=== PATIENT | male | born 1990 | race Caucasian/White ===

== ENCOUNTER 2024-05-09 12:51 | Emergency (ER) | payer OTHER, SELFPAY ==
--- NOTE | ~2024-05-09 | XR_ITS ---
XR foot RT min 3V Ordering provider: Jeremy Bedolla APRN History: . Rt 3RD AND 4TH TOE INJURY/PAIN . Comparison: None. FINDINGS: BONES: No acute fracture or dislocation. JOINT SPACES: Normal. No tarsal coalition. SOFT TISSUES: Normal. IMPRESSION: No acute osseous abnormality of the right foot. If Patient continues to have symptoms a repeat exam in 10 days is advised. Reviewed, dictated and finalized at location A. DESIGN ENGINEER
--- NOTE | 2024-05-09 12:54 | ED_ITS ---
HPI - Extremity Injury (Lower) General Chief Complaint: Extremity Injury, Lower Stated Complaint: Injured Right Foot Time Seen by Provider: 05/09/24 12:53 Source: patient Mode of arrival: ambulatory Limitations: no limitations History of Present Illness HPI Narrative: Eriberto is a 33-year-old male patient presenting to the clinic today with complaints of a right foot injury/pain-3rd/4thtoe pain. He reports 2 nights ago he stubbed his toe on the corner of a couch injuring the 3rd and 4th toe. Has bruising and mild swelling noted to the 4th toe as well as to the distal metatarsal. Pain with flexion extension of the 3rd and 4th toe. Review of Systems Review of Systems: Pertinent positives per HPI. Patient denies any fever, chills, rash, headache, visual changes, dizziness, cough, runny nose, sore throat, shortness of breath, chest pain, palpitations, nausea, vomiting, diarrhea, constipation, abdominal pain, or any urinary issues. PMFSH Comments At the time of my signature, I reviewed and agree with the nursing past medical, surgical, social, and family history. There is no relevant family history pertinent to the patient complaint. Exam Narrative: General: Well-developed, well nourished, in no apparent distress Head: Normocephalic, atraumatic. Cardio: Regular rate and rhythm, s1 and s2 normal, no murmur appreciated. Resp: Clear to auscultation bilaterally, no rhonchi, rales, wheezing or rubs. Musculoskeletal: No deformity, bruising with mild swelling known to the distal 4th metatarsal and over the 3rd and 4th phalanges, tender to palpation over the 3rd and 4th phalanges, unable to flex or extend the right 4th, muscle strength strong and equal, peripheral pulse strong, no edema, no cyanosis, normal gait and station Course Course Emergency Course: Portions of this record may have been created with voice recognition software. Level of Care: Express Care Visit Vital Signs Vital signs: Vital Signs Oxygen Delivery Room Air 05/09/24 13:11 Temperature 36.4 C 05/09/24 13:12 Pulse Rate 73 05/09/24 13:12 Respiratory Rate 16 05/09/24 13:12 Blood Pressure 116/72 05/09/24 13:12 Pulse Oximetry 98 05/09/24 13:12 Oxygen Delivery Room Air 05/09/24 13:11 Vital signs reviewed MDM - Extremity Injury (Lower) MDM Narrative Medical decision making narrative: At the time of visit patient is resting comfortably on the exam table. Patient appears to be nontoxic. Diagnostics: Right foot x-ray was performed and is negative for any sign of fracture or malalignment of the 3rd or 4th toe Plan: I suspect patient has right 3rd and 4th toe sprains/contusion. Recommend remberto taping the toes together. Supportive measures were discussed with the patient and they voiced understanding discharge instructions and agrees to treatment plan. Return precautions reviewed Differential Diagnosis Differential diagnosis: Likely fracture of toe and other (Contusion, foot fract ure, soft tissue swelling) Discharge Plan Discharge Clinical Impression: Contusion of toe of right foot Qualifiers: Encounter type: initial encounter Toe: lesser toe Damage to nail status: without damage Qualified Code(s): S90.121A - Contusion of right lesser toe(s) without damage to nail, initial encounter Sprain of toe, fourth, right Qualifiers: Encounter type: initial encounter Qualified Code(s): S93.504A - Unspecified sprain of right lesser toe(s), initial encounter Sprain of toe, third, right Qualifiers: Encounter type: initial encounter Qualified Code(s): S93.504A - Unspecified sprain of right lesser toe(s), initial encounter Patient Disposition: Home, Self-Care Condition: Stable Instructions: Antibiotic Form, Sprain (ED), Contusion in Adults (ED) Additional Instructions: X-rays negative for any sign of fracture or malalignment of the right foot I suspect you have a 3rd and 4th toe sprain/contusion. Rest, ice, elevate May remberto tape right 3rd and 4th toes together Tylenol/motrin for pain as discussed. Follow up with your PCP if symptoms persist more than 1 week. Patient Language: Hungarian Follow-up/Referrals: UNKNOWN,DOCTOR [Non-Staff] - Stand Alone Forms: Work/School Release IP Time of Disposition: 13:46 Quality NIHSS Nursing Documentation ED NIHSS nursing documentation: reviewed/agree
[2024-05-09 13:12] VITALS: BP 116/72; PULSE 73; RESP 16; TEMP 36.4; O2SAT 98
--- NOTE | 2024-05-09 14:02 | PC.NURSE ---
+PMS POST JULI TAPE
== END 2024-05-09 13:50 | disposition home or self-care (01) ==
PROVIDERS: Emergency Provider Nurse Practitioner Family
DX: S90.121A Contusion of right lesser toe(s) without damage to nail, initial encounter (principal); S93.504A Unspecified sprain of right lesser toe(s), initial encounter; W22.03XA Walked into furniture, initial encounter; I10 Essential (primary) hypertension; E78.00 Pure hypercholesterolemia, unspecified
CPT/HCPCS: 73630; 99203; G0463

== ENCOUNTER 2024-05-23 11:08 | Emergency (ER) | payer OTHER, SELFPAY ==
[2024-05-23] VITALS (16 sets, daily range): BP systolic 96–177; BP diastolic 62–99; PULSE 70–95; RESP 10–24; TEMP 36.6–36.9; O2SAT 95–100
--- NOTE | ~2024-05-23 | CT_ITS ---
EXAMINATION: CTA chest abdomen pelvis DATE: 05/23/2024 12:46 ELECTRIC CONTAINER TESTER INDICATION: Nausea vomiting and diarrhea with abdominal and back pain TECHNIQUE: Computed tomographic angiography (CTA) of the chest was performed, along with multiple con tiguous axial images of the abdomen and pelvis with 100 mL Omnipaque-350 intravenous contrast. The do se-length product was 996.94 mGy-cm. Maximum intensity projection 3D-reconstructions of the aorta and other arteries were constructed by the technologist on a separate workstation. FINDINGS/OBSERVATIONS: PULMONARY ARTERIES: No filling defect is identified within the main or proximal pulmonary artery. The main pulmonary artery is not enlarged. THORACIC AORTA: The great vessels are intact. Stent graft within the thoracic and abdominal aorta ending approximately 3 cm above the bifurcation. Please see additional comments within the vascular section described below for further evaluation. LUNGS: The lungs are clear. MEDIASTINUM: No morphologically suspicious or pathologically enlarged lymph nodes are identified with in the mediastinum or bilateral axilla. BONES OF THE CHEST: No acute fracture. No significant degenerative disease. No lytic or blastic lesions. HEART: The heart is of normal size, without pericardial effusion. LIVER: A 2.5 cm focus of decreased attenuation is identified within segment 8 of the liver with centripetal filling, most consistent with a flash filling hemangioma. The remainder of the liver enhances homogeneously and is not enlarged measuring 17 cm in longitudinal dimension. GALLBLADDER AND BILIARY SYSTEM: The gallbladder is distended, and otherwise unremarkable (without surrounding inflammatory change or calcified stones). PANCREAS: The pancreas enhances homogeneously without ductal dilatation. SPLEEN: Punctate calcifications identified within the splenic parenchyma, suggesting prior granulomatous dise ase. The remainder of the spleen otherwise enhances homogeneously and is not enlarged measuring 9 cm in longitudinal dimension. KIDNEYS: Multiple 1 and 2 mm stones are identified within the bilateral kidneys. The remainder of the bilateral kidneys otherwise enhance symmetrically without hydronephrosis or obst ructing renal calculi. ADRENAL GLANDS: Unremarkable. GASTROINTESTINAL TRACT: No mural thickening or surrounding inflammatory change is identified within the colon or the visualiz ed small bowel. Residual oral contrast is identified within the cecum and transverse colon suggesting additional imaging performed at an outside institution. APPENDIX: The air-filled appendix is of normal caliber (axial series, images 197 through 207). VASCULATURE: The abdominal aorta measures 36 mm in anterior to posterior dimension at the level of the diaphragmat ic hiatus and collapses to 18 mm at the level of the superior endplate of T12. A large endoleak is suspected at this level, with the sac supplying flow to the celiac axis. The origin of the celiac axis is narrowed, as it originates to the left of midline, and then extends to the right of midline to supply the upper mesenteric structures. The origins of the superior mesenteric artery and bilateral renal arteries originate within the stent . Below the stent at the level of L3 is an additional dissection which resolves in the proximal left il iac artery. No aneurysmal dilatation or additional dissection is present. LYMPH NODES: No pathologically enlarged or morphologically suspicious lymph nodes within the retroperitoneum or at the root of the mesentery. PELVIC STRUCTURES: The bladder is distended, and otherwise unremarkable. The prostate gland is not enlarged. BODY WALL AND MUSCULOSKELETAL: No significant degenerative disease within the lower thoracic or lumbosacral spine. 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 No secondary sequelae to suggest mesenteric ischemia is detected on today's study. Query the presence of prior imaging, as this is not an acute finding. These findings were discussed with SANCHEZ Orona at 1:00 PM on 05/23/2024. Reviewed, dictated and finalized at location A. 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 No secondary sequelae to suggest mesenteric ischemia is detected on today's john dy. Query the presence of prior imaging, as this is not an acute finding. These findings were discussed with SANCHEZ Orona at 1:00 PM on 05/23/2024.
[2024-05-23 11:41] LABS: Basophils Percent Auto 0.4 % (0.2-1.2); Eosinophils Percent Auto 0.2 % (0-4.4); Hematocrit 37.5 % (42.0-52.0); Hemoglobin 13.1 g/dL (14.0-18.0); Immature Granulocyte Absolute 0.05 K/mm3 (0.00-0.031); Immature Granulocyte Percent A 0.5 % (0-0.5); Lymphocytes Absolute Auto 1.43 K/mm3 (0.9-3.2); Lymphocytes Percent Auto 15.3 % (18.3-44.2); Mean Corpuscular HGB Conc 34.9 g/dl (32-36); Mean Corpuscular Hemoglobin 30.8 pg (26-34); Mean Corpuscular Volume 88.2 fl (80-100); Monocytes Percent Auto 10.1 % (2.6-8.5); Neutrophils Absolute Auto 6.9 K/mm3 (1.3-6.7); Neutrophils Percent Auto 73.5 % (45.5-73.1); Platelet Count Result 256 k/mm3 (150-375); Red Blood Count 4.25 M/mm3 (4.6-6.20); Red Cell Distribution Width 12.7 % (11.5-14.5); White Blood Count 9.4 K/mm3 (4.5-10.0)
--- NOTE | 2024-05-23 11:44 | ED.ABDPAIN ---
HPI - Abdominal Pain General Chief Complaint: Abdominal Pain <Angelica Michael PA-C - Last Filed: 05/23/24 16:56> Stated Complaint: back, abd pain <Angelica Michael PA-C - Last Filed: 05/23/24 16:56> Time Seen by Provider: 05/23/24 11:13 <Angelica Michael PA-C - Last Filed: 05/23/24 16:56> Source: patient <Angelica Michael PA-C - Last Filed: 05/23/24 16:56> Mode of arrival: ambulatory <Angelica Michael PA-C - Last Filed: 05/23/24 16:56> Limitations: no limitations <Angelica Michael PA-C - Last Filed: 05/23/24 16:56> History of Present Illness HPI narrative: This is a 34 year review of the emergency department for abdominal pain and back pain. Ongoing over the last 4 days. Reports associated nausea and vomiting. He has been evaluated at multiple ERs for this complaint without a cause found. He does have history of aortic dissection and kidney stones. Denies dysuria or hematuria. <Angelica Michael PA-C - Last Filed: 05/23/24 16:56> Related Data Allergies/Adverse Reactions: Allergies Allergy/AdvReac Type Severity Reaction Status Date / Time amoxicillin AdvReac Rash Verified 05/23/24 11:59 escitalopram (From Lexapro) AdvReac Swelling Verified 05/23/24 11:59 of Lip/Tongue/Throat <Angelica Michael PA-C - Last Filed: 05/23/24 16:56> Review of Systems Review of Systems: CONSTITUTIONAL: Denies fever GASTROINTESTINAL: Reports abdominal pain, nausea, vomiting. Denies diarrhea. GENITOURINARY: Denies dysuria or hematuria. <Angelica Michael PA-C - Last Filed: 05/23/24 16:56> All systems reviewed & are unremarkable except as noted in HPI and below <Angelica Michael PA-C - Last Filed: 05/23/24 16:56> PMFSH Past Medical History Medical History: Medical History (Updated 05/23/24 @ 16:56 by Angelica Michael PA-C) History of kidney stones History of aortic dissection <Angelica Michael PA-C - Last Filed: 05/23/24 16:56> Social History Social History: Social History (Updated 05/23/24 @ 11:45 by Angelica Michael PA-C) Substance use: current Substance use type: marijuana <Angelica Michael PA-C - Last Filed: 05/23/24 16:56> Exam Narrative: GENERAL: Uncomfortable appearing, well-nourished, and in no acute distress. HEAD: Normocephalic, atraumatic. EYES: EOMI. CHEST: Clear to auscultation. No respiratory distress. No wheezes rales or rhonchi HEART: Regular rate and rhythm. No murmur heard. Normal peripheral pulses. ABDOMEN: Soft, nondistended, normal active bowel sounds. Tender to palpation throughout the abdomen, without guarding EXTREMITIES: Normal range of motion. No edema. SKIN: Warm, dry, no rash. NEURO: No focal deficits. Alert and oriented x3. PSYCH: Normal mood and affect <Angelica Michael PA-C - Last Filed: 05/23/24 16:56> Course Course Emergency Course: patient updated on his workup and recommendation for transfer <Angelica Michael PA-C - Last Filed: 05/23/24 16:56> PROFESSOR OF BUSINESS ADMINISTRATION/PA Physician Supervision For this patient encounter, I reviewed the PROFESSOR OF BUSINESS ADMINISTRATION or PA documentation, treatment plan, and medical decision making; and I had [id number] time with this patient. <Narciso rBewster MD - Last Filed: 05/23/24 17:25> Consultations Consultation #1: Spoke with vascular surgery, Dr. Lamar about patient and workup. Will transfer patient for further evaluation and management. ICU fellow accepts patient as transfer <Angelica Michael PA-C - Last Filed: 05/23/24 16:56> Date: 05/23/24 <Angelica Michael PA-C - Last Filed: 05/23/24 16:56> Vital Signs Vital signs: Vital Signs Temperature 97.9 F 05/23/24 11:13 Pulse Rate 95 05/23/24 11:13 Respiratory Rate 14 05/23/24 11:13 Blood Pressure 151/81 H 05/23/24 11:13 Pulse Oximetry 97 05/23/24 11:13 Oxygen Delivery Room Air 05/23/24 11:13 Temperature 98.3 F 05/23/24 17:11 Pulse Rate 70 05/23/24 17:11 Respiratory Rate 12 05/23/24 17:11 Blood Pressure 104/72 05/23/24 17:11 Pulse Oximetry 96 05/23/24 17:11 Oxygen Delivery Room Air 05/23/24 11:13 <Angelica Michael PA-C - Last Filed: 05/23/24 16:56> Vital Signs Temperature 97.9 F 05/23/24 11:13 Pulse Rate 95 05/23/24 11:13 Respiratory Rate 14 05/23/24 11:13 Blood Pressure 151/81 H 05/23/24 11:13 Pulse Oximetry 97 05/23/24 11:13 Oxygen Delivery Room Air 05/23/24 11:13 Temperature 98.3 F 05/23/24 17:11 Pulse Rate 70 05/23/24 17:11 Respiratory Rate 12 05/23/24 17:11 Blood Pressure 104/72 05/23/24 17:11 Pulse Oximetry 96 05/23/24 17:11 Oxygen Delivery Room Air 05/23/24 11:13 <Narciso Brewster MD - Last Filed: 05/23/24 17:25> MDM - Abdominal Pain MDM Narrative Medical decision making narrative: Patient presents the emergency department for abdominal pain, nausea and vomiting. Ongoing over the last couple of days. He is he is afebrile and nontoxic appearing. Vitals are stable. Cbc without leukocytosis. Metabolic panel with mild hypokalemia. Urine without evidence of infection. CTA chest abdomen pelvis shows a type 2 endoleak. Spoke with vascular surgery, Dr. Lamar about patient and workup. Will transfer patient for further evaluation and management. ICU fellow accepts patient as transfer <Angelica Michael PA-C - Last Filed: 05/23/24 16:56> Differential Diagnosis Differential diagnosis: Likely diverticulitis and other (aortic dissection, kidney stone) <Angelica Michael PA-C - Last Filed: 05/23/24 16:56> Lab Data Attestation: I reviewed the patient's lab results. <Angelica Michael PA-C - Last Filed: 05/23/24 16:56> Result diagrams: 05/23/24 11:34 05/23/24 11:34 <Angelica Michael PA-C - Last Filed: 05/23/24 16:56> Labs: Lab Results 05/23/24 05/23/24 Range/Units 11:34 14:26 WBC 9.4 (4.5-10.0) K/mm3 RBC 4.25 L (4.6-6.20) M/mm3 Hgb 13.1 L (14.0-18.0) g/dL Hct 37.5 L (42.0-52.0) % MCV 88.2 (80-100) fl MCH 30.8 (26-34) pg MCHC 34.9 (32-36) g/dl RDW 12.7 (11.5-14.5) % Plt Count 256 (150-375) k/mm3 MPV 9.0 (7.4-10.4) fl Immature Gran % (Auto) 0.5 (0-0.5) % Neut % (Auto) 73.5 H (45.5-73.1) % Lymph % (Auto) 15.3 L (18.3-44.2) % [place] % (Auto) 10.1 H (2.6-8.5) % Eos % (Auto) 0.2 (0-4.4) % Baso % (Auto) 0.4 (0.2-1.2) % Lymph # (Auto) 1.43 (0.9-3.2) K/mm3 [place] # (Auto) 1.0 H (0.1-0.6) K/mm3 Eos # (Auto) 0.0 (0-0.3) K/mm3 Baso # (Auto) 0.0 (0.0-0.1) K/mm3 Abs Immat Gran (auto) 0.05 H (0.00-0.031) K/mm3 Absolute Neuts (auto) 6.9 H (1.3-6.7) K/mm3 Absolute Nucleated RBC 0.000 (0.0-0.012) K/mm3 Nucleated RBC % 0.0 (0.0-0.2) % Sodium 135 L (137-145) mmol/L Potassium 3.1 L (3.4-5.0) mmol/L Chloride 106 (98-107) mmol/L Carbon Dioxide 21 L (22-30) mmol/L Anion Gap 8 (4-12) mmol/L BUN 15 (9-20) mg/dL Creatinine 1.00 (0.7-1.3) mg/dL Estim Creat Clear Calc 94 ml/min Estimated GFR > 60 (59 - ) Glucose 94 (65-110) mg/dL Lactic Acid 0.6 L (0.7-2.0) mmol/L Calcium 9.5 (8.4-10.2) mg/dL Magnesium 1.9 (1.6-2.3) mg/dL Total Bilirubin 1.7 H (0.2-1.3) mg/dL AST 21 (17-59) U/L ALT 20 (6-50) U/L Alkaline Phosphatase 94 (38-126) U/L Total Protein 8.0 (6.3-8.2) g/dL Albumin 4.7 (3.5-5.1) g/dL Lipase 45 (23-300) U/L Urine Color Dark yellow (Yellow) Urine Appearance Clear (Clear) Urine pH 6.0 (5.0-9.0) Ur Specific [place] 1.022 (1.001-1.035) Urine Protein 1+ H (Negative) mg/dL Urine Glucose (UA) Negative (Negative) mg/dL Urine Ketones 1+ H (Negative) mg/dL Ur Blood (Man) Negative (Negative) Urine Nitrate Negative (Negative) Urine Bilirubin Negative (Negative) Urine Urobilinogen 1.0 (<2.0) mg/dL Add Ur Microanalysis Reviewed Leukocyte Esterase Rfl Negative (Negative) SHARON/UL Urine RBC 0-2 (0-2) /hpf Urine WBC 0-5 (0-3) /hpf Ur Squamous Epith Cells Occasional (Few) /hpf Urine Bacteria None seen /hpf Urine Casts 0-2 Urine Mucus Present /lpf <Angelica Michael PA-C - Last Filed: 05/23/24 16:56> Lab Results 05/23/24 05/23/24 Range/Units 11:34 14:26 WBC 9.4 (4.5-10.0) K/mm3 RBC 4.25 L (4.6-6.20) M/mm3 Hgb 13.1 L (14.0-18.0) g/dL Hct 37.5 L (42.0-52.0) % MCV 88.2 (80-100) fl MCH 30.8 (26-34) pg MCHC 34.9 (32-36) g/dl RDW 12.7 (11.5-14.5) % Plt Count 256 (150-375) k/mm3 MPV 9.0 (7.4-10.4) fl Immature Gran % (Auto) 0.5 (0-0.5) % Neut % (Auto) 73.5 H (45.5-73.1) % Lymph % (Auto) 15.3 L (18.3-44.2) % [place] % (Auto) 10.1 H (2.6-8.5) % Eos % (Auto) 0.2 (0-4.4) % Baso % (Auto) 0.4 (0.2-1.2) % Lymph # (Auto) 1.43 (0.9-3.2) K/mm3 [place] # (Auto) 1.0 H (0.1-0.6) K/mm3 Eos # (Auto) 0.0 (0-0.3) K/mm3 Baso # (Auto) 0.0 (0.0-0.1) K/mm3 Abs Immat Gran (auto) 0.05 H (0.00-0.031) K/mm3 Absolute Neuts (auto) 6.9 H (1.3-6.7) K/mm3 Absolute Nucleated RBC 0.000 (0.0-0.012) K/mm3 Nucleated RBC % 0.0 (0.0-0.2) % Sodium 135 L (137-145) mmol/L Potassium 3.1 L (3.4-5.0) mmol/L Chloride 106 (98-107) mmol/L Carbon Dioxide 21 L (22-30) mmol/L Anion Gap 8 (4-12) mmol/L BUN 15 (9-20) mg/dL Creatinine 1.00 (0.7-1.3) mg/dL Estim Creat Clear Calc 94 ml/min Estimated GFR > 60 (59 - ) Glucose 94 (65-110) mg/dL Lactic Acid 0.6 L (0.7-2.0) mmol/L Calcium 9.5 (8.4-10.2) mg/dL Magnesium 1.9 (1.6-2.3) mg/dL Total Bilirubin 1.7 H (0.2-1.3) mg/dL AST 21 (17-59) U/L ALT 20 (6-50) U/L Alkaline Phosphatase 94 (38-126) U/L Total Protein 8.0 (6.3-8.2) g/dL Albumin 4.7 (3.5-5.1) g/dL Lipase 45 (23-300) U/L Urine Color Dark yellow (Yellow) Urine Appearance Clear (Clear) Urine pH 6.0 (5.0-9.0) Ur Specific [place] 1.022 (1.001-1.035) Urine Protein 1+ H (Negative) mg/dL Urine Glucose (UA) Negative (Negative) mg/dL Urine Ketones 1+ H (Negative) mg/dL Ur Blood (Man) Negative (Negative) Urine Nitrate Negative (Negative) Urine Bilirubin Negative (Negative) Urine Urobilinogen 1.0 (<2.0) mg/dL Add Ur Microanalysis Reviewed Leukocyte Esterase Rfl Negative (Negative) SHARON/UL Urine RBC 0-2 (0-2) /hpf Urine WBC 0-5 (0-3) /hpf Ur Squamous Epith Cells Occasional (Few) /hpf Urine Bacteria None seen /hpf Urine Casts 0-2 Urine Mucus Present /lpf <Narciso Brewster MD - Last Filed: 05/23/24 17:25> Imaging Data Radiologist's impression: ITS Impressions Chest/Abdomen/Pelvis CTA 05/23/24 12:46 IMPRESSION: 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 No secondary sequelae to suggest mesenteric ischemia is detected on today's study. Query the presence of prior imaging, as this is not an acute finding. These findings were discussed with SANCHEZ Orona at 1:00 PM on 05/23/2024. 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 No secondary sequelae to suggest mesenteric ischemia is detected on today's study. Query the presence of prior imaging, as this is not an acute finding. These findings were discussed with SANCHEZ Orona at 1:00 PM on 05/23/2024. <Narciso Brewster MD - Last Filed: 05/23/24 17:25> Critical Care Time Critical Care Time Critical Care Time: No <Angelica Michael PA-C - Last Filed: 05/23/24 16:56> Discharge Plan Discharge Clinical Impression: Endoleak <Angelica Michael PA-C - Last Filed: 05/23/24 16:56> Patient Disposition: Acute Care Hospital <Angelica Michael PA-C - Last Filed: 05/23/24 16:56> Condition: Stable <Angelica Michael PA-C - Last Filed: 05/23/24 16:56> Patient Language: Thai <Angelica Michael PA-C - Last Filed: 05/23/24 16:56> Follow-up/Referrals: PHYSICIAN,STRATEGIC COMMUNICATIONS SPECIALIST [Non-Staff] - <Angelica Michael PA-C - Last Filed: 05/23/24 16:56>
[2024-05-23] MEDS: MORPHINE SULFATE (*CRX) 4 MG/ML INJ IV PUSH (11:52)
[2024-05-23] MEDS: ONDANSETRON INJ 4 MG/2 ML VIAL IV PUSH (11:57)
[2024-05-23 11:58] LABS: Alanine Aminotransferase 20 U/L (6-50); Albumin Level 4.7 g/dL (3.5-5.1); Alkaline Phosphatase 94 U/L (38-126); Anion Gap 8 mmol/L (4-12); Aspartate Amino Transferase 21 U/L (17-59); Bilirubin,Total 1.7 mg/dL (0.2-1.3); Blood Urea Nitrogen 15 mg/dL (9-20); Calcium 9.5 mg/dL (8.4-10.2); Carbon Dioxide 21 mmol/L (22-30); Chloride 106 mmol/L (98-107); Estimated CRCL calculation 94 ml/min; Estimated Glomerular Filt Rate > 60; Glucose 94 mg/dL (65-110); Lipase 45 U/L (23-300); Potassium 3.1 mmol/L (3.4-5.0); Sodium 135 mmol/L (137-145)
[2024-05-23 12:02] LABS: Add Urine Microscopic? YES; Appearance Urine Clear (Clear); Bacteria Urine None Seen /hpf; Bilirubin Urine Negative (Negative); Blood Urine Negative (Negative); Color Urine Dark Yellow (Yellow); Glucose Urine UA Negative (Negative); Ketones Urine 1+ mg/dL (Negative); Leukocyte Esterase Ur Negative LEU/UL (Negative); Mucus Urine Present /lpf; Need Manual Microscopic Reviewed; Nitrate Urine Negative (Negative); Non Pathogenic Casts 0-2; Protein Urine 1+ mg/dL (Negative); RBC Urine 0-2 /hpf (0-2); Specific Grav Ur 1.022 (1.001-1.035); Squamous Epithelial Cell Urine Occasional /hpf (Few); WBC Urine 0-5 /hpf (0-3)
[2024-05-23] MEDS: Please add drug allergy info to patient profile. 1 EACH XX (12:02)
[2024-05-23] MEDS: SODIUM CHLORIDE 0.9% IV 1,000 ML 999 ML IV CONT (12:10)
[2024-05-23] MEDS: HYDROmorphone HCL INJ (*CRX) 1 MG/ML SYR 0.5 MG IV PUSH ×5 (12:27→18:56)
[2024-05-23 12:29] LABS: Magnesium 1.9 mg/dL (1.6-2.3)
[2024-05-23] MEDS: LABETALOL HCL INJ 100 MG/20 ML VIAL 20 MG IV PUSH (14:05)
[2024-05-23 14:44] LABS: Lactic Acid Reflex 0.6 mmol/L (0.7-2.0)
[2024-05-23] MEDS: POTASSIUM CHLORIDE 20 MEQ ER TABLET 40 MEQ PO (17:03)
--- OUTSIDE RECORDS SUMMARY | 2024-05-30 05:33 | XMS_ITS | Clinical Summary ---
Author Organization [facility] Address [address] [place] [address] Care Team Providers Care [employer] Name Role Phone Unavailable Primary Care Provider Unavailabl e Source Comments [facility],non-owned Affiliates and Associated Physician Practices is amultiple site organization consisting of ambulatory clinics and hospital sitesin [place], [place], [place] and [place]. This disclosure is being madepursuant to the Care Everywhere program and may not contain all information available regarding this patient. Last updated 18.[facility] Social History Tobacco Use Types Packs/Day Years Used Date Smoking Tobacco: Never Assessed Sex and Gender Information Value Date Recorded Sex Assigned at Not on file Gender Identity Not on file Sexual Orientation Not on file Plan of Treatment Health Maintenance Due Date Last Done Comments HIV SCREENING 2007 HEPATITIS C SCREENING 05/07/2010 DTAP/TDAP/TD VACCINES (1 - Tdap) 2011 HEPATITIS B VACCINE (1 of 3 - 19+ 3-dose series) 2011 DEPRESSION SCREENING 05/30/2023 COVID-19 VACCINE (1 - 2023-2 5 season) 2024 INFLUENZA VACCINE (#1) 2024 ZOSTER VACCINE (1 of 2) 2042 HIB VACCINE Aged Out No longer eligi ble based on patient's age to complete this topic HPV VACCINE Aged Out No longer eligi ble based on patient's age to complete this topic MENINGOCOCCAL VACCINE Aged Out No pat matty eligible based on patient's age to complete this topic PNEUMOCOCCAL VACCINE Aged Out No long er eligible based on patient's age to complete this topic
--- OUTSIDE RECORDS SUMMARY | 2024-05-30 05:33 | XMS_ITS | Referral Summary ---
Author Organization [facility] Address [address] [place] [address] Care Team Providers Care Scout Professional Sports Name Role Phone Unavailable Primary Care Provider Unavailabl e Source Comments [facility],non-owned Affiliates and Associated Physician Practices is amultiple site organization consisting of ambulatory clinics and hospital sitesin [place], [place], [place] and [place]. This disclosure is being madepursuant to the Care Everywhere program and may not contain all information available regarding this patient. Last updated 18.[facility] [employer] Social History Tobacco Use Types Packs/Day Years Used Date Smoking Tobacco: Never Assessed Sex and Gender Information Value Date Recorded Sex Assigned at Not on file Gender Identity Not on file Sexual Orientation Not on file Plan of Treatment Not on file
--- OUTSIDE RECORDS SUMMARY | 2024-05-30 05:33 | XMS_ITS | Patient Health Summary ---
Author Organization [facility] [place] Address [address] [place] [address] Care Team Providers Care Leak Inspector Name Role Phone Unavailable Primary Care Provider Unavailabl e Note from [facility],non-owned Affiliates and Associated Physician Practices is amultiple site organization consisting of ambulatory clinics and hospital sitesin [place], [place], [place] and [place]. This disclosure is being madepursuant to the Care Everywhere program and may not contain all information available regarding this patient. Last updated 18.[facility] [place] Social History Tobacco Use Types Packs/Day Years Used Date Smoking Tobacco: Never Assessed Sex and Gender Information Value Date Recorded Sex Assigned at Not on file Gender Identity Not on file Sexual Orientation Not on file
--- OUTSIDE RECORDS SUMMARY | 2024-05-30 05:33 | XMS_ITS | Encounter Summary ---
Author Organization [facility] Address [address] [place] [address] Care Team Providers Care Rod Tape Operator Name Role Phone Unavailable Primary Care Provider Unavailabl e Encounter Details Date Type Department Care Team (Latest Contact Info) Description 08/15/2023 Travel Social History Tobacco Use Types Packs/Day Years Used Date Smoking Tobacco: Never Assessed Sex and Gender Information Value Date Recorded Sex Assigned at Not on file Gender Identity Not on file Sexual Orientation Not on file documented as of this encounter Plan of Treatment Not on file documented as of this encounter Visit Diagnoses Not on filedocumented in this encounter
--- OUTSIDE RECORDS SUMMARY | 2024-05-30 05:34 | XMS_ITS | Continuity of Care Document ---
Author Organization [facility] () Address [address] [place] [address] Care Team Providers Care Director Organizational Name Role Phone [facility] Urologist WARNER MARTINEZ Acid Bath Mixer FAUSTINO HERRERA Vascular Surgeon Assessment Encounter Date Assessment Date Assessment LastModified by Organization Details LastModified Time 03/14/2024 03/14/2024 45yo M presents for FU. Last seen by 10-26-23. Hx of depression, BP, aggression/anger , mcc, [aortic dissection, GFR=33, CR 2.59 (09/28)]; one psych hospitalization. Symptom Hx of disturbed family relations, impulsive/trigge red anger escalating to verbally abuse and fighting. Drugs THC daily, 2 cokes/d; Hx of cocaine abuse. C/C this visit is to establish care. Top patient priority is to let things go [reduce impulsive anger]. IMPRESSION: Mood disorder, CPTSD, difficulty controlling anger, insomnia. On edge young adult having much difficulty understanding the world/people around him, jose in communication. Constantly frustrated and angry d/t disagreement with others' stated reality. States I have a lot of thoughts in my head. May benefit from therapy but declines at this time. PLAN: - Target: borderline psychosis (thoughts in his head that he thinks he communicates.... some disassociation.. ..distorted impression of reality); will stay with meds he is on for now. Wants diff PCP. Will notify Dr. Strickland about Pt's request for transfer. - Continue: amitriptyline 25mg PO HS, quetiapine 50mg PO HS - INCREASE: lamotrigine from 25mg to 50mg PO qdfor mood/anger stability/labili ty cont latuda for anger, non liner communication to others - Verbally supported his efforts to keep himself healthier. - Reminded about ADR and SE of lamictal, jose rash; and of NMS. - Referred to noone (Pt declined talking to someone) - Consider: [Note to provider: lamictal, abilify, trazodone okay c CKD...BUT CR 1.03, gfr 100]. Adding trazodone, tapering amitriptyline. Maintain seroquel if Pt desires (e.g. for sleep or mood). Assess for BPD. - Labs: CR 1.03, gfr 100 (was CR 2.59 09/28, GFR=33. Freedom on 11/08.) - FU: 05/03 per Pt request.How is anger still? Bad dreams? taking meds consistently? [email or web address] Not available 03/28/2024 02:00:16 Plan of Treatment Reminders Order Date Submit Date Provider Last Modified By Organization Details Last Modified Time Details Appointments ANY 30 2024 02:30P M MARCELA CLEVELAND PA-C Not available Not available Not available NEW PATIENT 60 2024 09:30A M Payal lopez NP Not available Not available Not available Lab None recorded. Referral None recorded. Procedures None recorded. Surgeries None recorded. Imaging None recorded. Medication Orders lurasidon e 20 mg tablet 2023 [facility]/Pharmacy #[id number], [address], [place], [address], 03/14/2024 11:13:05 lamotrigi ne 25 mg tablet 2023 024 [facility]/Pharmacy #[id number], [address], [place], [address], 03/14/2024 11:13:03 Patient Targets Encounter Date Encounter Id Patient Goals Patient Target Last Modified By Organization Details Last Modified Time to let things go. [email or web address] Not available 03/14/2024 01:21:11 Patient Instructions Encounter Date Encounter Id Patient Instructions Last Modified By Organization Details Last Modified Time 03/14/2024 [id number] Pt. advised to call 911 or go to a local Emergency Department with any SI or HI, thoughts of self harm or any psychiatric emergency. Pt. is deemed safe and appropriate for continued out patient treatment. Pt. advised of the risk benefit ratio of medication, possible side effects and interactions of the meditations. Pt. wishes to continue with the treatment plan. Pt. advised to call or come in sooner than the scheduled appt. if there are any worsening of symptoms or problems with the medication. [email or web address] Not available 03/14/2024 01:21:11 Reason for Referral None Reported. Results Created Date Observation Date Name Description Value Unit Range Abnormal Flag Note LastModifiedBy Organization Detail LastModifiedTime 05/19/20 24 05/19/2024 CT, abdom en + pelvi s, w/ contr ast No observ ation [facility] ed[email or web address] [address] [place], [address], 05/21/2024 07:12:39 05/19/20 24 05/19/2024 CT, angio gram, abdom en + pelvi s, w/ contr ast No observ ation record ed. [email or web address] [place], [address], 05/21/2024 10:58:36 Result Notes None recorded. Problems Name Problem SNOMED Code Status Onset Date Resolution Date Notes Provider Name and Address Organization Details Recorded Time Vitiligo 02506832 Active 2020 Carl Strickland MD Attn: Daryn medina,[address] [facility], [place], [address], [place] [facility] 4 20:08:14 Depressive disorder 95014720 Active 2016 Carl Strickland MD Attn: Daryn medina,[address] [facility], [place], [address], [place] [facility] 4 20:08:14 History of head injury 419633684 Active 2020 Carl Strickland MD Attn: Joseemmie medina,[address] [facility], [place], [address], [place] [facility] 4 20:08:13 Headache 20834877 Active 2020 Carl Strickland MD Attn: Joseemmie medina,[address] [facility], [place], [address], [place] [facility] 4 20:08:14 Increased blood pressure 50632593 Active 2020 Carl Strickland MD Attn: Daryn medina,[address] [facility], [place], [address], [place] [facility] 4 20:08:14 History of calculus of kidney 448844053 Active 2020 Carl Strickland MD Attn: Daryn medina,[address] [facility], [place], [address], [place] [facility] 4 20:08:14 Fracture of hand 24012141 Active 2020 Carl Strickland MD Attn: Daryn medina,[address] [facility], [place], [address], [place] [facility] 4 20:08:14 Influenza vaccination declined 667734329 Active 2023 Carl Strickland MD Attn: Joseemmie medina,[address] [facility], [place], [address], [place] [facility] 4 20:08:14 SARS-CoV-2 vaccination declined 0858687031 Active 2023 Carl Strickland MD Attn: Joseemmie medina,[address] [facility], [place], [address], [place] [facility] 4 20:08:13 Essential hypertensio n 00002441 Active 2023 Carl Strickland MD Attn: Joseemmie medina,[address] [facility], [place], [address], [place] [facility] 4 20:08:14 Dissection of aortic arch 7970164728595 8 Active Carl Strickland MD Attn: Joseemmie medina,[address] [facility], [place], [address], [place] [facility] 4 20:08:14 Chest pain 71699165 Active Carl Strickland MD Attn: Joseemmie medina,[address] [facility], [place], [address], [place] [facility] 4 20:08:14 Chronic pain syndrome 010063249 Active 2023 Carl Strickland MD Attn: Daryn adam,[address] [facility], [place], [address], [place] [facility] 4 20:46:46 Neuropathy 289416759 Active 2023 Carl Strickland MD Attn: Daryn adam,[address] [facility], [place], [address], [place] [facility] 4 20:46:48 Physical decondition ing 7209714432224 2 Active 2023 Carl Strickland MD Attn: Daryn adam,[address] [facility], [place], [address], [place] [facility] 4 20:46:53 Chronic back pain 222180874 Active 2023 Carl Striclkand MD Attn: Daryn medina,[address] [facility], [place], [address], [place] [facility] 4 20:46:54 Renal insufficien cy 290636952 Active 2023 Carl Strickland MD Attn: Daryn g,[address] [facility], [place], [address], [place] [facility] 4 20:51:24 Complex posttraumat ic stress disorder 650061248 Active 2023 SERINA MICHAEL Attn: Daryn medina,[address] [facility], [place], [address], [place] [facility] 4 19:57:21 Difficulty controlling anger 329534626 Active 2023 SERINA MICHAEL Attn: Daryn medina,[address] [facility], [place], [address], [facility] - [facility] 4 19:57:23 Mood disorder 16610986 Active 2023 SERINA MICHAEL Attn: Daryn medina,[address] [facility], [place], [address], [facility] - [facility] 4 19:57:25 Persistent insomnia 116585319 Active 2023 SERINA MICHAEL Attn: Daryn medina,[address] [facility], [place], [address], [facility] - SI 18:51:00 Problem Notes None recorded. Procedures Surgical History Date Name Laterality Status Provider Name and Address Organization Details Recorded Time 07/04/19 cystoscopic ureteric stent procedure completed Carl Strickland MD Attn: Accounting,[address] [place], [place], [address] [place] [address], [facility] 07/13/2023 20:39:29 lithotripsy completed Carl Strickland MD Attn: Accounting,[address] [place], [place], [address] [place] [address], [facility] 07/13/2023 11:13:47 transcatheter aortic valve implantation completed Carl Strickland MD Attn: Accounting,[address] [place], [place], [address] [place] [address], [facility] - [facility] 07/13/2023 11:31:14 Imaging Results None recorded. Procedure Notes None recorded. Medical Equipment None Reported. Allergies Allergen ID Allergen Name Allergen Category Reaction Reaction Severity Criticality Documentation Date Start Date Code Code System Note Provider Name and Address Organization Details Recorded Time 16590602 lisinopri l medicatio n facial swelling Not available Not available 07/13/2023 07882 RxNorm cough , lip swell ing Carl Strickland MD Attn: Daryn medina,[address], [place], [address], [facility] - [facility] 4 20:08:02 701509 amoxicill in medicatio n rash Not available Not available 07/13/2023 723 RxNorm Carl Strickland MD Attn: Daryn medina,[address], [place], [address], [facility] - [facility] 4 20:08:02 Medications Name Sig Start Date Stop Date Status Note LastModified by Organization Details LastModified Time quetiapine 25 mg tablet TAKE 1 TABLET BY MOUTH EVERYDAY AT BEDTIME 12/06 completed Not Available Not Available Not Available cyclobenzap rine 10 mg tablet 09/28 completed Not Available Not Available Not Available carvedilol 25 mg tablet TAKE 1 TABLET BY MOUTH TWICE A DAY WITH MEALS 09/28 completed Not Available Not Available Not Available gabapentin 600 mg tablet TAKE 1 TABLET BY MOUTH THREE TIMES A DAY 09/28 completed Not Available Not Available Not Available carvedilol 12.5 mg tablet TAKE 1 TABLET BY MOUTH TWICE A DAY DIRECTED FOR 90 DAYS 09/28 completed Not Available Not Available Not Available labetalol 200 mg tablet TAKE 2 TABLETS BY MOUTH 2 TIMES A DAY. active Not Available Not Available No t Available oxybutynin chloride ER 10 mg tablet,exte nded release 24 hr Take 1 tablet every day by oral route for 14 days. active Not Available Not Available No t Available hydrocodone 5 mg-acetamin ophen 325 mg tablet TAKE 1 TABLET BY MOUTH EVERY 6 HOURS NEEDED FOR PAIN 10/25 completed Not Available Not Available Not Available meloxicam 15 mg tablet TAKE 1 TABLET BY MOUTH DAILY FOR 14 DAYS. 09/28 completed Not Available Not Available Not Available lisinopril 20 mg tablet 07/13 completed Not Available Not Available Not Available ondansetron HCl 4 mg tablet active Not Available Not Available Not Available hydralazine 25 mg tablet 07/13 completed Not Available Not Available Not Available amlodipine 5 mg tablet 07/13 completed Not Available Not Available Not Available acetaminoph en 500 mg tablet TAKE 2 TABLETS BY MOUTH EVERY 6 HOURS 10/25 completed Not Available Not Available Not Available lamotrigine 25 mg tablet TAKE 2 TABLETS BY MOUTH EVERY DAY DIRECTED FOR 30 DAYS active Not Available Not Available No t Available meloxicam 7.5 mg tablet TAKE 1 TABLET BY MOUTH EVERY DAY active Not Available Not Available No t Available hydrocortis one 2.5 % topical cream with perineal applicator INSERT INTO THE RECTUM 2 TIMES A DAY NEEDED FOR HEMORRHOI DS 09/28 completed Not Available Not Available Not Available amitriptyli ne 25 mg tablet TAKE 1 TABLET BY MOUTH EVERYDAY AT BEDTIME active Not Available Not Available No t Available methocarbam ol 750 mg tablet Take 1 tablet 3 times a day by oral route as needed for 30 days. 09/28 completed Not Available Not Available Not Available pravastatin 10 mg tablet TAKE 1 TABLET BY MOUTH EVERY DAY DIRECTED active Not Available Not Available No t Available Lidoderm 5 % topical patch APPLY 1 PATCH BY TOPICAL ROUTE ONCE DAILY (MAY WEAR UP TO 12HOURS.) 09/28 completed Not Available Not Available Not Available tamsulosin 0.4 mg capsule TAKE 1 CAPSULE BY MOUTH DAILY *TAKE WHILE STENT IS IN PLACE AND FOR THREE DAYS AFTER STENT REMOVAL 01/11 completed Not Available Not Available Not Available dicyclomine 20 mg tablet TAKE 1 TABLET BY MOUTH EVERY 6 HOURS NEEDED FOR ABDOMINAL PAIN active Not Available Not Available No t Available phenazopyri dine 100 mg tablet Take 2 tablets 3 times a day by oral route for 5 days. 09/28 completed Not Available Not Available Not Available amlodipine 10 mg tablet TAKE 1 TABLET BY MOUTH EVERY DAY active Not Available Not Available No t Available benzonatate 100 mg capsule TAKE 1 CAPSULE BY MOUTH EVERY 8 HOURS NEEDED FOR COUGH AND CONGESTIO N 12/31 completed Not Available Not Available Not Available hyoscyamine 0.125 mg disintegrat ing tablet Place 1 tablet every 6 hours by sublingua l route. 09/28 completed Not Available Not Available Not Available hydrocodone 7.5 mg-acetamin ophen 325 mg tablet TAKE 1 TABLET BY MOUTH EVERY 6 HOURS NEEDED FOR PAIN 07/13 completed Not Available Not Available Not Available ferrous sulfate 325 mg (65 mg iron) tablet TAKE 1 TABLET BY MOUTH THREE TIMES A DAY DIRECTED 09/28 completed Not Available Not Available Not Available hyoscyamine 0.125 mg sublingual tablet 09/28 completed Not Available Not Available Not Available gabapentin 300 mg capsule Take 1 capsule 3 times a day by oral route for 30 days. 09/28 completed Not Available Not Available Not Available aspirin 81 mg chewable tablet Chew 1 tablet every day by oral route as directed for 30 days. 10/25 completed Not Available Not Available Not Available capsaicin 0.025 % topical cream APPLY TO AFFECTED AREA TWICE A DAY 10/25 completed Not Available Not Available Not Available hydralazine 50 mg tablet TAKE 1 TABLET BY MOUTH 3 TIMES A DAY active Not Available Not Available No t Available ergocalcife rol (vitamin D2) 1,250 mcg (50,000 unit) capsule TAKE 1 CAPSULE BY MOUTH ONE TIME PER WEEK DIRECTED FOR 90 DAYS active Not Available Not Available No t Available lisinopril 10 mg-hydrochl orothiazide 12.5 mg tablet TAKE 1 TABLET BY MOUTH EVERY DAY DIRECTED 07/13 completed Not Available Not Available Not Available ibuprofen 600 mg tablet TAKE 1 TABLET BY MOUTH EVERY 8 HOURS NEEDED FOR PAIN 09/28 completed Not Available Not Available Not Available albuterol sulfate HFA 90 mcg/actuati on aerosol inhaler 10/25 completed Not Available Not Available Not Available oxybutynin chloride 5 mg tablet active Not Available Not Available No t Available ondansetron 4 mg disintegrat ing tablet Place 1 tablet every 8 hours by oral route as needed for 7 days. 10/25 completed Not Available Not Available Not Available cefdinir 300 mg capsule TAKE 1 CAPSULE BY MOUTH 2 TIMES A DAY FOR 26 DOSES 10/25 completed Not Available Not Available Not Available doxycycline hyclate 100 mg tablet TAKE 1 TABLET BY MOUTH TWICE A DAY 01/11 completed Not Available Not Available Not Available metoclopram radha 10 mg tablet TAKE 1 TABLET BY MOUTH EVERY 6 HOURS. 09/28 completed Not Available Not Available Not Available oxycodone 5 mg tablet TAKE 1 TABLET (5 MG TOTAL) BY MOUTH EVERY 4 (FOUR) HOURS NEEDED FOR PAIN 10/25 completed Not Available Not Available Not Available pregabalin 75 mg capsule 10/25 completed Not Available Not Available Not Available pregabalin 100 mg capsule TAKE 1 CAPSULE BY MOUTH TWICE A DAY active Not Available Not Available No t Available quetiapine 50 mg tablet TAKE 1 TABLET BY MOUTH EVERY DAY AT NIGHT active Not Available Not Available No t Available oxycodone 10 mg tablet TAKE 1 TABLET (10 MG TOTAL) BY MOUTH EVERY 6 HOURS NEEDED FOR PAIN FOR UP TO 3 DAYS 09/28 completed Not Available Not Available Not Available lurasidone 20 mg tablet Take 1 tablet every day by oral route with meal(s). active Not Available Not Available No t Available Stimulant Laxative Plus 8.6 mg-50 mg tablet 10/25 completed Not Available Not Available Not Available Vitals Date Recorded Body height Body mass index (BMI) Body weight Oxygen saturation Oxygen saturation in Arterial blood by Pulse oximetry Heart rate Systolic blood pressure Diastolic blood pressure Provider Name and Address Organization Details Last Updated DateTime 175.26 cm 31.5 kg/m2 13632.1 7 g 99 % 99 % 70 /min 136 mm[Hg] 90 mm[Hg] Kelsey Bearden MA [facility] 10:37:21 Social History Question Answer Notes LastModified by Organizat ion Details LastModified Time Tobacco Smoking Status Never Smoker Mellisa Burns MA null, [place] - [facility] 07/02/2020 08:39:57 Do You Have An Advance Directive? No Information not available 02/23/2024 What Is Your Level Of Alcohol Consumption? None Information not available 07/02/2020 Are You Blind Or Do You Have Difficulty Seeing? Yes Wears Glasses Information not available 02/23/2024 What Is Your Level Of Caffeine Consumption? Moderate [email or web address] Information not available 07/13/2023 How Much Tobacco Do You Chew? None Information not available 07/02/2020 In The 14 Days Before Symptom Onset, Have You Had Close Contact With A Laboratory-confi rmed COVID-19 While That Case Was Ill? No Information not available 07/02/2020 In The 14 Days Before Symptom Onset, Have You Had Close Contact With A Person Who Is Under Investigation For COVID-19 While That Person Was Ill? No Information not available 07/02/2020 Have You Been To An Area Known To Be High Risk For COVID-19? No Information not available 07/02/2020 Are You Currently Employed? Yes Information not available 02/23/2024 Are You Deaf Or Do You Have Serious Difficulty Hearing? No Information not available 02/23/2024 What Type Of Diet Are You Following? REGULAR Information not available 07/02/2020 Do You Or Have You Ever Used E-cigarettes Or Vape? 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 No Information not available 02/23/2024 Hard Of Hearing Or Deaf In One Or Both Ears? No Information not available 07/02/2020 Legally Blind In One Or Both Eyes? No Information not available 07/02/2020 Do You Have A High School Diploma Or Higher Education? Yes Information not available 07/02/2020 Do You Feel Unfairly Treated Due To Things Such As Race, Age, Gender, Disability Or Some Other Reason? No Information not available 07/02/2020 Do You Feel Physically And Emotionally Safe While Living At Home? Yes Information not available 07/02/2020 Do You Feel Physically And Emotionally Safe In Your Neighborhood Or Other Public Places? Yes Information not available 07/02/2020 Marital Status Single Informatio n not available 07/02/2020 What Was The Date Of Your Most Recent Tobacco Screening? 03/30/2024 Information not available 03/30/2024 How Many Children Do You Have? 7 Information not available 02/23/2024 Performs Monthly Self-breast Exam? No Information not available 07/02/2020 Do You Use Protection During Sex? No Information not available 02/23/2024 What Is Your Relationship Status? Single Information not available 02/23/2024 Are You Sexually Active? Yes Information not available 02/23/2024 Do You Have Smoke And Carbon Monoxide Detectors In Your Home? Yes Information not available 02/23/2024 Are You Passively Exposed To Smoke? No Information not available 02/23/2024 Do You Or Have You Ever Used Smokeless Tobacco? Never Used Smokeless Tobacco Information not available 07/02/2020 How Much Tobacco Do You Smoke? No Information not available 07/02/2020 General Stress Level Medium Information not available 07/02/2020 Do You Feel Stressed (tense, Restless, Nervous, Or Anxious, Or Unable To Sleep At Night)? [id number] Information not available 02/23/2024 Do You Use Any Illicit Or Recreational Drugs? Yes Marijuana Information not available 07/13/2023 Do You Use Sunscreen Routinely? No Information not available 02/23/2024 Has Tobacco Cessation Counseling Been Provided? No Information not available 07/13/2023 On What Date Was Tobacco Cessation Counseling Provided? 03/30/2024 Information not available 03/30/2024 Do You Or Have You Ever Used Any Other Forms Of Tobacco Or Nicotine? No Information not available 07/13/2023 Sex: Male Functional Status Question Answer Note LastModified by Organization D etails LastModified Time Are you able to care for yourself? Yes Information not available 02/23/2024 What is your exercise level? Moderate Information not available 02/23/2024 Mental Status None recorded. Family History Relationship Description Onset Age of this Age Resolved Age Notes LastModified by Organization Details LastModified Time Father Diabetes mellitus [email or web address] Not available 2020 08:39:42 Paternal Grandmother Diabetes mellitus [email or web address] Not available 2020 08:39:42 Medical History Condition Response Coronary Artery Disease N Other N Atrial Fibrillation N High Blood Pressure Y Thyroid Problems N Kidney or Bladder Problems Y Depression N COPD N Blood Clots N GI Problems N Skin Problems Y Anemia N Heart Attack ([place]) N Diabetes N Anxiety Disorder Y Muscle, Joint, or Bone Problems N Seizures/Epilepsy N Acid Reflux (GERD) N Cancer N Stroke N Allergies N Asthma N High Cholesterol N Hepatitis N Liver Disease N Headaches Y Osteoporosis N Heart Failure N Immunizations Vaccine Type Date Status Note Provider Nam e and Address Organization Details Recorded Time MMR 10/21/1993 MANDEEP Antunez, [place] - [facility] 07/13/2023 10:49:06 OPV 1992 MANDEEP Antunez [place] - [facility] 07/13/2023 10:49:06 OPV 1992 completed MANDEEP [place] [facility] 07/13/2023 10:49:06 OPV 1992 completed Stalin Lee [place] [facility] 07/13/2023 10:49:06 OPV 02/23/1994 completed Stalin [place] [facility] 07/13/2023 10:49:07 DTP-Hib 1992 completed Stalin [place] [facility] 07/13/2023 10:49:07 DTP-Hib 1992 completed Stalin [place] [facility] 07/13/2023 10:49:07 DTP-Hib 1992 completed Stalin [place] [facility] 07/13/2023 10:49:07 DTP-Hib 02/23/1994 completed MANDEEP [place] [facility] 07/13/2023 10:49:07 Hep B, adolescent or pediatric 1992 completed Stalin [place] [facility] 07/13/2023 10:49:07 Hep B, adolescent or pediatric 03/11/1993 completed MANDEEP [place] [facility] 07/13/2023 10:49:07 Hep B, adolescent or pediatric 1992 completed MANDEEP [place] [facility] 07/13/2023 10:49:07 Past Encounters Encounter ID Performer Location Encounter Start Date Encounter Closed Date Diagnosis/Indication Diagnosis SNOMED-CT Code Diagnosis ICD10 Code [id number] MD Cindi Morin (Adult Med) [address] [place] [id number] 02/23/2024 10:24:15 03/28/2024 13:28:59 Mood disorder 32418190 F39 Difficulty controlling anger 313800002 R45.4 [address] po sttraumatic stress disorder 689116538 F43.10 Persistent insomnia 1919 89912 G47.09 Hypercholesterolemia 136 31630 E78.00 Laboratory test result abnormal 000134842 R89.9 History of calculus of kidney 960525767 Z87.442 Chronic low back pain 27 6717590 M54.50 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 0441748584 80346 Z98.890 Essential hypertension 15442909 I10 History of fracture 3910 90416 Z87.81 Prediabetes 375788538 R7 3.03 Diet education 68021539 Z71.3 Long-term current use of cannabis 9927190531 98538 F12.10 [id number] SERINA NOBLE () [address] [place] [id number] 03/14/2024 10:24:02 03/28/2024 09:26:54 Mood disorder 60522943 F39 Difficulty controlling anger 604931213 R45.4 Complex po sttraumatic stress disorder 509351247 F43.10 Persistent insomnia 1919 25649 G47.09 Long-term drug therapy 304532569 Z79.899 Health Concerns Section Related Observation LastModified by Organization Detai ls LastModified Time None Recorded Concern Status LastModified by Organization Details LastModified Time None Recorded Payers Encounter Date Sequence Insurance Name Policy Number Policy Mon Covered Member ID Mon Member ID Guarantor Name 03/14/2024 1 [employer] [facility] OF [facility] ON OR AFTER 04/29/2020 (MEDICAID REPLACEMENT - HMO) Eriberto Chau [id number] Eriberto Chau Notes Date Note Type Note Provider Name and Address Organization Details Recorded Time 03/14/2024 text/html 45yo M presents for FU. Last seen by 10-26-23. Hx of depression, BP, aggression/anger, mcc, [aortic dissection, GFR=33, CR 2.59 (09/28)]; one psych hospitalization. Symptom Hx of disturbed family relations, impulsive/triggered anger escalating to verbally abuse and fighting. Drugs THC daily, 2 cokes/d; Hx of cocaine abuse. C/C this visit is to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
--- OUTSIDE RECORDS SUMMARY | 2024-05-30 05:34 | XMS_ITS | Data Portability ---
Author Organization [facility] Address [address] [place] [address] Care Team Providers Care Nurses Director Name Role Phone [facility] Urologist [phone] WARNER MILLAN Insurance Legal Assistant FAUSTINO HERRERA Vascular Surgeon Assessment Encounter Date Assessment Date Assessment LastModified by Organization Details LastModified Time 12/07/2023 12/07/2023 45yo M presents for FU. Last seen by 10-26-23. Hx of depression, BP, aggression/anger , fdc, [aortic dissection, GFR=33, CR 2.59 (09/28)]; one psych hospitalization. Symptom Hx of disturbed family relations, impulsive/trigge red anger escalating to verbally abuse and fighting. Drugs THC daily, 2 cokes/d; Hx of cocaine abuse. C/C this visit is to establish care. Top patient priority is to let things go [reduce impulsive anger]. IMPRESSION: On edge young adult having much difficulty understanding the world/people around him, jose in communication. Constantly frustrated and angry d/t disagreement with others' stated reality. States I have a lot of thoughts in my head. May benefit from therapy but declines at this time. PLAN: - Target: borderline psychosis (thoughts in his head that he thinks he communicates.... some disassociation.. ..distorted impression of reality) - Continue: amitriptyline 25mg PO HS, quetiapine 50mg PO HS - INCREASE: lamotrigine from 25mg to 50mg PO qd if have not already for mood/anger stability/labili ty - START: latuda for anger, non liner communication to others - Verbally supported his efforts to keep himself healthier. - Reminded about ADR and SE of lamictal, jose rash; and of NMS. - Referred to noone (Pt declined talking to someone) - Consider: [Note to provider: lamictal, abilify, trazodone okay c CKD]. a diagnosis of schzaff. consider adding trazodone, tapering amitriptyline. Maintain seroquel if Pt desires (e.g. for sleep or mood). Assess for BPD. - Labs: CR 2.59 09/28, GFR=33. Freedom on 11/08. - FU: 1mth per Pt request. How is anger/non linear thinking doing on latuda? [email or web address] Not available 12/07/2023 17:37:40 01/12/2024 01/12/2024 45yo M presents for FU. Last seen by 10-26-23. Hx of depression, BP, aggression/anger , fdc, [aortic dissection, GFR=33, CR 2.59 (09/28)]; one psych hospitalization. Symptom Hx of disturbed family relations, impulsive/trigge red anger escalating to verbally abuse and fighting. Drugs THC daily, 2 cokes/d; Hx of cocaine abuse. C/C this visit is to establish care. Top patient priority is to let things go [reduce impulsive anger]. IMPRESSION: On edge young adult having much difficulty [...] qd if have not already for mood/anger stability/labili ty cont latuda for anger, non liner communication to others - Verbally supported his efforts to keep himself healthier. - Reminded about ADR and SE of lamictal, jose rash; and of NMS. - Referred to noone (Pt declined talking to someone) - Consider: [Note to provider: ivy ley, trazodone okay c CKD]. Adding trazodone, tapering amitriptyline. Maintain seroquel if Pt desires (e.g. for sleep or mood). Assess for BPD. - Labs: CR 2.59 09/28, GFR=33. Freedom on 11/08. - FU: 1mth per Pt request.How is anger still? Bad dreams? [email or web address] Not available 01/31/2024 04:05:24 02/23/2024 02/23/2024 1st APPT WITH THIS PROVIDER - DUAL FM/ PT (initial BH) - 45yo M presents to establish medical care. Prev Dr. Strickland. FU: 03/30. How is back pain? review labs. [email or web address] Not available 03/11/2024 20:35:14 03/14/2024 03/14/2024 45yo M presents for FU. Last seen by 10-26-23. Hx of depression, BP, aggression/anger , fdc, [aortic dissection, GFR=33, CR 2.59 (09/28)]; one [...] Not available Not available Not available Lab CBC w/ manual diff 2023 024 [facility], [address] [place], [place] [address]bronson [address], [address], [place], [address], 04/05/2024 17:08:53 anemia panel 2023 024 [facility], [address] [place], [place] [address]bronson [address], [address], [place], [address], 03/08/2024 11:16:48 PT/PTT, plasma 2023 024 [facility], [address], [address], [place], [address], 03/08/2024 11:16:52 CMP, serum or plasma 2023 [facility], [address], [address], [place], [address], 03/08/2024 11:16:50 Referral None recorded. Procedures None recorded. Surgeries None recorded. Imaging None recorded. Medication Orders lurasidon e 20 mg tablet 2023 [id number], [address], [place], [address], 12/07/2023 11:14:23 lurasidon e 20 mg tablet 2023 024 [id number], [address], [place], [address], 01/31/2024 04:06:37 lurasidon e 20 mg tablet 2023 024 [id number], [address], [place], [address], 03/14/2024 11:13:05 lamotrigi ne 25 mg tablet 2023 024 [id number], [address], [place], [address], 03/14/2024 11:13:03 Patient Targets Encounter Date Encounter Id Patient Goals Patient Target Last Modified By Organization Details Last Modified Time to let things go. [email or web address] Not available 12/07/2023 00:11:36 to let things go. [email or web address] Not available 01/12/2024 10:53:07 to reduce chronic back pain [email or web address] Not available 03/11/2024 20:34:18 to let things go. [email or web address] Not available 03/14/2024 01:21:11 Patient Instructions Encounter Date Encounter Id Patient Instructions Last Modified By Organization Details Last Modified Time 12/07/2023 [id number] Pt. advised to call 911 or go [...] problems with the medication. [email or web address] Not available 12/07/2023 00:11:38 01/12/2024 [id number] Pt. advised to call 911 or go [...] problems with the medication. [email or web address] Not available 01/12/2024 10:53:07 02/23/2024 [id number] Reduce THC use [email or web address] Not дмитрий ellis 03/11/2024 20:34:01 FU: 03/30. How is back pain? review labs. Note reviewed. Discussed with Nurse practitioner. Radha Vail. 03/26/24 john Not available 03/26/2024 09:38:03 03/14/2024 [id number] Pt. advised to call 911 or go [...] Abnormal Flag Note LastModifiedBy Organization Detail LastModifiedTime 11/09/19 24 11/10/2023 BASIC METAB OLIC PANEL (7) glucose 76 mg/dL 70-99 Not Available [facility] ([facility]) [address], [place], [address], 11/10/2023 10:13:25 11/09/19 24 11/10/2023 BASIC METAB OLIC PANEL (7) BUN 15 mg/dL 6-20 Not Available [facility] ([facility]) [address] [place], [address], 11/10/2023 10:13:25 11/09/19 24 11/10/2023 BASIC METAB OLIC PANEL (7) creatinine 1.03 mg/dL 0.76-1 .27 Not Available [facility] ([facility]) [address] [place], [address], 11/10/2023 10:13:25 11/09/19 24 11/10/2023 BASIC METAB OLIC PANEL (7) eGFR 100 mL/mi n/1.7 3 >59 Not Available [facility] ([facility]) [address] [place], [address], 11/10/2023 10:13:25 11/09/19 24 11/10/2023 BASIC METAB OLIC PANEL (7) BUN/creatini ne ratio 15 9-20 Not Available [facility] ([facility]) [address] [place], [address], 11/10/2023 10:13:25 11/09/19 24 11/10/2023 BASIC METAB OLIC PANEL (7) sodium 139 mmol/ L 134-14 4 Not Available [facility] ([facility]) [address] [place], [address], 11/10/2023 10:13:25 11/09/19 24 11/10/2023 BASIC METAB OLIC PANEL (7) potassium 4.1 mmol/ L 3.5-5. 2 Not Available [facility] ([facility]) [address] [place], [address], 11/10/2023 10:13:25 11/09/19 24 11/10/2023 BASIC METAB OLIC PANEL (7) chloride 105 mmol/ L 96-106 Not Available [facility] ([facility]) [address] [place], [address], 11/10/2023 10:13:25 11/09/19 24 11/10/2023 BASIC METAB OLIC PANEL (7) carbon dioxide, total 21 mmol/ L 20-29 Not Available [facility] ([facility]) [address], [place], [address], 11/10/2023 10:13:25 12/06/19 24 12/06/2023 LIPID PANEL cholesterol, total 229 mg/dL 100-19 9 above high normal Not Available [facility] [address] [place], [address], 12/07/2023 03:08:07 12/06/19 24 12/06/2023 LIPID PANEL triglyceride s 184 mg/dL 0-149 above high normal Not Available [facility] [address] [place], [address], 12/07/2023 03:08:07 12/06/19 24 12/06/2023 LIPID PANEL HDL cholesterol 39 mg/dL 40-999 below low normal Not Available [facility] [address] [place], [address], 12/07/2023 03:08:07 12/06/19 24 12/06/2023 LIPID PANEL VLDL cholesterol roseann 37 mg/dL 5-[address] [facility] [address] [place], [address], 12/07/2023 03:08:07 12/06/19 24 12/06/2023 LIPID PANEL LDL chol calc (nih) 178 mg/dL 0-99 above high normal Not Available [facility] [address] [place] [address], [address], 12/07/2023 03:08:07 12/06/19 24 12/06/2023 RENAL PANEL (10) glucose 99 mg/dL 70-99 Not Available [facility] [address] [place], [address], 12/07/2023 03:08:08 12/06/19 24 12/06/2023 RENAL PANEL (10) BUN 16 mg/dL 6-20 Not Available [facility] [address] [place] [address], [address], 12/07/2023 03:08:08 12/06/19 24 12/06/2023 RENAL PANEL (10) creatinine 0.90 mg/dL 0.76-1 .27 Not Available [facility] [address] [place] [address], [address], 12/07/2023 03:08:08 12/06/19 24 12/06/2023 RENAL PANEL (10) eGFR 117 >=60 Units for eGFR value s are mL/mi n/1.7 3 The eGFR Calcu latio n has not been valid ated for patie nts under the age of 18. If test resul ts are displ ayed for a patie nt under the age of 18, disre kai that value . Not Available [facility] [address] [place] [address], [address], 12/07/2023 03:08:08 12/06/19 24 12/06/2023 RENAL PANEL (10) BUN/creatini ne ratio 18 9-[address] [facility] [address] [place], [address], 12/07/2023 03:08:08 12/06/19 24 12/06/2023 RENAL PANEL (10) sodium 141 mmol/ L 134-14 4 Not Available [facility] [address] [place], [address], 12/07/2023 03:08:08 12/06/19 24 12/06/2023 RENAL PANEL (10) potassium 4.0 mmol/ L 3.5-5. 2 Not Available [facility] [address] [place], [address], 12/07/2023 03:08:08 12/06/19 24 12/06/2023 RENAL PANEL (10) chloride 106 mmol/ L 96-106 Not Available [facility] [address] [place], [address], 12/07/2023 03:08:08 12/06/19 24 12/06/2023 RENAL PANEL (10) carbon dioxide, total 23 mmol/ L 20-29 Not Available [facility] [address] [place] [address], [address], 12/07/2023 03:08:08 12/06/19 24 12/06/2023 RENAL PANEL (10) calcium 9.3 mg/dL 8.7-10 .2 Not Available [facility] [address] [place], [address], 12/07/2023 03:08:08 12/06/19 24 12/06/2023 RENAL PANEL (10) phosphorus 3.5 mg/dL 2.8-4. 1 Not Available [facility] [address] [place], [address], 12/07/2023 03:08:08 12/06/19 24 12/06/2023 RENAL PANEL (10) albumin 4.4 g/dL 4.1-5. 1 Not Available [facility] [address] [place], [address], 12/07/2023 03:08:08 12/06/19 24 12/06/2023 CBC, PLATE LET, NO DIFFE RENTI AL WBC 6.0 x10e3 /uL 3.4-10 .8 Not Available [facility] [address] [place], [address], 12/07/2023 03:08:09 12/06/19 24 12/06/2023 CBC, PLATE LET, NO DIFFE RENTI AL RBC 3.96 x10e6 /uL 4.14-5 .80 below low normal Not Available [facility] [address] [place], [address], 12/07/2023 03:08:09 12/06/19 24 12/06/2023 CBC, PLATE LET, NO DIFFE RENTI AL hemoglobin 11.8 g/dL 13.0-1 7.7 below low normal Not Available [facility] [address] [place], [address], 12/07/2023 03:08:09 12/06/19 24 12/06/2023 CBC, PLATE LET, NO DIFFE RENTI AL hematocrit 37.1 % 37.5-5 1.0 below low normal Not Available [facility] [address] [place], [address], 12/07/2023 03:08:09 12/06/1912/06/2023 CBC, PLATE LET, NO DIFFE RENTI AL MCV 94 fL 79-97 Not Available [facility] [address] [place], [address], 12/07/2023 03:08:09 12/06/19 24 12/06/2023 CBC, PLATE LET, NO DIFFE RENTI AL MCH 29.8 pg 26.6-3 3.0 Not Available [facility] [address] [place], [address], 12/07/2023 03:08:09 12/06/1912/06/2023 CBC, PLATE LET, NO DIFFE RENTI AL MCHC 31.8 g/dL 31.5-3 5.7 Not Available [facility] [address] [place], [address], 12/07/2023 03:08:09 12/06/19 24 12/06/2023 CBC, PLATE LET, NO DIFFE RENTI AL RDW 14.8 % 11.5-1 4.5 above high normal Not Available [facility] [address] [place], [address], 12/07/2023 03:08:09 12/06/19 24 12/06/2023 CBC, PLATE LET, NO DIFFE RENTI AL platelets 300 x10e3 /uL 150-45 0 Mean Plate let Volum e 9.2 fL 8.9-1 2.7 N Not Available [facility] [address] [place], [address], 12/07/2023 03:08:09 12/06/19 24 12/06/2023 CBC, PLATE LET, NO DIFFE RENTI AL NRBC 0 % 0-0 Not Available [facility] [address] [place], [address], 12/07/2023 03:08:09 12/06/19 24 12/07/2023 TSH+F REE T4 TSH 1.950 uIU/m L 0.450- 4.500 Not Available [facility] ([facility]) [address] [place], [address], 12/07/2023 14:14:40 12/06/19 24 12/07/2023 TSH+F REE T4 T4,free(dire ct) 1.15 NG/dL 0.82-1 .77 Not Available [facility] ([facility]) [address] [place], [address], 12/07/2023 14:14:40 12/06/19 24 12/07/2023 CMP14 +EGFR glucose 97 mg/dL 70-99 Not Available [facility] ([facility]) [address] [place], [address], 12/07/2023 14:14:41 12/06/19 24 12/07/2023 CMP14 +EGFR BUN 16 mg/dL 6-20 Not Available [facility] ([facility]) [address], [place], [address], 12/07/2023 14:14:41 12/06/19 24 12/07/2023 CMP14 +EGFR creatinine 0.92 mg/dL 0.76-1 .27 Not Available [facility] ([facility]) [address], [place], [address], 12/07/2023 14:14:41 12/06/19 24 12/07/2023 CMP14 +EGFR eGFR 114 mL/mi n/1.7 3 >59 Not Available [facility] ([facility]) [address], [place], [address], 12/07/2023 14:14:41 12/06/19 24 12/07/2023 CMP14 +EGFR BUN/creatini ne ratio 17 9-20 Not Available [facility] ([facility]) [address], [place], [address], 12/07/2023 14:14:41 12/06/19 24 12/07/2023 CMP14 +EGFR sodium 141 mmol/ L 134-14 4 Not Available [facility] ([facility]) [address], [place], [address], 12/07/2023 14:14:41 12/06/19 24 12/07/2023 CMP14 +EGFR potassium 4.0 mmol/ L 3.5-5. 2 Not Available [facility] ([facility]) [address] [place], [address], 12/07/2023 14:14:41 12/06/19 24 12/07/2023 CMP14 +EGFR chloride 103 mmol/ L 96-106 Not Available [facility] ([facility]) [address] [place], [address], 12/07/2023 14:14:41 12/06/19 24 12/07/2023 CMP14 +EGFR carbon dioxide, total 18 mmol/ L 20-29 below low normal Not Available [facility] ([facility]) [address], [place], [address], 12/07/2023 14:14:41 12/06/19 24 12/07/2023 CMP14 +EGFR calcium 8.9 mg/dL 8.7-10 .2 Not Available [facility] ([facility]) [address], [place], [address], 12/07/2023 14:14:41 12/06/19 24 12/07/2023 CMP14 +EGFR protein, total 7.6 g/dL 6.0-8. 5 Not Available [facility] ([facility]) [address], [place], [address], 12/07/2023 14:14:41 12/06/19 24 12/07/2023 CMP14 +EGFR albumin 4.4 g/dL 4.1-5. 1 Not Available [facility] ([facility]) [address] [place], [address], 12/07/2023 14:14:41 12/06/19 24 12/07/2023 CMP14 +EGFR globulin, total 3.2 g/dL 1.5-4. 5 Not Available [facility] ([facility]) [address] [place], [address], 12/07/2023 14:14:41 12/06/19 24 12/07/2023 CMP14 +EGFR bilirubin, total 0.3 mg/dL 0.0-1. 2 Not Available [facility] ([facility]) [address] [place], [address], 12/07/2023 14:14:41 12/06/19 24 12/07/2023 CMP14 +EGFR alkaline phosphatase 105 IU/L 44-121 Not Available [facility]) [address], [place], [address], 12/07/2023 14:14:41 12/06/19 24 12/07/2023 CMP14 +EGFR AST (SGOT) 11 IU/L 0-40 Not Available [facility] ([facility]) [address], [place], [address], 12/07/2023 14:14:41 12/06/19 24 12/07/2023 CMP14 +EGFR ALT (SGPT) 17 IU/L 0-44 Not Available [facility] ([facility]) [address] [place], [address], 12/07/2023 14:14:41 12/06/19 24 12/07/2023 VITAM IN B12 AND FOLAT E vitamin B12 323 pg/mL 232-12 45 Not Available [facility] ([facility]) [address], [place], [address], 12/07/2023 14:14:41 12/06/19 24 12/07/2023 VITAM IN B12 AND FOLAT E folate (folic acid), serum 4.3 NG/mL >3.0 A serum folat e zina ntrat ion of less than 3.1 ng/mL is consi dered to repre sent clini roseann defic iency . Not Available [facility] ([facility]) [address], [place], [address], 12/07/2023 14:14:41 12/06/19 24 12/07/2023 HEMOG LOBIN A1C hemoglobin A1C 5.7 % 4.8-5. 6 above high normal Predi abete s: 5.7 - 6.4 Diabe cristina: >6.4 Glyce sally contr ol for adult s with diabe cristina: <7.0 Not Available [facility] ([facility]) [address], [place], [address], 12/07/2023 14:14:42 07/09/20 24 12/07/2023 VITAM IN D, 25-HY DROXY vitamin D, 25-hydroxy 25.1 NG/mL 30.0-1 00.0 below low normal Vitam in D defic iency has been defin ed by the Insti tute of Medic ine and an Endoc rine Socie ty pract ice guide line as a level of serum 25-OH vitam in D less than 20 ng/mL (1,2) . The Endoc rine Socie ty went on to furth er defin e vitam in D insuf ficie ncy as a level betwe en 21 and 29 ng/mL (2). 1. IOM (Inst itute of Medic ine). 2010. Yusra ry refer ence intaliyah es for calci um and D. Jacky fenton [place]: [facility] . 2. Manish nicholson [place], Darline power [place], Maki off-F errar i TILLMAN, et al. Evalu ation , treat ment, and preve ntion of vitam in D defic iency : an Endoc rine Socie ty clini roseann pract ice guide line. JCEM. 2010; 96(7) :1911 -30. Not Available [facility] ([facility]) [address], [place], [address], 12/07/2023 14:14:43 01/12/20 24 01/19/2024 COMPL IANCE DRUG EKTA SIS, UR summary report (summary) FINAL ===== ===== ===== ===== ===== ===== ===== ===== ===== ===== ===== ===== ===== === TOXAS SURE COMP DRUG EKTA SIS,U R ===== ===== ===== ===== ===== ===== ===== ===== ===== ===== ===== ===== ===== === Test Resul t Flag Units Drug Prese nt Carbo xy-TH C >662 ng/mg creat Carbo xy-TH C is a metab olite of tetra hydro canna binol (THC) . Sourc e of THC is most commo nly herba l marij uana or marij uana- based produ cts, but THC is also prese nt in a sched uled presc ripti on medic ation . Trace amoun ts of THC can be prese nt in hemp and canna bidio l (CBD) produ cts. This test is not inten ded to disti nguis h betwe en delta -9-te trahy droca nnabi nol, the predo minan t form of THC in most herba l or marij uana- based produ cts, and delta -8-te trahy droca nnabi nol. Prega balin PRESE NT Amitr iptyl ine PRESE NT Nortr iptyl ine PRESE NT Nortr iptyl ine may be admin ister ed as a presc ripti on drug; it is also an expec jose f metab olite of amitr iptyl ine. ===== ===== ===== ===== ===== ===== ===== ===== ===== ===== ===== ===== ===== === Test Resul t Flag Units Ref Range Creat inine 151 mg/dL >=20 ===== ===== ===== ===== ===== ===== ===== ===== ===== ===== ===== ===== ===== === Decla red Medic ation s: Medic ation list was not provi ded. ===== ===== ===== ===== ===== ===== ===== ===== ===== ===== ===== ===== ===== === For clini roseann consu ltati on, pleas e call [phone]. ===== ===== ===== ===== ===== ===== ===== ===== ===== ===== ===== ===== ===== === Not Available [facility] ([facility]) [address] [place], [address], 01/19/2024 20:10:08 01/12/20 24 01/19/2024 COMPL IANCE DRUG EKTA SIS, UR pdf . Not Available [facility] ([facility]) [address] [place], [address], 01/19/2024 20:10:08 03/07/20 24 03/08/2024 FE+TI BC+FE R+B12 +FOLI C+RET IC vitamin B12 298 pg/mL 232-12 45 Not Available [facility] ([facility]) [address], [place], [address], 03/08/2024 11:16:48 03/07/2003/08/2024 FE+TI BC+FE R+B12 +FOLI C+RET IC folate (folic acid), serum 8.7 NG/mL >3.0 A serum folat e zina ntrat ion of less than 3.1 ng/mL is consi dered to repre sent clini roseann defic iency . Not Available [facility] ([facility]) [address], [place], [address], 03/08/2024 11:16:48 03/07/20 24 03/08/2024 FE+TI BC+FE R+B12 +FOLI C+RET IC ferritin 40 NG/mL 30-400 Not Available [facility] ([facility]) [address] [place], [address], 03/08/2024 11:16:48 03/07/20 24 03/08/2024 FE+TI BC+FE R+B12 +FOLI C+RET IC reticulocyte count 1.7 % 0.6-2. 6 Not Available [facility] ([facility]) [address] [place], [address], 03/08/2024 11:16:48 03/07/20 24 03/08/2024 FE+TI BC+FE R+B12 +FOLI C+RET IC iron bind.cap.(TI BC) 331 ug/dL 250-45 0 Not Available [facility] ([facility]) [address] [place], [address], 03/08/2024 11:16:48 03/07/2003/08/2024 FE+TI BC+FE R+B12 +FOLI C+RET IC UIBC 257 ug/dL 111-34 3 Not Available [facility] ([facility]) [address] [place], [address], 03/08/2024 11:16:48 03/07/20 24 03/08/2024 FE+TI BC+FE R+B12 +FOLI C+RET IC iron 74 ug/dL 38-169 Not Available [facility] ([facility]) [address] [place], [address], 03/08/2024 11:16:48 03/07/20 24 03/08/2024 FE+TI BC+FE R+B12 +FOLI C+RET IC iron saturation 22 % 15-55 Not Available [facility] ([facility]) [address] [place], [address], 03/08/2024 11:16:48 03/07/20 24 03/08/2024 CMP14 +EGFR glucose 69 mg/dL 70-99 below low normal Not Available [facility] ([facility]) [address] [place], [address], 03/08/2024 11:16:50 03/07/20 24 03/08/2024 CMP14 +EGFR BUN 23 mg/dL 6-20 above high normal Not Available [facility] ([facility]) [address], [place], [address], 03/08/2024 11:16:50 03/07/20 24 03/08/2024 CMP14 +EGFR creatinine 1.03 mg/dL 0.76-1 .27 Not Available [facility] ([facility]) [address], [place], [address], 03/08/2024 11:16:50 03/07/20 24 03/08/2024 CMP14 +EGFR eGFR 100 mL/mi n/1.7 3 >59 Not Available [facility] ([facility]) [address] [place], [address], 03/08/2024 11:16:50 03/07/20 24 03/08/2024 CMP14 +EGFR BUN/creatini ne ratio 22 9-20 above high normal Not Available [facility] ([facility]) [address], [place], [address], 03/08/2024 11:16:50 03/07/20 24 03/08/2024 CMP14 +EGFR sodium 139 mmol/ L 134-14 4 Not Available [facility] ([facility]) [address], [place], [address], 03/08/2024 11:16:50 03/07/20 24 03/08/2024 CMP14 +EGFR potassium 4.2 mmol/ L 3.5-5. 2 Not Available [facility] ([facility]) [address] [place], [address], 03/08/2024 11:16:50 03/07/20 24 03/08/2024 CMP14 +EGFR chloride 102 mmol/ L 96-106 Not Available [facility] ([facility]) [address] [place], [address], 03/08/2024 11:16:50 10/09/03/08/2024 CMP14 +EGFR carbon dioxide, total 23 mmol/ L 20-29 Not Available [facility] ([facility]) [address], [place], [address], 03/08/2024 11:16:50 03/07/20 24 03/08/2024 CMP14 +EGFR calcium 9.4 mg/dL 8.7-10 .2 Not Available [facility] ([facility]) [address], [place], [address], 03/08/2024 11:16:50 03/07/20 24 03/08/2024 CMP14 +EGFR protein, total 7.4 g/dL 6.0-8. 5 Not Available [facility] ([facility]) [address], [place], [address], 03/08/2024 11:16:50 03/07/20 24 03/08/2024 CMP14 +EGFR albumin 4.5 g/dL 4.1-5. 1 Not Available [facility] ([facility]) [address], [place], [address], 03/08/2024 11:16:50 03/07/20 24 03/08/2024 CMP14 +EGFR globulin, total 2.9 g/dL 1.5-4. 5 Not Available [facility] ([facility]) [address] [place], [place], [address], 03/08/2024 11:16:50 03/07/20 24 03/08/2024 CMP14 +EGFR bilirubin, total 0.4 mg/dL 0.0-1. 2 Not Available [facility] ([facility]) [address] [place], [address], 03/08/2024 11:16:50 03/07/20 24 03/08/2024 CMP14 +EGFR alkaline phosphatase 88 IU/L 44-121 Not Available [facility] ([facility]) [address] [place], [address], 03/08/2024 11:16:50 03/07/20 24 03/08/2024 CMP14 +EGFR AST (SGOT) 13 IU/L 0-40 Not Available [facility] ([facility]) [address] [place], [address], 03/08/2024 11:16:50 03/07/20 24 03/08/2024 CMP14 +EGFR ALT (SGPT) 17 IU/L 0-44 Not Available [facility] ([facility]) [address], [place], [address], 03/08/2024 11:16:50 03/07/20 24 03/08/2024 PT AND PTT INR 1.0 0.9-1. 2 Refer ence inter karrie is for non-a ntico agula jose f patie nts. Sugge sted INR thera peuti c range for Vitam in K antag onist thera py: Stand gaurav Dose (mode rate inten sity thera peuti c range ): 2.0 - 3.0 Highe r inten sity thera peuti c range 2.5 - 3.5 Not Available [facility] ([facility]) [address], [place], [address], 03/08/2024 11:16:51 03/07/20 24 03/08/2024 PT AND PTT prothrombin time 10.9 sec 9.1-12 .0 Not Available [facility] ([facility]) [address] [place], [address], 03/08/2024 11:16:51 03/07/20 24 03/08/2024 PT AND PTT APTT 28 sec 24-33 This test has not been valid ated for monit ori unfra ction ated hepar in thera py. aPTT- based thera peuti c range s for unfra ction ated hepar in thera py have not been estab chyna valentino For gener al guide lines on Hepar in monit oring , refer to the [facility] Direc tory of Kaleb locke. Not Available [facility] ([facility]) [address], [place], [address], 03/08/2024 11:16:51 05/19/20 24 05/19/2024 CT, abdom en + pelvi s, w/ contr ast No observ ation record ed. oajao [facility] [address] [place], [address], 05/21/2024 07:12:39 05/19/20 24 05/19/2024 CT, angio gram, abdom en + pelvi s, w/ contr ast No observ ation record ed. [email or web address] [place], [address], 05/21/2024 10:58:36 Result Notes None recorded. Problems Name Problem SNOMED Code Status Onset Date Resolution Date Notes Provider Name and Address Organization Details Recorded Time Vitiligo 63659826 Active 2020 Carl Strickland MD Attn: Daryn medina,[address] [facility], [place], [address], [facility] 4 20:08:14 Depressive disorder 75565710 Active 2016 Carl Striclkand MD Attn: Daryn medina,[address]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 down, when gets upset immediately [...] talking to someone)- Consider: [Note to provider: ivy ley trazoalondrae okay c CKD]. Adding trazodone, tapering amitriptyline. Maintain seroquel if Pt desires (e.g. for sleep or mood).- Labs: CR 2.59 09/28, GFR=33. Order baseline labs at next visit.- FU: 11/08 1100. How is lamictal working for anger? Assess for BPD. When is PCP FU? nephro appt? Obtain labs. STALIN Khalil, JAYLIN-C Attn: Accounting,[address] [facility], [place], [address], [facility] 03/28/2024 02:01:31
--- OUTSIDE RECORDS SUMMARY | 2024-05-30 05:34 | XMS_ITS | Clinical Summary ---
Author Organization [facility] [address] [place] [address] Care Team Providers Care Loss Prevention Leader Name Role Phone Leo Manzano MD Unavailable [phone] Carl Strickland MD Primary Care Provider Allergies Active Allergy Reactions Criticality Noted Date Comments Amoxicillin Hives Medium 05/01/2023 Lisinopril Angioedema High 07/01/2023 Medications aspirin 81 mg chewable tablet Take 1 tablet (81 mg total) by mouth daily 30 tablet 11 023 Active ondansetron ODT (ZOFRAN-ODT) 4 mg disintegrating tablet Take 1 tablet (4 mg total) by mouth every 8 (eight) hours as needed for nausea or vomiting 10 tablet 023 Active senna-docusate (PERICOLACE) 8.6-50 mg Take 2 tablets by mouth 2 (two) times a day To prevent constipation 40 tablet 023 Active amLODIPine (NORVASC) 10 mg tablet Take 1 tablet (10 mg total) by mouth daily 30 tablet 11 024 2024 Active hydrALAZINE (APRESOLINE) 50 mg tablet Take 1 tablet (50 mg total) by mouth 3 (three) times a day 90 tablet 024 2024 Active dicyclomine (BENTYL) 20 mg tablet Take 1 tablet (20 mg total) by mouth every 6 (six) hours as needed (For abdominal pain) 120 tablet 024 2024 Active ergocalciferol (VITAMIN D) 50,000 unit capsule Take 1 capsule (50,000 Units total) by mouth once a week for 7 doses 7 capsule Active hydrocortisone (ANUSOL-HC) 2.5 % rectal cream Insert into the rectum 2 (two) times a day as needed for hemorrhoids 30 g Active acetaminophen (TYLENOL) 500 mg tablet Take 2 tablets (1,000 mg total) by mouth every 6 (six) hours as needed for pain, headaches or fever Active capsaicin (ZOSTRIX) 0.025 % cream Apply 1 Application topically 2 (two) times a day as needed for pain Active hyoscyamine (LEVSIN) 0.125 mg SL tabletIndications :Ureteral stent discomfort Take 1 tablet (0.125 mg total) by mouth every 4 (four) hours as needed (Bladder spasms/discomfo rt) 30 tablet 3 Active oxyBUTYnin (DITROPAN) 5 mg tabletIndications :Ureteral stent discomfort Take 1 tablet (5 mg total) by mouth 3 (three) times a day as needed (Bladder spasms/discomfo rt) 30 tablet 3 024 Active labetaloL (NORMODYNE,TRANDA TE) 200 mg tablet Take 2 tablets (400 mg total) by mouth 2 (two) times a day 360 tablet 3 Active tamsulosin (FLOMAX) 0.4 mg extended release capsule TAKE 1 CAPSULE BY MOUTH DAILY *TAKE WHILE STENT IS IN PLACE AND FOR THREE DAYS AFTER STENT REMOVAL Active lamoTRIgine (LaMICtal) 25 mg tablet Take 1 tablet (25 mg total) by mouth daily Active lurasidone (LATUDA) 20 mg tablet Take 1 tablet every day by oral route with meal(s). Active meloxicam (MOBIC) 7.5 mg tabletIndications :Sacroiliitis (HCC) Take 1 tablet (7.5 mg total) by mouth daily 30 tablet Active pravastatin (PRAVACHOL) 10 mg tablet 1 tablet (10 mg total) Active amitriptyline (ELAVIL) 50 mg tablet Take 1 tablet (50 mg total) by mouth nightly 30 tablet 11 2024 Active QUEtiapine (SEROquel) 50 mg tablet Take 1 tablet (50 mg total) by mouth nightly 30 tablet 1 Active methocarbamoL (ROBAXIN) 500 mg tablet Take 2 tablets (1,000 mg total) by mouth 3 (three) times a day 180 tablet Active polyethylene glycol (MIRALAX) 17 gram/dose bulk powder Take 17 g by mouth daily Active pregabalin (LYRICA) 100 mg capsule Take 1 capsule (100 mg total) by mouth 3 (three) times a day 90 capsule 2024 Active oxyCODONE (ROXICODONE) 10 mg tabletIndications :Pain Take 1 tablet (10 mg total) by mouth every 3 (three) hours as needed for pain 60 tablet Active QUEtiapine (SEROquel) 50 mg tablet Take 1 tablet (50 mg total) by mouth nightly 30 tablet 1 024 2023 Discontinued amitriptyline (ELAVIL) 25 mg tablet Take 1 tablet (25 mg total) by mouth nightly 30 tablet 1 024 2023 Discontinued(S top Taking at Discharge) pregabalin (LYRICA) 100 mg capsuleIndication s:Fibromyalgia,Po stoperative Acute Pain,neuropathic pain Take 1 capsule (100 mg total) by mouth 2 (two) times a day 60 capsule 5 024 2023 Discontinued(S top Taking at Discharge) Active Problems Problem Noted Date Diagnosed Date 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 Sacroiliitis 02/26/2024 Weight loss 10/03/2023 Assessment & Plan (10/03/2023 12:09 AM CDT): Consult nutrition Pyelonephritis 10/02/2023 Assessment & Plan (10/03/2023 2:02 PM CDT): Cont ctx F/u cultures Cont ivf Cont flomax Uro consulted, will give diet based on f/u uro recs this afternoon Hypokalemia 10/02/2023 Assessment & Plan (10/03/2023 2:01 PM CDT): Rpt kcl 60 meq IV Lab Results Component Value Date GLUCOSE 95 10/03/2023 CALCIUM 8.4 (L) 10/03/2023 SODIUM 134 (L) 10/03/2023 POTASSIUM 3.3 10/03/2023 CO2 22 10/03/2023 CHLORIDE 100 10/03/2023 BUNSER 15 10/03/2023 CREATININE 1.15 10/03/2023 ANGI (acute kidney injury) 10/02/2023 Assessment & Plan (10/03/2023 2:00 PM CDT): Scr improving Cont ivf Rpt bmp in am Labs rev Lab Results Component Value Date GLUCOSE 95 10/03/2023 CALCIUM 8.4 (L) 10/03/2023 SODIUM 134 (L) 10/03/2023 POTASSIUM 3.3 10/03/2023 CO2 22 10/03/2023 CHLORIDE 100 10/03/2023 BUNSER 15 10/03/2023 CREATININE 1.15 10/03/2023 Syncope 10/02/2023 Assessment & Plan (10/03/2023 12:08 AM CDT): Seems most likely to be hypovolemia related, however has complicated history with aortic dissection. -- Follow on tele -- Obtain ECHO Ureteral calculi 09/27/2023 Dissection of descending thoracic aorta 09/06/19 24 Back pain at L4-L5 level 08/23/2023 PFO (patent foramen ovale) 07/05/2023 Overview (07/05/2023): Identified on 05/05/23 TTE Assessment & Plan (08/23/2023 4:38 PM CDT): Filters on IV Ureteral stone 07/04/2023 Abdominal pain 07/04/2023 Other chronic pain 06/24/2023 Assessment & Plan (08/24/2023 2:34 PM CDT): Presents with acute on chronic back and abdominal pain, which has been an ongoing issue ever since his dissection diagnosis back in April 2023. Reports his pain flared to the point where he now also has epigastric abdominal pain with nausea and NBNB emesis. Prior work-up has included multiple CTA since endovascular repair that are stable, whole spine MRI (06/16/23) that was negative for fracture or discitis/OM, and no evidence of further ureteral stones or pancreatitis. -Lipase within normal limits -CTA again stable here -Suspect underlying neuropathic pain from dissection vs hypersensitivity vs cannabis hyperemesis syndrome -Holding off on repeat MRI given he states his pain profile is the same since his May one, but could consider repeating if new physical exam findings occur -Pain management consult today--- (has outpatient follow-up scheduled on 09/27/23) -Discussed how we would be limiting opioids for chronic pain while admitted -Pain control with scheduled tylenol, lidocaine patch, gabapentin 300 mg TID, flexeril 10 mg TID -PRN Ibuprofen first line and Oxycodone 10 mg q6 hr second line Assessment & Plan (06/24/2023 12:04 PM WELDING ROBOT OPERATOR): - CT without discitis or osteomyelitis on 06/13 - MRI 06/13 also without discitis or osteomyelitis - no narcotic pain medications are required from vascular surgery perspective - Consult pain management team Pseudoaneurysm following procedure ([facility]) Assessment & Plan (06/24/2023 10:40 AM WELDING ROBOT OPERATOR): - s/p vascular access - Q4 N/V checks - no current surgical intervention - no activity restrictions, OOB/ ambulate Infrarenal abdominal aortic aneurysm, without ru pture 06/13/2023 Assessment & Plan (06/24/2023 10:41 AM WELDING ROBOT OPERATOR): s/p TEVAR on 06/05/23 (graft terminates above celiac take off) 06/11 discharged home; 06/13 Re admitted for worsening back pain, HTN, and subjective fever/chills. - CT 06/13 shows no change in aneurysm, no stent migration, no increase in false lumen perfusion - non operative Polysubstance abuse (CMS/[facility]) 06/10/2023 Moderate malnutrition (CMS/HCC) 06/09/2023 Dissection of abdominal aorta (CMS/HCC) 06/03/19 24 Urinary retention 05/16/2023 Assessment & Plan (05/16/2023 10:44 AM WELDING ROBOT OPERATOR): Patient with urinary retention requiring straight cath X1 05/15, now voiding without any issues. - Continue Flomax. - Patient requests urology follow up, referral placed. Epistaxis 05/13/2023 Assessment & Plan (05/13/2023 12:42 PM WELDING ROBOT OPERATOR): Significant nose bleed in the OR requiring intra-op ENT c/s. DL performed, no other sources of bleeding visualized. ACT post protamine 149. - ENT following - ocean spray tid - no other s/s bleeding Pneumonia 05/13/2023 Assessment & Plan (05/13/2023 12:43 PM WELDING ROBOT OPERATOR): Tracheal aspirate 05/05 with Haemophilus Inf - susana(05/04 - 05/10), linezolid (05/04-05/06) HTN (hypertension) 05/13/2023 Assessment & Plan (05/28/2024 8:41 AM WELDING ROBOT OPERATOR): BP well controlled. - continue home amlodipine 10, hydral 50 q8. Transition labetalol 200 QID back to home 400 BID. - Follows with Dr. Abarca. Assessment & Plan (10/03/2023 12:09 AM CDT): Continue home labetalol, hydralazine, amlodipine Assessment & Plan (08/23/2023 4:46 PM CDT): Continue home Amlodipine 10 mg qday, Hydralazine 50 mg TID and Coreg 37.5 mg BID -BP was elevated on ED arrival and suspect secondary to pain -Resume home regimen and can up-titrate hydralazine if needed Assessment & Plan (06/24/2023 10:41 AM WELDING ROBOT OPERATOR): Difficult to control Htn. Dr. Abarca following - Continue amlodipine, lisinopril, coreg, hydralazine - SBP goal 120-140 - VS q 4 hrs and prn Assessment & Plan (06/21/2023 7:57 AM WELDING ROBOT OPERATOR): BP stable at present. Recommend discontinuation of the diltiazem and continue amlodipine (as opposed to giving two calcium channel blockers) Assessment & Plan (06/20/2023 8:33 PM WELDING ROBOT OPERATOR): BP improving. Recommend continue medications and follow up bp, except recommend discontinuation of the diltiazem as he is already on a calcium channel louie, amlodipine Assessment & Plan (06/18/2023 7:59 AM WELDING ROBOT OPERATOR): Patient with continued hypertension. Blood pressure in the right arm levels are improved now in the 130s and 140s. Recommend consideration for adjustment of medications as follows. 1. Add spironolactone 25 mg a day 2. Consider adding clonidine 0.1 mg twice a day Assessment & Plan (06/11/2023 7:50 AM WELDING ROBOT OPERATOR): Patient hypertensive. Recommend resuming hydralazine 25 mg 3 times a day. Continue the amlodipine and carvedilol. Follow-up blood pressure. The patient should have follow-up blood pressure when he leaves the hospital as well. Assessment & Plan (06/10/2023 3:48 PM WELDING ROBOT OPERATOR): Goal systolic BP 140-180 for one month post-op for spinal cord perfusion. Systolic BP currently below goal. - Dr. Abarca following - decreased carvedilol to 12.5 bid - Per Dr. Abarca: Plan to wean off hydral. Reduce hydral to 25 TID, to be dosed for systolic >140 and start amlodipine 5 on 06/09. Hydral dc'd. Coreg increased 06/10. - continue OU status Assessment & Plan (06/09/2023 10:54 AM WELDING ROBOT OPERATOR): Blood pressure well controlled at present. Medicines are being adjusted. Currently on carvedilol and hydralazine. A want to transition to amlodipine 5 mg a day to wean hydralazine, as tolerated, as 3 times a day medication can be difficult long-term Assessment & Plan (05/13/2023 12:49 PM WELDING ROBOT OPERATOR): Hx of uncontrolled HTN, non-compliant to medications. - Need to avoid hypotension in post TEVAR period. - SBP goal less than 180. - Currently on Coreg 12.5mg BID. Dissection of thoracoabdominal aorta (CMS/HCC) 1 07/03/2022 Assessment & Plan (08/23/2023 4:38 PM CDT): Follows with both vascular surgery and Dr. Felipe, now s/p repair -CTA with stable findings -Vascular surgery consulted in ED and no surgical intervention needed at this time Assessment & Plan (06/11/2023 7:50 AM WELDING ROBOT OPERATOR): Clinically stable. Renal function stable. Blood pressure improved We will recommend genetic testing as an outpatient Assessment & Plan (06/10/2023 3:48 PM WELDING ROBOT OPERATOR): Presents with abdominal pain and concern for progression of dissection on CT - 06/05/23: OR s/p TEVAR extension and dissection stent placement - BP management per HTN - pain control - Q4 NV checks, Q2 VS - lovenox DVT ppx - He will f/u with Dr. Abarca as outpatient for genetics testing. Assessment & Plan (06/09/2023 10:54 AM WELDING ROBOT OPERATOR): Clinically stable. Renal function stable. Blood pressure improved We will recommend genetic testing as an outpatient Assessment & Plan (05/16/2023 10:45 AM WELDING ROBOT OPERATOR): Patient presented on 05/01 with acute Chest pain, shortness of breath and abdominal pain. CT showed extension of the type B thoracic aortic aneurysm, terminates just above the bifurcation, with origins the left renal artery and celiac artery arising off the false lumen. - Admitted to ICU for impulse control. - OR 05/02 for TEVAR - Upon extubation on 05/05 pt LE exam w/ LLE ankle flexion only, RLE w/ antigravity knee flexion, c/f spinal cord ischemia. - NSGY consulted and placed lumbar drain. - Total spine MRI with dorsal hematoma and assoc displacement of cauda equina nerve roots, no evidence of ischemia - Lumbar drain removed 05/10 - LE weakness now recovering. PT/OT have cleared for home. - 05/14: SICU to floor, good pulses b/l, warm, well perfused - Goal SBP less than 180. - Neurology following. - PT/OT. - Repeat CTA today, if stable, plan to discharge to home this afternoon. 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 No concern for mesenteric ischemia. - c/w impulse control - regular diet - transitioned to oral anti-hypertensive - pain management following. Now off lido drip and dilaudid [employer] PUBLISHING SPECIALIST. Dilaudid discontinued 05/28. Pain signed off. Assessment & Plan (10/03/2023 2:00 PM CDT): Follows with Dr Abarca Cont antihypertensives Assessment & Plan (06/18/2023 8:00 AM WELDING ROBOT OPERATOR): Aortic imaging stable on recent CT scan. Continue blood pressure control. Assessment & Plan (05/02/2023 2:02 PM WELDING ROBOT OPERATOR): 32y/o male with uncontrolled HTN who presented to an OSH ER with acute onset shortness of breath, chest pain and back pain. 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 He was transferred to [facility] for further evaluation and treatment. Here, he was seen by vascular surgery and admitted to the CTICU for impulse control. He had recurrent worsening pain and a repeat CTA this morning. This showed ? interval cranial propagation of a type B thoracic aortic dissection which now extends from approximately zone 3 to the left common iliac artery; no change in aortic caliber; this dissection may originate in the midthoracic aorta, or fenestration is present at the level of T4; increasing fat stranding about the aortic arch and great vessels, likely reactive in the setting of dissection propagation, no extraluminal contrast present to suggest aortic rupture? , for which CTS was consulted. CTA reviewed with Daniel Balderas, and Mesha. All feel these findings not to be front office representative of a type a dissection, therefore no urgent cardiac surgery is recommended. However, he is continuing to have significant pain despite BP control and pain medications, in addition to the propagation of the dissection. Recommend reaching back out to vascular surgery to consider a vascular intervention. I have called the on-call vascular fellow and left a voicemail. Echo ordered stat. This showed LVEF of 41%, dilated atria, dilated IVC, normal aortic root size, no pericardial effusion. As above, recommend following up with vascular surgery. Please get stat chest abdomen pelvis CTA if any clinical or neurological changes. Continue impulse control. Consider cardiology consult in the setting of difficult to control, longstanding hypertension and findings of HFrEF with LVEF of 41%. Encounters Date Type Department Care Team Description 05/25/[address] [phone] Essie Singh RN 05/23/2024 7:45 PM WELDING ROBOT OPERATOR - 05/29/2024 10:36 AM WELDING ROBOT OPERATOR Hospital Encounter [address] [phone] Gonzalez Lamar DO Ohman, John Westley, MD Abdominal pain (Primary Dx) Discharge Disposition: Discharge to home or self care 05/21/2024 4:17 PM WELDING ROBOT OPERATOR - 05/21/2024 8:27 PM WELDING ROBOT OPERATOR Emergency [facility] Emergency Department [address] [place] [phone] Marcus Amaya MD Nausea and vomiting, unspecified vomiting type (Primary Dx) Discharge Disposition: Discharge to home or self care 05/19/2024 9:40 PM WELDING ROBOT OPERATOR - 05/20/2024 1:34 AM WELDING ROBOT OPERATOR Emergency [facility] Emergency Department [address] [place] [phone] Casandra Lock MD Renz, Nicholas Robert, MD Abdominal pain (Primary Dx); Chronic bilateral low back pain without sciatica; Abdominal aortic aneurysm dissection (HCC) Discharge Disposition: Discharge to home or self care 05/16/2024 2:39 PM WELDING ROBOT OPERATOR - 05/16/2024 11:59 PM WELDING ROBOT OPERATOR Hospital Encounter [facility] [address] [place] [address] Adrianne Adams MD PhD Sacroiliitis (HCC) (Primary Dx) Discharge Disposition: Discharge to home or self care 04/24/2024 Orders Only [facility] [address] 5th [place] [address] [place] [phone] Miguel Dominguez MD ANGI (acute kidney injury) (HCC) (Primary Dx); Primary hypertension; Anemia, unspecified type; Screening for hematuria or proteinuria 03/07/2024 3:00 PM CDT Office Visit [facility] [address] [place] [address] Medical Office Building [address] [place] [id number] Leo Manzano MD Dissection of abdominal aorta (CMS/HCC) (HCC); Aftercare following surgery of the circulatory system 03/07/2024 11:53 AM CDT - 03/07/2024 11:59 PM CDT Hospital Encounter [facility] [address] [place] [facility] [place] [id number] Dissection of thoracoabdominal aorta (CMS/HCC) (HCC) Discharge Disposition: Discharge to home or self care 02/28/2024 9:44 AM CDT - 02/28/2024 11:59 PM CDT Hospital Encounter [facility] [address] [place] [address] Hilaria Blankenship MD PhD Adrianne Adams MD PhD Sacroiliitis (HCC) (Primary Dx) Discharge Disposition: Discharge to home or self care from Last 3 Months Surgical History Surgery Date Site/Laterality Comments ABDOMINAL AORTIC ANEURYSM REPAIR Medical History Medical History Date Comments Kidney stones Hypertension Abdominal pain Depression Anxiety Memory loss Aortic dissection (HCC) Family History Medical History Relation Name Comments Anxiety disorder Brother Depression Brother Depression Father Anxiety disorder Mother Depression Mother Anxiety disorder Sister Depression Sister Relation Name Status Comments Brother Father Mother Sister Social History Tobacco Use Types Packs/Day Years Used Date Smoking Tobacco: Never Smokeless Tobacco: Never Tobacco Cessation:Counseling Given: Not Answered Alcohol Use Standard Drinks/Week Comments Not Currently 0 (1 standard drink = 0.6 oz pur e alcohol) [facility] Utilities Answer Date Recorded In the past 12 months has th e Occasion, gas, oil, or water [employer] threatened to shut off services in your home? No 05/24/2024 Social Connection and Isolat ion Panel [NHANES] Answer Date Recorded In a typical week, how many times do you talk on the phone with family, friends, or neighbors? More than three times a week 05/24/2024 How often do you get togethe r with friends or relatives? More than three times a week 05/24/2024 How often do you attend [facility] or orthodoxy services? Never 05/24/2024 Do you belong to any clubs o r organizations such as confucianist groups, unions, fraternal or athletic groups, or school groups? No 05/24/2024 How often do you attend meet ings of the clubs or organizations you belong to? Never 05/24/2024 Are you , , di vorced, , never , or living with a partner? Living with partner 05/24/2024 AUDIT-C Answer Date Recorded Q1: How often do you have a drink containing alcohol? Never 01/20/2024 Q2: How many drinks containi ng alcohol do you have on a typical day when you are drinking? Patient does not drink Q3: How often do you have si x or more drinks on one occasion? Never 01/20/2024 Overall Financial Resource Strain (CARDIA) Answe r Date Recorded How hard is it for you to pa y for the very basics like food, housing, medical care, and heating? Somewhat hard 05/24/2024 PHQ-2 Answer Date Recorded PHQ-2 Total Score (If total score is 3 or more points, staff should administer the PHQ-9) 0 06/24/2023 Hunger Vital Sign Answer Date Recorded Within the past 12 months, y ou worried that your food would run out before you got the money to buy more. Never true 05/24/20 Within the past 12 months, t he food you bought just didn't last and you didn't have money to get more. Never true 05/24/2024 PRAPARE - Transportation Answer Date Re corded In the past 12 months, has l ack of transportation kept you from medical appointments or from getting medications? No 04/30 In the past 12 months, has l ack of transportation kept you from meetings, work, or from getting things needed for daily living? No 05/24/2024 Housing Stability Vital Sign Answer Caden e Recorded In the last 12 months, was t here a time when you were not able to pay the mortgage or rent on time? Patient declined 10/02/19 In the last 12 months, how many places have you lived? 0 10/02/2023 In the last 12 months, was t here a time when you did not have a steady place to sleep or slept in a usp (including now)? Patient declined 10/02/2023 Housing Stability Vital Sign Answer Caden e Recorded In the last 12 months, was t here a time when you were not able to pay the mortgage or rent on time? No 05/24/2024 In the past 12 months, how m any times have you moved where you were living? 0 05/24/2024 At any time in the past 12 m [facility], were you homeless or living in a usp (including now)? No 05/24/2024 Personal Safety Answer Date Recorded Have you ever been in or are you currently in a harmful physical or emotional relationship or is someone making you feel afraid or unsafe? Denies 05/23/2024 Sex and Gender Information Value Date Recorded Sex Assigned at Not on file Legal Sex Male 3:42 AM WELDING ROBOT OPERATOR Gender Identity Not on file Sexual Orientation Straight 06/12/2023 11 :43 PM WELDING ROBOT OPERATOR Obstetrics History Last Filed Vital Signs Vital Sign Reading Time Taken Comments Blood Pressure 129/70 05/29/2024 10:10 AM WELDING ROBOT OPERATOR Pulse 67 05/29/2024 7:57 AM WELDING ROBOT OPERATOR Temperature 36.6 ??C (97.8 ??F) 05/29/2024 7:57 AM CS T Respiratory Rate 18 05/29/2024 7:57 AM WELDING ROBOT OPERATOR Oxygen Saturation 96% 05/29/2024 7:57 AM WELDING ROBOT OPERATOR Inhaled Oxygen Concentration - - Weight 99.8 kg (220 lb) 05/23/2024 9:15 PM WELDING ROBOT OPERATOR Height 175.3 cm (5' 9 ) 05/23/2024 9:15 PM WELDING ROBOT OPERATOR Body Mass Index 32.49 05/23/2024 9:15 PM WELDING ROBOT OPERATOR Plan of Treatment Health Maintenance Due Date Last Done Comments DTaP/Tdap/Td Vaccine (5 - Tdap) 2003 02/23/1994, 1992, 1992, Additional history exists Varicella Vaccines (1 of 2 - 13+ 2-dose series) 2005 Regular Well Visit/Exam 18-64 2010 Influenza Vaccine (#1) 2024 Depression Screening 06/13/2024 06/13/2023, 06/03/19 24 Hepatitis C Screening Completed 09/06/2023 HPV Vaccines Aged Out No longer eligi ble based on patient's age to complete this topic Pneumococcal vaccine <65 Aged Out No longer eligible based on patient's age to complete this topic Goals Goal Patient Goal Type Associated Problems Recent Progress Patient-Stated? Author CCM Chronic Pain Care Plan Chronic Care Management No change(05/16 2:51 PM WELDING ROBOT OPERATOR) No Rita Landa, RN Note: Problem: Chronic Pain Goals: 1. Minimize further functional decline 2. Maximize quality of life 3. Control pain Strategies: - Activity/exercise program recommendation - Conservative stepwise pain medicine strategy with multi-disciplinary approach - Recommend healthy lifestyle strategies and compensatory methods as needed Medical Devices Implanted Type Area Veneer Stock Grader Device Identifier Shelf Expiration Date Model / Serial / Lot [employer] Stent Graft Aortic Covered Tag [id number] Eptfe Nitinol [id number] - [id number] - [id number] Implanted:Qty : 1 on 05/02/2023 by Leo Manzano MD at [facility] Graft N/A: Aorta [employer] [id number] 12/07/2025 [id number] / [id number] / [employer] Stent Graft Thoracic Side Branch Tag [id number] Eptfe Nitinol [id number] - [id number] - [id number] Implanted:Qty : 1 on 05/02/2023 by Leo Manzano MD at [facility] Stent Left: Subclavian [employer] [id number] 06/27/2025 [id number] / [id number] / [employer] Graft Stent [place] Tag L20cm Od37mm Thoracic Active Control [id number] - [id number] - [id number] Implanted:Qty : 1 on 06/05/2023 by Nikhil Samuel MD at [facility] Stent N/A: Descending Thoracic Aorta [employer] [id number] 04/12/2024 [id number] / [id number] / [employer] Zenith 36mm 20-30mm 16mm 180mm 9 Dissection Introducer Sheath [id number] - [id number] Implanted:Qty : 1 on 06/05/2023 by Nikhil Samuel MD at [facility] Stent N/A: Descending Thoracic Aorta [employer] [id number] 12/20/2025 [id number] / / [id number] [employer] Device Clsr Perclose Prostyle Sut-Mediatd Closure-Repai r Sys 80091-00 - [id number] Implanted:Qty : 3 on 05/02/2023 by Leo Manzano MD at [facility] Vascular Closure Device Left: Common Femoral Artery [employer] [id number] 09/26/2024 16730-12 / / [id number] Description:Same lot number [employer] Device Clsr Perclose Prostyle Sut-Mediatd Closure-Repai r Sys 14450-96 - [id number] Implanted:Qty : 1 on 06/05/2023 by Nikhil Samuel MD at [facility] Left: Groin [employer] [id number] 12/27/2024 [id number] / / [id number] [employer] Device Clsr Perclose Prostyle Sut-Mediatd Closure-Repai r Sys 45480-65 - [id number] Implanted:Qty : 1 on 06/05/2023 by Nikhil Samuel MD at [facility] Left: Groin [employer] [id number] 12/27/2024 [id number] / / [id number] [employer] Ron Contour 6fr 26cm Large Inner Lumen Low Profile Bladder Ag Taper Latex Free 180-223 - [id number] Implanted:Qty : 1 on 09/27/2023 by Marcus Glass MD at [facility] Right: Ureter [employer] 05/16/2026 [id number] / / [id number] [employer] Ron Contour 6fr 26cm Large Inner Lumen Low Profile Bladder Ag Taper Latex Free 180-223 - [id number] Implanted:Qty : 1 on 10/04/2023 by Otoniel Landa MD at [facility] Right: Ureter [employer] Ron 05/16/2026 [id number] 230 / / [id number] Explanted Type Area Veneer Stock Grader Device Identifier Shelf Expiration Date Model / Serial / Lot [employer] Inlay Naylor 6fr 28cm Pusher Fluoro Marker Atraumatic Insertion Latex Free [id number] - [id number] Implanted:Qty: 1 on 07/04/2023 by Marcus Gamboa MD at [facility] Explanted:Qty: 1 on 07/14/2023 by Stacia Su MD Stent Left: Ureter [employer] [id number] 04/14/2027 [id number] / / [id number] Procedures Procedure Name Priority Date/Time Associated Diagnosis Comments EGFR Timed 05/28/2024 3:36 AM WELDING ROBOT OPERATOR BASIC METABOLIC PANEL Timed 05/28/2024 3:36 AM WELDING ROBOT OPERATOR CBC WITHOUT DIFFERENTIAL Timed 05/28/2024 3:36 AM WELDING ROBOT OPERATOR LIDOCAINE LEVEL Timed 05/28/2024 3:36 AM WELDING ROBOT OPERATOR LIDOCAINE LEVEL Timed 05/27/2024 3:29 AM WELDING ROBOT OPERATOR TYPE AND SCREEN Timed 05/27/2024 3:29 AM WELDING ROBOT OPERATOR EGFR Routine 05/26/2024 4:38 AM WELDING ROBOT OPERATOR LIDOCAINE LEVEL Timed 05/26/2024 4:38 AM WELDING ROBOT OPERATOR BASIC METABOLIC PANEL Routine 05/26/2024 4:38 AM WELDING ROBOT OPERATOR CBC WITHOUT DIFFERENTIAL Routine 05/26/2024 4:38 AM WELDING ROBOT OPERATOR EGFR Routine 05/25/2024 4:20 PM WELDING ROBOT OPERATOR BASIC METABOLIC PANEL Routine 05/25/2024 4:20 PM WELDING ROBOT OPERATOR CBC WITHOUT DIFFERENTIAL Routine 05/25/2024 4:20 PM WELDING ROBOT OPERATOR LIDOCAINE LEVEL Routine 05/25/2024 4:20 PM WELDING ROBOT OPERATOR CRITICAL CARE Routine 05/25/2024 8:12 AM WELDING ROBOT OPERATOR Abdominal pain POCT GLUCOSE DEVICE Routine 05/25/2024 4 :16 AM WELDING ROBOT OPERATOR POCT GLUCOSE DEVICE Routine 05/24/2024 11:36 PM WELDING ROBOT OPERATOR POCT GLUCOSE DEVICE Routine 05/24/2024 8 :50 PM WELDING ROBOT OPERATOR CRITICAL CARE Routine 05/24/2024 8:47 PM WELDING ROBOT OPERATOR Abdominal pain EGFR Routine 05/24/2024 5:43 PM WELDING ROBOT OPERATOR DIFFERENTIAL AUTO Routine 05/24/2024 5:4 3 PM WELDING ROBOT OPERATOR LACTATE, WHOLE BLOOD STAT 05/24/2024 5:43 PM WELDING ROBOT OPERATOR AMYLASE Routine 05/24/2024 5:43 PM WELDING ROBOT OPERATOR PHOSPHORUS Routine 05/24/2024 5:43 PM WELDING ROBOT OPERATOR MAGNESIUM Routine 05/24/2024 5:43 PM WELDING ROBOT OPERATOR COMPREHENSIVE METABOLIC PANEL Routine 05/24/2024 5:43 PM WELDING ROBOT OPERATOR CBC WITH AUTO DIFFERENTIAL Routine 05/24/2024 5:43 PM WELDING ROBOT OPERATOR POCT GLUCOSE DEVICE Routine 05/24/2024 3 :52 PM WELDING ROBOT OPERATOR POCT GLUCOSE DEVICE Routine 05/24/2024 11:06 AM WELDING ROBOT OPERATOR POCT GLUCOSE DEVICE Routine 05/24/2024 7 :46 AM WELDING ROBOT OPERATOR CRITICAL CARE Routine 05/24/2024 6:15 AM WELDING ROBOT OPERATOR Abdominal pain POCT GLUCOSE DEVICE Routine 05/24/2024 3 :23 AM WELDING ROBOT OPERATOR POCT GLUCOSE DEVICE Routine 05/23/2024 11:04 PM WELDING ROBOT OPERATOR EGFR STAT 05/23/2024 8:33 PM WELDING ROBOT OPERATOR DIFFERENTIAL AUTO STAT 05/23/2024 8:3 3 PM WELDING ROBOT OPERATOR PROTIME-INR STAT 05/23/2024 8:33 PM WELDING ROBOT OPERATOR APTT STAT 05/23/2024 8:33 PM WELDING ROBOT OPERATOR TYPE AND SCREEN Timed 05/23/2024 8:33 PM WELDING ROBOT OPERATOR CBC WITH AUTO DIFFERENTIAL STAT 05/23/2024 8:33 PM WELDING ROBOT OPERATOR CREATINE KINASE (CK), TOTAL STAT 05/23/2024 8:33 PM WELDING ROBOT OPERATOR LACTATE STAT 05/23/2024 8:33 PM WELDING ROBOT OPERATOR CALCIUM, IONIZED STAT 05/23/2024 8:33 PM WELDING ROBOT OPERATOR PHOSPHORUS STAT 05/23/2024 8:33 PM WELDING ROBOT OPERATOR MAGNESIUM STAT 05/23/2024 8:33 PM WELDING ROBOT OPERATOR COMPREHENSIVE METABOLIC PANEL STAT 05/23/2024 8:[address] BODY OUTSIDE REFERENCE Routine 05/23/2024 8:[address] BODY OUTSIDE CONSULT Routine 05/23/2024 8:18 PM WELDING ROBOT OPERATOR POCT GLUCOSE DEVICE Routine 05/23/2024 7 :47 PM WELDING ROBOT OPERATOR POCT RAPID HIV ANTIBODY COMMUNITY SCREENING-PAPA ELIGIBLE Routine 05/21/2024 7:35 PM WELDING ROBOT OPERATOR OXYCODONE CONFIRMATION, URINE Routine 05/21/2024 5:34 PM WELDING ROBOT OPERATOR FENTANYL CONFIRMATION, MS URINE Routine 05/21/2024 5:34 PM WELDING ROBOT OPERATOR AMPHETAMINE, URINE, CONFIRMATION Routine 05/21/2024 5:34 PM WELDING ROBOT OPERATOR URINALYSIS, MICROSCOPIC ONLY STAT 05/21/2024 5:34 PM WELDING ROBOT OPERATOR DRUGS OF ABUSE SCREEN, URINE WITH REFLEX CONFIRMATION Routine 05/21/2024 5:34 PM WELDING ROBOT OPERATOR URINALYSIS AND REFLEX TO MICROSCOPIC STAT 05/21/2024 5:34 PM WELDING ROBOT OPERATOR SEPSIS LACTATE WITH REFLEX STAT 05/21/2024 4:33 PM WELDING ROBOT OPERATOR EGFR STAT 05/21/2024 3:41 PM WELDING ROBOT OPERATOR DIFFERENTIAL AUTO STAT 05/21/2024 3:4 1 PM WELDING ROBOT OPERATOR LIPASE STAT 05/21/2024 3:41 PM WELDING ROBOT OPERATOR COMPREHENSIVE METABOLIC PANEL STAT 05/21/2024 3:41 PM WELDING ROBOT OPERATOR CBC WITH AUTO DIFFERENTIAL STAT 05/21/2024 3:41 PM WELDING ROBOT OPERATOR ECG 12-LEAD STAT 05/21/2024 2:24 PM WELDING ROBOT OPERATOR ECG 12-LEAD STAT 05/19/2024 11:55 PM WELDING ROBOT OPERATOR XR CHEST PA LATERAL 2 VIEWS ED 05/19/2024 10:34 PM WELDING ROBOT OPERATOR CTA CHEST ABDOMEN PELVIS ED 05/19/2024 10:20 PM WELDING ROBOT OPERATOR EGFR STAT 05/19/2024 9:12 PM WELDING ROBOT OPERATOR DIFFERENTIAL AUTO Timed 05/19/2024 9:1 2 PM WELDING ROBOT OPERATOR TROPONIN I HIGH-SENSITIVITY SERIES (BASELINE, 2HR, 4HR, 6HR) STAT 05/19/2024 9:12 PM WELDING ROBOT OPERATOR TYPE AND SCREEN STAT 05/19/2024 9:12 PM WELDING ROBOT OPERATOR APTT STAT 05/19/2024 9:12 PM WELDING ROBOT OPERATOR PROTIME-INR STAT 05/19/2024 9:12 PM WELDING ROBOT OPERATOR COMPREHENSIVE METABOLIC PANEL STAT 05/19/2024 9:12 PM WELDING ROBOT OPERATOR CBC WITH AUTO DIFFERENTIAL Timed 05/19/2024 9:12 PM WELDING ROBOT OPERATOR POC ISTAT Routine 03/07/2024 12:09 PM CDT CTA CHEST ABDOMEN PELVIS Schedule Routine, Read Routine (OP Routine) 03/07/2024 12:05 PM CDT Dissection of thoracoabdominal aorta (CMS/HCC) (HCC) PAIN MGMT IMAGING SI JOINT BILATERAL ARTHROGRPHY Schedule Routine, Read Routine (OP Routine) 02/28/2024 11:27 AM CDT Sacroiliitis (HCC) HEPATITIS C ANTIBODY Routine 09/06/2023 11:15 AM CDT from Last 3 Months or Most Recently Relevant to Health Maintenance Results * eGFR (05/28/2024 3:36 AM WELDING ROBOT OPERATOR) eGFR >90 >=60 mL/min/1. 73 m2 Comment: Interpretive Data Reference Interval Normal ?>/= 90 mL/min/1.73m2 Mildly decreased* ? 60 - 89 mL/min/1.73m2 Mildly to moderately decreased ?45 - 59 mL/min/1.73m2 Moderately to severely decreased ??30 - 44 mL/min/1.73m2 Severely decreased ?15 - 29 mL/min/1.73m2 Kidney Failure ?< 15 ??mL/min/1.73m2 *Relative to young adult level Estimated glomerular filtration rate is determined by the 2020 CKD-EPI equation recommended by the National Kidney Foundation (A Unifying Approach to GFR Estimation: Recommendations of the NKF-ASK Task Force on Reassessing the Inclusion of Race in Diagnosing Kidney Disease, JASN 2020). The CKD-EPI equation should not be used for patients with unstable renal function and has not been validated in children and those over 70. Current interpretive data was last reviewed 2021. Blood 05/28/2024 3:36 AM WELDING ROBOT OPERATOR 05/28/2024 4:30 AM WELDING ROBOT OPERATOR us Leo aMnzano MD LAB BLOOD ORDERABLES Final Result [facility] Department [place] [address] * (ABNORMAL) Lidocaine level (05/28/2024 3:36 AM WELDING ROBOT OPERATOR) Lidocaine (Xylocaine) <1.0(L) 1.5 - 5.0 mcg/mL Blood 05/28/2024 3:36 AM WELDING ROBOT OPERATOR 05/28/2024 4:30 AM WELDING ROBOT OPERATOR Gonzalez Lamar DO LAB BLOOD ORDERABLES Fin al Result Performing Organization Address [facility] Co de Phone Number [facility] Department [place] [address] * (ABNORMAL) CBC without differential (05/28/2024 3:36 AM WELDING ROBOT OPERATOR) Pathologist [facility] WBC 5.0 3.8 - 9.9 K/cumm Hgb 11.7(L) 13.0 - 17.5 g/dL [facility] Hct 35.3(L) 38.9 - 50.3 % [facility] Plt 240 150 - 400 K/cumm [facility] MPV 9.5 9.1 - 12.3 fL [facility] RBC 3.82(L) 4.30 - 5.80 M/cumm [facility] MCV 92.4 81.3 - 96.4 fL [facility] MCH 30.6 27.1 - 33.3 pg [facility] MCHC 33.1 32.3 - 35.7 g/dL [facility] RDW CV 13.3 11.1 - 14.9 % [facility] RDW SD 45.1 35.7 - 48.1 fL [facility] NRBC abs 0.00 0.00 - 0.01 K/cumm [facility] Blood 05/28/2024 3:36 AM WELDING ROBOT OPERATOR 05/28/2024 4:32 AM WELDING ROBOT OPERATOR us Leo Manzano MD LAB BLOOD ORDERABLES Final Result Performing Organization Address [facility] Co de Phone Number [facility] Department [place] [address] * Basic metabolic panel (05/28/2024 3:36 AM WELDING ROBOT OPERATOR) Pathologist [facility] Sodium 140 135 - 145 mmol/L Potassium, pl 4.0 3.3 - 4.9 mmol/L [facility] Chloride 103 97 - 110 mmol/L [facility] CO2 25 22 - 32 mmol/L [facility] Anion gap 12 2 - 15 mmol/L [facility] BUN 18 6 - 25 mg/dL [facility] Creatinine 1.10 0.80 - 1.30 mg/dL [facility] Glucose 85 70 - 199 mg/dL [facility] Comment: Interpretive Data Fasting glucose >/= 126 mg/dl is diagnostic for diabetes. ?? Fasting is defined as no caloric intake for at least 8 hours. Fasting glucose between 100 mg/dl to 125 mg/dl is diagnostic of prediabetes. In a patient with classic symptoms of hyperglycemia or hyperglycemic crisis, a random glucose >/= 200 mg/dl is diagnostic for diabetes. In the absence of unequivocal hyperglycemia, results should be confirmed by repeat testing. The classification and Diagnosis of Diabetes Diabetes Care 2021; 46: S19-S40. Current interpretive data was last revised 2022. Calcium 9.1 8.5 - 10.3 mg/dL [facility] Blood 05/28/2024 3:36 AM WELDING ROBOT OPERATOR 05/28/2024 4:30 AM WELDING ROBOT OPERATOR us Leo Manzano MD LAB BLOOD ORDERABLES Final Result Performing Organization Address [facility] Co de Phone Number [facility] Department [place] [employer] [place] [address] * Lidocaine level (05/27/2024 3:29 AM WELDING ROBOT OPERATOR) Pathologist [facility] Lidocaine (Xylocaine) 1.5 1.5 - 5.0 mcg/mL Blood 05/27/2024 3:29 AM WELDING ROBOT OPERATOR 05/27/2024 4:21 AM WELDING ROBOT OPERATOR us Gonzalez Lamar DO LAB BLOOD ORDERABLES Fin al Result Performing Organization Address [facility] Co de Phone Number [facility] Department [place] [address] * Type and screen (05/27/2024 3:29 AM WELDING ROBOT OPERATOR) Ellen, indirect Negative ABO Rh A Positive [facility] Blood 05/27/2024 3:29 AM WELDING ROBOT OPERATOR 05/27/2024 4:33 AM WELDING ROBOT OPERATOR Narrative [facility] - 05/27/2024 5:33 AM WELDING ROBOT OPERATOR Has the patient had Daratumumab or Isatuximab in the past 6 months?->Unknown us Moriah Amin CREDIT RISK REVIEW OFFICER LAB BLOOD BANK TEST ORDERABLE S Final Result [facility] Department [place] [address] * eGFR (05/26/2024 4:38 AM WELDING ROBOT OPERATOR) eGFR 86 >=60 mL/min/1. 73 m2 Comment: Interpretive Data Reference Interval Normal ?>/= 90 mL/min/1.73m2 Mildly decreased* ? 60 - 89 mL/min/1.73m2 Mildly to moderately decreased ?45 - 59 mL/min/1.73m2 Moderately to severely decreased ??30 - 44 mL/min/1.73m2 Severely decreased ?15 - 29 mL/min/1.73m2 Kidney Failure ?< 15 ??mL/min/1.73m2 *Relative to young adult level Estimated glomerular filtration rate is determined by the 2020 CKD-EPI equation recommended by the National Kidney Foundation (A Unifying Approach to GFR Estimation: Recommendations of the NKF-ASK Task Force on Reassessing the Inclusion of Race in Diagnosing Kidney Disease, JASN 2020). The CKD-EPI equation should not be used for patients with unstable renal function and has not been validated in children and those over 70. Current interpretive data was last reviewed 2021. Blood 05/26/2024 4:38 AM WELDING ROBOT OPERATOR 05/26/2024 5:46 AM WELDING ROBOT OPERATOR Moriah Amin CREDIT RISK REVIEW OFFICER LAB BLOOD ORDERABLES Final Re sult Performing Organization Address City/[facility]/ZIP Co de Phone Number [facility] [place] [address] * Lidocaine level (05/26/2024 4:38 AM WELDING ROBOT OPERATOR) Pathologist [facility] Lidocaine (Xylocaine) 1.8 1.5 - 5.0 mcg/mL Blood 05/26/2024 4:38 AM WELDING ROBOT OPERATOR 05/26/2024 5:46 AM WELDING ROBOT OPERATOR Gonzalez Lamar DO LAB BLOOD ORDERABLES Fin al Result Performing Organization Address [facility] Co de Phone Number [facility] Department [place] [address] * (ABNORMAL) CBC without differential (05/26/2024 4:38 AM WELDING ROBOT OPERATOR) [facility] WBC 5.5 3.8 - 9.9 K/cumm Hgb 11.5(L) 13.0 - 17.5 g/dL [facility] Hct 34.0(L) 38.9 - 50.3 % [facility] Plt 222 150 - 400 K/cumm [facility] MPV 9.7 9.1 - 12.3 fL [facility] RBC 3.67(L) 4.30 - 5.80 M/cumm [facility] MCV 92.6 81.3 - 96.4 fL [facility] MCH 31.3 27.1 - 33.3 pg [facility] MCHC 33.8 32.3 - 35.7 g/dL [facility] RDW CV 13.3 11.1 - 14.9 % [facility] RDW SD 45.5 35.7 - 48.1 fL [facility] NRBC abs 0.00 0.00 - 0.01 K/cumm [facility] Blood 05/26/2024 4:38 AM WELDING ROBOT OPERATOR 05/26/2024 5:46 AM WELDING ROBOT OPERATOR Moriah Amin CREDIT RISK REVIEW OFFICER LAB BLOOD ORDERABLES Final Re sult Performing Organization Address [facility] Co de Phone Number [facility] Department [place] [address] * Basic metabolic panel (05/26/2024 4:38 AM WELDING ROBOT OPERATOR) [facility] Sodium 141 135 - 145 mmol/L Potassium, pl 3.9 3.3 - 4.9 mmol/L [facility] Chloride 107 97 - 110 mmol/L [facility] CO2 26 22 - 32 mmol/L [facility] Anion gap 8 2 - 15 mmol/L [facility] BUN 15 6 - 25 mg/dL [facility] Creatinine 1.16 0.80 - 1.30 mg/dL [facility] Glucose 78 70 - 199 mg/dL [facility] Comment: Interpretive Data Fasting glucose >/= 126 mg/dl is diagnostic for diabetes. ?? Fasting is defined as no caloric intake for at least 8 hours. Fasting glucose between 100 mg/dl to 125 mg/dl is diagnostic of prediabetes. In a patient with classic symptoms of hyperglycemia or hyperglycemic crisis, a random glucose >/= 200 mg/dl is diagnostic for diabetes. In the absence of unequivocal hyperglycemia, results should be confirmed by repeat testing. The classification and Diagnosis of Diabetes Diabetes Care 2021; 46: S19-S40. Current interpretive data was last revised 2022. Calcium 8.6 8.5 - 10.3 mg/dL [facility] Blood 05/26/2024 4:38 AM WELDING ROBOT OPERATOR 05/26/2024 5:46 AM WELDING ROBOT OPERATOR Moriah Amin NP LAB BLOOD ORDERABLES Final Re sult Performing Organization Address [facility] Co de Phone Number [facility] Department [place] [address] * eGFR (05/25/2024 4:20 PM WELDING ROBOT OPERATOR) eGFR >90 >=60 mL/min/1. 73 m2 Comment: Interpretive Data Reference Interval Normal ?>/= 90 mL/min/1.73m2 Mildly decreased* ? 60 - 89 mL/min/1.73m2 Mildly to moderately decreased ?45 - 59 mL/min/1.73m2 Moderately to severely decreased ??30 - 44 mL/min/1.73m2 Severely decreased ?15 - 29 mL/min/1.73m2 Kidney Failure ?< 15 ??mL/min/1.73m2 *Relative to young adult level Estimated glomerular filtration rate is determined by the 2020 CKD-EPI equation recommended by the National Kidney Foundation (A Unifying Approach to GFR Estimation: Recommendations of the NKF-ASK Task Force on Reassessing the Inclusion of Race in Diagnosing Kidney Disease, JASN 2020). The CKD-EPI equation should not be used for patients with unstable renal function and has not been validated in children and those over 70. Current interpretive data was last reviewed 2021. Blood 05/25/2024 4:20 PM WELDING ROBOT OPERATOR 05/25/2024 4:33 PM WELDING ROBOT OPERATOR us Moriah Amin CREDIT RISK REVIEW OFFICER LAB BLOOD ORDERABLES Final Re sult [facility] Department of Laboratories [place], [place] [id number] * Lidocaine level (05/25/2024 4:20 PM WELDING ROBOT OPERATOR) Lidocaine (Xylocaine) 2.1 1.5 - 5.0 mcg/mL Blood 05/25/2024 4:20 PM WELDING ROBOT OPERATOR 05/25/2024 4:33 PM WELDING ROBOT OPERATOR Narrative [facility] - 05/25/2024 5:02 PM WELDING ROBOT OPERATOR Draw 24 hours after infusion started. Moriah Amin CREDIT RISK REVIEW OFFICER LAB BLOOD ORDERABLES Final Re sult Performing Organization Address [facility] Co de Phone Number [facility] Department [place] [address] * (ABNORMAL) CBC without differential (05/25/2024 4:20 PM WELDING ROBOT OPERATOR) Pathologist [facility] WBC 6.1 3.8 - 9.9 K/cumm Hgb 12.1(L) 13.0 - 17.5 g/dL [facility] Hct 36.3(L) 38.9 - 50.3 % [facility] Plt 246 150 - 400 K/cumm [facility] MPV 9.6 9.1 - 12.3 fL [facility] RBC 4.03(L) 4.30 - 5.80 M/cumm [facility] MCV 90.1 81.3 - 96.4 fL [facility] MCH 30.0 27.1 - 33.3 pg [facility] MCHC 33.3 32.3 - 35.7 g/dL [facility] RDW CV 13.3 11.1 - 14.9 % [facility] RDW SD 44.0 35.7 - 48.1 fL [facility] NRBC abs 0.00 0.00 - 0.01 K/cumm [facility] Blood 05/25/2024 4:20 PM WELDING ROBOT OPERATOR 05/25/2024 4:33 PM WELDING ROBOT OPERATOR Moriah Amin CREDIT RISK REVIEW OFFICER LAB BLOOD ORDERABLES Final Re sult Performing Organization Address City/[facility]/ZIP Co de Phone Number [facility] Department [place] [address] * Basic metabolic panel (05/25/2024 4:20 PM WELDING ROBOT OPERATOR) Pathologist [facility] Sodium 140 135 - 145 mmol/L Potassium, pl 3.9 3.3 - 4.9 mmol/L [facility] Chloride 106 97 - 110 mmol/L [facility] CO2 25 22 - 32 mmol/L [facility] Anion gap 9 2 - 15 mmol/L [facility] BUN 10 6 - 25 mg/dL [facility] Creatinine 0.92 0.80 - 1.30 mg/dL [facility] Glucose 98 70 - 199 mg/dL [facility] Comment: Interpretive Data Fasting glucose >/= 126 mg/dl is diagnostic for diabetes. ?? Fasting is defined as no caloric intake for at least 8 hours. Fasting glucose between 100 mg/dl to 125 mg/dl is diagnostic of prediabetes. In a patient with classic symptoms of hyperglycemia or hyperglycemic crisis, a random glucose >/= 200 mg/dl is diagnostic for diabetes. In the absence of unequivocal hyperglycemia, results should be confirmed by repeat testing. The classification and Diagnosis of Diabetes Diabetes Care 2021; 46: S19-S40. Current interpretive data was last revised 2022. Calcium 8.9 8.5 - 10.3 mg/dL [facility] Blood 05/25/2024 4:20 PM [employer]ELDING ROBOT OPERATOR 05/25/2024 4:33 PM WELDING ROBOT OPERATOR us Moriah Amin NP LAB BLOOD ORDERABLES Final Re sult [facility] Department [place] [address] * Critical Care (05/25/2024 8:12 AM WELDING ROBOT OPERATOR) Narrative Rafiq Rodriguez MD - 05/25/2024 8:12 AM WELDING ROBOT OPERATOR Moriah Amin NP ? 05/25/2024 ??3:35 PM Critical Care Performed by: Moriah Amin NP Authorized by: Moriah Amin NP ?? CRITICAL CARE: ??Team: ??SICU BLUE ??Shift: ??AM ??Level of Billing: ??Subsequent Hospital Visit Level 3 ??My time spent with this patient was 70 minutes: Critical Provider Statement: I have seen and examined the patient on this day of service. I have reviewed and confirmed the history, physical exam, laboratory, and radiographic data as documented in the ICU note. I have reviewed and discussed my treatment plan with the patient's team and other medical/functional consultant staff. This time was in addition to and separate from care provided by other practitioners on this day of service. ?? us Moriah Amin CREDIT RISK REVIEW OFFICER IN CLINIC/BEDSIDE ORDERABLES Final Result * POCT glucose (05/25/2024 4:16 AM WELDING ROBOT OPERATOR) Glucose, POC 117 70 - 199 mg/dL Blood 05/25/2024 4:16 AM WELDING ROBOT OPERATOR 05/25/2024 4:16 AM WELDING ROBOT OPERATOR Gonzalez Lamar DO LAB POCT ORDERABLES - DE VICE Final Result Performing Organization Address [facility] Co nd Phone Number [facility] [place] [address] * POCT glucose (05/24/2024 11:36 PM WELDING ROBOT OPERATOR) Glucose, POC 116 70 - 199 mg/dL Blood 05/24/2024 11:3 6 PM WELDING ROBOT OPERATOR 05/24/2024 11:36 PM WELDING ROBOT OPERATOR Gonzalez Lamar DO LAB POCT ORDERABLES - DE VICE Final Result Performing Organization Address [facility] Co nd Phone Number [facility] [employer] [place] [address] * POCT glucose (05/24/2024 8:50 PM WELDING ROBOT OPERATOR) Glucose, POC 123 70 - 199 mg/dL Blood 05/24/2024 8:50 PM WELDING ROBOT OPERATOR 05/24/2024 8:50 PM WELDING ROBOT OPERATOR Gonzalez Lamar DO LAB POCT ORDERABLES - DE VICE Final Result Performing Organization Address [facility] Co de Phone Number [facility] [employer] [place] [address] * Critical Care (05/24/2024 8:47 PM WELDING ROBOT OPERATOR) Narrative Ag Lemos MD - 05/24/2024 8:47 PM WELDING ROBOT OPERATOR Ag Lemos MD ? 05/25/2024 ??6:53 AM Critical Care Performed by: Ag Lemos MD Authorized by: Ag Lemos MD ?? CRITICAL CARE: ??Team: ??SICU BLUE ??Shift: ??PM ??Level of Billing: ??Critical Care ??My time spent with this patient was 30 minutes: Critical Provider Statement: I have seen and examined the patient on this day of service. I have reviewed and confirmed the history, physical exam, laboratory and radiologic data as documented in the signed ICU note. I have reviewed and discussed my treatment plan with the ICU team and other medical/functional consultant staff, making frequent assessments and decisions regarding this patient's complex medical care. Critical Care time was exclusive of time spent performing separately billed procedures, treating other patients, and teaching. This time was in addition to and separate from critical care provided by other practitioners in my group on this day of service. Critical Care was necessary to treat or prevent imminent or life-threatening deterioration of the following conditions: ? Acute pain/acute postoperative pain ?? Type B aortic dissection ??This time was spent by me doing the following: ? Acute pain control ?? Initiation/active titration of vasoactive medications ?? I spent time reviewing and interpreting data from bedside monitors, laboratory results, and imaging, I spent time documenting in the medical record and I spent time discussing the management of this critically ill patient with consultants and the medical staff us Ag Lemos MD IN CLINIC/BEDSIDE SHAUNA LOPEZ Final Result * eGFR (05/24/2024 5:43 PM WELDING ROBOT OPERATOR) [facility] eGFR >90 >=60 mL/min/1. 73 m2 Comment: Interpretive Data Reference Interval Normal ?>/= 90 mL/min/1.73m2 Mildly decreased* ? 60 - 89 mL/min/1.73m2 Mildly to moderately decreased ?45 - 59 mL/min/1.73m2 Moderately to severely decreased ??30 - 44 mL/min/1.73m2 Severely decreased ?15 - 29 mL/min/1.73m2 Kidney Failure ?< 15 ??mL/min/1.73m2 *Relative to young adult level Estimated glomerular filtration rate is determined by the 2020 CKD-EPI equation recommended by the National Kidney Foundation (A Unifying Approach to GFR Estimation: Recommendations of the NKF-ASK Task Force on Reassessing the Inclusion of Race in Diagnosing Kidney Disease, JASN 2020). The CKD-EPI equation should not be used for patients with unstable renal function and has not been validated in children and those over 70. Current interpretive data was last reviewed 2021. Blood 05/24/2024 5:43 PM WELDING ROBOT OPERATOR 05/24/2024 6:00 PM WELDING ROBOT OPERATOR us Gonzalez Lamar DO LAB BLOOD ORDERABLES Fin al Result [facility] [place] [address] * Differential, auto (05/24/2024 5:43 PM WELDING ROBOT OPERATOR) Pathologist [facility] Neutrophil abs 4.9 1.5 - 6.5 K/cumm Imm gran abs 0.0 0.0 - 0.1 K/cumm [facility] Lymphocyte abs 1.4 0.8 - 3.3 K/cumm [facility] Monocyte abs 0.8 0.2 - 0.8 K/cumm [facility] Eosinophil abs 0.1 0.0 - 0.5 K/cumm [facility] Basophil abs 0.1 0.0 - 0.1 K/cumm [facility] Neutrophil pct 67.4 % [facility] Comment: Interpretive Data Percent cell count reference ranges are not reported, since discordance with absolute values may lead to misinterpretation of CBC data. Current Interpretive Data was last revised on 2017. Imm gran pct 0.4 % [facility] Comment: Interpretive Data Percent cell count reference ranges are not reported, since discordance with absolute values may lead to misinterpretation of CBC data. Current Interpretive Data was last revised on 2017. Lymphocyte pct 19.4 % [facility] Comment: Interpretive Data Percent cell count reference ranges are not reported, since discordance with absolute values may lead to misinterpretation of CBC data. Current Interpretive Data was last revised on 2017. Monocyte pct 11.3 % [facility] Comment: Interpretive Data Percent cell count reference ranges are not reported, since discordance with absolute values may lead to misinterpretation of CBC data. Current Interpretive Data was last revised on 2017. Eosinophil pct 0.8 % [facility] Comment: Interpretive Data Percent cell count reference ranges are not reported, since discordance with absolute values may lead to misinterpretation of CBC data. Current Interpretive Data was last revised on 2017. Basophil pct 0.7 % [facility] Comment: Interpretive Data Percent cell count reference ranges are not reported, since discordance with absolute values may lead to misinterpretation of CBC data. Current Interpretive Data was last revised on 2017. Blood 05/24/2024 5:43 PM WELDING ROBOT OPERATOR 05/24/2024 6:00 PM WELDING ROBOT OPERATOR us Gonzalez Lamar DO LAB BLOOD ORDERABLES Fin al Result [facility] [place] [address] * (ABNORMAL) CBC with auto differential (05/24/2024 5:43 PM WELDING ROBOT OPERATOR) WBC 7.2 3.8 - 9.9 K/cumm Hgb 11.5(L) 13.0 - 17.5 g/dL [facility] Hct 34.7(L) 38.9 - 50.3 % [facility] Plt 233 150 - 400 K/cumm [facility] MPV 9.2 9.1 - 12.3 fL [facility] RBC 3.77(L) 4.30 - 5.80 M/cumm [facility] MCV 92.0 81.3 - 96.4 fL [facility] MCH 30.5 27.1 - 33.3 pg [facility] MCHC 33.1 32.3 - 35.7 g/dL [facility] RDW CV 13.0 11.1 - 14.9 % [facility] RDW SD 43.8 35.7 - 48.1 fL [facility] NRBC abs 0.00 0.00 - 0.01 K/cumm [facility] Blood 05/24/2024 5:43 PM WELDING ROBOT OPERATOR 05/24/2024 6:00 PM WELDING ROBOT OPERATOR Gonzalez Lamar DO LAB BLOOD ORDERABLES Fin al Result Performing Organization Address [facility] de Phone Number [facility] Department [place] [address] * Lactate, whole blood (05/24/2024 5:43 PM WELDING ROBOT OPERATOR) Lactate, bld 0.7 0.7 - 2.0 mmol/L Blood 05/24/2024 5:43 PM WELDING ROBOT OPERATOR 05/24/2024 5:50 PM WELDING ROBOT OPERATOR Moriah Amin CREDIT RISK REVIEW OFFICER LAB BLOOD ORDERABLES Final Re sult Performing Organization Address [facility] de Phone Number [facility] Department [place] [address] * Phosphorus (05/24/2024 5:43 PM WELDING ROBOT OPERATOR) Phosphorus, pl 2.7 2.3 - 4.5 mg/dL Blood 05/24/2024 5:43 PM WELDING ROBOT OPERATOR 05/24/2024 6:00 PM WELDING ROBOT OPERATOR Gonzalez Lamar DO LAB BLOOD ORDERABLES Fin al Result Performing Organization Address [facility] Co de Phone Number [facility] [place] [address] * Magnesium (05/24/2024 5:43 PM WELDING ROBOT OPERATOR) [facility] Magnesium 2.0 1.4 - 2.5 mg/dL Blood 05/24/2024 5:43 PM WELDING ROBOT OPERATOR 05/24/2024 6:00 PM WELDING ROBOT OPERATOR Gonzalez Lamar DO LAB BLOOD ORDERABLES Fin al Result Performing Organization Address [facility] de Phone Number [facility] [place] [address] * Amylase (05/24/2024 5:43 PM WELDING ROBOT OPERATOR) [facility] Amylase 35 30 - 99 Units/L Blood 05/24/2024 5:43 PM WELDING ROBOT OPERATOR 05/24/2024 6:00 PM WELDING ROBOT OPERATOR Moriah Amin CREDIT RISK REVIEW OFFICER LAB BLOOD ORDERABLES Final Re sult Performing Organization Address [facility] de Phone Number [facility] [employer] [place] [address] * Comprehensive metabolic panel (05/24/2024 5:43 PM WELDING ROBOT OPERATOR) [facility] Sodium 140 135 - 145 mmol/L Potassium, pl 3.9 3.3 - 4.9 mmol/L [facility] Chloride 105 97 - 110 mmol/L [facility] CO2 25 22 - 32 mmol/L [facility] Anion gap 10 2 - 15 mmol/L [facility] BUN 6 6 - 25 mg/dL [facility] Creatinine 0.88 0.80 - 1.30 mg/dL [facility] Glucose 86 70 - 199 mg/dL [facility] Comment: Interpretive Data Fasting glucose >/= 126 mg/dl is diagnostic for diabetes. ?? Fasting is defined as no caloric intake for at least 8 hours. Fasting glucose between 100 mg/dl to 125 mg/dl is diagnostic of prediabetes. In a patient with classic symptoms of hyperglycemia or hyperglycemic crisis, a random glucose >/= 200 mg/dl is diagnostic for diabetes. In the absence of unequivocal hyperglycemia, results should be confirmed by repeat testing. The classification and Diagnosis of Diabetes Diabetes Care 2021; 46: S19-S40. Current interpretive data was last revised 2022. Calcium 8.9 8.5 - 10.3 mg/dL [facility] Bilirubin, total 0.8 0.1 - 1.2 mg/dL [facility] Protein, pl 6.7 6.5 - 8.5 g/dL [facility] Albumin 4.1 3.5 - 5.0 g/dL [facility] Alk phos 81 40 - 130 Units/L [facility] ALT 15 7 - 55 Units/L [facility] AST 17 10 - 50 Units/L [facility] Blood 05/24/2024 5:43 PM WELDING ROBOT OPERATOR 05/24/2024 6:00 PM WELDING ROBOT OPERATOR Gonzalez Lamar DO LAB BLOOD ORDERABLES Fin al Result [facility] Department [place] [employer] [place] [address] * POCT glucose (05/24/2024 3:52 PM WELDING ROBOT OPERATOR) Glucose, POC 84 70 - 199 mg/dL Blood 05/24/2024 3:52 PM WELDING ROBOT OPERATOR 05/24/2024 3:52 PM WELDING ROBOT OPERATOR Gonzalez Lamar DO LAB POCT ORDERABLES - DE VICE Final Result Performing Organization Address [facility]/ZIP Co de Phone Number [facility] [place] [address] * POCT glucose (05/24/2024 11:06 AM WELDING ROBOT OPERATOR) Glucose, POC 138 70 - 199 mg/dL Blood 05/24/2024 11:0 6 AM WELDING ROBOT OPERATOR 05/24/2024 11:06 AM WELDING ROBOT OPERATOR us Gonzalez Pinaaamir DO LAB POCT ORDERABLES - DE VICE Final Result Performing Organization Address [facility] Co nd Phone Number [facility] [place] [address] * POCT glucose (05/24/2024 7:46 AM WELDING ROBOT OPERATOR) Glucose, POC 86 70 - 199 mg/dL Blood 05/24/2024 7:46 AM WELDING ROBOT OPERATOR 05/24/2024 7:46 AM WELDING ROBOT OPERATOR Gonzalez Lamar DO LAB POCT ORDERABLES - DE VICE Final Result Performing Organization Address [facility] Phone Number [facility] Department [place] [address] * Critical Care (05/24/2024 6:15 AM WELDING ROBOT OPERATOR) Narrative Rafiq Rodriguez MD - 05/24/2024 6:15 AM WELDING ROBOT OPERATOR Moriah Amin NP ? 05/24/2024 ??5:42 PM Critical Care Performed by: Moriah Amin NP Authorized by: Moriah Amin NP ?? CRITICAL CARE: ??Team: ??SICU BLUE ??Shift: ??AM ??Level of Billing: ??Critical Care ??My time spent with this patient was 100 minutes: Critical Provider Statement: I have seen and examined the patient on this day of service. I have reviewed and confirmed the history, physical exam, laboratory and radiologic data as documented in the signed ICU note. I have reviewed and discussed my treatment plan with the ICU team and other medical/functional consultant staff, making frequent assessments and decisions regarding this patient's complex medical care. Critical Care time was exclusive of time spent performing separately billed procedures, treating other patients, and teaching. This time was in addition to and separate from critical care provided by other practitioners in my group on this day of service. Critical Care was necessary to treat or prevent imminent or life-threatening deterioration of the following conditions: ?? us Moriah Amin CREDIT RISK REVIEW OFFICER IN CLINIC/BEDSIDE ORDERABLES Final Result * POCT glucose (05/24/2024 3:23 AM WELDING ROBOT OPERATOR) Glucose, POC 85 70 - 199 mg/dL Blood 05/24/2024 3:23 AM WELDING ROBOT OPERATOR 05/24/2024 3:23 AM WELDING ROBOT OPERATOR us Gonzalez Lamra DO LAB POCT ORDERABLES - DE VICE Final Result Performing Organization Address [facility] Co de Phone Number [facility] [employer] [place] [address] * POCT glucose (05/23/2024 11:04 PM WELDING ROBOT OPERATOR) Glucose, POC 84 70 - 199 mg/dL Blood 05/23/2024 11:0 4 PM WELDING ROBOT OPERATOR 05/23/2024 11:04 PM WELDING ROBOT OPERATOR Gonzalez Lamar DO LAB POCT ORDERABLES - DE VICE Final Result Performing Organization Address [facility] Phone Number [facility] [employer] [place] [address] * Lactate (05/23/2024 8:33 PM WELDING ROBOT OPERATOR) Lactate 0.7 0.7 - 2.0 mmol/L Blood 05/23/2024 8:33 PM WELDING ROBOT OPERATOR 05/23/2024 9:39 PM WELDING ROBOT OPERATOR Gonzalez Lamar DO LAB BLOOD ORDERABLES Fin al Result Performing Organization Address [facility] Co de Phone Number [facility] [employer] [place] [address] * eGFR (05/23/2024 8:33 PM WELDING ROBOT OPERATOR) eGFR >90 >=60 mL/min/1. 73 m2 Comment: Interpretive Data Reference Interval Normal ?>/= 90 mL/min/1.73m2 Mildly decreased* ? 60 - 89 mL/min/1.73m2 Mildly to moderately decreased ?45 - 59 mL/min/1.73m2 Moderately to severely decreased ??30 - 44 mL/min/1.73m2 Severely decreased ?15 - 29 mL/min/1.73m2 Kidney Failure ?< 15 ??mL/min/1.73m2 *Relative to young adult level Estimated glomerular filtration rate is determined by the 2020 CKD-EPI equation recommended by the National Kidney Foundation (A Unifying Approach to GFR Estimation: Recommendations of the NKF-ASK Task Force on Reassessing the Inclusion of Race in Diagnosing Kidney Disease, JASN 2020). The CKD-EPI equation should not be used for patients with unstable renal function and has not been validated in children and those over 70. Current interpretive data was last reviewed 2021. Blood 05/23/2024 8:33 PM WELDING ROBOT OPERATOR 05/23/2024 9:17 PM WELDING ROBOT OPERATOR us Gonzalez Lamar DO LAB BLOOD ORDERABLES Fin al Result Performing Organization Address City/State/[facility] Co de Phone Number [facility] [place] [address] * Differential, auto (05/23/2024 8:33 PM WELDING ROBOT OPERATOR) Neutrophil abs 3.9 1.5 - 6.5 K/cumm Imm gran abs 0.0 0.0 - 0.1 K/cumm [facility] Lymphocyte abs 1.9 0.8 - 3.3 K/cumm [facility] Monocyte abs 0.8 0.2 - 0.8 K/cumm [facility] Eosinophil abs 0.0 0.0 - 0.5 K/cumm [facility] Basophil abs 0.0 0.0 - 0.1 K/cumm [facility] Neutrophil pct 58.1 % [facility] Comment: Interpretive Data Percent cell count reference ranges are not reported, since discordance with absolute values may lead to misinterpretation of CBC data. Current Interpretive Data was last revised on 2017. Imm gran pct 0.4 % [facility] Comment: Interpretive Data Percent cell count reference ranges are not reported, since discordance with absolute values may lead to misinterpretation of CBC data. Current Interpretive Data was last revised on 2017. Lymphocyte pct 28.1 % [facility] Comment: Interpretive Data Percent cell count reference ranges are not reported, since discordance with absolute values may lead to misinterpretation of CBC data. Current Interpretive Data was last revised on 2017. Monocyte pct 12.4 % [facility] Comment: Interpretive Data Percent cell count reference ranges are not reported, since discordance with absolute values may lead to misinterpretation of CBC data. Current Interpretive Data was last revised on 2017. Eosinophil pct 0.4 % [facility] Comment: Interpretive Data Percent cell count reference ranges are not reported, since discordance with absolute values may lead to misinterpretation of CBC data. Current Interpretive Data was last revised on 2017. Basophil pct 0.6 % [facility] Comment: Interpretive Data Percent cell count reference ranges are not reported, since discordance with absolute values may lead to misinterpretation of CBC data. Current Interpretive Data was last revised on 2017. Blood 05/23/2024 8:33 PM WELDING ROBOT OPERATOR 05/23/2024 9:29 PM WELDING ROBOT OPERATOR us Gonzalez Lamar DO LAB BLOOD ORDERABLES Fin al Result [facility] [place] [address] * (ABNORMAL) Calcium, ionized (05/23/2024 8:33 PM WELDING ROBOT OPERATOR) Calcium, Ionized 4.48(L) 4.50 - 5.10 mg/dL Blood 05/23/2024 8:33 PM WELDING ROBOT OPERATOR 05/23/2024 9:17 PM WELDING ROBOT OPERATOR Gonzalez Lamar DO LAB BLOOD ORDERABLES Fin al Result Performing Organization Address [facility] de Phone Number [facility] [place] [address] * (ABNORMAL) CBC with auto differential (05/23/2024 8:33 PM WELDING ROBOT OPERATOR) [facility] WBC 6.8 3.8 - 9.9 K/cumm Hgb 11.4(L) 13.0 - 17.5 g/dL [facility] Hct 33.7(L) 38.9 - 50.3 % [facility] Plt 237 150 - 400 K/cumm [facility] MPV 9.5 9.1 - 12.3 fL [facility] RBC 3.80(L) 4.30 - 5.80 M/cumm [facility] MCV 88.7 81.3 - 96.4 fL [facility] MCH 30.0 27.1 - 33.3 pg [facility] MCHC 33.8 32.3 - 35.7 g/dL [facility] RDW CV 13.0 11.1 - 14.9 % [facility] RDW SD 42.2 35.7 - 48.1 fL [facility] NRBC abs 0.00 0.00 - 0.01 K/cumm [facility] Blood 05/23/2024 8:33 PM WELDING ROBOT OPERATOR 05/23/2024 9:29 PM WELDING ROBOT OPERATOR Gonzalez Lamar DO LAB BLOOD ORDERABLES Fin al Result Performing Organization Address [facility] Co de Phone Number [facility] [place] [address] * aPTT (05/23/2024 8:33 PM WELDING ROBOT OPERATOR) [facility] aPTT 31 28 - 38 sec Comment: Interpretive Data Heparin therapeutic range: 66.0 - 100.0 seconds. Range based on correlation with therapeutic heparin activity range of 0.3 - 0.7 Units/mL. Current interpretive data was last revised on 2023. Blood 05/23/2024 8:33 PM WELDING ROBOT OPERATOR 05/23/2024 9:20 PM WELDING ROBOT OPERATOR Gonzalez Lamar DO LAB BLOOD ORDERABLES Fin al Result Performing Organization Address [facility] de Phone Number [facility] [place] [address] * (ABNORMAL) Protime-INR (05/23/2024 8:33 PM WELDING ROBOT OPERATOR) PT 14.6(H) 9.7 - 13.0 sec INR 1.34(H) 0.90 - 1.20 [facility] Comment: Interpretive data Oral anticoagulant therapeutic ranges: Venous thromboembolism prophylaxis or treatment: 2.0-3.0 CARDIOLOGY Standard range: 2.0-3.0 High-intensity range: 2.5-3.5 Refer to indication-specific guidelines for appropriate target ranges for prosthetic heart valve replacement. Current interpretive data was last revised on 2019. Blood 05/23/2024 8:33 PM WELDING ROBOT OPERATOR 05/23/2024 9:20 PM WELDING ROBOT OPERATOR Gonzalez Lamar DO LAB BLOOD ORDERABLES Fin al Result Performing Organization Address [facility] de Phone Number [facility] [place] [address] * Type and screen (05/23/2024 8:33 PM WELDING ROBOT OPERATOR) Ellen, indirect Negative ABO Rh A Positive [facility] Blood 05/23/2024 8:33 PM WELDING ROBOT OPERATOR 05/23/2024 9:31 PM WELDING ROBOT OPERATOR Narrative [facility] - 05/23/2024 10:36 PM WELDING ROBOT OPERATOR Has the patient had Daratumumab or Isatuximab in the past 6 months?->Unknown Moriah Amin CREDIT RISK REVIEW OFFICER LAB BLOOD BANK TEST ORDERABLE S Final Result Performing Organization Address [facility] Co de Phone Number [facility] [place] [address] * Phosphorus (05/23/2024 8:33 PM WELDING ROBOT OPERATOR) Phosphorus, pl 2.5 2.3 - 4.5 mg/dL Blood 05/23/2024 8:33 PM WELDING ROBOT OPERATOR 05/23/2024 9:17 PM WELDING ROBOT OPERATOR Gonzalez Lamar DO LAB BLOOD ORDERABLES Fin al Result Performing Organization Address [facility] de Phone Number [facility] [place] [address] * Magnesium (05/23/2024 8:33 PM WELDING ROBOT OPERATOR) Magnesium 2.0 1.4 - 2.5 mg/dL Blood 05/23/2024 8:33 PM WELDING ROBOT OPERATOR 05/23/2024 9:17 PM WELDING ROBOT OPERATOR Gonzalez Lamar DO LAB BLOOD ORDERABLES Fin al Result Performing Organization Address [facility] Co de Phone Number [facility] [place] [address] * Creatine kinase (CK), total (05/23/2024 8:33 PM WELDING ROBOT OPERATOR) CK 159 40 - 300 Units/L Blood 05/23/2024 8:33 PM WELDING ROBOT OPERATOR 05/23/2024 9:17 PM WELDING ROBOT OPERATOR Gonzalez Lamar DO LAB BLOOD ORDERABLES Fin al Result Performing Organization Address [facility] Co de Phone Number [facility] [place] [address] * (ABNORMAL) Comprehensive metabolic panel (05/23/2024 8:33 PM WELDING ROBOT OPERATOR) Sodium 141 135 - 145 mmol/L Potassium, pl 3.2(L) 3.3 - 4.9 mmol/L [facility] Chloride 105 97 - 110 mmol/L [facility] CO2 25 22 - 32 mmol/L [facility] Anion gap 11 2 - 15 mmol/L [facility] BUN 11 6 - 25 mg/dL [facility] Creatinine 1.03 0.80 - 1.30 mg/dL [facility] Glucose 84 70 - 199 mg/dL [facility] Comment: Interpretive Data Fasting glucose >/= 126 mg/dl is diagnostic for diabetes. ?? Fasting is defined as no caloric intake for at least 8 hours. Fasting glucose between 100 mg/dl to 125 mg/dl is diagnostic of prediabetes. In a patient with classic symptoms of hyperglycemia or hyperglycemic crisis, a random glucose >/= 200 mg/dl is diagnostic for diabetes. In the absence of unequivocal hyperglycemia, results should be confirmed by repeat testing. The classification and Diagnosis of Diabetes Diabetes Care 202; 46: S19-S40. Current interpretive data was last revised 2022. Calcium 9.0 8.5 - 10.3 mg/dL [facility] Bilirubin, total 1.2 0.1 - 1.2 mg/dL [facility] Protein, pl 7.0 6.5 - 8.5 g/dL [facility] Albumin 4.2 3.5 - 5.0 g/dL [facility] Alk phos 83 40 - 130 Units/L [facility] ALT 15 7 - 55 Units/L [facility] AST 16 10 - 50 Units/L [facility] Blood 05/23/2024 8:33 PM WELDING ROBOT OPERATOR 05/23/2024 9:17 PM WELDING ROBOT OPERATOR us Gonzalez Lamar DO LAB BLOOD ORDERABLES Fin al Result [facility] [place] [address] * CT Body Outside Reference (05/23/2024 8:22 PM WELDING ROBOT OPERATOR) Impressions [facility] - 05/23/2024 8:22 PM WELDING ROBOT OPERATOR These images are for Reference purposes only and have not been reviewed by [facility]. ??There will be no report generated by a [facility]iologist. Narrative [facility] - 05/23/2024 8:22 PM WELDING ROBOT OPERATOR EXAMINATION: ??Images For Reference Purposes Only us Gadiel Ireland MD IMG CT PROCEDURES Final Result [facility] * CT Body Outside Consult (05/23/2024 8:18 PM WELDING ROBOT OPERATOR) Anatomical Region Laterality Modality Body N/A Computed Tomogra phy 05/24/2024 8:05 AM WELDING ROBOT OPERATOR Impressions 05/24/2024 8:05 AM WELDING ROBOT OPERATOR 1. 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 ??No acute CT findings in the chest abdomen or pelvis The findings, conclusions and recommendations within this report do not replace the initial findings, conclusions ??and recommendations made at the facility where the study was performed based upon the imaging and clinical condition at that time. ??Comparison with the prior report and clinical history is necessary. ??The provided images may or may not represent the [place] source data set and thus may contain changes that may lower the accuracy of this second-opinion interpretation. Electronically signed by: Shahrzad Zimmerman M.D. Narrative 05/24/2024 8:05 AM WELDING ROBOT OPERATOR EXAMINATION: RADIOLOGY CONSULTATION ON OUTSIDE IMAGING STUDY STUDY INITIALLY PERFORMED: 05/23/2024 at [facility]. TYPE OF STUDY: Multiple CT images of the chest abdomen pelvis with IV contrast are provided at the time of this interpretation. CONTRAST ROUTE: Contrast was administered via the intravenous route. The protocol was adequate to address the clinical question. The outside final report was not available at the time of this second opinion interpretation. TYPE OF CONSULTATION: Consult on outside imaging study with images submitted through Outside Image Sharing Service DATE OF CONSULTATION: 05/24/2024 7:56 AM HISTORY: Aortic dissection status post endovascular repair, acute abdominal pain COMPARISON: Multiple priors most recent 05/19/2024 FINDINGS: Postsurgical changes of thoracic endovascular aortic repair are again noted with proximal attachment site just distal to the left common carotid artery origin and distal attachment sites in the abdominal aorta near the origin of the inferior mesenteric artery. ??Patent left subclavian artery stent. Unchanged filling of the false lumen at the level of the diaphragmatic hiatus with some mural thrombus within the false lumen is well. 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 Celiac axis arises from the false lumen and appears widely patent. Superior and inferior mesenteric arteries appear patent. ??Renal arteries appear patent. ??Dissection flap level of the stent graft extends into the proximal left common iliac artery, unchanged. Unchanged small outpouching along the left common femoral artery on series 3 image 243. Nonvascular findings: No consolidation, pneumothorax, pleural effusion. ??No thoracic adenopathy. ??Normal heart size without pericardial effusion. 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 ??Splenic granulomas. Pancreas, adrenals, appear normal. ??Bilateral nonobstructing renal stones. ??No suspicious renal lesion or hydronephrosis. ??Gallbladder unremarkable No free air or fluid. ??Urinary bladder partially distended. ??Prostate gland present. No bowel obstruction. No suspicious osseous lesion Procedure Note Shahrzad Zimmerman MD - 05/24/2024 EXAMINATION: RADIOLOGY CONSULTATION ON OUTSIDE IMAGING STUDY STUDY INITIALLY PERFORMED: 05/23/2024 at [facility]. TYPE OF STUDY: Multiple CT images of the chest abdomen pelvis with IV contrast are provided at the time of this interpretation. CONTRAST ROUTE: Contrast was administered via the intravenous route. The protocol was adequate to address the clinical question. The outside final report was not available at the time of this second opinion interpretation. TYPE OF CONSULTATION: Consult on outside imaging study with images submitted through Outside Image Sharing Service DATE OF CONSULTATION: 05/24/2024 7:56 AM HISTORY: Aortic dissection status post endovascular repair, acute abdominal pain COMPARISON: Multiple priors most recent 05/19/2024 FINDINGS: Postsurgical changes of thoracic endovascular aortic repair are again noted with proximal attachment site just distal to the left common carotid artery origin and distal attachment sites in the abdominal aorta near the origin of the inferior mesenteric artery. Patent left subclavian artery stent. Unchanged filling of the false lumen at the level of the diaphragmatic hiatus with some mural thrombus within the false lumen is well. 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 Celiac axis arises from the false lumen and appears widely patent. Superior and inferior mesenteric arteries appear patent. Renal arteries appear patent. Dissection flap level of the stent graft extends into the proximal left common iliac artery, unchanged. Unchanged small outpouching along the left common femoral artery on series 3 image 243. Nonvascular findings: No consolidation, pneumothorax, pleural effusion. No thoracic adenopathy. Normal heart size without pericardial effusion. 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 Splenic granulomas. Pancreas, adrenals, appear normal. Bilateral nonobstructing renal stones. No suspicious renal lesion or hydronephrosis. Gallbladder unremarkable No free air or fluid. Urinary bladder partially distended. Prostate gland present. No bowel obstruction. No suspicious osseous lesion IMPRESSION: 1. 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 No acute CT findings in the chest abdomen or pelvis The findings, conclusions and recommendations within this report do not replace the initial findings, conclusions and recommendations made at the facility where the study was performed based upon the imaging and clinical condition at that time. Comparison with the prior report and clinical history is necessary. The provided images may or may not represent the [place] source data set and thus may contain changes that may lower the accuracy of this second-opinion interpretation. Electronically signed by: Shahrzad Zimmerman M.D. Gadiel Ireland MD IMG CT PROCEDURES Final Result * POCT glucose (05/23/2024 7:47 PM WELDING ROBOT OPERATOR) Glucose, POC 80 70 - 199 mg/dL Blood 05/23/2024 7:47 PM WELDING ROBOT OPERATOR 05/23/2024 7:47 PM WELDING ROBOT OPERATOR Gonzalez Otoniel Wishy DO LAB POCT ORDERABLES - DE VICE Final Result [facility] Department [place] [address] * POCT Rapid HIV Antibody Community Screening-[facility] Eligible (05/21/2024 7:35 PM WELDING ROBOT OPERATOR) [facility] Rapid HIV, POC Negative Negative Lot Number [id number] QC Control Line Acceptable Blood 05/21/2024 7:35 PM WELDING ROBOT OPERATOR Marcus Amaya MD POINT OF CARE TEST ORD ERABLES Final Result * (ABNORMAL) Oxycodone Confirmation, Urine (05/21/2024 5:34 PM WELDING ROBOT OPERATOR) [facility] Oxycodone Conf, Ur Confirmed Positive(A) CutOff 50 ng/mL Oxymorphone Conf, Ur Does Not Confirm CutOff 50 ng/mL [facility] Comment: Interpretive Data This test detects the presence or absence of drug compounds using LC Tandem mass spectrometry and is not intended to assess compliance with prescribed medications. While this test is highly specific, false positive and false negative results may occur in very rare circumstances. Contact the laboratory for consultation, if needed. Performance characteristics were determined by the [facility] in a manner consistent with CLIA requirement and has not been cleared or approved by the U.S. Food and Drug Administration. Current interpretive data was last revised 2020. Urine 05/21/2024 5:34 PM WELDING ROBOT OPERATOR 05/21/2024 5:46 PM WELDING ROBOT OPERATOR Marcus Amaya MD LAB URINE ORDERABLES F inal Result Performing Organization Address City/[facility]/ZIP Co de Phone Number [facility] [place] [address] * (ABNORMAL) Fentanyl Confirmation, Urine (05/21/2024 5:34 PM WELDING ROBOT OPERATOR) [facility] Fentanyl Conf, Ur Confirmed Positive(A) Cutoff 0.3ng/mL Acetylfentanyl Conf, Ur Does Not Confirm Cutoff 1 ng/mL [facility] Acrylfentanyl Conf, Ur Does Not Confirm Cutoff 1 ng/mL [facility] Furanylfentanyl Conf, Ur Does Not Confirm Cutoff 1 ng/mL [facility] Fentanyl Metabolite (Norfentanyl) Conf, Ur Confirmed Positive(A) CutOff 5 ng/mL [facility] Xylazine MS Does Not Confirm Cutoff 1 ng/mL [facility] Comment: Interpretive Data This test detects the presence or absence of drug compounds using LC Tandem mass spectrometry and is not intended to assess compliance with prescribed medications. While this test is highly specific, false positive and false negative results may occur in very rare circumstances. Contact the laboratory for consultation, if needed. Performance characteristics were determined by the [facility] in a manner consistent with CLIA requirement and has not been cleared or approved by the U.S. Food and Drug Administration. Current interpretive data was last revised 2020. Urine 05/21/2024 5:34 PM WELDING ROBOT OPERATOR 05/21/2024 5:46 PM WELDING ROBOT OPERATOR Marcus Amaya MD LAB URINE ORDERABLES F inal Result [facility] [place] [address] * (ABNORMAL) Drugs of Abuse Screen, Urine with Reflex Confirmation (05/21/2024 5:34 PM WELDING ROBOT OPERATOR) Amphetamine, ur Screen Positive, presumptive (A) CutOff 500ng/mL Comment: Interpretive Data - Amphetamines: ??Samples containing greater than 500 ng/mL d-methamphetamine ??or other cross-reacting amphetamine compounds are reported as positive. ??Amphetamine immunoassays are subject to significant false positive rates due to cross-reactivity of non-amphetamine drugs. Confirmatory testing required for definitive results. Current Interpretive Data was last reviewed 2022. Barbiturates, ur Not Detected CutOff 200ng/mL [facility] Comment: Interpretive Data - Barbiturates: ??Samples containing greater than 200 ng/mL secobarbital or other cross-reacting barbiturate compounds are reported as positive. ??False positive and false negative results are possible. Confirmatory testing required for definitive results. Current Interpretive Data was last reviewed 2022. Benzodiazepines, ur Screen Positive, presumptive (A) CutOff 100ng/mL [facility] Comment: Interpretive Data - Benzodiazepines: ??Samples containing greater than 100 ng/mL nordiazepam or other cross-reacting compounds are reported as positive. False positive and false negative results are possible. Confirmatory testing required for definitive results. Current Interpretive Data was last reviewed 2022. Cannabinoids, ur Screen Positive, presumptive (A) CutOff 50 ng/mL [facility] Comment: Interpretive Data - Cannabinoids: ??Samples containing greater than 50 ng/mL delta-9 THC -COOH or other cross-reacting compounds are reported as positive. ??False positive and false negative results are possible. ??Confirmatory testing required for definitive results. Current Interpretive Data was last reviewed 2022. Cocaine, ur Not Detected CutOff 150ng/mL [facility] Comment: Interpretive Data - Cocaine: ??Samples containing greater than 150 ng/mL benzoylecgonine or other cross-reacting compounds are reported as positive. False positive and false negative results are possible. Confirmatory testing required for definitive results. Current Interpretive Data was last reviewed 2022. Fentanyl, Ur Screen Positive, presumptive (A) CutOff 5 ng/mL [facility] Comment: Interpretive Data - Fentanyl: ?? Samples containing greater than 5 ng/mL norfentanyl, fentanyl, or other cross-reacting fentanyl compounds are reported as positive. False positive and false negative results are possible. Confirmatory testing required for definitive results. Current Interpretive Data was last reviewed 2023. Methadone, ur Not Detected CutOff 300ng/mL [facility] Comment: Interpretive Data - Methadone: ??Samples containing greater than 300 ng/mL d,l-methadone or other cross-reacting compounds are reported as positive. ??False positive and false negative results are possible. Confirmatory testing required for definitive results. Current Interpretive Data was last reviewed 2022. Opiates, ur Not Detected CutOff 300ng/mL [facility] Comment: Interpretive Data - Opiates: ??Samples containing greater than 300 ng/mL morphine or other cross-reacting compounds are reported as positive. ??False positive and false negative results are possible. Confirmatory testing required for definitive results. Current Interpretive Data was last reviewed 2022. Oxycodone, ur Screen Positive, presumptive (A) CutOff 100ng/mL [facility] Comment: Interpretive Data - Oxycodone: ??Samples containing greater than 100 ng/mL oxycodone or other cross-reacting compounds are reported as ??positive. ??False positive and false negative results are possible. Confirmatory testing required for definitive results. Current Interpretive Data was last reviewed 2022. Phencyclidine, ur Not Detected CutOff 25 ng/mL [facility] Comment: Interpretive Data - Phencyclidine: ??Samples containing greater than 25 ng/mL phencyclidine or other cross-reacting compounds are reported as positive. ??False positive and false negative results are possible. Confirmatory testing required for definitive results. Current Interpretive Data was last reviewed 2022. Urine Creatinine 357 mg/dL [facility] Comment: Interpretive Data Urine Creatinine: < 10 mg/dL is extremely dilute = or > 10 but < 20 mg/dL is dilute = or > 20 mg/dL is normal Current Interpretive Data was last revised on 2017. Urine 05/21/2024 5:34 PM WELDING ROBOT OPERATOR 05/21/2024 5:46 PM WELDING ROBOT OPERATOR Narrative [facility] - 05/21/2024 6:16 PM WELDING ROBOT OPERATOR Drug of Abuse screening is performed by immunoassay for medical purposes only. ??This is not to be used for Pain Management purposes. ??If Detected, confirmation testing will be performed for Amphetamines, Cocaine, Fentanyl, Methadone, Opiates, Oxycodone or Phencyclidine. Marcus Amaya MD LAB URINE ORDERABLES F inal Result [facility] Department [place] [address] * (ABNORMAL) Urinalysis reflex to microscopic (05/21/2024 5:34 PM WELDING ROBOT OPERATOR) Color, ur Yellow Yellow Clarity, ur Clear Clear [facility] Specific gravity, ur 1.032(H) 1.003 - 1.030 [facility] pH, urine 6.0 [facility] Comment: Interpretive Data ? Urine pH is affected by diet, medications, systemic acid-base disturbances, and renal tubular function. ??pH may affect urinary stone formation. ??For example, urine pH below 6.0 may help reduce the tendency for calcium phosphate stones and pH greater than 6.0 may reduce the tendency for uric acid stone formation. Source: [facility] Current Interpretive Data was last revised on 2017 Protein, ur ql 2+(A) Negative [facility] Glucose, ur ql Negative Negative [facility] Ketones, ur 1+(A) Negative [facility] Bilirubin, ur Negative Negative [facility] Blood, ur Negative Negative [facility] Urobilinogen, ur <2.0 <2.0 mg/dL [facility] Nitrite, ur Negative Negative [facility] Leukocyte esterase, ur Negative Negative [facility] UA reflex comment Reflex to microscopic UA will be performed. [facility] Urine 05/21/2024 5:34 PM WELDING ROBOT OPERATOR 05/21/2024 5:39 PM WELDING ROBOT OPERATOR us Marcus Amaya MD LAB URINE ORDERABLES F inal Result [facility] [place] [address] * Amphetamine Confirmation, Urine (05/21/2024 5:34 PM WELDING ROBOT OPERATOR) Amphetamine Conf, Ur Does Not Confirm CutOff 150ng/mL Methamphetamine Conf, Ur Does Not Confirm CutOff 150ng/mL [facility] MDA Conf, Ur Does Not Confirm CutOff 150ng/mL [facility] MDMA Conf, Ur Does Not Confirm CutOff 50 ng/mL [facility] MDEA Conf, Ur Does Not Confirm CutOff 150ng/mL [facility] MBDB Conf, Ur Does Not Confirm CutOff 150ng/mL [facility] Comment: Interpretive Data This test detects the presence or absence of drug compounds using LC Tandem mass spectrometry. While this test is highly specific, false positive and false negative results may occur in very rare circumstances. Contact the laboratory for consultation, if needed. Performance characteristics were determined by the [facility] in a manner consistent with CLIA requirement and has not been cleared or approved by the U.S. Food and Drug Administration. Current interpretive data was last revised on 2020. Urine 05/21/2024 5:34 PM WELDING ROBOT OPERATOR 05/21/2024 5:46 PM WELDING ROBOT OPERATOR Marcus Amaya MD LAB URINE ORDERABLES F inal Result Performing Organization Address [facility] Co de Phone Number [facility] [place] [address] * (ABNORMAL) Urinalysis, microscopic only (05/21/2024 5:34 PM WELDING ROBOT OPERATOR) WBC, ur 0-5 0 - 5 /HPF RBC, ur 0-2 0 - 2 /HPF [facility] Epithelial cells, squamous, ur 1-5 0 - 5 /HPF [facility] Bacteria, ur Trace(A) [facility] Mucous, ur Present(A) [facility] Hyaline casts, ur 11-20(A) 0 - 10 /LPF [facility] Urine 05/21/2024 5:34 PM WELDING ROBOT OPERATOR 05/21/2024 5:39 PM WELDING ROBOT OPERATOR Marcus Amaya MD LAB URINE ORDERABLES F inal Result Performing Organization Address [facility] Co de Phone Number [facility] [place] [address] * Sepsis Lactate w/ Reflex (05/21/2024 4:33 PM WELDING ROBOT OPERATOR) Sepsis Lactate 1.9 0.7 - 2.0 mmol/L Blood 05/21/2024 4:33 PM WELDING ROBOT OPERATOR 05/21/2024 4:44 PM WELDING ROBOT OPERATOR Marcus Amaya MD LAB BLOOD ORDERABLES F inal Result Performing Organization Address [facility] Co de Phone Number [facility] [place] [address] * eGFR (05/21/2024 3:41 PM WELDING ROBOT OPERATOR) eGFR 70 >=60 mL/min/1. 73 m2 Comment: Interpretive Data Reference Interval Normal ?>/= 90 mL/min/1.73m2 Mildly decreased* ? 60 - 89 mL/min/1.73m2 Mildly to moderately decreased ?45 - 59 mL/min/1.73m2 Moderately to severely decreased ??30 - 44 mL/min/1.73m2 Severely decreased ?15 - 29 mL/min/1.73m2 Kidney Failure ?< 15 ??mL/min/1.73m2 *Relative to young adult level Estimated glomerular filtration rate is determined by the 2020 CKD-EPI equation recommended by the National Kidney Foundation (A Unifying Approach to GFR Estimation: Recommendations of the NKF-ASK Task Force on Reassessing the Inclusion of Race in Diagnosing Kidney Disease, JASN 2020). The CKD-EPI equation should not be used for patients with unstable renal function and has not been validated in children and those over 70. Current interpretive data was last reviewed 2021. Blood 05/21/2024 3:41 PM WELDING ROBOT OPERATOR 05/21/2024 4:03 PM WELDING ROBOT OPERATOR us Chelle Elliott MD LAB BLOOD ORDERABLES Final Result [facility] [place] [address] * (ABNORMAL) Differential, auto (05/21/2024 3:41 PM WELDING ROBOT OPERATOR) Neutrophil abs 6.9(H) 1.5 - 6.5 K/cumm Imm gran abs 0.0 0.0 - 0.1 K/cumm [facility] Lymphocyte abs 1.5 0.8 - 3.3 K/cumm [facility] Monocyte abs 0.9(H) 0.2 - 0.8 K/cumm [facility] Eosinophil abs 0.0 0.0 - 0.5 K/cumm [facility] Basophil abs 0.0 0.0 - 0.1 K/cumm [facility] Neutrophil pct 73.5 % [facility] Comment: Interpretive Data Percent cell count reference ranges are not reported, since discordance with absolute values may lead to misinterpretation of CBC data. Current Interpretive Data was last revised on 2017. Imm gran pct 0.3 % [facility] Comment: Interpretive Data Percent cell count reference ranges are not reported, since discordance with absolute values may lead to misinterpretation of CBC data. Current Interpretive Data was last revised on 2017. Lymphocyte pct 15.7 % [facility] Comment: Interpretive Data Percent cell count reference ranges are not reported, since discordance with absolute values may lead to misinterpretation of CBC data. Current Interpretive Data was last revised on 2017. Monocyte pct 10.0 % [facility] Comment: Interpretive Data Percent cell count reference ranges are not reported, since discordance with absolute values may lead to misinterpretation of CBC data. Current Interpretive Data was last revised on 2017. Eosinophil pct 0.1 % [facility] Comment: Interpretive Data Percent cell count reference ranges are not reported, since discordance with absolute values may lead to misinterpretation of CBC data. Current Interpretive Data was last revised on 2017. Basophil pct 0.4 % [facility] Comment: Interpretive Data Percent cell count reference ranges are not reported, since discordance with absolute values may lead to misinterpretation of CBC data. Current Interpretive Data was last revised on 2017. Blood 05/21/2024 3:41 PM WELDING ROBOT OPERATOR 05/21/2024 4:06 PM WELDING ROBOT OPERATOR us Chelle Elliott MD LAB BLOOD ORDERABLES Final Result [facility] [place] [address] * CBC with auto differential (05/21/2024 3:41 PM WELDING ROBOT OPERATOR) [facility] WBC 9.4 3.8 - 9.9 K/cumm Hgb 13.9 13.0 - 17.5 g/dL [facility] Hct 40.0 38.9 - 50.3 % [facility] Plt 291 150 - 400 K/cumm [facility] MPV 9.1 9.1 - 12.3 fL [facility] RBC 4.59 4.30 - 5.80 M/cumm [facility] MCV 87.1 81.3 - 96.4 fL [facility] MCH 30.3 27.1 - 33.3 pg [facility] MCHC 34.8 32.3 - 35.7 g/dL [facility] RDW CV 13.1 11.1 - 14.9 % [facility] RDW SD 41.8 35.7 - 48.1 fL [facility] NRBC abs 0.00 0.00 - 0.01 K/cumm [facility] Blood (Blood, Venous) 05/21/2024 3:41 PM WELDING ROBOT OPERATOR 05/21/2024 4:06 PM WELDING ROBOT OPERATOR Marcus Amaya MD LAB BLOOD ORDERABLES F inal Result Performing Organization Address City/[facility] Co de Phone Number [facility] [place] [address] * Lipase (05/21/2024 3:41 PM WELDING ROBOT OPERATOR) [facility] Lipase 15 10 - 99 Units/L Blood (Blood, Venous) 05/21/2024 3:41 PM WELDING ROBOT OPERATOR 05/21/2024 4:03 PM WELDING ROBOT OPERATOR Marcus Amaya MD LAB BLOOD ORDERABLES F inal Result [facility] [place] [address] * (ABNORMAL) Comprehensive metabolic panel (05/21/2024 3:41 PM WELDING ROBOT OPERATOR) Sodium 136 135 - 145 mmol/L Potassium, pl 3.6 3.3 - 4.9 mmol/L [facility] Chloride 99 97 - 110 mmol/L [facility] CO2 22 22 - 32 mmol/L [facility] Anion gap 15 2 - 15 mmol/L [facility] BUN 22 6 - 25 mg/dL [facility] Creatinine 1.37(H) 0.80 - 1.30 mg/dL [facility] Glucose 92 70 - 199 mg/dL [facility] Comment: Interpretive Data Fasting glucose >/= 126 mg/dl is diagnostic for diabetes. ?? Fasting is defined as no caloric intake for at least 8 hours. Fasting glucose between 100 mg/dl to 125 mg/dl is diagnostic of prediabetes. In a patient with classic symptoms of hyperglycemia or hyperglycemic crisis, a random glucose >/= 200 mg/dl is diagnostic for diabetes. In the absence of unequivocal hyperglycemia, results should be confirmed by repeat testing. The classification and Diagnosis of Diabetes Diabetes Care 202; 46: S19-S40. Current interpretive data was last revised 2022. Calcium 10.3 8.5 - 10.3 mg/dL [facility] Bilirubin, total 1.5(H) 0.1 - 1.2 mg/dL [facility] Protein, pl 8.5 6.5 - 8.5 g/dL [facility] Albumin 5.1(H) 3.5 - 5.0 g/dL [facility] Alk phos 99 40 - 130 Units/L [facility] ALT 19 7 - 55 Units/L [facility] AST 21 10 - 50 Units/L [facility] Blood 05/21/2024 3:41 PM WELDING ROBOT OPERATOR 05/21/2024 4:03 PM WELDING ROBOT OPERATOR us Marcus Amaya MD LAB BLOOD ORDERABLES F inal Result [facility] Department [place] [address] * ECG 12-LEAD (05/21/2024 2:24 PM WELDING ROBOT OPERATOR) Narrative [facility] - 05/21/2024 2:24 PM WELDING ROBOT OPERATOR Huy Mack MD ? 05/21/2024 ??2:27 PM ECG 12 lead Date/Time: 05/21/2024 2:24 PM Performed by: Huy Mack MD Authorized by: Chelle Elliott MD ?? Rate: ??ECG rate: ??82 ??ECG rate assessment: normal ?? Rhythm: ??Rhythm: sinus rhythm and sinus arrhythmia ?? Ectopy: ??Ectopy: none ?? QRS: ??QRS axis: ??Normal ??QRS intervals: ??Normal Conduction: ??Conduction: normal ?? ST segments: ??ST segments: ??Normal T waves: ??T waves: inverted ?Inverted: ??V3, V4, V5, II, III and aVF Other findings: ??Other findings: LVH ?? Previous ECG: ??Previous ECG: ??Compared to current ??Date of previous ECG: ??05/19/2024 ??Comparison ECG info: ??Lateral T wave inversions more pronounced than prior Interpretation: ??Interpretation: No acute injury pattern ?? Recommended Follow-up: ??Recommended follow up: further workup in the ED ?? Procedure Note Huy Mack MD - 05/21/2024 2:24 PM CST Procedure ECG 12 lead Date/Time: 05/21/2024 2:24 PM Performed by: Huy Mack MD Authorized by: Chelle Elliott MD Rate: ECG rate: 82 ECG rate assessment: normal Rhythm: Rhythm: sinus rhythm and sinus arrhythmia Ectopy: Ectopy: none QRS: QRS axis: Normal QRS intervals: Normal Conduction: Conduction: normal ST segments: ST segments: Normal T waves: T waves: inverted Inverted: V3, V4, V5, II, III and aVF Other findings: Other findings: LVH Previous ECG: Previous ECG: Compared to current Date of previous EC05/19/2024 Comparison ECG info: Lateral T wave inversions more pronounced thanprior Interpretation: Interpretation: No acute injury pattern Recommended Follow-up: Recommended follow up: further workup in the ED Huy Mack MD 05/21/24 1420 Marcus Amaya MD ECG ORDERABLES Final Result Performing Organization Address [facility] de Phone Number [facility] * ECG 12-LEAD (05/19/2024 11:55 PM WELDING ROBOT OPERATOR) Narrative [facility] - 05/19/2024 11:55 PM WELDING ROBOT OPERATOR Deniz Huitron MD ? 05/19/2024 11:56 PM ECG 12 lead Date/Time: 05/19/2024 11:55 PM Performed by: Deniz Huitron MD Authorized by: Casandra Lock MD ?? Rate: ??ECG rate: ??85 beats per minute ??ECG rate assessment: normal ?? Rhythm: ??Rhythm: sinus rhythm and sinus arrhythmia ?? Ectopy: ??Ectopy: none ?? QRS: ??QRS axis: ??Normal ??QRS intervals: ??Normal Conduction: ??Conduction: normal ?? ST segments: ??ST segments: ??Normal T waves: ??T waves: non-specific ?? Previous ECG: ??Previous ECG: ??Compared to current ??Date of previous ECG: ??07/26/2023 ??Similarity: ??No change Interpretation: ??Interpretation: No significant change ?? Recommended Follow-up: ??Recommended follow up: further workup in the ED ?? Result [facility] Casandra Lock MD ECG ORDERABLES Final Result Performing Organization Address [facility] Co de Phone Number [facility] * XR Chest PA Lateral 2 Views (05/19/2024 10:34 PM WELDING ROBOT OPERATOR) Anatomical Region Laterality Modality Body, Chest N/A Computed Radiogr aphy 05/19/2024 10:4 3 PM WELDING ROBOT OPERATOR Impressions 05/20/2024 9:03 AM WELDING ROBOT OPERATOR Comparison is made to 07/05/2023. Thoracic aorta and left subclavian vascular stent grafts is seen. Mild atelectasis in the lung bases. ??No pleural effusion or pneumothorax. ??Heart size is normal. Dictated by: Nahid Winkler MD The radiology attending physician has personally reviewed this study, and had reviewed and/or edited this written report and agrees with it. Electronically signed by: Collins Wills M.D. Narrative 05/20/2024 9:03 AM WELDING ROBOT OPERATOR EXAMINATION: 2 view chest radiograph Procedure Note Collins Wills MD - 05/20/2024 EXAMINATION: 2 view chest radiograph IMPRESSION: Comparison is made to 07/05/2023. Thoracic aorta and left subclavian vascular stent grafts is seen. Mild atelectasis in the lung bases. No pleural effusion or pneumothorax. Heart size is normal. Dictated by: Nahid Winkler MD The radiology attending physician has personally reviewed this study, and had reviewed and/or edited this written report and agrees with it. Electronically signed by: Collins Wills M.D. Andrew Alcala MD IMG XR PROCEDURES Final Result * CTA Chest Abdomen Pelvis (05/19/2024 10:20 PM WELDING ROBOT OPERATOR) Anatomical Region Laterality Modality Body N/A Computed Tomogra phy 05/19/2024 10:5 1 PM WELDING ROBOT OPERATOR Impressions 05/20/2024 9:06 AM WELDING ROBOT OPERATOR 1. 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 ??No acute findings in the chest, abdomen, or pelvis. 2. 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 Dictated by: Heber Cantu MD The radiology attending physician has personally reviewed this study, and had reviewed and/or edited this written report and agrees with it. Electronically signed by: Collins Wills M.D. Narrative 05/20/2024 9:06 AM WELDING ROBOT OPERATOR EXAMINATION: ??CT ANGIOGRAPHY OF THE CHEST, ABDOMEN AND PELVIS WITH AND WITHOUT CONTRAST HISTORY: Aortic dissection post endovascular repair presenting with chest, abdominal, and back pain and hypertension. TECHNIQUE: CT angiography of the chest, abdomen and pelvis was performed prior to and following the uneventful intravenous administration of 95 ml Optiray-350 using the post-endoluminal stent graft protocol. Vascular 3D images were generated on a dedicated workstation and also reviewed. COMPARISON: 03/07/2024 FINDINGS: VASCULAR FINDINGS: Ascending thoracic aorta is normal in caliber. ??Again seen are postsurgical changes of thoracic endovascular aortic repair with proximal attachment site just distal to the left common carotid artery origin, and distal attachment site in the infrarenal abdominal aorta just above the origin of the inferior mesenteric artery. ??There is a patent left subclavian artery stent. ??There is persistent filling of the false lumen at the level of the diaphragmatic hiatus, similar to prior examination. 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 The celiac artery arises from the false lumen and is patent.. ??The superior mesenteric and renal arteries arise from the fenestrated stent graft and are patent.. ??Residual dissection flap extends into the proximal left common iliac artery, unchanged compared to prior. 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 NON-VASCULAR FINDINGS: Imaged thyroid gland is normal. ??Heart size is normal without pericardial effusion. ??Main pulmonary artery is normal in caliber. No central pulmonary embolism. ??No thoracic lymphadenopathy. ??Central airways are patent. No focal consolidation, pleural effusion, or pneumothorax. ??No suspicious pulmonary nodule. Unchanged 1.9 cm hepatic segment 8 hemangioma. ??No suspicious focal liver lesion. ??No biliary ductal dilation. ??High density material noted in the gallbladder which likely represents vicarious excretion of contrast versus sludge. ??No gallbladder wall thickening or pericholecystic fluid. ??Changes of old granulomatous disease in the spleen. ??Pancreas and adrenal glands are normal. ??Unchanged right kidney inferior pole cyst. ??Kidneys otherwise enhance symmetrically without hydronephrosis. ??Nonobstructing right renal calculi. Excreted contrast noted within the renal collecting system and urinary bladder on the noncontrast images. ??Prostate gland is present. No abdominal or pelvic lymphadenopathy. The stomach is normal. ??The small and large bowel are normal in caliber without evidence of obstruction or wall thickening. ??No pneumoperitoneum or free intraperitoneal fluid. No suspicious osseous lesions. ??No acute fracture. Procedure Note Collins Wills MD - 05/20/2024 EXAMINATION: CT ANGIOGRAPHY OF THE CHEST, ABDOMEN AND PELVIS WITH AND WITHOUT CONTRAST HISTORY: Aortic dissection post endovascular repair presenting with chest, abdominal, and back pain and hypertension. TECHNIQUE: CT angiography of the chest, abdomen and pelvis was performed prior to and following the uneventful intravenous administration of 95 ml Optiray-350 using the post-endoluminal stent graft protocol. Vascular 3D images were generated on a dedicated workstation and also reviewed. COMPARISON: 03/07/2024 FINDINGS: VASCULAR FINDINGS: Ascending thoracic aorta is normal in caliber. Again seen are postsurgical changes of thoracic endovascular aortic repair with proximal attachment site just distal to the left common carotid artery origin, and distal attachment site in the infrarenal abdominal aorta just above the origin of the inferior mesenteric artery. There is a patent left subclavian artery stent. There is persistent filling of the false lumen at the level of the diaphragmatic hiatus, similar to prior examination. 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 The celiac artery arises from the false lumen and is patent.. The superior mesenteric and renal arteries arise from the fenestrated stent graft and are patent.. Residual dissection flap extends into the proximal left common iliac artery, unchanged compared to prior. 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 NON-VASCULAR FINDINGS: Imaged thyroid gland is normal. Heart size is normal without pericardial effusion. Main pulmonary artery is normal in caliber. No central pulmonary embolism. No thoracic lymphadenopathy. Central airways are patent. No focal consolidation, pleural effusion, or pneumothorax. No suspicious pulmonary nodule. Unchanged 1.9 cm hepatic segment 8 hemangioma. No suspicious focal liver lesion. No biliary ductal dilation. High density material noted in the gallbladder which likely represents vicarious excretion of contrast versus sludge. No gallbladder wall thickening or pericholecystic fluid. Changes of old granulomatous disease in the spleen. Pancreas and adrenal glands are normal. Unchanged right kidney inferior pole cyst. Kidneys otherwise enhance symmetrically without hydronephrosis. Nonobstructing right renal calculi. Excreted contrast noted within the renal collecting system and urinary bladder on the noncontrast images. Prostate gland is present. No abdominal or pelvic lymphadenopathy. The stomach is normal. The small and large bowel are normal in caliber without evidence of obstruction or wall thickening. No pneumoperitoneum or free intraperitoneal fluid. No suspicious osseous lesions. No acute fracture. IMPRESSION: 1. 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 No acute findings in the chest, abdomen, or pelvis. 2. 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 Dictated by: Heber Cantu MD The radiology attending physician has personally reviewed this study, and had reviewed and/or edited this written report and agrees with it. Electronically signed by: Collins iWlls M.D. Cristobal Waldrop MD IMG CT PROCEDURES F inal Result * Troponin I high-sensitivity series (baseline, 2hr, 4hr, 6hr) (05/19/2024 9:12 PM WELDING ROBOT OPERATOR) Pathologist [facility] Trop I hs 4 <=35 ng/L Comment: Interpretive Data For further hscTnI resources including the diagnostic algorithm and an aid in interpretation, copy and paste this link: [email or web address] Current Interpretive Data last revised 2019. Blood 05/19/2024 9:12 PM WELDING ROBOT OPERATOR 05/19/2024 9:28 PM WELDING ROBOT OPERATOR Cristobal Waldrpo MD LAB BLOOD ORDERABLE S Final Result [facility] Department [place] [address] * eGFR (05/19/2024 9:12 PM WELDING ROBOT OPERATOR) eGFR 85 >=60 mL/min/1. 73 m2 Comment: Interpretive Data Reference Interval Normal ?>/= 90 mL/min/1.73m2 Mildly decreased* ? 60 - 89 mL/min/1.73m2 Mildly to moderately decreased ?45 - 59 mL/min/1.73m2 Moderately to severely decreased ??30 - 44 mL/min/1.73m2 Severely decreased ?15 - 29 mL/min/1.73m2 Kidney Failure ?< 15 ??mL/min/1.73m2 *Relative to young adult level Estimated glomerular filtration rate is determined by the 2020 CKD-EPI equation recommended by the National Kidney [employer] (A Unifying Approach to GFR Estimation: Recommendations of the NKF-ASK Task Force on Reassessing the Inclusion of Race in Diagnosing Kidney Disease, JASN 2020). The CKD-EPI equation should not be used for patients with unstable renal function and has not been validated in children and those over 70. Current interpretive data was last reviewed 2021. Blood 05/19/2024 9:12 PM WELDING ROBOT OPERATOR 05/19/2024 9:28 PM WELDING ROBOT OPERATOR us Cristobal Waldrop MD LAB BLOOD ORDERABLE S Final Result [facility] Department [place] [address] * (ABNORMAL) Differential, auto (05/19/2024 9:12 PM WELDING ROBOT OPERATOR) Neutrophil abs 7.6(H) 1.5 - 6.5 K/cumm Imm gran abs 0.1 0.0 - 0.1 K/cumm [facility] Lymphocyte abs 0.9 0.8 - 3.3 K/cumm [facility] Monocyte abs 0.5 0.2 - 0.8 K/cumm [facility] Eosinophil abs 0.0 0.0 - 0.5 K/cumm [facility] Basophil abs 0.0 0.0 - 0.1 K/cumm [facility] Neutrophil pct 84.3 % [facility] Comment: Interpretive Data Percent cell count reference ranges are not reported, since discordance with absolute values may lead to misinterpretation of CBC data. Current Interpretive Data was last revised on 2017. Imm gran pct 0.7 % [facility] Comment: Interpretive Data Percent cell count reference ranges are not reported, since discordance with absolute values may lead to misinterpretation of CBC data. Current Interpretive Data was last revised on 2017. Lymphocyte pct 9.4 % [facility] Comment: Interpretive Data Percent cell count reference ranges are not reported, since discordance with absolute values may lead to misinterpretation of CBC data. Current Interpretive Data was last revised on 2017. Monocyte pct 5.3 % [facility] Comment: Interpretive Data Percent cell count reference ranges are not reported, since discordance with absolute values may lead to misinterpretation of CBC data. Current Interpretive Data was last revised on 2017. Eosinophil pct 0.1 % [facility] Comment: Interpretive Data Percent cell count reference ranges are not reported, since discordance with absolute values may lead to misinterpretation of CBC data. Current Interpretive Data was last revised on 2017. Basophil pct 0.2 % [facility] Comment: Interpretive Data Percent cell count reference ranges are not reported, since discordance with absolute values may lead to misinterpretation of CBC data. Current Interpretive Data was last revised on 2017. Blood 05/19/2024 9:12 PM WELDING ROBOT OPERATOR 05/19/2024 9:28 PM WELDING ROBOT OPERATOR us Cristobal Waldrop MD LAB BLOOD ORDERABLE S Final Result [facility] Department [place] [address] * CBC with auto differential (05/19/2024 9:12 PM WELDING ROBOT OPERATOR) WBC 9.0 3.8 - 9.9 K/cumm Hgb 13.7 13.0 - 17.5 g/dL [facility] Hct 39.7 38.9 - 50.3 % [facility] Plt 293 150 - 400 K/cumm [facility] MPV 9.2 9.1 - 12.3 fL [facility] RBC 4.53 4.30 - 5.80 M/cumm [facility] MCV 87.6 81.3 - 96.4 fL [facility] MCH 30.2 27.1 - 33.3 pg [facility] MCHC 34.5 32.3 - 35.7 g/dL [facility] RDW CV 13.2 11.1 - 14.9 % [facility] RDW SD 42.5 35.7 - 48.1 fL [facility] NRBC abs 0.00 0.00 - 0.01 K/cumm [facility] Blood 05/19/2024 9:12 PM WELDING ROBOT OPERATOR 05/19/2024 9:28 PM WELDING ROBOT OPERATOR Cristobal Waldrop MD LAB BLOOD ORDERABLE S Final Result [facility] Department [place] [employer] [place] [address] * aPTT (05/19/2024 9:12 PM WELDING ROBOT OPERATOR) aPTT 34 28 - 38 sec Comment: Interpretive Data Heparin therapeutic range: 66.0 - 100.0 seconds. Range based on correlation with therapeutic heparin activity range of 0.3 - 0.7 Units/mL. Current interpretive data was last revised on 2023. Blood 05/19/2024 9:12 PM WELDING ROBOT OPERATOR 05/19/2024 9:32 PM WELDING ROBOT OPERATOR us Cristobal Waldrop MD LAB BLOOD ORDERABLE S Final Result [facility] [place] [address] * (ABNORMAL) Protime-INR (05/19/2024 9:12 PM WELDING ROBOT OPERATOR) Pathologist [facility] PT 14.2(H) 9.7 - 13.0 sec INR 1.31(H) 0.90 - 1.20 [facility] Comment: Interpretive data Oral anticoagulant therapeutic ranges: Venous thromboembolism prophylaxis or treatment: 2.0-3.0 CARDIOLOGY Standard range: 2.0-3.0 High-intensity range: 2.5-3.5 Refer to indication-specific guidelines for appropriate target ranges for prosthetic heart valve replacement. Current interpretive data was last revised on 2019. Blood 05/19/2024 9:12 PM WELDING ROBOT OPERATOR 05/19/2024 9:32 PM WELDING ROBOT OPERATOR Cristobal Waldrop MD LAB BLOOD ORDERABLE S Final Result Performing Organization Address [facility] Co de Phone Number [facility] Department [place] [employer] [place] [address] * Type and screen (05/19/2024 9:12 PM WELDING ROBOT OPERATOR) Pathologist [facility] Ellen, indirect Negative ABO Rh A Positive [facility] Blood 05/19/2024 9:12 PM WELDING ROBOT OPERATOR 05/19/2024 9:22 PM WELDING ROBOT OPERATOR Narrative [facility] - 05/19/2024 10:07 PM WELDING ROBOT OPERATOR Has the patient had Daratumumab or Isatuximab in the past 6 months?->Unknown Cristobal Waldrop MD LAB BLOOD BANK TEST ORDERABLES Final Result Performing Organization Address City/[facility] Crest/ZIP Co de Phone Number [facility] [place] [address] * (ABNORMAL) Comprehensive metabolic panel (05/19/2024 9:12 PM WELDING ROBOT OPERATOR) Pathologist [facility] Sodium 139 135 - 145 mmol/L Potassium, pl 3.9 3.3 - 4.9 mmol/L [facility] Chloride 100 97 - 110 mmol/L [facility] CO2 21(L) 22 - 32 mmol/L [facility] Anion gap 18(H) 2 - 15 mmol/L [facility] BUN 18 6 - 25 mg/dL [facility] Creatinine 1.17 0.80 - 1.30 mg/dL [facility] Glucose 108 70 - 199 mg/dL [facility] Comment: Interpretive Data Fasting glucose >/= 126 mg/dl is diagnostic for diabetes. ?? Fasting is defined as no caloric intake for at least 8 hours. Fasting glucose between 100 mg/dl to 125 mg/dl is diagnostic of prediabetes. In a patient with classic symptoms of hyperglycemia or hyperglycemic crisis, a random glucose >/= 200 mg/dl is diagnostic for diabetes. In the absence of unequivocal hyperglycemia, results should be confirmed by repeat testing. The classification and Diagnosis of Diabetes Diabetes Care 202; 46: S19-S40. Current interpretive data was last revised 2022. Calcium 10.2 8.5 - 10.3 mg/dL [facility] Bilirubin, total 1.2 0.1 - 1.2 mg/dL [facility] Protein, pl 8.7(H) 6.5 - 8.5 g/dL [facility] Albumin 5.1(H) 3.5 - 5.0 g/dL [facility] Alk phos 105 40 - 130 Units/L [facility] ALT 23 7 - 55 Units/L [facility] AST 18 10 - 50 Units/L [facility] Blood 05/19/2024 9:12 PM WELDING ROBOT OPERATOR 05/19/2024 9:28 PM WELDING ROBOT OPERATOR Cristobal Waldrop MD LAB BLOOD ORDERABLE S Final Result [facility] Department [place] [address] * POC ISTAT (03/07/2024 12:09 PM CDT) Creatinine, POC, bld 1.1 0.6 - 1.3 mg/dL POC Device Number [id number] [facility] POC Performer [id number] [facility] Blood 03/07/2024 12:0 9 PM CDT 03/07/2024 12:09 PM CDT Leo Manzano MD LAB BLOOD ORDERABLES Final Result [facility] [id number] [facility]. Department [place] [address] * CTA Chest Abdomen Pelvis (03/07/2024 12:05 PM CDT) Anatomical Region Laterality Modality Body N/A Computed Tomogra phy 03/07/2024 4:12 PM CDT Impressions 03/07/2024 4:33 PM CDT IMPRESSION: 1. Unchanged thoracoabdominal aortic dissection status post endovascular aortic stent graft repair with unchanged persistent filling of the false lumen at the level of the graft and the false lumen supplies the celiac axis. 2. Unchanged 6 mm left common femoral artery focal projection, possibly secondary to prior vascular access. Dictated by: Tamiko Mixon MD The radiology attending physician has personally reviewed this study, and had reviewed and/or edited this written report and agrees with it. Electronically signed by: Ag Davila M.D., Ph.D Narrative 03/07/2024 4:33 PM CDT EXAMINATION: ??CT ANGIOGRAPHY OF THE ABDOMEN AND PELVIS WITH AND WITHOUT CONTRAST HISTORY: Aortic dissection status post endovascular repair. TECHNIQUE: CT angiography of the abdomen and pelvis was performed prior to and following the uneventful intravenous administration of 90 ml Optiray-350 using the post-endoluminal stent graft protocol. Vascular 3D images were generated on a dedicated workstation and also reviewed. COMPARISON: 09/06/2023 FINDINGS: VASCULAR FINDINGS: Postsurgical changes of thoracic endovascular aortic repair with proximal attachment site just distal to the left, the carotid origin. Left subclavian stent present and patent. ??Filling of the false lumen of the aortic dissection within the distal thoracic aorta just above the diaphragmatic hiatus, unchanged. ??Aneurysmal dilation of the infrarenal abdominal aorta measuring 4.7 x 4.5 cm, not significantly changed from prior. The celiac axis arises from the false lumen. ??The superior mesenteric and renal arteries arises from the stented portion of the aorta. The distal attachment site of the stent graft is the infrarenal abdominal aorta just above the origin of the inferior mesenteric artery which remains patent. ??The dissection flap extends into the left proximal common iliac artery. Unchanged 6 mm left common femoral artery focal projection, possibly secondary to prior vascular access. NON-VASCULAR FINDINGS: No suspicious pulmonary nodule. ??No pleural effusion, pneumothorax or pulmonary consolidation. ??No supraclavicular, mediastinal, or axillary lymphadenopathy. ??Heart is normal in size without pericardial effusion. Cavernous hemangioma measuring 2 cm in segments 4A is unchanged when compared to 08/23/2023. ??No suspicious hepatic lesion. ??Gallbladder normal. ??Spleen, pancreas, and adrenal glands are normal. Kidneys enhance symmetrically without hydronephrosis or nephrolithiasis. ??Bladder is normal. ?? Colonic diverticulosis without diverticulitis. ??Appendix is normal. Distal esophagus and stomach are normal. No abdominal or pelvic lymphadenopathy. ??No suspicious osseous lesion. Procedure Note Ag Davila MD PhD - 03/07/2024 EXAMINATION: CT ANGIOGRAPHY OF THE ABDOMEN AND PELVIS WITH AND WITHOUT CONTRAST HISTORY: Aortic dissection status post endovascular repair. TECHNIQUE: CT angiography of the abdomen and pelvis was performed prior to and following the uneventful intravenous administration of 90 ml Optiray-350 using the post-endoluminal stent graft protocol. Vascular 3D images were generated on a dedicated workstation and also reviewed. COMPARISON: 09/06/2023 FINDINGS: VASCULAR FINDINGS: Postsurgical changes of thoracic endovascular aortic repair with proximal attachment site just distal to the left, the carotid origin. Left subclavian stent present and patent. Filling of the false lumen of the aortic dissection within the distal thoracic aorta just above the diaphragmatic hiatus, unchanged. Aneurysmal dilation of the infrarenal abdominal aorta measuring 4.7 x 4.5 cm, not significantly changed from prior. The celiac axis arises from the false lumen. The superior mesenteric and renal arteries arises from the stented portion of the aorta. The distal attachment site of the stent graft is the infrarenal abdominal aorta just above the origin of the inferior mesenteric artery which remains patent. The dissection flap extends into the left proximal common iliac artery. Unchanged 6 mm left common femoral artery focal projection, possibly secondary to prior vascular access. NON-VASCULAR FINDINGS: No suspicious pulmonary nodule. No pleural effusion, pneumothorax or pulmonary consolidation. No supraclavicular, mediastinal, or axillary lymphadenopathy. Heart is normal in size without pericardial effusion. Cavernous hemangioma measuring 2 cm in segments 4A is unchanged when compared to 08/23/2023. No suspicious hepatic lesion. Gallbladder normal. Spleen, pancreas, and adrenal glands are normal. Kidneys enhance symmetrically without hydronephrosis or nephrolithiasis. Bladder is normal. Colonic diverticulosis without diverticulitis. Appendix is normal. Distal esophagus and stomach are normal. No abdominal or pelvic lymphadenopathy. No suspicious osseous lesion. IMPRESSION: IMPRESSION: 1. Unchanged thoracoabdominal aortic dissection status post endovascular aortic stent graft repair with unchanged persistent filling of the false lumen at the level of the graft and the false lumen supplies the celiac axis. 2. Unchanged 6 mm left common femoral artery focal projection, possibly secondary to prior vascular access. Dictated by: Tamiko Mixon MD The radiology attending physician has personally reviewed this study, and had reviewed and/or edited this written report and agrees with it. Electronically signed by: Ag Davila M.D., Ph.D Leo Manzano MD IMG CT PROCEDURES Final Re sult * Imaging SI Joint Injection Bilateral ([id number]) (02/28/2024 11:27 AM CDT) Narrative [facility] - 02/28/2024 11:28 AM CDT The images from this study are not interpreted by Radiology. ??Please refer to the physician's procedure / OR operative note. Adrianne Adams MD PhD IMG PAIN MGMT PROCEDURE S Final Result [facility] * Hepatitis C antibody Blood (09/06/2023 11:15 AM CDT) Hep C Ab Nonreactive Nonreactive Comment:Antibodies to HCV no t detected. Does NOT exclude the possibility of recent exposure to HCV. Current interpretive data was last revised on 22 Blood 09/06/2023 11:1 5 AM CDT 09/06/2023 11:34 AM CDT us Clyde Nelson MD LAB MICROBIOLOGY - GENERAL SHAUNA LOPEZ Edited Result - Final [facility] Department [place] [address] from Last 3 Months or Most Recently Relevant to Health Maintenance Insurance [employer] [facility] [employer] [facility] [facility] Advance Directives For more information, please contact: [phone] * Full Code (Latest Code Status on File) Date Activated Date Inactivated Comments 05/23/2024 8:06 PM 05/29/2024 2:36 PM * Full Code Date Activated Date Inactivated Comments 10/02/2023 7:30 PM 10/04/2023 6:37 PM * Full Code Date Activated Date Inactivated Comments 09/27/2023 8:08 PM 09/28/2023 5:13 AM * Full Code Date Activated Date Inactivated Comments 09/06/2023 7:42 PM 09/09/2023 7:09 PM * Full Code Date Activated Date Inactivated Comments 08/23/2023 4:49 PM 08/24/2023 10:17 PM Healthcare Agents on File Name Relationship Healthcare Agent Relationshi p Communication Meron Tucker Health Care Agent Care Teams Loss Prevention Leader Relationship Specialty Start Date End Date Carl Strickland MD [address] [place] [address] [address] [place] [address] PCP - General Internal Medicine 06/06/23 Leo Manzano MD [id number] [place] [address] Surgeon Vascular Surgery 05/16/23
--- OUTSIDE RECORDS SUMMARY | 2024-05-30 05:34 | XMS_ITS | Referral Summary ---
Author Organization [facility] Address [address] [place] [address] Care Team Providers Care Algebra Teacher Name Role Phone Leo Manzano MD Unavailable [phone] Carl Strickland MD Primary Care Provider Encounters Date Type Department Care Team Description 05/23/2024 7:45 PM [facility] - 05/29/2024 10:36 AM [facility] Hospital Encounter [address] [phone] Gonzalez Lamar DO Ohman, John Westley, MD Abdominal pain (Primary Dx) Discharge Disposition: Discharge to home or self care 05/25/[address] [phone] Essie Singh RN 05/21/2024 4:17 PM [facility]AD[facility] - 05/21/2024 8:27 PM [facility] Emergency [facility] Emergency Department [address] [place] [phone] Marcus Amaya MD Nausea and vomiting, unspecified vomiting type (Primary Dx) Discharge Disposition: Discharge to home or self care 05/19/2024 9:40 PM [facility] ALL TRADES - 05/20/2024 1:34 AM [facility] ALL TRADES Emergency [facility] Emergency Department [address] [facility] [place] [address] Casandra Lock MD Renz, Nicholas Robert, MD Abdominal pain (Primary Dx); Chronic bilateral low back pain without sciatica; Abdominal aortic aneurysm dissection (HCC) Discharge Disposition: Discharge to home or self care 05/16/2024 2:39 PM [facility] ALL TRADES - 05/16/2024 11:59 PM [facility] ALL [facility]ES Hospital Encounter [facility] [place] at the [facility] [address] [facility] [address] [place] [address] Adrianne Adams MD PhD Sacroiliitis (HCC) (Primary Dx) Discharge Disposition: Discharge to home or self care 04/24/2024 Orders Only [facility] Nephrology [address] [place] [address] 5th [place] [address] [place] [phone] Miguel Dominguez MD ANGI (acute kidney injury) (HCC) (Primary Dx); Primary hypertension; Anemia, unspecified type; Screening for hematuria or proteinuria 03/07/2024 11:53 AM CDT - 03/07/2024 11:59 PM CDT Hospital Encounter [facility] [address] [place] [address] Dissection of thoracoabdominal aorta (CMS/HCC) (HCC) Discharge Disposition: Discharge to home or self care 03/07/2024 3:00 PM CDT Office Visit [facility] Vascular Surgery [facility] Medical Office Building [address] [place] [phone] Leo Manzano MD Dissection of abdominal aorta (CMS/HCC) (HCC); Aftercare following surgery of the circulatory system 02/28/2024 9:44 AM CDT - 02/28/2024 11:59 PM CDT Hospital Encounter [facility] [place] at the [place] [address] [facility] [address] [place] [address] Hilaria Blankenship MD PhD Adrianne Adams MD PhD Sacroiliitis (HCC) (Primary Dx) Discharge Disposition: Discharge to home or self care from Last 3 Months Allergies Active Allergy Reactions Criticality Noted Date Comments Amoxicillin Hives Medium 05/01/2023 Lisinopril Angioedema High 07/01/2023 Medications aspirin 81 mg chewable tablet Take 1 tablet (81 mg total) by mouth daily 30 tablet 11 Active ondansetron ODT (ZOFRAN-ODT) 4 mg disintegrating tablet Take 1 tablet (4 mg total) by mouth every 8 (eight) hours as needed for nausea or vomiting 10 tablet 023 Active senna-docusate (PERICOLACE) 8.6-50 mg Take 2 tablets by mouth 2 (two) times a day To prevent constipation 40 tablet Active amLODIPine (NORVASC) 10 mg tablet Take 1 tablet (10 mg total) by mouth daily 30 tablet 11 024 2024 Active hydrALAZINE (APRESOLINE) 50 mg tablet Take 1 tablet (50 mg total) by mouth 3 (three) times a day 90 tablet 11 024 2024 Active dicyclomine (BENTYL) 20 mg [...] (Bladder spasms/discomfo rt) 30 tablet 3 Active labetaloL (NORMODYNE,TRANDA TE) 200 mg tablet [...] pain profile is the same since his [place] one, but could consider repeating if new [...] line Assessment & Plan (06/24/2023 12:04 PM J[facility] OF ALL TRADES): - CT without discitis or osteomyelitis on 06/13 - MRI 06/13 also without discitis or osteomyelitis - no narcotic pain medications are required from vascular surgery perspective - Consult pain management team Pseudoaneurysm following procedure ([facility]) Assessment & Plan (06/24/2023 10:40 AM J[facility] ALL TRADES): - s/p vascular access - Q4 N/V checks - no current surgical intervention - no activity restrictions, OOB/ ambulate Infrarenal abdominal aortic aneurysm, without ru pture 06/13/2023 Assessment & Plan (06/24/2023 10:41 AM J[facility] ALL TRADES): s/p TEVAR on 06/05/23 (graft terminates above celiac take off) 06/11 discharged home; 06/13 Re admitted for worsening back pain, HTN, and subjective fever/chills. - CT 06/13 shows no change in aneurysm, no stent migration, no increase in false lumen perfusion - non operative Polysubstance abuse ([facility]) 06/10/2023 Moderate malnutrition ([facility]) 06/09/2023 Dissection of abdominal aorta ([facility]) 06/03/19 24 Urinary retention 05/16/2023 Assessment & Plan (05/16/2023 10:44 AM JACK OF ALL TRADES): Patient with urinary retention requiring straight cath X1 05/15, now voiding without any issues. - Continue Flomax. - Patient requests urology follow up, referral placed. Epistaxis 05/13/2023 Assessment & Plan (05/13/2023 12:42 PM JACK OF ALL TRADES): Significant nose bleed in the OR requiring intra-op ENT c/s. DL performed, no other sources of bleeding visualized. ACT post protamine 149. - ENT following - ocean spray tid - no other s/s bleeding Pneumonia 05/13/2023 Assessment & Plan (05/13/2023 12:43 PM JACK OF ALL TRADES): Tracheal aspirate 05/05 with Haemophilus Inf - susana(05/04 - 05/10), linezolid (05/04-05/06) HTN (hypertension) 05/13/2023 Assessment & Plan (05/28/2024 8:41 AM JACK OF ALL TRADES): BP well controlled. - continue home amlodipine [...] needed Assessment & Plan (06/24/2023 10:41 AM JACK OF ALL TRADES): Difficult to control Htn. Dr. Abarca following - Continue amlodipine, lisinopril, coreg, hydralazine - SBP goal 120-140 - VS q 4 hrs and prn Assessment & Plan (06/21/2023 7:57 AM JACK OF ALL TRADES): BP stable at present. Recommend discontinuation of the diltiazem and continue amlodipine (as opposed to giving two calcium channel blockers) Assessment & Plan (06/20/2023 8:33 PM JACK OF ALL TRADES): BP improving. Recommend continue medications and follow up bp, except recommend discontinuation of the diltiazem as he is already on a calcium channel louie, amlodipine Assessment & Plan (06/18/2023 7:59 AM JACK OF ALL TRADES): Patient with continued hypertension. Blood pressure in the right arm levels are improved now in the 130s and 140s. Recommend consideration for adjustment of medications as follows. 1. Add spironolactone 25 mg a day 2. Consider adding clonidine 0.1 mg twice a day Assessment & Plan (06/11/2023 7:50 AM JACK OF ALL TRADES): Patient hypertensive. Recommend resuming hydralazine 25 mg 3 times a day. Continue the amlodipine and carvedilol. Follow-up blood pressure. The patient should have follow-up blood pressure when he leaves the hospital as well. Assessment & Plan (06/10/2023 3:48 PM JACK OF ALL TRADES): Goal systolic BP 140-180 for one month [...] status Assessment & Plan (06/09/2023 10:54 AM JACK OF ALL TRADES): Blood pressure well controlled at present. Medicines are being adjusted. Currently on carvedilol and hydralazine. A want to transition to amlodipine 5 mg a day to wean hydralazine, as tolerated, as 3 times a day medication can be difficult long-term Assessment & Plan (05/13/2023 12:49 PM JACK OF ALL TRADES): Hx of uncontrolled HTN, non-compliant to medications. [...] time Assessment & Plan (06/11/2023 7:50 AM JACK OF ALL TRADES): Clinically stable. Renal function stable. Blood pressure improved We will recommend genetic testing as an outpatient Assessment & Plan (06/10/2023 3:48 PM JACK OF ALL TRADES): Presents with abdominal pain and concern for progression of dissection on CT - 06/05/23: OR s/p TEVAR extension and dissection stent placement - BP management per HTN - pain control - Q4 NV checks, Q2 VS - lovenox DVT ppx - He will f/u with Dr. Abarca as outpatient for genetics testing. Assessment & Plan (06/09/2023 10:54 AM JACK OF ALL TRADES): Clinically stable. Renal function stable. 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 No concern for mesenteric ischemia. - c/w impulse control - regular diet - transitioned to oral anti-hypertensive - pain management following. 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 Dilaudid discontinued 05/28. Pain signed off. Assessment & Plan (10/03/2023 2:00 PM CDT): Follows with Dr Rima Aly antihypertensives Assessment & Plan (06/18/2023 8:00 AM JACK OF ALL TRADES): Aortic imaging stable on recent CT scan. Continue blood pressure control. Assessment & Plan (05/02/2023 2:02 PM JACK OF ALL TRADES): 32y/o male with uncontrolled HTN who presented to an OSH ER with acute onset shortness of breath, chest pain and back pain. 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 He was transferred to [facility] for further evaluation and treatment. Here, [...] All feel these findings not to be player services representative of a type a dissection, therefore [...] findings of HFrEF with LVEF of 41%. Social History Tobacco Use Types Packs/Day Years Used Date Smoking Tobacco: Never Smokeless Tobacco: Never Tobacco Cessation:Counseling Given: Not Answered Alcohol Use Standard Drinks/Week Comments Not Currently 0 (1 standard drink = 0.6 oz pur e alcohol) [facility] Utilities Answer Date Recorded In the past 12 months has th e electric, gas, oil, or water company threatened to shut off services in your [...] week 05/24/2024 How often do you attend chur ch or yazdanism services? Never 05/24/2024 Do you belong to any clubs o r organizations such as gnosticism groups, unions, fraternal or athletic groups, or [...] money to buy more. Never true 05/24/20 24 Within the past 12 months, t he [...] or rent on time? Patient declined 10/02/19 24 In the last 12 months, how many places have you lived? 0 10/02/2023 In the last 12 months, was t here a time when you did not have a steady place to sleep or slept in a long-term (including now)? Patient declined 10/02/2023 Housing Stability [...] any time in the past 12 m [facility], were you homeless or living in a long-term (including now)? No 05/24/2024 Personal Safety Answer Date Recorded Have you ever been in or are you currently in a harmful physical or emotional relationship or is someone making you feel afraid or unsafe? Denies 05/23/2024 Sex and Gender Information Value Date Recorded Sex Assigned at Not on file Legal Sex Male 3:42 AM [facility] ALL TRADES Gender Identity Not on file Sexual Orientation Straight 06/12/2023 11 :43 PM [facility] ALL TRADES Last Filed Vital Signs Vital Sign Reading Time Taken Comments Blood Pressure 129/70 05/29/2024 10:10 AM [facility] ALL TRADES Pulse 67 05/29/2024 7:57 AM [facility] ALL TRADES Temperature 36.6 ??C (97.8 ??F) 05/29/2024 7:57 AM CS T Respiratory Rate 18 05/29/2024 7:57 AM [facility] ALL TRADES Oxygen Saturation 96% 05/29/2024 7:57 AM J[facility] OF ALL TRADES Inhaled Oxygen Concentration - - Weight 99.8 kg (220 lb) 05/23/2024 9:15 PM [facility] ALL TRADES Height 175.3 cm (5' 9 ) 05/23/2024 9:15 PM [facility]ACK OF ALL TRADES Body Mass Index 32.49 05/23/2024 9:15 PM JACK OF ALL TRADES Plan of Treatment Not on file Goals Goal Patient Goal Type Associated Problems Recent Progress Patient-Stated? Author CCM Chronic Pain Care Plan Chronic Care Management No change(05/16 2:51 PM JACK OF ALL TRADES) No Rita Landa RN Note: Problem: Chronic Pain Goals: 1. Minimize further functional decline 2. Maximize quality of life 3. Control pain Strategies: - Activity/exercise program recommendation - Conservative stepwise pain medicine strategy with multi-disciplinary approach - Recommend healthy lifestyle strategies and compensatory methods as needed Medical Devices Implanted Type Area Animal Attendants And Trainers Device Identifier Shelf Expiration Date Model / Serial / Lot [employer] Stent Graft Aortic Covered Tag [id number] Eptfe Nitinol [id number] - [id number] - [id number] Implanted:Qty : 1 on 05/02/2023 by Leo Manzano MD at [facility] Graft N/A: Aorta [employer] [id number] 12/07/2025 [id number] / [id number] / [employer] Stent Graft Thoracic Side Branch Tag [id number] Eptfe Nitinol [id number] - [id number] - [id number] Implanted:Qty : 1 on 05/02/2023 by Leo Manzano MD at [facility] Stent Left: Subclavian [employer] [id number] 06/27/2025 [id number] / [id number] / [employer] Graft Stent Thorndike Tag L20cm Od37mm Thoracic Active Control [id number] - [id number] - [id number] Implanted:Qty : 1 on 06/05/2023 by Nikhil Samuel MD at [facility] Stent N/A: Descending Thoracic Aorta [employer] [id number] 04/12/2024 [id number] / [id number] / [employer] Zenith 36mm 20-30mm 16mm 180mm 9 Dissection Introducer Sheath [id number] - [id number] Implanted:Qty : 1 on 06/05/2023 by Nikhil Samuel MD at [facility] Stent N/A: Descending Thoracic Aorta [employer] [id number] 12/20/2025 [id number] / / [id number] Wiley V[employer] Device Clsr Perclose Prostyle Sut-Mediatd Closure-Repai r Sys 66029-47 - [id number] Implanted:Qty : 3 on 05/02/2023 by Leo Manzano MD at [facility] Vascular Closure Device Left: Common Femoral Artery [employer] [id number] 09/26/2024 [id number] / / [id number] Description:Same lot number [employer] Device Clsr Perclose Prostyle Sut-Mediatd Closure-Repai r Sys 55905-32 - [id number] Implanted:Qty : 1 on 06/05/2023 by Nikhil Samuel MD at [facility] Left: Groin [employer] [id number] 12/27/2024 [id number] / / [id number] [employer] Device Clsr Perclose Prostyle Sut-Mediatd Closure-Repai r Sys 70351-99 - [id number] Implanted:Qty : 1 on 06/05/2023 by Nikhil Samuel MD at [facility] Left: Groin [employer] [id number] 12/27/2024 [id number] / / [id number] [employer] Ron Contour 6fr 26cm Large Inner Lumen Low Profile Bladder Ag Taper Latex Free 180-223 - [id number] Implanted:Qty : 1 on 09/27/2023 by Marcus Glass MD at [facility] Right: Ureter [employer] Ron 05/16/2026 [id number] / / [id number] [employer] Ron Contour 6fr 26cm Large Inner Lumen Low Profile Bladder Ag Taper Latex Free 180-223 - [id number] Implanted:Qty : 1 on 10/04/2023 by Otoniel Landa MD at [facility] Right: Ureter [employer] Ron 05/16/2026 [id number] 230 / / [id number] Explanted Type Area Animal Attendants And Trainers Device Identifier Shelf Expiration Date Model / Serial / Lot [employer] Inlay Tanglewilde 6fr 28cm Pusher Fluoro Marker Atraumatic Insertion Latex Free [id number] - [id number] Implanted:Qty: 1 on 07/04/2023 by Marcus Gamboa MD at [facility] Explanted:Qty: 1 on 07/14/2023 by Stacia Su MD Stent Left: Ureter [employer] [id number] 04/14/2027 [id number] / / [id number] Procedures Procedure Name Priority Date/Time Associated Diagnosis Comments EGFR Timed 05/28/2024 3:36 AM [facility] ALL TRADES BASIC METABOLIC PANEL Timed 05/28/2024 3:36 AM [facility] ALL [facility]ADES CBC WITHOUT DIFFERENTIAL Timed 05/28/2024 3:36 AM [facility] ALL TRADES LIDOCAINE LEVEL Timed 05/28/2024 3:36 AM [facility] ALL TRADES LIDOCAINE LEVEL Timed 05/27/2024 3:29 AM [facility] ALL TRADES TYPE AND SCREEN Timed 05/27/2024 3:29 AM [facility] ALL TRADES EGFR Routine 05/26/2024 4:38 AM [facility] ALL TRADES LIDOCAINE LEVEL Timed 05/26/2024 4:38 AM [facility] ALL TRADES BASIC METABOLIC PANEL Routine 05/26/2024 4:38 AM [facility] ALL TRADES CBC WITHOUT DIFFERENTIAL Routine 05/26/2024 4:38 AM [facility] ALL TRADES EGFR Routine 05/25/2024 4:20 PM J[facility] OF ALL TRADES BASIC METABOLIC PANEL Routine 05/25/2024 4:20 PM [facility] ALL TRADES CBC WITHOUT DIFFERENTIAL Routine 05/25/2024 4:20 PM [facility] ALL TRADES LIDOCAINE LEVEL Routine 05/25/2024 4:20 PM [facility] ALL [facility]ADES CRITICAL CARE Routine 05/25/2024 8:12 AM [facility] ALL TRADES Abdominal pain POCT GLUCOSE DEVICE Routine 05/25/2024 4 :16 AM [facility] ALL TRADES POCT GLUCOSE DEVICE Routine 05/24/2024 11:36 PM [facility] ALL TRADES POCT GLUCOSE DEVICE Routine 05/24/2024 8 :50 PM [facility] ALL TRADES CRITICAL CARE Routine 05/24/2024 8:47 PM [facility] ALL TRADES Abdominal pain EGFR Routine 05/24/2024 5:43 PM [facility] ALL TRADES DIFFERENTIAL AUTO Routine 05/24/2024 5:4 3 PM [facility] ALL TRADES LACTATE, WHOLE BLOOD STAT 05/24/2024 5:43 PM [facility] ALL TRADES AMYLASE Routine 05/24/2024 5:43 PM [facility] ALL [facility]ES PHOSPHORUS Routine 05/24/2024 5:43 PM [facility] ALL TRADES MAGNESIUM Routine 05/24/2024 5:43 PM [facility] ALL TRADES COMPREHENSIVE METABOLIC PANEL Routine 05/24/2024 5:43 PM [facility] ALL TRADES CBC WITH AUTO DIFFERENTIAL Routine 05/24/2024 5:43 PM [facility] ALL TRADES POCT GLUCOSE DEVICE Routine 05/24/2024 3 :52 PM [facility] ALL TRADES POCT GLUCOSE DEVICE Routine 05/24/2024 11:06 AM [facility] ALL TRADES POCT GLUCOSE DEVICE Routine 05/24/2024 7 :46 AM [facility] ALL [facility] CRITICAL CARE Routine 05/24/2024 6:15 AM [facility] ALL TRADES Abdominal pain POCT GLUCOSE DEVICE Routine 05/24/2024 3 :23 AM [facility] ALL TRADES POCT GLUCOSE DEVICE Routine 05/23/2024 11:04 PM [facility] ALL TRADES EGFR STAT 05/23/2024 8:33 PM [facility] ALL [facility]ADES DIFFERENTIAL AUTO STAT 05/23/2024 8:3 3 PM [facility] ALL TRADES PROTIME-INR STAT 05/23/2024 8:33 PM [facility] ALL TRADES APTT STAT 05/23/2024 8:33 PM [facility] ALL [facility]ADES TYPE AND SCREEN Timed 05/23/2024 8:33 PM [facility] ALL TRADES CBC WITH AUTO DIFFERENTIAL STAT 05/23/2024 8:33 PM [facility] ALL TRADES CREATINE KINASE (CK), TOTAL STAT 05/23/2024 8:33 PM [facility] ALL TRADES LACTATE STAT 05/23/2024 8:33 PM [facility] ALL TRADES CALCIUM, IONIZED STAT 05/23/2024 8:33 PM [facility] ALL [facility]ADES PHOSPHORUS STAT 05/23/2024 8:33 PM [facility] ALL [facility]ADES MAGNESIUM STAT 05/23/2024 8:33 PM [facility] COMPREHENSIVE METABOLIC PANEL STAT 05/23/2024 8:33 [address] [facility] CT BODY OUTSIDE REFERENCE Routine 05/23/2024 8:[address] [facility] CT BODY OUTSIDE CONSULT Routine 05/23/2024 8:18 PM [facility] ALL TRADES POCT GLUCOSE DEVICE Routine 05/23/2024 7 :47 PM [facility] ALL TRADES POCT RAPID HIV ANTIBODY COMMUNITY SCREENING-PAPA ELIGIBLE Routine 05/21/2024 7:35 PM [facility]ADES OXYCODONE CONFIRMATION, URINE Routine 05/21/2024 5:34 PM [facility] ALL TRADES FENTANYL CONFIRMATION, MS URINE Routine 05/21/2024 5:34 PM [facility] AMPHETAMINE, URINE, CONFIRMATION Routine 05/21/2024 5:34 PM [facility]ADES URINALYSIS, MICROSCOPIC ONLY STAT 05/21/2024 5:34 PM [facility] ALL TRADES DRUGS OF ABUSE SCREEN, URINE WITH REFLEX CONFIRMATION Routine 05/21/2024 5:34 PM [facility] ALL TRADES URINALYSIS AND REFLEX TO MICROSCOPIC STAT 05/21/2024 5:34 PM [facility] ALL [facility]ADES SEPSIS LACTATE WITH REFLEX STAT 05/21/2024 4:33 PM [facility] ALL TRADES EGFR STAT 05/21/2024 3:41 PM [facility] DIFFERENTIAL AUTO STAT 05/21/2024 3:4 1 PM [facility] LIPASE STAT 05/21/2024 3:41 PM [facility] COMPREHENSIVE METABOLIC PANEL STAT 05/21/2024 3:41 PM [facility] ALL [facility]ADES CBC WITH AUTO DIFFERENTIAL STAT 05/21/2024 3:41 PM [facility]ES ECG 12-LEAD STAT 05/21/2024 2:24 PM [facility] ECG 12-LEAD STAT 05/19/2024 11:55 PM [facility]ADES XR CHEST PA LATERAL 2 VIEWS ED 05/19/2024 10:34 PM [facility] CTA CHEST ABDOMEN PELVIS ED 05/19/2024 10:20 PM [facility] ALL TRADES EGFR STAT 05/19/2024 9:12 PM [facility] DIFFERENTIAL AUTO Timed 05/19/2024 9:1 2 PM [facility] ALL TRADES TROPONIN I HIGH-SENSITIVITY SERIES (BASELINE, 2HR, 4HR, 6HR) STAT 05/19/2024 9:12 PM [facility] ALL TRADES TYPE AND SCREEN STAT 05/19/2024 9:12 PM [facility] ALL TRADES APTT STAT 05/19/2024 9:12 PM [facility] ALL [facility]ADES PROTIME-INR STAT 05/19/2024 9:12 PM [facility] COMPREHENSIVE METABOLIC PANEL STAT 05/19/2024 9:12 PM [facility]AD[facility] CBC WITH AUTO DIFFERENTIAL Timed 05/19/2024 9:12 PM [facility] ALL [facility]ADES POC ISTAT Routine 03/07/2024 12:09 PM CDT [...] Maintenance Results * eGFR (05/28/2024 3:36 AM [facility] ALL TRADES) eGFR >90 >=60 mL/min/1. 73 m2 Comment: [...] of Race in Diagnosing Kidney Disease, JASN 202). The CKD-EPI equation should not be used for patients with unstable renal function and has not been validated in children and those over 70. Current interpretive data was last reviewed 2021. Blood 05/28/2024 3:36 AM [facility] ALL [facility]ES 05/28/2024 4:30 AM [facility]ADES Leo Manzano MD LAB BLOOD ORDERABLES Final Result Performing Organization Address [facility] de Phone Number [facility] Department of Laboratories [place], [place] [phone] * (ABNORMAL) Lidocaine level (05/28/2024 3:36 AM [facility] ALL TRADES) Lidocaine (Xylocaine) <1.0(L) 1.5 - 5.0 mcg/mL Blood 05/28/2024 3:36 AM [facility] 05/28/2024 4:30 AM [facility] Gonzalez Lamar DO LAB BLOOD ORDERABLES Fin al Result Performing Organization Address [facility] de Phone Number [facility] [place] [address] * (ABNORMAL) CBC without differential (05/28/2024 3:36 AM [facility] ALL TRADES) WBC 5.0 3.8 - 9.9 K/cumm Hgb 11.7(L) 13.0 - 17.5 g/dL [facility] Hct 35.3(L) 38.9 - 50.3 % [facility] Plt 240 150 - 400 K/cumm [facility] MPV 9.5 9.1 - 12.3 fL [facility] RBC 3.82(L) 4.30 - 5.80 M/cumm [facility] MCV 92.4 81.3 - 96.4 fL [facility] MCH 30.6 27.1 - 33.3 pg [facility] MCHC 33.1 32.3 - 35.7 g/dL [facility] RDW CV 13.3 11.1 - 14.9 % [facility] RDW SD 45.1 35.7 - 48.1 fL [facility] NRBC abs 0.00 0.00 - 0.01 K/cumm [facility] Blood 05/28/2024 3:36 AM [facility] 05/28/2024 4:32 AM [facility] Leo Manzano MD LAB BLOOD ORDERABLES Final Result [facility] Department [place] [address] * Basic metabolic panel (05/28/2024 3:36 AM [facility] ALL TRADES) Sodium 140 135 - 145 mmol/L Potassium, pl 4.0 3.3 - 4.9 mmol/L [facility] Chloride 103 97 - 110 mmol/L [facility] CO2 25 22 - 32 mmol/L [facility] Anion gap 12 2 - 15 mmol/L [facility] BUN 18 6 - 25 mg/dL [facility] Creatinine 1.10 0.80 - 1.30 mg/dL [facility] Glucose 85 70 - 199 mg/dL [facility] Comment: Interpretive Data Fasting glucose >/= 126 [...] 2022. Calcium 9.1 8.5 - 10.3 mg/dL [facility] Blood 05/28/2024 3:36 AM [facility]ADES 05/28/2024 4:30 AM [facility]ADES Leo Manzano MD LAB BLOOD ORDERABLES Final Result Performing Organization Address [facility] de Phone Number [facility] [place] [address] * Lidocaine level (05/27/2024 3:29 AM JACK OF ALL TRADES) Pathologist [facility] Lidocaine (Xylocaine) 1.5 1.5 - 5.0 mcg/mL Blood 05/27/2024 3:29 AM [facility]ACK OF ALL TRADES 05/27/2024 4:21 AM JACK OF ALL TRADES Gonzalez Lamar DO LAB BLOOD ORDERABLES Fin al Result Performing Organization Address [facility] [place] [address] * Type and screen (05/27/2024 3:29 AM JACK OF ALL TRADES) [facility] Ellen, indirect Negative ABO Rh A Positive [facility] Blood 05/27/2024 3:29 AM [facility] ALL TRADES 05/27/2024 4:33 AM JACK OF ALL TRADES Narrative [facility] - 05/27/2024 5:33 AM JACK OF ALL TRADES Has the patient had Daratumumab or Isatuximab in the past 6 months?->Unknown Moriah Amin NP LAB BLOOD BANK TEST ORDERABLE S Final Result Performing Organization Address [facility] [place] [address] * eGFR (05/26/2024 4:38 AM JACK OF ALL TRADES) [facility] eGFR 86 >=60 mL/min/1. 73 m2 Comment: [...] last reviewed 2021. Blood 05/26/2024 4:38 AM [facility] ALL TRADES 05/26/2024 5:46 AM JACK OF ALL TRADES us Moriah Amin RECREATIONAL THERAPY TECHNICIAN LAB BLOOD ORDERABLES Final Re sult Performing Organization Address [facility] de Phone Number [facility] Department [place] [address] * Lidocaine level (05/26/2024 4:38 AM JACK OF ALL TRADES) Lidocaine (Xylocaine) 1.8 1.5 - 5.0 mcg/mL Blood 05/26/2024 4:38 AM [facility] ALL TRADES 05/26/2024 5:46 AM JACK OF ALL TRADES us Gonzalez Lamar DO LAB BLOOD ORDERABLES Fin al Result Performing Organization Address [facility]/ZIP Co de Phone Number [facility] Department [place] [address] * (ABNORMAL) CBC without differential (05/26/2024 4:38 AM JACK OF ALL TRADES) [facility] WBC 5.5 3.8 - 9.9 K/cumm Hgb 11.5(L) 13.0 - 17.5 g/dL [facility] Hct 34.0(L) 38.9 - 50.3 % [facility] Plt 222 150 - 400 K/cumm [facility] MPV 9.7 9.1 - 12.3 fL [facility] RBC 3.67(L) 4.30 - 5.80 M/cumm [facility] MCV 92.6 81.3 - 96.4 fL [facility] MCH 31.3 27.1 - 33.3 pg [facility] MCHC 33.8 32.3 - 35.7 g/dL [facility] RDW CV 13.3 11.1 - 14.9 % [facility] RDW SD 45.5 35.7 - 48.1 fL [facility] NRBC abs 0.00 0.00 - 0.01 K/cumm [facility] Blood 05/26/2024 4:38 AM [facility]ES 05/26/2024 5:46 AM [facility] ALL TRADES Moriah Amin NP LAB BLOOD ORDERABLES Final Re sult [facility] Department [place] [address] * Basic metabolic panel (05/26/2024 4:38 AM JACK OF ALL TRADES) [facility] Sodium 141 135 - 145 mmol/L Potassium, pl 3.9 3.3 - 4.9 mmol/L [facility] Chloride 107 97 - 110 mmol/L [facility] CO2 26 22 - 32 mmol/L [facility] Anion gap 8 2 - 15 mmol/L [facility] BUN 15 6 - 25 mg/dL [facility] Creatinine 1.16 0.80 - 1.30 mg/dL [facility] Glucose 78 70 - 199 mg/dL [facility] Comment: Interpretive Data Fasting glucose >/= 126 [...] 2022. Calcium 8.6 8.5 - 10.3 mg/dL [facility] Blood 05/26/2024 4:38 AM [facility] ALL TRADES 05/26/2024 5:46 AM J[facility] [employer] ALL TRADES us Moraih Amin RECREATIONAL THERAPY TECHNICIAN LAB BLOOD ORDERABLES Final Re sult [facility] [place] [address] * eGFR (05/25/2024 4:20 PM JACK OF ALL TRADES) eGFR >90 >=60 mL/min/1. 73 m2 Comment: [...] of Race in Diagnosing Kidney Disease, JASN 202). The CKD-EPI equation should not be used for patients with unstable renal function and has not been validated in children and those over 70. Current interpretive data was last reviewed 2021. Blood 05/25/2024 4:20 PM [facility] ALL TRADES 05/25/2024 4:33 PM JACK [facility] ALL TRADES Moriah Amin RECREATIONAL THERAPY TECHNICIAN LAB BLOOD ORDERABLES Final Re sult Performing Organization Address [facility] Co de Phone Number [facility] [place] [address] * Lidocaine level (05/25/2024 4:20 PM JACK OF ALL TRADES) Pathologist [facility] Lidocaine (Xylocaine) 2.1 1.5 - 5.0 mcg/mL Blood 05/25/2024 4:20 PM [facility] ALL TRADES 05/25/2024 4:33 PM JACK OF ALL TRADES Narrative [facility] - 05/25/2024 5:02 PM J[facility] [employer] ALL TRADES Draw 24 hours after infusion started. Moriah Amin RECREATIONAL THERAPY TECHNICIAN LAB BLOOD ORDERABLES Final Re sult Performing Organization Address [facility] Co de Phone Number [facility] [place] [address] * (ABNORMAL) CBC without differential (05/25/2024 4:20 PM JACK OF ALL TRADES) WBC 6.1 3.8 - 9.9 K/cumm Hgb 12.1(L) 13.0 - 17.5 g/dL [facility] Hct 36.3(L) 38.9 - 50.3 % [facility] Plt 246 150 - 400 K/cumm [facility] MPV 9.6 9.1 - 12.3 fL [facility] RBC 4.03(L) 4.30 - 5.80 M/cumm [facility] MCV 90.1 81.3 - 96.4 fL [facility] MCH 30.0 27.1 - 33.3 pg [facility] MCHC 33.3 32.3 - 35.7 g/dL [facility] RDW CV 13.3 11.1 - 14.9 % [facility] RDW SD 44.0 35.7 - 48.1 fL [facility] NRBC abs 0.00 0.00 - 0.01 K/cumm [facility] Blood 05/25/2024 4:20 PM [facility] ALL TRADES 05/25/2024 4:33 PM JACK [employer] ALL TRADES Moriah Amin NP LAB BLOOD ORDERABLES Final Re sult [facility] [place] [address] * Basic metabolic panel (05/25/2024 4:20 PM JACK OF ALL TRADES) Sodium 140 135 - 145 mmol/L Potassium, pl 3.9 3.3 - 4.9 mmol/L [facility] Chloride 106 97 - 110 mmol/L [facility] CO2 25 22 - 32 mmol/L [facility] Anion gap 9 2 - 15 mmol/L [facility] BUN 10 6 - 25 mg/dL [facility] Creatinine 0.92 0.80 - 1.30 mg/dL [facility] Glucose 98 70 - 199 mg/dL [facility] Comment: Interpretive Data Fasting glucose >/= 126 [...] 2022. Calcium 8.9 8.5 - 10.3 mg/dL [facility] Blood 05/25/2024 4:20 PM [facility] ALL TRADES 05/25/2024 4:33 PM J[facility] ALL TRADES Moriah Amin RECREATIONAL THERAPY TECHNICIAN LAB BLOOD ORDERABLES Final Re sult Performing Organization Address [facility]/ZIP Co de Phone Number JAIRON [facility] Department [place] [address] * Critical Care (05/25/2024 8:12 AM JACK OF ALL TRADES) Narrative Rafiq Rodriguez MD - 05/25/2024 8:12 AM JACK OF ALL TRADES Moriah Amin, TREE ? 05/25/2024 ??3:35 PM Critical Care Performed [...] plan with the patient's team and other medical/consultant internship staff. This time was in addition to and separate from care provided by other practitioners on this day of service. ?? Moriah Amin RECREATIONAL THERAPY TECHNICIAN IN CLINIC/BEDSIDE ORDERABLES Final Result * POCT glucose (05/25/2024 4:16 AM JACK OF ALL TRADES) [facility] Signature Glucose, POC 117 70 - 199 mg/dL Blood 05/25/2024 4:16 AM JACK [employer] ALL TRADES 05/25/2024 4:16 AM JACK OF ALL TRADES Gonzalez Lamar DO LAB POCT ORDERABLES - DE VICE Final Result Performing Organization Address [facility]/ZIP Co de Phone Number [facility] [place] [address] * POCT glucose (05/24/2024 11:36 PM JACK OF ALL TRADES) Glucose, POC 116 70 - 199 mg/dL Blood 05/24/2024 11:3 6 PM JACK OF ALL TRADES 05/24/2024 11:36 PM JACK OF ALL TRADES Gonzalez Lamar DO LAB POCT ORDERABLES - DE VICE Final Result Performing Organization Address [facility] Phone Number [facility] [address] * POCT glucose (05/24/2024 8:50 PM JACK OF ALL TRADES) Glucose, POC 123 70 - 199 mg/dL Blood 05/24/2024 8:50 PM JACK [employer] ALL TRADES 05/24/2024 8:50 PM JACK OF ALL TRADES Gonzalezallan Lamar DO LAB POCT ORDERABLES - DE VICE Final Result Performing Organization Address [facility] Phone Number [facility] [place] [address] * Critical Care (05/24/2024 8:47 PM JACK OF ALL TRADES) Narrative Ag Lemos MD - 05/24/2024 8:47 PM JACK [employer] ALL TRADES Ag Lemos MD ? 05/25/2024 ??6:53 AM [...] plan with the ICU team and other medical/consultant internship staff, making frequent assessments and decisions regarding [...] Final Result * eGFR (05/24/2024 5:43 PM JACK OF ALL TRADES) eGFR >90 >=60 mL/min/1. 73 m2 Comment: [...] last reviewed 2021. Blood 05/24/2024 5:43 PM [facility] [employer] ALL TRADES 05/24/2024 6:00 PM JACK [employer] ALL TRADES us Gonzalez Lamar DO LAB BLOOD ORDERABLES Fin al Result [facility] [place] [address] * Differential, auto (05/24/2024 5:43 PM JACK OF ALL TRADES) Neutrophil abs 4.9 1.5 - 6.5 K/cumm Imm gran abs 0.0 0.0 - 0.1 K/cumm [facility] Lymphocyte abs 1.4 0.8 - 3.3 K/cumm [facility] Monocyte abs 0.8 0.2 - 0.8 K/cumm [facility] Eosinophil abs 0.1 0.0 - 0.5 K/cumm [facility] Basophil abs 0.1 0.0 - 0.1 K/cumm [facility] Neutrophil pct 67.4 % [facility] Comment: Interpretive Data Percent cell count reference ranges are not reported, since discordance with absolute values may lead to misinterpretation of CBC data. Current Interpretive Data was last revised on 2017. Imm gran pct 0.4 % [facility] Comment: Interpretive Data Percent cell count reference ranges are not reported, since discordance with absolute values may lead to misinterpretation of CBC data. Current Interpretive Data was last revised on 2017. Lymphocyte pct 19.4 % [facility] Comment: Interpretive Data Percent cell count reference ranges are not reported, since discordance with absolute values may lead to misinterpretation of CBC data. Current Interpretive Data was last revised on 2017. Monocyte pct 11.3 % [facility] Comment: Interpretive Data Percent cell count reference ranges are not reported, since discordance with absolute values may lead to misinterpretation of CBC data. Current Interpretive Data was last revised on 2017. Eosinophil pct 0.8 % [facility] Comment: Interpretive Data Percent cell count reference ranges are not reported, since discordance with absolute values may lead to misinterpretation of CBC data. Current Interpretive Data was last revised on 2017. Basophil pct 0.7 % [facility] Comment: Interpretive Data Percent cell count reference ranges are not reported, since discordance with absolute values may lead to misinterpretation of CBC data. Current Interpretive Data was last revised on 2017. Blood 05/24/2024 5:43 PM JACK [employer] ALL TRADES 05/24/2024 6:00 PM JACK OF ALL TRADES Gonzalez Lamar DO LAB BLOOD ORDERABLES Fin al Result Performing Organization Address City/[facility]/ZIP Co de Phone Number [facility] [place] [address] * (ABNORMAL) CBC with auto differential (05/24/2024 5:43 PM JACK OF ALL TRADES) WBC 7.2 3.8 - 9.9 K/cumm Hgb 11.5(L) 13.0 - 17.5 g/dL [facility] Hct 34.7(L) 38.9 - 50.3 % [facility] Plt 233 150 - 400 K/cumm [facility] MPV 9.2 9.1 - 12.3 fL [facility] RBC 3.77(L) 4.30 - 5.80 M/cumm [facility] MCV 92.0 81.3 - 96.4 fL [facility] MCH 30.5 27.1 - 33.3 pg [facility] MCHC 33.1 32.3 - 35.7 g/dL [facility] RDW CV 13.0 11.1 - 14.9 % [facility] RDW SD 43.8 35.7 - 48.1 fL [facility] NRBC abs 0.00 0.00 - 0.01 K/cumm [facility] Blood 05/24/2024 5:43 PM JACK [facility] ALL TRADES 05/24/2024 6:00 PM JACK [facility] ALL TRADES Gonzalez Lamar DO LAB BLOOD ORDERABLES Fin al Result Performing Organization Address City/[facility]/ZIP Co de Phone Number [facility] [place] [address] * Lactate, whole blood (05/24/2024 5:43 PM JACK OF ALL TRADES) [facility] Lactate, bld 0.7 0.7 - 2.0 mmol/L Blood 05/24/2024 5:43 PM JACK [facility] ALL TRADES 05/24/2024 5:50 PM JACK [facility] ALL TRADES Moriah Amin RECREATIONAL THERAPY TECHNICIAN LAB BLOOD ORDERABLES Final Re sult Performing Organization Address City/State/[facility] Co de Phone Number [facility] [place] [address] * Phosphorus (05/24/2024 5:43 PM JACK OF ALL TRADES) [facility] Phosphorus, pl 2.7 2.3 - 4.5 mg/dL Blood 05/24/2024 5:43 PM JACK [facility] ALL TRADES 05/24/2024 6:00 PM JACK [facility] ALL TRADES Gonzalez Lamar DO LAB BLOOD ORDERABLES Fin al Result Performing Organization Address [facility] Co de Phone Number [facility] [place] [address] * Magnesium (05/24/2024 5:43 PM JACK OF ALL TRADES) [facility] Magnesium 2.0 1.4 - 2.5 mg/dL Blood 05/24/2024 5:43 PM JACK OF ALL TRADES 05/24/2024 6:00 PM JACK [facility] ALL TRADES Gonzalez Lamar DO LAB BLOOD ORDERABLES Fin al Result Performing Organization Address [facility] [place] [address] * Amylase (05/24/2024 5:43 PM JACK OF ALL TRADES) [facility] Amylase 35 30 - 99 Units/L Blood 05/24/2024 5:43 PM JACK [facility] ALL TRADES 05/24/2024 6:00 PM JACK OF ALL TRADES Moriah Amin NP LAB BLOOD ORDERABLES Final Re sult [facility] [place] [address] * Comprehensive metabolic panel (05/24/2024 5:43 PM JACK OF ALL TRADES) Sodium 140 135 - 145 mmol/L Potassium, pl 3.9 3.3 - 4.9 mmol/L [facility] Chloride 105 97 - 110 mmol/L [facility] CO2 25 22 - 32 mmol/L [facility] Anion gap 10 2 - 15 mmol/L [facility] BUN 6 6 - 25 mg/dL [facility] Creatinine 0.88 0.80 - 1.30 mg/dL [facility] Glucose 86 70 - 199 mg/dL [facility] Comment: Interpretive Data Fasting glucose >/= 126 [...] 2022. Calcium 8.9 8.5 - 10.3 mg/dL [facility] Bilirubin, total 0.8 0.1 - 1.2 mg/dL [facility] Protein, pl 6.7 6.5 - 8.5 g/dL [facility] Albumin 4.1 3.5 - 5.0 g/dL [facility] Alk phos 81 40 - 130 Units/L [facility] ALT 15 7 - 55 Units/L [facility] AST 17 10 - 50 Units/L [facility] Blood 05/24/2024 5:43 PM JACK [facility] ALL TRADES 05/24/2024 6:00 PM JACK OF ALL TRADES us Gonzalez Lamar DO LAB BLOOD ORDERABLES Fin al Result JAIRON [facility] [place] [address] * POCT glucose (05/24/2024 3:52 PM JACK OF ALL TRADES) Glucose, POC 84 70 - 199 mg/dL Blood 05/24/2024 3:52 PM JACK OF ALL TRADES 05/24/2024 3:52 PM JACK OF ALL TRADES us Gonzalez Lamar DO LAB POCT ORDERABLES - DE VICE Final Result Performing Organization Address [facility] Co de Phone Number JAIRON [facility] [place] [address] * POCT glucose (05/24/2024 11:06 AM JACK OF ALL TRADES) Glucose, POC 138 70 - 199 mg/dL Blood 05/24/2024 11:0 6 AM JACK [facility] ALL TRADES 05/24/2024 11:06 AM JACK OF ALL TRADES us Gonzalez Lamar DO LAB POCT ORDERABLES - DE VICE Final Result Performing Organization Address [facility] Co de Phone Number JAIRON [facility] [place] [address] * POCT glucose (05/24/2024 7:46 AM JACK OF ALL TRADES) Glucose, POC 86 70 - 199 mg/dL Blood 05/24/2024 7:46 AM JACK OF ALL TRADES 05/24/2024 7:46 AM JACK OF ALL TRADES us Gonzalez Lamar DO LAB POCT ORDERABLES - DE VICE Final Result Performing Organization Address City/[facility] Co de Phone Number JAIRON [facility] [place] [address] * Critical Care (05/24/2024 6:15 AM JACK OF ALL TRADES) Narrative Rafiq Rodriguez MD - 05/24/2024 6:15 AM JACK [facility] ALL TRADES Moriah Amin NP ? 05/24/2024 ??5:42 PM [...] plan with the ICU team and other medical/consultant internship staff, making frequent assessments and decisions regarding [...] the following conditions: ?? us Moriah Amin RECREATIONAL THERAPY TECHNICIAN IN CLINIC/BEDSIDE ORDERABLES Final Result * POCT glucose (05/24/2024 3:23 AM JACK OF ALL TRADES) Glucose, POC 85 70 - 199 mg/dL Blood 05/24/2024 3:23 AM JACK OF ALL TRADES 05/24/2024 3:23 AM JACK OF ALL TRADES us Gonzalez Lamar DO LAB POCT ORDERABLES - DE VICE Final Result [facility] [place] [address] * POCT glucose (05/23/2024 11:04 PM JACK OF ALL TRADES) Glucose, POC 84 70 - 199 mg/dL Blood 05/23/2024 11:0 4 PM JACK OF ALL TRADES 05/23/2024 11:04 PM JACK OF ALL TRADES Gonzalez Otoniel Willard DO LAB POCT ORDERABLES - DE VICE Final Result Performing Organization Address [facility] Co de Phone Number JAIRON [facility] [place] [address] * Lactate (05/23/2024 8:33 PM JACK OF ALL TRADES) Lactate 0.7 0.7 - 2.0 mmol/L Blood 05/23/2024 8:33 PM JACK OF ALL TRADES 05/23/2024 9:39 PM JACK OF ALL TRADES Gonzalez Lamar DO LAB BLOOD ORDERABLES Fin al Result Performing Organization Address [facility] Phone Number [facility] [place] [address] * eGFR (05/23/2024 8:33 PM JACK OF ALL TRADES) eGFR >90 >=60 mL/min/1. 73 m2 Comment: [...] last reviewed 2021. Blood 05/23/2024 8:33 PM JACK OF ALL TRADES 05/23/2024 9:17 PM JACK OF ALL TRADES us Gonzalez Lamar DO LAB BLOOD ORDERABLES Fin al Result [facility] [place] [address] * Differential, auto (05/23/2024 8:33 PM JACK OF ALL TRADES) Neutrophil abs 3.9 1.5 - 6.5 K/cumm Imm gran abs 0.0 0.0 - 0.1 K/cumm [facility] Lymphocyte abs 1.9 0.8 - 3.3 K/cumm [facility] Monocyte abs 0.8 0.2 - 0.8 K/cumm [facility] Eosinophil abs 0.0 0.0 - 0.5 K/cumm [facility] Basophil abs 0.0 0.0 - 0.1 K/cumm [facility] Neutrophil pct 58.1 % [facility] Comment: Interpretive Data Percent cell count reference ranges are not reported, since discordance with absolute values may lead to misinterpretation of CBC data. Current Interpretive Data was last revised on 2017. Imm gran pct 0.4 % [facility] Comment: Interpretive Data Percent cell count reference ranges are not reported, since discordance with absolute values may lead to misinterpretation of CBC data. Current Interpretive Data was last revised on 2017. Lymphocyte pct 28.1 % [facility] Comment: Interpretive Data Percent cell count reference ranges are not reported, since discordance with absolute values may lead to misinterpretation of CBC data. Current Interpretive Data was last revised on 2017. Monocyte pct 12.4 % [facility] Comment: Interpretive Data Percent cell count reference ranges are not reported, since discordance with absolute values may lead to misinterpretation of CBC data. Current Interpretive Data was last revised on 2017. Eosinophil pct 0.4 % [facility] Comment: Interpretive Data Percent cell count reference ranges are not reported, since discordance with absolute values may lead to misinterpretation of CBC data. Current Interpretive Data was last revised on 2017. Basophil pct 0.6 % [facility] Comment: Interpretive Data Percent cell count reference ranges are not reported, since discordance with absolute values may lead to misinterpretation of CBC data. Current Interpretive Data was last revised on 2017. Blood 05/23/2024 8:33 PM JACK OF ALL TRADES 05/23/2024 9:29 PM JACK [facility] ALL TRADES Gonzalez Lamar DO LAB BLOOD ORDERABLES Fin al Result Performing Organization Address [facility] Co de Phone Number [facility] [place] [address] * (ABNORMAL) Calcium, ionized (05/23/2024 8:33 PM JACK OF ALL TRADES) Pathologist [facility] Calcium, Ionized 4.48(L) 4.50 - 5.10 mg/dL Blood 05/23/2024 8:33 PM JACK OF ALL TRADES 05/23/2024 9:17 PM JACK OF ALL TRADES Gonzalez Lamar DO LAB BLOOD ORDERABLES Fin al Result Performing Organization Address [facility] de Phone Number [facility] [place] [address] * (ABNORMAL) CBC with auto differential (05/23/2024 8:33 PM JACK OF ALL TRADES) Pathologist [facility] WBC 6.8 3.8 - 9.9 K/cumm Hgb 11.4(L) 13.0 - 17.5 g/dL [facility] Hct 33.7(L) 38.9 - 50.3 % [facility] Plt 237 150 - 400 K/cumm [facility] MPV 9.5 9.1 - 12.3 fL [facility] RBC 3.80(L) 4.30 - 5.80 M/cumm [facility] MCV 88.7 81.3 - 96.4 fL [facility] MCH 30.0 27.1 - 33.3 pg [facility] MCHC 33.8 32.3 - 35.7 g/dL [facility] RDW CV 13.0 11.1 - 14.9 % [facility] RDW SD 42.2 35.7 - 48.1 fL [facility] NRBC abs 0.00 0.00 - 0.01 K/cumm [facility] Blood 05/23/2024 8:33 PM [facility] [employer] 05/23/2024 9:29 PM [facility] [employer] Gonzalez Lamar DO LAB BLOOD ORDERABLES Fin al Result Performing Organization Address [facility] de Phone Number [facility] [place] [place] [address] * aPTT (05/23/2024 8:33 PM [facility] [employer]) aPTT 31 28 - 38 sec Comment: Interpretive Data Heparin therapeutic range: 66.0 - 100.0 seconds. Range based on correlation with therapeutic heparin activity range of 0.3 - 0.7 Units/mL. Current interpretive data was last revised on 2023. Blood 05/23/2024 8:33 PM JACK OF ALL TRADES 05/23/2024 9:20 PM JACK OF ALL TRADES Gonzalez Lamar DO LAB BLOOD ORDERABLES Fin al Result Performing Organization Address [facility] de Phone Number [facility] [place] [address] * (ABNORMAL) Protime-INR (05/23/2024 8:33 PM JACK OF ALL TRADES) PT 14.6(H) 9.7 - 13.0 sec INR 1.34(H) 0.90 - 1.20 [facility] Comment: Interpretive data Oral anticoagulant therapeutic ranges: Venous thromboembolism prophylaxis or treatment: 2.0-3.0 CARDIOLOGY Standard range: 2.0-3.0 High-intensity range: 2.5-3.5 Refer to indication-specific guidelines for appropriate target ranges for prosthetic heart valve replacement. Current interpretive data was last revised on 2019. Blood 05/23/2024 8:33 PM JACK OF ALL TRADES 05/23/2024 9:20 PM JACK OF ALL TRADES Gonzalez Lamar DO LAB BLOOD ORDERABLES Fin al Result Performing Organization Address City/[facility] Co de Phone Number [facility] [place] [address] * Type and screen (05/23/2024 8:33 PM JACK OF ALL TRADES) Ellen, indirect Negative ABO Rh A Positive [facility] Blood 05/23/2024 8:33 PM JACK OF ALL TRADES 05/23/2024 9:31 PM JACK OF ALL TRADES Narrative [facility] - 05/23/2024 10:36 PM JACK OF ALL TRADES Has the patient had Daratumumab or Isatuximab in the past 6 months?->Unknown Moriah Amin RECREATIONAL THERAPY TECHNICIAN LAB BLOOD BANK TEST ORDERABLE S Final Result Performing Organization Address [facility] [place] [address] * Phosphorus (05/23/2024 8:33 PM JACK OF ALL TRADES) Phosphorus, pl 2.5 2.3 - 4.5 mg/dL Blood 05/23/2024 8:33 PM JACK OF ALL TRADES 05/23/2024 9:17 PM JACK OF ALL TRADES Gonzalez Lamar DO LAB BLOOD ORDERABLES Fin al Result Performing Organization Address City/[facility] Co de Phone Number [facility] [place] [address] * Magnesium (05/23/2024 8:33 PM JACK OF ALL TRADES) [facility] Magnesium 2.0 1.4 - 2.5 mg/dL Blood 05/23/2024 8:33 PM JACK OF ALL TRADES 05/23/2024 9:17 PM JACK OF ALL TRADES Gonzalez Lamar DO LAB BLOOD ORDERABLES Fin al Result Performing Organization Address [facility] Co de Phone Number [facility] [place] [address] * Creatine kinase (CK), total (05/23/2024 8:33 PM JACK OF ALL TRADES) [facility] CK 159 40 - 300 Units/L Blood 05/23/2024 8:33 PM JACK OF ALL TRADES 05/23/2024 9:17 PM JACK OF ALL TRADES Gonzalez Lamar DO LAB BLOOD ORDERABLES Fin al Result Performing Organization Address [facility] de Phone Number [facility] Department [place] [address] * (ABNORMAL) Comprehensive metabolic panel (05/23/2024 8:33 PM JACK OF ALL TRADES) [facility] Sodium 141 135 - 145 mmol/L Potassium, pl 3.2(L) 3.3 - 4.9 mmol/L [facility] Chloride 105 97 - 110 mmol/L [facility] CO2 25 22 - 32 mmol/L [facility] Anion gap 11 2 - 15 mmol/L [facility] BUN 11 6 - 25 mg/dL [facility] Creatinine 1.03 0.80 - 1.30 mg/dL [facility] Glucose 84 70 - 199 mg/dL [facility] Comment: Interpretive Data Fasting glucose >/= 126 [...] 2022. Calcium 9.0 8.5 - 10.3 mg/dL [facility] Bilirubin, total 1.2 0.1 - 1.2 mg/dL [facility] Protein, pl 7.0 6.5 - 8.5 g/dL [facility] Albumin 4.2 3.5 - 5.0 g/dL [facility] Alk phos 83 40 - 130 Units/L [facility] ALT 15 7 - 55 Units/L [facility] AST 16 10 - 50 Units/L [facility] Blood 05/23/2024 8:33 PM JACK OF ALL TRADES 05/23/2024 9:17 PM JACK OF ALL TRADES us Gonzalez Lamar DO LAB BLOOD ORDERABLES Fin al Result Performing Organization Address City/[facility]/ZIP Co de Phone Number [facility] [place] [address] * CT Body Outside Reference (05/23/2024 8:22 PM JACK OF ALL TRADES) Impressions [facility] - 05/23/2024 8:22 PM JACK OF ALL TRADES These images are for Reference purposes only and have not been reviewed by [facility] Radiology. ??There will be no report generated by a [facility] Radiologist. Narrative [facility] - 05/23/2024 8:22 PM JACK OF ALL TRADES EXAMINATION: ??Images For Reference Purposes Only us Gadiel Ireland MD IMG CT PROCEDURES Final Result [facility] * CT Body Outside Consult (05/23/2024 8:18 PM JACK OF ALL TRADES) Anatomical Region Laterality Modality Body N/A Computed Tomogra phy 05/24/2024 8:05 AM JACK OF ALL TRADES Impressions 05/24/2024 8:05 AM JACK OF ALL TRADES 1. ??Unchanged thoracoabdominal aortic dissection status post [...] images may or may not represent the [place] source data set and thus may contain changes that may lower the accuracy of this second-opinion interpretation. Electronically signed by: Shahrzad Zimmerman M.D. Narrative 05/24/2024 8:05 AM JACK OF ALL TRADES EXAMINATION: RADIOLOGY CONSULTATION ON OUTSIDE IMAGING STUDY STUDY INITIALLY PERFORMED: 05/23/2024 at [place]. TYPE OF STUDY: Multiple CT images of [...] IMAGING STUDY STUDY INITIALLY PERFORMED: 05/23/2024 at [place]. TYPE OF STUDY: Multiple CT images of [...] images may or may not represent the [place] source data set and thus may contain changes that may lower the accuracy of this second-opinion interpretation. Electronically signed by: Shahrzad Zimmerman M.D. Gadiel Ireland MD IMG CT PROCEDURES Final Result * POCT glucose (05/23/2024 7:47 PM JACK OF ALL TRADES) [facility] Glucose, POC 80 70 - 199 mg/dL Blood 05/23/2024 7:47 PM JACK OF ALL TRADES 05/23/2024 7:47 PM JACK OF ALL TRADES Gonzalez Lamar DO LAB POCT ORDERABLES - DE VICE Final Result [facility] [place] [address] * POCT Rapid HIV Antibody Community Screening-[place] Eligible (05/21/2024 7:35 PM JACK OF ALL TRADES) [facility] Rapid HIV, POC Negative Negative Lot Number [id number] QC Control Line Acceptable Blood 05/21/2024 7:35 PM JACK OF ALL TRADES Marcus Amaya MD POINT OF CARE TEST ORD ERABLES Final Result * (ABNORMAL) Oxycodone Confirmation, Urine (05/21/2024 5:34 PM JACK OF ALL TRADES) [facility] Oxycodone Conf, Ur Confirmed Positive(A) CutOff 50 ng/mL Oxymorphone Conf, Ur Does Not Confirm CutOff 50 ng/mL [facility] Comment: Interpretive Data This test detects the presence or absence of drug compounds using LC Tandem mass spectrometry and is not intended to assess compliance with prescribed medications. While this test is highly specific, false positive and false negative results may occur in very rare circumstances. Contact the laboratory for consultation, if needed. Performance characteristics were determined by the [facility] in a manner consistent with CLIA requirement and has not been cleared or approved by the U.S. Food and Drug Administration. Current interpretive data was last revised 2020. Urine 05/21/2024 5:34 PM JACK OF ALL TRADES 05/21/2024 5:46 PM JACK OF ALL TRADES us Marcus Amaya MD LAB URINE ORDERABLES F inal Result [facility] Department [place] [address] * (ABNORMAL) Fentanyl Confirmation, Urine (05/21/2024 5:34 PM JACK OF ALL TRADES) Fentanyl Conf, Ur Confirmed Positive(A) Cutoff 0.3ng/mL Acetylfentanyl Conf, Ur Does Not Confirm Cutoff 1 ng/mL [facility] Acrylfentanyl Conf, Ur Does Not Confirm Cutoff 1 ng/mL [facility] Furanylfentanyl Conf, Ur Does Not Confirm Cutoff 1 ng/mL [facility] Fentanyl Metabolite (Norfentanyl) Conf, Ur Confirmed Positive(A) CutOff 5 ng/mL [facility] Xylazine MS Does Not Confirm Cutoff 1 ng/mL [facility] Comment: Interpretive Data This test detects the presence or absence of drug compounds using LC Tandem mass spectrometry and is not intended to assess compliance with prescribed medications. While this test is highly specific, false positive and false negative results may occur in very rare circumstances. Contact the laboratory for consultation, if needed. Performance characteristics were determined by the [facility] in a manner consistent with CLIA requirement and has not been cleared or approved by the U.S. Food and Drug Administration. Current interpretive data was last revised 2020. Urine 05/21/2024 5:34 PM JACK OF ALL TRADES 05/21/2024 5:46 PM JACK OF ALL TRADES Marcus Amaya MD LAB URINE ORDERABLES F inal Result [facility] [place] [address] * (ABNORMAL) Drugs of Abuse Screen, Urine with Reflex Confirmation (05/21/2024 5:34 PM JACK OF ALL TRADES) Amphetamine, ur Screen Positive, presumptive (A) CutOff 500ng/mL Comment: Interpretive Data - Amphetamines: ??Samples containing greater than 500 ng/mL d-methamphetamine ??or other cross-reacting amphetamine compounds are reported as positive. ??Amphetamine immunoassays are subject to significant false positive rates due to cross-reactivity of non-amphetamine drugs. Confirmatory testing required for definitive results. Current Interpretive Data was last reviewed 2022. Barbiturates, ur Not Detected CutOff 200ng/mL [facility] Comment: Interpretive Data - Barbiturates: ??Samples containing greater than 200 ng/mL secobarbital or other cross-reacting barbiturate compounds are reported as positive. ??False positive and false negative results are possible. Confirmatory testing required for definitive results. Current Interpretive Data was last reviewed 2022. Benzodiazepines, ur Screen Positive, presumptive (A) CutOff 100ng/mL [facility] Comment: Interpretive Data - Benzodiazepines: ??Samples containing greater than 100 ng/mL nordiazepam or other cross-reacting compounds are reported as positive. False positive and false negative results are possible. Confirmatory testing required for definitive results. Current Interpretive Data was last reviewed 2022. Cannabinoids, ur Screen Positive, presumptive (A) CutOff 50 ng/mL [facility] Comment: Interpretive Data - Cannabinoids: ??Samples containing greater than 50 ng/mL delta-9 THC -COOH or other cross-reacting compounds are reported as positive. ??False positive and false negative results are possible. ??Confirmatory testing required for definitive results. Current Interpretive Data was last reviewed 2022. Cocaine, ur Not Detected CutOff 150ng/mL [facility] Comment: Interpretive Data - Cocaine: ??Samples containing greater than 150 ng/mL benzoylecgonine or other cross-reacting compounds are reported as positive. False positive and false negative results are possible. Confirmatory testing required for definitive results. Current Interpretive Data was last reviewed 2022. Fentanyl, Ur Screen Positive, presumptive (A) CutOff 5 ng/mL [facility] Comment: Interpretive Data - Fentanyl: ?? Samples containing greater than 5 ng/mL norfentanyl, fentanyl, or other cross-reacting fentanyl compounds are reported as positive. False positive and false negative results are possible. Confirmatory testing required for definitive results. Current Interpretive Data was last reviewed 2023. Methadone, ur Not Detected CutOff 300ng/mL [facility] Comment: Interpretive Data - Methadone: ??Samples containing greater than 300 ng/mL d,l-methadone or other cross-reacting compounds are reported as positive. ??False positive and false negative results are possible. Confirmatory testing required for definitive results. Current Interpretive Data was last reviewed 2022. Opiates, ur Not Detected CutOff 300ng/mL [facility] Comment: Interpretive Data - Opiates: ??Samples containing greater than 300 ng/mL morphine or other cross-reacting compounds are reported as positive. ??False positive and false negative results are possible. Confirmatory testing required for definitive results. Current Interpretive Data was last reviewed 2022. Oxycodone, ur Screen Positive, presumptive (A) CutOff 100ng/mL [facility] Comment: Interpretive Data - Oxycodone: ??Samples containing greater than 100 ng/mL oxycodone or other cross-reacting compounds are reported as ??positive. ??False positive and false negative results are possible. Confirmatory testing required for definitive results. Current Interpretive Data was last reviewed 2022. Phencyclidine, ur Not Detected CutOff 25 ng/mL [facility] Comment: Interpretive Data - Phencyclidine: ??Samples containing greater than 25 ng/mL phencyclidine or other cross-reacting compounds are reported as positive. ??False positive and false negative results are possible. Confirmatory testing required for definitive results. Current Interpretive Data was last reviewed 2022. Urine Creatinine 357 mg/dL [facility] Comment: Interpretive Data Urine Creatinine: < 10 mg/dL is extremely dilute = or > 10 but < 20 mg/dL is dilute = or > 20 mg/dL is normal Current Interpretive Data was last revised on 2017. Urine 05/21/2024 5:34 PM JACK OF ALL TRADES 05/21/2024 5:46 PM JACK OF ALL TRADES Narrative [facility] - 05/21/2024 6:16 PM JACK OF ALL TRADES Drug of Abuse screening is performed by immunoassay for medical purposes only. ??This is not to be used for Pain Management purposes. ??If Detected, confirmation testing will be performed for Amphetamines, Cocaine, Fentanyl, Methadone, Opiates, Oxycodone or Phencyclidine. Marcus Amaya MD LAB URINE ORDERABLES F inal Result [facility] Department [place] [address] * (ABNORMAL) Urinalysis reflex to microscopic (05/21/2024 5:34 PM JACK OF ALL TRADES) Color, ur Yellow Yellow Clarity, ur Clear Clear [facility] Specific gravity, ur 1.032(H) 1.003 - 1.030 [facility] pH, urine 6.0 [facility] Comment: Interpretive Data ? Urine pH is affected by diet, medications, systemic acid-base disturbances, and renal tubular function. ??pH may affect urinary stone formation. ??For example, urine pH below 6.0 may help reduce the tendency for calcium phosphate stones and pH greater than 6.0 may reduce the tendency for uric acid stone formation. Source: [facility] [place] Current Interpretive Data was last revised on 2017 Protein, ur ql 2+(A) Negative [facility] Glucose, ur ql Negative Negative [facility] Ketones, ur 1+(A) Negative [facility] Bilirubin, ur Negative Negative [facility] Blood, ur Negative Negative [facility] Urobilinogen, ur <2.0 <2.0 mg/dL [facility] Nitrite, ur Negative Negative [facility] Leukocyte esterase, ur Negative Negative [facility] UA reflex comment Reflex to microscopic UA will be performed. [facility] Urine 05/21/2024 5:34 PM JACK OF ALL TRADES 05/21/2024 5:39 PM JACK OF ALL TRADES Marcus Amaya MD LAB URINE ORDERABLES F inal Result Performing Organization Address [facility] de Phone Number [facility] Department [place] [address] * Amphetamine Confirmation, Urine (05/21/2024 5:34 PM JACK OF ALL TRADES) Amphetamine Conf, Ur Does Not Confirm CutOff 150ng/mL Methamphetamine Conf, Ur Does Not Confirm CutOff 150ng/mL [facility] MDA Conf, Ur Does Not Confirm CutOff 150ng/mL [facility] MDMA Conf, Ur Does Not Confirm CutOff 50 ng/mL [facility] MDEA Conf, Ur Does Not Confirm CutOff [...] needed. Performance characteristics were determined by the [facility] in a manner consistent with CLIA requirement and has not been cleared or approved by the U.S. Food and Drug Administration. Current interpretive data was last revised on 2020. Urine 05/21/2024 5:34 PM JACK OF ALL TRADES 05/21/2024 5:46 PM JACK OF ALL TRADES Marcus Amaya MD LAB URINE ORDERABLES F inal Result Performing Organization Address [facility] Co de Phone Number [facility] Department [place] [address] * (ABNORMAL) Urinalysis, microscopic only (05/21/2024 5:34 PM JACK OF ALL TRADES) WBC, ur 0-5 0 - 5 /HPF RBC, ur 0-2 0 - 2 /HPF [facility] Epithelial cells, squamous, ur 1-5 0 - 5 /HPF [facility] Bacteria, ur Trace(A) [facility] Mucous, ur Present(A) [facility] Hyaline casts, ur 11-20(A) 0 - 10 /LPF [facility] Urine 05/21/2024 5:34 PM JACK OF ALL TRADES 05/21/2024 5:39 PM JACK OF ALL TRADES Marcus Amaya MD LAB URINE ORDERABLES F inal Result Performing Organization Address City/[facility] Co de Phone Number [facility] [place] [address] * Sepsis Lactate w/ Reflex (05/21/2024 4:33 PM JACK OF ALL TRADES) Pathologist [facility] Sepsis Lactate 1.9 0.7 - 2.0 mmol/L Blood 05/21/2024 4:33 PM JACK OF ALL TRADES 05/21/2024 4:44 PM JACK OF ALL TRADES Marcus Amaya MD LAB BLOOD ORDERABLES F inal Result Performing Organization Address [facility] de Phone Number [facility] [place] [address] * eGFR (05/21/2024 3:41 PM JACK OF ALL TRADES) eGFR 70 >=60 mL/min/1. 73 m2 Comment: [...] last reviewed 2021. Blood 05/21/2024 3:41 PM JACK OF ALL TRADES 05/21/2024 4:03 PM JACK OF ALL TRADES us Chelle Elliott MD LAB BLOOD ORDERABLES Final Result [facility] [place] [address] * (ABNORMAL) Differential, auto (05/21/2024 3:41 PM JACK OF ALL TRADES) Neutrophil abs 6.9(H) 1.5 - 6.5 K/cumm Imm gran abs 0.0 0.0 - 0.1 K/cumm [facility] Lymphocyte abs 1.5 0.8 - 3.3 K/cumm [facility] Monocyte abs 0.9(H) 0.2 - 0.8 K/cumm [facility] Eosinophil abs 0.0 0.0 - 0.5 K/cumm [facility] Basophil abs 0.0 0.0 - 0.1 K/cumm [facility] Neutrophil pct 73.5 % [facility] Comment: Interpretive Data Percent cell count reference ranges are not reported, since discordance with absolute values may lead to misinterpretation of CBC data. Current Interpretive Data was last revised on 2017. Imm gran pct 0.3 % [facility] Comment: Interpretive Data Percent cell count reference ranges are not reported, since discordance with absolute values may lead to misinterpretation of CBC data. Current Interpretive Data was last revised on 2017. Lymphocyte pct 15.7 % [facility] Comment: Interpretive Data Percent cell count reference ranges are not reported, since discordance with absolute values may lead to misinterpretation of CBC data. Current Interpretive Data was last revised on 2017. Monocyte pct 10.0 % [facility] Comment: Interpretive Data Percent cell count reference ranges are not reported, since discordance with absolute values may lead to misinterpretation of CBC data. Current Interpretive Data was last revised on 2017. Eosinophil pct 0.1 % [facility] Comment: Interpretive Data Percent cell count reference ranges are not reported, since discordance with absolute values may lead to misinterpretation of CBC data. Current Interpretive Data was last revised on 2017. Basophil pct 0.4 % [facility] Comment: Interpretive Data Percent cell count reference ranges are not reported, since discordance with absolute values may lead to misinterpretation of CBC data. Current Interpretive Data was last revised on 2017. Blood 05/21/2024 3:41 PM JACK [facility] ALL TRADES 05/21/2024 4:06 PM JACK OF ALL TRADES Chelle Elliott MD LAB BLOOD ORDERABLES Final Result [facility] [place] [address] * CBC with auto differential (05/21/2024 3:41 PM JACK OF ALL TRADES) WBC 9.4 3.8 - 9.9 K/cumm Hgb 13.9 13.0 - 17.5 g/dL [facility] Hct 40.0 38.9 - 50.3 % [facility] Plt 291 150 - 400 K/cumm [facility] MPV 9.1 9.1 - 12.3 fL [facility] RBC 4.59 4.30 - 5.80 M/cumm [facility] MCV 87.1 81.3 - 96.4 fL [facility] MCH 30.3 27.1 - 33.3 pg [facility] MCHC 34.8 32.3 - 35.7 g/dL [facility] RDW CV 13.1 11.1 - 14.9 % [facility] RDW SD 41.8 35.7 - 48.1 fL [facility] NRBC abs 0.00 0.00 - 0.01 K/cumm [facility] Blood (Blood, Venous) 05/21/2024 3:41 PM [facility] ALL TRADES 05/21/2024 4:06 PM JACK OF ALL TRADES Marcus Amaya MD LAB BLOOD ORDERABLES F inal Result Performing Organization Address [facility] Co de Phone Number [facility] [place] [address] * Lipase (05/21/2024 3:41 PM JACK OF ALL TRADES) [facility] Lipase 15 10 - 99 Units/L Blood (Blood, Venous) 05/21/2024 3:41 PM [facility] ALL TRADES 05/21/2024 4:03 PM JACK OF ALL TRADES Marcus Amaya MD LAB BLOOD ORDERABLES F inal Result Performing Organization Address [facility] de Phone Number [facility] [place] [address] * (ABNORMAL) Comprehensive metabolic panel (05/21/2024 3:41 PM JACK OF ALL TRADES) [facility] Sodium 136 135 - 145 mmol/L Potassium, pl 3.6 3.3 - 4.9 mmol/L [facility] Chloride 99 97 - 110 mmol/L [facility] CO2 22 22 - 32 mmol/L [facility] Anion gap 15 2 - 15 mmol/L [facility] BUN 22 6 - 25 mg/dL [facility] Creatinine 1.37(H) 0.80 - 1.30 mg/dL [facility] Glucose 92 70 - 199 mg/dL [facility] Comment: Interpretive Data Fasting glucose >/= 126 [...] 2022. Calcium 10.3 8.5 - 10.3 mg/dL [facility] Bilirubin, total 1.5(H) 0.1 - 1.2 mg/dL [facility] Protein, pl 8.5 6.5 - 8.5 g/dL [facility] Albumin 5.1(H) 3.5 - 5.0 g/dL [facility] Alk phos 99 40 - 130 Units/L [facility] ALT 19 7 - 55 Units/L [facility] AST 21 10 - 50 Units/L [facility] Blood 05/21/2024 3:41 PM [facility] ALL TRADES 05/21/2024 4:03 PM [facility] OF ALL TRADES us Marcus Amaya MD LAB BLOOD ORDERABLES F inal Result [facility] [place] [address] * ECG 12-LEAD (05/21/2024 2:24 PM JACK OF ALL TRADES) Narrative [facility] - 05/21/2024 2:24 PM JACK OF ALL TRADES Huy Mack MD ? 05/21/2024 ??2:27 PM ECG 12 lead Date/Time: 05/21/2024 2:24 PM Performed by: Huy Mack MD Authorized by: Chlele Elliott MD ?? Rate: ??ECG rate: ??82 [...] in the ED Huy Mack MD 05/21/24 1421 Marcus Amaya MD ECG ORDERABLES Final Result Performing Organization Address City/State/[facility] Co de Phone Number [facility] * ECG 12-LEAD (05/19/2024 11:55 PM JACK OF ALL TRADES) Narrative [facility] - 05/19/2024 11:55 PM JACK OF ALL TRADES Deniz Huitron MD ? 05/19/2024 11:56 PM [...] up: further workup in the ED ?? us Casandra Lock MD ECG ORDERABLES Final Result [facility] * XR Chest PA Lateral 2 Views (05/19/2024 10:34 PM JACK OF ALL TRADES) Anatomical Region Laterality Modality Body, Chest N/A Computed Radiogr aphy 05/19/2024 10:4 3 PM JACK OF ALL TRADES Impressions 05/20/2024 9:03 AM JACK OF ALL TRADES Comparison is made to 07/05/2023. Thoracic aorta [...] Collins Wills M.D. Narrative 05/20/2024 9:03 AM JACK OF ALL TRADES EXAMINATION: 2 view chest radiograph Procedure Note [...] CTA Chest Abdomen Pelvis (05/19/2024 10:20 PM JACK OF ALL TRADES) Anatomical Region Laterality Modality Body N/A Computed Tomogra phy 05/19/2024 10:5 1 PM JACK OF ALL TRADES Impressions 05/20/2024 9:06 AM JACK OF ALL TRADES 1. ??Unchanged thoracoabdominal aortic dissection status post [...] Collins Wills M.D. Narrative 05/20/2024 9:06 AM JACK OF ALL TRADES EXAMINATION: ??CT ANGIOGRAPHY OF THE CHEST, ABDOMEN [...] it. Electronically signed by: Collins Wills M.D. Cristobal Waldrop MD IMG CT PROCEDURES F inal Result * Troponin I high-sensitivity series (baseline, 2hr, 4hr, 6hr) (05/19/2024 9:12 PM JACK OF ALL TRADES) Pathologist [facility] Trop I hs 4 <=35 ng/L Comment: Interpretive Data For further [facility] resources including the diagnostic algorithm and an aid in interpretation, copy and paste this link: [email or web address] Current Interpretive Data last revised 2019. Blood 05/19/2024 9:12 PM JACK OF ALL TRADES 05/19/2024 9:28 PM JACK OF ALL TRADES us Cristobal Waldrop MD LAB BLOOD ORDERABLE S Final Result [facility] Department [place] [address] * eGFR (05/19/2024 9:12 PM JACK OF ALL TRADES) [facility] eGFR 85 >=60 mL/min/1. 73 m2 Comment: [...] last reviewed 2021. Blood 05/19/2024 9:12 PM JACK OF ALL TRADES 05/19/2024 9:28 PM JACK OF ALL TRADES Cristobal Waldrop MD LAB BLOOD ORDERABLE S Final Result [facility] [place] [address] * (ABNORMAL) Differential, auto (05/19/2024 9:12 PM JACK OF ALL TRADES) Neutrophil abs 7.6(H) 1.5 - 6.5 K/cumm Imm gran abs 0.1 0.0 - 0.1 K/cumm [facility] Lymphocyte abs 0.9 0.8 - 3.3 K/cumm [facility] Monocyte abs 0.5 0.2 - 0.8 K/cumm [facility] Eosinophil abs 0.0 0.0 - 0.5 K/cumm [facility] Basophil abs 0.0 0.0 - 0.1 K/cumm [facility] Neutrophil pct 84.3 % [facility] Comment: Interpretive Data Percent cell count reference ranges are not reported, since discordance with absolute values may lead to misinterpretation of CBC data. Current Interpretive Data was last revised on 2017. Imm gran pct 0.7 % [facility] Comment: Interpretive Data Percent cell count reference ranges are not reported, since discordance with absolute values may lead to misinterpretation of CBC data. Current Interpretive Data was last revised on 2017. Lymphocyte pct 9.4 % [facility] Comment: Interpretive Data Percent cell count reference ranges are not reported, since discordance with absolute values may lead to misinterpretation of CBC data. Current Interpretive Data was last revised on 2017. Monocyte pct 5.3 % [facility] Comment: Interpretive Data Percent cell count reference ranges are not reported, since discordance with absolute values may lead to misinterpretation of CBC data. Current Interpretive Data was last revised on 2017. Eosinophil pct 0.1 % [facility] Comment: Interpretive Data Percent cell count reference ranges are not reported, since discordance with absolute values may lead to misinterpretation of CBC data. Current Interpretive Data was last revised on 2017. Basophil pct 0.2 % [facility] Comment: Interpretive Data Percent cell count reference ranges are not reported, since discordance with absolute values may lead to misinterpretation of CBC data. Current Interpretive Data was last revised on 2017. Blood 05/19/2024 9:12 PM JACK OF ALL TRADES 05/19/2024 9:28 PM JACK OF ALL TRADES Cristobal Waldrop MD LAB BLOOD ORDERABLE S Final Result [facility] Department [place] [address] * CBC with auto differential (05/19/2024 9:12 PM JACK OF ALL TRADES) WBC 9.0 3.8 - 9.9 K/cumm Hgb 13.7 13.0 - 17.5 g/dL [facility] Hct 39.7 38.9 - 50.3 % [facility] Plt 293 150 - 400 K/cumm [facility] MPV 9.2 9.1 - 12.3 fL [facility] RBC 4.53 4.30 - 5.80 M/cumm [facility] MCV 87.6 81.3 - 96.4 fL [facility] MCH 30.2 27.1 - 33.3 pg [facility] MCHC 34.5 32.3 - 35.7 g/dL [facility] RDW CV 13.2 11.1 - 14.9 % [facility] RDW SD 42.5 35.7 - 48.1 fL [facility] NRBC abs 0.00 0.00 - 0.01 K/cumm [facility] Blood 05/19/2024 9:12 PM JACK OF ALL TRADES 05/19/2024 9:28 PM JACK OF ALL TRADES us Cristobal Waldrop MD LAB BLOOD ORDERABLE S Final Result Performing Organization Address [facility] de Phone Number [facility] [place] [address] * aPTT (05/19/2024 9:12 PM JACK OF ALL TRADES) aPTT 34 28 - 38 sec Comment: Interpretive Data Heparin therapeutic range: 66.0 - 100.0 seconds. Range based on correlation with therapeutic heparin activity range of 0.3 - 0.7 Units/mL. Current interpretive data was last revised on 2023. Blood 05/19/2024 9:12 PM JACK OF ALL TRADES 05/19/2024 9:32 PM JACK OF ALL TRADES Cristobal Waldrop MD LAB BLOOD ORDERABLE S Final Result Performing Organization Address [facility] de Phone Number [facility] [place] [address] * (ABNORMAL) Protime-INR (05/19/2024 9:12 PM JACK OF ALL TRADES) PT 14.2(H) 9.7 - 13.0 sec INR 1.31(H) 0.90 - 1.20 [facility] Comment: Interpretive data Oral anticoagulant therapeutic ranges: Venous thromboembolism prophylaxis or treatment: 2.0-3.0 CARDIOLOGY Standard range: 2.0-3.0 High-intensity range: 2.5-3.5 Refer to indication-specific guidelines for appropriate target ranges for prosthetic heart valve replacement. Current interpretive data was last revised on 2019. Blood 05/19/2024 9:12 PM JACK OF ALL TRADES 05/19/2024 9:32 PM JACK OF ALL TRADES Cristobal Waldrop MD LAB BLOOD ORDERABLE S Final Result Performing Organization Address [facility] de Phone Number [facility] [place] [address] * Type and screen (05/19/2024 9:12 PM JACK OF ALL TRADES) Ellen, indirect Negative ABO Rh A Positive [facility] Blood 05/19/2024 9:12 PM JACK OF ALL TRADES 05/19/2024 9:22 PM JACK OF ALL TRADES Narrative [facility] - 05/19/2024 10:07 PM JACK OF ALL TRADES Has the patient had Daratumumab or Isatuximab in the past 6 months?->Unknown Cristobal Waldrop MD LAB BLOOD BANK TEST ORDERABLES Final Result [facility] [place] [address] * (ABNORMAL) Comprehensive metabolic panel (05/19/2024 9:12 PM JACK OF ALL TRADES) Pathologist [facility] Sodium 139 135 - 145 mmol/L Potassium, pl 3.9 3.3 - 4.9 mmol/L [facility] Chloride 100 97 - 110 mmol/L [facility] CO2 21(L) 22 - 32 mmol/L [facility] Anion gap 18(H) 2 - 15 mmol/L [facility] BUN 18 6 - 25 mg/dL [facility] Creatinine 1.17 0.80 - 1.30 mg/dL [facility] Glucose 108 70 - 199 mg/dL [facility] Comment: Interpretive Data Fasting glucose >/= 126 [...] 2022. Calcium 10.2 8.5 - 10.3 mg/dL [facility] Bilirubin, total 1.2 0.1 - 1.2 mg/dL [facility] Protein, pl 8.7(H) 6.5 - 8.5 g/dL [facility] Albumin 5.1(H) 3.5 - 5.0 g/dL [facility] Alk phos 105 40 - 130 Units/L [facility] ALT 23 7 - 55 Units/L [facility] AST 18 10 - 50 Units/L [facility] Blood 05/19/2024 9:12 PM JACK OF ALL TRADES 05/19/2024 9:28 PM JACK OF ALL TRADES us Cristobal Waldrop MD LAB BLOOD ORDERABLE S Final Result [facility] [place] [address] * POC ISTAT (03/07/2024 12:09 PM CDT) Creatinine, POC, bld 1.1 0.6 - 1.3 mg/dL POC Device Number [id number] [facility] POC Performer [id number] [facility] Blood 03/07/2024 12:0 9 PM CDT 03/07/2024 12:09 PM CDT us Leo Manzano MD LAB BLOOD ORDERABLES Final Result [facility] [id number] [place] [address] * CTA Chest Abdomen Pelvis (03/07/2024 12:05 [...] Electronically signed by: Ag Davila M.D., Ph.D us Leo Manzano MD IMG CT PROCEDURES Final Re sult * Imaging SI Joint Injection Bilateral ([id number]) (02/28/2024 11:27 AM CDT) Narrative [facility] - 02/28/2024 11:28 AM CDT The images from this study are not interpreted by Radiology. ??Please refer to the physician's procedure / OR operative note. us Adrianne Adams MD PhD IMG PAIN MGMT PROCEDURE S Final Result Performing Organization Address City/[facility]/ZIP Co de Phone Number [email or web address] * Hepatitis C antibody Blood (09/06/2023 11:15 AM CDT) Hep C Ab Nonreactive Nonreactive Comment:Antibodies to HCV no t detected. Does NOT exclude the possibility of recent exposure to HCV. Current interpretive data was last revised on 22 Blood 09/06/2023 11:1 5 AM CDT 09/06/2023 11:34 AM CDT Clyde Nelson MD LAB MICROBIOLOGY - GENERAL [place]OPE[place] Edited Result - Final [facility] [place] [address] from Last 3 Months or Most Recently Relevant to Health Maintenance Insurance [employer] [facility] [employer] [facility] Advance Directives For more information, please contact: [phone] * Full Code (Latest Code Status on [...] Relationship Healthcare Agent Relationshi p Communication Meron Blankenship Mother Health Care Agent Care Teams Algebra Teacher Relationship Specialty Start Date End Date Carl Strickland MD [address] [place] [address] [address] [place] [address] PCP - General Internal Medicine 06/06/23 Leo Manzano MD [id number] [place] [address] Surgeon Vascular Surgery 05/16/23
--- OUTSIDE RECORDS SUMMARY | 2024-05-30 05:34 | XMS_ITS | Continuity of Care Document ---
Author Organization [facility] (Adult [facility]) Address [address] [place] [address] Care Team Providers Care Paste Maker Name Role Phone [facility] Urologist WARNER MILLAN Senior Interactive Producer FAUSTINO HERRERA Vascular Surgeon Assessment Encounter Date Assessment Date Assessment LastModified by Organization Details LastModified Time 02/23/2024 02/23/2024 1st FM APPT WITH THIS PROVIDER - DUAL FM/BH PT (initial BH) - 45yo M presents to establish medical care. Prev Dr. Strickland. FU: 03/30. How is back pain? review labs. [email or web address] Not available 03/11/2024 20:35:14 Plan of Treatment Reminders Order Date Submit Date Provider Last Modified By Organization Details Last Modified Time Details Appointments ANY 30 2024 02:30P M MARCELA CLEVELAND PA-C Not available Not available Not available NEW PATIENT 60 2024 09:30A M Payal lopez NP Not available Not available Not available Lab CBC w/ manual diff 2023 024 adavisma [facility], [address], [address], [place], [address], 04/05/2024 17:08:53 anemia panel 2023 024 CHERRI [facility], [address], [address], [place], [address], 03/08/2024 11:16:48 PT/PTT, plasma 2023 024 CHERRI [facility], [address], [address], [place], [address], 03/08/2024 11:16:52 CMP, serum or plasma 2023 024 CHERRI [facility], [address], [address], [place], [address], 03/08/2024 11:16:50 Referral None recorded . Procedures None recorded . Surgeries None recorded . Imaging None recorded . Medication Orders None recorded . Patient Targets Encounter Date Encounter Id Patient Goals Patient Target Last Modified By Organization Details Last Modified Time to reduce chronic back pain [email or web address] Not available 03/11/2024 20:34:18 Patient Instructions Encounter Date Encounter Id Patient Instructions Last Modified By Organization Details Last Modified Time 02/23/2024 [id number] Reduce THC use [email or web address] Not avai lable 03/11/2024 20:34:01 FU: 03/30. How is back pain? review labs. Note reviewed. Discussed with Nurse practitioner. Radha Vail. 03/26/24 john Not available 03/26/2024 09:38:03 Reason for Referral None Reported. Results Created Date Observation Date Name Description Value Unit Range Abnormal Flag Note LastModifiedBy Organization Detail LastModifiedTime 05/19/20 24 05/19/2024 CT, abdom en + pelvi s, w/ contr ast No observ ation record ed. oajao [facility] [address] [place], [address], 05/21/2024 07:12:39 05/19/20 24 05/19/2024 CT, angio gram, abdom en + pelvi s, w/ contr ast No observ ation record ed. [email or web address] [place], [address], 05/21/2024 10:58:36 Result Notes None recorded. Problems Name Problem SNOMED Code Status Onset Date Resolution Date Notes Provider Name and Address Organization Details Recorded Time Vitiligo 33239753 Active 2020 Carl Strickland MD Attn: Daryn medina,[address] [place], [address], [facility] 4 20:08:14 Depressive disorder 76923240 Active 2016 Carl Strickland MD Attn: Daryn medina,[address] [place], [address], [facility] 4 20:08:14 History of head injury 926443426 Active 2020 Carl Strickland MD Attn: Daryn medina,[address] [place], [address], [facility] 4 20:08:13 Headache 39955126 Active 2020 Carl Strickland MD Attn: Daryn medina,[address] [place], [address], [facility] 4 20:08:14 Increased blood pressure 66556443 Active 2020 Carl Strickland MD Attn: Daryn medina,[address] [place], [address], [facility] 4 20:08:14 History of calculus of kidney 962113329 Active 2020 Carl Strickland MD Attn: Daryn medina,[address] [place], [address], [facility] 4 20:08:14 Fracture of hand 06510423 Active 2020 Carl Strickland MD Attn: Daryn medina,[address] [place], [address], [facility] 4 20:08:14 Influenza vaccination declined 573373713 Active 2023 Carl Strickland MD Attn: Daryn medina[address] [place], [address], [place] [facility] 4 20:08:14 SARS-CoV-2 vaccination declined 7496456124 Active 2023 Carl Strickland MD Attn: Joseemmie medina,[address] [place], [address], [place] [facility] 4 20:08:13 Essential hypertensio n 64616544 Active 2023 Carl Strickland MD Attn: Joseemmie medina,[address] [place], [address], [place] [facility] 4 20:08:14 Dissection of aortic arch 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 8 Active Carl Strickland MD Attn: Daryn adam,[address] [place], [address], [place] [facility] 4 20:08:14 Chest pain 16681488 Active Carl Strickland MD Attn: Daryn medina,[address] [place], [address], [place] [facility] 4 20:08:14 Chronic pain syndrome 765831170 Active 2023 Carl Strickland MD Attn: Daryn adam,[address] [place], [address], [place] [facility] 4 20:46:46 Neuropathy 542861719 Active 2023 Carl Strickland MD Attn: Daryn medina,[address] [place], [address], [place] [facility] 4 20:46:48 Physical decondition ing 8507938643617 2 Active 2023 Carl Strickland MD Attn: Daryn adam,[address] [place], [address], [place] [facility] 4 20:46:53 Chronic back pain 253948497 Active 2023 Carl Strickland MD Attn: Daryn medina,[address] [place], [address], [facility] 4 20:46:54 Renal insufficien cy 629487800 Active 2023 Carl Strickland MD Attn: Daryn medina,[address] [facility], [place], [address], [facility] 4 20:51:24 Complex posttraumat ic stress disorder 140426350 Active 2023 SERINA MICHAEL Attn: Daryn medina,[address] [facility], [place], [address], [facility] 4 19:57:21 Difficulty controlling anger 498087451 Active 2023 SERINA MICHAEL Attn: Daryn medina,[address] [facility], [place], [address], [facility] 4 19:57:23 Mood disorder 87788234 Active 2023 SERINA MICHAEL Attn: Daryn medina,[address] [facility], [place], [address], [facility] 4 19:57:25 Persistent insomnia 179036933 Active 2023 SERINA MICHAEL Attn: Daryn medina,[address] [facility], [place], [address], [facility] 4 18:51:00 Problem Notes None recorded. Procedures Surgical History Date Name Laterality Status Provider Name and Address Organization Details Recorded Time 07/04/19 24 cystoscopic ureteric stent procedure completed Carl Strickland MD Attn: Accounting,[address] [facility], [place], [address], [facility] 07/13/2023 20:39:29 lithotripsy completed Carl Strickland MD Attn: Accounting,[address] [facility], [place], [address], [facility] 07/13/2023 11:13:47 transcatheter aortic valve implantation completed Carl Strickland MD Attn: Accounting,[address] [facility], [place], [address], [facility] 07/13/2023 11:31:14 Imaging Results None recorded. Procedure Notes None recorded. Medical Equipment None Reported. Allergies Allergen ID Allergen Name Allergen Category Reaction Reaction Severity Criticality Documentation Date Start Date Code Code System Note Provider Name and Address Organization Details Recorded Time 16590602 lisinopri l medicatio n facial swelling Not available Not available 07/13/2023 36544 RxNorm cough , lip swell ing Carl Strickland MD Attn: Accountin g,[address] [facility], [place], [address], [facility] 4 20:08:02 841926 amoxicill in medicatio n rash Not available Not available 07/13/2023 723 RxNorm Carl Strickland MD Attn: Accountin g,[address] [facility], [place], [address], [facility] 4 20:08:02 Medications Name Sig Start Date [...] Updated DateTime 4 175.26 cm 31.9 kg/m2 95120.9 5 g 98 % 98 % 72 /min 98 [degF] 110 mm[Hg] 60 mm[Hg] Madison Hernandez MA [facility] 4 10:35:38 Date Recorded Body height Body mass index (BMI) Body weight Oxygen saturation Oxygen saturation in Arterial blood by Pulse oximetry Heart rate Systolic blood pressure Diastolic blood pressure Provider Name and Address Organization Details Last Updated DateTime 4 175.26 cm 31.5 kg/m2 27295.1 7 g 99 % 99 % 70 /min 136 mm[Hg] 90 mm[Hg] Kelsey Bearden MA [facility] 4 10:37:21 Social History Question Answer Notes LastModified by Organizat ion Details LastModified Time Tobacco Smoking Status Never Smoker Mellisa Burns MA null, [facility] 07/02/2020 08:39:57 Do You Have An Advance [...] Anxious, Or Unable To Sleep At Night)? [id number] Information not available 02/23/2024 Do You Use [...] Atrial Fibrillation N High Blood Pressure Y Depression N COPD N Blood Clots N Anxiety Disorder Y Muscle, Joint, or Bone Problems N Acid Reflux (GERD) N Cancer N Stroke N High Cholesterol N Liver Disease N Headaches Y Kidney or Bladder Problems Y Thyroid Problems N GI Problems N Skin Problems Y Anemia N Heart Attack (RI) N Diabetes N Seizures/Epilepsy N Asthma N Allergies N Hepatitis N Osteoporosis N Heart Failure N Immunizations Vaccine Type Date Status Note Provider Nam e and Address Organization Details Recorded Time MMR 10/21/1993 [place] [facility] 07/13/2023 10:49:06 OPV 1992 MAN[place] [facility] 07/13/2023 10:49:06 OPV 1992 MAN[place] [facility] 07/13/2023 10:49:06 OPV 1992 [place] [facility] 07/13/2023 10:49:06 OPV 02/23/1994 [place] [facility] 07/13/2023 10:49:07 DTP-Hib 1992 [place] [facility] 07/13/2023 10:49:07 DTP-Hib 1992 [place] [facility] 07/13/2023 10:49:07 DTP-Hib 1992 [place] [facility] 07/13/2023 10:49:07 DTP-Hib 02/23/1994 [place] [facility] 07/13/2023 10:49:07 Hep B, adolescent or pediatric 1992 MAN[place] [facility] 07/13/2023 10:49:07 Hep B, adolescent or pediatric 03/11/1993 completed Stalin Lee MA robbie, [place] - [facility] 07/13/2023 10:49:07 Hep B, adolescent or pediatric 1992 completed Stalin Lee MA robbie, [place] - [facility] 07/13/2023 10:49:07 Past Encounters Encounter ID Performer Location Encounter Start Date Encounter Closed Date Diagnosis/Indication Diagnosis SNOMED-CT Code Diagnosis ICD10 Code [id number] Radha Vail MD [facility] [address] [place] [address] 02/23/2024 10:24:15 03/28/2024 13:28:59 Mood disorder 95531470 F39 Difficulty controlling anger 104293411 R45.4 Complex po sttraumatic stress disorder 559146522 F43.10 Persistent insomnia 1919 37574 G47.09 Hypercholesterolemia 136 16773 E78.00 Laboratory test result abnormal 179391408 R89.9 History of calculus of kidney 175566674 Z87.442 Chronic low back pain 27 4216951 M54.50 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 0611581698 85355 Z98.890 Essential hypertension 18792222 I10 History of fracture 3910 00641 Z87.81 Prediabetes 806317513 R7 3.03 Diet education 87930410 Z71.3 Long-term current use of cannabis 1239998040 98669 F12.10 Health Concerns Section Related Observation LastModified by Organization Detai ls LastModified Time None Recorded Concern Status LastModified by Organization Details LastModified Time None Recorded Payers Encounter Date Sequence Insurance Name Policy Number Policy Mon Covered Member ID Mon Member ID Guarantor Name 02/23/2024 1 [employer] BETTER HEALTH OF [place] PEREZ ON OR AFTER 04/29/2020 (MEDICAID REPLACEMENT - HMO) Eriberto Chau [id number] Eriberto Chau Notes Date Note Type Note Provider Name and Address Organization Details Recorded Time 02/23/2024 text/html 1st FM APPT WITH THIS [...] before Jun 20. 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 - Substance Use: THC daily, 2 cokes/d; Hx of cocaine abuse - Reviewed baseline labs: slight anemia, trigl/LDL high, preDM CARE TEAM:Parole Director: [facility]; Cristobal Chopra MD prescribing amlodipine, hydralazine 50mgSurgeon: warner millan prescribed labetalolol 200mgOhman, Faustino Mcdonough MD [address] [place] [address] [facility] - FU for chronic back pain Radha Vail MD Attn: Accounting,[address], [place], [address], [place] [facility] 03/26/2024 09:38:07 03/14/2024 text/html 45yo M presents for FU. Last seen by 10-26-23. Hx of depression, BP, aggression/anger, penitentiary, [aortic dissection, GFR=33, CR 2.59 (09/28)]; one [...] Dr. Strickland since 09/29/23Psychiatrist? Dr. Farris at [facility]: couple years ago (prescribed alprazolam, took off klonopin)Therapist/Cabral pport Gps (ekvng ALTMAN)? 21yo in [place] d/t being stressed d/t being father with 3 different women; had [address]? Dr. StricklandNephrologist? appt in apr. says he just saw and they don't know why is kidney funct is low. GFR=33, CR 2.59 (09/28) GFR=33, CR 2.59 (09/28) GFR=33, CR 2.59 (09/28) (may be d/t kidney stones, PCP referred to vp data on 10/12) Medi cationsAllergies: lexapro (lip swelling); [...] not take it when got out of penitentiary (didn't like the way it made him [...] a compliment. Still struggles with focus. States vp data does not know why his kidneys are poor. Hard to sleep d/t racing thoughts. Does not know what meds he takes or dose d/t son's grandma handling his meds for him. Admits he forgot to take lamictal for 5 days (non consecutive). (takes lamictal late and forgets it, maybe less over the top anger episodes. 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 Stated he was tired today.) Current GOALS: PHQ9 - 09/05/16GAD7 - MDQ - 5 + clustered + serious [borderline] Depression: 2/ 2/0/10 with 10 being the worst (last 01/12/24)Anxiety: sometimes -02/06 with 10 being the worstAnger/Irritabili ty: 09/03/03/08 with 10 being the worst - always [...] dreams? taking meds consistently?-------- ADDITION AL INFORMATION 24: 45yo M presents for FU. Last seen by 10-26-23. Hx of depression, BP, aggression/anger, penitentiary, [aortic dissection, GFR=33, CR 2.59 (09/28)]; one [...] Dr. Strickland since 09/29/23Psychiatrist? Dr. Farris at [facility]: couple years ago (prescribed alprazolam, took off klonopin)Therapist/Cabral pport Gps (eSilvanag ANUPAMA)? 21yo in [place] d/t being stressed d/t being father with 3 different women; had [address]? Dr. StricklandNephrologist? appt in apr. says he just saw and they don't know why is kidney funct is low. GFR=33, CR 2.59 (09/28) GFR=33, CR 2.59 (09/28) GFR=33, CR 2.59 (09/28) (may be d/t kidney stones, PCP referred to vp data on 10/12) Medi cationsAllergies: lexapro (lip swelling); [...] from seroquel Previous medication trials: klonopin, alprazolam; Antonioaamir did not take it when got out of penitentiary (didn't like the way it made him [...] a compliment. Still struggles with focus. States vp data does not know why his kidneys are poor. Hard to sleep d/t racing thoughts. Does not know what meds he takes or dose d/t son's grandma handling his meds for him. Admits he forgot to take lamictal for 5 days (non consecutive). (takes lamictal late and forgets it, maybe less over the top anger episodes. 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. 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 Stated [...] by 10-26-23. Hx of depression, BP, aggression/anger, penitentiary, [aortic dissection, GFR=33, CR 2.59 (09/28)]; one [...] Dr. Strickland since 09/29/23Psychiatrist? Dr. Farris at [facility]: couple years ago (prescribed alprazolam, took off klonopin)Therapist/Cabral pport Gps (eSilvanag ANUPAMA)? 21[place] in [place] d/t being stressed d/t being father with 3 different women; had 3 sessionsPCP? Dr. StricklandNephrologist? appt in dec. says he just saw and they don't know why is kidney funct is low. GFR=33, CR 2.59 (09/28) GFR=33, CR 2.59 (09/28) GFR=33, CR 2.59 (09/28) (may be d/t kidney stones, PCP referred to vp data on 10/12) Medi cationsAllergies: lexapro (lip swelling); [...] not take it when got out of penitentiary (didn't like the way it made him [...] a compliment. Still struggles with focus. States vp data does not know why his kidneys are poor. Hard to sleep d/t racing thoughts. Does not know what meds he takes or dose d/t son's grandma handling his meds for him. Admits he forgot to take lamictal for 5 days (non consecutive). (takes lamictal late and forgets it, maybe less over the top anger episodes. 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. 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 Stated he was tired today.) Current GOALS: PHQ9 - 9/17GAD7 - 13/7MDQ - 5 + clustered + serious [borderline] Depression: 2/010 with 10 being the worstAnxiety: sometimes /8-02/06 with 10 being the worstAnger/Irritabili ty: 12/06/09 [...] linear thinking doing on latuda? -------ADDITIONAL INFORMATION 11-09-23: 45yo M presents for FU. Last seen by 10-26-23. Hx of depression, BP, aggression/anger, penitentiary, [aortic dissection, GFR=33, CR 2.59 (09/28)]; one [...] Dr. Strickland since 09/29/23Psychiatrist? Dr. Farris at [facility]: couple years ago (prescribed alprazolam, took off klonopin)Therapist/Cabral pport Gps (eSilvanag ANUPAMA)? 21yo in [place] d/t being stressed d/t being father with 3 different women; had 3 sessionsPCP? Dr. StricklandNephrologist? appt in apr. says he just saw and they don't knwo why is kidney funct is low. GFR=33, CR 2.59 (09/28) GFR=33, CR 2.59 (09/28) GFR=33, CR 2.59 (09/28) (may be d/t kidney stones, PCP referred to vp data on 10/12) Medi cationsAllergies: lexapro (lip swelling); amoxicillin (rash)Current medications: Compliant: - amitriptyline 0.5mg PO HS - helps fall asleep Dr. Strickland- quentiapine 25mg PO HS - makes him feel tired : Pt states it is not working for his mood- lamictal 25mg PO qd Current SEs?: tired from seroquel Previous medication trials: klonopin, alprazolam; Iyv did not take it when got out of penitentiary (didn't like the way it made him feel slow since he was used to feeling angry and still wanted to)- - - - - -How is lamictal working for anger?Assess for BPD. When is PCP FU? nephro appt? next appt in apr Obtain labs. STATES...takes lamictal late and forgets it, maybe less over the top anger episodes. 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 Stated he was tired today. Current GOALS: PHQ9 - 9/17GAD7 - 13/7MDQ - 5 + clustered + serious [borderline] Depression: 20 with 10 being the worstAnxiety: sometimes 8-02/06 with 10 being the worstAnger/Irritabili ty: 12/06/09 [...] years ago. Hx of depression, BP, aggression/anger, penitentiary, [aortic dissection, GFR=33, CR 2.59 (09/28)]; one [...] be d/t kidney stones, PCP referred to vp data on 10/12) Anger issues: States When I [...] in Feb., then dissection in Apr. On 3 had aorta dissection and felt like [...] Dr. Strickland since 09/29/23Psychiatrist? Dr. Farris at [facility]: couple years ago (prescribed alprazolam, took off klonopin)Therapist/Cabral pport Gps (ekvng ALTMAN)? 21yo in [place] d/t being stressed d/t being father with [...] not take it when got out of penitentiary (didn't like the way it made him [...] spends time with her, SO's mom in [place] Hx of 5yrs in penitentiary tells him to let things go or [...] CR 2.59 5/2, GFR=33 [facility], 7 children. Previous to [...] MilitaryLegal issues: not curr and Hx of penitentiary DrugsTHC smoke multiple times a day; helps with sleep, calmer, helps let things go more; Caffeine: soda 2 cokes/d Hx of cocaine (powder), pain pills,EtOH__I don't like the way I am when I am drunk and feelings come back and I don't have control, Cocaine (crack, powder) Trauma[place] Raised by? Mom saw biodad sometimes and now he is best friend but you don't want to be around him all the time cause he does his own thing , left home at 16yo d/t mom treated him different from the others (7 kids) and was more strict and withdrew from him because he reminded her of his father and went to [facility] for a while then she . [...] for sleep or mood).- Labs: CR 2.59 5/, GFR=33. Order baseline labs at next visit.- FU: 11/08 1100. How is lamictal working for anger? Assess for BPD. When is PCP FU? nephro appt? Obtain labs. STALIN LOMAX-INDIA Khalil, SERINA Attn: Accounting[address] [place], [address], [facility] 03/28/2024 02:01:31
--- OUTSIDE RECORDS SUMMARY | 2024-05-30 05:34 | XMS_ITS | Encounter Summary ---
Author Organization [facility] Healthcare Address [address] [place] [address] Care Team Providers Care Defensive Line Coach Name Role Phone Leo Manzano MD Unavailable [phone] Carl Strickland MD Primary Care Provider Reason for Visit * Reason Comments Abdominal Pain Encounter Details Date Type Department Care Team (Late st Contact Info) Description 05/19/2024 9:40 PM CLASSIFIED ADVERTISING CLERK - 05/20/2024 1:34 AM [facility] Emergency [facility] Emergency Department [address] [place] [id number] Casandra Lock MD 1 [facility] [address] [place] [address] Dank Montoya MD [address] [place] [address] Abdominal pain (Primary Dx); Chronic bilateral low back pain without sciatica; Abdominal aortic aneurysm dissection (HCC) Discharge Disposition: Discharge to home or self care Social History Tobacco Use Types Packs/Day Years Used Date Smoking Tobacco: Never Smokeless Tobacco: Never Alcohol Use Standard Drinks/Week Comments Not Currently 0 (1 standard drink = 0.6 oz pur e alcohol) [facility] Utilities Answer Date Recorded In the past 12 months has e viseto, gas, oil, or water whodoyou threatened to shut off services in your home? Patient declined 10/02/2023 Social Connection and Isolation Panel [NHANES] A nswer Date Recorded In a typical week, how many times do you talk on the phone with family, friends, or neighbors? Patient declined 10/02/2023 How often do you get togethe r with friends or relatives? Patient declined 10/02/2023 How often do you attend muslim or synagogue serv ices? Patient declined 10/02/2023 Do you belong to any clubs o r organizations such as muslim groups, unions, fraternal or athletic groups, or school groups? Patient declined 10/02/2023 How often do you attend meet ings of the clubs or organizations you belong to? Patient declined 10/02/2023 Are you , , di vorced, , never , or living with a partner? Patient declined 10/02/2023 AUDIT-C Answer Date Recorded Q1: How often [...] housing, medical care, and heating? Somewhat hard 10/02/2023 PHQ-2 Answer Date Recorded PHQ-2 Total Score (If total score is 3 or more points, staff should administer the PHQ-9) 0 06/24/2023 Hunger Vital Sign Answer Date Recorded Within the past 12 months, y ou worried that your food would run out before you got the money to buy more. Patient declined Within the past 12 months, t he food you bought just didn't last and you didn't have money to get more. Patient declined PRAPARE - Transportation Answer Date Re corded In the past 12 months, has l ack of transportation kept you from medical appointments or from getting medications? Patient declined 10/02/2023 In the past 12 months, has l ack of transportation kept you from meetings, work, or from getting things needed for daily living? Patient declined 10/02/2023 Housing Stability Vital Sign [...] place to sleep or slept in a senior living (including now)? Patient declined 10/02/2023 Personal Safety Answer Date Recorded Have you ever been in or are you currently in a harmful physical or emotional relationship or is someone making you feel afraid or unsafe? Denies 05/21/2024 Sex and Gender Information Value Date Recorded Sex Assigned at Not on file Legal Sex Male 3:42 AM CLASSIFIED ADVERTISING CLERK Gender Identity Not on file Sexual Orientation Straight 06/12/2023 11 :43 PM CLASSIFIED ADVERTISING CLERK documented as of this encounter Last Filed Vital Signs Vital Sign Reading Time Taken Comments Blood Pressure 110/76 05/20/2024 1:30 AM CLASSIFIED ADVERTISING CLERK Pulse 83 05/20/2024 1:30 AM CLASSIFIED ADVERTISING CLERK Temperature 36.8 ??C (98.2 ??F) 05/19/2024 8:23 PM CS T Respiratory Rate 16 05/20/2024 1:00 AM CLASSIFIED ADVERTISING CLERK Oxygen Saturation 98% 05/20/2024 1:30 AM CLASSIFIED ADVERTISING CLERK Inhaled Oxygen Concentration - - Weight 99.3 kg (219 lb) 05/19/2024 8:23 PM CLASSIFIED ADVERTISING CLERK Height 172.7 cm (5' 8 ) 05/19/2024 8:23 PM CLASSIFIED ADVERTISING CLERK Body Mass Index 33.3 05/19/2024 8:23 PM CLASSIFIED ADVERTISING CLERK documented in this encounter Discharge Instructions * Discharge Instructions* Andrew Alcala MD - 05/20/2024 12:28 AM CLASSIFIED ADVERTISING CLERK You were seen in the hospital for abdominal pain and back pain. Back pain can be caused by multipleetiologies but you have had back pain for which you were seeing a pain medicine doctor. In the emergency department we wanted to make sure that you not have any life-threatening cause of your back pain and aortic aneurysms for which we did a CT imaging of your abdomen. CT imaging did not show any problems in your previous surgical sites and stents are in place. Given that your pain is more well controlled please follow up with your brain Mets and Dr. Leach care and your primary care doctorfor continuity care. Please do not hesitate to return to hospital if you have worsening chest pain,abdominal pain, back pain, numbness, tingling, shortness of breath. SIFIED ADVERTISING CLERK SIFIED ADVERTISING CLERK * Attachments The following attachments cannot be sent through Care Everywhere. * Back Pain (Acute or Chronic) (Faroese) documented in this encounter Medications at Time of Discharge acetaminophen (TYLENOL) 500 mg tablet Take 2 tablets (1,000 mg total) by mouth every 6 (six) hours as needed for pain, headaches or fever amLODIPine (NORVASC) 10 mg tablet Take 1 tablet (10 mg total) by mouth daily 30 tablet 11 4 06/25/19 25 capsaicin (ZOSTRIX) 0.025 % cream Apply 1 Application topically 2 (two) times a day as needed for pain dicyclomine (BENTYL) 20 mg tablet Take 1 tablet (20 mg total) by mouth every 6 (six) hours as needed (For abdominal pain) 120 tablet 4 09/09/19 25 hydrALAZINE (APRESOLINE) 50 mg tablet Take 1 tablet (50 mg total) by mouth 3 (three) times a day 90 tablet 4 06/24/19 25 hydrocortisone (ANUSOL-HC) 2.5 % rectal cream Insert into the rectum 2 (two) times a day as needed for hemorrhoids 30 g 4 hyoscyamine (LEVSIN) 0.125 mg SL tabletIndications:U reteral stent discomfort Take 1 tablet (0.125 mg total) by mouth every 4 (four) hours as needed (Bladder spasms/discomfort ) 30 tablet 3 4 labetaloL (NORMODYNE,TRANDATE ) 200 mg tablet Take 2 tablets (400 mg total) by mouth 2 (two) times a day 360 tablet 3 4 lamoTRIgine (LaMICtal) 25 mg tablet Take 1 tablet (25 mg total) by mouth daily lurasidone (LATUDA) 20 mg tablet Take 1 tablet every day by oral route with meal(s). meloxicam (MOBIC) 7.5 mg tabletIndications:S acroiliitis (HCC) Take 1 tablet (7.5 mg total) by mouth daily 30 tablet 4 ondansetron ODT (ZOFRAN-ODT) 4 mg disintegrating tablet Take 1 tablet (4 mg total) by mouth every 8 (eight) hours as needed for nausea or vomiting 10 tablet 3 oxyBUTYnin (DITROPAN) 5 mg tabletIndications:U reteral stent discomfort Take 1 tablet (5 mg total) by mouth 3 (three) times a day as needed (Bladder spasms/discomfort ) 30 tablet 3 4 pravastatin (PRAVACHOL) 10 mg tablet 1 tablet (10 mg total) 4 senna-docusate (PERICOLACE) 8.6-50 mg Take 2 tablets by mouth 2 (two) times a day To prevent constipation 40 tablet 3 tamsulosin (FLOMAX) 0.4 mg extended release capsule TAKE 1 CAPSULE BY MOUTH DAILY *TAKE WHILE STENT IS IN PLACE AND FOR THREE DAYS AFTER STENT REMOVAL amitriptyline (ELAVIL) 25 mg tablet Take 1 tablet (25 mg total) by mouth nightly 30 tablet 1 4 05/29/20 24 pregabalin (LYRICA) 100 mg capsuleIndications: Fibromyalgia,Postop erative Acute Pain,neuropathic pain Take 1 capsule (100 mg total) by mouth 2 (two) times a day 60 capsule 5 4 05/29/20 24 QUEtiapine (SEROquel) 50 mg tablet Take 1 tablet (50 mg total) by mouth nightly 30 tablet 1 4 05/29/20 24 documented as of this encounter Discharge Disposition Disposition Code Departure Means Destination Comment s Discharge to home or self care documented in this encounter ED Notes * Andrew Alcala MD - 05/19/2024 10:01 PM CST HPI Chief Complaint Patient presents with ??? 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 Patient states that he woke up this morning approximately 5:00 a.m. with sharp abdominal pain nose diffuse radiating all the wayto mid posterior back. Patient has had nausea and vomiting at this time, no trauma, states it is similar to his previous dissection. Denies any recent drug use or IV drug use. Patient was seen in [facility] in [place] where today of CT abdomen and was discharged home. Patient History: Patient Active Problem List Diagnosis Date Noted ??? Sacroiliitis ([facility]) 02/26/2024 ??? Weight loss 10/03/2023 ??? Pyelonephritis 10/02/2023 ??? Hypokalemia 10/02/2023 ??? ANGI (acute kidney injury) ([facility]) 10/02/2023 ??? Syncope 10/02/2023 ??? Ureteral calculi 09/27/2023 ??? 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HCC) 09/06/2023 ??? Back pain at L4-L5 level 08/23/2023 ??? PFO (patent foramen ovale) 07/05/2023 ??? Ureteral stone 07/04/2023 ??? Abdominal pain 07/04/2023 ??? Other chronic pain 06/24/2023 ??? Pseudoaneurysm following procedure (CMS/HCC) ([facility]) 06/24/2023 ??? Infrarenal abdominal aortic aneurysm, without rupture ([facility]) 06/13/2023 ??? Polysubstance abuse (CMS/HCC) ([facility]) 06/10/2023 ??? Moderate malnutrition (CMS/HCC) ([facility]) 06/09/2023 ??? Dissection of abdominal aorta (CMS/HCC) ([facility]) 06/03/2023 ??? Urinary retention 05/16/2023 ??? Epistaxis 05/13/2023 ??? Pneumonia 05/13/2023 ??? HTN (hypertension) 05/13/2023 ??? Dissection of thoracoabdominal aorta (CMS/HCC) ([facility]) 05/02/2023 ??? Dissection of aorta, unspecified portion of aorta (HCC) 05/01/2023 Past Medical History: Diagnosis Date ??? Abdominal pain ??? Anxiety ??? Aortic dissection (HCC) ??? Depression ??? Hypertension ??? Kidney stones ??? Memory loss Past Surgical History: Procedure Laterality Date ??? ABDOMINAL AORTIC ANEURYSM REPAIR Family History Problem Relation Age of Onset ??? Depression Mother ??? Anxiety disorder Mother ??? Depression Father ??? Anxiety disorder Sister ??? Depression Sister ??? Depression Brother ??? Anxiety disorder Brother Social History Tobacco Use ??? Smoking status: Never ??? Smokeless tobacco: Never Vaping Use ??? Vaping status: Never Used Substance and Sexual Activity ??? Alcohol use: Not Currently ??? Drug use: Not Currently Types: Marijuana ??? Sexual activity: Defer Social History Social History Narrative ??? Not on file Review of Systems Review of Systems Review of systems as stated above in HPI Physical Exam ED Triage Vitals [05/19/242022] Temp Pulse Resp BP SpO2 36.8 ??C (98.2 ??F) 83 30 (!) 167/104 100 % Temp src Heart Rate Source Patient Position BP Location FiO2 (%) Oral -- -- -- -- Height Height Method Weight Weight Method 1.727 m (5' 8 ) Stated 99.3 kg (219 lb) -- Physical Exam Vitals and nursing note reviewed. Constitutional: General: He is not in acute distress. Appearance: He is well-developed. HENT: Head: Normocephalic and atraumatic. Eyes: Extraocular Movements: Extraocular movements intact. Conjunctiva/sclera: Conjunctivae normal. Cardiovascular: Rate and Rhythm: Regular rhythm. Tachycardia present. Heart sounds: Normal heart sounds. No murmur heard. No friction rub. Pulmonary: Effort: Pulmonary effort is normal. No respiratory distress. Breath sounds: Normal breath sounds. Chest: Chest wall: No tenderness. Abdominal: General: Bowel sounds are normal. There is no distension or abdominal bruit. Palpations: Abdomen is soft. Tenderness: There is generalized abdominal tenderness. There is right CVA tenderness, left CVA tenderness and guarding. Comments: Patient guarding, pain out of proportion, soft abdomen, no rigidity, no fluid waves, distention, no abdominal mass or pulsatile mass noted. Musculoskeletal: General: No swelling. Cervical back: Neck supple. Skin: General: Skin is warm and dry. Capillary Refill: Capillary refill takes less than 2 seconds. Findings: No erythema or rash. Neurological: General: No focal deficit present. Mental Status: He is alert. Psychiatric: Mood and Affect: Mood normal. MDM 34-year-old past medical history of abdominal aortic dissection with TEVAR in May 18, 2023 andextension and stent placement in June 18, 2023 presenting with abdominal pain out of proportion,nausea vomiting pain radiating to the lower back, no palpitations starting at 5:00 a.m. this morning. Patient is not tachycardic, afebrile, elevated blood pressure 167 systolic. Physical exam as above with pain out of proportion on soft abdomen radiating to lower back no abdominal bruit or abdominal pulsatile mass, no tenderness to palpation on the chest chest clear to auscultation. Differential diagnosis for this patient included Surendra aneurysm/dissection, mesenteric ischemia, ACS. Initial labsshows a CMP within normal limits with an elevated anion gap of 18, near normal electrolytes, CBC within normal limits, tropes within normal limits. The patient was given Dilaudid for pain control. CTabdomen pelvis angiogram ordered to evaluate aortic aneurysm or mesenteric ischemia. CT chest abdomen pelvis angiogram within normal limits. Patient's abdominal pain well-controlled currently. Patient requested Toradol for back pain prior to discharge and will follow up with his pain medication doctor afterwards. Medical Decision Making Amount and/or Complexity of Data Reviewed Radiology: ordered. ECG/medicine tests: ordered. Risk Prescription drug management. Attending Summary of Care ED Course as of 05/20/24 0124 Time: 05/19 2255 Comment: CT: 1. 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 No acute findings in the chest, abdomen, or pelvis. 2. 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 By: Andrew Alcala MD Time: 05/19 4744 Comment: Pt received second dose of dilaudid and had saturation drop to 70s with good wave form, placed on nasla cannula and back up to 95% and stable By: Andrew Alcala MD Time: 05/19 828 Comment: I have assumed care of this patient. 34 yom PMH of type B aortic dissection, recurrent renal colic here with abdominal pain. CT of chest abd and pelvis unremarkable / no acute changes. Plan for symptomatic control of symptoms and reassess. PO challenge. By: Dank Montoya MD Time: 05/20 0030 Comment: Patient was re-evaluated, abdominal pain has subsided, endorsing back pain was given Toradol. We will follow up with the primary care doctor and pain medicine doctor further control of his pain. Endorsing subsiding of his symptoms that brought him into the ED. By: Andrew Alcala MD Time: 05/20 0123 Comment: Patient was able to tolerate fluids, pain is completely subsided, patient will be discharged. By: Andrew Alcala MD No diagnosis found. Andrew Alcala MD Resident 05/20/24 0719 Cosigned by Casandra Lock MD at 05/20/2024 2:33 PM CLASSIFIED ADVERTISING CLERK SIFIED ADVERTISING CLERK SIFIED ADVERTISING CLERK Associated attestation - Casandra Lock MD - 05/20/2024 2:33 PM CLASSIFIED ADVERTISING CLERK I have seen and examined the patient on 05/19/2024. I agree with the findings and plan of care as documented in the resident's note. * Marina Maher RN - 05/19/2024 9:40 PM CST Bed: ED2-20 Expected date: Expected time: Means of arrival: Comments: [facility] (when clean) Marina Maher, BRIA 05/19/240 SIFIED ADVERTISING CLERK * Jamie Robert, BRIA - 05/19/2024 8:21 PM CST Pt to ED for back, chest, & abdominal pain since 0500 today. Also endorsing vomiting. Seen at [facility], was told to come to [place]. PMHx aortic dissection around this time last year. Tachypnea, HTN, all other VSS in triage. A&O x4, ambulatory. Appears in significant distress, states he left [facility] because there's nothing they could do to help me, they told me to come here. SIFIED ADVERTISING CLERK documented in this encounter Miscellaneous Notes * ED Procedure Note - Deniz Huitron MD - 05/19/2024 11:55 PM CLASSIFIED ADVERTISING CLERK Associated Order(s): ECG 12 lead Procedure ECG 12 lead Date/Time: 05/19/2024 11:55 PM Performed by: Deniz Huitron MD Authorized by: Casandra Lock MD Rate: ECG rate: 85 beats per minute ECG rate assessment: normal Rhythm: Rhythm: sinus rhythm and sinus arrhythmia Ectopy: Ectopy: none QRS: QRS axis: Normal QRS intervals: Normal Conduction: Conduction: normal ST segments: ST segments: Normal T waves: T waves: non-specific Previous ECG: Previous ECG: Compared to current Date of previous EC07/26/2023 Similarity: No change Interpretation: Interpretation: No significant change Recommended Follow-up: Recommended follow up: further workup in the ED Deniz Huitron MD 05/19/24 3614 SIFIED ADVERTISING CLERK documented in this encounter Plan of Treatment Not on file documented as of this encounter Goals Goal Patient Goal Type Associated Problems Recent Progress Patient-Stated? Author CCM Chronic Pain Care Plan Chronic Care Management No change(05/16 2:51 PM CLASSIFIED ADVERTISING CLERK) No Rita Landa RN Note: Problem: Chronic Pain Goals: 1. Minimize further functional decline 2. Maximize quality of life 3. Control pain Strategies: - Activity/exercise program recommendation - Conservative stepwise pain medicine strategy with multi-disciplinary approach - Recommend healthy lifestyle strategies and compensatory methods as needed documented as of this encounter Procedures Procedure Name Priority Date/Time Associated Diagnosis Comments ECG 12-LEAD STAT 05/19/2024 11:55 PM CLASSIFIED ADVERTISING CLERK XR CHEST PA LATERAL 2 VIEWS ED 05/19/2024 10:34 PM CLASSIFIED ADVERTISING CLERK CTA CHEST ABDOMEN PELVIS ED 05/19/2024 10:20 PM CLASSIFIED ADVERTISING CLERK TROPONIN I HIGH-SENSITIVITY SERIES (BASELINE, 2HR, 4HR, 6HR) STAT 05/19/2024 9:12 PM CLASSIFIED ADVERTISING CLERK EGFR STAT 05/19/2024 9:12 PM CLASSIFIED ADVERTISING CLERK DIFFERENTIAL AUTO Timed 05/19/2024 9:1 2 PM CLASSIFIED ADVERTISING CLERK CBC WITH AUTO DIFFERENTIAL Timed 05/19/2024 9:12 PM CLASSIFIED ADVERTISING CLERK APTT STAT 05/19/2024 9:12 PM CLASSIFIED ADVERTISING CLERK PROTIME-INR STAT 05/19/2024 9:12 PM CLASSIFIED ADVERTISING CLERK TYPE AND SCREEN STAT 05/19/2024 9:12 PM CLASSIFIED ADVERTISING CLERK COMPREHENSIVE METABOLIC PANEL STAT 05/19/2024 9:12 PM CLASSIFIED ADVERTISING CLERK documented in this encounter Results * ECG 12-LEAD (05/19/2024 11:55 PM CLASSIFIED ADVERTISING CLERK) Narrative [facility] - 05/19/2024 11:55 PM CLASSIFIED ADVERTISING CLERK Deniz Huitron MD ? 05/19/2024 11:56 PM [...] up: further workup in the ED ?? Casandra Lock MD ECG ORDERABLES Final Result [facility] * XR Chest PA Lateral 2 Views (05/19/2024 10:34 PM CLASSIFIED ADVERTISING CLERK) Anatomical Region Laterality Modality Body, Chest N/A Computed Radiogr aphy 05/19/2024 10:4 3 PM CLASSIFIED ADVERTISING CLERK Impressions 05/20/2024 9:03 AM CLASSIFIED ADVERTISING CLERK Comparison is made to 07/05/2023. Thoracic aorta [...] Collins Wills M.D. Narrative 05/20/2024 9:03 AM CLASSIFIED ADVERTISING CLERK EXAMINATION: 2 view chest radiograph Procedure Note [...] CTA Chest Abdomen Pelvis (05/19/2024 10:20 PM CLASSIFIED ADVERTISING CLERK) Anatomical Region Laterality Modality Body N/A Computed Tomogra phy 05/19/2024 10:5 1 PM CLASSIFIED ADVERTISING CLERK Impressions 05/20/2024 9:06 AM CLASSIFIED ADVERTISING CLERK 1. ??Unchanged thoracoabdominal aortic dissection status post [...] Collins Wills M.D. Narrative 05/20/2024 9:06 AM CLASSIFIED ADVERTISING CLERK EXAMINATION: ??CT ANGIOGRAPHY OF THE CHEST, ABDOMEN [...] IMG CT PROCEDURES F inal Result * eGFR (05/19/2024 9:12 PM CLASSIFIED ADVERTISING CLERK) eGFR 85 >=60 mL/min/1. 73 m2 Comment: [...] last reviewed 2021. Blood 05/19/2024 9:12 PM CLASSIFIED ADVERTISING CLERK 05/19/2024 9:28 PM CLASSIFIED ADVERTISING CLERK us Cristobal Waldrop MD LAB BLOOD ORDERABLE S Final Result [facility] Department [place] [address] * (ABNORMAL) Differential, auto (05/19/2024 9:12 PM CLASSIFIED ADVERTISING CLERK) Neutrophil abs 7.6(H) 1.5 - 6.5 K/cumm Imm gran abs 0.1 0.0 - 0.1 K/cumm [facility] Lymphocyte abs 0.9 0.8 - 3.3 K/cumm [facility] Monocyte abs 0.5 0.2 - 0.8 K/cumm [facility] Eosinophil abs 0.0 0.0 - 0.5 K/cumm [facility] Basophil abs 0.0 0.0 - 0.1 K/cumm [facility] Neutrophil pct 84.3 % [facility] Comment: Interpretive Data Percent cell count reference ranges are not reported, since discordance with absolute values may lead to misinterpretation of CBC data. Current Interpretive Data was last revised on 2017. Imm gran pct 0.7 % [facility] Comment: Interpretive Data Percent cell count reference ranges are not reported, since discordance with absolute values may lead to misinterpretation of CBC data. Current Interpretive Data was last revised on 2017. Lymphocyte pct 9.4 % [facility] Comment: Interpretive Data Percent cell count reference ranges are not reported, since discordance with absolute values may lead to misinterpretation of CBC data. Current Interpretive Data was last revised on 2017. Monocyte pct 5.3 % [facility] Comment: Interpretive Data Percent cell count reference ranges are not reported, since discordance with absolute values may lead to misinterpretation of CBC data. Current Interpretive Data was last revised on 2017. Eosinophil pct 0.1 % [facility] Comment: Interpretive Data Percent cell count reference ranges are not reported, since discordance with absolute values may lead to misinterpretation of CBC data. Current Interpretive Data was last revised on 2017. Basophil pct 0.2 % [facility] Comment: Interpretive Data Percent cell count reference ranges are not reported, since discordance with absolute values may lead to misinterpretation of CBC data. Current Interpretive Data was last revised on 2017. Blood 05/19/2024 9:12 PM CLASSIFIED ADVERTISING CLERK 05/19/2024 9:28 PM CLASSIFIED ADVERTISING CLERK Cristobal Waldrop MD LAB BLOOD ORDERABLE S Final Result Performing Organization Address City/[facility]/ZIP Co de Phone Number [facility] Department [place] [address] * Troponin I high-sensitivity series (baseline, 2hr, 4hr, 6hr) (05/19/2024 9:12 PM CLASSIFIED ADVERTISING CLERK) Trop I hs 4 <=35 ng/L Comment: Interpretive Data For further hscTnI resources including the diagnostic algorithm and an aid in interpretation, copy and paste this link: [email or web address]/[email or web address] Current Interpretive Data last revised 2019. Blood 05/19/2024 9:12 PM CLASSIFIED ADVERTISING CLERK 05/19/2024 9:28 PM CLASSIFIED ADVERTISING CLERK Cristobal Waldrop MD LAB BLOOD ORDERABLE S Final Result Performing Organization Address City/[facility] Co de Phone Number [facility] Department [place] [address] * Type and screen (05/19/2024 9:12 PM CLASSIFIED ADVERTISING CLERK) Ellen, indirect Negative ABO Rh A Positive [facility] Blood 05/19/2024 9:12 PM CLASSIFIED ADVERTISING CLERK 05/19/2024 9:22 PM CLASSIFIED ADVERTISING CLERK Narrative [facility] - 05/19/2024 10:07 PM CLASSIFIED ADVERTISING CLERK Has the patient had Daratumumab or Isatuximab in the past 6 months?->Unknown Cristobal Waldrop MD LAB BLOOD BANK TEST ORDERABLES Final Result Performing Organization Address [facility] de Phone Number [facility] [place] [address] * aPTT (05/19/2024 9:12 PM CLASSIFIED ADVERTISING CLERK) Pathologist [facility] aPTT 34 28 - 38 sec Comment: Interpretive Data Heparin therapeutic range: 66.0 - 100.0 seconds. Range based on correlation with therapeutic heparin activity range of 0.3 - 0.7 Units/mL. Current interpretive data was last revised on 2023. Blood 05/19/2024 9:12 PM CLASSIFIED ADVERTISING CLERK 05/19/2024 9:32 PM CLASSIFIED ADVERTISING CLERK Cristobal Waldrop MD LAB BLOOD ORDERABLE S Final Result Performing Organization Address [facility] de Phone Number [facility] [place] [address] * (ABNORMAL) Protime-INR (05/19/2024 9:12 PM CLASSIFIED ADVERTISING CLERK) PT 14.2(H) 9.7 - 13.0 sec INR 1.31(H) 0.90 - 1.20 [facility] Comment: Interpretive data Oral anticoagulant therapeutic ranges: Venous thromboembolism prophylaxis or treatment: 2.0-3.0 CARDIOLOGY Standard range: 2.0-3.0 High-intensity range: 2.5-3.5 Refer to indication-specific guidelines for appropriate target ranges for prosthetic heart valve replacement. Current interpretive data was last revised on 2019. Blood 05/19/2024 9:12 PM CLASSIFIED ADVERTISING CLERK 05/19/2024 9:32 PM CLASSIFIED ADVERTISING CLERK us Cristobal Waldrop MD LAB BLOOD ORDERABLE S Final Result [facility] Department [place] [address] * (ABNORMAL) Comprehensive metabolic panel (05/19/2024 9:12 PM CLASSIFIED ADVERTISING CLERK) Sodium 139 135 - 145 mmol/L Potassium, pl 3.9 3.3 - 4.9 mmol/L [facility] Chloride 100 97 - 110 mmol/L [facility] CO2 21(L) 22 - 32 mmol/L [facility] Anion gap 18(H) 2 - 15 mmol/L [facility] BUN 18 6 - 25 mg/dL [facility] Creatinine 1.17 0.80 - 1.30 mg/dL [facility] Glucose 108 70 - 199 mg/dL [facility] Comment: Interpretive Data Fasting glucose >/= [...] 2022. Calcium 10.2 8.5 - 10.3 mg/dL [facility] Bilirubin, total 1.2 0.1 - 1.2 mg/dL [facility] Protein, pl 8.7(H) 6.5 - 8.5 g/dL [facility] Albumin 5.1(H) 3.5 - 5.0 g/dL [facility] Alk phos 105 40 - 130 Units/L [facility] ALT 23 7 - 55 Units/L [facility] AST 18 10 - 50 Units/L [facility] Blood 05/19/2024 9:12 PM CLASSIFIED ADVERTISING CLERK 05/19/2024 9:28 PM CLASSIFIED ADVERTISING CLERK Cristobal Waldrop MD LAB BLOOD ORDERABLE S Final Result Performing Organization Address [facility]/ZIP Co de Phone Number [facility] [place] [address] * CBC with auto differential (05/19/2024 9:12 PM CLASSIFIED ADVERTISING CLERK) [facility] WBC 9.0 3.8 - 9.9 K/cumm Hgb 13.7 13.0 - 17.5 g/dL [facility] Hct 39.7 38.9 - 50.3 % [facility] Plt 293 150 - 400 K/cumm [facility] MPV 9.2 9.1 - 12.3 fL [facility] RBC 4.53 4.30 - 5.80 M/cumm [facility] MCV 87.6 81.3 - 96.4 fL [facility] MCH 30.2 27.1 - 33.3 pg [facility] MCHC 34.5 32.3 - 35.7 g/dL [facility] RDW CV 13.2 11.1 - 14.9 % [facility] RDW SD 42.5 35.7 - 48.1 fL [facility] NRBC abs 0.00 0.00 - 0.01 K/cumm [facility] Blood 05/19/2024 9:12 PM CLASSIFIED ADVERTISING CLERK 05/19/2024 9:28 PM CLASSIFIED ADVERTISING CLERK Cristobal Waldrop MD LAB BLOOD ORDERABLE S Final Result Performing Organization Address City/[facility]/ZIP Co de Phone Number [facility] [place] [address] documented in this encounter Visit Diagnoses Diagnosis Abdominal pain- Primary Abdominal pain, unspecified site Chronic bilateral low back pain without sciatica Abdominal aortic aneurysm dissection (HCC) Dissection of aorta, abdominal documented in this encounter Administered Medications Inactive Administered Medications - up to 3 most recent administrations Medication Order MAR Action Action Date Dose Rate Site HYDROmorphone (DILAUDID) injection 1 mg 1 mg, intravenous, Administer over 2 Minutes, Every 4 hours PRN, 1st line for pain, Starting on 05/19/24 at 2153 Given 05/19/2024 10:00 PM CLASSIFIED ADVERTISING CLERK 1 mg HYDROmorphone (DILAUDID) injection 1 mg 1 mg, intravenous, Administer over 2 Minutes, Once, On 05/19/24 at 2239, For 1 dose Given 05/19/2024 10:45 PM CLASSIFIED ADVERTISING CLERK 1 mg ioversoL (OPTIRAY 350) syringe 100 mL 100 mL, intravenous, Once in imaging, contrast, Starting on 05/19/24 at 2208, For 1 dose Contrast Given 05/19/2024 10:15 PM CLASSIFIED ADVERTISING CLERK 95 mL ketorolac (TORADOL) 30 mg/mL injection 30 mg 30 mg, intravenous, Once, On 05/20/24 at 0031, For 1 dose, For Adult IV push, administer over 15 seconds Given 05/20/2024 12:57 AM CLASSIFIED ADVERTISING CLERK 30 mg ondansetron (ZOFRAN) injection 4 mg 4 mg, intravenous, Administer over 2 Minutes, Once, On 05/19/24 at 2113, For 1 dose, Indications: Nausea, VomitingIndications:Nausea,Vom iting Given 05/19/2024 9:16 PM CLASSIFIED ADVERTISING CLERK 4 mg documented in this encounter Active and Recently Administered Medications Times are shown in CLASSIFIED ADVERTISING CLERK. Scheduled Medication Order 05/18/2024 05/19/2024 05/20/2024 HYDROmorphone (DILAUDID) injection 1 mg (COMPLETED) 1 mg, intravenous, Administer over 2 Minutes, Once, On 05/19/24 at 2239, For 1 dose 5 (Given - Provider: Sally Coles) ketorolac (TORADOL) 30 mg/mL injection 30 mg (COMPLETED) 30 mg, intravenous, Once, On 05/20/24 at 0031, For 1 dose, For Adult IV push, administer over 15 seconds 0057 (Given - Provid er: Viktoriya Cedeno RN) ondansetron (ZOFRAN) injection 4 mg (COMPLETED) 4 mg, intravenous, Administer over 2 Minutes, Once, On 05/19/24 at 2113, For 1 dose, Indications: Nausea, Vomiting 2115 (Given - Provider: Linda Clarke, RN) PRN Medication Order 05/18/2024 05/19/2024 05/20/2024 HYDROmorphone (DILAUDID) injection 1 mg 1 mg, intravenous, Administer over 2 Minutes, Every 4 hours PRN, 1st line for pain, Starting on 05/19/24 at 2153 2200 (Given - Provider: Karlee Coles) ioversoL (OPTIRAY 350) syringe 100 mL (COMPLETED) 100 mL, intravenous, Once in imaging, contrast, Starting on 05/19/24 at 2208, For 1 dose 2214 (Contrast Given - Provider: Cleveland Montague RT) documented in this encounter Orders Nursing Count Last Ordered Date First Orde red Date MISCELLANEOUS NURSING CARE ORDER (SPECIFY) 1 05/19/2024 IV Count Last Ordered Date First Orde red Date INSERT PERIPHERAL IV 1 05/19/2024 documented in this encounter Care Teams Defensive Line Coach Relationship Specialty Start Date End Date Carl Strickland MD [address] [facility] [address] [place] [address] PCP - General Internal Medicine 06/06/23 Leo Manzano MD [address] [facility] [id number] [place] [address] Surgeon Vascular Surgery 05/16/23 documented as of this encounter
--- OUTSIDE RECORDS SUMMARY | 2024-05-30 05:34 | XMS_ITS | Encounter Summary ---
Author Organization [facility] Healthcare Address [address] [place] [address] Care Team Providers Care Sales Service Coordinator Name Role Phone Leo Manzano MD Unavailable [phone] Carl Strickland MD Primary Care Provider Reason for Visit * Reason Comments Abdominal Pain Vomiting Encounter Details Date Type Department Care Team (Late st Contact Info) Description 05/21/2024 4:17 PM DIRECT SUPPORT WORKER - 05/21/2024 8:27 PM [facility] Emergency [facility] Emergency Department [address] [place] [address] Marcus Amaya MD [address] [facility] [address] [place] [address] Nausea and vomiting, unspecified vomiting type (Primary Dx) Discharge Disposition: Discharge to home or self care Social History Tobacco Use Types Packs/Day Years Used Date Smoking Tobacco: Never Smokeless Tobacco: Never Alcohol Use Standard Drinks/Week Comments Not Currently 0 (1 standard drink = 0.6 oz pur e alcohol) [facility] Utilities Answer Date Recorded In the past 12 months has [employer] electric, gas, oil, or water company threatened [...] declined 10/02/2023 How often do you attend quaker or nondenominational serv ices? Patient declined 10/02/2023 Do you belong to any clubs o r organizations such as quaker groups, unions, fraternal or athletic groups, or [...] place to sleep or slept in a snf (including now)? Patient declined 10/02/2023 Personal Safety Answer Date Recorded Have you ever been in or are you currently in a harmful physical or emotional relationship or is someone making you feel afraid or unsafe? Denies 05/21/2024 Sex and Gender Information Value Date Recorded Sex Assigned at Not on file Legal Sex Male 3:42 AM DIRECT SUPPORT WORKER Gender Identity Not on file Sexual Orientation Straight 06/12/2023 11 :43 PM DIRECT SUPPORT WORKER documented as of this encounter Last Filed Vital Signs Vital Sign Reading Time Taken Comments Blood Pressure 113/72 05/21/2024 2:35 PM DIRECT SUPPORT WORKER Pulse 92 05/21/2024 2:16 PM DIRECT SUPPORT WORKER Temperature 36.7 ??C (98.1 ??F) 05/21/2024 2:16 PM CS T Respiratory Rate 18 05/21/2024 2:16 PM DIRECT SUPPORT WORKER Oxygen Saturation 100% 05/21/2024 2:16 PM DIRECT SUPPORT WORKER Inhaled Oxygen Concentration - - Weight 99.3 kg (219 lb) 05/21/2024 2:16 PM DIRECT SUPPORT WORKER Height 175.3 cm (5' 9 ) 05/21/2024 2:16 PM DIRECT SUPPORT WORKER Body Mass Index 32.34 05/21/2024 2:16 PM DIRECT SUPPORT WORKER documented in this encounter Discharge Instructions * Discharge Instructions* Marcus Amaya MD - 05/21/2024 8:14 PM DIRECT SUPPORT WORKER Please return if you have pain that is not controlled with medications at home, unable to keep fooddown, have new fevers or chills, or any other concerning symptoms. CT SUPPORT WORKER * Attachments The following attachments cannot be sent through Care Everywhere. * Vomiting (Adult) (Tamazight) documented in this encounter Medications at Time [...] documented in this encounter ED Notes * Kindra Cummins RN - 05/21/2024 4:41 PM CST Bed: ED3-[facility] Expected date: Expected time: Means of arrival: Comments: 3-5 Kindra Cummins RN 05/21/[address] SUPPORT WORKER * Marcus Amaya MD - 05/21/2024 4:31 PM CST Images from the original note were not included. History of Present Illness The patient, with a history of aortic dissection and chronic back pain, presents with severe abdominal and back pain that started on Tuesday. He reports that the pain is in both the stomach and back, describing it as a 'dark fucking pain' in the stomach and severe pain in the back. The pain is associated with vomiting of yellow contents and decreased appetite, as he has not eaten for two days. He also reports decreased urination and some incontinence. He has experienced tingling and numbness in the left leg. He denies any recent alcohol or drug use, except for marijuana which he has not usedfor the past three to four days. He denies any fevers. The patient had previously been evaluated at two other hospitals where he received pain medication and was told that he might have exacerbated his chronic pain. He was prescribed Tylenol, Zofran, andIbuprofen, but he has not taken these medications. Physical Exam ABDOMEN: Abdominal tenderness upon palpation with voluntary guarding. Diffuse tenderness noted along the back. MUSCULOSKELETAL: Good strength in dorsiflexion and plantar flexion of the foot. Good strength in knee extension and flexion. Good strength in hip abduction and adduction. NEUROLOGICAL: Differential sensation noted on bilateral lower extremities, subjectiv Results Assessment & Plan Abdominal and Back Pain Severe, diffuse abdominal and back pain with associated nausea and vomiting. History of aortic dissection with lumbar drains placed for spinal ischemia. No focal tenderness on examination, but voluntary guarding present. Pain is in waves and patient reports some urinary incontinence and left leg numbness. -Administer Dilaudid for pain and Haldol for nausea. -Start IV fluids. -Order labs including CBC, CMP, and urinalysis to evaluate for infection or kidney stone. -Consider further imaging based on lab results and symptom progression. - Pain improved with IV pain medicine, Dilaudid and fluids here. - Tolerated p.o. intake Left Leg Numbness Reports subjective numbness in left leg with preserved strength. History of spinal ischemia. -No new focal neurologic deficits observed. No signs of acute motor weakness Contains text generated by Shaun Impression: Abdominal pain Marcus Amaya MD 05/21/[address] SUPPORT WORKER * Radha Leung RN - 05/21/2024 2:17 PM CST Pt arrives to ED for nausea and vomiting since Tuesday. Hx of type b aortic dissection in 04/2023.Pt was seen on 05/19/24 for same abdominal pain and nausea. Prior to that pt [facility] SUPPORT WORKER documented in this encounter Miscellaneous Notes * ED Procedure Note - Huy Mack MD - 05/21/2024 2:24 PM CSTAssociated Order(s): ECG 12 lead Procedure ECG 12 lead Date/Time: 05/21/2024 2:24 [...] info: Lateral T wave inversions more pronounced than prior Interpretation: Interpretation: No acute injury pattern Recommended Follow-up: Recommended follow up: further workup in the ED Huy Mack MD 05/21/[address] SUPPORT WORKER * ED Pre-Arrival Note - Sherri Munson RN - 05/21/2024 2:10 PM DIRECT SUPPORT WORKER Pre-Arrival Note Pt to ED BIBEMS for abdominal pain that radiates to back. Pt seen at [place] for similar thing overthe weekend. Pt Endorsing nausea and vomiting. EMS gave 4mg of Zofran in route. Sherri Munson RN CT SUPPORT WORKER documented in this encounter Plan of Treatment Not on file documented as of this encounter Goals Goal Patient Goal Type Associated Problems Recent Progress Patient-Stated? Author CCM Chronic Pain Care Plan Chronic Care Management No change(05/16 2:51 PM DIRECT SUPPORT WORKER) No Rita Landa, BRIA Note: Problem: Chronic Pain Goals: 1. Minimize further functional decline 2. Maximize quality of life 3. Control pain Strategies: - Activity/exercise program recommendation - Conservative stepwise pain medicine strategy with multi-disciplinary approach - Recommend healthy lifestyle strategies and compensatory methods as needed documented as of this encounter Procedures Procedure Name Priority Date/Time Associated Diagnosis Comments POCT RAPID HIV ANTIBODY [facility] SCREENING-PAPA ELIGIBLE Routine 05/21/2024 7:35 PM DIRECT SUPPORT WORKER OXYCODONE CONFIRMATION, URINE Routine 05/21/2024 5:34 PM DIRECT SUPPORT WORKER FENTANYL CONFIRMATION, MS URINE Routine 05/21/2024 5:34 PM DIRECT SUPPORT WORKER DRUGS OF ABUSE SCREEN, URINE WITH REFLEX CONFIRMATION Routine 05/21/2024 5:34 PM DIRECT SUPPORT WORKER URINALYSIS AND REFLEX TO MICROSCOPIC STAT 05/21/2024 5:34 PM DIRECT SUPPORT WORKER AMPHETAMINE, URINE, CONFIRMATION Routine 05/21/2024 5:34 PM DIRECT SUPPORT WORKER URINALYSIS, MICROSCOPIC ONLY STAT 05/21/2024 5:34 PM DIRECT SUPPORT WORKER SEPSIS LACTATE WITH REFLEX STAT 05/21/2024 4:33 PM DIRECT SUPPORT WORKER EGFR STAT 05/21/2024 3:41 PM DIRECT SUPPORT WORKER DIFFERENTIAL AUTO STAT 05/21/2024 3:4 1 PM DIRECT SUPPORT WORKER CBC WITH AUTO DIFFERENTIAL STAT 05/21/2024 3:41 PM DIRECT SUPPORT WORKER LIPASE STAT 05/21/2024 3:41 PM DIRECT SUPPORT WORKER COMPREHENSIVE METABOLIC PANEL STAT 05/21/2024 3:41 PM DIRECT SUPPORT WORKER ECG 12-LEAD STAT 05/21/2024 2:24 PM DIRECT SUPPORT WORKER documented in this encounter Results * POCT Rapid HIV Antibody [facility] Screening-[place] Eligible (05/21/2024 7:35 PM DIRECT SUPPORT WORKER) [facility] Rapid HIV, POC Negative Negative Lot Number [id number] QC Control Line Acceptable Blood 05/21/2024 7:35 PM DIRECT SUPPORT WORKER Marcus Amaya MD POINT OF CARE TEST ORD ERABLES Final Result * (ABNORMAL) Oxycodone Confirmation, Urine (05/21/2024 5:34 PM DIRECT SUPPORT WORKER) Oxycodone Conf, Ur Confirmed Positive(A) CutOff 50 [...] needed. Performance characteristics were determined by the [facility] in a manner consistent with CLIA requirement and has not been cleared or approved by the U.S. Food and Drug Administration. Current interpretive data was last revised 2020. Urine 05/21/2024 5:34 PM DIRECT SUPPORT WORKER 05/21/2024 5:46 PM DIRECT SUPPORT WORKER Marcus Amaya MD LAB URINE ORDERABLES F inal Result [facility] Department [place] [address] * (ABNORMAL) Fentanyl Confirmation, Urine (05/21/2024 5:34 PM DIRECT SUPPORT WORKER) Fentanyl Conf, Ur Confirmed Positive(A) Cutoff 0.3ng/mL Acetylfentanyl Conf, Ur Does Not Confirm Cutoff 1 ng/mL [facility] Acrylfentanyl Conf, Ur Does Not Confirm Cutoff 1 ng/mL [facility] Furanylfentanyl Conf, Ur Does Not Confirm Cutoff 1 ng/mL [facility] Fentanyl Metabolite (Norfentanyl) Conf, Ur Confirmed Positive(A) CutOff 5 ng/mL [facility] Xylazine MS Does Not Confirm Cutoff 1 ng/mL [facility] Comment: Interpretive Data This test detects the presence or absence of drug compounds using LC Tandem mass spectrometry and is not intended to assess compliance with prescribed medications. While this test is highly specific, false positive and false negative results may occur in very rare circumstances. Contact the laboratory for consultation, if needed. Performance characteristics were determined by the [facility] in a manner consistent with CLIA requirement and has not been cleared or approved by the U.S. Food and Drug Administration. Current interpretive data was last revised 2020. Urine 05/21/2024 5:34 PM DIRECT SUPPORT WORKER 05/21/2024 5:46 PM DIRECT SUPPORT WORKER Marcus Amaya MD LAB URINE ORDERABLES F inal Result Performing Organization Address [facility] Co de Phone Number [facility] [place] [address] * Amphetamine Confirmation, Urine (05/21/2024 5:34 PM DIRECT SUPPORT WORKER) Amphetamine Conf, Ur Does Not Confirm CutOff [...] needed. Performance characteristics were determined by the [facility] in a manner consistent with CLIA requirement and has not been cleared or approved by the U.S. Food and Drug Administration. Current interpretive data was last revised on 2020. Urine 05/21/2024 5:34 PM DIRECT SUPPORT WORKER 05/21/2024 5:46 PM DIRECT SUPPORT WORKER Marcus Amaya MD LAB URINE ORDERABLES F inal Result Performing Organization Address City/[facility]/ZIP Co de Phone Number [facility] [place] [address] * (ABNORMAL) Urinalysis, microscopic only (05/21/2024 5:34 PM DIRECT SUPPORT WORKER) WBC, ur 0-5 0 - 5 /HPF RBC, ur 0-2 0 - 2 /HPF [facility] Epithelial cells, squamous, ur 1-5 0 - 5 /HPF [facility] Bacteria, ur Trace(A) [facility] Mucous, ur Present(A) [facility] Hyaline casts, ur 11-20(A) 0 - 10 /LPF [facility] Urine 05/21/2024 5:34 PM DIRECT SUPPORT WORKER 05/21/2024 5:39 PM DIRECT SUPPORT WORKER Marcus Amaya MD LAB URINE ORDERABLES F inal Result [facility] Department [place] [address] * (ABNORMAL) Drugs of Abuse Screen, Urine with Reflex Confirmation (05/21/2024 5:34 PM DIRECT SUPPORT WORKER) Amphetamine, ur Screen Positive, presumptive (A) CutOff [...] ur Not Detected CutOff 200ng/mL [facility] Comment: Interpretive Data - Barbiturates: ??Samples containing greater than 200 ng/mL secobarbital or other cross-reacting barbiturate compounds are reported as positive. ??False positive and false negative results are possible. Confirmatory testing required for definitive results. Current Interpretive Data was last reviewed 2022. Benzodiazepines, ur Screen Positive, presumptive (A) CutOff 100ng/mL [facility] Comment: Interpretive Data - Benzodiazepines: ??Samples containing greater than 100 ng/mL nordiazepam or other cross-reacting compounds are reported as positive. False positive and false negative results are possible. Confirmatory testing required for definitive results. Current Interpretive Data was last reviewed 2022. Cannabinoids, ur Screen Positive, presumptive (A) CutOff 50 ng/mL [facility] Comment: Interpretive Data - Cannabinoids: ??Samples containing greater than 50 ng/mL delta-9 THC -COOH or other cross-reacting compounds are reported as positive. ??False positive and false negative results are possible. ??Confirmatory testing required for definitive results. Current Interpretive Data was last reviewed 2022. Cocaine, ur Not Detected CutOff 150ng/mL [facility] Comment: Interpretive Data - Cocaine: ??Samples containing greater than 150 ng/mL benzoylecgonine or other cross-reacting compounds are reported as positive. False positive and false negative results are possible. Confirmatory testing required for definitive results. Current Interpretive Data was last reviewed 2022. Fentanyl, Ur Screen Positive, presumptive (A) CutOff 5 ng/mL [facility] Comment: Interpretive Data - Fentanyl: ?? Samples containing greater than 5 ng/mL norfentanyl, fentanyl, or other cross-reacting fentanyl compounds are reported as positive. False positive and false negative results are possible. Confirmatory testing required for definitive results. Current Interpretive Data was last reviewed 2023. Methadone, ur Not Detected CutOff 300ng/mL [facility] Comment: Interpretive Data - Methadone: ??Samples containing greater than 300 ng/mL d,l-methadone or other cross-reacting compounds are reported as positive. ??False positive and false negative results are possible. Confirmatory testing required for definitive results. Current Interpretive Data was last reviewed 2022. Opiates, ur Not Detected CutOff 300ng/mL [facility] Comment: Interpretive Data - Opiates: ??Samples containing greater than 300 ng/mL morphine or other cross-reacting compounds are reported as positive. ??False positive and false negative results are possible. Confirmatory testing required for definitive results. Current Interpretive Data was last reviewed 2022. Oxycodone, ur Screen Positive, presumptive (A) CutOff 100ng/mL [facility] Comment: Interpretive Data - Oxycodone: ??Samples containing greater than 100 ng/mL oxycodone or other cross-reacting compounds are reported as ??positive. ??False positive and false negative results are possible. Confirmatory testing required for definitive results. Current Interpretive Data was last reviewed 2022. Phencyclidine, ur Not Detected CutOff 25 ng/mL [facility] Comment: Interpretive Data - Phencyclidine: ??Samples containing greater than 25 ng/mL phencyclidine or other cross-reacting compounds are reported as positive. ??False positive and false negative results are possible. Confirmatory testing required for definitive results. Current Interpretive Data was last reviewed 2022. Urine Creatinine 357 mg/dL [facility] Comment: Interpretive Data Urine Creatinine: < 10 mg/dL is extremely dilute = or > 10 but < 20 mg/dL is dilute = or > 20 mg/dL is normal Current Interpretive Data was last revised on 2017. Urine 05/21/2024 5:34 PM DIRECT SUPPORT WORKER 05/21/2024 5:46 PM DIRECT SUPPORT WORKER Narrative [facility] - 05/21/2024 6:16 PM DIRECT SUPPORT WORKER Drug of Abuse screening is performed by immunoassay for medical purposes only. ??This is not to be used for Pain Management purposes. ??If Detected, confirmation testing will be performed for Amphetamines, Cocaine, Fentanyl, Methadone, Opiates, Oxycodone or Phencyclidine. Marcus Amaya MD LAB URINE ORDERABLES F inal Result [facility] Department [place] [address] * (ABNORMAL) Urinalysis reflex to microscopic (05/21/2024 5:34 PM DIRECT SUPPORT WORKER) Color, ur Yellow Yellow Clarity, ur Clear Clear [facility] Specific gravity, ur 1.032(H) 1.003 - 1.030 [facility] pH, urine 6.0 [facility] Comment: Interpretive Data ? Urine pH is affected by diet, medications, systemic acid-base disturbances, and renal tubular function. ??pH may affect urinary stone formation. ??For example, urine pH below 6.0 may help reduce the tendency for calcium phosphate stones and pH greater than 6.0 may reduce the tendency for uric acid stone formation. Source: [facility] Current Interpretive Data was last revised on 2017 Protein, ur ql 2+(A) Negative [facility] Glucose, ur ql Negative Negative [facility] Ketones, ur 1+(A) Negative [facility] Bilirubin, ur Negative Negative [facility] Blood, ur Negative Negative [facility] Urobilinogen, ur <2.0 <2.0 mg/dL [facility] Nitrite, ur Negative Negative [facility] Leukocyte esterase, ur Negative Negative [facility] UA reflex comment Reflex to microscopic UA will be performed. [facility] Urine 05/21/2024 5:34 PM DIRECT SUPPORT WORKER 05/21/2024 5:39 PM DIRECT SUPPORT WORKER Marcus Amaya MD LAB URINE ORDERABLES F inal Result Performing Organization Address [facility] Co de Phone Number [facility] [place] [address] * Sepsis Lactate w/ Reflex (05/21/2024 4:33 PM DIRECT SUPPORT WORKER) Sepsis Lactate 1.9 0.7 - 2.0 mmol/L Blood 05/21/2024 4:33 PM DIRECT SUPPORT WORKER 05/21/2024 4:44 PM DIRECT SUPPORT WORKER Marcus Amaya MD LAB BLOOD ORDERABLES F inal Result Performing Organization Address [facility] de Phone Number [facility] [place] [address] * eGFR (05/21/2024 3:41 PM DIRECT SUPPORT WORKER) eGFR 70 >=60 mL/min/1. 73 m2 Comment: [...] last reviewed 2021. Blood 05/21/2024 3:41 PM DIRECT SUPPORT WORKER 05/21/2024 4:03 PM DIRECT SUPPORT WORKER us Chelle Elliott MD LAB BLOOD ORDERABLES Final Result [facility] Department [place] [address] * (ABNORMAL) Differential, auto (05/21/2024 3:41 PM DIRECT SUPPORT WORKER) Pathologist [facility] Neutrophil abs 6.9(H) 1.5 - 6.5 K/cumm Imm gran abs 0.0 0.0 - 0.1 K/cumm [facility] Lymphocyte abs 1.5 0.8 - 3.3 K/cumm [facility] Monocyte abs 0.9(H) 0.2 - 0.8 K/cumm [facility] Eosinophil abs 0.0 0.0 - 0.5 K/cumm [facility] Basophil abs 0.0 0.0 - 0.1 K/cumm [facility] Neutrophil pct 73.5 % [facility] Comment: Interpretive Data Percent cell count reference ranges are not reported, since discordance with absolute values may lead to misinterpretation of CBC data. Current Interpretive Data was last revised on 2017. Imm gran pct 0.3 % [facility] Comment: Interpretive Data Percent cell count reference ranges are not reported, since discordance with absolute values may lead to misinterpretation of CBC data. Current Interpretive Data was last revised on 2017. Lymphocyte pct 15.7 % [facility] Comment: Interpretive Data Percent cell count reference ranges are not reported, since discordance with absolute values may lead to misinterpretation of CBC data. Current Interpretive Data was last revised on 2017. Monocyte pct 10.0 % [facility] Comment: Interpretive Data Percent cell count reference ranges are not reported, since discordance with absolute values may lead to misinterpretation of CBC data. Current Interpretive Data was last revised on 2017. Eosinophil pct 0.1 % [facility] Comment: Interpretive Data Percent cell count reference ranges are not reported, since discordance with absolute values may lead to misinterpretation of CBC data. Current Interpretive Data was last revised on 2017. Basophil pct 0.4 % [facility] Comment: Interpretive Data Percent cell count reference ranges are not reported, since discordance with absolute values may lead to misinterpretation of CBC data. Current Interpretive Data was last revised on 2017. Blood 05/21/2024 3:41 PM DIRECT SUPPORT WORKER 05/21/2024 4:06 PM DIRECT SUPPORT WORKER Chelle Elliott MD LAB BLOOD ORDERABLES Final Result [facility] Department [place] [address] * Lipase (05/21/2024 3:41 PM DIRECT SUPPORT WORKER) Lipase 15 10 - 99 Units/L Blood (Blood, Venous) 05/21/2024 3:41 PM DIRECT SUPPORT WORKER 05/21/2024 4:03 PM DIRECT SUPPORT WORKER Marcus Amaya MD LAB BLOOD ORDERABLES F inal Result [facility] Department [place] [address] * (ABNORMAL) Comprehensive metabolic panel (05/21/2024 3:41 PM DIRECT SUPPORT WORKER) Sodium 136 135 - 145 mmol/L Potassium, pl 3.6 3.3 - 4.9 mmol/L [facility] Chloride 99 97 - 110 mmol/L [facility] CO2 22 22 - 32 mmol/L [facility] Anion gap 15 2 - 15 mmol/L [facility] BUN 22 6 - 25 mg/dL [facility] Creatinine 1.37(H) 0.80 - 1.30 mg/dL [facility] Glucose 92 70 - 199 mg/dL [facility] Comment: Interpretive Data Fasting glucose >/= 126 [...] Calcium 10.3 8.5 - 10.3 mg/dL [facility] Bilirubin, total 1.5(H) 0.1 - 1.2 mg/dL [facility] Protein, pl 8.5 6.5 - 8.5 g/dL [facility] Albumin 5.1(H) 3.5 - 5.0 g/dL [facility] Alk phos 99 40 - 130 Units/L [facility] ALT 19 7 - 55 Units/L [facility] AST 21 10 - 50 Units/L [facility] Blood 05/21/2024 3:41 PM DIRECT SUPPORT WORKER 05/21/2024 4:03 PM DIRECT SUPPORT WORKER Marcus Amaya MD LAB BLOOD ORDERABLES F inal Result [facility] Department [place] [address] * CBC with auto differential (05/21/2024 3:41 PM DIRECT SUPPORT WORKER) [facility] Signature WBC 9.4 3.8 - 9.9 K/cumm Hgb 13.9 13.0 - 17.5 g/dL [facility] Hct 40.0 38.9 - 50.3 % [facility] Plt 291 150 - 400 K/cumm [facility] MPV 9.1 9.1 - 12.3 fL [facility] RBC 4.59 4.30 - 5.80 M/cumm [facility] MCV 87.1 81.3 - 96.4 fL [facility] MCH 30.3 27.1 - 33.3 pg [facility] MCHC 34.8 32.3 - 35.7 g/dL [facility] RDW CV 13.1 11.1 - 14.9 % [facility] RDW SD 41.8 35.7 - 48.1 fL [facility] NRBC abs 0.00 0.00 - 0.01 K/cumm [facility] Blood (Blood, Venous) 05/21/2024 3:41 PM DIRECT SUPPORT WORKER 05/21/2024 4:06 PM DIRECT SUPPORT WORKER Marcus Amaya MD LAB BLOOD ORDERABLES F inal Result [facility] Department [place] [address] * ECG 12-LEAD (05/21/2024 2:24 PM DIRECT SUPPORT WORKER) Narrative [facility] - 05/21/2024 2:24 PM DIRECT SUPPORT WORKER Huy Mack MD ? 05/21/2024 ??2:27 PM [...] in the ED Huy Mack MD 05/21/24 1427 Marcus Amaya MD ECG ORDERABLES Final Result [facility] documented in this encounter Visit Diagnoses Diagnosis Nausea and vomiting, unspecified vomiting type- Primary documented in this encounter Administered Medications Inactive Administered Medications - up to 3 most recent administrations Medication Order MAR Action Action Date Dose Rate Site haloperidol (HALDOL) injection 5 mg 5 mg, intravenous, Once, On Tue05/21/24 at 1630, For 1 dose, If administered IV push, administer over 5 min for adults Given 05/21/2024 4:36 PM DIRECT SUPPORT WORKER 5 mg HYDROcodone-acetaminophen (NORCO) 5-325 mg per tablet 1 tablet 1 tablet, oral, Once, On Tue05/21/24 at 1930, For 1 dose, Indications: PainIndications:Pain Given 05/21/2024 7:31 PM DIRECT SUPPORT WORKER 1 tablet HYDROmorphone (DILAUDID) injection 0.5 mg 0.5 mg, intravenous, Administer over 2 Minutes, Once, On Tue05/21/24 at 1630, For 1 dose Given 05/21/2024 4:33 PM DIRECT SUPPORT WORKER 0.5 mg HYDROmorphone (DILAUDID) injection 0.5 mg 0.5 mg, intravenous, Administer over 2 Minutes, Once, On Tue05/21/24 at 1651, For 1 dose Given 05/21/2024 5:14 PM DIRECT SUPPORT WORKER 0.5 mg sodium chloride 0.9% bolus 1,000 mL 1,000 mL, intravenous, Once, On Tue05/21/24 at 1630, For 1 dose New Bag 05/21/2024 4:36 PM DIRECT SUPPORT WORKER 1,000 mL documented in this encounter Active and Recently Administered Medications Times are shown in DIRECT SUPPORT WORKER. Scheduled Medication Order 05/19/2024 05/20/2024 05/21/2024 haloperidol (HALDOL) injection 5 mg (COMPLETED) 5 mg, intravenous, Once, On Tue05/21/24 at 1630, For 1 dose, If administered IV push, administer over 5 min for adults 163 (Given - Provid er: Zeny Ellis RN) HYDROcodone-acetaminophen (NORCO) 5-325 mg per tablet 1 tablet (COMPLETED) 1 tablet, oral, Once, On Tue05/21/24 at 1930, For 1 dose, Indications: Pain 193 (Given - Provid er: Tamiko Banks) HYDROmorphone (DILAUDID) injection 0.5 mg (COMPLETED) 0.5 mg, intravenous, Administer over 2 Minutes, Once, On Tue05/21/24 at 1630, For 1 dose 1633 (Given - Provid er: Zeny Ellis RN) HYDROmorphone (DILAUDID) injection 0.5 mg (COMPLETED) 0.5 mg, intravenous, Administer over 2 Minutes, Once, On Tue05/21/24 at 1651, For 1 dose 1714 (Given - Provid er: Michael Lopez RN) sodium chloride 0.9% bolus 1,000 mL (COMPLETED) 1,000 mL, intravenous, Once, On Tue05/21/24 at 1630, For 1 dose 1636 (New Bag - Prov ider: Zeny Ellis RN)1754 (Stopped - Provider: Michael Lopez RN) documented in this encounter Orders Nursing Count Last Ordered Date First Orde red Date MISCELLANEOUS NURSING CARE ORDER (SPECIFY) 2 05/21/2024 IV Count Last Ordered Date First Orde red Date SALINE LOCK IV 1 05/21/2024 documented in this encounter Care Teams Sales Service Coordinator Relationship Specialty Start Date End Date Carl Strickland MD [address] [facility] [address] [place] [address] PCP - General Internal Medicine 06/06/23 Leo Manzano MD [id number] [place] [address] Surgeon Vascular Surgery 05/16/23 documented as of this encounter
--- OUTSIDE RECORDS SUMMARY | 2024-05-30 05:35 | XMS_ITS | Encounter Summary ---
Author Organization [facility] Healthcare Address [address] [place] [address] Care Team Providers Care Web Search Evaluator Name Role Phone Leo Manzano MD Unavailable [phone] Carl Strickland MD Primary Care Provider Reason for Referral * Diagnostic Imaging (Routine) - Closed Specialty Diagnoses / Procedures Referred By Contac t Referred To Contact Diagnoses Sacroiliitis (HCC) Procedures Imaging SI Joint Injection Bilateral (36811) Adrianne Adams MD PhD [address] [facility] [address] [place] [id number] Phone: tel: fax: [address] [phone] Referral ID Status Reason Start Date Expiration Date Visits Re quested Visits Authorized [id number] Closed 01/20/2024 02/18/2025 1 1 Reason for Visit * Reason Comments Back Pain Encounter Details Date Type Department Care Team (Latest Contact Info) Description 01/20/2024 2:35 PM CDT - 01/20/2024 11:59 PM CDT Hospital Encounter [facility] [place] [facility] [address] [place] [address] Advanced Medicine [address] [place], [place] [id number] Adrianne Adams MD PhD [address] [place] [address] Sacroiliitis (HCC) (Primary Dx); Spondylosis of lumbar region without myelopathy or radiculopathy Discharge Disposition: Discharge to home or self care Social History Tobacco Use Types Packs/Day Years Used Date Smoking Tobacco: Never Smokeless Tobacco: Never Alcohol Use Standard Drinks/Week Comments Not Currently 0 (1 standard drink = 0.6 oz pur e alcohol) [facility] Utilities Answer Date Recorded In the past 12 months has [employer] electric, gas, oil, or water [employer] threatened to shut off services in your home? Patient declined 10/02/2023 Social Connection and Isolation Panel [NHANES] A nswer Date Recorded In a typical week, how many times do you talk on the phone with family, friends, or neighbors? Patient declined 10/02/2023 How often do you get togethe r with friends or relatives? Patient declined 10/02/2023 How often do you attend quaker or sabianism serv ices? Patient declined 10/02/2023 Do you [...] place to sleep or slept in a alf (including now)? Patient declined 10/02/2023 Personal Safety Answer Date Recorded Have you ever been in or are you currently in a harmful physical or emotional relationship or is someone making you feel afraid or unsafe? Denies 10/04/2023 Sex and Gender Information Value Date Recorded Sex Assigned at Not on file Legal Sex Male 3:42 AM EDGER LINER Gender Identity Not on file Sexual Orientation Straight 06/12/2023 11 :43 PM EDGER LINER documented as of this encounter Last Filed Vital Signs Vital Sign Reading Time Taken Comments Blood Pressure 117/72 01/20/2024 3:30 PM CDT Pulse 80 01/20/2024 3:30 PM CDT Temperature 36.7 ??C (98 ??F) 01/20/2024 3:30 PM CDT Respiratory Rate 16 01/20/2024 3:30 PM CDT Oxygen Saturation 97% 01/20/2024 3:30 PM CDT Inhaled Oxygen Concentration - - Weight 98 kg (216 lb) 01/20/2024 3:30 PM CDT Height 175.3 cm (5' 9 ) 01/20/2024 3:30 PM CDT Body Mass Index 31.9 01/20/2024 3:30 PM CDT documented in this encounter Discharge Instructions * Patient Instructions* Italo Ortiz RN - 01/20/2024 3:00 PM CDT Bilateral sacroiliac steroid injection next available. - please bring a local company truck driver for procedure SACROILIAC JOINT INJECTION [facility] PATIENT EDUCATION PRE-PROCEDURE INFORMATION SHEET What is a sacroiliac joint injection? The sacroiliac (Sl) joint connects the sacrum (the bottom of the spine) with the pelvis. A sacroiliac joint injection is used to treat pain in the back and the legs. A local anesthetic (numbing medication) and a steroid medication will be placed in the sacroiliac joint. Th anjel medications can decrease the infl ammation (swelling) in the area, helping to decrease your pain. What should I do before my procedure? Let your doctor or nurse know if you are on any blood thinners (such as Aggenox, Coumadin, Effi ent, Eliquis, Lovenox, Plavix Pletal, Pradaxa, Ticlid or Xarelto). You may eat, drink and take your medications as usual. Bring someone with you to drive you home. An X-ray machine will be used during the procedure. Let your doctor or nurse know if there is any chance you may be . What should I expect during my procedure? Your procedure will be done on an x-ray table while you are awake. A rehabilitation therapy technician will be taking x-rays. A nurse will monitor your blood pressure, breathing, and heart rate. Your doctor will use a local anesthetic to numb the area. What should I expect after my procedure? A nurse will monitor you for a brief time. You may feel sore at the injection site. You may feel lightheaded or dizzy, or have numbness or weakness in your legs. Th anjel symptoms usually wear off in 6-8 hours and are almost always gone by the next morning. If you have any questions before your procedure, please call the Pain Management Center at and ask to speak to a nurse. documented in this encounter Medications at Time of Discharge acetaminophen (TYLENOL) 500 mg tablet Take 2 tablets (1,000 mg total) by mouth every 6 (six) hours as needed for pain, headaches or fever amLODIPine (NORVASC) 10 mg tablet Take 1 tablet (10 mg total) by mouth daily 30 tablet 11 4 06/25/19 25 aspirin 81 mg chewable tablet Take 1 tablet (81 mg total) by mouth daily 30 tablet 11 3 capsaicin (ZOSTRIX) 0.025 % cream Apply 1 [...] every day by oral route with meal(s). ondansetron ODT (ZOFRAN-ODT) 4 mg disintegrating tablet Take 1 tablet (4 mg total) by mouth every 8 (eight) hours as needed for nausea or vomiting 10 tablet 3 oxyBUTYnin (DITROPAN) 5 mg tabletIndications:U reteral stent discomfort Take 1 tablet (5 mg total) by mouth 3 (three) times a day as needed (Bladder spasms/discomfort ) 30 tablet 3 4 senna-docusate (PERICOLACE) 8.6-50 mg Take 2 [...] nightly 30 tablet 1 4 05/29/20 24 gabapentin (NEURONTIN) 600 mg tablet Take 1 tablet (600 mg total) by mouth 3 (three) times a day 02/28/20 24 oxyCODONE (ROXICODONE) 5 mg immediate release tabletIndications:P ain Take 1 tablet (5 mg total) by mouth every 4 (four) hours as needed for pain 10 tablet 4 02/28/20 24 pregabalin (LYRICA) 100 mg capsuleIndications: Fibromyalgia,Postop erative Acute Pain,neuropathic pain Take 1 capsule (100 mg total) by mouth 2 (two) times a day 60 capsule 5 4 05/29/20 24 QUEtiapine (SEROquel) 50 mg tablet Take 1 tablet (50 mg total) by mouth nightly 30 tablet 1 4 05/29/20 24 documented as of this encounter Discharge Disposition Disposition Code Departure Means Destination Discharge to home or self care documented in this encounter Progress Notes * Adrianne Adams MD PhD - 01/20/2024 3:00 PM CDT Pain Management Follow Up Note Patient Name: Eriberto Chau : 1990 Today's Date: 01/20/2024 PCP: Carl Strickland MD Referring: Notinfile Unknown HPI: Mr. Eriberto Chau is a 33 y.o. male who was referred for consultation regarding treatment recommendations for management of pain in the low back and stomach. His chronic back pain started in April 2023 following aortic repair surgery with lumbar drains that required multiple attempts. Patient was admitted to the hospital on 08/23/23 for pain control. Was seen by inpatient pain service. At home, he was taking Flexeril 10 mg t.i.d. p.r.n., gabapentin 300 mg t.i.d., and oxycodone 5 mg q.4 hours p.r.n.. He last filled his oxycodone on 07/08/2023 for 20 tablets. He states that he wastaking up to 3 tablets of 10 mg oxycodone daily as needed. Since June, however, he has not had any refills. Currently, he has been continued on his home gabapentin, Flexeril, as well as started on p.r.n. hydromorphone p.r.n., and ibuprofen 800 mg p.r.n.. He also has oxycodone 10 mg q.6 hours p.r.n.. Last 24 hours, he has taken 30 mg of oxycodone, and 3.5 mg of IV Dilaudid. He also had a 1 time dose of 50 mcg fentanyl and 15mg of toradol yd AM. He states that none of these medications are helpful except for oxycodone and Dilaudid. Oxycodone Dilaudid provide transient benefit for approximately 3-4 hours before pain comes back to baseline. They recommended starting amitriptyline 25mg qhs,and started meloxicam 50mg qD. Previous injections: None Prior pain medications: Gabapentin Lyrica Amitriptyline Hydrocodone Oxycodone Morphine Tramadol APAP Ibuprofen Meloxicam Flexeril Robaxin Physical Therapy: Has completed 6 weeks of PT within the past 6 months - not helpful Patient has various interventional therapies with some degree of success: INTERVAL HISTORY (01/20/2024) Patient returns to the clinic for a f/u visit for ongoing low back pain. At the last visit we discussed increasing pregabalin to 100 BID Today, the pain is described as noted below: Pain Assessment Pain Score: 5 - Moderate pain Pain Location: Back (Lumbar) Pain Radiating Towards: across tejas back and shooting down tejas legs Pain Descriptors: Aching, Burning, Sharp, Numbness Pain Frequency: Constant/continuous Pain Onset: Ongoing Clinical Progression: Not changed Patient's Stated Pain Goal: 3 He denies any changes in the characteristics of symptoms compared to last visit. Denies any new weakness, numbness, or bowel and bladder incontinence. Patient is currently tolerating medications listed below as prescribed. Reports benefit without side effects such as sedation or feeling groggy. Pain Medications acetaminophen (TYLENOL) 500 mg tablet Take 2 tablets (1,000 mg total) by mouth every 6 (six) hours as needed for pain, headaches or fever amitriptyline (ELAVIL) 25 mg tablet Take 1 tablet (25 mg total) by mouth nightly gabapentin (NEURONTIN) 600 mg tablet Take 1 tablet (600 mg total) by mouth 3 (three) times a day lamoTRIgine (LaMICtal) 25 mg tablet Take 1 tablet (25 mg total) by mouth daily lurasidone (LATUDA) 20 mg tablet Take 1 tablet every day by oral route with meal(s). pregabalin (LYRICA) 100 mg capsule Take 1 capsule (100 mg total) by mouth 2 (two) times a day QUEtiapine (SEROquel) 50 mg tablet Take 1 tablet (50 mg total) by mouth nightly oxyCODONE (ROXICODONE) 5 mg immediate release tablet Take 1 tablet (5 mg total) by mouth every 4 (four) hours as needed for pain Results Allergies Allergen Reactions Lisinopril Angioedema Amoxicillin Hives Past Medical History: Diagnosis Date Abdominal pain Anxiety Aortic dissection (HCC) Depression Hypertension Kidney stones Memory loss Past Surgical History: Procedure Laterality Date ABDOMINAL AORTIC ANEURYSM REPAIR Social History Tobacco Use Smoking status: Never Smokeless tobacco: Never Substance and Sexual Activity Drug use: Not Currently Types: Marijuana Sexual activity: Defer Alcohol Use: Not At Risk (01/20/2024) AUDIT-C Frequency of Alcohol Consumption: Never Average Number of Drinks: Patient does not drink Frequency of Binge Drinking: Never Family History Problem Relation Age of Onset Depression Mother Anxiety disorder Mother Depression Father Anxiety disorder Sister Depression Sister Depression Brother Anxiety disorder Brother Review of Systems Review of Systems Constitutional: Positive for activity change. Musculoskeletal: Positive for back pain. Physical Exam Vitals: 01/20/24 1530 BP: 117/72 Pulse: 80 Resp: 16 Temp: 98 ??F (36.7 ??C) SpO2: 97% Weight: 98 kg (216 lb) Height: 175.3 cm (5' 9 ) Body mass index is 31.9 kg/m??. Physical Exam: CONSTITUTIONAL: general appearance normal Nutrition normal EYES: conjunctivae/corneas clear. PERRL EARS / NOSE / MOUTH / THROAT: External inspection of ears normal. CARDIOVASCULAR: regular rate and rhythm RESPIRATORY: no respiratory symptoms CHEST: Symmetric. GASTROINTESTINAL: Normal abdomen MUSCULOSKELETAL EXAMINATION: Slow gait. Unsteady gait. CERVICAL SPINE: Normal extension. Normal flexion. UPPER EXTREMITIES: Normal range of motion. THORACIC SPINE: Tenderness to palpation of spinal processes. Paraspinal muscle tenderness. OPRS3ERMAAM SPINE: Tenderness at the lumbosacral region. Positive lumbar facet loading bilaterally.Range of motion of lumbar spine decreased. Decreased pain with lumbar flexion. Positive L SLR. LOWER EXTREMITIES: Normal range of motion. Normal muscle strength. SKIN: Pigmentation:generalized hypopigmentation NEUROLOGIC EXAM: Defer. PSYCHIATRIC: alert,oriented, in NAD with a full range of affect, normal behavior and no psychotic features Some facet tenderness tejas; lumbar facet loading positive bilaterally SI joint tenderness, TANJA, Westbrook's, Compression tests positive bilaterally Hip tenderness: negative bilaterally FADIR: negative bilaterally Log roll: negative bilaterally Imaging 09/08/23 L-spine MRI FINDINGS: The alignment of the lumbar spine is normal. Trace Modic type II changes are noted along the anterior-inferior endplate of L3. Vertebral bodies demonstrate otherwise normal signal intensity on all sequences. There are no compression fractures. The conus medullaris terminates at the level of T12-L1. The distal spinal cord signal intensity is normal. Intervertebral disks have normal height and signal intensity. There are no annular fissures identified. Kindly refer to recently performed CTA chest, abdomen and pelvis regarding findings of extensive aortic dissection. The disks are normal in configuration. There is no facet arthropathy. There is no neuroforaminal stenosis. There is no spinal canal stenosis. IMPRESSION: Unremarkable MRI lumbar spine. Assessment Encounter Diagnoses Name Primary? Sacroiliitis (HCC) Yes Spondylosis of lumbar region without myelopathy or radiculopathy The above note documents my personal evaluation of this patient. In addition, I have reviewed and confirmed with the patient and nurse the supportive information documented in today's scanned PatientHealth Questionnaire and Office Note. Plan 1. Intervention: Given the signs and symptoms of sacroiliitis, we will proceed with bilateral SIJ injection at the next visit R/B/A discussed, including but not limited to bleeding, infection, and possible nerve injury/paralysis. Alternatives (risks) include: medication managment (dependency), no intervention (increased pain). Patient understand risks/benefits/alternatives and agrees to proceed with injection. 2. Medications: a. Opioids: none b. Adjuvants: We reviewed his medication regimen. No change at this time. Pain Medications acetaminophen (TYLENOL) 500 mg tablet Take 2 tablets (1,000 mg total) by mouth every 6 (six) hours as needed for pain, headaches or fever amitriptyline (ELAVIL) 25 mg tablet Take 1 tablet (25 mg total) by mouth nightly gabapentin (NEURONTIN) 600 mg tablet Take 1 tablet (600 mg total) by mouth 3 (three) times a day lamoTRIgine (LaMICtal) 25 mg tablet Take 1 tablet (25 mg total) by mouth daily lurasidone (LATUDA) 20 mg tablet Take 1 tablet every day by oral route with meal(s). pregabalin (LYRICA) 100 mg capsule Take 1 capsule (100 mg total) by mouth 2 (two) times a day QUEtiapine (SEROquel) 50 mg tablet Take 1 tablet (50 mg total) by mouth nightly oxyCODONE (ROXICODONE) 5 mg immediate release tablet Take 1 tablet (5 mg total) by mouth every 4 (four) hours as needed for pain 3. Imaging: No further imaging needed at this current time. I reviewed his L- spine MRI from 09/08/23. 4. Referral: Encourage HEP 5. Follow-up: At the next possible visit for the procedure listed above. Adrianne Adams MD PhD Clinical Fellow, Pain Management Department of Anesthesiology [facility] in [place] 01/20/24 * Italo Ortiz, BRIA - 01/20/2024 3:00 PM CDT Level 2 Escorted patient to exam room. Obtained vital signs. Reviewed patient's allergies and current medications. Obtained and verified patient's simple medical/surgical history. Confirmed the reason for visit with the patient. Obtained the following screening assessments: [x] Modified Oswestry Low Back Pain Questionnaire [] PMC Intake Questionnaire [x] PMC Follow up Questionnaire [] Fall Risk Assessment ([place], Tiffany Hernandez, Leona) [] Depression/Anxiety Assessment (GAD7, PHQ-9, [place] Suicide, Harry Depression) [] Disability Scale [] CAGE [] SOAPP-R Additional tasks included: [] Random medication adherence check (pill verification by two nurses) [] Work/school note written [] Pended CT/MRI/MRA order [] Pain assessment for multiple sites Vital Signs Temp: 98 ??F (36.7 ??C) Pulse: 80 Resp: 16 BP: 117/72 SpO2: 97 % Post-visit transport confirmed with the patient. Total time spent for patient care, education, and care coordination was approximately 11-20 minutes. documented in this encounter Plan of Treatment Not on file documented as of this encounter Goals Goal Patient Goal Type Associated Problems Recent Progress Patient-Stated? Author CCM Chronic Pain Care Plan Chronic Care Management No change(05/16 2:51 PM EDGER LINER) No Rita Landa, BRIA Note: Problem: Chronic Pain Goals: 1. Minimize further functional decline 2. Maximize quality of life 3. Control pain Strategies: - Activity/exercise program recommendation - Conservative stepwise pain medicine strategy with multi-disciplinary approach - Recommend healthy lifestyle strategies and compensatory methods as needed documented as of this encounter Results * Imaging SI Joint Injection Bilateral (17049) (02/28/2024 11:27 AM CDT) Narrative [facility] - 02/28/2024 11:28 AM CDT The images from this study are not interpreted by Radiology. ??Please refer to the physician's procedure / OR operative note. us Adrianne Admas MD PhD IMG PAIN MGMT PROCEDURE S Final Result [facility] documented in this encounter Visit Diagnoses Diagnosis Sacroiliitis (HCC)- Primary Sacroiliitis, not elsewhere classified Spondylosis of lumbar region without myelopathy or radiculopathy Sacroiliitis (HCC)- Primary Sacroiliitis, not elsewhere classified documented in this encounter Historical Medications * This list may reflect changes made after this encounter. lurasidone (LATUDA) 20 mg tablet Take 1 tablet every day by oral route with meal(s). added in this encounter Care Teams Web Search Evaluator Relationship Specialty Start Date End Date Carl Strickland MD [address] [facility] [place] [address] [place] [address] PCP - General Internal Medicine 06/06/23 Leo Manzano MD [address] [facility] [id number] [place] [address] Surgeon Vascular Surgery 05/16/23 documented as of this encounter
--- OUTSIDE RECORDS SUMMARY | 2024-05-30 05:35 | XMS_ITS | Encounter Summary ---
Author Organization [facility] Healthcare Address [address] [place] [address] Care Team Providers Care Insurance Sales Professional Name Role Phone Leo Manzano MD Unavailable [phone] Carl Strickland MD Primary Care Provider Reason for Referral * MRI/CAT/PET Scan (Routine) - Closed Specialty Diagnoses / Procedures Referred By Contac t Referred To Contact Radiology Diagnoses Dissection of thoracoabdominal aorta (CMS/HCC) (HCC) Procedures CTA Chest Abdomen Pelvis Leo Manzano MD [address] [place] [address] Phone: tel: fax: [address] [phone] Referral ID Status Reason Start Date Expiration Date Visits Re quested Visits Authorized [id number] Closed 01/27/2024 03/27/2024 1 1 Reason for Visit * MRI/CAT/PET Scan (Routine) - Closed Specialty Diagnoses / Procedures Referred By Contac t Referred To Contact Radiology Diagnoses Dissection of thoracoabdominal aorta (CMS/HCC) (HCC) Procedures CTA Chest Abdomen Pelvis Leo Manzano MD [address] [place] [address] Phone: tel: fax: [facility] FARIDE[place]arm[place] [phone] Referral ID Status Reason Start Date Expiration Date Visits Re quested Visits Authorized [id number] Closed 01/27/2024 03/27/2024 1 1 Encounter Details Date Type Department Care Team (Latest Contact Info) Description 03/07/2024 11:53 AM CDT - 03/07/2024 11:59 PM CDT Hospital Encounter [facility] [id number] Rose [id number] Dissection of thoracoabdominal aorta (CMS/HCC) (HCC) Discharge Disposition: Discharge to home or self care Social History Tobacco Use Types Packs/Day Years Used Date Smoking Tobacco: Never Smokeless Tobacco: Never Alcohol Use Standard Drinks/Week Comments Not Currently 0 (1 standard drink = 0.6 oz pur e alcohol) [facility] Utilities Answer Date Recorded In the past 12 months has [employer] electric, gas, oil, or water [employer] threatened to shut off services in your home? Patient declined 10/02/2023 Social Connection and Isolation Panel [NHANES] A nswer Date Recorded In a typical week, how many times do you talk on the phone with family, friends, or neighbors? Patient declined 10/02/2023 How often do you get togethe r with friends or relatives? Patient declined 10/02/2023 How often do you attend buddhism or yarsani serv ices? Patient declined 10/02/2023 Do you belong to any clubs o r organizations such as buddhism groups, unions, fraternal or athletic groups, or [...] place to sleep or slept in a care home (including now)? Patient declined 10/02/2023 Personal Safety Answer Date Recorded Have you ever been in or are you currently in a harmful physical or emotional relationship or is someone making you feel afraid or unsafe? 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 Author CCM Chronic Pain Care Plan Chronic Care Management No change(05/16 2:51 PM GIS INSTRUCTOR) No Rita Landa, RN Note: Problem: Chronic Pain Goals: 1. Minimize further functional decline 2. Maximize quality of life 3. Control pain Strategies: - Activity/exercise program recommendation - Conservative stepwise pain medicine strategy with multi-disciplinary approach - Recommend healthy lifestyle strategies and compensatory methods as needed documented as of this encounter Procedures Procedure Name Priority Date/Time Associated Diagnosis Comments POC ISTAT Routine 03/07/2024 12:09 PM CDT CTA CHEST ABDOMEN PELVIS Schedule Routine, Read Routine (OP Routine) 03/07/2024 12:05 PM CDT Dissection of thoracoabdominal aorta (CMS/HCC) (HCC) documented in this encounter Results * POC ISTAT (03/07/2024 12:09 PM CDT) Creatinine, POC, bld 1.1 0.6 - 1.3 mg/dL POC Device Number [id number] JAIRON REDDYCH POC Performer [id number] JAIRON ERWINWCH Blood 03/07/2024 12:0 9 PM CDT 03/07/2024 12:09 PM CDT Leo Manzano MD LAB BLOOD ORDERABLES Final Result JAIRON ERWINCH [id number] [facility]. [place] [address] * CTA Chest Abdomen Pelvis (03/07/2024 12:05 [...] Ag Davila M.D., Ph.D Leo Manzano MD [facility] CT PROCEDURES Final Re sult documented in this encounter Visit Diagnoses Diagnosis Dissection of thoracoabdominal aorta (CMS/HCC) (HCC) documented in this encounter Administered Medications Inactive Administered Medications - up to 3 most recent administrations Medication Order MAR Action Action Date Dose Rate Site ioversoL (OPTIRAY 350) injection 0.01-500 mL 0.01-500 mL, intravenous, Once in imaging, contrast, Starting on Tue03/07/24 at 1202, For 1 dose Contrast Given 03/07/2024 12:06 PM CDT 90 mL Left Forearm documented in this encounter Orders Medications Ordered That Gerardo ht Not Have Been Administered Count Last Ordered Date First Ordered Date ioversoL (OPTIRAY 350) injec tion 0.01-500 mL 1 03/07/2024 documented in this encounter Care Teams Insurance Sales Professional Relationship Specialty Start Date End Date Carl Strickland MD [id number] [facility] [address] [place] [address] PCP - General Internal Medicine 06/06/23 Leo Manzano MD [address] [place] [address] Surgeon Vascular Surgery 05/16/23 documented as of this encounter
--- OUTSIDE RECORDS SUMMARY | 2024-05-30 05:35 | XMS_ITS | Encounter Summary ---
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 Name Role Phone Leo Manzano MD Unavailable [phone] Carl Strickland MD Primary Care Provider Reason for Visit * Reason Comments Post-op Problem Blood in Urine * Auth/Cert (Routine) Specialty Diagnoses / Procedures Referred By Contac t Referred To Contact Diagnoses Pyelonephritis Procedures NA Referral ID Status Reason Start Date Expiration Date Visits Re quested Visits Authorized [id number] 1 1 Encounter Details Date Type Department Care Team (Late st Contact Info) Description 10/02/2023 12:12 PM CDT - 10/04/2023 2:15 PM CDT Hospital Encounter [address] [phone] Mellisa Woo MD [address] [place] [address] Loyda Hernandez MD [address] [place] [phone] Angelica Harry MD [address] [place] [address] Radha Dixon MD [address] [place] [address] Doron Boudreaux MD [address] [place] [address] Kim Patel MD [address] [place] [address] Pyelonephritis [N12] (Primary Dx); Hypokalemia [E87.6]; ANGI (acute kidney injury) (HCC) [N17.9]; Syncope, unspecified syncope type [R55]; Dissection of aorta, unspecified portion of aorta (HCC) [I71.00]; Primary hypertension [I10]; Weight loss [R63.4]; ANGI (acute kidney injury) ([facility]) Discharge Disposition: Discharge to home or self care Social History Tobacco Use Types Packs/Day Years Used Date Smoking Tobacco: Never Smokeless Tobacco: Never Alcohol Use Standard Drinks/Week Comments Not Currently 0 (1 standard drink = 0.6 oz pur e alcohol) [facility] Utilities Answer Date Recorded In the past 12 months has [employer], gas, oil, or water [facility] threatened to shut off services in your home? Patient declined 10/02/2023 Social Connection and Isolation Panel [NHANES] A nswer Date Recorded In a typical week, how many times do you talk on the phone with family, friends, or neighbors? Patient declined 10/02/2023 How often do you get togethe r with friends or relatives? Patient declined 10/02/2023 How often do you attend yarsanism or yazdanism serv ices? Patient declined 10/02/2023 Do you belong to any clubs o r organizations such as yarsanism groups, unions, fraternal or athletic groups, or school groups? Patient declined 10/02/2023 How often do you attend meet ings of the clubs or organizations you belong to? Patient declined 10/02/2023 Are you , , di vorced, , never , or living with a partner? Patient declined 10/02/2023 AUDIT-C Answer Date Recorded Q1: How often do you have a drink containing alcohol? Never 09/27/2023 Q2: How many drinks containi ng alcohol do you have on a typical day when you are drinking? Patient does not drink Q3: How often do you have si x or more drinks on one occasion? Never 09/27/2023 Overall Financial Resource Strain (CARDIA) Answe r [...] have money to get more. Patient declined 09/2023 PRAPARE - Transportation Answer Date Re corded [...] place to sleep or slept in a correction (including now)? Patient declined 10/02/2023 Personal Safety Answer Date Recorded Have you ever been in or are you currently in a harmful physical or emotional relationship or is someone making you feel afraid or unsafe? 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 documented as of this encounter Last Filed Vital Signs Vital Sign Reading Time Taken Comments Blood Pressure 120/77 10/04/2023 9:23 AM CDT Pulse 85 10/04/2023 9:23 AM CDT Temperature 36.4 ??C (97.6 ??F) 10/04/2023 9:23 AM CD T Respiratory Rate 16 10/04/2023 9:23 AM CDT Oxygen Saturation 95% 10/04/2023 9:23 AM CDT Inhaled Oxygen Concentration - - Weight 94.8 kg (208 lb 14.4 oz) 10/02/2023 8:54 PM CDT Height 175.3 cm (5' 9 ) 10/02/2023 8:54 PM CDT Body Mass Index 30.85 10/02/2023 8:54 PM CDT documented in this encounter Discharge Summaries * Doron Boudreaux MD - 10/04/2023 2:15 PM CDT Inpatient Discharge Summary Patient Name - Eriberto Chau Patient Age - 33 yrs Patient - [id number] [facility] - [id number] Document Creation Date: 10/04/2023 Admitting Provider, MD: Otoniel Landa MD Discharge Provider, MD: No att. providers found Primary Care Physician at Discharge: Carl Strickland MD [phone] Admission Date: 10/02/2023 Discharge Date/time: 10/04/2023 Admission Location: 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 In May, had TEVAR extension and dissection stent placement. Also hash/o HTN, nephrolithiasis and chronic back pain since the TEVAR. He presented here 09/27/23 for flankpain and was found to have an obstructing right ureteral stone with hydro. Dr Glass from Urology performed a cysto and stent placement. He was supposed to pull his stent out today, but ended up pulling it out Tuesday as it was causing him discomfort. He then presented to the ED again today for right flank and right abdominal pain. He has had nausea/vomiting and chills as well. He noted urine in his blood this morning as well. Given the severe pain and hematuria, he presented to the ED. He also notes that on Wednesday 09/27, he got up from sitting and walked into his kitchen. He felt fuzzy and then passed out. He woke up with his friend standing above him. He reports he has not been eating and drinking well. He does not have a good appetite. He has recently lost 40 pounds. In the ED, he had a CT which showed mild right hydro and multiple small stones, all small. His Cr was 1.7, up from baseline, but decreased from 2.1 earlier this week. His UA showed infection. He was admitted for pain control and IV abx, and potentially urology consultation. Hospital Course: Improved with ctx. Changed to cefdinir on dc to complete 14 days treatment. He had R ureteral stents placed 10/03 His scr is not baseline but improved some from admit. He says he has a critical family event today. I gave an order for bmp 10/05 or and he assures me he will get this and f/u with PCP Dr. Torres office will call to [facility] uro follow up Discharge Details Physical Exam at Discharge: Discharge Condition: good Pulse: 85 Resp: 16 BP: 120/77 Temp: 36.4 ??C (97.6 ??F) Weight: 94.8 kg (208 lb 14.4 oz) Pertinent Exam Findings at Discharge: no pain or nausea. No cva ttp. Rrr. Discharge Disposition: Discharge to home or self care Code Status at Discharge: Full Code Active Issues & Recommended Plan for Follow-up: Allergies: Lisinopril and Amoxicillin Discharge Medications: Your medication list START taking these medications Instructions Last Dose Given Next Dose Due cefdinir 300 mg capsule Commonly known as: OMNICEF Take 1 capsule (300 mg total) by mouth 2 (two) times a day for 26 doses CONTINUE taking these medications Instructions Last Dose Given Next Dose Due acetaminophen 500 mg tablet Commonly known as: TYLENOL Take 2 tablets (1,000 mg total) by mouth every 6 (six) hours as needed for pain, headaches or fever amitriptyline 25 mg tablet Commonly known as: ELAVIL Take 1 tablet (25 mg total) by mouth nightly amLODIPine 10 mg tablet Commonly known as: NORVASC Take 1 tablet (10 mg total) by mouth daily aspirin 81 mg chewable tablet Take 1 tablet (81 mg total) by mouth daily capsaicin 0.025 % cream Commonly known as: ZOSTRIX Apply 1 Application topically 2 (two) times a day as needed for pain dicyclomine 20 mg tablet Commonly known as: BENTYL Take 1 tablet (20 mg total) by mouth every 6 (six) hours as needed (For abdominal pain) ergocalciferol 50,000 unit capsule Commonly known as: VITAMIN D Take 1 capsule (50,000 Units total) by mouth once a week for 7 doses gabapentin 600 mg tablet Commonly known as: NEURONTIN Take 1 tablet (600 mg total) by mouth 3 (three) times a day hydrALAZINE 50 mg tablet Commonly known as: APRESOLINE Take 1 tablet (50 mg total) by mouth 3 (three) times a day HYDROcodone-acetaminophen 5-325 mg per tablet Commonly known as: NORCO Take 1 tablet by mouth every 6 (six) hours as needed for pain hydrocortisone 2.5 % rectal cream Commonly known as: ANUSOL-HC Insert into the rectum 2 (two) times a day as needed for hemorrhoids hyoscyamine 0.125 mg SL tablet Commonly known as: LEVSIN Take 1 tablet (0.125 mg total) by mouth every 4 (four) hours as needed (Bladder spasms/discomfort) labetaloL 200 mg tablet Commonly known as: NORMODYNE,TRANDATE Take 2 tablets (400 mg total) by mouth 2 (two) times a day ondansetron ODT 4 mg disintegrating tablet Commonly known as: ZOFRAN-ODT Take 1 tablet (4 mg total) by mouth every 8 (eight) hours as needed for nausea or vomiting oxyBUTYnin 5 mg tablet Commonly known as: DITROPAN Take 1 tablet (5 mg total) by mouth 3 (three) times a day as needed (Bladder spasms/discomfort) QUEtiapine 50 mg tablet Commonly known as: SEROquel Take 1 tablet (50 mg total) by mouth nightly senna-docusate 8.6-50 mg Commonly known as: PERICOLACE Take 2 tablets by mouth 2 (two) times a day To prevent constipation tamsulosin 0.4 mg extended release capsule Commonly known as: FLOMAX Take 1 capsule (0.4 mg total) by mouth daily Where to Get Your Medications These medications were sent to [facility]/pharmacy #[id number] - [place], [place] - [address], [facility] [address] cefdinir 300 mg capsule HYDROcodone-acetaminophen 5-325 mg per tablet Time Spent in Discharge Process: I have spent 33 minutes on discharge planning activities. Time spent was on Coordination of care, Follow up , Counselling with patient/family, discharge exam, parent/patient education, PCP communication, and Other provider communication Test Results Pending at Discharge (If Blank, None Found): Pending Labs Order Current Status Blood culture Blood Preliminary result Blood culture Blood Preliminary result Urine culture Urine, bladder Preliminary result Urine culture Urine, clean voided Preliminary result Operative Procedures Performed (If Blank, None Found): Procedure(s): CYSTOSCOPY RETROGRADE PYELOGRAM - INSERTION URETERAL STENT Outpatient Follow-Up: Future Appointments Date Time Provider Department Center 10/07/2023 9:00 AM [facility] [id number] BJN US [facility] Main IMG 10/07/2023 10:00 AM Marcus Gamboa MD U[facility] CAM 11C [facility] 10/14/2023 10:20 AM Marcus Gamboa MD [facility] CAM 11C [place] 11/14/2023 1:30 PM Amanda Macias MD CAM PAIN [facility] CAM 11/23/2023 3:30 PM Joaquín Abarca MD CAR CAM 8B Cardiology 02/15/2024 12:[address] [facility] WCHCT2 [facility] CT [id number] 02/15/2024 1:00 PM Leo Manzano MD [facility] [id number] [place] Please schedule an appointment with the following provider(s): No follow-up provider specified. ANCILLARY INFORMATION Other Procedures & Diagnostic Tests: Transthoracic Echo (TTE) Complete W Doppler/CF Result Date: 10/03/2023 [facility] [place] [address] ECHOCARDIOGRAM Patient Name: WILLEMERIBERTO I : 1990 Study Date: 10/03/2023 2:55:30 PM Gender: M Tech: Location: [id number] Ref Provider: RADHA DIXON Height(Cm): 175 BSA: 2. 14 Weight(Kg): 94.3 BP: 136/69 Order Provider: RADHA DIXON - PROCEDURES: Echocardiographic Report: Transthoracic Echocardiogram with 2D, M-Mode, Spectral and Color Flow Doppler examination and administration of intravenous contrast. INDICATIONS: Syncope. Measurements: 2D/M Mode Doppler Measurement Value Normal Range Measurement Value Normal Range IVSd 2D 1.04 [ 0.60 - 1.00 ] cm AV Peak Shaun 1.7 [ 1.0 - 1.7 ] m/s LVIDd 2D 5.78 [ 4.20 - 5.80 ] cm AV Peak PG 12 mmHg LVIDs 2D 4.28 [ 2.50 - 4.00 ] cm AV Mean PG 6 mmHg LVPWd 2D 0.98 [ 0.60 - 1.00 ] cm AV VTI 27.1 cm LA Dimension 2D 3.32 [ 3.00 - 4.00 ] cm SUZANNE V max 3.2 cm2 AoR Diam 2D 3.42 [ 3.10 - 3.70 ] cm SUZANNE VTI 3.3 cm2 TAPSE 2.38 [ >=1.71 ] cm LVOT Peak Shaun 1.54 [ 0.70 - 1.10 ] m/s LVOT Diam 2.1 cm LVOT Peak PG 10 mmHg LVOT VTI 24.8 cm MV Peak PG 5 mmHg MV Mean PG 3 mmHg MV E Peak Shaun 1.2 [ 0.6 - 1.3 ] m/s MV A Peak Shaun 1.1 [ 1.0 - 1.2 ] m/s MV PHT 75.9 [ 20.0 - 100.0 ] ms MV Decel Time 149.1 [ 104.0 - 258.0 ] ms MVA PHT 2.9 ms MV E/A Ratio 1.1 PV Peak Shaun 1.4 [ 0.4 - 0.8 ] m/s PV Peak PG 7 mmHg Lat E` Shaun 0.15 [ 0.10 - 0.15] m/s Sept E' Shaun 0.08 [ 0.08 - 0.15 ] m/s E/E` 8.00 RV S' 0.16 m/s Measurement Value Normal RangeMeasurement Value Normal Range 2D/M Mode Doppler - FINDINGS: Study Quality: Technically difficult study. Contrast was employed for LV opacification and endocardial border enhancement. BP: Blood pressure: 136/69 mmHg. Left Ventricle: Mild left ventricular systolic dysfunction. Ejection Fraction is m easured at (Simpsons) 50 %. Upper limits of normal left ventricular chamber size. Mild concentric left ventricular hypertrophy. Right Ventricle: Normal right ventricular systolic function. Normal right ventricular size. Left Atrium: The left atrium is normal in size. Right Atrium: The right atrium is normal in size. Atrial Septum: Normal appearing atrial septum. Mitral Valve: Normal mitral valve appearance and function. Aortic Valve: Normal aortic valve appearance and function. Aortic valve appears tricuspid in configuration. Tricuspid Valve: Normal tricuspid valve appearance and function. Pulmonic Valve: The pulmonic valve is not seen. Pericardium: Normal appearing pericardial thickness. No significant pericardial effusion. Aortic Root and Aorta: Normal caliber aortic root. Aortic Arch: The aortic arch is poorly visualized. IVC: The IVC is not seen. CONCLUSIONS: 1. Mild left ventricular systolic dysfunction. Ejection Fraction is measured at (Simpsons) 50 %. Upper limits of normal left ventricular chamber size. Mild concentric left ventricular hypertrophy. Electronically Signed By: Deandre Meza MD, [facility] 2023-10-03 16:50:[address] Abdomen Pelvis W Contrast Result Date: 10/02/2023 EXAMINATION: Computed tomography of the abdomen and pelvis without intravenous contrast HISTORY: Flank pain TECHNIQUE: Transaxial computed tomographic images of the abdomen and pelvis were obtained without intravenous contrast. Of note, 93 mL Optiray 350 venous contrast is documented, but there is no contrast opacification in any of the vessels on this examination, suggesting a technical failure.COMPARISON: 09/27/2023 FINDINGS: Endoluminal stent is noted within the descending thoracic aorta and extends to just above the aortic bifurcation. 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 The dissection flap can be seen terminating in the left common iliac artery. The stomach and duodenum are grossly normal. The noncontrast appearance of the liver is normal. The gallbladder is nondilated. The pancreas, spleen and adrenal glands are normal. There is mild right hydronephrosis and there are multiple punctate stones in the right renal pelvis. Several tiny stones are noted in the right ureter, which is dilated and which is surrounded by inflammatory stranding. No stones are evident on the left. No retroperitoneal or pelvic adenopathy. The colon and small bowel are normal in caliber. There is no ascites. The urinary bladder is mildly distended. No stones are evident within the urinary bladder. No acute or suspiciousosseous findings. Mild right hydroureteronephrosis with multiple punctate stones in the right renal collecting systemand several stones in the right ureter. None of the ureteral stones exceeds 2 mm in size. Electronically signed by: Brando Kumar M.D. Recent Labs: Recent Labs Lab Units 10/04/2353910/03/23 0810/02/23 1337 WBC K/cumm 5.7 6.3 7.5 HEMOGLOBIN g/dL 10.4* 10.0* 10.7* HEMATOCRIT % 32.9* 31.1* 32.2* PLATELETS K/cumm 236 230 259 Recent Labs Lab Units 10/04/2353910/03/23 0801 10/02/23 1337 WBC K/cumm 5.7 6.3 7.5 HEMOGLOBIN g/dL 10.4* 10.0* 10.7* HEMATOCRIT % 32.9* 31.1* 32.2* PLATELETS K/cumm 236 230 259 NEUTROS PCT % 66.5 74.0 79.8 LYMPHS PCT % 20.1 9.7 7.1 MONOS PCT % 11.9 15.2 11.5 EOS PCT % 0.3 0.0 0.8 Recent Labs Lab Units 10/04/2353910/03/23 0801 10/02/23 1337 SODIUM mmol/L 140 134* 138 POTASSIUM PLASMA mmol/L 3.6 3.3 3.1* CHLORIDE mmol/L 104 100 101 CO2 mmol/L 22 22 25 BUN SERUM mg/dL 11 15 27* CREATININE mg/dL 1.56* 1.15 1.70* [id number] mL/min/1.73 m2 61 87 55* GLUCOSE mg/dL 96 95 93 CALCIUM mg/dL 8.6 8.4* 9.2 ALBUMIN g/dL -- -- 4.3 Recent Labs Lab Units 10/04/2353910/03/23 0801 10/02/23 1337 SODIUM mmol/L 140 134* 138 POTASSIUM PLASMA mmol/L 3.6 3.3 3.1* CHLORIDE mmol/L 104 100 101 CO2 mmol/L 22 22 25 ANIONGAP mmol/L 14 12 12 GLUCOSE mg/dL 96 95 93 BUN SERUM mg/dL 11 15 27* CREATININE mg/dL 1.56* 1.15 1.70* CALCIUM mg/dL 8.6 8.4* 9.2 ALBUMIN g/dL -- -- 4.3 ALK PHOS Units/L -- -- 90 ALT Units/L -- -- 8 AST Units/L -- -- 10 BILIRUBIN TOTAL mg/dL -- -- 0.4 Recent Labs Lab Units 10/02/23 1337 ALK PHOS Units/L 90 BILIRUBIN TOTAL mg/dL 0.4 TOTAL PROTEIN g/dL 8.0 ALT Units/L 8 AST Units/L 10 Recent Labs Lab Units 10/04/23 0540 10/03/23 0801 MAGNESIUM mg/dL 2.1 1.9 Lab Results Component Value Date GLUCOSE 96 10/04/2023 GLUCOSE 95 10/03/2023 GLUCOSE 93 10/02/2023 Implant: Implants Graft [employer] Stent Graft Aortic Covered Tag [id number] Eptfe Nitinol [id number] - [id number] - [id number] - Implanted Aorta Inventory item: [employer] Stent Graft Aortic Covered Tag [id number] Eptfe Nitinol [id number] Model/Cat number: [id number] Serial number: [id number] Solar 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: [employer] Device identifier: [id number] Device identifier type: GS1 As of 05/02/2023 Status: Implanted Stent [employer] Stent Graft Thoracic Side Branch Tag [id number] Eptfe Nitinol [id number] - [id number] - [id number] - Implanted (Left) Subclavian Inventory item: [employer] Stent Graft Thoracic Side Branch Tag [id number] Eptfe Nitinol [id number] Model/Cat number: [id number] Serial number: [id number] Solar 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: [employer] Size: 16mm side branch Device identifier: [id number] Device identifier type: GS1 As of 05/02/2023 Status: Implanted [employer] Graft Stent [place] Tag L20cm Od37mm Thoracic Active Control [id number] - [id number] - Implanted Descending Thoracic Aorta Inventory item: [employer] Graft Stent [place] Tag L20cm Od37mm Thoracic Active Control [id number] Model/Cat number: [id number] Serial number: [id number] Solar 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: [employer] Device identifier: [id number] Device identifier type: GS1 As of 06/05/2023 Status: Implanted [employer] Zenith 36mm 20-30mm 16mm 180mm 9 Dissection Introducer Sheath [id number] - [id number] Implanted Descending Thoracic Aorta Inventory item: [employer] ZENITH 36MM 20-30MM 16MM 180MM 9 DISSECTION INTRODUCER SHEATH [id number] Model/Cat number: [id number] Solar 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: [employer] Lot number: [id number] Device identifier: [id number] Device identifier type: GS1 As of 06/05/2023 Status: Implanted Vascular Closure Device [employer] Device Clsr Perclose Prostyle Sut-Mediatd Closure-Repair Sys 68884-41 - [id number] Implanted (Left) Common Femoral Artery Inventory item: [employer] CLSR PERCLOSE PROSTYLE SUT-MEDIATD CLOSURE-REPAIR SYS 29192-28 Model/Cat number: [id number] Solar 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: [employer] Lot number: [id number] Device identifier: [id number] Device identifier type: GS1 As of 05/02/2023 Status: Implanted Type Not Specified [employer] Device Clsr Perclose Prostyle Sut-Mediatd Closure-Repair Sys 16491-15 - [id number] Implanted (Left) Groin Inventory item: [employer] CLSR PERCLOSE PROSTYLE SUT-MEDIATD CLOSURE-REPAIR SYS 37415-96 Model/Cat number: [id number] Solar 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: [employer] Lot number: [id number] Device identifier: [id number] Device identifier type: GS1 As of 06/05/2023 Status: Implanted [employer] Device Clsr Perclose Prostyle Sut-Mediatd Closure-Repair Sys 76538-22 - [id number] Implanted (Left) Groin Inventory item: [employer] CLSR PERCLOSE PROSTYLE SUT-MEDIATD CLOSURE-REPAIR SYS 27106-21 Model/Cat number: [id number] Solar 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: [employer] Lot number: [id number] Device identifier: [id number] Device identifier type: GS1 As of 06/05/2023 Status: Implanted [employer] Ben Contour 6fr 26cm Large Inner Lumen Low Profile Bladder Ag Taper Latex [id number] - [id number] - Implanted (Right) Ureter Inventory item: [employer] BEN Contour 6fr 26cm Large Inner Lumen Low Profile Bladder Ag Taper Latex Free 180-223 Model/Cat number: [id number] Solar 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: [employer] Lot number: [id number] As of 09/27/2023 Status: Implanted [employer] [place] Ben Contour 6fr 26cm Large Inner Lumen Low Profile Bladder Ag Taper Latex [id number] - [id number] - Implanted (Right) Ureter Inventory item: [employer] BEN Contour 6fr 26cm Large Inner Lumen Low Profile Bladder Ag Taper Latex Free 180-223 Model/Cat number: [id number] Solar 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: [employer] Lot number: [id number] As of 10/04/2023 Status: Implanted General Precautions (If Blank, None Found): Isolation Status: No active isolations Nutritional Status and in-house recommendations: Dietary Orders (From admission, onward) Start Ordered 10/04/23826 Adult Diet Regular Diet effective now Question: ([facility]) Diet type Answer: Regular 10/04/23826 Anticoagulation Indication: INR: 09/06/2023: 1.08 Warfarin Administrations (last 168 hours) None Oxygen Status: O2 Therapy for the past 12 hrs: O2 Therapy O2 Flow Rate (L/min) 10/04/23 0923 None (Room air) -- 10/04/23 0845 None (Room air) -- 10/04/23 0755 None (Room air) -- 10/04/23 0750 Supplemental oxygen 6 L/min Wound Care Instructions Active LDAs (If Blank, None Found): Peripheral IV 10/02/23 20 G Anterior;Right Forearm (Active) Placement Date/Time: 10/02/23 1335 Type: Angiocath Size (Gauge): 20 G Location Orientation: Anterior;Right Location: Forearm Site Prep: Chlorhexidine Comfort Measures: Position of comfort Local Anesthetic: None Technique: Ultrasound guidance ... Patient Emergency Contact: Primary Emergency Contact: MERON BLANKENSHIP Immunization Status at Discharge There is no immunization history on file for this patient. Doron Boudreaux MD documented in this encounter Discharge Instructions * Discharge Instructions* Doron Boudreaux MD - 10/04/2023 9:33 AM CDT Take cefdinir to treat your UTI. Dr. Landa put a new stent in- his office will call to schedule follow up. Your kidney function was down a bit- get your labs drawn on or Tuesday with your primary care doctor. If you have worsening pain, fevers, nausea, or diarrhea call your doctor right away. documented in this encounter Medications at Time of Discharge acetaminophen (TYLENOL) 500 mg tablet Take 2 tablets (1,000 mg total) by mouth every 6 (six) hours as needed for pain, headaches or fever amLODIPine (NORVASC) 10 mg tablet Take 1 tablet (10 mg total) by mouth daily 30 tablet 4 06/25/19 25 aspirin 81 mg chewable [...] abdominal pain) 120 tablet 4 09/09/19 25 ergocalciferol (VITAMIN D) 50,000 unit capsule Take 1 capsule (50,000 Units total) by mouth once a week for 7 doses 7 capsule 4 hydrALAZINE (APRESOLINE) 50 mg tablet Take 1 [...] (Bladder spasms/discomfort ) 30 tablet 3 4 ondansetron ODT (ZOFRAN-ODT) 4 mg disintegrating [...] day To prevent constipation 40 tablet 3 cefdinir (OMNICEF) 300 mg capsuleIndications: Urinary Tract/Genitourinary Infection Take 1 capsule (300 mg total) by mouth 2 (two) times a day for 26 doses 26 capsule 4 10/17/19 24 amitriptyline (ELAVIL) 25 mg tablet Take 1 tablet (25 mg total) by mouth nightly 30 tablet 1 4 05/29/20 24 gabapentin (NEURONTIN) 600 mg tablet Take 1 tablet (600 mg total) by mouth 3 (three) times a day 02/28/20 24 HYDROcodone-acetami nophen (NORCO) 5-325 mg per tabletIndications:P ain Take 1 tablet by mouth every 6 (six) hours as needed for pain 15 tablet 4 10/07/19 24 labetaloL (NORMODYNE,TRANDATE ) 200 mg tablet Take 2 tablets (400 mg total) by mouth 2 (two) times a day 120 tablet 1 4 11/08/19 24 QUEtiapine (SEROquel) 50 mg tablet Take 1 tablet (50 mg total) by mouth nightly 30 tablet 1 4 05/29/20 24 tamsulosin (FLOMAX) 0.4 mg extended release capsule Take 1 capsule (0.4 mg total) by mouth daily 4 10/07/19 24 documented as of this encounter Ordered Prescriptions Prescription Sig Dispense Quantity Refills Last Filled Start Date End Date HYDROcodone-acetam inophen (NORCO) 5-325 mg per tabletIndications: Pain Take 1 tablet by mouth every 6 (six) hours as needed for pain 15 tablet 10/04/2023 4 cefdinir (OMNICEF) 300 mg capsuleIndications :Urinary Tract/Genitourinar y Infection Take 1 capsule (300 mg total) by mouth 2 (two) times a day for 26 doses 26 capsule 10/04/2023 4 documented in this encounter Discharge Disposition Disposition Code Departure Means Destination Comment s Discharge to home or self care documented in this encounter Progress Notes * Otoniel Landa MD - 10/04/2023 6:34 AM CDT [facility] Urology Progress Note Assessment & Plan: Eriberto Chau is a 33 y.o. male with a diagnosis of #nephrolithiasis, #renal insufficiency, #UTI #nephrolithiasis. Bilateral. Recent stone surgery 09/26. Aware that there are small stones. Small ureteral stone. - Pain control/nausea control suboptimal. - cysto right ureteral stent placement #renal insufficiency. Cr. 1.7. Baseline 1-1.2. Continue to monitor. - BMP pending today #UTI. Catheter in place. WBC 7.5 - Antibiotics per primary team. - Urine culture 10/03/23: in process Interval Data: Subjective Interval History: continues to have nausea, right sided discomfort. Feel like shit. Objective Vitals: 24hr Min/Max: Temp Min: 36.6 ??C (97.8 ??F) Max: 39.3 ??C (102.8 ??F) Pulse Min: 82 Max: 107 BP Min: 94/66 Max: 141/86 Resp Min: 18 Max: 24 SpO2 Min: 94 % Max: 98 % Most Recent : Vitals: 10/04/23 0527 BP: 141/86 Pulse: 82 Resp: 18 Temp: SpO2: 97% I/O last 2 completed shifts: In: - Out: 1700 [Urine:1700] I/O this shift: In: - Out: 3000 [Urine:3000] Physical Exam: Gen: male in mild distress. Neuro: Alert, conversation appropriate Skin: No rashes or lesions of exposed skin Head: normocephalic Ears: Hearing normal Pulm: Respirations non-labored. Abdomen: Soft. Non-tender. Non-distended. Right flank pain. Genitourinary: clear MSK: Ambulates without assistance. Moves all 4 extremities. Lab/Radiology/Diagnostic Review: Laboratory review: Lab results in the last 24 hours: Recent Results (from the past 24 hour(s)) Basic metabolic panel Collection Time: 10/03/23 8:01 AM Result Value Ref Range Sodium 134 (L) 135 - 145 mmol/L Potassium, pl 3.3 3.3 - 4.9 mmol/L Chloride 100 97 - 110 mmol/L CO2 22 22 - 32 mmol/L Anion gap 12 2 - 15 mmol/L BUN 15 6 - 25 mg/dL Creatinine 1.15 0.80 - 1.30 mg/dL Glucose 95 70 - 199 mg/dL Calcium 8.4 (L) 8.5 - 10.3 mg/dL CBC with auto differential Collection Time: 10/03/23 8:01 AM Result Value Ref Range WBC 6.3 3.8 - 9.9 K/cumm Hgb 10.0 (L) 13.0 - 17.5 g/dL Hct 31.1 (L) 38.9 - 50.3 % Plt 230 150 - 400 K/cumm MPV 9.3 9.1 - 12.3 fL RBC 3.35 (L) 4.30 - 5.80 M/cumm MCV 92.8 81.3 - 96.4 fL MCH 29.9 27.1 - 33.3 pg MCHC 32.2 (L) 32.3 - 35.7 g/dL RDW CV 15.0 (H) 11.1 - 14.9 % RDW SD 50.0 (H) 35.7 - 48.1 fL NRBC abs 0.00 0.00 - 0.01 K/cumm Magnesium Collection Time: 10/03/23 8:01 AM Result Value Ref Range Magnesium 1.9 1.4 - 2.5 mg/dL Differential, auto Collection Time: 10/03/23 8:01 AM Result Value Ref Range Neutrophil abs 4.7 1.5 - 6.5 K/cumm Imm gran abs 0.1 0.0 - 0.1 K/cumm Lymphocyte abs 0.6 (L) 0.8 - 3.3 K/cumm Monocyte abs 1.0 (H) 0.2 - 0.8 K/cumm Eosinophil abs 0.0 0.0 - 0.5 K/cumm Basophil abs 0.0 0.0 - 0.1 K/cumm Neutrophil pct 74.0 % Imm gran pct 0.8 % Lymphocyte pct 9.7 % Monocyte pct 15.2 % Eosinophil pct 0.0 % Basophil pct 0.3 % eGFR Collection Time: 10/03/23 8:01 AM Result Value Ref Range eGFR 87 >=60 mL/min/1.73 m2 * Kim Patel MD - 10/04/2023 12:58 AM CDT Field Support Rep PN Patient with fever overnight- T 102.7 BP 97//65 P 73 RR 18 Fever due to acute pyelonephritis/nephrolithiasis- continue with antipyretics. Did not respond to tylenol. He received a dose of ibuprofen, not ideal but since tylenol not helping with the fever- okayed the one time dose. Send blood cultures, continue rocephin. Will give a fluid bolus of 500cc; then ivf NS at 125cc/hr; hold the antihypertensive for now; place holding parameters for labetelol. Urology following- planning for stent in the morning. If condition worsens overnight, will call urologyurgently. * Yadira Saenz RD - 10/03/2023 4:53 PM CDT NUTRITION ASSESSMENT Nutrition Status: Patient at risk for malnutrition, but does not meet ASPEN criteria for malnutrition. REASON FOR ASSESSMENT: Consult/Referral - At Risk MST Score Encounter Date: 10/03/23 4:53 PM Admission Date: 10/02/2023 LOS: 1 days HPI: Patient is a 33 y.o. male presenting for pyelonephritis. Recent kidney stone surgery 09/26 per notes. Also noted type B aortic dissection at [facility] April 2023, TEVAR. Objective Past Medical History: Diagnosis Date Abdominal pain Anxiety Aortic dissection (HCC) Depression Hypertension Kidney stones Memory loss Past Surgical History: Procedure Laterality Date ABDOMINAL AORTIC ANEURYSM REPAIR Social History Tobacco Use Smoking status: Never Smokeless tobacco: Never Substance and Sexual Activity Drug use: Not Currently Types: Marijuana Sexual activity: Defer Alcohol Use: Not At Risk (09/27/2023) AUDIT-C Frequency of Alcohol Consumption: Never Average Number of Drinks: Patient does not drink Frequency of Binge Drinking: Never MEDICATION/LAB REVIEW: Scheduled Meds: amitriptyline, 25 mg, oral, Nightly amLODIPine, 10 mg, oral, Daily cefTRIAXone, 2,000 mg, intravenous, Q24H enoxaparin, 40 mg, subcutaneous, Daily-2100 gabapentin, 600 mg, oral, TID hydrALAZINE, 50 mg, oral, TID labetaloL, 400 mg, oral, BID potassium chloride, 20 mEq, intravenous, Q2H QUEtiapine, 50 mg, oral, Nightly senna-docusate, 2 tablet, oral, BID sodium chloride 0.9%, 0.5-20 mL, intra-catheter, Q8H SUSAN tamsulosin, 0.4 mg, oral, Daily Continuous Infusions: PRN Meds: acetaminophen capsaicin sodium chloride 0.9% dicyclomine HYDROcodone-acetaminophen hydrocortisone HYDROmorphone hyoscyamine ondansetron ODT OR ondansetron oxyBUTYnin polyethylene glycol prochlorperazine ramelteon sodium chloride 0.9% Recent Labs Lab Units 10/03/23 0801 10/02/23 1337 SODIUM mmol/L 134* 138 POTASSIUM PLASMA mmol/L 3.3 3.1* CHLORIDE mmol/L 100 101 CO2 mmol/L 22 25 BUN SERUM mg/dL 15 27* CREATININE mg/dL 1.15 1.70* [id number] mL/min/1.73 m2 87 55* CALCIUM mg/dL 8.4* 9.2 ALBUMIN g/dL -- 4.3 MAGNESIUM mg/dL 1.9 -- Recent Labs Lab Units 10/03/23 0801 10/02/23 1337 09/27/23 1216 GLUCOSE mg/dL 95 93 96 ALT Date Value Ref Range Status 10/02/2023 8 7 - 55 Units/L Final AST Date Value Ref Range Status 10/02/2023 10 10 - 50 Units/L Final Alk phos Date Value Ref Range Status 10/02/2023 90 40 - 130 Units/L Final Lipase Date Value Ref Range Status 10/02/2023 10 10 - 99 Units/L Final Lab Results Component Value Date TRIG 129 06/21/2023 NURSING ASSESSMENT: Last BM Date: 09/30/23 Bowel Sounds (All Quadrants): Hypoactive Toni Scale Score: 21 Vital Signs BP: 132/79 Temp: 37 ??C (98.6 ??F) Pulse: 107 Resp: 24 SpO2: 98 % Intake/Output Summary (Last 24 hours) at 10/03/2023 1653 Last data filed at 10/03/2023 1125 Gross per 24 hour Intake -- Output 2200 ml Net -2200 ml Adult Malnutrition Scoring Tool (MST) What diet do you follow at home?: na Have You Recently Lost Weight Without Trying?: Yes (Comment) How Much Weight Have You Lost?: 34 lb or more Have you been eating poorly because of a decreased appetite?: Yes Malnutrition Screening Tool (MST) Score: 5 Within the past 12 months, you worried that your food would run out before you got the money to buymore.: Patient declined Within the past 12 months, the food you bought just didn't last and you didn't have money to get more.: Patient declined Anthropometrics Weight: 94.8 kg (208 lb 14.4 oz) Admission Weight : 94.8 kg Weight Change: 1.76 kg (3.90 lbs) IBW/kg (Calculated) : 72.6 kg Height: 175.3 cm (5' 9 ) Weight in (lb) to have BMI = 25: 168.9 BMI (Calculated): 30.8 Wt Readings from Last 10 Encounters: 10/02/23 94.8 kg (208 lb 14.4 oz) 09/27/23 96.6 kg (212 lb 14.4 oz) 09/27/23 96.2 kg (212 lb) 09/07/23 93 kg (205 lb) 08/23/23 93 kg (205 lb) 08/03/23 94.8 kg (209 lb) 07/26/23 97.5 kg (215 lb) 07/20/23 96.8 kg (213 lb 6.4 oz) 07/04/23 97.5 kg (215 lb) 06/24/23 98.8 kg (217 lb 13 oz) ESTIMATED NEEDS: Total Kcal/kg Estimated Needs : 1989.88 Kcal/k. Type of Weight Used for Estimated Kcals: Current Total Protein Estimated Needs (gm): 94.76 Protein Needs Based on g/k.0 Type of Weight Used for Estimated Protein : Current Dietary Orders (From admission, onward) Start Ordered 10/03/23 0001 NPO Diet Diet effective midnight 10/02/232051 Allergies: Reviewed. IMPRESSION: Consult for unintentional weight loss, also noted MST 5 for weight loss and poor intake. Reviewed RD notes from 04/2023, 05/2022, 06/2022 and 08/2022 admissions at [facility]. April admission noted 236lb with fluid overload and diuresis planned. May admission noted acute moderate malnutrition and later May admission noted diuresis down to 212lb. June admission noted chronic severe malnutrition with weight loss noted. August 2023 admission noted weight of 205lb and at risk for malnutrition but did not meet. Per weights pulled into this note pt was 217lb 06/24. Current weight is 208lb per standing scale. Pt seemed irritable at visit. RN noted pt with n/v thisAM. Pt wanting food at visit. He reports poor intake since surgery and weight loss, says ZARI 242lb.He notes just recently finishing full meal for first time. Declines Ensure drinks, eventually agreed to prostat smoothies. No significant recent weight loss per documentation in weights. Possible mild malnutrition based onreported poor intake. ASPEN MALNUTRITION ASSESSMENT: Date of completion: 10/03/23 NUTRITION FOCUSED PHYSICAL EXAM: Completed. Subcutaneous Fat Loss Orbital Region - Surrounding the Eye: Slightly bulged fat pads Cheek Region - Buccal Fat: Full, round filled-out cheeks Upper Arm Region - Triceps/Biceps: Ample fat tissue obvious between folds of skin Muscle Loss [place] Region - Temporalis Muscle: Can see/feel well-defined muscle Clavicle Bone Region - Pectoralis Major, Deltoid, Trapezius Muscles: Not visible in male, visible but not prominent in female Dorsal Hand - Interosseous Muscle: Muscle bulges, could be flat in some well nourished people Posterior Calf Region - Gastrocnemius Muscle: Not well developed, Well-developed bulb of muscle NUTRITION DIAGNOSIS: Nutrition Diagnosis 1: Predicted suboptimal energy intake Related to: Acute illness/injury, Nausea,Vomiting, Loss of appetite Evidenced by: Patient interview, Physical finding INTERVENTION(S): Summary: Medical food supplement, Meals and snacks, Encouragement Prostat Smoothies BID when diet allows GOAL(S): Oral intake to meet 75% estimated nutritional needs by next assessment, Advance to oral intake as medically able, Tolerance of medical food supplement by next assessment MONITORING/EVALUATION: Diet advancement, Plan of care, PO intake, Labs, Supplement tolerance * Ronak Thomas MD - 10/03/2023 4:47 PM CDT Urology progress note - consult f/up from this AM Still having colicky pain this pm. We discussed obs for another 12 hours vs stent He favors to observe but if not improved may stent in am My partners to see tmw Ronak Thomas MD ADDENDUM - HE HAS BEEN PLACED ON THE SCHEDULE WITH DIANNA LANDA FOR STEMT TOMORROW AM if pain continues. NPO after MN please. Ronak Thomas MD * Doron Boudreaux MD - 10/03/2023 2:02 PM CDT Daily Progress Note Division of Hospital Medicine Name: Eriberto Chau Today: October 03, 2023 : 1990 Age: 33 y.o. male Admit: 10/02/2023 Bed: [id number] Subjective Chief complaint: pyelo Interval History: ongoing pain, int n/v Objective Medications: Scheduled: amitriptyline, 25 mg, oral, Nightly amLODIPine, 10 mg, oral, Daily cefTRIAXone, 2,000 mg, intravenous, Q24H enoxaparin, 40 mg, subcutaneous, Daily-2100 gabapentin, 600 mg, oral, TID hydrALAZINE, 50 mg, oral, TID labetaloL, 400 mg, oral, BID QUEtiapine, 50 mg, oral, Nightly senna-docusate, 2 tablet, oral, BID sodium chloride 0.9%, 0.5-20 mL, intra-catheter, Q8H SUSAN tamsulosin, 0.4 mg, oral, Daily Infusions: PRN: acetaminophen capsaicin sodium chloride 0.9% dicyclomine HYDROcodone-acetaminophen hydrocortisone HYDROmorphone hyoscyamine ondansetron ODT OR ondansetron oxyBUTYnin polyethylene glycol prochlorperazine ramelteon sodium chloride 0.9% Vitals: 24hr Min/Max: Temp Min: 36.9 ??C (98.4 ??F) Max: 37.4 ??C (99.3 ??F) Pulse Min: 86 Max: 110 BP Min: 94/70 Max: 160/76 Resp Min: 14 Max: 24 SpO2 Min: 91 % Max: 100 % Most Recent: Vitals: 10/03/23 1018 BP: 136/69 Pulse: 91 Resp: Temp: SpO2: Intake/Output Summary (Last 24 hours) at 10/03/2023 1339 Last data filed at 10/03/2023 1125 Gross per 24 hour Intake -- Output 2300 ml Net -2300 ml Exam R cva ttp Tachy diaphoretic Lab/Diagnostic Review: Recent Results (from the past 36 hour(s)) CBC with auto differential Collection Time: 10/02/23 1:37 PM Result Value Ref Range WBC 7.5 3.8 - 9.9 K/cumm Hgb 10.7 (L) 13.0 - 17.5 g/dL Hct 32.2 (L) 38.9 - 50.3 % Plt 259 150 - 400 K/cumm MPV 9.4 9.1 - 12.3 fL RBC 3.62 (L) 4.30 - 5.80 M/cumm MCV 89.0 81.3 - 96.4 fL MCH 29.6 27.1 - 33.3 pg MCHC 33.2 32.3 - 35.7 g/dL RDW CV 14.8 11.1 - 14.9 % RDW SD 48.2 (H) 35.7 - 48.1 fL NRBC abs 0.00 0.00 - 0.01 K/cumm Comprehensive metabolic panel Collection Time: 10/02/23 1:37 PM Result Value Ref Range Sodium 138 135 - 145 mmol/L Potassium, pl 3.1 (L) 3.3 - 4.9 mmol/L Chloride 101 97 - 110 mmol/L CO2 25 22 - 32 mmol/L Anion gap 12 2 - 15 mmol/L BUN 27 (H) 6 - 25 mg/dL Creatinine 1.70 (H) 0.80 - 1.30 mg/dL Glucose 93 70 - 199 mg/dL Calcium 9.2 8.5 - 10.3 mg/dL Bilirubin, total 0.4 0.1 - 1.2 mg/dL Protein, pl 8.0 6.5 - 8.5 g/dL Albumin 4.3 3.5 - 5.0 g/dL Alk phos 90 40 - 130 Units/L ALT 8 7 - 55 Units/L AST 10 10 - 50 Units/L Lipase Collection Time: 10/02/23 1:37 PM Result Value Ref Range Lipase 10 10 - 99 Units/L Differential, auto Collection Time: 10/02/23 1:37 PM Result Value Ref Range Neutrophil abs 6.0 1.5 - 6.5 K/cumm Imm gran abs 0.0 0.0 - 0.1 K/cumm Lymphocyte abs 0.5 (L) 0.8 - 3.3 K/cumm Monocyte abs 0.9 (H) 0.2 - 0.8 K/cumm Eosinophil abs 0.1 0.0 - 0.5 K/cumm Basophil abs 0.0 0.0 - 0.1 K/cumm Neutrophil pct 79.8 % Imm gran pct 0.5 % Lymphocyte pct 7.1 % Monocyte pct 11.5 % Eosinophil pct 0.8 % Basophil pct 0.3 % eGFR Collection Time: 10/02/23 1:37 PM Result Value Ref Range eGFR 55 (L) >=60 mL/min/1.73 m2 Urinalysis reflex to microscopic and culture Urine, bladder Collection Time: 10/02/23 1:56 PM Specimen: Urine, bladder Result Value Ref Range Color, ur Tessa Yellow Clarity, ur Turbid (A) Clear Specific gravity, ur 1.023 1.003 - 1.030 pH, urine 6.0 Protein, ur ql 2+ (A) Negative Glucose, ur ql Negative Negative Ketones, ur Negative Negative Bilirubin, ur Negative Negative Blood, ur 3+ (A) Negative Urobilinogen, ur <2.0 <2.0 mg/dL Nitrite, ur Negative Negative Leukocyte esterase, ur 4+ (A) Negative UA reflex comment Reflex to microscopic UA will be performed. Urinalysis, microscopic only Collection Time: 10/02/23 1:56 PM Result Value Ref Range WBC, ur >50 (A) 0 - 5 /HPF RBC, ur >50 (A) 0 - 2 /HPF Epithelial cells, squamous, ur 1-5 0 - 5 /HPF Bacteria, ur 3+ (A) Mucous, ur Present (A) Culture Reflex Comment Reflex to urine culture will be performed. Urine culture Urine, bladder Collection Time: 10/02/23 1:56 PM Specimen: Urine, bladder Result Value Ref Range Report Preliminary Report: Specimen received and processed Urinalysis reflex to microscopic and culture Urine, clean voided Collection Time: 10/03/23 1:00 AM Specimen: Urine, clean voided Result Value Ref Range Color, ur Tessa Yellow Clarity, ur Turbid (A) Clear Specific gravity, ur 1.035 (H) 1.003 - 1.030 pH, urine 6.0 Protein, ur ql 1+ (A) Negative Glucose, ur ql Negative Negative Ketones, ur Negative Negative Bilirubin, ur Negative Negative Blood, ur 3+ (A) Negative Urobilinogen, ur <2.0 <2.0 mg/dL Nitrite, ur Negative Negative Leukocyte esterase, ur 3+ (A) Negative UA reflex comment Reflex to microscopic UA will be performed. Urinalysis, microscopic only Collection Time: 10/03/23 1:00 AM Result Value Ref Range WBC, ur >50 (A) 0 - 5 /HPF RBC, ur >50 (A) 0 - 2 /HPF Culture Reflex Comment Reflex to urine culture will be performed. Urine culture Urine, clean voided Collection Time: 10/03/23 1:00 AM Specimen: Urine, clean voided Result Value Ref Range Report Preliminary Report: Specimen received and processed Basic metabolic panel Collection Time: 10/03/23 8:01 AM Result Value Ref Range Sodium 134 (L) 135 - 145 mmol/L Potassium, pl 3.3 3.3 - 4.9 mmol/L Chloride 100 97 - 110 mmol/L CO2 22 22 - 32 mmol/L Anion gap 12 2 - 15 mmol/L BUN 15 6 - 25 mg/dL Creatinine 1.15 0.80 - 1.30 mg/dL Glucose 95 70 - 199 mg/dL Calcium 8.4 (L) 8.5 - 10.3 mg/dL CBC with auto differential Collection Time: 10/03/23 8:01 AM Result Value Ref Range WBC 6.3 3.8 - 9.9 K/cumm Hgb 10.0 (L) 13.0 - 17.5 g/dL Hct 31.1 (L) 38.9 - 50.3 % Plt 230 150 - 400 K/cumm MPV 9.3 9.1 - 12.3 fL RBC 3.35 (L) 4.30 - 5.80 M/cumm MCV 92.8 81.3 - 96.4 fL MCH 29.9 27.1 - 33.3 pg MCHC 32.2 (L) 32.3 - 35.7 g/dL RDW CV 15.0 (H) 11.1 - 14.9 % RDW SD 50.0 (H) 35.7 - 48.1 fL NRBC abs 0.00 0.00 - 0.01 K/cumm Magnesium Collection Time: 10/03/23 8:01 AM Result Value Ref Range Magnesium 1.9 1.4 - 2.5 mg/dL Differential, auto Collection Time: 10/03/23 8:01 AM Result Value Ref Range Neutrophil abs 4.7 1.5 - 6.5 K/cumm Imm gran abs 0.1 0.0 - 0.1 K/cumm Lymphocyte abs 0.6 (L) 0.8 - 3.3 K/cumm Monocyte abs 1.0 (H) 0.2 - 0.8 K/cumm Eosinophil abs 0.0 0.0 - 0.5 K/cumm Basophil abs 0.0 0.0 - 0.1 K/cumm Neutrophil pct 74.0 % Imm gran pct 0.8 % Lymphocyte pct 9.7 % Monocyte pct 15.2 % Eosinophil pct 0.0 % Basophil pct 0.3 % eGFR Collection Time: 10/03/23 8:01 AM Result Value Ref Range eGFR 87 >=60 mL/min/1.73 m2 I have reviewed the laboratory results. Imaging Results: CT Abdomen Pelvis W Contrast Narrative: EXAMINATION: Computed tomography of the abdomen and pelvis without intravenous contrast HISTORY: Flank pain TECHNIQUE: Transaxial computed tomographic images of the abdomen and pelvis were obtained without intravenous contrast. Of note, 93 mL Optiray 350 venous contrast is documented, but there is no contrast opacification in any of the vessels on this examination, suggesting a technical failure. COMPARISON: 09/27/2023 FINDINGS: Endoluminal stent is noted within the descending thoracic aorta and extends to just above the aortic bifurcation. 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 The dissection flap can be seen terminating in the left common iliac artery. The stomach and duodenum are grossly normal. The noncontrast appearance of the liver is normal. The gallbladder is nondilated. The pancreas, spleen and adrenal glands are normal. There is mild right hydronephrosis and there are multiple punctate stones in the right renal pelvis. Several tiny stones are noted in the right ureter, which is dilated and which is surrounded by inflammatory stranding. No stones are evident on the left. No retroperitoneal or pelvic adenopathy. The colon and small bowel are normal in caliber. There is no ascites. The urinary bladder is mildly distended. No stones are evident within the urinary bladder. No acute or suspicious osseous findings. Impression: Mild right hydroureteronephrosis with multiple punctate stones in the right renal collecting system and several stones in the right ureter. None of the ureteral stones exceeds 2 mm in size. Electronically signed by: Brando Kumar M.D. I have independently reviewed and interpreted . Doron Boudreaux MD 10/03/2023 Assessment/Plan Weight loss Assessment & Plan Consult nutrition Syncope Assessment & Plan Seems most likely to be hypovolemia related, however has complicated history with aortic dissection. -- Follow on tele -- Obtain ECHO ANGI (acute kidney injury) (HCC) Assessment & Plan Scr improving Cont ivf Rpt bmp in am Labs rev Lab Results Component Value Date GLUCOSE 95 10/03/2023 CALCIUM 8.4 (L) 10/03/2023 SODIUM 134 (L) 10/03/2023 POTASSIUM 3.3 10/03/2023 CO2 22 10/03/2023 CHLORIDE 100 10/03/2023 BUNSER 15 10/03/2023 CREATININE 1.15 10/03/2023 Hypokalemia Assessment & Plan Rpt kcl 60 meq IV Lab Results Component Value Date GLUCOSE 95 10/03/2023 CALCIUM 8.4 (L) 10/03/2023 SODIUM 134 (L) 10/03/2023 POTASSIUM 3.3 10/03/2023 CO2 22 10/03/2023 CHLORIDE 100 10/03/2023 BUNSER 15 10/03/2023 CREATININE 1.15 10/03/2023 HTN (hypertension) Assessment & Plan Continue home labetalol, hydralazine, amlodipine Dissection of aorta, unspecified portion of aorta (HCC) Assessment & Plan Follows with Dr Abarca Cont antihypertensives * Pyelonephritis Assessment & Plan Cont ctx F/u cultures Cont ivf Cont flomax Uro consulted, will give diet based on f/u uro recs this afternoon * Raffi Carolina RPh - 10/02/2023 3:17 PM CDT Pharmacy Note - Ceftriaxone Dosing Ceftriaxone will be dose adjusted to 2 gm every 24 hours for urinary tract/genitourinary infection according to the following pharmacy dosing guidelines: Indication Recommendation Usual dose 2 grams every 24 hours Severe infection (including but not limited to: Enterococcus endocarditis or COMPLIANCE MANAGER infection) 2 gramsevery 12 hours Doses may be adjusted based on laboratory results and the pharmacokinetic and pharmacodynamic principles of the medication and the patient. A serum creatinine should be measured at least weekly. Raffi Carolina RPh documented in this encounter H&P Notes * Otoniel Landa MD - 10/04/2023 6:33 AM CDT I have reviewed the H&P, examined the patient, and endorse the findings as written. Plan of Care : Based on the above findings, I consider Eriberto Chau to be an acceptable risk for : Procedure(s): CYSTOSCOPY RETROGRADE PYELOGRAM - INSERTION URETERAL STENT Source Note - Otoniel Landa MD - 10/03/2023 7:40 AM CDT Images from the original note were not included. [facility] Urology Consultation Patient Name: Eriberto Chau Physician requesting consultation: Deric (primary team) Consultation reason: pyelonephr Assessment & Plan: Eriberto Chau is a 33 y.o. male with a diagnosis of #nephrolithiasis, #renal insufficiency, #UTI I have personally reviewed the imaging with the patient (CT scan films). My impression is: - Bilateral kidneys approximately symmetric in size and within normal limits. - Right kidney: mild right hydro small stones - Left kidney:punctate stones - Urinary tract stones: small right ureteral stones - Bladder: no masses. #nephrolithiasis. Bilateral. Recent stone surgery 09/26. Aware that there are small stones. - continue conservative management. Will evaluate this afternoon to determine if further intervention (e.g. ureteral stent) is indicated. #renal insufficiency. Cr. 1.7. Baseline 1-1.2. Continue to monitor. #UTI. Catheter in place. WBC 7.5 - Antibiotics per primary team. - Urine culture pending WIll follow. Chief Complaint: Chief Complaint Patient presents with Post-op Problem Blood in Urine History of Present Illness: Eriberto Chau is a 33 y.o. male admitted for flank pain, possible pyeloneprhitis. History of TEVAR. Endoscopic stone surgery 09/26 for obstructing right stone. Pulled stent early and had subsequentright flank/abdominal pain. Reports some vertigo in the interim and nausea/vomiting. Went to ED. CTshowed mild right hydro. Catheter placed and admitted for management of pain. No fevers. Nausea persists. Pain control improving but not optimized. The patient's past medical, surgical, medication, allergy, family, and social histories were reviewed and are unchanged except as stated above in the HPI above. Histories: The patient's past medical history is notable for: Past Medical History: Diagnosis Date Abdominal pain Anxiety Aortic dissection (HCC) Depression Hypertension Kidney stones Memory loss The patient's past surgical history is notable for: Past Surgical History: Procedure Laterality Date ABDOMINAL AORTIC ANEURYSM REPAIR The patient is currently taking the following medications: Current Facility-Administered Medications Medication Dose Route Frequency Provider Last Rate Last Admin acetaminophen (TYLENOL) tablet 650 mg 650 mg oral Q4H PRN Yew, Seow Voon, MD 650 mg at 10/02/232106 amitriptyline (ELAVIL) tablet 25 mg 25 mg oral Nightly Loyda Hernandez MD 25 mg at 10/02/232106 amLODIPine (NORVASC) tablet 10 mg 10 mg oral Daily Radha Dixon MD capsaicin (ZOSTRIX) 0.025 % cream 1 Application 1 Application topical BID PRN Radha Dixon MD Carrier Fluids for Secondary Infusion - 0.9% Sodium Chloride 30 mL intravenous PRN Loyda Hernandez MD cefTRIAXone (ROCEPHIN) 2,000 mg/20 mL in sterile water (premix) 2,000 mg 2,000 mg intravenous Q24H Loyda Hernandez MD 2,000 mg at 10/02/231533 dicyclomine (BENTYL) capsule 20 mg 20 mg oral Q6H PRN Radha Dixon MD enoxaparin (LOVENOX) syringe 40 mg 40 mg subcutaneous Daily-2100 Loyda Hernandez MD 40 mg at 10/02/232107 gabapentin (NEURONTIN) tablet 600 mg 600 mg oral TID Loyda Hernandez MD hydrALAZINE (APRESOLINE) tablet 50 mg 50 mg oral TID Radha Dixon MD 50 mg at 10/02/232106 HYDROcodone-acetaminophen (NORCO) 5-325 mg per tablet 1 tablet 1 tablet oral Q4H PRN Craig Reed MD 1 tablet at 10/03/2341 hydrocortisone (ANUSOL-HC) 2.5 % rectal cream rectal BID PRN Radha Dixon MD HYDROmorphone (DILAUDID) injection 1 mg 1 mg intravenous Q2H PRN Mellisa Woo MD 1 mg at 10/03/23523 hyoscyamine (OSCIMIN) disintegrating tablet 125 mcg 125 mcg oral Q4H PRN Radha Dixon MD labetaloL (NORMODYNE,TRANDATE) tablet 400 mg 400 mg oral BID Radha Dixon MD 400 mg at 10/02/232106 ondansetron ODT (ZOFRAN-ODT) disintegrating tablet 4 mg 4 mg oral Q6H PRN Loyda Hernandez MD 4 mg at 10/03/23436 Or ondansetron (ZOFRAN) injection 4 mg 4 mg intravenous Q6H PRN Loyda Hernandez MD 4 mg at 10/02/232034 oxyBUTYnin (DITROPAN) tablet 5 mg 5 mg oral TID PRN Loyda Hernandez MD polyethylene glycol (MIRALAX) packet 17 g 17 g oral Daily PRN Radha Dixon MD QUEtiapine (SEROquel) tablet 50 mg 50 mg oral Nightly Loyda Hernandez MD 50 mg at 10/02/232106 ramelteon (ROZEREM) tablet 8 mg 8 mg oral Nightly PRN Radha Dixon MD 8 mg at 10/02/232106 senna-docusate (PERICOLACE) 8.6-50 mg per tablet 2 tablet 2 tablet oral BID Radha Dixon MD 2 tablet at 10/02/232106 sodium chloride 0.9% flush 0.5-20 mL 0.5-20 mL intra-catheter Q8H SUSAN Loyda Hernandez MD sodium chloride 0.9% flush 0.5-20 mL 0.5-20 mL intra-catheter PRN Loyda Hernandez MD sodium chloride 0.9% infusion 100 mL/hr intravenous Continuous Radha Dixon MD 100 mL/hr at 10/03/23437 100 mL/hr at 10/03/23437 tamsulosin (FLOMAX) extended release capsule 0.4 mg 0.4 mg oral Daily Loyda Hernandez MD The patient is allergic to: Allergies Allergen Reactions Lisinopril Angioedema Amoxicillin Hives The patient's past family history is notable for: Family History Problem Relation Age of Onset Depression Mother Anxiety disorder Mother Depression Father Anxiety disorder Sister Depression Sister Depression Brother Anxiety disorder Brother The patient's past social history is notable for: Social History Tobacco Use Smoking status: Never Smokeless tobacco: Never Substance and Sexual Activity Drug use: Not Currently Types: Marijuana Sexual activity: Defer Alcohol Use: Not At Risk (09/27/2023) AUDIT-C Frequency of Alcohol Consumption: Never Average Number of Drinks: Patient does not drink Frequency of Binge Drinking: Never Objective: Physical Exam Gen: male in mild distress secondary to nausea. Neuro: Alert, conversation appropriate Skin: No rashes or lesions of exposed skin Head: normocephalic Ears: Hearing normal Pulm: Respirations non-labored. Abdomen: Soft. Non-tender. Non-distended. No flank pain. Genitourinary: urine clear in emerson MSK: Ambulates without assistance. Moves all 4 extremities. Labs: The following lab results were personally reviewed by me: Lab Results Component Value Date GLUCOSE 93 10/02/2023 CALCIUM 9.2 10/02/2023 SODIUM 138 10/02/2023 POTASSIUM 3.1 (L) 10/02/2023 CO2 25 10/02/2023 CHLORIDE 101 10/02/2023 BUNSER 27 (H) 10/02/2023 CREATININE 1.70 (H) 10/02/2023 Lab Results Component Value Date WBC 7.5 10/02/2023 HGB 10.7 (L) 10/02/2023 HCT 32.2 (L) 10/02/2023 MCV 89.0 10/02/2023 LABPLAT 259 10/02/2023 Lab Results Component Value Date PTH 33 09/06/2023 CALCIUM 9.2 10/02/2023 CAION 4.88 09/06/2023 PHOS 2.6 07/06/2023 No results found for: PSA Radiology: The following images were independently reviewed by me. CT Abdomen Pelvis W Contrast Narrative: EXAMINATION: Computed tomography of the abdomen and pelvis without intravenous contrast HISTORY: Flank pain TECHNIQUE: Transaxial computed tomographic images of the abdomen and pelvis were obtained without intravenous contrast. Of note, 93 mL Optiray 350 venous contrast is documented, but there is no contrast opacification in any of the vessels on this examination, suggesting a technical failure. COMPARISON: 09/27/2023 FINDINGS: Endoluminal stent is noted within the descending thoracic aorta and extends to just above the aortic bifurcation. 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 The dissection flap can be seen terminating in the left common iliac artery. The stomach and duodenum are grossly normal. The noncontrast appearance of the liver is normal. The gallbladder is nondilated. The pancreas, spleen and adrenal glands are normal. There is mild right hydronephrosis and there are multiple punctate stones in the right renal pelvis. Several tiny stones are noted in the right ureter, which is dilated and which is surrounded by inflammatory stranding. No stones are evident on the left. No retroperitoneal or pelvic adenopathy. The colon and small bowel are normal in caliber. There is no ascites. The urinary bladder is mildly distended. No stones are evident within the urinary bladder. No acute or suspicious osseous findings. Impression: Mild right hydroureteronephrosis with multiple punctate stones in the right renal collecting system and several stones in the right ureter. None of the ureteral stones exceeds 2 mm in size. Electronically signed by: Brando Kumar M.D. Pathology: none * Radha Dixon MD - 10/02/2023 7:09 PM CDT DATE OF SERVICE: 10/02/2023 PRIMARY CARE PHYSICIAN: Carl Strickland MD SUBJECTIVE: Patient is a 33 y.o. male with chief complaint of abdominal/flank pain. 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 In May, had TEVAR extension and dissection stent placement. Also hash/o HTN, nephrolithiasis and chronic back pain since the TEVAR. He presented here 09/27/23 for flankpain and was found to have an obstructing right ureteral stone with hydro. Dr Glass from Urology performed a cysto and stent placement. He was supposed to pull his stent out today, but ended up pulling it out Tuesday as it was causing him discomfort. He then presented to the ED again today for right flank and right abdominal pain. He has had nausea/vomiting and chills as well. He noted urine in his blood this morning as well. Given the severe pain and hematuria, he presented to the ED. He also notes that on Wednesday 09/27, he got up from sitting and walked into his kitchen. He felt fuzzy and then passed out. He woke up with his friend standing above him. He reports he has not been eating and drinking well. He does not have a good appetite. He has recently lost 40 pounds. In the ED, he had a CT which showed mild right hydro and multiple small stones, all small. His Cr was 1.7, up from baseline, but decreased from 2.1 earlier this week. His UA showed infection. He was admitted for pain control and IV abx, and potentially urology consultation. Past Medical History: Diagnosis Date Abdominal pain Anxiety Aortic dissection (HCC) Depression Hypertension Kidney stones Memory loss Past Surgical History: Procedure Laterality Date ABDOMINAL AORTIC ANEURYSM REPAIR Allergies Allergen Reactions Lisinopril Angioedema Amoxicillin Hives Social History Tobacco Use Smoking status: Never Smokeless tobacco: Never Substance and Sexual Activity Drug use: Not Currently Types: Marijuana Sexual activity: Defer Alcohol Use: Not At Risk (09/27/2023) AUDIT-C Frequency of Alcohol Consumption: Never Average Number of Drinks: Patient does not drink Frequency of Binge Drinking: Never 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 Lives with his significant other. Has 7 kids and 2 dogs. Family History Problem Relation Age of Onset Depression Mother Anxiety disorder Mother Depression Father Anxiety disorder Sister Depression Sister Depression Brother Anxiety disorder Brother Prior to Admission medications Medication Sig Start Date End Date Taking? Authorizing Provider acetaminophen (TYLENOL) 500 mg tablet Take 2 tablets (1,000 mg total) by mouth every 6 (six) hours as needed for pain, headaches or fever Provider, MD Eli amitriptyline (ELAVIL) 25 mg tablet Take 1 tablet (25 mg total) by mouth nightly 09/09/23 Otoniel Echols MD amLODIPine (NORVASC) 10 mg tablet Take 1 tablet (10 mg total) by mouth daily 06/26/23 06/25/24 Cristobal Chopra MD aspirin 81 mg chewable tablet Take 1 tablet (81 mg total) by mouth daily 05/17/23 05/16/24 Meron Parekh NP capsaicin (ZOSTRIX) 0.025 % cream Apply 1 Application topically 2 (two) times a day as needed for pain ProviderEli MD dicyclomine (BENTYL) 20 mg tablet Take 1 tablet (20 mg total) by mouth every 6 (six) hours as needed (For abdominal pain) 09/09/23 09/08/24 Otoniel Echols MD ergocalciferol (VITAMIN D) 50,000 unit capsule Take 1 capsule (50,000 Units total) by mouth once a week for 7 doses 09/14/23 10/27/23 Otoniel Echols MD gabapentin (NEURONTIN) 600 mg tablet Take 1 tablet (600 mg total) by mouth 3 (three) times a day ProviderEli MD hydrALAZINE (APRESOLINE) 50 mg tablet Take 1 tablet (50 mg total) by mouth 3 (three) times a day 06/25/23 06/24/24 Cristobal Chopra MD HYDROcodone-acetaminophen (NORCO) 5-325 mg per tablet Take 1 tablet by mouth every 6 (six) hours asneeded for pain ProviderEli MD hydrocortisone (ANUSOL-HC) 2.5 % rectal cream Insert into the rectum 2 (two) times a day as needed for hemorrhoids 09/09/23 Otoniel Echols MD hyoscyamine (LEVSIN) 0.125 mg SL tablet Take 1 tablet (0.125 mg total) by mouth every 4 (four) hours as needed (Bladder spasms/discomfort) 09/27/23 Marcus Glass MD labetaloL (NORMODYNE,TRANDATE) 200 mg tablet Take 2 tablets (400 mg total) by mouth 2 (two) times aday 09/09/23 11/08/23 Otoniel Echols MD ondansetron ODT (ZOFRAN-ODT) 4 mg disintegrating tablet Take 1 tablet (4 mg total) by mouth every 8(eight) hours as needed for nausea or vomiting 05/16/23 Meron Parekh, TREE oxyBUTYnin (DITROPAN) 5 mg tablet Take 1 tablet (5 mg total) by mouth 3 (three) times a day as needed (Bladder spasms/discomfort) 09/27/23 Marcus Glass MD QUEtiapine (SEROquel) 50 mg tablet Take 1 tablet (50 mg total) by mouth nightly 09/09/23 Otoniel Echols MD senna-docusate (PERICOLACE) 8.6-50 mg Take 2 tablets by mouth 2 (two) times a day To prevent constipation 05/16/23 Meron Parekh NP tamsulosin (FLOMAX) 0.4 mg extended release capsule Take 1 capsule (0.4 mg total) by mouth daily 09/26/23 Provider, MD Eli tamsulosin (Flomax) 0.4 mg extended release capsule Take 1 capsule (0.4 mg total) by mouth daily Take while stent is in place and for three days after stent removal 09/27/23 10/02/23 Marcus Glass MD Review of Systems Review of Systems Constitutional: Positive for appetite change, chills and unexpected weight change. Negative for fever. HENT: Negative for congestion, rhinorrhea and sore throat. Eyes: Negative for visual disturbance. Respiratory: Negative for cough, chest tightness and shortness of breath. Cardiovascular: Negative for chest pain and palpitations. Gastrointestinal: Positive for abdominal pain, nausea and vomiting. Negative for constipation and diarrhea. Genitourinary: Positive for flank pain and hematuria. Negative for dysuria and frequency. Musculoskeletal: Positive for back pain. Negative for arthralgias. Skin: Negative for rash. Neurological: Positive for syncope and headaches. Negative for weakness and numbness. Hematological: Does not bruise/bleed easily. Psychiatric/Behavioral: Negative for dysphoric mood and suicidal ideas. OBJECTIVE: Vitals: Arrival Vitals [10/02/23 1210] Temp 37.2 ??C (99 ??F) Pulse 96 Resp 18 BP 113/78 SpO2 94 % Temp src Heart Rate Source Patient Position BP Location FiO2 (%) Most Recent : Vitals: 10/02/23 1930 10/02/23199910/02/23205310/02/23 2253 BP: 150/77 145/65 125/98 98/49 BP Location: Right arm Left arm Patient Position: [facility] 30 degrees Lying Pulse: 110 108 106 92 Resp: 16 14 20 18 Temp: 37.4 ??C (99.3 ??F) TempSrc: Oral SpO2: 93% 96% 97% 96% Weight: 94.8 kg (208 lb 14.4 oz) Height: 175.3 cm (5' 9 ) Physical exam: Physical Exam Vitals reviewed. Constitutional: General: He is not in acute distress. Appearance: He is well-developed. He is ill-appearing. Comments: Very uncomfortable HENT: Head: Normocephalic and atraumatic. Nose: Nose normal. Eyes: General: No scleral icterus. Pupils: Pupils are equal, round, and reactive to light. Cardiovascular: Rate and Rhythm: Normal rate and regular rhythm. Heart sounds: No murmur heard. No friction rub. No gallop. Pulmonary: Effort: Pulmonary effort is normal. No respiratory distress. Breath sounds: Normal breath sounds. Abdominal: General: Bowel sounds are normal. There is no distension. Palpations: Abdomen is soft. Tenderness: There is abdominal tenderness. There is right CVA tenderness. Musculoskeletal: General: Normal range of motion. Cervical back: Neck supple. Skin: General: Skin is warm and dry. Findings: No rash. Neurological: Mental Status: He is alert and oriented to person, place, and time. Psychiatric: Behavior: Behavior normal. Lab/Radiology/Diagnostic Review: Recent Results (from the past 24 hour(s)) CBC with auto differential Collection Time: 10/02/23 1:37 PM Result Value Ref Range WBC 7.5 3.8 - 9.9 K/cumm Hgb 10.7 (L) 13.0 - 17.5 g/dL Hct 32.2 (L) 38.9 - 50.3 % Plt 259 150 - 400 K/cumm MPV 9.4 9.1 - 12.3 fL RBC 3.62 (L) 4.30 - 5.80 M/cumm MCV 89.0 81.3 - 96.4 fL MCH 29.6 27.1 - 33.3 pg MCHC 33.2 32.3 - 35.7 g/dL RDW CV 14.8 11.1 - 14.9 % RDW SD 48.2 (H) 35.7 - 48.1 fL NRBC abs 0.00 0.00 - 0.01 K/cumm Comprehensive metabolic panel Collection Time: 10/02/23 1:37 PM Result Value Ref Range Sodium 138 135 - 145 mmol/L Potassium, pl 3.1 (L) 3.3 - 4.9 mmol/L Chloride 101 97 - 110 mmol/L CO2 25 22 - 32 mmol/L Anion gap 12 2 - 15 mmol/L BUN 27 (H) 6 - 25 mg/dL Creatinine 1.70 (H) 0.80 - 1.30 mg/dL Glucose 93 70 - 199 mg/dL Calcium 9.2 8.5 - 10.3 mg/dL Bilirubin, total 0.4 0.1 - 1.2 mg/dL Protein, pl 8.0 6.5 - 8.5 g/dL Albumin 4.3 3.5 - 5.0 g/dL Alk phos 90 40 - 130 Units/L ALT 8 7 - 55 Units/L AST 10 10 - 50 Units/L Lipase Collection Time: 10/02/23 1:37 PM Result Value Ref Range Lipase 10 10 - 99 Units/L Differential, auto Collection Time: 10/02/23 1:37 PM Result Value Ref Range Neutrophil abs 6.0 1.5 - 6.5 K/cumm Imm gran abs 0.0 0.0 - 0.1 K/cumm Lymphocyte abs 0.5 (L) 0.8 - 3.3 K/cumm Monocyte abs 0.9 (H) 0.2 - 0.8 K/cumm Eosinophil abs 0.1 0.0 - 0.5 K/cumm Basophil abs 0.0 0.0 - 0.1 K/cumm Neutrophil pct 79.8 % Imm gran pct 0.5 % Lymphocyte pct 7.1 % Monocyte pct 11.5 % Eosinophil pct 0.8 % Basophil pct 0.3 % eGFR Collection Time: 10/02/23 1:37 PM Result Value Ref Range eGFR 55 (L) >=60 mL/min/1.73 m2 Urinalysis reflex to microscopic and culture Urine, bladder Collection Time: 10/02/23 1:56 PM Specimen: Urine, bladder Result Value Ref Range Color, ur Tessa Yellow Clarity, ur Turbid (A) Clear Specific gravity, ur 1.023 1.003 - 1.030 pH, urine 6.0 Protein, ur ql 2+ (A) Negative Glucose, ur ql Negative Negative Ketones, ur Negative Negative Bilirubin, ur Negative Negative Blood, ur 3+ (A) Negative Urobilinogen, ur <2.0 <2.0 mg/dL Nitrite, ur Negative Negative Leukocyte esterase, ur 4+ (A) Negative UA reflex comment Reflex to microscopic UA will be performed. Urinalysis, microscopic only Collection Time: 10/02/23 1:56 PM Result Value Ref Range WBC, ur >50 (A) 0 - 5 /HPF RBC, ur >50 (A) 0 - 2 /HPF Epithelial cells, squamous, ur 1-5 0 - 5 /HPF Bacteria, ur 3+ (A) Mucous, ur Present (A) Culture Reflex Comment Reflex to urine culture will be performed. Urine culture Urine, bladder Collection Time: 10/02/23 1:56 PM Specimen: Urine, bladder Result Value Ref Range Report Preliminary Report: Specimen received and processed CT Abdomen Pelvis W Contrast Result Date: 10/02/2023 Narrative: EXAMINATION: Computed tomography of the abdomen and pelvis without intravenous contrast HISTORY: Flank pain TECHNIQUE: Transaxial computed tomographic images of the abdomen and pelvis wereobtained without intravenous contrast. Of note, 93 mL Optiray 350 venous contrast is documented, but there is no contrast opacification in any of the vessels on this examination, suggesting a technical failure. COMPARISON: 09/27/2023 FINDINGS: Endoluminal stent is noted within the descending thoracic aorta and extends to just above the aortic bifurcation. 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 The dissection flap can be seen terminating in the left common iliac artery. The stomach and duodenum are grossly normal. The noncontrast appearance of the liver is normal. The gallbladder is nondilated. The pancreas, spleenand adrenal glands are normal. There is mild right hydronephrosis and there are multiple punctate stones in the right renal pelvis. Several tiny stones are noted in the right ureter, which is dilatedand which is surrounded by inflammatory stranding. No stones are evident on the left. No retroperitoneal or pelvic adenopathy. The colon and small bowel are normal in caliber. There is no ascites. The urinary bladder is mildly distended. No stones are evident within the urinary bladder. No acute or suspicious osseous findings. Impression: Mild right hydroureteronephrosis with multiple punctate stones in the right renal collecting system and several stones in the right ureter. None of the ureteral stones exceeds 2 mm in size. Electronically signed by: Brando Kumar M.D. [place] Fluoroscopy < 1 Hour Result Date: 09/27/2023 Narrative: The images from this study are not interpreted by Radiology. Please refer to the physician's procedure / OR operative note. CT Abdomen Pelvis WO Contrast Result Date: 09/27/2023 Narrative: EXAM: CT ABDOMEN PELVIS WO CONTRAST, 09/27/2023 1:40 PM HISTORY: 33-year-old man with history of prior aortic dissection status post endovascular repair of the thoracic and abdominal aorta presents to the ED visit right-sided flank pain radiating to the scrotum, known right-sided renal calculi. TECHNIQUE: CT of the abdomen and pelvis was performed without contrast according to standard protocol COMPARISON: CTA chest abdomen pelvis dated 09/26/2023 from [facility], CT dated 08/23/2023 from [facility] FINDINGS: Mild bibasilar atelectasis. Partially visualized aortic stent graft extending from the superior [id number] in the thoracic aorta to the distal abdominal aorta. There is again dilation of the visualized descending thoracic aorta to 4.3 cm, not significantly changed from 09/06/2023. Known aortic dissection is not well evaluated on this noncontrast exam (and also is not fully imaged). The abdominal arteries arising from true versus false lumen also not well evaluated on this noncontrast exam. 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 There is a poorly defined hypodense lesion in hepatic segment 4 which has previously been shown to be peripherally nodular enhancing with centripetal filling on 08/23/2023 and likely represents a hemangioma. The gallbladder is normal. There is no biliary ductal dilation. There are scattered calcified granulomas in the spleen. The pancreas is unremarkable. The adrenal glands are normal. There are multiple right renal stones measuring up to 4 mm. There are multiple left renal stones measuring up to 2 mm. There is stranding around the proximal right ureter with a 4 mm stone within the proximal right ureter. There is mild prominence of the upstream right ureter and renal pelvis without hydronephrosis. There is no left hydronephrosis. There is a tiny hiatal hernia. There is no dilation of small bowel. There is no acute colonic abnormality identified. The appendix is normal. The urinary bladder is unremarkable. Prostate is normal in appearance. There is no free intraperitoneal air or free fluid. There is no suspicious lymphadenopathy. No acute osseous or superficial soft tissue abnormality. Impression: 1. Stranding around the proximal right ureter with a 4 mm stone within the proximal right ureter. Mild prominence of the upstream right ureter and renal pelvis without hydronephrosis. 2. Multiple bilateral renal calculi. 3. Multiple known vascular findings not well evaluated on this noncontrast exam. Electronically signed by: Christy Dominguez DO MRI Lumbar Spine WO Contrast Result Date: 09/09/2023 Narrative: EXAMINATION: Magnetic resonance imaging (MRI) of the lumbar spine without contrast HISTORY: Low back pain TECHNIQUE: Multiplanar multi-weighted MRI of the lumbar spine was performed without intravenous contrast using the standard protocol. COMPARISON: CT angiogram chest, abdomen and pelvis 09/06/2023 FINDINGS: The alignment of the lumbar spine is normal. Trace Modic type II changes arenoted along the anterior-inferior endplate of L3. Vertebral [...] stenosis. There is no spinal canal stenosis. Impression: Unremarkable MRI lumbar spine. Dictated by: Marlon Alberto MD The radiology attending physician has personally reviewed this study, and had reviewed and/or edited this written report and agrees with it. Electronically signed by: Gus Su MD MRI Sacrum Coccyx WO Contrast Result Date: 09/09/2023 Narrative: EXAMINATION: MRI SACRUM COCCYX WO CONTRAST HISTORY: Low back pain and stiffness. Concernfor inflammatory arthritis/sacroiliitis. FINDINGS: Comparison radiographs 09/07/2023. Multiplanar, multisequence MR examination of the pelvis with specific attention to the sacrum and sacroiliac joints was performed with a multi-coil array. Normal sacroiliac joints without ankylosis, erosion, edema, or sclerosis. Unremarkable appearance of the lumbosacral plexus. The marrow signal of the lower lumbar spine, sacrum, pelvis, and proximal femora is normal. Specifically, there is no evidence of a fracture, stress fracture, or femoral head avascular necrosis. The joint spaces are normal. There is a physiologic amount of fluid within each hip joint. The musculature of the pelvis and proximal femora is symmetric and normal in bulk. The adductor and gluteal tendons and musculature are normal. Thepiriformis muscles are symmetric. The sciatic nerves are normal in course and morphology. The hamstring origins are normal. There is no evidence of bursitis. Limited evaluation of the pelvis is normal. Impression: 1. Normal MRI without evidence of sacroiliitis. Dictated by: Bucky Fair MD The radiology attending physician has personally reviewed this study, and had reviewed and/or edited this written report and agrees with it. Electronically signed by: Renard Jackson M.D. XR Sacroiliac Joints 3 or More Views Result Date: 09/08/2023 Narrative: XR SACROILIAC JOINTS 3 OR MORE VIEWS HISTORY: Pelvic pain. FINDINGS: 3 views of the sacroiliac joints are obtained and compared with 09/06/2023. The sacroiliac joint spaces are preserved. There is no erosion or sclerosis. Hip joint spaces and pubic symphysis are normal. Alignment and soft tissues are normal. Impression: Normal radiograph of the sacroiliac joints. Electronically signed by: Renard Jackson M.D. CTA Chest Abdomen Pelvis (Dissection Protocol CT) Result Date: 09/06/2023 Narrative: EXAMINATION: CT ANGIOGRAPHY OF THE CHEST, ABDOMEN AND PELVIS WITH AND WITHOUT CONTRAST HISTORY: 33-year-old man with history of prior aortic dissection status post endovascular repair of the thoracic and abdominal aorta present to the ED with 10/10 abdominal pain. TECHNIQUE: Computed tomographic images of the chest, abdomen and pelvis were acquired without and intravenous contrast using an angiographic protocol optimized for aortic dissection (aorta). The contrast enhanced transaxialimages were obtained following the intravenous administration of 68 ml of nonionic contrast. Multiplanar reformatted images and three-dimensional images of the aorta and associated vasculature were obtained on the 3-D workstation and sent to the PACS archival system. COMPARISON: Comparison is made with prior CT angiography of the chest abdomen and pelvis dated 08/23/2023. FINDINGS: No suspicious pulmonary nodules. No pleural effusion or pneumothorax. Mild bibasilar atelectasis. The large airways are widely patent. There is no supra clavicular, axillary, or mediastinal lymphadenopathy. There are scattered calcified granulomas. There is calcification of hilar lymph nodes with history of old granulomatous disease. The heart size is normal. No pericardial effusion. The esophagus is normal. There are postsurgical changes of thoracic endovascular aortic repair with proximal attachment site just distal to the left common carotid origin. A left subclavian stent angles but is unchanged in configuration widely patent. The arch vessels are all widely patent. There is unchanged filling of the false lumen of an aortic dissection within the distal thoracic or aorta beginning just above the diaphragmatic hiatus and extending to the level of the infrarenal abdominal aorta unchanged since prior study dated 08/03/2023. Aneurysmal dilation of the abdominal aorta to a maximum of approximately 4.3cm is unchanged. Abdominal aortic stenting with SMA arising from the stented portion. Celiac arteryarising from the false lumen with severe narrowing proximally near its origin and widely patent distally, similar to prior. The right renal artery arises from the stented portion. The left renal artery arises from the true and false lumens unchanged since prior. The distal attachment site of the stent graft is in the infrarenal abdominal aorta just above the origin of the inferior mesenteric artery which remains patent. Dissection flap propagates to the left common iliac artery, unchanged since prior. Both iliac arteries remain widely patent. There is no periaortic stranding. 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 The stomach and duodenal sweep are normal. No liver lesion. Gallbladder is distended without pericholecystic stranding. No intrahepatic or extrahepatic biliary ductal dilatation. The pancreas is normal. The spleen demonstrates granulomas consistent with history of old granulomatous disease. Bilateral adrenal glands are normal. Kidneys enhance symmetrically without hydroureteronephrosis. Small nonobstructive stones in the right kidney. Urinary bladder is normal. Large bowel is normal. The appendix isnormal. The small bowel is normal without signs of bowel obstruction. No retroperitoneal or pelvic lymphadenopathy. No free intraperitoneal air or fluid. No body wall edema. No suspicious osseous lesions.. Impression: 1. 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 No acute change since prior to explain the patient's symptoms. 2. 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 Electronically signed by: Buffy Chang M.D. ASSESSMENT/PLAN: Pyelonephritis Has had recent obstructing right sided ureteral stone with hydro s/p cysto and stent placement on 09/27/23. He pulled the stent Guy. Now back with right flank pain/abdominal pain. CT shows mild right hydro with multiple stones, all small. UA shows infection. Urology thinks more like a pyelo picture at this point -- Urine culture pending -- IVF -- IV abx with ceftriaxone -- Pain control with IV dilaudid -- Urology states no need for acute intervention, if still in pain tomorrow, will need urology consult Hypokalemia Potassium 3.1. Given KCL. Will recheck potassium with magnesium in the AM and replete as appropriate. ANGI (acute kidney injury) (HCC) Cr 1.7 today, down from 2.1 earlier this week. Still up from baseline of 1.2. Will give IVF and monitor renal function closely. Syncope Seems most likely to be hypovolemia related, however has complicated history with aortic dissection. -- Follow on tele -- Obtain ECHO Dissection of aorta, unspecified portion of aorta (HCC) Follows with Dr Abarca, BP control HTN (hypertension) Continue home labetalol, hydralazine, amlodipine Weight loss Consult nutrition CODE STATUS: Full Code ESTIMATED LENGTH OF STAY: Greater than 2 midnights documented in this encounter Consult Notes * Otoniel Landa MD - 10/03/2023 7:40 AM CDT Images from the original note were not included. [facility] Urology Consultation Patient Name: Eriberto Chau Physician requesting consultation: Deric (primary team) Consultation reason: pyelonephr Assessment & Plan: Eriberto Chau is a 33 y.o. male with a diagnosis of #nephrolithiasis, #renal insufficiency, #UTI I have personally reviewed the imaging with the patient (CT scan films). My impression is: - Bilateral kidneys approximately symmetric in size and within normal limits. - Right kidney: mild right hydro small stones - Left kidney:punctate stones - Urinary tract stones: small right ureteral stones - Bladder: no masses. #nephrolithiasis. Bilateral. Recent stone surgery 09/26. Aware that there are small stones. - continue conservative management. Will evaluate this afternoon to determine if further intervention (e.g. ureteral stent) is indicated. #renal insufficiency. Cr. 1.7. Baseline 1-1.2. Continue to monitor. #UTI. Catheter in place. WBC 7.5 - Antibiotics per primary team. - Urine culture pending WIll follow. Chief Complaint: Chief Complaint Patient presents with Post-op Problem Blood in Urine History of Present Illness: Eriberto Chau is a 33 y.o. male admitted for flank pain, possible pyeloneprhitis. History of TEVAR. Endoscopic stone surgery 09/26 for obstructing right stone. Pulled stent early and had subsequentright flank/abdominal pain. Reports some vertigo in the interim and nausea/vomiting. Went to ED. CTshowed mild right hydro. Catheter placed and admitted for management of pain. No fevers. Nausea persists. Pain control improving but not optimized. The patient's past medical, surgical, medication, allergy, family, and social histories were reviewed and are unchanged except as stated above in the HPI above. Histories: The patient's past medical history is notable for: Past Medical History: Diagnosis Date Abdominal pain Anxiety Aortic dissection (HCC) Depression Hypertension Kidney stones Memory loss The patient's past surgical history is notable for: Past Surgical History: Procedure Laterality Date ABDOMINAL AORTIC ANEURYSM REPAIR The patient is currently taking the following medications: Current Facility-Administered Medications Medication Dose Route Frequency Provider Last Rate Last Admin acetaminophen (TYLENOL) tablet 650 mg 650 mg oral Q4H PRN Loyda Hernandez MD 650 mg at 10/02/232106 amitriptyline (ELAVIL) tablet 25 mg 25 mg oral Nightly Loyda Hernandez MD 25 mg at 10/02/232106 amLODIPine (NORVASC) tablet 10 mg 10 mg oral Daily Radha Dixon MD capsaicin (ZOSTRIX) 0.025 % cream 1 Application 1 Application topical BID PRN Radha Dixon MD Carrier Fluids for Secondary Infusion - 0.9% Sodium Chloride 30 mL intravenous PRN Loyda Hernandez MD cefTRIAXone (ROCEPHIN) 2,000 mg/20 mL in sterile water (premix) 2,000 mg 2,000 mg intravenous Q24H Loyda Hernandez MD 2,000 mg at 10/02/23 153 dicyclomine (BENTYL) capsule 20 mg 20 mg oral Q6H PRN Radha Dixon MD enoxaparin (LOVENOX) syringe 40 mg 40 mg subcutaneous Daily-2100 Loyda Hernandez MD 40 mg at 10/02/232107 gabapentin (NEURONTIN) tablet 600 mg 600 mg oral TID Loyda Hernandez MD hydrALAZINE (APRESOLINE) tablet 50 mg 50 mg oral TID Radha Dixon MD 50 mg at 10/02/232106 HYDROcodone-acetaminophen (NORCO) 5-325 mg per tablet 1 tablet 1 tablet oral Q4H PRN Craig Reed MD 1 tablet at 10/03/2341 hydrocortisone (ANUSOL-HC) 2.5 % rectal cream rectal BID PRN Radha Dixon MD HYDROmorphone (DILAUDID) injection 1 mg 1 mg intravenous Q2H PRN Mellisa Woo MD 1 mg at 10/03/23523 hyoscyamine (OSCIMIN) disintegrating tablet 125 mcg 125 mcg oral Q4H PRN Radha Dixon MD labetaloL (NORMODYNE,TRANDATE) tablet 400 mg 400 mg oral BID Radha Dixon MD 400 mg at 10/02/232106 ondansetron ODT (ZOFRAN-ODT) disintegrating tablet 4 mg 4 mg oral Q6H PRN Loyda Hernandez MD 4 mg at 10/03/23436 Or ondansetron (ZOFRAN) injection 4 mg 4 mg intravenous Q6H PRN Loyda Hernandez MD 4 mg at 10/02/232034 oxyBUTYnin (DITROPAN) tablet 5 mg 5 mg oral TID PRN Loyda Hernandez MD polyethylene glycol (MIRALAX) packet 17 g 17 g oral Daily PRN Radha Dixon MD QUEtiapine (SEROquel) tablet 50 mg 50 mg oral Nightly Loyda Hernandez MD 50 mg at 10/02/232106 ramelteon (ROZEREM) tablet 8 mg 8 mg oral Nightly PRN Radha Dixon MD 8 mg at 10/02/232106 senna-docusate (PERICOLACE) 8.6-50 mg per tablet 2 tablet 2 tablet oral BID Radha Dixon MD 2 tablet at 10/02/232106 sodium chloride 0.9% flush 0.5-20 mL 0.5-20 mL intra-catheter Q8H SUSAN Loyda eHrnandez MD sodium chloride 0.9% flush 0.5-20 mL 0.5-20 mL intra-catheter PRN Loyda Hernandez MD sodium chloride 0.9% infusion 100 mL/hr intravenous Continuous Radha Dixon MD 100 mL/hr at 10/03/23437 100 mL/hr at 10/03/23437 tamsulosin (FLOMAX) extended release capsule 0.4 mg 0.4 mg oral Daily Loyda Hernandez MD The patient is allergic to: Allergies Allergen Reactions Lisinopril Angioedema Amoxicillin Hives The patient's past family history is notable for: Family History Problem Relation Age of Onset Depression Mother Anxiety disorder Mother Depression Father Anxiety disorder Sister Depression Sister Depression Brother Anxiety disorder Brother The patient's past social history is notable for: Social History Tobacco Use Smoking status: Never Smokeless tobacco: Never Substance and Sexual Activity Drug use: Not Currently Types: Marijuana Sexual activity: Defer Alcohol Use: Not At Risk (09/27/2023) AUDIT-C Frequency of Alcohol Consumption: Never Average Number of Drinks: Patient does not drink Frequency of Binge Drinking: Never Objective: Physical Exam Gen: male in mild distress secondary to nausea. Neuro: Alert, conversation appropriate Skin: No rashes or lesions of exposed skin Head: normocephalic Ears: Hearing normal Pulm: Respirations non-labored. Abdomen: Soft. Non-tender. Non-distended. No flank pain. Genitourinary: urine clear in emerson MSK: Ambulates without assistance. Moves all 4 extremities. Labs: The following lab results were personally reviewed by me: Lab Results Component Value Date GLUCOSE 93 10/02/2023 CALCIUM 9.2 10/02/2023 SODIUM 138 10/02/2023 POTASSIUM 3.1 (L) 10/02/2023 CO2 25 10/02/2023 CHLORIDE 101 10/02/2023 BUNSER 27 (H) 10/02/2023 CREATININE 1.70 (H) 10/02/2023 Lab Results Component Value Date WBC 7.5 10/02/2023 HGB 10.7 (L) 10/02/2023 HCT 32.2 (L) 10/02/2023 MCV 89.0 10/02/2023 LABPLAT 259 10/02/2023 Lab Results Component Value Date PTH 33 09/06/2023 CALCIUM 9.2 10/02/2023 CAION 4.88 09/06/2023 PHOS 2.6 07/06/2023 No results found for: PSA Radiology: The following images were independently reviewed by me. CT Abdomen Pelvis W Contrast Narrative: EXAMINATION: Computed tomography of the abdomen and pelvis without intravenous contrast HISTORY: Flank pain TECHNIQUE: Transaxial computed tomographic images of the abdomen and pelvis were obtained without intravenous contrast. Of note, 93 mL Optiray 350 venous contrast is documented, but there is no contrast opacification in any of the vessels on this examination, suggesting a technical failure. COMPARISON: 09/27/2023 FINDINGS: Endoluminal stent is noted within the descending thoracic aorta and extends to just above the aortic bifurcation. 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 The dissection flap can be seen terminating in the left common iliac artery. The stomach and duodenum are grossly normal. The noncontrast appearance of the liver is normal. The gallbladder is nondilated. The pancreas, spleen and adrenal glands are normal. There is mild right hydronephrosis and there are multiple punctate stones in the right renal pelvis. Several tiny stones are noted in the right ureter, which is dilated and which is surrounded by inflammatory stranding. No stones are evident on the left. No retroperitoneal or pelvic adenopathy. The colon and small bowel are normal in caliber. There is no ascites. The urinary bladder is mildly distended. No stones are evident within the urinary bladder. No acute or suspicious osseous findings. Impression: Mild right hydroureteronephrosis with multiple punctate stones in the right renal collecting system and several stones in the right ureter. None of the ureteral stones exceeds 2 mm in size. Electronically signed by: Brando Kumar M.D. Pathology: none documented in this encounter ED Notes * Mellisa Woo MD - 10/02/2023 3:59 PM CDT HPI Chief Complaint Patient presents with Post-op Problem Blood in Urine 33yo M with Pmhx sig for prior aortic dissection, pseudoaneurysm, HTN, recent renal stone presenting with pain radiating into his testicle similar to his prior renal stone. Per chart review, patient was evaluated 09/27/2023 for back pain radiating into his testicle. Found to have 4mm renal stone, new ANGI. Patient was evaluated by Dr. Glass, and underwent cystoscopy, stone removal, stent placement on 09/27/2023. Patient was discharged home. Patient had continued discomfort, hematuria so pulled thestent 2 days ago. Notes increasing pain this morning, with severe pain radiating into his testicle similar to when he presented to a stone. Denies fevers, + chills. +nausea, no vomiting. Patient has had hematuria, denies blood clots. Patient History: Patient Active Problem List Diagnosis Date Noted Weight loss 10/03/2023 Pyelonephritis 10/02/2023 Hypokalemia 10/02/2023 ANGI (acute kidney injury) ([facility]) 10/02/2023 Syncope 10/02/2023 Ureteral calculi 09/27/2023 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[facility]) 09/06/2023 Back pain at L4-L5 level 08/23/2023 PFO (patent foramen ovale) 07/05/2023 Ureteral stone 07/04/2023 Abdominal pain 07/04/2023 Other chronic pain 06/24/2023 Pseudoaneurysm following procedure (CMS/HCC) ([facility]) 06/24/2023 Infrarenal abdominal aortic aneurysm, without rupture ([facility]) 06/13/2023 Polysubstance abuse (CMS/HCC) ([facility]) 06/10/2023 Moderate malnutrition (CMS/HCC) ([facility]) 06/09/2023 Dissection of abdominal aorta (CMS/HCC) ([facility]) 06/03/2023 Urinary retention 05/16/2023 Epistaxis 05/13/2023 Pneumonia 05/13/2023 HTN (hypertension) 05/13/2023 Dissection of thoracoabdominal aorta (CMS/HCC) ([facility]) 05/02/2023 Dissection of aorta, unspecified portion of aorta (HCC) 05/01/2023 Past Medical History: Diagnosis Date Abdominal pain Anxiety Aortic dissection (HCC) Depression Hypertension Kidney stones Memory loss Past Surgical History: Procedure Laterality Date ABDOMINAL AORTIC ANEURYSM REPAIR Family History Problem Relation Age of Onset Depression Mother Anxiety disorder Mother Depression Father Anxiety disorder Sister Depression Sister Depression Brother Anxiety disorder Brother Social History Tobacco Use Smoking status: Never Smokeless tobacco: Never Vaping Use Vaping status: Never Used Substance and Sexual Activity Alcohol use: Not Currently Drug use: Not Currently Types: Marijuana Sexual activity: Defer Social History Social History Narrative Not on file Review of Systems Review of Systems Constitutional: Negative for chills and fever. HENT: Negative for ear pain and sore throat. Eyes: Negative for pain and visual disturbance. Respiratory: Negative for cough and shortness of breath. Cardiovascular: Negative for chest pain and palpitations. Gastrointestinal: Positive for abdominal pain. Negative for vomiting. Genitourinary: Positive for flank pain and testicular pain. Negative for dysuria and hematuria. Musculoskeletal: Negative for arthralgias and back pain. Skin: Negative for color change and rash. Neurological: Negative for seizures and syncope. All other systems reviewed and are negative. Physical Exam ED Triage Vitals Temp Pulse Resp BP SpO2 10/02/23 1210 10/02/23 1210 10/02/230 10/02/23 1210 10/02/23 1210 37.2 ??C (99 ??F) 96 18 113/78 94 % Temp src Heart Rate Source Patient Position BP Location FiO2 (%) 10/02/23205310/02/23205310/02/23205310/02/232053 -- Oral Pulse Oximetry HOB 30 degrees Right arm Height Height Method Weight Weight Method 10/02/23120910/02/23205310/02/23 12110/02/23 1210 1.753 m (5' 9 ) Stated 93 kg (205 lb) Stated Physical Exam Vitals and nursing note reviewed. Constitutional: General: He is in acute distress. Appearance: He is well-developed. Comments: Appears uncomfortable, in pain HENT: Head: Normocephalic and atraumatic. Eyes: Conjunctiva/sclera: Conjunctivae normal. Cardiovascular: Rate and Rhythm: Normal rate and regular rhythm. Heart sounds: No murmur heard. Pulmonary: Effort: Pulmonary effort is normal. No respiratory distress. Breath sounds: Normal breath sounds. Abdominal: Palpations: Abdomen is soft. Tenderness: There is abdominal tenderness. Comments: Suprapubic abdominal tenderness without guarding or rebound Musculoskeletal: General: No swelling. Cervical back: Neck supple. Skin: General: Skin is warm and dry. Capillary Refill: Capillary refill takes less than 2 seconds. Neurological: Mental Status: He is alert. Comments: CNII-XII grossly intact, moving all extremities Psychiatric: Mood and Affect: Mood normal. MDM Medical Decision Making High concern for ureter spasm, moderate concern for urinary retention for hematuria, moderate concern for pyelonephritis. Moderate concern for continued stone, low concern for hydronephrosis. PLAN: 1) CBC, CMP, UA 2) CT abd/pelvis 3) pain control 4) anticipate admission given severity of symptoms despite dilaudid Amount and/or Complexity of Data Reviewed Labs: ordered. Radiology: ordered. Risk Prescription drug management. Decision regarding hospitalization. ED Course as of 10/04/23 1541 Time: 10/01 1890 Comment: Spoke with Urology. Noting that as long as there is not a new large obstructive stone or large hydronephrosis, no need for urgent Urology evaluation. OK to admit for antibiotics and pain control. No need for Urology follow-up unless pain not improved tomorrow. By: Mellisa Woo MD Time: 10/01 9304 Comment: UA concerning for UTI. Ceftriaxone ordered. By: Mellisa Woo MD Final diagnoses: Pyelonephritis [N12] Hypokalemia [E87.6] ANGI (acute kidney injury) ([facility]) [N17.9] Syncope, unspecified syncope type [R55] Dissection of aorta, unspecified portion of aorta ([facility]) [I71.00] Primary hypertension [I10] Weight loss [R63.4] ANGI (acute kidney injury) ([facility]) Mellisa Woo MD 10/04/23 1542 * Essie Sosa RN - 10/02/2023 12:09 PM CDT Patient presents post stent removal on 09/29 patient had stent placed Tuesday 09/26. Patient pulled stent early due to increased bleeding and pain. Patient notes hematuria now and inability to urinate. documented in this encounter Miscellaneous Notes * Plan of Care - Naomi Mejia RN - 10/04/2023 11:07 AM CDT Goals: Clinical Goals for the Shift: VSS, manage pain, keep pt free from injury. Problem: Lack of Knowledge Goal: Ability to develop a pain control plan will improve Outcome: Adequate for Discharge Flowsheets (Taken 10/03/20231927) Ability to develop a pain control plan will improve: Explain causes of pain and how long pain can be expected to last Problem: Medication Goal: Satisfaction with pain management medication regimen will improve Outcome: Adequate for Discharge Flowsheets (Taken 10/03/20231927) Satisfaction with pain management medication regimen will improve: Assess satisfaction with pain management regimen Problem: Sensory Goal: Ability to identify factors that increase pain levels will improve while working to decrease the patient's pain levels Outcome: Adequate for Discharge Flowsheets (Taken 10/03/20231927) Ability to identify factors that increase pain levels will improve while working to decrease patients pain levels: Assess pain status Problem: Coping Goal: Ability to cope will improve Outcome: Adequate for Discharge Flowsheets (Taken 10/03/20231927) Ability to cope will Improve: Encourage vebalization of feelings surrounding pain Problem: Health Behavior Goal: Identification of resources available to assist in meeting health care needs will improve Outcome: Adequate for Discharge Flowsheets (Taken 10/03/20231927) Identification of resources available to assist in meeting health care needs will improve: Collaborate with pain management Problem: Discharge Planning Goal: Understanding discharge needs will improve Outcome: Adequate for Discharge Flowsheets (Taken 10/03/20231927) Understanding of discharge needs will improve: Discuss information regarding discharge instructions Summary: Pt had a cystoscopy with stent placement to his right ureter. Pt returned to the floor alert and oriented x 4. Pt had emerson removed per Urology order. Pt denies having any pain. He remains free from injury. No signs of distress noted. Pt will discharge to home today. * Plan of Care - Shannon Busch RN - 10/04/2023 10:22 AM CDT 10/04/23 1022 Discharge Summary Discharge Disposition Private residence Equipment/Provider Needs No Home Needs Identified Discharge Additional Assistance Does the patient need discharge transport arranged? No Pt has discharge orders. No needs. Family will transfer home. Dispo- Home * Perioperative Nursing Note - Taryn Izquierdo RN - 10/04/2023 9:00 AM CDT Pt called his mom on portable phone, updated. Pt irritable, wants to go home. Dr landa called, states hospitalist can discharge pt. Pt is upset because he had a family function planned with out of town in laws and now he is in the hospital * Op Note - Otoniel Landa MD - 10/04/2023 7:30 AM CDT Operative Report SURGEON: Otoniel Landa MD SURGICAL TEAM: Surgeons and Role: * Otoniel Landa MD - Primary DATE OF SURGERY : 10/04/2023 PREOPERATIVE DIAGNOSIS: Right ureteral obstruction Right renal colic POSTOPERATIVE DIAGNOSIS: Right ureteral obstruction Right renal colic PROCEDURE: CYSTOSCOPY RETROGRADE PYELOGRAM - INSERTION URETERAL STENT (R) INDICATION FOR PROCEDURE: Right renal colic ANESTHESIA: General IMPLANTS: Implant Name Type Inv. Item Serial No. Solar 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 Lot No. LRB No. Used Action RentersQ Contour 6fr 26cm Large Inner Lumen Low Profile Bladder Ag Taper Latex [id number] - [id number] [employer] Contour 6fr 26cm Large Inner Lumen Low Profile BladderMark Taper Latex Free 180-223 [employer] Ben [id number] Right 1 Implanted OPERATIVE DETAILS Incision type: none Estimated Blood Loss: 0 mL Urine output : Unable to determine Intraoperative Fluids: See Anesthesia report Blood/Blood Products Transfused: 0 mls Specimens: No specimens collected during this procedure. PROCEDURE: Consent was obtained. Anesthesia was induced smoothly. Preoperative antibiotics (ancef) were administered without adverse reaction. The patient was prepped in the dorsal lithotomy position using standard technique. A time-out was performed. A 22 [place] cystoscope was introduced per urethra without difficulty. We systematically inspected the bladder URETHRA: normal without lesions. PROSTATE: normal Bladder Neck: No abnormalities Trigone: No lesions/abnormalities Right ureteral orifice: In expected anatomic position, effluxing urine Left ureteral orifice: In expected anatomic position, effluxing urine Right lateral wall: No lesions/abnormalities Left lateral wall: No lesions/abnormalities Posterior wall: No lesions/abnormalities Dome: No lesions/abnormalities Anterior wall: No lesions/abnormalities DETRUSOR: normal capacity, without flaccidity, without excessive compliance, mild trabeculation or diverticula, without uninhibited bladder contractions on fillings. We cannulated the right ureteral orifice with a Sensor guidewire. We advanced the guidewire into renal pelvis and advanced a 6x26 double-J ureteral stent without resistance. There was slightly cloudyurine draining. We confirmed good position of the proximal curl fluoroscopically. We visualized thedistal curl in the bladder. The patient's bladder was then drained with a 16Fr catheter.. There subsequently awoken from anesthesia, transferred to the hospital stretcher, and discharged in stable condition. Complications: None Disposition Plan: -pacu, then floor -f/u with myself or Glass for stent removal Condition on completion of case: stable Otoniel Landa MD Date: 10/04/2023 Time: 7:42 AM TEACHING ATTESTATION : I was present and directly participated in the entire procedure (including opening and closing). * Plan of Care - Migel Oliveira - 10/03/2023 7:49 PM CDT Problem: Lack of Knowledge Goal: Ability to develop a pain control plan will improve Outcome: Not Progressing Problem: Medication Goal: Satisfaction with pain management medication regimen will improve Outcome: Not Progressing Problem: Coping Goal: Ability to cope will improve Outcome: Progressing Problem: Health Behavior Goal: Identification of resources available to assist in meeting health care needs will improve Outcome: Progressing Goals: Clinical Goals for the Shift: VSS, pain management, rest, safety Summary: Pt AOx4 with uncontrolled fever of 102.8 since 1700 yesterday. Gave ibuprofen and one timedose of rectal tylenol to aid with temperature. Pt received 500cc NS bolus and is now on cont IVF NS at 125. Blood cultures drawn. Will cont to monitor * Plan of Care - Naomi Mejia RN - 10/03/2023 7:29 PM CDT Goals: Clinical Goals for the Shift: VSS, manage pain, assess pt for nausea and vomiting. Keep pt free from injury. Problem: Lack of Knowledge Goal: Ability to develop a pain control plan will improve Outcome: Not Progressing Flowsheets (Taken 10/03/20231927) Ability to develop a pain control plan will improve: Explain causes of pain and how long pain can be expected to last Problem: Medication Goal: Satisfaction with pain management medication regimen will improve Outcome: Not Progressing Flowsheets (Taken 10/03/20231927) Satisfaction with pain management medication regimen will improve: Assess satisfaction with pain management regimen Problem: Sensory Goal: Ability to identify factors that increase pain levels will improve while working to decrease the patient's pain levels Outcome: Not Progressing Flowsheets (Taken 10/03/20231927) Ability to identify factors that increase pain levels will improve while working to decrease patients pain levels: Assess pain status Problem: Coping Goal: Ability to cope will improve Outcome: Not Progressing Flowsheets (Taken 10/03/20231927) Ability to cope will Improve: Encourage vebalization of feelings surrounding pain Problem: Health Behavior Goal: Identification of resources available to assist in meeting health care needs will improve Outcome: Not Progressing Flowsheets (Taken 10/03/20231927) Identification of resources available to assist in meeting health care needs will improve: Collaborate with pain management Problem: Discharge Planning Goal: Understanding discharge needs will improve Outcome: Not Progressing Flowsheets (Taken 10/03/20231927) Understanding of discharge needs will improve: Discuss information regarding discharge instructions Summary: Pt was febrile today. First temp was 101.3, and second temp was 102.8. Administered tylenol both times. Notified Hospitalist. No new orders. Pt was nauseated and vomiting this morning and was not due for Zofran this morning. Notified Hospitalist. Hospitalist ordered compazine 5 mg IV prn. Administered compazine. Pt requested dilaudid at that time. I explained to him that the reason why he was vomiting was from dilaudid. He requested water. I explained to him that if he was nauseated that he should not drink anything. He had normal saline going at 100 cc/hr but was discontinued. I told pt that if he did not vomit 30 minutes after taking compazine that he should try Katy. He said ok. Five minutes later he called for pain medication again. Once again I explained to him that he has to wait for 30 minutes. After 30 minutes pt did not have any vomiting. Administered norco and all his scheduled medication. Pt tolerated medications. Pt continued to ask for dilaudid. Administered dilaudid x 3. His potassium was 3.3. Administered potassium 20 meq in 250 cc x 2. He is scheduled to get another dose of potassium 20 meq in 250 cc. Emerson to gravity draining tessa/ pink tinged urine. Urology is going to watch pt for 12 hours. Pt started on a regular diet. He tolerated regular diet well. Pt remains free from injury. No signs of distress noted. * Subjective & Objective - Doron Boudreaux MD - 10/03/2023 1:38 PM CDT Daily Progress Note Division of Hospital Medicine Name: Eriberto Chau Today: October 03, 2023 : 1990 Age: 33 y.o. male Admit: 10/02/2023 Bed: BFD400/[address] Subjective Chief complaint: pyelo Interval History: ongoing pain, int n/v Objective Medications: Scheduled: amitriptyline, 25 mg, oral, Nightly amLODIPine, 10 mg, oral, Daily cefTRIAXone, 2,000 mg, intravenous, Q24H enoxaparin, 40 mg, subcutaneous, Daily-2100 gabapentin, 600 mg, oral, TID hydrALAZINE, 50 mg, oral, TID labetaloL, 400 mg, oral, BID QUEtiapine, 50 mg, oral, Nightly senna-docusate, 2 tablet, oral, BID sodium chloride 0.9%, 0.5-20 mL, intra-catheter, Q8H SUSAN tamsulosin, 0.4 mg, oral, Daily Infusions: PRN: acetaminophen capsaicin sodium chloride 0.9% dicyclomine HYDROcodone-acetaminophen hydrocortisone HYDROmorphone hyoscyamine ondansetron ODT OR ondansetron oxyBUTYnin polyethylene glycol prochlorperazine ramelteon sodium chloride 0.9% Vitals: 24hr Min/Max: Temp Min: 36.9 ??C (98.4 ??F) Max: 37.4 ??C (99.3 ??F) Pulse Min: 86 Max: 110 BP Min: 94/70 Max: 160/76 Resp Min: 14 Max: 24 SpO2 Min: 91 % Max: 100 % Most Recent: Vitals: 10/03/23 1018 BP: 136/69 Pulse: 91 Resp: Temp: SpO2: Intake/Output Summary (Last 24 hours) at 10/03/2023 1339 Last data filed at 10/03/2023 1125 Gross per 24 hour Intake -- Output 2300 ml Net -2300 ml Exam R cva ttp Tachy diaphoretic Lab/Diagnostic Review: Recent Results (from the past 36 hour(s)) CBC with auto differential Collection Time: 10/02/23 1:37 PM Result Value Ref Range WBC 7.5 3.8 - 9.9 K/cumm Hgb 10.7 (L) 13.0 - 17.5 g/dL Hct 32.2 (L) 38.9 - 50.3 % Plt 259 150 - 400 K/cumm MPV 9.4 9.1 - 12.3 fL RBC 3.62 (L) 4.30 - 5.80 M/cumm MCV 89.0 81.3 - 96.4 fL MCH 29.6 27.1 - 33.3 pg MCHC 33.2 32.3 - 35.7 g/dL RDW CV 14.8 11.1 - 14.9 % RDW SD 48.2 (H) 35.7 - 48.1 fL NRBC abs 0.00 0.00 - 0.01 K/cumm Comprehensive metabolic panel Collection Time: 10/02/23 1:37 PM Result Value Ref Range Sodium 138 135 - 145 mmol/L Potassium, pl 3.1 (L) 3.3 - 4.9 mmol/L Chloride 101 97 - 110 mmol/L CO2 25 22 - 32 mmol/L Anion gap 12 2 - 15 mmol/L BUN 27 (H) 6 - 25 mg/dL Creatinine 1.70 (H) 0.80 - 1.30 mg/dL Glucose 93 70 - 199 mg/dL Calcium 9.2 8.5 - 10.3 mg/dL Bilirubin, total 0.4 0.1 - 1.2 mg/dL Protein, pl 8.0 6.5 - 8.5 g/dL Albumin 4.3 3.5 - 5.0 g/dL Alk phos 90 40 - 130 Units/L ALT 8 7 - 55 Units/L AST 10 10 - 50 Units/L Lipase Collection Time: 10/02/23 1:37 PM Result Value Ref Range Lipase 10 10 - 99 Units/L Differential, auto Collection Time: 10/02/23 1:37 PM Result Value Ref Range Neutrophil abs 6.0 1.5 - 6.5 K/cumm Imm gran abs 0.0 0.0 - 0.1 K/cumm Lymphocyte abs 0.5 (L) 0.8 - 3.3 K/cumm Monocyte abs 0.9 (H) 0.2 - 0.8 K/cumm Eosinophil abs 0.1 0.0 - 0.5 K/cumm Basophil abs 0.0 0.0 - 0.1 K/cumm Neutrophil pct 79.8 % Imm gran pct 0.5 % Lymphocyte pct 7.1 % Monocyte pct 11.5 % Eosinophil pct 0.8 % Basophil pct 0.3 % eGFR Collection Time: 10/02/23 1:37 PM Result Value Ref Range eGFR 55 (L) >=60 mL/min/1.73 m2 Urinalysis reflex to microscopic and culture Urine, bladder Collection Time: 10/02/23 1:56 PM Specimen: Urine, bladder Result Value Ref Range Color, ur Tessa Yellow Clarity, ur Turbid (A) Clear Specific gravity, ur 1.023 1.003 - 1.030 pH, urine 6.0 Protein, ur ql 2+ (A) Negative Glucose, ur ql Negative Negative Ketones, ur Negative Negative Bilirubin, ur Negative Negative Blood, ur 3+ (A) Negative Urobilinogen, ur <2.0 <2.0 mg/dL Nitrite, ur Negative Negative Leukocyte esterase, ur 4+ (A) Negative UA reflex comment Reflex to microscopic UA will be performed. Urinalysis, microscopic only Collection Time: 10/02/23 1:56 PM Result Value Ref Range WBC, ur >50 (A) 0 - 5 /HPF RBC, ur >50 (A) 0 - 2 /HPF Epithelial cells, squamous, ur 1-5 0 - 5 /HPF Bacteria, ur 3+ (A) Mucous, ur Present (A) Culture Reflex Comment Reflex to urine culture will be performed. Urine culture Urine, bladder Collection Time: 10/02/23 1:56 PM Specimen: Urine, bladder Result Value Ref Range Report Preliminary Report: Specimen received and processed Urinalysis reflex to microscopic and culture Urine, clean voided Collection Time: 10/03/23 1:00 AM Specimen: Urine, clean voided Result Value Ref Range Color, ur Tessa Yellow Clarity, ur Turbid (A) Clear Specific gravity, ur 1.035 (H) 1.003 - 1.030 pH, urine 6.0 Protein, ur ql 1+ (A) Negative Glucose, ur ql Negative Negative Ketones, ur Negative Negative Bilirubin, ur Negative Negative Blood, ur 3+ (A) Negative Urobilinogen, ur <2.0 <2.0 mg/dL Nitrite, ur Negative Negative Leukocyte esterase, ur 3+ (A) Negative UA reflex comment Reflex to microscopic UA will be performed. Urinalysis, microscopic only Collection Time: 10/03/23 1:00 AM Result Value Ref Range WBC, ur >50 (A) 0 - 5 /HPF RBC, ur >50 (A) 0 - 2 /HPF Culture Reflex Comment Reflex to urine culture will be performed. Urine culture Urine, clean voided Collection Time: 10/03/23 1:00 AM Specimen: Urine, clean voided Result Value Ref Range Report Preliminary Report: Specimen received and processed Basic metabolic panel Collection Time: 10/03/23 8:01 AM Result Value Ref Range Sodium 134 (L) 135 - 145 mmol/L Potassium, pl 3.3 3.3 - 4.9 mmol/L Chloride 100 97 - 110 mmol/L CO2 22 22 - 32 mmol/L Anion gap 12 2 - 15 mmol/L BUN 15 6 - 25 mg/dL Creatinine 1.15 0.80 - 1.30 mg/dL Glucose 95 70 - 199 mg/dL Calcium 8.4 (L) 8.5 - 10.3 mg/dL CBC with auto differential Collection Time: 10/03/23 8:01 AM Result Value Ref Range WBC 6.3 3.8 - 9.9 K/cumm Hgb 10.0 (L) 13.0 - 17.5 g/dL Hct 31.1 (L) 38.9 - 50.3 % Plt 230 150 - 400 K/cumm MPV 9.3 9.1 - 12.3 fL RBC 3.35 (L) 4.30 - 5.80 M/cumm MCV 92.8 81.3 - 96.4 fL MCH 29.9 27.1 - 33.3 pg MCHC 32.2 (L) 32.3 - 35.7 g/dL RDW CV 15.0 (H) 11.1 - 14.9 % RDW SD 50.0 (H) 35.7 - 48.1 fL NRBC abs 0.00 0.00 - 0.01 K/cumm Magnesium Collection Time: 10/03/23 8:01 AM Result Value Ref Range Magnesium 1.9 1.4 - 2.5 mg/dL Differential, auto Collection Time: 10/03/23 8:01 AM Result Value Ref Range Neutrophil abs 4.7 1.5 - 6.5 K/cumm Imm gran abs 0.1 0.0 - 0.1 K/cumm Lymphocyte abs 0.6 (L) 0.8 - 3.3 K/cumm Monocyte abs 1.0 (H) 0.2 - 0.8 K/cumm Eosinophil abs 0.0 0.0 - 0.5 K/cumm Basophil abs 0.0 0.0 - 0.1 K/cumm Neutrophil pct 74.0 % Imm gran pct 0.8 % Lymphocyte pct 9.7 % Monocyte pct 15.2 % Eosinophil pct 0.0 % Basophil pct 0.3 % eGFR Collection Time: 10/03/23 8:01 AM Result Value Ref Range eGFR 87 >=60 mL/min/1.73 m2 I have reviewed the laboratory results. Imaging Results: CT Abdomen Pelvis W Contrast Narrative: EXAMINATION: Computed tomography of the abdomen and pelvis without intravenous contrast HISTORY: Flank pain TECHNIQUE: Transaxial computed tomographic images of the abdomen and pelvis were obtained without intravenous contrast. Of note, 93 mL Optiray 350 venous contrast is documented, but there is no contrast opacification in any of the vessels on this examination, suggesting a technical failure. COMPARISON: 09/27/2023 FINDINGS: Endoluminal stent is noted within the descending thoracic aorta and extends to just above the aortic bifurcation. 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 The dissection flap can be seen terminating in the left common iliac artery. The stomach and duodenum are grossly normal. The noncontrast appearance of the liver is normal. The gallbladder is nondilated. The pancreas, spleen and adrenal glands are normal. There is mild right hydronephrosis and there are multiple punctate stones in the right renal pelvis. Several tiny stones are noted in the right ureter, which is dilated and which is surrounded by inflammatory stranding. No stones are evident on the left. No retroperitoneal or pelvic adenopathy. The colon and small bowel are normal in caliber. There is no ascites. The urinary bladder is mildly distended. No stones are evident within the urinary bladder. No acute or suspicious osseous findings. Impression: Mild right hydroureteronephrosis with multiple punctate stones in the right renal collecting system and several stones in the right ureter. None of the ureteral stones exceeds 2 mm in size. Electronically signed by: Brando Kumar M.D. I have independently reviewed and interpreted . Doron Boudreaux MD 10/03/2023 * Assessment & Plan Note - Radha Dixon MD - 10/03/2023 12:09 AM CDT Associated Problem(s): Weight loss Consult nutrition * Assessment & Plan Note - Radha Dixon MD - 10/03/2023 12:09 AM CDT Associated Problem(s): HTN (hypertension) Continue home labetalol, hydralazine, amlodipine * Assessment & Plan Note - Doron Boudreaux MD - 10/03/2023 12:09 AM CDT Associated Problem(s): Dissection of aorta, unspecified portion of aorta (HCC) Follows with Dr Abarca Cont antihypertensives * Assessment & Plan Note - Radha Dixon MD - 10/03/2023 12:08 AM CDT Associated Problem(s): Syncope Seems most likely to be hypovolemia related, however has complicated history with aortic dissection. -- Follow on tele -- Obtain ECHO * Assessment & Plan Note - Doron Boudreaux MD - 10/03/2023 12:08 AM CDT Associated Problem(s): ANGI (acute kidney injury) (HCC) Scr improving Cont ivf Rpt bmp in am Labs rev Lab Results Component Value Date GLUCOSE 95 10/03/2023 CALCIUM 8.4 (L) 10/03/2023 SODIUM 134 (L) 10/03/2023 POTASSIUM 3.3 10/03/2023 CO2 22 10/03/2023 CHLORIDE 100 10/03/2023 BUNSER 15 10/03/2023 CREATININE 1.15 10/03/2023 * Plan of Care - Migel Oliveira - 10/03/2023 12:07 AM CDT Problem: Lack of Knowledge Goal: Ability to develop a pain control plan will improve Outcome: Not Progressing Problem: Medication Goal: Satisfaction with pain management medication regimen will improve Outcome: Not Progressing Goals: Summary: Received Pt from ED. VSS, c/o lower back pain. Dilaudid, Tylenol, and Katy being utilizedfor pain. Pt placed on telemetry box #19. NPO since midnight. TTE ordered. Will cont to monitor * Assessment & Plan Note - Doron Boudreaux MD - 10/03/2023 12:07 AM CDT Associated Problem(s): Hypokalemia Rpt kcl 60 meq IV Lab Results Component Value Date GLUCOSE 95 10/03/2023 CALCIUM 8.4 (L) 10/03/2023 SODIUM 134 (L) 10/03/2023 POTASSIUM 3.3 10/03/2023 CO2 22 10/03/2023 CHLORIDE 100 10/03/2023 BUNSER 15 10/03/2023 CREATININE 1.15 10/03/2023 * Assessment & Plan Note - Doron Boudreaux MD - 10/03/2023 12:06 AM CDT Associated Problem(s): Pyelonephritis Cont ctx F/u cultures Cont ivf Cont flomax Uro consulted, will give diet based on f/u uro recs this afternoon * Initial Assessments - Samantha Maldonado, RN - 10/02/2023 8:37 PM CDT CM Initial Assessment Interview Note Information Obtained From: Patient (10/02/232031) Admission Source: Admit IP from the ED. Pt from home. Impression: Pyelonephritis Plan Includes: Admit IP, Labs, Medications, Imaging, Consults Primary Source of Transportation: Does the patient need discharge transport arranged?: No (Family will transport) (10/02/232031) Health Insurance Coverage: Yes A[employer] Medicaid, [employer] Better [employer] Prescription Coverage: Yes Pharmacy: [facility]/pharmacy #[id number] [place] [id number] [facility] [address] [facility] [id number] Primary Care Provider: Carl Strickland MD Prior to Admission: Functional Status: Independent with ADLs Primary Caregiver: Self Support System: Spouse/Significant Other, Parent Home Care Services: No Outpatient Services: No Durable Medical Equipment: Walker (wheeled) Living Arrangements: Spouse/significant other Type of Residence: Private residence Steps in home?: Yes, Outside of home Number of steps outside: 3 steps Medication management: Independent (10/02/232031) SDOH: Transportation: In the past 12 months, has lack of transportation kept you from medical appointments or from getting medications?: Patient declined In the past 12 months, has lack of transportation kept you from meetings, work, or from getting things needed for daily living?: Patient declined (10/02/232039) Financial Resource: How hard is it for you to pay for the very basics like food, housing, medical care, and heating?: Somewhat hard (10/02/232038) Housing: In the last 12 months, was there a time when you were not able to pay the mortgage or rent on time?: Patient declined In the last 12 months, was there a time when you did not have a steady place to sleep or slept in ashelter (including now)?: Patient declined (10/02/232039) Utilities: Patient declined, (10/02/232039) Social Connections: In a typical week, how many times do you talk on the phone with family, friends, or neighbors?: Patient declined How often do you get together with friends or relatives?: Patient declined How often do you attend yarsanism or yazdanism services?: Patient declined Do you belong to any clubs or organizations such as yarsanism groups, unions, fraternal or athletic groups, or school groups?: Patient declined How often do you attend meetings of the clubs or organizations you belong to?: Patient declined Are you , , , , never , or living with a partner?: Patient declined (10/02/232040) Food Insecurity: Within the past 12 months, you worried that your food would run out before you got the money to buymore.: Patient declined Within the past 12 months, the food you bought just didn't last and you didn't have money to get more.: Patient declined (10/02/232039) Alcohol Use: PHQ Screening Potential discharge needs include: Home Health: IV therapy (Patient has [place] [facility]) (10/02/232031) Dialysis: NO Behavioral Health Services: Behavioral Health Services: No (10/02/232031) Patient expects to be Discharged to: Private residence, (10/02/232031) Additional Information: The patient lives in a house with his SO/Spouse. There are 3 steps going into the house. Patient non compliant with questions. Patient's Identified Problem/Goal Problem: Ensure acute medical needs are met and that patient has a safe discharge plan. Goal: Secure a discharge plan that patient/family are agreeable with and ensure patient has continuum of care. Case management will follow for discharge planning and send referrals as needed. Goals include: To assure continuity of care, To maximize coping skills, To assure patient is in a safe environment and To assure access to community resources. Plan includes: 1. Collaboration with patient, MD, direct care nurse, Behavioral Geneticist, and other members of the health care team to assure needed interventions completed. 2. Return patient to optimal level of self-care post discharge. 3. Bolt Threader will follow for Discharge Planning - interventions as needed 4. Anticipated level of care at discharge 5. Planned Discharge Disposition Samantha Maldonado RN documented in this encounter Plan of Treatment Scheduled Orders Name Type Priority Associated Diagnoses Orde r Schedule Basic metabolic panel Lab Routine ANGI (acute kidney injury) (HCC) Expected: 10/06/2023, Expires: 10/03/2024 documented as of this encounter Goals Goal Patient Goal Type Associated Problems Recent Progress Patient-Stated? Author CCM Chronic Pain Care Plan Chronic Care Management No change(05/16 2:51 PM DRESSMAKER OR TAILOR) No Rita Landa, BRIA Note: Problem: Chronic Pain Goals: 1. Minimize further functional decline 2. Maximize quality of life 3. Control pain Strategies: - Activity/exercise program recommendation - Conservative stepwise pain medicine strategy with multi-disciplinary approach - Recommend healthy lifestyle strategies and compensatory methods as needed documented as of this encounter Procedures Procedure Name Priority Date/Time Associated Diagnosis Comments FL FLUOROSCOPY < 1 HOUR IP Routine 10/04/2023 7:44 AM CDT CYSTOSCOPY RETROGRADE PYELOGRAM - INSERTION URETERAL STENT 10/04/2023 7:18 AM CDT Flank Pain EGFR Routine 10/04/2023 5:40 AM CDT DIFFERENTIAL AUTO Routine 10/04/2023 5:4 0 AM CDT CBC WITH AUTO DIFFERENTIAL Routine 10/04/2023 5:40 AM CDT MAGNESIUM Routine 10/04/2023 5:40 AM CDT BASIC METABOLIC PANEL Routine 10/04/2023 5:40 AM CDT BLOOD CULTURE Routine 10/04/2023 1:58 AM CDT BLOOD CULTURE STAT 10/04/2023 1:25 AM CDT TRANSTHORACIC ECHO (TTE) COMPLETE W DOPPLER/CF W CONTRAST Routine 10/03/2023 4:05 PM CDT EGFR Routine 10/03/2023 8:01 AM CDT DIFFERENTIAL AUTO Routine 10/03/2023 8:0 1 AM CDT CBC WITH AUTO DIFFERENTIAL Routine 10/03/2023 8:01 AM CDT MAGNESIUM Routine 10/03/2023 8:01 AM CDT BASIC METABOLIC PANEL Routine 10/03/2023 8:01 AM CDT URINALYSIS AND REFLEX TO MICROSCOPIC AND CULTURE Routine 10/03/2023 1:00 AM CDT URINALYSIS, MICROSCOPIC ONLY Routine 10/03/2023 1:00 AM CDT URINE CULTURE Routine 10/03/2023 1:[address] ABDOMEN PELVIS W CONTRAST ED 10/02/2023 4:44 PM CDT URINALYSIS AND REFLEX TO MICROSCOPIC AND CULTURE STAT 10/02/2023 1:56 PM CDT URINALYSIS, MICROSCOPIC ONLY STAT 10/02/2023 1:56 PM CDT URINE CULTURE STAT 10/02/2023 1:56 PM CDT EGFR STAT 10/02/2023 1:37 PM CDT DIFFERENTIAL AUTO STAT 10/02/2023 1:3 7 PM CDT CBC WITH AUTO DIFFERENTIAL STAT 10/02/2023 1:37 PM CDT LIPASE STAT 10/02/2023 1:37 PM CDT COMPREHENSIVE METABOLIC PANEL STAT 10/02/2023 1:37 PM CDT documented in this encounter Results * FL Fluoroscopy < 1 Hour (10/04/2023 7:44 AM CDT) Narrative ABRAN - 10/04/2023 7:44 AM CDT The images from this study are not interpreted by Radiology. ??Please refer to the physician's procedure / OR operative note. Otoniel Landa MD IMG FLUOROSCOPY MAGED PRINCE Final Result [facility] * eGFR (10/04/2023 5:40 AM CDT) eGFR 61 >=60 mL/min/1. 73 m2 Comment: Interpretive Data [...] of Race in Diagnosing Kidney Disease, JASN 2021). The CKD-EPI equation should not be used for patients with unstable renal function and has not been validated in children and those over 70. Current interpretive data was last reviewed 2021. Blood 10/04/2023 5:40 AM CDT 10/04/2023 6:45 AM CDT us Doron Boudreaux MD LAB BLOOD ORDERABLES Fi nal Result [facility] [address] [place] [address] * Differential, auto (10/04/2023 5:40 AM CDT) Neutrophil abs 3.8 1.5 - 6.5 K/cumm Imm gran abs 0.1 0.0 - 0.1 K/cumm [facility] Lymphocyte abs 1.2 0.8 - 3.3 K/cumm [facility] Monocyte abs 0.7 0.2 - 0.8 K/cumm [facility] Eosinophil abs 0.0 0.0 - 0.5 K/cumm [facility] Basophil abs 0.0 0.0 - 0.1 K/cumm [facility] Neutrophil pct 66.5 % [facility] Comment: Interpretive Data Percent cell count reference ranges are not reported, since discordance with absolute values may lead to misinterpretation of CBC data. Current Interpretive Data was last revised on 2017. Imm gran pct 0.9 % [facility] Comment: Interpretive Data Percent cell count reference ranges are not reported, since discordance with absolute values may lead to misinterpretation of CBC data. Current Interpretive Data was last revised on 2017. Lymphocyte pct 20.1 % [facility] Comment: Interpretive Data Percent cell count reference ranges are not reported, since discordance with absolute values may lead to misinterpretation of CBC data. Current Interpretive Data was last revised on 2017. Monocyte pct 11.9 % [facility] Comment: Interpretive Data Percent cell count reference ranges are not reported, since discordance with absolute values may lead to misinterpretation of CBC data. Current Interpretive Data was last revised on 2017. Eosinophil pct 0.3 % [facility] Comment: Interpretive Data Percent cell count reference ranges are not reported, since discordance with absolute values may lead to misinterpretation of CBC data. Current Interpretive Data was last revised on 2017. Basophil pct 0.3 % [facility] Comment: Interpretive Data Percent cell count reference ranges are not reported, since discordance with absolute values may lead to misinterpretation of CBC data. Current Interpretive Data was last revised on 2017. Blood 10/04/2023 5:40 AM CDT 10/04/2023 6:45 AM CDT Doron Boudreaux MD LAB BLOOD ORDERABLES Fi nal Result Performing Organization Address [facility] Co de Phone Number [facility] [address] [place] [address] * Magnesium (10/04/2023 5:40 AM CDT) Pathologist [facility] Magnesium 2.1 1.4 - 2.5 mg/dL Blood 10/04/2023 5:40 AM CDT 10/04/2023 6:45 AM CDT Doron Boudreaux MD LAB BLOOD ORDERABLES Fi nal Result Performing Organization Address [facility] de Phone Number [facility] [address] [facility] [place] [address] * (ABNORMAL) Basic metabolic panel (10/04/2023 5:40 AM CDT) Pathologist [facility] Sodium 140 135 - 145 mmol/L Potassium, pl 3.6 3.3 - 4.9 mmol/L [facility] Chloride 104 97 - 110 mmol/L [facility] CO2 22 22 - 32 mmol/L [facility] Anion gap 14 2 - 15 mmol/L [facility] BUN 11 6 - 25 mg/dL [facility] Creatinine 1.56(H) 0.80 - 1.30 mg/dL [facility] Glucose 96 70 - 199 mg/dL [facility] Comment: Interpretive Data Fasting glucose >/= 126 [...] 2022. Calcium 8.6 8.5 - 10.3 mg/dL [facility] Blood 10/04/2023 5:40 AM CDT 10/04/2023 6:45 AM CDT Doron Boudreaux MD LAB BLOOD ORDERABLES Fi nal Result Performing Organization Address City/[facility]/ZIP Co de Phone Number [facility] [address] [place] [address] * (ABNORMAL) CBC with auto differential (10/04/2023 5:40 AM CDT) WBC 5.7 3.8 - 9.9 K/cumm Hgb 10.4(L) 13.0 - 17.5 g/dL [facility] Hct 32.9(L) 38.9 - 50.3 % [facility] Plt 236 150 - 400 K/cumm [facility] MPV 9.6 9.1 - 12.3 fL [facility] RBC 3.55(L) 4.30 - 5.80 M/cumm [facility] MCV 92.7 81.3 - 96.4 fL [facility] MCH 29.3 27.1 - 33.3 pg [facility] MCHC 31.6(L) 32.3 - 35.7 g/dL [facility] RDW CV 14.8 11.1 - 14.9 % [facility] RDW SD 50.7(H) 35.7 - 48.1 fL [facility] NRBC abs 0.00 0.00 - 0.01 K/cumm [facility] Blood 10/04/2023 5:40 AM CDT 10/04/2023 6:45 AM CDT Doron Boudreaux MD LAB BLOOD ORDERABLES Fi nal Result Performing Organization Address City/[facility]/ZIP Co de Phone Number [facility] [address] [facility] [place] [address] * Blood culture Blood (10/04/2023 1:58 AM CDT) Report Final Report: No growth Blood 10/04/2023 1:58 AM CDT 10/04/2023 2:11 AM CDT Narrative [facility] - 10/09/2023 7:01 AM CDT From a different site than #1. Collection->Peripheral Interpretive Data 1. Blood cultures are incubated and monitored continuously for 5 days (120 hours). The first negative report is issued within 24 hours of receipt in the laboratory. 2. All positive cultures are resulted and called to physicians/care providers as soon as they are detected. 3. A rapid molecular test for organism identification may be performed using the [employer] Blood Culture Identification panel. This assay detects microbial DNA in a blood culture broth. This assay has been cleared by the [place] Food and Drug Administration and its performance characteristics have been verified by the [facility]. Interpretive data was last revised on July 01, 2022. Kim Patel MD LAB MICROBIOLOGY - GENERAL ORDERABLES Final Result [facility] [address] [facility] [place] [address] * Blood culture Blood (10/04/2023 1:25 AM CDT) Report Final Report: No growth Blood 10/04/2023 1:25 AM CDT 10/04/2023 1:51 AM CDT Narrative [facility] - 10/09/2023 7:01 AM CDT Collection->Peripheral Interpretive Data 1. Blood cultures are incubated and monitored continuously for 5 days (120 hours). The first negative report is issued within 24 hours of receipt in the laboratory. 2. All positive cultures are resulted and called to physicians/care providers as soon as they are detected. 3. A rapid molecular test for organism identification may be performed using the [employer] Blood Culture Identification panel. This assay detects microbial DNA in a blood culture broth. This assay has been cleared by the [place] Food and Drug Administration and its performance characteristics have been verified by the [facility]. Interpretive data was last revised on July 01, 2022. us Kim Patel MD LAB MICROBIOLOGY - GENERAL ORDERABLES Final Result [facility] [address] Department [place] [address] * TRANSTHORACIC ECHO (TTE) COMPLETE W DOPPLER/CF W CONTRAST (10/03/2023 4:05 PM CDT) Anatomical Region Laterality Modality Ultrasound 10/03/2023 2:55 PM CDT Narrative 10/03/2023 4:[address] [facility] [place] [address] ECHOCARDIOGRAM Patient Name: ERIBERTO CHAU I : 1990 Study Date: 10/03/2023 2:55:30 PM Gender: M Tech: Location: [id number] Ref Provider: RADHA DIXON ?Height(Cm): 175 BSA: 2.14 Weight(Kg): 94.3 BP: 136/69 ?Order Provider: RADHA DIXON - PROCEDURES: Echocardiographic Report: Transthoracic Echocardiogram with 2D, M-Mode, Spectral and Color Flow Doppler examination and administration of intravenous contrast. INDICATIONS: Syncope. Measurements: 2D/M Mode ? Doppler Measurement ?Value ?Normal Range ?Measurement ? Value ?Normal Range IVSd 2D ?1.04 ? [ 0.60 - 1.00 ] cm ?AV Peak Shaun ? 1.7 ?[ 1.0 - 1.7 ] m/s LVIDd 2D ? 5.78 ? [ 4.20 - 5.80 ] cm ?AV Peak PG ?12 ? mmHg LVIDs 2D ? 4.28 ? [ 2.50 - 4.00 ] cm ?AV Mean PG ?6 ?mmHg LVPWd 2D ? 0.98 ? [ 0.60 - 1.00 ] cm ?AV VTI ?27.1 ? cm LA Dimension 2D ?3.32 ? [ 3.00 - 4.00 ] cm ?SUZANNE V max ? 3.2 ?cm2 AoR Diam 2D ?3.42 ? [ 3.10 - 3.70 ] cm ?SUZANNE VTI ? 3.3 ?cm2 TAPSE ?2.38 ? [ >= 1.71 ] cm ?LVOT Peak Shaun ? 1.54 ? [ 0.70 - 1.10 ] m/s LVOT Diam ?2.1 ? cm LVOT Peak PG ? 10 ?mmHg LVOT VTI ? 24.8 ?cm MV Peak PG ? 5 ? mmHg MV Mean PG ? 3 ? mmHg MV E Peak Shaun ?1.2 ? [ 0.6 - 1.3 ] m/s MV A Peak Shaun ?1.1 ? [ 1.0 - 1.2 ] m/s MV PHT ? 75.9 ?[ 20.0 - 100.0 ] ms MV Decel Time ?149.1 ? [ 104.0 - 258.0 ] ms MVA PHT ?2.9 ? ms MV E/A Ratio ? 1.1 PV Peak Shaun ?1.4 ? [ 0.4 - 0.8 ] m/s PV Peak PG ? 7 ? mmHg Lat E` Shaun ? 0.15 ?[ 0.10 - 0.15 ] m/s Sept E' Shaun ?0.08 ?[ 0.08 - 0.15 ] m/s E/E` ? 8.00 RV S' ?0.16 ?m/s Measurement ?Value ?Normal Range ?Measurement ? Value ?Normal Range 2D/M Mode ? Doppler - FINDINGS: Study Quality: Technically difficult study. Contrast was employed for LV opacification and endocardial border enhancement. BP: Blood pressure: 136/69 mmHg. Left Ventricle: Mild left ventricular systolic dysfunction. Ejection Fraction is measured at (Simpsons) 50 %. Upper limits of normal left ventricular chamber size. Mild concentric left ventricular hypertrophy. Right Ventricle: Normal right ventricular systolic function. Normal right ventricular size. Left Atrium: The left atrium is normal in size. Right Atrium: The right atrium is normal in size. Atrial Septum: Normal appearing atrial septum. Mitral Valve: Normal mitral valve appearance and function. Aortic Valve: Normal aortic valve appearance and function. Aortic valve appears tricuspid in configuration. Tricuspid Valve: Normal tricuspid valve appearance and function. Pulmonic Valve: The pulmonic valve is not seen. Pericardium: Normal appearing pericardial thickness. No significant pericardial effusion. Aortic Root and Aorta: Normal caliber aortic root. Aortic Arch: The aortic arch is poorly visualized. IVC: The IVC is not seen. CONCLUSIONS: 1. Mild left ventricular systolic dysfunction. Ejection Fraction is measured at (Simpsons) 50 %. Upper limits of normal left ventricular chamber size. Mild concentric left ventricular hypertrophy. Electronically Signed By: Deandre Meza MD, [facility] 2023-10-03 16:50:39 CDT Procedure Note Deandre Meza MD - 10/03/2023 [facility] [address] [place] [address] ECHOCARDIOGRAM Patient Name: ERIBERTO CHAU I : 1990 Study Date: 10/03/2023 2:55:30 PM Gender: M Tech: Location: [address] Ref Provider: RADHA DIXON Height(Cm): 175 BSA: 2.14 Weight(Kg): 94.3 BP: 136/69 Order Provider: RADHA DIXON - PROCEDURES: Echocardiographic Report: Transthoracic Echocardiogram with 2D, M-Mode, Spectral and Color FlowDoppler examination and administration of intravenous contrast. INDICATIONS: Syncope. Measurements: 2D/M ModeDoppler Measurement Value Normal Range MeasurementValue Normal Range IVSd 2D 1.04 [ 0.60 - 1.00 ] cm AV Peak Vel1.7 [ 1.0 - 1.7 ] m/s LVIDd 2D 5.78 [ 4.20 - 5.80 ] cm AV Peak PG12 mmHg LVIDs 2D 4.28 [ 2.50 - 4.00 ] cm AV Mean PG6 mmHg LVPWd 2D 0.98 [ 0.60 - 1.00 ] cm AV VTI27.1 cm LA Dimension 2D 3.32 [ 3.00 - 4.00 ] cm SUZANNE V max3.2 cm2 AoR Diam 2D 3.42 [ 3.10 - 3.70 ] cm SUZANNE VTI3.3 cm2 TAPSE 2.38 [ >= 1.71 ] cm LVOT Peak Vel1.54 [ 0.70 - 1.10 ] m/s LVOT Diam 2.1 cm LVOT Peak PG 10 mmHg LVOT VTI 24.8 cm MV Peak PG 5 mmHg MV Mean PG 3 mmHg MV E Peak Shaun 1.2 [ 0.6 - 1.3 ] m/s MV A Peak Shaun 1.1 [ 1.0 - 1.2 ] m/s MV PHT 75.9 [ 20.0 - 100.0 ] ms MV Decel Time 149.1 [ 104.0 - 258.0 ] ms MVA PHT 2.9 ms MV E/A Ratio 1.1 PV Peak Shaun 1.4 [ 0.4 - 0.8 ] m/s PV Peak PG 7 mmHg Lat E` Shaun 0.15 [ 0.10 - 0.15 ] m/s Sept E' Shaun 0.08 [ 0.08 - 0.15 ] m/s E/E` 8.00 RV S' 0.16 m/s Measurement Value Normal Range MeasurementValue Normal Range 2D/M ModeDoppler - FINDINGS: Study Quality: Technically difficult study. Contrast was employed for LV opacificationand endocardial border enhancement. BP: Blood pressure: 136/69 mmHg. Left Ventricle: Mild left ventricular systolic dysfunction. Ejection Fraction is measuredat (Simpsons) 50 %. Upper limits of normal left ventricular chamber size. Mildconcentric left ventricular hypertrophy. Right Ventricle: Normal right ventricular systolic function. Normal right ventricularsize. Left Atrium: The left atrium is normal in size. Right Atrium: The right atrium is normal in size. Atrial Septum: Normal appearing atrial septum. Mitral Valve: Normal mitral valve appearance and function. Aortic Valve: Normal aortic valve appearance and function. Aortic valve appearstricuspid in configuration. Tricuspid Valve: Normal tricuspid valve appearance and function. Pulmonic Valve: The pulmonic valve is not seen. Pericardium: Normal appearing pericardial thickness. No significant pericardialeffusion. Aortic Root and Aorta: Normal caliber aortic root. Aortic Arch: The aortic arch is poorly visualized. IVC: The IVC is not seen. CONCLUSIONS: 1. Mild left ventricular systolic dysfunction. Ejection Fraction ismeasured at (Simpsons) 50 %. Upper limits of normal left ventricular chamber size.Mild concentric left ventricular hypertrophy. Electronically Signed By: Deandre Meza MD, [facility] 2023-10-03 16:50:39 CDT us Radha Dixon MD CV ECHO PROCEDURES Fin al Result * eGFR (10/03/2023 8:01 AM CDT) eGFR 87 >=60 mL/min/1. 73 m2 Comment: Interpretive Data [...] interpretive data was last reviewed 2021. Blood 10/03/2023 8:01 AM CDT 10/03/2023 9:56 AM CDT us Loyda Hernandez MD LAB BLOOD ORDERABLES Final Resu lt [facility] [address] Department [place] [address] * (ABNORMAL) Differential, auto (10/03/2023 8:01 AM CDT) Neutrophil abs 4.7 1.5 - 6.5 K/cumm Imm gran abs 0.1 0.0 - 0.1 K/cumm [facility] Lymphocyte abs 0.6(L) 0.8 - 3.3 K/cumm [facility] Monocyte abs 1.0(H) 0.2 - 0.8 K/cumm [facility] Eosinophil abs 0.0 0.0 - 0.5 K/cumm [facility] Basophil abs 0.0 0.0 - 0.1 K/cumm [facility] Neutrophil pct 74.0 % [facility] Comment: Interpretive Data Percent cell count reference ranges are not reported, since discordance with absolute values may lead to misinterpretation of CBC data. Current Interpretive Data was last revised on 2017. Imm gran pct 0.8 % [facility] Comment: Interpretive Data Percent cell count reference ranges are not reported, since discordance with absolute values may lead to misinterpretation of CBC data. Current Interpretive Data was last revised on 2017. Lymphocyte pct 9.7 % [facility] Comment: Interpretive Data Percent cell count reference ranges are not reported, since discordance with absolute values may lead to misinterpretation of CBC data. Current Interpretive Data was last revised on 2017. Monocyte pct 15.2 % [facility] Comment: Interpretive Data Percent cell count reference ranges are not reported, since discordance with absolute values may lead to misinterpretation of CBC data. Current Interpretive Data was last revised on 2017. Eosinophil pct 0.0 % [facility] Comment: Interpretive Data Percent cell count reference ranges are not reported, since discordance with absolute values may lead to misinterpretation of CBC data. Current Interpretive Data was last revised on 2017. Basophil pct 0.3 % [facility] Comment: Interpretive Data Percent cell count reference ranges are not reported, since discordance with absolute values may lead to misinterpretation of CBC data. Current Interpretive Data was last revised on 2017. Blood 10/03/2023 8:01 AM CDT 10/03/2023 9:26 AM CDT us Loyda Hernandez MD LAB BLOOD ORDERABLES Final Resu lt [facility] [address] Department [place] [address] * Magnesium (10/03/2023 8:01 AM CDT) Magnesium 1.9 1.4 - 2.5 mg/dL Blood 10/03/2023 8:01 AM CDT 10/03/2023 9:56 AM CDT us Radha Dixon MD LAB BLOOD ORDERABLES F inal Result Performing Organization Address [facility] Co de Phone Number [facility] [address] Department of [employer] [place], [place] [id number] * (ABNORMAL) CBC with auto differential (10/03/2023 8:01 AM CDT) WBC 6.3 3.8 - 9.9 K/cumm Hgb 10.0(L) 13.0 - 17.5 g/dL [facility] Hct 31.1(L) 38.9 - 50.3 % [facility] Plt 230 150 - 400 K/cumm [facility] MPV 9.3 9.1 - 12.3 fL [facility] RBC 3.35(L) 4.30 - 5.80 M/cumm [facility] MCV 92.8 81.3 - 96.4 fL [facility] MCH 29.9 27.1 - 33.3 pg [facility] MCHC 32.2(L) 32.3 - 35.7 g/dL [facility] RDW CV 15.0(H) 11.1 - 14.9 % [facility] RDW SD 50.0(H) 35.7 - 48.1 fL [facility] NRBC abs 0.00 0.00 - 0.01 K/cumm [facility] Blood 10/03/2023 8:01 AM CDT 10/03/2023 9:26 AM CDT us Loyda Hernandez MD LAB BLOOD ORDERABLES Final Resu lt Performing Organization Address City/[facility]/ZIP Co de Phone Number [facility] [address] Department of [employer] [place], [place] [id number] * (ABNORMAL) Basic metabolic panel (10/03/2023 8:01 AM CDT) Sodium 134(L) 135 - 145 mmol/L Potassium, pl 3.3 3.3 - 4.9 mmol/L [facility] Chloride 100 97 - 110 mmol/L [facility] CO2 22 22 - 32 mmol/L [facility] Anion gap 12 2 - 15 mmol/L [facility] BUN 15 6 - 25 mg/dL [facility] Creatinine 1.15 0.80 - 1.30 mg/dL [facility] Glucose 95 70 - 199 mg/dL [facility] Comment: Interpretive Data Fasting glucose >/= 126 [...] interpretive data was last revised 2022. Calcium 8.4(L) 8.5 - 10.3 mg/dL [facility] Blood 10/03/2023 8:01 AM CDT 10/03/2023 9:56 AM CDT us Loyda Hernandez MD LAB BLOOD ORDERABLES Final Resu lt Performing Organization Address City/[facility]/ZIP Co de Phone Number [facility] [address] Department [place] [address] * Urine culture Urine, clean voided (10/03/2023 1:00 AM CDT) Report Final Report: No growth Urine, clean voided 10/03/2023 1:00 AM CDT 10/03/2023 5:13 AM CDT Narrative [facility] - 10/05/2023 6:00 AM CDT Urine culture reflexed based upon urinalysis results. us Craig Reed MD LAB MICROBIOLOGY - GENERAL ORDERABLES Final Result Performing Organization Address City/[facility]/ZIP Co de Phone Number [facility] [address] Department [place] [address] * (ABNORMAL) Urinalysis, microscopic only (10/03/2023 1:00 AM CDT) WBC, ur >50(A) 0 - 5 /HPF RBC, ur >50(A) 0 - 2 /HPF [facility] Culture Reflex Comment Reflex to urine culture will be performed. [facility] Urine, clean voided 10/03/2023 1:00 AM CDT 10/03/2023 1:13 AM CDT us Craig Reed MD LAB URINE ORDERABLES Final Result [facility] [address] Department [place] [address] * (ABNORMAL) Urinalysis reflex to microscopic and culture Urine, clean voided (10/03/2023 1:00 AM CDT) Color, ur Tessa Yellow Clarity, ur Turbid(A) Clear [facility] Specific gravity, ur 1.035(H) 1.003 - 1.030 [facility] pH, urine 6.0 [facility] Comment: Interpretive Data ? Urine pH is affected by diet, medications, systemic acid-base disturbances, and renal tubular function. ??pH may affect urinary stone formation. ??For example, urine pH below 6.0 may help reduce the tendency for calcium phosphate stones and pH greater than 6.0 may reduce the tendency for uric acid stone formation. Source: [facility] Current Interpretive Data was last revised on 2017 Protein, ur ql 1+(A) Negative [facility] Glucose, ur ql Negative Negative [facility] Ketones, ur Negative Negative [facility] Bilirubin, ur Negative Negative [facility] Blood, ur 3+(A) Negative [facility] Urobilinogen, ur <2.0 <2.0 mg/dL [facility] Nitrite, ur Negative Negative [facility] Leukocyte esterase, ur 3+(A) Negative [facility] UA reflex comment Reflex to microscopic UA will be performed. [facility] Urine, clean voided 10/03/2023 1:00 AM CDT 10/03/2023 1:13 AM CDT us Craig Reed MD LAB MICROBIOLOGY - GENERAL ORDERABLES Final Result [facility] [address] Department [place] [address] * CT Abdomen Pelvis W Contrast (10/02/2023 4:44 PM CDT) Anatomical Region Laterality Modality Body N/A Computed Tomogra phy 10/02/2023 4:57 PM CDT Impressions 10/02/2023 4:57 PM CDT Mild right hydroureteronephrosis with multiple punctate stones in the right renal collecting system and several stones in the right ureter. None of the ureteral stones exceeds 2 mm in size. Electronically signed by: Brando Kumar M.D. Narrative 10/02/2023 4:57 PM CDT EXAMINATION: ??Computed tomography of the abdomen and pelvis without intravenous contrast HISTORY: Flank pain TECHNIQUE: ??Transaxial computed tomographic images of the abdomen and pelvis were obtained without intravenous contrast. ??Of note, 93 mL Optiray 350 venous contrast is documented, but there is no contrast opacification in any of the vessels on this examination, suggesting a technical failure. COMPARISON: 09/27/2023 FINDINGS: Endoluminal stent is noted within the descending thoracic aorta and extends to just above the aortic bifurcation. 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 ??The dissection flap can be seen terminating in the left common iliac artery. The stomach and duodenum are grossly normal. ??The noncontrast appearance of the liver is normal. ??The gallbladder is nondilated. The pancreas, spleen and adrenal glands are normal. ??There is mild right hydronephrosis and there are multiple punctate stones in the right renal pelvis. ??Several tiny stones are noted in the right ureter, which is dilated and which is surrounded by inflammatory stranding. ??No stones are evident on the left. No retroperitoneal or pelvic adenopathy. ??The colon and small bowel are normal in caliber. ??There is no ascites. ??The urinary bladder is mildly distended. ??No stones are evident within the urinary bladder. No acute or suspicious osseous findings. Procedure Note Brando Kumar MD - 10/02/2023 EXAMINATION: Computed tomography of the abdomen and pelvis without intravenous contrast HISTORY: Flank pain TECHNIQUE: Transaxial computed tomographic images of the abdomen and pelvis were obtained without intravenous contrast. Of note, 93 mL Optiray 350 venous contrast is documented, but there is no contrast opacification in any of the vessels on this examination, suggesting a technical failure. COMPARISON: 09/27/2023 FINDINGS: Endoluminal stent is noted within the descending thoracic aorta and extends to just above the aortic bifurcation. 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 The dissection flap can be seen terminating in the left common iliac artery. The stomach and duodenum are grossly normal. The noncontrast appearance of the liver is normal. The gallbladder is nondilated. The pancreas, spleen and adrenal glands are normal. There is mild right hydronephrosis and there are multiple punctate stones in the right renal pelvis. Several tiny stones are noted in the right ureter, which is dilated and which is surrounded by inflammatory stranding. No stones are evident on the left. No retroperitoneal or pelvic adenopathy. The colon and small bowel are normal in caliber. There is no ascites. The urinary bladder is mildly distended. No stones are evident within the urinary bladder. No acute or suspicious osseous findings. IMPRESSION: Mild right hydroureteronephrosis with multiple punctate stones in the right renal collecting system and several stones in the right ureter. None of the ureteral stones exceeds 2 mm in size. Electronically signed by: Brando Kumar M.D. Mellisa Woo MD IMG CT PROCEDURES Final R esult * Urine culture Urine, bladder (10/02/2023 1:56 PM CDT) Report Final Report: No growth Urine, bladder 10/02/2023 1: 56 PM CDT 10/02/2023 8:31 PM CDT Narrative [facility] - 10/04/2023 9:00 PM CDT Urine culture reflexed based upon urinalysis results. Mellisa Woo MD LAB MICROBIOLOGY - GENERA L ORDERABLES Final Result Performing Organization Address [facility] de Phone Number [facility] [address] [facility] [place] [address] * (ABNORMAL) Urinalysis, microscopic only (10/02/2023 1:56 PM CDT) WBC, ur >50(A) 0 - 5 /HPF RBC, ur >50(A) 0 - 2 /HPF [facility] Epithelial cells, squamous, ur 1-5 0 - 5 /HPF [facility] Bacteria, ur 3+(A) [facility] Mucous, ur Present(A) [facility] Culture Reflex Comment Reflex to urine culture will be performed. [facility] Urine, bladder 10/02/2023 1: 56 PM CDT 10/02/2023 2:04 PM CDT Mellisa Woo MD LAB URINE ORDERABLES Sally l Result Performing Organization Address [facility] de Phone Number [facility] [address] [facility] [place] [address] * (ABNORMAL) Urinalysis reflex to microscopic and culture Urine, bladder (10/02/2023 1:56 PM CDT) Color, ur Tessa Yellow Clarity, ur Turbid(A) Clear [facility] Specific gravity, ur 1.023 1.003 - 1.030 [facility] pH, urine 6.0 [facility] Comment: Interpretive Data ? Urine pH is affected by diet, medications, systemic acid-base disturbances, and renal tubular function. ??pH may affect urinary stone formation. ??For example, urine pH below 6.0 may help reduce the tendency for calcium phosphate stones and pH greater than 6.0 may reduce the tendency for uric acid stone formation. Source: [facility] Current Interpretive Data was last revised on 2017 Protein, ur ql 2+(A) Negative [facility] Glucose, ur ql Negative Negative [facility] Ketones, ur Negative Negative [facility] Bilirubin, ur Negative Negative [facility] Blood, ur 3+(A) Negative [facility] Urobilinogen, ur <2.0 <2.0 mg/dL [facility] Nitrite, ur Negative Negative [facility] Leukocyte esterase, ur 4+(A) Negative [facility] UA reflex comment Reflex to microscopic UA will be performed. [facility] Urine, bladder 10/02/2023 1: 56 PM CDT 10/02/2023 1:56 PM CDT us Mellisa Woo MD LAB MICROBIOLOGY - GENERA L ORDERABLES Final Result [facility] [address] [place] [address] * (ABNORMAL) eGFR (10/02/2023 1:37 PM CDT) eGFR 55(L) >=60 mL/min/1. 73 m2 Comment: Interpretive Data Reference Interval Normal ?>/= 90 mL/min/1.73m2 Mildly decreased* ? 60 - 89 mL/min/1.73m2 Mildly to moderately decreased ?45 - 59 mL/min/1.73m2 Moderately to severely decreased ??30 - 44 mL/min/1.73m2 Severely decreased ?15 - 29 mL/min/1.73m2 Kidney Failure ?< 15 ??mL/min/1.73m2 *Relative to young adult level Estimated glomerular filtration rate is determined by the 2021 CKD-EPI equation recommended by the National Kidney [...] interpretive data was last reviewed 2021. Blood 10/02/2023 1:37 PM CDT 10/02/2023 1:56 PM CDT us Mellisa Woo MD LAB BLOOD ORDERABLES Sally zhang Result [facility] [address] [place] [address] * (ABNORMAL) Differential, auto (10/02/2023 1:37 PM CDT) Neutrophil abs 6.0 1.5 - 6.5 K/cumm Imm gran abs 0.0 0.0 - 0.1 K/cumm [facility] Lymphocyte abs 0.5(L) 0.8 - 3.3 K/cumm [facility] Monocyte abs 0.9(H) 0.2 - 0.8 K/cumm [facility] Eosinophil abs 0.1 0.0 - 0.5 K/cumm [facility] Basophil abs 0.0 0.0 - 0.1 K/cumm [facility] Neutrophil pct 79.8 % [facility] Comment: Interpretive Data Percent cell count reference ranges are not reported, since discordance with absolute values may lead to misinterpretation of CBC data. Current Interpretive Data was last revised on 2017. Imm gran pct 0.5 % [facility] Comment: Interpretive Data Percent cell count reference ranges are not reported, since discordance with absolute values may lead to misinterpretation of CBC data. Current Interpretive Data was last revised on 2017. Lymphocyte pct 7.1 % [facility] Comment: Interpretive Data Percent cell count reference ranges are not reported, since discordance with absolute values may lead to misinterpretation of CBC data. Current Interpretive Data was last revised on 2017. Monocyte pct 11.5 % [facility] Comment: Interpretive Data Percent cell count reference ranges are not reported, since discordance with absolute values may lead to misinterpretation of CBC data. Current Interpretive Data was last revised on 2017. Eosinophil pct 0.8 % [facility] Comment: Interpretive Data Percent cell count reference ranges are not reported, since discordance with absolute values may lead to misinterpretation of CBC data. Current Interpretive Data was last revised on 2017. Basophil pct 0.3 % [facility] Comment: Interpretive Data Percent cell count reference ranges are not reported, since discordance with absolute values may lead to misinterpretation of CBC data. Current Interpretive Data was last revised on 2017. Blood 10/02/2023 1:37 PM CDT 10/02/2023 1:56 PM CDT Mellisa Woo MD LAB BLOOD ORDERABLES Sally l Result Performing Organization Address [facility] Co de Phone Number [facility] [address] [place] [address] * Lipase (10/02/2023 1:37 PM CDT) [facility] Lipase 10 10 - 99 Units/L Blood 10/02/2023 1:37 PM CDT 10/02/2023 1:56 PM CDT Mellisa Woo MD LAB BLOOD ORDERABLES Sally l Result Performing Organization Address [facility]/ZIP Co de Phone Number [facility] [address] [place] [address] * (ABNORMAL) Comprehensive metabolic panel (10/02/2023 1:37 PM CDT) [facility] Sodium 138 135 - 145 mmol/L Potassium, pl 3.1(L) 3.3 - 4.9 mmol/L [facility] Chloride 101 97 - 110 mmol/L [facility] CO2 25 22 - 32 mmol/L [facility] Anion gap 12 2 - 15 mmol/L [facility] BUN 27(H) 6 - 25 mg/dL [facility] Creatinine 1.70(H) 0.80 - 1.30 mg/dL [facility] Glucose 93 70 - 199 mg/dL [facility] Comment: Interpretive Data Fasting glucose >/= 126 [...] interpretive data was last revised 2022. Calcium 9.2 8.5 - 10.3 mg/dL [facility] Bilirubin, total 0.4 0.1 - 1.2 mg/dL [facility] Protein, pl 8.0 6.5 - 8.5 g/dL [facility] Albumin 4.3 3.5 - 5.0 g/dL [facility] Alk phos 90 40 - 130 Units/L [facility] ALT 8 7 - 55 Units/L [facility] AST 10 10 - 50 Units/L [facility] Blood 10/02/2023 1:37 PM CDT 10/02/2023 1:56 PM CDT us Mellisa Woo MD LAB BLOOD ORDERABLES Sally zhang Result [facility] [address] Department [place] [address] * (ABNORMAL) CBC with auto differential (10/02/2023 1:37 PM CDT) Pathologist [facility] WBC 7.5 3.8 - 9.9 K/cumm Hgb 10.7(L) 13.0 - 17.5 g/dL [facility] Hct 32.2(L) 38.9 - 50.3 % [facility] Plt 259 150 - 400 K/cumm [facility] MPV 9.4 9.1 - 12.3 fL [facility] RBC 3.62(L) 4.30 - 5.80 M/cumm [facility] MCV 89.0 81.3 - 96.4 fL [facility] MCH 29.6 27.1 - 33.3 pg [facility] MCHC 33.2 32.3 - 35.7 g/dL [facility] RDW CV 14.8 11.1 - 14.9 % [facility] RDW SD 48.2(H) 35.7 - 48.1 fL [facility] NRBC abs 0.00 0.00 - 0.01 K/cumm [facility] Blood 10/02/2023 1:37 PM CDT 10/02/2023 1:56 PM CDT us Mellisa Woo MD LAB BLOOD ORDERABLES Sally zhang Result [facility] [address] Department [place] [address] documented in this encounter Visit Diagnoses Diagnosis Pyelonephritis- Primary Unspecified pyelonephritis Pyelonephritis [N12] Unspecified pyelonephritis Hypokalemia [E87.6] Hypopotassemia ANGI (acute kidney injury) (HCC) [N17.9] Syncope, unspecified syncope type [R55] Dissection of aorta, unspecified portion of aorta (HCC) [I71.00] Primary hypertension [I10] Unspecified essential hypertension Weight loss [R63.4] Loss of weight Hypokalemia Hypopotassemia ANGI (acute kidney injury) (HCC) Syncope Syncope and collapse Dissection of aorta, unspecified portion of aorta (HCC) HTN (hypertension) Unspecified essential hypertension Weight loss Loss of weight documented in this encounter Admitting Diagnoses Diagnosis Pyelonephritis Unspecified pyelonephritis documented in this encounter Administered Medications Inactive Administered Medications - up to 3 most recent administrations Medication Order MAR Action Action Date Dose Rate Site acetaminophen (TYLENOL) suppository 650 mg 650 mg, rectal, Once, On Tue10/04/23 at 0245, For 1 dose Given 10/04/2023 2:26 AM CDT 650 mg acetaminophen (TYLENOL) tablet 1,000 mg 1,000 mg, oral, Once, On Tue10/04/23 at 0715, For 1 dose, Pre-Op, Indications: Pre-Emptive AnalgesiaIndications:Pre-Emptive Analgesia Given 10/04/2023 7:02 AM CDT 500 mg acetaminophen (TYLENOL) tablet 650 mg 650 mg, oral, Every 4 hours PRN, 1st line for pain, fever, fever greater than 38.3 C, Starting on Tue10/02/23 at 2051, Indications: Fever, PainIndications:Fever,Pain Given 10/03/2023 8:52 PM CDT 650 mg Given 10/03/2023 5:24 PM CDT 650 mg Given 10/03/2023 10:14 AM CDT 650 mg amitriptyline (ELAVIL) tablet 25 mg 25 mg, oral, Nightly, First dose on Tue10/02/23 at 2130 Given 10/03/2023 8:52 PM CDT 25 mg Given 10/02/2023 9:07 PM CDT 25 mg amLODIPine (NORVASC) tablet 10 mg 10 mg, oral, Daily, First dose on Tue10/03/23 at 0900, On hold since Tue10/04/2023 at 0106 until manually unheld Given 10/03/2023 10:18 AM CDT 10 mg cefdinir (OMNICEF) capsule 300 mg 300 mg, oral, 2 times daily, First dose on Tue10/04/23 at 1000, For 13 days, Indications: Urinary Tract/Genitourinary InfectionIndications:Urinary Tract/Genitourinary Infection Given 10/04/2023 11:15 AM CDT 300 mg cefTRIAXone (ROCEPHIN) 2,000 mg/20 mL in sterile water (premix) 2,000 mg 2,000 mg, intravenous, at 240 mL/hr, Administer over 5 Minutes, Every 24 hours, First dose on Tue10/02/23 at 1600, Indications: Urinary Tract/Genitourinary InfectionIndications:Urinary Tract/Genitourinary Infection Given 10/03/2023 4:34 PM CDT 2,000 mg 2 40 mL/hr Given 10/02/2023 3:34 PM CDT 2,000 mg 240 mL/hr diazePAM (VALIUM) injection 2.5 mg 2.5 mg, intravenous, Administer over 1 Minutes, Once, On Tue10/02/23 at 1530, For 1 dose Given 10/02/2023 3:43 PM CDT 2.5 mg dimenhyDRINATE (DRAMAMINE) tablet 25 mg 25 mg, oral, Once, On Tue10/04/23 at 0715, For 1 dose, Pre-Op, Indications: Prevention of Nausea and VomitingIndications:Prevention of Nausea and Vomiting Given 10/04/2023 7:03 AM CDT 25 mg enoxaparin (LOVENOX) syringe 40 mg 40 mg, subcutaneous, Daily (for enoxaparin), First dose on Tue10/02/23 at 2130, Indications: Deep Vein Thrombosis PreventionIndications:Deep Vein Thrombosis Prevention Given 10/03/2023 8:51 PM CDT 40 mg Left Upper Arm Given 10/02/2023 9:08 PM CDT 40 mg Le ft Upper Arm fentaNYL (SUBLIMAZE) preservative free injection 50 mcg 50 mcg, intravenous, Once, On Tue10/02/23 at 1406, For 1 dose Given 10/02/2023 2:08 PM CDT 50 mcg gabapentin (NEURONTIN) capsule 300 mg 300 mg, oral, Once, On Tue10/04/23 at 0715, For 1 dose, Pre-Op, Indications: Pre-Emptive AnalgesiaIndications:Pre-Emptive Analgesia Given 10/04/2023 7:02 AM CDT 3 00 mg gabapentin (NEURONTIN) tablet 600 mg 600 mg, oral, 3 times daily, First dose on Tue10/02/23 at 2130 Given 10/03/2023 8:52 PM CDT 600 mg Given 10/03/2023 4:39 PM CDT 600 mg Given 10/03/2023 10:17 AM CDT 600 mg hydrALAZINE (APRESOLINE) tablet 50 mg 50 mg, oral, 3 times daily, First dose on Tue10/02/23 at 2130, On hold since Tue10/04/2023 at 0106 until manually unheld Given 10/03/2023 8:52 PM CDT 50 mg Given 10/03/2023 4:35 PM CDT 50 mg Given 10/03/2023 10:18 AM CDT 50 mg HYDROcodone-acetaminophen (NORCO) 5-325 mg per tablet 1 tablet 1 tablet, oral, Every 6 hours PRN, 2nd line for pain, Starting on Tue10/02/23 at 2037, Indications: PainIndications:Pain Given 10/02/2023 8:40 PM CDT 1 ta blet HYDROcodone-acetaminophen (NORCO) 5-325 mg per tablet 1 tablet 1 tablet, oral, Every 4 hours PRN, 2nd line for pain, Starting on Tue10/03/23 at 0039, Indications: PainIndications:Pain Given 10/04/2023 12:55 AM CDT 1 t ablet Given 10/03/2023 10:16 AM CDT 1 tablet Given 10/03/2023 12:42 AM CDT 1 tablet HYDROmorphone (DILAUDID) injection 1 mg 1 mg, intravenous, Administer over 2 Minutes, Once, On Tue10/02/23 at 1320, For 1 dose Given 10/02/2023 1:42 PM CDT 1 mg HYDROmorphone (DILAUDID) injection 1 mg 1 mg, intravenous, Administer over 2 Minutes, Every 2 hours PRN, 2nd line for pain, Starting on Tue10/02/23 at 1641 Given 10/04/2023 5:32 AM CDT 1 mg Given 10/03/2023 9:20 PM CDT 1 mg Given 10/03/2023 7:25 PM CDT 1 mg ibuprofen (ADVIL,MOTRIN) tablet 400 mg 400 mg, oral, 3 times daily, First dose on Tue10/03/23 at 2100, For 1 dose Given 10/04/2023 12:55 AM CDT 400 mg ioversoL (OPTIRAY 350) syringe 100 mL 100 mL, intravenous, Once in imaging, contrast, Starting on Tue10/02/23 at 1620, For 1 dose Contrast Given 10/02/2023 4:33 PM CDT 93 mL labetaloL (NORMODYNE,TRANDATE) tablet 400 mg 400 mg, oral, 2 times daily, First dose on Tue10/02/23 at 2130, Please hold for SBP < 120 Given 10/04/2023 9:42 AM CDT 400 mg Given 10/03/2023 10:18 AM CDT 400 mg Given 10/02/2023 9:07 PM CDT 400 mg Lactated Ringer's (LR) infusion 30 mL/hr, intravenous, Continuous, Starting on Tue10/04/23 at 0715, Pre-Op Restarted 10/04/2023 7:39 AM CDT Rate/Dose Verify 10/04/2023 7:16 AM CDT 30 mL/h r New Bag 10/04/2023 7:02 AM CDT 30 mL/hr 30 mL/hr ondansetron (ZOFRAN) injection 4 mg 4 mg, intravenous, Administer over 2 Minutes, Once, On Tue10/02/23 at 1529, For 1 dose Given 10/02/2023 3:34 PM CDT 4 mg ondansetron (ZOFRAN) injection 4 mg 4 mg, intravenous, Administer over 2 Minutes, Every 6 hours PRN, nausea, vomiting, if not tolerating PO, Starting on Tue10/02/23 at 2027, Indications: Nausea and VomitingIndications:Nausea and Vomiting Given 10/02/2023 8:35 PM CDT 4 mg ondansetron ODT (ZOFRAN-ODT) disintegrating tablet 4 mg 4 mg, oral, Every 6 hours PRN, nausea, vomiting, Starting on Tue10/02/23 at 2027, Indications: Nausea and VomitingIndications:Nausea and Vomiting Given 10/03/2023 4:37 AM CDT 4 mg oxyCODONE (ROXICODONE) tablet 5 mg 5 mg, oral, As needed, 1st line for pain, Starting on Tue10/04/23 at 0754, For 2 doses, Phase I, 1st ORAL choice for pain, when the patient is able to tolerate PO medications. May repeat in 1 hour if pain is uncontrolled or increasing after 1st dose., Indications: PainIndications:Pain Given 10/04/2023 8:40 AM CDT 5 mg perflutren protein-a (OPTISON) 3 mL in sodium chloride 0.9% 8 mL syringe 1-8 mL, intravenous, Once in imaging, contrast, Starting on Tue10/03/23 at 1605, For 1 dose, Intra-Procedure (CV) Contrast Given 10/03/2023 4:05 PM CDT 4 mL polyethylene glycol (MIRALAX) packet 17 g 17 g, oral, Daily PRN, constipation, Starting on Tue10/02/23 at 2051, Indications: constipationIndications:constip ation potassium chloride 20 mEq in sodium chloride 0.9% 250 mL IVPB 20 mEq, intravenous, at 130 mL/hr, Administer over 2 Hours, Every 2 hours, First dose on Tue10/03/23 at 1600, For 3 doses, Total dose = 60 mEq, Indications: hypokalemiaIndications:hypokale kailash New Bag 10/03/2023 9:26 PM CDT 20 mEq 130 mL/hr New Bag 10/03/2023 6:47 PM CDT 20 mEq 130 mL/hr New Bag 10/03/2023 4:35 PM CDT 20 mEq 130 mL/hr potassium chloride ER (KLOR-CON) extended release tablet 40 mEq 40 mEq, oral, Once, On Tue10/02/23 at 2130, For 1 dose, Do not crush, chew, cut, dissolve, open or otherwise manipulate tablet/capsule. Given 10/02/2023 9:07 PM CDT 40 mEq prochlorperazine (COMPAZINE) injection 5 mg 5 mg, intravenous, Administer over 2 Minutes, Every 6 hours PRN, nausea, vomiting, 2nd line, Starting on Tue10/03/23 at 0755 Given 10/03/2023 9:17 AM CDT 5 mg QUEtiapine (SEROquel) tablet 50 mg 50 mg, oral, Nightly, First dose on Tue10/02/23 at 2130 Given 10/03/2023 8:52 PM CDT 50 mg Given 10/02/2023 9:07 PM CDT 50 mg ramelteon (ROZEREM) tablet 8 mg 8 mg, oral, Nightly PRN, sleep, Starting on Tue10/02/23 at 2051, Indications: Sleep-Onset InsomniaIndications:Sleep-Onset Insomnia Given 10/03/2023 8:52 PM CDT 8 m g Given 10/02/2023 9:07 PM CDT 8 mg senna-docusate (PERICOLACE) 8.6-50 mg per tablet 2 tablet 2 tablet, oral, 2 times daily, First dose on Tue10/02/23 at 2130 Given 10/04/2023 9:41 AM CDT 2 tablets Given 10/03/2023 10:16 AM CDT 2 tablets Given 10/02/2023 9:07 PM CDT 2 tablets sodium chloride 0.9% bolus 1,000 mL 1,000 mL, intravenous, at 1,000 mL/hr, Administer over 1 Hours, Once, On Tue10/02/23 at 1320, For 1 dose New 10/02/2023 1:43 PM CDT 1,000 mL 1000 mL/hr sodium chloride 0.9% bolus 500 mL 500 mL, intravenous, at 250 mL/hr, Administer over 2 Hours, Once, On Tue10/04/23 at 0130, For 1 dose New 10/04/2023 12:56 AM CDT 500 mL 250 mL/hr sodium chloride 0.9% flush 0.5-20 mL 0.5-20 mL, intra-catheter, Every 8 hours scheduled, First dose on Tue10/02/23 at 2200, Flush volume based on line type and size. Given 10/03/2023 3:00 PM CDT 10 mL sodium chloride 0.9% infusion 100 mL/hr, intravenous, Continuous, Starting on Tue10/02/23 at 2130, For 12 hours New 10/03/2023 4:38 AM CDT 100 mL/hr 10 0 mL/hr New 10/02/2023 9:06 PM CDT 100 mL/hr 100 mL/hr sodium chloride 0.9% infusion 125 mL/hr, intravenous, Continuous, Starting on Tue10/04/23 at 0145, For 24 hours New 10/04/2023 2:58 AM CDT 125 mL/hr 12 5 mL/hr tamsulosin (FLOMAX) extended release capsule 0.4 mg 0.4 mg, oral, Daily, First dose on Tue10/03/23 at 0900, Do not crush, chew, cut, dissolve, open or otherwise manipulate tablet/capsule. Given 10/04/2023 9:41 AM CDT 0.4 mg Given 10/03/2023 10:17 AM CDT 0.4 mg documented in this encounter Discontinued Medications Medication Sig Discontinue Reason Start Date End Da te tamsulosin (Flomax) 0.4 mg extended release capsuleIndications:Uroli thiasis Take 1 capsule (0.4 mg total) by mouth daily Take while stent is in place and for three days after stent removal 09/27/2023 10/02/2023 HYDROcodone-acetaminophe n (NORCO) 5-325 mg per tabletIndications:Pain Take 1 tablet by mouth every 6 (six) hours as needed for pain 10/04/2023 documented as of this encounter Active and Recently Administered Medications Times are shown in CDT. Scheduled Medication Order 10/02/2023 10/03/2023 10/04/2023 acetaminophen (TYLENOL) suppository 650 mg (COMPLETED) 650 mg, rectal, Once, On Tue10/04/23 at 0245, For 1 dose 0226 (Given - Provider: Migel Oliveira) acetaminophen (TYLENOL) tablet 1,000 mg (COMPLETED) 1,000 mg, oral, Once, On Tue10/04/23 at 0715, For 1 dose, Pre-Op, Indications: Pre-Emptive Analgesia 0702 (Given - Provider: Darrion Rivas RN) amitriptyline (ELAVIL) tablet 25 mg 25 mg, oral, Nightly, First dose on Tue10/02/23 at 2130 2107 (Given - Provider: Migel Oliveira) 2052 (Given - Provider: Migel Oliveira) 0626 (JUL Hold - Provider: Automatic Transfer Provider - Reason: Patient not available)0923 (JUL Unhold - Provider: Automatic Transfer Provider) amLODIPine (NORVASC) tablet 10 mg 10 mg, oral, Daily, First dose on Tue10/03/23 at 0900, On hold since Tue10/04/2023 at 0106 until manually unheld 1018 (Given - Provider: Naomi Mejia RN) 0106 (Held by Provider - Provider: Kim Patel MD - Reason: Other)0900 (Dose Auto Held - Provider: Kim Patel MD)1837 (Unheld by Provider - Provider: Automatic Discharge Provider) cefdinir (OMNICEF) capsule 300 mg 300 mg, oral, 2 times daily, First dose on Tue10/04/23 at 1000, For 13 days, Indications: Urinary Tract/Genitourinary Infection 1115 (Given - Provider: Naomi Mejia RN) cefTRIAXone (ROCEPHIN) 2,000 mg/20 mL in sterile water (premix) 2,000 mg (CANCELED) 2,000 mg, intravenous, at 240 mL/hr, Administer over 5 Minutes, Every 24 hours, First dose on 10/02/23 at 1600, Indications: Urinary Tract/Genitourinary Infection 1534 (Given - Provider: Cayla Toussaint RN) 1634 (Given - Provider: Naomi Mejia, BRIA) 0626 (JUL Hold - Provider: Automatic Transfer Provider - Reason: Patient not available)0923 (JUL Unhold - Provider: Automatic Transfer Provider) diazePAM (VALIUM) injection 2.5 mg (COMPLETED) 2.5 mg, intravenous, Administer over 1 Minutes, Once, On 10/02/23 at 1530, For 1 dose 1543 (Given - Provider: Cayla Toussaint RN) dimenhyDRINATE (DRAMAMINE) tablet 25 mg (COMPLETED) 25 mg, oral, Once, On Tue10/04/23 at 0715, For 1 dose, Pre-Op, Indications: Prevention of Nausea and Vomiting 0703 (Given - Provider: Darrion Rivas RN) enoxaparin (LOVENOX) syringe 40 mg 40 mg, subcutaneous, Daily (for enoxaparin), First dose on 10/02/23 at 2130, Indications: Deep Vein Thrombosis Prevention 210 (Given - Provider: Migel Oliveira) 205 (Given - Provider: Migel Oliveira) 06 (JUL Hold - Provider: Automatic Transfer Provider - Reason: Patient not available)09 (JUL Unhold - Provider: Automatic Transfer Provider) fentaNYL (SUBLIMAZE) preservative free injection 50 mcg (COMPLETED) 50 mcg, intravenous, Once, On Tue10/02/23 at 1406, For 1 dose 1408 (Given - Provider: Cayla Toussaint RN) gabapentin (NEURONTIN) capsule 300 mg (COMPLETED) 300 mg, oral, Once, On Tue10/04/23 at 0715, For 1 dose, Pre-Op, Indications: Pre-Emptive Analgesia 0702 (Given - Provider: Darrion Rivas RN) gabapentin (NEURONTIN) tablet 600 mg 600 mg, oral, 3 times daily, First dose on 10/02/23 at 2130 2107 (Not Given - Provider: Migel Oliveira - Reason: Patient/family refused) 1017 (Given - Provider: Naomi Mejia RN - Comment: Vomiting)1639 (Given - Provider: Naomi Mejia RN)2051 (Given - Provider: Migel Oliveira) 06 (JUL Hold - Provider: Automatic Transfer Provider - Reason: Patient not available)0900 (Dose Auto Held - Provider: Automatic Transfer Provider)09 (JUL Unhold - Provider: Automatic Transfer Provider) hydrALAZINE (APRESOLINE) tablet 50 mg 50 mg, oral, 3 times daily, First dose on Tue10/02/23 at 2130, On hold since Tue10/04/2023 at 0106 until manually unheld 2106 (Given - Provider: Migel Oliveira) 1018 (Given - Provider: Naomi Mejia RN - Comment: Vomiting)163 (Given - Provider: Naomi Mejia RN)2051 (Given - Provider: Migel Oliveira) 010 (Held by Provider - Provider: Kim Patel MD - Reason: Other)09 (Dose Auto Held - Provider: Kim Patel MD)183 (Unheld by Provider - Provider: Automatic Discharge Provider) HYDROmorphone (DILAUDID) injection 1 mg (COMPLETED) 1 mg, intravenous, Administer over 2 Minutes, Once, On 10/02/23 at 1320, For 1 dose 134 (Given - Provider: Cayla Toussaint, BRIA) ibuprofen (ADVIL,MOTRIN) tablet 400 mg (COMPLETED) 400 mg, oral, 3 times daily, First dose on Tue10/03/23 at 2100, For 1 dose 2047 (Hold - Provider: Migel Oliveira - Reason: Resident/resident account service representative refused - education provided) 005 (Given - Provider: Migel Oliveira) labetaloL (NORMODYNE,TRANDATE) tablet 400 mg 400 mg, oral, 2 times daily, First dose on 10/02/23 at 2130, Please hold for SBP < 120 2106 (Given - Provider: Migel Oliveira) 1018 (Given - Provider: Naomi Mejia RN)2046 (Not Given - Provider: Migel Oliveira - Reason: Resident/resident account service representative refused - education provided) 06 (JUL Hold - Provider: Automatic Transfer Provider - Reason: Patient not available)0900 (Dose Auto Held - Provider: Automatic Transfer Provider)09 (JUL Unhold - Provider: Automatic Transfer Provider)0942 (Given - Provider: Naomi Mejia, BRIA) ondansetron (ZOFRAN) injection 4 mg (COMPLETED) 4 mg, intravenous, Administer over 2 Minutes, Once, On 10/02/23 at 1529, For 1 dose 1534 (Given - Provider: Cayla Toussaint, BRIA) potassium chloride 20 mEq in sodium chloride 0.9% 250 mL IVPB (COMPLETED) 20 mEq, intravenous, at 130 mL/hr, Administer over 2 Hours, Every 2 hours, First dose on Tue10/03/23 at 1600, For 3 doses, Total dose = 60 mEq, Indications: hypokalemia 1635 (New Bag - Provider: Naomi Mejia, BRIA)1845 (Stopped - Provider: Naomi Mejia, BRIA)1846 (New Bag - Provider: Naomi Mejia, BRIA)2010 (Stopped - Provider: Migel Oliveira)2125 (New Bag - Provider: Migel Oliveira) 31 (Stopped - Provider: Migel Oliveira) potassium chloride ER (KLOR-CON) extended release tablet 40 mEq (COMPLETED) 40 mEq, oral, Once, On 10/02/23 at 2130, For 1 dose, Do not crush, chew, cut, dissolve, open or otherwise manipulate tablet/capsule. 2106 (Given - Provider: Migel Oliveira) QUEtiapine (SEROquel) tablet 50 mg 50 mg, oral, Nightly, First dose on 10/02/23 at 2130 210 (Given - Provider: Migel Olievira) 2051 (Given - Provider: Migel Oliveira) 06 (JUL Hold - Provider: Automatic Transfer Provider - Reason: Patient not available)09 (JUL Unhold - Provider: Automatic Transfer Provider) senna-docusate (PERICOLACE) 8.6-50 mg per tablet 2 tablet 2 tablet, oral, 2 times daily, First dose on 10/02/23 at 2130 210 (Given - Provider: Migel Oliveira) 1016 (Given - Provider: Naomi Mjeia, BRIA - Comment: Pt was vomiting)2051 (Not Given - Provider: Migel Oliveira - Reason: Patient/family refused) 0626 (JUL Hold - Provider: Automatic Transfer Provider - Reason: Patient not available)0900 (Dose Auto Held - Provider: Automatic Transfer Provider)0923 ([facility] Unhold - Provider: Automatic Transfer Provider)0941 (Given - Provider: Naomi Mejia, BRIA) sodium chloride 0.9% bolus 1,000 mL (COMPLETED) 1,000 mL, intravenous, at 1,000 mL/hr, Administer over 1 Hours, Once, On Tue10/02/23 at 1320, For 1 dose 1343 (New Bag - Provider: Cayla Toussaint, BRIA)1522 (Stopped - Provider: Cayla Toussaint, BRIA) sodium chloride 0.9% bolus 500 mL (COMPLETED) 500 mL, intravenous, at 250 mL/hr, Administer over 2 Hours, Once, On Tue10/04/23 at 0130, For 1 dose 0056 (New Bag - Provider: Migel Oliveira)0257 (Stopped - Provider: Migel Oliveira) sodium chloride 0.9% flush 0.5-20 mL 0.5-20 mL, intra-catheter, Every 8 hours scheduled, First dose on Tue10/02/23 at 2200, Flush volume based on line type and size. 2108 (Not Given - Provider: Migel Oliveira - Reason: Other) 0600 (Hold - Provider: Migel Oliveira - Reason: Other)1500 (Given - Provider: Naomi Mejia, BRIA)2200 (Hold - Provider: Migel Oliveira - Reason: Other) 0600 (Hold - Provider: Migel Oliveira - Reason: Other)0626 ([facility] Hold - Provider: Automatic Transfer Provider - Reason: Patient not available)0923 ([facility] Unhold - Provider: Automatic Transfer Provider)1400 (Due) tamsulosin (FLOMAX) extended release capsule 0.4 mg 0.4 mg, oral, Daily, First dose on Tue10/03/23 at 0900, Do not crush, chew, cut, dissolve, open or otherwise manipulate tablet/capsule. 1017 (Given - Provider: Naomi Mejia, BRIA) 0626 ([facility] Hold - Provider: Automatic Transfer Provider - Reason: Patient not available)0900 (Dose Auto Held - Provider: Automatic Transfer Provider)0923 ([facility] Unhold - Provider: Automatic Transfer Provider)0941 (Given - Provider: Naomi Mejia RN) Continuous Medication Order 10/02/2023 10/03/2023 10/04/2023 Lactated Ringer's (LR) infusion 30 mL/hr, intravenous, Continuous, Starting on Tue10/04/23 at 0715, Pre-Op 0702 (New Bag - Provider: Darrion Rivas RN)0716 (Rate/Dose Verify - Provider: Franci Maloney CRNA)0738 (Paused - Provider: Franci Maloney CRNA - Comment: Switch to gravity)0739 (Restarted - Provider: Franci Maloney CRNA)1837 (Due: Stopped) sodium chloride 0.9% infusion () 100 mL/hr, intravenous, Continuous, Starting on 10/02/23 at 2130, For 12 hours 2106 (New Bag - Provider: Migel Oliveira) 0438 (New Bag - Provider: Migel Oliveira) sodium chloride 0.9% infusion 125 mL/hr, intravenous, Continuous, Starting on Tue10/04/23 at 0145, For 24 hours 0258 (New Bag - Provider: Migel Oliveira)1837 (Due: Stopped) PRN Medication Order 10/02/2023 10/03/2023 10/04/2023 acetaminophen (TYLENOL) tablet 650 mg 650 mg, oral, Every 4 hours PRN, 1st line for pain, fever, fever greater than 38.3 C, Starting on 10/02/23 at 2051, Indications: Fever, Pain 2106 (Given - Provider: Migel Oliveira) 1014 (Given - Provider: Naomi Mejia RN)1724 (Given - Provider: Naomi Mejia, BRIA)2051 (Given - Provider: Migel Oliveira) 0626 (MAR Hold - Provider: Automatic Transfer Provider - Reason: Patient not available)0923 ([facility] Unhold - Provider: Automatic Transfer Provider) capsaicin (ZOSTRIX) 0.025 % cream 1 Application 1 Application, topical, 2 times daily PRN, pain, Starting on 10/02/23 at 2051, Apply to affected area: rash 0626 (MAR Hold - Provider: Automatic Transfer Provider - Reason: Patient not available)0923 ([facility] Unhold - Provider: Automatic Transfer Provider) Carrier Fluids for Secondary Infusion - 0.9% Sodium Chloride 30 mL, intravenous, As needed, For priming tubing and/or flushing, Starting on 10/02/23 at 2051, 0-250 ml/hr to flush line after IV infusions when no maintenance IV ordered. Infuse 30mL at the same rate as the secondary infusion. Run as primary IV, not intended for KVO. 06 ([facility] Hold - Provider: Automatic Transfer Provider - Reason: Patient not available)09 ([facility] Unhold - Provider: Automatic Transfer Provider) dicyclomine (BENTYL) capsule 20 mg 20 mg, oral, Every 6 hours PRN, For abdominal pain, Starting on 10/02/23 at 2051 06 ([facility] Hold - Provider: Automatic Transfer Provider - Reason: Patient not available)09 ([facility] Unhold - Provider: Automatic Transfer Provider) HYDROcodone-acetaminophe n (NORCO) 5-325 mg per tablet 1 tablet (CANCELED) 1 tablet, oral, Every 6 hours PRN, 2nd line for pain, Starting on 10/02/23 at 2036, Indications: Pain 2039 (Given - Provider: Cayla Toussaint, RN) HYDROcodone-acetaminophe n (NORCO) 5-325 mg per tablet 1 tablet 1 tablet, oral, Every 4 hours PRN, 2nd line for pain, Starting on 10/03/23 at 0039, Indications: Pain 0042 (Given - Provider: Migel Oliveira)1016 (Given - Provider: Naomi Mejia, BRIA) 0055 (Given - Provider: Migel Oliveira)06 ([facility] Hold - Provider: Automatic Transfer Provider - Reason: Patient not available)09 ([facility] Unhold - Provider: Automatic Transfer Provider) hydrocortisone (ANUSOL-HC) 2.5 % rectal cream rectal, 2 times daily PRN, hemorrhoids, Starting on 10/02/23 at 2051 06 ([facility] Hold - Provider: Automatic Transfer Provider - Reason: Patient not available)09 ([facility] Unhold - Provider: Automatic Transfer Provider) HYDROmorphone (DILAUDID) injection 1 mg 1 mg, intravenous, Administer over 2 Minutes, Every 2 hours PRN, 2nd line for pain, Starting on 10/02/23 at 1641 1654 (Given - Provider: Cayla Toussaint RN)192 (Given - Provider: Cayla Toussaint RN)210 (Given - Provider: Migel Oliveira) 0304 (Given - Provider: Migel Oliveira)0524 (Given - Provider: Migel Oliveira)1121 (Given - Provider: Naomi Mejia, BRIA)1503 (Given - Provider: Naomi Mejia, RN)1724 (Given - Provider: Noami Mejia, BRIA)192 (Given - Provider: Naomi Mejia, RN)212 (Given - Provider: Migel Oliveira) 0532 (Given - Provider: Migel Oliveira)0626 (MAR Hold - Provider: Automatic Transfer Provider - Reason: Patient not available)0923 ([facility] Unhold - Provider: Automatic Transfer Provider) hyoscyamine (OSCIMIN) disintegrating tablet 125 mcg 125 mcg, oral, Every 4 hours PRN, bladder spasms, Starting on 10/02/23 at 2051, Indications: Ureteral stent discomfort 06 (JUL Hold - Provider: Automatic Transfer Provider - Reason: Patient not available)0923 ([facility] Unhold - Provider: Automatic Transfer Provider) ioversoL (OPTIRAY 350) syringe 100 mL (COMPLETED) 100 mL, intravenous, Once in imaging, contrast, Starting on 10/02/23 at 1620, For 1 dose 1633 (Contrast Given - Provider: Ashwini Lozano, RT) ondansetron (ZOFRAN) injection 4 mg(Linked Group 1) 4 mg, intravenous, Administer over 2 Minutes, Every 6 hours PRN, nausea, vomiting, if not tolerating PO, Starting on 10/02/23 at 2027, Indications: Nausea and Vomiting 2034 (Given - Provider: Cayla Toussaint RN) 0437 (See Alternative - Provider: Migel Oliveira) 0626 (MAR Hold - Provider: Automatic Transfer Provider - Reason: Patient not available)0923 ([facility] Unhold - Provider: Automatic Transfer Provider) ondansetron ODT (ZOFRAN-ODT) disintegrating tablet 4 mg(Linked Group 1) 4 mg, oral, Every 6 hours PRN, nausea, vomiting, Starting on 10/02/23 at 2027, Indications: Nausea and Vomiting 2034 (See Alternative - Provider: Cayla Toussaint RN) 0437 (Given - Provider: Migel Oliveira) 06 ([facility] Hold - Provider: Automatic Transfer Provider - Reason: Patient not available)09 ([facility] Unhold - Provider: Automatic Transfer Provider) oxyBUTYnin (DITROPAN) tablet 5 mg 5 mg, oral, 3 times daily PRN, Bladder spasms/discomfort, Starting on Tue10/02/23 at 2037, Indications: Ureteral stent discomfort 06 ([facility] Hold - Provider: Automatic Transfer Provider - Reason: Patient not available)09 ([facility] Unhold - Provider: Automatic Transfer Provider) oxyCODONE (ROXICODONE) tablet 5 mg (CANCELED) 5 mg, oral, As needed, 1st line for pain, Starting on Tue10/04/23 at 0754, For 2 doses, Phase I, 1st ORAL choice for pain, when the patient is able to tolerate PO medications. May repeat in 1 hour if pain is uncontrolled or increasing after 1st dose., Indications: Pain 0840 (Given - Provider: Taryn Izquierdo RN) perflutren protein-a (OPTISON) 3 mL in sodium chloride 0.9% 8 mL syringe (COMPLETED) 1-8 mL, intravenous, Once in imaging, contrast, Starting on Tue10/03/23 at 1605, For 1 dose, Intra-Procedure (CV) 1605 (Contrast Given - Provider: Anabel Pérez [facility] - Comment: Anabel administered) polyethylene glycol (MIRALAX) packet 17 g 17 g, oral, Daily PRN, constipation, Starting on Tue10/02/23 at 2052, Indications: constipation 06 ([facility] Hold - Provider: Automatic Transfer Provider - Reason: Patient not available)922 ([facility] Unhold - Provider: Automatic Transfer Provider) prochlorperazine (COMPAZINE) injection 5 mg 5 mg, intravenous, Administer over 2 Minutes, Every 6 hours PRN, nausea, vomiting, 2nd line, Starting on Tue10/03/23 at 0755 0917 (Given - Provider: Naomi Mejia RN) 06 ([facility] Hold - Provider: Automatic Transfer Provider - Reason: Patient not available)09 ([facility] Unhold - Provider: Automatic Transfer Provider) ramelteon (ROZEREM) tablet 8 mg 8 mg, oral, Nightly PRN, sleep, Starting on Tue10/02/23 at 2051, Indications: Sleep-Onset Insomnia 2106 (Given - Provider: Migel Oliveira) 2051 (Given - Provider: Migel Oliveira) 06 ([facility] Hold - Provider: Automatic Transfer Provider - Reason: Patient not available)09 ([facility] Unhold - Provider: Automatic Transfer Provider) sodium chloride 0.9% flush 0.5-20 mL 0.5-20 mL, intra-catheter, As needed, line care, Starting on Tue10/02/23 at 2051, Flush volume based on line type and size. Flush before and after each use. 06 (JUL Hold - Provider: Automatic Transfer Provider - Reason: Patient not available)09 ([facility] Unhold - Provider: Automatic Transfer Provider) sodium chloride 0.9% irrigation (CANCELED) As needed, Starting on Tue10/04/23 at 735, Intra-Op 0735 (Given - Provider: Otoniel Landa MD - Comment: PRN for cystoscope)0736 (Given - Provider: Otoniel Landa MD - Comment: PRn on sterile field) Linked Groups Order Group 1: ondansetron ODT (ZOFRAN-ODT) disintegrating tablet 4 mgJump to med 4 mg, oral, Every 6 hours PRN, nausea, vomiting, Starting on Tue10/02/23 at 2027, Indications: Nausea and Vomiting Or ondansetron (ZOFRAN) injection 4 mgJump to med 4 mg, intravenous, Administer over 2 Minutes, Every 6 hours PRN, nausea, vomiting, if not tolerating PO, Starting on Tue10/02/23 at 2027, Indications: Nausea and Vomiting documented in this encounter Orders Medications Ordered That Gerardo ht Not Have Been Administered Count Last Ordered Date First Ordered Date albuterol 2.5 mg /3 mL (0.08 3 %) nebulizer solution 2.5 mg 1 10/04/2023 dextrose (D10W) 10% bolus 250 mL 2 10/04/19 dextrose (GLUTOSE) 40 % gel 15 g 10/04/19 diphenhydrAMINE (BENADRYL) 5 0 mg/mL injection 12.5 mg 1 10/04/2023 fentaNYL (SUBLIMAZE) preserv ative free injection 25 mcg 10/04/2023 fentaNYL (SUBLIMAZE) preserv ative free injection 50 mcg 1 10/04/2023 glucagon injection 1 mg 1 10/04/2023 haloperidol (HALDOL) injection 1 mg 1 10/03 HYDROmorphone (DILAUDID) injection 0.2 mg 1 10/04/2023 HYDROmorphone (DILAUDID) injection 0.4 mg 1 10/04/2023 insulin lispro (HumaLOG, ADM ELOG) 100 unit/mL injection 0-5 Units 1 10/04/2023 labetaloL (NORMODYNE,TRANDAT E) injection 5 mg 1 10/04/2023 lidocaine (PF) (XYLOCAINE) 1 0 mg/mL (1 %) preservative free injection 2-10 mg 1 10/04/2023 meperidine (DEMEROL) preserv ative free injection 12.5 mg 1 10/04/2023 naloxone (NARCAN) 0.4 mg/mL injection 0.04-0.4 mg 1 10/04/2023 ondansetron (ZOFRAN) injection 4 mg 1 10/03 racepinephrine (ASTHMANEFRIN ) 2.25 % nebulizer solution 0.5 mL 1 10/04/2023 sodium chloride 0.9% flush 0.5-20 mL 2 11/202310/02/2023 sodium chloride 0.9% irrigation 1 capsaicin (ZOSTRIX) 0.025 % cream 1 Application 1 10/02/2023 Carrier Fluids for Secondary Infusion - 0.9% Sodium Chloride 1 10/02/2023 cefTRIAXone (ROCEPHIN) 1,000 mg/10 mL in sterile water (premix) 1,000 mg 1 10/02/2023 dicyclomine (BENTYL) capsule 20 mg 1 2023 hydrocortisone (ANUSOL-HC) 2 .5 % rectal cream 1 10/02/2023 hyoscyamine (OSCIMIN) disint egrating tablet 125 mcg 1 10/02/2023 oxyBUTYnin (DITROPAN) tablet 5 mg 1 024 polyethylene glycol (MIRALAX) packet 17 g 1 10/02/2023 Nursing Count Last Ordered Date First Orde red Date BLADDER SCAN 1 10/02/2023 CAPNOGRAPHY MONITORING 1 10/02/2023 INSERT EMERSON CATHETER 1 10/02/2023 TELEMETRY MONITORING 1 10/02/2023 WEIGH PATIENT 1 10/02/2023 Consult Count Last Ordered Date First Orde red Date IP CONSULT TO NUTRITION SERVICES 1 10/03/19 24 IV Count Last Ordered Date First Orde red Date SALINE LOCK IV 1 10/02/2023 Admission Count Last Ordered Date First Orde red Date ADMIT TO INPATIENT 1 10/02/2023 Discharge Count Last Ordered Date First Orde red Date DISCHARGE PATIENT 1 10/04/2023 documented in this encounter Care Teams Knurling Machine Operator Relationship Specialty Start Date End Date Carl Strickland MD [address] [facility] [address] [place] [address] PCP - General Internal Medicine 06/06/23 Leo Manzano MD [address] [facility] [id number] [place] [address] Surgeon Vascular Surgery 05/16/23 documented as of this encounter
--- OUTSIDE RECORDS SUMMARY | 2024-05-30 05:35 | XMS_ITS | Encounter Summary ---
Author Organization [facility] Address [address] [place] [address] Phone Care Team Providers Care Advisor Consultant Name Role Phone Leo Manzano MD Unavailable [phone] Carl Strickland MD Primary Care Provider Encounter Details Date Type Department Care Team (Late st Contact Info) Description 01/02/2024 Telephone [facility] Cardiology [address] [facility] Advanced Medicine 8th [place] [address] [place] [address] Joaquín Aabrca MD [address] [facility] [address] [place] [address] Social History Tobacco Use Types Packs/Day Years Used Date Smoking Tobacco: Never Smokeless Tobacco: Never Alcohol Use Standard Drinks/Week Comments Not Currently 0 (1 standard drink = 0.6 oz pur e alcohol) [facility] Utilities Answer Date Recorded In the past 12 months has [employer] electric, gas, oil, or water company threatened [...] declined 10/02/2023 How often do you attend gnosticist or mosque serv ices? Patient declined 10/02/2023 Do you belong to any clubs o r organizations such as gnosticist groups, unions, fraternal or athletic groups, or [...] place to sleep or slept in a fci (including now)? Patient declined 10/02/2023 Personal Safety Answer Date Recorded Have you ever been in or are you currently in a harmful physical or emotional relationship or is someone making you feel afraid or unsafe? Denies 10/04/2023 Sex and Gender Information Value Date Recorded Sex Assigned at Not on file Legal Sex Male 3:42 AM TOE TRIMMER Gender Identity Not on file Sexual Orientation Straight 06/12/2023 11 :43 PM TOE TRIMMER documented as of this encounter Miscellaneous Notes * Telephone Encounter - Mariah Case RN - 01/02/2024 1:14 PM CDT I lmor for pt at [phone], that we are running behind and will be calling shortly. * Telephone Encounter - Elisabeth Eid - 01/02/2024 1:12 PM CDT Rima Pt calling, he had 12:30 phone appt and no one called. documented in this encounter Plan of Treatment Not on file documented as of this encounter Goals Goal Patient Goal Type Associated Problems Recent Progress Patient-Stated? Author CCM Chronic Pain Care Plan Chronic Care Management No change(05/16 2:51 PM TOE TRIMMER) No Rita Landa, RN Note: Problem: Chronic Pain Goals: 1. Minimize further functional decline 2. Maximize quality of life 3. Control pain Strategies: - Activity/exercise program recommendation - Conservative stepwise pain medicine strategy with multi-disciplinary approach - Recommend healthy lifestyle strategies and compensatory methods as needed documented as of this encounter Visit Diagnoses Not on filedocumented in this encounter Care Teams Advisor Consultant Relationship Specialty Start Date End Date Carl Strickland MD [address] [id number] PCP - General Internal Medicine 06/06/23 Leo Manzano MD [address] [facility] [id number] [place] [address] Surgeon Vascular Surgery 05/16/23 documented as of this encounter
--- OUTSIDE RECORDS SUMMARY | 2024-05-30 05:35 | XMS_ITS | Encounter Summary ---
Author Organization [facility] Address [address] [place] [address] Phone Care Team Providers Care Medical Interpreter Name Role Phone Leo Manzano MD Unavailable [phone] Carl Strickland MD Primary Care Provider Encounter Details Date Type Department Care Team (Late st Contact Info) Description 11/22/2023 Orders Only [facility] Cardiology [address] [facility] Advanced Medicine 8th [place] [address] [place] [address] Mariah Case RN Social History Tobacco Use Types Packs/Day Years Used Date Smoking Tobacco: Never Smokeless Tobacco: Never Alcohol Use Standard Drinks/Week Comments Not Currently 0 (1 standard drink = 0.6 oz pur e alcohol) [facility] Utilities Answer Date Recorded In the past 12 months has [employer] electric, gas, oil, or water company threatened [...] declined 10/02/2023 How often do you attend sabianist or pentecostal serv ices? Patient declined 10/02/2023 Do you belong to any clubs o r organizations such as sabianist groups, unions, fraternal or athletic groups, or school groups? Patient declined 10/02/2023 How often do you attend meet ings of the clubs or organizations you belong to? Patient declined 10/02/2023 Are you , , di vorced, , never , or living with a partner? Patient declined 10/02/2023 AUDIT-C Answer Date Recorded Q1: How often do you have a drink containing alcohol? Never 11/14/2023 Q2: How many drinks containi ng alcohol do you have on a typical day when you are drinking? Patient does not drink Q3: How often do you have si x or more drinks on one occasion? Never 11/14/2023 Overall Financial Resource Strain (CARDIA) Answe r [...] place to sleep or slept in a long term (including now)? Patient declined 10/02/2023 Personal Safety Answer Date Recorded Have you ever been in or are you currently in a harmful physical or emotional relationship or is someone making you feel afraid or unsafe? 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 Author CCM Chronic Pain Care Plan Chronic Care Management No change(05/16 2:51 PM CONDENSER CLEANER) No Rtia Landa RN Note: Problem: Chronic Pain Goals: 1. Minimize further functional decline 2. Maximize quality of life 3. Control pain Strategies: - Activity/exercise program recommendation - Conservative stepwise pain medicine strategy with multi-disciplinary approach - Recommend healthy lifestyle strategies and compensatory methods as needed documented as of this encounter Visit Diagnoses Not on filedocumented in this encounter Care Teams Medical Interpreter Relationship Specialty Start Date End Date Carl Strickland MD [address] [facility] [address] [place] [address] PCP - General Internal Medicine 06/06/23 Leo Manzano MD [address] [facility] [id number] [place] [address] Surgeon Vascular Surgery 05/16/23 documented as of this encounter
--- OUTSIDE RECORDS SUMMARY | 2024-05-30 05:35 | XMS_ITS | Encounter Summary ---
Author Organization [facility] Address [address] [place] [address] Phone Care Team Providers Care Catalyst Operator Chief Name Role Phone Leo Manzano MD Unavailable [phone] Carl Strickland MD Primary Care Provider Encounter Details Date Type Department Care Team (Late st Contact Info) Description 10/14/2023 Telephone [facility] Surgery [address] [place] [address] Social History Tobacco Use Types Packs/Day Years Used Date Smoking Tobacco: Never Smokeless Tobacco: Never Alcohol Use Standard Drinks/Week Comments Not Currently 0 (1 standard drink = 0.6 oz pur e alcohol) [facility] Utilities Answer Date Recorded In the past 12 months has [employer], gas, oil, or water [employer] threatened to shut off services in your home? Patient declined 10/02/2023 Social Connection and Isolation Panel [NHANES] A nswer Date Recorded In a typical week, how many times do you talk on the phone with family, friends, or neighbors? Patient declined 10/02/2023 How often do you get togethe r with friends or relatives? Patient declined 10/02/2023 How often do you attend taoist or druze serv ices? Patient declined 10/02/2023 Do you belong to any clubs o r organizations such as taoist groups, unions, fraternal or athletic groups, or [...] place to sleep or slept in a mcc (including now)? Patient declined 10/02/2023 Personal Safety Answer Date Recorded Have you ever been in or are you currently in a harmful physical or emotional relationship or is someone making you feel afraid or unsafe? 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 As far as the blood in urine Mr Villa stated everything was fine. * Telephone Encounter - [address] - 10/14/2023 3:34 PM CDT Date: 10/14/2023 Reason for Call: Patient's mother calling to let provider know that he has not received the 24hr urine test kit yet. She also states patient told her he still has blood in his urine. Please call patient Patient Provider: [facility] Information: Outcome/Plan: documented in this encounter Plan of Treatment Not on file documented as of this encounter Goals Goal Patient Goal Type Associated Problems Recent Progress Patient-Stated? Author CCM Chronic Pain Care Plan Chronic Care Management No change(05/16 2:51 PM BOOK JACKET COVER MACHINE OPERATOR) No Rita Landa RN Note: Problem: Chronic Pain Goals: 1. Minimize further functional decline 2. Maximize quality of life 3. Control pain Strategies: - Activity/exercise program recommendation - Conservative stepwise pain medicine strategy with multi-disciplinary approach - Recommend healthy lifestyle strategies and compensatory methods as needed documented as of this encounter Visit Diagnoses Not on filedocumented in this encounter Care Teams Catalyst Operator Chief Relationship Specialty Start Date End Date Carl Strickland MD [address] [place], [place] [id number] PCP - General Internal Medicine 06/06/23 Leo Manzano MD [id number] [place] [address] Surgeon Vascular Surgery 05/16/23 documented as of this encounter
--- OUTSIDE RECORDS SUMMARY | 2024-05-30 05:35 | XMS_ITS | Encounter Summary ---
Author Organization [facility] Address [address] [place] [address] Phone Care Team Providers Care Reports Analysis Manager Name Role Phone Leo Manzano MD Unavailable [phone] Carl Strickland MD Primary Care Provider Encounter Details Date Type Department Care Team (Late st Contact Info) Description 11/28/2023 12:30 PM CDT Office Visit [facility] Cardiology [address] [facility] 8th [place] [address] [place] [id number] Joaquín Abarca MD [address] [facility] [address] [place], [place] [id number] 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 Patient declined 10/02/2023 Do you belong to any clubs o r organizations such as voodoo groups, unions, fraternal or athletic groups, or [...] place to sleep or slept in a intermediate (including now)? Patient declined 10/02/2023 Personal Safety Answer Date Recorded Have you ever been in or are you currently in a harmful physical or emotional relationship or is someone making you feel afraid or unsafe? Denies 10/04/2023 Sex and Gender Information Value Date Recorded Sex Assigned at Not on file Legal Sex Male 3:42 AM INTERACTIVE MEDIA MARKETING STRATEGIST Gender Identity Not on file Sexual Orientation Straight 06/12/2023 11 :43 PM INTERACTIVE MEDIA MARKETING STRATEGIST documented as of this encounter Last Filed Vital Signs Vital Sign Reading Time Taken Comments Blood Pressure 113/78 11/28/2023 12:28 PM CDT Pulse 78 11/28/2023 12:28 PM CDT Temperature - - Respiratory Rate - - Oxygen Saturation 98% 11/28/2023 12:28 PM CDT Inhaled Oxygen Concentration - - Weight 97.3 kg (214 lb 9.6 oz) 11/28/2023 12:28 PM CDT Height 175.3 cm (5' 9 ) 11/28/2023 12:28 PM CDT Body Mass Index 31.69 11/28/2023 12:28 PM CDT documented in this encounter Progress Notes * Joaquín Abarca MD - 11/28/2023 12:30 PM CDT Patient Name: Eriberto Chau Provider: Joaquín Abarca MD : 1990 Date of Service: 11/28/2023 Referring: Em CHIEF COMPLAINT: Type B aortic dissection HISTORY OF PRESENT ILLNESS: 33 y.o. male with a history of type B aortic dissection. He would uncontrolled hypertension with medical nonadherence in April 2023 and experienced an acute type B aortic dissection. His course was complicated by paraplegia with spinal cord ischemia. Hehad endovascular repair and then another repair in May for malperfusion. He is followed by vascular surgery. Since I saw him last he still has chronic back pain he is working with pain Services. He has PTSD. He would pyelonephritis recently in his creatinine increased. Blood pressure has been under good control. He is compliant with his medications. No cardiac symptoms. PREVIOUS CARDIOVASCULAR PROCEDURES MEDICATIONS: Outpatient Encounter Medications as of 11/28/2023 Medication Sig Dispense Refill acetaminophen (TYLENOL) 500 mg tablet Take 2 tablets (1,000 mg total) by mouth every 6 (six) hours as needed for pain, headaches or fever amitriptyline (ELAVIL) 25 mg tablet Take 1 tablet (25 mg total) by mouth nightly (Patient taking differently: Take 2 tablets (50 mg total) by mouth nightly) 30 tablet 1 amLODIPine (NORVASC) 10 mg tablet Take 1 tablet (10 mg total) by mouth daily 30 tablet 11 aspirin 81 mg chewable tablet Take 1 tablet (81 mg total) by mouth daily 30 tablet 11 capsaicin (ZOSTRIX) 0.025 % cream Apply 1 Application topically 2 (two) times a day as needed for pain dicyclomine (BENTYL) 20 mg tablet Take 1 tablet (20 mg total) by mouth every 6 (six) hours as needed (For abdominal pain) 120 tablet 0 ergocalciferol (VITAMIN D) 50,000 unit capsule Take 1 capsule (50,000 Units total) by mouth once a week for 7 doses 7 capsule 0 gabapentin (NEURONTIN) 600 mg tablet Take 1 tablet (600 mg total) by mouth 3 (three) times a day hydrALAZINE (APRESOLINE) 50 mg tablet Take 1 tablet (50 mg total) by mouth 3 (three) times a day 90tablet 11 hydrocortisone (ANUSOL-HC) 2.5 % rectal cream Insert into the rectum 2 (two) times a day as needed for hemorrhoids 30 g 0 hyoscyamine (LEVSIN) 0.125 mg SL tablet Take 1 tablet (0.125 mg total) by mouth every 4 (four) hours as needed (Bladder spasms/discomfort) 30 tablet 3 labetaloL (NORMODYNE,TRANDATE) 200 mg tablet Take 2 tablets (400 mg total) by mouth 2 (two) times aday 360 tablet 3 lamoTRIgine (LaMICtal) 25 mg tablet Take 1 tablet (25 mg total) by mouth daily ondansetron ODT (ZOFRAN-ODT) 4 mg disintegrating tablet Take 1 tablet (4 mg total) by mouth every 8(eight) hours as needed for nausea or vomiting 10 tablet 0 oxyBUTYnin (DITROPAN) 5 mg tablet Take 1 tablet (5 mg total) by mouth 3 (three) times a day as needed (Bladder spasms/discomfort) 30 tablet 3 oxyCODONE (ROXICODONE) 5 mg immediate release tablet Take 1 tablet (5 mg total) by mouth every 4 (four) hours as needed for pain 10 tablet 0 pregabalin (LYRICA) 100 mg capsule Take 1 capsule (100 mg total) by mouth 2 (two) times a day 60 capsule 5 QUEtiapine (SEROquel) 50 mg tablet Take 1 tablet (50 mg total) by mouth nightly 30 tablet 1 senna-docusate (PERICOLACE) 8.6-50 mg Take 2 tablets by mouth 2 (two) times a day To prevent constipation 40 tablet 0 tamsulosin (FLOMAX) 0.4 mg extended release capsule TAKE 1 CAPSULE BY MOUTH DAILY *TAKE WHILE STENTIS IN PLACE AND FOR THREE DAYS AFTER STENT REMOVAL No facility-administered encounter medications on file as of 11/28/2023. REVIEW OF SYSTEMS: General: No fever, chills, malaise or fatigue Eyes: No alterations in visual acuity Pulmonary: No dyspnea, cough or hemoptysis Cardiac: No chest pain, orthopnea, PND or palpitations GI: No nausea, vomiting, diarrhea or constipation Musculoskeletal: Chronic pain syndrome. Heme: no excessive bleeding or bruising All other systems reviewed and are negative PHYSICAL EXAM: BP 113/78 Pulse 78 Ht 175.3 cm (5' 9 ) Wt 97.3 kg (214 lb 9.6 oz) SpO2 98% BMI 31.69 kg/m?? General: Well appearing, No pain or distress, well nourished Eyes: BERNARDO/EOMI, Conjuctiva anicteric Neck: Supple Respiratory: Clear to ausculation bilaterally; no wheezing/rales/rhonchi; respirations unlabored Cardiovascular: RRR, normal S1 and S2. No S3 or S4. No murmurs or rubs. Carotid upstrokes brisk bilaterally and without bruits. Normal PMI Gastrointestinal: soft, non-tender abdomen, no masses palpable, no HSM, abdominal aortic pulsation normal Extremities: no cyanosis or clubbing or edema Musculoskeletal: no obvious joint deformities Skin: no obvious rash or bruising Psychiatric: normal affect Neurologic: awake/alert, I reviewed his laboratories. Last creatinine level had increased to 1.5. We will repeat a BNP today. Blood pressure obtained by me was 110/75 in the left arm and 130 over 75 in the right arm. ASSESSMENT & PLAN: 1. 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HCC) 2. Primary hypertension - Basic metabolic panel; Future Blood pressure reasonably well controlled on current therapy. He will continue current medicines and follow up the blood pressure. We will re-evaluate in 1 year. He will have routine imaging of his aorta by the vascular surgeon scheduled for later this year in follow-up of the dissection and endovascular repair. He will continue work with his pain service for quality of life. Joaquín Abarca MD This note was written using a voice recognition system hardware device. Please note there may be variance in spelling, grammar, and syntax because of the voice recognition system hardware. Not every sentence has been reviewed in its entirety and if there are any concerns about the verbage above please contact Dr. Abarca directly at [phone]. documented in this encounter Miscellaneous Notes * Addendum Note - Mariah Sanchez RN - 11/28/2023 12:30 PM CDTAddended by: MARIAH SANCHEZ on: 12/06/2023 03:09 PM Modules accepted: Orders documented in this encounter Plan of Treatment Not on file documented as of this encounter Goals Goal Patient Goal Type Associated Problems Recent Progress Patient-Stated? Author CCM Chronic Pain Care Plan Chronic Care Management No change(05/16 2:51 PM INTERACTIVE MEDIA MARKETING STRATEGIST) No Rita Landa, BRIA Note: Problem: Chronic Pain Goals: 1. Minimize further functional decline 2. Maximize quality of life 3. Control pain Strategies: - Activity/exercise program recommendation - Conservative stepwise pain medicine strategy with multi-disciplinary approach - Recommend healthy lifestyle strategies and compensatory methods as needed documented as of this encounter Visit Diagnoses Diagnosis 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HCC)- Primary Primary hypertension Unspecified essential hypertension documented in this encounter Orders Lab Orders Without Results Count Last Ordered D ate First Ordered Date BASIC METABOLIC PANEL 1 11/28/2023 documented in this encounter Care Teams Reports Analysis Manager Relationship Specialty Start Date End Date Carl Strickland MD [address] [facility] [address] [place] [address] PCP - General Internal Medicine 06/06/23 Leo Manzano MD [address] [facility] [id number] [place] [address] Surgeon Vascular Surgery 05/16/23 documented as of this encounter
--- OUTSIDE RECORDS SUMMARY | 2024-05-30 05:35 | XMS_ITS | Encounter Summary ---
Author Organization [facility] Healthcare Address [address] [place] [address] Care Team Providers Care Legal Transcriber Name Role Phone Leo Manzano MD Unavailable [phone] Carl Strickland MD Primary Care Provider Reason for Referral * Diagnostic Imaging (Routine) - Pending Review Specialty Diagnoses / Procedures Referred By Contac t Referred To Contact Diagnoses Sacroiliitis (HCC) Procedures Imaging SI Joint Injection Bilateral (93171) Adrianne Adams MD PhD [address] [place] [address] Phone: tel: fax: [address] [address] Referral ID Status Reason Start Date Expiration Date V isits Requested Visits Authorized [id number] Pending Review 05/16/2024 06/15/2025 1 1 H TANK OPERATOR Reason for Visit * Reason Comments Back Pain Encounter Details Date Type Department Care Team (Latest Contact Info) Description 05/16/2024 2:39 PM WEIGH TANK OPERATOR - 05/16/2024 11:59 PM WEIGH TANK OPERATOR Hospital Encounter [facility] [address] [place] [address] Advanced [facility] [address] [place] [id number] Adrianne Adams MD PhD [address] [place] [address] Sacroiliitis (HCC) (Primary Dx) Discharge Disposition: Discharge to home or self care Social History Tobacco Use Types Packs/Day Years Used Date Smoking Tobacco: Never Smokeless Tobacco: Never Alcohol Use Standard Drinks/Week Comments Not Currently 0 (1 standard drink = 0.6 oz pur e alcohol) [facility] Utilities Answer Date Recorded In the past 12 months has th e electric, gas, oil, or water [place] threatened to shut off services in your home? Patient declined 10/02/2023 Social Connection and Isolation Panel [NHANES] A nswer Date Recorded In a typical week, how many times do you talk on the phone with family, friends, or neighbors? Patient declined 10/02/2023 How often do you get togethe r with friends or relatives? Patient declined 10/02/2023 How often do you attend sabianist or restorationist serv ices? Patient declined 10/02/2023 Do you [...] place to sleep or slept in a detention (including now)? Patient declined 10/02/2023 Personal Safety Answer Date Recorded Have you ever been in or are you currently in a harmful physical or emotional relationship or is someone making you feel afraid or unsafe? Denies 10/04/2023 Sex and Gender Information Value Date Recorded Sex Assigned at Not on file Legal Sex Male 3:42 AM WEIGH TANK OPERATOR Gender Identity Not on file Sexual Orientation Straight 06/12/2023 11 :43 PM WEIGH TANK OPERATOR documented as of this encounter Last Filed Vital Signs Vital Sign Reading Time Taken Comments Blood Pressure 138/83 05/16/2024 2:50 PM WEIGH TANK OPERATOR Pulse 75 05/16/2024 2:50 PM WEIGH TANK OPERATOR Temperature 36.5 ??C (97.7 ??F) 05/16/2024 2:50 PM CS T Respiratory Rate 18 05/16/2024 2:50 PM WEIGH TANK OPERATOR Oxygen Saturation 99% 05/16/2024 2:50 PM WEIGH TANK OPERATOR Inhaled Oxygen Concentration - - Weight - - Height - - Body Mass Index - - documented in this encounter Discharge Instructions * Patient Instructions* Radha Mooney RN - 05/16/2024 2:45 PM WEIGH TANK OPERATOR PAIN MANAGEMENT CENTER ([facility]) DISCHARGE INSTRUCTIONS MEDICATIONS: no changes Today's visit: follow up with Dr. Adams ACTIVITY: [x] Resume normal activity [] See [facility] Post Discharge Procedure Information Sheet FOLLOW UP APPOINTMENTS: [x] Procedure at your next visit : bilateral sacroiliac joint injection INSTRUCTIONS before your next procedure: [x] See [facility] Pre-Procedure Information Sheet [] Do not eat or drink for six (6) hours before the time/date of the procedure. [] Inquire with your prescribing provider if ok to hold blood thinner for ( ) days before procedure. [] Blood work required 2 hours before procedure: [x] Terminal Supervisor needed for next procedure [x] Pre Procedure instructions will be sent through [employer] or by phone two working days prior to procedure. *Need help with [employer]? Call [phone]. Patient provided information and repeated back with understanding. If you need to reach us: For any questions about your procedure, please call the Pain Management Center [phone] (M-F) (8am-4pm) If you need urgent attention after 5 pm and weekends: Call the [facility] Field Service Engineer at [phone] and ask for the Pain Service doctor marketing operations consultant. SACROILIAC JOINT INJECTION PAIN MANAGEMENT CENTER PATIENT [...] x-ray table while you are awake. A ground water technician will be taking x-rays. A nurse [...] and ask to speak to a nurse. H TANK OPERATOR documented in this encounter Medications at Time [...] Notes * Adrianne Adams MD PhD - 05/16/2024 2:45 PM CST Pain Management Follow Up Note Patient Name: Eriberto Chau : 1990 Today's Date: 05/16/2024 PCP: Carl Strickland MD Referring: Venu Unknown HPI: Mr. Eriberto Chau is a [...] interventional therapies with some degree of success: 02/28/24: Bilateral SIJ injection >50% pain relief, benefit ongoing INTERVAL HISTORY (05/16/2024) Patient returns to the clinic for a f/u visit for ongoing low back pain. Patient is scheduled for follow up Today. Patient underwent Bilateral SIJ injection at the last visit. Patient reports >50% pain relief with significant functional improvement and ADLs. Today, the pain is described as noted below: Pain Assessment Pain Score: 6 Pain Location: Back (Lumbar) Pain Radiating Towards: sometimes b/l legs Pain Descriptors: Aching Pain Frequency: Constant/continuous Pain Onset: Ongoing Clinical Progression: Not changed He denies any changes in the characteristics [...] tablet (25 mg total) by mouth nightly lamoTRIgine (LaMICtal) 25 mg tablet Take 1 tablet (25 mg total) by mouth daily lurasidone (LATUDA) 20 mg tablet Take 1 tablet every day by oral route with meal(s). meloxicam (MOBIC) 7.5 mg tablet Take 1 tablet (7.5 mg total) by mouth daily pregabalin (LYRICA) 100 mg capsule Take 1 capsule (100 mg total) by mouth 2 (two) times a day QUEtiapine (SEROquel) 50 mg tablet Take 1 tablet (50 mg total) by mouth nightly Results Allergies Allergen Reactions Lisinopril Angioedema Amoxicillin [...] Positive for back pain. Physical Exam Vitals: 05/16/24 1450 BP: 138/83 Pulse: 75 Resp: 18 Temp: 97.7 ??F (36.5 ??C) SpO2: 99% There is no height or weight on file to calculate BMI. Physical Exam: CONSTITUTIONAL: general appearance normal Nutrition [...] palpation of spinal processes. Paraspinal muscle tenderness. [id number] SPINE: Tenderness at the lumbosacral region. Positive [...] loading positive bilaterally SI joint tenderness, TANJA, Canterbury's, Compression tests positive bilaterally Hip tenderness: negative [...] stenosis. IMPRESSION: Unremarkable MRI lumbar spine. Assessment 1. Sacroiliitis (HCC) The above note documents my personal evaluation of this patient. In addition, I have reviewed and confirmed with the patient and nurse the supportive information documented in today's scanned PatientHealth Questionnaire and Office Note. There is a significant impact on the patient's quality of life and function, and the pain has been present for at least 3 months. The patient has failed to improve with noninvasive conservative care, such as rest, multimodal pharmacotherapy, injections, and other adjunctive treatment methods. The patient has completed at least 6 weeks of active rehabilitation therapy program (including but not limited to physical therapy and/or manual therapy, and/or chiropractic therapy, and/or home exercise program - HEP) for this chief complaint within the last 6 months. Patient reports ongoing dailyparticipation in an active lifestyle and HEP. This patient's pain is severe and results in a significant degree of functional disability and impairment in activities of daily living, and/or work duties and/or social events. Plan 1. Intervention: Given the signs and symptoms of sacroiliitis bilateral, we will proceed with bilateral SIJ injection at the next visit Risks of the procedure were discussed including but not limited to: post- procedure pain, infection,bleeding, temporary or permanent damage to surrounding structures, reaction to the injectate (if any), hardware misplacement (if any), seizures, paralysis and/or . Patient reports understanding and consent to proceed. I discussed caudal SCOOBY but given his bad experience with lumbar drain, patient deferred at this time. Justification for interventional pain treatment: Patient with constant, at least moderate average pain severity affecting activities of daily living, function and quality of life as demonstrated by collected patient-reported outcomes (PROs) questionnaires. Patient has exhausted conservative methods as noted above. Interventional pain treatment aimed to offer pain relief to facilitate continuation and maintenanceof active lifestyle, home exercise therapy (HEP) program and active physical therapy/rehab program. 2. Medications: a. Opioids: Opioids are not indicated at this current time. b. Adjuvants: I reviewed the current therapy with the patient today. Patient to continue with the current therapy. 3. Imaging: No further imaging needed at this current time 4. Referral: No referrals needed at this current time. and Encourage Home Exercise Program - detailed discussion regarding the importance of consistent use of optimized therapeutic and conditioning exercise programs. 5. Follow-up: In 1 month for the above procedure. Adrianne Adams MD PhD Clinical Fellow, Pain Management Department of Anesthesiology [facility] 05/16/24 H TANK OPERATOR * Radha Mooney RN - 05/16/2024 2:45 PM CST Level 3 Escorted patient to exam room. Obtained vital signs. Reviewed patient's allergies and current medications. Obtained and verified patient's detailed medical/surgical history. Confirmed the reason for visit with the patient. Obtained the following screening assessments: [x] Modified Oswestry Low Back Pain Questionnaire [] PMC Intake Questionnaire [x] PMC Follow up Questionnaire [] Fall Risk Assessment (More, Tiffany Hernandez, Leona) [] Depression/Anxiety Assessment (GAD7, PHQ-9, [place] Suicide, Harry Depression) [] Disability Scale [] CAGE [] SOAPP-R Additional tasks included: [] Random medication adherence check (pill verification by two nurses) [] Work/school note written [] Wound/skin check/dressing change [] Pain assessment for more than one site [] Coordination of a specialty referral or imaging study (stat MRI for same day) [] Anticoagulant therapy coordination on day of visit [] Monitoring or assistance in patient physical exam or assessment Vital Signs Temp: 97.7 ??F (36.5 ??C) Pulse: 75 Resp: 18 BP: 138/83 SpO2: 99 % Post-visit transport confirmed with the patient. Total time spent for patient care, education, and care coordination was approximately 21-30 minutes. H TANK OPERATOR documented in this encounter Plan of Treatment Scheduled Orders Name Type Priority Associated Diagnoses Orde r Schedule Imaging SI Joint Injection Bilateral (24088) Imaging Schedule Routine, Read Routine (OP Routine) Sacroiliitis (HCC) Expected: 05/16/2024, Expires: 05/16/2025 documented as of this encounter Goals Goal Patient Goal Type Associated Problems Recent Progress Patient-Stated? Author CCM Chronic Pain Care Plan Chronic Care Management No change(05/16 2:51 PM WEIGH TANK OPERATOR) No Rita Landa RN Note: Problem: Chronic Pain Goals: 1. Minimize further functional decline 2. Maximize quality of life 3. Control pain Strategies: - Activity/exercise program recommendation - Conservative stepwise pain medicine strategy with multi-disciplinary approach - Recommend healthy lifestyle strategies and compensatory methods as needed documented as of this encounter Visit Diagnoses Diagnosis Sacroiliitis (HCC)- Primary Sacroiliitis, not elsewhere classified documented in this encounter Historical Medications * This list may reflect changes made after this encounter. pravastatin (PRAVACHOL) 10 mg tablet 1 tablet (10 mg total) 05/07/2024 added in this encounter Care Teams Legal Transcriber Relationship Specialty Start Date End Date Carl Strickland MD [address] [facility] [address] [place] [address] PCP - General Internal Medicine 06/06/23 Leo Manzano MD [id number] [place] [address] Surgeon Vascular Surgery 05/16/23 documented as of this encounter
--- OUTSIDE RECORDS SUMMARY | 2024-05-30 05:35 | XMS_ITS | Encounter Summary ---
Author Organization [facility] Address [address] [place] [address] Phone Care Team Providers Care Geospatial Information Scientist Name Role Phone Leo Manzano MD Unavailable [phone] Carl Strickland MD Primary Care Provider Reason for Visit * Consultation (Routine) - Closed Specialty Diagnoses / Procedures Referred By Fernando alan Referred To Contact Nephrology Diagnoses Renal insufficiency Carl Strickland MD [address] [facility] [address] [place] [address] Phone: tel: fax: [facility] (All Locations) Referral ID Status Reason Start Date Expiration Date V isits Requested Visits Authorized [id number] Closed Specialty Services Required 10/07/2023 11/05/2024 1 1 Encounter Details Date Type Department Care Team (Late st Contact Info) Description 11/02/2023 1:00 PM CDT Office Visit [facility] Nephrology [address] [facility] 5th [place] [address] [place] [address] ANGI (acute kidney injury) (HCC) (Primary Dx); Renal insufficiency; Primary hypertension; Ureteral calculi Social History Tobacco Use Types Packs/Day Years Used Date Smoking Tobacco: Never Smokeless Tobacco: Never Alcohol Use Standard Drinks/Week Comments Not Currently 0 (1 standard drink = 0.6 oz pur e alcohol) [facility] Utilities Answer Date Recorded In the [...] declined 10/02/2023 How often do you attend gnosticism or confucianist serv ices? Patient declined 10/02/2023 Do you [...] place to sleep or slept in a halfway (including now)? Patient declined 10/02/2023 Personal Safety Answer Date Recorded Have you ever been in or are you currently in a harmful physical or emotional relationship or is someone making you feel afraid or unsafe? 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 Gender Identity Not on file Sexual Orientation Straight 06/12/2023 11 :43 PM HEALTH AND PHYSICAL EDUCATION PROFESSOR documented as of this encounter Last Filed Vital Signs Vital Sign Reading Time Taken Comments Blood Pressure 138/76 11/02/2023 12:55 PM CDT Pulse 77 11/02/2023 12:55 PM CDT Temperature 36.8 ??C (98.2 ??F) 11/02/2023 12:55 PM C DT Respiratory Rate - - Oxygen Saturation - - Inhaled Oxygen Concentration - - Weight 95.7 kg (211 lb) 11/02/2023 12:55 PM CDT Height 175.3 cm (5' 9 ) 11/02/2023 12:55 PM CDT Body Mass Index 31.16 11/02/2023 12:55 PM CDT documented in this encounter Progress Notes * Miguel Dominguez MD - 11/02/2023 1:00 PM CDT PATIENT NAME: Eriberto Chau : 1990 11/04/2023 CHIEF COMPLAINT: CKD PROBLEM LIST: Patient Active Problem List Diagnosis Dissection of aorta, unspecified portion of aorta (HCC) Dissection of thoracoabdominal aorta (CMS/HCC) (HCC) Epistaxis Pneumonia HTN (hypertension) Urinary retention Dissection of abdominal aorta (CMS/HCC) (HCC) Moderate malnutrition (CMS/HCC) (HCC) Polysubstance abuse (CMS/HCC) (HCC) Infrarenal abdominal aortic aneurysm, without rupture (HCC) Other chronic pain Pseudoaneurysm following procedure (CMS/HCC) (HCC) Ureteral stone Abdominal pain PFO (patent foramen ovale) Back pain at L4-L5 level 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HCC) Ureteral calculi Pyelonephritis Hypokalemia ANGI (acute kidney injury) (HCC) Syncope Weight loss HISTORY OF PRESENT ILLNESS: I reviewed Mr. Chau today regarding his kidney disease. He has had a long history of cardiovascular disease, likely explaining his creatinine of 1.5. He is not diabetic, and has a history of kidney stones. His diet is very high in sodium and protein, he is not interested in changing this. He has been smoking marijuana since age 14. PAST MEDICAL HISTORY: Past Medical History: Diagnosis Date Abdominal pain Anxiety Aortic dissection (HCC) Depression Hypertension Kidney stones Memory loss PAST SURGICAL HISTORY: Past Surgical History: Procedure Laterality Date ABDOMINAL AORTIC ANEURYSM REPAIR ALLERGIES: Allergies Allergen Reactions Lisinopril Angioedema Amoxicillin Hives CURRENT MEDICATIONS: Current Outpatient Medications Medication Sig Dispense Refill acetaminophen (TYLENOL) 500 mg tablet Take 2 tablets (1,000 mg total) by mouth every 6 (six) hours as needed for pain, headaches or fever amitriptyline (ELAVIL) 25 mg tablet Take 1 tablet (25 mg total) by mouth nightly 30 tablet 1 amLODIPine (NORVASC) 10 mg [...] needed (For abdominal pain) 120 tablet 0 gabapentin (NEURONTIN) 600 mg tablet Take [...] total) by mouth 2 (two) times aday 120 tablet 1 ondansetron ODT (ZOFRAN-ODT) 4 mg disintegrating tablet [...] for pain 10 tablet 0 pregabalin (LYRICA) 75 mg capsule Take 1 capsule (75 mg total) by mouth 2 (two) times a day 60 capsule 5 QUEtiapine (SEROquel) 50 mg tablet Take 1 tablet (50 mg total) by mouth nightly 30 tablet 1 senna-docusate (PERICOLACE) 8.6-50 mg Take 2 tablets by mouth 2 (two) times a day To prevent constipation 40 tablet 0 ergocalciferol (VITAMIN D) 50,000 unit capsule Take 1 capsule (50,000 Units total) by mouth once a week for 7 doses 7 capsule 0 No current facility-administered medications for this visit. FAMILY HISTORY: Family History Problem Relation Age of Onset Depression Mother Anxiety disorder Mother Depression Father Anxiety disorder Sister Depression Sister Depression Brother Anxiety disorder Brother SOCIAL HISTORY: Social History Tobacco Use Smoking status: Never Smokeless tobacco: Never Substance and Sexual Activity Drug use: Not Currently Types: Marijuana Sexual activity: Defer Alcohol Use: Not At Risk (09/27/2023) AUDIT-C Frequency of Alcohol Consumption: Never Average Number of Drinks: Patient does not drink Frequency of Binge Drinking: Never REVIEW OF SYSTEMS: Review of systems per HPI and otherwise all other systems are negative PHYSICAL EXAM: Vitals BP 138/76 Pulse 77 Temp 36.8 ??C (98.2 ??F) Ht 175.3 cm (5' 9 ) Wt 95.7 kg (211 lb) BMI 31.16 kg/m?? GEN: A very pleasant gentleman in no apparent distress HENT: Mucus membranes pink and moist. Oropharynx clear. EYES: sclera anicteric CVS: S1 S2 normal, no murmurs, rub or gallop. No LE edema. LUNGS: clear to auscultation bilaterally ABD: Soft, non-tender, non-distended, bowel sounds normal. No masses. SKIN: No rash PLASTIC WORKER: Alert Ox3. No focal motor deficits PSYCH: Pleasant, cooperative, in no apparent distress. MSK: No joint swelling or tenderness LABS: Sodium Date Value Ref Range Status 10/04/2023 140 135 - 145 mmol/L Final 10/03/2023 134 (L) 135 - 145 mmol/L Final 10/02/2023 138 135 - 145 mmol/L Final Potassium, pl Date Value Ref Range Status 10/04/2023 3.6 3.3 - 4.9 mmol/L Final 10/03/2023 3.3 3.3 - 4.9 mmol/L Final 10/02/2023 3.1 (L) 3.3 - 4.9 mmol/L Final CO2 Date Value Ref Range Status 10/04/2023 22 22 - 32 mmol/L Final 10/03/2023 22 22 - 32 mmol/L Final 10/02/2023 25 22 - 32 mmol/L Final BUN Date Value Ref Range Status 10/04/2023 11 6 - 25 mg/dL Final 10/03/2023 15 6 - 25 mg/dL Final 10/02/2023 27 (H) 6 - 25 mg/dL Final Creatinine Date Value Ref Range Status 10/04/2023 1.56 (H) 0.80 - 1.30 mg/dL Final 10/03/2023 1.15 0.80 - 1.30 mg/dL Final 10/02/2023 1.70 (H) 0.80 - 1.30 mg/dL Final Albumin Date Value Ref Range Status 10/02/2023 4.3 3.5 - 5.0 g/dL Final 09/06/2023 4.8 3.5 - 5.0 g/dL Final 08/23/2023 4.9 3.5 - 5.0 g/dL Final Calcium Date Value Ref Range Status 10/04/2023 8.6 8.5 - 10.3 mg/dL Final 10/03/2023 8.4 (L) 8.5 - 10.3 mg/dL Final 10/02/2023 9.2 8.5 - 10.3 mg/dL Final Phosphorus, pl Date Value Ref Range Status 07/06/2023 2.6 2.3 - 4.5 mg/dL Final 06/23/2023 4.4 2.3 - 4.5 mg/dL Final 06/23/2023 5.1 (H) 2.3 - 4.5 mg/dL Final PTH Date Value Ref Range Status 09/06/2023 33 15 - 65 pg/mL Final Vitamin D 25-OH Date Value Ref Range Status 09/06/2023 9 (L) 30 - 80 ng/mL Final Hgb Date Value Ref Range Status 10/04/2023 10.4 (L) 13.0 - 17.5 g/dL Final 10/03/2023 10.0 (L) 13.0 - 17.5 g/dL Final 10/02/2023 10.7 (L) 13.0 - 17.5 g/dL Final IMAGING: Endoluminal stent is noted within the descending [...] the ureteral stones exceeds 2 mm in size ASSESSMENT AND PLAN: 1. 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 Hypertension -At target 3. Anemia of chronic kidney disease -At target 4. Renal osteodystrophy -At target DISPOSITION: The patient will follow-up 6 months documented in this encounter Plan of Treatment Not on file documented as of this encounter Goals Goal Patient Goal Type Associated Problems Recent Progress Patient-Stated? Author CCM Chronic Pain Care Plan Chronic Care Management No change(05/16 2:51 PM HEALTH AND PHYSICAL EDUCATION PROFESSOR) No Rita Landa RN Note: Problem: Chronic Pain Goals: 1. Minimize further functional decline 2. Maximize quality of life 3. Control pain Strategies: - Activity/exercise program recommendation - Conservative stepwise pain medicine strategy with multi-disciplinary approach - Recommend healthy lifestyle strategies and compensatory methods as needed documented as of this encounter Visit Diagnoses Diagnosis ANGI (acute kidney injury) (HCC)- Primary Renal insufficiency Unspecified disorder of kidney and ureter Primary hypertension Unspecified essential hypertension Ureteral calculi Calculus of ureter documented in this encounter Orders Outpatient Referral Count Last Ordered Date st Ordered Date AMB REFERRAL TO NEPHROLOGY 1 11/02/2023 documented in this encounter Care Teams Geospatial Information Scientist Relationship Specialty Start Date End Date Carl Strickland MD [address] [facility] [address] [place] [address] PCP - General Internal Medicine 06/06/23 Leo Manzano MD [id number] [place] [address] Surgeon Vascular Surgery 05/16/23 documented as of this encounter
--- OUTSIDE RECORDS SUMMARY | 2024-05-30 05:35 | XMS_ITS | Encounter Summary ---
Author Organization [facility] Healthcare Address [address] [facility] [place] [address] Care Team Providers Care Warehouse Shift Supervisor Name Role Phone Leo Manzano MD Unavailable [phone] Carl Strickland MD Primary Care Provider Reason for Visit * Reason Comments Flank Pain * Auth/Cert (Routine) Specialty Diagnoses / Procedures Referred By Contac t Referred To Contact Diagnoses Ureteral calculi Procedures na Referral ID Status Reason Start Date Expiration Date Visits Re quested Visits Authorized [id number] 1 1 Encounter Details Date Type Department Care Team (Late st Contact Info) Description 09/27/2023 4:15 PM CDT - 09/27/2023 5:55 PM CDT Surgery [facility] Operating Room [address] [place] [id number] Marcus Glass MD [address] [place] [address] CYSTOSCOPY RETROGRADE PYELOGRAM - RIGHT URETEROSCOPY, LASER , INSERTION RIGHT URETERAL STENT, BASKET STONE EXTRACTION Surgery Details Date/Time Status Location OR Service Patient Class Case Class Case Type Trauma Case? 09/27/2023 4:15 PM Posted [facility] OPERATING ROOM CYSTO Urology Inpatient Urgent - 24 hours Panel 1 Procedure LRB Anes Op Region Wound Class Comments CYSTOSCOPY RETROGRADE PYELOGRAM - RIGHT URETEROSCOPY, LASER , INSERTION RIGHT URETERAL STENT, BASKET STONE EXTRACTION Right General Ureter Class II - Myra n Contaminated NO SA NEEDED Surgeon Surgeon Role Service Panel Marcus Glass MD Primary Urology 1 documented in this encounter Social History Tobacco Use Types Packs/Day Years Used Date Smoking Tobacco: Never Smokeless Tobacco: Never Alcohol Use Standard Drinks/Week Comments Not Currently 0 (1 standard drink = 0.6 oz pur e alcohol) [facility] Utilities Answer Date Recorded In the past 12 months has [employer], gas, oil, or water [employer] threatened to shut off services in your home? Patient declined 09/12/2023 Social Connection and Isolation Panel [NHANES] A nswer Date Recorded In a typical week, how many times do you talk on the phone with family, friends, or neighbors? Patient declined 09/12/2023 How often do you get togethe r with friends or relatives? Patient declined 09/12/2023 How often do you attend caodaism or zoroastrian serv ices? Patient declined 09/12/2023 Do you belong to any clubs o r organizations such as caodaism groups, unions, fraternal or athletic groups, or school groups? Patient declined 09/12/2023 How often do you attend meet ings of the clubs or organizations you belong to? Patient declined 09/12/2023 Are you , , di vorced, , never , or living with a partner? Patient declined 09/12/2023 AUDIT-C Answer Date Recorded Q1: How often [...] like food, housing, medical care, and heating? Patient declined 09/12/2023 PHQ-2 Answer Date Recorded PHQ-2 Total Score (If total score is 3 or more points, staff should administer the PHQ-9) 0 06/24/2023 Hunger Vital Sign Answer Date Recorded Within the past 12 months, y ou worried that your food would run out before you got the money to buy more. Never true 09/27/19 24 Within the past 12 months, t he food you bought just didn't last and you didn't have money to get more. Never true 09/27/2023 PRAPARE - Transportation Answer Date Re corded In the past 12 months, has l ack of transportation kept you from medical appointments or from getting medications? Patient declined 09/12/2023 In the past 12 months, has l ack of transportation kept you from meetings, work, or from getting things needed for daily living? Patient declined 09/12/2023 Housing Stability Vital Sign Answer Caden e Recorded In the last 12 months, was t here a time when you were not able to pay the mortgage or rent on time? Patient declined 09/12/19 In the last 12 months, how many places have you lived? 0 09/12/2023 In the last 12 months, was t here a time when you did not have a steady place to sleep or slept in a long term (including now)? Patient declined 09/12/2023 Personal Safety Answer Date Recorded Have you ever been in or are you currently in a harmful physical or emotional relationship or is someone making you feel afraid or unsafe? 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 Gender Identity Not on file Sexual Orientation Straight 06/12/2023 11 :43 PM SENIOR PORTFOLIO ANALYST documented as of this encounter Last Filed Vital Signs Vital Sign Reading Time Taken Comments Blood Pressure 155/96 09/27/2023 5:55 PM CDT Pulse 67 09/27/2023 5:55 PM CDT Temperature 36.3 ??C (97.4 ??F) 09/27/2023 5:48 PM CD T Respiratory Rate 12 09/27/2023 5:55 PM CDT Oxygen Saturation 100% 09/27/2023 5:55 PM CDT Inhaled Oxygen Concentration - - Weight 96.2 kg (212 lb) 09/27/2023 3:50 PM CDT Height 175.3 cm (5' 9 ) 09/27/2023 3:50 PM CDT Body Mass Index 31.31 09/27/2023 3:50 PM CDT documented in this encounter Medications at Time [...] day To prevent constipation 40 tablet 3 amitriptyline (ELAVIL) 25 mg tablet Take 1 tablet (25 mg total) by mouth nightly 30 tablet 1 4 05/29/20 24 gabapentin (NEURONTIN) 600 mg tablet Take 1 tablet (600 mg total) by mouth 3 (three) times a day 02/28/20 24 HYDROcodone-acetami nophen (NORCO) 5-325 mg per tabletIndications:P ain Take 1 tablet by mouth every 6 (six) hours as needed for pain 10/04/19 24 labetaloL (NORMODYNE,TRANDATE ) 200 mg tablet [...] total) by mouth daily 4 10/07/19 24 tamsulosin (Flomax) 0.4 mg extended release capsuleIndications: Urolithiasis Take 1 capsule (0.4 mg total) by mouth daily Take while stent is in place and for three days after stent removal 30 capsule 1 4 10/02/19 24 documented as of this encounter Ordered Prescriptions Prescription Sig Dispense Quantity Refills Last Filled Start Date End Date oxyBUTYnin (DITROPAN) 5 mg tabletIndications: Ureteral stent discomfort Take 1 tablet (5 mg total) by mouth 3 (three) times a day as needed (Bladder spasms/discom fort) 30 tablet 3 09/27/2023 hyoscyamine (LEVSIN) 0.125 mg SL tabletIndications: Ureteral stent discomfort Take 1 tablet (0.125 mg total) by mouth every 4 (four) hours as needed (Bladder spasms/discom fort) 30 tablet 3 09/27/2023 tamsulosin (Flomax) 0.4 mg extended release capsuleIndications :Urolithiasis Take 1 capsule (0.4 mg total) by mouth daily Take while stent is in place and for three days after stent removal 30 capsule 1 09/27/2023 4 documented in this encounter Discharge Disposition Disposition Code Departure Means Destination Comment s Left Against Medical Advice documented in this encounter H&P Notes * Lee Hawkins MD - 09/27/2023 10:29 PM CDT History and Physical Date of Service: 09/27/2023 Primary Care Physician: Carl Strickland MD [phone] SUBJECTIVE: 33-year-old male with history of aortic dissection, hypertension, chronic pain, and nephrolithiasiswho presents with several day history of right flank pain. Reports he was diagnosed with a kidney stone had urgent care. CT scan today shows a right 4 mm proximal ureteral stone with upstream hydronephrosis. Urinalysis is overall unremarkable without concern for infection. He denies fevers or chills. HPI: Patient presented with right-sided flank pain. Found to have obstructing right- sided ureteral stonewith upstream hydronephrosis. Urology consulted. Patient underwent cystoscopy with stent placement.After the procedure patient was adamant and wanted to be discharged today. Dr. Glass with Urology placed discharge instructions and was okay for the patient to be discharged today. Then patient changed his mind and would did to stay overnight, however by the time I came to see the patient the has eloped without notifying nursing staff or physician. Past Medical History: Diagnosis Date Abdominal pain Anxiety Depression Hypertension Kidney stones Memory loss Past Surgical History: Procedure Laterality Date ABDOMINAL AORTIC ANEURYSM REPAIR Medications Prior to Admission Medication Sig Dispense Refill Last Dose amitriptyline (ELAVIL) 25 mg tablet Take 1 tablet (25 mg total) by mouth nightly 30 tablet 1 09/26/2023 amLODIPine (NORVASC) 10 mg tablet Take 1 tablet (10 mg total) by mouth daily 30 tablet 11 09/27/2023 aspirin 81 mg chewable tablet Take 1 tablet (81 mg total) by mouth daily 30 tablet 11 09/27/2023 dicyclomine (BENTYL) 20 mg tablet Take 1 tablet (20 mg total) by mouth every 6 (six) hours as needed (For abdominal pain) 120 tablet 0 Past Month ergocalciferol (VITAMIN D) 50,000 unit capsule Take 1 capsule (50,000 Units total) by mouth once a week for 7 doses 7 capsule 0 Past Week gabapentin (NEURONTIN) 600 mg tablet Take 1 tablet (600 mg total) by mouth 3 (three) times a day 09/27/2023 at AM hydrALAZINE (APRESOLINE) 50 mg tablet Take 1 tablet (50 mg total) by mouth 3 (three) times a day 90tablet 11 09/27/2023 at AM HYDROcodone-acetaminophen (NORCO) 5-325 mg per tablet Take 1 tablet by mouth every 6 (six) hours asneeded for pain 09/27/2023 hydrocortisone (ANUSOL-HC) 2.5 % rectal cream Insert into the rectum 2 (two) times a day as needed for hemorrhoids 30 g 0 Past Week labetaloL (NORMODYNE,TRANDATE) 200 mg tablet Take 2 tablets (400 mg total) by mouth 2 (two) times aday 120 tablet 1 09/27/2023 at AM ondansetron ODT (ZOFRAN-ODT) 4 mg disintegrating tablet Take 1 tablet (4 mg total) by mouth every 8(eight) hours as needed for nausea or vomiting 10 tablet 0 Past Week QUEtiapine (SEROquel) 50 mg tablet Take 1 tablet (50 mg total) by mouth nightly 30 tablet 1 09/26/2023 senna-docusate (PERICOLACE) 8.6-50 mg Take 2 tablets by mouth 2 (two) times a day To prevent constipation 40 tablet 0 09/27/2023 at AM tamsulosin (FLOMAX) 0.4 mg extended release capsule Take 1 capsule (0.4 mg total) by mouth nightly 09/26/2023 acetaminophen (TYLENOL) 500 mg tablet Take 2 tablets (1,000 mg total) by mouth every 6 (six) hours as needed for pain, headaches or fever Unknown capsaicin (ZOSTRIX) 0.025 % cream Apply 1 Application topically 2 (two) times a day as needed for pain Unknown Allergies Allergen Reactions Lisinopril Angioedema Amoxicillin Hives [...] Depression Brother Anxiety disorder Brother Review of Systems: Positives as stated in HPI. OBJECTIVE: Vitals: Arrival Vitals Temp 09/27/23 1101 36.4 ??C (97.6 ??F) Pulse 09/27/23 1101 77 Resp 09/27/23 1101 18 BP 09/27/23 1101 114/85 SpO2 09/27/23 1101 97 % Temp src 09/27/23 1101 Oral Heart Rate Source 09/27/23 1550 Monitor Patient Position 09/27/23 1550 HOB 30 degrees BP Location 09/27/23 1550 Right arm FiO2 (%) -- Most Recent : Vitals: 09/27/23 19209/27/23193409/27/23194409/27/232012 BP: 146/96 121/76 125/69 141/70 BP Location: Right arm Patient Position: HOB 30 degrees Pulse: 78 90 81 73 Resp: 15 18 16 16 Temp: 36.4 ??C (97.5 ??F) TempSrc: Oral SpO2: 96% 95% 96% 96% Weight: Height: I/O last 2 completed shifts: In: - Out: 1135 [Urine:1130; Blood:5] I/O this shift: In: - Out: 450 [Urine:450] Physical exam: Patient elopeted without being seen Lab/Radiology/Diagnostic Review: Recent Results (from the past 24 hour(s)) Basic metabolic panel Collection Time: 09/27/23 12:16 PM Result Value Ref Range Sodium 139 135 - 145 mmol/L Potassium, pl 4.1 3.3 - 4.9 mmol/L Chloride 105 97 - 110 mmol/L CO2 22 22 - 32 mmol/L Anion gap 12 2 - 15 mmol/L BUN 25 6 - 25 mg/dL Creatinine 2.12 (H) 0.80 - 1.30 mg/dL Glucose 96 70 - 199 mg/dL Calcium 9.2 8.5 - 10.3 mg/dL CBC with auto differential Collection Time: 09/27/23 12:16 PM Result Value Ref Range WBC 11.7 (H) 3.8 - 9.9 K/cumm Hgb 11.7 (L) 13.0 - 17.5 g/dL Hct 36.9 (L) 38.9 - 50.3 % Plt 267 150 - 400 K/cumm MPV 9.1 9.1 - 12.3 fL RBC 4.01 (L) 4.30 - 5.80 M/cumm MCV 92.0 81.3 - 96.4 fL MCH 29.2 27.1 - 33.3 pg MCHC 31.7 (L) 32.3 - 35.7 g/dL RDW CV 15.8 (H) 11.1 - 14.9 % RDW SD 53.6 (H) 35.7 - 48.1 fL NRBC abs 0.00 0.00 - 0.01 K/cumm Differential, auto Collection Time: 09/27/23 12:16 PM Result Value Ref Range Neutrophil abs 9.2 (H) 1.5 - 6.5 K/cumm Imm gran abs 0.1 0.0 - 0.1 K/cumm Lymphocyte abs 1.0 0.8 - 3.3 K/cumm Monocyte abs 1.3 (H) 0.2 - 0.8 K/cumm Eosinophil abs 0.0 0.0 - 0.5 K/cumm Basophil abs 0.1 0.0 - 0.1 K/cumm Neutrophil pct 78.9 % Imm gran pct 0.6 % Lymphocyte pct 8.9 % Monocyte pct 10.9 % Eosinophil pct 0.3 % Basophil pct 0.4 % eGFR Collection Time: 09/27/23 12:16 PM Result Value Ref Range eGFR 42 (L) >=60 mL/min/1.73 m2 Urinalysis reflex to microscopic and culture Urine Collection Time: 09/27/23 2:29 PM Specimen: Urine Result Value Ref Range Color, ur Yellow Yellow Clarity, ur Clear Clear Specific gravity, ur 1.024 1.003 - 1.030 pH, urine 6.0 Protein, ur ql 1+ (A) Negative Glucose, ur ql Negative Negative Ketones, ur Negative Negative Bilirubin, ur Negative Negative Blood, ur Negative Negative Urobilinogen, ur <2.0 <2.0 mg/dL Nitrite, ur Negative Negative Leukocyte esterase, ur Negative Negative UA reflex comment Reflex to microscopic UA will be performed. Drugs of Abuse Screen, Urine without Confirmation Collection Time: 09/27/23 2:29 PM Result Value Ref Range Amphetamine, ur Screen Positive, presumptive (A) CutOff 500ng/mL Barbiturates, ur Not Detected CutOff 200ng/mL Benzodiazepines, ur Not Detected CutOff 100ng/mL Cannabinoids, ur Screen Positive, presumptive (A) CutOff 50 ng/mL Cocaine, ur Not Detected CutOff 150ng/mL Fentanyl, Ur Not Detected CutOff 5 ng/mL Methadone, ur Not Detected CutOff 300ng/mL Opiates, ur Screen Positive, presumptive (A) CutOff 300ng/mL Oxycodone, ur Screen Positive, presumptive (A) CutOff 100ng/mL Phencyclidine, ur Not Detected CutOff 25 ng/mL Urine Creatinine 173 mg/dL Urinalysis, microscopic only Collection Time: 09/27/23 2:29 PM Result Value Ref Range WBC, ur 0-5 0 - 5 /HPF RBC, ur 3-5 (A) 0 - 2 /HPF Epithelial cells, squamous, ur 1-5 0 - 5 /HPF Mucous, ur Present (A) Hyaline casts, ur 1-5 0 - 10 /LPF Culture Reflex Comment Reflex conditions for urine culture (WBC >10) not met. FL Fluoroscopy < 1 Hour Result Date: [...] CTA chest abdomen pelvis dated 09/26/2023 from [facility], CT dated 08/23/2023 from [facility] FINDINGS: Mild bibasilar atelectasis. Partially visualized aortic stent graft extending from the superior [id number] in the thoracic aorta to the distal [...] this noncontrast exam. Electronically signed by: Christy Dominguez, MRI Lumbar Spine WO Contrast Result Date: [...] to the left common iliac artery, unchanged sinceprior. Both iliac arteries remain widely patent. There [...] Electronically signed by: Buffy Chang M.D. ASSESSMENT/PLAN: Principal Problem: Ureteral calculi Patient left without being seen . I called the mother on her cell phone , however there was no answer Will notify house security and housekeeper nanny Principal Problem: Ureteral calculi Full Code The patient is asked to make an attempt to improve diet and exercise patterns to aid in medical management of this problem. DVT PPX GI PPX ESTIMATED LENGTH OF STAY: less than 2 MN Lee Hawkins MD 09/27/2023 10:30 PM * Marcus Glass MD - 09/27/2023 4:41 PM CDT I have reviewed the H&P, examined the patient, and endorse the findings as written. Plan of Care : Based on the above findings, I consider Eriberto Chau to be an acceptable risk for : Procedure(s): CYSTOSCOPY RETROGRADE PYELOGRAM - RIGHT URETEROSCOPY, LASER , INSERTION RIGHT URETERAL STENT Source Note - Vandana Whitman MD - 09/27/2023 3:39 PM CDT Images from the original note were not included. Anesthesia Evaluation Eriberto Chau is a 33 y.o. male CYSTOSCOPY RETROGRADE PYELOGRAM - RIGHT URETEROSCOPY, LASER , INSERTION RIGHT URETERAL STENT (Right: Ureter) * No Diagnosis Codes entered * HISTORY Past Medical History Neurological + Psychiatric history - anxiety and depression Cardiovascular + Hypertension + PAD/Aorta disease (Aortic dissection) - prior percutaneous revascularization. Renal / + Renal disease + Nephrolithiasis Musculoskeletal/Pain + Chronic pain - back pain. + Chronic opioid use - daily. + Headaches - migraine headaches. Endocrine / Other + Obesity (BMI >30) Review of Systems + chronic pain Comments: Polysubstance abuse Patient Active Problem List Diagnosis Date Noted Ureteral calculi 09/27/2023 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HCC) 09/06/2023 Back pain at L4-L5 level 08/23/2023 PFO (patent foramen ovale) 07/05/2023 Ureteral stone 07/04/2023 Abdominal pain 07/04/2023 Other chronic pain 06/24/2023 Pseudoaneurysm following procedure (CMS/HCC) ([facility]) 06/24/2023 Infrarenal abdominal aortic aneurysm, without rupture ([facility]) 06/13/2023 Polysubstance abuse (CMS/HCC) ([facility]) 06/10/2023 Moderate malnutrition (CMS/HCC) ([facility]) 06/09/2023 Dissection of abdominal aorta (CMS/HCC) ([facility]) 06/03/2023 Urinary retention 05/16/2023 Epistaxis 05/13/2023 Pneumonia 05/13/2023 HTN (hypertension) 05/13/2023 Dissection of thoracoabdominal aorta (CMS/HCC) ([facility]) 05/02/2023 Dissection of aorta, unspecified portion of aorta ([facility]) 05/01/2023 Past Medical History: Diagnosis Date Abdominal pain Anxiety Depression Hypertension Kidney stones Memory loss Past Surgical History: Procedure Laterality Date ABDOMINAL AORTIC ANEURYSM REPAIR Allergies Allergen Reactions Lisinopril Angioedema Amoxicillin Hives Med List Status: Pharmacy Complete Set By: Priscilla Pagan [facility] at 09/27/2023 1:59 PM Taking? Last Dose Start Date End Date Provider acetaminophen (TYLENOL) 500 mg tablet Unknown -- -- Eli Blandon MD amitriptyline (ELAVIL) 25 mg tablet 09/26/2023 09/09/23 -- Otoniel Echols MD Take 1 tablet (25 mg total) by mouth nightly amLODIPine (NORVASC) 10 mg tablet 09/27/2023 06/26/23 06/25/24 Cristobal Chopra MD Take 1 tablet (10 mg total) by mouth daily aspirin 81 mg chewable tablet 09/27/2023 05/17/23 05/16/24 Meron Parekh NP Take 1 tablet (81 mg total) by mouth daily capsaicin (ZOSTRIX) 0.025 % cream Unknown -- -- Eli Blandon MD dicyclomine (BENTYL) 20 mg tablet Past Month 09/09/23 09/08/24 Otoniel Echols MD Take 1 tablet (20 mg total) by mouth every 6 (six) hours as needed (For abdominal pain) ergocalciferol (VITAMIN D) 50,000 unit capsule Past Week 09/14/23 10/27/23 Otoniel Echols MD Take 1 capsule (50,000 Units total) by mouth once a week for 7 doses Notes: wednesdays gabapentin (NEURONTIN) 600 mg tablet 09/27/2023 -- -- Eli Blandon MD hydrALAZINE (APRESOLINE) 50 mg tablet 09/27/2023 06/25/23 06/24/24 Cristobal Chopra MD Take 1 tablet (50 mg total) by mouth 3 (three) times a day HYDROcodone-acetaminophen (NORCO) 5-325 mg per tablet 09/27/2023 -- -- Eli Blandon MD hydrocortisone (ANUSOL-HC) 2.5 % rectal cream Past Week 09/09/23 -- Otoniel Echols MD Insert into the rectum 2 (two) times a day as needed for hemorrhoids labetaloL (NORMODYNE,TRANDATE) 200 mg tablet 09/27/2023 09/09/23 11/08/23 Otoniel Echols MD Take 2 tablets (400 mg total) by mouth 2 (two) times a day ondansetron ODT (ZOFRAN-ODT) 4 mg disintegrating tablet Past Week 05/16/23 -- Meron Parekh NP Take 1 tablet (4 mg total) by mouth every 8 (eight) hours as needed for nausea or vomiting QUEtiapine (SEROquel) 50 mg tablet 09/26/2023 09/09/23 -- Otoniel Echols MD Take 1 tablet (50 mg total) by mouth nightly senna-docusate (PERICOLACE) 8.6-50 mg 09/27/2023 05/16/23 -- Meron Parekh NP Take 2 tablets by mouth 2 (two) times a day To prevent constipation tamsulosin (FLOMAX) 0.4 mg extended release capsule 09/26/2023 09/26/23 -- Eli Blandon MD Current Facility-Administered Medications: fentaNYL (SUBLIMAZE) preservative free injection 50 mcg, 50 mcg, intravenous, Q15 Min PRN, 50 mcg at 09/27/23 1231 HYDROmorphone (DILAUDID) injection 1 mg, 1 mg, intravenous, Q1H PRN, 1 mg at 09/27/23 1515 morphine injection 6 mg, 6 mg, intravenous, Q1H PRN, 6 mg at 09/27/23 1225 Current Outpatient Medications: amitriptyline (ELAVIL) 25 mg tablet amLODIPine (NORVASC) 10 mg tablet aspirin 81 mg chewable tablet dicyclomine (BENTYL) 20 mg tablet ergocalciferol (VITAMIN D) 50,000 unit capsule gabapentin (NEURONTIN) 600 mg tablet hydrALAZINE (APRESOLINE) 50 mg tablet HYDROcodone-acetaminophen (NORCO) 5-325 mg per tablet hydrocortisone (ANUSOL-HC) 2.5 % rectal cream labetaloL (NORMODYNE,TRANDATE) 200 mg tablet ondansetron ODT (ZOFRAN-ODT) 4 mg disintegrating tablet QUEtiapine (SEROquel) 50 mg tablet senna-docusate (PERICOLACE) 8.6-50 mg tamsulosin (FLOMAX) 0.4 mg extended release capsule acetaminophen (TYLENOL) 500 mg tablet capsaicin (ZOSTRIX) 0.025 % cream Social History Tobacco Use Smoking Status Never Smokeless Tobacco Never Alcohol Use: Not At Risk (09/27/2023) AUDIT-C Frequency of Alcohol Consumption: Never Average Number of Drinks: Patient does not drink Frequency of Binge Drinking: Never Substance and Sexual Activity Drug Use Not Currently Types: Marijuana Family History Problem Relation Age of Onset Depression Mother Anxiety disorder Mother Depression Father Anxiety disorder Sister Depression Sister Depression Brother Anxiety disorder Brother Vitals: 09/27/23 1235 09/27/23 1240 09/27/23 1515 BP: 125/89 145/83 Pulse: 85 88 80 Resp: 18 16 Temp: SpO2: 98% 93% 97% PT: 09/06/2023: 12.3 sec INR: 09/06/2023: 1.08 APTT: 09/06/2023: 33 sec Hgb A1C: No results found for requested labs within last 30 days. CBC RBC: 09/27/2023: 4.01 M/cumm (L) RDW: No results found for requested labs within last 30 days. MCHC: 09/27/2023: 31.7 g/dL (L) MCH: 09/27/2023: 29.2 pg MCV: 09/27/2023: 92.0 fL Hct: 09/27/2023: 36.9 % (L) Hgb: 09/27/2023: 11.7 g/dL (L) WBC: 09/27/2023: 11.7 K/cumm (H) MPV: 09/27/2023: 9.1 fL Platelets: 09/27/2023: 267 K/cumm RDW CV: 09/27/2023: 15.8 % (H) RDW Sd: 09/27/2023: 53.6 fL (H) BMP Glucose: 09/27/2023: 96 mg/dL Calcium: 09/27/2023: 9.2 mg/dL Sodium: 09/27/2023: 139 mmol/L Potassium: 09/27/2023: 4.1 mmol/L CO2: 09/27/2023: 22 mmol/L Chloride: 09/27/2023: 105 mmol/L BUN: 09/27/2023: 25 mg/dL Creatinine: 09/27/2023: 2.12 mg/dL (H) DOS Physical Exam Medical history, medications, and allergies reviewed. Attestation: This PAT evaluation 09/27/2023. Airway Exam: Mallampati: II Cervical ROM: FROM TM distance: >4 Cardiovascular Exam: Rate: regular Rhythm: regular Pulmonary Exam: LCTA, bilat Dental Exam: Otherwise appears intact Anesthesia Plan ASA 2 My patient is approved for the Anesthesia Controlled Medication protocol when under care of a YOGA TEACHER Planned anesthesia: General Team communication plan: LMA Induction: Induction: intravenous. Postoperative Plan: Postoperative administration opioids intended. No postoperative mechanical ventilation intended. Patient's planned disposition post procedure is Floor. Informed Consent: Discussed plan with YOGA TEACHER. Anesthesia plan and risks discussed with patient. Consent and Attending signature: I and/or my designee have discussed the anesthesia plan, benefits, possible alternatives, parental presence at time of induction (if indicated), and clinically relevant risks that may include dental injury, unintentional awareness, and/or other complications. The patient and/or parent/legal guardian understand, and agree to proceed. All questions answered. documented in this encounter Consult Notes * Marcus Glass MD - 09/27/2023 6:16 PM CDT [facility] Urology Consultation Reason for Consult: Right ureteral stone Requesting Provider: Dr. Atkins Subjective Patient is a 33 y.o. male with chief complaint of right flank pain. HPI: 33-year-old male with history of aortic dissection, hypertension, chronic pain, and nephrolithiasiswho presents with several day history of right flank pain. Reports he was diagnosed with a kidney stone had urgent care. CT scan today shows a right 4 mm proximal ureteral stone with upstream hydronephrosis. Urinalysis is overall unremarkable without concern for infection. He denies fevers or chills. Past Medical History: Diagnosis Date Abdominal pain Anxiety Depression Hypertension Kidney stones Memory loss Past [...] Depression Sister Depression Brother Anxiety disorder Brother Medications Prior to Admission Medication Sig Dispense Refill Last Dose amitriptyline (ELAVIL) 25 mg tablet Take 1 tablet (25 mg total) by mouth nightly 30 tablet 1 09/26/2023 amLODIPine (NORVASC) 10 mg tablet Take 1 tablet (10 mg total) by mouth daily 30 tablet 11 09/27/2023 aspirin 81 mg chewable tablet Take 1 tablet (81 mg total) by mouth daily 30 tablet 11 09/27/2023 dicyclomine (BENTYL) 20 mg tablet Take 1 tablet (20 mg total) by mouth every 6 (six) hours as needed (For abdominal pain) 120 tablet 0 Past Month ergocalciferol (VITAMIN D) 50,000 unit capsule Take 1 capsule (50,000 Units total) by mouth once a week for 7 doses 7 capsule 0 Past Week gabapentin (NEURONTIN) 600 mg tablet Take 1 tablet (600 mg total) by mouth 3 (three) times a day 09/27/2023 at AM hydrALAZINE (APRESOLINE) 50 mg tablet Take 1 tablet (50 mg total) by mouth 3 (three) times a day 90tablet 11 09/27/2023 at AM HYDROcodone-acetaminophen (NORCO) 5-325 mg per tablet Take 1 tablet by mouth every 6 (six) hours asneeded for pain 09/27/2023 hydrocortisone (ANUSOL-HC) 2.5 % rectal cream Insert into the rectum 2 (two) times a day as needed for hemorrhoids 30 g 0 Past Week labetaloL (NORMODYNE,TRANDATE) 200 mg tablet Take 2 tablets (400 mg total) by mouth 2 (two) times aday 120 tablet 1 09/27/2023 at AM ondansetron ODT (ZOFRAN-ODT) 4 mg disintegrating tablet Take 1 tablet (4 mg total) by mouth every 8(eight) hours as needed for nausea or vomiting 10 tablet 0 Past Week QUEtiapine (SEROquel) 50 mg tablet Take 1 tablet (50 mg total) by mouth nightly 30 tablet 1 09/26/2023 senna-docusate (PERICOLACE) 8.6-50 mg Take 2 tablets by mouth 2 (two) times a day To prevent constipation 40 tablet 0 09/27/2023 at AM tamsulosin (FLOMAX) 0.4 mg extended release capsule Take 1 capsule (0.4 mg total) by mouth nightly 09/26/2023 acetaminophen (TYLENOL) 500 mg tablet Take 2 tablets (1,000 mg total) by mouth every 6 (six) hours as needed for pain, headaches or fever Unknown capsaicin (ZOSTRIX) 0.025 % cream Apply 1 Application topically 2 (two) times a day as needed for pain Unknown Allergies Allergen Reactions Lisinopril Angioedema Amoxicillin Hives Vitals: 24hr Min/Max: Temp Min: 36.3 ??C (97.4 ??F) Max: 36.4 ??C (97.6 ??F) Pulse Min: 60 Max: 96 BP Min: 90/60 Max: 155/96 Resp Min: 8 Max: 23 SpO2 Min: 93 % Max: 100 % Most Recent : Vitals: 09/27/23 1810 BP: 147/88 Pulse: 79 Resp: 14 Temp: SpO2: 100% No intake/output data recorded. I/O this shift: In: - Out: 355 [Urine:350; Blood:5] Review of systems: All systems were negative IF not discussed HPI. Objective: Vitals: 09/27/23 1810 BP: 147/88 Pulse: 79 Resp: 14 Temp: SpO2: 100% Physical Exam: Constitutional: Appears uncomfortable Skin/Integumentary: no bruising or rashes on face or hands, scalp atraumatic Respiratory: Nonlabored respirations Genitourinary: Right CVA tenderness to palpation Psychiatric: Mood and affect appropriate, alert and oriented to person, place and time, good historian Neurologic: Normal gait, speech clear, tongue midline, normal hand strength Lab/Radiology/Diagnostic Review: CT abdomen pelvis without contrast personally reviewed. This shows a right 4 mm proximal ureteral stone. There are several punctate stones bilaterally which are nonobstructing. Urinalysis overall not concerning for infection given negative nitrite, 0-5 WBC, 3-5 RBC. Chemistry shows acute kidney injury with creatinine of 2.12 from 1.2 to approximately 3 weeks ago. Assessment/Plan: Eriberto Chau is a 33 y.o. with history of aortic dissection, hypertension, nephrolithiasis withright obstructing proximal ureteral stone with uncontrolled pain. He also has acute kidney injury. # right ureteral stone - OR today for right ureteroscopy, laser lithotripsy, and stent placement # acute kidney injury - likely multifactorial but suspect significant prerenal component given normal contralateral kidney - continue to monitor renal function postoperatively Will follow Marcus Glass MD [facility] Urology documented in this encounter ED Notes * Heber Arroyo MD - 09/27/2023 11:18 AM CDT HPI 33-year-old male with history type B aortic dissection and hypertension presents with right-sided flank pain radiating underneath the testicle. He was diagnosed approximately 24-48 hours ago with a 7mm stone. He states the pain has been on and off since then. Endorses dark bloody urine. Denies fevers. Of note he went to have his pain medication for his chronic low back pain today prior to present ing to the emergency department for further evaluation and he was told that he would most likely need a stent. Chief Complaint Patient presents with ??? Flank Pain HPI Patient History: Patient Active Problem List Diagnosis Date Noted ??? Weight loss 10/03/2023 ??? Pyelonephritis 10/02/2023 ??? Hypokalemia 10/02/2023 ??? ANGI (acute kidney injury) ([facility]) 10/02/2023 ??? Syncope 10/02/2023 ??? Ureteral calculi 09/27/2023 ??? 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[facility]) 09/06/2023 ??? Back pain at L4-L5 level 08/23/2023 ??? PFO (patent foramen ovale) 07/05/2023 ??? Ureteral stone 07/04/2023 ??? Abdominal pain 07/04/2023 ??? Other chronic pain 06/24/2023 ??? 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 Infrarenal abdominal aortic aneurysm, without rupture ([facility]) 06/13/2023 ??? Polysubstance abuse (CMS/HCC) (HCC) 06/10/2023 ??? Moderate malnutrition (CMS/HCC) ([facility]) 06/09/2023 ??? Dissection of abdominal aorta (CMS/HCC) ([facility]) 06/03/2023 ??? Urinary retention 05/16/2023 ??? Epistaxis 05/13/2023 ??? Pneumonia 05/13/2023 ??? HTN (hypertension) 05/13/2023 ??? Dissection of thoracoabdominal aorta (CMS/HCC) ([facility]) 05/02/2023 ??? Dissection of aorta, unspecified portion of aorta ([facility]) 05/01/2023 Past Medical History: Diagnosis Date ??? [...] Negative for chest pain and palpitations. Gastrointestinal: Negative for abdominal pain and vomiting. Genitourinary: Negative for dysuria and hematuria. Musculoskeletal: Negative for arthralgias and back pain. Skin: Negative for color change and rash. Neurological: Negative for seizures and syncope. All other systems reviewed and are negative. Physical Exam ED Triage Vitals Temp Pulse Resp BP SpO2 09/27/23 1101 09/27/23 1101 09/27/23 1101 09/27/23 1101 09/27/23 1101 36.4 ??C (97.6 ??F) 77 18 114/85 97 % Temp src Heart Rate Source Patient Position BP Location FiO2 (%) 09/27/23 1101 09/27/23 1550 09/27/23 1550 09/27/23 1550 -- Oral Monitor HOB 30 degrees Right arm Height Height Method Weight Weight Method 09/27/23 1550 09/27/23 1550 09/27/23 1101 09/27/23 1550 1.753 m (5' 9 ) Stated 96.6 kg (212 lb 15.4 oz) Stated Physical Exam Vitals and nursing note reviewed. Constitutional: General: He is in acute distress. Appearance: He is well-developed. HENT: Head: Normocephalic and atraumatic. Eyes: Conjunctiva/sclera: Conjunctivae normal. Cardiovascular: Rate and Rhythm: Normal rate and regular rhythm. Heart sounds: No murmur heard. Pulmonary: Effort: Pulmonary effort is normal. No respiratory distress. Breath sounds: Normal breath sounds. Abdominal: Palpations: Abdomen is soft. Tenderness: There is no abdominal tenderness. There is right CVA tenderness. Genitourinary: Testes: Normal. Musculoskeletal: General: No swelling. Cervical back: Neck supple. Skin: General: Skin is warm and dry. Capillary Refill: Capillary refill takes less than 2 seconds. Neurological: Mental Status: He is alert. Psychiatric: Mood and Affect: Mood normal. MDM Medical Decision Making 33-year-old with known renal stone. Unfortunately we have no prior imaging. My differential would include: 1. Acute obstruction 2. Infection 3. Acute on chronic low back pain Plan emergency department is for: 1. Parenteral pain medication administered 2. IV fluids 3. CT imaging 4. Anticipate urologic consultation. Amount and/or Complexity of Data Reviewed Independent Historian: parent External Data Reviewed: notes. Details: 1. History of type B aortic dissection status post repair in April of 2023 and May of 2023 2. Hypertension 3. Chronic low back pain Labs: ordered. Decision-making details documented in ED Course. Radiology: ordered. Risk Prescription drug management. Decision regarding hospitalization. ED Course as of 10/03/23 0752 Time: 09/26 0751 Comment: Case discussed with urology and they agreed for stenting. Patient signed out to hospitalist who graciously accepted the admission. By: Heber Arroyo MD Time: 09/26 130 Comment: Writhing in pain secondary to his renal stone. By: Heber Arroyo MD Time: 09/26 130 Value: Creatinine(!): 2.12 Comment: Concerning. Awaiting imaging to consult with Urology By: Heber Arroyo MD Time: 09/26 130 Comment: CT delayed due to inability to control his pain. We are escalating analgesic dosing as we speak. By: Heber Arroyo MD Final diagnoses: Flank pain Ureteral calculi [N20.1] Heber Arroyo MD 10/03/23 075 * Dacia Brewster, BRIA - 09/27/2023 10:55 AM CDT States he was seen at [facility] yesterday and was told he has a 7mm stone in right kidney. States he was told he needs a stent placed, but [place] does not have urology. Endorses dark urine, right flank pain, and nausea documented in this encounter Miscellaneous Notes * Plan of Care - Brian Suero RN - 09/27/2023 11:35 PM CDT Goals: Clinical Goals for the Shift: Pain control, monitor Vss, discharge Summary: Pain controlled by , dilaudid and oxy, pt requested to be discharged and said if they don't discharge him he will leave against medical advice, education given and the pt states that he knows everything and he has once done that. The surgeon was advised over the phone, Hospital ist notified via secure chat and she had instructed to keep the pt until she came and see her, At 2241 Oxy 5mg was given and that the time the nurse last personally see the pt in the room with his mother and advised them to wait for the doc to come and see the pt before discharge. At [address] Hawkins came it see the pt and the pt had left the room, his belonging gone, IV was out found in the [place] can attempted to contact pt and his mother and a voice not was left for them to respond. Charge nurse, and security notified. * Op Note - Marcus Glass MD - 09/27/2023 4:15 PM CDT Operative Report SURGEON: Marcus Glass MD SURGICAL TEAM: Surgeons and Role: * Marcus Glass MD - Primary DATE OF SURGERY : 09/27/2023 PREOPERATIVE DIAGNOSIS: Right ureteral stone POSTOPERATIVE DIAGNOSIS: Right ureteral stone PROCEDURE: CYSTOSCOPY RETROGRADE PYELOGRAM - RIGHT URETEROSCOPY, LASER , INSERTION RIGHT URETERAL STENT, BASKET STONE EXTRACTION (R) ANESTHESIA: General INDICATION FOR PROCEDURE: 33 y/o M with right obstructing ureteral stone with uncontrolled pain who elected to proceed with ureteroscopy and laser lithotripsy for stone management. FINDINGS: - right proximal ureteral stone, dusted/fragmented - several other tiny right renal stones, dusted - right 6Fr x 26cm stent on strings placed OPERATIVE NOTE: The patient was identified in the preoperative bay where consent was obtained. Patient was then transported to the operating room table and placed in supine position. General anesthesia was induced and perioperative antibiotics where given. Patient was then moved to a dorsal lithotomy position. Allpressure points were padded. SCDs were on and functioning. The genitals were prepped and draped in the normal sterile fashion. A time out was performed, confirming the correct placement and procedure. We started the case by inserting a 22 [place] cystoscope atraumatically into the bladder. Cystoscopydid not reveal any bladder tumors or lesions. The ureteral orifices were in orthotopic position. The right ureteral orifice was identifed. A 0.035 inch guide wire was advanced to the level of the kidney using fluoroscopic guidance. Next, we switched to the semi-rigid ureteroscope, and this was advanced into the right ureteral orifice. The ureter was too tight to advance a semi-rigid. A 2nd wire was advanced into the renal pelvis. Five [place] open-ended catheter was advanced over the wire and retrograde pyelogram obtained. This showed stone in the proximal ureter with mild upstream hydronephrosis. The wire was replaced. An 11/13 [place] ureteral access sheath was advanced over the wire under fluoroscopic guidance. Thiscould only be advanced into the distal 1/3 of the ureter before resistance was met. Flexible ureteroscopy was then performed through the sheath. The stone was identified in the proximal ureter. A 272 micron holmium laser fiber was used to fragment the stone. There were several tiny fragments. A basket was used to extract 1 larger fragment. The dominant stone fragment then retropulsed into the renal pelvis. This could not be accessed with our distal sheath location. Wire was replaced in the renal pelvis and the access sheath removed. The ureteral scope was then readvanced over the wire without an access sheath under fluoroscopic guidance and into the renal pelvis. The larger fragment was identified. This was dusted using the laser. Salcedo pyeloscopy revealed several other tiny stones which were also dusted. Retrograde pyelogram was obtained and used as a road map. All calices were examined. There were no significant stone fragments remaining. The ureteral scope was slowly withdrawn and ureter examined. No occult distal ureteral stones or ureteral injuries were identified. Over the 0.035 inch guidewire, a 6Fr x 26 cm JJ ureteral stent was placed (right, with strings). Wenoted adequate stent curl in the renal pelvis as well as the bladder. Strings were secured using mastisol and steri-strips. The bladder was then drained and the cystoscope was removed. This concluded the case. There were no immediate complications. Anesthesia was reversed and the patient was transported to PACU in stable condition. Estimated Blood Loss: 5 mL Blood/Blood Products Transfused: None Complications: None Plan: - remove stent at home on 10/02/2023 - agree with admission to Internal Medicine postoperatively given acute kidney injury found on admission - follow-up outpatient as scheduled Condition on Discharge from the operating room was stable Marcus Glass MD Date: 09/27/2023 Time: 5:59 PM TEACHING ATTESTATION : I was present and directly participated in the entire procedure (including opening and closing). No resident involved in procedure. Followup Appointments: Future Appointments Date Time Provider Department Center 10/07/2023 9:00 AM [facility] [id number] [facility] US [facility] Main IM 10/07/2023 10:00 AM Marcus Gamboa MD [facility] 11C [facility] 10/14/2023 10:20 AM Marcus Gamboa MD [facility] 11C [facility] 11/14/2023 1:30 PM Amanda Macias MD CAM PAIN [facility] CAM 11/23/2023 3:30 PM Joaquín Abarca MD CAR CAM 8B Cardiology 02/15/2024 12:00 PM [facility] [id number] [facility] CT [id number] 02/15/2024 1:00 PM Leo Manzano MD [facility] [id number] [place] documented in this encounter Plan of Treatment Scheduled Orders Name Type Priority Associated Diagnoses Order Schedule Surgical pathology Pathology and Cytology Timed Flank pain Release Upon Ordering for 1 Occurrences starting 09/27/2023 documented as of this encounter Goals Goal Patient Goal Type Associated Problems Recent Progress Patient-Stated? 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) No Rita Landa, BRIA Note: Problem: Chronic [...] FL FLUOROSCOPY < 1 HOUR IP Routine 09/27/2023 5:57 PM CDT STONE ANALYSIS Routine 09/27/2023 5:37 PM CDT CYSTOSCOPY RETROGRADE PYELOGRAM - INSERTION URETERAL STENT 09/27/2023 4:47 PM CDT PAIN URINALYSIS AND REFLEX TO MICROSCOPIC AND CULTURE STAT 09/27/2023 2:29 PM CDT DRUGS OF ABUSE SCREEN, URINE WITHOUT CONFIRMATION STAT 09/27/2023 2:29 PM CDT URINALYSIS, MICROSCOPIC ONLY STAT 09/27/2023 2:[address] ABDOMEN PELVIS WO CONTRAST ED 09/27/2023 1:44 PM CDT EGFR STAT 09/27/2023 12:16 PM CDT DIFFERENTIAL AUTO STAT 09/27/2023 12: 16 PM CDT CBC WITH AUTO DIFFERENTIAL STAT 09/27/2023 12:16 PM CDT BASIC METABOLIC PANEL STAT 09/27/2023 12:16 PM CDT documented in this encounter Results * FL Fluoroscopy < 1 Hour (09/27/2023 5:57 PM CDT) Narrative [facility] - 09/27/2023 5:57 PM CDT The images from this study are not interpreted by Radiology. ??Please refer to the physician's procedure / OR operative note. us Marcus Glass MD IMG FLUOROSCOPY PROCED URES Final Result [facility] * Stone analysis (09/27/2023 5:37 PM CDT) Stone analysis Not Reported [facility] Source, Kid Stone Kidney [facility] Interp, Kid stone analysis See Footnote [facility] Comment:RESULT: 100% Calcium oxalate monohydrate. COMMENT See Footnote [facility] Comment: For stones containing calcium oxalate, calcium phosphate, and/or uric acid, a 24 hr urinary supersaturation test may help detect underlying risk factors for this type of stone formation and provide guidance for a stone prevention strategy. ADDITIONAL INFORMATION This test was developed and its performance characteristics determined by [facility] in a manner consistent with CLIA requirements. This test has not been cleared or approved by the U.S. Food and Drug Administration. Test Performed by: [facility] [place] [address] Equip Maint Eng: Chris Perez M.D. Ph.D.; CLIA# [id number] Stone 09/27/2023 5:37 PM CDT 09/28/2023 8:23 AM CDT us Gircelda Atkins MD LAB URINE ORDERABLES Final Result Performing Organization Address [facility] Co de Phone Number [facility] [address] Department [place] [address] [facility] * (ABNORMAL) Urinalysis, microscopic only (09/27/2023 2:29 PM CDT) WBC, ur 0-5 0 - 5 /HPF RBC, ur 3-5(A) 0 - 2 /HPF [facility] Epithelial cells, squamous, ur 1-5 0 - 5 /HPF [facility] Mucous, ur Present(A) [facility] Hyaline casts, ur 1-5 0 - 10 /LPF [facility] Culture Reflex Comment Reflex conditions for urine culture (WBC >10) not met. [facility] Urine 09/27/2023 2:29 PM CDT 09/27/2023 2:39 PM CDT us Heber Arroyo MD LAB URINE ORDERABLES Final Result [facility] [address] Department [place] [address] * (ABNORMAL) Drugs of Abuse Screen, Urine without Confirmation (09/27/2023 2:29 PM CDT) Amphetamine, ur Screen Positive, presumptive (A) CutOff 500ng/mL Comment: Interpretive Data - Amphetamines: ??Samples containing greater than 500 ng/mL d-methamphetamine ??or other cross-reacting amphetamine compounds are reported as positive. ??Amphetamine immunoassays are subject to significant false positive rates due to cross-reactivity of non-amphetamine drugs. Confirmatory testing required for definitive results. Current Interpretive Data was last reviewed 2022. Barbiturates, ur Not Detected CutOff 200ng/mL [facility] Comment: Interpretive Data - Barbiturates: ??Samples containing greater than 200 ng/mL secobarbital or other cross-reacting barbiturate compounds are reported as positive. ??False positive and false negative results are possible. Confirmatory testing required for definitive results. Current Interpretive Data was last reviewed 2022. Benzodiazepines, ur Not Detected CutOff 100ng/mL [facility] Comment: Interpretive Data - Benzodiazepines: ??Samples containing greater than 100 ng/mL nordiazepam or other cross-reacting compounds are reported as positive. False positive and false negative results are possible. Confirmatory testing required for definitive results. Current Interpretive Data was last reviewed 2022. Cannabinoids, ur Screen Positive, presumptive (A) CutOff 50 ng/mL [facility] Comment: Interpretive Data - Cannabinoids: ??Samples containing greater than 50 ng/mL delta-9 THC -COOH or other cross-reacting compounds are reported as positive. ??False positive and false negative results are possible. ??Confirmatory testing required for definitive results. Current Interpretive Data was last reviewed 2022. Cocaine, ur Not Detected CutOff 150ng/mL [facility] Comment: Interpretive Data - Cocaine: ??Samples containing greater than 150 ng/mL benzoylecgonine or other cross-reacting compounds are reported as positive. False positive and false negative results are possible. Confirmatory testing required for definitive results. Current Interpretive Data was last reviewed 2022. Fentanyl, Ur Not Detected CutOff 5 ng/mL [facility] Comment: Interpretive Data - Fentanyl: ?? Samples containing greater than 5 ng/mL norfentanyl, fentanyl, or other cross-reacting fentanyl compounds are reported as positive. False positive and false negative results are possible. Confirmatory testing required for definitive results. Current Interpretive Data was last reviewed 2023. Methadone, ur Not Detected CutOff 300ng/mL [facility] Comment: Interpretive Data - Methadone: ??Samples containing greater than 300 ng/mL d,l-methadone or other cross-reacting compounds are reported as positive. ??False positive and false negative results are possible. Confirmatory testing required for definitive results. Current Interpretive Data was last reviewed 2022. Opiates, ur Screen Positive, presumptive (A) CutOff 300ng/mL [facility] Comment: Interpretive Data - Opiates: ??Samples containing greater than 300 ng/mL morphine or other cross-reacting compounds are reported as positive. ??False positive and false negative results are possible. Confirmatory testing required for definitive results. Current Interpretive Data was last reviewed 2022. Oxycodone, ur Screen Positive, presumptive (A) CutOff 100ng/mL [facility] Comment: Interpretive Data - Oxycodone: ??Samples containing greater than 100 ng/mL oxycodone or other cross-reacting compounds are reported as ??positive. ??False positive and false negative results are possible. Confirmatory testing required for definitive results. Current Interpretive Data was last reviewed 2022. Phencyclidine, ur Not Detected CutOff 25 ng/mL [facility] Comment: Interpretive Data - Phencyclidine: ??Samples containing greater than 25 ng/mL phencyclidine or other cross-reacting compounds are reported as positive. ??False positive and false negative results are possible. Confirmatory testing required for definitive results. Current Interpretive Data was last reviewed 2022. Urine Creatinine 173 mg/dL [facility] Comment: Interpretive Data Urine Creatinine: < 10 mg/dL is extremely dilute = or > 10 but < 20 mg/dL is dilute = or > 20 mg/dL is normal Current Interpretive Data was last revised on 2017. Urine 09/27/2023 2:29 PM CDT 09/27/2023 2:40 PM CDT Narrative [facility] - 09/27/2023 3:12 PM CDT Drug of Abuse screening is performed by immunoassay for medical purposes only. ??This is not to be used for Pain Management purposes. us Heber Arroyo MD LAB URINE ORDERABLES Final Result [facility] [address] Department [place] [address] * (ABNORMAL) Urinalysis reflex to microscopic and culture Urine (09/27/2023 2:29 PM CDT) Color, ur Yellow Yellow Clarity, ur Clear Clear [facility] Specific gravity, ur 1.024 1.003 - 1.030 [facility] pH, urine 6.0 [facility] Comment: Interpretive Data ? Urine pH is affected by diet, medications, systemic acid-base disturbances, and renal tubular function. ??pH may affect urinary stone formation. ??For example, urine pH below 6.0 may help reduce the tendency for calcium phosphate stones and pH greater than 6.0 may reduce the tendency for uric acid stone formation. Source: [facility] Current Interpretive Data was last revised on 2017 Protein, ur ql 1+(A) Negative [facility] [facility] Glucose, ur ql Negative Negative [facility] Ketones, ur Negative Negative [facility] Bilirubin, ur Negative Negative [facility] Blood, ur Negative Negative [facility] Urobilinogen, ur <2.0 <2.0 mg/dL [facility] Nitrite, ur Negative Negative [facility] Leukocyte esterase, ur Negative Negative [facility] UA reflex comment Reflex to microscopic UA will be performed. [facility] Urine 09/27/2023 2:29 PM CDT 09/27/2023 2:40 PM CDT us Heber Arroyo MD LAB MICROBIOLOGY - GENERAL ORDERABLES Final Result [facility] [address] Department [place] [address] * CT Abdomen Pelvis WO Contrast (09/27/2023 1:44 PM CDT) Anatomical Region Laterality Modality Body N/A Computed Tomogra phy 09/27/2023 2:15 PM CDT Impressions 09/27/2023 2:15 PM CDT 1. ??Stranding around the proximal right ureter with a 4 mm stone within the proximal right ureter. Mild prominence of the upstream right ureter and renal pelvis without hydronephrosis. ?? 2. ??Multiple bilateral renal calculi. 3. ??Multiple known vascular findings not well evaluated on this noncontrast exam. Electronically signed by: Christy Dominguez DO Narrative 09/27/2023 2:15 PM CDT EXAM: ??CT ABDOMEN PELVIS WO CONTRAST, 09/27/2023 1:40 PM [...] CTA chest abdomen pelvis dated 09/26/2023 from [facility], CT dated 08/23/2023 from [facility] FINDINGS: ?? Mild bibasilar atelectasis. Partially visualized aortic stent graft extending from the superior [id number] in the thoracic aorta to the distal abdominal aorta. There is again dilation of the visualized descending thoracic aorta to 4.3 cm, not significantly changed from 09/06/2023. ??Known aortic dissection is not well evaluated on this noncontrast exam (and also is not fully imaged). ??The abdominal arteries arising from true versus false lumen also not well evaluated on this noncontrast exam. 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 ?? There is a poorly defined hypodense lesion in hepatic segment 4 which has previously been shown to be peripherally nodular enhancing with centripetal filling on 08/23/2023 and likely represents a hemangioma. The gallbladder is normal. ??There is no biliary ductal dilation. There are scattered calcified granulomas in the spleen. ??The pancreas is unremarkable. ??The adrenal glands are normal. There are multiple right renal stones measuring up to 4 mm. ??There are multiple left renal stones measuring up to 2 mm. ??There is stranding around the proximal right ureter with a 4 mm stone within the proximal right ureter. ??There is mild prominence of the upstream right ureter and renal pelvis without hydronephrosis. ??There is no left hydronephrosis. There is a tiny hiatal hernia. ??There is no dilation of small bowel. There is no acute colonic abnormality identified. ??The appendix is normal. The urinary bladder is unremarkable. ??Prostate is normal in appearance. ??There is no free intraperitoneal air or free fluid. There is no suspicious lymphadenopathy. No acute osseous or superficial soft tissue abnormality. Procedure Note Christy Melvin, DO - 09/27/2023 EXAM: CT ABDOMEN PELVIS WO CONTRAST, 09/27/2023 [...] CTA chest abdomen pelvis dated 09/26/2023 from [facility], CT dated 08/23/2023 from [facility] FINDINGS: Mild bibasilar atelectasis. Partially visualized aortic stent graft extending from the superior [id number] in the thoracic aorta to the distal [...] acute osseous or superficial soft tissue abnormality. IMPRESSION: 1. Stranding around the proximal right ureter with a 4 mm stone within the proximal right ureter. Mild prominence of the upstream right ureter and renal pelvis without hydronephrosis. 2. Multiple bilateral renal calculi. 3. Multiple known vascular findings not well evaluated on this noncontrast exam. Electronically signed by: Christy Dominguez DO Heber Arroyo MD IMG CT PROCEDURES Final Re sult * (ABNORMAL) eGFR (09/27/2023 12:16 PM CDT) eGFR 42(L) >=60 mL/min/1. 73 m2 Comment: Interpretive Data [...] interpretive data was last reviewed 2021. Blood 09/27/2023 12:1 6 PM CDT 09/27/2023 12:31 PM CDT Heber Arroyo MD LAB BLOOD ORDERABLES Final Result [facility] [address] Department [place] [address] * (ABNORMAL) Differential, auto (09/27/2023 12:16 PM CDT) Neutrophil abs 9.2(H) 1.5 - 6.5 K/cumm Imm gran abs 0.1 0.0 - 0.1 K/cumm [facility] Lymphocyte abs 1.0 0.8 - 3.3 K/cumm [facility] Monocyte abs 1.3(H) 0.2 - 0.8 K/cumm [facility] Eosinophil abs 0.0 0.0 - 0.5 K/cumm [facility] Basophil abs 0.1 0.0 - 0.1 K/cumm [facility] Neutrophil pct 78.9 % [facility] Comment: Interpretive Data Percent cell count reference ranges are not reported, since discordance with absolute values may lead to misinterpretation of CBC data. Current Interpretive Data was last revised on 2017. Imm gran pct 0.6 % [facility] Comment: Interpretive Data Percent cell count reference ranges are not reported, since discordance with absolute values may lead to misinterpretation of CBC data. Current Interpretive Data was last revised on 2017. Lymphocyte pct 8.9 % [facility] Comment: Interpretive Data Percent cell count reference ranges are not reported, since discordance with absolute values may lead to misinterpretation of CBC data. Current Interpretive Data was last revised on 2017. Monocyte pct 10.9 % [facility] Comment: Interpretive Data Percent cell count reference ranges are not reported, since discordance with absolute values may lead to misinterpretation of CBC data. Current Interpretive Data was last revised on 2017. Eosinophil pct 0.3 % [facility] Comment: Interpretive Data Percent cell count reference ranges are not reported, since discordance with absolute values may lead to misinterpretation of CBC data. Current Interpretive Data was last revised on 2017. Basophil pct 0.4 % [facility] Comment: Interpretive Data Percent cell count reference ranges are not reported, since discordance with absolute values may lead to misinterpretation of CBC data. Current Interpretive Data was last revised on 2017. Blood 09/27/2023 12:1 6 PM CDT 09/27/2023 12:30 PM CDT us Heber Arroyo MD LAB BLOOD ORDERABLES Final Result [facility] [address] Department [place] [address] * (ABNORMAL) CBC with auto differential (09/27/2023 12:16 PM CDT) WBC 11.7(H) 3.8 - 9.9 K/cumm Hgb 11.7(L) 13.0 - 17.5 g/dL [facility] Hct 36.9(L) 38.9 - 50.3 % [facility] Plt 267 150 - 400 K/cumm [facility] MPV 9.1 9.1 - 12.3 fL [facility] RBC 4.01(L) 4.30 - 5.80 M/cumm [facility] MCV 92.0 81.3 - 96.4 fL [facility] MCH 29.2 27.1 - 33.3 pg [facility] MCHC 31.7(L) 32.3 - 35.7 g/dL [facility] RDW CV 15.8(H) 11.1 - 14.9 % [facility] RDW SD 53.6(H) 35.7 - 48.1 fL [facility] NRBC abs 0.00 0.00 - 0.01 K/cumm [facility] Blood (Blood, Venous) 09/27/2023 12:16 PM CDT 09/27/2023 12:30 PM CDT us Heber Arroyo MD LAB BLOOD ORDERABLES Final Result [facility] [address] Department [place] [address] * (ABNORMAL) Basic metabolic panel (09/27/2023 12:16 PM CDT) Sodium 139 135 - 145 mmol/L Potassium, pl 4.1 3.3 - 4.9 mmol/L [facility] Chloride 105 97 - 110 mmol/L [facility] CO2 22 22 - 32 mmol/L [facility] Anion gap 12 2 - 15 mmol/L [facility] BUN 25 6 - 25 mg/dL [facility] Creatinine 2.12(H) 0.80 - 1.30 mg/dL [facility] Glucose 96 70 - 199 mg/dL [facility] Comment: Interpretive Data Fasting glucose >/= [...] 2022. Calcium 9.2 8.5 - 10.3 mg/dL [facility] Blood 09/27/2023 12:1 6 PM CDT 09/27/2023 12:31 PM CDT us Heber Arroyo MD LAB BLOOD ORDERABLES Final Result [facility] [address] Department [place] [address] documented in this encounter Visit Diagnoses Not on filedocumented in this encounter Admitting Diagnoses Diagnosis Ureteral calculi Calculus of ureter documented in this encounter Administered Medications Inactive Administered Medications - up to 3 most recent administrations Medication Order MAR Action Action Date Dose Rate Site acetaminophen (TYLENOL) tablet 1,000 mg 1,000 mg, oral, Once, On Tue09/27/23 at 1615, For 1 dose, Pre-Op, Indications: Pre-Emptive AnalgesiaIndications:Pre-Emptive Analgesia Given 09/27/2023 3:51 PM CDT 1,000 mg dimenhyDRINATE (DRAMAMINE) tablet 25 mg 25 mg, oral, Once, On Tue09/27/23 at 1615, For 1 dose, Pre-Op, Indications: Prevention of Nausea and VomitingIndications:Prevention of Nausea and Vomiting Given 09/27/2023 3:51 PM CDT 25 mg fentaNYL (SUBLIMAZE) preservative free injection 50 mcg 50 mcg, intravenous, Every 15 min PRN, 1st line for pain, Starting on Tue09/27/23 at 1224 Given 09/27/2023 12:31 PM CDT 50 mcg haloperidol (HALDOL) injection 1 mg 1 mg, intravenous, Administer over 5 Minutes, Once as needed, nausea, vomiting, Starting on Tue09/27/23 at 1747, For 1 dose, Phase I, If post-operative nausea and/or vomiting is not relieved by ondansetron within 30 minutes or if more than 8mg of ondansetron have been given within the last 6 hours. Given 09/27/2023 7:25 PM CDT 1 mg HYDROmorphone (DILAUDID) injection 0.2 mg 0.2 mg, intravenous, Administer over 2 Minutes, Every 10 min PRN, 1st line for pain, Starting on Tue09/27/23 at 1747, For 10 doses, Phase I, Switch to 2nd line analgesic order if pain is uncontrolled or increasing after 1 dose. Notify Anesthesiologist if total PACU dose reaches 2 mg and pain score 5/10 or more., Indications: PainIndications:Pain Given 09/27/2023 7:12 PM CDT 0.2 mg Given 09/27/2023 7:00 PM CDT 0.2 mg HYDROmorphone (DILAUDID) injection 0.4 mg 0.4 mg, intravenous, Administer over 2 Minutes, Every 10 min PRN, 2nd line for pain, Starting on Tue09/27/23 at 1747, For 5 doses, Phase I, May administer 10 mintes after 1st dose of 1st line analgesic agent for uncontrolled or increasing pain. Revert to 1st line dose if POSS of 3. Notify Anesthesiologist if total PACU dose reaches 2 mg and pain score 5/10 or more., Indications: PainIndications:Pain Given 09/27/2023 6:48 PM CDT 0.4 mg HYDROmorphone (DILAUDID) injection 1 mg 1 mg, intravenous, Administer over 2 Minutes, Every 1 hour PRN, 1st line for pain, may give q 30 minutes as needed, Starting on Tue09/27/23 at 1304, For 3 doses Given 09/27/2023 8:27 PM CDT 1 mg Given 09/27/2023 3:15 PM CDT 1 mg Given 09/27/2023 1:08 PM CDT 1 mg ioversoL (OPTIRAY 320) injection As needed, Starting on Tue09/27/23 at 1735, Intra-Op Given 09/27/2023 5:35 PM CDT 10 mL Surgical Site ketorolac (TORADOL) 15 mg/mL injection 15 mg 15 mg, intravenous, Once, On Tue09/27/23 at 1225, For 1 dose, For Adult IV push, administer over 15 seconds Given 09/27/2023 12:31 PM CDT 15 mg Lactated Ringer's (LR) infusion 30 mL/hr, intravenous, Continuous, Starting on Tue09/27/23 at 1615 Rate/Dose Verify 09/27/2023 4:47 PM CDT 30 mL/hr New Bag 09/27/2023 3:51 PM CDT 30 mL/hr 30 mL/hr morphine injection 6 mg 6 mg, intravenous, Administer over 4 Minutes, Every 1 hour PRN, pain, Starting on Tue09/27/23 at 1156, For 6 doses, Indications: PainIndications:Pain Given 09/27/2023 12:25 PM CDT 6 mg Given 09/27/2023 12:12 PM CDT 6 mg ondansetron (ZOFRAN) injection 4 mg 4 mg, intravenous, Administer over 2 Minutes, Once, On Tue09/27/23 at 1202, For 1 dose Given 09/27/2023 12:18 PM CDT 4 mg ondansetron (ZOFRAN) injection 4 mg 4 mg, intravenous, Administer over 2 Minutes, Every 6 hours PRN, nausea, vomiting, if not tolerating PO, Starting on Tue09/27/23 at 2006, Indications: Nausea and VomitingIndications:Nausea and Vomiting ondansetron (ZOFRAN) injection 4 mg 4 mg, intravenous, Administer over 2 Minutes, Once as needed, nausea, vomiting, Starting on Tue09/27/23 at 1747, For 1 dose, Phase I, Proceed to haloperidol if more than 8 mg of ondansetron have been given within the last 6 hours., Indications: Prevention of Post-Operative Nausea and VomitingIndications:Prevent ion of Post-Operative Nausea and Vomiting Given 09/27/2023 6:47 PM CDT 4 mg ondansetron ODT (ZOFRAN-ODT) disintegrating tablet 4 mg 4 mg, oral, Every 6 hours PRN, nausea, vomiting, Starting on Tue09/27/23 at 2006, Indications: Nausea and VomitingIndications:Nausea and Vomiting oxyCODONE (ROXICODONE) tablet 5 mg 5 mg, oral, As needed, 1st line for pain, Starting on Tue09/27/23 at 1747, For 2 doses, Phase I, 1st ORAL choice for pain, when the patient is able to tolerate PO medications. May repeat in 1 hour if pain is uncontrolled or increasing after 1st dose., Indications: PainIndications:Pain Given 09/27/2023 6:18 PM CDT 5 mg oxyCODONE (ROXICODONE) tablet 5 mg 5 mg, oral, Every 4 hours PRN, 2nd line for pain, Starting on Tue09/27/23 at 1759, May repeat in 1 hour if pain is uncontrolled or increasing. Max 2 doses within 1 dosing interval., Indications: PainIndications:Pain Given 09/27/2023 10:41 PM CDT 5 mg sodium chloride 0.9% bolus 1,000 mL 1,000 mL, intravenous, at 1,000 mL/hr, Administer over 1 Hours, Once, On Tue09/27/23 at 1120, For 1 dose New Bag 09/27/2023 12:16 PM CDT 1,000 mL 1000 mL/hr sodium chloride 0.9% bolus 1,000 mL 1,000 mL, intravenous, at 1,000 mL/hr, Administer over 1 Hours, Once, On Tue09/27/23 at 1157, For 1 dose New Bag 09/27/2023 2:34 PM CDT 1,000 mL 1000 mL/hr sodium chloride 0.9% flush 0.5-20 mL 0.5-20 mL, intra-catheter, Every 8 hours scheduled, First dose on Tue09/27/23 at 2200, Flush volume based on line type and size. Given 09/27/2023 8:28 PM CDT 10 mL sodium chloride 0.9% irrigation As needed, Starting on Tue09/27/23 at 1701, Intra-Op Given 09/27/2023 5:01 PM CDT 3,500 mL Surgical Site tamsulosin (FLOMAX) extended release capsule 0.4 mg 0.4 mg, oral, Nightly, First dose on Tue09/27/23 at 2100, Do not crush, chew, cut, dissolve, open or otherwise manipulate tablet/capsule. Given 09/27/2023 8:27 PM CDT 0.4 mg documented in this encounter Discontinued Medications Medication Sig Discontinue Reason Start Date End Da te acetaminophen 500 mg capsule Take 2 capsules (1,000 mg total) by mouth every 6 (six) hours Other 09/09/2023 09/27/2023 capsaicin (ZOSTRIX) 0.025 % cream Apply topically 2 (two) times a day Other 07/26/2023 09/27/2023 cyclobenzaprine (FLEXERIL) 10 mg tablet Take 1 tablet (10 mg total) by mouth 3 (three) times a day as needed for muscle spasms Therapy completed 08/03/2023 09/27/2023 ferrous sulfate 325 mg (65 mg of elemental iron) tablet Therapy completed 09/20/2023 09/27/2023 lidocaine (ASPERCREME) 4 % adhesive patch,medicated Place 2 patches on the skin daily Therapy completed 09/10/2023 09/27/2023 pregabalin (LYRICA) 75 mg capsuleIndications:Fibr omyalgia,Postoperative Acute Pain,neuropathic pain Take 1 capsule (75 mg total) by mouth 2 (two) times a day Therapy completed 09/27/2023 09/27/2023 documented as of this encounter Historical Medications * This list may reflect changes made after this encounter. capsaicin (ZOSTRIX) 0.025 % cream Apply 1 Application topically 2 (two) times a day as needed for pain acetaminophen (TYLENOL) 500 mg tablet Take 2 tablets (1,000 mg total) by mouth every 6 (six) hours as needed for pain, headaches or fever gabapentin (NEURONTIN) 600 mg tablet Take 1 tablet (600 mg total) by mouth 3 (three) times a day HYDROcodone-acet aminophen (NORCO) 5-325 mg per tabletIndication s:Pain Take 1 tablet by mouth every 6 (six) hours as needed for pain 4 added in this encounter Active and Recently Administered Medications Times are shown in CDT. Scheduled Medication Order 09/25/2023 09/26/2023 09/27/2023 acetaminophen (TYLENOL) tablet 1,000 mg (COMPLETED) 1,000 mg, oral, Once, On Tue09/27/23 at 1615, For 1 dose, Pre-Op, Indications: Pre-Emptive Analgesia 1551 (Given - Provid er: Tiffanie Waterman RN) dimenhyDRINATE (DRAMAMINE) tablet 25 mg (COMPLETED) 25 mg, oral, Once, On Tue09/27/23 at 1615, For 1 dose, Pre-Op, Indications: Prevention of Nausea and Vomiting 1551 (Given - Provid er: Tiffanie Waterman RN) ketorolac (TORADOL) 15 mg/mL injection 15 mg (COMPLETED) 15 mg, intravenous, Once, On Tue09/27/23 at 1225, For 1 dose, For Adult IV push, administer over 15 seconds 1231 (Given - Provid er: Chung Rivera RN) ondansetron (ZOFRAN) injection 4 mg (COMPLETED) 4 mg, intravenous, Administer over 2 Minutes, Once, On Tue09/27/23 at 1202, For 1 dose 1218 (Given - Provid er: Chung Rivera RN) sodium chloride 0.9% bolus 1,000 mL (COMPLETED) 1,000 mL, intravenous, at 1,000 mL/hr, Administer over 1 Hours, Once, On Tue09/27/23 at 1120, For 1 dose 1216 (New Bag - Prov ider: Catrachito Jordan RN)1419 (Stopped - Provider: Chung Rivera RN) sodium chloride 0.9% bolus 1,000 mL (COMPLETED) 1,000 mL, intravenous, at 1,000 mL/hr, Administer over 1 Hours, Once, On Tue09/27/23 at 1157, For 1 dose 1434 (New Bag - Prov ider: Chung Rivera RN)1534 (Due: Stopped - Provider: Chung Rivera RN) sodium chloride 0.9% flush 0.5-20 mL 0.5-20 mL, intra-catheter, Every 8 hours scheduled, First dose on Tue09/27/23 at 2200, Flush volume based on line type and size. 2027 (Given - Provid er: Brian Suero RN) tamsulosin (FLOMAX) extended release capsule 0.4 mg 0.4 mg, oral, Nightly, First dose on Tue09/27/23 at 2100, Do not crush, chew, cut, dissolve, open or otherwise manipulate tablet/capsule. 2026 (Given - Provid er: Brian Suero RN) Continuous Medication Order 09/25/2023 09/26/2023 09/27/2023 Lactated Ringer's (LR) infusion 30 mL/hr, intravenous, Continuous, Starting on Tue09/27/23 at 1615 1551 (New Bag - Prov ider: Tiffanie Waterman RN)1647 (Rate/Dose Verify - Provider: Sheryl Hebert CRNA) PRN Medication Order 09/25/2023 09/26/2023 09/27/2023 acetaminophen (TYLENOL) tablet 650 mg 650 mg, oral, Every 4 hours PRN, 1st line for pain, fever, fever greater than 38.3 C, Starting on Tue09/27/23 at 2006, Indications: Fever, Pain Carrier Fluids for Secondary Infusion - 0.9% Sodium Chloride 30 mL, intravenous, As needed, For priming tubing and/or flushing, Starting on Tue09/27/23 at 2006, 0-250 ml/hr to flush line after IV infusions when no maintenance IV ordered. Infuse 30mL at the same rate as the secondary infusion. Run as primary IV, not intended for KVO. fentaNYL (SUBLIMAZE) preservative free injection 50 mcg 50 mcg, intravenous, Every 15 min PRN, 1st line for pain, Starting on Tue09/27/23 at 1224 1231 (Given - Provid er: Chung Rivera RN)153 (JUL Hold - Provider: Automatic Transfer Provider - Reason: Patient not available)2006 (JUL Unhold - Provider: Automatic Transfer Provider) haloperidol (HALDOL) injection 1 mg (COMPLETED) 1 mg, intravenous, Administer over 5 Minutes, Once as needed, nausea, vomiting, Starting on Tue09/27/23 at 1747, For 1 dose, Phase I, If post-operative nausea and/or vomiting is not relieved by ondansetron within 30 minutes or if more than 8mg of ondansetron have been given within the last 6 hours. 1924 (Given - Provid er: Kaycee Ocampo RN) HYDROmorphone (DILAUDID) injection 0.2 mg (CANCELED) 0.2 mg, intravenous, Administer over 2 Minutes, Every 10 min PRN, 1st line for pain, Starting on Tue09/27/23 at 1747, For 10 doses, Phase I, Switch to 2nd line analgesic order if pain is uncontrolled or increasing after 1 dose. Notify Anesthesiologist if total PACU dose reaches 2 mg and pain score 5/10 or more., Indications: Pain 1853 (Not Given - Pr ovider: Kaycee Ocampo RN - Reason: Other - Comment: see 1847 documentation)1900 (Given - Provider: Kaycee Ocampo RN)1912 (Given - Provider: Kaycee Ocampo RN) HYDROmorphone (DILAUDID) injection 0.4 mg (CANCELED) 0.4 mg, intravenous, Administer over 2 Minutes, Every 10 min PRN, 2nd line for pain, Starting on Tue09/27/23 at 1747, For 5 doses, Phase I, May administer 10 mintes after 1st dose of 1st line analgesic agent for uncontrolled or increasing pain. Revert to 1st line dose if POSS of 3. Notify Anesthesiologist if total PACU dose reaches 2 mg and pain score 5/10 or more., Indications: Pain 1848 (Given - Provid er: Kaycee Ocampo RN) HYDROmorphone (DILAUDID) injection 1 mg (COMPLETED) 1 mg, intravenous, Administer over 2 Minutes, Every 1 hour PRN, 1st line for pain, may give q 30 minutes as needed, Starting on Tue09/27/23 at 1304, For 3 doses 1308 (Given - Provid er: Chung Rivera RN)1515 (Given - Provider: Jill Starr RN)153 (JUL Hold - Provider: Automatic Transfer Provider - Reason: Patient not available)2006 (JUL Unhold - Provider: Automatic Transfer Provider)2026 (Given - Provider: Brian Suero RN - Comment: pt request) ioversoL (OPTIRAY 320) injection (CANCELED) As needed, Starting on Tue09/27/23 at 1735, Intra-Op 1735 (Given - Provid er: Marcus Glass MD) morphine injection 6 mg 6 mg, intravenous, Administer over 4 Minutes, Every 1 hour PRN, pain, Starting on Tue09/27/23 at 1156, For 6 doses, Indications: Pain 1212 (Given - Provid er: Catrachito Jordan RN)1225 (Given - Provider: Chung Rivera RN - Comment: ok'ed by provider)153 (JUL Hold - Provider: Automatic Transfer Provider - Reason: Patient not available)2006 (MAR Unhold - Provider: Automatic Transfer Provider) ondansetron (ZOFRAN) injection 4 mg(Linked Group 1) 4 mg, intravenous, Administer over 2 Minutes, Every 6 hours PRN, nausea, vomiting, if not tolerating PO, Starting on Tue09/27/23 at 2006, Indications: Nausea and Vomiting ondansetron (ZOFRAN) injection 4 mg (COMPLETED) 4 mg, intravenous, Administer over 2 Minutes, Once as needed, nausea, vomiting, Starting on Tue09/27/23 at 1747, For 1 dose, Phase I, Proceed to haloperidol if more than 8 mg of ondansetron have been given within the last 6 hours., Indications: Prevention of Post-Operative Nausea and Vomiting 1846 (Given - Provid er: Kaycee Ocampo RN) ondansetron ODT (ZOFRAN-ODT) disintegrating tablet 4 mg(Linked Group 1) 4 mg, oral, Every 6 hours PRN, nausea, vomiting, Starting on Tue09/27/23 at 2006, Indications: Nausea and Vomiting oxyBUTYnin (DITROPAN) tablet 5 mg 5 mg, oral, 3 times daily PRN, bladder spasms, Starting on Tue09/27/23 at 1759 oxyCODONE (ROXICODONE) tablet 5 mg (CANCELED) 5 mg, oral, As needed, 1st line for pain, Starting on Tue09/27/23 at 1747, For 2 doses, Phase I, 1st ORAL choice for pain, when the patient is able to tolerate PO medications. May repeat in 1 hour if pain is uncontrolled or increasing after 1st dose., Indications: Pain 181 (Given - Provid er: Kaycee Ocampo RN) oxyCODONE (ROXICODONE) tablet 5 mg 5 mg, oral, Every 4 hours PRN, 2nd line for pain, Starting on Tue09/27/23 at 1759, May repeat in 1 hour if pain is uncontrolled or increasing. Max 2 doses within 1 dosing interval., Indications: Pain 224 (Given - Provid er: Brian Suero RN) sodium chloride 0.9% flush 0.5-20 mL 0.5-20 mL, intra-catheter, As needed, line care, Starting on Tue09/27/23 at 2006, Flush volume based on line type and size. Flush before and after each use. sodium chloride 0.9% irrigation (CANCELED) As needed, Starting on Tue09/27/23 at 1701, Intra-Op 1701 (Given - Provid er: Marcus Glass MD - Comment: 3,000 prn for [id number] prn on sterile field) Linked Groups Order Group 1: ondansetron ODT (ZOFRAN-ODT) disintegrating tablet 4 mgJump to med 4 mg, oral, Every 6 hours PRN, nausea, vomiting, Starting on Tue09/27/23 at 2006, Indications: Nausea and Vomiting Or ondansetron (ZOFRAN) injection 4 mgJump to med 4 mg, intravenous, Administer over 2 Minutes, Every 6 hours PRN, nausea, vomiting, if not tolerating PO, Starting on Tue09/27/23 at 2006, Indications: Nausea and Vomiting documented in this encounter Orders Medications Ordered That Gerardo ht Not Have Been Administered Count Last Ordered Date First Ordered Date acetaminophen (TYLENOL) tablet 650 mg 1 albuterol 2.5 mg /3 mL (0.08 3 %) nebulizer solution 2.5 mg 1 09/27/2023 Carrier Fluids for Secondary Infusion - 0.9% Sodium Chloride 09/27/2023 dextrose (D10W) 10% bolus 250 mL 2 09/27/19 dextrose (GLUTOSE) 40 % gel 15 g 09/27/19 diphenhydrAMINE (BENADRYL) 5 0 mg/mL injection 12.5 mg 09/27/2023 fentaNYL (SUBLIMAZE) preserv ative free injection 25 mcg 09/27/2023 fentaNYL (SUBLIMAZE) preserv ative free injection 50 mcg 09/27/2023 glucagon injection 1 mg 09/27/2023 insulin lispro (HumaLOG, ADM ELOG) 100 unit/mL injection 0-5 Units 09/27/2023 labetaloL (NORMODYNE,TRANDAT E) injection 5 mg 09/27/2023 lidocaine (PF) (XYLOCAINE) 1 0 mg/mL (1 %) preservative free injection 2-10 mg 09/27/2023 meperidine (DEMEROL) preserv ative free injection 12.5 mg 09/27/2023 naloxone (NARCAN) 0.4 mg/mL injection 0.04-0.4 mg 09/27/2023 ondansetron (ZOFRAN) injection 4 mg 1 09/26 ondansetron ODT (ZOFRAN-ODT) disintegrating tablet 4 mg 1 09/27/2023 oxyBUTYnin (DITROPAN) tablet 5 mg 1 024 racepinephrine (ASTHMANEFRIN ) 2.25 % nebulizer solution 0.5 mL 1 09/27/2023 sodium chloride 0.9% flush 0.5-20 mL 2 08/30 Nursing Count Last Ordered Date First Orde red Date DISCHARGE INSTRUCTIONS 1 09/27/2023 Admission Count Last Ordered Date First Orde red Date INITIATE OBSERVATION SERVICES 1 09/27/2023 Discharge Count Last Ordered Date First Orde red Date DISCHARGE PATIENT 1 09/27/2023 CORE MEASURES Count Last Ordered Date First Ord ered Date REASON FOR NO VTE PROPHYLAXI S - HOSPITAL ADMISSION - MEDICATIONS 1 09/27/2023 documented in this encounter Care Teams Warehouse Shift Supervisor Relationship Specialty Start Date End Date Carl Strickland MD [address] [facility] 1 [place] [address] PCP - General Internal Medicine 06/06/23 Leo Manzano MD [address] [facility] [address] [place] [address] Surgeon Vascular Surgery 05/16/23 documented as of this encounter
--- OUTSIDE RECORDS SUMMARY | 2024-05-30 05:35 | XMS_ITS | Encounter Summary ---
Author Organization [facility] Healthcare Address [address] [place] [address] Care Team Providers Care Bus Mechanic Name Role Phone Leo Manzano MD Unavailable [phone] Carl Strickland MD Primary Care Provider Reason for Referral * Diagnostic Imaging (Routine) - Closed Specialty Diagnoses / Procedures Referred By Contac t Referred To Contact Diagnoses Sacroiliitis (HCC) Procedures Imaging SI Joint Injection Bilateral (02079) Adrianne Adams MD PhD [address] [place] [address] Phone: tel:[phone] fax: [facility] 1 [place] [address] Referral ID Status Reason Start Date Expiration Date Visits Re quested Visits Authorized [id number] Closed 01/20/2024 02/18/2025 1 1 Reason for Visit * Reason Comments Procedure Back Pain * Diagnostic Imaging (Routine) - Closed Specialty Diagnoses / Procedures Referred By Contac t Referred To Contact Diagnoses Sacroiliitis (HCC) Procedures Imaging SI Joint Injection Bilateral (67732) Adrianne Adams MD PhD [address] [place] [address] Phone: tel: fax: [facility] 1 [facility] [place] [address] Referral ID Status Reason Start Date Expiration Date Visits Re quested Visits Authorized [id number] Closed 01/20/2024 02/18/2025 1 1 Encounter Details Date Type Department Care Team (Latest Contact Info) Description 02/28/2024 9:44 AM CDT - 02/28/2024 11:59 PM CDT Hospital Encounter [facility] [address] [facility] [address] [place] [address] Hilaria Blankenship MD PhD [address] [facility] [phone] [place] [address] Adrianne Adams MD PhD [address] [place], [place] [id number] Sacroiliitis (HCC) (Primary Dx) Discharge Disposition: Discharge to home or self care Social History Tobacco Use Types Packs/Day Years Used Date Smoking Tobacco: Never Smokeless Tobacco: Never Tobacco Cessation:Counseling Given: Not Answered Alcohol Use Standard Drinks/Week Comments Not Currently 0 (1 standard drink = 0.6 oz pur e alcohol) [facility] Utilities Answer Date Recorded In the past 12 months has [employer], gas, oil, or water divorce360 threatened to shut off services in your home? Patient declined 10/02/2023 Social Connection and Isolation Panel [NHANES] A nswer Date Recorded In a typical week, how many times do you talk on the phone with family, friends, or neighbors? Patient declined 10/02/2023 How often do you get togethe r with friends or relatives? Patient declined 10/02/2023 How often do you attend taoist or adventism serv ices? Patient declined 10/02/2023 [...] place to sleep or slept in a prison (including now)? Patient declined 10/02/2023 Personal Safety Answer Date Recorded Have you ever been in or are you currently in a harmful physical or emotional relationship or is someone making you feel afraid or unsafe? 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 Gender Identity Not on file Sexual Orientation Straight 06/12/2023 11 :43 PM UPSETTING MACHINE OPERATOR documented as of this encounter Last Filed Vital Signs Vital Sign Reading Time Taken Comments Blood Pressure 124/73 02/28/2024 11:36 AM CDT Pulse 52 02/28/2024 11:36 AM CDT Temperature 36.3 ??C (97.3 ??F) 02/28/2024 9:54 AM CD T Respiratory Rate 16 02/28/2024 11:36 AM CDT Oxygen Saturation 97% 02/28/2024 11:36 AM CDT Room air Inhaled Oxygen Concentration - - Weight 98 kg (216 lb) 02/28/2024 9:54 AM CDT Height 175.3 cm (5' 9 ) 02/28/2024 9:54 AM CDT Body Mass Index 31.9 02/28/2024 9:54 AM CDT documented in this encounter Discharge Instructions * Discharge Instructions* Rita Landa RN - 02/28/2024 9:55 AM CDT [facility] PATIENT EDUCATION POST-PROCEDURE INFORMATION SHEET After this procedure you may have: Dizziness Numbness in extremities Weakness in extremities These symptoms generally wear off in 6-8 hours, but are almost always gone by the next morning. A small amount of bruising, bleeding, swelling at the injection site(s). It is recommended you apply ice packs for 20 minutes every 1-2 hours for the first 24 hours. After 24 hours, if you still have discomfort, you may use a heating pad. Do not sit or lie on top of heating pad. Do not leave ice or heat on for more than 20 minutes at a time. Stand up slowly from a sitting or lying position today to prevent feeling dizzy or lightheaded. Limit activity today, which includes no driving. You may resume your normal activity and driving the next day after your procedure. You may take a shower. No tub bath, swimming pool, hot tub, etc., for 24 hours. You have received two (2) medications in your injection today. The first is a numbing medicine. This medicine may give you quick pain relief that may wear off before tomorrow. The second medicine is a steroid which may take 2-7 days to start working. You may also have some extra soreness at the injection site. After the numbing medicine wears off, your pain may return until the steroid starts working. If you have any questions or problems, please call the Pain Management Center at . For emergencies after 4:00 p.m., you should call the hospital clamp operator at and ask tospeak with the Pain Service doctor cleaning matron. [facility] ([facility]) DISCHARGE INSTRUCTIONS MEDICATIONS: [x] Continue your current home medications Meloxicam 7.5mg daily Wean off Gabapentin Day Morning Noon Bedtime Days 1-4 Gabapentin 300 mg Gabapentin 600 mg Gabapentin 600 mg Days 5-8 Gabapentin 300 mg Gabapentin 300 mg Gabapentin 600 mg Days 9-12 Gabapentin 300 mg Gabapentin 300 mg Gabapentin 300 mg Day Morning Noon Bedtime Day 13-16 Gabapentin 300 mg Gabapentin 300 mg Days 17-20 Gabapentin 300 mg [x] Notify your pharmacy for refill(s) 7 days before you are out of your medication. [] Opioid (Narcotic) Agreement signed and patient received copy. [] Side Effects of Opioid Medications given to patient PROCEDURE at today's visit: Bilateral sacroiliac joint injection DIET: [x] Resume normal diet [] See [facility] Post Discharge Procedure Information Sheet ACTIVITY: [] Resume normal activity [x] See [facility] Post Discharge Procedure Information Sheet REFERRALS: Physical Therapy [] [facility] ([phone]) [] [facility] (Graded Motor Imagery) [] [facility] ([phone]) Option 1 [] GMI (Graded Motor Imagery) [] [facility] ([phone]) [] Other: Behavior Medicine [] Pain Psychologist, [facility] Pain Psychology Please call to schedule appointment [phone] or [phone] Diagnostic Test(s): May get Radiographs performed in Radiation/X-Ray 6th floor, [address]. [] Please call to schedule MRI or CT scan at [phone] [] Please call to schedule EMG at [phone] EDUCATION provided on the following: [] Spinal Cord Stimulator Education and DVD. Vendor: FOLLOW UP APPOINTMENTS: [] Return as needed [x] Follow up appointment: 8-12 weeks We will contact you the next business day to obtain: [] An update on your condition [] Your Pain diary scores [] Procedure at your next visit : INSTRUCTIONS before your next procedure: [] See [facility] Pre-Procedure Information Sheet [] Do not eat or drink for six (6) hours before the time/date of the procedure. [] Inquire with your prescribing provider if ok to hold blood thinner for ( ) days before procedure. [] Blood work required 2 hours before procedure: [] Shrimp Boat Captain needed for next procedure [] Pre Procedure instructions will be sent through [employer] or by phone two working days prior to procedure. *Need help with [employer]? Call [phone]. Patient provided information and repeated back with understanding. If you need to reach us: For any questions about your procedure, please call the Pain Management Center [phone] (M-F) (8am-4pm) If you need urgent attention after 5 pm and weekends: Call the [facility] Observations Chief Scientist at [phone] and ask for the Pain Service doctor cleaning matron. * Attachments The following attachments cannot be sent through Care Everywhere. * Meloxicam (By mouth) (Kinyarwanda) documented in this encounter Medications at Time of Discharge acetaminophen (TYLENOL) 500 mg tablet Take 2 tablets (1,000 mg total) by mouth every 6 (six) hours as needed for pain, headaches or fever amLODIPine (NORVASC) 10 mg tablet Take 1 tablet (10 mg total) by mouth daily 30 tablet 08 28/27/20 25 aspirin 81 mg chewable tablet Take [...] 05/29/20 24 documented as of this encounter Ordered Prescriptions Prescription Sig Dispense Quantity Refills Last Filled Start Date End Date meloxicam (MOBIC) 7.5 mg tabletIndications: Sacroiliitis (HCC) Take 1 tablet (7.5 mg total) by mouth daily 30 tablet 02/28/2024 03/27/2024 documented in this encounter Discharge Disposition Disposition Code Departure Means Destination Discharge to home or self care documented in this encounter Progress Notes * Adrianne Adams MD PhD - 02/28/2024 10:30 AM CDT Pain Management Follow Up Note Patient Name: Eriberto Chau : 1990 Today's Date: 02/28/2024 PCP: Carl Strickland MD Referring: Adrianne Adams MD P* HPI: Mr. Eriberto Chau is a 33 [...] degree of success: 02/28/24: Bilateral SIJ injection INTERVAL HISTORY (02/28/2024) Patient returns to the clinic for a f/u visit for ongoing low back/buttock. Patient is scheduled for bilateral SIJ injection Today. Today, the pain is described as noted below: Pain Assessment Pain Score: 4 Pain Location: Back (Lumbar) Pain Radiating Towards: localized Pain Descriptors: Aching Pain Frequency: Constant/continuous Pain [...] Positive for back pain. Physical Exam Vitals: 02/28/24 0954 BP: 101/63 Pulse: 72 Resp: 16 Temp: 97.3 ??F (36.3 ??C) SpO2: 95% Weight: 98 kg (216 lb) Height: 175.3 [...] palpation of spinal processes. Paraspinal muscle tenderness. [id number] SPINE: Tenderness at the lumbosacral region. Positive [...] loading positive bilaterally SI joint tenderness, TANJA, Grant's, Compression tests positive bilaterally Hip tenderness: negative [...] IMPRESSION: Unremarkable MRI lumbar spine. Assessment Encounter Diagnosis Name Primary? Sacroiliitis (HCC) Yes The above note documents my personal evaluation of this patient. In addition, I have reviewed and confirmed with the patient and nurse the supportive information documented in today's scanned PatientHealth Questionnaire and Office Note. Plan 1. Intervention: Given the signs and symptoms of sacroiliitis, we will proceed with bilateral SIJ injection today R/B/A discussed, including but not limited to bleeding, infection, and possible nerve injury/paralysis. Alternatives (risks) include: medication managment (dependency), no intervention (increased pain). Patient understand risks/benefits/alternatives and agrees to proceed with injection. 2. Medications: a. Opioids: none b. Adjuvants: We reviewed his medication regimen. I prescribed meloxicam for sacroiliitis and arthritic pain. We will wean him off from gabapentin as he takes pregabalin as well. Pain Medications acetaminophen (TYLENOL) 500 mg tablet [...] tablet (50 mg total) by mouth nightly 3. Imaging: No further imaging needed at this current time. I reviewed his L- spine MRI from 09/08/23. 4. Referral: Encourage HEP 5. Follow-up: In 8-12 weeks for re-evaluation of the above regimen. Adrianne Adams MD PhD Clinical Fellow, Pain Management Department of Anesthesiology [facility] in [place] 02/28/24 Cosigned by Hilaria Blankenship MD PhD at 02/28/2024 5:05 PM CDT Associated attestation - Hilaria Blankenship MD PhD - 02/28/2024 5:05 PM CDT I have seen and examined the patient on 02/28/24. I agree with the findings and plan of care as documented in the resident's/fellow's note.. documented in this encounter Miscellaneous Notes * Op Note - Adrianne Adams MD PhD - 02/28/2024 10:30 AM CDT Patient ID Patient Name: Eriberto Chau : 1990 DOS: 02/28/2024 PCP: Carl Strickland MD Assessment Encounter Diagnosis Name Primary? Sacroiliitis (HCC) Yes Attending Physician Hilaria Blankenship M.D., Ph.D. Fellow Physician Adrianne Adams MD PhD Procedures NAME OF PROCEDURE: Bilateral Sacroiliac Joint Injection, with Fluoroscopy. INDICATION FOR PROCEDURE: Patient complained of bilateral low back pain in SI joint with provocation test. INFORMED CONSENT: After reviewing the procedure with the patient, informed consent to proceed with the injection was obtained. A procedural permit was also signed. DESCRIPTION OF PROCEDURE: The patient was placed in the prone position on the fluoroscopy table. Fluoroscopy was used to identify the needle entry point for the right sacroiliac joint injection, to reach the inferior aspect of the joint. The sacral and buttock area was prepped with Chlorhexidine solution and draped with sterile towels. The needle entry point was infiltrated with 1% lidocaine. A 3.5 in, 22, -gauge spinal needle was advanced to the posterior margin of the inferior aspect of the sacroiliac joint. Radiographic contrast (Omnipaque 300) for a total of 1ml was injected to ensure accurate placement of the needle in the posterior aspect of the joint. With the needle in the appropriate position, methylprednisolone, 40 mg, with ropivacaine, 8 mg, (total volume 3 ml) was injected. Procedure was repeated on the other side in the exact same fashion to the above description The procedure was well tolerated, there were no apparent complications, and the patient seemed to have significant relief of pain following the procedure. Dr. Blankenship was present for, and participated in, the entire procedure. DISPOSITION: Patient discharged home in stable condition. Adrianne Adams MD PhD Clinical Fellow, Pain Management Department of Anesthesiology [facility] in [place] 02/28/24 TEACHING ATTESTATION : I was present and directly participated in the entire procedure (including opening and closing). Cosigned by Hilaria Blankenship MD PhD at 02/28/2024 5:05 PM CDT Associated attestation - Hilaria Blankenship MD PhD - 02/28/2024 5:05 PM CDT I was present for the entire procedure. documented in this encounter Plan of Treatment Not on file documented as of this encounter Goals Goal Patient Goal Type Associated Problems Recent Progress Patient-Stated? Author CCM Chronic Pain Care Plan Chronic Care Management No change(05/16 2:51 PM UPSETTING MACHINE OPERATOR) No Rita Lnada, RN Note: Problem: Chronic Pain Goals: 1. Minimize further functional decline 2. Maximize quality of life 3. Control pain Strategies: - Activity/exercise program recommendation - Conservative stepwise pain medicine strategy with multi-disciplinary approach - Recommend healthy lifestyle strategies and compensatory methods as needed documented as of this encounter Procedures Procedure Name Priority Date/Time Associated Diagnosis Comments PAIN MGMT IMAGING SI JOINT BILATERAL ARTHROGRPHY Schedule Routine, Read Routine (OP Routine) 02/28/2024 11:27 AM CDT Sacroiliitis (HCC) documented in this encounter Results * Imaging SI Joint Injection Bilateral (96717) (02/28/2024 11:27 AM CDT) Narrative [facility] - 02/28/2024 11:28 AM CDT The images from this study are not interpreted by Radiology. ??Please refer to the physician's procedure / OR operative note. Adrianne Adams MD PhD IMG PAIN MGMT PROCEDURE S Final Result [facility] documented in this encounter Visit Diagnoses Diagnosis Sacroiliitis (HCC)- Primary Sacroiliitis, not elsewhere classified documented in this encounter Administered Medications Inactive Administered Medications - up to 3 most recent administrations Medication Order MAR Action Action Date Dose Rate Site iohexoL (OMNIPAQUE) 300 mg iodine/mL injection solution As needed, Starting on Tue02/28/24 at 1123, Intra-Op Given 02/28/2024 11:23 AM CDT 1 mL lidocaine (PF) (XYLOCAINE) 10 mg/mL (1 %) preservative free injection As needed, Starting on Tu02/28/24 at 1123, Intra-Op Given 02/28/2024 11:23 AM CDT 10 mL ROPivacaine (NAROPIN) 2 mg/mL (0.2 %) preservative free injection As needed, Starting on Tue02/28/24 at 1118, Intra-Op Given 02/28/2024 11:18 AM CDT 4 mL triamcinolone (KENALOG) 40 mg/mL injection As needed, Starting on Tue02/28/24 at 1118, Intra-Op Given 02/28/2024 11:18 AM CDT 80 mg documented in this encounter Discontinued Medications Medication Sig Discontinue Reason Start Date End Da te gabapentin (NEURONTIN) 600 mg tablet Take 1 tablet (600 mg total) by mouth 3 (three) times a day Alternate therapy 02/28/2024 oxyCODONE (ROXICODONE) 5 mg immediate release tabletIndications:Pain Take 1 tablet (5 mg total) by mouth every 4 (four) hours as needed for pain Therapy completed 10/07/2023 02/28/2024 documented as of this encounter Care Teams Bus Mechanic Relationship Specialty Start Date End Date Carl Strickland MD [address] [facility] 1 [place] [address] PCP - General Internal Medicine 06/06/23 Leo Manzano MD [address] [facility] [address] [place] [address] Surgeon Vascular Surgery 05/16/23 documented as of this encounter
--- OUTSIDE RECORDS SUMMARY | 2024-05-30 05:35 | XMS_ITS | Encounter Summary ---
Author Organization [facility] Address [address] [place] [address] Phone Care Team Providers Care Specialty Manufacturing Supervisor Name Role Phone Leo Manzano MD Unavailable [phone] Carl Strickland MD Primary Care Provider Reason for Visit * Reason Onset Date Comments lipid profile 01/02/2024 Encounter Details Date Type Department Care Team (Late st Contact Info) Description 01/02/2024 Telephone [facility] Cardiology [address] [facility] Medicine 8th [place] [address] [place] [id number] Joaquín Abarca MD [address] [facility] [address] [place] [address] lipid profile Social History Tobacco Use Types Packs/Day Years Used Date Smoking Tobacco: Never Smokeless Tobacco: Never Alcohol Use Standard Drinks/Week Comments Not Currently 0 (1 standard drink = 0.6 oz pur e alcohol) [facility] Utilities Answer Date Recorded In the past 12 months has e electric, gas, oil, or water company [...] declined 10/02/2023 How often do you attend mormon or buddhist serv ices? Patient declined 10/02/2023 Do you belong to any clubs o r organizations such as mormon groups, unions, fraternal or athletic groups, or [...] place to sleep or slept in a chcf (including now)? Patient declined 10/02/2023 Personal Safety Answer Date Recorded Have you ever been in or are you currently in a harmful physical or emotional relationship or is someone making you feel afraid or unsafe? 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 Gender Identity Not on file Sexual Orientation Straight 06/12/2023 11 :43 PM TELEVISION PRESENTER documented as of this encounter Miscellaneous Notes * Telephone Encounter - Idalia Dodson RN - 01/03/2024 4:16 PM CDT Portal message acknowledged with no response * Telephone Encounter - Idalia Dodson RN - 01/03/2024 9:48 AM CDT Portal message sent to the pt await his response Lab order mailed to pt Reminder set for follow up labs * Addendum Note - Idalia Dodson RN - 01/03/2024 9:47 AM CDTAddended by: IDALIA DODSON on: 01/03/2024 09:47 AM Modules accepted: Orders * Telephone Encounter - Idalia Dodson RN - 01/02/2024 5:29 PM CDT ----- Message from Joaquín Abarca MD sent at 01/02/2024 5:28 PM CDT ----- Order lipid profile at lab of his choice in 3 months documented in this encounter Plan of Treatment Scheduled Orders Name Type Priority Associated Diagnoses Orde r Schedule Lipid panel Lab Routine 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HCC) Hypercholesteremia Expected: 04/04/2024, Expires: 01/02/2025 documented as of this encounter Goals Goal Patient Goal Type Associated Problems Recent Progress Patient-Stated? Author CCM Chronic Pain Care Plan Chronic Care Management No change(05/16 2:51 PM TELEVISION PRESENTER) No Rita Landa RN Note: Problem: Chronic Pain Goals: 1. Minimize further functional decline 2. Maximize quality of life 3. Control pain Strategies: - Activity/exercise program recommendation - Conservative stepwise pain medicine strategy with multi-disciplinary approach - Recommend healthy lifestyle strategies and compensatory methods as needed documented as of this encounter Visit Diagnoses Diagnosis 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HCC)- Primary Hypercholesteremia Pure hypercholesterolemia documented in this encounter Care Teams Specialty Manufacturing Supervisor Relationship Specialty Start Date End Date Carl Strickland MD [address] [facility] [address] [place] [address] PCP - General Internal Medicine 06/06/23 Leo Manzano MD [address] [facility] [address] [place] [address] Surgeon Vascular Surgery 05/16/23 documented as of this encounter
--- OUTSIDE RECORDS SUMMARY | 2024-05-30 05:35 | XMS_ITS | Encounter Summary ---
Author Organization [facility] Healthcare Address [address] [place] [address] Care Team Providers Care Fmd Teacher Name Role Phone Leo Manzano MD Unavailable [phone] Carl Strickland MD Primary Care Provider Reason for Visit * Auth/Cert (Routine) Specialty Diagnoses / Procedures Referred By Contac t Referred To Contact Diagnoses Pyelonephritis Procedures NA Referral ID Status Reason Start Date Expiration Date Visits Re quested Visits Authorized [id number] 1 1 Encounter Details Date Type Department Care Team (Late st Contact Info) Description 10/04/2023 7:16 AM CDT Anesthesia Event [facility] Operating Room [address] [place] [address] Marina Chandler MD [facility] [facility] ANESTHESIA [address] Rahul Naranjo MD [address] [place] [address] Anesthesia Record Procedure Summary Procedure Name Responsible Anesthesiologist Anesthesia Start Time Anesthesia Stop Time CYSTOSCOPY RETROGRADE PYELOGRAM - INSERTION URETERAL STENT (Right: Ureter) Marina Chandler MD 10/04/23 0716 10/04/23 0758 Events Date Time Event Comment 10/04/2023 0708 0716 An Start 0718 In Room 0718 An Start Data 0723 An Induction The patient was reevaluated immediately before moderate or deep sedation use and before anesthesia induction. 0725 An LMA 0726 Anesthesia Ready 0732 Proc Start 0740 Proc Fin 0744 Airway Removed 0746 an stop data 0749 Out of Room 0758 Handoff to RN I completed my handoff to the receiving nurse during which we: 1. Patient identified 2. Responsible provider identified 3. Pertinent medical history reviewed 4. Procedure type and surgical course discussed 5. Intraoperative anesthetic management and any significant issues discussed 6. Expectations and concerns for postop period discussed 7. Questions solicited from receiving nurse 8. Patient disposition at the time of handoff: PACU 0758 An Stop Meds Name Total lidocaine (cardiac) syringe 2 % 5 mL propofol 150 mg fentaNYL 50 mcg midazolam 2 mg phenylephrine 100 mcg/mL 600 mcg ePHEDrine 50 mg ondansetron 4 mg dexamethasone 4 mg/ml 4 mg ceFAZolin 2,000 mg Lactated Ringer's (LR) infusion 500 mL * Agents Name O2 N2O Air Sevoflurane Inspired Sevoflurane * Blood No blood administrations on file. Lines, Drains, and Airways Type Details Placement Removal RETIRED Surgical Site 09/27/23; 1547; Pe nis; 05/01/24 (Retired LDA, Removed/Completed by [facility] with LDA Utility); 1213 (Retired LDA, Removed/Completed by [facility] with LDA Utility) 09/27/23 1547 by Lisa Desir RN 05/01/24 1213 by Discharge Provider, Automatic Ureteral Drain/Stent 09/27/23; 1732; Rig ht ureter; 6 Fr.; Yes; (got pulled out per pt) 09/27/23 1732 by Lisa Desir RN 10/04/23 0858 by Taryn Izquierdo RN Peripheral IV Placement Date: 10/02/23; Placement Time: 1334; Catheter Size: 20 G; Orientation: Anterior, Right; Location: Forearm; Site Prep: Chlorhexidine; Technique: Ultrasound guidance; Inserted by: silas fine; Insertion Attempts: 1; Patient Tolerance: Tolerated well; Removal Date: 01/20/24; Removal Reason: Removal date unknown/not present on admission 10/02/23 1335 by Silas Fine, EMT-P 01/20/24 0000 by Padmini Garcia, BRIA Urethral Catheter Placement Date: 10/02/23; Placement Time: 1713; Inserted by: Chung Ruff RN; Type: Coude; Balloon Size: 10 mL; Urine Returned: Yes; Removal Date: 10/04/23; Removal Time: 0734; Removal Reason: Disontinued in OR 10/02/23 1713 by Cayla Toussaint RN 10/04/23 0734 by Marni Sears RN Supraglottic Airway Placement Date: 10/04/23; Placement Time: 0733 (created via procedure documentation); Mask Ventilation: 0; Insertion Attempts: 1; Removal Date: 10/04/23; Removal Time: 0744 10/04/23 0733 by Franci Maloney CRNA 10/04/23 0744 by Franci Maloney CRNA Urethral Catheter Placement Date: 10/04/23; Placement Time: 0739; Inserted by: Dr. Otoniel Landa; Type: Double-lumen, Non-latex; Balloon Size: 10 mL; Urine Returned: Yes; Removal Date: 10/04/23; Removal Time: 0939; Removal Reason: Disontinued in OR 10/04/23 0739 by Marni Sears RN 10/04/23 0939 by Vivian Lee RN RETIRED Surgical Site 10/04/23; 0740; No ; Penis; 05/01/24 (Retired LDA, Removed/Completed by [facility] with LDA Utility); 1213 (Retired LDA, Removed/Completed by [facility] with LDA Utility) 10/04/23 0740 by Marni Sears RN 05/01/24 1213 by Discharge Provider, Automatic documented in this encounter Social History Tobacco Use Types Packs/Day Years Used Date Smoking Tobacco: Never Smokeless Tobacco: Never Alcohol Use Standard Drinks/Week Comments Not Currently 0 (1 standard drink = 0.6 oz pur e alcohol) [facility] Utilities Answer Date Recorded In the past 12 months has UGE, gas, oil, or water Trueffect threatened to shut off services in your home? Patient declined 10/02/2023 Social Connection and Isolation Panel [NHANES] A nswer Date Recorded In a typical week, how many times do you talk on the phone with family, friends, or neighbors? Patient declined 10/02/2023 How often do you get togethe r with friends or relatives? Patient declined 10/02/2023 How often do you attend oriental orthodox or sabianist serv ices? 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 Gender Identity Not on file Sexual Orientation Straight 06/12/2023 11 :43 PM ROPER OPERATOR documented as of this encounter OR Notes * Anesthesia Postprocedure Evaluation - Nick Dan MD - 10/04/2023 8:45 AM CDT Patient: Eriberto Chau Procedure Summary Date: 10/04/23 Room / Location: [facility] [place] [facility] / [facility] OPERATING ROOM Anesthesia Start: 715 Anesthesia Stop: 757 Procedure: CYSTOSCOPY RETROGRADE PYELOGRAM - INSERTION URETERAL STENT (Right: Ureter) Diagnosis: (Flank Pain) Surgeons: Otoniel Landa MD Responsible Provider: Marina Chandler MD Anesthesia Type: general ASA Status: 3 Anesthesia Type: general Last vitals BP 120/77 (BP Location: Left arm, Patient Position: Lying) Pulse 85 Temp 36.4 ??C (97.6 ??F) (Oral) Resp 16 SpO2 95% Anesthesia Post Evaluation Patient location during evaluation: PACU Patient participation: complete - patient participated Level of consciousness: follows simple commands and fully awake Pain management: adequate Airway patency: adequate Cardiovascular status: acceptable and hemodynamically stable Respiratory status: acceptable Hydration status: acceptable Pt is: normothermic Nausea/Vomiting status: none No notable events documented. * Anesthesia Procedure Notes - Franci Maloney CRNA - 10/04/2023 7:33 AM CDTAssociated Order(s): Airway Airway Patient location: OR Urgency: elective Indications for airway management: anesthesia Difficult airway: no Staff: Placed by: SHIREEN: Franci Maloney CRNA Airway prep: Preoxygenated: yes Patient position: sniffing Mask difficulty assessment: 0 - not attempted Sedation level during airway: GA Final airway details: Final airway type: supraglottic airway Final supraglottic airway: IGel Number of attempts: 1 * Anesthesia Preprocedure Evaluation - Marina Chandler MD - 10/03/2023 8:04 PM CDT Images from the original note were not included. Anesthesia Evaluation Eriberto Chau is a 33 y.o. male CYSTOSCOPY RETROGRADE PYELOGRAM - INSERTION URETERAL STENT (Right: Ureter) * No Diagnosis Codes entered * HISTORY Past Medical History Information obtained from: patient and chart. Information obtained during: In Person Neurological + Psychiatric history - anxiety and depression Pertinent negatives: CVA/stroke; TIA; CEA and carotid artery stent Cardiovascular + Hypertension + PAD/Aorta disease (Aortic dissection- 05/01/23) - prior percutaneous revascularization. Pertinent negatives: systolic/diastolic dysfunction w/o CHF ; valvular heart disease; valve replacement; negative for CHF; drug-eluting stent(s); bare metal stent(s); unknown stent(s) type and coronary angioplasty Respiratory + Current smoker (marajuana) Pertinent negatives: COPD; asthma and sleep apnea (JANELLE) Hepatic / Heme Pertinent negatives: liver disease Gastrointestinal Pertinent negatives: GERD Renal / + Renal disease + Nephrolithiasis Musculoskeletal/Pain + Chronic pain - back pain. + Chronic opioid use - daily. + Headaches - migraine headaches. Endocrine / Other + Obesity (BMI >30) Pertinent negatives: diabetes mellitus and thyroid disease Review of Systems + chronic pain Comments: Polysubstance abuse Patient Active Problem List Diagnosis Date Noted Weight loss 10/03/2023 Pyelonephritis 10/02/2023 Hypokalemia 10/02/2023 ANGI (acute kidney injury) (HCC) 10/02/2023 Syncope 10/02/2023 Ureteral calculi 09/27/2023 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HCC) 09/06/2023 Back pain at L4-L5 level 08/23/2023 PFO (patent foramen ovale) 07/05/2023 Ureteral stone 07/04/2023 Abdominal pain 07/04/2023 Other chronic pain 06/24/2023 Pseudoaneurysm following procedure ([facility] ([facility]) 06/24/2023 Infrarenal abdominal aortic aneurysm, without rupture ([facility]) 06/13/2023 Polysubstance abuse ([facility] ([facility]) 06/10/2023 Moderate malnutrition ([facility] ([facility]) 06/09/2023 Dissection of abdominal aorta ([facility] ([facility]) 06/03/2023 Urinary retention 05/16/2023 Epistaxis 05/13/2023 Pneumonia 05/13/2023 HTN (hypertension) 05/13/2023 Dissection of thoracoabdominal aorta ([facility] ([facility]) 05/02/2023 Dissection of aorta, unspecified portion of aorta ([facility]) 05/01/2023 Past Medical History: Diagnosis Date Abdominal pain Anxiety Aortic dissection ([facility]) Depression Hypertension Kidney stones Memory loss Past Surgical History: Procedure Laterality Date ABDOMINAL AORTIC ANEURYSM REPAIR Allergies Allergen Reactions Lisinopril Angioedema Amoxicillin Hives Med List Status: Pharmacy Complete Set By: Lashaun Stoner [facility] at 10/02/2023 2:58 PM Taking? Last Dose Start Date End Date Provider acetaminophen (TYLENOL) 500 mg tablet -- -- -- ProviderEli MD amitriptyline (ELAVIL) 25 mg tablet -- 09/09/23 -- Otoniel Echols MD Take 1 tablet (25 mg total) by mouth nightly amLODIPine (NORVASC) 10 mg tablet -- 06/26/23 06/25/24 Cristobal Chopra MD Take 1 tablet (10 mg total) by mouth daily aspirin 81 mg chewable tablet -- 05/17/23 05/16/24 Meron Parekh NP Take 1 tablet (81 mg total) by mouth daily capsaicin (ZOSTRIX) 0.025 % cream -- -- -- Eli Blandon MD dicyclomine (BENTYL) 20 mg tablet -- 09/09/23 09/08/24 Otoniel Echols MD Take 1 tablet (20 mg total) by mouth every 6 (six) hours as needed (For abdominal pain) ergocalciferol (VITAMIN D) 50,000 unit capsule -- 09/14/23 10/27/23 Otoniel Echols MD Take 1 capsule (50,000 Units total) by mouth once a week for 7 doses Notes: wednesdays gabapentin (NEURONTIN) 600 mg tablet -- -- -- Eli Blandon MD hydrALAZINE (APRESOLINE) 50 mg tablet -- 06/25/23 06/24/24 NaceancCristobal lee MD Take 1 tablet (50 mg total) by mouth 3 (three) times a day HYDROcodone-acetaminophen (NORCO) 5-325 mg per tablet -- -- -- Eli Blandon MD hydrocortisone (ANUSOL-HC) 2.5 % rectal cream -- 09/09/23 -- Otoniel Echols MD Insert into the rectum 2 (two) times a day as needed for hemorrhoids hyoscyamine (LEVSIN) 0.125 mg SL tablet -- 09/27/23 -- Marcus Glass MD Take 1 tablet (0.125 mg total) by mouth every 4 (four) hours as needed (Bladder spasms/discomfort) labetaloL (NORMODYNE,TRANDATE) 200 mg tablet -- 09/09/23 11/08/23 Otoniel Echols MD Take 2 tablets (400 mg total) by mouth 2 (two) times a day ondansetron ODT (ZOFRAN-ODT) 4 mg disintegrating tablet -- 05/16/23 -- Meron Parekh NP Take 1 tablet (4 mg total) by mouth every 8 (eight) hours as needed for nausea or vomiting oxyBUTYnin (DITROPAN) 5 mg tablet -- 09/27/23 -- Marcus Glass MD Take 1 tablet (5 mg total) by mouth 3 (three) times a day as needed (Bladder spasms/discomfort) QUEtiapine (SEROquel) 50 mg tablet -- 09/09/23 -- Otoniel Echols MD Take 1 tablet (50 mg total) by mouth nightly senna-docusate (PERICOLACE) 8.6-50 mg -- 05/16/23 -- Meron Parekh, TREE Take 2 tablets by mouth 2 (two) times a day To prevent constipation tamsulosin (FLOMAX) 0.4 mg extended release capsule -- 09/26/23 -- Provider, MD Eli Current Facility-Administered Medications: acetaminophen (TYLENOL) tablet 650 mg, 650 mg, oral, Q4H PRN, 650 mg at 10/03/23 1724 amitriptyline (ELAVIL) tablet 25 mg, 25 mg, oral, Nightly, 25 mg at 10/02/23 210 amLODIPine (NORVASC) tablet 10 mg, 10 mg, oral, Daily, 10 mg at 10/03/23 1018 capsaicin (ZOSTRIX) 0.025 % cream 1 Application, 1 Application, topical, BID PRN Carrier Fluids for Secondary Infusion - 0.9% Sodium Chloride, 30 mL, intravenous, PRN cefTRIAXone (ROCEPHIN) 2,000 mg/20 mL in sterile water (premix) 2,000 mg, 2,000 mg, intravenous, Q24H, 2,000 mg at 10/03/23 1634 dicyclomine (BENTYL) capsule 20 mg, 20 mg, oral, Q6H PRN enoxaparin (LOVENOX) syringe 40 mg, 40 mg, subcutaneous, Daily-2100, 40 mg at 10/02/23 210 gabapentin (NEURONTIN) tablet 600 mg, 600 mg, oral, TID, 600 mg at 10/03/23 1639 hydrALAZINE (APRESOLINE) tablet 50 mg, 50 mg, oral, TID, 50 mg at 10/03/23 1635 HYDROcodone-acetaminophen (NORCO) 5-325 mg per tablet 1 tablet, 1 tablet, oral, Q4H PRN, 1 tablet at 10/03/23 1016 hydrocortisone (ANUSOL-HC) 2.5 % rectal cream, , rectal, BID PRN HYDROmorphone (DILAUDID) injection 1 mg, 1 mg, intravenous, Q2H PRN, 1 mg at 10/03/23 1925 hyoscyamine (OSCIMIN) disintegrating tablet 125 mcg, 125 mcg, oral, Q4H PRN ibuprofen (ADVIL,MOTRIN) tablet 400 mg, 400 mg, oral, TID labetaloL (NORMODYNE,TRANDATE) tablet 400 mg, 400 mg, oral, BID, 400 mg at 10/03/23 1018 ondansetron ODT (ZOFRAN-ODT) disintegrating tablet 4 mg, 4 mg, oral, Q6H PRN, 4 mg at 10/03/23 0437OR ondansetron (ZOFRAN) injection 4 mg, 4 mg, intravenous, Q6H PRN, 4 mg at 10/02/232034 oxyBUTYnin (DITROPAN) tablet 5 mg, 5 mg, oral, TID PRN polyethylene glycol (MIRALAX) packet 17 g, 17 g, oral, Daily PRN potassium chloride 20 mEq in sodium chloride 0.9% 250 mL IVPB, 20 mEq, intravenous, Q2H, Last Rate:130 mL/hr at 10/03/23 1847, 20 mEq at 10/03/231846 prochlorperazine (COMPAZINE) injection 5 mg, 5 mg, intravenous, Q6H PRN, 5 mg at 10/03/23 09 QUEtiapine (SEROquel) tablet 50 mg, 50 mg, oral, Nightly, 50 mg at 10/02/232106 ramelteon (ROZEREM) tablet 8 mg, 8 mg, oral, Nightly PRN, 8 mg at 10/02/232106 senna-docusate (PERICOLACE) 8.6-50 mg per tablet 2 tablet, 2 tablet, oral, BID, 2 tablet at 10/03/23 1016 sodium chloride 0.9% flush 0.5-20 mL, 0.5-20 mL, intra-catheter, Q8H SUSAN, 10 mL at 10/03/23 1500 sodium chloride 0.9% flush 0.5-20 mL, 0.5-20 mL, intra-catheter, PRN tamsulosin (FLOMAX) extended release capsule 0.4 mg, 0.4 mg, oral, Daily, 0.4 mg at 10/03/23 1017 Social History Tobacco Use Smoking Status Never [...] Sister Depression Brother Anxiety disorder Brother Vitals: 10/03/23 1635 10/03/23 1700 10/03/23 1939 BP: 132/79 94/66 Pulse: 107 103 Resp: 20 Temp: (!) 39.3 ??C (102.8 ??F) (!) 39.2 ??C (102.6 ??F) SpO2: 94% PT: 09/06/2023: 12.3 sec INR: 09/06/2023: 1.08 APTT: 09/06/2023: 33 sec Hgb A1C: No results found for requested labs within last 30 days. CBC RBC: 10/03/2023: 3.35 M/cumm (L) RDW: No results found for requested labs within last 30 days. MCHC: 10/03/2023: 32.2 g/dL (L) MCH: 10/03/2023: 29.9 pg MCV: 10/03/2023: 92.8 fL Hct: 10/03/2023: 31.1 % (L) Hgb: 10/03/2023: 10.0 g/dL (L) WBC: 10/03/2023: 6.3 K/cumm MPV: 10/03/2023: 9.3 fL Platelets: 10/03/2023: 230 K/cumm RDW CV: 10/03/2023: 15.0 % (H) RDW Sd: 10/03/2023: 50.0 fL (H) BMP Glucose: 10/03/2023: 95 mg/dL Calcium: 10/03/2023: 8.4 mg/dL (L) Sodium: 10/03/2023: 134 mmol/L (L) Potassium: 10/03/2023: 3.3 mmol/L CO2: 10/03/2023: 22 mmol/L Chloride: 10/03/2023: 100 mmol/L BUN: 10/03/2023: 15 mg/dL Creatinine: 10/03/2023: 1.15 mg/dL DOS Physical Exam Medical history, medications, and allergies reviewed. Attestation: This PAT evaluation 10/04/2023. Airway Exam: Mallampati: II Cervical ROM: FROM TM distance: >4 Cardiovascular Exam: Rate: regular Rhythm: regular Dental Exam: Appears intact Current state: Patient's current state is cooperative. Anesthesia Plan ASA 3 My patient is approved for the Anesthesia Controlled Medication protocol when under care of a EYEGLASS LENS GENERATOR Planned anesthesia: General Team communication plan: LMA Induction: Induction: intravenous. Postoperative Plan: Postoperative administration opioids intended. No postoperative mechanical ventilation intended. Patient's planned disposition post procedure is Floor. Informed Consent: Discussed plan with EYEGLASS LENS GENERATOR. Anesthesia plan and risks discussed with patient. Consent and Attending signature: I and/or my designee have discussed the anesthesia plan, benefits, possible alternatives, parental presence at time of induction (if indicated), and clinically relevant risks that may include dental injury, unintentional awareness, and/or other complications. The patient and/or parent/legal guardian understand, and agree to proceed. All questions answered. documented in this encounter Plan of Treatment Not on file documented as of this encounter Goals Goal Patient Goal Type Associated Problems Recent Progress Patient-Stated? Author CCM Chronic Pain Care Plan Chronic Care Management No change(05/16 2:51 PM ROPER OPERATOR) No Rita Landa RN Note: Problem: Chronic Pain Goals: 1. Minimize further functional decline 2. Maximize quality of life 3. Control pain Strategies: - Activity/exercise program recommendation - Conservative stepwise pain medicine strategy with multi-disciplinary approach - Recommend healthy lifestyle strategies and compensatory methods as needed documented as of this encounter Procedures Procedure Name Priority Date/Time Associated Diagnosis Comments NV AN PROCEDURE PLACEHOLDER Routine 10/04/2023 7:33 AM CDT NV AN ELECTIVE SUPRAGLOTTIC AIRWAY Routine 10/04/2023 7:33 AM CDT documented in this encounter Results * NV AN ELECTIVE SUPRAGLOTTIC AIRWAY, NV AN PROCEDURE PLACEHOLDER (10/04/2023 7:33 AM CDT) Narrative Franci Maloney CRNA - 10/04/2023 7:33 AM CDT Franci Maloney CRNA ? 10/04/2023 ??7:33 AM Airway Patient location: OR Urgency: elective Indications for airway management: anesthesia Difficult airway: no Staff: Placed by: SHIREEN: Franci Maloney CRNA Airway prep: Preoxygenated: yes Patient position: sniffing Mask difficulty assessment: 0 - not attempted Sedation level during airway: GA Final airway details: Final airway type: supraglottic airway Final supraglottic airway: IGel Number of attempts: 1 us Marina Chandler MD ANESTHESIA ORDERABLES Final R esult documented in this encounter Visit Diagnoses Not on filedocumented in this encounter Administered Medications Inactive Administered Medications - up to 3 most recent administrations Medication Order MAR Action Action Date Dose Rate Site ceFAZolin (ANCEF) injection intravenous, Administer over 3 Minutes, As needed, Starting on Tue10/04/23 at 0729, Anesthesia Intra-op Given 10/04/2023 7:29 AM CDT 2,000 mg dexAMETHasone (DECADRON) 4 mg/mL injection intravenous, Administer over 2 Minutes, As needed, Starting on Tue10/04/23 at 0723, Anesthesia Intra-op Given 10/04/2023 7:23 AM CDT 4 mg ePHEDrine injection intravenous, Administer over 5 Minutes, As needed, Starting on Tue10/04/23 at 0735, Anesthesia Intra-op Given 10/04/2023 7:42 AM CDT 10 mg Given 10/04/2023 7:39 AM CDT 20 mg Given 10/04/2023 7:37 AM CDT 10 mg fentaNYL (SUBLIMAZE) preservative free injection intravenous, As needed, Starting on Tue10/04/23 at 0716, Anesthesia Intra-op Given 10/04/2023 7:16 AM CDT 50 mcg Lactated Ringer's (LR) infusion 30 mL/hr, intravenous, Continuous, Starting on Tue10/04/23 at 0715, Pre-Op Restarted 10/04/2023 7:39 AM CDT Rate/Dose Verify 10/04/2023 7:16 AM CDT 30 mL/h r New Bag 10/04/2023 7:02 AM CDT 30 mL/hr 30 mL/hr lidocaine (cardiac) (XYLOCAINE) preservative free injection intravenous, As needed, Starting on Tue10/04/23 at 0723, Anesthesia Intra-op, Indications: Ventricular ArrhythmiasIndications:Ventricular Arrhythmias Given 10/04/2023 7:23 AM CDT 5 mL midazolam (VERSED) 1 mg/mL preservative free injection intravenous, Administer over 2 Minutes, As needed, Starting on Tue10/04/23 at 0716, Anesthesia Intra-op Given 10/04/2023 7:16 AM CDT 2 mg ondansetron (ZOFRAN) injection intravenous, Administer over 2 Minutes, As needed, Starting on Tue10/04/23 at 0721, Anesthesia Intra-op Given 10/04/2023 7:21 AM CDT 4 mg phenylephrine (KARLI-SYNEPHRINE) 1 mg/10 mL (100 mcg/mL) in sodium chloride 0.9% (premix) intravenous, As needed, Starting on Tue10/04/23 at 0727, Anesthesia Intra-op Given 10/04/2023 7:42 AM CDT 100 mcg Given 10/04/2023 7:31 AM CDT 200 mcg Given 10/04/2023 7:30 AM CDT 200 mcg propofoL (DIPRIVAN) 10 mg/mL IV intravenous, As needed, Starting on Tue10/04/23 at 0723, Anesthesia Intra-op New Bag 10/04/2023 7:23 AM CDT 150 mg documented in this encounter Care Teams Fmd Teacher Relationship Specialty Start Date End Date Carl Strickland MD [address] [facility] [address] [place] [address] PCP - General Internal Medicine 06/06/23 Leo Manzano MD [address] [facility] [place] [id number] Surgeon Vascular Surgery 05/16/23 documented as of this encounter
--- OUTSIDE RECORDS SUMMARY | 2024-05-30 05:35 | XMS_ITS | Encounter Summary ---
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 Name Role Phone Leo Manzano MD Unavailable [phone] Carl Strickland MD Primary Care Provider Reason for Visit * Reason Comments Post-op Problem Blood in Urine * Auth/Cert (Routine) Specialty Diagnoses / Procedures Referred By Contac t Referred To Contact Diagnoses Pyelonephritis Procedures NA Referral ID Status Reason Start Date Expiration Date Visits Re quested Visits Authorized [id number] 1 1 Encounter Details Date Type Department Care Team (Late st Contact Info) Description 10/04/2023 7:30 AM CDT - 10/04/2023 8:55 AM CDT Surgery [facility] Operating Room [address] [place] [id number] Otoniel Landa MD [address] [place] [address] CYSTOSCOPY RETROGRADE PYELOGRAM - INSERTION URETERAL STENT Surgery Details Date/Time Status Location OR Service Patient Class Case Class Case Type Trauma Case? 10/04/2023 7:30 AM Posted [facility] OPERATING ROOM CYSTO Urology Emergency Urgent - 24 hours Panel 1 Procedure LRB Anes Op Region Wound Class Comments CYSTOSCOPY RETROGRADE PYELOGRAM - INSERTION URETERAL STENT Right General Ureter Class II - Clean Contaminated OK'd by Garo Ghosh and Anesthesia Surgeon Surgeon Role Service Panel Otoniel Landa MD Primary Urology 1 documented in this encounter Social History Tobacco Use Types Packs/Day Years Used Date Smoking Tobacco: Never Smokeless Tobacco: Never Alcohol Use Standard Drinks/Week Comments Not Currently 0 (1 standard drink = 0.6 oz pur e alcohol) [facility] Utilities Answer Date Recorded In the past 12 months has e [employer] gas, oil, or water [employer] threatened to shut off services in your home? Patient declined 10/02/2023 Social Connection and Isolation Panel [NHANES] A nswer Date Recorded In a typical week, how many times do you talk on the phone with family, friends, or neighbors? Patient declined 10/02/2023 How often do you get togethe r with friends or relatives? Patient declined 10/02/2023 How often do you attend mandaeism or yazidi serv ices? Patient declined 10/02/2023 Do you belong to any clubs o r organizations such as mandaeism groups, unions, fraternal or athletic groups, or [...] place to sleep or slept in a assisted (including now)? Patient declined 10/02/2023 Personal Safety Answer Date Recorded Have you ever been in or are you currently in a harmful physical or emotional relationship or is someone making you feel afraid or unsafe? 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 Gender Identity Not on file Sexual Orientation Straight 06/12/2023 11 :43 PM TEST CAR DRIVER documented as of this encounter Last Filed Vital Signs Vital Sign Reading Time Taken Comments Blood Pressure 123/84 10/04/2023 8:45 AM CDT Pulse 90 10/04/2023 8:45 AM CDT Temperature 36.7 ??C (98 ??F) 10/04/2023 8:45 AM CDT Respiratory Rate 11 10/04/2023 8:45 AM CDT Oxygen Saturation 96% 10/04/2023 8:45 AM CDT Inhaled Oxygen Concentration - - Weight 94.8 kg (208 lb 14.4 oz) 10/02/2023 8:54 PM CDT Height 175.3 cm (5' 9 ) 10/02/2023 8:54 PM CDT Body Mass Index 30.85 10/02/2023 8:54 PM CDT documented in this encounter Discharge Summaries * Doron Boudreaux MD - 10/04/2023 2:15 PM CDT Inpatient Discharge Summary Patient Name - Eriberto Bangura Patient Age - 33 yrs Patient - [id number] [facility] - [id number] Document Creation Date: 10/04/2023 Admitting Provider, : Otoniel Landa MD Discharge Provider, MD: Radha att. providers found Primary Care Physician at Discharge: Carl Strickland MD [phone] Admission Date: 10/02/2023 Discharge Date/time: 10/04/2023 Admission Location: [facility] Hospital LOS - LOS: 2 days DETAILS [...] says he has a critical family event today.I gave an order for bmp 10/05 or and he assures me he will get this and f/u with PCP Dr. Torres office will call to [facility] uro follow up Discharge Details Physical Exam [...] Your Medications These medications were sent to [facility]/pharmacy #[id number] - [place], [place] - [address] [facility] [address] [facility] [address] cefdinir 300 mg capsule HYDROcodone-acetaminophen 5-325 mg [...] Time Provider Department Center 10/07/2023 9:00 AM [facility] BJUS3 BJN US BJ Main IMG 10/07/2023 10:00 AM Marcus Gamboa MD URO CAM 11C CABRAL 10/14/2023 10:20 AM Marcus Gamboa MD URO CAM 11C CABRAL 11/14/2023 1:30 PM Amanda Macias MD CAM PAIN [facility] 11/23/2023 3:30 PM Joaquín Abarca MD CAR CAM 8B Cardiology 02/15/2024 12:00 PM [facility] WCHCT[facility] BJWCHMainIMG 02/15/2024 1:00 PM Leo Manzano MD [facility] [id number] CABRAL Please schedule an appointment with the following provider(s): No follow-up provider specified. ANCILLARY INFORMATION Other Procedures & Diagnostic Tests: Transthoracic Echo (TTE) Complete W Doppler/CF Result Date: 10/03/[address] [address] ECHOCARDIOGRAM Patient Name: ERIBERTO BANGURA I : 1990 Study Date: 10/03/2023 2:55:30 PM Gender: M Tech: Location: [address] Ref Provider: RADHA DIXON Height(Cm): 175 [...] cm LA Dimension 2D 3.32 [ 3.00 -4.00 ] cm SUZANNE V max 3.2 cm2 AoR Diam 2D 3.42 [ 3.10 - 3.70 ] cm SUZANNE VTI 3.3 cm2 TAPSE 2.38 [ >= 1.71 ] cm LVOT Peak Shaun 1.54 [ 0.70 - 1.10 ] m/s LVOT Diam 2.1 cm LVOT Peak PG 10 mmHg LVOT VTI 24.8cm MV Peak PG 5 mmHg MV Mean PG 3 mmHg MV E Peak Shaun 1.2 [ 0.6 - 1.3 ] m/s MV A Peak Shaun 1.1 [ 1.0- 1.2 ] m/s MV PHT 75.9 [ 20.0 - 100.0 ] ms MV Decel Time 149.1 [ 104.0 - 258.0 ] ms MVA PHT 2.9 msMV E/A Ratio 1.1 PV Peak Shaun 1.4 [ 0.4 - 0.8 ] m/s PV Peak PG 7 mmHg Lat E` Shaun 0.15 [ 0.10 - 0.15] m/s Sept E' Shaun 0.08 [ 0.08 - 0.15 ] m/s E/E` 8.00 RV S' 0.16 m/s Measurement Value Normal Range Measurement Value Normal Range 2D/M Mode Doppler - [...] Ventricle: Normal right ventricular systolic function. Normal rightventricular size. Left Atrium: The left atrium is normal in size. Right Atrium: The right atrium isnormal in size. Atrial Septum: Normal appearing atrial septum. Mitral Valve: Normal mitral valve appearance and function. Aortic Valve: Normal aortic valve appearance and function. Aortic valve appears tricuspid in configuration. Tricuspid Valve: Normal tricuspid valve appearance and function. Pulmonic Valve: The pulmonic valve is not seen. Pericardium: Normal appearing pericardial thickness. No s ignificant pericardial effusion. Aortic Root and Aorta: Normal caliber aortic root. Aortic Arch: The aortic arch is poorly visualized. IVC: The IVC is not seen. CONCLUSIONS: 1. Mild left ventricular systolic dysfunction. Ejection Fraction is measured at (Simpsons) 50 %. Upper limits of normal left ventricular chamber size. Mild concentric left ventricular hypertrophy. Electronically Signed By: Deandre Meza MD, [facility] 2023-10-03 16:50:[address] Abdomen Pelvis W [...] M.D. Recent Labs: Recent Labs Lab Units 10/04/23 0540 10/03/23 0801 10/02/23 1337 WBC K/cumm 5.7 6.3 7.5 HEMOGLOBIN g/dL 10.4* 10.0* 10.7* HEMATOCRIT % 32.9* 31.1* 32.2* PLATELETS K/cumm 236 230 259 Recent Labs Lab Units 10/04/23 0510/03/23 0801 10/02/23 1337 WBC K/cumm 5.7 6.3 [...] 15 27* CREATININE mg/dL 1.56* 1.15 1.70* TLM-KAA-DEMFFGW mL/min/1.73 m2 61 87 55* GLUCOSE mg/dL 96 95 93 CALCIUM mg/dL 8.6 8.4* 9.2 ALBUMIN g/dL -- -- 4.3 Recent Labs Lab Units 10/04/23 0510/03/23 0801 10/02/23 1337 SODIUM mmol/L 140 134* [...] Units/L 10 Recent Labs Lab Units 10/04/23 0510/03/23 0801 MAGNESIUM mg/dL 2.1 1.9 Lab Results Component Value Date GLUCOSE 96 10/04/2023 GLUCOSE 95 10/03/2023 GLUCOSE 93 10/02/2023 Implant: Implants Graft [employer] Stent Graft Aortic Covered Tag [id number] Eptfe Nitinol [id number] - [id number] - [id number] - Implanted Aorta Inventory item: [employer] Stent Graft Aortic Covered Tag [id number] Eptfe Nitinol [id number] Model/Cat number: [id number] Serial number: [id number] Forensics Analyst: [employer] Device identifier: [id number] Device identifier type: GS1 As of 05/02/2023 Status: Implanted Stent [employer] Stent Graft Thoracic Side Branch Tag [id number] Eptfe Nitinol [id number] - [id number] - [id number] - Implanted (Left) Subclavian Inventory item: [employer] Stent Graft Thoracic Side Branch Tag [id number] Eptfe Nitinol [id number] Model/Cat number: [id number] Serial number: [id number] Forensics Analyst: [employer] Size: 16mm side branch Device identifier: [id number] Device identifier type: GS1 As of 05/02/2023 Status: Implanted [employer] Graft Stent [place] Tag L20cm Od37mm Thoracic Active Control [id number] - [id number] - Implanted Descending Thoracic Aorta Inventory item: [employer] Graft Stent [place] Tag L20cm Od37mm Thoracic Active Control [id number] Model/Cat number: [id number] Serial number: [id number] Forensics Analyst: [employer] Device identifier: [id number] Device identifier type: GS1 As of 06/05/2023 Status: Implanted [employer] Zenith 36mm 20-30mm 16mm 180mm 9 Dissection Introducer Sheath [id number] - [id number] Implanted Descending Thoracic Aorta Inventory item: [employer] ZENITH 36MM 20-30MM 16MM 180MM 9 DISSECTION INTRODUCER SHEATH [id number] Model/Cat number: [id number] Forensics Analyst: [employer] Lot number: [id number] Device identifier: [id number] Device identifier type: GS1 As of 06/05/2023 Status: Implanted Vascular Closure Device [employer] Device Clsr Perclose Prostyle Sut-Mediatd Closure-Repair Sys 84300-99 - [id number] Implanted (Left) Common Femoral Artery Inventory item: [employer] CLSR PERCLOSE PROSTYLE SUT-MEDIATD CLOSURE-REPAIR SYS 08726-36 Model/Cat number: [id number] Forensics Analyst: [employer] Lot number: [id number] Device identifier: [id number] Device identifier type: GS1 As of 05/02/2023 Status: Implanted Type Not Specified [employer] Device Clsr Perclose Prostyle Sut-Mediatd Closure-Repair Sys 91519-84 - [id number] Implanted (Left) Groin Inventory item: [employer] CLSR PERCLOSE PROSTYLE SUT-MEDIATD CLOSURE-REPAIR SYS 73277-01 Model/Cat number: [id number] Forensics Analyst: [employer] Lot number: [id number] Device identifier: [id number] Device identifier type: GS1 As of 06/05/2023 Status: Implanted [employer] Device Clsr Perclose Prostyle Sut-Mediatd Closure-Repair Sys 42689-75 - [id number] Implanted (Left) Groin Inventory item: [employer] CLSR PERCLOSE PROSTYLE SUT-MEDIATD CLOSURE-REPAIR SYS 81038-42 Model/Cat number: [id number] Forensics Analyst: [employer] Lot number: [id number] Device identifier: [id number] Device identifier type: GS1 As of 06/05/2023 Status: Implanted [employer] Ben Contour 6fr 26cm Large Inner Lumen Low Profile Bladder Ag Taper Latex [id number] - [id number] - Implanted (Right) Ureter Inventory item: [employer] Contour 6fr 26cm Large Inner Lumen Low Profile Bladder Ag Taper Latex Free 180-223 Model/Cat number: [id number] Forensics Analyst: [employer] Lot number: [id number] As of 09/27/2023 Status: Implanted [employer] [employer] Ben Contour 6fr 26cm Large Inner Lumen Low Profile Bladder Ag Taper Latex [id number] - [id number] - Implanted (Right) Ureter Inventory item: [employer] Contour 6fr 26cm Large Inner Lumen Low Profile Bladder Ag Taper Latex Free 180-223 Model/Cat number: [id number] Forensics Analyst: [employer] Lot number: [id number] As of 10/04/2023 Status: Implanted General Precautions (If Blank, None Found): Isolation Status: No active isolations Nutritional Status and in-house recommendations: Dietary Orders (From admission, onward) Start Ordered 10/04/23826 Adult Diet Regular Diet effective now Question: ([facility]) Diet type Answer: Regular 10/04/23826 Anticoagulation [...] Landa MD - 10/04/2023 6:34 AM CDT [facility] Urology Progress Note Assessment & Plan: Eriberto Bangura is a 33 y.o. male with a [...] Patel MD - 10/04/2023 12:58 AM CDT Client Service Administrator PN Patient with fever overnight- T 102.7 [...] Also noted type B aortic dissection at [facility] April 2023, TEVAR. Objective Past Medical [...] mg/dL 15 27* CREATININE mg/dL 1.15 1.70* [id number]-HMT-QGYFGNL mL/min/1.73 m2 87 55* CALCIUM mg/dL 8.4* [...] 04/2023, 05/2022, 06/2022 and 08/2022 admissions at [facility]. April admission noted 236lb with fluid [...] intake since surgery and weight loss, says UBW 242lb.He notes just recently finishing full meal for first time. Declines Ensure drinks, eventually agreed to prostat smoothies. No significant recent weight loss per documentation in weights. Possible mild malnutrition based onreported poor intake. SHIREENEN MALNUTRITION ASSESSMENT: Date of completion: 10/03/23 NUTRITION FOCUSED PHYSICAL EXAM: Completed. Subcutaneous Fat Loss Orbital Region - Surrounding the Eye: Slightly bulged fat pads Cheek Region - Buccal Fat: Full, round filled-out cheeks Upper Arm Region - Triceps/Biceps: Ample fat tissue obvious between folds of skin Muscle Loss Yazdanism Region - Temporalis Muscle: Can see/feel well-defined [...] PM CDT Daily Progress Note Division of [facility] Medicine Name: Eriberto Bangura Today: October 03, 2023 : 1990 Age: 33 y.o. male Admit: 10/02/2023 Bed: [facility] Subjective Chief complaint: pyelo Interval History: [...] uro recs this afternoon * Raffi Carolina [facility] - 10/02/2023 3:17 PM CDT Pharmacy Note - Ceftriaxone Dosing Ceftriaxone will be dose adjusted to 2 gm every 24 hours for urinary tract/genitourinary infection according to the following pharmacy dosing guidelines: Indication Recommendation Usual dose 2 grams every 24 hours Severe infection (including but not limited to: Enterococcus endocarditis or RETAIL SHIFT MANAGER infection) 2 gramsevery 12 hours Doses may be adjusted based on laboratory results and the pharmacokinetic and pharmacodynamic principles of the medication and the patient. A serum creatinine should be measured at least weekly. Raffi Carolina dagoberto documented in this encounter H&P Notes * Otoniel Landa MD - 10/04/2023 6:33 AM CDT I have reviewed the H&P, examined the patient, and endorse the findings as written. Plan of Care : Based on the above findings, I consider Eriberto Bangura to be an acceptable risk for : Procedure(s): CYSTOSCOPY RETROGRADE PYELOGRAM - INSERTION URETERAL STENT Source Note - Otoniel Landa MD - 10/03/2023 7:40 AM CDT Images from the original note were not included. [facility] Urology Consultation Patient Name: Eriberto Bagnura Physician requesting consultation: Deric (primary team) Consultation reason: pyelonephr Assessment & Plan: Eriberto Bangura is a 33 y.o. male with a [...] in Urine History of Present Illness: Eriberto Bangura is a 33 y.o. male admitted for [...] 25 mg 25 mg oral Nightly Loyda Hrenandez MD 25 mg at 10/02/232106 amLODIPine (NORVASC) [...] syringe 40 mg 40 mg subcutaneous Daily-2100 YeLoyda lemus MD 40 mg at 10/02/232107 gabapentin (NEURONTIN) [...] as needed for pain, headaches or fever ProviderEli MD amitriptyline (ELAVIL) 25 mg tablet Take 1 [...] times a day as needed for pain Provider, MD Eli dicyclomine (BENTYL) 20 mg tablet Take 1 [...] needed for nausea or vomiting 05/16/23 Meron Parekh NP oxyBUTYnin (DITROPAN) 5 mg tablet Take 1 [...] (0.4 mg total) by mouth daily 09/26/23 Eli Blandon MD tamsulosin (Flomax) 0.4 mg extended release capsule [...] Location: Right arm Left arm Patient Position: HOB 30 degrees Lying Pulse: 110 108 106 [...] CTA chest abdomen pelvis dated 09/26/2023 from [facility], CT dated 08/23/2023 from [facility] FINDINGS: Mild bibasilar atelectasis. Partially visualized aortic stent graft extending from the superior ttlgk-ej-unba in the thoracic aorta to the distal [...] is unchanged since prior with narrow neck. Thestomach and duodenal sweep are normal. No liver lesion. Gallbladder is distended without pericholecystic stranding. No intrahepatic or extrahepatic biliary ductal dilatation. The pancreas is normal. The spleen demonstrates granulomas consistent with history of old granulomatous disease. Bilateral adrenal glands are normal. Kidneys enhance symmetrically without hydroureteronephrosis. Small nonobstructive stones in the right kidney. Urinary bladder is normal. Large bowel is normal. The appendix is normal. The small bowel is normal without signs of bowel obstruction. No retroperitoneal or pelviclymphadenopathy. No free intraperitoneal air or fluid. No body wall edema. No suspicious osseous les ions.. Impression: 1. Unchanged thoracoabdominal aortic dissection status [...] from the original note were not included. [facility] Urology Consultation Patient Name: Eriberto Bangura Physician requesting consultation: Deric (primary team) Consultation reason: pyelonephr Assessment & Plan: Eriberto Bangura is a 33 y.o. male with a [...] in Urine History of Present Illness: Eriberto Bangura is a 33 y.o. male admitted for [...] 10/02/2023 Hypokalemia 10/02/2023 ANGI (acute kidney injury) ([facility]) 10/02/2023 Syncope 10/02/2023 Ureteral calculi 09/27/2023 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[facility]) 09/06/2023 Back pain at L4-L5 level 08/23/2023 PFO (patent foramen ovale) 07/05/2023 Ureteral stone 07/04/2023 Abdominal pain 07/04/2023 Other chronic pain 06/24/2023 Pseudoaneurysm following procedure ([facility]) ([facility]) 06/24/2023 Infrarenal abdominal aortic aneurysm, without rupture ([facility]) 06/13/2023 Polysubstance abuse ([facility]) ([facility]) 06/10/2023 Moderate malnutrition ([facility]) ([facility]) 06/09/2023 Dissection of abdominal aorta ([facility]) ([facility]) 06/03/2023 Urinary retention 05/16/2023 Epistaxis 05/13/2023 Pneumonia 05/13/2023 HTN (hypertension) 05/13/2023 Dissection of thoracoabdominal aorta ([facility]) ([facility]) 05/02/2023 Dissection of aorta, unspecified portion of aorta ([facility]) 05/01/2023 Past Medical History: Diagnosis Date Abdominal pain Anxiety Aortic dissection ([facility]) Depression Hypertension Kidney stones Memory loss Past [...] Resp BP SpO2 10/02/23 1210 10/02/23 1210 10/02/23 12110/02/23120910/02/23 121 37.2 ??C (99 ??F) 96 18 113/78 94 % Temp src Heart Rate Source Patient Position BP Location FiO2 (%) 10/02/23205310/02/23205310/02/23205310/02/232053 -- Oral Pulse Oximetry HOB 30 degrees Right arm Height Height Method Weight Weight Method 10/02/23120910/02/23205310/02/23120910/02/23 121 1.753 m (5' 9 ) Stated 93 [...] Course as of 10/04/23 1541 Time: 10/01 1559 Comment: Spoke with Urology. Noting that as long as there is not a new large obstructive stone or large hydronephrosis, no need for urgent Urology evaluation. OK to admit for antibiotics and pain control. No need for Urology follow-up unless pain not improved tomorrow. By: Mellisa Woo MD Time: 10/01 1608 Comment: UA concerning for UTI. Ceftriaxone ordered. By: Mellisa Woo MD Final diagnoses: Pyelonephritis [N12] Hypokalemia [E87.6] ANGI (acute kidney injury) ([facility]) [N17.9] Syncope, unspecified syncope type [R55] Dissection of aorta, unspecified portion of aorta ([facility]) [I71.00] Primary hypertension [I10] Weight loss [R63.4] ANGI (acute kidney injury) ([facility]) Mellisa Woo MD 10/04/23 1542 * Essie Sosa, RN - 10/02/2023 12:09 PM CDT Patient [...] Implant Name Type Inv. Item Serial No. Forensics Analyst Lot No. LRB No. Used Action [employer] Contour 6fr 26cm Large Inner Lumen Low Profile Bladder Ag Taper Latex [id number] - [id number] [employer] Contour 6fr 26cm Large Inner Lumen Low Profile BladderMark Taper Latex Free 180-223 [employer] Ben [id number] Right 1 Implanted OPERATIVE DETAILS Incision type: [...] technique. A time-out was performed. A 22 Maori cystoscope was introduced per urethra without difficulty. [...] (including opening and closing). * Plan of Ann - Migel Oliveira - 10/03/2023 7:49 PM [...] after taking compazine that he should try Hermitage. He said ok. Five minutes later he [...] Note Division of Hospital Medicine Name: Eriberto Bangura Today: October 03, 2023 : 1990 Age: 33 y.o. male Admit: 10/02/2023 Bed: [facility] Subjective Chief complaint: pyelo Interval History: [...] c/o lower back pain. Dilaudid, Tylenol, and Hermitage being utilizedfor pain. Pt placed on telemetry [...] this afternoon * Initial Assessments - Samantha Maldonado RN - 10/02/2023 8:37 PM CDT CM [...] [employer] Prescription Coverage: Yes Pharmacy: [facility]/pharmacy #[id number] - [place], [place] - [address] [facility] [facility] [address] [facility] [address] Primary Care Provider: Carl Strickland MD Prior [...] Patient declined How often do you attend mandaeism or yazidi services?: Patient declined Do you belong to any clubs or organizations such as mandaeism groups, unions, fraternal or athletic groups, or [...] include: Home Health: IV therapy (Patient has [place] [facility]) (10/02/232031) Dialysis: NO Behavioral Health [...] Collaboration with patient, MD, direct care nurse, Joint Creaser, and other members of the health care team to assure needed interventions completed. 2. Return patient to optimal level of self-care post discharge. 3. Show Girl will follow for Discharge Planning - interventions [...] Chronic Care Management No change(05/16 2:51 PM TEST CAR DRIVER) No Rita Landa, BRIA Note: Problem: Chronic [...] 1 Hour (10/04/2023 7:44 AM CDT) Narrative [facility] - 10/04/2023 7:44 AM CDT The images from this study are not interpreted by Radiology. ??Please refer to the physician's procedure / OR operative note. us Otoniel Landa MD IMG FLUOROSCOPY MAGED PRINCE Final Result [facility] * eGFR (10/04/2023 5:40 AM CDT) eGFR [...] MD LAB BLOOD ORDERABLES Fi nal Result [facility] [address] Department [place] [address] * Differential, auto (10/04/2023 5:40 AM CDT) Neutrophil abs 3.8 1.5 - 6.5 K/cumm Imm gran abs 0.1 0.0 - 0.1 K/cumm [facility] Lymphocyte abs 1.2 0.8 - 3.3 K/cumm [facility] Monocyte abs 0.7 0.2 - 0.8 K/cumm [facility] Eosinophil abs 0.0 0.0 - 0.5 K/cumm [facility] Basophil abs 0.0 0.0 - 0.1 K/cumm [facility] Neutrophil pct 66.5 % [facility] Comment: Interpretive Data Percent cell count reference ranges are not reported, since discordance with absolute values may lead to misinterpretation of CBC data. Current Interpretive Data was last revised on 2017. Imm gran pct 0.9 % [facility] Comment: Interpretive Data Percent cell count reference ranges are not reported, since discordance with absolute values may lead to misinterpretation of CBC data. Current Interpretive Data was last revised on 2017. Lymphocyte pct 20.1 % [facility] Comment: Interpretive Data Percent cell count reference ranges are not reported, since discordance with absolute values may lead to misinterpretation of CBC data. Current Interpretive Data was last revised on 2017. Monocyte pct 11.9 % [facility] Comment: Interpretive Data Percent cell count reference ranges are not reported, since discordance with absolute values may lead to misinterpretation of CBC data. Current Interpretive Data was last revised on 2017. Eosinophil pct 0.3 % [facility] Comment: Interpretive Data Percent cell count reference ranges are not reported, since discordance with absolute values may lead to misinterpretation of CBC data. Current Interpretive Data was last revised on 2017. Basophil pct 0.3 % [facility] Comment: Interpretive Data Percent cell count reference ranges are not reported, since discordance with absolute values may lead to misinterpretation of CBC data. Current Interpretive Data was last revised on 2017. Blood 10/04/2023 5:40 AM CDT 10/04/2023 6:45 AM CDT us Doron Boudreaux MD LAB BLOOD ORDERABLES Fi nal Result [facility] [address] [place] [address] * Magnesium (10/04/2023 5:40 AM CDT) Magnesium 2.1 1.4 - 2.5 mg/dL Blood 10/04/2023 5:40 AM CDT 10/04/2023 6:45 AM CDT Doron Boudreaux MD LAB BLOOD ORDERABLES Fi nal Result Performing Organization Address [facility]/ZIP Co de Phone Number [facility] [address] [place] [address] * (ABNORMAL) Basic metabolic panel (10/04/2023 5:40 AM CDT) [facility] Sodium 140 135 - 145 mmol/L Potassium, pl 3.6 3.3 - 4.9 mmol/L [facility] Chloride 104 97 - 110 mmol/L [facility] CO2 22 22 - 32 mmol/L [facility] Anion gap 14 2 - 15 mmol/L [facility] BUN 11 6 - 25 mg/dL [facility] Creatinine 1.56(H) 0.80 - 1.30 mg/dL [facility] Glucose 96 70 - 199 mg/dL [facility] Comment: Interpretive Data Fasting glucose [...] 2022. Calcium 8.6 8.5 - 10.3 mg/dL [facility] Blood 10/04/2023 5:40 AM CDT 10/04/2023 6:45 AM CDT Doron Boudreaux MD LAB BLOOD ORDERABLES Fi nal Result Performing Organization Address [facility] Co de Phone Number [facility] [address] [place] [address] * (ABNORMAL) CBC with auto differential (10/04/2023 5:40 AM CDT) WBC 5.7 3.8 - 9.9 K/cumm Hgb 10.4(L) 13.0 - 17.5 g/dL [facility] Hct 32.9(L) 38.9 - 50.3 % [facility] Plt 236 150 - 400 K/cumm [facility] MPV 9.6 9.1 - 12.[address] [facility] RBC 3.55(L) 4.30 - 5.80 M/cumm [facility] MCV 92.7 81.3 - 96.[address] [facility] MCH 29.3 27.1 - 33.[address] [facility] MCHC 31.6(L) 32.3 - 35.7 g/dL [facility] RDW CV 14.8 11.1 - 14.9 % [facility] RDW SD 50.7(H) 35.7 - 48.[address] [facility] NRBC abs 0.00 0.00 - 0.01 K/cumm [facility] Blood 10/04/2023 5:40 AM CDT 10/04/2023 6:45 AM CDT us Doron Boudreaux MD LAB BLOOD ORDERABLES Fi nal Result [facility] [address] [place] [address] * Blood culture Blood (10/04/2023 1:58 AM CDT) Pathologist [facility] Report Final Report: No growth Blood 10/04/2023 1:58 AM CDT 10/04/2023 2:[address] [facility] - 10/09/2023 7:01 AM CDT From a [...] organism identification may be performed using the IotumArray Blood Culture Identification panel. This assay detects microbial DNA in a blood culture broth. This assay has been cleared by the [facility] Food and Drug Administration and its performance characteristics have been verified by the [facility]biology Laboratory. Interpretive data was last revised on July 01, 2022. Kim Patel MD LAB MICROBIOLOGY - GENERAL ORDERABLES Final Result Performing Organization Address [facility] Co de Phone Number [facility] [address] Department [address] [address] * Blood culture Blood (10/04/2023 1:25 AM CDT) Report Final Report: No growth Blood 10/04/2023 1:25 AM CDT 10/04/2023 1:51 AM CDT Narrative [facility] - 10/09/2023 7:01 AM CDT Collection->Peripheral [...] organism identification may be performed using the Card[employer] FilmArray Blood Culture Identification panel. This assay detects microbial DNA in a blood culture broth. This assay has been cleared by the [place] Food and Drug Administration and its performance characteristics have been verified by the [facility]biology [facility]. Interpretive data was last revised on July 01, 2022. Kim Patel MD LAB MICROBIOLOGY - GENERAL ORDERABLES Final Result Performing Organization Address [facility] Co de Phone Number [facility] [address] Department [address], [place] [id number] * TRANSTHORACIC ECHO (TTE) COMPLETE W DOPPLER/CF W CONTRAST (10/03/2023 4:05 PM CDT) Anatomical Region Laterality Modality Ultrasound 10/03/2023 2:55 PM CDT Narrative 10/03/2023 4:51 PM CDT [facility] [address] [place] [address] ECHOCARDIOGRAM Patient Name: ERIBERTO BANGURA I : 1990 Study Date: 10/03/2023 2:55:30 PM Gender: M Tech: Location: [address] Ref Provider: RADHA DIXON ?Height(Cm): 175 BSA: [...] hypertrophy. Electronically Signed By: Deandre Meza MD, [facility] 2023-10-03 16:50:39 CDT Procedure Note Deandre Meza MD - 10/03/2023 [address] [place] [address] ECHOCARDIOGRAM Patient Name: ERIBERTO BANGURA I : 1990 Study Date: 10/03/2023 2:55:30 PM Gender: M Tech: Location: [address] Ref Provider: RADHA DIXON Height(Cm): 175 [...] hypertrophy. Electronically Signed By: Deandre Meza MD, [facility] 2023-10-03 16:50:39 CDT Radha Dixon MD CV ECHO PROCEDURES Fin [...] MD LAB BLOOD ORDERABLES Final Resu lt [facility] [address] [place] [address] * (ABNORMAL) Differential, auto (10/03/2023 8:01 AM CDT) Neutrophil abs 4.7 1.5 - 6.5 K/cumm Imm gran abs 0.1 0.0 - 0.1 K/cumm [facility] Lymphocyte abs 0.6(L) 0.8 - 3.3 K/cumm [facility] Monocyte abs 1.0(H) 0.2 - 0.8 K/cumm [facility] Eosinophil abs 0.0 0.0 - 0.5 K/cumm [facility] Basophil abs 0.0 0.0 - 0.1 K/cumm [facility] Neutrophil pct 74.0 % [facility] Comment: Interpretive Data Percent cell count reference ranges are not reported, since discordance with absolute values may lead to misinterpretation of CBC data. Current Interpretive Data was last revised on 2017. Imm gran pct 0.8 % [facility] Comment: Interpretive Data Percent cell count reference ranges are not reported, since discordance with absolute values may lead to misinterpretation of CBC data. Current Interpretive Data was last revised on 2017. Lymphocyte pct 9.7 % [facility] Comment: Interpretive Data Percent cell count reference ranges are not reported, since discordance with absolute values may lead to misinterpretation of CBC data. Current Interpretive Data was last revised on 2017. Monocyte pct 15.2 % [facility] Comment: Interpretive Data Percent cell count reference ranges are not reported, since discordance with absolute values may lead to misinterpretation of CBC data. Current Interpretive Data was last revised on 2017. Eosinophil pct 0.0 % [facility] Comment: Interpretive Data Percent cell count reference ranges are not reported, since discordance with absolute values may lead to misinterpretation of CBC data. Current Interpretive Data was last revised on 2017. Basophil pct 0.3 % [facility] Comment: Interpretive Data Percent cell count reference ranges are not reported, since discordance with absolute values may lead to misinterpretation of CBC data. Current Interpretive Data was last revised on 2017. Blood 10/03/2023 8:0 1 AM CDT 10/03/2023 9:26 AM CDT us Loyda Hernandez MD LAB BLOOD ORDERABLES Final Resu lt Performing Organization Address [facility]/ZIP Co de Phone Number [facility] [address] [place] [address] * Magnesium (10/03/2023 8:01 AM CDT) Pathologist [facility] Magnesium 1.9 1.4 - 2.5 mg/dL Blood 10/03/2023 8:01 AM CDT 10/03/2023 9:56 AM CDT Radha Dixon MD LAB BLOOD ORDERABLES F inal Result Performing Organization Address [facility]/ZIP Co de Phone Number [facility] [address] [place] [address] * (ABNORMAL) CBC with auto differential (10/03/2023 8:01 AM CDT) WBC 6.3 3.8 - 9.9 K/cumm Hgb 10.0(L) 13.0 - 17.5 g/dL [facility] Hct 31.1(L) 38.9 - 50.3 % [facility] Plt 230 150 - 400 K/cumm [facility] MPV 9.3 9.1 - 12.[address] [facility] RBC 3.35(L) 4.30 - 5.80 M/cumm [facility] MCV 92.8 81.3 - 96.[address] [facility] MCH 29.9 27.1 - 33.[address] [facility] MCHC 32.2(L) 32.3 - 35.7 g/dL [facility] RDW CV 15.0(H) 11.1 - 14.9 % [facility] RDW SD 50.0(H) 35.7 - 48.[address] [facility] NRBC abs 0.00 0.00 - 0.01 K/cumm [facility] Blood 10/03/2023 8:01 AM CDT 10/03/2023 9:26 AM CDT us Loyda Hernandez MD LAB BLOOD ORDERABLES Final Resu lt [facility] [address] [place] [address] * (ABNORMAL) Basic metabolic panel (10/03/2023 8:01 AM CDT) Sodium 134(L) 135 - 145 mmol/L Potassium, pl 3.3 3.3 - 4.9 mmol/L [facility] Chloride 100 97 - 110 mmol/L [facility] CO2 22 22 - 32 mmol/L [facility] Anion gap 12 2 - 15 mmol/L [facility] BUN 15 6 - 25 mg/dL [facility] Creatinine 1.15 0.80 - 1.30 mg/dL [facility] Glucose 95 70 - 199 mg/dL [facility] Comment: Interpretive Data Fasting glucose [...] 2022. Calcium 8.4(L) 8.5 - 10.3 mg/dL [facility] Blood 10/03/2023 8:01 AM CDT 10/03/2023 9:56 AM CDT us Loyda Hernandez MD LAB BLOOD ORDERABLES Final Resu lt Performing Organization Address [facility] de Phone Number [facility] [address] [place] [address] * Urine culture Urine, clean voided (10/03/2023 1:00 AM CDT) Report Final Report: No growth Urine, clean voided 10/03/2023 1:00 AM CDT 10/03/2023 5:13 AM CDT [facility] - 10/05/2023 6:00 AM CDT Urine culture reflexed based upon urinalysis results. Craig Reed MD LAB MICROBIOLOGY - GENERAL ORDERABLES Final Result Performing Organization Address [facility] de Phone Number [facility] [address] [place] [address] * (ABNORMAL) Urinalysis, microscopic only (10/03/2023 1:00 AM CDT) WBC, ur >50(A) 0 - 5 /HPF RBC, ur >50(A) 0 - 2 /HPF [facility] Culture Reflex Comment Reflex to urine culture will be performed. [facility] Urine, clean voided 10/03/2023 1:00 AM CDT 10/03/2023 1:13 AM CDT Craig Reed MD LAB URINE ORDERABLES Final Result Performing Organization Address [facility] de Phone Number [facility] [address] [place] [address] * (ABNORMAL) Urinalysis reflex to microscopic and culture Urine, clean voided (10/03/2023 1:00 AM CDT) Color, ur Tessa Yellow Clarity, ur Turbid(A) Clear [facility] Specific gravity, ur 1.035(H) 1.003 - 1.030 [facility] pH, urine 6.0 [facility] Comment: Interpretive Data ? Urine pH is affected by diet, medications, systemic acid-base disturbances, and renal tubular function. ??pH may affect urinary stone formation. ??For example, urine pH below 6.0 may help reduce the tendency for calcium phosphate stones and pH greater than 6.0 may reduce the tendency for uric acid stone formation. Source: [facility] Current Interpretive Data was last revised on 2017 Protein, ur ql 1+(A) Negative [facility] Glucose, ur ql Negative Negative [facility] Ketones, ur Negative Negative [facility] Bilirubin, ur Negative Negative [facility] Blood, ur 3+(A) Negative [facility] Urobilinogen, ur <2.0 <2.0 mg/dL [facility] Nitrite, ur Negative Negative [facility] Leukocyte esterase, ur 3+(A) Negative [facility] UA reflex comment Reflex to microscopic UA will be performed. [facility] Urine, clean voided 10/03/2023 1:00 AM CDT 10/03/2023 1:13 AM CDT us Craig Reed MD LAB MICROBIOLOGY - GENERAL ORDERABLES Final Result [facility] [address] [place] [address] * CT Abdomen Pelvis W Contrast (10/02/2023 [...] PM CDT 10/02/2023 8:31 PM CDT Narrative [facility] - 10/04/2023 9:00 PM CDT Urine culture reflexed based upon urinalysis results. Mellisa Woo MD LAB MICROBIOLOGY - GENERA L ORDERABLES Final Result [facility] [address] [place] [address] * (ABNORMAL) Urinalysis, microscopic only (10/02/2023 1:56 PM CDT) WBC, ur >50(A) 0 - 5 /HPF RBC, ur >50(A) 0 - 2 /HPF [facility] Epithelial cells, squamous, ur 1-5 0 - 5 /HPF [facility] Bacteria, ur 3+(A) [facility] Mucous, ur Present(A) [facility] Culture Reflex Comment Reflex to urine culture will be performed. [facility] Urine, bladder 10/02/2023 1: 56 PM CDT 10/02/2023 2:04 PM CDT Mellisa Woo MD LAB URINE ORDERABLES Sally zhang Result [facility] [address] [place] [address] * (ABNORMAL) Urinalysis reflex to microscopic and culture Urine, bladder (10/02/2023 1:56 PM CDT) Color, ur Tessa Yellow Clarity, ur Turbid(A) Clear [facility] Specific gravity, ur 1.023 1.003 - 1.030 [facility] pH, urine 6.0 [facility] Comment: Interpretive Data ? Urine pH is affected by diet, medications, systemic acid-base disturbances, and renal tubular function. ??pH may affect urinary stone formation. ??For example, urine pH below 6.0 may help reduce the tendency for calcium phosphate stones and pH greater than 6.0 may reduce the tendency for uric acid stone formation. Source: [facility] Current Interpretive Data was last revised on 2017 Protein, ur ql 2+(A) Negative [facility] Glucose, ur ql Negative Negative [facility] Ketones, ur Negative Negative [facility] Bilirubin, ur Negative Negative [facility] Blood, ur 3+(A) Negative [facility] Urobilinogen, ur <2.0 <2.0 mg/dL [facility] Nitrite, ur Negative Negative [facility] Leukocyte esterase, ur 4+(A) Negative [facility] UA reflex comment Reflex to microscopic UA will be performed. [facility] Urine, bladder 10/02/2023 1: 56 PM CDT 10/02/2023 1:56 PM CDT us Mellisa Woo MD LAB MICROBIOLOGY - GENERA L ORDERABLES Final Result Performing Organization Address [facility] Co de Phone Number [facility] [address] [place], [place] [id number] * (ABNORMAL) eGFR (10/02/2023 1:37 PM CDT) [...] ORDERABLES Sally l Result Performing Organization Address [facility] Co de Phone Number [facility] [address] Department [address] [address] * (ABNORMAL) Differential, auto (10/02/2023 1:37 PM CDT) Pathologist [facility] Neutrophil abs 6.0 1.5 - 6.5 K/cumm Imm gran abs 0.0 0.0 - 0.1 K/cumm [facility] Lymphocyte abs 0.5(L) 0.8 - 3.3 K/cumm [facility] Monocyte abs 0.9(H) 0.2 - 0.8 K/cumm [facility] Eosinophil abs 0.1 0.0 - 0.5 K/cumm [facility] Basophil abs 0.0 0.0 - 0.1 K/cumm [facility] Neutrophil pct 79.8 % [facility] Comment: Interpretive Data Percent cell count reference ranges are not reported, since discordance with absolute values may lead to misinterpretation of CBC data. Current Interpretive Data was last revised on 2017. Imm gran pct 0.5 % [facility] Comment: Interpretive Data Percent cell count reference ranges are not reported, since discordance with absolute values may lead to misinterpretation of CBC data. Current Interpretive Data was last revised on 2017. Lymphocyte pct 7.1 % [facility] Comment: Interpretive Data Percent cell count reference ranges are not reported, since discordance with absolute values may lead to misinterpretation of CBC data. Current Interpretive Data was last revised on 2017. Monocyte pct 11.5 % [facility] Comment: Interpretive Data Percent cell count reference ranges are not reported, since discordance with absolute values may lead to misinterpretation of CBC data. Current Interpretive Data was last revised on 2017. Eosinophil pct 0.8 % [facility] Comment: Interpretive Data Percent cell count reference ranges are not reported, since discordance with absolute values may lead to misinterpretation of CBC data. Current Interpretive Data was last revised on 2017. Basophil pct 0.3 % [facility] Comment: Interpretive Data Percent cell count reference ranges are not reported, since discordance with absolute values may lead to misinterpretation of CBC data. Current Interpretive Data was last revised on 2017. Blood 10/02/2023 1:37 PM CDT 10/02/2023 1:56 PM CDT Mellisa Woo MD LAB BLOOD ORDERABLES Sally l Result Performing Organization Address City/[facility]/ZIP Co de Phone Number [facility] [address] Department [place] [address] * Lipase (10/02/2023 1:37 PM CDT) Pathologist [facility] Lipase 10 10 - 99 Units/L Blood 10/02/2023 1:37 PM CDT 10/02/2023 1:56 PM CDT Mellisa Woo MD LAB BLOOD ORDERABLES Sally l Result Performing Organization Address [facility] Co de Phone Number [facility] [address] [place] [address] * (ABNORMAL) Comprehensive metabolic panel (10/02/2023 1:37 PM CDT) [facility] Sodium 138 135 - 145 mmol/L Potassium, pl 3.1(L) 3.3 - 4.9 mmol/L [facility] Chloride 101 97 - 110 mmol/L [facility] CO2 25 22 - 32 mmol/L [facility] Anion gap 12 2 - 15 mmol/L [facility] BUN 27(H) 6 - 25 mg/dL [facility] Creatinine 1.70(H) 0.80 - 1.30 mg/dL [facility] Glucose 93 70 - 199 mg/dL [facility] Comment: Interpretive Data Fasting glucose [...] 2022. Calcium 9.2 8.5 - 10.3 mg/dL [facility] Bilirubin, total 0.4 0.1 - 1.2 mg/dL [facility] Protein, pl 8.0 6.5 - 8.5 g/dL [facility] Albumin 4.3 3.5 - 5.0 g/dL [facility] Alk phos 90 40 - 130 Units/L [facility] ALT 8 7 - 55 Units/L [facility] AST 10 10 - 50 Units/L [facility] Blood 10/02/2023 1:37 PM CDT 10/02/2023 1:56 PM CDT us Mellisa Woo MD LAB BLOOD ORDERABLES Sally zhang Result [facility] [address] [place] [address] * (ABNORMAL) CBC with auto differential (10/02/2023 1:37 PM CDT) [facility] WBC 7.5 3.8 - 9.9 K/cumm Hgb 10.7(L) 13.0 - 17.5 g/dL [facility] Hct 32.2(L) 38.9 - 50.3 % [facility] Plt 259 150 - 400 K/cumm [facility] MPV 9.4 9.1 - 12.[address] [facility] RBC 3.62(L) 4.30 - 5.80 M/cumm [facility] MCV 89.0 81.3 - 96.[address] [facility] MCH 29.6 27.1 - 33.[address] [facility] MCHC 33.2 32.3 - 35.7 g/dL [facility] RDW CV 14.8 11.1 - 14.9 % [facility] RDW SD 48.2(H) 35.7 - 48.[address] [facility] NRBC abs 0.00 0.00 - 0.01 K/cumm [facility] Blood 10/02/2023 1:37 PM CDT 10/02/2023 1:56 PM CDT us Mellisa Woo MD LAB BLOOD ORDERABLES Sally leatha Result [facility] [address] [place] [address] documented in this encounter Visit Diagnoses Not on filedocumented in this encounter Admitting Diagnoses Diagnosis Pyelonephritis Unspecified pyelonephritis documented in this encounter Administered Medications Inactive Administered Medications - up to 3 most recent administrations Medication Order MAR Action Action Date Dose Rate Site acetaminophen (TYLENOL) tablet 650 mg 650 mg, [...] Given 10/04/2023 11:15 AM CDT 300 mg enoxaparin (LOVENOX) syringe 40 mg 40 mg, subcutaneous, Daily (for enoxaparin), First dose on Tue10/02/23 at 2130, Indications: Deep Vein Thrombosis PreventionIndications:Deep Vein Thrombosis Prevention Given 10/03/2023 8:51 PM CDT 40 mg Left Upper Arm Given 10/02/2023 9:08 PM CDT 40 mg Le ft Upper Arm gabapentin (NEURONTIN) tablet 600 mg 600 mg, [...] Given 10/03/2023 7:25 PM CDT 1 mg labetaloL (NORMODYNE,TRANDATE) tablet 400 mg 400 mg, oral, 2 times daily, First dose on Tue10/02/23 at 2130, Please hold for SBP < 120 Given 10/04/2023 9:4 2 AM CDT 400 mg Given 10/03/2023 10:18 [...] Given 10/03/2023 4:37 AM CDT 4 mg polyethylene glycol (MIRALAX) packet 17 g 17 g, oral, Daily PRN, constipation, Starting on Tue10/02/23 at 2051, Indications: constipationIndications:constipation prochlorperazine (COMPAZINE) injection 5 mg 5 mg, intravenous, Administer over 2 Minutes, Every 6 hours PRN, nausea, vomiting, 2nd line, Starting on Tue10/03/23 at 0755 Given 10/03/2023 9:17 AM CDT 5 mg QUEtiapine (SEROquel) tablet 50 mg 50 mg, oral, Nightly, First dose on 10/02/23 at 2130 Given 10/03/2023 8:52 PM CDT [...] daily, First dose on 10/02/23 at 2130 Given 10/04/2023 9:41 AM CDT 2 tablets Given 10/03/2023 10:16 AM CDT 2 tablets Given 10/02/2023 9:07 PM CDT 2 tablets sodium chloride 0.9% flush 0.5-20 mL 0.5-20 mL, intra-catheter, Every 8 hours scheduled, First dose on Tue10/02/23 at 2200, Flush volume based on line type and size. Given 10/03/2023 3:00 PM CDT 10 mL sodium chloride 0.9% infusion 125 mL/hr, intravenous, Continuous, Starting on Tue10/04/23 at 0145, For 24 hours New Bag 10/04/2023 2:58 AM CDT 125 mL/hr 125 mL/hr sodium chloride 0.9% irrigation As needed, Starting on Tue10/04/23 at 0736, Intra-Op Given 10/04/2023 7:36 AM CDT 500 mL Surgical Site Given 10/04/2023 7:35 AM CDT 3,000 mL Cabral rgical Site tamsulosin (FLOMAX) extended release capsule 0.4 [...] Pre-Emptive Analgesia 0702 (Given - Provider: Darrion Rivas, BRIA) amitriptyline (ELAVIL) tablet 25 mg 25 mg, [...] on Tue10/02/23 at 1600, Indications: Urinary Tract/Genitourinary Infection 1534 (Given - Provider: Cayla Toussaint, BRIA) 1634 (Given - Provider: Naomi Mejia, BRIA) 0626 (JUL Hold - Provider: Automatic Transfer Provider - Reason: Patient not available)0923 (JUL Unhold - Provider: Automatic Transfer Provider) diazePAM (VALIUM) injection 2.5 mg (COMPLETED) 2.5 mg, intravenous, Administer over 1 Minutes, Once, On Tue10/02/23 at 1530, For 1 dose 1543 (Given - Provider: Cayla Toussaint RN) dimenhyDRINATE (DRAMAMINE) tablet 25 mg (COMPLETED) 25 mg, oral, Once, On Tue10/04/23 at 0715, For 1 dose, Pre-Op, Indications: Prevention of Nausea and Vomiting 0703 (Given - Provider: Darrion Rivas, BRIA) enoxaparin (LOVENOX) syringe 40 mg 40 mg, subcutaneous, Daily (for enoxaparin), First dose on Tue10/02/23 at 2130, Indications: Deep Vein Thrombosis Prevention 210 (Given - Provider: Migel Oliveira) 2050 (Given - Provider: Migel Oliveira) 06 (JUL Hold - Provider: Automatic Transfer Provider - Reason: Patient not available)0923 (MAR Unhold - Provider: Automatic Transfer Provider) fentaNYL [...] daily, First dose on Tue10/02/23 at 2130 2107 (Not Given - Provider: Migel Oliveira - Reason: Patient/family refused) 1017 (Given - Provider: Naomi Mejia RN - Comment: Vomiting)1639 (Given - Provider: Naomi Mejia RN)2051 (Given - Provider: Migel Oliveira) 0626 (MAR Hold - Provider: Automatic Transfer Provider - Reason: Patient not available)0900 (Dose Auto Held - Provider: Automatic Transfer Provider)0923 (MAR Unhold - Provider: Automatic Transfer Provider) hydrALAZINE (APRESOLINE) tablet 50 mg 50 mg, oral, 3 times daily, First dose on Tue10/02/23 at 2130, On hold since Tue10/04/2023 at 0106 until manually unheld 2106 (Given - Provider: Migel Oliveira) 1018 (Given - Provider: Naomi Mejia RN - Comment: Vomiting)1635 (Given - Provider: Naomi Mejia RN)2051 (Given - Provider: Migel Oliveira) 0106 (Held by Provider - Provider: Kim Patel MD - Reason: Other)0900 (Dose Auto Held - Provider: Kim Patel MD)183 (Unheld by Provider - Provider: Automatic Discharge Provider) HYDROmorphone (DILAUDID) injection 1 mg (COMPLETED) 1 mg, intravenous, Administer over 2 Minutes, Once, On 10/02/23 at 1320, For 1 dose 1342 (Given - Provider: Cayla Toussaint, BRIA) ibuprofen (ADVIL,MOTRIN) tablet 400 mg (COMPLETED) 400 mg, oral, 3 times daily, First dose on Tue10/03/23 at 2100, For 1 dose 2047 (Hold - Provider: Migel Oliveira - Reason: Resident/resident physician relations representative refused - education provided) 0055 (Given - Provider: Migel Oliveira) labetaloL (NORMODYNE,TRANDATE) tablet 400 mg 400 mg, oral, 2 times daily, First dose on Tue10/02/23 at 2130, Please hold for SBP < 120 2106 (Given - Provider: Migel Oliveira) 1018 (Given - Provider: Naomi Mejia RN)2046 (Not Given - Provider: Migel Oliveira - Reason: Resident/resident physician relations representative refused - education provided) 0626 (JUL Hold - Provider: Automatic Transfer Provider - Reason: Patient not available)0900 (Dose Auto Held - Provider: Automatic Transfer Provider)0923 (JUL Unhold - Provider: Automatic Transfer Provider)0942 (Given - Provider: Naomi Mejia, BRIA) ondansetron (ZOFRAN) injection 4 mg (COMPLETED) 4 mg, intravenous, Administer over 2 Minutes, Once, On 10/02/23 at 1529, For 1 dose 1534 (Given - Provider: Cayla Toussaint RN) potassium chloride 20 mEq in sodium chloride [...] 2130 210 (Given - Provider: Migel Oliveira) 2051 (Given - Provider: Migel Oliveira) 0626 (JUL Hold - Provider: Automatic Transfer Provider - Reason: Patient not available)0923 (JUL Unhold - Provider: Automatic Transfer Provider) senna-docusate (PERICOLACE) 8.6-50 mg per tablet 2 tablet 2 tablet, oral, 2 times daily, First dose on 10/02/23 at 2130 210 (Given - Provider: Migel Oliveira) 1016 (Given - Provider: Naomi Mejia RN - Comment: Pt was vomiting)2051 (Not Given - Provider: Migel Oliveira - Reason: Patient/family refused) 0626 (JUL Hold - Provider: Automatic Transfer Provider - Reason: Patient not available)0900 (Dose Auto Held - Provider: Automatic Transfer Provider)0923 (JUL Unhold - Provider: Automatic Transfer Provider)0941 (Given - Provider: Naomi Mejia, BRIA) sodium chloride 0.9% bolus 1,000 mL (COMPLETED) 1,000 mL, intravenous, at 1,000 mL/hr, Administer over 1 Hours, Once, On 10/02/23 at 1320, For 1 dose 1343 (New [...] - Provider: Migel Oliveira - Reason: Other)0626 (JUL Hold - Provider: Automatic Transfer Provider - Reason: Patient not available)0923 (JUL Unhold - Provider: Automatic Transfer Provider)1400 (Due) tamsulosin (FLOMAX) extended release capsule 0.4 mg 0.4 mg, oral, Daily, First dose on Tue10/03/23 at 0900, Do not crush, chew, cut, dissolve, open or otherwise manipulate tablet/capsule. 1017 (Given - Provider: Naomi Mejia, BRIA) 0626 (JUL Hold - Provider: Automatic Transfer Provider - Reason: Patient not available)0900 (Dose Auto Held - Provider: Automatic Transfer Provider)0923 (JUL Unhold - Provider: Automatic Transfer Provider)0941 (Given - Provider: Naomi Mejia, BRIA) Continuous Medication Order 10/02/2023 10/03/2023 10/04/2023 Lactated [...] infusion 125 mL/hr, intravenous, Continuous, Starting on 10/04/23 at 0145, For 24 hours 0258 (New Bag - Provider: Migel Oliveira)183 (Due: Stopped) PRN Medication Order 10/02/2023 10/03/2023 10/04/2023 acetaminophen (TYLENOL) tablet 650 mg 650 mg, oral, Every 4 hours PRN, 1st line for pain, fever, fever greater than 38.3 C, Starting on 10/02/23 at 2051, Indications: Fever, Pain 2106 (Given - Provider: Migel Oliveira) 1014 (Given - Provider: Naomi Mejia, RN)172 (Given - Provider: Naomi Mejia, BRIA)2051 (Given - Provider: Migel Oliveira) 0626 ([employer] [facility] Hold - Provider: Automatic Transfer Provider - Reason: Patient not available)0923 ([facility] Unhold - Provider: Automatic Transfer Provider) capsaicin (ZOSTRIX) 0.025 % cream 1 Application 1 Application, topical, 2 times daily PRN, pain, Starting on 10/02/23 at 2051, Apply to affected area: rash 0626 ([employer] [facility] Hold - Provider: Automatic Transfer Provider - Reason: Patient not available)0923 ([employer] [facility] Unhold - Provider: Automatic Transfer Provider) Carrier Fluids for Secondary Infusion - 0.9% Sodium Chloride 30 mL, intravenous, As needed, For priming tubing and/or flushing, Starting on 10/02/23 at 2051, 0-250 ml/hr to flush line after IV infusions when no maintenance IV ordered. Infuse 30mL at the same rate as the secondary infusion. Run as primary IV, not intended for KVO. 0626 ([employer] [facility] Hold - Provider: Automatic Transfer Provider - Reason: Patient not available)0923 ([employer] [facility] Unhold - Provider: Automatic Transfer Provider) dicyclomine (BENTYL) capsule 20 mg 20 mg, oral, Every 6 hours PRN, For abdominal pain, Starting on 10/02/23 at 2051 625 ([facility] Hold - Provider: Automatic Transfer Provider - Reason: Patient not available)0923 ([facility] Unhold - Provider: Automatic Transfer Provider) HYDROcodone-acetaminophe n (NORCO) 5-325 mg per tablet 1 tablet (CANCELED) 1 tablet, oral, Every 6 hours PRN, 2nd line for pain, Starting on 10/02/23 at 2036, Indications: Pain 2039 (Given - Provider: Cayla Toussaint RN) HYDROcodone-acetaminophe n (NORCO) 5-325 mg per tablet 1 tablet 1 tablet, oral, Every 4 hours PRN, 2nd line for pain, Starting on 10/03/23 at 0039, Indications: Pain 0042 (Given - Provider: Migel Oliveira)1016 (Given - Provider: Naomi Mejia RN) 0055 (Given - Provider: Migel Oliveira)0626 ([facility] Hold - Provider: Automatic Transfer Provider - Reason: Patient not available)0923 ([facility] Unhold - Provider: Automatic Transfer Provider) hydrocortisone (ANUSOL-HC) 2.5 % rectal cream rectal, 2 times daily PRN, hemorrhoids, Starting on 10/02/23 at 2051 06 ([facility] Hold - Provider: Automatic Transfer Provider - Reason: Patient not available)0923 ([facility] Unhold - Provider: Automatic Transfer Provider) HYDROmorphone (DILAUDID) injection 1 mg 1 mg, intravenous, Administer over 2 Minutes, Every 2 hours PRN, 2nd line for pain, Starting on 10/02/23 at 1641 1654 (Given - Provider: Cayla Toussaint, BRIA)1922 (Given - Provider: Cayla Toussaint RN)2103 (Given - Provider: Migel Oliveira) 0304 (Given - Provider: Migel Oliveira)0524 (Given - Provider: Migel Oliveira)1121 (Given - Provider: Naomi Mejia, BRIA)1503 (Given - Provider: Naomi Mejia, BRIA)1724 (Given - Provider: Naomi MejiaBRIA)1925 (Given - Provider: Naomi Mejia RN)2119 (Given - Provider: Migel Oliveira) 0532 (Given - Provider: Migel Oliveira)06 ([facility] Hold - Provider: Automatic Transfer Provider - Reason: Patient not available)0923 ([facility] Unhold - Provider: Automatic Transfer Provider) hyoscyamine (OSCIMIN) disintegrating tablet 125 mcg 125 mcg, oral, Every 4 hours PRN, bladder spasms, Starting on 10/02/23 at 2051, Indications: Ureteral stent discomfort 06 ([facility] Hold - Provider: Automatic Transfer Provider - Reason: Patient not available)0923 ([employer] [facility] Unhold - Provider: Automatic Transfer Provider) ioversoL [...] 2034 (Given - Provider: Cayla Toussaint RN) 043 (See Alternative - Provider: Migel Oliveira) 06 ([facility] Hold - Provider: Automatic Transfer Provider - Reason: Patient not available)0923 ([facility] Unhold - Provider: Automatic Transfer Provider) ondansetron ODT (ZOFRAN-ODT) disintegrating tablet 4 mg(Linked Group 1) 4 mg, oral, Every 6 hours PRN, nausea, vomiting, Starting on 10/02/23 at 2027, Indications: Nausea and Vomiting 2034 (See Alternative - Provider: Cayla Toussaint, BRIA) 0437 (Given - Provider: Migel Oliveira) 0626 ([facility] Hold - Provider: Automatic Transfer Provider - Reason: Patient not available)0923 ([facility] Unhold - Provider: Automatic Transfer Provider) oxyBUTYnin (DITROPAN) tablet 5 mg 5 mg, oral, 3 times daily PRN, Bladder spasms/discomfort, Starting on 10/02/23 at 2036, Indications: Ureteral stent discomfort 06 ([facility] Hold - Provider: Automatic Transfer Provider - Reason: Patient not available)0923 ([facility] Unhold - Provider: Automatic Transfer Provider) oxyCODONE [...] 1605 (Contrast Given - Provider: Anabel Pérez [facility] - Comment: Anabel administered) polyethylene glycol (MIRALAX) packet 17 g 17 g, oral, Daily PRN, constipation, Starting on Tue10/02/23 at 2051, Indications: constipation 06 ([facility] Hold - Provider: Automatic Transfer Provider - Reason: Patient not available)0923 ([employer] [facility] Unhold - Provider: Automatic Transfer Provider) prochlorperazine (COMPAZINE) injection 5 mg 5 mg, intravenous, Administer over 2 Minutes, Every 6 hours PRN, nausea, vomiting, 2nd line, Starting on Tue10/03/23 at 0755 0917 (Given - Provider: Naomi Mejia RN) 0626 ([facility] Hold - Provider: Automatic Transfer Provider - Reason: Patient not available)0923 ([facility] Unhold - Provider: Automatic Transfer Provider) ramelteon (ROZEREM) tablet 8 mg 8 mg, oral, Nightly PRN, sleep, Starting on Tue10/02/23 at 2051, Indications: Sleep-Onset Insomnia 2106 (Given - Provider: Migel Oliveira) 2051 (Given - Provider: Migel Oliveira) 0626 ([employer] [facility] Hold - Provider: Automatic Transfer Provider - Reason: Patient not available)0923 ([employer] [facility] Unhold - Provider: Automatic Transfer Provider) sodium chloride 0.9% flush 0.5-20 mL 0.5-20 mL, intra-catheter, As needed, line care, Starting on Tue10/02/23 at 2051, Flush volume based on line type and size. Flush before and after each use. 0626 (JUL Hold - Provider: Automatic Transfer Provider - Reason: Patient not available)0923 (JUL Unhold - Provider: Automatic Transfer Provider) sodium chloride 0.9% irrigation (CANCELED) As needed, Starting on Tue10/04/23 at 0736, Intra-Op 0735 (Given - Provider: Otoniel Landa [...] Ordered Date First Ordered Date acetaminophen (TYLENOL) suppository 650 mg 1 10/04/2023 acetaminophen (TYLENOL) tablet 1,000 mg 1 0 10/04/2023 albuterol 2.5 mg /3 mL (0.08 3 %) nebulizer solution 2.5 mg 1 10/04/2023 cefdinir (OMNICEF) capsule 300 mg 1 024 dextrose (D10W) 10% bolus 250 mL 2 10/04/19 dextrose (GLUTOSE) 40 % gel 15 g 1 10/04/19 24 dimenhyDRINATE (DRAMAMINE) tablet 25 mg 1 0 10/04/2023 diphenhydrAMINE (BENADRYL) 5 0 mg/mL injection 12.5 mg 1 10/04/2023 fentaNYL (SUBLIMAZE) preserv ative free injection 25 mcg 1 10/04/2023 fentaNYL (SUBLIMAZE) preserv ative free injection 50 mcg 2 10/04/2023 10/02/2023 gabapentin (NEURONTIN) capsule 300 mg 1 11/2023 glucagon injection 1 mg 1 10/04/2023 haloperidol (HALDOL) injection 1 mg 1 10/03 HYDROmorphone (DILAUDID) injection 0.2 mg 1 10/04/2023 HYDROmorphone (DILAUDID) injection 0.4 mg 1 10/04/2023 insulin lispro (HumaLOG, ADM ELOG) 100 unit/mL injection 0-5 Units 1 10/04/2023 labetaloL (NORMODYNE,TRANDAT E) injection 5 mg 1 10/04/2023 Lactated Ringer's (LR) infusion 1 lidocaine (PF) (XYLOCAINE) 1 0 mg/mL (1 %) preservative free injection 2-10 mg 1 10/04/2023 meperidine (DEMEROL) preserv ative free injection 12.5 mg 1 10/04/2023 naloxone (NARCAN) 0.4 mg/mL injection 0.04-0.4 mg 1 10/04/2023 ondansetron (ZOFRAN) injection 4 mg 3 10/0310/02/2023 oxyCODONE (ROXICODONE) tablet 5 mg 1 2023 racepinephrine (ASTHMANEFRIN ) 2.25 % nebulizer solution 0.5 mL 1 10/04/2023 sodium chloride 0.9% bolus 500 mL 1 024 sodium chloride 0.9% flush 0.5-20 mL 3 11/202310/02/2023 sodium chloride 0.9% infusion 2 10/04/2023 10/02/2023 HYDROcodone-acetaminophen (N ORCO) 5-325 mg per tablet 1 tablet 2 10/03/2023 10/02/2023 ibuprofen (ADVIL,MOTRIN) tablet 400 mg 1 perflutren protein-a (OPTISO N) 3 mL in sodium chloride 0.9% 8 mL syringe 1 10/03/2023 potassium chloride 20 mEq in sodium chloride 0.9% 250 mL IVPB 1 10/03/2023 prochlorperazine (COMPAZINE) injection 5 mg 1 10/03/2023 acetaminophen (TYLENOL) tablet 650 mg 1 09/2023 amitriptyline (ELAVIL) tablet 25 mg 1 10/01 amLODIPine (NORVASC) tablet 10 mg 1 024 capsaicin (ZOSTRIX) 0.025 % cream 1 Application 1 10/02/2023 Carrier Fluids for Secondary Infusion - 0.9% Sodium Chloride 1 10/02/2023 cefTRIAXone (ROCEPHIN) 1,000 mg/10 mL in sterile water (premix) 1,000 mg 1 10/02/2023 cefTRIAXone (ROCEPHIN) 2,000 mg/20 mL in sterile water (premix) 2,000 mg 1 10/02/2023 diazePAM (VALIUM) injection 2.5 mg 1 2023 dicyclomine (BENTYL) capsule 20 mg 1 2023 enoxaparin (LOVENOX) syringe 40 mg 1 2023 gabapentin (NEURONTIN) tablet 600 mg 1 09/2023 hydrALAZINE (APRESOLINE) tablet 50 mg 1 09/2023 hydrocortisone (ANUSOL-HC) 2 .5 % rectal cream 1 10/02/2023 HYDROmorphone (DILAUDID) injection 1 mg 2 0 10/02/2023 hyoscyamine (OSCIMIN) disint egrating tablet 125 mcg 1 10/02/2023 ioversoL (OPTIRAY 350) syringe 100 mL 1 09/2023 labetaloL (NORMODYNE,TRANDAT E) tablet 400 mg 1 10/02/2023 ondansetron ODT (ZOFRAN-ODT) disintegrating tablet 4 mg 1 10/02/2023 oxyBUTYnin (DITROPAN) tablet 5 mg 1 024 polyethylene glycol (MIRALAX) packet 17 g 1 10/02/2023 potassium chloride ER (KLOR- CON) extended release tablet 40 mEq 1 10/02/2023 QUEtiapine (SEROquel) tablet 50 mg 1 2023 ramelteon (ROZEREM) tablet 8 mg 1 senna-docusate (PERICOLACE) 8.6-50 mg per tablet 2 tablet 1 10/02/2023 sodium chloride 0.9% bolus 1,000 mL 1 10/01 tamsulosin (FLOMAX) extended release capsule 0.4 mg 1 10/02/2023 Nursing Count Last Ordered Date [...] 10/04/2023 documented in this encounter Care Teams Air Carrier Maintenance Inspector Relationship Specialty Start Date End Date Carl Strickland MD [address] [facility] [address] [place] [address] PCP - General Internal Medicine 06/06/23 Leo Manzano MD [address] [facility] [id number] [place] [address] Surgeon Vascular Surgery 05/16/23 documented as of this encounter
--- OUTSIDE RECORDS SUMMARY | 2024-05-30 05:35 | XMS_ITS | Encounter Summary ---
Author Organization [facility] Address [address] [place] [address] Phone Care Team Providers Care Residential Electrician Name Role Phone Leo Manzano MD Unavailable [phone] Carl Strickland MD Primary Care Provider Encounter Details Date Type Department Care Team (Latest Contact Info) Description 09/28/2023 Orders Only [facility] Scanning, Provider Social History Tobacco Use Types Packs/Day Years Used Date Smoking Tobacco: Never Smokeless Tobacco: Never Alcohol Use Standard Drinks/Week Comments Not Currently 0 (1 standard drink = 0.6 oz pur e alcohol) [facility] Utilities Answer Date Recorded In the past 12 months has [employer], gas, oil, or water [employer] threatened to shut off services in your home? Patient declined 10/02/2023 Social Connection and Isolation Panel [NHANES] A nswer Date Recorded In a typical week, how many times do you talk on the phone with family, friends, or neighbors? Patient declined 10/02/2023 How often do you get togethe r with friends or relatives? Patient declined 10/02/2023 How often do you attend taoism or pentecostal serv ices? Patient declined 10/02/2023 Do you belong to any clubs o r organizations such as taoism groups, unions, fraternal or athletic groups, or [...] to sleep or slept in a senior care (including now)? Patient declined 10/02/2023 Personal Safety Answer Date Recorded Have you ever been in or are you currently in a harmful physical or emotional relationship or is someone making you feel afraid or unsafe? 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 * Mariah Case RN - 09/28/2023 9:40 AM CDT Portal sent to pt with results. Await aknowledgement. * Mariah Case RN - 09/28/2023 9:40 AM CDT Pt read portal 10/02/2023. documented in this encounter Plan of Treatment Not on file documented as of this encounter Goals Goal Patient Goal Type Associated Problems Recent Progress Patient-Stated? Author CCM Chronic Pain Care Plan Chronic Care Management No change(05/16 2:51 PM MOBILITY SCOOTER REPAIRER) No Rita Landa, RN Note: Problem: Chronic Pain Goals: 1. Minimize further functional decline 2. Maximize quality of life 3. Control pain Strategies: - Activity/exercise program recommendation - Conservative stepwise pain medicine strategy with multi-disciplinary approach - Recommend healthy lifestyle strategies and compensatory methods as needed documented as of this encounter Procedures Procedure Name Priority Date/Time Associated Diagnosis Comments SCAN - LABS 10/14/2023 SCAN - LABS 09/28/2023 documented in this encounter Results * SCAN - LABS (10/14/2023) us Provider Scanning Final Result * SCAN - LABS (09/28/2023) us Provider Scanning Final Result documented in this encounter Visit Diagnoses Not on filedocumented in this encounter Care Teams Residential Electrician Relationship Specialty Start Date End Date Carl Strickland MD [address] [facility] [address] [place] [address] PCP - General Internal Medicine 06/06/23 Leo Manzano MD [address] [facility] [id number] [place] [address] Surgeon Vascular Surgery 05/16/23 documented as of this encounter
--- OUTSIDE RECORDS SUMMARY | 2024-05-30 05:35 | XMS_ITS | Encounter Summary ---
Author Organization [facility] Address [address] [place] [address] Phone Care Team Providers Care Animal Doctor Name Role Phone Leo Manzano MD Unavailable [phone] Carl Strickland MD Primary Care Provider Reason for Visit * Reason Comments Nephrolithiasis * Consultation (Routine) - Closed Specialty Diagnoses / Procedures Referred By Fernando alan Referred To Contact Urology Diagnoses Urinary retention Meron Parekh NP Phone: tel: fax: [facility] (All Locations) Referral ID Status Reason Start Date Expiration Date V isits Requested Visits Authorized [id number] Closed Specialty Services Required 05/16/2023 06/14/2024 1 1 Encounter Details Date Type Department Care Team (Late st Contact Info) Description 10/07/2023 10:00 AM CDT Office Visit [facility] ([facility]) - [facility] Urology [address] [facility] 11th [place] [address] [place] [address] Marcus Gamboa MD [address] [place], [place] [id number] Nephrolithiasis (Primary Dx); Urinary retention Social History Tobacco Use Types Packs/Day Years Used Date Smoking Tobacco: Never Smokeless Tobacco: Never Alcohol Use Standard Drinks/Week Comments Not Currently 0 (1 standard drink = 0.6 oz pur e alcohol) [facility] Utilities Answer Date Recorded In [...] How often do you attend mormon or denominational serv ices? 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 Gender Identity Not on file Sexual Orientation Straight 06/12/2023 11 :43 PM CLIENT SUCCESS DIRECTOR documented as of this encounter Ordered Prescriptions Prescription Sig Dispense Quantity Refills Last Filled Start Date End Date oxyCODONE (ROXICODONE) 5 mg immediate release tabletIndications: Pain Take 1 tablet (5 mg total) by mouth every 4 (four) hours as needed for pain 10 tablet 10/07/2023 02/28/2024 documented in this encounter Progress Notes * Marcus Gamboa MD - 10/07/2023 10:00 AM CDT Procedure: Office Flexible Cystourethroscopy with Ureteral Stent Removal Surgeon: Marcus Gamboa MD Indication: Eriberto Chau is a 33 y.o. male with nephrolithiasis s/p R URS and then stent reinsertion. Pre-procedure diagnosis: nephrolithiasis Post-procedure diagnosis: nephrolithiasis Description of Procedure: After patient was correctly identified, he was placed supine position. The external genitalia was prepped and draped in the usual fashion and lidocaine gel was instilled into the urethra. A well-lubricated cystoscope was carefully passed into urethral meatus. The anterior urethra revealed no pathology. The posterior urethra revealed no prostatic hypertrophy. The bladder was entered, the stent was identified, grasped, and removed. There were no urothelial lesions or stones. Specimens: none Estimated Blood Loss: 0 mL Devices/Drains: none placed Findings: Ureteral stent removed Complications: None Patient was given 1 tablet of antibiotic for jie-procedural prophylaxis. He was instructed to callif he experiences persistent dysuria, fevers or other symptoms of UTI. Assessment: Eriberto Chau is a 33 y.o. male with the following diagnoses: (N20.0) Nephrolithiasis (primary encounter diagnosis) Plan: Litholink 24Hr Urine Panel, Litholink 24Hr Urine Panel, Litholink 24Hr Urine Panel, Litholink 24Hr Urine Panel (R33.9) Urinary retention Plan: Ambulatory referral to Urology Plan: He will work on getting the litholinks completed and we will follow up for review for metabolic stone management. Orders: Orders Placed This Encounter Litholink 24Hr Urine Panel Standing Status: Future Number of Occurrences: 1 Standing Expiration Date: 10/06/2024 Litholink 24Hr Urine Panel Standing Status: Future Number of Occurrences: 1 Standing Expiration Date: 10/06/2024 oxyCODONE (ROXICODONE) 5 mg immediate release tablet Sig: Take 1 tablet (5 mg total) by mouth every 4 (four) hours as needed for pain Dispense: 10 tablet Refill: 0 Chief Complaint: Chief Complaint Patient presents with Nephrolithiasis History of Present Illness: Eriberto Chau is a 33 y.o. male with nephrolithiasis s/p R URS. He removed the stent on POD2 andhad significant pain such that he had the stent reinserted. Still having a lot of pain today. The patient's past medical, surgical, medication, allergy, family, and social histories were reviewed and noncontributory to this illness/condition except as noted below: The patient's past medical history is notable for: Past Medical History: Diagnosis Date Abdominal pain Anxiety Aortic dissection (HCC) Depression Hypertension Kidney stones Memory loss The patient's past surgical history is notable for: Past Surgical History: Procedure Laterality Date ABDOMINAL AORTIC ANEURYSM REPAIR The patient is currently taking the following medications: Current Outpatient Medications Medication Sig Dispense Refill [...] times a day as needed for pain cefdinir (OMNICEF) 300 mg capsule Take 1 capsule (300 mg total) by mouth 2 (two) times a day for 26doses 26 capsule 0 dicyclomine (BENTYL) 20 mg tablet Take 1 [...] as needed for pain 10 tablet 0 QUEtiapine (SEROquel) 50 mg tablet Take 1 tablet (50 mg total) by mouth nightly 30 tablet 1 senna-docusate (PERICOLACE) 8.6-50 mg Take 2 tablets by mouth 2 (two) times a day To prevent constipation 40 tablet 0 No current facility-administered medications for this visit. The patient is allergic to: Allergies Allergen [...] of Binge Drinking: Never Objective: Physical Exam There were no vitals filed for this visit. Gen: NAD Neuro: Alert, conversation appropriate Skin: No rashes or lesions of exposed skin Head: normocephalic Eyes: no strabismus Neck: trachea midline. Pulm: respirations non-labored CV: extremities and mucous membranes pink MSK: moves bilateral upper extremities without difficulty. ambulates without assistance The following lab results were personally reviewed by me: Lab Results Component Value Date GLUCOSE 96 10/04/2023 CALCIUM 8.6 10/04/2023 SODIUM 140 10/04/2023 POTASSIUM 3.6 10/04/2023 CO2 22 10/04/2023 CHLORIDE 104 10/04/2023 BUNSER 11 10/04/2023 CREATININE 1.56 (H) 10/04/2023 Lab Results Component Value Date WBC 5.7 10/04/2023 HGB 10.4 (L) 10/04/2023 HCT 32.9 (L) 10/04/2023 MCV 92.7 10/04/2023 LABPLAT 236 10/04/2023 Lab Results Component Value Date PTH 33 09/06/2023 CALCIUM 8.6 10/04/2023 CAION 4.88 09/06/2023 PHOS 2.6 07/06/2023 No results found for: PSA I personally reviewed the images for the following studies and my findings were: na Thank you for allowing us to participate in the care of this patient. Please do not hesitate to contact us should you have any questions or concerns at [phone]. documented in this encounter Plan of Treatment Scheduled Orders Name Type Priority Associated Diagnoses Orde r Schedule Litholink 24Hr Urine Panel Lab Routine Nephrolithiasis Expected: 10/07/2023, Expires: 10/06/2024 documented as of this encounter Goals Goal Patient Goal Type Associated Problems Recent Progress Patient-Stated? Author CCM Chronic Pain Care Plan Chronic Care Management No change(05/16 2:51 PM CLIENT SUCCESS DIRECTOR) No Rita Landa RN Note: Problem: Chronic Pain Goals: 1. Minimize further functional decline 2. Maximize quality of life 3. Control pain Strategies: - Activity/exercise program recommendation - Conservative stepwise pain medicine strategy with multi-disciplinary approach - Recommend healthy lifestyle strategies and compensatory methods as needed documented as of this encounter Procedures Procedure Name Priority Date/Time Associated Diagnosis Comments LITHOLINK 24HR URINE PANEL Routine 10/21/2023 4:55 PM CDT Nephrolithiasis documented in this encounter Results * (ABNORMAL) Litholink 24Hr Urine Panel (10/21/2023 4:55 PM CDT) Cystine, Urine, Qualitative Neg Negative [facility] - 01 Urine Volume (Preserved) 1,870 500 - 4,000 mL/24 hr [facility] - 01 Calcium Oxalate Saturation 5.66(L) 6.00 - 10.00 [facility] - 01 Calcium, Urine 186 <250 mg/24 hr [facility] - 01 Oxalate, Urine 41(H) 20 - 40 mg/24 hr [facility] - 01 Citrate, Urine 197(L) >450 mg/24 hr [facility] - 01 Calcium Phosphate Saturation 0.95 0.50 - 2.00 [facility] - 01 pH, 24 hr, Urine 6.046 5.800 - 6.200 [facility] - 01 Uric Acid Saturation 0.91 <1.00 [facility] - 01 Uric Acid, Urine 951(H) <800 mg/24 hr [facility] - 01 Sodium, Urine 334(H) 50 - 150 mmol/24 hr [facility] - 01 Potassium, Urine 50 20 - 100 mmol/24 hr [facility] - 01 Magnesium, Urine 94 30 - 120 mg/24 hr [facility] - 01 Phosphorus, Urine 1,127 600 - 1,200 mg/24 hr [facility] - 01 Ammonium, Urine 39 15 - 60 mmol/24 hr [facility] - 01 Chloride, Urine 343(H) 70 - 250 mmol/24 hr [facility] - 01 Sulfate, Urine 31 20 - 80 meq/24 hr [facility] - 01 Urea Nitrogen, Urine 10.68 6.00 - 14.00 g/24 hr [facility] - 01 Protein Catabolic Rate 0.9 0.8 - 1.4 g/kg/24 hr [facility] - 01 Creatinine, Urine 1,934 Not Applic. mg/24 hr [facility] - 01 Creatinine/Kg Body Weight 20.4 11.9 - 24.4 mg/24 hr/kg [facility] - 01 Calcium/Kg Body Weight 2.0 <4.0 mg/24 hr/kg [facility] - 01 Calcium/Creatin ine Ratio 96 34 - 196 mg/g creat [facility] - 01 Comment Note [facility] - 01 Urine 10/21/2023 4:55 PM CDT 10/26/2023 Narrative [facility] - 10/27/2023 3:07 AM CDT Performed at: ??01 - [facility] [address] ??[id number] Surface Plate Finisher: Yanely Mayer PhD, Phone: ??[phone] Marcus Gamboa MD LAB URINE ORDERABLE S Final Result [facility] - 01 documented in this encounter Visit Diagnoses Diagnosis Nephrolithiasis- Primary Calculus of kidney Urinary retention Unspecified retention of urine documented in this encounter Discontinued Medications Medication Sig Discontinue Reason Start Date End Da te HYDROcodone-acetaminophe n (NORCO) 5-325 mg per tabletIndications:Pain Take 1 tablet by mouth every 6 (six) hours as needed for pain 10/04/2023 10/07/2023 tamsulosin (FLOMAX) 0.4 mg extended release capsule Take 1 capsule (0.4 mg total) by mouth daily 09/26/2023 10/07/2023 documented as of this encounter Orders Outpatient Referral Count Last Ordered Date Fir st Ordered Date AMB REFERRAL TO UROLOGY 1 10/07/2023 documented in this encounter Care Teams Animal Doctor Relationship Specialty Start Date End Date Carl Strickland MD [address] [facility] [address] [place] [address] PCP - General Internal Medicine 06/06/23 Leo Manzano MD [address] [facility] [id number] [place] [address] Surgeon Vascular Surgery 05/16/23 documented as of this encounter
--- OUTSIDE RECORDS SUMMARY | 2024-05-30 05:35 | XMS_ITS | Encounter Summary ---
Author Organization [facility] Address [address] [place] [address] Phone Care Team Providers Care Absorption Plant Operator Helper Name Role Phone Leo Manzano MD Unavailable Carl Strickland MD Primary Care Provider Encounter Details Date Type Department Care Team (Late st Contact Info) Description 12/16/2023 Telephone [facility] Cardiology [address] [facility] Advanced Medicine 8th [place] [address] [place] [address] Joaquín Abarca MD [address] [place] [address] Social History Tobacco Use Types Packs/Day Years Used Date Smoking Tobacco: Never Smokeless Tobacco: Never Alcohol Use Standard Drinks/Week Comments Not Currently 0 (1 standard drink = 0.6 oz pur e alcohol) [facility] Utilities Answer Date Recorded In the past 12 months has [employer], gas, oil, or water company threatened [...] declined 10/02/2023 How often do you attend anabaptism or gnosticism serv ices? Patient declined 10/02/2023 Do you belong to any clubs o r organizations such as anabaptism groups, unions, fraternal or athletic groups, or [...] place to sleep or slept in a [place] facility (including now)? Patient declined 10/02/2023 Personal Safety Answer Date Recorded Have you ever been in or are you currently in a harmful physical or emotional relationship or is someone making you feel afraid or unsafe? Denies 10/04/2023 Sex and Gender Information Value Date Recorded Sex Assigned at Not on file Legal Sex Male 3:42 AM RUG SIZER Gender Identity Not on file Sexual Orientation Straight 06/12/2023 11 :43 PM RUG SIZER documented as of this encounter Miscellaneous Notes * Telephone Encounter - Idalia Macario RN - 12/16/2023 3:00 PM CDT No response to portal message confirming his January 01 telephone visit I talked with his Mom who confirmed pt is aware of his January 01 telephone visit as pt had talked with her documented in this encounter Plan of Treatment Not on file documented as of this encounter Goals Goal Patient Goal Type Associated Problems Recent Progress Patient-Stated? Author CCM Chronic Pain Care Plan Chronic Care Management No change(05/16 2:51 PM RUG SIZER) No Rita Landa, RN Note: Problem: Chronic Pain Goals: 1. Minimize further functional decline 2. Maximize quality of life 3. Control pain Strategies: - Activity/exercise program recommendation - Conservative stepwise pain medicine strategy with multi-disciplinary approach - Recommend healthy lifestyle strategies and compensatory methods as needed documented as of this encounter Visit Diagnoses Not on filedocumented in this encounter Care Teams Absorption Plant Operator Helper Relationship Specialty Start Date End Date Carl Strickland MD [address] [facility] [address] [place] [address] PCP - General Internal Medicine 06/06/23 Leo Manzano MD [address] [facility] [id number] [place] [address] Surgeon Vascular Surgery 05/16/23 documented as of this encounter
--- OUTSIDE RECORDS SUMMARY | 2024-05-30 05:35 | XMS_ITS | Encounter Summary ---
Author Organization [facility] Address [address] [place] [address] Care Team Providers Care Lone Lead Lineman Name Role Phone Leo Manzano MD Unavailable [phone] Carl Strickland MD Primary Care Provider Reason for Visit * Reason Comments Follow-up Encounter Details Date Type Department Care Team (Latest Contact Info) Description 11/14/2023 12:45 PM CDT - 11/14/2023 11:59 PM CDT Hospital Encounter [facility] [address] [place] [address] Advanced Medicine [address] [place] [address] Amanda Macias MD [address] [facility] [address] [place] [address] Neuropathic pain Discharge Disposition: Discharge to home or self care Social History Tobacco Use Types Packs/Day Years Used Date Smoking Tobacco: Never Smokeless Tobacco: Never Alcohol Use Standard Drinks/Week Comments Not Currently 0 (1 standard drink = 0.6 oz pur e alcohol) [facility] Utilities Answer Date Recorded In the [...] How often do you attend mandaeism or cheondoism serv ices? Patient declined 10/02/2023 Do you [...] place to sleep or slept in a nursing home (including now)? Patient declined 10/02/2023 Personal Safety Answer Date Recorded Have you ever been in or are you currently in a harmful physical or emotional relationship or is someone making you feel afraid or unsafe? 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 [] Opioid (Narcotic) Agreement signed and patient received copy. [] Side Effects of Opioid Medications given to patient Follow up with Dr. Macias DIET: [x] Resume normal diet [] See [facility] Post Discharge Procedure Information Sheet ACTIVITY: [] Resume normal activity [x] See [facility] Post Discharge Procedure Information Sheet FOLLOW UP APPOINTMENTS: [x] Follow up appointment: 6 weeks *Need help with MyChart? Call [phone]. Patient provided information and repeated back with understanding. If you need to reach us: For any questions about your procedure, please call the Pain Management Center [phone] (M-F) (8am-4pm) If you need urgent attention after 5 pm and weekends: Call the [facility] Manager Erp at [phone] and ask for the Pain Service doctor loss control consultant. * Attachments The following attachments cannot be sent through Care Everywhere. * Pregabalin (By mouth) (Belarusian) documented in this encounter Medications at Time [...] Refills Last Filled Start Date End Date pregabalin (LYRICA) 100 mg capsuleIndications :Fibromyalgia,Post operative Acute Pain,neuropathic pain Take 1 capsule (100 mg total) by mouth 2 (two) times a day 60 capsule 5 11/14/2023 4 documented in this encounter Discharge Disposition Disposition Code Departure Means Destination Discharge to home or self care documented in this encounter Progress Notes * Amanda Macias MD - 11/14/2023 1:30 PM CDT Pain Management Follow Up Note Patient Name: Eriberto Chau : 1990 Today's Date: 11/14/2023 PCP: Carl Strickland MD Referring: Venu Unknown [...] the past 6 months - not helpful Today Date: 11/14/2023 He returns to the [facility] for His low back pain. The pain is described as frequent, throbbing, stabbing, and punishing-cruel. It radiates to bilateral feet . His pain at its best-worse level is 5-10/10, respectively. Pain right now is 5/10 on the numeric pain scale. Pain is worse during morning. Pain is better during no specific time of the day. Provocative factors include walking, lifting, standing,bending, and turning. Alleviating factors include sitting and heat. Since the last visit, patient underwent R ureteroscopy with stent placement and stone extraction for obstructing ureteral stone at [facility]. He had left from the hospital on the same day, however presented POD 4 with bleeding and pain after pulling the ureteral stent. At the time, he was readmitted to [facility] for nephrolithiasis, renal insufficiency, and UTI. He underwent stent replacement on 10/04/23, which was removed by the office on 10/06. His pain greatly interferes with ADL's. Patient has done physical therapy: Yes. It was last done: 6 weeks within the last 6 months. It was helpful: No. HOME MEDICATIONS : acetaminophen (TYLENOL) 500 mg tablet amitriptyline (ELAVIL) 25 mg tablet amLODIPine (NORVASC) 10 mg tablet aspirin 81 mg chewable tablet capsaicin (ZOSTRIX) 0.025 % cream dicyclomine (BENTYL) 20 mg tablet ergocalciferol (VITAMIN D) 50,000 unit capsule gabapentin (NEURONTIN) 600 mg tablet hydrALAZINE (APRESOLINE) 50 mg tablet hydrocortisone (ANUSOL-HC) 2.5 % rectal cream hyoscyamine (LEVSIN) 0.125 mg SL tablet labetaloL (NORMODYNE,TRANDATE) 200 mg tablet lamoTRIgine (LaMICtal) 25 mg tablet ondansetron ODT (ZOFRAN-ODT) 4 mg disintegrating tablet oxyBUTYnin (DITROPAN) 5 mg tablet oxyCODONE (ROXICODONE) 5 mg immediate release tablet pregabalin (LYRICA) 75 mg capsule QUEtiapine (SEROquel) 50 mg tablet senna-docusate (PERICOLACE) 8.6-50 mg tamsulosin (FLOMAX) 0.4 mg extended release capsule Patient has various interventional therapies with some degree of success: Physical therapy: made things worse Results Allergies Allergen Reactions Lisinopril Angioedema Amoxicillin Hives Past Medical History: Diagnosis Date Abdominal pain Anxiety Aortic dissection (HCC) Depression Hypertension Kidney stones Memory loss Past Surgical History: Procedure Laterality Date ABDOMINAL AORTIC ANEURYSM REPAIR Social History Tobacco Use Smoking status: Never Smokeless tobacco: Never Substance and Sexual Activity Drug use: Not Currently Types: Marijuana Sexual activity: Defer Alcohol Use: Not At Risk (11/14/2023) AUDIT-C Frequency of Alcohol Consumption: Never Average Number of Drinks: Patient does not drink Frequency of Binge Drinking: Never Family History Problem Relation Age of Onset Depression Mother Anxiety disorder Mother Depression Father Anxiety disorder Sister Depression Sister Depression Brother Anxiety disorder Brother Review of Systems Review of Systems Constitutional: Positive for activity change. Musculoskeletal: Positive for back pain. Physical Exam There were no vitals filed for this visit. There is no height or weight on [...] palpation of spinal processes. Paraspinal muscle tenderness. [id number] SPINE: Tenderness at the lumbosacral region. Positive lumbar facet loading bilaterally.Range of motion of lumbar spine decreased. Decreased pain with lumbar flexion. Positive L SLR. LOWER EXTREMITIES: Normal range of motion. Normal muscle strength. SKIN: Pigmentation:generalized hypopigmentation NEUROLOGIC EXAM: Defer. PSYCHIATRIC: alert,oriented, in NAD with a full range of affect, normal behavior and no psychotic features Assessment No diagnosis found. The above note documents my personal evaluation of this patient. In addition, I have reviewed and confirmed with the patient and nurse the supportive information documented in today's scanned PatientHealth Questionnaire and Office Note. Plan 1. Intervention: No intervention needed at this current time R/B/A discussed, including but not limited to bleeding, infection, and possible nerve injury/paralysis. Alternatives (risks) include: medication managment (dependency), no intervention (increased pain). Patient understand risks/benefits/alternatives and agrees to proceed with injection. 2. Medications: a. Opioids: none b. Adjuvants: We will increase the patient's pregabalin to a goal of 100mg bid 3. Imaging: No further imaging needed at this current time 4. Referral: Encourage HEP 5. Follow-up: In 6 weeks for re-evaluation of the above regimen. Amanda Macias MD Fellow, Pain Management, Department of Anesthesiology [facility], [facility] 11/14/2023 1:55 PM Cosigned by Viry Fleming MD at 11/21/2023 1:35 PM CDT Associated attestation - Viry Fleming MD - 11/21/2023 1:35 PM CDT Fellow note reviewed. documented in this encounter Plan of Treatment Not on file documented as of this encounter Goals Goal Patient Goal Type Associated Problems Recent Progress Patient-Stated? Author CCM Chronic Pain Care Plan Chronic Care Management No change(05/16 2:51 PM MEDICAL LOGISTICS SPECIALIST) No Rita Landa, BRIA Note: Problem: Chronic Pain Goals: 1. Minimize further functional decline 2. Maximize quality of life 3. Control pain Strategies: - Activity/exercise program recommendation - Conservative stepwise pain medicine strategy with multi-disciplinary approach - Recommend healthy lifestyle strategies and compensatory methods as needed documented as of this encounter Visit Diagnoses Diagnosis Neuropathic pain documented in this encounter Discontinued Medications Medication Sig Discontinue Reason Start Date End Da te pregabalin (LYRICA) 75 mg capsuleIndications:Fibro myalgia,Postoperative Acute Pain,neuropathic pain Take 1 capsule (75 mg total) by mouth 2 (two) times a day 10/25/2023 11/14/2023 documented as of this encounter Historical Medications * This list may reflect changes made after this encounter. lamoTRIgine (LaMICtal) 25 mg tablet Take 1 tablet (25 mg total) by mouth daily tamsulosin (FLOMAX) 0.4 mg extended release capsule TAKE 1 CAPSULE BY MOUTH DAILY *TAKE WHILE STENT IS IN PLACE AND FOR THREE DAYS AFTER STENT REMOVAL added in this encounter Care Teams Lone Lead Lineman Relationship Specialty Start Date End Date Carl Strickland MD [address] [facility] [address] [place] [address] PCP - General Internal Medicine 06/06/23 Leo Manzano MD [address] [facility] [address] [place] [address] Surgeon Vascular Surgery 05/16/23 documented as of this encounter
--- OUTSIDE RECORDS SUMMARY | 2024-05-30 05:35 | XMS_ITS | Encounter Summary ---
Author Organization [facility] Healthcare Address [address] [place] [address] Care Team Providers Care Leader Tier Name Role Phone Leo Manzano MD Unavailable [phone] Carl Strickland MD Primary Care Provider Reason for Visit * Auth/Cert (Routine) Specialty Diagnoses / Procedures Referred By Contac t Referred To Contact Diagnoses Ureteral calculi Procedures na Referral ID Status Reason Start Date Expiration Date Visits Re quested Visits Authorized [id number] 1 1 Encounter Details Date Type Department Care Team (Late st Contact Info) Description 09/27/2023 4:47 PM CDT Anesthesia Event [facility] Operating Room [facility] [place] [address] Vandana Whitman MD [facility] [facility] [place] [address] Anesthesia Record Procedure Summary Procedure Name Responsible Anesthesiologist Anesthesia Start Time Anesthesia Stop Time CYSTOSCOPY RETROGRADE PYELOGRAM - RIGHT URETEROSCOPY, LASER , INSERTION RIGHT URETERAL STENT, BASKET STONE EXTRACTION (Right: Ureter) Vandana Whitman MD 09/27/23 1647 09/27/23 1751 Events Date Time Event Comment 09/27/2023 1554 1647 An Start 1647 In Room 1647 An Start Data 1650 An Induction The patient was reevaluated immediately before moderate or deep sedation use and before anesthesia induction. 1651 An LMA 1651 Anesthesia Ready 1659 Proc Start 1738 Proc Fin 1743 Airway Removed 174 an stop data 174 Out of Room 1751 Handoff to RN I completed my handoff [...] disposition at the time of handoff: PACU 1751 An Stop Meds Name Total lidocaine (cardiac) syringe 2 % 5 mL propofol 150 mg fentaNYL 100 mcg midazolam 2 mg ondansetron 4 mg dexamethasone 4 mg/ml 4 mg ceFAZolin 2,000 mg phenylephrine 100 mcg/mL syringe 800 mcg Lactated Ringer's (LR) infusion 0 mL * Agents Name O2 N2O Air Sevoflurane Inspired Sevoflurane * Blood No blood administrations on file. Lines, Drains, and Airways Type Details Placement Removal Peripheral IV Placement Date: 09/27/23; Placement Time: 121; Catheter Size: 20 G; Orientation: Anterior, Right; Location: Forearm; Site Prep: Chlorhexidine; Technique: Ultrasound guidance; Insertion Attempts: 1; Patient Tolerance: Tolerated well; Removal Date: 10/02/23; Removal Time: 1334; Removal Reason: Discharge 09/27/23 1212 by Catrachito Jordan RN 10/02/23 1334 by Silas Plascencia, EMT-P RETIRED Surgical Site 09/27/23; 1547; Pe nis; 05/01/24 (Retired LDA, Removed/Completed by [facility] with LDA Utility); 1213 (Retired LDA, Removed/Completed by [facility] with LDA Utility) 09/27/23 1547 by Lisa Desir, BRIA 05/01/24 1213 by Discharge Provider, Automatic Supraglottic Airway Placement Date: 09/27/23; Placement Time: 165 (created via procedure documentation); Mask Ventilation: 1; Size: 5; Insertion Attempts: 1; Removal Date: 09/27/23; Removal Time: 1743 09/27/23 1653 by Sheryl Hebert CRNA 09/27/23 1743 by Sheryl Hebert CRNA Ureteral Drain/Stent 09/27/23; 1732; Rig ht ureter; 6 Fr.; Yes; (got pulled out per pt) 09/27/23 1732 by Lisa Desir, RN 10/04/23 0858 by Taryn Izquierdo RN documented in this encounter Social History Tobacco Use Types Packs/Day Years Used Date Smoking Tobacco: Never Smokeless Tobacco: Never Alcohol Use Standard Drinks/Week Comments Not Currently 0 (1 standard drink = 0.6 oz pur e alcohol) [facility] Utilities Answer Date Recorded In the past 12 months has [employer], gas, oil, or water company threatened [...] declined 09/12/2023 How often do you attend jew or faith serv ices? Patient declined 09/12/2023 Do you belong to any clubs o r organizations such as jew groups, unions, fraternal or athletic groups, or [...] money to buy more. Never true 09/27/19 Within the past 12 months, t he [...] in a long-term (including now)? Patient declined 09/12/2023 Personal Safety Answer Date Recorded Have you ever been in or are you currently in a harmful physical or emotional relationship or is someone making you feel afraid or unsafe? 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 Gender Identity Not on file Sexual Orientation Straight 06/12/2023 11 :43 PM WELDING MACHINE OPERATOR ELECTROSLAG documented as of this encounter OR Notes * Anesthesia Postprocedure Evaluation - Diego Hankins MD - 09/27/2023 7:41 PM CDT Patient: Eriberto Chau Procedure Summary Date: 09/27/23 Room / Location: [facility] / [facility]PER[facility] Anesthesia Start: 1646 Anesthesia Stop: 1750 Procedure: CYSTOSCOPY RETROGRADE PYELOGRAM - RIGHT URETEROSCOPY, LASER , INSERTION RIGHT URETERAL STENT, BASKET STONE EXTRACTION (Right: Ureter) Diagnosis: (PAIN) Surgeons: Marcus Glass MD Responsible Provider: Vandana Whitman MD Anesthesia Type: general ASA Status: 2 Anesthesia Type: general Last vitals BP 121/76 Pulse 90 Temp 36.3 ??C (97.4 ??F) (Temporal) Resp 18 SpO2 95% Anesthesia Post Evaluation Patient location during evaluation: PACU Patient participation: complete - patient participated Level of consciousness: fully awake Pain management: adequate Airway patency: adequate Evidence of recall: no Cardiovascular status: acceptable Respiratory status: acceptable Hydration status: acceptable Pt is: normothermic Nausea/Vomiting status: none No notable events documented. * Anesthesia Procedure Notes - Sheryl Hebert CRNA - 09/27/2023 4:53 PM CDT Associated Order(s): Airway Airway Patient location: OR Urgency: elective Indications for airway management: anesthesia Difficult airway: no Staff: Placed by: GENERAL HOUSE WORKER: Sheryl Hebert CRNA Emergent airway documentation: Risks and benefits discussed: yes Consent obtained: yes Consent given by: patient Airway prep: Preoxygenated: yes Patient position: sniffing MILS maintained throughout: yes Mask difficulty assessment: 1 - vent by mask Sedation level during airway: GA Final airway details: Final airway type: supraglottic airway Final supraglottic airway: IGel SGA size: 5 Number of attempts: 1 * Anesthesia Preprocedure Evaluation - Vandana Whitman MD - 09/27/2023 3:39 [...] calculi 09/27/2023 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[facility]) 09/06/2023 Back pain at L4-L5 level 08/23/2023 PFO (patent foramen ovale) 07/05/2023 Ureteral stone 07/04/2023 Abdominal pain 07/04/2023 Other chronic pain 06/24/2023 Pseudoaneurysm following procedure ([facility]) ([facility]) 06/24/2023 Infrarenal abdominal aortic aneurysm, without rupture ([facility]) 06/13/2023 Polysubstance abuse ([facility]) ([facility]) 06/10/2023 Moderate malnutrition ([facility]) ([facility]) 06/09/2023 Dissection of abdominal aorta ([facility]) ([facility]) 06/03/2023 Urinary retention 05/16/2023 Epistaxis 05/13/2023 Pneumonia 05/13/2023 HTN (hypertension) 05/13/2023 Dissection of thoracoabdominal aorta ([facility]) ([facility]) 05/02/2023 Dissection of aorta, unspecified portion of aorta ([facility]) 05/01/2023 Past Medical History: Diagnosis Date Abdominal pain Anxiety Depression Hypertension Kidney stones Memory loss Past Surgical History: Procedure Laterality Date ABDOMINAL AORTIC ANEURYSM REPAIR Allergies Allergen Reactions Lisinopril Angioedema Amoxicillin Hives Med List Status: Pharmacy Complete Set By: Priscilla Pagan [facility] at 09/27/2023 1:59 PM Taking? Last Dose Start Date End Date Provider acetaminophen (TYLENOL) 500 mg tablet Unknown -- -- ProviderEli MD amitriptyline (ELAVIL) 25 mg tablet 09/26/2023 [...] (ZOSTRIX) 0.025 % cream Unknown -- -- Provider, Eli, MD dicyclomine (BENTYL) 20 mg tablet Past Month 09/09/23 09/08/24 Otoniel Ehcols MD Take 1 tablet (20 mg total) [...] mg extended release capsule 09/26/2023 09/26/23 -- Provider, MD Eli Current Facility-Administered Medications: fentaNYL (SUBLIMAZE) preservative free [...] Medication protocol when under care of a GENERAL HOUSE WORKER Planned anesthesia: General Team communication plan: LMA Induction: Induction: intravenous. Postoperative Plan: Postoperative administration opioids intended. No postoperative mechanical ventilation intended. Patient's planned disposition post procedure is Floor. Informed Consent: Discussed plan with GENERAL HOUSE WORKER. Anesthesia plan and risks discussed with patient. [...] Care Management No change(05/16 2:51 PM WELDING MACHINE OPERATOR ELECTROSLAG) No Rita Landa RN Note: Problem: Chronic Pain Goals: 1. Minimize further functional decline 2. Maximize quality of life 3. Control pain Strategies: - Activity/exercise program recommendation - Conservative stepwise pain medicine strategy with multi-disciplinary approach - Recommend healthy lifestyle strategies and compensatory methods as needed documented as of this encounter Procedures Procedure Name Priority Date/Time Associated Diagnosis Comments OR AN PROCEDURE PLACEHOLDER Routine 09/27/2023 4:53 PM CDT OR AN ELECTIVE SUPRAGLOTTIC AIRWAY Routine 09/27/2023 4:53 PM CDT documented in this encounter Results * OR AN ELECTIVE SUPRAGLOTTIC AIRWAY, OR AN PROCEDURE PLACEHOLDER (09/27/2023 4:53 PM CDT) Narrative Sheryl Hebert CRNA - 09/27/2023 4:53 PM CDT Sheryl Hebert CRNA ? 09/27/2023 ??4:53 PM Airway Patient location: OR Urgency: elective Indications for airway management: anesthesia Difficult airway: no Staff: Placed by: GENERAL HOUSE WORKER: Sheryl Hebert CRNA Emergent airway documentation: Risks and benefits discussed: yes Consent obtained: yes Consent given by: patient Airway prep: Preoxygenated: yes Patient position: sniffing MILS maintained throughout: yes Mask difficulty assessment: 1 - vent by mask Sedation level during airway: GA Final airway details: Final airway type: supraglottic airway Final supraglottic airway: IGel SGA size: 5 Number of attempts: 1 us Vandana Whitman MD ANESTHESIA ORDERAB LES Final Result documented in this encounter Visit Diagnoses Not on filedocumented in this encounter Administered Medications Inactive Administered Medications - up to 3 most recent administrations Medication Order MAR Action Action Date Dose Rate Site ceFAZolin (ANCEF) injection intravenous, Administer over 3 Minutes, As needed, Starting on Tue09/27/23 at 1658, Anesthesia Intra-op Given 09/27/2023 4:58 PM CDT 2,000 mg dexAMETHasone (DECADRON) 4 mg/mL injection intravenous, Administer over 2 Minutes, As needed, Starting on Tue09/27/23 at 1652, Anesthesia Intra-op Given 09/27/2023 4:52 PM CDT 4 mg fentaNYL (SUBLIMAZE) preservative free injection intravenous, As needed, Starting on Tue09/27/23 at 1650, Anesthesia Intra-op Given 09/27/2023 4:50 PM CDT 100 mcg Lactated Ringer's (LR) infusion 30 mL/hr, intravenous, Continuous, Starting on Tue09/27/23 at 1615 Rate/Dose Verify 09/27/2023 4:47 PM CDT 30 mL/hr New Bag 09/27/2023 3:51 PM CDT 30 mL/hr 30 mL/hr lidocaine (cardiac) (XYLOCAINE) preservative free injection intravenous, As needed, Starting on Tue09/27/23 at 1650, Anesthesia Intra-op, Indications: Ventricular ArrhythmiasIndications:Ventricular Arrhythmias Given 09/27/2023 4:50 PM CDT 5 mL midazolam (VERSED) 1 mg/mL preservative free injection intravenous, Administer over 2 Minutes, As needed, Starting on Tue09/27/23 at 1647, Anesthesia Intra-op Given 09/27/2023 4:47 PM CDT 2 mg ondansetron (ZOFRAN) injection intravenous, Administer over 2 Minutes, As needed, Starting on Tue09/27/23 at 1652, Anesthesia Intra-op Given 09/27/2023 4:52 PM CDT 4 mg phenylephrine (KARLI-SYNEPHRINE) 1 mg/10 mL (100 mcg/mL) in sodium chloride 0.9% (premix) intravenous, As needed, Starting on Tue09/27/23 at 1700, Anesthesia Intra-op Given 09/27/2023 5:35 PM CDT 100 mcg Given 09/27/2023 5:32 PM CDT 100 mcg Given 09/27/2023 5:28 PM CDT 200 mcg propofoL (DIPRIVAN) 10 mg/mL IV intravenous, As needed, Starting on Tue09/27/23 at 1650, Anesthesia Intra-op New Bag 09/27/2023 4:50 PM CDT 150 mg documented in this encounter Care Teams Leader Tier Relationship Specialty Start Date End Date Carl Strickland MD [address] [facility] [address] [place] [address] PCP - General Internal Medicine 06/06/23 Leo Manzano MD [address] [place] [address] Surgeon Vascular Surgery 05/16/23 documented as of this encounter
--- OUTSIDE RECORDS SUMMARY | 2024-05-30 05:35 | XMS_ITS | Encounter Summary ---
Author Organization [facility] Address [address] [facility] [address] [place] [address] Phone Care Team Providers Care Wheel Truer Name Role Phone Leo Manzano MD Unavailable Carl Strickland MD Primary Care Provider Reason for Visit * Reason Comments Return Patient * Consultation (Routine) - Authorized Specialty Diagnoses / Procedures Referred By Fernando alan Referred To Contact Vascular Surgery Diagnoses Dissection of abdominal aorta (CMS/HCC) (HCC) Aftercare following surgery of the circulatory system Carl Strickland MD [address] [facility] [address] [place] [address] Phone: tel: fax: Leo Manzano MD [address] [facility] [id number] [place] [address] Phone: tel: fax: Referral ID Status Reason Start Date Expiration Date Visits Requested Visits Authorized [id number] Authorized Specialty Services Required 06/07/2023 07/06/2024 12 12 Encounter Details Date Type Department Care Team (Late st Contact Info) Description 03/07/2024 3:00 PM CDT Office Visit [facility] Vascular Surgery [address] [place] [address] Medical Office Building [address] [place] [address] Leo Manzano MD [address] [place] [address] Dissection of abdominal aorta (CMS/HCC) (HCC); Aftercare following surgery of the circulatory system Social History Tobacco Use Types Packs/Day Years Used Date Smoking Tobacco: Never Smokeless Tobacco: Never Tobacco Cessation:Counseling Given: Not Answered Alcohol Use Standard Drinks/Week Comments Not Currently 0 (1 standard drink = 0.6 oz pur e alcohol) [facility] Utilities Answer Date Recorded In the past 12 months has [employer], gas, oil, or water [employer] threatened to shut off services in your home? Patient declined 10/02/2023 Social Connection and Isolation Panel [NHANES] A nswer Date Recorded In a typical week, how many times do you talk on the phone with family, friends, or neighbors? Patient declined 10/02/2023 How often do you get togethe r with friends or relatives? Patient declined 10/02/2023 How often do you attend faith or anglican serv ices? Patient declined 10/02/2023 Do you belong to any clubs o r organizations such as faith groups, unions, fraternal or athletic groups, or [...] place to sleep or slept in a longterm (including now)? Patient declined 10/02/2023 Personal Safety Answer Date Recorded Have you ever been in or are you currently in a harmful physical or emotional relationship or is someone making you feel afraid or unsafe? 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 Gender Identity Not on file Sexual Orientation Straight 06/12/2023 11 :43 PM CLEAN OUT DRILLER HELPER documented as of this encounter Last Filed Vital Signs Vital Sign Reading Time Taken Comments Blood Pressure 98/66 03/07/2024 3:04 PM CDT Pulse 63 03/07/2024 3:04 PM CDT Temperature - - Respiratory Rate - - Oxygen Saturation 97% 03/07/2024 3:04 PM CDT Inhaled Oxygen Concentration - - Weight 98.9 kg (218 lb) 03/07/2024 3:04 PM CDT Height 175.3 cm (5' 9 ) 03/07/2024 3:04 PM CDT Body Mass Index 32.19 03/07/2024 3:04 PM CDT documented in this encounter Progress Notes * Ann Goldstein MD - 03/07/2024 3:00 PM CDT Patient: Eriberto Chau Date of : 1990 Date of Service: 03/07/2024 RETURN OUTPATIENT VISIT HISTORY OF PRESENT ILLNESS: Eriberto Chau is a 33 y.o. 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 He presents for routine follow up today. He continues to have chronic backpain for which he sees pain managements and underwent a steroid infection on 02/27. He has returned to work with no major issues. He underwent a CT scan today which shows intact repair with no evidence of endoleak. REVIEW OF SYSTEMS: Positive for back pain. All other systems were reviewed and otherwise negative. The patient???s vascular health history was reviewed and signed by me dated 03/07/2024. PHYSICAL EXAMINATION: VITAL SIGNS: There were no vitals taken for this visit. HENT: Normocephalic and atraumatic. EYES: Pupils are equal and reactive to light bilaterally. NECK: Supple with no carotid bruits. CHEST: Clear to auscultation bilaterally. HEART: Regular rate and rhythm. ABDOMEN: Soft, nontender, nondistended. MUSCULOSKELETAL: Warm, well perfused NEURO: Grossly intact motor and sensory exam. SKIN: No visible rashes. No wounds noted. RADIOLOGY: I personally reviewed the CT scan which shows intact aortic repair which no evidence of malperfusion or endoleak. ASSESSMENT/PLAN: Mr. Chau is a 33 yo M w/ type B aortic dissection s/p TBE and dissection stents presenting for routine follow up. Doing well since last visit with slowly improving back pain. CT scan reviewed withno evidence of endoleak. Will plan to follow up in [address] scan. Cosigned by Leo Manzano MD at 03/14/2024 12:18 PM CDT Associated attestation - Leo Manzano MD - 03/14/2024 12:18 PM CDT I have seen and examined the patient. I agree with the findings and plan of care as documented in the resident/fellow's note. My total encounter time on 03/07/2024 was 20 minutes which was spent in the activities documented in the note. This includes time spent prior to the visit and after the visitin direct care of the patient. This time does not include time spent in any separately reportable services. documented in this encounter Plan of Treatment Not on file documented as of this encounter Goals Goal Patient Goal Type Associated Problems Recent Progress Patient-Stated? Author CCM Chronic Pain Care Plan Chronic Care Management No change(05/16 2:51 PM CLEAN OUT DRILLER HELPER) No Rita Landa, BRIA Note: Problem: Chronic Pain Goals: 1. Minimize further functional decline 2. Maximize quality of life 3. Control pain Strategies: - Activity/exercise program recommendation - Conservative stepwise pain medicine strategy with multi-disciplinary approach - Recommend healthy lifestyle strategies and compensatory methods as needed documented as of this encounter Visit Diagnoses Diagnosis Dissection of abdominal aorta (CMS/HCC) (HCC) Dissection of aorta, abdominal Aftercare following surgery of the circulatory system Aftercare following surgery of the circulatory system, NEC documented in this encounter Orders Outpatient Referral Count Last Ordered Date st Ordered Date AMB REFERRAL TO VASCULAR SURGERY 1 03/07/20 documented in this encounter Care Teams Wheel Truer Relationship Specialty Start Date End Date Carl Strickland MD [address] [facility] [address] [place] [address] PCP - General Internal Medicine 06/06/23 Leo Manzano MD [address] [place] [address] Surgeon Vascular Surgery 05/16/23 documented as of this encounter
--- OUTSIDE RECORDS SUMMARY | 2024-05-30 05:35 | XMS_ITS | Encounter Summary ---
Author Organization [facility] Address [address] [place] [address] Phone Care Team Providers Care Clothing And Textiles Teacher Name Role Phone Leo Manzano MD Unavailable [phone] Carl Strickland MD Primary Care Provider Encounter Details Date Type Department Care Team (Latest Contact Info) Description 11/10/2023 Orders Only [facility] Scanning, Provider Social History Tobacco Use Types Packs/Day Years Used Date Smoking Tobacco: Never Smokeless Tobacco: Never Alcohol Use Standard Drinks/Week Comments Not Currently 0 (1 standard drink = 0.6 oz pur e alcohol) [facility] Utilities Answer Date Recorded In the past 12 months has [employer], gas, oil, or water [employer] threatened to shut off services in your home? Patient declined 10/02/2023 Social Connection and Isolation Panel [NHANES] A nswer Date Recorded In a typical week, how many times do you talk on the phone with family, friends, or neighbors? Patient declined 10/02/2023 How often do you get togethe r with friends or relatives? Patient declined 10/02/2023 How often do you attend orthodox or yazidism serv ices? Patient declined 10/02/2023 Do you belong to any clubs o r organizations such as orthodox groups, unions, fraternal or athletic groups, [...] on file Legal Sex Male 3:42 AM MILLER FIRST Gender Identity Not on file Sexual Orientation Straight 06/12/2023 11 :43 PM MILLER FIRST documented as of this encounter Progress Notes * Idalia Macario RN - 11/10/2023 11:59 PM CDT Note attached BMP from November 10 2023 received today 12/05/2023 Previous labs dated 10/03 BUN 11/Cr 1.56 done in house with pyelonephritis Dc'd on 10/03 Pt evaluated in office with Dr Abarca on 11/27 - BMP ordered Does he need a repeat BMP? * Joaquín Abarca MD - 11/10/2023 11:59 PM CDT Lab fine No repeat at this time * Idalia Macario RN - 11/10/2023 11:59 PM CDT Mom aware labs from November 09 received today\ and reviewed per Dr Abarca- who felt no further labsat this time Mom reports pt had labs drawn yesterday with Dr Strickland and she will have the results faxed to our office documented in this encounter Plan of Treatment Not on file documented as of this encounter Goals Goal Patient Goal Type Associated Problems Recent Progress Patient-Stated? Author CCM Chronic Pain Care Plan Chronic Care Management No change(05/16 2:51 PM MILLER FIRST) No Rita Landa, BRIA Note: Problem: Chronic Pain Goals: 1. Minimize further functional decline 2. Maximize quality of life 3. Control pain Strategies: - Activity/exercise program recommendation - Conservative stepwise pain medicine strategy with multi-disciplinary approach - Recommend healthy lifestyle strategies and compensatory methods as needed documented as of this encounter Procedures Procedure Name Priority Date/Time Associated Diagnosis Comments SCAN - LABS 11/10/2023 documented in this encounter Results * SCAN - LABS (11/10/2023) us Provider Scanning Final Result documented in this encounter Visit Diagnoses Not on filedocumented in this encounter Care Teams Clothing And Textiles Teacher Relationship Specialty Start Date End Date Carl Strickland MD [address] [facility] [address] [place] [address] PCP - General Internal Medicine 06/06/23 Leo Manzano MD [address] [place] [address] Surgeon Vascular Surgery 05/16/23 documented as of this encounter
--- OUTSIDE RECORDS SUMMARY | 2024-05-30 05:35 | XMS_ITS | Encounter Summary ---
Author Organization [facility] Healthcare Address [address] [place] [address] Care Team Providers Care Cartridge Feeder Name Role Phone Leo Manzano MD Unavailable [phone] Carl Strickland MD Primary Care Provider Reason for Visit * Reason Onset Date Comments PMC Preprocedure 02/24/2024 Encounter Details Date Type Department Care Team (Late st Contact Info) Description 02/24/2024 Telephone [facility] [address] [facility] Advanced Medicine [address] [place] [address] Adrianne Adams MD PhD [address] [facility] [address] [place] [address] [facility] Preprocedure Social History Tobacco Use Types Packs/Day Years Used Date Smoking Tobacco: Never Smokeless Tobacco: Never Alcohol Use Standard Drinks/Week Comments Not Currently 0 (1 standard drink = 0.6 oz pur e alcohol) [facility] Utilities Answer Date [...] often do you attend oriental orthodox or quaker serv ices? 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 Author CCM Chronic Pain Care Plan Chronic Care Management No change(05/16 2:51 PM LEAD WEB APPLICATION DEVELOPER) No Rita Landa, BRIA Note: Problem: Chronic Pain Goals: 1. Minimize further functional decline 2. Maximize quality of life 3. Control pain Strategies: - Activity/exercise program recommendation - Conservative stepwise pain medicine strategy with multi-disciplinary approach - Recommend healthy lifestyle strategies and compensatory methods as needed documented as of this encounter Visit Diagnoses Not on filedocumented in this encounter Care Teams Cartridge Feeder Relationship Specialty Start Date End Date Carl Strickland MD [address] [facility] [address] [place] [address] PCP - General Internal Medicine 06/06/23 Leo Manzano MD [address] [facility] [address] [place] [address] Surgeon Vascular Surgery 05/16/23 documented as of this encounter
--- OUTSIDE RECORDS SUMMARY | 2024-05-30 05:35 | XMS_ITS | Encounter Summary ---
Author Organization [facility] Address [address] [place] [address] Phone Care Team Providers Care Wine Merchant Name Role Phone Leo Manzano MD Unavailable [phone] Carl Strickland MD Primary Care Provider Encounter Details Date Type Department Care Team (Latest Contact Info) Description 12/07/2023 Orders Only [facility] Scanning, Provider Social History Tobacco Use Types Packs/Day Years Used Date Smoking Tobacco: Never Smokeless Tobacco: Never Alcohol Use Standard Drinks/Week Comments Not Currently 0 (1 standard drink = 0.6 oz pur e alcohol) [facility] Utilities Answer Date Recorded In the past 12 months has [employer], gas, oil, or water [employer] threatened to shut off services in your home? Patient declined 10/02/2023 Social Connection and Isolation Panel [NHANES] A nswer Date Recorded In a typical week, how many times do you talk on the phone with family, friends, or neighbors? Patient declined 10/02/2023 How often do you get togethe r with friends or relatives? Patient declined 10/02/2023 How often do you attend adventist or quaker serv ices? 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 Cholesterol is very high. Has he spoken to his primary care physician about the high LDL cholesterol. I would recommend treating that. Let us know if he would like us to treat the high cholesterol level * Idalia Macario RN - 12/07/2023 9:48 AM CDT I contacted the pts Mom as pt works long hours- she reports she manges his messages - aware we are concerned about his high LDL and wondered if his PCP had addressed this Mom report his PCP has not contacted him as of today- ( she reports their office calls her as well)she reports as far as se knows no one has discussed his high cholesterol * Joaquín Abarca MD - 12/07/2023 9:48 AM CDT Let us know if we can help. Happy to be involved * Joaquín Abarca MD - 12/07/2023 9:48 AM CDT In next 4 weeks * Pretty Zabala. - 12/07/2023 9:48 AM CDT I tried to call patient, preferred number is his mother. She advised that we send some suggested appointments through the portal and he could call us back. I will send a message in the portal asking him to call in to schedule, as the appointments that are currently available could be taken by thetime he calls back. * Mariah Case RN - 12/07/2023 9:48 AM CDT See portal message. documented in this encounter Plan of Treatment Not on file documented as of this encounter Goals Goal Patient Goal Type Associated Problems Recent Progress Patient-Stated? Author CCM Chronic Pain Care Plan Chronic Care Management No change(05/16 2:51 PM MEDICAL ADMINISTRATIVE TECHNICIAN) No Rita Landa, RN Note: Problem: Chronic Pain Goals: 1. Minimize further functional decline 2. Maximize quality of life 3. Control pain Strategies: - Activity/exercise program recommendation - Conservative stepwise pain medicine strategy with multi-disciplinary approach - Recommend healthy lifestyle strategies and compensatory methods as needed documented as of this encounter Procedures Procedure Name Priority Date/Time Associated Diagnosis Comments SCAN - LABS 12/07/2023 documented in this encounter Results * SCAN - LABS (12/07/2023) us Provider Scanning Final Result documented in this encounter Visit Diagnoses Not on filedocumented in this encounter Care Teams Wine Merchant Relationship Specialty Start Date End Date Carl Strickland MD [address] [place] [address] PCP - General Internal Medicine 06/06/23 Leo Manzano MD [address] [place] [address] Surgeon Vascular Surgery 05/16/23 documented as of this encounter
--- OUTSIDE RECORDS SUMMARY | 2024-05-30 05:35 | XMS_ITS | Encounter Summary ---
Author Organization [facility] Address [address] [place] [address] Phone Care Team Providers Care V Belt Finisher Name Role Phone Leo Manzano MD Unavailable [phone] Carl Strickland MD Primary Care Provider Encounter Details Date Type Department Care Team (Late st Contact Info) Description 04/24/2024 Orders Only [facility] Nephrology [address] [facility] Advanced Medicine 5th [place] [address] [place] [address] Miguel Dominguez MD [address] [facility] [address] [place] [address] ANGI (acute kidney injury) (HCC) (Primary Dx); Primary hypertension; Anemia, unspecified type; Screening for hematuria or proteinuria Social History Tobacco Use Types Packs/Day Years Used Date Smoking Tobacco: Never Smokeless Tobacco: Never Alcohol Use Standard Drinks/Week Comments Not Currently 0 (1 standard drink = 0.6 oz pur e alcohol) [facility] Utilities Answer Date Recorded In [...] How often do you attend yarsanism or protestant serv ices? 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 Gender Identity Not on file Sexual Orientation Straight 06/12/2023 11 :43 PM CYBER INSTRUCTOR documented as of this encounter Plan of Treatment Scheduled Orders Name Type Priority Associated Diagnoses Orde r Schedule CBC with auto differential Lab Routine ANGI (acute kidney injury) ([facility]) Primary hypertension Anemia, unspecified type Screening for hematuria or proteinuria Expected: 04/24/2024, Expires: 04/24/2025 Renal function panel Lab Routine AGNI (acute kidney injury) ([facility]) Primary hypertension Anemia, unspecified type Screening for hematuria or proteinuria Expected: 04/24/2024, Expires: 04/24/2025 Urinalysis reflex to microscopic and culture Urine, clean voided Microbiology Routine ANGI (acute kidney injury) ([facility]) Primary hypertension Anemia, unspecified type Screening for hematuria or proteinuria Expected: 04/24/2024, Expires: 04/24/2025 documented as of this encounter Goals Goal Patient Goal Type Associated Problems Recent Progress Patient-Stated? Author CCM Chronic Pain Care Plan Chronic Care Management No change(05/16 2:51 PM CYBER INSTRUCTOR) Rita Sarmiento, RN Note: Problem: Chronic Pain Goals: 1. Minimize further functional decline 2. Maximize quality of life 3. Control pain Strategies: - Activity/exercise program recommendation - Conservative stepwise pain medicine strategy with multi-disciplinary approach - Recommend healthy lifestyle strategies and compensatory methods as needed documented as of this encounter Visit Diagnoses Diagnosis ANGI (acute kidney injury) ([facility])- Primary Primary hypertension Unspecified essential hypertension Anemia, unspecified type Screening for hematuria or proteinuria Screening for unspecified condition documented in this encounter Care Teams V Belt Finisher Relationship Specialty Start Date End Date Carl Strickland MD [address] [facility] [address] [place] [address] PCP - General Internal Medicine 06/06/23 Leo Manzano MD [address] [facility] [address] [place] [address] Surgeon Vascular Surgery 05/16/23 documented as of this encounter
--- OUTSIDE RECORDS SUMMARY | 2024-05-30 05:35 | XMS_ITS | Encounter Summary ---
Author Organization [facility] Healthcare Address [address] [place] [address] Care Team Providers Care Digital Circuit Designer Name Role Phone Leo Manzano MD Unavailable [phone] Carl Strickland MD Primary Care Provider Reason for Referral * Diagnostic Imaging (Routine) - Closed Specialty Diagnoses / Procedures Referred By Fernando alan Referred To Contact Diagnoses Nephrolithiasis Procedures US Kidney Complete Marcus Gamboa MD Phone: tel: fax: [address] [address] Referral ID Status Reason Start Date Expiration Date Visits Re quested Visits Authorized [id number] Closed 07/06/2023 08/04/2024 1 1 Reason for Visit * Diagnostic Imaging (Routine) - Closed Specialty Diagnoses / Procedures Referred By Fernando alan Referred To Contact Diagnoses Nephrolithiasis Procedures US Kidney Complete Marcus Gamboa MD Phone: tel: fax: [address] [address] Referral ID Status Reason Start Date Expiration Date Visits Re quested Visits Authorized [id number] Closed 07/06/2023 08/04/2024 1 1 Encounter Details Date Type Department Care Team (Latest Contact Info) Description 10/07/2023 8:33 AM CDT - 10/07/2023 11:59 PM CDT Hospital Encounter [facility] [address] [place] [address] Nephrolithiasis Discharge Disposition: Discharge to home or self care Social History Tobacco Use Types Packs/Day Years Used Date Smoking Tobacco: Never Smokeless Tobacco: Never Alcohol Use Standard Drinks/Week Comments Not Currently 0 (1 standard drink = 0.6 oz pur e alcohol) [facility] Utilities Answer Date Recorded In [...] declined 10/02/2023 How often do you attend mandaen or zoroastrian serv ices? 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 TACK CUTTER Gender Identity Not on file Sexual Orientation Straight 06/12/2023 11 :43 PM TACK CUTTER documented as of this encounter Medications at [...] (three) times a day 90 tablet 11 4 06/24/19 25 hydrocortisone (ANUSOL-HC) 2.5 % [...] 3 (three) times a day 02/28/20 24 labetaloL (NORMODYNE,TRANDATE ) 200 mg tablet Take 2 tablets (400 mg total) by mouth 2 (two) times a day 120 tablet 1 4 11/08/19 24 oxyCODONE (ROXICODONE) 5 mg immediate release tabletIndications:P ain Take 1 tablet (5 mg total) by mouth every 4 (four) hours as needed for pain 10 tablet 4 02/28/20 24 QUEtiapine (SEROquel) 50 mg tablet Take [...] Chronic Care Management No change(05/16 2:51 PM TACK CUTTER) No Rita Landa, RN Note: Problem: Chronic Pain Goals: 1. Minimize further functional decline 2. Maximize quality of life 3. Control pain Strategies: - Activity/exercise program recommendation - Conservative stepwise pain medicine strategy with multi-disciplinary approach - Recommend healthy lifestyle strategies and compensatory methods as needed documented as of this encounter Procedures Procedure Name Priority Date/Time Associated Diagnosis Comments US KIDNEY COMPLETE Schedule Routine, Read Routine (OP Routine) 10/07/2023 9:12 AM CDT Nephrolithiasis documented in this encounter Results * US Kidney Complete (10/07/2023 9:12 AM CDT) Anatomical Region Laterality Modality Kidney N/A Ultrasound 10/07/2023 9:29 AM CDT Impressions 10/07/2023 9:29 AM CDT 1. ??Nonobstructive right-sided nephrolithiasis with two 6 mm calculi seen within the right mid and inferior pole. ??No residual right-sided hydronephrosis compared to the prior 10/02/2023 CT. 2. ??Partial visualization of the right nephroureteral stent, with the distal aspect positioned within the urinary ??bladder. ??The proximal aspect is not well visualized. Electronically signed by: Tiffany Sosa M.D. Narrative 10/07/2023 9:29 AM CDT EXAMINATION: COMPLETE RENAL SONOGRAM HISTORY: ??33-year-old man with nephrolithiasis status post recent stone extraction on 09/27/2023 and 10/04/2023 with persistent right flank pain. COMPARISON: ??10/02/2023 CT FINDINGS: ?? Kidneys: The echogenicity of both kidneys is normal. The kidneys are normal in size. ??The right kidney measures 10.3 cm in length, and the left, 10.3 cm in length. There is no hydronephrosis in either kidney, with interval resolution of previous right hydronephrosis following recent nephrolithotomy and stent placement. ??The proximal aspect of the stent is not well visualized but appears to have been located within the region of the renal pelvis on the prior 10/04/2023 fluoroscopic images. There is right-sided nephrolithiasis with a ??6 mm calculus seen within the right midpole as well as an additional 6 mm calculus in the inferior pole both with associated twinkle artifact and posterior acoustic shadowing. No residual hydronephrosis. No left-sided renal calculi are seen. ?? Bladder: The urinary bladder is normal. The distal aspect of the right-sided nephroureteral stent is seen within the urinary bladder. Procedure Note Tiffany Sosa MD - 10/07/2023 EXAMINATION: COMPLETE RENAL SONOGRAM HISTORY: 33-year-old man with nephrolithiasis status post recent stone extraction on 09/27/2023 and 10/04/2023 with persistent right flank pain. COMPARISON: 10/02/2023 CT FINDINGS: Kidneys: The echogenicity of both kidneys is normal. The kidneys are normal in size. The right kidney measures 10.3 cm in length, and the left, 10.3 cm in length. There is no hydronephrosis in either kidney, with interval resolution of previous right hydronephrosis following recent nephrolithotomy and stent placement. The proximal aspect of the stent is not well visualized but appears to have been located within the region of the renal pelvis on the prior 10/04/2023 fluoroscopic images. There is right-sided nephrolithiasis with a 6 mm calculus seen within the right midpole as well as an additional 6 mm calculus in the inferior pole both with associated twinkle artifact and posterior acoustic shadowing. No residual hydronephrosis. No left-sided renal calculi are seen. Bladder: The urinary bladder is normal. The distal aspect of the right-sided nephroureteral stent is seen within the urinary bladder. IMPRESSION: 1. Nonobstructive right-sided nephrolithiasis with two 6 mm calculi seen within the right mid and inferior pole. No residual right-sided hydronephrosis compared to the prior 10/02/2023 CT. 2. Partial visualization of the right nephroureteral stent, with the distal aspect positioned within the urinary bladder. The proximal aspect is not well visualized. Electronically signed by: Tiffany Sosa M.D. [facility] Qiana Gamboa MD [facility] US PROCEDURES F inal Result documented in this encounter Visit Diagnoses Diagnosis Nephrolithiasis Calculus of kidney documented in this encounter Care Teams Digital Circuit Designer Relationship Specialty Start Date End Date Carl Strickland MD [address] [facility] 1 [place] [address] PCP - General Internal Medicine 06/06/23 Leo Manzano MD [address] [place] [address] Surgeon Vascular Surgery 05/16/23 documented as of this encounter
--- OUTSIDE RECORDS SUMMARY | 2024-05-30 05:35 | XMS_ITS | Encounter Summary ---
Author Organization [facility] Address [address] [place] [address] Phone Care Team Providers Care Gas Shovel Operator Name Role Phone Leo Manzano MD Unavailable [phone] Carl Strickland MD Primary Care Provider Encounter Details Date Type Department Care Team (Late st Contact Info) Description 11/08/2023 Orders Only [facility] Cardiology [address] [facility] Advanced Medicine 8th [place] [address] [place] [address] Mariah Case RN Social History Tobacco Use Types Packs/Day Years Used Date Smoking Tobacco: Never Smokeless Tobacco: Never Alcohol Use Standard Drinks/Week Comments Not Currently 0 (1 standard drink = 0.6 oz pur e alcohol) [facility] Utilities Answer Date Recorded In the past 12 months has [employer], gas, oil, or water company threatened [...] declined 10/02/2023 How often do you attend alevism or spiritism serv ices? 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 Author CCM Chronic Pain Care Plan Chronic Care Management No change(05/16 2:51 PM RIBBON HANKING MACHINE OPERATOR) No Rita Landa RN Note: Problem: Chronic Pain Goals: 1. Minimize further functional decline 2. Maximize quality of life 3. Control pain Strategies: - Activity/exercise program recommendation - Conservative stepwise pain medicine strategy with multi-disciplinary approach - Recommend healthy lifestyle strategies and compensatory methods as needed documented as of this encounter Visit Diagnoses Not on filedocumented in this encounter Discontinued Medications Medication Sig Discontinue Reason Start Date End Da te labetaloL (NORMODYNE,TRANDATE) 200 mg tablet Take 2 tablets (400 mg total) by mouth 2 (two) times a day Reorder 09/09/2023 11/08/2023 documented as of this encounter Care Teams Gas Shovel Operator Relationship Specialty Start Date End Date Carl Strickland MD [address] [facility] 1 [place] [address] PCP - General Internal Medicine 06/06/23 Leo Manzano MD [address] [facility] [address] [place] [address] Surgeon Vascular Surgery 05/16/23 documented as of this encounter
--- OUTSIDE RECORDS SUMMARY | 2024-05-30 05:36 | XMS_ITS | Encounter Summary ---
Author Organization [facility] Healthcare Address [address] [place] [address] Care Team Providers Care Cathode Builder Name Role Phone Leo Manzano MD Unavailable [phone] Carl Strickland MD Primary Care Provider Reason for Referral * Consultation (Routine) - Pending Review Specialty Diagnoses / Procedures Referred By Contac t Referred To Contact Pain Management Diagnoses [place] [address] [place] [address] 1 [place] [address] Phone: tel: fax: [address] [address] Referral ID Status Reason Start Date Expiration Date Visits Requested Visits Authorized [id number] Pending Review Specialty Services Required 07/14/2023 08/12/2024 1 1 Question Answer Please select the performing region: [facility] [152] # of visits: 1 Reason for Visit * Reason Comments Initial Consult * Consultation (Routine) - Pending Review Specialty Diagnoses / Procedures Referred By Contac t Referred To Contact Pain Management Diagnoses Other [place] [address] [place] [address] 1 [place] [address] Phone: tel: fax: [facility] [address] [facility] [place] [address] Referral ID Status Reason Start Date Expiration Date Visits Requested Visits Authorized [id number] Pending Review Specialty Services Required 07/14/2023 08/12/2024 1 1 Encounter Details Date Type Department Care Team (Latest Contact Info) Description 09/27/2023 9:10 AM CDT - 09/27/2023 11:59 PM CDT Hospital Encounter [facility] [place] [facility] [address] [facility] [address] [place] [address] Amanda Macias MD [address] [facility] [address] [place] [address] Hilaria Blankenship MD PhD [address] [facility] [address] [facility] [phone] [place] [address] Neuropathic pain (Primary Dx); Other chronic pain Discharge Disposition: Discharge to home or self care Social History Tobacco Use Types Packs/Day Years Used Date Smoking Tobacco: Never Smokeless Tobacco: Never Alcohol Use Standard Drinks/Week Comments Not Currently 0 (1 standard drink = 0.6 oz pur e alcohol) [facility] Utilities Answer Date Recorded In the past 12 months has [employer], gas, oil, or water [employer] threatened to shut off services in your home? Patient declined 09/12/2023 Social Connection and Isolation Panel [NHANES] A nswer Date Recorded In a typical week, how many times do you talk on the phone with family, friends, or neighbors? Patient declined 09/12/2023 How often do you get togethe r with friends or relatives? Patient declined 09/12/2023 How often do you attend sabianist or yarsanism serv ices? Patient declined 09/12/2023 Do you [...] or rent on time? Patient declined 09/12/19 24 In the last 12 months, how many places have you lived? 0 09/12/2023 In the last 12 months, was t here a time when you did not have a steady place to sleep or slept in a prison (including now)? Patient declined 09/12/2023 Personal Safety Answer Date Recorded Have you ever been in or are you currently in a harmful physical or emotional relationship or is someone making you feel afraid or unsafe? 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 Gender Identity Not on file Sexual Orientation Straight 06/12/2023 11 :43 PM SOUND RANGING CREWMEMBER documented as of this encounter Last Filed Vital Signs Vital Sign Reading Time Taken Comments Blood Pressure 90/60 09/27/2023 9:31 AM CDT Pulse 81 09/27/2023 9:31 AM CDT Temperature 36.4 ??C (97.5 ??F) 09/27/2023 9:31 AM CD T Respiratory Rate 16 09/27/2023 9:31 AM CDT Oxygen Saturation 97% 09/27/2023 9:31 AM CDT Inhaled Oxygen Concentration - - Weight 96.6 kg (212 lb 14.4 oz) 09/27/2023 9:31 AM CDT Height 175.3 cm (5' 9 ) 09/27/2023 9:31 AM CDT Body Mass Index 31.44 09/27/2023 9:31 AM CDT documented in this encounter Discharge Instructions * Patient Instructions* Kristine Finn, BRIA - 09/27/2023 9:30 AM CDT [facility] DISCHARGE INSTRUCTIONS MEDICATIONS: [x] Continue your current home medications Start: Pregabalin 75 mg, twice a day [x] Notify your pharmacy for refill(s) 7 days before you are out of your medication. [] Opioid (Narcotic) Agreement signed and patient received copy. [] Side Effects of Opioid Medications given to patient PROCEDURE at today's visit: DIET: [x] Resume normal diet [] See [facility] Post Discharge Procedure Information Sheet ACTIVITY: [x] Resume normal activity [] See [facility] Post Discharge Procedure Information Sheet REFERRALS: Physical Therapy [] [facility] Physical Therapy ([phone]) [] G[facility] (Graded Motor Imagery) [] [facility] ([phone]) Option 1 [] GMI (Graded Motor Imagery) [] [facility] ([phone]) [] Other: Behavior Medicine [] Pain Psychologist, [facility] Pain Psychology Please call to schedule appointment [phone] or [phone] Diagnostic Test(s): May get Radiographs performed in Radiation/X-Ray 6th floor, [address]. [] Please call to schedule MRI or CT scan at [phone] [] Please call to schedule EMG at [phone] EDUCATION provided on the following: [] Spinal Cord Stimulator Education and DVD. Vendor: FOLLOW UP APPOINTMENTS: [] Return as needed [] Follow up appointment: We will contact you the next business [...] work required 2 hours before procedure: [] Grinder Set Up Operator Universal needed for next procedure [] Pre Procedure instructions will be sent through [employer] or by phone two working days prior to procedure. *Need help with [employer]? Call [phone]. Patient provided information and repeated back with understanding. If you need to reach us: For any questions about your procedure, please call the Pain Management Center [phone] (M-F) (8am-4pm) If you need urgent attention after 5 pm and weekends: Call the [facility] Soup Person at [phone] and ask for the Pain Service doctor chemist water purification. * Attachments The following attachments cannot be sent through Care Everywhere. * Pregabalin (By mouth) (Hebrew) documented in this encounter Medications at Time [...] Filled Start Date End Date pregabalin (LYRICA) 75 mg capsuleIndications :Fibromyalgia,Post operative Acute Pain,neuropathic pain Take 1 capsule (75 mg total) by mouth 2 (two) times a day 60 capsule 5 09/27/2023 4 documented in this encounter Discharge Disposition Disposition Code Departure Means Destination Discharge to home or self care documented in this encounter Progress Notes * Amanda Macias MD - 09/27/2023 9:30 AM CDT Patient Name: Eriberto Chau : 1990 Today's Date: 09/27/2023 PCP: Carl Strickland MD Referring: Carl Strickland, * Chief Complaint Patient presents with Initial Consult HPI: Mr. Eriberto Chau is a 33 y.o. male who was referred for consultation regarding treatment recommendations for management of pain in the low back and stomach. His chronic back pain started in April 2023 following aortic repair surgery with lumbar drains that required multiple attempts. His pain greatly interferes with ADL's. Pain ranges from 7-10/10, on average it is 7/10. Pain is always present but it is worse in the morning and does not get better any time of the day. Pain is described as throbbing, shooting, stabbing, aching, heavy, tender, tiring-exhausting, sickening, fearful, punishing-cruel. Pain is worse with walking, lifting, bending, standing, rest, light touch, strain. Pain is better with lying, sitting, heat, medications. Patient was admitted to the hospital on [...] amitriptyline 25mg qhs,and started meloxicam 50mg qD. Of note, patient was diagnosed with a large kidney stone from the ED. He is planning to go to [facility] today for further evaluation and possible surgical removal. Pain Assessment Pain Score: 7 Pain Location: Back (Lumbar) Pain Radiating Towards: right side of abdomen Pain Frequency: Constant/continuous Pain Onset: Ongoing Previous injections: None Prior pain medications: Gabapentin Lyrica Amitriptyline Hydrocodone Oxycodone Morphine Tramadol APAP Ibuprofen Meloxicam Flexeril Robaxin Physical Therapy: Has completed 6 weeks of PT within the past 6 months - not helpful Patient's Medications New Prescriptions PREGABALIN (LYRICA) 75 MG CAPSULE Take 1 capsule (75 mg total) by mouth 2 (two) times a day Authorizing Provider: Hilaria Blankenship MD PhD Notes: No benefit from gabapentin Previous Medications ACETAMINOPHEN 500 MG CAPSULE Take 2 capsules (1,000 mg total) by mouth every 6 (six) hours Authorizing Provider: Otoniel Echols MD Notes: -- AMITRIPTYLINE (ELAVIL) 25 MG TABLET Take 1 tablet (25 mg total) by mouth nightly Authorizing Provider: Otoniel Echols MD Notes: -- AMLODIPINE (NORVASC) 10 MG TABLET Take 1 tablet (10 mg total) by mouth daily Authorizing Provider: Cristobal Chopra MD Notes: -- ASPIRIN 81 MG CHEWABLE TABLET Take 1 tablet (81 mg total) by mouth daily Authorizing Provider: Meron Parekh NP Notes: -- CAPSAICIN (ZOSTRIX) 0.025 % CREAM Apply topically 2 (two) times a day Authorizing Provider: Claudia Monk MD Notes: -- CYCLOBENZAPRINE (FLEXERIL) 10 MG TABLET Take 1 tablet (10 mg total) by mouth 3 (three) times a day as needed for muscle spasms Authorizing Provider: Leo Manzano MD Notes: -- DICYCLOMINE (BENTYL) 20 MG TABLET Take 1 tablet (20 mg total) by mouth every 6 (six) hours as needed (For abdominal pain) Authorizing Provider: Otoniel Echols MD Notes: -- ERGOCALCIFEROL (VITAMIN D) 50,000 UNIT CAPSULE Take 1 capsule (50,000 Units total) by mouth once a week for 7 doses Authorizing Provider: Otoniel Echols MD Notes: -- GABAPENTIN (NEURONTIN) 600 MG TABLET Take 1 tablet (600 mg total) by mouth 3 (three) times a day Authorizing Provider: Otoniel Echols MD Notes: -- HYDRALAZINE (APRESOLINE) 50 MG TABLET Take 1 tablet (50 mg total) by mouth 3 (three) times a day Authorizing Provider: Cristobal Chopra MD Notes: -- HYDROCORTISONE (ANUSOL-HC) 2.5 % RECTAL CREAM Insert into the rectum 2 (two) times a day as needed for hemorrhoids Authorizing Provider: Otoniel Echols MD Notes: -- LABETALOL (NORMODYNE,TRANDATE) 200 MG TABLET Take 2 tablets (400 mg total) by mouth 2 (two) times aday Authorizing Provider: Otoniel Echols MD Notes: -- LIDOCAINE (ASPERCREME) 4 % ADHESIVE PATCH,MEDICATED Place 2 patches on the skin daily Authorizing Provider: Otoniel Echols MD Notes: -- ONDANSETRON ODT (ZOFRAN-ODT) 4 MG DISINTEGRATING TABLET Take 1 tablet (4 mg total) by mouth every 8(eight) hours as needed for nausea or vomiting Authorizing Provider: Meron Parekh NP Notes: -- QUETIAPINE (SEROQUEL) 50 MG TABLET Take 1 tablet (50 mg total) by mouth nightly Authorizing Provider: Otoniel Echols MD Notes: -- SENNA-DOCUSATE (PERICOLACE) 8.6-50 MG Take 2 tablets by mouth 2 (two) times a day To prevent constipation Authorizing Provider: Meron Parekh NP Notes: -- Modified Medications No medications on file Discontinued Medications No medications on file Allergies Allergen Reactions Lisinopril Angioedema Amoxicillin Hives Past Medical History: Diagnosis Date Abdominal pain Anxiety Depression Hypertension Kidney stones Memory loss Past Surgical History: Procedure Laterality Date ABDOMINAL AORTIC ANEURYSM REPAIR No family history on file. Social History Tobacco Use Smoking status: Never Smokeless tobacco: Never Substance and Sexual Activity Drug use: Not Currently Sexual activity: Not on file Alcohol Use: Not At Risk (07/04/2023) AUDIT-C Frequency of Alcohol Consumption: Never Average Number of Drinks: Patient does not drink Frequency of Binge Drinking: Never Review of Systems: Review of Systems Constitutional: Positive for malaise/fatigue and weight loss. HENT: Positive for congestion. Eyes: Positive for blurred vision and photophobia. Respiratory: Positive for cough. Gastrointestinal: Positive for abdominal pain, nausea and vomiting. Genitourinary: Positive for flank pain, frequency and hematuria. Musculoskeletal: Positive for myalgias. Neurological: Positive for dizziness, tingling and weakness. Psychiatric/Behavioral: Positive for depression and memory loss. The patient is nervous/anxious. Lab Results Component Value Date WBC 7.0 09/08/2023 HGB 12.2 (L) 09/08/2023 HCT 37.7 (L) 09/08/2023 MCV 87.7 09/08/2023 LABPLAT 283 09/08/2023 Most Recent : Vitals BP 90/60 Pulse 81 Temp 97.5 ??F (36.4 ??C) Resp 16 Ht 175.3 cm (5' 9 ) Wt 96.6 kg (212 lb 14.4 oz) SpO2 97% BMI 31.44 kg/m?? Physical Exam: General: No acute distress, conversant HEENT: Anicteric sclerae. Normocephalic, atraumatic. Hearing grossly normal. Neck: Trachea midline. Cardiovascular: No edema or cyanosis noted Respiratory: Unlabored breathing. Normal effort. No audible wheeze/stridor. Abdomen: Not examined Musculoskeletal: Gait: using cane Full range of motion bilateral upper extremities and lower extremities C-SPINE: Spurling Test negative bilaterally, cervical facet loading negative bilaterally T-SPINE: Mild tenderness. L-SPINE: Paraspinal muscular spasm, tenderness at lumbar region. SLR positive bilaterally Some facet tenderness darshan; lumbar facet loading positive bilaterally SI joint tenderness, TANJA, [place], Compression tests positive bilaterally Hip tenderness: negative bilaterally FADIR: negative bilaterally Log roll: negative bilaterally Neurologic: Motor: 5/5 Darshan UEs and LEs. Sensation to light touch: normal bilaterally Please check the appropriate box(es) and fill in blanks as needed. Neurologic: [x] Alert and oriented x 3 [x] Cranial nerves grossly intact II-XII [x] Sensation intact bilaterally to gross touch Reflexes Wrist Biceps Triceps Knee Ankle Left [] [] [] [] [] Right [] [] [] [] [] Psychiatric: Normal mood, affect, insight. Skin: Warm. No rashes or lesions in the visible skin. Lab/Radiology/Diagnostic Review: Lab and Radiology Findings reviewed, Clinical significance noticed. Lab Results Component Value Date CREATININE 1.22 09/08/2023 MRI Sacrum Coccyx WO Contrast 09/08/2023 MRI Lumbar Spine WO Contrast Result Date: [...] it. Electronically signed by: Buffy Chang M.D. ASSESSMENTS: 33 year old male with chronic low back pain following aortic endovascular repair with new onset acute abdominal pain in the setting of nephrolithiasis. Encounter Diagnoses Name Primary? Other chronic pain Neuropathic pain Yes The above note documents my personal evaluation of this patient. In addition, I have reviewed and confirmed with the patient and nurse the supportive information documented in today's scanned PatientHealth Questionnaire and Office Note. PLAN: Following treatment recommendations were discussed in detail with patient. Analgesics: Start pregabalin 75mg bid. Discontinue gabapentin 600mg tid. Interventions: None at this time. PT and Pain Psychology: Encourage HEP Images and Labs: MRI lumbar spine reviewed with patient. Referrals including surgery, neurology, rheumatology and other specialty referrals: Patient to go to [facility] ED to be evaluated for abdominal pain and nephrolithiasis with need for possible surgery. Other modalities (including implants) None at this time Follow ups: 6-8 weeks for reevaluation of regimen. Amanda Macias MD Fellow, Pain Management [facility], [facility] Cosigned by Hilaria Blankenship MD PhD at 09/27/2023 5:11 PM CDT Associated attestation - Hilaria Blankenship MD PhD - 09/27/2023 5:11 PM CDT I have seen and examined the patient on 09/27/23. I agree with the findings and plan of care as documented in the resident's/fellow's note.. Patient in severe pain, low BP, sweating. Expressed concerns that he should go to the ED now for known kidney stone. documented in this encounter Plan of Treatment Scheduled Referrals Name Type Priority Associated Diagnoses Order Schedule Ambulatory referral to Pain Management Outpatient Referral Routine Other chronic pain Once for 1 Occurrences starting 09/27/2023 until 09/27/2023 documented as of this encounter Goals Goal Patient Goal Type Associated Problems Recent Progress Patient-Stated? Author CCM Chronic Pain Care Plan Chronic Care Management No change(05/16 2:51 PM SOUND RANGING CREWMEMBER) No Rita Landa RN Note: Problem: Chronic Pain Goals: 1. Minimize further functional decline 2. Maximize quality of life 3. Control pain Strategies: - Activity/exercise program recommendation - Conservative stepwise pain medicine strategy with multi-disciplinary approach - Recommend healthy lifestyle strategies and compensatory methods as needed documented as of this encounter Visit Diagnoses Diagnosis Neuropathic pain- Primary Other chronic pain documented in this encounter Discontinued Medications Medication Sig Discontinue Reason Start Date End Da te gabapentin (NEURONTIN) 600 mg tablet Take 1 tablet (600 mg total) by mouth 3 (three) times a day 09/09/2023 09/27/2023 carvediloL (COREG) 25 mg tablet Take 1 tablet (25 mg total) by mouth Therapy completed 08/27/2023 09/27/2023 documented as of this encounter Historical Medications * This list may reflect changes made after this encounter. tamsulosin (FLOMAX) 0.4 mg extended release capsule Take 1 capsule (0.4 mg total) by mouth daily 09/26/2023 10/07/2023 ferrous sulfate 325 mg (65 mg of elemental iron) tablet 09/20/2023 09/27/2023 carvediloL (COREG) 25 mg tablet Take 1 tablet (25 mg total) by mouth 08/27/2023 09/27/2023 added in this encounter Care Teams Cathode Builder Relationship Specialty Start Date End Date Carl Strickland MD [address] [facility] 1 [place] [address] PCP - General Internal Medicine 06/06/23 Leo Manzano MD [id number] [place] [address] Surgeon Vascular Surgery 05/16/23 documented as of this encounter
--- OUTSIDE RECORDS SUMMARY | 2024-05-30 05:36 | XMS_ITS | Encounter Summary ---
Author Organization [facility] Healthcare Address [address] [place] [address] Care Team Providers Care Vice President Name Role Phone Leo Manzano MD Unavailable [phone] Carl Strickland MD Primary Care Provider Reason for Referral * Consultation (Routine) - Pending Review Specialty Diagnoses / Procedures Referred By Contnazia t Referred To Contact Pain Management Diagnoses Other chronic pain Carl Strickland MD [address] [place] [address] Phone: tel: fax: [address] [address] Referral ID Status Reason Start Date Expiration Date Visits Requested Visits Authorized [id number] Pending Review Specialty Services Required 07/14/2023 08/12/2024 1 1 Question Answer Please select the performing region: [facility] [152] # of visits: 1 K PUSHER Encounter Details Date Type Department Care Team (Late st Contact Info) Description 07/14/2023 Orders Only [facility] [place] [facility] [address] [place] [address] [address] Carl Strickland MD [address] [facility] 1 [place] [address] Other chronic pain (Primary Dx) Social History Tobacco Use Types Packs/Day Years Used Date Smoking Tobacco: Never Smokeless Tobacco: Never Alcohol Use Standard Drinks/Week Comments Not Currently 0 (1 standard drink = 0.6 oz pur e alcohol) [facility] Utilities Answer Date Recorded In the past 12 months has e [employer], gas, oil, or water [employer] threatened to shut off services in your home? No 07/06/2023 Social Connection and Isolat ion Panel [NHANES] Answer Date Recorded In a typical week, how many times do you talk on the phone with family, friends, or neighbors? More than three times a week 07/06/2023 How often do you get togethe r with friends or relatives? More than three times a week 07/06/2023 How often do you attend [facility] or moravian services? More than 4 times per year 07/06/2023 Do you belong to any clubs o r organizations such as moravian groups, unions, fraternal or athletic groups, or school groups? No 07/06/2023 How often do you attend meet ings of the clubs or organizations you belong to? Never 07/06/2023 Are you , , di vorced, , never , or living with a partner? Living with partner 07/06/2023 AUDIT-C Answer Date Recorded Q1: How often do you have a drink containing alcohol? Never 07/04/2023 Q2: How many drinks containi ng alcohol do you have on a typical day when you are drinking? Patient does not drink Q3: How often do you have si x or more drinks on one occasion? Never 07/04/2023 Overall Financial Resource Strain (CARDIA) Answe r Date Recorded How hard is it for you to pa y for the very basics like food, housing, medical care, and heating? Somewhat hard 07/06/2023 PHQ-2 Answer Date Recorded PHQ-2 Total Score (If total score is 3 or more points, staff should administer the PHQ-9) 0 06/24/2023 Hunger Vital Sign Answer Date Recorded Within the past 12 months, y ou worried that your food would run out before you got the money to buy more. Never true 07/06/19 24 Within the past 12 months, t he food you bought just didn't last and you didn't have money to get more. Never true 07/06/2023 PRAPARE - Transportation Answer Date Re corded In the past 12 months, has l ack of transportation kept you from medical appointments or from getting medications? No 11/2023 In the past 12 months, has l ack of transportation kept you from meetings, work, or from getting things needed for daily living? No 07/06/2023 Housing Stability Vital Sign Answer Caden e Recorded In the last 12 months, was t here a time when you were not able to pay the mortgage or rent on time? No 07/06/2023 In the last 12 months, how many places have you lived? 1 07/06/2023 In the last 12 months, was t here a time when you did not have a steady place to sleep or slept in a residential (including now)? 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 1 [place] [address] PCP - General Internal Medicine 06/06/23 Leo Manzano MD [address] [facility] [id number] [place] [address] Surgeon Vascular Surgery 05/16/23 documented as of this encounter
--- OUTSIDE RECORDS SUMMARY | 2024-05-30 05:36 | XMS_ITS | Encounter Summary ---
Author Organization [facility] Address [address] [place] [address] Care Team Providers Care Professor Sculpture Name Role Phone Leo Manzano MD Unavailable [phone] Carl Strickland MD Primary Care Provider Genevieve Hunt RN Unavailable [phone] Reason for Visit * Reason Comments Declined Enrollment Encounter Details Date Type Department Care Team (Late st Contact Info) Description 09/12/2023 SHOP/CHAP Initial Outreach [facility] OP CASE MANAGEMENT [address] [place] [address] Genevieve Hunt, RN [address] [facility] [address] [place], [place] [id number] Social History Tobacco Use Types Packs/Day Years Used Date Smoking Tobacco: Never Smokeless Tobacco: Never Alcohol Use Standard Drinks/Week Comments Not Currently 0 (1 standard drink = 0.6 oz pur e alcohol) [facility] Utilities Answer Date Recorded [...] declined 09/12/2023 How often do you attend spiritism or yazdanism serv ices? Patient declined 09/12/2023 Do you belong to any clubs o r organizations such as spiritism groups, unions, fraternal or athletic groups, or [...] place to sleep or slept in a penitentiary (including now)? Patient declined 09/12/2023 Personal Safety Answer Date Recorded Have you ever been in or are you currently in a harmful physical or emotional relationship or is someone making you feel afraid or unsafe? Denies 09/05/2023 Sex and Gender Information Value Date Recorded Sex Assigned at Not on file Legal Sex Male 3:42 AM [employer] Gender Identity Not on file Sexual Orientation Straight 06/12/2023 11 :43 PM [employer] documented as of this encounter Plan of Treatment Not on file documented as of this encounter Visit Diagnoses Not on filedocumented in this encounter Care Teams Professor Sculpture Relationship Specialty Start Date End Date Carl Strickland MD [address] [facility] [address] [place] [address] PCP - General Internal Medicine 06/06/23 Leo Manzano MD [id number] [place] [address] Surgeon Vascular Surgery 05/16/23 Genevieve Hunt RN [address] [facility] [address] [place] [address] SHOP 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
--- OUTSIDE RECORDS SUMMARY | 2024-05-30 05:36 | XMS_ITS | Encounter Summary ---
Author Organization [facility] Healthcare Address [address] [facility] [place] [address] Care Team Providers Care Steeple Jack Name Role Phone Leo Manzano MD Unavailable [phone] Carl Strickland MD Primary Care Provider Reason for Visit * Reason Comments Abdominal Pain Vomiting Encounter Details Date Type Department Care Team (Late st Contact Info) Description 07/26/2023 3:46 PM NETWORK OPERATIONS TECHNICIAN - 07/26/2023 9:58 PM NETWORK OPERATIONS TECHNICIAN Emergency [facility] [address] [place] [address] Nigel Ramsey MD [address] [place] [address] Abdominal pain (Primary Dx); Nausea and vomiting, unspecified vomiting type Discharge Disposition: Discharge to home or self care Social History Tobacco Use Types Packs/Day Years Used Date Smoking Tobacco: Never Smokeless Tobacco: Never Alcohol Use Standard Drinks/Week Comments Not Currently 0 (1 standard drink = 0.6 oz pur e alcohol) [facility] Utilities Answer Date Recorded In [...] week 07/06/2023 How often do you attend chur ch or [facility] services? More than 4 times per year [...] a [place] [facility] [place] (including now)? No 07/06/2023 Personal Safety Answer Date Recorded Have you ever been in or are you currently in a harmful physical or emotional relationship or is someone making you feel afraid or unsafe? Denies 07/26/2023 Sex and Gender Information Value Date Recorded Sex Assigned at Not on file Legal Sex Male 3:42 AM NETWORK OPERATIONS TECHNICIAN Gender Identity Not on file Sexual Orientation Straight 06/12/2023 11 :43 PM NETWORK OPERATIONS TECHNICIAN documented as of this encounter Last Filed Vital Signs Vital Sign Reading Time Taken Comments Blood Pressure 132/97 07/26/2023 7:30 PM NETWORK OPERATIONS TECHNICIAN Pulse 90 07/26/2023 7:30 PM NETWORK OPERATIONS TECHNICIAN Temperature 36.6 ??C (97.9 ??F) 07/26/2023 2:43 PM CS T Respiratory Rate 10 07/26/2023 7:30 PM NETWORK OPERATIONS TECHNICIAN Oxygen Saturation 96% 07/26/2023 7:30 PM NETWORK OPERATIONS TECHNICIAN Inhaled Oxygen Concentration - - Weight 97.5 kg (215 lb) 07/26/2023 2:43 PM NETWORK OPERATIONS TECHNICIAN Height 175.3 cm (5' 9 ) 07/26/2023 2:43 PM NETWORK OPERATIONS TECHNICIAN Body Mass Index 31.75 07/26/2023 2:43 PM NETWORK OPERATIONS TECHNICIAN documented in this encounter Discharge Instructions * Discharge Instructions* Claudia Monk MD - 07/26/2023 9:33 PM NETWORK OPERATIONS TECHNICIAN Today we evaluated you for abdominal pain. Your visit was reassuring and no indications for admission or surgery were found at this time. We are happy you are feeling better. Your CT scan was reassuring. It did not show signs of infection or concerning features. It did not show concerns for worsening aortic dissection. It is concerning that your symptoms may be related to marijuana use. This is something called Cannabis Hyperemesis Syndrome. It typically improves with heat and hot showers. We have a prescribed two medications to help with symptoms including Reglan for nausea and Capsaicin cream for pain (apply this to your abdomen). The ultimate treatment is to stop smoking marijuana. Please keep all other appointments as scheduled and take all other medications as prescribed. ORK OPERATIONS TECHNICIAN ORK OPERATIONS TECHNICIAN documented in this encounter Medications at Time of Discharge amLODIPine (NORVASC) 10 mg tablet Take 1 tablet (10 mg total) by mouth daily 30 tablet 4 06/25/19 25 aspirin 81 mg chewable tablet Take 1 tablet (81 mg total) by mouth daily 30 tablet 11 3 hydrALAZINE (APRESOLINE) 50 mg tablet Take 1 tablet (50 mg total) by mouth 3 (three) times a day 90 tablet 4 06/24/19 25 ondansetron ODT (ZOFRAN-ODT) 4 mg disintegrating tablet Take 1 tablet (4 mg total) by mouth every 8 (eight) hours as needed for nausea or vomiting 10 tablet 3 senna-docusate (PERICOLACE) 8.6-50 mg Take 2 tablets by mouth 2 (two) times a day To prevent constipation 40 tablet 3 capsaicin (ZOSTRIX) 0.025 % cream Apply topically 2 (two) times a day 60 g 4 09/27/19 24 carvediloL (COREG) 12.5 mg tablet Take 2 tablets (25 mg total) by mouth 2 (two) times a day with meals 120 tablet 11 4 09/09/19 24 ferrous sulfate 325 mg (65 mg of elemental iron) tablet Take 1 tablet (325 mg total) by mouth 3 (three) times a day with meals 4 09/09/19 24 gabapentin (NEURONTIN) 300 mg capsule Take 1 capsule (300 mg total) by mouth 3 (three) times a day 90 capsule 1 4 09/09/19 24 metoclopramide (REGLAN) 10 mg tablet Take 1 tablet (10 mg total) by mouth every 6 (six) hours 30 tablet 4 08/23/19 24 oxyBUTYnin XL (DITROPAN-XL) 10 mg 24 hr tablet Take 1 tablet (10 mg total) by mouth daily for 14 days 14 tablet 4 08/23/19 24 oxyCODONE (ROXICODONE) 5 mg immediate release tabletIndications:P ain Take 1 tablet (5 mg total) by mouth every 4 (four) hours as needed for pain 30 tablet 4 08/24/19 24 QUEtiapine (SEROquel) 50 mg tablet Take 1 tablet (50 mg total) by mouth nightly 30 tablet 3 08/24/19 24 tamsulosin (FLOMAX) 0.4 mg extended release capsule Take 1 capsule (0.4 mg total) by mouth daily with dinner for 15 days 15 capsule 4 08/23/19 24 documented as of this encounter Ordered Prescriptions Prescription Sig Dispense Quantity Refills Last Filled Start Date End Date capsaicin (ZOSTRIX) 0.025 % cream Apply topically 2 (two) times a day 60 g 07/26/2023 4 metoclopramide (REGLAN) 10 mg tablet Take 1 tablet (10 mg total) by mouth every 6 (six) hours 30 tablet 07/26/2023 4 documented in this encounter Discharge Disposition Disposition Code Departure Means Destination Comment s Discharge to home or self care documented in this encounter Consult Notes * Kristy Headley MD - 07/26/2023 6:58 PM CST Vascular Surgery History and Physical - Consult Note Admission Date: 07/26/2023 Reason for Consultation: Physician requesting consult: Nigel Ramsey* has asked that we see Eriberto Chau for evaluation of back pain, history of TEVAR, TBE . HPI: Eriberto Chau is a 33 y.o. 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 Recently admitted earlier this month for left ureteral stone extraction and stent placement. Presenting to ED today with worsening of back pain in setting of lapse in home pain regimen. Patient reports nausea, vomiting, and persistent back pain two days ago after finishing prior oxycodone prescription. He denies changes in strength or sensation, chest pain, abdominal pain besides when retching. Had previously been taking oxycodone daily every morning with relief of his pain. On arrival to the ED he is clinically stable, hypertensive to 150s-160s with palpable pulse exam. CTA with stable appearing endovascular repair with mild aortic enlargement measuring 4 cm, Hgb 11.7 (8), respiratoryvirus swab negative. He has been compliant with his oral hypertensives, recently evaluated by his medical sonographer Dr. Abarca, establishing care with pain management clinic. Patient reports pain improved with dose of dilaudid in ED. Past Medical: Past Medical History: Diagnosis Date Hypertension Kidney stones Surgical History: Past Surgical History: Procedure Laterality Date ABDOMINAL AORTIC ANEURYSM REPAIR Home Medications: HOME MEDICATIONS : amLODIPine (NORVASC) 10 mg tablet aspirin 81 mg chewable tablet carvediloL (COREG) 12.5 mg tablet gabapentin (NEURONTIN) 300 mg capsule hydrALAZINE (APRESOLINE) 50 mg tablet ondansetron ODT (ZOFRAN-ODT) 4 mg disintegrating tablet oxyBUTYnin XL (DITROPAN-XL) 10 mg 24 hr tablet oxyCODONE (ROXICODONE) 5 mg immediate release tablet QUEtiapine (SEROquel) 50 mg tablet senna-docusate (PERICOLACE) 8.6-50 mg tamsulosin (FLOMAX) 0.4 mg extended release capsule Current Medications: Current Facility-Administered Medications Medication Dose Route Frequency Provider Last Rate Last Admin HYDROmorphone (DILAUDID) injection 0.5 mg 0.5 mg intravenous Q2H PRN Claudia Franklin MD0.5 mg at 07/26/23 1610 Current Outpatient Medications Medication Sig Dispense Refill amLODIPine (NORVASC) 10 mg tablet Take 1 tablet (10 mg total) by mouth daily 30 tablet 11 aspirin 81 mg chewable tablet Take 1 tablet (81 mg total) by mouth daily 30 tablet 11 carvediloL (COREG) 12.5 mg tablet Take 2 tablets (25 mg total) by mouth 2 (two) times a day with meals (Patient taking differently: Take 2 tablets (25 mg total) by mouth 2 (two) times a day with meals taking 37.5mg twice daily) 120 tablet 11 gabapentin (NEURONTIN) 300 mg capsule Take 1 capsule (300 mg total) by mouth 3 (three) times a day 90 capsule 1 hydrALAZINE (APRESOLINE) 50 mg tablet Take 1 tablet (50 mg total) by mouth 3 (three) times a day 90tablet 11 ondansetron ODT (ZOFRAN-ODT) 4 mg disintegrating tablet Take 1 tablet (4 mg total) by mouth every 8(eight) hours as needed for nausea or vomiting 10 tablet 0 oxyBUTYnin XL (DITROPAN-XL) 10 mg 24 hr tablet Take 1 tablet (10 mg total) by mouth daily for 14 days (Patient not taking: Reported on 07/20/2023) 14 tablet 0 oxyCODONE (ROXICODONE) 5 mg immediate release tablet Take 1 tablet (5 mg total) by mouth every 4 (four) hours as needed for pain (Patient not taking: Reported on 07/20/2023) 30 tablet 0 QUEtiapine (SEROquel) 50 mg tablet Take 1 tablet (50 mg total) by mouth nightly 30 tablet 0 senna-docusate (PERICOLACE) 8.6-50 mg Take 2 tablets by mouth 2 (two) times a day To prevent constipation 40 tablet 0 tamsulosin (FLOMAX) 0.4 mg extended release capsule Take 1 capsule (0.4 mg total) by mouth daily with dinner for 15 days 15 capsule 0 Allergies: Allergies Allergen Reactions Lisinopril Angioedema Amoxicillin Hives Family History: No family history on file. Social History: reports that he has never smoked. He has never used smokeless tobacco. He reports that he does not currently use drugs. Patient denies consuming alcoholic drinks. Review of Systems: Constitutional: Negative for fatigue, weight loss, fevers, anorexia. + chronic chills attributed toanemia Eyes: Negative for changes in vision or ocular discharge Ears, nose, mouth, and throat: Negative for ear pain, nasal drainage, sore throat Respiratory: Negative for shortness of breath, acute cough, asthma, wheezing Cardiovascular: Negative for chest pain, cyanosis Gastrointestinal: Negative for abdominal pain, constipation, diarrhea. + nausea, vomiting Genitourinary: Negative for dysuria, hematuria Skin: Negative for rash Hematologic/lymphatic: Negative for easy bruising Musculoskeletal:Negative for joint pain, muscle pain Neurological: Negative for headaches, seizures Vitals: Arrival Vitals [07/26/23 1443] Temp 36.6 ??C (97.9 ??F) Pulse 93 Resp 18 BP 143/98 SpO2 99 % Temp src Axillary Heart Rate Source Patient Position BP Location FiO2 (%) Most Recent : Vitals: 07/26/23 1730 BP: 164/79 Pulse: 93 Resp: 17 Temp: SpO2: 100% Objective Physical exam: GENERAL: No acute distress. NEURO: Alert and oriented x3, mood and affect appropriate. Symmetric strength in bilateral upper and lower extremities. HEENT: Pupils equal. EOMs grossly normal. NECK: Supple. Trachea midline. PULMONARY: Breathing comfortably on room air. No audible wheezes. CARDIOVASCULAR: Regular rate and rhythm. ABDOMEN: Soft, non-tender, non-distended MUSCULOSKELETAL: Grossly normal range of motion. PULSES: Right Radial -palpable Femoral -palpable DP - palpable PT- palpable Left Radial - palpable Femoral - palpable DP - palpable PT - palpable INCISION/WOUND: healed left groin incision Lab/Radiology/Diagnostic Review: Lab results in the last 24 hours: Recent Results (from the past 24 hour(s)) CBC with auto differential Collection Time: 07/26/23 3:10 PM Result Value Ref Range WBC 9.6 3.8 - 9.9 K/cumm Hgb 11.7 (L) 13.0 - 17.5 g/dL Hct 35.1 (L) 38.9 - 50.3 % Plt 444 (H) 150 - 400 K/cumm MPV 9.2 9.1 - 12.3 fL RBC 4.13 (L) 4.30 - 5.80 M/cumm MCV 85.0 81.3 - 96.4 fL MCH 28.3 27.1 - 33.3 pg MCHC 33.3 32.3 - 35.7 g/dL RDW CV 15.1 (H) 11.1 - 14.9 % RDW SD 46.9 35.7 - 48.1 fL NRBC abs 0.00 0.00 - 0.01 K/cumm Comprehensive metabolic panel Collection Time: 07/26/23 3:10 PM Result Value Ref Range Sodium 137 135 - 145 mmol/L Potassium, pl 3.7 3.3 - 4.9 mmol/L Chloride 101 97 - 110 mmol/L CO2 21 (L) 22 - 32 mmol/L Anion gap 15 2 - 15 mmol/L BUN 16 6 - 25 mg/dL Creatinine 1.21 0.80 - 1.30 mg/dL Glucose 130 70 - 199 mg/dL Calcium 10.8 (H) 8.5 - 10.3 mg/dL Bilirubin, total 0.7 0.1 - 1.2 mg/dL Protein, pl 10.4 (H) 6.5 - 8.5 g/dL Albumin 4.9 3.5 - 5.0 g/dL Alk phos 128 40 - 130 Units/L ALT 23 7 - 55 Units/L AST 21 10 - 50 Units/L Lipase Collection Time: 07/26/23 3:10 PM Result Value Ref Range Lipase 14 10 - 99 Units/L Troponin I high-sensitivity series (baseline, 2hr, 4hr, 6hr) Collection Time: 07/26/23 3:10 PM Result Value Ref Range Trop I hs <4 <=35 ng/L Differential, auto Collection Time: 07/26/23 3:10 PM Result Value Ref Range Neutrophil abs 8.0 (H) 1.5 - 6.5 K/cumm Imm gran abs 0.1 0.0 - 0.1 K/cumm Lymphocyte abs 1.0 0.8 - 3.3 K/cumm Monocyte abs 0.5 0.2 - 0.8 K/cumm Eosinophil abs 0.0 0.0 - 0.5 K/cumm Basophil abs 0.0 0.0 - 0.1 K/cumm Neutrophil pct 83.4 % Imm gran pct 0.7 % Lymphocyte pct 10.5 % Monocyte pct 4.9 % Eosinophil pct 0.1 % Basophil pct 0.4 % eGFR Collection Time: 07/26/23 3:10 PM Result Value Ref Range eGFR 82 >=60 mL/min/1.73 m2 Influenza A/B, RSV, and COVID-19 PCR Nasopharyngeal Collection Time: 07/26/23 3:10 PM Specimen: Nasopharyngeal Result Value Ref Range COVID-19 RNA Negative Negative Influenza A RNA Negative Negative Influenza B RNA Negative Negative RSV RNA Negative Negative Troponin I high-sensitivity 2-hour Collection Time: 07/26/23 5:16 PM Result Value Ref Range Trop I hs <4 <=35 ng/L Trop I hs delta 0 ng/L Trop I hs interp Insignificant , Chemistry CMP: Lab Results Component Value Date ALBUMIN 4.9 07/26/2023 BUNSER 16 07/26/2023 CALCIUM 10.8 (H) 07/26/2023 CO2 21 (L) 07/26/2023 CHLORIDE 101 07/26/2023 CREATININE 1.21 07/26/2023 GLUCOSE 130 07/26/2023 POTASSIUM 3.7 07/26/2023 SODIUM 137 07/26/2023 BILITOT 0.7 07/26/2023 PROT 10.4 (H) 07/26/2023 ALT 23 07/26/2023 AST 21 07/26/2023 ALKPHOS 128 07/26/2023 , CBC: Lab Results Component Value Date WBC 9.6 07/26/2023 RBC 4.13 (L) 07/26/2023 HGB 11.7 (L) 07/26/2023 HCT 35.1 (L) 07/26/2023 MCV 85.0 07/26/2023 MCH 28.3 07/26/2023 MCHC 33.3 07/26/2023 RDWCV 15.1 (H) 07/26/2023 RDWSD 46.9 07/26/2023 MPV 9.2 07/26/2023 NRBCABS 0.00 07/26/2023 , Coags: No results found for: PT , PTT , APTT , FFN , FIBRINOGEN , INR , ACTIVATEDCL , Lipids: No results found for: CHOL , CHLPL , HDL , LDLCALC , TRIG , CHOLHDL , Cardiac Enzymes: No results found for: CKTOTAL , CKMB , CKMBINDEX , TROPONINT and POC Glucose: Lab Results Component Value Date GLUCOSE 130 07/26/2023 CTA Chest Abdomen Pelvis Narrative: EXAMINATION: CT ANGIOGRAPHY OF THE CHEST, ABDOMEN AND PELVIS WITH AND WITHOUT CONTRAST HISTORY: Aortic dissection status post endovascular repair TECHNIQUE: CT angiography of the chest, abdomen and pelvis was performed prior to and following the uneventful intravenous administration of 95 ml [id number] using the post-endoluminal stent graft protocol. Vascular 3D images were generated on a dedicated workstation and also reviewed. COMPARISON: 07/06/2023 CT abdomen and pelvis FINDINGS: VASCULAR FINDINGS: Again seen are postsurgical changes of endovascular stent graft with the proximal attachment site in the aortic arch at the level of the left common carotid artery with stented patent left subclavian artery. The stent extends to the infrarenal abdominal aorta where there is an unchanged dissection flap visible at the inferior aspect of the stent and extending into the left common iliac artery, unchanged. There is filling of the false lumen at the level of the diaphragmatic hiatus and extending to the level of the left renal artery origin. Apparent fenestration within the distal aspect of the dissection flap in the left common iliac artery is again seen. Persistent aneurysmal dilatation measuring up to 4.0 x 3.9 cm at the level of the diaphragmatic hiatus (including the stented aorta), minimally increased when measured in a similar fashion, although this has more significantly increased when compared to more remote exams. The maximum diameter of the descending thoracic aorta in the stented portion measures up to 5 cm and is similar to 07/06/2023. The right renal artery arises from the true lumen. The superior mesenteric artery and celiac artery arise from the false lumen. The left renal artery origin is difficult to assess but is patent. The inferior mesenteric artery arises from the true lumen. Again seen is focal outpouching of the left common femoral artery measuring up to 7 mm which is unchanged in configuration compared to 07/06/2023 (series 4, image 616). NON-VASCULAR FINDINGS: Sequela of old granulomatous disease with left lower lobe calcified granuloma and calcified left hilar lymph nodes. No focal pneumonic consolidation. No pleural effusion or pneumothorax. Unchanged left apical bleb. No suspicious pulmonary nodule. Heart size is normal without pericardial effusion. Visualized thyroid gland is unremarkable. No thoracic lymphadenopathy. Arterially hyperenhancing lesion within hepatic segment 4A/8 is unchanged, likely hemangioma. The gallbladder, pancreas, spleen and bilateral adrenal glands are unremarkable. No biliary ductal dilatation. Kidneys enhance symmetrically. Multiple nonobstructing renal stones. No hydronephrosis. Previously seen left nephroureteral stent is been removed. Subcentimeter hypoattenuating right lower pole renal lesion is too small to characterize. Urinary bladder is incompletely distended. Prostate gland is present. Colonic diverticulosis without evidence of diverticulitis. No bowel obstruction. The appendix is normal. No ascites or pneumoperitoneum. No lymphadenopathy in abdomen or pelvis. No suspicious osseous lesions. Impression: 1. Redemonstrated thoracoabdominal aortic dissection managed with endovascular aortic repair with minimal increase in size of aneurysmal dilatation at the diaphragmatic hiatus which may be related to persistent filling of the false lumen. Otherwise, no acute findings to explain the patient's abdominal pain. 2. Unchanged focal outpouching along the left common femoral artery favored to represent a small left common femoral pseudoaneurysm, less likely opacification within a vascular access device. Dictated by: Dayami Banks M.D. The radiology attending physician has personally reviewed this study, and had reviewed and/or edited this written report and agrees with it. Electronically signed by: Roldan Harrison M.D. ECG 12 lead Shannon Herzog MD 07/26/2023 3:05 PM ECG 12 lead Date/Time: 07/26/2023 3:02 PM Performed by: Shannon Herzog MD Authorized by: Guille Navarro MD Rate: ECG rate: 87 ECG rate assessment: normal Rhythm: Rhythm: sinus rhythm QRS: QRS intervals: Normal Conduction: Conduction: normal ST segments: ST segments: Abnormal Elevation: AVR Depression: II, V5 and V6 T waves: T waves: non-specific Other findings: Other findings: prolonged qTc interval Previous ECG: Previous ECG: Compared to current Date of previous EC07/04/2023 Comparison ECG info: CRISSY AVR new, previous STD II more pronounced, STD V5-6 Old Similarity: Changes noted Interpretation: Interpretation: abnormal Active Problems: No Active Problems: There are no active problems currently on the Problem List. Please update the Problem List and refresh. Assessment and Plan: Patient Active Problem List Diagnosis Dissection of aorta, unspecified portion of aorta (HCC) Dissection of thoracoabdominal aorta (CMS/HCC) (HCC) Epistaxis Pneumonia HTN (hypertension) Urinary retention Dissection of abdominal aorta (CMS/HCC) (HCC) Moderate malnutrition (CMS/HCC) (HCC) Polysubstance abuse (CMS/HCC) (HCC) Infrarenal abdominal aortic aneurysm, without rupture (HCC) Chronic back pain Pseudoaneurysm following procedure (CMS/HCC) (HCC) Ureteral stone Left flank pain PFO (patent foramen ovale) Eriberto Chau is a 33 y.o. man with history of hypertension, chronic pain, type B aortic dissection s/p TBE 04/2023 and TEVAR 06/05/2023 presenting with chronic back pain and emesis exacerbated in setting of lapse in home pain regimen. Imaging largely stable and does not explain his back pain or emesis. Pain improved with analgesics in ED Plan: -no acute vascular surgery intervention -recommend trial of PO pain regimen, ie oxycodone and management of hypertension -if discharged, plan for follow up as scheduled 3/6 with interval imaging The care plan above has been or will be discussed with attending physician. Any changes will be communicated to the primary team. Please contact the Vascular Surgery Consult Service at the number listed below with any questions or concerns regarding the surgical management of this patient. Kristy Headley MD Resident Physician Vascular Surgery Vascular Consult Cosigned by Kaylie Cook MD at 07/27/2023 3:18 PM NETWORK OPERATIONS TECHNICIAN ORK OPERATIONS TECHNICIAN ORK OPERATIONS TECHNICIAN documented in this encounter ED Notes * Claudia Monk MD - 07/26/2023 4:13 PM CST HPI Chief Complaint Patient presents with Abdominal Pain Vomiting 33-year-old male with history of aortic dissection status post endovascular repair twice, nephrolithiasis status post stenting, hypertension who presents with 2 days of lower abdominal pain, indescribable that worsened at 0700 this morning. The pain is 10/10 and radiates to his low back. He is experienced uncomfortable episodes of nonbloody, nonbilious emesis. Reports found episode of nonbloody watery diarrhea. Denies fevers. Also endorsing rhinorrhea, productive cough, diffuse chest pain and shortness of breath associated with the vomiting and coughing. Mom is sick with flu at home. Uses marijuana daily, none today. No hx of hyperemesis Patient History: Patient Active Problem List Diagnosis Date Noted PFO (patent foramen ovale) 07/05/2023 Ureteral stone 07/04/2023 Left flank pain 07/04/2023 Chronic back pain 06/24/2023 Pseudoaneurysm following procedure (CMS/HCC) (HCC) 06/24/2023 Infrarenal abdominal aortic aneurysm, without rupture ([facility]) 06/13/2023 Polysubstance abuse (CMS/HCC) ([facility]) 06/10/2023 Moderate malnutrition (CMS/HCC) ([facility]) 06/09/2023 Dissection of abdominal aorta (CMS/HCC) ([facility]) 06/03/2023 Urinary retention 05/16/2023 Epistaxis 05/13/2023 Pneumonia 05/13/2023 HTN (hypertension) 05/13/2023 Dissection of thoracoabdominal aorta (CMS/HCC) ([facility]) 05/02/2023 Dissection of aorta, unspecified portion of aorta ([facility]) 05/01/2023 Past Medical History: Diagnosis Date Hypertension Kidney stones Past Surgical History: Procedure Laterality Date ABDOMINAL AORTIC ANEURYSM REPAIR No family history on file. Social History Tobacco Use Smoking status: Never Smokeless tobacco: Never Substance and Sexual Activity Alcohol use: Not Currently Drug use: Not Currently Sexual activity: Not on file Social History Social History Narrative Not on file Review of Systems Review of Systems All other systems reviewed and are negative. Physical Exam ED Triage Vitals [07/26/23 1443] Temp Pulse Resp BP SpO2 36.6 ??C (97.9 ??F) 93 18 143/98 99 % Temp src Heart Rate Source Patient Position BP Location FiO2 (%) Axillary -- -- -- -- Height Height Method Weight Weight Method 1.753 m (5' 9 ) Stated 97.5 kg (215 lb) Stated Physical Exam Vitals and nursing note reviewed. Constitutional: General: He is in acute distress. Appearance: He is well-developed. He is ill-appearing. Comments: Actively vomiting HENT: Head: Normocephalic and atraumatic. Nose: Rhinorrhea present. Mouth/Throat: Mouth: Mucous membranes are moist. Pharynx: No pharyngeal swelling or oropharyngeal exudate. Eyes: Extraocular Movements: Extraocular movements intact. Conjunctiva/sclera: Conjunctivae normal. Pupils: Pupils are equal, round, and reactive to light. Cardiovascular: Rate and Rhythm: Regular rhythm. Tachycardia present. Heart sounds: No murmur heard. Pulmonary: Effort: Pulmonary effort is normal. No respiratory distress. Breath sounds: Normal breath sounds. Abdominal: Palpations: Abdomen is soft. Tenderness: There is abdominal tenderness. There is right CVA tenderness and left CVA tenderness. There is no rebound. Comments: Right lower quadrant and suprapubic abdominal pain Musculoskeletal: General: No swelling. Cervical back: Neck supple. Right lower leg: No edema. Left lower leg: No edema. Skin: General: Skin is warm and dry. Capillary Refill: Capillary refill takes less than 2 seconds. Coloration: Skin is pale. Skin is not jaundiced. Neurological: General: No focal deficit present. Mental Status: He is alert and oriented to person, place, and time. Psychiatric: Mood and Affect: Mood normal. [facility] Medical Decision Making 33-year-old male with history of aortic dissection status post endovascular repair twice, nephrolithiasis status post stenting, hypertension who presents with 2 days of lower abdominal pain with associated N/V/D. Vital signs with hypertension and tachycardia. Acutely appears unwell with active dry heaving and vomiting. Abdomen is nondistended though is tender in right lower quadrant with bilateral CVA tenderness. On chart review, he has recent endovascular maneuvering of his aorta approximately1 month ago. Was concerning differential is an acute aortic abnormality such as dissection, possible kidney stone, pyelonephritis, viral gastroenteritis, appendicitis, viral infection such as pneumonia, flu, RSV, influenza, consider hyperemesis. He is quite young to have mesenteric ischemia. Less likely cholelithiasis or pancreatitis. Low concern for small bowel obstruction. We will obtain CTA ofthe chest abdomen and pelvis as well as basic labs. With his tachycardia, he had an EKG in triage with revealing see sudden elevation AVR. Troponins are pending. His symptomatology does not fit ACS though will repeat an EKG and reassess after reviewing troponins. His symptoms of chest pain, shortness of breath may be a viral pneumonia, viral infection, possible esophageal perforation, low concernfor PE. Will further evaluate with CT scan. We will provide analgesics and antiemetics as needed. Di sposition is pending workup. Amount and/or Complexity of Data Reviewed Labs: ordered. Decision-making details documented in ED Course. Radiology: ordered. ECG/medicine tests: ordered and independent interpretation performed. Risk OTC drugs. Prescription drug management. Attending Summary of Care ED Course as of 07/27/23 0017 Time: 07/26 1605 Value: Creatinine: 1.21 Comment: Baseline 0.8-1 By: Claudia Monk MD Time: 07/26 160 Value: WBC: 9.6 Comment: (Reviewed) By: Claudia Monk MD Time: 07/26 1605 Value: Hgb(!): 11.7 Comment: Hgb baseline 8-9, possible hemoconcentration component By: Claudia Monk MD Time: 07/26 1634 Comment: Attending attestation: Patient is a 33-year-old male with significant history of recent aortic dissection status post repair, polysubstance use, chronic pain disorder with arranged outpatient follow-up, nephrolithiasis presenting for evaluation of abdominal pain. He is accompanied by his significant other. They report yes terday patient is having mild pain in his abdomen and bilateral flanks; however, this morning he woke up with significantly worsening right flank pain that radiates across his back. He has not had any urinary symptoms. No fevers. He has had persistent nausea, emesis, crampy abdominal pain over the past several hours. No recent traumas to his abdomen. His mother has been ill with influenza, he hasnot received his flu vaccination. No significant diarrhea reported. Has been compliant with his home pain medication regimen but is currently out of his opioid medications. Has had recent ureteral stenting without complications. Physical exam shows young male in acute distress, lying on his left side, clutching abdomen, tearful. He is bilateral CVA tenderness, cardiac auscultation with regular rate and rhythm, no appreciable murmurs, rubs, gallops, bilateral breath sounds clear and full, abdomen diffusely tender, no peripheral edema. No rashes. Differential diagnosis includes aortic dissection, nephrolithiasis, pyelonephritis, pancreatitis, gastritis, diverticulitis, appendicitis. On review of initial labs, troponin is negative, CMP without significant abnormalities, lipase normal. Will obtain imaging of aorta given recent history, influenza testing, urinalysis. Will provide further pain control and fluids for rehydration. Disposition pending further evaluation. By: Nigel Ramsey MD Time: 07/26 8085 Value: Influenza A/B, RSV, and COVID-19 PCR Nasopharyngeal: COVID-19 RNA Negative Influenza A RNA Negative Influenza B RNA Negative RSV RNA Negative Comment: (Reviewed) By: Claudia Monk MD Time: 07/26 9906 Comment: CTA Final: 1. Redemonstrated thoracoabdominal aortic dissection managed with endovascular aortic repair with minimal increase in size of aneurysmal dilatation at the diaphragmatic hiatus which may be related to persistent filling of the false lumen. Otherwise, no acute findings to explain the patient's abdominal pain. 2. Unchanged focal outpouching along the left common femoral artery favored to represent a small left common femoral pseudoaneurysm, less likely opacification within a vascular access device By: Claudia Monk MD Time: 07/26 1841 Comment: Discussed with vascular who is seeing the patient now By: Claudia Monk MD Time: 07/26 1934 Comment: Vascular surgery has evaluated patient reviewed imaging, does not feel aortic pathology isconsistent with patient's current pain. Does recommend trial of p.o. oxycodone at home regimen dosefor further control of pain and blood pressure control. They will continue to evaluate patient in the outpatient setting and repeat scans in the future for assessment of increasing dilation. By: Nigel Ramsey MD Time: 07/26 2129 Comment: Updated patient on findings thus far. He reports his pain is typically improved with hot showers and hot blankets. I explained this raises my suspicion for hyperemesis syndrome and recommended droperidol as well as capsaicin cream. Also discussed smoking cessation of marijuana. Patient hastolerated water here so we will plan for discharge with Reglan and capsaicin cream prescriptions. He also reports he has been out of his oxycodone prescription at home in his not to see pain management until the end of August. This likely has contributed to his acute patent today By: Claudia Monk MD Abdominal pain Nausea and vomiting, unspecified vomiting type Claudia Monk MD Resident 07/27/23 0017 Cosigned by Nigel Ramsey MD at 07/29/2023 10:00 AM NETWORK OPERATIONS TECHNICIAN ORK OPERATIONS TECHNICIAN ORK OPERATIONS TECHNICIAN Associated attestation - Nigel Ramsey MD - 07/29/2023 10:00 AM NETWORK OPERATIONS TECHNICIAN I have seen and examined the patient on 07/26/2023. I agree with the findings and plan of care as documented in the resident's note. * Jennifer Perez RN - 07/26/2023 3:46 PM CST Bed: [id number] Expected date: Expected time: Means of arrival: Car Comments: Jennifer Perez RN 07/26/23 1546 ORK OPERATIONS TECHNICIAN * Allison Kay RN - 07/26/2023 2:43 PM CST Pt presents to the ED with c /o vomiting, high blood pressure and abdominal pain. Symptoms started around 0700 this am. Pt states pain is all over his abdomen. Has hx of stents placed for aortic dissection in April 2023 and May 2023. Hasn't been able to keep anything down, including BP meds.States that his mom was recently diagnosed with the flu and has been in contact with her. AxO4. ORK OPERATIONS TECHNICIAN ORK OPERATIONS TECHNICIAN documented in this encounter Miscellaneous Notes * ED Procedure Note - Shannon Herzog MD - 07/26/2023 3:02 PM CSTAssociated Order(s): ECG 12 lead Procedure ECG 12 lead Date/Time: 07/26/2023 3:02 PM Performed by: Shannon Herzog MD Authorized by: Guille Navarro MD Rate: ECG rate: 87 ECG rate assessment: normal Rhythm: Rhythm: sinus rhythm QRS: QRS intervals: Normal Conduction: Conduction: normal ST segments: ST segments: Abnormal Elevation: AVR Depression: II, V5 and V6 T waves: T waves: non-specific Other findings: Other findings: prolonged qTc interval Previous ECG: Previous ECG: Compared to current Date of previous EC07/04/2023 Comparison ECG info: CRISSY AVR new, previous STD II more pronounced, STD V5-6 Old Similarity: Changes noted Interpretation: Interpretation: abnormal Shannon Herzog MD 07/26/23 1505 ORK OPERATIONS TECHNICIAN documented in this encounter Plan of Treatment Not on file documented as of this encounter Procedures Procedure Name Priority Date/Time Associated Diagnosis Comments TROPONIN I HIGH-SENSITIVITY 2-HOUR Timed 07/26/2023 5:16 PM NETWORK OPERATIONS TECHNICIAN CTA CHEST ABDOMEN PELVIS ED 07/26/2023 5:03 PM NETWORK OPERATIONS TECHNICIAN INFLUENZA A/B, RSV, AND COVID-19 PCR Routine 07/26/2023 3:10 PM NETWORK OPERATIONS TECHNICIAN TROPONIN I HIGH-SENSITIVITY SERIES (BASELINE, 2HR, 4HR, 6HR) STAT 07/26/2023 3:10 PM NETWORK OPERATIONS TECHNICIAN EGFR STAT 07/26/2023 3:10 PM NETWORK OPERATIONS TECHNICIAN DIFFERENTIAL AUTO STAT 07/26/2023 3:1 0 PM NETWORK OPERATIONS TECHNICIAN CBC WITH AUTO DIFFERENTIAL STAT 07/26/2023 3:10 PM NETWORK OPERATIONS TECHNICIAN LIPASE STAT 07/26/2023 3:10 PM NETWORK OPERATIONS TECHNICIAN COMPREHENSIVE METABOLIC PANEL STAT 07/26/2023 3:10 PM NETWORK OPERATIONS TECHNICIAN ECG 12-LEAD STAT 07/26/2023 3:02 PM NETWORK OPERATIONS TECHNICIAN documented in this encounter Results * Troponin I high-sensitivity 2-hour (07/26/2023 5:16 PM NETWORK OPERATIONS TECHNICIAN) Trop I hs <4 <=35 ng/L JAIRON ERWIN Comment: Interpretive Data For further hscTnI resources including the diagnostic algorithm and an aid in interpretation, copy and paste this link: [email or web address]/[email or web address] Current Interpretive Data last revised 2019. Trop I hs delta 0 ng/L [facility] Trop I hs interp Insignificant [facility] H Blood 07/26/2023 5:16 PM NETWORK OPERATIONS TECHNICIAN 07/26/2023 5:33 PM NETWORK OPERATIONS TECHNICIAN [facility] Taco Navarro MD LAB BLOOD ORDERABLES [facility] al Result [facility] [place] [address] * CTA Chest Abdomen Pelvis (07/26/2023 5:03 PM NETWORK OPERATIONS TECHNICIAN) Anatomical Region Laterality Modality Body N/A Computed Tomogra phy 07/26/2023 5:42 PM NETWORK OPERATIONS TECHNICIAN Impressions 07/26/2023 5:50 PM NETWORK OPERATIONS TECHNICIAN 1. ??Redemonstrated thoracoabdominal aortic dissection managed with endovascular aortic repair with minimal increase in size of aneurysmal dilatation at the diaphragmatic hiatus which may be related to persistent filling of the false lumen. ??Otherwise, no acute findings to explain the patient's abdominal pain. 2. ??Unchanged focal outpouching along the left common femoral artery favored to represent a small left common femoral pseudoaneurysm, less likely opacification within a vascular access device. Dictated by: Dayami Banks M.D. The radiology attending physician has personally reviewed this study, and had reviewed and/or edited this written report and agrees with it. Electronically signed by: Roldan Harrison M.D. Narrative 07/26/2023 5:50 PM NETWORK OPERATIONS TECHNICIAN EXAMINATION: ??CT ANGIOGRAPHY OF THE CHEST, ABDOMEN AND PELVIS WITH AND WITHOUT CONTRAST HISTORY: Aortic dissection status post endovascular repair TECHNIQUE: CT angiography of the chest, abdomen and pelvis was performed prior to and following the uneventful intravenous administration of 95 ml Optiray-350 using the post-endoluminal stent graft protocol. Vascular 3D images were generated on a dedicated workstation and also reviewed. COMPARISON: 07/06/2023 CT abdomen and pelvis FINDINGS: VASCULAR FINDINGS: Again seen are postsurgical changes of endovascular stent graft with the proximal attachment site in the aortic arch at the level of the left common carotid artery with stented patent left subclavian artery. ??The stent extends to the infrarenal abdominal aorta where there is an unchanged dissection flap visible at the inferior aspect of the stent and extending into the left common iliac artery, unchanged. ??There is filling of the false lumen at the level of the diaphragmatic hiatus and extending to the level of the left renal artery origin. ??Apparent fenestration within the distal aspect of the dissection flap in the left common iliac artery is again seen. Persistent aneurysmal dilatation measuring up to 4.0 x 3.9 cm at the level of the diaphragmatic hiatus (including the stented aorta), minimally increased when measured in a similar fashion, although this has more significantly increased when compared to more remote exams. The maximum diameter of the descending thoracic aorta in the stented portion measures up to 5 cm and is similar to 07/06/2023. The right renal artery arises from the true lumen. ??The superior mesenteric artery and celiac artery arise from the false lumen. ??The left renal artery origin is difficult to assess but is patent. ??The inferior mesenteric artery arises from the true lumen. Again seen is focal outpouching of the left common femoral artery measuring up to 7 mm which is unchanged in configuration compared to 07/06/2023 (series 4, image 616). NON-VASCULAR FINDINGS: Sequela of old granulomatous disease with left lower lobe calcified granuloma and calcified left hilar lymph nodes. ??No focal pneumonic consolidation. ??No pleural effusion or pneumothorax. ??Unchanged left apical bleb. ??No suspicious pulmonary nodule. Heart size is normal without pericardial effusion. ??Visualized thyroid gland is unremarkable. ??No thoracic lymphadenopathy. Arterially hyperenhancing lesion within hepatic segment 4A/8 is unchanged, likely hemangioma. ??The gallbladder, pancreas, spleen and bilateral adrenal glands are unremarkable. ??No biliary ductal dilatation. ??Kidneys enhance symmetrically. ??Multiple nonobstructing renal stones. ??No hydronephrosis. ??Previously seen left nephroureteral stent is been removed. ??Subcentimeter hypoattenuating right lower pole renal lesion is too small to characterize. ??Urinary bladder is incompletely distended. ??Prostate gland is present. Colonic diverticulosis without evidence of diverticulitis. ??No bowel obstruction. ??The appendix is normal. ??No ascites or pneumoperitoneum. ??No lymphadenopathy in abdomen or pelvis. No suspicious osseous lesions. Procedure Note Roldna Harrison MD - 07/26/2023 EXAMINATION: CT ANGIOGRAPHY OF THE CHEST, ABDOMEN AND PELVIS WITH AND WITHOUT CONTRAST HISTORY: Aortic dissection status post endovascular repair TECHNIQUE: CT angiography of the chest, abdomen and pelvis was performed prior to and following the uneventful intravenous administration of 95 ml Optiray-350 using the post-endoluminal stent graft protocol. Vascular 3D images were generated on a dedicated workstation and also reviewed. COMPARISON: 07/06/2023 CT abdomen and pelvis FINDINGS: VASCULAR FINDINGS: Again seen are postsurgical changes of endovascular stent graft with the proximal attachment site in the aortic arch at the level of the left common carotid artery with stented patent left subclavian artery. The stent extends to the infrarenal abdominal aorta where there is an unchanged dissection flap visible at the inferior aspect of the stent and extending into the left common iliac artery, unchanged. There is filling of the false lumen at the level of the diaphragmatic hiatus and extending to the level of the left renal artery origin. Apparent fenestration within the distal aspect of the dissection flap in the left common iliac artery is again seen. Persistent aneurysmal dilatation measuring up to 4.0 x 3.9 cm at the level of the diaphragmatic hiatus (including the stented aorta), minimally increased when measured in a similar fashion, although this has more significantly increased when compared to more remote exams. The maximum diameter of the descending thoracic aorta in the stented portion measures up to 5 cm and is similar to 07/06/2023. The right renal artery arises from the true lumen. The superior mesenteric artery and celiac artery arise from the false lumen. The left renal artery origin is difficult to assess but is patent. The inferior mesenteric artery arises from the true lumen. Again seen is focal outpouching of the left common femoral artery measuring up to 7 mm which is unchanged in configuration compared to 07/06/2023 (series 4, image 616). NON-VASCULAR FINDINGS: Sequela of old granulomatous disease with left lower lobe calcified granuloma and calcified left hilar lymph nodes. No focal pneumonic consolidation. No pleural effusion or pneumothorax. Unchanged left apical bleb. No suspicious pulmonary nodule. Heart size is normal without pericardial effusion. Visualized thyroid gland is unremarkable. No thoracic lymphadenopathy. Arterially hyperenhancing lesion within hepatic segment 4A/8 is unchanged, likely hemangioma. The gallbladder, pancreas, spleen and bilateral adrenal glands are unremarkable. No biliary ductal dilatation. Kidneys enhance symmetrically. Multiple nonobstructing renal stones. No hydronephrosis. Previously seen left nephroureteral stent is been removed. Subcentimeter hypoattenuating right lower pole renal lesion is too small to characterize. Urinary bladder is incompletely distended. Prostate gland is present. Colonic diverticulosis without evidence of diverticulitis. No bowel obstruction. The appendix is normal. No ascites or pneumoperitoneum. No lymphadenopathy in abdomen or pelvis. No suspicious osseous lesions. IMPRESSION: 1. Redemonstrated thoracoabdominal aortic dissection managed with endovascular aortic repair with minimal increase in size of aneurysmal dilatation at the diaphragmatic hiatus which may be related to persistent filling of the false lumen. Otherwise, no acute findings to explain the patient's abdominal pain. 2. Unchanged focal outpouching along the left common femoral artery favored to represent a small left common femoral pseudoaneurysm, less likely opacification within a vascular access device. Dictated by: Dayami Banks M.D. The radiology attending physician has personally reviewed this study, and had reviewed and/or edited this written report and agrees with it. Electronically signed by: Roldan Harrison M.D. Claudia Hannah Monk MD IM CT PROCEDURES F inal Result * Influenza A/B, RSV, and COVID-19 PCR Nasopharyngeal (07/26/2023 3:10 PM NETWORK OPERATIONS TECHNICIAN) COVID-19 RNA Negative Negative [facility] Influenza A RNA Negative Negative [facility] Influenza B RNA Negative Negative [facility] RSV RNA Negative Negative [facility] Comment: Interpretive data: Testing performed by [facility] ([phone]). This test is performed using the rankurert Xpress CoV-2/Flu/RSV plus assay. This is a multiplex, real-time reverse transcriptase PCR assay intended for the qualitative detection of nucleic acid from SARS-CoV-2, influenza A, influenza B, and respiratory syncytial virus. This assay has been cleared by the [place] Food and Drug administration. The performance characteristics have been verified by the [facility]. ??Results must be considered in the clinical context, and a negative result does not rule out infection. Interpretive Data last revised 2023 Nasopharyngeal 07/26/2023 3: 10 PM NETWORK OPERATIONS TECHNICIAN 07/26/2023 4:17 PM NETWORK OPERATIONS TECHNICIAN us Nigel Ramsey MD LAB MICROBIOLOGY - NERAL ORDERABLES Final Result [facility] [place] [address] * eGFR (07/26/2023 3:10 PM NETWORK OPERATIONS TECHNICIAN) eGFR 82 >=60 mL/min/1. 73 m2 JAIRON ERWIN Comment: Interpretive Data Reference Interval Normal ?>/= [...] interpretive data was last reviewed 2021. Blood 07/26/2023 3:10 PM NETWORK OPERATIONS TECHNICIAN 07/26/2023 3:28 PM NETWORK OPERATIONS TECHNICIAN Guille Navarro MD LAB BLOOD ORDERABLES Fin al Result [facility] [place] [address] * (ABNORMAL) Differential, auto (07/26/2023 3:10 PM NETWORK OPERATIONS TECHNICIAN) Neutrophil abs 8.0(H) 1.5 - 6.5 K/cumm [facility] Imm gran abs 0.1 0.0 - 0.1 K/cumm [facility] Lymphocyte abs 1.0 0.8 - 3.3 [facility] Monocyte abs 0.5 0.2 - 0.8 K/cumm [facility] Eosinophil abs 0.0 0.0 - 0.5 K/[facility]umm [facility] Basophil abs 0.0 0.0 - 0.1 K/cumm [facility] Neutrophil pct 83.4 % [facility] Comment: Interpretive Data Percent cell count reference ranges are not reported, since discordance with absolute values may lead to misinterpretation of CBC data. Current Interpretive Data was last revised on 2017. Imm gran pct 0.7 % [facility] Comment: Interpretive Data Percent cell count reference ranges are not reported, since discordance with absolute values may lead to misinterpretation of CBC data. Current Interpretive Data was last revised on 2017. Lymphocyte pct 10.5 % [facility] [place] Comment: Interpretive Data Percent cell count reference ranges are not reported, since discordance with absolute values may lead to misinterpretation of CBC data. Current Interpretive Data was last revised on 2017. Monocyte pct 4.9 % [facility] Comment: Interpretive Data Percent cell count reference ranges are not reported, since discordance with absolute values may lead to misinterpretation of CBC data. Current Interpretive Data was last revised on 2017. Eosinophil pct 0.1 % [facility] Comment: Interpretive Data Percent cell count reference ranges are not reported, since discordance with absolute values may lead to misinterpretation of CBC data. Current Interpretive Data was last revised on 2017. Basophil pct 0.4 % [facility] Comment: Interpretive Data Percent cell count reference ranges are not reported, since discordance with absolute values may lead to misinterpretation of CBC data. Current Interpretive Data was last revised on 2017. Blood 07/26/2023 3:10 PM NETWORK OPERATIONS TECHNICIAN 07/26/2023 3:27 PM NETWORK OPERATIONS TECHNICIAN Nigel Ramsey MD LAB BLOOD ORDERABLES Final Result Performing Organization Address [facility] Co de Phone Number [facility] [place] [employer] [place] [address] * Troponin I high-sensitivity series (baseline, 2hr, 4hr, 6hr) (07/26/2023 3:10 PM NETWORK OPERATIONS TECHNICIAN) Trop I hs <4 <=35 ng/L [facility] Comment: Interpretive Data For further hscTnI resources including the diagnostic algorithm and an aid in interpretation, copy and paste this link: [email or web address] Current Interpretive Data last revised 2019. Blood 07/26/2023 3:10 PM NETWORK OPERATIONS TECHNICIAN 07/26/2023 3:27 PM NETWORK OPERATIONS TECHNICIAN Nigel Ramsey MD LAB BLOOD ORDERABLES Final Result Performing Organization Address [facility] Co de Phone Number [facility] [place] [employer] [place] [address] * Lipase (07/26/2023 3:10 PM NETWORK OPERATIONS TECHNICIAN) Lipase 14 10 - 99 Units/L [facility] Blood (Blood, Venous) 07/26/2023 3:10 PM NETWORK OPERATIONS TECHNICIAN 07/26/2023 3:28 PM NETWORK OPERATIONS TECHNICIAN us Nigel Ramsey MD LAB BLOOD ORDERABLES Final Result [facility] [place] [address] * (ABNORMAL) Comprehensive metabolic panel (07/26/2023 3:10 PM NETWORK OPERATIONS TECHNICIAN) Sodium 137 135 - 145 mmol/L [facility] [place] Potassium, pl 3.7 3.3 - 4.9 mmol/L [facility] Chloride 101 97 - 110 mmol/L [facility] CO2 21(L) 22 - 32 mmol/L [facility] Anion gap 15 2 - 15 mmol/L [facility] BUN 16 6 - 25 mg/dL [facility] Creatinine 1.21 0.80 - 1.30 mg/dL [facility] Glucose 130 70 - 199 mg/dL [facility] Comment: Interpretive Data Fasting glucose >/= 126 [...] interpretive data was last revised 2022. Calcium 10.8(H) 8.5 - 10.3 mg/dL [facility] Bilirubin, total 0.7 0.1 - 1.2 mg/dL [facility] Protein, pl 10.4(H) 6.5 - 8.5 g/dL [facility] Albumin 4.9 3.5 - 5.0 g/dL [facility] Alk phos 128 40 - 130 Units/L [facility] ALT 23 7 - 55 Units/L [facility] AST 21 10 - 50 Units/L [facility] Blood 07/26/2023 3:10 PM NETWORK OPERATIONS TECHNICIAN 07/26/2023 3:28 PM NETWORK OPERATIONS TECHNICIAN Nigel Ramsey MD LAB BLOOD ORDERABLES Final Result Performing Organization Address [facility] de Phone Number [facility] [place] [address] * (ABNORMAL) CBC with auto differential (07/26/2023 3:10 PM NETWORK OPERATIONS TECHNICIAN) [facility] WBC 9.6 3.8 - 9.9 K/cumm [facility] Hgb 11.7(L) 13.0 - 17.5 g/dL [facility] Hct 35.1(L) 38.9 - 50.3 % [facility] Plt 444(H) 150 - 400 K/cumm [facility] MPV 9.2 9.1 - 12.3 fL [facility] RBC 4.13(L) 4.30 - 5.80 M/cumm [facility] MCV 85.0 81.3 - 96.4 fL [facility] MCH 28.3 27.1 - 33.3 pg [facility] MCHC 33.3 32.3 - 35.7 g/dL [facility] RDW CV 15.1(H) 11.1 - 14.9 % [facility] RDW SD 46.9 35.7 - 48.1 fL [facility] NRBC abs 0.00 0.00 - 0.01 K/cumm [facility] Blood (Blood, Venous) 07/26/2023 3:10 PM NETWORK OPERATIONS TECHNICIAN 07/26/2023 3:27 PM NETWORK OPERATIONS TECHNICIAN Nigel Ramsey MD LAB BLOOD ORDERABLES Final Result Performing Organization Address [facility]/ZIP Co de Phone Number [facility] Department [place] [address] * (ABNORMAL) ECG 12-LEAD (07/26/2023 3:02 PM NETWORK OPERATIONS TECHNICIAN) Narrative [facility] - 07/26/2023 3:02 PM NETWORK OPERATIONS TECHNICIAN Shannon Herzog MD ? 07/26/2023 ??3:05 PM ECG 12 lead Date/Time: 07/26/2023 3:02 PM Performed by: Shannon Herzog MD Authorized by: Guille Navarro MD ?? Rate: ??ECG rate: ??87 ??ECG rate assessment: normal ?? Rhythm: ??Rhythm: sinus rhythm ?? QRS: ??QRS intervals: ??Normal Conduction: ??Conduction: normal ?? ST segments: ??ST segments: ??Abnormal ??Elevation: ??AVR ??Depression: ??II, V5 and V6 T waves: ??T waves: non-specific ?? Other findings: ??Other findings: prolonged qTc interval ?? Previous ECG: ??Previous ECG: ??Compared to current ??Date of previous ECG: ??07/04/2023 ??Comparison ECG info: ??CRISSY AVR new, previous STD II more pronounced, STD V5-6 Old ??Similarity: ??Changes noted Interpretation: ??Interpretation: abnormal ?? Procedure Note Shannon Herzog MD - 07/26/2023 3:02 PM CST Procedure ECG 12 lead Date/Time: 07/26/2023 3:02 PM Performed by: Shannon Herzog MD Authorized by: Guille Navarro MD Rate: ECG rate: 87 ECG rate assessment: normal Rhythm: Rhythm: sinus rhythm QRS: QRS intervals: Normal Conduction: Conduction: normal ST segments: ST segments: Abnormal Elevation: AVR Depression: II, V5 and V6 T waves: T waves: non-specific Other findings: Other findings: prolonged qTc interval Previous ECG: Previous ECG: Compared to current Date of previous EC07/04/2023 Comparison ECG info: CRISSY AVR new, previous STD II more pronounced, STDV5-6 Old Similarity: Changes noted Interpretation: Interpretation: abnormal Shannon Herzog MD 07/26/23 0845 us Nigel Ramsey MD ECG ORDERABLES Final Result [facility] documented in this encounter Visit Diagnoses Diagnosis Abdominal pain- Primary Abdominal pain, unspecified site Nausea and vomiting, unspecified vomiting type documented in this encounter Administered Medications Inactive Administered Medications - up to 3 most recent administrations Medication Order MAR Action Action Date Dose Rate Site droPERidol (INAPSINE) injection 0.625 mg 0.625 mg, intravenous, Administer over 5 Minutes, Once, On Tue07/26/23 at 2005, For 1 dose Given 07/26/2023 9:08 PM NETWORK OPERATIONS TECHNICIAN 0.625 mg HYDROmorphone (DILAUDID) injection 0.5 mg 0.5 mg, intravenous, Administer over 2 Minutes, Every 2 hours PRN, 1st line for pain, Starting on Tue07/26/23 at 1601 Given 07/26/2023 7:58 PM NETWORK OPERATIONS TECHNICIAN 0.5 mg Given 07/26/2023 4:10 PM NETWORK OPERATIONS TECHNICIAN 0.5 mg HYDROmorphone (DILAUDID) injection 0.5 mg 0.5 mg, intravenous, Administer over 2 Minutes, Once, On Tue07/26/23 at 1632, For 1 dose Given 07/26/2023 5:12 PM NETWORK OPERATIONS TECHNICIAN 0.5 mg ioversoL (OPTIRAY 350) syringe 100 mL 100 mL, intravenous, Once in imaging, contrast, Starting on Tue07/26/23 at 1710, For 1 dose Contrast Given 07/26/2023 5:10 PM NETWORK OPERATIONS TECHNICIAN 95 mL Lactated Ringer's (LR) bolus 1,000 mL 1,000 mL, intravenous, Once, On Tue07/26/23 at 1632, For 1 dose New Bag 07/26/2023 5:12 PM NETWORK OPERATIONS TECHNICIAN 1,000 mL ondansetron (ZOFRAN) injection 4 mg 4 mg, intravenous, Administer over 2 Minutes, Once, On Tue07/26/23 at 1602, For 1 dose Given 07/26/2023 4:09 PM NETWORK OPERATIONS TECHNICIAN 4 mg documented in this encounter Active and Recently Administered Medications Times are shown in NETWORK OPERATIONS TECHNICIAN. Scheduled Medication Order 07/24/2023 07/25/2023 07/26/2023 capsaicin (ZOSTRIX) 0.025 % cream topical, Once, On Tue07/26/23 at 2003, For 1 dose, Apply to affected area: abdomen 2003 (Due) droPERidol (INAPSINE) injection 0.625 mg (COMPLETED) 0.625 mg, intravenous, Administer over 5 Minutes, Once, On Tue07/26/23 at 2005, For 1 dose 2108 (Given - Provid er: Db Aquino RN) HYDROmorphone (DILAUDID) injection 0.5 mg (COMPLETED) 0.5 mg, intravenous, Administer over 2 Minutes, Once, On e 07/26/23 at 1632, For 1 dose 1712 (Given - Provid er: Tami Díaz RN) Lactated Ringer's (LR) bolus 1,000 mL (COMPLETED) 1,000 mL, intravenous, Once, On Tue07/26/23 at 1632, For 1 dose 1712 (New Bag - Prov ider: Tami Díaz RN)1921 (Stopped - Provider: Db Aquino, BRIA) ondansetron (ZOFRAN) injection 4 mg (COMPLETED) 4 mg, intravenous, Administer over 2 Minutes, Once, On Tue07/26/23 at 1602, For 1 dose 1609 (Given - Provid er: Tami Díaz RN) PRN Medication Order 07/24/2023 07/25/2023 07/26/2023 HYDROmorphone (DILAUDID) injection 0.5 mg (CANCELED) 0.5 mg, intravenous, Administer over 2 Minutes, Every 2 hours PRN, 1st line for pain, Starting on Tue07/26/23 at 1601 1610 (Given - Provid er: Tami Díaz RN)1958 (Given - Provider: Db Aquino RN) ioversoL (OPTIRAY 350) syringe 100 mL (COMPLETED) 100 mL, intravenous, Once in imaging, contrast, Starting on Tue07/26/23 at 1710, For 1 dose 1710 (Contrast Given - Provider: Shelly Santos, RT) documented in this encounter Orders Medications Ordered That Gerardo ht Not Have Been Administered Count Last Ordered Date First Ordered Date capsaicin (ZOSTRIX) 0.025 % cream 1 024 droPERidol (INAPSINE) injection 1.25 mg 2 0 07/26/2023 Lab Orders Without Results Count Last Ordered D ate First Ordered Date INFLUENZA A/B, RSV, AND COVID-19 PCR 1 07/01 documented in this encounter Additional Health Concerns Infection Onset Date Last Indicated Resolved Time COVID: Suspected 07/26/2023 07/26/202307/2607/26/2023 5:11 PM NETWORK OPERATIONS TECHNICIAN documented as of this encounter Care Teams Steeple Jack Relationship Specialty Start Date End Date Carl Strickland MD [address] [facility] [address] [place] [address] PCP - General Internal Medicine 06/06/23 Leo Manzano MD [address] [place] [address] Surgeon Vascular Surgery 05/16/23 documented as of this encounter
--- OUTSIDE RECORDS SUMMARY | 2024-05-30 05:36 | XMS_ITS | Encounter Summary ---
Author Organization [facility] Address [address] [place] [address] Phone Care Team Providers Care Counter Supply Worker Name Role Phone Leo Manzano MD Unavailable [phone] Carl Strickland MD Primary Care Provider Reason for Visit * Reason Onset Date Comments PHV pt follow up 09/14/2023 Encounter Details Date Type Department Care Team (Late st Contact Info) Description 09/14/2023 Telephone [facility] [address] [place] [address] [place] [id number] Franci Arnold CMA PHV pt follow up Social History Tobacco Use Types Packs/Day Years Used Date Smoking Tobacco: Never Smokeless Tobacco: Never Alcohol Use Standard Drinks/Week Comments Not Currently 0 (1 standard drink = 0.6 oz pur e alcohol) [facility] Utilities Answer Date Recorded In the past 12 months has [employer] electric, gas, oil, or water company threatened [...] declined 09/12/2023 How often do you attend anglican or christianity serv ices? Patient declined 09/12/2023 Do you belong to any clubs o r organizations such as anglican groups, unions, fraternal or athletic groups, or [...] in a mcc (including now)? Patient declined 09/12/2023 Personal Safety Answer Date Recorded Have you ever been in or are you currently in a harmful physical or emotional relationship or is someone making you feel afraid or unsafe? Denies 09/05/2023 Sex and Gender Information Value Date Recorded Sex Assigned at Not on file Legal Sex Male 3:42 AM CORRECTIONS SERGEANT Gender Identity Not on file Sexual Orientation Straight 06/12/2023 11 :43 PM CORRECTIONS SERGEANT documented as of this encounter Miscellaneous Notes * Telephone Encounter - Franci Arnold CMA - 09/14/2023 4:20 PM CDT No PHV fu needed. Message sent by Dr. Chaudhary on 09/09/2023 at 7:02pm documented in this encounter Plan of Treatment Not on file documented as of this encounter Visit Diagnoses Not on filedocumented in this encounter Care Teams Counter Supply Worker Relationship Specialty Start Date End Date Carl Strickland MD [address] [facility] [address] [place] [address] PCP - General Internal Medicine 06/06/23 Leo Manzano MD [address] [place] [address] Surgeon Vascular Surgery 05/16/23 documented as of this encounter
--- OUTSIDE RECORDS SUMMARY | 2024-05-30 05:36 | XMS_ITS | Encounter Summary ---
Author Organization [facility] Address [address] [place] [address] Care Team Providers Care Mat Cleaning Machine Operator Name Role Phone Leo Manzano MD Unavailable [phone] Carl Strickland MD Primary Care Provider Reason for Referral * MRI/CAT/PET Scan (Routine) - Closed Specialty Diagnoses / Procedures Referred By Contac t Referred To Contact Radiology Diagnoses Dissection of thoracoabdominal aorta (CMS/HCC) (HCC) Procedures CTA Chest Abdomen Pelvis Leo Manzano MD [address] [place] [address] Phone: tel: fax: [address] [address] Referral ID Status Reason Start Date Expiration Date Visits Re quested Visits Authorized [id number] Closed 07/19/2023 09/17/2023 1 1 RATION CHECKER Reason for Visit * MRI/CAT/PET Scan (Routine) - Closed Specialty Diagnoses / Procedures Referred By Contac t Referred To Contact Radiology Diagnoses Dissection of thoracoabdominal aorta (CMS/HCC) (HCC) Procedures CTA Chest Abdomen Pelvis Leo Manzano MD [address] [place] [address] Phone: tel: fax: [facility] [place] [phone] Referral ID Status Reason Start Date Expiration Date Visits Re quested Visits Authorized [id number] Closed 07/19/2023 09/17/2023 1 1 Encounter Details Date Type Department Care Team (Latest Contact Info) Description 08/03/2023 1:09 PM DECORATION CHECKER - 08/03/2023 11:59 PM DECORATION CHECKER Hospital Encounter [facility] [id number] [place] [address] Dissection of thoracoabdominal aorta (CMS/HCC) (HCC) Discharge Disposition: Discharge to home or self care Social History Tobacco Use Types Packs/Day Years Used Date Smoking Tobacco: Never Smokeless Tobacco: Never Alcohol Use Standard Drinks/Week Comments Not Currently 0 (1 standard drink = 0.6 oz pur e alcohol) [facility] Utilities Answer Date Recorded In the past 12 months has [employer] electric, gas, oil, or water [employer] threatened to shut off services in your [...] week 07/06/2023 How often do you attend [facility] or jainism services? More than 4 times per year 07/06/2023 Do you belong to any clubs o r organizations such as advent groups, unions, fraternal or athletic groups, or [...] slept in a senior care (including now)? No 07/06/2023 Personal Safety Answer Date Recorded Have you ever been in or are you currently in a harmful physical or emotional relationship or is someone making you feel afraid or unsafe? Denies 07/26/2023 Sex and Gender Information Value Date Recorded Sex Assigned at Not on file Legal Sex Male 3:42 AM DECORATION CHECKER Gender Identity Not on file Sexual Orientation Straight 06/12/2023 11 :43 PM DECORATION CHECKER documented as of this encounter Medications at [...] day 90 tablet 11 4 06/24/19 25 ondansetron ODT (ZOFRAN-ODT) 4 [...] times a day with meals 120 tablet 4 09/09/19 24 cyclobenzaprine (FLEXERIL) 10 mg tablet Take 1 tablet (10 mg total) by mouth 3 (three) times a day as needed for muscle spasms 90 tablet 4 09/27/19 24 ferrous sulfate 325 mg (65 mg of elemental iron) tablet Take 1 tablet (325 mg total) by mouth 3 (three) times a day with meals 4 09/09/19 24 gabapentin (NEURONTIN) 300 mg capsule Take 1 capsule (300 mg total) by mouth 3 (three) times a day 90 capsule 1 4 09/09/19 24 methocarbamoL (ROBAXIN) 750 mg tablet 4 08/23/19 24 metoclopramide (REGLAN) 10 mg tablet Take [...] 08/23/19 24 documented as of this encounter Discharge Disposition Disposition Code Departure Means Destination Discharge to home or self care documented in this encounter Plan of Treatment Not on file documented as of this encounter Procedures Procedure Name Priority Date/Time Associated Diagnosis Comments CTA CHEST ABDOMEN PELVIS Schedule Routine, Read Routine (OP Routine) 08/03/2023 1:22 PM DECORATION CHECKER Dissection of thoracoabdominal aorta (CMS/HCC) (HCC) POC ISTAT Routine 08/03/2023 1:19 PM DECORATION CHECKER documented in this encounter Results * CTA Chest Abdomen Pelvis (08/03/2023 1:22 PM DECORATION CHECKER) Anatomical Region Laterality Modality Body N/A Computed Tomogra phy 08/03/2023 2:43 PM DECORATION CHECKER Impressions 08/03/2023 4:11 PM DECORATION CHECKER 1. 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 2. 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 Dictated by: Dale Weber MD The radiology attending physician has personally reviewed this study, and had reviewed and/or edited this written report and agrees with it. Electronically signed by: Monster Easley M.D. Narrative 08/03/2023 4:11 PM DECORATION CHECKER EXAMINATION: ??CTA CHEST ABDOMEN PELVIS HISTORY: Aortic dissection status post endovascular repair TECHNIQUE: ??Computed tomographic angiography (CTA) of the chest, abdomen, and pelvis was performed before and after an uneventful intravenous administration of 100 mL of Optiray-350. Three-dimensional images were generated on a separate workstation and were reviewed by the radiologist. COMPARISON: 07/26/2023. FINDINGS: VASCULAR (MEASUREMENTS ORTHOGONAL TO THE LONG AXIS): Stable postsurgical changes of endovascular stent graft repair, with the proximal attachment site at the level of the left common carotid artery with a stented left subclavian artery. ??The stent again continues to the infrarenal abdominal aorta, with an unchanged dissection flap distal to the inferior aspect of the stent that extends into the proximal left common iliac artery. ??Multiple fenestrations again seen within the dissection flap. ??There is unchanged filling of the false lumen at the level of the diaphragmatic hiatus, extending to the left renal artery origin, with multiple lumbar arteries coursing into the false lumen. ??The maximum diameter of the aorta is 49 x 47 mm at the distal descending thoracic aorta, measured orthogonal to the long axis (previously 50 x 47 mm). The celiac and left renal artery arise from the false lumen with persistent stenosis at the celiac origin. ??The superior mesenteric and right renal arteries arise from the false lumen. ??Persistent outpouching at the left common femoral artery measuring 6 mm (previously 4 mm on 06/13/23). NONVASCULAR: CHEST: No suspicious thyroid nodule. ??No thoracic lymphadenopathy. Normal heart size. ??No pericardial effusion. ??The pulmonary arteries are normal caliber. ??The mediastinum appears normal. ??Esophagus is non-dilated. ??No suspicious chest wall abnormalities. ?? Central airways are patent. ??Lungs are clear without consolidation. No suspicious pulmonary nodule. ??No pleural effusion or pneumothorax. ABDOMEN/PELVIS: No suspicious abdominal wall abnormalities. ??Unchanged lesion with peripheral discontinuous arterial enhancement in hepatic segment 4A/8, likely a hemangioma. ??Gallbladder is normal. ??No intrahepatic or extrahepatic biliary ductal dilation. ??Spleen is normal. ??Pancreas is normal. ??Kidneys enhance symmetrically; no hydronephrosis or suspicious renal lesion. ??Multiple punctate nonobstructing renal stones. ??Adrenals are normal. Stomach is nondistended. ??Small bowel and colon are normal in caliber without evidence of obstruction. ??There is colonic diverticulosis without evidence of diverticulitis. ??No appendiceal inflammation. ??No pneumoperitoneum or ascites. Urinary bladder is normal. ??Prostate is present. ??No abdominal or pelvic lymphadenopathy. No acute fracture or suspicious osseous lesion. Procedure Note Monster Easley MD - 08/03/2023 EXAMINATION: CTA CHEST ABDOMEN PELVIS HISTORY: Aortic dissection status post endovascular repair TECHNIQUE: Computed tomographic angiography (CTA) of the chest, abdomen, and pelvis was performed before and after an uneventful intravenous administration of 100 mL of Optiray-350. Three-dimensional images were generated on a separate workstation and were reviewed by the radiologist. COMPARISON: 07/26/2023. FINDINGS: VASCULAR (MEASUREMENTS ORTHOGONAL TO THE LONG AXIS): Stable postsurgical changes of endovascular stent graft repair, with the proximal attachment site at the level of the left common carotid artery with a stented left subclavian artery. The stent again continues to the infrarenal abdominal aorta, with an unchanged dissection flap distal to the inferior aspect of the stent that extends into the proximal left common iliac artery. Multiple fenestrations again seen within the dissection flap. There is unchanged filling of the false lumen at the level of the diaphragmatic hiatus, extending to the left renal artery origin, with multiple lumbar arteries coursing into the false lumen. The maximum diameter of the aorta is 49 x 47 mm at the distal descending thoracic aorta, measured orthogonal to the long axis (previously 50 x 47 mm). The celiac and left renal artery arise from the false lumen with persistent stenosis at the celiac origin. The superior mesenteric and right renal arteries arise from the false lumen. Persistent outpouching at the left common femoral artery measuring 6 mm (previously 4 mm on 06/13/23). NONVASCULAR: CHEST: No suspicious thyroid nodule. No thoracic lymphadenopathy. Normal heart size. No pericardial effusion. The pulmonary arteries are normal caliber. The mediastinum appears normal. Esophagus is non-dilated. No suspicious chest wall abnormalities. Central airways are patent. Lungs are clear without consolidation. No suspicious pulmonary nodule. No pleural effusion or pneumothorax. ABDOMEN/PELVIS: No suspicious abdominal wall abnormalities. Unchanged lesion with peripheral discontinuous arterial enhancement in hepatic segment 4A/8, likely a hemangioma. Gallbladder is normal. No intrahepatic or extrahepatic biliary ductal dilation. Spleen is normal. Pancreas is normal. Kidneys enhance symmetrically; no hydronephrosis or suspicious renal lesion. Multiple punctate nonobstructing renal stones. Adrenals are normal. Stomach is nondistended. Small bowel and colon are normal in caliber without evidence of obstruction. There is colonic diverticulosis without evidence of diverticulitis. No appendiceal inflammation. No pneumoperitoneum or ascites. Urinary bladder is normal. Prostate is present. No abdominal or pelvic lymphadenopathy. No acute fracture or suspicious osseous lesion. IMPRESSION: 1. 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 2. 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 Dictated by: Dale Weber MD The radiology attending physician has personally reviewed this study, and had reviewed and/or edited this written report and agrees with it. Electronically signed by: Monster Easley M.D. Leo Manzano MD IMG CT PROCEDURES Final Re sult * POC ISTAT (08/03/2023 1:19 PM DECORATION CHECKER) Creatinine, POC, bld 1.1 0.6 - 1.3 mg/dL POC Device Number [id number] JA[facility]ON ERWINWCH POC Performer [id number] JAIRON ERWINWBRIAN Blood 08/03/2023 1:19 PM DECORATION CHECKER 08/03/2023 1:19 PM DECORATION CHECKER Leo Manzano MD LAB BLOOD ORDERABLES Final Result [facility] [address] [facility] Department of [employer] [place] [address] documented in this encounter Visit Diagnoses Diagnosis Dissection of thoracoabdominal aorta (CMS/HCC) (HCC) documented in this encounter Administered Medications Inactive Administered Medications - up to 3 most recent administrations Medication Order MAR Action Action Date Dose Rate Site ioversoL (OPTIRAY 350) injection 0.01-500 mL 0.01-500 mL, intravenous, Once in imaging, contrast, Starting on Tue08/03/23 at 1310, For 1 dose Contrast Given 08/03/2023 1:25 PM DECORATION CHECKER 100 mL documented in this encounter Orders Medications Ordered That Gerardo ht Not Have Been Administered Count Last Ordered Date First Ordered Date ioversoL (OPTIRAY 350) injec tion 0.01-500 mL 1 08/03/2023 documented in this encounter Care Teams Mat Cleaning Machine Operator Relationship Specialty Start Date End Date Carl Strickland MD [address] [facility] [address] [place] [address] PCP - General Internal Medicine 06/06/23 Leo Manzano MD [address] [place] [address] Surgeon Vascular Surgery 05/16/23 documented as of this encounter
--- OUTSIDE RECORDS SUMMARY | 2024-05-30 05:36 | XMS_ITS | Encounter Summary ---
Author Organization [facility] Address [address] [place] [address] Phone Care Team Providers Care Clock Repairer Name Role Phone Leo Manzano MD Unavailable [phone] Carl Strickland MD Primary Care Provider Encounter Details Date Type Department Care Team (Late st Contact Info) Description 07/19/2023 Orders Only [facility] Urology [address] [facility] Medical Office Building [address] [place] [address] Marcus Gamboa MD [address] [place] [address] Ureteral stone (Primary Dx) Social History Tobacco Use Types Packs/Day Years Used Date Smoking Tobacco: Never Smokeless Tobacco: Never Alcohol Use Standard Drinks/Week Comments Not Currently 0 (1 standard drink = 0.6 oz pur e alcohol) [facility] Utilities Answer Date Recorded In [...] often do you attend chur ch or mandaen services? More than 4 times per year 07/06/2023 Do you belong to any clubs o r organizations such as judaism groups, unions, fraternal or athletic groups, or [...] or slept in a alf (including now)? No 07/06/2023 Personal Safety Answer Date Recorded Getting School Help Needed Denies 05/09 Sex and Gender Information Value Date Recorded Sex Assigned at Not on file Legal Sex Male 3:42 AM CASINO ASSISTANT MANAGER Gender Identity Not on file Sexual Orientation Straight 06/12/2023 11 :43 PM CASINO ASSISTANT MANAGER documented as of this encounter Plan of Treatment Scheduled Orders Name Type Priority Associated Diagnoses Orde r Schedule Litholink 24Hr Urine Panel Lab Routine Ureteral stone Expected: 07/19/2023, Expires: 07/19/2024 Litholink 24Hr Urine Panel Lab Routine Ureteral stone Expected: 07/19/2023, Expires: 07/19/2024 documented as of this encounter Visit Diagnoses Diagnosis Ureteral stone- Primary Calculus of ureter documented in this encounter Care Teams Clock Repairer Relationship Specialty Start Date End Date Carl Strickland MD [address] [facility] [address] [place] [address] PCP - General Internal Medicine 06/06/23 Leo Manzano MD [address] [facility] [address] [place] [address] Surgeon Vascular Surgery 05/16/23 documented as of this encounter
--- OUTSIDE RECORDS SUMMARY | 2024-05-30 05:36 | XMS_ITS | Encounter Summary ---
Author Organization [facility] Address [address] [place] [address] Phone Care Team Providers Care Package Handler Name Role Phone Leo Manzano MD Unavailable [phone] Carl Strickland MD Primary Care Provider Encounter Details Date Type Department Care Team (Late st Contact Info) Description 08/15/2023 Orders Only [facility] Urology [address] [facility] Medical Office Building [address] [place] [address] Marcus Gamboa MD [address] [place] [address] Ureteral stone (Primary Dx) Social History Tobacco Use Types Packs/Day Years Used Date Smoking Tobacco: Never Smokeless Tobacco: Never Alcohol Use Standard Drinks/Week Comments Not Currently 0 (1 standard drink = 0.6 oz pur e alcohol) [facility] Utilities Answer Date Recorded In the past [...] often do you attend chur ch or oriental orthodox services? More than 4 times per year [...] place to sleep or slept in a half-way (including now)? No 07/06/2023 Personal Safety Answer Date Recorded Have you ever been in or are you currently in a harmful physical or emotional relationship or is someone making you feel afraid or unsafe? Denies 07/26/2023 Sex and Gender Information Value Date Recorded Sex Assigned at Not on file Legal Sex Male 3:42 AM CELLAR SUPERVISOR Gender Identity Not on file Sexual Orientation Straight 06/12/2023 11 :43 PM CELLAR SUPERVISOR documented as of this encounter Plan of Treatment Scheduled Orders Name Type Priority Associated Diagnoses Orde r Schedule Litholink 24Hr Urine Panel Lab Routine Ureteral stone Expected: 08/15/2023, Expires: 08/14/2024 Litholink 24Hr Urine Panel Lab Routine Ureteral stone Expected: 08/15/2023, Expires: 08/14/2024 documented as of this encounter Visit Diagnoses Diagnosis Ureteral stone- Primary Calculus of ureter documented in this encounter Care Teams Package Handler Relationship Specialty Start Date End Date Carl Strickland MD [address] [facility] 1 [place] [address] PCP - General Internal Medicine 06/06/23 Leo Manzano MD [address] [facility] [address] [place] [address] Surgeon Vascular Surgery 05/16/23 documented as of this encounter
--- OUTSIDE RECORDS SUMMARY | 2024-05-30 05:36 | XMS_ITS | Encounter Summary ---
Author Organization [facility] Address [address] [place] [address] Phone Care Team Providers Care Stoker Installer Name Role Phone Leo Manzano MD Unavailable [phone] Carl Strickland MD Primary Care Provider Encounter Details Date Type Department Care Team (Latest Contact Info) Description 07/20/2023 3:15 PM PASSENGER SOLICITOR Office Visit [facility] Cardiology [address] [facility] Advanced Medicine 8th [place] [address] [place] [address] Joaquín Abarca MD [address] [facility] [place] [address] 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 More than 4 times per year 07/06/2023 Do you belong to any clubs o r organizations such as presybeterian groups, unions, fraternal or athletic groups, or [...] place to sleep or slept in a custodial (including now)? No 07/06/2023 Personal Safety Answer Date Recorded Getting School Help Needed Denies 05/09 Sex and Gender Information Value Date Recorded Sex Assigned at Not on file Legal Sex Male 3:42 AM PASSENGER SOLICITOR Gender Identity Not on file Sexual Orientation Straight 06/12/2023 11 :43 PM PASSENGER SOLICITOR documented as of this encounter Last Filed Vital Signs Vital Sign Reading Time Taken Comments Blood Pressure 114/70 07/20/2023 3:26 PM PASSENGER SOLICITOR Pulse 73 07/20/2023 3:26 PM PASSENGER SOLICITOR Temperature - - Respiratory Rate - - Oxygen Saturation 96% 07/20/2023 3:26 PM PASSENGER SOLICITOR Inhaled Oxygen Concentration - - Weight 96.8 kg (213 lb 6.4 oz) 07/20/2023 3:26 P M PASSENGER SOLICITOR Height 175.3 cm (5' 9 ) 07/20/2023 3:26 PM PASSENGER SOLICITOR Body Mass Index 31.51 07/20/2023 3:26 PM PASSENGER SOLICITOR documented in this encounter Progress Notes * Joaquín Abarca MD - 07/20/2023 3:15 PM CST Patient Name: Eriberto Chau Provider: Joaquín Abarca MD : [id number] Date of Service: 07/20/2023 Referring: Em CHIEF COMPLAINT: Aortic dissection HISTORY OF PRESENT ILLNESS: 33 y.o. 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 We met in April 2023. He had uncontrolled hypertension in the setting of medical nonadherence. On May 01 he had an acute type B aortic dissection treated with endovascular repair because of concerns about retrograde propagation and renal insufficiency. He also had evidence for paraplegia and spinal cord ischemia. He had no syndromic features. He required a 2nd endovascular repair for malperfusion inJanuary 2023. He has been followed by vascular surgery with repeat imaging studies because of dilatation of the aorta. He has been compliant with his antihypertensive therapy. Pressures at home 130/80 or less. Here the blood pressure was 114/70. He has chronic back pain and takes intermittent narcotic therapy. PREVIOUS CARDIOVASCULAR PROCEDURES MEDICATIONS: Outpatient Encounter Medications as of 07/20/2023 Medication Sig Dispense Refill amLODIPine (NORVASC) 10 [...] for nausea or vomiting 10 tablet 0 QUEtiapine (SEROquel) 50 mg [...] dinner for 15 days 15 capsule 0 [DISCONTINUED] acetaminophen 500 mg capsule Take 2 capsules (1,000 mg total) by mouth every 6 (six)hours as needed for pain 30 tablet 0 [DISCONTINUED] albuterol HFA (PROVENTIL HFA,VENTOLIN HFA,PROAIR HFA) 90 mcg/actuation inhaler Inhale 2 puffs every 4 (four) hours as needed for wheezing 1 each 0 [] methocarbamoL (ROBAXIN) 750 mg tablet Take 1 tablet (750 mg total) by mouth 3 (three) times a day for 10 days 30 tablet 0 oxyBUTYnin XL (DITROPAN-XL) 10 mg 24 hr tablet Take 1 tablet (10 mg total) by mouth daily for 14 days (Patient not taking: Reported on 07/20/2023) 14 tablet 0 oxyCODONE (ROXICODONE) 5 mg immediate release tablet Take 1 tablet (5 mg total) by mouth every 4 (four) hours as needed for pain (Patient not taking: Reported on 07/20/2023) 30 tablet 0 [DISCONTINUED] hyoscyamine (LEVSIN) 0.125 mg SL tablet Take 1 tablet (125 mcg total) by mouth every6 (six) hours for 14 days (Patient not taking: Reported on 07/20/2023) 56 tablet 0 [DISCONTINUED] lidocaine (ASPERCREME) 4 % adhesive patch,medicated Place 3 patches on the skin daily [DISCONTINUED] ondansetron ODT (ZOFRAN-ODT) 4 mg disintegrating tablet Take 1 tablet (4 mg total) by mouth every 8 (eight) hours as needed for nausea or vomiting 20 tablet 0 [DISCONTINUED] phenazopyridine (PYRIDIUM) 100 mg tablet Take 2 tablets (200 mg total) by mouth 3 (three) times a day with meals (Patient not taking: Reported on 07/20/2023) 30 tablet 0 No facility-administered encounter medications on file as of 07/20/2023. REVIEW OF SYSTEMS: General: No fever, chills, malaise or fatigue Eyes: No alterations in visual acuity Pulmonary: No dyspnea, cough or hemoptysis Cardiac: No chest pain, orthopnea, PND or palpitations GI: No nausea, vomiting, diarrhea or constipation Musculoskeletal: No myalgias or arthralgias other than the chronic back pain. Heme: no excessive bleeding or bruising PHYSICAL EXAM: BP 114/70 Pulse 73 Ht 175.3 cm (5' 9 ) Wt 96.8 kg (213 lb 6.4 oz) SpO2 96% BMI 31.51 kg/m?? General: Well appearing, No pain or distress, well nourished Eyes: BERNARDO/EOMI, Conjuctiva anicteric Neck: Supple Respiratory: Clear to ausculation bilaterally; no wheezing/rales/rhonchi; respirations unlabored Cardiovascular: RRR, normal S1 and S2. No S3 or S4. No murmurs or rubs. Carotid upstrokes brisk bilaterally and without bruits. Normal PMI Gastrointestinal: soft, non-tender abdomen, no masses palpable, no HSM, Extremities: no cyanosis or clubbing or edema Musculoskeletal: no obvious joint deformities Skin: no obvious rash or bruising Psychiatric: normal affect Neurologic: awake/alert, no focal deficits The patient had CT angiogram of the chest on July 01, 2023 that reported the endovascular repairto look stable with the proximal endoleak. However the aorta was reported to have increased in sizeat 52 x 47 mm in the descending aorta. The patient is scheduled for follow-up imaging on Julynd follow up with his vascular surgeon ASSESSMENT & PLAN: 1. Dissection of thoracoabdominal aorta (CMS/HCC) (HCC) Patient has type B aortic dissection. This is likely due to underlying hypertension. However given the young age at dissection genetic testing is recommended. He is awaiting consultation with the genetic counselor for gene DX and then we will go forward with gene testing if affordable. He will have follow-up imaging by his vascular surgeon. 2. Primary hypertension Blood pressure under much better control. He is tolerating all medications well. He will continue the current medications. I will see him back in the office in 4 months in follow-up Joaquín Abarca MD This note was written using a voice recognition system hardware device. Please note there may be variance in spelling, grammar, and syntax because of the voice recognition system hardware. Not every sentence has been reviewed in its entirety and if there are any concerns about the verbage above please contact Dr. Abarca directly at [phone]. ENGER SOLICITOR documented in this encounter Plan of Treatment Not on file documented as of this encounter Visit Diagnoses Diagnosis Dissection of thoracoabdominal aorta (CMS/HCC) (HCC)- Primary Primary hypertension Unspecified essential hypertension documented in this encounter Discontinued Medications Medication Sig Discontinue Reason Start Date End Da te ondansetron ODT (ZOFRAN-ODT) 4 mg disintegrating tablet Take 1 tablet (4 mg total) by mouth every 8 (eight) hours as needed for nausea or vomiting Duplicate order 07/08/2023 07/20/2023 acetaminophen 500 mg capsule Take 2 capsules (1,000 mg total) by mouth every 6 (six) hours as needed for pain 05/16/2023 07/20/2023 albuterol HFA (PROVENTIL HFA,VENTOLIN HFA,PROAIR HFA) 90 mcg/actuation inhaler Inhale 2 puffs every 4 (four) hours as needed for wheezing 05/16/2023 07/20/2023 hyoscyamine (LEVSIN) 0.125 mg SL tabletIndications:Urinary Incontinence Take 1 tablet (125 mcg total) by mouth every 6 (six) hours for 14 days 07/08/2023 07/20/2023 lidocaine (ASPERCREME) 4 % adhesive patch,medicated Place 3 patches on the skin daily 06/25/2023 07/20/2023 phenazopyridine (PYRIDIUM) 100 mg tablet Take 2 tablets (200 mg total) by mouth 3 (three) times a day with meals 07/08/2023 07/20/2023 documented as of this encounter Care Teams Stoker Installer Relationship Specialty Start Date End Date Carl Strickland MD [address] [place] [address] PCP - General Internal Medicine 06/06/23 Leo Manzano MD [address] [facility] [address] [place] [address] Surgeon Vascular Surgery 05/16/23 documented as of this encounter
--- OUTSIDE RECORDS SUMMARY | 2024-05-30 05:36 | XMS_ITS | Encounter Summary ---
Author Organization [facility] Address [address] [place] [address] Phone Care Team Providers Care Insurance Loss Adjuster Name Role Phone Leo Manzano MD Unavailable [phone] Carl Strickland MD Primary Care Provider Reason for Visit * Reason Onset Date Comments Genetic testing Update 07/18/2023 Encounter Details Date Type Department Care Team (Late st Contact Info) Description 07/18/2023 Telephone [facility] Cardiology [address] [facility] 8th [place] [address] [place] [address] Joaquín Abarca MD [address] [facility] [address] [place] [address] Genetic testing Update Social History Tobacco Use Types Packs/Day Years Used Date Smoking Tobacco: Never Smokeless Tobacco: Never Alcohol Use Standard Drinks/Week Comments Not Currently 0 (1 standard drink = 0.6 oz pur e alcohol) [facility] Utilities Answer Date Recorded In the [...] 07/06/2023 How often do you attend chur or adventist services? More than 4 times per year [...] on file Legal Sex Male 3:42 AM MUCK MINER BLASTING Gender Identity Not on file Sexual Orientation Straight 06/12/2023 11 :43 PM MUCK MINER BLASTING documented as of this encounter Miscellaneous Notes * Telephone Encounter - Mariah Case RN - 07/21/2023 8:36 AM CST See related task. Pt has genetic counseling session 08/10. MINER BLASTING * Telephone Encounter - Mariah Case RN - 07/18/2023 2:53 PM CST I spoke with mom. She reports pt does not have an appt with [facility] to do genetic counseling. She states pt called her after I called and was confused about next steps. Mom is not certain if pt or GFread portal, with instructions, but I provided number to MGT and she will check portal also. She will provide update on 07/20. MINER BLASTING * Telephone Encounter - Jolly Glass - 07/18/2023 2:18 PM CST PT MOM CALLED BACK REGARDING GENETIC TESTING, PLS CALL MINER BLASTING * Telephone Encounter - Mariah Case RN - 07/18/2023 2:09 PM CST I spoke with pt. He reports he has an upcoming genetic counseling session, but unable to confirm date at present. He has ov 07/[address] Abarca and will let us know at that time. MINER BLASTING * Telephone Encounter - Mariah Case RN - 07/18/2023 2:09 PM CST ----- Message from Mariah Case RN sent at 06/27/2023 11:27 AM MUCK MINER BLASTING ----- Regarding: Genetic Testing #1--------has f/u 07/20, with Dr. Abarca MINER BLASTING documented in this encounter Plan of Treatment Not on file documented as of this encounter Visit Diagnoses Not on filedocumented in this encounter Care Teams Insurance Loss Adjuster Relationship Specialty Start Date End Date Carl Strickland MD [address] [facility] [address] [place] [address] PCP - General Internal Medicine 06/06/23 Leo Manzano MD [address] [place] [address] Surgeon Vascular Surgery 05/16/23 documented as of this encounter
--- OUTSIDE RECORDS SUMMARY | 2024-05-30 05:36 | XMS_ITS | Encounter Summary ---
Author Organization [facility] Address [address] [place] [address] Phone Care Team Providers Care Child Protective Services Social Worker Name Role Phone Leo Manzano MD Unavailable [phone] Carl Strickland MD Primary Care Provider Encounter Details Date Type Department Care Team (Late st Contact Info) Description 08/16/2023 Telephone [facility] Vascular Surgery [facility] Medical Office [address] [place] [address] Girma Chang, A Social History Tobacco Use Types Packs/Day Years Used Date Smoking Tobacco: Never Smokeless Tobacco: Never Alcohol Use Standard Drinks/Week Comments Not Currently 0 (1 standard drink = 0.6 oz pur e alcohol) [facility] Utilities Answer Date Recorded In the past 12 months has [employer] electric, gas, oil, or water company threatened [...] often do you attend chur ch or rastafarian services? More than 4 times per year 07/06/2023 Do you belong to any clubs o r organizations such as mu-ism groups, unions, fraternal or athletic groups, or [...] slept in a senior living (including now)? No 07/06/2023 Personal Safety Answer Date Recorded Have you ever been in or are you currently in a harmful physical or emotional relationship or is someone making you feel afraid or unsafe? Denies 07/26/2023 Sex and Gender Information Value Date Recorded Sex Assigned at Not on file Legal Sex Male 3:42 AM GLASS PROCESSING WORKER Gender Identity Not on file Sexual Orientation Straight 06/12/2023 11 :43 PM GLASS PROCESSING WORKER documented as of this encounter Miscellaneous Notes * Telephone Encounter - Girma Chang RMA - 08/16/2023 2:18 PM CDT pt and his girlfriend called stating that the Flexeril that was prescribed has not given him any relief. He has been laid up in bed for the last couple of days, still has intense back pain and wants to know if you talked to your other colleagues (this is what his girlfriend said you told them in the visit) re: what this could be and/or have him see Neurology? He has an appt w/ PM on 09/26. Per JWO, Refer to pain management, I don't think it's his aorta but don't want to miss another cause. documented in this encounter Plan of Treatment Not on file documented as of this encounter Visit Diagnoses Not on filedocumented in this encounter Care Teams Child Protective Services Social Worker Relationship Specialty Start Date End Date Carl Strickland MD [address] [facility] [address] [place] [address] PCP - General Internal Medicine 06/06/23 Leo Manzano MD [address] [place] [address] Surgeon Vascular Surgery 05/16/23 documented as of this encounter
--- OUTSIDE RECORDS SUMMARY | 2024-05-30 05:36 | XMS_ITS | Encounter Summary ---
Author Organization [facility] Address [address] [place] [address] Care Team Providers Care Concrete Laborer Name Role Phone Leo Manzano MD Unavailable [phone] Carl Strickland MD Primary Care Provider Genevieve Hunt RN Unavailable [phone] Reason for Visit * Reason Onset Date Comments Scheduling Appointments 07/18/2023 Encounter Details Date Type Department Care Team (Late st Contact Info) Description 07/18/[address] [facility] Advanced Medicine [address] [place] [id number] Radha Laurent CMA Scheduling Appointments Social History Tobacco Use Types Packs/Day Years Used Date Smoking Tobacco: Never Smokeless Tobacco: Never Alcohol Use Standard Drinks/Week Comments Not Currently 0 (1 standard drink = 0.6 oz pur e alcohol) [facility] Utilities Answer Date Recorded In the past 12 months has [employer] electric, gas, oil, or water company threatened [...] declined 10/02/2023 How often do you attend amish or advent serv ices? Patient declined 10/02/2023 Do you belong to any clubs o r organizations such as amish groups, unions, fraternal or athletic groups, or [...] on file Legal Sex Male 3:42 AM CARPENTER CRADLE AND DOLLY Gender Identity Not on file Sexual Orientation Straight 06/12/2023 11 :43 PM CARPENTER CRADLE AND DOLLY documented as of this encounter Miscellaneous Notes * Telephone Encounter - Radha Laurent - 11/17/2023 3:21 PM CDT N/a documented in this encounter Plan of Treatment Not on file documented as of this encounter Goals Goal Patient Goal Type Associated Problems Recent Progress Patient-Stated? Author CCM Chronic Pain Care Plan Chronic Care Management No change(05/16 2:51 PM CARPENTER CRADLE [employer] DOLLY) No Rita Landa, BRIA Note: Problem: Chronic Pain Goals: 1. Minimize further functional decline 2. Maximize quality of life 3. Control pain Strategies: - Activity/exercise program recommendation - Conservative stepwise pain medicine strategy with multi-disciplinary approach - Recommend healthy lifestyle strategies and compensatory methods as needed documented as of this encounter Visit Diagnoses Not on filedocumented in this encounter Additional Health Concerns Infection Onset Date Last Indicated Resolved Time COVID: Suspected 07/26/2023 07/26/2023 07/26/2023 5:11 PM CARPENTER CRADLE [employer] DOLLY COVID: Suspected 08/23/2023 08/23/2023 08/23/2023 10:00 AM CDT COVID: Suspected 09/06/2023 09/06/2023 09/06/2023 1:13 AM CDT documented as of this encounter Care Teams Concrete Laborer Relationship Specialty Start Date End Date Carl Strickland MD [address] [facility] [address] [place] [address] PCP - General Internal Medicine 06/06/23 Leo Manzano MD [address] [place] [address] Surgeon Vascular Surgery 05/16/23 Genevieve Hunt RN [address] [facility] [address] [place] [address] SHOP Outpatient Evening Or Night Nurse Supervisor 09/12/23 09/12/23 documented as of this encounter
--- OUTSIDE RECORDS SUMMARY | 2024-05-30 05:36 | XMS_ITS | Encounter Summary ---
Author Organization [facility] Address [address] [place] [address] Phone Care Team Providers Care Unit Tender Name Role Phone Leo Manzano MD Unavailable [phone] Carl Strickland MD Primary Care Provider Encounter Details Date Type Department Care Team (Late st Contact Info) Description 07/18/2023 Telephone [facility] Surgery [address] [place] [address] Social History Tobacco Use Types Packs/Day Years Used Date Smoking Tobacco: Never Smokeless Tobacco: Never Alcohol Use Standard Drinks/Week Comments Not Currently 0 (1 standard drink = 0.6 oz pur e alcohol) [facility] Utilities Answer Date Recorded In the past 12 months has [employer], gas, oil, or water [employer] threatened to shut off services in your [...] week 07/06/2023 How often do you attend [facility] or latter-day services? More than 4 times per year [...] place to sleep or slept in a fpc (including now)? No 07/06/2023 Personal Safety Answer Date Recorded Getting School Help Needed Denies 05/09 Sex and Gender Information Value Date Recorded Sex Assigned at Not on file Legal Sex Male 3:42 AM RAILROAD ACCOUNTANT Gender Identity Not on file Sexual Orientation Straight 06/12/2023 11 :43 PM RAILROAD ACCOUNTANT documented as of this encounter Miscellaneous Notes * Telephone Encounter - Kathy Boudreaux RMA - 07/19/2023 8:29 AM CST I spoke with Eriberto Lal's mother, he did receive the first container but messed them up. I have requested a second container ROAD ACCOUNTANT * Telephone Encounter - [address] - 07/18/2023 3:51 PM CST Date: 07/18/2023 Reason for Call: Patient's mother calling to request a new 24 hr urine test kit. Patient Provider: [facility] Information: Outcome/Plan: ROAD ACCOUNTANT documented in this encounter Plan of Treatment Not on file documented as of this encounter Visit Diagnoses Not on filedocumented in this encounter Care Teams Unit Tender Relationship Specialty Start Date End Date Carl Strickland MD [address] [facility] 1 [place] [address] PCP - General Internal Medicine 06/06/23 Leo Manzano MD [address] [place] [address] Surgeon Vascular Surgery 05/16/23 documented as of this encounter
--- OUTSIDE RECORDS SUMMARY | 2024-05-30 05:36 | XMS_ITS | Encounter Summary ---
Author Organization [facility] Address [address] [place] [address] Care Team Providers Care Viscose Cellar Charge Hand Name Role Phone Leo Manzano MD Unavailable [phone] Carl Strickland MD Primary Care Provider Encounter Details Date Type Department Care Team (Latest Contact Info) Description 07/08/2023 Telephone Urology Gisele Courtney, CLAIMS TECHNICIAN [address] [facility] [address] [place] [address] Social History Tobacco Use Types Packs/Day Years Used Date Smoking Tobacco: Never Smokeless Tobacco: Never Alcohol Use Standard Drinks/Week Comments Not Currently 0 (1 standard drink = 0.6 oz pur e alcohol) [facility] Utilities Answer Date Recorded In the past 12 months has [employer], gas, oil, or water [employer] threatened to shut off services in your [...] 07/06/2023 How often do you attend [facility] or tenriism services? More than 4 times per year 07/06/2023 Do you belong to any clubs o r organizations such as mosque groups, unions, fraternal or athletic groups, or [...] on file Legal Sex Male 3:42 AM TREE FARMER Gender Identity Not on file Sexual Orientation Straight 06/12/2023 11 :43 PM TREE FARMER documented as of this encounter Miscellaneous Notes * Telephone Encounter - Gisele Courtney NP - 07/08/2023 11:14 AM CST S/p stone extraction with stent placement. Please schedule in [facility] on 07/14/2023 at 1030 for cysto with stent removal Thank you, Gisele FARMER documented in this encounter Plan of Treatment Not on file documented as of this encounter Visit Diagnoses Not on filedocumented in this encounter Care Teams Viscose Cellar Charge Hand Relationship Specialty Start Date End Date Carl Strickland MD [address] [address] PCP - General Internal Medicine 06/06/23 Leo Manzano MD [address] [place] [address] Surgeon Vascular Surgery 05/16/23 documented as of this encounter
--- OUTSIDE RECORDS SUMMARY | 2024-05-30 05:36 | XMS_ITS | Encounter Summary ---
Author Organization [facility] Address [address] [facility] [address] [place] [address] Phone Care Team Providers Care Call Out Operator Name Role Phone Leo Manzano MD Unavailable [phone] Carl Strickland MD Primary Care Provider Reason for Visit * Reason Comments Return Patient * Consultation (Routine) - Authorized Specialty Diagnoses / Procedures Referred By Fernando alan Referred To Contact Vascular Surgery Diagnoses Dissection of abdominal aorta (CMS/HCC) (HCC) Aftercare following surgery of the circulatory system Carl Strickland MD [address] [facility] 1 [place] [address] Phone: tel: fax: Leo Manzano MD [address] [facility] [address] [place] [address] Phone: tel: fax: Referral ID Status Reason Start Date Expiration Date Visits Requested Visits Authorized [id number] Authorized Specialty Services Required 06/07/2023 07/06/2024 12 12 Encounter Details Date Type Department Care Team (Latest Contact Info) Description 08/03/2023 2:45 PM TORTILLA MAKER Office Visit [facility] Vascular Surgery [address] [place] [address] Medical Office Building [address] [place] [address] Leo Manzano MD [address] [place] [address] 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 More than 4 times per year 07/06/2023 Do you belong to any clubs o r organizations such as lutheran groups, unions, fraternal or athletic groups, or [...] on file Legal Sex Male 3:42 AM TORTILLA MAKER Gender Identity Not on file Sexual Orientation Straight 06/12/2023 11 :43 PM TORTILLA MAKER documented as of this encounter Last Filed Vital Signs Vital Sign Reading Time Taken Comments Blood Pressure 124/73 08/03/2023 2:15 PM TORTILLA MAKER Pulse 69 08/03/2023 2:15 PM TORTILLA MAKER Temperature 36.5 ??C (97.7 ??F) 08/03/2023 2:15 PM CS T Respiratory Rate - - Oxygen Saturation 99% 08/03/2023 2:15 PM TORTILLA MAKER Inhaled Oxygen Concentration - - Weight 94.8 kg (209 lb) 08/03/2023 2:15 PM TORTILLA MAKER Height 175.3 cm (5' 9 ) 08/03/2023 2:15 PM TORTILLA MAKER Body Mass Index 30.86 08/03/2023 2:15 PM TORTILLA MAKER documented in this encounter Ordered Prescriptions Prescription Sig Dispense Quantity Refills Last Filled Start Date End Date cyclobenzaprine (FLEXERIL) 10 mg tablet Take 1 tablet (10 mg total) by mouth 3 (three) times a day as needed for muscle spasms 90 tablet 08/03/2023 09/27/2023 documented in this encounter Progress Notes * Leo Manzano MD - 08/03/2023 2:45 PM CST Patient: Eriberto Chau Date of : 1990 Date of Service: 08/04/2023 POSTOPERATIVE VISIT HISTORY OF PRESENT ILLNESS: Patient is a 33 y.o. male patient who underwent TBE on 05/02/23 and distal extension by Dr. Samuel on 06/05/23. PHYSICAL EXAMINATION: VITAL SIGNS: Vitals BP 124/73 (BP Location: Right arm, Patient Position: Sitting) Pulse 69 Temp 36.5 ??C (97.7 ??F) Ht 175.3 cm (5' 9 ) Wt 94.8 kg (209 lb) SpO2 99% BMI 30.86 kg/m?? Incisions clean/dry/intact. RADIOLOGY: I personally reviewed the CT chest abdomen pelvis which demonstrates unchanged thoracoabdominal aortic dissection with a previous placed TB with distal extension using both covered a non-covered stents. There was no significant aneurysmal degeneration ASSESSMENT/PLAN: Eriberto is a 33-year-old male with a type B aortic dissection who has been endovascularly managed atthis point in time. He is doing very well from an imaging standpoint, although he continues to report significant pain, largely in the back. He is unclear that the time course etiology. I am startinghim on multimodal therapy as I do not believe it is related to his aorta, and we will plan to try to minimize narcotics moving forward. ILLA MAKER documented in this encounter Plan of Treatment Not on file documented as of this encounter Visit Diagnoses Diagnosis Dissection of thoracoabdominal aorta (CMS/HCC) (HCC)- Primary documented in this encounter Historical Medications * This list may reflect changes made after this encounter. Medication Sig Dispense Quantity Refills Last Filled Start D ate End Date methocarbamoL (ROBAXIN) 750 mg tablet 07/29/2023 08/23/2023 added in this encounter Care Teams Call Out Operator Relationship Specialty Start Date End Date Carl Strickland MD [address] [facility] 1 [place] [address] PCP - General Internal Medicine 06/06/23 Leo Manzano MD [address] [facility] [address] [place] [address] Surgeon Vascular Surgery 05/16/23 documented as of this encounter
--- OUTSIDE RECORDS SUMMARY | 2024-05-30 05:36 | XMS_ITS | Encounter Summary ---
Author Organization [facility] Address [address] [place] [address] Phone Care Team Providers Care Ase Certified Technician Name Role Phone Leo Manzano MD Unavailable [phone] Carl Strickland MD Primary Care Provider Encounter Details Date Type Department Care Team (Late st Contact Info) Description 09/26/2023 Telephone [facility] Surgery [address] [place] [address] Daryl Farris Social History Tobacco Use Types Packs/Day Years Used Date Smoking Tobacco: Never Smokeless Tobacco: Never Alcohol Use Standard Drinks/Week Comments Not Currently 0 (1 standard drink = 0.6 oz pur e alcohol) [facility] Utilities Answer Date Recorded In the past 12 months has [employer], gas, oil, or water [employer] threatened to shut off services in your home? Patient declined 09/12/2023 Social Connection and Isolation Panel [NHANES] A nswer Date Recorded In a typical week, how many times do you talk on the phone with family, friends, or neighbors? Patient declined 09/12/2023 How often do you get togethe r with friends or relatives? Patient declined 09/12/2023 How often do you attend rastafarian or mosque serv ices? Patient declined 09/12/2023 Do you belong to any clubs o r organizations such as rastafarian groups, unions, fraternal or athletic groups, or [...] or slept in a residential (including now)? Patient declined 09/12/2023 Personal Safety Answer Date Recorded Have you ever been in or are you currently in a harmful physical or emotional relationship or is someone making you feel afraid or unsafe? Denies 09/27/2023 Sex and Gender Information Value Date Recorded Sex Assigned at Not on file Legal Sex Male 3:42 AM RESEARCH AND DEVELOPMENT SPECIALIST Gender Identity Not on file Sexual Orientation Straight 06/12/2023 11 :43 PM RESEARCH AND DEVELOPMENT SPECIALIST documented as of this encounter Miscellaneous Notes * Telephone Encounter - Kathy Boudreaux RMA - 09/27/2023 9:55 AM CDT I spoke with Ms Blankenship, the are currently upstairs at pain management, they will go through ER when they leave there. They declined the appointment with Dr Walker/Wilda. * Telephone Encounter - Daryl Farris - 09/26/2023 8:37 AM CDT Date: 09/26/2023 Reason for Call: The patient's mother, Meron, is calling because the patient is in the [place] emergency room this morning. Per Meron, the patient has a large kidney stone that he is unable to pass. Meron mentioned that the ER physician spoke to Dr. Gamboa regarding the patient. Per Meron, it was advised that the patient go through [place] emergency room or it could go home with pain medication and flomax, which the patient is currently on, and try to get in sooner than 5/10with Dr. Gamboa. Meron stated that the patient did not take the option to go to [place] ER after leaving [place] ER because the patient has an appointment with pain management tomorrow that took him a month to get into due to missing the appointment because of ER visits. Meron wants to know if the patient can be seen sooner than 5/10. Patient Provider: Dr. Gamboa Medical/Surgical Information: Outcome/Plan: documented in this encounter Plan of Treatment Not on file documented as of this encounter Goals Goal Patient Goal Type Associated Problems Recent Progress Patient-Stated? Author CCM Chronic Pain Care Plan Chronic Care Management No change(05/16 2:51 PM RESEARCH AND DEVELOPMENT SPECIALIST) No Rita Landa, RN Note: Problem: Chronic Pain Goals: 1. Minimize further functional decline 2. Maximize quality of life 3. Control pain Strategies: - Activity/exercise program recommendation - Conservative stepwise pain medicine strategy with multi-disciplinary approach - Recommend healthy lifestyle strategies and compensatory methods as needed documented as of this encounter Visit Diagnoses Not on filedocumented in this encounter Care Teams Ase Certified Technician Relationship Specialty Start Date End Date Carl Strickland MD [address] [facility] 1 [place] [address] PCP - General Internal Medicine 06/06/23 Leo Manzano MD [address] [place] [address] Surgeon Vascular Surgery 05/16/23 documented as of this encounter
--- OUTSIDE RECORDS SUMMARY | 2024-05-30 05:36 | XMS_ITS | Encounter Summary ---
Author Organization [facility] Healthcare Address [address] [place] [address] Care Team Providers Care Backwinder Name Role Phone Leo Manzano MD Unavailable [phone] Carl Strickland MD Primary Care Provider Reason for Visit * Reason Comments Flank Pain * Auth/Cert (Routine) Specialty Diagnoses / Procedures Referred By Contac t Referred To Contact Diagnoses Ureteral calculi Procedures na Referral ID Status Reason Start Date Expiration Date Visits Re quested Visits Authorized [id number] 1 1 Encounter Details Date Type Department Care Team (Late st Contact Info) Description 09/27/2023 11:02 AM CDT - 09/27/2023 11:15 PM CDT Emergency [address] [id number] Heber Arroyo MD [address] [place] [address] Gricelda Atkins MD [address] [place] [id number] Ureteral calculi [N20.1] (Primary Dx); Flank pain; Right nephrolithiasis; ANGI (acute kidney injury) (HCC) Discharge Disposition: Left Against Medical Advice Social History Tobacco Use Types Packs/Day Years [...] declined 09/12/2023 How often do you attend mormonism or amish serv ices? 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 Gender Identity Not on file Sexual Orientation Straight 06/12/2023 11 :43 PM GEOTHERMAL INSTALLER documented as of this encounter Last Filed Vital Signs Vital Sign Reading Time Taken Comments Blood Pressure 141/70 09/27/2023 8:13 PM CDT Pulse 73 09/27/2023 8:13 PM CDT Temperature 36.4 ??C (97.5 ??F) 09/27/2023 8:13 PM CD T Respiratory Rate 16 09/27/2023 8:13 PM CDT Oxygen Saturation 96% 09/27/2023 8:13 PM CDT Inhaled Oxygen Concentration - - [...] 09/27/2023 Primary Care Physician: Carl Strickland MD [phone] SUBJECTIVE: 33-year-old male with history of aortic [...] CTA chest abdomen pelvis dated 09/26/2023 from [facility], CT dated 08/23/2023 from [facility] FINDINGS: Mild bibasilar atelectasis. 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 Principal Problem: Ureteral calculi Full Code The [...] chronic pain 06/24/2023 Pseudoaneurysm following procedure (CMS/HCC) (HCC) 06/24/2023 Infrarenal abdominal aortic aneurysm, without rupture ([facility]) 06/13/2023 Polysubstance abuse (CMS/HCC) (HCC) 06/10/2023 Moderate malnutrition (CMS/HCC) (HCC) 06/09/2023 Dissection of abdominal aorta (CMS/HCC) (HCC) 06/03/2023 Urinary retention 05/16/2023 Epistaxis 05/13/2023 Pneumonia 05/13/2023 HTN (hypertension) 05/13/2023 Dissection of thoracoabdominal aorta (CMS/HCC) (HCC) 05/02/2023 Dissection of aorta, unspecified portion of aorta (HCC) 05/01/2023 Past Medical History: Diagnosis Date Abdominal pain Anxiety Depression Hypertension Kidney stones Memory loss Past Surgical History: Procedure Laterality Date ABDOMINAL AORTIC ANEURYSM REPAIR Allergies Allergen Reactions Lisinopril Angioedema Amoxicillin Hives Med List Status: Pharmacy Complete Set By: Priscilla Pagan RPh at 09/27/2023 1:59 PM Taking? Last Dose Start Date End Date Provider acetaminophen (TYLENOL) 500 mg tablet Unknown -- -- Provider, Historical, MD amitriptyline (ELAVIL) 25 mg tablet 09/26/2023 [...] Medication protocol when under care of a FOOD PRODUCTS SALES REPRESENTATIVE Planned anesthesia: General Team communication plan: LMA Induction: Induction: intravenous. Postoperative Plan: Postoperative administration opioids intended. No postoperative mechanical ventilation intended. Patient's planned disposition post procedure is Floor. Informed Consent: Discussed plan with FOOD PRODUCTS SALES REPRESENTATIVE. Anesthesia plan and risks discussed with patient. [...] Glass MD - 09/27/2023 6:16 PM CDT [facility] Urology Consultation Reason for Consult: Right ureteral [...] Max: 100 % Most Recent : Vitals: 09/27/231809 BP: 147/88 Pulse: 79 Resp: 14 Temp: [...] function postoperatively Will follow Marcus Glass MD [facility] Urology documented in this encounter ED Notes [...] Hypokalemia 10/02/2023 ??? ANGI (acute kidney injury) ([facility]) 10/02/2023 ??? Syncope 10/02/2023 ??? Ureteral calculi 09/27/2023 ??? 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 Back pain at L4-L5 level 08/23/2023 ??? PFO (patent foramen ovale) 07/05/2023 ??? Ureteral stone 07/04/2023 ??? Abdominal pain 07/04/2023 ??? Other chronic pain 06/24/2023 ??? Pseudoaneurysm following procedure (CMS/HCC) ([facility]) 06/24/2023 ??? Infrarenal abdominal aortic aneurysm, without rupture ([facility]) 06/13/2023 ??? Polysubstance abuse (CMS/HCC) ([facility]) 06/10/2023 ??? Moderate malnutrition (CMS/HCC) ([facility]) 06/09/2023 ??? Dissection of abdominal aorta (CMS/HCC) ([facility]) 06/03/2023 ??? Urinary retention 05/16/2023 ??? Epistaxis 05/13/2023 ??? Pneumonia 05/13/2023 ??? HTN (hypertension) 05/13/2023 ??? Dissection of thoracoabdominal aorta (CMS/HCC) ([facility]) 05/02/2023 ??? Dissection of aorta, unspecified portion of aorta ([facility]) 05/01/2023 Past Medical History: Diagnosis Date ??? [...] alert. Psychiatric: Mood and Affect: Mood normal. [facility] Medical Decision Making 33-year-old with known renal [...] admission. By: Heber Arroyo MD Time: 09/26 1304 Comment: Writhing in pain secondary to his renal stone. By: Heber Arroyo MD Time: 09/26 1304 Value: Creatinine(!): 2.12 Comment: Concerning. Awaiting imaging to consult with Urology By: Heber Arroyo MD Time: 09/26 1304 Comment: CT delayed due to inability to control his pain. We are escalating analgesic dosing as we speak. By: Heber Arroyo MD Final diagnoses: Flank pain Ureteral calculi [N20.1] Heber Arroyo MD 10/03/23 0752 * Dacia Brewster RN - 09/27/2023 10:55 AM CDT States he was seen at [facility] yesterday and was told he has a 7mm stone in right kidney. States he was told he needs a stent placed, but [facility] does not have urology. Endorses dark urine, [...] started the case by inserting a 22 Tristanian cystoscope atraumatically into the bladder. Cystoscopydid not [...] was advanced into the renal pelvis. Five Tristanian open-ended catheter was advanced over the wire and retrograde pyelogram obtained. This showed stone in the proximal ureter with mild upstream hydronephrosis. The wire was replaced. An 11/13 Tristanian ureteral access sheath was advanced over the [...] Time Provider Department Center 10/07/2023 9:00 AM [facility] [id number] B[facility]N US [facility] Main IMG 10/07/2023 10:00 AM Marcus Gamboa MD [facility] CAM 11C [facility] 10/14/2023 10:20 AM Marcus Gamboa MD [facility] CAM 11C [facility] 11/14/2023 1:30 PM Amanda Macias MD CAM PAIN [facility] CAM 11/23/2023 3:30 PM Joaquín Abarca MD CAR CAM 8B Cardiology 02/15/2024 12:00 PM [facility] WCHCT2 [facility] CT [id number] 02/15/2024 1:00 PM Leo Manzano MD [facility] [id number] [place] documented in this encounter Plan of Treatment Scheduled Orders Name Type Priority Associated Diagnoses Order Schedule Surgical pathology Pathology and Cytology Timed Flank pain Release Upon Ordering for 1 Occurrences starting 09/27/2023 documented as of this encounter Goals Goal Patient Goal Type Associated Problems Recent Progress Patient-Stated? Author CCM Chronic Pain Care Plan Chronic Care Management No change(05/16 2:51 PM GEOTHERMAL INSTALLER) No Rita Landa, BRIA Note: Problem: Chronic [...] 1 Hour (09/27/2023 5:57 PM CDT) Narrative [facility] - 09/27/2023 5:57 PM CDT The images from this study are not interpreted by Radiology. ??Please refer to the physician's procedure / OR operative note. us Marcus Glass MD IMG FLUOROSCOPY PROCED URES Final Result [facility] * Stone analysis (09/27/2023 5:37 PM CDT) Stone analysis Not Reported [facility] ref Lab Source, Kid Stone Kidney [facility] Interp, Kid stone analysis See Footnote [facility] Comment:RESULT: 100% Calcium oxalate monohydrate. COMMENT See Footnote [facility] Comment: For stones containing calcium oxalate, calcium phosphate, and/or uric acid, a 24 hr urinary supersaturation test may help detect underlying risk factors for this type of stone formation and provide guidance for a stone prevention strategy. ADDITIONAL INFORMATION This test was developed and its performance characteristics determined by [facility] in a manner consistent with CLIA requirements. This test has not been cleared or approved by the U.S. Food and Drug Administration. Test Performed by: [facility] - [address] [address] Child And Adolescent Psychologist: Chris Perez M.D. Ph.D.; CLIA# [id number] Stone 09/27/2023 5:37 PM CDT 09/28/2023 8:23 AM CDT Gricelda Atkins MD LAB URINE ORDERABLES Final Result [facility] [address] Department [place] [address] [facility] * (ABNORMAL) Urinalysis, microscopic only (09/27/2023 2:29 PM CDT) WBC, ur 0-5 0 - 5 /HPF RBC, ur 3-5(A) 0 - 2 /HPF [facility] Epithelial cells, squamous, ur 1-5 0 - 5 /HPF [facility] Mucous, ur Present(A) [facility] Hyaline casts, ur 1-5 0 - 10 /LPF [facility] Culture Reflex Comment Reflex conditions for urine culture (WBC >10) not met. [facility] Urine 09/27/2023 2:29 PM CDT 09/27/2023 2:39 PM CDT us Heber Arroyo MD LAB URINE ORDERABLES Final Result [facility] [address] Department [place] [address] * (ABNORMAL) Drugs of Abuse Screen, Urine [...] 2022. Barbiturates, ur Not Detected CutOff 200ng/mL [facility] Comment: Interpretive Data - Barbiturates: ??Samples containing greater than 200 ng/mL secobarbital or other cross-reacting barbiturate compounds are reported as positive. ??False positive and false negative results are possible. Confirmatory testing required for definitive results. Current Interpretive Data was last reviewed 2022. Benzodiazepines, ur Not Detected CutOff 100ng/mL [facility] Comment: Interpretive Data - Benzodiazepines: ??Samples containing greater than 100 ng/mL nordiazepam or other cross-reacting compounds are reported as positive. False positive and false negative results are possible. Confirmatory testing required for definitive results. Current Interpretive Data was last reviewed 2022. Cannabinoids, ur Screen Positive, presumptive (A) CutOff 50 ng/mL [facility] Comment: Interpretive Data - Cannabinoids: ??Samples containing greater than 50 ng/mL delta-9 THC -COOH or other cross-reacting compounds are reported as positive. ??False positive and false negative results are possible. ??Confirmatory testing required for definitive results. Current Interpretive Data was last reviewed 2022. Cocaine, ur Not Detected CutOff 150ng/mL [facility] Comment: Interpretive Data - Cocaine: ??Samples containing greater than 150 ng/mL benzoylecgonine or other cross-reacting compounds are reported as positive. False positive and false negative results are possible. Confirmatory testing required for definitive results. Current Interpretive Data was last reviewed 2022. Fentanyl, Ur Not Detected CutOff 5 ng/mL [facility] Comment: Interpretive Data - Fentanyl: ?? Samples containing greater than 5 ng/mL norfentanyl, fentanyl, or other cross-reacting fentanyl compounds are reported as positive. False positive and false negative results are possible. Confirmatory testing required for definitive results. Current Interpretive Data was last reviewed 2023. Methadone, ur Not Detected CutOff 300ng/mL [facility] Comment: Interpretive Data - Methadone: ??Samples containing greater than 300 ng/mL d,l-methadone or other cross-reacting compounds are reported as positive. ??False positive and false negative results are possible. Confirmatory testing required for definitive results. Current Interpretive Data was last reviewed 2022. Opiates, ur Screen Positive, presumptive (A) CutOff 300ng/mL [facility] Comment: Interpretive Data - Opiates: ??Samples containing greater than 300 ng/mL morphine or other cross-reacting compounds are reported as positive. ??False positive and false negative results are possible. Confirmatory testing required for definitive results. Current Interpretive Data was last reviewed 2022. Oxycodone, ur Screen Positive, presumptive (A) CutOff 100ng/mL [facility] Comment: Interpretive Data - Oxycodone: ??Samples containing greater than 100 ng/mL oxycodone or other cross-reacting compounds are reported as ??positive. ??False positive and false negative results are possible. Confirmatory testing required for definitive results. Current Interpretive Data was last reviewed 2022. Phencyclidine, ur Not Detected CutOff 25 ng/mL [facility] Comment: Interpretive Data - Phencyclidine: ??Samples containing greater than 25 ng/mL phencyclidine or other cross-reacting compounds are reported as positive. ??False positive and false negative results are possible. Confirmatory testing required for definitive results. Current Interpretive Data was last reviewed 2022. Urine Creatinine 173 mg/dL [facility] Comment: Interpretive Data Urine Creatinine: < 10 mg/dL is extremely dilute = or > 10 but < 20 mg/dL is dilute = or > 20 mg/dL is normal Current Interpretive Data was last revised on 2017. Urine 09/27/2023 2:29 PM CDT 09/27/2023 2:[address] [facility] - 09/27/2023 3:12 PM CDT Drug of Abuse screening is performed by immunoassay for medical purposes only. ??This is not to be used for Pain Management purposes. Heber Arroyo MD LAB URINE ORDERABLES Final Result [facility] [address] Department [place] [address] * (ABNORMAL) Urinalysis reflex to microscopic and culture Urine (09/27/2023 2:29 PM CDT) Color, ur Yellow Yellow Clarity, ur Clear Clear [facility] Specific gravity, ur 1.024 1.003 - 1.030 [facility] pH, urine 6.0 [facility] Comment: Interpretive Data ? Urine pH is affected by diet, medications, systemic acid-base disturbances, and renal tubular function. ??pH may affect urinary stone formation. ??For example, urine pH below 6.0 may help reduce the tendency for calcium phosphate stones and pH greater than 6.0 may reduce the tendency for uric acid stone formation. Source: [facility] Current Interpretive Data was last revised on 2017 Protein, ur ql 1+(A) Negative [facility] Glucose, ur ql Negative Negative [facility] Ketones, ur Negative Negative [facility] Bilirubin, ur Negative Negative [facility] Blood, ur Negative Negative [facility] Urobilinogen, ur <2.0 <2.0 mg/dL [facility] Nitrite, ur Negative Negative [facility] Leukocyte esterase, ur Negative Negative [facility] UA reflex comment Reflex to microscopic UA will be performed. [facility] Urine 09/27/2023 2:29 PM CDT 09/27/2023 2:40 PM CDT Heber Arroyo MD LAB MICROBIOLOGY - GENERAL ORDERABLES Final Result [facility] [address] Department [place] [address] * CT Abdomen Pelvis WO Contrast (09/27/2023 [...] on this noncontrast exam. Electronically signed by: DO Yulisa Herring 09/27/2023 2:15 PM CDT EXAM: ??CT ABDOMEN [...] CTA chest abdomen pelvis dated 09/26/2023 from [facility], CT dated 08/23/2023 from [facility] FINDINGS: ?? Mild bibasilar atelectasis. Partially visualized aortic stent graft extending from the superior [id number]-el-gqbm in the thoracic aorta to the distal [...] CTA chest abdomen pelvis dated 09/26/2023 from [facility], CT dated 08/23/2023 from [facility] FINDINGS: Mild bibasilar atelectasis. Partially visualized aortic stent graft extending from the superior bxlzh-hd-yzjn in the thoracic aorta to the distal [...] exam. Electronically signed by: Christy Dominguez DO us Heber Arroyo MD IMG CT PROCEDURES Final Re sult * (ABNORMAL) eGFR (09/27/2023 12:16 PM CDT) [facility] Signature eGFR 42(L) >=60 mL/min/1. 73 m2 Comment: [...] Arroyo MD LAB BLOOD ORDERABLES Final Result [facility] [address] Department [place] [address] * (ABNORMAL) Differential, auto (09/27/2023 12:16 PM CDT) Neutrophil abs 9.2(H) 1.5 - 6.5 K/cumm Imm gran abs 0.1 0.0 - 0.1 K/cumm [facility] Lymphocyte abs 1.0 0.8 - 3.3 K/cumm [facility] Monocyte abs 1.3(H) 0.2 - 0.8 K/cumm [facility] Eosinophil abs 0.0 0.0 - 0.5 K/cumm [facility] Basophil abs 0.1 0.0 - 0.1 K/cumm [facility] Neutrophil pct 78.9 % [facility] Comment: Interpretive Data Percent cell count reference ranges are not reported, since discordance with absolute values may lead to misinterpretation of CBC data. Current Interpretive Data was last revised on 2017. Imm gran pct 0.6 % [facility] Comment: Interpretive Data Percent cell count reference ranges are not reported, since discordance with absolute values may lead to misinterpretation of CBC data. Current Interpretive Data was last revised on 2017. Lymphocyte pct 8.9 % [facility] Comment: Interpretive Data Percent cell count reference ranges are not reported, since discordance with absolute values may lead to misinterpretation of CBC data. Current Interpretive Data was last revised on 2017. Monocyte pct 10.9 % [facility] Comment: Interpretive Data Percent cell count reference ranges are not reported, since discordance with absolute values may lead to misinterpretation of CBC data. Current Interpretive Data was last revised on 2017. Eosinophil pct 0.3 % [facility] Comment: Interpretive Data Percent cell count reference ranges are not reported, since discordance with absolute values may lead to misinterpretation of CBC data. Current Interpretive Data was last revised on 2017. Basophil pct 0.4 % [facility] Comment: Interpretive Data Percent cell count reference ranges are not reported, since discordance with absolute values may lead to misinterpretation of CBC data. Current Interpretive Data was last revised on 2017. Blood 09/27/2023 12:1 6 PM CDT 09/27/2023 12:30 PM CDT us Heber Arroyo MD LAB BLOOD ORDERABLES Final Result [facility] [address] Department [place] [address] * (ABNORMAL) CBC with auto differential (09/27/2023 12:16 PM CDT) WBC 11.7(H) 3.8 - 9.9 K/cumm Hgb 11.7(L) 13.0 - 17.5 g/dL [facility] Hct 36.9(L) 38.9 - 50.3 % [facility] Plt 267 150 - 400 K/cumm [facility] MPV 9.1 9.1 - 12.[address] [facility] RBC 4.01(L) 4.30 - 5.80 M/cumm [facility] MCV 92.0 81.3 - 96.[address] [facility] MCH 29.2 27.1 - 33.[address] [facility] MCHC 31.7(L) 32.3 - 35.7 g/dL [facility] RDW CV 15.8(H) 11.1 - 14.9 % [facility] RDW SD 53.6(H) 35.7 - 48.[address] [facility] NRBC abs 0.00 0.00 - 0.01 K/cumm [facility] Blood (Blood, Venous) 09/27/2023 12:16 PM CDT 09/27/2023 12:30 PM CDT us Heber Arroyo MD LAB BLOOD ORDERABLES Final Result [facility] [address] Department [place] [address] * (ABNORMAL) Basic metabolic panel (09/27/2023 12:16 PM CDT) Sodium 139 135 - 145 mmol/L Potassium, pl 4.1 3.3 - 4.9 mmol/L [facility] Chloride 105 97 - 110 mmol/L [facility] CO2 22 22 - 32 mmol/L [facility] Anion gap 12 2 - 15 mmol/L [facility] BUN 25 6 - 25 mg/dL [facility] Creatinine 2.12(H) 0.80 - 1.30 mg/dL [facility] Glucose 96 70 - 199 mg/dL [facility] Comment: Interpretive Data Fasting glucose >/= [...] Calcium 9.2 8.5 - 10.3 mg/dL [facility] Blood 09/27/2023 12:1 6 PM CDT 09/27/2023 12:31 PM CDT us Heber Arroyo MD LAB BLOOD ORDERABLES Final Result [facility] [address] Department [place] [address] documented in this encounter Visit Diagnoses Diagnosis Ureteral calculi- Primary Calculus of ureter Flank pain Abdominal pain, unspecified site Ureteral calculi [N20.1] Calculus of ureter Right nephrolithiasis ANGI (acute kidney injury) (HCC) documented in this encounter Admitting Diagnoses Diagnosis Ureteral [...] Given 09/27/2023 1:08 PM CDT 1 mg ketorolac (TORADOL) 15 mg/mL injection 15 mg [...] hours., Indications: Prevention of Post-Operative Nausea and VomitingIndications:Prevention of Post-Operative Nausea and Vomiting Given 09/27/2023 [...] Given 09/27/2023 8:28 PM CDT 10 mL tamsulosin (FLOMAX) extended release capsule 0.4 mg [...] by mouth 3 (three) times a day 4 HYDROcodone-acet aminophen (NORCO) 5-325 mg per tabletIndication [...] 1615 1551 (New Bag - Prov ider: Tiffaine Waterman RN)1647 (Rate/Dose Verify - Provider: Sheryl Hebert CRNA) PRN Medication Order 09/25/2023 09/26/2023 09/27/2023 acetaminophen (TYLENOL) tablet 650 mg 650 mg, oral, Every 4 hours PRN, 1st line for pain, fever, fever greater than 38.3 C, Starting on Tue09/27/23 at 2007, Indications: Fever, Pain Carrier Fluids for Secondary [...] 1231 (Given - Provid er: Chung Rivera RN)1539 (JUL Hold - Provider: Automatic Transfer Provider [...] - Reason: Other - Comment: see 1847 documentation)1899 (Given - Provider: Kaycee Ocampo RN)1911 (Given - Provider: Kaycee Ocampo RN) HYDROmorphone [...] q 30 minutes as needed, Starting on e 09/27/23 at 1304, For 3 doses 1308 (Given - Provid er: Chung Rivera, BRIA)1515 (Given - Provider: Jill Starr RN)1539 (MAR Hold - Provider: Automatic Transfer Provider - Reason: Patient not available)2006 ([facility] Unhold - Provider: Automatic Transfer Provider)2026 (Given - Provider: Brian Suero RN - Comment: pt request) ioversoL (OPTIRAY 320) injection (CANCELED) As needed, Starting on e 09/27/23 at 1735, Intra-Op 1735 (Given - Provid er: Marcus Glass MD) morphine injection 6 mg 6 mg, intravenous, Administer over 4 Minutes, Every 1 hour PRN, pain, Starting on e 09/27/23 at 1156, For 6 doses, Indications: Pain 1212 (Given - Provid er: Catrachito Jordan RN)1225 (Given - Provider: Chung Rivera, BRIA - Comment: ok'ed by provider)1539 ([facility] Hold - Provider: Automatic Transfer Provider - Reason: Patient not available)2006 ([facility] Unhold - Provider: Automatic Transfer Provider) ondansetron (ZOFRAN) injection 4 mg(Linked Group 1) 4 mg, intravenous, Administer over 2 Minutes, Every 6 hours PRN, nausea, vomiting, if not tolerating PO, Starting on Tue09/27/23 at 2006, Indications: Nausea and Vomiting ondansetron (ZOFRAN) injection 4 mg (COMPLETED) 4 mg, intravenous, Administer over 2 Minutes, Once as needed, nausea, vomiting, Starting on e 09/27/23 at 1747, For 1 dose, Phase I, Proceed to haloperidol if more than 8 mg of ondansetron have been given within the last 6 hours., Indications: Prevention of Post-Operative Nausea and Vomiting 184 (Given - Provid er: Kaycee Ocampo RN) [...] or increasing after 1st dose., Indications: Pain 1817 (Given - Provid er: Kaycee Ocampo RN) [...] Glass MD - Comment: 3,000 prn for [id number] prn on sterile field) Linked Groups Order [...] (0.08 3 %) nebulizer solution 2.5 mg 09/27/2023 Carrier Fluids for Secondary Infusion - 0.9% Sodium Chloride 09/27/2023 dextrose (D10W) 10% bolus 250 mL 09/27/19 dextrose (GLUTOSE) 40 % gel 15 g 09/27/19 diphenhydrAMINE (BENADRYL) 5 0 mg/mL injection 12.5 mg 09/27/2023 fentaNYL (SUBLIMAZE) preserv ative free injection 25 mcg 09/27/2023 fentaNYL (SUBLIMAZE) preserv ative free injection 50 mcg 09/27/2023 glucagon injection 1 mg 09/27/2023 insulin lispro (HumaLOG, ADM ELOG) 100 unit/mL injection 0-5 Units 09/27/2023 ioversoL (OPTIRAY 320) injection 09/27/19 labetaloL (NORMODYNE,TRANDAT E) injection 5 mg 09/27/2023 lidocaine (PF) (XYLOCAINE) 1 0 mg/mL (1 %) preservative free injection 2-10 mg 09/27/2023 meperidine (DEMEROL) preserv ative free injection 12.5 mg 09/27/2023 naloxone (NARCAN) 0.4 mg/mL injection 0.04-0.4 mg 09/27/2023 ondansetron (ZOFRAN) injection 4 mg 09/26 ondansetron ODT (ZOFRAN-ODT) disintegrating tablet 4 mg 09/27/2023 oxyBUTYnin (DITROPAN) tablet 5 mg 1 024 racepinephrine (ASTHMANEFRIN ) 2.25 % nebulizer solution 0.5 mL 09/27/2023 sodium chloride 0.9% flush 0.5-20 mL 2 08/30 sodium chloride 0.9% irrigation 1 Nursing Count Last Ordered Date First Orde [...] 09/27/2023 documented in this encounter Care Teams Backwinder Relationship Specialty Start Date End Date Carl Strickland MD [address] [facility] [address] [place] [address] PCP - General Internal Medicine 06/06/23 Leo Manzano MD [address] [facility] [address] [place] [address] Surgeon Vascular Surgery 05/16/23 documented as of this encounter
--- OUTSIDE RECORDS SUMMARY | 2024-05-30 05:36 | XMS_ITS | Encounter Summary ---
Author Organization [facility] Address [address] [place] [address] Phone Care Team Providers Care Room Attendant Name Role Phone Leo Manzano MD Unavailable [phone] Carl Strickland MD Primary Care Provider Reason for Referral * Diagnostic Imaging (Routine) - Pending Review Specialty Diagnoses / Procedures Referred By Fernando alan Referred To Contact Diagnoses Ureteral stone Procedures US Retroperitoneal Complete Stacia Su MD [address] [facility] [address] [place] [address] Phone: tel: fax: [address] [phone] Referral ID Status Reason Start Date Expiration Date V isits Requested Visits Authorized [id number] Pending Review 07/14/2023 08/12/2024 1 1 [employer]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 SUPERVISOR Reason for Visit * Reason Comments Procedure Cysto * Consultation (Routine) - Authorized Specialty Diagnoses / Procedures Referred By Fernando alan Referred To Contact Urology Diagnoses Encounter for removal of ureteral stent Carl Strickland MD [address] [facility] [address] [place] [address] Phone: tel: fax: [facility] (All Locations) Referral ID Status Reason Start Date Expiration Date Visits Requested Visits Authorized [id number] Authorized Specialty Services Required 07/08/2023 08/06/2024 12 12 Encounter Details Date Type Department Care Team (Late st Contact Info) Description 07/14/2023 10:30 AM CORNCO[employer] PIPE SUPERVISOR Office Visit [facility]) - [facility] Urology [address] [facility] [address] [place] [address] [place] [address] Ureteral stone (Primary Dx); Encounter for removal of ureteral stent Social History Tobacco Use Types Packs/Day Years Used Date Smoking Tobacco: Never Smokeless Tobacco: Never Alcohol Use Standard Drinks/Week Comments Not Currently 0 (1 standard drink = 0.6 oz pur e alcohol) [facility] Utilities Answer Date Recorded In the past 12 months has [employer], gas, oil, or water company threatened to [...] How often do you attend chur or episcopal services? More than 4 times per year [...] or slept in a longterm (including now)? No 07/06/2023 Personal Safety Answer Date Recorded Getting School Help Needed Denies 05/09 Sex and Gender Information Value Date Recorded Sex Assigned at Not on file Legal Sex Male 3:42 AM CORN[employer] PIPE SUPERVISOR Gender Identity Not on file Sexual Orientation Straight 06/12/2023 11 :43 PM [employer] PIPE SUPERVISOR documented as of this encounter Progress Notes * Gila Whitten LPN - 07/14/2023 10:30 AM CST Cysto Prep: Gu Indication: Stent removal Explained cystoscopy procedure to patient with understanding verbalized. Patient was given Keflex 500 mg (Cephalexin) 30 minutes prior to procedure. Pt was prepped with betadine. Lidocaine 4% instilled into the urethral area. Hr Administrative Assistant declined. [facility] Supervising provider: Marcus Whitten LPN COB PIPE SUPERVISOR * Stacia Su MD - 07/14/2023 10:30 AM CST CYSTOSCOPY PROCEDURE NOTE: Indication for Cystoscopy: 33 y.o. male with left ureteral and renal stones s/p URS/LL/stent placement. Postoperatively, he had significant bladder spasms related to the stent requiring multimodal therapy. He is returning for stent removal. After we discussed all risks/benefits/alternatives to the procedure, and the patient agreed to proceed. The flexible cystoscope was introduced into the urethra and advanced into the bladder. URETHRA: normal without lesions. PROSTATE: normal TRIGONE & UOs: normal anatomy with efflux of clear urine. BLADDER MUCOSA: normal without neoplasms or other lesions. DETRUSOR: normal capacity, without flaccidity, without excessive compliance, without trabeculation or diverticula, without uninhibited bladder contractions on fillings. ADDITIONAL PROCEDURES: stent located, grasped with shark-tooth forceps and removed. The stent is intact. ASSESSMENT: Left nephrolithiasis s/p URS/LL/stent. He is now s/p ureteral stent removal. Doing well today. PLAN: 2 months with RBUS Cosigned by Marcus Glass MD at 07/14/2023 11:03 AM CORNCOB PIPE SUPERVISOR COB PIPE SUPERVISOR COB PIPE SUPERVISOR Associated attestation - Marcus Glass MD - 07/14/2023 11:03 AM CORNCOB PIPE SUPERVISOR I was present for the entire procedure. documented in this encounter Plan of Treatment Scheduled Orders Name Type Priority Associated Diagnoses Order Schedule US Retroperitoneal Complete Imaging Schedule Routine, Read Routine (OP Routine) Ureteral stone Expected: 09/12/2023, Expires: 07/14/2024 documented as of this encounter Visit Diagnoses Diagnosis Ureteral stone- Primary Calculus of ureter Encounter for removal of ureteral stent documented in this encounter Orders Outpatient Referral Count Last Ordered Date Fir st Ordered Date AMB REFERRAL TO UROLOGY 1 07/14/2023 documented in this encounter Care Teams Room Attendant Relationship Specialty Start Date End Date Carl Strickland MD [address] [facility] [address] [place] [address] PCP - General Internal Medicine 06/06/23 Leo Manzano MD [address] [facility] [address] [place] [address] Surgeon Vascular Surgery 05/16/23 documented as of this encounter
--- OUTSIDE RECORDS SUMMARY | 2024-05-30 05:36 | XMS_ITS | Encounter Summary ---
Author Organization [facility] Healthcare Address [address] [place] [address] Care Team Providers Care Emergency Communications Operator Name Role Phone Leo Manzano MD Unavailable [phone] Carl Strickland MD Primary Care Provider Reason for Visit * Reason Comments Abdominal Pain Back Pain Black or Bloody Stool Vomiting * Auth/Cert (Routine) Specialty Diagnoses / Procedures Referred By Contac t Referred To Contact Diagnoses 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HCC) Procedures na Referral ID Status Reason Start Date Expiration Date Visits Re quested Visits Authorized [id number] 1 1 Encounter Details Date Type Department Care Team (Late st Contact Info) Description 09/05/2023 11:58 PM CDT - 09/09/2023 3:09 PM CDT Hospital Encounter [facility] [address] [place] [address] Dalton Jones MD [phone] [place] [address] Ronald Dimas MD [address] [place] [address] Rosey Posada MD [address] [place] [address] Karine Louis MD [phone] [place] [address] 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HCC) (Primary Dx) Discharge Disposition: Discharge to home or self care Social History Tobacco Use Types Packs/Day Years Used Date Smoking Tobacco: Never Smokeless Tobacco: Never Alcohol Use Standard Drinks/Week Comments Not Currently 0 (1 standard drink = 0.6 oz pur e alcohol) [facility] Utilities Answer Date Recorded In the past 12 months has [employer] electric, gas, oil, or water company threatened [...] often do you attend chur ch or christianity services? More than 4 times per year 07/06/2023 Do you belong to any clubs o r organizations such as congregation groups, unions, fraternal or athletic groups, or [...] slept in a nursing home (including now)? No 07/06/2023 Personal Safety Answer Date Recorded Have you ever been in or are you currently in a harmful physical or emotional relationship or is someone making you feel afraid or unsafe? Denies 09/05/2023 Sex and Gender Information Value Date Recorded Sex Assigned at Not on file Legal Sex Male 3:42 AM [employer] Gender Identity Not on file Sexual Orientation Straight 06/12/2023 11 :43 PM [employer] EX[employer] documented as of this encounter Last Filed Vital Signs Vital Sign Reading Time Taken Comments Blood Pressure 136/78 09/09/2023 7:42 AM CDT Pulse 82 09/09/2023 8:30 AM CDT Temperature 36.4 ??C (97.5 ??F) 09/09/2023 7:42 AM CD T Respiratory Rate 18 09/09/2023 7:42 AM CDT Oxygen Saturation 95% 09/09/2023 7:42 AM CDT Inhaled Oxygen Concentration - - Weight 93 kg (205 lb) 09/07/2023 5:40 PM CDT Height 175.3 cm (5' 9 ) 09/07/2023 5:40 PM CDT 5 '9 Body Mass Index 30.27 09/07/2023 5:40 PM CDT documented in this encounter Discharge Summaries * Otoniel Echols MD - 09/09/2023 10:00 AM CDT Inpatient Discharge Summary BRIEF OVERVIEW Admitting Provider: Dalton Jones MD Discharge Provider: No att. providers found Primary Care Physician at Discharge: Carl Strickland MD [phone] Admission Date: 09/05/2023 Discharge Date: 09/09/2023 Admission Location: [facility] Problems/Diagnoses: Principal Problem: 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HCC) Resolved Problems: No resolved hospital problems. DETAILS OF HOSPITAL STAY Presenting Problem/History of Present Illness: Eriberto Chau is a 33 y.o. 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 The patient initially presented with an acute on chronic exacerbation of his back pain. He described a pressure pain over the entirety of his abdomen (10/10 -worst in the LLQ) and back pain (10/10). Made worse with any movement. The patient states he is usually living between 7-10/10 but he had vomited one time the night before presentation which made him decide to go to the ED. Also noted one episode of stool with streaked red blood in the days prior to admission. Initial vitals. T 36.8 ??C, Pulse: 107, Resp: 18, BP: 169/120 , SpO2: 96 %. Patient was initially started on esmolol drip due to concern for progression of thoracic abdominal aortic. CT imagining then showed stable thoracic aorta from prior. Pain refractory to IV dilaudid 1 mg 3x. Patient admitted to medicine for presumed diagnosis of acute on chronic back pain- refractory to IV pain medications. Hospital Course: #Abdominal/back pain Patient complaining of a diffuse abdominal and back pain, which is non- centralized but somewhat worse in the LLQ/flank area. Made worse with any movement. Only made better by opiate pain medications.Pt was placed on APAP 650 q6, Flexeril 10mg TID PRN, Lidocaine patch, amitriptyline 25mg nightly, Ga bapentin 300mg TID, and oxycodone 5mg q4 PRN. The patients abdominal pain gradually improved. Seemed to improve with the addition on bentyl and after the patient has a bowel movement on day 3 of admission. His back pain was persistent. Will discharge with his inpatient multimodal pain regiment, except for the oxycodone. Will elect not to prescribe opiates at discharge. Ultimately my ddx for the patient's ongoing pain includes pain as a direct result of his prior surgical interventions, underlying genetic connective tissue disease, undiagnosed psychiatric disorder (consider PTSD, MDD, cocaine use), IBS, and functional pain. Pain regiment at discharge -APAP 1 g Q6H -Flexaril 10mg TID PRN -Lidocaine patch -amitriptyline 25 mg nightly Seroquel 50 mg nightly -gabapentin 600 mg TID -Bentyl PRN #History of thoracic aortic dissection Broad workup to look at the etiology of the patients aortic dissection which occurred 04/2023. And to explore if an underlying etiology might explain his hx of Thoracic aortic dissection and chronic pain. CBC CMP, lactate, trops all wnl CT AP- no progression of prior thoracic aortic dissection -There are some calcified mediastinal lymph noted and evidence of prior granulomatous disease shownin the spleen. SI joint x-ray - no inflammation of the SI joint MRI Sacrum coccyx - Normal MRI without evidence of sacroiliitis. ESR 43 (slightly elevated), CRP, 7.2 (wnl) ANCA negative RPR - non-reactive HLA-B27 - negative Cocci antigen: negative SPEP/UPEP - slight elevation in protein but no evidence of malignancy Pending: T-spot Fungal serologies MRI LS spine #HTN Goal <120/80. Low BP goal due to the history of thoracic aortic aneurism. Patient was started onamlodipine 10mg daily, hydral 50mg TID, and carvedilol 25mg BID. Due to continued high BP, pt medications were titrated and changed. -continue amlodipine 10mg daily, hydralazine 50mg TID, -Switched carvedilol to labetalol 400 mg BID for better BP control #Vitamin D Deficiency Vitamin D level of 9 this admission. Ergocholcalciferol 50k units weekly was started while inpatient. -continue Ergocholcalciferol 50K units weekly for 8 weeks total (7 more weeks). #Iron deficiency I will hold the iron at discharge as this could have been contributing to constipation #Constipation Last bowel movement was same day as admission. Pt was placed on senna-docusate 2 tablets BID, miralax 17g daily. First BM on day 3 of admission which seemed to improve abdominal pain. Active Issues Requiring Follow-up: -Continue workup for etiology of prior thoracic aorta dissection -Continue to titrate pain regiment -follow up with pain service next month -Follow up with PCP for blood pressure control -PCP to follow up regarding the history of blood streaked stools -Recommend follow up with psychiatry -Patient thought Seroquel was beneficial for him -Follow up pending result from this admission see problem History of thoracic aortic dissection above Test Results Pending at Discharge: Pending Labs Order Current Status Blastomyces antibody, EIA, serum Blood In process Immunofixation, urine In process Lipase In process Protein electrophoresis, urine 24 hour with immunofixation In process T-SPOT.TB Blood In process Blood culture Blood Preliminary result Blood culture Blood Preliminary result Protein electrophoresis, urine, 24 hour Preliminary result Discharge Details Physical Exam at Discharge: Discharge Condition: fair Pulse: 82 Resp: 18 BP: 136/78 Temp: 36.4 ??C (97.5 ??F) Weight: 93 kg (205 lb) Pertinent Exam Findings at Discharge: General: NAD. CV: RRR, S1, S2, no MRG Lung: CTAB. Normal respiratory rate and effort on RA. Abdomen: soft, non-tender to light palpation. Tender to deep palpation in al quadrants. Skin: there is patchy depigmentation of the skin of the hands. Neuro: A&Ox3, strength and sensation grossly intact Extremity: well perfused, DP pulses intact. No lower extremity edema. Discharge Disposition: Discharge to home or self care Discharge to home Code Status at Discharge: Full code Discharge Instructions: Activity Instructions Discharge activity: Resume normal activity Diet Instructions Adult Discharge Diet Diet Type: Return to previous diet Discharge Medications: Current Medications TAKE these medications acetaminophen 500 mg capsule Take 2 capsules (1,000 mg total) by mouth every 6 (six) hours Notes to patient: For pain, fevers Side Effects: itching, constipation, nausea, vomiting *Do not exceed more than 4,000 mg of Tylenol in a 24-hour period. Check other medications for acetaminophen* amitriptyline 25 mg tablet Take 1 tablet (25 mg total) by mouth nightly Commonly known as: ELAVIL amLODIPine 10 mg tablet Take 1 tablet (10 mg total) by mouth daily Commonly known as: NORVASC Notes to patient: Blood pressure control *Check blood pressure before taking* Side Effects: edema/swelling, fatigue, somnolence, nausea aspirin 81 mg chewable tablet Take 1 tablet (81 mg total) by mouth daily Notes to patient: Heart health Side Effects: stomach ulcer, bleeding, ringing in ears capsaicin 0.025 % cream Apply topically 2 (two) times a day Commonly known as: ZOSTRIX Notes to patient: Pain control Side Effects: application site redness/pain/rash/itching, nausea cyclobenzaprine 10 mg tablet Take 1 tablet (10 mg total) by mouth 3 (three) times a day as needed for muscle spasms Commonly known as: FLEXERIL dicyclomine 20 mg tablet Take 1 tablet (20 mg total) by mouth every 6 (six) hours as needed (For abdominal pain) Commonly known as: BENTYL ergocalciferol 50,000 unit capsule Take 1 capsule (50,000 Units total) by mouth once a week for 7 doses Commonly known as: VITAMIN D Start taking on: September 14, 2023 gabapentin 600 mg tablet Take 1 tablet (600 mg total) by mouth 3 (three) times a day Commonly known as: NEURONTIN hydrALAZINE 50 mg tablet Take 1 tablet (50 mg total) by mouth 3 (three) times a day Commonly known as: APRESOLINE hydrocortisone 2.5 % rectal cream Insert into the rectum 2 (two) times a day as needed for hemorrhoids Commonly known as: ANUSOL-HC labetaloL 200 mg tablet Take 2 tablets (400 mg total) by mouth 2 (two) times a day Commonly known as: NORMODYNE,TRANDATE Notes to patient: For heart/high blood pressure Side effects: dizziness, slow heartbeat, numbness/tingling *Check your blood pressure before taking* lidocaine 4 % adhesive patch,medicated Place 2 patches on the skin daily Commonly known as: ASPERCREME Start taking on: September 10, 2023 Notes to patient: Pain control *12 hours on, 12 hours off, repeat * Side Effects: skin irritation/redness/itching ondansetron ODT 4 mg disintegrating tablet Take 1 tablet (4 mg total) by mouth every 8 (eight) hours as needed for nausea or vomiting Commonly known as: ZOFRAN-ODT QUEtiapine 50 mg tablet Take 1 tablet (50 mg total) by mouth nightly Commonly known as: SEROquel senna-docusate 8.6-50 mg Take 2 tablets by mouth 2 (two) times a day To prevent constipation Commonly known as: PERICOLACE Outpatient Follow-Up: Future Appointments Date Time Provider Department Center 09/27/2023 9:30 AM Amanda Macias MD CAM PAIN [facility] CAM 10/07/2023 9:00 AM [facility] [id number] BJN US [facility] Main IMG 10/07/2023 10:00 AM Marcus Gamboa MD [facility] 11C [facility] 10/14/2023 10:20 AM Marcus Gamboa MD [facility] 11C [place] 11/23/2023 3:30 PM Joaquín Abarca MD CAR CAM 8B Cardiology 02/15/2024 12:[address] [facility] [id number] CT [id number] 02/15/2024 1:00 PM Leo Manzano MD [facility] [id number] [place] Cosigned by Karnie Louis MD at 09/09/2023 4:21 PM CDT Associated attestation - Karine Louis MD - 09/09/2023 4:21 PM CDT I saw and examined the patient on 09/09/2023. I spent >30 minutes on discharge planning activities. Time spent was on Counselling with patient/family, discharge exam, and parent/patient education. documented in this encounter Discharge Instructions * Attachments The following attachments cannot be sent through Care Everywhere. * Chronic Pain (Discharge Care) (Albanian) documented in this encounter Medications at Time of Discharge amLODIPine (NORVASC) 10 mg tablet Take 1 tablet (10 mg total) by mouth daily 30 tablet 11 4 06/25/19 25 aspirin 81 mg chewable tablet Take 1 tablet (81 mg total) by mouth daily 30 tablet 11 3 dicyclomine (BENTYL) 20 mg tablet Take 1 [...] as needed for hemorrhoids 30 g 4 ondansetron ODT (ZOFRAN-ODT) 4 mg disintegrating tablet Take 1 tablet (4 mg total) by mouth every 8 (eight) hours as needed for nausea or vomiting 10 tablet 3 senna-docusate (PERICOLACE) 8.6-50 mg Take 2 tablets by mouth 2 (two) times a day To prevent constipation 40 tablet 3 acetaminophen 500 mg capsule Take 2 capsules (1,000 mg total) by mouth every 6 (six) hours 30 tablet 1 4 09/27/19 24 amitriptyline (ELAVIL) 25 mg tablet Take 1 tablet (25 mg total) by mouth nightly 30 tablet 1 4 05/29/20 24 capsaicin (ZOSTRIX) 0.025 % cream Apply topically 2 (two) times a day 60 g 4 09/27/19 24 carvediloL (COREG) 25 mg tablet Take 1 tablet (25 mg total) by mouth 4 09/27/19 24 cyclobenzaprine (FLEXERIL) 10 mg tablet Take 1 tablet (10 mg total) by mouth 3 (three) times a day as needed for muscle spasms 90 tablet 4 09/27/19 24 gabapentin (NEURONTIN) 600 mg tablet Take 1 tablet (600 mg total) by mouth 3 (three) times a day 90 tablet 4 09/27/19 24 labetaloL (NORMODYNE,TRANDATE ) 200 mg tablet Take 2 tablets (400 mg total) by mouth 2 (two) times a day 120 tablet 1 4 11/08/19 24 lidocaine (ASPERCREME) 4 % adhesive patch,medicated Place 2 patches on the skin daily 30 patch 1 4 09/27/19 24 QUEtiapine (SEROquel) 50 mg tablet Take 1 tablet (50 mg total) by mouth nightly 30 tablet 1 4 05/29/20 24 documented as of this encounter Ordered Prescriptions Prescription Sig Dispense Quantity Refills Last Filled Start Date End Date hydrocortisone (ANUSOL-HC) 2.5 % rectal cream Insert into the rectum 2 (two) times a day as needed for hemorrhoids 30 g 09/09/2023 ergocalciferol (VITAMIN D) 50,000 unit capsule Take 1 capsule (50,000 Units total) by mouth once a week for 7 doses 7 capsule 09/14/2023 dicyclomine (BENTYL) 20 mg tablet Take 1 tablet (20 mg total) by mouth every 6 (six) hours as needed (For abdominal pain) 120 tablet 09/09/2023 5 amitriptyline (ELAVIL) 25 mg tablet Take 1 tablet (25 mg total) by mouth nightly 30 tablet 1 09/09/2023 4 QUEtiapine (SEROquel) 50 mg tablet Take 1 tablet (50 mg total) by mouth nightly 30 tablet 1 09/09/2023 4 lidocaine (ASPERCREME) 4 % adhesive patch,medicated Place 2 patches on the skin daily 30 patch 1 09/10/2023 4 labetaloL (NORMODYNE,TRANDAT E) 200 mg tablet Take 2 tablets (400 mg total) by mouth 2 (two) times a day 120 tablet 1 09/09/2023 4 acetaminophen 500 mg capsule Take 2 capsules (1,000 mg total) by mouth every 6 (six) hours 30 tablet 1 09/09/2023 4 gabapentin (NEURONTIN) 600 mg tablet Take 1 tablet (600 mg total) by mouth 3 (three) times a day 90 tablet 11 09/09/2023 4 documented in this encounter Discharge Disposition Disposition Code Departure Means Destination Comment s Discharge to home or self care documented in this encounter Progress Notes * Otoniel Echols MD - 09/09/2023 3:09 PM CDT Medicine Firm Daily Progress Subjective Identifying Information: Eriberto Chau is a 33 y.o. 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 Interval History: -No acute events overnight -Abdominal pain improved this AM -Patient discharged today Scheduled Medications: acetaminophen, 1,000 mg, oral, Q6H amitriptyline, 25 mg, oral, Nightly amLODIPine, 10 mg, oral, Daily aspirin, 81 mg, oral, Daily enoxaparin, 40 mg, subcutaneous, Daily-2100 ergocalciferol, 50,000 Units, oral, Weekly gabapentin, 600 mg, oral, TID hydrALAZINE, 50 mg, oral, TID labetaloL, 400 mg, oral, BID lidocaine, 2 patch, transdermal, Daily polyethylene glycol, 17 g, oral, Daily QUEtiapine, 50 mg, oral, Nightly senna-docusate, 2 tablet, oral, Nightly sodium chloride 0.9%, 0.5-20 mL, intra-catheter, Q8H SUSAN sodium chloride 0.9%, 0.5-20 mL, intra-catheter, Q8H SUSAN tamsulosin, 0.4 mg, oral, Daily with dinner Continuous Medications: PRN Medications: sodium chloride 0.9% Saline lock IV AND sodium chloride 0.9% AND sodium chloride 0.9% AND sodium chloride 0.9% cyclobenzaprine dicyclomine hydrocortisone oxyCODONE sodium chloride 0.9% Objective Vitals: 24hr Min/Max: Temp Min: 36.3 ??C (97.3 ??F) Max: 36.6 ??C (97.9 ??F) Pulse Min: 71 Max: 84 BP Min: 116/75 Max: 136/78 Resp Min: 18 Max: 18 SpO2 Min: 95 % Max: 96 % Most Recent : Vitals: 09/09/23 0830 BP: Pulse: 82 Resp: Temp: SpO2: I/O last 2 completed shifts: In: 200 [P.O.:200] Out: 550 [Urine:550] I/O this shift: In: 320 [P.O.:320] Out: 300 [Urine:300] Physical Exam: General: NAD. HEENT: No scleral icterus or injection. PERRL, MMM Neck: supple without lymphadenopathy CV: RRR, S1, S2, no MRG Lung: CTAB. Normal respiratory rate and effort on RA. Abdomen: soft, nontender to light palpation. Tender to deep palpation. Skin: there is patchy depigmentation of the skin of the hands. Neuro: A&Ox3, strength and sensation grossly intact Extremity: well perfused, DP pulses intact. No lower extremity edema. Labs Recent Labs Lab Units 09/08/[id number]/06/[id number]/06/23 0008 WBC K/cumm 7.0 9.2 9.5 12.3* HEMOGLOBIN g/dL 12.2* 12.8* 13.3 15.0 HEMATOCRIT % 37.7* 37.7* 40.5 45.7 PLATELETS K/cumm 283 277 303 337 NEUTROS PCT % -- -- -- 83.1 LYMPHS PCT % -- -- -- 9.8 MONOS PCT % -- -- -- 5.8 EOS PCT % -- -- -- 0.2 Recent Labs Lab Units 09/08/23 [id number]/07/23224209/06/23 2259 09/06/23 1115 09/06/23 0008 SODIUM mmol/L 137 136 136 < > 135 POTASSIUM PLASMA mmol/L 3.6 3.7 3.7 < > 4.5 CHLORIDE mmol/L 101 104 101 < > 98 CO2 mmol/L 25 22 24 < > 20* ANIONGAP mmol/L 11 10 11 < > 17* GLUCOSE mg/dL 114 99 101 < > 144 BUN SERUM mg/dL 26* 23 27* < > 17 CREATININE mg/dL 1.22 1.01 1.40* < > 1.16 CALCIUM mg/dL 9.3 9.5 9.9 < > 11.0* ALBUMIN g/dL -- -- -- -- 4.8 ALK PHOS Units/L -- -- -- -- 131* ALT Units/L -- -- -- -- 19 AST Units/L -- -- -- -- 23 BILIRUBIN TOTAL mg/dL -- -- -- -- 0.6 < > = values in this interval not displayed. Recent Labs Lab Units 09/06/23 0008 INR 1.08 Recent Labs Lab Units 09/06/23 0008 ALK PHOS Units/L 131* BILIRUBIN TOTAL mg/dL 0.6 TOTAL PROTEIN g/dL 10.1* ALT Units/L 19 AST Units/L 23 Recent Labs Lab Units 09/06/23 0307 LACTATE mmol/L 1.0 Recent Labs Lab Units 09/06/23 0543 WBC UR QT /HPF 0-5 RBC UR /HPF 0-2 BACTERIA URQT Trace* LEUKOCYTE ESTERASE UR Negative NITRITE UR Negative PH, URINE 6.5 GLUCOSE URQL Negative PROTEIN UR QL 1+* KETONES UR 1+* BILIRUBIN URINE Negative BLOOD UR Negative UROBILINOGEN UR mg/dL <2.0 Imaging MRI Lumbar Spine WO Contrast Narrative: EXAMINATION: Magnetic resonance imaging (MRI) of [...] Su MD MRI Sacrum Coccyx WO Contrast Narrative: EXAMINATION: MRI SACRUM COCCYX WO CONTRAST HISTORY: Low back pain and stiffness. Concern for inflammatory arthritis/sacroiliitis. FINDINGS: Comparison radiographs 09/07/2023. Multiplanar, [...] and gluteal tendons and musculature are normal. The piriformis muscles are symmetric. The sciatic nerves are [...] it. Electronically signed by: Renard Jackson M.D. Assessment/Plan Eriberto Chau is a 33 y.o. 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 He is admitted for acute on chronic abdominal/back pain refractory to IV pain medications in the ED. #Acute on chronic back pain. #Acute on chronic abdominal pain Patient has been dealing with ongoing chronic abdominal and back pain since he had a thoracic aortic aneurism repair 04/2023. Patient complaining of a diffuse abdominal and back pain, which is non-centralized but somewhat worse in the LLQ/flank area. Made worse with any movement. Only made better by opiate pain medications. On second day of admission the pain was somewhat improved abdominal pain 4/10, back pain 7/10. The pain has continued to was and wain from 7 - 10 pain. [facility] b[facility] at this time would consider functional, PTSD, and chronic pain related to his surgery as the most likely possibilities. Therefore planning to discharge the patient without opiate medications. Current pain regiment: -APAP 1 g Q6H -Flexaril 10mg TID PRN -Lidocaine patch -amitriptyline 25 mg nightly -gabapentin 600 mg TID -Oxycodone 5 mg Q4H PRN #History of thoracic aortic dissection (etiology unknown) Patient with thoracic aortic dissection in 04/2023 and repeat repair in 05/2023. The patient was hypertensive during the initially dissection (190s/120s?). The underlying etiology of the original dissection has not yet been elucidated. He does have several symptoms and signs to suggest a history of underlying systemic disease including weight loss, night sweats, dry eyes, dry mouth, urinary retention, abdominal pain, back pain, calcified mediastinal lymph nodes on CT, and stigmata of previous granulomatous disease of the spleen on CT. Ultimately a comprehensive outpatient workup will be needed, including genetic testing, but while the patient is admitted we run cursory testing. Appreciate input from rheumatology. CBC CMP, lactate, trops all wnl CT AP- no progression of prior thoracic aortic dissection -There are some calcified mediastinal lymph noted and evidence of prior granulomatous disease shownin the spleen. SI joint x-ray - no inflammation of the SI joint MRI lumbar spine- normal exam MRI Sacrum coccyx - Normal MRI without evidence of sacroiliitis. ESR 43 (slightly elevated), CRP, 7.2 (wnl) ANCA negative RPR - non-reactive HLA-B27 - negative Cocci antigen: negative SPEP/UPEP - slight elevation in protein but no evidence of malignancy Pending: T-spot Fungal serologies #HTN Goal <120/80. Low BP goal due to the history of thoracic aortic aneurism. Continue home: Amlodipine 10 mg daily Hydral 50 mg TID Labetalol 400 mg BID #Vitamin D Deficiency Vitamin D level of 9 this admission. Ergocholcalciferol 50k units weekly for 8 weeks #Constipation -Miralax -Senna-docusate Code Status: Full Code Diet: Adult Diet Regular Adult Discharge Diet DVT Prophylaxis: Lovenox Dispo: Patient discharged to home today. Otoniel Echols PGY-1 Internal Medicine Cosigned by Karine Louis MD at 09/09/2023 4:24 PM CDT Associated attestation - Karine Louis MD - 09/09/2023 4:24 PM CDT Attending Documentation I have seen and examined the patient on 09/09/2023. I agree with the findings and plan of care as documented in the resident's/fellow's note. and as discussed with the resident/fellow. Supplementary Attestation Today, I am treating the patient for severe abdominal and back pain, h/o Type B Aortic Dissection s/p repair in 04/2023 & second repair in May 2023 , HTN which is in severe exacerbation, progression, or experiencing treatment side effects as evidenced by N/A, as described in the note. Reviewed records from the following unique sources (external institutions or providers from different services): [facility] previous emergency medicine and pain medicine team notes. Evaluation of back and abdominal pain without rheumatologic or anatomic etiology identified so far.CT A/P with stability of aneurysm and previous spine MRI without clear etiology. No evidence of mesenteria ischemia or infection. Suspect functional abdominal pain vs. Post-operative pain s/p aortic dissection repair vs. IBS. Abdominal pain improved with addition of bentyl. Back pain at baseline. Pt with scheduled psychiatry appointment on 10/26/2023 so plan to d/c with Seroquel and amitriptyline to last through outpatient follow-up. Will d/c without opiates and discussed mulit-modal pain management without opiates with Mr. Chau. Karine Louis MD * Angelica Chapa OT - 09/09/2023 11:27 AM CDT Occupational Therapy 09/09/23 1100 General OT Missed Visit Reason Other (comment) (Hold OT due to pending spinal MRI) * Sheryl Portillo, PT - 09/09/2023 7:28 AM CDT Physical Therapy 09/09/23 0728 General PT Missed Visit Reason Other (comment) (hold PT pending spine MRI) * Otoniel Echols MD - 09/08/2023 3:49 PM CDT Medicine Firm Daily Progress Subjective Identifying Information: Eriberto Chau is a 33 y.o. 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 Interval History: -No acute events overnight -The patient has continued to complain of pain overnight. Similar to prior with a constant 7-10 back pain as previously described. Abdominal pain that waxes and wains between a 4/10 and a 10/10. -Broad workup for etiology of pain still all negative ROS: See significant event note Scheduled Medications: acetaminophen, 1,000 mg, oral, Q6H amitriptyline, 25 mg, oral, Nightly amLODIPine, 10 mg, oral, Daily aspirin, 81 mg, oral, Daily diazePAM, 5 mg, intravenous, Once enoxaparin, 40 mg, subcutaneous, Daily-2100 ergocalciferol, 50,000 Units, oral, Weekly gabapentin, 600 mg, oral, TID hydrALAZINE, 50 mg, oral, TID labetaloL, 400 mg, oral, BID lidocaine, 2 patch, transdermal, Daily polyethylene glycol, 17 g, oral, Daily QUEtiapine, 50 mg, oral, Nightly senna-docusate, 2 tablet, oral, Nightly sodium chloride 0.9%, 0.5-20 mL, intra-catheter, Q8H SUSAN sodium chloride 0.9%, 0.5-20 mL, intra-catheter, Q8H SUSAN tamsulosin, 0.4 mg, oral, Daily with dinner Continuous Medications: PRN Medications: sodium chloride 0.9% Saline lock IV AND sodium chloride 0.9% AND sodium chloride 0.9% AND sodium chloride 0.9% cyclobenzaprine dicyclomine oxyCODONE sodium chloride 0.9% Objective Vitals: 24hr Min/Max: Temp Min: 36.6 ??C (97.8 ??F) Max: 37.3 ??C (99.2 ??F) Pulse Min: 69 Max: 85 BP Min: 121/73 Max: 166/97 Resp Min: 16 Max: 18 SpO2 Min: 95 % Max: 98 % Most Recent : Vitals: 09/08/23 1410 BP: 148/74 Pulse: 82 Resp: 18 Temp: 36.6 ??C (97.8 ??F) SpO2: 95% I/O last 2 completed shifts: In: 570 [P.O.:570] Out: 700 [Urine:700] I/O this shift: In: 200 [P.O.:200] Out: 350 [Urine:350] Physical Exam: General: NAD. HEENT: No scleral icterus or injection. PERRL, MMM Neck: supple without lymphadenopathy CV: RRR, S1, S2, no MRG Lung: CTAB. Normal respiratory rate and effort on RA. Abdomen: soft, tender to palpation in all quadrants. Skin: there is patchy depigmentation of the skin of the hands. Neuro: A&Ox3, strength and sensation grossly intact Extremity: well perfused, DP pulses intact. No lower extremity edema. Labs Recent Labs Lab Units 09/07/23224209/06/23225809/06/23 0008 WBC K/cumm 9.2 9.5 12.3* HEMOGLOBIN g/dL 12.8* 13.3 15.0 HEMATOCRIT % 37.7* 40.5 45.7 PLATELETS K/cumm 277 303 337 NEUTROS PCT % -- -- 83.1 LYMPHS PCT % -- -- 9.8 MONOS PCT % -- -- 5.8 EOS PCT % -- -- 0.2 Recent Labs Lab Units 09/07/23224209/06/23225809/06/23 1115 09/06/23 0008 SODIUM mmol/L 136 136 136 135 POTASSIUM PLASMA mmol/L 3.7 3.7 3.9 4.5 CHLORIDE mmol/L 104 101 100 98 CO2 mmol/L 22 24 24 20* ANIONGAP mmol/L 10 11 12 17* GLUCOSE mg/dL 99 101 98 144 BUN SERUM mg/dL 23 27* 22 17 CREATININE mg/dL 1.01 1.40* 1.25 1.16 CALCIUM mg/dL 9.5 9.9 9.8 11.0* ALBUMIN g/dL -- -- -- 4.8 ALK PHOS Units/L -- -- -- 131* ALT Units/L -- -- -- 19 AST Units/L -- -- -- 23 BILIRUBIN TOTAL mg/dL -- -- -- 0.6 Recent Labs Lab Units 09/06/23 0008 INR 1.08 Recent Labs Lab Units 09/06/23 0008 ALK PHOS Units/L 131* BILIRUBIN TOTAL mg/dL 0.6 TOTAL PROTEIN g/dL 10.1* ALT Units/L 19 AST Units/L 23 Recent Labs Lab Units 09/06/23 0307 LACTATE mmol/L 1.0 Recent Labs Lab Units 09/06/23 0543 WBC UR QT /HPF 0-5 RBC UR /HPF 0-2 BACTERIA URQT Trace* LEUKOCYTE ESTERASE UR Negative NITRITE UR Negative PH, URINE 6.5 GLUCOSE URQL Negative PROTEIN UR QL 1+* KETONES UR 1+* BILIRUBIN URINE Negative BLOOD UR Negative UROBILINOGEN UR mg/dL <2.0 Imaging XR Sacroiliac Joints 3 or More Views Narrative: XR SACROILIAC JOINTS 3 OR MORE VIEWS HISTORY: Pelvic pain. FINDINGS: 3 views of the sacroiliac joints are obtained and compared with 09/06/2023. The sacroiliac joint spaces are preserved. There is no erosion or sclerosis. Hip joint spaces and pubic symphysis are normal. Alignment and soft tissues are normal. Impression: Normal radiograph of the sacroiliac joints. Electronically signed by: Renard Jackson M.D. Assessment/Plan Eriberto Chau is a 33 y.o. 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 He is admitted for acute on chronic abdominal/back pain refractory to IV pain medications in the ED. #Acute on chronic back pain. #Acute on chronic abdominal pain Patient has been dealing with ongoing chronic abdominal and back pain since he had a thoracic aortic aneurism repair 04/2023. Patient complaining of a diffuse abdominal and back pain, which is non-centralized but somewhat worse in the LLQ/flank area. Made worse with any movement. Only made better by opiate pain medications. On second day of admission the pain was somewhat improved abdominal pain 4/10, back pain 7/10. The pain has continued to was and wain from 7 - 10 pain. Some elements of the work up will be deferred toth outpatient setting, btu at this time would consider functional, PTSD, and chronic pain related to his surgery as the most likely possibilities. Therefore planning to discharge the patient without opiate medications. Broad workup to rule out acute causes -CT AP w/ contrast this admission showing stability of the aneurism from prior. -He had a spine MRI back in May -No white count/fever/hematologic or other laboratory abnormalities. -Normal lactate suggests against gut ischemia -Trops negative Current pain regiment: -APAP 1 g Q6H -Flexaril 10mg TID PRN -Lidocaine patch -amitriptyline 25 mg nightly -gabapentin 600 mg TID -Oxycodone 5 mg Q4H PRN #History of thoracic aortic dissection (etiology unknown) Patient with thoracic aortic dissection in 04/2023 and repeat repair in 05/2023. The patient was hypertensive during the initially dissection (190s/120s?). The underlying etiology of the original dissection has not yet been elucidated. He does have several symptoms and signs to suggest a history of underlying systemic disease including weight loss, night sweats, dry eyes, dry mouth, urinary retention, abdominal pain, back pain, calcified mediastinal lymph nodes on CT, and stigmata of previous granulomatous disease of the spleen on CT. Ultimately a comprehensive outpatient workup will be needed, including genetic testing, but while the patient is admitted we run cursory testing. Appreciate input from rheumatology. -UPEP, SPEP - negative -ESR, CRP - Just a slight elevation of the ESR -ANCA negative -PRP - negative -T-spot - pending Fungal serologies- pending -SI joint x-ray - No SI joint swelling -MRI lumbar sacram - pending #HTN Goal <120/80. Low BP goal due to the history of thoracic aortic aneurism. Continue home: Amlodipine 10 mg daily Hydral 50 mg TID Increase Carvedilol to 50 mg BID #Vitamin D Deficiency Vitamin D level of 9 this admission. Ergocholcalciferol 50k units weekly for 8 weeks #Constipation -Miralax -Senna-docusate Code Status: Full Code Diet: Adult Diet Regular DVT Prophylaxis: Lovenox Dispo: Otoniel Echols PGY-1 Internal Medicine Cosigned by Karine Louis MD at 09/08/2023 4:24 PM CDT Associated attestation - Karine Louis MD - 09/08/2023 4:24 PM CDT Attending Documentation I have seen and examined the patient on 09/08/2023. I agree with the findings and plan of care as documented in the resident's/fellow's note. and as discussed with the resident/fellow. Supplementary Attestation Today, I am treating the patient for severe abdominal and back pain, h/o Type B Aortic Dissection s/p repair in 04/2023 & second repair in May 2023 , HTN which is in severe exacerbation, progression, or experiencing treatment side effects as evidenced by N/A, as described in the note. Reviewed records from the following unique sources (external institutions or providers from different services): [facility] previous emergency medicine and pain medicine team notes. Evaluation of back and abdominal pain without rheumatologic or anatomic etiology identified so far.CT A/P with stability of aneurysm and previous spine MRI without clear etiology. No evidence of mesenteria ischemia or infection. Additional history obtained this AM (documented in Dr. Jonny Farris's significant event note) suspect likely functional abdominal pain, IBS, or post- operative sequela of previous surgical intervention for aortic dissection. Awaiting SI joint MRI. Plan to schedule APAP, start bentyl. Plan to downtitrate po oxycodone in anticipation of discharge. Karine Louis MD * Sheryl Portillo, PT - 09/08/2023 10:53 AM CDT Physical Therapy 09/08/23 1053 General PT Missed Visit Reason Other (comment) (hold PT pending spine MRI) * Leo Dueñas - 09/08/2023 10:25 AM CDT 09/08/23 1000 Time Spent Start Time 1000 Stop Time 1025 Time Calculation (min) 25 min Patient Spiritual Assessment Spirituality Assessed Focus of Care [employer] Affiliation Taoism Clinical Encounter Type Visited With Patient Response Type Routine visit (consult request) Routine Visit Introduction Reason for visit Support Referral From Patient Outcomes and Progress Preserve dignity and respect Achieved Demonstrating care and respect Achieved Establish rapport and connectedness Achieved Interventions Interventions Active listening;Offer emotional support [facility] Spiritual Care Note Resident Land Manageremmie Dueñas Triage: [phone] * Huy Ramires, OT - 09/08/2023 9:47 AM CDT Occupational Therapy 09/08/23 0947 General OT Missed Visit Reason Other (comment) (pending spine MRI) * Otoniel Echols MD - 09/07/2023 3:16 PM CDT Medicine Firm Daily Progress Subjective Identifying Information: Eriberto Chau is a 33 y.o. 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 Interval History: See significant event note with additional HPI / subjective details. -Otherwise patient reports his pain is improved from yesterday. Specifically the patient feels thathis abdominal pain is improved to 4/10. The abdominal pain is still worst in the LLQ. -Patients back pain is still very bad 7-8 out of 10. ROS: See significant event note Scheduled Medications: acetaminophen, 1,000 mg, oral, Q8H amitriptyline, 25 mg, oral, Nightly amLODIPine, 10 mg, oral, Daily aspirin, 81 mg, oral, Daily carvediloL, 50 mg, oral, BID with meals (bkfst, dinner) enoxaparin, 40 mg, subcutaneous, Daily-2100 ergocalciferol, 50,000 Units, oral, Weekly gabapentin, 300 mg, oral, TID hydrALAZINE, 50 mg, oral, TID lidocaine, 2 patch, transdermal, Daily QUEtiapine, 50 mg, oral, Nightly senna-docusate, 2 tablet, oral, Nightly sodium chloride 0.9%, 0.5-20 mL, intra-catheter, Q8H SUSAN sodium chloride 0.9%, 0.5-20 mL, intra-catheter, Q8H SUSAN tamsulosin, 0.4 mg, oral, Daily with dinner Continuous Medications: Lactated Ringer's, PRN Medications: sodium chloride 0.9% Saline lock IV AND sodium chloride 0.9% AND sodium chloride 0.9% AND sodium chloride 0.9% cyclobenzaprine Lactated Ringer's oxyCODONE polyethylene glycol sodium chloride 0.9% Objective Vitals: 24hr Min/Max: Temp Min: 36.5 ??C (97.7 ??F) Max: 36.8 ??C (98.3 ??F) Pulse Min: 70 Max: 99 BP Min: 117/67 Max: 147/96 Resp Min: 14 Max: 22 SpO2 Min: 94 % Max: 97 % Most Recent : Vitals: 09/07/23 0814 BP: 140/78 Pulse: 86 Resp: 16 Temp: 36.8 ??C (98.2 ??F) SpO2: 96% I/O last 2 completed shifts: In: - Out: 175 [Urine:175] I/O this shift: In: - Out: 350 [Urine:350] Physical Exam: General: NAD HEENT: No scleral icterus or injection. PERRL, MMM Neck: supple without lymphadenopathy CV: RRR, S1, S2, no MRG Lung: CTAB. Normal respiratory rate and effort on RA. Abdomen: soft, tender to palpation in all quadrants. Skin: there is patchy depigmentation of the skin of the hands and axilla. Neuro: A&Ox3, strength and sensation grossly intact Extremity: well perfused, DP pulses intact. No lower extremity edema. Labs Recent Labs Lab Units 09/06/239 09/06/23 0008 WBC K/cumm 9.5 12.3* HEMOGLOBIN g/dL 13.3 15.0 HEMATOCRIT % 40.5 45.7 PLATELETS K/cumm 303 337 NEUTROS PCT % -- 83.1 LYMPHS PCT % -- 9.8 MONOS PCT % -- 5.8 EOS PCT % -- 0.2 Recent Labs Lab Units 09/06/23 2259 09/06/23 1115 09/06/23 0008 SODIUM mmol/L 136 136 135 POTASSIUM PLASMA mmol/L 3.7 3.9 4.5 CHLORIDE mmol/L 101 100 98 CO2 mmol/L 24 24 20* ANIONGAP mmol/L 11 12 17* GLUCOSE mg/dL 101 98 144 BUN SERUM mg/dL 27* 22 17 CREATININE mg/dL 1.40* 1.25 1.16 CALCIUM mg/dL 9.9 9.8 11.0* ALBUMIN g/dL -- -- 4.8 ALK PHOS Units/L -- -- 131* ALT Units/L -- -- 19 AST Units/L -- -- 23 BILIRUBIN TOTAL mg/dL -- -- 0.6 Recent Labs Lab Units 09/06/23 0008 INR 1.08 Recent Labs Lab Units 09/06/23 0008 ALK PHOS Units/L 131* BILIRUBIN TOTAL mg/dL 0.6 TOTAL PROTEIN g/dL 10.1* ALT Units/L 19 AST Units/L 23 Recent Labs Lab Units 09/06/23 0307 LACTATE mmol/L 1.0 Recent Labs Lab Units 09/06/23 0543 WBC UR QT /HPF 0-5 RBC UR /HPF 0-2 BACTERIA URQT Trace* LEUKOCYTE ESTERASE UR Negative NITRITE UR Negative PH, URINE 6.5 GLUCOSE URQL Negative PROTEIN UR QL 1+* KETONES UR 1+* BILIRUBIN URINE Negative BLOOD UR Negative UROBILINOGEN UR mg/dL <2.0 I have reviewed the above laboratory results. Imaging CTA Chest Abdomen Pelvis (Dissection Protocol CT) Narrative: EXAMINATION: CT ANGIOGRAPHY OF THE CHEST, [...] for aortic dissection (aorta). The contrast enhanced transaxial images were obtained following the intravenous administration of [...] abdominal aorta to a maximum of approximately 4.3 cm is unchanged. Abdominal aortic stenting with SMA arising from the stented portion. Celiac artery arising from the false lumen with severe narrowing [...] artery pseudoaneurysm with narrow neck. Dictated by: Leo Ventura MD, PHD The radiology attending physician has personally reviewed this study, and had reviewed and/or edited this written report and agrees with it. Electronically signed by: Buffy Chang M.D. Assessment/Plan Eriberto Chau is a 33 y.o. 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 He is admitted for acute on chronic abdominal/back pain refractory to IV pain medications in the ED. #Acute on chronic back pain. #Acute on chronic abdominal pain Patient has been dealing with ongoing chronic abdominal and back pain since he had a thoracic aortic aneurism repair 04/2023. Patient complaining of a diffuse abdominal and back pain, which is non-centralized but somewhat worse in the LLQ/flank area. Made worse with any movement. Only made better by opiate pain medications. On second day of admission the pain was somewhat improved abdominal pain 4/10, back pain 7/10. Broad workup to rule out acute causes -CT AP w/ contrast this admission showing stability of the aneurism from prior. -He had a spine MRI back in May -No white count/fever/hematologic or other laboratory abnormalities. -Normal lactate suggests against gut ischemia -Trops negative Current pain regiment: -APAP 1 g Q6H -Flexaril 10mg TID PRN -Lidocaine patch -amitriptyline 25 mg nightly -gabapentin 300 mg TID -Oxycodone 5 mg Q4H PRN #History of thoracic aortic dissection (etiology unknown) Patient with thoracic aortic dissection in 04/2023 and repeat repair in 05/2023. The patient was hypertensive during the initially dissection (190s/120s?). The underlying etiology of the original dissection has not yet been elucidated. He does have several symptoms and signs to suggest a history of underlying systemic disease including weight loss, night sweats, dry eyes, dry mouth, urinary retention, abdominal pain, back pain, calcified mediastinal lymph nodes on CT, and stigmata of previous granulomatous disease of the spleen on CT. Ultimately a comprehensive outpatient workup will be needed, including genetic testing, but while the patient is admitted we run cursory testing. -UPEP, SPEP -ESR, CRP, -PRP -T-spot -SI joint x-ray -Consult to rheumatology #HTN Goal <120/80. Low BP goal due to the history of thoracic aortic aneurism. Continue home: Amlodipine 10 mg daily Hydral 50 mg TID Increase Carvedilol to 50 mg BID #Vitamin D Deficiency Vitamin D level of 9 this admission. Ergocholcalciferol 50k units weekly for 8 weeks #Constipation -Miralax -Senna-docusate Code Status: Full Code Diet: Adult Diet Regular DVT Prophylaxis: Lovenox Dispo: Otoniel Echols PGY-1 Internal Medicine Cosigned by Karine Louis MD at 09/08/2023 2:23 PM CDT Associated attestation - Karine Louis MD - 09/08/2023 2:23 PM CDT Attending Documentation I have seen and examined the patient on 09/07/2023. I agree with the findings and plan of care as documented in the resident's/fellow's note. and as discussed with the resident/fellow. Supplementary Attestation Today, I am treating the patient for severe abdominal and back pain, h/o Type B Aortic Dissection s/p repair in 04/2023 & second repair in May 2023 , HTN which is in severe exacerbation, progression, or experiencing treatment side effects as evidenced by N/A, as described in the note. Reviewed records from the following unique sources (external institutions or providers from different services): [facility] previous emergency medicine and pain medicine team notes. Etiology of back and abdominal pain without clear etiology currently. CT A/P with stability of aneurysm and previous spine MRI without clear etiology. No evidence of mesenteria ischemia or infection.Additional history obtained this AM (documented in Dr. Jonny Farris's significant event note) ? underlying rheumatologic etiology vs. More likely functional abdominal pain, IBS, or post- operative sequela of previous surgical intervention for aortic dissection. Plan to schedule APAP, oxycodone 5mg po q4hrs as needed for breakthrough pain with plan to titrate down pending additional evaluation. Rheum consult. Karine Louis MD * Leo Dueñas - 09/07/2023 2:20 PM CDT 09/07/23 1400 Time Spent Start Time 1400 Stop Time 1410 Time Calculation (min) 10 min Patient Spiritual Assessment Spirituality Assessed Focus of Care [employer] Affiliation Taoism Clinical Encounter Type Visited With Patient not available (sleeping) Response Type Routine visit (consult request) Routine Visit Introduction Reason for visit Support Referral From Patient [facility] Spiritual Care Note Resident Land Manager Leo Dueñas Triage: [phone] * Leo Dueñas - 09/07/2023 9:43 AM CDT 09/07/23 0900 Time Spent Start Time 0915 Stop Time 0925 Time Calculation (min) 10 min Patient Spiritual Assessment Spirituality Assessed Unable to assess [employer] Affiliation [employer] Clinical Encounter Type Visited With Patient not available (sleeping) Response Type Routine visit (consult request) Routine Visit Introduction Reason for visit Support Referral From Patient [facility] Spiritual Care Note Resident Land Manager Leo Dueñas Triage: [phone] documented in this encounter H&P Notes * Otoniel Echols MD - 09/06/2023 6:01 PM CDT General Medicine History and Physical HPI: Eriberto Chau is a 33 y.o. 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 In 04/2023 the patient was admitted with Type B Aortic dissection in the setting of uncontrolled hypertension 2/2 medication non-compliance. At that time he underwent endovascular repair, in May he underwent a second endovascular repair. Since that time the patient has been having ongoing back pain. The patient was briefly on oxycodonein the postoperative period, but then was started on multimodal pain control. Despite that the patient has had several ED visits/ ED to hospital admission for uncontrolled pain. The long-term plan was to have the patient establish with pain management. His initial visit with them is schedule for 09/26. Today the patient presented to the ED with CC of back pain. Initial vitals. T 36.8 ??C, Pulse: 107,Resp: 18, BP: 169/120 , SpO2: 96 %. Patient was initially started on esmolol drip due to concern for progression of thoracic abdominal aortic. CT imagining then showed stable thoracic aorta from prior. Pain refractory to IV dilaudid 1 mg 3x. Patient admitted to medicine for presumed diagnosis of acute on chronic back pain- refractory to IV pain medications. Past Medical History: Diagnosis Date Hypertension Kidney stones Past Surgical History: Procedure Laterality Date ABDOMINAL AORTIC ANEURYSM REPAIR (Not in a hospital admission) Allergies Allergen Reactions Lisinopril Angioedema Amoxicillin Hives Social History Tobacco Use Smoking status: Never Smokeless tobacco: Never Substance and Sexual Activity Drug use: Not Currently Sexual activity: Not on file Alcohol Use: Not At Risk (07/04/2023) AUDIT-C Frequency of Alcohol Consumption: Never Average Number of Drinks: Patient does not drink Frequency of Binge Drinking: Never No family history on file. ROS: See HPI. Review of systems otherwise negative. Scheduled Meds PRN Meds Infusions amitriptyline, 25 mg, oral, Nightly amLODIPine, 10 mg, oral, Daily aspirin, 81 mg, oral, Daily carvediloL, 37.5 mg, oral, BID with meals (bkfst, dinner) gabapentin, 300 mg, oral, TID hydrALAZINE, 50 mg, oral, TID lidocaine, 2 patch, transdermal, Daily QUEtiapine, 50 mg, oral, Nightly senna-docusate, 2 tablet, oral, Nightly cyclobenzaprine, 10 mg, oral, TID PRN oxyCODONE, 10 mg, oral, Q4H PRN Objective Vitals: 24hr Min/Max: Temp Min: 36.8 ??C (98.3 ??F) Max: 36.8 ??C (98.3 ??F) Pulse Min: 69 Max: 107 BP Min: 94/69 Max: 169/120 Resp Min: 8 Max: 22 SpO2 Min: 88 % Max: 100 % Most Recent : Vitals: 09/06/23 1700 BP: 130/90 Pulse: 82 Resp: 14 Temp: SpO2: Physical Exam: General: The patient is in acute distress complaining of pain HEENT: MMM Neck: supple without lymphadenopathy CV: RRR, S1, S2, no MRG Lung: CTAB. Normal work of breathing on RA. Abdomen: soft, non-distended. The patient has abdominal tenderness in all quadrants. MSK: No clear exacerbation of pain when tested for CVA tenderness. Skin: Patchy depigmentation of the hands. Neuro: A&Ox3, strength and sensation grossly intact Psych: Patient distressed complaining of severe abdominal and back pain. Extremity: well perfused, DP pulses intact. No lower extremity edema. Labs Na 136 Cl 100 BUN 22 K 3.9 CO2 24 Cr 1.25 Mg -, G AST 23 ALT 19 Alk Phos 131 Ca 9.8 TP - Alb 4.8 Total Bili: 0.6 Direct Bili: - \ Hgb 15.0 / WBC 12.3 -------- Plt 337 / MCV 86.4 \ INR 1.08 HS Trop <4 Lactate 1.0 Lipase 10 Imaging CTA Chest Abdomen Pelvis (Dissection Protocol CT) Result Date: 09/06/2023 1. Unchanged thoracoabdominal aortic dissection status post endovascular aortic repair with residual filling of the false lumen. There is persistent filling of the false lumen aneurysmal dilatation of the distal descending thoracic aorta. No acute change from the prior study dated 08/03/2023. Visceral arteries remain widely patent. No acute change since prior to explain the patient's symptoms. 2. 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 Dictated by: Leo Ventura MD, PHD Micro Hep B, Hep C, and RVP negative Assessment and Plan Eriberto Chau is a 33 y.o. 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 He is admitted for acute on chronic abdominal/back pain refractory to IV pain medications in the ED. #Acute on chronic back pain. #Acute on chronic abdominal pain #History of thoracic aortic aneurism Patient has been dealing with ongoing chronic abdominal and back pain since he had a thoracic aortic aneurism repair 04/2023. Patient complaining of a diffuse abdominal and back pain, which is non-centralized but somewhat worse in the LLQ/flank area. Made worse with any movement. Only made better by opiate pain medications. Broad workup to rule out acute causes -CT AP w/ contrast this admission showing stability of the aneurism from prior. -He had a spine MRI back in May -No white count/fever/hematologic or other laboratory abnormalities. -Normal lactate suggests against gut ischemia -Trops negative Pain will augment with home regiment with low dose opiate and broader multimodal pain control. #HTN Goal <120/80. Low BP goal due to the history of thoracic aortic aneurism. Continue home: Amlodipine 10 mg daily Hydral 50 mg TID Carvedilol 37.5 mg BID #Vitamin D Deficiency Vitamin D level of 9 this admission. Ergocholcalciferol 50k units weekly for 8 weeks Code Status: Prior Diet: Adult Diet Restricted; 2 GM Sodium DVT Prophylaxis: Levnox Dispo: O[facility]ch[facility] Internal Medicine PGY-1 Cosigned by Karine Louis MD at 09/07/2023 7:56 PM CDT Associated attestation - Karine Louis MD - 09/07/2023 7:56 PM CDT Attending Documentation I have seen and examined the patient on 09/07/23. I agree with the findings and plan of care as documented in the resident's/fellow's note. and as discussed with the resident/fellow. Supplementary Attestation Today, I am treating the patient for severe abdominal pain, Type B Aortic Dissection s/p repair in 04/2023 & second repair in May 2023, and HTN which is in severe exacerbation, progression, or experiencing treatment side effects as evidenced by N/A, as described in the note. Karine Louis MD documented in this encounter Consult Notes * Camille Acuna, RD - 09/07/2023 5:10 PM CDTAssociated Order(s): IP CONSULT TO NUTRITION SERVICES NUTRITION ASSESSMENT Nutrition Status: Patient at risk for malnutrition, but does not meet ASPEN criteria for malnutrition. REASON FOR ASSESSMENT: Consult/Referral - Malnutrition Assessment Encounter Date: 09/07/23 5:21 PM Admission Date: 09/05/2023 LOS: 1 days HPI: Patient is a 33 y.o. male with PMH Obesity, Type B Aortic Dissection s/p repair in 04/2023 & second repair in May 2023 , HTN. He is admitted for acute on chronic abdominal/back pain refractory toIV pain medications in the ED. Objective Past Medical History: Diagnosis Date Hypertension Kidney stones Past Surgical History: Procedure Laterality Date ABDOMINAL AORTIC ANEURYSM REPAIR Social History Tobacco Use Smoking status: Never Smokeless tobacco: Never Substance and Sexual Activity Drug use: Not Currently Sexual activity: None Alcohol Use: Not At Risk (07/04/2023) AUDIT-C Frequency of Alcohol Consumption: Never Average Number of Drinks: Patient does not drink Frequency of Binge Drinking: Never MEDICATION/LAB REVIEW: Scheduled Meds: acetaminophen, 1,000 mg, oral, Q6H amitriptyline, 25 mg, oral, Nightly amLODIPine, 10 mg, oral, Daily aspirin, 81 mg, oral, Daily carvediloL, 50 mg, oral, BID with meals (bkfst, dinner) enoxaparin, 40 mg, subcutaneous, Daily-2100 ergocalciferol, 50,000 Units, oral, Weekly gabapentin, 300 mg, oral, TID hydrALAZINE, 50 mg, oral, TID lidocaine, 2 patch, transdermal, Daily QUEtiapine, 50 mg, oral, Nightly senna-docusate, 2 tablet, oral, Nightly sodium chloride 0.9%, 0.5-20 mL, intra-catheter, Q8H SUSAN sodium chloride 0.9%, 0.5-20 mL, intra-catheter, Q8H SUSAN tamsulosin, 0.4 mg, oral, Daily with dinner Continuous Infusions: Lactated Ringer's, PRN Meds: sodium chloride 0.9% Saline lock IV AND sodium chloride 0.9% AND sodium chloride 0.9% AND sodium chloride 0.9% cyclobenzaprine Lactated Ringer's oxyCODONE polyethylene glycol sodium chloride 0.9% Recent Labs Lab Units 09/06/23225809/06/23 1115 09/06/23 0008 SODIUM mmol/L 136 < > 135 POTASSIUM PLASMA mmol/L 3.7 < > 4.5 CHLORIDE mmol/L 101 < > 98 CO2 mmol/L 24 < > 20* BUN SERUM mg/dL 27* < > 17 CREATININE mg/dL 1.40* < > 1.16 [id number] mL/min/1.73 m2 69 < > 86 CALCIUM mg/dL 9.9 < > 11.0* ALBUMIN g/dL -- -- 4.8 < > = values in this interval not displayed. Recent Labs Lab Units 09/06/23225809/06/235 09/06/23 0008 GLUCOSE mg/dL 101 98 144 ALT Date Value Ref Range Status 09/06/2023 19 7 - 55 Units/L Final AST Date Value Ref Range Status 09/06/2023 23 10 - 50 Units/L Final Alk phos Date Value Ref Range Status 09/06/2023 131 (H) 40 - 130 Units/L Final Lipase Date Value Ref Range Status 09/06/2023 10 10 - 99 Units/L Final Lab Results Component Value Date TRIG 129 06/21/2023 NURSING ASSESSMENT: Last BM Date: 09/05/23 Bowel Sounds (All Quadrants): Active Toni Scale Score: 20 Vital Signs BP: 150/94 Temp: 36.8 ??C (98.2 ??F) Pulse: 69 Resp: 16 SpO2: 96 % Intake/Output Summary (Last 24 hours) at 09/07/2023 1721 Last data filed at 09/07/2023 1705 Gross per 24 hour Intake -- Output 450 ml Net -450 ml Adult Malnutrition Scoring Tool (MST) What diet do you follow at home?: regular diet Have You Recently Lost Weight Without Trying?: Yes (Comment) How Much Weight Have You Lost?: 24 - 33 lb Have you been eating poorly because of a decreased appetite?: Yes Malnutrition Screening Tool (MST) Score: 4 Hunger Screen - Admission Within the past 12 months the food we bought just didn't last and we didn't have money to get more.: Never true Within the past 12 months we worried whether our food would run out before we got money to buy more.: Never true Anthropometrics Weight: 93 kg (205 lb) Admission Weight : 93 kg Weight Change: 0.00 kg (0.00 lbs) IBW/kg (Calculated) : 72.6 kg Height: 175.3 cm (5' 9 ) Weight in (lb) to have BMI = 25: 168.9 BMI (Calculated): 30.3 Wt Readings from Last 10 Encounters: 09/05/23 93 kg (205 lb) 08/23/23 93 kg (205 lb) 08/03/23 94.8 kg (209 lb) 07/26/23 97.5 kg (215 lb) 07/20/23 96.8 kg (213 lb 6.4 oz) 07/04/23 97.5 kg (215 lb) 06/24/23 98.8 kg (217 lb 13 oz) 06/11/23 100.7 kg (222 lb 0.1 oz) 05/16/23 99.2 kg (218 lb 11.2 oz) 05/06/23 111.6 kg (246 lb 0.5 oz) ESTIMATED NEEDS: . Dietary Orders (From admission, onward) Start Ordered 09/06/231940 Adult Diet Regular Diet effective now Question: ([facility]) Diet type Answer: Regular 09/06/231940 Allergies: Reviewed. IMPRESSION: Pt reports poor po intake, did not eat breakfast today. Reports no NV today but had nausea yesterday. C/o early satiety. Refuses Ensure Original/Plus. Agrees to Ensure Clear. 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 ASPEN MALNUTRITION ASSESSMENT: Date of completion: 4/10/24 NUTRITION FOCUSED PHYSICAL EXAM: Not clinically indicated, no concerns for malnutrition at this time. NUTRITION DIAGNOSIS: Nutrition Diagnosis 1: Inadequate oral intake Related to: Loss of appetite Evidenced by: PO under 50% INTERVENTION(S): Summary: Meals and snacks, Medical food supplement Ensure Clear (wagner) on trays Please offer pt snacks between meals GOAL(S): Oral intake to meet 75% estimated nutritional needs by next assessment, Tolerance of medical food supplement by next assessment MONITORING/EVALUATION: * Layla Chaudhary MD - 09/07/2023 1:26 PM CDTAssociated Order(s): IP CONSULT TO RHEUMATOLOGY Images from the original note were not included. Rheumatology Consult Name: Eriberto Chau Today: September 07, 2023 : 1990 Age: 33 y.o. male Reason for Consult: ?Vasculitis, granulomatous lesions Requesting Provider: Dr. Dimas Subjective HPI: Eriberto Chau is a 33 y.o. patient with PMH Obesity, Type B Aortic Dissection s/p repair in 04/2023 & second repair in May 2023, HTN, presented to the ED on 09/05 for back pain, currently admittedto medicine for management of the same. Rheumatology consulted for h/o spontaneous type B aortic dissection in this young individual and with imagings concerning for granulomatous lesions. (Taken from H/P) In 04/2023 the patient was admitted with Type B Aortic dissection in the setting of uncontrolled hypertension 2/2 medication non-compliance. At that time he underwent endovascular repair, in May he underwent a second endovascular repair. Since that time the patient has been having ongoing back pain. The patient was briefly on oxycodonein the postoperative period, but then was started on multimodal pain control. Despite that the patient has had several ED visits/ ED to hospital admission for uncontrolled pain. The long-term plan was to have the patient establish with pain management. His initial visit with them is schedule for 09/26. He was hypertensive 160s/120s on presentation and was initially started on esmolol drip due to concern for progression of thoracic abdominal aortic. CT imagining then showed stable thoracic aorta from prior. CTA CAP (09/05): 1. 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 No acute change since prior to explain the patient's symptoms. 2. 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 No suspicious pulmonary nodules. There is no supra clavicular, axillary, or mediastinal lymphadenopathy. There are scattered calcified granulomas. There is calcification of hilar lymph nodes with history of old granulomatous disease. The spleen demonstrates granulomas consistent with history of oldgranulomatous disease. CTCAP (04/2023): Before the EVAR. Type B thoracic aortic dissection: upto left common iliac artery.Dissection ?around mid thoracic aorta. Increased fat stranding is noted about the aortic arch and the proximal great vessels without intraluminal extension of the dissection. There is partial thrombosis of the false lumen within the distal thoracic aorta. 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 Mild thoracic LAD, reactive. MRI CTLS spine with contrast (04/2023): dorsal subdural hematoma or subarachnoid hemorrhage extending from T11 to S1 measuring up to 6 mm at L4 with displacement of the adjacent nerve roots and moderate spinal canal stenosis. He reports left lower quadrant abdominal pain which radiates to his mid abdomen. This is stabbing in character and continuous. It is associated with nausea but no vomiting. He had one episode of darktarry stool at home but hasn't had any repeat episodes. No diarrhea. Patient reports chills, ?night sweats, decreased appetite, and 35 lbs of unintentional weight loss over the past 4 months. His lack of appetite is not due to abdominal pain per se but the fear that he might need a revision thoracic artery repair. Apparently he had eaten a lot the last time he needed a repair. He has chronic back pain since the surgery but it has worsened over the last month or so. His back pain bothers him in the morning and is associated with long stiffness. It gets better once he takes his opioid medication and starts to move around. He doesn't think it gets better with activity. No eye redness or pain but mentions dry eyes. No other joint pain. No achilles pain. He tearfully mentioned that he was using Cocaine around the time of the dissection. He was clean prior to this happening but had been told by PCP that his BP is out of control many times prior to this. Family history of thoracic aortic dissection in paternal grandfather. Review of Systems: (+) Weight Loss, (+) Fatigue, (-) Fever, (-) Hair Loss, (-) Headache, (-) Scalp Tenderness, (-) Jaw Claudication, (-) h/o Scleritis/Episcleritis, (-) h/o Iritis/Uveitis, (- ) Oral/Nasal Ulcers, (-) Epistaxis, (+) Dry Eyes, (-) Dry Mouth, (-) Rash, (-) Photosensitivity, (-), Skin Ulcers, (-) Purpura/Petechiae, (-) Skin Tightening, (-) Pleurisy, (-) Pericarditis/Pericardial effusion, (-) Acid Reflux, (-) Enthesitis, (-) Dactylitis, (+) Back Pain, (-) Raynaud's, (-) DVT/PE (-) Hematuria, (-) Frothy urine, (-) Abnormal serologies. All other systems negative Past Medical History: Diagnosis Date Hypertension Kidney stones Past Surgical History: Procedure Laterality Date ABDOMINAL AORTIC ANEURYSM REPAIR Medications Prior to Admission Medication Sig Dispense Refill Last Dose amitriptyline (ELAVIL) 25 mg tablet Take 1 tablet (25 mg total) by mouth nightly 30 tablet 0 amLODIPine (NORVASC) 10 mg tablet Take 1 tablet (10 mg total) by mouth daily 30 tablet 11 aspirin 81 mg chewable tablet Take 1 tablet (81 mg total) by mouth daily 30 tablet 11 capsaicin (ZOSTRIX) 0.025 % cream Apply topically 2 (two) times a day 60 g 0 carvediloL (COREG) 12.5 mg tablet Take 2 tablets (25 mg total) by mouth 2 (two) times a day with meals (Patient taking differently: Take 2 tablets (25 mg total) by mouth 2 (two) times a day with meals taking 37.5mg twice daily) 120 tablet 11 cyclobenzaprine (FLEXERIL) 10 mg tablet Take 1 tablet (10 mg total) by mouth 3 (three) times a day as needed for muscle spasms 90 tablet 0 ferrous sulfate 325 mg (65 mg of elemental iron) tablet Take 1 tablet (325 mg total) by mouth 3 (three) times a day with meals gabapentin (NEURONTIN) 300 mg capsule Take 1 capsule (300 mg total) by mouth 3 (three) times a day 90 capsule 1 hydrALAZINE (APRESOLINE) 50 mg tablet Take 1 tablet (50 mg total) by mouth 3 (three) times a day 90tablet 11 meloxicam (MOBIC) 15 mg tablet Take 1 tablet (15 mg total) by mouth daily for 14 days 14 tablet 0 ondansetron ODT (ZOFRAN-ODT) 4 mg disintegrating tablet Take 1 tablet (4 mg total) by mouth every 8(eight) hours as needed for nausea or vomiting 10 tablet 0 QUEtiapine (SEROquel) 50 mg tablet Take 1 tablet (50 mg total) by mouth nightly senna-docusate (PERICOLACE) 8.6-50 mg Take 2 tablets by mouth 2 (two) times a day To prevent constipation 40 tablet 0 Allergies Allergen Reactions Lisinopril Angioedema Amoxicillin Hives History reviewed. No pertinent family history. (-) Family history of arthritis, (-) Family history of autoimmune disease Social History Tobacco Use Smoking status: Never Smokeless tobacco: Never Substance and Sexual Activity Drug use: Not Currently Sexual activity: None Alcohol Use: Not At Risk (07/04/2023) AUDIT-C Frequency of Alcohol Consumption: Never Average Number of Drinks: Patient does not drink Frequency of Binge Drinking: Never Scheduled Meds:acetaminophen, 1,000 mg, oral, Q8H amitriptyline, 25 mg, oral, Nightly amLODIPine, 10 mg, oral, Daily aspirin, 81 mg, oral, Daily carvediloL, 37.5 mg, oral, BID with meals (bkfst, dinner) enoxaparin, 40 mg, subcutaneous, Daily-2100 ergocalciferol, 50,000 Units, oral, Weekly gabapentin, 300 mg, oral, TID hydrALAZINE, 50 mg, oral, TID lidocaine, 2 patch, transdermal, Daily QUEtiapine, 50 mg, oral, Nightly senna-docusate, 2 tablet, oral, Nightly sodium chloride 0.9%, 0.5-20 mL, intra-catheter, Q8H SUSAN sodium chloride 0.9%, 0.5-20 mL, intra-catheter, Q8H SUSAN tamsulosin, 0.4 mg, oral, Daily with dinner Continuous Infusions:Lactated Ringer's, PRN Meds:. sodium chloride 0.9% Saline lock IV AND sodium chloride 0.9% AND sodium chloride 0.9% AND sodium chloride 0.9% cyclobenzaprine Lactated Ringer's oxyCODONE polyethylene glycol sodium chloride 0.9% Objective Vitals: 24hr Min/Max: Temp Min: 36.5 ??C (97.7 ??F) Max: 36.8 ??C (98.3 ??F) Pulse Min: 70 Max: 99 BP Min: 117/67 Max: 147/96 Resp Min: 14 Max: 22 SpO2 Min: 94 % Max: 99 % Most Recent: BP 140/78 Comment: Simultaneous filing. User may not have seen previous data. Pulse 86 Comment: Simultaneous filing. User may not have seen previous data. Temp 36.8 ??C (98.2 ??F) (Oral) Resp 16 Ht 175.3 cm (5' 9 ) Wt 93 kg (205 lb) SpO2 96% BMI 30.27 kg/m?? GEN: Well developed, well nourished. Tearful, depressed mood HEENT: Moist oral mucosa. No oral lesions. Anicteric, non-injected sclera. CV: Regular rate and rhythm. No murmurs, gallops or rubs PULM: Clear to auscultation bilaterally ABD: Tenderness in the LLQ, no rebound tenderness, no guarding or rigidity MSK: Tenderness in the entire lumbosacral spine and SI joint area, no point tenderness, paraspinal muscle tenderness+, no synovitis in other examined joints SKIN: Vitiligo patches generalized EXT: No edema NEURO: Alert and oriented to person, place and time, weakness of the LLE PSYCH: Appropriate affect. I/O last 2 completed shifts: In: - Out: 175 [Urine:175] I/O this shift: In: - Out: 100 [Urine:100] Lab/Radiology/Diagnostic Review: Reviewed CRP 7.2, ESR 43 (06/13: CRP 156, ESR 92) Hep B/C nonreactive TSPOT pending Low Vitamin D: 9 Intact PTH 33, Calcium 9.9 (11 on presentation), Cr 1.16-1.4, GFR in the 70s Assessment and Recommendation: Eriberto Chau is a 33 y.o. patient with PMH Obesity, Type B Aortic Dissection s/p repair in 04/2023 & second repair in May 2023, HTN, presented to the ED on 09/05 for back pain, currently admittedto medicine for management of the same. Rheumatology consulted for h/o spontaneous type B aortic dissection in this young individual and with imagings concerning for granulomatous lesions. Type B aortic dissection s/p repair: thought to be in the setting of HTNsive urgency H/o cocaine use -D/D: vascular EDS given family history, can plan for genetic panel as an outpatient, with regular ECHO but more of an outpatient issue. -Please order ANCA but low suspicion. Back pain: vague symptoms but some concerning for inflammatory nature of back pain Given age and inflammatory symptoms, would want to get MRI SI joint. Persistent tenderness in the LS spine with prior history of spinal canal stenosis s/p surgery, would like to get an MRI LS spine as well. -HLAB27 test. Abdominal pain -Low concern for mesenteric ischemia, he does mention fear of eating but doesn't specify pain or early satiety in particular. 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 Spoke to Dr. Chang from radiology and given the SMA/CHI is patent, she doesn't think any other imaging is warranted and this is likely secondary to the dissection as it has remained stable since 04/2023. 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 -Concern for Sarcoidosis, but not biopsiable lesion in the current CTCAP scan. Hypercalcemia resolved on repeat testing. Don't think granulomatous sarcoid inflammation contributed to the dissection. Unfortunately, we don't have any tissue from the surgeries. -Pending TSPOT. -Would complete workup for fungal serologies, Histo negative 06/13. Patient clearly very depressed and anxious about his disease course. He might benefit from a mentalhealth evaluation and support. Patient was seen with and case was discussed with Rheumatology Attending, Dr. Simmons. September 07, 2023 Layla Chaudhary MD Cosigned by Justine Simmons MD at 09/08/2023 5:56 PM CDT Associated attestation - Justine Simmons MD - 09/08/2023 5:56 PM CDT My total encounter time on this service date was 20 minutes which was spent performing a [id number] encounter and personally completing the provider-level activities documented in the note. This includes time spent prior to the visit and after the visit in direct care of the patient. This time does not include time spent in any separately reportable services. I have seen and examined the patient on 09/07/2023. I agree with the findings and plan of care as documented in the resident's/fellow's note.. documented in this encounter Nursing Notes * Dayami Olivarez RN - 09/09/2023 3:09 PM CDT Pt discharged ; Pt's VSS per baseline; Pt's IV removed per MD order; dressing applied at site and is C/D/I. Pt is A&O x 4_ . Discharge instructions discussed with pt including home medicaions, S&S to monitor, and follow-up appointments via VRN. Pt states understanding. Pt's belongings returned. Pt leaving via private vehicle, accompanied by mother. * Tiffany Pineda RN - 09/09/2023 2:46 PM CDT AVS/discharge instructions provided. Notified bedside RN for pending items to be resolved on their end. All patient care, interactions and documentation performed by me as part of the patient care team are in the role of a Virtual Inpatient Nurse. This support has been provided through telemedicinewith real time communication via two-way audio/visual technology and in collaboration with the bedside patient care team. * Daaymi Olivarez RN - 09/08/2023 7:22 PM CDT Had 1 episode of formed brown mixed with bright red bloody stool. MD Vazquez informed. * Evy Brian RN - 09/06/2023 6:35 PM CDT Images from the original note were not included. Admission Note- Mobility Focused BMAT SCORE: 4 Is the patient experiencing pain that is impacting their mobility? Yes Pain not associated with ambulating, pain due to chest/body pain. Altered mental status?: No Most recent vital signs: BP (!) 145/125 Pulse 99 Temp 36.5 ??C (97.7 ??F) (Oral) Resp 22 Ht175.3 cm (5' 9 ) Wt 93 kg (205 lb) SpO2 97% BMI 30.27 kg/m?? Current LDA's (Fill in manually): documented in this encounter ED Notes * Jennifer Perez RN - 09/06/2023 4:10 PM CDT Bed: ED4-03 Expected date: Expected time: Means of arrival: Comments: EM1 cantu Jennifer Perez RN 09/06/23 1610 * Marina Arias MD - 09/06/2023 12:51 AM CDT HPI Chief Complaint Patient presents with ??? Abdominal Pain ??? Back Pain ??? Black or Bloody Stool ??? Vomiting HPI Triage: Pt to ED with complaints of 10/10 abdominal pain since this am. Back pain, vomiting. Pt reports bloody stool 1 hour ago. 7/10 chest pain. Pt arrives aox4. Hx: AAA repair. - Eriberto is a 33 year old male with a PMH of Type B Aortic Dissection s/p endovascular repair in 04/2023 & second repair in May 2023. Patient has recurrent severe cramping abdominal and back pain. He reports his symptoms began following dissection repair. This morning his symptoms acutely worsened as soon as he woke up. He has vomited (NBNB) multiple times today. He had one instance of stool with dark red blood (1-2 tbs) today. He reports fevers and chills. Patient History: Patient Active Problem List Diagnosis Date Noted ??? Back pain at L4-L5 level 08/23/2023 ??? PFO (patent foramen ovale) 07/05/2023 ??? Ureteral stone 07/04/2023 ??? Abdominal pain 07/04/2023 ??? Other chronic pain 06/24/2023 ??? Pseudoaneurysm following procedure (CMS/HCC) ([facility]) 06/24/2023 ??? Infrarenal abdominal aortic aneurysm, without rupture ([facility]) 06/13/2023 ??? Polysubstance abuse (CMS/HCC) ([facility]) 06/10/2023 ??? Moderate malnutrition (CMS/HCC) ([facility]) 06/09/2023 ??? Dissection of abdominal aorta (CMS/HCC) ([facility]) 06/03/2023 ??? Urinary retention 05/16/2023 ??? Epistaxis 05/13/2023 ??? Pneumonia 05/13/2023 ??? HTN (hypertension) 05/13/2023 ??? Dissection of thoracoabdominal aorta (CMS/HCC) ([facility]) 05/02/2023 ??? Dissection of aorta, unspecified portion of aorta ([facility]) 05/01/2023 Past Medical History: Diagnosis Date ??? Hypertension ??? Kidney stones Past Surgical History: Procedure Laterality Date ??? ABDOMINAL AORTIC ANEURYSM REPAIR No family history on file. Social History Tobacco Use ??? Smoking status: Never ??? Smokeless tobacco: Never Substance and Sexual Activity ??? Alcohol use: Not Currently ??? Drug use: Not Currently ??? Sexual activity: Not on file Social History Social History Narrative ??? Not on file Review of Systems Review of Systems Physical Exam ED Triage Vitals Temp Pulse Resp BP SpO2 09/05/23224609/05/23224609/05/23224609/05/23224609/05/232246 36.8 ??C (98.3 ??F) 107 18 (!) 169/120 96 % Temp src Heart Rate Source Patient Position BP Location FiO2 (%) 09/05/232246 -- -- -- -- Oral Height Height Method Weight Weight Method 09/05/232245 -- 09/05/232245 -- 1.753 m (5' 9 ) 93 kg (205 lb) Physical Exam Vitals and nursing note reviewed. Constitutional: General: He is in acute distress. Appearance: He is well-developed. He is ill-appearing and diaphoretic. Comments: On right side, clutching abdomen in significant pain. HENT: Head: Normocephalic and atraumatic. Eyes: Conjunctiva/sclera: Conjunctivae normal. Cardiovascular: Rate and Rhythm: Normal rate and regular rhythm. Heart sounds: No murmur heard. Pulmonary: Effort: Pulmonary effort is normal. No respiratory distress. Breath sounds: Normal breath sounds. Abdominal: General: There is no distension. Palpations: Abdomen is soft. Tenderness: There is abdominal tenderness in the epigastric area and periumbilical area. There is guarding. Musculoskeletal: General: No swelling. Cervical back: Neck supple. Skin: General: Skin is warm. Capillary Refill: Capillary refill takes less than 2 seconds. Neurological: Mental Status: He is alert. Psychiatric: Mood and Affect: Mood normal. CHRISTIANO Wei is a 33 year old male with a PMH of Type B Aortic Dissection s/p endovascular repair in 04/2023 & second repair in May 2023. Patient has recurrent severe cramping abdominal and back pain. He reports his symptoms began following dissection repair. This morning his symptoms acutely worsened as soon as he woke up, with his abdominal pain (centrally located) radiating to his mid back. He has vomited (NBNB) multiple times today. He had one instance of stool with dark red blood (1-2 tbs) today. He reports fevers and chills. On chart review patient recently admitted for similar concern, evaluated by pain management following no acute concerns for imaging changes contributing to presentation. Pain mgmt recommended meloxicam 50 mg and amitriptyline 25, which patient reports he is taking. Patient also denies recent drug (including marijuana) use. VS initially notable for HTN with systolic to 160s. Patient distressed, on right side clutching abdomen. Significant TTP on left side of abdomen without obvious distension. Given history presentationmost concerning for recurrence or progression of dissection. Consider aortoenteric fistula given risk factors of recent surgeries. Other etiologies of abdominal pain with hematochezia include IBD, constipation, hemorrhoids. Consider cholecystitis given associated n/v although less likely with pain location. Chaperoned rectal exam (external only per patient's request) without active bleeding or obvious hemorrhoids. Plan for initial impulse control with esmolol with CTA dissection protocol to rule out dissection progression, Patient has history of chronic pain potentially related to hypersensitivity. Plan for IV pain control while awaiting imaging. Medical Decision Making Amount and/or Complexity of Data Reviewed Labs: ordered. Radiology: ordered. Decision-making details documented in ED Course. ECG/medicine tests: ordered. Risk OTC drugs. Prescription drug management. Decision regarding hospitalization. Attending Summary of Care ED Course as of 09/06/23 1333 Time: 09/05 128 Comment: Re-evaluated patient, reports improved abdominal pain. MAP has significantly decreased on esmolol, continuing to down-titrate. By: Marina Arias MD Time: 09/05 1592 Value: CTA Chest Abdomen Pelvis (Dissection Protocol CT) Comment: Prelim read - stable dissection, stable false lumen filling. IMPRESSION: 1. 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 There is persistent filling of the false lumen aneurysmal dilatation of the distal descending thoracic aorta. No acute change from the prior study dated 08/03/2023. Visceral arteries remain widely patent. No acute change since prior to explain the patient's symptoms. 2. 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 Dictated by: Leo Ventura MD, PHD By: Marina Arias MD Time: 09/05 499 Comment: Patient updated regarding imaging findings. Patient frustrated about recurrent pain. Patient reports he is compliant with pain mgmt recommendations and no longer using marijuana. By: Marina Arias MD Time: 09/06 715 Comment: TRANSITION OF CARE: I, Akash Spears MD, am taking signout from the resident under supervision of the attending.I have reviewed all pertinent vital signs, allergies, and history available in the chart. Summary: 33 y.o. male with PMH notable for Aortic Dissection s/p repair in 2019 who presents for abd pain. Pending: Bed placement Dispo: Medicine admission for abd pain s/p type B aortic dissection repaired in May 2019. @EDCOURSE@ By: Akash Spears MD Time: 09/06 715 Comment: Attending Signout: 33M with hx type B aortic dissection s/p endovascular repair p/w abdominal pain. CT stable. Seen by pain management on previous visits- restarting their recommendations here. Pending medicine admit for symptomatic management. By: Rosey Posada MD Time: 09/05 0716 Comment: 33 yo M h/o abhilash TEVAR for descending aortic dissection and several recurrent visits ED andvascular evals for recurrent abd pain with stable CTs, had pain managment eval last admit and taking that regiment but still refractory so to ED. Exam very uncomofrtable/wrighting/diffuse abd ttp w/orebound, cta bilat, moves all 4. IMP: severe abd pain/prior aortic stent plan analgesia/CT/labs, anticipate admit. R/o aortic worsening dissection/infection, ischemia, bowel spasm, chronic functionalabd pain, htn crisis/start drip if analgesia does not settle. By: Dalton Jones MD Time: 09/05 1332 Comment: ED Hospitalist taking over care of this boarding patient. By: Rosey Posada MD No diagnosis found. Marina Arias MD Resident 09/06/23 5430 Cosigned by Dalton Jones MD at 09/06/2023 7:00 PM CDT Associated attestation - Dalton Jones MD - 09/06/2023 7:00 PM CDT I have seen and examined the patient on 09/06/23. I reviewed the resident's note and agree with the findings and plan of care as documented in the resident's note with modifications as documented in mynote. * Marina Infante RN - 09/05/2023 11:58 PM CDT Bed: ED1-15 Expected date: Expected time: Means of arrival: Comments: Marina Giang RN 09/05/23 2139 * Gus Poole RN - 09/05/2023 10:44 PM CDT Pt to ED with complaints of 10/10 abdominal pain since this am. Back pain, vomiting. Pt reports bloody stool 1 hour ago. 7/10 chest pain. Pt arrives aox4. Hx: AAA repair. documented in this encounter Miscellaneous Notes * Provider Query - Otoniel Echols MD - 09/09/2023 3:09 PM CDT Specify the significance of the abnormal BMI (body mass index) and document in the medical record and on the form below. Elevated BMI _x__Obesity BMI 30.27 ___Other, specify below * Plan of Care - Josie Boudreaux RN - 09/09/2023 1:31 PM CDT 09/07/23 1440 Discharge Summary Discharge Disposition Private residence Equipment/Provider Needs No Home Needs Identified Discharge Additional Assistance Does the patient need discharge transport arranged? No (Family to provide transportation) Post Discharge Care Provider Post Discharge Care Plan Next level of care provider has access to complete EMR Per medical team, patient is medically stable for discharge at this time. Follow up appointment hasbeen scheduled for September 29, 2023@2:[address] Carl Strickland. Transportation will be provided by family. Patient and/or family are agreeable with the plan. If any further discharge needs arise, please contact the covering pillowcase cutter. * Plan of Care - Layla Chaudhary MD - 09/09/2023 11:57 AM CDT Rheumatology Sign Off Recommendations Diagnosis: Back and abdominal pain PMD: Carl Strickland MD Rheumatology Attending: Dr. Simmons Current Moving Van Driver: No Summary of Consultation: Eriberto Chau is a 33 y.o. patient with PMH Obesity, Type B Aortic Dissection s/p repair in 04/2023 & second repair in May 2023, HTN, presented to the ED on 09/05 for back pain, currently admittedto medicine for management of the same. Rheumatology consulted for h/o spontaneous type B aortic dissection in this young individual and with imagings concerning for granulomatous lesions. Type B aortic dissection s/p repair: thought to be in the setting of HTNsive urgency H/o cocaine use -D/D: vascular EDS given family history, can plan for genetic panel as an outpatient, with regular ECHO but more of an outpatient issue. Back pain: vague symptoms but some concerning for inflammatory nature of back pain Given age and inflammatory symptoms, we got an MRI SI joint and LS spine which was unremarkable. Pending HLAB27 but low suspicion overall. Abdominal pain -Low concern for mesenteric ischemia, he does mention fear of eating but doesn't specify pain or early satiety in particular. 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 Spoke to Dr. Chang from radiology and given the SMA/CHI is patent, she doesn't think any other imaging is warranted and this is likely secondary to the dissection as it has remained stable since 04/2023. Patient clearly very depressed and anxious about his disease course. So we had advised mental health evaluation and support. We will sign off. Layla Chaudhary MD 09/09/2023 Cosigned by Justine Simmons MD at 09/10/2023 11:46 AM CDT * Plan of Care - Dayami Olivarez RN - 09/09/2023 7:41 AM CDT Goals: Clinical Goals for the Shift: normal vs; pain control; safety and comfort measures Problem: Activity Goal: Risk for activity intolerance and fatigue will decrease Outcome: Progressing Goal: Ability to tolerate increased activity will improve Outcome: Progressing Goal: Ability to avoid complications of mobility impairment will improve Outcome: Progressing Problem: Coping Goal: Verbalization of decreased anxiety will be supported Outcome: Progressing Goal: Able to verbalize concerns and demonstrate effective coping strategies Outcome: Progressing Goal: Kirti effectively with procedures resulting in improved understanding of illness/injury, pain/anxiety reduction Outcome: Progressing Goal: Ability to identify and develop effective coping behavior will improve Outcome: Progressing Problem: General Patient Education Goal: Knowledge of disease process, condition or treatment will be improved Outcome: Progressing Problem: Physical Regulation Goal: Will remain free from infection Outcome: Progressing Goal: Ability to maintain clinical measurements within normal limits will improve Outcome: Progressing Goal: Ability to maintain body temperature in the normal range will improve Outcome: Progressing * Plan of Care - Rolando Bradley RN - 09/08/2023 7:34 PM CDT Problem: Discharge Planning Goal: Understanding discharge needs will improve Outcome: Progressing Problem: Activity Goal: Risk for activity intolerance and fatigue will decrease Outcome: Progressing Goal: Ability to tolerate increased activity will improve Outcome: Progressing Goal: Ability to avoid complications of mobility impairment will improve Outcome: Progressing Problem: Chronic Conditions and Co-morbidities (Stable) Goal: Patient's chronic conditions and co-morbidity symptoms are monitored and maintained or improved (Please edit to comment chronic conditions for patient) Outcome: Progressing Problem: Coping Goal: Verbalization of decreased anxiety will be supported Outcome: Progressing Goal: Able to verbalize concerns and demonstrate effective coping strategies Outcome: Progressing Goal: Kirti effectively with procedures resulting in improved understanding of illness/injury, pain/anxiety reduction Outcome: Progressing Goal: Ability to identify and develop effective coping behavior will improve Outcome: Progressing Problem: Health Behavior Goal: Ability to state signs and symptoms to report to health care provider will improve Outcome: Progressing Goal: Ability to identify and alter actions that are detrimental to health will improve Outcome: Progressing Goal: Ability to identify and utilize available resources and services will improve Outcome: Progressing Goal: Compliance with prescribed regimen will improve Outcome: Progressing Problem: General Patient Education Goal: Knowledge of disease process, condition or treatment will be improved Outcome: Progressing Problem: Physical Regulation Goal: Will remain free from infection Outcome: Progressing Goal: Ability to maintain clinical measurements within normal limits will improve Outcome: Progressing Goal: Ability to maintain body temperature in the normal range will improve Outcome: Progressing Problem: Nutritional Goal: Nutrient intake appropriate for improving, restoring or maintaining nutritional needs Outcome: Progressing Goal: Implement dietary regimen as ordered Outcome: Progressing Problem: Safety Goal: Free from injury or harm Outcome: Progressing Goal: Ability to maintain safety and efficiency with swallowing without signs of aspiration will improve Outcome: Progressing Problem: Role Relationship Goal: Ability to maintain a functional system of mutual support for each family member will improve Outcome: Progressing Problem: Self-Care Goal: Ability to participate in self-care as condition permits will improve Outcome: Progressing Problem: Sensory Goal: General experience of comfort will improve Outcome: Progressing Clinical Goals for the Shift: normal vs; safety and comfort measures; pain management; improved appetite; continue 24hr urine * Hospital Course - Aurelia Contreras B.A. - 09/08/2023 1:54 PM CDT Eriberto Chau is a 33 y.o. yo male was admitted to the hospital on 09/06/23 for severe chest, abdominal, and back pain with vomiting. Mr. Chau has been dealing with ongoing chronic abdominal and back pain since he had a thoracic aortic aneurism repair 04/2023. Patient complaining of a diffuse abdominal and back pain, which is non-centralized but somewhat worse in the LLQ/flank area. Made worse with any movement. Only made better by opiate pain medications. He has had this pain for multiple episodes since 04/2023, once requiring abdominal aortic repair in May and Kidney stone removal and stenting in June. When arriving to the floor pt was writhing in pain. Pt was placed on APAP 650 q6, Flexeril 10mg TID PRN, Lidocainepatch, amitriptyline 25mg nightly, Gabapentin 300mg TID, and oxycodone 5mg q4 PRN. Goal was to utilize opiate pain management minimally. On second day of admission the pain was somewhat improved abdominal pain 4/10, back pain 7/10. Oxycodone was increased to 10mg q4 PRN due to high pain scores. On third day, pt rated a 4-5/10 pain, with him being more concerned about the abdominal pain. Stated that the back pain only occurs while moving. During this stay, given the unexplained nature of the pain, a broad workup was done to rule out acute causes. Abdominal aortic dissection was initially ruled out through a CT A w/ dissection protocol. His CBC, BMP, and lactate were followed during the hospital stay to rule out infection, hemorrhagic, hemolytic, or ischemic causes of his pain. Troponin were also negative. Rheumatology was consulted to further explore other inflammatory cuases of his pain given the hx of aortic dissection in a young patient and can cause mesenteric vasculitis, which would present with unremitting abdominal pain. ESR, CRP, ANCA, MRI LS spine, HLA B27, T-spot, Fungal Serologies, SPEP, UPEP, and RPR were all ordered. Due to mostly negative workup for the abdominal pain by day 3, pt was tried on Bentyl 20mgq6 PRN, which . After better abdominal pain control, pt was able to better describe the back pain as originating from lumbar region and shooting down both legs. On day 3 gabapentin was increased to 600mg TID and APAP increased to 1000mg q6. XR LS was negative. MRI LS was . Other hospital problems: #History of thoracic aortic dissection Patient with thoracic aortic dissection in 04/2023 and repeat repair in 05/2023. The patient was hypertensive during the initially dissection (190s/120s?) due to cocaine use (per rheum but per labsfrom that time he was positive for cannabinoids and fentanyl). He does have several symptoms and signs to suggest a history of underlying systemic disease including weight loss, night sweats, dry eyes, dry mouth, urinary retention, abdominal pain, back pain, calcified mediastinal lymph nodes on CT,and stigmata of previous granulomatous disease of the spleen on CT. He also has vitiligo, which mayhave some hereditary component given family history. Ultimately a comprehensive outpatient workup will be needed, including genetic testing, but while the patient is admitted we ran cursory testing to rule out genetic causes of the dissection (see above problem). -continue outpt fu with PCP and Rheumatology -continue anti-hypertensive medications. #HTN Goal <120/80. Low BP goal due to the history of thoracic aortic aneurism. Patient was started onamlodipine 10mg daily, hydral 50mg TID, and carvedilol 25mg BID. Due to continued high BP, pt medications were titrated and changed. -continue amlodipine 10mg daily, hydralazine 50mg TID, and labetalol 400mg BID -out patient fu w PCP #Vitamin D Deficiency Vitamin D level of 9 this admission. Ergocholcalciferol 50k units weekly was started while inpatient. -continue Ergocholcalciferol 50K units weekly for 8 weeks total (7 more weeks) w outpt PCP #Constipation Last bowel movement was same day as pt arriving into the ED. He continued to not have a BM until . Pt was placed on senna-docusate 2 tablets BID, miralax 17g daily . * Medical Student - Aurelia Contreras B.A. - 09/08/2023 11:30 AM CDT Daily Progress Note Patient name: Eriberto Chau Admission date: 09/05/2023 Date: 09/08/2023 Subjective Interval history Pain 7-02/06 bumped up his oxy to 10mg Rheum- ANCA, MRI LS spine, HLA B27, TSPOT, Fungal Serologies Pt had trouble sleeping due to pain and concern about HTN. Plan Switch to labetalol 400mg BID; stop coreg 50BID Start Dicyclomine 20mg q6 PRN for abd cramping Increase gabapentin to 600mg TID for shooting pain starting in his back MRI spine Wait for other labs Objective Medications: Scheduled: acetaminophen, 1,000 mg, oral, Q6H amitriptyline, 25 mg, oral, Nightly amLODIPine, 10 mg, oral, Daily aspirin, 81 mg, oral, Daily carvediloL, 50 mg, oral, BID with meals (bkfst, dinner) diazePAM, 5 mg, intravenous, Once enoxaparin, 40 mg, subcutaneous, Daily-2100 ergocalciferol, 50,000 Units, oral, Weekly gabapentin, 300 mg, oral, TID hydrALAZINE, 50 mg, oral, TID lidocaine, 2 patch, transdermal, Daily polyethylene glycol, 17 g, oral, Daily QUEtiapine, 50 mg, oral, Nightly senna-docusate, 2 tablet, oral, Nightly sodium chloride 0.9%, 0.5-20 mL, intra-catheter, Q8H SUSAN sodium chloride 0.9%, 0.5-20 mL, intra-catheter, Q8H SUSAN tamsulosin, 0.4 mg, oral, Daily with dinner Infusions: PRN: sodium chloride 0.9% Saline lock IV AND sodium chloride 0.9% AND sodium chloride 0.9% AND sodium chloride 0.9% cyclobenzaprine oxyCODONE sodium chloride 0.9% Vitals: 24hr Min/Max: Temp Min: 36.6 ??C (97.9 ??F) Max: 37.3 ??C (99.2 ??F) Pulse Min: 69 Max: 85 BP Min: 121/73 Max: 166/97 Resp Min: 16 Max: 18 SpO2 Min: 95 % Max: 98 % Most Recent: Vitals: 09/08/23 0857 BP: 145/91 Pulse: 84 Resp: 16 Temp: 36.8 ??C (98.3 ??F) SpO2: 95% Intake/Output Summary (Last 24 hours) at 09/08/2023 1130 Last data filed at 09/08/2023 0824 Gross per 24 hour Intake 450 ml Output 950 ml Net -500 ml Physical Exam: Constitutional: Well-developed, well-nourished, and in distress HEENT: Moist MM. Normal conjunctiva, no scleral icterus, EOMI. Neck: Supple, no jugular venous distension present or lymphadenopathy Cardiovascular: Normal rate, regular rhythm, S1/S2 normal. No murmurs or extra heart sounds. Pulmonary/Chest: Normal respiratory effort and breath sounds. No wheezes or rales. Abdominal: Soft, tender, distended. Normoactive bowel sounds. No guarding or rebound present. Musculoskeletal: No lower extremity edema. Neurological: AAO to person, place, and time; moving all extremities spontaneously Skin: Skin is warm and dry. Psychiatric: Mood is anxious and affect normal. Lab/Radiology/Diagnostic Review: All pertinent labs and imaging reviewed. Assessment/Plan Eriberto Chau is a 33 y.o. 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 #Acute on Chronic Back pain #Acute on Chronic Abd pain Pt has a hx of aortic dissection that has needed a repair twice, putting him at high risk for another repair. He also has hx of kidney stone, stating that the last time he had a pain. Having diffuse abd and back pain but is worse in LLQ/flank/groin area. Pt states that only made better w opiate pain meds. DDx is abd aorta dissection, constipation w flatulence, kidney crystals, syphilis, and neuropathic from lumbar drain. CTAP demonstrated stability of aneurism, which reduces the chances of thisbeing AA dissection. Given hx of vitiligo from childhood there is a possibility of an autoimmune component creating a vasculitis, which would also explain the young age that this pt had an aortic dissection. Rheum is following the pt and doesn't think that the issue is mesenteric ischemia. Recs on other work up that have come back so far have been negative. Could still have some inflammatory/rheum component but now most likely is either psychogenic, IBS-C, or post-surgical pain. Pt has considerable hx of mental health issues including insomnia after his first aortic dissection. He has reported feeling anxious about if it will happen again. Mood disorders can cause abdominal pain either through issues with the gut microbiome from stress or functional issues (1). This is independent of IBS,which can either be a sequelae of the mood disorder or it's own issue. IBS-C can cause crampy or sharp pain that is incredibly bothersome to the pt (2). Finally, pt has underwent numerous procedures over the last few months, some of which may be pinching or causing nerve issues. The back pain is now being described as shooting pain starting in lumbar region and heading down legs bilaterally. Pt is barely able to walk 2 blocks due to the pain and attributes it to he lumbar drain placed in that region. The nature of the pain seems neuropathic by description but hard to say what is the exact issue without better imaging. It is possible that he has spinal stenosis or there is still damage from the lumbar drain. -Senna docusate cont 2 tablets night and miralax 17g daily -cont to encourage PO fluid intake -SPEP, UPEP, ESR, CRP, RPR, T spot -MRIspine; admin valium once prior -Change to Acetaminophen 1,000 q6, Cyclobenzaprine 10mg q8PRN, Gabapentin 600mg q8PRN, Amitriptyline 25mg nightly -Start dicyclomine 20mg q6 PRN - Oxycodone 10mg PO PRN, but attempt to keep on the non-opiate management #HTN Has hx of AA dissection. Goal <120/80 -cont home amlodipine 10mg daily, hydral 50mg -switch to labetalol 400mg BID #Vit D def Level 9 on admission. -ergocholcalciferol 50K units per week for 8wks Aurelia Contreras B.A. Phase 3 Med Student (1) Oral SA, Quan MP, Lucille NJ, Kjellstr??m L, Feli H, Nette AN, Agr??us L. Abdominal pain is associated with anxiety and depression scores in a sample of the general adult population withno signs of organic gastrointestinal disease. Neurogastroenterol [place]. 2013 Jan;25(9):741-e576. doi: 10.1111/nmo.23751. Epub 2012October 17. PMID: 64996023. (2)Gilberto ED, Tate CV, Cristine BM, Alesha WD. Presentation and Characteristics of Abdominal Pain Vary by Irritable Bowel Syndrome Subtype: Results of a Nationwide Population-Based Study. Am J Gastroenterol. 2020 Jun;115(2):294-301. doi: 10.66046/ajg.[id number]. PMID: 93427724; PMCID: [id number]. (3) Cosigned by Karine Louis MD at 09/08/2023 4:05 PM CDT Associated attestation - Karine Louis MD - 09/08/2023 4:05 PM CDT I have seen and examined Mr. Chau on 09/08/2023 with LIANG Contreras and the team. This note is for educational purposes. * Plan of Care - Josie Boudreaux RN - 09/08/2023 10:49 AM CDT Per Medical Chart/Rounds/IDR: The patient not medically ready for discharge and will possibly have MRI of the spine. ADD: 09/12/2023 Plan & referrals made/in place: No referrals placed at this time Support following discharge: Meron [id number]-[phone] Transportation: Family to provide transportation F/U Appointments: None at this time Patient's Identified Problem/Goal Problem: Ensure acute medical needs are met and that patient has a safe discharge plan. Goal: Secure a discharge plan that patient/family are agreeable with and ensure patient has continuum of care. Patient and/or family are agreeable with plan. telecommunications project manager will continue to follow and assist with discharge planning as needed. If any further discharge needs arise, please contact the covering pillowcase cutter. * Plan of Care - Rolando Bradley RN - 09/07/2023 7:52 PM CDT Problem: Discharge Planning Goal: Understanding discharge needs will improve Outcome: Progressing Problem: Activity Goal: Risk for activity intolerance and fatigue will decrease Outcome: Progressing Goal: Ability to tolerate increased activity will improve Outcome: Progressing Goal: Ability to avoid complications of mobility impairment will improve Outcome: Progressing Problem: Communication Impairment Goal: Ability to express needs and understand communication Outcome: Progressing Problem: Coping Goal: Verbalization of decreased anxiety will be supported Outcome: Progressing Goal: Able to verbalize concerns and demonstrate effective coping strategies Outcome: Progressing Goal: Kirti effectively with procedures resulting in improved understanding of illness/injury, pain/anxiety reduction Outcome: Progressing Goal: Ability to identify and develop effective coping behavior will improve Outcome: Progressing Problem: General Patient Education Goal: Knowledge of disease process, condition or treatment will be improved Outcome: Progressing Problem: Health Behavior Goal: Ability to state signs and symptoms to report to health care provider will improve Outcome: Progressing Goal: Ability to identify and alter actions that are detrimental to health will improve Outcome: Progressing Goal: Ability to identify and utilize available resources and services will improve Outcome: Progressing Goal: Compliance with prescribed regimen will improve Outcome: Progressing Problem: Nutritional Goal: Nutrient intake appropriate for improving, restoring or maintaining nutritional needs Outcome: Progressing Goal: Implement dietary regimen as ordered Outcome: Progressing Problem: Physical Regulation Goal: Will remain free from infection Outcome: Progressing Goal: Ability to maintain clinical measurements within normal limits will improve Outcome: Progressing Goal: Ability to maintain body temperature in the normal range will improve Outcome: Progressing Problem: Safety Goal: Free from injury or harm Outcome: Progressing Goal: Ability to maintain safety and efficiency with swallowing without signs of aspiration will improve Outcome: Progressing Problem: Role Relationship Goal: Ability to maintain a functional system of mutual support for each family member will improve Outcome: Progressing Problem: Medication Goal: Satisfaction with pain management medication regimen will improve Outcome: Progressing Clinical Goals for the Shift: normal vs and labs; safety and comfort measures; improved appetite and decreased nausea * Initial Assessments - Josie Boudreaux RN - 09/07/2023 2:41 PM CDT CM Initial Assessment Interview Note Information Obtained From: Patient (09/07/23 1354) Admission Source: Non Health Care Facility Point of Origin Impression: 33 year old male admitted for dissection of descending thoracic aorta. The patient has history of hypertension, ureteral stone and patent foramen ovale. Plan Includes: The plan includes to discharge patient home medically stable. CM to follow for discharge planning and referrals as needed. Primary Source of Transportation: Does the patient need discharge transport arranged?: No (Family to provide transportation) (09/07/23 1440) Health Insurance Coverage: [employer] Managed Medicaid Prescription Coverage: Yes Pharmacy: [facility]/pharmacy #[id number] - [place] [id number] [facility] [address] [address] Primary Care Provider: Carl Strickland MD--Verified Prior to Admission: Functional Status: Independent with ADLs Primary Caregiver: Self Support System: Spouse/Significant Other, Parent (Meron BlankenshipAwypn-Fboczn-[phone] and Geri AlejandreTxercaf-Dzfkspi-[phone]) Home Care Services: No Outpatient Services: No Durable Medical Equipment: Walker (wheeled) Living Arrangements: Spouse/significant other Type of Residence: Private residence Steps in home?: Yes, Outside of home Number of steps outside: 3 steps Medication management: Independent (Patient manages medications) (09/07/231434) SDOH: Transportation: Financial Resource: Housing: Utilities: Social Connections: Food Insecurity: Alcohol Use: PHQ Screening Potential discharge needs include: None Dialysis: None Behavioral Health Services: Behavioral Health Services: No (09/07/231434) Patient expects to be Discharged to: Private residence, (09/07/231434) Additional Information: The patient verified address and phone numbers on face sheet. No HH or DME needs prior to admission. CM role explained. Patient's Identified Problem/Goal Problem: Ensure acute medical [...] Collaboration with patient, MD, direct care nurse, Ear Specialist, and other members of the health care team to assure needed interventions completed. 2. Return patient to optimal level of self-care post discharge. 3. Inside Sales Consultant will follow for Discharge Planning - interventions as needed 4. Anticipated level of care at discharge 5. Planned Discharge Disposition Based on a comprehensive family assessment, assistance with instrumental activities of daily livingafter discharge will be provided by patient. Through the course of our work I determined that the family possesses the skill and ability to provide and monitor the care of the patient when he or she returns home. Family has the capacity to provide/monitor/arrange for the care of the patient. Finally, we determined that family has the knowledge of available resources and that combining them with their existing resources will suffice to sustain and care for the patient when he or she returns home. The treatment team is aware of this information. All are in agreement with the aftercare plan. Josie Boudreaux RN * Significant Event - Jonny Farris MD - 09/07/2023 12:27 PM CDT On further interview this morning, Mr. Chau provided additional history. He endorses night sweats, decreased appetite, chills, and 35 lbs of unintentional weight loss over the past 4 months since his EVAR. He additionally endorses blurry vision with red/painful eyes, dry eyes and dry mouth, headaches, jaw cramping with chewing, frequent nosebleeds, and increasing low back pain and stiffness (difficulty bending forward to tie shoes) for a long time. On initial history, he endorsed an episode of hematochezia several days ago, which he describes as dark red. He denied other symptoms including other joint pains/swelling/stiffness, rashes, aphthous ulcers, dysuria, and hematuria. He states that when his hands are exposed to cold they will turn red, but otherwise denies Raynaud's. He has had vtiligo for as long as he can remember, primarily affecting his hands, and says this has gotten worse lately. Mr. Chau endorses a family history of thoracic aortic dissection in his paternal grandfather, and vitiligo in his maternal grandmother. He additionally endorses a family history of diabetes (many family members), and is not sure if this is type 1 or type 2. He also does not know at what age his family members were diagnosed. He has traveled to [place] ([facility] and [facility]) three times in his life, but denies other international travel. He denies every being incarcerated. He denies recreational substance use. * Plan of Care - Dayami Olivarez RN - 09/07/2023 10:11 AM CDT Goals: Clinical Goals for the Shift: normal vs and labs; safety and comfort measures; improved appetite and decreased nausea Problem: Activity Goal: Risk for activity intolerance and fatigue will decrease Outcome: Progressing Goal: Ability to tolerate increased activity will improve Outcome: Progressing Goal: Ability to avoid complications of mobility impairment will improve Outcome: Progressing Problem: Communication Impairment Goal: Ability to express needs and understand communication Outcome: Progressing Problem: General Patient Education Goal: Knowledge of disease process, condition or treatment will be improved Outcome: Progressing * Medical Student - Aurelia Contreras B.A. - 09/07/2023 7:47 AM CDT Daily Progress Note Patient name: Eriberto Chau Admission date: 09/05/2023 Date: 09/07/2023 Subjective Interval history Needed PO opiates 2x for pain Bowel movement- no since Tuesday Pee- yes but still having sensation that not able to fully empty Laying in bed still. Says feels a 7/10 pain. No recent travel or incarceration. Does report falling/straining his back due to running after his dog. Also states that he's has a 35 lbs weight loss unintentionally for past 4 mo. He also has experienced blurry vision w dry eyes and dry mouth and jaw cramping. Has not had any other joint pain/swelling. He has had vtiligo that has recently gotten worse. He has a fhx of thoracic aortic dissectionand vitiligo. Plan ESR and CRP; UPEP and SPEP PRP T spot SI joint x ray Consult rheum Increase carvedilol to 50mg BID Miralax cont Objective Medications: Scheduled: acetaminophen, 1,000 mg, oral, Q8H amitriptyline, 25 mg, oral, Nightly amLODIPine, 10 mg, oral, Daily aspirin, 81 mg, oral, Daily carvediloL, 37.5 mg, oral, BID with meals (bkfst, dinner) enoxaparin, 40 mg, subcutaneous, Daily-2100 ergocalciferol, 50,000 Units, oral, Weekly gabapentin, 300 mg, oral, TID hydrALAZINE, 50 mg, oral, TID Lactated Ringer's, 500 mL, intravenous, Once lidocaine, 2 patch, transdermal, Daily QUEtiapine, 50 mg, oral, Nightly senna-docusate, 2 tablet, oral, Nightly sodium chloride 0.9%, 0.5-20 mL, intra-catheter, Q8H SUSAN sodium chloride 0.9%, 0.5-20 mL, intra-catheter, Q8H SUSAN Infusions: PRN: sodium chloride 0.9% Saline lock IV AND sodium chloride 0.9% AND sodium chloride 0.9% AND sodium chloride 0.9% cyclobenzaprine oxyCODONE polyethylene glycol sodium chloride 0.9% Vitals: 24hr Min/Max: Temp Min: 36.5 ??C (97.7 ??F) Max: 36.8 ??C (98.3 ??F) Pulse Min: 70 Max: 104 BP Min: 112/80 Max: 164/114 Resp Min: 9 Max: 22 SpO2 Min: 93 % Max: 100 % Most Recent: Vitals: 09/07/23 0500 BP: 144/99 Pulse: 86 Resp: 16 Temp: 36.8 ??C (98.3 ??F) SpO2: 94% Intake/Output Summary (Last 24 hours) at 09/07/2023 0751 Last data filed at 09/06/2023 1619 Gross per 24 hour Intake -- Output 175 ml Net -175 ml Physical Exam: Constitutional: Well-developed, well-nourished, and in no distress HEENT: Moist MM. Normal conjunctiva, no scleral icterus, EOMI. Neck: Supple, no jugular venous distension present or lymphadenopathy Cardiovascular: Normal rate, regular rhythm, S1/S2 normal. No murmurs or extra heart sounds. Pulmonary/Chest: Normal respiratory effort and breath sounds. No wheezes or rales. Abdominal: Soft, non-tender, non-distended. Normoactive bowel sounds. No guarding or rebound present. Musculoskeletal: No lower extremity edema. Neurological: AAO to person, place, and time; moving all extremities spontaneously Skin: Skin is warm and dry. Splotches of hypopigmentation on hands with some heading up into axilla Psychiatric: Mood and affect normal. Lab/Radiology/Diagnostic Review: All pertinent labs and imaging reviewed. Assessment/Plan Eriberto Chau is a 33 y.o. 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 #Acute on Chronic Back pain #Acute on Chronic Abd pain Pt has a hx of aortic dissection that has needed a repair twice, putting him at high risk for another repair. He also has hx of kidney stone, stating that the last time he had a pain. Having diffuse abd and back pain but is worse in LLQ/flank/groin area. Pt states that only made better w opiate pain meds. DDx is abd aorta dissection, constipation w flatulence, kidney crystals, syphilis, and neuropathic from lumbar drain. CTAP demonstrated stability of aneurism, which reduces the chances of thisbeing AA dissection. Given hx of vitiligo from childhood there is a possibility of an autoimmune component creating a vasculitis, which would also explain the young age that this pt had an aortic dissection. Vasculitis can also manifest as mesentaric vasculitis, causing acute colicky abd pain (1). -Senna docusate cont 2 tablets night and miralax 17g daily -cont to encourage PO fluid intake -SPEP, UPEP, ESR, CRP, RPR, T spot -Change to Acetaminophen 1,000 q6, Cyclobenzaprine 10mg q8PRN, Gabapentin 600mg q8PRN, Amitriptyline 25mg nightly - Oxycodone PO PRN, but attempt to keep on the non-opiate management #HTN Has hx of AA dissection. Goal <120/80 -cont home amlodipine 10mg daily, hydral 50mg -increase to carvedilol 50 BID #Vit D def Level 9 on admission. -ergocholcalciferol 50K units per week for 8wks Aurelia Contreras B.A. Phase 3 (1) https://www.ncbi.nlm.nih.gov/books/FIK337295/#:~:text=Immunoglobulin%2DA%20Vascu litis&text=A cute%20onset%2C%20colicky%20abdominal%20pain,can%20occur%20in%20these%20patients . Cosigned by Jonny Farris MD at 09/13/2023 2:17 PM CDT * Plan of Care - Rolando Bradley RN - 09/06/2023 7:40 PM CDT Problem: Discharge Planning Goal: Understanding discharge needs will improve Outcome: Progressing Problem: Activity Goal: Risk for activity intolerance and fatigue will decrease Outcome: Progressing Goal: Ability to tolerate increased activity will improve Outcome: Progressing Goal: Ability to avoid complications of mobility impairment will improve Outcome: Progressing Problem: Communication Impairment Goal: Ability to express needs and understand communication Outcome: Progressing Problem: Coping Goal: Verbalization of decreased anxiety will be supported Outcome: Progressing Goal: Able to verbalize concerns and demonstrate effective coping strategies Outcome: Progressing Goal: Kirti effectively with procedures resulting in improved understanding of illness/injury, pain/anxiety reduction Outcome: Progressing Goal: Ability to identify and develop effective coping behavior will improve Outcome: Progressing Problem: General Patient Education Goal: Knowledge of disease process, condition or treatment will be improved Outcome: Progressing Problem: Health Behavior Goal: Ability to state signs and symptoms to report to health care provider will improve Outcome: Progressing Goal: Ability to identify and alter actions that are detrimental to health will improve Outcome: Progressing Goal: Ability to identify and utilize available resources and services will improve Outcome: Progressing Goal: Compliance with prescribed regimen will improve Outcome: Progressing Problem: Nutritional Goal: Nutrient intake appropriate for improving, restoring or maintaining nutritional needs Outcome: Progressing Goal: Implement dietary regimen as ordered Outcome: Progressing Problem: Physical Regulation Goal: Will remain free from infection Outcome: Progressing Goal: Ability to maintain clinical measurements within normal limits will improve Outcome: Progressing Goal: Ability to maintain body temperature in the normal range will improve Outcome: Progressing Problem: Role Relationship Goal: Ability to maintain a functional system of mutual support for each family member will improve Outcome: Progressing Problem: Safety Goal: Free from injury or harm Outcome: Progressing Goal: Ability to maintain safety and efficiency with swallowing without signs of aspiration will improve Outcome: Progressing Problem: Sensory Goal: General experience of comfort will improve Outcome: Progressing Problem: Self-Care Goal: Ability to participate in self-care as condition permits will improve Outcome: Progressing Problem: Tissue Perfusion Goal: Adequacy of tissue perfusion will improve Outcome: Progressing * Medical Student - Aurelia Contreras B.A. - 09/06/2023 4:57 PM CDT INTERNAL MEDICINE ADMISSION HISTORY AND PHYSICAL Date: 09/06/23 CARE TEAM Patient: Eriberto Chau Primary Care Physician: Carl Strickland MD Room: [facility] ED4-03/ED4-03 Attending Physician: Dr. Ro Louis SUBJECTIVE CHIEF COMPLAINT: Chief Complaint Patient presents with Abdominal Pain Back Pain Black or Bloody Stool Vomiting HISTORY OF PRESENT ILLNESS: Eriberto Chau is a 33 y.o. male with a hx of HTN, chronic back pain, and Type B Aortic Disection s/p endovascular repair in 04/2023 and second repair (TEVAR) May 2023 c/b pseudoaneurysm, and Kidney stone who presented for severe abd/back/chest pain and vomiting. Pt arrived to [place] ED w 03/08 abd pain since yesterday am including back pain, vomiting, and bloody stool 1 hr ago. 12/06 chest pain. Sxs began following dissection repair but acutely worsened yesterday morning as soon as he woke up. Has vomited (nonbloody and nonbillious) multiple times yesterdayand one instance of stool w dark red blood (1-2tbs) today. Reports fevers and chills. Pt had recent admission w similar concern and multiple recent admissions for abd/back pain. Evaluated by pain management w no acute concerns for imaging changes. Recs meloxicam 50mg and [id number]. Pt reports that he is taking. Denied recent drug use. States that he does not take NSAIDs due to concerns about BP (inculdign meloxicam), janey use of ASA. Only oxy and dilaudid help pain. Seen pain management in past and next appt 09/26. In the ED, vitals were HTN (160s). Was distressed, clutching R side abdomen. Sig TTP on L side wo obvious distension. Due to prior hx, most worried about recurrence or progression. Considered aortoenteric fistula w recent surgeries along w IBD, constipation, hemorrhoids, infection (cholecystitis w N/V but wrong pain location). Gave esmolol for impulse control w CTA dissection protocol to ro dissection progression briefly. Developed transient hypoxemia overnight (09/05 1:20am) so placed on 2L NC. Started IV 1mg hydromorphone. Labs notable for bicarb of 20 (AG 17), Ca11, Pr 10.1, ALP 131, WBC 12.[address]B [address] A/P unchaged thoracoabdominal aortic dissection status post endovascular aortic repair. Persistent filling of false lumen aneurysmal dilation of distal descending thoracic aorta. No acute change from prior study dated 08/03/23. 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 Distended gallbladder wo wall thickening or stranding and increased stool burden. Transitioned in care to hospitalist. On their exam he had diffuse exquisite abd tenderness to light and deep palpation (doesnot exhibit the same response when a stethoscope is pressed on abdomen). Tenderness in back along spinous process and paraspinal muscles. They restarted home pain regimen (gabapentin and amitriptyline) and cont ASA given presence of endovascular graft. They also resumed antihypertensives (amlodipine 10, coreg 37.5, hydralazine 50 TID). Held oral iron. He was groaning and writhing in bed prior to arriving in the room. Hx was confirmed w pt and his mom. Main concern is his pain. Experiencing back pain with the abd pain. Back pain feels more intense than his chronic pain from L4-L5 pain post lumbar drain. He stated that the abd pain shifts when he moves. While laying on his back he stated that the pain was in the LLQ heading into L groin. Also has chest pain that he says feels like pressure, radiating to the other side of the chest and to the back but not into the shoulders or down the left arm. Says his chest pain feels better when he bringshis arms in and his abd pain/back pain feels better when he crunches into the position. Pt began to cry from the pain during the Hx and exam. Pt also noted that he felt like he was having trouble urinating, he felt like he wasn't able to completely empty. Mom confirmed that he has had repeated episodes of this level of pain since April. Pt said I wanted to come in because the last time I had pain this bad it ended up being a kidney stone REVIEW OF SYSTEMS: All other systems were reviewed and are negative except as noted above in the HPI. PAST MEDICAL HISTORY Past Medical History: Diagnosis Date Hypertension Kidney stones Back pain at L4-5- controlled w flexeril 10mg TID PRN, Gabapentin 300mg TID, and oxy 5mg q4 prn Kidney stone- stenting PFO (patent foramen ovale) Pseudoaneurysm following procedure Intrarenal abd aortic aneurysm and dissection wo rupture Polysubstance abuse Moderate malnutrition Dissection of abd aorta HTN Mood disorder- depression vs bipolar per OSH ED documentation 2015 PAST SURGICAL HISTORY Past Surgical History: Procedure Laterality Date ABDOMINAL AORTIC ANEURYSM REPAIR ALLERGIES AND DRUG REACTIONS Allergies Allergen Reactions Lisinopril Angioedema Amoxicillin Hives HOME MEDICATIONS HOME MEDICATIONS : amitriptyline (ELAVIL) 25 mg tablet amLODIPine (NORVASC) 10 mg tablet aspirin 81 mg chewable tablet capsaicin (ZOSTRIX) 0.025 % cream carvediloL (COREG) 12.5 mg tablet cyclobenzaprine (FLEXERIL) 10 mg tablet ferrous sulfate 325 mg (65 mg of elemental iron) tablet gabapentin (NEURONTIN) 300 mg capsule hydrALAZINE (APRESOLINE) 50 mg tablet meloxicam (MOBIC) 15 mg tablet ondansetron ODT (ZOFRAN-ODT) 4 mg disintegrating tablet QUEtiapine (SEROquel) 50 mg tablet senna-docusate (PERICOLACE) 8.6-50 mg CURRENT FACILITY-ADMINISTERED MEDICATIONS Scheduled Medications: amitriptyline, 25 mg, oral, Nightly amLODIPine, 10 mg, oral, Daily aspirin, 81 mg, oral, Daily carvediloL, 37.5 mg, oral, BID with meals (bkfst, dinner) gabapentin, 300 mg, oral, TID hydrALAZINE, 50 mg, oral, TID lidocaine, 2 patch, transdermal, Daily QUEtiapine, 50 mg, oral, Nightly senna-docusate, 2 tablet, oral, Nightly PRN Medications: cyclobenzaprine, 10 mg, 10 mg at 09/06/23 1118 oxyCODONE, 10 mg, 10 mg at 09/06/23 1521 FAMILY HISTORY No family history on file. SOCIAL HISTORY Social History Tobacco Use Smoking status: Never Smokeless tobacco: Never Substance and Sexual Activity Drug use: Not Currently Sexual activity: Not on file Alcohol Use: Not At Risk (07/04/2023) AUDIT-C Frequency of Alcohol Consumption: Never Average Number of Drinks: Patient does not drink Frequency of Binge Drinking: Never OBJECTIVE VITALS Vitals: 09/06/23 1445 BP: 138/87 Pulse: 94 Resp: 16 Temp: SpO2: 99% Arrival Vitals [09/05/23 2247] Temp 36.8 ??C (98.3 ??F) Pulse 107 Resp 18 BP (!) 169/120 SpO2 96 % Temp src Oral Heart Rate Source Patient Position BP Location FiO2 (%) 24hr Min/Max: Temp Min: 36.8 ??C (98.3 ??F) Max: 36.8 ??C (98.3 ??F) Pulse Min: 69 Max: 107 BP Min: 94/69 Max: 169/120 Resp Min: 8 Max: 22 SpO2 Min: 88 % Max: 100 % Intake/Output Summary (Last 24 hours) at 09/06/2023 1658 Last data filed at 09/06/2023 1619 Gross per 24 hour Intake -- Output 175 ml Net -175 ml PHYSICAL EXAM Constitutional: Well-developed, well-nourished, and in distress HEENT: Moist MM. Normal conjunctiva, no scleral icterus, EOMI. Neck: Supple, no jugular venous distension present or lymphadenopathy Cardiovascular: Tachycardic, regular rhythm, S1/S2 normal. No murmurs or extra heart sounds. Pulmonary/Chest: Normal respiratory effort and breath sounds. No wheezes or rales. Abdominal: While listening to abd with stethescope pt was not responding in pain, attempted light pressure too; when palpating with hands pt had significant pain was mild palpation Musculoskeletal: No lower extremity edema. Chest pain made worse on palpation. Pt reported significant pain while helping his role over to exam back. Tender upon palpation of spinus and paraspinus process in lower back. Attempted CVA tenderness but unable to differentiate between MSK and CVA tenderness Neurological: AAO to person, place, and time; moving all extremities spontaneously Skin: Skin is warm and dry. Psychiatric: Mood and affect normal. LABS Low vit D- 9 UA reflex to micro but no Cx No BCx yet (09/05 11:15am) BMP BUN 27 Cr 1.4- mildly elevated CBC Recent Labs Lab Units 09/06/23 0008 WBC K/cumm 12.3* HEMOGLOBIN g/dL 15.0 HEMATOCRIT % 45.7 PLATELETS K/cumm 337 NEUTROS PCT % 83.1 LYMPHS PCT % 9.8 MONOS PCT % 5.8 EOS PCT % 0.2 Chem Recent Labs Lab Units 09/06/23 1115 SODIUM mmol/L 136 POTASSIUM PLASMA mmol/L 3.9 CHLORIDE mmol/L 100 CO2 mmol/L 24 ANIONGAP mmol/L 12 BUN SERUM mg/dL 22 CREATININE mg/dL 1.25 GLUCOSE mg/dL 98 CALCIUM mg/dL 9.8 LFTs Recent Labs Lab Units 09/06/23 0008 ALK PHOS Units/L 131* BILIRUBIN TOTAL mg/dL 0.6 TOTAL PROTEIN g/dL 10.1* ALT Units/L 19 AST Units/L 23 Coags Recent Labs Lab Units 09/06/23 0008 APTT sec 33 INR 1.08 Cardiac Enzymes No results found for: TROPONINT Urine Analysis Recent Labs Lab Units 09/06/23 0543 COLOR U Yellow CLARITY U Clear SPEC GRAV U >1.042* PH, URINE 6.5 PROTEIN UR QL 1+* GLUCOSE URQL Negative KETONES UR 1+* BLOOD UR Negative NITRITE UR Negative LEUKOCYTE ESTERASE UR Negative ABG OTHER STUDIES CTA Chest Abdomen Pelvis (Dissection Protocol CT) [...] chest abdomen and pelvis dated 08/23/2023. FINDINGS: Chest: No suspicious pulmonary nodules. No pleural effusion or pneumothorax. Mild bibasilar atelectasis. The largeairways are widely patent. There is no supra [...] common carotid origin. A left subclavian stent angle but unchanged in configuration widely patent. The arch vessels are all widely patent. There is unchanged filling of the false lumen of an aortic dissection within the distal thoracic or aorta beginning just above the diaphragmatic hiatus and extending to the level of the infrarenal abdominal aorta unchanged since prior study dated 08/03/2023. Abdomen/Pelvis: Abdominal aortic stenting with SMA arising from the stented portion. Celiac artery arising from the false lumen with severe narrowing proximally near its origin and widely patent distally, similar to prior. The right renal artery arises from the stented portion. The left renal artery arises from the true and false lumens unchanged since prior. The distal attachment site of the stent graft is in the infrarenal abdominal aorta just above the origin of theinferior mesenteric artery which remains patent. Dissection flap [...] thoracoabdominal aortic dissection status post endovascular aortic repair with residual filling of the false lumen. There is persistent filling of the false lumen aneurysmal dilatation of the distal descending thoracic aorta. No acute change from the prior study dated 2023. Visceral arteries remain widely patent. No acute change since prior to explain the patient's symptoms. 2. 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 Dictated by: Miguel Ventura MD, PHD CT Head WO Contrast Result Date: 08/23/2023 Narrative: EXAMINATION: CT head without contrast HISTORY: 33-year-old male with past medical history of thoracic aortic aneurysm status post repair presenting with nausea, vomiting, lightheadedness and foot pain. TECHNIQUE: CT of the head was performed with images acquired from skull base to vertexwithout intravenous contrast. COMPARISON: None Available. FINDINGS: Topogram demonstrates no lytic l esions or fractures. There is no acute intracranial hemorrhage. Ventricles are of normal size and morphology. No mass effect or midline shift is present. The hilliard-white matter differentiation is normal. The visualized portions of the orbits are normal. The visualized portions of the mastoids are normal. Moderate mucosal thickening of the right sphenoid sinus. No fractures are identified. Incidentally noted partially empty sella. Impression: No acute intracranial hemorrhage, large vessel territory infarction or mass effect. Dictated by: Marilia Macias MD, MPH The radiology attending physician has personally reviewed this study, and had reviewed and/or edited this written report and agrees with it. Electronically signed by: Veronica Hall M.D. CTA Chest Abdominal Aorta and Bilateral Iliofemoral Result Date: 08/23/2023 Narrative: EXAMINATION: CT ANGIOGRAPHY OF CHEST, ABDOMEN, PELVIS, AND LOWER EXTREMITIES WITH CONTRAST HISTORY: Prior aortic dissection status post endovascular repair of the thoracic and abdominal aorta, with back pain. TECHNIQUE: CT angiography of the chest, abdomen, pelvis, and lower extremities w as performed following the uneventful intravenous administration of 119 ml [id number]-[id number]. Vascular 3Dimages were generated on a dedicated workstation and also reviewed. COMPARISON: 08/03/2023 FINDINGS: VASCULAR FINDINGS: No intramural hematoma. A thoracic endovascular aortic repair proximal attachment site is just distal to the left common carotid origin. A left subclavian stent is angulated but unchanged in configuration, and widely patent. The arch vessels are all widely patent. There is unchanged filling of the false lumen of an aortic dissection within the distal thoracic aorta just above the diaphragmatic hiatus, extending to the level of the infrarenal abdominal aorta. Aneurysmal dilation of the abdominal aorta to a maximum of approximately 4.3 x 4.2 cm is unchanged. The celiac artery arises from the false lumen, with unchanged angulation and proximal narrowing but distal patency. The superior mesenteric and right renal arteries arise from the stented true lumen and are widely patent. The left renal artery arises likely from both the true and false lumens of the site of fenestra tion and is widely patent. The inferior mesenteric artery arises from the true lumen and is patent.The distal attachment site of the stent graft is in the infrarenal abdominal aorta just above the origin of the inferior mesenteric artery. The dissection flap propagates through the infrarenal abdominal aorta into the left common iliac artery, similar in configuration to the prior exam. Pelvic Vessels: R. Common iliac artery: no significant stenosis R. External iliac artery: no significant stenosis R. Internal iliac artery: no significant stenosis L. Common iliac artery: no significant stenosis L. External iliac artery: no significant stenosis L. Internal iliac artery: no significant stenosis Right Lower Extremity: R. Common femoral artery: no significant stenosis R. Profunda femoris artery: no significant stenosis R. Superficial femoral artery: no significant stenosis R. Popliteal artery: no significant stenosis R. Anterior tibial artery: no significant stenosis. Patent at least to the level of the ankle, with thready flow within the ankle and the dorsalis pedis R. Tibioperoneal trunk: no significant stenosis R. Posterior tibial artery: no significant stenosis R. Peroneal artery: no significant stenosis R. Dorsalis pedis artery: Reconstituted from the peroneal artery with thready flow. R. Plantar artery: no significant stenosis Left Lower Extremity: L. Common femoral artery: no significant stenosis. A 5 mm pseudoaneurysm with a narrow neck, on series 508 image 598, is unchanged. L. Profunda femoris artery: no significant stenosis L. Superficial femoral artery: no significant stenosis L. Popliteal artery: no significant stenosis L. Anterior tibial artery: Diminutive with nonopacification distally L. Tibioperoneal trunk: no significant stenosis L. Posterior tibial artery: no significant stenosis L. Peroneal artery: no significant stenosis L. Dorsalis pedis artery: Reconstituted from the peroneal artery with no significant stenosis L. Plantar artery: no significant stenosis NON-VASCULAR FINDINGS: No pleural effusion, pneumothorax, pneumonia, pulmonary edema, or suspicious pulmonary nodules. Scattered calcified granulomas. No supraclavicular, axillary, mediastinal,or hilar lymphadenopathy. No pulmonary embolism. Normal heart size without pericardial effusion. The esophagus is normal caliber. A cavernous hemangioma measuring 2 cm in segment 4A on series 508 image 234 is unchanged. No suspicious liver lesions or intrahepatic ductal dilation. The gallbladder and common bile duct are normal. The spleen, pancreas, adrenal glands are normal. Scattered simple bilateral renal cysts and small nonobstructing stones without hydronephrosis or masses. The urinary bladder, prostate gland and seminal vesicles are normal. Scattered colonic diverticula without diverticulitis, obstruction, or inflammation. The appendix is normal. Small bowel loops are normal caliber. No lymphadenopathy, free fluid, or free intraperitoneal air. No suspicious bone lesions. Impression: 1. Aorta: Unchanged thoracoabdominal aortic dissection status post endovascular aortic repair. Persistent filling of the false lumen and aneurysmal dilation of the distal descending thoracic aorta/juxtadiaphragmatic abdominal aorta. No acute change from the prior study to account for the patient's symptoms. 2. 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 3. 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 4. Unchanged left common femoral artery pseudoaneurysm with a narrow neck. Electronically signed by: Collins Wills M.D. ECG 12 lead Result Date: 08/23/2023 Narrative: Christine Gotti MD PhD 08/23/2023 8:39 AM ECG 12 lead Date/Time: 08/23/2023 8:36 AM Performed by: Christine Gotti MD PhD Authorized by: Christine Gotti MD PhD Rate: ECG rate: 75 ECG rate assessment: normal Rhythm: Rhythm: sinus rhythm Ectopy: Ectopy: none QRS: QRS axis: Normal Conduction: Conduction: normal T waves: T waves comment: Biphasic in II, III, aVF, V5, V6 Previous ECG: Previous ECG comparison: similar to previous 2023.07.26. Interpretation: Interpretation: No significant change ASSESSMENT AND PLAN Eriberto Chau is a 33 y.o. 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 #Acute on Chronic Back pain #Acute on Chronic Abd pain Pt has a hx of aortic dissection that has needed a repair twice, putting him at high risk for another repair. He also has hx of kidney stone, stating that the last time he had a pain. Having diffuse abd and back pain but is worse in LLQ/flank/groin area. Pt states that only made better w opiate pain meds. DDx is abd aorta dissection, constipation w flatulence, kidney crystals, syphilis, and neuropathic from lumbar drain. CTAP demonstrated stability of aneurism, which reduces the chances of thisbeing AA dissection. Spine MRI in May was negative for anatomical issues. No White count/fever/hemeissues. Normal lactate. Troponin is negative. Fluids were also given after initial round of labs which suggest a component of dehydration. Joseluis et Al demonstrates that lact of hematuria is not a r/o for kidney crystals and that it may be more clinically significant at that point (1). He's also at a higher risk with prior kidney stone. The contrast from the CTAP may have obscured visualizationof any crystals. His shifting pain while turning indicates that the pain may not be anatomically related. His amitriptyline and cyclobenzaprine are known causes of urinary retention, which mixes the picture of something or Uro causing his pain. Therefore, his most likely is constipation with flatulence, kidney crystals, and neuropathic pain from lumbar drain. -Senna docusate cont 2 tablets night -cont to encourage PO fluid intake -RPR -Cont Acetaminophen 1,000 q8, Cyclobenzaprine 10mg q8PRN, Gabapentin 300mg q8PRN, Amitriptyline 25mg nightly - Oxycodone PO PRN #HTN Has hx of AA dissection. Goal <120/80 -cont home amlodipine 10mg daily, hydral 50mg, carvedilol 37.5 #Vit D def Level 9 on admission. -ergocholcalciferol 50K units per week for 8wks. - Diet: Adult Diet Restricted; 2 GM Sodium - DVT PPX: levnox - Access:PIV - PT/OT: not needed - CODE STATUS: Prior EMERGENCY CONTACT Contact: Extended Emergency Contact Information Primary Emergency Contact: MERON BLANKENSHIP [facility] Mobile Relation: Mother Preferred language: Albanian Home Day Care Provider needed? No Secondary Emergency Contact: Geri Alejandre [email or web address] [facility] [place] Mobile Relation: Partner Home Day Care Provider needed? No Aurelia Contreras (1)Tio MCGARRY, Jericho RM, Mark Anthony L, Christi D, Brenton CL, Pham SE, Nola M. A Comparison ofUrolithiasis in the Presence and Absence of Microscopic Hematuria in the Emergency Department. WestJ Emerg Med. 2017 Dilan;18(4):779-775. doi: 10.5811/westjem.[id number]. Epub 2016October 11. PMID: [id number]; PMCID: [id number]. Cosigned by Karine Louis MD at 09/08/2023 4:04 PM CDT Associated attestation - Karine Louis MD - 09/08/2023 4:04 PM CDT I have seen and examined Mr. Chau on 09/06/2023 with LIANG Contreras and the team. This note is for educational purposes. * Significant Event - Clyde Nelson MD - 09/06/2023 9:35 AM CDT ED Hospitalist Event Note In my role as the ED hospitalist, I have examined the patient in the ER and reviewed their chart while they await an inpatient bed and team assignment. I discussed the care of this patient with the ER team. Eriberto Chau is a 33 y.o. patient with PMH obesity, Type B Aortic Dissection s/p endovascular repair 04/2023 and 05/2023, HTN, depression/?bipolar (per OSH ED documentation in 2015), multiple recentadmissions for abdominal/back pain who presents with recurrent abdominal and back pain with radiation down his legs. Also reports 1 episode of hematochezia a few hours ago when he was a home. He reports adherence to his medications but is largely unable to recall them without prompting; he further reports adherence to medications with prescriptions that several weeks ago. States that he does not take NSAIDs due to concerns that they would worsen his blood pressure (this includes previously prescribed meloxicam). Denies blood thinner/antiplatelet usage including aspirin (has a prescription for aspirin). States that only oxycodone and dilaudid help his pain. He has been seen by pain management in the past and has an appointment with pain management on 09/26. He has previously been evaluated by vascular surgery who did not suspect a postoperative complication as the etiology of his pain. He gestures towards his entire abdomen when asked to localize his pain. Pain is described as constant but he is unable to further characterize the pain. He reports that his back pain localizes primarily to the lower back, as before. Examination notable for diffuse exquisite abdominal tenderness to light and deep palpation (though he does not exhibit the same response when a stethoscope is pressed to the abdomen). He exhibits tenderness to palpation of the back along both the spinous processes and the paraspinal muscles. Vitals on presentation notable for mild tachycardia and marked hypertension (160s/120s), for which he was briefly on an esmolol drip. Developed transient hypoxemia overnight (09/05 1:20 AM), so placed on 2L NC by the ED. Note made of 1 mg IV hydromorphone administered at 00:09, 00:47, and 01:32. In the ED, labs notable for bicarb of 20 (w/AG 17), Ca 11, Protein 10.1, ALP 131, WBC 12.3, Hgb 15 (from 11.7 on 07/26). RVP negative. Lipase normal. CTA with unchanged vasculature and expected postoperative changes from endovascular dissection repair. Celiac trunk noted again to be narrowed at the origin but widely patent distally. A distended gallbladder without wall thickening or stranding was also noted. Stool burden increased throughout entire large bowel compared to prior imaging. Prior spine imaging did not yield an explanation for his back pain. A/P Will restart home pain regimen (including medications) for his now - gabapentin and amitriptyline. Holding Mobic due to reports of GI bleed (patient was not taking it regardless). Will continue aspirin given presence of endovascular graft. Plan to aggressively wean off parenteral opioids and limit overall opioid intake as able. Resume home antihypertensives - amlodipine 10, coreg 37.5 BID, hydralazine 50 TID. Given leukocytosis and tachycardia, will obtain blood cultures (though overall low suspicion of an infectious process). Will monitor for recurrent GI bleed. Holding TID iron supplementation as this is likely constipating him. Repeating BMP with an ionized Ca and check PTH/VitD/TSH to further assess hypercalcemia/metabolic acidosis. No bony lesions noted on imaging, but he does have evidence of prior granulomatous disease. Elevated protein is nonspecific but appears to have developed in early June 2023. Possibly component of hemoconcentration. Checking for HepB/C. HIV previously neg. May also suggest a smoldering infectious/inflammatory process. Perhaps related to hypercalcemia. Wean O2 as able. Please call if you have any questions or need any assistance before they get a bed and team assignment. Clyde Nelson MD * ED Procedure Note - Dalton Jones MD - 09/06/2023 7:20 AM CDT Associated Order(s): Critical Care Procedure Critical Care Performed by: Dalton Jones MD Authorized by: Dalton Jones MD Critical care provider statement: As reflected in the history, physical exam, orders, notes, and/or MDM, I was personally present while the patient was critically ill and provided critical care services for 35 minutes, excluding timeinvolved in separately billable procedures. Critical care was necessary to treat or prevent imminent or life- threatening deterioration of the following condition(s): unstable vital signs hypertensive crisis and aortic dissection/aneurysm Critical care was time spent by me providing the following: continuous telemetry, continuous pulse oximetry, interpretation of bedside monitors, imaging, and arterial/venous lab draws and serial bedside patient exams initiation and active titration of vasoactive medications acute pain control I provided emergent necessary critical care medicine services to this patient. I ordered and reviewed test results and/or imaging studies. I spent time discussing the management of this critically ill patient with consultants and the medical staff. I spent time discussing the management and therapeutic options for this critically ill patient with the patient themselves or with the appropriate designated surrogate decision-maker. I spent time documenting in the medical record. Dalton Jones MD 09/06/23 0723 documented in this encounter Plan of Treatment Pending Results Name Type Priority Associated Diagnoses Date /Time Lipase Lab STAT 09/06/2023 12: 08 AM CDT Scheduled Orders Name Type Priority Associated Diagnoses Orde r Schedule Lipase Lab STAT Once for 1 Occ urrences starting 09/06/2023 until 09/06/2023 documented as of this encounter Procedures Procedure Name Priority Date/Time Associated Diagnosis Comments EGFR Routine 09/08/2023 11:30 PM CDT CBC WITHOUT DIFFERENTIAL Routine 09/08/2023 11:30 PM CDT BASIC METABOLIC PANEL Routine 09/08/2023 11:30 PM CDT MRI SACRUM COCCYX WO CONTRAST IP Routine 09/08/2023 5:04 PM CDT MRI LUMBAR SPINE WO CONTRAST IP Routine 09/08/2023 5:04 PM CDT VOLUME AND PERIOD, URINE, 24 HOUR Timed 09/08/2023 3:00 PM CDT PROTEIN ELECTROPHORESIS, URINE, 24 HOUR RESULT Timed 09/08/2023 3:00 PM CDT IMMUNOFIXATION, URINE Timed 09/08/2023 3:00 PM CDT PROTEIN ELECTROPHORESIS, URINE, 24 HOUR WITH IMMUNOFIXATION Timed 09/08/2023 3:00 PM CDT EGFR Routine 09/07/2023 10:43 PM CDT BLASTOMYCES ANTIBODY, EIA, S Routine 09/07/2023 10:43 PM CDT ANTI-NEUTROPHILIC CYTOPLASMIC ANTIBODY (ANCA) WITH REFLEX TO MPO AND PR3 ABS Timed 09/07/2023 10:43 PM CDT CRYPTOCOCCAL ANTIGEN, SERUM Routine 09/07/2023 10:43 PM CDT CBC WITHOUT DIFFERENTIAL Routine 09/07/2023 10:43 PM CDT BASIC METABOLIC PANEL Routine 09/07/2023 10:43 PM CDT XR SACROILIAC JOINTS 3 OR MORE VIEWS IP Routine 09/07/2023 9:05 PM CDT RPR Routine 09/07/2023 3:14 PM CDT PROTEIN ELECTROPHORESIS, WITH REFLEX, SERUM Timed 09/07/2023 3:14 PM CDT T-SPOT.TB Routine 09/07/2023 12:49 PM CDT ERYTHROCYTE SEDIMENTATION RATE Routine 09/07/2023 12:49 PM CDT CRP (ACUTE PHASE) Routine 09/07/2023 12: 49 PM CDT EGFR Routine 09/06/2023 10:59 PM CDT CBC WITHOUT DIFFERENTIAL Routine 09/06/2023 10:59 PM CDT BASIC METABOLIC PANEL Routine 09/06/2023 10:59 PM CDT EGFR Routine 09/06/2023 11:15 AM CDT THYROID FUNCTION CASCADE Routine 09/06/2023 11:15 AM CDT CALCIUM, IONIZED Routine 09/06/2023 11:1 5 AM CDT HEPATITIS C ANTIBODY Routine 09/06/2023 11:15 AM CDT VITAMIN D 25 HYDROXY Routine 09/06/2023 11:15 AM CDT HEPATITIS B SURFACE ANTIGEN Routine 09/06/2023 11:15 AM CDT BLOOD CULTURE Routine 09/06/2023 11:15 AM CDT BLOOD CULTURE Routine 09/06/2023 11:15 AM CDT PTH Routine 09/06/2023 11:15 AM CDT BASIC METABOLIC PANEL Routine 09/06/2023 11:15 AM CDT MS CRITICAL CARE ILL/INJURED PATIENT INIT 30-74 MIN Routine 09/06/2023 7:20 AM CDT URINALYSIS AND REFLEX TO MICROSCOPIC AND CULTURE STAT 09/06/2023 5:43 AM CDT URINALYSIS, MICROSCOPIC ONLY STAT 09/06/2023 5:43 AM CDT SEPSIS LACTATE WITH REFLEX STAT 09/06/2023 3:07 AM CDT TROPONIN I HIGH-SENSITIVITY 2-HOUR Timed 09/06/2023 2:08 AM CDT CTA CHEST ABDOMEN PELVIS ED 09/06/2023 1:51 AM CDT RESPIRATORY PATHOGEN PANEL Routine 09/06/2023 12:12 AM CDT TROPONIN I HIGH-SENSITIVITY SERIES (BASELINE, 2HR, 4HR, 6HR) STAT 09/06/2023 12:08 AM CDT EGFR STAT 09/06/2023 12:08 AM CDT DIFFERENTIAL AUTO STAT 09/06/2023 12: 08 AM CDT CBC WITH AUTO DIFFERENTIAL STAT 09/06/2023 12:08 AM CDT APTT STAT 09/06/2023 12:08 AM CDT PROTIME-INR STAT 09/06/2023 12:08 AM CDT TYPE AND SCREEN STAT 09/06/2023 12:08 AM CDT LIPASE STAT 09/06/2023 12:08 AM CDT COMPREHENSIVE METABOLIC PANEL STAT 09/06/2023 12:08 AM CDT documented in this encounter Results * eGFR (09/08/2023 11:30 PM CDT) eGFR 81 >=60 mL/min/1. 73 m2 Comment: Interpretive Data [...] interpretive data was last reviewed 2021. Blood 09/08/2023 11:3 0 PM CDT 09/08/2023 11:57 PM CDT Ronald Dimas MD LAB BLOOD ORDERABLES Final Result [facility] [place] [address] * (ABNORMAL) CBC without differential (09/08/2023 11:30 PM CDT) WBC 7.0 3.8 - 9.9 K/cumm Hgb 12.2(L) 13.0 - 17.5 g/dL [facility] Hct 37.7(L) 38.9 - 50.3 % [facility] Plt 283 150 - 400 K/cumm [facility] MPV 9.3 9.1 - 12.3 fL [facility] RBC 4.30 4.30 - 5.80 M/cumm [facility] MCV 87.7 81.3 - 96.4 fL [facility] MCH 28.4 27.1 - 33.3 pg [facility] MCHC 32.4 32.3 - 35.7 g/dL [facility] RDW CV 15.6(H) 11.1 - 14.9 % [facility] RDW SD 49.6(H) 35.7 - 48.1 fL [facility] NRBC abs 0.00 0.00 - 0.01 K/cumm [facility] Blood 09/08/2023 11:3 0 PM CDT 09/08/2023 11:58 PM CDT Ronald Dimas MD LAB BLOOD ORDERABLES Final Result Performing Organization Address City/[facility]/ZIP Co de Phone Number [facility] [place] [address] * (ABNORMAL) Basic metabolic panel (09/08/2023 11:30 PM CDT) Sodium 137 135 - 145 mmol/L Potassium, pl 3.6 3.3 - 4.9 mmol/L [facility] Chloride 101 97 - 110 mmol/L [facility] CO2 25 22 - 32 mmol/L [facility] Anion gap 11 2 - 15 mmol/L [facility] BUN 26(H) 6 - 25 mg/dL [facility] Creatinine 1.22 0.80 - 1.30 mg/dL [facility] Glucose 114 70 - 199 mg/dL [facility] Comment: Interpretive Data Fasting glucose >/= [...] interpretive data was last revised 2022. Calcium 9.3 8.5 - 10.3 mg/dL [facility] Blood 09/08/2023 11:3 0 PM CDT 09/08/2023 11:57 PM CDT us Ronald Dimas MD LAB BLOOD ORDERABLES Final Result [facility] [place] [address] * MRI Sacrum Coccyx WO Contrast (09/08/2023 5:04 PM CDT) Anatomical Region Laterality Modality Pelvis N/A Magnetic Resonan ce 09/09/2023 9:39 AM CDT Impressions 09/09/2023 9:59 AM CDT 1. ??Normal MRI without evidence of sacroiliitis. Dictated by: Bucky Fair MD The radiology attending physician has personally reviewed this study, and had reviewed and/or edited this written report and agrees with it. Electronically signed by: Renard Jackson M.D. Narrative 09/09/2023 9:59 AM CDT EXAMINATION: MRI SACRUM COCCYX WO CONTRAST HISTORY: ??Low back pain and stiffness. ??Concern for inflammatory arthritis/sacroiliitis. FINDINGS: Comparison radiographs 09/07/2023. ??Multiplanar, multisequence MR examination of the pelvis with specific attention to the sacrum and sacroiliac joints was performed with a multi-coil array. Normal sacroiliac joints without ankylosis, erosion, edema, or sclerosis. ??Unremarkable appearance of the lumbosacral plexus. The marrow [...] and gluteal tendons and musculature are normal. The piriformis muscles are symmetric. The sciatic nerves are normal in course and morphology. The hamstring origins are normal. There is no evidence of bursitis. Limited evaluation of the pelvis is normal. Procedure Note Renard Jackson MD - 09/09/2023 EXAMINATION: MRI SACRUM COCCYX WO CONTRAST HISTORY: Low back pain and stiffness. Concern for inflammatory arthritis/sacroiliitis. FINDINGS: Comparison radiographs 09/07/2023. Multiplanar, [...] and gluteal tendons and musculature are normal. The piriformis muscles are symmetric. The sciatic nerves are normal in course and morphology. The hamstring origins are normal. There is no evidence of bursitis. Limited evaluation of the pelvis is normal. IMPRESSION: 1. Normal MRI without evidence of sacroiliitis. Dictated by: Bucky Fair MD The radiology attending physician has personally reviewed this study, and had reviewed and/or edited this written report and agrees with it. Electronically signed by: Renard Jackson M.D. us Ronald Dimas MD IMG MRI PROCEDURES Final Re sult * MRI Lumbar Spine WO Contrast (09/08/2023 5:04 PM CDT) Anatomical Region Laterality Modality Spine N/A Magnetic Resonan ce 09/09/2023 10:3 5 AM CDT Impressions 09/09/2023 2:01 PM CDT Unremarkable MRI lumbar spine. Dictated by: Marlon Alberto MD The radiology attending physician has personally reviewed this study, and had reviewed and/or edited this written report and agrees with it. Electronically signed by: Gus Su MD Narrative 09/09/2023 2:01 PM CDT EXAMINATION: Magnetic resonance imaging (MRI) of the [...] stenosis. There is no spinal canal stenosis. Procedure Note Gus Su MD - 09/09/2023 EXAMINATION: Magnetic resonance imaging (MRI) of the [...] canal stenosis. IMPRESSION: Unremarkable MRI lumbar spine. Dictated by: Marlon Alberto MD The radiology attending physician has personally reviewed this study, and had reviewed and/or edited this written report and agrees with it. Electronically signed by: Gus Su MD Ronald Dimas MD IMG MRI PROCEDURES Final Re sult * Immunofixation, urine (09/08/2023 3:00 PM CDT) Pathologist [facility] Immunofixation, Ur Please see comment Comment: NO PARAPROTEIN DETECTED Reviewed and signed by Ag Page MD, PhD 09/12/2023 Urine 09/08/2023 3:00 PM CDT 09/08/2023 3:54 PM CDT Ronald Dimas MD LAB URINE ORDERABLES Final Result [facility] [place] [address] * Volume and period, urine, 24 hour (09/08/2023 3:00 PM CDT) Pathologist [facility] Volume, ur 850 mL Period, Urine Collection 1,440 min [facility] Urine 09/08/2023 3:00 PM CDT 09/08/2023 3:54 PM CDT Ronald Dimas MD LAB URINE ORDERABLES Final Result Performing Organization Address [facility] Co de Phone Number [facility] [place] [address] * (ABNORMAL) Protein electrophoresis, urine, 24 hour (09/08/2023 3:00 PM CDT) [facility] Protein, ur, quant 20.5 mg/dL Comment:No reference range e stablished. Albumin, Ur 100.0 % [facility] Comment:No reference range e stablished. Alpha-1 globulin, Ur No Protein Visible % [facility] Comment:No reference range e stablished. Alpha-2 globulin, Ur No Protein Visible % [facility] Comment:No reference range e stablished. Beta globulin, Ur No Protein Visible % [facility] Comment:No reference range e stablished. Gamma globulin, Ur No Protein Visible % [facility] Comment:No reference range e stablished. UPEP interp Please see comment [facility] Comment: No apparent monoclonal peak See immunofixation for further information Urine concentrated Reviewed and signed by Ag Page MD, PhD 09/12/2023 Protein, 24 hr, ur 174(H) 1 - 150 mg/24H [facility] Urine 09/08/2023 3:00 PM CDT 09/08/2023 3:54 PM CDT Ronald Dimas MD LAB URINE ORDERABLES Final Result Performing Organization Address [facility]/ZIP Co de Phone Number [facility] [place] [address] * eGFR (09/07/2023 10:43 PM CDT) [facility] eGFR >90 >=60 mL/min/1. 73 m2 Comment: [...] interpretive data was last reviewed 2021. Blood 09/07/2023 10:4 3 PM CDT 09/07/2023 10:56 PM CDT us Ronald Dimas MD LAB BLOOD ORDERABLES Final Result Performing Organization Address City/State/ZIP Co pr Phone Number [facility] [place] [address] * Cryptococcal Antigen, Serum Blood (09/07/2023 10:43 PM CDT) [facility] Cryptococcus ag, Serum Negative Negative Comment: The cryptococcal antigen test was performed using the [employer] CrAg Lateral Flow Assay. This assay is FDA cleared for serum and CSF specimens and for the detection of Cryptococcus neoformans and Cryptococcus gattii. If the result is positive, the specimen will be titered and reported from less than 1:5 to greater than or equal to 1:2560. This assay does not distinguish between C. neoformans and C. gattii. Testing hemolyzed serum samples may lead to false negatives. Current interpretive data last revised 2018. Blood 09/07/2023 10:4 3 PM CDT 09/07/2023 10:56 PM CDT Ronald Dimas MD LAB MICROBIOLOGY - GENERAL ORDERABLES Final Result Performing Organization Address [facility] de Phone Number [facility] [place] [address] * Blastomyces antibody, EIA, serum Blood (09/07/2023 10:43 PM CDT) Blastomyces Antibody Negative Negative [facility] Comment: A single negative result does not exclude the diagnosis of blastomycosis. ??Repeat testing on a new sample in 7-14 days if clinically indicated. Test Performed by: [facility] [id number] [place] [address] Third Rigger: Chris Perez M.D. Ph.D.; CLIA# [id number] Blood 09/07/2023 10:4 3 PM CDT 09/07/2023 11:33 PM CDT Ronald Dimas MD LAB MICROBIOLOGY - GENERAL ORDERABLES Final Result Performing Organization Address [facility] de Phone Number [facility] [place] [address] [facility] * Anti-Neutrophilic Cytoplasmic Antibody (ANCA) with Reflex to MPO and PR3 Abs (09/07/2023 10:43 PM CDT) ANCA Negative Blood 09/07/2023 10:4 3 PM CDT 09/07/2023 10:57 PM CDT Ronald Dimas MD LAB BLOOD ORDERABLES Final Result Performing Organization Address [facility] de Phone Number [facility] [place] [address] * (ABNORMAL) CBC without differential (09/07/2023 10:43 PM CDT) [facility] WBC 9.2 3.8 - 9.9 K/cumm Hgb 12.8(L) 13.0 - 17.5 g/dL [facility] Hct 37.7(L) 38.9 - 50.3 % [facility] Plt 277 150 - 400 K/cumm [facility] MPV 8.7(L) 9.1 - 12.3 fL [facility] RBC 4.42 4.30 - 5.80 M/cumm [facility] MCV 85.3 81.3 - 96.4 fL [facility] MCH 29.0 27.1 - 33.3 pg [facility] MCHC 34.0 32.3 - 35.7 g/dL [facility] RDW CV 15.2(H) 11.1 - 14.9 % [facility] RDW SD 47.7 35.7 - 48.1 fL [facility] NRBC abs 0.00 0.00 - 0.01 K/cumm [facility] Blood 09/07/2023 10:4 3 PM CDT 09/07/2023 10:57 PM CDT Ronald Dimas MD LAB BLOOD ORDERABLES Final Result Performing Organization Address [facility] Co de Phone Number [facility] [place] [address] * Basic metabolic panel (09/07/2023 10:43 PM CDT) [facility] Sodium 136 135 - 145 mmol/L Potassium, pl 3.7 3.3 - 4.9 mmol/L [facility] Chloride 104 97 - 110 mmol/L [facility] CO2 22 22 - 32 mmol/L [facility] Anion gap 10 2 - 15 mmol/L [facility] BUN 23 6 - 25 mg/dL [facility] Creatinine 1.01 0.80 - 1.30 mg/dL [facility] Glucose 99 70 - 199 mg/dL [facility] Comment: Interpretive Data Fasting glucose >/= [...] interpretive data was last revised 2022. Calcium 9.5 8.5 - 10.3 mg/dL [facility] Blood 09/07/2023 10:4 3 PM CDT 09/07/2023 10:56 PM CDT us Ronald Dimas MD LAB BLOOD ORDERABLES Final Result [facility] [place] [address] * XR Sacroiliac Joints 3 or More Views (09/07/2023 9:05 PM CDT) Anatomical Region Laterality Modality Pelvis, Body N/A Computed Radiogr aphy 09/08/2023 6:38 AM CDT Impressions 09/08/2023 6:38 AM CDT Normal radiograph of the sacroiliac joints. Electronically signed by: Renard Jackson M.D. Narrative 09/08/2023 6:38 AM CDT XR SACROILIAC JOINTS 3 OR MORE VIEWS HISTORY: ??Pelvic pain. FINDINGS: ??3 views of the sacroiliac joints are obtained and compared with 09/06/2023. The sacroiliac joint spaces are preserved. ??There is no erosion or sclerosis. ??Hip joint spaces and pubic symphysis are normal. Alignment and soft tissues are normal. Procedure Note Renard Jackson MD - 09/08/2023 XR SACROILIAC JOINTS 3 OR MORE VIEWS HISTORY: Pelvic pain. FINDINGS: 3 views of the sacroiliac joints are obtained and compared with 09/06/2023. The sacroiliac joint spaces are preserved. There is no erosion or sclerosis. Hip joint spaces and pubic symphysis are normal. Alignment and soft tissues are normal. IMPRESSION: Normal radiograph of the sacroiliac joints. Electronically signed by: Renard Jackson M.D. Ronald Dimas MD IMG XR PROCEDURES Final Res ult * RPR Blood (09/07/2023 3:14 PM CDT) [facility] RPR Nonreactive Nonreactive Blood 09/07/2023 3:14 PM CDT 09/07/2023 3:45 PM CDT Ronald Dimas MD LAB MICROBIOLOGY - GENERAL ORDERABLES Final Result [facility] [place] [address] * Protein electrophoresis with reflex, serum (09/07/2023 3:14 PM CDT) [facility] Protein, sr 8.2 6.2 - 8.2 g/dL Albumin 4.5 3.2 - 5.0 g/dL [facility] Alpha-1 globulin 0.3 0.2 - 0.4 g/dL [facility] Alpha-2 globulin 0.8 0.5 - 1.0 g/dL [facility] Beta-1 globulin 0.4 0.3 - 0.6 g/dL [facility] Beta-2 globulin 0.6 0.2 - 0.6 g/dL [facility] Gamma globulin 1.6 0.5 - 1.7 g/dL [facility] SPEP interp Please see comment [facility] Comment: No apparent monoclonal peak Reviewed and signed by Raj Jane MD 09/08/2023 Blood 09/07/2023 3:14 PM CDT 09/07/2023 3:45 PM CDT Ronald Dimas MD LAB BLOOD ORDERABLES Final Result [facility] [place] [address] * T-SPOT.TB Blood (09/07/2023 12:49 PM CDT) [facility] T-SPOT.TB Negative SeeBelow Comment: Normal Value: Negative A negative test result does not exclude the possibility of exposure to or infection with Mycobacterium tuberculosis (M. tuberculosis). ??Patients with recent exposure to TB infected individuals exhibiting a negative T-SPOT.TB result should be considered for retesting within 6 weeks or if other relevant clinical symptoms indicate. ??Results from T-SPOT.TB testing must be used in conjunction with each individual's epidemiological history, current medical status, and results of other diagnostic evaluations. ??The T-SPOT.TB test is qualitative and results are reported as positive, borderline or negative, given that the test controls perform as expected. In line with the Centers for Disease Control and Prevention's 2010 recommendation to report quantitative measurements alongside the qualitative result, the laboratory provides spot counts for informational purposes only. ??The T-SPOT.TB test should not be interpreted as a quantitative test. T-SPOT.TB Panel A Spot Count 0 [facility] T-SPOT.TB Panel B Spot Count 0 [facility] T-SPOT.TB Negative Control Passed [facility] T-SPOT.TB Positive Control Passed [facility] Comment: Test Performed at: [employer] [facility], [email or web address] [address] [place] [address] ??[id number] ? JUANITO MANUEL,PHD Blood 09/07/2023 12:4 9 PM CDT 09/07/2023 2:05 PM CDT Ronald Dimas MD LAB MICROBIOLOGY - GENERAL ORDERABLES Final Result Performing Organization Address City/[facility]/ZIP Co de Phone Number [place] [address] * CRP (acute phase) (09/07/2023 12:49 PM CDT) [facility] CRP 7.2 <=10.0 mg/L Blood 09/07/2023 12:4 9 PM CDT 09/07/2023 1:04 PM CDT Ronald Dimas MD LAB BLOOD ORDERABLES Final Result Performing Organization Address [facility] [place] [address] * (ABNORMAL) Erythrocyte sedimentation rate (09/07/2023 12:49 PM CDT) [facility] Erythrocyte sedimentation rate 43(H) 1 - 15 mm/hr Blood 09/07/2023 12:4 9 PM CDT 09/07/2023 1:04 PM CDT Ronald Dimas MD LAB BLOOD ORDERABLES Final Result Performing Organization Address [facility] [place] [address] * eGFR (09/06/2023 10:59 PM CDT) [facility] eGFR 69 >=60 mL/min/1. 73 m2 Comment: Interpretive Data [...] interpretive data was last reviewed 2021. Blood 09/06/2023 10:5 9 PM CDT 09/06/2023 11:12 PM CDT us Ronald Dimas MD LAB BLOOD ORDERABLES Final Result [facility] [place] [address] * (ABNORMAL) CBC without differential (09/06/2023 10:59 PM CDT) WBC 9.5 3.8 - 9.9 K/cumm Hgb 13.3 13.0 - 17.5 g/dL [facility] Hct 40.5 38.9 - 50.3 % [facility] Plt 303 150 - 400 K/cumm [facility] MPV 8.9(L) 9.1 - 12.3 fL [facility] RBC 4.64 4.30 - 5.80 M/cumm [facility] MCV 87.3 81.3 - 96.4 fL [facility] MCH 28.7 27.1 - 33.3 pg [facility] MCHC 32.8 32.3 - 35.7 g/dL [facility] RDW CV 15.8(H) 11.1 - 14.9 % [facility] RDW SD 50.0(H) 35.7 - 48.1 fL [facility] NRBC abs 0.00 0.00 - 0.01 K/cumm [facility] Blood 09/06/2023 10:5 9 PM CDT 09/06/2023 11:13 PM CDT Ronald Dimas MD LAB BLOOD ORDERABLES Final Result [facility] [place] [address] * (ABNORMAL) Basic metabolic panel (09/06/2023 10:59 PM CDT) [facility] Sodium 136 135 - 145 mmol/L Potassium, pl 3.7 3.3 - 4.9 mmol/L [facility] Chloride 101 97 - 110 mmol/L [facility] CO2 24 22 - 32 mmol/L [facility] Anion gap 11 2 - 15 mmol/L [facility] BUN 27(H) 6 - 25 mg/dL [facility] Creatinine 1.40(H) 0.80 - 1.30 mg/dL [facility] Glucose 101 70 - 199 mg/dL [facility] Comment: Interpretive Data Fasting glucose >/= [...] interpretive data was last revised 2022. Calcium 9.9 8.5 - 10.3 mg/dL [facility] Blood 09/06/2023 10:5 9 PM CDT 09/06/2023 11:12 PM CDT Ronald Dimas MD LAB BLOOD ORDERABLES Final Result Performing Organization Address City/[facility]/ZIP Co de Phone Number [facility] [place] [address] * eGFR (09/06/2023 11:15 AM CDT) eGFR 79 >=60 mL/min/1. 73 m2 Comment: Interpretive Data [...] interpretive data was last reviewed 2021. Blood 09/06/2023 11:1 5 AM CDT 09/06/2023 11:38 AM CDT us Clyde Nelson MD LAB BLOOD ORDERABLES Final Resu lt [facility] [place] [address] * Thyroid Function Richardson (09/06/2023 11:15 AM CDT) TSH 0.64 0.30 - 4.20 mcIUnit/mL Blood 09/06/2023 11:1 5 AM CDT 09/06/2023 11:34 AM CDT us Clyde Nelson MD LAB BLOOD ORDERABLES Final Resu lt Performing Organization Address City/State/[facility] Co de Phone Number [facility] [place] [address] * Blood culture Blood (09/06/2023 11:15 AM CDT) Report Final Report: No growth Blood 09/06/2023 11:1 5 AM CDT 09/06/2023 11:29 AM CDT Narrative [facility] - 09/10/2023 12:00 PM CDT Collection->Peripheral 1. ?Blood cultures are incubated for 4 days on a continuously monitored blood culture system. The first report of a negative culture is issued within 24 hours of receipt of the specimen in the laboratory. 2. ?Positive culture results are reported as soon as they are detected. 3. ?The most important factor for detection of microbes in the setting of bloodstream infection is the volume of blood submitted for culture. Failure to collect an optimal blood volume can result in false negative blood cultures. For pediatric patients, the recommended blood volume to collect is 1 mL of blood per year of patient age (up to 20 mL) per blood culture set. For adult patients, 20 mL of blood, divided equally between aerobic and anaerobic blood culture bottles, is recommended for each blood culture set. 4. ?For blood cultures with Gram-positive cocci, a rapid molecular test for organism identification may be performed using the [employer] Gram-Positive Blood Culture Assay. This assay detects microbial DNA in positive blood culture broth via hybridization of target DNA to capture oligonucleotides on a microarray. This assay has been cleared by the [place] Food and Drug Administration and its performance characteristics have been verified by the [facility]. 5. ?For questions about this culture, contact the Microbiology Laboratory at [phone]. Interpretive data was last revised on 2019. us Clyde Nelson MD LAB MICROBIOLOGY - GENERAL ORDE JESSICA Final Result Performing Organization Address City/[facility] Co de Phone Number [facility] [place] [address] * Blood culture Blood (09/06/2023 11:15 AM CDT) Report Final Report: No growth Blood 09/06/2023 11:1 5 AM CDT 09/06/2023 11:29 AM CDT Yulisa ERWIN - 09/10/2023 12:00 PM CDT From different site than #1 Collection->Peripheral 1. ?Blood cultures are incubated for 4 days on a continuously monitored blood culture system. The first report of a negative culture is issued within 24 hours of receipt of the specimen in the laboratory. 2. ?Positive culture results are reported as soon as they are detected. 3. ?The most important factor for detection of microbes in the setting of bloodstream infection is the volume of blood submitted for culture. Failure to collect an optimal blood volume can result in false negative blood cultures. For pediatric patients, the recommended blood volume to collect is 1 mL of blood per year of patient age (up to 20 mL) per blood culture set. For adult patients, 20 mL of blood, divided equally between aerobic and anaerobic blood culture bottles, is recommended for each blood culture set. 4. ?For blood cultures with Gram-positive cocci, a rapid molecular test for organism identification may be performed using the [employer] Gram-Positive Blood Culture Assay. This assay detects microbial DNA in positive blood culture broth via hybridization of target DNA to capture oligonucleotides on a microarray. This assay has been cleared by the [place] Food and Drug Administration and its performance characteristics have been verified by the [facility]. 5. ?For questions about this culture, contact the Microbiology Laboratory at [phone]. Interpretive data was last revised on 2019. us Clyde Nelson MD LAB MICROBIOLOGY - GENERAL ORDE JESSICA Final Result Performing Organization Address City/[facility] Co de Phone Number [facility] [place] [address] * Hepatitis B Surface Antigen Blood (09/06/2023 11:15 AM CDT) Pathologist [facility] HepBsAg Nonreactive Nonreactive Blood 09/06/2023 11:1 5 AM CDT 09/06/2023 11:34 AM CDT us Clyde Nelson MD LAB MICROBIOLOGY - GENERAL SHAUNA LOPEZ Final Result Performing Organization Address City/[facility] Co de Phone Number [facility] [place] [place] [address] * Hepatitis C antibody Blood (09/06/2023 11:15 AM CDT) [facility] Hep C Ab Nonreactive Nonreactive Comment:Antibodies to HCV no t detected. Does NOT exclude the possibility of recent exposure to HCV. Current interpretive data was last revised on 22 Blood 09/06/2023 11:1 5 AM CDT 09/06/2023 11:34 AM CDT Clyde Nelson MD LAB MICROBIOLOGY - GENERAL SHAUNA LOPEZ Edited Result - Final Performing Organization Address [facility] Co de Phone Number [facility] [place] [address] * PTH (09/06/2023 11:15 AM CDT) [facility] PTH 33 15 - 65 pg/mL Blood 09/06/2023 11:1 5 AM CDT 09/06/2023 11:34 AM CDT Clyde Nelson MD LAB BLOOD ORDERABLES Final Resu lt Performing Organization Address [facility] Co de Phone Number [facility] [place] [address] * (ABNORMAL) Vitamin D 25 hydroxy (09/06/2023 11:15 AM CDT) [facility] Vitamin D 25-OH 9(L) 30 - 80 ng/mL Blood 09/06/2023 11:1 5 AM CDT 09/06/2023 11:34 AM CDT Clyde Nelson MD LAB BLOOD ORDERABLES Final Resu lt Performing Organization Address City/[facility]/ZIP Co de Phone Number [facility] [place] [address] * Calcium, ionized (09/06/2023 11:15 AM CDT) [facility] Calcium, Ionized 4.88 4.50 - 5.10 mg/dL Blood 09/06/2023 11:1 5 AM CDT 09/06/2023 11:34 AM CDT Clyde Nelson MD LAB BLOOD ORDERABLES Final Resu lt Performing Organization Address [facility] Co de Phone Number [facility] [place] [address] * Basic metabolic panel (09/06/2023 11:15 AM CDT) [facility] Sodium 136 135 - 145 mmol/L Potassium, pl 3.9 3.3 - 4.9 mmol/L [facility] Chloride 100 97 - 110 mmol/L [facility] CO2 24 22 - 32 mmol/L [facility] Anion gap 12 2 - 15 mmol/L [facility] BUN 22 6 - 25 mg/dL [facility] Creatinine 1.25 0.80 - 1.30 mg/dL [facility] Glucose 98 70 - 199 mg/dL [facility] Comment: Interpretive Data Fasting glucose >/= [...] interpretive data was last revised 2022. Calcium 9.8 8.5 - 10.3 mg/dL [facility] Blood 09/06/2023 11:1 5 AM CDT 09/06/2023 11:34 AM CDT us Clyde Nelson MD LAB BLOOD ORDERABLES Final Resu lt [facility] [place] [address] * MS CRITICAL CARE ILL/INJURED PATIENT INIT 30-74 MIN (09/06/2023 7:20 AM CDT) Narrative Dalton Jones MD - 09/06/2023 7:20 AM CDT Dalton Jones MD ? 09/06/2023 ??7:23 AM Critical Care Performed by: Dalton Jones MD Authorized by: Dalton Jones MD ?? Critical care provider statement: As reflected in the history, physical exam, orders, notes, and/or MDM, I was personally present while the patient was critically ill and provided critical care services for 35 minutes, excluding time involved in separately billable procedures. ??Critical care was necessary to treat or prevent imminent or life-threatening deterioration of the following condition(s): ?? unstable vital signs ?? hypertensive crisis and aortic dissection/aneurysm ??Critical care was time spent by me providing the following: ? continuous telemetry, continuous pulse oximetry, interpretation of bedside monitors, imaging, and arterial/venous lab draws and serial bedside patient exams ?? initiation and active titration of vasoactive medications ?? acute pain control ?? I provided emergent necessary critical care medicine services to this patient. I ordered and reviewed test results and/or imaging studies. I spent time discussing the management of this critically ill patient with consultants and the medical staff. I spent time discussing the management and therapeutic options for this critically ill patient with the patient themselves or with the appropriate designated surrogate decision-maker. I spent time documenting in the medical record. Dalton Jones MD IN CLINIC/BEDSID E ORDERABLES Final Result * (ABNORMAL) Urinalysis, microscopic only (09/06/2023 5:43 AM CDT) WBC, ur 0-5 0 - 5 /HPF RBC, ur 0-2 0 - 2 /HPF [facility] Epithelial cells, squamous, ur 1-5 0 - 5 /HPF [facility] Bacteria, ur Trace(A) [facility] Mucous, ur Present(A) [facility] Hyaline casts, ur 21-50(A) 0 - 10 /LPF [facility] Culture Reflex Comment Reflex conditions for urine culture (WBC >10) not met. [facility] Urine 09/06/2023 5:43 AM CDT 09/06/2023 5:50 AM CDT Dalton Jones MD LAB URINE ORDERA BLES Final Result [facility] [place] [address] * (ABNORMAL) Urinalysis reflex to microscopic and culture Urine (09/06/2023 5:43 AM CDT) Color, ur Yellow Yellow Clarity, ur Clear Clear [facility] Specific gravity, ur >1.042(H) 1.003 - 1.030 [facility] pH, urine 6.5 [facility] Comment: Interpretive Data ? Urine pH is affected by diet, medications, systemic acid-base disturbances, and renal tubular function. ??pH may affect urinary stone formation. ??For example, urine pH below 6.0 may help reduce the tendency for calcium phosphate stones and pH greater than 6.0 may reduce the tendency for uric acid stone formation. Source: [employer] Current Interpretive Data was last revised on 2017 Protein, ur ql 1+(A) Negative [facility] Glucose, ur ql Negative Negative [facility] Ketones, ur 1+(A) Negative [facility] Bilirubin, ur Negative Negative [facility] Blood, ur Negative Negative [facility] Urobilinogen, ur <2.0 <2.0 mg/dL [facility] Nitrite, ur Negative Negative [facility] Leukocyte esterase, ur Negative Negative [facility] UA reflex comment Reflex to microscopic UA will be performed. [facility] Urine 09/06/2023 5:43 AM CDT 09/06/2023 5:50 AM CDT us Dalton Jones MD LAB MICROBIOLOGY - GENERAL ORDERABLES Final Result [facility] [place] [address] * Sepsis Lactate w/ Reflex (09/06/2023 3:07 AM CDT) Sepsis Lactate 1.0 0.7 - 2.0 mmol/L Blood 09/06/2023 3:07 AM CDT 09/06/2023 3:18 AM CDT us Marina Arias MD LAB BLOOD ORDERABLES F inal Result Performing Organization Address City/[facility] Co de Phone Number [facility] [place] [address] * Troponin I high-sensitivity 2-hour (09/06/2023 2:08 AM CDT) Trop I hs <4 <=35 ng/L Comment: Interpretive Data For further hscTnI resources including the diagnostic algorithm and an aid in interpretation, copy and paste this link: https://bjhlab.testcatalog.org/show/[email or web address] Current Interpretive Data last revised 2019. Trop I hs delta 0 ng/L [facility] Trop I hs interp Insignificant [facility] Blood 09/06/2023 2:08 AM CDT 09/06/2023 2:59 AM CDT us Dalton Jones MD LAB BLOOD ORDERA BLES Final Result [facility] [place] [address] * CTA Chest Abdomen Pelvis (Dissection Protocol CT) (09/06/2023 1:51 AM CDT) Anatomical Region Laterality Modality Body N/A Computed Tomogra phy 09/06/2023 4:29 AM CDT Impressions 09/06/2023 7:30 PM CDT 1. 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 No acute change since prior to explain the patient's symptoms. 2. 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 Dictated by: Leo Ventura MD, PHD The radiology attending physician has personally reviewed this study, and had reviewed and/or edited this written report and agrees with it. Electronically signed by: Buffy Chang M.D. Narrative 09/06/2023 7:30 PM CDT EXAMINATION: CT ANGIOGRAPHY OF THE CHEST, ABDOMEN AND PELVIS WITH AND WITHOUT CONTRAST HISTORY: 33-year-old man with history of prior aortic dissection status post endovascular repair of the thoracic and abdominal aorta present to the ED with 10/10 abdominal pain. TECHNIQUE: ??Computed tomographic images of the chest, abdomen and pelvis were acquired without and intravenous contrast using an angiographic protocol optimized for aortic dissection (aorta). ??The contrast enhanced transaxial images were obtained following the intravenous administration of 68 ml of nonionic contrast. Multiplanar reformatted images and three-dimensional images of the aorta and associated vasculature were obtained on the 3-D workstation and sent to the [employer] archival system. ?? COMPARISON: Comparison is made with prior CT angiography of the chest abdomen and pelvis dated 08/23/2023. FINDINGS: ?? No suspicious pulmonary nodules. ??No pleural effusion or pneumothorax. ??Mild bibasilar atelectasis. ??The large airways are widely patent. ??There is no supra clavicular, axillary, or mediastinal lymphadenopathy. ??There are scattered calcified granulomas. ??There is calcification of hilar lymph nodes with history of old granulomatous disease. ??The heart size is normal. ??No pericardial effusion. The esophagus is normal. There are postsurgical changes of thoracic endovascular aortic repair with proximal attachment site just distal to the left common carotid origin. ??A left subclavian stent angles but is unchanged in configuration widely patent. ??The arch vessels are all widely patent. There is unchanged filling of the false lumen of an aortic dissection within the distal thoracic or aorta beginning just above the diaphragmatic hiatus and extending to the level of the infrarenal abdominal aorta unchanged since prior study dated 08/03/2023. Aneurysmal dilation of the abdominal aorta to a maximum of approximately 4.3 cm is unchanged. Abdominal aortic stenting with SMA arising from the stented portion. Celiac artery arising from the false lumen with severe narrowing proximally near its origin and widely patent distally, similar to prior. The right renal artery arises from the stented portion. ??The left renal artery arises from the true and false lumens unchanged since prior. The distal attachment site of the stent graft is in the infrarenal abdominal aorta just above the origin of the inferior mesenteric artery which remains patent. ??Dissection flap propagates to the left common iliac artery, unchanged since prior. ??Both iliac arteries remain widely patent. ??There is no periaortic stranding. 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 The stomach and duodenal sweep are normal. ??No liver lesion. Gallbladder is distended without pericholecystic stranding. ??No intrahepatic or extrahepatic biliary ductal dilatation. ??The pancreas is normal. ??The spleen demonstrates granulomas consistent with history of old granulomatous disease. ??Bilateral adrenal glands are normal. ??Kidneys enhance symmetrically without hydroureteronephrosis. Small nonobstructive stones in the right kidney. Urinary bladder is normal. Large bowel is normal. ??The appendix is normal. ??The small bowel is normal without signs of bowel obstruction. ??No retroperitoneal or pelvic lymphadenopathy. ??No free intraperitoneal air or fluid. ??No body wall edema. No suspicious osseous lesions.. Procedure Note Buffy Chang MD - 09/06/2023 EXAMINATION: CT ANGIOGRAPHY OF THE CHEST, ABDOMEN [...] for aortic dissection (aorta). The contrast enhanced transaxial images were obtained following the intravenous administration of [...] abdominal aorta to a maximum of approximately 4.3 cm is unchanged. Abdominal aortic stenting with SMA arising from the stented portion. Celiac artery arising from the false lumen with severe narrowing [...] body wall edema. No suspicious osseous lesions.. IMPRESSION: 1. 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 No acute change since prior to explain the patient's symptoms. 2. 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 Dictated by: Leo Ventura MD, PHD The radiology attending physician has personally reviewed this study, and had reviewed and/or edited this written report and agrees with it. Electronically signed by: Buffy Chang M.D. Dalton Jones MD IM CT PROCEDURE S Final Result * Respiratory pathogen panel Nasopharyngeal (09/06/2023 12:12 AM CDT) Pathologist [facility] Influenza A RNA Not Detected Not Detected Influenza B RNA Not Detected Not Detected [facility] RSV RNA Not Detected Not Detected [facility] COVID-19 RNA Not Detected Not Detected [facility] Coronavirus 229E RNA Not Detected Not Detected [facility] Coronavirus HKU1 RNA Not Detected Not Detected [facility] Coronavirus NL63 RNA Not Detected Not Detected [facility] Coronavirus OC43 RNA Not Detected Not Detected [facility] Adenovirus DNA Not Detected Not Detected [facility] Metapneumovirus RNA Not Detected Not Detected [facility] Rhinovirus/Enterov irus RNA Not Detected Not Detected [facility] Parainfluenza 1 RNA Not Detected Not Detected [facility] Parainfluenza 2 RNA Not Detected Not Detected [facility] Parainfluenza 3 RNA Not Detected Not Detected [facility] Parainfluenza 4 RNA Not Detected Not Detected [facility] B. pertussis DNA Not Detected Not Detected [facility] B. parapertussis DNA Not Detected Not Detected [facility] C. pneumoniae DNA Not Detected Not Detected [facility] M. pneumoniae DNA Not Detected Not Detected [facility] Nasopharyngeal 09/06/2023 12 :12 AM CDT 09/06/2023 12:21 AM CDT Narrative [facility] - 09/06/2023 1:12 AM CDT Is the Patient experiencing symptoms consistent with COVID?->Yes Surveillance testing for transplant patient?->No ??Interpretive Data The [employer] FilmArray Respiratory Panel (RP2.1) assay is a multiplexed real-time PCR based nucleic acid test capable of simultaneous qualitative detection and identification of multiple respiratory viral and bacterial nucleic acids, including SARS Coronavirus 2 (the causative agent of COVID-19). The following bacteria, viruses and virus subtypes can be identified using the FilmArray RP2.1 assay: Bordetella pertussis, Bordetella parapertussis, Chlamydia pneumoniae, Mycoplasma pneumoniae, Adenovirus, SARS Coronavirus 2, seasonal coronaviruses (Coronavirus HKU1, Coronavirus NL63, Coronavirus 229E, and Coronavirus OC43), Influenza A, Influenza A subtype H1, Influenza A subtype H3, Influenza A subtype 2009 H1, Influenza B, Metapneumovirus, Parainfluenza 1, Parainfluenza 2, Parainfluenza 3, Parainfluenza 4, RSV, Rhinovirus/Enterovirus. Due to the genetic similarity between human Rhinovirus and Enterovirus, the FilmArray RP2.1 assay cannot reliably differentiate them. Coronavirus OC43 may cross-react with some isolates of Coronavirus HKU1. ??A dual positive result may be due to cross-reactivity or may indicate a co-infection. The detection and identification of specific viral and bacterial nucleic acids from individuals exhibiting signs and symptoms of a respiratory infection aids in the diagnosis of respiratory infection if used in conjunction with other clinical and epidemiological information. ??The results of this test should not be used as the sole basis for diagnosis, treatment, or other management decisions. ??Negative results in the setting of a respiratory illness may be due to infection with pathogens that are not detected by this test. ??Positive results do not rule out infection/co-infection with other organisms. ??The agent(s) detected by the FilmArray RP2.1 may not be the definite cause of disease. ??Additional testing (lab, imaging, etc.) may be necessary when evaluating a patient with possible respiratory tract infection. The FilmArray RP2.1 assay has FDA clearance for testing of MOTEL CLERK swabs. ??The performance of additional specimen types has been assessed by the performing laboratory. ??The performance characteristics of this assay have been determined by [facility]. Current interpretive data was last revised on 22. us Dalton Jones MD LAB MICROBIOLOGY - GENERAL ORDERABLES Final Result [facility] [place] [address] * eGFR (09/06/2023 12:08 AM CDT) eGFR 86 >=60 mL/min/1. 73 m2 Comment: [...] interpretive data was last reviewed 2021. Blood 09/06/2023 12:0 8 AM CDT 09/06/2023 12:47 AM CDT Huy Mack MD LAB BLOOD ORDERABLES Final R esult Performing Organization Address City/[facility]/ZIP Co de Phone Number [facility] [place] [address] * Lipase (09/06/2023 12:08 AM CDT) Pathologist [facility] Lipase 10 10 - 99 Units/L Blood 09/06/2023 12:0 8 AM CDT 09/06/2023 12:47 AM CDT Dalton Jones MD LAB BLOOD ORDERA BLES Final Result Performing Organization Address City/[facility] Co de Phone Number [facility] [place] [address] * (ABNORMAL) Differential, auto (09/06/2023 12:08 AM CDT) Neutrophil abs 10.2(H) 1.5 - 6.5 K/cumm Imm gran abs 0.1 0.0 - 0.1 K/cumm [facility] Lymphocyte abs 1.2 0.8 - 3.3 K/cumm [facility] Monocyte abs 0.7 0.2 - 0.8 K/cumm [facility] Eosinophil abs 0.0 0.0 - 0.5 K/cumm [facility] Basophil abs 0.1 0.0 - 0.1 K/cumm [facility] Neutrophil pct 83.1 % [facility] Comment: Interpretive Data Percent cell count reference ranges are not reported, since discordance with absolute values may lead to misinterpretation of CBC data. Current Interpretive Data was last revised on 2017. Imm gran pct 0.7 % [facility] Comment: Interpretive Data Percent cell count reference ranges are not reported, since discordance with absolute values may lead to misinterpretation of CBC data. Current Interpretive Data was last revised on 2017. Lymphocyte pct 9.8 % [facility] Comment: Interpretive Data Percent cell count reference ranges are not reported, since discordance with absolute values may lead to misinterpretation of CBC data. Current Interpretive Data was last revised on 2017. Monocyte pct 5.8 % [facility] Comment: Interpretive Data Percent cell count reference ranges are not reported, since discordance with absolute values may lead to misinterpretation of CBC data. Current Interpretive Data was last revised on 2017. Eosinophil pct 0.2 % [facility] Comment: Interpretive Data Percent cell count reference ranges are not reported, since discordance with absolute values may lead to misinterpretation of CBC data. Current Interpretive Data was last revised on 2017. Basophil pct 0.4 % [facility] Comment: Interpretive Data Percent cell count reference ranges are not reported, since discordance with absolute values may lead to misinterpretation of CBC data. Current Interpretive Data was last revised on 2017. Blood 09/06/2023 12:0 8 AM CDT 09/06/2023 12:39 AM CDT Huy Mack MD LAB BLOOD ORDERABLES Final R esult [facility] [place] [address] * aPTT (09/06/2023 12:08 AM CDT) aPTT 33 28 - 38 sec Comment: Interpretive Data Heparin therapeutic range: 66.0 - 100.0 seconds. Range based on correlation with therapeutic heparin activity range of 0.3 - 0.7 Units/mL. Current interpretive data was last revised on 2023. Blood 09/06/2023 12:0 8 AM CDT 09/06/2023 12:56 AM CDT Dalton Jones MD LAB BLOOD ORDERA BLES Final Result Performing Organization Address City/[facility]/ZIP Co de Phone Number [facility] [place] [address] * Protime-INR (09/06/2023 12:08 AM CDT) PT 12.3 10.3 - 13.7 sec INR 1.08 0.90 - 1.20 [facility] Comment: Interpretive data Oral anticoagulant therapeutic ranges: Venous thromboembolism prophylaxis or treatment: 2.0-3.0 CARDIOLOGY Standard range: 2.0-3.0 High-intensity range: 2.5-3.5 Refer to indication-specific guidelines for appropriate target ranges for prosthetic heart valve replacement. Current interpretive data was last revised on 2019. Blood 09/06/2023 12:0 8 AM CDT 09/06/2023 12:56 AM CDT Dalton Jones MD LAB BLOOD ORDERA BLES Final Result Performing Organization Address [facility] Co de Phone Number [facility] [place] [address] * Type and screen (09/06/2023 12:08 AM CDT) Ellen, indirect Negative ABO Rh A Positive [facility] Blood 09/06/2023 12:0 8 AM CDT 09/06/2023 12:43 AM CDT Narrative [facility] - 09/06/2023 1:32 AM CDT Has the patient had Daratumumab or Isatuximab in the past 6 months?->Unknown Dalton Jones MD LAB BLOOD BANK T EST ORDERABLES Final Result Performing Organization Address City/[facility]/ZIP Co de Phone Number [facility] [place] [address] * Troponin I high-sensitivity series (baseline, 2hr, 4hr, 6hr) (09/06/2023 12:08 AM CDT) Pathologist [facility] Trop I hs <4 <=35 ng/L Comment: Interpretive Data For further RUSTnI resources including the diagnostic algorithm and an aid in interpretation, copy and paste this link: https://bjhlab.testcatalog.org/show/[email or web address] Current Interpretive Data last revised 2019. Blood 09/06/2023 12:0 8 AM CDT 09/06/2023 12:39 AM CDT Dalton Jones MD LAB BLOOD ORDERA BLES Final Result [facility] [place] [address] * (ABNORMAL) Comprehensive metabolic panel (09/06/2023 12:08 AM CDT) [facility] Sodium 135 135 - 145 mmol/L Potassium, pl 4.5 3.3 - 4.9 mmol/L [facility] Chloride 98 97 - 110 mmol/L [facility] CO2 20(L) 22 - 32 mmol/L [facility] Anion gap 17(H) 2 - 15 mmol/L [facility] BUN 17 6 - 25 mg/dL [facility] Creatinine 1.16 0.80 - 1.30 mg/dL [facility] Glucose 144 70 - 199 mg/dL [facility] Comment: Interpretive Data Fasting glucose >/= [...] interpretive data was last revised 2022. Calcium 11.0(H) 8.5 - 10.3 mg/dL [facility] Bilirubin, total 0.6 0.1 - 1.2 mg/dL [facility] Protein, pl 10.1(H) 6.5 - 8.5 g/dL [facility] Albumin 4.8 3.5 - 5.0 g/dL [facility] Alk phos 131(H) 40 - 130 Units/L [facility] ALT 19 7 - 55 Units/L [facility] AST 23 10 - 50 Units/L [facility] Blood (Blood, Venous) 09/06/2023 12:08 AM CDT 09/06/2023 12:47 AM CDT us Dalton Jones MD LAB BLOOD ORDERA BLES Final Result [facility] [place] [address] * (ABNORMAL) CBC with auto differential (09/06/2023 12:08 AM CDT) WBC 12.3(H) 3.8 - 9.9 K/cumm Hgb 15.0 13.0 - 17.5 g/dL [facility] Hct 45.7 38.9 - 50.3 % [facility] Plt 337 150 - 400 K/cumm [facility] MPV 8.9(L) 9.1 - 12.3 fL [facility] RBC 5.29 4.30 - 5.80 M/cumm [facility] MCV 86.4 81.3 - 96.4 fL [facility] MCH 28.4 27.1 - 33.3 pg [facility] MCHC 32.8 32.3 - 35.7 g/dL [facility] RDW CV 15.2(H) 11.1 - 14.9 % [facility] RDW SD 48.9(H) 35.7 - 48.1 fL [facility] NRBC abs 0.00 0.00 - 0.01 K/cumm [facility] Blood (Blood, Venous) 09/06/2023 12:08 AM CDT 09/06/2023 12:39 AM CDT us Dalton Jones MD LAB BLOOD ORDERA BLES Final Result [facility] [place] [address] documented in this encounter Visit Diagnoses Diagnosis 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HCC)- Primary 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HCC) documented in this encounter Admitting Diagnoses Diagnosis 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HCC) documented in this encounter Administered Medications Inactive Administered Medications - up to 3 most recent administrations Medication Order MAR Action Action Date Dose Rate Site acetaminophen (TYLENOL) tablet 1,000 mg 1,000 mg, oral, Once, On Tue09/06/23 at 0203, For 1 dose Given 09/06/2023 2:24 AM CDT 1,000 mg acetaminophen (TYLENOL) tablet 1,000 mg 1,000 mg, oral, Every 8 hours, First dose on Tue09/06/23 at 2000 Given 09/07/2023 11:29 AM CDT 1,000 mg Given 09/07/2023 4:09 AM CDT 1,000 mg Given 09/06/2023 7:57 PM CDT 1,000 mg acetaminophen (TYLENOL) tablet 1,000 mg 1,000 mg, oral, Every 6 hours, First dose (after last modification) on Tue09/07/23 at 1800 Given 09/09/2023 4:41 AM CDT 1,000 mg Given 09/08/2023 5:31 PM CDT 1,000 mg Given 09/08/2023 12:31 PM CDT 1,000 mg acetaminophen (TYLENOL) tablet 650 mg 650 mg, oral, Once, On Tue09/06/23 at 0754, For 1 dose Given 09/06/2023 7:56 AM CDT 650 mg amitriptyline (ELAVIL) tablet 25 mg 25 mg, oral, Nightly, First dose on Tue09/06/23 at 2100 Given 09/08/2023 8:38 PM CDT 25 mg Given 09/07/2023 8:38 PM CDT 25 mg Given 09/06/2023 8:00 PM CDT 25 mg amitriptyline (ELAVIL) tablet 50 mg 50 mg, oral, Once, On Tue09/06/23 at 0500, For 1 dose Given 09/06/2023 5:29 AM CDT 50 mg amLODIPine (NORVASC) tablet 10 mg 10 mg, oral, Daily, First dose on Tue09/06/23 at 0955 Given 09/09/2023 8:33 AM CDT 10 mg Given 09/08/2023 9:00 AM CDT 10 mg Given 09/07/2023 8:14 AM CDT 10 mg aspirin chewable tablet 81 mg 81 mg, oral, Daily, First dose on Tue09/06/23 at 0955 Given 09/09/2023 8:33 AM CDT 81 mg Given 09/08/2023 9:01 AM CDT 81 mg Given 09/07/2023 8:14 AM CDT 81 mg Carrier Fluids for Secondary Infusion - 0.9% Sodium Chloride 30 mL, intravenous, As needed, For priming tubing and/or flushing, Starting on Tue09/06/23 at 1940, 0-250 ml/hr to flush line after IV infusions when no maintenance IV ordered. Infuse 30mL at the same rate as the secondary infusion. Run as primary IV, not intended for KVO. carvediloL (COREG) tablet 37.5 mg 37.5 mg, oral, 2 times daily with meals (bkfst, dinner), First dose (after last modification) on Tue09/06/23 at 1311 Given 09/07/2023 8:15 AM CDT 37.5 mg Given 09/06/2023 5:58 PM CDT 37.5 mg Given 09/06/2023 1:54 PM CDT 37.5 mg carvediloL (COREG) tablet 50 mg 50 mg, oral, 2 times daily with meals (bkfst, dinner), First dose (after last modification) on Tue09/07/23 at 1800 Given 09/08/2023 9:00 AM CDT 50 mg Given 09/07/2023 6:13 PM CDT 50 mg cyclobenzaprine (FLEXERIL) tablet 10 mg 10 mg, oral, 3 times daily PRN, muscle spasms, Starting on Tue09/06/23 at 0952 Given 09/06/2023 5:02 PM CDT 10 mg Given 09/06/2023 11:18 AM CDT 10 mg diazePAM (VALIUM) injection 5 mg 5 mg, intravenous, Administer over 1 Minutes, Once, On Tue09/07/23 at 1845, For 1 dose, Administer once immediately prior to MRI Given 09/08/2023 4:06 PM CDT 5 mg dicyclomine (BENTYL) tablet 20 mg 20 mg, oral, Every 6 hours PRN, abdominal discomfort, cramping, Starting on Catarina 09/08/23 at 1249 Given 09/08/2023 8:42 PM CDT 20 mg enoxaparin (LOVENOX) syringe 40 mg 40 mg, subcutaneous, Daily (for enoxaparin), First dose on Tue09/06/23 at 2100, Indications: Deep Vein Thrombosis PreventionIndications:Deep Vein Thrombosis Prevention Given 09/08/2023 8:39 PM CDT 40 mg Left Lower Abdomen Given 09/07/2023 9:14 PM CDT 40 mg Le ft Lower Abdomen Given 09/06/2023 8:01 PM CDT 40 mg Le ft Upper Arm ergocalciferol (VITAMIN D) capsule 50,000 Units 50,000 Units, oral, Weekly, First dose on Tue09/07/23 at 0900, For 8 doses, Do not crush, break, or open. Given 09/07/2023 8:14 AM CDT 50,000 Units esmolol in 0.9% sodium chloride (BREVIBLOC) 2,500 mg/250 mL (10 mg/mL) infusion (premix) 0-300 mcg/kg/min ? 93 kg (0-167.4 mL/hr), 10 mg/mL, intravenous, Titrated, Starting on Tue09/06/23 at 0006, Until Tue09/06/23 at 0947, Initial rate: 50 mcg/kg/min, Titrate: Up, Down, Titrate UP by: 50 mcg/kg/min, Titrate UP every: 5 minutes, Titrate DOWN by: 25 mcg/kg/min, Titrate DOWN every: 30 minutes, Goal: SBP, SBP Goal: Other (comment) / hr 50-60, sbp 120-130s, Routine Rate/Dose Change 09/06/2023 1:29 AM CDT 200 mcg/kg/min 111.6 mL/hr Rate/Dose Change 09/06/2023 1:11 AM CDT 225 mcg/kg/min 125 .6 mL/hr Rate/Dose Change 09/06/2023 12:55 AM CDT 250 mcg/kg/min 13 9.5 mL/hr gabapentin (NEURONTIN) capsule 300 mg 300 mg, oral, 3 times daily, First dose on Tue09/06/23 at 0955 Given 09/06/2023 5:58 PM CDT 300 mg Given 09/06/2023 12:15 PM CDT 300 mg gabapentin (NEURONTIN) capsule 300 mg 300 mg, oral, 3 times daily, First dose (after last modification) on Tue09/06/23 at 2100 Given 09/08/2023 9:00 AM CDT 300 mg Given 09/07/2023 8:38 PM CDT 300 mg Given 09/07/2023 4:30 PM CDT 300 mg gabapentin (NEURONTIN) tablet 600 mg 600 mg, oral, 3 times daily, First dose (after last modification) on Tue09/08/23 at 1600 Given 09/09/2023 8:33 AM CDT 600 mg Given 09/08/2023 8:42 PM CDT 600 mg Given 09/08/2023 5:31 PM CDT 600 mg hydrALAZINE (APRESOLINE) tablet 50 mg 50 mg, oral, 3 times daily, First dose on Tue09/06/23 at 0955 Given 09/09/2023 8:33 AM CDT 50 mg Given 09/08/2023 8:42 PM CDT 50 mg Given 09/08/2023 5:31 PM CDT 50 mg hydrocortisone (ANUSOL-HC) 2.5 % rectal cream rectal, 2 times daily PRN, hemorrhoids, itching, Starting on Tue09/08/23 at 1822 HYDROmorphone (DILAUDID) injection 1 mg 1 mg, intravenous, Administer over 2 Minutes, Every 20 min PRN, 1st line for pain, Starting on Tue09/06/23 at 0002, For 3 doses Given 09/06/2023 1:32 AM CDT 1 mg Given 09/06/2023 12:47 AM CDT 1 mg Given 09/06/2023 12:09 AM CDT 1 mg HYDROmorphone (DILAUDID) injection 1 mg 1 mg, intravenous, Administer over 2 Minutes, Once, On Tue09/06/23 at 0348, For 1 dose Given 09/06/2023 4:01 AM CDT 1 mg HYDROmorphone (DILAUDID) injection 1 mg 1 mg, intravenous, Administer over 2 Minutes, Once, On Tue09/06/23 at 0534, For 1 dose Given 09/06/2023 5:35 AM CDT 1 mg ioversoL (OPTIRAY 350) syringe 75 mL 75 mL, intravenous, Once in imaging, contrast, Starting on Tue09/06/23 at 0156, For 1 dose Contrast Given 09/06/2023 1:58 AM CDT 68 mL ketorolac (TORADOL) 30 mg/mL injection 30 mg 30 mg, intravenous, Once, On Tue09/06/23 at 0826, For 1 dose, For Adult IV push, administer over 15 seconds Given 09/06/2023 8:28 AM CDT 30 mg ketorolac (TORADOL) 30 mg/mL injection 30 mg 30 mg, intravenous, Once, On Tue09/06/23 at 2000, For 1 dose, For Adult IV push, administer over 15 seconds Given 09/06/2023 7:57 PM CDT 30 mg labetaloL (NORMODYNE,TRANDATE) tablet 400 mg 400 mg, oral, 2 times daily, First dose on Tue09/08/23 at 1330 Given 09/09/2023 8:33 AM CDT 400 mg Given 09/08/2023 8:37 PM CDT 400 mg Given 09/08/2023 2:10 PM CDT 400 mg Lactated Ringer's (LR) bolus 500 mL 500 mL, intravenous, Once, On Tue09/07/23 at 0815, For 1 dose New Bag 09/07/2023 8:05 AM CDT 500 mL Lactated Ringer's (LR) bolus 500 mL 500 mL, intravenous, Once, On Tue09/07/23 at 1145, For 1 dose New Bag 09/07/2023 11:24 AM CDT 500 mL lidocaine (ASPERCREME) 4 % patch 2 patch 2 patch, transdermal, Administer over 12 Hours, Daily, First dose on Tue09/06/23 at 0900, Apply to affected area: back, abdomen Medication Applied 09/09/2023 8:39 AM CDT 2 patches Other (Comment) Medication Applied 09/08/2023 9:03 AM CDT 2 patches Back Medication Applied 09/07/2023 8:16 AM CDT 2 patches Other (Comment) ondansetron (ZOFRAN) injection 4 mg 4 mg, intravenous, Administer over 2 Minutes, Once as needed, nausea, vomiting, If patient unable to tolerate PO, Starting on Tue09/05/23 at 2307, For 1 dose, Do not administer if patient had 8mg administered within 6 hours of patient presenting to ED Do not administer if patient was formally diagnosed with prolonged QT syndrome Given 09/06/2023 12:08 AM CDT 4 mg ondansetron ODT (ZOFRAN-ODT) disintegrating tablet 4 mg 4 mg, oral, Once as needed, nausea, vomiting, If able to tolerate PO, Starting on Tue09/05/23 at 2307, For 1 dose, Do not administer if patient had 8mg administered within 6 hours of patient presenting to ED Do not administer if patient was formally diagnosed with prolonged QT syndrome Given 09/05/2023 11:10 PM CDT 4 mg oxyCODONE (ROXICODONE) tablet 10 mg 10 mg, oral, Every 4 hours PRN, 1st line for pain, Starting on Tue09/06/23 at 1113, Indications: PainIndications:Pain Given 09/06/2023 3:21 PM CDT 10 mg Given 09/06/2023 11:17 AM CDT 10 mg oxyCODONE (ROXICODONE) tablet 10 mg 10 mg, oral, Every 4 hours PRN, 1st line for pain, Starting on Tue09/07/23 at 1956, Indications: PainIndications:Pain Given 09/08/2023 9:50 AM CDT 10 mg Given 09/08/2023 6:13 AM CDT 10 mg Given 09/08/2023 2:22 AM CDT 10 mg oxyCODONE (ROXICODONE) tablet 5 mg 5 mg, oral, Every 4 hours PRN, 1st line for pain, Starting on Tue09/06/23 at 1918, Indications: PainIndications:Pain Given 09/07/2023 5:07 PM CDT 5 mg Given 09/07/2023 12:37 PM CDT 5 mg Given 09/07/2023 8:15 AM CDT 5 mg oxyCODONE (ROXICODONE) tablet 5 mg 5 mg, oral, Every 4 hours PRN, 2nd line for pain, Starting on Tue09/08/23 at 1005, Indications: PainIndications:Pain Given 09/09/2023 4:41 AM CDT 5 mg Given 09/08/2023 6:58 PM CDT 5 mg Given 09/08/2023 2:13 PM CDT 5 mg polyethylene glycol (MIRALAX) packet 17 g 17 g, oral, Daily, First dose (after last modification) on Tue09/08/23 at 1030, Indications: constipationIndications:constipation Given 09/09/2023 8:32 AM CDT 17 g Given 09/08/2023 12:00 PM CDT 17 g QUEtiapine (SEROquel) tablet 50 mg 50 mg, oral, Nightly, First dose on Tue09/06/23 at 2100 Given 09/08/2023 8:37 PM CDT 50 mg Given 09/07/2023 8:38 PM CDT 50 mg Given 09/06/2023 8:00 PM CDT 50 mg senna-docusate (PERICOLACE) 8.6-50 mg per tablet 2 tablet 2 tablet, oral, Nightly, First dose (after last modification) on Tue09/06/23 at 2100 Given 09/08/2023 8:37 PM CDT 2 tablets Given 09/07/2023 8:38 PM CDT 2 tablets Given 09/06/2023 8:00 PM CDT 2 tablets sodium chloride 0.9% flush 0.5-20 mL 0.5-20 mL, intra-catheter, Every 8 hours scheduled, First dose on Tue09/06/23 at 2200, Flush volume based on line type and size. Given 09/08/2023 12:34 PM CDT 1 0 mL Given 09/07/2023 2:00 PM CDT 10 mL Given 09/06/2023 8:50 PM CDT 10 mL sodium chloride 0.9% flush 0.5-20 mL 0.5-20 mL, intra-catheter, Every 8 hours scheduled, First dose on Tue09/06/23 at 2200, Flush volume based on line type and size. Given 09/08/2023 8:43 PM CDT 10 mL Given 09/08/2023 12:34 PM CDT 10 mL Given 09/07/2023 2:00 PM CDT 10 mL sodium chloride 0.9% flush 0.5-20 mL 0.5-20 mL, intra-catheter, As needed, line care, Starting on Tue09/06/23 at 1940, Flush volume based on line type and size. Flush before and after each use. tamsulosin (FLOMAX) extended release capsule 0.4 mg 0.4 mg, oral, Daily with dinner, First dose on Tue09/07/23 at 1800, Do not crush, chew, cut, dissolve, open or otherwise manipulate tablet/capsule. Given 09/08/2023 5:31 PM CDT 0.4 mg Given 09/07/2023 6:13 PM CDT 0.4 mg documented in this encounter Discontinued Medications Medication Sig Discontinue Reason Start Date End Da te QUEtiapine (SEROquel) 50 mg tablet Take 1 tablet (50 mg total) by mouth nightly 09/09/2023 amitriptyline (ELAVIL) 25 mg tablet Take 1 tablet (25 mg total) by mouth nightly 08/24/2023 09/09/2023 carvediloL (COREG) 12.5 mg tablet Take 2 tablets (25 mg total) by mouth 2 (two) times a day with meals Stop Taking at Discharge 06/25/2023 09/09/2023 gabapentin (NEURONTIN) 300 mg capsule Take 1 capsule (300 mg total) by mouth 3 (three) times a day Stop Taking at Discharge 06/25/2023 09/09/2023 ferrous sulfate 325 mg (65 mg of elemental iron) tablet Take 1 tablet (325 mg total) by mouth 3 (three) times a day with meals Stop Taking at Discharge 07/25/2023 09/09/2023 meloxicam (MOBIC) 15 mg tablet Take 1 tablet (15 mg total) by mouth daily for 14 days Stop Taking at Discharge 08/24/2023 09/09/2023 documented as of this encounter Active and Recently Administered Medications Times are shown in CDT. Scheduled Medication Order 09/07/2023 09/08/2023 09/09/2023 acetaminophen (TYLENOL) tablet 1,000 mg (CANCELED) 1,000 mg, oral, Every 8 hours, First dose on Tue09/06/23 at 2000 0409 (Given - Provider: Rolando Bradley RN)1129 (Given - Provider: Dayami Olivarez RN - Comment: abdomen) acetaminophen (TYLENOL) tablet 1,000 mg 1,000 mg, oral, Every 6 hours, First dose (after last modification) on Tue09/07/23 at 1800 1813 (Given - Provider: Dayami Olivarez RN)2309 (Given - Provider: Rolando Bradley RN) 0552 (Given - Provider: Rolando Bradley RN)1231 (Given - Provider: Dayami Olivarez RN)1731 (Given - Provider: Dayami Olivarez RN - Comment: back)2323 (Not Given - Provider: Rolando Bradley RN - Reason: Patient/family refused) 0441 (Given - Provider: Rolando Bradley RN)1222 (Not Given - Provider: Dayami Olivarez RN - Reason: Patient/family refused - Comment: back) amitriptyline (ELAVIL) tablet 25 mg 25 mg, oral, Nightly, First dose on Tue09/06/23 at 2100 2038 (Given - Provider: Rolando Bradley RN) 2038 (Given - Provider: Rolando Bradley RN) amLODIPine (NORVASC) tablet 10 mg 10 mg, oral, Daily, First dose on Tue09/06/23 at 0955 0814 (Given - Provider: Dayami Olivarez RN) 0900 (Given - Provider: Dayami Olivarez, BRIA) 0833 (Given - Provider: Dayami Olivarez RN) aspirin chewable tablet 81 mg 81 mg, oral, Daily, First dose on Tue09/06/23 at 0955 0814 (Given - Provider: Dayami Olivarez RN) 0901 (Given - Provider: Dayami Olivarez RN) 0833 (Given - Provider: Dayami Olivarez RN - Comment: back pain) carvediloL (COREG) tablet 37.5 mg (CANCELED) 37.5 mg, oral, 2 times daily with meals (bkfst, dinner), First dose (after last modification) on Tue09/06/23 at 1311 0815 (Given - Provider: Dayami Olivarez RN) carvediloL (COREG) tablet 50 mg (CANCELED) 50 mg, oral, 2 times daily with meals (bkfst, dinner), First dose (after last modification) on Tue09/07/23 at 1800 1813 (Given - Provider: Dayami Olivarez RN) 0900 (Given - Provider: Dayami Olivarez RN) diazePAM (VALIUM) injection 5 mg (COMPLETED) 5 mg, intravenous, Administer over 1 Minutes, Once, On Tue09/07/23 at 1845, For 1 dose, Administer once immediately prior to MRI 1606 (Given - Provider: Dayami Olivarez RN) enoxaparin (LOVENOX) syringe 40 mg 40 mg, subcutaneous, Daily (for enoxaparin), First dose on Tue09/06/23 at 2100, Indications: Deep Vein Thrombosis Prevention 2113 (Given - Provider: Rolando Bradley RN) 2038 (Given - Provider: Rolando Bradley RN) ergocalciferol (VITAMIN D) capsule 50,000 Units 50,000 Units, oral, Weekly, First dose on Tue09/07/23 at 0900, For 8 doses, Do not crush, break, or open. 0814 (Given - Provider: Dayami Olivarez RN) gabapentin (NEURONTIN) capsule 300 mg (CANCELED) 300 mg, oral, 3 times daily, First dose (after last modification) on Tue09/06/23 at 2100 0814 (Given - Provider: Dayami Olivarez RN)1630 (Given - Provider: Dayami Olivarez RN)2038 (Given - Provider: Rolando Bradley RN) 0900 (Given - Provider: Dayami Olivarez RN) gabapentin (NEURONTIN) tablet 600 mg 600 mg, oral, 3 times daily, First dose (after last modification) on Tue09/08/23 at 1600 1731 (Given - Provider: Dayami Olivarez RN)2041 (Given - Provider: Rolando Bradley RN) 0833 (Given - Provider: Dayami Olivarez RN) hydrALAZINE (APRESOLINE) tablet 50 mg 50 mg, oral, 3 times daily, First dose on Tue09/06/23 at 0955 0814 (Given - Provider: Dayami Olivarez RN)1600 (Given - Provider: Dayami Olivarez RN)2038 (Given - Provider: Rolando Bradley RN) 0900 (Given - Provider: Dayami Olivarez RN)173 (Given - Provider: Dayami Olivarez RN)2041 (Given - Provider: Rolando Bradley RN) 0833 (Given - Provider: Dayami Olivarez RN) labetaloL (NORMODYNE,TRANDATE) tablet 400 mg 400 mg, oral, 2 times daily, First dose on Tue09/08/23 at 1330 1410 (Given - Provider: Donna Huddleston)2036 (Given - Provider: Rolando Bradley RN) 0833 (Given - Provider: Dayami Olivarez RN) Lactated Ringer's (LR) bolus 500 mL (COMPLETED) 500 mL, intravenous, Once, On Tue09/07/23 at 0815, For 1 dose 0805 (New Bag - Provider: Dayami Olivarez RN) Lactated Ringer's (LR) bolus 500 mL (COMPLETED) 500 mL, intravenous, Once, On Tue09/07/23 at 1145, For 1 dose 1124 (New Bag - Provider: Dayami Olivarez RN) lidocaine (ASPERCREME) 4 % patch 2 patch 2 patch, transdermal, Administer over 12 Hours, Daily, First dose on Tue09/06/23 at 0900, Apply to affected area: back, abdomen 0816 (Medication Applied - Provider: Dayami Olivarez RN - Comment: abdomen)2112 (Medication Removed - Provider: Rolando Bradley RN) 09 (Medication Applied - Provider: Dayami Olivarez RN)2041 (Medication Removed - Provider: Rolando Brdaley RN) 0839 (Medication Applied - Provider: Dayami Olivarez RN)1509 (Due: Medication Removed - Provider: Automatic Discharge Provider - Comment: Time automatically adjusted from order being discontinued) polyethylene glycol (MIRALAX) packet 17 g 17 g, oral, Daily, First dose (after last modification) on Tue09/08/23 at 1030, Indications: constipation 1200 (Given - Provider: Dayami Olivarez RN) 0832 (Given - Provider: Dayami Olivarez RN) QUEtiapine (SEROquel) tablet 50 mg 50 mg, oral, Nightly, First dose on Tue09/06/23 at 2099 2037 (Given - Provider: Rolando Bradley RN) 2036 (Given - Provider: Rolando Bradley RN) senna-docusate (PERICOLACE) 8.6-50 mg per tablet 2 tablet 2 tablet, oral, Nightly, First dose (after last modification) on Tue09/06/23 at 2099 2037 (Given - Provider: Rolando Bradley RN) 2036 (Given - Provider: Rolando Bradley RN) sodium chloride 0.9% flush 0.5-20 mL 0.5-20 mL, intra-catheter, Every 8 hours scheduled, First dose on Tue09/06/23 at 2200, Flush volume based on line type and size. 0500 (Not Given - Provider: Rolando Bradley RN - Reason: Other - Comment: sleep hygiene)1400 (Given - Provider: Dayami Olivarez RN)2115 (Not Given - Provider: Rolando Bradley RN - Reason: Patient/family refused) 0608 (Not Given - Provider: Rolando Bradley RN - Reason: Other - Comment: sleep hygiene)1234 (Given - Provider: Dayami Olivarez RN)2129 (Not Given - Provider: Rolando Bradley RN - Reason: Patient/family refused) 0501 (Not Given - Provider: Rolando Bradley RN - Reason: Other - Comment: sleep hygiene)1400 (Due) sodium chloride 0.9% flush 0.5-20 mL(Linked Group 1) 0.5-20 mL, intra-catheter, Every 8 hours scheduled, First dose on Tue09/06/23 at 2200, Flush volume based on line type and size. 0500 (Not Given - Provider: Rolando Bradley RN - Reason: Other - Comment: sleep hygiene)1400 (Given - Provider: Dayami Olivarez RN)2115 (Not Given - Provider: Rolando Bradley RN - Reason: Patient/family refused) 0608 (Not Given - Provider: Rloando Bradley RN - Reason: Other - Comment: sleep hygiene)1234 (Given - Provider: Dayami Olivarez RN)2043 (Given - Provider: Rolando Bradley RN) 0501 (Not Given - Provider: Rolando Bradley RN - Reason: Other - Comment: sleep hygiene)1400 (Due) tamsulosin (FLOMAX) extended release capsule 0.4 mg 0.4 mg, oral, Daily with dinner, First dose on Tue09/07/23 at 1800, Do not crush, chew, cut, dissolve, open or otherwise manipulate tablet/capsule. 1813 (Given - Provider: Dayami Olivarez RN) 1731 (Given - Provider: Dayami Olivarez RN) PRN Medication Order 09/07/2023 09/08/2023 09/09/2023 Carrier Fluids for Secondary Infusion - 0.9% Sodium Chloride 30 mL, intravenous, As needed, For priming tubing and/or flushing, Starting on Tue09/06/23 at 1940, 0-250 ml/hr to flush line after IV infusions when no maintenance IV ordered. Infuse 30mL at the same rate as the secondary infusion. Run as primary IV, not intended for KVO. Carrier Fluids for Secondary Infusion - 0.9% Sodium Chloride(Linked Group 1) 30 mL, intravenous, As needed, For priming tubing and/or flushing, Starting on Tue09/06/23 at 1940, 0-250 ml/hr to flush line after IV infusions when no maintenance IV ordered. Infuse 30mL at the same rate as the secondary infusion. Run as primary IV, not intended for KVO. cyclobenzaprine (FLEXERIL) tablet 10 mg 10 mg, oral, 3 times daily PRN, muscle spasms, Starting on Tue09/06/23 at 0952 dicyclomine (BENTYL) tablet 20 mg 20 mg, oral, Every 6 hours PRN, abdominal discomfort, cramping, Starting on Tue09/08/23 at 1249 2042 (Given - Provider: Rolando Bradley RN) hydrocortisone (ANUSOL-HC) 2.5 % rectal cream rectal, 2 times daily PRN, hemorrhoids, itching, Starting on Tue09/08/23 at 1822 oxyCODONE (ROXICODONE) tablet 10 mg (CANCELED) 10 mg, oral, Every 4 hours PRN, 1st line for pain, Starting on Tue09/07/23 at 1956, Indications: Pain 203 (Given - Provider: Rolando Bradley RN) 0222 (Given - Provider: Rolando Bradley RN)0613 (Given - Provider: Rolando Bradley RN)0950 (Given - Provider: Dayami Olivarez RN - Comment: back) oxyCODONE (ROXICODONE) tablet 5 mg (CANCELED) 5 mg, oral, Every 4 hours PRN, 1st line for pain, Starting on Tue09/06/23 at 1918, Indications: Pain 0410 (Given - Provider: Rolando Bradley RN)0815 (Given - Provider: Dayami Olivarez RN - Comment: abdomen)1237 (Given - Provider: Dayami Olivarez RN - Comment: abdomen)1707 (Given - Provider: Dayami Olivarez RN) oxyCODONE (ROXICODONE) tablet 5 mg 5 mg, oral, Every 4 hours PRN, 2nd line for pain, Starting on Tue09/08/23 at 1005, Indications: Pain 1413 (Given - Provider: Dayami Olivarez RN - Comment: abdomen)1858 (Given - Provider: Dayami Olivarez RN - Comment: back pain) 0441 (Given - Provider: Rolando Bradley RN) sodium chloride 0.9% flush 0.5-20 mL 0.5-20 mL, intra-catheter, As needed, line care, Starting on Tue09/06/23 at 1940, Flush volume based on line type and size. Flush before and after each use. sodium chloride 0.9% flush 0.5-20 mL(Linked Group 1) 0.5-20 mL, intra-catheter, As needed, line care, Starting on Tue09/06/23 at 1940, Flush volume based on line type and size. Flush before and after each use. Linked Groups Order Group 1: Saline lock IV (CANCELED) Routine, Once (Routine), On Tue09/06/23 at 1941, For 1 occurrence And sodium chloride 0.9% flush 0.5-20 mLJump to med 0.5-20 mL, intra-catheter, Every 8 hours scheduled, First dose on Tue09/06/23 at 2200, Flush volume based on line type and size. And sodium chloride 0.9% flush 0.5-20 mLJump to med 0.5-20 mL, intra-catheter, As needed, line care, Starting on Tue09/06/23 at 1940, Flush volume based on line type and size. Flush before and after each use. And Carrier Fluids for Secondary Infusion - 0.9% Sodium ChlorideJump to med 30 mL, intravenous, As needed, For priming tubing and/or flushing, Starting on Tue09/06/23 at 1940, 0-250 ml/hr to flush line after IV infusions when no maintenance IV ordered. Infuse 30mL at the same rate as the secondary infusion. Run as primary IV, not intended for KVO. documented in this encounter Orders Medications Ordered That Gerardo ht Not Have Been Administered Count Last Ordered Date First Ordered Date hydrocortisone (ANUSOL-HC) 2 .5 % rectal cream 1 09/08/2023 Lactated Ringer's (LR) infus ion - ADS Override Pull 1 09/07/2023 acetaminophen (TYLENOL) tablet 1,000 mg 1 0 09/06/2023 Carrier Fluids for Secondary Infusion - 0.9% Sodium Chloride 2 09/06/2023 carvediloL (COREG) tablet 37.5 mg 1 024 cyclobenzaprine (FLEXERIL) tablet 5 mg 1 gabapentin (NEURONTIN) tablet 600 mg 1 01/2024 polyethylene glycol (MIRALAX) packet 17 g 1 09/06/2023 senna-docusate (PERICOLACE) 8.6-50 mg per tablet 2 tablet 1 09/06/2023 sodium chloride 0.9% flush 0.5-20 mL 2 01/2024 Lab Orders Without Results Count Last Ordered D ate First Ordered Date LIPASE 1 09/06/2023 EKG Orders Without Results Count Last Ordered D ate First Ordered Date ECG 12-LEAD 1 09/05/2023 Diet Count Last Ordered Date First Orde red Date ADULT DISCHARGE DIET 1 09/09/2023 Nursing Count Last Ordered Date First Orde red Date DISCHARGE ACTIVITY 1 09/09/2023 Consult Count Last Ordered Date First Orde red Date IP CONSULT TO RHEUMATOLOGY 1 09/07/2023 IP CONSULT TO NUTRITION SERVICES 1 09/06/19 IP CONSULT TO SPIRITUAL CARE 1 09/06/2023 IV Count Last Ordered Date First Orde red Date SALINE LOCK IV 1 09/05/2023 Admission Count Last Ordered Date First Orde red Date ADMIT TO INPATIENT 1 09/06/2023 Discharge Count Last Ordered Date First Orde red Date DISCHARGE PATIENT 2 09/09/2023 documented in this encounter Additional Health Concerns Infection Onset Date Last Indicated Resolved Time COVID: Suspected 09/06/2023 09/06/2023 09/06/2023 1:13 AM CDT documented as of this encounter Care Teams Emergency Communications Operator Relationship Specialty Start Date End Date Carl Strickland MD [address] [facility] [address] [place] [address] PCP - General Internal Medicine 06/06/23 Leo Manzano MD [address] [facility] [place] [id number] [place] [address] Surgeon Vascular Surgery 05/16/23 documented as of this encounter
--- OUTSIDE RECORDS SUMMARY | 2024-05-30 05:36 | XMS_ITS | Encounter Summary ---
Author Organization [facility] Healthcare Address [address] [place] [address] Care Team Providers Care Bus Matron Name Role Phone Leo Manzano MD Unavailable [phone] Carl Strickland MD Primary Care Provider Reason for Visit * Reason Comments Abdominal Pain Stomach and back dawna n * Auth/Cert (Routine) Specialty Diagnoses / Procedures Referred By Contac t Referred To Contact Diagnoses Back pain at L4-L5 level Procedures NA Referral ID Status Reason Start Date Expiration Date Visits Re quested Visits Authorized [id number] 1 1 Encounter Details Date Type Department Care Team (Late st Contact Info) Description 08/23/2023 8:14 AM CDT - 08/24/2023 6:11 PM CDT Emergency [address] [id number] Christine Gotti MD PhD [address] [facility] [address] [place] [address] Aman Arredondo MD [address] [place] [address] [address] [place] [address] Marianna Sam MD [address] [facility] [address] [place] [address] Hoda Ruiz MD [address] [facility] [address] [place], [place] [id number] Norma Gross MD [address] [place], [place] [id number] Abdominal pain (Primary Dx); Low back pain without sciatica, unspecified back pain laterality, unspecified chronicity; Nephrolithiasis; Other chronic pain [G89.29] Discharge Disposition: Discharge to home or self care Social History Tobacco Use Types Packs/Day Years Used Date Smoking Tobacco: Never Smokeless Tobacco: Never Alcohol Use Standard Drinks/Week Comments Not Currently 0 (1 standard drink = 0.6 oz pur e alcohol) [facility] Utilities Answer Date Recorded In the past 12 months has [employer] gas, oil, or water [employer] threatened to shut off services in your [...] How often do you attend chur or taoist services? More than 4 times per year 07/06/2023 Do you belong to any clubs o r organizations such as adventism groups, unions, fraternal or athletic groups, or [...] or slept in a snf (including now)? No 07/06/2023 Personal Safety Answer Date Recorded Have you ever been in or are you currently in a harmful physical or emotional relationship or is someone making you feel afraid or unsafe? 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 Gender Identity Not on file Sexual Orientation Straight 06/12/2023 11 :43 PM CHORE TENDER documented as of this encounter Last Filed Vital Signs Vital Sign Reading Time Taken Comments Blood Pressure 180/99 08/24/2023 5:36 PM CDT Pulse 93 08/24/2023 5:36 PM CDT Temperature 36.6 ??C (97.9 ??F) 08/24/2023 9:05 AM CD T Respiratory Rate 16 08/24/2023 9:05 AM CDT Oxygen Saturation 98% 08/24/2023 9:05 AM CDT Inhaled Oxygen Concentration - - Weight 93 kg (205 lb) 08/23/2023 9:50 PM CDT Height 177.8 cm (5' 10 ) 08/23/2023 9:50 PM CDT Body Mass Index 29.41 08/23/2023 9:50 PM CDT documented in this encounter Discharge Summaries * Jennifer Lewis, TREE - 08/24/2023 5:48 PM CDT Inpatient Discharge Summary BRIEF OVERVIEW Admitting Provider: Christine Gotti MD PhD Discharge Provider: Norma Gross MD Primary Care Physician at Discharge: Carl Strickland MD [phone] Admission Date: 08/23/2023 Discharge Date: 08/24/2023 Admission Location: [facility] Problems/Diagnoses: Principal Problem: Chronic back pain Active Problems: Dissection of thoracoabdominal aorta (CMS/HCC) (HCC) HTN (hypertension) PFO (patent foramen ovale) Resolved Problems: No resolved hospital problems. DETAILS OF HOSPITAL STAY Presenting Problem/History of Present Illness: Mr. 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 He states his symptoms first started back in April when he was first diagnosed with his dissection and has been intermittent ever since. Pain is described as severe and sharp, stabbing in sensation and located in his lower back. No recent numbness or loss of sensation (had issues with LLE numbness after his first surgery in April which has since resolved), falls, or urinary incontinence.He had 1 episode of bowel incontinence due to not making it to the bathroom in time, but continues to have the urge sensation. Today he also developed epigastric abdominal pain with nausea and one episode of NBNB emesis. He follows with vascular surgery as outpatient for his repair and was discontinued off his opioids in June after being out of the post op window. Since then he has had more issues with acute pain flares and is scheduled to see a pain management doctor at the end of August, but today he did not think he could manage with the pain anymore. Of note he presented to the ED on 07/26/23 with similar symptoms and was ultimately thought to have cannabis hyperemesis syndrome after vascular surgery ruled out further dissection complications. Today he continues to report that heat and hot showers help his pain and nausea. He last smoked marijuana 1-2 weeks ago and this current episode has been occurring for 1 week. His outpatient provider started PRN flexeril for his pain, which he does not think is providing much relief. Upon [facility] ED arrival his vital signs were notable for hypertension to 154/115 and otherwise stable on room air. Labs with CMP with elevated protein of 9.6 and Alk phos of 133 with remainder within normal limits. CBC within normal limits. Lactate initially elevated at 3.4 with repeat 1.3. Lipase normal and troponin negative x2. D-dimer elevated to 2,250. RVP negative and UA negative. 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 No acute change from prior. CT head without acute process. Vascular surgery was consulted and report imaging is stable and they do not think his pain is secondary to his dissection or repairat this time. He was given Amlodipine 10 mg PO x1, Tylenol 1000 mg PO x1, Capsaicin cream, flexeril5 mg TID, droperidol 0.625 mg IV x1, gabapentin 100 mg PO TID, Haldol 1 mg Ivx1, fentanyl 50 mcg IVx1, hydromorphone 1 mg IV x3, ketorolac 15 mg IV x1, Zofran 8 mg IV x1, & Oxycodone 5 mg PO x2 w ith persistent pain symptoms so was then admitted observation for further management. Hospital Course: Chronic back pain Presented with acute on chronic back and abdominal pain, which has been an ongoing issue ever sincehis dissection diagnosis back in April 2023. Reports his pain flared to the point where he now also has epigastric abdominal pain with nausea and NBNB emesis. Prior work-up has included multiple CTA since endovascular repair that are stable, whole spine MRI (06/16/23) that was negative for fracture or discitis/OM, and no evidence of further ureteral stones or pancreatitis. -Lipase within normal limits. CTA again stable here -Suspect underlying neuropathic pain from dissection vs hypersensitivity vs cannabis hyperemesis syndrome -Pain management consult- recommended discontinuing ibuprofen 800 mg t.i.d. and start meloxicam 15 mg daily, start amitriptyline 25 mg q.h.s. -Pain control per pain management recommendations at discharge. Also prescribed short course of prnoxycodone. Patient educated ok to use prn tylenol, no ibuprofen while taking meloxicam. Patient to follow up with PCP for further management. Also has outpatient pain management appointment next month. PFO (patent foramen ovale) Filters on IV HTN (hypertension) Continue home Amlodipine 10 mg qday, Hydralazine 50 mg TID and Coreg 37.5 mg BID -BP was elevated on ED arrival and suspect secondary to pain. Well controlled on home medications during admission, continued at discharge Dissection of thoracoabdominal aorta Follows with both vascular surgery and Dr. Felipe, now s/p repair -CTA with stable findings -Vascular surgery consulted in ED and no surgical intervention needed at this time Test Results Pending at Discharge: Pending Labs Order Current Status D-dimer, quantitative In process Discharge Details Physical Exam at Discharge: Discharge Condition: good Pulse: 93 Resp: 16 BP: (!) 180/99 Temp: 36.6 ??C (97.9 ??F) Weight: 93 kg (205 lb) Discharge Disposition: Discharge to home or self care Code Status at Discharge: full code Discharge Instructions: Activity Instructions Discharge activity: Resume normal activity Diet Instructions Adult Discharge Diet Diet Type: Return to previous diet Other Instructions Call provider for: Temperature -Temperature greater than 101 degrees F Call provider for: difficulty breathing or chest pain Call provider for: persistent nausea or vomiting Call provider for: severe uncontrolled pain Discharge Medications: Current Medications TAKE these medications amitriptyline 25 mg tablet Take 1 tablet (25 mg total) by mouth nightly Commonly known as: ELAVIL amLODIPine 10 mg tablet Take 1 tablet (10 mg total) by mouth daily Commonly known as: NORVASC aspirin 81 mg chewable tablet Take 1 tablet (81 mg total) by mouth daily capsaicin 0.025 % cream Apply topically 2 (two) times a day Commonly known as: ZOSTRIX carvediloL 12.5 mg tablet Take 2 tablets (25 mg total) by mouth 2 (two) times a day with meals Commonly known as: COREG cyclobenzaprine 10 mg tablet Take 1 tablet (10 mg total) by mouth 3 (three) times a day as needed for muscle spasms Commonly known as: FLEXERIL ferrous sulfate 325 mg (65 mg of elemental iron) tablet Take 1 tablet (325 mg total) by mouth 3 (three) times a day with meals gabapentin 300 mg capsule Take 1 capsule (300 mg total) by mouth 3 (three) times a day Commonly known as: NEURONTIN hydrALAZINE 50 mg tablet Take 1 tablet (50 mg total) by mouth 3 (three) times a day Commonly known as: APRESOLINE meloxicam 15 mg tablet Take 1 tablet (15 mg total) by mouth daily for 14 days Commonly known as: MOBIC ondansetron ODT 4 mg disintegrating tablet Take 1 tablet (4 mg total) by mouth every 8 (eight) hours as needed for nausea or vomiting Commonly known as: ZOFRAN-ODT oxyCODONE 10 mg tablet Take 1 tablet (10 mg total) by mouth every 6 (six) hours as needed for pain for up to 3 days For: pain Commonly known as: ROXICODONE QUEtiapine 50 mg tablet Take 1 tablet (50 mg total) by mouth nightly Commonly known as: SEROquel senna-docusate 8.6-50 mg Take 2 tablets by mouth 2 (two) times a day To prevent constipation Commonly known as: PERICOLACE Outpatient Follow-Up: Future Appointments Date Time Provider Department Center 09/27/2023 9:30 AM Amanda Macias MD CAM PAIN [facility] CAM 10/07/2023 9:00 AM [facility] [id number] US [facility] Main IMG 10/07/2023 10:00 AM Marcus Gamboa MD [facility]C [facility] 10/14/2023 10:20 AM Marcus Gamboa MD [facility]C [facility] 11/23/2023 3:30 PM Joaquín Abarca MD CAR CAM 8B Cardiology 02/15/2024 1:00 PM Leo Manzano MD [facility] [id number] Contact Information for Follow-ups Carl Strickland MD Specialty: Internal Medicine [address] [place] [address] Next Steps: Follow up Cosigned by Norma Gross MD at 08/24/2023 6:25 PM CDT documented in this encounter Discharge Instructions * Attachments The following attachments cannot be sent through Care Everywhere. * Amitriptyline (By mouth) (Cook Islander) * Meloxicam (By mouth) ([place] Islander) documented in this encounter Medications at Time of Discharge amLODIPine (NORVASC) 10 mg tablet Take 1 tablet (10 mg total) by mouth daily 30 tablet 4 06/25/19 25 aspirin 81 mg chewable tablet Take 1 tablet (81 mg total) by mouth daily 30 tablet 3 hydrALAZINE (APRESOLINE) 50 mg tablet Take [...] day To prevent constipation 40 tablet 3 oxyCODONE (ROXICODONE) 10 mg tabletIndications:P ain Take 1 tablet (10 mg total) by mouth every 6 (six) hours as needed for pain for up to 3 days 12 tablet 4 08/27/19 24 amitriptyline (ELAVIL) 25 mg tablet Take 1 tablet (25 mg total) by mouth nightly 30 tablet 4 09/09/19 24 capsaicin (ZOSTRIX) 0.025 % cream Apply topically 2 (two) times a day 60 g 4 09/27/19 24 carvediloL (COREG) 12.5 mg tablet Take 2 tablets (25 mg total) by mouth 2 (two) times a day with meals 120 tablet 11 4 09/09/19 24 cyclobenzaprine (FLEXERIL) 10 mg [...] day 90 capsule 1 4 09/09/19 24 meloxicam (MOBIC) 15 mg tablet Take 1 tablet (15 mg total) by mouth daily for 14 days 14 tablet 4 09/09/19 24 QUEtiapine (SEROquel) 50 mg tablet Take 1 tablet (50 mg total) by mouth nightly 09/09/19 24 documented as of this encounter Ordered Prescriptions Prescription Sig Dispense Quantity Refills Last Filled Start Date End Date oxyCODONE (ROXICODONE) 10 mg tabletIndications: Pain Take 1 tablet (10 mg total) by mouth every 6 (six) hours as needed for pain for up to 3 days 12 tablet 08/24/2023 4 meloxicam (MOBIC) 15 mg tablet Take 1 tablet (15 mg total) by mouth daily for 14 days 14 tablet 08/24/2023 4 amitriptyline (ELAVIL) 25 mg tablet Take 1 tablet (25 mg total) by mouth nightly 30 tablet 08/24/2023 4 documented in this encounter Discharge Disposition Disposition Code Departure Means Destination Comment s Discharge to home or self care documented in this encounter Progress Notes * Jennifer Lewis NP - 08/24/2023 2:23 PM CDT Daily Progress Note Division of Hospital Medicine Name: Eriberto Chau : 1990 Today's Date: August 24, 2023 Age: 33 y.o. male Admission: 08/23/2023 Bed: [id number] LOS: 0 days Subjective Chief complaint: back and abdominal pain Interval History Patient reports improvement in pain when he received IV dilaudid. Stated prn oxycodone helps some as well. Pain management consult today. Objective Scheduled Meds PRN Meds Infusions acetaminophen, 1,000 mg, oral, Q6H SUSAN amLODIPine, 10 mg, oral, Daily aspirin, 81 mg, oral, Daily capsaicin, , topical, BID carvediloL, 37.5 mg, oral, BID with meals (bkfst, dinner) cyclobenzaprine, 10 mg, oral, TID enoxaparin, 40 mg, subcutaneous, Daily-2100 ferrous sulfate, 65 mg of elemental iron, oral, TID with meals gabapentin, 300 mg, oral, TID hydrALAZINE, 50 mg, oral, TID lidocaine, 1 patch, transdermal, Q24H QUEtiapine, 50 mg, oral, Nightly senna-docusate, 2 tablet, oral, BID sodium chloride 0.9%, 0.5-20 mL, intra-catheter, Q8H SUSAN sodium chloride 0.9%, 30 mL, intravenous, PRN ibuprofen, 800 mg, oral, TID PRN ondansetron ODT, 4 mg, oral, Q6H PRN OR ondansetron, 4 mg, intravenous, Q6H PRN oxyCODONE, 10 mg, oral, Q6H PRN sodium chloride 0.9%, 0.5-20 mL, intra-catheter, PRN Vitals Most Recent Vitals: T 36.6 ??C (97.9 ??F), HR 73, BP 143/90, RR 16, SpO2 98 %. 24hr Min/Max: Temp Min: 36.5 ??C (97.7 ??F) Max: 36.6 ??C (97.9 ??F) Pulse Min: 69 Max: 92 BP Min: 102/67 Max: 166/100 Resp Min: 12 Max: 30 SpO2 Min: 91 % Max: 100 % Intake/Output Summary (Last 24 hours) at 08/24/2023 1423 Last data filed at 08/24/2023 1020 Gross per 24 hour Intake 905.83 ml Output 250 ml Net 655.83 ml Physical Exam Vitals and nursing note reviewed. Constitutional: Appearance: He is well-developed. HENT: Head: Normocephalic and atraumatic. Eyes: Extraocular Movements: Extraocular movements intact. Cardiovascular: Rate and Rhythm: Normal rate and regular rhythm. Heart sounds: Normal heart sounds. Pulmonary: Effort: Pulmonary effort is normal. Breath sounds: Normal breath sounds. Abdominal: Palpations: Abdomen is soft. Tenderness: There is abdominal tenderness. Skin: General: Skin is warm and dry. Neurological: General: No focal deficit present. Mental Status: He is alert and oriented to person, place, and time. Psychiatric: Mood and Affect: Mood normal. Behavior: Behavior normal. Lines, Drains, Airways Peripheral IV 08/23/23 18 G Right Antecubital (Active) Labs/Diagnostic Review Na 135 Cl 99 BUN 9 K 3.9 CO2 22 Cr 1.0 Mg -, G AST 33 ALT 21 Alk Phos 133 Ca 10.3 TP - Alb 4.9 Total Bili: 0.5 Direct Bili: - \ Hgb 14.0 / WBC 9.6 -------- Plt 342 / MCV 84.7 \ INR 1.18 (Labs above are the most recent result obtained in the last 24 hours. For additional labs/trends, see Epic.) I have reviewed the laboratory results. Imaging Review CT Head WO Contrast Result Date: 08/23/2023 No acute intracranial hemorrhage, large vessel territory infarction or mass effect. Dictated by: Marilia Macias MD, MPH The radiology attending physician has personally reviewed this study, and had reviewed and/or edited this written report and agrees with it. Electronically signed by: Veronica Hall M.D. CTA Chest Abdominal Aorta and Bilateral Iliofemoral Result Date: 08/23/2023 1. Aorta: Unchanged thoracoabdominal aortic dissection status [...] artery pseudoaneurysm with a narrow neck. Electronically s igned by: Collins Wills M.D. Assessment/Plan * Chronic back pain Assessment & Plan Presents with acute on chronic back and [...] Oxycodone 10 mg q6 hr second line PFO (patent foramen ovale) Assessment & Plan Filters on IV HTN (hypertension) Assessment & Plan Continue home Amlodipine 10 mg qday, Hydralazine 50 mg TID and Coreg 37.5 mg BID -BP was elevated on ED arrival and suspect secondary to pain -Resume home regimen and can up-titrate hydralazine if needed Dissection of thoracoabdominal aorta (CMS/HCC) (HCC) Assessment & Plan Follows with both vascular surgery and Dr. Felipe, now s/p repair -CTA with stable findings -Vascular surgery consulted in ED and no surgical intervention needed at this time Code status : Full Code Diet : Adult Diet Regular PT/OT Dispo Rec : / Supplementary Attestation My total encounter time on this service date was 45 minutes which was spent performing a [id number] encounter and personally completing the provider-level activities documented in the note. This includes time spent prior to the visit and after the visit in direct care of the patient. This time does not include time spent in any separately reportable services. Jennifer Lewis NP Cosigned by Norma Gross MD at 08/24/2023 2:52 PM CDT Associated attestation - Norma Gross MD - 08/24/2023 2:52 PM CDT I have seen and examined the patient on 08/24/23 in conjunction with the non- physician provider. documented in this encounter H&P Notes * Hoda Ruiz MD - 08/23/2023 3:52 PM CDT History and Physical Division [facility] Medicine Name: Eriberto Chau : 1990 Today's Date: August 23, 2023 Age: 33 y.o. male Admit Date: 08/23/2023 Bed: [facility] [id number] LOS: 0 days Subjective Eriberto Chau is a 33 y.o. male with chief complaint of abdominal pain. HPI Mr. 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 He states his symptoms first started back in April when he was first diagnosed with his dissection and has been intermittent ever since. Pain is described as severe and sharp, stabbing in sensation and located in his lower back. No recent numbness or loss of sensation (had issues with LLE numbness after his first surgery in April which has since resolved), falls, or urinary incontinence.He had 1 episode of bowel incontinence due to not making it to the bathroom in time, but continues to have the urge sensation. Today he also developed epigastric abdominal pain with nausea and one episode of NBNB emesis. He follows with vascular surgery as outpatient for his repair and was discontinued off his opioids in June after being out of the post op window. Since then he has had more issues with acute pain flares and is scheduled to see a pain management doctor at the end of August, but today he did not think he could manage with the pain anymore. Of note he presented to the ED on 07/26/23 with similar symptoms and was ultimately thought to have cannabis hyperemesis syndrome after vascular surgery ruled out further dissection complications. Today he continues to report that heat and hot showers help his pain and nausea. He last smoked marijuana 1-2 weeks ago and this current episode has been occurring for 1 week. His outpatient provider started PRN flexeril for his pain, which he does not think is providing much relief. Upon [facility] ED arrival his vital signs were notable for hypertension to 154/115 and otherwise stable on room air. Labs with CMP with elevated protein of 9.6 and Alk phos of 133 with remainder within normal limits. CBC within normal limits. Lactate initially elevated at 3.4 with repeat 1.3. Lipase normal and troponin negative x2. D-dimer elevated to 2,250. RVP negative and UA negative. 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 No acute change from prior. CT head without acute process. Vascular surgery was consulted and report imaging is stable and they do not think his pain is secondary to his dissection or repairat this time. He was given Amlodipine 10 mg PO x1, Tylenol 1000 mg PO x1, Capsaicin cream, flexeril5 mg TID, droperidol 0.625 mg IV x1, gabapentin 100 mg PO TID, Haldol 1 mg Ivx1, fentanyl 50 mcg IVx1, hydromorphone 1 mg IV x3, ketorolac 15 mg IV x1, Zofran 8 mg IV x1, & Oxycodone 5 mg PO x2 w ith persistent pain symptoms so was then admitted observation for further management. Review of Systems All other systems were reviewed and are negative except for that which is listed in the History of Present Illness. Past Medical History Past Medical History: Diagnosis Date Hypertension Kidney stones Past Surgical History: Procedure Laterality Date ABDOMINAL AORTIC ANEURYSM REPAIR No current facility-administered medications on file prior to encounter. Current Outpatient Medications on File Prior to Encounter Medication Sig ferrous sulfate 325 mg (65 mg of elemental iron) tablet Take 1 tablet (325 mg total) by mouth 3 (three) times a day with meals amLODIPine (NORVASC) 10 mg tablet Take 1 tablet (10 mg total) by mouth daily aspirin 81 mg chewable tablet Take 1 tablet (81 mg total) by mouth daily capsaicin (ZOSTRIX) 0.025 % cream Apply topically 2 (two) times a day carvediloL (COREG) 12.5 mg tablet Take 2 tablets (25 mg total) by mouth 2 (two) times a day with meals (Patient taking differently: Take 2 tablets (25 mg total) by mouth 2 (two) times a day with meals taking 37.5mg twice daily) cyclobenzaprine (FLEXERIL) 10 mg tablet Take 1 tablet (10 mg total) by mouth 3 (three) times a day as needed for muscle spasms gabapentin (NEURONTIN) 300 mg capsule Take 1 capsule (300 mg total) by mouth 3 (three) times a day hydrALAZINE (APRESOLINE) 50 mg tablet Take 1 tablet (50 mg total) by mouth 3 (three) times a day ondansetron ODT (ZOFRAN-ODT) 4 mg disintegrating tablet Take 1 tablet (4 mg total) by mouth every 8(eight) hours as needed for nausea or vomiting oxyCODONE (ROXICODONE) 5 mg immediate release tablet Take 1 tablet (5 mg total) by mouth every 4 (four) hours as needed for pain (Patient not taking: Reported on 08/03/2023) QUEtiapine (SEROquel) 50 mg tablet Take 1 tablet (50 mg total) by mouth nightly senna-docusate (PERICOLACE) 8.6-50 mg Take 2 tablets by mouth 2 (two) times a day To prevent constipation [DISCONTINUED] methocarbamoL (ROBAXIN) 750 mg tablet [DISCONTINUED] metoclopramide (REGLAN) 10 mg tablet Take 1 tablet (10 mg total) by mouth every 6 (six) hours [DISCONTINUED] oxyBUTYnin XL (DITROPAN-XL) 10 mg 24 hr tablet Take 1 tablet (10 mg total) by mouth daily for 14 days (Patient not taking: Reported on 07/20/2023) [DISCONTINUED] tamsulosin (FLOMAX) 0.4 mg extended release capsule Take 1 capsule (0.4 mg total) bymouth daily with dinner for 15 days Allergies Allergen Reactions Lisinopril Angioedema Amoxicillin Hives Social and Family History Social History Tobacco Use Smoking status: Never Smokeless tobacco: Never Substance and Sexual Activity Drug use: Not Currently Sexual activity: None Alcohol Use: Not At Risk (07/04/2023) AUDIT-C Frequency of Alcohol Consumption: Never Average Number of Drinks: Patient does not drink Frequency of Binge Drinking: Never History reviewed. No pertinent family history. Objective Vitals Most Recent Vitals: T 36.6 ??C (97.9 ??F), HR 88, BP 166/100, RR 18, SpO2 100 %. 24hr Min/Max: Temp Min: 36.6 ??C (97.9 ??F) Max: 36.7 ??C (98.1 ??F) Pulse Min: 63 Max: 97 BP Min: 114/87 Max: 179/108 Resp Min: 9 Max: 26 SpO2 Min: 91 % Max: 100 % Intake/Output Summary (Last 24 hours) at 08/23/2023 1646 Last data filed at 08/23/2023 1206 Gross per 24 hour Intake 1000 ml Output -- Net 1000 ml Physical Exam Constitutional: NAD, resting comfortably in bed on initial room arrival Eyes: PERRL, EOMI, anicteric ENT: NCAT, oropharynx normal, moist mucus membranes Lungs: Clear to auscultation in all lung almazan, unlabored Cardiovascular: RRR, normal S1 and S2, no murmurs GI: Soft, BS+, abdomen non-distended, extremely tender to palpation in the epigastric region Skin: No new rashes, lesions or bruises on visible skin Extremities: Normal without edema or cyanosis Neurologic: AOx4, CNII-XII intact, normal strength and sensation Psychiatric: Normal affect and mood I have reviewed the patient's vital signs. Lines, Drains, Airways Peripheral IV 08/23/23 18 G Right Antecubital (Active) Labs/Diagnostic Review Na 135 Cl 99 BUN 9 K 3.9 CO2 22 Cr 1.0 Mg -, G AST 33 ALT 21 Alk Phos 133 Ca 10.3 TP - Alb 4.9 Total Bili: 0.5 Direct Bili: - \ Hgb 14.0 / WBC 9.6 -------- Plt 342 / MCV 84.7 \ INR 1.18 (Labs above are the most recent result obtained in the last 24 hours. For additional labs/trends, see Epic.) I have reviewed the laboratory results. Imaging Review CT Head WO Contrast Result Date: 08/23/2023 No acute intracranial hemorrhage, large vessel territory infarction or mass effect. Dictated by: Marilia Macias MD, MPH The radiology attending physician has personally reviewed this study, and had reviewed and/or edited this written report and agrees with it. Electronically signed by: Veronica Hall M.D. CTA Chest Abdominal Aorta and Bilateral Iliofemoral Result Date: 08/23/2023 1. Aorta: Unchanged thoracoabdominal aortic dissection status [...] artery pseudoaneurysm with a narrow neck. Electronically s igned by: Collins Wills M.D. I have independently reviewed and interpreted the CT head with the following findings: no acute hemorrhage. Assessment/Plan * Chronic back pain Assessment & Plan Presents with acute on chronic back and abdominal pain, which has been an ongoing issue ever since his dissection diagnosis back in April 2023. Today reports his pain flared to the point where [...] physical exam findings occur -Pain management consult in the AM (has outpatient follow-up scheduled on 09/27/23) -Discussed how we would be limiting opioids for chronic pain while admitted -Pain control with scheduled tylenol, lidocaine patch, gabapentin 300 mg TID, flexeril 10 mg TID -PRN Ibuprofen first line and Oxycodone 10 mg q6 hr second line HTN (hypertension) Assessment & Plan Continue home Amlodipine 10 mg qday, Hydralazine 50 mg TID and Coreg 37.5 mg BID -BP was elevated on ED arrival and suspect secondary to pain -Resume home regimen and can up-titrate hydralazine if needed Dissection of thoracoabdominal aorta (CMS/HCC) (HCC) Assessment & Plan Follows with both vascular surgery and Dr. Felipe, now s/p repair -CTA with stable findings -Vascular surgery consulted in ED and no surgical intervention needed at this time PFO (patent foramen ovale) Assessment & Plan Filters on IV Code status : Prior Diet : No diet orders on file Supplementary Attestation Today, I am treating the patient for acute back pain which is in severe exacerbation, progression, or experiencing treatment side effects as evidenced by need for IV PRN hydromorphone, as described in the note. Reviewed records from the following unique sources (external institutions or providers from different services): Vascular surgery notes. Hoda Ruiz MD documented in this encounter Consult Notes * Jose Cruz Yin, - 08/24/2023 3:14 PM CDTAssociated Order(s): IP CONSULT TO PAIN MANAGEMENT Chronic/Cancer Pain Service Consult Reason for Consult: Opioid wean Chief Complaint: Pain HPI Eriberto Chau is a 33 y.o. year old male with chronic low back and abdominal pain, which began after his aortic dissection in April 2023. He is status post endovascular repair around the same time of his incident as well as a 2nd repair in May of 2023. He presented to the ED 2 days ago for epigastric abdominal pain with nausea and emesis. CT angiogram reportedly stable. Seen by vascular surgery, no plans for surgical intervention at this time. At home, he was taking Flexeril 10 mg t.i.d. p.r.n., gabapentin 300 mg t.i.d., and oxycodone 5 mg q.4 hours p.r.n.. He last filled his oxycodone on 07/08/2023 for 20 tablets. He states that he was taking up to 3 tablets of 10 mg oxycodone daily as needed. Since June, however, he has not had anyrefills. Currently, he has been continued on his home gabapentin, Flexeril, as well as started on p. r.n. hydromorphone p.r.n., and ibuprofen 800 mg p.r.n.. [...] Dilaudid. Oxycodone Dilaudid provide transient benefit for approximately3-4 hours before pain comes back to baseline. Pain Assessment Pain Score: 7 Pain Location: Back (Lumbar) Pain Orientation: Generalized Pain Radiating Towards: None Pain Descriptors: Aching Pain Frequency: Constant/continuous Pain Onset: Ongoing Clinical Progression: Not changed Patient's Stated Pain Goal: No pain Pain Interventions: Rest, Relaxation technique Past Medical History: Diagnosis Date Hypertension Kidney stones Past Surgical History: Procedure Laterality Date ABDOMINAL AORTIC ANEURYSM REPAIR Medications Prior to Admission Medication Sig Dispense Refill Last Dose amLODIPine (NORVASC) 10 mg tablet Take 1 tablet (10 mg total) by mouth daily 30 tablet 11 08/23/2023 aspirin 81 mg chewable tablet Take 1 tablet (81 mg total) by mouth daily 30 tablet 11 08/23/2023 carvediloL (COREG) 12.5 mg tablet Take 2 tablets (25 mg total) by mouth 2 (two) times a day with meals (Patient taking differently: Take 2 tablets (25 mg total) by mouth 2 (two) times a day with meals taking 37.5mg twice daily) 120 tablet 11 08/23/2023 cyclobenzaprine (FLEXERIL) 10 mg tablet Take 1 tablet (10 mg total) by mouth 3 (three) times a day as needed for muscle spasms 90 tablet 0 08/23/2023 ferrous sulfate 325 mg (65 mg of elemental iron) tablet Take 1 tablet (325 mg total) by mouth 3 (three) times a day with meals 08/23/2023 hydrALAZINE (APRESOLINE) 50 mg tablet Take 1 tablet (50 mg total) by mouth 3 (three) times a day 90tablet 11 08/23/2023 QUEtiapine (SEROquel) 50 mg tablet Take 1 tablet (50 mg total) by mouth nightly 08/23/2023 capsaicin (ZOSTRIX) 0.025 % cream Apply topically 2 (two) times a day 60 g 0 gabapentin (NEURONTIN) 300 mg capsule Take 1 capsule (300 mg total) by mouth 3 (three) times a day 90 capsule 1 ondansetron ODT (ZOFRAN-ODT) 4 mg disintegrating tablet Take 1 tablet (4 mg total) by mouth every 8(eight) hours as needed for nausea or vomiting 10 tablet 0 oxyCODONE (ROXICODONE) 5 mg immediate release tablet Take 1 tablet (5 mg total) by mouth every 4 (four) hours as needed for pain (Patient not taking: Reported on 08/03/2023) 30 tablet 0 QUEtiapine (SEROquel) 50 mg [...] not drink Frequency of Binge Drinking: Never History reviewed. No pertinent family history. Review of Systems: A complete ROS was completed and was unremarkable for any new, acute, and significant life-threatening or concerning symptoms, unless noted in the HPI. Scheduled Medications: acetaminophen, 1,000 mg, oral, Q6H SUSAN amLODIPine, 10 mg, oral, Daily aspirin, 81 mg, oral, Daily capsaicin, , topical, BID carvediloL, 37.5 mg, oral, BID with meals (bkfst, dinner) cyclobenzaprine, 10 mg, oral, TID enoxaparin, 40 mg, subcutaneous, Daily-2100 ferrous sulfate, 65 mg of elemental iron, oral, TID with meals gabapentin, 300 mg, oral, TID hydrALAZINE, 50 mg, oral, TID lidocaine, 1 patch, transdermal, Q24H QUEtiapine, 50 mg, oral, Nightly senna-docusate, 2 tablet, oral, BID sodium chloride 0.9%, 0.5-20 mL, intra-catheter, Q8H SUSAN Continuous Medications: PRN Medications: sodium chloride 0.9%, 30 mL ibuprofen, 800 mg, 800 mg at 08/23/23 1656 ondansetron ODT, 4 mg OR ondansetron, 4 mg oxyCODONE, 10 mg, 10 mg at 08/24/23 1148 sodium chloride 0.9%, 0.5-20 mL Current Facility-Administered Medications Medication Dose Route Frequency Provider Last Rate Last Admin acetaminophen (TYLENOL) tablet 1,000 mg 1,000 mg oral Q6H SUSAN Hoda Ruiz MD 1,000 mg at 08/24/23 1148 amLODIPine (NORVASC) tablet 10 mg 10 mg oral Daily Hoda Ruiz MD 10 mg at 08/24/23 0905 aspirin chewable tablet 81 mg 81 mg oral Daily Hoda Ruiz MD 81 mg at 08/24/23 0905 capsaicin (ZOSTRIX) 0.025 % cream topical BID Hoda Ruiz MD Given at 08/23/23 1216 Carrier Fluids for Secondary Infusion - 0.9% Sodium Chloride 30 mL intravenous PRN Hoda Ruiz MD carvediloL (COREG) tablet 37.5 mg 37.5 mg oral BID with meals (bkfst, dinner) Hoda Ruiz MD 37.5 mg at 08/24/23 0907 cyclobenzaprine (FLEXERIL) tablet 10 mg 10 mg oral TID Hoda Ruiz MD 10 mg at 08/24/23 0905 enoxaparin (LOVENOX) syringe 40 mg 40 mg subcutaneous Daily-2100 Hoda Ruiz MD ferrous sulfate tablet 325 mg 65 mg of elemental iron oral TID with meals Hoda Ruiz MD 325 mg at 08/23/232129 gabapentin (NEURONTIN) capsule 300 mg 300 mg oral TID Hoda Ruiz MD 300 mg at 08/24/23 0905 hydrALAZINE (APRESOLINE) tablet 50 mg 50 mg oral TID Hoda Ruiz MD 50 mg at 08/24/23 0905 ibuprofen (ADVIL,MOTRIN) tablet 800 mg 800 mg oral TID PRN Hoda Ruiz MD 800 mg at 08/23/23 1656 lidocaine (ASPERCREME) 4 % patch 1 patch 1 patch transdermal Q24H Hoda Reed MD ondansetron ODT (ZOFRAN-ODT) disintegrating tablet 4 mg 4 mg oral Q6H PRN Hoda Ruiz MD Or ondansetron (ZOFRAN) injection 4 mg 4 mg intravenous Q6H PRN Hoda Ruiz MD oxyCODONE (ROXICODONE) tablet 10 mg 10 mg oral Q6H PRN Hoda Ruiz MD 10 mg at 08/24/23 1148 QUEtiapine (SEROquel) tablet 50 mg 50 mg oral Nightly Hoda Ruiz MD 50 mg at 08/23/23 2130 senna-docusate (PERICOLACE) 8.6-50 mg per tablet 2 tablet 2 tablet oral BID Erika Ruiz MD 2 tablet at 08/24/23 0905 sodium chloride 0.9% flush 0.5-20 mL 0.5-20 mL intra-catheter Q8H SUSAN Hoda Reed MD 10 mL at 08/24/23 0538 sodium chloride 0.9% flush 0.5-20 mL 0.5-20 mL intra-catheter PRN Hoda Reed MD Dietary: Dietary Orders (From admission, onward) Start Ordered 08/23/23 165 Adult Diet Regular Diet effective now Question: ([facility]) Diet type Answer: Regular 08/23/23 1699 Objective Vitals: 24hr Min/Max: Temp Min: 97.7 ??F (36.5 ??C) Max: 97.9 ??F (36.6 ??C) Pulse Min: 69 Max: 92 BP Min: 102/67 Max: 158/107 Resp Min: 12 Max: 30 SpO2 Min: 91 % Max: 100 % Most Recent : Vitals: 08/24/23 0905 BP: 143/90 Pulse: 73 Resp: 16 Temp: 97.9 ??F (36.6 ??C) SpO2: 98% I/O last 2 completed shifts: In: 1905.8 [P.O.:100; I.V.:805.8; IV Piggyback:1000] Out: 0 I/O this shift: In: - Out: 250 [Urine:250] PHYSICAL EXAM GENERAL: Anxious appearing, mild distress, appears stated age. HEENT: Normocephalic, EOMI, nares patent, trachea midline. CARDIOVASCULAR: Well-perfused extremities. RESPIRATORY: Non-labored breathing. ABDOMINAL: Normal external appearance. PYSCH: Normal affect, euthymic mood. SKIN: Overall warm and dry. NEURO/MSK: Alert & oriented. Cognition intact. Lab/Radiology/Diagnostic Review: Recent Labs Lab Units 08/23/23 0820 WBC K/cumm 9.6 HEMOGLOBIN g/dL 14.0 HEMATOCRIT % 41.6 PLATELETS K/cumm 342 Recent Labs Lab Units 08/23/23 0834 08/23/23 0820 SODIUM mmol/L -- 135 POTASSIUM PLASMA mmol/L -- 3.9 CHLORIDE mmol/L -- 99 CO2 mmol/L -- 22 ANIONGAP mmol/L -- 14 GLUCOSE mg/dL -- 127 BUN SERUM mg/dL -- 9 CREATININE mg/dL -- 0.91 CREATININE POC mg/dL 1.0 -- CALCIUM mg/dL -- 10.3 ALBUMIN g/dL -- 4.9 ALK PHOS Units/L -- 133* ALT Units/L -- 21 AST Units/L -- 33 BILIRUBIN TOTAL mg/dL -- 0.5 Recent Labs Lab Units 08/23/23 0820 INR 1.18 Assessment Eriberto Chau is a 33 y.o. male who presents with chronic back and abdominal pain secondary to hishistory of aortic dissection and endovascular repair in April 2023, as well as in May 2023. His pain control has been difficult since then and he states that he is only finding relief with oral oxycodone and IV Dilaudid. We discussed with the patient and counseled him on the importance of avoiding opioids for chronic pain given the risk of side effects associated with opioids as well as tolerance. We informed him that our goal will be multimodal analgesia with oral medications that can be continued as outpatient. Recommendations -discontinue ibuprofen 800 mg t.i.d., start meloxicam 50 mg daily -start amitriptyline 25 mg q.h.s. We will sign off, please call with questions. Thank you for allowing us to participate in the care of this patient Jose Cruz Yin D.O. Clinical Fellow in Pain Medicine, PGY-5 Chronic/Cancer Pain Service Department of Anesthesiology [facility], [facility] [employer] If you have questions or concerns, please contact the [facility] subsurface augmentee operator to page the Pain Management service. After hours, this is not an in-house pager, please reserve non-urgent calls from [phone]. We are happy to address emergent calls 20/12. 08/24/23 3:14 PM For patients or family members viewing this note through [employer] programs: This note was written as a communication tool between healthcare providers and may contain technical language, terminology and abbreviations that is difficult to interpret without advanced medical training. If you have questions or concerns regarding what is written in this note, please request to speak with the primary medical team taking care of you or your family member or call your PCP for clarification. Please do not call the cell or pager numbers listed in this note, as the provider they are associated with may no longer be involved in your care. Cosigned by Rafiq Keller MD at 08/25/2023 10:27 AM CDT Associated attestation - Rafiq Keller MD - 08/25/2023 10:27 AM CDT I have seen and examined the patient on 08/24/2023. I agree with the findings and plan of care as documented in the resident's/fellow's note. 15mg PO Mobic daily. * Prasad Durbin MD - 08/23/2023 9:51 AM CDTAssociated Order(s): IP CONSULT TO VASCULAR SURGERY Vascular Surgery Consultation Patient Name/MRN: Eriberto Chau [id number] Reason for Consult: type B aortic dissection pw acute pain. Attending: Christine Gotti MD* Today's Date: 08/23/2023 Admitting Service: Emergency Admitting location: [facility] [id number] Admit Date: 08/23/2023 Code Status: Prior CC: Chief Complaint Patient presents with Abdominal Pain Stomach and back pain HPI: 33M PMH HTN, chronic abdominal pain, mood disorder, TBAD s/p TBE 05/02/23 that was complicated by transient LE paralysis and TEVAR 06/05/2023. Recently admitted in Jun for left ureteral stone extractionand stent placement. He presents with 3 days of abdominal and lower back pain associated with nausea and emesis this AM. He reports that he has not taken any pain medications as he does not have any since they only prescribed him a short course at this last discharge. In the ED he is AF, SBP initially 170, down to 130's with dilaudid, after which he also reports feeling much better. CTA unchanged from prior with no other acute findings. Past Medical History: Diagnosis Date Hypertension Kidney stones Past Surgical History: Procedure Laterality Date ABDOMINAL AORTIC ANEURYSM REPAIR Allergies Allergen Reactions Lisinopril Angioedema Amoxicillin Hives (Not in a hospital admission) Current Facility-Administered Medications Medication Dose Route Frequency Provider Last Rate Last Admin acetaminophen (TYLENOL) tablet 1,000 mg 1,000 mg oral Q6H [facility] Christine Gotti MD PhD esmolol in 0.9% sodium chloride (BREVIBLOC) 2,500 mg/250 mL (10 mg/mL) infusion (premix) 0-300 mcg/kg/min intravenous Titrated Hieu Harris MD Held at 08/23/23 0919 fentaNYL (SUBLIMAZE) preservative free injection 50 mcg 50 mcg intravenous PRN Hieu Harris MD 50 mcg at 08/23/23 0928 HYDROmorphone (DILAUDID) injection 1 mg 1 mg intravenous Q2H PRN Christine Gotti MD PhD 1 mg at 08/23/23 0856 Current Outpatient Medications Medication Sig Dispense Refill [...] needed for muscle spasms 90 tablet 0 gabapentin (NEURONTIN) 300 mg capsule Take 1 capsule (300 mg total) by mouth 3 (three) times a day 90 capsule 1 hydrALAZINE (APRESOLINE) 50 mg tablet Take 1 tablet (50 mg total) by mouth 3 (three) times a day 90tablet 11 methocarbamoL (ROBAXIN) 750 mg tablet metoclopramide (REGLAN) 10 mg tablet Take 1 tablet (10 mg total) by mouth every 6 (six) hours 30 tablet 0 ondansetron ODT (ZOFRAN-ODT) 4 mg [...] for pain (Patient not taking: Reported on 08/03/2023) 30 tablet 0 QUEtiapine (SEROquel) 50 mg [...] dinner for 15 days 15 capsule 0 No family history on file. Social History Tobacco Use Smoking status: Never Smokeless tobacco: Never Substance and Sexual Activity Drug use: Not Currently Sexual activity: Not on file Alcohol Use: Not At Risk (07/04/2023) AUDIT-C Frequency of Alcohol Consumption: Never Average Number of Drinks: Patient does not drink Frequency of Binge Drinking: Never Review of Systems: ROS was obtained and all negative except as is noted in HPI. Objective Vitals: Arrival Vitals [08/23/23 0805] Temp 36.7 ??C (98.1 ??F) Pulse 88 Resp 22 BP (!) 154/115 SpO2 100 % Temp src Oral Heart Rate Source Patient Position BP Location FiO2 (%) Most Recent : Vitals: 08/23/23 0930 BP: 141/79 Pulse: 69 Resp: 14 Temp: SpO2: 100% No intake/output data recorded. No intake/output data recorded. Physical exam: Constitutional: Appears comfortable. No acute distress. Neuro: Alert and oriented x3. No gross focal deficits. CVS: Regular rate and rhythm Resp: Non-labored breathing, symmetric chest wall movements Abdomen: Soft, non-distended, mildly tender diffusely Extremities: No rashes, no significant edema Neuromuscular: Motor strength grossly normal all 4 extremities. Pain to palpation of lower back midline Pulses: Palpable DPs and radials Lab/Radiology/Diagnostic Review: Laboratory review: Lab results in the last 12 hours: Recent Results (from the past 12 hour(s)) CBC with auto differential Collection Time: 08/23/23 8:20 AM Result Value Ref Range WBC 9.6 3.8 - 9.9 K/cumm Hgb 14.0 13.0 - 17.5 g/dL Hct 41.6 38.9 - 50.3 % Plt 342 150 - 400 K/cumm MPV 9.2 9.1 - 12.3 fL RBC 4.91 4.30 - 5.80 M/cumm MCV 84.7 81.3 - 96.4 fL MCH 28.5 27.1 - 33.3 pg MCHC 33.7 32.3 - 35.7 g/dL RDW CV 14.9 11.1 - 14.9 % RDW SD 46.4 35.7 - 48.1 fL NRBC abs 0.00 0.00 - 0.01 K/cumm Lipase Collection Time: 08/23/23 8:20 AM Result Value Ref Range Lipase 10 10 - 99 Units/L Comprehensive metabolic panel Collection Time: 08/23/23 8:20 AM Result Value Ref Range Sodium 135 135 - 145 mmol/L Potassium, pl 3.9 3.3 - 4.9 mmol/L Chloride 99 97 - 110 mmol/L CO2 22 22 - 32 mmol/L Anion gap 14 2 - 15 mmol/L BUN 9 6 - 25 mg/dL Creatinine 0.91 0.80 - 1.30 mg/dL Glucose 127 70 - 199 mg/dL Calcium 10.3 8.5 - 10.3 mg/dL Bilirubin, total 0.5 0.1 - 1.2 mg/dL Protein, pl 9.6 (H) 6.5 - 8.5 g/dL Albumin 4.9 3.5 - 5.0 g/dL Alk phos 133 (H) 40 - 130 Units/L ALT 21 7 - 55 Units/L AST 33 10 - 50 Units/L Protime-INR Collection Time: 08/23/23 8:20 AM Result Value Ref Range PT 13.5 10.3 - 13.7 sec INR 1.18 0.90 - 1.20 Type and screen Collection Time: 08/23/23 8:20 AM Result Value Ref Range Ellen, indirect Negative ABO Rh A Positive Sepsis Lactate w/ Reflex Collection Time: 08/23/23 8:20 AM Result Value Ref Range Sepsis Lactate 3.4 (H) 0.7 - 2.0 mmol/L Troponin I high-sensitivity series (baseline, 2hr, 4hr, 6hr) Collection Time: 08/23/23 8:20 AM Result Value Ref Range Trop I hs <4 <=35 ng/L Differential, auto Collection Time: 08/23/23 8:20 AM Result Value Ref Range Neutrophil abs 7.5 (H) 1.5 - 6.5 K/cumm Imm gran abs 0.1 0.0 - 0.1 K/cumm Lymphocyte abs 1.4 0.8 - 3.3 K/cumm Monocyte abs 0.5 0.2 - 0.8 K/cumm Eosinophil abs 0.1 0.0 - 0.5 K/cumm Basophil abs 0.0 0.0 - 0.1 K/cumm Neutrophil pct 77.9 % Imm gran pct 1.0 % Lymphocyte pct 14.8 % Monocyte pct 5.3 % Eosinophil pct 0.6 % Basophil pct 0.4 % eGFR Collection Time: 08/23/23 8:20 AM Result Value Ref Range eGFR >90 >=60 mL/min/1.73 m2 POCT creatinine Collection Time: 08/23/23 8:34 AM Result Value Ref Range Creatinine POC 1.0 0.7 - 1.3 mg/dL Assessment/Plan: Eriberto Chau is a 33 y.o. man with history of hypertension, chronic pain, type B aortic dissection s/p TBE 04/2023 and TEVAR 06/05/2023 presenting with chronic back pain and emesis. Imaging stable and does not explain his back pain or emesis. Pain improved with analgesics in ED. - No acute vascular surgery intervention indicated - No indication for admission to vascular surgery service - Recommend trial of PO pain regimen - Recommend NSGY consultation given chronic lumbar back pain following placement of lumbar drain inJanuary - Recommend Pain management service consultation - Vascular surgery will follow peripherally. Please call [phone] with vascular consult questions 20/12. The recommendations above have been discussed with attending physician. Any changes will be communicated to the primary team. Prasad Durbin MD Resident Physician Vascular Surgery Vascular Consult Vascular Inpatient Floor Vascular Outpatient Clinic Cosigned by Leo Manzano MD at 08/23/2023 7:44 PM CDT Associated attestation - Leo Manzano MD - 08/23/2023 7:44 PM CDT I have seen and examined the patient on 08/23/23. I agree with the findings and plan of care as documented in the resident's/fellow's note. CT unchanged, back pain persists since lumbar drain with negative MRI in May. Recommend pain vs NSGY evaluation for post lumbar drain pain. Continue musclerelaxers and avoidance of narcotics given lack of identifiable pain source at this time. BP controlwith home PO regimen and PRN, we will follow. documented in this encounter ED Notes * Marina Infante RN - 08/23/2023 6:26 PM CDT Bed: ED4-03 Expected date: Expected time: Means of arrival: Comments: 1R Marina Infante RN 08/23/23 1826 * Christine Gotti MD PhD - 08/23/2023 8:51 AM CDT HPI Chief Complaint Patient presents with ??? Abdominal Pain Stomach and back pain HPI 33 yo male with hx of Type B aortic dissection s/p endovascular repair in 05/21 who presents with severe abdominal pain and back pain. Back pain started three days ago and has progressively worsened.Awoke this morning with severe, 10/10 abdominal pain with nausea and vomiting. Per chart review, patient had similar presentation in June, dissection and stenting at that time stable. Endorses chest pain, nausea, vomiting, chills. Last bowel movement one day ago. No urinary complaints. Describes diffuse abdominal pain. Patient History: Patient Active Problem List Diagnosis Date Noted ??? Back pain at L4-L5 level 08/23/2023 ??? PFO (patent foramen ovale) 07/05/2023 ??? Ureteral stone 07/04/2023 ??? Left flank pain 07/04/2023 ??? Chronic back pain 06/24/2023 ??? Pseudoaneurysm following procedure ([facility]/HCC) (HCC) 06/24/2023 ??? Infrarenal abdominal aortic aneurysm, without rupture (HCC) 06/13/2023 ??? Polysubstance abuse (CMS/HCC) (HCC) 06/10/2023 ??? Moderate malnutrition (CMS/HCC) (HCC) 06/09/2023 ??? Dissection of abdominal aorta (CMS/HCC) (HCC) 06/03/2023 ??? Urinary retention 05/16/2023 ??? Epistaxis 05/13/2023 ??? Pneumonia 05/13/2023 ??? HTN (hypertension) 05/13/2023 ??? Dissection of thoracoabdominal aorta (CMS/HCC) ([facility]) 05/02/2023 ??? Dissection of aorta, [...] are negative. Physical Exam ED Triage Vitals [08/23/23 0805] Temp Pulse Resp BP SpO2 36.7 ??C (98.1 ??F) 88 22 (!) 154/115 100 % Temp src Heart Rate Source Patient Position BP Location FiO2 (%) Oral -- -- -- -- Height Height Method Weight Weight Method 1.8 m (5' 10.87 ) -- 93 kg (205 lb) -- Physical Exam Constitutional: General: He is in acute distress. Appearance: He is ill-appearing and diaphoretic. Comments: Writhing in pain. Eyes: General: No scleral icterus. Extraocular Movements: Extraocular movements intact. Cardiovascular: Rate and Rhythm: Regular rhythm. Tachycardia present. Heart sounds: Normal heart sounds. Comments: Unequal pulses left vs right Pulmonary: Effort: Pulmonary effort is normal. No respiratory distress. Breath sounds: Normal breath sounds. No wheezing. Abdominal: General: Abdomen is flat. Bowel sounds are normal. There is no distension. Tenderness: There is right CVA tenderness and left CVA tenderness. Hernia: No hernia is present. Comments: Diffuse abdominal tenderness to light palpation Skin: General: Skin is warm. Neurological: General: No focal deficit present. Mental Status: He is oriented to person, place, and time. Psychiatric: Mood and Affect: Mood normal. MDM [id number] summation: This is a 33 y.o. 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 Patient tachycardic, hypertensive, appeared uncomfortable in triage. Upon arrival to [facility], patient appears acutely ill, uncomfortable, with continued tachycardia, hypertension. Exam notable for diffuse abdominal tenderness, diffuse back pain with palpation, unequal lower extremity pulses. Differential diagnosis includes but not limited to highest concern for worsening dissection, ACS, nephrolithiasis, less likely cholecystitis, appendicitis. Plan for CBC, CMP, lipase, d-dimer, lactate, troponins. Will obtain stat CTA chest abdomen and pelvis. Consult vascular surgery. Pain and nausea control. Medical Decision Making Amount and/or Complexity of Data Reviewed Labs: ordered. Decision-making details documented in ED Course. Radiology: ordered. Decision-making details documented in ED Course. ECG/medicine tests: ordered. Risk OTC drugs. Prescription drug management. Decision regarding hospitalization. History provided by: Patient, partner Independently reviewed prior records including prior vascular notes, recent ED notes, admission notes and discharge summary. Prior imaging reviewed. In consideration of the above differential diagnosis, the following orders were placed while the patient was in the Emergency Department. See ED course for pertinent results and imaging interpretation. Orders Placed This Encounter Procedures ??? Critical Care ??? Respiratory pathogen panel Nasopharyngeal ??? CTA Chest Abdominal Aorta and Bilateral Iliofemoral ??? CT Head WO Contrast ??? CBC with auto differential ??? Lipase ??? Urinalysis reflex to microscopic ??? Comprehensive metabolic panel ??? Protime-INR ??? Type and screen ??? D-dimer, quantitative ??? Sepsis Lactate w/ Reflex ??? Troponin I high-sensitivity series (baseline, 2hr, 4hr, 6hr) ??? Sepsis Lactate w/ Reflex ??? Differential, auto ??? Troponin I high-sensitivity 2-hour ??? eGFR ??? D-dimer, quantitative ??? D-dimer, quantitative ??? DO NOT UNCHECK - ED drain layer Standing Order: Abdominal Pain ??? Vital Signs ??? Intake and Output ??? Consult to Vascular Surgery ??? Initiate droplet isolation ??? ECG 12 lead ??? Saline lock IV ??? Insert peripheral IV ??? Initiate observation services - to determine the need for further treatment or inpatient admission The patient received the following medications: Medications acetaminophen (TYLENOL) tablet 1,000 mg (1,000 mg oral Given 08/23/23 1104) Lactated Ringer's (LR) infusion (125 mL/hr intravenous New Bag 08/23/23 1029) amLODIPine (NORVASC) tablet 10 mg (10 mg oral Given 08/23/23 1104) capsaicin (ZOSTRIX) 0.025 % cream ( topical Given 08/23/23 1216) carvediloL (COREG) tablet 12.5 mg (12.5 mg oral Given 08/23/23 1104) cyclobenzaprine (FLEXERIL) tablet 5 mg (5 mg oral Given 08/23/23 1104) gabapentin (NEURONTIN) capsule 100 mg (100 mg oral Given 08/23/23 1104) tamsulosin (FLOMAX) extended release capsule 0.4 mg (has no administration in time range) oxyCODONE (ROXICODONE) tablet 5 mg (5 mg oral Given 08/23/23 1216) HYDROmorphone (DILAUDID) injection 1 mg (1 mg intravenous Given 08/23/23 0819) ondansetron (ZOFRAN) injection 8 mg (8 mg intravenous Given 08/23/23 0822) ioversoL (OPTIRAY 350) syringe 125 mL (119 mL intravenous Contrast Given 08/23/23 0900) haloperidol (HALDOL) injection 1 mg (1 mg intravenous Given 08/23/23 0925) Lactated Ringer's (LR) bolus 1,000 mL (0 mL intravenous Stopped 08/23/23 1206) ketorolac (TORADOL) 15 mg/mL injection 15 mg (15 mg intravenous Given 08/23/23 1104) droPERidol (INAPSINE) injection 0.625 mg (0.625 mg intravenous Given 08/23/23 1141) oxyCODONE (ROXICODONE) tablet 5 mg (5 mg oral Given 08/23/23 5867) Attending Summary of Care ED Course as of 08/23/23 1658 Time: 08/22 08 Comment: ATTENDING PHYSICIAN NOTE: Attestation - I have seen and examined this patient, I have discussed/reviewed the history, physical exam and assessment with the resident. We are in agreement withtreatment plan except as I have noted. HPI: 33 y.o. 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 Vomiting, lightheadedness, foot pain. History Information obtained from: family member (, chart) Chart note(s) reviewed to augment HPI: surgical note Social history: unable to obtain Exam: VS reviewed On exam, the patient is diaphoretic, writhing in pain, has unequal pulses in his lower extremities with 2+ in the left and palpable on the right. Abdominal tenderness, tachycardia. Ddx:: - high prob- dissection, ACS - moderate prob- renal stones, Latrodectus bite - low prob- UTI Plan: CTA with and without contrast and runoff, consult with the vascular team, blood pressure control Portions of the record may have been created with voice recognition software. Occasional wrong-word or '[id number]' substitutions may have occurred due to the inherent limitations of voice recognition software. Read the chart carefully and recognize, using context, where substitutions have occurred. ?? @EDCOURSE@ Final diagnoses: None Type B dissection s/p endovascular repair By: Christine Gotti MD PhD Time: 08/22 0892 Comment: As with the patient in the CT scanner, postcontrast, dissection is apparent, contacting the vascular team By: Christine Gotti MD PhD Time: 08/22 952 Value: CTA Chest Abdominal Aorta and Bilateral Iliofemoral Comment: Per the radiology team, the dissection is unchanged from prior unless likely to be the explanation for his acute abdominal pain. They do see renal stones, however, which could explain acute pain By: Christine Gotti MD PhD Time: 08/22 953 Value: CTA Chest Abdominal Aorta and Bilateral Iliofemoral Comment: I reviewed his CTs again looking for any overt signs of renal stone, I do not see any renal stones. By: Christine Gotti MD PhD Time: 08/23 955 Value: Alk phos(!): 133 Comment: Elevated but not above his baseline out of noise By: Christine Gotti MD PhD Time: 08/22 958 Value: Respiratory pathogen panel Nasopharyngeal: Influenza A RNA Not Detected Influenza B RNA Not Detected RSV RNA Not Detected COVID-19 RNA Not Detected Coronavirus 229E RNA Not Detected Coronavirus HKU1 RNA Not Detected Coronavirus NL63 RNA Not Detected Coronavirus OC43 RNA Not Detected Adenovirus DNA Not Detected Metapneumovirus RNA Not Detected Rhinovirus/Enterovirus RNA Not Detected Parainfluenza 1 RNA Not Detected Parainfluenza 2 RNA Not Detected Parainfluenza 3 RNA Not Detected Parainfluenza 4 RNA Not Detected B. pertussis DNA Not Detected B. parapertussis DNA Not Detected C. pneumoniae DNA Not Detected M. pneumoniae DNA Not Detected Comment: Does not check for all pathogens, however, does mean that it has not likely enterovirus By: Christine Gotti MD PhD Time: 08/22 1014 Comment: Further review of this patient's charts show that the patient also is a daily marijuana smoker, as last seen in the emergency department for a very similar presentation, also received aortogram and was seen by the vascular surgery team with no change in the dissection. He further describes the pain getting better with warm showers and it was thought that this was more likely cannabinoid hyperemesis By: Christine Gotti MD PhD Time: 08/22 1039 Comment: I spoke again with the patient, he says that he does not have an appointment to see the pain medicine physicians until August. He says his back pain is constantly hurting him, muscle relaxants his PCP has prescribed him have not been working, and, today, he started to get pain in his abdomen and felt like he could not take it anymore. Patient says he has 7 children at home and does not like to be in the hospital. Says he is currently on no medications, Tylenol does not help for his headaches, ibuprofen gives him hypertension. By: Christine Gotti MD PhD Time: 08/22 1056 Value: D-dimer, quantitative(!): D-Dimer 2,520(!) Comment: This resulted post scan, no pulmonary embolism seen on scan By: Christine Gotti MD PhD Time: 08/22 1127 Comment: I had a conversation with the patient and his family member about the findings as well as his home pain regimen. Patient continues to cry uncontrollably, tells me he has not going to make itto his appointment with the pain medicine specialists. I can concerned that this is going to be a patient with high ED utilization without home pain regimen. Additionally, was advised by the vascular surgery team to have NSGY consult for back pain in setting of prior lumbar drain. Additionally, the patient says he has chronic headaches, was seen by the Neurology Team in the past By: Christine Gotti MD PhD Time: 08/22 1333 Comment: Called the Pain Medicine Team (An[facility])'s clinic - - to see if it werepossible to move up appointment to facilitate discharge By: Christine Gotti MD PhD Time: 08/22 1656 Comment: Discussed with Dr. Ruiz, hospitalist they will take over patient By: Felipa Hunter MD ED Diagnoses: 1. Abdominal pain 2. Low back pain without sciatica, unspecified back pain laterality, unspecified chronicity 3. Nephrolithiasis Attending Summary of Care ED Course as of 08/23/23 1658 Time: 08/22 824 Comment: ATTENDING PHYSICIAN NOTE: Attestation - I have seen and examined this patient, I have discussed/reviewed the history, physical exam and assessment with the resident. We are in agreement withtreatment plan except as I have noted. HPI: 33 y.o. 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 Vomiting, lightheadedness, foot pain. History Information obtained from: family member (, chart) Chart note(s) reviewed to augment HPI: surgical note Social history: unable to obtain Exam: VS reviewed On exam, the patient is diaphoretic, writhing in pain, has unequal pulses in his lower extremities with 2+ in the left and palpable on the right. Abdominal tenderness, tachycardia. Ddx:: - high prob- dissection, ACS - moderate prob- renal stones, Latrodectus bite - low prob- UTI Plan: CTA with and without contrast and runoff, consult with the vascular team, blood pressure control Portions of the record may have been created with voice recognition software. Occasional wrong-word or '[id number]' substitutions may have occurred due to the inherent limitations of voice recognition software. Read the chart carefully and recognize, using context, where substitutions have occurred. ?? @EDCOURSE@ Final diagnoses: None Type B dissection s/p endovascular repair By: Christine Gotti MD PhD Time: 08/22 0831 Comment: As with the patient in the CT scanner, postcontrast, dissection is apparent, contacting the vascular team By: Christine Gotti MD PhD Time: 08/22 952 Value: CTA Chest Abdominal Aorta and Bilateral Iliofemoral Comment: Per the radiology team, the dissection is unchanged from prior unless likely to be the explanation for his acute abdominal pain. They do see renal stones, however, which could explain acute pain By: Christine Gotti MD PhD Time: 08/22 953 Value: CTA Chest Abdominal Aorta and Bilateral Iliofemoral Comment: I reviewed his CTs again looking for any overt signs of renal stone, I do not see any renal stones. By: Christine Gotti MD PhD Time: 08/23 955 Value: Alk phos(!): 133 Comment: Elevated but not above his baseline out of noise By: Chirstine Gotti MD PhD Time: 08/22 958 Value: Respiratory pathogen panel Nasopharyngeal: Influenza A RNA Not Detected Influenza B RNA Not Detected RSV RNA Not Detected COVID-19 RNA Not Detected Coronavirus 229E RNA Not Detected Coronavirus HKU1 RNA Not Detected Coronavirus NL63 RNA Not Detected Coronavirus OC43 RNA Not Detected Adenovirus DNA Not Detected Metapneumovirus RNA Not Detected Rhinovirus/Enterovirus RNA Not Detected Parainfluenza 1 RNA Not Detected Parainfluenza 2 RNA Not Detected Parainfluenza 3 RNA Not Detected Parainfluenza 4 RNA Not Detected B. pertussis DNA Not Detected B. parapertussis DNA Not Detected C. pneumoniae DNA Not Detected M. pneumoniae DNA Not Detected Comment: Does not check for all pathogens, however, does mean that it has not likely enterovirus By: Christine Gotti MD PhD Time: 08/22 1014 Comment: Further review of this patient's charts show that the patient also is a daily marijuana smoker, as last seen in the emergency department for a very similar presentation, also received aortogram and was seen by the vascular surgery team with no change in the dissection. He further describes the pain getting better with warm showers and it was thought that this was more likely cannabinoid hyperemesis By: Christine Gotti MD PhD Time: 08/22 1039 Comment: I spoke again with the patient, he says that he does not have an appointment to see the pain medicine physicians until August. He says his back pain is constantly hurting him, muscle relaxants his PCP has prescribed him have not been working, and, today, he started to get pain in his abdomen and felt like he could not take it anymore. Patient says he has 7 children at home and does not like to be in the hospital. Says he is currently on no medications, Tylenol does not help for his headaches, ibuprofen gives him hypertension. By: Christine Gotti MD PhD Time: 08/22 1056 Value: D-dimer, quantitative(!): D-Dimer 2,520(!) Comment: This resulted post scan, no pulmonary embolism seen on scan By: Christine Gotti MD PhD Time: 08/22 1127 Comment: I had a conversation with the patient and his family member about the findings as well as his home pain regimen. Patient continues to cry uncontrollably, tells me he has not going to make itto his appointment with the pain medicine specialists. I can concerned that this is going to be a patient with high ED utilization without home pain regimen. Additionally, was advised by the vascular surgery team to have NSGY consult for back pain in setting of prior lumbar drain. Additionally, the patient says he has chronic headaches, was seen by the Neurology Team in the past By: Christine Gotti MD PhD Time: 08/22 4612 Comment: Called the Pain Medicine Team ([facility])'s clinic - - to see if it werepossible to move up appointment to facilitate discharge By: Christine Gotti MD PhD Time: 08/22 1656 Comment: Discussed with Dr. Ruiz, hospitalist they will take over patient By: Felipa Hunter MD Abdominal pain Low back pain without sciatica, unspecified back pain laterality, unspecified chronicity Nephrolithiasis Hieu Harris MD Resident 08/23/23 1522 Christine Gotti MD PhD 08/23/23 1541 Christine Gotti MD PhD 08/26/23 1230 * Deniz Martinez RN - 08/23/2023 8:30 AM CDT Patient coming to the ED with severe abdominal pain and back pain. Hx of dissection and repair. Patient is guarding his abdomen and vomiting upon arrival to ED. * Jarek Robert RN - 08/23/2023 8:14 AM CDT Bed: [facility] Expected date: Expected time: Means of arrival: Comments: triage Jarek Robert RN 08/23/23 0814 documented in this encounter Miscellaneous Notes * Hospital Course - Jennifer Lewis NP - 08/24/2023 5:45 PM CDT Chronic back pain Presented with acute on chronic back and abdominal pain, which has been an ongoing issue ever sincehis dissection diagnosis back in April 2023. Reports his pain flared to the point where he now also has epigastric abdominal pain with nausea and NBNB emesis. Prior work-up has included multiple CTA since endovascular repair that are stable, whole spine MRI (06/16/23) that was negative for fracture or discitis/OM, and no evidence of further ureteral stones or pancreatitis. -Lipase within normal limits. CTA again stable here -Suspect underlying neuropathic pain from dissection vs hypersensitivity vs cannabis hyperemesis syndrome -Pain management consult- recommended discontinuing ibuprofen 800 mg t.i.d. and start meloxicam 15 mg daily, start amitriptyline 25 mg q.h.s. -Pain control per pain management recommendations at discharge. Also prescribed short course of prnoxycodone. Patient educated ok to use prn tylenol, no ibuprofen while taking meloxicam. Patient to follow up with PCP for further management. Also has outpatient pain management appointment next month. PFO (patent foramen ovale) Filters on IV HTN (hypertension) Continue home Amlodipine 10 mg qday, Hydralazine 50 mg TID and Coreg 37.5 mg BID -BP was elevated on ED arrival and suspect secondary to pain. Well controlled on home medications during admission, continued at discharge Dissection of thoracoabdominal aorta Follows with both vascular surgery and Dr. Felipe, now s/p repair -CTA with stable findings -Vascular surgery consulted in ED and no surgical intervention needed at this time * Plan of Care - Christy Suarez RN - 08/24/2023 5:41 PM CDT Goals: Clinical Goals for the Shift: Monitor vs, admin meds Summary: VSS. Medications administered (see MAR). Problem: Lack of Knowledge Goal: Ability to develop a pain control plan will improve Outcome: Adequate for Discharge Flowsheets (Taken 08/24/2023 09) Ability to develop a pain control plan will improve: Explain causes of pain and how long pain can be expected to last Teach information regarding pain management Educate pain scale for assessing level of pain Teach notification to healthcare provider of episodes of pain Problem: Medication Goal: Satisfaction with pain management medication regimen will improve Outcome: Adequate for Discharge Flowsheets (Taken 08/24/2023 09) Satisfaction with pain management medication regimen will improve: Assess satisfaction with pain management regimen Evaluate medication effects Problem: Sensory Goal: Ability to identify factors that increase pain levels will improve while working to decrease the patient's pain levels Outcome: Adequate for Discharge Flowsheets (Taken 08/24/2023899) Ability to identify factors that increase pain levels will improve while working to decrease patients pain levels: Assess pain status Explore and collaborate with complimentary and alternative therapies Encourage distraction activities Provide hot or cold therapy Assess effects of pain control measures Problem: Coping Goal: Ability to cope will improve Outcome: Adequate for Discharge Flowsheets (Taken 08/24/2023899) Ability to cope will Improve: Encourage vebalization of feelings surrounding pain Provide emotional support Perform depression screening Assess beliefs of pain Problem: Health Behavior Goal: Identification of resources available to assist in meeting health care needs will improve Outcome: Adequate for Discharge Flowsheets (Taken 08/24/2023899) Identification of resources available to assist in meeting health care needs will improve: Collaborate with pain management Refer to pain support group Collaborate with all therapies Problem: Musculoskeletal Goal: Return mobility to safest level of function Outcome: Adequate for Discharge Flowsheets (Taken 08/24/2023899) Return mobility to safest level of function: Assess patient stability and activity tolerance for standing, transferring and ambulating with or without assistive devices Assist with transfers and ambulation using safe patient handling equipment as needed Instruct patient/family in ordered activity level Goal: Maintain proper alignment of affected body part Outcome: Adequate for Discharge Flowsheets (Taken 08/24/2023899) Maintain proper alignment of affected body part: Support and protect limb and body alignment per provider's orders Instruct and reinforce with patient and family use of appropriate assistive device and precautions (e.g. spinal or hip dislocation precautions) Goal: Return ADL status to a safe level of function Outcome: Adequate for Discharge Flowsheets (Taken 08/24/2023899) Return activities of daily living status to a safe level of function: Assess patient's activities of daily living deficits and provide assistive devices as needed Assist and instruct patient to increase activity and self care Goal: Ability to perform activities at highest level will improve Outcome: Adequate for Discharge Flowsheets (Taken 08/24/2023899) Ability to perform activities at highest level will improve: Collaborate with rehabilitation services Problem: Gastrointestinal Goal: Minimal or absence of nausea and vomiting Outcome: Adequate for Discharge Flowsheets (Taken 08/24/2023899) Minimal or absence of nausea and vomiting: Monitor intake and output Provide fluid volume management Monitor diagnostic test results Provide a clean room free from unpleasant odors Problem: Discharge Planning Goal: Understanding discharge needs will improve Outcome: Adequate for Discharge Flowsheets (Taken 08/24/2023 0900) Understanding of discharge needs will improve: Discuss information regarding discharge instructions Identify discharge learning needs (meds, wound care, etc.) Identify discharge barriers Arrange for needed discharge resources and transportation as appropriate * Initial Assessments - Deann Markham RN - 08/24/2023 9:15 AM CDT CM Initial Assessment Interview Note Information Obtained From: Patient (08/24/23914) Admission Source: ED Impression: 33 yo male who presents to the hospital for abdominal pain. Plan Includes: Anticipate patient will discharge to home when medically stable. CM to follow for d/c planning and referrals as needed. Primary Source of Transportation: Does the patient need discharge transport arranged?: No (significant other to provide transport) (08/24/23914) Health Insurance Coverage: [employer] managed medicaid Prescription Coverage: yes Pharmacy: [facility]/pharmacy #[id number] [place] [id number] [facility] [address] [facility] [address] Primary Care Provider: Carl Strickland MD Prior to Admission: Functional Status: Independent with ADLs Primary Caregiver: Self Support System: Spouse/Significant Other, Parent Home Care Services: No Outpatient Services: No Durable Medical Equipment: Walker (wheeled), Rollator Living Arrangements: Spouse/significant other, Children Type of Residence: Private residence Steps in home?: Yes, Outside of home Number of steps outside: 5 steps Medication management: Independent (08/24/23914) Potential discharge needs include: Home Health: None (08/24/23914) Dialysis: NO Behavioral Health Services: Behavioral Health Services: No (08/24/23914) Patient expects to be Discharged to: Private residence, (08/24/23914) Additional Information: Patient lives with his significant other in a private residence. Address and phone number verified with face sheet. Independent with ADLs at baseline, denies home health and DME prior to admission. Support and transportation at discharge per his significant other. Role of case management explained. Patient's Identified Problem/Goal Problem: Ensure acute [...] Collaboration with patient, MD, direct care nurse, Gun Tester, and other members of the health care team to assure needed interventions completed. 2. Return patient to optimal level of self-care post discharge. 3. Roll Mechanic will follow for Discharge Planning - interventions as needed 4. Anticipated level of care at discharge 5. Planned Discharge Disposition Based on a comprehensive family assessment, assistance with instrumental activities of daily livingafter discharge will be provided by the patient. Through the course of our work I determined that the patient possesses the skill and ability to provide and monitor the care of the patient when he or she returns home. The has the capacity to provide/monitor/arrange for the care of the patient. Finally, we determined that the patient has the knowledge of available resources and that combining them with their existing resources will suffice to sustain and care for the patient when he or she returns home. The treatment team is aware of this information. All are in agreement with the aftercare plan. Deann Markham RN * Plan of Care - Genesis Bustamante RN - 08/23/2023 10:30 PM CDT Goals: Clinical Goals for the Shift: Admit and orient patient to unit. Educate about the plan of care. Administer medications as prescribed. Promote safety and comfort. Summary: Patient was admitted and oriented to unit. Complained of severe back pain relieved by Dilaudid. Pt has continuous sleep afterwards. Has recurrence at 0530H, scheduled Tylenol and Oxycodone were given. Problem: Lack of Knowledge Goal: Ability to develop a pain control plan will improve Outcome: Progressing Flowsheets (Taken 08/23/2023 2215) Ability to develop a pain control plan will improve: Explain causes of pain and how long pain can be expected to last Teach information regarding pain management Educate pain scale for assessing level of pain Teach notification to healthcare provider of episodes of pain Problem: Medication Goal: Satisfaction with pain management medication regimen will improve Outcome: Progressing Flowsheets (Taken 08/23/20232214) Satisfaction with pain management medication regimen will improve: Assess satisfaction with pain management regimen Problem: Sensory Goal: Ability to identify factors that increase pain levels will improve while working to decrease the patient's pain levels Outcome: Progressing Flowsheets (Taken 08/23/20232214) Ability to identify factors that increase pain levels will improve while working to decrease patients pain levels: Assess pain status Observe non-verbal cues of discomfort, such as restlessness, muscle tension, or altered vital signs Explore factors that precipitate, worsens, or relieves pain or discomfort Problem: Coping Goal: Ability to cope will improve Outcome: Progressing Problem: Health Behavior Goal: Identification of resources available to assist in meeting health care needs will improve Outcome: Progressing Flowsheets (Taken 08/23/20232214) Identification of resources available to assist in meeting health care needs will improve: Collaborate with pain management Problem: Musculoskeletal Goal: Return mobility to safest level of function Outcome: Progressing Goal: Maintain proper alignment of affected body part Outcome: Progressing Goal: Return ADL status to a safe level of function Outcome: Progressing Goal: Ability to perform activities at highest level will improve Outcome: Progressing Problem: Gastrointestinal Goal: Minimal or absence of nausea and vomiting Outcome: Progressing Problem: Discharge Planning Goal: Understanding discharge needs will improve Outcome: Progressing * Assessment & Plan Note - Hoda Ruiz MD - 08/23/2023 4:45 PM CDTAssociated Problem(s): HTN (hypertension) Continue home Amlodipine 10 mg qday, Hydralazine 50 mg TID and Coreg 37.5 mg BID -BP was elevated on ED arrival and suspect secondary to pain -Resume home regimen and can up-titrate hydralazine if needed * Assessment & Plan Note - Hoda Ruiz MD - 08/23/2023 4:38 PM CDTAssociated Problem(s): PFO (patent foramen ovale) Filters on IV * Assessment & Plan Note - Hoda Ruiz MD - 08/23/2023 4:38 PM CDTAssociated Problem(s): Dissection of thoracoabdominal aorta (CMS/HCC) (HCC) Follows with both vascular surgery and Dr. Felipe, now s/p repair -CTA with stable findings -Vascular surgery consulted in ED and no surgical intervention needed at this time * Assessment & Plan Note - Hoda Ruiz MD - 08/23/2023 4:38 PM CDTAssociated Problem(s): Other chronic pain Presents with acute on chronic back and [...] pain profile is the same since his May, but could consider repeating if new physical exam findings occur -Pain management consult today--- (has outpatient follow-up scheduled on 09/27/23) -Discussed how we would be limiting opioids for chronic pain while admitted -Pain control with scheduled tylenol, lidocaine patch, gabapentin 300 mg TID, flexeril 10 mg TID -PRN Ibuprofen first line and Oxycodone 10 mg q6 hr second line * ED Re-evaluation Note - Felipa Hunter MD - 08/23/2023 2:48 PM CDT ED Re-evaluation TRANSITION OF CARE: I, Felipa Hunter MD, am taking signout and assuming care of this patient from Dr Harris. I have reviewed all pertinent vital signs, allergies, and history available in the chart. 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 CTA unchanged thoracic aneurysm. Vascular surgery no intervention. Pt rquesting pain meds, pain management consulted. ED Course as of 08/23/23 1658 Time: 08/22 0825 Comment: ATTENDING PHYSICIAN NOTE: Attestation - I have seen and examined this patient, I have discussed/reviewed the history, physical exam and assessment with the resident. We are in agreement withtreatment plan except as I have noted. HPI: 33 y.o. 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 Vomiting, lightheadedness, foot pain. History Information obtained from: family member (, chart) Chart note(s) reviewed to augment HPI: surgical note Social history: unable to obtain Exam: VS reviewed On exam, the patient is diaphoretic, writhing in pain, has unequal pulses in his lower extremities with 2+ in the left and palpable on the right. Abdominal tenderness, tachycardia. Ddx:: - high prob- dissection, ACS - moderate prob- renal stones, Latrodectus bite - low prob- UTI Plan: CTA with and without contrast and runoff, consult with the vascular team, blood pressure control Portions of the record may have been created with voice recognition software. Occasional wrong-word or '[id number]' substitutions may have occurred due to the inherent limitations of voice recognition software. Read the chart carefully and recognize, using context, where substitutions have occurred. ?? @EDCOURSE@ Final diagnoses: None Type B dissection s/p endovascular repair By: Christine Gotti MD PhD Time: 08/23 0708 Comment: As with the patient in the CT scanner, postcontrast, dissection is apparent, contacting the vascular team By: Christine Gotti MD PhD Time: 08/22 0890 Value: CTA Chest Abdominal Aorta and Bilateral Iliofemoral Comment: Per the radiology team, the dissection is unchanged from prior unless likely to be the explanation for his acute abdominal pain. They do see renal stones, however, which could explain acute pain By: Christine Gotti MD PhD Time: 08/22 0954 Value: CTA Chest Abdominal Aorta and Bilateral Iliofemoral Comment: I reviewed his CTs again looking for any overt signs of renal stone, I do not see any renal stones. By: Christine Gotti MD PhD Time: 08/22 0956 Value: Howard phos(!): 133 Comment: Elevated but not above his baseline out of noise By: Christine Gotti MD PhD Time: 08/22 0959 Value: Respiratory pathogen panel Nasopharyngeal: Influenza A RNA Not Detected Influenza B RNA Not Detected RSV RNA Not Detected COVID-19 RNA Not Detected Coronavirus 229E RNA Not Detected Coronavirus HKU1 RNA Not Detected Coronavirus NL63 RNA Not Detected Coronavirus OC43 RNA Not Detected Adenovirus DNA Not Detected Metapneumovirus RNA Not Detected Rhinovirus/Enterovirus RNA Not Detected Parainfluenza 1 RNA Not Detected Parainfluenza 2 RNA Not Detected Parainfluenza 3 RNA Not Detected Parainfluenza 4 RNA Not Detected B. pertussis DNA Not Detected B. parapertussis DNA Not Detected C. pneumoniae DNA Not Detected M. pneumoniae DNA Not Detected Comment: Does not check for all pathogens, however, does mean that it has not likely enterovirus By: Christine Gotti MD PhD Time: 08/22 1014 Comment: Further review of this patient's charts show that the patient also is a daily marijuana smoker, as last seen in the emergency department 2023.02 for a very similar presentation, also received aortogram and was seen by the vascular surgery team with no change in the dissection. He further describes the pain getting better with warm showers and it was thought that this was more likely cannabinoid hyperemesis By: Christine Gotti MD PhD Time: 08/22 1039 Comment: I spoke again with the patient, he says that he does not have an appointment to see the pain medicine physicians until August. He says his back pain is constantly hurting him, muscle relaxants his PCP has prescribed him have not been working, and, today, he started to get pain in his abdomen and felt like he could not take it anymore. Patient says he has 7 children at home and does not like to be in the hospital. Says he is currently on no medications, Tylenol does not help for his headaches, ibuprofen gives him hypertension. By: Christine Gotti MD PhD Time: 08/22 1056 Value: D-dimer, quantitative(!): D-Dimer 2,520(!) Comment: This resulted post scan, no pulmonary embolism seen on scan By: Christine Gotti MD PhD Time: 08/22 1127 Comment: I had a conversation with the patient and his family member about the findings as well as his home pain regimen. Patient continues to cry uncontrollably, tells me he has not going to make itto his 30th appointment with the pain medicine specialists. I can concerned that this is going to be a patient with high ED utilization without home pain regimen. Additionally, was advised by the vascular surgery team to have NSGY consult for back pain in setting of prior lumbar drain. Additionally, the patient says he has chronic headaches, was seen by the Neurology Team in the past By: Christine Gotti MD PhD Time: 08/22 1339 Comment: Called the Pain Medicine Team (Anesthesia's)'s clinic - - to see if it werepossible to move up appointment to facilitate discharge By: Christine Gotti MD PhD Time: 08/22 1656 Comment: Discussed with Dr. Ruiz, hospitalist they will take over patient By: Felipa Hunter MD Ayoub, Malek, MD Resident 08/23/23 6093 * ED Procedure Note - Christine Gotti MD PhD - 08/23/2023 11:51 AM CDT Associated Order(s): Critical Care Procedure Critical Care Performed by: Christine Gotti MD PhD Authorized by: Christine Gotti MD PhD Critical care provider statement: As reflected in the history, physical exam, orders, notes, and/or MDM, I was personally present while the patient was critically ill and provided critical care services for 38 minutes, excluding timeinvolved in separately billable procedures. Critical care was necessary to treat or prevent imminent or life- threatening deterioration of the following condition(s): Concern for worsening aortic dissection in the setting of severe back pain w/ Hx of aortic stentingfor prior aneurysm Critical care was time spent by me providing the following: I provided emergent necessary critical care medicine [...] spent time documenting in the medical record. Christine Gotti MD PhD 08/23/23 1153 * ED Procedure Note - Christine Gotti MD PhD - 08/23/2023 8:36 AM CDT Associated Order(s): ECG 12 lead Procedure ECG 12 lead Date/Time: 08/23/2023 8:36 AM Performed by: Christine Gotti MD PhD Authorized by: Christine Gotti MD PhD Rate: ECG rate: 75 ECG rate assessment: normal Rhythm: Rhythm: sinus rhythm Ectopy: Ectopy: none QRS: QRS axis: Normal Conduction: Conduction: normal T waves: T waves comment: Biphasic in II, III, aVF, V5, V6 Previous ECG: Previous ECG comparison: similar to previous . Interpretation: Interpretation: No significant change Christine Gotti MD PhD 08/23/23 0839 documented in this encounter Plan of Treatment Pending Results Name Type Priority Associated Diagnoses Date /Time D-dimer, quantitative Lab STAT 8:20 AM CDT Scheduled Orders Name Type Priority Associated Diagnoses Orde r Schedule D-dimer, quantitative Lab STAT Onc e for 1 Occurrences starting 08/23/2023 until 08/23/2023 documented as of this encounter Procedures Procedure Name Priority Date/Time Associated Diagnosis Comments SEPSIS LACTATE WITH REFLEX Timed 08/23/2023 12:08 PM CDT URINALYSIS AND REFLEX TO MICROSCOPIC STAT 08/23/2023 12:[address] CRITICAL CARE ILL/INJURED PATIENT INIT 30-74 MIN Routine 08/23/2023 11:51 AM CDT TROPONIN I HIGH-SENSITIVITY 2-HOUR Timed 08/23/2023 10:29 AM CDT CTA CHEST ABDOMINAL AORTA AND BILATERAL ILIOFEMORAL Critical/Life-T hreatening 08/23/2023 8:[address] HEAD WO CONTRAST ED 08/23/2023 8 :58 AM CDT ECG 12-LEAD Routine 08/23/2023 8:36 AM CDT POCT CREATININE - DEVICE Routine 08/23/2023 8:34 AM CDT RESPIRATORY PATHOGEN PANEL Routine 08/23/2023 8:21 AM CDT TROPONIN I HIGH-SENSITIVITY SERIES (BASELINE, 2HR, 4HR, 6HR) STAT 08/23/2023 8:20 AM CDT SEPSIS LACTATE WITH REFLEX STAT 08/23/2023 8:20 AM CDT EGFR STAT 08/23/2023 8:20 AM CDT DIFFERENTIAL AUTO STAT 08/23/2023 8:2 0 AM CDT CBC WITH AUTO DIFFERENTIAL STAT 08/23/2023 8:20 AM CDT PROTIME-INR STAT 08/23/2023 8:20 AM CDT D-DIMER, QUANTITATIVE STAT 08/23/2023 8:20 AM CDT TYPE AND SCREEN STAT 08/23/2023 8:20 AM CDT LIPASE STAT 08/23/2023 8:20 AM CDT COMPREHENSIVE METABOLIC PANEL STAT 08/23/2023 8:20 AM CDT documented in this encounter Results * Sepsis Lactate w/ Reflex (08/23/2023 12:08 PM CDT) Sepsis Lactate 1.3 0.7 - 2.0 mmol/L Blood 08/23/2023 12:0 8 PM CDT 08/23/2023 12:21 PM CDT us Christine Gotti MD PhD LAB BLOOD ORDERABLES Final Result [facility] Department [place] [address] * (ABNORMAL) Urinalysis reflex to microscopic (08/23/2023 12:08 PM CDT) Color, ur Straw Yellow Clarity, ur Clear Clear [facility] Specific gravity, ur >1.042(H) 1.003 - 1.030 [facility] pH, urine 7.5 [facility] Comment: Interpretive Data ? Urine pH is affected by diet, medications, systemic acid-base disturbances, and renal tubular function. ??pH may affect urinary stone formation. ??For example, urine pH below 6.0 may help reduce the tendency for calcium phosphate stones and pH greater than 6.0 may reduce the tendency for uric acid stone formation. Source: [place] [employer] Current Interpretive Data was last revised on 2017 Protein, ur ql Trace Negative [facility] Glucose, ur ql Trace(A) Negative [facility] Ketones, ur Negative Negative [facility] Bilirubin, ur Negative Negative [facility] Blood, ur Negative Negative [facility] Urobilinogen, ur <2.0 <2.0 mg/dL [facility] Nitrite, ur Negative Negative [facility] Leukocyte esterase, ur Negative Negative [facility] UA reflex comment Reflex conditions for microscopic UA not met. [facility] Urine 08/23/2023 12:0 8 PM CDT 08/23/2023 12:22 PM CDT us Christine Gotti MD PhD LAB URINE ORDERABLES Final Result [facility] [place] [address] * CT CRITICAL CARE ILL/INJURED PATIENT INIT 30-74 MIN (08/23/2023 11:51 AM CDT) Narrative Christine Gotti MD PhD - 08/23/2023 11:51 AM CDT Christine Gotti MD PhD ? 08/23/2023 11:53 AM Critical Care Performed by: Christine Gotti MD PhD Authorized by: Christine Gotti MD PhD ?? Critical care provider statement: As reflected in the history, physical exam, orders, notes, and/or MDM, I was personally present while the patient was critically ill and provided critical care services for 38 minutes, excluding time involved in separately billable procedures. ??Critical care was necessary to treat or prevent imminent or life-threatening deterioration of the following condition(s): ?? Concern for worsening aortic dissection in the setting of severe back pain w/ Hx of aortic stenting for prior aneurysm ??Critical care was time spent by me providing the following: ? I provided emergent necessary critical care medicine [...] spent time documenting in the medical record. us Christine Gotti MD PhD IN CLINIC/BEDSIDE ORD ERABLES Final Result * Troponin I high-sensitivity 2-hour (08/23/2023 10:29 AM CDT) Trop I hs <4 <=35 ng/L Comment: Interpretive Data For further hscTnI resources including the diagnostic algorithm and an aid in interpretation, copy and paste this link: [email or web address].testcatalog.org/show/hsTrop-[email or web address] Current Interpretive Data last revised 2019. Trop I hs delta 0 ng/L [facility] Trop I hs interp Insignificant [facility] Blood 08/23/2023 10:2 9 AM CDT 08/23/2023 10:43 AM CDT us Christine Gotti MD PhD LAB BLOOD ORDERABLES Final Result [facility] [place] [address] * CT Head WO Contrast (08/23/2023 8:58 AM CDT) Anatomical Region Laterality Modality Head and Neck N/A Computed Tomogra phy 08/23/2023 10:1 5 AM CDT Impressions 08/23/2023 10:36 AM CDT No acute intracranial hemorrhage, large vessel territory infarction or mass effect. Dictated by: Marilia Macias MD, MPH The radiology attending physician has personally reviewed this study, and had reviewed and/or edited this written report and agrees with it. Electronically signed by: Veronica Hall M.D. Narrative 08/23/2023 10:36 AM CDT EXAMINATION: CT head without contrast HISTORY: 33-year-old male with past medical history of thoracic aortic aneurysm status post repair presenting with nausea, vomiting, lightheadedness and foot pain. TECHNIQUE: CT of the head was performed with images acquired from skull base to vertex without intravenous contrast. COMPARISON: None Available. FINDINGS: Topogram demonstrates no lytic lesions or fractures. There is no acute intracranial hemorrhage. Ventricles are of normal size and morphology. No mass effect or midline shift is present. The hilliard-white matter differentiation is normal. The visualized portions of the orbits are normal. The visualized portions of the mastoids are normal. Moderate mucosal thickening of the right sphenoid sinus. ??No fractures are identified. Incidentally noted partially empty sella. Procedure Note Veronica Hall MD - 08/23/2023 EXAMINATION: CT head without contrast HISTORY: 33-year-old male with past medical history of thoracic aortic aneurysm status post repair presenting with nausea, vomiting, lightheadedness and foot pain. TECHNIQUE: CT of the head was performed with images acquired from skull base to vertex without intravenous contrast. COMPARISON: None Available. FINDINGS: Topogram demonstrates no lytic lesions or fractures. There is no acute intracranial hemorrhage. Ventricles are of normal size and morphology. No mass effect or midline shift is present. The hilliard-white matter differentiation is normal. The visualized portions of the orbits are normal. The visualized portions of the mastoids are normal. Moderate mucosal thickening of the right sphenoid sinus. No fractures are identified. Incidentally noted partially empty sella. IMPRESSION: No acute intracranial hemorrhage, large vessel territory infarction or mass effect. Dictated by: Marilia Macias MD, MPH The radiology attending physician has personally reviewed this study, and had reviewed and/or edited this written report and agrees with it. Electronically signed by: Veronica Hall M.D. us Christine Gotti MD PhD IMG CT PROCEDURES Fin al Result * CTA Chest Abdominal Aorta and Bilateral Iliofemoral (08/23/2023 8:58 AM CDT) Anatomical Region Laterality Modality Body N/A Computed Tomogra phy 08/23/2023 9:40 AM CDT Impressions 08/23/2023 9:40 AM CDT 1. Aorta: Unchanged thoracoabdominal aortic dissection status post endovascular aortic repair. ??Persistent filling of the false lumen and aneurysmal dilation of the distal descending thoracic aorta/juxtadiaphragmatic abdominal aorta. ??No acute change from the prior study to account for the patient's symptoms. 2. 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 3. 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 4. 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 Electronically signed by: Collins Wills M.D. Narrative 08/23/2023 9:40 AM CDT EXAMINATION: ??CT ANGIOGRAPHY OF CHEST, ABDOMEN, PELVIS, AND LOWER EXTREMITIES WITH CONTRAST HISTORY: Prior aortic dissection status post endovascular repair of the thoracic and abdominal aorta, with back pain. TECHNIQUE: CT angiography of the chest, abdomen, pelvis, and lower extremities was performed following the uneventful intravenous administration of 119 ml [id number]-[id number]. Vascular 3D images were generated on a dedicated workstation and also reviewed. COMPARISON: 08/03/2023 FINDINGS: VASCULAR FINDINGS: No intramural hematoma. ??A thoracic endovascular aortic repair proximal attachment site is just distal to the left common carotid origin. ??A left subclavian stent is angulated but unchanged in configuration, and widely patent. ??The arch vessels are all widely patent. ??There is unchanged filling of the false lumen of an aortic dissection within the distal thoracic aorta just above the diaphragmatic hiatus, extending to the level of the infrarenal abdominal aorta. ??Aneurysmal dilation of the abdominal aorta to a maximum of approximately 4.3 x 4.2 cm is unchanged. ??The celiac artery arises from the false lumen, with unchanged angulation and proximal narrowing but distal patency. ??The superior mesenteric and right renal arteries arise from the stented true lumen and are widely patent. ??The left renal artery arises likely from both the true and false lumens of the site of fenestration and is widely patent. ??The inferior mesenteric artery arises from the true lumen and is patent. The distal attachment site of the stent graft is in the infrarenal abdominal aorta just above the origin of the inferior mesenteric artery. ??The dissection flap propagates through the infrarenal abdominal aorta into the left common iliac artery, similar in configuration to the prior exam. Pelvic Vessels: R. Common iliac artery: ??no significant stenosis R. External iliac artery: ??no significant stenosis R. Internal iliac artery: ??no significant stenosis L. Common iliac artery: ??no significant stenosis L. External iliac artery: ??no significant stenosis L. Internal iliac artery: ??no significant stenosis Right Lower Extremity: R. Common femoral artery: ??no significant stenosis R. Profunda femoris artery: ??no significant stenosis R. Superficial femoral artery: ??no significant stenosis R. Popliteal artery: ??no significant stenosis R. Anterior tibial artery: ??no significant stenosis. ??Patent at least to the level of the ankle, with thready flow within the ankle and the dorsalis pedis R. Tibioperoneal trunk: ??no significant stenosis R. Posterior tibial artery: ??no significant stenosis R. Peroneal artery: ??no significant stenosis R. Dorsalis pedis artery: ??Reconstituted from the peroneal artery with thready flow. R. Plantar artery: ??no significant stenosis Left Lower Extremity: L. Common femoral artery: ??no significant stenosis. ??A 5 mm pseudoaneurysm with a narrow neck, on series 508 image 598, is unchanged. L. Profunda femoris artery: ??no significant stenosis L. Superficial femoral artery: ??no significant stenosis L. Popliteal artery: ??no significant stenosis L. Anterior tibial artery: ??Diminutive with nonopacification distally L. Tibioperoneal trunk: ??no significant stenosis L. Posterior tibial artery: ??no significant stenosis L. Peroneal artery: ??no significant stenosis L. Dorsalis pedis artery: ??Reconstituted from the peroneal artery with no significant stenosis L. Plantar artery: ??no significant stenosis NON-VASCULAR FINDINGS: No pleural effusion, pneumothorax, pneumonia, pulmonary edema, or suspicious pulmonary nodules. ??Scattered calcified granulomas. No supraclavicular, axillary, mediastinal, or hilar lymphadenopathy. No pulmonary embolism. ??Normal heart size without pericardial effusion. ??The esophagus is normal caliber. A cavernous hemangioma measuring 2 cm in segment 4A on series 508 image 234 is unchanged. ??No suspicious liver lesions or intrahepatic ductal dilation. ??The gallbladder and common bile duct are normal. The spleen, pancreas, adrenal glands are normal. ??Scattered simple bilateral renal cysts and small nonobstructing stones without hydronephrosis or masses. ??The urinary bladder, prostate gland and seminal vesicles are normal. ??Scattered colonic diverticula without diverticulitis, obstruction, or inflammation. ??The appendix is normal. ??Small bowel loops are normal caliber. ??No lymphadenopathy, free fluid, or free intraperitoneal air. ??No suspicious bone lesions. Procedure Note Collins Wills MD - 08/23/2023 EXAMINATION: CT ANGIOGRAPHY OF CHEST, ABDOMEN, PELVIS, AND LOWER EXTREMITIES WITH CONTRAST HISTORY: Prior aortic dissection status post endovascular repair of the thoracic and abdominal aorta, with back pain. TECHNIQUE: CT angiography of the chest, abdomen, pelvis, and lower extremities was performed following the uneventful intravenous administration of 119 ml Optiray-350. Vascular 3D images were generated on a [...] and false lumens of the site of fenestration and is widely patent. The inferior mesenteric artery arises from the true lumen and is patent. The distal attachment site of the stent [...] nodules. Scattered calcified granulomas. No supraclavicular, axillary, mediastinal, or hilar lymphadenopathy. No pulmonary embolism. Normal heart [...] free intraperitoneal air. No suspicious bone lesions. IMPRESSION: 1. Aorta: Unchanged thoracoabdominal aortic dissection status [...] neck. Electronically signed by: Collins Wills M.D. us Christine Gotti MD PhD IMG CT PROCEDURES Fin al Result * ECG 12-LEAD (08/23/2023 8:36 AM CDT) [place]ative [facility] [place]/23/[place]23 8:36 AM CDT Christine Gotti MD PhD ? 08/23/2023 ??8:39 AM ECG 12 lead Date/Time: 08/23/2023 8:36 AM Performed by: Christine Gotti MD PhD Authorized by: Christine Gotti MD PhD ?? Rate: ??ECG rate: ??75 ??ECG rate assessment: normal ?? Rhythm: ??Rhythm: sinus rhythm ?? Ectopy: ??Ectopy: none ?? QRS: ??QRS axis: ??Normal Conduction: ??Conduction: normal ?? T waves: ??T waves comment: ??Biphasic in II, III, aVF, V5, V6 Previous ECG: ??Previous ECG comparison: similar to previous . Interpretation: ??Interpretation: No significant change ?? us Christine Gotti MD PhD ECG ORDERABLES Final Result Performing Organization Address City/[facility] Co de Phone Number [facility] * POCT creatinine (08/23/2023 8:34 AM CDT) [facility] Creatinine POC 1.0 0.7 - 1.3 mg/dL Blood 08/23/2023 8:34 AM CDT 08/23/2023 8:34 AM CDT us Christine Gotti MD PhD LAB POCT ORDERABLES - DEVICE Final Result Performing Organization Address [facility] Co de Phone Number [facility] [place] [address] * Respiratory pathogen panel Nasopharyngeal (08/23/2023 8:21 AM CDT) [facility] Influenza A RNA Not Detected Not Detected Influenza B RNA Not Detected Not Detected [facility] RSV RNA Not Detected Not Detected [facility] COVID-19 RNA Not Detected Not Detected [facility] Coronavirus 229E RNA Not Detected Not Detected [facility] Coronavirus HKU1 RNA Not Detected Not Detected [facility] Coronavirus NL63 RNA Not Detected Not Detected [facility] Coronavirus OC43 RNA Not Detected Not Detected [facility] Adenovirus DNA Not Detected Not Detected [facility] Metapneumovirus RNA Not Detected Not Detected [facility] Rhinovirus/Enterov irus RNA Not Detected Not Detected [facility] Parainfluenza 1 RNA Not Detected Not Detected [facility] Parainfluenza 2 RNA Not Detected Not Detected [facility] Parainfluenza 3 RNA Not Detected Not Detected [facility] Parainfluenza 4 RNA Not Detected Not Detected [facility] B. pertussis DNA Not Detected Not Detected [facility] B. parapertussis DNA Not Detected Not Detected [facility] C. pneumoniae DNA Not Detected Not Detected [facility] M. pneumoniae DNA Not Detected Not Detected [facility] Nasopharyngeal 08/23/2023 8: 21 AM CDT 08/23/2023 8:45 AM CDT Narrative [facility] - 08/23/2023 9:59 AM CDT Is the Patient experiencing symptoms consistent with COVID?->Yes Surveillance testing for transplant patient?->No ??Interpretive Data The Cellity FilmArray Respiratory Panel (RP2.1) assay is a [...] assay has FDA clearance for testing of R[place] SEWER swabs. ??The performance of additional specimen types has been assessed by the performing laboratory. ??The performance characteristics of this assay have been determined by [facility]. Current interpretive data was last revised on 22. Christine Gotti MD PhD LAB MICROBIOLOGY - [facility] ORDERABLES Final Result [facility] Department [place] [address] * (ABNORMAL) D-dimer, quantitative (08/23/2023 8:20 AM CDT) D-Dimer 2,520(H) <=499 ng/mL FEU Comment: Interpretive data FDA approved the D-dimer, in conjunction with a low or moderate pretest probability score, to exclude venous thromboembolic events (VTE) (PE and DVT) in outpatients when the D-dimer result is < 500 ng/ml FEU. ?? Evidence supports using an age-adjusted D-dimer cut-off for outpatients older than 50 (age x 10) to improve specificity without sacrificing sensitivity. Example: age 68, VTE cut-off 680 ng/ml FEU. References; Schani HT et al. Brit Med J. 2013;346:f2492. Yue et al. Annals Int Med. 2015;163:701-11. Current interpretive data was last revised on 2019. Blood 08/23/2023 8:20 AM CDT 08/23/2023 8:43 AM CDT us Christine Gotti MD PhD LAB BLOOD ORDERABLES Final Result [facility] Department [place] [address] * eGFR (08/23/2023 8:20 AM CDT) eGFR >90 >=60 mL/min/1. 73 m2 Comment: [...] interpretive data was last reviewed 2021. Blood 08/23/2023 8:20 AM CDT 08/23/2023 8:38 AM CDT us Christine Gotti MD PhD LAB BLOOD ORDERABLES Final Result [facility] Department [place] [address] * (ABNORMAL) Differential, auto (08/23/2023 8:20 AM CDT) Neutrophil abs 7.5(H) 1.5 - 6.5 K/cumm Imm gran abs 0.1 0.0 - 0.1 K/cumm [facility] Lymphocyte abs 1.4 0.8 - 3.3 K/cumm [facility] Monocyte abs 0.5 0.2 - 0.8 K/cumm [facility] Eosinophil abs 0.1 0.0 - 0.5 K/cumm [facility] Basophil abs 0.0 0.0 - 0.1 K/cumm [facility] Neutrophil pct 77.9 % [facility] Comment: Interpretive Data Percent cell count reference ranges are not reported, since discordance with absolute values may lead to misinterpretation of CBC data. Current Interpretive Data was last revised on 2017. Imm gran pct 1.0 % [facility] Comment: Interpretive Data Percent cell count reference ranges are not reported, since discordance with absolute values may lead to misinterpretation of CBC data. Current Interpretive Data was last revised on 2017. Lymphocyte pct 14.8 % [facility] [...] was last revised on 2017. Eosinophil pct 0.6 % [facility] Data was last revised on 2017. Blood 08/23/2023 8:20 AM CDT 08/23/2023 8:38 AM CDT Christine Gotti MD PhD LAB BLOOD ORDERABLES Final Result Performing Organization Address City/[facility] Co de Phone Number [facility] [place] [address] * Troponin I high-sensitivity series (baseline, 2hr, 4hr, 6hr) (08/23/2023 8:20 AM CDT) Trop I hs <4 <=35 ng/L Comment: Interpretive Data For further hscTnI resources including the diagnostic algorithm and an aid in interpretation, copy and paste this link: [email or web address] Current Interpretive Data last revised 2019. Blood 08/23/2023 8:20 AM CDT 08/23/2023 8:38 AM CDT Christine Gotti MD PhD LAB BLOOD ORDERABLES Final Result Performing Organization Address City/[facility]/ZIP Co de Phone Number [facility] [place] [address] * (ABNORMAL) Sepsis Lactate w/ Reflex (08/23/2023 8:20 AM CDT) Sepsis Lactate 3.4(H) 0.7 - 2.0 mmol/L Blood 08/23/2023 8:20 AM CDT 08/23/2023 8:34 AM CDT Christine Gotti MD PhD LAB BLOOD ORDERABLES Final Result Performing Organization Address [facility] de Phone Number [facility] [place] [address] * Type and screen (08/23/2023 8:20 AM CDT) Ellen, indirect Negative ABO Rh A Positive [facility] Blood 08/23/2023 8:20 AM CDT 08/23/2023 8:55 AM CDT Narrative [facility] - 08/23/2023 9:46 AM CDT Has the patient had Daratumumab or Isatuximab in the past 6 months?->Unknown Christine Gotti MD PhD LAB BLOOD BANK TEST O RDERABLES Final Result Performing Organization Address [facility] de Phone Number [facility] [place] [address] * Protime-INR (08/23/2023 8:20 AM CDT) PT 13.5 10.3 - 13.7 sec INR 1.18 0.90 - 1.20 [facility] Comment: Interpretive data Oral anticoagulant therapeutic ranges: Venous thromboembolism prophylaxis or treatment: 2.0-3.0 CARDIOLOGY Standard range: 2.0-3.0 High-intensity range: 2.5-3.5 Refer to indication-specific guidelines for appropriate target ranges for prosthetic heart valve replacement. Current interpretive data was last revised on 2019. Blood 08/23/2023 8:20 AM CDT 08/23/2023 8:43 AM CDT Christine Gotti MD PhD LAB BLOOD ORDERABLES Final Result Performing Organization Address [facility] de Phone Number [facility] Department [place] [address] * (ABNORMAL) Comprehensive metabolic panel (08/23/2023 8:20 AM CDT) Sodium 135 135 - 145 mmol/L Potassium, pl 3.9 3.3 - 4.9 mmol/L [facility] Comment:Hemolyzed; Potassium value may be falsely elevated by as much as 0.6-1.0 mmol/L. Suggest redraw and reanalysis. Chloride 99 97 - 110 mmol/L [facility] CO2 22 22 - 32 mmol/L [facility] Anion gap 14 2 - 15 mmol/L [facility] BUN 9 6 - 25 mg/dL [facility] Creatinine 0.91 0.80 - 1.30 mg/dL [facility] Glucose 127 70 - 199 mg/dL [facility] 20[facility]. Calcium 10.3 8.5 - 10.3 mg/dL [facility] Bilirubin, total 0.5 0.1 - 1.2 mg/dL [facility] Protein, pl 9.6(H) 6.5 - 8.5 g/dL [facility] Albumin 4.9 3.5 - 5.0 g/dL [facility] Alk phos 133(H) 40 - 130 Units/L [facility] ALT 21 7 - 55 Units/L [facility] AST 33 10 - 50 Units/L [facility] Comment:Hemolyzed; result ma y be falsely elevated Blood 08/23/2023 8:20 AM CDT 08/23/2023 8:38 AM CDT Christine Gotti MD PhD LAB BLOOD ORDERABLES Final Result [facility] [place] [address] * Lipase (08/23/2023 8:20 AM CDT) [facility] Lipase 10 10 - 99 Units/L Blood (Blood, Venous) 08/23/2023 8:20 AM CDT 08/23/2023 8:38 AM CDT Christine Gotti MD PhD LAB BLOOD ORDERABLES Final Result Performing Organization Address [facility] Co de Phone Number [facility] [place] [address] * CBC with auto differential (08/23/2023 8:20 AM CDT) [facility] WBC 9.6 3.8 - 9.9 K/cumm Hgb 14.0 13.0 - 17.5 g/dL [facility] Hct 41.6 38.9 - 50.3 % [facility] Plt 342 150 - 400 K/cumm [facility] MPV 9.2 9.1 - 12.3 fL [facility] RBC 4.91 4.30 - 5.80 M/cumm [facility] MCV 84.7 81.3 - 96.4 fL [facility] MCH 28.5 27.1 - 33.3 pg [facility] MCHC 33.7 32.3 - 35.7 g/dL [facility] RDW CV 14.9 11.1 - 14.9 % [facility] RDW SD 46.4 35.7 - 48.1 fL [facility] NRBC abs 0.00 0.00 - 0.01 K/cumm [facility] Blood (Blood, Venous) 08/23/2023 8:20 AM CDT 08/23/2023 8:38 AM CDT us Christine Gotti MD PhD LAB BLOOD ORDERABLES Final Result [facility] Department [place] [address] documented in this encounter Visit Diagnoses Diagnosis Other chronic pain [G89.29]- Primary Other chronic pain Abdominal pain Abdominal pain, unspecified site Low back pain without sciatica, unspecified back pain laterality, unspecified chronicity Nephrolithiasis Calculus of kidney Dissection of thoracoabdominal aorta (CMS/HCC) (HCC) Chronic back pain Unspecified backache PFO (patent foramen ovale) Ostium secundum type atrial septal defect HTN (hypertension) Unspecified essential hypertension documented in this encounter Admitting Diagnoses Diagnosis Back pain at L4-L5 level Abdominal pain Abdominal pain, unspecified site documented in this encounter Administered Medications Inactive Administered Medications - up to 3 most recent administrations Medication Order MAR Action Action Date Dose Rate Site acetaminophen (TYLENOL) tablet 1,000 mg 1,000 mg, oral, Every 6 hours scheduled, First dose on Tue08/23/23 at 0818 Given 08/24/2023 5:36 PM CDT 1,000 mg Given 08/24/2023 11:48 AM CDT 1,000 mg Given 08/24/2023 5:37 AM CDT 1,000 mg amitriptyline (ELAVIL) tablet 25 mg 25 mg, oral, Nightly, First dose on Tue08/24/23 at 2100 amLODIPine (NORVASC) tablet 10 mg 10 mg, oral, Daily, First dose on Tue08/23/23 at 1041 Given 08/23/2023 11:04 AM CDT 10 mg amLODIPine (NORVASC) tablet 10 mg 10 mg, oral, Daily, First dose on Tue08/24/23 at 0900 Given 08/24/2023 9:05 AM CDT 10 mg aspirin chewable tablet 81 mg 81 mg, oral, Daily, First dose on Tue08/23/23 at 1650 Given 08/24/2023 9:05 AM CDT 81 mg Given 08/23/2023 4:57 PM CDT 81 mg capsaicin (ZOSTRIX) 0.025 % cream topical, 2 times daily, First dose on Tue08/23/23 at 1044, Apply to affected area: other, abdomen Given 08/23/2023 12:16 PM CDT carvediloL (COREG) tablet 12.5 mg 12.5 mg, oral, Daily, First dose on Tue08/23/23 at 1044 Given 08/23/2023 11:04 AM CDT 12.5 mg carvediloL (COREG) tablet 37.5 mg 37.5 mg, oral, 2 times daily with meals (bkfst, dinner), First dose on Tue08/23/23 at 1800 Given 08/24/2023 5:36 PM CDT 37.5 mg Given 08/24/2023 9:07 AM CDT 37.5 mg Given 08/23/2023 4:56 PM CDT 37.5 mg cyclobenzaprine (FLEXERIL) tablet 10 mg 10 mg, oral, 3 times daily, First dose (after last modification) on Tue08/23/23 at 2100 Given 08/24/2023 5:36 PM CDT 10 mg Given 08/24/2023 9:05 AM CDT 10 mg Given 08/23/2023 9:30 PM CDT 10 mg cyclobenzaprine (FLEXERIL) tablet 5 mg 5 mg, oral, 3 times daily, First dose on Tue08/23/23 at 1044 Given 08/23/2023 11:04 AM CDT 5 mg droPERidol (INAPSINE) injection 0.625 mg 0.625 mg, intravenous, Administer over 5 Minutes, Once, On Tue08/23/23 at 1140, For 1 dose Given 08/23/2023 11:41 AM CDT 0.625 mg droPERidol (INAPSINE) injection 2.5 mg 2.5 mg, intravenous, Administer over 5 Minutes, Once, On Tue08/23/23 at 1720, For 1 dose Given 08/23/2023 5:22 PM CDT 2.5 mg fentaNYL (SUBLIMAZE) preservative free injection 50 mcg 50 mcg, intravenous, As needed, 1st line for pain, Starting on Tue08/23/23 at 0834 Given 08/23/2023 9:28 AM CDT 50 mcg ferrous sulfate tablet 325 mg 325 mg (65 mg of elemental iron), oral, 3 times daily with meals, First dose on Tue08/23/23 at 1800 Given 08/24/2023 5:36 PM CDT 325 mg Given 08/23/2023 9:30 PM CDT 325 mg gabapentin (NEURONTIN) capsule 100 mg 100 mg, oral, 3 times daily, First dose on Tue08/23/23 at 1044 Given 08/23/2023 11:04 AM CDT 100 mg gabapentin (NEURONTIN) capsule 300 mg 300 mg, oral, 3 times daily, First dose (after last modification) on Tue08/23/23 at 2100 Given 08/24/2023 5:36 PM CDT 300 mg Given 08/24/2023 9:05 AM CDT 300 mg Given 08/23/2023 9:30 PM CDT 300 mg haloperidol (HALDOL) injection 1 mg 1 mg, intravenous, Once, On Tue08/23/23 at 0922, For 1 dose, If administered IV push, administer over 5 min for adults Given 08/23/2023 9:25 AM CDT 1 mg hydrALAZINE (APRESOLINE) tablet 50 mg 50 mg, oral, 3 times daily, First dose on Tue08/23/23 at 1650 Given 08/24/2023 5:36 PM CDT 50 mg Given 08/24/2023 9:05 AM CDT 50 mg Given 08/23/2023 4:57 PM CDT 50 mg HYDROmorphone (DILAUDID) injection 0.5 mg 0.5 mg, intravenous, Administer over 2 Minutes, Once, On Tue08/23/23 at 1954, For 1 dose Given 08/23/2023 10:03 PM CDT 0.5 mg HYDROmorphone (DILAUDID) injection 1 mg 1 mg, intravenous, Administer over 2 Minutes, Once, On Tue08/23/23 at 0816, For 1 dose Given 08/23/2023 8:19 AM CDT 1 mg HYDROmorphone (DILAUDID) injection 1 mg 1 mg, intravenous, Administer over 2 Minutes, Every 2 hours PRN, 1st line for pain, Starting on Tue08/23/23 at 0818 Given 08/23/2023 10:31 AM CDT 1 mg Given 08/23/2023 8:56 AM CDT 1 mg ibuprofen (ADVIL,MOTRIN) tablet 800 mg 800 mg, oral, 3 times daily PRN, 1st line for pain, Starting on Tue08/23/23 at 1649 Given 08/23/2023 4:56 PM CDT 800 mg ioversoL (OPTIRAY 350) syringe 125 mL 125 mL, intravenous, Once in imaging, contrast, Starting on Tue08/23/23 at 0859, For 1 dose Contrast Given 08/23/2023 9:00 AM CDT 119 mL ketorolac (TORADOL) 15 mg/mL injection 15 mg 15 mg, intravenous, Once, On Tue08/23/23 at 1046, For 1 dose, For Adult IV push, administer over 15 seconds Given 08/23/2023 11:04 AM CDT 15 mg Lactated Ringer's (LR) bolus 1,000 mL 1,000 mL, intravenous, Once, On Tue08/23/23 at 1000, For 1 dose New Bag 08/23/2023 10:29 AM CDT 1,000 mL Lactated Ringer's (LR) infusion 125 mL/hr, intravenous, Continuous, Starting on Tue08/23/23 at 1000 New Bag 08/23/2023 10:29 AM CDT 125 mL/hr 125 mL/hr meloxicam (MOBIC) tablet 15 mg 15 mg, oral, Daily, First dose on Tue08/24/23 at 1800 ondansetron (ZOFRAN) injection 4 mg 4 mg, intravenous, Administer over 2 Minutes, Every 6 hours PRN, nausea, vomiting, if not tolerating PO, Starting on Tue08/23/23 at 1650, Indications: Nausea and VomitingIndications:Nausea and Vomiting ondansetron (ZOFRAN) injection 8 mg 8 mg, intravenous, Administer over 2 Minutes, Once, On Tue08/23/23 at 0821, For 1 dose Given 08/23/2023 8:22 AM CDT 8 mg ondansetron ODT (ZOFRAN-ODT) disintegrating tablet 4 mg 4 mg, oral, Every 6 hours PRN, nausea, vomiting, Starting on Tue08/23/23 at 1650, Indications: Nausea and VomitingIndications:Nausea and Vomiting oxyCODONE (ROXICODONE) tablet 10 mg 10 mg, oral, Every 6 hours PRN, 2nd line for pain, Starting on Tue08/23/23 at 2000, Indications: PainIndications:Pain Given 08/24/2023 5:54 PM CDT 10 mg Given 08/24/2023 11:48 AM CDT 10 mg Given 08/24/2023 5:38 AM CDT 10 mg oxyCODONE (ROXICODONE) tablet 5 mg 5 mg, oral, Every 6 hours PRN, 2nd line for pain, Starting on Tue08/23/23 at 1157, Indications: PainIndications:Pain Given 08/23/2023 12:16 PM CDT 5 m g oxyCODONE (ROXICODONE) tablet 5 mg 5 mg, oral, Once, On Tue08/23/23 at 1514, For 1 dose, Indications: PainIndications:Pain Given 08/23/2023 3:17 PM CDT 5 mg QUEtiapine (SEROquel) tablet 50 mg 50 mg, oral, Nightly, First dose on Tue08/23/23 at 2100 Given 08/23/2023 9:30 PM CDT 50 mg senna-docusate (PERICOLACE) 8.6-50 mg per tablet 2 tablet 2 tablet, oral, 2 times daily, First dose on Tue08/24/23 at 0900 Given 08/24/2023 9:05 AM CDT 2 tablets sodium chloride 0.9% flush 0.5-20 mL 0.5-20 mL, intra-catheter, Every 8 hours scheduled, First dose on Tue08/24/23 at 0600, Flush volume based on line type and size. , Indications: FlushingIndications:Flushing Given 08/24/2023 5:38 AM CDT 10 mL documented in this encounter Discontinued Medications Medication Sig Discontinue Reason Start Date End Da te tamsulosin (FLOMAX) 0.4 mg extended release capsule Take 1 capsule (0.4 mg total) by mouth daily with dinner for 15 days Therapy completed 07/08/2023 08/23/2023 oxyBUTYnin XL (DITROPAN-XL) 10 mg 24 hr tablet Take 1 tablet (10 mg total) by mouth daily for 14 days Therapy completed 07/09/2023 08/23/2023 metoclopramide (REGLAN) 10 mg tablet Take 1 tablet (10 mg total) by mouth every 6 (six) hours Therapy completed 07/26/2023 08/23/2023 methocarbamoL (ROBAXIN) 750 mg tablet Therapy completed 07/29/2023 08/23/2023 QUEtiapine (SEROquel) 50 mg tablet Take 1 tablet (50 mg total) by mouth nightly Error 05/16/2023 08/24/2023 oxyCODONE (ROXICODONE) 5 mg immediate release tabletIndications:Pain Take 1 tablet (5 mg total) by mouth every 4 (four) hours as needed for pain Stop Taking at Discharge 07/08/2023 08/24/2023 documented as of this encounter Historical Medications * This list may reflect changes made after this encounter. QUEtiapine (SEROquel) 50 mg tablet Take 1 tablet (50 mg total) by mouth nightly 09/09/2023 ferrous sulfate 325 mg (65 mg of elemental iron) tablet Take 1 tablet (325 mg total) by mouth 3 (three) times a day with meals 07/25/2023 09/09/2023 added in this encounter Active and Recently Administered Medications Times are shown in CDT. Scheduled Medication Order 08/22/2023 08/23/2023 08/24/2023 acetaminophen (TYLENOL) tablet 1,000 mg 1,000 mg, oral, Every 6 hours scheduled, First dose on Tue08/23/23 at 0818 0830 (Hold - Provider: Denzi Martinez RN - Reason: Other - Comment: Patient vomiting)1104 (Given - Provider: Deniz Martinez RN)1844 (Given - Provider: Michael Lopez RN) 0050 (Not Given - Provider: Genesis Bustamante RN - Reason: Other - Comment: Patient is comfortably sleeping on bed)0537 (Given - Provider: Genesis Bustamante, BRIA)1148 (Given - Provider: Christy Suarez, BRIA)1736 (Given - Provider: Christy Suarez, BRIA) amitriptyline (ELAVIL) tablet 25 mg 25 mg, oral, Nightly, First dose on Tue08/24/23 at 2100 amLODIPine (NORVASC) tablet 10 mg (CANCELED) 10 mg, oral, Daily, First dose on Tue08/23/23 at 1041 1104 (Given - Provider: Deniz Martinez RN) amLODIPine (NORVASC) tablet 10 mg 10 mg, oral, Daily, First dose on Tue08/24/23 at 0900 0905 (Given - Provid er: Christy Suarez RN) aspirin chewable tablet 81 mg 81 mg, oral, Daily, First dose on Tue08/23/23 at 1650 1657 (Given - Provider: Deniz Martinez RN) 0905 (Given - Provider: Christy Suarez RN) capsaicin (ZOSTRIX) 0.025 % cream topical, 2 times daily, First dose on Tue08/23/23 at 1044, Apply to affected area: other, abdomen 1216 (Given - Provider: Deniz Martinez RN)2105 (Not Given - Provider: Latanya Landa RN - Reason: Order parameters not met) 1150 (Not Given - Provider: Christy Suarez RN - Reason: Patient/family refused) carvediloL (COREG) tablet 12.5 mg (CANCELED) 12.5 mg, oral, Daily, First dose on Tue08/23/23 at 1044 1104 (Given - Provider: Deniz Martinez RN) carvediloL (COREG) tablet 37.5 mg 37.5 mg, oral, 2 times daily with meals (bkfst, dinner), First dose on Tue08/23/23 at 1800 1656 (Given - Provider: Deniz Martinez RN) 0907 (Given - Provider: Christy Suarez RN)1736 (Given - Provider: Christy Suarez RN) cyclobenzaprine (FLEXERIL) tablet 10 mg 10 mg, oral, 3 times daily, First dose (after last modification) on Tue08/23/23 at 2100 2130 (Given - Provider: Latanya Landa RN) 0905 (Given - Provider: Christy Suarez RN)1736 (Given - Provider: Christy Suarez RN) cyclobenzaprine (FLEXERIL) tablet 5 mg (CANCELED) 5 mg, oral, 3 times daily, First dose on Tue08/23/23 at 1044 1104 (Given - Provider: Deniz Martinez, BRIA) droPERidol (INAPSINE) injection 0.625 mg (COMPLETED) 0.625 mg, intravenous, Administer over 5 Minutes, Once, On Tue08/23/23 at 1140, For 1 dose 1141 (Given - Provider: Deniz Martinez, BRIA) droPERidol (INAPSINE) injection 2.5 mg (COMPLETED) 2.5 mg, intravenous, Administer over 5 Minutes, Once, On Tue08/23/23 at 1720, For 1 dose 1722 (Given - Provider: Deniz Martinez, BRIA) enoxaparin (LOVENOX) syringe 40 mg 40 mg, subcutaneous, Daily (for enoxaparin), First dose on Tue08/24/23 at 2100, Indications: Deep Vein Thrombosis Prevention ferrous sulfate tablet 325 mg 325 mg (65 mg of elemental iron), oral, 3 times daily with meals, First dose on Tue08/23/23 at 1800 2130 (Given - Provider: Latanya Landa RN) 0928 (Not Given - Provider: Christy Suarez RN - Reason: Patient/family refused)1150 (Not Given - Provider: Christy Suarez RN - Reason: Patient/family refused)1736 (Given - Provider: Christy Suarez RN) gabapentin (NEURONTIN) capsule 100 mg (CANCELED) 100 mg, oral, 3 times daily, First dose on Tue08/23/23 at 1044 1104 (Given - Provider: Deniz Martinez, BRIA) gabapentin (NEURONTIN) capsule 300 mg 300 mg, oral, 3 times daily, First dose (after last modification) on Tue08/23/23 at 2100 2130 (Given - Provider: Latanya Landa RN) 0905 (Given - Provider: Christy Suarez RN)1736 (Given - Provider: Christy Suarez, BRIA) haloperidol (HALDOL) injection 1 mg (COMPLETED) 1 mg, intravenous, Once, On Tue08/23/23 at 0922, For 1 dose, If administered IV push, administer over 5 min for adults 0925 (Given - Provider: Deniz Martinez RN - Comment: stop time 09) hydrALAZINE (APRESOLINE) tablet 50 mg 50 mg, oral, 3 times daily, First dose on Tue08/23/23 at 1650 1657 (Given - Provider: Deniz Martinez RN)2202 (Not Given - Provider: Genesis Bustamante RN - Reason: Order parameters not met) 0905 (Given - Provider: Christy Suarez RN)1736 (Given - Provider: Christy Suarez RN) HYDROmorphone (DILAUDID) injection 0.5 mg (COMPLETED) 0.5 mg, intravenous, Administer over 2 Minutes, Once, On Tue08/23/23 at 1954, For 1 dose 2203 (Given - Provider: Genesis Bustamante RN) HYDROmorphone (DILAUDID) injection 1 mg (COMPLETED) 1 mg, intravenous, Administer over 2 Minutes, Once, On Tue08/23/23 at 0816, For 1 dose 0819 (Given - Provider: Deniz Martinez RN - Comment: stop time 08) ketorolac (TORADOL) 15 mg/mL injection 15 mg (COMPLETED) 15 mg, intravenous, Once, On Tue08/23/23 at 1046, For 1 dose, For Adult IV push, administer over 15 seconds 1104 (Given - Provider: Deniz Martinez RN) Lactated Ringer's (LR) bolus 1,000 mL (COMPLETED) 1,000 mL, intravenous, Once, On Tue08/23/23 at 1000, For 1 dose 1029 (New Bag - Provider: Deniz Martinez RN)1206 (Stopped - Provider: Deniz Martinez RN) lidocaine (ASPERCREME) 4 % patch 1 patch 1 patch, transdermal, Administer over 12 Hours, Every 24 hours, First dose on Tue08/23/23 at 1650, Apply to affected area: back 1701 (Not Given - Provider: Deniz Martinez RN - Reason: Patient/family refused) 1741 (Not Given - Provider: Christy Suarez RN - Reason: Patient/family refused) meloxicam (MOBIC) tablet 15 mg 15 mg, oral, Daily, First dose on Tue08/24/23 at 1800 1800 (Due) ondansetron (ZOFRAN) injection 8 mg (COMPLETED) 8 mg, intravenous, Administer over 2 Minutes, Once, On Tue08/23/23 at 0821, For 1 dose 0822 (Given - Provider: Deniz Martinez RN - Comment: stop time 0824) oxyCODONE (ROXICODONE) tablet 5 mg (COMPLETED) 5 mg, oral, Once, On Tue08/23/23 at 1514, For 1 dose, Indications: Pain 1517 (Given - Provider: Deniz Martinez RN) QUEtiapine (SEROquel) tablet 50 mg 50 mg, oral, Nightly, First dose on Tue08/23/23 at 2100 2130 (Given - Provider: Latanya Lanad RN) senna-docusate (PERICOLACE) 8.6-50 mg per tablet 2 tablet 2 tablet, oral, 2 times daily, First dose on Tue08/24/23 at 0900 0905 (Given - Provid er: Christy Suarez RN) sodium chloride 0.9% flush 0.5-20 mL 0.5-20 mL, intra-catheter, Every 8 hours scheduled, First dose on Tue08/24/23 at 0600, Flush volume based on line type and size. , Indications: Flushing 0538 (Given - Provid er: Genesis Bustamante RN)1348 (Canceled Entry - Provider: Christy Suarez RN) Continuous Medication Order 08/22/2023 08/23/2023 08/24/2023 Lactated Ringer's (LR) infusion (CANCELED) 125 mL/hr, intravenous, Continuous, Starting on Tue08/23/23 at 1000 1029 (New Bag - Provider: Se harris Martinez, BRIA)1651 (Stopped - Provider: Deniz Martinez, BRIA) PRN Medication Order 08/22/2023 08/23/2023 08/24/2023 Carrier Fluids for Secondary Infusion - 0.9% Sodium Chloride 30 mL, intravenous, As needed, For priming tubing and/or flushing, Starting on Tue08/24/23 at 0247, 0-250 ml/hr to flush line after IV infusions when no maintenance IV ordered. Infuse 30mL at the same rate as the secondary infusion. Run as primary IV, not intended for KVO. fentaNYL (SUBLIMAZE) preservative free injection 50 mcg (CANCELED) 50 mcg, intravenous, As needed, 1st line for pain, Starting on Tue08/23/23 at 0834 0928 (Given - Provider: Deniz Martinez RN - Comment: stop time 0930) HYDROmorphone (DILAUDID) injection 1 mg (CANCELED) 1 mg, intravenous, Administer over 2 Minutes, Every 2 hours PRN, 1st line for pain, Starting on Tue08/23/23 at 0818 0856 (Given - Provider: Deniz Martinez RN - Comment: stop time 0858)1031 (Given - Provider: Deniz Martinez RN - Comment: OK to give 30 mins early per MD Gotti) ibuprofen (ADVIL,MOTRIN) tablet 800 mg (CANCELED) 800 mg, oral, 3 times daily PRN, 1st line for pain, Starting on Tue08/23/23 at 1649 1656 (Given - Provider: Deniz Martinez, BRIA) ioversoL (OPTIRAY 350) syringe 125 mL (COMPLETED) 125 mL, intravenous, Once in imaging, contrast, Starting on Tue08/23/23 at 0859, For 1 dose 0900 (Contrast Given - Provider: Kailee Wayne, RT) ondansetron (ZOFRAN) injection 4 mg(Linked Group 1) 4 mg, intravenous, Administer over 2 Minutes, Every 6 hours PRN, nausea, vomiting, if not tolerating PO, Starting on Tue08/23/23 at 1650, Indications: Nausea and Vomiting ondansetron ODT (ZOFRAN-ODT) disintegrating tablet 4 mg(Linked Group 1) 4 mg, oral, Every 6 hours PRN, nausea, vomiting, Starting on Tue08/23/23 at 1650, Indications: Nausea and Vomiting oxyCODONE (ROXICODONE) tablet 10 mg 10 mg, oral, Every 6 hours PRN, 2nd line for pain, Starting on Tue08/23/23 at 2000, Indications: Pain 1844 (Given - Provider: Michael Lopez, RN) 0538 (Given - Provider: Genesis Bustamante, BRIA)1148 (Given - Provider: Christy Suarez, BRIA)1754 (Given - Provider: Christy Suarez, BRIA) oxyCODONE (ROXICODONE) tablet 5 mg (CANCELED) 5 mg, oral, Every 6 hours PRN, 2nd line for pain, Starting on Tue08/23/23 at 1157, Indications: Pain 1216 (Given - Provider: Deniz Martinez, BRIA) sodium chloride 0.9% flush 0.5-20 mL 0.5-20 mL, intra-catheter, As needed, line care, Starting on Tue08/24/23 at 0247, Flush volume based on line type and size. Flush before and after each use. , Indications: Flushing Linked Groups Order Group 1: ondansetron ODT (ZOFRAN-ODT) disintegrating tablet 4 mgJump to med 4 mg, oral, Every 6 hours PRN, nausea, vomiting, Starting on Tue08/23/23 at 1650, Indications: Nausea and Vomiting Or ondansetron (ZOFRAN) injection 4 mgJump to med 4 mg, intravenous, Administer over 2 Minutes, Every 6 hours PRN, nausea, vomiting, if not tolerating PO, Starting on Tue08/23/23 at 1650, Indications: Nausea and Vomiting documented in this encounter Orders Medications Ordered That Gerardo ht Not Have Been Administered Count Last Ordered Date First Ordered Date amitriptyline (ELAVIL) tablet 25 mg 1 08/23 Carrier Fluids for Secondary Infusion - 0.9% Sodium Chloride 08/24/2023 enoxaparin (LOVENOX) syringe 40 mg 1 2023 meloxicam (MOBIC) tablet 15 mg 1 08/24/2023 sodium chloride 0.9% flush 0.5-20 mL 07/29 esmolol in 0.9% sodium chlor radha (BREVIBLOC) 2,500 mg/250 mL (10 mg/mL) infusion (premix) 1 08/23/2023 haloperidol (HALDOL) injection 1 mg 1 08/22 ioversoL (OPTIRAY 350) syringe 100 mL 1 lidocaine (ASPERCREME) 4 % patch 1 patch 1 08/23/2023 ondansetron (ZOFRAN) injection 4 mg 1 08/22 ondansetron ODT (ZOFRAN-ODT) disintegrating tablet 4 mg 1 08/23/2023 oxyCODONE (ROXICODONE) tablet 10 mg 2 08/22 tamsulosin (FLOMAX) extended release capsule 0.4 mg 1 08/23/2023 Lab Orders Without Results Count Last Ordered D ate First Ordered Date D-DIMER, QUANTITATIVE 1 08/23/2023 POCT CREATININE - DEVICE 1 08/23/2023 Diet Count Last Ordered Date First Orde red Date ADULT DISCHARGE DIET 1 08/24/2023 Nursing Count Last Ordered Date First Orde red Date DISCHARGE ACTIVITY 1 08/24/2023 DISCHARGE CALL PROVIDER 4 08/24/2023 WEIGH PATIENT 1 08/24/2023 Consult Count Last Ordered Date First Orde red Date IP CONSULT TO PAIN MANAGEMENT 1 08/24/2023 IP CONSULT TO VASCULAR SURGERY 1 08/23/2023 IV Count Last Ordered Date First Orde red Date INSERT PERIPHERAL IV 1 08/23/2023 SALINE LOCK IV 1 08/23/2023 Admission Count Last Ordered Date First Orde red Date INITIATE OBSERVATION SERVICES 1 08/23/2023 Discharge Count Last Ordered Date First Orde red Date DISCHARGE PATIENT 1 08/24/2023 documented in this encounter Additional Health Concerns Infection Onset Date Last Indicated Resolved Time COVID: Suspected 08/23/2023 08/23/2023 08/23/2023 10:00 AM CDT documented as of this encounter Care Teams Bus Matron Relationship Specialty Start Date End Date Carl Strickland MD [address] [facility] 1 [place] [address] PCP - General Internal Medicine 06/06/23 Leo Manzano MD [address] [facility] [id number] [place] [address] Surgeon Vascular Surgery 05/16/23 documented as of this encounter
--- OUTSIDE RECORDS SUMMARY | 2024-05-30 05:36 | XMS_ITS | Encounter Summary ---
Author Organization [facility] Healthcare Address [address] [place] [address] Care Team Providers Care Information Management Specialist Name Role Phone Leo Manzano MD Unavailable [phone] Carl Strickland MD Primary Care Provider Encounter Details Date Type Department Care Team (Late st Contact Info) Description 09/08/2023 Orders Only [facility] Medicine [facility] [address] [facility] [address] [place] [address] Ronald Dimas MD [address] [place], [place] [id number] Social History Tobacco Use Types Packs/Day Years Used Date Smoking Tobacco: Never Smokeless Tobacco: Never Alcohol Use Standard Drinks/Week Comments Not Currently 0 (1 standard drink = 0.6 oz pur e alcohol) [facility] Utilities Answer Date Recorded In the past 12 months has [employer] electric, gas, oil, or water company threatened [...] or slept in a penitentiary (including now)? No 07/06/2023 Personal Safety Answer Date Recorded Have you ever been in or are you currently in a harmful physical or emotional relationship or is someone making you feel afraid or unsafe? Denies 09/05/2023 Sex and Gender Information Value Date Recorded Sex Assigned at Not on file Legal Sex Male 3:42 AM ENERGY CONSERVATION TECHNICIAN Gender Identity Not on file Sexual Orientation Straight 06/12/2023 11 :43 PM ENERGY CONSERVATION TECHNICIAN documented as of this encounter Plan of Treatment Not on file documented as of this encounter Procedures Procedure Name Priority Date/Time Associated Diagnosis Comments HLA DISEASE ASSOCIATION B 27 Routine 09/08/2023 8:40 AM CDT documented in this encounter Results * HLA disease association B 27 (09/08/2023 8:40 AM CDT) HLA-B27 interp HLA-B*27 is Negative. HISTOTRAC 09/08/2023 8:40 AM CDT 09/09/2023 8:47 AM CDT Narrative HISTOTRAC - 09/09/2023 8:47 AM CDT HLA-B typing is performed using the reverse sequence specific oligonucleotide (r-SSO) method, which is based on an FDA approved IVD kit and validated by the [facility] HLA laboratory. Interpretive comments: HLA-B*27 positivity confers increased risk for ankylosing spondylitis or nonradiographic axial spondyloarthritis. The absence of HLA-B*27 may help rule out these diagnoses Expected: ??HLA-B*27 has been found in 74% to 89% of patients with either nonradiographic axial spondyloarthritis or ankylosing spondylitis. The absolute risk of spondyloarthritis in persons with HLA-B*27 is 2% to 10%. (N Engl J Med 2016;374:2563-74) Testing performed at the [facility] Laboratory, [address] [place] [address], 5th floor, [place], [address]. [place] # [id number]. Oscar Ross M.D., Ph.D., HLA Beauty School Instructor Sierra Gonzalez, Ph.D., Architectural Design Lecturer, [facility] Clinical Laboratories Current methodology and interpretive comments were last revised on 12/20/2016 us Ronald Dimas MD LAB BLOOD ORDERABLES Final Result HISTOTRAC documented in this encounter Visit Diagnoses Not on filedocumented in this encounter Care Teams Information Management Specialist Relationship Specialty Start Date End Date Carl Strickland MD [address] [facility] 1 [place] [address] PCP - General Internal Medicine 06/06/23 Leo Manzano MD [address] [facility] [address] [place] [address] Surgeon Vascular Surgery 05/16/23 documented as of this encounter
--- OUTSIDE RECORDS SUMMARY | 2024-05-30 05:36 | XMS_ITS | Encounter Summary ---
Author Organization [facility] Healthcare Address [address] [place] [address] Care Team Providers Care Public Address Announcer Name Role Phone Leo Manzano MD Unavailable [phone] Carl Strickland MD Primary Care Provider Genevieve Hunt RN Unavailable [phone] Reason for Visit * Reason Comments Chart Review Encounter Details Date Type Department Care Team (Late st Contact Info) Description 09/12/2023 SHOP/CHAP Initial Eligibility Review [facility] CASE [facility]NAGEMENT [address] [place] [address] Genevieve Hunt, RN [address] [facility] [address] [place], [place] [id number] Social History Tobacco Use Types Packs/Day Years Used Date Smoking Tobacco: Never Smokeless Tobacco: Never Alcohol Use Standard Drinks/Week Comments Not Currently 0 (1 standard drink = 0.6 oz pur e alcohol) [facility] Utilities Answer Date Recorded In the [...] declined 09/12/2023 How often do you attend amish or holiness serv ices? Patient declined 09/12/2023 Do you [...] in a chcf (including now)? Patient declined 09/12/2023 Personal Safety Answer Date Recorded Have you ever been in or are you currently in a harmful physical or emotional relationship or is someone making you feel afraid or unsafe? Denies 09/05/2023 Sex and Gender Information Value Date Recorded Sex Assigned at Not on file Legal Sex Male 3:42 AM SUPERVISOR SPINNING Gender Identity Not on file Sexual Orientation Straight 06/12/2023 11 :43 PM SUPERVISOR SPINNING documented as of this encounter Plan of Treatment Not on file documented as of this encounter Visit Diagnoses Not on filedocumented in this encounter Care Teams Public Address Announcer Relationship Specialty Start Date End Date Carl Strickland MD [address] [facility] 1 [place] [address] PCP - General Internal Medicine 06/06/23 Leo Manzano MD [address] [facility] [address] [place] [address] Surgeon Vascular Surgery 05/16/23 Genevieve Hunt RN [address] [facility] [address] [place] [address] SHOP Outpatient Flaker Tender 09/12/23 09/12/23 documented as of this encounter
--- OUTSIDE RECORDS SUMMARY | 2024-05-30 05:37 | XMS_ITS | Encounter Summary ---
Author Organization [facility] Address [address] [place] [address] Phone Care Team Providers Care Director Of Audiology Name Role Phone Leo Manzano MD Unavailable [phone] Carl Strickland MD Primary Care Provider Encounter Details Date Type Department Care Team (Late st Contact Info) Description 07/01/2023 Telephone [facility] Cardiology [address] [facility] Advanced Medicine [address]th [place] [address] [place] [address] Joaquín Abarca MD [address] [facility] [address] [place] [address] Social History Tobacco Use Types Packs/Day Years Used Date Smoking Tobacco: Never Smokeless Tobacco: Never Alcohol Use Standard Drinks/Week Comments Not Currently 0 (1 standard drink = 0.6 oz pur e alcohol) [facility] Utilities Answer Date Recorded In the past 12 months has [employer] electric, gas, oil, or water company threatened to shut off services in your home? No 06/15/2023 Social Connection and Isolat ion Panel [NHANES] Answer Date Recorded In a typical week, how many times do you talk on the phone with family, friends, or neighbors? More than three times a week 06/15/2023 How often do you get togethe r with friends or relatives? More than three times a week 06/15/2023 How often do you attend chur ch or voodoo services? More than 4 times per year 06/15/2023 Do you belong to any clubs o r organizations such as cheondoism groups, unions, fraternal or athletic groups, or school groups? No 06/15/2023 How often do you attend meet ings of the clubs or organizations you belong to? Never 06/15/2023 Are you , , di vorced, , never , or living with a partner? Living with partner 06/15/2023 Overall Financial Resource Strain (CARDIA) Answe r Date Recorded How hard is it for you to pa y for the very basics like food, housing, medical care, and heating? Somewhat hard 06/15/2023 PHQ-2 Answer Date Recorded PHQ-2 Total Score (If total score is 3 or more points, staff should administer the PHQ-9) 0 06/24/2023 Hunger Vital Sign Answer Date Recorded Within the past 12 months, y ou worried that your food would run out before you got the money to buy more. Never true 06/15/19 24 Within the past 12 months, t he food you bought just didn't last and you didn't have money to get more. Never true 06/15/2023 PRAPARE - Transportation Answer Date Re corded In the past 12 months, has l ack of transportation kept you from medical appointments or from getting medications? No 05/30 In the past 12 months, has l ack of transportation kept you from meetings, work, or from getting things needed for daily living? No 06/15/2023 Housing Stability Vital Sign Answer Caden e Recorded In the last 12 months, was t here a time when you were not able to pay the mortgage or rent on time? No 06/15/2023 In the last 12 months, how many places have you lived? 1 06/15/2023 In the last 12 months, was t here a time when you did not have a steady place to sleep or slept in a correction (including now)? No 06/15/2023 Personal Safety Answer Date Recorded Getting School Help Needed Denies 05/09 Sex and Gender Information Value Date Recorded Sex Assigned at Not on file Legal Sex Male 3:42 AM DIGITAL MUSIC INSTRUCTOR Gender Identity Not on file Sexual Orientation Straight 06/12/2023 11 :43 PM DIGITAL MUSIC INSTRUCTOR documented as of this encounter Miscellaneous Notes * Addendum Note - Idalia Dodson RN - 07/01/2023 12:16 PM CSTAddended by: IDALIA DODSON on: 07/01/2023 12:16 PM Modules accepted: Orders TAL MUSIC INSTRUCTOR * Telephone Encounter - Idalia Dodson RN - 07/01/2023 12:15 PM DIGITAL MUSIC INSTRUCTOR Patient and girlfriend aware of reccs- advised to monitor BP and roseann with update next week-understanding verbalized of all TAL MUSIC INSTRUCTOR * Telephone Encounter - Joaquín Abarca MD - 07/01/2023 10:31 AM DIGITAL MUSIC INSTRUCTOR Discontinue the lisinopril. Give us an update in his symptoms in the next week. Follow the blood pressure and give us an update TAL MUSIC INSTRUCTOR * Telephone Encounter - Idalia Dodson RN - 07/01/2023 10:18 AM DIGITAL MUSIC INSTRUCTOR Girlfriend called reports woke up yesterday with - swelling in his lips and a non productive cough-she reports his Grandma who is an RN told him it could be treated to his Lisinopril Reports BP 06/30 AM- 116/62 06/29 120'/range Reports had one BP in the afternoon it was 146/ came back doiwn to low 120's I called the pt who reports he woke up yesterday coughing and fat lip on his upper left lip -- reports swelling is down today - denies problems with swallowing or breathing denies hives or rash- reports has continued on the lisinopril TAL MUSIC INSTRUCTOR * Telephone Encounter - Elisabeth Eid - 07/01/2023 9:49 AM CST Rima Pt girlfriend would like to speak to nurse about the lisinopril pt is taking. TAL MUSIC INSTRUCTOR documented in this encounter Plan of Treatment Not on file documented as of this encounter Visit Diagnoses Not on filedocumented in this encounter Discontinued Medications Medication Sig Discontinue Reason Start Date End Da te lisinopriL (PRINIVIL,ZESTRIL) 20 mg tablet Take 1 tablet (20 mg total) by mouth daily 06/26/2023 07/01/2023 documented as of this encounter Care Teams Director Of Audiology Relationship Specialty Start Date End Date Carl Strickland MD [address] [facility] 1 [place] [address] PCP - General Internal Medicine 06/06/23 Leo Manzano MD [address] [facility] [address] [place] [address] Surgeon Vascular Surgery 05/16/23 documented as of this encounter
--- OUTSIDE RECORDS SUMMARY | 2024-05-30 05:37 | XMS_ITS | Encounter Summary ---
Author Organization [facility] Healthcare Address [address] [place] [address] Care Team Providers Care Senior Linux Engineer Name Role Phone Leo Manzano MD Unavailable [phone] Carl Strickland MD Primary Care Provider Reason for Visit * Auth/Cert (Routine) Specialty Diagnoses / Procedures Referred By Contac t Referred To Contact Diagnoses Ureteral stone Left flank pain Procedures N/A Referral ID Status Reason Start Date Expiration Date Visits Re quested Visits Authorized [id number] 1 1 Encounter Details Date Type Department Care Team (Latest Contact Info) Description 07/04/2023 7:00 PM CASHIER GREETER - 07/04/2023 11:59 PM CASHIER GREETER Hospital Encounter [facility] [address] [place] [id number] Discharge Disposition: Discharge to home or self care Social History Tobacco Use Types Packs/Day Years Used Date Smoking Tobacco: Never Smokeless Tobacco: Never Alcohol Use Standard Drinks/Week Comments Not Currently 0 (1 standard drink = 0.6 oz pur e alcohol) [facility] Utilities Answer Date Recorded In [...] often do you attend chur ch or mormon services? More than 4 times per year [...] with a partner? Living with partner 06/15/2023 AUDIT-C Answer Date Recorded Q1: How often [...] place to sleep or slept in a jail (including now)? No 06/15/2023 Personal Safety Answer Date Recorded Getting School Help Needed Denies 05/09 Sex and Gender Information Value Date Recorded Sex Assigned at Not on file Legal Sex Male 3:42 AM CASHIER GREETER Gender Identity Not on file Sexual Orientation Straight 06/12/2023 11 :43 PM CASHIER GREETER documented as of this encounter Medications at [...] day To prevent constipation 40 tablet 3 methocarbamoL (ROBAXIN) 750 mg tablet Take 1 tablet (750 mg total) by mouth 3 (three) times a day for 10 days 30 tablet 4 07/18/19 24 acetaminophen 500 mg capsule Take 2 capsules (1,000 mg total) by mouth every 6 (six) hours as needed for pain 30 tablet 3 07/20/19 24 albuterol HFA (PROVENTIL HFA,VENTOLIN HFA,PROAIR HFA) 90 mcg/actuation inhaler Inhale 2 puffs every 4 (four) hours as needed for wheezing 1 each 3 07/20/19 24 carvediloL (COREG) 12.5 mg tablet Take 2 tablets (25 mg total) by mouth 2 (two) times a day with meals 120 tablet 11 4 09/09/19 24 gabapentin (NEURONTIN) 300 mg capsule Take 1 capsule (300 mg total) by mouth 3 (three) times a day 90 capsule 1 4 09/09/19 24 hyoscyamine (LEVSIN) 0.125 mg SL tabletIndications:U rinary Incontinence Take 1 tablet (125 mcg total) by mouth every 6 (six) hours for 14 days 56 tablet 4 07/20/19 24 lidocaine (ASPERCREME) 4 % adhesive patch,medicated Place 3 patches on the skin daily 4 07/20/19 24 methocarbamoL (ROBAXIN) 500 mg tablet Take 1.5 tablets (750 mg total) by mouth 3 (three) times a day as needed for muscle spasms for up to 90 doses 30 tablet 2 4 07/08/19 24 ondansetron ODT (ZOFRAN-ODT) 4 mg disintegrating tablet Take 1 tablet (4 mg total) by mouth every 8 (eight) hours as needed for nausea or vomiting 20 tablet 4 07/20/19 24 oxyBUTYnin XL (DITROPAN-XL) 10 mg 24 hr tablet Take 1 tablet (10 mg total) by mouth daily for 14 days 14 tablet 4 08/23/19 24 oxyCODONE (ROXICODONE) 5 mg immediate release tabletIndications:P ain Take 1 tablet (5 mg total) by mouth every 4 (four) hours as needed for pain 30 tablet 4 08/24/19 24 phenazopyridine (PYRIDIUM) 100 mg tablet Take 2 tablets (200 mg total) by mouth 3 (three) times a day with meals 30 tablet 4 07/20/19 24 QUEtiapine (SEROquel) 50 mg tablet Take 1 tablet (50 mg total) by mouth nightly 30 tablet 3 08/24/19 24 tamsulosin (FLOMAX) 0.4 mg extended release capsule Take 1 capsule (0.4 mg total) by mouth daily with dinner 30 capsule 1 4 07/08/19 24 tamsulosin (FLOMAX) 0.4 mg extended release capsule Take 1 capsule (0.4 mg total) by mouth daily with dinner for 15 days 15 capsule 4 08/23/19 documented as of this encounter Discharge Disposition Disposition Code Departure Means Destination Discharge to home or self care documented in this encounter Plan of Treatment Not on file documented as of this encounter Procedures Procedure Name Priority Date/Time Associated Diagnosis Comments FL FLUOROSCOPY < 1 HOUR IP Routine 07/04/2023 8:16 PM CASHIER GREETER Ureteral stone documented in this encounter Results * FL Fluoroscopy < 1 Hour (07/04/2023 8:16 PM CASHIER GREETER) Narrative [facility] - 07/04/2023 8:17 PM CASHIER GREETER The images from this study are not interpreted by Radiology. ??Please refer to the physician's procedure / OR operative note. Nagi Landa MD IMG FLUOROSCOPY PROCED URES Final Result Performing Organization Address City/State/[facility] Co de Phone Number [facility] documented in this encounter Visit Diagnoses Not on filedocumented in this encounter Care Teams Senior Linux Engineer Relationship Specialty Start Date End Date Carl Strickland MD [address] [place] [address] [place] [address] PCP - General Internal Medicine 06/06/23 Leo Manzano MD [id number] [place] [address] Surgeon Vascular Surgery 05/16/23 documented as of this encounter
--- OUTSIDE RECORDS SUMMARY | 2024-05-30 05:37 | XMS_ITS | Encounter Summary ---
Author Organization [facility] Address [address] [place] [address] Phone Care Team Providers Care Metal Sprayer Machined Parts Name Role Phone Leo Manzano MD Unavailable [phone] Carl Strickland MD Primary Care Provider Encounter Details Date Type Department Care Team (Late st Contact Info) Description 07/06/2023 Telephone [facility] Urology [address] [place] [address] Kathy Boudreaux RMA Social History Tobacco Use Types Packs/Day Years Used Date Smoking Tobacco: Never Smokeless Tobacco: Never Alcohol Use Standard Drinks/Week Comments Not Currently 0 (1 standard drink = 0.6 oz pur e alcohol) [facility] Utilities Answer Date Recorded In the past 12 months has [email or web address] electric, gas, oil, or water company threatened [...] often do you attend chur ch or nondenominational services? More than 4 times per year 07/06/2023 Do you belong to any clubs o r organizations such as yazidism groups, unions, fraternal or athletic groups, or [...] or slept in a chcf (including now)? No 07/06/2023 Personal Safety Answer Date Recorded Getting School Help Needed Denies 05/09 Sex and Gender Information Value Date Recorded Sex Assigned at Not on file Legal Sex Male 3:42 AM ARMOR OFFICER Gender Identity Not on file Sexual Orientation Straight 06/12/2023 11 :43 PM ARMOR OFFICER documented as of this encounter Miscellaneous Notes * Telephone Encounter - Kathy Boudreaux RMA - 07/06/2023 11:38 AM CST Appointments scheduled and reminder letters mailed R OFFICER * Telephone Encounter - Kathy Boudreaux RMA - 07/06/2023 11:38 AM CST ----- Message from Marcus Gamboa MD sent at 07/04/2023 8:58 PM ARMOR OFFICER ----- Regarding: stone I did a ureteroscopy for kidney stones on this patient today. Can you please have him come to the office in 1-2 weeks for cysto with stent removal (OK for me or COLLECTION SYSTEMS ADMINISTRATOR/PA), get 2x litholinks, and follow up 3 months with renal ultrasound? R OFFICER documented in this encounter Plan of Treatment Not on file documented as of this encounter Visit Diagnoses Not on filedocumented in this encounter Care Teams Metal Sprayer Machined Parts Relationship Specialty Start Date End Date Carl Strickland MD [address] [facility] [address] [place] [address] PCP - General Internal Medicine 06/06/23 Leo Manzano MD [address] [facility] [id number] [place] [address] Surgeon Vascular Surgery 05/16/23 documented as of this encounter
--- OUTSIDE RECORDS SUMMARY | 2024-05-30 05:37 | XMS_ITS | Encounter Summary ---
Author Organization [facility] Healthcare Address [address] [place] [address] Care Team Providers Care Slab Polisher Name Role Phone Leo Manzano MD Unavailable [phone] Carl Strickland MD Primary Care Provider Reason for Visit * Reason Comments Abdominal Pain * Auth/Cert (Routine) Specialty Diagnoses / Procedures Referred By Contac t Referred To Contact Diagnoses Ureteral stone Left flank pain Procedures N/A Referral ID Status Reason Start Date Expiration Date Visits Re quested Visits Authorized [id number] 1 1 Encounter Details Date Type Department Care Team (Late st Contact Info) Description 07/04/2023 7:30 PM INVESTIGATION OFFICER - 07/04/2023 9:10 PM INVESTIGATION OFFICER Surgery [facility] Operating Room [address] [place] [address] Marcus Gamboa MD [address] [place], [place] [address] CYSTOSCOPY Surgery Details Date/Time Status Location OR Service Patient Class Case Cl ass Case Type Trauma Case? 07/04/2023 7:30 PM Posted [facility] OR POD 1 325 Urology Emergency Urgent - 3 hours Panel 1 Procedure LRB Anes Op Region Wound Class Comments CYSTOSCOPY N/A General Urethra Class II - Meng an Contaminated URETEROSCOPY Left Monitor Anesthes ia Care Perineum Class II - Clean Contaminated PLACEMENT STENT - URETERAL Left Choice Ureter Class II - Clean Contaminated EXTRACTION STONE Left General Urethra Class II - Clean Contaminated Surgeon Surgeon Role Service Panel Marcus Gamboa MD Primary Urology 1 Terrell Luna MD Resident - Assisting Ur ology 1 Case Notes [phone] documented in this encounter Social History Tobacco [...] week 06/15/2023 How often do you attend [facility] or gnosticism services? More than 4 times per year 06/15/2023 Do you belong to any clubs o r organizations such as hindu groups, unions, fraternal or athletic groups, or [...] slept in a [facility] (including now)? No 06/15/2023 Personal Safety Answer Date Recorded Getting School Help Needed Denies 05/09 Sex and Gender Information Value Date Recorded Sex Assigned at Not on file Legal Sex Male 3:42 AM INVESTIGATION OFFICER Gender Identity Not on file Sexual Orientation Straight 06/12/2023 11 :43 PM INVESTIGATION OFFICER documented as of this encounter Last Filed Vital Signs Vital Sign Reading Time Taken Comments Blood Pressure 99/70 07/04/2023 9:10 PM INVESTIGATION OFFICER Pulse 78 07/04/2023 9:10 PM INVESTIGATION OFFICER Temperature 37 ??C (98.6 ??F) 07/04/2023 9:10 PM INVESTIGATION OFFICER Respiratory Rate 12 07/04/2023 9:10 PM INVESTIGATION OFFICER Oxygen Saturation 94% 07/04/2023 9:10 PM INVESTIGATION OFFICER Inhaled Oxygen Concentration - - Weight 97.5 kg (215 lb) 07/04/2023 11:41 AM INVESTIGATION OFFICER Height 175.3 cm (5' 9 ) 07/04/2023 11:41 AM INVESTIGATION OFFICER Body Mass Index 31.75 07/04/2023 11:41 AM INVESTIGATION OFFICER documented in this encounter Discharge Summaries * Gisele Courtney, [employer]VAGE PROCESSOR - 07/08/2023 1:02 PM CST Inpatient Discharge Summary BRIEF OVERVIEW Admitting Provider: Marcus Gamboa MD Discharge Provider: Marcus Gamboa MD Primary Care Physician at Discharge: Carl Strickland MD [phone] Admission Date: 07/04/2023 Discharge Date: 07/08/2023 Admission Location: [facility] Problems/Diagnoses: Principal Problem: Ureteral stone Active Problems: Left flank pain Resolved Problems: No resolved hospital problems. DETAILS OF HOSPITAL STAY Presenting Problem/History of Present Illness: Eriberto Chau is a 33 y.o. 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 CT scan with 3mm obstructing stone L proximal ureter with mild hydronephrosis as well as other bilateral non obstructing stones with largest 4mm in upper pole R kidney. Also with slight increase in size of aneurysm. He also had an ANGI with Cr 1.33, WBC 10.9 but UA negative for infection. Afebrile but hypertensive. Vascual surgery consulted in the ED. They reviewed the CTA obtained in the ED which did demonstrateslight interval increase in size of aneurysm with suggestion of filling of the false lumen. After discussion with team, they did not believe this change if significant is contributing to current clinical symptoms. No new recommendations made. Hospital Course: Eriberto Chau underwent a left URS with stone extractions left ureteral stent placement on 07/04/2023 by Marcus Gamboa*, was admitted to the urology floor after stabilization in the PACU. IV fluids for hydration, IV antibiotics given, vital signs closely monitored. Pain controlled with multimodal agents. Voiding medium blood tinged urine . Allowed a regular diet. POD#1 Pt pain uncontrolled throughout the night, on rounds this AM pt endorsed nausea with emesis - pain regimen adjusted, KUB done showing Aortic stent graft projects over the midline abdomen and thorax. Double-J ureteral stent projects over the left hemiabdomen. Mildly dilated loops of small bowel andcolon compatible with ileus.. Later in the day pt developed 103 fever, urine and blood cultures sent to lab and CXR done showing Thoracic aortic and left subclavian vascular stent is seen. No pulmonary consolidation, pleural effusion or pneumothorax. Cardiac and mediastinal contours are unchanged. Calcified granuloma in the left lung base. IV antibiotics started. POD#2 On rounds in the AM pt c/o severe left flank pain which radiates around to thefront over bladder Pt crying and screaming in pain and writhing in the bed. 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 2. Interval placement of a left nephroureteral stent with unchanged mild hydronephrosis. Interval passing of a ureteral stone and left mid zone renal stone. Vascular notified and reviewed CT as well. Pain regimen adjusted again with better results. POD#3 VSS, pain better controlled but still c/o spasms with urination, added scheduled Levsin to oxybutynin ER. ANGI resolved with Cr 0.8, Added toradol IV, denies nausea and tolerating regular diet POD#4 Pain well controlled. Tolerating a regular diet well. Ambulating at baseline. Pt requesting discharge today, states he feels like he is ready to go home now. Vascular surgery agrees pt is stable for discharge Per vascular note: Will plan for outpatient follow up in [address] imaging, information provided in discharge instructions and discussed with patient. The patient was deemed to be medically stable for discharge from the hospital. home. Urine culture sent during hospitalization, results are negative. The patient will follow up in the [facility] clinic on 07/14/2023 as scheduled. Strict return precautions were provided and good understanding was confirmed. Active Issues Requiring Follow-up: Left ureteral stent removal Test Results Pending at Discharge: Pending Labs Order Current Status Creatine kinase (CK), total In process Blood culture Blood Preliminary result Blood culture Blood Preliminary result Operative Procedures Performed: Procedure(s): CYSTOSCOPY URETEROSCOPY PLACEMENT STENT - URETERAL EXTRACTION STONE Other Procedures: none Pertinent Test Results: none Discharge Details Physical Exam at Discharge: Discharge Condition: good Pulse: 74 Resp: 18 BP: 135/88 Temp: 36.8 ??C (98.2 ??F) Weight: 97.5 kg (215 lb) Pertinent Exam Findings at Discharge: Physical exam: General: Lying comfortably in bed. No acute distress. A&O x4. HEENT: pupils equal, Sclera anicteric, EOMI. Moist mucous membranes. Resp: Pulmonary/Chest: Effort normal. No accessory muscle usage. No respiratory distress. CV: warm & well-perfused Abdomen: Soft, non-tender, non-distended. There is no tenderness. There is no CVA tenderness : voiding tessa urine Extremities: Moving all extremities, no gross deformities Skin: Warm and dry. Neuro: Alert & oriented, speech fluent and appropriate, Discharge Disposition: Discharge to home or self careHome to self care Code Status at Discharge: full code Discharge Instructions: See AVS Discharge Medications: Current Medications TAKE these medications acetaminophen 500 mg capsule Take 2 capsules (1,000 mg total) by mouth every 6 (six) hours as needed for pain albuterol HFA 90 mcg/actuation inhaler Inhale 2 puffs every 4 (four) hours as needed for wheezing Commonly known as: PROVENTIL HFA,VENTOLIN HFA,PROAIR HFA amLODIPine 10 mg tablet Take 1 tablet (10 mg total) by mouth daily Commonly known as: NORVASC aspirin 81 mg chewable tablet Take 1 tablet (81 mg total) by mouth daily carvediloL 12.5 mg tablet Take 2 tablets (25 mg total) by mouth 2 (two) times a day with meals Commonly known as: COREG gabapentin 300 mg capsule Take 1 capsule (300 mg total) by mouth 3 (three) times a day Commonly known as: NEURONTIN hydrALAZINE 50 mg tablet Take 1 tablet (50 mg total) by mouth 3 (three) times a day Commonly known as: APRESOLINE hyoscyamine 0.125 mg SL tablet Take 1 tablet (125 mcg total) by mouth every 6 (six) hours for 14 days For: involuntary leakage of urine Commonly known as: LEVSIN lidocaine 4 % adhesive patch,medicated Place 3 patches on the skin daily Commonly known as: ASPERCREME methocarbamoL 750 mg tablet Take 1 tablet (750 mg total) by mouth 3 (three) times a day for 10 days Commonly known as: ROBAXIN * ondansetron ODT 4 mg disintegrating tablet Take 1 tablet (4 mg total) by mouth every 8 (eight) hours as needed for nausea or vomiting Commonly known as: ZOFRAN-ODT * ondansetron ODT 4 mg disintegrating tablet Take 1 tablet (4 mg total) by mouth every 8 (eight) hours as needed for nausea or vomiting Commonly known as: ZOFRAN-ODT oxyBUTYnin XL 10 mg 24 hr tablet Take 1 tablet (10 mg total) by mouth daily for 14 days Commonly known as: DITROPAN-XL Start taking on: July 09, 2023 oxyCODONE 5 mg immediate release tablet Take 1 tablet (5 mg total) by mouth every 4 (four) hours as needed for pain For: pain Commonly known as: ROXICODONE phenazopyridine 100 mg tablet Take 2 tablets (200 mg total) by mouth 3 (three) times a day with meals Commonly known as: PYRIDIUM QUEtiapine 50 mg tablet Take 1 tablet (50 mg total) by mouth nightly Commonly known as: SEROquel senna-docusate 8.6-50 mg Take 2 tablets by mouth 2 (two) times a day To prevent constipation Commonly known as: PERICOLACE tamsulosin 0.4 mg extended release capsule Take 1 capsule (0.4 mg total) by mouth daily with dinner for 15 days Commonly known as: FLOMAX * This list has 2 medication(s) that are the same as other medications prescribed for you. Read the directions carefully, and ask your doctor or other care provider to review them with you. Outpatient Follow-Up: Future Appointments Date Time Provider Department Center 07/14/2023 10:30 AM GARCIA [facility] URO CAM 11C [facility] 07/20/2023 3:15 PM Joaquín Abarca MD CAR CAM 8B Cardiology 08/03/2023 2:00 PM [facility] [id number] [facility] CT [id number] 08/03/2023 2:45 PM Leo Manzano MD [facility] [id number] [facility] 10/07/2023 9:00 AM [facility] [id number] [facility] US [facility] Main IMG 10/07/2023 10:00 AM Marcus Gamboa MD URO CAM 11C [facility] Contact Information for Follow-ups [facility] Surgery Specialty: Vascular Surgery [address] [place] [address] 8[address] [facility] [address] Next Steps: Follow up Instructions: Surveillance after TEVAR. The office will call to arrange follow up with repeat CTA in 3 mo. Please call with any questions/concerns Questions: Instructions for follow-up (appointment date and time): Surveillance after TEVAR. The office will call to arrange follow up with repeat CTA in 3 mo. Please call with any questions/concerns Cosigned by Marcus Gamboa MD at 07/14/2023 5:32 PM INVESTIGATION OFFICER STIGATION OFFICER STIGATION OFFICER documented in this encounter Discharge Instructions * Discharge Instructions* Gisele Courtney NP - 07/08/2023 11:14 AM INVESTIGATION OFFICER Images from the original note were not included. DISCHARGE INSTRUCTIONS FOR URETERAL STENT PLACEMENT General Postsurgical Instructions: You may feel mildly dizzy, weak, and drowsy for as long as 24 hours after receiving anesthesia. This can be expected. Have a responsible person with you for the first 24 hours after any outpatient procedure. If you've had manipulation of your urinary tract (kidney, ureter, bladder, prostate, or urethra), some blood in the urine is expected and should improve over the next few days. DO NOT (for the first 24 hours after surgery or while on narcotic pain medicines): DO NOT drive a car, ride a bicycle, or take public transportation. DO NOT participate in physical activities, operate machinery, or make legal decisions. DO NOT drink alcohol or take tranquilizers. DO NOT sign important papers or make important decisions. Activity: DO NOT lift more than 10 pounds (4.5 kilograms) or perform activities like pushing and pulling for 4 weeks. DO NOT engage in activities that may risk injury to your surgical site. Remember heavy strenuous lifting may cause some blood in your urine, this should stop within 24 hours. Call if you see clots in your urine or are unable to urinate DO NOT drive or operate machinery if you are taking narcotic pain medicine. You may take showers or baths. Wound Care: Apply ice packs on incision to relieve discomfort and pain as needed. DO NOT change bandages/dressings for 1 day. Wash hands well before changing your bandage. DO NOT take bath, swimming or submerge your surgical site under water for 2 weeks. May shower 1 day after surgery. Remove your bandages during or just before shower. Cleanse your incision thoroughly but gently with mild soap and water. Pat dry with a clean, dry cloth. Keep your incision clean and dry. No additional bandages are needed on your incision after 3 days unless you are having drainage or for comfort. You have quick dry glue applied as dressing, it will flake-off usually in 7-10 days. DO NOT smoke. It impairs wound healing and is overall bad for your health. You had a ureteral stent placed today during your procedure. It is NOT permanent. It must be removed or exchanged within 3 months. Medications: You may take [id number] stool softener to prevent constipation. Take all medications as directed. Please see discharge medication reconciliation form for specific instructions regarding blood-thinning medications [e.g., aspirin, warfarin (Coumadin), clopidogrel (Plavix)] if applicable. Sometimes ureteral stents may cause your bladder to spasm, this may feel painful, or like a constant urge to urinate or you may leak urine. You will be sent home with a medications to help prevent bladder spasms in case any of these symptoms develop. Diet: Resume your diet prior to surgery. Seek immediate medical care or contact your caregiver if: You experience a severe headache, persistent dizziness, light-headedness, or visual disturbances. Your surgical site pain is unrelieved by medications. Your incision opens, separates, drains pus or foul smelling discharge, or excessively bleeds. There is redness, swelling, worsening pain, or signs of infection around your surgical site. You have a fever of 101?? F (38.5?? C) or above. You experience persistent numbness, tingling, weakness. You experience a rash, hives, or other allergic reaction. You experience difficulty breathing. You develop a cough with sputum production. You experience chest pain. You experience persistent nausea or vomiting. You are unnable to tolerate food or drink. You experience severe constipation that is not relieved by adjusting diet or increasing fluid intake. In an emergency, call 911 or go to an Emergency Department at a nearby hospital. It is important to bring a complete, current list of your medications to any medical appointments or hospitalizations. Make sure you understand these instructions and that you will get help right away if you are not doing well or your condition worsens. Please follow up in the [facility] clinic for stent removal on 07/14/2023 as scheduled. Please call [phone] with any questions or concerns. STIGATION OFFICER STIGATION OFFICER STIGATION OFFICER documented in this encounter Medications at Time [...] on the skin daily 4 07/20/19 24 ondansetron ODT (ZOFRAN-ODT) 4 mg disintegrating [...] Date oxyCODONE (ROXICODONE) 5 mg immediate release tabletIndications:Pa in Take 1 tablet (5 mg total) by mouth every 4 (four) hours as needed for pain 30 tablet 07/08/2023 4 ondansetron ODT (ZOFRAN-ODT) 4 mg disintegrating tablet Take 1 tablet (4 mg total) by mouth every 8 (eight) hours as needed for nausea or vomiting 20 tablet 07/08/2023 4 tamsulosin (FLOMAX) 0.4 mg extended release capsule Take 1 capsule (0.4 mg total) by mouth daily with dinner for 15 days 15 capsule 07/08/2023 4 methocarbamoL (ROBAXIN) 750 mg tablet Take 1 tablet (750 mg total) by mouth 3 (three) times a day for 10 days 30 tablet 07/08/2023 4 phenazopyridine (PYRIDIUM) 100 mg tablet Take 2 tablets (200 mg total) by mouth 3 (three) times a day with meals 30 tablet 07/08/2023 4 oxyBUTYnin XL (DITROPAN-XL) 10 mg 24 hr tablet Take 1 tablet (10 mg total) by mouth daily for 14 days 14 tablet 07/09/2023 4 hyoscyamine (LEVSIN) 0.125 mg SL tabletIndications:Ur inary Incontinence Take 1 tablet (125 mcg total) by mouth every 6 (six) hours for 14 days 56 tablet 07/08/2023 4 documented in this encounter Discharge Disposition Disposition Code Departure Means Destination Comment s Discharge to home or self care documented in this encounter Progress Notes * Kristy Headley MD - 07/08/2023 11:49 AM CST Vascular Surgery Daily Progress Patient Name/MRN: Eriberto Chau [id number] Treatment Team: Vascular Surgery- Attending: Marcus Gamboa* Today's Date: 07/08/2023 Room/Bed: [id number] Admit Date: 07/04/2023 Code Status: Full Code Subjective Chief complaint: left ureteral stone Hospital course S/p ureteral stone extraction and ureteral stent /5 with urology Events Over Last 24 Hours: - remains afebrile, HDS - WBC 12.6 (15.7), hgb 8 (7.9) - pain control improving with multimodal regimen - planning discharge today Allergies Allergen Reactions Lisinopril Angioedema Amoxicillin Hives Current Facility-Administered Medications Medication Dose Route Frequency Provider Last Rate Last Admin acetaminophen (TYLENOL) tablet 1,000 mg 1,000 mg oral Q6H [facility] Kristine Viera MD 1,000 mg at 07/08/23 0538 albuterol HFA (PROVENTIL HFA,VENTOLIN HFA,PROAIR HFA) 90 mcg/actuation inhaler 2 puff 2 puff inhalation Q4H PRN (RT) Terrell Luna MD amLODIPine (NORVASC) tablet 10 mg 10 mg oral Daily Terrell Luna MD 10 mg at 820 aspirin chewable tablet 81 mg 81 mg oral Daily Terrell Luna MD 81 mg at 07/08/23 0820 calcium carbonate (TUMS) chewable tablet 500 mg 200 mg of elemental calcium oral TID PRN Kristine Viera MD Carrier Fluids for Secondary Infusion - 0.9% Sodium Chloride 30 mL intravenous PRN Terrell Luna MD carvediloL (COREG) tablet 25 mg 25 mg oral BID with meals (bkfst, dinner) Terrell Luna MD 25 mg at 07/08/23 0819 cefepime (MAXIPIME) 1,000 mg/10 mL in sterile water (premix) 1,000 mg 1,000 mg intravenous Q12H Gisele Mckeon NP Stopped at 07/08/23 0015 enoxaparin (LOVENOX) syringe 40 mg 40 mg subcutaneous Daily-2100 Gisele Courtney NP 40 mg at 07/07/23 2120 gabapentin (NEURONTIN) capsule 300 mg 300 mg oral TID Terrell Luna MD 300 mg at 07/08/23 0819 hydrALAZINE (APRESOLINE) tablet 50 mg 50 mg oral TID Terrell Luna MD 50 mg at 07/08/23 0837 hyoscyamine (LEVSIN) sublingual tablet 125 mcg 125 mcg sublingual Q6H Gisele Courtney NP ketorolac (TORADOL) 15 mg/mL injection 15 mg 15 mg intravenous Q6H [facility] Gisele Courtney, [employer] SAL[employer]AGE PROCESSOR 15 mg at07/08/23 0539 methocarbamoL (ROBAXIN) tablet 750 mg 750 mg oral TID Gisele Courtney, [employer] SALVAGE PROCESSOR 750 mg at 07/08/23 0820 ondansetron (ZOFRAN) injection 4 mg 4 mg intravenous Q6H PRN Gisele Courtney, C[employer] SALVAGE PROCESSOR 4 mg at 07/07/23 1018 oxyBUTYnin XL (DITROPAN-XL) extended release tablet 10 mg 10 mg oral Daily Gisele Courtney, CATH[employer] SALVAGE PROCESSOR 10 mg at 07/08/23 0820 oxyCODONE (ROXICODONE) tablet 5 mg 5 mg oral Q4H PRN America Rowe MD 5 mg at 07/08/23 0959 phenazopyridine (PYRIDIUM) tablet 200 mg 200 mg oral TID with meals Gisele Courtney, [employer] SALVAGE PROCESSOR 200 mg at 07/08/23 0820 prochlorperazine (COMPAZINE) injection 5 mg 5 mg intravenous Q6H PRN Gisele Courtney, C[employer]DE [employer] SALVAGE PROCESSOR 5 mg at 07/07/23 0634 ramelteon (ROZEREM) tablet 8 mg 8 mg oral Nightly PRN Kristine Viera MD 8 mg at 07/07/23 2124 senna-docusate (PERICOLACE) 8.6-50 mg per tablet 2 tablet 2 tablet oral BID Terrell Luna MD 2 tablet at 07/08/23 0819 simethicone (MYLICON) chewable tablet 80 mg 80 mg oral BID PRN Kristine Viera MD 80 mg at 07/06/23 0837 sodium chloride 0.9% flush 0.5-20 mL 0.5-20 mL intra-catheter Q8H [facility] Terrell Hooks MD 10 mL at 07/08/23 0539 sodium chloride 0.9% flush 0.5-20 mL 0.5-20 mL intra-catheter PRN Terrell Luna MD 10mL at 07/07/23 0328 tamsulosin (FLOMAX) extended release capsule 0.4 mg 0.4 mg oral Daily with dinner Terrell Luna MD 0.4 mg at 07/07/23 1712 vancomycin 1500 mg/515 mL in sodium chloride 0.9% (premix) 1,500 mg 15 mg/kg intravenous Q12H Gisele Courtney NP Stopped at 07/08/23 0341 Objective Vitals: 24hr Min/Max: Temp Min: 36.7 ??C (98.1 ??F) Max: 37 ??C (98.6 ??F) Pulse Min: 74 Max: 90 BP Min: 111/63 Max: 146/97 Resp Min: 16 Max: 18 SpO2 Min: 93 % Max: 99 % Most Recent : Vitals: 07/08/23 1140 BP: 135/88 Pulse: 74 Resp: 18 Temp: 36.8 ??C (98.2 ??F) SpO2: 96% Physical Exam: Constitutional: alert, in no acute distress Neuro: alert, following commands. Sensation grossly intact. Moving all extremities. HENT: airway midline and patent, no secretions Eyes: EOMI no scleral icterus CV: tachycardic rate and rhythm Pulmonary: Nonlabored breathing. Symmetric chest expansion. No accessory muscle use. Abdomen: Soft, nontender, nondistended Extremities: no edema, symmetric, well-developed Skin: warm/dry/intact Pulses: palpable DP/PT bilaterally Diet: Dietary Orders (From admission, onward) Start Ordered 07/06/23 1126 Adult Diet Regular Diet effective now Question: ([facility]) Diet type Answer: Regular 07/06/23 1125 07/05/23 1453 Oral Nutrition Supplements ([facility]) Select Supplement: Thrive - Any Flavor; Quantity (# of cans): 1 can All Meals Question Answer Comment ([facility]) Select Supplement: Thrive - Any Flavor Quantity (# of cans): 1 can 07/05/23 1452 Is&Os: I/O last 2 completed shifts: In: 2444 [P.O.:920; I.V.:999; IV Piggyback:525] Out: 2800 [Urine:2800] I/O this shift: In: 950 [P.O.:950] Out: 950 [Urine:950] Labs/Imaging: Recent Labs Lab Units 02/07220307/06/2352507/05/232113 WBC K/cumm 12.6* 15.7* 19.6* HEMOGLOBIN g/dL 8.0* 7.9* 7.8* HEMATOCRIT % 24.6* 23.9* 24.9* PLATELETS K/cumm 368 327 351 Recent Labs Lab Units 07/06/23220307/05/23211307/04/23 1223 SODIUM mmol/L 140 140 137 POTASSIUM PLASMA mmol/L 3.2* 3.6 4.2 CHLORIDE mmol/L 102 104 101 CO2 mmol/L 27 25 23 BUN SERUM mg/dL 9 17 18 CREATININE mg/dL 0.80 1.43* 1.33* GLUCOSE mg/dL 106 102 98 CALCIUM mg/dL 8.9 8.7 10.1 CTA Chest Abdomen Pelvis Addendum Date: 07/05/2023 Addendum: Aortic measurements to add to findings: Maximum descending thoracic aorta: 52 x 47 mm, previously 49 x 45 mm Dictated by: Nigel Dooley M.D. The radiology attending physician has personally reviewed this study, and had reviewed and/or edited this written report and agrees withit. Electronically signed by: Katy Llamas M.D. Result Date: 07/05/2023 1. 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 Thereis been interval slight increase in size of the aneurysm and caliber of the descending thoracic aorta which may be related to persistent filling of the false lumen. No evidence of stent migration 2. Obstructing stone in the proximal left ureter with resultant mild left hydronephrosis which may account for patient's reported abdominal pain.] Note, given numerous small bilateral renal stones, consider metabolic workup for further evaluation. 3. Slight increase in size of a focal outpouching alongthe left common femoral artery which may represent a small left common femoral artery pseudoaneurysm versus increased opacification within a vascular access device. The Non Critical results were discussed with Jonathan Borja MD by Dr. Devyn Dooley on 07/04/2023 at 2:46 PM Dictated by: Nigel Dooley M.D. The radiology attending physician has personally reviewed this study, and had reviewed and/or edited this written report and agrees with it. Electronically signed by: Katy Llamas M.D. XR Chest 1 Vw Portable Result Date: 07/04/2023 Comparison 06/16/2023 Thoracic endovascular stent grafting redemonstrated No new focal consolidation, pneumothorax, or pleural effusion. Stable cardiomediastinal silhouette. Electronically signed by:Shahrzad Zimmerman M.D. Assessment/Plan Patient Active Problem List Diagnosis Dissection of [...] ovale) Eriberto Chau is a 33 y.o. 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 - no acute vascular surgery intervention - continue ureteral stone management per primary team - Pain management consult - Vascular Surgery will continue to follow. Will plan for outpatient follow up in [address] imaging, information provided in discharge instructions and discussed with patient. The care plan above has been or will be discussed with attending physician. Any changes will be communicated to the primary team. Please contact the Vascular Surgery Consult Service at the number listed below with any questions or concerns regarding the surgical management of this patient. Kristy Headley MD Resident Physician Vascular Surgery Vascular Consult Cosigned by Alonzo Duncan MD at 07/08/2023 1:46 PM INVESTIGATION OFFICER STIGATION OFFICER STIGATION OFFICER * Chung Burleson MD - 07/08/2023 11:00 AM CST Pain Service Progress Note HISTORY: Eriberto Chau is a 33 y.o. year old male referred by the urology team for consultation regarding his L sided uncontrolled abdominal pain. He has a history of TAA c/b dissection s/p FEVAR, HTN, chronic back pain, polysubstance abuse, and ureteral stone s/p cystoscopy, ureteroscopy, ureteral stent placement, and extraction of stone (07/04/2023). The Pain Service is consulted for L sided abdominal pain. The pain is described as occasional, throbbing, stabbing, and cramping. It radiates to the L flank . His pain ranges in severity from 7-10/10. Pain right now is 7/10 on the numeric pain scale. Pain is worse during evening. Pain is better during no specific time of the day. Provocative factors include straining, and urination. Alleviating factors include heat and rest. Episode of pain last night had patient writhing in pain, unable to talk. Patient additionally complains of lumbosacral back pain c/b allodynia, and burning in both described as stepping on sharp stones barefoot. Subjective NAEON. Patient improving on this pain regimen. No symptoms with urination Verbal Pain Score (0-10): Pain Score: 6 Pain Location: Back (Lumbar) Pain Descriptors: Aching Pain Frequency: Constant/continuous Scheduled Medications: Scheduled Medications Medication Dose Route Frequency acetaminophen (TYLENOL) tablet 1,000 mg 1,000 mg oral Q6H [facility] amLODIPine (NORVASC) tablet 10 mg 10 mg oral Daily aspirin chewable tablet 81 mg 81 mg oral Daily carvediloL (COREG) tablet 25 mg 25 mg oral BID with meals (bkfst, dinner) cefepime (MAXIPIME) 1,000 mg/10 mL in sterile water (premix) 1,000 mg 1,000 mg intravenous Q12H [facility] enoxaparin (LOVENOX) syringe 40 mg 40 mg subcutaneous Daily-2100 gabapentin (NEURONTIN) capsule 300 mg 300 mg oral TID hydrALAZINE (APRESOLINE) tablet 50 mg 50 mg oral TID hyoscyamine (LEVSIN) sublingual tablet 125 mcg 125 mcg sublingual Q6H ketorolac (TORADOL) 15 mg/mL injection 15 mg 15 mg intravenous Q6H [facility] methocarbamoL (ROBAXIN) tablet 750 mg 750 mg oral TID oxyBUTYnin XL (DITROPAN-XL) extended release tablet 10 mg 10 mg oral Daily phenazopyridine (PYRIDIUM) tablet 200 mg 200 mg oral TID with meals senna-docusate (PERICOLACE) 8.6-50 mg per tablet 2 tablet 2 tablet oral BID sodium chloride 0.9% flush 0.5-20 mL 0.5-20 mL intra-catheter Q8H [facility] tamsulosin (FLOMAX) extended release capsule 0.4 mg 0.4 mg oral Daily with dinner vancomycin 1500 mg/515 mL in sodium chloride 0.9% (premix) 1,500 mg 15 mg/kg intravenous Q12H Continuous Medications: PRN Medications: PRN Medications Medication Dose Route Frequency Last Admin albuterol HFA (PROVENTIL HFA,VENTOLIN HFA,PROAIR HFA) 90 mcg/actuation inhaler 2 puff 2 puff inhalation Q4H PRN (RT) calcium carbonate (TUMS) chewable tablet 500 mg 200 mg of elemental calcium oral TID PRN Carrier Fluids for Secondary Infusion - 0.9% Sodium Chloride 30 mL intravenous PRN ondansetron (ZOFRAN) injection 4 mg 4 mg intravenous Q6H PRN 4 mg at 07/07/23 1018 oxyCODONE (ROXICODONE) tablet 5 mg 5 mg oral Q4H PRN 5 mg at 07/08/23 1436 prochlorperazine (COMPAZINE) injection 5 mg 5 mg intravenous Q6H PRN 5 mg at 07/07/23 0634 ramelteon (ROZEREM) tablet 8 mg 8 mg oral Nightly PRN 8 mg at 07/07/23 2124 simethicone (MYLICON) chewable tablet 80 mg 80 mg oral BID PRN 80 mg at 07/06/23 0837 sodium chloride 0.9% flush 0.5-20 mL 0.5-20 mL intra-catheter PRN 10 mL at 07/07/23 0328 Current Facility-Administered Medications Medication Dose Route Frequency Provider Last Rate Last Admin acetaminophen (TYLENOL) tablet 1,000 mg 1,000 mg oral Q6H [facility] Kristine Viera MD 1,000 mg at 07/08/23 1212 albuterol HFA (PROVENTIL HFA,VENTOLIN HFA,PROAIR HFA) 90 mcg/actuation inhaler 2 puff 2 puff inhalation Q4H PRN (RT) Terrell Luna MD amLODIPine (NORVASC) tablet 10 mg 10 mg oral Daily Terrell Luna MD 10 mg at 820 aspirin chewable tablet 81 mg 81 mg oral Daily Terrell Luna MD 81 mg at 07/08/23 0820 calcium carbonate (TUMS) chewable tablet 500 mg 200 mg of elemental calcium oral TID PRN Kristine Viera MD Carrier Fluids for Secondary Infusion - 0.9% Sodium Chloride 30 mL intravenous PRN Terrell Luna MD carvediloL (COREG) tablet 25 mg 25 mg oral BID with meals (bkfst, dinner) Terrell Luna MD 25 mg at 07/08/23 0819 cefepime (MAXIPIME) 1,000 mg/10 mL in sterile water (premix) 1,000 mg 1,000 mg intravenous Q12H Gisele Mckeon [employer] 120 mL/hr at 07/08/23 1211 1,000 mg at 07/08/23 1211 enoxaparin (LOVENOX) syringe 40 mg 40 mg subcutaneous Daily-2100 Gisele Courtney, [employer] 40 mg at 07/07/23 2120 gabapentin (NEURONTIN) capsule 300 mg 300 mg oral TID Terrell Luna MD 300 mg at 07/08/23 0819 hydrALAZINE (APRESOLINE) tablet 50 mg 50 mg oral TID Terrell Luna MD 50 mg at 07/08/23 0837 hyoscyamine (LEVSIN) sublingual tablet 125 mcg 125 mcg sublingual Q6H Gisele Courtney [employer] 125 mcg at 07/08/23 1234 ketorolac (TORADOL) 15 mg/mL injection 15 mg 15 mg intravenous Q6H SUSAN Gisele Courtney, [employer] 15 mg at07/08/23 1211 methocarbamoL (ROBAXIN) tablet 750 mg 750 mg oral TID Gisele Courtney, [employer] 750 mg at 07/08/23 0820 ondansetron (ZOFRAN) injection 4 mg 4 mg intravenous Q6H PRN Gisele Courtney, [employer] 4 mg at 07/07/23 1018 oxyBUTYnin XL (DITROPAN-XL) extended release tablet 10 mg 10 mg oral Daily Gisele Courtney [employer] 10 mg at 07/08/23 0820 oxyCODONE (ROXICODONE) tablet 5 mg 5 mg oral Q4H PRN America Rowe MD 5 mg at 07/08/23 1436 phenazopyridine (PYRIDIUM) tablet 200 mg 200 mg oral TID with meals Gisele Courtney [employer] 200 mg at 07/08/23 1212 prochlorperazine (COMPAZINE) injection 5 mg 5 mg intravenous Q6H PRN Gisele Courtney, [employer] 5 mg at 07/07/23 0634 ramelteon (ROZEREM) tablet 8 mg 8 mg oral Nightly PRN Kristine Viera MD 8 mg at 07/07/23 2124 senna-docusate (PERICOLACE) 8.6-50 mg per tablet 2 tablet 2 tablet oral BID Terrell Luna MD 2 tablet at 07/08/23 0819 simethicone (MYLICON) chewable tablet 80 mg 80 mg oral BID PRN Kristine Viera MD 80 mg at 07/06/23 0837 sodium chloride 0.9% flush 0.5-20 mL 0.5-20 mL intra-catheter Q8H S[facility] Terrell Hooks MD 10 mL at 07/08/23 1212 sodium chloride 0.9% flush 0.5-20 mL 0.5-20 mL intra-catheter PRN Terrell Luna MD 10mL at 07/07/23 0328 tamsulosin (FLOMAX) extended release capsule 0.4 mg 0.4 mg oral Daily with dinner Terrell Luna MD 0.4 mg at 07/07/23 1712 vancomycin 1500 mg/515 mL in sodium chloride 0.9% (premix) 1,500 mg 15 mg/kg intravenous Q12H Gisele Courtney [employer] Stopped at 07/08/23 0341 Current Outpatient Medications Medication Sig Dispense Refill acetaminophen 500 mg capsule Take 2 capsules (1,000 mg total) by mouth every 6 (six) hours as needed for pain 30 tablet 0 albuterol HFA (PROVENTIL HFA,VENTOLIN HFA,PROAIR HFA) 90 mcg/actuation inhaler Inhale 2 puffs every4 (four) hours as needed for wheezing 1 each 0 amLODIPine (NORVASC) 10 mg tablet Take 1 tablet (10 mg total) by mouth daily 30 tablet 11 aspirin 81 mg chewable tablet Take 1 tablet (81 mg total) by mouth daily 30 tablet 11 carvediloL (COREG) 12.5 mg tablet Take 2 tablets (25 mg total) by mouth 2 (two) times a day with meals 120 tablet 11 gabapentin (NEURONTIN) 300 mg capsule Take 1 capsule (300 mg total) by mouth 3 (three) times a day 90 capsule 1 hydrALAZINE (APRESOLINE) 50 mg tablet Take 1 tablet (50 mg total) by mouth 3 (three) times a day 90tablet 11 lidocaine (ASPERCREME) 4 % adhesive patch,medicated Place 3 patches on the skin daily ondansetron ODT (ZOFRAN-ODT) 4 mg disintegrating tablet Take 1 tablet (4 mg total) by mouth every 8(eight) hours as needed for nausea or vomiting 10 tablet 0 senna-docusate (PERICOLACE) 8.6-50 mg Take 2 tablets by mouth 2 (two) times a day To prevent constipation 40 tablet 0 hyoscyamine (LEVSIN) 0.125 mg SL tablet Take 1 tablet (125 mcg total) by mouth every 6 (six) hours for 14 days 56 tablet 0 methocarbamoL (ROBAXIN) 750 mg tablet Take 1 tablet (750 mg total) by mouth 3 (three) times a day for 10 days 30 tablet 0 ondansetron ODT (ZOFRAN-ODT) 4 mg disintegrating tablet Take 1 tablet (4 mg total) by mouth every 8(eight) hours as needed for nausea or vomiting 20 tablet 0 [START ON 07/09/2023] oxyBUTYnin XL (DITROPAN-XL) 10 mg 24 hr tablet Take 1 tablet (10 mg total) by mouth daily for 14 days 14 tablet 0 oxyCODONE (ROXICODONE) 5 mg immediate release tablet Take 1 tablet (5 mg total) by mouth every 4 (four) hours as needed for pain 30 tablet 0 phenazopyridine (PYRIDIUM) 100 mg tablet Take 2 tablets (200 mg total) by mouth 3 (three) times a day with meals 30 tablet 0 QUEtiapine (SEROquel) 50 mg tablet Take 1 tablet (50 mg total) by mouth nightly 30 tablet 0 tamsulosin (FLOMAX) 0.4 mg extended release capsule Take 1 capsule (0.4 mg total) by mouth daily with dinner for 15 days 15 capsule 0 Review of Systems All other systems reviewed and are negative. Dietary: Dietary Orders (From admission, onward) Start Ordered 07/06/23 1126 Adult Diet Regular Diet effective now Question: ([facility]) Diet type Answer: Regular 07/06/23 1125 07/05/23 1453 Oral Nutrition Supplements ([facility]) Select Supplement: Thrive - Any Flavor; Quantity (# of cans): 1 can All Meals Question Answer Comment ([facility]) Select Supplement: Thrive - Any Flavor Quantity (# of cans): 1 can 07/05/23 1452 Objective Vitals: 24hr Min/Max: Temp Min: 98.2 ??F (36.8 ??C) Max: 98.6 ??F (37 ??C) Pulse Min: 74 Max: 90 BP Min: 111/63 Max: 146/97 Resp Min: 16 Max: 18 SpO2 Min: 93 % Max: 97 % Most Recent : Vitals: 07/08/23 0010 07/08/23 0400 07/08/23 0820 07/08/23 1140 BP: 111/63 128/66 146/97 135/88 BP Location: Left arm Left arm Patient Position: Lying Lying Pulse: 87 84 90 74 Resp: 16 17 18 Temp: 98.6 ??F (37 ??C) 98.2 ??F (36.8 ??C) 98.2 ??F (36.8 ??C) TempSrc: Oral Oral Oral SpO2: 93% 97% 94% 96% Weight: Height: Physical Exam: CARDIOVASCULAR: No lower extremity edema RESPIRATORY: Normal effort on room air CHEST: Symmetric. GASTROINTESTINAL: Tenderness and guarding of the left abdomen SKIN: normal PSYCHIATRIC: alert,oriented, in NAD with a full range of affect, normal behavior and no psychotic features MUSCULOSKELETAL EXAMINATION: CERVICAL SPINE: Normal extension. Normal flexion. Normal rotation and tilt. Normal cervical spine. No tenderness. UPPER EXTREMITIES: Normal range of motion. Normal muscle strength. Normal muscle bulk and tone. THORACIC SPINE: No thoracic spine tenderness. Ribs normal. LUMBOSACRAL SPINE: Paraspinal muscles normal. Tenderness to palpation of spinal processes. Tenderness at the lumbosacral region. LOWER EXTREMITIES: Normal range of motion. NEUROLOGIC EXAM: Sensory Exam: Allodynia over L3-S2 Dysasthenia over bottoms of feet, no dermatomal or nerve root distribution. Lab/Radiology/Diagnostic Review: No results found for this or any previous visit (from the past 24 hour(s)). XR Chest 1 View Result Date: 07/05/2023 EXAMINATION: 1 view chest radiograph Comparison 07/04/2023 Thoracic aortic and left subclavian vascular stent is again seen. No pulmonary consolidation, pleural effusion or pneumothorax. Cardiac and mediastinal contours are unchanged. Calcified granuloma in the left lung base. Dictated by: Nash Singleton MD The radiology attending physician has personally reviewed this study, and had reviewed and/or edited this written report and agreeswith it. Electronically signed by: James Alvarado M.D. XR Abdomen Ap 1 Vw Result Date: 07/05/2023 EXAMINATION: Abdomen, one view. HISTORY: 33-year-old male with aortic dissection and obstructing left ureteral stone. Abdominal pain. COMPARISON: CT 07/04/2023 A single view of the abdomen is submitted for evaluation. Aortic stent graft projects over the midline abdomen and thorax. Double-J ureteral stent projects over the left hemiabdomen. Mildly dilated loops of small bowel and colon compatible with ileus. Dictated by: Hill Boyd MD The radiology attending physician has personally reviewed this study, and had reviewed and/or edited this written report and agrees with it. Electronically signed by: Otoniel Mccain M.D. CTA Chest Abdomen Pelvis Addendum Date: 07/05/2023 Addendum: Aortic measurements to add to findings: Maximum descending thoracic aorta: 52 x 47 mm, previously 49 x 45 mm Dictated by: Nigel Dooley M.D. The radiology attending physician has personally reviewed this study, and had reviewed and/or edited this written report and agrees withit. Electronically signed by: Katy Llamas M.D. Result Date: 07/05/2023 EXAMINATION: CT ANGIOGRAPHY OF THE CHEST, ABDOMEN AND PELVIS WITH AND WITHOUT CONTRAST HISTORY: 33-year-old male with history of aortic dissection status post thoracic endovascular aortic repair on 05/02/2023 with revision on 06/05/2023. Patient presenting with abdominal pain. TECHNIQUE: CT angiography of the chest, abdomen and pelvis was performed prior to and following the uneventful intravenous administration of 90 ml [id number] using the post-endoluminal stent graft protocol. Vascular 3D images were generated on a dedicated workstation and also reviewed. 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 The proximal attachment site of the endovascular stent graft is just past the origin of the left common carotid artery. Vascular stent graft is noted within the left subclavian artery. The distal attachment site of the stent graft is within the infrarenal abdominal aorta. This is similar in appearance compared to prior examination. The distal most aspect of the dissection extends into the left common iliac artery which is unchanged There continues to be filling of the false lumen which is similar compared to prior examination. The inferior most aspect of this filling may be related to an apparent fenestration within the dissection flap in the left common iliac artery. The maximum caliber of the descending thoracic aorta appears to be increase in size compared to 06/13/2023 The right renal artery appears to arise from the true lumen. The superior mesenteric artery and celiac artery arise from the false lumen. The left renal artery origin is difficult to assess but may arise from the false lumen. The inferior mesenteric artery arises from the true lumen. Redemonstrated focal outpouching along the left common femoral artery is seen at series 5, image 654 which measures 7 mm, previously 4 mm NON-VASCULAR FINDINGS: Chest: Thyroid gland is normal. No suspicious lymphadenopathy in the pelvis. Calcified left hilar lymph nodes are noted. Heart size is normal. There is no pericardial effusion. Calcified granuloma in the left lower lobe. Atelectasis in the bases. There is faint groundglass within the right middle lobe which may represent sequela of inflammatory process is unchanged from 06/13/2023. Pneumothorax or pleural effusion. Abdomen/Pelvis: Small probable hemangioma within segment 8 is unchanged. Bladder is normal. Pancreas is normal. Sequela of old granulomatous disease in the spleen. Multiple bilateral renal stones are noted, largest measuring 4 mm inthe upper pole the right kidney.. There is 3 mm an obstructing stone in the proximal left ureter, best seen at series 5, image 473 with mild upstream hydronephrosis. The bladder is normal. Unchanged hypoattenuating lesion in the upper pole the right kidney favored represent a renal cyst. The large b owel is normal in course and caliber. The appendix is normal. Small bowel is normal in course and caliber. No suspicious of adenopathy in the abdomen or pelvis. No suspicious osseous lesion. 1. 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 Thereis been interval slight increase in size of the aneurysm and caliber of the descending thoracic aorta which may be related to persistent filling of the false lumen. No evidence of stent migration 2. Obstructing stone in the proximal left ureter with resultant mild left hydronephrosis which may account for patient's reported abdominal pain.] Note, given numerous small bilateral renal stones, consider metabolic workup for further evaluation. 3. Slight increase in size of a focal outpouching alongthe left common femoral artery which may represent a small left common femoral artery pseudoaneurysm versus increased opacification within a vascular access device. The Non Critical results were discussed with Jonathan Borja MD by Dr. Devyn Dooley on 07/04/2023 at 2:46 PM Dictated by: Nigel Dooley M.D. The radiology attending physician has personally reviewed this study, and had reviewed and/or edited this written report and agrees with it. Electronically signed by: Katy Llamas M.D. [place] Fluoroscopy < 1 Hour Result Date: 07/04/2023 The images from this study are not interpreted by Radiology. Please refer to the physician's procedure / OR operative note. XR Chest 1 Vw Portable Result Date: 07/04/2023 EXAMINATION: 1 view chest radiograph Comparison 06/16/2023 Thoracic endovascular stent grafting redemonstrated No new focal consolidation, pneumothorax, or pleural effusion. Stable cardiomediastinal silhouette. Electronically signed by:Shahrzad Zimmerman M.D. ECG 12 lead Result Date: 07/04/2023 Rosey Posada MD 07/04/2023 11:55 AM ECG 12 lead Date/Time: 07/04/2023 11:53 AM Performed by: Rosey Posada MD Authorized by: Guille Navarro MD Rate: ECG rate: 76 ECG rate assessment: normal Rhythm: Rhythm: sinus rhythm Ectopy: Ectopy: none QRS: QRS axis: Normal QRS intervals: Normal Conduction: Conduction: normal ST segments: ST segments: Normal T waves: T waves: flattening and inverted Flattening: II Inverted: III, aVF, V6 and V5 Other findings: Other findings: LVH Previous ECG: Previous ECG: Compared to current Date of previous EC07/02/2023 Interpretation: Interpretation: No significant change Recommended Follow-up: Recommended follow up: further workup in the ED Assessment/Plan Eriberto Chau is a 33 y.o. male who presents with Other acute post-procedural pain, Acute Postoperative Abdominal Pain, and Low Back Pain. Plan 1. Intervention: No intervention needed at this current time. No procedure is indicated 2. Medications: a. Opioids: PO: Continue Oxycodone 5mg q 4hr PRN IV: Discontinue Hydromorphone 0.5mg q 4hr PRN IV/GAME ROOM ATTENDANT: none SubQ: none b. Adjuvants: Continue APAP 1000mg Q6 susan Continue Ketorolac 15mg Q6 for 6 doses --> Meloxicam 15mg daily Consider increase gabapentin to 900 mg TID on discharge Consider increased robaxin 1000 mg TID on discharge Continue urologic spasm treatment per primary team. We will sign off, please call with questions. Thank you for allowing us to participate in the care of this patient. Aman Lindo MD Acute Pain Service Department of Anesthesiology [facility] [phone] This pager does not accept voice messages. Please enter your callback number and press #. 07/08/2023 6:32 PM I have seen and evaluated the patient and agree with the above Chung Burleson MD STIGATION OFFICER STIGATION OFFICER STIGATION OFFICER * Dalton Vizcaino MD - 07/07/2023 9:00 PM CST Vascular Surgery Daily Progress Patient Name/MRN: Eriberto Chau [id number] Treatment Team: Vascular Surgery- Attending: Marcus Gamboa* Today's Date: 07/08/2023 Room/Bed: [id number] Admit Date: 07/04/2023 Code Status: Full Code Subjective Chief complaint: left ureteral stone Hospital course S/p ureteral stone extraction and ureteral stent 07/04 with urology Events Over Last 24 Hours: - Febril 07/06/[address] with no significant changes sans removal of ureteral stones - Pain consult: Recommend scheduling robaxin and increasing gabapentin - Ongoing management of ureteral stones per urology - States pain feels much better this AM - NAEON Allergies Allergen Reactions Lisinopril Angioedema Amoxicillin Hives Current Facility-Administered Medications Medication Dose Route Frequency Provider Last Rate Last Admin acetaminophen (TYLENOL) tablet 1,000 mg 1,000 mg oral Q6H SUSAN Kristine Viera MD 1,000 mg at 07/08/23 0010 albuterol HFA (PROVENTIL HFA,VENTOLIN HFA,PROAIR HFA) 90 mcg/actuation inhaler 2 puff 2 puff inhalation Q4H PRN (RT) Terrell Luna MD amLODIPine (NORVASC) tablet 10 mg 10 mg oral Daily Terrell Luna MD 10 mg at 847 aspirin chewable tablet 81 mg 81 mg oral Daily Terrell Luna MD 81 mg at 07/07/23 0846 calcium carbonate (TUMS) chewable tablet 500 mg 200 mg of elemental calcium oral TID PRN Kristine Viera MD Carrier Fluids for Secondary Infusion - 0.9% Sodium Chloride 30 mL intravenous PRN Terrell Luna MD carvediloL (COREG) tablet 25 mg 25 mg oral BID with meals (bkfst, dinner) Terrell Luna MD 25 mg at 07/07/23 1720 cefepime (MAXIPIME) 1,000 mg/10 mL in sterile water (premix) 1,000 mg 1,000 mg intravenous Q12H Gisele Mckeon [employer] 120 mL/hr at 07/08/23 0010 1,000 mg at 07/08/23 0010 enoxaparin (LOVENOX) syringe 40 mg 40 mg subcutaneous Daily-2100 Gisele Courtney [employer] 40 mg at 07/07/232119 gabapentin (NEURONTIN) capsule 300 mg 300 mg oral TID Terrell Luna MD 300 mg at 07/07/232122 hydrALAZINE (APRESOLINE) tablet 50 mg 50 mg oral TID Terrell Luna MD 50 mg at 07/07/232123 HYDROmorphone (DILAUDID) injection 0.5 mg 0.5 mg intravenous Q2H PRN America Rowe MD 0.5 mg at 07/07/232116 hyoscyamine (LEVSIN) injection 0.25 mg 0.25 mg intravenous Q6H Gisele Perez, [employer] 0.25 mg at 07/08/239 ketorolac (TORADOL) 15 mg/mL injection 15 mg 15 mg intravenous Q6H Gisele Perez, [employer]OR 15 mg at07/08/239 Lactated Ringer's (LR) infusion 125 mL/hr intravenous Continuous America Rowe MD 125 mL/hr at 07/07/232117 125 mL/hr at 07/07/232117 methocarbamoL (ROBAXIN) tablet 750 mg 750 mg oral TID Gisele Courtney [employer] 750 mg at 07/07/232119 ondansetron (ZOFRAN) injection 4 mg 4 mg intravenous Q6H PRN Gisele Courtney, [employer] PROC[employer]OR 4 mg at 07/07/23 1018 oxyBUTYnin XL (DITROPAN-XL) extended release tablet 10 mg 10 mg oral Daily Gisele Courtney, [employer] 10 mg at 07/07/23 0847 oxyCODONE (ROXICODONE) tablet 5 mg 5 mg oral Q4H PRN America Rowe MD 5 mg at 07/07/23 1651 phenazopyridine (PYRIDIUM) tablet 200 mg 200 mg oral TID with meals Gisele Courtney NP 200 mg at 07/07/23 171 prochlorperazine (COMPAZINE) injection 5 mg 5 mg intravenous Q6H PRN Gisele Courtney NP 5 mg at 07/07/23 0634 ramelteon (ROZEREM) tablet 8 mg 8 mg oral Nightly PRN Kristine Viera MD 8 mg at 07/07/23 2124 senna-docusate (PERICOLACE) 8.6-50 mg per tablet 2 tablet 2 tablet oral BID Terrell Luna MD 2 tablet at 07/07/23 2120 simethicone (MYLICON) chewable tablet 80 mg 80 mg oral BID PRN Kristine Viear MD 80 mg at 07/06/23 0837 sodium chloride 0.9% flush 0.5-20 mL 0.5-20 mL intra-catheter Q8H SUSAN Terrell Hooks MD 10 mL at 07/07/23 1247 sodium chloride 0.9% flush 0.5-20 mL 0.5-20 mL intra-catheter PRN Terrell Luna MD 10mL at 07/07/23 0328 tamsulosin (FLOMAX) extended release capsule 0.4 mg 0.4 mg oral Daily with dinner Terrell Luna MD 0.4 mg at 07/07/23 1712 vancomycin 1500 mg/515 mL in sodium chloride 0.9% (premix) 1,500 mg 15 mg/kg intravenous Q12H Gisele Courtney NP Stopped at 07/07/23 171 Objective Vitals: 24hr Min/Max: Temp Min: 36.7 ??C (98.1 ??F) Max: 37 ??C (98.6 ??F) Pulse Min: 74 Max: 106 BP Min: 116/81 Max: 144/99 Resp Min: 16 Max: 17 SpO2 Min: 95 % Max: 100 % Most Recent : Vitals: 07/07/232054 BP: 125/84 Pulse: 78 Resp: 17 Temp: 36.8 ??C (98.2 ??F) SpO2: 96% Physical Exam: Constitutional: alert, uncomfortable appearing Neuro: alert, following commands. Sensation grossly intact. Moving all extremities. HENT: airway midline and patent, no secretions Eyes: EOMI no scleral icterus CV: tachycardic rate and rhythm Pulmonary: Nonlabored breathing. Symmetric chest expansion. No accessory muscle use. Abdomen: Soft, left flank pain reproducible with palpation and point tenderness to palpation lumbarspine and left paraspinal area, nondistended Extremities: no edema, symmetric, well-developed Skin: warm/dry/intact Pulses: palpable DP/PT bilaterally Diet: Dietary Orders (From admission, onward) Start Ordered 07/06/23 1126 Adult Diet Regular Diet effective now Question: ([facility]) Diet type Answer: Regular 07/06/23 1125 07/05/23 1453 Oral Nutrition Supplements ([facility]) Select Supplement: Thrive - Any Flavor; Quantity (# of cans): 1 can All Meals Question Answer Comment ([facility]) Select Supplement: Thrive - Any Flavor Quantity (# of cans): 1 can 07/05/23 1452 Is&Os: I/O last 2 completed shifts: In: 2324 [P.O.:800; I.V.:999; IV Piggyback:525] Out: 3575 [Urine:3575] I/O this shift: In: - Out: 225 [Urine:225] Labs/Imaging: Recent Labs Lab Units 07/06/23220307/06/2352507/05/232113 WBC K/cumm 12.6* 15.7* 19.6* HEMOGLOBIN g/dL 8.0* 7.9* 7.8* HEMATOCRIT % 24.6* 23.9* 24.9* PLATELETS K/cumm 368 327 351 Recent Labs Lab Units 07/06/23220307/05/23211307/04/23 1223 SODIUM mmol/L 140 140 137 POTASSIUM PLASMA mmol/L 3.2* 3.6 4.2 CHLORIDE mmol/L 102 104 101 CO2 mmol/L 27 25 23 BUN SERUM mg/dL 9 17 18 CREATININE mg/dL 0.80 1.43* 1.33* GLUCOSE mg/dL 106 102 98 CALCIUM mg/dL 8.9 8.7 10.1 CTA Chest Abdomen Pelvis Addendum Date: 07/05/2023 Addendum: Aortic measurements to add to findings: Maximum descending thoracic aorta: 52 x 47 mm, previously 49 x 45 mm Dictated by: Nigel Dooley M.D. The radiology attending physician has personally reviewed this study, and had reviewed and/or edited this written report and agrees withit. Electronically signed by: Katy Llamas M.D. Result Date: 07/05/2023 1. 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 Thereis been interval slight increase in size of the aneurysm and caliber of the descending thoracic aorta which may be related to persistent filling of the false lumen. No evidence of stent migration 2. Obstructing stone in the proximal left ureter with resultant mild left hydronephrosis which may account for patient's reported abdominal pain.] Note, given numerous small bilateral renal stones, consider metabolic workup for further evaluation. 3. Slight increase in size of a focal outpouching alongthe left common femoral artery which may represent a small left common femoral artery pseudoaneurysm versus increased opacification within a vascular access device. The Non Critical results were discussed with Jonathan Borja MD by Dr. Devyn Dooley on 07/04/2023 at 2:46 PM Dictated by: Nigel Dooley M.D. The radiology attending physician has personally reviewed this study, and had reviewed and/or edited this written report and agrees with it. Electronically signed by: Katy Llamas M.D. XR Chest 1 Vw Portable Result Date: 07/04/2023 Comparison 06/16/2023 Thoracic endovascular stent grafting redemonstrated No new focal consolidation, pneumothorax, or pleural effusion. Stable cardiomediastinal silhouette. Electronically signed by:Shahrzad Zimmerman M.D. Assessment/Plan Patient Active Problem List Diagnosis Dissection of [...] ovale) Eriberto Chau is a 33 y.o. 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 - no acute vascular surgery intervention - continue ureteral stone management per primary team - Pain management consult - Vascular Surgery will continue to follow. Will plan for outpatient follow up in with repeat CTimaging The care plan above has been or will be discussed with attending physician. Any changes will be communicated to the primary team. Please contact the Vascular Surgery Consult Service at the number listed below with any questions or concerns regarding the surgical management of this patient. Dalton Vizcaino MD Resident Physician Vascular Surgery Vascular Consult Cosigned by Nikhil Samuel MD at 07/18/2023 11:03 AM INVESTIGATION OFFICER STIGATION OFFICER STIGATION OFFICER STIGATION OFFICER * Timmy Rosales - 07/07/2023 3:53 PM CST Fr Timmy Rosales [phone] 07/07/23 1500 Time Spent Start Time 1510 Stop Time 1530 Time Calculation (min) 20 min Patient Spiritual Assessment Spirituality Assessed Yes Yarsani Affiliation Mormonism Active in Latter Day Yes Spiritual Needs Communion;Prayer Clinical Encounter Type Visited With Patient and family together Response Type Continuing visit Routine Visit Follow-up Continue Visiting Yes Reason for visit Sacramental;Support Sacramental Encounters Communion Patient wants communion Communion Given Indicator Yes Outcomes and Progress Aligning care with patient's values Achieved Preserve dignity and respect Achieved Demonstrating care and respect Achieved Interventions Interventions Active listening;Offer emotional support;Offer spiritual/gnosticism support;Prayer (Benediction) STIGATION OFFICER * Gisele Courtney, [employer] PROCESSOR - 07/07/2023 11:04 AM CST Images from the original note were not included. Urology Progress Note Subjective Patient is a 33 y.o. 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 ([place]), hypertension who presents today with a chief complaint of left lower abdominal pain, left flank pain. He was found to have L 3mm obstructing proximal ureteral stone. Interval History: VSS, afebrile overnight, + uncontrolled pain causing nausea, but pain level is improving since yesterday Objective Recent Vitals(24hr Range): Vitals: 07/07/23 0645 07/07/23 0840 07/07/23 0846 07/07/23 1026 BP: 144/99 144/99 Pulse: 84 74 74 98 Resp: Temp: 37 ??C (98.6 ??F) TempSrc: SpO2: 99% 95% Weight: Height: I and Os: I/O last 3 completed shifts: In: 1520 [I.V.:1010; IV Piggyback:510] Out: 4621 [Urine:4621] I/O this shift: In: 1049 [P.O.:50; I.V.:999] Out: 1025 [Urine:1025] I/O last 2 completed shifts: In: 1520 [I.V.:1010; IV Piggyback:510] Out: 3650 [Urine:3650] I/O this shift: In: 1049 [P.O.:50; I.V.:999] Out: 1025 [Urine:1025] Physical exam: Physical Exam Constitutional: oriented to person, place, and time and well-developed, well- nourished, and in no distress. Vital signs are normal. Eye: pupils equal. Cardiovascular: Normal rate and regular rhythm. Pulmonary/Chest: Effort normal. No accessory muscle usage. No respiratory distress. Abdominal: Soft. There is left CVA tenderness. + Left lower quadrant pain. . Neurological: alert and oriented to person, place, and time. Gu: voiding light blood tinged urine Lab/Radiology/Diagnostic Review: Chem/LFT Lab History Latest Ref Rng & Units 06/23/2023 07/04/2023 12:23 07/05/2023 21:14 07/06/2023 22:04 Labs-Chem/LFT Sodium 135 - 145 mmol/L 137 137 140 140 Creatinine 0.80 - 1.30 mg/dL 1.05 1.33 1.43 0.80 Bilirubin, total 0.1 - 1.2 mg/dL 0.3 AST 10 - 50 Units/L 13 ALT 7 - 55 Units/L 13 Alk phos 40 - 130 Units/L 105 CrCl- Actual Body Weight (Cockcroft-Gault) 141.7 111 103.2 184.5 Details More values are hidden. Newest values shown. Go to activity for more data. Hematology Lab History Latest Ref Rng & Units 06/23/2023 07/04/2023 12:23 07/05/2023 07/06/2023 Labs - Hematology WBC 3.8 - 9.9 K/cumm 10.3 10.9 19.6 12.6 Total Hb, POC 13.0 - 17.5 g/dL 9.3 9.7 7.8 8.0 Hct 38.9 - 50.3 % 29.3 31.1 24.9 24.6 Plt 150 - 400 K/cumm 389 437 351 368 Neutrophil abs 1.5 - 6.5 K/cumm 8.5 Lymphocytes, abs 0.8 - 3.3 K/cumm 1.2 Details More abnormal values are hidden. Newest values shown. Go to activity for more data. More values are hidden. Newest values shown. Go to activity for more data. Assessment /Plan Principal Problem: Ureteral stone Active Problems: Left flank pain 33 y.o. male s/p left stent placement on 07/04/2026. Plan: This AM on rounds pt having severe left lower quadrant and left flank pain, pt screaming in pain and crying. Dilaudid 0.5 mg IV, valium 2.5 mg IV and Zofran 4 mg IV all given. With good results. Stat CT done: 1. 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 2. Interval placement of a left nephroureteral stent with unchanged mild hydronephrosis. Interval passing of a ureteral stone and left mid zone renal stone. PAIN: Added toradol IV, Continue extended release oxybutynin,scheduled acetaminophen and oxycodone.Continue prn IV dilaudid and IV levsin prn, Pt had not asked for the levsin, encouraged him to request this medication from his nurse GI: Regular diet as tolerated, mIVF 75 ml/hr, + nausea due to uncontrolled pain, zofran prn 1st line, compazine prn 2nd line : voiding, light blood tinged urine ID: Urine culture finalized with no growth, preliminary blood culture resulted as NGTD, continue onvancomycin and cefipime DVT ppx: SCD's and SQ lovenox Vascular: Will continue to follow, appreciate recommendations Gisele Courtney NP 07/07/2023 [facility] Urology Service STIGATION OFFICER * Timmy Rosales - 07/06/2023 3:55 PM CST Fr Timmy Rosales [phone] 07/06/23 1500 Time Spent Start Time 1310 Stop Time 1320 Time Calculation (min) 10 min Patient Spiritual Assessment Spirituality Assessed Yes Yarsani Affiliation Mormonism Active in Latter Day Yes Spiritual Needs Anointing;Communion;Prayer Clinical Encounter Type Visited With Patient and family together Response Type Routine visit Routine Visit Introduction Reason for visit Sacramental;Support Sacramental Encounters Communion Patient wants communion Communion Given Indicator Yes Sacrament of Sick-Anointing Anointed Outcomes and Progress Aligning care with patient's values Achieved Preserve dignity and respect Achieved Demonstrating care and respect Achieved Sense of peace Achieved Interventions Interventions Active listening;Offer emotional support;Offer spiritual/gnosticism support;Prayer (Benediction) STIGATION OFFICER * Gisele Courtney NP - 07/06/2023 11:23 AM CST Images from the original note were not included. Urology Progress Note Subjective Patient is a 33 y.o. 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 ([place]), hypertension who presents today with a chief complaint of left lower abdominal pain, left flank pain. He was found to have L 3mm obstructing proximal ureteral stone. Interval History: VSS, afebrile overnight, + uncontrolled pain causing nausea and vomiting. DID have fever yesterday afternoon to 102.9, blood and urine cultures sent to lab all with preliminary results of no growth to date Objective Recent Vitals(24hr Range): Vitals: 07/06/23 0535 07/06/23 0815 07/06/23 0906 07/06/23 1004 BP: 120/83 143/85 114/62 BP Location: Left arm Patient Position: Lying Pulse: 88 81 78 78 Resp: 16 Temp: 36.9 ??C (98.4 ??F) TempSrc: Oral SpO2: 100% 97% (!) 89% 98% Weight: Height: I and Os: I/O last 3 completed shifts: In: 801 [P.O.:50; I.V.:751] Out: 1851 [Urine:1846; Blood:5] I/O this shift: In: 10 [I.V.:10] Out: 400 [Urine:400] I/O last 2 completed shifts: In: 0 Out: 1696 [Urine:1696] I/O this shift: In: 10 [I.V.:10] Out: 400 [Urine:400] Physical exam: Physical Exam Constitutional: oriented to person, place, and time and well-developed, well- nourished, and in no distress. Vital signs are normal. Eye: pupils equal. Cardiovascular: Normal rate and regular rhythm. Pulmonary/Chest: Effort normal. No accessory muscle usage. No respiratory distress. Abdominal: Soft. There is left CVA tenderness. Left lower quadrant pain. . Neurological: alert and oriented to person, place, and time. Gu: voiding light blood tinged urine Lab/Radiology/Diagnostic Review: Chem/LFT Lab History Latest Ref Rng & Units 06/22/2023 01:09 06/23/2023 07/04/2023 12:23 07/05/2023 21:14 Labs-Chem/LFT Sodium 135 - 145 mmol/L 137 137 137 140 Creatinine 0.80 - 1.30 mg/dL 0.85 1.05 1.33 1.43 Bilirubin, total 0.1 - 1.2 mg/dL 0.3 AST 10 - 50 Units/L 13 ALT 7 - 55 Units/L 13 Alk phos 40 - 130 Units/L 105 CrCl- Actual Body Weight (Cockcroft-Gault) 175.1 141.7 111 103.2 Details More values are hidden. Newest values shown. Go to activity for more data. Hematology Lab History Latest Ref Rng & Units 06/23/2023 07/04/2023 12:23 07/05/2023 07/06/2023 05:26 Labs - Hematology WBC 3.8 - 9.9 K/cumm 10.3 10.9 19.6 15.7 Total Hb, POC 13.0 - 17.5 g/dL 9.3 9.7 7.8 7.9 Hct 38.9 - 50.3 % 29.3 31.1 24.9 23.9 Plt 150 - 400 K/cumm 389 437 351 327 Neutrophil abs 1.5 - 6.5 K/cumm 8.5 Lymphocytes, abs 0.8 - 3.3 K/cumm 1.2 Details More abnormal values are hidden. Newest values shown. Go to activity for more data. More values are hidden. Newest values shown. Go to activity for more data. Assessment /Plan Principal Problem: Ureteral stone Active Problems: Left flank pain 33 y.o. male s/p left stent placement on 07/04/2026. Plan: This AM on rounds pt having severe left lower quadrant and left flank pain, pt screaming in pain and crying. Dilaudid 0.5 mg IV, valium 2.5 mg IV and Zofran 4 mg IV all given. With good results. Stat CT done: 1. 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 2. Interval placement of a left nephroureteral stent with unchanged mild hydronephrosis. Interval passing of a ureteral stone and left mid zone renal stone. PAIN: Added extended release oxybutynin, continue scheduled acetaminophen and oxycodone. Added prn IV dilaudid and IV levsin prn, GI: Regular diet as tolerated, mIVF 75 ml/hr, + nausea and vomiting due to uncontrolled pain, zofran prn 1st line, added compazine prn 2nd line : voiding, light blood tinged urine ID: Urine and blood cultures NGTD, continue on vancomycin and cefipime DVT ppx: SCD's and SQ lovenox Vascular: They are aware of worsening pain, will also review CT and will continue to follow, appreciate recommendations Gisele Courtney NP 07/06/2023 [facility] Urology Service Cosigned by Marcus Gamboa MD at 07/07/2023 6:23 AM INVESTIGATION OFFICER STIGATION OFFICER STIGATION OFFICER * Georgia Novoa MD - 07/06/2023 6:00 AM CST Vascular Surgery Daily Progress Patient Name/MRN: Eriberto Chau [id number] Treatment Team: Vascular Surgery- Attending: Marcus Gamboa* Today's Date: 07/06/2023 Room/Bed: [id number] Admit Date: 07/04/2023 Code Status: Full Code Subjective Chief complaint: left ureteral stone Hospital course S/p ureteral stone extraction and ureteral stent 07/04 with urology Events Over Last 24 Hours: Febrile yesterday, tmax 102.9; per patient and mother he experienced significant back and left flank pain overnight which has subsided with analgesics. Per patient, it also responds well to lyrica Prompted CT A/P which showed stable dissection and suprarenal aneurysmal component compared to prior CTA Assured patient that current Sx do not seem attributable to vascular etiology Allergies Allergen Reactions Lisinopril Angioedema Amoxicillin Hives Current Facility-Administered Medications Medication Dose Route Frequency Provider Last Rate Last Admin acetaminophen (TYLENOL) tablet 1,000 mg 1,000 mg oral Q6H Kristine David MD 1,000 mg at 07/06/23 1208 albuterol HFA (PROVENTIL HFA,VENTOLIN HFA,PROAIR HFA) 90 mcg/actuation inhaler 2 puff 2 puff inhalation Q4H PRN (RT) Terrell Luna MD amLODIPine (NORVASC) tablet 10 mg 10 mg oral Daily Terrell Luna MD 10 mg at 837 aspirin chewable tablet 81 mg 81 mg oral Daily Terrell Luna MD 81 mg at 07/06/23 0838 calcium carbonate (TUMS) chewable tablet 500 mg 200 mg of elemental calcium oral TID PRN Kristine Viera MD Carrier Fluids for Secondary Infusion - 0.9% Sodium Chloride 30 mL intravenous PRN Terrell Luna MD carvediloL (COREG) tablet 25 mg 25 mg oral BID with meals (bkfst, dinner) Terrell Luna MD 25 mg at 07/06/23 0837 cefepime (MAXIPIME) 1,000 mg/10 mL in sterile water (premix) 1,000 mg 1,000 mg intravenous Q12H Gisele Mckeon NP Stopped at 07/06/23 1211 enoxaparin (LOVENOX) syringe 40 mg 40 mg subcutaneous Daily-2100 Gisele Courtney [employer] 40 mg at 07/05/23 2126 gabapentin (NEURONTIN) capsule 300 mg 300 mg oral TID Terrell Luna MD 300 mg at 07/06/23 0837 hydrALAZINE (APRESOLINE) tablet 50 mg 50 mg oral TID Terrell Luna MD 50 mg at 07/06/23 0838 HYDROmorphone (DILAUDID) injection 0.5 mg 0.5 mg intravenous Q2H PRN America Rowe MD 0.5 mg at 07/06/23 1254 hyoscyamine (LEVSIN) injection 0.25 mg 0.25 mg intravenous Q6H PRN Gisele Courtney NP Lactated Ringer's (LR) infusion 125 mL/hr intravenous Continuous America Rowe MD 125 mL/hr at 07/06/23 1214 125 mL/hr at 07/06/23 1214 methocarbamoL (ROBAXIN) tablet 750 mg 750 mg oral TID PRN Terrell Luna MD 750 mg at 07/06/23 0838 ondansetron (ZOFRAN) injection 4 mg 4 mg intravenous Q6H PRN Gisele Courtney, [employer] SAL[employer] PROCESSOR 4 mg at 07/05/23 2247 oxyBUTYnin XL (DITROPAN-XL) extended release tablet 10 mg 10 mg oral Daily Gisele Courtney [employer] PROCESSOR 10 mg at 07/06/23 1206 oxyCODONE (ROXICODONE) tablet 5 mg 5 mg oral Q4H PRN America Rowe MD 5 mg at 07/06/23 0837 phenazopyridine (PYRIDIUM) tablet 200 mg 200 mg oral TID with meals Gisele Courtney [employer] PROCESSOR 200 mg at 07/06/23 1206 prochlorperazine (COMPAZINE) injection 5 mg 5 mg intravenous Q6H PRN Gisele Courtney, [employer] SALVAGE PROCESSOR 5 mg at 07/06/23 0837 ramelteon (ROZEREM) tablet 8 mg 8 mg oral Nightly PRN Kristine Viera MD senna-docusate (PERICOLACE) 8.6-50 mg per tablet 2 tablet 2 tablet oral BID Terrell Luna MD 2 tablet at 07/06/23 0838 simethicone (MYLICON) chewable tablet 80 mg 80 mg oral BID PRN Kristine Viera MD 80 mg at 07/06/23 0837 sodium chloride 0.9% flush 0.5-20 mL 0.5-20 mL intra-catheter Q8H SUSAN Terrell Hooks MD 10 mL at 07/06/23 0617 sodium chloride 0.9% flush 0.5-20 mL 0.5-20 mL intra-catheter PRN Terrell Luna MD 10mL at 07/06/23 1038 tamsulosin (FLOMAX) extended release capsule 0.4 mg 0.4 mg oral Daily with dinner Terrell Luna MD 0.4 mg at 07/05/23 1844 vancomycin 1500 mg/515 mL in sodium chloride 0.9% (premix) 1,500 mg 15 mg/kg intravenous Q12H Gisele Courtney, [employer] SALVAGE PROCESSOR Stopped at 07/06/23 0456 Objective Vitals: 24hr Min/Max: Temp Min: 36.3 ??C (97.3 ??F) Max: 38 ??C (100.4 ??F) Pulse Min: 70 Max: 100 BP Min: 81/47 Max: 143/85 Resp Min: 16 Max: 18 SpO2 Min: 88 % Max: 100 % Most Recent : Vitals: 07/06/23 1203 BP: 130/73 Pulse: 70 Resp: 18 Temp: SpO2: 90% Physical Exam: Constitutional: alert, uncomfortable appearing Neuro: alert, following commands. Sensation grossly intact. Moving all extremities. HENT: airway midline and patent, no secretions Eyes: EOMI no scleral icterus CV: tachycardic rate and rhythm Pulmonary: Nonlabored breathing. Symmetric chest expansion. No accessory muscle use. Abdomen: Soft, left flank pain reproducible with palpation and point tenderness to palpation lumbarspine and left paraspinal area, nondistended Extremities: no edema, symmetric, well-developed Skin: warm/dry/intact Pulses: palpable DP/PT bilaterally Diet: Dietary Orders (From admission, onward) Start Ordered 07/06/23 1126 Adult Diet Regular Diet effective now Question: ([facility]) Diet type Answer: Regular 07/06/23 1125 07/05/23 1453 Oral Nutrition Supplements ([facility]) Select Supplement: Thrive - Any Flavor; Quantity (# of cans): 1 can All Meals Question Answer Comment ([facility]) Select Supplement: Thrive - Any Flavor Quantity (# of cans): 1 can 07/05/23 1452 Is&Os: I/O last 2 completed shifts: In: 0 Out: 1696 [Urine:1696] I/O this shift: In: 1020 [I.V.:1010; IV Piggyback:10] Out: 625 [Urine:625] Labs/Imaging: Recent Labs Lab Units 07/06/23 0526 07/05/23 2114 07/05/23 1309 WBC K/cumm 15.7* 19.6* 15.3* HEMOGLOBIN g/dL 7.9* 7.8* 9.0* HEMATOCRIT % 23.9* 24.9* 28.1* PLATELETS K/cumm 327 351 359 Recent Labs Lab Units 07/05/234 07/04/23 1223 SODIUM mmol/L 140 137 POTASSIUM PLASMA mmol/L 3.6 4.2 CHLORIDE mmol/L 104 101 CO2 mmol/L 25 23 BUN SERUM mg/dL 17 18 CREATININE mg/dL 1.43* 1.33* GLUCOSE mg/dL 102 98 CALCIUM mg/dL 8.7 10.1 CTA Chest Abdomen Pelvis Addendum Date: 07/05/2023 Addendum: Aortic measurements to add to findings: Maximum descending thoracic aorta: 52 x 47 mm, previously 49 x 45 mm Dictated by: Nigel Dooley M.D. The radiology attending physician has personally reviewed this study, and had reviewed and/or edited this written report and agrees withit. Electronically signed by: Katy Llamas M.D. Result Date: 07/05/2023 1. 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 Thereis been interval slight increase in size of the aneurysm and caliber of the descending thoracic aorta which may be related to persistent filling of the false lumen. No evidence of stent migration 2. Obstructing stone in the proximal left ureter with resultant mild left hydronephrosis which may account for patient's reported abdominal pain.] Note, given numerous small bilateral renal stones, consider metabolic workup for further evaluation. 3. Slight increase in size of a focal outpouching alongthe left common femoral artery which may represent a small left common femoral artery pseudoaneurysm versus increased opacification within a vascular access device. The Non Critical results were discussed with Jonathan Borja MD by Dr. Devyn Dooley on 07/04/2023 at 2:46 PM Dictated by: Nigel Dooley M.D. The radiology attending physician has personally reviewed this study, and had reviewed and/or edited this written report and agrees with it. Electronically signed by: Katy Llamas M.D. XR Chest 1 Vw Portable Result Date: 07/04/2023 Comparison 06/16/2023 Thoracic endovascular stent grafting redemonstrated No new focal consolidation, pneumothorax, or pleural effusion. Stable cardiomediastinal silhouette. Electronically signed by:Erlinda McgarryD. Assessment/Plan Patient Active Problem List Diagnosis Dissection of [...] ovale) Eriberto Chau is a 33 y.o. 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 - no acute vascular surgery intervention - continue ureteral stone management per primary team - recommend pain management consult - Vascular Surgery will continue to follow. Will plan for outpatient follow up in with repeat CTimaging The care plan above has been or will be discussed with attending physician. Any changes will be communicated to the primary team. Please contact the Vascular Surgery Consult Service at the number listed below with any questions or concerns regarding the surgical management of this patient. Georgia Novoa MD Resident Physician Vascular Surgery Vascular Consult Cosigned by Nikhil Samuel MD at 07/18/2023 11:03 AM INVESTIGATION OFFICER STIGATION OFFICER STIGATION OFFICER * Kristy Headley MD - 07/05/2023 12:41 PM CST Vascular Surgery Daily Progress Patient Name/MRN: Eriberto Chau [id number] Treatment Team: Vascular Surgery- Attending: Marcus Gamboa* Today's Date: 07/05/2023 Room/Bed: [id number] Admit Date: 07/04/2023 Code Status: Full Code Subjective Chief complaint: left ureteral stone Events Over Last 24 Hours: S/p ureteral stone extraction and stenting yesterday evening AF, tachycardic, normotensive with nausea and recurrent left flank pain this AM Allergies Allergen Reactions Lisinopril Angioedema Amoxicillin Hives Current Facility-Administered Medications Medication Dose Route Frequency Provider Last Rate Last Admin acetaminophen (TYLENOL) tablet 1,000 mg 1,000 mg oral Q6H PRN Terrell Luna MD 1,000 mg at 07/05/23 0411 albuterol HFA (PROVENTIL HFA,VENTOLIN HFA,PROAIR HFA) 90 mcg/actuation inhaler 2 puff 2 puff inhalation Q4H PRN (RT) Terrell Luna MD amLODIPine (NORVASC) tablet 10 mg 10 mg oral Daily Terrell Luna MD 10 mg at 846 aspirin chewable tablet 81 mg 81 mg oral Daily Terrell Luna MD calcium carbonate (TUMS) chewable tablet 500 mg 200 mg of elemental calcium oral TID PRN Kristine Viera MD Carrier Fluids for Secondary Infusion - 0.9% Sodium Chloride 30 mL intravenous PRN Terrell Luna MD carvediloL (COREG) tablet 25 mg 25 mg oral BID with meals (bkfst, dinner) Terrell Luna MD 25 mg at 07/05/23 0846 cefepime (MAXIPIME) 1,000 mg/10 mL in sterile water (premix) 1,000 mg 1,000 mg intravenous Q12H Gisele Mckeon NP gabapentin (NEURONTIN) capsule 300 mg 300 mg oral TID Terrell Luna MD 300 mg at 07/05/23 0847 hydrALAZINE (APRESOLINE) tablet 50 mg 50 mg oral TID Terrell Luna MD 50 mg at 07/05/23 0846 Lactated Ringer's (LR) infusion 100 mL/hr intravenous Continuous Navid Johnson MD 100 mL/hr at 07/05/23 0446 100 mL/hr at 07/05/23 0446 methocarbamoL (ROBAXIN) tablet 750 mg 750 mg oral TID PRN Terrell Luna MD 750 mg at 07/04/23 2347 ondansetron (ZOFRAN) injection 4 mg 4 mg intravenous Q6H PRN Gisele Courtney, TREE oxyBUTYnin (DITROPAN) tablet 5 mg 5 mg oral Q6H PRN Terrell Luna MD 5 mg at 625 oxyCODONE (ROXICODONE) tablet 5 mg 5 mg oral Q4H PRN Terrell Luna MD 5 mg at 07/05/23 0847 phenazopyridine (PYRIDIUM) tablet 200 mg 200 mg oral TID with meals Gisele Courtney, TREE prochlorperazine (COMPAZINE) injection 5 mg 5 mg intravenous Q6H PRN Gisele Courtney, TREE ramelteon (ROZEREM) tablet 8 mg 8 mg oral Nightly PRN Kristine Viera MD senna-docusate (PERICOLACE) 8.6-50 mg per tablet 2 tablet 2 tablet oral BID Terrell Luna MD 2 tablet at 07/05/23 0846 simethicone (MYLICON) chewable tablet 80 mg 80 mg oral BID PRN Kristine Viera MD sodium chloride 0.9% flush 0.5-20 mL 0.5-20 mL intra-catheter Q8H SUSAN Terrell Hooks MD 10 mL at 07/04/23 2216 sodium chloride 0.9% flush 0.5-20 mL 0.5-20 mL intra-catheter PRN Terrell Luna MD tamsulosin (FLOMAX) extended release capsule 0.4 mg 0.4 mg oral Daily with dinner Terrell Luna MD vancomycin 1500 mg/515 mL in sodium chloride 0.9% (premix) 1,500 mg 15 mg/kg intravenous Q12H Gisele Courtney, TREE Objective Vitals: 24hr Min/Max: Temp Min: 36.3 ??C (97.3 ??F) Max: 37.2 ??C (99 ??F) Pulse Min: 69 Max: 108 BP Min: 77/51 Max: 154/97 Resp Min: 8 Max: 23 SpO2 Min: 74 % Max: 100 % Most Recent : Vitals: 07/05/23 0845 BP: 138/91 Pulse: 108 Resp: Temp: SpO2: 100% Physical Exam: Constitutional: alert, uncomfortable appearing Neuro: alert, following commands. Sensation grossly intact. Moving all extremities. HENT: airway midline and patent, no secretions Eyes: EOMI no scleral icterus CV: tachycardic rate and rhythm Pulmonary: Nonlabored breathing. Symmetric chest expansion. No accessory muscle use. Abdomen: Soft, left flank pain, nondistended Extremities: no edema, symmetric, well-developed Skin: warm/dry/intact Pulses: palpable DP/PT bilaterally Diet: Dietary Orders (From admission, onward) Start Ordered 07/04/232147 Adult Diet Regular Diet effective now Question: ([facility]) Diet type Answer: Regular 07/04/232146 Is&Os: I/O last 2 completed shifts: In: 801 [P.O.:50; I.V.:751] Out: 730 [Urine:725; Blood:5] No intake/output data recorded. Labs/Imaging: Recent Labs Lab Units 07/04/23 1223 WBC K/cumm 10.9* HEMOGLOBIN g/dL 9.7* HEMATOCRIT % 31.1* PLATELETS K/cumm 437* Recent Labs Lab Units 07/04/23 1223 SODIUM mmol/L 137 POTASSIUM PLASMA mmol/L 4.2 CHLORIDE mmol/L 101 CO2 mmol/L 23 BUN SERUM mg/dL 18 CREATININE mg/dL 1.33* GLUCOSE mg/dL 98 CALCIUM mg/dL 10.1 CTA Chest Abdomen Pelvis Addendum Date: 07/05/2023 Addendum: Aortic measurements to add to findings: Maximum descending thoracic aorta: 52 x 47 mm, previously 49 x 45 mm Dictated by: Nigel Dooley M.D. The radiology attending physician has personally reviewed this study, and had reviewed and/or edited this written report and agrees withit. Electronically signed by: Katy Llamas M.D. Result Date: 07/05/2023 1. 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 Thereis been interval slight increase in size of the aneurysm and caliber of the descending thoracic aorta which may be related to persistent filling of the false lumen. No evidence of stent migration 2. Obstructing stone in the proximal left ureter with resultant mild left hydronephrosis which may account for patient's reported abdominal pain.] Note, given numerous small bilateral renal stones, consider metabolic workup for further evaluation. 3. Slight increase in size of a focal outpouching alongthe left common femoral artery which may represent a small left common femoral artery pseudoaneurysm versus increased opacification within a vascular access device. The Non Critical results were discussed with Jonathan Borja MD by Dr. Devyn Dooley on 07/04/2023 at 2:46 PM Dictated by: Nigel Dooley M.D. The radiology attending physician has personally reviewed this study, and had reviewed and/or edited this written report and agrees with it. Electronically signed by: Katy Llamas M.D. XR Chest 1 Vw Portable Result Date: 07/04/2023 Comparison 06/16/2023 Thoracic endovascular stent grafting redemonstrated No new focal consolidation, pneumothorax, or pleural effusion. Stable cardiomediastinal silhouette. Electronically signed by:Shahrzad Zimmerman M.D. Assessment/Plan Patient Active Problem List Diagnosis Dissection of aorta, unspecified portion of aorta (HCC) Dissection of thoracoabdominal aorta (CMS/HCC) (HCC) Epistaxis Pneumonia HTN (hypertension) Urinary retention Dissection of abdominal aorta (CMS/HCC) (HCC) Moderate malnutrition (CMS/HCC) (HCC) Polysubstance abuse (CMS/HCC) (HCC) Infrarenal abdominal aortic aneurysm, without rupture (HCC) Chronic back pain Pseudoaneurysm following procedure (CMS/HCC) (HCC) Ureteral stone Left flank pain Eriberto Chau is a 33 y.o. 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 - no acute vascular surgery intervention - continue ureteral stone management per primary team - Vascular Surgery will continue to follow. Will plan for one month follow up The care plan above has been or will be discussed with attending physician. Any changes will be communicated to the primary team. Please contact the Vascular Surgery Consult Service at the number listed below with any questions or concerns regarding the surgical management of this patient. Kristy Headley MD Resident Physician Vascular Surgery Vascular Consult Cosigned by Nikhil Samuel MD at 07/18/2023 11:03 AM INVESTIGATION OFFICER STIGATION OFFICER STIGATION OFFICER * Gisele Courtney [employer] - 07/05/2023 12:30 PM CST Images from the original note were not included. Urology Progress Note Subjective Patient is a 33 y.o. 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 (Lizzie), hypertension who presents today with a chief complaint of left lower abdominal pain, left flank pain. He was found to have L 3mm obstructing proximal ureteral stone. Interval History: VSS, afebrile overnight, + uncontrolled pain causing nausea and vomiting. Objective Recent Vitals(24hr Range): Vitals: 07/05/23 0412 07/05/23 0630 07/05/23 0840 07/05/23 0845 BP: 114/61 138/91 138/91 BP Location: Left arm Patient Position: Lying Pulse: 73 72 102 108 Resp: Temp: 36.9 ??C (98.4 ??F) 36.3 ??C (97.3 ??F) 37.2 ??C (99 ??F) TempSrc: Oral SpO2: 98% (!) 74% 98% 100% Weight: Height: I and Os: I/O last 3 completed shifts: In: 801 [P.O.:50; I.V.:751] Out: 730 [Urine:725; Blood:5] No intake/output data recorded. I/O last 2 completed shifts: In: 801 [P.O.:50; I.V.:751] Out: 730 [Urine:725; Blood:5] No intake/output data recorded. Physical exam: Physical Exam Constitutional: oriented to person, place, and time and well-developed, well- nourished, and in no distress. Vital signs are normal. Eye: pupils equal. Cardiovascular: Normal rate and regular rhythm. Pulmonary/Chest: Effort normal. No accessory muscle usage. No respiratory distress. Abdominal: Soft. There is left CVA tenderness. There is appropriate incisional Tenderness. Neurological: alert and oriented to person, place, and time. Gu: voiding Lab/Radiology/Diagnostic Review: Chem/LFT Lab History Latest Ref Rng & Units 06/21/2023 04:01 06/22/2023 01:09 06/23/2023 07/04/2023 12:23 Labs-Chem/LFT Sodium 135 - 145 mmol/L 135 137 137 137 Creatinine 0.80 - 1.30 mg/dL 0.87 0.85 1.05 1.33 Bilirubin, total 0.1 - 1.2 mg/dL 0.3 0.3 AST 10 - 50 Units/L 11 13 ALT 7 - 55 Units/L 10 13 Alk phos 40 - 130 Units/L 90 105 CrCl- Actual Body Weight (Cockcroft-Gault) 171.1 175.1 141.7 111 Details More values are hidden. Newest values shown. Go to activity for more data. Hematology Lab History Latest Ref Rng & Units 06/21/2023 06/22/2023 01:09 06/23/2023 07/04/2023 12:23 Labs - Hematology WBC 3.8 - 9.9 K/cumm 7.3 8.5 10.3 10.9 Total Hb, POC 13.0 - 17.5 g/dL 9.8 9.6 9.3 9.7 Hct 38.9 - 50.3 % 30.7 29.8 29.3 31.1 Plt 150 - 400 K/cumm 477 454 389 437 Neutrophil abs 1.5 - 6.5 K/cumm 8.5 Lymphocytes, abs 0.8 - 3.3 K/cumm 1.2 Details More abnormal values are hidden. Newest values shown. Go to activity for more data. More values are hidden. Newest values shown. Go to activity for more data. Assessment /Plan Principal Problem: Ureteral stone Active Problems: Left flank pain 33 y.o. male s/p left stent placement on 07/04/2026. Plan: PAIN: continue prn acetaminophen and oxycodone. IV dilaudid x1 this AM, GI: Regular diet as tolerated, mIVF 75 ml/hr, + nausea and vomiting due to uncontrolled pain, zofran prn 1st line, added compazine prn 2nd line : voiding, KUB to check stent placement ID: pt developed temp 103 at 12:40 today. Urine and blood cultures ordered and pt started on vancomycin and cefipime, CXR DVT ppx: SCD's and SQ lovenox Vascular: Will continue to follow, appreciate recommendations Gisele Courtney NP 07/05/2023 [facility] Urology Cosigned by Marcus Gamboa MD at 07/14/2023 5:32 PM INVESTIGATION OFFICER STIGATION OFFICER STIGATION OFFICER STIGATION OFFICER STIGATION OFFICER * Navid Johnson MD - 07/04/2023 10:51 PM CST Postoperative Assessment Subjective Pain controlled. Denies N/V. Objective Vitals: Vitals: 07/04/23 2150 BP: 104/56 Pulse: 74 Resp: Temp: 36.9 ??C (98.4 ??F) SpO2: 96% Gen: A&OX3, no acute distress Pulm: non-labored breathing with symmetrical expansion CV: RRR Abd: appropriately tender on left side Skin: wwp : has not voided since the procedure, will monitor output Assessment 33 y.o. 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 (Lizzie), hypertension who presents today with a chief complaint of left lower abdominal pain, left flank pain. He was found to have L 3mm obstructing proximal ureteral stone with mild hydronephrosis, ANGI of 1.33 and WBC 10.9. POD0 s/p CYSTOSCOPY, URETEROSCOPY (L) with EXTRACTION STONE (L), PLACEMENT STENT - URETERAL (L) . Doing well. Plan Neuro: Pain controlled with oral meds CV: Vital Signs Stable Pulm: Incentive Spirometer GI: IV fluids and adult regular diet : patient has not voided since the procedure, will monitor closely. ID: Periop antibiotics Activity: OOB, Ambulate TID, VTE prophylaxis: SCDs, Cosigned by Marcus Gamboa MD at 07/05/2023 7:13 AM INVESTIGATION OFFICER STIGATION OFFICER STIGATION OFFICER Associated attestation - Marcus Gamboa MD - 07/05/2023 7:13 AM INVESTIGATION OFFICER I have seen and examined the patient on 07/04/2023. I agree with the findings and plan of care as documented in the resident's/fellow's note.. documented in this encounter Consult Notes * Chung Burleson MD - 07/07/2023 6:22 PM CSTAssociated Order(s): IP CONSULT TO PAIN MANAGEMENT Pain Service Consult Eriberto Chau, [id number] Reason for Consult: Post procedural abdominal pain Requesting Provider: Marcus Gamboa MD Chief Complaint: L sided abdominal pain Subjective Eriberto Chau is a 33 y.o. year old male referred by the urology team for consultation regarding his L sided uncontrolled abdominal pain. He has a history of TAA c/b dissection s/p FEVAR, HTN, chronic back pain, polysubstance abuse, and ureteral stone s/p cystoscopy, ureteroscopy, ureteral stent placement, and extraction of stone (07/04/2023). The Pain Service is consulted for L sided abdominal pain. The pain is described as occasional, throbbing, stabbing, and cramping. It radiates to the L flank . His pain ranges in severity from 7-10/10. Pain right now is 7/10 on the numeric pain scale. Pain is worse during evening. Pain is better during no specific time of the day. Provocative factors include straining, and urination. Alleviating factors include heat and rest. Episode of pain last night had patient writhing in pain, unable to talk. Patient additionally complains of lumbosacral back pain c/b allodynia, and burning in both described as stepping on sharp stones barefoot. Patient has tried various pharmacotherapies with some degree of success: Gabapentinoids Y Comments Anticonvulsants Y Comments Opioids Y Comments Gabapentin (Neurontin) [x] Carbamazepine (Tegretol) [] Tramadol (Ultram) [] Pregabalin (Lyrica) [] Oxcarbazepine (Trileptal) [] Tapentadol (Nucynta) [] TCA: Topiramate (Topamax) [] Buprenorphine ([place], [place]rans) [] Nortriptyline (Pamelor) [] Lamotrigine (Lamictal) [] Oxycodone/APAP (Percocet) [] Amitriptyline (Elavil) [] Levetiracetam (Keppra) [] Hydrocodone/APAP ([place]) [] Desipramine (Norpramin) [] Valproate (Depakote) [] Codeine/APAP (Tylenol#3/4) [] Imipramine (Tofranil) [] Mexiletine (Mexitil) [] Methadone [] SNRI: Muscle Relaxants: Fentanyl Patch (Duragesic) [] Duloxetine (Cymbalta) [] Cyclobenzaprine (Flexeril) [] NSAIDS: Venlafaxine (Effexor) [] Methocarbamol (Robaxin) [x] Ibuprofen (Advil, Motrin) [] Milnacipran ([place]) [] Tizanidine (Zanaflex) [] Naproxen (Aleve) [] Others: Baclofen (Lioresal) [] Meloxicam (Mobic) [] Acetaminophen (Tylenol) [x] Metaxalone (Skelaxin) [] Diclofenac (Voltaren) [] Low dose naltrexone [] Carisoprodol (Soma) [] Indomethacin (Tivorbex) [] Topical lidocaine [] Diazepam (Valium) [x] Nabumetone (Relafen) [] Diclofenac gel (Voltaren) [] Nabumetone (Relafen) [] Other [] Etodolac (Lodine) [] Current Inpatient Analgesic Regimen: APAP 1000mg Q6 Ketorolac 15 mg Q6hr for 6 doses Oxycodone 5 mg Q4 prn Hydromorphone 0.5mg Q2 prn Gabapentin 300 TID Robaxin 500 mg TID PRN Antispasmotics: Valium x1 Oxybutynin XL 10mg daily Flomax 0.4mg daily Hyocyamine 0.25mg Past Interventional Therapies: Past Medical History: Diagnosis Date Hypertension Kidney stones Past Surgical History: Procedure Laterality Date ABDOMINAL AORTIC ANEURYSM REPAIR Medications Prior to Admission Medication Sig Dispense Refill Last Dose acetaminophen 500 mg capsule Take 2 capsules (1,000 mg total) by mouth every 6 (six) hours as needed for pain 30 tablet 0 Past Week albuterol HFA (PROVENTIL HFA,VENTOLIN HFA,PROAIR HFA) 90 mcg/actuation inhaler Inhale 2 puffs every4 (four) hours as needed for wheezing 1 each 0 Past Month amLODIPine (NORVASC) 10 mg tablet Take 1 tablet (10 mg total) by mouth daily 30 tablet 11 07/04/2023 aspirin 81 mg chewable tablet Take 1 tablet (81 mg total) by mouth daily 30 tablet 11 07/04/2023 carvediloL (COREG) 12.5 mg tablet Take 2 tablets (25 mg total) by mouth 2 (two) times a day with meals 120 tablet 11 07/04/2023 gabapentin (NEURONTIN) 300 mg capsule Take 1 capsule (300 mg total) by mouth 3 (three) times a day 90 capsule 1 07/04/2023 hydrALAZINE (APRESOLINE) 50 mg tablet Take 1 tablet (50 mg total) by mouth 3 (three) times a day 90tablet 11 07/04/2023 lidocaine (ASPERCREME) 4 % adhesive patch,medicated Place 3 patches on the skin daily Past Week methocarbamoL (ROBAXIN) 500 mg tablet Take 1.5 tablets (750 mg total) by mouth 3 (three) times a day as needed for muscle spasms for up to 90 doses 30 tablet 2 07/04/2023 ondansetron ODT (ZOFRAN-ODT) 4 mg disintegrating tablet Take 1 tablet (4 mg total) by mouth every 8(eight) hours as needed for nausea or vomiting 10 tablet 0 07/04/2023 senna-docusate (PERICOLACE) 8.6-50 mg Take 2 tablets by mouth 2 (two) times a day To prevent constipation 40 tablet 0 07/04/2023 tamsulosin (FLOMAX) 0.4 mg extended release capsule Take 1 capsule (0.4 mg total) by mouth daily with dinner 30 capsule 1 07/04/2023 QUEtiapine (SEROquel) 50 mg tablet Take 1 tablet (50 mg total) by mouth nightly 30 tablet 0 Allergies Allergen Reactions Lisinopril Angioedema Amoxicillin Hives Social History Tobacco Use Smoking status: Never Smokeless tobacco: Never Substance and Sexual Activity Drug use: Not Currently Sexual activity: None Alcohol Use: Not At Risk (07/04/2023) AUDIT-C Frequency of Alcohol Consumption: Never Average Number of Drinks: Patient does not drink Frequency of Binge Drinking: Never History reviewed. No pertinent family history. None Review of Systems: Review of Systems Scheduled Medications: acetaminophen, 1,000 mg, oral, Q6H SUSAN amLODIPine, 10 mg, oral, Daily aspirin, 81 mg, oral, Daily carvediloL, 25 mg, oral, BID with meals (bkfst, dinner) cefepime, 1,000 mg, intravenous, Q12H SUSAN enoxaparin, 40 mg, subcutaneous, Daily-2100 gabapentin, 300 mg, oral, TID hydrALAZINE, 50 mg, oral, TID hyoscyamine, 0.25 mg, intravenous, Q6H SUSAN ketorolac, 15 mg, intravenous, Q6H SUSAN methocarbamoL, 750 mg, oral, TID oxyBUTYnin XL, 10 mg, oral, Daily phenazopyridine, 200 mg, oral, TID with meals senna-docusate, 2 tablet, oral, BID sodium chloride 0.9%, 0.5-20 mL, intra-catheter, Q8H SUSAN tamsulosin, 0.4 mg, oral, Daily with dinner vancomycin, 15 mg/kg, intravenous, Q12H Continuous Medications: Lactated Ringer's, 125 mL/hr, Last Rate: 125 mL/hr (07/07/23 0856) PRN Medications: albuterol HFA, 2 puff calcium carbonate, 200 mg of elemental calcium sodium chloride 0.9%, 30 mL HYDROmorphone, 0.5 mg, 0.5 mg at 07/07/23 1444 ondansetron, 4 mg, 4 mg at 07/07/23 1018 oxyCODONE, 5 mg, 5 mg at 07/07/23 1651 prochlorperazine, 5 mg, 5 mg at 07/07/23 0634 ramelteon, 8 mg simethicone, 80 mg, 80 mg at 07/06/23 0837 sodium chloride 0.9%, 0.5-20 mL, 10 mL at 07/07/23 0328 Current Facility-Administered Medications Medication Dose Route Frequency Provider Last Rate Last Admin acetaminophen (TYLENOL) tablet 1,000 mg 1,000 mg oral Q6H SUSAN Kristine Viera MD 1,000 mg at 07/07/23 1712 albuterol HFA (PROVENTIL HFA,VENTOLIN HFA,PROAIR HFA) 90 mcg/actuation inhaler 2 puff 2 puff inhalation Q4H PRN (RT) Terrell Luna MD amLODIPine (NORVASC) tablet 10 mg 10 mg oral Daily Terrell Luna MD 10 mg at 847 aspirin chewable tablet 81 mg 81 mg oral Daily Terrell Luna MD 81 mg at 07/07/23 0846 calcium carbonate (TUMS) chewable tablet 500 mg 200 mg of elemental calcium oral TID PRN Kristine Viera MD Carrier Fluids for Secondary Infusion - 0.9% Sodium Chloride 30 mL intravenous PRN Terrell Luna MD carvediloL (COREG) tablet 25 mg 25 mg oral BID with meals (bkfst, dinner) Terrell Luna MD 25 mg at 07/07/23 1720 cefepime (MAXIPIME) 1,000 mg/10 mL in sterile water (premix) 1,000 mg 1,000 mg intravenous Q12H Gisele Mckeon NP Stopped at 07/07/23 1252 enoxaparin (LOVENOX) syringe 40 mg 40 mg subcutaneous Daily-2100 Gisele Courtney NP 40 mg at 07/06/232014 gabapentin (NEURONTIN) capsule 300 mg 300 mg oral TID Terrell Luna MD 300 mg at 07/07/23 171 hydrALAZINE (APRESOLINE) tablet 50 mg 50 mg oral TID Terrell Luna MD 50 mg at 07/07/23 171 HYDROmorphone (DILAUDID) injection 0.5 mg 0.5 mg intravenous Q2H PRN America Rowe MD 0.5 mg at 07/07/23 1444 hyoscyamine (LEVSIN) injection 0.25 mg 0.25 mg intravenous Q6H [facility] Gisele Courtney NP 0.25 mg at 07/07/23 1713 ketorolac (TORADOL) 15 mg/mL injection 15 mg 15 mg intravenous Q6H [facility] Gisele Courtney [employer] 15 mg at07/07/23 1713 Lactated Ringer's (LR) infusion 125 mL/hr intravenous Continuous America Rowe MD 125 mL/hr at 07/07/23 0856 125 mL/hr at 07/07/23 0856 methocarbamoL (ROBAXIN) tablet 750 mg 750 mg oral TID Gisele Courtney NP ondansetron (ZOFRAN) injection 4 mg 4 mg intravenous Q6H PRN Gisele Courtney NP 4 mg at 07/07/23 1018 oxyBUTYnin XL (DITROPAN-XL) extended release tablet 10 mg 10 mg oral Daily Gisele Courtney NP 10 mg at 07/07/23 0847 oxyCODONE (ROXICODONE) tablet 5 mg 5 mg oral Q4H PRN America Rowe MD 5 mg at 07/07/23 1651 phenazopyridine (PYRIDIUM) tablet 200 mg 200 mg oral TID with meals Gisele Courtney [employer] 200 mg at 07/07/23 1713 prochlorperazine (COMPAZINE) injection 5 mg 5 mg intravenous Q6H PRN Gisele Courtney NP 5 mg at 07/07/23 0634 ramelteon (ROZEREM) tablet 8 mg 8 mg oral Nightly PRN Kristine Viera MD senna-docusate (PERICOLACE) 8.6-50 mg per tablet 2 tablet 2 tablet oral BID Terrell Luna MD 2 tablet at 07/07/23 0845 simethicone (MYLICON) chewable tablet 80 mg 80 mg oral BID PRN Kristine Viera MD 80 mg at 07/06/23 0837 sodium chloride 0.9% flush 0.5-20 mL 0.5-20 mL intra-catheter Q8H SUSAN Terrell Hooks MD 10 mL at 07/07/23 1247 sodium chloride 0.9% flush 0.5-20 mL 0.5-20 mL intra-catheter PRN Terrell Luna MD 10mL at 07/07/23 0328 tamsulosin (FLOMAX) extended release capsule 0.4 mg 0.4 mg oral Daily with dinner Terrell Luna MD 0.4 mg at 07/07/23 1712 vancomycin 1500 mg/515 mL in sodium chloride 0.9% (premix) 1,500 mg 15 mg/kg intravenous Q12H Gisele Courtney NP Stopped at 07/07/23 1714 Dietary: Dietary Orders (From admission, onward) Start Ordered 07/06/23 1126 Adult Diet Regular Diet effective now Question: ([facility]) Diet type Answer: Regular 07/06/23 1125 07/05/23 1453 Oral Nutrition Supplements ([facility]) Select Supplement: Thrive - Any Flavor; Quantity (# of cans): 1 can All Meals Question Answer Comment ([facility]) Select Supplement: Thrive - Any Flavor Quantity (# of cans): 1 can 07/05/23 1452 Objective Vitals: 24hr Min/Max: Temp Min: 98.1 ??F (36.7 ??C) Max: 98.8 ??F (37.1 ??C) Pulse Min: 74 Max: 106 BP Min: 115/63 Max: 144/99 Resp Min: 16 Max: 17 SpO2 Min: 95 % Max: 100 % Most Recent : Vitals: 07/07/23 1719 BP: 127/73 Pulse: 76 Resp: Temp: 98.1 ??F (36.7 ??C) SpO2: 99% I/O last 2 completed shifts: In: 1520 [I.V.:1010; IV Piggyback:510] Out: 3650 [Urine:3650] I/O this shift: In: 2324 [P.O.:800; I.V.:999; IV Piggyback:525] Out: 1475 [Urine:1475] CONSTITUTIONAL: General appearance normal CARDIOVASCULAR: No lower extremity edema RESPIRATORY: Normal effort on room air CHEST: Symmetric. GASTROINTESTINAL: Tenderness and guarding of the left abdomen SKIN: normal PSYCHIATRIC: alert,oriented, in NAD with a full range of affect, normal behavior and no psychotic features MUSCULOSKELETAL EXAMINATION: CERVICAL SPINE: Normal extension. Normal flexion. Normal rotation and tilt. Normal cervical spine. No tenderness. UPPER EXTREMITIES: Normal range of motion. Normal muscle strength. Normal muscle bulk and tone. THORACIC SPINE: No thoracic spine tenderness. Ribs normal. LUMBOSACRAL SPINE: Paraspinal muscles normal. Tenderness to palpation of spinal processes. Tenderness at the lumbosacral region. LOWER EXTREMITIES: Normal range of motion. NEUROLOGIC EXAM: Sensory Exam: Allodynia over L3-S2 Dysasthenia over bottoms of feet, no dermatomal or nerve root distribution. Lab/Radiology/Diagnostic Review: Recent Labs Lab Units 07/06/232203 WBC K/cumm 12.6* HEMOGLOBIN g/dL 8.0* HEMATOCRIT % 24.6* PLATELETS K/cumm 368 Recent Labs Lab Units 07/06/23 2204 07/05/23 2114 07/04/23 1223 SODIUM mmol/L 140 < > 137 POTASSIUM PLASMA mmol/L 3.2* < > 4.2 CHLORIDE mmol/L 102 < > 101 CO2 mmol/L 27 < > 23 ANIONGAP mmol/L 11 < > 13 GLUCOSE mg/dL 106 < > 98 BUN SERUM mg/dL 9 < > 18 CREATININE mg/dL 0.80 < > 1.33* CALCIUM mg/dL 8.9 < > 10.1 ALBUMIN g/dL -- -- 4.1 ALK PHOS Units/L -- -- 105 ALT Units/L -- -- 13 AST Units/L -- -- 13 BILIRUBIN TOTAL mg/dL -- -- 0.3 < > = values in this interval not displayed. Assessment/Plan Eriberto Chau is a 33 y.o. male who presents with Other acute post-procedural pain, Acute Postoperative Abdominal Pain, and Low Back Pain. Plan 1. Intervention: No intervention needed at this current time. No procedure is indicated 2. Medications: a. Opioids: PO: increase Oxycodone 10mg q 4hr PRN IV: decrease Hydromorphone 0.5mg q 4hr PRN IV/GAME ROOM ATTENDANT: none SubQ: none b. Adjuvants: Continue APAP 1000mg Q6 susan Continue Ketorolac 15mg Q6 for 6 doses --> Meloxicam 15mg daily Increase gabapentin to 600 TID Increase robaxin to 750 mg TID and scheduled Continue urologic spasm treatment per primary team. We will continue to follow. Thank you for allowing us to participate in the care of this patient Aman Lindo MD Acute Pain Service Department of Anesthesiology [facility], [facility] [employer] If you have questions or concerns, please call ([phone]) the Pain Management service. After hours, this is not an in-house pager, please reserve non-urgent calls from [phone]. We are happy to address emergent calls 20/12. 07/07/23 6:22 PM For patients or family members viewing this note through [facility] programs: This note was written as a [...] no longer be involved in your care. I have seen and evaluated the patient and agree with the above Chung Burleson MD STIGATION OFFICER STIGATION OFFICER * Dominic Meraz RD - 07/07/2023 5:10 PM CST NUTRITION ASSESSMENT Nutrition Status: Patient meets criteria for severe chronic malnutrition, reference ASPEN guidelines. Present on Admission: Yes REASON FOR ASSESSMENT: Follow Up Encounter Date: 07/07/23 5:10 PM Admission Date: 07/04/2023 LOS: 2 days HPI: Patient is a 33 y.o. male w/ PMH of TAA status post TEVAR on 06/05 ([place]), hypertension who presents today with a chief complaint of left lower abdominal pain, left flank pain. He was found to have L 3mm obstructing proximal ureteral stone. Now s/p left stent placement and stone extraction. Objective Past Medical History: Diagnosis Date Hypertension [...] Scheduled Meds: acetaminophen, 1,000 mg, oral, Q6H SUSAN amLODIPine, 10 mg, oral, Daily aspirin, 81 mg, oral, Daily carvediloL, 25 mg, oral, BID with meals (bkfst, dinner) cefepime, 1,000 mg, intravenous, Q12H SUSAN enoxaparin, 40 mg, subcutaneous, Daily-2100 gabapentin, 300 mg, oral, TID hydrALAZINE, 50 mg, oral, TID hyoscyamine, 0.25 mg, intravenous, Q6H SUSAN ketorolac, 15 mg, intravenous, Q6H SUSAN methocarbamoL, 750 mg, oral, TID oxyBUTYnin XL, 10 mg, oral, Daily phenazopyridine, 200 mg, oral, TID with meals senna-docusate, 2 tablet, oral, BID sodium chloride 0.9%, 0.5-20 mL, intra-catheter, Q8H SUSAN tamsulosin, 0.4 mg, oral, Daily with dinner vancomycin, 15 mg/kg, intravenous, Q12H Continuous Infusions: Lactated Ringer's, 125 mL/hr, Last Rate: 125 mL/hr (07/07/23 0856) PRN Meds: albuterol HFA calcium carbonate sodium chloride 0.9% HYDROmorphone ondansetron oxyCODONE prochlorperazine ramelteon simethicone sodium chloride 0.9% Recent Labs Lab Units 07/06/23220307/05/23211307/04/23 1223 SODIUM mmol/L 140 < > 137 POTASSIUM PLASMA mmol/L 3.2* < > 4.2 CHLORIDE mmol/L 102 < > 101 CO2 mmol/L 27 < > 23 BUN SERUM mg/dL 9 < > 18 CREATININE mg/dL 0.80 < > 1.33* [id number] mL/min/1.73 m2 >90 < > 73 CALCIUM mg/dL 8.9 < > 10.1 ALBUMIN g/dL -- -- 4.1 PHOSPHORUS PLASMA mg/dL 2.6 -- -- MAGNESIUM mg/dL 1.7 -- -- < > = values in this interval not displayed. Recent Labs Lab Units 07/06/23220307/05/23211307/04/23 1223 GLUCOSE mg/dL 106 102 98 No results found for: ALT , AST , BILIRUBIN , ALKPHOS , LIPASE Lab Results Component Value Date TRIG 129 06/21/2023 NURSING ASSESSMENT: Last BM Date: 07/03/23 Bowel Sounds (All Quadrants): Hypoactive Emesis Assessment Emesis Color/Appearance: Yellow Toni Scale Score: 20 Type of Wound (LDA): Surgical site Vital Signs BP: 116/81 Temp: 36.9 ??C (98.4 ??F) Pulse: 91 Resp: 16 SpO2: 95 % Intake/Output Summary (Last 24 hours) at 07/07/2023 1710 Last data filed at 07/07/2023 1445 Gross per 24 hour Intake 2124 ml Output 3575 ml Net -1451 ml Adult Malnutrition Scoring Tool (MST) Have You Recently Lost Weight Without Trying?: Yes (Comment) How Much Weight Have You Lost?: 2 - 13 lb Have you been eating poorly because of a decreased appetite?: Yes Malnutrition Screening Tool (MST) Score: 2 Hunger Screen - Admission Within the past 12 months the food we bought just didn't last and we didn't have money to get more.: Never true Within the past 12 months we worried whether our food would run out before we got money to buy more.: Never true Within the past 12 months, you worried that your food would run out before you got the money to buymore.: Never true Within the past 12 months, the food you bought just didn't last and you didn't have money to get more.: Never true Anthropometrics Weight: 97.5 kg (215 lb) Admission Weight : 97.5 kg Weight Change: -1.27 kg (-2.81 lbs) IBW/kg (Calculated) : 72.6 kg Height: 175.3 cm (5' 9 ) Weight in (lb) to have BMI = 25: 168.9 BMI (Calculated): 31.7 Wt Readings from Last 10 Encounters: 07/04/23 97.5 kg (215 lb) 06/24/23 98.8 kg (217 lb 13 oz) 06/11/23 100.7 kg (222 lb 0.1 oz) 05/16/23 99.2 kg (218 lb 11.2 oz) 05/06/23 111.6 kg (246 lb 0.5 oz) ESTIMATED NEEDS: Total Kcal/kg Estimated Needs : 2438.08 Kcal/k. Type of Weight Used for Estimated Kcals: Current Total Protein Estimated Needs (gm): 87.12 Protein Needs Based on g/k.2 Type of Weight Used for Estimated Protein : [place] Fluid Needs Based on : 1 ml/kcal Dietary Orders (From admission, onward) Start Ordered 07/06/23 1126 Adult Diet Regular Diet effective now Question: ([facility]) Diet type Answer: Regular 07/06/23 1125 07/05/23 1453 Oral Nutrition Supplements ([facility]) Select Supplement: Thrive - Any Flavor; Quantity (# of cans): 1 can All Meals Question Answer Comment ([facility]) Select Supplement: Thrive - Any Flavor Quantity (# of cans): 1 can 07/05/23 1452 Allergies: Reviewed. IMPRESSION: Pt seen for follow up. He continues on regular diet w/ order for Thrive ice cream. Pt states his pain was well controlled today so he has been able to eat better. He reports having 100% of a sandwichand has been drinking a Powerade. Pt's mother at bedside states she plans to bring him something for dinner soon this evening. Pt denies N/V at this time - Last episode of emesis was 07/04 per documentation. Last BM SIDE SHOW ENTERTAINER - Noted scheduled Pericolace BID. RD following. Wt Readings from Last 10 Encounters: 07/04/23 97.5 kg (215 lb) 06/24/23 98.8 kg (217 lb 13 oz) 06/11/23 100.7 kg (222 lb 0.1 oz) 05/16/23 99.2 kg (218 lb 11.2 oz) 05/06/23 111.6 kg (246 lb 0.5 oz) 07/05: RD consulted for nutrition assessment, MST 2. Pt and mother, Meron, present during visit. Pt endorses wt loss since 04/2023 d/t being in/out of the hospital, poor appetite, and occasional N/V w/ intake. Per EMR, noted previous wt (05/01/23) - 236#. Pt current wt (07/04/23) - 215#. This indicates a loss of 21# (8.9%) in ~2 months, significant for time frame. No adipose or muscle wasting noted. Pt meets ASPEN criteria for malnutrition at this time. ASPEN MALNUTRITION ASSESSMENT: Date of completion: 07/05/23 ASPEN/AND Malnutrition Screening: Chronic illness or injury severe Energy Intake: < 75% energy intake compared to estimated energy needs > (or equal to) 1 month Weight Loss: > 7.5% in 3 months (loss of 21# (8.9%) in ~2 months) Patient Meets Criteria for Severe Malnutrition: Yes NUTRITION FOCUSED PHYSICAL EXAM: Completed, no signs of wasting noted. NUTRITION DIAGNOSIS: Nutrition Diagnosis 1: Protein-Calorie Malnutrition - Severe Related to: Pain, Vomiting, Nausea Evidenced by: Weight loss, Inadequate energy intake, Patient interview (loss of 21# (8.9%) in ~2 months) INTERVENTION(S): Summary: Assess for nutrition changes, Medical food supplement, Vitamin/mineral supplementation, Regular weights, Meals and snacks, Initial assessment, Follow up per policy Continue regular diet w/ Gatorade as medically able. Encouraged good PO intake of meals and snacks. Provide Thrive as requested. Discussed using nutrition supplements to help meet calorie and proteinneeds. Recommend MVI daily d/t nutrition status. Discussed consuming small, frequent meals and including a lean protein source with each meal/snack.Discussed importance of consuming adequate calories and protein to maintain body weight, facilitatehealing, and preserve LBM. Recommend obtaining regular scale weights as able to monitor trend. Monitor electrolytes, replete as needed. RD following. GOAL(S): Prevent further unintended weight loss during admission, Tolerance of medical food supplement by next assessment, Adequate nutrition to meet estimated needs by next assessment MONITORING/EVALUATION: Appetite, PO intake, Weight changes, Plan of care, Labs, I/O, Supplement tolerance, Electrolyte changes Dominic Meraz RD [phone] Nurse Leader-Weekend: [phone] STIGATION OFFICER * Angelica Mijares LCSW - 07/07/2023 4:43 PM CST SW consult: SW received consult for health disparity and social determinants of health. SW spoke with patient's mom regarding resource assistance needs. Patient's mom reported they have been assisting with their rent and utilities, however they are unsure how long he will be out of workand cannot financially support them alf. She also requested information and assistance with disability. SW sent several referrals via [employer] for rental/mortgage assistance, utility bill assistance, and benefits eligibility assistance. She declined the need for any food related assistance as they already get food stamps for the family. She requested someone follow up with her regarding which referrals are accepted and able to provide assistance. LIZZ Hodgson LCSW STIGATION OFFICER * Dominic Meraz RD - 07/05/2023 4:09 PM CSTAssociated Order(s): IP CONSULT TO NUTRITION SERVICES NUTRITION ASSESSMENT Nutrition Status: Patient meets criteria for severe chronic malnutrition, reference ASPEN guidelines. Present on Admission: Yes REASON FOR ASSESSMENT: Consult/Referral - At Risk MST Score Encounter Date: 07/05/23 4:22 PM Admission Date: 07/04/2023 LOS: 0 days HPI: Patient is a 33 y.o. male w/ PMH of TAA status post TEVAR on 06/05 ([place]), hypertension who presents today with a chief complaint of left lower abdominal pain, left flank pain. He was found to have L 3mm obstructing proximal ureteral stone. Now s/p left stent placement and stone extraction. Objective Past Medical History: Diagnosis Date Hypertension [...] Scheduled Meds: acetaminophen, 1,000 mg, oral, Q6H SUSAN amLODIPine, 10 mg, oral, Daily aspirin, 81 mg, oral, Daily carvediloL, 25 mg, oral, BID with meals (bkfst, dinner) cefepime, 1,000 mg, intravenous, Q12H SUSAN enoxaparin, 40 mg, subcutaneous, Daily-2100 gabapentin, 300 mg, oral, TID hydrALAZINE, 50 mg, oral, TID [Held by Provider] phenazopyridine, 200 mg, oral, TID with meals senna-docusate, 2 tablet, oral, BID sodium chloride 0.9%, 0.5-20 mL, intra-catheter, Q8H SUSAN tamsulosin, 0.4 mg, oral, Daily with dinner vancomycin, 15 mg/kg, intravenous, Q12H Continuous Infusions: Lactated Ringer's, 100 mL/hr, Last Rate: 100 mL/hr (07/05/23 1457) PRN Meds: albuterol HFA calcium carbonate sodium chloride 0.9% methocarbamoL ondansetron oxyBUTYnin oxyCODONE prochlorperazine ramelteon simethicone sodium chloride 0.9% Recent Labs Lab Units 07/04/23 1223 SODIUM mmol/L 137 POTASSIUM PLASMA mmol/L 4.2 CHLORIDE mmol/L 101 CO2 mmol/L 23 BUN SERUM mg/dL 18 CREATININE mg/dL 1.33* [id number] mL/min/1.73 m2 73 CALCIUM mg/dL 10.1 ALBUMIN g/dL 4.1 Recent Labs Lab Units 07/04/23 1223 GLUCOSE mg/dL 98 ALT Date Value Ref Range Status 07/04/2023 13 7 - 55 Units/L Final AST Date Value Ref Range Status 07/04/2023 13 10 - 50 Units/L Final Alk phos Date Value Ref Range Status 07/04/2023 105 40 - 130 Units/L Final Lipase Date Value Ref Range Status 07/04/2023 13 10 - 99 Units/L Final Lab Results Component Value Date TRIG 129 06/21/2023 NURSING ASSESSMENT: Last BM Date: 07/03/23 Emesis Assessment Emesis Color/Appearance: Yellow Toni Scale Score: 20 Type of Wound (LDA): Surgical site Vital Signs BP: 103/73 Temp: (!) 39.3 ??C (102.7 ??F) (MD aware) Pulse: 112 Resp: 14 SpO2: 99 % Intake/Output Summary (Last 24 hours) at 07/05/2023 1622 Last data filed at 07/05/2023 1605 Gross per 24 hour Intake 801 ml Output 280 ml Net 521 ml Adult Malnutrition Scoring Tool (MST) Have You Recently Lost Weight Without Trying?: Yes (Comment) How Much Weight Have You Lost?: 2 - 13 lb Have you been eating poorly because of a decreased appetite?: Yes Malnutrition Screening Tool (MST) Score: 2 Hunger Screen - Admission Within the past 12 months the food we bought just didn't last and we didn't have money to get more.: Never true Within the past 12 months we worried whether our food would run out before we got money to buy more.: Never true Anthropometrics Weight: 97.5 kg (215 lb) Admission Weight : 97.5 kg Weight Change: -1.27 kg (-2.81 lbs) IBW/kg (Calculated) : 72.6 kg Height: 175.3 cm (5' 9 ) Weight in (lb) to have BMI = 25: 168.9 BMI (Calculated): 31.7 Wt Readings from Last 10 Encounters: 07/04/23 97.5 kg (215 lb) 06/24/23 98.8 kg (217 lb 13 oz) 06/11/23 100.7 kg (222 lb 0.1 oz) 05/16/23 99.2 kg (218 lb 11.2 oz) 05/06/23 111.6 kg (246 lb 0.5 oz) ESTIMATED NEEDS: Total Kcal/kg Estimated Needs : 2438.08 Kcal/k. Type of Weight Used for Estimated Kcals: Current Total Protein Estimated Needs (gm): 87.12 Protein Needs Based on g/k.2 Type of Weight Used for Estimated Protein : [place] Fluid Needs Based on : 1 ml/kcal Dietary Orders (From admission, onward) Start Ordered 07/05/23 1453 Adult Diet Regular; Gatorade Diet effective now Comments: Please allow pt to order Gatorade as requested. Question Answer Comment ([facility]) Diet type Regular Other Services: Gatorade 07/05/23 1452 07/05/23 1453 Oral Nutrition Supplements ([facility]) Select Supplement: Thrive - Any Flavor; Quantity (# of cans): 1 can All Meals Question Answer Comment ([facility]) Select Supplement: Thrive - Any Flavor Quantity (# of cans): 1 can 07/05/23 1452 Allergies: Reviewed. IMPRESSION: RD consulted for nutrition assessment, MST 2. Pt and mother, Meron, present during visit. Pt endorses wt loss since 04/2023 d/t being in/out of the hospital, poor appetite, and occasional N/V w/ intake. Per EMR, noted previous wt (05/01/23) - 236#. Pt current wt (07/04/23) - 215#. This indicates a loss of 21# (8.9%) in ~2 months, significant for time frame. No adipose or muscle wasting noted. Pt meets ASPEN criteria for malnutrition at this time. Pt currently on regular diet - RD added order for Thrive ice cream and Gatorade. Pt ordered dinner meal of cheeseburger, herb potatoes, banana pudding, and Gatorade. He reports N/V in recent days, per documentation last episode of emesis on 07/04. Last BM SIDE SHOW ENTERTAINER. RD following. Wt Readings from Last 10 Encounters: 07/04/23 97.5 kg (215 lb) 06/24/23 98.8 kg (217 lb 13 oz) 06/11/23 100.7 kg (222 lb 0.1 oz) 05/16/23 99.2 kg (218 lb 11.2 oz) 05/06/23 111.6 kg (246 lb 0.5 oz) ASPEN MALNUTRITION ASSESSMENT: Date of completion: 07/05/23 ASPEN/AND Malnutrition Screening: Chronic illness or injury severe Energy Intake: < 75% energy intake compared to estimated energy needs > (or equal to) 1 month Weight Loss: > 7.5% in 3 months (loss of 21# (8.9%) in ~2 months) Patient Meets Criteria for Severe Malnutrition: Yes NUTRITION FOCUSED PHYSICAL EXAM: Completed, no signs of wasting noted. NUTRITION DIAGNOSIS: Nutrition Diagnosis 1: Protein-Calorie Malnutrition - Severe Related to: Pain, Vomiting, Nausea Evidenced by: Weight loss, Inadequate energy intake, Patient interview (loss of 21# (8.9%) in ~2 months) INTERVENTION(S): Summary: Assess for nutrition changes, Medical food supplement, Vitamin/mineral supplementation, Regular weights, Meals and snacks, Initial assessment, Follow up per policy Continue regular diet w/ Gatorade as medically able. Encouraged good PO intake of meals and snacks. Provide Thrive as requested. Discussed using nutrition supplements to help meet calorie and proteinneeds. Recommend MVI daily d/t nutrition status. Discussed consuming small, frequent meals and including a lean protein source with each meal/snack.Discussed importance of consuming adequate calories and protein to maintain body weight, facilitatehealing, and preserve LBM. Recommend obtaining regular scale weights as able to monitor trend. Monitor electrolytes, replete as needed. RD following. GOAL(S): Prevent further unintended weight loss during admission, Tolerance of medical food supplement by next assessment, Adequate nutrition to meet estimated needs by next assessment MONITORING/EVALUATION: Appetite, PO intake, Weight changes, Plan of care, Labs, I/O, Supplement tolerance, Electrolyte changes Dominic Meraz RD [phone] Nurse Leader-Weekend: [phone] STIGATION OFFICER * Dalton Vizcaino MD - 07/04/2023 5:15 PM CSTAssociated Order(s): IP CONSULT TO VASCULAR SURGERY Vascular Surgery Consult Note Admission Date: 07/04/2023 Eriberto Chau is a 33 y.o. male with chief complaint of TEVAR. HPI: Mr. Chau is a 33 y.o. 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 It is associated with nausea and emesis, no cp, fevers, or SOB. States that at a baseline he has normal low back pain, but now this new pain radiates to his abdomen and left flank. States that nothing has made the pain better at home including normal pain medications prompting presentation. He does endorse darker urine than usual. Regarding his TEVAR, patient was recently admitted 06/13-06/25 for impulse control in the CTICU For ongoing intermittent fevers, chills, night sweats. Patient ultimately was resuscitated in the hospital and was liberalized to q4hr nvcs with his final BP medications adjusted by cardiology. No issues with his lower extremities since discharge and has palpable pulses bilaterally at the DP and PT in the ER. Of note, CTA obtained in the ED did demonstrate slight interval increase in size of aneurysm with suggestion of filling of the false lumen. On discussion with team, do not believe this change ifsignificant is contributing to current clinical symptoms. Of note, states that he did have a history of kidney stones that were obstructed requiring intervention with stent placement. This last occurred over a decade ago. Past Medical History: Diagnosis Date Hypertension Kidney stones Past Surgical History: Procedure Laterality Date ABDOMINAL AORTIC ANEURYSM REPAIR HOME MEDICATIONS : acetaminophen 500 mg capsule albuterol HFA (PROVENTIL HFA,VENTOLIN HFA,PROAIR HFA) 90 mcg/actuation inhaler amLODIPine (NORVASC) 10 mg tablet aspirin 81 mg chewable tablet carvediloL (COREG) 12.5 mg tablet gabapentin (NEURONTIN) 300 mg capsule hydrALAZINE (APRESOLINE) 50 mg tablet lidocaine (ASPERCREME) 4 % adhesive patch,medicated methocarbamoL (ROBAXIN) 500 mg tablet ondansetron ODT (ZOFRAN-ODT) 4 mg disintegrating tablet QUEtiapine (SEROquel) 50 mg tablet senna-docusate (PERICOLACE) 8.6-50 mg tamsulosin (FLOMAX) 0.4 mg extended release capsule Allergies Allergen Reactions Lisinopril Angioedema Amoxicillin Hives Social History Tobacco Use Smoking status: Never Smokeless tobacco: Never Substance and Sexual Activity Drug use: Not Currently Sexual activity: None Alcohol Use: Not on file History reviewed. No pertinent family history. Review of Systems: Must be review of 10 systems Review of Systems Constitutional: Positive for activity change, appetite change and fatigue. Negative for fever. HENT: Negative. Eyes: Negative. Respiratory: Negative. Cardiovascular: Negative. Negative for chest pain. Gastrointestinal: Positive for abdominal pain. Negative for constipation. Endocrine: Negative. Genitourinary: Positive for difficulty urinating. States pee is darker than usual Musculoskeletal: Negative. Allergic/Immunologic: Negative. Neurological: Negative. Hematological: Negative. Psychiatric/Behavioral: Negative. Vitals: Arrival Vitals Temp 07/04/23 1139 36.9 ??C (98.5 ??F) Pulse 07/04/23 1139 83 Resp 07/04/23 1139 17 BP 07/04/23 1141 149/85 SpO2 07/04/23 1139 100 % Temp src -- Heart Rate Source 07/04/23 1230 Monitor Patient Position 07/04/23 1230 Lying BP Location 07/04/23 1230 Left arm FiO2 (%) -- Most Recent : Vitals: 07/04/23 1600 BP: 114/74 Pulse: 78 Resp: 13 Temp: SpO2: 94% Objective Physical exam: Must include at least two elements each from 9 organ systems for a comprehensive exam Physical Exam Constitutional: Appearance: He is well-developed. HENT: Head: Normocephalic. Mouth/Throat: Mouth: Mucous membranes are moist. Eyes: Extraocular Movements: Extraocular movements intact. Cardiovascular: Rate and Rhythm: Normal rate. Heart sounds: Normal heart sounds. Comments: Exam RLE: DP palp/PT palp LLE: DP palp/PT palp Pulmonary: Effort: Pulmonary effort is normal. Abdominal: General: Abdomen is flat and scaphoid. Bowel sounds are normal. Palpations: Abdomen is soft. Tenderness: There is generalized abdominal tenderness and tenderness in the left upper quadrant andleft lower quadrant. There is left CVA tenderness. Hernia: No hernia is present. Skin: General: Skin is warm. Capillary Refill: Capillary refill takes less than 2 seconds. Neurological: General: No focal deficit present. Mental Status: He is alert. Psychiatric: Mood and Affect: Mood normal. Lab/Radiology/Diagnostic Review: Lab results in the last 24 hours: Recent Results (from the past 24 hour(s)) CBC with auto differential Collection Time: 07/04/23 12:23 PM Result Value Ref Range WBC 10.9 (H) 3.8 - 9.9 K/cumm Hgb 9.7 (L) 13.0 - 17.5 g/dL Hct 31.1 (L) 38.9 - 50.3 % Plt 437 (H) 150 - 400 K/cumm MPV 9.2 9.1 - 12.3 fL RBC 3.52 (L) 4.30 - 5.80 M/cumm MCV 88.4 81.3 - 96.4 fL MCH 27.6 27.1 - 33.3 pg MCHC 31.2 (L) 32.3 - 35.7 g/dL RDW CV 13.7 11.1 - 14.9 % RDW SD 44.0 35.7 - 48.1 fL NRBC abs 0.00 0.00 - 0.01 K/cumm Comprehensive metabolic panel Collection Time: 07/04/23 12:23 PM Result Value Ref Range Sodium 137 135 - 145 mmol/L Potassium, pl 4.2 3.3 - 4.9 mmol/L Chloride 101 97 - 110 mmol/L CO2 23 22 - 32 mmol/L Anion gap 13 2 - 15 mmol/L BUN 18 6 - 25 mg/dL Creatinine 1.33 (H) 0.80 - 1.30 mg/dL Glucose 98 70 - 199 mg/dL Calcium 10.1 8.5 - 10.3 mg/dL Bilirubin, total 0.3 0.1 - 1.2 mg/dL Protein, pl 9.8 (H) 6.5 - 8.5 g/dL Albumin 4.1 3.5 - 5.0 g/dL Alk phos 105 40 - 130 Units/L ALT 13 7 - 55 Units/L AST 13 10 - 50 Units/L Lipase Collection Time: 07/04/23 12:23 PM Result Value Ref Range Lipase 13 10 - 99 Units/L Troponin I high-sensitivity series (baseline, 2hr, 4hr, 6hr) Collection Time: 07/04/23 12:23 PM Result Value Ref Range Trop I hs <4 <=35 ng/L Lactate Collection Time: 07/04/23 12:23 PM Result Value Ref Range Lactate 0.8 0.7 - 2.0 mmol/L Differential, auto Collection Time: 07/04/23 12:23 PM Result Value Ref Range Neutrophil abs 8.5 (H) 1.5 - 6.5 K/cumm Imm gran abs 0.1 0.0 - 0.1 K/cumm Lymphocyte abs 1.2 0.8 - 3.3 K/cumm Monocyte abs 1.0 (H) 0.2 - 0.8 K/cumm Eosinophil abs 0.1 0.0 - 0.5 K/cumm Basophil abs 0.1 0.0 - 0.1 K/cumm Neutrophil pct 78.0 % Imm gran pct 0.9 % Lymphocyte pct 10.9 % Monocyte pct 8.7 % Eosinophil pct 0.9 % Basophil pct 0.6 % eGFR Collection Time: 07/04/23 12:23 PM Result Value Ref Range eGFR 73 >=60 mL/min/1.73 m2 Creatine kinase (CK), total Collection Time: 07/04/23 12:23 PM Result Value Ref Range CK 55 40 - 300 Units/L Urinalysis reflex to microscopic Collection Time: 07/04/23 1:08 PM Result Value Ref Range Color, ur Tessa Yellow Clarity, ur Cloudy (A) Clear Specific gravity, ur 1.020 1.003 - 1.030 pH, urine 5.5 Protein, ur ql 1+ (A) Negative Glucose, ur ql Negative Negative Ketones, ur Negative Negative Bilirubin, ur Negative Negative Blood, ur 3+ (A) Negative Urobilinogen, ur <2.0 <2.0 mg/dL Nitrite, ur Negative Negative Leukocyte esterase, ur Negative Negative UA reflex comment Reflex to microscopic UA will be performed. Urinalysis, microscopic only Collection Time: 07/04/23 1:08 PM Result Value Ref Range WBC, ur 0-5 0 - 5 /HPF RBC, ur >50 (A) 0 - 2 /HPF Epithelial cells, squamous, ur 1-5 0 - 5 /HPF Bacteria, ur 1+ (A) Mucous, ur Present (A) Troponin I high-sensitivity 2-hour Collection Time: 07/04/23 2:19 PM Result Value Ref Range Trop I hs <4 <=35 ng/L Trop I hs delta 0 ng/L Trop I hs interp Insignificant , Chemistry CMP: Lab Results Component Value Date ALBUMIN 4.1 07/04/2023 BUNSER 18 07/04/2023 CALCIUM 10.1 07/04/2023 CO2 23 07/04/2023 CHLORIDE 101 07/04/2023 CREATININE 1.33 (H) 07/04/2023 GLUCOSE 98 07/04/2023 POTASSIUM 4.2 07/04/2023 SODIUM 137 07/04/2023 BILITOT 0.3 07/04/2023 PROT 9.8 (H) 07/04/2023 ALT 13 07/04/2023 AST 13 07/04/2023 ALKPHOS 105 07/04/2023 , CBC: Lab Results Component Value Date WBC 10.9 (H) 07/04/2023 RBC 3.52 (L) 07/04/2023 HGB 9.7 (L) 07/04/2023 HCT 31.1 (L) 07/04/2023 MCV 88.4 07/04/2023 MCH 27.6 07/04/2023 MCHC 31.2 (L) 07/04/2023 RDWCV 13.7 07/04/2023 RDWSD 44.0 07/04/2023 MPV 9.2 07/04/2023 NRBCABS 0.00 07/04/2023 , Coags: No results found for: PT , PTT , APTT , FFN , FIBRINOGEN , INR , ACTIVATEDCL , Lipids: No results found for: CHOL , CHLPL , HDL , LDLCALC , TRIG , CHOLHDL , Cardiac Enzymes: No results found for: CKTOTAL , CKMB , CKMBINDEX , TROPONINT and POC Glucose: Lab Results Component Value Date GLUCOSE 98 07/04/2023 CTA Chest Abdomen Pelvis Narrative: EXAMINATION: CT ANGIOGRAPHY OF THE CHEST, ABDOMEN AND PELVIS WITH AND WITHOUT CONTRAST HISTORY: 33-year-old male with history of aortic dissection status post thoracic endovascular aortic repair on 05/02/2023 with revision on 06/05/2023. Patient presenting with abdominal pain. TECHNIQUE: CT angiography of the chest, abdomen and pelvis was performed prior to and following the uneventful intravenous administration of 90 ml Optiray-350 using the post-endoluminal stent graft protocol. Vascular 3D images were generated on a dedicated workstation and also reviewed. 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 The proximal attachment site of the endovascular stent graft is just past the origin of the left common carotid artery. Vascular stent graft is noted within the left subclavian artery. The distal attachment site of the stent graft is within the infrarenal abdominal aorta. This is similar in appearance compared to prior examination. The distal most aspect of the dissection extends into the left common iliac artery which is unchanged There continues to be filling of the false lumen which is similar compared to prior examination. The inferior most aspect of this filling may be related to an apparent fenestration within the dissection flap in the left common iliac artery. The maximum caliber of the descending thoracic aorta appears to be increase in size compared to 06/13/2023 The right renal artery appears to arise from the true lumen. The superior mesenteric artery and celiac artery arise from the false lumen. The left renal artery origin is difficult to assess but may arise from the false lumen. The inferior mesenteric artery arises from the true lumen. Redemonstrated focal outpouching along the left common femoral artery is seen at series 5, image 654 which measures 7 mm, previously 4 mm NON-VASCULAR FINDINGS: Chest: Thyroid gland is normal. No suspicious lymphadenopathy in the pelvis. Calcified left hilar lymph nodes are noted. Heart size is normal. There is no pericardial effusion. Calcified granuloma in the left lower lobe. Atelectasis in the bases. There is faint groundglass within the right middle lobe which may represent sequela of inflammatory process is unchanged from 06/13/2023. Pneumothorax or pleural effusion. Abdomen/Pelvis: Small probable hemangioma within segment 8 is unchanged. Bladder is normal. Pancreas is normal. Sequela of old granulomatous disease in the spleen. Multiple bilateral renal stones are noted, largest measuring 4 mm in the upper pole the right kidney.. There is 3 mm an obstructing stone in the proximal left ureter, best seen at series 5, image 473 with mild upstream hydronephrosis. The bladder is normal. Unchanged hypoattenuating lesion in the upper pole the right kidney favored represent a renal cyst. The large bowel is normal in course and caliber. The appendix is normal. Small bowel is normal in course and caliber. No suspicious of adenopathy in the abdomen or pelvis. No suspicious osseous lesion. Impression: 1. 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 There is been interval slight increase in size of the aneurysm and caliber of the descending thoracic aorta which may be related to persistent filling of the false lumen. No evidence of stent migration 2. Obstructing stone in the proximal left ureter with resultant mild left hydronephrosis which may account for patient's reported abdominal pain.] Note, given numerous small bilateral renal stones, consider metabolic workup for further evaluation. 3. Slight increase in size of a focal outpouching along the left common femoral artery which may represent a small left common femoral artery pseudoaneurysm versus increased opacification within a vascular access device. The Non Critical results were discussed with Jonathan Borja MD by Dr. Devyn Dooley on 07/04/2023 at 2:46 PM Dictated by: Nigel Dooley M.D. The radiology attending physician has personally reviewed this study, and had reviewed and/or edited this written report and agrees with it. Electronically signed by: Katy Llamas M.D. XR Chest 1 Vw Portable Narrative: EXAMINATION: 1 view chest radiograph Impression: Comparison 06/16/2023 Thoracic endovascular stent grafting redemonstrated No new focal consolidation, pneumothorax, or pleural effusion. Stable cardiomediastinal silhouette. Electronically signed by: Shahrzad Zimmerman M.D. ECG 12 lead Rosey Posada MD 07/04/2023 11:55 AM ECG 12 lead Date/Time: 07/04/2023 11:53 AM Performed by: Rosey Posada MD Authorized by: Guille Navarro MD Rate: ECG rate: 76 ECG rate assessment: normal Rhythm: Rhythm: sinus rhythm Ectopy: Ectopy: none QRS: QRS axis: Normal QRS intervals: Normal Conduction: Conduction: normal ST segments: ST segments: Normal T waves: T waves: flattening and inverted Flattening: II Inverted: III, aVF, V6 and V5 Other findings: Other findings: LVH Previous ECG: Previous ECG: Compared to current Date of previous EC07/02/2023 Interpretation: Interpretation: No significant change Recommended Follow-up: Recommended follow up: further workup in the ED Principal Problem: Ureteral stone Assessment /Plan No new Assessment & Plan notes have been filed under this hospital service since the last note was generated. Service: Vascular Surgery Mr. Chau is a 33 y.o. male with PMHx of HTN, chronic abdominal pain, mood disorder, and type B aortic dissection s/p TBE 05/02/23 that was complicated by transient LE paralysis and TEVAR 06/05/2023 who presents with left lower abdominal pain that started this morning with CTA CAP findings suggestive of obstructing 3mm left ureteral stone with subsequent removal with Urology 07/04/2023 and placementof stent. - Continue to follow vascular exam - Appreciate recommendations and care of general urology team - Of note, CTA obtained in the ED did demonstrate slight interval increase in size of aneurysm withsuggestion of filling of the false lumen. On discussion with team, do not believe this change is contributing to current clinical symptoms. Dalton Vizcaino MD Department of Surgery, PGY-2 [facility] in [place]/[facility] Please use [email or web address] to find phone number Cosigned by Nikhil Samuel MD at 07/18/2023 11:02 AM INVESTIGATION OFFICER STIGATION OFFICER STIGATION OFFICER * File, Paris Esquivel NP - 07/04/2023 3:13 PM CSTAssociated Order(s): IP CONSULT TO UROLOGY Images from the original note were not included. Urology Consult Note Subjective Chief Complaint:L flank pain Requesting provider: Jonathan Borja History of Present Illness: Eriberto Chau is a 33 y.o. 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 (Lizzie), hypertension who presents today with a chief complaint of left lower abdominal pain, left flank pain. He was found to have L 3mm obstructing proximal ureteral stone for which urology consulted. Patient has chronic lower back pain as well as increase in chronic back pain since his aneurysm repair. His pain worsened on 07/02 prompting an ER visit but he was discharged after work up unremarkable. Pain became severe again this morning and has now moved to LLQ with nausea. Pain minimally improved with IV pain meds. CT scan with 3mm obstructing stone L proximal ureter with mild hydronephrosis as well as other bilateral non obstructing stones with largest 4mm in upper pole R kidney. Also with slight increase in size of aneurysm. He does have an ANGI with Cr 1.33, WBC 10.9 but UA negative for infection. Afebrile but hypertensive. He does have a history of kidney stones that have obstructed requiring intervention with stent placement, last > 10 years ago. His mother reports during his last admission for aneurysm revision that he was placed on flomax for difficulty with urination and has been taking this up until today. The patient's past medical, surgical, were reviewed and noncontributory to this illness/condition except as noted below: The patient's past medical history is notable for: Past Medical History: Diagnosis Date Hypertension Kidney stones The patient's past surgical history is notable for: Past Surgical History: Procedure Laterality Date ABDOMINAL AORTIC ANEURYSM REPAIR Review of systems negative other than what is stated in the HPI. Objective In/Outs: No intake/output data recorded. I/O this shift: In: - Out: 325 [Urine:325] Physical Exam: Vitals: 07/04/23 1141 07/04/23 1230 07/04/23 1305 07/04/23 1330 BP: 149/85 120/96 154/97 128/87 BP Location: Left arm Patient Position: Lying Pulse: 82 87 92 Resp: 11 15 18 Temp: SpO2: 98% 100% 93% Weight: 97.5 kg (215 lb) Height: 175.3 cm (5' 9 ) General: In mild distress due to pain Pulmonary: Non-labored breathing Cardiovascular: Well perfused Abdomen: soft, LLQ tenderness : voiding spontaneously, dark yellow urine. + L CVA tenderness Neuro: Alert and oriented Psych: Appropriate and cooperative Labs/Imaging: Chem/LFT Lab History Latest Ref Rng & Units 06/21/2023 04:01 06/22/2023 01:09 06/23/2023 07/04/2023 12:23 Labs-Chem/LFT Sodium 135 - 145 mmol/L 135 137 137 137 Creatinine 0.80 - 1.30 mg/dL 0.87 0.85 1.05 1.33 Bilirubin, total 0.1 - 1.2 mg/dL 0.3 0.3 AST 10 - 50 Units/L 11 13 ALT 7 - 55 Units/L 10 13 Alk phos 40 - 130 Units/L 90 105 CrCl- Actual Body Weight (Cockcroft-Gault) 171.1 175.1 141.7 111 Details More values are hidden. Newest values shown. Go to activity for more data. Hematology Lab History Latest Ref Rng & Units 06/21/2023 06/22/2023 01:09 06/23/2023 07/04/2023 12:23 Labs - Hematology WBC 3.8 - 9.9 K/cumm 7.3 8.5 10.3 10.9 Total Hb, POC 13.0 - 17.5 g/dL 9.8 9.6 9.3 9.7 Hct 38.9 - 50.3 % 30.7 29.8 29.3 31.1 Plt 150 - 400 K/cumm 477 454 389 437 Neutrophil abs 1.5 - 6.5 K/cumm 8.5 Lymphocytes, abs 0.8 - 3.3 K/cumm 1.2 Details More abnormal values are hidden. Newest values shown. Go to activity for more data. More values are hidden. Newest values shown. Go to activity for more data. The following images were personally reviewed by me. Narrative & Impression EXAMINATION: CT ANGIOGRAPHY OF THE CHEST, ABDOMEN AND PELVIS WITH AND WITHOUT CONTRAST HISTORY: 33-year-old male with history of aortic dissection status post thoracic endovascular aortic repair on 05/02/2023 with revision on 06/05/2023. Patient presenting with abdominal pain. TECHNIQUE: CT angiography of the chest, abdomen and pelvis was performed prior to and following the uneventful intravenous administration of 90 ml Optiray-350 using the post-endoluminal stent graft protocol. Vascular 3D images were generated on a dedicated workstation and also reviewed. 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 The proximal attachment site of the endovascular stent graft is just past the origin of the left common carotid artery. Vascular stent graft is noted within the left subclavian artery. The distal attachment site of the stent graft is within the infrarenal abdominal aorta. This is similar in appearance compared to prior examination. The distal most aspect of the dissection extends into the left common iliac artery which is unchanged There continues to be filling of the false lumen which is similar compared to prior examination. The inferior most aspect of this filling may be related to an apparent fenestration within the dissection flap in the left common iliac artery. The maximum caliber of the descending thoracic aorta appears to be increase in size compared to 06/13/2023 The right renal artery appears to arise from the true lumen. The superior mesenteric artery and celiac artery arise from the false lumen. The left renal artery origin is difficult to assess but may arise from the false lumen. The inferior mesenteric artery arises from the true lumen. Redemonstrated focal outpouching along the left common femoral artery is seen at series 5, image 654 which measures 7 mm, previously 4 mm NON-VASCULAR FINDINGS: Chest: Thyroid gland is normal. No suspicious lymphadenopathy in the pelvis. Calcified left hilar lymph nodes are noted. Heart size is normal. There is no pericardial effusion. Calcified granuloma in the left lower lobe. Atelectasis in the bases. There is faint groundglass within the right middle lobe which may represent sequela of inflammatory process is unchanged from 06/13/2023. Pneumothorax or pleural effusion. Abdomen/Pelvis: Small probable hemangioma within segment 8 is unchanged. Bladder is normal. Pancreas is normal. Sequela of old granulomatous disease in the spleen. Multiple bilateral renal stones are noted, largest measuring 4 mm in the upper pole the right kidney.. There is 3 mm an obstructing stone in the proximal left ureter, best seen at series 5, image 473 with mild upstream hydronephrosis. The bladder is normal. Unchanged hypoattenuating lesion in the upper pole the right kidney favored represent a renal cyst. The large bowel is normal in course and caliber. The appendix is normal. Small bowel is normal in course and caliber. No suspicious of adenopathy in the abdomen or pelvis. No suspicious osseous lesion. IMPRESSION: 1. 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 There is been interval slight increase in size of the aneurysm and caliber of the descending thoracic aorta which may be related to persistent filling of the false lumen. No evidence of stent migration 2. Obstructing stone in the proximal left ureter with resultant mild left hydronephrosis which may account for patient's reported abdominal pain.] Note, given numerous small bilateral renal stones, consider metabolic workup for further evaluation. 3. Slight increase in size of a focal outpouching along the left common femoral artery which may represent a small left common femoral artery pseudoaneurysm versus increased opacification within a vascular access device. The Non Critical results were discussed with Jonathan Borja MD by Dr. Devyn Dooley on 07/04/2023 at 2:46 PM Dictated by: Nigel Dooley M.D. The radiology attending physician has personally reviewed this study, and had reviewed and/or edited this written report and agrees with it. Electronically signed by: Katy Llamas M.D. Assessment Eriberto Chau is a 33 y.o. 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 (Droz), hypertension who presents today with a chief complaint of left lower abdominal pain, left flank pain. He was found to have L 3mm obstructing proximal ureteral stone with mild hydronephrosis, ANGI of 1.33 and WBC 10.9. Very tender to gentle palpation of L flank and abdomen. I discussed MET vs surgical intervention. Patient has already failed MET as he has been on flomax for several weeks for unrelated issue. He is still having severe pain despite IV pain meds, continues to be nauseous. He will need to be admitted for pain control, possible urologic intervention as well as needs further evaluation for CT findings regarding his aneurysm. Plan -Strain urine -Keep NPO -Pain control -Will discuss need for intervention with urology team -Urology to follow Thank you for allowing us to participate in the care of this patient. For any questions or concerns, please page Urology through the planishing press operator. Paris Villalpando NP 07/04/2023 Cosigned by Marcus Gamboa MD at 07/04/2023 6:50 PM INVESTIGATION OFFICER STIGATION OFFICER STIGATION OFFICER documented in this encounter Nursing Notes * Mariposa Harris RN - 07/08/2023 3:00 PM CST Patient discharged to home with mother. IV removed, meds received from mobile pharmacy, and discharge paperwork given and reviewed with patient. STIGATION OFFICER * Alicia Good RN - 07/07/2023 7:48 PM CST Pt. Is A&OX4, continue to complain of pain, had scheduled and PRN pain meds multiple times 9 oxy, dialudid), contd. On IVF, ambulated well with walker, eating meals good, was nauseated little in the morning, got some zofran, but has been better through the day STIGATION OFFICER * Idalia Travis RN - 07/06/2023 8:03 AM CST Pt returned to room [address], BP 140/68 STIGATION OFFICER * Sherri Negrete RN - 07/05/2023 4:35 AM CST Patient has had no urine output overnight. Bladder scan shows 160 in bladder. Resident and charge nurse notified. 0445: Dr Navid Barrientos said to increase the LR rate to 100 and recheck in an hour. At [address] Barrientos to update the LR order. At 0456 Dr. Barrientos updated the LR order STIGATION OFFICER STIGATION OFFICER documented in this encounter ED Notes * Jonathan Borja MD - 07/04/2023 2:23 PM CST HPI Chief Complaint Patient presents with Abdominal Pain Pt to ED with lower left ABD pain this morning around 0900. Pt states he has chronic lower back pain but now the pain radiates to his ABD. Hx of HTN, AAA post TEVAR on 06/05 and kidney stones. HPI This is a 33-year-old 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 (Lizzie), hypertension who presents today with a chief complaint of left lower abdominal pain, left flank pain. Reports onset of worsening pain this morning. Has been struggling with abdominal, back pain over multiple months and also had an ED visit on 07/02 with a reassuring workup. He denies any dysuria but does note some discolored urine. Denies any fevers, chills. Does endorse nausea, vomiting which is clear, nonbloody, nonbilious. No chest pain or shortness of breath Patient History: Patient Active Problem List Diagnosis Date Noted Ureteral stone 07/04/2023 Left flank pain 07/04/2023 Chronic back pain 06/24/2023 Pseudoaneurysm following procedure ([facility]) ([facility]) 06/24/2023 Infrarenal abdominal aortic aneurysm, without rupture ([facility]) 06/13/2023 Polysubstance abuse ([facility]) ([facility]) 06/10/2023 Moderate malnutrition ([facility]) ([facility]) 06/09/2023 Dissection of abdominal aorta ([facility]) ([facility]) 06/03/2023 Urinary retention 05/16/2023 Epistaxis 05/13/2023 Pneumonia 05/13/2023 HTN (hypertension) 05/13/2023 Dissection of thoracoabdominal aorta ([facility]) ([facility]) 05/02/2023 Dissection of aorta, unspecified portion of aorta ([facility]) 05/01/2023 Past Medical History: Diagnosis Date Hypertension Kidney stones Past Surgical History: Procedure Laterality Date ABDOMINAL AORTIC ANEURYSM REPAIR History reviewed. No pertinent family history. Social History Tobacco Use Smoking status: Never Smokeless tobacco: Never Substance and Sexual Activity Alcohol use: Not Currently Drug use: Not Currently Sexual activity: None Social History Social History Narrative Not on file Review of Systems Review of Systems Negative except as per HPI. Physical Exam ED Triage Vitals Temp Pulse Resp BP SpO2 07/04/23 1139 07/04/23 1139 07/04/23 1139 07/04/23 1141 07/04/23 1139 36.9 ??C (98.5 ??F) 83 17 149/85 100 % Temp src Heart Rate Source Patient Position BP Location FiO2 (%) 07/04/23 1846 07/04/23 1230 07/04/23 1230 07/04/23 1230 -- Temporal Monitor Lying Left arm Height Height Method Weight Weight Method 07/04/23 1141 -- 07/04/23 1141 -- 1.753 m (5' 9 ) 97.5 kg (215 lb) Physical Exam General: Ill-appearing, awake, answering questions appropriately. Head and neck: normocephalic, atraumatic, no C spine TTP or decreased ROM Eyes: EOMI, PERRL Oropharynx: no pharyngeal erythema, tonsillar exudates Cardiac: Tachycardic, regular, warm extremities. Pulmonary: Clear breath sounds bilaterally, no respiratory distress GI: Soft, moderate left lower quadrant abdominal pain palpation, left flank tenderness. Musculoskeletal: No obvious deformities or TTP Skin: No rashes, lesions, lacerations noted. No bruising Neurological: CN 2-12 intact. Normal motor function in bilateral UE and bilateral LE. Sensation grossly intact. Psychiatric: appropriate mood and affect MDM Medical Decision Making Amount and/or Complexity of Data Reviewed Labs: ordered. Radiology: ordered. ECG/medicine tests: ordered and independent interpretation performed. Risk Prescription drug management. Decision regarding hospitalization. This is a 33-year-old 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 (Maxim), hypertension who presents today with a chief complaint of left lower abdominal pain, left flank pain. Vitals on arrival are within normal limits and he was nontoxic but in significant distress secondary to pain. Concern for dissection complication, will need to reimage repair to ensure no postsurgical issue. Possible intra-abdominal infection, perforation, ischemia. Will also assess for nephrolithiasis or urinary obstruction. UA clean but has blood, possible stone. Less likely cardiac process. Low likelihood rhabdomyolysis. Plan to re-evaluate pain after CT imaging. Attending Summary of Care ED Course as of 07/05/23 1609 Time: 07/04 1444 Comment: Spoke to radiology, 3 mm prox ureter stone. Slight increase in aortic size, unlikely to explain symptoms. By: Jonathan Borja MD Time: 07/04 1453 Comment: IMPRESSION: 1. 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 There is been interval slight increase in size of the aneurysm and caliber of the descending thoracic aorta which may be related to persistent filling of the false lumen. No evidence of stent migration 2. Obstructing stone in the proximal left ureter with resultant mild left hydronephrosis which may account for patient's reported abdominal pain.] Note, given numerous small bilateral renal stones, consider metabolic workup for further evaluation. 3. Slight increase in size of a focal outpouching along the left common femoral artery which may represent a small left common femoral artery pseudoaneurysm versus increased opacification within a vascular access device. By: Jonathan Borja MD Time: 07/04 1456 Comment: Spoke to urology they will come see him. By: Jonathan Borja MD Time: 07/04 1500 Comment: Attending sign out: 33 M with obstructing nephrolithiasis, urology to see, likely admit for pain control. Also recent Type B dissection, vascular to evaluate By: Chelle Elliott MD Time: 07/04 1500 Comment: TRANSITION OF CARE: Dispo: admit Pending: workup, urology consult Summary: 33 y.o. male here with flank pain and obstructing renal stone. Slight increase of previousdissection. Pending vascular. Admit pending urology. I, Ney Acosta MD, am taking signout and assuming care of this patient from the previous physician. Final diagnoses: Left flank pain Ureteral stone By: Ney Acosta MD Time: 07/04 1526 Comment: Spoke with Urology, they think the patient would likely require admission for stent placement. Still pending vascular surgery evaluation. Unclear who the patient will be admitted to yet. By: Ney Acosta MD Time: 07/04 1622 Comment: Urology will take to the OR this afternoon. Still pending vascular eval, will send repeat page By: Ney Acosta MD Left flank pain Ureteral stone Jonathan Borja MD Resident 07/04/23 1606 Jonathan Borja MD Resident 07/05/23 1609 Cosigned by Nagi Landa MD at 07/07/2023 9:57 AM INVESTIGATION OFFICER STIGATION OFFICER STIGATION OFFICER STIGATION OFFICER Associated attestation - Nagi Landa MD - 07/07/2023 9:57 AM INVESTIGATION OFFICER I have seen and examined the patient on 07/04/2023. I agree with the findings and plan of care as documented in the resident's note. * Essie Cuevas RN - 07/04/2023 12:12 PM CST Bed: [facility] Expected date: Expected time: Means of arrival: Comments: Triage pt Essie Cuevas RN 07/04/23 1212 STIGATION OFFICER * Tami Díaz RN - 07/04/2023 11:35 AM CST Pt to ED with lower left ABD pain this morning around 0900. Pt states he has chronic lower back pain but now the pain radiates to his ABD. Hx of HTN, AAA post TEVAR on 06/05 and kidney stones. STIGATION OFFICER documented in this encounter Miscellaneous Notes * Provider Query - Gisele Courtney NP - 07/08/2023 3:00 PM CST Specify the significance of the abnormal BMI (body mass index) and document in the medical record and on the form below. Elevated BMI _X__Obesity POA ___Other, specify below Additional Provider Response: Clinical Indicators/Treatments: Height: 175.3 cm (5' 9 ) as of 07/04/2023 -- -- -- Weight: 97.5 kg (215 lb) as of 07/04/2023 -- -- -- [place] Weight: 70.7 kg (155 lb 13.8 oz) 175.3 cm (5' 9 ) as of 07/04/2023 Body Mass Index: 31.75 kg/m?? Abnormal References: From the ICD-10-CM Official Guidelines for Coding and Reporting, use of terms such as likely, suspected, possible, or probable (associated with a specific diagnosis that is being evaluated, monitored, or treated as if it exists) are acceptable and can be coded in the inpatient setting when documented at the time of discharge. BMI definitions per www.NHLBI.nih.gov BMI Weight Status <18.5 Underweight 18.5 to 24.9 Normal/Healthy 25 to 29.9 Overweight 30 to 39.9 Obesity >40 Extreme Obesity (Morbid) This documentation will become part of the patient???s medical record. Respectfully Lon HAMMER RN CCDS [email or web address] [phone] STIGATION OFFICER * Provider Query - Gisele Courtney NP - 07/08/2023 3:00 PM CST Specify a diagnosis that reflects the patient???s nutritional status, and document in the medical record and on the form below. _X__ Severe Malnutrition POA ___ Other, specify below Additional Provider Response: Clinical Indicators/Treatments: -33 y.o. 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 (Lizzie), hypertension who presents today with a chief complaint of left lower abdominal pain, left flank pain - Consult 07/04/23(File) Dietitian assessment 07/05/23 (Mariya) states: Patient meets criteria for severe Malnutrition based on ???ASPEN/AND Malnutrition Screening: Chronic illness or injury severe Energy Intake: < 75% energy intake compared to estimated energy needs > (or equal to) 1 month Weight Loss: > 7.5% in 3 months (loss of 21# (8.9%) in 2 months) Per EMR, noted previous wt (05/01/23) - 236#. Pt current wt (07/04/23) - 215#. This indicates a loss of 21# (8.9%) in 2 months, significant for time frame Pt endorses wt loss since 04/2023 d/t being in/out of the hospital, poor appetite, and occasional N/V w/ intake Nutrition Diagnosis 1: Protein-Calorie Malnutrition - Severe Related to: Pain, Vomiting, Nausea Evidenced by: Weight loss, Inadequate energy intake, Patient interview Monitoring/TX: -RD assess. 07/05/23 (Mariya): Intervention(s): Assess for nutrition changes, Medical food supplement, Vitamin/mineral supplementation, Regular weights, Meals and snacks, Initial assessment, Follow up per policy Goal(s): Prevent further unintended weight loss during admission, Tolerance of medical food supplement by next assessment, Adequate nutrition to meet estimated needs by next assessment Monitoring/Evaluation: Appetite, PO intake, Weight changes, Plan of care, Labs, I/O, Supplement tolerance, Electrolyte changes References: Adult Malnutrition Screening Criteria Criteria for Moderate and Severe Malnutrition: Minimum of 2 of 6 characteristics recommended Characteristics Malnutrition in the Context of ACUTE Illness or Injury < 3 months Malnutrition in the Context of CHRONIC Illness or Injury > 3 months Malnutrition in the Context of Social or Environmental Circumstances Moderate Malnutrition Severe Malnutrition Moderate Malnutrition Severe Malnutrition Moderate Malnutrition Severe Malnutrition 1: Energy intake (as a % of estimated energy requirements) < 75% of estimated energy requirement for >7 days <= 50% of estimated energy requirement for >= 5 days < 75% of estimated energy requirement for >= 1 month <= 75% of estimated energy requirement for >= 1 month < 75% of estimated energy requirement for >= 3 months <= 50% of estimated energy requirement for >= 1 month 2: Weight loss (as a % of weight lost from baseline) 1-2% in 1 wk 5% in 1 mo 7.5% in 3 mo >2% in 1 wk >5% in 1 mo >7.5% in 3 mo 5% in 1 mo 7.5% in 3 mo 10% in 6 mo 20% in 1 yr >5% in 1 mo >7.5% in 3 mo >10% in 6 mo >20% in 1 yr 5% in 1 mo 7.5% in 3 mo 10% in 6 mo 20% in 1 yr >5% in 1 mo >7.5% in 3 mo >10% in 6 mo >20% in 1 yr Physical Findings of 3: Loss of body fat 4: Loss of muscle mass or 5: Fluid accumulation Mild Findings: ? sub q fat ? muscle ? fluid/edema Moderate Findings: ? sub q fat ? muscle ? fluid/edema Mild Findings: ? sub q fat ? muscle ? fluid/edema Severe Findings: ? sub q fat ? muscle ? fluid/edema Mild Findings: ? sub q fat ? muscle ? fluid/edema Severe Findings: ? sub q fat ? muscle ? fluid/edema 6: Reduced Delicatessen Manager Strength n/a Measurably reduced per device standards n/a Measurably reduced per device standards n/a Measurably reduced per device standards Note: Mild Malnutrition has not been defined by ASPEN. Mild malnutrition is a subjective assessmentwith characteristics of malnutrition greater than ???none?? but less than ???moderate.?? Mild malnutrition could be defined as one characteristic outlined above with the established moderate or severe parameters. From the ICD-10-CM Coding Guidelines, use of terms such as likely, suspected, possible, or probable(associated with a specific diagnosis that is being evaluated, monitored, or treated as if it exists) are acceptable and can be coded in the inpatient setting when documented at the time of discharge. This documentation will become part of the patient???s medical record. Respectfully Lon HAMMER RN CCDS [email or web address] [phone] STIGATION OFFICER * Plan of Care - Mariposa Harris RN - 07/08/2023 1:51 PM CST Problem: Health Behavior: Goal: Understanding of discharge needs will improve Outcome: Adequate for Discharge Problem: Lack of Knowledge: Goal: Ability to develop a pain control plan will improve Outcome: Adequate for Discharge Goal: Ability to identify pain intensity on a pain scale and rate it consistently will improve Outcome: Adequate for Discharge Goal: Ability to notify healthcare provider of pain before it becomes unmanageable or unbearable will improve Outcome: Adequate for Discharge Problem: Medication: Goal: Satisfaction with pain management regimen will improve Outcome: Adequate for Discharge Problem: Sensory: Goal: Ability to identify factors that increase the pain will improve Outcome: Adequate for Discharge Goal: Pain level will decrease Outcome: Adequate for Discharge Problem: Activity: Goal: Ability to return to normal activity level will improve Outcome: Adequate for Discharge Problem: Lack of Knowledge: Goal: Knowledge of the prescribed therapeutic regimen will improve Outcome: Adequate for Discharge Problem: Coping: Goal: Ability to cope will improve Outcome: Adequate for Discharge Problem: Health Behavior: Goal: Identification of resources available to assist in meeting health care needs will improve Outcome: Adequate for Discharge Problem: Sensory: Goal: Pain level will decrease Outcome: Adequate for Discharge Goals: Clinical Goals for the Shift: vital signs, medications, pain control, safety Summary: Patient ready for discharge. STIGATION OFFICER * Plan of Care - Anabel Taylor RN - 07/08/2023 1:24 PM CST Per Medical Chart/Rounds/IDR: 33 year old male with a past medical history of TAA status post TEVARon 06/05, hypertension who presented to the hospital with a chief complaint of left lower abdominal pain, left flank pain. He was found to have L 3mm obstructing proximal ureteral stone. IDR: saline lock IV ADD: 07/08 Plan/referrals made/in place: Patient to discharge home with the support of their family once medically ready. No home health needs have been identified at this time. Case Management will continue to follow for discharge needs. Support following discharge: meron blankenship Mother [phone]; Solange Ireland [phone]; Geri Alejandre Partner [phone] Transportation: per mother F/U Appointments: to be arranged by the medical team prior to discharge Plan for weekend discharge: No identified CM needs at this time For weekend assistance, please check the treatment team in Epic for the assigned behavioral health case manager or contact the weekend Case Management phone STIGATION OFFICER * Plan of Care - Navin Ventura RN - 07/07/2023 11:49 PM CST Problem: Health Behavior: Goal: Understanding of discharge needs will improve Outcome: Progressing Problem: Lack of Knowledge: Goal: Ability to develop a pain control plan will improve Outcome: Progressing Goal: Ability to identify pain intensity on a pain scale and rate it consistently will improve Outcome: Progressing Goal: Ability to notify healthcare provider of pain before it becomes unmanageable or unbearable will improve Outcome: Progressing Problem: Medication: Goal: Satisfaction with pain management regimen will improve Outcome: Progressing Goals: Clinical Goals for the Shift: monitor pain, spasm, I/O, vitals Summary: STIGATION OFFICER * Plan of Care - Harriett Ordonez - 07/07/2023 7:14 AM CST Goals: Clinical Goals for the Shift: orient patient to floor, monitor vitals and I&O's, pain management, ambulation Summary: Problem: Medication: Goal: Satisfaction with pain management regimen will improve Outcome: Not Progressing Problem: Sensory: Goal: Ability to identify factors that increase the pain will improve Outcome: Not Progressing Problem: Activity: Goal: Ability to return to normal activity level will improve Outcome: Not Progressing STIGATION OFFICER * Plan of Care - Genevieve Ng LCSW - 07/06/2023 3:25 PM CST SW consulted due to patient being a 35% readmission risk, and this being patient's 5th inpatient admission. Patient was seen last admission by SW and SW assessment was completed on 06/15/2023. Patient's mother, Meron Blankenship ([phone]) was present at bedside at time of visit. SW discussed [facility] referrals that were sent last admission and patient's mom explained that she would have to follow up with patient's girlfriend to get an update on what the status was on financial assistance through referrals sent. SW was informed that patient has been unable to work and currently does not have an income due to disability benefits running out so any finaicial resources would be useful. SW to follow up on sent referral and send additional [facility] referrals as necessary. Patient's mother inquired about possible anxiety medication to assist patient as well as PT/OT. SW updated medical team. Patient/family also request spiritual care, specifically Father Timmy. SW placed spiritual care order. SW to continue to follow. Genevieve Ng LCSW [phone] Predictive Model Details 35% (High Risk) Factor Value Calculated 07/06/2023 12:07 20% Number of active inpatient medication orders 43 Risk of Unplanned Readmission Model 19% Number of ED visits in last six months 5 14% Diagnosis of drug abuse present 10% Number of hospitalizations in last year 3 6% Active antipsychotic inpatient medication order present 6% ECG/EKG order present in last 6 months 5% Encounter of ten days or longer in last year present 5% Imaging order present in last 6 months 4% Latest hemoglobin low (7.9 g/dL) 3% Active anticoagulant inpatient medication order present 3% Latest creatinine high (1.43 mg/dL) 2% Age 33 1% Future appointment scheduled 1% Charlson Comorbidity Index 1 1% Active ulcer inpatient medication order present 1% Current length of stay 0.942 days STIGATION OFFICER * Initial Assessments - Anabel Taylor RN - 07/06/2023 2:43 PM INVESTIGATION OFFICER CM Initial Assessment Interview Note Information Obtained From: Other (Specify) Name: Mother at bedside. Patient is jr (07/06/23 1440) Admission Source: Home Impression: 33 year old 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, hypertension who presented to the hospital with a chief complaint of left lower abdominal pain, left flank pain. He was found to have L 3mm obstructing proximal ureteral stone. Plan Includes: Patient to discharge home with the support of their family once medically ready. No home health needs have been identified at this time. Case Management will continue to follow for discharge needs. Primary Source of Transportation: Does the patient need discharge transport arranged?: No (per mother) (07/06/23 1440) Health Insurance Coverage: [employer] Medicaid Prescription Coverage: yes Pharmacy: [facility]/pharmacy #[id number] - [place], [place] - [address] [facility] [address] [id number] - [place], [place] - [address] [facility] [phone] -verified [facility] Primary Care Provider: Carl Strickland MD -new patient appointment Jul 13, 2023 Prior to Admission: Functional Status: Independent with ADLs Primary Caregiver: Self Support System: Spouse/Significant Other, Family members (meron blankenship Mother [phone]; Solange Ireland [phone]; Geri Alejandre Partner [phone]) Home Care Services: No Outpatient Services: No Durable Medical Equipment: Walker (wheeled), Rollator, Wheelchair ramp Living Arrangements: Spouse/significant other, Children (fiance and 7 children) Type of Residence: Private residence Steps in home?: Yes, Outside of home Number of steps outside: 5 steps Medication management: Independent (07/06/231439) Potential discharge needs include: Home Health: None (07/06/231439) Dialysis: NA Behavioral Health Services: Patient expects to be Discharged to: Private residence, (07/06/231439) Additional Information: Patient lives in a private residence with fiance and 7 children. Address and phone number verified with face sheet. Independent with ADLs at baseline. Denies home health priorto admission. Role of CM explained. Patient's Identified Problem/Goal Problem: Ensure acute [...] Collaboration with patient, MD, direct care nurse, Chemical Educator, and other members of the health care team to assure needed interventions completed. 2. Return patient to optimal level of self-care post discharge. 3. Hot Mill Roller will follow for Discharge Planning - interventions as needed 4. Anticipated level of care at discharge 5. Planned Discharge Disposition Based on a comprehensive family assessment, assistance with instrumental activities of daily livingafter discharge will be provided by patient and family Through the course of our work I determined that the patient and family possesses the skill and ability to provide and monitor the care of the patient when he or she returns home. patient and family has the capacity to provide/monitor/arrange for the care of the patient. Finally, we determined that patient and family has the knowledge of available resources and that combining them with their existing resources will suffice to sustain and care for the patient when he or she returns home. The treatment team is aware of this information. All are in agreement with the aftercare plan. Anabel Taylor RN STIGATION OFFICER * Plan of Care - José Luis Willianmarianne - 07/06/2023 5:11 AM CST Goals: Clinical Goals for the Shift: orient patient to floor, monitor vitals and I&O's, pain management, ambulation Problem: Lack of Knowledge: Goal: Ability to identify pain intensity on a pain scale and rate it consistently will improve Outcome: Progressing Goal: Ability to notify healthcare provider of pain before it becomes unmanageable or unbearable will improve Outcome: Progressing Problem: Medication: Goal: Satisfaction with pain management regimen will improve Outcome: Not Progressing Problem: Sensory: Goal: Pain level will decrease Outcome: Not Progressing Problem: Activity: Goal: Ability to return to normal activity level will improve Outcome: Not Progressing Problem: Lack of Knowledge: Goal: Ability to develop a pain control plan will improve Outcome: Ongoing Problem: Sensory: Goal: Ability to identify factors that increase the pain will improve Outcome: Ongoing Summary: STIGATION OFFICER * Plan of Care - Ev Meza RN - 07/05/2023 6:24 PM CST Goals: Clinical Goals for the Shift: orient patient to floor, monitor vitals and I&O's, pain management, ambulation Summary: Continue to monitor vitals and temp for fever. Monitor and treat pain as ordered. STIGATION OFFICER * Plan of Care - Sherri Negrete RN - 07/05/2023 2:32 AM CST Problem: Health Behavior: Goal: Understanding of discharge needs will improve 07/05/2023231 by Sherri Negrete RN Outcome: Progressing 07/05/202343 by Sherri Negrete RN Outcome: Progressing Problem: Lack of Knowledge: Goal: Ability to develop a pain control plan will improve 07/05/2023 023 by Sherri Negrete RN Outcome: Progressing 07/05/202343 by Sherri Negrete RN Outcome: Progressing Goal: Ability to identify pain intensity on a pain scale and rate it consistently will improve 07/05/2023 023 by Sherri Negrete RN Outcome: Progressing 07/05/202343 by Sherri Negrete RN Outcome: Progressing Goal: Ability to notify healthcare provider of pain before it becomes unmanageable or unbearable will improve 07/05/2023 023 by Sherri Negrete RN Outcome: Progressing 07/05/202343 by Sherri Negrete RN Outcome: Progressing Problem: Medication: Goal: Satisfaction with pain management regimen will improve 07/05/2023 023 by Sherri Negrete RN Outcome: Progressing 07/05/202343 by Sherri Negrete RN Outcome: Progressing Problem: Sensory: Goal: Ability to identify factors that increase the pain will improve 07/05/2023 023 by Sherri Negrete RN Outcome: Progressing 07/05/202343 by Sherri Negrete RN Outcome: Progressing Goal: Pain level will decrease 07/05/2023 023 by Sherri Negrete RN Outcome: Progressing 07/05/202343 by Sherri Negrete RN Outcome: Progressing Problem: Activity: Goal: Ability to return to normal activity level will improve 07/05/2023 023 by Sherri Negrete RN Outcome: Progressing 07/05/202343 by Sherri Negrete RN Outcome: Progressing Problem: Lack of Knowledge: Goal: Knowledge of the prescribed therapeutic regimen will improve 07/05/2023 023 by Sherri Negrete RN Outcome: Progressing 07/05/202343 by Sherri Negrete RN Outcome: Progressing Problem: Coping: Goal: Ability to cope will improve 07/05/2023 023 by Sherri Negrete RN Outcome: Progressing 07/05/202343 by Sherri Negrete RN Outcome: Progressing Problem: Health Behavior: Goal: Identification of resources available to assist in meeting health care needs will improve 07/05/2023 023 by Sherri Negrete RN Outcome: Progressing 07/05/202343 by Sherri Negrete RN Outcome: Progressing Problem: Sensory: Goal: Pain level will decrease 07/05/2023 0232 by Sherri Negrete RN Outcome: Progressing 07/05/2023 0044 by Sherri Negrete RN Outcome: Progressing Goals: Clinical Goals for the Shift: orient patient to floor, monitor vitals and I&O's, pain management, ambulation Summary: patient is oriented to floor, post op vitals completed, patient ambulated well 4 hours after post op, patient has had no urine output overnight STIGATION OFFICER * Op Note - Marcus Gamboa MD - 07/04/2023 7:30 PM CST Operative Report SURGEON: Marcus Gamboa MD SURGICAL TEAM: Vegetable Harvest Worker: Essie Glass RN Dog Sitter: Guerrero Seals RT Scrub: Len Richards RN DATE OF SURGERY : 07/04/2023 PREOPERATIVE DIAGNOSIS: Pre-op Diagnosis * Ureteral stone [N20.1] POSTOPERATIVE DIAGNOSIS: Post-op Diagnosis * Ureteral stone [N20.1] PROCEDURE: CYSTOSCOPY, URETEROSCOPY (L) with EXTRACTION STONE (L), PLACEMENT STENT - URETERAL (L) INDICATION FOR PROCEDURE: 33yoM with a symptomatic left ureteral stone. ANESTHESIA: General IMPLANTS: Implant Name Type Inv. Item Serial No. Sprayer Operator Lot No. [id number] No. Used Action [employer] [place] 6fr 28cm Pusher Fluoro Marker Atraumatic Insertion Latex [id number] - [id number] Stent [employer] [place] 6fr 28cm Pusher Fluoro Marker Atraumatic Insertion Latex Free [id number] [employer] [id number] Left 1 Implanted OPERATIVE DETAILS Estimated Blood Loss: No blood loss documented. Intraoperative Fluids: See anesthesia records Blood/Blood Products Transfused: None Specimens: Order Name Source Comment Collection Info Order Time SURGICAL PATHOLOGY Calculus/calculi/stone, gross and Chemical Analysis Collected By: Marcus Gamboa MD 07/04/2023 7:34 PM PROCEDURE: After informed consent was obtained, the patient was taken to the operating room and administered ageneral anesthetic. The patient was placed in Lithotomy position, prepped and draped in the usual sterile fashion for cystoscopy and ureteroscopy. All members of the operating team were in agreement for the timeout regarding the procedure. The patient was administered antibiotics prior to the startof the procedure. We inserted the rigid cystoscope into the bladder and performed a careful cystoscopy. No tumors, erythema, or other lesions were observed in the bladder or urethra. We advanced a motion/sensor wire into the left ureteral orifice and advanced this to the level of the kidney under fluoroscopic guidance. We could see contrast retained within a hydronephrotic left upper urinary tract within the renalpelvis and proximal left ureter. The cystoscope was removed. Over the wire, we advanced a 12-14 irish x 46 cm ureteral access sheath underfluoroscopic guidance on the right side until gentle resistance was met likely in the area of the stone given that it was also where the contrast stopped outlining the upper urinary tract. Flexible ureteroscopy with the reusable digital flexible ureteroscope was performed. We used the 1.9 fr zero-tip basket to remove stone from the ureter, and then also from multiple calyces. He did have multiple dense Phil's plaque throughout the kidneys. Once we removed all of thekidney stone and tissue slough, we repeated inspection and saw no additional stones. We slowly withdrew the scope and sheath and did see a grade I ureteral erosion of the distal left ureter so we reinserted a wire into the left renal pelvis and removed the scope and sheath. I felt it would be safest to leave a stent without strings. Over the wire we placed a 6 irish x 28 cm left Bard [place] ureteral stent under fluoroscopic guidance with the strings removed. The bladder was emptied and the patient was awakened and taken to recovery in good condition. The stent will be removed in approximately 1-2 weeks via cystoscopy in the office. Operative findings: Left ureteral and renal stones. Left hydronephrosis. Dense Phil's plaques. Complications: none Condition on Discharge from the operating room was stable Marcus Gamboa MD Date: 07/04/2023 Time: 8:53 PM TEACHING ATTESTATION : I was present and directly participated in the entire procedure (including opening and closing). STIGATION OFFICER STIGATION OFFICER * Brief Op Note - Terrell Luna MD - 07/04/2023 7:30 PM INVESTIGATION OFFICER Operative Progress Note Surgical Team: Surgeon(s) and Role: * Marcus Gamboa MD - Primary * Terrell Luna MD - Resident - Assisting Anesthesiologist: Artem Zepeda MD NCA CERTIFIED CONCIERGE: Christoph Singh CRNA Vegetable Harvest Worker: Essie Glass RN Dog Sitter: Guerrero Seals RT Scrub: Len Richards RN DATE OF SURGERY : 07/04/2023 Preoperative Diagnosis: Pre-op Diagnosis * Ureteral stone [N20.1] Postoperative Diagnosis: Post-op Diagnosis * Ureteral stone [N20.1] Procedure(s): Procedure(s) (LRB): CYSTOSCOPY (N/A) URETEROSCOPY (Left) PLACEMENT STENT - URETERAL (Left) Operative Findings: Ureteral stone, left nephrolithiasis able to be extracted without laser lithotripsy. Estimated Blood Loss: No blood loss documented. Intraoperative Fluids: 600 mls Specimens: ID Type Source Tests Collected by Time A : Left kidney stone for chemical analysis Tissue Calculus/calculi/stone, gross and Chemical Analysis SURGICAL PATHOLOGY Marcus Gamboa MD 07/04/2023 193 Implants: Implant Name Type Inv. Item Serial No. Sprayer Operator Lot No. LRB No. Used Action [facility] [employer] [place] 6fr 28cm Pusher Fluoro Marker Atraumatic Insertion Latex [id number] - [id number] Stent [employer] [place] 6fr 28cm Pusher Fluoro Marker Atraumatic Insertion Latex [id number] [facility] [id number] Left 1 Implanted Blood/Blood Products Transfused: 0 mls Complications: None Condition on Discharge from the operating room was stable Terrell Luna MD Date: 07/04/2023 Time: 8:02 PM Cosigned by Marcus Gamboa MD at 07/04/2023 9:18 PM INVESTIGATION OFFICER STIGATION OFFICER STIGATION OFFICER Associated attestation - Marcus Gamboa MD - 07/04/2023 9:18 PM INVESTIGATION OFFICER I have seen and examined the patient on 07/04/23. I agree with the findings and plan of care as documented in the resident's/fellow's note.. * ED Re-evaluation Note - Ney Acosta MD - 07/04/2023 3:28 PM CST ED Re-evaluation ED Course as of 07/04/23 1625 Time: 07/04 1444 Comment: Spoke to radiology, 3 mm prox ureter stone. Slight increase in aortic size, unlikely to explain symptoms. By: Jonathan Borja MD Time: 07/04 1454 Comment: IMPRESSION: 1. 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 There is been interval slight increase in size of the aneurysm and caliber of the descending thoracic aorta which may be related to persistent filling of the false lumen. No evidence of stent migration 2. Obstructing stone in the proximal left ureter with resultant mild left hydronephrosis which may account for patient's reported abdominal pain.] Note, given numerous small bilateral renal stones, consider metabolic workup for further evaluation. 3. Slight increase in size of a focal outpouching along the left common femoral artery which may represent a small left common femoral artery pseudoaneurysm versus increased opacification within a vascular access device. By: Jonathan Borja MD Time: 07/04 9727 Comment: Spoke to urology they will come see him. By: Jonathan Borja MD Time: 07/04 1501 Comment: Attending sign out: 33 M with obstructing nephrolithiasis, urology to see, likely admit for pain control. Also recent Type B dissection, vascular to evaluate By: Chelle Elliott MD Time: 07/04 1501 Comment: TRANSITION OF CARE: Dispo: admit Pending: workup, urology consult Summary: 33 y.o. male here with flank pain and obstructing renal stone. Slight increase of previousdissection. Pending vascular. Admit pending urology. I, Ney Acosta MD, am taking signout and assuming care of this patient from the previous physician. Final diagnoses: Left flank pain Ureteral stone By: Ney Acosta MD Time: 07/04 8037 Comment: Spoke with Urology, they think the patient would likely require admission for stent placement. Still pending vascular surgery evaluation. Unclear who the patient will be admitted to yet. By: Ney Acosta MD Time: 07/04 1622 Comment: Urology will take to the OR this afternoon. Still pending vascular eval, will send repeat page By: Ney Acosta MD McElroy, Mitchell Sterling, MD Resident 07/04/23 1528 STIGATION OFFICER * ED Procedure Note - Rosey Posada MD - 07/04/2023 11:53 AM INVESTIGATION OFFICER Associated Order(s): ECG 12 lead Procedure ECG 12 lead Date/Time: 07/04/2023 11:53 AM Performed by: Rosey Posada MD Authorized by: Guille Navarro MD Rate: ECG rate: 76 ECG rate assessment: normal Rhythm: Rhythm: sinus rhythm Ectopy: Ectopy: none QRS: QRS axis: Normal QRS intervals: Normal Conduction: Conduction: normal ST segments: ST segments: Normal T waves: T waves: flattening and inverted Flattening: II Inverted: III, aVF, V6 and V5 Other findings: Other findings: LVH Previous ECG: Previous ECG: Compared to current Date of previous EC07/02/2023 Interpretation: Interpretation: No significant change Recommended Follow-up: Recommended follow up: further workup in the ED Rosey Posada MD 07/04/23 1155 STIGATION OFFICER documented in this encounter Plan of Treatment Pending Results Name Type Priority Associated Diagnoses Date /Time Creatine kinase (CK), total Lab STAT 07/04/2023 12:23 PM INVESTIGATION OFFICER Scheduled Orders Name Type Priority Associated Diagnoses Orde r Schedule Creatine kinase (CK), total Lab STAT Once for 1 Occur rences starting 07/04/2023 until 07/04/2023 documented as of this encounter Procedures Procedure Name Priority Date/Time Associated Diagnosis Comments VANCOMYCIN LEVEL TROUGH Timed 07/07/2023 1:32 AM INVESTIGATION OFFICER EGFR Routine 07/06/2023 10:04 PM INVESTIGATION OFFICER CBC WITHOUT DIFFERENTIAL Routine 07/06/2023 10:04 PM INVESTIGATION OFFICER PHOSPHORUS Routine 07/06/2023 10:04 PM INVESTIGATION OFFICER MAGNESIUM Routine 07/06/2023 10:04 PM INVESTIGATION OFFICER BASIC METABOLIC PANEL Routine 07/06/2023 10:[address] ABDOMEN PELVIS W CONTRAST ED Urgent/IP Urgent 07/06/2023 7:43 AM INVESTIGATION OFFICER CBC WITHOUT DIFFERENTIAL Timed 07/06/2023 5:26 AM INVESTIGATION OFFICER LACTATE Timed 07/05/2023 9:14 PM INVESTIGATION OFFICER EGFR Timed 07/05/2023 9:14 PM INVESTIGATION OFFICER CBC WITHOUT DIFFERENTIAL Timed 07/05/2023 9:14 PM INVESTIGATION OFFICER BASIC METABOLIC PANEL Timed 07/05/2023 9:14 PM INVESTIGATION OFFICER XR CHEST 1 VIEW ED Urgent/IP Urgent 07/05/2023 1:44 PM INVESTIGATION OFFICER XR ABDOMEN AP 1 VIEW ED Urgent/IP Urgent 07/05/2023 1:44 PM INVESTIGATION OFFICER LACTATE Routine 07/05/2023 1:09 PM INVESTIGATION OFFICER BLOOD CULTURE Timed 07/05/2023 1:09 PM INVESTIGATION OFFICER BLOOD CULTURE Timed 07/05/2023 1:09 PM INVESTIGATION OFFICER CBC WITHOUT DIFFERENTIAL Routine 07/05/2023 1:09 PM INVESTIGATION OFFICER URINE CULTURE Routine 07/05/2023 1:09 PM INVESTIGATION OFFICER FL FLUOROSCOPY < 1 HOUR IP Routine 07/04/2023 8:16 PM INVESTIGATION OFFICER Ureteral stone SURGICAL PATHOLOGY Routine 07/04/2023 7: 34 PM INVESTIGATION OFFICER Ureteral stone EXTRACTION STONE 07/04/2023 7:10 PM INVESTIGATION OFFICER Ureteral stone Case Notes [phone] PLACEMENT STENT - URETERAL 07/04/2023 7:10 PM INVESTIGATION OFFICER Ureteral stone Case Notes [phone] URETEROSCOPY 07/04/2023 7:10 PM INVESTIGATION OFFICER Ureteral stone Case Notes [phone] CYSTOSCOPY 07/04/2023 7:10 PM INVESTIGATION OFFICER Ureteral stone Case Notes [phone] TROPONIN I HIGH-SENSITIVITY 2-HOUR Timed 07/04/2023 2:19 PM INVESTIGATION OFFICER CTA CHEST ABDOMEN PELVIS ED Urgent/IP Urgent 07/04/2023 2:06 PM INVESTIGATION OFFICER URINALYSIS AND REFLEX TO MICROSCOPIC STAT 07/04/2023 1:08 PM INVESTIGATION OFFICER URINALYSIS, MICROSCOPIC ONLY STAT 07/04/2023 1:08 PM INVESTIGATION OFFICER XR CHEST 1 VIEW ED Urgent/IP Urgent 07/04/2023 12:46 PM INVESTIGATION OFFICER TROPONIN I HIGH-SENSITIVITY SERIES (BASELINE, 2HR, 4HR, 6HR) STAT 07/04/2023 12:23 PM INVESTIGATION OFFICER LACTATE STAT 07/04/2023 12:23 PM INVESTIGATION OFFICER EGFR STAT 07/04/2023 12:23 PM INVESTIGATION OFFICER DIFFERENTIAL AUTO STAT 07/04/2023 12: 23 PM INVESTIGATION OFFICER CBC WITH AUTO DIFFERENTIAL STAT 07/04/2023 12:23 PM INVESTIGATION OFFICER LIPASE STAT 07/04/2023 12:23 PM INVESTIGATION OFFICER CREATINE KINASE (CK), TOTAL STAT 07/04/2023 12:23 PM INVESTIGATION OFFICER COMPREHENSIVE METABOLIC PANEL STAT 07/04/2023 12:23 PM INVESTIGATION OFFICER ECG 12-LEAD STAT 07/04/2023 11:53 AM INVESTIGATION OFFICER documented in this encounter Results * Vancomycin level trough Draw trough 30 minutes prior to 4th dose. (07/07/2023 1:32 AM INVESTIGATION OFFICER) Vancomycin trough 14.5 10.0 - 20.0 mcg/mL [facility] Blood 07/07/2023 1:32 AM INVESTIGATION OFFICER 07/07/2023 1:57 AM INVESTIGATION OFFICER Narrative [facility] - 07/07/2023 2:37 AM INVESTIGATION OFFICER Draw trough 30 minutes prior to 4th dose. us Gisele Courtney [employer] PROCESSOR LAB BLOOD ORDERABLES Final Res ult [facility] Department [place] [address] * eGFR (07/06/2023 10:04 PM INVESTIGATION OFFICER) Pathologist [facility] eGFR >90 >=60 mL/min/1. 73 m2 [facility] Comment: Interpretive Data Reference Interval Normal ?>/= [...] interpretive data was last reviewed 2021. Blood 07/06/2023 10:0 4 PM INVESTIGATION OFFICER 07/06/2023 10:58 PM INVESTIGATION OFFICER Marcus Gamboa MD LAB BLOOD ORDERABLE S Final Result [facility] Department [place] [address] * (ABNORMAL) CBC without differential (07/06/2023 10:04 PM INVESTIGATION OFFICER) WBC 12.6(H) 3.8 - 9.9 K/cumm [facility] Hgb 8.0(L) 13.0 - 17.5 g/dL [facility] Hct 24.6(L) 38.9 - 50.3 % [facility] Plt 368 150 - 400 K/cumm [facility] MPV 9.4 9.1 - 12.3 fL [facility] RBC 2.82(L) 4.30 - 5.80 M/cumm [facility] MCV 87.2 81.3 - 96.4 fL [facility] MCH 28.4 27.1 - 33.3 pg [facility] MCHC 32.5 32.3 - 35.7 g/dL [facility] RDW CV 13.7 11.1 - 14.9 % [facility] RDW SD 43.5 35.7 - 48.1 fL [facility] NRBC abs 0.00 0.00 - 0.01 K/cumm [facility] Blood 07/06/2023 10:0 4 PM INVESTIGATION OFFICER 07/06/2023 10:57 PM INVESTIGATION OFFICER Marcus Gamboa MD LAB BLOOD ORDERABLE S Final Result [facility] [place] [address] * Phosphorus (07/06/2023 10:04 PM INVESTIGATION OFFICER) [facility] Phosphorus, pl 2.6 2.3 - 4.5 mg/dL [facility] Blood 07/06/2023 10:0 4 PM INVESTIGATION OFFICER 07/06/2023 10:58 PM INVESTIGATION OFFICER Marcus Gamboa MD LAB BLOOD ORDERABLE S Final Result [facility] [place] [address] * Magnesium (07/06/2023 10:04 PM INVESTIGATION OFFICER) [facility] Magnesium 1.7 1.4 - 2.5 mg/dL [facility] Blood 07/06/2023 10:0 4 PM INVESTIGATION OFFICER 07/06/2023 10:58 PM INVESTIGATION OFFICER Marcus Gamboa MD LAB BLOOD ORDERABLE S Final Result Performing Organization Address City/[facility]/[place] [address] * (ABNORMAL) Basic metabolic panel (07/06/2023 10:04 PM INVESTIGATION OFFICER) [facility] Sodium 140 135 - 145 mmol/L [facility] Potassium, pl 3.2(L) 3.3 - 4.9 mmol/L [facility] Chloride 102 97 - 110 mmol/L [facility] CO2 27 22 - 32 mmol/L [facility] Anion gap 11 2 - 15 mmol/L [facility] BUN 9 6 - 25 mg/dL [facility] Creatinine 0.80 0.80 - 1.30 mg/dL [facility] Glucose 106 70 - 199 mg/dL [facility] Comment: Interpretive Data Fasting glucose >/= [...] 2022. Calcium 8.9 8.5 - 10.3 mg/dL [facility] Blood 07/06/2023 10:0 4 PM INVESTIGATION OFFICER 07/06/2023 10:58 PM INVESTIGATION OFFICER us Marcus Gamboa MD LAB BLOOD ORDERABLE S Final Result [facility] Department [place] [address] * CT Abdomen Pelvis W Contrast (07/06/2023 7:43 AM INVESTIGATION OFFICER) Anatomical Region Laterality Modality Body N/A Computed Tomogra phy 07/06/2023 8:32 AM INVESTIGATION OFFICER Impressions 07/06/2023 8:34 AM INVESTIGATION OFFICER 1. 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 2. Interval placement of a left nephroureteral stent with unchanged mild hydronephrosis. Interval passing of a ureteral stone and left mid zone renal stone. Dictated by: Dalton Milian MD The radiology attending physician has personally reviewed this study, and had reviewed and/or edited this written report and agrees with it. Electronically signed by: Katy Llamas M.D. Narrative 07/06/2023 8:34 AM INVESTIGATION OFFICER EXAMINATION: ??Computed tomography of the abdomen and pelvis with intravenous contrast HISTORY: Thoracoabdominal aorta dissection status post endovascular stenting with abdominal pain TECHNIQUE: ??Transaxial computed tomographic images of the abdomen and pelvis were obtained with intravenous contrast according to the standard protocol after the uneventful administration of 75 mL Opti-Ray 350 intravenous contrast. COMPARISON: 07/04/2023 FINDINGS: Mild dependent atelectasis. Small segment 8 hyperattenuating lesion likely hemangioma is unchanged. Spleen, pancreas, gallbladder, adrenal glands are normal. Kidneys enhance symmetrically. Small bilateral nonobstructing renal stones. Interval placement of a left double-J ureteral stent with unchanged mild hydronephrosis on the left. Previous left-sided mid zone renal stone and ureteral stone is no longer seen. Urinary bladder is normal. No bowel obstruction. Appendix is normal. No abdominal or pelvic lymphadenopathy. No ascites or pneumoperitoneum. Partially imaged endovascular aortic stent graft extending to the infrarenal aorta. There is continuation of the dissection flap into the left common iliac artery, unchanged. There is unchanged filling of the false lumen in the suprarenal aorta which is similar in size to prior. No suspicious osseous lesion. Procedure Note Katy Llamas MD - 07/06/2023 EXAMINATION: Computed tomography of the abdomen and pelvis with intravenous contrast HISTORY: Thoracoabdominal aorta dissection status post endovascular stenting with abdominal pain TECHNIQUE: Transaxial computed tomographic images of the abdomen and pelvis were obtained with intravenous contrast according to the standard protocol after the uneventful administration of 75 mL Opti-Ray 350 intravenous contrast. COMPARISON: 07/04/2023 FINDINGS: Mild dependent atelectasis. Small segment 8 hyperattenuating lesion likely hemangioma is unchanged. Spleen, pancreas, gallbladder, adrenal glands are normal. Kidneys enhance symmetrically. Small bilateral nonobstructing renal stones. Interval placement of a left double-J ureteral stent with unchanged mild hydronephrosis on the left. Previous left-sided mid zone renal stone and ureteral stone is no longer seen. Urinary bladder is normal. No bowel obstruction. Appendix is normal. No abdominal or pelvic lymphadenopathy. No ascites or pneumoperitoneum. Partially imaged endovascular aortic stent graft extending to the infrarenal aorta. There is continuation of the dissection flap into the left common iliac artery, unchanged. There is unchanged filling of the false lumen in the suprarenal aorta which is similar in size to prior. No suspicious osseous lesion. IMPRESSION: 1. 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 2. Interval placement of a left nephroureteral stent with unchanged mild hydronephrosis. Interval passing of a ureteral stone and left mid zone renal stone. Dictated by: Dalton Milian MD The radiology attending physician has personally reviewed this study, and had reviewed and/or edited this written report and agrees with it. Electronically signed by: Katy Llamas M.D. Gisele Courtney [employer] PROCESSOR IMG CT PROCEDURES Final Result * (ABNORMAL) CBC without differential (07/06/2023 5:26 AM INVESTIGATION OFFICER) Pathologist [facility] WBC 15.7(H) 3.8 - 9.9 K/cumm [facility] Hgb 7.9(L) 13.0 - 17.5 g/dL [facility] Hct 23.9(L) 38.9 - 50.3 % [facility] Plt 327 150 - 400 K/cumm [facility] MPV 9.1 9.1 - 12.3 fL [facility] RBC 2.75(L) 4.30 - 5.80 M/cumm [facility] MCV 86.9 81.3 - 96.4 fL [facility] MCH 28.7 27.1 - 33.3 pg [facility] MCHC 33.1 32.3 - 35.7 g/dL [facility] RDW CV 13.9 11.1 - 14.9 % [facility] RDW SD 43.9 35.7 - 48.1 fL [facility] NRBC abs 0.00 0.00 - 0.01 K/cumm [facility] Blood 07/06/2023 5:26 AM INVESTIGATION OFFICER 07/06/2023 5:44 AM INVESTIGATION OFFICER Marcus Gamboa MD LAB BLOOD ORDERABLE S Final Result [facility] Department [place] [address] * eGFR (07/05/2023 9:14 PM INVESTIGATION OFFICER) Pathologist [facility] eGFR 67 >=60 mL/min/1. 73 m2 [facility] Comment: Interpretive Data Reference Interval Normal ?>/= [...] interpretive data was last reviewed 2021. Blood 07/05/2023 9:14 PM INVESTIGATION OFFICER 07/05/2023 10:22 PM INVESTIGATION OFFICER Marcus Gamboa MD LAB BLOOD ORDERABLE S Final Result Performing Organization Address [facility] Co de Phone Number [facility] Department [place] [employer] [place] [address] * Lactate (07/05/2023 9:14 PM INVESTIGATION OFFICER) Lactate 0.7 0.7 - 2.0 mmol/L [facility] Blood 07/05/2023 9:14 PM INVESTIGATION OFFICER 07/05/2023 10:22 PM INVESTIGATION OFFICER Marcus Gamboa MD LAB BLOOD ORDERABLE S Final Result Performing Organization Address [facility] de Phone Number [facility] Department [place] [address] * (ABNORMAL) Basic metabolic panel (07/05/2023 9:14 PM INVESTIGATION OFFICER) Pathologist [facility] Sodium 140 135 - 145 mmol/L [facility] Potassium, pl 3.6 3.3 - 4.9 mmol/L [facility] Chloride 104 97 - 110 mmol/L [facility] CO2 25 22 - 32 mmol/L [facility] Anion gap 11 2 - 15 mmol/L [facility] BUN 17 6 - 25 mg/dL [facility] Creatinine 1.43(H) 0.80 - 1.30 mg/dL [facility] Glucose 102 70 - 199 mg/dL [facility] Comment: Interpretive Data Fasting glucose >/= [...] interpretive data was last revised 2022. Calcium 8.7 8.5 - 10.3 mg/dL [facility] Blood 07/05/2023 9:14 PM INVESTIGATION OFFICER 07/05/2023 10:22 PM INVESTIGATION OFFICER Marcus Gamboa MD LAB BLOOD ORDERABLE S Final Result [facility] Department [place] [address] * (ABNORMAL) CBC without differential (07/05/2023 9:14 PM INVESTIGATION OFFICER) Pathologist [facility] WBC 19.6(H) 3.8 - 9.9 K/cumm [facility] Hgb 7.8(L) 13.0 - 17.5 g/dL [facility] Hct 24.9(L) 38.9 - 50.3 % [facility] Plt 351 150 - 400 K/cumm [facility] MPV 9.7 9.1 - 12.3 fL [facility] RBC 2.85(L) 4.30 - 5.80 M/cumm [facility] MCV 87.4 81.3 - 96.4 fL [facility] MCH 27.4 27.1 - 33.3 pg [facility] MCHC 31.3(L) 32.3 - 35.7 g/dL [facility] RDW CV 13.9 11.1 - 14.9 % [facility] RDW SD 44.2 35.7 - 48.1 fL [facility] NRBC abs 0.00 0.00 - 0.01 K/cumm [facility] Blood 07/05/2023 9:14 PM INVESTIGATION OFFICER 07/05/2023 10:22 PM INVESTIGATION OFFICER Marcus Gamboa MD LAB BLOOD ORDERABLE S Final Result [facility] Department [place] [address] * XR Chest 1 View (07/05/2023 1:44 PM INVESTIGATION OFFICER) Anatomical Region Laterality Modality Body, Chest N/A Computed Radiogr aphy 07/05/2023 3:06 PM INVESTIGATION OFFICER Impressions 07/05/2023 3:34 PM INVESTIGATION OFFICER Comparison 07/04/2023 Thoracic aortic and left subclavian vascular stent is again seen. No pulmonary consolidation, pleural effusion or pneumothorax. Cardiac and mediastinal contours are unchanged. Calcified granuloma in the left lung base. Dictated by: Nash Singleton MD The radiology attending physician has personally reviewed this study, and had reviewed and/or edited this written report and agrees with it. Electronically signed by: James Alvarado M.D. Narrative 07/05/2023 3:34 PM INVESTIGATION OFFICER EXAMINATION: 1 view chest radiograph Procedure Note James Alvarado MD - 07/05/2023 EXAMINATION: 1 view chest radiograph IMPRESSION: Comparison 07/04/2023 Thoracic aortic and left subclavian vascular stent is again seen. No pulmonary consolidation, pleural effusion or pneumothorax. Cardiac and mediastinal contours are unchanged. Calcified granuloma in the left lung base. Dictated by: Nash Singleton MD The radiology attending physician has personally reviewed this study, and had reviewed and/or edited this written report and agrees with it. Electronically signed by: James Alvarado M.D. us Gisele Courtney [employer] PROCESSOR IMG XR PROCEDURES Final Result * XR Abdomen Ap 1 Vw (07/05/2023 1:44 PM INVESTIGATION OFFICER) Anatomical Region Laterality Modality Body, Abdomen N/A Computed Radiogr aphy 07/05/2023 2:51 PM INVESTIGATION OFFICER Impressions 07/05/2023 2:54 PM INVESTIGATION OFFICER A single view of the abdomen is submitted for evaluation. Aortic stent graft projects over the midline abdomen and thorax. Double-J ureteral stent projects over the left hemiabdomen. ??Mildly dilated loops of small bowel and colon compatible with ileus. Dictated by: Hill Boyd MD The radiology attending physician has personally reviewed this study, and had reviewed and/or edited this written report and agrees with it. Electronically signed by: Otoniel Mccain M.D. Narrative 07/05/2023 2:54 PM INVESTIGATION OFFICER EXAMINATION: Abdomen, one view. HISTORY: 33-year-old male with aortic dissection and obstructing left ureteral stone. ??Abdominal pain. COMPARISON: CT 07/04/2023 Procedure Note Otoniel Mccain MD PhD - 07/05/2023 EXAMINATION: Abdomen, one view. HISTORY: 33-year-old male with aortic dissection and obstructing left ureteral stone. Abdominal pain. COMPARISON: CT 07/04/2023 IMPRESSION: A single view of the abdomen is submitted for evaluation. Aortic stent graft projects over the midline abdomen and thorax. Double-J ureteral stent projects over the left hemiabdomen. Mildly dilated loops of small bowel and colon compatible with ileus. Dictated by: Hill Boyd MD The radiology attending physician has personally reviewed this study, and had reviewed and/or edited this written report and agrees with it. Electronically signed by: Otoniel Mccain M.D. us Marcus Gamboa MD IMG XR PROCEDURES F inal Result * Blood culture Blood (07/05/2023 1:09 PM INVESTIGATION OFFICER) Report Final Report: No growth [facility] Blood 07/05/2023 1:09 PM INVESTIGATION OFFICER 07/05/2023 2:17 PM INVESTIGATION OFFICER Narrative [facility] - 07/09/2023 4:00 PM INVESTIGATION OFFICER From a different site than #1. Collection->Peripheral 1. ?Blood cultures are incubated for [...] organism identification may be performed using the [employer] Gram-Positive Blood Culture Assay. This assay detects microbial DNA in positive blood culture broth via hybridization of target DNA to capture oligonucleotides on a microarray. This assay has been cleared by the [place] Food and Drug Administration and its performance characteristics have been verified by the [facility]. 5. ?For questions about this culture, contact the Microbiology Laboratory at [phone]. Interpretive data was last revised on 2019. us Gisele Courtney NP LAB MICROBIOLOGY - GENERAL ORD ERABLES Final Result [facility] Department [place] [address] * Blood culture Blood (07/05/2023 1:09 PM INVESTIGATION OFFICER) Report Final Report: No growth [facility] Blood 07/05/2023 1:09 PM INVESTIGATION OFFICER 07/05/2023 2:17 PM INVESTIGATION OFFICER Narrative [facility] - 07/09/2023 4:00 PM INVESTIGATION OFFICER Collection->Peripheral 1. ?Blood cultures are incubated for [...] organism identification may be performed using the [employer] Gram-Positive Blood Culture Assay. This assay detects microbial DNA in positive blood culture broth via hybridization of target DNA to capture oligonucleotides on a microarray. This assay has been cleared by the [place] Food and Drug Administration and its performance characteristics have been verified by the [facility]. 5. ?For questions about this culture, contact the Microbiology Laboratory at [phone]. Interpretive data was last revised on 2019. us Gisele Courtney NP LAB MICROBIOLOGY - GENERAL ORD ERABLES Final Result [facility] Department [place] [address] * Lactate (07/05/2023 1:09 PM INVESTIGATION OFFICER) Lactate 1.7 0.7 - 2.0 mmol/L [facility] Blood 07/05/2023 1:09 PM INVESTIGATION OFFICER 07/05/2023 1:48 PM INVESTIGATION OFFICER Gisele Courtney [employer] PROCESSOR LAB BLOOD ORDERABLES Final Res ult Performing Organization Address [facility]/ZIP Co de Phone Number [facility] Department [place] [address] * (ABNORMAL) CBC without differential (07/05/2023 1:09 PM INVESTIGATION OFFICER) WBC 15.3(H) 3.8 - 9.9 K/cumm [facility] Hgb 9.0(L) 13.0 - 17.5 g/dL [facility] Hct 28.1(L) 38.9 - 50.3 % [facility] Plt 359 150 - 400 K/cumm [facility] MPV 9.4 9.1 - 12.3 fL [facility] RBC 3.21(L) 4.30 - 5.80 M/cumm [facility] MCV 87.5 81.3 - 96.4 fL [facility] MCH 28.0 27.1 - 33.3 pg [facility] MCHC 32.0(L) 32.3 - 35.7 g/dL [facility] RDW CV 13.5 11.1 - 14.9 % [facility] RDW SD 43.2 35.7 - 48.1 fL [facility] NRBC abs 0.00 0.00 - 0.01 K/cumm [facility] Blood 07/05/2023 1:09 PM INVESTIGATION OFFICER 07/05/2023 1:48 PM INVESTIGATION OFFICER Gisele Courtney [employer] PROCESSOR LAB BLOOD ORDERABLES Final Res ult [facility] [place] [address] * Urine culture Urine, clean voided (07/05/2023 1:09 PM INVESTIGATION OFFICER) Report Final Report: No growth [facility] Urine, clean voided 07/05/2023 1:09 PM INVESTIGATION OFFICER 07/05/2023 2:10 PM INVESTIGATION OFFICER Narrative [facility] - 07/06/2023 4:05 PM INVESTIGATION OFFICER Indications for Culture:->Urology patient Testing performed by [facility] ([phone]) Gisele Courtney [employer] PROCESSOR LAB MICROBIOLOGY - GENERAL ORD ERABLES Final Result Performing Organization Address [facility]/ZIP Co de Phone Number [facility] Department [place] [address] * FL Fluoroscopy < 1 Hour (07/04/2023 8:16 PM INVESTIGATION OFFICER) Narrative [facility] - 07/04/2023 8:17 PM INVESTIGATION OFFICER The images from this study are not interpreted by Radiology. ??Please refer to the physician's procedure / OR operative note. us Nagi Landa MD IMG FLUOROSCOPY PROCED URES Final Result Performing Organization Address [facility] Co de Phone Number [email or web address] * Surgical pathology (07/04/2023 7:34 PM INVESTIGATION OFFICER) Tissue (Calculus/calculi /stone, gross and Chemical Analysis) 07/04/2023 7:34 PM INVESTIGATION OFFICER Narrative PATHOLOGY [facility] - 07/06/2023 12:25 PM INVESTIGATION OFFICER EPIC results best viewed via link to PDF [facility] Karolina Thao [facility] [place] [address] Note to Patients: This report may contain a detailed description of human tissue sent by a health care provider to the laboratory for pathologic evaluation. The content of this report is essential for diagnosis and may provide important critical findings. This information may be unfamiliar to patients to review without a medical professional present. It is advised that the patient review this report in the presence of a health care provider who can answer questions and explain the details. SURGICAL PATHOLOGY REPORT FINAL WITH ADDENDUM Patient Name: ?? ERIBERTO CHAU Gender: ??M : ??1990 (Age: 33) Address: ??[address] [place] [address] ??[id number] Hospital #: ??[id number] Taken:07/04/2023 Received:07/05/2023 Reported: 07/06/2023 Patient Type: [facility] Inpatient ?? Service: Urology Location: [place] [address] Physician(s): ??MD Carl Multani M.D. Diagnosis: Left kidney, stone, removal ? - Lithiasis (gross examination only, sent for chemical analysis) sxv/07/05/2023 11:29 By this signature, I attest that the above diagnosis is based upon my personal examination of the slides(and/or other material indicated in the diagnosis). Matty Chavez M.D., PH.D. Report Electronically Reviewed and Signed Out By ??Matty Chavez M.D., PH.D. 07/06/2023 12:25:28 History: The patient is a 33-year-old man who presents with the ureteral stone. ??Operative procedure: Cystoscopy; ureteroscopy; lithotripsy-laser; placement stent- ureteral. Specimen(s) Received: A: Left kidney stone for chemical analysis Gross Description: Received fresh in a container labeled with the patient's identifiers and designated left kidney stone for chemical analysis is a 1.0 x 0.7 x 0.3 cm aggregate of irregular [id number] calculi/fragments admixed with scant hemorrhagic material. ??The calculi are submitted for chemical analysis. ??Jar 1 (hemorrhagic material). ? PA(s): Kam Chang MS, SANCHEZ ([facility])CM By this signature, I attest that the above diagnosis is based upon my personal examination of the slides(and/or other material). Addenda/Procedures Addendum Ordered:07/14/2023Status:Signed OutAddendum Complete:07/14/2023y:Matty Chavez M.D., PH.D.Addendum Signed Out:07/17/2023 Addendum Diagnosis A digital scan of the original reference lab report will begin on page two of this addendum. ?? By this signature, I attest that the above diagnosis is based upon my personal examination of the slides(and/or other material indicated in the diagnosis). Matty Chavez M.D., PH.D.Report Electronically Reviewed and Signed Out By ??Matty Chavez M.D., PH.D. ??07/17/2023 13:18:17 ?? The performance characteristics of some immunohistochemical stains, fluorescence in-situ hybridization tests and immunophenotyping by flow cytometry cited in this report (if any) were determined by the Surgical Pathology and Flow Cytometry Departments at [facility] as part of an ongoing software quality assurance specialist program and in compliance with federally mandated regulations drawn from the Clinical Laboratory Improvement Act of 1988 (CLIA '88). ??Some of these tests rely on the use of analyte specific reagents and are subject to specific labeling requirements by the [place] Food and Drug Administration. ??Such diagnostic tests may only be performed in a facility that is certified by the Department of Health and Human Services as a high complexity laboratory under CLIA '88. ??The FDA has determined that such clearance or approval is not necessary. ??This test is used for clinical purposes. ??It should not be regarded as investigational or for research. ??Nevertheless, federal rules concerning the medical use of analyte specific reagents require that the following disclaimer be attached to the report: This test was developed and its performance characteristics determined by the Surgical Pathology and Flow Cytometry Departments of [facility]. ??It has not been cleared or approved by the U. S. Food and Drug Administration. IMAGES AND SCANNED DOCUMENTS, IF INCLUDED, ONLY VIEWABLE IN PDF VERSION OF REPORT Marcus Gamboa MD LAB PATHOLOGY ORDER CAROLINE Final Result PATHOLOGY [facility] 3rd Floor [place], [place] [phone] * Troponin I high-sensitivity 2-hour (07/04/2023 2:19 PM INVESTIGATION OFFICER) Trop I hs <4 <=35 ng/L [facility] Comment: Interpretive Data For further hscTnI resources including the diagnostic algorithm and an aid in interpretation, copy and paste this link: https://bjhlab.testcatalog.org/show/hsTrop-1 Current Interpretive Data last revised 2019. Trop I hs delta 0 ng/L [facility] Trop I hs interp Insignificant [facility] H Blood 07/04/2023 2:19 PM INVESTIGATION OFFICER 07/04/2023 2:40 PM INVESTIGATION OFFICER [facility] Taco Navarro MD LAB BLOOD ORDERABLES Fin al Result [facility] Department [place] [address] * CTA Chest Abdomen Pelvis (07/04/2023 2:06 PM INVESTIGATION OFFICER) Anatomical Region Laterality Modality Body N/A Computed Tomogra phy 07/04/2023 2:48 PM INVESTIGATION OFFICER Addenda Addendum by Katy Llamas MD on 07/05/2023 9:15 AM INVESTIGATION OFFICER Addendum: Aortic measurements to add to findings: Maximum descending thoracic aorta: 52 x 47 mm, previously 49 x 45 mm Dictated by: Nigel Dooley M.D. The radiology attending physician has personally reviewed this study, and had reviewed and/or edited this written report and agrees with it. Electronically signed by: Katy Llamas M.D. Impressions 07/04/2023 2:55 PM INVESTIGATION OFFICER 1. 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 There is been interval slight increase in size of the aneurysm and caliber of the descending thoracic aorta which may be related to persistent filling of the false lumen. No evidence of stent migration 2. Obstructing stone in the proximal left ureter with resultant mild left hydronephrosis which may account for patient's reported abdominal pain.] Note, given numerous small bilateral renal stones, consider metabolic workup for further evaluation. 3. Slight increase in size of a focal outpouching along the left common femoral artery which may represent a small left common femoral artery pseudoaneurysm versus increased opacification within a vascular access device. The Non Critical results were discussed with Jonathan Borja ?? by Dr. Devyn Dooley on 07/04/2023 at 2:46 PM Dictated by: Nigel Dooley M.D. The radiology attending physician has personally reviewed this study, and had reviewed and/or edited this written report and agrees with it. Electronically signed by: Katy Llamas M.D. Narrative 07/04/2023 2:55 PM INVESTIGATION OFFICER EXAMINATION: ??CT ANGIOGRAPHY OF THE CHEST, ABDOMEN AND PELVIS WITH AND WITHOUT CONTRAST HISTORY: 33-year-old male with history of aortic dissection status post thoracic endovascular aortic repair on 05/02/2023 with revision on 06/05/2023. Patient presenting with abdominal pain. TECHNIQUE: CT angiography of the chest, abdomen and pelvis was performed prior to and following the uneventful intravenous administration of 90 ml Optiray-350 using the post-endoluminal stent graft protocol. Vascular 3D images were generated on a dedicated workstation and also reviewed. 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 The proximal attachment site of the endovascular stent graft is just past the origin of the left common carotid artery. Vascular stent graft is noted within the left subclavian artery. The distal attachment site of the stent graft is within the infrarenal abdominal aorta. This is similar in appearance compared to prior examination. The distal most aspect of the dissection extends into the left common iliac artery which is unchanged There continues to be filling of the false lumen which is similar compared to prior examination. The inferior most aspect of this filling may be related to an apparent fenestration within the dissection flap in the left common iliac artery. The maximum caliber of the descending thoracic aorta appears to be increase in size compared to 06/13/2023 The right renal artery appears to arise from the true lumen. The superior mesenteric artery and celiac artery arise from the false lumen. The left renal artery origin is difficult to assess but may arise from the false lumen. The inferior mesenteric artery arises from the true lumen. Redemonstrated focal outpouching along the left common femoral artery is seen at series 5, image 654 which measures 7 mm, previously 4 mm NON-VASCULAR FINDINGS: Chest: Thyroid gland is normal. No suspicious lymphadenopathy in the pelvis. Calcified left hilar lymph nodes are noted. Heart size is normal. There is no pericardial effusion. Calcified granuloma in the left lower lobe. Atelectasis in the bases. There is faint groundglass within the right middle lobe which may represent sequela of inflammatory process is unchanged from 06/13/2023. Pneumothorax or pleural effusion. Abdomen/Pelvis: Small probable hemangioma within segment 8 is unchanged. Bladder is normal. Pancreas is normal. Sequela of old granulomatous disease in the spleen. Multiple bilateral renal stones are noted, largest measuring 4 mm in the upper pole the right kidney.. There is 3 mm an obstructing stone in the proximal left ureter, best seen at series 5, image 473 with mild upstream hydronephrosis. The bladder is normal. Unchanged hypoattenuating lesion in the upper pole the right kidney favored represent a renal cyst. The large bowel is normal in course and caliber. The appendix is normal. Small bowel is normal in course and caliber. No suspicious of adenopathy in the abdomen or pelvis. No suspicious osseous lesion. Procedure Note Katy Llamas MD - 07/04/2023 EXAMINATION: CT ANGIOGRAPHY OF THE CHEST, ABDOMEN AND PELVIS WITH AND WITHOUT CONTRAST HISTORY: 33-year-old male with history of aortic dissection status post thoracic endovascular aortic repair on 05/02/2023 with revision on 06/05/2023. Patient presenting with abdominal pain. TECHNIQUE: CT angiography of the chest, abdomen and pelvis was performed prior to and following the uneventful intravenous administration of 90 ml Optiray-350 using the post-endoluminal stent graft protocol. Vascular 3D images were generated on a dedicated workstation and also reviewed. 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 The proximal attachment site of the endovascular stent graft is just past the origin of the left common carotid artery. Vascular stent graft is noted within the left subclavian artery. The distal attachment site of the stent graft is within the infrarenal abdominal aorta. This is similar in appearance compared to prior examination. The distal most aspect of the dissection extends into the left common iliac artery which is unchanged There continues to be filling of the false lumen which is similar compared to prior examination. The inferior most aspect of this filling may be related to an apparent fenestration within the dissection flap in the left common iliac artery. The maximum caliber of the descending thoracic aorta appears to be increase in size compared to 06/13/2023 The right renal artery appears to arise from the true lumen. The superior mesenteric artery and celiac artery arise from the false lumen. The left renal artery origin is difficult to assess but may arise from the false lumen. The inferior mesenteric artery arises from the true lumen. Redemonstrated focal outpouching along the left common femoral artery is seen at series 5, image 654 which measures 7 mm, previously 4 mm NON-VASCULAR FINDINGS: Chest: Thyroid gland is normal. No suspicious lymphadenopathy in the pelvis. Calcified left hilar lymph nodes are noted. Heart size is normal. There is no pericardial effusion. Calcified granuloma in the left lower lobe. Atelectasis in the bases. There is faint groundglass within the right middle lobe which may represent sequela of inflammatory process is unchanged from 06/13/2023. Pneumothorax or pleural effusion. Abdomen/Pelvis: Small probable hemangioma within segment 8 is unchanged. Bladder is normal. Pancreas is normal. Sequela of old granulomatous disease in the spleen. Multiple bilateral renal stones are noted, largest measuring 4 mm in the upper pole the right kidney.. There is 3 mm an obstructing stone in the proximal left ureter, best seen at series 5, image 473 with mild upstream hydronephrosis. The bladder is normal. Unchanged hypoattenuating lesion in the upper pole the right kidney favored represent a renal cyst. The large bowel is normal in course and caliber. The appendix is normal. Small bowel is normal in course and caliber. No suspicious of adenopathy in the abdomen or pelvis. No suspicious osseous lesion. IMPRESSION: 1. 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 There is been interval slight increase in size of the aneurysm and caliber of the descending thoracic aorta which may be related to persistent filling of the false lumen. No evidence of stent migration 2. Obstructing stone in the proximal left ureter with resultant mild left hydronephrosis which may account for patient's reported abdominal pain.] Note, given numerous small bilateral renal stones, consider metabolic workup for further evaluation. 3. Slight increase in size of a focal outpouching along the left common femoral artery which may represent a small left common femoral artery pseudoaneurysm versus increased opacification within a vascular access device. The Non Critical results were discussed with Jonathan Borja MD by Dr. Devyn Dooley on 07/04/2023 at 2:46 PM Dictated by: Nigel Dooley M.D. The radiology attending physician has personally reviewed this study, and had reviewed and/or edited this written report and agrees with it. Electronically signed by: Katy Llamas M.D. us Jonathan Borja MD IMG CT PROCED URES Edited Result - Final * (ABNORMAL) Urinalysis, microscopic only (07/04/2023 1:08 PM INVESTIGATION OFFICER) WBC, ur 0-5 0 - 5 /HPF [facility] RBC, ur >50(A) 0 - 2 /HPF [facility] Epithelial cells, squamous, ur 1-5 0 - 5 /HPF [facility] Bacteria, ur 1+(A) [facility] Mucous, ur Present(A) [facility] Urine 07/04/2023 1:08 PM INVESTIGATION OFFICER 07/04/2023 1:14 PM INVESTIGATION OFFICER Nagi Landa MD LAB URINE ORDERABLES F inal Result [facility] Department [place] [address] * (ABNORMAL) Urinalysis reflex to microscopic (07/04/2023 1:08 PM INVESTIGATION OFFICER) Color, ur Tessa Yellow [facility] Clarity, ur Cloudy(A) Clear [facility] Specific gravity, ur 1.020 1.003 - 1.030 [facility] pH, urine 5.5 [facility] Comment: Interpretive Data ? Urine pH is affected by diet, medications, systemic acid-base disturbances, and renal tubular function. ??pH may affect urinary stone formation. ??For example, urine pH below 6.0 may help reduce the tendency for calcium phosphate stones and pH greater than 6.0 may reduce the tendency for uric acid stone formation. Source: [facility] Current Interpretive Data was last revised on 2017 Protein, ur ql 1+(A) Negative [facility] Glucose, ur ql Negative Negative [facility] Ketones, ur Negative Negative [facility] Bilirubin, ur Negative Negative [facility] Blood, ur 3+(A) Negative [facility] Urobilinogen, ur <2.0 <2.0 mg/dL [facility] Nitrite, ur Negative Negative [facility] Leukocyte esterase, ur Negative Negative [facility] UA reflex comment Reflex to microscopic UA will be performed. [facility] Urine 07/04/2023 1:08 PM INVESTIGATION OFFICER 07/04/2023 1:14 PM INVESTIGATION OFFICER us Nagi Landa MD LAB URINE ORDERABLES F inal Result [facility] Department [place] [address] * XR Chest 1 Vw Portable (07/04/2023 12:46 PM INVESTIGATION OFFICER) Anatomical Region Laterality Modality Body, Chest N/A Computed Radiogr aphy 07/04/2023 12:5 1 PM INVESTIGATION OFFICER Impressions 07/04/2023 12:51 PM INVESTIGATION OFFICER Comparison 06/16/2023 Thoracic endovascular stent grafting redemonstrated No new focal consolidation, pneumothorax, or pleural effusion. Stable cardiomediastinal silhouette. Electronically signed by: Shahrzad Zimmerman M.D. Narrative 07/04/2023 12:51 PM INVESTIGATION OFFICER EXAMINATION: 1 view chest radiograph Procedure Note Shahrzad Zimmerman MD - 07/04/2023 EXAMINATION: 1 view chest radiograph IMPRESSION: Comparison 06/16/2023 Thoracic endovascular stent grafting redemonstrated No new focal consolidation, pneumothorax, or pleural effusion. Stable cardiomediastinal silhouette. Electronically signed by: Shahrzad Zimmerman M.D. us Jonathan Borja MD IMG XR PROCED URES Final Result * Creatine kinase (CK), total (07/04/2023 12:23 PM INVESTIGATION OFFICER) CK 55 40 - 300 Units/L [facility] Blood 07/04/2023 12:2 3 PM INVESTIGATION OFFICER 07/04/2023 12:36 PM INVESTIGATION OFFICER Nagi Landa MD LAB BLOOD ORDERABLES F inal Result [facility] Department [place] [address] * eGFR (07/04/2023 12:23 PM INVESTIGATION OFFICER) eGFR 73 >=60 mL/min/1. 73 m2 [facility] Comment: Interpretive Data Reference Interval Normal ?>/= [...] interpretive data was last reviewed 2021. Blood 07/04/2023 12:2 3 PM INVESTIGATION OFFICER 07/04/2023 12:36 PM INVESTIGATION OFFICER Guille Navarro MD LAB BLOOD ORDERABLES Fin al Result [facility] Department [place] [address] * (ABNORMAL) Differential, auto (07/04/2023 12:23 PM INVESTIGATION OFFICER) Neutrophil abs 8.5(H) 1.5 - 6.5 K/cumm [facility] Imm gran abs 0.1 0.0 - 0.1 K/cumm [facility] Lymphocyte abs 1.2 0.8 - 3.3 K/cumm [facility] Monocyte abs 1.0(H) 0.2 - 0.8 K/cumm [facility] Eosinophil abs 0.1 0.0 - 0.5 K/cumm [facility] Basophil abs 0.1 0.0 - 0.1 K/cumm [facility] Neutrophil pct 78.0 % [facility] Comment: Interpretive Data Percent cell count reference ranges are not reported, since discordance with absolute values may lead to misinterpretation of CBC data. Current Interpretive Data was last revised on 2017. Imm gran pct 0.9 % [facility] Comment: Interpretive Data Percent cell count reference ranges are not reported, since discordance with absolute values may lead to misinterpretation of CBC data. Current Interpretive Data was last revised on 2017. Lymphocyte pct 10.9 % [facility] Comment: Interpretive Data Percent cell count reference ranges are not reported, since discordance with absolute values may lead to misinterpretation of CBC data. Current Interpretive Data was last revised on 2017. Monocyte pct 8.7 % [facility] Comment: Interpretive Data Percent cell count reference ranges are not reported, since discordance with absolute values may lead to misinterpretation of CBC data. Current Interpretive Data was last revised on 2017. Eosinophil pct 0.9 % [facility] Comment: Interpretive Data Percent cell count reference ranges are not reported, since discordance with absolute values may lead to misinterpretation of CBC data. Current Interpretive Data was last revised on 2017. Basophil pct 0.6 % [facility] Comment: Interpretive Data Percent cell count reference ranges are not reported, since discordance with absolute values may lead to misinterpretation of CBC data. Current Interpretive Data was last revised on 2017. Blood 07/04/2023 12:2 3 PM INVESTIGATION OFFICER 07/04/2023 12:36 PM INVESTIGATION OFFICER Guille Navarro MD LAB BLOOD ORDERABLES Fin al Result Performing Organization Address [facility] de Phone Number [facility] Department [place] [address] * Lactate (07/04/2023 12:23 PM INVESTIGATION OFFICER) Lactate 0.8 0.7 - 2.0 mmol/L [facility] Blood 07/04/2023 12:2 3 PM INVESTIGATION OFFICER 07/04/2023 12:36 PM INVESTIGATION OFFICER Jonathan Borja MD LAB BLOOD ORD ERABLES Final Result Performing Organization Address [facility] de Phone Number [facility] Department [place] [address] * Troponin I high-sensitivity series (baseline, 2hr, 4hr, 6hr) (07/04/2023 12:23 PM INVESTIGATION OFFICER) Trop I hs <4 <=35 ng/L [facility] Comment: Interpretive Data For further hscTnI resources including the diagnostic algorithm and an aid in interpretation, copy and paste this link: [email or web address] Current Interpretive Data last revised 2019. Blood 07/04/2023 12:2 3 PM INVESTIGATION OFFICER 07/04/2023 12:36 PM INVESTIGATION OFFICER Nagi Landa MD LAB BLOOD ORDERABLES F inal Result Performing Organization Address [facility] Co de Phone Number [facility] Department [place] [address] * Lipase (07/04/2023 12:23 PM INVESTIGATION OFFICER) Pathologist [facility] Lipase 13 10 - 99 Units/L [facility] Blood (Blood, Venous) 07/04/2023 12:23 PM INVESTIGATION OFFICER 07/04/2023 12:36 PM INVESTIGATION OFFICER Nagi Landa MD LAB BLOOD ORDERABLES F inal Result [facility] Department [place] [address] * (ABNORMAL) Comprehensive metabolic panel (07/04/2023 12:23 PM INVESTIGATION OFFICER) Pathologist [facility] Sodium 137 135 - 145 mmol/L [facility] Potassium, pl 4.2 3.3 - 4.9 mmol/L [facility] Chloride 101 97 - 110 mmol/L [facility] CO2 23 22 - 32 mmol/L [facility] Anion gap 13 2 - 15 mmol/L [facility] BUN 18 6 - 25 mg/dL [facility] Creatinine 1.33(H) 0.80 - 1.30 mg/dL [facility] Glucose 98 70 - 199 mg/dL [facility] Comment: Interpretive Data Fasting glucose >/= [...] interpretive data was last revised 2022. Calcium 10.1 8.5 - 10.3 mg/dL [facility] Bilirubin, total 0.3 0.1 - 1.2 mg/dL [facility] Protein, pl 9.8(H) 6.5 - 8.5 g/dL [facility] Albumin 4.1 3.5 - 5.0 g/dL [facility] Alk phos 105 40 - 130 Units/L [facility] ALT 13 7 - 55 Units/L [facility] AST 13 10 - 50 Units/L [facility] Blood 07/04/2023 12:2 3 PM INVESTIGATION OFFICER 07/04/2023 12:36 PM INVESTIGATION OFFICER Nagi Landa MD LAB BLOOD ORDERABLES F inal Result [facility] Department [place] [address] * (ABNORMAL) CBC with auto differential (07/04/2023 12:23 PM INVESTIGATION OFFICER) WBC 10.9(H) 3.8 - 9.9 K/cumm [facility] Hgb 9.7(L) 13.0 - 17.5 g/dL [facility] Hct 31.1(L) 38.9 - 50.3 % [facility] Plt 437(H) 150 - 400 K/cumm [facility] MPV 9.2 9.1 - 12.3 fL [facility] RBC 3.52(L) 4.30 - 5.80 M/cumm [facility] MCV 88.4 81.3 - 96.4 fL [facility] MCH 27.6 27.1 - 33.3 pg [facility] MCHC 31.2(L) 32.3 - 35.7 g/dL [facility] RDW CV 13.7 11.1 - 14.9 % [facility] RDW SD 44.0 35.7 - 48.1 fL [facility] NRBC abs 0.00 0.00 - 0.01 K/cumm [facility] Blood (Blood, Venous) 07/04/2023 12:23 PM INVESTIGATION OFFICER 07/04/2023 12:36 PM INVESTIGATION OFFICER Nagi Landa MD LAB BLOOD ORDERABLES F inal Result [facility] Department [place] [address] * ECG 12-LEAD (07/04/2023 11:53 AM INVESTIGATION OFFICER) Narrative [facility] - 07/04/2023 11:53 AM INVESTIGATION OFFICER Rosey Posada MD ? 07/04/2023 11:55 AM ECG 12 lead Date/Time: 07/04/2023 11:53 AM Performed by: Rosey Posada MD Authorized by: Guille Navarro MD ?? Rate: ??ECG rate: ??76 ??ECG rate assessment: normal ?? Rhythm: ??Rhythm: sinus rhythm ?? Ectopy: ??Ectopy: none ?? QRS: ??QRS axis: ??Normal ??QRS intervals: ??Normal Conduction: ??Conduction: normal ?? ST segments: ??ST segments: ??Normal T waves: ??T waves: flattening and inverted ?Flattening: ??II ??Inverted: ??III, aVF, V6 and V5 Other findings: ??Other findings: LVH ?? Previous ECG: ??Previous ECG: ??Compared to current ??Date of previous ECG: ??07/02/2023 Interpretation: ??Interpretation: No significant change ?? Recommended Follow-up: ??Recommended follow up: further workup in the ED ?? Procedure Note Rosey Posada MD - 07/04/2023 11:53 AM CST Procedure ECG 12 lead Date/Time: 07/04/2023 11:53 AM Performed by: Rosey Posada MD Authorized by: Guille Navarro MD Rate: ECG rate: 76 ECG rate assessment: normal Rhythm: Rhythm: sinus rhythm Ectopy: Ectopy: none QRS: QRS axis: Normal QRS intervals: Normal Conduction: Conduction: normal ST segments: ST segments: Normal T waves: T waves: flattening and inverted Flattening: II Inverted: III, aVF, V6 and V5 Other findings: Other findings: LVH Previous ECG: Previous ECG: Compared to current Date of previous EC07/02/2023 Interpretation: Interpretation: No significant change Recommended Follow-up: Recommended follow up: further workup in the ED Rosey Posada MD 07/04/23 [id number] us Nagi Landa MD ECG ORDERABLES Final Result [facility] documented in this encounter Visit Diagnoses Diagnosis Ureteral stone- Primary Calculus of ureter Left flank pain Abdominal pain, unspecified site Ureteral stone Calculus of ureter Left flank pain Abdominal pain, unspecified site Ureteral stone Calculus of ureter documented in this encounter Admitting Diagnoses Diagnosis Ureteral stone Calculus of ureter Left flank pain Abdominal pain, unspecified site documented in this encounter Administered Medications Inactive Administered Medications - up to 3 most recent administrations Medication Order MAR Action Action Date Dose Rate Site acetaminophen (TYLENOL) tablet 1,000 mg 1,000 mg, oral, Every 6 hours scheduled, First dose (after last modification) on Tue07/05/23 at 1800, Indications: PainIndications:Pain Given 07/08/2023 12:12 PM INVESTIGATION OFFICER 1,000 mg Given 07/08/2023 5:38 AM INVESTIGATION OFFICER 1,000 mg Given 07/08/2023 12:10 AM INVESTIGATION OFFICER 1,000 mg albuterol HFA (PROVENTIL HFA,VENTOLIN HFA,PROAIR HFA) 90 mcg/actuation inhaler 2 puff 2 puff, inhalation, Every 4 hours PRN (entertainment & media correspondent), wheezing, Starting on Tue07/04/23 at 2150 amLODIPine (NORVASC) tablet 10 mg 10 mg, oral, Daily, First dose on Tue07/05/23 at 0900 Given 07/08/2023 8:20 AM INVESTIGATION OFFICER 10 mg Given 07/07/2023 8:47 AM INVESTIGATION OFFICER 10 mg Given 07/06/2023 8:37 AM INVESTIGATION OFFICER 10 mg aspirin chewable tablet 81 mg 81 mg, oral, Daily, First dose on Tue07/05/23 at 0900 Given 07/08/2023 8:20 AM INVESTIGATION OFFICER 81 mg Given 07/07/2023 8:46 AM INVESTIGATION OFFICER 81 mg Given 07/06/2023 8:38 AM INVESTIGATION OFFICER 81 mg calcium carbonate (TUMS) chewable tablet 500 mg 500 mg (200 mg of elemental calcium), oral, 3 times daily PRN, indigestion, heartburn, Starting on Tue07/05/23 at 0558 carvediloL (COREG) tablet 25 mg 25 mg, oral, 2 times daily with meals (bkfst, dinner), First dose on Tue07/05/23 at 0800 Given 07/08/2023 8:19 AM INVESTIGATION OFFICER 25 mg Given 07/07/2023 5:20 PM INVESTIGATION OFFICER 25 mg Given 07/07/2023 8:46 AM INVESTIGATION OFFICER 25 mg cefepime (MAXIPIME) 1,000 mg/10 mL in sterile water (premix) 1,000 mg 1,000 mg, intravenous, at 120 mL/hr, Administer over 5 Minutes, Every 12 hours scheduled, First dose on Tue07/05/23 at 1315, Indications: Urinary Tract/Genitourinary InfectionIndications:Urinary Tract/Genitourinary Infection New Bag 07/08/2023 12:11 PM INVESTIGATION OFFICER 1,000 mg 120 mL/hr New Bag 07/08/2023 12:10 AM INVESTIGATION OFFICER 1,000 mg 120 mL/hr New Bag 07/07/2023 12:46 PM INVESTIGATION OFFICER 1,000 mg 120 mL/hr enoxaparin (LOVENOX) syringe 40 mg 40 mg, subcutaneous, Daily (for enoxaparin), First dose on Tue07/05/23 at 2100, Indications: Deep Vein Thrombosis PreventionIndications:Deep Vein Thrombosis Prevention Given 07/07/2023 9:20 PM INVESTIGATION OFFICER 40 mg Left Lower Abdomen Given 07/06/2023 8:15 PM INVESTIGATION OFFICER 40 mg Le ft Upper Arm Given 07/05/2023 9:26 PM INVESTIGATION OFFICER 40 mg Le ft Lower Abdomen gabapentin (NEURONTIN) capsule 300 mg 300 mg, oral, 3 times daily, First dose on Tue07/04/23 at 2230 Given 07/08/2023 8:19 AM INVESTIGATION OFFICER 300 mg Given 07/07/2023 9:23 PM INVESTIGATION OFFICER 300 mg Given 07/07/2023 5:13 PM INVESTIGATION OFFICER 300 mg hydrALAZINE (APRESOLINE) tablet 50 mg 50 mg, oral, 3 times daily, First dose on Tue07/04/23 at 2300, Indications: hypertensionIndications:hypertension Given 07/08/2023 8:37 AM INVESTIGATION OFFICER 50 mg Given 07/07/2023 9:24 PM INVESTIGATION OFFICER 50 mg Given 07/07/2023 5:19 PM INVESTIGATION OFFICER 50 mg hyoscyamine (LEVSIN) sublingual tablet 125 mcg 125 mcg, sublingual, Every 6 hours, First dose on Tue07/08/23 at 1130, Indications: Urinary IncontinenceIndications:Urinary Incontinence Given 07/08/2023 12:34 PM INVESTIGATION OFFICER 125 mcg ketorolac (TORADOL) 15 mg/mL injection 15 mg 15 mg, intravenous, Every 6 hours scheduled, First dose on Tue07/07/23 at 1200, For 6 doses Given 07/08/2023 12:11 PM INVESTIGATION OFFICER 15 mg Given 07/08/2023 5:39 AM INVESTIGATION OFFICER 15 mg Given 07/08/2023 12:10 AM INVESTIGATION OFFICER 15 mg methocarbamoL (ROBAXIN) tablet 750 mg 750 mg, oral, 3 times daily, First dose (after last modification) on Tue07/07/23 at 2100 Given 07/08/2023 8:20 AM INVESTIGATION OFFICER 750 mg Given 07/07/2023 9:20 PM INVESTIGATION OFFICER 750 mg ondansetron (ZOFRAN) injection 4 mg 4 mg, intravenous, Administer over 2 Minutes, Every 6 hours PRN, nausea, vomiting, 1 st line, Starting on Tue07/05/23 at 0954 Given 07/07/2023 10:18 AM INVESTIGATION OFFICER 4 mg Given 07/07/2023 3:28 AM INVESTIGATION OFFICER 4 mg Given 07/06/2023 8:30 PM INVESTIGATION OFFICER 4 mg oxyBUTYnin XL (DITROPAN-XL) extended release tablet 10 mg 10 mg, oral, Daily, First dose on Tue07/06/23 at 1200, Do not crush, chew, cut, dissolve, open or otherwise manipulate tablet/capsule. Given 07/08/2023 8:20 AM INVESTIGATION OFFICER 10 mg Given 07/07/2023 8:47 AM INVESTIGATION OFFICER 10 mg Given 07/06/2023 12:06 PM INVESTIGATION OFFICER 10 mg oxyCODONE (ROXICODONE) tablet 5 mg 5 mg, oral, Every 4 hours PRN, 1st line for pain, Starting on Tue07/06/23 at 0648, May administer 1 hour after 1st line agent for uncontrolled or increasing pain. , Indications: PainIndications:Pain Given 07/08/2023 2:36 PM INVESTIGATION OFFICER 5 mg Given 07/08/2023 9:59 AM INVESTIGATION OFFICER 5 mg Given 07/07/2023 4:51 PM INVESTIGATION OFFICER 5 mg phenazopyridine (PYRIDIUM) tablet 200 mg 200 mg, oral, 3 times daily with meals, First dose on Tue07/05/23 at 1200, May discolor urine and sclera. Can stain undergarments and contact lenses. Given 07/08/2023 12:12 PM INVESTIGATION OFFICER 200 mg Given 07/08/2023 8:20 AM INVESTIGATION OFFICER 200 mg Given 07/07/2023 5:13 PM INVESTIGATION OFFICER 200 mg prochlorperazine (COMPAZINE) injection 5 mg 5 mg, intravenous, Administer over 2 Minutes, Every 6 hours PRN, nausea, vomiting, 2nd line, Starting on Tue07/05/23 at 0955 Given 07/07/2023 6:34 AM INVESTIGATION OFFICER 5 mg Given 07/07/2023 12:40 AM INVESTIGATION OFFICER 5 mg Given 07/06/2023 8:37 AM INVESTIGATION OFFICER 5 mg ramelteon (ROZEREM) tablet 8 mg 8 mg, oral, Nightly PRN, sleep, Starting on Tue07/05/23 at 0558, Indications: Sleep-Onset InsomniaIndications:Sleep-Onset Insomnia Given 07/07/2023 9:24 PM INVESTIGATION OFFICER 8 m g senna-docusate (PERICOLACE) 8.6-50 mg per tablet 2 tablet 2 tablet, oral, 2 times daily, First dose on Tue07/04/23 at 2230 Given 07/08/2023 8:19 AM INVESTIGATION OFFICER 2 tablets Given 07/07/2023 9:20 PM INVESTIGATION OFFICER 2 tablets Given 07/07/2023 8:45 AM INVESTIGATION OFFICER 2 tablets simethicone (MYLICON) chewable tablet 80 mg 80 mg, oral, 2 times daily PRN, flatulence, other, gas pain, Starting on Tue07/05/23 at 0558 Given 07/06/2023 8:37 AM INVESTIGATION OFFICER 80 mg sodium chloride 0.9% flush 0.5-20 mL 0.5-20 mL, intra-catheter, Every 8 hours scheduled, First dose on Tue07/04/23 at 2230, Flush volume based on line type and size. Given 07/08/2023 12:12 PM INVESTIGATION OFFICER 1 0 mL Given 07/08/2023 5:39 AM INVESTIGATION OFFICER 10 mL Given 07/07/2023 12:47 PM INVESTIGATION OFFICER 10 mL sodium chloride 0.9% flush 0.5-20 mL 0.5-20 mL, intra-catheter, As needed, line care, Starting on Tue07/04/23 at 2147, Flush volume based on line type and size. Flush before and after each use. Given 07/07/2023 3:28 AM INVESTIGATION OFFICER 10 mL Given 07/06/2023 10:38 AM INVESTIGATION OFFICER 10 mL sodium chloride 0.9% irrigation As needed, Starting on Tue07/04/23 at 1901, Intra-Op Given 07/04/2023 7:02 PM INVESTIGATION OFFICER 3,000 mL Given 07/04/2023 7:01 PM INVESTIGATION OFFICER 1,000 mL tamsulosin (FLOMAX) extended release capsule 0.4 mg 0.4 mg, oral, Daily with dinner, First dose on Tue07/05/23 at 1800, Do not crush, chew, cut, dissolve, open or otherwise manipulate tablet/capsule. Given 07/07/2023 5:12 PM INVESTIGATION OFFICER 0.4 mg Given 07/06/2023 5:51 PM INVESTIGATION OFFICER 0.4 mg Given 07/05/2023 6:44 PM INVESTIGATION OFFICER 0.4 mg vancomycin 1500 mg/515 mL in sodium chloride 0.9% (premix) 1,500 mg 1,500 mg (rounded from 1,462.5 mg = 15 mg/kg ? 97.5 kg), intravenous, Administer over 90 Minutes, Every 12 hours, First dose on Tue07/05/23 at 1400, Indications: Urinary Tract/Genitourinary InfectionIndications:Urinary Tract/Genitourinary Infection New Bag 07/08/2023 2:11 AM INVESTIGATION OFFICER 1,500 mg New Bag 07/07/2023 2:39 PM INVESTIGATION OFFICER 1,500 mg New Bag 07/07/2023 2:45 AM INVESTIGATION OFFICER 1,500 mg documented in this encounter Discontinued Medications Medication Sig Discontinue Reason Start Date End Da te tamsulosin (FLOMAX) 0.4 mg extended release capsule Take 1 capsule (0.4 mg total) by mouth daily with dinner 06/25/2023 07/08/2023 methocarbamoL (ROBAXIN) 500 mg tablet Take 1.5 tablets (750 mg total) by mouth 3 (three) times a day as needed for muscle spasms for up to 90 doses Stop Taking at Discharge 06/25/2023 07/08/2023 documented as of this encounter Active and Recently Administered Medications Times are shown in INVESTIGATION OFFICER. Scheduled Medication Order 07/06/2023 07/07/2023 07/08/2023 acetaminophen (TYLENOL) tablet 1,000 mg 1,000 mg, oral, Every 6 hours scheduled, First dose (after last modification) on Tue07/05/23 at 1800, Indications: Pain 0022 (Given - Provider: Harriett Ordonez)0616 (Given - Provider: Harriett Ordonez)1208 (Given - Provider: Sury Franklin RN)1751 (Given - Provider: Sury Franklin RN) 0025 (Given - Provider: Harriett Ordonez)0639 (Given - Provider: Harriett Ordonez)1135 (Given - Provider: Alicia Good RN)1712 (Given - Provider: Alicia Good RN) 0010 (Given - Provider: Navin Ventura RN)0538 (Given - Provider: Navin Ventura RN)1212 (Given - Provider: Mariposa Harris RN) amLODIPine (NORVASC) tablet 10 mg 10 mg, oral, Daily, First dose on Tue07/05/23 at 0900 0837 (Given - Provider: Sury Franklin RN) 0847 (Given - Provider: Alicia Good RN) 0820 (Given - Provider: Mariposa Harris RN) aspirin chewable tablet 81 mg 81 mg, oral, Daily, First dose on Tue07/05/23 at 0900 0838 (Given - Provider: Sury Franklin RN) 0846 (Given - Provider: Alicia Good RN) 0820 (Given - Provider: Mariposa Harris RN) carvediloL (COREG) tablet 25 mg 25 mg, oral, 2 times daily with meals (bkfst, dinner), First dose on Tue07/05/23 at 0800 0837 (Given - Provider: Sruy Franklin RN)1751 (Given - Provider: Sury Franklin RN) 0846 (Given - Provider: Alicia Good RN)1720 (Given - Provider: Alicia Good RN) 0819 (Given - Provider: Mariposa Harris RN) cefepime (MAXIPIME) 1,000 mg/10 mL in sterile water (premix) 1,000 mg 1,000 mg, intravenous, at 120 mL/hr, Administer over 5 Minutes, Every 12 hours scheduled, First dose on Tue07/05/23 at 1315, Indications: Urinary Tract/Genitourinary Infection 0022 (New Bag - Provider: Harriett Ordonez)0030 (Stopped - Provider: Harriett Ordonez)1206 (New Bag - Provider: Sury Franklin RN)1211 (Stopped - Provider: Sury Franklin RN) 0025 (New Bag - Provider: Harriett Ordonez)0034 (Stopped - Provider: Harriett Ordonez)1246 (New Bag - Provider: Alicia Good RN)1252 (Stopped - Provider: Alicia Good RN) 0010 (New Bag - Provider: Navin Ventura RN)0015 (Stopped - Provider: Navin Ventura RN)1211 (New Bag - Provider: Mariposa Harris RN)1216 (Due: Stopped - Provider: Mariposa Harris RN) enoxaparin (LOVENOX) syringe 40 mg 40 mg, subcutaneous, Daily (for enoxaparin), First dose on Tue07/05/23 at 2100, Indications: Deep Vein Thrombosis Prevention 2014 (Given - Provider: Harriett Ordonez) 2119 (Given - Provider: Navin Ventura RN) gabapentin (NEURONTIN) capsule 300 mg 300 mg, oral, 3 times daily, First dose on Tue07/04/23 at 2230 0837 (Given - Provider: Sury Franklin RN)1601 (Given - Provider: Sury Franklin RN)2249 (Given - Provider: Harriett Ordonez) 0847 (Given - Provider: Alicia Good RN)1713 (Given - Provider: Alicia Good RN)2123 (Given - Provider: Navin Ventura RN) 0819 (Given - Provider: Mariposa Harris RN) hydrALAZINE (APRESOLINE) tablet 50 mg 50 mg, oral, 3 times daily, First dose on Tue07/04/23 at 2300, Indications: hypertension 0838 (Given - Provider: Sury Franklin RN)1601 (Given - Provider: Sury Franklin RN)2250 (Given - Provider: Harriett Ordonez) 0846 (Given - Provider: Alicia Good RN)1719 (Given - Provider: Alicia Good RN)2124 (Given - Provider: Navin Ventura RN) 0837 (Given - Provider: Mariposa Harris RN) hyoscyamine (LEVSIN) injection 0.25 mg (CANCELED) 0.25 mg, intravenous, Administer over 1 Minutes, Every 6 hours scheduled, First dose (after last modification) on Tue07/07/23 at 1800 1713 (Given - Provider: Alicia Good RN) 0010 (Given - Provider: Navin Ventura RN)0539 (Given - Provider: Navin Ventura RN) hyoscyamine (LEVSIN) sublingual tablet 125 mcg 125 mcg, sublingual, Every 6 hours, First dose on Tue07/08/23 at 1130, Indications: Urinary Incontinence 1234 (Given - Provider: Mariposa Harris RN) ketorolac (TORADOL) 15 mg/mL injection 15 mg 15 mg, intravenous, Every 6 hours scheduled, First dose on Tue07/07/23 at 1200, For 6 doses 1136 (Given - Provider: Alicia Good RN)1713 (Given - Provider: Alicia Good RN) 0010 (Given - Provider: Navin Ventura RN)0539 (Given - Provider: Navin Ventura RN)1211 (Given - Provider: Mariposa Harris RN) methocarbamoL (ROBAXIN) tablet 750 mg 750 mg, oral, 3 times daily, First dose (after last modification) on Tue07/07/23 at 2100 2120 (Given - Provider: Navin Ventura RN) 0820 (Given - Provider: Mariposa Harris RN) oxyBUTYnin XL (DITROPAN-XL) extended release tablet 10 mg 10 mg, oral, Daily, First dose on Tue07/06/23 at 1200, Do not crush, chew, cut, dissolve, open or otherwise manipulate tablet/capsule. 1206 (Given - Provider: Sury Franklin RN) 0847 (Given - Provider: Alicia Good RN) 0820 (Given - Provider: Mariposa Harris RN) phenazopyridine (PYRIDIUM) tablet 200 mg 200 mg, oral, 3 times daily with meals, First dose on Tue07/05/23 at 1200, May discolor urine and sclera. Can stain undergarments and contact lenses. 0800 (Dose Auto Held - Provider: America Rowe MD)1155 (Unheld by Provider - Provider: Gisele Courtney NP)1206 (Given - Provider: Sury Franklin RN)1751 (Given - Provider: Sury Franklin RN) 0846 (Given - Provider: Alicia Good RN)1246 (Given - Provider: Alicia Good RN)1713 (Given - Provider: Alicia Good RN) 0820 (Given - Provider: Mariposa Harris RN)1212 (Given - Provider: Mariposa Harris RN) potassium chloride ER (KLOR-CON) extended release tablet 30 mEq (COMPLETED) 30 mEq, oral, Every 4 hours, First dose on Tue07/07/23 at 0300, For 2 doses, Total dose = 60 mEq Tablets should not be crushed, chewed, dissolved, or otherwise manipulated. Capsules may be opened and sprinkled on a spoonful of applesauce or pudding, but the contents of the capsule should not be crushed or chewed. 0245 (Given - Provider: Harriett Ordonez)0847 (Given - Provider: Alicia Good RN - Comment: pt. wanted little later related to nausea) senna-docusate (PERICOLACE) 8.6-50 mg per tablet 2 tablet 2 tablet, oral, 2 times daily, First dose on Tue07/04/23 at 2230 0838 (Given - Provider: Sury Franklin RN)2032 (Not Given - Provider: Harriett Ordonez - Reason: Patient/family refused) 0845 (Given - Provider: Alicia Good RN)2120 (Given - Provider: Navin Ventura RN) 0819 (Given - Provider: Mariposa Harris RN) sodium chloride 0.9% flush 0.5-20 mL 0.5-20 mL, intra-catheter, Every 8 hours scheduled, First dose on Tue07/04/23 at 2230, Flush volume based on line type and size. 0617 (Given - Provider: Harriett Ordonez)1605 (Given - Provider: Sury Franklin RN)2252 (Not Given - Provider: Harriett Ordonez - Reason: IV Infusing) 0643 (Given - Provider: Harriett Ordonez)1247 (Given - Provider: Alicia Good RN)2245 (Not Given - Provider: Navin Ventura RN - Reason: IV Infusing) 0539 (Given - Provider: Navin Ventura RN)1212 (Given - Provider: Mariposa Harris RN) tamsulosin (FLOMAX) extended release capsule 0.4 mg 0.4 mg, oral, Daily with dinner, First dose on Tue07/05/23 at 1800, Do not crush, chew, cut, dissolve, open or otherwise manipulate tablet/capsule. 1751 (Given - Provider: Sury Franklin RN) 1712 (Given - Provider: Alicia Good RN) vancomycin 1500 mg/515 mL in sodium chloride 0.9% (premix) 1,500 mg 1,500 mg (rounded from 1,462.5 mg = 15 mg/kg ? 97.5 kg), intravenous, Administer over 90 Minutes, Every 12 hours, First dose on Tue07/05/23 at 1400, Indications: Urinary Tract/Genitourinary Infection 0254 (New Bag - Provider: Harriett Ordonez)0456 (Stopped - Provider: Harriett Ordonez)1601 (New Bag - Provider: Sury Franklin RN)1730 (Stopped - Provider: Sury Franklin RN) 0245 (New Bag - Provider: Harriett Ordonez)0415 (Stopped - Provider: Harriett Ordonez)1439 (New Bag - Provider: Alicia Good RN)1714 (Stopped - Provider: Alicia Good RN) 0211 (New Bag - Provider: Navin Ventura RN)0341 (Stopped - Provider: Navin Ventura RN)1400 (Due - Provider: Paris Garcia [facility]) Continuous Medication Order 07/06/2023 07/07/2023 07/08/2023 Lactated Ringer's (LR) infusion (CANCELED) 125 mL/hr, intravenous, Continuous, Starting on Tue07/04/23 at 2100, Phase I & Post-op Floor 0157 (New Bag - Provider: Kelsey Gonzalez RN)1214 (New Bag - Provider: Sury Franklin RN)2249 (New Bag - Provider: Harriett Ordonez) 0856 (New Bag - Provider: Alicia Good RN)2118 (New Bag - Provider: Navin Ventura RN) 0539 (New Bag - Provider: Navin Ventura RN)1053 (Stopped - Provider: Mariposa Harris RN) PRN Medication Order 07/06/2023 07/07/2023 07/08/2023 albuterol HFA (PROVENTIL HFA,VENTOLIN HFA,PROAIR HFA) 90 mcg/actuation inhaler 2 puff 2 puff, inhalation, Every 4 hours PRN (entertainment & media correspondent), wheezing, Starting on Tue07/04/23 at 2150 calcium carbonate (TUMS) chewable tablet 500 mg 500 mg (200 mg of elemental calcium), oral, 3 times daily PRN, indigestion, heartburn, Starting on Tue07/05/23 at 0558 Carrier Fluids for Secondary Infusion - 0.9% Sodium Chloride 30 mL, intravenous, As needed, For priming tubing and/or flushing, Starting on Tue07/04/23 at 2147, 0-250 ml/hr to flush line after IV infusions when no maintenance IV ordered. Infuse 30mL at the same rate as the secondary infusion. Run as primary IV, not intended for KVO. diazePAM (VALIUM) injection 2.5 mg (COMPLETED) 2.5 mg, intravenous, Administer over 1 Minutes, Once PRN Procedure, anxiety, Starting on Tue07/06/23 at 0705, For 1 dose 0716 (Given - Provider: Jacque Maciel RN) HYDROmorphone (DILAUDID) injection 0.2 mg (CANCELED) 0.2 mg, intravenous, Administer over 2 Minutes, Every 4 hours PRN, 2nd line for pain, Starting on Tue07/06/23 at 0647 0702 (Given - Provider: Jacque Maciel RN) HYDROmorphone (DILAUDID) injection 0.5 mg (CANCELED) 0.5 mg, intravenous, Administer over 2 Minutes, Every 2 hours PRN, 2nd line for pain, breakthrough pain, Starting on Tue07/06/23 at 0715 0716 (Override Pull - Provider: Jacque Maciel RN)1037 (Given - Provider: Sury Franklin RN)1254 (Given - Provider: Sury Franklin RN)1750 (Given - Provider: Sury Franklin RN)2150 (Given - Provider: Harriett Ordonez) 0328 (Given - Provider: Jacque Maciel RN)0836 (Given - Provider: Alicia Good RN)1246 (Given - Provider: Alicia Good RN)1444 (Given - Provider: Alicia Good RN)1849 (Given - Provider: Alicia Good, BRIA)2117 (Given - Provider: Navin Ventura, BRIA) 0414 (Given - Provider: Idalia Travis, BRIA)0819 (Given - Provider: Mariposa Harris, BRIA) hyoscyamine (LEVSIN) injection 0.25 mg (CANCELED) 0.25 mg, intravenous, Administer over 1 Minutes, Every 6 hours PRN, bladder spasms, Starting on Tue07/06/23 at 1125 1010 (Given - Provider: Alicia Good RN) ioversoL (OPTIRAY 350) injection 100 mL (COMPLETED) 100 mL, intravenous, Once in imaging, contrast, Starting on Tue07/06/23 at 0738, For 1 dose 0744 (Contrast Given - Provider: Dc Whitmore, RT) methocarbamoL (ROBAXIN) tablet 750 mg (CANCELED) 750 mg, oral, 3 times daily PRN, muscle spasms, Starting on Tue07/04/23 at 2147 0029 (Given - Provider: Harriett Ordonez)0838 (Given - Provider: Sury Franklin RN) 1444 (Given - Provider: Alicia Good, BRIA) ondansetron (ZOFRAN) injection 4 mg 4 mg, intravenous, Administer over 2 Minutes, Every 6 hours PRN, nausea, vomiting, 1 st line, Starting on Tue07/05/23 at 0954 0708 (Due)2030 (Given - Provider: Harriett Ordonez) 0328 (Given - Provider: Jacque Maciel RN)1018 (Given - Provider: Alicia Good RN) oxyBUTYnin (DITROPAN) tablet 5 mg (CANCELED) 5 mg, oral, Every 6 hours PRN, bladder spasms, Starting on Tue07/04/23 at 2147, Indications: Bladder Hyperactivity 0837 (Given - Provider: Sury Franklin RN) oxyCODONE (ROXICODONE) tablet 5 mg (CANCELED) 5 mg, oral, Every 4 hours PRN, 2nd line for pain, Starting on Tue07/04/23 at 2147, May administer 1 hour after 1st line agent for uncontrolled or increasing pain. , Indications: Pain 0254 (Given - Provider: Harriett Ordonez) oxyCODONE (ROXICODONE) tablet 5 mg 5 mg, oral, Every 4 hours PRN, 1st line for pain, Starting on Tue07/06/23 at 0648, May administer 1 hour after 1st line agent for uncontrolled or increasing pain. , Indications: Pain 0837 (Given - Provider: Sury Franklin RN)1601 (Given - Provider: Sury Franklin RN)2015 (Given - Provider: Harriett Ordonez) 0025 (Given - Provider: Harriett Ordonez)0639 (Given - Provider: Harriett Ordonez)1135 (Given - Provider: Alicia Good RN)1651 (Given - Provider: Patricia Liao, BRIA) 0959 (Given - Provider: Mariposa Harris, BRIA)1436 (Given - Provider: Mariposa Harris, BRIA) prochlorperazine (COMPAZINE) injection 5 mg 5 mg, intravenous, Administer over 2 Minutes, Every 6 hours PRN, nausea, vomiting, 2nd line, Starting on Tue07/05/23 at 0955 0308 (Given - Provider: Harriett Ordonez)0837 (Given - Provider: Sury Franklin RN)2031 (Not Given - Provider: Harriett Ordonez - Reason: Other - Comment: given compazine) 0040 (Given - Provider: Harriett Ordonez)0634 (Given - Provider: Harriett Ordonez) ramelteon (ROZEREM) tablet 8 mg 8 mg, oral, Nightly PRN, sleep, Starting on Tue07/05/23 at 0558, Indications: Sleep-Onset Insomnia 2123 (Given - Provider: Navin Ventura, BRIA) simethicone (MYLICON) chewable tablet 80 mg 80 mg, oral, 2 times daily PRN, flatulence, other, gas pain, Starting on Tue07/05/23 at 0558 0837 (Given - Provider: Sury Franklin RN) sodium chloride 0.9% flush 0.5-20 mL 0.5-20 mL, intra-catheter, As needed, line care, Starting on Tue07/04/23 at 2147, Flush volume based on line type and size. Flush before and after each use. 1038 (Given - Provider: Sury Franklin RN) 0328 (Given - Provider: Jacque Maciel RN) documented in this encounter Orders Medications Ordered That Gerardo ht Not Have Been Administered Count Last Ordered Date First Ordered Date hyoscyamine (LEVSIN) subling ual tablet 125 mcg 1 07/08/2023 hyoscyamine (LEVSIN) injection 0.25 mg 2 07/06/2023 ketorolac (TORADOL) 15 mg/mL injection 15 mg 2 07/07/2023 07/04/2023 methocarbamoL (ROBAXIN) tablet 750 mg 2 12/202307/04/2023 potassium chloride ER (KLOR- CON) extended release tablet 30 mEq 1 07/07/2023 diazePAM (VALIUM) injection 2.5 mg 1 2023 HYDROmorphone (DILAUDID) injection 0.2 mg 2 07/06/2023 07/05/2023 HYDROmorphone (DILAUDID) injection 0.5 mg 3 07/06/2023 07/04/2023 ioversoL (OPTIRAY 350) injection 100 mL 1 0 07/06/2023 oxyBUTYnin XL (DITROPAN-XL) extended release tablet 10 mg 1 07/06/2023 oxyCODONE (ROXICODONE) tablet 5 mg 2 202307/04/2023 acetaminophen (TYLENOL) tablet 1,000 mg 2 0 07/05/2023 07/04/2023 calcium carbonate (TUMS) august wable tablet 500 mg 1 07/05/2023 cefepime (MAXIPIME) 1,000 mg /10 mL in sterile water (premix) 1,000 mg 1 07/05/2023 enoxaparin (LOVENOX) syringe 40 mg 1 2023 ondansetron (ZOFRAN) injection 4 mg 4 07/0507/04/2023 phenazopyridine (PYRIDIUM) tablet 200 mg 1 07/05/2023 prochlorperazine (COMPAZINE) injection 5 mg 2 07/05/2023 ramelteon (ROZEREM) tablet 8 mg 1 simethicone (MYLICON) chewab le tablet 80 mg 1 07/05/2023 vancomycin 1500 mg/515 mL in sodium chloride 0.9% (premix) 1,500 mg 1 07/05/2023 albuterol HFA (PROVENTIL HFA ,VENTOLIN HFA,PROAIR HFA) 90 mcg/actuation inhaler 2 puff 2 07/04/2023 amLODIPine (NORVASC) tablet 10 mg 1 024 aspirin chewable tablet 81 mg 1 07/04/2023 Carrier Fluids for Secondary Infusion - 0.9% Sodium Chloride 1 07/04/2023 carvediloL (COREG) tablet 25 mg 1 diphenhydrAMINE (BENADRYL) 5 0 mg/mL injection 12.5 mg 1 07/04/2023 fentaNYL (SUBLIMAZE) preserv ative free injection 100 mcg 1 07/04/2023 gabapentin (NEURONTIN) capsule 300 mg 1 09/2023 haloperidol (HALDOL) injection 1 mg 1 07/04 hydrALAZINE (APRESOLINE) tablet 50 mg 1 09/2023 HYDROmorphone (DILAUDID) injection 1 mg 2 0 07/04/2023 ioversoL (OPTIRAY 350) syringe 100 mL 1 09/2023 Lactated Ringer's (LR) infusion 1 ondansetron ODT (ZOFRAN-ODT) disintegrating tablet 4 mg 1 07/04/2023 oxyBUTYnin (DITROPAN) tablet 5 mg 1 024 senna-docusate (PERICOLACE) 8.6-50 mg per tablet 2 tablet 1 07/04/2023 sodium chloride 0.9% flush 0.5-20 mL 2 09/2023 sodium chloride 0.9% infusion 1 07/04/2023 tamsulosin (FLOMAX) extended release capsule 0.4 mg 2 07/04/2023 Lab Orders Without Results Count Last Ordered D ate First Ordered Date CREATINE KINASE (CK), TOTAL 1 07/04/2023 General Supply Count Last Ordered Date First Or dered Date WALKER W/ WHEELS (LESS THAN 350 LBS.) 1 12/2023 Nursing Count Last Ordered Date First Orde red Date FOLLOW UP WITH DEPARTMENT 1 07/08/2023 TELEMETRY MONITORING 1 07/07/2023 Consult Count Last Ordered Date First Orde red Date IP CONSULT TO PAIN MANAGEMENT 1 07/06/2023 IP CONSULT TO NUTRITION SERVICES 1 07/05/19 24 IP CONSULT TO UROLOGY 1 07/04/2023 IP CONSULT TO VASCULAR SURGERY 1 07/04/2023 IV Count Last Ordered Date First Orde red Date SALINE LOCK IV 1 07/04/2023 Admission Count Last Ordered Date First Orde red Date ADMIT TO INPATIENT 1 07/05/2023 INITIATE OBSERVATION SERVICES 1 07/04/2023 Transfer Count Last Ordered Date First Orde red Date TRANSFER PATIENT TO NEW UNIT 1 07/04/2023 Discharge Count Last Ordered Date First Orde red Date DISCHARGE PATIENT 1 07/08/2023 CORE MEASURES Count Last Ordered Date First Ord ered Date REASON FOR NO VTE PROPHYLAXIS AT ADMISSION 1 07/04/2023 Case Request Count Last Ordered Date First Orde red Date CASE REQUEST OPERATING ROOM 1 07/04/2023 ADT Patient Update Count Last Ordered Date Firs t Ordered Date PROVIDER TREATMENT TEAM 1 07/04/2023 documented in this encounter Care Teams Slab Polisher Relationship Specialty Start Date End Date Carl Strickland MD [address] [facility] [address] [place] [address] PCP - General Internal Medicine 06/06/23 Leo Manzano MD [address] [facility] [place] [address] [place] [address] Surgeon Vascular Surgery 05/16/23 documented as of this encounter
--- OUTSIDE RECORDS SUMMARY | 2024-05-30 05:37 | XMS_ITS | Encounter Summary ---
Author Organization [facility] Address [address] [place] [address] Phone Care Team Providers Care Auto Transmission Technician Name Role Phone Leo Manzano MD Unavailable [phone] Carl Strickland MD Primary Care Provider Reason for Referral * Diagnostic Imaging (Routine) - Closed Specialty Diagnoses / Procedures Referred By Fernando alan Referred To Contact Diagnoses Nephrolithiasis Procedures US Kidney Complete Marcus Gamboa MD Phone: tel: fax: [address] [address] Referral ID Status Reason Start Date Expiration Date Visits Re quested Visits Authorized [id number] Closed 07/06/2023 08/04/2024 1 1 [facility]EWARD Encounter Details Date Type Department Care Team (Late st Contact Info) Description 07/06/2023 Orders Only [facility] Urology [address] [address] [place] [address] Marcus Gamboa MD [address] [place] [address] Nephrolithiasis (Primary Dx) Social History Tobacco Use Types Packs/Day Years Used Date Smoking Tobacco: Never Smokeless Tobacco: Never Alcohol Use Standard Drinks/Week Comments Not Currently 0 (1 standard drink = 0.6 oz pur e alcohol) [facility] Utilities Answer Date Recorded In [...] often do you attend chur ch or adventist services? More than 4 times per year 07/06/2023 Do you belong to any clubs o r organizations such as scientologist groups, unions, fraternal or athletic groups, or [...] on file Legal Sex Male 3:42 AM [employer] Gender Identity Not on file Sexual Orientation Straight 06/12/2023 11 :43 PM [employer] documented as of this encounter Plan of Treatment Scheduled Orders Name Type Priority Associated Diagnoses Orde r Schedule [facility]olink 24Hr Urine Panel Lab Routine Nephrolithiasis Expected: 07/06/2023, Expires: 07/06/2024 [facility]ol[facility] 24Hr Urine Panel Lab Routine Nephrolithiasis Expected: 07/06/2023, Expires: 07/06/2024 documented as of this encounter Results * US Kidney Complete [...] visualized. Electronically signed by: Tiffany Sosa M.D. [facility] Qiana Gamboa MD [facility] US PROCEDURES F inal Result documented in this encounter Visit Diagnoses Diagnosis Nephrolithiasis- Primary Calculus of kidney Nephrolithiasis Calculus of kidney documented in this encounter Care Teams Auto Transmission Technician Relationship Specialty Start Date End Date Carl Strickland MD [address] [facility] [address] [place] [address] PCP - General Internal Medicine 06/06/23 Leo Manzano MD [address] [facility] [address] [place] [address] Surgeon Vascular Surgery 05/16/23 documented as of this encounter
--- OUTSIDE RECORDS SUMMARY | 2024-05-30 05:37 | XMS_ITS | Encounter Summary ---
Author Organization [facility] Healthcare Address [address] [place] [address] Care Team Providers Care Polisher Aluminum Name Role Phone Leo Manzano MD Unavailable [phone] Carl Strickland MD Primary Care Provider Reason for Referral * Consultation (Routine) - Pending Review Specialty Diagnoses / Procedures Referred By Contact Referred To Contact Pain Management / Psychology Diagnoses Chronic bilateral low back pain without sciatica Meron Monterroso MD [address] [place] [address] Phone: tel: fax: [facility] [address] [facility] Medicine [address] [place] [address] Phone: tel: Referral ID Status Reason Start Date Expiration Date Visits Requested Visits Authorized [id number] Pending Review Specialty Services Required 07/02/2023 07/31/2024 1 1 Question Answer Please select the performing region: [facility] [[id number]] # of visits: 1 Comments Please contact the clinic to schedule your appointment if you do not receive a call by the end of the next business day. LOGY LABORATORY MANAGER Reason for Visit * Reason Comments Back Pain Encounter Details Date Type Department Care Team (Late st Contact Info) Description 07/02/2023 9:45 AM CYTOLOGY LABORATORY MANAGER - 07/02/2023 11:05 AM CYTOLOGY LABORATORY MANAGER [facility] Emergency Department [address] [place] [address] Cristobal Waldrop MD [address] [place] [address] Chronic bilateral low back pain without sciatica (Primary Dx); Abdominal aortic aneurysm (AAA) without rupture, unspecified part (HCC); Hypertension, unspecified type; Obesity (BMI 30-39.9) Discharge Disposition: Discharge to home or self care Social History Tobacco Use Types Packs/Day Years Used Date Smoking Tobacco: Never Smokeless Tobacco: Never Alcohol Use Standard Drinks/Week Comments Not Currently 0 (1 standard drink = 0.6 oz pur e alcohol) [facility] Utilities Answer Date Recorded In the past 12 months has [employer], gas, oil, or water [employer] threatened to shut off services in your [...] often do you attend chur ch or jew services? More than 4 times per year 06/15/2023 Do you belong to any clubs o r organizations such as evangelical groups, unions, fraternal or athletic groups, or [...] or slept in a halfway (including now)? No 06/15/2023 Personal Safety Answer Date Recorded Getting School Help Needed Denies 05/09 Sex and Gender Information Value Date Recorded Sex Assigned at Not on file Legal Sex Male 3:42 AM CYTOLOGY LABORATORY MANAGER Gender Identity Not on file Sexual Orientation Straight 06/12/2023 11 :43 PM CYTOLOGY LABORATORY MANAGER documented as of this encounter Last Filed Vital Signs Vital Sign Reading Time Taken Comments Blood Pressure 112/80 07/02/2023 10:30 AM CYTOLOGY LABORATORY MANAGER Pulse 69 07/02/2023 10:30 AM CYTOLOGY LABORATORY MANAGER Temperature 36.9 ??C (98.5 ??F) 07/02/2023 7:23 AM CS T Respiratory Rate 15 07/02/2023 10:30 AM CYTOLOGY LABORATORY MANAGER Oxygen Saturation 98% 07/02/2023 10:30 AM CYTOLOGY LABORATORY MANAGER Inhaled Oxygen Concentration - - Weight - - Height - - Body Mass Index - - documented in this encounter Discharge Instructions * Discharge Instructions* Meron Monterroso MD - 07/02/2023 10:01 AM CYTOLOGY LABORATORY MANAGER You have been evaluated in the Emergency Department today for acute on chronic lower back pain. Your evaluation did not show evidence of medical conditions requiring emergent intervention at this time, and as per our discussion, you have been referred to outpatient pain management for longitudinal evaluation of your symptoms. Please schedule an appointment with your primary care physician. Return to the Emergency Department if you experience worsening or uncontrolled pain, fevers 100.4??F or greater, recurrent vomiting, inability to tolerate food or fluids by mouth, bloody stools or vomit, black or tarry stools, or any other concerning symptoms. LOGY LABORATORY MANAGER documented in this encounter Medications at Time [...] with meals 120 tablet 4 09/09/19 24 gabapentin (NEURONTIN) 300 mg capsule Take 1 capsule (300 mg total) by mouth 3 (three) times a day 90 capsule 1 4 09/09/19 24 lidocaine (ASPERCREME) 4 % adhesive patch,medicated Place 3 patches on the skin daily 4 07/20/19 24 methocarbamoL (ROBAXIN) 500 mg tablet Take 1.5 tablets (750 mg total) by mouth 3 (three) times a day as needed for muscle spasms for up to 90 doses 30 tablet 2 4 07/08/19 24 QUEtiapine (SEROquel) 50 mg tablet Take 1 tablet (50 mg total) by mouth nightly 30 tablet 3 08/24/19 24 tamsulosin (FLOMAX) 0.4 mg extended release capsule Take 1 capsule (0.4 mg total) by mouth daily with dinner 30 capsule 1 4 07/08/19 24 documented as of this encounter Discharge Disposition Disposition Code Departure Means Destination Comment s Discharge to home or self care documented in this encounter ED Notes * Meron Monterroso MD - 07/02/2023 10:01 AM CST HPI Chief Complaint Patient presents with ??? Back Pain HPI Patient is a 33-year-old male with history of hypertension, chronic abdominal pain, mood disorder, AAA status post TEVAR on 06/05 (with history of previous TEVAR 05/02/2023) with recent discharge on 06/25/23 presenting for acute on chronic lower back pain without sciatica. Patient denies any recentfalls, trauma, he specifically denies any new symptoms such as chest pain, abdominal pain, nausea, vomiting. He denies any recent difficulty moving his bowels or with micturition. He is accompanied by mother who states the reason for the visit today was because uncontrolled back pain preventing himfrom sleep. Patient ambulatory independently. Patient History: Patient Active Problem List Diagnosis Date Noted ??? Chronic back pain 06/24/2023 ??? Pseudoaneurysm following procedure ([facility] ([facility]) 06/24/2023 ??? Infrarenal abdominal aortic aneurysm, without rupture ([facility]) 06/13/2023 ??? Polysubstance abuse ([facility]) ([facility]) 06/10/2023 ??? Moderate malnutrition (CMS/HCC) ([facility]) 06/09/2023 ??? Dissection of abdominal aorta (CMS/HCC) ([facility]) 06/03/2023 ??? Urinary retention 05/16/2023 ??? Epistaxis 05/13/2023 ??? Pneumonia 05/13/2023 ??? HTN (hypertension) 05/13/2023 ??? Dissection of thoracoabdominal aorta (CMS/HCC) ([facility]) 05/02/2023 ??? Dissection of aorta, unspecified portion of aorta ([facility]) 05/01/2023 Past Medical History: Diagnosis Date ??? Hypertension ??? Kidney stones Past Surgical History: Procedure Laterality Date ??? ABDOMINAL AORTIC ANEURYSM REPAIR History reviewed. No pertinent family history. Social History Tobacco Use ??? Smoking status: Never ??? Smokeless tobacco: Never Substance and Sexual Activity ??? Alcohol use: Not Currently ??? Drug use: Not Currently ??? Sexual activity: None Social History Social History Narrative ??? Not on file Review of Systems Review of Systems Constitutional: Negative for chills and fever. HENT: Negative for ear pain and sore throat. Eyes: Negative for pain and visual disturbance. Respiratory: Negative for cough and shortness of breath. Cardiovascular: Negative for chest pain and palpitations. Gastrointestinal: Negative for abdominal pain, diarrhea, nausea and vomiting. Genitourinary: Negative for dysuria and hematuria. Musculoskeletal: Positive for back pain. Negative for arthralgias. Skin: Negative for color change and rash. Neurological: Negative for seizures and syncope. All other systems reviewed and are negative. Physical Exam ED Triage Vitals [07/02/23 0723] Temp Pulse Resp BP SpO2 36.9 ??C (98.5 ??F) 96 18 118/66 97 % Temp src Heart Rate Source Patient Position BP Location FiO2 (%) Oral -- -- -- -- Height Height Method Weight Weight Method -- -- -- -- Physical Exam Vitals and nursing note reviewed. Constitutional: General: He is not in acute distress. Appearance: He is well-developed. He is obese. He is not ill-appearing. HENT: Head: Normocephalic and atraumatic. Right Ear: External ear normal. Left Ear: External ear normal. Nose: Nose normal. Mouth/Throat: Mouth: Mucous membranes are moist. Eyes: Extraocular Movements: Extraocular movements intact. Conjunctiva/sclera: Conjunctivae normal. Pupils: Pupils are equal, round, and reactive to light. Cardiovascular: Rate and Rhythm: Normal rate and regular rhythm. Heart sounds: No murmur heard. Pulmonary: Effort: Pulmonary effort is normal. No respiratory distress. Breath sounds: Normal breath sounds. Abdominal: Palpations: Abdomen is soft. Tenderness: There is no abdominal tenderness. Musculoskeletal: General: Tenderness present. No swelling or deformity. Cervical back: Normal range of motion and neck supple. No rigidity. Skin: General: Skin is warm and dry. Capillary Refill: Capillary refill takes less than 2 seconds. Coloration: Skin is not pale. Neurological: General: No focal deficit present. Mental Status: He is alert and oriented to person, place, and time. Comments: Ambulating independently, steadily, but with small steps secondary to pain SILT to all four extremities Psychiatric: Mood and Affect: Mood normal. [facility] Medical Decision Making Patient is a 33-year-old male with history of AAA status post TEVAR presenting with acute on chronic lower back pain. Per chart review, he was supposed to be followed by pain management but declined to this evaluation while inpatient opting instead to be discharged. Patient with nonfocal neuro examand gait steady but limited by pain. Pain is reproducible to the left lumbar, right lumbar, and midline tenderness. Patient denies any recent fall, car accidents, or other trauma. High suspicion for musculoskeletal, nontraumatic chronic lumbar back pain. Patient reports this is known lower back pain and denies any new symptoms, although infectious etiology such as spinal epidural abscess is possible, lower suspicion for this as the cause versus exacerbation of known condition. Patient without difficulty moving his bowel or bladder with no saddle anesthesia, lower concern for cauda equina. Will attempt symptom management with multimodal pain including lidocaine patch, Tylenol, muscle relaxer. Plan for discharge with referral to pain management. Amount and/or Complexity of Data Reviewed ECG/medicine tests: ordered. Risk OTC drugs. Prescription drug management. Attending Summary of Care ED Course as of 07/02/23 1111 Time: 07/02 0946 Comment: Record review: discharge summary 06/25/23. Was admitted for impulse control/anti-hypertensive titration. Had CTA C/A/P with no acute findings and MRI total spine which was negative. Reviewed communication notes with Dr. Abarca in [facility]; recently developed cough and lip swelling and was instructed to stop lisinopril. By: Cristobal Waldrop MD Time: 07/02 0918 Comment: ED attending note: 33 year old man with a history of AAA s/p TEVAR presents with low back pain. States this is worsening of same pain he was experiencing during last admission. Was admitted 06/13-06/25 for low back pain and uncontrolled BP; had extensive workup including CTA C/A/P (no acute changes) and total spine MRI. Here reports only worsening of same previously evaluated lower back pain; no abdominal pain, no other complaints. Abdomen non-tender, neurologically intact, vital signs within parameters per last notes. Given his extensive recent evaluation, this likely represents non-specific mechanical low back pain and I do not feel that repeat imaging, parenteral medications, or co nsults are indicated at this time. Will plan to recommend that he continue non- opioid pain management and follow up with his PMD and established specialists and provide return precautions. By: Cristobal Waldrop MD Time: 07/02 1009 Comment: MRI total spine from 06/16/23: CERVICAL SPINE: The alignment of the cervical spine is normal. Vertebral bodies demonstrate normal signal intensity on all sequences. No acute fracture is identified. The craniocervical junction is normal. The visualized portions of the skull base and the posterior fossa are normal. The spinal cord demonstrates normal signal intensity on all sequences. Intervertebral disks have normal height and signal intensity. No soft tissue abnormality is identified. Normal signal voids are present in the vertebral arteries. There is no abnormal contrast enhancement. The disks are normal in configuration. There is no facet arthropathy. There is no uncovertebral joint disease. There is no neuroforaminal stenosis. There is no spinal canal stenosis. THORACIC SPINE: 12 rib-bearing thoracic vertebra. The alignment of the thoracic spine is normal. Vertebral bodies demonstrate normal signal intensity on all sequences. There are no compression fractures. The spinal cord demonstrates normal signal intensity on all sequences. Intervertebral disks have normal height and signal intensity. Limited views of the chest and abdomen show no soft tissue abnormality. Thoracoabdominal aortic aneurysm and dissection as seen on recent CTA. There is no abnormal contrast enhancement. The disks are normal in configuration. There is no facet arthropathy. There is no neuroforaminal stenosis. There is no spinal canal stenosis. By: Meron Monterroso MD Time: 07/02 1010 Comment: MRI total spine from 06/16/23 cont: LUMBAR SPINE: The alignment of the lumbar spine is normal. Vertebral bodies demonstrate normal signal intensity on all sequences. There are no compression fractures. The conus medullaris terminates at the level of L1-L2. The distal spinal cord signal intensity is normal. Intervertebral disks have normal height and signal intensity. There is mild right paraspinal edema at L4-L5 without fluid collection. Limited views of the abdomen and pelvis show no soft tissue abnormality. There is no abnormal contrast enhancement. The disks are normal in configuration. There is no facet arthropathy. There is no neuroforaminal stenosis. There is no spinal canal stenosis. By: Meron Monterroso MD Time: 07/02 1055 Comment: Spoke with family and patient. Notably patient's vital signs are within normal limits, he is not tachycardic and does not appear uncomfortable on interview. I updated patient and his mother who were at bedside that after careful review of recent imaging, his discharge forms, and discussionwith the team, we feel the best way forward to address his pain is with multimodal pain regimen which has been ordered. Will DC at this time By: Meron Monterroso MD Time: 07/02 1100 Comment: Patient has been referred to outpatient pain management By: Meron Monterroso MD Chronic bilateral low back pain without sciatica Abdominal aortic aneurysm (AAA) without rupture, unspecified part (HCC) Hypertension, unspecified type Meron Monterroso MD Resident 07/02/23 1111 Cosigned by Cristobal Waldrop MD at 07/02/2023 11:14 AM CYTOLOGY LABORATORY MANAGER LOGY LABORATORY MANAGER LOGY LABORATORY MANAGER Associated attestation - Cristobal Waldrop MD - 07/02/2023 11:14 AM CYTOLOGY LABORATORY MANAGER I have seen and examined the patient on 07/02/2023. I agree with the findings and plan of care as documented in the resident's note. * Franci Howard RN - 07/02/2023 9:45 AM CST Bed: [facility]3] Expected date: Expected time: Means of arrival: Car Comments: triage Franci Howard RN 07/02/23 0945 LOGY LABORATORY MANAGER * Tana Byrd RN - 07/02/2023 7:21 AM CST Pt to ED with chronic LBP and hypertension, ,hx of ruptured AAA. Pt is A/O x4. LOGY LABORATORY MANAGER documented in this encounter Miscellaneous Notes * ED Procedure Note - Deniz Huitron MD - 07/02/2023 11:05 AM CYTOLOGY LABORATORY MANAGER Associated Order(s): ECG 12 lead Procedure ECG 12 lead Date/Time: 07/02/2023 1:06 PM Performed by: Deniz Huitron MD Authorized by: Cristobal Waldrop MD Rate: ECG rate: 90 beats per minute ECG rate assessment: normal Rhythm: Rhythm: sinus rhythm Ectopy: Ectopy: none QRS: QRS axis: Normal QRS intervals: Normal Conduction: Conduction: normal ST segments: ST segments: Non-specific T waves: T waves: non-specific Previous ECG: Previous ECG: Compared to current Date of previous EC06/13/2023 Similarity: Changes noted Interpretation: Interpretation: non-specific Recommended Follow-up: Recommended follow up: further workup in the ED Deniz Huitron MD 07/02/23 1308 LOGY LABORATORY MANAGER * Plan of Care - Sheila Mixon RN - 07/02/2023 9:36 AM CST 07/02/23 0935 Type Readmission </= 30 Days? Yes High Utilizer >/= 4 Hospitalizations in 12 Months? No Is this Patient Active with an Outpatient Case Management Program? No Record Review of Prior Admission Was this Readmission Planned? No Disposition at Prior Admit D/C Home Was the D/C Location what the Care Team Recommended? Yes High Risk Medications Anticoagulants;Psychiatric;NSAIDS Is Patient ACO No Patient Interview Primary Readmission Reason New complications since discharge/not associated with prior admission As part of the readmission prevention initiative, ED CM receives an automated alert on patient who was discharged from [facility] inpatient admission </=7 days (DC 06/25/2023; ED treatment team aware). ED workup/orders/tx plan pending. Chart review performed. SDOH identified and not a High Utilizer (=>4 admits past 12 mos). Upcoming scheduled appts per [facility] EMR: 07/20/2023 3:15 PM Joaquín Abarca MD [facility] 8B Cardiology 08/03/2023 2:00 PM [id number] 08/03/2023 2:45 PM Leo Manzano MD [facility] [address] No ED CM/SW needs identified at this time, but please contact ED CM or ED SW for questions and/or assistance or for decision to admit so that any appropriate admission alternative can be discussed. LOGY LABORATORY MANAGER documented in this encounter Plan of Treatment Scheduled Referrals Name Type Priority Associated Diagnoses Order Schedule Ambulatory referral to Pain Management Outpatient Referral Routine Chronic bilateral low back pain without sciatica Expected: 07/16/2023 (Approximate), Expires: 07/02/2024 documented as of this encounter Procedures Procedure Name Priority Date/Time Associated Diagnosis Comments ECG 12-LEAD STAT 07/02/2023 1:06 PM CYTOLOGY LABORATORY MANAGER documented in this encounter Results * ECG 12-LEAD (07/02/2023 1:06 PM CYTOLOGY LABORATORY MANAGER) Narrative [facility] - 07/02/2023 1:06 PM CYTOLOGY LABORATORY MANAGER Deniz Huitron MD ? 07/02/2023 ??1:08 PM ECG 12 lead Date/Time: 07/02/2023 1:06 PM Performed by: Deniz Huitron MD Authorized by: Cristobal Waldrop MD ?? Rate: ??ECG rate: ??90 beats per minute ??ECG rate assessment: normal ?? Rhythm: ??Rhythm: sinus rhythm ?? Ectopy: ??Ectopy: none ?? QRS: ??QRS axis: ??Normal ??QRS intervals: ??Normal Conduction: ??Conduction: normal ?? ST segments: ??ST segments: ??Non-specific T waves: ??T waves: non-specific ?? Previous ECG: ??Previous ECG: ??Compared to current ??Date of previous ECG: ??06/13/2023 ??Similarity: ??Changes noted Interpretation: ??Interpretation: non-specific ?? Recommended Follow-up: ??Recommended follow up: further workup in the ED ?? us Cristobal aWldrop MD ECG ORDERABLES Fin al Result [facility] documented in this encounter Visit Diagnoses Diagnosis Chronic bilateral low back pain without sciatica- Primary Abdominal aortic aneurysm (AAA) without rupture, unspecified part (HCC) Hypertension, unspecified type Obesity (BMI 30-39.9) documented in this encounter Administered Medications Inactive Administered Medications - up to 3 most recent administrations Medication Order MAR Action Action Date Dose Rate Site acetaminophen (TYLENOL) tablet 1,000 mg 1,000 mg, oral, Every 6 hours PRN, 1st line for pain, Starting on 07/02/23 at 0956, For 3 doses Given 07/02/2023 10:03 AM CYTOLOGY LABORATORY MANAGER 1,000 mg gabapentin (NEURONTIN) capsule 300 mg 300 mg, oral, Once, On 07/02/23 at 0958, For 1 dose Given 07/02/2023 10:03 AM CYTOLOGY LABORATORY MANAGER 300 mg lidocaine (ASPERCREME) 4 % patch 2 patch 2 patch, transdermal, Administer over 12 Hours, Every 24 hours, First dose on 07/02/23 at 0958, For 1 dose, Apply to affected area: back Medication Applied 07/02/2023 10:04 AM CYTOLOGY LABORATORY MANAGER 2 patches Other (Comment) methocarbamoL (ROBAXIN) tablet 750 mg 750 mg, oral, Once, On 07/02/23 at 0958, For 1 dose Given 07/02/2023 10:05 AM CYTOLOGY LABORATORY MANAGER 750 mg documented in this encounter Active and Recently Administered Medications Times are shown in CYTOLOGY LABORATORY MANAGER. Scheduled Medication Order 06/30/2023 07/01/2023 07/02/2023 gabapentin (NEURONTIN) capsule 300 mg (COMPLETED) 300 mg, oral, Once, On 07/02/23 at 0958, For 1 dose 1003 (Given - Provid er: Shayna Simpson RN) lidocaine (ASPERCREME) 4 % patch 2 patch 2 patch, transdermal, Administer over 12 Hours, Every 24 hours, First dose on 07/02/23 at 0958, For 1 dose, Apply to affected area: back 1004 (Medication Winifred lied - Provider: Shayna Simpson RN - Comment: lower back)1105 (Due: Medication Removed - Provider: Automatic Discharge Provider - Comment: Time automatically adjusted from order being discontinued) methocarbamoL (ROBAXIN) tablet 750 mg (COMPLETED) 750 mg, oral, Once, On 07/02/23 at 0958, For 1 dose 1005 (Given - Provid er: Shayna Simpson RN) PRN Medication Order 06/30/2023 07/01/2023 07/02/2023 acetaminophen (TYLENOL) tablet 1,000 mg 1,000 mg, oral, Every 6 hours PRN, 1st line for pain, Starting on 07/02/23 at 0956, For 3 doses 1003 (Given - Provid er: Shayna Simpson RN) documented in this encounter Orders Nursing Count Last Ordered Date First Orde red Date MISCELLANEOUS NURSING CARE ORDER (SPECIFY) 1 07/02/2023 documented in this encounter Care Teams Polisher Aluminum Relationship Specialty Start Date End Date Carl Strickland MD [address] [facility] [address] [place] [address] PCP - General Internal Medicine 06/06/23 Leo Manzano MD [address] [facility] [address] [place] [address] Surgeon Vascular Surgery 05/16/23 documented as of this encounter
--- OUTSIDE RECORDS SUMMARY | 2024-05-30 05:37 | XMS_ITS | Encounter Summary ---
Author Organization [facility] Healthcare Address [address] [facility] [place] [address] Care Team Providers Care Purchasing Officer Name Role Phone Faustino Herrera MD Unavailable [phone] Carl Strickland MD Primary Care Provider Reason for Visit * Reason Comments Hypertension * Auth/Cert (Routine) Specialty Diagnoses / Procedures Referred By Contac t Referred To Contact Diagnoses Infrarenal abdominal aortic aneurysm, without rupture (HCC) Procedures NA Referral ID Status Reason Start Date Expiration Date Visits Re quested Visits Authorized [id number] 1 1 Encounter Details Date Type Department Care Team (Latest Contact Info) Description 06/13/2023 12:39 PM COMPANY LAUNDRY WORKER - 06/25/2023 1:35 PM COMPANY LAUNDRY WORKER Hospital Encounter [facility] [address] [place] [address] Guerrero De Los Santos MD [address] [place] [address] Faustino Herrera MD [address] [facility] [place] [id number] [place] [address] Nigel Mercado MD [address] [place] [address] Infrarenal abdominal aortic aneurysm, without rupture (HCC) (Primary Dx); Hypertension, unspecified type; Acute midline thoracic back pain; Lumbar spine pain; Dissection of aorta, unspecified portion of aorta (HCC); Epistaxis Discharge Disposition: Discharge to home or self care Social History Tobacco Use Types Packs/Day Years Used Date Smoking Tobacco: Never Smokeless Tobacco: Never Tobacco Cessation:Counseling Given: Not Answered Alcohol Use Standard Drinks/Week Comments Not Currently 0 (1 standard drink = 0.6 oz pur e alcohol) [facility] Utilities Answer Date Recorded In the past 12 months has e electric, gas, oil, or water [facility] threatened to shut off services in your [...] often do you attend chur ch or christian services? More than 4 times per year 06/15/2023 Do you belong to any clubs o r organizations such as anabaptist groups, unions, fraternal or athletic groups, or [...] slept in a alf (including now)? No 06/15/2023 Personal Safety Answer Date Recorded Getting School Help Needed Denies 05/09 Sex and Gender Information Value Date Recorded Sex Assigned at Not on file Legal Sex Male 3:42 AM COMPANY LAUNDRY WORKER Gender Identity Not on file Sexual Orientation Straight 06/12/2023 11 :43 PM COMPANY LAUNDRY WORKER documented as of this encounter Last Filed Vital Signs Vital Sign Reading Time Taken Comments Blood Pressure 159/69 06/25/2023 8:52 AM COMPANY LAUNDRY WORKER Pulse 74 06/25/2023 8:52 AM COMPANY LAUNDRY WORKER Temperature 36.6 ??C (97.9 ??F) 06/25/2023 8:52 AM CS T Respiratory Rate 18 06/25/2023 8:52 AM COMPANY LAUNDRY WORKER Oxygen Saturation 99% 06/25/2023 8:52 AM COMPANY LAUNDRY WORKER Inhaled Oxygen Concentration - - Weight 98.8 kg (217 lb 13 oz) 06/24/2023 4:45 AM COMPANY LAUNDRY WORKER Height 175.3 cm (5' 9 ) 06/13/2023 7:35 PM COMPANY LAUNDRY WORKER Body Mass Index 32.17 06/13/2023 7:35 PM COMPANY LAUNDRY WORKER documented in this encounter Discharge Summaries * Cristobal Chopra MD - 06/25/2023 10:19 AM CST Inpatient Discharge Summary BRIEF OVERVIEW Admitting Provider: Faustino Herrera MD Discharge Provider: Faustino Herrera MD Primary Care Physician at Discharge: Carl Strickland MD [phone] Admission Date: 06/13/2023 Discharge Date: 06/25/2023 Admission Location: [facility] Problems/Diagnoses: Principal Problem: Infrarenal abdominal aortic aneurysm, without rupture (HCC) Active Problems: HTN (hypertension) Chronic back pain Pseudoaneurysm following procedure (CMS/HCC) ([facility]) Resolved Problems: No resolved hospital problems. DETAILS OF HOSPITAL STAY Presenting Problem/History of Present Illness: 33 y.o M with hx HTN, chronic abdominal pain, mood disorder, AAA s/p TEVAR 06/05 (placed new graft within old graft that extends over distal portion of previous TEVAR graft that covers the new entry tear and stops above celiac artery). 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 He presents to the ED today 06/[address] Herrera with several days of hypertension and painin his back and left groin at his TEVAR site. He reports taking his antihypertensives as instructedbut SBP is 170-180 rather than goal of permissive hypertension ~140 for spinal cord perfusion. He also reports having intermittent fever, chills and night sweats, denies N/V, cough, SOB. Denies numbness, weakness and tingling. He is admitted to the CTICU for impulse control Hospital Course: Pseudoaneurysm following procedure (CMS/HCC) ([facility]) Assessment & Plan - s/p vascular access - Q4 N/V checks - no current surgical intervention - no activity restrictions, OOB/ ambulate Chronic back pain Assessment & Plan - CT without discitis or osteomyelitis on 06/13 - MRI 06/13 also without discitis or osteomyelitis - no narcotic pain medications are required from vascular surgery perspective - Consult pain management team HTN (hypertension) Assessment & Plan Difficult to control Htn. Dr. Abarca following - Continue amlodipine, lisinopril, coreg, hydralazine - SBP goal 120-140 - VS q 4 hrs and prn * Infrarenal abdominal aortic aneurysm, without rupture (HCC) Assessment & Plan s/p TEVAR on 06/05/23 (graft terminates above celiac take off) 06/11 discharged home; 06/13 Re admittedfor worsening back pain, HTN, and subjective fever/chills. - CT 06/13 shows no change in aneurysm, no stent migration, no increase in false lumen perfusion - non operative Patient was admitted to the ICU for impulse control. His final oral blood pressure medication regimen was adjusted per Cardiology. He was adament about going home on 06/25. He was advised that a pain management consult was recommended for longer term control of his pain. The patient preferred not venkat seen by pain management and rather go home. He was ambulating, tolerating a regular diet, passing gas and stool, voiding spontaneously. He was advised to have a pain management consult while inpatient. He stated very adamantly that he wanted to leave today and did not want to wait for a pain management consult. Unfortunately without the pain med consult, we do not have the ability to optimize his pain medication regimen and inappropriate opioid wean. Additionally, the patient was very eager to leave in the next few hours and an appropriate provider who is able to prescribe narcotics for a patient with [place] Medicaid was not available immediately, he was not willing to wait until one was available. I spoke with the patient around 11:15 AM on 06/25. He was advised that we were working with mobile pharmacy to get him the appropriate dose of his carvedilol for blood pressure management at home. Patient agreed to wait for 1-2 hours for us to get the prescription medications sorted so they could besent to the mobile pharmacy and he could be discharged. Active Issues Requiring Follow-up: Hx of type B aortic dissection status post TEVAR, follow-up for CT scan and clinic with Dr. Herrera in 1 month. Follow-up with Dr. Abarca from Cardiology Clinic as recommended Test Results Pending at Discharge: Pending Labs Order Current Status Aldosterone In process Triglycerides In process Discharge Details Physical Exam at Discharge: Discharge Condition: fair Pulse: 74 Resp: 18 BP: 159/69 Temp: 36.6 ??C (97.9 ??F) Weight: 98.8 kg (217 lb 13 oz) Pertinent Exam Findings at Discharge: Physical Exam: GENERAL: Awake, alert, oriented x 4; no acute distress. HEENT: Eyes: Pupils equal, round, reactive to light and accommodation. NECK: Supple and symmetric. RESPIRATORY: Good respiratory effort. Chest: Symmetrical rise and fall. Symmetrical expansion with respirations. CARDIOVASCULAR: Regular rate and rhythm. GASTROINTESTINAL: No tenderness or mass. Abdomen is nondistended. MUSCULOSKELETAL: Range of motion adequate. Strength and tone equal bilaterally, stable. PULSES: palpable NEUROLOGICAL: Cranial nerves II-XII grossly intact. Sensation intact. Discharge Disposition: Discharge to home or self care Code Status at Discharge: Full code Discharge Instructions: Activity Instructions Discharge Activity: Walking -You may walk as tolerated. Diet Instructions Adult Discharge Diet Diet Type: Return to previous diet Other Instructions Call provider for: increased temperature -Temperature greater than 101 degrees F Call provider for: nausea, vomiting, diarrhea -If you have persistent nausea, vomiting or diarrhea that does not stop Call provider for: redness, tenderness, or signs of infection (pain, swelling, redness, odor or green/yellow discharge around incision site) Call provider for: severe uncontrolled pain Call provider for: any other concerns or questions Call provider if: you feel dizzy, very tired or like you may faint Special Instructions Check your blood pressure at least once a day. The top number of your blood pressure should be between 120 and 140. If you are consistently outside of this range by more than 10 points, you should call your primary care doctor to discuss your hypertension medications. Call our office with any questions or concerns at . If you have sudden change in your pain or experience new back pain or abdominal pain, or have new weakness, call 609 or visit your local emergency department. You should follow up in one month for a CT scan and clinic visit. Discharge Medications: Current Medications TAKE these medications [...] by mouth daily Commonly known as: NORVASC Start taking on: June 26, 2023 aspirin 81 mg chewable tablet Take 1 [...] by mouth 3 (three) times a day For: high blood pressure Commonly known as: APRESOLINE lidocaine 4 % adhesive patch,medicated Place 3 patches on the skin daily Commonly known as: ASPERCREME lisinopriL 20 mg tablet Take 1 tablet (20 mg total) by mouth daily Commonly known as: PRINIVIL,ZESTRIL Start taking on: June 26, 2023 methocarbamoL 500 mg tablet Take 1.5 tablets (750 mg total) by mouth 3 (three) times a day as needed for muscle spasms for up to 90 doses Commonly known as: ROBAXIN ondansetron ODT 4 mg disintegrating tablet Take [...] mg total) by mouth daily with dinner Commonly known as: FLOMAX Outpatient Follow-Up: Future Appointments Date Time Provider Department Center 07/20/2023 3:15 PM Joaquín Abarca MD [facility] Cardiology 08/03/2023 2:00 PM [id number] 08/03/2023 2:45 PM Faustino Herrera MD [facility] [address] Cosigned by Faustino Herrera MD at 06/25/2023 12:48 PM COMPANY LAUNDRY WORKER ANY LAUNDRY WORKER ANY LAUNDRY WORKER ANY LAUNDRY WORKER ANY LAUNDRY WORKER ANY LAUNDRY WORKER documented in this encounter Medications at Time [...] on the skin daily 4 07/20/19 24 lisinopriL (PRINIVIL,ZESTRIL) 20 mg tablet Take 1 tablet (20 mg total) by mouth daily 30 tablet 4 07/01/19 24 methocarbamoL (ROBAXIN) 500 mg tablet Take [...] 07/08/19 24 documented as of this encounter Ordered Prescriptions Prescription Sig Dispense Quantity Refills Last Filled Start Date End Date hydrALAZINE (APRESOLINE) 50 mg tablet Take 1 tablet (50 mg total) by mouth 3 (three) times a day 90 tablet 06/25/2023 5 amLODIPine (NORVASC) 10 mg tablet Take 1 tablet (10 mg total) by mouth daily 30 tablet 06/26/2023 5 gabapentin (NEURONTIN) 300 mg capsule Take 1 capsule (300 mg total) by mouth 3 (three) times a day 90 capsule 06/25/2023 4 methocarbamoL (ROBAXIN) 500 mg tablet Take 1.5 tablets (750 mg total) by mouth 3 (three) times a day as needed for muscle spasms for up to 90 doses 30 tablet 2 06/25/2023 4 carvediloL (COREG) 12.5 mg tablet Take 2 tablets (25 mg total) by mouth 2 (two) times a day with meals 120 tablet 06/25/2023 4 tamsulosin (FLOMAX) 0.4 mg extended release capsule Take 1 capsule (0.4 mg total) by mouth daily with dinner 30 capsule 06/25/2023 4 lisinopriL (PRINIVIL,ZESTRIL) 20 mg tablet Take 1 tablet (20 mg total) by mouth daily 30 tablet 06/26/2023 4 methocarbamoL (ROBAXIN) 500 mg tablet Take 2 tablets (1,000 mg total) by mouth 3 (three) times a day as needed for muscle spasms for up to 90 doses 30 tablet 2 06/25/2023 4 lidocaine (ASPERCREME) 4 % adhesive patch,medicated Place 3 patches on the skin daily 06/25/2023 4 carvediloL (COREG) 12.5 mg tablet Take 3 tablets (37.5 mg total) by mouth 2 (two) times a day with meals 180 tablet 11 06/25/2023 4 documented in this encounter Discharge Disposition Disposition Code Departure Means Destination Comment s Discharge to home or self care documented in this encounter Progress Notes * Bettie Wheeler NP - 06/24/2023 11:06 AM CST Vascular Surgery Daily Progress (ICU transfer Accept) Patient Name/MRN: Eriberto Chau [id number] Treatment Team: Vascular Surgery- Pager: [phone] Attending: Faustino Herrera MD Today's Date: 06/24/2023 Room/Bed: [id number] Admit Date: 06/13/2023 Code Status: Full Code Patient centered goal: Agree with patient centered goal: Subjective Chief complaint: Back pain, subjective fever/ chills, HTN Events During This Hospitalization: 06/04: Admit for hypertensive urgency and flank pain. Impulse control. 06/05: TEVAR: L groin access, placed new graft within old graft that extends over distal portion of previous TEVAR graft that covers the new entry tear and stops above celiac artery. Placement of new uncovered stent graft to visceral aorta as the false lumen was compressing the true lumen. He is still filling false lumen. Lumbar drain in place. 06/07: Lumbar drain removed. 06/11: D/C home. 06/13: Re admitted for worsening back pain, HTN, and subjective fever/chills. CT with no change in aneurysm, no stent migration, no increase in false lumen perfusion 06/24: Transfer to floor Events Over Last 24 Hours: Transfer to floor from ICU. Pain management consult. Allergies Allergen Reactions Amoxicillin Hives Current Facility-Administered Medications Medication Dose Route Frequency Provider Last Rate Last Admin acetaminophen (TYLENOL) tablet 1,000 mg 1,000 mg oral Q6H Dank Rodriguez MD 1,000 mg at 06/24/23 1131 amLODIPine (NORVASC) tablet 10 mg 10 mg oral Daily Sreekanth Armstrong NP 10 mg at 06/24/23 0810 Carrier Fluids for Secondary Infusion - 0.9% Sodium Chloride 30 mL intravenous PRN Mateo Diaz PROFESSOR OF NURSING 30 mL at 06/17/23 0129 carvediloL (COREG) tablet 37.5 mg 37.5 mg oral BID with meals (bkfst, dinner) Cristobal Cote MD 37.5 mg at 06/24/23 0810 docusate sodium (COLACE) capsule 100 mg 100 mg oral BID Mateo Diaz PROFESSOR OF NURSING 100 mg at 06/23/23 0811 enoxaparin (LOVENOX) syringe 40 mg 40 mg subcutaneous Daily-2100 Mateo Diaz PROFESSOR OF NURSING 40 mg at 06/23/232052 hydrALAZINE (APRESOLINE) tablet 50 mg 50 mg oral TID Dank Villa MD 50 mg at 06/24/23 0810 labetaloL (NORMODYNE,TRANDATE) injection 5 mg 5 mg intravenous Q2H PRN Dank Villa MD 5 mg at 06/22/23 1811 lidocaine (ASPERCREME) 4 % patch 3 patch 3 patch transdermal Q24H Dank Villa MD 3 patch at 06/23/23 1211 lisinopriL (PRINIVIL,ZESTRIL) tablet 20 mg 20 mg oral Daily Dank Villa MD 20 mg at 06/24/23 0810 methocarbamoL (ROBAXIN) tablet 1,000 mg 1,000 mg oral Q8H Dank Villa MD 1,000 mg at 06/24/23 0810 ondansetron (ZOFRAN) injection 4 mg 4 mg intravenous Q6H PRN Mateo Diaz PROFESSOR OF NURSING 4 mg at 06/15/23 0841 oxyCODONE (ROXICODONE) tablet 10 mg 10 mg oral Q3H PRN Dank Villa MD 10 mg at 06/24/23 1053 polyethylene glycol (MIRALAX) packet 17 g 17 g oral BID Sreekanth Armstrong, TREE 17 g at 06/22/232107 pregabalin (LYRICA) capsule 75 mg 75 mg oral BID Cristobal Chopra MD senna (SENOKOT) tablet 1 tablet 1 tablet oral BID Mateo Diaz, PROFESSOR OF NURSING 1 tablet at 06/23/23 0810 tamsulosin (FLOMAX) extended release capsule 0.4 mg 0.4 mg oral Daily with dinner Dank Villa MD 0.4 mg at 06/23/23 1754 traZODone (DESYREL) tablet 50 mg 50 mg oral Nightly PRN Dank Villa MD 50 mg at 06/23/232052 Objective Vitals: 24hr Min/Max: Temp Min: 36.8 ??C (98.2 ??F) Max: 37.3 ??C (99.1 ??F) Pulse Min: 72 Max: 93 BP Min: 100/59 Max: 164/74 Resp Min: 5 Max: 22 SpO2 Min: 92 % Max: 100 % Most Recent : Vitals: 06/24/23 1331 BP: 131/69 Pulse: 83 Resp: 18 Temp: 36.8 ??C (98.2 ??F) SpO2: 98% I/O last 2 completed shifts: In: 1000 [P.O.:1000] Out: 1100 [Urine:1100] I/O this shift: In: 126 [I.V.:126] Out: - Physical Exam: GENERAL: Awake, alert, oriented x 4; no acute distress. HEENT: Eyes: Pupils equal, round, reactive to light and accommodation. NECK: Supple and symmetric. RESPIRATORY: Good respiratory effort. Chest: Symmetrical rise and fall. Symmetrical expansion with respirations. CARDIOVASCULAR: Regular rate and rhythm. GASTROINTESTINAL: No tenderness or mass. Abdomen is nondistended. MUSCULOSKELETAL: Range of motion adequate. Strength and tone equal bilaterally, stable. PULSES: palpable NEUROLOGICAL: Cranial nerves II-XII grossly intact. Sensation intact. Lab/Radiology/Diagnostic Review: Laboratory review: Lab results in the last 12 hours: No results found for this or any previous visit (from the past 12 hour(s)). Assessment/Plan Principal Problem: Infrarenal abdominal aortic aneurysm, without rupture (HCC) Active Problems: HTN (hypertension) Chronic back pain Pseudoaneurysm following procedure (CMS/HCC) (HCC) Pseudoaneurysm following procedure (CMS/HCC) (HCC) Assessment & Plan - s/p vascular access - Q4 N/V checks - no current surgical intervention - no activity restrictions, OOB/ ambulate Chronic back pain Assessment & Plan - CT without discitis or osteomyelitis on 06/13 - MRI 06/13 also without discitis or osteomyelitis - no narcotic pain medications are required from vascular surgery perspective - Consult pain management team HTN (hypertension) Assessment & Plan Difficult to control Htn. Dr. Abarca following - Continue amlodipine, lisinopril, coreg, hydralazine - SBP goal 120-140 - VS q 4 hrs and prn * Infrarenal abdominal aortic aneurysm, without rupture (HCC) Assessment & Plan s/p TEVAR on 06/05/23 (graft terminates above celiac take off) 06/11 discharged home; 06/13 Re admittedfor worsening back pain, HTN, and subjective fever/chills. - CT 06/13 shows no change in aneurysm, no stent migration, no increase in false lumen perfusion - non operative For patients or family members viewing this note through [employer] programs: This note was written as a communication tool between healthcare providers and may contain technical language, terminology and abbreviations that is difficult to interpret without advanced medical training. If you have questions or concerns regarding what is written in this note, please request to speak with the primary medical team taking care of you or your family member or call your Primary care provider (PCP) for clarification. Please do not call the cell or pager numbers listed in this note, as the provider they are associated with may no longer be involved in your care. Cosigned by Faustino Herrera MD at 06/24/2023 2:21 PM COMPANY LAUNDRY WORKER ANY LAUNDRY WORKER ANY LAUNDRY WORKER * Dank Villa MD - 06/24/2023 10:19 AM CSTAssociated Order(s): Critical Care Post-Procedure Diagnose(s): Infrarenal abdominal aortic aneurysm, without rupture (HCC) ICU Progress Note ICU Gold Service: Subjective Patient is a 33 y.o. male presented to the ICU with chief complaint of Back pain and hypertensive emergency. HPI: Patient is a 33 y.o. male admitted to the hospital on 06/13/2023 12:39 PM with/following: type B aortic dissection ICU course: 06/04: Admit for hypertensive urgency and flank pain. Impulse control. 06/05: TEVAR: L groin access, placed new graft within old graft that extends over distal portion of previous TEVAR graft that covers the new entry tear and stops above celiac artery. Placement of new uncovered stent graft to visceral aorta as the false lumen was compressing the true lumen. He is still filling false lumen. Lumbar drain in place. 06/07: Lumbar drain removed. 06/11: D/C home. 06/13: Re admitted for worsening back pain, HTN, and subjective fever/chills. Interval History: NAEO ; some issues with breakthrough pain yesterday BP stable No other issues: tolerating diet, having BMs, denies other complaints, some nightmares still Past Medical History: Diagnosis Date Hypertension Kidney [...] for wheezing 1 each 0 amLODIPine (NORVASC) 5 mg tablet Take 1 tablet (5 mg total) by mouth daily 30 tablet 11 aspirin 81 mg chewable tablet Take 1 tablet (81 mg total) by mouth daily 30 tablet 11 carvediloL (COREG) 25 mg tablet Take 1 tablet (25 mg total) by mouth 2 (two) times a day with meals60 tablet 11 gabapentin (NEURONTIN) 300 mg capsule Take 1 capsule (300 mg total) by mouth 3 (three) times a day 90 capsule 11 hydrALAZINE (APRESOLINE) 25 mg tablet Take 1 tablet (25 mg total) by mouth 3 (three) times a day 90tablet 11 lidocaine (ASPERCREME) 4 % adhesive patch,medicated Place 2 patches on the skin daily 20 patch 0 methocarbamoL (ROBAXIN) 750 mg tablet Take 1 tablet (750 mg total) by mouth 3 (three) times a day 90 tablet 0 ondansetron ODT (ZOFRAN-ODT) 4 mg disintegrating tablet Take 1 tablet (4 mg total) by mouth every 8(eight) hours as needed for nausea or vomiting 10 tablet 0 oxyCODONE (ROXICODONE) 10 mg tablet Take 1 tablet (10 mg total) by mouth every 4 (four) hours as needed for pain 20 tablet 0 polyethylene glycol (MIRALAX) 17 gram/dose bulk powder Take 17 g by mouth daily as needed (constipation) QUEtiapine (SEROquel) 50 mg tablet Take 1 tablet (50 mg total) by mouth nightly 30 tablet 0 senna-docusate (PERICOLACE) 8.6-50 mg Take 2 tablets by mouth 2 (two) times a day To prevent constipation 40 tablet 0 tamsulosin (FLOMAX) 0.4 mg extended release capsule Take 1 capsule (0.4 mg total) by mouth daily 30capsule 0 Hemodynamics: MAP (mmHg): [61-113] 80 Objective Physical exam: Neuro: awake, alert, oriented x4, CAM (-), moves all extremities and follows commands. Strength 5/5to all extremities. Cardiac: NSR 80s, RRR, S1 S2, periphery warm, pulses palpable distally Pulm: on NC, lungs clear bilaterally, respirations even and unlabored GI: abdomen round, soft, nontender, active bowel sounds : voids Skin: [place], warm, dry Assessment /Plan NEURO: #Acute Pain - lower back pain since prior admission - Increase Lopez 400 TID ; tylenol 1g q6h ; Robaxin 1g q8h ; x3 lido patches - Consult to pain service ; pending dispo - prn oxy 7.5 q4h ; interval changed to q3 from 4 - no dilaudid #Insomnia/Sleep Hygiene - off Seroquel - PRN trazadone 50 qpm CARDIAC: #Ty B Aortic Dissection - s/p TEVAR on 06/05/23 (graft terminates above celiac take off) ; return post op for pain/HTN - CT 06/13 no change in aneurysm, no stent migration, no incr in false lumen perfusion - non operative per Vascular surgery - monitor neuro status - Home ASA #PSA of left fem art - s/p vascular access - monitor peripheral pulses ; Q4 N/V checks per Vasc Surg - no current surgical intervention - no activity restriction per vascular team (ok to get to chair and ambulate) #Hypertensive Emergency - Off cleviprex 06/20 x24h ; DC'd TG trend - Cardiology consulted ; appreciate recs - SBP goal 120-140, HR goal <70 - off Clonidine ; off Spironolactone - Amlod 10 daily, coreg 37.5 BID, Lisinopril 20 daily, Hydral at 50 TID - PRN Labetalol 5mg PRN for HR > 80 or SBP > 140 - no Anibal US needed given recent CTA with patent renal arteries - adrenal sources of refractory HTN workup with Anibal/Josemanuel/DHEA-s/ser metaneph pending ; cortisol low PULMONARY: - No active ICU issues - on room air ; nasal cannula for Sats >92% - IS/pulm toilet q1h GI/NUTRITION: #Diet - regular diet - doc/miralax BID - Having BMs RENAL: - No active ICU issues - daily BMP ; trend UOP - Home Flomax ENDOCRINE: - no active ICU issues - BG checks per ICU protocol HEMATOLOGY: #ABLA - resolved - Hbg stable - Daily CBC ; Hbg stable - Consider transfusion for Hgb < 7 or for s/s active bleeding w/ hemodynamic instability #DVT PPx - Lovenox INFECTIOUS DISEASE: #Leukocytosis - resolved #R/O endovascular graft infection vs dural infection - WBC normal ; no fevers ; trend daily CBC/Temp - CT without discitis or osteomyelitis on 06/13 - MRI 06/13 also without discitis or ostemyelitis - ID following ; appreciate recs - C/Cefe DC'd per ID recs - Cx data and Imaging without infection ; BCx final NGTD MUSCULOSKELETAL: #Activity - OOBTC and ambulate as able - no activity restriction per vascular team (ok to get to chair and ambulate) ICU SoC/PROPHYLAXIS: DVT PPx: lovenox SUPPx: n/a ; diet SDUPPx: OOBTC TID and as tolerated CODE: Full DISPO: TT has a bed at 14:00 Dank Villa MD MS Section of Acute and Critical Care Surgery [facility] in [place] [facility] Performed by: Dank Villa MD Authorized by: Dank Villa MD CRITICAL CARE: Team: OTHER Shift: AM Level of Billing: Critical Care My time spent with this patient was 45 minutes: Critical Provider Statement: I have seen and examined the patient on this day of service. I have reviewed and confirmed the history, physical exam, laboratory and radiologic data as documented in thesigned ICU note. I have reviewed and discussed my treatment plan with the ICU team and other medical/service consultant staff, making frequent assessments and decisions [...] or life-threatening deterioration of the following conditions: I spent time reviewing and interpreting data from bedside monitors, laboratory results, and imaging, I spent time documenting in the medical record and I spent time discussing the management of this critically ill patient with consultants and the medical staff ANY LAUNDRY WORKER ANY LAUNDRY WORKER * Dank Villa MD - 06/23/2023 9:36 AM CSTAssociated Order(s): Critical Care Post-Procedure Diagnose(s): Infrarenal abdominal aortic aneurysm, without rupture (HCC) ICU Progress Note ICU Gold Service: Subjective Patient is a 33 y.o. male presented to the ICU with chief complaint of Back pain and hypertensive emergency. HPI: Patient is a 33 y.o. male admitted to the hospital on 06/13/2023 12:39 PM with/following: type B aortic dissection ICU course: 06/04: Admit for hypertensive urgency and flank pain. Impulse control. 06/05: TEVAR: L groin access, placed new graft within old graft that extends over distal portion of previous TEVAR graft that covers the new entry tear and stops above celiac artery. Placement of new uncovered stent graft to visceral aorta as the false lumen was compressing the true lumen. He is still filling false lumen. Lumbar drain in place. 06/07: Lumbar drain removed. 06/11: D/C home. 06/13: Re admitted for worsening back pain, HTN, and subjective fever/chills. Interval History: NAEO ; some issues with breakthrough pain yesterday BP stable No other issues: tolerating diet, having BMs, denies other complaints, some nightmares still Past Medical History: Diagnosis Date Hypertension Kidney [...] for wheezing 1 each 0 amLODIPine (NORVASC) 5 mg tablet Take 1 tablet (5 mg total) by mouth daily 30 tablet 11 aspirin 81 mg chewable tablet Take 1 tablet (81 mg total) by mouth daily 30 tablet 11 carvediloL (COREG) 25 mg tablet Take 1 tablet (25 mg total) by mouth 2 (two) times a day with meals60 tablet 11 gabapentin (NEURONTIN) 300 mg capsule Take 1 capsule (300 mg total) by mouth 3 (three) times a day 90 capsule 11 hydrALAZINE (APRESOLINE) 25 mg tablet Take 1 tablet (25 mg total) by mouth 3 (three) times a day 90tablet 11 lidocaine (ASPERCREME) 4 % adhesive patch,medicated Place 2 patches on the skin daily 20 patch 0 methocarbamoL (ROBAXIN) 750 mg tablet Take 1 tablet (750 mg total) by mouth 3 (three) times a day 90 tablet 0 ondansetron ODT (ZOFRAN-ODT) 4 mg disintegrating tablet Take 1 tablet (4 mg total) by mouth every 8(eight) hours as needed for nausea or vomiting 10 tablet 0 oxyCODONE (ROXICODONE) 10 mg tablet Take 1 tablet (10 mg total) by mouth every 4 (four) hours as needed for pain 20 tablet 0 polyethylene glycol (MIRALAX) 17 gram/dose bulk powder Take 17 g by mouth daily as needed (constipation) QUEtiapine (SEROquel) 50 mg tablet Take 1 tablet (50 mg total) by mouth nightly 30 tablet 0 senna-docusate (PERICOLACE) 8.6-50 mg Take 2 tablets by mouth 2 (two) times a day To prevent constipation 40 tablet 0 tamsulosin (FLOMAX) 0.4 mg extended release capsule Take 1 capsule (0.4 mg total) by mouth daily 30capsule 0 Hemodynamics: MAP (mmHg): [70-131] 131 Objective Physical exam: Neuro: awake, alert, oriented x4, CAM (-), moves all extremities and follows commands. Strength 5/5to all extremities. Cardiac: NSR 80s, RRR, S1 S2, periphery warm, pulses palpable distally Pulm: on NC, lungs clear bilaterally, respirations even and unlabored GI: abdomen round, soft, nontender, active bowel sounds : voids Skin: [place], warm, dry Assessment /Plan NEURO: #Acute Pain - lower back pain since prior admission - Scheduled Lopez 300 TID ; tylenol 1g q6h ; Robaxin 1g q8h ; x3 lido patches - prn oxy 7.5 q6h - DC dilaudid #Insomnia/Sleep Hygiene - DC Seroquel - PRN trazadone 50 qpm CARDIAC: #Ty B Aortic Dissection - s/p TEVAR on 06/05/23 (graft terminates above celiac take off) ; return post op for pain/HTN - CT 06/13 no change in aneurysm, no stent migration, no incr in false lumen perfusion - non operative per Vascular surgery - monitor neuro status - Home ASA #PSA of left fem art - s/p vascular access - monitor peripheral pulses ; Q4 N/V checks per Vasc Surg - no current surgical intervention - no activity restriction per vascular team (ok to get to chair and ambulate) #Hypertensive Emergency - Off cleviprex 06/20 x24h ; DC'd TG trend - Cardiology consulted ; appreciate recs - SBP goal 120-140, HR goal <70 - DC Clonidine ; DC Spironolactone - Amlod 10 daily, coreg 37.5 BID, change Captopril to Lisinopril 20 daily, Resume Hydral at 50 TID - PRN Labetalol 5mg PRN for HR > 80 or SBP > 140 - no Anibal US needed given recent CTA with patent renal arteries - adrenal sources of refractory HTN workup with Anibal/Josemanuel/DHEA-s/ser metaneph pending ; cortisol low PULMONARY: - No active ICU issues - on room air ; nasal cannula for Sats >92% - IS/pulm toilet q1h GI/NUTRITION: #Diet - regular diet - doc/miralax BID - Having BMs RENAL: - No active ICU issues - daily BMP ; trend UOP - Home Flomax ENDOCRINE: - no active ICU issues - BG checks per ICU protocol HEMATOLOGY: #ABLA - resolved - Hbg stable - Daily CBC ; Hbg stable - Consider transfusion for Hgb < 7 or for s/s active bleeding w/ hemodynamic instability #DVT PPx - Lovenox INFECTIOUS DISEASE: #Leukocytosis - resolved #R/O endovascular graft infection vs dural infection - WBC normal ; no fevers ; trend daily CBC/Temp - CT without discitis or osteomyelitis on 06/13 - MRI 06/13 also without discitis or ostemyelitis - ID following ; appreciate recs - C/Cefe DC'd per ID recs - Cx data and Imaging without infection ; BCx final NGTD MUSCULOSKELETAL: #Activity - OOBTC and ambulate as able - no activity restriction per vascular team (ok to get to chair and ambulate) ICU SoC/PROPHYLAXIS: DVT PPx: lovenox SUPPx: n/a ; diet SDUPPx: OOBTC TID and as tolerated CODE: Full DISPO: TTF to 7500 ; awaiting bed availability Dank Villa MD MS Section of Acute and Critical Care Surgery [facility] in [place] [facility] Performed by: Dank Villa MD Authorized by: Dank Villa MD CRITICAL CARE: Team: OTHER Shift: AM Level of Billing: Critical Care My time spent with this patient was 35 minutes: Critical Provider Statement: I have seen and examined the patient on this day of service. I have reviewed and confirmed the history, physical exam, laboratory and radiologic data as documented in thesigned ICU note. I have reviewed and discussed my treatment plan with the ICU team and other medical/service consultant staff, making frequent assessments and decisions [...] or life-threatening deterioration of the following conditions: I spent time documenting in the medical record, I spent time discussing the management of this critically ill patient with consultants and the medical staff and I spent time reviewing and interpreting data from bedside monitors, laboratory results, and imaging ANY LAUNDRY WORKER * Rosey Fine MD - 06/23/2023 7:41 AM CST Vascular Surgery Daily Progress Patient Name/MRN: Eriberto Chau [id number] Treatment Team: Vascular Surgery- Attending: Faustino Herrera MD Today's Date: 06/23/2023 Room/Bed: [id number] Admit Date: 06/13/2023 Code Status: Full Code Events Over Last 24 Hours: No acute issues overnight. Neuromotor intact. Denies any back pain this morning. Denies abdominal, chest pain. Left groin pain resolved. Allergies Allergen Reactions Amoxicillin Hives Current Facility-Administered Medications Medication Dose Route Frequency Provider Last Rate Last Admin acetaminophen (TYLENOL) tablet 1,000 mg 1,000 mg oral Q6H [facility] Dank Villa MD 1,000 mg at 06/23/23 0513 amLODIPine (NORVASC) tablet 10 mg 10 mg oral Daily Sreekanth Armstrong NP 10 mg at 06/22/23 0838 Carrier Fluids for Secondary Infusion - 0.9% Sodium Chloride 30 mL intravenous PRN Mateo Diaz NP 30 mL at 06/17/23 0129 carvediloL (COREG) tablet 37.5 mg 37.5 mg oral BID with meals (bkfst, dinner) Cristobal Cote MD 37.5 mg at 06/22/23 1700 docusate sodium (COLACE) capsule 100 mg 100 mg oral BID Mateo Diaz PROFESSOR OF NURSING 100 mg at 06/22/232107 enoxaparin (LOVENOX) syringe 40 mg 40 mg subcutaneous Daily-2100 Mateo Diaz PROFESSOR OF NURSING 40 mg at 06/22/232107 gabapentin (NEURONTIN) capsule 300 mg 300 mg oral TID Sreekanth Armstrong NP 300 mg at 06/22/232107 hydrALAZINE (APRESOLINE) tablet 25 mg 25 mg oral TID Dank Villa MD 25 mg at 06/22/232106 HYDROmorphone (DILAUDID) injection 0.5 mg 0.5 mg intravenous Q6H PRN Dank Villa MD 0.5 mg at 06/23/23 0338 labetaloL (NORMODYNE,TRANDATE) injection 5 mg 5 mg intravenous Q2H PRN Dank Villa MD 5 mg at 06/22/23 1811 Lactated Ringer's (LR) infusion 10 mL/hr intravenous Continuous Mateo Diaz PROFESSOR OF NURSING 10 mL/hr at 06/21/23 1131 10 mL/hr at 06/21/23 1131 lidocaine (ASPERCREME) 4 % patch 3 patch 3 patch transdermal Q24H Dank Villa MD 3 patch at 06/22/23 1227 lisinopriL (PRINIVIL,ZESTRIL) tablet 20 mg 20 mg oral Daily Dank Villa MD methocarbamoL (ROBAXIN) tablet 1,000 mg 1,000 mg oral Q8H Dank Villa MD 1,000 mg at 06/23/23 0025 ondansetron (ZOFRAN) injection 4 mg 4 mg intravenous Q6H PRN Mateo Diaz PROFESSOR OF NURSING 4 mg at 06/15/23 0841 oxyCODONE (ROXICODONE) tablet 7.5 mg 7.5 mg oral Q4H PRN Dank Villa MD 7.5 mg at 06/23/23 0239 polyethylene glycol (MIRALAX) packet 17 g 17 g oral BID Sreekanth Armstrong, PROFESSOR OF NURSING 17 g at 06/22/232107 QUEtiapine (SEROquel) tablet 25 mg 25 mg oral Nightly Dank Villa MD 25 mg at 06/22/232106 senna (SENOKOT) tablet 1 tablet 1 tablet oral BID Mateo Diaz, PROFESSOR OF NURSING 1 tablet at 06/22/232106 sodium chloride 0.9% solution 3-12 mL/hr intra-catheter Continuous Mateo Diaz NP 3 mL/hr at 06/22/23 1400 3 mL/hr at 06/22/23 1400 tamsulosin (FLOMAX) extended release capsule 0.4 mg 0.4 mg oral Daily with dinner Dank Villa MD 0.4 mg at 06/22/23 1700 traZODone (DESYREL) tablet 50 mg 50 mg oral Nightly PRN Dank Villa MD 50 mg at 06/22/23 2107 Objective Vitals: 24hr Min/Max: Temp Min: 36.7 ??C (98.1 ??F) Max: 36.7 ??C (98.1 ??F) Pulse Min: 75 Max: 93 BP Min: 103/69 Max: 169/93 Resp Min: 9 Max: 21 SpO2 Min: 92 % Max: 100 % Most Recent : Vitals: 06/23/23 0700 BP: 143/86 Pulse: 75 Resp: 13 Temp: SpO2: 96% I/O last 2 completed shifts: In: 1064 [P.O.:1040; I.V.:24] Out: 1650 [Urine:1650] I/O this shift: In: - Out: 300 [Urine:300] Physical Exam: General appearance: appears stated age Constitutional: No acute distress Eyes: EOMI, anicteric Cardiovascular: Normal rate, regular rhythm Right Radial: palpable Right Femoral: palpable Right DP: palpable Left Radial: palpable Left Femoral: palpable Left DP: palpable Respiratory: non-labored breathing GI: Soft, non-tender; non-distended. No pusatile abdominal mass Muskuloskeletal: Extremities warm, sensation and motor function intact Neuro: Alert and oriented x4, non-focal Lab/Radiology/Diagnostic Review: Laboratory review: Lab results in the last 12 hours: Recent Results (from the past 12 hour(s)) CBC without differential Collection Time: 06/23/23 5:06 AM Result Value Ref Range WBC 9.9 3.8 - 9.9 K/cumm Hgb 9.4 (L) 13.0 - 17.5 g/dL Hct 29.1 (L) 38.9 - 50.3 % Plt 446 (H) 150 - 400 K/cumm MPV 8.8 (L) 9.1 - 12.3 fL RBC 3.30 (L) 4.30 - 5.80 M/cumm MCV 88.2 81.3 - 96.4 fL MCH 28.5 27.1 - 33.3 pg MCHC 32.3 32.3 - 35.7 g/dL RDW CV 13.7 11.1 - 14.9 % RDW SD 44.7 35.7 - 48.1 fL NRBC abs 0.00 0.00 - 0.01 K/cumm Magnesium Collection Time: 06/23/23 5:06 AM Result Value Ref Range Magnesium 2.2 1.4 - 2.5 mg/dL Phosphorus Collection Time: 06/23/23 5:06 AM Result Value Ref Range Phosphorus, pl 5.1 (H) 2.3 - 4.5 mg/dL Basic metabolic panel Collection Time: 06/23/23 5:06 AM Result Value Ref Range Sodium 139 135 - 145 mmol/L Potassium, pl 4.3 3.3 - 4.9 mmol/L Chloride 103 97 - 110 mmol/L CO2 24 22 - 32 mmol/L Anion gap 12 2 - 15 mmol/L BUN 21 6 - 25 mg/dL Creatinine 0.96 0.80 - 1.30 mg/dL Glucose 102 70 - 199 mg/dL Calcium 10.0 8.5 - 10.3 mg/dL eGFR Collection Time: 06/23/23 5:06 AM Result Value Ref Range eGFR >90 >=60 mL/min/1.73 m2 Assessment/Plan Eriberto Chau is a 33 y.o. male with a history of type B aortic dissection s/p TBE, complicated byuncontrolled hypertension at home, readmitted with abdominal pain and nausea over a week ago, foundto have new entry tear distal to previous TBE graft, with signs of malperfusion, s/p TEVAR and dissection stent placement 06/05. Readmitted again from home with subjective fevers and chills, cultures so far negative. - OK to DC home from ICU - No IV pain medication - Final oral BP medication regimen per Cardiology - Continue SBP 140-160 - No further vascular surgical intervention planned at this time - Diet, activity as tolerated - Follow up in clinic in 1 month. Rosey Fine MD Vascular Surgery Fellow [phone] Cosigned by Faustino Herrera MD at 06/23/2023 6:35 PM COMPANY LAUNDRY WORKER ANY LAUNDRY WORKER ANY LAUNDRY WORKER * Dank Villa MD - 06/22/2023 11:30 AM CSTAssociated Order(s): Critical Care Post-Procedure Diagnose(s): Infrarenal abdominal aortic aneurysm, without rupture (HCC) ICU Progress Note ICU Gold Service: Subjective Patient is a 33 y.o. male presented to the ICU with chief complaint of Back pain and hypertensive emergency. HPI: Patient is a 33 y.o. male admitted to the hospital on 06/13/2023 12:39 PM with/following: type B aortic dissection ICU course: 06/04: Admit for hypertensive urgency and flank pain. Impulse control. 06/05: TEVAR: L groin access, placed new graft within old graft that extends over distal portion of previous TEVAR graft that covers the new entry tear and stops above celiac artery. Placement of new uncovered stent graft to visceral aorta as the false lumen was compressing the true lumen. He is still filling false lumen. Lumbar drain in place. 06/07: Lumbar drain removed. 06/11: D/C home. 06/13: Re admitted for worsening back pain, HTN, and subjective fever/chills. Interval History: NAEO ; pain getting better controlled ; not taken dilaudid x24h Hypotension yesterday with MAPs low 60s and SBP 90s Hydral/clonidine held yesterday ; held again this AM along with spironolactone No other issues: tolerating diet, having BMs, denies other complaints, some nightmares still Past Medical History: Diagnosis Date Hypertension Kidney [...] for wheezing 1 each 0 amLODIPine (NORVASC) 5 mg tablet Take 1 tablet (5 mg total) by mouth daily 30 tablet 11 aspirin 81 mg chewable tablet Take 1 tablet (81 mg total) by mouth daily 30 tablet 11 carvediloL (COREG) 25 mg tablet Take 1 tablet (25 mg total) by mouth 2 (two) times a day with meals60 tablet 11 gabapentin (NEURONTIN) 300 mg capsule Take 1 capsule (300 mg total) by mouth 3 (three) times a day 90 capsule 11 hydrALAZINE (APRESOLINE) 25 mg tablet Take 1 tablet (25 mg total) by mouth 3 (three) times a day 90tablet 11 lidocaine (ASPERCREME) 4 % adhesive patch,medicated Place 2 patches on the skin daily 20 patch 0 methocarbamoL (ROBAXIN) 750 mg tablet Take 1 tablet (750 mg total) by mouth 3 (three) times a day 90 tablet 0 ondansetron ODT (ZOFRAN-ODT) 4 mg disintegrating tablet Take 1 tablet (4 mg total) by mouth every 8(eight) hours as needed for nausea or vomiting 10 tablet 0 oxyCODONE (ROXICODONE) 10 mg tablet Take 1 tablet (10 mg total) by mouth every 4 (four) hours as needed for pain 20 tablet 0 polyethylene glycol (MIRALAX) 17 gram/dose bulk powder Take 17 g by mouth daily as needed (constipation) QUEtiapine (SEROquel) 50 mg tablet Take 1 tablet (50 mg total) by mouth nightly 30 tablet 0 senna-docusate (PERICOLACE) 8.6-50 mg Take 2 tablets by mouth 2 (two) times a day To prevent constipation 40 tablet 0 tamsulosin (FLOMAX) 0.4 mg extended release capsule Take 1 capsule (0.4 mg total) by mouth daily 30capsule 0 Hemodynamics: MAP (mmHg): [60-105] 81 Objective Physical exam: Neuro: awake, alert, oriented x4, CAM (-), moves all extremities and follows commands. Strength 5/5to all extremities. Cardiac: NSR 80s, RRR, S1 S2, periphery warm, pulses palpable distally Pulm: on NC, lungs clear bilaterally, respirations even and unlabored GI: abdomen round, soft, nontender, active bowel sounds : voids Skin: [place], warm, dry Assessment /Plan NEURO: #Acute Pain - lower back pain since prior admission - Scheduled Lopez 300 TID ; tylenol 1g q6h ; Robaxin 1g q8h ; x3 lido patches - Wean prn oxy to 7.5 q6h, DC dilaudid #Insomnia/Sleep Hygiene - Seroquel weaned to 25 Qpm ; home med CARDIAC: #Ty B Aortic Dissection - s/p TEVAR on 06/05/23 (graft terminates above celiac take off) ; return post op for pain/HTN - CT 06/13 no change in aneurysm, no stent migration, no incr in false lumen perfusion - non operative per Vascular surgery - monitor neuro status - Home ASA #PSA of left fem art - s/p vascular access - monitor peripheral pulses ; Q4 N/V checks per Vasc Surg - no current surgical intervention - no activity restriction per vascular team (ok to get to chair and ambulate) #Hypertensive Emergency - Off cleviprex 06/20 x24h ; DC'd TG trend - Cardiology consulted ; appreciate recs - SBP goal 120-140, HR goal <70 - DC Clonidine ; DC Spironolactone ; Holding Hydralazine for hypotension - Amlod 10 daily, coreg 37.5 BID, capto 50 TID, [Hydral 100 TID HELD] - PRN Labetalol 5mg PRN for HR > 80 or SBP > 120 - no Anibal US needed given recent CTA with patent renal arteries - adrenal sources of refractory HTN workup with Anibal/Josemanuel/DHEA-s/ser metaneph pending ; cortisol low PULMONARY: - No active ICU issues - on room air ; nasal cannula for Sats >92% - IS/pulm toilet q1h GI/NUTRITION: #Diet - regular diet - doc/miralax BID - Having BMs RENAL: - No active ICU issues - daily BMP ; trend UOP - Home Flomax ENDOCRINE: - no active ICU issues - BG checks per ICU protocol HEMATOLOGY: #ABLA - resolved - Hbg stable - Daily CBC ; Hbg stable - Consider transfusion for Hgb < 7 or for s/s active bleeding w/ hemodynamic instability #DVT PPx - Lovenox INFECTIOUS DISEASE: #Leukocytosis - resolved #R/O endovascular graft infection vs dural infection - WBC normal ; no fevers ; trend daily CBC/Temp - CT without discitis or osteomyelitis on 06/13 - MRI 06/13 also without discitis or ostemyelitis - ID following ; appreciate recs - C/Cefe DC'd per ID recs - Cx data and Imaging without infection ; BCx final NGTD MUSCULOSKELETAL: #Activity - OOBTC and ambulate as able - no activity restriction per vascular team (ok to get to chair and ambulate) ICU SoC/PROPHYLAXIS: DVT PPx: lovenox SUPPx: n/a ; diet SDUPPx: OOBTC TID and as tolerated CODE: Full DISPO: TTF to 7500 ; awaiting bed availability ; pending BP fluctuations/hypotension Dank Villa MD MS Section of Acute and Critical Care Surgery [facility] Critical Care Performed by: Dank Villa MD Authorized by: Dank Villa MD CRITICAL CARE: Team: OTHER Shift: AM Level of Billing: Critical Care My time spent with this patient was 75 minutes: Critical Provider Statement: I have seen and examined the patient on this day of service. I have reviewed and confirmed the history, physical exam, laboratory and radiologic data as documented in thesigned ICU note. I have reviewed and discussed my treatment plan with the ICU team and other medical/service consultant staff, making frequent assessments and decisions [...] or life-threatening deterioration of the following conditions: I spent time documenting in the medical record, I spent time discussing the management of this critically ill patient with consultants and the medical staff and I spent time reviewing and interpreting data from bedside monitors, laboratory results, and imaging ANY LAUNDRY WORKER * Rosey Fine MD - 06/22/2023 9:09 AM CST Vascular Surgery Daily Progress Patient Name/MRN: Eriberto Chau [id number] Treatment Team: Vascular Surgery- Attending: Faustino Herrera MD Today's Date: 06/22/2023 Room/Bed: [id number] Admit Date: 06/13/2023 Code Status: Full Code Events Over Last 24 Hours: SBP within goal range mostly 140-160 on PO meds. Neuromotor intact. Denies any back pain this morning. Denies abdominal, chest pain. Left groin pain resolved. Allergies Allergen Reactions Amoxicillin Hives Current Facility-Administered Medications Medication Dose Route Frequency Provider Last Rate Last Admin acetaminophen (TYLENOL) tablet 1,000 mg 1,000 mg oral Q6H [facility] Dank Villa MD 1,000 mg at 06/22/23 0606 amLODIPine (NORVASC) tablet 10 mg 10 mg oral Daily Sreekanth Armstrong NP 10 mg at 06/22/23 0838 captopriL (CAPOTEN) tablet 50 mg 50 mg oral TID Cristobal Cote MD 50 mg at 06/22/23 0831 Carrier Fluids for Secondary Infusion - 0.9% Sodium Chloride 30 mL intravenous PRN Mateo Diaz NP 30 mL at 06/17/23 0129 carvediloL (COREG) tablet 37.5 mg 37.5 mg oral BID with meals (bkfst, dinner) Cristobal Cote MD 37.5 mg at 06/22/23 0830 [Held by Provider] cloNIDine (CATAPRES) tablet 0.1 mg 0.1 mg oral BID Cristobal Cote MD 0.1 mg at 06/21/23 0814 docusate sodium (COLACE) capsule 100 mg 100 mg oral BID Mateo Diaz PROFESSOR OF NURSING 100 mg at 06/22/23 0831 enoxaparin (LOVENOX) syringe 40 mg 40 mg subcutaneous Daily-2100 Mateo Diaz PROFESSOR OF NURSING 40 mg at 06/21/23 2130 gabapentin (NEURONTIN) capsule 300 mg 300 mg oral TID Sreekanth Armstrong NP 300 mg at 06/22/23 0831 [Held by Provider] hydrALAZINE (APRESOLINE) tablet 100 mg 100 mg oral TID Mateo Diaz PROFESSOR OF NURSING 100 mg at 06/21/23 0814 HYDROmorphone (DILAUDID) injection 0.5 mg 0.5 mg intravenous Q3H PRN Dank Villa MD labetaloL (NORMODYNE,TRANDATE) injection 5 mg 5 mg intravenous Q2H PRN Dank Vilal MD Lactated Ringer's (LR) infusion 10 mL/hr intravenous Continuous Mateo Diaz NP 10 mL/hr at 06/21/23 1131 10 mL/hr at 06/21/23 1131 lidocaine (ASPERCREME) 4 % patch 3 patch 3 patch transdermal Q24H Dank Villa MD 3 patch at 06/21/23 1317 methocarbamoL (ROBAXIN) tablet 1,000 mg 1,000 mg oral Q8H Dank Villa MD 1,000 mg at 06/22/23 0831 ondansetron (ZOFRAN) injection 4 mg 4 mg intravenous Q6H PRN Mateo Diaz NP 4 mg at 06/15/23 0841 oxyCODONE (ROXICODONE) tablet 10 mg 10 mg oral Q4H PRN Dank Villa MD 10 mg at 06/22/23 0607 polyethylene glycol (MIRALAX) packet 17 g 17 g oral BID Sreekanth Armstrong NP 17 g at 06/22/23 0829 QUEtiapine (SEROquel) tablet 50 mg 50 mg oral Nightly Sreekanth Armstrong NP 50 mg at 06/21/23 2130 senna (SENOKOT) tablet 1 tablet 1 tablet oral BID Mateo Daiz NP 1 tablet at 06/22/23 0831 sodium chloride 0.9% solution 3-12 mL/hr intra-catheter Continuous Mateo Diaz NP 3 mL/hr at 06/22/23 0700 3 mL/hr at 06/22/23 0700 [Held by Provider] spironolactone (ALDACTONE) tablet 25 mg 25 mg oral Daily Dank Villa MD 25 mg at 06/21/23 0815 tamsulosin (FLOMAX) extended release capsule 0.4 mg 0.4 mg oral Daily with dinner Dank Villa MD 0.4 mg at 06/21/23 1805 traZODone (DESYREL) tablet 50 mg 50 mg oral Nightly PRN Dank Villa MD 50 mg at 06/21/23 2242 Objective Vitals: 24hr Min/Max: Temp Min: 36.8 ??C (98.2 ??F) Max: 37.1 ??C (98.8 ??F) Pulse Min: 69 Max: 91 BP Min: 64/57 Max: 142/89 Resp Min: 8 Max: 22 SpO2 Min: 95 % Max: 100 % Most Recent : Vitals: 06/22/23 0700 BP: 109/85 Pulse: 89 Resp: 14 Temp: SpO2: 97% I/O last 2 completed shifts: In: 2071 [P.O.:1500; I.V.:72; IV Piggyback:500] Out: 1600 [Urine:1600] I/O this shift: In: 3 [I.V.:3] Out: - Physical Exam: General appearance: appears stated age Constitutional: No acute distress Eyes: EOMI, anicteric Cardiovascular: Normal rate, regular rhythm Right Radial: palpable Right Femoral: palpable Right DP: palpable Left Radial: palpable Left Femoral: palpable Left DP: palpable Respiratory: non-labored breathing GI: Soft, non-tender; non-distended. No pusatile abdominal mass Muskuloskeletal: Extremities warm, sensation and motor function intact Neuro: Alert and oriented x4, non-focal Lab/Radiology/Diagnostic Review: Laboratory review: Lab results in the last 12 hours: Recent Results (from the past 12 hour(s)) CBC without differential Collection Time: 06/22/23 1:09 AM Result Value Ref Range WBC 8.5 3.8 - 9.9 K/cumm Hgb 9.6 (L) 13.0 - 17.5 g/dL Hct 29.8 (L) 38.9 - 50.3 % Plt 454 (H) 150 - 400 K/cumm MPV 8.9 (L) 9.1 - 12.3 fL RBC 3.36 (L) 4.30 - 5.80 M/cumm MCV 88.7 81.3 - 96.4 fL MCH 28.6 27.1 - 33.3 pg MCHC 32.2 (L) 32.3 - 35.7 g/dL RDW CV 13.9 11.1 - 14.9 % RDW SD 45.1 35.7 - 48.1 fL NRBC abs 0.00 0.00 - 0.01 K/cumm Magnesium Collection Time: 06/22/23 1:09 AM Result Value Ref Range Magnesium 2.1 1.4 - 2.5 mg/dL Phosphorus Collection Time: 06/22/23 1:09 AM Result Value Ref Range Phosphorus, pl 4.4 2.3 - 4.5 mg/dL Basic metabolic panel Collection Time: 06/22/23 1:09 AM Result Value Ref Range Sodium 137 135 - 145 mmol/L Potassium, pl 4.2 3.3 - 4.9 mmol/L Chloride 100 97 - 110 mmol/L CO2 26 22 - 32 mmol/L Anion gap 11 2 - 15 mmol/L BUN 18 6 - 25 mg/dL Creatinine 0.85 0.80 - 1.30 mg/dL Glucose 102 70 - 199 mg/dL Calcium 9.9 8.5 - 10.3 mg/dL eGFR Collection Time: 06/22/23 1:09 AM Result Value Ref Range eGFR >90 >=60 mL/min/1.73 m2 Assessment/Plan Eriberto Chau is a 33 y.o. male with a history of type B aortic dissection s/p TBE, complicated byuncontrolled hypertension at home, readmitted with abdominal pain and nausea over a week ago, foundto have new entry tear distal to previous TBE graft, with signs of malperfusion, s/p TEVAR and dissection stent placement 06/05. Readmitted again from home with subjective fevers and chills, cultures so far negative. - OK to DC home from ICU - Final oral BP medication regimen per Cardiology - Continue SBP 140-160 - No further vascular surgical intervention planned at this time - Diet, activity as tolerated - Follow up in clinic in 1 month. Rosey Fine MD Vascular Surgery Fellow [phone] Cosigned by Faustino Herrera MD at 06/22/2023 9:15 AM COMPANY LAUNDRY WORKER ANY LAUNDRY WORKER ANY LAUNDRY WORKER * Rosey Nance - 06/21/2023 10:29 AM CST Occupational Therapy Occupational Therapy Initial Assessment NOTE:This is a summary note for the grande assessments completed during the evaluation session. For full details, review chart review for all flowsheets documented on by this Occupational Therapist on this date. Vital signs documented in vital signs flowsheet. Assessment Assessment Problem List: Decreased functional mobility, Decreased ADL independence Barriers to Discharge: None Plan Plan Plan: Discharge, If this is the last note, consider this the discharge summary OT Recommendation and Plan Recommendation/Plan OT Recommendation: Home with intermittent assist Patient at high risk for: Injury due to reduced functional status, Falls OT Frequency during current admission: Discharge from this Service Comments: Pt. declines further OT need at this time. Pt. reports he has no concerns with being discharged home. Progress during current admission: Discontinue OT OT - OK to Discharge: Yes OT Evaluation Complete: Yes General Information General Chart Reviewed: Yes Session Type: Evaluation (and discharge from OT) OT Received On: 06/21/23 Safe Environment: Arm band checked, Patient found in supine Subjective: Agreeable to Therapy Family/Caregiver Present: Yes (significant other present) Occupational Therapy-Patient Goal: Pt. agrees with OT plan to discharge Precautions Home Living Home Living Type of Home: House Home Layout: One level, Basement Home Access: Stairs to enter with rails (3 CRISSY) Entrance Stairs-Rails: Both Entrance Stairs-Number of Steps: 3-4 Bathroom Shower/Tub: Tub/shower unit Bathroom Toilet: Standard Bathroom Equipment: Hand-held shower, Shower chair Home Mobility Equipment-Available: Walker Home Mobility Equipment-Currently Using: Walker Prior Function Prior Function Level of [place]: Independent functional transfers, Independent with ambulation, Needs assistance with ADLs Lives With: Family, Significant other (Girlfriend, 7 kids) Receives Help From: Family Driving: No Mode of Transportation: Driven by others ADL Assistance: Needs assistance (with LB dressing) Vocational/Occupation: Unemployed Fall within the last 6 months: No Activities of Daily Living LE Dressing LE Dressing: Where assessed: Sitting, Chair LE Dressing: Level of assistance: Independent Toilet Transfers Toilet Transfer From: Bed Toilet Transfer Type: To Toilet Transfer to: (chair with arms, sim) Toilet Transfer Technique: Ambulating Toilet Transfer: Equipment: No device Toilet Transfers: Independent Pain Pain Assessment Pain Assessment: 0-10 Pain Score: 7 Pain Location: Back (Lumbar) Pain Interventions: RN Notified Cognition Cognition Arousal/Alertness: Alert, Appropriate responses to stimuli Attention Span: Appears intact Memory: Appears intact Current communication: Appears Intact Orientation : Oriented X4 (person, place, time, situation) Following Commands: Follows all commands and directions without difficulty Compliance/Behavior: Easy to engage 6 Clicks Daily Activity - 6 Clicks Putting on and taking off regular lower body clothing: None Bathing: None Toileting: None Putting on and taking off upper body clothing: None Personal Grooming: None Eating Meals: None Total Score (range 6-24): 24 Score Interpretation: 24 Balance Static Sitting Balance Static Sitting-Balance Support: Feet supported, No upper extremity supported Static Sitting-Sitting Surface: Bed, Chair Static Sitting-Level of Assistance: Independent Dynamic Sitting Balance Dynamic Sitting-Balance Support: Feet supported, No upper extremity supported Dynamic Sitting-Balance: Forward lean, Reaching for objects Dynamic Sitting-Sitting Surface: Chair Dynamic Sitting-Level of Assistance: Independent Static Standing Balance Static Standing-Balance Support: No upper extremity supported Static Standing-Standing Surface: Floor Static Standing-Level of Assistance: Independent Dynamic Standing Balance Dynamic Standing-Balance Support: No upper extremity supported Dynamic Standing-Balance: Forward lean Dynamic Standing-Standing Surface: Floor Dynamic Standing-Level of Assistance: Independent Transfers Transfers Transfer: Yes Transfer 1 Transfer From 1: Sit Transfer Type 1: To and from Transfer to 1: Stand Technique 1: Sit to stand, Stand to sit Transfer Device 1: Hand held assist, No device Transfer Level of Assistance 1: Independent Transfers 2 Trials/Comments 2: functional mobility: NT 2/2 pt pain status, pt reports completed mobility with PT earlier Bed Mobility Bed Mobility Bed Mobility: Yes Bed Mobility 1 Bed Mobility From 1: Supine Bed Mobility Type 1: To Bed Mobility to 1: Edge of bed Level of Assistance 1: Independent RUE Assessment RUE Assessment RUE Assessment: Within Functional Limits LUE Assessment LUE Assessment LUE Assessment: Within Functional Limits Safe Environment End of Session Safe Environment End of Therapy Session: Patient left in chair, RN notified, Call light within reach Other Comments Other Comments Comments: Pt. declines further OT need at this time. Pt. reports he has no concerns with being discharged home. OT Goals Multi-Disciplinary Problems (from Occupational Therapy) Active Problems Not on file Cosigned by Mariel Pope OT at 06/21/2023 11:22 AM COMPANY LAUNDRY WORKER ANY LAUNDRY WORKER ANY LAUNDRY WORKER * Dank Villa MD - 06/21/2023 9:52 AM CSTAssociated Order(s): Critical Care Post-Procedure Diagnose(s): Infrarenal abdominal aortic aneurysm, without rupture (HCC) ICU Progress Note ICU Gold Service: Subjective Patient is a 33 y.o. male presented to the ICU with chief complaint of Back pain and hypertensive emergency. HPI: Patient is a 33 y.o. male admitted to the hospital on 06/13/2023 12:39 PM with/following: type B aortic dissection ICU course: 06/04: Admit for hypertensive urgency and flank pain. Impulse control. 06/05: TEVAR: L groin access, placed new graft within old graft that extends over distal portion of previous TEVAR graft that covers the new entry tear and stops above celiac artery. Placement of new uncovered stent graft to visceral aorta as the false lumen was compressing the true lumen. He is still filling false lumen. Lumbar drain in place. 06/07: Lumbar drain removed. 06/11: D/C home. 06/13: Re admitted for worsening back pain, HTN, and subjective fever/chills. Interval History: NAEO ; pain continues but well controlled Off clev x24h No other issues Past Medical History: Diagnosis Date Hypertension Kidney [...] for wheezing 1 each 0 amLODIPine (NORVASC) 5 mg tablet Take 1 tablet (5 mg total) by mouth daily 30 tablet 11 aspirin 81 mg chewable tablet Take 1 tablet (81 mg total) by mouth daily 30 tablet 11 carvediloL (COREG) 25 mg tablet Take 1 tablet (25 mg total) by mouth 2 (two) times a day with meals60 tablet 11 gabapentin (NEURONTIN) 300 mg capsule Take 1 capsule (300 mg total) by mouth 3 (three) times a day 90 capsule 11 hydrALAZINE (APRESOLINE) 25 mg tablet Take 1 tablet (25 mg total) by mouth 3 (three) times a day 90tablet 11 lidocaine (ASPERCREME) 4 % adhesive patch,medicated Place 2 patches on the skin daily 20 patch 0 methocarbamoL (ROBAXIN) 750 mg tablet Take 1 tablet (750 mg total) by mouth 3 (three) times a day 90 tablet 0 ondansetron ODT (ZOFRAN-ODT) 4 mg disintegrating tablet Take 1 tablet (4 mg total) by mouth every 8(eight) hours as needed for nausea or vomiting 10 tablet 0 oxyCODONE (ROXICODONE) 10 mg tablet Take 1 tablet (10 mg total) by mouth every 4 (four) hours as needed for pain 20 tablet 0 polyethylene glycol (MIRALAX) 17 gram/dose bulk powder Take 17 g by mouth daily as needed (constipation) QUEtiapine (SEROquel) 50 mg tablet Take 1 tablet (50 mg total) by mouth nightly 30 tablet 0 senna-docusate (PERICOLACE) 8.6-50 mg Take 2 tablets by mouth 2 (two) times a day To prevent constipation 40 tablet 0 tamsulosin (FLOMAX) 0.4 mg extended release capsule Take 1 capsule (0.4 mg total) by mouth daily 30capsule 0 Hemodynamics: MAP (mmHg): [55-88] 84 Objective Physical exam: Neuro: awake, alert, oriented x4, CAM (-), moves all extremities and follows commands. Strength 5/5to all extremities. Cardiac: NSR 80s, RRR, S1 S2, periphery warm, pulses palpable distally Pulm: on NC, lungs clear bilaterally, respirations even and unlabored GI: abdomen round, soft, nontender, active bowel sounds : voids Skin: [place], warm, dry Assessment /Plan NEURO: #Acute Pain - lower back pain since prior admission - Scheduled Lopez 300 TID ; tylenol 1g q6h - increase robaxin to 1g every 8 hours ; lidoderm patches to x3 - Wean prn oxy to 10 q6h, dilaudid to 0.5 q3 - consult placed to pain team for regimen assistance prior to DC #Insomnia/Sleep Hygiene - Seroquel 50 Qpm ; home med CARDIAC: #Ty B Aortic Dissection - s/p TEVAR on 06/05/23 (graft terminates above celiac take off) ; return post op for pain/HTN - CT 06/13 no change in aneurysm, no stent migration, no incr in false lumen perfusion - non operative per Vascular surgery - monitor neuro status #PSA of left fem art - s/p vascular access - monitor peripheral pulses ; Q4 N/V checks per Vasc Surg - no current surgical intervention - no activity restriction per vascular team (ok to get to chair and ambulate) #Hypertensive Emergency - Off cleviprex - TG elevated to 216 ; now off cleviprex - Cardiology consulted ; appreciate recs - SBP goal 120-140, HR goal <70 - Added Clonidine 0.1 TID and increased Captopril overnight - Clonidine 0.1 TID ; Spirono 25 daily ; amlod 10 daily, coreg 37.5 BID, capto 50TID, Hydral 100 TID - PRN Labetalol 20 mg PRN for HR > 80 or SBP > 120 - Home ASA - no Anibal US needed given recent CTA with patent renal arteries - adrenal sources of refractory HTN workup with Anibal/Josemanuel/DHEA-s/ser metaneph pending ; cortisol low PULMONARY: - No active ICU issues - on room air ; nasal cannula for Sats >92% - IS/pulm toilet q1h GI/NUTRITION: #Diet - regular diet - doc/miralax BID - Having BMs RENAL: - No active ICU issues - daily BMP ; DC CMPs ; trend UOP - Home Flomax ENDOCRINE: - no active ICU issues - BG checks per ICU protocol HEMATOLOGY: #ABLA - resolved - Hbg stable - Daily CBC ; Hbg stable - Consider transfusion for Hgb < 7 or for s/s active bleeding w/ hemodynamic instability #DVT PPx - Lovenox INFECTIOUS DISEASE: #Leukocytosis - resolved #R/O endovascular graft infection vs dural infection - WBC normal ; no fevers ; trend daily CBC/Temp - CT without discitis or osteomyelitis on 06/13 - MRI 06/13 also without discitis or ostemyelitis - ID following ; appreciate recs - C/Cefe DC'd per ID recs - Cx data and Imaging without infection ; BCx final NGTD MUSCULOSKELETAL: #Activity - OOBTC and ambulate as able - no activity restriction per vascular team (ok to get to chair and ambulate) ICU SoC/PROPHYLAXIS: DVT PPx: lovenox SUPPx: n/a ; diet SDUPPx: OOBTC TID and as tolerated CODE: Full DISPO: TTF to 7500 ; awaiting bed availability Dank Villa MD MS Section of Acute and Critical Care Surgery [facility] in [place] Critical Care Performed by: Dank Villa MD Authorized by: Dank Villa MD CRITICAL CARE: Team: OTHER Shift: AM Level of Billing: Critical Care My time spent with this patient was 35 minutes: Critical Provider Statement: I have seen and examined the patient on this day of service. I have reviewed and confirmed the history, physical exam, laboratory and radiologic data as documented in thesigned ICU note. I have reviewed and discussed my treatment plan with the ICU team and other medical/service consultant staff, making frequent assessments and decisions [...] or life-threatening deterioration of the following conditions: I spent time documenting in the medical record, I spent time discussing the management of this critically ill patient with consultants and the medical staff and I spent time reviewing and interpreting data from bedside monitors, laboratory results, and imaging ANY LAUNDRY WORKER ANY LAUNDRY WORKER * Christina Landa PT - 06/21/2023 8:24 AM CST Physical Therapy Physical Therapy Initial Assessment NOTE: This is a summary note for the grande assessments completed during the evaluation session. For full details, review chart review for all flowsheets documented on by this physical therapist on thisdate. Vital signs documented in vital signs flowsheet. Assessment Assessment Prognosis: Good Barriers to Discharge: None Plan Plan Plan : Discharge, If this is the last note, consider this the discharge summary PT Recommendation and Plan Recommendation/Plan PT Recommendation/Plan: Home with intermittent assist PT Frequency during current admission: Discharge from this Service Progress during current admission: Discontinue PT PT - Next Appointment: 06/20/23 PT - OK to Discharge: Yes PT Evaluation Complete: Yes General Information General Chart Reviewed: Yes Session Type: Evaluation (and dc from PT) PT Missed Visit Reason: Other (comment) (SBP remains elevated, unable to participate in PT interventions) Family/Caregiver Present: No Physical Therapy-Patient Goal: get home Prior Function Prior Function Level of [place]: Independent functional transfers, Independent with ambulation (Mod I with WWat all times) Lives With: Significant other, Family Receives Help From: Family (automotive glazier) Fall within the last 6 months: No Home Living Home Living Type of Home: House Home Layout: One level Home Access: Stairs to enter with rails Entrance Stairs-Rails: Both Entrance Stairs-Number of Steps: 3 Home Mobility Equipment-Available: Wheeled walker Home Mobility Equipment-Currently Using: Wheeled walker Precautions Precautions Precautions: None Pain Pain Assessment Pain Assessment: 0-10 Patient's Stated Pain Goal: 7 Pain Location: Back (Lumbar) Pain Interventions: RN Notified (Cayla) Cognition Cognition Arousal/Alertness: Alert, Appropriate responses to stimuli Orientation : Oriented X4 (person, place, time, situation) Following Commands: Follows all commands and directions without difficulty Compliance/Behavior: Easy to engage 6 Clicks Basic Mobility - 6 Click How much difficulty does the patient have: Turning over in bed: None How much difficulty does the patient currently have: Sitting down and standing up from a chair witharms?: None How much difficulty does the patient have: Moving from lying on back to sitting on the side of the bed?: None How much difficulty does the patient have: Moving to and from a bed to a chair including wheelchair?: None How much help does the patient currently need: Walk in hospital room?: None How much help from another person does the patient currently need: Climbing 3-5 steps with a railing?: None Total 6 Click Score (range 6-24): 24 Score Interpretation: 24 Bed Mobility Bed Mobility 1 Bed Mobility From 1: Supine Bed Mobility Type 1: To Bed Mobility to 1: Edge of bed Level of Assistance 1: Independent Transfers Transfer 1 Transfer From 1: Sit Transfer Type 1: To and from Transfer to 1: Stand Technique 1: Sit to stand, Stand to sit Transfer Device 1: No device Transfer Level of Assistance 1: Modified Independent Transfers 2 Transfer From 2: Bed Transfer Type 2: To Transfer to 2: Chair with arms Technique 2: Stand and step Transfer Device 2: No device Transfer Level of Assistance 2: Independent Balance Static Sitting Balance Static Sitting-Balance Support: No upper extremity supported, Feet supported Static Sitting-Sitting Surface: Bed Static Sitting-Level of Assistance: Distant supervision Static Standing Balance Static Standing-Balance Support: Bilateral upper extremity supported Static Standing-Standing Surface: Floor Static Standing-Level of Assistance: Distant supervision Ambulation Ambulation 1 Distance (ft) 1: 500 Surface 1: Level tile Device 1: Wheeled walker Assistance 1: Modified Independent Ambulation Comments 1: no LOB, no significant gait defitcs Stairs Stairs Stairs: Yes Stair Comments: x3, SBA, no HR RLE Assessment RLE Assessment RLE Assessment: Within Functional Limits LLE Assessment LLE Assessment LLE Assessment: Within Functional Limits Safe Environment End of Session Safe Environment End of Therapy Session: Patient left in chair, RN notified, Call light within reach, Overbed table within reach Other Comments Other Comments Other PT Comments: VSS throughout session, tolerated well and is without acute mobility deficts. ANY LAUNDRY WORKER * Joaquín Abarca MD - 06/21/2023 7:58 AM CST Cardiology Daily Progress Note Patient Name: Eriberto Chau Provider: Joaquín Abarca MD : 1990 Date of Service: 06/21/2023 CHIEF COMPLAINT: Hypertension SUBJECTIVE: No complaints of chest pain or sob MEDICATIONS: acetaminophen, 1,000 mg, oral, Q6H SUSAN amLODIPine, 10 mg, oral, Daily captopriL, 50 mg, oral, TID carvediloL, 37.5 mg, oral, BID with meals (bkfst, dinner) cloNIDine, 0.1 mg, oral, BID docusate sodium, 100 mg, oral, BID enoxaparin, 40 mg, subcutaneous, Daily-2100 gabapentin, 300 mg, oral, TID hydrALAZINE, 100 mg, oral, TID lidocaine, 2 patch, transdermal, Q24H methocarbamoL, 750 mg, oral, QID polyethylene glycol, 17 g, oral, BID QUEtiapine, 50 mg, oral, Nightly senna, 1 tablet, oral, BID spironolactone, 25 mg, oral, Daily tamsulosin, 0.4 mg, oral, Daily with dinner REVIEW OF SYSTEMS: General: No fever, chills, malaise or fatigue Eyes: No alterations in visual acuity ENT: No alterations in auditory acuity, no sore throat Pulmonary: No dyspnea, cough or hemoptysis Cardiac: No chest pain, orthopnea, PND or palpitations GI: No nausea, vomiting, diarrhea or constipation PHYSICAL EXAM: Vitals: 06/21/23 0400 06/21/23 0500 06/21/23 0600 06/21/23 0700 BP: 116/54 111/61 120/68 BP Location: Right arm Right arm Right arm Patient Position: Lying Lying Lying Pulse: 76 75 74 81 Resp: 16 19 17 14 Temp: TempSrc: SpO2: 96% 96% 96% 99% Weight: Height: Intake/Output Summary (Last 24 hours) at 06/21/2023 0755 Last data filed at 06/21/2023 0700 Gross per 24 hour Intake 669 ml Output 1460 ml Net -791 ml General: Well appearing, No pain or distress, well nourished Eyes: BERNARDO/EOMI, Conjuctiva Clear Neck: Supple, no thyromegaly, no adenopathy Respiratory: Clear to ausculation bilaterally; Cardiovascular: Normal PMI, RRR, normal S1 and S2. No S3 or S4. No murmers or rubs. Gastrointestinal: soft, non-tender abdomen, no HSM, no masses, Extremities: no cyanosis or clubbing or edema Musculoskeletal: no obvious joint deformities Skin: no obvious rash or bruising Psychiatric: normal affect Neurologic: awake/alert LAB/RADIOLOGY/DIAGNOSTIC REVIEW: Recent Labs Lab Units 06/21/23 0401 06/20/23 0022 06/18/23 2352 HEMOGLOBIN g/dL 8.8* 8.6* 8.5* HEMATOCRIT % 27.8* 27.5* 27.0* WBC K/cumm 7.3 9.0 9.6 PLATELETS K/cumm 477* 467* 422* Recent Labs Lab Units 06/21/23 0401 06/20/23 0022 06/18/23 2352 SODIUM mmol/L 135 136 138 POTASSIUM PLASMA mmol/L 4.1 4.1 3.7 CHLORIDE mmol/L 99 100 104 CO2 mmol/L 25 25 23 ANIONGAP mmol/L 11 11 11 GLUCOSE mg/dL 98 135 128 BUN SERUM mg/dL 17 16 17 CREATININE mg/dL 0.87 0.86 0.94 CALCIUM mg/dL 9.8 9.1 8.4* ALBUMIN g/dL 3.7 3.3* 3.1* ALK PHOS Units/L 90 84 81 ALT Units/L 10 12 12 AST Units/L 11 11 12 BILIRUBIN TOTAL mg/dL 0.3 0.3 0.3 Telemetry my personal review: sinus rhythm Assessment/Plan HTN (hypertension) Assessment & Plan BP stable at present. Recommend discontinuation of the diltiazem and continue amlodipine (as opposed to giving two calcium channel blockers) ANY LAUNDRY WORKER * Joaquín Abarca MD - 06/20/2023 8:33 PM CST Cardiology/Aortopathy Consult Daily Progress Note Patient Name: Eriberto Chau Provider: Joaquín Abarca MD : 1990 Date of Service: 06/20/2023 CHIEF COMPLAINT: Hypertension SUBJECTIVE: Pt denies any chest pain or shortness of breath. The chronic low back back has not worsened. He wasinitiated on clonidine and remains on diltiazem. MEDICATIONS: acetaminophen, 1,000 mg, oral, Q6H SUSAN amLODIPine, 10 mg, oral, Daily captopriL, 50 mg, oral, TID carvediloL, 37.5 mg, oral, BID with meals (bkfst, dinner) cloNIDine, 0.1 mg, oral, BID dilTIAZem, 30 mg, oral, Q6H docusate sodium, 100 mg, oral, BID enoxaparin, 40 mg, subcutaneous, Daily-2100 gabapentin, 300 mg, oral, TID hydrALAZINE, 100 mg, oral, TID lidocaine, 2 patch, transdermal, Q24H methocarbamoL, 750 mg, oral, QID polyethylene glycol, 17 g, oral, BID QUEtiapine, 50 mg, oral, Nightly senna, 1 tablet, oral, BID spironolactone, 25 mg, oral, Daily tamsulosin, 0.4 mg, oral, Daily with dinner REVIEW OF SYSTEMS: General: No fever, chills, malaise or fatigue Eyes: No alterations in visual acuity ENT: No alterations in auditory acuity, no sore throat Pulmonary: No dyspnea, cough or hemoptysis Cardiac: No chest pain, orthopnea, PND or palpitations GI: No nausea, vomiting, diarrhea or constipation Musculoskeletal: +low back pain Skin: no rashes Neuro: No headaches Endocrine: No cold or heat intolerance Heme: no excessive bleeding or bruising PHYSICAL EXAM: Vitals: 06/20/23 1600 06/20/23 1700 06/20/23 1800 06/20/23 1900 BP: 124/62 138/53 120/55 122/49 BP Location: Patient Position: Pulse: 81 73 83 74 Resp: 21 9 13 9 Temp: 36.8 ??C (98.2 ??F) TempSrc: Oral SpO2: 95% 98% 98% 98% Weight: Height: Intake/Output Summary (Last 24 hours) at 06/20/20232029 Last data filed at 06/20/2023 1900 Gross per 24 hour Intake 269 ml Output 1735 ml Net -1466 ml General: Well appearing, No pain or distress, well nourished Eyes: BERNARDO/EOMI, Conjuctiva Clear Neck: Supple, no thyromegaly, no adenopathy Respiratory: Clear to ausculation bilaterally; no wheezing/rales/rhonchi; respirations nonlabored Cardiovascular: Normal PMI, RRR, normal S1 and S2. No S3 or S4. No murmers or rubs. Gastrointestinal: soft, non-tender abdomen, no HSM, no masses, Abdominal aortic pulsation not enlarged. Extremities: no cyanosis or clubbing or edema Musculoskeletal: no obvious joint deformities Skin: no obvious rash or bruising Psychiatric: normal affect Neurologic: awake/alert, LAB/RADIOLOGY/DIAGNOSTIC REVIEW: Recent Labs Lab Units 06/20/232106/18/23235106/18/23 0304 HEMOGLOBIN g/dL 8.6* 8.5* 13.2 HEMATOCRIT % 27.5* 27.0* 40.9 WBC K/cumm 9.0 9.6 6.4 PLATELETS K/cumm 467* 422* 328 Recent Labs Lab Units 06/20/232106/18/23235106/18/23 0304 SODIUM mmol/L 136 138 136 POTASSIUM PLASMA mmol/L 4.1 3.7 4.3 CHLORIDE mmol/L 100 104 104 CO2 mmol/L 25 23 21* ANIONGAP mmol/L 11 11 11 GLUCOSE mg/dL 135 128 113 BUN SERUM mg/dL 16 17 13 CREATININE mg/dL 0.86 0.94 0.84 CALCIUM mg/dL 9.1 8.4* 8.5 ALBUMIN g/dL 3.3* 3.1* 2.8* ALK PHOS Units/L 84 81 87 ALT Units/L 12 12 18 AST Units/L 11 12 34 BILIRUBIN TOTAL mg/dL 0.3 0.3 0.2 Telemetry my personal review: sinus rhythm. : Assessment/Plan HTN (hypertension) Assessment & Plan BP improving. Recommend continue medications and follow up bp, except recommend discontinuation of the diltiazem as he is already on a calcium channel louie, amlodipine ANY LAUNDRY WORKER * Darren Busby, RD - 06/20/2023 12:42 PM CST Nutrition Screen Note Pt. Screened for nutritional assessment secondary to LOS Past Medical History: Diagnosis Date Hypertension Kidney stones Past Surgical History: Procedure Laterality Date ABDOMINAL AORTIC ANEURYSM REPAIR Anthropometrics Weight: 98.3 kg (216 lb 11.4 oz) Admission Weight : 97.5 kg Weight Change: -2.70 kg (-5.95 lbs) IBW/kg (Calculated) : 72.6 kg Height: 175.3 cm (5' 9 ) Weight in (lb) to have BMI = 25: 168.9 BMI (Calculated): 32 Adult Malnutrition Scoring Tool (MST) What diet do you follow at home?: regular Have You Recently Lost Weight Without Trying?: Yes (Comment) How Much Weight Have You Lost?: 24 - 33 lb Have you been eating poorly because of a decreased appetite?: Yes Malnutrition Screening Tool (MST) Score: 4 Dietary Orders (From admission, onward) Start Ordered 06/13/231819 Adult Diet Regular Diet effective now Question: ([facility]) Diet type Answer: Regular 06/13/231821 Pt presents w/ back pain and found to be in hypertensive emergency s/p TEVAR (06/05). Wt Readings from Last 6 Encounters: 06/17/23 98.3 kg (216 lb 11.4 oz) 06/11/23 100.7 kg (222 lb 0.1 oz) 05/16/23 99.2 kg (218 lb 11.2 oz) 05/06/23 111.6 kg (246 lb 0.5 oz) Assessment / Impression: RD screened pt d/t LOS. Pt is ordered for a Regular diet, eating at his baseline and also has family with food items at bedside. He is having soft BM, no issues with constipation or diarrhea, miralaxand senna are intermittently held. Note his usual BW was 225-230 lbs, diuresed down to 212 lbs, currently 216 lbs and note order for Spironolactone 25 mg/day. Pt is net +3.1L this admission. I/O; -659, -2305 mL UOP Noted labs 06/20; Na 136, K 4.1, BUN 16, Cr 0.86, Ca 9.1, Mg 2.1, and PO4 4.0. RD will continue to monitor plan of care, PO intake and adequacy, nutrition- related labs, BM, and weight changes for further nutrition intervention as indicated. Darren Busby MS, RD, [facility], N [phone] Death Surveys Coder-Weekend: [phone] ANY LAUNDRY WORKER * Dank Villa MD - 06/20/2023 10:00 AM CSTAssociated Order(s): Critical Care Post-Procedure Diagnose(s): Infrarenal abdominal aortic aneurysm, without rupture (HCC) ICU History and Physical ICU Gold Service: Subjective Patient is a 33 y.o. male presented to the ICU with chief complaint of Back pain and hypertensive emergency. HPI: Patient is a 33 y.o. male admitted to the hospital on 06/13/2023 12:39 PM with/following: type B aortic dissection ICU course: 06/04: Admit for hypertensive urgency and flank pain. Impulse control. 06/05: TEVAR: L groin access, placed new graft within old graft that extends over distal portion of previous TEVAR graft that covers the new entry tear and stops above celiac artery. Placement of new uncovered stent graft to visceral aorta as the false lumen was compressing the true lumen. He is still filling false lumen. Lumbar drain in place. 06/07: Lumbar drain removed. 06/11: D/C home. 06/13: Re admitted for worsening back pain, HTN, and subjective fever/chills. Interval History: NAEO ; pain continues but well controlled Off clev x24h No other issues Past Medical History: Diagnosis Date Hypertension Kidney [...] for wheezing 1 each 0 amLODIPine (NORVASC) 5 mg tablet Take 1 tablet (5 mg total) by mouth daily 30 tablet 11 aspirin 81 mg chewable tablet Take 1 tablet (81 mg total) by mouth daily 30 tablet 11 carvediloL (COREG) 25 mg tablet Take 1 tablet (25 mg total) by mouth 2 (two) times a day with meals60 tablet 11 gabapentin (NEURONTIN) 300 mg capsule Take 1 capsule (300 mg total) by mouth 3 (three) times a day 90 capsule 11 hydrALAZINE (APRESOLINE) 25 mg tablet Take 1 tablet (25 mg total) by mouth 3 (three) times a day 90tablet 11 lidocaine (ASPERCREME) 4 % adhesive patch,medicated Place 2 patches on the skin daily 20 patch 0 methocarbamoL (ROBAXIN) 750 mg tablet Take 1 tablet (750 mg total) by mouth 3 (three) times a day 90 tablet 0 ondansetron ODT (ZOFRAN-ODT) 4 mg disintegrating tablet Take 1 tablet (4 mg total) by mouth every 8(eight) hours as needed for nausea or vomiting 10 tablet 0 oxyCODONE (ROXICODONE) 10 mg tablet Take 1 tablet (10 mg total) by mouth every 4 (four) hours as needed for pain 20 tablet 0 polyethylene glycol (MIRALAX) 17 gram/dose bulk powder Take 17 g by mouth daily as needed (constipation) QUEtiapine (SEROquel) 50 mg tablet Take 1 tablet (50 mg total) by mouth nightly 30 tablet 0 senna-docusate (PERICOLACE) 8.6-50 mg Take 2 tablets by mouth 2 (two) times a day To prevent constipation 40 tablet 0 tamsulosin (FLOMAX) 0.4 mg extended release capsule Take 1 capsule (0.4 mg total) by mouth daily 30capsule 0 Hemodynamics: MAP (mmHg): [64-95] 93 Objective Physical exam: Neuro: awake, alert, oriented x4, CAM (-), moves all extremities and follows commands. Strength 5/5to all extremities. Cardiac: NSR 80s, RRR, S1 S2, periphery warm, pulses palpable distally Pulm: on NC, lungs clear bilaterally, respirations even and unlabored GI: abdomen round, soft, nontender, active bowel sounds : voids Skin: [place], warm, dry Assessment /Plan NEURO: #Acute Pain - lower back pain since prior admission - Scheduled Lopez 300 TID ; Robaxin 750 QID ; lidoderm patches x2 ; tylenol 1g q6h - PRN oxy 15, wean dilaudid #Insomnia/Sleep Hygiene - Seroquel 50 Qpm ; home med CARDIAC: #Ty B Aortic Dissection - s/p TEVAR on 06/05/23 (graft terminates above celiac take off) ; return post op for pain/HTN - CT 06/13 no change in aneurysm, no stent migration, no incr in false lumen perfusion - non operative per Vascular surgery - monitor neuro status #PSA of left fem art - s/p vascular access - monitor peripheral pulses ; Q4 N/V checks per Vasc Surg - no current surgical intervention - no activity restriction per vascular team (ok to get to chair and ambulate) #Hypertensive Emergency - Off cleviprex - TG elevated to 216 ; recheck 06/21 AM - Cardiology consulted ; appreciate recs - SBP goal 120-140, HR goal <70 - Added Clonidine 0.1 TID and increased Captopril overnight - Clonidine 0.1 TID ; Spirono 25 daily ; amlod 10 daily, coreg 37.5 BID, Dilt 30 q6, capto 50TID, Hydral 100 TID - PRN Labetalol 20 mg PRN for HR > 80 or SBP > 120 - Home ASA - DC Ada - no Anibal US needed given recent CTA with patent renal arteries - adrenal sources of refractory HTN workup with Anibal/Josemanuel/DHEA-s/ser metaneph pending ; cortisol low PULMONARY: - No active ICU issues - on room air ; nasal cannula for Sats >92% - IS/pulm toilet q1h GI/NUTRITION: #Diet - regular diet - doc/miralax BID - Having BMs RENAL: - No active ICU issues - daily BMP ; trend UOP - Home Flomax ENDOCRINE: - no active ICU issues - BG checks per ICU protocol HEMATOLOGY: #ABLA - resolved - Hbg stable - Daily CBC ; Hbg stable - Consider transfusion for Hgb < 7 or for s/s active bleeding w/ hemodynamic instability #DVT PPx - Lovenox INFECTIOUS DISEASE: #Leukocytosis - resolved #R/O endovascular graft infection vs dural infection - WBC normal ; no fevers ; trend daily CBC/Temp - CT without discitis or osteomyelitis on 06/13 - MRI 06/13 also without discitis or ostemyelitis - ID following ; appreciate recs - C/Cefe DC'd per ID recs - Cx data and Imaging without infection ; BCx final NGTD MUSCULOSKELETAL: #Activity - OOBTC and ambulate as able - no activity restriction per vascular team (ok to get to chair and ambulate) ICU SoC/PROPHYLAXIS: DVT PPx: lovenox SUPPx: n/a ; diet SDUPPx: OOBTC TID and as tolerated CODE: Full DISPO: TTF to 7500 ; awaiting bed availability Dank Villa MD [place] Section of Acute and Critical Care Surgery [facility] in [place] Critical Care Performed by: Dank Villa MD Authorized by: Dank Villa MD CRITICAL CARE: Team: OTHER Shift: AM Level of Billing: Critical Care My time spent with this patient was 35 minutes: Critical Provider Statement: I have seen and examined the patient on this day of service. I have reviewed and confirmed the history, physical exam, laboratory and radiologic data as documented in thesigned ICU note. I have reviewed and discussed my treatment plan with the ICU team and other medical/service consultant staff, making frequent assessments and decisions [...] or life-threatening deterioration of the following conditions: I spent time documenting in the medical record, I spent time discussing the management of this critically ill patient with consultants and the medical staff and I spent time reviewing and interpreting data from bedside monitors, laboratory results, and imaging ANY LAUNDRY WORKER ANY LAUNDRY WORKER * Rosey Fine MD - 06/20/2023 9:03 AM CST Vascular Surgery Daily Progress Patient Name/MRN: Eriberto Chau [id number] Treatment Team: Vascular Surgery- Attending: Faustino Herrera MD Today's Date: 06/20/2023 Room/Bed: [id number] Admit Date: 06/13/2023 Code Status: Full Code Events Over Last 24 Hours: SBP within goal range mostly 140-160 on PO meds. Neuromotor intact. Has some low back pain, but states not new. Denies abdominal, chest pain. Left groin pain nearly resolved. Allergies Allergen Reactions Amoxicillin Hives Current Facility-Administered Medications Medication Dose Route Frequency Provider Last Rate Last Admin acetaminophen (TYLENOL) tablet 1,000 mg 1,000 mg oral Q6H [facility] Dank Villa MD 1,000 mg at 06/20/23 0511 amLODIPine (NORVASC) tablet 10 mg 10 mg oral Daily Sreekanth Armstrong NP 10 mg at 06/20/23 0816 captopriL (CAPOTEN) tablet 50 mg 50 mg oral TID Cristobal Cote MD 50 mg at 06/20/23 0816 Carrier Fluids for Secondary Infusion - 0.9% Sodium Chloride 30 mL intravenous PRN Mateo Diaz NP 30 mL at 06/17/23 0129 carvediloL (COREG) tablet 37.5 mg 37.5 mg oral BID with meals (bkfst, dinner) Cristobal Cote MD 37.5 mg at 06/20/23 0816 clevidipine (CLEVIPREX) 50 mg/100 mL (0.5 mg/mL) (premix) 0-32 mg/hr intravenous Titrated Mateo Diaz NP Stopped at 06/19/23 0700 cloNIDine (CATAPRES) tablet 0.1 mg 0.1 mg oral BID Cristobal Cote MD 0.1 mg at 06/20/23 0816 dilTIAZem (CARDIZEM) tablet 30 mg 30 mg oral Q6H Kristine Underwood NP 30 mg at 06/20/23 0511 docusate sodium (COLACE) capsule 100 mg 100 mg oral BID Mateo Diaz PROFESSOR OF NURSING 100 mg at 06/20/23 0816 enoxaparin (LOVENOX) syringe 40 mg 40 mg subcutaneous Daily-2100 Mateo Diaz PROFESSOR OF NURSING 40 mg at 06/19/23 203 gabapentin (NEURONTIN) capsule 300 mg 300 mg oral TID Sreekanth Armstrong NP 300 mg at 06/20/23 0816 hydrALAZINE (APRESOLINE) tablet 100 mg 100 mg oral TID Mateo Diaz PROFESSOR OF NURSING 100 mg at 06/20/23 0816 HYDROmorphone (DILAUDID) injection 1 mg 1 mg intravenous Q2H PRN Dalton Baker MD 1 mg at 06/20/23 0901 labetaloL (NORMODYNE,TRANDATE) injection 20 mg 20 mg intravenous Q2H PRN Sreekanth Armstrong NP 20 mg at 06/19/23 0249 Lactated Ringer's (LR) infusion 10 mL/hr intravenous Continuous Mateo Diaz NP Stopped at 06/13/23 2119 lidocaine (ASPERCREME) 4 % patch 2 patch 2 patch transdermal Q24H Dank Villa MD 2 patch at 06/19/23 1146 methocarbamoL (ROBAXIN) tablet 750 mg 750 mg oral QID Hortensia Guy MD 750 mg at 06/20/23 0816 ondansetron (ZOFRAN) injection 4 mg 4 mg intravenous Q6H PRN Mateo Diaz NP 4 mg at 06/15/23 0841 oxyCODONE (ROXICODONE) tablet 15 mg 15 mg oral Q4H PRN Mehul Brooks MD 15 mg at 06/20/23 0631 polyethylene glycol (MIRALAX) packet 17 g 17 g oral BID Sreekanth Armstrong NP 17 g at 06/19/23 0816 QUEtiapine (SEROquel) tablet 50 mg 50 mg oral Nightly Sreekanth Armstrong NP 50 mg at 06/19/23 2032 senna (SENOKOT) tablet 1 tablet 1 tablet oral BID Mateo Diaz NP 1 tablet at 06/19/23 0816 sodium chloride 0.9% solution 3-12 mL/hr intra-catheter Continuous Mateo Diaz NP 3 mL/hr at 06/20/23 0700 3 mL/hr at 06/20/23 0700 spironolactone (ALDACTONE) tablet 25 mg 25 mg oral Daily Dank Villa MD 25 mg at 816 tamsulosin (FLOMAX) extended release capsule 0.4 mg 0.4 mg oral Daily with dinner Dank Villa MD 0.4 mg at 06/19/23 1743 Objective Vitals: 24hr Min/Max: Temp Min: 36.9 ??C (98.4 ??F) Max: 36.9 ??C (98.5 ??F) Pulse Min: 66 Max: 95 BP Min: 105/53 Max: 149/66 Resp Min: 7 Max: 22 SpO2 Min: 93 % Max: 100 % Most Recent : Vitals: 06/20/23 0700 BP: Pulse: 77 Resp: 8 Temp: SpO2: 96% I/O last 2 completed shifts: In: 1646.3 [P.O.:1560; I.V.:86.3] Out: 2305 [Urine:2305] I/O this shift: In: 3 [I.V.:3] Out: - Physical Exam: General appearance: appears stated age Constitutional: No acute distress Eyes: EOMI, anicteric Cardiovascular: Normal rate, regular rhythm Right Radial: palpable Right Femoral: palpable Right DP: palpable Left Radial: palpable Left Femoral: palpable Left DP: palpable Respiratory: non-labored breathing GI: Soft, non-tender; non-distended. No pusatile abdominal mass Muskuloskeletal: Extremities warm, sensation and motor function intact Neuro: Alert and oriented x4, non-focal Lab/Radiology/Diagnostic Review: Laboratory review: Lab results in the last 12 hours: Recent Results (from the past 12 hour(s)) CBC without differential Collection Time: 06/20/23 12:22 AM Result Value Ref Range WBC 9.0 3.8 - 9.9 K/cumm Hgb 8.6 (L) 13.0 - 17.5 g/dL Hct 27.5 (L) 38.9 - 50.3 % Plt 467 (H) 150 - 400 K/cumm MPV 9.2 9.1 - 12.3 fL RBC 3.08 (L) 4.30 - 5.80 M/cumm MCV 89.3 81.3 - 96.4 fL MCH 27.9 27.1 - 33.3 pg MCHC 31.3 (L) 32.3 - 35.7 g/dL RDW CV 14.1 11.1 - 14.9 % RDW SD 45.7 35.7 - 48.1 fL NRBC abs 0.00 0.00 - 0.01 K/cumm Magnesium Collection Time: 06/20/23 12:22 AM Result Value Ref Range Magnesium 2.1 1.4 - 2.5 mg/dL Phosphorus Collection Time: 06/20/23 12:22 AM Result Value Ref Range Phosphorus, pl 4.0 2.3 - 4.5 mg/dL Comprehensive metabolic panel Collection Time: 06/20/23 12:22 AM Result Value Ref Range Sodium 136 135 - 145 mmol/L Potassium, pl 4.1 3.3 - 4.9 mmol/L Chloride 100 97 - 110 mmol/L CO2 25 22 - 32 mmol/L Anion gap 11 2 - 15 mmol/L BUN 16 6 - 25 mg/dL Creatinine 0.86 0.80 - 1.30 mg/dL Glucose 135 70 - 199 mg/dL Calcium 9.1 8.5 - 10.3 mg/dL Bilirubin, total 0.3 0.1 - 1.2 mg/dL Protein, pl 7.7 6.5 - 8.5 g/dL Albumin 3.3 (L) 3.5 - 5.0 g/dL Alk phos 84 40 - 130 Units/L ALT 12 7 - 55 Units/L AST 11 10 - 50 Units/L Cortisol Collection Time: 06/20/23 12:22 AM Result Value Ref Range Cortisol 3.8 (L) 4.8 - 19.5 mcg/dL eGFR Collection Time: 06/20/23 12:22 AM Result Value Ref Range eGFR >90 >=60 mL/min/1.73 m2 Assessment/Plan Eriberto Chau is a 33 y.o. male with a history of type B aortic dissection s/p TBE, complicated byuncontrolled hypertension at home, readmitted with abdominal pain and nausea over a week ago, foundto have new entry tear distal to previous TBE graft, with signs of malperfusion, s/p TEVAR and dissection stent placement 06/05. Readmitted again from home with subjective fevers and chills, cultures so far negative. - Appreciate CTICU care - Appreciate Cards recs: Clonidine, spironolactone initiated with good response - Continue SBP 140-160 - No further vascular surgical intervention planned at this time - Diet, activity as tolerated - q4h nv checks - Transfer to 7500 floor bed. Rosey Fine MD Vascular Surgery Fellow [phone] Cosigned by Faustino Herrera MD at 06/21/2023 7:32 AM COMPANY LAUNDRY WORKER ANY LAUNDRY WORKER ANY LAUNDRY WORKER * Dank Villa MD - 06/19/2023 11:34 AM CSTAssociated Order(s): Critical Care Post-Procedure Diagnose(s): Infrarenal abdominal aortic aneurysm, without rupture (HCC) ICU History and Physical ICU Gold Service: Subjective Patient is a 33 y.o. male presented to the ICU with chief complaint of Back pain and hypertensive emergency. HPI: Patient is a 33 y.o. male admitted to the hospital on 06/13/2023 12:39 PM with/following: type B aortic dissection ICU course: 06/04: Admit for hypertensive urgency and flank pain. Impulse control. 06/05: TEVAR: L groin access, placed new graft within old graft that extends over distal portion of previous TEVAR graft that covers the new entry tear and stops above celiac artery. Placement of new uncovered stent graft to visceral aorta as the false lumen was compressing the true lumen. He is still filling false lumen. Lumbar drain in place. 06/07: Lumbar drain removed. 06/11: D/C home. 06/13: Re admitted for worsening back pain, HTN, and subjective fever/chills. Interval History: HTN and back on Cleviprex gtt overnight added clonidine and increased captopril Still some mild pain issues Past Medical History: Diagnosis Date Hypertension Kidney [...] for wheezing 1 each 0 amLODIPine (NORVASC) 5 mg tablet Take 1 tablet (5 mg total) by mouth daily 30 tablet 11 aspirin 81 mg chewable tablet Take 1 tablet (81 mg total) by mouth daily 30 tablet 11 carvediloL (COREG) 25 mg tablet Take 1 tablet (25 mg total) by mouth 2 (two) times a day with meals60 tablet 11 gabapentin (NEURONTIN) 300 mg capsule Take 1 capsule (300 mg total) by mouth 3 (three) times a day 90 capsule 11 hydrALAZINE (APRESOLINE) 25 mg tablet Take 1 tablet (25 mg total) by mouth 3 (three) times a day 90tablet 11 lidocaine (ASPERCREME) 4 % adhesive patch,medicated Place 2 patches on the skin daily 20 patch 0 methocarbamoL (ROBAXIN) 750 mg tablet Take 1 tablet (750 mg total) by mouth 3 (three) times a day 90 tablet 0 ondansetron ODT (ZOFRAN-ODT) 4 mg disintegrating tablet Take 1 tablet (4 mg total) by mouth every 8(eight) hours as needed for nausea or vomiting 10 tablet 0 oxyCODONE (ROXICODONE) 10 mg tablet Take 1 tablet (10 mg total) by mouth every 4 (four) hours as needed for pain 20 tablet 0 polyethylene glycol (MIRALAX) 17 gram/dose bulk powder Take 17 g by mouth daily as needed (constipation) QUEtiapine (SEROquel) 50 mg tablet Take 1 tablet (50 mg total) by mouth nightly 30 tablet 0 senna-docusate (PERICOLACE) 8.6-50 mg Take 2 tablets by mouth 2 (two) times a day To prevent constipation 40 tablet 0 tamsulosin (FLOMAX) 0.4 mg extended release capsule Take 1 capsule (0.4 mg total) by mouth daily 30capsule 0 Hemodynamics: MAP (mmHg): [67-98] 67 Objective Physical exam: Neuro: awake, alert, oriented x4, CAM (-), moves all extremities and follows commands. Strength 5/5to all extremities. Cardiac: NSR 80s, RRR, S1 S2, periphery warm, pulses palpable distally Pulm: on NC, lungs clear bilaterally, respirations even and unlabored GI: abdomen round, soft, nontender, active bowel sounds : voids Skin: [place], warm, dry Assessment /Plan NEURO: #Acute Pain - lower back pain since prior admission - Scheduled Lopez 300 TID ; Robaxin 750 QID ; lidoderm patches x2 ; tylenol 1g q6h - PRN oxy 15, dilaudid 1 q2h #Insomnia/Sleep Hygiene - Seroquel 50 Qpm ; home med CARDIAC: #Ty B Aortic Dissection - s/p TEVAR on 06/05/23 (graft terminates above celiac take off) ; return post op for pain/HTN - CT 06/13 no change in aneurysm, no stent migration, no incr in false lumen perfusion - non operative per Vascular surgery - monitor neuro status #PSA of left fem art - s/p vascular access - monitor peripheral pulses ; change to Q4 N/V checks per Vasc Surg - no current surgical intervention - no activity restriction per vascular team (ok to get to chair and ambulate) #Hypertensive Emergency - wean cleviprex as able ; off this AM - TG elevated to 216 ; recheck 06/21 Am - Cardiology consulted ; appreciate recs - SBP goal 120-140, HR goal <70 - Added Clonidine 0.1 TID and increased Captopril overnight - continue: Spironolactone 25 daily ; amlod 10 daily, coreg 37.5 BID, Dilt 30 q6, captopril 50TID, Hydral 100 TID - PRN Labetalol 20 mg PRN for HR > 80 or SBP > 120 - Home ASA PULMONARY: - No active ICU issues - on room air ; nasal cannula for Sats >92% - IS/pulm toilet q1h GI/NUTRITION: #Diet - regular diet - doc/miralax BID - Having BMs RENAL: - No active ICU issues - daily BMP ; trend UOP - Home Flomax ENDOCRINE: - no active ICU issues - BG checks per ICU protocol HEMATOLOGY: #ABLA - resolved - Hbg stable - Daily CBC ; Hbg 06/18 dropped from 13 to 8.5 w/o s/sx bleeding - Consider transfusion for Hgb < 7 or for s/s active bleeding w/ hemodynamic instability #DVT PPx - Lovenox INFECTIOUS DISEASE: #Leukocytosis - resolved #R/O endovascular graft infection vs dural infection - WBC normal ; no fevers ; trend daily CBC/Temp - CT without discitis or osteomyelitis on 06/13 - MRI 06/13 also without discitis or ostemyelitis - ID following ; appreciate recs - C/Cefe DC'd per ID recs - Cx data and Imaging without infection ; BCx final NGTD MUSCULOSKELETAL: #Activity - OOBTC and ambulate as able - no activity restriction per vascular team (ok to get to chair and ambulate) ICU SoC/PROPHYLAXIS: DVT PPx: lovenox SUPPx: n/a ; diet SDUPPx: OOBTC TID and as tolerated CODE: Full DISPO: ICU pending Impulse control and 24h off Cleviprex Dank Villa MD [place] Section of Acute and Critical Care Surgery [facility] in [place] Critical Care Performed by: Dank Villa MD Authorized by: Dank Villa MD CRITICAL CARE: Team: OTHER Shift: AM Level of Billing: Critical Care My time spent with this patient was 75 minutes: Critical Provider Statement: I have seen and examined the patient on this day of service. I have reviewed and confirmed the history, physical exam, laboratory and radiologic data as documented in thesigned ICU note. I have reviewed and discussed my treatment plan with the ICU team and other medical/service consultant staff, making frequent assessments and decisions [...] or life-threatening deterioration of the following conditions: I spent time documenting in the medical record, I spent time discussing the management of this critically ill patient with consultants and the medical staff and I spent time reviewing and interpreting data from bedside monitors, laboratory results, and imaging ANY LAUNDRY WORKER * Guerrero Dempsey MD - 06/19/2023 9:52 AM CST Vascular Surgery Daily Progress Patient Name/MRN: Eriberto Chau [id number] Treatment Team: Vascular Surgery- Attending: Faustino Herrera MD Today's Date: 06/19/2023 Room/Bed: [id number] Admit Date: 06/13/2023 Code Status: Full Code Events Over Last 24 Hours: Clevidipne gtt weaned off this morning Patient resting comfortably No fever/chills, WBC 10 (11) Allergies Allergen Reactions Amoxicillin Hives Current Facility-Administered Medications Medication Dose Route Frequency Provider Last Rate Last Admin acetaminophen (TYLENOL) tablet 1,000 mg 1,000 mg oral Q6H [facility] Dank Villa MD 1,000 mg at 06/19/23 0457 amLODIPine (NORVASC) tablet 10 mg 10 mg oral Daily Sreekanth Armstrong NP 10 mg at 06/19/23 0815 captopriL (CAPOTEN) tablet 50 mg 50 mg oral TID Cristobal Cote MD 50 mg at 06/19/23 0816 Carrier Fluids for Secondary Infusion - 0.9% Sodium Chloride 30 mL intravenous PRN Mateo Diaz NP 30 mL at 06/17/23 0129 carvediloL (COREG) tablet 37.5 mg 37.5 mg oral BID with meals (bkfst, dinner) Cristobal Cote MD 37.5 mg at 06/19/23 0816 clevidipine (CLEVIPREX) 50 mg/100 mL (0.5 mg/mL) (premix) 0-32 mg/hr intravenous Titrated Mateo Diaz NP Stopped at 06/19/23 0700 cloNIDine (CATAPRES) tablet 0.1 mg 0.1 mg oral BID Cristobal Cote MD 0.1 mg at 06/19/23 0457 dilTIAZem (CARDIZEM) tablet 30 mg 30 mg oral Q6H Kristine Underwood NP 30 mg at 06/19/23 0334 docusate sodium (COLACE) capsule 100 mg 100 mg oral BID Mateo Diaz NP 100 mg at 06/19/23 0816 enoxaparin (LOVENOX) syringe 40 mg 40 mg subcutaneous Daily-2100 Mateo Diaz NP 40 mg at 06/18/232012 gabapentin (NEURONTIN) capsule 300 mg 300 mg oral TID Sreekanth Armstrong NP 300 mg at 06/19/23 0816 hydrALAZINE (APRESOLINE) tablet 100 mg 100 mg oral TID Mateo Diaz NP 100 mg at 06/19/23 0816 HYDROmorphone (DILAUDID) injection 1 mg 1 mg intravenous Q2H PRN Dalton Baker MD 1 mg at 06/19/23 0705 labetaloL (NORMODYNE,TRANDATE) injection 20 mg 20 mg intravenous Q2H PRN Sreekanth Armstrong NP 20 mg at 06/19/23 0249 Lactated Ringer's (LR) infusion 10 mL/hr intravenous Continuous Mateo Diaz NP Stopped at 06/13/232118 lidocaine (ASPERCREME) 4 % patch 2 patch 2 patch transdermal Q24H Dank Villa MD 2 patch at 06/18/23 1157 methocarbamoL (ROBAXIN) tablet 750 mg 750 mg oral QID Hortensia Guy MD 750 mg at 06/19/23 0816 ondansetron (ZOFRAN) injection 4 mg 4 mg intravenous Q6H PRN Mateo Diaz NP 4 mg at 06/15/23 0841 oxyCODONE (ROXICODONE) tablet 15 mg 15 mg oral Q4H PRN Mehul Brooks MD 15 mg at 06/19/23 0900 polyethylene glycol (MIRALAX) packet 17 g 17 g oral BID Sreekanth Armstrong NP 17 g at 06/19/23 0816 QUEtiapine (SEROquel) tablet 50 mg 50 mg oral Nightly Sreekanth Armstrong NP 50 mg at 06/18/232012 senna (SENOKOT) tablet 1 tablet 1 tablet oral BID Mateo Diaz NP 1 tablet at 06/19/23 0816 sodium chloride 0.9% solution 3-12 mL/hr intra-catheter Continuous Mateo Diaz NP 3 mL/hr at 06/19/23 0900 3 mL/hr at 06/19/23 0900 spironolactone (ALDACTONE) tablet 25 mg 25 mg oral Daily Dank Villa MD 25 mg at 816 tamsulosin (FLOMAX) extended release capsule 0.4 mg 0.4 mg oral Daily with dinner Dank Villa MD 0.4 mg at 06/18/23 1811 Objective Vitals: 24hr Min/Max: Temp Min: 36.8 ??C (98.2 ??F) Max: 36.9 ??C (98.5 ??F) Pulse Min: 71 Max: 92 BP Min: 106/70 Max: 166/70 Resp Min: 6 Max: 21 SpO2 Min: 90 % Max: 99 % Most Recent : Vitals: 06/19/23 0900 BP: 148/68 Pulse: 73 Resp: 17 Temp: SpO2: 91% I/O last 2 completed shifts: In: 2036.6 [P.O.:1190; I.V.:302.6; IV Piggyback:545] Out: 1725 [Urine:1725] I/O this shift: In: 263.3 [P.O.:240; I.V.:23.3] Out: 425 [Urine:425] Physical Exam: General appearance: appears stated age Constitutional: No acute distress Eyes: EOMI, anicteric Cardiovascular: Normal rate, regular rhythm Right Radial: palpable Right Femoral: palpable Right DP: palpable Left Radial: palpable Left Femoral: palpable Left DP: palpable Respiratory: non-labored breathing GI: Soft, non-tender; non-distended. No pusatile abdominal mass Muskuloskeletal: Extremities warm, sensation and motor function intact Neuro: Alert and oriented x4, non-focal Lab/Radiology/Diagnostic Review: Laboratory review: Lab results in the last 12 hours: Recent Results (from the past 12 hour(s)) CBC without differential Collection Time: 06/18/23 11:52 PM Result Value Ref Range WBC 9.6 3.8 - 9.9 K/cumm Hgb 8.5 (L) 13.0 - 17.5 g/dL Hct 27.0 (L) 38.9 - 50.3 % Plt 422 (H) 150 - 400 K/cumm MPV 9.2 9.1 - 12.3 fL RBC 2.98 (L) 4.30 - 5.80 M/cumm MCV 90.6 81.3 - 96.4 fL MCH 28.5 27.1 - 33.3 pg MCHC 31.5 (L) 32.3 - 35.7 g/dL RDW CV 14.1 11.1 - 14.9 % RDW SD 46.4 35.7 - 48.1 fL NRBC abs 0.00 0.00 - 0.01 K/cumm Magnesium Collection Time: 06/18/23 11:52 PM Result Value Ref Range Magnesium 2.0 1.4 - 2.5 mg/dL Phosphorus Collection Time: 06/18/23 11:52 PM Result Value Ref Range Phosphorus, pl 3.8 2.3 - 4.5 mg/dL Comprehensive metabolic panel Collection Time: 06/18/23 11:52 PM Result Value Ref Range Sodium 138 135 - 145 mmol/L Potassium, pl 3.7 3.3 - 4.9 mmol/L Chloride 104 97 - 110 mmol/L CO2 23 22 - 32 mmol/L Anion gap 11 2 - 15 mmol/L BUN 17 6 - 25 mg/dL Creatinine 0.94 0.80 - 1.30 mg/dL Glucose 128 70 - 199 mg/dL Calcium 8.4 (L) 8.5 - 10.3 mg/dL Bilirubin, total 0.3 0.1 - 1.2 mg/dL Protein, pl 7.0 6.5 - 8.5 g/dL Albumin 3.1 (L) 3.5 - 5.0 g/dL Alk phos 81 40 - 130 Units/L ALT 12 7 - 55 Units/L AST 12 10 - 50 Units/L eGFR Collection Time: 06/18/23 11:52 PM Result Value Ref Range eGFR >90 >=60 mL/min/1.73 m2 Type and screen Collection Time: 06/18/23 11:58 PM Result Value Ref Range Ellen, indirect Negative ABO Rh A Positive Assessment/Plan Eriberto Cahu is a 33 y.o. male with a history of type B aortic dissection s/p TBE, complicated byuncontrolled hypertension at home, readmitted with abdominal pain and nausea over a week ago, foundto have new entry tear distal to previous TBE graft, with signs of malperfusion, s/p TEVAR and dissection stent placement 06/05. Readmitted again from home with subjective fevers and chills, cultures so far negative. - Appreciate CTICU care - Appreciate Cards recs: Clonidine, spironolactone initiated with good response - Continue SBP 140-160 - No further vascular surgical intervention planned at this time - Diet, activity as tolerated - q4h nv checks - TTF Guerrero Dempsey MD Cosigned by Faustino Herrera MD at 06/20/2023 7:33 AM COMPANY LAUNDRY WORKER ANY LAUNDRY WORKER ANY LAUNDRY WORKER * Dank Villa MD - 06/18/2023 11:38 AM CSTAssociated Order(s): Critical Care Post-Procedure Diagnose(s): Infrarenal abdominal aortic aneurysm, without rupture (HCC) ICU History and Physical ICU Gold Service: Subjective Patient is a 33 y.o. male presented to the ICU with chief complaint of Back pain and hypertensive emergency. HPI: Patient is a 33 y.o. male admitted to the hospital on 06/13/2023 12:39 PM with/following: type B aortic dissection ICU course: 06/04: Admit for hypertensive urgency and flank pain. Impulse control. 06/05: TEVAR: L groin access, placed new graft within old graft that extends over distal portion of previous TEVAR graft that covers the new entry tear and stops above celiac artery. Placement of new uncovered stent graft to visceral aorta as the false lumen was compressing the true lumen. He is still filling false lumen. Lumbar drain in place. 06/07: Lumbar drain removed. 06/11: D/C home. 06/13: Re admitted for worsening back pain, HTN, and subjective fever/chills. Interval History: Sleeping when seen Per RN has had issues with pain overnight Restarted on cleviprex for HTN Past Medical History: Diagnosis Date Hypertension Kidney [...] for wheezing 1 each 0 amLODIPine (NORVASC) 5 mg tablet Take 1 tablet (5 mg total) by mouth daily 30 tablet 11 aspirin 81 mg chewable tablet Take 1 tablet (81 mg total) by mouth daily 30 tablet 11 carvediloL (COREG) 25 mg tablet Take 1 tablet (25 mg total) by mouth 2 (two) times a day with meals60 tablet 11 gabapentin (NEURONTIN) 300 mg capsule Take 1 capsule (300 mg total) by mouth 3 (three) times a day 90 capsule 11 hydrALAZINE (APRESOLINE) 25 mg tablet Take 1 tablet (25 mg total) by mouth 3 (three) times a day 90tablet 11 lidocaine (ASPERCREME) 4 % adhesive patch,medicated Place 2 patches on the skin daily 20 patch 0 methocarbamoL (ROBAXIN) 750 mg tablet Take 1 tablet (750 mg total) by mouth 3 (three) times a day 90 tablet 0 ondansetron ODT (ZOFRAN-ODT) 4 mg disintegrating tablet Take 1 tablet (4 mg total) by mouth every 8(eight) hours as needed for nausea or vomiting 10 tablet 0 oxyCODONE (ROXICODONE) 10 mg tablet Take 1 tablet (10 mg total) by mouth every 4 (four) hours as needed for pain 20 tablet 0 polyethylene glycol (MIRALAX) 17 gram/dose bulk powder Take 17 g by mouth daily as needed (constipation) QUEtiapine (SEROquel) 50 mg tablet Take 1 tablet (50 mg total) by mouth nightly 30 tablet 0 senna-docusate (PERICOLACE) 8.6-50 mg Take 2 tablets by mouth 2 (two) times a day To prevent constipation 40 tablet 0 tamsulosin (FLOMAX) 0.4 mg extended release capsule Take 1 capsule (0.4 mg total) by mouth daily 30capsule 0 Hemodynamics: MAP (mmHg): [66-94] 82 Objective Physical exam: Neuro: awake, alert, oriented x4, CAM (-), moves all extremities and follows commands. Strength 5/5to all extremities. Cardiac: NSR 80s, RRR, S1 S2, periphery warm, pulses palpable distally Pulm: on NC, lungs clear bilaterally, respirations even and unlabored GI: abdomen round, soft, nontender, active bowel sounds : voids Skin: [place], warm, dry Assessment /Plan NEURO: #Acute Pain - lower back pain since prior admission - Scheduled Lopez 300 TID ; Robaxin 750 QID - add lidoderm patches x2 and scheduled tylenol - PRN oxy 15, dilaudid 1 q2h #Insomnia/Sleep Hygiene - Seroquel 50 Qpm ; home med CARDIAC: #Ty B Aortic Dissection - s/p TEVAR on 06/05/23 (graft terminates above celiac take off) ; return post op for pain/HTN - CT 06/13 no change in aneurysm, no stent migration, no incr in false lumen perfusion - non operative per Vascular surgery - monitor neuro status #PSA of left fem art - s/p vascular access - monitor peripheral pulses Q2 - no current surgical intervention - no activity restriction per vascular team (ok to get to chair and ambulate) #Hypertensive Emergency - wean cleviprex as able ; at 24 when seen this AM - TG elevated to 216 - Cardiology consulted ; appreciate recs - SBP goal 120-140, HR goal <70 - add spironolactone 25 daily today ; will consider 0.1 TID clonidine to assist Clev wean - continue: amlod 10 daily, coreg 37.5 BID, Dilt 30 q6, captopril 25TID, Hydral 100 TID - PRN Labetalol 20 mg PRN for HR > 80 or SBP > 120 - Home ASA PULMONARY: - No active ICU issues - on room air ; nasal cannula for Sats >92% - IS/pulm toilet q1h GI/NUTRITION: #Diet - regular diet - doc/miralax BID - Having BMs RENAL: - No active ICU issues - daily BMP ; trend UOP - Home Flomax ENDOCRINE: - no active ICU issues - BG checks per ICU protocol HEMATOLOGY: #ABLA - resolved - Hbg stable - Daily CBC - Consider transfusion for Hgb < 7 or for s/s active bleeding w/ hemodynamic instability #DVT PPx - Lovenox INFECTIOUS DISEASE: #Leukocytosis - resolved #R/O endovascular graft infection vs dural infection - WBC normal ; no fevers ; trend daily CBC/Temp - CT without discitis or osteomyelitis on 06/13 - MRI 06/13 also without discitis or ostemyelitis - ID following ; appreciate recs - on vacn/cefe ; will DC pend additional ID thoughts/recs - Cx data and Imaging without infection ; BCx final NGTD MUSCULOSKELETAL: #Activity - OOBTC and ambulate as able - no activity restriction per vascular team (ok to get to chair and ambulate) ICU SoC/PROPHYLAXIS: DVT PPx: lovenox SUPPx: n/a ; diet SDUPPx: OOBTC TID and as tolerated CODE: Full DISPO: ICU pending Impulse control Dank Villa MD MS Section of Acute and Critical Care Surgery [facility] in [place] Critical Care Performed by: Dank Villa MD Authorized by: Dank Villa MD CRITICAL CARE: Team: OTHER Shift: AM Level of Billing: Critical Care My time spent with this patient was 75 minutes: Critical Provider Statement: I have seen and examined the patient on this day of service. I have reviewed and confirmed the history, physical exam, laboratory and radiologic data as documented in thesigned ICU note. I have reviewed and discussed my treatment plan with the ICU team and other medical/service consultant staff, making frequent assessments and decisions [...] or life-threatening deterioration of the following conditions: I spent time documenting in the medical record, I spent time discussing the management of this critically ill patient with consultants and the medical staff and I spent time reviewing and interpreting data from bedside monitors, laboratory results, and imaging ANY LAUNDRY WORKER * Joaquín Abarca MD - 06/18/2023 8:00 AM CST Cardiology Daily Progress Note Patient Name: Eriberto Chau Provider: Joaquín Abarca MD : 1990 Date of Service: 06/18/2023 CHIEF COMPLAINT: Hypertension SUBJECTIVE: Patient with blood pressure improved over the past 48 hours with variable readings depending upon whether be from the arterial line or from the blood pressure machine on his arms. He is currently back on IV calcium channel louie therapy for blood pressure. He denies any chest pain or upper back pain. He has chronic low back pain. Renal function stable. MEDICATIONS: amLODIPine, 10 mg, oral, Daily captopriL, 25 mg, oral, TID carvediloL, 37.5 mg, oral, BID with meals (bkfst, dinner) cefepime, 2,000 mg, intravenous, Q8H SUSAN dilTIAZem, 30 mg, oral, Q6H docusate sodium, 100 mg, oral, BID enoxaparin, 40 mg, subcutaneous, Daily-2100 gabapentin, 300 mg, oral, TID hydrALAZINE, 100 mg, oral, TID methocarbamoL, 750 mg, oral, QID polyethylene glycol, 17 g, oral, BID QUEtiapine, 50 mg, oral, Nightly senna, 1 tablet, oral, BID vancomycin, 15 mg/kg, intravenous, Q8H REVIEW OF SYSTEMS: General: No fever, chills, malaise or fatigue Eyes: No alterations in visual acuity ENT: No alterations in auditory acuity, no sore throat Pulmonary: No dyspnea, cough or hemoptysis Cardiac: No chest pain, orthopnea, PND or palpitations GI: No nausea, vomiting, diarrhea or constipation Musculoskeletal: Positive for low back pain. Skin: no rashes Neuro: No headaches Endocrine: No cold or heat intolerance Heme: no excessive bleeding or bruising PHYSICAL EXAM: Vitals: 06/18/23 0400 06/18/23 0500 06/18/23 0600 06/18/23 0700 BP: 132/59 143/65 138/63 158/66 BP Location: Right arm Right arm Right arm Patient Position: Lying Lying Lying Pulse: 81 85 86 82 Resp: 12 11 14 11 Temp: 37 ??C (98.6 ??F) TempSrc: Oral SpO2: 94% 92% 90% 94% Weight: Height: Intake/Output Summary (Last 24 hours) at 06/18/2023 0757 Last data filed at 06/18/2023 0700 Gross per 24 hour Intake 3161.4 ml Output 4125 ml Net -963.6 ml General: Well appearing, No pain or distress, well nourished Eyes: BERNARDO/EOMI, Conjuctiva Clear Neck: Supple, no thyromegaly, no adenopathy Respiratory: Clear to ausculation bilaterally; no wheezing/rales/rhonchi; respirations nonlabored Cardiovascular: Normal PMI, RRR, normal S1 and S2. No S3 or S4. No murmers or rubs. Carotid upstrokes brisk bilaterally and without bruits. Gastrointestinal: soft, non-tender abdomen, no HSM, no masses, Extremities: no cyanosis or clubbing or edema Musculoskeletal: no obvious joint deformities Skin: no obvious rash or bruising Psychiatric: normal affect Neurologic: awake/alert LAB/RADIOLOGY/DIAGNOSTIC REVIEW: Recent Labs Lab Units 06/18/23 0304 06/17/23 0000 06/16/23 0000 HEMOGLOBIN g/dL 13.2 9.4* 9.7* HEMATOCRIT % 40.9 29.2* 29.9* WBC K/cumm 6.4 11.3* 9.6 PLATELETS K/cumm 328 470* 490* Recent Labs Lab Units 06/18/23 0304 06/17/23 0855 06/17/23 0000 06/16/23 0000 SODIUM mmol/L 136 -- 138 138 POTASSIUM PLASMA mmol/L 4.3 -- 3.7 3.0* CHLORIDE mmol/L 104 -- 107 105 CO2 mmol/L 21* -- 21* 23 ANIONGAP mmol/L 11 -- 10 10 GLUCOSE mg/dL 113 -- 117 127 POC GLUCOSE MONITOR -- < > -- -- BUN SERUM mg/dL 13 -- 7 9 CREATININE mg/dL 0.84 -- 0.71* 0.96 CALCIUM mg/dL 8.5 -- 8.3* 9.0 ALBUMIN g/dL 2.8* -- 3.2* 3.4* ALK PHOS Units/L 87 -- 92 92 ALT Units/L 18 -- 14 11 AST Units/L 34 -- 14 10 BILIRUBIN TOTAL mg/dL 0.2 -- 0.2 0.2 < > = values in this interval not displayed. XR Chest 1 View Result Date: 06/17/2023 Comparison 06/13/2023. 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 Heart size remains within normal limits. Cardiomediastinal silhouette stable. New focal right upper lung opacity may represent atelectasis. Attention on follow-up examination recommended. The left lung is clear. No pneumothorax or pleural effusion seen. Electronically signed by: James Alvarado M.D. Telemetry my personal review: Sinus rhythm Labs reviewed as above albumin 2.8 liver function tests normal creatinine 0.84 potassium 4.3 Assessment/Plan HTN (hypertension) Assessment & Plan Patient with continued hypertension. Blood pressure in the right arm levels are improved now in [id number] and 140s. Recommend consideration for adjustment of medications as follows. 1. Add spironolactone 25 mg a day 2. Consider adding clonidine 0.1 mg twice a day Dissection of aorta, unspecified portion of aorta (HCC) Assessment & Plan Aortic imaging stable on recent CT scan. Continue blood pressure control. ANY LAUNDRY WORKER * Rosey Fine MD - 06/17/2023 5:49 PM CST Vascular Surgery Daily Progress Patient Name/MRN: Eriberto Chau [id number] Treatment Team: Vascular Surgery- Attending: Faustino Herrera MD Today's Date: 06/17/2023 Room/Bed: [id number] Admit Date: 06/13/2023 Code Status: Full Code Events Over Last 24 Hours: No acute events overnight. SBP controlled this morning still on clevidipine. Denies abdominal, chest, back pain. Allergies Allergen Reactions Amoxicillin Hives Current Facility-Administered Medications Medication Dose Route Frequency Provider Last Rate Last Admin amLODIPine (NORVASC) tablet 10 mg 10 mg oral Daily Sreekanth Armstrong NP 10 mg at 06/17/23 0829 captopriL (CAPOTEN) tablet 25 mg 25 mg oral TID Deniz Ireland PA 25 mg at 06/17/23 1510 Carrier Fluids for Secondary Infusion - 0.9% Sodium Chloride 30 mL intravenous PRN Mateo Diaz, PROFESSOR OF NURSING 30 mL at 06/17/23 0129 carvediloL (COREG) tablet 37.5 mg 37.5 mg oral BID with meals (bkfst, dinner) Cristobal Cote MD 37.5 mg at 06/17/23 1717 cefepime (MAXIPIME) 2,000 mg/20 mL in sterile water (premix) 2,000 mg 2,000 mg intravenous Q8H SUSAN Mateo Diaz, PROFESSOR OF NURSING 240 mL/hr at 06/17/23 1337 2,000 mg at 06/17/23 1337 clevidipine (CLEVIPREX) 50 mg/100 mL (0.5 mg/mL) (premix) 0-32 mg/hr intravenous Titrated Mateo Diaz NP Stopped at 06/17/23 1600 dilTIAZem (CARDIZEM) tablet 30 mg 30 mg oral Q6H Kristine Underwood NP 30 mg at 06/17/23 1530 docusate sodium (COLACE) capsule 100 mg 100 mg oral BID Mateo Diaz NP 100 mg at 06/17/23 0840 enoxaparin (LOVENOX) syringe 40 mg 40 mg subcutaneous Daily-2100 Mateo Diaz NP 40 mg at 06/16/232017 gabapentin (NEURONTIN) capsule 300 mg 300 mg oral TID Sreekanth Armstrong NP 300 mg at 06/17/23 1510 hydrALAZINE (APRESOLINE) tablet 100 mg 100 mg oral TID Mateo Diaz PROFESSOR OF NURSING 100 mg at 06/17/23 1510 HYDROmorphone (DILAUDID) injection 1 mg 1 mg intravenous Q2H PRN Dalton Baker MD 1 mg at 06/17/23 1626 labetaloL (NORMODYNE,TRANDATE) injection 20 mg 20 mg intravenous Q2H PRN Sreekanth Armstrong NP 20 mg at 06/17/23 1016 Lactated Ringer's (LR) infusion 10 mL/hr intravenous Continuous Mateo Diaz NP Stopped at 06/13/23 2119 methocarbamoL (ROBAXIN) tablet 750 mg 750 mg oral QID Hortensia Guy MD 750 mg at 06/17/23 1626 ondansetron (ZOFRAN) injection 4 mg 4 mg intravenous Q6H PRN Mateo Diaz NP 4 mg at 06/15/23 0841 oxyCODONE (ROXICODONE) tablet 15 mg 15 mg oral Q4H PRN Mehul Brooks MD 15 mg at 06/17/23 1717 polyethylene glycol (MIRALAX) packet 17 g 17 g oral BID Sreekanth Armstrong NP 17 g at 06/17/23 0840 QUEtiapine (SEROquel) tablet 50 mg 50 mg oral Nightly Patti Sreekanth Pepe NP 50 mg at 06/16/23 2018 senna (SENOKOT) tablet 1 tablet 1 tablet oral BID Mateo Diaz NP 1 tablet at 06/17/23 0840 sodium chloride 0.9% solution 3-12 mL/hr intra-catheter Continuous Mateo Diaz NP 3 mL/hr at 06/17/23 1700 3 mL/hr at 06/17/23 1700 vancomycin 1500 mg/515 mL in sodium chloride 0.9% (premix) 1,500 mg 15 mg/kg intravenous Q8H Mateo Diaz NP 1,500 mg at 06/17/23 0956 Objective Vitals: 24hr Min/Max: Temp Min: 36.8 ??C (98.2 ??F) Max: 37.2 ??C (99 ??F) Pulse Min: 75 Max: 97 BP Min: 119/62 Max: 172/65 Resp Min: 10 Max: 19 SpO2 Min: 92 % Max: 98 % Most Recent : Vitals: 06/17/23 1700 BP: Pulse: 75 Resp: 12 Temp: SpO2: 95% I/O last 2 completed shifts: In: 3004.7 [P.O.:350; I.V.:1059.7; IV Piggyback:1595] Out: 3100 [Urine:3100] I/O this shift: In: 1553.1 [P.O.:740; I.V.:278.1; IV Piggyback:535] Out: 1775 [Urine:1775] Physical Exam: General appearance: appears stated age Constitutional: No acute distress Eyes: EOMI, anicteric Cardiovascular: Normal rate, regular rhythm Right Radial: palpable Right Femoral: palpable Right DP: palpable Left Radial: palpable Left Femoral: palpable Left DP: palpable Respiratory: non-labored breathing GI: Soft, non-tender; non-distended. No pusatile abdominal mass Muskuloskeletal: Extremities warm, sensation and motor function intact Neuro: Alert and oriented x4, non-focal Lab/Radiology/Diagnostic Review: Laboratory review: Lab results in the last 12 hours: Recent Results (from the past 12 hour(s)) Potassium, whole blood Collection Time: 06/17/23 5:51 AM Result Value Ref Range Potassium, bld 3.8 3.3 - 4.9 mmol/L POCT glucose Collection Time: 06/17/23 8:55 AM Result Value Ref Range Glucose, POC 86 70 - 199 mg/dL Assessment/Plan Eriberto Chau is a 33 y.o. male with a history of type B aortic dissection s/p TBE, complicated byuncontrolled hypertension at home, readmitted with abdominal pain and nausea over a week ago, foundto have new entry tear distal to previous TBE graft, with signs of malperfusion, s/p TEVAR and dissection stent placement 06/05. Readmitted again from home with subjective fevers and chills, cultures so far negative. - Case discussed at Aortic Conference - no further surgical intervention planned at this time. - Edit to previous note: SBP goals should be 140-160 to avoid SCI. These will be our goals at discharge as well. - Follow up Cardiology recs for PO BP regimen to maintain the above goals. - Diet as tolerated. - No activity restrictions, can be OOB to chair and ambulate with assist as tolerated. Could come to [address] if bed available. Rosey Fine MD Vascular Surgery Fellow [phone] Cosigned by Faustino Herrera MD at 06/17/2023 7:49 PM COMPANY LAUNDRY WORKER ANY LAUNDRY WORKER ANY LAUNDRY WORKER ANY LAUNDRY WORKER * Christina Landa, PT - 06/17/2023 3:27 PM CST Physical Therapy 06/17/23 8430 General PT Missed Visit Reason Other (comment) (SBP remains elevated, unable to participate in PT interventions) Recommendation/Plan PT Frequency during current admission Monitor status PT - Next Appointment 06/20/23 ANY LAUNDRY WORKER * Aman Mina MD - 06/17/2023 2:48 PM CST Cardiology Progress Note - Aorta Patient Name: Eriberto Chau : 1990 Date of Service: 06/17/23 Interval: He reports that he is doing better with continued lower back pain that is mildly improved now that he is in the hospital with multimodality pain regimen. he denies any fevers or chills. While at home he reports taking all of his blood pressure medications though endorses that he was having a high salt diet. He is known to snore loudly and has had previous desaturations in the hospital while sleeping and is pending a sleep study. The use of alcohol. He does use intermittent NSAIDs for lower back pain. No illicits He is being transitioned off of clevidipine onto oral antihypertensives. - increased to 25 mg t.i.d. of captopril today last dose 3pm - started diltiazem 30 mg q.6 at 10:30 a.m. today - Carvedilol 37.5 b.i.d. - amlodipine 10 x 3 days - hydralazine 100 mg t.i.d. Home regimen prior to discharge several days ago included: Amlodipine 5 daily Coreg 25 b.i.d. Hydralazine 25 t.i.d. Objective Vital Signs: 24hr Min/Max: Temp Min: 37.1 ??C (98.7 ??F) Max: 37.2 ??C (99 ??F) Pulse Min: 79 Max: 97 BP Min: 139/71 Max: 172/65 Resp Min: 9 Max: 19 SpO2 Min: 92 % Max: 98 % Intake/Output: Intake/Output Summary (Last 24 hours) at 06/17/2023 1448 Last data filed at 06/17/2023 1400 Gross per 24 hour Intake 3761.93 ml Output 3450 ml Net 311.93 ml Physical Exam: General appearance: no acute distress HEENT: NCAT, MMM, anicteric Lungs: CTAB, no w/r/r, non-labored Heart: RRR, S1, S2 normal, no murmur, rub or gallop. JVP not elevated, no LE edema Abdomen: soft, NT/ND; bowel sounds normal Extremities: extremities normal, warm and well-perfused, equal pulses. Pain over the right and leftparaspinal muscles as well as some midline pain on palpation Skin: warm and dry Neurologic: No abnormal movements, non-focal exam Psych: Normal mood and affect Lab/Radiology/Diagnostic Review: Labs: Recent Labs Lab Units 06/17/23 0000 06/16/23 0000 06/14/23203006/14/23 0014 06/13/23 1307 HEMOGLOBIN g/dL 9.4* 9.7* 9.9* 9.3* 10.7* HEMATOCRIT % 29.2* 29.9* 30.5* 28.7* 34.2* WBC K/cumm 11.3* 9.6 11.7* 9.9 10.5* PLATELETS K/cumm 470* 490* 513* 479* 462* Recent Labs Lab Units 06/17/23 0000 06/16/23 0000 06/14/23203006/14/23 0014 06/13/23 1307 06/11/23 0321 SODIUM mmol/L 138 138 139 138 < > 143 POTASSIUM PLASMA mmol/L 3.7 3.0* 3.9 3.9 < > 3.8 CHLORIDE mmol/L 107 105 106 107 < > 107 CO2 mmol/L 21* 23 21* 20* < > 23 ANIONGAP mmol/L 10 10 12 11 < > 13 BUN SERUM mg/dL 7 9 10 15 < > 12 CREATININE mg/dL 0.71* 0.96 0.86 0.90 < > 0.80 CREATININE POC -- -- -- -- < > -- CALCIUM mg/dL 8.3* 9.0 8.9 9.2 < > 9.1 MAGNESIUM mg/dL 1.9 2.2 1.8 2.1 -- 2.3 < > = values in this interval not displayed. Recent Labs Lab Units 06/17/23 0000 ALBUMIN g/dL 3.2* ALK PHOS Units/L 92 AST Units/L 14 ALT Units/L 14 BILIRUBIN TOTAL mg/dL 0.2 EKG with left ventricular hypertrophy Assessment/Plan Mr. Chau is a 33 y.o. male with history of type B aortic dissection in April status post TEVAR, recurrent presentation of pain and found to have extension of his dissection with compromise flowto the renal arteries w/ ANGI status post additional stent placement who presents soon after last discharge with worsening pain and hypertension. He has had longstanding untreated hypertension given his significant left ventricular hypertrophy at his young age. Agree with multimodality approach to blood pressure control including multiple blood pressure agents, pain control. We spoke to the patient about the need to decrease his salt intake as well as get screened for obstructive sleep apnea given his snoring and nighttime desaturations noted previously. - would recommend stopping diltiazem to avoid dual calcium channel louie in addition to beta-louie - would start spironolactone 25mg daily for resistant hypertension. - we will see what the effect of spironolactone plus the higher dose of captopril is. Captopril will likely be consolidated to daily lisinopril on discharge. - If additional medications are needed after this, we may need to resort to clonidine as an additional agent. Aman Mina MD Explosives Worker 2:48 PM 06/17/23 Cosigned by Joaquín Abarca MD at 06/18/2023 7:56 AM COMPANY LAUNDRY WORKER ANY LAUNDRY WORKER ANY LAUNDRY WORKER Associated attestation - Joaquín Abarca MD - 06/18/2023 7:56 AM COMPANY LAUNDRY WORKER I have seen and examined the patient on 06/17/23. I agree with the findings and plan of care as documented in the resident's/fellow's note.. Cardiology attending attestation note: Joaquín Abarca MD. I have seen examined the patient with the pathology manager on June 17, 2023. I saw him at the request of Dr. Arvin Herrera for consultation regarding hypertension and recurrent aortic dissections. The patient has been seen on 2 prior occasions for us for consultation regarding the aortic dissection. He has a history of hypertension with difficult to manage hypertension, resistant hypertension. He has chronic low back pain as well. He is on multiple agents for blood pressure control. He denies any acute anterior chest or upper back pain. He reports compliance with his medications. On exam no acute distress JVP not visible chest clear S1-S2 no S3 abdomen is soft nontender no guarding rebound or rigidity and no edema present. Laboratories reviewed : Potassium 3.7 CO2 21 chloride 107, creatinine 0.71. I personally reviewed the CT scan from this admission which showed prompt renal uptake of the contrast and renal arteries looked patent. Assessment and plan the patient has hypertension and resistant hypertension. He is on multiple agents for blood pressure control. He most likely has primary hypertension. Chronic back pain can exacerbate hypertension. With a history of aortic dissection, blood pressure control goal should be blood pressure 120/80 ifpossible. This may be difficult given his resistant hypertension. At present he has been given to calcium channel blockers. Recommend that a dihydropyridine calcium channel louie like amlodipine at10 mg a day be continued and that diltiazem be discontinued. Instead of diltiazem the addition of spironolactone and/or clonidine if required for further blood pressure control is recommended given the importance of blood pressure control. Joaquín Abarca MD. orange picker * Kristine Underwood, PROFESSOR OF NURSING - 06/17/2023 6:58 AM CSTAssociated Order(s): Critical Care Post-Procedure Diagnose(s): Infrarenal abdominal aortic aneurysm, without rupture (HCC) ICU Daily Progress Shifts: NPP Shift Options: 82 AM 2 Subjective Patient is a 33 y.o. male admitted to the hospital on 06/13/2023 12:39 PM with/following: type B aortic dissection Interval History: -increase captopril -20meq KCL -2g mag ICU course: 06/04: Admit for hypertensive urgency and flank pain. Impulse control. 06/05: TEVAR: L groin access, placed new graft within old graft that extends over distal portion of previous TEVAR graft that covers the new entry tear and stops above celiac artery. Placement of new uncovered stent graft to visceral aorta as the false lumen was compressing the true lumen. He is still filling false lumen. Lumbar drain in place. 06/07: Lumbar drain removed. 06/11: D/C home. 06/13: Re admitted for worsening back pain, HTN, and subjective fever/chills. Objective Medications: Scheduled Meds:amLODIPine, 10 mg, oral, Daily bisacodyL, 10 mg, rectal, Once captopriL, 25 mg, oral, TID carvediloL, 37.5 mg, oral, BID with meals (bkfst, dinner) cefepime, 2,000 mg, intravenous, Q8H SUSAN docusate sodium, 100 mg, oral, BID enoxaparin, 40 mg, subcutaneous, Daily-2100 gabapentin, 300 mg, oral, TID hydrALAZINE, 100 mg, oral, TID methocarbamoL, 750 mg, oral, QID polyethylene glycol, 17 g, oral, BID QUEtiapine, 50 mg, oral, Nightly senna, 1 tablet, oral, BID vancomycin, 15 mg/kg, intravenous, Q8H Continuous Infusions:clevidipine, 0-32 mg/hr, Last Rate: 10 mg/hr (06/17/23 06) Lactated Ringer's, 10 mL/hr, Last Rate: Stopped (06/13/232118) sodium chloride 0.9%, 3-12 mL/hr, Last Rate: 3 mL/hr (06/17/23 06) Vitals: Temp: [37.1 ??C (98.7 ??F)-37.3 ??C (99.2 ??F)] 37.1 ??C (98.7 ??F) Pulse: [78-97] 85 BP: (172)/(65) 172/65 Resp: [9-19] 13 SpO2: [93 %-98 %] 98 % Arterial Line BP: (115-171)/(49-68) 146/55 Fluid balance: I/O this shift: In: 1527.1 [P.O.:350; I.V.:612.1; IV Piggyback:565] Out: 1025 [Urine:1025] Intake/Output Summary (Last 24 hours) at 06/17/2023 0658 Last data filed at 06/17/2023 0600 Gross per 24 hour Intake 3004.73 ml Output 3100 ml Net -95.27 ml Ventilator settings: Hemodynamic parameters: PAP: -- CVP: -- PCWP: -- CO: -- CI: -- SVO2: -- Pacemaker Overdrive Pacing: -- Cardiac Rhythm: Normal sinus rhythm (06/17 599) Pacer Mode: -- Physical exam: Neuro: awake, alert, oriented x4, CAM (-), moves all extremities and follows commands. Strength 5/5to all extremities. Cardiac: NSR 70s, RRR, S1 S2, periphery warm, pulses palpable distally Pulm: on NC, lungs clear bilaterally, respirations even and unlabored GI: abdomen round, soft, nontender, active bowel sounds : voids Skin: [place], warm, dry Laboratory data: Recent Labs Lab Units 06/17/23 0000 06/16/23 0000 06/14/232030 WBC K/cumm 11.3* 9.6 11.7* HEMOGLOBIN g/dL 9.4* 9.7* 9.9* HEMATOCRIT % 29.2* 29.9* 30.5* PLATELETS K/cumm 470* 490* 513* Recent Labs Lab Units 06/17/23 0000 06/16/23 0000 06/14/232030 SODIUM mmol/L 138 138 139 POTASSIUM PLASMA mmol/L 3.7 3.0* 3.9 CHLORIDE mmol/L 107 105 106 CO2 mmol/L 21* 23 21* BUN SERUM mg/dL 7 9 10 CREATININE mg/dL 0.71* 0.96 0.86 CALCIUM mg/dL 8.3* 9.0 8.9 Recent Labs Lab Units 06/13/23 1307 PROTIME (PT) sec 14.9* INR 1.31* APTT sec 40* Diagnostic review (radiology / micro / other): CXR personally reviewed-> clear lung almazan bilaterally Impression and Plan: Active problems/Plans: Acute pain C/O lower back pain since prior admission this month. Rates aching pain at 12/06. 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 Now s/p TEVAR on 06/05/2023 w/ placement of new graft within old graft that ends above celiac artery. Pt was d/c'd home on 06/11 and was readmitted on 06/13 w/ worsening back pain, hypertensive emergency, and subjective fever/chills. Pt reported taking medication as directed but SBP was 180 at home, but in 200s in ED. 06/13 CT : No change in aneurysm. No stent migration. No increase in the false lumen perfusion. A new pseudoaneurysm at left fem artery access site. No discitis-osteomyelitis or well-defined paravertebral abscess of spine 06/13 MRI: No acute abnormality of the thoracic spine with normal appearance of intervertebral disksand endplates without evidence of discitis/osteomyelitis. Remains supported w/ Clevidipine. WBC 11.3, afebrile. - wean Clevidipine 2/2 elevated triglycerides - SBP goal 120-140, HR goal <70 - Q2H NV checks - increase captopril to 25 mg TID - start diltiazem 30 mg Q6H - cont Norvasc 10 mg daily - cont Labetalol 20 mg PRN for HR > 80 or SBP > 120 - cont Coreg 37.5 BID - cont hydral 100 TID - no activity restriction per vascular team (ok to get to chair and ambulate) - no current indication for pseudoaneurysm injection at this time - surgical planning ongoing - continue vancomycin and cefepime until blood cultures finalized w/ no growth - ID following - trend WBC and fever curve Anemia Likely in setting of recent surgical procedure. Hgb 9.4. No s/s active bleeding. - consider transfusion for Hgb < 7 or for s/s active bleeding w/ hemodynamic instability - CBC daily ICU care to include: SCD's and Lovenox for DVT ppx Bowel regimen GI prophylaxis: NA Glycemic control: Euglycemic PT/OT Updates: Dr. Abarca consulted per Vascular surgery. Clevidipine weaned off and restarted at low dose. OOBTC today. BM following Mag citrate. Kristine Underwood NP Critical Care Performed by: Kristine Underwood NP Authorized by: Kristine Underwood NP CRITICAL CARE: Team: 83 CTICU Shift: AM Level of Billing: Critical Care My time spent with this patient was 80 minutes: Critical Provider Statement: I have seen and examined the patient on this day of service. I have reviewed and confirmed the history, physical exam, laboratory and radiologic data as documented in thesigned ICU note. I have reviewed and discussed my treatment plan with the ICU team and other medical/service consultant staff, making frequent assessments and decisions [...] or life-threatening deterioration of the following conditions: I spent time reviewing and interpreting data from bedside monitors, laboratory results, and imaging, I spent time discussing the management of this critically ill patient with consultants and the medical staff and I spent time documenting in the medical record Cosigned by Mehul Brooks MD at 06/25/2023 7:31 AM COMPANY LAUNDRY WORKER ANY LAUNDRY WORKER ANY LAUNDRY WORKER * Deniz Ireland PA - 06/16/2023 6:40 PM CSTAssociated Order(s): Critical Care Post-Procedure Diagnose(s): Epistaxis CT ICU Daily Progress Shifts: NPP Shift Options: 8300 PM 1 Subjective Patient is a 33 y.o. male admitted to the hospital on 06/13/2023 12:39 PM with/following: Type B Aortic Dissection Overnight events: - ICU course: 06/04: Admit for hypertensive urgency and bilat flank 4-5 days; renal doppler NL, esmolol & cardene infusions, bryant placement 06/05: TEVAR: L groin access, placed new graft within old graft that extends over distal portion of previous TEVAR graft that covers the new entry tear and stops above celiac artery. Placement of new uncovered stent graft to visceral aorta as the false lumen was compressing the true lumen. He is still filling false lumen. Lumbar drain in place 06/07: Lumbar Drain Removal 06/11: Discharged Home 06/13: Re admitted for ongoing hypertension and worsening ongoing back pain Objective Medications: Scheduled Meds:amLODIPine, 10 mg, oral, Daily bisacodyL, 10 mg, rectal, Once captopriL, 25 mg, oral, TID carvediloL, 37.5 mg, oral, BID with meals (bkfst, dinner) cefepime, 2,000 mg, intravenous, Q8H SUSAN docusate sodium, 100 mg, oral, BID enoxaparin, 40 mg, subcutaneous, Daily-2100 gabapentin, 300 mg, oral, TID hydrALAZINE, 100 mg, oral, TID methocarbamoL, 750 mg, oral, QID polyethylene glycol, 17 g, oral, BID QUEtiapine, 50 mg, oral, Nightly senna, 1 tablet, oral, BID vancomycin, 15 mg/kg, intravenous, Q8H Continuous Infusions:clevidipine, 0-32 mg/hr, Last Rate: 5 mg/hr (06/17/23 05) Lactated Ringer's, 10 mL/hr, Last Rate: Stopped (06/13/232118) sodium chloride 0.9%, 3-12 mL/hr, Last Rate: 3 mL/hr (06/17/23 0500) Vitals: Temp: [37.1 ??C (98.7 ??F)-37.3 ??C (99.2 ??F)] 37.1 ??C (98.7 ??F) Pulse: [78-97] 83 BP: (172)/(65) 172/65 Resp: [9-19] 17 SpO2: [93 %-98 %] 98 % Arterial Line BP: (115-171)/(49-68) 136/53 Fluid balance: I/O this shift: In: 1163.9 [I.V.:598.9; IV Piggyback:565] Out: 1025 [Urine:1025] Intake/Output Summary (Last 24 hours) at 06/17/2023 0526 Last data filed at 06/17/2023 0500 Gross per 24 hour Intake 2732.14 ml Output 3200 ml Net -467.86 ml Hemodynamic parameters: PAP: -- CVP: -- PCWP: -- CO: -- CI: -- SVO2: -- Pacemaker Overdrive Pacing: -- Cardiac Rhythm: Normal sinus rhythm (06/17 399) Pacer Mode: -- Physical exam: Neuro: AOx 3-4, able to follow simple commands, PERRL 3mm, CAM (-), BLE 5/5 strength and intact neurosensory bilat all dermatomes Cardiovascular: RRR, periphery warm with palpable pulses, no significant edema Pulmonary: Breath sounds clear to auscultation bilaterally, diminished bases, normal respiratory rate and effort GI: Abdomen obese, soft, non-distended, bowel sounds active : Voids Skin: Warm, dry Laboratory data: Recent Labs Lab Units 06/17/23 0000 06/16/23 0000 06/14/23 2031 WBC K/cumm 11.3* 9.6 11.7* HEMOGLOBIN g/dL 9.4* 9.7* 9.9* HEMATOCRIT % 29.2* 29.9* 30.5* PLATELETS K/cumm 470* 490* 513* Recent Labs Lab Units 06/17/23 0000 06/16/23 0000 06/14/23 203 SODIUM mmol/L 138 138 139 POTASSIUM PLASMA mmol/L 3.7 3.0* 3.9 CHLORIDE mmol/L 107 105 106 CO2 mmol/L 21* 23 21* BUN SERUM mg/dL 7 9 10 CREATININE mg/dL 0.71* 0.96 0.86 CALCIUM mg/dL 8.3* 9.0 8.9 Recent Labs Lab Units 06/13/23 1307 PROTIME (PT) sec 14.9* INR 1.31* APTT sec 40* Review of the laboratory data shows: Plan: Unless specified below, will continue to monitor/trend. Diagnostic review (radiology / micro / other): CXR (06/16/2023) Mild bilat atelectasis otherwise, no focal consolidation, effusion or mass. No obvious pneumothoraxor pneumomediastinum. Aorta graft unchanged. Compared to prior CXR and no significant interval change. Impression and Plan: Active problems/Diagnoses: Plans: Neuro/Pain: #Acute on chronic pain #Back Pain-chronic Chronic back pain that has worsened over last few days - cont schedule tylenol, Robaxin, gabapentin - PRN Oxycodone, dilaudid #Nightmares Patient w/ hx of extreme nightmares - cont home Seroquel Cardiovascular: #Hypertension #Type B Dissection s/p TEVAR Discharged 06/09 with blood pressure regimen controlled with permissive hypertension SBP ~140. Patient reports taking medication as directed but SBP was 180 at home. Presents to ED with SBP 200 and increased groin and back pain. 06/13 CT : No change in aneurysmal. No stent migration. No increased in the false lumen perfusion. Anew pseudoaneurysm at left fem artery access site. No discitis-osteomyelitis or well-defined paravertebral abscess of spine 06/13 MRI: No acute abnormality of the thoracic spine with normal appearance of intervertebral disksand endplates without evidence of discitis/osteomyelitis. - wean Clevidipine down 2/2 elevated triglycerides -cont captopril started on 06/16. - cont Norvasc 10 mg every day - cont Labetalol 20 mg PRN for HR > 80 or SBP > 120 - cont Coreg 37.5 BID - cont hydral 100 TID - cont impulse control in ICU per vascular recs -SBP goal 120-140 - NV checks now Q2 hrs -no activity restriction per vascular team (ok to get to chair and ambulate) - Pseudoaneurysm w/o injection at this time. US will not intervene at this item, Trend exam - vascular primary: CTS consulted for possible open repair (presented to aortic conference) Gastrointestinal: Diet: regular diet Renal/Lytes: #Hypokalemia Received potassium extended release throughout day -monitor WBK and replete as indicated. Heme/ID: #Acute Blood Loss Anemia -stable Expected following cardiac surgery. Hgb 9.7. No signs of active bleeding. - No current indication for transfusion, consider if patient becomes hemodynamically unstable with increased pressor requirements or Hgb < 8 and symptomatic - CBC daily #Leukocytosis-mild elevation #C/f Endovascular Graft Infection #C/f spinal infection Afebrile. Reports chills, fever and night sweats. 06/13 blood culture pending, MRI w/o signs of osteomyelitis/discitis 06/16; repeat MRI spine - Continue Cefe/Vanc (06/13-), trend vanc trough; has NURSERY HELPER penetration - f/u MRI completed; no acute findings of infectious disease process noted -per ID- low suspicion for infectious process. Continue to follow BCX. Ok to stop ABX once culturesare negative. -ID following ICU Care to Include: Restraints: n/a DVT prophylaxis: SCDs, lovenox QD PUD prophylaxis: n/a. Nutrition: see above Bowel regimen: Docusate, Miralax, &Senna Physical therapy/Activity: OOB/PT when able to participate Drains: n/a Goals of care: Full code Resolved: Deniz M. Ireland, PA-C Updates: 0100hr: still on clevidipine without ability to wean. Give additional dose 12.5mg captopril now andincrease scheduled dose to 25mg TID. Critical Care Performed by: Deniz Ireland PA Authorized by: Deniz Ireland PA CRITICAL CARE: Team: 83 CTICU Shift: PM Level of Billing: Subsequent Hospital Visit Level 3 My time spent with this patient was 75 minutes: Critical Provider Statement: I have seen and examined the patient on this day of service. I have reviewed and confirmed the history, physical exam, laboratory, and radiographic data as documented in the ICU note. I have reviewed and discussed my treatment plan with the patient's team and other medical/service consultant staff. This time was in addition to and separate from care provided by other practitioners on this day of service. I spent time reviewing and interpreting data from bedside monitors, laboratory results, and imaging, I spent time discussing the management of this critically ill patient with consultants and the medical staff and I spent time documenting in the medical record Cosigned by Mehul Brooks MD at 06/17/2023 1:46 PM COMPANY LAUNDRY WORKER ANY LAUNDRY WORKER ANY LAUNDRY WORKER * Rosey Fine MD - 06/16/2023 7:57 AM CST Vascular Surgery Daily Progress Patient Name/MRN: Eriberto Chau [id number] Treatment Team: Vascular Surgery- Attending: Faustino Herrera MD Today's Date: 06/16/2023 Room/Bed: [id number] Admit Date: 06/13/2023 Code Status: Full Code Events Over Last 24 Hours: No acute events overnight. SBP controlled this morning. Allergies Allergen Reactions Amoxicillin Hives Current Facility-Administered Medications Medication Dose Route Frequency Provider Last Rate Last Admin acetaminophen (TYLENOL) tablet 1,000 mg 1,000 mg oral Q6H Mateo Campo PROFESSOR OF NURSING 1,000 mg at 06/16/23 0552 amLODIPine (NORVASC) tablet 10 mg 10 mg oral Daily Sreekanth Armstrong NP 10 mg at 06/15/23 0840 bisacodyL (DULCOLAX) suppository 10 mg 10 mg rectal Once Sreekanth Armstrong NP Carrier Fluids for Secondary Infusion - 0.9% Sodium Chloride 30 mL intravenous PRN Mateo Diaz PROFESSOR OF NURSING 30 mL at 06/14/23 2153 carvediloL (COREG) tablet 37.5 mg 37.5 mg oral BID with meals (bkfst, dinner) Cristobal Cote MD 37.5 mg at 06/16/23 0726 cefepime (MAXIPIME) 2,000 mg/20 mL in sterile water (premix) 2,000 mg 2,000 mg intravenous Q8H SUSAN Mateo Diaz NP 240 mL/hr at 06/16/23 0552 2,000 mg at 06/16/23 0552 clevidipine (CLEVIPREX) 50 mg/100 mL (0.5 mg/mL) (premix) 0-32 mg/hr intravenous Titrated Mateo Diaz NP 60 mL/hr at 06/16/23 0752 30 mg/hr at 06/16/23 0752 docusate sodium (COLACE) capsule 100 mg 100 mg oral BID Mateo Diaz PROFESSOR OF NURSING 100 mg at 06/15/232029 enoxaparin (LOVENOX) syringe 40 mg 40 mg subcutaneous Daily-2100 Mateo Diaz NP 40 mg at 06/15/232102 [Held by Provider] esmolol in 0.9% sodium chloride (BREVIBLOC) 2,500 mg/250 mL (10 mg/mL) infusion (premix) 0-300 mcg/kg/min intravenous Titrated Sreekanth Armstrong NP Stopped at 06/15/23 0952 gabapentin (NEURONTIN) capsule 300 mg 300 mg oral TID Sreekanth Armstrong NP 300 mg at 06/15/232029 hydrALAZINE (APRESOLINE) tablet 100 mg 100 mg oral TID Mateo Diaz PROFESSOR OF NURSING 100 mg at 06/15/232029 HYDROmorphone (DILAUDID) injection 1 mg 1 mg intravenous Q2H PRN Dalton Baker MD 1 mg at 06/16/23 0726 labetaloL (NORMODYNE,TRANDATE) injection 20 mg 20 mg intravenous Q2H PRN Sreekanth Armstrong NP 20 mg at 06/16/23 0128 Lactated Ringer's (LR) infusion 10 mL/hr intravenous Continuous Mateo Diaz NP Stopped at 06/13/232118 methocarbamoL (ROBAXIN) tablet 750 mg 750 mg oral QID Hortensia Guy MD 750 mg at 06/16/23 0726 ondansetron (ZOFRAN) injection 4 mg 4 mg intravenous Q6H PRN Mateo Diaz NP 4 mg at 06/15/23 0841 oxyCODONE (ROXICODONE) tablet 10 mg 10 mg oral Q4H PRN Cristobal Cote MD 10 mg at 06/16/23 0553 polyethylene glycol (MIRALAX) packet 17 g 17 g oral BID Sreekanth Armstrong NP QUEtiapine (SEROquel) tablet 50 mg 50 mg oral Nightly Sreekanth Armstrong NP 50 mg at 06/15/23 2030 senna (SENOKOT) tablet 1 tablet 1 tablet oral BID Mateo Diaz NP 1 tablet at 06/15/23 2030 sodium chloride 0.9% solution 3-12 mL/hr intra-catheter Continuous Mateo Diaz NP 3 mL/hr at 06/16/23 0700 3 mL/hr at 06/16/23 0700 vancomycin 1500 mg/515 mL in sodium chloride 0.9% (premix) 1,500 mg 15 mg/kg intravenous Q8H Mateo Diaz NP 1,500 mg at 06/16/23 0144 Objective Vitals: 24hr Min/Max: Temp Min: 37.1 ??C (98.8 ??F) Max: 37.3 ??C (99.2 ??F) Pulse Min: 73 Max: 95 Resp Min: 7 Max: 21 SpO2 Min: 94 % Max: 98 % Most Recent : Vitals: 06/16/23 0700 BP: Pulse: 86 Resp: 14 Temp: 37.3 ??C (99.2 ??F) SpO2: 97% I/O last 2 completed shifts: In: 3923.9 [I.V.:1768.9; IV Piggyback:2154] Out: 3210 [Urine:3210] I/O this shift: In: 63 [I.V.:63] Out: 500 [Urine:500] Physical Exam: General appearance: appears stated age Constitutional: No acute distress Eyes: EOMI, anicteric Cardiovascular: Normal rate, regular rhythm Right Radial: palpable Right Femoral: palpable Right DP: palpable Left Radial: palpable Left Femoral: palpable Left DP: palpable Respiratory: non-labored breathing GI: Soft, non-tender; non-distended. No pusatile abdominal mass Muskuloskeletal: Extremities warm, sensation and motor function intact Neuro: Alert and oriented x4, non-focal Lab/Radiology/Diagnostic Review: Laboratory review: Lab results in the last 12 hours: Recent Results (from the past 12 hour(s)) CBC without differential Collection Time: 06/16/23 12:00 AM Result Value Ref Range WBC 9.6 3.8 - 9.9 K/cumm Hgb 9.7 (L) 13.0 - 17.5 g/dL Hct 29.9 (L) 38.9 - 50.3 % Plt 490 (H) 150 - 400 K/cumm MPV 9.3 9.1 - 12.3 fL RBC 3.37 (L) 4.30 - 5.80 M/cumm MCV 88.7 81.3 - 96.4 fL MCH 28.8 27.1 - 33.3 pg MCHC 32.4 32.3 - 35.7 g/dL RDW CV 13.4 11.1 - 14.9 % RDW SD 43.8 35.7 - 48.1 fL NRBC abs 0.00 0.00 - 0.01 K/cumm Magnesium Collection Time: 06/16/23 12:00 AM Result Value Ref Range Magnesium 2.2 1.4 - 2.5 mg/dL Phosphorus Collection Time: 06/16/23 12:00 AM Result Value Ref Range Phosphorus, pl 3.3 2.3 - 4.5 mg/dL Comprehensive metabolic panel Collection Time: 06/16/23 12:00 AM Result Value Ref Range Sodium 138 135 - 145 mmol/L Potassium, pl 3.0 (L) 3.3 - 4.9 mmol/L Chloride 105 97 - 110 mmol/L CO2 23 22 - 32 mmol/L Anion gap 10 2 - 15 mmol/L BUN 9 6 - 25 mg/dL Creatinine 0.96 0.80 - 1.30 mg/dL Glucose 127 70 - 199 mg/dL Calcium 9.0 8.5 - 10.3 mg/dL Bilirubin, total 0.2 0.1 - 1.2 mg/dL Protein, pl 7.9 6.5 - 8.5 g/dL Albumin 3.4 (L) 3.5 - 5.0 g/dL Alk phos 92 40 - 130 Units/L ALT 11 7 - 55 Units/L AST 10 10 - 50 Units/L Triglycerides Collection Time: 06/16/23 12:00 AM Result Value Ref Range Triglycerides 222 (H) <=149 mg/dL eGFR Collection Time: 06/16/23 12:00 AM Result Value Ref Range eGFR >90 >=60 mL/min/1.73 m2 Potassium, whole blood Collection Time: 06/16/23 1:13 AM Result Value Ref Range Potassium, bld 3.1 (L) 3.3 - 4.9 mmol/L Potassium, whole blood Collection Time: 06/16/23 6:00 AM Result Value Ref Range Potassium, bld 3.4 3.3 - 4.9 mmol/L Assessment/Plan Eriberto Chau is a 33 y.o. male with a history of type B aortic dissection s/p TBE, complicated byuncontrolled hypertension at home, readmitted with abdominal pain and nausea over a week ago, foundto have new entry tear distal to previous TBE graft, with signs of malperfusion, s/p TEVAR and dissection stent placement 06/05. Readmitted again from home with subjective fevers and chills, cultures so far negative. - To be presented at aortic conference today for further discussion between CTS and Vascular Surgery teams - Abx with NURSERY HELPER penetration - Continue impulse control in ICU for now - Diet as tolerated - No activity restrictions, can be OOB to chair and ambulate with assist as tolerated Could come to 7500 OU if bed available. Rosey Fine MD Vascular Surgery Fellow [phone] Cosigned by Faustino Herrera MD at 06/17/2023 1:01 PM COMPANY LAUNDRY WORKER ANY LAUNDRY WORKER ANY LAUNDRY WORKER Associated attestation - Faustino Herrera MD - 06/17/2023 1:01 PM COMPANY LAUNDRY WORKER I have seen and examined the patient on 06/16/2023. I agree with the findings and plan of care as documented in the resident's/fellow's note.. * Sreekanth Armstrong, TREE - 06/16/2023 6:40 AM CSTAssociated Order(s): Critical Care Post-Procedure Diagnose(s): Infrarenal abdominal aortic aneurysm, without rupture (HCC) CT ICU Daily Progress Shifts: NPP Shift Options: 8300 AM 2 Subjective Patient is a 33 y.o. male admitted to the hospital on 06/13/2023 12:39 PM with/following: Type B Aortic Dissection Overnight events: - MRI completed -40meq KCL for WBK 3.1 -precedex + ativan IV for MR ICU course: 06/04: Admit for hypertensive urgency and bilat flank 4-5 days; renal doppler NL, esmolol & cardene infusions, bryant placement 06/05: TEVAR: L groin access, placed new graft within old graft that extends over distal portion of previous TEVAR graft that covers the new entry tear and stops above celiac artery. Placement of new uncovered stent graft to visceral aorta as the false lumen was compressing the true lumen. He is still filling false lumen. Lumbar drain in place 06/07: Lumbar Drain Removal 06/11: Discharged Home 06/13: Re admitted for ongoing hypertension and worsening ongoing back pain Objective Medications: Scheduled Meds:acetaminophen, 1,000 mg, oral, Q6H SUSAN amLODIPine, 10 mg, oral, Daily carvediloL, 37.5 mg, oral, BID with meals (bkfst, dinner) cefepime, 2,000 mg, intravenous, Q8H SUSAN docusate sodium, 100 mg, oral, BID enoxaparin, 40 mg, subcutaneous, Daily-2100 gabapentin, 300 mg, oral, TID hydrALAZINE, 100 mg, oral, TID methocarbamoL, 750 mg, oral, QID polyethylene glycol, 17 g, oral, Daily QUEtiapine, 50 mg, oral, Nightly senna, 1 tablet, oral, BID vancomycin, 15 mg/kg, intravenous, Q8H Continuous Infusions:clevidipine, 0-32 mg/hr, Last Rate: 30 mg/hr (06/16/23 06) [Held by Provider] esmolol, 0-300 mcg/kg/min, Last Rate: Stopped (06/15/23951) Lactated Ringer's, 10 mL/hr, Last Rate: Stopped (06/13/232118) sodium chloride 0.9%, 3-12 mL/hr, Last Rate: 3 mL/hr (06/16/23599) Vitals: Temp: [37.1 ??C (98.8 ??F)-37.3 ??C (99.1 ??F)] 37.3 ??C (99.1 ??F) Pulse: [73-95] 81 Resp: [7-21] 17 SpO2: [94 %-98 %] 96 % Fluid balance: I/O this shift: In: 1814.2 [I.V.:739.2; IV Piggyback:1075] Out: 1250 [Urine:1250] Intake/Output Summary (Last 24 hours) at 06/16/2023 0641 Last data filed at 06/16/2023 0600 Gross per 24 hour Intake 3923.85 ml Output 3510 ml Net 413.85 ml Ventilator settings: Hemodynamic parameters: PAP: -- CVP: -- PCWP: -- CO: -- CI: -- SVO2: -- Pacemaker Overdrive Pacing: -- Cardiac Rhythm: Normal sinus rhythm (06/16 599) Pacer Mode: -- Physical exam: Neuro: Alert, oriented, able to follow simple commands, PERRL 3mm, CAM (-), BLE 5/5 strength Cardiovascular: RRR, periphery warm with palpable pulses, no significant edema Pulmonary: Breath sounds clear to auscultation bilaterally, diminished bases, normal respiratory rate and effort GI: Abdomen obese, soft, non-distended, bowel sounds active : Voids Skin: Warm, dry Laboratory data: Recent Labs Lab Units 06/16/23 0000 06/14/23203006/14/23 0014 WBC K/cumm 9.6 11.7* 9.9 HEMOGLOBIN g/dL 9.7* 9.9* 9.3* HEMATOCRIT % 29.9* 30.5* 28.7* PLATELETS K/cumm 490* 513* 479* Recent Labs Lab Units 06/16/23 0000 06/14/23203006/14/23 0014 SODIUM mmol/L 138 139 138 POTASSIUM PLASMA mmol/L 3.0* 3.9 3.9 CHLORIDE mmol/L 105 106 107 CO2 mmol/L 23 21* 20* BUN SERUM mg/dL 9 10 15 CREATININE mg/dL 0.96 0.86 0.90 CALCIUM mg/dL 9.0 8.9 9.2 Recent Labs Lab Units 06/13/23 1307 PROTIME (PT) sec 14.9* INR 1.31* APTT sec 40* Review of the laboratory data shows: Plan: Unless specified below, will continue to monitor/trend. Diagnostic review (radiology / micro / other): Review of CXR shows: Atelectasis Impression and Plan: Active problems/Diagnoses: Plans: Acute on chronic pain Chronic back pain post lumbar drain placement from previous surgery - schedule tylenol & Start Robaxin - PRN Oxycodone, dilaudid - Start home Lopez Nightmares Patient w/ hx of extreme nightmares - Restart home Seroquel Hypertension Type B Dissection s/p TEVAR Pseudoaneurysm Left groin Discharged 06/09 with blood pressure regimen controlled with permissive hypertension SBP ~140. Patient reports taking medication as directed but SBP was 180 at home. Presents to ED with SBP 200 and increased groin and back pain. 06/13 CT : No change in aneurysmal. No stent migration. No increased in the false lumen perfusion. Anew pseudoaneurysm at left fem artery access site. No discitis-osteomyelitis or well-defined paravertebral abscess of spine 06/13 MRI: No acute abnormality of the thoracic spine with normal appearance of intervertebral disksand endplates without evidence of discitis/osteomyelitis. - Titrate Clevidipine for SBP goal 120-140 - Labetalol 20 mg for HR > 80 or Sbp > 120 - Coreg 37.5 BID - hydral 100 TID - Norvasc 10 mg - Start Captopril TID - vascular primary - Consult CTS for possible open repair, Case will be discussed today 06/16 - q2h NV/NM checks - Pseudoaneurysm w/o injection at this time. US will not intervene at this item, Trend exam - 06/15 MRI results pending Hypokalemia Likely 2/2 auto diuresisi - Replete K to maintain goal > 4 Anemia Following vascular surgery from previous admission. No signs of active bleeding. Hgb stable 9-10, Plt > 150 - No current indication for transfusion, consider if patient becomes hemodynamically unstable with increased pressor requirements or Hgb < 8 and symptomatic - CBC daily Leukocytosis C/f Endovascular Graft Infection Afebrile. Reports chills, fever and night sweats, WBC decreasing 06/13 blood culture pending, MRI w/o signs of osteomyelitis/discitis - Continue Cefe/Vanc (06/13-), trend vanc trough - Consult ID for fevers and chills after original surgery, Vascular surgery wants CSF penetration ICU Standards of Care Restraints: NA Diet: regular DVT ppx: SCD's, lovenox PUD ppx: NA Activity: as tolerated Bowel reg: Increase Colace, Senna, and Miralax GOC: full code Resolved problems: Updates: - Patient remains on clevidipine--> increase Captopril Sreekanth Armstrong NP Critical Care Performed by: Sreekanth Armstrong NP Authorized by: Sreekanth Armstrong NP CRITICAL CARE: Team: 83 CTICU Shift: AM Level of Billing: Critical Care My time spent with this patient was 90 minutes: Critical Provider Statement: I have seen and examined the patient on this day of service. I have reviewed and confirmed the history, physical exam, laboratory and radiologic data as documented in thesigned ICU note. I have reviewed and discussed my treatment plan with the ICU team and other medical/service consultant staff, making frequent assessments and decisions [...] or life-threatening deterioration of the following conditions: I spent time reviewing and interpreting data from bedside monitors, laboratory results, and imaging, I spent time discussing the management of this critically ill patient with consultants and the medical staff and I spent time documenting in the medical record Cosigned by Mehul Brooks MD at 06/17/2023 1:45 PM COMPANY LAUNDRY WORKER ANY LAUNDRY WORKER ANY LAUNDRY WORKER * Deniz Ireland PA - 06/15/2023 9:04 PM CSTAssociated Order(s): Critical Care Post-Procedure Diagnose(s): Dissection of aorta, unspecified portion of aorta (HCC) CT ICU Daily Progress Shifts: NPP Shift Options: 8300 PM 1 Subjective Patient is a 33 y.o. male admitted to the hospital on 06/13/2023 12:39 PM with/following: Type B Aortic Dissection Overnight events: ICU course: 06/04: Admit for hypertensive urgency and bilat flank 4-5 days; renal doppler NL, esmolol & cardene infusions, bryant placement 06/05: TEVAR: L groin access, placed new graft within old graft that extends over distal portion of previous TEVAR graft that covers the new entry tear and stops above celiac artery. Placement of new uncovered stent graft to visceral aorta as the false lumen was compressing the true lumen. He is still filling false lumen. Lumbar drain in place 06/07: Lumbar Drain Removal 06/11: Discharged Home 06/13: Re admitted for ongoing hypertension and worsening ongoing back pain Objective Medications: Scheduled Meds:acetaminophen, 1,000 mg, oral, Q6H SUSAN amLODIPine, 10 mg, oral, Daily carvediloL, 37.5 mg, oral, BID with meals (bkfst, dinner) cefepime, 2,000 mg, intravenous, Q8H SUSAN docusate sodium, 100 mg, oral, BID enoxaparin, 40 mg, subcutaneous, Daily-2100 gabapentin, 300 mg, oral, TID hydrALAZINE, 100 mg, oral, TID methocarbamoL, 750 mg, oral, QID polyethylene glycol, 17 g, oral, Daily potassium chloride, 40 mEq, intravenous, Once QUEtiapine, 50 mg, oral, Nightly senna, 1 tablet, oral, BID vancomycin, 15 mg/kg, intravenous, Q8H Continuous Infusions:clevidipine, 0-32 mg/hr, Last Rate: 30 mg/hr (06/16/23399) dexmedeTOMIDine, 0-0.7 mcg/kg/hr, Last Rate: 0.4 mcg/kg/hr (06/16/23402) [Held by Provider] esmolol, 0-300 mcg/kg/min, Last Rate: Stopped (06/15/23951) Lactated Ringer's, 10 mL/hr, Last Rate: Stopped (06/13/232118) sodium chloride 0.9%, 3-12 mL/hr, Last Rate: 3 mL/hr (06/16/23399) Vitals: Temp: [37.1 ??C (98.8 ??F)-37.3 ??C (99.1 ??F)] 37.3 ??C (99.1 ??F) Pulse: [73-95] 87 Resp: [7-21] 16 SpO2: [90 %-98 %] 95 % Fluid balance: I/O this shift: In: 1650.8 [I.V.:595.8; IV Piggyback:1055] Out: 1150 [Urine:1150] Intake/Output Summary (Last 24 hours) at 06/16/2023 0520 Last data filed at 06/16/2023 0440 Gross per 24 hour Intake 3966.92 ml Output 3535 ml Net 431.92 ml Ventilator settings: Hemodynamic parameters: PAP: -- CVP: -- PCWP: -- CO: -- CI: -- SVO2: -- Pacemaker Overdrive Pacing: -- Cardiac Rhythm: Normal sinus rhythm (06/16 399) Pacer Mode: -- Physical exam: Neuro: Alert, oriented x 3, able to follow simple commands, PERRL 3mm, CAM (-), BLE 5/5 strength and intact neurosensory bilat all dermatomes Cardiovascular: RRR, periphery warm with palpable pulses, no significant edema Pulmonary: Breath sounds clear to auscultation bilaterally, diminished bases, normal respiratory rate and effort GI: Abdomen obese, soft, non-distended, bowel sounds active : Voids Skin: Warm, dry Laboratory data: Recent Labs Lab Units 06/16/23 0000 06/14/23203006/14/23 0014 WBC K/cumm 9.6 11.7* 9.9 HEMOGLOBIN g/dL 9.7* 9.9* 9.3* HEMATOCRIT % 29.9* 30.5* 28.7* PLATELETS K/cumm 490* 513* 479* Recent Labs Lab Units 06/16/23 0000 06/14/23203006/14/23 0014 SODIUM mmol/L 138 139 138 POTASSIUM PLASMA mmol/L 3.0* 3.9 3.9 CHLORIDE mmol/L 105 106 107 CO2 mmol/L 23 21* 20* BUN SERUM mg/dL 9 10 15 CREATININE mg/dL 0.96 0.86 0.90 CALCIUM mg/dL 9.0 8.9 9.2 Recent Labs Lab Units 06/13/23 1307 PROTIME (PT) sec 14.9* INR 1.31* APTT sec 40* Review of the laboratory data shows: Plan: Unless specified below, will continue to monitor/trend. Diagnostic review (radiology / micro / other): CXR (06/15/2023) -not completed; last completed 06/13/23, no clinical indications for continued nightly imaging Impression and Plan: Active problems/Diagnoses: Plans: Neuro/Pain: #Acute on chronic pain #Back Pain-chronic Chronic back pain that has worsened over last few days - cont schedule tylenol, Robaxin, gabapentin - PRN Oxycodone, dilaudid #Nightmares Patient w/ hx of extreme nightmares - cont home Seroquel Cardiovascular: #Hypertension #Type B Dissection s/p TEVAR Discharged 06/09 with blood pressure regimen controlled with permissive hypertension SBP ~140. Patient reports taking medication as directed but SBP was 180 at home. Presents to ED with SBP 200 and increased groin and back pain. 06/13 CT : No change in aneurysmal. No stent migration. No increased in the false lumen perfusion. Anew pseudoaneurysm at left fem artery access site. No discitis-osteomyelitis or well-defined paravertebral abscess of spine 06/13 MRI: No acute abnormality of the thoracic spine with normal appearance of intervertebral disksand endplates without evidence of discitis/osteomyelitis. - Titrate Clevidipine for SBP goal 120-140 - cont impulse control in ICU per vascular recs - cont Labetalol 20 mg PRN for HR > 80 or SBP > 120 - cont Coreg 37.5 BID - cont hydral 100 TID - cont Norvasc 10 mg QD - cont q1h NV/NM checks -ok to get to chair (was able to perform during day shift w/o issue) - Pseudoaneurysm w/o injection at this time. US will not intervene at this item, Trend exam - vascular primary: CTS consulted for possible open repair Gastrointestinal: Diet: regular diet Heme/ID: #Acute Blood Loss Anemia -stable Expected following cardiac surgery. Hgb 9.9. No signs of active bleeding. - No current indication for transfusion, consider if patient becomes hemodynamically unstable with increased pressor requirements or Hgb < 8 and symptomatic - CBC daily #Leukocytosis-mild elevation #C/f Endovascular Graft Infection #C/f spinal infection Afebrile. Reports chills, fever and night sweats. 06/13 blood culture pending, MRI w/o signs of osteomyelitis/discitis - Continue Cefe/Vanc (06/13-), trend vanc trough; has NURSERY HELPER penetration - f/u MRI complete spine per ID recs; ordered 06/15. -ID following ICU Care to Include: Restraints: n/a DVT prophylaxis: SCDs, lovenox QD PUD prophylaxis: n/a. Nutrition: see above Bowel regimen: Docusate, Miralax, &Senna Physical therapy/Activity: OOB/PT when able to participate Drains: n/a Goals of care: Full code Resolved: Deniz rIeland PA-C Updates: Critical Care Performed by: Deniz Ireland PA Authorized by: Deniz Ireland PA CRITICAL CARE: Team: 83 CTICU Shift: PM Level of Billing: Critical Care My time spent with this patient was 90 minutes: Critical Provider Statement: I have seen and examined the patient on this day of service. I have reviewed and confirmed the history, physical exam, laboratory and radiologic data as documented in thesigned ICU note. I have reviewed and discussed my treatment plan with the ICU team and other medical/service consultant staff, making frequent assessments and decisions [...] or life-threatening deterioration of the following conditions: I spent time reviewing and interpreting data from bedside monitors, laboratory results, and imaging, I spent time discussing the management of this critically ill patient with consultants and the medical staff and I spent time documenting in the medical record Cosigned by Mehul Brooks MD at 06/17/2023 1:46 PM COMPANY LAUNDRY WORKER ANY LAUNDRY WORKER ANY LAUNDRY WORKER * Christina Landa, PT - 06/15/2023 1:18 PM CST Physical Therapy 06/15/23 1317 General PT Missed Visit Reason Other (comment) (unable to maintain SBP within parameters.) Recommendation/Plan PT Frequency during current admission Monitor status PT - Next Appointment 06/16/23 ANY LAUNDRY WORKER * Rosey Fine MD - 06/15/2023 9:38 AM CST Vascular Surgery Daily Progress Patient Name/MRN: Eriberto Chau [id number] Treatment Team: Vascular Surgery- Attending: Faustino Herrera MD Today's Date: 06/15/2023 Room/Bed: [id number] Admit Date: 06/13/2023 Code Status: Full Code Events Over Last 24 Hours: No acute events overnight. SBP controlled this morning. Denies abdominal pain, chest pain, nausea, fevers, chills. Allergies Allergen Reactions Amoxicillin Hives Current Facility-Administered Medications Medication Dose Route Frequency Provider Last Rate Last Admin acetaminophen (TYLENOL) tablet 1,000 mg 1,000 mg oral Q6H Mateo Campo NP 1,000 mg at 06/15/23 0513 amLODIPine (NORVASC) tablet 10 mg 10 mg oral Daily Sreekanth Armstrong NP 10 mg at 06/15/23 0840 Carrier Fluids for Secondary Infusion - 0.9% Sodium Chloride 30 mL intravenous PRN Mateo Diaz PROFESSOR OF NURSING 30 mL at 06/14/232152 carvediloL (COREG) tablet 37.5 mg 37.5 mg oral BID with meals (bkfst, dinner) Cristobal Cote MD 37.5 mg at 06/15/23 0840 cefepime (MAXIPIME) 2,000 mg/20 mL in sterile water (premix) 2,000 mg 2,000 mg intravenous Q8H SUSAN Mateo Diaz NP 240 mL/hr at 06/15/23 0900 Rate Verify at 06/15/23 0900 clevidipine (CLEVIPREX) 50 mg/100 mL (0.5 mg/mL) (premix) 0-32 mg/hr intravenous Titrated Mateo Diaz NP 28 mL/hr at 06/15/23 0902 14 mg/hr at 06/15/23 09 docusate sodium (COLACE) capsule 100 mg 100 mg oral BID Mateo Diaz, PROFESSOR OF NURSING 100 mg at 06/14/232120 enoxaparin (LOVENOX) syringe 40 mg 40 mg subcutaneous Daily-2100 Mateo Diaz PROFESSOR OF NURSING 40 mg at 06/14/232121 esmolol in 0.9% sodium chloride (BREVIBLOC) 2,500 mg/250 mL (10 mg/mL) infusion (premix) 0-300 mcg/kg/min intravenous Titrated Sreekanth Armstrong NP 175.5 mL/hr at 06/15/23 0900 300 mcg/kg/min at 06/15/23 0900 gabapentin (NEURONTIN) capsule 300 mg 300 mg oral TID Sreekanth Armstrong NP 300 mg at 06/15/23 0840 hydrALAZINE (APRESOLINE) tablet 100 mg 100 mg oral TID Mateo Diaz, PROFESSOR OF NURSING 100 mg at 06/15/23 0841 HYDROmorphone (DILAUDID) injection 1 mg 1 mg intravenous Q2H PRN Dalton Baker MD 1 mg at 06/15/23 0751 labetaloL (NORMODYNE,TRANDATE) injection 20 mg 20 mg intravenous Q4H PRN Akash Spears MD 20 mg at 06/14/23 194 Lactated Ringer's (LR) infusion 10 mL/hr intravenous Continuous aMteo Diaz PROFESSOR OF NURSING Stopped at 06/13/23 211 methocarbamoL (ROBAXIN) tablet 750 mg 750 mg oral QID Hortensia Guy MD 750 mg at 06/15/23 0840 ondansetron (ZOFRAN) injection 4 mg 4 mg intravenous Q6H PRN Mateo Diaz NP 4 mg at 06/15/23 0841 oxyCODONE (ROXICODONE) tablet 10 mg 10 mg oral Q4H PRN Cristobal Cote MD 10 mg at 06/15/23 0706 polyethylene glycol (MIRALAX) packet 17 g 17 g oral Daily Mateo Diaz NP QUEtiapine (SEROquel) tablet 50 mg 50 mg oral Nightly Sreekanth Armstrong NP senna (SENOKOT) tablet 1 tablet 1 tablet oral BID Mateo Diaz NP 1 tablet at 06/14/23 2121 sodium chloride 0.9% solution 3-12 mL/hr intra-catheter Continuous Mateo Diaz NP 3 mL/hr at 06/15/23 0900 3 mL/hr at 06/15/23 0900 vancomycin 1500 mg/515 mL in sodium chloride 0.9% (premix) 1,500 mg 15 mg/kg intravenous Q8H Mateo Diaz NP 1,500 mg at 06/15/23 0904 Objective Vitals: 24hr Min/Max: Temp Min: 36.3 ??C (97.4 ??F) Max: 37.2 ??C (98.9 ??F) Pulse Min: 66 Max: 86 BP Min: 121/56 Max: 150/88 Resp Min: 6 Max: 19 SpO2 Min: 90 % Max: 100 % Most Recent : Vitals: 06/15/23 0900 BP: Pulse: 74 Resp: 10 Temp: SpO2: 97% I/O last 2 completed shifts: In: 5184.3 [I.V.:3529.3; IV Piggyback:1655] Out: 2825 [Urine:2825] I/O this shift: In: 649.5 [I.V.:619.5; IV Piggyback:30] Out: 860 [Urine:860] Physical Exam: General appearance: appears stated age Constitutional: No acute distress Eyes: EOMI, anicteric Cardiovascular: Normal rate, regular rhythm Right Radial: palpable Right Femoral: palpable Right DP: palpable Left Radial: palpable Left Femoral: palpable Left DP: palpable Respiratory: non-labored breathing GI: Soft, non-tender; non-distended. No pusatile abdominal mass Muskuloskeletal: Extremities warm, sensation and motor function intact Neuro: Alert and oriented x4, non-focal Lab/Radiology/Diagnostic Review: Laboratory review: Lab results in the last 12 hours: No results found for this or any previous visit (from the past 12 hour(s)). Assessment/Plan Eriberto Chau is a 33 y.o. male with a history of type B aortic dissection s/p TBE, complicated byuncontrolled hypertension at home, readmitted with abdominal pain and nausea over a week ago, foundto have new entry tear distal to previous TBE graft, with signs of malperfusion, s/p TEVAR and dissection stent placement 06/05. Readmitted again from home with subjective fevers and chills, cultures so far negative. - To be presented at aortic conference tomorrow for further discussion between CTS and Vascular Surgery teams - Abx with NURSERY HELPER penetration - Continue impulse control in ICU for now - Diet as tolerated - No activity restrictions, can be OOB to chair and ambulate with assist as tolerated Rosey Fine MD Vascular Surgery Fellow [phone] Cosigned by Faustino Herrera MD at 06/15/2023 9:51 AM COMPANY LAUNDRY WORKER ANY LAUNDRY WORKER ANY LAUNDRY WORKER * Sreekanth Armstrong NP - 06/15/2023 7:15 AM CSTAssociated Order(s): Critical Care Post-Procedure Diagnose(s): Infrarenal abdominal aortic aneurysm, without rupture (HCC) CT ICU Daily Progress Shifts: NPP Shift Options: 8300 AM 2 Subjective Patient is a 33 y.o. male admitted to the hospital on 06/13/2023 12:39 PM with/following: Type B Aortic Dissection Overnight events: -atarax 25mg x1 -diaphoretic and anxiety -vanc trough 15.5 ICU course: 06/04: Admit for hypertensive urgency and bilat flank 4-5 days; renal doppler NL, esmolol & cardene infusions, bryant placement 06/05: TEVAR: L groin access, placed new graft within old graft that extends over distal portion of previous TEVAR graft that covers the new entry tear and stops above celiac artery. Placement of new uncovered stent graft to visceral aorta as the false lumen was compressing the true lumen. He is still filling false lumen. Lumbar drain in place 06/07: Lumbar Drain Removal 06/11: Discharged Home 06/13: Re admitted for ongoing hypertension and worsening ongoing back pain Objective Medications: Scheduled Meds:acetaminophen, 1,000 mg, oral, Q6H SUSAN amLODIPine, 10 mg, oral, Daily carvediloL, 37.5 mg, oral, BID with meals (bkfst, dinner) cefepime, 2,000 mg, intravenous, Q8H SUSAN docusate sodium, 100 mg, oral, BID enoxaparin, 40 mg, subcutaneous, Daily-2100 gabapentin, 300 mg, oral, TID hydrALAZINE, 100 mg, oral, TID magnesium oxide, 800 mg, oral, Once methocarbamoL, 750 mg, oral, QID polyethylene glycol, 17 g, oral, Daily QUEtiapine, 50 mg, oral, Nightly senna, 1 tablet, oral, BID vancomycin, 15 mg/kg, intravenous, Q8H Continuous Infusions:clevidipine, 0-32 mg/hr, Last Rate: 14 mg/hr (06/15/23 07) esmolol, 0-300 mcg/kg/min, Last Rate: 300 mcg/kg/min (06/15/23699) Lactated Ringer's, 10 mL/hr, Last Rate: Stopped (06/13/232118) sodium chloride 0.9%, 3-12 mL/hr, Last Rate: 3 mL/hr (06/15/23 07) Vitals: Temp: [36.3 ??C (97.4 ??F)-36.8 ??C (98.2 ??F)] 36.4 ??C (97.5 ??F) Pulse: [66-86] 83 BP: (107-150)/(56-88) 150/88 Resp: [6-19] 16 SpO2: [90 %-100 %] 95 % Fluid balance: I/O this shift: In: 206.5 [I.V.:206.5] Out: 200 [Urine:200] Intake/Output Summary (Last 24 hours) at 06/15/2023714 Last data filed at 06/15/2023 0705 Gross per 24 hour Intake 5234.04 ml Output 2825 ml Net 2409.04 ml Ventilator settings: Hemodynamic parameters: PAP: -- CVP: -- PCWP: -- CO: -- CI: -- SVO2: -- Pacemaker Overdrive Pacing: -- Cardiac Rhythm: Normal sinus rhythm (06/15 699) Pacer Mode: -- Physical exam: Neuro: Alert, oriented, able to follow simple commands, PERRL 3mm, CAM (-), BLE 5/5 strength Cardiovascular: RRR, periphery warm with palpable pulses, no significant edema Pulmonary: Breath sounds clear to auscultation bilaterally, diminished bases, normal respiratory rate and effort GI: Abdomen obese, soft, non-distended, bowel sounds active : Voids Skin: Warm, dry Laboratory data: Recent Labs Lab Units 06/14/23203006/14/23 0014 06/13/23 1307 WBC K/cumm 11.7* 9.9 10.5* HEMOGLOBIN g/dL 9.9* 9.3* 10.7* HEMATOCRIT % 30.5* 28.7* 34.2* PLATELETS K/cumm 513* 479* 462* Recent Labs Lab Units 06/14/23203006/14/23 0014 06/13/23 1320 06/13/23 1307 SODIUM mmol/L 139 138 -- 139 POTASSIUM PLASMA mmol/L 3.9 3.9 -- 4.1 CHLORIDE mmol/L 106 107 -- 105 CO2 mmol/L 21* 20* -- 23 BUN SERUM mg/dL 10 15 -- 16 CREATININE mg/dL 0.86 0.90 -- 0.81 CREATININE POC mg/dL -- -- 0.7 -- CALCIUM mg/dL 8.9 9.2 -- 9.6 Recent Labs Lab Units 06/13/23 1307 PROTIME (PT) sec 14.9* INR 1.31* APTT sec 40* Review of the laboratory data shows: Plan: Unless specified below, will continue to monitor/trend. Diagnostic review (radiology / micro / other): Review of CXR shows: Atelectasis Impression and Plan: Active problems/Diagnoses: Plans: Acute on chronic pain Chronic back pain that has worsened over last few days - schedule tylenol & Start Robaxin - PRN Oxycodone, dilaudid - Start home Lopez Nightmares Patient w/ hx of extreme nightmares - Restart home Seroquel Hypertension Type B Dissection s/p TEVAR Discharged 06/09 with blood pressure regimen controlled with permissive hypertension SBP ~140. Patient reports taking medication as directed but SBP was 180 at home. Presents to ED with SBP 200 and increased groin and back pain. 06/13 CT : No change in aneurysmal. No stent migration. No increased in the false lumen perfusion. Anew pseudoaneurysm at left fem artery access site. No discitis-osteomyelitis or well-defined paravertebral abscess of spine 06/13 MRI: No acute abnormality of the thoracic spine with normal appearance of intervertebral disksand endplates without evidence of discitis/osteomyelitis. - Titrate Clevidipine for SBP goal 120-140 - Stop Esmolol gtt - Start Labetalol 20 mg for HR > 80 or Sbp > 120 - Coreg 37.5 BID - hydral 100 TID - Start Norvasc 10 mg - vascular primary - Consult CTS for possible open repair - q1h NV/NM checks - Pseudoaneurysm w/o injection at this time. US will not intervene at this item, Trend exam Anemia Following vascular surgery from previous admission. No signs of active bleeding. Hgb stable 9-10, Plt > 150 - No current indication for transfusion, consider if patient becomes hemodynamically unstable with increased pressor requirements or Hgb < 8 and symptomatic - CBC daily Leukocytosis C/f Endovascular Graft Infection Afebrile. Reports chills, fever and night sweats, WBC decreasing 06/13 blood culture pending, MRI w/o signs of osteomyelitis/discitis - Continue Cefe/Vanc (06/13-), trend vanc trough - Consult ID for fevers and chills after original surgery, Vascular surgery wants CSF penetration ICU Standards of Care Restraints: NA Diet: regular DVT ppx: SCD's, lovenox PUD ppx: NA Activity: as tolerated Bowel reg: Colace, Senna, and Miralax GOC: full code Resolved problems: Updates: Sreekanth Armstrong NP Critical Care Performed by: Sreekanth Armstrong NP Authorized by: Sreekanth Armstrong NP CRITICAL CARE: Team: 83 CTICU Shift: AM Level of Billing: Critical Care My time spent with this patient was 90 minutes: Critical Provider Statement: I have seen and examined the patient on this day of service. I have reviewed and confirmed the history, physical exam, laboratory and radiologic data as documented in thesigned ICU note. I have reviewed and discussed my treatment plan with the ICU team and other medical/service consultant staff, making frequent assessments and decisions [...] or life-threatening deterioration of the following conditions: I spent time reviewing and interpreting data from bedside monitors, laboratory results, and imaging, I spent time discussing the management of this critically ill patient with consultants and the medical staff and I spent time documenting in the medical record Cosigned by Mehul Brooks MD at 06/17/2023 1:45 PM COMPANY [employer]DR[employer] WORKER ANY LAUNDRY WORKER ANY LAUNDRY WORKER * Su Lu NP - 06/14/2023 7:02 PM CSTAssociated Order(s): Critical Care Post-Procedure Diagnose(s): Infrarenal abdominal aortic aneurysm, without rupture (HCC) CT ICU Daily Progress Shifts: NPP Shift Options: 8300 PM 2 Subjective Patient is a 33 y.o. male admitted to the hospital on 06/13/2023 12:39 PM with/following: Type B Aortic Dissection Interval events: CTSx consulted Increased coreg dosage ICU course: 06/04: Admit for hypertensive urgency and bilat flank 4-5 days; renal doppler NL, esmolol & cardene infusions, bryant placement 06/05: TEVAR: L groin access, placed new graft within old graft that extends over distal portion of previous TEVAR graft that covers the new entry tear and stops above celiac artery. Placement of new uncovered stent graft to visceral aorta as the false lumen was compressing the true lumen. He is still filling false lumen. Lumbar drain in place 06/07: Lumbar Drain Removal 06/11: Discharged Home 06/13: Re admitted for ongoing hypertension and worsening ongoing back pain Objective Medications: Scheduled Meds:acetaminophen, 1,000 mg, oral, Q6H SUSAN carvediloL, 37.5 mg, oral, BID with meals (bkfst, dinner) cefepime, 2,000 mg, intravenous, Q8H SUSAN docusate sodium, 100 mg, oral, BID enoxaparin, 40 mg, subcutaneous, Daily-2100 hydrALAZINE, 100 mg, oral, TID methocarbamoL, 750 mg, oral, QID polyethylene glycol, 17 g, oral, Daily senna, 1 tablet, oral, BID vancomycin, 15 mg/kg, intravenous, Q8H Continuous Infusions:clevidipine, 0-32 mg/hr, Last Rate: 3 mg/hr (06/14/231799) esmolol, 0-300 mcg/kg/min, Last Rate: 200 mcg/kg/min (06/14/231799) Lactated Ringer's, 10 mL/hr, Last Rate: Stopped (06/13/232118) sodium chloride 0.9%, 3-12 mL/hr, Last Rate: 3 mL/hr (06/14/231799) Vitals: Temp: [36.3 ??C (97.4 ??F)-37.4 ??C (99.3 ??F)] 36.3 ??C (97.4 ??F) Pulse: [66-82] 74 BP: (107-150)/(56-88) 150/88 Resp: [0-20] 14 SpO2: [94 %-100 %] 100 % Arterial Line BP: (175)/(77) 175/77 Fluid balance: No intake/output data recorded. Intake/Output Summary (Last 24 hours) at 06/14/2023 1902 Last data filed at 06/14/2023 1810 Gross per 24 hour Intake 4017.73 ml Output 1625 ml Net 2392.73 ml Ventilator settings: Hemodynamic parameters: PAP: -- CVP: -- PCWP: -- CO: -- CI: -- SVO2: -- Pacemaker Overdrive Pacing: -- Cardiac Rhythm: Normal sinus rhythm (06/14 1800) Pacer Mode: -- Physical exam: Neuro: Alert, oriented, restless, able to follow simple commands, PERRL Cardiovascular: RRR, periphery warm with palpable pulses, no significant edema Pulmonary: Breath sounds clear to auscultation bilaterally, diminished bases, normal respiratory rate and effort GI: Abdomen soft, non-distended, bowel sounds active : voids Skin: Warm, dry Laboratory data: Recent Labs Lab Units 06/14/23 0014 06/13/23 1307 06/11/23 0321 WBC K/cumm 9.9 10.5* 8.7 HEMOGLOBIN g/dL 9.3* 10.7* 10.2* HEMATOCRIT % 28.7* 34.2* 32.6* PLATELETS K/cumm 479* 462* 334 Recent Labs Lab Units 06/14/23 0014 06/13/23 1320 06/13/23 1307 06/11/23 0321 SODIUM mmol/L 138 -- 139 143 POTASSIUM PLASMA mmol/L 3.9 -- 4.1 3.8 CHLORIDE mmol/L 107 -- 105 107 CO2 mmol/L 20* -- 23 23 BUN SERUM mg/dL 15 -- 16 12 CREATININE mg/dL 0.90 -- 0.81 0.80 CREATININE POC mg/dL -- 0.7 -- -- CALCIUM mg/dL 9.2 -- 9.6 9.1 Recent Labs Lab Units 06/13/23 1307 PROTIME (PT) sec 14.9* INR 1.31* APTT sec 40* Review of the laboratory data shows: Diagnostic review (radiology / micro / other): I have personally reviewed the above labs and microbiology results. I have personally reviewed the radiology exams in the past 24h. Impression and Plan: Active problems/Diagnoses: Plans: Acute on chronic pain Chronic back pain that has worsened over last few days, pain at left femoral site - schedule tylenol & Start Robaxin - PRN Oxycodone, dilaudid Hypertension Type B Dissection s/p TEVAR Discharged 06/09 with blood pressure regimen controlled with permissive hypertension SBP ~140. Patient reports taking medication as directed but SBP was 180 at home. Presents to ED with SBP 200 and increased groin and back pain. 06/13 CT : No change in aneurysmal. No stent migration. No increased in the false lumen perfusion. Anew pseudoaneurysm at left fem artery access site. No discitis-osteomyelitis or well-defined paravertebral abscess of spine 06/13 MRI: No acute abnormality of the thoracic spine with normal appearance of intervertebral disksand endplates without evidence of discitis/osteomyelitis. - Titrate Clevidipine and esmolol gtt HR < 70 and SBP goal 120-140 - Increase coreg 37.5 BID - hydral 100 TID - vascular primary - Consult CTS for possible open repair - q1h NV/NM checks - Pseudoaneurysm w/o injection at this time. US will not intervene at this item, Trend exam Anemia Following vascular surgery from previous admission. No signs of active bleeding. Hgb stable 9-10, Plt > 150 - No current indication for transfusion, consider if patient becomes hemodynamically unstable with increased pressor requirements or Hgb < 7 and symptomatic - CBC daily Leukocytosis C/f Endovascular Graft Infection Afebrile. Reports chills, fever and night sweats, WBC decreasing 06/13 blood culture pending, MRI w/o signs of osteomyelitis/discitis Vanc Trough 15.5 This evening patient diaphoretic with chills, afebrile and no pain. Cultures remain negative . - Continue Cefe/Vanc (06/13-) ICU Standards of Care - Daily ASA - Colace, Senna, and Miralax for bowel regimen - DVT ppx: SCDs, lovenox - PUD ppx: N/A - Regular Updates: 2100- Patient with anxiety and restlessness, chills and sweating have stopped. Atarax 25mg x1 given Su Lu NP Critical Care Performed by: Su Lu NP Authorized by: Su Lu NP CRITICAL CARE: Team: 83 CTICU Shift: PM Level of Billing: Critical Care My time spent with this patient was 75 minutes: Critical Provider Statement: I have seen and examined the patient on this day of service. I have reviewed and confirmed the history, physical exam, laboratory and radiologic data as documented in thesigned ICU note. I have reviewed and discussed my treatment plan with the ICU team and other medical/service consultant staff, making frequent assessments and decisions [...] or life-threatening deterioration of the following conditions: I spent time reviewing and interpreting data from bedside monitors, laboratory results, and imaging, I spent time discussing the management of this critically ill patient with consultants and the medical staff and I spent time documenting in the medical record Cosigned by Mehul Brooks MD at 06/15/2023 8:28 AM [employer] WORK[employer] ANY LAUNDRY WORKER ANY LAUNDRY WORKER * Dc Lopez OT - 06/14/2023 9:55 AM CST Occupational Therapy 06/14/23 0900 General OT Missed Visit Reason (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 MAP currently at 88 outside of SBP goal of 120-140) ANY LAUNDRY WORKER ANY LAUNDRY WORKER * Rosey Fine MD - 06/14/2023 8:43 AM CST Vascular Surgery Daily Progress Patient Name/MRN: Eriberto Chau [id number] Treatment Team: Vascular Surgery- Attending: Faustino Herrera MD Today's Date: 06/14/2023 Room/Bed: [id number] Admit Date: 06/13/2023 Code Status: Prior Events Over Last 24 Hours: No acute events overnight. Patient complained of some new low back pain after lying flat for MRI last night. Denies same pain this morning. Denies abdominal pain, chest pain, nausea, fevers, chills. Allergies Allergen Reactions Amoxicillin Hives Current Facility-Administered Medications Medication Dose Route Frequency Provider Last Rate Last Admin acetaminophen (TYLENOL) tablet 1,000 mg 1,000 mg oral Q6H Mateo Campo, PROFESSOR OF NURSING 1,000 mg at 06/14/23526 Carrier Fluids for Secondary Infusion - 0.9% Sodium Chloride 30 mL intravenous PRN Mateo Diaz, PROFESSOR OF NURSING carvediloL (COREG) tablet 25 mg 25 mg oral BID with meals (bkfst, dinner) Jae Toledo MD 25 mg at 06/14/23 0719 cefepime (MAXIPIME) 2,000 mg/20 mL in sterile water (premix) 2,000 mg 2,000 mg intravenous Q8H SUSAN Mateo Diaz, PROFESSOR OF NURSING 240 mL/hr at 06/14/23 05 2,000 mg at 06/14/23 05 clevidipine (CLEVIPREX) 50 mg/100 mL (0.5 mg/mL) (premix) 0-32 mg/hr intravenous Titrated Mateo Diaz PROFESSOR OF NURSING 6 mL/hr at 06/14/23 0700 3 mg/hr at 06/14/23 0700 docusate sodium (COLACE) capsule 100 mg 100 mg oral BID Mateo Diaz, PROFESSOR OF NURSING 100 mg at 06/13/232038 Or docusate (COLACE) 10 mg/mL oral liquid 100 mg 100 mg feeding tube BID Mateo Diaz, PROFESSOR OF NURSING enoxaparin (LOVENOX) syringe 40 mg 40 mg subcutaneous Daily-2100 Mateo Diaz PROFESSOR OF NURSING 40 mg at 06/13/232038 esmolol in 0.9% sodium chloride (BREVIBLOC) 2,500 mg/250 mL (10 mg/mL) infusion (premix) 0-300 mcg/kg/min intravenous Titrated Jae Toledo MD 87.8 mL/hr at 06/14/23 0831 150 mcg/kg/min at 06/14/23 0831 hydrALAZINE (APRESOLINE) tablet 100 mg 100 mg oral TID Mateo Diaz NP 100 mg at 06/14/23 0829 HYDROmorphone (DILAUDID) injection 1 mg 1 mg intravenous Q2H PRN Dalton Bakre MD 1 mg at 06/14/23 0757 labetaloL (NORMODYNE,TRANDATE) injection 20 mg 20 mg intravenous Q4H PRN Akash Spears MD Lactated Ringer's (LR) infusion 10 mL/hr intravenous Continuous Mateo Diaz NP Stopped at 06/13/232118 ondansetron (ZOFRAN) injection 4 mg 4 mg intravenous Q6H PRN Mateo Diaz NP 4 mg at 06/14/23 0756 oxyCODONE (ROXICODONE) tablet 5 mg 5 mg oral Q4H PRN Mehul Brooks MD 5 mg at 06/14/23 0719 polyethylene glycol (MIRALAX) packet 17 g 17 g oral Daily Mateo Diaz NP senna (SENOKOT) tablet 1 tablet 1 tablet oral BID Mateo Diaz NP 1 tablet at 06/13/232038 Or senna 1.76 mg/mL syrup 8.8 mg 8.8 mg feeding tube BID Mateo Diaz, PROFESSOR OF NURSING sodium chloride 0.9% solution 3-12 mL/hr intra-catheter Continuous Mateo Diaz NP 3 mL/hr at 06/14/23 0700 3 mL/hr at 06/14/23 0700 vancomycin 1500 mg/515 mL in sodium chloride 0.9% (premix) 1,500 mg 15 mg/kg intravenous Q8H Mateo Diaz, PROFESSOR OF NURSING 1,500 mg at 06/14/23 0200 Objective Vitals: 24hr Min/Max: Temp Min: 36.6 ??C (97.9 ??F) Max: 37.4 ??C (99.3 ??F) Pulse Min: 67 Max: 93 BP Min: 146/87 Max: 181/111 Resp Min: 0 Max: 20 SpO2 Min: 93 % Max: 100 % Most Recent : Vitals: 06/14/23 0700 BP: Pulse: 68 Resp: 12 Temp: SpO2: 99% I/O last 2 completed shifts: In: 2501.4 [I.V.:1946.4; IV Piggyback:555] Out: 775 [Urine:775] I/O this shift: In: 156.8 [I.V.:156.8] Out: 200 [Urine:200] Physical Exam: General appearance: appears stated age Constitutional: No acute distress Eyes: EOMI, anicteric Cardiovascular: Normal rate, regular rhythm Right Radial: palpable Right Femoral: palpable Right DP: palpable Left Radial: palpable Left Femoral: palpable Left DP: palpable Respiratory: non-labored breathing GI: Soft, non-tender; non-distended. No pusatile abdominal mass Muskuloskeletal: Extremities warm, sensation and motor function intact Neuro: Alert and oriented x4, non-focal Lab/Radiology/Diagnostic Review: Laboratory review: Lab results in the last 12 hours: Recent Results (from the past 12 hour(s)) CBC without differential Collection Time: 06/14/23 12:14 AM Result Value Ref Range WBC 9.9 3.8 - 9.9 K/cumm Hgb 9.3 (L) 13.0 - 17.5 g/dL Hct 28.7 (L) 38.9 - 50.3 % Plt 479 (H) 150 - 400 K/cumm MPV 8.9 (L) 9.1 - 12.3 fL RBC 3.25 (L) 4.30 - 5.80 M/cumm MCV 88.3 81.3 - 96.4 fL MCH 28.6 27.1 - 33.3 pg MCHC 32.4 32.3 - 35.7 g/dL RDW CV 13.6 11.1 - 14.9 % RDW SD 44.1 35.7 - 48.1 fL NRBC abs 0.00 0.00 - 0.01 K/cumm Magnesium Collection Time: 06/14/23 12:14 AM Result Value Ref Range Magnesium 2.1 1.4 - 2.5 mg/dL Phosphorus Collection Time: 06/14/23 12:14 AM Result Value Ref Range Phosphorus, pl 3.1 2.3 - 4.5 mg/dL Comprehensive metabolic panel Collection Time: 06/14/23 12:14 AM Result Value Ref Range Sodium 138 135 - 145 mmol/L Potassium, pl 3.9 3.3 - 4.9 mmol/L Chloride 107 97 - 110 mmol/L CO2 20 (L) 22 - 32 mmol/L Anion gap 11 2 - 15 mmol/L BUN 15 6 - 25 mg/dL Creatinine 0.90 0.80 - 1.30 mg/dL Glucose 122 70 - 199 mg/dL Calcium 9.2 8.5 - 10.3 mg/dL Bilirubin, total 0.4 0.1 - 1.2 mg/dL Protein, pl 8.0 6.5 - 8.5 g/dL Albumin 3.5 3.5 - 5.0 g/dL Alk phos 100 40 - 130 Units/L ALT 23 7 - 55 Units/L AST 14 10 - 50 Units/L Lactate, whole blood Collection Time: 06/14/23 12:14 AM Result Value Ref Range Lactate, bld 1.8 0.7 - 2.0 mmol/L eGFR Collection Time: 06/14/23 12:14 AM Result Value Ref Range eGFR >90 >=60 mL/min/1.73 m2 Assessment/Plan Eriberto Chau is a 33 y.o. male with a history of type B aortic dissection s/p TBE, complicated byuncontrolled hypertension at home, readmitted with abdominal pain and nausea over a week ago, foundto have new entry tear distal to previous TBE graft, with signs of malperfusion, s/p TEVAR and dissection stent placement 06/05. Readmitted again from home with subjective fevers and chills, cultures so far negative. - CTS consult for discussion of open repair - Follow up MRI results - Follow up final cultures - Continue impulse control in ICU for now - Diet as tolerated - No activity restrictions, can be OOB to chair and ambulate with assist as tolerated Rosey Fine MD Vascular Surgery Fellow [phone] Cosigned by Faustino Herrera MD at 06/15/2023 9:51 AM COMPANY [employer] WORKER ANY LAUNDRY WORKER ANY LAUNDRY WORKER * Guillermina Guillen - 06/14/2023 8:22 AM CST Physical Therapy 06/14/23 0800 General PT Missed Visit Reason Other (comment) (PT deferred with pending discussion with CTS for possible open repair for pseudoaneurysm at left fem artery access site.) Cosigned by Rose Todd, PT at 06/14/2023 2:16 PM COMPANY [employer] WORK[employer] ANY LAUNDRY WORKER ANY LAUNDRY WORKER * Sreekanth Armstrong NP - 06/14/2023 7:05 AM CSTAssociated Order(s): Critical Care Post-Procedure Diagnose(s): Infrarenal abdominal aortic aneurysm, without rupture (HCC) CT ICU Daily Progress Shifts: NPP Shift Options: 8300 AM 2 Subjective Patient is a 33 y.o. male admitted to the hospital on 06/13/2023 12:39 PM with/following: Type B Aortic Dissection Overnight events: - Unable to tolerate MRI 2/2 new pain w/ MRI ICU course: 06/04: Admit for hypertensive urgency and bilat flank 4-5 days; renal doppler NL, esmolol & cardene infusions, bryant placement 06/05: TEVAR: L groin access, placed new graft within old graft that extends over distal portion of previous TEVAR graft that covers the new entry tear and stops above celiac artery. Placement of new uncovered stent graft to visceral aorta as the false lumen was compressing the true lumen. He is still filling false lumen. Lumbar drain in place 06/07: Lumbar Drain Removal 06/11: Discharged Home 06/13: Re admitted for ongoing hypertension and worsening ongoing back pain Objective Medications: Scheduled Meds:acetaminophen, 1,000 mg, oral, Q6H SUSAN carvediloL, 25 mg, oral, BID with meals (bkfst, dinner) cefepime, 2,000 mg, intravenous, Q8H SUSAN docusate sodium, 100 mg, oral, BID Or docusate, 100 mg, feeding tube, BID enoxaparin, 40 mg, subcutaneous, Daily-2100 hydrALAZINE, 100 mg, oral, TID polyethylene glycol, 17 g, oral, Daily senna, 1 tablet, oral, BID Or senna, 8.8 mg, feeding tube, BID vancomycin, 15 mg/kg, intravenous, Q8H Continuous Infusions:clevidipine, 0-32 mg/hr, Last Rate: 3 mg/hr (06/14/23599) esmolol, 0-300 mcg/kg/min, Last Rate: 200 mcg/kg/min (06/14/23653) Lactated Ringer's, 10 mL/hr, Last Rate: Stopped (06/13/232118) sodium chloride 0.9%, 3-12 mL/hr, Last Rate: 3 mL/hr (06/14/23599) Vitals: Temp: [36.6 ??C (97.9 ??F)-37.4 ??C (99.3 ??F)] 36.8 ??C (98.2 ??F) Pulse: [67-93] 67 BP: (146-181)/(86-111) 146/87 Resp: [0-20] 15 SpO2: [93 %-100 %] 98 % Arterial Line BP: (166-181)/(67-77) 175/77 Fluid balance: No intake/output data recorded. Intake/Output Summary (Last 24 hours) at 06/14/2023704 Last data filed at 06/14/2023 0600 Gross per 24 hour Intake 2501.36 ml Output 775 ml Net 1726.36 ml Ventilator settings: Hemodynamic parameters: PAP: -- CVP: -- PCWP: -- CO: -- CI: -- SVO2: -- Pacemaker Overdrive Pacing: -- Cardiac Rhythm: Normal sinus rhythm (06/14 599) Pacer Mode: -- Physical exam: Neuro: Alert, oriented, able to follow simple commands, PERRL 3mm, CAM (-) Cardiovascular: RRR, periphery warm with palpable pulses, no significant edema Pulmonary: Breath sounds clear to auscultation bilaterally, diminished bases, normal respiratory rate and effort GI: Abdomen obese, soft, non-distended, bowel sounds active : Voids Skin: Warm, dry Laboratory data: Recent Labs Lab Units 06/14/23 0014 06/13/23 1307 06/11/23 0321 WBC K/cumm 9.9 10.5* 8.7 HEMOGLOBIN g/dL 9.3* 10.7* 10.2* HEMATOCRIT % 28.7* 34.2* 32.6* PLATELETS K/cumm 479* 462* 334 Recent Labs Lab Units 06/14/23 0014 06/13/23 1320 06/13/23 1307 06/11/23 0321 SODIUM mmol/L 138 -- 139 143 POTASSIUM PLASMA mmol/L 3.9 -- 4.1 3.8 CHLORIDE mmol/L 107 -- 105 107 CO2 mmol/L 20* -- 23 23 BUN SERUM mg/dL 15 -- 16 12 CREATININE mg/dL 0.90 -- 0.81 0.80 CREATININE POC mg/dL -- 0.7 -- -- CALCIUM mg/dL 9.2 -- 9.6 9.1 Recent Labs Lab Units 06/13/23 1307 PROTIME (PT) sec 14.9* INR 1.31* APTT sec 40* Review of the laboratory data shows: Plan: Unless specified below, will continue to monitor/trend. Diagnostic review (radiology / micro / other): Review of CXR shows: Atelectasis Impression and Plan: Active problems/Diagnoses: Plans: Acute on chronic pain Chronic back pain that has worsened over last few days, pain at left femoral site - schedule tylenol & Start Robaxin - PRN Oxycodone, dilaudid Hypertension Type B Dissection s/p TEVAR Discharged 06/09 with blood pressure regimen controlled with permissive hypertension SBP ~140. Patient reports taking medication as directed but SBP was 180 at home. Presents to ED with SBP 200 and increased groin and back pain. 06/13 CT : No change in aneurysmal. No stent migration. No increased in the false lumen perfusion. Anew pseudoaneurysm at left fem artery access site. No discitis-osteomyelitis or well-defined paravertebral abscess of spine 06/13 MRI: No acute abnormality of the thoracic spine with normal appearance of intervertebral disksand endplates without evidence of discitis/osteomyelitis. - Titrate Clevidipine and esmolol gtt HR < 70 and SBP goal 120-140 - Increase coreg 37.5 BID - hydral 100 TID - vascular primary - Consult CTS for possible open repair - q1h NV/NM checks - Pseudoaneurysm w/o injection at this time. US will not intervene at this item, Trend exam Anemia Following vascular surgery from previous admission. No signs of active bleeding. Hgb stable 9-10, Plt > 150 - No current indication for transfusion, consider if patient becomes hemodynamically unstable with increased pressor requirements or Hgb < 7 and symptomatic - CBC daily Leukocytosis C/f Endovascular Graft Infection Afebrile. Reports chills, fever and night sweats, WBC decreasing 06/13 blood culture pending, MRI w/o signs of osteomyelitis/discitis - Continue Cefe/Vanc (06/13-) - vanc trough 1800 today 06/14 ICU Standards of Care Restraints: NA Diet: regular DVT ppx: SCD's, lovenox PUD ppx: NA Activity: as tolerated Bowel reg: Colace, Senna, and Miralax GOC: full code Resolved problems: Updates: Sreekanth Armstrong NP Critical Care Performed by: Sreekanth Armstrong NP Authorized by: Sreekanth Armstrong NP CRITICAL CARE: Team: 83 CTICU Shift: AM Level of Billing: Critical Care My time spent with this patient was 100 minutes: Critical Provider Statement: I have seen and examined the patient on this day of service. I have reviewed and confirmed the history, physical exam, laboratory and radiologic data as documented in thesigned ICU note. I have reviewed and discussed my treatment plan with the ICU team and other medical/service consultant staff, making frequent assessments and decisions [...] or life-threatening deterioration of the following conditions: I spent time reviewing and interpreting data from bedside monitors, laboratory results, and imaging, I spent time discussing the management of this critically ill patient with consultants and the medical staff and I spent time documenting in the medical record Cosigned by Mehul Brooks MD at 06/15/2023 8:25 AM [employer]DR[employer] WORKER ANY LAUNDRY WORKER ANY LAUNDRY WORKER * Ayse Macias NP - 06/13/2023 10:43 PM CSTAssociated Order(s): Critical Care Post-Procedure Diagnose(s): Infrarenal abdominal aortic aneurysm, without rupture (HCC) CT ICU Daily Progress Shifts: NPP Shift Options: 8300 PM 1 Subjective Patient is a 33 y.o. male admitted to the hospital on 06/13/2023 12:39 PM with/following: HTN Interval History: -worsening back pain, increase dilaudid -unable to complete MRI d/t acute left flank pain once scan started -vascular surgery notified of worsening pain and inability to obtain MRI -LFT's and lactate remain WNL, neurovascular exam unchanged -nausea and vomiting, compazine x1 Objective Medications: Scheduled Meds:acetaminophen, 1,000 mg, oral, Q6H SUSAN carvediloL, 25 mg, oral, BID with meals (bkfst, dinner) cefepime, 2,000 mg, intravenous, Q8H SUSAN docusate sodium, 100 mg, oral, BID Or docusate, 100 mg, feeding tube, BID enoxaparin, 40 mg, subcutaneous, Daily-2100 hydrALAZINE, 100 mg, oral, TID HYDROmorphone, 1 mg, intravenous, Once polyethylene glycol, 17 g, oral, Daily senna, 1 tablet, oral, BID Or senna, 8.8 mg, feeding tube, BID vancomycin, 15 mg/kg, intravenous, Q8H Continuous Infusions:clevidipine, 0-32 mg/hr, Last Rate: 6 mg/hr (06/13/232127) esmolol, 0-300 mcg/kg/min, Last Rate: 200 mcg/kg/min (06/13/232154) Lactated Ringer's, 10 mL/hr, Last Rate: 10 mL/hr (06/13/231999) sodium chloride 0.9%, 3-12 mL/hr, Last Rate: 3 mL/hr (06/13/231999) Vitals: Temp: [37.1 ??C (98.8 ??F)-37.4 ??C (99.3 ??F)] 37.3 ??C (99.1 ??F) Pulse: [73-93] 73 BP: (146-181)/(86-111) 146/87 Resp: [0-18] 8 SpO2: [93 %-100 %] 97 % Arterial Line BP: (166-181)/(67-77) 175/77 Fluid balance: I/O this shift: In: 765.7 [I.V.:230.7; IV Piggyback:535] Out: - Intake/Output Summary (Last 24 hours) at 06/13/20232243 Last data filed at 06/13/20231999 Gross per 24 hour Intake 854.94 ml Output 250 ml Net 604.94 ml Ventilator settings: Hemodynamic parameters: PAP: -- CVP: -- PCWP: -- CO: -- CI: -- SVO2: -- Pacemaker Overdrive Pacing: -- Cardiac Rhythm: Normal sinus rhythm (06/13 2199) Pacer Mode: -- Physical exam: Neuro: Alert, oriented, TTP thoracic spine, intermittent left flank pain CV: RRR, periphery warm with palpable pulses, no significant edema Pulmonary: Breath sounds clear to auscultation bilaterally, diminished bases, normal respiratory rate and effort GI: Abdomen, soft, non-distended, bowel sounds active : voids Skin: Warm, dry, left fem site ecchymotic and tender to palpation C/D/I Laboratory data: Recent Labs Lab Units 06/13/23 1307 06/11/23 0321 06/10/23 0524 WBC K/cumm 10.5* 8.7 9.5 HEMOGLOBIN g/dL 10.7* 10.2* 10.7* HEMATOCRIT % 34.2* 32.6* 32.8* PLATELETS K/cumm 462* 334 333 Recent Labs Lab Units 06/13/23 1320 06/13/23 1307 06/11/23 0321 06/10/23 0524 SODIUM mmol/L -- 139 143 141 POTASSIUM PLASMA mmol/L -- 4.1 3.8 3.5 CHLORIDE mmol/L -- 105 107 104 CO2 mmol/L -- 23 23 26 BUN SERUM mg/dL -- 16 12 11 CREATININE mg/dL -- 0.81 0.80 0.77* CREATININE POC mg/dL 0.7 -- -- -- CALCIUM mg/dL -- 9.6 9.1 9.2 Recent Labs Lab Units 06/13/23 1307 PROTIME (PT) sec 14.9* INR 1.31* APTT sec 40* Impression and Plan: Active problems/Plans: Acute on chronic pain Chronic back pain that has worsened over last few days, pain at left femoral site - schedule tylenol - PRN Oxycodone, dilaudid Hypertension Type B Dissection s/p TEVAR Discharged 06/09 with blood pressure regimen controlled with permissive hypertension SBP ~140. Patient reports taking medication as directed but SBP was 180 at home. Presents to ED with SBP 200 and increased groin and back pain. 06/13 CT : No change in aneurysmal. No stent migration. No increased in the false lumen perfusion. A new pseudoaneurysm at left fem artery access site. No discitis-osteomyelitis or well-defined paravertebral abscess of spine - SBP goal 120-140 - clevidipine and esmolol gtt - coreg 25 BID - hydral 100 TID - vascular primary, pending discussion with CTS for possible open repair - q1h NV/NM checks Anemia following vascular surgery from previous admission. No signs of active bleeding. - No current indication for transfusion, consider if patient becomes hemodynamically unstable with increased pressor requirements or Hgb < 7 and symptomatic - CBC daily Leukocytosis C/f Endovascular Graft Infection Afebrile. Reports chills, fever and night sweats - 06/13 blood culture pending - 06/13 cefe, vanc - bartonella, Qfever, histoplasma antibody& antigen ICU Standards of Care Restraints: NA Diet: regular DVT ppx: SCD's, lovenox PUD ppx: NA Activity: as tolerated Bowel reg: Colace, Senna, and Miralax GOC: full code FRANSICO Watson-BC Critical Care Performed by: Ayse Macias NP Authorized by: Ayse Macias NP CRITICAL CARE: Team: 83 CTICU Shift: PM Level of Billing: Critical Care My time spent with this patient was 150 minutes: Critical Provider Statement: I have seen and examined the patient on this day of service. I have reviewed and confirmed the history, physical exam, laboratory and radiologic data as documented in thesigned ICU note. I have reviewed and discussed my treatment plan with the ICU team and other medical/service consultant staff, making frequent assessments and decisions [...] or life-threatening deterioration of the following conditions: I spent time reviewing and interpreting data from bedside monitors, laboratory results, and imaging, I spent time discussing the management of this critically ill patient with consultants and the medical staff and I spent time documenting in the medical record Cosigned by Mehul Brooks MD at 06/15/2023 8:25 AM COMPANY LAUNDRY WORKER ANY LAUNDRY WORKER ANY LAUNDRY WORKER documented in this encounter H&P Notes * Mateo Diaz NP - 06/13/2023 5:36 PM CSTAssociated Order(s): Critical Care CT ICU History and Physical Shifts: NPP Shift Options: 8300 AM 1 Subjective Patient is a 33 y.o. male admitted to the hospital on 06/13/2023 12:39 PM Chief Complaint / Reason for admission to CTICU HTN HPI: 33 y.o M with hx HTN, chronic abdominal pain, mood disorder, AAA s/p TEVAR 06/05 (placed new graft within old graft that extends over distal portion of previous TEVAR graft that covers the new entry tear and stops above celiac artery). 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 He presents to the ED today 06/[address] Herrera with several days of hypertension and painin his back and left groin at his TEVAR site. He reports taking his antihypertensives as instructedbut SBP is 170-180 rather than goal of permissive hypertension ~140 for spinal cord perfusion. He also reports having intermittent fever, chills and night sweats, denies N/V, cough, SOB. Denies numbness, weakness and tingling. He is admitted to the CTICU for impulse control Past Medical History: Diagnosis Date ??? Hypertension ??? Kidney stones Past Surgical History: Procedure Laterality Date ??? ABDOMINAL AORTIC ANEURYSM REPAIR HOME MEDICATIONS : acetaminophen 500 mg capsule albuterol HFA (PROVENTIL HFA,VENTOLIN HFA,PROAIR HFA) 90 mcg/actuation inhaler amLODIPine (NORVASC) 5 mg tablet aspirin 81 mg chewable tablet carvediloL (COREG) 25 mg tablet gabapentin (NEURONTIN) 300 mg capsule hydrALAZINE (APRESOLINE) 25 mg tablet lidocaine (ASPERCREME) 4 % adhesive patch,medicated methocarbamoL (ROBAXIN) 750 mg tablet ondansetron ODT (ZOFRAN-ODT) 4 mg disintegrating tablet oxyCODONE (ROXICODONE) 10 mg tablet polyethylene glycol (MIRALAX) 17 gram/dose bulk powder QUEtiapine (SEROquel) 50 mg tablet senna-docusate (PERICOLACE) 8.6-50 mg tamsulosin (FLOMAX) 0.4 mg extended release capsule Allergies Allergen Reactions ??? Amoxicillin Hives Social History Tobacco Use ??? Smoking status: Never ??? Smokeless tobacco: Never Substance and Sexual Activity ??? Drug use: Not Currently ??? Sexual activity: None Alcohol Use: Not on file History reviewed. No pertinent family history. Objective Medications: Scheduled Meds:carvediloL, 25 mg, oral, BID with meals (bkfst, dinner) hydrALAZINE, 25 mg, oral, TID Continuous Infusions:clevidipine, 0-32 mg/hr esmolol, 0-300 mcg/kg/min, Last Rate: 50 mcg/kg/min (06/13/23 3512) niCARdipine, 0-2.5 mcg/kg/min, Last Rate: Stopped (06/13/23 1735) Vitals: Temp: [37.1 ??C (98.8 ??F)] 37.1 ??C (98.8 ??F) Pulse: [79-93] 87 BP: (146-181)/(86-111) 146/86 Resp: [9-18] 10 SpO2: [94 %-100 %] 99 % Arterial Line BP: (166-181)/(67-76) 166/67 Fluid balance: No intake/output data recorded. No intake or output data in the 24 hours ending 06/13/23 1736 Hemodynamic parameters: PAP: -- CVP: -- PCWP: -- CO: -- CI: -- SVO2: -- Pacemaker Overdrive Pacing: -- Cardiac Rhythm: -- Pacer Mode: -- Physical exam: Neuro: Alert, oriented, able to follow simple commands, PERRL 3mm, CAM (-) Cardiovascular: RRR, periphery warm with palpable pulses, no significant edema Pulmonary: Breath sounds clear to auscultation bilaterally, diminished bases, normal respiratory rate and effort GI: Abdomen, soft, non-distended, bowel sounds active : voids Skin: Warm, dry, left fem site ecchymotic and tender to palpation C/D/I Laboratory data: Recent Labs Lab Units 06/13/23 1307 06/11/23 0321 06/10/23 0524 WBC K/cumm 10.5* 8.7 9.5 HEMOGLOBIN g/dL 10.7* 10.2* 10.7* HEMATOCRIT % 34.2* 32.6* 32.8* PLATELETS K/cumm 462* 334 333 Recent Labs Lab Units 06/13/23 1320 06/13/23 1307 06/11/23 0321 06/10/23 0524 SODIUM mmol/L -- 139 143 141 POTASSIUM PLASMA mmol/L -- 4.1 3.8 3.5 CHLORIDE mmol/L -- 105 107 104 CO2 mmol/L -- 23 23 26 BUN SERUM mg/dL -- 16 12 11 CREATININE mg/dL -- 0.81 0.80 0.77* CREATININE POC mg/dL 0.7 -- -- -- CALCIUM mg/dL -- 9.6 9.1 9.2 Recent Labs Lab Units 06/13/23 1307 PROTIME (PT) sec 14.9* INR 1.31* APTT sec 40* Radiology/Diagnostic/Micro Review Impression and Plan: Active problems/Diagnoses: Plans: Acute on chronic pain Chronic back pain that has worsened over last few days, pain at left femoral site - schedule tylenol - PRN Oxycodone, dilaudid Hypertension Discharged 06/09 with blood pressure regimen controlled with permissive hypertension SBP ~140. Patient reports taking medication as directed but SBP was 180 at home. Presents to ED with SBP 200 and increased groin and back pain. 06/13 CT : No change in aneurysmal. No stent migration. No increased in the false lumen perfusion. A new pseudoaneurysm at left fem artery access site. No discitis-osteomyelitis or well-defined paravertebral abscess of spine - SBP goal 120-140 - clevidipine - coreg 25 BID - hydral 100 TID - vascular primary Anemia following vascular surgery from previous admission. No signs of active bleeding. - No current indication for transfusion, consider if patient becomes hemodynamically unstable with increased pressor requirements or Hgb < 7 and symptomatic - CBC daily Leukocytosis Afebrile. Reports chills, fever and night sweats - 06/13 blood culture pending - 06/13 cefe, vanc - bartonella, Qfever, histoplasma antibody& antigen ICU standards of care: Restraints: none DVT prophylaxis: SCDs, Lovenox PUD prophylaxis: N/A Nutrition: Regular diet Bowel regimen: Docusate/Senna/Miralax Physical therapy/Activity: OOB/PT in am Goals of care: Full code Critical Care Performed by: Mateo Diaz NP Authorized by: Mateo Diaz NP CRITICAL CARE: Team: 83 CTICU Shift: AM Level of Billing: Critical Care My time spent with this patient was 105 minutes: Critical Provider Statement: I have seen and examined the patient on this day of service. I have reviewed and confirmed the history, physical exam, laboratory and radiologic data as documented in thesigned ICU note. I have reviewed and discussed my treatment plan with the ICU team and other medical/service consultant staff, making frequent assessments and decisions [...] or life-threatening deterioration of the following conditions: I spent time reviewing and interpreting data from bedside monitors, laboratory results, and imaging, I spent time discussing the management of this critically ill patient with consultants and the medical staff and I spent time documenting in the medical record Cosigned by Mehul Brooks MD at 06/15/2023 8:26 AM COMPANY LAUNDRY WORKER ANY LAUNDRY WORKER ANY LAUNDRY WORKER documented in this encounter Procedure Notes * Sreekanth Armstrong NP - 06/14/2023 1:52 PM CSTAssociated Order(s): Arterial Line Insertion Post-Procedure Diagnose(s): Infrarenal abdominal aortic aneurysm, without rupture (HCC) Arterial Line Insertion Date/Time: 06/14/2023 1:52 PM Performed by: Sreeknath Armstrong NP Authorized by: Sreekanth Armstrong NP [place] Protocol: RN Notified of Procedure: yes Patient's stated name/ matches armband: Yes Allergies confirmed: yes Consent form signed, dated, timed; matches correct patient, intended procedure and site: Yes and noconsent form due to emergent status Imaging: Pertinent imaging reviewed, correctly oriented and match to patient identifiers Lab/Diag test results: Pertinent lab/diag tests reviewed and match to patient identifiers Supplies, devices and special equipment are available: n/a Site/side marked: n/a Immediately prior to the procedure a time out was called: a verbal verification by the procedure participants confirmed correct patient identity, correct site/side marked and visible (if applicable); agreement on procedure to be done; and correct patient positioning Indications: multiple ABGs and hemodynamic monitoring Location: Right radial Anesthesia: Local infiltration Local anesthetic: Lidocaine 1% Patient skin preparation: chlorhexidine Ultrasound guidance: Used for needle insertion, landmarks identified and sterile probe cover used Patient preparation: Cap, full body drape, gloves, gown, handwashing, mask, towels and sterile probe cover Leo's test normal?: Yes Catheter gauge: 20 Single percutaneous needle puncture: Yes Seldinger technique used: Yes Number of attempts: 1 Placement confirmed with arterial waveform: Yes Post-procedure: Line sutured and dressing applied Post-procedure CMS: Normal Complications: no complications noted during insertion I personally performed the above procedure which is separate from my critical care time. Sreekanth Armstrong NP Post Procedure Debrief: All guidewires, needles, sponges or other items are accounted for: yes Any special post procedure monitoring, testing or other considerations: n/a All specimens identified, labeled and matched to patient identification: n/a Responsible green party for transporting specimen(s) to lab determined: n/a ANY LAUNDRY WORKER documented in this encounter Consult Notes * Anil Sanchez MD - 06/15/2023 2:08 PM CSTAssociated Order(s): CONSULT TO GENERAL INFECTIOUS DISEASE Infectious Disease Initial Consult Note Infectious Disease Team: General 1 Contact Information: Please see EPIC Treatment Team listing for up-to-date contact information. Requesting Physician: Faustino Herrera MD Reason for Consult: Diagnostic and treatment recommendations, as well as assistance with follow up care. Subjective Chief Complaint: Concern for endovascular graft infection vs. Spinal infection HPI: The patient is a 33 y.o. male with PMHx HTN, chronic abdominal pain, mood disorder and complex course after type B aortic dissection. Initial TAA dissection s/p TEVAR with TBE graft 05/02/23, but represented with new entry tear distal to prior graft and underwent repeat TEVAR with dissection stent pl acement. He had a lumbar drain in place during that hospitalization. He presented again to the ED on 06/13 with severe back pain, hypertension, subjective fever, chills, and night sweats at home. Backpain has been present since initial surgery and is not significantly worse. Fever, chills, and night sweats present for three days prior to admission. Reports mild cough at home. He reports normal motor and sensory function in his lower extremities. Denies an bowel or bladder incontinence. 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 Lives at home with significant other, 6 children, and two indoor dogs. [place], but denies direct exposure. No exposure to cats. Past Medical History: No date: Hypertension No date: Kidney stones Past Surgical History: No date: ABDOMINAL AORTIC ANEURYSM REPAIR HOME MEDICATIONS : acetaminophen 500 mg capsule albuterol HFA (PROVENTIL HFA,VENTOLIN HFA,PROAIR HFA) 90 mcg/actuation inhaler amLODIPine (NORVASC) 5 mg tablet aspirin 81 mg chewable tablet carvediloL (COREG) 25 mg tablet gabapentin (NEURONTIN) 300 mg capsule hydrALAZINE (APRESOLINE) 25 mg tablet lidocaine (ASPERCREME) 4 % adhesive patch,medicated methocarbamoL (ROBAXIN) 750 mg tablet ondansetron ODT (ZOFRAN-ODT) 4 mg disintegrating tablet oxyCODONE (ROXICODONE) 10 mg tablet polyethylene glycol (MIRALAX) 17 gram/dose bulk powder QUEtiapine (SEROquel) 50 mg tablet senna-docusate (PERICOLACE) 8.6-50 mg tamsulosin (FLOMAX) 0.4 mg extended release capsule Current Facility-Administered Medications Ordered in Epic Medication Dose Route Frequency Provider Last Rate Last Admin acetaminophen (TYLENOL) tablet 1,000 mg 1,000 mg oral Q6H Mateo Campo PROFESSOR OF NURSING 1,000 mg at 06/15/23 1114 amLODIPine (NORVASC) tablet 10 mg 10 mg oral Daily Sreekanth Armstrong NP 10 mg at 06/15/23 0840 Carrier Fluids for Secondary Infusion - 0.9% Sodium Chloride 30 mL intravenous PRN Mateo Diaz PROFESSOR OF NURSING 30 mL at 06/14/23 2153 carvediloL (COREG) tablet 37.5 mg 37.5 mg oral BID with meals (bkfst, dinner) Cristobal Cote MD 37.5 mg at 06/15/23 0840 cefepime (MAXIPIME) 2,000 mg/20 mL in sterile water (premix) 2,000 mg 2,000 mg intravenous Q8H Mateo Campo PROFESSOR OF NURSING 240 mL/hr at 06/15/23 1306 2,000 mg at 06/15/23 1306 clevidipine (CLEVIPREX) 50 mg/100 mL (0.5 mg/mL) (premix) 0-32 mg/hr intravenous Titrated Mateo Diaz PROFESSOR OF NURSING 48 mL/hr at 06/15/23 1320 24 mg/hr at 06/15/23 1320 docusate sodium (COLACE) capsule 100 mg 100 mg oral BID Mateo Diaz, PROFESSOR OF NURSING 100 mg at 06/14/23 212 enoxaparin (LOVENOX) syringe 40 mg 40 mg subcutaneous Daily-2100 Mateo Diaz PROFESSOR OF NURSING 40 mg at 06/14/232121 [Held by Provider] esmolol in 0.9% sodium chloride (BREVIBLOC) 2,500 mg/250 mL (10 mg/mL) infusion (premix) 0-300 mcg/kg/min intravenous Titrated Sreekanth Armstrong NP Stopped at 06/15/23 0952 gabapentin (NEURONTIN) capsule 300 mg 300 mg oral TID Sreekanth Armstrong NP 300 mg at 06/15/23 0840 hydrALAZINE (APRESOLINE) tablet 100 mg 100 mg oral TID Mateo Diaz PROFESSOR OF NURSING 100 mg at 06/15/23 0841 HYDROmorphone (DILAUDID) injection 1 mg 1 mg intravenous Q2H PRN Dalton Baker MD 1 mg at 06/15/23 1317 labetaloL (NORMODYNE,TRANDATE) injection 20 mg 20 mg intravenous Q4H PRN Akash Spears MD 20 mg at 06/15/23 1020 Lactated Ringer's (LR) infusion 10 mL/hr intravenous Continuous Mateo Diaz PROFESSOR OF NURSING Stopped at 06/13/23 211 methocarbamoL (ROBAXIN) tablet 750 mg 750 mg oral QID Hortensia Guy MD 750 mg at 06/15/23 1114 ondansetron (ZOFRAN) injection 4 mg 4 mg intravenous Q6H PRN Mateo Diaz PROFESSOR OF NURSING 4 mg at 06/15/23 0841 oxyCODONE (ROXICODONE) tablet 10 mg 10 mg oral Q4H PRN Cristobal Cote MD 10 mg at 06/15/23 1112 polyethylene glycol (MIRALAX) packet 17 g 17 g oral Daily Mateo Diaz, PROFESSOR OF NURSING QUEtiapine (SEROquel) tablet 50 mg 50 mg oral Nightly Sreekanth Armstrong NP senna (SENOKOT) tablet 1 tablet 1 tablet oral BID Mateo Diaz PROFESSOR OF NURSING 1 tablet at 06/14/23 2121 sodium chloride 0.9% solution 3-12 mL/hr intra-catheter Continuous Mateo Diaz NP 3 mL/hr at 06/15/23 1300 3 mL/hr at 06/15/23 1300 vancomycin 1500 mg/515 mL in sodium chloride 0.9% (premix) 1,500 mg 15 mg/kg intravenous Q8H Mateo Diaz, PROFESSOR OF NURSING 1,500 mg at 06/15/23 0904 No current [facility]-ordered outpatient medications on file. Anti-infectives (From admission, onward) Start Dose/Rate Route Frequency Ordered Stop 06/13/23 1830 cefepime (MAXIPIME) 2,000 mg/20 mL in sterile water (premix) 2,000 mg 2,000 mg 240 mL/hr over 5 Minutes intravenous Every 8 hours scheduled 06/13/23 1746 06/13/23 1830 vancomycin 1500 mg/515 mL in sodium chloride 0.9% (premix) 1,500 mg 15 mg/kg ?? 97.5 kg over 90 Minutes intravenous Every 8 hours 06/13/23 1752 Active Lines/Ports/Devices: Peripheral IV 06/13/23 20 G Right Antecubital (Active) Number of days: 2 Peripheral IV 06/13/23 20 G Left Antecubital (Active) Number of days: 2 Peripheral IV 06/14/23 18 G Anterior;Left;Upper Arm (Active) Number of days: 1 Arterial Line 06/14/23 Right Radial (Active) Number of days: 1 Patient Allergies: Allergies Allergen Reactions Amoxicillin Hives Social History Social History Narrative Not on file reports that he has never smoked. He has never used smokeless tobacco. He reports that he does not currently use drugs. No alcohol history on file. Family history reviewed and non-contributory History reviewed. No pertinent family history. Review of Systems: Review of Systems Constitutional: Positive for chills, diaphoresis, fatigue and fever. HENT: Negative for congestion and dental problem. Eyes: Negative. Respiratory: Positive for cough. Negative for choking, chest tightness, shortness of breath, wheezing and stridor. Cardiovascular: Negative for chest pain and leg swelling. Gastrointestinal: Positive for abdominal pain and nausea. Negative for abdominal distention, anal bleeding, blood in stool, constipation, diarrhea and vomiting. Endocrine: Negative. Genitourinary: Negative. Musculoskeletal: Positive for back pain. Negative for gait problem and myalgias. Skin: Negative for rash and wound. Allergic/Immunologic: Negative. Neurological: Negative for dizziness, weakness and numbness. Hematological: Negative. Psychiatric/Behavioral: Negative. Objective Vitals: 24hr Min/Max: Temp Min: 36.4 ??C (97.5 ??F) Max: 37.2 ??C (98.9 ??F) Pulse Min: 68 Max: 95 Resp Min: 6 Max: 19 SpO2 Min: 90 % Max: 100 % Most Recent : Vitals: 06/15/23 1300 BP: Pulse: 94 Resp: 12 Temp: SpO2: 97% Vitals: 06/15/23 1000 06/15/23 1100 06/15/23 1200 06/15/23 1300 BP: BP Location: Patient Position: Pulse: 77 88 95 94 Resp: 17 18 12 12 Temp: 37.2 ??C (98.9 ??F) TempSrc: Axillary SpO2: 95% 96% 97% 97% Weight: Height: I/O last 2 completed shifts: In: 5184.3 [I.V.:3529.3; IV Piggyback:1655] Out: 2825 [Urine:2825] Physical Exam: Physical Exam Vitals and nursing note reviewed. Constitutional: General: He is not in acute distress. Appearance: He is diaphoretic. He is not toxic-appearing. Comments: Uncomfortable appearing. HENT: Head: Normocephalic and atraumatic. Nose: Nose normal. Mouth/Throat: Mouth: Mucous membranes are moist. Pharynx: Oropharynx is clear. Eyes: Extraocular Movements: Extraocular movements intact. Conjunctiva/sclera: Conjunctivae normal. Pupils: Pupils are equal, round, and reactive to light. Cardiovascular: Rate and Rhythm: Normal rate and regular rhythm. Pulses: Normal pulses. Pulmonary: Effort: Pulmonary effort is normal. No respiratory distress. Breath sounds: No wheezing or rales. Abdominal: General: Abdomen is flat. There is no distension. Palpations: Abdomen is soft. Tenderness: There is no abdominal tenderness. There is no guarding or rebound. Musculoskeletal: General: No tenderness or signs of injury. Right lower leg: No edema. Left lower leg: No edema. Comments: There is midline tenderness in the lower thoracic and lumbar spine, significantly worse in the lumbar region. No upper thoracic or cervical tenderness. Overlying abrasion present that appears well healing. No erythema, warmth, swelling. Skin: General: Skin is warm. Coloration: Skin is not jaundiced. Findings: No bruising. Comments: There is a prior vascular access site in the left groin with skin glue in place. No overlying erythema, warmth. There is adjacent bruising and tenderness. No palpable tenderness. Neurological: General: No focal deficit present. Mental Status: He is alert and oriented to person, place, and time. Mental status is at baseline. Sensory: No sensory deficit. Motor: No weakness. Psychiatric: Mood and Affect: Mood normal. Behavior: Behavior normal. Lab/Radiology/Diagnostic Review: I reviewed the following laboratory and imaging result(s). Micro: Lab Results Component Value Date MICROBIOLOGY Preliminary Report: No growth to date. 06/13/2023 MICROBIOLOGY Preliminary Report: No growth to date. 06/13/2023 MICROBIOLOGY Final Report: No growth 05/10/2023 MICROBIOLOGY Final Report: No growth 05/10/2023 MICROBIOLOGY (.) 05/05/2023 Final Report: Insignificant growth based on current clinical standards. MICROBIOLOGY Final Report: No growth 05/04/2023 MICROBIOLOGY Final Report: No growth 05/04/2023 Urinalysis: Resulted in the Past 12 Months 06/13/23 1407 COLORU Yellow CLARITYU Clear SPECGRAVU >1.042* PHURINE 6.0 PROTURQL 1+* GLUCOSEUR Negative KETONESU Negative BLOODUR Trace* NITRITEU Negative LEUKESTUR Negative Hematology/Chemistry: CBC: Lab Results Component Value Date WBC 11.7 (H) 06/14/2023 HGB 9.9 (L) 06/14/2023 HCT 30.5 (L) 06/14/2023 LABPLAT 513 (H) 06/14/2023 NEUTOPHILPCT 70.9 06/13/2023 LYMPHOPCT 15.9 06/13/2023 MONOPCT 10.5 06/13/2023 EOSPCT 0.7 06/13/2023 CMP: Lab Results Component Value Date SODIUM 139 06/14/2023 POTASSIUM 3.9 06/14/2023 CHLORIDE 106 06/14/2023 CO2 21 (L) 06/14/2023 ANIONGAP 12 06/14/2023 GLUCOSE 127 06/14/2023 BUNSER 10 06/14/2023 CREATININE 0.86 06/14/2023 CALCIUM 8.9 06/14/2023 ALBUMIN 3.5 06/14/2023 ALKPHOS 99 06/14/2023 ALT 19 06/14/2023 AST 18 06/14/2023 BILITOT 0.4 06/14/2023 Creatinine:Estimated Creatinine Clearance: 124.5 mL/min (by Cockcroft-Gault based on SCr of 0.86 mg/dL). Resulted in the Past 12 Months 06/14/23203006/14/23 0014 06/13/23 1320 CREATININE 0.86 0.90 0.7 Inflammatory Markers: Resulted in the Past 12 Months 06/13/23 1307 SEDRATE 92* CRP 155.8* Recent Labs Lab Units 06/14/23 1751 VANCOMYCIN TR mcg/mL 15.5 Screening Results RPR:No results found for: LABRPR GC: No results found for: CTRACHOMATIS , NGONORRHOEAE Hepatitis Serologies: No results found for: HEPAIGG , HEPAIGM , HEPBSAG , HEPBSAB , HEPBCAB , HEPCAB Virologic Testing: HIV Screen: Lab Results Component Value Date [id number] Nonreactive 06/14/2023 CD4:No results found for: CD4ABS , CD4PCT Common Virologic Results: No results found for: YBI1AMV , CD4ABS , CD4PCT , NUCLEOSRT , NONNUCRTMUT , PROTEASEMUT , INTEGRASEMUT , PPD , TOXOIGG Diagnostics: EKG: Lab Results Component Value Date VR 119 05/10/2023 AR 119 05/10/2023 PRIMSEC 138 05/10/2023 QRSIMSEC 88 05/10/2023 QTIMSEC 322 05/10/2023 QT 452 05/10/2023 PA 39 05/10/2023 RA -5 05/10/2023 TA 42 05/10/2023 DIAG 05/10/2023 Poor data quality, interpretation may be adversely affected Sinus tachycardia Minimal voltage criteria for LVH, may be normal variant ( R in aVL ) Septal infarct , age undetermined Abnormal ECG When compared with ECG of 09-MAY-2023 09:22, QRS axis Shifted right Septal infarct is now Present ST now depressed in Lateral leads T wave inversion no longer evident in Lateral leads Confirmed by ADAM VALVERDE M.D ([id number]) on 2023 11:47:49 AM Echo:Results for orders placed during the hospital encounter of 05/01/23 Transthoracic Echo (TTE) With Bubble Study Narrative Patient name: Eriberto Chau Date of test: 05/05/2023 Type of test: Limited TTE [facility] #: [id number] Date of : 1990 (M) 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 [employer] Fighter: Ellen Ely RDCS Referring Physician: FAUSTINO HERRREA MD Contrast Agent: Agitated Saline Bubble Study Performed Contrast Administered by: Oralia FRASER Supervised/Interpreted by: Trupti Ulloa MD Diagnosis: Location: [facility] Reason for test: Hypoxia, c/f cardiac shunt MV Structure: , MV Motion: , Mitral Annulus: AV Structure: and is , AV Motion: Aotic root: , TM: , PV: Valvular Vegetations: , Mass/Thrombi: RA: Measurements: M-Mode Normal Aotic Root: <3.8 LA: <4.0 RV: <2.8 LV(ED): <5.7 LV(ES): Variable 2D Linear Normal Aotic Root: <4.0 Ao Indexed: <2.0 LA: <4.0 RV: <4.2 LV(ED): <5.9 LV(ES): <4.0 2D Vol. Normal Indexed Indexed Normal RA: 11-39 LA: 16-34 RV: <12.7 LV(ED): 62-150 <75 LV(ES): 21-61 <32 3D Vol. Indexed Normal LV(ED): <75 LV(ES): <32 LV EF: % (Normal: >=52%) LV Septum: cm (Normal: <1.0 cm) Wall Motion Scoring (1=Normal 2=Hypo 3=Akinetic 4=Dyskin./Aneurysm 0=Not visualized) Parasternal Long [place]:MAS=1 BAS=1 MIL=1 GARO=1 Parasternal Short [place]:MAS=1 MIS=1 AL=1 MIL=1 MAL=1 MA=1 Apical 4 Chambers:=1 MIS=1 BIS=1 BAL=1 MAL=1 AL=1 AC=1 Apical 2 Chambers:AI=1 AL=1 BI=1 BA=1 MA=1 AA=1 AC=1 LV Global Longitudinal Strain: RV Global Longitudinal Strain: LV Function: MIld-moderately decreased systolic function. RV Function: NOT WELL SEEN Septal Motion: Pericardial Effusion: none seen Atrial Septum: DOPPLER/COLOR FLOW DOPPLER RESULTS: Diastolic Function: Tricuspid Valve: Pulmonic Valve: AV Regurgitation: AV Stenosis: AV Area: cm2 AV Pressure Gradient (mmHg): Mean: 0, Peak:0 MV Regurgitation: MV Stenosis: MV Area: cm2 MV Pressure Gradient (mmHg): Mean: 0 MV ERO: cm Regurg. Vol.: ml/beat Regurg. Frac.: % PA Pressure: mmHg DOPPLER/COLOR FOLOW DOPPLER COMMENTS: CONTRAST: Agitated Saline Bubble Study Performed SUMMARY: Limted TTE for shunt eval. LV systolic function appears mildly-moderately decreased overall. Saline contrast study positive for right to left shunting only with Valsalva, most consistent with PFO. Confirmed on 05/05/2023 - 17:06:47 by Trupti Ulloa MD By signing this report, the attending supervisor hospitality house certifies that he or she has personally supervised and interpreted the echocardiogram and has reviewed and or edited and agrees with the written comments contained within the report. Imaging: MRI Thoracic Spine WO Contrast Result Date: 06/14/2023 1. Only sagittal T2 weighted images were obtained. 2. No acute abnormality of the thoracic spine with normal appearance of intervertebral disks and endplates without evidence of discitis/osteomyelitis. Electronically signed by: Gus Su MD MRI Thoracic Spine WO Contrast Result Date: 06/14/2023 1. Only sagittal T2 weighted images were obtained. 2. No acute abnormality of the thoracic spine with normal appearance of intervertebral disks and endplates without evidence of discitis/osteomyelitis. Electronically signed by: Gus Su MD Assessment/Plan No new Assessment & Plan notes have been filed under this hospital service since the last note was generated. 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 He recently had a lumbar drain in place and has significant back pain and midline tenderness. Currently afebrile with mild leukocytosis. Lower concern for graft infection as he does not meet MAGIC workgroup criteria, but will follow blood cultures and clinical appearance. An attempt was made at getting a spinal MRI but pain prevented completion. Midline tenderness is concerning for spinal infectious process given his recent procedure and drain. - Ok to continue current vancomycin and cefepime while awaiting culture data and further imaging - Current antibiotics provide NURSERY HELPER penetration - Please obtain complete spine MRI. If he cannot tolerate the entire MRI, lumbar imaging would be the most valuable. Anil Sanchez MD Critical Care Fellow Today, I am treating the patient for concern for graft infection and/or spinal infection which can cause neurologic or vascular compromise, systemic infection, in the short-term future in the absence of appropriate treatment, as described in the note., Discussed management of the above with ICU team., Reviewed notes by ICU team, vascular surgery, CT surgery, ED to determine appropriate planof care as in the note., and Estimated Creatinine Clearance: 124.5 mL/min (by Cockcroft-Gault basedon SCr of 0.86 mg/dL). - reviewed; antibiotics recommended above are dosed accordingly. Cosigned by Cat Ramirez MD PhD at 06/15/2023 5:13 PM COMPANY LAUNDRY WORKER ANY LAUNDRY WORKER ANY LAUNDRY WORKER Associated attestation - Cat Ramirez MD PhD - 06/15/2023 5:13 PM COMPANY LAUNDRY WORKER I have seen and examined the patient on 06/15/23. I agree with the findings and plan of care as documented in the resident's/fellow's note. He has significant low back pain localized to spine. Lumbarspine imaging needed at minimum. Will follow up on cultures and imaging. * Marlin Garcia MD - 06/14/2023 11:38 AM CSTAssociated Order(s): IP CONSULT TO CARDIAC SURGERY Cardiothoracic Surgery Consult Referring Physician/Service: Dr. Herrera/Vascular Consult Attending Staffing Case: Dr. Vergara Reason for consult: Evaluation for open thoracoabdominal aneurysm repair Patient is a 33 y.o. male with chief complaint of Type B s/p TEVARx2 with endoleak . 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 Herrera and TEVAR (GORE c tag, Cook dissection stent) 06/05/[address] Samuel for an entry tear distal to prior stent with compromised true lumen. He presented 06/13/22 to the ED with hypertension, lower back pain, left groin pain, fevers and chills. He has had a cough productive of phlegm, no hematemesis, no chest pain, no abdominal pain. Patient underwent CTA which was concerning for perfusion of the false lumen from diaphragmatic hiatus to SMA takeoff with aneurysmal dilatation. Cardiac surgery consulted for evaluation of thoracoabdominal aneurysm repair. Past Medical History: Diagnosis Date Hypertension Kidney stones Past Surgical History: Procedure Laterality Date ABDOMINAL AORTIC ANEURYSM REPAIR HOME MEDICATIONS : acetaminophen 500 mg capsule albuterol HFA (PROVENTIL HFA,VENTOLIN HFA,PROAIR HFA) 90 mcg/actuation inhaler amLODIPine (NORVASC) 5 mg tablet aspirin 81 mg chewable tablet carvediloL (COREG) 25 mg tablet gabapentin (NEURONTIN) 300 mg capsule hydrALAZINE (APRESOLINE) 25 mg tablet lidocaine (ASPERCREME) 4 % adhesive patch,medicated methocarbamoL (ROBAXIN) 750 mg tablet ondansetron ODT (ZOFRAN-ODT) 4 mg disintegrating tablet oxyCODONE (ROXICODONE) 10 mg tablet polyethylene glycol (MIRALAX) 17 gram/dose bulk powder QUEtiapine (SEROquel) 50 mg tablet senna-docusate (PERICOLACE) 8.6-50 mg tamsulosin (FLOMAX) 0.4 mg extended release capsule Current Facility-Administered Medications: acetaminophen (TYLENOL) tablet 1,000 mg, 1,000 mg, oral, Q6H SUSAN, Mateo Diaz, PROFESSOR OF NURSING, 1,000 mg at06/14/23 110 Carrier Fluids for Secondary Infusion - 0.9% Sodium Chloride, 30 mL, intravenous, PRN, Mateo Diaz, TREE carvediloL (COREG) tablet 37.5 mg, 37.5 mg, oral, BID with meals (bkfst, dinner), Cristobal Cote MD cefepime (MAXIPIME) 2,000 mg/20 mL in sterile water (premix) 2,000 mg, 2,000 mg, intravenous, Q8H SUSAN, Mateo Diaz, TREE, Last Rate: 240 mL/hr at 06/14/23 1100, Rate Verify at 06/14/23 1100 clevidipine (CLEVIPREX) 50 mg/100 mL (0.5 mg/mL) (premix), 0-32 mg/hr, intravenous, Titrated, Mateo Diaz NP, Last Rate: 6 mL/hr at 06/14/23 1100, 3 mg/hr at 06/14/23 1100 docusate sodium (COLACE) capsule 100 mg, 100 mg, oral, BID, 100 mg at 06/13/232038 OR docusate(COLACE) 10 mg/mL oral liquid 100 mg, 100 mg, feeding tube, BID, Mateo Diaz, TREE enoxaparin (LOVENOX) syringe 40 mg, 40 mg, subcutaneous, Daily-2100, Mateo Diaz NP, 40 mg at06/13/232038 esmolol in 0.9% sodium chloride (BREVIBLOC) 2,500 mg/250 mL (10 mg/mL) infusion (premix), 0-300 mcg/kg/min, intravenous, Titrated, Jae Toledo MD, Last Rate: 58.5 mL/hr at 06/14/23 1100, 100 mcg/kg/min at 06/14/23 1100 hydrALAZINE (APRESOLINE) tablet 100 mg, 100 mg, oral, TID, Mateo Diaz, TREE, 100 mg at 829 HYDROmorphone (DILAUDID) injection 1 mg, 1 mg, intravenous, Q2H PRN, Dalton Baker MD, 1 mg at 06/14/23 100 labetaloL (NORMODYNE,TRANDATE) injection 20 mg, 20 mg, intravenous, Q4H PRN, Akash Spears MD Lactated Ringer's (LR) infusion, 10 mL/hr, intravenous, Continuous, Mateo Diaz NP, Stopped at 06/13/232118 methocarbamoL (ROBAXIN) tablet 750 mg, 750 mg, oral, QID, Hortensia Guy MD, 750 mg at 06/14/23 1109 ondansetron (ZOFRAN) injection 4 mg, 4 mg, intravenous, Q6H PRN, Mateo Diaz NP, 4 mg at 06/14/23 0756 oxyCODONE (ROXICODONE) tablet 10 mg, 10 mg, oral, Q4H PRN, Cristobal Cote MD polyethylene glycol (MIRALAX) packet 17 g, 17 g, oral, Daily, Mateo Diaz, TREE senna (SENOKOT) tablet 1 tablet, 1 tablet, oral, BID, 1 tablet at 06/13/232038 OR senna 1.76 mg/mL syrup 8.8 mg, 8.8 mg, feeding tube, BID, Mateo Diaz, TREE sodium chloride 0.9% solution, 3-12 mL/hr, intra-catheter, Continuous, Mateo Diaz NP, Last Rate: 3 mL/hr at 06/14/23 1100, 3 mL/hr at 06/14/23 1100 vancomycin 1500 mg/515 mL in sodium chloride 0.9% (premix) 1,500 mg, 15 mg/kg, intravenous, Q8H, Mateo Diaz NP, 1,500 mg at 06/14/23 0951 Allergies Allergen Reactions Amoxicillin Hives Social History Tobacco Use Smoking status: Never Smokeless tobacco: Never Substance and Sexual Activity Drug use: Not Currently Sexual activity: None Alcohol Use: Not on file History reviewed. No pertinent family history. Review of Systems: Review of Systems Constitutional: Positive for chills and fever. HENT: Negative. Eyes: Negative. Respiratory: Positive for cough. Negative for shortness of breath. Cardiovascular: Negative for chest pain and palpitations. Gastrointestinal: Negative. Endocrine: Negative. Genitourinary: Negative. Musculoskeletal: Positive for back pain. Skin: Negative. Allergic/Immunologic: Negative. Neurological: Negative. Hematological: Negative. Psychiatric/Behavioral: Negative. Objective Vitals: 24hr Min/Max: Temp Min: 36.3 ??C (97.4 ??F) Max: 37.4 ??C (99.3 ??F) Pulse Min: 66 Max: 93 BP Min: 107/57 Max: 181/111 Resp Min: 0 Max: 20 SpO2 Min: 93 % Max: 100 % Most Recent : Vitals: 06/14/23 1100 BP: 121/56 Pulse: 70 Resp: 13 Temp: 36.3 ??C (97.4 ??F) SpO2: 98% I/O last 2 completed shifts: In: 2501.4 [I.V.:1946.4; IV Piggyback:555] Out: 775 [Urine:775] I/O this shift: In: 1818.4 [I.V.:788.4; IV Piggyback:1030] Out: 200 [Urine:200] Physical Exam: Physical Exam Constitutional: Appearance: Normal appearance. He is not ill-appearing. Comments: Appears nervous HENT: Head: Normocephalic and atraumatic. Right Ear: External ear normal. Left Ear: External ear normal. Nose: Nose normal. Mouth/Throat: Mouth: Mucous membranes are moist. Eyes: Extraocular Movements: Extraocular movements intact. Pupils: Pupils are equal, round, and reactive to light. Cardiovascular: Rate and Rhythm: Normal rate and regular rhythm. Pulses: Normal pulses. Comments: BL radial, DP pulses palpable Extremities WWP Pulmonary: Effort: Pulmonary effort is normal. Breath sounds: Normal breath sounds. Abdominal: General: There is no distension. Palpations: Abdomen is soft. Tenderness: There is no abdominal tenderness. Musculoskeletal: General: Normal range of motion. Cervical back: Normal range of motion. Right lower leg: No edema. Left lower leg: No edema. Skin: General: Skin is warm. Neurological: General: No focal deficit present. Mental Status: He is alert and oriented to person, place, and time. Psychiatric: Mood and Affect: Mood normal. Behavior: Behavior normal. Lab/Radiology/Diagnostic Review: Laboratory review: Lab results in the last 24 hours: Recent Results (from the past 24 hour(s)) Blood culture Blood Peripheral Collection Time: 06/13/23 1:07 PM Specimen: Peripheral; Blood Result Value Ref Range Report Preliminary Report: No growth to date. Blood culture Blood Peripheral Collection Time: 06/13/23 1:07 PM Specimen: Peripheral; Blood Result Value Ref Range Report Preliminary Report: No growth to date. Troponin I high-sensitivity series (baseline, 2hr, 4hr, 6hr) Collection Time: 06/13/23 1:07 PM Result Value Ref Range Trop I hs 4 <=35 ng/L aPTT Collection Time: 06/13/23 1:07 PM Result Value Ref Range aPTT 40 (H) 28 - 38 sec Protime-INR Collection Time: 06/13/23 1:07 PM Result Value Ref Range PT 14.9 (H) 10.3 - 13.7 sec INR 1.31 (H) 0.90 - 1.20 Comprehensive metabolic panel Collection Time: 06/13/23 1:07 PM Result Value Ref Range Sodium 139 135 - 145 mmol/L Potassium, pl 4.1 3.3 - 4.9 mmol/L Chloride 105 97 - 110 mmol/L CO2 23 22 - 32 mmol/L Anion gap 11 2 - 15 mmol/L BUN 16 6 - 25 mg/dL Creatinine 0.81 0.80 - 1.30 mg/dL Glucose 109 70 - 199 mg/dL Calcium 9.6 8.5 - 10.3 mg/dL Bilirubin, total 0.3 0.1 - 1.2 mg/dL Protein, pl 9.0 (H) 6.5 - 8.5 g/dL Albumin 3.8 3.5 - 5.0 g/dL Alk phos 118 40 - 130 Units/L ALT 29 7 - 55 Units/L AST 23 10 - 50 Units/L CBC with auto differential Collection Time: 06/13/23 1:07 PM Result Value Ref Range WBC 10.5 (H) 3.8 - 9.9 K/cumm Hgb 10.7 (L) 13.0 - 17.5 g/dL Hct 34.2 (L) 38.9 - 50.3 % Plt 462 (H) 150 - 400 K/cumm MPV 9.2 9.1 - 12.3 fL RBC 3.78 (L) 4.30 - 5.80 M/cumm MCV 90.5 81.3 - 96.4 fL MCH 28.3 27.1 - 33.3 pg MCHC 31.3 (L) 32.3 - 35.7 g/dL RDW CV 13.7 11.1 - 14.9 % RDW SD 45.7 35.7 - 48.1 fL NRBC abs 0.00 0.00 - 0.01 K/cumm Cortisol Collection Time: 06/13/23 1:07 PM Result Value Ref Range Cortisol 15.3 4.8 - 19.5 mcg/dL Erythrocyte sedimentation rate Collection Time: 06/13/23 1:07 PM Result Value Ref Range Erythrocyte sedimentation rate 92 (H) 1 - 15 mm/hr CRP (acute phase) Collection Time: 06/13/23 1:07 PM Result Value Ref Range CRP 155.8 (H) <=10.0 mg/L Differential, auto Collection Time: 06/13/23 1:07 PM Result Value Ref Range Neutrophil abs 7.4 (H) 1.5 - 6.5 K/cumm Imm gran abs 0.2 (H) 0.0 - 0.1 K/cumm Lymphocyte abs 1.7 0.8 - 3.3 K/cumm Monocyte abs 1.1 (H) 0.2 - 0.8 K/cumm Eosinophil abs 0.1 0.0 - 0.5 K/cumm Basophil abs 0.1 0.0 - 0.1 K/cumm Neutrophil pct 70.9 % Imm gran pct 1.5 % Lymphocyte pct 15.9 % Monocyte pct 10.5 % Eosinophil pct 0.7 % Basophil pct 0.5 % eGFR Collection Time: 06/13/23 1:07 PM Result Value Ref Range eGFR >90 >=60 mL/min/1.73 m2 POCT creatinine Collection Time: 06/13/23 1:20 PM Result Value Ref Range Creatinine POC 0.7 0.7 - 1.3 mg/dL Urinalysis reflex to microscopic and culture Urine Collection Time: 06/13/23 2:07 PM Specimen: Urine Result Value Ref Range Color, ur Yellow Yellow Clarity, ur Clear Clear Specific gravity, ur >1.042 (H) 1.003 - 1.030 pH, urine 6.0 Protein, ur ql 1+ (A) Negative Glucose, ur ql Negative Negative Ketones, ur Negative Negative Bilirubin, ur Negative Negative Blood, ur Trace (A) Negative Urobilinogen, ur <2.0 <2.0 mg/dL Nitrite, ur Negative Negative Leukocyte esterase, ur Negative Negative UA reflex comment Reflex to microscopic UA will be performed. Urinalysis, microscopic only Collection Time: 06/13/23 2:07 PM Result Value Ref Range WBC, ur 0-5 0 - 5 /HPF RBC, ur 3-5 (A) 0 - 2 /HPF Epithelial cells, squamous, ur 1-5 0 - 5 /HPF Bacteria, ur 1+ (A) Mucous, ur Present (A) Hyaline casts, ur 6-10 0 - 10 /LPF Culture Reflex Comment Reflex conditions for urine culture (WBC >10) not met. Respiratory pathogen panel Nasopharyngeal Collection Time: 06/13/23 2:35 PM Specimen: Nasopharyngeal Result Value Ref Range Influenza A RNA Not Detected Not Detected Influenza B RNA Not Detected Not Detected RSV RNA Not Detected Not Detected COVID-19 RNA Not Detected Not Detected Coronavirus 229E RNA Not Detected Not Detected Coronavirus HKU1 RNA Not Detected Not Detected Coronavirus NL63 RNA Not Detected Not Detected Coronavirus OC43 RNA Not Detected Not Detected Adenovirus DNA Not Detected Not Detected Metapneumovirus RNA Not Detected Not Detected Rhinovirus/Enterovirus RNA Not Detected Not Detected Parainfluenza 1 RNA Not Detected Not Detected Parainfluenza 2 RNA Not Detected Not Detected Parainfluenza 3 RNA Not Detected Not Detected Parainfluenza 4 RNA Not Detected Not Detected B. pertussis DNA Not Detected Not Detected B. parapertussis DNA Not Detected Not Detected C. pneumoniae DNA Not Detected Not Detected M. pneumoniae DNA Not Detected Not Detected Troponin I high-sensitivity 2-hour Collection Time: 06/13/23 2:42 PM Result Value Ref Range Trop I hs 5 <=35 ng/L Trop I hs delta 1 ng/L Trop I hs interp Insignificant Troponin I high-sensitivity 4-hour Collection Time: 06/13/23 4:58 PM Result Value Ref Range Trop I hs 5 <=35 ng/L Trop I hs delta 1 ng/L Trop I hs interp Insignificant Drugs of Abuse Screen, Urine with Reflex Confirmation Collection Time: 06/13/23 4:58 PM Result Value Ref Range Amphetamine, ur Not Detected CutOff 500ng/mL Barbiturates, ur Not Detected CutOff 200ng/mL Benzodiazepines, ur Not Detected CutOff 100ng/mL Cannabinoids, ur Screen Positive, presumptive (A) CutOff 50 ng/mL Cocaine, ur Not Detected CutOff 150ng/mL Fentanyl, Ur Not Detected Cutoff 1 ng/mL Methadone, ur Not Detected CutOff 300ng/mL Opiates, ur Not Detected CutOff 300ng/mL Oxycodone, ur Screen Positive, presumptive (A) CutOff 100ng/mL Phencyclidine, ur Not Detected CutOff 25 ng/mL Urine Creatinine 72 mg/dL Troponin I high-sensitivity 6-hour Collection Time: 06/13/23 6:00 PM Result Value Ref Range Trop I hs 6 <=35 ng/L Trop I hs delta See Comment ng/L Trop I hs pct delta See Comment % Trop I hs interp See Comment Potassium, whole blood Collection Time: 06/13/23 7:11 PM Result Value Ref Range Potassium, bld 3.7 3.3 - 4.9 mmol/L CBC without differential Collection Time: 06/14/23 12:14 AM Result Value Ref Range WBC 9.9 3.8 - 9.9 K/cumm Hgb 9.3 (L) 13.0 - 17.5 g/dL Hct 28.7 (L) 38.9 - 50.3 % Plt 479 (H) 150 - 400 K/cumm MPV 8.9 (L) 9.1 - 12.3 fL RBC 3.25 (L) 4.30 - 5.80 M/cumm MCV 88.3 81.3 - 96.4 fL MCH 28.6 27.1 - 33.3 pg MCHC 32.4 32.3 - 35.7 g/dL RDW CV 13.6 11.1 - 14.9 % RDW SD 44.1 35.7 - 48.1 fL NRBC abs 0.00 0.00 - 0.01 K/cumm Magnesium Collection Time: 06/14/23 12:14 AM Result Value Ref Range Magnesium 2.1 1.4 - 2.5 mg/dL Phosphorus Collection Time: 06/14/23 12:14 AM Result Value Ref Range Phosphorus, pl 3.1 2.3 - 4.5 mg/dL Comprehensive metabolic panel Collection Time: 06/14/23 12:14 AM Result Value Ref Range Sodium 138 135 - 145 mmol/L Potassium, pl 3.9 3.3 - 4.9 mmol/L Chloride 107 97 - 110 mmol/L CO2 20 (L) 22 - 32 mmol/L Anion gap 11 2 - 15 mmol/L BUN 15 6 - 25 mg/dL Creatinine 0.90 0.80 - 1.30 mg/dL Glucose 122 70 - 199 mg/dL Calcium 9.2 8.5 - 10.3 mg/dL Bilirubin, total 0.4 0.1 - 1.2 mg/dL Protein, pl 8.0 6.5 - 8.5 g/dL Albumin 3.5 3.5 - 5.0 g/dL Alk phos 100 40 - 130 Units/L ALT 23 7 - 55 Units/L AST 14 10 - 50 Units/L Lactate, whole blood Collection Time: 06/14/23 12:14 AM Result Value Ref Range Lactate, bld 1.8 0.7 - 2.0 mmol/L eGFR Collection Time: 06/14/23 12:14 AM Result Value Ref Range eGFR >90 >=60 mL/min/1.73 m2 HIV 1/2 Antibody plus p24 Antigen Blood Collection Time: 06/14/23 11:08 AM Specimen: Blood Result Value Ref Range HIV 1/2 ab + p24 ag Nonreactive Nonreactive Echocardiogram review: No recent results to review Lab results in the last 24 hours: Recent Results (from the past 24 hour(s)) Blood culture Blood Peripheral Collection Time: 06/13/23 1:07 PM Specimen: Peripheral; Blood Result Value Ref Range Report Preliminary Report: No growth to date. Blood culture Blood Peripheral Collection Time: 06/13/23 1:07 PM Specimen: Peripheral; Blood Result Value Ref Range Report Preliminary Report: No growth to date. Troponin I high-sensitivity series (baseline, 2hr, 4hr, 6hr) Collection Time: 06/13/23 1:07 PM Result Value Ref Range Trop I hs 4 <=35 ng/L aPTT Collection Time: 06/13/23 1:07 PM Result Value Ref Range aPTT 40 (H) 28 - 38 sec Protime-INR Collection Time: 06/13/23 1:07 PM Result Value Ref Range PT 14.9 (H) 10.3 - 13.7 sec INR 1.31 (H) 0.90 - 1.20 Comprehensive metabolic panel Collection Time: 06/13/23 1:07 PM Result Value Ref Range Sodium 139 135 - 145 mmol/L Potassium, pl 4.1 3.3 - 4.9 mmol/L Chloride 105 97 - 110 mmol/L CO2 23 22 - 32 mmol/L Anion gap 11 2 - 15 mmol/L BUN 16 6 - 25 mg/dL Creatinine 0.81 0.80 - 1.30 mg/dL Glucose 109 70 - 199 mg/dL Calcium 9.6 8.5 - 10.3 mg/dL Bilirubin, total 0.3 0.1 - 1.2 mg/dL Protein, pl 9.0 (H) 6.5 - 8.5 g/dL Albumin 3.8 3.5 - 5.0 g/dL Alk phos 118 40 - 130 Units/L ALT 29 7 - 55 Units/L AST 23 10 - 50 Units/L CBC with auto differential Collection Time: 06/13/23 1:07 PM Result Value Ref Range WBC 10.5 (H) 3.8 - 9.9 K/cumm Hgb 10.7 (L) 13.0 - 17.5 g/dL Hct 34.2 (L) 38.9 - 50.3 % Plt 462 (H) 150 - 400 K/cumm MPV 9.2 9.1 - 12.3 fL RBC 3.78 (L) 4.30 - 5.80 M/cumm MCV 90.5 81.3 - 96.4 fL MCH 28.3 27.1 - 33.3 pg MCHC 31.3 (L) 32.3 - 35.7 g/dL RDW CV 13.7 11.1 - 14.9 % RDW SD 45.7 35.7 - 48.1 fL NRBC abs 0.00 0.00 - 0.01 K/cumm Cortisol Collection Time: 06/13/23 1:07 PM Result Value Ref Range Cortisol 15.3 4.8 - 19.5 mcg/dL Erythrocyte sedimentation rate Collection Time: 06/13/23 1:07 PM Result Value Ref Range Erythrocyte sedimentation rate 92 (H) 1 - 15 mm/hr CRP (acute phase) Collection Time: 06/13/23 1:07 PM Result Value Ref Range CRP 155.8 (H) <=10.0 mg/L Differential, auto Collection Time: 06/13/23 1:07 PM Result Value Ref Range Neutrophil abs 7.4 (H) 1.5 - 6.5 K/cumm Imm gran abs 0.2 (H) 0.0 - 0.1 K/cumm Lymphocyte abs 1.7 0.8 - 3.3 K/cumm Monocyte abs 1.1 (H) 0.2 - 0.8 K/cumm Eosinophil abs 0.1 0.0 - 0.5 K/cumm Basophil abs 0.1 0.0 - 0.1 K/cumm Neutrophil pct 70.9 % Imm gran pct 1.5 % Lymphocyte pct 15.9 % Monocyte pct 10.5 % Eosinophil pct 0.7 % Basophil pct 0.5 % eGFR Collection Time: 06/13/23 1:07 PM Result Value Ref Range eGFR >90 >=60 mL/min/1.73 m2 POCT creatinine Collection Time: 06/13/23 1:20 PM Result Value Ref Range Creatinine POC 0.7 0.7 - 1.3 mg/dL Urinalysis reflex to microscopic and culture Urine Collection Time: 06/13/23 2:07 PM Specimen: Urine Result Value Ref Range Color, ur Yellow Yellow Clarity, ur Clear Clear Specific gravity, ur >1.042 (H) 1.003 - 1.030 pH, urine 6.0 Protein, ur ql 1+ (A) Negative Glucose, ur ql Negative Negative Ketones, ur Negative Negative Bilirubin, ur Negative Negative Blood, ur Trace (A) Negative Urobilinogen, ur <2.0 <2.0 mg/dL Nitrite, ur Negative Negative Leukocyte esterase, ur Negative Negative UA reflex comment Reflex to microscopic UA will be performed. Urinalysis, microscopic only Collection Time: 06/13/23 2:07 PM Result Value Ref Range WBC, ur 0-5 0 - 5 /HPF RBC, ur 3-5 (A) 0 - 2 /HPF Epithelial cells, squamous, ur 1-5 0 - 5 /HPF Bacteria, ur 1+ (A) Mucous, ur Present (A) Hyaline casts, ur 6-10 0 - 10 /LPF Culture Reflex Comment Reflex conditions for urine culture (WBC >10) not met. Respiratory pathogen panel Nasopharyngeal Collection Time: 06/13/23 2:35 PM Specimen: Nasopharyngeal Result Value Ref Range Influenza A RNA Not Detected Not Detected Influenza B RNA Not Detected Not Detected RSV RNA Not Detected Not Detected COVID-19 RNA Not Detected Not Detected Coronavirus 229E RNA Not Detected Not Detected Coronavirus HKU1 RNA Not Detected Not Detected Coronavirus NL63 RNA Not Detected Not Detected Coronavirus OC43 RNA Not Detected Not Detected Adenovirus DNA Not Detected Not Detected Metapneumovirus RNA Not Detected Not Detected Rhinovirus/Enterovirus RNA Not Detected Not Detected Parainfluenza 1 RNA Not Detected Not Detected Parainfluenza 2 RNA Not Detected Not Detected Parainfluenza 3 RNA Not Detected Not Detected Parainfluenza 4 RNA Not Detected Not Detected B. pertussis DNA Not Detected Not Detected B. parapertussis DNA Not Detected Not Detected C. pneumoniae DNA Not Detected Not Detected M. pneumoniae DNA Not Detected Not Detected Troponin I high-sensitivity 2-hour Collection Time: 06/13/23 2:42 PM Result Value Ref Range Trop I hs 5 <=35 ng/L Trop I hs delta 1 ng/L Trop I hs interp Insignificant Troponin I high-sensitivity 4-hour Collection Time: 06/13/23 4:58 PM Result Value Ref Range Trop I hs 5 <=35 ng/L Trop I hs delta 1 ng/L Trop I hs interp Insignificant Drugs of Abuse Screen, Urine with Reflex Confirmation Collection Time: 06/13/23 4:58 PM Result Value Ref Range Amphetamine, ur Not Detected CutOff 500ng/mL Barbiturates, ur Not Detected CutOff 200ng/mL Benzodiazepines, ur Not Detected CutOff 100ng/mL Cannabinoids, ur Screen Positive, presumptive (A) CutOff 50 ng/mL Cocaine, ur Not Detected CutOff 150ng/mL Fentanyl, Ur Not Detected Cutoff 1 ng/mL Methadone, ur Not Detected CutOff 300ng/mL Opiates, ur Not Detected CutOff 300ng/mL Oxycodone, ur Screen Positive, presumptive (A) CutOff 100ng/mL Phencyclidine, ur Not Detected CutOff 25 ng/mL Urine Creatinine 72 mg/dL Troponin I high-sensitivity 6-hour Collection Time: 06/13/23 6:00 PM Result Value Ref Range Trop I hs 6 <=35 ng/L Trop I hs delta See Comment ng/L Trop I hs pct delta See Comment % Trop I hs interp See Comment Potassium, whole blood Collection Time: 06/13/23 7:11 PM Result Value Ref Range Potassium, bld 3.7 3.3 - 4.9 mmol/L CBC without differential Collection Time: 06/14/23 12:14 AM Result Value Ref Range WBC 9.9 3.8 - 9.9 K/cumm Hgb 9.3 (L) 13.0 - 17.5 g/dL Hct 28.7 (L) 38.9 - 50.3 % Plt 479 (H) 150 - 400 K/cumm MPV 8.9 (L) 9.1 - 12.3 fL RBC 3.25 (L) 4.30 - 5.80 M/cumm MCV 88.3 81.3 - 96.4 fL MCH 28.6 27.1 - 33.3 pg MCHC 32.4 32.3 - 35.7 g/dL RDW CV 13.6 11.1 - 14.9 % RDW SD 44.1 35.7 - 48.1 fL NRBC abs 0.00 0.00 - 0.01 K/cumm Magnesium Collection Time: 06/14/23 12:14 AM Result Value Ref Range Magnesium 2.1 1.4 - 2.5 mg/dL Phosphorus Collection Time: 06/14/23 12:14 AM Result Value Ref Range Phosphorus, pl 3.1 2.3 - 4.5 mg/dL Comprehensive metabolic panel Collection Time: 06/14/23 12:14 AM Result Value Ref Range Sodium 138 135 - 145 mmol/L Potassium, pl 3.9 3.3 - 4.9 mmol/L Chloride 107 97 - 110 mmol/L CO2 20 (L) 22 - 32 mmol/L Anion gap 11 2 - 15 mmol/L BUN 15 6 - 25 mg/dL Creatinine 0.90 0.80 - 1.30 mg/dL Glucose 122 70 - 199 mg/dL Calcium 9.2 8.5 - 10.3 mg/dL Bilirubin, total 0.4 0.1 - 1.2 mg/dL Protein, pl 8.0 6.5 - 8.5 g/dL Albumin 3.5 3.5 - 5.0 g/dL Alk phos 100 40 - 130 Units/L ALT 23 7 - 55 Units/L AST 14 10 - 50 Units/L Lactate, whole blood Collection Time: 06/14/23 12:14 AM Result Value Ref Range Lactate, bld 1.8 0.7 - 2.0 mmol/L eGFR Collection Time: 06/14/23 12:14 AM Result Value Ref Range eGFR >90 >=60 mL/min/1.73 m2 , Chemistry CMP: Lab Results Component Value Date ALBUMIN 3.5 06/14/2023 BUNSER 15 06/14/2023 CALCIUM 9.2 06/14/2023 CO2 20 (L) 06/14/2023 CHLORIDE 107 06/14/2023 CREATININE 0.90 06/14/2023 GLUCOSE 122 06/14/2023 POTASSIUM 3.9 06/14/2023 SODIUM 138 06/14/2023 BILITOT 0.4 06/14/2023 PROT 8.0 06/14/2023 ALT 23 06/14/2023 AST 14 06/14/2023 ALKPHOS 100 06/14/2023 , CBC: Lab Results Component Value Date WBC 9.9 06/14/2023 RBC 3.25 (L) 06/14/2023 HGB 9.3 (L) 06/14/2023 HCT 28.7 (L) 06/14/2023 MCV 88.3 06/14/2023 MCH 28.6 06/14/2023 MCHC 32.4 06/14/2023 RDWCV 13.6 06/14/2023 RDWSD 44.1 06/14/2023 MPV 8.9 (L) 06/14/2023 NRBCABS 0.00 06/14/2023 , Coags: Lab Results Component Value Date PT 14.9 (H) 06/13/2023 APTT 40 (H) 06/13/2023 INR 1.31 (H) 06/13/2023 , Lipids: No results found for: CHOL , CHLPL , HDL , LDLCALC , TRIG , CHOLHDL , Cardiac Enzymes: No results found for: CKTOTAL , CKMB , CKMBINDEX , TROPONINT and POC Glucose: Lab Results Component Value Date GLUCOSE 122 06/14/2023 MRI Thoracic Spine WO Contrast Narrative: EXAMINATION: Magnetic resonance imaging (MRI) of the thoracic spine without contrast HISTORY: Lumbar back pain with elevated inflammatory markers. A recent history of lumbar drain placement TECHNIQUE: Sagittal T2-weighted MRI of the thoracic spine was performed without intravenous contrast using the standard protocol. COMPARISON: None Available. FINDINGS: Only the sagittal T2-weighted images are available for interpretation. Straightening of the thoracic spine is noted with loss of normal kyphosis. Vertebral bodies demonstrate normal signal intensity on T2-weighted images. There are no compression fractures. Thoracic spinal cord is normal in appearance. Intervertebral disks have normal height and signal intensity. Artifacts are associated with patient's known aortic stent. The disks are normal in configuration. There is no significant facet arthropathy. There is no significant neuroforaminal stenosis. There is no spinal canal stenosis. Impression: 1. Only sagittal T2 weighted images were obtained. 2. No acute abnormality of the thoracic spine with normal appearance of intervertebral disks and endplates without evidence of discitis/osteomyelitis. Electronically signed by: Gus Su MD ASSESSMENT/PLAN 33M PMHx of HTN, chronic abdominal pain, mood disorder, and type B aortic dissection s/p TEVAR (thoracic branched endograft) 05/02/[address] Herrera and TEVAR (GORE c tag, Cook dissection stent) 06/05/[address] Samuel for an entry tear distal to prior stent with compromised true lumen. Principal Problem: Infrarenal abdominal aortic aneurysm, without rupture (HCC) He came in yesterday with back pain, fevers, chills, hypertension. CTA with aneurysmal dilatation of abdominal aorta false lumen at level of celiac. Will discuss case with Drs. Vergara and Natacha to determine recommended approach. Will review case in aortic conference this Appreciate Dr. Abarca's input Continue impulse control and close monitoring Patient discussed with Dr. Vergara, who will determine the final recommendations. Marlin Garcia MD Cosigned by Sara Vergara MD at 06/16/2023 8:32 AM COMPANY LAUNDRY WORKER ANY LAUNDRY WORKER ANY LAUNDRY WORKER ANY LAUNDRY WORKER Associated attestation - Sara Vergara MD - 06/16/2023 8:32 AM COMPANY LAUNDRY WORKER I have seen and examined the patient on 06/14/2023. I agree with the findings and plan of care as documented in the resident's/fellow's note.. Plan for continued observation for now. Sara Vergara MD * Emeka Yates MD - 06/13/2023 3:13 PM CSTAssociated Order(s): IP CONSULT TO VASCULAR SURGERY Vascular Surgery Consultation Patient Name/MRN: Eriberto Chau [id number] Reason for Consult: Please do not call, already spoke with them. Back pain Attending: Faustino Herrera MD Today's Date: 06/13/2023 Admitting Service: Vascular Admitting location: [address]/[facility] Admit Date: 06/13/2023 Code Status: Prior CC: Chief Complaint Patient presents with Hypertension HPI: 33 y.o. male with PMHx of HTN, chronic abdominal pain, mood disorder, and type B aortic dissection s/p TBE 05/02/23 and TEVAR 06/05/2023 who presents with two days of hypertension, ongoing back pain andsubjective fevers. Patient was discharged on 06/11/2023. Since discharge he is had struggle controlling his blood pressure even though he is taking all of his medications as scheduled. He reports low back pain that has been persistent since his first admission in April. His course was complicated then by signs of spinal cord ischemia and lumbar drain was placed. He describes aching pain in the low back. Denies any abdominal or chest pain at this time. He does report subjective fevers and chills as well as having been awoken to night sweats since discharge. In the ED, he is AF and hypertensive with systolic BP around 180. Labs notable for Cr 0.7, WBC 10.5, CRP 155.8 and ESR 92. CTA shows some retrograde flow into the false lumen without any acute aorticfindings. Past Medical History: Diagnosis Date Hypertension Kidney stones Past Surgical History: Procedure Laterality Date ABDOMINAL AORTIC ANEURYSM REPAIR Allergies Allergen Reactions Amoxicillin Hives (Not in a hospital admission) Current Facility-Administered Medications Medication Dose Route Frequency Provider Last Rate Last Admin esmolol in 0.9% sodium chloride (BREVIBLOC) 2,500 mg/250 mL (10 mg/mL) infusion (premix) 0-300 mcg/kg/min intravenous Titrated Jae Toledo MD 29.3 mL/hr at 06/13/23 1459 50 mcg/kg/min at 06/13/23 1459 HYDROmorphone (DILAUDID) injection 1 mg 1 mg intravenous Q3H PRN Akash Spears MD 1 mg at 06/13/23 1256 HYDROmorphone (DILAUDID) injection 1.5 mg 1.5 mg intravenous Q3H PRN Akash Spears MD 1.5 mg at 06/13/23 1434 labetaloL (NORMODYNE,TRANDATE) injection 20 mg 20 mg intravenous Q4H PRN Akash Spears MD niCARdipine in sodium chloride 0.9% (CARDENE) 25,000 mcg/250 mL (100 mcg/mL) infusion (premix) solution 0-2.5 mcg/kg/min intravenous Titrated Jae Toledo MD 29.3 mL/hr at 06/13/23 1459 0.5 mcg/kg/min at 06/13/23 1459 Current Outpatient Medications Medication Sig Dispense Refill acetaminophen 500 mg capsule Take 2 capsules (1,000 mg total) by mouth every 6 (six) hours as needed for pain 30 tablet 0 albuterol HFA (PROVENTIL HFA,VENTOLIN HFA,PROAIR HFA) 90 mcg/actuation inhaler Inhale 2 puffs every4 (four) hours as needed for wheezing 1 each 0 amLODIPine (NORVASC) 5 mg tablet Take 1 tablet (5 mg total) by mouth daily 30 tablet 11 aspirin 81 mg chewable tablet Take 1 tablet (81 mg total) by mouth daily 30 tablet 11 carvediloL (COREG) 25 mg tablet Take 1 tablet (25 mg total) by mouth 2 (two) times a day with meals60 tablet 11 gabapentin (NEURONTIN) 300 mg capsule Take 1 capsule (300 mg total) by mouth 3 (three) times a day 90 capsule 11 hydrALAZINE (APRESOLINE) 25 mg tablet Take 1 tablet (25 mg total) by mouth 3 (three) times a day 90tablet 11 lidocaine (ASPERCREME) 4 % adhesive patch,medicated Place 2 patches on the skin daily 20 patch 0 methocarbamoL (ROBAXIN) 750 mg tablet Take 1 tablet (750 mg total) by mouth 3 (three) times a day 90 tablet 0 ondansetron ODT (ZOFRAN-ODT) 4 mg disintegrating tablet Take 1 tablet (4 mg total) by mouth every 8(eight) hours as needed for nausea or vomiting 10 tablet 0 oxyCODONE (ROXICODONE) 10 mg tablet Take 1 tablet (10 mg total) by mouth every 4 (four) hours as needed for pain 20 tablet 0 polyethylene glycol (MIRALAX) 17 gram/dose bulk powder Take 17 g by mouth daily as needed (constipation) QUEtiapine (SEROquel) 50 mg tablet Take 1 tablet (50 mg total) by mouth nightly 30 tablet 0 senna-docusate (PERICOLACE) 8.6-50 mg Take 2 tablets by mouth 2 (two) times a day To prevent constipation 40 tablet 0 tamsulosin (FLOMAX) 0.4 mg extended release capsule Take 1 capsule (0.4 mg total) by mouth daily 30capsule 0 History reviewed. No pertinent family history. Social History Tobacco Use Smoking status: Never Smokeless tobacco: Never Substance and Sexual Activity Drug use: Not Currently Sexual activity: None Alcohol Use: Not on file Review of Systems: ROS was obtained and all negative except as is noted in HPI. Objective Vitals: Arrival Vitals [06/13/23 1229] Temp 37.1 ??C (98.8 ??F) Pulse 93 Resp 18 BP (!) 179/106 SpO2 100 % Temp src Oral Heart Rate Source Patient Position BP Location FiO2 (%) Most Recent : Vitals: 06/13/23 1245 BP: (!) 181/111 Pulse: 88 Resp: 16 Temp: SpO2: 100% No intake/output data recorded. No intake/output data recorded. Physical exam: Constitutional: Appears uncmfortable Neuro: Alert and oriented x3. No gross focal deficits. CVS: Regular rate and rhythm Resp: Non-labored breathing, symmetric chest wall movements Abdomen: Soft, non-distended, non-tender Extremities: No rashes, no significant edema Neuromuscular: Motor strength grossly normal all 4 extremities. Point tenderness over lumbar spine. Incisions/Wounds: CDI Pulses: Right Radial: palpable Right Femoral: palpable Right AT/DP: palpable Right PT: palpable Left Radial: palpable Left Femoral: palpable Left AT/DP: palpable Left PT: palpable Lab/Radiology/Diagnostic Review: Laboratory review: Lab results in the last 24 hours: Recent Results (from the past 24 hour(s)) Troponin I high-sensitivity series (baseline, 2hr, 4hr, 6hr) Collection Time: 06/13/23 1:07 PM Result Value Ref Range Trop I hs 4 <=35 ng/L aPTT Collection Time: 06/13/23 1:07 PM Result Value Ref Range aPTT 40 (H) 28 - 38 sec Protime-INR Collection Time: 06/13/23 1:07 PM Result Value Ref Range PT 14.9 (H) 10.3 - 13.7 sec INR 1.31 (H) 0.90 - 1.20 Comprehensive metabolic panel Collection Time: 06/13/23 1:07 PM Result Value Ref Range Sodium 139 135 - 145 mmol/L Potassium, pl 4.1 3.3 - 4.9 mmol/L Chloride 105 97 - 110 mmol/L CO2 23 22 - 32 mmol/L Anion gap 11 2 - 15 mmol/L BUN 16 6 - 25 mg/dL Creatinine 0.81 0.80 - 1.30 mg/dL Glucose 109 70 - 199 mg/dL Calcium 9.6 8.5 - 10.3 mg/dL Bilirubin, total 0.3 0.1 - 1.2 mg/dL Protein, pl 9.0 (H) 6.5 - 8.5 g/dL Albumin 3.8 3.5 - 5.0 g/dL Alk phos 118 40 - 130 Units/L ALT 29 7 - 55 Units/L AST 23 10 - 50 Units/L CBC with auto differential Collection Time: 06/13/23 1:07 PM Result Value Ref Range WBC 10.5 (H) 3.8 - 9.9 K/cumm Hgb 10.7 (L) 13.0 - 17.5 g/dL Hct 34.2 (L) 38.9 - 50.3 % Plt 462 (H) 150 - 400 K/cumm MPV 9.2 9.1 - 12.3 fL RBC 3.78 (L) 4.30 - 5.80 M/cumm MCV 90.5 81.3 - 96.4 fL MCH 28.3 27.1 - 33.3 pg MCHC 31.3 (L) 32.3 - 35.7 g/dL RDW CV 13.7 11.1 - 14.9 % RDW SD 45.7 35.7 - 48.1 fL NRBC abs 0.00 0.00 - 0.01 K/cumm Erythrocyte sedimentation rate Collection Time: 06/13/23 1:07 PM Result Value Ref Range Erythrocyte sedimentation rate 92 (H) 1 - 15 mm/hr CRP (acute phase) Collection Time: 06/13/23 1:07 PM Result Value Ref Range CRP 155.8 (H) <=10.0 mg/L Differential, auto Collection Time: 06/13/23 1:07 PM Result Value Ref Range Neutrophil abs 7.4 (H) 1.5 - 6.5 K/cumm Imm gran abs 0.2 (H) 0.0 - 0.1 K/cumm Lymphocyte abs 1.7 0.8 - 3.3 K/cumm Monocyte abs 1.1 (H) 0.2 - 0.8 K/cumm Eosinophil abs 0.1 0.0 - 0.5 K/cumm Basophil abs 0.1 0.0 - 0.1 K/cumm Neutrophil pct 70.9 % Imm gran pct 1.5 % Lymphocyte pct 15.9 % Monocyte pct 10.5 % Eosinophil pct 0.7 % Basophil pct 0.5 % eGFR Collection Time: 06/13/23 1:07 PM Result Value Ref Range eGFR >90 >=60 mL/min/1.73 m2 POCT creatinine Collection Time: 06/13/23 1:20 PM Result Value Ref Range Creatinine POC 0.7 0.7 - 1.3 mg/dL Urinalysis reflex to microscopic and culture Urine Collection Time: 06/13/23 2:07 PM Specimen: Urine Result Value Ref Range Color, ur Yellow Yellow Clarity, ur Clear Clear Specific gravity, ur >1.042 (H) 1.003 - 1.030 pH, urine 6.0 Protein, ur ql 1+ (A) Negative Glucose, ur ql Negative Negative Ketones, ur Negative Negative Bilirubin, ur Negative Negative Blood, ur Trace (A) Negative Urobilinogen, ur <2.0 <2.0 mg/dL Nitrite, ur Negative Negative Leukocyte esterase, ur Negative Negative UA reflex comment Reflex to microscopic UA will be performed. Urinalysis, microscopic only Collection Time: 06/13/23 2:07 PM Result Value Ref Range WBC, ur 0-5 0 - 5 /HPF RBC, ur 3-5 (A) 0 - 2 /HPF Epithelial cells, squamous, ur 1-5 0 - 5 /HPF Bacteria, ur 1+ (A) Mucous, ur Present (A) Hyaline casts, ur 6-10 0 - 10 /LPF Culture Reflex Comment Reflex conditions for urine culture (WBC >10) not met. XR Chest 1 Vw Portable Final Result Comparison is made to prior study dated 06/10/2023. There are unchanged findings of endovascular stenting involving the distal arch, descending thoracic aorta, and left subclavian artery, for management of the known dissection. No focal pneumonic consolidation or pulmonary edema. No pleural effusion or pneumothorax. Heart and mediastinal contours are stable, and the heart is normal in size. Electronically signed by: Heber Leos M.D. POCUS Cardiac Final Result POCUS Retroperitoneal (AAA or Renal) Final Result CT Recon Thoracic and Lumbar Spine W Contrast (C) (Results Pending) CTA Chest Abdomen Pelvis (Results Pending) MRI Spine Thoracic and Lumbar W Contrast (Results Pending) Assessment/Plan: 33 y.o. male with PMHx of HTN, chronic abdominal pain, mood disorder, and type B aortic dissection s/p TBE 05/02/23 and TEVAR 06/05/2023 who presents with two days of hypertension, ongoing back pain andsubjective fevers. Patient has point tenderness along lumbar spine as well as generalized back painwith systolic BP in the 170-180s. No acute findings of CTA. - CTICU admission under vascular for impulse control with systolic goal between 120-140 - Recommend starting abx with NURSERY HELPER penetration - q1h NV checks - Will discuss possible open repair with CT surgery team - F/u CT spine with recons Emeka Yates MD Resident Physician Vascular Surgery Vascular Consult Vascular Inpatient Floor [facility] Outpatient [facility] Cosigned by Faustino Herrera MD at 06/13/2023 3:55 PM COMPANY LAUNDRY WORKER ANY LAUNDRY WORKER ANY LAUNDRY WORKER Associated attestation - Faustino Herrera MD - 06/13/2023 3:55 PM COMPANY LAUNDRY WORKER I have seen and examined the patient on 06/13/23. I agree with the findings and plan of care as documented in the resident's/fellow's note.. documented in this encounter Nursing Notes * Angelica Costa RN - 06/24/2023 7:58 PM CST [id number] Alert and appropriate. Medicated for pain. Up at bedside. Tolerating diet. Void per urinal. See labs, flowhseets. ANY LAUNDRY WORKER * Dalton Rubio RN - 06/16/2023 3:38 AM CST Patient was given 1 mg of Lorazepam on 06/16 at 0338. 1 mg was wasted. Cosigned by Hill Hopper, BRIA at 06/24/2023 1:29 AM COMPANY LAUNDRY WORKER ANY LAUNDRY WORKER ANY LAUNDRY WORKER * Dalton Rubio RN - 06/15/2023 8:52 PM CST The [place] Swallow Protocol was administered to the patient 06/15/23 at 2000. This swallow screening is validated tool comprised of a brief cognitive screen, basic assessment oforal function and a 3 oz water swallow challenge. If passed, a diet is to be initiated per providerorder. If failed, the patient is to remain NPO until a formal swallow evaluation is completed by speech-language pathology. The patient passed the [place] Swallow Screen. ANY LAUNDRY WORKER documented in this encounter ED Notes * Guerrero De Los Santos MD - 06/13/2023 1:42 PM CST HPI Chief Complaint Patient presents with Hypertension Eriberto Chau is a 33 y.o. M with PMH notable for hypertension, AAA status post TEVAR and dissection stent placement on 06/05 and discharged on 06/09, chronic abdominal pain, and mood disorder who presents by personal vehicle for back pain and hypertension. Patient was instructed to come in after calling his vascular surgeon Dr. Herrera. Patient states that since his discharge from the hospital a f ew days ago, he has been taking his antihypertensive that were adjusted during his hospitalization for permissive hypertension above 140 SBP; however, patient's blood pressures have persistently measured in the 170s and 180s. He has had some associated back pain and pain in his left groin at the PCI site. He states that he is chronic lumbar pain but it has been worse the past few days. He has also had some associated fever and chills but no other obvious symptoms of infection, such as dysuria, hematuria, cough, congestion, shortness of breath, NVD, abdominal pain. He denies any numbness, weakness, tingling, or other abnormal symptoms particularly in his legs. Patient History: Patient Active Problem List Diagnosis Date Noted Infrarenal abdominal aortic aneurysm, without rupture (HCC) 06/13/2023 Polysubstance abuse (CMS/HCC) (HCC) 06/10/2023 Moderate malnutrition (CMS/HCC) (HCC) 06/09/2023 Dissection of abdominal aorta (CMS/HCC) (HCC) 06/03/2023 Urinary retention 05/16/2023 Epistaxis 05/13/2023 Pneumonia 05/13/2023 HTN (hypertension) 05/13/2023 Dissection of thoracoabdominal aorta (CMS/HCC) (HCC) 05/02/2023 Dissection of aorta, unspecified portion of aorta (HCC) 05/01/2023 Past Medical History: Diagnosis Date Hypertension [...] Triage Vitals Temp Pulse Resp BP SpO2 06/13/23 1229 06/13/23 1229 06/13/23 1229 06/13/23 1229 06/13/23 1229 37.1 ??C (98.8 ??F) 93 18 (!) 179/106 100 % Temp src Heart Rate Source Patient Position BP Location FiO2 (%) 06/13/23 1229 06/13/23 1747 06/14/23 0800 06/14/23 0800 -- Oral Monitor Lying Right arm Height Height Method Weight Weight Method 06/13/23 1229 06/13/23 1229 06/13/23 1229 06/13/23 1229 1.753 m (5' 9 ) Stated 97.5 kg (215 lb) Stated Physical Exam Constitutional: General: He is not in acute distress. Appearance: He is ill-appearing and diaphoretic. He is not toxic-appearing. HENT: Head: Normocephalic and atraumatic. Eyes: Extraocular Movements: Extraocular movements intact. Conjunctiva/sclera: Conjunctivae normal. Pupils: Pupils are equal, round, and reactive to light. Cardiovascular: Rate and Rhythm: Normal rate and regular rhythm. Pulses: Normal pulses. Heart sounds: Normal heart sounds. No murmur heard. No friction rub. No gallop. Pulmonary: Effort: Pulmonary effort is normal. No respiratory distress. Breath sounds: Normal breath sounds. No wheezing, rhonchi or rales. Abdominal: General: Abdomen is flat. There is no distension. Palpations: Abdomen is soft. Tenderness: There is no abdominal tenderness. There is no guarding or rebound. Musculoskeletal: General: Tenderness (TTP at his left groin surgical site. There is potentially an associated thrill.) present. No swelling, deformity or signs of injury. Right lower leg: No edema. Left lower leg: No edema. Neurological: General: No focal deficit present. Mental Status: He is alert and oriented to person, place, and time. Mental status is at baseline. Cranial Nerves: No cranial nerve deficit. Motor: No weakness. Gait: Gait normal. Psychiatric: Mood and Affect: Mood normal. CHRISTIANO Chau is a 33 y.o. M with PMH notable for hypertension, AAA status post TEVAR and dissection stent placement on 06/05 and discharged on 06/09, chronic abdominal pain, and mood disorder who presents by personal vehicle for back pain and hypertension. Patient is uncomfortable appearing on exam and hypertensive up to the 180s systolic but with otherwise normal vitals. He is neurovascularly i ntact in his distal lower extremities. There is mild ecchymosis and discoloration at the left groinsite, which is particularly tender to palpation - there is a soft thrill. His hypertension is likely a representation of his recent medication adjustments with the goal of permissive hypertension favoring spinal fusion. His back pain could be acute on chronic given his history of such. Alternatively, this pain could represent an endoleak, aneurysm, diskitis/osteomyelitis, SEA (less likely given no history of IVDU), ACS, or extension of the dissection. Plan to CT along with a broad workup to target these potential etiologies in addition to evaluation of his surgical site for a potential underlying infection. Medical Decision Making Amount and/or Complexity of Data Reviewed Labs: ordered. Decision-making details documented in ED Course. Radiology: ordered. ECG/medicine tests: ordered. Risk Prescription drug management. Decision regarding hospitalization. Attending Summary of Care See prior notes. Briefly, patient is a 33-year-old male with a past medical history significant foraortic pathology status post recent vascular stenting (discharged from [facility] within the last several days) who presents accompanied by his with a chief complaint of hypertension and mild chest pain/back pain. His was told to watch his vital signs while at home. She has noted that he has been tachycardic and hypertensive. She is concerned regarding these vital signs. The patient describes some mild chest pain with radiation to his back. He denies numbness or tingling in his legs. He denies urinary or stool incontinence. He does report some intermittent fevers/chills. He notes a mild productive cough. He denies other complaints. His initial heart rate is noted to be in the 80s. He is noted to be hypertensive with a systolic blood pressure in the 180s. Due to hypertension; received dose of labetalol upon arrival to the ED. Laboratory workup is unremarkable. Bedside ultrasound showed relatively normal cardiac squeeze; no obvious cardiac effusion. Difficult ultrasound imaging a of aorta/graft. Will proceed with CT imaging to rule out acute aneurysm, graft complication, other vascular complication. Will consult vascularsurgery. Will obtain admission labs, cardiac workup, respiratory viral panel. Screening chest x-ray. Serial exams. Disposition based off of imaging and laboratory workup. Due to recent complex vascular surgery anticipate need for admission for overnight observation regardless of workup. I have seen and examined the patient on 06/13/2023. I agree with the findings and plan of care as documented in the resident's note. Guerrero De Los Santos MD ED Course as of 06/15/23 1834 Time: 06/13 1305 Comment: Teaching resident attestation: I, Jae Toledo MD, have discussed the case with the [facility] resident, examined the patient, and reviewed the history with the patient. Briefly, this patient is a 33 y.o. male here with several complaints, as well as hypertension. Patient was just recently discharged. Since discharge the patient has had low back pain. He has also had chills. He has had excruciating pain at his surgical site in his left groin. He has had no numbness or tingling of his legs. He did have some severe low back pain day so ago. Here the patient has bounding pulses in bilateral lower extremities. He appears very uncomfortable.He is diaphoretic (states he has had low-grade fevers at home, chills.) He has also had uncontrolled hypertension. He has no tenderness of his abdomen, no murmur. His surgical site appears clean dry and intact with no signs of infection outwardly. By: Jae Toledo MD Time: 06/13 1311 Comment: Ddx: Surgical site infection, verses simple musculoskeletal back pain (currently no pain) verses endoleak verses abscess verses diskitis, lower concern for epidural abscess given no leg weakness, no concern for cauda equina syndrome given examination. Osteomyelitis less likely given no tachycardia here. Low concern for ACS given lack of chest pain or shortness of breath. Low concern for pneumonia given no abnormal lung sounds on auscultation. Low concern for other intra-abdominal infection given no tenderness of the belly but we will investigate this with a CT scan since the patient could have an endoleak. Uncontrolled pain maybe the cause of the patient's hypertension. Patient states he has been very compliant with his medications making this less likely. By: Jae Toledo MD Time: 06/13 1341 Value: Imm gran abs(!): 0.2 Comment: Left shift By: Jae Toledo MD Time: 06/13 1341 Value: WBC(!): 10.5 Comment: (Reviewed) By: Jae Toledo MD Time: 06/13 1343 Value: Plt(!): 462 Comment: Suggestive of chronic inflammation By: Jae Toledo MD Time: 06/13 1426 Value: CRP(!): 155.8 Comment: (Reviewed) By: Jae Toledo MD Time: 06/13 1428 Comment: Discussed admission By: Jae Toledo MD Time: 06/13 1432 Comment: On my review of chart patient had his lumbar drain placed by anesthesia when he went to surgery last. By: Jae Toledo MD Time: 06/13 3618 Comment: Patient has multiple markers of inflammation. He has thrombocytosis, elevated ESR, elevated CRP, and a left shift. He has had low-grade fevers. Examination of the patient's back at this timereveals no outward signs of inflammation or infection, the patient does have midline tenderness of the low thoracic and then lumbar spine. Based on this, and the recent access of the patient's subdural space, he is at risk for spinal epidural abscess. Will plan on MRI. May need antibiotics; at thistime, patient has absolutely no weakness, numbness, tingling, paresthesias, or any other symptoms that could be consistent with neurologic abnormalities from a spinal epidural abscess. At this time, I do believe it is appropriate to proceed with workup without antibiotics, as if the patient does have an abscess, it would be appropriate to perform sampling of the abscess. By: Jae Toledo MD Time: 06/13 1639 Comment: Spoke with [id number] ICU fellow. Will accept patient to their service By: Torin Alas Jr., MD Infrarenal abdominal aortic aneurysm, without rupture (HCC) Hypertension, unspecified type Acute midline thoracic back pain Lumbar spine pain Guerrero De Los Santos MD 06/13/23 1459 Guerrero De Los Santos MD 06/15/23 1835 ANY LAUNDRY WORKER ANY LAUNDRY WORKER * Nicole Tolbert RN - 06/13/2023 12:39 PM CST Bed: [facility] Expected date: Expected time: Means of arrival: Car Comments: triage Nicole Tolbert RN 06/13/23 1239 ANY LAUNDRY WORKER * Ana Glass RN - 06/13/2023 12:27 PM CST Pt had surgery for AAA on jun 05 Pt having hypertension for last 2 days pt states he has been taking b/p meds pt denies any chest pain, sob, headache, dizziness ANY LAUNDRY WORKER documented in this encounter Miscellaneous Notes * Plan of Care - Aleisha Morejon RN - 06/25/2023 4:40 AM CST Problem: Health Behavior: Goal: Understanding [...] pain management regimen will improve Outcome: Progressing Problem: Sensory: Goal: Ability to identify factors that increase the pain will improve Outcome: Progressing Goal: Pain level will decrease Outcome: Progressing Problem: Activity: Goal: Ability to return to normal activity level will improve Outcome: Progressing Problem: Lack of Knowledge: Goal: Knowledge of the prescribed therapeutic regimen will improve Outcome: Progressing Problem: Coping: Goal: Ability to cope will improve Outcome: Progressing Problem: Health Behavior: Goal: Identification of resources available to assist in meeting health care needs will improve Outcome: Progressing Problem: Sensory: Goal: Pain level will decrease Outcome: Progressing Problem: Activity: Goal: Ability to tolerate increased activity will improve Outcome: Progressing Problem: Cardiac: Goal: Hemodynamic stability will improve Outcome: Progressing Goal: Complications related to the disease process, condition or treatment will be avoided or minimized Outcome: Progressing Goal: Cerebral tissue perfusion will improve Outcome: Progressing Problem: Lack of Knowledge: Goal: Knowledge of disease or condition will improve Outcome: Progressing Goal: Knowledge of the prescribed therapeutic regimen will improve Outcome: Progressing Problem: Coping: Goal: Ability to identify and develop effective coping behavior will improve Outcome: Progressing Problem: Health Behavior: Goal: Identification of resources available to assist in meeting health care needs will improve Outcome: Progressing Problem: Nutritional: Goal: Ability to identify appropriate dietary choices will improve Outcome: Progressing Problem: Lack of Knowledge: Goal: Ability to state ways to decrease the risk of falls will improve Outcome: Progressing Problem: Safety: Goal: Will remain free from falls Outcome: Progressing Goal: Will remain free from injury from falls Outcome: Progressing Goal: Will remain free from falls and injury in home environment Outcome: Progressing Problem: Activity: Goal: Risk for activity intolerance will decrease Outcome: Progressing Problem: Lack of Knowledge: Goal: Knowledge of diagnostic tests will improve Outcome: Progressing Goal: Knowledge of disease or condition will improve Outcome: Progressing Goal: Knowledge of safety precautions will improve Outcome: Progressing Goal: Knowledge of the prescribed therapeutic regimen will improve Outcome: Progressing Problem: Health Behavior: Goal: Ability to state signs and symptoms to report to health care provider will improve Outcome: Progressing Problem: Physical Regulation: Goal: Ability to maintain clinical measurements within normal limits will improve Outcome: Progressing Problem: Infection Risk: Goal: Will remain free from infection Outcome: Progressing Problem: Safety: Goal: Ability to remain free from injury will improve Outcome: Progressing Goal: Will remain free from falls Outcome: Progressing Problem: Self-Care: Goal: Ability to participate in self-care as condition permits will improve Outcome: Progressing Problem: Sensory: Goal: Pain level will decrease Outcome: Progressing Goal: Ability to develop a pain control plan will improve Outcome: Progressing Problem: Skin Integrity: Goal: Risk for impaired skin integrity will decrease Outcome: Progressing Problem: Tissue Perfusion: Goal: Risk factors for ineffective tissue perfusion will decrease Outcome: Progressing Problem: Activity: Goal: Mobility will improve Outcome: Progressing Problem: Lack of Knowledge: Goal: Understanding of ways to prevent future skin breakdown will improve Outcome: Progressing Goal: Ability to identify appropriate dietary choices will improve Outcome: Progressing Problem: Nutritional: Goal: Dietary intake will improve Outcome: Progressing Goal: Ability to maintain a balanced intake and output will improve Outcome: Progressing Problem: Skin Integrity: Goal: Risk for impaired skin integrity will decrease Outcome: Progressing Goal: Ability to demonstrate warm and dry skin will improve Outcome: Progressing Goal: Circulation will improve to fullest extent possible Outcome: Progressing Goals: Clinical Goals for the Shift: Monitor VS. Pain management Summary: Pt states is upset d/t great aunt passing away yesterday. Emotional support given. No acute changes overnight. ANY LAUNDRY WORKER * Assessment & Plan Note - Bettie Wheeler NP - 06/24/2023 10:40 AM CSTAssociated Problem(s): Pseudoaneurysm following procedure (CMS/HCC) (HCC) - s/p vascular access - Q4 N/V checks - no current surgical intervention - no activity restrictions, OOB/ ambulate ANY LAUNDRY WORKER * Assessment & Plan Note - Bettie Wheeler NP - 06/24/2023 10:39 AM CSTAssociated Problem(s): Infrarenal abdominal aortic aneurysm, without rupture (HCC) s/p TEVAR on 06/05/23 (graft terminates above celiac take off) 06/11 discharged home; 06/13 Re admittedfor worsening back pain, HTN, and subjective fever/chills. - CT 06/13 shows no change in aneurysm, no stent migration, no increase in false lumen perfusion - non operative ANY LAUNDRY WORKER ANY LAUNDRY WORKER * Assessment & Plan Note - Bettie Wheeler NP - 06/24/2023 10:32 AM CSTAssociated Problem(s): Other chronic pain - CT without discitis or osteomyelitis on 06/13 - MRI 06/13 also without discitis or osteomyelitis - no narcotic pain medications are required from vascular surgery perspective - Consult pain management team ANY LAUNDRY WORKER ANY LAUNDRY WORKER * Assessment & Plan Note - Bettie Wheeler NP - 06/24/2023 10:28 AM CSTAssociated Problem(s): HTN (hypertension) Difficult to control Htn. Dr. Abarca following - Continue amlodipine, lisinopril, coreg, hydralazine - SBP goal 120-140 - VS q 4 hrs and prn ANY LAUNDRY WORKER ANY LAUNDRY WORKER * Plan of Care - Roge Tolbert RN - 06/24/2023 8:58 AM CST Problem: Health Behavior: Goal: Understanding [...] pain management regimen will improve Outcome: Progressing Problem: Sensory: Goal: Ability to identify factors that increase the pain will improve Outcome: Progressing Goal: Pain level will decrease Outcome: Progressing Problem: Activity: Goal: Ability to return to normal activity level will improve Outcome: Progressing Problem: Lack of Knowledge: Goal: Knowledge of the prescribed therapeutic regimen will improve Outcome: Progressing Problem: Coping: Goal: Ability to cope will improve Outcome: Progressing Problem: Health Behavior: Goal: Identification of resources available to assist in meeting health care needs will improve Outcome: Progressing Problem: Sensory: Goal: Pain level will decrease Outcome: Progressing Problem: Activity: Goal: Ability to tolerate increased activity will improve Outcome: Progressing Problem: Cardiac: Goal: Hemodynamic stability will improve Outcome: Progressing Goal: Complications related to the disease process, condition or treatment will be avoided or minimized Outcome: Progressing Goal: Cerebral tissue perfusion will improve Outcome: Progressing Problem: Lack of Knowledge: Goal: Knowledge of disease or condition will improve Outcome: Progressing Goal: Knowledge of the prescribed therapeutic regimen will improve Outcome: Progressing Problem: Coping: Goal: Ability to identify and develop effective coping behavior will improve Outcome: Progressing Problem: Health Behavior: Goal: Identification of resources available to assist in meeting health care needs will improve Outcome: Progressing Problem: Nutritional: Goal: Ability to identify appropriate dietary choices will improve Outcome: Progressing Problem: Lack of Knowledge: Goal: Ability to state ways to decrease the risk of falls will improve Outcome: Progressing Problem: Safety: Goal: Will remain free from falls Outcome: Progressing Goal: Will remain free from injury from falls Outcome: Progressing Goal: Will remain free from falls and injury in home environment Outcome: Progressing Problem: Activity: Goal: Risk for activity intolerance will decrease Outcome: Progressing Problem: Lack of Knowledge: Goal: Knowledge of diagnostic tests will improve Outcome: Progressing Goal: Knowledge of disease or condition will improve Outcome: Progressing Goal: Knowledge of safety precautions will improve Outcome: Progressing Goal: Knowledge of the prescribed therapeutic regimen will improve Outcome: Progressing Problem: Health Behavior: Goal: Ability to state signs and symptoms to report to health care provider will improve Outcome: Progressing Problem: Physical Regulation: Goal: Ability to maintain clinical measurements within normal limits will improve Outcome: Progressing Problem: Infection Risk: Goal: Will remain free from infection Outcome: Progressing Problem: Safety: Goal: Ability to remain free from injury will improve Outcome: Progressing Goal: Will remain free from falls Outcome: Progressing Problem: Self-Care: Goal: Ability to participate in self-care as condition permits will improve Outcome: Progressing Problem: Sensory: Goal: Pain level will decrease Outcome: Progressing Goal: Ability to develop a pain control plan will improve Outcome: Progressing Problem: Skin Integrity: Goal: Risk for impaired skin integrity will decrease Outcome: Progressing Problem: Tissue Perfusion: Goal: Risk factors for ineffective tissue perfusion will decrease Outcome: Progressing Problem: Activity: Goal: Mobility will improve Outcome: Progressing Problem: Lack of Knowledge: Goal: Understanding of ways to prevent future skin breakdown will improve Outcome: Progressing Goal: Ability to identify appropriate dietary choices will improve Outcome: Progressing Problem: Nutritional: Goal: Dietary intake will improve Outcome: Progressing Goal: Ability to maintain a balanced intake and output will improve Outcome: Progressing Goals: Clinical Goals for the Shift: Pain control, VSS Summary: ANY LAUNDRY WORKER * Plan of Ann - Colt Rene RN - 06/22/2023 11:54 PM CST Problem: Health Behavior: Goal: Understanding [...] pain management regimen will improve Outcome: Progressing Problem: Sensory: Goal: Ability to identify factors that increase the pain will improve Outcome: Progressing Goal: Pain level will decrease Outcome: Progressing Problem: Activity: Goal: Ability to return to normal activity level will improve Outcome: Progressing Problem: Lack of Knowledge: Goal: Knowledge of the prescribed therapeutic regimen will improve Outcome: Progressing Problem: Coping: Goal: Ability to cope will improve Outcome: Progressing Problem: Health Behavior: Goal: Identification of resources available to assist in meeting health care needs will improve Outcome: Progressing Problem: Sensory: Goal: Pain level will decrease Outcome: Progressing Problem: Activity: Goal: Ability to tolerate increased activity will improve Outcome: Progressing Problem: Cardiac: Goal: Hemodynamic stability will improve Outcome: Progressing Goal: Complications related to the disease process, condition or treatment will be avoided or minimized Outcome: Progressing Goal: Cerebral tissue perfusion will improve Outcome: Progressing Problem: Lack of Knowledge: Goal: Knowledge of disease or condition will improve Outcome: Progressing Goal: Knowledge of the prescribed therapeutic regimen will improve Outcome: Progressing Problem: Coping: Goal: Ability to identify and develop effective coping behavior will improve Outcome: Progressing Problem: Health Behavior: Goal: Identification of resources available to assist in meeting health care needs will improve Outcome: Progressing Problem: Nutritional: Goal: Ability to identify appropriate dietary choices will improve Outcome: Progressing Problem: Lack of Knowledge: Goal: Ability to state ways to decrease the risk of falls will improve Outcome: Progressing Problem: Safety: Goal: Will remain free from falls Outcome: Progressing Goal: Will remain free from injury from falls Outcome: Progressing Goal: Will remain free from falls and injury in home environment Outcome: Progressing Problem: Activity: Goal: Risk for activity intolerance will decrease Outcome: Progressing Problem: Lack of Knowledge: Goal: Knowledge of diagnostic tests will improve Outcome: Progressing Goal: Knowledge of disease or condition will improve Outcome: Progressing Goal: Knowledge of safety precautions will improve Outcome: Progressing Goal: Knowledge of the prescribed therapeutic regimen will improve Outcome: Progressing Problem: Health Behavior: Goal: Ability to state signs and symptoms to report to health care provider will improve Outcome: Progressing Problem: Physical Regulation: Goal: Ability to maintain clinical measurements within normal limits will improve Outcome: Progressing Problem: Infection Risk: Goal: Will remain free from infection Outcome: Progressing Problem: Safety: Goal: Ability to remain free from injury will improve Outcome: Progressing Goal: Will remain free from falls Outcome: Progressing Problem: Self-Care: Goal: Ability to participate in self-care as condition permits will improve Outcome: Progressing Problem: Sensory: Goal: Pain level will decrease Outcome: Progressing Goal: Ability to develop a pain control plan will improve Outcome: Progressing Problem: Skin Integrity: Goal: Risk for impaired skin integrity will decrease Outcome: Progressing Problem: Tissue Perfusion: Goal: Risk factors for ineffective tissue perfusion will decrease Outcome: Progressing Problem: Activity: Goal: Mobility will improve Outcome: Progressing Problem: Lack of Knowledge: Goal: Understanding of ways to prevent future skin breakdown will improve Outcome: Progressing Goal: Ability to identify appropriate dietary choices will improve Outcome: Progressing Problem: Nutritional: Goal: Dietary intake will improve Outcome: Progressing Goal: Ability to maintain a balanced intake and output will improve Outcome: Progressing Goals: Clinical Goals for the Shift: VSS, I&O, Sleep hygiene, and pain control. ANY LAUNDRY WORKER * Plan of Cayla Box RN - 06/22/2023 1:21 PM CST Goals: Clinical Goals for the Shift: hemodynamic stability, sbp <140, pain management, sleep + pulmonary hyiene, i&o's, labs, attempt to wear niv for gaurav overnight Problem: Health Behavior: Goal: Understanding of discharge [...] pain management regimen will improve Outcome: Progressing Problem: Sensory: Goal: Ability to identify factors that increase the pain will improve Outcome: Progressing Goal: Pain level will decrease Outcome: Progressing Problem: Activity: Goal: Ability to return to normal activity level will improve Outcome: Progressing Problem: Lack of Knowledge: Goal: Knowledge of the prescribed therapeutic regimen will improve Outcome: Progressing Problem: Coping: Goal: Ability to cope will improve Outcome: Progressing Problem: Health Behavior: Goal: Identification of resources available to assist in meeting health care needs will improve Outcome: Progressing Problem: Sensory: Goal: Pain level will decrease Outcome: Progressing Problem: Activity: Goal: Ability to tolerate increased activity will improve Outcome: Progressing Problem: Cardiac: Goal: Hemodynamic stability will improve Outcome: Progressing Goal: Complications related to the disease process, condition or treatment will be avoided or minimized Outcome: Progressing Goal: Cerebral tissue perfusion will improve Outcome: Progressing Problem: Lack of Knowledge: Goal: Knowledge of disease or condition will improve Outcome: Progressing Goal: Knowledge of the prescribed therapeutic regimen will improve Outcome: Progressing Problem: Coping: Goal: Ability to identify and develop effective coping behavior will improve Outcome: Progressing Problem: Health Behavior: Goal: Identification of resources available to assist in meeting health care needs will improve Outcome: Progressing Problem: Nutritional: Goal: Ability to identify appropriate dietary choices will improve Outcome: Progressing Problem: Lack of Knowledge: Goal: Ability to state ways to decrease the risk of falls will improve Outcome: Progressing Problem: Safety: Goal: Will remain free from falls Outcome: Progressing Goal: Will remain free from injury from falls Outcome: Progressing Goal: Will remain free from falls and injury in home environment Outcome: Progressing Problem: Activity: Goal: Risk for activity intolerance will decrease Outcome: Progressing Problem: Lack of Knowledge: Goal: Knowledge of diagnostic tests will improve Outcome: Progressing Goal: Knowledge of disease or condition will improve Outcome: Progressing Goal: Knowledge of safety precautions will improve Outcome: Progressing Goal: Knowledge of the prescribed therapeutic regimen will improve Outcome: Progressing Problem: Health Behavior: Goal: Ability to state signs and symptoms to report to health care provider will improve Outcome: Progressing Problem: Physical Regulation: Goal: Ability to maintain clinical measurements within normal limits will improve Outcome: Progressing Problem: Infection Risk: Goal: Will remain free from infection Outcome: Progressing Problem: Safety: Goal: Ability to remain free from injury will improve Outcome: Progressing Goal: Will remain free from falls Outcome: Progressing Problem: Self-Care: Goal: Ability to participate in self-care as condition permits will improve Outcome: Progressing Problem: Sensory: Goal: Pain level will decrease Outcome: Progressing Goal: Ability to develop a pain control plan will improve Outcome: Progressing Problem: Skin Integrity: Goal: Risk for impaired skin integrity will decrease Outcome: Progressing Problem: Tissue Perfusion: Goal: Risk factors for ineffective tissue perfusion will decrease Outcome: Progressing Problem: Activity: Goal: Mobility will improve Outcome: Progressing Problem: Lack of Knowledge: Goal: Understanding of ways to prevent future skin breakdown will improve Outcome: Progressing Goal: Ability to identify appropriate dietary choices will improve Outcome: Progressing Problem: Nutritional: Goal: Dietary intake will improve Outcome: Progressing Goal: Ability to maintain a balanced intake and output will improve Outcome: Progressing ANY LAUNDRY WORKER * ACP (Advance Care Planning) - Linda Ford MSW - 06/21/2023 2:19 PM CST Advance Care Planning Advance Care Planning Conversation The patient and/or family consented to a voluntary Advance Care Planning conversation. 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 Social work met with patient at bedside and provided information on AD/DPOA. Social work reported notary services are available. Patient expressed understanding and declined AD/DPOA assistance at this time. Patient verbally designated mother, Meron Blankenship ([phone]) as surrogate decision maker. Outcome of the conversation and documents completed (select all that apply): provided information about Advance Directives and Durable Power of Manager Pediatric documentation The services provided in this conversation and described in this note are non- billable and to be used for ongoing clinical care only. Linda Ford LMSW [employer] * Assessment & Plan Note - Joaquín Abarca MD - 06/21/2023 7:57 AM [employer] Associated Problem(s): HTN (hypertension) BP stable at present. Recommend discontinuation of the diltiazem and continue amlodipine (as opposed to giving two calcium channel blockers) [employer] * Subjective & Objective - Joaquín Abacra MD - 06/21/2023 7:55 AM [employer] Cardiology Daily Progress Note Patient Name: Eriberto Chau Provider: Joaquín Abarca MD : 1990 Date of Service: 06/21/2023 CHIEF COMPLAINT: Hypertension SUBJECTIVE: No complaints of chest pain or sob MEDICATIONS: acetaminophen, 1,000 mg, oral, Q6H SUSAN amLODIPine, 10 mg, oral, Daily captopriL, 50 mg, oral, TID carvediloL, 37.5 mg, oral, BID with meals (bkfst, dinner) cloNIDine, 0.1 mg, oral, BID docusate sodium, 100 mg, oral, BID enoxaparin, 40 mg, subcutaneous, Daily-2100 gabapentin, 300 mg, oral, TID hydrALAZINE, 100 mg, oral, TID lidocaine, 2 patch, transdermal, Q24H methocarbamoL, 750 mg, oral, QID polyethylene glycol, 17 g, oral, BID QUEtiapine, 50 mg, oral, Nightly senna, 1 tablet, oral, BID spironolactone, 25 mg, oral, Daily tamsulosin, 0.4 mg, oral, Daily with dinner REVIEW OF SYSTEMS: General: No fever, chills, malaise or fatigue Eyes: No alterations in visual acuity ENT: No alterations in auditory acuity, no sore throat Pulmonary: No dyspnea, cough or hemoptysis Cardiac: No chest pain, orthopnea, PND or palpitations GI: No nausea, vomiting, diarrhea or constipation PHYSICAL EXAM: Vitals: 06/21/23 0400 06/21/23 0500 06/21/23 0600 06/21/23 0700 BP: 116/54 111/61 120/68 BP Location: Right arm Right arm Right arm Patient Position: Lying Lying Lying Pulse: 76 75 74 81 Resp: 16 19 17 14 Temp: TempSrc: SpO2: 96% 96% 96% 99% Weight: Height: Intake/Output Summary (Last 24 hours) at 06/21/2023 0755 Last data filed at 06/21/2023 0700 Gross per 24 hour Intake 669 ml Output 1460 ml Net -791 ml General: Well appearing, No pain or distress, well nourished Eyes: BERNARDO/EOMI, Conjuctiva Clear Neck: Supple, no thyromegaly, no adenopathy Respiratory: Clear to ausculation bilaterally; Cardiovascular: Normal PMI, RRR, normal S1 and S2. No S3 or S4. No murmers or rubs. Gastrointestinal: soft, non-tender abdomen, no HSM, no masses, Extremities: no cyanosis or clubbing or edema Musculoskeletal: no obvious joint deformities Skin: no obvious rash or bruising Psychiatric: normal affect Neurologic: awake/alert LAB/RADIOLOGY/DIAGNOSTIC REVIEW: Recent Labs Lab Units 06/21/23 0401 06/20/23 0022 06/18/23 2352 HEMOGLOBIN g/dL 8.8* 8.6* 8.5* HEMATOCRIT % 27.8* 27.5* 27.0* WBC K/cumm 7.3 9.0 9.6 PLATELETS K/cumm 477* 467* 422* Recent Labs Lab Units 06/21/23 0401 06/20/23 0022 06/18/23 2352 SODIUM mmol/L 135 136 138 POTASSIUM PLASMA mmol/L 4.1 4.1 3.7 CHLORIDE mmol/L 99 100 104 CO2 mmol/L 25 25 23 ANIONGAP mmol/L 11 11 11 GLUCOSE mg/dL 98 135 128 BUN SERUM mg/dL 17 16 17 CREATININE mg/dL 0.87 0.86 0.94 CALCIUM mg/dL 9.8 9.1 8.4* ALBUMIN g/dL 3.7 3.3* 3.1* ALK PHOS Units/L 90 84 81 ALT Units/L 10 12 12 AST Units/L 11 11 12 BILIRUBIN TOTAL mg/dL 0.3 0.3 0.3 Telemetry my personal review: sinus rhythm [employer] * Plan of Care - Priscilla Forbes RN - 06/21/2023 4:19 AM CST Problem: Health Behavior: Goal: Understanding [...] pain management regimen will improve Outcome: Progressing Problem: Sensory: Goal: Ability to identify factors that increase the pain will improve Outcome: Progressing Goal: Pain level will decrease Outcome: Progressing Problem: Activity: Goal: Ability to return to normal activity level will improve Outcome: Progressing Problem: Lack of Knowledge: Goal: Knowledge of the prescribed therapeutic regimen will improve Outcome: Progressing Problem: Coping: Goal: Ability to cope will improve Outcome: Progressing Problem: Health Behavior: Goal: Identification of resources available to assist in meeting health care needs will improve Outcome: Progressing Problem: Sensory: Goal: Pain level will decrease Outcome: Progressing Problem: Activity: Goal: Ability to tolerate increased activity will improve Outcome: Progressing Problem: Cardiac: Goal: Hemodynamic stability will improve Outcome: Progressing Goal: Complications related to the disease process, condition or treatment will be avoided or minimized Outcome: Progressing Goal: Cerebral tissue perfusion will improve Outcome: Progressing Problem: Lack of Knowledge: Goal: Knowledge of disease or condition will improve Outcome: Progressing Goal: Knowledge of the prescribed therapeutic regimen will improve Outcome: Progressing Problem: Coping: Goal: Ability to identify and develop effective coping behavior will improve Outcome: Progressing Problem: Health Behavior: Goal: Identification of resources available to assist in meeting health care needs will improve Outcome: Progressing Problem: Nutritional: Goal: Ability to identify appropriate dietary choices will improve Outcome: Progressing Problem: Lack of Knowledge: Goal: Ability to state ways to decrease the risk of falls will improve Outcome: Progressing Problem: Safety: Goal: Will remain free from falls Outcome: Progressing Goal: Will remain free from injury from falls Outcome: Progressing Goal: Will remain free from falls and injury in home environment Outcome: Progressing Problem: Activity: Goal: Risk for activity intolerance will decrease Outcome: Progressing Problem: Lack of Knowledge: Goal: Knowledge of diagnostic tests will improve Outcome: Progressing Goal: Knowledge of disease or condition will improve Outcome: Progressing Goal: Knowledge of safety precautions will improve Outcome: Progressing Goal: Knowledge of the prescribed therapeutic regimen will improve Outcome: Progressing Problem: Health Behavior: Goal: Ability to state signs and symptoms to report to health care provider will improve Outcome: Progressing Problem: Physical Regulation: Goal: Ability to maintain clinical measurements within normal limits will improve Outcome: Progressing Problem: Infection Risk: Goal: Will remain free from infection Outcome: Progressing Problem: Safety: Goal: Ability to remain free from injury will improve Outcome: Progressing Goal: Will remain free from falls Outcome: Progressing Problem: Self-Care: Goal: Ability to participate in self-care as condition permits will improve Outcome: Progressing Problem: Sensory: Goal: Pain level will decrease Outcome: Progressing Goal: Ability to develop a pain control plan will improve Outcome: Progressing Problem: Skin Integrity: Goal: Risk for impaired skin integrity will decrease Outcome: Progressing Problem: Tissue Perfusion: Goal: Risk factors for ineffective tissue perfusion will decrease Outcome: Progressing Problem: Activity: Goal: Mobility will improve Outcome: Progressing Problem: Lack of Knowledge: Goal: Understanding of ways to prevent future skin breakdown will improve Outcome: Progressing Goal: Ability to identify appropriate dietary choices will improve Outcome: Progressing Problem: Nutritional: Goal: Dietary intake will improve Outcome: Progressing Goal: Ability to maintain a balanced intake and output will improve Outcome: Progressing [employer] * Assessment & Plan Note - Joaquín Abarca MD - 06/20/2023 8:33 PM [employer] Associated Problem(s): HTN (hypertension) BP improving. Recommend continue medications and follow up bp, except recommend discontinuation of the diltiazem as he is already on a calcium channel louie, amlodipine [employer] * Subjective & Objective - Joaquín Abarca MD - 06/20/2023 8:30 PM [employer] Cardiology/Aortopathy Consult Daily Progress Note Patient Name: Eriberto Chau Provider: Joaquín Abarca MD : 1990 Date of Service: 06/20/2023 CHIEF COMPLAINT: Hypertension SUBJECTIVE: Pt denies any chest pain or shortness of breath. The chronic low back back has not worsened. He wasinitiated on clonidine and remains on diltiazem. MEDICATIONS: acetaminophen, 1,000 mg, oral, Q6H SUSAN amLODIPine, 10 mg, oral, Daily captopriL, 50 mg, oral, TID carvediloL, 37.5 mg, oral, BID with meals (bkfst, dinner) cloNIDine, 0.1 mg, oral, BID dilTIAZem, 30 mg, oral, Q6H docusate sodium, 100 mg, oral, BID enoxaparin, 40 mg, subcutaneous, Daily-2100 gabapentin, 300 mg, oral, TID hydrALAZINE, 100 mg, oral, TID lidocaine, 2 patch, transdermal, Q24H methocarbamoL, 750 mg, oral, QID polyethylene glycol, 17 g, oral, BID QUEtiapine, 50 mg, oral, Nightly senna, 1 tablet, oral, BID spironolactone, 25 mg, oral, Daily tamsulosin, 0.4 mg, oral, Daily with dinner REVIEW OF SYSTEMS: General: No fever, chills, malaise or fatigue Eyes: No alterations in visual acuity ENT: No alterations in auditory acuity, no sore throat Pulmonary: No dyspnea, cough or hemoptysis Cardiac: No chest pain, orthopnea, PND or palpitations GI: No nausea, vomiting, diarrhea or constipation Musculoskeletal: +low back pain Skin: no rashes Neuro: No headaches Endocrine: No cold or heat intolerance Heme: no excessive bleeding or bruising PHYSICAL EXAM: Vitals: 06/20/23 1600 06/20/23 1700 06/20/23 1800 06/20/23 1900 BP: 124/62 138/53 120/55 122/49 BP Location: Patient Position: Pulse: 81 73 83 74 Resp: 21 9 13 9 Temp: 36.8 ??C (98.2 ??F) TempSrc: Oral SpO2: 95% 98% 98% 98% Weight: Height: Intake/Output Summary (Last 24 hours) at 06/20/20232029 Last data filed at 06/20/2023 1900 Gross per 24 hour Intake 269 ml Output 1735 ml Net -1466 ml General: Well appearing, No pain or distress, well nourished Eyes: BERNARDO/EOMI, Conjuctiva Clear Neck: Supple, no thyromegaly, no adenopathy Respiratory: Clear to ausculation bilaterally; no wheezing/rales/rhonchi; respirations nonlabored Cardiovascular: Normal PMI, RRR, normal S1 and S2. No S3 or S4. No murmers or rubs. Gastrointestinal: soft, non-tender abdomen, no HSM, no masses, Abdominal aortic pulsation not enlarged. Extremities: no cyanosis or clubbing or edema Musculoskeletal: no obvious joint deformities Skin: no obvious rash or bruising Psychiatric: normal affect Neurologic: awake/alert, LAB/RADIOLOGY/DIAGNOSTIC REVIEW: Recent Labs Lab Units 06/20/232106/18/23235106/18/23 0304 HEMOGLOBIN g/dL 8.6* 8.5* 13.2 HEMATOCRIT % 27.5* 27.0* 40.9 WBC K/cumm 9.0 9.6 6.4 PLATELETS K/cumm 467* 422* 328 Recent Labs Lab Units 06/20/232106/18/23235106/18/23 0304 SODIUM mmol/L 136 138 136 POTASSIUM PLASMA mmol/L 4.1 3.7 4.3 CHLORIDE mmol/L 100 104 104 CO2 mmol/L 25 23 21* ANIONGAP mmol/L 11 11 11 GLUCOSE mg/dL 135 128 113 BUN SERUM mg/dL 16 17 13 CREATININE mg/dL 0.86 0.94 0.84 CALCIUM mg/dL 9.1 8.4* 8.5 ALBUMIN g/dL 3.3* 3.1* 2.8* ALK PHOS Units/L 84 81 87 ALT Units/L 12 12 18 AST Units/L 11 12 34 BILIRUBIN TOTAL mg/dL 0.3 0.3 0.2 Telemetry my personal review: sinus rhythm. : [employer] * Plan of Care - Martita Martinez RN - 06/20/2023 5:17 AM CST Goals: Clinical Goals for the Shift: hemodynamic stability, sbp <140, pain management, sleep + pulmonary hyiene, i&o's, labs, attempt to wear niv for gaurav overnight Summary: all care per chart + mar Problem: Health Behavior: Goal: Understanding of discharge [...] pain management regimen will improve Outcome: Progressing Problem: Sensory: Goal: Ability to identify factors that increase the pain will improve Outcome: Progressing Goal: Pain level will decrease Outcome: Progressing Problem: Lack of Knowledge: Goal: Knowledge of the prescribed therapeutic regimen will improve Outcome: Progressing Problem: Coping: Goal: Ability to cope will improve Outcome: Progressing [employer] * Plan of Care - Rafiq Lazcano RN - 06/19/2023 4:43 PM [employer] Goals: Clinical Goals for the Shift: Maintain BP goals & optimize pain control Summary: Pt's BP controlled with PO meds throughout the day. Pt still requiring frequent PRN analgesics for pain management. [employer] * Plan of Care - Martita Martinez RN - 06/18/2023 8:31 PM CST Problem: Health Behavior: Goal: Understanding of discharge needs will improve 06/18/20232030 by Martita Martinez RN Outcome: Progressing 06/18/2023 0644 by Martita Martinez RN Outcome: Progressing Problem: Lack of Knowledge: Goal: Ability to develop a pain control plan will improve 06/18/20232030 by Martita Martinez RN Outcome: Progressing 06/18/2023 0644 by Martita Martinez RN Outcome: Progressing Goal: Ability to identify pain intensity on a pain scale and rate it consistently will improve 06/18/20232030 by Martita Martinez RN Outcome: Progressing 06/18/2023 0644 by Martita Martinez RN Outcome: Progressing Goal: Ability to notify healthcare provider of pain before it becomes unmanageable or unbearable will improve 06/18/20232030 by Martita Martinez RN Outcome: Progressing 06/18/2023 0644 by Martita Martinez RN Outcome: Progressing Problem: Medication: Goal: Satisfaction with pain management regimen will improve 06/18/20232030 by Martita Martinez RN Outcome: Progressing 06/18/2023 0644 by Martita Martinez RN Outcome: Progressing Problem: Sensory: Goal: Ability to identify factors that increase the pain will improve 06/18/20232030 by Martita Martinez RN Outcome: Progressing 06/18/2023 0644 by Martita Martinez RN Outcome: Progressing Goal: Pain level will decrease Outcome: Progressing Problem: Lack of Knowledge: Goal: Knowledge of the prescribed therapeutic regimen will improve 06/18/20232030 by Martita Martinez RN Outcome: Progressing 06/18/2023 0644 by Martita Martinez RN Outcome: Progressing Problem: Coping: Goal: Ability to cope will improve 06/18/20232030 by Martita Martinez RN Outcome: Progressing 06/18/2023 0644 by Martita Martinez RN Outcome: Progressing Problem: Health Behavior: Goal: Identification of resources available to assist in meeting health care needs will improve Outcome: Progressing Problem: Sensory: Goal: Pain level will decrease 06/18/20232030 by Martita Martinez RN Outcome: Progressing 06/18/2023 0644 by Martita Martinez RN Outcome: Progressing Problem: Activity: Goal: Ability to tolerate increased activity will improve Outcome: Progressing Goals: Clinical Goals for the Shift: maintian bp goals, pain management, sleep + pulmonary hygiene, bath, labs Summary: all care per chart + mar [employer] * Plan of Care - Rafiq Lazcano RN - 06/18/2023 6:23 PM [employer] Goals: Clinical Goals for the Shift: Maintain BP goals & optimize pain control Summary: Pt has maintain BP goals with clevidipine infusion OFF this afternoon. Pt continues to request pain medication for lumbar back pain. Pt reports relief when given. Pt sat up in chair today. Remains on room air. [employer] * Assessment & Plan Note - Joaquín Abarca MD - 06/18/2023 8:00 AM [employer] Associated Problem(s): Dissection of aorta, unspecified portion of aorta (HCC) Aortic imaging stable on recent CT scan. Continue blood pressure control. [employer] * Assessment & Plan Note - Joaquín Abarca MD - 06/18/2023 7:59 AM [employer] Associated Problem(s): HTN (hypertension) Patient with continued hypertension. Blood pressure in the right arm levels are improved now in [id number] and 140s. Recommend consideration for adjustment of medications as follows. 1. Add spironolactone 25 mg a day 2. Consider adding clonidine 0.1 mg twice a day [employer] * Subjective & Objective - Joaquín Abarca MD - 06/18/2023 7:57 AM [employer] Cardiology Daily Progress Note Patient Name: Eriberto Chau Provider: Joaquín Abarca MD : 1990 Date of Service: 06/18/2023 CHIEF COMPLAINT: Hypertension SUBJECTIVE: Patient with blood pressure improved over the past 48 hours with variable readings depending upon whether be from the arterial line or from the blood pressure machine on his arms. He is currently back on IV calcium channel louie therapy for blood pressure. He denies any chest pain or upper back pain. He has chronic low back pain. Renal function stable. MEDICATIONS: amLODIPine, 10 mg, oral, Daily captopriL, 25 mg, oral, TID carvediloL, 37.5 mg, oral, BID with meals (bkfst, dinner) cefepime, 2,000 mg, intravenous, Q8H SUSAN dilTIAZem, 30 mg, oral, Q6H docusate sodium, 100 mg, oral, BID enoxaparin, 40 mg, subcutaneous, Daily-2100 gabapentin, 300 mg, oral, TID hydrALAZINE, 100 mg, oral, TID methocarbamoL, 750 mg, oral, QID polyethylene glycol, 17 g, oral, BID QUEtiapine, 50 mg, oral, Nightly senna, 1 tablet, oral, BID vancomycin, 15 mg/kg, intravenous, Q8H REVIEW OF SYSTEMS: General: No fever, chills, malaise or fatigue Eyes: No alterations in visual acuity ENT: No alterations in auditory acuity, no sore throat Pulmonary: No dyspnea, cough or hemoptysis Cardiac: No chest pain, orthopnea, PND or palpitations GI: No nausea, vomiting, diarrhea or constipation Musculoskeletal: Positive for low back pain. Skin: no rashes Neuro: No headaches Endocrine: No cold or heat intolerance Heme: no excessive bleeding or bruising PHYSICAL EXAM: Vitals: 06/18/23 0400 06/18/23 0500 06/18/23 0600 06/18/23 0700 BP: 132/59 143/65 138/63 158/66 BP Location: Right arm Right arm Right arm Patient Position: Lying Lying Lying Pulse: 81 85 86 82 Resp: 12 11 14 11 Temp: 37 ??C (98.6 ??F) TempSrc: Oral SpO2: 94% 92% 90% 94% Weight: Height: Intake/Output Summary (Last 24 hours) at 06/18/2023 0757 Last data filed at 06/18/2023 0700 Gross per 24 hour Intake 3161.4 ml Output 4125 ml Net -963.6 ml General: Well appearing, No pain or distress, well nourished Eyes: BERNARDO/EOMI, Conjuctiva Clear Neck: Supple, no thyromegaly, no adenopathy Respiratory: Clear to ausculation bilaterally; no wheezing/rales/rhonchi; respirations nonlabored Cardiovascular: Normal PMI, RRR, normal S1 and S2. No S3 or S4. No murmers or rubs. Carotid upstrokes brisk bilaterally and without bruits. Gastrointestinal: soft, non-tender abdomen, no HSM, no masses, Extremities: no cyanosis or clubbing or edema Musculoskeletal: no obvious joint deformities Skin: no obvious rash or bruising Psychiatric: normal affect Neurologic: awake/alert LAB/RADIOLOGY/DIAGNOSTIC REVIEW: Recent Labs Lab Units 06/18/23 0304 06/17/23 0000 06/16/23 0000 HEMOGLOBIN g/dL 13.2 9.4* 9.7* HEMATOCRIT % 40.9 29.2* 29.9* WBC K/cumm 6.4 11.3* 9.6 PLATELETS K/cumm 328 470* 490* Recent Labs Lab Units 06/18/23 0304 06/17/23 0855 06/17/23 0000 06/16/23 0000 SODIUM mmol/L 136 -- 138 138 POTASSIUM PLASMA mmol/L 4.3 -- 3.7 3.0* CHLORIDE mmol/L 104 -- 107 105 CO2 mmol/L 21* -- 21* 23 ANIONGAP mmol/L 11 -- 10 10 GLUCOSE mg/dL 113 -- 117 127 POC GLUCOSE MONITOR -- < > -- -- BUN SERUM mg/dL 13 -- 7 9 CREATININE mg/dL 0.84 -- 0.71* 0.96 CALCIUM mg/dL 8.5 -- 8.3* 9.0 ALBUMIN g/dL 2.8* -- 3.2* 3.4* ALK PHOS Units/L 87 -- 92 92 ALT Units/L 18 -- 14 11 AST Units/L 34 -- 14 10 BILIRUBIN TOTAL mg/dL 0.2 -- 0.2 0.2 < > = values in this interval not displayed. XR Chest 1 View Result Date: 06/17/2023 Comparison 06/13/2023. 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 Heart size remains within normal limits. Cardiomediastinal silhouette stable. New focal right upper lung opacity may represent atelectasis. Attention on follow-up examination recommended. The left lung is clear. No pneumothorax or pleural effusion seen. Electronically signed by: James Alvarado M.D. Telemetry my personal review: Sinus rhythm Labs reviewed as above albumin 2.8 liver function tests normal creatinine 0.84 potassium 4.3 [employer] * Plan of Care - Martita Martinez RN - 06/18/2023 6:45 AM CST Goals: Clinical Goals for the Shift: systolic less than 140, pain management, sleep + pulmonary hygiene Summary: all care per chart + MAR Problem: Health Behavior: Goal: Understanding of discharge [...] pain management regimen will improve Outcome: Progressing Problem: Sensory: Goal: Ability to identify factors that increase the pain will improve Outcome: Progressing Goal: Pain level will decrease Outcome: Progressing Problem: Lack of Knowledge: Goal: Knowledge of the prescribed therapeutic regimen will improve Outcome: Progressing Problem: Coping: Goal: Ability to cope will improve Outcome: Progressing Problem: Sensory: Goal: Pain level will decrease Outcome: Progressing Problem: Activity: Goal: Ability to tolerate increased activity will improve Outcome: Progressing [employer] * Plan of Care - Rafiq Lazcano RN - 06/17/2023 6:27 PM [employer] Goals: Clinical Goals for the Shift: Maintain BP goals & pt comfort Summary: Pt weaned off clevidipine infusion today. Titrating to cuff BP. Pt placed back room air. Pt was up to chair this afternoon. Pt still reporting back pain, but improved today with increased pain regimen. [employer] * Plan of Care - Mateo Bertrand RN - 06/17/2023 3:05 AM CST Problem: Health Behavior: Goal: Understanding [...] pain management regimen will improve Outcome: Progressing Problem: Sensory: Goal: Ability to identify factors that increase the pain will improve Outcome: Progressing Goal: Pain level will decrease Outcome: Progressing Problem: Activity: Goal: Ability to return to normal activity level will improve Outcome: Progressing Problem: Lack of Knowledge: Goal: Knowledge of the prescribed therapeutic regimen will improve Outcome: Progressing Problem: Coping: Goal: Ability to cope will improve Outcome: Progressing Problem: Health Behavior: Goal: Identification of resources available to assist in meeting health care needs will improve Outcome: Progressing Problem: Sensory: Goal: Pain level will decrease Outcome: Progressing Problem: Activity: Goal: Ability to tolerate increased activity will improve Outcome: Progressing Problem: Cardiac: Goal: Hemodynamic stability will improve Outcome: Progressing Goal: Complications related to the disease process, condition or treatment will be avoided or minimized Outcome: Progressing Goal: Cerebral tissue perfusion will improve Outcome: Progressing Problem: Lack of Knowledge: Goal: Knowledge of disease or condition will improve Outcome: Progressing Goal: Knowledge of the prescribed therapeutic regimen will improve Outcome: Progressing Problem: Coping: Goal: Ability to identify and develop effective coping behavior will improve Outcome: Progressing Problem: Health Behavior: Goal: Identification of resources available to assist in meeting health care needs will improve Outcome: Progressing Problem: Nutritional: Goal: Ability to identify appropriate dietary choices will improve Outcome: Progressing Problem: Lack of Knowledge: Goal: Ability to state ways to decrease the risk of falls will improve Outcome: Progressing Problem: Safety: Goal: Will remain free from falls Outcome: Progressing Goal: Will remain free from injury from falls Outcome: Progressing Goal: Will remain free from falls and injury in home environment Outcome: Progressing Problem: Activity: Goal: Risk for activity intolerance will decrease Outcome: Progressing Problem: Lack of Knowledge: Goal: Knowledge of diagnostic tests will improve Outcome: Progressing Goal: Knowledge of disease or condition will improve Outcome: Progressing Goal: Knowledge of safety precautions will improve Outcome: Progressing Goal: Knowledge of the prescribed therapeutic regimen will improve Outcome: Progressing Problem: Health Behavior: Goal: Ability to state signs and symptoms to report to health care provider will improve Outcome: Progressing Problem: Physical Regulation: Goal: Ability to maintain clinical measurements within normal limits will improve Outcome: Progressing Problem: Infection Risk: Goal: Will remain free from infection Outcome: Progressing Problem: Safety: Goal: Ability to remain free from injury will improve Outcome: Progressing Goal: Will remain free from falls Outcome: Progressing Problem: Self-Care: Goal: Ability to participate in self-care as condition permits will improve Outcome: Progressing Problem: Sensory: Goal: Pain level will decrease Outcome: Progressing Goal: Ability to develop a pain control plan will improve Outcome: Progressing Problem: Skin Integrity: Goal: Risk for impaired skin integrity will decrease Outcome: Progressing Problem: Tissue Perfusion: Goal: Risk factors for ineffective tissue perfusion will decrease Outcome: Progressing Problem: Activity: Goal: Mobility will improve Outcome: Progressing Problem: Lack of Knowledge: Goal: Understanding of ways to prevent future skin breakdown will improve Outcome: Progressing Goal: Ability to identify appropriate dietary choices will improve Outcome: Progressing Problem: Nutritional: Goal: Dietary intake will improve Outcome: Progressing Goal: Ability to maintain a balanced intake and output will improve Outcome: Progressing Goals: Clinical Goals for the Shift: hemodynamic stability, pain management, pulmonary hygiene, monitor I/Os and maintain pt safety Summary: Plan of care reviewed with the patient. 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 MRI did not demonstrate evidence of spinal infection. Blood cultures NGTD so far, no fever, no infectious symptoms other than chills. Overall, low suspicion for infectious process. Continue to follow blood cultures. Okay to stop Abx once cultures negative. Please contact us if you have further concerns. Anil Sanchez MD Critical Care Fellow ANY LAUNDRY WORKER * Plan of Care - Roge Tolbert RN - 06/16/2023 8:46 AM CST Problem: Health Behavior: Goal: Understanding [...] pain management regimen will improve Outcome: Progressing Problem: Sensory: Goal: Ability to identify factors that increase the pain will improve Outcome: Progressing Goal: Pain level will decrease Outcome: Progressing Problem: Activity: Goal: Ability to return to normal activity level will improve Outcome: Progressing Problem: Lack of Knowledge: Goal: Knowledge of the prescribed therapeutic regimen will improve Outcome: Progressing Problem: Coping: Goal: Ability to cope will improve Outcome: Progressing Problem: Health Behavior: Goal: Identification of resources available to assist in meeting health care needs will improve Outcome: Progressing Problem: Sensory: Goal: Pain level will decrease Outcome: Progressing Problem: Activity: Goal: Ability to tolerate increased activity will improve Outcome: Progressing Problem: Cardiac: Goal: Hemodynamic stability will improve Outcome: Progressing Goal: Complications related to the disease process, condition or treatment will be avoided or minimized Outcome: Progressing Goal: Cerebral tissue perfusion will improve Outcome: Progressing Problem: Lack of Knowledge: Goal: Knowledge of disease or condition will improve Outcome: Progressing Goal: Knowledge of the prescribed therapeutic regimen will improve Outcome: Progressing Problem: Coping: Goal: Ability to identify and develop effective coping behavior will improve Outcome: Progressing Problem: Health Behavior: Goal: Identification of resources available to assist in meeting health care needs will improve Outcome: Progressing Problem: Nutritional: Goal: Ability to identify appropriate dietary choices will improve Outcome: Progressing Problem: Lack of Knowledge: Goal: Ability to state ways to decrease the risk of falls will improve Outcome: Progressing Problem: Safety: Goal: Will remain free from falls Outcome: Progressing Goal: Will remain free from injury from falls Outcome: Progressing Goal: Will remain free from falls and injury in home environment Outcome: Progressing Problem: Activity: Goal: Risk for activity intolerance will decrease Outcome: Progressing Problem: Lack of Knowledge: Goal: Knowledge of diagnostic tests will improve Outcome: Progressing Goal: Knowledge of disease or condition will improve Outcome: Progressing Goal: Knowledge of safety precautions will improve Outcome: Progressing Goal: Knowledge of the prescribed therapeutic regimen will improve Outcome: Progressing Problem: Health Behavior: Goal: Ability to state signs and symptoms to report to health care provider will improve Outcome: Progressing Problem: Physical Regulation: Goal: Ability to maintain clinical measurements within normal limits will improve Outcome: Progressing Problem: Infection Risk: Goal: Will remain free from infection Outcome: Progressing Problem: Safety: Goal: Ability to remain free from injury will improve Outcome: Progressing Goal: Will remain free from falls Outcome: Progressing Problem: Self-Care: Goal: Ability to participate in self-care as condition permits will improve Outcome: Progressing Problem: Sensory: Goal: Pain level will decrease Outcome: Progressing Goal: Ability to develop a pain control plan will improve Outcome: Progressing Problem: Skin Integrity: Goal: Risk for impaired skin integrity will decrease Outcome: Progressing Problem: Tissue Perfusion: Goal: Risk factors for ineffective tissue perfusion will decrease Outcome: Progressing Problem: Activity: Goal: Mobility will improve Outcome: Progressing Problem: Lack of Knowledge: Goal: Understanding of ways to prevent future skin breakdown will improve Outcome: Progressing Goal: Ability to identify appropriate dietary choices will improve Outcome: Progressing Problem: Nutritional: Goal: Dietary intake will improve Outcome: Progressing Goal: Ability to maintain a balanced intake and output will improve Outcome: Progressing Goals: Clinical Goals for the Shift: SBP 120-140, pain control Summary: ANY LAUNDRY WORKER * Plan of Dalton Sharp RN - 06/16/2023 4:16 AM CST Problem: Health Behavior: Goal: Understanding [...] pain management regimen will improve Outcome: Progressing Problem: Sensory: Goal: Ability to identify factors that increase the pain will improve Outcome: Progressing Goal: Pain level will decrease Outcome: Progressing Problem: Activity: Goal: Ability to return to normal activity level will improve Outcome: Progressing Problem: Lack of Knowledge: Goal: Knowledge of the prescribed therapeutic regimen will improve Outcome: Progressing Problem: Coping: Goal: Ability to cope will improve Outcome: Progressing Problem: Health Behavior: Goal: Identification of resources available to assist in meeting health care needs will improve Outcome: Progressing Problem: Sensory: Goal: Pain level will decrease Outcome: Progressing Problem: Activity: Goal: Ability to tolerate increased activity will improve Outcome: Progressing Problem: Cardiac: Goal: Hemodynamic stability will improve Outcome: Progressing Goal: Complications related to the disease process, condition or treatment will be avoided or minimized Outcome: Progressing Goal: Cerebral tissue perfusion will improve Outcome: Progressing Problem: Lack of Knowledge: Goal: Knowledge of disease or condition will improve Outcome: Progressing Goal: Knowledge of the prescribed therapeutic regimen will improve Outcome: Progressing Problem: Coping: Goal: Ability to identify and develop effective coping behavior will improve Outcome: Progressing Problem: Health Behavior: Goal: Identification of resources available to assist in meeting health care needs will improve Outcome: Progressing Problem: Nutritional: Goal: Ability to identify appropriate dietary choices will improve Outcome: Progressing Problem: Lack of Knowledge: Goal: Ability to state ways to decrease the risk of falls will improve Outcome: Progressing Problem: Safety: Goal: Will remain free from falls Outcome: Progressing Goal: Will remain free from injury from falls Outcome: Progressing Goal: Will remain free from falls and injury in home environment Outcome: Progressing Problem: Activity: Goal: Risk for activity intolerance will decrease Outcome: Progressing Problem: Lack of Knowledge: Goal: Knowledge of diagnostic tests will improve Outcome: Progressing Goal: Knowledge of disease or condition will improve Outcome: Progressing Goal: Knowledge of safety precautions will improve Outcome: Progressing Goal: Knowledge of the prescribed therapeutic regimen will improve Outcome: Progressing Problem: Health Behavior: Goal: Ability to state signs and symptoms to report to health care provider will improve Outcome: Progressing Problem: Physical Regulation: Goal: Ability to maintain clinical measurements within normal limits will improve Outcome: Progressing Problem: Infection Risk: Goal: Will remain free from infection Outcome: Progressing Problem: Safety: Goal: Ability to remain free from injury will improve Outcome: Progressing Goal: Will remain free from falls Outcome: Progressing Problem: Self-Care: Goal: Ability to participate in self-care as condition permits will improve Outcome: Progressing Problem: Sensory: Goal: Pain level will decrease Outcome: Progressing Goal: Ability to develop a pain control plan will improve Outcome: Progressing Problem: Skin Integrity: Goal: Risk for impaired skin integrity will decrease Outcome: Progressing Problem: Tissue Perfusion: Goal: Risk factors for ineffective tissue perfusion will decrease Outcome: Progressing Problem: Activity: Goal: Mobility will improve Outcome: Progressing Problem: Lack of Knowledge: Goal: Understanding of ways to prevent future skin breakdown will improve Outcome: Progressing Goal: Ability to identify appropriate dietary choices will improve Outcome: Progressing Problem: Nutritional: Goal: Dietary intake will improve Outcome: Progressing Goal: Ability to maintain a balanced intake and output will improve Outcome: Progressing Problem: Skin Integrity: Goal: Risk for impaired skin integrity will decrease Outcome: Progressing Goal: Ability to demonstrate warm and dry skin will improve Outcome: Progressing Goal: Circulation will improve to fullest extent possible Outcome: Progressing Goals: Clinical Goals for the Shift: hemodynamic stability, monitor I&O, monitor labs, sleep hygiene, pulm hygiene, pain control Summary: Patient is hemodynamically stable, slept well throughout the night, turned clevidipine up to 30, gave 2 doses of lebatolol. At 0330 took patient to MRI, started him on 0.2 of precidex and gave 1 mg of atavan. Pain is under control. ANY LAUNDRY WORKER * Initial Assessments - Gardenia Resendiz LCSW - 06/15/2023 3:16 PM CST Social Work Assessment Clinical Dx: Infrarenal abdominal aortic aneurysm, without rupture (HCC) Past Medical History: Date of last inpatient admission: Previous admit date: 06/03/2023 Number of inpatient admissions in past year: 4 Reason for Current Hospitalization (Pt/Caregiver Stated): hypertension (06/15/231511) Patient Information: Information Obtained From: Patient Marital Status: Life Partner Does Pt have Legal Guardian, Surrogate Decision Maker or Healthcare Agent? 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 He had 20 hours of short term disability through his employer, however he has used all his benefits. Current Transportation: Family/friends (06/15/231511) Legal History: Legal History Legal Information : No legal issues (06/15/231511) Support Systems and Spirituality: Support Systems and Spirituality Support System: Life partner, Other family members, Parent Life Partner Name/Contact Information: Geri Murilloa (SO/[phone]) Parent Name/Contact Information: Meron Blankenship (mother/[phone]) Other Family Member Name/Contact Information: Solange Ireland (mother of his children/[phone]) Do you have a Denominational Preference or Affiliation?: Yes Preference/Affiliation : Methodist Are there any Denominational Practices that are important to maintain while admitted?: No Do you have Cultural Factors that are important to you?: No (06/15/231511) Strengths, Assets, Liabilities and Stressors: Strengths, Assets, Liabilities, and Stressors Strengths (Must Choose Two): Assessment of patient optimism that change can occur, Managing surrounding demands and opportunities, Cultural/spiritual/christian and community involvement, Exercising self- direction, Access to housing/residential stability, Vocational interests, i.e., hobbies, Attempting to realize one's potential, Interpersonal relationships and supports,i.e., family, friends, peers, Setting and pursuing goals Patient Assets: Employed, Home, Insured, Use of Supports, Transportation, Supportive family Does Pt have access to Employee Assistance Program: No Patient Barriers : Poor physical health, Financial difficulties Current Stressors: Chronic illness, Loss of job/income, No income (06/15/231511) SDOH Transportation Needs: No Transportation Needs (06/15/2023) PRAPARE - Transportation Lack of Transportation (Medical): No Lack of Transportation (Non-Medical): No Financial Resource Strain: Medium Risk (06/15/2023) Overall Financial Resource Strain (CARDIA) Difficulty of Paying Living Expenses: Somewhat hard Housing Stability: Low Risk (06/15/2023) Housing Stability Vital Sign Unable to Pay for Housing in the Last Year: No Number of Places Lived in the Last Year: 1 Unstable Housing in the Last Year: No Social Connections: Moderately Integrated (06/15/2023) Social Connection and Isolation Panel [NHANES] Frequency of Communication with Friends and Family: More than three times a week Frequency of Social Gatherings with Friends and Family: More than three times a week Attends Denominational Services: More than 4 times per year Active Member of Clubs or Organizations: No Attends Club or Organization Meetings: Never Marital Status: Living with partner Recent Concern: Social Connections - Moderately Isolated (06/08/2023) Social Connection and Isolation Panel [NHANES] Frequency of Communication with Friends and Family: More than three times a week Frequency of Social Gatherings with Friends and Family: More than three times a week Attends Denominational Services: More than 4 times per year Active Member of Clubs or Organizations: No Attends Club or Organization Meetings: Never Marital Status: Never Food Insecurity: No Food Insecurity (06/15/2023) Hunger Vital Sign Worried About Running Out of Food in the Last Year: Never true Ran Out of Food in the Last Year: Never true Tobacco Use: Low Risk (06/13/2023) Patient History Smoking Tobacco Use: Never Smokeless Tobacco Use: Never Passive Exposure: Not on file Alcohol Use: Not on file PHQ Screening Over the last 2 weeks, how often have you been bothered by any of the following problems? Little Interest or Pleasure in Doing Things: Not at all Feeling Down, Depressed, or Hopeless: Not at all PHQ-2 Total Score (If total score is 3 or more points, staff should administer the PHQ-9): 0 Over the past 2 weeks, how often have you been bothered by any of the following problems? Little Interest or Pleasure in Doing Things: Not at all Feeling Down, Depressed, or Hopeless: Not at all PHQ-2 Total Score (If total score is 3 or more points, staff should administer the PHQ-9): 0 Current/Former Smokers - Passive Exposure Questions Responses Current/Former Smoker - passive exposure (e.g., household member smoking)? No Substance Abuse, Mental Health, and Trauma History: Chemical Dependency, Mental Health & Trauma History Chemical Dependency: No concerns noted Mental Health: No concerns noted (06/15/231511) Risk to Self and Others: Risk to Self and Others Violence risk to self in past 6 months? : No Self Harm/Suicidal Ideation Plan: No Previous Self Harm/Suicidal Attempts: No Violence risk to others in past 6 months? : No Any lifetime risk of violence to others? : No Current Plans to Harm Another: No (06/15/231511) Impressions and Recommendations: Mr. Chau is a 33 year old male with PMHx of HTN, chronic abdominal pain, mood disorder, and type B aortic dissection s/p TEVAR (thoracic branched endograft) 05/02/[address] Herrera and TEVAR (GORE c tag, Cook dissection stent) 06/05/[address] Samuel for an entry tear distal to prior stent with compromised true lumen. He presented to the ED with hypertension, lower back pain, left groin pain, fevers and chills. Social work consulted for high risk for readmission, 30 day readmit and 4 inpatient admissions in the past year. Patient was last admitted from 06/03/23-06/11/23 at [facility] for abdominal pain and discharged homewith no needs. Social work met with patient to discuss housing, utilities, food, transportation andsocial support. Patient lives with his SO Geri and their 7 children [address] [place] [address]. 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 He was able to utilize 20 hours of short term disability through his employer, however those benefits have now ended. He voiced concerns with bill paying for mortgage, food, and utilities. [facility], utility and food assistance. Patient had been accepted to [facility] for mortgage assistance. Patient stated he has not received a phone call from them for assistance. Per [place], they left two voicemails with patient's SO with no response. Social work reached back out to [facility] and provided them with patient's number as well as his SO number. Social work also reached back out to[facility], as they did not respond on previous admission. Social work will continue to assist asneeded. Patient does not have DPOA on file. Patient verbally appointed Meron Pattie (mother/[phone])to be his decision maker if he becomes unable. Predictive Model Details 29% (High Risk) Factor Value Calculated 06/15/2023 12:07 22% Number of active inpatient medication orders 42 Risk of Unplanned Readmission Model 15% Diagnosis of drug abuse present 13% Number of ED visits in last six months 3 7% Number of hospitalizations in last year 2 7% Active antipsychotic inpatient medication order present 7% ECG/EKG order present in last 6 months 6% Encounter of ten days or longer in last year present 5% Imaging order present in last 6 months 5% Latest hemoglobin low (9.9 g/dL) 5% Phosphorous result present 3% Active anticoagulant inpatient medication order present 2% Age 33 2% Future appointment scheduled 1% Current length of stay 1.873 days 1% Charlson Comorbidity Index 1 Gardenia Resendiz LCSW ANY LAUNDRY WORKER * Plan of Roge Paris RN - 06/15/2023 11:47 AM CST Problem: Health Behavior: Goal: Understanding [...] pain management regimen will improve Outcome: Progressing Problem: Sensory: Goal: Ability to identify factors that increase the pain will improve Outcome: Progressing Goal: Pain level will decrease Outcome: Progressing Problem: Activity: Goal: Ability to return to normal activity level will improve Outcome: Progressing Problem: Lack of Knowledge: Goal: Knowledge of the prescribed therapeutic regimen will improve Outcome: Progressing Problem: Coping: Goal: Ability to cope will improve Outcome: Progressing Problem: Health Behavior: Goal: Identification of resources available to assist in meeting health care needs will improve Outcome: Progressing Problem: Sensory: Goal: Pain level will decrease Outcome: Progressing Problem: Activity: Goal: Ability to tolerate increased activity will improve Outcome: Progressing Problem: Cardiac: Goal: Hemodynamic stability will improve Outcome: Progressing Goal: Complications related to the disease process, condition or treatment will be avoided or minimized Outcome: Progressing Goal: Cerebral tissue perfusion will improve Outcome: Progressing Problem: Lack of Knowledge: Goal: Knowledge of disease or condition will improve Outcome: Progressing Goal: Knowledge of the prescribed therapeutic regimen will improve Outcome: Progressing Problem: Coping: Goal: Ability to identify and develop effective coping behavior will improve Outcome: Progressing Problem: Health Behavior: Goal: Identification of resources available to assist in meeting health care needs will improve Outcome: Progressing Problem: Nutritional: Goal: Ability to identify appropriate dietary choices will improve Outcome: Progressing Problem: Lack of Knowledge: Goal: Ability to state ways to decrease the risk of falls will improve Outcome: Progressing Problem: Safety: Goal: Will remain free from falls Outcome: Progressing Goal: Will remain free from injury from falls Outcome: Progressing Goal: Will remain free from falls and injury in home environment Outcome: Progressing Problem: Activity: Goal: Risk for activity intolerance will decrease Outcome: Progressing Problem: Lack of Knowledge: Goal: Knowledge of diagnostic tests will improve Outcome: Progressing Goal: Knowledge of disease or condition will improve Outcome: Progressing Goal: Knowledge of safety precautions will improve Outcome: Progressing Goal: Knowledge of the prescribed therapeutic regimen will improve Outcome: Progressing Problem: Health Behavior: Goal: Ability to state signs and symptoms to report to health care provider will improve Outcome: Progressing Problem: Physical Regulation: Goal: Ability to maintain clinical measurements within normal limits will improve Outcome: Progressing Problem: Infection Risk: Goal: Will remain free from infection Outcome: Progressing Problem: Safety: Goal: Ability to remain free from injury will improve Outcome: Progressing Goal: Will remain free from falls Outcome: Progressing Problem: Self-Care: Goal: Ability to participate in self-care as condition permits will improve Outcome: Progressing Problem: Sensory: Goal: Pain level will decrease Outcome: Progressing Goal: Ability to develop a pain control plan will improve Outcome: Progressing Problem: Skin Integrity: Goal: Risk for impaired skin integrity will decrease Outcome: Progressing Problem: Tissue Perfusion: Goal: Risk factors for ineffective tissue perfusion will decrease Outcome: Progressing Problem: Activity: Goal: Mobility will improve Outcome: Progressing Problem: Lack of Knowledge: Goal: Understanding of ways to prevent future skin breakdown will improve Outcome: Progressing Goal: Ability to identify appropriate dietary choices will improve Outcome: Progressing Problem: Nutritional: Goal: Dietary intake will improve Outcome: Progressing Goal: Ability to maintain a balanced intake and output will improve Outcome: Progressing Goals: Clinical Goals for the Shift: hemodynamic stability, monitor I&O, monitor labs, sleep hygiene, pulm hygiene, pain control Summary: ANY LAUNDRY WORKER * Plan of Care - Dalton Rubio RN - 06/15/2023 3:42 AM CST Problem: Health Behavior: Goal: Understanding [...] pain management regimen will improve Outcome: Progressing Problem: Sensory: Goal: Ability to identify factors that increase the pain will improve Outcome: Progressing Goal: Pain level will decrease Outcome: Progressing Problem: Activity: Goal: Ability to return to normal activity level will improve Outcome: Progressing Problem: Lack of Knowledge: Goal: Knowledge of the prescribed therapeutic regimen will improve Outcome: Progressing Problem: Coping: Goal: Ability to cope will improve Outcome: Progressing Problem: Health Behavior: Goal: Identification of resources available to assist in meeting health care needs will improve Outcome: Progressing Problem: Sensory: Goal: Pain level will decrease Outcome: Progressing Problem: Activity: Goal: Ability to tolerate increased activity will improve Outcome: Progressing Problem: Cardiac: Goal: Hemodynamic stability will improve Outcome: Progressing Goal: Complications related to the disease process, condition or treatment will be avoided or minimized Outcome: Progressing Goal: Cerebral tissue perfusion will improve Outcome: Progressing Problem: Lack of Knowledge: Goal: Knowledge of disease or condition will improve Outcome: Progressing Goal: Knowledge of the prescribed therapeutic regimen will improve Outcome: Progressing Problem: Coping: Goal: Ability to identify and develop effective coping behavior will improve Outcome: Progressing Problem: Health Behavior: Goal: Identification of resources available to assist in meeting health care needs will improve Outcome: Progressing Problem: Nutritional: Goal: Ability to identify appropriate dietary choices will improve Outcome: Progressing Problem: Lack of Knowledge: Goal: Ability to state ways to decrease the risk of falls will improve Outcome: Progressing Problem: Safety: Goal: Will remain free from falls Outcome: Progressing Goal: Will remain free from injury from falls Outcome: Progressing Goal: Will remain free from falls and injury in home environment Outcome: Progressing Problem: Activity: Goal: Risk for activity intolerance will decrease Outcome: Progressing Problem: Lack of Knowledge: Goal: Knowledge of diagnostic tests will improve Outcome: Progressing Goal: Knowledge of disease or condition will improve Outcome: Progressing Goal: Knowledge of safety precautions will improve Outcome: Progressing Goal: Knowledge of the prescribed therapeutic regimen will improve Outcome: Progressing Problem: Health Behavior: Goal: Ability to state signs and symptoms to report to health care provider will improve Outcome: Progressing Problem: Physical Regulation: Goal: Ability to maintain clinical measurements within normal limits will improve Outcome: Progressing Problem: Infection Risk: Goal: Will remain free from infection Outcome: Progressing Problem: Safety: Goal: Ability to remain free from injury will improve Outcome: Progressing Goal: Will remain free from falls Outcome: Progressing Problem: Self-Care: Goal: Ability to participate in self-care as condition permits will improve Outcome: Progressing Problem: Sensory: Goal: Pain level will decrease Outcome: Progressing Goal: Ability to develop a pain control plan will improve Outcome: Progressing Problem: Skin Integrity: Goal: Risk for impaired skin integrity will decrease Outcome: Progressing Problem: Tissue Perfusion: Goal: Risk factors for ineffective tissue perfusion will decrease Outcome: Progressing Problem: Activity: Goal: Mobility will improve Outcome: Progressing Problem: Lack of Knowledge: Goal: Understanding of ways to prevent future skin breakdown will improve Outcome: Progressing Goal: Ability to identify appropriate dietary choices will improve Outcome: Progressing Problem: Nutritional: Goal: Dietary intake will improve Outcome: Progressing Goal: Ability to maintain a balanced intake and output will improve Outcome: Progressing Problem: Skin Integrity: Goal: Risk for impaired skin integrity will decrease Outcome: Progressing Goal: Ability to demonstrate warm and dry skin will improve Outcome: Progressing Goal: Circulation will improve to fullest extent possible Outcome: Progressing Goals: Clinical Goals for the Shift: hemodynamic stability, monitor I&O, monitor labs, sleep hygiene, pulm hygiene, pain control Summary: Patient had increased hypertension beginning around 1999, increased esmolol to 300 mg/hr, clevidipine to 18 mg/hr, and gave PRM labetalol. Patient BP returned to goal and I weaned clevidipine down to 14. Patient was hemodynamically stable the rest of the night. Gave patient a dose of atarax to decrease anxiety after increased hypertension was resolved. Patient slept well the rest of the night. NV status is intact, pain is under control. [employer] WORKER * Plan of Care - Roge Tolbert RN - 06/14/2023 10:51 AM CST Problem: Health Behavior: Goal: Understanding [...] pain management regimen will improve Outcome: Progressing Problem: Sensory: Goal: Ability to identify factors that increase the pain will improve Outcome: Progressing Goal: Pain level will decrease Outcome: Progressing Problem: Activity: Goal: Ability to return to normal activity level will improve Outcome: Progressing Problem: Lack of Knowledge: Goal: Knowledge of the prescribed therapeutic regimen will improve Outcome: Progressing Problem: Coping: Goal: Ability to cope will improve Outcome: Progressing Problem: Health Behavior: Goal: Identification of resources available to assist in meeting health care needs will improve Outcome: Progressing Problem: Sensory: Goal: Pain level will decrease Outcome: Progressing Problem: Activity: Goal: Ability to tolerate increased activity will improve Outcome: Progressing Problem: Cardiac: Goal: Hemodynamic stability will improve Outcome: Progressing Goal: Complications related to the disease process, condition or treatment will be avoided or minimized Outcome: Progressing Goal: Cerebral tissue perfusion will improve Outcome: Progressing Problem: Lack of Knowledge: Goal: Knowledge of disease or condition will improve Outcome: Progressing Goal: Knowledge of the prescribed therapeutic regimen will improve Outcome: Progressing Problem: Coping: Goal: Ability to identify and develop effective coping behavior will improve Outcome: Progressing Problem: Health Behavior: Goal: Identification of resources available to assist in meeting health care needs will improve Outcome: Progressing Problem: Nutritional: Goal: Ability to identify appropriate dietary choices will improve Outcome: Progressing Problem: Lack of Knowledge: Goal: Ability to state ways to decrease the risk of falls will improve Outcome: Progressing Problem: Safety: Goal: Will remain free from falls Outcome: Progressing Goal: Will remain free from injury from falls Outcome: Progressing Goal: Will remain free from falls and injury in home environment Outcome: Progressing Problem: Activity: Goal: Risk for activity intolerance will decrease Outcome: Progressing Problem: Lack of Knowledge: Goal: Knowledge of diagnostic tests will improve Outcome: Progressing Goal: Knowledge of disease or condition will improve Outcome: Progressing Goal: Knowledge of safety precautions will improve Outcome: Progressing Goal: Knowledge of the prescribed therapeutic regimen will improve Outcome: Progressing Problem: Health Behavior: Goal: Ability to state signs and symptoms to report to health care provider will improve Outcome: Progressing Problem: Physical Regulation: Goal: Ability to maintain clinical measurements within normal limits will improve Outcome: Progressing Problem: Infection Risk: Goal: Will remain free from infection Outcome: Progressing Problem: Safety: Goal: Ability to remain free from injury will improve Outcome: Progressing Goal: Will remain free from falls Outcome: Progressing Problem: Self-Care: Goal: Ability to participate in self-care as condition permits will improve Outcome: Progressing Problem: Sensory: Goal: Pain level will decrease Outcome: Progressing Goal: Ability to develop a pain control plan will improve Outcome: Progressing Problem: Skin Integrity: Goal: Risk for impaired skin integrity will decrease Outcome: Progressing Problem: Tissue Perfusion: Goal: Risk factors for ineffective tissue perfusion will decrease Outcome: Progressing Problem: Activity: Goal: Mobility will improve Outcome: Progressing Problem: Lack of Knowledge: Goal: Understanding of ways to prevent future skin breakdown will improve Outcome: Progressing Goal: Ability to identify appropriate dietary choices will improve Outcome: Progressing Problem: Nutritional: Goal: Dietary intake will improve Outcome: Progressing Goal: Ability to maintain a balanced intake and output will improve Outcome: Progressing Goals: Clinical Goals for the Shift: Control hemodynamics,pain control,mobility Summary: [employer] WORKER * Plan of Dalton Sharp RN - 06/14/2023 3:05 AM CST Problem: Health Behavior: Goal: Understanding [...] pain management regimen will improve Outcome: Progressing Problem: Sensory: Goal: Ability to identify factors that increase the pain will improve Outcome: Progressing Goal: Pain level will decrease Outcome: Progressing Problem: Activity: Goal: Ability to return to normal activity level will improve Outcome: Progressing Problem: Lack of Knowledge: Goal: Knowledge of the prescribed therapeutic regimen will improve Outcome: Progressing Problem: Coping: Goal: Ability to cope will improve Outcome: Progressing Problem: Health Behavior: Goal: Identification of resources available to assist in meeting health care needs will improve Outcome: Progressing Problem: Sensory: Goal: Pain level will decrease Outcome: Progressing Problem: Activity: Goal: Ability to tolerate increased activity will improve Outcome: Progressing Problem: Cardiac: Goal: Hemodynamic stability will improve Outcome: Progressing Goal: Complications related to the disease process, condition or treatment will be avoided or minimized Outcome: Progressing Goal: Cerebral tissue perfusion will improve Outcome: Progressing Problem: Lack of Knowledge: Goal: Knowledge of disease or condition will improve Outcome: Progressing Goal: Knowledge of the prescribed therapeutic regimen will improve Outcome: Progressing Problem: Coping: Goal: Ability to identify and develop effective coping behavior will improve Outcome: Progressing Problem: Health Behavior: Goal: Identification of resources available to assist in meeting health care needs will improve Outcome: Progressing Problem: Nutritional: Goal: Ability to identify appropriate dietary choices will improve Outcome: Progressing Problem: Lack of Knowledge: Goal: Ability to state ways to decrease the risk of falls will improve Outcome: Progressing Problem: Safety: Goal: Will remain free from falls Outcome: Progressing Goal: Will remain free from injury from falls Outcome: Progressing Goal: Will remain free from falls and injury in home environment Outcome: Progressing Problem: Activity: Goal: Risk for activity intolerance will decrease Outcome: Progressing Problem: Lack of Knowledge: Goal: Knowledge of diagnostic tests will improve Outcome: Progressing Goal: Knowledge of disease or condition will improve Outcome: Progressing Goal: Knowledge of safety precautions will improve Outcome: Progressing Goal: Knowledge of the prescribed therapeutic regimen will improve Outcome: Progressing Problem: Health Behavior: Goal: Ability to state signs and symptoms to report to health care provider will improve Outcome: Progressing Problem: Physical Regulation: Goal: Ability to maintain clinical measurements within normal limits will improve Outcome: Progressing Problem: Infection Risk: Goal: Will remain free from infection Outcome: Progressing Problem: Safety: Goal: Ability to remain free from injury will improve Outcome: Progressing Goal: Will remain free from falls Outcome: Progressing Problem: Self-Care: Goal: Ability to participate in self-care as condition permits will improve Outcome: Progressing Problem: Sensory: Goal: Pain level will decrease Outcome: Progressing Goal: Ability to develop a pain control plan will improve Outcome: Progressing Problem: Skin Integrity: Goal: Risk for impaired skin integrity will decrease Outcome: Progressing Problem: Tissue Perfusion: Goal: Risk factors for ineffective tissue perfusion will decrease Outcome: Progressing Problem: Activity: Goal: Mobility will improve Outcome: Progressing Problem: Lack of Knowledge: Goal: Understanding of ways to prevent future skin breakdown will improve Outcome: Progressing Goal: Ability to identify appropriate dietary choices will improve Outcome: Progressing Problem: Nutritional: Goal: Dietary intake will improve Outcome: Progressing Goal: Ability to maintain a balanced intake and output will improve Outcome: Progressing Problem: Skin Integrity: Goal: Risk for impaired skin integrity will decrease Outcome: Progressing Goal: Ability to demonstrate warm and dry skin will improve Outcome: Progressing Goal: Circulation will improve to fullest extent possible Outcome: Progressing Goals: Clinical Goals for the Shift: hemodynamic stability, monitor I&O, monitor labs, sleep hygiene, pulm hygiene, pain control Summary: Patient is hemodynamically stable, titrated esmolol and clevidipine to meat SBP goal of 120-140. Took patient to MRI, He did not tolerate MRI well due to worsening pain. Gave 4 doses of dilaudid and 2 doses of oxy. Patient did not get much sleep overnight, finally sleeping for a few hours at about 0300. [employer] WORKER * Plan of Care - Starla Bhatia RN - 06/13/2023 7:29 PM COMPANY [employer] WORK[employer] Goals: Summary: pt new admission to 8200 with Hypertension on esmolol and cleviprex gtts. Pt voices pain in back and at previous PCI site from last admission. Pt received 5mg oxy and tylenol for pain. Goalsgoing forward is to control b/p and pain. Monitor other vital signs. Provide comfort where able. [employer] WORKER * ED Procedure Note - Torin Alas Jr., MD - 06/13/2023 4:41 PM COMPANY [employer] Associated Order(s): Arterial line Procedure Arterial line Date/Time: 06/13/2023 4:41 PM Performed by: Torin Alas Jr., MD Authorized by: Nigel Mercado MD [place] Protocol: RN Notified of Procedure: yes Informed consent: Risks, benefits, alternatives discussed Patient's stated name/ matches armband: Yes Allergies confirmed: yes Consent form signed, dated, timed; matches correct patient, intended procedure and site: No consentform due to emergent status Imaging: Pertinent imaging reviewed, correctly oriented and match to patient identifiers Lab/Diag test results: Pertinent lab/diag tests reviewed and match to patient identifiers Supplies, devices and special equipment are available: yes Site/side marked: yes Immediately prior to the procedure a time out was called: a verbal verification by the procedure participants confirmed correct patient identity, correct site/side marked and visible (if applicable);agreement on procedure to be done; and correct patient positioning Indications: Indications: hemodynamic monitoring Pre-procedure details: Skin preparation: 2% Chlorhexidine Sedation: Sedation used: no Anesthesia (see MAR for exact dosages): Anesthesia method: Local infiltration Local anesthetic: Lidocaine 1% WITH epi Procedure details: Location: R radial Leo's test performed: yes Needle gauge: 22 G Placement technique: Ultrasound guided Ultrasound guidance used for: Real-time guidance Sterile ultrasound techniques: Sterile gel and sterile probe covers were used Number of attempts: 1 Transducer: waveform confirmed Post-procedure details: Post-procedure: Sterile dressing applied and sutured CMS: Normal Patient tolerance of procedure: Tolerated well, no immediate complications Post Procedure Debrief: All guidewires, needles, sponges or other items are accounted for: yes Any special post procedure monitoring, testing or other considerations: n/a All specimens identified, labeled and matched to patient identification: n/a Responsible green party for transporting specimen(s) to lab determined: n/a Torin Alas Jr., MD Resident 06/13/23 1641 Cosigned by Nigel Mercado MD at 06/13/2023 8:36 PM COMPANY [employer] WORKER ANY [employer]DRY WORKER ANY LAUNDRY WORKER Associated attestation - Nigel Mercado MD - 06/13/2023 8:36 PM COMPANY [employer] WORK[employer] I was present for the entire procedure * ED Re-evaluation Note - Torin Alas Jr., MD - 06/13/2023 2:57 PM COMPANY [employer] WORK[employer] ED Re-evaluation TRANSITION OF CARE: I, Torin Alas Jr., MD, am taking signout. I have reviewed all pertinent vital signs, allergies, and history available in the chart. Summary: 33 y.o. male PMH notable for hypertension, AAA status post TEVAR and dissection stent placement on 06/05 and discharged on 06/09, chronic abdominal pain, and mood disorder who presents by personal vehicle for back pain and hypertension. Persistently hypertensive since dc. Vascular recs 120-140 Bp goal, on esmolol. ESR, CRP elevated. Pending: Vascular recs Dispo: Likely admit ED Course as of 06/13/23 1639 Time: 06/13 1305 Comment: Teaching resident attestation: I, Jae Toledo MD, have discussed the case with the cici resident, examined the patient, and reviewed the history with the patient. Briefly, this patient is a 33 y.o. male here with several complaints, as well as hypertension. Patient was just recently discharged. Since discharge the patient has had low back pain. He has also had chills. He has had excruciating pain at his surgical site in his left groin. He has had no numbness or tingling of his legs. He did have some severe low back pain day so ago. Here the patient has bounding pulses in bilateral lower extremities. He appears very uncomfortable.He is diaphoretic (states he has had low-grade fevers at home, chills.) He has also had uncontrolled hypertension. He has no tenderness of his abdomen, no murmur. His surgical site appears clean dry and intact with no signs of infection outwardly. By: Jae Toledo MD Time: 06/13 1311 Comment: Ddx: Surgical site infection, verses simple musculoskeletal back pain (currently no pain) verses endoleak verses abscess verses diskitis, lower concern for epidural abscess given no leg weakness, no concern for cauda equina syndrome given examination. Osteomyelitis less likely given no tachycardia here. Low concern for ACS given lack of chest pain or shortness of breath. Low concern for pneumonia given no abnormal lung sounds on auscultation. Low concern for other intra-abdominal infection given no tenderness of the belly but we will investigate this with a CT scan since the patient could have an endoleak. Uncontrolled pain maybe the cause of the patient's hypertension. Patient states he has been very compliant with his medications making this less likely. By: Jae Toledo MD Time: 06/13 1341 Value: Imm gran abs(!): 0.2 Comment: Left shift By: Jae Toledo MD Time: 06/13 1341 Value: WBC(!): 10.5 Comment: (Reviewed) By: Jae Toledo MD Time: 06/13 1342 Value: Plt(!): 462 Comment: Suggestive of chronic inflammation By: Jae Toledo MD Time: 06/13 1426 Value: CRP(!): 155.8 Comment: (Reviewed) By: Jae Toledo MD Time: 06/13 1428 Comment: Discussed admission By: Jae Toledo MD Time: 06/13 1432 Comment: On my review of chart patient had his lumbar drain placed by anesthesia when he went to surgery last. By: Jae Toledo MD Time: 06/13 1434 Comment: Patient has multiple markers of inflammation. He has thrombocytosis, elevated ESR, elevated CRP, and a left shift. He has had low-grade fevers. Examination of the patient's back at this timereveals no outward signs of inflammation or infection, the patient does have midline tenderness of the low thoracic and then lumbar spine. Based on this, and the recent access of the patient's subdural space, he is at risk for spinal epidural abscess. Will plan on MRI. May need antibiotics; at thistime, patient has absolutely no weakness, numbness, tingling, paresthesias, or any other symptoms that could be consistent with neurologic abnormalities from a spinal epidural abscess. At this time, I do believe it is appropriate to proceed with workup without antibiotics, as if the patient does have an abscess, it would be appropriate to perform sampling of the abscess. By: Jae Toledo MD Time: 06/13 5289 Comment: Spoke with [id number] ICU fellow. Will accept patient to their service By: Torin Alas Jr., MD [place], Roland Scott Jr., MD Resident 06/13/23 3075 ANY [employer]UNDRY WORKER * ED Procedure Note - Guerrero De Los Santos MD - 06/13/2023 2:39 PM CSTAssociated Order(s): Critical Care Procedure Critical Care Performed by: Guerrero De Los Santos MD Authorized by: Guerreor De Los Santos MD Critical care provider statement: As reflected in the history, physical exam, orders, notes, and/or MDM, I was personally present while the patient was critically ill and provided critical care services for 45 minutes, excluding timeinvolved in separately billable procedures. Critical care was necessary to treat or prevent imminent or life- threatening deterioration of the following condition(s): unstable vital signs severe cardiac condition, aortic dissection/aneurysm and hypertensive crisis acute respiratory insufficiency Critical care was time spent by me providing the following: continuous telemetry, interpretation of bedside monitors, imaging, and arterial/venous lab draws and serial bedside patient exams initiation and active titration of vasoactive medications and initiation of rate controlling agent Consult to vascular surgery supplemental oxygen prepared for emergent procedure/operating room I provided emergent necessary critical care medicine services to this patient. I ordered and reviewed test results and/or imaging studies. I spent time discussing the management of this critically ill patient with consultants and the medical staff. I spent time discussing the management and therapeutic options for this critically ill patient with the patient themselves or with the appropriate designated surrogate decision-maker. I admitted this patient to an Intensive Care unit (ICU) and discussed management with the admitting team. I spent time documenting in the medical record. Guerrero De Los Santos MD 06/13/23 1441 Guerrero De Los Santos MD 06/13/23 1447 ANY LAUNDRY WORKER ANY LAUNDRY WORKER * Plan of Care - Shirley Mixon RN - 06/13/2023 1:50 PM CST Images from the original note were not included. 06/13/23 1346 Type Readmission </= 30 Days? Yes High Utilizer >/= 4 Hospitalizations in 12 Months? No Record Review of Prior Admission Disposition at Prior Admit D/C Home Was the D/C Location what the Care Team Recommended? Yes If 6-Click Score on Previous Admission was < 17 was PT/OT Ordered? No High Risk Medications Opioids;Psychiatric Is Patient ACO No Patient Interview Patient Discharged prior to Interview No Did Patient have assigned PCP on Discharge? Yes Was Appointment made on Index Discharge? Yes Appointment made with Specialist Number of Days from Index D/C 8-14 Who Provided the Information Other (Comment) In Patient's own words, what led to return to Hospital Per chart review: Pt had surgery for AAA on jun 05. Pt having hypertension for last 2 days pt states he has been taking b/p meds pt denies anychest pain, sob, headache, dizziness Was Patient Discharged to Home Yes Were Presciptions Filled Yes ANY [employer]DRY WORKER * ED Procedure Note - Jae Toledo MD - 06/13/2023 1:18 PM COMPANY [employer] WORK[employer] Associated Order(s): ECG 12 lead Procedure ECG 12 lead Date/Time: 06/13/2023 1:18 PM Performed by: Jae Toledo MD Authorized by: Akash Spears MD Quality: Tracing quality: Limited by artifact Comments: Comparison is from 06/03/2023. Patient is in sinus rhythm with a rate of 83. There are T-wave inversions in lead 1 lead 2 aVL V4 V5 V6. These were present on previous . LVH is present. There is no STdeviation. [place] is leftward. Compared to previous, abnormal, but no significant ischemic changes compared to previous. Jae Toledo MD Resident 06/13/23 1322 Cosigned by Guerrero De Los Santos MD at 06/13/2023 1:24 PM COMPANY LAUNDRY WORKER ANY LAUNDRY WORKER ANY LAUNDRY WORKER Associated attestation - Guerrero De Los Santos MD - 06/13/2023 1:24 PM COMPANY [employer] WORKER I have personally reviewed the tracing and the resident's interpretation. I agree with the findings. documented in this encounter Plan of Treatment Pending Results Name Type Priority Associated Diagnoses Date /Time Triglycerides Lab Routine 06/21/2023 4:01 AM COMPANY [employer] WORKER Scheduled Orders Name Type Priority Associated Diagnoses Orde r Schedule Triglycerides Lab Routine Once for 1 Occurrences starting 06/21/2023 until 06/21/2023 documented as of this encounter Procedures Procedure Name Priority Date/Time Associated Diagnosis Comments CRITICAL CARE Routine 06/24/2023 10:19 AM COMPANY [employer] WORKER Infrarenal abdominal aortic aneurysm, without rupture (HCC) EGFR Routine 06/23/2023 11:44 PM COMPANY [employer] WORKER CBC WITHOUT DIFFERENTIAL Routine 2 024 11:44 PM COMPANY [employer] WORKER PHOSPHORUS Routine 06/23/2023 11:44 PM COMPANY [employer] WORKER MAGNESIUM Routine 06/23/2023 11:44 PM COMPANY [employer] WORKER BASIC METABOLIC PANEL Routine 06/23/2023 11:44 PM COMPANY [employer] WORKER CRITICAL CARE Routine 06/23/2023 9:36 AM COMPANY [employer] WORKER Infrarenal abdominal aortic aneurysm, without rupture (HCC) EGFR Routine 06/23/2023 5:06 AM COMPANY [employer]DRY WORKER CBC WITHOUT DIFFERENTIAL Routine 024 5:06 AM COMPANY [employer]DR[employer] WORKER PHOSPHORUS Routine 06/23/2023 5:06 AM [employer] MAGNESIUM Routine 06/23/2023 5:06 AM [employer] BASIC METABOLIC PANEL Routine 06/23/2023 5:06 AM [employer] CRITICAL CARE Routine 06/22/2023 11:30 AM [employer] Infrarenal abdominal aortic aneurysm, without rupture (HCC) EGFR Routine 06/22/2023 1:09 AM [employer] CBC WITHOUT DIFFERENTIAL Routine 024 1:09 AM [employer] PHOSPHORUS Routine 06/22/2023 1:09 AM [employer] MAGNESIUM Routine 06/22/2023 1:09 AM [employer] BASIC METABOLIC PANEL Routine 06/22/2023 1:09 AM [employer] HEMOGLOBIN AND HEMATOCRIT Routine 2023 11:20 AM [employer] WORK[employer] CRITICAL CARE Routine 06/21/2023 9:52 AM [employer] Infrarenal abdominal aortic aneurysm, without rupture (HCC) EGFR Routine 06/21/2023 4:01 AM [employer] WORK[employer] CBC WITHOUT DIFFERENTIAL Routine 024 4:01 AM [employer]ER TRIGLYCERIDES Routine 06/21/2023 4:01 AM [employer] WORK[employer] PHOSPHORUS Routine 06/21/2023 4:01 AM [employer] WORK[employer] MAGNESIUM Routine 06/21/2023 4:01 AM [employer] COMPREHENSIVE METABOLIC PANEL Routine 06/21/2023 4:01 AM [employer] CRITICAL CARE Routine 06/20/2023 10:00 AM [employer] Infrarenal abdominal aortic aneurysm, without rupture (HCC) RENIN ACTIVITY Routine 06/20/2023 2:34 AM [employer] WORK[employer] EGFR Routine 06/20/2023 12:22 AM [employer] METANEPHRINES, FRACTIONATED FREE, BLOOD Routine 06/20/2023 12:22 AM [employer] ALDOSTERONE Routine 06/20/2023 12:22 AM [employer] DHEA-SULFATE Routine 06/20/2023 12:22 AM [employer] WORK[employer] CBC WITHOUT DIFFERENTIAL Routine 024 12:22 AM [employer] PHOSPHORUS Routine 06/20/2023 12:22 AM [employer] WORK[employer] MAGNESIUM Routine 06/20/2023 12:22 AM [employer] CORTISOL Timed 06/20/2023 12:22 AM [employer] COMPREHENSIVE METABOLIC PANEL Routine 06/20/2023 12:22 AM [employer] WORK[employer] CRITICAL CARE Routine 06/19/2023 11:34 AM [employer] Infrarenal abdominal aortic aneurysm, without rupture (HCC) TYPE AND SCREEN Timed 06/18/2023 11:58 PM [employer] WORK[employer] EGFR Routine 06/18/2023 11:52 PM [employer] WORKER CBC WITHOUT DIFFERENTIAL Routine 024 11:52 PM [employer] WORKER PHOSPHORUS Routine 06/18/2023 11:52 PM [employer] WORKER MAGNESIUM Routine 06/18/2023 11:52 PM [employer] WORK[employer] COMPREHENSIVE METABOLIC PANEL Routine 06/18/2023 11:52 PM [employer] WORK[employer] CRITICAL CARE Routine 06/18/2023 11:38 AM [employer] Infrarenal abdominal aortic aneurysm, without rupture (HCC) EGFR Routine 06/18/2023 3:04 AM [employer] WORK[employer] CBC WITHOUT DIFFERENTIAL Routine 024 3:04 AM [employer] WORKER TRIGLYCERIDES Routine 06/18/2023 3:04 AM [employer] WORK[employer] PHOSPHORUS Routine 06/18/2023 3:04 AM [employer] WORK[employer] MAGNESIUM Routine 06/18/2023 3:04 AM [employer] COMPREHENSIVE METABOLIC PANEL Routine 06/18/2023 3:04 AM [employer] POCT GLUCOSE DEVICE Routine 06/17/2023 8 :55 AM [employer] WORK[employer] CRITICAL CARE Routine 06/17/2023 6:58 AM [employer] Infrarenal abdominal aortic aneurysm, without rupture (HCC) POTASSIUM, WHOLE BLOOD STAT 4 5:51 AM [employer] WORK[employer] EGFR Routine 06/17/2023 12:00 AM [employer] WORK[employer] CBC WITHOUT DIFFERENTIAL Routine 024 12:00 AM [employer] WORK[employer] PHOSPHORUS Routine 06/17/2023 12:00 AM [employer] WORK[employer] MAGNESIUM Routine 06/17/2023 12:00 AM [employer] COMPREHENSIVE METABOLIC PANEL Routine 06/17/2023 12:00 AM [employer] POTASSIUM, WHOLE BLOOD STAT 4 8:47 PM [employer] XR CHEST 1 VIEW Timed 06/16/2023 7:29 PM [employer] WORKER CRITICAL CARE Routine 06/16/2023 6:40 PM [employer] WORKER Epistaxis POTASSIUM, WHOLE BLOOD Routine 4 10:35 AM [employer] WORKER VANCOMYCIN LEVEL TROUGH Timed 06/16/19 24 9:40 AM [employer] WORK[employer] CRITICAL CARE Routine 06/16/2023 6:40 AM [employer] Infrarenal abdominal aortic aneurysm, without rupture (HCC) POTASSIUM, WHOLE BLOOD STAT 4 6:00 AM [employer] WORK[employer] MRI SPINE TOTAL COMPLETE W WO CONTRAST IP Routine 06/16/2023 5:19 AM [employer] POTASSIUM, WHOLE BLOOD STAT 4 1:13 AM [employer] EGFR Routine 06/16/2023 12:00 AM [employer] WORK[employer] CBC WITHOUT DIFFERENTIAL Routine 024 12:00 AM [employer] WORKER TRIGLYCERIDES Routine 06/16/2023 12:00 AM [employer] WORKER PHOSPHORUS Routine 06/16/2023 12:00 AM [employer] WORKER MAGNESIUM Routine 06/16/2023 12:00 AM [employer] WORK[employer] COMPREHENSIVE METABOLIC PANEL Routine 06/16/2023 12:00 AM [employer] WORKER CRITICAL CARE Routine 06/15/2023 9:04 PM [employer] WORKER Dissection of aorta, unspecified portion of aorta (HCC) CRITICAL CARE Routine 06/15/2023 7:15 AM [employer] Infrarenal abdominal aortic aneurysm, without rupture (HCC) EGFR Routine 06/14/2023 8:31 PM [employer] WORKER CBC WITHOUT DIFFERENTIAL Routine 024 8:31 PM [employer] WORKER PHOSPHORUS Routine 06/14/2023 8:31 PM [employer] WORK[employer] MAGNESIUM Routine 06/14/2023 8:31 PM [employer] WORK[employer] COMPREHENSIVE METABOLIC PANEL Routine 06/14/2023 8:31 PM [employer] WORKER CRITICAL CARE Routine 06/14/2023 7:02 PM [employer]ER Infrarenal abdominal aortic aneurysm, without rupture (HCC) VANCOMYCIN LEVEL TROUGH Timed 06/14/19 24 5:51 PM COMPANY [employer] WORKER WI ARTL CATHJ/CANNULJ MNTR/TRANSFUSION SPX PRQ Routine 06/14/2023 1:52 PM [employer] Infrarenal abdominal aortic aneurysm, without rupture (HCC) HIV 1/2 ANTIBODY PLUS P24 ANTIGEN Routine 06/14/2023 11:08 AM [employer] CRITICAL CARE Routine 06/14/2023 7:05 AM [employer] Infrarenal abdominal aortic aneurysm, without rupture (HCC) EGFR Routine 06/14/2023 12:14 AM [employer] LACTATE, WHOLE BLOOD Routine 06/14/2023 12:14 AM [employer] WORK[employer] CBC WITHOUT DIFFERENTIAL Routine 024 12:14 AM [employer] WORK[employer] PHOSPHORUS Routine 06/14/2023 12:14 AM [employer] WORK[employer] MAGNESIUM Routine 06/14/2023 12:14 AM [employer] COMPREHENSIVE METABOLIC PANEL Routine 06/14/2023 12:14 AM [employer] HISTOPLASMA ANTIGEN Routine 06/13/2023 1 1:13 PM [employer] WORK[employer] CRITICAL CARE Routine 06/13/2023 10:43 PM [employer] Infrarenal abdominal aortic aneurysm, without rupture (HCC) MRI THORACIC SPINE WO CONTRAST ED 06/13/2023 10:43 PM [employer] POTASSIUM, WHOLE BLOOD Routine 7:11 PM [employer] ECG 12-LEAD STAT 06/13/2023 6:04 PM [employer] Q FEVER AB W REFLEX TO IMMUNOFLUORESCENCE Routine 06/13/2023 6:00 PM [employer] WORK[employer] TROPONIN I HIGH-SENSITIVITY 6-HOUR Timed 06/13/2023 6:00 PM [employer] HISTOPLASMA ANTIBODY Routine 06/13/2023 6:00 PM [employer] WORKER BARTONELLA ANTIBODY PANEL Routine 2023 6:00 PM [employer] WORKER CRITICAL CARE Routine 06/13/2023 5:36 PM [employer]ER OXYCODONE CONFIRMATION, URINE Routine 06/13/2023 4:58 PM [employer] WORK[employer] TROPONIN I HIGH-SENSITIVITY 4-HOUR Timed 06/13/2023 4:58 PM [employer] WORK[employer] DRUGS OF ABUSE SCREEN, URINE WITH REFLEX CONFIRMATION Routine 06/13/2023 4:58 PM [employer] WORKER WI ARTL CATHJ/CANNULJ MNTR/TRANSFUSION SPX PRQ Routine 06/13/2023 4:41 PM [employer] WORKER TROPONIN I HIGH-SENSITIVITY 2-HOUR Timed 06/13/2023 2:42 PM COMPANY [employer] WORKER WI CRITICAL CARE ILL/INJURED PATIENT INIT 30-74 MIN Routine 06/13/2023 2:39 PM [employer] WORK[employer] RESPIRATORY PATHOGEN PANEL Routine 06/13/2023 2:35 PM [employer] WORK[employer] URINALYSIS AND REFLEX TO MICROSCOPIC AND CULTURE STAT 06/13/2023 2:07 PM [employer] URINALYSIS, MICROSCOPIC ONLY STAT 06/13/2023 2:07 PM [employer] WORK[employer] XR CHEST 1 VIEW ED 06/13/2023 1:58 PM [employer] CT RECON THORACIC AND LUMBAR SPINE W CONTRAST ED 06/13/2023 1:47 PM [employer] WORKER CTA CHEST ABDOMEN PELVIS ED 1:47 PM [employer] WORKER POCT CREATININE - DEVICE Routine 1:20 PM [employer] WORKER POCUS CARDIAC 06/13/2023 1:19 PM [employer] WORK[employer] POCUS RETROPERITONEAL (AAA OR RENAL) 06/13/2023 1:18 PM [employer] WORK[employer] ECG 12-LEAD STAT 06/13/2023 1:18 PM [employer] WORKER TROPONIN I HIGH-SENSITIVITY SERIES (BASELINE, 2HR, 4HR, 6HR) STAT 06/13/2023 1:07 PM [employer] WORK[employer] EGFR STAT 06/13/2023 1:07 PM [employer] WORKER DIFFERENTIAL AUTO STAT 06/13/2023 1:0 7 PM [employer] WORK[employer] CBC WITH AUTO DIFFERENTIAL STAT 06/13/2023 1:07 PM [employer] BLOOD CULTURE STAT 06/13/2023 1:07 PM [employer] BLOOD CULTURE STAT 06/13/2023 1:07 PM [employer] APTT STAT 06/13/2023 1:07 PM [employer] WORKER ERYTHROCYTE SEDIMENTATION RATE STAT 06/13/2023 1:07 PM [employer] WORKER PROTIME-INR STAT 06/13/2023 1:07 PM [employer] WORKER CRP (ACUTE PHASE) STAT 06/13/2023 1:0 7 PM [employer] WORKER CORTISOL Timed 06/13/2023 1:07 PM [employer] WORKER COMPREHENSIVE METABOLIC PANEL STAT 06/13/2023 1:07 PM [employer] WORKER documented in this encounter Results * Critical Care (06/24/2023 10:19 AM COMPANY [employer] WORKER) Narrative Dank Villa MD - 06/24/2023 10:19 AM [employer] WORKER Dank Villa MD ? 06/24/2023 10:52 AM Critical Care Performed by: Dank Villa MD Authorized by: Dank Villa MD ?? CRITICAL CARE: ??Team: ??OTHER ??Shift: ??AM ??Level of Billing: ??Critical Care ??My time spent with this patient was 45 minutes: Critical Provider Statement: I have seen and examined the patient on this day of service. I have reviewed and confirmed the history, physical exam, laboratory and radiologic data as documented in the signed ICU note. I have reviewed and discussed my treatment plan with the ICU team and other medical/service consultant staff, making frequent assessments and decisions [...] life-threatening deterioration of the following conditions: ? I spent time reviewing and interpreting data from bedside monitors, laboratory results, and imaging, I spent time documenting in the medical record and I spent time discussing the management of this critically ill patient with consultants and the medical staff us Dank Villa MD IN CLINIC/BEDSIDE ORDERAB LES Edited Result - Final * eGFR (06/23/2023 11:44 PM COMPANY [employer] WORKER) [facility] eGFR >90 >=60 mL/min/1. 73 m2 [facility] Comment: Interpretive Data Reference Interval Normal [...] interpretive data was last reviewed 2021. Blood 06/23/2023 11:4 4 PM [employer] WORKER 06/24/2023 12:01 AM [employer] WORK[employer] Dank Villa MD LAB BLOOD ORDERABLES Sally l Result [facility] Department [place] [address] * (ABNORMAL) Basic metabolic panel (06/23/2023 11:44 PM [employer] WORKER) Sodium 137 135 - 145 mmol/L [facility] Potassium, pl 4.1 3.3 - 4.9 mmol/L [facility] Chloride 102 97 - 110 mmol/L [facility] CO2 23 22 - 32 mmol/L [facility] Anion gap 12 2 - 15 mmol/L [facility] BUN 28(H) 6 - 25 mg/dL [facility] Creatinine 1.05 0.80 - 1.30 mg/dL [facility] Glucose 127 70 - 199 mg/dL [facility] Comment: Interpretive Data Fasting glucose >/= [...] interpretive data was last revised 2022. Calcium 9.4 8.5 - 10.3 mg/dL [facility] Blood 06/23/2023 11:4 4 PM [employer] 06/24/2023 12:01 AM [employer] WORKER us Dank Villa MD LAB BLOOD ORDERABLES Sally l Result Performing Organization Address [facility]/ZIP Co de Phone Number [facility] Department [place] [address] * Phosphorus (06/23/2023 11:44 PM COMPANY [employer] WORKER) Phosphorus, pl 4.4 2.3 - 4.5 mg/dL [facility] Blood 06/23/2023 11:4 4 PM [employer] WORKER 06/24/2023 12:01 AM [employer] WORKER Ayse Macias PROFESSOR OF NURSING LAB BLOOD ORDERABLES Final Result Performing Organization Address City/[facility]/ZIP Co de Phone Number [facility] [place] [address] * Magnesium (06/23/2023 11:44 PM COMPANY [employer] WORKER) [facility] Magnesium 2.2 1.4 - 2.5 mg/dL [facility] Blood 06/23/2023 11:4 4 PM [employer] WORKER 06/24/2023 12:01 AM [employer] WORKER Ayse Macias PROFESSOR OF NURSING LAB BLOOD ORDERABLES Final Result Performing Organization Address [facility] de Phone Number [facility] [place] [address] * (ABNORMAL) CBC without differential (06/23/2023 11:44 PM COMPANY [employer] WORKER) [facility] WBC 10.3(H) 3.8 - 9.9 K/cumm [facility] Hgb 9.3(L) 13.0 - 17.5 g/dL [facility] Hct 29.3(L) 38.9 - 50.3 % [facility] Plt 389 150 - 400 K/cumm [facility] MPV 9.3 9.1 - 12.3 fL [facility] RBC 3.34(L) 4.30 - 5.80 M/cumm [facility] MCV 87.7 81.3 - 96.4 fL [facility] MCH 27.8 27.1 - 33.3 pg [facility] MCHC 31.7(L) 32.3 - 35.7 g/dL [facility] RDW CV 13.8 11.1 - 14.9 % [facility] RDW SD 44.2 35.7 - 48.1 fL [facility] NRBC abs 0.00 0.00 - 0.01 K/cumm [facility] Blood 06/23/2023 11:4 4 PM [employer] WORKER 06/24/2023 1:34 AM [employer] WORKER Ayse Macias PROFESSOR OF NURSING LAB BLOOD ORDERABLES Final Result [facility] Department [place] [address] * Critical Care (06/23/2023 9:36 AM COMPANY [employer] WORKER) Narrative Dank Villa MD - 06/23/2023 9:36 AM [employer] WORKER Dank Villa MD ? 06/23/2023 ??9:51 AM Critical Care Performed by: Dank Villa MD Authorized by: Dank Villa MD ?? CRITICAL CARE: ??Team: ??OTHER ??Shift: ??AM ??Level of Billing: ??Critical Care ??My time spent with this patient was 35 minutes: Critical Provider Statement: I have seen and examined the patient on this day of service. I have reviewed and confirmed the history, physical exam, laboratory and radiologic data as documented in the signed ICU note. I have reviewed and discussed my treatment plan with the ICU team and other medical/service consultant staff, making frequent assessments and decisions [...] life-threatening deterioration of the following conditions: ? I spent time documenting in the medical record, I spent time discussing the management of this critically ill patient with consultants and the medical staff and I spent time reviewing and interpreting data from bedside monitors, laboratory results, and imaging us Dank Villa MD IN CLINIC/BEDSIDE ORDERAB LES Final Result * eGFR (06/23/2023 5:06 AM COMPANY [employer] WORKER) [facility] eGFR >90 >=60 mL/min/1. 73 m2 [facility] Comment: Interpretive Data Reference Interval Normal [...] interpretive data was last reviewed 2021. Blood 06/23/2023 5:06 AM [employer] WORKER 06/23/2023 5:20 AM [employer] WORKER Dank Villa MD LAB BLOOD ORDERABLES Sally zhang Result Performing Organization Address City/State/[facility] Co de Phone Number [facility] Department [place] [address] * Basic metabolic panel (06/23/2023 5:06 AM COMPANY LA[employer]DRY WORKER) Pathologist [facility] Sodium 139 135 - 145 mmol/L [facility] Potassium, pl 4.3 3.3 - 4.9 mmol/L [facility] Chloride 103 97 - 110 mmol/L [facility] CO2 24 22 - 32 mmol/L [facility] Anion gap 12 2 - 15 mmol/L [facility] BUN 21 6 - 25 mg/dL [facility] Creatinine 0.96 0.80 - 1.30 mg/dL [facility] Glucose 102 70 - 199 mg/dL [facility] Comment: Interpretive Data Fasting glucose >/= [...] interpretive data was last revised 2022. Calcium 10.0 8.5 - 10.3 mg/dL [facility] Blood 06/23/2023 5:06 AM [employer] WORKER 06/23/2023 5:20 AM [employer] WORKER Dank Villa MD LAB BLOOD ORDERABLES Sally l Result [facility] Department [place] [address] * (ABNORMAL) Phosphorus (06/23/2023 5:06 AM COMPANY [employer] WORKER) Phosphorus, pl 5.1(H) 2.3 - 4.5 mg/dL [facility] Blood 06/23/2023 5:06 AM [employer] WORKER 06/23/2023 5:20 AM [employer] WORKER Ayse Macias NP LAB BLOOD ORDERABLES Final Result [facility] Department [place] [address] * Magnesium (06/23/2023 5:06 AM COMPANY [employer] WORKER) Magnesium 2.2 1.4 - 2.5 mg/dL [facility] Blood 06/23/2023 5:06 AM [employer] WORKER 06/23/2023 5:20 AM [employer] WORKER Ayse Macias PROFESSOR OF NURSING LAB BLOOD ORDERABLES Final Result Performing Organization Address [facility]/ZIP Co de Phone Number [facility] Department [place] [address] * (ABNORMAL) CBC without differential (06/23/2023 5:06 AM COMPANY [employer] WORKER) Pathologist [facility] WBC 9.9 3.8 - 9.9 K/cumm [facility] Hgb 9.4(L) 13.0 - 17.5 g/dL [facility] Hct 29.1(L) 38.9 - 50.3 % [facility] Plt 446(H) 150 - 400 K/cumm [facility] MPV 8.8(L) 9.1 - 12.3 fL [facility] RBC 3.30(L) 4.30 - 5.80 M/cumm [facility] MCV 88.2 81.3 - 96.4 fL [facility] MCH 28.5 27.1 - 33.3 pg [facility] MCHC 32.3 32.3 - 35.7 g/dL [facility] RDW CV 13.7 11.1 - 14.9 % [facility] RDW SD 44.7 35.7 - 48.1 fL [facility] NRBC abs 0.00 0.00 - 0.01 K/cumm [facility] Blood 06/23/2023 5:06 AM [employer] WORKER 06/23/2023 5:20 AM [employer] WORKER Ayse Macias PROFESSOR OF NURSING LAB BLOOD ORDERABLES Final Result [facility] [place] [address] * Critical Care (06/22/2023 11:30 AM COMPANY [employer] WORKER) Narrative Dank Villa MD - 06/22/2023 11:30 AM [employer] WORKER Dank Villa MD ? 06/22/2023 11:36 AM Critical Care Performed by: Dank Villa MD Authorized by: Dank Villa MD ?? CRITICAL CARE: ??Team: ??OTHER ??Shift: ??AM ??Level of Billing: ??Critical Care ??My time spent with this patient was 75 minutes: Critical Provider Statement: I have seen and examined the patient on this day of service. I have reviewed and confirmed the history, physical exam, laboratory and radiologic data as documented in the signed ICU note. I have reviewed and discussed my treatment plan with the ICU team and other medical/service consultant staff, making frequent assessments and decisions [...] life-threatening deterioration of the following conditions: ? I spent time documenting in the medical record, I spent time discussing the management of this critically ill patient with consultants and the medical staff and I spent time reviewing and interpreting data from bedside monitors, laboratory results, and imaging us Dank Villa MD IN CLINIC/BEDSIDE ORDERAB LES Final Result * eGFR (06/22/2023 1:09 AM COMPANY [employer]Y WORKER) [facility] eGFR >90 >=60 mL/min/1. 73 m2 [facility] Comment: Interpretive Data Reference Interval Normal [...] interpretive data was last reviewed 2021. Blood 06/22/2023 1:09 AM COMPANY [employer] WORKER 06/22/2023 5:14 AM [employer] WORKER us Dank Villa MD LAB BLOOD ORDERABLES Sally zhang Result [facility] Department [place] [address] * Basic metabolic panel (06/22/2023 1:09 AM COMPANY LA[employer]DR[employer] WORKER) [facility] Sodium 137 135 - 145 mmol/L [facility] Potassium, pl 4.2 3.3 - 4.9 mmol/L [facility] Chloride 100 97 - 110 mmol/L [facility] CO2 26 22 - 32 mmol/L [facility] Anion gap 11 2 - 15 mmol/L [facility] BUN 18 6 - 25 mg/dL [facility] Creatinine 0.85 0.80 - 1.30 mg/dL [facility] Glucose 102 70 - 199 mg/dL [facility] Comment: Interpretive Data Fasting glucose >/= [...] 2022. Calcium 9.9 8.5 - 10.3 mg/dL [facility] Blood 06/22/2023 1:09 AM COMPANY [employer] WORKER 06/22/2023 5:14 AM [employer] WORKER Dank Villa MD LAB BLOOD ORDERABLES Sally l Result Performing Organization Address City/[facility]/ZIP Co de Phone Number [facility] [place] [address] * Phosphorus (06/22/2023 1:09 AM COMPANY LA[employer]DRY WORKER) Pathologist [facility] Phosphorus, pl 4.4 2.3 - 4.5 mg/dL [facility] Blood 06/22/2023 1:09 AM COMPANY [employer] WORKER 06/22/2023 5:14 AM [employer] WORKER Ayse Macias NP LAB BLOOD ORDERABLES Final Result Performing Organization Address [facility] de Phone Number [facility] [place] [address] * Magnesium (06/22/2023 1:09 AM COMPANY LA[employer]DR[employer] WORKER) Pathologist [facility] Magnesium 2.1 1.4 - 2.5 mg/dL [facility] Blood 06/22/2023 1:09 AM COMPANY [employer] WORKER 06/22/2023 5:14 AM [employer] WORKER Ayse Macias NP LAB BLOOD ORDERABLES Final Result Performing Organization Address [facility] Co [place] [address] * (ABNORMAL) CBC without differential (06/22/2023 1:09 AM COMPANY LA[employer]DRY WORKER) [facility] WBC 8.5 3.8 - 9.9 K/cumm [facility] Hgb 9.6(L) 13.0 - 17.5 g/dL [facility] Hct 29.8(L) 38.9 - 50.3 % [facility] Plt 454(H) 150 - 400 K/cumm [facility] MPV 8.9(L) 9.1 - 12.3 fL [facility] RBC 3.36(L) 4.30 - 5.80 M/cumm [facility] MCV 88.7 81.3 - 96.4 fL [facility] MCH 28.6 27.1 - 33.3 pg [facility] MCHC 32.2(L) 32.3 - 35.7 g/dL [facility] RDW CV 13.9 11.1 - 14.9 % [facility] RDW SD 45.1 35.7 - 48.1 fL [facility] NRBC abs 0.00 0.00 - 0.01 K/cumm [facility] Blood 06/22/2023 1:09 AM COMPANY [employer] WORKER 06/22/2023 5:14 AM COMPANY [employer] WORKER us Ayse Macias NP LAB BLOOD ORDERABLES Final Result Performing Organization Address City/[facility]/ZIP Co de Phone Number [facility] Department [place] [address] * (ABNORMAL) Hemoglobin and hematocrit (06/21/2023 11:20 AM COMPANY LA[employer]DRY WORKER) [facility] Hgb 9.8(L) 13.0 - 17.5 g/dL [facility] Hct 30.7(L) 38.9 - 50.3 % [facility] Blood 06/21/2023 11:2 0 AM [employer] WORKER 06/21/2023 11:42 AM [employer]DR[employer] WORKER us Dank Villa MD LAB BLOOD ORDERABLES Sally l Result [facility] Department [place] [address] * Critical Care (06/21/2023 9:52 AM COMPANY LA[employer]DRY WORKER) Narrative Dank Villa MD - 06/21/2023 9:52 AM COMPANY [employer]DRY WORKER Dank Villa MD ? 06/21/2023 11:36 AM Critical Care Performed by: Dank Villa MD Authorized by: Dank Villa MD ?? CRITICAL CARE: ??Team: ??OTHER ??Shift: ??AM ??Level of Billing: ??Critical Care ??My time spent with this patient was 35 minutes: Critical Provider Statement: I have seen and examined the patient on this day of service. I have reviewed and confirmed the history, physical exam, laboratory and radiologic data as documented in the signed ICU note. I have reviewed and discussed my treatment plan with the ICU team and other medical/service consultant staff, making frequent assessments and decisions [...] life-threatening deterioration of the following conditions: ? I spent time documenting in the medical record, I spent time discussing the management of this critically ill patient with consultants and the medical staff and I spent time reviewing and interpreting data from bedside monitors, laboratory results, and imaging Dank Villa MD IN CLINIC/BEDSIDE ORDERAB LES Edited Result - Final * Triglycerides (06/21/2023 4:01 AM COMPANY LAUNDRY WORKER) [facility] Triglycerides 129 <=149 mg/dL [facility] Comment: Interpretive Data Ages < or = 9 years ??Acceptable: ? <75 mg/dL ??Borderline high: ??75-99 mg/dL ??High: ? >or= 100 mg/dL Ages 10 to 20 years ??Acceptable: ? <90 mg/dL ??Borderline high: ??90-129 mg/dL ??High: ? >or= 130 mg/dL Ages > or = 20 years ??Desirable: ?<150 mg/dL ??Borderline high: ??150-199 mg/dL ??High: ? 200-499 mg/dL ?Very high: ?? >or= 499 mg/dL Literature References: 1. Expert Panel on Integrated Guidelines for Cardiovascular Health and Risk Reduction in Children and Adolescents. Pediatrics 2011;128:S213 2. NCEP Expert Panel. Circulation 2004;110:227 Current Interpretive Data was last revised on 2018. Blood 06/21/2023 4:01 AM [employer] 06/21/2023 4:25 AM [employer] WORK[employer] us Faustino Herrera MD LAB BLOOD ORDERABLES Final Result [facility] Department [place] [address] * eGFR (06/21/2023 4:01 AM [employer] WORKER) eGFR >90 >=60 mL/min/1. 73 m2 [facility] Comment: [...] interpretive data was last reviewed 2021. Blood 06/21/2023 4:01 AM [employer] 06/21/2023 4:59 AM [employer] WORKER us Ayse Macias NP LAB BLOOD ORDERABLES Final Result [facility] Department [place] [address] * Comprehensive metabolic panel (06/21/2023 4:01 AM [employer] WORK[employer]) Sodium 135 135 - 145 mmol/L [facility] Potassium, pl 4.1 3.3 - 4.9 mmol/L [facility] Chloride 99 97 - 110 mmol/L [facility] CO2 25 22 - 32 mmol/L [facility] Anion gap 11 2 - 15 mmol/L [facility] BUN 17 6 - 25 mg/dL [facility] Creatinine 0.87 0.80 - 1.30 mg/dL [facility] Glucose 98 70 - 199 mg/dL [facility] Comment: Interpretive Data Fasting glucose >/= [...] 2022. Calcium 9.8 8.5 - 10.3 mg/dL [facility] Bilirubin, total 0.3 0.1 - 1.2 mg/dL [facility] Protein, pl 8.2 6.5 - 8.5 g/dL [facility] Albumin 3.7 3.5 - 5.0 g/dL [facility] Alk phos 90 40 - 130 Units/L [facility] ALT 10 7 - 55 Units/L [facility] AST 11 10 - 50 Units/L [facility] Blood 06/21/2023 4:01 AM [employer] 06/21/2023 4:25 AM [employer] WORK[employer] Ayse Macias PROFESSOR OF NURSING LAB BLOOD ORDERABLES Final Result Performing Organization Address [facility] Co de Phone Number [facility] [place] [address] * (ABNORMAL) Phosphorus (06/21/2023 4:01 AM [employer] WORK[employer]) Phosphorus, pl 4.7(H) 2.3 - 4.5 mg/dL [facility] Blood 06/21/2023 4:01 AM [employer] 06/21/2023 4:25 AM [employer] WORKER Ayse Macias NP LAB BLOOD ORDERABLES Final Result Performing Organization Address [facility] Co de Phone Number [facility] Department [place] [address] * Magnesium (06/21/2023 4:01 AM [employer] WORKER) Pathologist [facility] Magnesium 2.1 1.4 - 2.5 mg/dL [facility] Blood 06/21/2023 4:01 AM [employer] 06/21/2023 4:25 AM [employer] WORKER Ayse Macias PROFESSOR OF NURSING LAB BLOOD ORDERABLES Final Result Performing Organization Address City/[facility] Co de Phone Number [facility] [place] [address] * (ABNORMAL) CBC without differential (06/21/2023 4:01 AM [employer] WORK[employer]) Pathologist [facility] WBC 7.3 3.8 - 9.9 K/cumm [facility] Hgb 8.8(L) 13.0 - 17.5 g/dL [facility] Hct 27.8(L) 38.9 - 50.3 % [facility] Plt 477(H) 150 - 400 K/cumm [facility] MPV 8.9(L) 9.1 - 12.3 fL [facility] RBC 3.10(L) 4.30 - 5.80 M/cumm [facility] MCV 89.7 81.3 - 96.4 fL [facility] MCH 28.4 27.1 - 33.3 pg [facility] MCHC 31.7(L) 32.3 - 35.7 g/dL [facility] RDW CV 14.0 11.1 - 14.9 % [facility] RDW SD 46.0 35.7 - 48.1 fL [facility] NRBC abs 0.00 0.00 - 0.01 K/cumm [facility] Blood 06/21/2023 4:01 AM [employer] 06/21/2023 4:14 AM [employer] WORK[employer] Ayse Macias PROFESSOR OF 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 06/20/2023 10:06 AM Critical Care Performed by: Dank Villa MD Authorized by: Dank Villa MD ?? CRITICAL CARE: ??Team: ??OTHER ??Shift: ??AM ??Level of Billing: ??Critical Care ??My time spent with this patient was 35 minutes: Critical Provider Statement: I have seen and examined the patient on this day of service. I have reviewed and confirmed the history, physical exam, laboratory and radiologic data as documented in the signed ICU note. I have reviewed and discussed my treatment plan with the ICU team and other medical/service consultant staff, making frequent assessments and decisions [...] life-threatening deterioration of the following conditions: ? I spent time documenting in the medical record, I spent time discussing the management of this critically ill patient with consultants and the medical staff and I spent time reviewing and interpreting data from bedside monitors, laboratory results, and imaging Dank Villa MD IN CLINIC/BEDSIDE ORDERAB LES Edited Result - Final * Renin activity (06/20/2023 2:34 AM COMPANY [employer] WORKER) [facility] Renin 3.2 ng/mL/H [facility] Comment: REFERENCE VALUE (Peripheral vein specimen) Na-deplete, upright: ??Mean: 10.8 ??Range: 2.9-24 Na-replete, upright: ??Mean: 1.9 ??Range: < or =0.6-4.3 ADDITIONAL INFORMATION Testing performed by Liquid Chromatography-Tandem Mass Spectrometry (LC-MS/MS). This test was developed and its performance characteristics determined by [facility] in a manner consistent with CLIA requirements. This test has not been cleared or approved by the U.S. Food and Drug Administration. Test Performed by: [facility] [place] [address] [employer] Worker: Chris Perez M.D. Ph.D.; CLIA# [id number] Blood 06/20/2023 2:34 AM [employer] 06/20/2023 3:37 AM [employer] WORK[employer] Cristobal Cote MD LAB BLOOD ORDERABLES Final Resul t [facility] Department [place] [address] * eGFR (06/20/2023 12:22 AM COMPANY [employer] WORKER) Pathologist [facility] eGFR >90 >=60 mL/min/1. 73 m2 [facility] ER[facility] Comment: [...] interpretive data was last reviewed 2021. Blood 06/20/2023 12:2 2 AM [employer] WORK[employer] 06/20/2023 12:48 AM [employer] WORKER us Ayse Macias NP LAB BLOOD ORDERABLES Final Result [facility] Department [place] [address] * (ABNORMAL) Comprehensive metabolic panel (06/20/2023 12:22 AM COMPANY [employer] WORKER) [facility] Sodium 136 135 - 145 mmol/L [facility] Potassium, pl 4.1 3.3 - 4.9 mmol/L [facility] Chloride 100 97 - 110 mmol/L [facility] CO2 25 22 - 32 mmol/L [facility] Anion gap 11 2 - 15 mmol/L [facility] BUN 16 6 - 25 mg/dL [facility] Creatinine 0.86 0.80 - 1.30 mg/dL [facility] Glucose 135 70 - 199 mg/dL [facility] Comment: Interpretive Data Fasting glucose >/= [...] 2022. Calcium 9.1 8.5 - 10.3 mg/dL [facility] Bilirubin, total 0.3 0.1 - 1.2 mg/dL [facility] Protein, pl 7.7 6.5 - 8.5 g/dL [facility] Albumin 3.3(L) 3.5 - 5.0 g/dL [facility] Alk phos 84 40 - 130 Units/L [facility] ALT 12 7 - 55 Units/L [facility] AST 11 10 - 50 Units/L [facility] Blood 06/20/2023 12:2 2 AM [employer] 06/20/2023 12:48 AM [employer] WORKER us Ayse Macias NP LAB BLOOD ORDERABLES Final Result [facility] [place] [address] * Phosphorus (06/20/2023 12:22 AM COMPANY [employer] WORKER) Pathologist [facility] Phosphorus, pl 4.0 2.3 - 4.5 mg/dL [facility] Blood 06/20/2023 12:2 2 AM [employer] 06/20/2023 12:48 AM [employer] WORKER Ayse Macias PROFESSOR OF NURSING LAB BLOOD ORDERABLES Final Result [facility] [place] [address] * Magnesium (06/20/2023 12:22 AM COMPANY [employer] WORKER) [facility] Magnesium 2.1 1.4 - 2.5 mg/dL [facility] Blood 06/20/2023 12:2 2 AM [employer] WORK[employer] 06/20/2023 12:48 AM [employer] WORKER Ayse Macias PROFESSOR OF NURSING LAB BLOOD ORDERABLES Final Result Performing Organization Address [facility] de Phone Number [facility] [place] [address] * (ABNORMAL) CBC without differential (06/20/2023 12:22 AM COMPANY [employer] WORKER) [facility] WBC 9.0 3.8 - 9.9 K/cumm [facility] Hgb 8.6(L) 13.0 - 17.5 g/dL [facility] Hct 27.5(L) 38.9 - 50.3 % [facility] Plt 467(H) 150 - 400 K/cumm [facility] MPV 9.2 9.1 - 12.3 fL [facility] RBC 3.08(L) 4.30 - 5.80 M/cumm [facility] MCV 89.3 81.3 - 96.4 fL [facility] MCH 27.9 27.1 - 33.3 pg [facility] MCHC 31.3(L) 32.3 - 35.7 g/dL [facility] RDW CV 14.1 11.1 - 14.9 % [facility] RDW SD 45.7 35.7 - 48.1 fL [facility] NRBC abs 0.00 0.00 - 0.01 K/cumm [facility] Blood 06/20/2023 12:2 2 AM [employer] WORK[employer] 06/20/2023 12:48 AM [employer] WORKER Ayse Macias NP LAB BLOOD ORDERABLES Final Result Performing Organization Address [facility] de Phone Number [facility] [place] [address] * (ABNORMAL) Cortisol (06/20/2023 12:22 AM COMPANY [employer] WORKER) Cortisol 3.8(L) 4.8 - 19.5 mcg/dL [facility] Comment: Interpretive Data: Morning hours 6-10 a.m. ??4.8 - 19.5 mcg/dL Afternoon hours 4-8 p.m. ??2.68 - 10.5 mcg/dL This analyte undergoes marked diurnal variation. Current interpretive data was last revised 21. Blood 06/20/2023 12:2 2 AM [employer] WORK[employer] 06/20/2023 12:47 AM COMPANY [employer] WORKER Result [facility] Dnak Villa MD LAB BLOOD ORDERABLES Sally l Result Performing Organization Address [facility] de Phone Number [facility] [place] [address] * (ABNORMAL) DHEA-sulfate (06/20/2023 12:22 AM COMPANY [employer] WORKER) DHEA-S 84.5(L) 160.0 - 449.0 mcg/dL [facility] Blood 06/20/2023 12:2 2 AM [employer] WORKER 06/20/2023 12:48 AM COMPANY [employer] WORKER Result [facility] Dank Villa MD LAB BLOOD ORDERABLES Sally l Result Performing Organization Address [facility] Co de Phone Number [facility] Department [place] [address] * Metanephrines, fractionated free, blood (06/20/2023 12:22 AM COMPANY [employer] WORKER) Metanephrines <0.20 <0.50 nmol/L [facility] Comment: ADDITIONAL INFORMATION This test was developed and its performance characteristics determined by [facility] in a manner consistent with CLIA requirements. This test has not been cleared or approved by the U.S. Food and Drug Administration. Test Performed by: [facility] - [address] [address] [employer] Worker: Chris Perez M.D. Ph.D.; CLIA# [id number] Normetanephrines 0.67 <0.90 nmol/L [facility] Blood 06/20/2023 12:2 2 AM [employer] WORKER 06/20/2023 3:37 AM [employer] WORKER us Dank Villa MD LAB BLOOD ORDERABLES Sally zhang Result [facility] Department [place] [address] * Aldosterone (06/20/2023 12:22 AM COMPANY LAUNDRY WORKER) Pathologist [facility] Aldosterone <4.0 <=21 ng/dL [facility] Comment: ADDITIONAL INFORMATION Reference range for patients 11 years and older is based on upright A.M. collection from subjects without sodium restrictions. This test was developed and its performance characteristics determined by [facility] in a manner consistent with CLIA requirements. This test has not been cleared or approved by the U.S. Food and Drug Administration. Test Performed by: [facility] - [address] [address] [employer] Worker: Chris Perez M.D. Ph.D.; CLIA# [id number] Blood 06/20/2023 12:2 2 AM [employer] WORK[employer] 06/20/2023 3:37 AM [employer] WORKER us Dank Villa MD LAB BLOOD ORDERABLES Sally zhang Result [facility] Department [place] [address] * Critical Care (06/19/2023 11:34 AM COMPANY [employer] WORKER) Narrative Dank Villa MD - 06/19/2023 11:34 AM [employer] WORKER Dank Villa MD ? 06/19/2023 11:42 AM Critical Care Performed by: Dank Villa MD Authorized by: Dank Villa MD ?? CRITICAL CARE: ??Team: ??OTHER ??Shift: ??AM ??Level of Billing: ??Critical Care ??My time spent with this patient was 75 minutes: Critical Provider Statement: I have seen and examined the patient on this day of service. I have reviewed and confirmed the history, physical exam, laboratory and radiologic data as documented in the signed ICU note. I have reviewed and discussed my treatment plan with the ICU team and other medical/service consultant staff, making frequent assessments and decisions [...] life-threatening deterioration of the following conditions: ? I spent time documenting in the medical record, I spent time discussing the management of this critically ill patient with consultants and the medical staff and I spent time reviewing and interpreting data from bedside monitors, laboratory results, and imaging us Dank Villa MD IN CLINIC/BEDSIDE ORDERAB LES Final Result * Type and screen (06/18/2023 11:58 PM [employer] WORKER) Ellen, indirect Negative ABO Rh A Positive [facility] Blood 06/18/2023 11:5 8 PM [employer] WORKER 06/19/2023 12:23 AM COMPANY [employer]DR[employer] WORKER Narrative [facility] - 06/19/2023 1:19 AM COMPANY [employer]DRY WORKER Has the patient had Daratumumab or Isatuximab in the past 6 months?->Unknown us Cristobal Cote MD LAB BLOOD BANK TEST ORDERABLES F inal Result [facility] Department [place] [address] * eGFR (06/18/2023 11:52 PM COMPANY [employer] WORKER) eGFR >90 >=60 mL/min/1. 73 m2 [facility] Comment: Interpretive Data Reference Interval Normal ?>/= [...] interpretive data was last reviewed 2021. Blood 06/18/2023 11:5 2 PM [employer] WORKER 06/19/2023 12:16 AM COMPANY [employer] WORKER us Ayse Macias PROFESSOR OF NURSING LAB BLOOD ORDERABLES Final Result [facility] Department [place] [address] * (ABNORMAL) Comprehensive metabolic panel (06/18/2023 11:52 PM COMPANY [employer]DR[employer] WORKER) Sodium 138 135 - 145 mmol/L [facility] Potassium, pl 3.7 3.3 - 4.9 mmol/L [facility] Chloride 104 97 - 110 mmol/L [facility] CO2 23 22 - 32 mmol/L [facility] Anion gap 11 2 - 15 mmol/L [facility] BUN 17 6 - 25 mg/dL [facility] Creatinine 0.94 0.80 - 1.30 mg/dL [facility] Glucose 128 70 - 199 mg/dL [facility] Comment: Interpretive Data Fasting glucose >/= [...] 2022. Calcium 8.4(L) 8.5 - 10.3 mg/dL [facility] Bilirubin, total 0.3 0.1 - 1.2 mg/dL [facility] Protein, pl 7.0 6.5 - 8.5 g/dL [facility] Albumin 3.1(L) 3.5 - 5.0 g/dL [facility] Alk phos 81 40 - 130 Units/L [facility] ALT 12 7 - 55 Units/L [facility] AST 12 10 - 50 Units/L [facility] Blood 06/18/2023 11:5 2 PM [employer] WORKER 06/19/2023 12:16 AM [employer] WORKER Ayse Macias PROFESSOR OF NURSING LAB BLOOD ORDERABLES Final Result Performing Organization Address City/[facility] Co de Phone Number [facility] [place] [address] * Phosphorus (06/18/2023 11:52 PM COMPANY LA[employer]DR[employer] WORKER) Pathologist [facility] Phosphorus, pl 3.8 2.3 - 4.5 mg/dL [facility] Blood 06/18/2023 11:5 2 PM [employer] WORKER 06/19/2023 12:16 AM COMPANY [employer] WORKER Ayse Macias PROFESSOR OF NURSING LAB BLOOD ORDERABLES Final Result Performing Organization Address [facility] de Phone Number [facility] [place] [address] * Magnesium (06/18/2023 11:52 PM COMPANY LA[employer] WORKER) Pathologist [facility] Magnesium 2.0 1.4 - 2.5 mg/dL [facility] Blood 06/18/2023 11:5 2 PM [employer] WORKER 06/19/2023 12:16 AM [employer] WORKER Ayse Macias PROFESSOR OF NURSING LAB BLOOD ORDERABLES Final Result Performing Organization Address [facility] Co de Phone Number [facility] [place] [address] * (ABNORMAL) CBC without differential (06/18/2023 11:52 PM COMPANY [employer]DR[employer] WORKER) [facility] WBC 9.6 3.8 - 9.9 K/cumm [facility] Hgb 8.5(L) 13.0 - 17.5 g/dL [facility] Comment:Large delta with no apparant cause, correlate with clinical context and redraw if indicated. spoke to MARTITA MARTINEZ RN Hct 27.0(L) 38.9 - 50.3 % [facility] Plt 422(H) 150 - 400 K/cumm [facility] MPV 9.2 9.1 - 12.3 fL [facility] RBC 2.98(L) 4.30 - 5.80 M/cumm [facility] MCV 90.6 81.3 - 96.4 fL [facility] MCH 28.5 27.1 - 33.3 pg [facility] MCHC 31.5(L) 32.3 - 35.7 g/dL [facility] RDW CV 14.1 11.1 - 14.9 % [facility] RDW SD 46.4 35.7 - 48.1 fL [facility] NRBC abs 0.00 0.00 - 0.01 K/cumm [facility] Blood 06/18/2023 11:5 2 PM [employer] WORKER 06/19/2023 12:17 AM [employer] WORKER us Ayse Macias PROFESSOR OF NURSING LAB BLOOD ORDERABLES Final Result Performing Organization Address City/State/[facility] Co de Phone Number [facility] Department [place] [address] * Critical Care (06/18/2023 11:38 AM COMPANY [employer] WORKER) Narrative Dank Villa MD - 06/18/2023 11:38 AM [employer] WORKER Dank Villa MD ? 06/18/2023 12:19 PM Critical Care Performed by: Dank Villa MD Authorized by: Dank Villa MD ?? CRITICAL CARE: ??Team: ??OTHER ??Shift: ??AM ??Level of Billing: ??Critical Care ??My time spent with this patient was 75 minutes: Critical Provider Statement: I have seen and examined the patient on this day of service. I have reviewed and confirmed the history, physical exam, laboratory and radiologic data as documented in the signed ICU note. I have reviewed and discussed my treatment plan with the ICU team and other medical/service consultant staff, making frequent assessments and decisions [...] life-threatening deterioration of the following conditions: ? I spent time documenting in the medical record, I spent time discussing the management of this critically ill patient with consultants and the medical staff and I spent time reviewing and interpreting data from bedside monitors, laboratory results, and imaging us Dank Villa MD IN CLINIC/BEDSIDE ORDERAB LES Final Result * eGFR (06/18/2023 3:04 AM COMPANY [employer] WORKER) [facility] eGFR >90 >=60 mL/min/1. 73 m2 [facility] Comment: Interpretive Data Reference Interval Normal ?>/= [...] interpretive data was last reviewed 2021. Blood 06/18/2023 3:04 AM [employer] WORKER 06/18/2023 3:21 AM [employer] WORKER us Ayse Macias NP LAB BLOOD ORDERABLES Final Result [facility] Department [place] [address] * (ABNORMAL) Comprehensive metabolic panel (06/18/2023 3:04 AM COMPANY [employer] WORKER) Sodium 136 135 - 145 mmol/L [facility] Potassium, pl 4.3 3.3 - 4.9 mmol/L [facility] Comment:Hemolyzed; Potassium value may be falsely elevated by as much as 0.6-1.0 mmol/L. Suggest redraw and reanalysis. Chloride 104 97 - 110 mmol/L [facility] CO2 21(L) 22 - 32 mmol/L [facility] Anion gap 11 2 - 15 mmol/L [facility] BUN 13 6 - 25 mg/dL [facility] Creatinine 0.84 0.80 - 1.30 mg/dL [facility] Glucose 113 70 - 199 mg/dL [facility] Comment: Interpretive Data Fasting glucose >/= [...] interpretive data was last revised 2022. Calcium 8.5 8.5 - 10.3 mg/dL [facility] Bilirubin, total 0.2 0.1 - 1.2 mg/dL [facility] Protein, pl 7.4 6.5 - 8.5 g/dL [facility] Albumin 2.8(L) 3.5 - 5.0 g/dL [facility] Alk phos 87 40 - 130 Units/L [facility] ALT 18 7 - 55 Units/L [facility] AST 34 10 - 50 Units/L [facility] Comment:Hemolyzed; result ma y be falsely elevated Blood 06/18/2023 3:04 AM [employer] WORK[employer] 06/18/2023 3:21 AM [employer] WORKER Ayse Macias PROFESSOR OF NURSING LAB BLOOD ORDERABLES Final Result Performing Organization Address [facility] Co de Phone Number [facility] [place] [address] * Phosphorus (06/18/2023 3:04 AM COMPANY [employer] WORKER) Phosphorus, pl 2.9 2.3 - 4.5 mg/dL [facility] Blood 06/18/2023 3:04 AM [employer] WORKER 06/18/2023 3:21 AM [employer] WORKER Ayse Macias PROFESSOR OF NURSING LAB BLOOD ORDERABLES Final Result Performing Organization Address [facility] de Phone Number [facility] [place] [address] * Magnesium (06/18/2023 3:04 AM COMPANY [employer] WORKER) Magnesium 2.2 1.4 - 2.5 mg/dL [facility] Blood 06/18/2023 3:04 AM COMPANY [employer] WORKER 06/18/2023 3:21 AM COMPANY [employer] WORKER Ayse Macias PROFESSOR OF NURSING LAB BLOOD ORDERABLES Final Result Performing Organization Address [facility] de Phone Number [facility] [place] [address] * CBC without differential (06/18/2023 3:04 AM COMPANY [employer] WORKER) WBC 6.4 3.8 - 9.9 K/cumm [facility] Hgb 13.2 13.0 - 17.5 g/dL [facility] Hct 40.9 38.9 - 50.3 % [facility] Plt 328 150 - 400 K/cumm [facility] MPV 9.3 9.1 - 12.3 fL [facility] RBC 4.61 4.30 - 5.80 M/cumm [facility] MCV 88.7 81.3 - 96.4 fL [facility] MCH 28.6 27.1 - 33.3 pg [facility] MCHC 32.3 32.3 - 35.7 g/dL [facility] RDW CV 14.0 11.1 - 14.9 % [facility] RDW SD 45.2 35.7 - 48.1 fL [facility] NRBC abs 0.00 0.00 - 0.01 K/cumm [facility] Blood 06/18/2023 3:04 AM [employer] WORK[employer] 06/18/2023 3:21 AM [employer] WORKER us Ayse Macias PROFESSOR OF NURSING LAB BLOOD ORDERABLES Final Result [facility] Department [place] [address] * (ABNORMAL) Triglycerides (06/18/2023 3:04 AM [employer] WORKER) Triglycerides 216(H) <=149 mg/dL [facility] Comment: Interpretive Data Ages < or = 9 years ??Acceptable: ? <75 mg/dL ??Borderline high: ??75-99 mg/dL ??High: ? >or= 100 mg/dL Ages 10 to 20 years ??Acceptable: ? <90 mg/dL ??Borderline high: ??90-129 mg/dL ??High: ? >or= 130 mg/dL Ages > or = 20 years ??Desirable: ?<150 mg/dL ??Borderline high: ??150-199 mg/dL ??High: ? 200-499 mg/dL ?Very high: ?? >or= 499 mg/dL Literature References: 1. Expert Panel on Integrated Guidelines for Cardiovascular Health and Risk Reduction in Children and Adolescents. Pediatrics 2011;128:S213 2. NCEP Expert Panel. Circulation 2004;110:227 Current Interpretive Data was last revised on 2018. Blood 06/18/2023 3:04 AM [employer] 06/18/2023 3:21 AM [employer] Kristine Underwood NP LAB BLOOD ORDERABLES Final R esult Performing Organization Address [facility] Co de Phone Number [facility] Department [place] [address] * POCT glucose (06/17/2023 8:55 AM [employer] WORK[employer]) Glucose, POC 86 70 - 199 mg/dL [facility] Blood 06/17/2023 8:55 AM [employer] 06/17/2023 8:55 AM [employer] Faustino Herrera MD LAB POCT ORDERABLES - ROSIE CE Final Result Performing Organization Address [facility] Co de Phone Number [facility] Department [place] [place] [address] * Critical Care (06/17/2023 6:58 AM [employer]) Narrative Mehul Brooks MD - 06/17/2023 6:58 AM [employer] Kristine Underwood NP ? 06/17/2023 ??5:01 PM Critical Care Performed by: Kristine Underwood NP Authorized by: Kristine Underwood NP ?? CRITICAL CARE: ??Team: ??83 CTICU ??Shift: ??AM ??Level of Billing: ??Critical Care ??My time spent with this patient was 80 minutes: Critical Provider Statement: I have seen and examined the patient on this day of service. I have reviewed and confirmed the history, physical exam, laboratory and radiologic data as documented in the signed ICU note. I have reviewed and discussed my treatment plan with the ICU team and other medical/service consultant staff, making frequent assessments and decisions [...] life-threatening deterioration of the following conditions: ? I spent time reviewing and interpreting data from bedside monitors, laboratory results, and imaging, I spent time discussing the management of this critically ill patient with consultants and the medical staff and I spent time documenting in the medical record Kristine Underwood PROFESSOR OF NURSING IN CLINIC/BEDSIDE ORDERABLES Final Result * Potassium, whole blood (06/17/2023 5:51 AM [employer] WORK[employer]) Pathologist [facility] Potassium, bld 3.8 3.3 - 4.9 mmol/L [facility] Blood 06/17/2023 5:51 AM [employer] 06/17/2023 6:00 AM [employer] Sreekanth Armstrong PROFESSOR OF NURSING LAB BLOOD ORDERABLES Sally l Result [facility] Department [place] [address] * eGFR (06/17/2023 12:00 AM [employer] WORKER) Pathologist [facility] eGFR >90 >=60 mL/min/1. 73 m2 [facility] Comment: Interpretive Data Reference Interval Normal [...] interpretive data was last reviewed 2021. Blood 06/17/2023 06/17/2023 12: 16 AM [employer] us Ayse Macias NP LAB BLOOD ORDERABLES Final Result [facility] Department [place] [address] * (ABNORMAL) Comprehensive metabolic panel (06/17/2023 12:00 AM [employer] WORK[employer]) Sodium 138 135 - 145 mmol/L [facility] Potassium, pl 3.7 3.3 - 4.9 mmol/L [facility] Chloride 107 97 - 110 mmol/L [facility] CO2 21(L) 22 - 32 mmol/L [facility] Anion gap 10 2 - 15 mmol/L [facility] BUN 7 6 - 25 mg/dL [facility] Creatinine 0.71(L) 0.80 - 1.30 mg/dL [facility] Glucose 117 70 - 199 mg/dL [facility] Comment: Interpretive Data Fasting glucose >/= [...] interpretive data was last revised 2022. Calcium 8.3(L) 8.5 - 10.3 mg/dL [facility] Bilirubin, total 0.2 0.1 - 1.2 mg/dL [facility] Protein, pl 7.4 6.5 - 8.5 g/dL [facility] Albumin 3.2(L) 3.5 - 5.0 g/dL [facility] Alk phos 92 40 - 130 Units/L [facility] ALT 14 7 - 55 Units/L [facility] AST 14 10 - 50 Units/L [facility] Blood 06/17/2023 06/17/2023 12: 16 AM [employer] Ayse Macias PROFESSOR OF NURSING LAB BLOOD ORDERABLES Final Result [facility] Department [place] [address] * Phosphorus (06/17/2023 12:00 AM [employer]) Phosphorus, pl 2.3 2.3 - 4.5 mg/dL [facility] Blood 06/17/2023 06/17/2023 12: 16 AM [employer] Ayse Macias PROFESSOR OF NURSING LAB BLOOD ORDERABLES Final Result Performing Organization Address City/[facility]/ZIP Co de Phone Number [facility] Department [place] [address] * Magnesium (06/17/2023 12:00 AM [employer] WORK[employer]) Magnesium 1.9 1.4 - 2.5 mg/dL [facility] Blood 06/17/2023 06/17/2023 12: 16 AM [employer] Ayse Macias PROFESSOR OF NURSING LAB BLOOD ORDERABLES Final Result Performing Organization Address City/[facility]/ZIP Co de Phone Number [facility] Department [place] [address] * (ABNORMAL) CBC without differential (06/17/2023 12:00 AM [employer] WORK[employer]) WBC 11.3(H) 3.8 - 9.9 K/cumm [facility] Hgb 9.4(L) 13.0 - 17.5 g/dL [facility] Hct 29.2(L) 38.9 - 50.3 % [facility] Plt 470(H) 150 - 400 K/cumm [facility] MPV 9.3 9.1 - 12.3 fL [facility] RBC 3.27(L) 4.30 - 5.80 M/cumm [facility] MCV 89.3 81.3 - 96.4 fL [facility] MCH 28.7 27.1 - 33.3 pg [facility] MCHC 32.2(L) 32.3 - 35.7 g/dL [facility] RDW CV 13.5 11.1 - 14.9 % [facility] RDW SD 44.3 35.7 - 48.1 fL [facility] NRBC abs 0.00 0.00 - 0.01 K/cumm [facility] Blood 06/17/2023 06/17/2023 12: 17 AM [employer] Ayse Macias PROFESSOR OF NURSING LAB BLOOD ORDERABLES Final Result [facility] [place] [address] * Potassium, whole blood (06/16/2023 8:47 PM [employer] WORK[employer]) Pathologist [facility] Potassium, bld 3.5 3.3 - 4.9 mmol/L [facility] Blood 06/16/2023 8:47 PM [employer] 06/16/2023 8:59 PM [employer] us Sreekanth Armstrong PROFESSOR OF NURSING LAB BLOOD ORDERABLES Sally l Result [facility] Department [place] [place] [address] * XR Chest 1 View (06/16/2023 7:29 PM [employer]) Anatomical Region Laterality Modality Body, Chest N/A Computed Radiogr aphy 06/17/2023 10:3 3 AM [employer] Impressions 06/17/2023 10:33 AM [employer] Comparison 06/13/2023. 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 Heart size remains within normal limits. ??Cardiomediastinal silhouette stable. New focal right upper lung opacity may represent atelectasis. Attention on follow-up examination recommended. ??The left lung is clear. No pneumothorax or pleural effusion seen. Electronically signed by: James Alvarado M.D. Narrative 06/17/2023 10:33 AM [employer] EXAMINATION: 1 view chest radiograph Procedure Note James Alvarado MD - 06/17/2023 EXAMINATION: 1 view chest radiograph IMPRESSION: Comparison 06/13/2023. 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 Heart size remains within normal limits. Cardiomediastinal silhouette stable. New focal right upper lung opacity may represent atelectasis. Attention on follow-up examination recommended. The left lung is clear. No pneumothorax or pleural effusion seen. Electronically signed by: James Alvarado M.D. Sreekanth Armstrong PROFESSOR OF NURSING IMG XR PROCEDURES Final R esult * Critical Care (06/16/2023 6:40 PM [employer] WORK[employer]) Narrative Mehul Brooks MD - 06/16/2023 6:40 PM [employer] Deniz Ireland PA ? 06/17/2023 ??5:26 AM Critical Care Performed by: Deniz Ireland PA Authorized by: Deniz Ireland PA ?? CRITICAL CARE: ??Team: ??83 CTICU ??Shift: ??PM ??Level of Billing: ??Subsequent Hospital Visit Level 3 ??My time spent with this patient was 75 minutes: Critical Provider Statement: I have seen and examined the patient on this day of service. I have reviewed and confirmed the history, physical exam, laboratory, and radiographic data as documented in the ICU note. I have reviewed and discussed my treatment plan with the patient's team and other medical/service consultant staff. This time was in addition to and separate from care provided by other practitioners on this day of service. ? I spent time reviewing and interpreting data from bedside monitors, laboratory results, and imaging, I spent time discussing the management of this critically ill patient with consultants and the medical staff and I spent time documenting in the medical record us Deniz BRADFORD IN CLINIC/BEDSIDE ORDERAB LES Final Result * (ABNORMAL) Potassium, whole blood (06/16/2023 10:35 AM [employer] WORK[employer]) Potassium, bld 3.1(L) 3.3 - 4.9 mmol/L [facility] Blood 06/16/2023 10:3 5 AM [employer] WORK[employer] 06/16/2023 10:45 AM [employer] WORK[employer] Faustino Herrera MD LAB BLOOD ORDERABLES Final Result Performing Organization Address City/[facility]/ZIP Co de Phone Number [facility] Department [place] [address] * Vancomycin level trough (06/16/2023 9:40 AM [employer] WORKER) Pathologist [facility] Vancomycin trough 17.2 10.0 - 20.0 mcg/mL [facility] Comment:Reviewed Blood 06/16/2023 9:40 AM [employer] WORK[employer] 06/16/2023 9:54 AM [employer] WORKER Sreekanth Armstrong NP LAB BLOOD ORDERABLES Sally l Result [facility] [place] [place] [address] * Critical Care (06/16/2023 6:40 AM COMPANY [employer] WORKER) Narrative Mehul Brooks MD - 06/16/2023 6:40 AM [employer] WORK[employer] Sreekanth Armstrong NP ? 06/16/2023 ??4:38 PM Critical Care Performed by: Sreekanth Armstrong NP Authorized by: Sreekanth Armstrong NP ?? CRITICAL CARE: ??Team: ??83 CTICU ??Shift: ??AM ??Level of Billing: ??Critical Care ??My time spent with this patient was 90 minutes: Critical Provider Statement: I have seen and examined the patient on this day of service. I have reviewed and confirmed the history, physical exam, laboratory and radiologic data as documented in the signed ICU note. I have reviewed and discussed my treatment plan with the ICU team and other medical/service consultant staff, making frequent assessments and decisions [...] life-threatening deterioration of the following conditions: ? I spent time reviewing and interpreting data from bedside monitors, laboratory results, and imaging, I spent time discussing the management of this critically ill patient with consultants and the medical staff and I spent time documenting in the medical record us Sreekanth Armstrong PROFESSOR OF NURSING IN CLINIC/BEDSIDE ORDERAB LES Final Result * Potassium, whole blood (06/16/2023 6:00 AM [employer] WORKER) Pathologist [facility] Potassium, bld 3.4 3.3 - 4.9 mmol/L [facility] Blood 06/16/2023 6:00 AM [employer] WORKER 06/16/2023 6:07 AM [employer] WORK[employer] us Sreekanth Armstrong PROFESSOR OF NURSING LAB BLOOD ORDERABLES Sally l Result [facility] [place] [address] * MRI Spine Total Complete W WO Contrast (06/16/2023 5:19 AM COMPANY [employer] WORKER) Anatomical Region Laterality Modality Spine N/A Magnetic Resonan ce 06/16/2023 9:57 AM [employer] WORK[employer] Impressions 06/16/2023 11:37 AM COMPANY [employer] WORKER 1. ??No evidence of infection in the spine. 2. ??Mild right paraspinal musculature edema at L4-L5. ??No fluid collection. Dictated by: Dustin Esteves M.D. The radiology attending physician has personally reviewed this study, and had reviewed and/or edited this written report and agrees with it. Electronically signed by: Arnulfo Macedo MD, PHD Narrative 06/16/2023 11:37 AM COMPANY [employer] WORKER EXAMINATION: 1. Magnetic resonance imaging (MRI) of the cervical spine without and with contrast 2. Magnetic resonance imaging (MRI) of the thoracic spine without and with contrast 3. Magnetic resonance imaging (MRI) of the lumbar spine without and with contrast HISTORY: Concern for spinal injection. TECHNIQUE: Multiplanar multi-weighted MRI of the cervical spine was performed without and with intravenous contrast using the standard protocol. Multiplanar multi-weighted MRI of the thoracic was performed without and with intravenous contrast using the standard protocol. Multiplanar multi-weighted MRI of the lumbar spine was performed without and with intravenous contrast using the standard protocol. Contrast information: 20 mL Gadoterate Meglumine COMPARISON: MRI thoracic spine dated 06/13/2023 FINDINGS: CERVICAL SPINE: The alignment of the cervical [...] stenosis. THORACIC SPINE: 12 rib-bearing thoracic vertebra. ??The alignment of the thoracic spine is normal. [...] stenosis. There is no spinal canal stenosis. LUMBAR SPINE: The alignment of the lumbar [...] is no spinal canal stenosis. Procedure Note Arnulfo Macedo MD PhD - 06/16/2023 EXAMINATION: 1. Magnetic resonance imaging (MRI) of the cervical spine without and with contrast 2. Magnetic resonance imaging (MRI) of the thoracic spine without and with contrast 3. Magnetic resonance imaging (MRI) of the lumbar spine without and with contrast HISTORY: Concern for spinal injection. TECHNIQUE: Multiplanar multi-weighted MRI of the cervical spine was performed without and with intravenous contrast using the standard protocol. Multiplanar multi-weighted MRI of the thoracic was performed without and with intravenous contrast using the standard protocol. Multiplanar multi-weighted MRI of the lumbar spine was performed without and with intravenous contrast using the standard protocol. Contrast information: 20 mL Gadoterate Meglumine COMPARISON: MRI thoracic spine dated 06/13/2023 FINDINGS: CERVICAL SPINE: The alignment of the cervical [...] stenosis. There is no spinal canal stenosis. LUMBAR SPINE: The alignment of the lumbar [...] There is no spinal canal stenosis. IMPRESSION: 1. No evidence of infection in the spine. 2. Mild right paraspinal musculature edema at L4-L5. No fluid collection. Dictated by: Dustin Esteves M.D. The radiology attending physician has personally reviewed this study, and had reviewed and/or edited this written report and agrees with it. Electronically signed by: Arnulfo Macedo MD, PHD Faustino Herrera MD IMG MRI PROCEDURES Final R esult * (ABNORMAL) Potassium, whole blood (06/16/2023 1:13 AM [employer] WORK[employer]) Potassium, bld 3.1(L) 3.3 - 4.9 mmol/L [facility] Blood 06/16/2023 1:13 AM [employer] WORK[employer] 06/16/2023 1:22 AM [employer] WORK[employer] Sreekanth Armstrong PROFESSOR OF NURSING LAB BLOOD ORDERABLES Sally l Result [facility] [place] [address] * eGFR (06/16/2023 12:00 AM COMPANY [employer] WORKER) [facility] eGFR >90 >=60 mL/min/1. 73 m2 [facility] Comment: Interpretive Data Reference Interval Normal [...] interpretive data was last reviewed 2021. Blood 06/16/2023 06/16/2023 12: 21 AM [employer] WORK[employer] us Ayse Macias NP LAB BLOOD ORDERABLES Final Result [facility] Department of Laboratories [place], [place] [id number] * (ABNORMAL) Comprehensive metabolic panel (06/16/2023 12:00 AM COMPANY [employer] WORKER) [facility] Sodium 138 135 - 145 mmol/L [facility] Potassium, pl 3.0(L) 3.3 - 4.9 mmol/L [facility] Chloride 105 97 - 110 mmol/L [facility] CO2 23 22 - 32 mmol/L [facility] Anion gap 10 2 - 15 mmol/L [facility] BUN 9 6 - 25 mg/dL [facility] Creatinine 0.96 0.80 - 1.30 mg/dL [facility] Glucose 127 70 - 199 mg/dL [facility] Comment: Interpretive Data Fasting glucose >/= [...] 2022. Calcium 9.0 8.5 - 10.3 mg/dL [facility] Bilirubin, total 0.2 0.1 - 1.2 mg/dL [facility] Protein, pl 7.9 6.5 - 8.5 g/dL [facility] Albumin 3.4(L) 3.5 - 5.0 g/dL [facility] Alk phos 92 40 - 130 Units/L [facility] ALT 11 7 - 55 Units/L [facility] AST 10 10 - 50 Units/L [facility] Blood 06/16/2023 06/16/2023 12: 21 AM [employer] WORK[employer] Ayse Macias NP LAB BLOOD ORDERABLES Final Result [facility] Department [place] [address] * Phosphorus (06/16/2023 12:00 AM COMPANY [employer] WORKER) [facility] Phosphorus, pl 3.3 2.3 - 4.5 mg/dL [facility] Blood 06/16/2023 06/16/2023 12: 21 AM [employer] WORKER Ayse K. Gilberto PROFESSOR OF NURSING LAB BLOOD ORDERABLES Final Result [facility] [place] [address] * Magnesium (06/16/2023 12:00 AM COMPANY [employer] WORKER) Pathologist [facility] Magnesium 2.2 1.4 - 2.5 mg/dL [facility] Blood 06/16/2023 06/16/2023 12: 21 AM [employer] WORK[employer] Ayse Macias PROFESSOR OF NURSING LAB BLOOD ORDERABLES Final Result Performing Organization Address [facility] Co de Phone Number [facility] [place] [address] * (ABNORMAL) CBC without differential (06/16/2023 12:00 AM COMPANY [employer] WORKER) WBC 9.6 3.8 - 9.9 K/cumm [facility] Hgb 9.7(L) 13.0 - 17.5 g/dL [facility] Hct 29.9(L) 38.9 - 50.3 % [facility] Plt 490(H) 150 - 400 K/cumm [facility] MPV 9.3 9.1 - 12.3 fL [facility] RBC 3.37(L) 4.30 - 5.80 M/cumm [facility] MCV 88.7 81.3 - 96.4 fL [facility] MCH 28.8 27.1 - 33.3 pg [facility] MCHC 32.4 32.3 - 35.7 g/dL [facility] RDW CV 13.4 11.1 - 14.9 % [facility] RDW SD 43.8 35.7 - 48.1 fL [facility] NRBC abs 0.00 0.00 - 0.01 K/cumm [facility] Blood 06/16/2023 06/16/2023 12: 22 AM [employer] WORK[employer] Ayse Macias PROFESSOR OF NURSING LAB BLOOD ORDERABLES Final Result Performing Organization Address [facility]/ZIP Co de Phone Number [facility] Department [place] [address] * (ABNORMAL) Triglycerides (06/16/2023 12:00 AM COMPANY [employer] WORKER) Triglycerides 222(H) <=149 mg/dL [facility] Comment: Interpretive Data Ages < or = 9 years ??Acceptable: ? <75 mg/dL ??Borderline high: ??75-99 mg/dL ??High: ? >or= 100 mg/dL Ages 10 to 20 years ??Acceptable: ? <90 mg/dL ??Borderline high: ??90-129 mg/dL ??High: ? >or= 130 mg/dL Ages > or = 20 years ??Desirable: ?<150 mg/dL ??Borderline high: ??150-199 mg/dL ??High: ? 200-499 mg/dL ?Very high: ?? >or= 499 mg/dL Literature References: 1. Expert Panel on Integrated Guidelines for Cardiovascular Health and Risk Reduction in Children and Adolescents. Pediatrics 2011;128:S213 2. NCEP Expert Panel. Circulation 2004;110:227 Current Interpretive Data was last revised on 2018. Blood 06/16/2023 06/16/2023 12: 21 AM [employer] WORK[employer] us Sreekanth Armstrong PROFESSOR OF NURSING LAB BLOOD ORDERABLES Sally l Result Performing Organization Address [facility] Co de Phone Number [facility] Department [place] [address] * Critical Care (06/15/2023 9:04 PM COMPANY [employer] WORKER) Narrative Mehul Brooks MD - 06/15/2023 9:04 PM [employer] WORKER Deniz Ireland PA ? 06/16/2023 ??5:21 AM Critical Care Performed by: Deniz Ireland PA Authorized by: Deniz Ireland PA ?? CRITICAL CARE: ??Team: ??83 CTICU ??Shift: ??PM ??Level of Billing: ??Critical Care ??My time spent with this patient was 90 minutes: Critical Provider Statement: I have seen and examined the patient on this day of service. I have reviewed and confirmed the history, physical exam, laboratory and radiologic data as documented in the signed ICU note. I have reviewed and discussed my treatment plan with the ICU team and other medical/service consultant staff, making frequent assessments and decisions [...] life-threatening deterioration of the following conditions: ? I spent time reviewing and interpreting data from bedside monitors, laboratory results, and imaging, I spent time discussing the management of this critically ill patient with consultants and the medical staff and I spent time documenting in the medical record us Deniz BRADFORD IN CLINIC/BEDSIDE ORDERAB LES Final Result * Critical Care (06/15/2023 7:15 AM COMPANY [employer] WORKER) Narrative Mehul Brooks MD - 06/15/2023 7:15 AM [employer] WORKER Sreekanth Armstrong NP ? 06/15/2023 ??4:42 PM Critical Care Performed by: Sreekanth Armstrong NP Authorized by: Sreekanth Armstrong NP ?? CRITICAL CARE: ??Team: ??83 CTICU ??Shift: ??AM ??Level of Billing: ??Critical Care ??My time spent with this patient was 90 minutes: Critical Provider Statement: I have seen and examined the patient on this day of service. I have reviewed and confirmed the history, physical exam, laboratory and radiologic data as documented in the signed ICU note. I have reviewed and discussed my treatment plan with the ICU team and other medical/service consultant staff, making frequent assessments and decisions [...] life-threatening deterioration of the following conditions: ? I spent time reviewing and interpreting data from bedside monitors, laboratory results, and imaging, I spent time discussing the management of this critically ill patient with consultants and the medical staff and I spent time documenting in the medical record us Sreekanth Armstrong NP IN CLINIC/BEDSIDE ORDERAB LES Final Result * eGFR (06/14/2023 8:31 PM COMPANY [employer] WORKER) [facility] eGFR >90 >=60 mL/min/1. 73 m2 [facility] Comment: Interpretive Data Reference Interval Normal ?>/= [...] interpretive data was last reviewed 2021. Blood 06/14/2023 8:31 PM COMPANY [employer] WORKER 06/14/2023 8:46 PM COMPANY [employer] WORKER us Ayse Macias NP LAB BLOOD ORDERABLES Final Result [facility] Department [place] [address] * (ABNORMAL) Comprehensive metabolic panel (06/14/2023 8:31 PM COMPANY [employer] WORKER) Sodium 139 135 - 145 mmol/L [facility] Potassium, pl 3.9 3.3 - 4.9 mmol/L [facility] Chloride 106 97 - 110 mmol/L [facility] CO2 21(L) 22 - 32 mmol/L [facility] Anion gap 12 2 - 15 mmol/L [facility] BUN 10 6 - 25 mg/dL [facility] Creatinine 0.86 0.80 - 1.30 mg/dL [facility] Glucose 127 70 - 199 mg/dL [facility] Comment: Interpretive Data Fasting glucose >/= [...] Calcium 8.9 8.5 - 10.3 mg/dL [facility] Bilirubin, total 0.4 0.1 - 1.2 mg/dL [facility] Protein, pl 7.9 6.5 - 8.5 g/dL [facility] Albumin 3.5 3.5 - 5.0 g/dL [facility] Alk phos 99 40 - 130 Units/L [facility] ALT 19 7 - 55 Units/L [facility] AST 18 10 - 50 Units/L [facility] Blood 06/14/2023 8:31 PM COMPANY [employer] WORKER 06/14/2023 8:46 PM [employer] LA[employer]Y WORKER us Ayse K. Gilberto PROFESSOR OF NURSING LAB BLOOD ORDERABLES Final Result Performing Organization Address City/[facility]/ZIP Co de Phone Number [facility] [place] [address] * Phosphorus (06/14/2023 8:31 PM COMPANY LAUNDRY WORKER) [facility] Phosphorus, pl 3.5 2.3 - 4.5 mg/dL [facility] Blood 06/14/2023 8:31 PM COMPANY [employer]DR[employer] WORKER 06/14/2023 8:46 PM COMPANY [employer]UNDR[employer] WORKER Ayse Macias PROFESSOR OF NURSING LAB BLOOD ORDERABLES Final Result Performing Organization Address [facility] Co de Phone Number [facility] Department [place] [address] * Magnesium (06/14/2023 8:31 PM COMPANY LAUNDRY WORKER) [facility] Magnesium 1.8 1.4 - 2.5 mg/dL [facility] Blood 06/14/2023 8:31 PM COMPANY [employer] WORKER 06/14/2023 8:46 PM COMPANY LAUNDR[employer] WORKER Ayse Macias PROFESSOR OF NURSING LAB BLOOD ORDERABLES Final Result Performing Organization Address [facility] Co de Phone Number [facility] Department [place] [address] * (ABNORMAL) CBC without differential (06/14/2023 8:31 PM COMPANY LAUN[employer] WORKER) [facility] WBC 11.7(H) 3.8 - 9.9 K/cumm [facility] Hgb 9.9(L) 13.0 - 17.5 g/dL [facility] Hct 30.5(L) 38.9 - 50.3 % [facility] Plt 513(H) 150 - 400 K/cumm [facility] MPV 9.0(L) 9.1 - 12.3 fL [facility] RBC 3.43(L) 4.30 - 5.80 M/cumm [facility] MCV 88.9 81.3 - 96.4 fL [facility] MCH 28.9 27.1 - 33.3 pg [facility] MCHC 32.5 32.3 - 35.7 g/dL [facility] RDW CV 13.2 11.1 - 14.9 % [facility] RDW SD 43.1 35.7 - 48.1 fL [facility] NRBC abs 0.00 0.00 - 0.01 K/cumm [facility] Blood 06/14/2023 8:31 PM COMPANY [employer] WORKER 06/14/2023 8:46 PM COMPANY LAUN[employer] WORKER us Ayse Macias NP LAB BLOOD ORDERABLES Final Result [facility] Department [place] [address] * Critical Care (06/14/2023 7:02 PM COMPANY LAUNDRY WORKER) Narrative Mehul Brooks MD - 06/14/2023 7:02 PM COMPANY LAUNDRY WORKER Su Lu NP ? 06/15/2023 ??4:26 AM Critical Care Performed by: Su Lu NP Authorized by: Su Lu NP ?? CRITICAL CARE: ??Team: ??83 CTICU ??Shift: ??PM ??Level of Billing: ??Critical Care ??My time spent with this patient was 75 minutes: Critical Provider Statement: I have seen and examined the patient on this day of service. I have reviewed and confirmed the history, physical exam, laboratory and radiologic data as documented in the signed ICU note. I have reviewed and discussed my treatment plan with the ICU team and other medical/service consultant staff, making frequent assessments and decisions [...] life-threatening deterioration of the following conditions: ? I spent time reviewing and interpreting data from bedside monitors, laboratory results, and imaging, I spent time discussing the management of this critically ill patient with consultants and the medical staff and I spent time documenting in the medical record us Su Lu NP IN CLINIC/BEDSIDE ORDERA BLES Final Result * Vancomycin level trough Draw trough 30 minutes prior to 4th dose. (06/14/2023 5:51 PM COMPANY LAUN[employer] WORKER) Vancomycin trough 15.5 10.0 - 20.0 mcg/mL [facility] Blood 06/14/2023 5:51 PM COMPANY LAUNDRY WORKER 06/14/2023 6:08 PM COMPANY LAUNDRY WORKER Narrative [facility] - 06/14/2023 6:42 PM COMPANY LAUNDRY WORKER Draw trough 30 minutes prior to 4th dose. us Faustino Herrera MD LAB BLOOD ORDERABLES Final Result [facility] Department [place] [address] * WI ARTL CATHJ/CANNULJ MNTR/TRANSFUSION SPX PRQ (06/14/2023 1:52 PM COMPANY LAUNDRY WORKER) Narrative Sreekanth Armstrong NP - 06/14/2023 1:52 PM COMPANY LAUNDRY WORKER Sreekanth Armstrong NP ? 06/14/2023 ??1:55 PM Arterial Line Insertion Date/Time: 06/14/2023 1:52 PM Performed by: Sreekanth Armstrong NP Authorized by: Sreekanth Armstrong NP ?? [place] Protocol: RN Notified of Procedure: yes ?? Patient's stated name/ matches armband: ??Yes Allergies confirmed: yes ?? Consent form signed, dated, timed; matches correct patient, intended procedure and site: ??Yes and no consent form due to emergent status Imaging: ??Pertinent imaging reviewed, correctly oriented and match to patient identifiers Lab/Diag test results: ??Pertinent lab/diag tests reviewed and match to patient identifiers Supplies, devices and special equipment are available: n/a ?? Site/side marked: n/a ??Immediately prior to the procedure a time out was called: a verbal verification by the procedure participants confirmed correct patient identity, correct site/side marked and visible (if applicable); agreement on procedure to be done; and correct patient positioning ?? Indications: multiple ABGs and hemodynamic monitoring ?? Location: ??Right radial Anesthesia: ??Local infiltration Local anesthetic: ??Lidocaine 1% Patient skin preparation: chlorhexidine ?? Ultrasound guidance: ??Used for needle insertion, landmarks identified and sterile probe cover used Patient preparation: ??Cap, full body drape, gloves, gown, handwashing, mask, towels and sterile probe cover Leo's test normal?: Yes ?? Catheter gauge: ??20 Single percutaneous needle puncture: Yes ?? Seldinger technique used: Yes ?? Number of attempts: ??1 Placement confirmed with arterial waveform: Yes ?? Post-procedure: ??Line sutured and dressing applied Post-procedure CMS: ??Normal Complications: no complications noted during insertion ?? I personally performed the above procedure which is separate from my critical care time. Sreekanth Armstrong NP Post Procedure Debrief: All guidewires, needles, sponges or other items are accounted for: yes ?? Any special post procedure monitoring, testing or other considerations: n/a ?? All specimens identified, labeled and matched to patient identification: n/a ?? Responsible green party for transporting specimen(s) to lab determined: n/a ?? Result [facility] Sreekanth Armstrong NP IV THERAPY ORDERABLES [facility] al Result * HIV 1/2 Antibody plus p24 Antigen Blood (06/14/2023 11:08 AM COMPANY LAUNDRY WORKER) Pathologist [facility] HIV 1/2 ab + p24 ag Nonreactive Nonreactive [facility] Comment:Nonreactive for HIV- 1 antigen and HIV-1/HIV-2 antibodies. No laboratory evidence of HIV infection. If acute HIV infection is suspected, consider testing for HIV-1 RNA. Current interpretive data was last revised on 22. Blood 06/14/2023 11:0 8 AM COMPANY LA[employer]DRY WORKER 06/14/2023 11:27 AM COMPANY LAUNDRY WORKER us Faustino Herrera MD LAB MICROBIOLOGY - GENERAL ORDERABLES Final Result [facility] Department [place] [address] * Critical Care (06/14/2023 7:05 AM COMPANY LA[employer]DRY WORKER) Narrative Mehul Brooks MD - 06/14/2023 7:05 AM COMPANY [employer] WORKER Sreekanth Armstrong NP ? 06/14/2023 ??5:02 PM Critical Care Performed by: Sreekanth Armstrong NP Authorized by: Sreekanth Armstrong NP ?? CRITICAL CARE: ??Team: ??83 CTICU ??Shift: ??AM ??Level of Billing: ??Critical Care [...] plan with the ICU team and other medical/service consultant staff, making frequent assessments and decisions [...] life-threatening deterioration of the following conditions: ? I spent time reviewing and interpreting data from bedside monitors, laboratory results, and imaging, I spent time discussing the management of this critically ill patient with consultants and the medical staff and I spent time documenting in the medical record us Sreekanth Arsmtrong NP IN CLINIC/BEDSIDE ORDERAB LES Final Result * eGFR (06/14/2023 12:14 AM COMPANY LAUNDRY WORKER) [facility] eGFR >90 >=60 mL/min/1. 73 m2 [facility] Comment: Interpretive Data Reference Interval Normal ?>/= [...] interpretive data was last reviewed 2021. Blood 06/14/2023 12:1 4 AM COMPANY [employer] WORKER 06/14/2023 12:31 AM COMPANY [employer] WORKER us Ayse Macias PROFESSOR OF NURSING LAB BLOOD ORDERABLES Final Result [facility] Department [place] [address] * (ABNORMAL) Comprehensive metabolic panel (06/14/2023 12:14 AM COMPANY LAUNDRY WORKER) Pathologist [facility] Sodium 138 135 - 145 mmol/L [facility] Potassium, pl 3.9 3.3 - 4.9 mmol/L [facility] Chloride 107 97 - 110 mmol/L [facility] CO2 20(L) 22 - 32 mmol/L [facility] Anion gap 11 2 - 15 mmol/L [facility] BUN 15 6 - 25 mg/dL [facility] Creatinine 0.90 0.80 - 1.30 mg/dL [facility] Glucose 122 70 - 199 mg/dL [facility] Comment: Interpretive Data Fasting glucose >/= [...] 2022. Calcium 9.2 8.5 - 10.3 mg/dL [facility] Bilirubin, total 0.4 0.1 - 1.2 mg/dL [facility] Protein, pl 8.0 6.5 - 8.5 g/dL [facility] Albumin 3.5 3.5 - 5.0 g/dL [facility] Alk phos 100 40 - 130 Units/L [facility] ALT 23 7 - 55 Units/L [facility] AST 14 10 - 50 Units/L [facility] Blood 06/14/2023 12:1 4 AM COMPANY [employer]Y WORKER 06/14/2023 12:31 AM COMPANY LAUN[employer]Y WORKER Ayse Macias PROFESSOR OF NURSING LAB BLOOD ORDERABLES Final Result [facility] Department [place] [address] * Lactate, whole blood (06/14/2023 12:14 AM COMPANY LAUNDRY WORKER) Lactate, bld 1.8 0.7 - 2.0 mmol/L [facility] Blood 06/14/2023 12:1 4 AM COMPANY LAUNDRY WORKER 06/14/2023 12:26 AM COMPANY LA[employer]DRY WORKER Ayse Macias NP LAB BLOOD ORDERABLES Final Result [facility] Department [place] [address] * Phosphorus (06/14/2023 12:14 AM COMPANY LAUNDRY WORKER) Phosphorus, pl 3.1 2.3 - 4.5 mg/dL [facility] Blood 06/14/2023 12:1 4 AM COMPANY LA[employer]DRY WORKER 06/14/2023 12:30 AM COMPANY LA[employer]DRY WORKER Ayse Macias PROFESSOR OF NURSING LAB BLOOD ORDERABLES Final Result Performing Organization Address City/[facility] Co de Phone Number [facility] [place] [address] * Magnesium (06/14/2023 12:14 AM COMPANY LAUNDRY WORKER) [facility] Magnesium 2.1 1.4 - 2.5 mg/dL [facility] Blood 06/14/2023 12:1 4 AM COMPANY LAUNDRY WORKER 06/14/2023 12:30 AM COMPANY LA[employer]DRY WORKER Ayse Macias PROFESSOR OF NURSING LAB BLOOD ORDERABLES Final Result Performing Organization Address [facility] de Phone Number [facility] [place] [address] * (ABNORMAL) CBC without differential (06/14/2023 12:14 AM COMPANY LAUNDRY WORKER) [facility] WBC 9.9 3.8 - 9.9 K/cumm [facility] Hgb 9.3(L) 13.0 - 17.5 g/dL [facility] Hct 28.7(L) 38.9 - 50.3 % [facility] Plt 479(H) 150 - 400 K/cumm [facility] MPV 8.9(L) 9.1 - 12.3 fL [facility] RBC 3.25(L) 4.30 - 5.80 M/cumm [facility] MCV 88.3 81.3 - 96.4 fL [facility] MCH 28.6 27.1 - 33.3 pg [facility] MCHC 32.4 32.3 - 35.7 g/dL [facility] RDW CV 13.6 11.1 - 14.9 % [facility] RDW SD 44.1 35.7 - 48.1 fL [facility] NRBC abs 0.00 0.00 - 0.01 K/cumm [facility] Blood 06/14/2023 12:1 4 AM COMPANY LAUNDRY WORKER 06/14/2023 12:31 AM COMPANY LAUNDRY WORKER us Ayse Macias NP LAB BLOOD ORDERABLES Final Result Performing Organization Address City/[facility] Co de Phone Number [facility] [place] [address] * Histoplasma Antigen Urine (06/13/2023 11:13 PM COMPANY LAUNDRY WORKER) Pathologist [facility] Histo Ag Ur result None Detected None Detected [facility] Histo Ag Ur interp Negative Negative [facility] Comment: Result Interpretation: Reference interval: None Detected Results reported as ng/mL in 0.20 - 20.00 ng/mL range Results above 20.00 ng/mL are reported as 'Positive, Above the Limit of Quantification' Testing Performed by: [employer], [address] [place] [address] [place] [facility]. This test was developed and its performance characteristics determined by [employer]. It has not been cleared or approved by the FDA; however, FDA clearance or approval is not currently required for clinical use. The results are not intended to be used as the sole means for clinical diagnosis or patient management decisions. Interpretative data updated 07/28/2020 Urine 06/13/2023 11:1 3 PM COMPANY LAUNDRY WORKER 06/14/2023 12:33 AM COMPANY LAUNDRY WORKER us Mateo Diaz NP LAB MICROBIOLOGY - GENERAL OR DERABLES Final Result Performing Organization Address [facility] Co [place] [address] * Critical Care (06/13/2023 10:43 PM COMPANY LAUNDRY WORKER) Narrative Mehul Brooks MD - 06/13/2023 10:43 PM COMPANY LA[employer]Y WORKER Ayse Macias NP ? 06/14/2023 ??5:40 AM Critical Care Performed by: Ayse Macias NP Authorized by: Ayse Macias NP ?? CRITICAL CARE: ??Team: ??83 CTICU ??Shift: ??PM ??Level of Billing: ??Critical Care ??My time spent with this patient was 150 minutes: Critical Provider Statement: I have seen and examined the patient on this day of service. I have reviewed and confirmed the history, physical exam, laboratory and radiologic data as documented in the signed ICU note. I have reviewed and discussed my treatment plan with the ICU team and other medical/service consultant staff, making frequent assessments and decisions [...] life-threatening deterioration of the following conditions: ? I spent time reviewing and interpreting data from bedside monitors, laboratory results, and imaging, I spent time discussing the management of this critically ill patient with consultants and the medical staff and I spent time documenting in the medical record us Ayse Macias NP IN CLINIC/BEDSIDE ORDERABLE S Final Result * MRI Thoracic Spine WO Contrast (06/13/2023 10:43 PM COMPANY LAUNDRY WORKER) Anatomical Region Laterality Modality Spine N/A Magnetic Resonan ce 06/14/2023 8:45 AM COMPANY LAUNDRY WORKER Impressions 06/14/2023 8:45 AM COMPANY LAUNDRY WORKER 1. ??Only sagittal T2 weighted images were obtained. 2. ??No acute abnormality of the thoracic spine with normal appearance of intervertebral disks and endplates without evidence of discitis/osteomyelitis. Electronically signed by: Gus Su MD Narrative 06/14/2023 8:45 AM COMPANY LAUNDRY WORKER EXAMINATION: Magnetic resonance imaging (MRI) of the thoracic spine without contrast HISTORY: Lumbar back pain with elevated inflammatory markers. ??A recent history of lumbar drain placement TECHNIQUE: Sagittal T2-weighted MRI of the thoracic spine was performed without intravenous contrast using the standard protocol. COMPARISON: None Available. FINDINGS: Only the sagittal T2-weighted images are available for interpretation. Straightening of the thoracic spine is noted with loss of normal kyphosis. Vertebral bodies demonstrate normal signal intensity on T2-weighted images. There are no compression fractures. Thoracic spinal cord is normal in appearance. Intervertebral disks have normal height and signal intensity. Artifacts are associated with patient's known aortic stent. The disks are normal in configuration. There is no significant facet arthropathy. There is no significant neuroforaminal stenosis. There is no spinal canal stenosis. Procedure Note Gus Su MD - 06/14/2023 EXAMINATION: Magnetic resonance imaging (MRI) of the thoracic spine without contrast HISTORY: Lumbar back pain with elevated inflammatory markers. A recent history of lumbar drain placement TECHNIQUE: Sagittal T2-weighted MRI of the thoracic spine was performed without intravenous contrast using the standard protocol. COMPARISON: None Available. FINDINGS: Only the sagittal T2-weighted images are available for interpretation. Straightening of the thoracic spine is noted with loss of normal kyphosis. Vertebral bodies demonstrate normal signal intensity on T2-weighted images. There are no compression fractures. Thoracic spinal cord is normal in appearance. Intervertebral disks have normal height and signal intensity. Artifacts are associated with patient's known aortic stent. The disks are normal in configuration. There is no significant facet arthropathy. There is no significant neuroforaminal stenosis. There is no spinal canal stenosis. IMPRESSION: 1. Only sagittal T2 weighted images were obtained. 2. No acute abnormality of the thoracic spine with normal appearance of intervertebral disks and endplates without evidence of discitis/osteomyelitis. Electronically signed by: Gus Su MD Akash Spears MD [facility] MRI PROCEDURES Final Result * Potassium, whole blood (06/13/2023 7:11 PM COMPANY LAUNDRY WORKER) Potassium, bld 3.7 3.3 - 4.9 mmol/L [facility] Blood 06/13/2023 7:11 PM COMPANY LAUNDRY WORKER 06/13/2023 7:22 PM COMPANY LAUNDRY WORKER Mateo Diaz NP LAB BLOOD ORDERABLES Final Re sult [facility] Department [place] [address] * ECG 12 lead (06/13/2023 6:04 PM COMPANY LAUNDRY WORKER) Ventricular Rate EKG/Min 80 BPM [facility] Atrial Rate 80 BPM [facility] WI-Interval (MSEC) 164 ms [facility] QRS-Interval (MSEC) 92 ms [facility] QT-Interval (MSEC) 398 ms [facility] QTc 459 ms [facility] P [place] 32 degrees [facility] R [place] -10 degrees [facility] T [place] 170 degrees [facility] Diagnosis Normal sinus rhythm Minimal voltage criteria for LVH, may be normal variant ( R in aVL ) ST & T wave abnormality, consider lateral ischemia Abnormal ECG When compared with ECG of 10-MAY-2023 18:19, Vent. rate has decreased BY ??39 BPM Criteria for Septal infarct are no longer Present T wave inversion now evident in Lateral leads Confirmed by ADAM VALVERDE M.D ([id number]) on 06/20/2023 9:48:46 PM [facility] 06/13/2023 6:04 PM COMPANY LAUNDRY WORKER 06/20/2023 9:48 PM COMPANY LAUNDRY WORKER Mateo Diaz NP ECG ORDERABLES Final Result [facility] * Histoplasma Antibody Blood (06/13/2023 6:00 PM COMPANY LAUNDRY WORKER) Histoplasma Ab, mycelial CF Negative Negative [facility] Histoplasma Ab, yeast CF Negative Negative [facility] Histoplasma Ab, Immunodiffusion Negative Negative [facility] Comment: A negative complement fixation and immunodiffusion (CF/ID) result does not exclude the diagnosis of histoplasmosis. ?? Repeat testing by CF/ID in 1-2 weeks if clinically indicated. Test Performed by: [facility] [address] [place] [address] [employer] Worker: Chris Perez M.D. Ph.D.; CLIA# [id number] Blood 06/13/2023 6:00 PM COMPANY LAUNDRY WORKER 06/13/2023 6:41 PM COMPANY LAUNDRY WORKER Mateo Diaz NP LAB MICROBIOLOGY - GENERAL OR DERABLES Final Result Performing Organization Address [facility] Co de Phone Number [place] [address] * Q fever ab w rflx to immunofluorescence Blood (06/13/2023 6:00 PM COMPANY LAUNDRY WORKER) Q fever ab scrn w titer rflx ser Negative Negative [facility] Comment: No antibodies to Q Fever (Coxiella burnetii) detected. ?? Repeat testing on a new sample collected in 2-3 weeks if acute Q Fever is suspected. ?? ADDITIONAL INFORMATION This test was developed and its performance characteristics determined by [facility] in a manner consistent with CLIA requirements. This test has not been cleared or approved by the U.S. Food and Drug Administration. Test Performed by: [facility] [id number] [place] [address] [employer] Worker: Chris Perez M.D. Ph.D.; CLIA# [id number] Blood 06/13/2023 6:00 PM COMPANY LAUNDRY WORKER 06/13/2023 6:27 PM COMPANY LAUNDRY WORKER Mateo Diaz NP LAB MICROBIOLOGY - GENERAL OR DERABLES Final Result Performing Organization Address [facility] de Phone Number [facility] [place] [address] * Bartonella antibody panel Blood (06/13/2023 6:00 PM COMPANY LAUNDRY WORKER) B Henselae, IgG <1:128 <1:128 titer [facility] B Henselae, IgM <1:20 <1:20 titer [facility] B. Lewis, IgG <1:128 <1:128 titer [facility] B. Lewis, IgM <1:20 <1:20 titer [facility] Comment: ADDITIONAL INFORMATION This test was developed and its performance characteristics determined by [facility] in a manner consistent with CLIA requirements. This test has not been cleared or approved by the U.S. Food and Drug Administration. Test Performed by: [facility] [address] [place] [address] [employer] Worker: Chris Perez M.D. Ph.D.; CLIA# [id number] Blood 06/13/2023 6:00 PM COMPANY LA[employer]DR[employer] WORKER 06/13/2023 6:41 PM COMPANY LAUNDRY WORKER Mateo Diaz NP LAB MICROBIOLOGY - GENERAL OR DERABLES Final Result Performing Organization Address [facility] Co de Phone Number [facility] Department [place] [address] * Troponin I high-sensitivity 6-hour (06/13/2023 6:00 PM COMPANY LAUNDRY WORKER) Trop I hs 6 <=35 ng/L [facility] Comment: Interpretive Data For further hscTnI resources including the diagnostic algorithm and an aid in interpretation, copy and paste this link: https://bjhlab.testcatalog.org/show/hsTrop-1 Current Interpretive Data last revised 2019. Trop I hs delta See Comment ng/L [facility] Comment:Inappropriate collec tion time to report a delta. Trop I hs pct delta See Comment % [facility] Comment:Inappropriate collec tion time to report a delta. Trop I hs interp See Comment [facility] Comment:Inappropriate collec tion time to report a delta. Blood 06/13/2023 6:00 PM COMPANY LAUNDRY WORKER 06/13/2023 6:15 PM COMPANY LAUNDRY WORKER Akash Spears MD LAB BLOOD ORDERABLES Sally l Result Performing Organization Address [facility]/ZIP Co de Phone Number [facility] Department [place] [address] * Critical Care (06/13/2023 5:36 PM COMPANY LAUNDRY WORKER) Narrative Mehul Brooks MD - 06/13/2023 5:36 PM COMPANY LAUNDRY WORKER Mateo Diaz NP ? 06/13/2023 ??6:43 PM Critical Care Performed by: Mateo Diaz NP Authorized by: Mateo Diaz NP ?? CRITICAL CARE: ??Team: ??83 CTICU ??Shift: ??AM ??Level of Billing: ??Critical Care ??My time spent with this patient was 105 minutes: Critical Provider Statement: I have seen and examined the patient on this day of service. I have reviewed and confirmed the history, physical exam, laboratory and radiologic data as documented in the signed ICU note. I have reviewed and discussed my treatment plan with the ICU team and other medical/service consultant staff, making frequent assessments and decisions [...] life-threatening deterioration of the following conditions: ? I spent time reviewing and interpreting data from bedside monitors, laboratory results, and imaging, I spent time discussing the management of this critically ill patient with consultants and the medical staff and I spent time documenting in the medical record Mateo Diaz NP IN CLINIC/BEDSIDE ORDERABLES Final Result * Oxycodone Confirmation, Urine (06/13/2023 4:58 PM COMPANY [employer]) Oxycodone Conf, Ur Does Not Confirm CutOff 50 ng/mL JAIRON COLON Oxymorphone Conf, Ur Does Not Confirm CutOff [...] interpretive data was last revised 2020. Urine 06/13/2023 4:58 PM COMPANY [employer] 06/13/2023 5:12 PM [employer] Jae Toledo MD LAB URINE ORDERABLES Final Result [facility] Department [place] [address] * (ABNORMAL) Drugs of Abuse Screen, Urine with Reflex Confirmation (06/13/2023 4:58 PM [employer]) Amphetamine, ur Not Detected CutOff 500ng/mL JAIRON [facility] Comment: Interpretive Data - Amphetamines: ??Samples containing greater than 500 ng/mL d-methamphetamine ??or other cross-reacting amphetamine compounds are reported as positive. ??Amphetamine immunoassays are subject to significant false positive rates due to cross-reactivity of non-amphetamine drugs. Confirmatory testing required for definitive results. Current Interpretive Data was last reviewed 2022. Barbiturates, ur Not Detected CutOff 200ng/mL JAIRON [facility] Comment: Interpretive Data - Barbiturates: ??Samples containing greater than 200 ng/mL secobarbital or other cross-reacting barbiturate compounds are reported as positive. ??False positive and false negative results are possible. Confirmatory testing required for definitive results. Current Interpretive Data was last reviewed 2022. Benzodiazepines, ur Not Detected CutOff 100ng/mL JAIRON [facility] Comment: Interpretive Data - Benzodiazepines: ??Samples containing greater than 100 ng/mL nordiazepam or other cross-reacting compounds are reported as positive. False positive and false negative results are possible. Confirmatory testing required for definitive results. Current Interpretive Data was last reviewed 2022. Cannabinoids, ur Screen Positive, presumptive (A) CutOff 50 ng/mL JAIRON [facility] Comment: Interpretive Data - Cannabinoids: ??Samples containing greater than 50 ng/mL delta-9 THC -COOH or other cross-reacting compounds are reported as positive. ??False positive and false negative results are possible. ??Confirmatory testing required for definitive results. Current Interpretive Data was last reviewed 2022. Cocaine, ur Not Detected CutOff 150ng/mL [facility] Comment: Interpretive Data - Cocaine: ??Samples containing greater than 150 ng/mL benzoylecgonine or other cross-reacting compounds are reported as positive. False positive and false negative results are possible. Confirmatory testing required for definitive results. Current Interpretive Data was last reviewed 2022. Fentanyl, Ur Not Detected Cutoff 1 ng/mL [facility] Comment: Interpretive Data - Fentanyl: ??Samples containing greater than 1 ng/mL fentanyl or other cross-reacting fentanyl compounds are reported as positive. ??False positive and false negative results are possible. Confirmatory testing required for definitive results. Current Interpretive Data was last reviewed 2022. Methadone, ur Not Detected CutOff 300ng/mL [facility] Comment: Interpretive Data - Methadone: ??Samples containing greater than 300 ng/mL d,l-methadone or other cross-reacting compounds are reported as positive. ??False positive and false negative results are possible. Confirmatory testing required for definitive results. Current Interpretive Data was last reviewed 2022. Opiates, ur Not Detected CutOff 300ng/mL [facility] Comment: Interpretive Data - Opiates: ??Samples containing greater than 300 ng/mL morphine or other cross-reacting compounds are reported as positive. ??False positive and false negative results are possible. Confirmatory testing required for definitive results. Current Interpretive Data was last reviewed 2022. Oxycodone, ur Screen Positive, presumptive (A) CutOff 100ng/mL [facility] Comment: Interpretive Data - Oxycodone: ??Samples containing greater than 100 ng/mL oxycodone or other cross-reacting compounds are reported as ??positive. ??False positive and false negative results are possible. Confirmatory testing required for definitive results. Current Interpretive Data was last reviewed 2022. Phencyclidine, ur Not Detected CutOff 25 ng/mL [facility] Comment: Interpretive Data - Phencyclidine: ??Samples containing greater than 25 ng/mL phencyclidine or other cross-reacting compounds are reported as positive. ??False positive and false negative results are possible. Confirmatory testing required for definitive results. Current Interpretive Data was last reviewed 2022. Urine Creatinine 72 mg/dL [facility] Comment: Interpretive Data Urine Creatinine: < 10 mg/dL is extremely dilute = or > 10 but < 20 mg/dL is dilute = or > 20 mg/dL is normal Current Interpretive Data was last revised on 2017. Urine 06/13/2023 4:58 PM [employer] 06/13/2023 5:08 PM COMPANY [employer] WORK[employer] Narrative [facility] - 06/13/2023 5:55 PM [employer] Drug of Abuse screening is performed by immunoassay for medical purposes only. ??This is not to be used for Pain Management purposes. ??If Detected, confirmation testing will be performed for Amphetamines, Cocaine, Fentanyl, Methadone, Opiates, Oxycodone or Phencyclidine. Jae Toledo MD LAB URINE ORDERABLES Final Result Performing Organization Address [facility] de Phone Number [facility] [place] [address] * Troponin I high-sensitivity 4-hour (06/13/2023 4:58 PM [employer]) Trop I hs 5 <=35 ng/L [facility] Comment: Interpretive Data For further hscTnI resources including the diagnostic algorithm and an aid in interpretation, copy and paste this link: https://bjhlab.testcatalog.org/show/hsTrop-1 Current Interpretive Data last revised 2019. Trop I hs delta 1 ng/L [facility] Trop I hs interp Insignificant [facility] Blood 06/13/2023 4:58 PM [employer] 06/13/2023 5:12 PM [employer] Akash Spears MD LAB BLOOD ORDERABLES Sally l Result Performing Organization Address [facility] Co de Phone Number [facility] Department [place] [place] [address] * [place] ARTL CATHJ/CANNULJ MNTR/TRANSFUSION SPX PRQ (06/13/2023 4:41 PM COMPANY [employer] WORK[employer]) Narrative Nigel Mercado MD - 06/13/2023 4:41 PM [employer] Torin Alas Jr., MD ? 06/13/2023 ??4:41 PM Arterial line Date/Time: 06/13/2023 4:41 PM Performed by: Torin Alas Jr., MD Authorized by: Nigel Mercado MD ?? [place] Protocol: ??RN Notified of Procedure: yes ?Informed consent: ??Risks, benefits, alternatives discussed ??Patient's stated name/ matches armband: ??Yes ??Allergies confirmed: yes ?Consent form signed, dated, timed; matches correct patient, intended procedure and site: ??No consent form due to emergent status ??Imaging: ??Pertinent imaging reviewed, correctly oriented and match to patient identifiers ??Lab/Diag test results: ??Pertinent lab/diag tests reviewed and match to patient identifiers ??Supplies, devices and special equipment are available: yes ?Site/side marked: yes ?Immediately prior to the procedure a time out was called: a verbal verification by the procedure participants confirmed correct patient identity, correct site/side marked and visible (if applicable); agreement on procedure to be done; and correct patient positioning ?? Indications: ??Indications: hemodynamic monitoring ?? Pre-procedure details: ??Skin preparation: ??2% Chlorhexidine Sedation: ??Sedation used: no ?? Anesthesia (see MAR for exact dosages): ??Anesthesia method: ??Local infiltration ??Local anesthetic: ??Lidocaine 1% WITH epi Procedure details: ??Location: ??R radial ??Leo's test performed: yes ?Needle gauge: ??22 G ??Placement technique: ??Ultrasound guided ??Ultrasound guidance used for: ??Real-time guidance ??Sterile ultrasound techniques: Sterile gel and sterile probe covers were used ?Number of attempts: ??1 ??Transducer: waveform confirmed ?? Post-procedure details: ??Post-procedure: ??Sterile dressing applied and sutured ??CMS: ??Normal ??Patient tolerance of procedure: ??Tolerated well, no immediate complications Post Procedure Debrief: ??All guidewires, needles, sponges or other items are accounted for: yes ?Any special post procedure monitoring, testing or other considerations: n/a ?All specimens identified, labeled and matched to patient identification: n/a ?Responsible green party for transporting specimen(s) to lab determined: n/a ?? us Nigel Mercado MD IN CLINIC/BEDSIDE ORDERABLES Final Result * Troponin I high-sensitivity 2-hour (06/13/2023 2:42 PM COMPANY [employer] WORKER) Trop I hs 5 <=35 ng/L [facility] Comment: Interpretive Data For further hscTnI resources including the diagnostic algorithm and an aid in interpretation, copy and paste this link: https://bjhlab.testcatalog.org/show/hsTrop-1 Current Interpretive Data last revised 2019. Trop I hs delta 1 ng/L [facility] Trop I hs interp Insignificant [facility] Blood 06/13/2023 2:42 PM COMPANY [employer] WORKER 06/13/2023 2:59 PM [employer] WORKER us Akash Spears MD LAB BLOOD ORDERABLES Sally l Result [facility] Department [place] [address] * [place] CRITICAL CARE ILL/INJURED PATIENT INIT 30-74 MIN (06/13/2023 2:39 PM COMPANY [employer] WORKER) Narrative Guerrero De Los Santos MD - 06/13/2023 2:39 PM COMPANY [employer] WORK[employer] Guerrero De Los Santos MD ? 06/13/2023 ??2:47 PM Critical Care Performed by: Guerrero De Los Santos MD Authorized by: Guerrero De Los Santos MD ?? Critical care provider statement: As reflected in the history, physical exam, orders, notes, and/or MDM, I was personally present while the patient was critically ill and provided critical care services for 45 minutes, excluding time involved in separately billable procedures. ??Critical care was necessary to treat or prevent imminent or life-threatening deterioration of the following condition(s): ?? unstable vital signs ?? severe cardiac condition, aortic dissection/aneurysm and hypertensive crisis ?? acute respiratory insufficiency ??Critical care was time spent by me providing the following: ? continuous telemetry, interpretation of bedside monitors, imaging, and arterial/venous lab draws and serial bedside patient exams ?? initiation and active titration of vasoactive medications and initiation of rate controlling agent ?? Consult to vascular surgery ? supplemental oxygen ?? prepared for emergent procedure/operating room ?? I provided emergent necessary critical care [...] with the appropriate designated surrogate decision-maker. I admitted this patient to an Intensive Care unit (ICU) and discussed management with the admitting team. I spent time documenting in the medical record. Guerrero De Los Santos MD IN CLINIC/BEDSIDE ORDERABL ES Edited Result - Final * Respiratory pathogen panel Nasopharyngeal (06/13/2023 2:35 PM COMPANY [employer] WORKER) Pathologist [facility] Influenza A RNA Not Detected Not Detected [facility] Influenza B RNA Not Detected Not Detected [facility] RSV RNA Not Detected Not Detected [facility] COVID-19 RNA Not Detected Not Detected [facility] Coronavirus 229E RNA Not Detected Not Detected [facility] Coronavirus HKU1 RNA Not Detected Not Detected [facility] Coronavirus NL63 RNA Not Detected Not Detected [facility] Coronavirus OC43 RNA Not Detected Not Detected [facility] Adenovirus DNA Not Detected Not Detected [facility] Metapneumovirus RNA Not Detected Not Detected [facility] Rhinovirus/Enterov irus RNA Not Detected Not Detected [facility] Parainfluenza 1 RNA Not Detected Not Detected [facility] Parainfluenza 2 RNA Not Detected Not Detected [facility] Parainfluenza 3 RNA Not Detected Not Detected [facility] Parainfluenza 4 RNA Not Detected Not Detected [facility] B. pertussis DNA Not Detected Not Detected [facility] B. parapertussis DNA Not Detected Not Detected [facility] C. pneumoniae DNA Not Detected Not Detected [facility] M. pneumoniae DNA Not Detected Not Detected [facility] Nasopharyngeal 06/13/2023 2: 35 PM [employer] WORK[employer] 06/13/2023 2:47 PM COMPANY [employer] WORKER Narrative [facility] - 06/13/2023 3:41 PM COMPANY [employer]Y WORKER Is the Patient experiencing symptoms consistent with COVID?->Unknown Reason for testing?->Bed placement or semi-private room Surveillance testing for transplant patient?->No ??Interpretive Data The [employer] FilmArray Respiratory Panel (RP2.1) assay is a [...] assay has FDA clearance for testing of PROFESSOR OF NURSING swabs. ??The performance of additional specimen types has been assessed by the performing laboratory. ??The performance characteristics of this assay have been determined by [facility] Molecular Infectious Disease Laboratory. Current interpretive data was last revised on 22. Guerrero De Los Santos MD LAB MICROBIOLOGY - GENERAL ORDERABLES Final Result Performing Organization Address [facility]/ZIP Co de Phone Number [facility] [place] [address] * (ABNORMAL) Urinalysis, microscopic only (06/13/2023 2:07 PM COMPANY [employer] WORKER) WBC, ur 0-5 0 - 5 /HPF [facility] RBC, ur 3-5(A) 0 - 2 /HPF [facility] Epithelial cells, squamous, ur 1-5 0 - 5 /HPF [facility] Bacteria, ur 1+(A) [facility] Mucous, ur Present(A) [facility] Hyaline casts, ur 6-10 0 - 10 /LPF [facility] Culture Reflex Comment Reflex conditions for urine culture (WBC >10) not met. [facility] Urine 06/13/2023 2:07 PM COMPANY [employer] WORKER 06/13/2023 2:12 PM [employer] WORK[employer] Akash Spears MD LAB URINE ORDERABLES Sally l Result Performing Organization Address [facility]/ZIP Co de Phone Number [facility] Department [place] [address] * (ABNORMAL) Urinalysis reflex to microscopic and culture Urine (06/13/2023 2:07 PM COMPANY [employer] WORKER) Color, ur Yellow Yellow [facility] Clarity, ur Clear Clear [facility] Specific gravity, ur >1.042(H) 1.003 - 1.030 [facility] pH, urine 6.0 [facility] Comment: Interpretive Data ? Urine pH is affected by diet, medications, systemic acid-base disturbances, and renal tubular function. ??pH may affect urinary stone formation. ??For example, urine pH below 6.0 may help reduce the tendency for calcium phosphate stones and pH greater than 6.0 may reduce the tendency for uric acid stone formation. Source: [facility] [employer] Current Interpretive Data was last revised on 2017 Protein, ur ql 1+(A) Negative [facility] Glucose, ur ql Negative Negative [facility] Ketones, ur Negative Negative [facility] Bilirubin, ur Negative Negative [facility] Blood, ur Trace(A) Negative [facility] Urobilinogen, ur <2.0 <2.0 mg/dL [facility] Nitrite, ur Negative Negative [facility] Leukocyte esterase, ur Negative Negative [facility] UA reflex comment Reflex to microscopic UA will be performed. [facility] Urine 06/13/2023 2:07 PM COMPANY [employer] WORKER 06/13/2023 2:12 PM COMPANY [employer] WORKER us Akash Spears MD LAB MICROBIOLOGY - GENERA L ORDERABLES Final Result [facility] Department [place] [address] * XR Chest 1 Vw Portable (06/13/2023 1:58 PM COMPANY [employer] WORK[employer]) Anatomical Region Laterality Modality Body, Chest N/A Computed Radiogr aphy 06/13/2023 2:10 PM COMPANY [employer] WORKER Impressions 06/13/2023 2:10 PM COMPANY [employer] WORKER Comparison is made to prior study dated 06/10/2023. There are unchanged findings of endovascular stenting involving the distal arch, descending thoracic aorta, and left subclavian artery, for management of the known dissection. ??No focal pneumonic consolidation or pulmonary edema. ??No pleural effusion or pneumothorax. ??Heart and mediastinal contours are stable, and the heart is normal in size. Electronically signed by: Heber Leos M.D. Narrative 06/13/2023 2:10 PM COMPANY [employer] WORKER EXAMINATION: 1 view chest radiograph Procedure Note Heber Leos MD - 06/13/2023 EXAMINATION: 1 view chest radiograph IMPRESSION: Comparison is made to prior study dated 06/10/2023. There are unchanged findings of endovascular stenting involving the distal arch, descending thoracic aorta, and left subclavian artery, for management of the known dissection. No focal pneumonic consolidation or pulmonary edema. No pleural effusion or pneumothorax. Heart and mediastinal contours are stable, and the heart is normal in size. Electronically signed by: Heber Leos M.D. us Akash Spears MD IMG XR PROCEDURES Final R esult * CTA Chest Abdomen Pelvis (06/13/2023 1:47 PM COMPANY LA[employer] WORKER) Anatomical Region Laterality Modality Body N/A Computed Tomogra phy 06/13/2023 3:23 PM COMPANY [employer] WORKER Impressions 06/13/2023 4:07 PM COMPANY [employer] WORKER 1. ??45 mm x 48 mm thoracoabdominal dissection with stent graft in place. There has been no interval change in the size of the aneurysmal dilatation of the false lumen since the prior examination. No evidence of stent migration. No evidence of increased extent of the false lumen perfusion. 2. 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 Dictated by: Silverio Gonzalez MD The radiology attending physician has personally reviewed this study, and had reviewed and/or edited this written report and agrees with it. Electronically signed by: Collins Wills M.D. Narrative 06/13/2023 4:07 PM COMPANY [employer] WORK[employer] EXAMINATION: ??CT ANGIOGRAPHY OF THE CHEST, ABDOMEN AND PELVIS WITH AND WITHOUT CONTRAST HISTORY: History of aortic dissection status post TEVAR 05/02/2023 with revision 06/05/2023 with weakness and back pain concerning for endoleak status. TECHNIQUE: CT angiography of the chest, abdomen and pelvis was performed prior to and following the uneventful intravenous administration of 90 ml [id number]-[id number] using the post-endoluminal stent graft protocol. Vascular 3D images were generated on a dedicated workstation and also reviewed. COMPARISON: CT dated 06/10/2023 FINDINGS: VASCULAR FINDINGS: There is a type B aortic dissection with a stent graft in place. ??The proximal attachment site is at the level of the takeoff of the left common carotid artery, and the distal attachment site is in the diaphragmatic hiatus. ??A 2nd stent is present abutting the thoracic stent with distal attachment site at the level of the inferior mesenteric artery takeoff. ??There has been no migration of the graft since the last exam. There is persistent perfusion of the false lumen from the diaphragmatic hiatus to the superior mesenteric artery takeoff and at the inferior aspect of the abdominal stent with the false lumen superior to this perfusion thrombosed, unchanged. ??There is aneurysmal dilatation of the thoracic aorta due to enlargement of the false lumen . ??The maximum diameter of the aneurysm is 45 mm AP x 48 mm [id number]. ??This is stable since the prior exam. ?? There is a fenestration in the thoracic stent with additional stent for the left subclavian artery. ??This stent is patent but kinked. The celiac trunk and superior mesenteric artery arises from the false lumen. The dissection flap propagates into the abdominal aorta terminating in the left common iliac artery. There is a 4 mm pseudoaneurysm at the left common femoral artery access site is more conspicuous on the current study but unchanged in size. NON-VASCULAR FINDINGS: Chest: Lower neck/axilla: No lymphadenopathy. Lung/airway: The trachea and bronchi are clear. ??There is dependent atelectasis at both lungs as well as atelectasis along the thoracic aorta. ??There is a trace left pleural effusion. There is otherwise no focal consolidation or pneumothorax. Cardiac: Heart size is normal. There is no pericardial effusion. Mediastinum/yung: No lymphadenopathy. Thoracic soft tissues: Unremarkable. Abdomen/Pelvis: Hepatobiliary: A hemangioma is present in hepatic segment 4A. ??The liver is otherwise unremarkable. The gallbladder is normal. ??The bile ducts are non-dilated. Pancreas: Normal. Spleen: Normal. Kidneys: Multiple small nonobstructing stones are present in the kidneys. Adrenals: Normal. Gastrointestinal: The stomach is unremarkable. There are no dilated loops of small or large bowel. Mesentery/Retroperitoneum: There is no lymphadenopathy, free air, or free fluid. Pelvis: The urinary bladder appears normal. Prostate is normal. Bones/Soft Tissues: No suspicious lytic or blastic bone lesion. There is no acute osseous abnormality. There is fat stranding left groin compatible with recent arterial access. Procedure Note Collins Wills MD - 06/13/2023 EXAMINATION: CT ANGIOGRAPHY OF THE CHEST, ABDOMEN AND PELVIS WITH AND WITHOUT CONTRAST HISTORY: History of aortic dissection status post TEVAR 05/02/2023 with revision 06/05/2023 with weakness and back pain concerning for endoleak status. TECHNIQUE: CT angiography of the chest, abdomen and pelvis was performed prior to and following the uneventful intravenous administration of 90 ml [id number]-350 using the post-endoluminal stent graft protocol. Vascular 3D images were generated on a dedicated workstation and also reviewed. COMPARISON: CT dated 06/10/2023 FINDINGS: VASCULAR FINDINGS: There is a type B aortic dissection with a stent graft in place. The proximal attachment site is at the level of the takeoff of the left common carotid artery, and the distal attachment site is in the diaphragmatic hiatus. A 2nd stent is present abutting the thoracic stent with distal attachment site at the level of the inferior mesenteric artery takeoff. There has been no migration of the graft since the last exam. There is persistent perfusion of the false lumen from the diaphragmatic hiatus to the superior mesenteric artery takeoff and at the inferior aspect of the abdominal stent with the false lumen superior to this perfusion thrombosed, unchanged. There is aneurysmal dilatation of the thoracic aorta due to enlargement of the false lumen . The maximum diameter of the aneurysm is 45 mm AP x 48 mm [id number]. This is stable since the prior exam. There is a fenestration in the thoracic stent with additional stent for the left subclavian artery. This stent is patent but kinked. The celiac trunk and superior mesenteric artery arises from the false lumen. The dissection flap propagates into the abdominal aorta terminating in the left common iliac artery. There is a 4 mm pseudoaneurysm at the left common femoral artery access site is more conspicuous on the current study but unchanged in size. NON-VASCULAR FINDINGS: Chest: Lower neck/axilla: No lymphadenopathy. Lung/airway: The trachea and bronchi are clear. There is dependent atelectasis at both lungs as well as atelectasis along the thoracic aorta. There is a trace left pleural effusion. There is otherwise no focal consolidation or pneumothorax. Cardiac: Heart size is normal. There is no pericardial effusion. Mediastinum/yung: No lymphadenopathy. Thoracic soft tissues: Unremarkable. Abdomen/Pelvis: Hepatobiliary: A hemangioma is present in hepatic segment 4A. The liver is otherwise unremarkable. The gallbladder is normal. The bile ducts are non-dilated. Pancreas: Normal. Spleen: Normal. Kidneys: Multiple small nonobstructing stones are present in the kidneys. Adrenals: Normal. Gastrointestinal: The stomach is unremarkable. There are no dilated loops of small or large bowel. Mesentery/Retroperitoneum: There is no lymphadenopathy, free air, or free fluid. Pelvis: The urinary bladder appears normal. Prostate is normal. Bones/Soft Tissues: No suspicious lytic or blastic bone lesion. There is no acute osseous abnormality. There is fat stranding left groin compatible with recent arterial access. IMPRESSION: 1. 45 mm x 48 mm thoracoabdominal dissection with stent graft in place. There has been no interval change in the size of the aneurysmal dilatation of the false lumen since the prior examination. No evidence of stent migration. No evidence of increased extent of the false lumen perfusion. 2. A 4 mm pseudoaneurysm is present at the left common femoral artery access site. Dictated by: Silverio Gonzalez MD The radiology attending physician has personally reviewed this study, and had reviewed and/or edited this written report and agrees with it. Electronically signed by: Collins Wills M.D. Akash Spears MD IMG CT PROCEDURES Final R esult * CT Recon Thoracic and Lumbar Spine W Contrast (C) (06/13/2023 1:47 PM [employer]) Anatomical Region Laterality Modality Spine N/A Computed Tomogra phy 06/13/2023 4:10 PM [employer] Impressions 06/13/2023 5:24 PM [employer] 1. ??No evidence for discitis-osteomyelitis or well-defined paravertebral abscess of the visualized thoracic and lumbar spine. 2. ??Postsurgical changes of thoracic endovascular aneurysm repair and aortic dissection stent placement are better evaluated on the dedicated CTA chest, abdomen, and pelvis. Dictated by: Calvin Murrell MD The radiology attending physician has personally reviewed this study, and had reviewed and/or edited this written report and agrees with it. Electronically signed by: Gus Su MD Narrative 06/13/2023 5:24 PM [employer] EXAMINATION: 1. CT of the thoracic spine with contrast 2. CT of the lumbar spine with contrast HISTORY: Abdominal aortic aneurysm status post thoracic endovascular aneurysm repair and dissection stent placement on 06/05/2023. History of drug use. Presenting with acute on chronic low back pain, fever, and chills. TECHNIQUE: Dedicated reconstructions of the thoracic and lumbar spine were generated using data from a CT of the chest, abdomen, and pelvis acquired with intravenous contrast according to standard protocol. COMPARISON: MRI total spine 05/06/2023. FINDINGS: THORACIC SPINE: There are 12 rib-bearing thoracic vertebra. The alignment of the thoracic spine is normal. There is no acute fracture. Vertebral bodies are normal in height without compression fractures. No abnormal endplate irregularities. Intervertebral disk heights are normal. There is no well-defined paravertebral abscess. Postsurgical changes of thoracic endovascular aneurysm repair and dissection stent placement for management of thoracoabdominal aortic dissection which extends to the left common iliac artery are better evaluated on the dedicated CTA chest, abdomen, and pelvis. The disks are normal in configuration. There is no facet hypertrophy. There is no neuroforaminal stenosis. There is no high-grade spinal canal stenosis. LUMBAR SPINE: The alignment of the lumbar spine is normal. There is no acute fracture. The vertebral bodies are normal in height without compression fractures. No abnormal endplate irregularities. The intervertebral disk heights are normal. There is no well-defined paravertebral abscess. The disks are normal in configuration. There is mild lower lumbar facet arthropathy. There is no neuroforaminal stenosis. There is no high-grade spinal canal stenosis. Procedure Note Gus Su MD - 06/13/2023 EXAMINATION: 1. CT of the thoracic spine with contrast 2. CT of the lumbar spine with contrast HISTORY: Abdominal aortic aneurysm status post thoracic endovascular aneurysm repair and dissection stent placement on 06/05/2023. History of drug use. Presenting with acute on chronic low back pain, fever, and chills. TECHNIQUE: Dedicated reconstructions of the thoracic and lumbar spine were generated using data from a CT of the chest, abdomen, and pelvis acquired with intravenous contrast according to standard protocol. COMPARISON: MRI total spine 05/06/2023. FINDINGS: THORACIC SPINE: There are 12 rib-bearing thoracic vertebra. The alignment of the thoracic spine is normal. There is no acute fracture. Vertebral bodies are normal in height without compression fractures. No abnormal endplate irregularities. Intervertebral disk heights are normal. There is no well-defined paravertebral abscess. Postsurgical changes of thoracic endovascular aneurysm repair and dissection stent placement for management of thoracoabdominal aortic dissection which extends to the left common iliac artery are better evaluated on the dedicated CTA chest, abdomen, and pelvis. The disks are normal in configuration. There is no facet hypertrophy. There is no neuroforaminal stenosis. There is no high-grade spinal canal stenosis. LUMBAR SPINE: The alignment of the lumbar spine is normal. There is no acute fracture. The vertebral bodies are normal in height without compression fractures. No abnormal endplate irregularities. The intervertebral disk heights are normal. There is no well-defined paravertebral abscess. The disks are normal in configuration. There is mild lower lumbar facet arthropathy. There is no neuroforaminal stenosis. There is no high-grade spinal canal stenosis. IMPRESSION: 1. No evidence for discitis-osteomyelitis or well-defined paravertebral abscess of the visualized thoracic and lumbar spine. 2. Postsurgical changes of thoracic endovascular aneurysm repair and aortic dissection stent placement are better evaluated on the dedicated CTA chest, abdomen, and pelvis. Dictated by: Calvin Murrell MD The radiology attending physician has personally reviewed this study, and had reviewed and/or edited this written report and agrees with it. Electronically signed by: Gus Su MD Jae Toledo MD IMG CT PROCEDURES Fin al Result * POCT creatinine (06/13/2023 1:20 PM [employer]) Creatinine POC 0.7 0.7 - 1.3 mg/dL [facility] Blood 06/13/2023 1:20 PM [employer] 06/13/2023 1:20 PM [employer] Guerrero De Los Santos MD LAB POCT ORDERABLES - ROSIE CE Final Result [facility] Department [place] [address] * POCUS Cardiac (06/13/2023 1:19 PM [employer]) Anatomical Region Laterality Modality Other 06/13/2023 12:4 1 PM [employer] Narrative 06/13/2023 1:52 PM [employer] Performed by: Nakita Holguin Cardiac: ?Exam type: ??Diagnostic ?Exam Information: ?Indication(s) for Exam: ?Other Indication(s): ??hypertension, hx of aortic dissection ?Exam Occurence: ?Initial ?Findings ?? : ?Pericardial effusion: ??Small ?Right ventricle: ??Indeterminate ?Signs of RV strain: ??Absent ?IVC: ??Not visualized ?Interpretation: ?Pericardial effusion WITHOUT signs of tamponade Electronically signed by Nakita Holguin on Tuesday, June 13, 2023 at 1:23 PM I have reviewed the images & the resident's interpretation. I agree with the findings. Electronically signed by GUERRERO DE LOS SANTOS on Tuesday, June 13, 2023 at 1:52 PM I have reviewed the images & the resident's interpretation. I agree with the findings. Procedure Note Guerrero De Los Santos MD - 06/13/2023 Performed by: Nakita Holguin Cardiac: Exam type: Diagnostic Exam Information: Indication(s) for Exam: Other Indication(s): hypertension, hx of aortic dissection Exam Occurence: Initial Findings : Pericardial effusion: Small Right ventricle: Indeterminate Signs of RV strain: Absent IVC: Not visualized Interpretation: Pericardial effusion WITHOUT signs of tamponade Electronically signed by Nakita Holguin on [place], Elle 15, 2024at 1:23 PM I have reviewed the images & the resident's interpretation. I agree withthe findings. Electronically signed by GUERRERO DE LOS SANTOS on Tuesday, June 13, 2023 at1:52 PM I have reviewed the images & the resident's interpretation. I agree withthe findings. us Guerrero De Los Santos MD POCUS ORDERABLES Final Res ult * POCUS Retroperitoneal (AAA or Renal) (06/13/2023 1:18 PM [employer]) Anatomical Region Laterality Modality Other 06/13/2023 12:4 1 PM [employer] Narrative 06/13/2023 1:51 PM [employer] Performed by: Nakita Holguin v3 : ?Exam Information: ?Exam type: ??Diagnostic ?Indication(s) for Exam: ?Other Indication(s): ??hypertension, hx aortic dissection s/p stent placement ?Findings: ?Was a longitudinal view obtained?: ??Yes ?Interpretation: ?Aneurysm: ??Indeterminate ?Comments: ??first two images sagittal, last two transverse at proximal to mid abdominal aorta. Limited views d/t recent surgical changes w/stent placement Electronically signed by Nakita Holguin on Tuesday, June 13, 2023 at 1:27 PM I have reviewed the images & the resident's interpretation. I agree with the findings. Electronically signed by GUERRERO DE LOS SANTOS on Tuesday, June 13, 2023 at 1:51 PM I have reviewed the images & the resident's interpretation. I agree with the findings. Procedure Note Guerrero De Los Santos MD - 06/13/2023 Performed by: Nakita Holguin v3 : Exam Information: Exam type: Diagnostic Indication(s) for Exam: Other Indication(s): hypertension, hx aortic dissection s/p stentplacement Findings: Was a longitudinal view obtained?: Yes Interpretation: Aneurysm: Indeterminate Comments: first two images sagittal, last two transverse atproximal to mid abdominal aorta. Limited views d/t recent surgical changesw/stent placement Electronically signed by Nakita Holguni on June 13t 1:27 PM I have reviewed the images & the resident's interpretation. I agree withthe findings. Electronically signed by GUERRERO DE LOS SANTOS on Tuesday, June 13, 2023 at1:51 PM I have reviewed the images & the resident's interpretation. I agree withthe findings. us Guerrero De Los Santos MD POCUS ORDERABLES Final Res ult * ECG 12-LEAD (06/13/2023 1:18 PM [employer]) Narrative [facility] - 06/13/2023 1:18 PM [employer] Jae Toledo MD ? 06/13/2023 ??1:22 PM ECG 12 lead Date/Time: 06/13/2023 1:18 PM Performed by: Jae Toledo MD Authorized by: Akash Spears MD ?? Quality: ??Tracing quality: ??Limited by artifact Comments: ?? Comparison is from 06/03/2023. ??Patient is in sinus rhythm with a rate of 83. ??There are T-wave inversions in lead 1 lead 2 aVL V4 V5 V6. ??These were present on previous . ??LVH is present. ??There is no ST deviation. ?? [place] is leftward. Compared to previous, abnormal, but no significant ischemic changes compared to previous. Procedure Note Jae Toledo MD - 06/13/2023 1:18 PM CST Procedure ECG 12 lead Date/Time: 06/13/2023 1:18 PM Performed by: Jae Toledo MD Authorized by: Akash Spears MD Quality: Tracing quality: Limited by artifact Comments: Comparison is from 06/03/2023. Patient is in sinus rhythm with a rateof 83. There are T-wave inversions in lead 1 lead 2 aVL V4 V5 V6. Thesewere present on previous . LVH is present. There is no ST deviation.[place] is leftward. Compared to previous, abnormal, but no significant ischemic changescompared to previous. Jae Toledo MD Resident 06/13/23 1322 us Akash Spears MD ECG ORDERABLES Final Res ult Performing Organization Address City/[facility]/ZIP Co de Phone Number [facility] * eGFR (06/13/2023 1:07 PM [employer]) eGFR >90 >=60 mL/min/1. 73 m2 [facility] Comment: Interpretive Data Reference Interval Normal [...] interpretive data was last reviewed 2021. Blood 06/13/2023 1:07 PM [employer] 06/13/2023 1:25 PM [employer] us Akash Spears MD LAB BLOOD ORDERABLES Sally l Result Performing Organization Address City/[facility]/ZIP Co de Phone Number [facility] Department [place] [address] * (ABNORMAL) Differential, auto (06/13/2023 1:07 PM [employer]) Neutrophil abs 7.4(H) 1.5 - 6.5 K/cumm [facility] Imm gran abs 0.2(H) 0.0 - 0.1 K/cumm [facility] Lymphocyte abs 1.7 0.8 - 3.3 K/cumm [facility] Monocyte abs 1.1(H) 0.2 - 0.8 K/cumm [facility] Eosinophil abs 0.1 0.0 - 0.5 K/cumm [facility] Basophil abs 0.1 0.0 - 0.1 K/cumm [facility] Neutrophil pct 70.9 % [facility] Comment: Interpretive Data Percent cell count reference ranges are not reported, since discordance with absolute values may lead to misinterpretation of CBC data. Current Interpretive Data was last revised on 2017. Imm gran pct 1.5 % [facility] Comment: Interpretive Data Percent cell count reference ranges are not reported, since discordance with absolute values may lead to misinterpretation of CBC data. Current Interpretive Data was last revised on 2017. Lymphocyte pct 15.9 % [facility] Comment: Interpretive Data Percent cell count reference ranges are not reported, since discordance with absolute values may lead to misinterpretation of CBC data. Current Interpretive Data was last revised on 2017. Monocyte pct 10.5 % [facility] Comment: Interpretive Data Percent cell count reference ranges are not reported, since discordance with absolute values may lead to misinterpretation of CBC data. Current Interpretive Data was last revised on 2017. Eosinophil pct 0.7 % [facility] Comment: Interpretive Data Percent cell count reference ranges are not reported, since discordance with absolute values may lead to misinterpretation of CBC data. Current Interpretive Data was last revised on 2017. Basophil pct 0.5 % [facility] Comment: Interpretive Data Percent cell count reference ranges are not reported, since discordance with absolute values may lead to misinterpretation of CBC data. Current Interpretive Data was last revised on 2017. Blood 06/13/2023 1:07 PM [employer] 06/13/2023 1:25 PM [employer] Result [facility] Akash Spears MD LAB BLOOD ORDERABLES Sally l Result Performing Organization Address [facility] Co de Phone Number [facility] [place] [address] * (ABNORMAL) CRP (acute phase) (06/13/2023 1:07 PM [employer]) CRP 155.8(H) <=10.0 mg/L [facility] Blood 06/13/2023 1:07 PM [employer] 06/13/2023 1:25 PM [employer] Result [facility] Akash Spears MD LAB BLOOD ORDERABLES Sally l Result Performing Organization Address [facility] de Phone Number [facility] [place] [address] * (ABNORMAL) Erythrocyte sedimentation rate (06/13/2023 1:07 PM [employer]) Erythrocyte sedimentation rate 92(H) 1 - 15 mm/hr [facility] Blood 06/13/2023 1:07 PM [employer] 06/13/2023 1:25 PM [employer] Result [facility] Akash Spears MD LAB BLOOD ORDERABLES Sally l Result Performing Organization Address [facility] de Phone Number [facility] [place] [address] * Cortisol (06/13/2023 1:07 PM [employer]) Cortisol 15.3 4.8 - 19.5 mcg/dL [facility] Comment: Interpretive Data: Morning hours 6-10 a.m. ??4.8 - 19.5 mcg/dL Afternoon hours 4-8 p.m. ??2.68 - 10.5 mcg/dL This analyte undergoes marked diurnal variation. Current interpretive data was last revised 21. Blood 06/13/2023 1:07 PM [employer] 06/13/2023 1:25 PM [employer] Akash Spears MD LAB BLOOD ORDERABLES Sally l Result Performing Organization Address [facility] de Phone Number [facility] Department [place] [address] * (ABNORMAL) CBC with auto differential (06/13/2023 1:07 PM [employer]) Pathologist [facility] WBC 10.5(H) 3.8 - 9.9 K/cumm [facility] Hgb 10.7(L) 13.0 - 17.5 g/dL [facility] Hct 34.2(L) 38.9 - 50.3 % [facility] Plt 462(H) 150 - 400 K/cumm [facility] MPV 9.2 9.1 - 12.3 fL [facility] RBC 3.78(L) 4.30 - 5.80 M/cumm [facility] MCV 90.5 81.3 - 96.4 fL [facility] MCH 28.3 27.1 - 33.3 pg [facility] MCHC 31.3(L) 32.3 - 35.7 g/dL [facility] RDW CV 13.7 11.1 - 14.9 % [facility] RDW SD 45.7 35.7 - 48.1 fL [facility] NRBC abs 0.00 0.00 - 0.01 K/cumm [facility] Blood 06/13/2023 1:07 PM [employer] 06/13/2023 1:25 PM [employer] Akash Spears MD LAB BLOOD ORDERABLES Sally l Result Performing Organization Address [facility] Co de Phone Number [facility] [place] [address] * (ABNORMAL) Comprehensive metabolic panel (06/13/2023 1:07 PM [employer]) Pathologist [facility] Sodium 139 135 - 145 mmol/L [facility] Potassium, pl 4.1 3.3 - 4.9 mmol/L [facility] Chloride 105 97 - 110 mmol/L [facility] CO2 23 22 - 32 mmol/L [facility] Anion gap 11 2 - 15 mmol/L [facility] BUN 16 6 - 25 mg/dL [facility] Creatinine 0.81 0.80 - 1.30 mg/dL [facility] Glucose 109 70 - 199 mg/dL [facility] Comment: Interpretive Data Fasting glucose >/= [...] interpretive data was last revised 2022. Calcium 9.6 8.5 - 10.3 mg/dL [facility] Bilirubin, total 0.3 0.1 - 1.2 mg/dL [facility] Protein, pl 9.0(H) 6.5 - 8.5 g/dL [facility] Albumin 3.8 3.5 - 5.0 g/dL [facility] Alk phos 118 40 - 130 Units/L [facility] ALT 29 7 - 55 Units/L [facility] AST 23 10 - 50 Units/L [facility] Blood 06/13/2023 1:07 PM [employer] 06/13/2023 1:25 PM [employer] us Akash Spears MD LAB BLOOD ORDERABLES Sally zhang Result [facility] [place] [address] * (ABNORMAL) Protime-INR (06/13/2023 1:07 PM [employer]) Pathologist [facility] PT 14.9(H) 10.3 - 13.7 sec [facility] INR 1.31(H) 0.90 - 1.20 [facility] Comment: Interpretive data Oral anticoagulant therapeutic ranges: Venous thromboembolism prophylaxis or treatment: 2.0-3.0 CARDIOLOGY Standard range: 2.0-3.0 High-intensity range: 2.5-3.5 Refer to indication-specific guidelines for appropriate target ranges for prosthetic heart valve replacement. Current interpretive data was last revised on 2019. Blood 06/13/2023 1:07 PM [employer] 06/13/2023 1:26 PM [employer] Result [facility] Akash Spears MD LAB BLOOD ORDERABLES Sally l Result Performing Organization Address [facility] de Phone Number [facility] [place] [address] * (ABNORMAL) aPTT (06/13/2023 1:07 PM [employer]) Pathologist [facility] aPTT 40(H) 28 - 38 sec [facility] Comment: Interpretive Data Heparin therapeutic range: 66.0 - 100.0 seconds. Range based on correlation with therapeutic heparin activity range of 0.3 - 0.7 Units/mL. Current interpretive data was last revised on 2023. Blood 06/13/2023 1:07 PM [employer] 06/13/2023 1:26 PM [employer] Akash Spears MD LAB BLOOD ORDERABLES Sally l Result Performing Organization Address [facility] de Phone Number [facility] [place] [address] * Troponin I high-sensitivity series (baseline, 2hr, 4hr, 6hr) (06/13/2023 1:07 PM [employer]) Pathologist [facility] Trop I hs 4 <=35 ng/L [facility] Comment: Interpretive Data For further [facility] resources including the diagnostic algorithm and an aid in interpretation, copy and paste this link: [email or web address] Current Interpretive Data last revised 2019. Blood 06/13/2023 1:07 PM [employer] 06/13/2023 1:26 PM [employer] us Akash Spears MD LAB BLOOD ORDERABLES Sally leatha Result [facility] Department [place] [address] * Blood culture Blood Peripheral (06/13/2023 1:07 PM [employer]) Report Final Report: No growth [facility] Blood (Peripheral) 06/13/2023 1:07 PM [employer] 06/13/2023 1:23 PM [employer] Narrative [facility] - 06/17/2023 4:01 PM [employer] WORK[employer] From a different site than #1. Draw Blood cultures before administration of Antibiotics Collection->Peripheral 1. ?Blood cultures are incubated for [...] organism identification may be performed using the [employer] Gram-Positive Blood Culture Assay. This assay detects microbial DNA in positive blood culture broth via hybridization of target DNA to capture oligonucleotides on a microarray. This assay has been cleared by the [place] Food and Drug Administration and its performance characteristics have been verified by the [facility]. 5. ?For questions about this culture, contact the Microbiology Laboratory at [phone]. Interpretive data was last revised on 2019. Akash Spears MD LAB MICROBIOLOGY - GENERA L ORDERABLES Final Result [facility] Department [place] [address] * Blood culture Blood Peripheral (06/13/2023 1:07 PM [employer]) Report Final Report: No growth [facility] Blood (Peripheral) 06/13/2023 1:07 PM [employer] 06/13/2023 1:23 PM [employer] Narrative [facility] - 06/17/2023 4:01 PM [employer] Draw Blood cultures before administration of Antibiotics Collection->Peripheral 1. ?Blood cultures are incubated for [...] organism identification may be performed using the [employer] Gram-Positive Blood Culture Assay. This assay detects microbial DNA in positive blood culture broth via hybridization of target DNA to capture oligonucleotides on a microarray. This assay has been cleared by the [place] Food and Drug Administration and its performance characteristics have been verified by the [facility]. 5. ?For questions about this culture, contact the Microbiology Laboratory at [phone]. Interpretive data was last revised on 2019. us Akash Spears MD LAB MICROBIOLOGY - GENERA L ORDERABLES Final Result [facility] Department [place] [address] documented in this encounter Visit Diagnoses Diagnosis Infrarenal abdominal aortic aneurysm, without rupture (HCC)- Primary Infrarenal abdominal aortic aneurysm, without rupture (HCC) Hypertension, unspecified type Acute midline thoracic back pain Lumbar spine pain Dissection of aorta, unspecified portion of aorta (HCC) Epistaxis HTN (hypertension) Unspecified essential hypertension Chronic back pain Unspecified backache Pseudoaneurysm following procedure (CMS/HCC) (HCC) documented in this encounter Admitting Diagnoses Diagnosis Infrarenal abdominal aortic aneurysm, without rupture (HCC) documented in this encounter Administered Medications Inactive Administered Medications - up to 3 most recent administrations Medication Order MAR Action Action Date Dose Rate Site acetaminophen (TYLENOL) tablet 1,000 mg 1,000 mg, oral, Every 6 hours scheduled, First dose on 06/13/23 at 1815, For 3 days Given 06/16/2023 11:14 AM [employer] 1,000 mg Given 06/16/2023 5:52 AM [employer] 1,000 mg Given 06/16/2023 12:00 AM [employer] 1,000 mg acetaminophen (TYLENOL) tablet 1,000 mg 1,000 mg, oral, Every 6 hours scheduled, First dose on 06/18/23 at 1230 Given 06/25/2023 12:30 PM [employer] 1,000 mg Given 06/25/2023 5:15 AM [employer] 1,000 mg Given 06/24/2023 11:52 PM [employer] 1,000 mg amLODIPine (NORVASC) tablet 10 mg 10 mg, oral, Daily, First dose on Tue06/15/23 at 0900 Given 06/25/2023 8:24 AM [employer] 10 mg Given 06/24/2023 8:10 AM [employer] 10 mg Given 06/23/2023 8:11 AM [employer] 10 mg captopriL (CAPOTEN) tablet 12.5 mg 12.5 mg, oral, 3 times daily, First dose (after last modification) on Catarina 06/16/23 at 1615 Given 06/16/2023 8:18 PM [employer] 12.5 mg Given 06/16/2023 4:53 PM [employer] 12.5 mg captopriL (CAPOTEN) tablet 12.5 mg 12.5 mg, oral, Once, On Tue06/17/23 at 0200, For 1 dose Given 06/17/2023 1:28 AM [employer] 12.5 mg captopriL (CAPOTEN) tablet 25 mg 25 mg, oral, 3 times daily, First dose (after last modification) on Tue06/17/23 at 0900 Given 06/18/2023 8:13 PM [employer] 25 mg Given 06/18/2023 4:02 PM [employer] 25 mg Given 06/18/2023 8:30 AM [employer] 25 mg captopriL (CAPOTEN) tablet 25 mg 25 mg, oral, Once, On Tue06/19/23 at 0145, For 1 dose Given 06/19/2023 1:05 AM [employer] 25 mg captopriL (CAPOTEN) tablet 50 mg 50 mg, oral, 3 times daily, First dose (after last modification) on Tue06/19/23 at 0900, For 11 doses Given 06/22/2023 9:07 PM [employer] 50 mg Given 06/22/2023 4:02 PM [employer] 50 mg Given 06/22/2023 8:31 AM [employer] 50 mg captopriL (CAPOTEN) tablet 6.25 mg 6.25 mg, oral, 3 times daily, First dose on Tue06/16/23 at 1100 Given 06/16/2023 12:55 PM [employer] 6.25 mg Carrier Fluids for Secondary Infusion - 0.9% Sodium Chloride 30 mL, intravenous, As needed, For priming tubing and/or flushing, Starting on Tue06/13/23 at 1818, 0-250ml/hr to flush line after IV infusions when no maintenance IV ordered. Infuse 30mL at the same rate as the secondary infusion. Run as primary IV, not intended for KVO Given 06/17/2023 1:29 AM [employer] 30 mL Given 06/14/2023 9:53 PM [employer] 30 mL carvediloL (COREG) tablet 12.5 mg 12.5 mg, oral, Once, On Tue06/14/23 at 1230, For 1 dose Given 06/14/2023 12:15 PM [employer] 12.5 mg carvediloL (COREG) tablet 25 mg 25 mg, oral, 2 times daily with meals (bkfst, dinner), First dose on Tue06/13/23 at 1800 Given 06/14/2023 7:19 AM [employer] 25 mg Given 06/13/2023 4:53 PM [employer] 25 mg carvediloL (COREG) tablet 37.5 mg 37.5 mg, oral, 2 times daily with meals (bkfst, dinner), First dose (after last modification) on Tue06/14/23 at 1800 Given 06/25/2023 8:24 AM [employer] 37.5 mg Given 06/24/2023 5:48 PM [employer] 37.5 mg Given 06/24/2023 8:10 AM [employer] 37.5 mg cefepime (MAXIPIME) 2,000 mg/20 mL in sterile water (premix) 2,000 mg 2,000 mg, intravenous, at 240 mL/hr, Administer over 5 Minutes, Every 8 hours scheduled, First dose on Tue06/13/23 at 1830, Indications: Bone/Joint InfectionIndications:Bone/Joint Infection New Bag 06/18/2023 1:31 PM [employer] 2,000 mg 240 mL/hr New Bag 06/18/2023 5:12 AM [employer] 2,000 mg 240 mL/hr Rate/Dose Verify 06/18/2023 12:00 AM [employer] 240 mL /hr clevidipine (CLEVIPREX) 50 mg/100 mL (0.5 mg/mL) (premix) 0-32 mg/hr (0-64 mL/hr), 0.5 mg/mL, intravenous, Titrated, Starting on Tue06/13/23 at 1815, Until Tue06/20/23 at 0950, Initial rate: 1 mg/hr, Titrate: Up/Down, Titrate by: 1 mg/hr, Every: 2 minutes, Goal: SBP, SBP Goal: Other (comment) / 120-140, Vial only stable 12 hours after entry. Replace with new vial every 12 hours., Routine Rate/Dose Change 06/19/2023 6:03 AM [employer] 7 mg/hr 14 mL/hr Rate/Dose Verify 06/19/2023 6:00 AM [employer] 10 mg/hr 20 mL/h r Rate/Dose Change 06/19/2023 5:52 AM [employer] 10 mg/hr 20 mL/h r cloNIDine (CATAPRES) tablet 0.1 mg 0.1 mg, oral, 2 times daily, First dose (after last modification) on Tue06/19/23 at 0530, On hold since Tue06/21/2023 at 1617 until manually unheld Given 06/21/2023 8:14 AM [employer] 0.1 mg Given 06/20/2023 8:41 PM [employer] 0.1 mg Given 06/20/2023 8:16 AM [employer] 0.1 mg dexmedeTOMIDine in 0.9% sodium chloride (PRECEDEX) 400 mcg/100 mL (4 mcg/mL) infusion (premix) 0-0.7 mcg/kg/hr ? 101 kg (0-17.675 mL/hr, rounded to 0-17.68 mL/hr), 4 mcg/mL, intravenous, Titrated, Starting on Catarina 06/16/23 at 0345, Until Catarina 06/16/23 at 0524, Titration instructions: Titrate, Initial dose: 0.2 mcg/kg/hr, Titrate: Up/Down, Titrate by: 0.1 mcg/kg/hr, Every: 30 minutes, Goal: RASS, RASS Goal: 0, +1, Routine Rate/Dose Verify 06/16/2023 5:00 AM [employer] 0.4 mcg/kg/hr 10.1 mL/hr Rate/Dose Change 06/16/2023 4:03 AM [employer] 0.4 mcg/kg/hr 10.1 mL/hr Rate/Dose Verify 06/16/2023 4:00 AM [employer] 0.2 mcg/kg/hr 5.05 mL/hr dilTIAZem (CARDIZEM) tablet 30 mg 30 mg, oral, Every 6 hours, First dose on Tue06/17/23 at 1030 Given 06/20/2023 10:00 PM [employer] 30 mg Given 06/20/2023 5:25 PM [employer] 30 mg Given 06/20/2023 10:42 AM [employer] 30 mg docusate sodium (COLACE) capsule 100 mg 100 mg, oral, 2 times daily, First dose on Tue06/13/23 at 2100, Hold for diarrhea., Indications: constipationIndications:constipation Given 06/25/2023 8:24 AM [employer] 100 mg Given 06/23/2023 8:11 AM [employer] 100 mg Given 06/22/2023 9:08 PM [employer] 100 mg enoxaparin (LOVENOX) syringe 40 mg 40 mg, subcutaneous, Daily (for enoxaparin), First dose on Tue06/13/23 at 2100, Indications: Deep Vein Thrombosis PreventionIndications:Deep Vein Thrombosis Prevention Given 06/24/2023 8:57 PM [employer] 40 mg Right Upper Arm Given 06/23/2023 8:53 PM [employer] 40 mg Le ft Lower Abdomen Given 06/22/2023 9:08 PM [employer] 40 mg Le ft Lower Abdomen esmolol in 0.9% sodium chloride (BREVIBLOC) 2,500 mg/250 mL (10 mg/mL) infusion (premix) 0-300 mcg/kg/min ? 97.5 kg (0-175.5 mL/hr), 10 mg/mL, intravenous, Titrated, Starting on Tue06/13/23 at 1448, Until Tue06/14/23 at 1700, Initial rate: 50 mcg/kg/min, Titrate: Up, Down, Titrate UP by: 50 mcg/kg/min, Titrate UP every: 5 minutes, Titrate DOWN by: 25 mcg/kg/min, Titrate DOWN every: 30 minutes, Goal: HR, HR Goal: 60-90 bpm, Routine Rate/Dose Verify 06/14/2023 5:00 PM [employer] 150 mcg/kg/min 87.8 mL/hr Rate/Dose Verify 06/14/2023 4:00 PM [employer] 150 mcg/kg/min 87. 8 mL/hr Rate/Dose Verify 06/14/2023 3:00 PM [employer] 150 mcg/kg/min 87. 8 mL/hr esmolol in 0.9% sodium chloride (BREVIBLOC) 2,500 mg/250 mL (10 mg/mL) infusion (premix) 0-300 mcg/kg/min ? 97.5 kg (0-175.5 mL/hr), 10 mg/mL, intravenous, Titrated, Starting on Tue06/14/23 at 1745, Until Tue06/16/23 at 1020, Initial rate: 50 mcg/kg/min, Titrate: Up, Down, Titrate UP by: 50 mcg/kg/min, Titrate UP every: 5 minutes, Titrate DOWN by: 25 mcg/kg/min, Titrate DOWN every: 30 minutes, Goal: HR, HR Goal: Other (comment) / <70, Routine, On hold since Tue06/15/2023 at 0955 until manually unheld Rate/Dose Verify 06/15/2023 9:00 AM [employer] 300 mcg/kg/min 175.5 mL/hr Rate/Dose Verify 06/15/2023 8:00 AM [employer] 300 mcg/kg/min 175 .5 mL/hr New Bag 06/15/2023 7:33 AM [employer] 300 mcg/kg/min 175.5 mL/ hr gabapentin (NEURONTIN) capsule 300 mg 300 mg, oral, 3 times daily, First dose on Tue06/15/23 at 0900 Given 06/24/2023 8:10 AM [employer] 300 mg Given 06/23/2023 8:53 PM [employer] 300 mg Given 06/23/2023 4:05 PM [employer] 300 mg gadoterate meglumine injection 20 mL 20 mL, intravenous, Once in imaging, contrast, Starting on Tue06/16/23 at 0420, For 1 dose Contrast Given 06/16/2023 4:41 AM [employer] 20 mL hydrALAZINE (APRESOLINE) injection 10 mg 10 mg, intravenous, Administer over 2 Minutes, Once, On Tue06/13/23 at 1650, For 1 dose Given 06/13/2023 4:55 PM [employer] 10 mg hydrALAZINE (APRESOLINE) tablet 100 mg 100 mg, oral, 3 times daily, First dose (after last modification) on Tue06/13/23 at 2100, Indications: hypertension, On hold since Tue06/21/2023 at 1617 until manually unheldIndications:hypertension Given 06/21/2023 8:14 AM [employer] 100 mg Given 06/20/2023 8:45 PM [employer] 100 mg Given 06/20/2023 4:59 PM [employer] 100 mg hydrALAZINE (APRESOLINE) tablet 25 mg 25 mg, oral, 3 times daily, First dose on Tue06/13/23 at 1649, Indications: hypertensionIndications:hypertension Given 06/13/2023 4:53 PM [employer] 25 mg hydrALAZINE (APRESOLINE) tablet 25 mg 25 mg, oral, 3 times daily, First dose (after last modification) on Tue06/22/23 at 2100, Indications: hypertensionIndications:hypertension Given 06/23/2023 8:12 AM [employer] 25 mg Given 06/22/2023 9:07 PM [employer] 25 mg hydrALAZINE (APRESOLINE) tablet 50 mg 50 mg, oral, 3 times daily, First dose (after last modification) on Catarina 06/23/23 at 1600, Indications: hypertensionIndications:hypertension Given 06/25/2023 8:23 AM [employer] 50 mg Given 06/24/2023 8:57 PM [employer] 50 mg Given 06/24/2023 4:09 PM [employer] 50 mg HYDROmorphone (DILAUDID) 0.5 mg/0.5 mL injection - ADS Override Pull Starting on Tue06/22/23 at 1816, For 1 dose, Created by maryam fritzide HYDROmorphone (DILAUDID) injection 0.5 mg 0.5 mg, intravenous, Administer over 2 Minutes, Every 2 hours PRN, breakthrough pain, Starting on Tue06/20/23 at 1000 Given 06/21/2023 6:41 AM [employer] 0.5 mg Given 06/21/2023 12:32 AM [employer] 0.5 mg Given 06/20/2023 10:00 PM [employer] 0.5 mg HYDROmorphone (DILAUDID) injection 0.5 mg 0.5 mg, intravenous, Administer over 2 Minutes, Every 6 hours PRN, breakthrough pain, Starting on Tue06/22/23 at 1821 Given 06/23/2023 3:38 AM [employer] 0.5 mg Given 06/22/2023 6:35 PM [employer] 0.5 mg HYDROmorphone (DILAUDID) injection 1 mg 1 mg, intravenous, Administer over 2 Minutes, Every 3 hours PRN, 1st line for pain, Starting on Tue06/13/23 at 1253 Given 06/13/2023 7:33 PM [employer] 1 mg Given 06/13/2023 4:42 PM [employer] 1 mg Given 06/13/2023 12:56 PM [employer] 1 mg HYDROmorphone (DILAUDID) injection 1 mg 1 mg, intravenous, Administer over 2 Minutes, Once, On Tue06/13/23 at 2200, For 1 dose Given 06/13/2023 9:36 PM [employer] 1 m g HYDROmorphone (DILAUDID) injection 1 mg 1 mg, intravenous, Administer over 2 Minutes, Once, On Tue06/13/23 at 2315, For 1 dose Given 06/13/2023 10:56 PM [employer] 1 mg HYDROmorphone (DILAUDID) injection 1 mg 1 mg, intravenous, Administer over 2 Minutes, Every 2 hours PRN, breakthrough pain, Starting on Tue06/14/23 at 0115 Given 06/20/2023 9:01 AM [employer] 1 mg Given 06/20/2023 6:31 AM [employer] 1 mg Given 06/19/2023 10:22 PM [employer] 1 mg HYDROmorphone (DILAUDID) injection 1.5 mg 1.5 mg, intravenous, Administer over 2 Minutes, Every 3 hours PRN, 1st line for pain, Starting on Tue06/13/23 at 1425 Given 06/13/2023 2:34 PM [employer] 1.5 mg hydrOXYzine (ATARAX) tablet 25 mg 25 mg, oral, Once, On Tue06/14/23 at 2200, For 1 dose Given 06/14/2023 9:21 PM [employer] 25 mg ioversoL (OPTIRAY 350) syringe 100 mL 100 mL, intravenous, Once in imaging, contrast, Starting on Tue06/13/23 at 1336, For 1 dose Contrast Given 06/13/2023 2:35 PM [employer] 90 mL ketorolac (TORADOL) 30 mg/mL (1 mL) injection 15 mg 15 mg, intravenous, Once, On [facility] 06/23/23 at 1100, For 1 dose Given 06/23/2023 10:45 AM [employer] 15 mg labetaloL (NORMODYNE,TRANDATE) injection 20 mg 20 mg, intravenous, at 120 mL/hr, Administer over 2 Minutes, Once, On Tue06/13/23 at 1254, For 1 dose Given 06/13/2023 12:56 PM [employer] 20 mg 120 mL/hr labetaloL (NORMODYNE,TRANDATE) injection 20 mg 20 mg, intravenous, at 120 mL/hr, Administer over 2 Minutes, Every 4 hours PRN, high blood pressure, for SBP >170, Starting on Tue06/13/23 at 1429 Given 06/15/2023 3:31 PM [employer] 20 mg 120 mL/hr Given 06/15/2023 10:20 AM [employer] 20 mg 120 mL/hr Given 06/14/2023 7:44 PM [employer] 20 mg 120 mL/hr labetaloL (NORMODYNE,TRANDATE) injection 20 mg 20 mg, intravenous, at 120 mL/hr, Administer over 2 Minutes, Every 2 hours PRN, high blood pressure, for SBP >170, Starting on Tue06/15/23 at 1600 Given 06/19/2023 2:49 AM [employer] 20 mg 120 mL/hr Given 06/17/2023 10:16 AM [employer] 20 mg 120 mL/hr Given 06/17/2023 1:29 AM [employer] 20 mg 120 mL/hr labetaloL (NORMODYNE,TRANDATE) injection 40 mg 40 mg, intravenous, at 240 mL/hr, Administer over 2 Minutes, Once, On Tue06/19/23 at 0400, For 1 dose Given 06/19/2023 3:34 AM [employer] 40 mg 240 mL/hr labetaloL (NORMODYNE,TRANDATE) injection 40 mg 40 mg, intravenous, at 240 mL/hr, Administer over 2 Minutes, Once, On Tue06/19/23 at 0500, For 1 dose Given 06/19/2023 4:26 AM [employer] 40 mg 240 mL/hr labetaloL (NORMODYNE,TRANDATE) injection 5 mg 5 mg, intravenous, at 30 mL/hr, Administer over 2 Minutes, Every 2 hours PRN, high blood pressure, for SBP >140, Starting on Tue06/22/23 at 1759 Given 06/22/2023 6:11 PM [employer] 5 mg 30 mL/hr Lactated Ringer's (LR) bolus 500 mL 500 mL, intravenous, Once, On Tue06/21/23 at 1215, For 1 dose New Bag 06/21/2023 12:08 PM [employer] 500 mL Lactated Ringer's (LR) infusion 10 mL/hr, intravenous, Continuous, Starting on Tue06/13/23 at 1900 New Bag 06/21/2023 11:31 AM [employer] 10 mL/hr 10 mL/hr Rate/Dose Verify 06/13/2023 9:00 PM [employer] 10 mL/hr 10 mL/h r Rate/Dose Verify 06/13/2023 8:00 PM [employer] 10 mL/hr 10 mL/h r lidocaine (ASPERCREME) 4 % patch 2 patch 2 patch, transdermal, Administer over 12 Hours, Every 24 hours, First dose on Tue06/18/23 at 1230, Apply to affected area: back Medication Applied 06/20/2023 12:44 PM [employer] 2 patches Back Medication Applied 06/19/2023 11:46 AM [employer] 2 patches Other (Comment) Medication Applied 06/18/2023 11:57 AM [employer] 2 patches Other (Comment) lidocaine (ASPERCREME) 4 % patch 3 patch 3 patch, transdermal, Administer over 12 Hours, Every 24 hours, First dose (after last modification) on Tue06/21/23 at 1230, Apply to affected area: back Medication Applied 06/23/2023 12:11 PM [employer] 3 patches Back Medication Applied 06/22/2023 12:27 PM [employer] 3 patches Back Medication Applied 06/21/2023 1:17 PM [employer] 3 patches Back lisinopriL (PRINIVIL,ZESTRIL) tablet 20 mg 20 mg, oral, Daily, First dose on Tue06/23/23 at 0900 Given 06/25/2023 8:24 AM [employer] 20 mg Given 06/24/2023 8:10 AM [employer] 20 mg Given 06/23/2023 8:10 AM [employer] 20 mg LORazepam (ATIVAN) injection 1 mg 1 mg, intravenous, Once, On Tue06/16/23 at 0415, For 1 dose, For IV administration, draw up ordered admin dose/volume, then dilute with equal volume of 0.9% sodium chloride and administer total volume to patient. Do not exceed a rate of 2 mg/minute. Given 06/16/2023 3:38 AM [employer] 1 mg magnesium citrate oral solution 296 mL 296 mL, oral, Once, On Tue06/17/23 at 0745, For 1 dose Given 06/17/2023 10:29 AM [employer] 296 mL magnesium oxide (MAG-OX) tablet 800 mg 800 mg, oral, Once, On Tue06/15/23 at 0800, For 1 dose, 1 tablet = Magnesium oxide 400 mg = 241.3 mg elemental magnesium, Indications: hypomagnesemiaIndications:hypomagnesemia Given 06/15/2023 8:40 AM [employer] 800 mg magnesium sulfate 2 g/50 mL in water (premix) 2 g 2 g, intravenous, Administer over 60 Minutes, Once, On Tue06/14/23 at 2200, For 1 dose New Bag 06/14/2023 9:50 PM [employer] 2 g magnesium sulfate 2 g/50 mL in water (premix) 2 g 2 g, intravenous, Administer over 60 Minutes, Once, On Tue06/17/23 at 0200, For 1 dose New Bag 06/17/2023 1:28 AM [employer] 2 g methocarbamoL (ROBAXIN) tablet 1,000 mg 1,000 mg, oral, Every 8 hours, First dose (after last modification) on Tue06/21/23 at 1615 Given 06/25/2023 8:23 AM [employer] 1,000 mg Given 06/24/2023 11:52 PM [employer] 1,000 mg Given 06/24/2023 4:10 PM [employer] 1,000 mg methocarbamoL (ROBAXIN) tablet 750 mg 750 mg, oral, 4 times daily, First dose on Tue06/14/23 at 1200 Given 06/21/2023 8:15 AM [employer] 750 mg Given 06/20/2023 8:40 PM [employer] 750 mg Given 06/20/2023 5:25 PM [employer] 750 mg niCARdipine in sodium chloride 0.9% (CARDENE) 25,000 mcg/250 mL (100 mcg/mL) infusion (premix) solution 0-2.5 mcg/kg/min ? 97.5 kg (0-146.25 mL/hr), 100 mcg/mL, intravenous, Titrated, Starting on Tue06/13/23 at 1448, Until Tue06/13/23 at 1822, Initial rate: 0.5 mcg/kg/min, Titrate: Up/Down, Titrate by: 0.5 mcg/kg/min, Every: 10 minutes, Goal: SBP, SBP Goal: Other (comment) / 120-140, Maximum 2.5 mcg/kg/min or 15 mg/hr. Contact provider if maximum reached and MAP/BP not at goal for additional instructions., Routine Rate/Dose Change 06/13/2023 4:18 PM [employer] 2.5 mcg/kg/min 146.3 mL/hr Rate/Dose Change 06/13/2023 3:34 PM [employer] 1.5 mcg/kg/min 87. 8 mL/hr Rate/Dose Change 06/13/2023 3:19 PM [employer] 1 mcg/kg/min 58.5 mL/hr ondansetron (ZOFRAN) injection 4 mg 4 mg, intravenous, Administer over 2 Minutes, Every 6 hours PRN, nausea, vomiting, Starting on Tue06/13/23 at 1818, Administer no sooner than 6 hours after last dose. Given 06/15/2023 8:41 AM [employer] 4 mg Given 06/14/2023 2:22 PM [employer] 4 mg Given 06/14/2023 7:56 AM [employer] 4 mg oxyCODONE (ROXICODONE) tablet 10 mg 10 mg, oral, Every 4 hours PRN, 1st line for pain, Starting on Tue06/14/23 at 1031, Indications: PainIndications:Pain Given 06/17/2023 6:39 AM [employer] 10 mg Given 06/17/2023 2:38 AM [employer] 10 mg Given 06/16/2023 10:22 PM [employer] 10 mg oxyCODONE (ROXICODONE) tablet 10 mg 10 mg, oral, Every 4 hours PRN, 1st line for pain, Starting on Tue06/21/23 at 0955, Indications: PainIndications:Pain Given 06/22/2023 6:07 AM [employer] 10 mg Given 06/22/2023 1:22 AM [employer] 10 mg Given 06/21/2023 9:30 PM [employer] 10 mg oxyCODONE (ROXICODONE) tablet 10 mg 10 mg, oral, Once, On Tue06/23/23 at 2015, For 1 dose, Indications: PainIndications:Pain Given 06/23/2023 8:01 PM [employer] 10 mg oxyCODONE (ROXICODONE) tablet 10 mg 10 mg, oral, Every 4 hours PRN, 1st line for pain, Starting on Tue06/23/23 at 1941, Indications: PainIndications:Pain Given 06/24/2023 7:19 AM [employer] 10 mg Given 06/24/2023 3:01 AM [employer] 10 mg Given 06/23/2023 11:31 PM [employer] 10 mg oxyCODONE (ROXICODONE) tablet 10 mg 10 mg, oral, Every 3 hours PRN, 1st line for pain, Starting on Tue06/24/23 at 1100, Indications: PainIndications:Pain Given 06/25/2023 12:19 PM [employer] 10 mg Given 06/25/2023 8:23 AM [employer] 10 mg Given 06/25/2023 5:15 AM [employer] 10 mg oxyCODONE (ROXICODONE) tablet 15 mg 15 mg, oral, Every 4 hours PRN, 1st line for pain, Starting on Tue06/17/23 at 1017, Indications: PainIndications:Pain Given 06/21/2023 6:40 AM [employer] 15 mg Given 06/21/2023 12:36 AM [employer] 15 mg Given 06/20/2023 7:13 PM [employer] 15 mg oxyCODONE (ROXICODONE) tablet 5 mg 5 mg, oral, Every 4 hours PRN, 1st line for pain, Starting on Tue06/13/23 at 1825, Indications: PainIndications:Pain Given 06/14/2023 7:19 AM [employer] 5 mg Given 06/13/2023 6:51 PM [employer] 5 mg oxyCODONE (ROXICODONE) tablet 5 mg 5 mg, oral, Once, On Tue06/13/23 at 2200, For 1 dose, Indications: PainIndications:Pain Given 06/13/2023 9:36 PM [employer] 5 mg oxyCODONE (ROXICODONE) tablet 5 mg 5 mg, oral, Once, On Tue06/24/23 at 0615, For 1 dose, Indications: PainIndications:Pain Given 06/24/2023 5:36 AM [employer] 5 mg oxyCODONE (ROXICODONE) tablet 7.5 mg 7.5 mg, oral, Every 4 hours PRN, 1st line for pain, Starting on Tue06/22/23 at 1025, Indications: PainIndications:Pain Given 06/23/2023 4:03 PM [employer] 7.5 mg Given 06/23/2023 12:22 PM [employer] 7.5 mg Given 06/23/2023 8:12 AM [employer] 7.5 mg polyethylene glycol (MIRALAX) packet 17 g 17 g, oral, 2 times daily, First dose (after last modification) on Tue06/16/23 at 0900, Hold for diarrhea, Indications: constipationIndications:constipation Given 06/25/2023 8:23 AM [employer] 17 g Given 06/22/2023 9:08 PM [employer] 17 g Given 06/22/2023 8:29 AM [employer] 17 g potassium chloride 40 mEq/520 mL in sodium chloride 0.9% (premix) 40 mEq 40 mEq, intravenous, at 130 mL/hr, Administer over 4 Hours, Once, On Catarina 06/16/23 at 0215, For 1 dose, Indications: hypokalemiaIndications:hypokalemia New Bag 06/16/2023 2:00 AM [employer] 40 mEq 130 mL/hr potassium chloride ER (KLOR-CON) extended release tablet 20 mEq 20 mEq, oral, Once, On Catarina 06/16/23 at 2215, For 1 dose, Tablets should not be crushed, chewed, dissolved, or otherwise manipulated. Capsules may be opened and sprinkled on a spoonful of applesauce or pudding, but the contents of the capsule should not be crushed or chewed. Given 06/16/2023 10:22 PM [employer] 20 mEq potassium chloride ER (KLOR-CON) extended release tablet 20 mEq 20 mEq, oral, Once, On Tue06/17/23 at 0200, For 1 dose, Tablets should not be crushed, chewed, dissolved, or otherwise manipulated. Capsules may be opened and sprinkled on a spoonful of applesauce or pudding, but the contents of the capsule should not be crushed or chewed. Given 06/17/2023 1:28 AM [employer] 20 mEq potassium chloride ER (KLOR-CON) extended release tablet 40 mEq 40 mEq, oral, Once, On Tue06/16/23 at 0730, For 1 dose, Tablets should not be crushed, chewed, dissolved, or otherwise manipulated. Capsules may be opened and sprinkled on a spoonful of applesauce or pudding, but the contents of the capsule should not be crushed or chewed. Given 06/16/2023 7:26 AM [employer] 40 mEq potassium chloride ER (KLOR-CON) extended release tablet 40 mEq 40 mEq, oral, Once, On Tue06/16/23 at 1130, For 1 dose, Tablets should not be crushed, chewed, dissolved, or otherwise manipulated. Capsules may be opened and sprinkled on a spoonful of applesauce or pudding, but the contents of the capsule should not be crushed or chewed. Given 06/16/2023 11:14 AM [employer] 40 mEq potassium chloride ER (KLOR-CON) extended release tablet 40 mEq 40 mEq, oral, Once, On Tue06/16/23 at 1230, For 1 dose, Tablets should not be crushed, chewed, dissolved, or otherwise manipulated. Capsules may be opened and sprinkled on a spoonful of applesauce or pudding, but the contents of the capsule should not be crushed or chewed. Given 06/16/2023 12:27 PM [employer] 40 mEq potassium chloride ER (KLOR-CON) extended release tablet 40 mEq 40 mEq, oral, Once, On Tue06/19/23 at 1200, For 1 dose, Tablets should not be crushed, chewed, dissolved, or otherwise manipulated. Capsules may be opened and sprinkled on a spoonful of applesauce or pudding, but the contents of the capsule should not be crushed or chewed. Given 06/19/2023 11:46 AM [employer] 40 mEq pregabalin (LYRICA) capsule 75 mg 75 mg, oral, 2 times daily, First dose on Tue06/24/23 at 1415 Given 06/25/2023 8:24 AM [employer] 75 mg Given 06/24/2023 8:57 PM [employer] 75 mg Given 06/24/2023 2:11 PM [employer] 75 mg prochlorperazine (COMPAZINE) injection 10 mg 10 mg, intravenous, Administer over 2 Minutes, Once, On Tue06/14/23 at 1845, For 1 dose Given 06/14/2023 6:07 PM [employer] 10 mg prochlorperazine (COMPAZINE) injection 5 mg 5 mg, intravenous, Administer over 2 Minutes, Once, On Tue06/14/23 at 0230, For 1 dose Given 06/14/2023 2:00 AM [employer] 5 m g QUEtiapine (SEROquel) tablet 25 mg 25 mg, oral, Nightly, First dose (after last modification) on Tue06/22/23 at 2100 Given 06/22/2023 9:07 PM [employer] 25 mg QUEtiapine (SEROquel) tablet 50 mg 50 mg, oral, Nightly, First dose on Tue06/15/23 at 2100 Given 06/21/2023 9:30 PM [employer] 50 mg Given 06/20/2023 8:40 PM [employer] 50 mg Given 06/19/2023 8:32 PM [employer] 50 mg senna (SENOKOT) tablet 1 tablet 1 tablet, oral, 2 times daily, First dose on Tue06/13/23 at 2100, Hold for diarrhea., Indications: constipationIndications:constipation Given 06/25/2023 8:24 AM [employer] 1 table t Given 06/23/2023 8:10 AM [employer] 1 tablet Given 06/22/2023 9:07 PM [employer] 1 tablet sodium chloride 0.9% solution 3-12 mL/hr, intra-catheter, Continuous, Starting on Tue06/13/23 at 1900, Amount needed for invasive pressure monitoring with 300 mg Hg to maintain patency. Rate/Dose Verify 06/24/2023 8:00 AM [employer] 3 mL/hr 3 mL/hr Rate/Dose Verify 06/22/2023 2:00 PM [employer] 3 mL/hr 3 mL/hr Rate/Dose Verify 06/22/2023 7:00 AM [employer] 3 mL/hr 3 mL/hr spironolactone (ALDACTONE) tablet 25 mg 25 mg, oral, Daily, First dose on Tue06/18/23 at 1145, On hold since Tue06/22/2023 at 0821 until manually unheld Given 06/21/2023 8:15 AM [employer] 25 mg Given 06/20/2023 8:16 AM [employer] 25 mg Given 06/19/2023 8:16 AM [employer] 25 mg tamsulosin (FLOMAX) extended release capsule 0.4 mg 0.4 mg, oral, Daily with dinner, First dose on Tue06/18/23 at 1800, Do not crush, chew, cut, dissolve, open or otherwise manipulate tablet/capsule. Given 06/24/2023 5:48 PM [employer] 0.4 mg Given 06/23/2023 5:54 PM [employer] 0.4 mg Given 06/22/2023 5:00 PM [employer] 0.4 mg traZODone (DESYREL) tablet 50 mg 50 mg, oral, Nightly PRN, sleep, Starting on Tue06/21/23 at 2232 Given 06/24/2023 9:50 PM [employer] 50 mg Given 06/23/2023 8:53 PM [employer] 50 mg Given 06/22/2023 9:07 PM [employer] 50 mg vancomycin 1500 mg/515 mL in sodium chloride 0.9% (premix) 1,500 mg 1,500 mg (rounded from 1,462.5 mg = 15 mg/kg ? 97.5 kg), intravenous, Administer over 90 Minutes, Every 8 hours, First dose (after last modification) on Tue06/13/23 at 1830, Indications: Bone/Joint InfectionIndications:Bone/Joint Infection New Bag 06/18/2023 10:05 AM [employer] 1,500 mg New Bag 06/18/2023 1:57 AM [employer] 1,500 mg New Bag 06/17/2023 6:14 PM [employer] 1,500 mg documented in this encounter Discontinued Medications Medication Sig Discontinue Reason Start Date End Da te carvediloL (COREG) 12.5 mg tablet Take 3 tablets (37.5 mg total) by mouth 2 (two) times a day with meals 06/25/2023 06/25/2023 methocarbamoL (ROBAXIN) 500 mg tablet Take 2 tablets (1,000 mg total) by mouth 3 (three) times a day as needed for muscle spasms for up to 90 doses 06/25/2023 06/25/2023 gabapentin (NEURONTIN) 300 mg capsule Take 1 capsule (300 mg total) by mouth 3 (three) times a day 05/16/2023 06/25/2023 oxyCODONE (ROXICODONE) 10 mg tabletIndications:Pain Take 1 tablet (10 mg total) by mouth every 4 (four) hours as needed for pain Stop Taking at Discharge 05/16/2023 06/25/2023 lidocaine (ASPERCREME) 4 % adhesive patch,medicated Place 2 patches on the skin daily Stop Taking at Discharge 05/16/2023 06/25/2023 methocarbamoL (ROBAXIN) 750 mg tablet Take 1 tablet (750 mg total) by mouth 3 (three) times a day Stop Taking at Discharge 05/16/2023 06/25/2023 polyethylene glycol (MIRALAX) 17 gram/dose bulk powderIndications:cons tipation Take 17 g by mouth daily as needed (constipation) Stop Taking at Discharge 05/16/2023 06/25/2023 tamsulosin (FLOMAX) 0.4 mg extended release capsule Take 1 capsule (0.4 mg total) by mouth daily Stop Taking at Discharge 05/17/2023 06/25/2023 carvediloL (COREG) 25 mg tablet Take 1 tablet (25 mg total) by mouth 2 (two) times a day with meals Stop Taking at Discharge 06/11/2023 06/25/2023 amLODIPine (NORVASC) 5 mg tablet Take 1 tablet (5 mg total) by mouth daily Stop Taking at Discharge 06/12/2023 06/25/2023 hydrALAZINE (APRESOLINE) 25 mg tabletIndications:hype rtension Take 1 tablet (25 mg total) by mouth 3 (three) times a day Stop Taking at Discharge 06/11/2023 06/25/2023 documented as of this encounter Active and Recently Administered Medications Times are shown in [employer]. Scheduled Medication Order 06/23/2023 06/24/2023 06/25/2023 acetaminophen (TYLENOL) tablet 1,000 mg 1,000 mg, oral, Every 6 hours scheduled, First dose on Tue06/18/23 at 1230 0025 (Given - Provider: Colt Rene RN)0513 (Given - Provider: Colt Rene RN)1211 (Given - Provider: Cayla Houser RN)1754 (Given - Provider: Cayla Houser RN)2331 (Given - Provider: Dc An, BRIA) 0533 (Given - Provider: Dc An, BRIA)1131 (Given - Provider: Roge Tolbert, BRIA)1748 (Given - Provider: Otoniel Arrington RN)2352 (Given - Provider: Aleisha Morejon, BRIA) 0515 (Given - Provider: Aleisha Morejon, BRIA)1230 (Given - Provider: Dc Edwards, BRIA) amLODIPine (NORVASC) tablet 10 mg 10 mg, oral, Daily, First dose on Tue06/15/23 at 0900 0811 (Given - Provider: Cayla Houser RN) 0810 (Given - Provider: Roge Tolbert, BRIA) 0824 (Given - Provider: Dc Edwards, BRIA) carvediloL (COREG) tablet 37.5 mg 37.5 mg, oral, 2 times daily with meals (bkfst, dinner), First dose (after last modification) on Tue06/14/23 at 1800 0811 (Given - Provider: Cayla Houser RN)1754 (Given - Provider: Cayla Houser RN) 0810 (Given - Provider: Roge Tolbert, BRIA)1748 (Given - Provider: Otoniel Arrington RN) 0824 (Given - Provider: Dc Edwards, BRIA) docusate sodium (COLACE) capsule 100 mg(Linked Group 1) 100 mg, oral, 2 times daily, First dose on Tue06/13/23 at 2100, Hold for diarrhea., Indications: constipation 810 (Given - Provider: Cayla Houser RN)2053 (Not Given - Provider: Dc An RN - Reason: Patient/family refused) 810 (Not Given - Provider: Roge Tolbert, BRIA - Reason: Patient/family refused)2253 (Not Given - Provider: Aleisha Morejon RN - Reason: Patient/family refused) 823 (Given - Provider: Dc Edwards, BRIA) enoxaparin (LOVENOX) syringe 40 mg 40 mg, subcutaneous, Daily (for enoxaparin), First dose on Tue06/13/23 at 2100, Indications: Deep Vein Thrombosis Prevention 2052 (Given - Provider: Dc An, BRIA) 2056 (Given - Provider: Aleisha Morejon RN - Comment: pt refusing abdominal injection, states has been getting lovenox injections in his arm throughout the hospital course and has not once taken in the abdomen) gabapentin (NEURONTIN) capsule 300 mg (CANCELED) 300 mg, oral, 3 times daily, First dose on Tue06/15/23 at 0900 0810 (Given - Provider: Cayla Houser RN)1605 (Given - Provider: Cayla Houser RN)2052 (Given - Provider: Dc An, BRIA) 0810 (Given - Provider: Roge Tolbert, BRIA) hydrALAZINE (APRESOLINE) tablet 25 mg (CANCELED) 25 mg, oral, 3 times daily, First dose (after last modification) on Tue06/22/23 at 2100, Indications: hypertension 0812 (Given - Provider: Cayla Houser RN) hydrALAZINE (APRESOLINE) tablet 50 mg 50 mg, oral, 3 times daily, First dose (after last modification) on Tue06/23/23 at 1600, Indications: hypertension 1605 (Given - Provider: Cayla Houser, BRIA)2053 (Given - Provider: Dc An, RN) 0810 (Given - Provider: oRge Tolbert, BRIA)1609 (Given - Provider: Angelica Costa, RN)205 (Given - Provider: Aleisha Morejon, BRIA) 0823 (Given - Provider: Dc Edwards, BRIA) ketorolac (TORADOL) 30 mg/mL (1 mL) injection 15 mg (COMPLETED) 15 mg, intravenous, Once, On Tue06/23/23 at 1100, For 1 dose 1045 (Given - Provider: Cayla Houser RN) lidocaine (ASPERCREME) 4 % patch 3 patch 3 patch, transdermal, Administer over 12 Hours, Every 24 hours, First dose (after last modification) on Tue06/21/23 at 1230, Apply to affected area: back 0631 (Medication Removed - Provider: Priscilla Forbes RN)1211 (Medication Applied - Provider: Cayla Houser RN) 0304 (Medication Removed - Provider: Dc An, BRIA)1132 (Not Given - Provider: Roge Tolbert, BRIA - Reason: Patient/family refused) 1307 (Not Given - Provider: Dc Edwards, BRIA - Reason: Order parameters not met) lisinopriL (PRINIVIL,ZESTRIL) tablet 20 mg 20 mg, oral, Daily, First dose on Tue06/23/23 at 0900 0810 (Given - Provider: Cayla Houser RN) 0810 (Given - Provider: Roge Tolbert, BRIA) 0824 (Given - Provider: cD Edwards, BRIA) methocarbamoL (ROBAXIN) tablet 1,000 mg 1,000 mg, oral, Every 8 hours, First dose (after last modification) on Tue06/21/23 at 1615 0025 (Given - Provider: Colt Reen RN)0812 (Given - Provider: Cayla Houser RN)1605 (Given - Provider: Cayla Houser RN)2331 (Given - Provider: Dc An, BRIA) 0810 (Given - Provider: Roge Tolbert RN)1610 (Given - Provider: Angelica Costa, RN)2352 (Given - Provider: Aleisha Morejon, BRIA) 0823 (Given - Provider: Dc Edwards, BRIA) oxyCODONE (ROXICODONE) tablet 10 mg (COMPLETED) 10 mg, oral, Once, On Catarina 06/23/23 at 2015, For 1 dose, Indications: Pain 2001 (Given - Provider: Dc An, BRIA) oxyCODONE (ROXICODONE) tablet 5 mg (COMPLETED) 5 mg, oral, Once, On Tue06/24/23 at 0615, For 1 dose, Indications: Pain 0536 (Given - Provider: Dc An RN) polyethylene glycol (MIRALAX) packet 17 g 17 g, oral, 2 times daily, First dose (after last modification) on Tue06/16/23 at 0900, Hold for diarrhea, Indications: constipation 0945 (Not Given - Provider: Cayla Houser RN - Reason: Patient/family refused)2053 (Not Given - Provider: Dc An RN - Reason: Patient/family refused) 0811 (Not Given - Provider: Roge Tolbert RN - Reason: Patient/family refused)2254 (Not Given - Provider: Aleisha Morejon RN - Reason: Patient/family refused) 0823 (Given - Provider: Dc Edwards, BRIA) pregabalin (LYRICA) capsule 75 mg 75 mg, oral, 2 times daily, First dose on Tue06/24/23 at 1415 1411 (Given - Provider: Dc Edwards RN)7 (Given - Provider: Aleisha Morejon, BRIA) 0824 (Given - Provider: Dc Edwards, BRIA) senna (SENOKOT) tablet 1 tablet(Linked Group 2) 1 tablet, oral, 2 times daily, First dose on Tue06/13/23 at 2100, Hold for diarrhea., Indications: constipation 0810 (Given - Provider: Cayla Houser RN)2053 (Not Given - Provider: Dc An RN - Reason: Patient/family refused) 0811 (Not Given - Provider: Roge Tolbert RN - Reason: Patient/family refused)2254 (Not Given - Provider: Aleisha Morejon RN - Reason: Patient/family refused) 0824 (Given - Provider: Dc Edwards, RN) tamsulosin (FLOMAX) extended release capsule 0.4 mg 0.4 mg, oral, Daily with dinner, First dose on Tue06/18/23 at 1800, Do not crush, chew, cut, dissolve, open or otherwise manipulate tablet/capsule. 1754 (Given - Provider: Cayla Houser, BRIA) 1748 (Given - Provider: Otoniel Arrington, BRIA) Continuous Medication Order 06/23/2023 06/24/2023 06/25/2023 sodium chloride 0.9% solution (CANCELED) 3-12 mL/hr, intra-catheter, Continuous, Starting on Tue06/13/23 at 1900, Amount needed for invasive pressure monitoring with 300 mg Hg to maintain patency. 0800 (Rate/Dose Verify - Provider: Roge Tolbert RN)1333 (Stopped - Provider: Dc Edwards, RN) PRN Medication Order 06/23/2023 06/24/2023 06/25/2023 Carrier Fluids for Secondary Infusion - 0.9% Sodium Chloride 30 mL, intravenous, As needed, For priming tubing and/or flushing, Starting on Tue06/13/23 at 1818, 0-250ml/hr to flush line after IV infusions when no maintenance IV ordered. Infuse 30mL at the same rate as the secondary infusion. Run as primary IV, not intended for KVO HYDROmorphone (DILAUDID) injection 0.5 mg (CANCELED) 0.5 mg, intravenous, Administer over 2 Minutes, Every 6 hours PRN, breakthrough pain, Starting on Tue06/22/23 at 1821 0338 (Given - Provider: Santino Calvin RN) labetaloL (NORMODYNE,TRANDATE) injection 5 mg 5 mg, intravenous, at 30 mL/hr, Administer over 2 Minutes, Every 2 hours PRN, high blood pressure, for SBP >140, Starting on Tue06/22/23 at 1759 ondansetron (ZOFRAN) injection 4 mg 4 mg, intravenous, Administer over 2 Minutes, Every 6 hours PRN, nausea, vomiting, Starting on Tue06/13/23 at 1818, Administer no sooner than 6 hours after last dose. oxyCODONE (ROXICODONE) tablet 10 mg (CANCELED) 10 mg, oral, Every 4 hours PRN, 1st line for pain, Starting on Catarina 06/23/23 at 1941, Indications: Pain 2001 (Given - Provider: Dc An, BRIA)2331 (Given - Provider: Dc An RN) 0301 (Given - Provider: Dc An, RN)0719 (Given - Provider: Roge Tolbert, BRIA) oxyCODONE (ROXICODONE) tablet 10 mg 10 mg, oral, Every 3 hours PRN, 1st line for pain, Starting on Tue06/24/23 at 1100, Indications: Pain 1053 (Given - Provider: Roge Tolbert, BRIA)1411 (Given - Provider: Dc Edwards RN)1748 (Given - Provider: Otoniel Arrington RN)2150 (Given - Provider: Aleisha Morejon, BRIA) 0515 (Given - Provider: Aleisha Morejon RN)0823 (Given - Provider: Dc Edwards, BRIA)1219 (Given - Provider: Dc Edwards, BRIA) oxyCODONE (ROXICODONE) tablet 7.5 mg (CANCELED) 7.5 mg, oral, Every 4 hours PRN, 1st line for pain, Starting on Tue06/22/23 at 1025, Indications: Pain 0239 (Given - Provider: Priscilla Forbes RN)0812 (Given - Provider: Cayla Houser, BRIA)1222 (Given - Provider: Cayla Houser, BRIA)1603 (Given - Provider: Cayla Houser, BRIA) traZODone (DESYREL) tablet 50 mg 50 mg, oral, Nightly PRN, sleep, Starting on Tue06/21/23 at 2232 2053 (Given - Provider: Dc An RN) 2150 (Given - Provider: Aleisha Morejon RN) Linked Groups Order Group 1: docusate sodium (COLACE) capsule 100 mgJump to med 100 mg, oral, 2 times daily, First dose on Tue06/13/23 at 2100, Hold for diarrhea., Indications: constipation Or docusate (COLACE) 10 mg/mL oral liquid 100 mg (CANCELED) 100 mg, feeding tube, 2 times daily, First dose on Tue06/13/23 at 2100, Hold for diarrhea., Indications: constipation Group 2: senna (SENOKOT) tablet 1 tabletJump to med 1 tablet, oral, 2 times daily, First dose on Tue06/13/23 at 2100, Hold for diarrhea., Indications: constipation Or senna 1.76 mg/mL syrup 8.8 mg (CANCELED) 8.8 mg, feeding tube, 2 times daily, First dose on Tue06/13/23 at 2100, Hold for diarrhea., Indications: constipation documented in this encounter Orders Medications Ordered That Gerardo ht Not Have Been Administered Count Last Ordered Date First Ordered Date gabapentin (NEURONTIN) capsule 400 mg 1 HYDROmorphone (DILAUDID) injection 0.5 mg 3 06/22/2023 06/21/2023 labetaloL (NORMODYNE,TRANDAT E) injection 5 mg 1 06/21/2023 cloNIDine (CATAPRES) tablet 0.1 mg 1 2023 potassium chloride ER (KLOR- CON) extended release tablet 40 mEq 1 06/17/2023 bisacodyL (DULCOLAX) suppository 10 mg 1 HYDROmorphone (DILAUDID) injection 1 mg 1 0 06/14/2023 docusate (COLACE) 10 mg/mL o ral liquid 100 mg 1 06/13/2023 polyethylene glycol (MIRALAX) packet 17 g 1 06/13/2023 senna 1.76 mg/mL syrup 8.8 mg 1 06/13/2023 vancomycin 1500 mg/515 mL in sodium chloride 0.9% (premix) 1,500 mg 1 06/13/2023 EKG Orders Without Results Count Last Ordered D ate First Ordered Date ECG 12-LEAD 4 06/20/2023 Diet Count Last Ordered Date First Orde red Date ADULT DISCHARGE DIET 1 06/25/2023 Nursing Count Last Ordered Date First Orde red Date DISCHARGE ACTIVITY 1 06/25/2023 DISCHARGE CALL PROVIDER 6 06/25/2023 DISCHARGE INSTRUCTIONS 1 06/25/2023 DISCONTINUE VASCULAR ACCESS (SPECIFY) 2 06/14/2023 CONTINUOUS PULSE OXIMETRY 1 06/13/[address] PL[address] SEQUENTIAL COMPRESSION DEVICE 1 06/13 Consult Count Last Ordered Date First Orde red Date IP CONSULT TO SOCIAL WORK 1 06/20/2023 CONSULT TO GENERAL INFECTIOUS DISEASE 1 IP CONSULT TO CARDIAC SURGERY 1 06/14/2023 IP CONSULT TO VASCULAR SURGERY 1 06/13/2023 Isolation Count Last Ordered Date First Orde red Date INITIATE DROPLET ISOLATION 1 06/13/2023 Admission Count Last Ordered Date First Orde red Date ADMIT TO INPATIENT 1 06/13/2023 Transfer Count Last Ordered Date First Orde red Date TRANSFER PATIENT TO NEW UNIT 1 06/23/2023 Discharge Count Last Ordered Date First Orde red Date DISCHARGE PATIENT 1 06/25/2023 ADT Patient Update Count Last Ordered Date Firs t Ordered Date PROVIDER TREATMENT TEAM 1 06/13/2023 documented in this encounter Additional Health Concerns Infection Onset Date Last Indicated Resolved Time COVID: Suspected 06/13/2023 06/13/2023 06/13/2023 3:42 PM [employer] documented as of this encounter Care Teams Purchasing Officer Relationship Specialty Start Date End Date Carl Strickland MD [address] [facility] [address] [place] [address] PCP - General Internal Medicine 06/06/23 Faustino Herrera MD [address] [facility] [place] [id number] [place] [address] Surgeon Vascular Surgery 05/16/23 documented as of this encounter
--- OUTSIDE RECORDS SUMMARY | 2024-05-30 05:37 | XMS_ITS | Encounter Summary ---
Author Organization [facility] Healthcare Address [address] [place] [address] Care Team Providers Care Boiler Operator Name Role Phone Leo Manzano MD Unavailable [phone] Carl Strickland MD Primary Care Provider Reason for Visit * Auth/Cert (Routine) Specialty Diagnoses / Procedures Referred By Contac t Referred To Contact Diagnoses Ureteral stone Left flank pain Procedures N/A Referral ID Status Reason Start Date Expiration Date Visits Re quested Visits Authorized [id number] 1 1 Encounter Details Date Type Department Care Team (Late st Contact Info) Description 07/04/2023 7:08 PM COMPUTING SERVICES DIRECTOR Anesthesia Event [facility] Operating Room [address] [place] [address] Artem Zepeda MD [address] [facility] [place] [id number] [place] [address] Anesthesia Record Procedure Summary Procedure Name Responsible Anesthesiologist Anesthesia Start Time Anesthesia Stop Time CYSTOSCOPY (Urethra) Artem Zepeda MD 07/04/23 1908 07/04/232015 Events Date Time Event Comment 07/04/2023 1840 In Preop 1908 An Start 1910 In Room 1910 An Start Data 1914 An Induction The patient was reevaluated immediately before moderate or deep sedation use and before anesthesia induction. 1918 An Intubation 192 Anesthesia Ready 1924 Proc Start 1999 Proc Fin 2006 An Extubation 2007 an stop data 2009 Out of Room 2015 Handoff to RN I completed my handoff [...] Patient disposition at the time of handoff: No value filed. 2015 Handoff to RN I completed my handoff [...] Patient disposition at the time of handoff: No value filed. 2015 An Stop 2021 2031 Release from care Meds Name Total midazolam PF 2 mg lidocaine (cardiac) syringe 2 % 100 mg propofol 200 mg fentaNYL 100 mcg succinylcholine 100 mg rocuronium 10 mg phenylephrine 100 mcg/mL 500 mcg ondansetron PF (ZOFRAN) 2 mg/mL injectio n 4 mg ceFAZolin 2,000 mg ketorolac 15 mg sodium chloride 0.9% infusion 600 mL * Agents Name O2% N2O O2 N2O Air Sevoflurane Inspired Sevoflurane * Blood No blood administrations on file. Lines, Drains, and Airways Type Details Placement Removal RETIRED Surgical Site 06/05/23; 1207; Le ft; Groin; punctured wound; 09/08/23; 1055 06/05/23 1207 by Tim Napoles RN 09/08/23 1055 by Dayami Olivarez RN RETIRED Wound 06/07/23; 1430; No; Puncture; Lower, Mid-line; Spine; Pt had lumbar drain; 09/08/23; 105606/07/23 1430 by Jessica Gambino, BRIA 09/08/23 1057 by Dayami Olivarez V., BRIA RETIRED Surgical Site 06/13/23; 2000; Ye s; Anterior, Left, Proximal; Thigh; 09/08/23; 1057 06/13/231999 by Dalton Rubio RN 09/08/23 105 by Dayami Olivarez RN Peripheral IV Placement Date: 07/04/23; Placement Time: 1216; Catheter Size: 20 G; Orientation: Right; Location: Antecubital; Site Prep: Chlorhexidine; Technique: Anatomical landmarks; Inserted by: Sally FRASER; Insertion Attempts: 1; Patient Tolerance: Tolerated well; Removal Date: 07/08/23; Removal Time: 1399; Removal Reason: Discharge 07/04/23 1217 by Sally Galvez RN 07/08/23 1400 by Mariposa Harris RN ETT Placement Date: 07/04/23; Placement Time: 1925 (created via procedure documentation); Mask Ventilation: 0; Technique: Video laryngoscopy; Type: ETT - single; Single Lumen Tube Size: 7.5 mm; Cuffed: Yes; Laryngoscope: Casey; Blade Size: 3; Location: Oral; Insertion Attempts: 1; Placement Verification: Auscultation, Capnometry; Removal Date: 07/04/23; Removal Time: 200507/04/231925 by Christoph Singh CRNA 07/04/232005 by Christoph Singh CRNA RETIRED Surgical Site 07/04/23; 193; Pe nis; 09/08/23; 1055 07/04/231929 by Essie Glass RN 09/08/231054 by Dayami Olivarez RN documented in this encounter Social History Tobacco Use Types Packs/Day Years Used Date Smoking Tobacco: Never Smokeless Tobacco: Never Alcohol Use Standard Drinks/Week Comments Not Currently 0 (1 standard drink = 0.6 oz pur e alcohol) [facility] Utilities Answer Date Recorded In the past 12 months has [employer], gas, oil, or water [employer] threatened to shut off services in your [...] often do you attend chur ch or episcopalian services? More than 4 times per year [...] on file Legal Sex Male 3:42 AM COMPUTING SERVICES DIRECTOR Gender Identity Not on file Sexual Orientation Straight 06/12/2023 11 :43 PM COMPUTING SERVICES DIRECTOR documented as of this encounter OR Notes * Anesthesia Postprocedure Evaluation - Artem Zepeda MD - 07/04/2023 8:31 PM CST Patient: Eriberto Chau Procedure Summary Date: 07/04/23 Room / Location: [facility] OR POD 1 ROOM 325 / [facility] OR POD 1 Anesthesia Start: 1907 Anesthesia Stop: 2015 Procedures: CYSTOSCOPY (Urethra) URETEROSCOPY (Left: Perineum) PLACEMENT STENT - URETERAL (Left: Ureter) EXTRACTION STONE (Left: Urethra) Diagnosis: Ureteral stone (Ureteral stone [N20.1]) Surgeons: Marcus Gamboa MD Responsible Provider: Artem Zepeda MD Anesthesia Type: general ASA Status: 3 Anesthesia Type: general Last vitals BP 118/71 Pulse 80 Temp 37 ??C (98.6 ??F) Resp 19 SpO2 100% Anesthesia Post Evaluation Patient location during evaluation: PACU Patient participation: complete - patient participated Level of consciousness: fully awake and arouses 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 UTING SERVICES DIRECTOR * Anesthesia Preprocedure Evaluation - Artem Zepeda MD - 07/04/2023 8:22 PM CST Images from the original note were not included. Anesthesia Evaluation Eriberto Chau is a 33 y.o. male Procedure(s): CYSTOSCOPY URETEROSCOPY PLACEMENT STENT - URETERAL EXTRACTION STONE Pre-Op Diagnosis Codes: * Ureteral stone [N20.1] Patient Active Problem List Diagnosis Date Noted Ureteral stone 07/04/2023 Left flank pain 07/04/2023 Chronic back pain 06/24/2023 Pseudoaneurysm following procedure ([facility]) ([facility]) 06/24/2023 Infrarenal abdominal aortic aneurysm, without rupture ([facility]) 06/13/2023 Polysubstance abuse ([facility]) ([facility]) 06/10/2023 Moderate malnutrition ([facility]) ([facility]) 06/09/2023 Dissection of abdominal aorta ([facility]) ([facility]) 06/03/2023 Urinary retention 05/16/2023 Epistaxis 05/13/2023 Pneumonia 05/13/2023 HTN (hypertension) 05/13/2023 Dissection of thoracoabdominal aorta ([facility]) ([facility]) 05/02/2023 Dissection of aorta, unspecified portion of aorta ([facility]) 05/01/2023 Past Medical History: Diagnosis Date Hypertension Kidney stones Past Surgical History: Procedure Laterality Date ABDOMINAL AORTIC ANEURYSM REPAIR Allergies Allergen Reactions Lisinopril Angioedema Amoxicillin Hives Taking? Last Dose Start Date End Date Provider acetaminophen 500 mg capsule Past Week 05/16/23 -- Meron Parekh NP Take 2 capsules (1,000 mg total) by mouth every 6 (six) hours as needed for pain albuterol HFA (PROVENTIL HFA,VENTOLIN HFA,PROAIR HFA) 90 mcg/actuation inhaler Past Month 05/16/23 -- Meron Parekh NP Inhale 2 puffs every 4 (four) hours as needed for wheezing amLODIPine (NORVASC) 10 mg tablet 07/04/2023 06/26/23 06/25/24 Cristobal Chopra MD Take 1 tablet (10 mg total) by mouth daily aspirin 81 mg chewable tablet 07/04/2023 05/17/23 05/16/24 Meron Parekh NP Take 1 tablet (81 mg total) by mouth daily carvediloL (COREG) 12.5 mg tablet 07/04/2023 06/25/23 06/24/24 Cristobal Chopra MD Take 2 tablets (25 mg total) by mouth 2 (two) times a day with meals gabapentin (NEURONTIN) 300 mg capsule 07/04/2023 06/25/23 08/24/23 Cristobal Chopra MD Take 1 capsule (300 mg total) by mouth 3 (three) times a day hydrALAZINE (APRESOLINE) 50 mg tablet 07/04/2023 06/25/23 06/24/24 Cristobal Chopra MD Take 1 tablet (50 mg total) by mouth 3 (three) times a day lidocaine (ASPERCREME) 4 % adhesive patch,medicated Past Week 06/25/23 -- Cristobal Chopra MD Place 3 patches on the skin daily methocarbamoL (ROBAXIN) 500 mg tablet 07/04/2023 06/25/23 -- Cristobal Chopra MD Take 1.5 tablets (750 mg total) by mouth 3 (three) times a day as needed for muscle spasms for up to 90 doses ondansetron ODT (ZOFRAN-ODT) 4 mg disintegrating tablet 07/04/2023 05/16/23 -- Meron Parekh NP Take 1 tablet (4 mg total) by mouth every 8 (eight) hours as needed for nausea or vomiting QUEtiapine (SEROquel) 50 mg tablet () -- 05/16/23 06/15/23 Meron Parekh NP Take 1 tablet (50 mg total) by mouth nightly senna-docusate (PERICOLACE) 8.6-50 mg 07/04/2023 05/16/23 -- Meron Parekh NP Take 2 tablets by mouth 2 (two) times a day To prevent constipation tamsulosin (FLOMAX) 0.4 mg extended release capsule 07/04/2023 06/25/23 -- Cristobal Chopra MD Take 1 capsule (0.4 mg total) by mouth daily with dinner Current Facility-Administered Medications: [MAR Hold] HYDROmorphone (DILAUDID) injection 1 mg, 1 mg, intravenous, Q2H PRN, 1 mg at 07/04/23 1532 [MAR Hold] ketorolac (TORADOL) 15 mg/mL injection 15 mg, 15 mg, intravenous, Once Lactated Ringer's (LR) infusion, 50 mL/hr, intravenous, Continuous sodium chloride 0.9% infusion, 30 mL/hr, intravenous, Continuous, Last Rate: 30 mL/hr at 07/04/23 1908, Restarted at 07/04/232000 Social History Tobacco Use Smoking Status Never Smokeless Tobacco Never Alcohol Use: Not At Risk (07/04/2023) AUDIT-C Frequency of Alcohol Consumption: Never Average Number of Drinks: Patient does not drink Frequency of Binge Drinking: Never Substance and Sexual Activity Drug Use Not Currently History reviewed. No pertinent family history. Vitals: 07/04/23 1846 07/04/23201407/04/232019 BP: 141/88 123/76 118/71 Pulse: 77 84 80 Resp: 16 Temp: 36.4 ??C (97.5 ??F) 37 ??C (98.6 ??F) 37 ??C (98.6 ??F) SpO2: 99% 100% 100% PT: 06/13/2023: 14.9 sec (H) INR: 06/13/2023: 1.31 (H) APTT: 06/13/2023: 40 sec (H) Hgb A1C: No results found for requested labs within last 30 days. CBC RBC: 07/04/2023: 3.52 M/cumm (L) RDW: No results found for requested labs within last 30 days. MCHC: 07/04/2023: 31.2 g/dL (L) MCH: 07/04/2023: 27.6 pg MCV: 07/04/2023: 88.4 fL Hct: 07/04/2023: 31.1 % (L) Hgb: 07/04/2023: 9.7 g/dL (L) WBC: 07/04/2023: 10.9 K/cumm (H) MPV: 07/04/2023: 9.2 fL Platelets: 07/04/2023: 437 K/cumm (H) RDW CV: 07/04/2023: 13.7 % RDW Sd: 07/04/2023: 44.0 fL BMP Glucose: 07/04/2023: 98 mg/dL Calcium: 07/04/2023: 10.1 mg/dL Sodium: 07/04/2023: 137 mmol/L Potassium: 07/04/2023: 4.2 mmol/L CO2: 07/04/2023: 23 mmol/L Chloride: 07/04/2023: 101 mmol/L BUN: 07/04/2023: 18 mg/dL Creatinine: 07/04/2023: 1.33 mg/dL (H) STOP-Bang Total Score: 1 DOS Physical Exam Medical history, medications, and allergies reviewed. Attestation: True emergency - No H&P 07/04/2023. Airway Exam: Mallampati: not evaluated Cervical ROM: FROM TM distance: normal Patient presents with ingram. Cardiovascular Exam: Rate: regular Rhythm: regular Current state: Patient's current state is cooperative. Anesthesia Plan ASA 3 My patient is approved for the Anesthesia Controlled Medication protocol when under care of a TIP MENDER Planned anesthesia: General Team communication plan: oral ET tube Induction: Induction: intravenous. Postoperative Plan: Postoperative administration opioids intended. Postoperative mechanical ventilation intended. Patient's planned disposition post procedure is Floor. Informed Consent: Discussed plan with TIP MENDER. Anesthesia plan and risks discussed with patient. Consent and Attending signature: I and/or my designee have discussed the anesthesia plan, benefits, possible alternatives, parental presence at time of induction (if indicated), and clinically relevant risks that may include dental injury, unintentional awareness, and/or other complications. The patient and/or parent/legal guardian understand, and agree to proceed. All questions answered. UTING SERVICES DIRECTOR * Anesthesia Procedure Notes - Christoph Singh CRNA - 07/04/2023 7:25 PM CSTAssociated Order(s): Airway Airway Patient location: OR Urgency: elective Indications for airway management: anesthesia Difficult airway: no Staff: Placed by: TIP MENDER: Christoph Singh CRNA Emergent airway documentation: Risks and benefits discussed: yes Consent obtained: yes Consent given by: patient Airway prep: Preoxygenated: yes Patient position: sniffing Mask difficulty assessment: 0 - not attempted Spontaneous ventilation during airway: absent Sedation level during airway: GA Final airway details: Final airway type: endotracheal airway Tube type: ETT ETT size: 7.5 mm Cuffed: yes Technique used for successful ETT placement: video laryngoscopy Devices/Methods used in placement: stylet Insertion site: oral Blade type: Casey Video blade type: Miller Blade size: 3 Cormack-Lehane (video): grade I - full view of glottis Cuff volume: 5 mL Cuff inflated with: air ETT to lips: 22 cm Placement verified by: auscultation and CO2 detection Airway secured with: silk tape Number of attempts: 1no UTING SERVICES DIRECTOR documented in this encounter Plan of Treatment Not on file documented as of this encounter Procedures Procedure Name Priority Date/Time Associated Diagnosis Comments IL AN PROCEDURE PLACEHOLDER Routine 07/04/2023 7:25 PM COMPUTING SERVICES DIRECTOR IL AN ELECTIVE ENDOTRACHEAL AIRWAY Routine 07/04/2023 7:25 PM COMPUTING SERVICES DIRECTOR documented in this encounter Results * IL AN ELECTIVE ENDOTRACHEAL AIRWAY, IL AN PROCEDURE PLACEHOLDER (07/04/2023 7:25 PM COMPUTING SERVICES DIRECTOR) Narrative Christoph Singh CRNA - 07/04/2023 7:25 PM COMPUTING SERVICES DIRECTOR Christoph Singh CRNA ? 07/04/2023 ??7:26 PM Airway Patient location: OR Urgency: elective Indications for airway management: anesthesia Difficult airway: no Staff: Placed by: TIP MENDER: Christoph Singh CRNA Emergent airway documentation: Risks and benefits discussed: yes Consent obtained: yes Consent given by: patient Airway prep: Preoxygenated: yes Patient position: sniffing Mask difficulty assessment: 0 - not attempted Spontaneous ventilation during airway: absent Sedation level during airway: GA Final airway details: Final airway type: endotracheal airway Tube type: ETT ETT size: 7.5 mm Cuffed: yes Technique used for successful ETT placement: video laryngoscopy Devices/Methods used in placement: stylet Insertion site: oral Blade type: Casey Video blade type: Miller Blade size: 3 Cormack-Lehane (video): grade I - full view of glottis Cuff volume: 5 mL Cuff inflated with: air ETT to lips: 22 cm Placement verified by: auscultation and CO2 detection Airway secured with: silk tape Number of attempts: 1no Artem Zepeda MD ANESTHESIA ORDERABLES Final Re sult documented in this encounter Visit Diagnoses Not on filedocumented in this encounter Administered Medications Inactive Administered Medications - up to 3 most recent administrations Medication Order MAR Action Action Date Dose Rate Site ceFAZolin (ANCEF) injection intravenous, Administer over 3 Minutes, As needed, Starting on Tue07/04/23 at 1920, Anesthesia Intra-op Given 07/04/2023 7:20 PM COMPUTING SERVICES DIRECTOR 2,000 mg fentaNYL (SUBLIMAZE) preservative free injection intravenous, As needed, Starting on Tue07/04/23 at 1910, Anesthesia Intra-op Given 07/04/2023 7:34 PM COMPUTING SERVICES DIRECTOR 50 mcg Given 07/04/2023 7:10 PM COMPUTING SERVICES DIRECTOR 50 mcg ketorolac (TORADOL) 30 mg/mL (1 mL) injection intravenous, As needed, Starting on Tue07/04/23 at 1953, Anesthesia Intra-op Given 07/04/2023 7:53 PM COMPUTING SERVICES DIRECTOR 15 mg lidocaine (cardiac) (XYLOCAINE) preservative free injection intravenous, As needed, Starting on Tue07/04/23 at 1915, Anesthesia Intra-op, Indications: Ventricular ArrhythmiasIndications:Ventricular Arrhythmias Given 07/04/2023 7:15 PM COMPUTING SERVICES DIRECTOR 100 mg midazolam (VERSED) 2 mg/2 mL preservative free injection intravenous, Administer over 2 Minutes, As needed, Starting on Tue07/04/23 at 1908, Anesthesia Intra-op Given 07/04/2023 7:08 PM COMPUTING SERVICES DIRECTOR 2 mg ondansetron (ZOFRAN) injection intravenous, Administer over 2 Minutes, As needed, Starting on Tue07/04/23 at 1934, Anesthesia Intra-op Given 07/04/2023 7:34 PM COMPUTING SERVICES DIRECTOR 4 mg phenylephrine (KARLI-SYNEPHRINE) 1 mg/10 mL (100 mcg/mL) in sodium chloride 0.9% (premix) intravenous, As needed, Starting on Tue07/04/23 at 1928, Anesthesia Intra-op Given 07/04/2023 7:53 PM COMPUTING SERVICES DIRECTOR 100 mcg Given 07/04/2023 7:47 PM COMPUTING SERVICES DIRECTOR 100 mcg Given 07/04/2023 7:44 PM COMPUTING SERVICES DIRECTOR 100 mcg propofoL (DIPRIVAN) 10 mg/mL IV intravenous, As needed, Starting on Tue07/04/23 at 1916, Anesthesia Intra-op New Bag 07/04/2023 7:16 PM COMPUTING SERVICES DIRECTOR 200 mg rocuronium (ZEMURON) injection intravenous, As needed, Starting on Tue07/04/23 at 1916, Anesthesia Intra-op Given 07/04/2023 7:16 PM COMPUTING SERVICES DIRECTOR 10 mg sodium chloride 0.9% infusion 30 mL/hr, intravenous, Continuous, Starting on Tue07/04/23 at 1915, Pre-Op Restarted 07/04/2023 8:01 PM COMPUTING SERVICES DIRECTOR Rate/Dose Verify 07/04/2023 7:08 PM COMPUTING SERVICES DIRECTOR 30 mL/h r New Bag 07/04/2023 6:54 PM COMPUTING SERVICES DIRECTOR 30 mL/hr 30 mL/hr succinylcholine syringe intravenous, As needed, Starting on Tue07/04/23 at 1916, Anesthesia Intra-op Given 07/04/2023 7:16 PM COMPUTING SERVICES DIRECTOR 100 mg documented in this encounter Care Teams Boiler Operator Relationship Specialty Start Date End Date Carl Strickland MD [address] [facility] [address] [place] [address] PCP - General Internal Medicine 06/06/23 Leo Manzano MD [address] [facility] [id number] [place] [address] Surgeon Vascular Surgery 05/16/23 documented as of this encounter
--- OUTSIDE RECORDS SUMMARY | 2024-05-30 05:37 | XMS_ITS | Encounter Summary ---
Author Organization [facility] Healthcare Address [address] [place] [place] [address] Care Team Providers Care Vice President Biostatistics Name Role Phone Leo Manzano MD Unavailable [phone] Carl Strickland MD Primary Care Provider Reason for Visit * Reason Comments Abdominal Pain * Auth/Cert (Routine) Specialty Diagnoses / Procedures Referred By Contac t Referred To Contact Diagnoses Ureteral stone Left flank pain Procedures N/A Referral ID Status Reason Start Date Expiration Date Visits Re quested Visits Authorized [id number] 1 1 Encounter Details Date Type Department Care Team (Latest Contact Info) Description 07/04/2023 12:12 PM RAIL WASHER - 07/08/2023 3:00 PM RAIL WASHER Hospital Encounter [facility] [address] [place] [address] Nagi Landa MD [address] [place] [address] Chelle Elliott MD [address] [place] [address] Marcus Gamboa MD [address] [place], [place] [id number] Left flank pain (Primary Dx); Ureteral stone Discharge Disposition: Discharge to home or self care Social History Tobacco Use Types Packs/Day Years Used Date Smoking Tobacco: Never Smokeless Tobacco: Never Alcohol Use Standard Drinks/Week Comments Not Currently 0 (1 standard drink = 0.6 oz pur e alcohol) [facility] Utilities Answer Date Recorded In the [...] often do you attend chur ch or advent services? More than 4 times per year [...] on file Legal Sex Male 3:42 AM RAIL WASHER Gender Identity Not on file Sexual Orientation Straight 06/12/2023 11 :43 PM RAIL WASHER documented as of this encounter Last Filed Vital Signs Vital Sign Reading Time Taken Comments Blood Pressure 135/88 07/08/2023 11:40 AM RAIL WASHER Pulse 74 07/08/2023 11:40 AM RAIL WASHER Temperature 36.8 ??C (98.2 ??F) 07/08/2023 11:[address] Respiratory Rate 18 07/08/2023 11:40 AM RAIL WASHER Oxygen Saturation 96% 07/08/2023 11:40 AM RAIL WASHER Inhaled Oxygen Concentration - - Weight 97.5 kg (215 lb) 07/04/2023 11:41 AM RAIL WASHER Height 175.3 cm (5' 9 ) 07/04/2023 11:41 AM RAIL WASHER Body Mass Index 31.75 07/04/2023 11:41 AM RAIL WASHER documented in this encounter Discharge Summaries * Gisele Courtney PAINTER DECORATOR - 07/08/2023 1:02 PM CST Inpatient Discharge Summary BRIEF OVERVIEW Admitting Provider: Marcus Gamboa MD Discharge Provider: Marcus Gamboa MD Primary Care Physician at Discharge: Carl Strickland MD [phone] Admission Date: 07/04/2023 Discharge Date: 07/08/2023 Admission Location: [facility] Problems/Diagnoses: Principal Problem: Ureteral stone Active Problems: Left flank pain Resolved Problems: No resolved hospital problems. DETAILS OF HOSPITAL STAY Presenting Problem/History of Present Illness: Eriberto Chau is a 33 y.o. 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 [address] 10/07/2023 9:00 AM [facility] BJUS3 BJN US [facility] Main IMG 10/07/2023 10:00 AM Marcus Gamboa MD URO CAM [address]C [address] Contact Information for Follow-ups [facility] Specialty: Vascular Surgery [address] [place] [address] 8th [address] [facility] [address] Next Steps: Follow up Instructions: Surveillance after [...] Marcus Gamboa MD at 07/14/2023 5:32 PM RAIL WASHER WASHER WASHER documented in this encounter Discharge Instructions * Discharge Instructions* Gisele Courtney NP - 07/08/2023 11:14 AM RAIL WASHER Images from the original note were not [...] within 3 months. Medications: You may take [id number] stool softener to prevent constipation. Take all [...] condition worsens. Please follow up in the [place] clinic for stent removal on 07/14/2023 as scheduled. Please call [phone] with any questions or concerns. WASHER WASHER WASHER documented in this encounter Medications at Time [...] Surgery Daily Progress Patient Name/MRN: Eriberto Chau [id number] Treatment Team: Vascular Surgery- Attending: Marcus Gamboa [facility]* Today's Date: 07/08/2023 Room/Bed: [id number] Admit Date: 07/04/2023 Code Status: Full Code Subjective Chief complaint: left ureteral stone Hospital course S/p ureteral stone extraction and ureteral stent 2/5 with urology Events Over Last 24 Hours: - remains afebrile, HDS - WBC 12.6 (15.7), hgb 8 (7.9) - pain control improving with multimodal regimen - planning discharge today Allergies Allergen Reactions Lisinopril Angioedema Amoxicillin Hives Current Facility-Administered Medications Medication Dose Route Frequency Provider Last Rate Last Admin acetaminophen (TYLENOL) tablet 1,000 mg 1,000 mg oral Q6H [facility] Kristine Viera MD 1,000 mg at 07/08/23 [...] Daily-2100 Gisele Courtney NP 40 mg at 07/07/230 gabapentin (NEURONTIN) capsule 300 mg 300 mg oral TID Terrell Luna MD 300 mg at 07/08/23 0819 hydrALAZINE (APRESOLINE) tablet 50 mg 50 mg oral TID Terrell Luna MD 50 mg at 07/08/23 0837 hyoscyamine (LEVSIN) sublingual tablet 125 mcg 125 mcg sublingual Q6H Gisele Courtney NP ketorolac (TORADOL) 15 mg/mL injection 15 mg 15 mg intravenous Q6H Gisele Perez PAINTER DECORATOR 15 mg at07/08/23 0539 methocarbamoL (ROBAXIN) tablet 750 mg 750 mg oral TID Gisele Courtney PAINTER DECORATOR 750 mg at 07/08/23 0820 ondansetron (ZOFRAN) injection 4 mg 4 mg intravenous Q6H PRN Gisele Courtney PAINTER DECORATOR 4 mg at 07/07/23 1018 oxyBUTYnin XL (DITROPAN-XL) extended release tablet 10 mg 10 mg oral Daily Gisele Courtney PAINTER DECORATOR 10 mg at 07/08/23 0820 oxyCODONE (ROXICODONE) tablet 5 mg 5 mg oral Q4H PRN America Rowe MD 5 mg at 07/08/23 0959 phenazopyridine (PYRIDIUM) tablet 200 mg 200 mg oral TID with meals Gisele Courtney PAINTER DECORATOR 200 mg at 07/08/23 0820 prochlorperazine (COMPAZINE) injection 5 mg 5 mg intravenous Q6H PRN Gisele Courtney PAINTER DECORATOR 5 mg at 07/07/23 0634 ramelteon (ROZEREM) [...] mg 15 mg/kg intravenous Q12H Gisele Courtney, PAINTER DECORATOR Stopped at 07/08/23 0341 Objective Vitals: 24hr [...] Adult Diet Regular Diet effective now Question: ([facility]) Diet type Answer: Regular 07/06/23 1125 07/05/23 1453 Oral Nutrition Supplements ([facility]) Select Supplement: Thrive - Any Flavor; Quantity (# of cans): 1 can All Meals Question Answer Comment ([facility]) Select Supplement: Thrive - Any Flavor Quantity (# of cans): 1 can 07/05/23 1452 Is&Os: I/O last 2 completed shifts: In: 2444 [P.O.:920; I.V.:999; IV Piggyback:525] Out: 2800 [Urine:2800] I/O this shift: In: 950 [P.O.:950] Out: 950 [Urine:950] Labs/Imaging: Recent Labs Lab Units 07/06/23 2204 07/06/23 0526 07/05/23 2114 WBC K/cumm 12.6* 15.7* 19.6* HEMOGLOBIN g/dL 8.0* 7.9* 7.8* HEMATOCRIT % 24.6* 23.9* 24.9* PLATELETS K/cumm 368 327 351 Recent Labs Lab Units 07/06/23 2204 07/05/23211307/04/23 1223 SODIUM mmol/L 140 140 137 POTASSIUM [...] Alonzo Duncan MD at 07/08/2023 1:46 PM RAIL WASHER WASHER WASHER * Chung Burleson MD - 07/08/2023 11:00 [...] tablet 1,000 mg 1,000 mg oral Q6H [facility] amLODIPine (NORVASC) tablet 10 mg 10 mg oral Daily aspirin chewable tablet 81 mg 81 mg oral Daily carvediloL (COREG) tablet 25 mg 25 mg oral BID with meals (bkfst, dinner) cefepime (MAXIPIME) 1,000 mg/10 mL in sterile water (premix) 1,000 mg 1,000 mg intravenous Q12H [facility] enoxaparin (LOVENOX) syringe 40 mg 40 mg subcutaneous Daily-2100 gabapentin (NEURONTIN) capsule 300 mg 300 mg oral TID hydrALAZINE (APRESOLINE) tablet 50 mg 50 mg oral TID hyoscyamine (LEVSIN) sublingual tablet 125 mcg 125 mcg sublingual Q6H ketorolac (TORADOL) 15 mg/mL injection 15 mg 15 mg intravenous Q6H [facility] methocarbamoL (ROBAXIN) tablet 750 mg 750 mg oral TID oxyBUTYnin XL (DITROPAN-XL) extended release tablet 10 mg 10 mg oral Daily phenazopyridine (PYRIDIUM) tablet 200 mg 200 mg oral TID with meals senna-docusate (PERICOLACE) 8.6-50 mg per tablet 2 tablet 2 tablet oral BID sodium chloride 0.9% flush 0.5-20 mL 0.5-20 mL intra-catheter Q8H [facility] tamsulosin (FLOMAX) extended release capsule 0.4 mg [...] tablet 1,000 mg 1,000 mg oral Q6H [facility] Kristine Viera MD 1,000 mg at 07/08/23 [...] mg 1,000 mg intravenous Q12H Gisele Mckeon PAINTER DECORATOR 120 mL/hr at 07/08/23 1211 1,000 mg at 07/08/23 1211 enoxaparin (LOVENOX) syringe 40 mg 40 mg subcutaneous Daily-2100 Gisele Courtney PAINTER DECORATOR 40 mg at 07/07/23 2120 gabapentin (NEURONTIN) capsule 300 mg 300 mg oral TID Terrell Luna MD 300 mg at 07/08/23 0819 hydrALAZINE (APRESOLINE) tablet 50 mg 50 mg oral TID Terrell Luna MD 50 mg at 07/08/23 0837 hyoscyamine (LEVSIN) sublingual tablet 125 mcg 125 mcg sublingual Q6H Gisele Courtney PAINTER DECORATOR 125 mcg at 07/08/23 1234 ketorolac (TORADOL) 15 mg/mL injection 15 mg 15 mg intravenous Q6H [facility] Gisele Courtney, PAINTER DECORATOR 15 mg at07/08/23 1211 methocarbamoL (ROBAXIN) tablet 750 mg 750 mg oral TID Gisele Courtney, PAINTER DECORATOR 750 mg at 07/08/23 0820 ondansetron (ZOFRAN) injection 4 mg 4 mg intravenous Q6H PRN Gisele Courtney NP 4 mg at 07/07/23 1018 oxyBUTYnin XL (DITROPAN-XL) extended release tablet 10 mg 10 mg oral Daily Gisele Courtney NP 10 mg at 07/08/23 0820 oxyCODONE (ROXICODONE) tablet 5 mg 5 mg oral Q4H PRN America Rowe MD 5 mg at 07/08/23 1436 phenazopyridine (PYRIDIUM) tablet 200 mg 200 mg oral TID with meals Gisele Courtney NP 200 mg at 07/08/23 1212 prochlorperazine (COMPAZINE) [...] Gisele Courtney NP Stopped at 07/08/23 0341 Current Outpatient Medications [...] Adult Diet Regular Diet effective now Question: ([facility]) Diet type Answer: Regular 07/06/23 1125 07/05/23 1453 Oral Nutrition Supplements ([facility]) Select Supplement: Thrive - Any Flavor; Quantity (# of cans): 1 can All Meals Question Answer Comment ([facility]) Select Supplement: Thrive - Any Flavor Quantity [...] IV: Discontinue Hydromorphone 0.5mg q 4hr PRN IV/GEAR MACHINE OPERATOR GENERAL: none SubQ: none b. Adjuvants: Continue APAP [...] MD Acute Pain Service Department of Anesthesiology [facility] [phone] This pager does not accept voice messages. Please enter your callback number and press #. 07/08/2023 6:32 PM I have seen and evaluated the patient and agree with the above Chung Burleson MD WASHER WASHER WASHER * Dalton Vizcaino MD - 07/07/2023 9:00 PM CST Vascular Surgery Daily Progress Patient Name/MRN: Eriberto Chau [id number] Treatment Team: Vascular Surgery- Attending: Marcus Gamboa* Today's Date: 07/08/2023 Room/Bed: [place] [id number] Admit Date: 07/04/2023 Code Status: Full Code [...] (premix) 1,000 mg 1,000 mg intravenous Q12H SCHEGisele hawthorne PAINTER DECORATOR 120 mL/hr at 07/08/230 1,000 mg at 07/08/230 enoxaparin (LOVENOX) syringe 40 mg 40 mg subcutaneous Daily-2099 Gisele Courtney, PAINTER DECORATOR 40 mg at 07/07/232119 gabapentin (NEURONTIN) capsule 300 mg 300 mg oral TID Terrell Luna MD 300 mg at 07/07/232122 hydrALAZINE (APRESOLINE) tablet 50 mg 50 mg oral TID Terrell Luna MD 50 mg at 07/07/232123 HYDROmorphone (DILAUDID) injection 0.5 mg 0.5 mg intravenous Q2H PRN America Rowe MD 0.5 mg at 07/07/232116 hyoscyamine (LEVSIN) injection 0.25 mg 0.25 mg intravenous Q6H [facility] Gisele Courtney PAINTER DECORATOR 0.25 mg at 07/08/239 ketorolac (TORADOL) 15 mg/mL injection 15 mg 15 mg intravenous Q6H [facility] Gisele Courtney, PAINTER DECORATOR 15 mg at07/08/239 Lactated Ringer's (LR) infusion 125 mL/hr intravenous Continuous America Rowe MD 125 mL/hr at 07/07/232117 125 mL/hr at 07/07/232117 methocarbamoL (ROBAXIN) tablet 750 mg 750 mg oral TID Gisele Courtney PAINTER DECORATOR 750 mg at 07/07/232119 ondansetron (ZOFRAN) injection 4 mg 4 mg intravenous Q6H PRN Gisele Courtney, PAINTER DECORATOR 4 mg at 07/07/23 1018 oxyBUTYnin XL (DITROPAN-XL) extended release tablet 10 mg 10 mg oral Daily Gisele Courtney, PAINTER DECORATOR 10 mg at 07/07/23 0847 oxyCODONE (ROXICODONE) tablet 5 mg 5 mg oral Q4H PRN America Rowe MD 5 mg at 07/07/23 1651 phenazopyridine (PYRIDIUM) tablet 200 mg 200 mg oral TID with meals Gisele Courtney NP 200 mg at 07/07/23 1713 prochlorperazine (COMPAZINE) injection 5 mg 5 mg intravenous Q6H PRN Gisele Courtney NP 5 mg at 07/07/23 0634 ramelteon (ROZEREM) tablet 8 mg 8 mg oral Nightly PRN Kristine Viera MD 8 mg at 07/07/234 senna-docusate (PERICOLACE) 8.6-50 mg per tablet 2 [...] mg 15 mg/kg intravenous Q12H Gisele Courtney PAINTER DECORATOR Stopped at 07/07/23 171 Objective Vitals: 24hr [...] Adult Diet Regular Diet effective now Question: ([facility]) Diet type Answer: Regular 07/06/23 1125 07/05/23 1453 Oral Nutrition Supplements ([facility]) Select Supplement: Thrive - Any Flavor; Quantity (# of cans): 1 can All Meals Question Answer Comment ([facility]) Select Supplement: Thrive - Any Flavor Quantity [...] Nikhil Samuel MD at 07/18/2023 11:03 AM RAIL WASHER WASHER WASHER WASHER * Timmy Rosales - 07/07/2023 3:53 PM CST Fr Timmy Rosales [phone] 07/07/23 1500 Time Spent Start Time 1510 Stop Time 1530 Time Calculation (min) 20 min Patient Spiritual Assessment Spirituality Assessed Yes [employer] Affiliation Church Active in Catholic Yes Spiritual Needs Communion;Prayer Clinical Encounter Type Visited With Patient and family together Response Type Continuing visit Routine Visit Follow-up Continue Visiting Yes Reason for visit Sacramental;Support Sacramental Encounters Communion Patient wants communion Communion Given Indicator Yes Outcomes and Progress Aligning care with patient's values Achieved Preserve dignity and respect Achieved Demonstrating care and respect Achieved Interventions Interventions Active listening;Offer emotional support;Offer spiritual/advent support;Prayer (Benediction) WASHER * Gisele Courtney, PAINTER DECORATOR - 07/07/2023 11:04 AM CST Images from [...] follow, appreciate recommendations Gisele Courtney NP 07/07/2023 [facility] WASHER * Timmy Rosales - 07/06/2023 3:55 PM CST Fr Timmy Rosales [phone] 07/06/23 1500 Time Spent Start Time 1310 Stop Time 1320 Time Calculation (min) 10 min Patient Spiritual Assessment Spirituality Assessed Yes [employer] Affiliation Church Active in Catholic Yes Spiritual Needs Anointing;Communion;Prayer Clinical Encounter Type [...] Achieved Interventions Interventions Active listening;Offer emotional support;Offer spiritual/advent support;Prayer (Benediction) WASHER * Gisele Courtney NP - 07/06/2023 11:23 [...] follow, appreciate recommendations Gisele Courtney NP 07/06/2023 [facility] Cosigned by Marcus Gamboa MD at 07/07/2023 6:23 AM RAIL WASHER WASHER WASHER * Georgia Novoa MD - 07/06/2023 6:00 AM CST Vascular Surgery Daily Progress Patient Name/MRN: Eriberto Chau [id number] Treatment Team: Vascular Surgery- Attending: Marcus Gamboa* Today's Date: 07/06/2023 Room/Bed: [place] [id number]/[id number] Admit Date: 07/04/2023 Code Status: Full Code [...] Daily-2100 Gisele Courtney NP 40 mg at 07/05/23 2126 gabapentin (NEURONTIN) [...] 4 mg intravenous Q6H PRN Gisele Courtney PAINTER DECORATOR 4 mg at 07/05/23 2247 oxyBUTYnin XL (DITROPAN-XL) extended release tablet 10 mg 10 mg oral Daily Gisele Courtney PAINTER DECORATOR 10 mg at 07/06/23 1206 oxyCODONE (ROXICODONE) tablet 5 mg 5 mg oral Q4H PRN America Rowe MD 5 mg at 07/06/23 0837 phenazopyridine (PYRIDIUM) tablet 200 mg 200 mg oral TID with meals Gisele Courtney PAINTER DECORATOR 200 mg at 07/06/23 1206 prochlorperazine (COMPAZINE) injection 5 mg 5 mg intravenous Q6H PRN Gisele Courtney PAINTER DECORATOR 5 mg at 07/06/23 0837 ramelteon (ROZEREM) [...] mg 15 mg/kg intravenous Q12H Gisele Courtney PAINTER DECORATOR Stopped at 07/06/23 0456 Objective Vitals: 24hr [...] Adult Diet Regular Diet effective now Question: ([facility]) Diet type Answer: Regular 07/06/23 1125 07/05/23 1453 Oral Nutrition Supplements ([facility]) Select Supplement: Thrive - Any Flavor; Quantity (# of cans): 1 can All Meals Question Answer Comment ([facility]) Select Supplement: Thrive - Any Flavor Quantity (# of cans): 1 can 07/05/23 1452 Is&Os: I/O last 2 completed shifts: In: 0 Out: 1696 [Urine:1696] I/O this shift: In: 1020 [I.V.:1010; IV Piggyback:10] Out: 625 [Urine:625] Labs/Imaging: Recent Labs Lab Units 07/06/2352507/05/23211307/05/23 1309 WBC K/cumm 15.7* 19.6* 15.3* HEMOGLOBIN g/dL 7.9* 7.8* 9.0* HEMATOCRIT % 23.9* 24.9* 28.1* PLATELETS K/cumm 327 351 359 Recent Labs Lab Units 02/06/24 2114 02/05/24 1223 SODIUM mmol/L 140 137 POTASSIUM PLASMA [...] Nikhil Samuel MD at 07/18/2023 11:03 AM RAIL WASHER WASHER WASHER * Kristy Headley MD - 07/05/2023 12:41 PM CST Vascular Surgery Daily Progress Patient Name/MRN: Eriberto Chau [id number] Treatment Team: Vascular Surgery- Attending: Marcus Gamboa* Today's Date: 07/05/2023 Room/Bed: [id number] Admit Date: 07/04/2023 Code Status: Full Code [...] Ringer's (LR) infusion 100 mL/hr intravenous Continuous Barrientos PumaNavid jensen MD 100 mL/hr at 07/05/23 0446 100 [...] Adult Diet Regular Diet effective now Question: ([facility]) Diet type Answer: Regular 07/04/232146 Is&Os: I/O [...] Nikhil Samuel MD at 07/18/2023 11:03 AM RAIL WASHER WASHER WASHER * Gisele Courtney PAINTER DECORATOR - 07/05/2023 12:30 PM CST Images from [...] follow, appreciate recommendations Gisele Courtney NP 07/05/2023 [facility] Cosigned by Marcus Gamboa MD at 07/14/2023 5:32 PM RAIL WASHER WASHER WASHER WASHER WASHER * Navid Johnson MD - 07/04/2023 10:51 [...] Marcus Gamboa MD at 07/05/2023 7:13 AM RAIL WASHER WASHER WASHER Associated attestation - Marcus Gamboa MD - 07/05/2023 7:13 AM RAIL WASHER I have seen and examined the patient on 07/04/2023. I agree with the findings and plan of care as documented in the resident's/fellow's note.. documented in this encounter Consult Notes * Chung Burleson MD - 07/07/2023 6:22 PM CSTAssociated Order(s): IP CONSULT TO PAIN MANAGEMENT Pain Service Consult Eriberto Chau, [id number] Reason for Consult: Post procedural abdominal pain [...] Amitriptyline (Elavil) [] Levetiracetam (Keppra) [] Hydrocodone/APAP ([place]) [] Desipramine (Norpramin) [] Valproate (Depakote) [] [...] 1,000 mg 1,000 mg intravenous Q12H Gisele Mckeon, PAINTER DECORATOR Stopped at 07/07/23 1252 enoxaparin (LOVENOX) syringe 40 mg 40 mg subcutaneous Daily-2100 Gisele Courtney NP 40 mg at 07/06/232014 gabapentin (NEURONTIN) capsule 300 mg 300 mg oral TID Terrell Luna MD 300 mg at 07/07/231712 hydrALAZINE (APRESOLINE) tablet 50 mg 50 mg oral TID Terrell Luna MD 50 mg at 07/07/23 171 HYDROmorphone (DILAUDID) injection 0.5 mg 0.5 mg intravenous Q2H PRN America Rowe MD 0.5 mg at 07/07/23 1444 hyoscyamine (LEVSIN) injection 0.25 mg 0.25 mg intravenous Q6H [facility] Gisele Courtney PAINTER DECORATOR 0.25 mg at 07/07/23 1713 ketorolac (TORADOL) 15 mg/mL injection 15 mg 15 mg intravenous Q6H [facility] Gisele Courtney PAINTER DECORATOR 15 mg at07/07/23 1713 Lactated Ringer's (LR) [...] mg oral TID with meals Gisele Courtney PAINTER DECORATOR 200 mg at 07/07/23 1713 prochlorperazine (COMPAZINE) injection 5 mg 5 mg intravenous Q6H PRN Gisele Courtney PAINTER DECORATOR 5 mg at 07/07/23 0634 ramelteon (ROZEREM) [...] Adult Diet Regular Diet effective now Question: ([facility]) Diet type Answer: Regular 07/06/23 1125 07/05/23 1453 Oral Nutrition Supplements ([facility]) Select Supplement: Thrive - Any Flavor; Quantity (# of cans): 1 can All Meals Question Answer Comment ([facility]) Select Supplement: Thrive - Any Flavor Quantity [...] in this interval not displayed. Assessment/Plan Eriberto Briagas is a 33 y.o. male who presents with Other acute post-procedural pain, Acute Postoperative Abdominal Pain, and Low Back Pain. Plan 1. Intervention: No intervention needed at this current time. No procedure is indicated 2. Medications: a. Opioids: PO: increase Oxycodone 10mg q 4hr PRN IV: decrease Hydromorphone 0.5mg q 4hr PRN IV/GEAR MACHINE OPERATOR GENERAL: none SubQ: none b. Adjuvants: Continue APAP [...] MD Acute Pain Service Department of Anesthesiology [facility] If you have questions or concerns, please call ([phone]) the Pain Management service. After hours, this is not an in-house pager, please reserve non-urgent calls from [phone]. We are happy to address emergent calls 20/12. 07/07/23 6:22 PM For patients or family members viewing this note through [employer] programs: This note was written as a [...] agree with the above Chung Burleson MD WASHER WASHER * Dominic Meraz, DIRK - 07/07/2023 5:10 PM CST NUTRITION ASSESSMENT [...] (bkfst, dinner) cefepime, 1,000 mg, intravenous, Q12H [facility] enoxaparin, 40 mg, subcutaneous, Daily-2100 gabapentin, 300 [...] 18 CREATININE mg/dL 0.80 < > 1.33* [id number] mL/min/1.73 m2 >90 < > 73 CALCIUM [...] of Weight Used for Estimated Protein : Cecilia Fluid Needs Based on : 1 ml/kcal Dietary Orders (From admission, onward) Start Ordered 07/06/23 1126 Adult Diet Regular Diet effective now Question: ([facility]) Diet type Answer: Regular 07/06/23 1125 07/05/23 1453 Oral Nutrition Supplements ([facility]) Select Supplement: Thrive - Any Flavor; Quantity (# of cans): 1 can All Meals Question Answer Comment ([facility]) Select Supplement: Thrive - Any Flavor Quantity [...] emesis was 07/04 per documentation. Last BM FORMAL WEAR RENTAL CLERK - Noted scheduled Pericolace BID. RD following. [...] Supplement tolerance, Electrolyte changes Dominic Meraz RD [phone] [employer] Developer-Weekend: [phone] WASHER * Angelica Mijares LCSW - 07/07/2023 4:43 PM CST SW consult: SW received consult for health disparity and social determinants of health. SW spoke with patient's mom regarding resource assistance needs. Patient's mom reported they have been assisting with their rent and utilities, however they are unsure how long he will be out of workand cannot financially support them terminal gauger. She also requested information and assistance with disability. SW sent several referrals via [employer] for rental/mortgage assistance, utility bill assistance, and benefits eligibility assistance. She declined the need for any food related assistance as they already get food stamps for the family. She requested someone follow up with her regarding which referrals are accepted and able to provide assistance. LIZZ Hodgson LCSW WASHER * Dominic Meraz RD - 07/05/2023 4:09 [...] BUN SERUM mg/dL 18 CREATININE mg/dL 1.33* [id number] mL/min/1.73 m2 73 CALCIUM mg/dL 10.1 ALBUMIN [...] of Weight Used for Estimated Protein : Cecilia Fluid Needs Based on : 1 ml/kcal Dietary Orders (From admission, onward) Start Ordered 07/05/23 1453 Adult Diet Regular; Gatorade Diet effective now Comments: Please allow pt to order Gatorade as requested. Question Answer Comment ([facility]) Diet type Regular Other Services: Gatorade 07/05/23 1452 07/05/23 1453 Oral Nutrition Supplements ([facility]) Select Supplement: Thrive - Any Flavor; Quantity (# of cans): 1 can All Meals Question Answer Comment ([facility]) Select Supplement: Thrive - Any Flavor Quantity [...] episode of emesis on 07/04. Last BM FORMAL WEAR RENTAL CLERK. RD following. Wt Readings from Last 10 [...] Supplement tolerance, Electrolyte changes Dominic Meraz RD [phone] [employer] Developer-Weekend: [phone] WASHER * Dalton Vizcaino MD - 07/04/2023 5:15 [...] change is contributing to current clinical symptoms. Datlon Vizcaino MD Department of Surgery, PGY-2 [facility] in [place] Please use [email or web address] to find phone number Cosigned by Nikhil Samuel MD at 07/18/2023 11:02 AM RAIL WASHER WASHER WASHER * File, Paris Esquivel NP - 07/04/2023 [...] or concerns, please page Urology through the egg breaking machine operator. Paris Villalpando NP 07/04/2023 Cosigned by Marcus Gamboa MD at 07/04/2023 6:50 PM RAIL WASHER WASHER WASHER documented in this encounter Nursing Notes * Mariposa Harris RN - 07/08/2023 3:00 PM CST Patient discharged to home with mother. IV removed, meds received from mobile pharmacy, and discharge paperwork given and reviewed with patient. WASHER * Alicia Good RN - 07/07/2023 7:48 PM CST Pt. Is A&OX4, continue to complain of pain, had scheduled and PRN pain meds multiple times 9 oxy, dialudid), contd. On IVF, ambulated well with walker, eating meals good, was nauseated little in the morning, got some zofran, but has been better through the day WASHER * Idalia Travis RN - 07/06/2023 8:03 AM CST Pt returned to room [address], BP 140/68 WASHER * Sherri Negrete RN - 07/05/2023 4:35 [...] [id number] Dr. Barrientos updated the LR order WASHER WASHER documented in this encounter ED Notes * [...] Chronic back pain 06/24/2023 Pseudoaneurysm following procedure ([facility]) ([facility]) 06/24/2023 Infrarenal abdominal aortic aneurysm, without rupture ([facility]) 06/13/2023 Polysubstance abuse ([facility]) ([facility]) 06/10/2023 Moderate malnutrition ([facility]) ([facility]) 06/09/2023 Dissection of abdominal aorta ([facility]) ([facility]) 06/03/2023 Urinary retention 05/16/2023 Epistaxis 05/13/2023 Pneumonia 05/13/2023 HTN (hypertension) 05/13/2023 Dissection of thoracoabdominal aorta ([facility]) ([facility]) 05/02/2023 Dissection of aorta, unspecified portion of aorta ([facility]) 05/01/2023 Past Medical History: Diagnosis Date Hypertension [...] Course as of 07/05/23 1609 Time: 07/04 1443 Comment: Spoke to radiology, 3 mm prox ureter stone. Slight increase in aortic size, unlikely to explain symptoms. By: Jonathan Borja MD Time: 07/04 003 Comment: IMPRESSION: 1. Redemonstrated thoracoabdominal aortic dissection [...] of previousdissection. Pending vascular. Admit pending urology. Ney Rowland MD, am taking signout and assuming care [...] Nagi Landa MD at 07/07/2023 9:57 AM RAIL WASHER WASHER WASHER WASHER Associated attestation - Nagi Landa MD - 07/07/2023 9:57 AM RAIL WASHER I have seen and examined the patient on 07/04/2023. I agree with the findings and plan of care as documented in the resident's note. * Essie Cuevas RN - 07/04/2023 12:12 PM CST Bed: [facility] Expected date: Expected time: Means of arrival: Comments: Triage pt Essie Cuevas RN 02/05/24 1212 WASHER * Tami Díaz RN - 07/04/2023 11:35 AM CST Pt to ED with lower left ABD pain this morning around 0900. Pt states he has chronic lower back pain but now the pain radiates to his ABD. Hx of HTN, AAA post TEVAR on 06/05 and kidney stones. WASHER documented in this encounter Miscellaneous Notes * [...] lb) as of 07/04/2023 -- -- -- Cecilia Weight: 70.7 kg (155 lb 13.8 oz) [...] medical record. Respectfully Lon HAMMER RN CCDS [email or web address] [phone] WASHER * Provider Query - Gisele Courtney PAINTER DECORATOR - 07/08/2023 3:00 PM CST Specify a [...] fat ? muscle ? fluid/edema 6: Reduced Plumbing Instructor Strength n/a Measurably reduced per device standards [...] medical record. Respectfully Lon HAMMER RN CCDS [email or web address] [phone] WASHER * Plan of Care - Mariposa Harris [...] control, safety Summary: Patient ready for discharge. WASHER * Plan of Care - Anabel Taylor [...] needs. Support following discharge: meron blankenship Mother [phone]; Solange Ireland [phone]; Geri Alejandre Partner [phone] Transportation: per mother F/U Appointments: to be arranged by the medical team prior to discharge Plan for weekend discharge: No identified CM needs at this time For weekend assistance, please check the treatment team in [facility] for the assigned caseworker or contact the weekend Case Management phone WASHER * Plan of Care - Navin Ventura [...] Shift: monitor pain, spasm, I/O, vitals Summary: WASHER * Plan of Care - Harriett Ordonez [...] activity level will improve Outcome: Not Progressing WASHER * Plan of Care - Genevieve Ng LCSW - 07/06/2023 3:25 PM CST SW consulted due to patient being a 35% readmission risk, and this being patient's 5th inpatient admission. Patient was seen last admission by SW and SW assessment was completed on 06/15/2023. Patient's mother, Meron Blankenship ([phone]) was present at bedside at time of [...] to continue to follow. Genevieve Ng LCSW [phone] Predictive Model Details 35% (High Risk) Factor [...] 1% Current length of stay 0.942 days WASHER * Initial Assessments - Anabel Taylor RN - 07/06/2023 2:43 PM RAIL WASHER CM Initial Assessment Interview Note Information Obtained From: Other (Specify) Name: Mother at bedside. Patient is jr (07/06/231439) Admission Source: Home Impression: 33 year old [...] need discharge transport arranged?: No (per mother) (07/06/231439) Health Insurance Coverage: [employer] Medicaid Prescription Coverage: yes Pharmacy: [facility]/pharmacy #[id number] - [place], [place] - [address] [facility] [address] [id number] - [place], [place] - [address] [facility] [phone] -verified [facility] Primary Care Provider: Carl Strickland MD -new patient appointment Jul 13, 2023 Prior to Admission: Functional Status: Independent with ADLs Primary Caregiver: Self Support System: Spouse/Significant Other, Family members (meron blankenship Mother [phone]; Solange Ireland [phone]; HillCesaralfred Partner [phone]) Home Care Services: No Outpatient Services: No Durable Medical Equipment: Walker (wheeled), Rollator, Wheelchair ramp Living Arrangements: Spouse/significant other, Children (fiance and 7 children) Type of Residence: Private residence Steps in home?: Yes, Outside of home Number of steps outside: 5 steps Medication management: Independent (07/06/231439) Potential discharge needs include: Home Health: None (02/07/24 1440) Dialysis: NA Behavioral Health Services: Patient expects to be Discharged to: Private residence, (07/06/23 144) Additional Information: Patient lives in a private [...] Collaboration with patient, MD, direct care nurse, Counselor Aide, and other members of the health care team to assure needed interventions completed. 2. Return patient to optimal level of self-care post discharge. 3. Set Up / Operator will follow for Discharge Planning - interventions [...] with the aftercare plan. Anabel Taylor RN WASHER * Plan of Care - Harriett Ordonez - 07/06/2023 5:11 AM CST Goals: Clinical [...] the pain will improve Outcome: Ongoing Summary: WASHER * Plan of Care - Ev Meza RN - 07/05/2023 6:24 PM CST Goals: Clinical Goals for the Shift: orient patient to floor, monitor vitals and I&O's, pain management, ambulation Summary: Continue to monitor vitals and temp for fever. Monitor and treat pain as ordered. WASHER * Plan of Care - Sherri Negrete [...] 023 by Sherri Negrete RN Outcome: Progressing 07/05/2023 004 by Sherri Negrete RN Outcome: Progressing Problem: [...] 0232 by Sherri Negrete RN Outcome: Progressing 07/05/202343 by Sherri Negrete RN Outcome: Progressing Goals: Clinical Goals for the Shift: orient patient to floor, monitor vitals and I&O's, pain management, ambulation Summary: patient is oriented to floor, post op vitals completed, patient ambulated well 4 hours after post op, patient has had no urine output overnight WASHER * Op Note - Marcus Gamboa MD - 07/04/2023 7:30 PM CST Operative Report SURGEON: Marcus Gamboa MD SURGICAL TEAM: Wildlife Refuge Specialist: Essie Glass RN Barn Manager: Guerrero Seals RT Scrub: Len Richards RN DATE OF SURGERY : 07/04/2023 PREOPERATIVE DIAGNOSIS: Pre-op Diagnosis * Ureteral stone [N20.1] POSTOPERATIVE DIAGNOSIS: Post-op Diagnosis * Ureteral stone [N20.1] PROCEDURE: CYSTOSCOPY, URETEROSCOPY (L) with EXTRACTION STONE (L), PLACEMENT STENT - URETERAL (L) INDICATION FOR PROCEDURE: 33yoM with a symptomatic left ureteral stone. ANESTHESIA: General IMPLANTS: Implant Name Type Inv. Item Serial No. Janitorial Account Manager Lot No. LRB No. Used Action [employer] [place] 6fr 28cm Pusher Fluoro Marker Atraumatic Insertion Latex [id number] - [id number] Stent [employer] [place] 6fr 28cm Pusher Fluoro Marker Atraumatic Insertion Latex [id number] [employer] [id number] Left 1 Implanted OPERATIVE DETAILS Estimated Blood [...] Over the wire, we advanced a 12-14 [place] x 46 cm ureteral access sheath underfluoroscopic [...] Over the wire we placed a 6 [place] x 28 cm left [employer] [place] ureteral [...] the entire procedure (including opening and closing). WASHER WASHER * Brief Op Note - Terrell Luna MD - 07/04/2023 7:30 PM RAIL WASHER Operative Progress Note Surgical Team: Surgeon(s) and Role: * Marcus Gamboa MD - Primary * Terrell Luna MD - Resident - Assisting Anesthesiologist: Artem Zepeda MD TERMINAL BLOCK ASSEMBLER: Christoph Singh CRNA Wildlife Refuge Specialist: Essie Glass RN Barn Manager: Guerrero Seals, Scrub: Len Richards RN DATE OF SURGERY [...] Analysis SURGICAL PATHOLOGY Marcus Gamboa MD 07/04/2023 1934 Implants: Implant Name Type Inv. Item Serial No. Janitorial Account Manager Lot No. LRB No. Used [employer] [place]lay [place] 6fr 28cm Pusher Fluoro Marker Atraumatic Insertion Latex [id number] - [id number] Stent [employer] Inlay [place] 6fr 28cm Pusher Fluoro Marker Atraumatic Insertion Latex [id number] [employer] [id number] Left 1 Implanted Blood/Blood Products Transfused: 0 mls Complications: None Condition on Discharge from the operating room was stable Terrell Luna MD Date: 07/04/2023 Time: 8:02 PM Cosigned by Marcus Gamboa MD at 07/04/2023 9:18 PM RAIL WASHER WASHER WASHER Associated attestation - Marcus Gamboa MD - 07/04/2023 9:18 PM RAIL WASHER I have seen and examined the patient on 07/04/23. I agree with the findings and plan of care as documented in the resident's/fellow's note.. * ED Re-evaluation Note - Ney Acosta MD - 07/04/2023 3:28 PM CST ED Re-evaluation ED Course as of 07/04/23 1625 Time: 07/04 1443 Comment: Spoke to radiology, 3 mm prox ureter stone. Slight increase in aortic size, unlikely to explain symptoms. By: Jonathan Borja MD Time: 07/047 Comment: IMPRESSION: 1. Redemonstrated thoracoabdominal aortic dissection [...] device. By: Jonathan Borja MD Time: 07/04 0287 Comment: Spoke to urology they will come see him. By: Jonathan Borja MD Time: 07/04 150 Comment: Attending sign out: 33 M with obstructing nephrolithiasis, urology to see, likely admit for pain control. Also recent Type B dissection, vascular to evaluate By: Chelle Elliott MD Time: 07/04 150 Comment: TRANSITION OF CARE: Dispo: admit Pending: workup, urology consult Summary: 33 y.o. male here with flank pain and obstructing renal stone. Slight increase of previousdissection. Pending vascular. Admit pending urology. I, Ney Acosta MD, am taking signout and assuming care of this patient from the previous physician. Final diagnoses: Left flank pain Ureteral stone By: Ney Acosta MD Time: 07/04 8834 Comment: Spoke with Urology, they think the patient would likely require admission for stent placement. Still pending vascular surgery evaluation. Unclear who the patient will be admitted to yet. By: Ney Acosta MD Time: 07/04 8817 Comment: Urology will take to the OR this afternoon. Still pending vascular eval, will send repeat page By: Ney Acosta MD McElroy, Mitchell Sterling, MD Resident 07/04/23 1528 WASHER * ED Procedure Note - Rosey Posada MD - 07/04/2023 11:53 AM RAIL WASHER Associated Order(s): ECG 12 lead Procedure ECG [...] the ED Rosey Posada MD 07/04/23 1155 WASHER documented in this encounter Plan of Treatment Pending Results Name Type Priority Associated Diagnoses Date /Time Creatine kinase (CK), total Lab STAT 07/04/2023 12:23 PM RAIL WASHER Scheduled Orders Name Type Priority Associated Diagnoses Orde r Schedule Creatine kinase (CK), total Lab STAT Once for 1 Occur rences starting 07/04/2023 until 07/04/2023 documented as of this encounter Procedures Procedure Name Priority Date/Time Associated Diagnosis Comments VANCOMYCIN LEVEL TROUGH Timed 07/07/2023 1:32 AM RAIL WASHER EGFR Routine 07/06/2023 10:04 PM RAIL WASHER CBC WITHOUT DIFFERENTIAL Routine 07/06/2023 10:04 PM RAIL WASHER PHOSPHORUS Routine 07/06/2023 10:04 PM RAIL WASHER MAGNESIUM Routine 07/06/2023 10:04 PM RAIL WASHER BASIC METABOLIC PANEL Routine 07/06/2023 10:[address] ABDOMEN PELVIS W CONTRAST ED Urgent/IP Urgent 07/06/2023 7:43 AM RAIL WASHER CBC WITHOUT DIFFERENTIAL Timed 07/06/2023 5:26 AM RAIL WASHER LACTATE Timed 07/05/2023 9:14 PM RAIL WASHER EGFR Timed 07/05/2023 9:14 PM RAIL WASHER CBC WITHOUT DIFFERENTIAL Timed 07/05/2023 9:14 PM RAIL WASHER BASIC METABOLIC PANEL Timed 07/05/2023 9:14 PM RAIL WASHER XR CHEST 1 VIEW ED Urgent/IP Urgent 07/05/2023 1:44 PM RAIL WASHER XR ABDOMEN AP 1 VIEW ED Urgent/IP Urgent 07/05/2023 1:44 PM RAIL WASHER LACTATE Routine 07/05/2023 1:09 PM RAIL WASHER BLOOD CULTURE Timed 07/05/2023 1:09 PM RAIL WASHER BLOOD CULTURE Timed 07/05/2023 1:09 PM RAIL WASHER CBC WITHOUT DIFFERENTIAL Routine 07/05/2023 1:09 PM RAIL WASHER URINE CULTURE Routine 07/05/2023 1:09 PM RAIL WASHER FL FLUOROSCOPY < 1 HOUR IP Routine 07/04/2023 8:16 PM RAIL WASHER Ureteral stone SURGICAL PATHOLOGY Routine 07/04/2023 7: 34 PM RAIL WASHER Ureteral stone EXTRACTION STONE 07/04/2023 7:10 PM RAIL WASHER Ureteral stone Case Notes [phone] PLACEMENT STENT - URETERAL 07/04/2023 7:10 PM RAIL WASHER Ureteral stone Case Notes [phone] URETEROSCOPY 07/04/2023 7:10 PM RAIL WASHER Ureteral stone Case Notes [phone] CYSTOSCOPY 07/04/2023 7:10 PM RAIL WASHER Ureteral stone Case Notes [phone] TROPONIN I HIGH-SENSITIVITY 2-HOUR Timed 07/04/2023 2:19 PM RAIL WASHER CTA CHEST ABDOMEN PELVIS ED Urgent/IP Urgent 07/04/2023 2:06 PM RAIL WASHER URINALYSIS AND REFLEX TO MICROSCOPIC STAT 07/04/2023 1:08 PM RAIL WASHER URINALYSIS, MICROSCOPIC ONLY STAT 07/04/2023 1:08 PM RAIL WASHER XR CHEST 1 VIEW ED Urgent/IP Urgent 07/04/2023 12:46 PM RAIL WASHER TROPONIN I HIGH-SENSITIVITY SERIES (BASELINE, 2HR, 4HR, 6HR) STAT 07/04/2023 12:23 PM RAIL WASHER LACTATE STAT 07/04/2023 12:23 PM RAIL WASHER EGFR STAT 07/04/2023 12:23 PM RAIL WASHER DIFFERENTIAL AUTO STAT 07/04/2023 12: 23 PM RAIL WASHER CBC WITH AUTO DIFFERENTIAL STAT 07/04/2023 12:23 PM RAIL WASHER LIPASE STAT 07/04/2023 12:23 PM RAIL WASHER CREATINE KINASE (CK), TOTAL STAT 07/04/2023 12:23 PM RAIL WASHER COMPREHENSIVE METABOLIC PANEL STAT 07/04/2023 12:23 PM RAIL WASHER ECG 12-LEAD STAT 07/04/2023 11:53 AM RAIL WASHER documented in this encounter Results * Vancomycin level trough Draw trough 30 minutes prior to 4th dose. (07/07/2023 1:32 AM RAIL WASHER) Pathologist [facility] Vancomycin trough 14.5 10.0 - 20.0 mcg/mL [facility] Blood 07/07/2023 1:32 AM RAIL WASHER 07/07/2023 1:57 AM RAIL WASHER Narrative [facility] - 07/07/2023 2:37 AM RAIL WASHER Draw trough 30 minutes prior to 4th dose. us Gisele Courtney PAINTER DECORATOR LAB BLOOD ORDERABLES Final Res ult [facility] Department [place] [address] * eGFR (07/06/2023 10:04 PM RAIL WASHER) Pathologist [facility] eGFR >90 >=60 mL/min/1. 73 m2 [facility] Comment: Interpretive Data Reference Interval Normal [...] reviewed 2021. Blood 07/06/2023 10:0 4 PM RAIL WASHER 07/06/2023 10:58 PM RAIL WASHER Marcus Gamboa MD LAB BLOOD ORDERABLE S Final Result [facility] Department [place] [address] * (ABNORMAL) CBC without differential (07/06/2023 10:04 PM RAIL WASHER) WBC 12.6(H) 3.8 - 9.9 K/cumm [facility] Hgb 8.0(L) 13.0 - 17.5 g/dL [facility] Hct 24.6(L) 38.9 - 50.3 % [facility] Plt 368 150 - 400 K/cumm [facility] MPV 9.4 9.1 - 12.3 fL [facility] RBC 2.82(L) 4.30 - 5.80 M/cumm [facility] MCV 87.2 81.3 - 96.4 fL [facility] MCH 28.4 27.1 - 33.3 pg [facility] MCHC 32.5 32.3 - 35.7 g/dL [facility] RDW CV 13.7 11.1 - 14.9 % [facility] RDW SD 43.5 35.7 - 48.1 fL [facility] NRBC abs 0.00 0.00 - 0.01 K/cumm [facility] Blood 07/06/2023 10:0 4 PM RAIL WASHER 07/06/2023 10:57 PM RAIL WASHER Marcus Gamboa MD LAB BLOOD ORDERABLE S Final Result [facility] [place] [address] * Phosphorus (07/06/2023 10:04 PM RAIL WASHER) Pathologist [facility] Phosphorus, pl 2.6 2.3 - 4.5 mg/dL [facility] Blood 07/06/2023 10:0 4 PM RAIL WASHER 07/06/2023 10:58 PM RAIL WASHER Marcus Gamboa MD LAB BLOOD ORDERABLE S Final Result Performing Organization Address City/[facility]/ZIP Co de Phone Number [facility] Department [place] [address] * Magnesium (07/06/2023 10:04 PM RAIL WASHER) [facility] Magnesium 1.7 1.4 - 2.5 mg/dL [facility] Blood 07/06/2023 10:0 4 PM RAIL WASHER 07/06/2023 10:58 PM RAIL WASHER Marcus Gamboa MD LAB BLOOD ORDERABLE S Final Result Performing Organization Address City/[facility] Co de Phone Number [facility] Department [place] [address] * (ABNORMAL) Basic metabolic panel (07/06/2023 10:04 PM RAIL WASHER) [facility] Sodium 140 135 - 145 mmol/L [facility] Potassium, pl 3.2(L) 3.3 - 4.9 mmol/L [facility] Chloride 102 97 - 110 mmol/L [facility] CO2 27 22 - 32 mmol/L [facility] Anion gap 11 2 - 15 mmol/L [facility] BUN 9 6 - 25 mg/dL [facility] Creatinine 0.80 0.80 - 1.30 mg/dL [facility] Glucose 106 70 - 199 mg/dL [facility] Comment: [...] Calcium 8.9 8.5 - 10.3 mg/dL [facility] Blood 07/06/2023 10:0 4 PM RAIL WASHER 07/06/2023 10:58 PM RAIL WASHER us Marcus Gamboa MD LAB BLOOD ORDERABLE S Final Result [facility] Department [place] [address] * CT Abdomen Pelvis W Contrast (07/06/2023 7:43 AM RAIL WASHER) Anatomical Region Laterality Modality Body N/A Computed Tomogra phy 07/06/2023 8:32 AM RAIL WASHER Impressions 07/06/2023 8:34 AM RAIL WASHER 1. 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 2. Interval placement of a left nephroureteral stent with unchanged mild hydronephrosis. Interval passing of a ureteral stone and left mid zone renal stone. Dictated by: Dalton Miilan MD The radiology attending physician has personally reviewed this study, and had reviewed and/or edited this written report and agrees with it. Electronically signed by: Katy Llamas M.D. Narrative 07/06/2023 8:34 AM RAIL WASHER EXAMINATION: ??Computed tomography of the abdomen and [...] Electronically signed by: Katy Llamas M.D. us Gisele Courtney PAINTER DECORATOR IMG CT PROCEDURES Final Result * (ABNORMAL) CBC without differential (07/06/2023 5:26 AM RAIL WASHER) [facility] WBC 15.7(H) 3.8 - 9.9 K/cumm [facility] Hgb 7.9(L) 13.0 - 17.5 g/dL [facility] Hct 23.9(L) 38.9 - 50.3 % [facility] Plt 327 150 - 400 K/cumm [facility] MPV 9.1 9.1 - 12.3 fL [facility] RBC 2.75(L) 4.30 - 5.80 M/cumm [facility] MCV 86.9 81.3 - 96.4 fL [facility] MCH 28.7 27.1 - 33.3 pg [facility] MCHC 33.1 32.3 - 35.7 g/dL [facility] RDW CV 13.9 11.1 - 14.9 % [facility] RDW SD 43.9 35.7 - 48.1 fL [facility] NRBC abs 0.00 0.00 - 0.01 K/cumm [facility] Blood 07/06/2023 5:26 AM RAIL WASHER 07/06/2023 5:44 AM RAIL WASHER Marcus Gamboa MD LAB BLOOD ORDERABLE S Final Result Performing Organization Address City/State/[facility] Co de Phone Number [facility] Department [place] [address] * eGFR (07/05/2023 9:14 PM RAIL WASHER) [facility] eGFR 67 >=60 mL/min/1. 73 m2 [facility] Comment: Interpretive Data Reference Interval Normal [...] last reviewed 2021. Blood 07/05/2023 9:14 PM RAIL WASHER 07/05/2023 10:22 PM RAIL WASHER Marcus Gamboa MD LAB BLOOD ORDERABLE S Final Result Performing Organization Address [facility] Co de Phone Number [facility] Department [place] [address] * Lactate (07/05/2023 9:14 PM RAIL WASHER) Lactate 0.7 0.7 - 2.0 mmol/L [facility] Blood 07/05/2023 9:14 PM RAIL WASHER 07/05/2023 10:22 PM RAIL WASHER Marcus Gamboa MD LAB BLOOD ORDERABLE S Final Result Performing Organization Address [facility] de Phone Number [facility] Department [place] [address] * (ABNORMAL) Basic metabolic panel (07/05/2023 9:14 PM RAIL WASHER) Sodium 140 135 - 145 mmol/L [facility] Potassium, pl 3.6 3.3 - 4.9 mmol/L [facility] Chloride 104 97 - 110 mmol/L [facility] CO2 25 22 - 32 mmol/L [facility] Anion gap 11 2 - 15 mmol/L [facility] BUN 17 6 - 25 mg/dL [facility] Creatinine 1.43(H) 0.80 - 1.30 mg/dL [facility] Glucose 102 70 - 199 mg/dL [facility] Comment: [...] 2022. Calcium 8.7 8.5 - 10.3 mg/dL [facility] Blood 07/05/2023 9:14 PM RAIL WASHER 07/05/2023 10:22 PM RAIL WASHER Marcus Gabmoa MD LAB BLOOD ORDERABLE S Final Result [facility] Department [place] [address] * (ABNORMAL) CBC without differential (07/05/2023 9:14 PM RAIL WASHER) [facility] WBC 19.6(H) 3.8 - 9.9 K/cumm [facility] Hgb 7.8(L) 13.0 - 17.5 g/dL [facility] Hct 24.9(L) 38.9 - 50.3 % [facility] Plt 351 150 - 400 K/cumm [facility] MPV 9.7 9.1 - 12.3 fL [facility] RBC 2.85(L) 4.30 - 5.80 M/cumm [facility] MCV 87.4 81.3 - 96.4 fL [facility] MCH 27.4 27.1 - 33.3 pg [facility] MCHC 31.3(L) 32.3 - 35.7 g/dL [facility] RDW CV 13.9 11.1 - 14.9 % [facility] RDW SD 44.2 35.7 - 48.1 fL [facility] NRBC abs 0.00 0.00 - 0.01 K/cumm [facility] Blood 07/05/2023 9:14 PM RAIL WASHER 07/05/2023 10:22 PM RAIL WASHER Marcus Gamboa MD LAB BLOOD ORDERABLE S Final Result [facility] [place] [address] * XR Chest 1 View (07/05/2023 1:44 PM RAIL WASHER) Anatomical Region Laterality Modality Body, Chest N/A Computed Radiogr aphy 07/05/2023 3:06 PM RAIL WASHER Impressions 07/05/2023 3:34 PM RAIL WASHER Comparison 07/04/2023 Thoracic aortic and left subclavian [...] James Alvarado M.D. Narrative 07/05/2023 3:34 PM RAIL WASHER EXAMINATION: 1 view chest radiograph Procedure Note [...] it. Electronically signed by: James Alvarado M.D. Gisele Courtney NP IMG XR PROCEDURES Final Result * XR Abdomen Ap 1 Vw (07/05/2023 1:44 PM RAIL WASHER) Anatomical Region Laterality Modality Body, Abdomen N/A Computed Radiogr aphy 07/05/2023 2:51 PM RAIL WASHER Impressions 07/05/2023 2:54 PM RAIL WASHER A single view of the abdomen is [...] Otoniel Mccain M.D. Narrative 07/05/2023 2:54 PM RAIL WASHER EXAMINATION: Abdomen, one view. HISTORY: 33-year-old male [...] it. Electronically signed by: Otoniel Mccain M.D. Marcus Gamboa MD IMG XR PROCEDURES F inal Result * Blood culture Blood (07/05/2023 1:09 PM RAIL WASHER) Report Final Report: No growth JAIRON ERWIN Blood 07/05/2023 1:09 PM RAIL WASHER 07/05/2023 2:17 PM RAIL WASHER Yulisa COLON - 07/09/2023 4:00 PM RAIL WASHER From a different site than #1. Collection->Peripheral [...] organism identification may be performed using the [employer]igene Gram-Positive Blood Culture Assay. This assay detects microbial DNA in positive blood culture broth via hybridization of target DNA to capture oligonucleotides on a microarray. This assay has been cleared by the [place] Food and Drug Administration and its performance characteristics have been verified by the [facility]. 5. ?For questions about this culture, contact the Microbiology Laboratory at [phone]. Interpretive data was last revised on 2019. us Gisele Courtney NP LAB MICROBIOLOGY - GENERAL ORD ERABLES Final Result JAIRON ERWIN [facility] [place] [address] * Blood culture Blood (07/05/2023 1:09 PM RAIL WASHER) Report Final Report: No growth JIARON [facility] Blood 07/05/2023 1:09 PM RAIL WASHER 07/05/2023 2:17 PM RAIL WASHER Narrative [facility] - 07/09/2023 4:00 PM RAIL WASHER Collection->Peripheral 1. ?Blood cultures are incubated for [...] organism identification may be performed using the [employer]igene Gram-Positive Blood Culture Assay. This assay detects microbial DNA in positive blood culture broth via hybridization of target DNA to capture oligonucleotides on a microarray. This assay has been cleared by the [place] Food and Drug Administration and its performance characteristics have been verified by the [facility]. 5. ?For questions about this culture, contact the Microbiology Laboratory at [phone]. Interpretive data was last revised on 2019. Gisele Courtney NP LAB MICROBIOLOGY - GENERAL ORD ERABLES Final Result [facility] [place] [address] * Lactate (07/05/2023 1:09 PM RAIL WASHER) [facility] Lactate 1.7 0.7 - 2.0 mmol/L [facility] Blood 07/05/2023 1:09 PM RAIL WASHER 07/05/2023 1:48 PM RAIL WASHER Gisele M. Roz PAINTER DECORATOR LAB BLOOD ORDERABLES Final Res ult Performing Organization Address [facility] de Phone Number [facility] Department [place] [address] * (ABNORMAL) CBC without differential (07/05/2023 1:09 PM RAIL WASHER) WBC 15.3(H) 3.8 - 9.9 K/cumm [facility] Hgb 9.0(L) 13.0 - 17.5 g/dL [facility] Hct 28.1(L) 38.9 - 50.3 % [facility] Plt 359 150 - 400 K/cumm [facility] MPV 9.4 9.1 - 12.3 fL [facility] RBC 3.21(L) 4.30 - 5.80 M/cumm [facility] MCV 87.5 81.3 - 96.4 fL [facility] MCH 28.0 27.1 - 33.3 pg [facility] MCHC 32.0(L) 32.3 - 35.7 g/dL [facility] RDW CV 13.5 11.1 - 14.9 % [facility] RDW SD 43.2 35.7 - 48.1 fL [facility] NRBC abs 0.00 0.00 - 0.01 K/cumm [facility] Blood 07/05/2023 1:09 PM RAIL WASHER 07/05/2023 1:48 PM RAIL WASHER Gisele Courtney PAINTER DECORATOR LAB BLOOD ORDERABLES Final Res ult Performing Organization Address [facility] Co de Phone Number [facility] Department [place] [address] * Urine culture Urine, clean voided (07/05/2023 1:09 PM RAIL WASHER) Report Final Report: No growth [facility] Urine, clean voided 07/05/2023 1:09 PM RAIL WASHER 07/05/2023 2:10 PM RAIL WASHER Narrative [facility] - 07/06/2023 4:05 PM RAIL WASHER Indications for Culture:->Urology patient Testing performed by [facility] ([phone]) us Gisele Courtney PAINTER DECORATOR LAB MICROBIOLOGY - GENERAL ORD ERABLES Final Result Performing Organization Address [facility] Co de Phone Number [facility] Department [place] [address] * [place] Fluoroscopy < 1 Hour (07/04/2023 8:16 PM RAIL WASHER) Narrative [facility] - 07/04/2023 8:17 PM RAIL WASHER The images from this study are not interpreted by Radiology. ??Please refer to the physician's procedure / OR operative note. us Nagi Landa MD IMG FLUOROSCOPY PROCED URES Final Result Performing Organization Address [facility] Co de Phone Number [facility] * Surgical pathology (07/04/2023 7:34 PM RAIL WASHER) Tissue (Calculus/calculi /stone, gross and Chemical Analysis) 07/04/2023 7:34 PM RAIL WASHER Narrative PATHOLOGY [facility] - 07/06/2023 12:25 PM RAIL WASHER EPIC results best viewed via link to PDF [facility] Karolina Thao [facility] [place] [address] Note to Patients: This report may contain [...] Gender: ??M : ??1990 (Age: 33) Address: ??[address] [place] [address] [place] ??[address] Hospital #: ??[id number] Taken:07/04/2023 Received:07/05/2023 Reported: 07/06/2023 Patient Type: [facility] Inpatient ?? Service: Urology Location: [place] [address] Physician(s): ??MD Carl Multani M.D. Diagnosis: Left [...] 0.7 x 0.3 cm aggregate of irregular [id number] calculi/fragments admixed with scant hemorrhagic material. ??The calculi are submitted for chemical analysis. ??Jar 1 (hemorrhagic material). ? PA(s): Kam Chang MS, PA ([facility])CM By this signature, I attest that the [...] Surgical Pathology and Flow Cytometry Departments at [facility] as part of an ongoing chief quality officer program and in compliance with federally mandated [...] Surgical Pathology and Flow Cytometry Departments of [facility]. ??It has not been cleared or approved by the U. S. Food and Drug Administration. IMAGES AND SCANNED DOCUMENTS, IF INCLUDED, ONLY VIEWABLE IN PDF VERSION OF REPORT Marcus Gamboa MD LAB PATHOLOGY ORDER CAROLINE Final Result PATHOLOGY [facility] 3rd Floor [place], [place] [phone] * Troponin I high-sensitivity 2-hour (07/04/2023 2:19 PM RAIL WASHER) Trop I hs <4 <=35 ng/L JAIRON [facility] Comment: Interpretive Data For further hscTnI resources including the diagnostic algorithm and an aid in interpretation, copy and paste this link: https://bjhlab.testcatalog.org/show/hsTrop-1 Current Interpretive Data last revised 2019. Trop I hs delta 0 ng/L [facility] Trop I hs interp Insignificant [facility] Blood 07/04/2023 2:19 PM RAIL WASHER 07/04/2023 2:40 PM RAIL WASHER Guille Navarro MD LAB BLOOD ORDERABLES Fin al Result [facility] Department [place] [address] * CTA Chest Abdomen Pelvis (07/04/2023 2:06 PM RAIL WASHER) Anatomical Region Laterality Modality Body N/A Computed Tomogra phy 07/04/2023 2:48 PM RAIL WASHER Addenda Addendum by Katy Llamas MD on 07/05/2023 9:15 AM RAIL WASHER Addendum: Aortic measurements to add to findings: Maximum descending thoracic aorta: 52 x 47 mm, previously 49 x 45 mm Dictated by: Nigel Dooley M.D. The radiology attending physician has personally reviewed this study, and had reviewed and/or edited this written report and agrees with it. Electronically signed by: Katy Llamas M.D. Impressions 07/04/2023 2:55 PM RAIL WASHER 1. Redemonstrated thoracoabdominal aortic dissection managed with [...] 07/04/2023 at 2:46 PM Dictated by: Nigel Baireddy Dooley, M.D. The radiology attending physician has personally reviewed this study, and had reviewed and/or edited this written report and agrees with it. Electronically signed by: Katy Llamas M.D. Narrative 07/04/2023 2:55 PM RAIL WASHER EXAMINATION: ??CT ANGIOGRAPHY OF THE CHEST, ABDOMEN [...] it. Electronically signed by: Katy Llamas M.D. Jonathan Borja MD IMG CT PROCED URES Edited Result - Final * (ABNORMAL) Urinalysis, microscopic only (07/04/2023 1:08 PM RAIL WASHER) WBC, ur 0-5 0 - 5 /HPF [facility] RBC, ur >50(A) 0 - 2 /HPF [facility] Epithelial cells, squamous, ur 1-5 0 - 5 /HPF [facility] Bacteria, ur 1+(A) [facility] Mucous, ur Present(A) [facility] Urine 07/04/2023 1:08 PM RAIL WASHER 07/04/2023 1:14 PM RAIL WASHER Nagi Landa MD LAB URINE ORDERABLES F inal Result [facility] Department [place] [address] * (ABNORMAL) Urinalysis reflex to microscopic (07/04/2023 1:08 PM RAIL WASHER) Color, ur Tessa Yellow [facility] Clarity, ur Cloudy(A) Clear [facility] Specific gravity, ur 1.020 1.003 - 1.030 [facility] pH, urine 5.5 [facility] Comment: Interpretive Data ? Urine pH is affected by diet, medications, systemic acid-base disturbances, and renal tubular function. ??pH may affect urinary stone formation. ??For example, urine pH below 6.0 may help reduce the tendency for calcium phosphate stones and pH greater than 6.0 may reduce the tendency for uric acid stone formation. Source: Fraser Fleep Current Interpretive Data was last revised on 2017 Protein, ur ql 1+(A) Negative [facility] Glucose, ur ql Negative Negative [facility] Ketones, ur Negative Negative [facility] Bilirubin, ur Negative Negative [facility] Blood, ur 3+(A) Negative [facility] Urobilinogen, ur <2.0 <2.0 mg/dL [facility] Nitrite, ur Negative Negative [facility] Leukocyte esterase, ur Negative Negative [facility] UA reflex comment Reflex to microscopic UA will be performed. [facility] Urine 07/04/2023 1:08 PM RAIL WASHER 07/04/2023 1:14 PM RAIL WASHER us Nagi Landa MD LAB URINE ORDERABLES F inal Result [facility] Department [place] [address] * XR Chest 1 Vw Portable (07/04/2023 12:46 PM RAIL WASHER) Anatomical Region Laterality Modality Body, Chest N/A Computed Radiogr aphy 07/04/2023 12:5 1 PM RAIL WASHER Impressions 07/04/2023 12:51 PM RAIL WASHER Comparison 06/16/2023 Thoracic endovascular stent grafting redemonstrated No new focal consolidation, pneumothorax, or pleural effusion. Stable cardiomediastinal silhouette. Electronically signed by: Shahrzad Zimmerman M.D. Narrative 07/04/2023 12:51 PM RAIL WASHER EXAMINATION: 1 view chest radiograph Procedure Note Shahrzad Zimmerman MD - 07/04/2023 EXAMINATION: 1 view chest radiograph IMPRESSION: Comparison 06/16/2023 Thoracic endovascular stent grafting redemonstrated No new focal consolidation, pneumothorax, or pleural effusion. Stable cardiomediastinal silhouette. Electronically signed by: Shahrzad Zimmerman M.D. us Jonathan Borja MD IMG XR PROCED URES Final Result * Creatine kinase (CK), total (07/04/2023 12:23 PM RAIL WASHER) CK 55 40 - 300 Units/L [facility] Blood 07/04/2023 12:2 3 PM RAIL WASHER 07/04/2023 12:36 PM RAIL WASHER us Nagi Landa MD LAB BLOOD ORDERABLES F inal Result Performing Organization Address [facility] Co de Phone Number [facility] Department [place] [address] * eGFR (07/04/2023 12:23 PM RAIL WASHER) eGFR 73 >=60 mL/min/1. 73 m2 [facility] Comment: Interpretive Data Reference Interval Normal [...] reviewed 2021. Blood 07/04/2023 12:2 3 PM RAIL WASHER 07/04/2023 12:36 PM RAIL WASHER Guille Navarro MD LAB BLOOD ORDERABLES Fin al Result Performing Organization Address City/[facility] Co de Phone Number JAIRON ERWIN [facility] Department [place] [address] * (ABNORMAL) Differential, auto (07/04/2023 12:23 PM RAIL WASHER) Neutrophil abs 8.5(H) 1.5 - 6.5 K/cumm [facility] Imm gran abs 0.1 0.0 - 0.1 K/cumm [facility] Lymphocyte abs 1.2 0.8 - 3.3 K/cumm [facility] Monocyte abs 1.0(H) 0.2 - 0.8 K/cumm [facility] Eosinophil abs 0.1 0.0 - 0.5 K/cumm [facility] Basophil abs 0.1 0.0 - 0.1 K/cumm [facility] Neutrophil pct 78.0 % [facility] Comment: Interpretive Data Percent cell count reference ranges are not reported, since discordance with absolute values may lead to misinterpretation of CBC data. Current Interpretive Data was last revised on 2017. Imm gran pct 0.9 % [facility] Comment: Interpretive Data Percent cell count reference ranges are not reported, since discordance with absolute values may lead to misinterpretation of CBC data. Current Interpretive Data was last revised on 2017. Lymphocyte pct 10.9 % [facility] Comment: Interpretive Data Percent cell count reference ranges are not reported, since discordance with absolute values may lead to misinterpretation of CBC data. Current Interpretive Data was last revised on 2017. Monocyte pct 8.7 % [facility] Comment: Interpretive Data Percent cell count reference ranges are not reported, since discordance with absolute values may lead to misinterpretation of CBC data. Current Interpretive Data was last revised on 2017. Eosinophil pct 0.9 % [facility] Comment: Interpretive Data Percent cell count reference ranges are not reported, since discordance with absolute values may lead to misinterpretation of CBC data. Current Interpretive Data was last revised on 2017. Basophil pct 0.6 % [facility] Comment: Interpretive Data Percent cell count reference ranges are not reported, since discordance with absolute values may lead to misinterpretation of CBC data. Current Interpretive Data was last revised on 2017. Blood 07/04/2023 12:2 3 PM RAIL WASHER 07/04/2023 12:36 PM RAIL WASHER Guille Navarro MD LAB BLOOD ORDERABLES Fin al Result Performing Organization Address [facility] de Phone Number [facility] [place] [address] * Lactate (07/04/2023 12:23 PM RAIL WASHER) Lactate 0.8 0.7 - 2.0 mmol/L [facility] Blood 07/04/2023 12:2 3 PM RAIL WASHER 07/04/2023 12:36 PM RAIL WASHER Result [facility] Jonathan Borja MD LAB BLOOD ORD ERABLES Final Result Performing Organization Address [facility] [place] [address] * Troponin I high-sensitivity series (baseline, 2hr, 4hr, 6hr) (07/04/2023 12:23 PM RAIL WASHER) Trop I hs <4 <=35 ng/L [facility] Comment: Interpretive Data For further [facility] resources including the diagnostic algorithm and an aid in interpretation, copy and paste this link: https://bjhlab.testcatalog.org/show/hsTrop-[email or web address] Current Interpretive Data last revised 2019. Blood 07/04/2023 12:2 3 PM RAIL WASHER 07/04/2023 12:36 PM RAIL WASHER Result [facility] Nagi Landa MD LAB BLOOD ORDERABLES F inal Result Performing Organization Address [facility] Co de Phone Number [facility] [employer] [place] [address] * Lipase (07/04/2023 12:23 PM RAIL WASHER) Lipase 13 10 - 99 Units/L [facility] Blood (Blood, Venous) 07/04/2023 12:23 PM RAIL WASHER 07/04/2023 12:36 PM RAIL WASHER Nagi Landa MD LAB BLOOD ORDERABLES F inal Result [facility] Department [place] [address] * (ABNORMAL) Comprehensive metabolic panel (07/04/2023 12:23 PM RAIL WASHER) Pathologist [facility] Sodium 137 135 - 145 mmol/L [facility] Potassium, pl 4.2 3.3 - 4.9 mmol/L [facility] Chloride 101 97 - 110 mmol/L [facility] CO2 23 22 - 32 mmol/L [facility] Anion gap 13 2 - 15 mmol/L [facility] BUN 18 6 - 25 mg/dL [facility] Creatinine 1.33(H) 0.80 - 1.30 mg/dL [facility] Glucose [...] 2022. Calcium 10.1 8.5 - 10.3 mg/dL [facility] Bilirubin, total 0.3 0.1 - 1.2 mg/dL [facility] Protein, pl 9.8(H) 6.5 - 8.5 g/dL [facility] Albumin 4.1 3.5 - 5.0 g/dL [facility] Alk phos 105 40 - 130 Units/L [facility] ALT 13 7 - 55 Units/L [facility] AST 13 10 - 50 Units/L [facility] Blood 07/04/2023 12:2 3 PM RAIL WASHER 07/04/2023 12:36 PM RAIL WASHER Nagi Landa MD LAB BLOOD ORDERABLES F inal Result Performing Organization Address [facility] Co de Phone Number [facility] Department [place] [address] * (ABNORMAL) CBC with auto differential (07/04/2023 12:23 PM RAIL WASHER) [facility] WBC 10.9(H) 3.8 - 9.9 K/cumm [facility] Hgb 9.7(L) 13.0 - 17.5 g/dL [facility] Hct 31.1(L) 38.9 - 50.3 % [facility] Plt 437(H) 150 - 400 K/cumm [facility] MPV 9.2 9.1 - 12.3 fL [facility] RBC 3.52(L) 4.30 - 5.80 M/cumm [facility] MCV 88.4 81.3 - 96.4 fL [facility] MCH 27.6 27.1 - 33.3 pg [facility] MCHC 31.2(L) 32.3 - 35.7 g/dL [facility] RDW CV 13.7 11.1 - 14.9 % [facility] RDW SD 44.0 35.7 - 48.1 fL [facility] NRBC abs 0.00 0.00 - 0.01 K/cumm [facility] Blood (Blood, Venous) 07/04/2023 12:23 PM RAIL WASHER 07/04/2023 12:36 PM RAIL WASHER Nagi Landa MD LAB BLOOD ORDERABLES F inal Result Performing Organization Address [facility]/ZIP Co de Phone Number [facility] [place] [address] * ECG 12-LEAD (07/04/2023 11:53 AM RAIL WASHER) Narrative [facility] - 07/04/2023 11:53 AM RAIL WASHER Rosey Posada MD ? 07/04/2023 11:55 AM [...] in the ED Rosey Posada MD 07/04/23 [id number] us Nagi Landa MD ECG ORDERABLES Final Result [facility] documented in this encounter Visit Diagnoses Diagnosis Ureteral stone- Primary Calculus of ureter Left flank pain Abdominal pain, unspecified site Ureteral stone Calculus of ureter Left flank pain Abdominal pain, unspecified site documented in this encounter Admitting Diagnoses Diagnosis Ureteral stone Calculus of ureter Left flank pain Abdominal pain, unspecified site documented in this encounter Administered Medications Inactive Administered Medications - up to 3 most recent administrations Medication Order MAR Action Action Date Dose Rate Site acetaminophen (TYLENOL) tablet 1,000 mg 1,000 mg, oral, Every 6 hours PRN, 1st line for pain, Starting on Tue07/04/23 at 2147, Indications: PainIndications:Pain Given 07/05/2023 2:10 PM RAIL WASHER 1,000 mg Given 07/05/2023 4:11 AM RAIL WASHER 1,000 mg Given 07/04/2023 11:47 PM RAIL WASHER 1,000 mg acetaminophen (TYLENOL) tablet 1,000 mg 1,000 mg, oral, Every 6 hours scheduled, First dose (after last modification) on Tue07/05/23 at 1800, Indications: PainIndications:Pain Given 07/08/2023 12:12 PM RAIL WASHER 1,000 mg Given 07/08/2023 5:38 AM RAIL WASHER 1,000 mg Given 07/08/2023 12:10 AM RAIL WASHER 1,000 mg albuterol HFA (PROVENTIL HFA,VENTOLIN HFA,PROAIR HFA) 90 mcg/actuation inhaler 2 puff 2 puff, inhalation, Every 4 hours PRN (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 [employer]), wheezing, Starting on Tue07/04/23 at 2150 amLODIPine (NORVASC) tablet 10 mg 10 mg, oral, Daily, First dose on Tue07/05/23 at 0900 Given 07/08/2023 8:20 AM RAIL WASHER 10 mg Given 07/07/2023 8:47 AM RAIL WASHER 10 mg Given 07/06/2023 8:37 AM RAIL WASHER 10 mg aspirin chewable tablet 81 mg 81 mg, oral, Daily, First dose on Tue07/05/23 at 0900 Given 07/08/2023 8:20 AM RAIL WASHER 81 mg Given 07/07/2023 8:46 AM RAIL WASHER 81 mg Given 07/06/2023 8:38 AM RAIL WASHER 81 mg calcium carbonate (TUMS) chewable tablet 500 mg 500 mg (200 mg of elemental calcium), oral, 3 times daily PRN, indigestion, heartburn, Starting on Tue07/05/23 at 0558 carvediloL (COREG) tablet 25 mg 25 mg, oral, 2 times daily with meals (bkfst, dinner), First dose on Tue07/05/23 at 0800 Given 07/08/2023 8:19 AM RAIL WASHER 25 mg Given 07/07/2023 5:20 PM RAIL WASHER 25 mg Given 07/07/2023 8:46 AM RAIL WASHER 25 mg cefepime (MAXIPIME) 1,000 mg/10 mL in sterile water (premix) 1,000 mg 1,000 mg, intravenous, at 120 mL/hr, Administer over 5 Minutes, Every 12 hours scheduled, First dose on Tue07/05/23 at 1315, Indications: Urinary Tract/Genitourinary InfectionIndications:Urinary Tract/Genitourinary Infection New Bag 07/08/2023 12:11 PM RAIL WASHER 1,000 mg 120 mL/hr New Bag 07/08/2023 12:10 AM RAIL WASHER 1,000 mg 120 mL/hr New Bag 07/07/2023 12:46 PM RAIL WASHER 1,000 mg 120 mL/hr diazePAM (VALIUM) injection 2.5 mg 2.5 mg, intravenous, Administer over 1 Minutes, Once PRN Procedure, anxiety, Starting on Tue07/06/23 at 0705, For 1 dose Given 07/06/2023 7:16 AM RAIL WASHER 2.5 mg enoxaparin (LOVENOX) syringe 40 mg 40 mg, subcutaneous, Daily (for enoxaparin), First dose on Tue07/05/23 at 2100, Indications: Deep Vein Thrombosis PreventionIndications:Deep Vein Thrombosis Prevention Given 07/07/2023 9:20 PM RAIL WASHER 40 mg Left Lower Abdomen Given 07/06/2023 8:15 PM RAIL WASHER 40 mg Le ft Upper Arm Given 07/05/2023 9:26 PM RAIL WASHER 40 mg Le ft Lower Abdomen fentaNYL (SUBLIMAZE) preservative free injection 100 mcg 100 mcg, intravenous, Once, On Tue07/04/23 at 1213, For 1 dose Given 07/04/2023 12:17 PM RAIL WASHER 100 mcg Right Antecubital gabapentin (NEURONTIN) capsule 300 mg 300 mg, oral, 3 times daily, First dose on Tue07/04/23 at 2230 Given 07/08/2023 8:19 AM RAIL WASHER 300 mg Given 07/07/2023 9:23 PM RAIL WASHER 300 mg Given 07/07/2023 5:13 PM RAIL WASHER 300 mg hydrALAZINE (APRESOLINE) tablet 50 mg 50 mg, oral, 3 times daily, First dose on Tue07/04/23 at 2300, Indications: hypertensionIndications:hypertension Given 07/08/2023 8:37 AM RAIL WASHER 50 mg Given 07/07/2023 9:24 PM RAIL WASHER 50 mg Given 07/07/2023 5:19 PM RAIL WASHER 50 mg HYDROmorphone (DILAUDID) injection 0.2 mg 0.2 mg, intravenous, Administer over 2 Minutes, Once, On Tue07/05/23 at 0700, For 1 dose Given 07/05/2023 6:24 AM RAIL WASHER 0.2 mg HYDROmorphone (DILAUDID) injection 0.2 mg 0.2 mg, intravenous, Administer over 2 Minutes, Every 4 hours PRN, 2nd line for pain, Starting on Tue07/06/23 at 0647 Given 07/06/2023 7:02 AM RAIL WASHER 0.2 mg HYDROmorphone (DILAUDID) injection 0.5 mg 0.5 mg, intravenous, Administer over 2 Minutes, Every 10 min PRN, 1st line for pain, Starting on Tue07/04/23 at 2026, Phase I, Notify Anesthesiologist if total PACU dose reaches 2 mg and pain score 5/10 or more., Indications: PainIndications:Pain Given 07/04/2023 9:17 PM RAIL WASHER 0.5 mg Given 07/04/2023 8:54 PM RAIL WASHER 0.5 mg Given 07/04/2023 8:42 PM RAIL WASHER 0.5 mg HYDROmorphone (DILAUDID) injection 0.5 mg 0.5 mg, intravenous, Administer over 2 Minutes, Every 2 hours PRN, 2nd line for pain, breakthrough pain, Starting on Tue07/06/23 at 0715 Given 07/08/2023 8:19 AM RAIL WASHER 0.5 mg Given 07/08/2023 4:14 AM RAIL WASHER 0.5 mg Given 07/07/2023 9:17 PM RAIL WASHER 0.5 mg HYDROmorphone (DILAUDID) injection 1 mg 1 mg, intravenous, Administer over 2 Minutes, Every 2 hours PRN, 1st line for pain, Starting on Tue07/04/23 at 1214 Given 07/04/2023 3:32 PM RAIL WASHER 1 mg Right Antecubital Given 07/04/2023 1:04 PM RAIL WASHER 1 mg Ri ght Antecubital HYDROmorphone (DILAUDID) injection 1 mg 1 mg, intravenous, Administer over 2 Minutes, Once, On Tue07/04/23 at 1915, For 1 dose, Pre-Op Given 07/04/2023 6:54 PM RAIL WASHER 1 mg hyoscyamine (LEVSIN) injection 0.25 mg 0.25 mg, intravenous, Administer over 1 Minutes, Every 6 hours PRN, bladder spasms, Starting on Tue07/06/23 at 1125 Given 07/07/2023 10:10 AM RAIL WASHER 0.25 mg hyoscyamine (LEVSIN) injection 0.25 mg 0.25 mg, intravenous, Administer over 1 Minutes, Every 6 hours scheduled, First dose (after last modification) on Catarina 07/07/23 at 1800 Given 07/08/2023 5:39 AM RAIL WASHER 0.25 mg Given 07/08/2023 12:10 AM RAIL WASHER 0.25 mg Given 07/07/2023 5:13 PM RAIL WASHER 0.25 mg hyoscyamine (LEVSIN) sublingual tablet 125 mcg 125 mcg, sublingual, Every 6 hours, First dose on Tue07/08/23 at 1130, Indications: Urinary IncontinenceIndications:Urinary Incontinence Given 07/08/2023 12:34 PM RAIL WASHER 125 mcg ioversoL (OPTIRAY 350) injection 100 mL 100 mL, intravenous, Once in imaging, contrast, Starting on Tue07/06/23 at 0738, For 1 dose Contrast Given 07/06/2023 7:44 AM RAIL WASHER 75 mL ioversoL (OPTIRAY 350) syringe 100 mL 100 mL, intravenous, Once in imaging, contrast, Starting on Tue07/04/23 at 1407, For 1 dose Contrast Given 07/04/2023 2:07 PM RAIL WASHER 90 mL ketorolac (TORADOL) 15 mg/mL injection 15 mg 15 mg, intravenous, Every 6 hours scheduled, First dose on Catarina 07/07/23 at 1200, For 6 doses Given 07/08/2023 12:11 PM RAIL WASHER 15 mg Given 07/08/2023 5:39 AM RAIL WASHER 15 mg Given 07/08/2023 12:10 AM RAIL WASHER 15 mg Lactated Ringer's (LR) infusion 125 mL/hr, intravenous, Continuous, Starting on Tue07/04/23 at 2100, Phase I & Post-op Floor New Bag 07/08/2023 5:39 AM RAIL WASHER 125 mL/hr 125 mL/hr New Bag 07/07/2023 9:18 PM RAIL WASHER 125 mL/hr 125 mL/hr New Bag 07/07/2023 8:56 AM RAIL WASHER 125 mL/hr 125 mL/hr methocarbamoL (ROBAXIN) tablet 750 mg 750 mg, oral, 3 times daily PRN, muscle spasms, Starting on Tue07/04/23 at 2147 Given 07/07/2023 2:44 PM RAIL WASHER 750 m g Given 07/06/2023 8:38 AM RAIL WASHER 750 mg Given 07/06/2023 12:29 AM RAIL WASHER 750 mg methocarbamoL (ROBAXIN) tablet 750 mg 750 mg, oral, 3 times daily, First dose (after last modification) on Catarina 07/07/23 at 2100 Given 07/08/2023 8:20 AM RAIL WASHER 750 mg Given 07/07/2023 9:20 PM RAIL WASHER 750 mg ondansetron (ZOFRAN) injection 4 mg 4 mg, intravenous, Administer over 2 Minutes, Once, On Tue07/04/23 at 1213, For 1 dose Given 07/04/2023 12:20 PM RAIL WASHER 4 mg Right Antecubital ondansetron (ZOFRAN) injection 4 mg 4 mg, intravenous, Administer over 2 Minutes, Every 6 hours PRN, nausea, vomiting, Starting on Tue07/05/23 at 0558 Given 07/05/2023 6:03 AM RAIL WASHER 4 mg ondansetron (ZOFRAN) injection 4 mg 4 mg, intravenous, Administer over 2 Minutes, Every 6 hours PRN, nausea, vomiting, 1 st line, Starting on Tue07/05/23 at 0954 Given 07/07/2023 10:18 AM RAIL WASHER 4 mg Given 07/07/2023 3:28 AM RAIL WASHER 4 mg Given 07/06/2023 8:30 PM RAIL WASHER 4 mg oxyBUTYnin (DITROPAN) tablet 5 mg 5 mg, oral, Every 6 hours PRN, bladder spasms, Starting on Tue07/04/23 at 2147, Indications: Bladder HyperactivityIndications:Bladder Hyperactivity Given 07/06/2023 8:37 AM RAIL WASHER 5 mg Given 07/05/2023 6:25 AM RAIL WASHER 5 mg Given 07/04/2023 11:47 PM RAIL WASHER 5 mg oxyBUTYnin XL (DITROPAN-XL) extended release tablet 10 mg 10 mg, oral, Daily, First dose on Tue07/06/23 at 1200, Do not crush, chew, cut, dissolve, open or otherwise manipulate tablet/capsule. Given 07/08/2023 8:20 AM RAIL WASHER 10 mg Given 07/07/2023 8:47 AM RAIL WASHER 10 mg Given 07/06/2023 12:06 PM RAIL WASHER 10 mg oxyCODONE (ROXICODONE) tablet 5 mg 5 mg, oral, Every 4 hours PRN, 2nd line for pain, Starting on Tue07/04/23 at 2147, May administer 1 hour after 1st line agent for uncontrolled or increasing pain. , Indications: PainIndications:Pain Given 07/06/2023 2:54 AM RAIL WASHER 5 mg Given 07/05/2023 10:47 PM RAIL WASHER 5 mg Given 07/05/2023 6:44 PM RAIL WASHER 5 mg oxyCODONE (ROXICODONE) tablet 5 mg 5 mg, oral, Every 4 hours PRN, 1st line for pain, Starting on Tue07/06/23 at 0648, May administer 1 hour after 1st line agent for uncontrolled or increasing pain. , Indications: PainIndications:Pain Given 07/08/2023 2:36 PM RAIL WASHER 5 mg Given 07/08/2023 9:59 AM RAIL WASHER 5 mg Given 07/07/2023 4:51 PM RAIL WASHER 5 mg phenazopyridine (PYRIDIUM) tablet 200 mg 200 mg, oral, 3 times daily with meals, First dose on Tue07/05/23 at 1200, May discolor urine and sclera. Can stain undergarments and contact lenses. Given 07/08/2023 12:12 PM RAIL WASHER 200 mg Given 07/08/2023 8:20 AM RAIL WASHER 200 mg Given 07/07/2023 5:13 PM RAIL WASHER 200 mg potassium chloride ER (KLOR-CON) extended release tablet 30 mEq 30 mEq, oral, Every 4 hours, First dose on Tue07/07/23 at 0300, For 2 doses, Total dose = 60 mEq Tablets should not be crushed, chewed, dissolved, or otherwise manipulated. Capsules may be opened and sprinkled on a spoonful of applesauce or pudding, but the contents of the capsule should not be crushed or chewed. Given 07/07/2023 8:47 AM RAIL WASHER 30 mEq Given 07/07/2023 2:45 AM RAIL WASHER 30 mEq prochlorperazine (COMPAZINE) injection 5 mg 5 mg, intravenous, Administer over 2 Minutes, Once, On Tue07/05/23 at 1015, For 1 dose Given 07/05/2023 9:50 AM RAIL WASHER 5 mg prochlorperazine (COMPAZINE) injection 5 mg 5 mg, intravenous, Administer over 2 Minutes, Every 6 hours PRN, nausea, vomiting, 2nd line, Starting on Tue07/05/23 at 0955 Given 07/07/2023 6:34 AM RAIL WASHER 5 mg Given 07/07/2023 12:40 AM RAIL WASHER 5 mg Given 07/06/2023 8:37 AM RAIL WASHER 5 mg ramelteon (ROZEREM) tablet 8 mg 8 mg, oral, Nightly PRN, sleep, Starting on Tue07/05/23 at 0558, Indications: Sleep-Onset InsomniaIndications:Sleep-Onset Insomnia Given 07/07/2023 9:24 PM RAIL WASHER 8 m g senna-docusate (PERICOLACE) 8.6-50 mg per tablet 2 tablet 2 tablet, oral, 2 times daily, First dose on Tue07/04/23 at 2230 Given 07/08/2023 8:19 AM RAIL WASHER 2 tablets Given 07/07/2023 9:20 PM RAIL WASHER 2 tablets Given 07/07/2023 8:45 AM RAIL WASHER 2 tablets simethicone (MYLICON) chewable tablet 80 mg 80 mg, oral, 2 times daily PRN, flatulence, other, gas pain, Starting on Tue07/05/23 at 0558 Given 07/06/2023 8:37 AM RAIL WASHER 80 mg sodium chloride 0.9% 0.9% infusion - ADS Override Pull Starting on Tue07/04/23 at 1846, For 1 dose, Created by cabinet override sodium chloride 0.9% flush 0.5-20 mL 0.5-20 mL, intra-catheter, Every 8 hours scheduled, First dose on Tue07/04/23 at 2230, Flush volume based on line type and size. Given 07/08/2023 12:12 PM RAIL WASHER 1 0 mL Given 07/08/2023 5:39 AM RAIL WASHER 10 mL Given 07/07/2023 12:47 PM RAIL WASHER 10 mL sodium chloride 0.9% flush 0.5-20 mL 0.5-20 mL, intra-catheter, As needed, line care, Starting on Tue07/04/23 at 2147, Flush volume based on line type and size. Flush before and after each use. Given 07/07/2023 3:28 AM RAIL WASHER 10 mL Given 07/06/2023 10:38 AM RAIL WASHER 10 mL sodium chloride 0.9% infusion 30 mL/hr, intravenous, Continuous, Starting on Tue07/04/23 at 1915, Pre-Op Restarted 07/04/2023 8:01 PM RAIL WASHER Rate/Dose Verify 07/04/2023 7:08 PM RAIL WASHER 30 mL/h r New Bag 07/04/2023 6:54 PM RAIL WASHER 30 mL/hr 30 mL/hr tamsulosin (FLOMAX) extended release capsule 0.4 mg 0.4 mg, oral, Once, On Tue07/04/23 at 1458, For 1 dose, Do not crush, chew, cut, dissolve, open or otherwise manipulate tablet/capsule. Given 07/04/2023 3:35 PM RAIL WASHER 0.4 mg tamsulosin (FLOMAX) extended release capsule 0.4 mg 0.4 mg, oral, Daily with dinner, First dose on Tue07/05/23 at 1800, Do not crush, chew, cut, dissolve, open or otherwise manipulate tablet/capsule. Given 07/07/2023 5:12 PM RAIL WASHER 0.4 mg Given 07/06/2023 5:51 PM RAIL WASHER 0.4 mg Given 07/05/2023 6:44 PM RAIL WASHER 0.4 mg vancomycin 1500 mg/515 mL in sodium chloride 0.9% (premix) 1,500 mg 1,500 mg (rounded from 1,462.5 mg = 15 mg/kg ? 97.5 kg), intravenous, Administer over 90 Minutes, Every 12 hours, First dose on Tue07/05/23 at 1400, Indications: Urinary Tract/Genitourinary InfectionIndications:Urinary Tract/Genitourinary Infection New Bag 07/08/2023 2:11 AM RAIL WASHER 1,500 mg New Bag 07/07/2023 2:39 PM RAIL WASHER 1,500 mg New Bag 07/07/2023 2:45 AM RAIL WASHER 1,500 mg documented in this encounter Discontinued [...] Recently Administered Medications Times are shown in RAIL WASHER. Scheduled Medication Order 07/06/2023 07/07/2023 07/08/2023 acetaminophen [...] Alicia Good RN)1712 (Given - Provider: Alicia Good, BRIA) 0010 (Given - Provider: Navin Ventura RN)0538 (Given - Provider: Navin Ventura, BRIA)1212 (Given - Provider: Mariposa Harris RN) amLODIPine [...] Tue07/05/23 at 0800 0837 (Given - Provider: Sury Franklin RN)1751 (Given [...] 2230 0838 (Given - Provider: Sury Franklin RN)2033 (Not Given - Provider: Harriett Ordonez - [...] Franklin RN) 1712 (Given - Provider: Alicia Good, BRIA) vancomycin 1500 mg/515 mL in sodium chloride [...] Ventura RN)1400 (Due - Provider: Paris Garcia [facility]) Continuous Medication Order 07/06/2023 07/07/2023 07/08/2023 Lactated [...] 2 puff, inhalation, Every 4 hours 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 (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 [employer]), wheezing, Starting on Tue07/04/23 at 2150 calcium [...] Jacque Maciel RN)0836 (Given - Provider: Alicia Good, BRIA)1246 (Given - Provider: Alicia Good, BRIA)1444 (Given - Provider: Alicia Good, BRIA)1849 (Given - Provider: Alicia Good RN)2117 (Given - Provider: Navin Ventura, RN) 0414 (Given - Provider: Idalia Travis, BRIA)0819 (Given - Provider: Mariposa Harris, BRIA) hyoscyamine (LEVSIN) injection 0.25 mg (CANCELED) 0.25 mg, intravenous, Administer over 1 Minutes, Every 6 hours PRN, bladder spasms, Starting on Tue07/06/23 at 1125 1010 (Given - Provider: Alicia Good, BRIA) ioversoL (OPTIRAY 350) injection 100 mL (COMPLETED) [...] Franklin RN) 1444 (Given - Provider: Alicia Good RN) ondansetron (ZOFRAN) injection 4 mg 4 mg, intravenous, Administer over 2 Minutes, Every 6 hours PRN, nausea, vomiting, 1 st line, Starting on Tue07/05/23 at 0954 0708 (Due)2030 (Given - Provider: Harriett Ordonez) 0328 (Given - Provider: Jacque Maceil, BRIA)1018 (Given - Provider: Alicia Good, BRIA) oxyBUTYnin (DITROPAN) tablet 5 mg (CANCELED) 5 [...] Franklin RN)1601 (Given - Provider: Sury Franklin RN)2014 (Given - Provider: Harriett Ordonez) 0025 (Given - Provider: Harriett Ordonez)0639 (Given - Provider: Harriett Ordonez)1135 (Given - Provider: Alicia Good RN)1651 (Given - Provider: Patricia Liao RN) 0959 (Given - Provider: Mariposa Harris RN)1436 (Given - Provider: Mariposa Harris RN) prochlorperazine (COMPAZINE) injection 5 mg 5 mg, intravenous, Administer over 2 Minutes, Every 6 hours PRN, nausea, vomiting, 2nd line, Starting on Tue07/05/23 at 0955 0308 (Given - Provider: Harriett Ordonez)0837 (Given - Provider: Sury Franklin RN)203 (Not Given - Provider: Harriett Ordonez - Reason: Other - Comment: given compazine) 0040 (Given - Provider: Harriett Ordonez)0634 (Given - Provider: Harriett Ordonez) ramelteon (ROZEREM) tablet 8 mg 8 mg, oral, Nightly PRN, sleep, Starting on Tue07/05/23 at 0558, Indications: Sleep-Onset Insomnia 2123 (Given - Provider: Navin Ventura RN) simethicone (MYLICON) chewable tablet 80 mg 80 [...] Count Last Ordered Date First Ordered Date calcium carbonate (TUMS) august wable tablet 500 mg 1 07/05/2023 albuterol HFA (PROVENTIL HFA ,VENTOLIN HFA,PROAIR HFA) 90 mcg/actuation inhaler 2 puff 2 07/04/2023 Carrier Fluids for Secondary Infusion - 0.9% Sodium Chloride 1 07/04/2023 diphenhydrAMINE (BENADRYL) 5 0 mg/mL injection 12.5 mg 1 07/04/2023 haloperidol (HALDOL) injection 1 mg 1 07/04 HYDROmorphone (DILAUDID) injection 0.5 mg 1 07/04/2023 ketorolac (TORADOL) 15 mg/mL injection 15 mg 1 07/04/2023 ondansetron (ZOFRAN) injection 4 mg 1 07/04 ondansetron ODT (ZOFRAN-ODT) disintegrating tablet 4 mg 1 07/04/2023 sodium chloride 0.9% irrigation 1 Lab Orders Without Results Count Last Ordered [...] 07/04/2023 documented in this encounter Care Teams Vice President Biostatistics Relationship Specialty Start Date End Date Carl Strickland MD [address] [facility] [address] [place] [address] PCP - General Internal Medicine 06/06/23 Leo Manzano MD [id number] [place] [address] Surgeon Vascular Surgery 05/16/23 documented as of this encounter
--- OUTSIDE RECORDS SUMMARY | 2024-05-30 05:38 | XMS_ITS | Encounter Summary ---
Author Organization [facility] Address [address] [place] [address] Phone Care Team Providers Care Leather Tooler Name Role Phone Leo Manzano MD Unavailable Carl Strickland MD Primary Care Provider Reason for Visit * Reason Onset Date Comments Genetic testing/F/U appt 06/14/2023 Encounter Details Date Type Department Care Team (Late st Contact Info) Description 06/14/2023 Telephone [facility] Cardiology [address] [facility] [place] [address] [place] [address] Joaquín Abarca MD [address] [place] [address] Genetic testing/F/U appt Social History Tobacco Use Types Packs/Day Years Used Date Smoking Tobacco: Never Smokeless Tobacco: Never Alcohol Use Standard Drinks/Week Comments Not Currently 0 (1 standard drink = 0.6 oz pur e alcohol) [facility] Utilities Answer Date Recorded In [...] in a nursing home (including now)? No 06/15/2023 Personal Safety Answer Date Recorded Getting School Help Needed Denies 05/09 Sex and Gender Information Value Date Recorded Sex Assigned at Not on file Legal Sex Male 3:42 AM [employer] Gender Identity Not on file Sexual Orientation Straight 06/12/2023 11 :43 PM [employer] documented as of this encounter Miscellaneous Notes * Telephone Encounter - Mariah Case RN - 06/27/2023 11:09 AM CST Pt discharged 06/25/2023. I spoke with pt. I reminded pt of f/u appt with Dr. Abarca on 07/20/2023. I reviewed genetic testing process with him and he states understanding. I requested that pt call office if costs are prohibitive, or if elects to NOT have testing. Pt states he uses [employer], and [employer] send portal outlining genetic testing and contact numbers. Pt in agreement. Pt was enroute somewhere and did not have ability to write info. Orders sent. FAST FOOD FAST FOOD * Telephone Encounter - Idalia Macario RN - 06/20/2023 8:14 AM [employer] Still in house will check next week FAST FOOD * Telephone Encounter - Mariah Case RN - 06/16/2023 10:11 AM CST Pt still inpt. FAST FOOD * Telephone Encounter - Mariah Case RN - 06/14/2023 4:59 PM CST Orders pending. Pt still inpt. Will need 4 week f/u appt. FAST FOOD * Telephone Encounter - Mariah Case RN - 06/14/2023 4:52 PM CST ----- Message from Joaquín Abarca MD sent at 06/11/2023 7:51 AM [employer] [employer] ----- The patient will need follow-up in about 4 weeks. Patient will need genetic testing as an outpatient evaluate thoracic aortic aneurysms genes. [employer] documented in this encounter Plan of Treatment Not on file documented as of this encounter Visit Diagnoses Not on filedocumented in this encounter Care Teams Leather Tooler Relationship Specialty Start Date End Date Carl Strickland MD [address] [facility] [address] [place] [address] PCP - General Internal Medicine 06/06/23 Leo Manzano MD [id number] [place] [address] Surgeon Vascular Surgery 05/16/23 documented as of this encounter
--- OUTSIDE RECORDS SUMMARY | 2024-05-30 05:38 | XMS_ITS | Encounter Summary ---
Author Organization [facility] Healthcare Address [address] [place] [address] Care Team Providers Care Salesperson Shoes Name Role Phone Unknown, Notinfile Primary Care Provider Unavail able Leo Manzano MD Unavailable [phone] Reason for Visit * Auth/Cert (Routine) Specialty Diagnoses / Procedures Referred By Contac t Referred To Contact Diagnoses Dissection of abdominal aorta (CMS/HCC) (HCC) Procedures NA Referral ID Status Reason Start Date Expiration Date Visits Re quested Visits Authorized [id number] 1 1 Encounter Details Date Type Department Care Team (Late st Contact Info) Description 06/05/2023 9:28 AM PHYSICAL SCIENCE TECHNICIAN Anesthesia Event [facility] Operating Room [address] [place] [address] Ney Alex MD [address] [facility] [address] MSC [id number] [place] [address] Gonzalez Benitez MD [address] [place] [address] Anesthesia Record Procedure Summary Procedure Name Responsible Anesthesiologist Anesthesia Start Time Anesthesia Stop Time Thoracic Endovascular Repair - Aortic (Chest) Ney Alex MD 06/05/23 0928 06/05/23 1328 Events Date Time Event Comment 06/05/2023 0926 In Room 0928 An Start 0928 An Start Data 0946 an francis now 1006 An Induction The patient was reevaluated immediately before moderate or deep sedation use and before anesthesia induction. 1010 An Intubation 1032 Anesthesia Ready 1037 1104 Proc Start 1104 Incision Start 1246 Proc Fin 1257 An Extubation 1306 an stop data 1315 Out of Room 1327 Handoff to RN I completed my handoff [...] the time of handoff: No value filed. 1328 An Stop Meds Name Total midazolam PF 2 mg lidocaine (cardiac) syringe 2 % 60 mg propofol 230 mg fentaNYL 200 mcg succinylcholine 80 mg rocuronium 50 mg phenylephrine 100 mcg/mL 4.6 mg ePHEDrine 17.5 mg clevidipine (CLEVIPREX) 50 mg/100 mL (0. 5 mg/mL) (premix) 10.13 mg esmolol in 0.9% sodium chlor radha (BREVIBLOC) 2,500 mg/250 mL (10 mg/mL) infusion (premix) 177.35 mL ceFAZolin 2,000 mg heparin 1,000 unit/ml 12,000 Units protamine 70 mg ondansetron (ZOFRAN) injection 4 mg 4 mg calcium chloride 0.5 g sugammadex 200 mg Lactated Ringer's (LR) infusion 1,400 mL * Agents Name O2% N2O O2 N2O Air Sevoflurane Inspired Sevoflurane * Blood Name Total PRBC - CROSSMATCHED 250 mL Lines, Drains, and Airways Type Details Placement Removal Peripheral IV Placement Date: 06/03/23; Placement Time: 183; Catheter Size: 20 G; Orientation: Left; Location: Antecubital; Site Prep: Chlorhexidine; Technique: Anatomical landmarks; Insertion Attempts: 1; Removal Date: 06/06/23; Removal Time: 1029; Removal Reason: Per patient/family request 06/03/23 1836 by Angelica Stone RN 06/06/23 1029 by Jessica Gambino RN Peripheral IV Placement Date: 06/04/23; Placement Time: 0046; Catheter Size: 20 G; Orientation: Anterior, Right; Location: Hand; Site Prep: Alcohol; Technique: Anatomical landmarks; Inserted by: BRIA Turcios; Insertion Attempts: 1; Patient Tolerance: Tolerated well; Removal Date: 06/06/23; Removal Time: 1730; Removal Reason: Occluded 06/04/23 0046 by Karolina Henao RN 06/06/23 1730 by Jessica Gambino RN Arterial Line Placement Date: 06/04/23; Placemnt Time: 0115; Orientation: Right; Location: Radial; Site Prep: Alcohol; Technique: Anatomical landmarks; Insertion Attempts: 2; Securement: Sutured; Sutures Placed: 1; Patient Tolerance: Tolerated well; Removal Date: 06/08/23; Removal Time: 0538; Removal Reason: Per order 06/04/23 0115 by Karolina Henao RN 06/08/23 0538 by Nisha Jane RN Urethral Catheter Placement Date: 06/04/23; Placement Time: 1130; Inserted by: Angie; Type: Temperature probe; Balloon Size: 10 mL; Urine Returned: Yes; Removal Date: 06/07/23; Removal Time: 1256; Removal Reason: Per order 06/04/23 1130 by Pooja Cameron RN 06/07/23 1256 by Jessica Gambino RN Peripheral IV Placement Date: 06/04/23; Placement Time: 2009; Catheter Size: 20 G; Orientation: Left, Posterior; Location: Hand; Site Prep: Chlorhexidine; Inserted by: eugene; Insertion Attempts: 1; Removal Date: 06/11/23 06/04/232009 by Eugene Barcenas RN 06/11/23 by Riat Braden RN ETT Placement Date: 06/05/23; Placement Time: 1045 (created via procedure documentation); Mask Ventilation: 0; Technique: Video laryngoscopy; Type: ETT - single; Single Lumen Tube Size: 8 mm; Cuffed: Yes; Laryngoscope: Casey; Blade Size: 4; Location: Oral; Insertion Attempts: 1; Placement Verification: Auscultation, Capnometry; Removal Date: 06/05/23; Removal Time: 1257 06/05/23 1045 by Marietta Su MD 06/05/23 1257 by Marietta Su MD Lumbar Drain Placement Date: 06/05/23; Placement Time: 1138 (created via procedure documentation); Removal Date: 06/07/23; Removal Time: 1430; Removal Reason: Per order 06/05/23 1138 by Elder Guerrero MD 06/07/23 1430 by Jessica Gambino, BRIA Rapid Infusion Catheter Placement Date: 06/05/23; Placement Time: 1139 (created via procedure documentation); Removal Date: 06/06/23; Removal Time: 1030; Removal Reason: Per patient/family request 06/05/23 1139 by Elder Guerrero MD 06/06/23 1030 by Jessica Gambino, BRIA RETIRED Surgical Site 06/05/23; 1207; Le ft; Groin; punctured wound; 09/08/23; 1055 06/05/23 1207 by Tim Napoles RN 09/08/23 1055 by Dayami Olivarez RN documented in this encounter Social History Tobacco Use Types Packs/Day Years Used Date Smoking Tobacco: Never Smokeless Tobacco: Never Personal Safety Answer Date Recorded Getting School Help Needed Denies 05/09 Sex and Gender Information Value Date Recorded Sex Assigned at Not on file Legal Sex Male 3:42 AM PHYSICAL SCIENCE TECHNICIAN Gender Identity Not on file Sexual Orientation Straight 06/12/2023 11 :43 PM PHYSICAL SCIENCE TECHNICIAN documented as of this encounter OR Notes * Anesthesia Postprocedure Evaluation - Elder Guerrero MD - 06/05/2023 1:28 PM CST Patient: Eriberto Chau Procedure Summary Date: 06/05/23 Room / Location: [facility] OR POD 3 ROOM 314 / [facility] OR POD 3 Anesthesia Start: 927 Anesthesia Stop: 132 Procedure: Thoracic Endovascular Repair - Aortic (Chest) Diagnosis: Dissection of abdominal aorta (CMS/HCC) (HCC) (Dissection of abdominal aorta (CMS/HCC) (HCC) [I71.02]) Surgeons: Nikhil Samuel MD Responsible Provider: Ney Alex MD Anesthesia Type: general ASA Status: 4 - Emergent Anesthesia Type: general Last vitals BP 110/56 Pulse 79 Temp 36.6 ??C (97.8 ??F) Resp 11 SpO2 98% Anesthesia Post Evaluation Patient location during evaluation: ICU Patient participation: complete - patient participated Level of consciousness: fully awake Pain management: adequate Airway patency: adequate Cardiovascular status: acceptable and hemodynamically stable Respiratory status: acceptable and face mask Hydration status: acceptable Comments: Patient arrives to 56ICU hemodynamically stable on supplemental oxygen. Critical hookups complete, handoff given, all questions answered. No notable events documented. Cosigned by Ney Alex MD at 06/05/2023 1:53 PM PHYSICAL SCIENCE TECHNICIAN ICAL SCIENCE TECHNICIAN ICAL SCIENCE TECHNICIAN * Anesthesia Procedure Notes - Elder Guerrero MD - 06/05/2023 11:38 AM CSTAssociated Order(s): Rapid Infusion Catheter Rapid Infusion Catheter Patient location: OR Staff: Supervising provider: Dalton Markham MD PhD Placed by: Resident: Elder Guerrero MD Preprocedure prep: Prep solution: chlorhexadine/alcohol PPE: provider hat/mask and sterile gloves KYRA line: Laterality: left Site: antecubital Catheter size: 7.5 fr Procedure details: peripheral IV started, peripheral IV prepped and draped, Seldinger technique used, wire removed intact, good blood return and occlusive dressing applied Number of attempts: 1 Assessment: Events: patient tolerated procedure well with no complications ICAL SCIENCE TECHNICIAN ICAL SCIENCE TECHNICIAN * Anesthesia Procedure Notes - Edler Guerrero MD - 06/05/2023 11:36 AM CSTAssociated Order(s): Spinal Drain Spinal Drain Patient Location: OR Reason for procedure: epidural CSF Staff: Supervising provider: Dalton Markham MD PhD Placed by: Resident: Elder Guerrero MD Procedure prep: Preprocedure checklist: patient identified, procedure contraindications assessed, site marked, procedure consent, surgical consent, IV checked, risks, benefits and alternatives discussed, monitors and equipment checked and timeout performed Patient position: sitting Procedure performed while patient: sedate with meaningful contact Monitoring: ECG, oximetry, blood pressure and capnography Supplemental oxygen: nasal cannula Prep solution: chlorhexidine/alcohol PPE: sterile gloves, provider hat/mask and sterile drape Skin infiltrated with lidocaine 1%: yes Spinal drain: Approach: midline Introducer used: yes Location: L4-5 Procedure details: good CSF flow from introducer needle, catheter threaded easily and good CSF return from placed catheter Number of attempts: 1 Spinal drain equipment: Spinal drain catheter: 20 G fenestrated spinal drain catheter Other equipment used: catheter introducer wire and spinal drain manometer Assessment: Events: patient tolerated procedure well with no complications ICAL SCIENCE TECHNICIAN * Anesthesia Procedure Notes - Marietta Su MD - 06/05/2023 10:43 AM PHYSICAL SCIENCE TECHNICIAN Associated Order(s): Airway Airway Patient location: OR Urgency: elective Indications for airway management: anesthesia Difficult airway: no Staff: Supervising provider: Ney Alex MD Placed by: Resident: Marietta Su MD Emergent airway documentation: Risks and benefits discussed: yes Consent obtained: yes Consent given by: patient Airway prep: Preoxygenated: yes Patient position: sniffing Mask difficulty assessment: 0 - not attempted Spontaneous ventilation during airway: absent Sedation level during airway: GA Final airway details: Final airway type: endotracheal airway Tube type: ETT ETT size: 8.0 mm Cuffed: yes Technique used for successful ETT placement: video laryngoscopy Devices/Methods used in placement: stylet Insertion site: oral Blade type: Casey Video blade type: Miller Blade size: 4 Cormack-Lehane (video): grade IIa - partial view of glottis ETT to lips: 24 cm Placement verified by: auscultation and CO2 detection Airway secured with: silk tape Number of attempts: 1 Planned trial extubation: yes ICAL SCIENCE TECHNICIAN * Anesthesia Preprocedure Evaluation - Ney Alex MD - 06/05/2023 10:37 AM CST Images from the original note were not included. Anesthesia Evaluation Eriberto Chau is a 33 y.o. 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 No pertinent past medical history. History reviewed. No pertinent surgical history. Allergies Allergen Reactions Amoxicillin Hives Taking? Last Dose Start Date End Date Provider acetaminophen 500 mg capsule -- 05/16/23 -- Meron Parekh NP Take 2 capsules (1,000 mg total) by mouth every 6 (six) hours as needed for pain albuterol HFA (PROVENTIL HFA,VENTOLIN HFA,PROAIR HFA) 90 mcg/actuation inhaler -- 05/16/23 -- Meron Parekh NP Inhale 2 puffs every 4 (four) hours as needed for wheezing aspirin 81 mg chewable tablet -- 05/17/23 05/16/24 Meron Parekh NP Take 1 tablet (81 mg total) by mouth daily carvediloL (COREG) 12.5 mg tablet -- 05/16/23 05/15/24 Meron Parekh NP Take 1 tablet (12.5 mg total) by mouth 2 (two) times a day gabapentin (NEURONTIN) 300 mg capsule -- 05/16/23 05/15/24 Meron Parekh NP Take 1 capsule (300 mg total) by mouth 3 (three) times a day lidocaine (ASPERCREME) 4 % adhesive patch,medicated -- 05/16/23 -- Meron Parekh NP Place 2 patches on the skin daily methocarbamoL (ROBAXIN) 750 mg tablet -- 05/16/23 -- Meron Parekh NP Take 1 tablet (750 mg total) by mouth 3 (three) times a day ondansetron ODT (ZOFRAN-ODT) 4 mg disintegrating tablet -- 05/16/23 -- Meron Parekh NP Take 1 tablet (4 mg total) by mouth every 8 (eight) hours as needed for nausea or vomiting oxyCODONE (ROXICODONE) 10 mg tablet -- 05/16/23 -- Pepe Gardner MD Take 1 tablet (10 mg total) by mouth every 4 (four) hours as needed for pain polyethylene glycol (MIRALAX) 17 gram/dose bulk powder -- 05/16/23 -- Meron Parekh NP Take 17 g by mouth daily as needed (constipation) QUEtiapine (SEROquel) 50 mg tablet -- 05/16/23 06/15/23 Meron Parekh NP Take 1 tablet (50 mg total) by mouth nightly senna-docusate (PERICOLACE) 8.6-50 mg -- 05/16/23 -- Meron Parekh NP Take 2 tablets by mouth 2 (two) times a day To prevent constipation tamsulosin (FLOMAX) 0.4 mg extended release capsule -- 05/17/23 -- Meron Parekh NP Take 1 capsule (0.4 mg total) by mouth daily Current Facility-Administered Medications: [JUL Hold] acetaminophen (TYLENOL) tablet 1,000 mg, 1,000 mg, oral, Q6H SUSAN, 1,000 mg at 06/05/23 0531 [JUL Hold] amLODIPine (NORVASC) tablet 10 mg, 10 mg, oral, Daily, 10 mg at 06/04/23 0243 [JUL Hold] Carrier Fluids for Secondary Infusion - 0.9% Sodium Chloride, 30 mL, intravenous, PRN [MAR Hold] Carrier Fluids for Secondary Infusion - 0.9% Sodium Chloride, 30 mL, intravenous, PRN [MAR Hold] carvediloL (COREG) tablet 50 mg, 50 mg, oral, BID with meals (bkfst, dinner), 50 mg at 06/04/23 172 clevidipine (CLEVIPREX) 50 mg/100 mL (0.5 mg/mL) (premix), 0-32 mg/hr, intravenous, Titrated, Last Rate: 16 mL/hr at 06/05/23 101, 8 mg/hr at 06/05/231010 [MAR Hold] docusate sodium (COLACE) capsule 100 mg, 100 mg, oral, BID, 100 mg at 06/04/232020 OR [MAR Hold] docusate (COLACE) 10 mg/mL oral liquid 100 mg, 100 mg, feeding tube, BID esmolol in 0.9% sodium chloride (BREVIBLOC) 2,500 mg/250 mL (10 mg/mL) infusion (premix), 0-300 mcg/kg/min, intravenous, Titrated, Last Rate: 179.6 mL/hr at 06/05/23927, Rate Verify at 06/05/23927 [Held by Provider] furosemide (LASIX) 200 mg in sodium chloride 0.9% 100 mL (2 mg/mL) infusion, 15 mg/hr, intravenous, Continuous, Stopped at 06/05/23 08 [MAR Hold] gabapentin (NEURONTIN) capsule 300 mg, 300 mg, oral, TID, 300 mg at 06/04/232020 HYDROmorphone in 0.9% sodium chloride (DILAUDID) 20 mg/100 mL (0.2 mg/mL) (premix), , intravenous, Continuous, Stopped (Dual Sign) at 06/05/23924 Lactated Ringer's (LR) infusion, 10 mL/hr, intravenous, Continuous, Last Rate: 10 mL/hr at , Rate Verify at 06/05/23927 [MAR Hold] methocarbamoL (ROBAXIN) tablet 750 mg, 750 mg, oral, TID, 750 mg at 06/04/232020 [MAR Hold] naloxone (NARCAN) 0.4 mg/mL injection 0.04-0.4 mg, 0.04-0.4 mg, intravenous, Q10 Min PRN [JUL Hold] ondansetron (ZOFRAN) injection 4 mg, 4 mg, intravenous, Q6H PRN, 4 mg at 06/04/23 0802 [JUL Hold] polyethylene glycol (MIRALAX) packet 17 g, 17 g, oral, Daily [JUL Hold] senna (SENOKOT) tablet 1 tablet, 1 tablet, oral, BID, 1 tablet at 06/04/232020 OR [JUL Hold] senna 1.76 mg/mL syrup 8.8 mg, 8.8 mg, feeding tube, BID [JUL Hold] sodium chloride 0.9% flush 0.5-20 mL, 0.5-20 mL, intra-catheter, Q8H SUSAN, 10 mL at 06/05/23 0605 [JUL Hold] sodium chloride 0.9% flush 0.5-20 mL, 0.5-20 mL, intra-catheter, PRN [JUL Hold] sodium chloride 0.9% IVPB 0-250 mL, 0-250 mL, intravenous, Once sodium chloride 0.9% solution, 3-12 mL/hr, intra-catheter, Continuous, Last Rate: 3 mL/hr at 06/05/23 0900, 3 mL/hr at 06/05/23 0900 [JUL Hold] tamsulosin (FLOMAX) extended release capsule 0.8 mg, 0.8 mg, oral, Daily with dinner, 0.8 mg at 06/04/23 1726 Facility-Administered Medications Ordered in Other Encounters: fentaNYL (SUBLIMAZE) preservative free injection, , intravenous, PRN, 100 mcg at 06/05/23 0953 midazolam (VERSED) 2 mg/2 mL preservative free injection, , intravenous, PRN, 2 mg at 06/05/23 0932 propofoL (DIPRIVAN) 10 mg/mL IV, , intravenous, PRN, 150 mg at 06/05/23 1006 rocuronium (ZEMURON) injection, , intravenous, PRN, 20 mg at 06/05/23 1006 Social History Tobacco Use Smoking Status Never Smokeless Tobacco Never Alcohol Use: Not on file Substance and Sexual Activity Drug Use Not on file History reviewed. No pertinent family history. Vitals: 06/05/23 0900 06/05/23 0915 06/05/23 0916 BP: 110/56 Pulse: 74 73 71 Resp: 18 10 20 Temp: 36.6 ??C (97.8 ??F) 36.6 ??C (97.8 ??F) SpO2: 96% 100% 98% PT: 06/04/2023: 15.6 sec (H) INR: 06/04/2023: 1.37 (H) APTT: 06/04/2023: 35 sec Hgb A1C: No results found for requested labs within last 30 days. CBC RBC: 06/05/2023: 2.64 M/cumm (L) RDW: No results found for requested labs within last 30 days. MCHC: 06/05/2023: 32.9 g/dL MCH: 06/05/2023: 29.5 pg MCV: 06/05/2023: 89.8 fL Hct: 06/05/2023: 23.7 % (L) Hgb: 06/05/2023: 7.8 g/dL (L) WBC: 06/05/2023: 8.8 K/cumm MPV: 06/05/2023: 8.9 fL (L) Platelets: 06/05/2023: 311 K/cumm RDW CV: 06/05/2023: 13.1 % RDW Sd: 06/05/2023: 42.8 fL BMP Glucose: 06/05/2023: 130 mg/dL Calcium: 06/05/2023: 8.4 mg/dL (L) Sodium: 06/05/2023: 140 mmol/L Potassium: 06/05/2023: 4.1 mmol/L CO2: 06/05/2023: 23 mmol/L Chloride: 06/05/2023: 104 mmol/L BUN: 06/05/2023: 17 mg/dL Creatinine: 06/05/2023: 1.78 mg/dL (H) DOS Physical Exam Medical history, medications, and allergies reviewed. Attestation: This PAT evaluation 06/05/2023. Airway Exam: Mallampati: III Cervical ROM: FROM TM distance: 3 Cardiovascular Exam: Rate: regular Rhythm: regular Pulmonary Exam: LCTA, bilat EENT Exam: trachea midline Current state: Patient's current state is cooperative. Lines/Drains/Tubes/Devices Lines in situ: A-line Anesthesia Plan ASA 4- emergent My patient is approved for the Anesthesia Controlled Medication protocol when under care of a PAYROLL ACCOUNTANT Planned anesthesia: General Team communication plan: oral ET tube Invasive Monitors Planned: Invasive monitors planned: spinal drain. Induction: Induction: intravenous. Postoperative Plan: Postoperative administration opioids intended. Patient's planned disposition post procedure is ICU. Informed Consent: Discussed plan with resident. Anesthesia plan and risks discussed with patient. Consent and Attending signature: I and/or my designee have discussed the anesthesia plan, benefits, possible alternatives, parental presence at time of induction (if indicated), and clinically relevant risks that may include dental injury, unintentional awareness, and/or other complications. The patient and/or parent/legal guardian understand, and agree to proceed. All questions answered. ICAL SCIENCE TECHNICIAN documented in this encounter Plan of Treatment Not on file documented as of this encounter Procedures Procedure Name Priority Date/Time Associated Diagnosis Comments ANESTHESIA BLOCK - RAPID INFUSION CATHETER (KYRA) Routine 06/05/2023 11:38 AM PHYSICAL SCIENCE TECHNICIAN BW AN SPINAL DRAIN Routine 06/05/2023 11 :36 AM PHYSICAL SCIENCE TECHNICIAN ANESTHESIA INTUBATION Routine 06/05/2023 10:43 AM PHYSICAL SCIENCE TECHNICIAN documented in this encounter Results * Rapid Infusion Catheter (06/05/2023 11:38 AM PHYSICAL SCIENCE TECHNICIAN) Narrative Elder Guerrero MD - 06/05/2023 11:38 AM PHYSICAL SCIENCE TECHNICIAN Elder Guerrero MD ? 06/05/2023 11:39 AM Rapid Infusion Catheter Patient location: OR Staff: Supervising provider: Dalton Markham MD PhD Placed by: Resident: Elder Guerrero MD Preprocedure prep: Prep solution: chlorhexadine/alcohol PPE: provider hat/mask and sterile gloves KYRA line: Laterality: left Site: antecubital Catheter size: 7.5 fr Procedure details: peripheral IV started, peripheral IV prepped and draped, Seldinger technique used, wire removed intact, good blood return and occlusive dressing applied Number of attempts: 1 Assessment: Events: patient tolerated procedure well with no complications Ney Alex MD ANESTHESIA ORDERABLES Edited Result - Final * Spinal Drain (06/05/2023 11:36 AM PHYSICAL SCIENCE TECHNICIAN) Narrative Elder Guerrero MD - 06/05/2023 11:36 AM PHYSICAL SCIENCE TECHNICIAN Elder Guerrero MD ? 06/05/2023 11:38 AM Spinal Drain Patient Location: ??OR Reason for procedure: epidural CSF Staff: Supervising provider: Dalton Markham MD PhD Placed by: Resident: Elder Guerrero MD Procedure prep: Preprocedure checklist: patient identified, procedure contraindications assessed, site marked, procedure consent, surgical consent, IV checked, risks, benefits and alternatives discussed, monitors and equipment checked and timeout performed Patient position: sitting Procedure performed while patient: sedate with meaningful contact Monitoring: ECG, oximetry, blood pressure and capnography Supplemental oxygen: nasal cannula Prep solution: chlorhexidine/alcohol PPE: sterile gloves, provider hat/mask and sterile drape Skin infiltrated with lidocaine 1%: yes Spinal drain: Approach: midline Introducer used: yes Location: L4-5 Procedure details: good CSF flow from introducer needle, catheter threaded easily and good CSF return from placed catheter Number of attempts: 1 Spinal drain equipment: Spinal drain catheter: 20 G fenestrated spinal drain catheter Other equipment used: catheter introducer wire and spinal drain manometer Assessment: Events: patient tolerated procedure well with no complications Ney Alex MD ANESTHESIA ORDERABLES Final Result * Airway (06/05/2023 10:43 AM PHYSICAL SCIENCE TECHNICIAN) Narrative Marietta Su MD - 06/05/2023 10:43 AM PHYSICAL SCIENCE TECHNICIAN Marietta Su MD ? 06/05/2023 10:45 AM Airway Patient location: OR Urgency: elective Indications for airway management: anesthesia Difficult airway: no Staff: Supervising provider: Ney Alex MD Placed by: Resident: Marietta Su MD Emergent airway documentation: Risks and benefits discussed: yes Consent obtained: yes Consent given by: patient Airway prep: Preoxygenated: yes Patient position: sniffing Mask difficulty assessment: 0 - not attempted Spontaneous ventilation during airway: absent Sedation level during airway: GA Final airway details: Final airway type: endotracheal airway Tube type: ETT ETT size: 8.0 mm Cuffed: yes Technique used for successful ETT placement: video laryngoscopy Devices/Methods used in placement: stylet Insertion site: oral Blade type: Casey Video blade type: Miller Blade size: 4 Cormack-Lehane (video): grade IIa - partial view of glottis ETT to lips: 24 cm Placement verified by: auscultation and CO2 detection Airway secured with: silk tape Number of attempts: 1 Planned trial extubation: yes Ney Alex MD ANESTHESIA ORDERABLES Final Result documented in this encounter Visit Diagnoses Not on filedocumented in this encounter Administered Medications Inactive Administered Medications - up to 3 most recent administrations Medication Order MAR Action Action Date Dose Rate Site calcium chloride IV syringe intravenous, As needed, Starting on 06/05/23 at 1221, Anesthesia Intra-op Given 06/05/2023 12:21 PM PHYSICAL SCIENCE TECHNICIAN 0.5 g ceFAZolin (ANCEF) injection intravenous, Administer over 3 Minutes, As needed, Starting on 06/05/23 at 1040, Anesthesia Intra-op Given 06/05/2023 10:40 AM PHYSICAL SCIENCE TECHNICIAN 2,000 mg clevidipine (CLEVIPREX) 50 mg/100 mL (0.5 mg/mL) (premix) 0-32 mg/hr (0-64 mL/hr), 0.5 mg/mL, intravenous, Titrated, Starting on 06/04/23 at 1430, Until 06/05/23 at 1337, Initial rate: 1 mg/hr, Titrate: Up/Down, Titrate by: 1 mg/hr, Every: 2 minutes, Goal: SBP, SBP Goal: Other (comment) / SBP<120, Vial only stable 12 hours after entry. Replace with new vial every 12 hours., Routine New Bag 06/05/2023 1:33 PM PHYSICAL SCIENCE TECHNICIAN 4 mg/hr 8 mL/h r Rate/Dose Change 06/05/2023 10:11 AM PHYSICAL SCIENCE TECHNICIAN 8 mg/hr 16 mL/ hr Rate/Dose Change 06/05/2023 9:41 AM PHYSICAL SCIENCE TECHNICIAN 16 mg/hr 32 mL/h r ePHEDrine injection intravenous, Administer over 5 Minutes, As needed, Starting on 06/05/23 at 1210, Anesthesia Intra-op Given 06/05/2023 12:46 PM PHYSICAL SCIENCE TECHNICIAN 2.5 mg Given 06/05/2023 12:23 PM PHYSICAL SCIENCE TECHNICIAN 5 mg Given 06/05/2023 12:10 PM PHYSICAL SCIENCE TECHNICIAN 10 mg esmolol in 0.9% sodium chloride (BREVIBLOC) 2,500 mg/250 mL (10 mg/mL) infusion (premix) 0-300 mcg/kg/min ? 99.8 kg (0-179.64 mL/hr), 10 mg/mL, intravenous, Titrated, Starting on 06/04/23 at 0045, Until 06/05/23 at 1333, Indications: hypertension, Initial rate: 50 mcg/kg/min, Titrate: Up, Down, Titrate UP by: 50 mcg/kg/min, Titrate UP every: 5 minutes, Titrate DOWN by: 25 mcg/kg/min, Titrate DOWN every: 30 minutes, Goal: HR, HR Goal: Other (comment) / <60, Discontinue when drip is off and stable at goal., RoutineIndications:hypertension Restarted 06/05/2023 1:06 PM PHYSICAL SCIENCE TECHNICIAN 100 mL/hr 100 mL/hr Rate/Dose Verify 06/05/2023 9:28 AM PHYSICAL SCIENCE TECHNICIAN 179.6 m L/hr Rate/Dose Verify 06/05/2023 9:00 AM PHYSICAL SCIENCE TECHNICIAN 300 mcg/kg/min 179 .6 mL/hr fentaNYL (SUBLIMAZE) preservative free injection intravenous, As needed, Starting on 06/05/23 at 0953, Anesthesia Intra-op Given 06/05/2023 1:14 PM PHYSICAL SCIENCE TECHNICIAN 50 mcg Given 06/05/2023 10:06 AM PHYSICAL SCIENCE TECHNICIAN 50 mcg Given 06/05/2023 9:33 AM PHYSICAL SCIENCE TECHNICIAN 50 mcg heparin 1,000 unit/mL injection intravenous, As needed, Starting on 06/05/23 at 1119, Anesthesia Intra-op Bolus 06/05/2023 11:34 AM PHYSICAL SCIENCE TECHNICIAN 2,000 U nits New Bag 06/05/2023 11:19 AM PHYSICAL SCIENCE TECHNICIAN 10,000 Units Lactated Ringer's (LR) infusion 10 mL/hr, intravenous, Continuous, Starting on 06/04/23 at 0045 Rate/Dose Verify 06/07/2023 9:00 AM PHYSICAL SCIENCE TECHNICIAN 10 mL/hr 10 mL/hr Restarted 06/07/2023 8:26 AM PHYSICAL SCIENCE TECHNICIAN 10 mL/hr 10 mL/hr Rate/Dose Verify 06/07/2023 6:00 AM PHYSICAL SCIENCE TECHNICIAN 10 mL/hr 10 mL/h r lidocaine (cardiac) (XYLOCAINE) preservative free injection intravenous, As needed, Starting on 06/05/23 at 1006, Anesthesia Intra-op, Indications: Ventricular ArrhythmiasIndications:Ventricular Arrhythmias Given 06/05/2023 10:06 AM PHYSICAL SCIENCE TECHNICIAN 60 mg midazolam (VERSED) 2 mg/2 mL preservative free injection intravenous, Administer over 2 Minutes, As needed, Starting on 06/05/23 at 0932, Anesthesia Intra-op Given 06/05/2023 9:32 AM PHYSICAL SCIENCE TECHNICIAN 2 mg ondansetron (ZOFRAN) injection 4 mg 4 mg, intravenous, Administer over 2 Minutes, Every 6 hours PRN, nausea, vomiting, Starting on 06/04/23 at 0005, Administer no sooner than 6 hours after last dose. Given 06/10/2023 6:17 PM PHYSICAL SCIENCE TECHNICIAN 4 mg Given 06/07/2023 9:11 AM PHYSICAL SCIENCE TECHNICIAN 4 mg Given 06/06/2023 5:17 PM PHYSICAL SCIENCE TECHNICIAN 4 mg phenylephrine (KARLI-SYNEPHRINE) 1 mg/10 mL (100 mcg/mL) in sodium chloride 0.9% (premix) intravenous, As needed, Starting on 06/05/23 at 1122, Anesthesia Intra-op Restarted 06/05/2023 12:44 PM PHYSICAL SCIENCE TECHNICIAN 0.6 mcg/kg/min 36.144 mL/hr Rate/Dose Change 06/05/2023 12:34 PM PHYSICAL SCIENCE TECHNICIAN 0.2 mcg/kg/min 12 .048 mL/hr Rate/Dose Change 06/05/2023 12:32 PM PHYSICAL SCIENCE TECHNICIAN 0.6 mcg/kg/min 36 .144 mL/hr propofoL (DIPRIVAN) 10 mg/mL IV intravenous, As needed, Starting on 06/05/23 at 1006, Anesthesia Intra-op Bolus 06/05/2023 12:53 PM PHYSICAL SCIENCE TECHNICIAN 40 mg Bolus 06/05/2023 12:49 PM PHYSICAL SCIENCE TECHNICIAN 40 mg New Bag 06/05/2023 10:06 AM PHYSICAL SCIENCE TECHNICIAN 150 mg protamine injection intravenous, As needed, Starting on 06/05/23 at 1216, Anesthesia Intra-op, Indications: Heparin ToxicityIndications:Heparin Toxicity Given 06/05/2023 12:36 PM PHYSICAL SCIENCE TECHNICIAN 20 mg Given 06/05/2023 12:22 PM PHYSICAL SCIENCE TECHNICIAN 20 mg Given 06/05/2023 12:17 PM PHYSICAL SCIENCE TECHNICIAN 20 mg rocuronium (ZEMURON) injection intravenous, As needed, Starting on 06/05/23 at 1006, Anesthesia Intra-op Given 06/05/2023 11:06 AM PHYSICAL SCIENCE TECHNICIAN 30 mg Given 06/05/2023 10:06 AM PHYSICAL SCIENCE TECHNICIAN 20 mg succinylcholine (ANECTINE) injection intravenous, As needed, Starting on 06/05/23 at 1006, Anesthesia Intra-op Given 06/05/2023 10:06 AM PHYSICAL SCIENCE TECHNICIAN 80 mg sugammadex (BRIDION) 100 mg/mL intravenous solution intravenous, As needed, Starting on 06/05/23 at 1249, Anesthesia Intra-op Given 06/05/2023 12:49 PM PHYSICAL SCIENCE TECHNICIAN 200 mg Transfuse RBC Routine New Bag 06/05/2023 11:36 AM PHYSICAL SCIENCE TECHNICIAN documented in this encounter Care Teams Salesperson Shoes Relationship Specialty Start Date End Date Unknown, Notinfile PCP - General 04/30/23 06/05/23 Leo Manzano MD [id number] [place] [address] Surgeon Vascular Surgery 05/16/23 documented as of this encounter
--- OUTSIDE RECORDS SUMMARY | 2024-05-30 05:38 | XMS_ITS | Encounter Summary ---
Author Organization [facility] Healthcare Address [address] [place] [address] Care Team Providers Care Printing Gray Cloth Tender Name Role Phone Unknown, Notinfile Primary Care Provider Unavail able Leo Manzano MD Unavailable [phone] Carl Strickland MD Primary Care Provider Reason for Visit * Reason Comments Post-op Problem * Auth/Cert (Routine) Specialty Diagnoses / Procedures Referred By Contac t Referred To Contact Diagnoses Dissection of abdominal aorta (CMS/HCC) (HCC) Procedures NA Referral ID Status Reason Start Date Expiration Date Visits Re quested Visits Authorized [id number] 1 1 Encounter Details Date Type Department Care Team (Latest Contact Info) Description 06/03/2023 6:25 PM CLOD PULLER - 06/11/2023 12:05 PM CLOD PULLER Hospital Encounter [facility] [address] [place] [id number] Tressa Sorensen MD [address] [place] [address] Alonzo Duncan MD [address] [facility] [place] [id number] [place] [address] Marcus Amaya MD [address] [place] [address] Nikhil Samuel MD [address] [place] [address] Dissection of abdominal aorta (CMS/HCC) (HCC) (Primary Dx); Abdominal pain determined by examination; HTN (hypertension), malignant; Dissection of thoracoabdominal aorta (CMS/HCC) (HCC) Discharge Disposition: Discharge to home or self care Social History Tobacco Use Types Packs/Day Years Used Date Smoking Tobacco: Never Smokeless Tobacco: Never [facility] Utilities Answer Date Recorded In the past 12 months has e electric, gas, oil, or water company threatened to shut off services in your home? No 06/08/2023 Social Connection and Isolat ion Panel [NHANES] Answer Date Recorded In a typical week, how many times do you talk on the phone with family, friends, or neighbors? More than three times a week 06/08/2023 How often do you get togethe r with friends or relatives? More than three times a week 06/08/2023 How often do you attend chur ch or confucianism services? More than 4 times per year 06/08/2023 Do you belong to any clubs o r organizations such as congregation groups, unions, fraternal or athletic groups, or school groups? No 06/08/2023 How often do you attend meet ings of the clubs or organizations you belong to? Never 06/08/2023 Are you , , di vorced, , never , or living with a partner? Never 06/08/2023 Overall Financial Resource Strain (CARDIA) Answe r Date Recorded How hard is it for you to pa y for the very basics like food, housing, medical care, and heating? Somewhat hard 06/08/2023 PHQ-2 Answer Date Recorded PHQ-2 Total Score (If total score is 3 or more points, staff should administer the PHQ-9) 2 06/08/2023 Hunger Vital Sign Answer Date Recorded Within the past 12 months, y ou worried that your food would run out before you got the money to buy more. Never true 06/08/19 24 Within the past 12 months, t he food you bought just didn't last and you didn't have money to get more. Never true 06/08/2023 PRAPARE - Transportation Answer Date Re corded In the past 12 months, has l ack of transportation kept you from medical appointments or from getting medications? No 05/30 In the past 12 months, has l ack of transportation kept you from meetings, work, or from getting things needed for daily living? No 06/08/2023 Housing Stability Vital Sign Answer Caden e Recorded In the last 12 months, was t here a time when you were not able to pay the mortgage or rent on time? No 06/08/2023 In the last 12 months, how many places have you lived? 1 06/08/2023 In the last 12 months, was t here a time when you did not have a steady place to sleep or slept in a retirement (including now)? No 06/08/2023 Personal Safety Answer Date Recorded Getting School Help Needed Denies 05/09 Sex and Gender Information Value Date Recorded Sex Assigned at Not on file Legal Sex Male 3:42 AM CLOD PULLER Gender Identity Not on file Sexual Orientation Straight 06/12/2023 11 :43 PM CLOD PULLER documented as of this encounter Last Filed Vital Signs Vital Sign Reading Time Taken Comments Blood Pressure 158/112 06/11/2023 8:21 AM CLOD PULLER Pulse 97 06/11/2023 8:21 AM CLOD PULLER Temperature 36.8 ??C (98.3 ??F) 06/11/2023 7:07 AM CS T Respiratory Rate 15 06/11/2023 8:21 AM CLOD PULLER Oxygen Saturation 96% 06/11/2023 8:21 AM CLOD PULLER Inhaled Oxygen Concentration - - Weight 100.7 kg (222 lb 0.1 oz) 06/11/2023 6:00 AM CLOD PULLER Height 175.3 cm (5' 9 ) 06/04/2023 1:05 AM CLOD PULLER Body Mass Index 32.78 06/04/2023 1:05 AM CLOD PULLER documented in this encounter Discharge Summaries * Shannon Bran NP - 06/09/2023 2:44 PM CST Inpatient Discharge Summary BRIEF OVERVIEW Admitting Provider: Nikhil Samuel MD Discharge Provider: Nikhil Samuel MD Primary Care Physician at Discharge: Carl Strickland MD [phone] Admission Date: 06/03/2023 Discharge Date: 06/11/2023 Admission Location: [facility] Problems/Diagnoses: Principal Problem: Dissection of abdominal aorta (CMS/HCC) (HCC) Active Problems: Dissection of thoracoabdominal aorta (CMS/HCC) (HCC) HTN (hypertension) Resolved Problems: No resolved hospital problems. DETAILS OF HOSPITAL STAY Presenting Problem/History of Present Illness: Eriberto Chau is a 33 y.o. male with PMHx of HTN, chronic abdominal pain, mood disorder, urinary retention who presents for persistent abdominal pain in the setting of hypertensive urgency. The patient reports that he's being having bilateral flank pain for the past 4 - 5 days. Today, he presented to the ED because the flank pain progressed to include his whole abdomen. He reports that his BP is constantly high at home, and he has not seen any correlation between the new onset abdominal pain and changes in BP. He reports that he last took his antihypertensives at 4pm. On arrival to the CTICU, he is alert and oriented with esmolol gtt at 250 and nicardipine gtt at 1.5 Hospital Course: Dissection of thoracoabdominal aorta Presents with abdominal pain and concern for progression of dissection on CT - 06/05: OR s/p TEVAR extension and dissection stent placement - BP management per HTN - postoperative course significant for pain control, physical and occupational therapy, diet advancement, return of bowel function, removal of indwelling catheter with spontaneous void, pulmonary toilet and oxygen therapy, resumption of home medications, and monitoring of vascular status; postoperative goals met and appropriate for discharge on 06/11. - He will f/u with Dr. Samuel in 4 weeks. - He will f/u with Dr. Abarca as outpatient for genetics testing. HTN (hypertension) Goal systolic BP above 140 for one month post-op for spinal cord perfusion. - Dr. Abarca followed for blood pressure management - Discharged on hydralazine 25 TID, amlodipine 5 qD, coreg 25 BID Active Issues Requiring Follow-up: Follow up with Dr. Samuel Follow up with Dr. Abarca Test Results Pending at Discharge: Pending Labs Order Current Status Basic metabolic panel In process Basic metabolic panel In process Lactate In process Magnesium In process Phosphorus In process Operative Procedures Performed: Procedure(s): Thoracic Endovascular Repair - Aortic Discharge Details Physical Exam at Discharge: Discharge Condition: good Pulse: 95 Resp: 21 BP: 150/73 Temp: 36.7 ??C (98.1 ??F) Weight: 96.5 kg (212 lb 11.9 oz) Pertinent Exam Findings at Discharge: Access sites soft, clean and dry, biphasic AT/PT bilaterally. Discharge Disposition: home Code Status at Discharge: FULL Discharge Medications: Current Medications TAKE these medications acetaminophen 500 mg capsule Take 2 capsules (1,000 mg total) by mouth every 6 (six) hours as needed for pain albuterol HFA 90 mcg/actuation inhaler Inhale 2 puffs every 4 (four) hours as needed for wheezing Commonly known as: PROVENTIL HFA,VENTOLIN HFA,PROAIR HFA aspirin 81 mg chewable tablet Take 1 tablet (81 mg total) by mouth daily carvediloL 12.5 mg tablet Take 1 tablet (12.5 mg total) by mouth 2 (two) times a day Commonly known as: COREG gabapentin 300 mg capsule Take 1 capsule (300 mg total) by mouth 3 (three) times a day Commonly known as: NEURONTIN lidocaine 4 % adhesive patch,medicated Place 2 patches on the skin daily Commonly known as: ASPERCREME methocarbamoL 750 mg tablet Take 1 tablet (750 mg total) by mouth 3 (three) times a day Commonly known as: ROBAXIN ondansetron ODT 4 mg disintegrating tablet Take 1 tablet (4 mg total) by mouth every 8 (eight) hours as needed for nausea or vomiting Commonly known as: ZOFRAN-ODT oxyCODONE 10 mg tablet Take 1 tablet (10 mg total) by mouth every 4 (four) hours as needed for pain For: pain Commonly known as: ROXICODONE polyethylene glycol 17 gram/dose bulk powder Take 17 g by mouth daily as needed (constipation) For: constipation Commonly known as: MIRALAX QUEtiapine 50 mg tablet Take 1 tablet (50 mg total) by mouth nightly Commonly known as: SEROquel senna-docusate 8.6-50 mg Take 2 tablets by mouth 2 (two) times a day To prevent constipation Commonly known as: PERICOLACE tamsulosin 0.4 mg extended release capsule Take 1 capsule (0.4 mg total) by mouth daily Commonly known as: FLOMAX Outpatient Follow-Up: Future Appointments Date Time Provider Department Center 06/21/2023 1:00 PM Lydia Barillas, [facility] 06/22/2023 1:30 PM [facility] [address] [facility] CT [facility] Main 06/22/2023 3:00 PM Leo Manzano MD [facility] [id number] Cosigned by Nikhil Samuel MD at 06/21/2023 11:39 AM CLOD PULLER PULLER PULLER documented in this encounter Medications at Time of Discharge aspirin 81 mg chewable tablet Take 1 tablet (81 mg total) by mouth daily 30 tablet 11 3 ondansetron ODT (ZOFRAN-ODT) 4 mg disintegrating tablet [...] for wheezing 1 each 3 07/20/19 24 amLODIPine (NORVASC) 5 mg tablet Take 1 tablet (5 mg total) by mouth daily 30 tablet 4 06/25/19 24 carvediloL (COREG) 25 mg tablet Take 1 tablet (25 mg total) by mouth 2 (two) times a day with meals 60 tablet 4 06/25/19 24 gabapentin (NEURONTIN) 300 mg capsule Take 1 capsule (300 mg total) by mouth 3 (three) times a day 90 capsule 11 3 06/25/19 24 hydrALAZINE (APRESOLINE) 25 mg tabletIndications:h ypertension Take 1 tablet (25 mg total) by mouth 3 (three) times a day 90 tablet 4 06/25/19 24 lidocaine (ASPERCREME) 4 % adhesive patch,medicated Place 2 patches on the skin daily 20 patch 3 06/25/19 24 methocarbamoL (ROBAXIN) 750 mg tablet Take 1 tablet (750 mg total) by mouth 3 (three) times a day 90 tablet 3 06/25/19 24 oxyCODONE (ROXICODONE) 10 mg tabletIndications:P ain Take 1 tablet (10 mg total) by mouth every 4 (four) hours as needed for pain 20 tablet 3 06/25/19 24 polyethylene glycol (MIRALAX) 17 gram/dose bulk powderIndications:c onstipation Take 17 g by mouth daily as needed (constipation) 3 06/25/19 24 QUEtiapine (SEROquel) 50 mg tablet Take 1 tablet (50 mg total) by mouth nightly 30 tablet 3 08/24/19 24 tamsulosin (FLOMAX) 0.4 mg extended release capsule Take 1 capsule (0.4 mg total) by mouth daily 30 capsule 3 06/25/19 24 documented as of this encounter Ordered Prescriptions Prescription Sig Dispense Quantity Refills Last Filled Start Date End Date hydrALAZINE (APRESOLINE) 25 mg tabletIndications: hypertension Take 1 tablet (25 mg total) by mouth 3 (three) times a day 90 tablet 06/11/2023 06/25/2023 amLODIPine (NORVASC) 5 mg tablet Take 1 tablet (5 mg total) by mouth daily 30 tablet 06/12/2023 06/25/2023 carvediloL (COREG) 25 mg tablet Take 1 tablet (25 mg total) by mouth 2 (two) times a day with meals 60 tablet 06/11/2023 06/25/2023 documented in this encounter Discharge Disposition Disposition Code Departure Means Destination Comment s Discharge to home or self care documented in this encounter Progress Notes * Joaquín Abarca MD - 06/11/2023 7:50 AM CST Cardiology Daily Progress Note Patient Name: Eriberto Chau Provider: Joaquín Abarca MD : 1990 Date of Service: 06/11/2023 CHIEF COMPLAINT: Hypertension SUBJECTIVE: Patient feels well. No chest pain or shortness of breath. Lower Back symptoms improved. Hydralazinewas weaned and discontinued but blood pressure elevated over the past 12 hours. I have reinstitutedhydralazine this morning. MEDICATIONS: acetaminophen, 1,000 mg, oral, Q6H SUSAN amLODIPine, 5 mg, oral, Daily aspirin, 81 mg, oral, Daily bisacodyL, 10 mg, rectal, Daily carvediloL, 25 mg, oral, BID with meals (bkfst, dinner) docusate sodium, 100 mg, oral, BID enoxaparin, 40 mg, subcutaneous, Daily-2100 gabapentin, 300 mg, oral, TID hydrALAZINE, 25 mg, oral, TID methocarbamoL, 750 mg, oral, TID polyethylene glycol, 17 g, oral, BID QUEtiapine, 50 mg, oral, Nightly senna, 1 tablet, oral, BID sodium chloride 0.9%, 0.5-20 mL, intra-catheter, Q8H SUSAN tamsulosin, 0.8 mg, oral, Daily with dinner REVIEW OF SYSTEMS: General: No fever, chills, malaise or fatigue Eyes: No alterations in visual acuity ENT: No alterations in auditory acuity, no sore throat Pulmonary: No dyspnea, cough or hemoptysis Cardiac: No chest pain, orthopnea, PND or palpitations GI: No nausea, vomiting, diarrhea or constipation Musculoskeletal: No myalgias or arthralgias Skin: no rashes Neuro: No headaches, parathesias or focal neurological complaints Endocrine: No cold or heat intolerance Heme: no excessive bleeding or bruising PHYSICAL EXAM: Vitals: 06/11/23 0314 06/11/23 0400 06/11/23 0600 06/11/23 0707 BP: (!) 154/109 (!) 161/109 BP Location: Left arm Patient Position: Lying Pulse: 95 91 Resp: 17 12 Temp: 37 ??C (98.6 ??F) 36.8 ??C (98.3 ??F) TempSrc: Oral Oral SpO2: 92% 95% Weight: 100.7 kg (222 lb 0.1 oz) Height: Intake/Output Summary (Last 24 hours) at 06/11/2023 0748 Last data filed at 06/11/2023 0600 Gross per 24 hour Intake 460 ml Output 1525 ml Net -1065 ml General: Well appearing, No pain or [...] awake/alert LAB/RADIOLOGY/DIAGNOSTIC REVIEW: Recent Labs Lab Units 06/11/23 0321 06/10/23 0524 06/08/23 2053 HEMOGLOBIN g/dL 10.2* 10.7* 9.6* HEMATOCRIT % 32.6* 32.8* 30.9* WBC K/cumm 8.7 9.5 10.9* PLATELETS K/cumm 334 333 232 Recent Labs Lab Units 06/11/23 0321 SODIUM mmol/L 143 POTASSIUM PLASMA mmol/L 3.8 CHLORIDE mmol/L 107 CO2 mmol/L 23 ANIONGAP mmol/L 13 GLUCOSE mg/dL 107 BUN SERUM mg/dL 12 CREATININE mg/dL 0.80 CALCIUM mg/dL 9.1 XR Chest 1 View Result Date: 06/10/2023 The current study is compared with the prior radiograph dated 06/09/2023. Patient is status post endoluminal aortic stent graft with a left subclavian stent as well , appearance is unchanged. The heart is mildly enlarged. There is no pneumothorax.. There is no mass or lymphadenopathy no pleural effusions Electronically signed by: Floridalma Oliva M.D. CTA Chest Abdomen Pelvis Result Date: 06/10/2023 Interval expected postoperative changes of inferior extension of the thoracic aorta endovascular stent graft and stent placement within the true lumen of the visceral abdominal aorta for management of type B aortic dissection. The true lumen is expanded in caliber compared to prior. There is retrograde opacification of the false lumen at the level of the distal descending thoracic aorta above thehiatus and through the level of the celiac artery due to fenestration in the visceral segment as described on completion aortogram. Dictated by: Corrie Motneiro M.D. The radiology attending physician has personally reviewed this study, and had reviewed and/or edited this written reportand agrees with it. Electronically signed by: Bassam Dykes M.D. XR Chest 1 View Result Date: 06/10/2023 Again noted is changes of thoracic and upper abdominal aortic stent graft. Left subclavian stent overlies chest. Mild left lower lobe atelectasis increased from prior radiograph. Low lung volumes. Nopleural effusion. No pneumothorax. Cardiac silhouette stable from prior radiograph. Dictated by: Delta Doss MD The radiology attending physician has personally reviewed this study, and had reviewed and/or edited this written report and agrees with it. Electronically signed by: James Alvarado M.D. Labs as reported above personally reviewed. Electrolytes stable. Creatinine stable. Potassium stable. Sodium stable. Assessment/Plan HTN (hypertension) Assessment & Plan Patient hypertensive. Recommend resuming hydralazine 25 mg 3 times a day. Continue the amlodipine and carvedilol. Follow-up blood pressure. The patient should have follow-up blood pressure when he leaves the hospital as well. Dissection of thoracoabdominal aorta (CMS/HCC) (HCC) Assessment & Plan Clinically stable. Renal function stable. Blood pressure improved We will recommend genetic testing as an outpatient PULLER * Bettie Wheeler NP - 06/10/2023 2:49 PM CST Vascular Surgery Daily Progress Patient Name/MRN: Eriberto Chau [id number] Treatment Team: Vascular Surgery- Pager: Attending: Nikhil Samuel MD Today's Date: 06/10/2023 Room/Bed: [id number] Admit Date: 06/03/2023 Code Status: Full Code Subjective Chief complaint: Abdominal pain Events During This Hospitalization: 06/04: Admitted to ICU for hypertensive urgency and bilat flank 4-[address] concerning for progression of thoracoabdominal dissection. 06/05: OR for TEVAR extension and dissection stent placement 06/09: BP below goal of systolic above 140. Decreased carvedilol. Events Over Last 24 Hours: No acute events overnight. Hypertensive this am. Coreg increased, hydralazine discontinued. Continue q 2 VS. Goal SBP > 140 x 1 month. Allergies Allergen Reactions Amoxicillin Hives Current Facility-Administered Medications Medication Dose Route Frequency Provider Last Rate Last Admin acetaminophen (TYLENOL) tablet 1,000 mg 1,000 mg oral Q6H [facility] Sreekanth Armstrong NP 1,000 mg at 06/10/23 1215 amLODIPine (NORVASC) tablet 5 mg 5 mg oral Daily Shannon Bran NP 5 mg at 06/10/23 0715 aspirin chewable tablet 81 mg 81 mg oral Daily Sreekanth Armstrong NP 81 mg at 06/10/23 0715 bisacodyL (DULCOLAX) suppository 10 mg 10 mg rectal Daily Sreekanth Armstrong NP Carrier Fluids for Secondary Infusion - 0.9% Sodium Chloride 30 mL intravenous PRN Sreekanth Armstrong NP 30 mL at 06/06/23 0140 Carrier Fluids for Secondary Infusion - 0.9% Sodium Chloride 30 mL intravenous PRN Sreekanth Armstrong NP carvediloL (COREG) tablet 25 mg 25 mg oral BID with meals (bkfst, dinner) Bettie Wheeler NP docusate sodium (COLACE) capsule 100 mg 100 mg oral BID Sreekanth Armstrong NP 100 mg at 821 enoxaparin (LOVENOX) syringe 40 mg 40 mg subcutaneous Daily-2100 Sreekanth Armstrong NP 40 mg at 06/09/232022 gabapentin (NEURONTIN) capsule 300 mg 300 mg oral TID Sreekanth Armstrong NP 300 mg at 06/10/23 0715 hydrALAZINE (APRESOLINE) tablet 10 mg 10 mg oral TID PRN Bettie Wheeler NP methocarbamoL (ROBAXIN) tablet 750 mg 750 mg oral TID Sreekanth Armstrong NP 750 mg at 06/10/23 0715 ondansetron (ZOFRAN) injection 4 mg 4 mg intravenous Q6H PRN Sreekanth Armstrong NP 4 mg at 06/07/23 0911 oxyCODONE (ROXICODONE) tablet 10 mg 10 mg oral Q4H PRN Sreekanth Armstrong NP 10 mg at 06/10/23 1216 polyethylene glycol (MIRALAX) packet 17 g 17 g oral BID Sreekanth Armstrong NP 17 g at 06/08/23 0821 prochlorperazine (COMPAZINE) injection 5 mg 5 mg intravenous Q6H PRN Sreekanth Armstrong NP 5 mg at 06/07/23 0956 QUEtiapine (SEROquel) tablet 50 mg 50 mg oral Nightly Sreekanth Armstrong NP 50 mg at 06/09/232021 ramelteon (ROZEREM) tablet 8 mg 8 mg oral Nightly PRN Sreekanth Armstrong NP senna (SENOKOT) tablet 1 tablet 1 tablet oral BID Sreekanth Armstrong NP 1 tablet at 06/08/23 0821 sodium chloride (OCEAN) 0.65 % nasal spray 2 spray 2 spray each nostril Q2H PRN Sreekanth Armstrong NP sodium chloride 0.9% flush 0.5-20 mL 0.5-20 mL intra-catheter Q8H SUSAN Sreekanth Armstrong NP 10 mL at 06/10/23 0515 sodium chloride 0.9% flush 0.5-20 mL 0.5-20 mL intra-catheter PRN Sreekanth Armstrong NP tamsulosin (FLOMAX) extended release capsule 0.8 mg 0.8 mg oral Daily with dinner Sreekanth ArmstrongTREE hernandez 0.8 mg at 06/09/23 1740 Objective Vitals: 24hr Min/Max: Temp Min: 36.3 ??C (97.3 ??F) Max: 36.6 ??C (97.8 ??F) Pulse Min: 86 Max: 105 BP Min: 119/85 Max: 188/109 Resp Min: 11 Max: 24 SpO2 Min: 89 % Max: 97 % Most Recent : Vitals: 06/10/23 1400 BP: (!) 182/91 Pulse: 88 Resp: 22 Temp: SpO2: 93% I/O last 2 completed shifts: In: - Out: 1150 [Urine:1150] No intake/output data recorded. Physical Exam: GENERAL: Awake, alert, oriented x 4; no acute distress. HEENT: Eyes: Pupils equal, round, reactive to light and accommodation. NECK: Supple and symmetric. RESPIRATORY: Good respiratory effort. Chest: Symmetrical rise and fall. Symmetrical expansion with respirations. CARDIOVASCULAR: Regular rate and rhythm. GASTROINTESTINAL: No tenderness or mass. Abdomen is nondistended. MUSCULOSKELETAL: Normal gait and station.No tenderness or effusion. Range of motion adequate. Strength and tone equal bilaterally, stable. PULSES: AT/PT bilat multiphasic INCISIONS: groin access site C/D/I, no hematoma, no bleeding/drainage. NEUROLOGICAL: Cranial nerves II-XII grossly intact. Sensation intact. Lab/Radiology/Diagnostic Review: Laboratory review: Lab results in the last 12 hours: Recent Results (from the past 12 hour(s)) Magnesium Collection Time: 06/10/23 5:24 AM Result Value Ref Range Magnesium 2.4 1.4 - 2.5 mg/dL Phosphorus Collection Time: 06/10/23 5:24 AM Result Value Ref Range Phosphorus, pl 3.5 2.3 - 4.5 mg/dL CBC with auto differential Collection Time: 06/10/23 5:24 AM Result Value Ref Range WBC 9.5 3.8 - 9.9 K/cumm Hgb 10.7 (L) 13.0 - 17.5 g/dL Hct 32.8 (L) 38.9 - 50.3 % Plt 333 150 - 400 K/cumm MPV 9.0 (L) 9.1 - 12.3 fL RBC 3.67 (L) 4.30 - 5.80 M/cumm MCV 89.4 81.3 - 96.4 fL MCH 29.2 27.1 - 33.3 pg MCHC 32.6 32.3 - 35.7 g/dL RDW CV 13.7 11.1 - 14.9 % RDW SD 45.1 35.7 - 48.1 fL NRBC abs 0.00 0.00 - 0.01 K/cumm Differential, auto Collection Time: 06/10/23 5:24 AM Result Value Ref Range Neutrophil abs 5.8 1.5 - 6.5 K/cumm Imm gran abs 0.1 0.0 - 0.1 K/cumm Lymphocyte abs 2.2 0.8 - 3.3 K/cumm Monocyte abs 1.3 (H) 0.2 - 0.8 K/cumm Eosinophil abs 0.1 0.0 - 0.5 K/cumm Basophil abs 0.0 0.0 - 0.1 K/cumm Neutrophil pct 60.9 % Imm gran pct 1.1 % Lymphocyte pct 23.0 % Monocyte pct 13.7 % Eosinophil pct 0.9 % Basophil pct 0.4 % eGFR Collection Time: 06/10/23 5:24 AM Result Value Ref Range eGFR >90 >=60 mL/min/1.73 m2 Basic metabolic panel Collection Time: 06/10/23 5:24 AM Result Value Ref Range Sodium 141 135 - 145 mmol/L Potassium, pl 3.5 3.3 - 4.9 mmol/L Chloride 104 97 - 110 mmol/L CO2 26 22 - 32 mmol/L Anion gap 11 2 - 15 mmol/L BUN 11 6 - 25 mg/dL Creatinine 0.77 (L) 0.80 - 1.30 mg/dL Glucose 108 70 - 199 mg/dL Calcium 9.2 8.5 - 10.3 mg/dL Assessment/Plan Principal Problem: Dissection of abdominal aorta (CMS/HCC) (HCC) Active Problems: Dissection of thoracoabdominal aorta (CMS/HCC) (HCC) HTN (hypertension) Moderate malnutrition (CMS/HCC) (HCC) HTN (hypertension) Assessment & Plan Goal systolic BP above 140 for one month post-op for spinal cord perfusion. Systolic BP currently below goal. - Dr. Abarca following - decreased carvedilol to 12.5 bid - Per Dr. Abarca: Plan to wean off hydral. Reduce hydral to 25 TID, to be dosed for systolic >140 and start amlodipine 5 on 06/09. Hydral dc'd. Coreg increased 06/10. - continue OU status Dissection of thoracoabdominal aorta (CMS/HCC) (HCC) Assessment & Plan Presents with abdominal pain and concern for progression of dissection on CT - 06/05: OR s/p TEVAR extension and dissection stent placement - BP management per HTN - pain control - Q4 NV checks, Q2 VS - lovenox DVT ppx - He will f/u with Dr. Abarca as outpatient for genetics testing. Residential Patient Centered Goal for Treatment: to go home and not come back Agree with patient centered goal: yes For patients or family members viewing this note through [employer] programs: This note was written as a [...] be involved in your care. Cosigned by Nikhil Samuel MD at 06/21/2023 11:39 AM CLOD PULLER PULLER PULLER * Ana Laura Starr RD - 06/09/2023 2:16 PM CST NUTRITION ASSESSMENT Nutrition Status: Patient meets criteria for moderate acute malnutrition, reference ASPEN guidelines. Present on Admission: Yes REASON FOR ASSESSMENT: Screened at Nutrition Risk - At Risk MST Score Encounter Date: 06/09/23 2:17 PM Admission Date: 06/03/2023 LOS: 6 days HPI: Patient is a 33 y.o. male Pt with recent type B aortic dissection s/p TEVAR 05/02. Course complicated by refractory hypertension and transient spinal cord ischemia managed with lumbar drain with recovery of motor and sensation in the BLE. Now returns with increased abdominal and back pain in settingof hypertensive urgency. Pt admitted to [facility] CTA 06/03 c/f collapse of true lumen adjacent to celiac axis as caused of abd pain Objective History reviewed. No pertinent past medical history. History reviewed. No pertinent surgical history. Social History Tobacco Use Smoking status: Never Smokeless tobacco: Never Substance and Sexual Activity Drug use: None Sexual activity: None Alcohol Use: Not on file MEDICATION/LAB REVIEW: Scheduled Meds: acetaminophen, 1,000 mg, oral, Q6H SUSAN amLODIPine, 5 mg, oral, Daily aspirin, 81 mg, oral, Daily bisacodyL, 10 mg, rectal, Daily carvediloL, 12.5 mg, oral, BID with meals (bkfst, dinner) docusate sodium, 100 mg, oral, BID enoxaparin, 40 mg, subcutaneous, Daily-2100 gabapentin, 300 mg, oral, TID hydrALAZINE, 25 mg, oral, TID methocarbamoL, 750 mg, oral, TID polyethylene glycol, 17 g, oral, BID QUEtiapine, 50 mg, oral, Nightly senna, 1 tablet, oral, BID sodium chloride 0.9%, 0.5-20 mL, intra-catheter, Q8H SUSAN tamsulosin, 0.8 mg, oral, Daily with dinner Continuous Infusions: PRN Meds: sodium chloride 0.9% sodium chloride 0.9% hydrALAZINE HYDROmorphone ondansetron oxyCODONE prochlorperazine ramelteon sodium chloride sodium chloride 0.9% Recent Labs Lab Units 06/08/23205206/08/23 0003 06/07/23 0011 06/03/23 1836 06/03/23 1830 SODIUM mmol/L 136 135 134* < > 142 POTASSIUM PLASMA mmol/L 3.7 3.5 3.7 < > 3.6 CHLORIDE mmol/L 101 100 97 < > 105 CO2 mmol/L 26 27 28 < > 25 BUN SERUM mg/dL 17 16 8 < > 13 CREATININE mg/dL 1.01 0.91 0.80 < > 1.17 CREATININE POC -- -- -- < > -- QPO-LSK-CQEFBLH mL/min/1.73 m2 >90 >90 >90 < > 85 CALCIUM mg/dL 8.6 8.4* 8.5 < > 9.9 ALBUMIN g/dL -- -- -- -- 4.1 PHOSPHORUS PLASMA mg/dL 2.1* 2.8 2.0* < > -- MAGNESIUM mg/dL 2.3 2.2 2.1 < > -- < > = values in this interval not displayed. Recent Labs Lab Units 06/08/23205206/08/23 0003 06/07/23 0011 06/06/23 0814 06/06/23 0006 06/05/23 1334 06/05/23 1119 GLUCOSE mg/dL 164 108 114 97 100 90 -- POC GLUCOSE MONITOR mg/dL -- -- -- -- -- -- 115 No results found for: ALT , AST , BILIRUBIN , ALKPHOS , LIPASE Lab Results Component Value Date TRIG 275 (H) 06/05/2023 NURSING ASSESSMENT: Last BM Date: 06/09/23 Bowel Sounds (All Quadrants): Active Emesis Assessment Emesis Color/Appearance: Clear Toni Scale Score: 21 Skin Integrity: Surgical incision Vital Signs BP: (!) 161/103 Temp: 36.7 ??C (98.1 ??F) Pulse: 95 Resp: 21 SpO2: 96 % Intake/Output Summary (Last 24 hours) at 06/09/2023 1417 Last data filed at 06/09/2023 0445 Gross per 24 hour Intake 400 ml Output 525 ml Net -125 ml Adult Malnutrition Scoring Tool (MST) Have You Recently Lost Weight Without Trying?: Yes (Comment) How Much Weight Have You Lost?: 14 - 23 lb Have you been eating poorly because of a decreased appetite?: Yes Malnutrition Screening Tool (MST) Score: 3 Within the past 12 months, you worried that your food would run out before you got the money to buymore.: Never true Within the past 12 months, the food you bought just didn't last and you didn't have money to get more.: Never true Anthropometrics Weight: 96.5 kg (212 lb 11.9 oz) Admission Weight : 100.4 kg Weight Change: -0.20 kg (-0.44 lbs) IBW/kg (Calculated) : 72.6 kg Height: 175.3 cm (5' 9 ) Weight in (lb) to have BMI = 25: 168.9 BMI (Calculated): 31.4 Wt Readings from Last 10 Encounters: 06/08/23 96.5 kg (212 lb 11.9 oz) 05/16/23 99.2 kg (218 lb 11.2 oz) 05/06/23 111.6 kg (246 lb 0.5 oz) Dietary Orders (From admission, onward) Start Ordered 06/06/23 1430 Adult Diet Regular Diet effective now Question: ([facility]) Diet type Answer: Regular 06/06/23 1429 Allergies: Reviewed. IMPRESSION: 06/09 - RD screened pt per MST score of 3. Pt reports eating less after may 16, 2023 - was eating only jello and McChicken. Reports having N/V/D EGG BUYER, but denies it during the hospital stay. States agood appetite - eating 75-100% of his meals. Per chart review, pt weighed 224 lbs on 05/12/23 and currently weighs 212 lbs, indicating 5.3% wt loss x 1 months. Conducted NFPE (view below). Labs reviewed. RD following. Pt appears well nourished. Note fat/muscle wasting noted. Note during recent admission pt was fluidoverloaded and wt loss in part due to fluid. Pt UbW is ~225#. Pt reports decreased po intake in last few days 2/2 abd pain,maybe lost a few pounds, but previously eating well. Pt doesn't meet criteria for malnutrition at this time. Pt currently NPO. Will monitor poi intake and tolerance once diet advances. ASPEN MALNUTRITION ASSESSMENT: Date of completion: 06/04/23 ASPEN/AND Malnutrition Screening: Acute illness or injury mild/moderate Weight Loss: 5% in 1 month Body Fat: Mild/Moderate Muscle Mass: Mild/Moderate Patient Meets Criteria for Moderate Malnutrition: Yes NUTRITION FOCUSED PHYSICAL EXAM: Completed. Subcutaneous Fat Loss Orbital Region - Surrounding the Eye: Depressions, Somewhat hollow look Cheek Region - Buccal Fat: Somewhat sunken appearance Upper Arm Region - Triceps/Biceps: Some depth pinch but not ample Muscle Loss [place] Region - Temporalis Muscle: Slight depression Clavicle and Acromion Bone Region - Deltoid Muscle: Bones prominent, Acromion process may slightly protrude Dorsal Hand - Interosseous Muscle: Slightly depressed Posterior Calf Region - Gastrocnemius Muscle: Thin, minimal to no muscle definition NUTRITION DIAGNOSIS: Nutrition Diagnosis 1: Protein-Calorie Malnutrition - Moderate Related to: Acute illness/injury Evidenced by: Patient interview INTERVENTION(S): Continue with current diet order NFPE Snacks in-between meals Continue adequate PO intake Monitor labs, appetite, PO intake, and GI issues. RD following. GOAL(S): Adequate nutrition to meet estimated needs by next assessment MONITORING/EVALUATION: Appetite, PO intake, Plan of care, Labs, I/O Ana Laura Starr MS, RD, LD [facility] PULLER * Shannon Bran NP - 06/09/2023 11:45 AM CST Vascular Surgery Daily Progress Patient Name/MRN: Eriberto Chau [id number] Treatment Team: Vascular Surgery- Pager: Attending: Nikhil Samuel MD Today's Date: 06/09/2023 Room/Bed: [id number] Admit Date: 06/03/2023 Code Status: Full Code Subjective Chief complaint: Abdominal pain Events During This Hospitalization: 06/04: Admitted to ICU for hypertensive urgency and bilat flank 4-[address] concerning for progression of thoracoabdominal dissection. 06/05: OR for TEVAR extension and dissection stent placement Events Over Last 24 Hours: BP below goal of systolic above 140. Decreased carvedilol. Further medication changes per Dr. Abarca. Exam WNL. Allergies Allergen Reactions Amoxicillin Hives Current Facility-Administered Medications Medication Dose Route Frequency Provider Last Rate Last Admin acetaminophen (TYLENOL) tablet 1,000 mg 1,000 mg oral Q6H [facility] Sreekanth Armstrong NP 1,000 mg at 06/09/23 0450 amLODIPine (NORVASC) tablet 5 mg 5 mg oral Daily Shannon Bran NP aspirin chewable tablet 81 mg 81 mg oral Daily Sreekanth Armstrong NP 81 mg at 06/09/23 0852 bisacodyL (DULCOLAX) suppository 10 mg 10 mg rectal Daily Sreekanth Armstrong NP Carrier Fluids for Secondary Infusion - 0.9% Sodium Chloride 30 mL intravenous PRN Sreekanth Armstrong NP 30 mL at 06/06/23 0140 Carrier Fluids for Secondary Infusion - 0.9% Sodium Chloride 30 mL intravenous PRN Sreekanth Armstrong NP carvediloL (COREG) tablet 12.5 mg 12.5 mg oral BID with meals (bkfst, dinner) Kathryn Granger MD 12.5 mg at 06/09/23 0852 docusate sodium (COLACE) capsule 100 mg 100 mg oral BID Sreekanth Armstrong NP 100 mg at 1 enoxaparin (LOVENOX) syringe 40 mg 40 mg subcutaneous Daily-2099 Sreekanth Armstrong NP 40 mg at 06/08/232038 gabapentin (NEURONTIN) capsule 300 mg 300 mg oral TID Sreekanth Armstrong NP 300 mg at 06/09/23 0852 hydrALAZINE (APRESOLINE) injection 10 mg 10 mg intravenous Q4H PRN Sreekanth Armstrong NP 10 mg at 06/08/23 1224 hydrALAZINE (APRESOLINE) tablet 25 mg 25 mg oral TID Shannon Bran NP HYDROmorphone (DILAUDID) injection 0.5 mg 0.5 mg intravenous Q2H PRN Sreekanth Armstrong NP 0.5 mg at 06/08/23 1223 methocarbamoL (ROBAXIN) tablet 750 mg 750 mg oral TID Sreekanth Armstrong NP 750 mg at 06/09/23 0852 ondansetron (ZOFRAN) injection 4 mg 4 mg intravenous Q6H PRN Sreekanth Armstrong NP 4 mg at 06/07/23 0911 oxyCODONE (ROXICODONE) tablet 10 mg 10 mg oral Q4H PRN Sreekanth Armstrong NP 10 mg at 06/09/23 0856 polyethylene glycol (MIRALAX) packet 17 g 17 g oral BID Sreekanth Armstrong NP 17 g at 06/08/23 0821 prochlorperazine (COMPAZINE) injection 5 mg 5 mg intravenous Q6H PRN Sreekanth Armstrong NP 5 mg at 06/07/23 0956 QUEtiapine (SEROquel) tablet 50 mg 50 mg oral Nightly Sreekanth Armstrong NP 50 mg at 06/08/232038 ramelteon (ROZEREM) tablet 8 mg 8 mg oral Nightly PRN Sreekanth Armstrong NP senna (SENOKOT) tablet 1 tablet 1 tablet oral BID Sreekanth Armstrong NP 1 tablet at 06/08/23 0821 sodium chloride (OCEAN) 0.65 % nasal spray 2 spray 2 spray each nostril Q2H PRN Sreekanth Armstrong NP sodium chloride 0.9% flush 0.5-20 mL 0.5-20 mL intra-catheter Q8H SUSAN Sreekanth Armstrong NP 10 mL at 06/06/23 1350 sodium chloride 0.9% flush 0.5-20 mL 0.5-20 mL intra-catheter PRN Sreekanth Armstrong NP tamsulosin (FLOMAX) extended release capsule 0.8 mg 0.8 mg oral Daily with dinner Sreekanth Armstrong NP 0.8 mg at 06/08/23 1725 Objective Vitals: 24hr Min/Max: Temp Min: 36.4 ??C (97.5 ??F) Max: 36.9 ??C (98.4 ??F) Pulse Min: 87 Max: 103 BP Min: 110/73 Max: 163/95 Resp Min: 9 Max: 25 SpO2 Min: 90 % Max: 99 % Most Recent : Vitals: 06/09/23 1100 BP: 140/84 Pulse: 93 Resp: 20 Temp: 36.7 ??C (98.1 ??F) SpO2: 94% I/O last 2 completed shifts: In: 422.8 [P.O.:400; I.V.:22.8] Out: 900 [Urine:900] No intake/output data recorded. Physical Exam: GENERAL: Awake, alert, oriented x 4; no acute distress. HEENT: Eyes: Pupils equal, round, reactive to light and accommodation. NECK: Supple and symmetric. RESPIRATORY: Good respiratory effort. Clear to auscultation bilaterally anterior and posterior. Chest: Symmetrical rise and fall. Symmetrical expansion with respirations. CARDIOVASCULAR: Regular rateand rhythm. No murmur, gallops, clicks, heaves or rub. GASTROINTESTINAL: No tenderness or mass. Bowel sounds equal times four quadrants. Abdomen is nondistended. MUSCULOSKELETAL: Normal gait and station.No tenderness or effusion. Range of motion adequate. Strength and tone equal bilaterally, stable. PULSES: AT/PT bilat multiphasic INCISIONS: groin access site C/D/I, no hematoma, no bleeding/drainage. NEUROLOGICAL: Cranial nerves II-XII grossly intact. Sensation intact. Lab/Radiology/Diagnostic Review: Laboratory review: Lab results in the last 12 hours: No results found for this or any previous visit (from the past 12 hour(s)). Assessment/Plan Principal Problem: Dissection of abdominal aorta (CMS/HCC) (HCC) Active Problems: Dissection of thoracoabdominal aorta (CMS/HCC) (HCC) HTN (hypertension) Dissection of thoracoabdominal aorta (CMS/HCC) (HCC) Assessment & Plan Presents with abdominal pain and concern for progression of dissection on CT - 06/05: OR s/p TEVAR extension and dissection stent placement - BP management per HTN - pain control - Q4 NV checks, Q2 VS - lovenox DVT ppx - He will f/u with Dr. Abarca as outpatient for genetics testing. HTN (hypertension) Assessment & Plan Goal systolic BP above 140 for one month post-op for spinal cord perfusion. Systolic BP currently below goal. - Dr. Abarca following - decreased carvedilol to 12.5 bid - Per Dr. Abarca: Plan to wean off hydral. Reduce hydral to 25 TID, to be dosed for systolic >140 and start amlodipine 5. - continue OU status Agree with patient centered goal: yes For patients or family members viewing this note through Typeform programs: This note was written as a [...] be involved in your care. Cosigned by Nikhil Samuel MD at 06/21/2023 11:39 AM [facility]OD PULLER PULLER PULLER * Dank Garcia - 06/09/2023 11:40 AM CST Physical Therapy Physical Therapy Progress Note NOTE: This is a summary note of the grande components of the treatment session. For full details, review chart for all flowsheets documented on by this physical therapy clinician on this date. Vital signs documented in vital signs flowsheet. Care plan progress documented in Care Plan Activity. For questions, please review the treatment team and contact the PT or EGG BUYER currently assigned to this patient. If a physical therapy clinician is not assigned to this patient, please call [phone]. 06/09/23 1140 PT Last Visit Session Type Treatment (Discharge) PT Received On 06/09/23 Safe Environment Arm band checked;Patient found sitting in chair;Session completed bedside;Gait belt utilized for all out of bed mobility Subjective Agreeable to Therapy Family/Caregiver Present Yes (Family) Precautions Precautions None Activity Tolerance Activity Tolerance Comments [place]DEEP: [place] 04/18 Pain Assessment Pain Assessment 0-10 Pain Score 8 Patient's Stated Pain Goal No pain Pain Type Acute pain Pain Location Back (Lumbar) Pain Orientation Generalized Pain Interventions Other (Comment) (RN Notified) Cognition Arousal/Alertness Alert;Appropriate responses to stimuli Orientation Oriented X4 (person, place, time, situation) Following Commands Follows all commands and directions without difficulty Balance Balance Yes Static Sitting Balance Static Sitting-Balance Support No upper extremity supported Static Sitting-Sitting Surface Chair Static Sitting-Level of Assistance Independent Static Standing Balance Static Standing-Balance Support Bilateral upper extremity supported Static Standing-Standing Surface Floor Static Standing-Level of Assistance Distant supervision Static Standing-Comment/# of Minutes Safety Other Activities Other Activities Comments [place]: [place] 04/18 Bed Mobility Bed Mobility No Transfers Transfer Yes Transfer 1 Transfer From 1 Sit Transfer Type 1 To and from Transfer to 1 Stand Technique 1 Sit to stand;Stand to sit Transfer Device 1 Wheeled walker Transfer Level of Assistance 1 Distant supervision Trials/Comments 1 Safety Ambulation Functional Ambulation Category 3 Ambulation Yes Ambulation 1 Distance (ft) 1 500 Surface 1 Level tile Device 1 Wheeled walker Assistance 1 Distant supervision;Minimal verbal cues Gait: Requires verbal cues to 1 Pace activity;Use assistive device safely Gait Deviations 1 Leanne - decreased;Step length - decreased;Weight bearing through UE???s - increased Ambulation Comments 1 Safety Stairs Stairs Yes Stairs Number of Stairs 1 5 Rails 1 Right Device 1 No device Assistance 1 Distant supervision;Minimal verbal Cues Stairs: Requires assist with 1 (Safety) Basic Mobility - 6 Click How much difficulty does the patient have: Turning over in bed 4 How much difficulty does the patient currently have: Sitting down and standing up from a chair witharms? 3 How much difficulty does the patient have: Moving from lying on back to sitting on the side of the bed? 4 How much difficulty does the patient have: Moving to and from a bed to a chair including wheelchair? 4 How much help does the patient currently need: Walk in hospital room? 4 How much help from another person does the patient currently need: Climbing 3-5 steps with a railing? 3 Total 6 Click Score (range 6-24) 22 Score Interpretation 47.40 Safe Environment End of Therapy Session Safe Environment End of Therapy Session Patient left in recliner;RN notified;Call light within reach;Overbed table within reach Assessment Prognosis Good Problem List Decreased strength;Decreased range of motion;Decreased endurance;Impaired balance Plan Plan Discharge;If this is the last note, consider this the discharge summary Recommendation/Plan PT Recommendation/Plan (S) Home with family;Outpatient PT Patient at high risk for Injury due to reduced functional status PT Recommendation/Plan Comments Patient agreeable to PT POC PT Frequency during current admission Discharge from this Service PT Equipment Recommended None Progress during current admission Discontinue PT Multi-Disciplinary Problems (from Physical Therapy) Active Problems Problem: Mobility Start Date: 06/08/23 Goal Start Date Expected End Date End Date LTG - Patient will ambulate community distance 06/08/23 06/15/23 -- Goal Start Date Expected End Date End Date STG - Patient will ambulate 06/08/23 06/15/23 -- Goal Details: 300' no AD, SBA For questions, please review the treatment team and contact the PT or EGG BUYER currently assigned to this patient. If a physical therapy clinician is not assigned to this patient, please call [phone]. Cosigned by Otoniel Dow, PT at 06/09/2023 12:49 PM [facility] PULLER PULLER PULLER * Joaquín Abarca MD - 06/09/2023 10:54 AM CST Cardiology Daily Progress Note Patient Name: Eriberto Chau Provider: Joaquín Abarca MD : [id number] Date of Service: 06/09/2023 CHIEF COMPLAINT: hypertension SUBJECTIVE: Pt feeling generally well. Has some low back pain--a symptom he has had before before hospitalization that he relates to the back primarily. No chest pain, sob. Bp well controlled past day. No weakness or paresthesias in legs MEDICATIONS: acetaminophen, 1,000 mg, oral, Q6H SUSAN aspirin, 81 mg, oral, Daily bisacodyL, 10 mg, rectal, Daily carvediloL, 12.5 mg, oral, BID with meals (bkfst, dinner) docusate sodium, 100 mg, oral, BID enoxaparin, 40 mg, subcutaneous, Daily-2100 gabapentin, 300 mg, oral, TID hydrALAZINE, 50 mg, oral, TID methocarbamoL, 750 mg, oral, TID polyethylene glycol, 17 g, oral, BID QUEtiapine, 50 mg, oral, Nightly senna, 1 tablet, oral, BID sodium chloride 0.9%, 0.5-20 mL, intra-catheter, Q8H SUSAN tamsulosin, 0.8 mg, oral, Daily with dinner REVIEW OF SYSTEMS: General: No fever, chills, malaise or fatigue Eyes: No alterations in visual acuity ENT: No alterations in auditory acuity, no sore throat Pulmonary: No dyspnea, cough or hemoptysis Cardiac: No chest pain, orthopnea, PND or palpitations GI: No nausea, vomiting, diarrhea or constipation Musculoskeletal: No myalgias or arthralgias other than that in HPI Skin: no rashes Neuro: No headaches, parathesias or focal neurological complaints Endocrine: No cold or heat intolerance Heme: no excessive bleeding or bruising PHYSICAL EXAM: Vitals: 06/09/23 0400 06/09/23 0600 06/09/23 0700 06/09/23 0852 BP: 142/78 110/73 126/78 126/91 BP Location: Right arm Right arm Right arm Left arm Patient Position: Lying Lying Lying Pulse: 94 93 87 99 Resp: Temp: 36.7 ??C (98 ??F) 36.4 ??C (97.5 ??F) TempSrc: Oral Oral SpO2: 95% 95% 94% 99% Weight: Height: Intake/Output Summary (Last 24 hours) at 06/09/2023 1034 Last data filed at 06/09/2023 0445 Gross per 24 hour Intake 403.05 ml Output 750 ml Net -346.95 ml General: Well appearing, No pain or [...] normal affect Neurologic: awake/alert, no focal deficits LAB/RADIOLOGY/DIAGNOSTIC REVIEW: Recent Labs Lab Units 06/08/23205206/08/23 0003 06/07/23 0011 HEMOGLOBIN g/dL 9.6* 10.9* 11.1* HEMATOCRIT % 30.9* 31.8* 33.1* WBC K/cumm 10.9* 11.8* 11.2* PLATELETS K/cumm 232 260 270 Recent Labs Lab Units 06/08/23205206/03/236 06/03/23 1830 SODIUM mmol/L 136 < > 142 POTASSIUM PLASMA mmol/L 3.7 < > 3.6 CHLORIDE mmol/L 101 < > 105 CO2 mmol/L 26 < > 25 ANIONGAP mmol/L 9 < > 12 GLUCOSE mg/dL 164 < > 130 POC GLUCOSE MONITOR -- < > -- BUN SERUM mg/dL 17 < > 13 CREATININE mg/dL 1.01 < > 1.17 CREATININE POC -- < > -- CALCIUM mg/dL 8.6 < > 9.9 ALBUMIN g/dL -- -- 4.1 ALK PHOS Units/L -- -- 116 ALT Units/L -- -- 19 AST Units/L -- -- 10 BILIRUBIN TOTAL mg/dL -- -- 0.3 < > = values in this interval not displayed. XR Chest 1 View Result Date: 06/09/2023 The current study is compared with the prior radiograph dated 06/07/2023 at 9:24 PM. Patient is status post aortic and subclavian stent placement. Lungs are clear. No pleural effusion or pneumothorax. Heart size unchanged. Dictated by: Dc Berrios MD XR Chest 1 View Result Date: 06/08/2023 Changes of thoracic and abdominal aortic stent graft with left subclavian stent. The lungs are clear without focal opacity. There is no pleural effusion. There is no pneumothorax. Cardiac silhouette is stable from prior radiograph. Dictated by: Delta Doss MD The radiology attending physician haspersonally reviewed this study, and had reviewed and/or edited this written report and agrees with i t. Electronically signed by: Gen Baker M.D. US Lower Extremity Left Limited Result Date: 06/07/2023 1. No pseudoaneurysm or arteriovenous fistula of the left groin. 2. No groin hematoma. Dictated by:Sherri Banerjee MD The radiology attending physician has personally reviewed this study, and had reviewed and/or edited this written report and agrees with it. Electronically signed by: Monster Easley M.D. Assessment/Plan HTN (hypertension) Assessment & Plan Blood pressure well controlled at present. Medicines are being adjusted. Currently on carvedilol and hydralazine. A want to transition to amlodipine 5 mg a day to wean hydralazine, as tolerated, as 3 times a day medication can be difficult long-term Dissection of thoracoabdominal aorta (CMS/HCC) (HCC) Assessment & Plan Clinically stable. Renal function stable. Blood pressure improved We will recommend genetic testing as an outpatient PULLER * Mary Mascorro, OT - 06/09/2023 10:43 AM CST Occupational Therapy OCCUPATIONAL THERAPY INITIAL DISCHARGE NOTE NOTE: This is a summary note of the grande components of the evaluation session. For full details, review chart for all flowsheets documented on by this occupational therapist on this date. Vital signs documented in vital signs flowsheet. Chart reviewed Assessment: Patient denies need for further occupational therapy at this time or report/demonstrates baseline status with ADLs/IADLs. Patient will be discharged from occupational therapy. Please re-refer if status changes. Subjective: Patient reports the following: no significant change in strength or range of motion in arms and/or legs. Patient denies: new dizziness with activity or position changes, falls in the past year, any significant changes in balance. In addition, patient reports no significant difficulty with performance of ADLs/IADLs compared to baseline and no concerns with home accessibility or support upon return to home. Patient reports being out of bed and mobilizing during this hospital stay. 06/09/23 1043 General Session Type Evaluation (initial discharge) OT Received On 06/09/23 Precautions Precautions None Home Living Type of Home House Home Layout One level Home Access Stairs to enter with rails Entrance Stairs-Number of Steps 3 Prior Function Level of [place] Independent with ADLs;Independent functional transfers;Independent with ambulation;Independent with homemaking with ambulation Lives With Significant other;Mother (7 kids) Receives Help From Spouse/Significant other;Family (multimedia journalist) ADL ADLS (WDL) X Grooming Grooming: Where assessed Standing at sink Grooming: Level of assistance Modified independent Grooming: Assistance with Increased time to complete LE Dressing LE Dressing: Where assessed Standing;Sitting;Edge of bed LE Dressing: Level of assistance Modified independent LE Dressing: Assistance with Increased time to complete Toileting Toileting: Where assessed Toilet Toileting: Level of assistance Modified Independent Toileting: Assistance with Increased time to complete Room Mobility Room Mobility: Where assessed bed<>bathroom Health Management: Equipment Walker Room Mobility: Level of Assistance Modified Independent Room Mobility comment increased time Toilet Transfers Toilet Transfer From Bed Toilet Transfer Type To and from Toilet Transfer to Standard toilet Toilet Transfer Technique Ambulating Toilet Transfer: Equipment Wheeled walker Toilet Transfers Modified independence Toilet Transfers Comments increased time Pain Assessment Pain Assessment 0-10 Pain Score 7 Pain Location Back (Lumbar) Pain Orientation Generalized Pain Interventions Repositioned;Ambulation Cognition Orientation Oriented X4 (person, place, time, situation) Following Commands Follows all commands and directions without difficulty Other Comments Comments Reviewed safety with energy conservation at home. Pt reported being interested in some outpatient therapy for [facility] building-PT notified. Daily Activity - 6 Clicks Putting on and taking off regular lower body clothing 4 Bathing 4 Toileting 4 Putting on and taking off upper body clothing 4 Personal Grooming 4 Eating Meals 4 Total Score (range 6-24) 24 Score Interpretation 57.54 Plan Plan Discharge;If this is the last note, consider this the discharge summary Recommendation/Plan OT Recommendation Home with family;Home with intermittent assist OT Frequency during current admission One-time visit (Discharge from this service) OT Evaluation Complete Yes Tinetti Balance: 16 Cognitive Tests Short Blessed Total Score: 2 Education: Education Topic: Role of OT: purpose of OT in the hospital setting and plan of care, Safety: duringself-care and functional transfers, Precautions: prescribed precautions during self-care and functional transfers, and Energy Conservation: instruction on energy conservation, work simplification andproper breathing with activity Who: patient Readiness: Acceptance Method: Explanation and Demonstration Response: Demonstrates Understanding Patient in agreement with plan and instructed in safe mobility during ADLs. Patient's questions related to occupational therapy addressed. Patient left in safe position in room with call light withinreach. PULLER * Cristobal Chopra MD - 06/08/2023 8:36 PM CST Vascular Surgery ICU accept note Patient Name/MRN: Eriberto Chau [id number] Treatment Team: Vascular Surgery- Pager: [phone] Attending: Nikhil Samuel MD Today's Date: 06/08/2023 Room/Bed: [id number] Admit Date: 06/03/2023 Code Status: Full Code Subjective Chief complaint: Abdominal pain Events During This Hospitalization: 06/04: Admit for hypertensive urgency and bilat flank 4-5 days; renal doppler NL, esmolol & cardene infusions, hutton placement 06/05: TEVAR: L groin access, placed [...] drain in place 06/07: Lumbar Drain Removal Events Over Last 24 Hours: Full function of lower extremities with equal strength. Multimodal pain control. Hutton removed, voiding spontaneously. Passing gas and stool (status post Mag citrate and suppository). Lovenox DVT prophylaxis resumed. Allergies Allergen Reactions Amoxicillin Hives Current Facility-Administered Medications Medication Dose Route Frequency Provider Last Rate Last Admin acetaminophen (TYLENOL) tablet 1,000 mg 1,000 mg oral Q6H [facility] Sreekanth Armstrong NP 1,000 mg at 06/08/23 1117 aspirin chewable tablet 81 mg 81 mg oral Daily Sreekanth Armstrong NP 81 mg at 06/08/23 0821 bisacodyL (DULCOLAX) suppository 10 mg 10 mg rectal Daily Sreekanth Armstrong NP Carrier Fluids for Secondary Infusion - 0.9% Sodium Chloride 30 mL intravenous PRN Sreekanth Armstrong NP 30 mL at 06/06/23 0140 Carrier Fluids for Secondary Infusion - 0.9% Sodium Chloride 30 mL intravenous PRN Sreekanth Armstrong NP carvediloL (COREG) tablet 25 mg 25 mg oral BID with meals (bkfst, dinner) Sreekanth Armstrong NP 25 mg at 06/08/23 0821 docusate sodium (COLACE) capsule 100 mg 100 mg oral BID Sreekanth Armstrong NP 100 mg at 821 enoxaparin (LOVENOX) syringe 40 mg 40 mg subcutaneous Daily-2100 Sreekanth Armstrong NP gabapentin (NEURONTIN) capsule 300 mg 300 mg oral TID Sreekanth Armstrong NP 300 mg at 06/08/23 0821 hydrALAZINE (APRESOLINE) injection 10 mg 10 mg intravenous Q4H PRN Sreekanth Armstrong NP 10 mg at 06/08/23 1224 hydrALAZINE (APRESOLINE) tablet 50 mg 50 mg oral TID Sreekanth Armstrong NP HYDROmorphone (DILAUDID) injection 0.5 mg 0.5 mg intravenous Q2H PRN Sreekanth Armstrong NP 0.5 mg at 06/08/23 1223 methocarbamoL (ROBAXIN) tablet 750 mg 750 mg oral TID Sreekanth Armstrong NP 750 mg at 06/08/23 0821 ondansetron (ZOFRAN) injection 4 mg 4 mg intravenous Q6H PRN Sreekanth Armstrong NP 4 mg at 06/07/23 0911 oxyCODONE (ROXICODONE) tablet 10 mg 10 mg oral Q4H PRN Sreekanth Armstrong NP 10 mg at 06/08/23 1416 polyethylene glycol (MIRALAX) packet 17 g 17 g oral BID Sreekanth Armstrong NP 17 g at 06/08/23 0821 prochlorperazine (COMPAZINE) injection 5 mg 5 mg intravenous Q6H PRN Sreekanth Armstrong NP 5 mg at 06/07/23 0956 QUEtiapine (SEROquel) tablet 50 mg 50 mg oral Nightly Sreekanth Armstrong NP 50 mg at 06/07/232016 ramelteon (ROZEREM) tablet 8 mg 8 mg oral Nightly PRN Sreekanth Armstrong NP senna (SENOKOT) tablet 1 tablet 1 tablet oral BID Sreekanth Armstrong NP 1 tablet at 06/08/23 0821 sodium chloride (OCEAN) 0.65 % nasal spray 2 spray 2 spray each nostril Q2H PRN Sreekanth Armstrong NP sodium chloride 0.9% flush 0.5-20 mL 0.5-20 mL intra-catheter Q8H SUSAN Sreekanth Armstrong NP 10 mL at 06/06/23 1350 sodium chloride 0.9% flush 0.5-20 mL 0.5-20 mL intra-catheter PRN Sreekanth Armstrong NP tamsulosin (FLOMAX) extended release capsule 0.8 mg 0.8 mg oral Daily with dinner Sreekanth Armstrong NP 0.8 mg at 06/07/23 1700 Objective Vitals: 24hr Min/Max: Temp Min: 36.1 ??C (97 ??F) Max: 36.8 ??C (98.2 ??F) Pulse Min: 82 Max: 122 BP Min: 136/67 Max: 189/91 Resp Min: 9 Max: 26 SpO2 Min: 90 % Max: 98 % Most Recent : Vitals: 06/08/23 1400 BP: 136/67 Pulse: 92 Resp: 12 Temp: 36.7 ??C (98 ??F) SpO2: 95% I/O last 2 completed shifts: In: 1636.5 [P.O.:1160; I.V.:476.5] Out: 1510 [Urine:1510] I/O this shift: In: 22.8 [I.V.:22.8] Out: 375 [Urine:375] Physical Exam: Constitutional: In no acute distress, A&O x4 Neuro: Cranial nerves grossly intact, equal strength in all extremities Pulmonary: Nonlabored respirations Cardiovascular: Extremities warm and well perfused Abdomen: Nondistended, soft and nontender Extremities: No edema Pulses: AT/PT bilateral multiphasic Groin: Access site C/D/I Lab/Radiology/Diagnostic Review: Recent Results (from the past 24 hour(s)) CBC without differential Collection Time: 06/08/23 8:53 PM Result Value Ref Range WBC 10.9 (H) 3.8 - 9.9 K/cumm Hgb 9.6 (L) 13.0 - 17.5 g/dL Hct 30.9 (L) 38.9 - 50.3 % Plt 232 150 - 400 K/cumm MPV 9.4 9.1 - 12.3 fL RBC 3.42 (L) 4.30 - 5.80 M/cumm MCV 90.4 81.3 - 96.4 fL MCH 28.1 27.1 - 33.3 pg MCHC 31.1 (L) 32.3 - 35.7 g/dL RDW CV 14.2 11.1 - 14.9 % RDW SD 46.9 35.7 - 48.1 fL NRBC abs 0.00 0.00 - 0.01 K/cumm Basic metabolic panel Collection Time: 06/08/23 8:53 PM Result Value Ref Range Sodium 136 135 - 145 mmol/L Potassium, pl 3.7 3.3 - 4.9 mmol/L Chloride 101 97 - 110 mmol/L CO2 26 22 - 32 mmol/L Anion gap 9 2 - 15 mmol/L BUN 17 6 - 25 mg/dL Creatinine 1.01 0.80 - 1.30 mg/dL Glucose 164 70 - 199 mg/dL Calcium 8.6 8.5 - 10.3 mg/dL Magnesium Collection Time: 06/08/23 8:53 PM Result Value Ref Range Magnesium 2.3 1.4 - 2.5 mg/dL Phosphorus Collection Time: 06/08/23 8:53 PM Result Value Ref Range Phosphorus, pl 2.1 (L) 2.3 - 4.5 mg/dL eGFR Collection Time: 06/08/23 8:53 PM Result Value Ref Range eGFR >90 >=60 mL/min/1.73 m2 Assessment/Plan Principal Problem: Dissection of abdominal aorta (CMS/HCC) (HCC) 33-year-old male with complicated type B aortic dissection who underwent placement of Cofield TBE on 05/02/23 who presents with abdominal pain and concern for progression of dissection on CT, now s/p TEVAR extension and dissection stent placementon 06/05/23 - SBP 140-160, plan for SBP>140 for 1 month postop - aspirin, Coreg, hydralazine p.r.n. - q2h neurovascular checks - diet as tolerated - hgb >10, 1 unit RBC prepped Cristobal Chopra, PGY-1 General Surgery ' Cosigned by Nikhil Samuel MD at 06/21/2023 11:39 AM CLOD PULLER PULLER PULLER PULLER * Kathryn Granger MD - 06/08/2023 11:21 AM CST Vascular Surgery Daily Progress Patient Name/MRN: Eriberto Chau [id number] Treatment Team: Vascular Surgery- Pager: [phone] Attending: Nikhil Samuel MD Today's Date: 06/08/2023 Room/Bed: [place] [id number] Admit Date: 06/03/2023 Code Status: Full Code Subjective Chief complaint: Abdominal Pain Events During This Hospitalization: 06/03/23: Admitted to CTICU for impulse control Events Over Last 24 Hours: Lumbar drain removed yesterday Tolerating diet Ambulating without issue L groin access site pain improving, L groin duplex normal Objective Vitals: 24hr Min/Max: Temp Min: 36.1 ??C (97 ??F) Max: 37.2 ??C (99 ??F) Pulse Min: 82 Max: 122 BP Min: 111/78 Max: 189/91 Resp Min: 9 Max: 26 SpO2 Min: 90 % Max: 98 % Most Recent : Vitals: 06/08/23 1100 BP: (!) 174/98 Pulse: 90 Resp: 15 Temp: SpO2: 94% I/O last 2 completed shifts: In: 1636.5 [P.O.:1160; I.V.:476.5] Out: 1510 [Urine:1510] I/O this shift: In: 22.7 [I.V.:22.7] Out: 150 [Urine:150] Physical Exam: GENERAL: AAOx3, NAD RESPIRATORY: Good respiratory effort. Non-labored respirations. CARDIOVASCULAR: Regular rate and rhythm GASTROINTESTINAL: Soft, NT, ND MUSCULOSKELETAL: normal ROM and strength VASCULAR: palpable DP bilaterally. L groin access site c/d/i, appropriately tender Lab/Radiology/Diagnostic Review: Labs and imaging from the last 24 hours personally reviewed. Assessment/Plan Principal Problem: Dissection of abdominal aorta (CMS/HCC) (HCC) 33-year-old male with complicated type B aortic dissection who underwent placement of Cofield TBE on 05/02/23 who presents with abdominal pain and concern for progression of dissection on CT, now s/p TEVAR extension and dissection stent placementon 06/05/23 - SBP 140-160, plan for SBP>140 for 1 month postop - q2h neurovascular checks - ok for transition to PO antiHTN - diet as tolerated - hgb >10 - ICU care preferred for 24h after lumbar drain removal Kathryn Granger Vascular Surgery Fellow Pager: [phone] Cosigned by Nikhil Samuel MD at 06/08/2023 4:22 PM CLOD PULLER PULLER PULLER * Priscilla Chacon DPNoel - 06/08/2023 8:29 AM CST Physical Therapy Physical Therapy Initial Assessment NOTE: This is a summary note for the grande assessments completed during the evaluation session. For full details, review chart review for all flowsheets documented on by this physical therapist on thisdate. Vital signs documented in vital signs flowsheet. Assessment Assessment Prognosis: Good Problem List: Gait deviations, Decreased strength, Decreased endurance, Impaired balance Plan Plan Plan : Plan of care initiated, If this is the last note, consider this the discharge summary PT Recommendation and Plan Recommendation/Plan PT Recommendation/Plan: Home with family, Home with intermittent assist PT Frequency during current admission: Follow-up visit only PT - Next Appointment: 06/09/23 PT Evaluation Complete: Yes General Information General Chart Reviewed: Yes Session Type: Evaluation PT Received On: 06/08/23 Safe Environment: Arm band checked, Patient found in supine, Gait belt not utilized, see comment Subjective: Agreeable to Therapy Family/Caregiver Present: No Prior Function Prior Function Level of Robertson: Independent with ADLs, Independent functional transfers, Independent with ambulation Lives With: Spouse (children) Receives Help From: Spouse/Significant other, Family (daytime babysitter) Driving: Yes 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 Fall within the last 6 months: No Home Living Home Living Type of Home: House Home Layout: One level Home Access: Stairs to enter with rails Entrance Stairs-Rails: Both Entrance Stairs-Number of Steps: 3 Home Mobility Equipment-Available: Wheeled walker Home Mobility Equipment-Currently Using: None Precautions Precautions Precautions: None Pain Pain Assessment Pain Assessment: 0-10 Pain Score: 7 Patient's Stated Pain Goal: No pain Pain Type: Acute pain Pain Location: Back (Lumbar) Pain Interventions: RN [...] and standing up from a chair witharms?: A little How much difficulty does the patient have: Moving from lying on back to sitting on the side of the bed?: None How much difficulty does the patient have: Moving to and from a bed to a chair including wheelchair?: A little How much help does the patient currently need: Walk in hospital room?: A little How much help from another person does the patient currently need: Climbing 3-5 steps with a railing?: A little Total 6 Click Score (range 6-24): 20 Bed Mobility Bed Mobility Bed Mobility: Yes Bed Mobility 1 Bed Mobility From 1: Supine Bed Mobility Type 1: To Bed Mobility to 1: Edge of bed Level of Assistance 1: Standby Assist Bed Mobility Comments 1: safety Transfers Transfers Transfer: Yes Transfer 1 Transfer From 1: Sit Transfer Type 1: To and from Transfer to 1: Stand Technique 1: Sit to stand, Stand to sit Transfer Device 1: Hand held assist Transfer Level of Assistance 1: Minimum Assist Trials/Comments 1: balance Transfers 2 Transfer From 2: Bed Transfer Type 2: To Transfer to 2: Chair with arms Technique 2: Stand and step Transfer Device 2: Hand held assist Transfer Level of Assistance 2: Minimum Assist Trials/Comments 2: Min A for balance Balance Ambulation Ambulation Ambulation: Yes Ambulation 1 Distance (ft) 1: 320 Surface 1: Level tile Device 1: Other (comments) (w/c push) Other Apparatus 1: Wheelchair follow Assistance 1: Standby Assist Gait: Requires assist with 1: Maintaining balance Gait: Requires verbal cues to 1: Pace activity, Utilize pursed lip breathing Gait Deviations 1: Leanne - decreased Ambulation Comments 1: no rest; SBA for safety Stairs Stairs Stairs: No Curbs RLE Assessment RLE Assessment RLE Assessment: Within Functional Limits LLE Assessment LLE Assessment LLE Assessment: Within Functional Limits Equipment Used Safe Environment End of Session Safe Environment End of Therapy Session: Patient left in chair, RN notified, Call light within reach Other Comments Other Comments Other PT Comments: Pt. reporting significant headache upon return to room, BRIA Guan informed PT Goals Multi-Disciplinary Problems (from Physical Therapy) Active Problems Problem: Mobility Start Date: 06/08/23 Goal Start Date Expected End Date End Date LTG - Patient will ambulate community distance 06/08/23 06/15/23 -- Goal Start Date Expected End Date End Date STG - Patient will ambulate 06/08/23 06/15/23 -- Goal Details: 300' no AD, SBA Goal Start Date Expected End Date End Date STG - Patient will ascend and descend 3 stairs with the following level of assist: 06/08/23 06/15/23 -- Goal Details: 3 stairs with rails, SBA PULLER * Sreekanth Armstrong NP - 06/08/2023 7:32 AM CSTAssociated Order(s): Critical Care Post-Procedure Diagnose(s): Dissection of abdominal aorta (CMS/HCC) ([facility]) CT ICU Daily Progress Shifts: NPP Shift Options: 8300 AM 1 Subjective Patient is a 33 y.o. 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 Overnight events: - Started coreg - [facility] ICU course: 06/04: Admit for hypertensive urgency and bilat flank 4-5 days; renal doppler NL, esmolol & cardene infusions, hutton placement 06/05: TEVAR: L groin access, placed [...] drain in place 06/07: Lumbar Drain Removal Objective Medications: Scheduled Meds:acetaminophen, 1,000 mg, oral, Q6H SUSAN aspirin, 81 mg, oral, Daily carvediloL, 25 mg, oral, BID with meals (bkfst, dinner) docusate sodium, 100 mg, oral, BID gabapentin, 300 mg, oral, TID heparin, 5,000 Units, subcutaneous, Q8H SUSAN methocarbamoL, 750 mg, oral, TID polyethylene glycol, 17 g, oral, BID QUEtiapine, 50 mg, oral, Nightly senna, 1 tablet, oral, BID sodium chloride 0.9%, 0.5-20 mL, intra-catheter, Q8H SUSAN tamsulosin, 0.8 mg, oral, Daily with dinner Continuous Infusions:clevidipine, 0-32 mg/hr, Last Rate: Stopped (06/08/23 0054) Lactated Ringer's, 10 mL/hr, Last Rate: Stopped (06/07/23 09) sodium chloride 0.9%, 3-12 mL/hr, Last Rate: 3 mL/hr (06/08/23 0500) Vitals: Temp: [36.6 ??C (97.9 ??F)-37.8 ??C (100 ??F)] 36.8 ??C (98.2 ??F) Pulse: [85-122] 94 BP: (111-166)/(67-92) 143/67 Resp: [8-26] 17 SpO2: [90 %-98 %] 97 % Arterial Line BP: (116-196)/(47-127) 189/92 Fluid balance: No intake/output data recorded. Intake/Output Summary (Last 24 hours) at 06/08/2023 0732 Last data filed at 06/08/2023 0600 Gross per 24 hour Intake 1605.51 ml Output 1480 ml Net 125.51 ml Ventilator settings: Hemodynamic parameters: PAP: -- CVP: -- PCWP: -- CO: -- CI: -- SVO2: -- Pacemaker Overdrive Pacing: -- Cardiac Rhythm: Normal sinus rhythm (06/08 599) Pacer Mode: -- Physical exam: Neuro: Alert, oriented, able to follow simple commands, PERRL 3mm, CAM (-), Equal 5/5 strength in lower extremities Cardiovascular: RRR, periphery warm with palpable pulses, no significant edema Pulmonary: Breath sounds clear to auscultation bilaterally, diminished bases, normal respiratory rate and effort GI: Abdomen obese, soft, non-distended, bowel sounds active : Voids Skin: Warm, dry Laboratory data: Recent Labs Lab Units 06/08/23 0003 06/07/23 0011 06/06/23 0814 WBC K/cumm 11.8* 11.2* 8.9 HEMOGLOBIN g/dL 10.9* 11.1* 10.7* HEMATOCRIT % 31.8* 33.1* 32.6* PLATELETS K/cumm 260 270 254 Recent Labs Lab Units 06/08/23 0003 06/07/23 0011 06/06/23 0814 SODIUM mmol/L 135 134* 137 POTASSIUM PLASMA mmol/L 3.5 3.7 3.6 CHLORIDE mmol/L 100 97 100 CO2 mmol/L 27 28 30 BUN SERUM mg/dL 16 8 7 CREATININE mg/dL 0.91 0.80 0.91 CALCIUM mg/dL 8.4* 8.5 8.4* Recent Labs Lab Units 06/05/23 1453 06/04/23 1137 06/04/23 0154 PROTIME (PT) sec 15.3* 15.6* 15.8* INR 1.34* 1.37* 1.39* APTT sec 32 -- 35 Recent Labs Lab Units 06/05/23 1119 06/04/23 0233 PH ART 7.33* 7.35 PCO2 ART mmHg -- 44 PO2 ART mmHg -- 73* PO2 ARTERIAL POC mmHg 146* -- BASE EXC ART mmol/L -- -1 Review of the laboratory data shows: Plan: Unless specified below, will continue to monitor/trend. Diagnostic review (radiology / micro / other): Review of CXR shows: Atelectasis Impression and Plan: Active problems/Diagnoses: Plans: Acute pain Following vascular surgery, pain is improving - Susan tylenol, Lopez, Robaxin - Start PO Oxy q4 Insomnia Nightmares Likely 2/2 frequent interruptions and hx of intense nightmares - Ramelteon - Seroquel - Sleep Hygiene - Decrease interruptions Type B Aortic Dissection S/p Cofield TBE stent Graft (05/02) Hypertension S/p TEVAR Hx of Lower Extremity transient paralysis With prior admission and TEVAR, patient experienced transient lower extremity paralysis w/o cause. 06/05: New graft within old graft that extends over distal portion of previous TEVAR graft that covers the new entry tear and stops above celiac artery.New uncovered stent graft to visceral aorta as the false lumen was compressing the true lumen. He is still filling false lumen. 06/07: Lumbar drain removed, Lower extremity strength 10/01 - ASA - Increase Coreg 25 mg BID - Start PO Hydral 50 q8 - SBP goal 140-160 - Titrate Clevidipine gtt as needed + PRN Hydralazine - Q2h NV checks - Will likely need open repair in the future - Dr Abarca following: young man with chronic aortic dissection (previously seen 04/2024) Acute Respiratory Insufficiency Remains on 2L NC. CXR demonstrating improving atelectasis - Pulmonary hygiene with IS, acapella, and C&DB - PT/OOBTC/AMB - Wean supplemental O2 for SpO2 > 92% Acute Kidney Injury (Resolved) Urinary Retention Bilateral Non Obstructing Nephrolithiasis Hypophosphatemia Cr decreasing, Cr stable, Likely 2/2 hypoperfusion - Avoid nephrotoxins, renally dose meds as appropriate - Optimize SBP for renal perfusion - Trend BMP - FBG Auto Constipation Patient w/o BM since surgery - Mag citrate - Suppository Acute Blood Loss Anemia Following surgery. Hgb stable 10-11, Plt > 150. Hemodynamically stable off vasopressors. - No current indication for transfusion, consider if patient becomes hemodynamically unstable with increased pressor requirements or Hgb < 8 and symptomatic - CBC daily Leukocytosis Likely inflammatory following procedure. WBC stable 11, Febrile. - No current indication for culture, POD2 ICU Care to Include: Restraints: NA DVT prophylaxis: SCDs, Lovenox PUD prophylaxis: NA Nutrition: ADAT Bowel regimen: Docusate, Miralax, &Senna Physical therapy/Activity: OOB/PT Goals of care: Full code Resolved problems: Updates: - Discussed w/ vascular surgery Dr. Granger. Ok to Transfer patient to OU, Continue NV q2 and [id number] Sreekanth Armstrong NP Critical Care Performed by: Sreekanth Armstrong NP Authorized by: Sreekanth Armstrong NP CRITICAL CARE: Team: 56 CTICU Shift: AM Level of Billing: Subsequent Hospital Visit Level [...] plan with the patient's team and other medical/health care consultant staff. This time was in addition [...] Mehul Brooks MD at 06/15/2023 8:25 AM CLOD PULLER PULLER PULLER PULLER * Roldan Campbell PA - 06/07/2023 7:53 PM CSTAssociated Order(s): Critical Care Post-Procedure Diagnose(s): Dissection of thoracoabdominal aorta (CMS/HCC) (HCC) CT ICU Daily Progress Shifts: NPP Shift Options: 8300 PM 1 Subjective Patient is a 33 y.o. 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 Overnight events: - No acute events overnight ICU course: 06/04: Admit for hypertensive urgency and bilat flank 4-5 days; renal doppler NL, esmolol & cardene infusions, hutton placement 06/05: TEVAR: L groin access, placed new graft within old graft that extends over distal portion of previous TEVAR graft that covers the new entry tear and stops above celiac artery. Placement of new uncovered stent graft to visceral aorta as the false lumen was compressing the true lumen. He is still filling false lumen. Lumbar drain in place 06/07: Lumbar drain removed, 5/ strength to BLE Objective Medications: Scheduled Meds:acetaminophen, 1,000 mg, oral, Q6H SUSAN aspirin, 81 mg, oral, Daily carvediloL, 12.5 mg, oral, BID with meals (bkfst, dinner) docusate sodium, 100 mg, oral, BID gabapentin, 300 mg, oral, TID [START ON 06/08/2023] heparin, 5,000 Units, subcutaneous, Q8H SUSAN methocarbamoL, 750 mg, oral, TID polyethylene glycol, 17 g, oral, BID potassium chloride ER, 40 mEq, oral, Once QUEtiapine, 50 mg, oral, Nightly senna, 1 tablet, oral, BID sodium chloride 0.9%, 0.5-20 mL, intra-catheter, Q8H SUSAN tamsulosin, 0.8 mg, oral, Daily with dinner Continuous Infusions:clevidipine, 0-32 mg/hr, Last Rate: 10 mg/hr (06/07/231899) Lactated Ringer's, 10 mL/hr, Last Rate: Stopped (06/07/23926) sodium chloride 0.9%, 3-12 mL/hr, Last Rate: 3 mL/hr (06/07/231899) Vitals: Temp: [36.6 ??C (97.9 ??F)-38.7 ??C (101.7 ??F)] 36.7 ??C (98.1 ??F) Pulse: [85-122] 111 BP: (111-163)/(67-81) 147/67 Resp: [8-26] 17 SpO2: [93 %-99 %] 96 % Arterial Line BP: (116-196)/(48-82) 136/52 Fluid balance: I/O this shift: In: 23 [I.V.:23] Out: - Intake/Output Summary (Last 24 hours) at 06/07/20231952 Last data filed at 06/07/20231899 Gross per 24 hour Intake 1656.51 ml Output 1535 ml Net 121.51 ml Ventilator settings: Hemodynamic parameters: PAP: -- CVP: -- PCWP: -- CO: -- CI: -- SVO2: -- Pacemaker Overdrive Pacing: -- Cardiac Rhythm: Normal sinus rhythm (06/07 1899) Pacer Mode: -- Physical exam: Neuro: Alert, oriented, able to follow simple commands, PERRL 3mm, CAM (-), Equal 5/5 strength in lower extremities Cardiovascular: RRR, periphery warm with palpable pulses, no significant edema Pulmonary: Breath sounds clear to auscultation bilaterally, diminished bases, normal respiratory rate and effort GI: Abdomen obese, soft, non-distended, bowel sounds active : Voiding Skin: Warm, dry Laboratory data: Recent Labs Lab Units 06/07/23 0011 06/06/23 0814 06/06/23 0006 WBC K/cumm 11.2* 8.9 9.0 HEMOGLOBIN g/dL 11.1* 10.7* 10.2* HEMATOCRIT % 33.1* 32.6* 30.0* PLATELETS K/cumm 270 254 259 Recent Labs Lab Units 06/07/23 0011 06/06/23 0814 06/06/23 0006 SODIUM mmol/L 134* 137 141 POTASSIUM PLASMA mmol/L 3.7 3.6 3.4 CHLORIDE mmol/L 97 100 103 CO2 mmol/L 28 30 28 BUN SERUM mg/dL 8 7 9 CREATININE mg/dL 0.80 0.91 1.13 CALCIUM mg/dL 8.5 8.4* 8.8 Recent Labs Lab Units 06/05/23 1453 06/04/23 1137 06/04/23 0154 PROTIME (PT) sec 15.3* 15.6* 15.8* INR 1.34* 1.37* 1.39* APTT sec 32 -- 35 Recent Labs Lab Units 06/05/23 1119 06/04/23 0233 PH ART 7.33* 7.35 PCO2 ART mmHg -- 44 PO2 ART mmHg -- 73* PO2 ARTERIAL POC mmHg 146* -- BASE EXC ART mmol/L -- -1 Review of the laboratory data shows: Plan: Unless specified below, will continue to monitor/trend. 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 He is still filling false lumen. 06/07: Lumbar drain removed at 1600. 5/5 strength - Start ASA post LD removal - SBP goal 140-160 - Titrate Clevidipine gtt as needed + PRN Hydralazine - Q1h NV checks - Will likely need open repair in the future - Dr Abarca following: young man with chronic aortic dissection (previously seen 04/2024) - Pseudo Aneurysm US, Groin tenderness - SQH order placed for 0600 Acute Respiratory Insufficiency Remains on 2L NC. - Pulmonary hygiene with IS, acapella, and C&DB - PT/OOBTC/AMB - Wean supplemental O2 for SpO2 > 92% Acute Kidney Injury (Resolved) Urinary Retention Bilateral Non Obstructing Nephrolithiasis Hypophosphatemia Cr decreasing, Now 0.8, Likely 2/2 hypoperfusion - Avoid nephrotoxins, renally dose meds as appropriate - Optimize SBP for renal perfusion - Trend BMP - FBG Auto Acute Blood Loss Anemia Following surgery. Hgb increasing 10-11, Plt > 150. Hemodynamically stable off vasopressors. - No current indication for transfusion, consider if patient becomes hemodynamically unstable with increased pressor requirements or Hgb < 8 and symptomatic - CBC daily Fever Leukocytosis Likely inflammatory following procedure. WBC increasing 11.1, Febrile. Tmax 38.7 - No current indication for culture, POD2 - Finished periop antibiotics to completion ICU Care to Include: Restraints: NA DVT prophylaxis: SCDs, Start DVT ppx post LD removal PUD prophylaxis: NA Nutrition: ADAT Bowel regimen: Docusate, Miralax, &Senna Physical therapy/Activity: OOB/PT when able to participate Goals of care: Full code Resolved problems: SANCHEZ Dumont Critical Care Performed by: Roldan Campbell PA Authorized by: Roldan Campbell PA CRITICAL CARE: Team: 83 CTICU Shift: [...] plan with the ICU team and other medical/health care consultant staff, making frequent assessments and decisions [...] Mehul Brooks MD at 06/15/2023 8:28 AM CLOD PULLER PULLER PULLER * Kathryn Granger MD - 06/07/2023 4:01 PM CST Vascular Surgery Daily Progress Patient Name/MRN: Eriberto Chau [id number] Treatment Team: Vascular Surgery- Pager: [phone] Attending: Nikhil Samuel MD Today's Date: 06/07/2023 Room/Bed: [id number] Admit Date: 06/03/2023 Code Status: Full Code Subjective Chief complaint: Abdominal Pain Events During This Hospitalization: 06/03/23: Admitted to CTICU for impulse control Events Over Last 24 Hours: Lumbar drain clamped yesterday afternoon without issue Tolerating diet Objective Vitals: 24hr Min/Max: Temp Min: 36.9 ??C (98.4 ??F) Max: 38.7 ??C (101.7 ??F) Pulse Min: 85 Max: 106 BP Min: 111/78 Max: 155/69 Resp Min: 8 Max: 28 SpO2 Min: 93 % Max: 99 % Most Recent : Vitals: 06/07/23 1530 BP: Pulse: 91 Resp: 18 Temp: SpO2: 96% I/O last 2 completed shifts: In: 2158 [P.O.:1320; I.V.:818; IV Piggyback:20] Out: 2530 [Urine:2435] I/O this shift: In: 706.4 [P.O.:480; I.V.:226.4] Out: 460 [Urine:460] Physical Exam: GENERAL: AAOx3, NAD RESPIRATORY: Good respiratory effort. Non-labored respirations. CARDIOVASCULAR: Regular rate and rhythm GASTROINTESTINAL: Soft, NT, ND MUSCULOSKELETAL: normal ROM and strength VASCULAR: palpable DP bilaterally. L groin access site c/d/i, appropriately tender Lab/Radiology/Diagnostic Review: Labs and imaging from the last 24 hours personally reviewed. Assessment/Plan Principal Problem: Dissection of abdominal aorta (CMS/HCC) (HCC) 33-year-old male with complicated type B aortic dissection who underwent placement of Cofield TBE on 05/02/23 who presents with abdominal pain and concern for progression of dissection on CT, now s/p TEVAR extension and dissection stent placementon 06/05/23 - SBP 140-160 - remove lumbar drain today - q1h neurovascular checks - ok to start transitioning to PO antiHTN and wean clevidipine - diet as tolerated - hgb >10 - L groin duplex today Kathryn Granger Vascular Surgery Fellow Pager: [phone] Cosigned by Nikhil Samuel MD at 06/08/2023 4:22 PM CLOD PULLER PULLER PULLER * Sreekanth Armstrong NP - 06/07/2023 6:19 AM CSTAssociated Order(s): Critical Care Post-Procedure Diagnose(s): Dissection of abdominal aorta (CMS/HCC) (HCC) CT ICU Daily Progress Shifts: NPP Shift Options: CTI AM 8200 2 Subjective Patient is a 33 y.o. 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 Overnight events: - No acute events overnight ICU course: 06/04: Admit for hypertensive urgency and bilat flank 4-5 days; renal doppler NL, esmolol & cardene infusions, hutton placement 06/05: TEVAR: L groin access, placed new graft within old graft that extends over distal portion of previous TEVAR graft that covers the new entry tear and stops above celiac artery. Placement of new uncovered stent graft to visceral aorta as the false lumen was compressing the true lumen. He is still filling false lumen. Lumbar drain in place Objective Medications: Scheduled Meds:acetaminophen, 1,000 mg, oral, Q6H SUSAN docusate sodium, 100 mg, oral, BID gabapentin, 300 mg, oral, TID methocarbamoL, 750 mg, oral, TID polyethylene glycol, 17 g, oral, Daily potassium chloride ER, 40 mEq, oral, Once potassium, sodium phosphates, 2 packet, oral, TID AC senna, 1 tablet, oral, BID sodium chloride 0.9%, 0.5-20 mL, intra-catheter, Q8H SUSAN tamsulosin, 0.8 mg, oral, Daily with dinner Continuous Infusions:clevidipine, 0-32 mg/hr, Last Rate: 10 mg/hr (06/07/23599) HYDROmorphone, , Last Rate: 0 mg/hr (06/07/23 0126) Lactated Ringer's, 10 mL/hr, Last Rate: 10 mL/hr (06/07/23599) sodium chloride 0.9%, 3-12 mL/hr, Last Rate: 3 mL/hr (06/07/23599) Vitals: Temp: [36.6 ??C (97.9 ??F)-38.7 ??C (101.7 ??F)] 38.6 ??C (101.5 ??F) Pulse: [78-106] 99 Resp: [8-28] 15 SpO2: [85 %-100 %] 93 % Arterial Line BP: (114-185)/(51-77) 170/70 Fluid balance: I/O this shift: In: 378 [I.V.:378] Out: 565 [Urine:565] Intake/Output Summary (Last 24 hours) at 06/07/2023 0619 Last data filed at 06/07/2023 0600 Gross per 24 hour Intake 2158 ml Output 2530 ml Net -372 ml Ventilator settings: Hemodynamic parameters: PAP: -- CVP: -- PCWP: -- CO: -- CI: -- SVO2: -- Pacemaker Overdrive Pacing: -- Cardiac Rhythm: Normal sinus rhythm (06/07 599) Pacer Mode: -- Physical exam: Neuro: Alert, oriented, able to follow simple commands, PERRL 3mm, CAM (-), Equal 5/5 strength in lower extremities Cardiovascular: RRR, periphery warm with palpable pulses, no significant edema Pulmonary: Breath sounds clear to auscultation bilaterally, diminished bases, normal respiratory rate and effort GI: Abdomen obese, soft, non-distended, bowel sounds active : Hutton in place draining clear yellow urine Skin: Warm, dry Laboratory data: Recent Labs Lab Units 06/07/23 00106/06/23 0814 06/06/23 0006 WBC K/cumm 11.2* 8.9 9.0 HEMOGLOBIN g/dL 11.1* 10.7* 10.2* HEMATOCRIT % 33.1* 32.6* 30.0* PLATELETS K/cumm 270 254 259 Recent Labs Lab Units 06/07/23 0011 06/06/23 0814 06/06/23 0006 SODIUM mmol/L 134* 137 141 POTASSIUM PLASMA mmol/L 3.7 3.6 3.4 CHLORIDE mmol/L 97 100 103 CO2 mmol/L 28 30 28 BUN SERUM mg/dL 8 7 9 CREATININE mg/dL 0.80 0.91 1.13 CALCIUM mg/dL 8.5 8.4* 8.8 Recent Labs Lab Units 06/05/23 1453 06/04/23 1137 06/04/23 0154 PROTIME (PT) sec 15.3* 15.6* 15.8* INR 1.34* 1.37* 1.39* APTT sec 32 -- 35 Recent Labs Lab Units 06/05/23 1119 06/04/23 0233 PH ART 7.33* 7.35 PCO2 ART mmHg -- 44 PO2 ART mmHg -- 73* PO2 ARTERIAL POC mmHg 146* -- BASE EXC ART mmol/L -- -1 Review of the laboratory data shows: Plan: Unless specified below, will continue to monitor/trend. 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 He is still filling false lumen. - Start ASA post LD removal - SBP goal 140-160 - Titrate Clevidipine gtt as needed + PRN Hydralazine - Lumbar drain clamped, Plan for removal today - Q1h NV checks - Will likely need open repair in the future - Dr Abarca following: young man with chronic aortic dissection (previously seen 04/2024) - Pseudo Aneurysm US, Groin tenderness Acute Respiratory Insufficiency Remains on 2L NC. CXR demonstrating improving atelectasis - Pulmonary hygiene with IS, acapella, and C&DB - PT/OOBTC/AMB - Wean supplemental O2 for SpO2 > 92% Acute Kidney Injury (Resolved) Urinary Retention Bilateral Non Obstructing Nephrolithiasis Hypophosphatemia Cr decreasing, Now 0.8, Likely 2/2 hypoperfusion - Avoid nephrotoxins, renally dose meds as appropriate - Optimize SBP for renal perfusion - Trend BMP - FBG Auto Acute Blood Loss Anemia Following surgery. Hgb increasing 10-11, Plt > 150. Hemodynamically stable off vasopressors. - No current indication for transfusion, consider if patient becomes hemodynamically unstable with increased pressor requirements or Hgb < 8 and symptomatic - CBC daily Fever Leukocytosis Likely inflammatory following procedure. WBC increasing 11.1, Febrile. Tmax 38.7 - No current indication for culture, POD2 - Finished periop antibiotics to completion ICU Care to Include: Restraints: NA DVT prophylaxis: SCDs, Start DVT ppx post LD removal PUD prophylaxis: NA Nutrition: ADAT Bowel regimen: Docusate, Miralax, &Senna Physical therapy/Activity: OOB/PT when able to participate Goals of care: Full code Resolved problems: Updates: - L groin US: No pseudoaneurysm or arteriovenous fistula of the left groin. - LD removed--> Continue monitoring LE for weakness, Hold on PO antihypertensives w/ hx Sreekanth Armstrong NP Critical Care Performed by: [...] plan with the ICU team and other medical/health care consultant staff, making frequent assessments and decisions [...] Mehul Brooks MD at 06/15/2023 8:25 AM CLOD PULLER PULLER PULLER PULLER * Ferny Benny, NP - 06/06/2023 6:30 PM CSTAssociated Order(s): Critical Care Post-Procedure Diagnose(s): Dissection of abdominal aorta (CMS/HCC) (HCC) Surgical ICU Daily Progress Team: 8200 PM Subjective Patient is a 33 y.o. male admitted on 06/03/2023 6:25 PM with Thoracoabdominal dissection s/p TEVAR w/ concern for progression of dissection. Interval History: - Phos and K+ optimized - Poor sleep with nightmares; consider starting sleep agent tomorrow night - Reviewed and ordered pertinent laboratory tests. Reviewed any radiological imaging pertinent to patients current treatments. Constant evaluation of I/O's, vitals and oxygen requirements throughout shift. Multiple bedside evaluations of patients status. Hospital Course: 06/04: Admit for hypertensive urgency and bilat flank 4-5 days; renal doppler NL, esmolol & cardene infusions, hutton placement 06/05: TEVAR: L groin access, placed new graft within old graft that extends over distal portion of previous TEVAR graft that covers the new entry tear and stops above celiac artery. Placement of new uncovered stent graft to visceral aorta as the false lumen was compressing the true lumen. He is still filling false lumen. Lumbar drain in place Objective Physical Exam Neuro: A&Ox4, follows commands, moves all extremities well, PERRL Cardiac: RRR, S1S2 Pulmonary: Lungs clear to auscultation, respirations even/unlabored Abdominal: Soft, tender to palpation, nondistended, normoactive bowel sounds Extremities: palpable pulses, warm, dry Drains: Hutton Medications Scheduled Meds:acetaminophen, 1,000 mg, oral, Q6H SUSAN docusate sodium, 100 mg, oral, BID gabapentin, 300 mg, oral, TID methocarbamoL, 750 mg, oral, TID polyethylene glycol, 17 g, oral, Daily potassium chloride ER, 40 mEq, oral, Once potassium, sodium phosphates, 2 packet, oral, TID AC senna, 1 tablet, oral, BID sodium chloride 0.9%, 0.5-20 mL, intra-catheter, Q8H SUSAN tamsulosin, 0.8 mg, oral, Daily with dinner Continuous Infusions:clevidipine, 0-32 mg/hr, Last Rate: 16 mg/hr (06/07/23 0000) HYDROmorphone, , Last Rate: Stopped (06/07/23 0126) Lactated Ringer's, 10 mL/hr, Last Rate: 10 mL/hr (06/07/23) sodium chloride 0.9%, 3-12 mL/hr, Last Rate: 3 mL/hr (06/07/23) PRN Meds:.??? sodium chloride 0.9% ??? sodium chloride 0.9% ??? hydrALAZINE ??? naloxone ??? ondansetron ??? prochlorperazine ??? sodium chloride ??? sodium chloride 0.9% Vital signs for last 24 hours: Temp: [36.6 ??C (97.9 ??F)-38.4 ??C (101.1 ??F)] 38.4 ??C (101.1 ??F) Pulse: [78-102] 102 Resp: [8-28] 20 SpO2: [85 %-100 %] 97 % Arterial Line BP: (114-175)/(51-72) 166/59 Lab/Radiology/Diagnostic Review: Laboratory review: Lab results in the last 24 hours: Recent Results (from the past 24 hour(s)) Basic metabolic panel Collection Time: 06/06/23 8:14 AM Result Value Ref Range Sodium 137 135 - 145 mmol/L Potassium, pl 3.6 3.3 - 4.9 mmol/L Chloride 100 97 - 110 mmol/L CO2 30 22 - 32 mmol/L Anion gap 7 2 - 15 mmol/L BUN 7 6 - 25 mg/dL Creatinine 0.91 0.80 - 1.30 mg/dL Glucose 97 70 - 199 mg/dL Calcium 8.4 (L) 8.5 - 10.3 mg/dL CBC without differential Collection Time: 06/06/23 8:14 AM Result Value Ref Range WBC 8.9 3.8 - 9.9 K/cumm Hgb 10.7 (L) 13.0 - 17.5 g/dL Hct 32.6 (L) 38.9 - 50.3 % Plt 254 150 - 400 K/cumm MPV 8.9 (L) 9.1 - 12.3 fL RBC 3.74 (L) 4.30 - 5.80 M/cumm MCV 87.2 81.3 - 96.4 fL MCH 28.6 27.1 - 33.3 pg MCHC 32.8 32.3 - 35.7 g/dL RDW CV 13.4 11.1 - 14.9 % RDW SD 42.4 35.7 - 48.1 fL NRBC abs 0.00 0.00 - 0.01 K/cumm eGFR Collection Time: 06/06/23 8:14 AM Result Value Ref Range eGFR >90 >=60 mL/min/1.73 m2 Magnesium Collection Time: 06/07/23 12:11 AM Result Value Ref Range Magnesium 2.1 1.4 - 2.5 mg/dL Phosphorus Collection Time: 06/07/23 12:11 AM Result Value Ref Range Phosphorus, pl 2.0 (L) 2.3 - 4.5 mg/dL CBC without differential Collection Time: 06/07/23 12:11 AM Result Value Ref Range WBC 11.2 (H) 3.8 - 9.9 K/cumm Hgb 11.1 (L) 13.0 - 17.5 g/dL Hct 33.1 (L) 38.9 - 50.3 % Plt 270 150 - 400 K/cumm MPV 9.3 9.1 - 12.3 fL RBC 3.82 (L) 4.30 - 5.80 M/cumm MCV 86.6 81.3 - 96.4 fL MCH 29.1 27.1 - 33.3 pg MCHC 33.5 32.3 - 35.7 g/dL RDW CV 13.4 11.1 - 14.9 % RDW SD 42.0 35.7 - 48.1 fL NRBC abs 0.00 0.00 - 0.01 K/cumm Basic metabolic panel Collection Time: 06/07/23 12:11 AM Result Value Ref Range Sodium 134 (L) 135 - 145 mmol/L Potassium, pl 3.7 3.3 - 4.9 mmol/L Chloride 97 97 - 110 mmol/L CO2 28 22 - 32 mmol/L Anion gap 9 2 - 15 mmol/L BUN 8 6 - 25 mg/dL Creatinine 0.80 0.80 - 1.30 mg/dL Glucose 114 70 - 199 mg/dL Calcium 8.5 8.5 - 10.3 mg/dL eGFR Collection Time: 06/07/23 12:11 AM Result Value Ref Range eGFR >90 >=60 mL/min/1.73 m2 Assessment/Plan Principal Problem: Dissection of abdominal aorta (CMS/HCC) (HCC) NEURO: #Acute Pain: - Continue scheduled Tylenol, Robaxin and Gabapentin - Dilaudid TALENT DEVELOPMENT MANAGER; 0.5mg q10 min CV: # Type B Aortic Dissection s/p Cofield TBE stent graft 05/02 # C/f progression of dissection on CT - Presented to the ED with abdominal and flank pain; found to be HTN with SBPs 180s-190s - CTA w/ unchanged stenosis of the left subclavian artery stent. Continued increase in size of false lumen and decreased thrombus within the false lumen at the level of the descending thoracic aorta just distal to the stent graft. Increasing contrast opacification of the false lumen likely from fenestration at the level of the diaphragmatic hiatus and renal arteries. - 06/05: TEVAR: L groin access, placed new graft within old graft that extends over distal portion ofprevious TEVAR graft that covers the new entry tear and stops above celiac artery. Placement of newuncovered stent graft to visceral aorta as the false lumen was compressing the true lumen. He is still filling false lumen. Lumbar drain in place - SBP goal 140-160; Clevidipine gtt as needed + PRN Hydralazine - Lumbar drain clamped - Q1h NV checks - Per Vascular; hold home anti-hypotensives - Will likely need open repair at some point - Reached out to Dr Abarca re: young man with chronic aortic dissection (previously seen 04/2024) --> will see patient PULM: # Acute respiratory insufficiency - Currently on 2L NC; encourage pulm hygiene - OOBTC in AM GI: Diet: Regular diet Bowel regimen: senna, colace, miralax ENDO: Euglycemia RENAL: Cr Lab Results Component Value Date CREATININE 0.80 06/07/2023 # ANGI # Urinary retention # Bilateral non obstructing nephrolithiasis - Hutton in place - Continue Flomax - 06/04 Renal arterial dopplers: Pulsatile arterial waveforms in the bilateral renal arteries withoutevidence of renal artery occlusion # Hypophosphatemia - Packets ordered HEME: Lab Results Component Value Date HGB 11.1 (L) 06/07/2023 #ABLA - No s/s bleeding, no indication for transfusion, continue to monitor closely ID: Lab Results Component Value Date WBC 11.2 (H) 06/07/2023 # Leukocytosis - Tmax 38.6; likely post-operative fever - Monitor WBC and fever curve - No abx Intensive Care Unit Standards of Care: Restraints: n/a DVT prophylaxis: SCDs Vascular access: PIV, KYRA, arterial line Goals of care: Full code Critical Care Performed by: Benny Isaacs NP Authorized by: Benny Isaacs NP CRITICAL CARE: Team: 83 CTICU Shift: [...] plan with the ICU team and other medical/health care consultant staff, making frequent assessments and decisions [...] Cosigned by Mehul Brooks MD at 06/15/2023 8:24 AM CLOD PULLER PULLER PULLER * Kathryn Granger MD - 06/06/2023 10:08 AM CST Vascular Surgery Daily Progress Patient Name/MRN: Eriberto Chau [id number] Treatment Team: Vascular Surgery- Pager: [phone] Attending: Nikhil Samuel MD Today's Date: 06/06/2023 Room/Bed: [place] [id number] Admit Date: 06/03/2023 Code Status: Full Code Subjective Chief complaint: Abdominal Pain Events During This Hospitalization: 06/03/23: Admitted to CTICU for impulse control Events Over Last 24 Hours: OR yesterday for TEVAR and placement of dissection stent Abdominal pain resolved Some tenderness at L groin access site 5/5 strength BLEs Objective Vitals: 24hr Min/Max: Temp Min: 36.3 ??C (97.4 ??F) Max: 37.1 ??C (98.8 ??F) Pulse Min: 77 Max: 94 Resp Min: 8 Max: 22 SpO2 Min: 93 % Max: 100 % Most Recent : Vitals: 06/06/23 0925 BP: Pulse: 81 Resp: 11 Temp: SpO2: 96% I/O last 2 completed shifts: In: 4401.5 [I.V.:2546.5; Blood:925; IV Piggyback:930] Out: 6398 [Urine:6015; Blood:150] I/O this shift: In: 98.5 [I.V.:98.5] Out: 852 [Urine:825] Physical Exam: GENERAL: AAOx3, NAD RESPIRATORY: Good respiratory effort. Non-labored respirations. CARDIOVASCULAR: Regular rate and rhythm GASTROINTESTINAL: Soft, NT, ND MUSCULOSKELETAL: normal ROM and strength VASCULAR: palpable DP bilaterally. L groin access site c/d/i, appropriately tender Lab/Radiology/Diagnostic Review: Labs and imaging from the last 24 hours personally reviewed. Assessment/Plan Principal Problem: Dissection of abdominal aorta (CMS/HCC) (HCC) 33-year-old male with complicated type B aortic dissection who underwent placement of Cofield TBE on 05/02/23 who presents with abdominal pain and concern for progression of dissection on CT, now s/p TEVAR extension and dissection stent placementon 06/05/23 - SBP 140-160 - clamp lumbar drain this afternoon ~3pm - q1h neurovascular checks - hold on transitioning to PO antiHTN, given LD clamping today - ok for CLD, advance as tolerated - ok for DVT ppx today, hold tomorrow in anticipation of possible LD removal - hgb >10 Kathryn Granger Vascular Surgery Fellow Pager: [phone] Cosigned by Nikhil Samuel MD at 06/08/2023 4:22 PM CLOD PULLER PULLER PULLER * Vianey Sheila Tiffanie, NP - 06/06/2023 7:00 AM CSTAssociated Order(s): Critical Care Post-Procedure Diagnose(s): Dissection of abdominal aorta (CMS/HCC) (HCC) Surgical ICU Daily Progress Team: 8200 AM Subjective Patient is a 33 y.o. male admitted on 06/03/2023 6:25 PM with Thoracoabdominal dissection s/p TEVAR w/ concern for progression of dissection. Interval History: - Acapella therapy QID - Per Vascular, clamp lumbar drain 1500 - OK to OOBTC with LD clamped, do not ambulate - Per Vascular, ADAT - Per Vascular, hold PO meds for HTN today - 2 doses SQH in prep for hopeful d/c lumbar drain 06/07 - Reach out to Dr Abarca re: young man with chronic aortic dissection (previously seen 04/2024) --> will see patient - Labs to daily - Reviewed and ordered pertinent laboratory tests. Reviewed any radiological imaging pertinent to patients current treatments. Constant evaluation of I/O's, vitals and oxygen requirements throughout shift. Multiple bedside evaluations of patients status. Hospital Course: 06/04: Admit for hypertensive urgency and bilat flank 4-5 days; renal doppler NL, esmolol & cardene infusions, hutton placement 06/05: TEVAR: L groin access, placed new graft within old graft that extends over distal portion of previous TEVAR graft that covers the new entry tear and stops above celiac artery. Placement of new uncovered stent graft to visceral aorta as the false lumen was compressing the true lumen. He is still filling false lumen. Lumbar drain in place Objective Physical Exam Neuro: A&Ox4, follows commands, moves all extremities well, PERRL Cardiac: RRR, S1S2 Pulmonary: Lungs clear to auscultation, respirations even/unlabored Abdominal: Soft, tender to palpation, nondistended, normoactive bowel sounds Extremities: palpable pulses, warm, dry, L groin incision soft approximated Drains: Hutton, lumbar drain with straw colored output Medications Scheduled Meds:acetaminophen, 1,000 mg, oral, Q6H SUSAN [Held by Provider] amLODIPine, 10 mg, oral, Daily [Held by Provider] carvediloL, 50 mg, oral, BID with meals (bkfst, dinner) ceFAZolin, 2,000 mg, intravenous, Q8H SUSAN docusate sodium, 100 mg, oral, BID Or docusate, 100 mg, feeding tube, BID gabapentin, 300 mg, oral, TID methocarbamoL, 750 mg, oral, TID polyethylene glycol, 17 g, oral, Daily potassium chloride, 20 mEq, intravenous, Once senna, 1 tablet, oral, BID Or senna, 8.8 mg, feeding tube, BID sodium chloride 0.9%, 0.5-20 mL, intra-catheter, Q8H SUSAN tamsulosin, 0.8 mg, oral, Daily with dinner Continuous Infusions:clevidipine, 0-32 mg/hr, Last Rate: 10 mg/hr (06/06/23615) HYDROmorphone, , Last Rate: 0 mg/hr (06/05/23924) Lactated Ringer's, 10 mL/hr, Last Rate: 10 mL/hr (06/06/23599) sodium chloride 0.9%, 3-12 mL/hr, Last Rate: 3 mL/hr (06/06/23599) PRN Meds:. sodium chloride 0.9% sodium chloride 0.9% naloxone ondansetron prochlorperazine sodium chloride 0.9% Vital signs for last 24 hours: Temp: [36.3 ??C (97.4 ??F)-37.1 ??C (98.8 ??F)] 37.1 ??C (98.8 ??F) Pulse: [71-94] 82 BP: (110)/(56) 110/56 Resp: [8-22] 21 SpO2: [93 %-100 %] 96 % Arterial Line BP: (100-195)/(45-87) 143/65 Lab/Radiology/Diagnostic Review: Laboratory review: Lab results in the last 24 hours: Recent Results (from the past 24 hour(s)) Prepare RBC: 4 Units Collection Time: 06/05/23 7:54 AM Result Value Ref Range Product code [id number] Unit Number [id number] Product Blood Type APOS Dispense Status PRESUMED TRANSFUSED Product code [id number] Unit Number [id number] Product Blood Type APOS Dispense Status PRESUMED TRANSFUSED Product code [id number] Unit Number [id number] Product Blood Type APOS Dispense Status CROSSMATCHED Product code [id number] Unit Number [id number] Product Blood Type APOS Dispense Status PRESUMED TRANSFUSED POC Blood Gas and Chemistries, Arterial - Collection Time: 06/05/23 11:19 AM Result Value Ref Range pH, Art POC 7.33 (L) 7.35 - 7.45 pCO2, Art POC 43 35 - 45 mmHg pO2, Art POC 146 (H) 83 - 108 mmHg Na, POC 139 135 - 145 mmol/L K POC 4.5 3.3 - 4.9 mmol/L Cl, POC 108 97 - 110 mmol/L Ionized Ca, POC 4.70 4.50 - 5.10 mg/dL Glucose, POC 115 70 - 199 mg/dL Lactate, POC 1.8 0.7 - 2.2 mmol/L SO2 (natalia) arterial 100 (H) 90 - 95 % Base excess, POC -3.1 mmol/L HCO3, Art POC 23 20 - 30 mmol/L Hct, POC 24.0 (L) 41.4 - 51.6 % O2 Sat, Art POC (Calc) 99 % Total Hb, POC 7.9 (L) 13.8 - 17.2 g/dL POCT Activated clotting time, low range Collection Time: 06/05/23 11:27 AM Result Value Ref Range ACT 250 (H) 123 - 168 sec POC Performer [id number] POC Device Number [id number] POCT Activated clotting time, low range Collection Time: 06/05/23 11:49 AM Result Value Ref Range ACT 244 (H) 123 - 168 sec POC Performer [id number] POC Device Number [id number] POCT Activated clotting time, low range Collection Time: 06/05/23 12:29 PM Result Value Ref Range ACT 219 (H) 123 - 168 sec POC Performer [id number] POC Device Number [id number] POCT Activated clotting time, low range Collection Time: 06/05/23 12:42 PM Result Value Ref Range ACT 150 123 - 168 sec POC Performer [id number] POC Device Number [id number] CBC with auto differential Collection Time: 06/05/23 1:34 PM Result Value Ref Range WBC 12.5 (H) 3.8 - 9.9 K/cumm Hgb 10.4 (L) 13.0 - 17.5 g/dL Hct 31.7 (L) 38.9 - 50.3 % Plt 267 150 - 400 K/cumm MPV 8.8 (L) 9.1 - 12.3 fL RBC 3.59 (L) 4.30 - 5.80 M/cumm MCV 88.3 81.3 - 96.4 fL MCH 29.0 27.1 - 33.3 pg MCHC 32.8 32.3 - 35.7 g/dL RDW CV 13.4 11.1 - 14.9 % RDW SD 43.4 35.7 - 48.1 fL NRBC abs 0.00 0.00 - 0.01 K/cumm Basic metabolic panel Collection Time: 06/05/23 1:34 PM Result Value Ref Range Sodium 139 135 - 145 mmol/L Potassium, pl 4.0 3.3 - 4.9 mmol/L Chloride 104 97 - 110 mmol/L CO2 23 22 - 32 mmol/L Anion gap 12 2 - 15 mmol/L BUN 14 6 - 25 mg/dL Creatinine 1.71 (H) 0.80 - 1.30 mg/dL Glucose 90 70 - 199 mg/dL Calcium 8.7 8.5 - 10.3 mg/dL Magnesium Collection Time: 06/05/23 1:34 PM Result Value Ref Range Magnesium 2.1 1.4 - 2.5 mg/dL Phosphorus Collection Time: 06/05/23 1:34 PM Result Value Ref Range Phosphorus, pl 5.8 (H) 2.3 - 4.5 mg/dL Differential, auto Collection Time: 06/05/23 1:34 PM Result Value Ref Range Neutrophil abs 10.3 (H) 1.5 - 6.5 K/cumm Imm gran abs 0.3 (H) 0.0 - 0.1 K/cumm Lymphocyte abs 1.3 0.8 - 3.3 K/cumm Monocyte abs 0.5 0.2 - 0.8 K/cumm Eosinophil abs 0.1 0.0 - 0.5 K/cumm Basophil abs 0.0 0.0 - 0.1 K/cumm Neutrophil pct 82.4 % Imm gran pct 2.6 % Lymphocyte pct 10.5 % Monocyte pct 3.8 % Eosinophil pct 0.5 % Basophil pct 0.2 % eGFR Collection Time: 06/05/23 1:34 PM Result Value Ref Range eGFR 54 (L) >=60 mL/min/1.73 m2 Protime-INR Collection Time: 06/05/23 2:53 PM Result Value Ref Range PT 15.3 (H) 10.3 - 13.7 sec INR 1.34 (H) 0.90 - 1.20 aPTT Collection Time: 06/05/23 2:53 PM Result Value Ref Range aPTT 32 28 - 38 sec CBC without differential Collection Time: 06/06/23 12:06 AM Result Value Ref Range WBC 9.0 3.8 - 9.9 K/cumm Hgb 10.2 (L) 13.0 - 17.5 g/dL Hct 30.0 (L) 38.9 - 50.3 % Plt 259 150 - 400 K/cumm MPV 9.1 9.1 - 12.3 fL RBC 3.47 (L) 4.30 - 5.80 M/cumm MCV 86.5 81.3 - 96.4 fL MCH 29.4 27.1 - 33.3 pg MCHC 34.0 32.3 - 35.7 g/dL RDW CV 13.6 11.1 - 14.9 % RDW SD 42.5 35.7 - 48.1 fL NRBC abs 0.00 0.00 - 0.01 K/cumm Magnesium Collection Time: 06/06/23 12:06 AM Result Value Ref Range Magnesium 1.9 1.4 - 2.5 mg/dL Phosphorus Collection Time: 06/06/23 12:06 AM Result Value Ref Range Phosphorus, pl 3.1 2.3 - 4.5 mg/dL eGFR Collection Time: 06/06/23 12:06 AM Result Value Ref Range eGFR 89 >=60 mL/min/1.73 m2 Basic metabolic panel Collection Time: 06/06/23 12:06 AM Result Value Ref Range Sodium 141 135 - 145 mmol/L Potassium, pl 3.4 3.3 - 4.9 mmol/L Chloride 103 97 - 110 mmol/L CO2 28 22 - 32 mmol/L Anion gap 10 2 - 15 mmol/L BUN 9 6 - 25 mg/dL Creatinine 1.13 0.80 - 1.30 mg/dL Glucose 100 70 - 199 mg/dL Calcium 8.8 8.5 - 10.3 mg/dL Assessment/Plan Principal Problem: Dissection of abdominal aorta (CMS/HCC) (FORMERLY [facility]) NEURO: #Acute Pain: - Continue scheduled Tylenol, Robaxin and Gabapentin - Dilaudid TALENT DEVELOPMENT MANAGER; 0.5mg q10 min - Pain goal < 4 CV: #Type B Aortic Dissection s/p Cofield TBE stent 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 Continued increase in size of false lumen and decreased thrombus within the false lumen at the level of the descending thoracic aorta just distal to the stent graft. Increasing contrast opacification of the false lumen likely from fenestration at the level of the diaphragmatic hiatus and renal arteries. - 06/05: TEVAR: L groin access, placed new graft within old graft that extends over distal portion ofprevious TEVAR graft that covers the new entry tear and stops above celiac artery. Placement of newuncovered stent graft to visceral aorta as the false lumen was compressing the true lumen. He is still filling false lumen. Lumbar drain in place - SBP goal 140-160; Clevidipine gtt and PRN hydralazine - Lumbar drain set to drain 10-15ml/h - Q1h NV checks - Hgb goal > 9 - Per Vascular; hold home anti-hypertensive meds - Q12h labs - Will likely need open repair at some point - Per Vascular, clamp lumbar drain 1500 - Per Vascular, hold PO meds for HTN today - Reach out to Dr Abarca re: young man with chronic aortic dissection (previously seen 04/2024) --> will see patient - Will start SQH x 2 doses and hold after in anticipation to remove lumbar drain 06/07 PULM: #Acute respiratory insufficiency #Atelectasis - Currently on 6L NC, wean for SpO2 goal > 92% - Encourage pulm hygiene, IS, PT, OT - Unable to get OOB in s/o lumbar drain - Add acapella therapy QID per BOOTH CASHIER - Daily CXR GI: Diet: CLD, ADAT Bowel regimen: senna, colace, miralax #Nausea, post op - NPO w sips and chips - PRN zofran - PRN compazine ENDO: Euglycemia RENAL: Cr Lab Results Component Value Date CREATININE 1.13 06/06/2023 #ANGI #Urinary retention #Bilateral non obstructing nephrolithiasis - 06/04 Renal arterial dopplers: Pulsatile arterial waveforms in the bilateral renal arteries withoutevidence of renal artery occlusion - Hutton in place - Strict I/O - Daily BMP, lytes - Continue Flomax HEME: Lab Results Component Value Date HGB 10.2 (L) 06/06/2023 #ABLA - No s/s bleeding, no indication for transfusion, continue to monitor closely - Daily CBC ID: Lab Results Component Value Date WBC 9.0 06/06/2023 - Currently afebrile - Monitor fever curve - PeriOp Ancef x24 hours Intensive Care Unit Standards of Care: Restraints: n/a DVT prophylaxis: SCDs Vascular access: PIV, KYRA, arterial line Goals of care: Full code Assessment and plan has been reviewed with fellow and attending Tana Winters [facility] 06/06/2023 Critical Care Performed by: Sheila Winters NP Authorized by: Sheila Winters NP CRITICAL CARE: Team: 83 CTICU Shift: AM Level of Billing: Critical Care My time spent with this patient was 70 minutes: Critical Provider Statement: I have seen and examined the patient on this day of service. I have reviewed and confirmed the history, physical exam, laboratory and radiologic data as documented in thesigned ICU note. I have reviewed and discussed my treatment plan with the ICU team and other medical/health care consultant staff, making frequent assessments and decisions [...] Mehul Brooks MD at 06/15/2023 8:25 AM CLOD PULLER PULLER PULLER * Benny Isaacs NP - 06/05/2023 6:37 PM CSTAssociated Order(s): Critical Care Post-Procedure Diagnose(s): Dissection of abdominal aorta (CMS/HCC) (HCC) Surgical ICU Daily Progress Team: 8200 PM Subjective Patient is a 33 y.o. male admitted on 06/03/2023 6:25 PM with Thoracoabdominal dissection s/p TEVAR w/ concern for progression of dissection. Interval History: - Lytes optimized - Reviewed and ordered pertinent laboratory tests. Reviewed any radiological imaging pertinent to patients current treatments. Constant evaluation of I/O's, vitals and oxygen requirements throughout shift. Multiple bedside evaluations of patients status. Hospital Course: 06/04: Admit for hypertensive urgency and bilat flank 4-5 days; renal doppler NL, esmolol & cardene infusions, hutton placement 06/05: TEVAR: L groin access, placed new graft within old graft that extends over distal portion of previous TEVAR graft that covers the new entry tear and stops above celiac artery. Placement of new uncovered stent graft to visceral aorta as the false lumen was compressing the true lumen. He is still filling false lumen. Lumbar drain in place Objective Physical Exam Neuro: A&Ox4, follows commands, moves all extremities well, PERRL Cardiac: RRR, S1S2 Pulmonary: Lungs clear to auscultation, respirations even/unlabored Abdominal: Soft, tender to palpation, nondistended, normoactive bowel sounds Extremities: palpable pulses, warm, dry Drains: Hutton Medications Scheduled Meds:acetaminophen, 1,000 mg, oral, Q6H SUSAN [Held by Provider] amLODIPine, 10 mg, oral, Daily [Held by Provider] carvediloL, 50 mg, oral, BID with meals (bkfst, dinner) ceFAZolin, 2,000 mg, intravenous, Q8H SUSAN docusate sodium, 100 mg, oral, BID Or docusate, 100 mg, feeding tube, BID gabapentin, 300 mg, oral, TID methocarbamoL, 750 mg, oral, TID polyethylene glycol, 17 g, oral, Daily potassium chloride, 40 mEq, intravenous, Once Followed by potassium chloride, 20 mEq, intravenous, Once senna, 1 tablet, oral, BID Or senna, 8.8 mg, feeding tube, BID sodium chloride 0.9%, 0.5-20 mL, intra-catheter, Q8H SUSAN tamsulosin, 0.8 mg, oral, Daily with dinner Continuous Infusions:clevidipine, 0-32 mg/hr, Last Rate: 9 mg/hr (06/06/23 0503) HYDROmorphone, , Last Rate: 0 mg/hr (06/05/23 0925) Lactated Ringer's, 10 mL/hr, Last Rate: 10 mL/hr (06/06/23 0500) sodium chloride 0.9%, 3-12 mL/hr, Last Rate: 3 mL/hr (06/06/23 0500) PRN Meds:. sodium chloride 0.9% sodium chloride 0.9% naloxone ondansetron prochlorperazine sodium chloride 0.9% Vital signs for last 24 hours: Temp: [36.3 ??C (97.4 ??F)-37 ??C (98.6 ??F)] 37 ??C (98.6 ??F) Pulse: [71-94] 80 BP: (110)/(56) 110/56 Resp: [8-22] 22 SpO2: [93 %-100 %] 95 % Arterial Line BP: (100-195)/(45-87) 167/69 Lab/Radiology/Diagnostic Review: Laboratory review: Lab results in the last 24 hours: Recent Results (from the past 24 hour(s)) Triglycerides Collection Time: 06/05/23 5:27 AM Result Value Ref Range Triglycerides 275 (H) <=149 mg/dL Basic metabolic panel Collection Time: 06/05/23 5:27 AM Result Value Ref Range Sodium 140 135 - 145 mmol/L Potassium, pl 4.1 3.3 - 4.9 mmol/L Chloride 104 97 - 110 mmol/L CO2 23 22 - 32 mmol/L Anion gap 13 2 - 15 mmol/L BUN 17 6 - 25 mg/dL Creatinine 1.78 (H) 0.80 - 1.30 mg/dL Glucose 130 70 - 199 mg/dL Calcium 8.4 (L) 8.5 - 10.3 mg/dL CBC without differential Collection Time: 06/05/23 5:27 AM Result Value Ref Range WBC 8.8 3.8 - 9.9 K/cumm Hgb 7.8 (L) 13.0 - 17.5 g/dL Hct 23.7 (L) 38.9 - 50.3 % Plt 311 150 - 400 K/cumm MPV 8.9 (L) 9.1 - 12.3 fL RBC 2.64 (L) 4.30 - 5.80 M/cumm MCV 89.8 81.3 - 96.4 fL MCH 29.5 27.1 - 33.3 pg MCHC 32.9 32.3 - 35.7 g/dL RDW CV 13.1 11.1 - 14.9 % RDW SD 42.8 35.7 - 48.1 fL NRBC abs 0.00 0.00 - 0.01 K/cumm Lactate, whole blood Collection Time: 06/05/23 5:27 AM Result Value Ref Range Lactate, bld 1.0 0.7 - 2.0 mmol/L Magnesium Collection Time: 06/05/23 5:27 AM Result Value Ref Range Magnesium 2.2 1.4 - 2.5 mg/dL Phosphorus Collection Time: 06/05/23 5:27 AM Result Value Ref Range Phosphorus, pl 5.4 (H) 2.3 - 4.5 mg/dL eGFR Collection Time: 06/05/23 5:27 AM Result Value Ref Range eGFR 52 (L) >=60 mL/min/1.73 m2 Prepare RBC: 4 Units Collection Time: 06/05/23 7:54 AM Result Value Ref Range Product code [id number] Unit Number [id number] Product Blood Type APOS Dispense Status PRESUMED TRANSFUSED Product code [id number] Unit Number [id number] Product Blood Type APOS Dispense Status PRESUMED TRANSFUSED Product code [id number] Unit Number [id number] Product Blood Type APOS Dispense Status CROSSMATCHED Product code [id number] Unit Number [id number] Product Blood Type APOS Dispense Status PRESUMED TRANSFUSED POC Blood Gas and Chemistries, Arterial - Collection Time: 06/05/23 11:19 AM Result Value Ref Range pH, Art POC 7.33 (L) 7.35 - 7.45 pCO2, Art POC 43 35 - 45 mmHg pO2, Art POC 146 (H) 83 - 108 mmHg Na, POC 139 135 - 145 mmol/L K POC 4.5 3.3 - 4.9 mmol/L Cl, POC 108 97 - 110 mmol/L Ionized Ca, POC 4.70 4.50 - 5.10 mg/dL Glucose, POC 115 70 - 199 mg/dL Lactate, POC 1.8 0.7 - 2.2 mmol/L SO2 (natalia) arterial 100 (H) 90 - 95 % Base excess, POC -3.1 mmol/L HCO3, Art POC 23 20 - 30 mmol/L Hct, POC 24.0 (L) 41.4 - 51.6 % O2 Sat, Art POC (Calc) 99 % Total Hb, POC 7.9 (L) 13.8 - 17.2 g/dL POCT Activated clotting time, low range Collection Time: 06/05/23 11:27 AM Result Value Ref Range ACT 250 (H) 123 - 168 sec POC Performer [id number] POC Device Number [id number] POCT Activated clotting time, low range Collection Time: 06/05/23 11:49 AM Result Value Ref Range ACT 244 (H) 123 - 168 sec POC Performer [id number] POC Device Number [id number] POCT Activated clotting time, low range Collection Time: 06/05/23 12:29 PM Result Value Ref Range ACT 219 (H) 123 - 168 sec POC Performer [id number] POC Device Number [id number] POCT Activated clotting time, low range Collection Time: 06/05/23 12:42 PM Result Value Ref Range ACT 150 123 - 168 sec POC Performer [id number] POC Device Number [id number] CBC with auto differential Collection Time: 06/05/23 1:34 PM Result Value Ref Range WBC 12.5 (H) 3.8 - 9.9 K/cumm Hgb 10.4 (L) 13.0 - 17.5 g/dL Hct 31.7 (L) 38.9 - 50.3 % Plt 267 150 - 400 K/cumm MPV 8.8 (L) 9.1 - 12.3 fL RBC 3.59 (L) 4.30 - 5.80 M/cumm MCV 88.3 81.3 - 96.4 fL MCH 29.0 27.1 - 33.3 pg MCHC 32.8 32.3 - 35.7 g/dL RDW CV 13.4 11.1 - 14.9 % RDW SD 43.4 35.7 - 48.1 fL NRBC abs 0.00 0.00 - 0.01 K/cumm Basic metabolic panel Collection Time: 06/05/23 1:34 PM Result Value Ref Range Sodium 139 135 - 145 mmol/L Potassium, pl 4.0 3.3 - 4.9 mmol/L Chloride 104 97 - 110 mmol/L CO2 23 22 - 32 mmol/L Anion gap 12 2 - 15 mmol/L BUN 14 6 - 25 mg/dL Creatinine 1.71 (H) 0.80 - 1.30 mg/dL Glucose 90 70 - 199 mg/dL Calcium 8.7 8.5 - 10.3 mg/dL Magnesium Collection Time: 06/05/23 1:34 PM Result Value Ref Range Magnesium 2.1 1.4 - 2.5 mg/dL Phosphorus Collection Time: 06/05/23 1:34 PM Result Value Ref Range Phosphorus, pl 5.8 (H) 2.3 - 4.5 mg/dL Differential, auto Collection Time: 06/05/23 1:34 PM Result Value Ref Range Neutrophil abs 10.3 (H) 1.5 - 6.5 K/cumm Imm gran abs 0.3 (H) 0.0 - 0.1 K/cumm Lymphocyte abs 1.3 0.8 - 3.3 K/cumm Monocyte abs 0.5 0.2 - 0.8 K/cumm Eosinophil abs 0.1 0.0 - 0.5 K/cumm Basophil abs 0.0 0.0 - 0.1 K/cumm Neutrophil pct 82.4 % Imm gran pct 2.6 % Lymphocyte pct 10.5 % Monocyte pct 3.8 % Eosinophil pct 0.5 % Basophil pct 0.2 % eGFR Collection Time: 06/05/23 1:34 PM Result Value Ref Range eGFR 54 (L) >=60 mL/min/1.73 m2 Protime-INR Collection Time: 06/05/23 2:53 PM Result Value Ref Range PT 15.3 (H) 10.3 - 13.7 sec INR 1.34 (H) 0.90 - 1.20 aPTT Collection Time: 06/05/23 2:53 PM Result Value Ref Range aPTT 32 28 - 38 sec CBC without differential Collection Time: 06/06/23 12:06 AM Result Value Ref Range WBC 9.0 3.8 - 9.9 K/cumm Hgb 10.2 (L) 13.0 - 17.5 g/dL Hct 30.0 (L) 38.9 - 50.3 % Plt 259 150 - 400 K/cumm MPV 9.1 9.1 - 12.3 fL RBC 3.47 (L) 4.30 - 5.80 M/cumm MCV 86.5 81.3 - 96.4 fL MCH 29.4 27.1 - 33.3 pg MCHC 34.0 32.3 - 35.7 g/dL RDW CV 13.6 11.1 - 14.9 % RDW SD 42.5 35.7 - 48.1 fL NRBC abs 0.00 0.00 - 0.01 K/cumm Magnesium Collection Time: 06/06/23 12:06 AM Result Value Ref Range Magnesium 1.9 1.4 - 2.5 mg/dL Phosphorus Collection Time: 06/06/23 12:06 AM Result Value Ref Range Phosphorus, pl 3.1 2.3 - 4.5 mg/dL eGFR Collection Time: 06/06/23 12:06 AM Result Value Ref Range eGFR 89 >=60 mL/min/1.73 m2 Basic metabolic panel Collection Time: 06/06/23 12:06 AM Result Value Ref Range Sodium 141 135 - 145 mmol/L Potassium, pl 3.4 3.3 - 4.9 mmol/L Chloride 103 97 - 110 mmol/L CO2 28 22 - 32 mmol/L Anion gap 10 2 - 15 mmol/L BUN 9 6 - 25 mg/dL Creatinine 1.13 0.80 - 1.30 mg/dL Glucose 100 70 - 199 mg/dL Calcium 8.8 8.5 - 10.3 mg/dL Assessment/Plan Principal Problem: Dissection of abdominal aorta (CMS/HCC) (HCC) NEURO: #Acute Pain: - Continue scheduled Tylenol, Robaxin and Gabapentin - Dilaudid TALENT DEVELOPMENT MANAGER; 0.5mg q10 min CV: # Type B Aortic Dissection s/p Cofield TBE stent graft 05/02 # C/f progression of dissection on CT - Presented to the ED with abdominal and flank pain; found to be HTN with SBPs 180s-190s - CTA w/ unchanged stenosis of the left subclavian artery stent. Continued increase in size of false lumen and decreased thrombus within the false lumen at the level of the descending thoracic aorta just distal to the stent graft. Increasing contrast opacification of the false lumen likely from fenestration at the level of the diaphragmatic hiatus and renal arteries. - 06/05: TEVAR: L groin access, placed new graft within old graft that extends over distal portion ofprevious TEVAR graft that covers the new entry tear and stops above celiac artery. Placement of newuncovered stent graft to visceral aorta as the false lumen was compressing the true lumen. He is still filling false lumen. Lumbar drain in place - SBP goal 140-160; Clevidipine gtt as needed - Lumbar drain set to drain 10-15ml/h - Per Vascular; hold home anti-hypotensives - Q12h labs - Will likely need open repair at some point PULM: # Acute respiratory insufficiency - Currently on 6L NC; encourage pulm hygiene - OOBTC in AM GI: Diet: NPO except sips and chips Bowel regimen: senna, colace, miralax ENDO: Euglycemia RENAL: Cr Lab Results Component Value Date CREATININE 1.13 06/06/2023 # ANGI # Urinary retention # Bilateral non obstructing nephrolithiasis - Hutton in place - Continue Flomax - 06/04 Renal arterial dopplers: Pulsatile arterial waveforms in the bilateral renal arteries withoutevidence of renal artery occlusion HEME: Lab Results Component Value Date HGB 10.2 (L) 06/06/2023 #ABLA - No s/s bleeding, no indication for transfusion, continue to monitor closely ID: Lab Results Component Value Date WBC 9.0 06/06/2023 - Monitor fever curve - PeriOp Ancef x24 hours Intensive Care Unit Standards of Care: Restraints: n/a DVT prophylaxis: SCDs Vascular access: PIV, KYRA, arterial line Goals of care: Full code Critical Care Performed by: Benny Isaacs NP Authorized by: Benny Isaacs NP CRITICAL CARE: Team: 83 CTICU Shift: PM Level of Billing: Critical Care My time spent with this patient was 60 minutes: Critical Provider Statement: I have seen and examined the patient on this day of service. I have reviewed and confirmed the history, physical exam, laboratory and radiologic data as documented in thesigned ICU note. I have reviewed and discussed my treatment plan with the ICU team and other medical/health care consultant staff, making frequent assessments and decisions [...] Cosigned by Mehul Brooks MD at 06/15/2023 8:24 AM CLOD PULLER PULLER PULLER * Georgia Rivera PT - 06/05/2023 9:25 AM CST Physical Therapy 06/05/23 0925 General PT Missed Visit Reason Procedure/testing/appointment (scheduled for OR this date) Recommendation/Plan PT Frequency during current admission Monitor status PT - Next Appointment 06/07/23 PULLER * Heber Randolph MD - 06/05/2023 9:03 AM CST Vascular Surgery Daily Progress Patient Name/MRN: Eriberto Chau [id number] Treatment Team: Vascular Surgery- Pager: [phone] Attending: Alonzo Duncan MD Today's Date: 06/05/2023 Room/Bed: [id number] Admit Date: 06/03/2023 Code Status: Full Code Subjective Chief complaint: Abdominal Pain Events During This Hospitalization: 06/03/23: Admitted to CTICU for impulse control Events Over Last 24 Hours: Increased abdominal pain overnight with tenderness to palpation this morning. Hemoglobin drifting. Objective Vitals: 24hr Min/Max: Temp Min: 36.3 ??C (97.4 ??F) Max: 36.6 ??C (97.9 ??F) Pulse Min: 71 Max: 84 Resp Min: 7 Max: 24 SpO2 Min: 88 % Max: 100 % Most Recent : Vitals: 06/05/23 0900 BP: Pulse: 74 Resp: 18 Temp: SpO2: 96% I/O last 2 completed shifts: In: 5434.2 [P.O.:550; I.V.:4884.2] Out: 3295 [Urine:3295] I/O this shift: In: 445.2 [I.V.:445.2] Out: 265 [Urine:265] Physical Exam: General: Alert and mildly uncomfortable appearing adult male in no acute distress HEENT: Sclera anicteric. Mucosa dry. CV: Normal rate. Regular rhythm. Pulmonary: Symmetrical chest rise and fall. Non labored work of breathing on nasal cannula Abdomen: Tender to palpation in the epigastrium and left upper quadrant. Vascular: Bilateral palpable DP pulses. Lab/Radiology/Diagnostic Review: Labs and imaging from the last 24 hours personally reviewed. Assessment/Plan Principal Problem: Dissection of abdominal aorta (CMS/HCC) (HCC) 33-year-old male with complicated type B aortic dissection who underwent placement of Cofield TBE on 05/02/23 who presents with abdominal pain and concern for progression of dissection on CT. - Due to increased pain and tenderness this morning we will move forward with emergent TEVAR. - Emergent transfusion of 2 units PRBC to bring hemoglobin to 10. Post operative transfusion goal will be 10 for spinal cord perfusion in addition to lumbar drain - Stop lasix drip. No DVT prophylaxis to allow for lumbar drain placement - Will return to CTICU post procedure. Heber Randolph MD Vascular Surgery Fellow [phone] (this is a pager, please leave a callback number) Vascular Consults: Vascular Floor/SALESPERSON TERRAZZO TILES: Problem List Cardiac and Vasculature * (Principal) Dissection of abdominal aorta (CMS/HCC) (HCC) - Primary Relevant Orders Insert arterial line (Completed) Case Request Operating Room: TEVAR - Thoracic Endovascular Repair (Completed) Critical Care (Completed) Case Request Operating Room: Thoracic Endovascular Repair - Aortic (Completed) CV Hybrid Room (Default Orderable) For patients or family members viewing this note through [employer] programs: This note was written as a [...] be involved in your care. Cosigned by Alonzo Duncan MD at 06/06/2023 7:26 AM CLOD PULLER PULLER PULLER * Sheila Winters NP - 06/05/2023 6:40 AM CSTAssociated Order(s): Critical Care Post-Procedure Diagnose(s): Dissection of abdominal aorta (CMS/HCC) (FORMERLY [facility]) Surgical ICU Daily Progress Team: 8200 AM Subjective Patient is a 33 y.o. male admitted on 06/03/2023 6:25 PM with Thoracoabdominal dissection s/p TEVAR and Hypertensive urgency Interval History: - 2u PRBC - Hold lasix gtt - NPO - To OR for surgical intervention w Vascular Surgery --> To OR for TEVAR: L groin access, placednew graft within old graft that extends over distal portion of previous TEVAR graft that covers thenew entry tear and stops above celiac artery. Placement of new uncovered stent graft to visceral aorta as the false lumen was compressing the true lumen. He is still filling false lumen and will needopen repair in future. - EBL 150 ml, 1uPRBC, 1.4L IVF, 1L UOP - SBP 140-160 - Lumbar drain 10-15 ml/hr - Flat bedrest until 1700 - Bedrest with lumbar drain in place - Q1h NV checks - NPO sips/chips - Hold lasix gtt - No need to further check lactates unless acutely indicated - Ancef x 24h - Reviewed and ordered pertinent laboratory tests. Reviewed any radiological imaging pertinent to patients current treatments. Constant evaluation of I/O's, vitals and oxygen requirements throughout shift. Multiple bedside evaluations of patients status. Objective Physical Exam Neuro: A&Ox4, follows commands, moves all extremities well, PERRL Cardiac: RRR, S1S2 Pulmonary: Lungs clear to auscultation, respirations even/unlabored, RA Abdominal: Soft, tender to palpation, nondistended, normoactive bowel sounds Extremities: palpable pulses, warm, dry Drains: Hutton with yellow output Medications Scheduled Meds:acetaminophen, 1,000 mg, oral, Q6H SUSAN amLODIPine, 10 mg, oral, Daily carvediloL, 50 mg, oral, BID with meals (bkfst, dinner) docusate sodium, 100 mg, oral, BID Or docusate, 100 mg, feeding tube, BID gabapentin, 300 mg, oral, TID methocarbamoL, 750 mg, oral, TID polyethylene glycol, 17 g, oral, Daily senna, 1 tablet, oral, BID Or senna, 8.8 mg, feeding tube, BID sodium chloride 0.9%, 0.5-20 mL, intra-catheter, Q8H SUSAN tamsulosin, 0.8 mg, oral, Daily with dinner Continuous Infusions:clevidipine, 0-32 mg/hr, Last Rate: 8 mg/hr (06/05/23599) esmolol, 0-300 mcg/kg/min, Last Rate: 300 mcg/kg/min (06/05/23599) furosemide, 15 mg/hr, Last Rate: 15 mg/hr (06/05/23599) HYDROmorphone, Lactated Ringer's, 10 mL/hr, Last Rate: 10 mL/hr (06/04/2331) sodium chloride 0.9%, 3-12 mL/hr, Last Rate: 3 mL/hr (06/04/23 1900) PRN Meds:. sodium chloride 0.9% sodium chloride 0.9% naloxone ondansetron sodium chloride 0.9% Vital signs for last 24 hours: Temp: [36.3 ??C (97.4 ??F)-36.6 ??C (97.8 ??F)] 36.4 ??C (97.5 ??F) Pulse: [71-84] 74 Resp: [7-24] 12 SpO2: [88 %-100 %] 97 % Arterial Line BP: (90-138)/(43-63) 102/50 Lab/Radiology/Diagnostic Review: Laboratory review: Lab results in the last 24 hours: Recent Results (from the past 24 hour(s)) Basic metabolic panel Collection Time: 06/04/23 11:37 AM Result Value Ref Range Sodium 140 135 - 145 mmol/L Potassium, pl 4.5 3.3 - 4.9 mmol/L Chloride 105 97 - 110 mmol/L CO2 23 22 - 32 mmol/L Anion gap 12 2 - 15 mmol/L BUN 17 6 - 25 mg/dL Creatinine 1.56 (H) 0.80 - 1.30 mg/dL Glucose 111 70 - 199 mg/dL Calcium 8.8 8.5 - 10.3 mg/dL CBC without differential Collection Time: 06/04/23 11:37 AM Result Value Ref Range WBC 7.6 3.8 - 9.9 K/cumm Hgb 8.2 (L) 13.0 - 17.5 g/dL Hct 25.8 (L) 38.9 - 50.3 % Plt 336 150 - 400 K/cumm MPV 8.7 (L) 9.1 - 12.3 fL RBC 2.86 (L) 4.30 - 5.80 M/cumm MCV 90.2 81.3 - 96.4 fL MCH 28.7 27.1 - 33.3 pg MCHC 31.8 (L) 32.3 - 35.7 g/dL RDW CV 13.0 11.1 - 14.9 % RDW SD 43.1 35.7 - 48.1 fL NRBC abs 0.00 0.00 - 0.01 K/cumm Lactate, whole blood Collection Time: 06/04/23 11:37 AM Result Value Ref Range Lactate, bld 1.1 0.7 - 2.0 mmol/L Protime-INR Collection Time: 06/04/23 11:37 AM Result Value Ref Range PT 15.6 (H) 10.3 - 13.7 sec INR 1.37 (H) 0.90 - 1.20 eGFR Collection Time: 06/04/23 11:37 AM Result Value Ref Range eGFR 61 >=60 mL/min/1.73 m2 Basic metabolic panel Collection Time: 06/04/23 5:33 PM Result Value Ref Range Sodium 139 135 - 145 mmol/L Potassium, pl 4.4 3.3 - 4.9 mmol/L Chloride 106 97 - 110 mmol/L CO2 22 22 - 32 mmol/L Anion gap 11 2 - 15 mmol/L BUN 17 6 - 25 mg/dL Creatinine 1.71 (H) 0.80 - 1.30 mg/dL Glucose 105 70 - 199 mg/dL Calcium 8.7 8.5 - 10.3 mg/dL CBC without differential Collection Time: 06/04/23 5:33 PM Result Value Ref Range WBC 7.9 3.8 - 9.9 K/cumm Hgb 7.8 (L) 13.0 - 17.5 g/dL Hct 24.6 (L) 38.9 - 50.3 % Plt 308 150 - 400 K/cumm MPV 8.7 (L) 9.1 - 12.3 fL RBC 2.71 (L) 4.30 - 5.80 M/cumm MCV 90.8 81.3 - 96.4 fL MCH 28.8 27.1 - 33.3 pg MCHC 31.7 (L) 32.3 - 35.7 g/dL RDW CV 12.9 11.1 - 14.9 % RDW SD 42.8 35.7 - 48.1 fL NRBC abs 0.00 0.00 - 0.01 K/cumm Lactate, whole blood Collection Time: 06/04/23 5:33 PM Result Value Ref Range Lactate, bld 1.8 0.7 - 2.0 mmol/L eGFR Collection Time: 06/04/23 5:33 PM Result Value Ref Range eGFR 54 (L) >=60 mL/min/1.73 m2 Basic metabolic panel Collection Time: 06/04/23 11:59 PM Result Value Ref Range Sodium 139 135 - 145 mmol/L Potassium, pl 4.1 3.3 - 4.9 mmol/L Chloride 105 97 - 110 mmol/L CO2 23 22 - 32 mmol/L Anion gap 11 2 - 15 mmol/L BUN 17 6 - 25 mg/dL Creatinine 1.91 (H) 0.80 - 1.30 mg/dL Glucose 112 70 - 199 mg/dL Calcium 8.4 (L) 8.5 - 10.3 mg/dL CBC without differential Collection Time: 06/04/23 11:59 PM Result Value Ref Range WBC 9.3 3.8 - 9.9 K/cumm Hgb 7.7 (L) 13.0 - 17.5 g/dL Hct 24.3 (L) 38.9 - 50.3 % Plt 319 150 - 400 K/cumm MPV 9.1 9.1 - 12.3 fL RBC 2.69 (L) 4.30 - 5.80 M/cumm MCV 90.3 81.3 - 96.4 fL MCH 28.6 27.1 - 33.3 pg MCHC 31.7 (L) 32.3 - 35.7 g/dL RDW CV 13.0 11.1 - 14.9 % RDW SD 42.9 35.7 - 48.1 fL NRBC abs 0.00 0.00 - 0.01 K/cumm Lactate, whole blood Collection Time: 06/04/23 11:59 PM Result Value Ref Range Lactate, bld 1.1 0.7 - 2.0 mmol/L eGFR Collection Time: 06/04/23 11:59 PM Result Value Ref Range eGFR 47 (L) >=60 mL/min/1.73 m2 Phosphorus Collection Time: 06/04/23 11:59 PM Result Value Ref Range Phosphorus, pl 6.1 (H) 2.3 - 4.5 mg/dL Magnesium Collection Time: 06/04/23 11:59 PM Result Value Ref Range Magnesium 2.4 1.4 - 2.5 mg/dL Triglycerides Collection Time: 06/05/23 5:27 AM Result Value Ref Range Triglycerides 275 (H) <=149 mg/dL Basic metabolic panel Collection Time: 06/05/23 5:27 AM Result Value Ref Range Sodium 140 135 - 145 mmol/L Potassium, pl 4.1 3.3 - 4.9 mmol/L Chloride 104 97 - 110 mmol/L CO2 23 22 - 32 mmol/L Anion gap 13 2 - 15 mmol/L BUN 17 6 - 25 mg/dL Creatinine 1.78 (H) 0.80 - 1.30 mg/dL Glucose 130 70 - 199 mg/dL Calcium 8.4 (L) 8.5 - 10.3 mg/dL CBC without differential Collection Time: 06/05/23 5:27 AM Result Value Ref Range WBC 8.8 3.8 - 9.9 K/cumm Hgb 7.8 (L) 13.0 - 17.5 g/dL Hct 23.7 (L) 38.9 - 50.3 % Plt 311 150 - 400 K/cumm MPV 8.9 (L) 9.1 - 12.3 fL RBC 2.64 (L) 4.30 - 5.80 M/cumm MCV 89.8 81.3 - 96.4 fL MCH 29.5 27.1 - 33.3 pg MCHC 32.9 32.3 - 35.7 g/dL RDW CV 13.1 11.1 - 14.9 % RDW SD 42.8 35.7 - 48.1 fL NRBC abs 0.00 0.00 - 0.01 K/cumm Lactate, whole blood Collection Time: 06/05/23 5:27 AM Result Value Ref Range Lactate, bld 1.0 0.7 - 2.0 mmol/L Magnesium Collection Time: 06/05/23 5:27 AM Result Value Ref Range Magnesium 2.2 1.4 - 2.5 mg/dL Phosphorus Collection Time: 06/05/23 5:27 AM Result Value Ref Range Phosphorus, pl 5.4 (H) 2.3 - 4.5 mg/dL eGFR Collection Time: 06/05/23 5:27 AM Result Value Ref Range eGFR 52 (L) >=60 mL/min/1.73 m2 Assessment/Plan Principal Problem: Dissection of abdominal aorta (CMS/HCC) (HCC) NEURO: #Acute Pain: - Pt c/o abdominal pain and flank pain - Continue scheduled Tylenol, Robaxin and Gabapentin - Dilaudid TALENT DEVELOPMENT MANAGER; 0.5mg q10 min - Pain goal < 4 CV: #Type B Aortic Dissection s/p Cofield TBE stent 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 Continued increase in size of false lumen and decreased thrombus within the false lumen at the level of the descending thoracic aorta just distal to the stent graft. Increasing contrast opacification of the false lumen likely from fenestration at the level of the diaphragmatic hiatus and renal arteries. - SBP goal <120, HR <60 - Continue Clevidipine gtt and Esmolol gtt to maintain goals - Continue scheduled Norvasc 10mg Daily, Coreg 50mg BID - Q1h NM and NV checks - Abdominal exams q4h - Serial labs including lactate q6h - Lasix gtt for maintain euvolemia and avoid hypervolemia - To OR with Vascular Surgery 06/05. Hold lasix infusion, transfuse 2u PRBC, prepare 2 additional units PRBC, NPO PULM: Currently on room air; encourage pulm hygiene GI: Diet: CLD --> NPO for OR 06/05 Bowel regimen: senna, colace, miralax ENDO: Euglycemia RENAL: Cr Lab Results Component Value Date CREATININE 1.78 (H) 06/05/2023 #ANGI #Urinary retention #Bilateral non obstructing nephrolithiasis - 06/04 Renal arterial dopplers: Pulsatile arterial waveforms in the bilateral renal arteries withoutevidence of renal artery occlusion - Lasix gtt to try to avoid hypervolemia --> Hold now for OR 06/05 - Hutton in place - Continue Flomax HEME: Lab Results Component Value Date HGB 7.8 (L) 06/05/2023 #ABLA - Likely dilutional - No s/s bleeding, no indication for transfusion, continue to monitor closely - Q6H CBC per Vascular - Transfuse 2u PRBC prior to OR 06/05 - Prepare additional 2u PRBC ID: Lab Results Component Value Date WBC 8.8 06/05/2023 - Currently afebrile - Monitor fever curve, WBC count Intensive Care Unit Standards of Care: Restraints: n/a DVT prophylaxis: SCDs Vascular access: PIV Goals of care: Full code Assessment and plan has been reviewed with fellow and attending Tana BATEMAN-GAY 06/05/2023 Critical Care Performed by: Sheila Winters SALESPERSON TERRAZZO TILES Authorized by: Sheila Winters NP CRITICAL CARE: Team: 83 CTICU Shift: AM Level of Billing: Critical Care My time spent with this patient was 60 minutes: Critical Provider Statement: I have seen and examined the patient on this day of service. I have reviewed and confirmed the history, physical exam, laboratory and radiologic data as documented in thesigned ICU note. I have reviewed and discussed my treatment plan with the ICU team and other medical/health care consultant staff, making frequent assessments and decisions [...] Mehul Brooks MD at 06/15/2023 8:25 AM CLOD PULLER PULLER PULLER PULLER PULLER * Benny Isaacs NP - 06/04/2023 6:46 PM CSTAssociated Order(s): Critical Care Post-Procedure Diagnose(s): Dissection of abdominal aorta (CMS/HCC) (HCC) Surgical ICU Daily Progress Team: 8200 PM Subjective Patient is a 33 y.o. male admitted on 06/03/2023 6:25 PM with Thoracoabdominal dissection s/p TEVAR and Hypertensive urgency Interval History: - Start Lasix gtt + 40mg bolus; aim for even fluid balance Objective Physical Exam Neuro: A&Ox4, follows commands, moves all extremities well, PERRL Cardiac: RRR, S1S2 Pulmonary: Lungs clear to auscultation, respirations even/unlabored Abdominal: Soft, tender to palpation, nondistended, normoactive bowel sounds Extremities: palpable pulses, warm, dry Drains: Hutton Medications Scheduled Meds:acetaminophen, 1,000 mg, oral, Q6H SUSAN amLODIPine, 10 mg, oral, Daily carvediloL, 50 mg, oral, BID with meals (bkfst, dinner) docusate sodium, 100 mg, oral, BID Or docusate, 100 mg, feeding tube, BID gabapentin, 300 mg, oral, TID methocarbamoL, 750 mg, oral, TID polyethylene glycol, 17 g, oral, Daily senna, 1 tablet, oral, BID Or senna, 8.8 mg, feeding tube, BID sodium chloride 0.9%, 0.5-20 mL, intra-catheter, Q8H SUSAN tamsulosin, 0.8 mg, oral, Daily with dinner Continuous Infusions:clevidipine, 0-32 mg/hr, Last Rate: 7 mg/hr (06/04/23 2303) esmolol, 0-300 mcg/kg/min, Last Rate: 300 mcg/kg/min (06/04/23 2235) furosemide, 10 mg/hr, Last Rate: 10 mg/hr (06/04/23 2134) HYDROmorphone, Lactated Ringer's, 10 mL/hr, Last Rate: 10 mL/hr (06/04/23 0032) sodium chloride 0.9%, 3-12 mL/hr, Last Rate: 3 mL/hr (06/04/23 1900) PRN Meds:.??? sodium chloride 0.9% ??? sodium chloride 0.9% ??? naloxone ??? ondansetron ??? sodium chloride 0.9% Vital signs for last 24 hours: Temp: [36.3 ??C (97.4 ??F)-36.8 ??C (98.2 ??F)] 36.3 ??C (97.4 ??F) Pulse: [72-84] 81 BP: (116-134)/(73-87) 125/76 Resp: [8-24] 20 SpO2: [91 %-100 %] 99 % Arterial Line BP: (90-138)/(43-61) 104/51 Lab/Radiology/Diagnostic Review: Laboratory review: Lab results in the last 24 hours: Recent Results (from the past 24 hour(s)) Basic metabolic panel Collection Time: 06/04/23 12:42 AM Result Value Ref Range Sodium 141 135 - 145 mmol/L Potassium, pl 3.6 3.3 - 4.9 mmol/L Chloride 106 97 - 110 mmol/L CO2 24 22 - 32 mmol/L Anion gap 11 2 - 15 mmol/L BUN 13 6 - 25 mg/dL Creatinine 1.13 0.80 - 1.30 mg/dL Glucose 103 70 - 199 mg/dL Calcium 8.9 8.5 - 10.3 mg/dL Phosphorus Collection Time: 06/04/23 12:42 AM Result Value Ref Range Phosphorus, pl 4.0 2.3 - 4.5 mg/dL Magnesium Collection Time: 06/04/23 12:42 AM Result Value Ref Range Magnesium 1.8 1.4 - 2.5 mg/dL Calcium, ionized Collection Time: 06/04/23 12:42 AM Result Value Ref Range Calcium, Ionized 4.63 4.50 - 5.10 mg/dL CBC without differential Collection Time: 06/04/23 12:42 AM Result Value Ref Range WBC 8.9 3.8 - 9.9 K/cumm Hgb 9.2 (L) 13.0 - 17.5 g/dL Hct 28.6 (L) 38.9 - 50.3 % Plt 369 150 - 400 K/cumm MPV 9.0 (L) 9.1 - 12.3 fL RBC 3.22 (L) 4.30 - 5.80 M/cumm MCV 88.8 81.3 - 96.4 fL MCH 28.6 27.1 - 33.3 pg MCHC 32.2 (L) 32.3 - 35.7 g/dL RDW CV 12.9 11.1 - 14.9 % RDW SD 42.2 35.7 - 48.1 fL NRBC abs 0.00 0.00 - 0.01 K/cumm eGFR Collection Time: 06/04/23 12:42 AM Result Value Ref Range eGFR 89 >=60 mL/min/1.73 m2 Lactate, whole blood Collection Time: 06/04/23 1:00 AM Result Value Ref Range Lactate, bld 1.5 0.7 - 2.0 mmol/L Type and screen Collection Time: 06/04/23 1:54 AM Result Value Ref Range Ellen, indirect Negative ABO Rh A Positive Protime-INR Collection Time: 06/04/23 1:54 AM Result Value Ref Range PT 15.8 (H) 10.3 - 13.7 sec INR 1.39 (H) 0.90 - 1.20 aPTT Collection Time: 06/04/23 1:54 AM Result Value Ref Range aPTT 35 28 - 38 sec Blood gas, arterial Collection Time: 06/04/23 2:33 AM Result Value Ref Range pH, Art 7.35 7.35 - 7.45 PCO2, Arterial 44 35 - 45 mmHg PO2, Arterial 73 (L) 83 - 108 mmHg HCO3 Art (Calculated) 25 20 - 30 mmol/L BE, art -1 mmol/L O2 Sat Art (Measured) 94 90 - 95 % Magnesium Collection Time: 06/04/23 6:09 AM Result Value Ref Range Magnesium 2.5 1.4 - 2.5 mg/dL Phosphorus Collection Time: 06/04/23 6:09 AM Result Value Ref Range Phosphorus, pl 4.6 (H) 2.3 - 4.5 mg/dL CBC without differential Collection Time: 06/04/23 6:09 AM Result Value Ref Range WBC 8.8 3.8 - 9.9 K/cumm Hgb 8.2 (L) 13.0 - 17.5 g/dL Hct 25.8 (L) 38.9 - 50.3 % Plt 347 150 - 400 K/cumm MPV 8.9 (L) 9.1 - 12.3 fL RBC 2.89 (L) 4.30 - 5.80 M/cumm MCV 89.3 81.3 - 96.4 fL MCH 28.4 27.1 - 33.3 pg MCHC 31.8 (L) 32.3 - 35.7 g/dL RDW CV 13.0 11.1 - 14.9 % RDW SD 42.8 35.7 - 48.1 fL NRBC abs 0.00 0.00 - 0.01 K/cumm Lactate, whole blood Collection Time: 06/04/23 6:09 AM Result Value Ref Range Lactate, bld 1.7 0.7 - 2.0 mmol/L eGFR Collection Time: 06/04/23 6:09 AM Result Value Ref Range eGFR 55 (L) >=60 mL/min/1.73 m2 Basic metabolic panel Collection Time: 06/04/23 6:09 AM Result Value Ref Range Sodium 140 135 - 145 mmol/L Potassium, pl 4.5 3.3 - 4.9 mmol/L Chloride 109 97 - 110 mmol/L CO2 22 22 - 32 mmol/L Anion gap 9 2 - 15 mmol/L BUN 16 6 - 25 mg/dL Creatinine 1.70 (H) 0.80 - 1.30 mg/dL Glucose 126 70 - 199 mg/dL Calcium 8.5 8.5 - 10.3 mg/dL Basic metabolic panel Collection Time: 06/04/23 11:37 AM Result Value Ref Range Sodium 140 135 - 145 mmol/L Potassium, pl 4.5 3.3 - 4.9 mmol/L Chloride 105 97 - 110 mmol/L CO2 23 22 - 32 mmol/L Anion gap 12 2 - 15 mmol/L BUN 17 6 - 25 mg/dL Creatinine 1.56 (H) 0.80 - 1.30 mg/dL Glucose 111 70 - 199 mg/dL Calcium 8.8 8.5 - 10.3 mg/dL CBC without differential Collection Time: 06/04/23 11:37 AM Result Value Ref Range WBC 7.6 3.8 - 9.9 K/cumm Hgb 8.2 (L) 13.0 - 17.5 g/dL Hct 25.8 (L) 38.9 - 50.3 % Plt 336 150 - 400 K/cumm MPV 8.7 (L) 9.1 - 12.3 fL RBC 2.86 (L) 4.30 - 5.80 M/cumm MCV 90.2 81.3 - 96.4 fL MCH 28.7 27.1 - 33.3 pg MCHC 31.8 (L) 32.3 - 35.7 g/dL RDW CV 13.0 11.1 - 14.9 % RDW SD 43.1 35.7 - 48.1 fL NRBC abs 0.00 0.00 - 0.01 K/cumm Lactate, whole blood Collection Time: 06/04/23 11:37 AM Result Value Ref Range Lactate, bld 1.1 0.7 - 2.0 mmol/L Protime-INR Collection Time: 06/04/23 11:37 AM Result Value Ref Range PT 15.6 (H) 10.3 - 13.7 sec INR 1.37 (H) 0.90 - 1.20 eGFR Collection Time: 06/04/23 11:37 AM Result Value Ref Range eGFR 61 >=60 mL/min/1.73 m2 Basic metabolic panel Collection Time: 06/04/23 5:33 PM Result Value Ref Range Sodium 139 135 - 145 mmol/L Potassium, pl 4.4 3.3 - 4.9 mmol/L Chloride 106 97 - 110 mmol/L CO2 22 22 - 32 mmol/L Anion gap 11 2 - 15 mmol/L BUN 17 6 - 25 mg/dL Creatinine 1.71 (H) 0.80 - 1.30 mg/dL Glucose 105 70 - 199 mg/dL Calcium 8.7 8.5 - 10.3 mg/dL CBC without differential Collection Time: 06/04/23 5:33 PM Result Value Ref Range WBC 7.9 3.8 - 9.9 K/cumm Hgb 7.8 (L) 13.0 - 17.5 g/dL Hct 24.6 (L) 38.9 - 50.3 % Plt 308 150 - 400 K/cumm MPV 8.7 (L) 9.1 - 12.3 fL RBC 2.71 (L) 4.30 - 5.80 M/cumm MCV 90.8 81.3 - 96.4 fL MCH 28.8 27.1 - 33.3 pg MCHC 31.7 (L) 32.3 - 35.7 g/dL RDW CV 12.9 11.1 - 14.9 % RDW SD 42.8 35.7 - 48.1 fL NRBC abs 0.00 0.00 - 0.01 K/cumm Lactate, whole blood Collection Time: 06/04/23 5:33 PM Result Value Ref Range Lactate, bld 1.8 0.7 - 2.0 mmol/L eGFR Collection Time: 06/04/23 5:33 PM Result Value Ref Range eGFR 54 (L) >=60 mL/min/1.73 m2 Assessment/Plan Principal Problem: Dissection of abdominal aorta (CMS/HCC) (HCC) NEURO: #Acute Pain: - Pt c/o abdominal pain and flank pain - Continue scheduled Tylenol, Robaxin and Gabapentin - Dilaudid TALENT DEVELOPMENT MANAGER; 0.5mg q10 min CV: # Type B Aortic Dissection s/p Cofield TBE stent graft 05/02 # C/f progression of dissection on CT - Presented to the ED with abdominal and flank pain; found to be HTN with SBPs 180s-190s - CTA w/ unchanged stenosis of the left subclavian artery stent. Continued increase in size of false lumen and decreased thrombus within the false lumen at the level of the descending thoracic aorta just distal to the stent graft. Increasing contrast opacification of the false lumen likely from fenestration at the level of the diaphragmatic hiatus and renal arteries. - SBP goal <120, HR <60 - Clevidipine gtt and Esmolol gtt to maintain goals - Continue scheduled Norvasc 10mg Daily, Coreg 50mg BID - Q1h NM and NV checks - Abdominal exams q4h - Serial labs including lactate q6h - Start lasix gtt for maintain euvolemia and avoid hypervolemia - Possible OR Tuesday? PULM: Currently on room air; encourage pulm hygiene GI: Diet: CLD Bowel regimen: senna, colace, miralax ENDO: Euglycemia RENAL: Cr Lab Results Component Value Date CREATININE 1.71 (H) 06/04/2023 # ANGI # Urinary retention # Bilateral non obstructing nephrolithiasis - Hutton in place - Continue Flomax - 06/04 Renal arterial dopplers: Pulsatile arterial waveforms in the bilateral renal arteries withoutevidence of renal artery occlusion - Start Lasix gtt to try to avoid hypervolemia HEME: Lab Results Component Value Date HGB 7.8 (L) 06/04/2023 #ABLA - Likely dilutional - No s/s bleeding, no indication for transfusion, continue to monitor closely ID: Lab Results Component Value Date WBC 7.9 06/04/2023 - Monitor fever curve Intensive Care Unit Standards of Care: Restraints: n/a DVT prophylaxis: SCDs Vascular access: PIV Goals of care: Full code Critical Care Performed by: Benny Isaacs NP Authorized by: Benny Isaacs NP CRITICAL CARE: Team: 83 CTICU Shift: PM Level of Billing: Critical Care My time spent with this patient was 95 minutes: Critical Provider Statement: I have seen and examined the patient on this day of service. I have reviewed and confirmed the history, physical exam, laboratory and radiologic data as documented in thesigned ICU note. I have reviewed and discussed my treatment plan with the ICU team and other medical/health care consultant staff, making frequent assessments and decisions [...] Cosigned by Mehul Brooks MD at 06/15/2023 8:24 AM CLOD PULLER PULLER PULLER * Heber Randolph MD - 06/04/2023 5:11 PM CST Vascular Surgery Daily Progress Patient Name/MRN: Eriberto Chau [id number] Treatment Team: Vascular Surgery- Pager: [phone] Attending: Alonzo Duncan MD Today's Date: 06/04/2023 Room/Bed: [place] [id number] Admit Date: 06/03/2023 Code Status: Prior Subjective Chief complaint: Abdominal Pain Events During This Hospitalization: 06/03/23: Admitted to CTICU for impulse control Events Over Last 24 Hours: Abdominal pain improved with impulse control Objective Vitals: 24hr Min/Max: Temp Min: 36.4 ??C (97.6 ??F) Max: 37.3 ??C (99.1 ??F) Pulse Min: 72 Max: 108 BP Min: 116/73 Max: 200/124 Resp Min: 6 Max: 23 SpO2 Min: 90 % Max: 100 % Most Recent : Vitals: 06/04/23 1700 BP: Pulse: 73 Resp: 18 Temp: SpO2: 94% I/O last 2 completed shifts: In: 2126.6 [P.O.:240; I.V.:1836.6; IV Piggyback:50] Out: 120 [Urine:120] I/O this shift: In: 2417.4 [P.O.:100; I.V.:2317.4] Out: 470 [Urine:470] Physical Exam: General: Alert and mildly uncomfortable appearing adult male in no acute distress HEENT: Sclera anicteric. Mucosa dry. CV: Normal rate. Regular rhythm. Pulmonary: Symmetrical chest rise and fall. Non labored work of breathing on nasal cannula Abdomen: Non tender to palpation. Non distended. No signs of peritonitis Extremities: No lower extremity edema bilaterally Vascular: Bilateral palpable DP pulses. Lab/Radiology/Diagnostic Review: Labs and imaging from the last 24 hours personally reviewed. Assessment/Plan Principal Problem: Dissection of abdominal aorta (CMS/HCC) (HCC) 33-year-old male with complicated type B aortic dissection who underwent placement of Cofield TBE on 05/02/23 who presents with abdominal pain and concern for progression of dissection on CT. - Continue strict impulse control with systolic BP less than 110 and HR less than 70 - Renal mesenteric duplex today shows patent renal arteries, creatinine down trending. Continue to monitor renal function and UOP. If there is evidence of renal hypoperfusion this would be a failure of medical management and prompt urgent TEVAR - Continue q1 neurovascular checks and ICU care Heber Randolph MD Vascular Surgery Fellow [phone] (this is a pager, please leave a callback number) Vascular Consults: Vascular Floor/SALESPERSON TERRAZZO TILES: Problem List Cardiac and Vasculature * (Principal) Dissection of abdominal aorta (CMS/HCC) (HCC) - Primary Relevant Orders Insert arterial line (Completed) For patients or family members viewing this note through [employer] programs: This note was written as a [...] be involved in your care. Cosigned by Alonzo Duncan MD at 06/06/2023 7:26 AM CLOD PULLER PULLER PULLER documented in this encounter H&P Notes * Sherlyn Alicea MD - 06/04/2023 2:[address] ICU History and Physical Shifts: MD Shift Options: CTI PM 1 Subjective Patient is a 33 y.o. male admitted to the hospital on 06/03/2023 6:25 PM Chief Complaint /Reason for admission to CTICU: Thoracoabdominal dissection s/p TEVAR Hypertensive urgency HPI: Eriberto Chau is a 33 y.o. male with PMHx of HTN, chronic abdominal pain, mood disorder, urinary retention who presents for persistent abdominal pain in the setting of hypertensive urgency. The patient reports that he's being having bilateral flank pain for the past 4 - 5 days. Today, he presented to the ED because the flank pain progressed to include his whole abdomen. He reports that his BP is constantly high at home, and he has not seen any correlation between the new onset abdominal pain and changes in BP. He reports that he last took his antihypertensives at 4pm. On arrival to the CTICU, he is alert and oriented with esmolol gtt at 250 and nicardipine gtt at 1.5 History reviewed. No pertinent past medical history. History reviewed. No pertinent surgical history. HOME MEDICATIONS : acetaminophen 500 mg capsule albuterol HFA (PROVENTIL HFA,VENTOLIN HFA,PROAIR HFA) 90 mcg/actuation inhaler aspirin 81 mg chewable tablet carvediloL (COREG) 12.5 mg tablet gabapentin (NEURONTIN) 300 mg capsule lidocaine (ASPERCREME) 4 % adhesive patch,medicated methocarbamoL (ROBAXIN) 750 mg tablet ondansetron ODT (ZOFRAN-ODT) 4 mg disintegrating tablet oxyCODONE (ROXICODONE) 10 mg tablet polyethylene glycol (MIRALAX) 17 gram/dose bulk powder QUEtiapine (SEROquel) 50 mg tablet senna-docusate (PERICOLACE) 8.6-50 mg tamsulosin (FLOMAX) 0.4 mg extended release capsule Allergies Allergen Reactions Amoxicillin Hives Social History Tobacco Use Smoking status: Never Smokeless tobacco: Never Substance and Sexual Activity Drug use: None Sexual activity: None Alcohol Use: Not on file History reviewed. No pertinent family history. Review of systems: Review of Systems Constitutional: Positive for malaise/fatigue. HENT: Negative. Eyes: Negative. Respiratory: Negative. Gastrointestinal: Negative. Genitourinary: Positive for flank pain. Musculoskeletal: Positive for back pain. Skin: Negative. Neurological: Negative. Endo/Heme/Allergies: Negative. Psychiatric/Behavioral: Negative. Objective Medications: Scheduled Meds:acetaminophen, 1,000 mg, oral, Q6H SUSAN carvediloL, 25 mg, oral, Once docusate sodium, 100 mg, oral, BID Or docusate, 100 mg, feeding tube, BID gabapentin, 300 mg, oral, TID magnesium sulfate, 2 g, intravenous, Once methocarbamoL, 750 mg, oral, TID polyethylene glycol, 17 g, oral, Daily senna, 1 tablet, oral, BID Or senna, 8.8 mg, feeding tube, BID sodium chloride 0.9%, 0.5-20 mL, intra-catheter, Q8H SUSAN tamsulosin, 0.4 mg, oral, Daily with dinner Continuous Infusions:esmolol, 0-300 mcg/kg/min, Last Rate: 300 mcg/kg/min (06/04/23199) HYDROmorphone, Lactated Ringer's, 10 mL/hr, Last Rate: 10 mL/hr (06/04/2331) niCARdipine, 0-2.5 mcg/kg/min, Last Rate: 1 mcg/kg/min (06/04/23199) sodium chloride 0.9%, 3-12 mL/hr, Last Rate: 3 mL/hr (06/04/2331) Vitals: Temp: [36.7 ??C (98.1 ??F)-37.3 ??C (99.1 ??F)] 36.7 ??C (98.1 ??F) Pulse: [76-108] 76 BP: (116-200)/(73-140) 125/76 Resp: [6-23] 6 SpO2: [90 %-99 %] 92 % Arterial Line BP: (101)/(49) 101/49 Fluid balance: I/O this shift: In: 1046 [I.V.:996; IV Piggyback:50] Out: - Intake/Output Summary (Last 24 hours) at 06/04/2023 0228 Last data filed at 06/04/2023 0200 Gross per 24 hour Intake 1046.01 ml Output -- Net 1046.01 ml Vent settings: Hemodynamic parameters: PAP: -- CVP: -- PCWP: -- CO: -- CI: -- SVO2: -- Pacemaker Overdrive Pacing: -- Cardiac Rhythm: Normal sinus rhythm (06/04 199) Pacer Mode: -- Physical exam: Physical Exam Constitutional: Appearance: Normal appearance. He is ill-appearing. HENT: Head: Normocephalic and atraumatic. Eyes: Pupils: Pupils are equal, round, and reactive to light. Cardiovascular: Rate and Rhythm: Normal rate and regular rhythm. Pulses: Carotid pulses are 2+ on the right side and 2+ on the left side. Radial pulses are 2+ on the right side and 2+ on the left side. Dorsalis pedis pulses are 2+ on the right side and 2+ on the left side. Posterior tibial pulses are 2+ on the right side and 2+ on the left side. Heart sounds: Normal heart sounds. No systolic murmur is present. No diastolic murmur is present. Pulmonary: Effort: Pulmonary effort is normal. No tachypnea or respiratory distress. Breath sounds: Normal breath sounds. Chest: Chest wall: No tenderness. Abdominal: Palpations: Abdomen is soft. Musculoskeletal: General: Normal range of motion. Cervical back: Normal range of motion and neck supple. Right lower leg: No edema. Left lower leg: No edema. Skin: General: Skin is warm and dry. Capillary Refill: Capillary refill takes 2 to 3 seconds. Neurological: General: No focal deficit present. Mental Status: He is alert and oriented to person, place, and time. Psychiatric: Mood and Affect: Mood normal. Behavior: Behavior normal. Laboratory data: Recent Labs Lab Units 06/04/23 0042 06/03/23 1830 WBC K/cumm 8.9 8.9 HEMOGLOBIN g/dL 9.2* 10.8* HEMATOCRIT % 28.6* 33.2* PLATELETS K/cumm 369 399 Recent Labs Lab Units 06/04/23 0042 06/03/23 1836 06/03/23 1830 SODIUM mmol/L 141 -- 142 POTASSIUM PLASMA mmol/L 3.6 -- 3.6 CHLORIDE mmol/L 106 -- 105 CO2 mmol/L 24 -- 25 BUN SERUM mg/dL 13 -- 13 CREATININE mg/dL 1.13 -- 1.17 CREATININE POC mg/dL -- 1.1 -- CALCIUM mg/dL 8.9 -- 9.9 Recent Labs Lab Units 06/04/23 0154 PROTIME (PT) sec 15.8* INR 1.39* APTT sec 35 Radiology/Diagnostic/Lab Review 06/03 CTA Chest Abdomen Pelvis Just inferior to the distal aspect of the stent, there has been erosion of the intimomedial flap with a short segment of aorta that has no demonstrable flap (and and thus the left aspect of its wall is from the previous falls lumen) measuring 5 cm in length. Just inferior to this, the true lumen can be seen medially, but is very small. There is also some remodeled thrombus within the aorta just distal to the stent, that was previously in the false lumen. The aorta just distal to the stent has also dilated and is somewhat lobular along the portion that was previously false lumen, now measuring 4.3 x 4.2 cm versus 3.8 x 3.8 cm on the prior. Of note, the celiac axis arises from the false lumen while the superior mesenteric artery is primarily arising from the true lumen. Both renals arise from the true lumen although the flap is very close to the left renal origin. The inferior mesenteric artery arises from the true lumen. Thus, the patient's pain may be secondary to the collapse of the true lumen restricting blood flow to its branch vessels, potential emboli from the irregular thrombus just below the stent that now communicates with the major path of blood flow, or perhaps from the dilatation of the aorta below the stent. Of note, although the aorta is lobular, there is no surrounding stranding or blood. 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 Hypertensive urgency - Impulse control with SBP goal <120 and HR goal <60 - Continue esmolol gtt - Changed nicardipine gtt - Trend BMP/CBC/lactate q6h - Serial abdominal exams - Titrate home carvedilol for long acting BP control #Hx of urinary retention -Home flomax # Suspected JANELLE -CPAP at night #Mood disorder -Home seroquel #Post-surgical pain -Home gabapentin -Home robaxin -Dilaudid TALENT DEVELOPMENT MANAGER, transition to PO medications when able ICU Checklist Feeding: NPO DVT ppx: Hold pharmacological ppx until operative plan determined, SCDs Glycemic control: No prior history of diabetes, not indicated at this time Ulcer ppx: None indicated LDA: Right radial a-line, PIV x2 Cosigned by Mehul Brooks MD at 06/15/2023 8:35 AM CLOD PULLER PULLER PULLER PULLER documented in this encounter Procedure Notes * Carline Jerome MD - 06/07/2023 2:45 PM CST Procedures Removal of Lumbar drain: Pre-removal checks: Patient identified. Platelet count ok, coags ok. No drainage of current lumbar drain. Informed consent: I explained risks of subdural hematoma, lumbar drain fracture during removal and persistent CSF leak post removal. Procedure: 10 ml of clear CSF drained in 30 minutes prior to lumbar drain removal. LE motor exam shows excellent 5/5 strength in both lower extremities. Patient in bed. Turned to left lateral side. Mask and gloves donned. Sterile dressing removed. Lumbar spinal fluid drain removed. Tip in tact: distal black tip visualized. Patient tolerated the procedure well with no pain or paresthesias. New sterile gauze and sterile transparent Tegaderm dressing a pplied. Patient placed on bedrest for 4 hours to decrease the risk for CSF drainage post-removal removal. Procedure explained to patient as well as possible events post removal including persistent CSF leak and/or headache. I personally performed the procedure as documented. 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 agrees and accepts Patient's stated name/ matches armband: Yes Supplies, devices and special equipment are available: yes Indications: multiple ABGs and hemodynamic monitoring Location: Right radial Anesthesia: Local infiltration Patient skin preparation: chlorhexidine Patient preparation: Gloves, mask, handwashing and towels Catheter gauge: 20 Catheter length (cm): 4.5 Single percutaneous needle puncture: Yes Seldinger technique used: No Number of attempts: 4 Placement confirmed with arterial waveform: Yes Post-procedure: Line sutured and dressing applied Post-procedure CMS: Unchanged Patient tolerance: Patient tolerated the procedure well with no immediate complications Complications: vasospasm Post Procedure Debrief: All guidewires, needles, sponges or other items are accounted for: yes Any special post procedure monitoring, testing or other considerations: yes (enter/request order) Cosigned by Mehul Brooks MD at 06/15/2023 8:35 AM CLOD PULLER PULLER PULLER PULLER documented in this encounter Consult Notes * Joaquín Abarca MD - 06/07/2023 9:30 AM CST Cardiology Aortopathy Consultation Note History and Physical Patient Name: Eriberto Chau Provider: Joaquín Abarca MD : 1990 Date of Service: 06/07/2023 CHIEF COMPLAINT: HTN, aortic dissection HISTORY: I have been asked to the the patient by Dr. Nikhil Samuel for consultation regarding HTN and aortopathy. 33 y.o. male with a history of type B aortic dissection and recurrent aortic malperfusion leading to abdominal pain and another intervention by the vascular surgeons. I was asked to see him for consultation regarding the aortopathy and the hypertension. I saw the patient 5 weeks ago or so for initial consultation. He has a history of uncontrolled hypertension and nonadherence to medications in the past. May 01 he had acute type B aortic dissection and some renal insufficiency. He underwent endovascular repair with TEVAR because of concerns about propagation toward the arch. He also was seen by Neurology for paraplegia and spinal cord ischemia. He had evidence for hematoma and some spinal cord abnormality. He was on medications for blood pressure support for that abnormality when I saw him month ago. The patient has no known features of a syndromic aortopathy. He reports now that his grandfather paternal grandfather had some sort of aortic disease and describes that he had a surgerysurgery from chest to abdomen for that condition late in life. He has 7 children none of whom are known to have aortic disease. Siblings are not known to have aortic disease. He reports that after his discharge home he had elevated blood pressures. He brought his to the phone and she shared that he had blood pressure readings from 1 50-180 over the 80-90 up to 100 range in April. The patient reports that at home before admission he had 2 days of very severe abdominal and side pain with he could not get comfortable and he came to the hospital where he was found to have the aortic abnormality with malperfusion and compression of the true lumen which he underwent another endovascular repair. The patient is currently on nicardipine drip. He has not having any pain at present. ALLERGY: Amoxicillin MEDICATIONS acetaminophen, 1,000 mg, oral, Q6H [facility] docusate sodium, 100 mg, oral, BID gabapentin, 300 mg, oral, TID methocarbamoL, 750 mg, oral, TID polyethylene glycol, 17 g, oral, BID potassium chloride ER, 40 mEq, oral, Once potassium, sodium phosphates, 2 packet, oral, TID AC QUEtiapine, 50 mg, oral, Nightly senna, 1 tablet, oral, BID sodium chloride 0.9%, 0.5-20 mL, intra-catheter, Q8H [facility] tamsulosin, 0.8 mg, oral, Daily with dinner PAST MEDICAL HISTORY Positive for hypertension. Positive for type B aortic dissection status post endovascular repair [id number] status post repeat endovascular repair with another stent and a uncovered stent to the visceral Aorta for malperfusion. Echocardiogram during April admission notable for global reduced LV ejection fraction at 41%. Dilated LV with left ventricular hypertrophy. Bubble study was positive for PFO FAMILY HISTORY Positive for what sounds like aortic disease and a paternal grandfather SOCIAL HISTORY Social History Tobacco Use Smoking status: Never Smokeless tobacco: Never Substance and Sexual Activity Drug use: None Sexual activity: None Alcohol Use: Not on file Negative for cigarette smoking. ROS Twelve system review negative in all 12 organ systems except for that noted above PHYSICAL EXAM: Vitals: 06/07/23 0845 06/07/23 0900 06/07/23 0906 06/07/23 0912 BP: BP Location: Pulse: 94 94 95 98 Resp: 12 17 13 9 Temp: 37.3 ??C (99.1 ??F) 37.1 ??C (98.8 ??F) 37.1 ??C (98.8 ??F) 37.1 ??C (98.8 ??F) TempSrc: Bladder SpO2: 96% 96% 96% 97% Weight: Height: Intake/Output Summary (Last 24 hours) at 06/07/2023 0930 Last data filed at 06/07/2023 0927 Gross per 24 hour Intake 2379.9 ml Output 1808 ml Net 571.9 ml General: no acute distress. Eyes: BERNARDO/EOMI, Conjuctiva Clear ENT: External ears/nose normal Neck: Supple Respiratory: Clear to ausculation bilaterally; no wheezing/rales/rhonchi; respirations nonlabored Cardiovascular: RRR, normal S1 and S2. No S3 or S4. No murmers or rubs. Carotid upstrokes brisk bilaterally and without bruits. Normal PMI Gastrointestinal: soft, non-tender abdomen, Extremities: no cyanosis or clubbing or edema Musculoskeletal: no obvious joint deformities Skin: no obvious rash or bruising Psychiatric: normal affect Neurologic: awake/alert, no focal deficits He has a attached earlobes. He does not have bluish sclera. He does not have elongated fingers or toes. He does not have small lips or a pinched nose appearance. He has not have acrogeria. He has nothave abnormal bruising. No pectus deformity. Lab/Radiology/Diagnostic Review: Recent Labs Lab Units 06/07/23 0011 06/06/23 0814 06/06/23 0006 HEMOGLOBIN g/dL 11.1* 10.7* 10.2* HEMATOCRIT % 33.1* 32.6* 30.0* WBC K/cumm 11.2* 8.9 9.0 PLATELETS K/cumm 270 254 259 Recent Labs Lab Units 06/07/23 0011 06/03/23 1836 06/03/23 1830 SODIUM mmol/L 134* < > 142 POTASSIUM PLASMA mmol/L 3.7 < > 3.6 CHLORIDE mmol/L 97 < > 105 CO2 mmol/L 28 < > 25 ANIONGAP mmol/L 9 < > 12 GLUCOSE mg/dL 114 < > 130 POC GLUCOSE MONITOR -- < > -- BUN SERUM mg/dL 8 < > 13 CREATININE mg/dL 0.80 < > 1.17 CREATININE POC -- < > -- CALCIUM mg/dL 8.5 < > 9.9 ALBUMIN g/dL -- -- 4.1 ALK PHOS Units/L -- -- 116 ALT Units/L -- -- 19 AST Units/L -- -- 10 BILIRUBIN TOTAL mg/dL -- -- 0.3 < > = values in this interval not displayed. XR Chest 1 View Result Date: 06/07/2023 Changes of aortic vascular stent extending to the upper abdominal aorta. Changes of left subclavianstent. Lungs are clear without focal opacity. No pleural effusion. No pneumothorax. Cardiac mediastinal silhouette is stable from prior radiograph. Dictated by: Delta Doss MD XR Chest 1 View Result Date: 06/06/2023 Comparison is made to chest radiograph dated 06/04/2023. Hypoinflated lungs with left greater than right mild bibasilar atelectasis, similar to prior study. No pleural effusion or pneumothorax. Stable borderline enlarged cardiac silhouette. Unchanged stent in the aortic arch and descending aorta with interval placement of the stent extending from the descending aorta into the abdominal aorta. Unch anged left superior mediastinal vascular stent. Electronically signed by: Faiza Su M.D. EXAMINATION: CT ANGIOGRAPHY OF THE CHEST, ABDOMEN AND PELVIS WITH AND WITHOUT CONTRAST HISTORY: 33-year-old status post endovascular stent graft 05/02/2023. Now with bilateral flank pain radiating to abdomen. Also with nausea TECHNIQUE: Computed tomographic images of the chest, abdomen and pelvis were acquired without and intravenous contrast using an angiographic protocol optimized for aortic dissection (aorta). The contrast enhanced transaxial images were obtained following the intravenous administration of 92 ml of nonionic contrast. Multiplanar reformatted images and three-dimensional images of the aorta and associated vasculature were obtained on the 3-D workstation and sent to the PACS archival system. COMPARISON: 05/16/2023 CT FINDINGS: Chest: Postoperative changes of type B aortic dissection status post thoracic endovascular aortic repair with left subclavian stent. The proximal attachment site just proximal to the origin of the left common carotid artery and the distal attachment site the descending thoracic aorta the level of the left atrium. The stent graft is patent. There is continued stenosis at the origin of the left subclavian stent graft. This is similar to prior. No evidence of stent migration or endoleak. The dissection flap extends inferiorly to the level of the left common iliac artery, unchanged. There is increased opacification of the false lumen of the false lumen which is likely due to fenestration at the level of the the level of the distal esophagus and also at the renal arteries. There is slight enlargement of the aorta just distal to the stent graft. . There is decreasing thrombus within the false lumen. The false lumen size has increased in size measuring Overall aorta diameter is unchanged in size. At the level of the diaphragmatic hiatus: 40 x 30 mm, unchanged when remeasured on similar axes. At the proximal ascending thoracic aorta: 34 x 35 mm, unchanged when remeasured. At the descending thoracic aorta at the level just distal to the stent graft: 38 x 35 mm, previously 33 x 33 mm The false lumen has increased in size now measuring 39 x 32 mm, previously 39 x 22 mm. The celiac artery arise from the false lumen. The superior mesenteric artery, both renal arteries, and inferior mesenteric artery arise from the true lumen. The left renal artery immediately arises from the true lumen. The pelvic vasculature is patent. Nonvascular findings: Imaged thyroid is normal. No thoracic adenopathy. Normal heart size. No pericardial effusion. The lungs are clear. No pleural effusion or consolidation. No pneumothorax. Patent central airways. Hemangioma within hepatic segment 4, otherwise normal. Normal gallbladder, spleen, pancreas, both adrenal glands. Multiple punctate nonobstructing stones in both kidneys, unchanged. No hydronephrosis. Urinary bladder is fluid-filled. Prostate is present. No free fluid or free air. Mild colonic diverticulosis. Normal appendix. No evidence of bowel wall thickening or obstruction. No abdominal or pelvic lymphadenopathy. Trace of cutaneous edema along the posterior neck soft tissues. No suspicious osseous lesion. IMPRESSION: 1. Changes of type B aortic dissection status post thoracic endovascular aortic repair and stenting of the left subclavian artery, with unchanged stenosis of the left subclavian artery stent. Continued increase in size of false lumen and decreased thrombus within the false lumen at the level of the descending thoracic aorta just distal to the stent graft. Increasing contrast opacification of the false lumen likely from fenestration at the level of the diaphragmatic hiatus and renal arteries. 2. Unchanged nonobstructive bilateral nephrolithiasis, otherwise no acute findings in the chest abdomen or pelvis to explain patient's abdominal pain. Dictated by: Julieth Ballard MD ADDENDUM - This addendum is being placed on the report for a time dependent finding on a patient who is still in the emergency room (3B). After review the attending physician, the following additional comments are made: Just inferior to the distal aspect of the stent, there has been erosion of the intimomedial flap with a short segment of aorta that has no demonstrable flap (and and thus the left aspect of its wall is from the previous falls lumen) measuring 5 cm in length. Just inferior to this, the true lumen can be seen medially, but is very small. There is also some remodeled thrombus within the aorta just distal to the stent, that was previously in the false lumen. The aorta just distal to the stent has also dilated and is somewhat lobular along the portion that was previously false lumen, now measuring 4.3 x 4.2 cm versus 3.8 x 3.8 cm on the prior. Of note, the celiac axis arises from the false lumen while the superior mesenteric artery is primarily arising from the true lumen. Both renals arise from the true lumen although the flap is very close to the left renal origin. The inferior mesenteric artery arises from the true lumen. Thus, the patient's pain may be secondary to the collapse of the true lumen restricting blood flow to its branch vessels, potential emboli from the irregular thrombus just below the stent that now communicates with the major path of blood flow, or perhaps from the dilatation of the aorta below the stent. Of note, although the aorta is lobular, there is no surrounding stranding or blood. These findings were communicated to Dr. Samuel and Dr. Manzano by Dr. Baker immediately upon identification of the findings at readout at 9 pm on 06/03/23. The radiology attending physician has personally reviewed this study, and had reviewed and/or edited this written report and agrees with it. Electronically signed by: Telly Baker M.D. Impression/Plan: Principal Problem: Dissection of abdominal aorta (CMS/HCC) (HCC) The patient had recurrent aortic event as described above with malperfusion of the aorta distal to the prior stent graft with symptomatic presentation with abdominal pain. He underwent intervention with endovascular repair. He is currently asymptomatic. Blood pressures at present range from 128/56 to 175/72. Heart rates in the 90s. In speaking to his vascular surgeon they prefer systolic blood pressures in the 140 range or so for spinal cord perfusion. He had been on beta-louie with carvedilol 12.5 mg b.I.d. on his discharge on 05/16/2023. Those discharge he had elevated blood pressure readings in the days after discharge home. We will need to formulate a plan for blood pressure control based upon reasonable blood pressure goal and spinal cord perfusion. When allowable, recommend resuming a beta-louie. We shared this decision with the vascular surgeon with regard to initiation. He was on carvedilol that can be resumed and then up titrated as blood pressure allows. Although he does not have syndromic features of a aortic condition, hypertension is likely the cause for the type B dissection but with a paternal grandfather with aortic disease in the young age of this onset of disease recommend genetic testing to see if he carries a variant in a gene that associated with aneurysms disease. We can arrange this as an outpatient. Joaquín Abarca MD PULLER * TillmanShana Anil, RD - 06/04/2023 3:39 PM CSTAssociated Order(s): IP CONSULT TO NUTRITION SERVICES NUTRITION ASSESSMENT Nutrition Status: Patient does not meet ASPEN criteria for malnutrition at this time. REASON FOR ASSESSMENT: Consult/Referral - At Risk MST Score Encounter Date: 06/04/23 3:39 PM Admission Date: 06/03/2023 LOS: 1 days HPI: Patient is a 33 y.o. male Pt with recent type B aortic dissection s/p TEVAR 05/02. Course complicated by refractory hypertension and transient spinal cord ischemia managed with lumbar drain with recovery of motor and sensation in the BLE. Now returns with increased abdominal and back pain in settingof hypertensive urgency. Pt admitted to [facility] 06/03 c/f collapse of true lumen adjacent to celiac axis as caused of abd pain Objective History reviewed. No pertinent past medical history. History reviewed. No pertinent surgical history. Social History Tobacco Use Smoking status: Never Smokeless tobacco: Never Substance and Sexual Activity Drug use: None Sexual activity: None Alcohol Use: Not on file MEDICATION/LAB REVIEW: Scheduled Meds: acetaminophen, 1,000 mg, oral, Q6H [facility] amLODIPine, 10 mg, oral, Daily carvediloL, 50 mg, oral, BID with meals (bkfst, dinner) docusate sodium, 100 mg, oral, BID Or docusate, 100 mg, feeding tube, BID gabapentin, 300 mg, oral, TID methocarbamoL, 750 mg, oral, TID polyethylene glycol, 17 g, oral, Daily senna, 1 tablet, oral, BID Or senna, 8.8 mg, feeding tube, BID sodium chloride 0.9%, 0.5-20 mL, intra-catheter, Q8H [facility] tamsulosin, 0.8 mg, oral, Daily with dinner Continuous Infusions: clevidipine, 0-32 mg/hr, Last Rate: 6 mg/hr (06/04/23 1500) esmolol, 0-300 mcg/kg/min, Last Rate: 300 mcg/kg/min (06/04/23 1500) HYDROmorphone, Lactated Ringer's, 10 mL/hr, Last Rate: 10 mL/hr (06/04/23 003) sodium chloride 0.9%, 3-12 mL/hr, Last Rate: 3 mL/hr (06/04/23 1500) PRN Meds: sodium chloride 0.9% sodium chloride 0.9% labetalol naloxone ondansetron sodium chloride 0.9% Recent Labs Lab Units 06/04/23 1137 06/04/23 0609 06/04/23 0042 06/03/23 1836 06/03/23 1830 SODIUM mmol/L 140 140 141 -- 142 POTASSIUM PLASMA mmol/L 4.5 4.5 3.6 -- 3.6 CHLORIDE mmol/L 105 109 106 -- 105 CO2 mmol/L 23 22 24 -- 25 BUN SERUM mg/dL 17 16 13 -- 13 CREATININE mg/dL 1.56* 1.70* 1.13 -- 1.17 CREATININE POC -- -- -- < > -- [id number] mL/min/1.73 m2 61 55* 89 -- 85 CALCIUM mg/dL 8.8 8.5 8.9 -- 9.9 ALBUMIN g/dL -- -- -- -- 4.1 PHOSPHORUS PLASMA mg/dL -- 4.6* 4.0 < > -- MAGNESIUM mg/dL -- 2.5 1.8 -- -- < > = values in this interval not displayed. Recent Labs Lab Units 06/04/23 1137 06/04/23 0609 06/04/23 0042 06/03/23 1830 GLUCOSE mg/dL 111 126 103 130 ALT Date Value Ref Range Status 06/03/2023 19 7 - 55 Units/L Final AST Date Value Ref Range Status 06/03/2023 10 10 - 50 Units/L Final Alk phos Date Value Ref Range Status 06/03/2023 116 40 - 130 Units/L Final Lipase Date Value Ref Range Status 06/03/2023 40 10 - 99 Units/L Final Lab Results Component Value Date TRIG 183 (H) 05/12/2023 NURSING ASSESSMENT: Last BM Date: 06/03/23 Bowel Sounds (All Quadrants): Active Toni Scale Score: 19 Skin Integrity: Surgical incision Vital Signs BP: 125/76 Temp: 36.4 ??C (97.6 ??F) Pulse: 74 Resp: 12 SpO2: 95 % Intake/Output Summary (Last 24 hours) at 06/04/2023 1539 Last data filed at 06/04/2023 1500 Gross per 24 hour Intake 4161.01 ml Output 520 ml Net 3641.01 ml Adult Malnutrition Scoring Tool (MST) Have You Recently Lost Weight Without Trying?: Yes (Comment) How Much Weight Have You Lost?: 14 - 23 lb Have you been eating poorly because of a decreased appetite?: Yes Malnutrition Screening Tool (MST) Score: 3 Anthropometrics Weight: 100.4 kg (221 lb 5.5 oz) Admission Weight : 100.4 kg Weight Change: 0.60 kg (1.34 lbs) IBW/kg (Calculated) : 72.6 kg Height: 175.3 cm (5' 9 ) Weight in (lb) to have BMI = 25: 168.9 BMI (Calculated): 32.7 Wt Readings from Last 10 Encounters: 06/04/23 100.4 kg (221 lb 5.5 oz) 05/16/23 99.2 kg (218 lb 11.2 oz) 05/06/23 111.6 kg (246 lb 0.5 oz) ESTIMATED NEEDS: . Dietary Orders (From admission, onward) Start Ordered 06/04/23 0015 NPO Diet Diet effective now 06/04/23 0014 Allergies: Reviewed. IMPRESSION: Pt appears well nourished. Note fat/muscle wasting noted. Note during recent admission pt was fluidoverloaded and wt loss in part due to fluid. Pt UbW is ~225#. Pt reports decreased po intake in last few days 2/2 abd pain,maybe lost a few pounds, but previously eating well. Pt doesn't meet criteria for malnutrition at this time. Pt currently NPO. Will monitor poi intake and tolerance once diet advances. ASPEN MALNUTRITION ASSESSMENT: Date of completion: 06/04/23 ASPEN/AND Malnutrition Screening: Patient does not meet malnutrition criteria NUTRITION FOCUSED PHYSICAL EXAM: Completed. NUTRITION DIAGNOSIS: Nutrition Diagnosis 1: Inadequate energy intake Related to: NPO status INTERVENTION(S): Pt currently NPO, will f/u for po intake and tolerance once able to advance diet. GOAL(S): Advance to oral intake as medically able MONITORING/EVALUATION: Appetite, GI output, Hydration status, I/O, Labs, Plan of care, Diet advancement Shana Tillman RD, LD, [facility] [phone] NSS Oncall/Weekend PULLER * Brynn Lazo MD - 06/03/2023 10:30 PM CST Vascular Surgery Consultation Patient Name/MRN: Eriberto Chau [id number] Treatment Team: Vascular Surgery- Reason for Consult: increase false lumen size, known thoracic dissection Attending: Alonzo Duncan MD Today's Date: 06/04/2023 Admitting Service: Vascular Admitting location: [place] [id number] Admit Date: 06/03/2023 Code Status: Prior CC: Chief Complaint Patient presents with Post-op Problem Subjective HPI: Patient is a 33 y.o. male with type B aortic dissection from zone 2 through 10 previously managed in the setting of severe pain and progression on serial imaging with TBE on 05/02/23. Course complicated by refractory hypertension and transient spinal cord ischemia managed with lumbar drain with recovery of motor and sensation in the BLE. Now returns with increased abdominal and back pain. Mr. Chau reports that he has had abdominal and back pain since discharge from hospital in April, but reports that this has significantly worsened today. He reports that he has been eating, reports some diarrhea, endorses one episode of small amount of bright red blood in his stool, otherwise denies hematochezia or melena. He reports that he has been taking his home antihypertensive medications as prescribed, but reportsthat his SBP at home has been steadily rising, with SBPs around 150s over [place] and up to 180s-190s in the last week. He reports that his pain has been worsening over that time, but that he did not want to be admitted to the hospital given needing to care for his 7 children. He also reports that he has had numbness and tingling intermittently in his LLE. He reports that this was worst when he was previously admitted to the hospital, but also reports that this has had intermittent episodes of worsened paresthesias recently. Denies paresthesias in the upper extremities. Upon presentation to the ED, he was noted to have SBPs in the 180s-190s. He was initially given oral betablocker, then a single dose of 20mg IV labetalol. Upon exam, his SBP is 190-200, MAPs in the 140s to 150. PMH: Refractory HTN PSH: TBE (aortic arch endograft with subclavian branch stent) Allergies Allergen Reactions Amoxicillin Hives Medications Prior to Admission Medication Sig Dispense Refill Last Dose acetaminophen 500 mg capsule Take 2 capsules (1,000 mg total) by mouth every 6 (six) hours as needed for pain 30 tablet 0 albuterol HFA (PROVENTIL HFA,VENTOLIN HFA,PROAIR HFA) 90 mcg/actuation inhaler Inhale 2 puffs every4 (four) hours as needed for wheezing 1 each 0 aspirin 81 mg chewable tablet Take 1 tablet (81 mg total) by mouth daily 30 tablet 11 carvediloL (COREG) 12.5 mg tablet Take 1 tablet (12.5 mg total) by mouth 2 (two) times a day 60 tablet 11 gabapentin (NEURONTIN) 300 mg capsule Take 1 capsule (300 mg total) by mouth 3 (three) times a day 90 capsule 11 lidocaine (ASPERCREME) 4 % adhesive patch,medicated [...] mg total) by mouth daily 30capsule 0 Current Facility-Administered Medications Medication Dose Route Frequency Provider Last Rate Last Admin acetaminophen (TYLENOL) tablet 1,000 mg 1,000 mg oral Q6H [facility] Sherlyn Alicea MD 1,000 mg at 06/04/23 0516 amLODIPine (NORVASC) tablet 10 mg 10 mg oral Daily Michael Hamm MD 10 mg at 06/04/23 0243 Carrier Fluids for Secondary Infusion - 0.9% Sodium Chloride 30 mL intravenous PRN Sherlyn Alicea MD Carrier Fluids for Secondary Infusion - 0.9% Sodium Chloride 30 mL intravenous PRN Sherlyn Alicea MD carvediloL (COREG) tablet 12.5 mg 12.5 mg oral BID with meals (bkfst, dinner) Adrianne Adams MD PhD docusate sodium (COLACE) capsule 100 mg 100 mg oral BID Sherlyn Alicea MD 100 mg at 06/04/23 0045 Or docusate (COLACE) 10 mg/mL oral liquid 100 mg 100 mg feeding tube BID Sherlyn Alicea MD esmolol in 0.9% sodium chloride (BREVIBLOC) 2,500 mg/250 mL (10 mg/mL) infusion (premix) 0-300 mcg/kg/min intravenous Titrated Sherlyn Alicea MD 179.6 mL/hr at 06/04/23 0700 300 mcg/kg/min at 06/04/23 0700 gabapentin (NEURONTIN) capsule 300 mg 300 mg oral TID Sherlyn Alicea MD HYDROmorphone in 0.9% sodium chloride (DILAUDID) 20 mg/100 mL (0.2 mg/mL) (premix) intravenous Continuous Sherlyn Alicea MD New Syringe/Cartridge at 06/04/23 0028 Lactated Ringer's (LR) infusion 10 mL/hr intravenous Continuous Sherlyn Alicea MD 10 mL/hr at 06/04/23 0032 10 mL/hr at 06/04/23 0032 methocarbamoL (ROBAXIN) tablet 750 mg 750 mg oral TID Sherlyn Alicea MD 750 mg at 06/04/23 0045 naloxone (NARCAN) 0.4 mg/mL injection 0.04-0.4 mg 0.04-0.4 mg intravenous Q10 Min PRN Sherlyn Alicea MD niCARdipine in sodium chloride 0.9% (CARDENE) 25,000 mcg/250 mL (100 mcg/mL) infusion (premix) solution 0-2.5 mcg/kg/min intravenous Titrated Sherlyn Alicea MD Stopped at 06/04/23 0501 ondansetron (ZOFRAN) injection 4 mg 4 mg intravenous Q6H PRN Sherlyn Alicea MD 4 mg at 06/04/23 0052 polyethylene glycol (MIRALAX) packet 17 g 17 g oral Daily Sherlyn Alicea MD senna (SENOKOT) tablet 1 tablet 1 tablet oral BID Sherlyn Alicea MD 1 tablet at 045 Or senna 1.76 mg/mL syrup 8.8 mg 8.8 mg feeding tube BID Sherlyn Alicea MD sodium chloride 0.9% flush 0.5-20 mL 0.5-20 mL intra-catheter Q8H SUSAN Sherlyn Alicea MD sodium chloride 0.9% flush 0.5-20 mL 0.5-20 mL intra-catheter PRN Sherlyn Alicea MD sodium chloride 0.9% solution 3-12 mL/hr intra-catheter Continuous Sherlyn Alicea MD 3 mL/hr at 06/04/23 0700 3 mL/hr at 06/04/23 0700 tamsulosin (FLOMAX) extended release capsule 0.4 mg 0.4 mg oral Daily with dinner Sherlyn Alicea MD 0.4 mg at 06/04/23 0516 Family History: reports significant family history on both mother and father's side of significant HTN Social History Tobacco Use Smoking status: Never Smokeless tobacco: Never Substance and Sexual Activity Drug use: None Sexual activity: None Alcohol Use: Not on file Primary Care Physician: Unknown, Notinfile Primary Care Physician number: None Review of Systems: ROS was obtained and all negative except for as per HPI. Of note, patient is somewhat reticent to endorse symptoms and requires much encouragement to describe symptoms both from provider and from family members. Objective Vitals: Arrival Vitals Temp 06/03/23 1808 37.3 ??C (99.1 ??F) Pulse 06/03/23 1808 108 Resp 06/03/23 1808 18 BP 06/03/23 1808 (!) 193/119 SpO2 06/03/23 1808 97 % Temp src 06/03/23 2351 Oral Heart Rate Source 06/03/23 2351 Monitor Patient Position 06/03/23 2351 HOB 30 degrees BP Location 06/03/23 1814 Left arm FiO2 (%) -- Most Recent : Vitals: 06/04/23 0700 BP: Pulse: 72 Resp: 9 Temp: SpO2: 100% I/O last 2 completed shifts: In: 2126.6 [P.O.:240; I.V.:1836.6; IV Piggyback:50] Out: 120 [Urine:120] I/O this shift: In: 182.6 [I.V.:182.6] Out: - Physical exam: General appearance: appears stated age Constitutional: Uncomfortable, tearful Eyes: EOMI, anicteric Cardiovascular: tachycardic, regular rhythm Right Radial: palpable Right Femoral: multiphasic signal Right DP: palpable Left Radial: palpable Left Femoral: multiphasic signal Left DP: palpable Respiratory: non-labored breathing Skin: No ulceration GI: Soft, non-distended, TTP R hemiabdomen, RLQ>RUQ. No yaima peritonitis. No pusatile abdominalmass Muskuloskeletal: Extremities WWP. Motor and sensation intact all four extremities. Neuro: Alert and oriented x4, non-focal Lab/Radiology/Diagnostic Review: Laboratory review: Lab results in the last 24 hours: Recent Results (from the past 24 hour(s)) CBC with auto differential Collection Time: 06/03/23 6:30 PM Result Value Ref Range WBC 8.9 3.8 - 9.9 K/cumm Hgb 10.8 (L) 13.0 - 17.5 g/dL Hct 33.2 (L) 38.9 - 50.3 % Plt 399 150 - 400 K/cumm MPV 9.1 9.1 - 12.3 fL RBC 3.73 (L) 4.30 - 5.80 M/cumm MCV 89.0 81.3 - 96.4 fL MCH 29.0 27.1 - 33.3 pg MCHC 32.5 32.3 - 35.7 g/dL RDW CV 12.9 11.1 - 14.9 % RDW SD 41.5 35.7 - 48.1 fL NRBC abs 0.00 0.00 - 0.01 K/cumm Comprehensive metabolic panel Collection Time: 06/03/23 6:30 PM Result Value Ref Range Sodium 142 135 - 145 mmol/L Potassium, pl 3.6 3.3 - 4.9 mmol/L Chloride 105 97 - 110 mmol/L CO2 25 22 - 32 mmol/L Anion gap 12 2 - 15 mmol/L BUN 13 6 - 25 mg/dL Creatinine 1.17 0.80 - 1.30 mg/dL Glucose 130 70 - 199 mg/dL Calcium 9.9 8.5 - 10.3 mg/dL Bilirubin, total 0.3 0.1 - 1.2 mg/dL Protein, pl 9.3 (H) 6.5 - 8.5 g/dL Albumin 4.1 3.5 - 5.0 g/dL Alk phos 116 40 - 130 Units/L ALT 19 7 - 55 Units/L AST 10 10 - 50 Units/L Lipase Collection Time: 06/03/23 6:30 PM Result Value Ref Range Lipase 40 10 - 99 Units/L Troponin I high-sensitivity series (baseline, 2hr, 4hr, 6hr) Collection Time: 06/03/23 6:30 PM Result Value Ref Range Trop I hs 8 <=35 ng/L Differential, auto Collection Time: 06/03/23 6:30 PM Result Value Ref Range Neutrophil abs 6.3 1.5 - 6.5 K/cumm Imm gran abs 0.1 0.0 - 0.1 K/cumm Lymphocyte abs 1.8 0.8 - 3.3 K/cumm Monocyte abs 0.6 0.2 - 0.8 K/cumm Eosinophil abs 0.0 0.0 - 0.5 K/cumm Basophil abs 0.1 0.0 - 0.1 K/cumm Neutrophil pct 71.2 % Imm gran pct 0.7 % Lymphocyte pct 19.8 % Monocyte pct 7.2 % Eosinophil pct 0.5 % Basophil pct 0.6 % eGFR Collection Time: 06/03/23 6:30 PM Result Value Ref Range eGFR 85 >=60 mL/min/1.73 m2 POCT creatinine Collection Time: 06/03/23 6:36 PM Result Value Ref Range Creatinine POC 1.1 0.7 - 1.3 mg/dL Troponin I high-sensitivity 2-hour Collection Time: 06/03/23 8:21 PM Result Value Ref Range Trop I hs 11 <=35 ng/L Trop I hs delta 3 ng/L Trop I hs interp Insignificant Urinalysis reflex to microscopic Collection Time: 06/03/23 10:07 PM Result Value Ref Range Color, ur Straw Yellow Clarity, ur Clear Clear Specific gravity, ur >1.042 (H) 1.003 - 1.030 pH, urine 6.5 Protein, ur ql 1+ (A) Negative Glucose, ur ql Trace (A) Negative Ketones, ur Negative Negative Bilirubin, ur Negative Negative Blood, ur Trace (A) Negative Urobilinogen, ur <2.0 <2.0 mg/dL Nitrite, ur Negative Negative Leukocyte esterase, ur Negative Negative UA reflex comment Reflex to microscopic UA will be performed. Troponin I high-sensitivity 4-hour Collection Time: 06/03/23 10:07 PM Result Value Ref Range Trop I hs 10 <=35 ng/L Trop I hs delta 2 ng/L Trop I hs interp Insignificant Lactate Collection Time: 06/03/23 10:07 PM Result Value Ref Range Lactate 1.0 0.7 - 2.0 mmol/L Urinalysis, microscopic only Collection Time: 06/03/23 10:07 PM Result Value Ref Range WBC, ur 0-5 0 - 5 /HPF RBC, ur 0-2 0 - 2 /HPF Epithelial cells, squamous, ur 1-5 0 - 5 /HPF Bacteria, ur 1+ (A) Mucous, ur Present (A) Basic metabolic panel Collection Time: 06/04/23 12:42 AM Result Value Ref Range Sodium 141 135 - 145 mmol/L Potassium, pl 3.6 3.3 - 4.9 mmol/L Chloride 106 97 - 110 mmol/L CO2 24 22 - 32 mmol/L Anion gap 11 2 - 15 mmol/L BUN 13 6 - 25 mg/dL Creatinine 1.13 0.80 - 1.30 mg/dL Glucose 103 70 - 199 mg/dL Calcium 8.9 8.5 - 10.3 mg/dL Phosphorus Collection Time: 06/04/23 12:42 AM Result Value Ref Range Phosphorus, pl 4.0 2.3 - 4.5 mg/dL Magnesium Collection Time: 06/04/23 12:42 AM Result Value Ref Range Magnesium 1.8 1.4 - 2.5 mg/dL Calcium, ionized Collection Time: 06/04/23 12:42 AM Result Value Ref Range Calcium, Ionized 4.63 4.50 - 5.10 mg/dL CBC without differential Collection Time: 06/04/23 12:42 AM Result Value Ref Range WBC 8.9 3.8 - 9.9 K/cumm Hgb 9.2 (L) 13.0 - 17.5 g/dL Hct 28.6 (L) 38.9 - 50.3 % Plt 369 150 - 400 K/cumm MPV 9.0 (L) 9.1 - 12.3 fL RBC 3.22 (L) 4.30 - 5.80 M/cumm MCV 88.8 81.3 - 96.4 fL MCH 28.6 27.1 - 33.3 pg MCHC 32.2 (L) 32.3 - 35.7 g/dL RDW CV 12.9 11.1 - 14.9 % RDW SD 42.2 35.7 - 48.1 fL NRBC abs 0.00 0.00 - 0.01 K/cumm eGFR Collection Time: 06/04/23 12:42 AM Result Value Ref Range eGFR 89 >=60 mL/min/1.73 m2 Lactate, whole blood Collection Time: 06/04/23 1:00 AM Result Value Ref Range Lactate, bld 1.5 0.7 - 2.0 mmol/L Type and screen Collection Time: 06/04/23 1:54 AM Result Value Ref Range Ellen, indirect Negative ABO Rh A Positive Protime-INR Collection Time: 06/04/23 1:54 AM Result Value Ref Range PT 15.8 (H) 10.3 - 13.7 sec INR 1.39 (H) 0.90 - 1.20 aPTT Collection Time: 06/04/23 1:54 AM Result Value Ref Range aPTT 35 28 - 38 sec Blood gas, arterial Collection Time: 06/04/23 2:33 AM Result Value Ref Range pH, Art 7.35 7.35 - 7.45 PCO2, Arterial 44 35 - 45 mmHg PO2, Arterial 73 (L) 83 - 108 mmHg HCO3 Art (Calculated) 25 20 - 30 mmol/L BE, art -1 mmol/L O2 Sat Art (Measured) 94 90 - 95 % Magnesium Collection Time: 06/04/23 6:09 AM Result Value Ref Range Magnesium 2.5 1.4 - 2.5 mg/dL Phosphorus Collection Time: 06/04/23 6:09 AM Result Value Ref Range Phosphorus, pl 4.6 (H) 2.3 - 4.5 mg/dL CBC without differential Collection Time: 06/04/23 6:09 AM Result Value Ref Range WBC 8.8 3.8 - 9.9 K/cumm Hgb 8.2 (L) 13.0 - 17.5 g/dL Hct 25.8 (L) 38.9 - 50.3 % Plt 347 150 - 400 K/cumm MPV 8.9 (L) 9.1 - 12.3 fL RBC 2.89 (L) 4.30 - 5.80 M/cumm MCV 89.3 81.3 - 96.4 fL MCH 28.4 27.1 - 33.3 pg MCHC 31.8 (L) 32.3 - 35.7 g/dL RDW CV 13.0 11.1 - 14.9 % RDW SD 42.8 35.7 - 48.1 fL NRBC abs 0.00 0.00 - 0.01 K/cumm Lactate, whole blood Collection Time: 06/04/23 6:09 AM Result Value Ref Range Lactate, bld 1.7 0.7 - 2.0 mmol/L eGFR Collection Time: 06/04/23 6:09 AM Result Value Ref Range eGFR 55 (L) >=60 mL/min/1.73 m2 Basic metabolic panel Collection Time: 06/04/23 6:09 AM Result Value Ref Range Sodium 140 135 - 145 mmol/L Potassium, pl 4.5 3.3 - 4.9 mmol/L Chloride 109 97 - 110 mmol/L CO2 22 22 - 32 mmol/L Anion gap 9 2 - 15 mmol/L BUN 16 6 - 25 mg/dL Creatinine 1.70 (H) 0.80 - 1.30 mg/dL Glucose 126 70 - 199 mg/dL Calcium 8.5 8.5 - 10.3 mg/dL Imaging review: I have reviewed the result(s) CTA Narrative & Impression EXAMINATION: CT ANGIOGRAPHY OF THE CHEST, ABDOMEN AND PELVIS WITH AND WITHOUT CONTRAST HISTORY: 33-year-old status post endovascular stent graft 05/02/2023. Now with bilateral flank pain radiating to abdomen. Also with nausea TECHNIQUE: Computed tomographic images of the chest, abdomen and pelvis were acquired without and intravenous contrast using an angiographic protocol optimized for aortic dissection (aorta). The contrast enhanced transaxial images were obtained following the intravenous administration of 92 ml of nonionic contrast. Multiplanar reformatted images and three-dimensional images of the aorta and associated vasculature were obtained on the 3-D workstation and sent to the PACS archival system. COMPARISON: 05/16/2023 CT FINDINGS: Chest: Postoperative changes of type B aortic dissection status post thoracic endovascular aortic repair with left subclavian stent. The proximal attachment site just proximal to the origin of the left common carotid artery and the distal attachment site the descending thoracic aorta the level of the left atrium. The stent graft is patent. There is continued stenosis at the origin of the left subclavian stent graft. This is similar to prior. No evidence of stent migration or endoleak. The dissection flap extends inferiorly to the level of the left common iliac artery, unchanged. There is increased opacification of the false lumen of the false lumen which is likely due to fenestration at the level of the the level of the distal esophagus and also at the renal arteries. There is slight enlargement of the aorta just distal to the stent graft. . There is decreasing thrombus within the false lumen. The false lumen size has increased in size measuring Overall aorta diameter is unchanged in size. At the level of the diaphragmatic hiatus: 40 x 30 mm, unchanged when remeasured on similar axes. At the proximal ascending thoracic aorta: 34 x 35 mm, unchanged when remeasured. At the descending thoracic aorta at the level just distal to the stent graft: 38 x 35 mm, previously 33 x 33 mm The false lumen has increased in size now measuring 39 x 32 mm, previously 39 x 22 mm. The celiac artery arise from the false lumen. The superior mesenteric artery, both renal arteries, and inferior mesenteric artery arise from the true lumen. The left renal artery immediately arises from the true lumen. The pelvic vasculature is patent. Nonvascular findings: Imaged thyroid is normal. No thoracic adenopathy. Normal heart size. No pericardial effusion. The lungs are clear. No pleural effusion or consolidation. No pneumothorax. Patent central airways. Hemangioma within hepatic segment 4, otherwise normal. Normal gallbladder, spleen, pancreas, both adrenal glands. Multiple punctate nonobstructing stones in both kidneys, unchanged. No hydronephrosis. Urinary bladder is fluid-filled. Prostate is present. No free fluid or free air. Mild colonic diverticulosis. Normal appendix. No evidence of bowel wall thickening or obstruction. No abdominal or pelvic lymphadenopathy. Trace of cutaneous edema along the posterior neck soft tissues. No suspicious osseous lesion. IMPRESSION: 1. Changes of type B aortic dissection status post thoracic endovascular aortic repair and stenting of the left subclavian artery, with unchanged stenosis of the left subclavian artery stent. Continued increase in size of false lumen and decreased thrombus within the false lumen at the level of the descending thoracic aorta just distal to the stent graft. Increasing contrast opacification of the false lumen likely from fenestration at the level of the diaphragmatic hiatus and renal arteries. 2. Unchanged nonobstructive bilateral nephrolithiasis, otherwise no acute findings in the chest abdomen or pelvis to explain patient's abdominal pain. Dictated by: Julieth Ballard MD ADDENDUM - This addendum is being placed on the report for a time dependent finding on a patient who is still in the emergency room (3B). After review the attending physician, the following additional comments are made: Just inferior to the distal aspect of the stent, there has been erosion of the intimomedial flap with a short segment of aorta that has no demonstrable flap (and and thus the left aspect of its wall is from the previous falls lumen) measuring 5 cm in length. Just inferior to this, the true lumen can be seen medially, but is very small. There is also some remodeled thrombus within the aorta just distal to the stent, that was previously in the false lumen. The aorta just distal to the stent has also dilated and is somewhat lobular along the portion that was previously false lumen, now measuring 4.3 x 4.2 cm versus 3.8 x 3.8 cm on the prior. Of note, the celiac axis arises from the false lumen while the superior mesenteric artery is primarily arising from the true lumen. Both renals arise from the true lumen although the flap is very close to the left renal origin. The inferior mesenteric artery arises from the true lumen. Thus, the patient's pain may be secondary to the collapse of the true lumen restricting blood flow to its branch vessels, potential emboli from the irregular thrombus just below the stent that now communicates with the major path of blood flow, or perhaps from the dilatation of the aorta below the stent. Of note, although the aorta is lobular, there is no surrounding stranding or blood. These findings were communicated to Dr. Samuel and Dr. Manzano by Dr. Baker immediately upon identification of the findings at readout at 9 pm on 06/03/23. The radiology attending physician has personally reviewed this study, and had reviewed and/or edited this written report and agrees with it. Electronically signed by: Telly Baker M.D. Assessment /Plan Patient is a 33 y.o. male with type B aortic dissection from zone 2 through 10 previously managed in the setting of severe pain and progression on serial imaging with TBE on 05/02/23. Course complicated by refractory hypertension and transient spinal cord ischemia managed with lumbar drain with recovery of motor and sensation in the BLE. Now returns with increased abdominal and back pain, SBP 200, and concern for progression on CT. Recommendations for Mr. Chau are as follows: - Admit to CTICU - serial abdominal exams with close monitoring for any signs of mesenteric ischemia - q6 labs including lactate, CBC, BMP - impulse control for SBP <120, HR <60. Vascular surgery will continue to follow. Please call [phone] with vascular consult questions 20/12. Cosigned by Alonzo Duncan MD at 06/06/2023 7:25 AM CLOD PULLER PULLER PULLER documented in this encounter Nursing Notes * Maki, Jessica Fausto, RN - 06/07/2023 3:13 PM CST Lumbar drain removed by MD Jerome via bedside (see MD note). VO to monitor neurovascular, neuromotor, and drain site every hour x4 and to remain on bedrest with HOB flat. Care ongoing. PULLER PULLER PULLER PULLER * Jessica Gambino RN - 06/06/2023 4:20 PM CST 06/06/23 1545 Vitals Pulse 88 Resp 18 SpO2 (!) 85 % Art Line Arterial Line BP 114/56 Arterial Line MAP (mmHg) 74 mmHg Per order, this RN clampled pts lumbar drain @ 1500. 15:45, this RN attempted to sit pt at bedside when pts SpO2 decreased to 85% on 2 L/min O2 via NC and SBP decreased from 150s to 114. This RN increased O2 to 6 L/min O2 via NC, stopped Clevidipine infusion, and placed pt back in bed in Semi fowlers position. Pts SBP increased and SpO2 increased to 100%. Pt denied headache, lightheadedness, vision changes, numbness/tingling. SALESPERSON TERRAZZO TILES Vianey made aware of the situation. Care ongoing. PULLER PULLER * Shirley Horan RN - 06/05/2023 4:33 PM CST Pt returned to 5612 from [facility]. Spinal drain in place, draining clear fluid. Assessments as noted inflowsheets. Clevidipine restarted for Systolic 140-160. PULLER * Shirley Horan RN - 06/05/2023 1:20 PM CST Patient admitted to 5612 s/p redo TEVAR by MD Samuel. All critical hookups complete. Drips infusing per MAR, Report given by OR staff to ICU staff. Patient converted to ICU level of care. Skin assessment complete. Any area of concern noted in complex assessment. EPC, turn schedule, allevyn foam and special bed in place as prevention. PULLER documented in this encounter ED Notes * Tressa Sorensen MD - 06/03/2023 6:36 PM CST HPI Chief Complaint Patient presents with Post-op Problem HPI: 33 y.o. male with PMH HTN, thoracoabdominal dissection sp TEVAR, present to the ED with bilateral flank pain. Per the patient, this started yesterday, denies chest pain, shortness of breath, abdominal pain. Has been hypertensive, endorses compliance with blood pressure medication. Mom at bedside says that bp has been high for about a week. HOme med: carvedilol 12.5 bid, asa, oxy prn History Information obtained from: patient only Chart note(s) reviewed to augment HPI: discharge summary note dated 05/16/2023 HPI Patient History: Patient Active Problem List Diagnosis Date Noted Dissection of abdominal aorta (CMS/HCC) (HCC) 06/03/2023 Urinary retention 05/16/2023 Epistaxis 05/13/2023 Pneumonia 05/13/2023 HTN (hypertension) 05/13/2023 Dissection of thoracoabdominal aorta (CMS/HCC) (HCC) 05/02/2023 Dissection of aorta, unspecified portion of aorta (HCC) 05/01/2023 History reviewed. No pertinent past medical history. History reviewed. No pertinent surgical history. History reviewed. No pertinent family history. Social History Tobacco Use Smoking status: Never Smokeless tobacco: Never Substance and Sexual Activity Alcohol use: None Drug use: None Sexual activity: None Social History Social History Narrative Not on file Review of Systems Review of Systems Physical Exam ED Triage Vitals Temp Pulse Resp BP SpO2 06/03/23 1808 06/03/23 1808 06/03/23 1808 06/03/23 1808 06/03/23 1808 37.3 ??C (99.1 ??F) 108 18 (!) 193/119 97 % Temp src Heart Rate Source Patient Position BP Location FiO2 (%) 06/03/23 2351 06/03/23 2351 06/03/23 2351 06/03/23 1814 -- Oral Monitor HOB 30 degrees Left arm Height Height Method Weight Weight Method 06/03/23 1808 06/04/23 0105 06/03/23 1808 06/04/23 0600 1.753 m (5' 9 ) Stated 99.8 kg (220 lb) Bed scale Physical Exam HENT: Head: Normocephalic and atraumatic. Cardiovascular: Rate and Rhythm: Normal rate and regular rhythm. Pulses: Normal pulses. Pulmonary: Effort: Pulmonary effort is normal. Abdominal: Tenderness: There is abdominal tenderness. Skin: General: Skin is warm. Neurological: General: No focal deficit present. Mental Status: He is alert. [facility] Medical Decision Making Assessment: 33 y.o. male with PMH HTN, thoracoabdominal dissection sp TEVAR, present to the ED withbilateral flank pain. Social Determinants of Health with affecting my care of this patient: None - no SDOH negatively impacting care, or only positive SDOH Differential diagnoses: concern for worsening dissection, especially given persistent htn, possiblebowel ischemia, lower suspicion for acute renal infarction as patient does not endorse end organ dysfxn, possible thrombosis of stent, lower suspicion for infxn process Plan: 1) Labs: cbc,cmp, trop, lactate 2) Imaging/ECG: cta chest abd pelvis 3) Therapeutics:pending workup, will need bp management given SBP in 180s on arrival 4) Dispo: admission Portions of the record may have been created with voice recognition software. Occasional wrong-word or '[id number]' substitutions may have occurred due to the inherent limitations of voice recognition software. Read the chart carefully and recognize, using context, where substitutions have occurred. Amount and/or Complexity of Data Reviewed Independent Historian: parent External Data Reviewed: notes. Labs: ordered. Radiology: ordered. ECG/medicine tests: ordered and independent interpretation performed. Risk Prescription drug management. Decision regarding hospitalization. Attending Summary of Care ED Course as of 06/06/23 1213 Time: 06/03 1826 Comment: 05/16/23 CT surgery Dissection of thoracoabdominal aorta Patient presented on 05/01 with acute Chest [...] knee flexion, c/f spinal cord ischemia. - Neurology and NSGY consulted and placed lumbar drain. - Total spine MRI with dorsal hematoma and assoc displacement of cauda equina nerve roots, no evidence of ischemia - Lumbar drain removed 05/10 - LE weakness now recovering. PT/OT have cleared for home without further therapy. - Goal SBP less than 180. Started on beta louie (Coreg) with BP at goal. - Dr. Abarca consulted pre-operatively and believed this was due to uncontrolled HTN, did not have signs of genetic aortopathy. Recommended beta louie therapy. - Repeat CTA 05/16 reviewed by surgical team and stable, plan to repeat scan in 4 weeks as outpatient. Urinary retention Patient with urinary retention requiring straight cath X1 05/15, now voiding without any issues. - Continue Flomax. - Patient requests urology follow up, referral placed. HTN (hypertension) Hx of uncontrolled HTN, non-compliant to medications. - Need to avoid hypotension in post TEVAR period. - SBP goal less than 180. - Currently on Coreg 12.5mg BID. Pneumonia Tracheal aspirate 05/05 with Haemophilus Inf - susana(05/04 - 05/10), linezolid (05/04-05/06) - Extubated and then weaned off oxygen without issues. Stable on room air prior to discharge. Epistaxis Significant nose bleed in the OR requiring intra-op ENT c/s. DL performed, no other sources of bleeding visualized. ACT post protamine 149. - ocean spray tid - no other s/s bleeding By: Tressa Sorensen MD Time: 06/03 1826 Comment: ED attending-Franchesca. 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 Since being at home mom says he has been having off and on bouts of severe abdominal and chest pain in his blood pressure has not been well controlled. Symptoms severe enough today that mom and girlfriend decided to bring him to the ED. They have not notified thoracic surgery that patient has been having problems. Appointment with them is not until 2 weeks from now. Nofever chills no productive cough no nausea vomiting diarrhea reported. Mom says that he just gets these waves of abdominal and chest pain but that he does not want to come back to the hospital so hasnot been saying anything other than to the girlfriend. He reports some continued numbness feet. Given sxs worried about recurrent dissection plan to get repeat CTA chest and abd. By: Tressa Sorensen MD Time: 06/03 1916 Comment: BP is climbing despite being settled down. Will start Labetolol while awaiting CTA By: Tressa Sorensen MD Time: 06/03 2046 Comment: CT abdomen pelvis completed the type B dissection is noted with post interventional changes not felt to be worse or with increased dissection. False lumen if anything is improved. Also incidental finding of bilateral kidney stones this may explain some of the patient's pain they are stableand unchanged as well from prior study. Will ask [facility] surgery to get involved. Have started labetolol for the HTN. By: Tressa Sorensen MD Time: 06/03 2056 Comment: Vascular surgery called back they said they would be down I informed them of patient's blood pressure and also the results of tonight CT abdomen By: Tressa Sorensen MD Time: 06/03 2126 Comment: [facility] surgery at bedside pt's BP is 200 starting esmolol drip aiming for MAP of 70-90 By: Tressa Sorensen MD Time: 06/03 2212 Comment: BP slowly coming down will titrate up esmolol and also adjust pain meds. [facility] plan to admit to CTICU By: Tressa Sorensen MD Time: 06/03 2306 Comment: Has a ready bed for CTICU By: Tressa Sorensen MD Dissection of abdominal aorta (CMS/HCC) (HCC) Abdominal pain determined by examination HTN (hypertension), malignant I have seen and examined the patient on 06/03/2023. I agree with the findings and plan of care as documented in the resident's note. Nona Herrera MD Resident 06/04/23 [id number] Tressa Sorensen MD 06/06/23 1213 PULLER PULLER * Sreekanth Thomas RN - 06/03/2023 6:25 PM CST Bed: [facility] Expected date: Expected time: Means of arrival: Comments: Triage Sreekanth Thomas RN 06/03/23 1825 PULLER * Nicole Hoang RN - 06/03/2023 5:59 PM CST Pt pmhx HTN, kidney stones, thoracoabdominal aortic dissection s/p thoracic endovascular repair on 05/01 presents to ED c/o bilateral flank pain radiating to abdomen x2 days. Pt states I wake up in the morning, I feel [the pain], and then it goes away. Today it didn't go away. +nausea. Abdomen pain is sharp, feels like someone is stabbing me on my sides. Tender upon palpation. Denies chest pain/shortness of breath/urinary problems. GCS 15 PULLER documented in this encounter Miscellaneous Notes * Provider Query - Nikhil Samuel MD - 06/11/2023 12:[address] Samuel, This patient who had a recent TEVAR done for dissection of abdominal aorta, was readmitted with concern for further tear of same and underwent another TEVAR to cover a new entry tear. Can you clarify if this new tear was due to / complication of, the previous recent graft -or- if its unrelated to the recent graft. ___ Due to recent TEVAR graft ___ Unrelated to recent TEVAR graft _X__ Can not rule out (Possibly) that its a complication of recent graft. ___ Other, specify below Additional Provider Response: Likely new entry tear distal to stent Clinical Indicators/Treatments: As above, patient with recent TEVAR for aortic tear now presents with new tear and undergoes another TEVAR procedure. References: From the ICD-10-CM Official Guidelines for Coding and Reporting, use of terms such as likely, suspected, possible, or probable (associated with a specific diagnosis that is being evaluated, monitored, or treated as if it exists) are acceptable and can be coded in the inpatient setting when documented at the time of discharge. This documentation will become part of the patient???s medical record. Sincerely, Tressa Pike [facility] Information Management PULLER * Plan of Care - Rita Braden RN - 06/11/2023 8:07 AM CST Problem: Lack of Knowledge: Goal: Ability to [...] Pain level will decrease Outcome: Progressing Problem: Health Behavior: Goal: Understanding of discharge [...] home environment Outcome: Progressing Problem: Activity: Goal: Mobility will [...] Progressing Goals: Clinical Goals for the Shift: pain managment, maintain safety and comfort, VSS Summary: Plan of care discussed with patient. PULLER * Assessment & Plan Note - Joaquín Abarca MD - 06/11/2023 7:50 AM CLOD PULLER Associated Problem(s): Dissection of thoracoabdominal aorta (CMS/HCC) (HCC) Clinically stable. Renal function stable. Blood pressure improved We will recommend genetic testing as an outpatient PULLER * Assessment & Plan Note - Joaquín Abarca MD - 06/11/2023 7:50 AM CLOD PULLER Associated Problem(s): HTN (hypertension) Patient hypertensive. Recommend resuming hydralazine 25 mg 3 times a day. Continue the amlodipine and carvedilol. Follow-up blood pressure. The patient should have follow-up blood pressure when he leaves the hospital as well. PULLER * Subjective & Objective - Joaquín Abarca MD - 06/11/2023 7:48 AM CLOD PULLER Cardiology Daily Progress Note Patient Name: Eriberto Chau Provider: Joaquín Abarca MD : 1990 Date of Service: 06/11/2023 CHIEF COMPLAINT: Hypertension SUBJECTIVE: Patient feels well. No chest pain or shortness of breath. Lower Back symptoms improved. Hydralazinewas weaned and discontinued but blood pressure elevated over the past 12 hours. I have reinstitutedhydralazine this morning. MEDICATIONS: acetaminophen, 1,000 mg, oral, Q6H SUSAN amLODIPine, 5 mg, oral, Daily aspirin, 81 mg, oral, Daily bisacodyL, 10 mg, rectal, Daily carvediloL, 25 mg, oral, BID with meals (bkfst, dinner) docusate sodium, 100 mg, oral, BID enoxaparin, 40 mg, subcutaneous, Daily-2100 gabapentin, 300 mg, oral, TID hydrALAZINE, 25 mg, oral, TID methocarbamoL, 750 mg, oral, TID polyethylene glycol, 17 g, oral, BID QUEtiapine, 50 mg, oral, Nightly senna, 1 tablet, oral, BID sodium chloride 0.9%, 0.5-20 mL, intra-catheter, Q8H SUSAN tamsulosin, 0.8 mg, oral, Daily with dinner REVIEW OF SYSTEMS: General: No fever, chills, malaise or fatigue Eyes: No alterations in visual acuity ENT: No alterations in auditory acuity, no sore throat Pulmonary: No dyspnea, cough or hemoptysis Cardiac: No chest pain, orthopnea, PND or palpitations GI: No nausea, vomiting, diarrhea or constipation Musculoskeletal: No myalgias or arthralgias Skin: no rashes Neuro: No headaches, parathesias or focal neurological complaints Endocrine: No cold or heat intolerance Heme: no excessive bleeding or bruising PHYSICAL EXAM: Vitals: 06/11/23 0314 06/11/23 0400 06/11/23 0600 06/11/23 0707 BP: (!) 154/109 (!) 161/109 BP Location: Left arm Patient Position: Lying Pulse: 95 91 Resp: 17 12 Temp: 37 ??C (98.6 ??F) 36.8 ??C (98.3 ??F) TempSrc: Oral Oral SpO2: 92% 95% Weight: 100.7 kg (222 lb 0.1 oz) Height: Intake/Output Summary (Last 24 hours) at 06/11/2023 0748 Last data filed at 06/11/2023 0600 Gross per 24 hour Intake 460 ml Output 1525 ml Net -1065 ml General: Well appearing, No pain or [...] awake/alert LAB/RADIOLOGY/DIAGNOSTIC REVIEW: Recent Labs Lab Units 06/11/23 0321 06/10/23 0524 06/08/23 2053 HEMOGLOBIN g/dL 10.2* 10.7* 9.6* HEMATOCRIT % 32.6* 32.8* 30.9* WBC K/cumm 8.7 9.5 10.9* PLATELETS K/cumm 334 333 232 Recent Labs Lab Units 06/11/23 0321 SODIUM mmol/L 143 POTASSIUM PLASMA mmol/L 3.8 CHLORIDE mmol/L 107 CO2 mmol/L 23 ANIONGAP mmol/L 13 GLUCOSE mg/dL 107 BUN SERUM mg/dL 12 CREATININE mg/dL 0.80 CALCIUM mg/dL 9.1 XR Chest 1 View Result Date: 06/10/2023 The current study is compared with the prior radiograph dated 06/09/2023. Patient is status post endoluminal aortic stent graft with a left subclavian stent as well , appearance is unchanged. The heart is mildly enlarged. There is no pneumothorax.. There is no mass or lymphadenopathy no pleural effusions Electronically signed by: Floridalma Oliva M.D. CTA Chest Abdomen Pelvis Result Date: 06/10/2023 Interval expected postoperative changes of inferior extension of the thoracic aorta endovascular stent graft and stent placement within the true lumen of the visceral abdominal aorta for management of type B aortic dissection. The true lumen is expanded in caliber compared to prior. There is retrograde opacification of the false lumen at the level of the distal descending thoracic aorta above thehiatus and through the level of the celiac artery due to fenestration in the visceral segment as described on completion aortogram. Dictated by: Corrie Monteiro M.D. The radiology attending physician has personally reviewed this study, and had reviewed and/or edited this written reportand agrees with it. Electronically signed by: Bassam Dykes M.D. XR Chest 1 View Result Date: 06/10/2023 Again noted is changes of thoracic and upper abdominal aortic stent graft. Left subclavian stent overlies chest. Mild left lower lobe atelectasis increased from prior radiograph. Low lung volumes. Nopleural effusion. No pneumothorax. Cardiac silhouette stable from prior radiograph. Dictated by: Delta Doss MD The radiology attending physician has personally reviewed this study, and had reviewed and/or edited this written report and agrees with it. Electronically signed by: James Alvarado M.D. Labs as reported above personally reviewed. Electrolytes stable. Creatinine stable. Potassium stable. Sodium stable. PULLER * Plan of Care - Leticia Navas RN - 06/10/2023 9:17 PM CST Problem: Lack of Knowledge: Goal: Ability to [...] Pain level will decrease Outcome: Progressing Problem: Health Behavior: Goal: Understanding of discharge [...] home environment Outcome: Progressing Problem: Activity: Goal: Mobility will [...] to fullest extent possible Outcome: Progressing Goals: Pain control NV checks Monitor vitals/labs/I&O's B/P control Discharge tomorrow? Remain free from falls Sleep hygiene Summary: Defense Attorney Patient Centered Goal for Treatment: to go home and not come back Agree with patient centered goal: yes PULLER * Plan of Care - Jill Dunn RN - 06/10/2023 1:25 PM CST Problem: Lack of Knowledge: Goal: Ability to [...] Ability to cope will improve Outcome: Progressing PULLER * Plan of Care - Edel Sharp RN - 06/09/2023 9:41 PM CST Problem: Medication: Goal: Satisfaction with pain management regimen will improve Outcome: Progressing Problem: Coping: Goal: Ability to cope will improve Outcome: Progressing Problem: Safety: Goal: Will remain free from falls Outcome: Progressing Problem: Nutritional: Goal: Dietary intake will improve Outcome: Progressing Goals: Clinical Goals for the Shift: VSS, pain management, neurovasc checks Summary: pt will remain free from falls and injuries , bed in lowest position, slip resistance socks on, pt nutritional intake is good, pt pain will be assessed and meds given per orders, pt will be informed about POC, will continue to monitor PULLER * Assessment & Plan Note - Shannon Bran NP - 06/09/2023 11:53 AM CLOD PULLER Associated Problem(s): Dissection of thoracoabdominal aorta (CMS/HCC) (HCC) Presents with abdominal pain and concern for progression of dissection on CT - 06/05/23: OR s/p TEVAR extension and dissection stent placement - BP management per HTN - pain control - Q4 NV checks, Q2 VS - lovenox DVT ppx - He will f/u with Dr. Abarca as outpatient for genetics testing. PULLER PULLER PULLER * Assessment & Plan Note - Shannon Bran NP - 06/09/2023 11:43 AM CLOD PULLER Associated Problem(s): HTN (hypertension) Goal systolic BP 140-180 for one month post-op for spinal cord perfusion. Systolic BP currently below goal. - Dr. Abarca following - decreased carvedilol to 12.5 bid - Per Dr. Abarca: Plan to wean off hydral. Reduce hydral to 25 TID, to be dosed for systolic >140 and start amlodipine 5 on 06/09. Hydral dc'd. Coreg increased 06/10. - continue OU status PULLER PULLER PULLER PULLER PULLER * Assessment & Plan Note - Joaquín Abarca MD - 06/09/2023 10:54 AM CLOD PULLER Associated Problem(s): Dissection of thoracoabdominal aorta (CMS/HCC) (HCC) Clinically stable. Renal function stable. Blood pressure improved We will recommend genetic testing as an outpatient PULLER * Assessment & Plan Note - Joaquín Abarca MD - 06/09/2023 10:54 AM CLOD PULLER Associated Problem(s): HTN (hypertension) Blood pressure well controlled at present. Medicines are being adjusted. Currently on carvedilol and hydralazine. A want to transition to amlodipine 5 mg a day to wean hydralazine, as tolerated, as 3 times a day medication can be difficult long-term PULLER * Subjective & Objective - Joaquín Abarca MD - 06/09/2023 10:34 AM CLOD PULLER Cardiology Daily Progress Note Patient Name: Eriberto Chau Provider: Joaquín Abarca MD : 1990 Date of Service: 06/09/2023 CHIEF COMPLAINT: hypertension SUBJECTIVE: Pt feeling generally well. Has some low back pain--a symptom he has had before before hospitalization that he relates to the back primarily. No chest pain, sob. Bp well controlled past day. No weakness or paresthesias in legs MEDICATIONS: acetaminophen, 1,000 mg, oral, Q6H SUSAN aspirin, 81 mg, oral, Daily bisacodyL, 10 mg, rectal, Daily carvediloL, 12.5 mg, oral, BID with meals (bkfst, dinner) docusate sodium, 100 mg, oral, BID enoxaparin, 40 mg, subcutaneous, Daily-2100 gabapentin, 300 mg, oral, TID hydrALAZINE, 50 mg, oral, TID methocarbamoL, 750 mg, oral, TID polyethylene glycol, 17 g, oral, BID QUEtiapine, 50 mg, oral, Nightly senna, 1 tablet, oral, BID sodium chloride 0.9%, 0.5-20 mL, intra-catheter, Q8H SUSAN tamsulosin, 0.8 mg, oral, Daily with dinner REVIEW OF SYSTEMS: General: No fever, chills, malaise or fatigue Eyes: No alterations in visual acuity ENT: No alterations in auditory acuity, no sore throat Pulmonary: No dyspnea, cough or hemoptysis Cardiac: No chest pain, orthopnea, PND or palpitations GI: No nausea, vomiting, diarrhea or constipation Musculoskeletal: No myalgias or arthralgias other than that in HPI Skin: no rashes Neuro: No headaches, parathesias or focal neurological complaints Endocrine: No cold or heat intolerance Heme: no excessive bleeding or bruising PHYSICAL EXAM: Vitals: 06/09/23 0400 06/09/23 0600 06/09/23 0700 06/09/23 0852 BP: 142/78 110/73 126/78 126/91 BP Location: Right arm Right arm Right arm Left arm Patient Position: Lying Lying Lying Pulse: 94 93 87 99 Resp: Temp: 36.7 ??C (98 ??F) 36.4 ??C (97.5 ??F) TempSrc: Oral Oral SpO2: 95% 95% 94% 99% Weight: Height: Intake/Output Summary (Last 24 hours) at 06/09/2023 1034 Last data filed at 06/09/2023 0445 Gross per 24 hour Intake 403.05 ml Output 750 ml Net -346.95 ml General: Well appearing, No pain or [...] normal affect Neurologic: awake/alert, no focal deficits LAB/RADIOLOGY/DIAGNOSTIC REVIEW: Recent Labs Lab Units 06/08/23205206/08/23 0003 06/07/23 0011 HEMOGLOBIN g/dL 9.6* 10.9* 11.1* HEMATOCRIT % 30.9* 31.8* 33.1* WBC K/cumm 10.9* 11.8* 11.2* PLATELETS K/cumm 232 260 270 Recent Labs Lab Units 06/08/23205206/03/23 1836 06/03/23 1830 SODIUM mmol/L 136 < > 142 POTASSIUM PLASMA mmol/L 3.7 < > 3.6 CHLORIDE mmol/L 101 < > 105 CO2 mmol/L 26 < > 25 ANIONGAP mmol/L 9 < > 12 GLUCOSE mg/dL 164 < > 130 POC GLUCOSE MONITOR -- < > -- BUN SERUM mg/dL 17 < > 13 CREATININE mg/dL 1.01 < > 1.17 CREATININE POC -- < > -- CALCIUM mg/dL 8.6 < > 9.9 ALBUMIN g/dL -- -- 4.1 ALK PHOS Units/L -- -- 116 ALT Units/L -- -- 19 AST Units/L -- -- 10 BILIRUBIN TOTAL mg/dL -- -- 0.3 < > = values in this interval not displayed. XR Chest 1 View Result Date: 06/09/2023 The current study is compared with the prior radiograph dated 06/07/2023 at 9:24 PM. Patient is status post aortic and subclavian stent placement. Lungs are clear. No pleural effusion or pneumothorax. Heart size unchanged. Dictated by: Dc Berrios MD XR Chest 1 View Result Date: 06/08/2023 Changes of thoracic and abdominal aortic stent graft with left subclavian stent. The lungs are clear without focal opacity. There is no pleural effusion. There is no pneumothorax. Cardiac silhouette is stable from prior radiograph. Dictated by: Delta Doss MD The radiology attending physician haspersonally reviewed this study, and had reviewed and/or edited this written report and agrees with i t. Electronically signed by: Gen Baker M.D. Lower Extremity Left Limited Result Date: 06/07/2023 1. No pseudoaneurysm or arteriovenous fistula of the left groin. 2. No groin hematoma. Dictated by:Sherri Banerjee MD The radiology attending physician has personally reviewed this study, and had reviewed and/or edited this written report and agrees with it. Electronically signed by: Monster Easley M.D. PULLER * Plan of Care - Nakita Mcbride LCSW - 06/09/2023 9:50 AM CLOD PULLER Social Work attempted to follow up with patient regarding employment, financial assistance, and mental health resources. Patient was asleep and did not awaken when Social Work quietly stated his name. Social Work left resources on bedside table. Social Work available should patient have questions regarding resources. No further Social Work needs identified at this time. LIZZ Lott LCSW Please see [facility] Treatment Team for contact information. PULLER PULLER * Plan of Ann - Jill Dunn RN - 06/09/2023 9:14 AM CST Problem: Lack of Knowledge: Goal: Ability to [...] Ability to cope will improve Outcome: Progressing PULLER * Plan of Ann - Linda Betancourt RN - 06/09/2023 5:13 AM CST Goals: Clinical Goals for the Shift: VSS, pain management, neurovasc checks Summary: clinical goals for shift met. Problem: Lack of Knowledge: Goal: Ability to [...] Pain level will decrease Outcome: Progressing Problem: Health Behavior: Goal: Understanding of discharge [...] home environment Outcome: Progressing Problem: Activity: Goal: Mobility will [...] improve to fullest extent possible Outcome: Progressing PULLER * Plan of Ann - Alysa Barillas RRT - 06/08/2023 4:22 PM CST Toleration - Patient tolerated without issue.. Bronchial Hygiene Assessment Score - 7 Pulmonary Status Negative History Surgical Status Thoracic or Upper Abdominal Chest X-ray Infiltrates, Lung Mass, Atelectasis, Pleural Effusion Respiratory Pattern Regular, Respiratory Rate < 20 Mental Status Alert, Cooperative Cough Strong, Non-Productive Breath Sounds Decreased Bilaterllly Activity Level Ambulatory O2 Requirement No Oxygen Pt Score Level Suggested Frequency 1-12 1 Turn to bedside for RN to encourage deep breath and cough, IS, or OOB - TID 13-24 2 Implement chosen bronchial hygiene mode with a suggested frequency of - TID 25-36 3 Implement chosen bronchial hygiene mode with a suggested frequency of - TID to Q4 hours Note: Score gives a general indication of pulmonary risk. Clinical judgement may yield a different recommended therapy or frequency. Indications for CPT - Patient has an impaired ability to mobilize copious secretions. Contraindications for CPT - NONE. Plan - Continue CPT as ordered and continue to assess the patient. PULLER * Initial Assessments - Nakita Mcbride LCSW - 06/08/2023 2:46 PM CLOD PULLER Social Work Assessment Clinical Dx: Dissection of abdominal aorta (CMS/HCC) (HCC) Past Medical History: Date of last inpatient admission: Previous admit date: 05/01/2023 Number of inpatient admissions in past year: 2 Reason for Current Hospitalization (Pt/Caregiver Stated): Trouble walking (06/08/231438) Patient Information: Information Obtained From: Patient Marital Status: Not Does Pt have Legal Guardian, Surrogate Decision Maker or Healthcare Agent? 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 Source: Medicaid Race: White/ Ethnicity: Non- Sexual Orientation : ERI Gender Identity: Male Service : None (06/08/231438) Current Situation: Current Situation Living Arrangements: Spouse/significant other, Children Type of Residence: Private residence Income: Employed Financial assistance: Unknown Education Level : Unable to assess How do you Pay for Medication: Insurance Current Transportation: Family/friends What do you do with your Free Time: Spending time with my family (06/08/231438) Legal History: Legal History Legal Information : No legal issues (06/08/231438) Support Systems and Spirituality: Support Systems and Spirituality Support System: Parent, Other family members Parent Name/Contact Information: meron blankenship (Mother) [phone] Other Family Member Name/Contact Information: Mothers of the the patient's children Participation from Patient's Support System: Active/involved Do you have a Sikhism Preference or Affiliation?: Yes Preference/Affiliation : Mandaen Are there any Sikhism Practices that are important to maintain while admitted?: No Do you have Cultural Factors that are important to you?: No (06/08/231438) Strengths, Assets, Liabilities and Stressors: Strengths, Assets, Liabilities, and Stressors Strengths (Must Choose Two): Cultural/spiritual/confucianism and community involvement, Interpersonal relationships and supports,i.e., family, friends, peers, Exercising self-direction, Managing surrounding demands and opportunities Patient Assets: Access to services, Insured, Supportive family, Transportation, Use of Supports Hope and Strength during Difficult Times: The idea of going home Does Pt have access to Employee Assistance Program: No Patient Barriers : Financial difficulties Current Stressors: Housing, Loss of job/income, No income (06/08/23 1439) SDOH Transportation Needs: No Transportation Needs (06/08/2023) PRAPARE - Transportation Lack of Transportation (Medical): No Lack of Transportation (Non-Medical): No Financial Resource Strain: Medium Risk (06/08/2023) Overall Financial Resource Strain (CARDIA) Difficulty of Paying Living Expenses: Somewhat hard Housing Stability: Low Risk (06/08/2023) Housing Stability Vital Sign Unable to Pay for Housing in the Last Year: No Number of Places Lived in the Last Year: 1 Unstable Housing in the Last Year: No Social Connections: Moderately Isolated (06/08/2023) Social Connection and Isolation Panel [NHANES] Frequency of Communication with Friends and Family: More than three times a week Frequency of Social Gatherings with Friends and Family: More than three times a week Attends Sikhism Services: More than 4 times per year Active Member of Clubs or Organizations: No Attends Club or Organization Meetings: Never Marital Status: Never Food Insecurity: No Food Insecurity (06/08/2023) Hunger Vital Sign Worried About Running Out of Food in the Last Year: Never true Ran Out of Food in the Last Year: Never true Tobacco Use: Low Risk (06/03/2023) Patient History Smoking Tobacco Use: Never Smokeless Tobacco Use: Never Passive Exposure: Not on file Alcohol Use: Not on file PHQ Screening Over the last 2 weeks, how often have you been bothered by any of the following problems? Little Interest or Pleasure in Doing Things: Several days Feeling Down, Depressed, or Hopeless: Several days PHQ-2 Total Score (If total score is 3 or more points, staff should administer the PHQ-9): 2 Over the past 2 weeks, how often have you been bothered by any of the following problems? Little Interest or Pleasure in Doing Things: Several days Feeling Down, Depressed, or Hopeless: Several days PHQ-2 Total Score (If total score is 3 or more points, staff should administer the PHQ-9): 2 Current/Former Smokers - Passive Exposure Questions Responses Current/Former Smoker - passive exposure (e.g., household member smoking)? No Substance Abuse, Mental Health, and Trauma History: Chemical Dependency, Mental Health & Trauma History Chemical Dependency: Patient endorsed recreational use of Xanax when 19 years old. No other concerns reported Mental Health: Patient endorsed anxiety- patient open to resources (06/08/23 8427) Risk to Self and Others: Risk to Self and Others Violence risk to self in past 6 months? : No Self Harm/Suicidal Ideation Plan: No Previous Self Harm/Suicidal Attempts: No Violence risk to others in past 6 months? : No Any lifetime risk of violence to others? : No Current Plans to Harm Another: No Previous Plans to Harm Another: Patient reports no history (06/08/23 9356) Predictive Model Details 22% Factor Value Calculated 06/08/2023 12:07 25% Number of active inpatient medication orders 40 Risk of Unplanned Readmission Model 10% Number of ED visits in last six months 2 8% Active antipsychotic inpatient medication order present 8% ECG/EKG order present in last 6 months 8% Latest calcium low (8.4 mg/dL) 7% Encounter of ten days or longer in last year present 6% Imaging order present in last 6 months 5% Latest hemoglobin low (10.9 g/dL) 5% Phosphorous result present 4% Number of hospitalizations in last year 1 4% Current length of stay 4.583 days 4% Active anticoagulant inpatient medication order present 2% Age 33 2% Future appointment scheduled 1% Charlson Comorbidity Index 1 Impressions and Recommendations: Patient is a 33-year-old male with complicated type B aortic dissection who underwent placement of Cofield TBE on 05/02/23 who presents with abdominal pain and concern for progression of dissection on CT, now s/p TEVAR extension and dissection stent placementon 06/05/23 Social Work assessment completed due to 30 day readmission. Social Work met with patient at bedside. Patient amenable to assessment and presented as A&Ox4 with appropriate affect. Patient had appropriate eye contact and was good historian. Social Work informed patient of chart review and asked patient to confirm information. Social Work discussed SDOH (finances, food, transportation, housing, and social supports). Patient endorsed potential concerns with finances and employment. Patient is currently employed but reports he is likely to lose his job. Patient qualifies for 20 hours of short term disability through his employer but will need additional income to meet his family's needs. Patient lives with his girlfriendand 7 children, patient described as somewhat independent, patient had no HH services prior to thisadmission. Patient reports no current HI/SI. Patient does not have an advanced directive on file but verbally nominated meron blankenship (Mother) [phone] as surrogate decision maker in the event that he becomes unable to make medical decisions for himself. Social Work to follow up with patient regarding resources on mortgage/utility assistance, employment, and mental health. Patient stated they have no additional concerns or needs for Social Work to address. Social Work encouraged patient to inform nurse if patient has any new needs identified. Case Management to follow for discharge planning needs. Nakita Mcbride LCSW PULLER * Provider Query - Sreekanth Armstrong NP - 06/08/2023 1:09 PM CST Clinical Indicators/Treatments: Height 5'9 Weight 100.4 kg BMI 32.69 Treatments/ Monitoring: Adult Diet Clear Liquid Strict I & O Every 1 hour Cardiorespiratory monitor Continuous Specify the significance of the abnormal BMI (body mass index) and document in the medical record and on the form below. Elevated BMI _x__ Obesity ___ Other, specify below Additional Provider Response : References: From the ICD-10-CM Official Guidelines for [...] become part of the patient???s medical record. Sincerely, Ayanna Brewer, RN, BSN, CCDS Clinical Documentation Retail Associate Manager Bilingual [facility] [email or web address] PULLER * Plan of Care - Roge Tolbert RN - 06/08/2023 10:18 AM CST Problem: Lack of Knowledge: Goal: Ability to [...] Pain level will decrease Outcome: Progressing Problem: Health Behavior: Goal: Understanding of discharge [...] home environment Outcome: Progressing Problem: Activity: Goal: Mobility will [...] Progressing Goals: Clinical Goals for the Shift: Q 1 neuro checks, pain control, maintain stable hemodynmics Summary: PULLER * Plan of Care - Kindra Daniels RRT - 06/07/2023 7:19 PM CST BRONCHIAL HYGIENE Situation - Patient ordered on Q6 EzPAP via Mouthpiece. Toleration: Patient tolerated without issue.. Incentive Spirometry Result: Goal - Achieved - Bronchial Hygiene Assessment Score: 10 Pulmonary Status Negative History Surgical Status Thoracic or Upper Abdominal Chest X-ray Infiltrates, Lung Mass, Atelectasis, Pleural Effusion Respiratory Pattern Regular, Respiratory Rate < 20 Mental Status Alert, Cooperative Cough Strong, Non-Productive Breath Sounds Decreased Bilaterllly Activity Level Non-Ambulatory O2 Requirement 1 to 3 Liters Pt. Score Level Suggested Frequency 1-12 1 Turn to bedside for RN to encourage deep breath and cough, IS, or OOB - TID 13-24 2 Implement chosen bronchial hygiene mode with a suggested frequency of - TID 25-36 3 Implement chosen bronchial hygiene mode with a suggested frequency of - TID to Q4 hours Note: Score gives a general indication of pulmonary risk. Clinical judgement may yield a different recommended therapy or frequency. Plan: Per the bronchial hygiene protocol, the patient's therapy will stay the same but the frequency willdecrease to TID. RCS will continue to monitor and assess. PULLER * Plan of Care - Nakita Mcbride LCSW - 06/07/2023 10:20 AM CLOD PULLER Social Work attempted to speak with patient at bedside regarding disability/FMLA and SDOH assessment due to 30 day readmission. Patient is currently unavailable. Social Work to try again later. LIZZ Lott, YI Please see [facility] Treatment Team for contact information. PULLER * Plan of Care - Jessica Gambino RN - 06/07/2023 7:49 AM CST Goals: Problem: Lack of Knowledge: Goal: Ability to develop a pain control plan will improve 06/07/2023748 by Jessica Gambino RN Outcome: Progressing 06/07/2023748 by Jessica Gambino RN Outcome: Progressing Goal: Ability to identify pain intensity on a pain scale and rate it consistently will improve 06/07/2023748 by Jessica Gambino RN Outcome: Progressing 06/07/2023748 by Jessica Gambino RN Outcome: Progressing Goal: Ability to notify healthcare provider of pain before it becomes unmanageable or unbearable will improve 06/07/2023748 by Jessica Gambino RN Outcome: Progressing 06/07/2023748 by Jessica Gambino RN Outcome: Progressing Problem: Medication: Goal: Satisfaction with pain management regimen will improve 06/07/2023748 by Jessica Gambino RN Outcome: Progressing 06/07/2023748 by Jessica Gambino RN Outcome: Progressing Problem: Sensory: Goal: Ability to identify factors that increase the pain will improve 06/07/2023748 by Jessica Gambino RN Outcome: Progressing 06/07/2023748 by Jessica Gambino RN Outcome: Progressing Goal: Pain level will decrease 06/07/2023748 by Jessica Gambino RN Outcome: Progressing 06/07/2023748 by Jessica Gambino RN Outcome: Progressing Problem: Activity: Goal: Ability to return to normal activity level will improve 06/07/2023748 by Jessica Gambino RN Outcome: Progressing 06/07/2023748 by Jessica Gambino RN Outcome: Progressing Problem: Lack of Knowledge: Goal: Knowledge of the prescribed therapeutic regimen will improve 06/07/2023748 by Jessica Gambino RN Outcome: Progressing 06/07/2023748 by Jessica Gambino RN Outcome: Progressing Problem: Coping: Goal: Ability to cope will improve 06/07/2023748 by Jessica Gambino RN Outcome: Progressing 06/07/2023748 by Jessica Gambino, BRIA Outcome: Progressing Problem: Health Behavior: Goal: Identification of resources available to assist in meeting health care needs will improve 06/07/2023748 by Jessica Gambino RN Outcome: Progressing 06/07/2023748 by Jessica Gambino, RN Outcome: Progressing Problem: Sensory: Goal: Pain level will decrease 06/07/2023748 by Jessica Gambino, BRIA Outcome: Progressing 06/07/2023748 by Jessica Gambino, BRIA Outcome: Progressing Problem: Health Behavior: Goal: Understanding of discharge needs will improve 06/07/2023748 by Jessica Gambino RN Outcome: Progressing 06/07/2023748 by Jessica Gambino RN Outcome: Progressing Problem: Lack of Knowledge: Goal: Ability to state ways to decrease the risk of falls will improve 06/07/2023748 by Jessica Gabmino RN Outcome: Progressing 06/07/2023748 by Jessica Gambino RN Outcome: Progressing Problem: Safety: Goal: Will remain free from falls 06/07/2023748 by Jessica Gambino RN Outcome: Progressing 06/07/2023748 by Jessica Gambino, BRIA Outcome: Progressing Goal: Will remain free from injury from falls 06/07/2023748 by Jessica Gambino RN Outcome: Progressing 06/07/2023748 by Jessica Gambino RN Outcome: Progressing Goal: Will remain free from falls and injury in home environment 06/07/2023748 by Jessica Gambino RN Outcome: Progressing 06/07/2023748 by Jessica Gambino RN Outcome: Progressing Problem: Activity: Goal: Mobility will improve 06/07/2023748 by Jessica Gambino RN Outcome: Progressing 06/07/2023748 by Jessica Gambino RN Outcome: Progressing Problem: Lack of Knowledge: Goal: Understanding of ways to prevent future skin breakdown will improve 06/07/2023748 by Jessica Gambino RN Outcome: Progressing 06/07/2023748 by Jessica Gambino RN Outcome: Progressing Goal: Ability to identify appropriate dietary choices will improve 06/07/2023748 by Jessica Gambino RN Outcome: Progressing 06/07/2023748 by Jessica Gambino RN Outcome: Progressing Problem: Nutritional: Goal: Dietary intake will improve 06/07/2023748 by Jessica Gambino RN Outcome: Progressing 06/07/2023748 by Jessica Gambino RN Outcome: Progressing Goal: Ability to maintain a balanced intake and output will improve 06/07/2023748 by Jessica Gambino RN Outcome: Progressing 06/07/2023748 by Jessica Gambino RN Outcome: Progressing Problem: Skin Integrity: Goal: Risk for impaired skin integrity will decrease 06/07/2023748 by Jessica Gambino RN Outcome: Progressing 06/07/2023748 by Jessica Gambino RN Outcome: Progressing Goal: Ability to demonstrate warm and dry skin will improve 06/07/2023748 by Jessica Gambino RN Outcome: Progressing 06/07/2023748 by Jessica Gambino RN Outcome: Progressing Goal: Circulation will improve to fullest extent possible 06/07/2023748 by Jessica Gambino RN Outcome: Progressing 06/07/2023748 by Jessica Gambino RN Outcome: Progressing Clinical Goals for the Shift: Maintain SBP 140-160 and MAP >90 Summary: Weaning clevidipine gtt as tolerated per order; see MAR. Plan to remove lumbar drain latertoday per vascular. Will attempt to get pt OOBTCH as tolerated. Care ongoing. PULLER * Plan of Care - Nakita Mcbride LCSW - 06/06/2023 3:43 PM CLOD PULLER Social Work attempted to meet with patient/mother regarding consult for FMLA/disability and SDOH assessment due to 22% and 30 day readmission. Patient/mother are currently with a provider and unable to participate in the conversation. Social Work to try again tomorrow. LIZZ Lott, YI Please see [facility] Treatment Team for contact information. PULLER * Initial Assessments - Marlee Spears RN - 06/06/2023 3:08 PM CLOD PULLER CM Initial Assessment Interview Note Information Obtained From: Patient (06/06/23 1506) Admission Source: ED Impression: 33 y.o. male with Thoracoabdominal dissection s/p TEVAR w/ concern for progression of dissection. Plan Includes: Patient to d/c home once medically stable pending PT/OT evals Primary Source of Transportation: Does the patient need discharge transport arranged?: No (family) (06/06/23 1506) Health Insurance Coverage: [employer] Managed Medicaid Prescription Coverage: yes Pharmacy: [id number] - [place], [place] - [address] [facility] [address] [id number] - [place], [place] - [address] [facility] [id number] Primary Care Provider: Carl Strickland MD - new patient appt on 06/24/23 Prior to Admission: Functional Status: Independent with ADLs Primary Caregiver: Self Support System: Spouse/Significant Other, Parent Home Care Services: No Durable Medical Equipment: Walker (wheeled), Rollator Living Arrangements: Spouse/significant other, Children Type of Residence: Private residence Steps in home?: Yes, Inside home, Yes, Outside of home Number of steps inside: 10 steps Number of steps outside: 3 steps Medication management: Independent (06/06/23 1506) Potential discharge needs include: family requesting HH nursing/PT/OT - may not qualify Behavioral Health Services: Behavioral Health Services: No (06/06/23 150) Patient expects to be Discharged to: Private residence, (06/06/23 1506) Additional Information: Spoke with patient and his mother at bedside and explained role of CM. Patient verified and address on file. He lives in a private residence with his significant other andyoung children. Patient reports being independent of ADLs; however, his mother states he was requiring some assistance at home after last d/c and was still unsteady on his feet. Patient and mother would like patient to have HH set up at d/c. Discussed that he may not have a qualifying need for halfway and that his insurance likely doesn't cover PT/OT since it is a medicaid plan. However, have seen some managed Medicaid plans cover HH PT/OT. Discussed that CM can send referrals after PT/OT has seen patient and see if that would be a covered benefit. Otherwise, patient would like outpatient PT/OT orders at d/c. Patient's Identified Problem/Goal Problem: Ensure acute medical [...] Collaboration with patient, MD, direct care nurse, Executive Secretary, and other members of the health care team to assure needed interventions completed. 2. Return patient to optimal level of self-care post discharge. 3. Radius Corner Machine Operator will follow for Discharge Planning - interventions as needed 4. Anticipated level of care at discharge 5. Planned Discharge Disposition Based on a comprehensive family assessment, assistance with instrumental activities of daily livingafter discharge will be provided by patient/family Through the course of our work I determined that the patient/family possesses the skill and abilityto provide and monitor the care of the patient when he or she returns home. Patient/family has the capacity to provide/monitor/arrange for the care of the patient. Finally, we determined that patient/family has the knowledge of available resources and that combining them with their existing resources will suffice to sustain and care for the patient when he or she returns home. The treatment team is aware of this information. All are in agreement with the aftercare plan. Marlee Spears RN PULLER * Plan of Care - Jessica Gambino RN - 06/06/2023 8:40 AM CST Goals: Problem: Lack of Knowledge: Goal: Ability to [...] Pain level will decrease Outcome: Progressing Problem: Health Behavior: Goal: Understanding of discharge [...] home environment Outcome: Progressing Problem: Activity: Goal: Mobility will [...] improve to fullest extent possible Outcome: Progressing Clinical Goals for the Shift: Monitor hemodynamics and maintain SBP goal 140-160 and MAP >90 Summary: Pt maintaining SBP goal/MAP goal with Clevidipine infusion; titrating as ordered. Continuing with lumbar drain with out 10-15 mL/hr. Neuro checks q1h per order; see flowsheet. Pt remains on bedrest orders with call light within reach. Care ongoing. PULLER * Plan of Care - Dalton Rubio RN - 06/06/2023 5:31 AM CST Problem: Lack of Knowledge: Goal: Ability to [...] Pain level will decrease Outcome: Progressing Problem: Health Behavior: Goal: Understanding of discharge [...] home environment Outcome: Progressing Problem: Activity: Goal: Mobility will [...] Goals for the Shift: hemodynamic stability, monitor lumbar drain, q1h NV checks, monitor I&O, monitor labs, pulm hygiene, sleep hygiene, pain control Summary: Patient is hemodynamically stable, lumbar drain is draining 10-15mL at 23 mm Hg. NV statusis intact. Patient is - 2 L for the day. Gave 60 of K and 2 of Mg. Patient slept well throughout the night, practiced pulm hygiene, pain is under control. PULLER * Brief Op Note - Rosey Fine MD - 06/05/2023 11:04 AM CLOD PULLER Operative Progress Note Surgical Team: Surgeon(s) and Role: * Nikhil Samuel MD - Primary * Shaista Gonsalves MD - Resident - Assisting * Rosey Fine MD - Fellow Anesthesiologist: Ney Alex MD Labor Specialist: Marietta Su MD Grocery Clerk: Tim Napoles RN; Rafiq Damon RN Scrub: hCristie Mann RN DATE OF SURGERY : 06/05/2023 Preoperative Diagnosis: Pre-op Diagnosis * Dissection of abdominal aorta (CMS/HCC) (HCC) [I71.02] Postoperative Diagnosis: Post-op Diagnosis * Dissection of abdominal aorta (CMS/HCC) (HCC) [I71.02] Procedure(s): Procedure(s) (LRB): Thoracic Endovascular Repair - Aortic (N/A) Operative Findings: TEVAR 37mm x 200mm GORE c tag placed with distal extent above celiac artery and with >3cm overlap with previous TBE. 36mm cook dissection stent placed across visceral aorta. Improved true lumen diameter at completion. Completion aortogram with retrograde filling of false lumen from fenestration in visceral segment. Palpable R PT and DP, palpable L PT and dopplerable L DP at case conclusion. Estimated Blood Loss: 150cc Intraoperative Fluids: 1400cc crystalloid Specimens: No specimen collected in procedure Implants: Implant Name Type Inv. Item Serial No. Stage Technician Lot No. [id number] No. Used Action [employer] CLSR PERCLOSE PROSTYLE SUT-MEDIATD CLOSURE-REPAIR SYS 25332-09 - [id number] VASCULAR DEVICE CLSR PERCLOSE PROSTYLE SUT-MEDIATD CLOSURE-REPAIR SYS 01797-84 [employer] [id number] Left 1 Implanted [employer] CLSR PERCLOSE PROSTYLE SUT-MEDIATD CLOSURE-REPAIR SYS 81290-82 - [id number] VASCULAR DEVICE CLSR PERCLOSE PROSTYLE SUT-MEDIATD CLOSURE-REPAIR SYS 17164-12 [employer] [id number] Left 1 Implanted [employer] Graft Stent Cofield Tag L20cm Od37mm Thoracic Active Control [id number] - [id number] Stent [employer] Graft Stent Cofield Tag L20cm Od37mm Thoracic Active Control [id number] Wl Cofield [employer] N/A 1 Implanted [employer] ZENITH 36MM 20-30MM 16MM 180MM 9 DISSECTION INTRODUCER SHEATH [id number] - [id number] [employer] ZENITH 36MM 20-30MM 16MM 180MM 9 DISSECTION INTRODUCER SHEATH [id number] [employer] [id number] N/A 1 Implanted Blood/Blood Products Transfused: 1U prbc intra-op. Patient had 3U total prbc so far today (1 completed in ICU, the 2nd hung in ICU and completed in the OR, the 3rd given intra-op). UO: 1200cc (500cc emptied just after grafts deployed, another 700cc in hutton bag after completion). Complications: None Condition on Discharge from the operating room was stable. Rosey Fine MD Date: 06/05/2023 Time: 12:59 PM TEACHING ATTESTATION : I was present and directly participated in the entire procedure (including opening and closing). Cosigned by Nikhil Samuel MD at 06/08/2023 4:22 PM CLOD PULLER PULLER PULLER * Plan of Care - Shirley Horan RN - 06/05/2023 10:20 AM CST Problem: Lack of Knowledge: Goal: Ability to [...] Pain level will decrease Outcome: Progressing Problem: Health Behavior: Goal: Understanding of discharge [...] and injury in home environment Outcome: Progressing Goals: Clinical Goals for the Shift: OR this morning PULLER * Op Note - Nikhil Samuel MD - 06/05/2023 10:00 AM CST OPERATIVE REPORT SURGEON Nikhil Samuel MD [employer]ATION SUPERVISOR Rosey Fine MD ANESTHESIA: General PREOPERATIVE DIAGNOSIS (ES): 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 Unfortunately he had required a rescue lumbar drain which improved his symptoms. He was then discharged few days later. He presented 2 days ago with increasing back and abdominal pain and hypertension. His kidneys were also malperfused with an acute kidney injury. CT scan showed large new entry tear distal to the stent graft with extremely compromised true lumen. He was impulse control but continued to have pain and recurrent kidney injury. We bring him to the operating room now for intervention. OPERATIVE FINDINGS: Able to cannulate true lumen easily. Intravascular ultrasound confirmed true lumen access throughout the aorta into the previous stent graft. True lumen was severely compromised at many places with 2mm lumen. 37 x 200 Cofield C tag was placed to cm to above the celiac. 36 x 180 Cook dissection stent Significant improvement in true lumen diameter throughout the aorta. TEVAR expanded to 20 mm Angiogram shows perfusion of all visceral vessels Still large entry tear with in the visceral segment perfusing the false lumen into the descending thoracic aorta DESCRIPTION OF PROCEDURE: The appropriate extremity was identified in the preoperative holding area, marked, and reconfirmed during a pre-incision ???time-out?? procedure. Lumbar drain was placed. General endotracheal anesthesia was initiated. Was prepped and draped in usual sterile fashion. Ultrasound-guided access was obtained of the left femoral artery. Retrograde wire was placed in the aorta. We upsized to a 6 Frenchsheath over an advantage wire. Two ProGlides were placed for preclosure of the femoral artery. Wirewas then navigated into the endograft without much difficulty. Intravascular ultrasound was then used to confirm true lumen accessed. We switched out for a stiff Lunderquist wire. We then serially dilated our tract up to 22 [place]. Intravascular ultrasound marked out the celiac artery. Aortogram was then performed. A 37 x 200 Cofield C tag was introduced and deployed from within the previous stent graft to just above the celiac artery. Lumbar drain was opened at this time. We then marked the aortic bifurcation. We then introduced 36 x 180 Cook dissection stent and deployed this just above the bifurcation. Intravascular ultrasound was then performed showing better expansion of the true lumen throughout the aorta. Aortogram was then performed. The sheath was then removed over a wire and ProGlides were completely deployed. Protamine was given. SPECIMENS REMOVED: None. ESTIMATED BLOOD LOSS: minimal INTRAOPERATIVE FLUIDS: See anesthesia records. SPONGE/INSTRUMENT/NEEDLE COUNTS: Correct. CONDITION ON DISCHARGE FROM OPERATING ROOM: Stable. PRESENCE STATEMENT: I was present for the entire procedure PULLER * Plan of Care - Eugene Barcenas RN - 06/05/2023 3:49 AM CST Goals: Clinical Goals for the Shift: VSS, achieve SBP <120 and HR <60. Monitor labs and provide comfort and safety measures. Summary: Patient remains on nasal cannula at 2 lpm at night. His O2 saturation drops below 88 when he is asleep. Esmolol drip is still at maximum rate and trying to achieve HR less than 60. Lasix drip was started last night due to positive balance. Pain is controlled. Problem: Lack of Knowledge: Goal: Ability to develop a pain control plan will improve 06/05/2023348 by Eugene Barcenas RN Outcome: Progressing 06/05/2023348 by Eugene Barcenas RN Outcome: Progressing Goal: Ability to identify pain intensity on a pain scale and rate it consistently will improve 06/05/2023348 by Eugene Barcenas RN Outcome: Progressing 06/05/2023348 by Eugene Barcenas RN Outcome: Progressing Goal: Ability to notify healthcare provider of pain before it becomes unmanageable or unbearable will improve 06/05/2023348 by Eugene Barcenas RN Outcome: Progressing 06/05/2023348 by Eugene Barcenas RN Outcome: Progressing Problem: Medication: Goal: Satisfaction with pain management regimen will improve 06/05/2023348 by Eugene Barcenas RN Outcome: Progressing 06/05/2023348 by Eugene Barcenas RN Outcome: Progressing Problem: Sensory: Goal: Ability to identify factors that increase the pain will improve 06/05/2023348 by Eugene Barcenas RN Outcome: Progressing 06/05/2023348 by Eugene Barcenas, RN Outcome: Progressing Goal: Pain level will decrease 06/05/2023348 by Eugene Barcenas, RN Outcome: Progressing 06/05/2023348 by Eugene Barcenas, RN Outcome: Progressing Problem: Activity: Goal: Ability to return to normal activity level will improve 06/05/2023348 by Eugene Barcenas, RN Outcome: Progressing 06/05/2023348 by Eugene Barcenas, RN Outcome: Progressing Problem: Lack of Knowledge: Goal: Knowledge of the prescribed therapeutic regimen will improve 06/05/2023348 by uEgene Barcenas, RN Outcome: Progressing 06/05/2023348 by Eugene Barcenas, RN Outcome: Progressing Problem: Coping: Goal: Ability to cope will improve 06/05/2023348 by Eugene Barcenas, RN Outcome: Progressing 06/05/2023348 by Eugene Barcenas RN Outcome: Progressing Problem: Health Behavior: Goal: Identification of resources available to assist in meeting health care needs will improve 06/05/2023348 by Eugene Barcenas RN Outcome: Progressing 06/05/2023348 by Eugene Barcenas RN Outcome: Progressing Problem: Sensory: Goal: Pain level will decrease 06/05/2023348 by Eugene Barcenas, RN Outcome: Progressing 06/05/2023348 by Eugene Barcenas, RN Outcome: Progressing Problem: Health Behavior: Goal: Understanding of discharge needs will improve 06/05/2023348 by Eugene Barcensa, RN Outcome: Progressing 06/05/2023348 by Eugene Barcenas, RN Outcome: Progressing Problem: Lack of Knowledge: Goal: Ability to state ways to decrease the risk of falls will improve 06/05/2023348 by Eugene Barcenas, RN Outcome: Progressing 06/05/2023348 by Eugene Barcenas, RN Outcome: Progressing Problem: Safety: Goal: Will remain free from falls 06/05/2023348 by Eugene Barcenas RN Outcome: Progressing 06/05/2023348 by Eugene Barcenas RN Outcome: Progressing Goal: Will remain free from injury from falls 06/05/2023348 by Eugene Barcenas, RN Outcome: Progressing 06/05/2023348 by Eugene Barcenas, RN Outcome: Progressing Goal: Will remain free from falls and injury in home environment 06/05/2023348 by Eugene Barcenas, BRIA Outcome: Progressing 06/05/2023348 by Eugene Barcenas RN Outcome: Progressing PULLER * Plan of Care - Pooja Cameron RN - 06/04/2023 4:56 PM CLOD PULLER Problem: Lack of Knowledge: Goal: Ability to [...] Pain level will decrease Outcome: Progressing Problem: Health Behavior: Goal: Understanding of discharge [...] and injury in home environment Outcome: Progressing Goals: Clinical Goals for the Shift: VSS, systolic <120, HR,60 pain control Summary: VSS, systolic <120, hr goal of 60 attempted to meet through a variety of medications (increases in coreg, starting labetalol, increases in labetalol doses and esmolol drip), 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 - Neurology and NSGY consulted and placed lumbar drain. - Total spine MRI with dorsal hematoma and assoc displacement of cauda equina nerve roots, no evidence of ischemia - Lumbar drain removed 05/10 - LE weakness now recovering. PT/OT have cleared for home without further therapy. - Goal SBP less than 180. Started on beta louie (Coreg) with BP at goal. - Dr. Abarca consulted pre-operatively and believed this was due to uncontrolled HTN, did not have signs of genetic aortopathy. Recommended beta louie therapy. - Repeat CTA 05/16 reviewed by surgical team and stable, plan to repeat scan in 4 weeks as outpatient. Urinary retention Patient with urinary retention requiring straight cath X1 05/15, now voiding without any issues. - Continue Flomax. - Patient requests urology follow up, referral placed. HTN (hypertension) Hx of uncontrolled HTN, non-compliant to medications. - Need to avoid hypotension in post TEVAR period. - SBP goal less than 180. - Currently on Coreg 12.5mg BID. Pneumonia Tracheal aspirate 05/05 with Haemophilus Inf - susana(05/04 - 05/10), linezolid (05/04-05/06) - Extubated and then weaned off oxygen without issues. Stable on room air prior to discharge. Epistaxis Significant nose bleed in the OR requiring intra-op ENT c/s. DL performed, no other sources of bleeding visualized. ACT post protamine 149. - ocean spray tid - no other s/s bleeding By: Tressa Sorensen MD Time: 06/03 1826 Comment: ED attending-Franchesca. 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 Since being at home mom says he has been having off and on bouts of severe abdominal and chest pain in his blood pressure has not been well controlled. Symptoms severe enough today that mom and girlfriend decided to bring him to the ED. They have not notified thoracic surgery that patient has been having problems. Appointment with them is not until 2 weeks from now. Nofever chills no productive cough no nausea vomiting diarrhea reported. Mom says that he just gets these waves of abdominal and chest pain but that he does not want to come back to the hospital so hasnot been saying anything other than to the girlfriend. He reports some continued numbness feet. Given sxs worried about recurrent dissection plan to get repeat CTA chest and abd. By: Tressa Sorensen MD Time: 06/03 1916 Comment: BP is climbing despite being settled down. Will start Labetolol while awaiting CTA By: Tressa Sorensen MD Time: 06/03 2046 Comment: CT abdomen pelvis completed the type B dissection is noted with post interventional changes not felt to be worse or with increased dissection. False lumen if anything is improved. Also incidental finding of bilateral kidney stones this may explain some of the patient's pain they are stableand unchanged as well from prior study. Will ask vasc surgery to get involved. Have started labetolol for the HTN. By: Tressa Sorensen MD Time: 06/03 2056 Comment: Vascular surgery called back they said they would be down I informed them of patient's blood pressure and also the results of tonight CT abdomen By: Tressa Sorensen MD Time: 06/03 2126 Comment: Vasc surgery at bedside pt's BP is 200 starting esmolol drip aiming for MAP of 70-90 By: Tressa Sorensen MD Time: 06/03 2212 Comment: BP slowly coming down will titrate up esmolol and also adjust pain meds. [facility] plan to admit to CTICU By: Tressa Sorensen MD Time: 06/03 2306 Comment: Has a ready bed for CTICU By: Tressa Sorensen MD No diagnosis found. Nigel Santos MD Resident 06/05/23 1831 PULLER * Significant Event - Brynn Lazo MD - 06/03/2023 10:43 PM CST VASCULAR SURGERY BRIEF RECOMMENDATION NOTE - full consult note to follow Patient is a 33 y.o. male with aortic dissection from zone 2 through 10 previously managed in the setting of severe pain and progression on serial imaging with TBE on 05/02/23. Course complicated by refractory hypertension and transient spinal cord ischemia managed with lumbar drain with recovery of motor and sensation in the BLE. Now returns with increased abdominal and back pain, SBP 200, and concern for progression on CT. Recommendations for Mr. Chau are as follows: - Admit to CTICU - serial abdominal exams with close monitoring for any signs of mesenteric ischemia - q6 labs including lactate, CBC, BMP - impulse control for SBP <120, HR <60 Please call [phone] with any questions or concerns. Bari Phelps MD MPHS PULLER * ED Procedure Note - Tressa Sorensen MD - 06/03/2023 10:14 PM CSTAssociated Order(s): Critical Care Procedure Critical Care Performed by: Tressa Sorensen MD Authorized by: Tressa Sorensen MD Critical care provider statement: As reflected in the history, physical exam, orders, notes, and/or MDM, I was personally present while the patient was critically ill and provided critical care services for 30 minutes, excluding timeinvolved in separately billable procedures. Critical care was necessary to treat or prevent imminent or life- threatening deterioration of the following condition(s): hypertensive crisis Hx aortic dissection severe hematologic condition Critical care was time spent by me providing the following: continuous telemetry, continuous pulse oximetry, interpretation of bedside monitors, imaging, and arterial/venous lab draws, serial bedside patient exams and resuscitation with fluids frequent neurologic exams initiation and active titration of vasoactive [...] spent time documenting in the medical record. I admitted this patient to an Intensive Care unit (ICU) and discussed management with the admitting team. I admitted this patient to a continuous cardiac monitored bed. Tressa Sorensen MD 06/03/239 P[facility]ER * ED Procedure Note - Michael Cortes MD - 06/03/2023 6:18 PM CSTAssociated Order(s): ECG 12 lead Procedure ECG 12 lead Date/Time: 06/03/2023 6:18 PM Performed by: Michael Cortes MD Authorized by: Deandre Niño MD Rate: ECG rate: Rate 107, narrow complex, regular, sinus, no stemi. nonspecific st changes in I, II, III,aVL, V4-V6 that were present on prior May 13 ECG Michael Cortes MD 06/03/23 1819 PULLER documented in this encounter Plan of Treatment Pending Results Name Type Priority Associated Diagnoses Date /Time Basic metabolic panel Lab Routine 10/2023 6:09 AM [facility]OD [facility] Magnesium Lab Timed 06/04/2023 11: 59 PM [facility]OD [facility] Phosphorus Lab Timed 06/04/2023 11: 59 PM CLOD [facility] Basic metabolic panel Lab Routine 12/2023 12:06 AM CLOD [facility] Lactate Lab Routine 06/08/2023 12: 03 AM [facility]OD [facility] Basic metabolic panel Lab Routine 04/2024 5:24 AM CLOD [facility]ER Scheduled Orders Name Type Priority Associated Diagnoses Orde r Schedule Basic metabolic panel Lab Routine Onc e for 1 Occurrences starting 06/04/2023 until 06/04/2023 Magnesium Lab Timed Once for 1 Occ urrences starting 06/04/2023 until 06/04/2023 Phosphorus Lab Timed Once for 1 Occ urrences starting 06/04/2023 until 06/04/2023 Basic metabolic panel Lab Routine Onc e for 1 Occurrences starting 06/06/2023 until 06/06/2023 Lactate Lab Routine Once for 1 Occ urrences starting 06/08/2023 until 06/08/2023 Basic metabolic panel Lab Routine Onc e for 1 Occurrences starting 06/10/2023 until 06/10/2023 documented as of this encounter Procedures Procedure Name Priority Date/Time Associated Diagnosis Comments EGFR Routine 06/11/2023 3:21 AM [facility] DIFFERENTIAL AUTO Routine 06/11/2023 3:21 AM [facility]OD [facility] CBC WITH AUTO DIFFERENTIAL Routine 06/11/2023 3:21 AM [facility] TYPE AND SCREEN Timed 06/11/2023 3:21 AM [facility] PHOSPHORUS Routine 06/11/2023 3:21 AM [facility] MAGNESIUM Routine 06/11/2023 3:21 AM [facility] BASIC METABOLIC PANEL Routine 06/11/2023 3:21 AM [facility] XR CHEST 1 VIEW Timed 06/10/2023 7:25 PM [facility] CTA CHEST ABDOMEN PELVIS IP Routine 06/10/2023 8:33 AM [facility] PEP THERAPY Routine 06/10/2023 8:00 AM [facility] EGFR Routine 06/10/2023 5:24 AM [facility] DIFFERENTIAL AUTO Routine 06/10/2023 5:24 AM [facility] CBC WITH AUTO DIFFERENTIAL Routine 06/10/2023 5:24 AM [facility] PHOSPHORUS Routine 06/10/2023 5:24 AM [facility] MAGNESIUM Routine 06/10/2023 5:24 AM [facility] BASIC METABOLIC PANEL Routine 06/10/2023 5:24 AM [facility] XR CHEST 1 VIEW Timed 06/09/2023 6:36 PM [facility] PEP THERAPY Routine 06/09/2023 6:00 PM [facility] PEP THERAPY Routine 06/09/2023 1:00 PM [facility] PEP THERAPY Routine 06/09/2023 8:00 AM [facility] EGFR Timed 06/08/2023 8:53 PM [facility] CBC WITHOUT DIFFERENTIAL Timed 06/08/2023 8:53 PM [facility] PHOSPHORUS Routine 06/08/2023 8:53 PM [facility] MAGNESIUM Routine 06/08/2023 8:53 PM [facility] BASIC METABOLIC PANEL Timed 06/08/2023 8:53 PM [facility]OD [facility] XR CHEST 1 VIEW IP Routine 06/08/2023 7:33 PM [facility] PEP THERAPY Routine 06/08/2023 6:00 PM [facility] PEP THERAPY Routine 06/08/2023 4:43 PM [facility] PEP THERAPY Routine 06/08/2023 4:43 PM [facility] PEP THERAPY Routine 06/08/2023 4:43 PM [facility] CRITICAL CARE Routine 06/08/2023 7:32 AM [facility] Dissection of abdominal aorta (CMS/HCC) (HCC) LACTATE Routine 06/08/2023 12:03 AM [facility] EGFR Routine 06/08/2023 12:03 AM [facility] CBC WITHOUT DIFFERENTIAL Routine 06/08/2023 12:03 AM [facility] TYPE AND SCREEN Timed 06/08/2023 12:03 AM [facility] PHOSPHORUS Routine 06/08/2023 12:03 AM [facility] MAGNESIUM Routine 06/08/2023 12:03 AM [facility] BASIC METABOLIC PANEL Routine 06/08/2023 12:03 AM [facility] XR CHEST 1 VIEW IP Routine 06/07/2023 9:36 PM [facility] CRITICAL CARE Routine 06/07/2023 7:53 PM [facility]OD [facility] Dissection of thoracoabdominal aorta (CMS/HCC) (HCC) US LOWER EXTREMITY LEFT LIMITED Timed 06/07/2023 2:29 PM [facility] CRITICAL CARE Routine 06/07/2023 6:19 AM [facility]OD [facility] Dissection of abdominal aorta (CMS/HCC) (HCC) EGFR Routine 06/07/2023 12:11 AM [facility] CBC WITHOUT DIFFERENTIAL Routine 06/07/2023 12:11 AM [facility] PHOSPHORUS Routine 06/07/2023 12:11 AM [facility] MAGNESIUM Routine 06/07/2023 12:11 AM [facility] BASIC METABOLIC PANEL Routine 06/07/2023 12:11 AM [facility] XR CHEST 1 VIEW IP Routine 06/06/2023 7:40 PM [facility] CRITICAL CARE Routine 06/06/2023 6:30 PM CLOD [facility] Dissection of abdominal aorta (CMS/HCC) (HCC) EGFR Timed 06/06/2023 8:14 AM [facility] CBC WITHOUT DIFFERENTIAL Timed 06/06/2023 8:14 AM [facility] BASIC METABOLIC PANEL Timed 06/06/2023 8:14 AM [facility] CRITICAL CARE Routine 06/06/2023 7:00 AM CLOD [facility] Dissection of abdominal aorta (CMS/HCC) (HCC) EGFR Routine 06/06/2023 12:06 AM CLOD [facility] CBC WITHOUT DIFFERENTIAL Timed 06/06/2023 12:06 AM [facility] PHOSPHORUS Routine 06/06/2023 12:06 AM [facility] MAGNESIUM Routine 06/06/2023 12:06 AM [facility] BASIC METABOLIC PANEL Routine 06/06/2023 12:06 AM [facility] XR CHEST 1 VIEW Timed 06/05/2023 7:37 PM [facility] CRITICAL CARE Routine 06/05/2023 6:37 PM [facility] Dissection of abdominal aorta (CMS/HCC) (HCC) APTT STAT 06/05/2023 2:53 PM [facility] PROTIME-INR STAT 06/05/2023 2:53 PM [facility] EGFR STAT 06/05/2023 1:34 PM [facility] DIFFERENTIAL AUTO STAT 06/05/2023 1:34 PM [facility] CBC WITH AUTO DIFFERENTIAL STAT 06/05/2023 1:34 PM [facility] PHOSPHORUS STAT 06/05/2023 1:34 PM [facility] MAGNESIUM STAT 06/05/2023 1:34 PM [facility] BASIC METABOLIC PANEL STAT 06/05/2023 1:34 PM [facility] CV HYBRID ROOM (DEFAULT ORDERABLE) Routine 06/05/2023 1:15 PM [facility] Dissection of abdominal aorta (CMS/HCC) (HCC) POCT ACTIVATED CLOTTING TIME, LOW RANGE Routine 06/05/2023 12:42 PM [facility] POCT ACTIVATED CLOTTING TIME, LOW RANGE Routine 06/05/2023 12:29 PM [facility] POCT ACTIVATED CLOTTING TIME, LOW RANGE Routine 06/05/2023 11:49 AM [facility] TRANSFUSE RED BLOOD CELLS Routine 06/05/2023 11:36 AM [facility] POCT ACTIVATED CLOTTING TIME, LOW RANGE Routine 06/05/2023 11:27 AM [facility] POC BLOOD GAS AND CHEMISTRIES, ARTERIAL Routine 06/05/2023 11:19 AM [facility] TRANSFUSE RED BLOOD CELLS Timed 06/05/2023 9:16 AM [facility] TRANSFUSE RED BLOOD CELLS Timed 06/05/2023 8:21 AM [facility] PREPARE RBC Timed 06/05/2023 7:54 AM [facility] CRITICAL CARE Routine 06/05/2023 6:40 AM [facility]OD [facility] Dissection of abdominal aorta (CMS/HCC) (HCC) EGFR Timed 06/05/2023 5:27 AM [facility] LACTATE, WHOLE BLOOD Timed 06/05/2023 5:27 AM [facility] CBC WITHOUT DIFFERENTIAL Timed 06/05/2023 5:27 AM [facility] TRIGLYCERIDES Timed 06/05/2023 5:27 AM [facility] PHOSPHORUS Routine 06/05/2023 5:27 AM [facility] MAGNESIUM Routine 06/05/2023 5:27 AM [facility] BASIC METABOLIC PANEL Timed 06/05/2023 5:27 AM [facility] EGFR Timed 06/04/2023 11:59 PM [facility] LACTATE, WHOLE BLOOD Timed 06/04/2023 11:59 PM [facility] CBC WITHOUT DIFFERENTIAL Timed 06/04/2023 11:59 PM [facility] PHOSPHORUS Timed 06/04/2023 11:59 PM [facility] P[facility] MAGNESIUM Timed 06/04/2023 11:59 PM [facility] BASIC METABOLIC PANEL Timed 06/04/2023 11:59 PM [facility] XR CHEST 1 VIEW IP Routine 06/04/2023 8:53 PM [facility] CRITICAL CARE Routine 06/04/2023 6:46 PM [facility] Dissection of abdominal aorta (CMS/HCC) (HCC) EGFR Timed 06/04/2023 5:33 PM [facility] LACTATE, WHOLE BLOOD Timed 06/04/2023 5:33 PM [facility] CBC WITHOUT DIFFERENTIAL Timed 06/04/2023 5:33 PM [facility] BASIC METABOLIC PANEL Timed 06/04/2023 5:33 PM [facility] US DOPPLER RENAL ARTERY LIMITED Critical/Life- Threatening 06/04/2023 12:27 PM [facility] EGFR Timed 06/04/2023 11:37 AM [facility] LACTATE, WHOLE BLOOD Timed 06/04/2023 11:37 AM [facility] PROTIME-INR Timed 06/04/2023 11:37 AM [facility] CBC WITHOUT DIFFERENTIAL Timed 06/04/2023 11:37 AM [facility] BASIC METABOLIC PANEL Timed 06/04/2023 11:37 AM [facility] EGFR Routine 06/04/2023 6:09 AM [facility] LACTATE, WHOLE BLOOD Timed 06/04/2023 6:09 AM [facility] CBC WITHOUT DIFFERENTIAL Timed 06/04/2023 6:09 AM [facility] PHOSPHORUS Routine 06/04/2023 6:09 AM [facility] MAGNESIUM Routine 06/04/2023 6:09 AM [facility] BASIC METABOLIC PANEL Routine 06/04/2023 6:09 AM [facility] BLOOD GAS, ARTERIAL STAT 06/04/2023 2:33 AM [facility] APTT STAT 06/04/2023 1:54 AM [facility] PROTIME-INR STAT 06/04/2023 1:54 AM [facility] TYPE AND SCREEN STAT 06/04/2023 1:54 AM [facility] VA ARTL CATHJ/CANNULJ MNTR/TRANSFUSION SPX PRQ Routine 06/04/2023 1:26 AM [facility] Dissection of abdominal aorta (CMS/HCC) (HCC) LACTATE, WHOLE BLOOD Timed 06/04/2023 1:00 AM [facility] EGFR STAT 06/04/2023 12:42 AM [facility] CALCIUM, IONIZED STAT 06/04/2023 12:42 AM [facility] CBC WITHOUT DIFFERENTIAL STAT 06/04/2023 12:42 AM [facility] PHOSPHORUS STAT 06/04/2023 12:42 AM [facility] MAGNESIUM STAT 06/04/2023 12:42 AM [facility] BASIC METABOLIC PANEL STAT 06/04/2023 12:42 AM [facility] VA CRITICAL CARE ILL/INJURED PATIENT INIT 30-74 MIN Routine 06/03/2023 10:14 PM [facility] TROPONIN I HIGH-SENSITIVITY 4-HOUR Timed 06/03/2023 10:07 PM [facility] LACTATE STAT 06/03/2023 10:07 PM [facility] URINALYSIS AND REFLEX TO MICROSCOPIC STAT 06/03/2023 10:07 PM [facility] URINALYSIS, MICROSCOPIC ONLY STAT 06/03/2023 10:07 PM [facility] TROPONIN I HIGH-SENSITIVITY 2-HOUR Timed 06/03/2023 8:21 PM [facility] CTA CHEST ABDOMEN PELVIS ED 06/03/2023 7:19 PM [facility] POCUS RETROPERITONEAL (AAA OR RENAL) 06/03/2023 6:53 PM [facility] POCT CREATININE - DEVICE Routine 06/03/2023 6:36 PM [facility] TROPONIN I HIGH-SENSITIVITY SERIES (BASELINE, 2HR, 4HR, 6HR) STAT 06/03/2023 6:30 PM [facility] EGFR STAT 06/03/2023 6:30 PM [facility] DIFFERENTIAL AUTO STAT 06/03/2023 6:30 PM [facility] CBC WITH AUTO DIFFERENTIAL STAT 06/03/2023 6:30 PM [facility] LIPASE STAT 06/03/2023 6:30 PM [facility] COMPREHENSIVE METABOLIC PANEL STAT 06/03/2023 6:30 PM [facility] ECG 12-LEAD STAT 06/03/2023 6:18 PM [facility]OD [facility] documented in this encounter Results * eGFR (06/11/2023 3:21 AM CLOD [facility]ER) [facility] eGFR >90 >=60 mL/min/1. 73 m2 [facility] Comment: Interpretive Data Reference Interval [...] interpretive data was last reviewed 2021. Blood 06/11/2023 3:21 AM [facility]OD [facility] 06/11/2023 3:32 AM CLOD [facility]ER us Nikhil Samuel MD LAB BLOOD ORDERABLES Sally zhang Result [facility] Department [place] [address] * (ABNORMAL) Differential, auto (06/11/2023 3:21 AM CLOD [facility]ER) Neutrophil abs 5.4 1.5 - 6.5 K/cumm [facility] Imm gran abs 0.1 0.0 - 0.1 K/cumm [facility] Lymphocyte abs 2.1 0.8 - 3.3 K/cumm [facility] Monocyte abs 1.1(H) 0.2 - 0.8 K/cumm [facility] Eosinophil abs 0.1 0.0 - 0.5 K/cumm [facility] Basophil abs 0.1 0.0 - 0.1 K/cumm [facility] Neutrophil pct 61.3 % [facility] Comment: Interpretive Data Percent cell count reference ranges are not reported, since discordance with absolute values may lead to misinterpretation of CBC data. Current Interpretive Data was last revised on 2017. Imm gran pct 0.8 % [facility] Comment: Interpretive Data Percent cell count reference ranges are not reported, since discordance with absolute values may lead to misinterpretation of CBC data. Current Interpretive Data was last revised on 2017. Lymphocyte pct 23.5 % [facility] Comment: Interpretive Data Percent cell count reference ranges are not reported, since discordance with absolute values may lead to misinterpretation of CBC data. Current Interpretive Data was last revised on 2017. Monocyte pct 13.0 % [facility] Comment: Interpretive Data Percent cell count reference ranges are not reported, since discordance with absolute values may lead to misinterpretation of CBC data. Current Interpretive Data was last revised on 2017. Eosinophil pct 0.8 % [facility] Comment: Interpretive Data Percent cell count reference ranges are not reported, since discordance with absolute values may lead to misinterpretation of CBC data. Current Interpretive Data was last revised on 2017. Basophil pct 0.6 % [facility] Comment: Interpretive Data Percent cell count reference ranges are not reported, since discordance with absolute values may lead to misinterpretation of CBC data. Current Interpretive Data was last revised on 2017. Blood 06/11/2023 3:21 AM CLOD PULLER 06/11/2023 3:32 AM CLOD PULLER us Nikhil Samuel MD LAB BLOOD ORDERABLES Sally l Result [facility] Department of Laboratories [place], [place] [id number] * Basic metabolic panel (06/11/2023 3:21 AM CLOD PULLER) Sodium 143 135 - 145 mmol/L [facility] Potassium, pl 3.8 3.3 - 4.9 mmol/L [facility] Chloride 107 97 - 110 mmol/L [facility] CO2 23 22 - 32 mmol/L [facility] Anion gap 13 2 - 15 mmol/L [facility] BUN 12 6 - 25 mg/dL [facility] Creatinine 0.80 0.80 - 1.30 mg/dL [facility] Glucose 107 70 - 199 mg/dL [facility] Comment: Interpretive Data Fasting glucose >/= [...] 2022. Calcium 9.1 8.5 - 10.3 mg/dL [facility] Blood 06/11/2023 3:21 AM CLOD PULLER 06/11/2023 3:32 AM CLOD PULLER us Nikhil Samuel MD LAB BLOOD ORDERABLES Sally zhang Result [facility] Department [place] [address] * (ABNORMAL) CBC with auto differential (06/11/2023 3:21 AM CLOD PULLER) WBC 8.7 3.8 - 9.9 K/cumm [facility] Hgb 10.2(L) 13.0 - 17.5 g/dL [facility] Hct 32.6(L) 38.9 - 50.3 % [facility] Plt 334 150 - 400 K/cumm [facility] MPV 9.1 9.1 - 12.3 fL [facility] RBC 3.63(L) 4.30 - 5.80 M/cumm [facility] MCV 89.8 81.3 - 96.4 fL [facility] MCH 28.1 27.1 - 33.3 pg [facility] MCHC 31.3(L) 32.3 - 35.7 g/dL [facility] RDW CV 13.7 11.1 - 14.9 % [facility] RDW SD 44.8 35.7 - 48.1 fL [facility] NRBC abs 0.00 0.00 - 0.01 K/cumm [facility] Blood 06/11/2023 3:21 AM CLOD PULLER 06/11/2023 3:32 AM CLOD PULLER Nikhil Samuel MD LAB BLOOD ORDERABLES Sally l Result [facility] [place] [address] * (ABNORMAL) Phosphorus (06/11/2023 3:21 AM CLOD PULLER) Phosphorus, pl 4.7(H) 2.3 - 4.5 mg/dL [facility] Blood 06/11/2023 3:21 AM CLOD PULLER 06/11/2023 3:32 AM CLOD PULLER Result [facility] Sreekanth Armstrong NP LAB BLOOD ORDERABLES Sally l Result Performing Organization Address [facility] Co de Phone Number [facility] [place] [address] * Magnesium (06/11/2023 3:21 AM CLOD PULLER) Magnesium 2.3 1.4 - 2.5 mg/dL [facility] Blood 06/11/2023 3:21 AM CLOD PULLER 06/11/2023 3:32 AM CLOD PULLER Result [facility] Sreekanth Armstrong NP LAB BLOOD ORDERABLES Sally l Result Performing Organization Address City/[facility] Co de Phone Number [facility] [place] [address] * Type and screen (06/11/2023 3:21 AM CLOD PULLER) ABO Rh A Positive Ellen, indirect Negative [facility] Blood 06/11/2023 3:21 AM CLOD PULLER 06/11/2023 3:47 AM CLOD PULLER Narrative JAIRON COLON - 06/11/2023 4:36 AM CLOD PULLER Has the patient had Daratumumab or Isatuximab in the past 6 months?->Unknown Sreekanth Armstrong NP LAB BLOOD BANK TEST ORDER CAROLINE Final Result [facility] Department [place] [address] * XR Chest 1 View (06/10/2023 7:25 PM CLOD PULLER) Anatomical Region Laterality Modality Body, Chest N/A Computed Radiogr aphy 06/10/2023 7:29 PM CLOD PULLER Impressions 06/10/2023 7:29 PM CLOD PULLER The current study is compared with the prior radiograph dated ??06/09/2023. 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 ??The heart is mildly enlarged. ??There is no pneumothorax.. There is no mass or lymphadenopathy no pleural effusions Electronically signed by: Floridalma Oliva M.D. Narrative 06/10/2023 7:29 PM CLOD PULLER EXAMINATION: 1 view chest radiograph Procedure Note Floridalma Oliva MD - 06/10/2023 EXAMINATION: 1 view chest radiograph IMPRESSION: The current study is compared with the prior radiograph dated 06/09/2023. Patient is status post endoluminal aortic stent graft with a left subclavian stent as well , appearance is unchanged. The heart is mildly enlarged. There is no pneumothorax.. There is no mass or lymphadenopathy no pleural effusions Electronically signed by: Floridalma Oliva M.D. Sreekanth Armstrong [employer] IMG XR PROCEDURES Final R esult * CTA Chest Abdomen Pelvis (06/10/2023 8:33 AM CLOD PULLER) Anatomical Region Laterality Modality Body N/A Computed Tomogra phy 06/10/2023 11:4 0 AM CLOD PULLER Impressions 06/10/2023 11:53 AM CLOD PULLER Interval expected postoperative changes of inferior extension of the thoracic aorta endovascular stent graft and stent placement within the true lumen of the visceral abdominal aorta for management of type B aortic dissection. ??The true lumen is expanded in caliber compared to prior. ??There is retrograde opacification of the false lumen at the level of the distal descending thoracic aorta above the hiatus and through the level of the celiac artery due to fenestration in the visceral segment as described on completion aortogram. Dictated by: Corrie Monteiro M.D. The radiology attending physician has personally reviewed this study, and had reviewed and/or edited this written report and agrees with it. Electronically signed by: Bassam Dykes M.D. Narrative 06/10/2023 11:53 AM CLOD PULLER EXAMINATION: ??CT ANGIOGRAPHY OF THE CHEST, ABDOMEN AND PELVIS WITH AND WITHOUT CONTRAST HISTORY: Type B aortic dissection status post endovascular repair 05/02/2023 now status post extension of the TEVAR and placement of new uncovered stent graft to the abdominal aorta. ??Completion angiogram following surgery showed retrograde filling of the false lumen via fenestration in the visceral segment. TECHNIQUE: CT angiography of the chest, abdomen and pelvis was performed prior to and following the uneventful intravenous administration of 120 ml Optiray-350 using the post-endoluminal stent graft protocol. Vascular 3D images were generated on a dedicated workstation and also reviewed. COMPARISON: 06/03/2023 FINDINGS: VASCULAR FINDINGS: Redemonstrated postoperative changes of thoracic aortic endovascular stenting for management of type B aortic dissection. ??Interval inferior extension of the thoracic aortic stent graft, there is some overlap with the prior existing stent, as well as interval placement of an abdominal aortic stent which extends down to the level of the origin of the inferior mesenteric artery. ??The new stent has been placed within the true lumen which is expanded in caliber compared to the prior study 06/03/2023. ?? The proximal attachment site of the stents remains just beyond the origin of the left common carotid artery, and the distal attachment site is now in the infrarenal abdominal aorta just above the origin of the inferior mesenteric artery. ??There is an unchanged left subclavian artery stent with narrowing of the stent near the origin of the left subclavian artery. There is retrograde opacification of the false lumen at the level of the descending thoracic aorta just above the hiatus from a fenestration in the visceral segment as described on the completion aortogram. ??The celiac artery arises from the false lumen. ??The SMA, and both renal arteries arise from the true lumen which now contains an apparent stent. 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 ??The maximum diameter of the graft is 33 mm AP x 34 mm [id number], this is at the distal aspect of the original TEVAR in the mid descending thoracic aorta. ?? Abdominal: Residual dissection flap present in the infrarenal abdominal aorta extending into the left common iliac artery. ??There is retrograde opacification of the false lumen at the level of the infrarenal abdominal aorta just above the bifurcation. ??Inferior mesenteric artery arises from the true lumen. No visceral stents are present. NON-VASCULAR FINDINGS: Chest: Slight interval increase in size of small left pleural effusion. ??Trace right pleural fluid. ??No thoracic lymphadenopathy. Heart size is normal. ??No pericardial effusion. ??Subsegmental atelectasis in the lower lobes. ??No pneumothorax. ??No suspicious pulmonary nodule. Abdomen/Pelvis: No focal liver lesion. ??Gallbladder is distended without wall thickening or pericholecystic stranding. ??No biliary ductal dilation. ??Spleen contains a calcified granuloma and is otherwise normal. ??Adrenal glands are normal. ??Bilateral nonobstructing renal stones. ??Hypoattenuating foci too small to characterize and small renal cysts bilaterally. ??No hydronephrosis. Symmetric renal enhancement. ??No free fluid. ??No free air. ??There is stranding in the left groin in keeping with recent vascular access. No abdominal or pelvic lymphadenopathy. ??Colon is normal course and caliber. ??Appendix is normal. ??No bowel obstruction. ??No suspicious osseous lesion. Procedure Note Bassam Dykes MD PhD - 06/10/2023 EXAMINATION: CT ANGIOGRAPHY OF THE CHEST, ABDOMEN AND PELVIS WITH AND WITHOUT CONTRAST HISTORY: Type B aortic dissection status post endovascular repair 05/02/2023 now status post extension of the TEVAR and placement of new uncovered stent graft to the abdominal aorta. Completion angiogram following surgery showed retrograde filling of the false lumen via fenestration in the visceral segment. TECHNIQUE: CT angiography of the chest, abdomen and pelvis was performed prior to and following the uneventful intravenous administration of 120 ml Optiray-350 using the post-endoluminal stent graft protocol. Vascular 3D images were generated on a dedicated workstation and also reviewed. COMPARISON: 06/03/2023 FINDINGS: VASCULAR FINDINGS: Redemonstrated postoperative changes of thoracic aortic endovascular stenting for management of type B aortic dissection. Interval inferior extension of the thoracic aortic stent graft, there is some overlap with the prior existing stent, as well as interval placement of an abdominal aortic stent which extends down to the level of the origin of the inferior mesenteric artery. The new stent has been placed within the true lumen which is expanded in caliber compared to the prior study 06/03/2023. The proximal attachment site of the stents remains just beyond the origin of the left common carotid artery, and the distal attachment site is now in the infrarenal abdominal aorta just above the origin of the inferior mesenteric artery. There is an unchanged left subclavian artery stent with narrowing of the stent near the origin of the left subclavian artery. There is retrograde opacification of the false lumen at the level of the descending thoracic aorta just above the hiatus from a fenestration in the visceral segment as described on the completion aortogram. The celiac artery arises from the false lumen. The SMA, and both renal arteries arise from the true lumen which now contains an apparent stent. 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 The maximum diameter of the graft is 33 mm AP x 34 mm [id number], this is at the distal aspect of the original TEVAR in the mid descending thoracic aorta. Abdominal: Residual dissection flap present in the infrarenal abdominal aorta extending into the left common iliac artery. There is retrograde opacification of the false lumen at the level of the infrarenal abdominal aorta just above the bifurcation. Inferior mesenteric artery arises from the true lumen. No visceral stents are present. NON-VASCULAR FINDINGS: Chest: Slight interval increase in size of small left pleural effusion. Trace right pleural fluid. No thoracic lymphadenopathy. Heart size is normal. No pericardial effusion. Subsegmental atelectasis in the lower lobes. No pneumothorax. No suspicious pulmonary nodule. Abdomen/Pelvis: No focal liver lesion. Gallbladder is distended without wall thickening or pericholecystic stranding. No biliary ductal dilation. Spleen contains a calcified granuloma and is otherwise normal. Adrenal glands are normal. Bilateral nonobstructing renal stones. Hypoattenuating foci too small to characterize and small renal cysts bilaterally. No hydronephrosis. Symmetric renal enhancement. No free fluid. No free air. There is stranding in the left groin in keeping with recent vascular access. No abdominal or pelvic lymphadenopathy. Colon is normal course and caliber. Appendix is normal. No bowel obstruction. No suspicious osseous lesion. IMPRESSION: Interval expected postoperative changes of inferior extension of the thoracic aorta endovascular stent graft and stent placement within the true lumen of the visceral abdominal aorta for management of type B aortic dissection. The true lumen is expanded in caliber compared to prior. There is retrograde opacification of the false lumen at the level of the distal descending thoracic aorta above the hiatus and through the level of the celiac artery due to fenestration in the visceral segment as described on completion aortogram. Dictated by: Corrie Monteiro M.D. The radiology attending physician has personally reviewed this study, and had reviewed and/or edited this written report and agrees with it. Electronically signed by: Bassam Dykes M.D. Bettie Wheeler NP IMG CT PROCEDURES Fin al Result * (ABNORMAL) Basic metabolic panel (06/10/2023 5:24 AM CLOD PULLER) Sodium 141 135 - 145 mmol/L [facility] Potassium, pl 3.5 3.3 - 4.9 mmol/L [facility] Chloride 104 97 - 110 mmol/L [facility] CO2 26 22 - 32 mmol/L [facility] Anion gap 11 2 - 15 mmol/L [facility] BUN 11 6 - 25 mg/dL [facility] Creatinine 0.77(L) 0.80 - 1.30 mg/dL [facility] Glucose 108 70 - 199 mg/dL [facility] Comment: Interpretive Data Fasting glucose >/= [...] 2022. Calcium 9.2 8.5 - 10.3 mg/dL [facility] Blood 06/10/2023 5:24 AM CLOD PULLER 06/10/2023 5:45 AM CLOD PULLER us Nikhil Samuel MD LAB BLOOD ORDERABLES Sally zhang Result [facility] Department [place] [address] * eGFR (06/10/2023 5:24 AM CLOD PULLER) eGFR >90 >=60 mL/min/1. 73 m2 [facility] Comment: Interpretive Data Reference Interval Normal [...] interpretive data was last reviewed 2021. Blood 06/10/2023 5:24 AM CLOD PULLER 06/10/2023 5:45 AM CLOD PULLER us Nikhil Samuel MD LAB BLOOD ORDERABLES Sally zhang Result [facility] Department [place] [address] * (ABNORMAL) Differential, auto (06/10/2023 5:24 AM CLOD PULLER) Neutrophil abs 5.8 1.5 - 6.5 K/cumm [facility] Imm gran abs 0.1 0.0 - 0.1 K/cumm [facility] Lymphocyte abs 2.2 0.8 - 3.3 K/cumm [facility] Monocyte abs 1.3(H) 0.2 - 0.8 K/cumm [facility] Eosinophil abs 0.1 0.0 - 0.5 K/cumm [facility] Basophil abs 0.0 0.0 - 0.1 K/cumm [facility] Neutrophil pct 60.9 % [facility] Comment: Interpretive Data Percent cell count reference ranges are not reported, since discordance with absolute values may lead to misinterpretation of CBC data. Current Interpretive Data was last revised on 2017. Imm gran pct 1.1 % [facility] Comment: Interpretive Data Percent cell count reference ranges are not reported, since discordance with absolute values may lead to misinterpretation of CBC data. Current Interpretive Data was last revised on 2017. Lymphocyte pct 23.0 % [facility] Comment: Interpretive Data Percent cell count reference ranges are not reported, since discordance with absolute values may lead to misinterpretation of CBC data. Current Interpretive Data was last revised on 2017. Monocyte pct 13.7 % [facility] Comment: Interpretive Data Percent cell count reference ranges are not reported, since discordance with absolute values may lead to misinterpretation of CBC data. Current Interpretive Data was last revised on 2017. Eosinophil pct 0.9 % [facility] Comment: Interpretive Data Percent cell count reference ranges are not reported, since discordance with absolute values may lead to misinterpretation of CBC data. Current Interpretive Data was last revised on 2017. Basophil pct 0.4 % [facility] Comment: Interpretive Data Percent cell count reference ranges are not reported, since discordance with absolute values may lead to misinterpretation of CBC data. Current Interpretive Data was last revised on 2017. Blood 06/10/2023 5:24 AM CLOD PULLER 06/10/2023 5:45 AM CLOD PULLER us Nikhil Samuel MD LAB BLOOD ORDERABLES Sally l Result [facility] Department [place] [address] * (ABNORMAL) CBC with auto differential (06/10/2023 5:24 AM CLOD PULLER) WBC 9.5 3.8 - 9.9 K/cumm [facility] Hgb 10.7(L) 13.0 - 17.5 g/dL [facility] Hct 32.8(L) 38.9 - 50.3 % [facility] Plt 333 150 - 400 K/cumm [facility] MPV 9.0(L) 9.1 - 12.3 fL [facility] RBC 3.67(L) 4.30 - 5.80 M/cumm [facility] MCV 89.4 81.3 - 96.4 fL [facility] MCH 29.2 27.1 - 33.3 pg [facility] MCHC 32.6 32.3 - 35.7 g/dL [facility] RDW CV 13.7 11.1 - 14.9 % [facility] RDW SD 45.1 35.7 - 48.1 fL [facility] NRBC abs 0.00 0.00 - 0.01 K/cumm [facility] Blood 06/10/2023 5:24 AM CLOD PULLER 06/10/2023 5:45 AM CLOD PULLER us Nikhil Samuel MD LAB BLOOD ORDERABLES Sally l Result Performing Organization Address City/State/[facility] Co de Phone Number [facility] [place] [address] * Phosphorus (06/10/2023 5:24 AM CLOD PULLER) Phosphorus, pl 3.5 2.3 - 4.5 mg/dL [facility] Blood 06/10/2023 5:24 AM CLOD PULLER 06/10/2023 5:45 AM CLOD PULLER us Sreekanth Armstrong [employer] LAB BLOOD ORDERABLES Sally l Result Performing Organization Address City/[facility] Co de Phone Number [facility] [place] [address] * Magnesium (06/10/2023 5:24 AM CLOD PULLER) Magnesium 2.4 1.4 - 2.5 mg/dL [facility] Blood 06/10/2023 5:24 AM CLOD PULLER 06/10/2023 5:45 AM CLOD PULLER Sreekanth Armstrong [employer] LAB BLOOD ORDERABLES Sally l Result Performing Organization Address City/[facility] Co de Phone Number [facility] [place] [address] * XR Chest 1 View (06/09/2023 6:36 PM CLOD PULLER) Anatomical Region Laterality Modality Body, Chest N/A Computed Radiogr aphy 06/10/2023 8:59 AM CLOD PULLER Impressions 06/10/2023 9:23 AM CLOD PULLER Again noted is changes of thoracic and upper abdominal aortic stent graft. ??Left subclavian stent overlies chest. Mild left lower lobe atelectasis increased from prior radiograph. Low lung volumes. ??No pleural effusion. ??No pneumothorax. Cardiac silhouette stable from prior radiograph. Dictated by: Delta Doss MD The radiology attending physician has personally reviewed this study, and had reviewed and/or edited this written report and agrees with it. Electronically signed by: James Alvarado M.D. Narrative 06/10/2023 9:23 AM CLOD PULLER EXAMINATION: 1 view chest radiograph Comparison to chest radiograph from 06/08/2023 at 6:40 PM Procedure Note James Alvarado MD - 06/10/2023 EXAMINATION: 1 view chest radiograph Comparison to chest radiograph from 06/08/2023 at 6:40 PM IMPRESSION: Again noted is changes of thoracic and upper abdominal aortic stent graft. Left subclavian stent overlies chest. Mild left lower lobe atelectasis increased from prior radiograph. Low lung volumes. No pleural effusion. No pneumothorax. Cardiac silhouette stable from prior radiograph. Dictated by: Delta Doss MD The radiology attending physician has personally reviewed this study, and had reviewed and/or edited this written report and agrees with it. Electronically signed by: James Alvarado M.D. Sreekanth Armstrong NP IMG XR PROCEDURES Final R esult * eGFR (06/08/2023 8:53 PM CLOD PULLER) [facility] eGFR >90 >=60 mL/min/1. 73 m2 [facility] Comment: Interpretive Data Reference Interval [...] interpretive data was last reviewed 2021. Blood 06/08/2023 8:53 PM CLOD PULLER 06/08/2023 9:33 PM CLOD PULLER Sreekanth Armstrong [employer] LAB BLOOD ORDERABLES Sally l Result Performing Organization Address City/[facility]/ZIP Co de Phone Number [facility] [place] [address] * (ABNORMAL) Phosphorus (06/08/2023 8:53 PM CLOD PULLER) Phosphorus, pl 2.1(L) 2.3 - 4.5 mg/dL [facility] Blood 06/08/2023 8:53 PM CLOD PULLER 06/08/2023 9:33 PM CLOD PULLER Sreekanth Armstrong [employer] LAB BLOOD ORDERABLES Sally l Result [facility] Department [place] [address] * Magnesium (06/08/2023 8:53 PM CLOD PULLER) Magnesium 2.3 1.4 - 2.5 mg/dL [facility] Blood 06/08/2023 8:53 PM CLOD PULLER 06/08/2023 9:33 PM CL[facility] PULLER Sreekanth Armstrong [employer] LAB BLOOD ORDERABLES Sally l Result Performing Organization Address [facility] Co de Phone Number [facility] Department [place] [address] * Basic metabolic panel (06/08/2023 8:53 PM CLOD PULLER) [facility] Sodium 136 135 - 145 mmol/L [facility] Potassium, pl 3.7 3.3 - 4.9 mmol/L [facility] Chloride 101 97 - 110 mmol/L [facility] CO2 26 22 - 32 mmol/L [facility] Anion gap 9 2 - 15 mmol/L [facility] BUN 17 6 - 25 mg/dL [facility] Creatinine 1.01 0.80 - 1.30 mg/dL [facility] Glucose 164 70 - 199 mg/dL [facility] Comment: Interpretive Data Fasting glucose >/= [...] 2022. Calcium 8.6 8.5 - 10.3 mg/dL [facility] Blood 06/08/2023 8:53 PM CLOD PULLER 06/08/2023 9:33 PM CLOD PULLER Sreekanth Armstrong NP LAB BLOOD ORDERABLES Sally l Result Performing Organization Address [facility] Co de Phone Number [facility] Department [place] [address] * (ABNORMAL) CBC without differential (06/08/2023 8:53 PM CLOD PULLER) [facility] WBC 10.9(H) 3.8 - 9.9 K/cumm [facility] Hgb 9.6(L) 13.0 - 17.5 g/dL [facility] Hct 30.9(L) 38.9 - 50.3 % [facility] Plt 232 150 - 400 K/cumm [facility] MPV 9.4 9.1 - 12.3 fL [facility] RBC 3.42(L) 4.30 - 5.80 M/cumm [facility] MCV 90.4 81.3 - 96.4 fL [facility] MCH 28.1 27.1 - 33.3 pg [facility] MCHC 31.1(L) 32.3 - 35.7 g/dL [facility] RDW CV 14.2 11.1 - 14.9 % [facility] RDW SD 46.9 35.7 - 48.1 fL [facility] NRBC abs 0.00 0.00 - 0.01 K/cumm [facility] Blood 06/08/2023 8:53 PM CLOD PULLER 06/08/2023 9:34 PM CLOD PULLER Sreekanth Armstrong [employer] LAB BLOOD ORDERABLES Sally zhang Result [facility] Department [place] [address] * XR Chest 1 View (06/08/2023 7:33 PM CLOD PULLER) Anatomical Region Laterality Modality Body, Chest N/A Digital Radiogra phy 06/09/2023 8:50 AM CLOD PULLER Impressions 06/09/2023 2:10 PM CLOD PULLER The current study is compared with the prior radiograph dated ??06/07/2023 at 9:24 PM. Patient is status post aortic and subclavian stent placement. ??Lungs are clear. ??No pleural effusion or pneumothorax. ??Heart size unchanged. Dictated by: Dc Berrios MD The radiology attending physician has personally reviewed this study, and had reviewed and/or edited this written report and agrees with it. Electronically signed by: Marlee Jimenez M.D. Narrative 06/09/2023 2:10 PM CLOD PULLER EXAMINATION: 1 view chest radiograph Procedure Note Marlee Jimenez MD - 06/09/2023 EXAMINATION: 1 view chest radiograph IMPRESSION: The current study is compared with the prior radiograph dated 06/07/2023 at 9:24 PM. Patient is status post aortic and subclavian stent placement. Lungs are clear. No pleural effusion or pneumothorax. Heart size unchanged. Dictated by: Dc Berrios MD The radiology attending physician has personally reviewed this study, and had reviewed and/or edited this written report and agrees with it. Electronically signed by: Marlee Jimenez M.D. us Sreekanth Armstrong NP IMG XR PROCEDURES Final R esult * Critical Care (06/08/2023 7:32 AM CLOD PULLER) Narrative Mehul Brooks MD - 06/08/2023 7:32 AM CLOD PULLER Sreekanth Armstrong NP ? 06/08/2023 11:46 AM Critical Care Performed by: Sreekanth Armstrong NP Authorized by: Sreekanth Armstrong NP ?? CRITICAL CARE: ??Team: ??56 CTICU ??Shift: ??AM ??Level of Billing: ??Subsequent Hospital [...] plan with the patient's team and other medical/health care consultant staff. This time was in addition [...] CLINIC/BEDSIDE ORDERAB LES Final Result * eGFR (06/08/2023 12:03 AM CLOD PULLER) eGFR >90 >=60 mL/min/1. 73 m2 [facility]ON [...] interpretive data was last reviewed 2021. Blood 06/08/2023 12:0 3 AM CLOD PULLER 06/08/2023 12:26 AM CLOD PULLER us Sheila Winters SALESPERSON [employer] LAB BLOOD ORDERABLES F inal Result [facility] Department [place] [address] * (ABNORMAL) Lactate (06/08/2023 12:03 AM CLOD PULLER) Pathologist [facility] Lactate 0.6(L) 0.7 - 2.0 mmol/L [facility] Blood 06/08/2023 12:0 3 AM CLOD PULLER 06/08/2023 12:27 AM CLOD PULLER us Nikhil Samuel MD LAB BLOOD ORDERABLES Sally l Result Performing Organization Address City/[facility]/ZIP Co de Phone Number [facility] Department [place] [address] * (ABNORMAL) Basic metabolic panel (06/08/2023 12:03 AM CLOD PULLER) [facility] Sodium 135 135 - 145 mmol/L [facility] Potassium, pl 3.5 3.3 - 4.9 mmol/L [facility] Chloride 100 97 - 110 mmol/L [facility] CO2 27 22 - 32 mmol/L [facility] Anion gap 8 2 - 15 mmol/L [facility] BUN 16 6 - 25 mg/dL [facility] Creatinine 0.91 0.80 - 1.30 mg/dL [facility] Glucose 108 70 - 199 mg/dL [facility] Comment: Interpretive Data Fasting glucose >/= [...] 2022. Calcium 8.4(L) 8.5 - 10.3 mg/dL [facility] Blood 06/08/2023 12:0 3 AM CLOD PULLER 06/08/2023 12:26 AM CLOD PULLER us Sheila Winters NP LAB BLOOD ORDERABLES F inal Result Performing Organization Address [facility]/ZIP Co de Phone Number [facility] Department [place] [address] * (ABNORMAL) CBC without differential (06/08/2023 12:03 AM CLOD PULLER) WBC 11.8(H) 3.8 - 9.9 K/cumm [facility] Hgb 10.9(L) 13.0 - 17.5 g/dL [facility] Hct 31.8(L) 38.9 - 50.3 % [facility] Plt 260 150 - 400 K/cumm [facility] MPV 9.2 9.1 - 12.3 fL [facility] RBC 3.67(L) 4.30 - 5.80 M/cumm [facility] MCV 86.6 81.3 - 96.4 fL [facility] MCH 29.7 27.1 - 33.3 pg [facility] MCHC 34.3 32.3 - 35.7 g/dL [facility] RDW CV 13.8 11.1 - 14.9 % [facility] RDW SD 43.5 35.7 - 48.1 fL [facility] NRBC abs 0.00 0.00 - 0.01 K/cumm [facility] Blood 06/08/2023 12:0 3 AM CLOD PULLER 06/08/2023 12:26 AM CLOD PULLER Sheila Winters SAL[employer]ERSON [employer] LAB BLOOD ORDERABLES F inal Result Performing Organization Address City/[facility]/ZIP Co de Phone Number [facility] [place] [address] * Phosphorus (06/08/2023 12:03 AM CLOD PULLER) Pathologist [facility] Phosphorus, pl 2.8 2.3 - 4.5 mg/dL [facility] Blood 06/08/2023 12:0 3 AM CLOD PULLER 06/08/2023 12:26 AM CLOD PULLER Sreekanth Armstrong [employer] LAB BLOOD ORDERABLES Sally l Result [facility] Department [place] [address] * Magnesium (06/08/2023 12:03 AM CLOD PULLER) Magnesium 2.2 1.4 - 2.5 mg/dL [facility] Blood 06/08/2023 12:0 3 AM CLOD PULLER 06/08/2023 12:26 AM CLOD PULLER Sreekanth Armstrong NP LAB BLOOD [place] [address] * Type and screen (06/08/2023 12:03 AM CLOD PULLER) ABO Rh A Positive Ellen, indirect Negative [facility] Blood 06/08/2023 12:0 3 AM CLOD PULLER 06/08/2023 12:30 AM CLOD PULLER Narrative [facility] - 06/08/2023 1:20 AM CLOD PULLER Has the patient had Daratumumab or Isatuximab in the past 6 months?->Unknown Sreekanth Armstrong NP LAB BLOOD BANK TEST ORDER CAROLINE Final Result Performing Organization Address City/[facility] Co de Phone Number [facility] Department [place] [address] * XR Chest 1 View (06/07/2023 9:36 PM CLOD PULLER) Anatomical Region Laterality Modality Body, Chest N/A Computed Radiogr aphy 06/08/2023 9:22 AM CLOD PULLER Impressions 06/08/2023 7:31 PM CLOD PULLER Changes of thoracic and abdominal aortic stent graft with left subclavian stent. The lungs are clear without focal opacity. ??There is no pleural effusion. ??There is no pneumothorax. Cardiac silhouette is stable from prior radiograph. Dictated by: Delta Doss MD The radiology attending physician has personally reviewed this study, and had reviewed and/or edited this written report and agrees with it. Electronically signed by: Gen Baker M.D. Narrative 06/08/2023 7:31 PM CLOD PULLER EXAMINATION: 1 view chest radiograph Comparison to chest radiograph from 06/06/2023 at 7:27 PM Procedure Note Gen Baker MD - 06/08/2023 EXAMINATION: 1 view chest radiograph Comparison to chest radiograph from 06/06/2023 at 7:27 PM IMPRESSION: Changes of thoracic and abdominal aortic stent graft with left subclavian stent. The lungs are clear without focal opacity. There is no pleural effusion. There is no pneumothorax. Cardiac silhouette is stable from prior radiograph. Dictated by: Delta Doss MD The radiology attending physician has personally reviewed this study, and had reviewed and/or edited this written report and agrees with it. Electronically signed by: Gen Baker M.D. Sreekanth Armstrong [employer]ERSON [employer] IMG XR PROCEDURES Final R esult * Critical Care (06/07/2023 7:53 PM CLOD PULLER) Narrative Mehul Brooks MD - 06/07/2023 7:53 PM CLOD PULLER Roldan Campbell PA ? 06/08/2023 ??4:34 AM Critical Care Performed by: Roldan Campbell PA Authorized by: Roldan Campbell PA ?? CRITICAL CARE: ??Team: ??83 CTICU [...] plan with the ICU team and other medical/health care consultant staff, making frequent assessments and decisions [...] time documenting in the medical record us Roldan BRADFORD IN CLINIC/BEDSIDE ORDERAB LES Final Result * US Lower Extremity Left Limited (06/07/2023 2:29 PM CLOD PULLER) Anatomical Region Laterality Modality Lower Extremities Left Ultrasound 06/07/2023 3:02 PM CLOD PULLER Impressions 06/07/2023 4:09 PM CLOD PULLER 1. No pseudoaneurysm or arteriovenous fistula of the left groin. 2. No groin hematoma. Dictated by: Sherri Banerjee MD The radiology attending physician has personally reviewed this study, and had reviewed and/or edited this written report and agrees with it. Electronically signed by: Monster Easley M.D. Narrative 06/07/2023 4:09 PM CLOD PULLER EXAMINATION: LIMITED LEFT GROIN SONOGRAM AND DOPPLER HISTORY: ??Type B aortic dissection status post endovascular repair 06/05/2023 COMPARISON: ??None FINDINGS: SONOGRAM: Normal left groin. ??No fluid collection visualized. DOPPLER: Color Doppler and spectral analysis were used to evaluate the groin vessels. The distal external iliac and proximal femoral artery and vein show normal waveforms. No extravascular blood flow is identified. There is no tissue vibration. There is no Doppler or fernandes-scale evidence of a pseudoaneurysm or arteriovenous fistula. Procedure Note Monster Easley MD - 06/07/2023 EXAMINATION: LIMITED LEFT GROIN SONOGRAM AND DOPPLER HISTORY: Type B aortic dissection status post endovascular repair 06/05/2023 COMPARISON: None FINDINGS: SONOGRAM: Normal left groin. No fluid collection visualized. DOPPLER: Color Doppler and spectral analysis were used to evaluate the groin vessels. The distal external iliac and proximal femoral artery and vein show normal waveforms. No extravascular blood flow is identified. There is no tissue vibration. There is no Doppler or fernandes-scale evidence of a pseudoaneurysm or arteriovenous fistula. IMPRESSION: 1. No pseudoaneurysm or arteriovenous fistula of the left groin. 2. No groin hematoma. Dictated by: Sherri Banerjee MD The radiology attending physician has personally reviewed this study, and had reviewed and/or edited this written report and agrees with it. Electronically signed by: Monster Easley M.D. us Sreekanth Armstrong NP IMG US PROCEDURES Final R esult * Critical Care (06/07/2023 6:19 AM CLOD PULLER) Narrative Mehul Brooks MD - 06/07/2023 6:19 AM CLOD PULLER Sreekanth Armstorng NP ? 06/07/2023 ??5:10 PM Critical Care Performed by: Sreekanth Armstrong [...] plan with the ICU team and other medical/health care consultant staff, making frequent assessments and decisions [...] CLINIC/BEDSIDE ORDERAB LES Final Result * eGFR (06/07/2023 12:11 AM CLOD PULLER) [facility] eGFR >90 >=60 mL/min/1. 73 m2 [facility] Comment: Interpretive Data Reference Interval [...] interpretive data was last reviewed 2021. Blood 06/07/2023 12:1 1 AM CLOD PULLER 06/07/2023 12:32 AM CLOD PULLER us Sheila Winters [employer] LAB BLOOD ORDERABLES F inal Result [facility] Department [place] [address] * (ABNORMAL) Basic metabolic panel (06/07/2023 12:11 AM CLOD PULLER) Sodium 134(L) 135 - 145 mmol/L [facility] Potassium, pl 3.7 3.3 - 4.9 mmol/L [facility] Chloride 97 97 - 110 mmol/L [facility] CO2 28 22 - 32 mmol/L [facility] Anion gap 9 2 - 15 mmol/L [facility] BUN 8 6 - 25 mg/dL [facility] Creatinine 0.80 0.80 - 1.30 mg/dL [facility] Glucose 114 70 - 199 mg/dL [facility] Comment: Interpretive Data Fasting glucose >/= [...] 2022. Calcium 8.5 8.5 - 10.3 mg/dL [facility] Blood 06/07/2023 12:1 1 AM CLOD PULLER 06/07/2023 12:32 AM CLOD PULLER Sheila Winters [employer]ERSON [employer] LAB BLOOD ORDERABLES F inal Result [facility] Department [place] [address] * (ABNORMAL) CBC without differential (06/07/2023 12:11 AM CLOD PULLER) WBC 11.2(H) 3.8 - 9.9 K/cumm [facility] Hgb 11.1(L) 13.0 - 17.5 g/dL [facility] Hct 33.1(L) 38.9 - 50.3 % [facility] Plt 270 150 - 400 K/cumm [facility] MPV 9.3 9.1 - 12.3 fL [facility] RBC 3.82(L) 4.30 - 5.80 M/cumm [facility] MCV 86.6 81.3 - 96.4 fL [facility] MCH 29.1 27.1 - 33.3 pg [facility] MCHC 33.5 32.3 - 35.7 g/dL [facility] RDW CV 13.4 11.1 - 14.9 % [facility] RDW SD 42.0 35.7 - 48.1 fL [facility] NRBC abs 0.00 0.00 - 0.01 K/cumm [facility] Blood 06/07/2023 12:1 1 AM CLOD PULLER 06/07/2023 12:32 AM CLOD PULLER Sheila Winters [employer] LAB BLOOD ORDERABLES F inal Result [facility] [place] [address] * (ABNORMAL) Phosphorus (06/07/2023 12:11 AM CLOD PULLER) Phosphorus, pl 2.0(L) 2.3 - 4.5 mg/dL [facility] Blood 06/07/2023 12:1 1 AM CLOD PULLER 06/07/2023 12:32 AM CLOD PULLER Sreekanth Armstrong [employer] LAB BLOOD ORDERABLES Sally l Result Performing Organization Address City/[facility]/ZIP Co de Phone Number [facility] [place] [address] * Magnesium (06/07/2023 12:11 AM CLOD PULLER) Magnesium 2.1 1.4 - 2.5 mg/dL [facility] Blood 06/07/2023 12:1 1 AM CLOD PULLER 06/07/2023 12:32 AM CLOD PULLER Sreekanth Armstrong [employer] LAB BLOOD ORDERABLES Sally l Result [facility] [place] [address] * XR Chest 1 View (06/06/2023 7:40 PM CLOD PULLER) Anatomical Region Laterality Modality Body, Chest N/A Computed Radiogr aphy 06/07/2023 9:17 AM CLOD PULLER Impressions 06/07/2023 12:50 PM CLOD PULLER Changes of aortic vascular stent extending the aortic arch to the upper abdominal aorta. ??An additional stent projects over the left subclavian origin. Lungs are clear without focal opacity. ??No pleural effusion. ??No pneumothorax. Cardiomediastinal silhouette is stable from prior radiograph. Dictated by: Delta Doss MD The radiology attending physician has personally reviewed this study, and had reviewed and/or edited this written report and agrees with it. Electronically signed by: Taco Wallace M.D. Narrative 06/07/2023 12:50 PM CLOD PULLER EXAMINATION: 1 view chest radiograph Comparison made to chest radiograph from 06/05/2023 at 6:48 PM Procedure Note Taco Wallace MD PhD - 06/07/2023 EXAMINATION: 1 view chest radiograph Comparison made to chest radiograph from 06/05/2023 at 6:48 PM IMPRESSION: Changes of aortic vascular stent extending the aortic arch to the upper abdominal aorta. An additional stent projects over the left subclavian origin. Lungs are clear without focal opacity. No pleural effusion. No pneumothorax. Cardiomediastinal silhouette is stable from prior radiograph. Dictated by: Delta Doss MD The radiology attending physician has personally reviewed this study, and had reviewed and/or edited this written report and agrees with it. Electronically signed by: Taco Wallace M.D. Benny Isaacs NP IMG XR PROCEDURES Final Result * Critical Care (06/06/2023 6:30 PM CLOD PULLER) Narrative Mehul Brooks MD - 06/06/2023 6:30 PM CLOD PULLER Benny Isaacs NP ? 06/07/2023 ??4:28 AM Critical Care Performed by: Benny Isaasc NP Authorized by: Benny Isaacs NP ?? CRITICAL CARE: ??Team: ??83 CTICU [...] plan with the ICU team and other medical/health care consultant staff, making frequent assessments and decisions [...] time documenting in the medical record us Benny Isaacs NP IN CLINIC/BEDSIDE ORDERABLES F inal Result * eGFR (06/06/2023 8:14 AM CLOD PULLER) [facility] eGFR >90 >=60 mL/min/1. 73 m2 [facility] Comment: Interpretive Data Reference Interval [...] interpretive data was last reviewed 2021. Blood 06/06/2023 8:14 AM CLOD PULLER 06/06/2023 8:45 AM CLOD PULLER Sheila Winters [employer]ERSON [employer] LAB BLOOD ORDERABLES F inal Result Performing Organization Address [facility] de Phone Number [facility] Department [place] [address] * (ABNORMAL) CBC without differential (06/06/2023 8:14 AM CLOD PULLER) [facility] WBC 8.9 3.8 - 9.9 K/cumm [facility] Hgb 10.7(L) 13.0 - 17.5 g/dL [facility] Hct 32.6(L) 38.9 - 50.3 % [facility] Plt 254 150 - 400 K/cumm [facility] MPV 8.9(L) 9.1 - 12.3 fL [facility] RBC 3.74(L) 4.30 - 5.80 M/cumm [facility] MCV 87.2 81.3 - 96.4 fL [facility] MCH 28.6 27.1 - 33.3 pg [facility] MCHC 32.8 32.3 - 35.7 g/dL [facility] RDW CV 13.4 11.1 - 14.9 % [facility] RDW SD 42.4 35.7 - 48.1 fL [facility] NRBC abs 0.00 0.00 - 0.01 K/cumm [facility] Blood 06/06/2023 8:14 AM CLOD PULLER 06/06/2023 8:27 AM CLOD PULLER Sheila Winters [employer]ERSON [employer] LAB BLOOD ORDERABLES F inal Result Performing Organization Address [facility] de Phone Number [facility] Department [place] [address] * (ABNORMAL) Basic metabolic panel (06/06/2023 8:14 AM CLOD PULLER) [facility] Sodium 137 135 - 145 mmol/L [facility] Potassium, pl 3.6 3.3 - 4.9 mmol/L [facility] Chloride 100 97 - 110 mmol/L [facility] CO2 30 22 - 32 mmol/L [facility] Anion gap 7 2 - 15 mmol/L [facility] BUN 7 6 - 25 mg/dL [facility] Creatinine 0.91 0.80 - 1.30 mg/dL [facility] Glucose 97 70 - 199 mg/dL [facility] Comment: Interpretive Data Fasting glucose >/= [...] 2022. Calcium 8.4(L) 8.5 - 10.3 mg/dL [facility] Blood 06/06/2023 8:14 AM CLOD PULLER 06/06/2023 8:27 AM CLOD PULLER us Sheila Winters NP LAB BLOOD ORDERABLES F inal Result [facility] Department [place] [address] * Critical Care (06/06/2023 7:00 AM CLOD PULLER) Narrative Mehul Brooks MD - 06/06/2023 7:00 AM CLOD PULLER Sheila Winters NP ? 06/06/2023 11:08 AM Critical Care Performed by: Sheila Winters NP Authorized by: Sheila Winters NP ?? CRITICAL CARE: ??Team: ??83 CTICU [...] plan with the ICU team and other medical/health care consultant staff, making frequent assessments and decisions [...] spent time documenting in the medical record Sheila Winters SALESPERSON [employer] IN CLINIC/BEDSIDE SHAUNA LOPEZ Final Result * Basic metabolic panel (06/06/2023 12:06 AM CLOD PULLER) Sodium 141 135 - 145 mmol/L [facility] Potassium, pl 3.4 3.3 - 4.9 mmol/L [facility] Chloride 103 97 - 110 mmol/L [facility] CO2 28 22 - 32 mmol/L [facility] Anion gap 10 2 - 15 mmol/L [facility] BUN 9 6 - 25 mg/dL [facility] Creatinine 1.13 0.80 - 1.30 mg/dL [facility] Glucose 100 70 - 199 mg/dL [facility] Comment: Interpretive Data Fasting glucose >/= [...] interpretive data was last revised 2022. Calcium 8.8 8.5 - 10.3 mg/dL [facility] Blood 06/06/2023 12:0 6 AM CLOD PULLER 06/06/2023 12:28 AM CLOD PULLER us Nikhil Samuel MD LAB BLOOD ORDERABLES Sally l Result Performing Organization Address [facility] Co de Phone Number [facility] Department [place] [address] * eGFR (06/06/2023 12:06 AM CLOD PULLER) eGFR 89 >=60 mL/min/1. 73 m2 [facility] Comment: Interpretive Data Reference Interval Normal [...] interpretive data was last reviewed 2021. Blood 06/06/2023 12:0 6 AM CLOD PULLER 06/06/2023 12:40 AM CLOD PULLER us Nikhil Samuel MD LAB BLOOD ORDERABLES Sally l Result [facility] [place] [address] * Phosphorus (06/06/2023 12:06 AM CLOD PULLER) [facility] Phosphorus, pl 3.1 2.3 - 4.5 mg/dL [facility] Comment:Reviewed Blood 06/06/2023 12:0 6 AM CLOD PULLER 06/06/2023 12:28 AM CLOD PULLER Sreekanth Armstrong SALESPERSON [employer] LAB BLOOD ORDERABLES Sally l Result Performing Organization Address [facility] Co de Phone Number [facility] [place] [address] * Magnesium (06/06/2023 12:06 AM CLOD PULLER) [facility] Magnesium 1.9 1.4 - 2.5 mg/dL [facility] Blood 06/06/2023 12:0 6 AM CLOD PULLER 06/06/2023 12:28 AM CLOD PULLER Sreekanth Armstrong SALESPERSON [employer] LAB BLOOD ORDERABLES Sally l Result Performing Organization Address [facility] de Phone Number [facility] [place] [address] * (ABNORMAL) CBC without differential (06/06/2023 12:06 AM CLOD PULLER) [facility] WBC 9.0 3.8 - 9.9 K/cumm [facility] Hgb 10.2(L) 13.0 - 17.5 g/dL [facility] Hct 30.0(L) 38.9 - 50.3 % [facility] Plt 259 150 - 400 K/cumm [facility] MPV 9.1 9.1 - 12.3 fL [facility] RBC 3.47(L) 4.30 - 5.80 M/cumm [facility] [facility] MCV 86.5 81.3 - 96.4 fL [facility] MCH 29.4 27.1 - 33.3 pg [facility] MCHC 34.0 32.3 - 35.7 g/dL [facility] RDW CV 13.6 11.1 - 14.9 % [facility] RDW SD 42.5 35.7 - 48.1 fL [facility] NRBC abs 0.00 0.00 - 0.01 K/cumm [facility] Blood 06/06/2023 12:0 6 AM CLOD PULLER 06/06/2023 12:24 AM CLOD PULLER us Sheila Winters SALESPERSON [employer]RA[employer]ILES LAB BLOOD ORDERABLES F inal Result [facility] Department [place] [address] * XR Chest 1 View (06/05/2023 7:37 PM CLOD PULLER) Anatomical Region Laterality Modality Body, Chest N/A Computed Radiogr aphy 06/06/2023 7:52 AM CLOD PULLER Impressions 06/06/2023 7:52 AM CLOD PULLER Comparison is made to chest radiograph dated 06/04/2023. Hypoinflated lungs with left greater than right mild bibasilar atelectasis, similar to prior study. ??No pleural effusion or pneumothorax. Stable borderline enlarged cardiac silhouette. ??Unchanged stent in the aortic arch and descending aorta with interval placement of the stent extending from the descending aorta into the abdominal aorta. Unchanged left superior mediastinal vascular stent. Electronically signed by: Faiza Su M.D. Narrative 06/06/2023 7:52 AM CLOD PULLER EXAMINATION: 1 view chest radiograph Procedure Note Faiza Su MD - 06/06/2023 EXAMINATION: 1 view chest radiograph IMPRESSION: Comparison is made to chest radiograph dated 06/04/2023. Hypoinflated lungs with left greater than right mild bibasilar atelectasis, similar to prior study. No pleural effusion or pneumothorax. Stable borderline enlarged cardiac silhouette. Unchanged stent in the aortic arch and descending aorta with interval placement of the stent extending from the descending aorta into the abdominal aorta. Unchanged left superior mediastinal vascular stent. Electronically signed by: Faiza Su M.D. Benny Isaacs NP IMG XR PROCEDURES Final Result * Critical Care (06/05/2023 6:37 PM CLOD PULLER) Narrative Mehul Brooks MD - 06/05/2023 6:37 PM CLOD PULLER Benny Isaacs NP ? 06/06/2023 ??5:13 AM Critical Care Performed by: Benny Isaacs NP Authorized by: Benny Isaacs NP ?? CRITICAL CARE: ??Team: ??83 CTICU ??Shift: ??PM ??Level of Billing: ??Critical Care ??My time spent with this patient was 60 minutes: Critical Provider Statement: I have seen and examined the patient on this day of service. I have reviewed and confirmed the history, physical exam, laboratory and radiologic data as documented in the signed ICU note. I have reviewed and discussed my treatment plan with the ICU team and other medical/health care consultant staff, making frequent assessments and decisions [...] spent time documenting in the medical record Benny Isaacs NP IN CLINIC/BEDSIDE ORDERABLES F inal Result * Transfuse RBC (06/05/2023 3:17 PM CLOD PULLER) Blood Sreekanth Armstrong NP BLOOD TRANSFUSION ORDERAB LES Final Result [facility]ER [facility] Department [place] [address] * aPTT (06/05/2023 2:53 PM CLOD PULLER) aPTT 32 28 - 38 sec [facility] Comment: Interpretive Data Heparin therapeutic range: 66.0 - 100.0 seconds. Range based on correlation with therapeutic heparin activity range of 0.3 - 0.7 Units/mL. Current interpretive data was last revised on 2023. Blood 06/05/2023 2:53 PM CLOD PULLER 06/05/2023 3:05 PM CLOD PULLER Sheila Winters SALESPERSON [employer] LAB BLOOD ORDERABLES F inal Result Performing Organization Address [facility] Co de Phone Number [facility] [place] [address] * (ABNORMAL) Protime-INR (06/05/2023 2:53 PM CLOD PULLER) [facility] PT 15.3(H) 10.3 - 13.7 sec [facility] INR 1.34(H) 0.90 - 1.20 [facility] Comment: Interpretive data Oral anticoagulant therapeutic ranges: Venous thromboembolism prophylaxis or treatment: 2.0-3.0 CARDIOLOGY Standard range: 2.0-3.0 High-intensity range: 2.5-3.5 Refer to indication-specific guidelines for appropriate target ranges for prosthetic heart valve replacement. Current interpretive data was last revised on 2019. Blood 06/05/2023 2:53 PM CLOD PULLER 06/05/2023 3:05 PM CLOD PULLER Sheila Winters SALESPERSON [employer]ZZ[employer]ES LAB BLOOD ORDERABLES F inal Result Performing Organization Address [facility] Co de Phone Number [facility] [place] [address] * (ABNORMAL) eGFR (06/05/2023 1:34 PM CLOD PULLER) Pathologist [facility] eGFR 54(L) >=60 mL/min/1. 73 m2 [facility] Comment: Interpretive Data Reference Interval Normal [...] interpretive data was last reviewed 2021. Blood 06/05/2023 1:34 PM CLOD PULLER 06/05/2023 2:05 PM CLOD PULLER Sheila Winters SALESPERSON TER[employer]ZZ[employer] T[employer]ES LAB BLOOD ORDERABLES F inal Result Performing Organization Address City/State/[facility] Co de Phone Number [facility] Department [place] [address] * (ABNORMAL) Differential, auto (06/05/2023 1:34 PM CLOD PULLER) Neutrophil abs 10.3(H) 1.5 - 6.5 K/cumm [facility] Imm gran abs 0.3(H) 0.0 - 0.1 K/cumm [facility] Lymphocyte abs 1.3 0.8 - 3.3 K/cumm [facility] Monocyte abs 0.5 0.2 - 0.8 K/cumm [facility] Eosinophil abs 0.1 0.0 - 0.5 K/cumm [facility] Basophil abs 0.0 0.0 - 0.1 K/cumm [facility] Neutrophil pct 82.4 % [facility] Comment: Interpretive Data Percent cell count reference ranges are not reported, since discordance with absolute values may lead to misinterpretation of CBC data. Current Interpretive Data was last revised on 2017. Imm gran pct 2.6 % [facility] Comment: Interpretive Data Percent cell count reference ranges are not reported, since discordance with absolute values may lead to misinterpretation of CBC data. Current Interpretive Data was last revised on 2017. Lymphocyte pct 10.5 % [facility] Comment: Interpretive Data Percent cell count reference ranges are not reported, since discordance with absolute values may lead to misinterpretation of CBC data. Current Interpretive Data was last revised on 2017. Monocyte pct 3.8 % [facility] Comment: Interpretive Data Percent cell count reference ranges are not reported, since discordance with absolute values may lead to misinterpretation of CBC data. Current Interpretive Data was last revised on 2017. Eosinophil pct 0.5 % [facility] Comment: Interpretive Data Percent cell count reference ranges are not reported, since discordance with absolute values may lead to misinterpretation of CBC data. Current Interpretive Data was last revised on 2017. Basophil pct 0.2 % [facility] Comment: Interpretive Data Percent cell count reference ranges are not reported, since discordance with absolute values may lead to misinterpretation of CBC data. Current Interpretive Data was last revised on 2017. Blood 06/05/2023 1:34 PM CLOD PULLER 06/05/2023 2:05 PM CLOD PULLER us Sheila Winters SALESPERSON [employer]ES LAB BLOOD ORDERABLES F inal Result [facility] Department [place] [address] * (ABNORMAL) Phosphorus (06/05/2023 1:34 PM CLOD PULLER) Phosphorus, pl 5.8(H) 2.3 - 4.5 mg/dL [facility] Blood 06/05/2023 1:34 PM CLOD PULLER 06/05/2023 2:05 PM CLOD PULLER Sheila Winters SALESPERSON [employer] LAB BLOOD ORDERABLES F inal Result Performing Organization Address [facility] Co de Phone Number [facility] [place] [address] * Magnesium (06/05/2023 1:34 PM CLOD PULLER) [facility] Magnesium 2.1 1.4 - 2.5 mg/dL [facility] Blood 06/05/2023 1:34 PM CLOD PULLER 06/05/2023 2:05 PM CLOD PULLER Sheila Winters SALESPERSON [employer] LAB BLOOD ORDERABLES F inal Result Performing Organization Address [facility] de Phone Number [facility] [place] [address] * (ABNORMAL) Basic metabolic panel (06/05/2023 1:34 PM CLOD PULLER) [facility] Sodium 139 135 - 145 mmol/L [facility] Potassium, pl 4.0 3.3 - 4.9 mmol/L [facility] Chloride 104 97 - 110 mmol/L [facility] CO2 23 22 - 32 mmol/L [facility] Anion gap 12 2 - 15 mmol/L [facility] BUN 14 6 - 25 mg/dL [facility] Creatinine 1.71(H) 0.80 - 1.30 mg/dL [facility] Glucose 90 70 - 199 mg/dL [facility] Comment: Interpretive Data Fasting glucose >/= [...] 2022. Calcium 8.7 8.5 - 10.3 mg/dL [facility] Blood 06/05/2023 1:34 PM CLOD PULLER 06/05/2023 2:05 PM CLOD PULLER Sheila Winters SALESPERSON [employer]ES LAB BLOOD ORDERABLES F inal Result Performing Organization Address [facility] Co de Phone Number [facility] Department [place] [address] * (ABNORMAL) CBC with auto differential (06/05/2023 1:34 PM CLOD PULLER) [facility] WBC 12.5(H) 3.8 - 9.9 K/cumm [facility] Hgb 10.4(L) 13.0 - 17.5 g/dL [facility] Hct 31.7(L) 38.9 - 50.3 % [facility] Plt 267 150 - 400 K/cumm [facility] MPV 8.8(L) 9.1 - 12.3 fL [facility] RBC 3.59(L) 4.30 - 5.80 M/cumm [facility] MCV 88.3 81.3 - 96.4 fL [facility] MCH 29.0 27.1 - 33.3 pg [facility] MCHC 32.8 32.3 - 35.7 g/dL [facility] RDW CV 13.4 11.1 - 14.9 % [facility] RDW SD 43.4 35.7 - 48.1 fL [facility] NRBC abs 0.00 0.00 - 0.01 K/cumm [facility] Blood 06/05/2023 1:34 PM CLOD PULLER 06/05/2023 2:05 PM CLOD PULLER Sheila Winters NP LAB BLOOD ORDERABLES F inal Result Performing Organization Address City/[facility] Co de Phone Number [facility] [place] [place] [address] * THORACIC ENDOVASCULAR REPAIR - AORTIC (06/05/2023 1:15 PM CLOD PULLER) Anatomical Region Laterality Modality X-Ray Angiograph y Narrative 06/05/2023 1:51 PM CLOD PULLER Please see OpNote for result. us Nikhil Samuel MD SURGICAL CASE ORDERS Sally l Result * POCT Activated clotting time, low range (06/05/2023 12:42 PM CLOD PULLER) ACT 150 123 - 168 sec [facility] POC Performer [id number] [facility] POC Device Number [id number] [facility] Blood 06/05/2023 12:4 2 PM CLOD PULLER 06/05/2023 12:42 PM CLOD PULLER us Nikhil Samuel MD LAB POCT ORDERABLES - DEV ICE Final Result Performing Organization Address [facility] Co de Phone Number [facility] [place] [address] * (ABNORMAL) POCT Activated clotting time, low range (06/05/2023 12:29 PM CLOD PULLER) ACT 219(H) 123 - 168 sec [facility] POC Performer [id number] [facility] POC Device Number [id number] [facility] Blood 06/05/2023 12:2 9 PM CLOD PULLER 06/05/2023 12:29 PM CLOD PULLER us Nikhil Samuel MD LAB POCT ORDERABLES - DEV ICE Final Result Performing Organization Address City/[facility] Co de Phone Number [facility] Department [place] [address] * (ABNORMAL) POCT Activated clotting time, low range (06/05/2023 11:49 AM CLOD PULLER) ACT 244(H) 123 - 168 sec [facility] POC Performer [id number] [facility] POC Device Number [id number] [facility] Blood 06/05/2023 11:4 9 AM CLOD PULLER 06/05/2023 11:49 AM CLOD PULLER us Nikhil Samuel MD LAB POCT ORDERABLES - DEV ICE Final Result Performing Organization Address [facility] Co de Phone Number [facility] [place] [address] * Transfuse RBC (06/05/2023 11:36 AM CLOD PULLER) Blood us Ney Alex MD BLOOD TRANSFUSION ORD ERABLES Final Result Performing Organization Address [facility] Co de Phone Number [facility] [place] [address] * (ABNORMAL) POCT Activated clotting time, low range (06/05/2023 11:27 AM CLOD PULLER) ACT 250(H) 123 - 168 sec [facility] POC Performer [id number] [facility] POC Device Number [id number] [facility] Blood 06/05/2023 11:2 7 AM CLOD PULLER 06/05/2023 11:27 AM CLOD PULLER us Nikhil Samuel MD LAB POCT ORDERABLES - DEV ICE Final Result Performing Organization Address [facility] de Phone Number [facility] [place] [address] * (ABNORMAL) POC Blood Gas and Chemistries, Arterial - (06/05/2023 11:19 AM CLOD PULLER) pH, Art POC 7.33(L) 7.35 - 7.45 [facility] pCO2, Art POC 43 35 - 45 mmHg [facility] pO2, Art POC 146(H) 83 - 108 mmHg [facility] Na, POC 139 135 - 145 mmol/L [facility] K POC 4.5 3.3 - 4.9 mmol/L [facility] Comment: Interpretive Data This method is not able to assess for hemolysis, which may falsely increase potassium concentrations. If further testing is needed to evaluate this result, consider in-laboratory plasma potassium. Current Interpretive Data was last revised on 2022. Cl, POC 108 97 - 110 mmol/L [facility] Ionized Ca, POC 4.70 4.50 - 5.10 mg/dL [facility] Glucose, POC 115 70 - 199 mg/dL [facility] Lactate, POC 1.8 0.7 - 2.2 mmol/L [facility] SO2 (natalia) arterial 100(H) 90 - 95 % [facility] Base excess, POC -3.1 mmol/L [facility] HCO3, Art POC 23 20 - 30 mmol/L [facility] Hct, POC 24.0(L) 41.4 - 51.6 % [facility] O2 Sat, Art POC (Calc) 99 % [facility] Total Hb, POC 7.9(L) 13.8 - 17.2 g/dL [facility] Blood 06/05/2023 11:1 9 AM CLOD PULLER 06/05/2023 11:19 AM CLOD PULLER us Nikhil Samuel MD LAB POCT ORDERABLES - DEV ICE Final Result Performing Organization Address City/[facility]/ZIP Co de Phone Number [facility] [place] [address] * Transfuse RBC (06/05/2023 9:13 AM CLOD PULLER) Blood us Sreekanth Armstrong NP BLOOD TRANSFUSION ORDERAB LES Final Result Performing Organization Address City/[facility]/ZIP Co de Phone Number [facility] [place] [address] * Prepare RBC: 4 Units (06/05/2023 7:54 AM CLOD PULLER) Product code [id number] CER[facility]LE ERWIN Unit Number [id number] CERADELE ERWIN Product Blood Type APOS CERADELE BJRubina Dispense Status PRESUMED TRANSFUSED CERNER BJRubina Product code [id number] [facility] Unit Number [id number] CERADELE BJRubina Product Blood Type APOS [facility]ER [facility] Dispense Status PRESUMED TRANSFUSED CERNER BJRubina Product code [id number] Unit Number [id number] CERNER BJ Product Blood Type APOS CERNER BJ Dispense Status RETURNED CERADELE BJRubina Product code [id number] CERADELE BJ Unit Number [id number] CERADELE BJ Product Blood Type APOS CERNER BJ Dispense Status PRESUMED TRANSFUSED [facility] Blood 06/05/2023 7:54 AM CLOD PULLER 06/05/2023 7:54 AM CLOD PULLER Narrative JAIRON COLON - 06/07/2023 7:41 AM CLOD PULLER Specify Procedure:->EVAR Are special requirements needed? (All products are leukoreduced and CMV- safe)- >No Date required:-[id number] LRRBC # of [id number] Reasons:-Pre-op Hgb <8 g/dL} us Sheila Winters NP BLOOD BANK PRODUCT ORD ERABLES Final Result [facility] Department [place] [address] * Critical Care (06/05/2023 6:40 AM CLOD PULLER) Narrative Mehul Brooks MD - 06/05/2023 6:40 AM CLOD PULLER Sheila Winters NP ? 06/05/2023 12:01 PM Critical Care Performed by: Sheila Winters NP Authorized by: Sheila Winters NP ?? CRITICAL CARE: ??Team: ??83 CTICU ??Shift: ??AM ??Level of Billing: ??Critical Care ??My time spent with this patient was 60 minutes: Critical Provider Statement: I have seen and examined the patient on this day of service. I have reviewed and confirmed the history, physical exam, laboratory and radiologic data as documented in the signed ICU note. I have reviewed and discussed my treatment plan with the ICU team and other medical/health care consultant staff, making frequent assessments and decisions [...] spent time documenting in the medical record Sheila Winters NP IN CLINIC/BEDSIDE SHAUNA LOPEZ Final Result * (ABNORMAL) eGFR (06/05/2023 5:27 AM CLOD PULLER) [facility] eGFR 52(L) >=60 mL/min/1. 73 m2 [facility] Comment: Interpretive Data Reference Interval Normal [...] interpretive data was last reviewed 2021. Blood 06/05/2023 5:27 AM CLOD PULLER 06/05/2023 5:38 AM CLOD PULLER Alonzo Duncan MD LAB BLOOD ORDERABLES Fin al Result Performing Organization Address City/[facility] Co de Phone Number [facility] [place] [address] * (ABNORMAL) Phosphorus (06/05/2023 5:27 AM CLOD PULLER) Phosphorus, pl 5.4(H) 2.3 - 4.5 mg/dL [facility] Blood 06/05/2023 5:27 AM CLOD PULLER 06/05/2023 5:38 AM CLOD PULLER Sreekanth Armstrong NP LAB BLOOD ORDERABLES Sally l Result Performing Organization Address [facility] de Phone Number [facility] [place] [address] * Magnesium (06/05/2023 5:27 AM CLOD PULLER) Magnesium 2.2 1.4 - 2.5 mg/dL [facility] Blood 06/05/2023 5:27 AM CLOD PULLER 06/05/2023 5:38 AM CLOD PULLER Sreekanth Armstrong SALESPERSON [employer]ES LAB BLOOD ORDERABLES Sally l Result Performing Organization Address [facility] de Phone Number [facility] [place] [address] * Lactate, whole blood (06/05/2023 5:27 AM CLOD PULLER) Lactate, bld 1.0 0.7 - 2.0 mmol/L [facility] Blood 06/05/2023 5:27 AM CLOD PULLER 06/05/2023 5:33 AM CLOD PULLER us Sherlyn Alicea MD LAB BLOOD ORDERABLES F inal Result Performing Organization Address [facility] Co de Phone Number [facility] Department [place] [address] * (ABNORMAL) CBC without differential (06/05/2023 5:27 AM CLOD PULLER) WBC 8.8 3.8 - 9.9 K/cumm [facility] Hgb 7.8(L) 13.0 - 17.5 g/dL [facility] Hct 23.7(L) 38.9 - 50.3 % [facility] Plt 311 150 - 400 K/cumm [facility] MPV 8.9(L) 9.1 - 12.3 fL [facility] RBC 2.64(L) 4.30 - 5.80 M/cumm [facility] MCV 89.8 81.3 - 96.4 fL [facility] MCH 29.5 27.1 - 33.3 pg [facility] MCHC 32.9 32.3 - 35.7 g/dL [facility] RDW CV 13.1 11.1 - 14.9 % [facility] RDW SD 42.8 35.7 - 48.1 fL [facility] NRBC abs 0.00 0.00 - 0.01 K/cumm [facility] Blood 06/05/2023 5:27 AM CLOD PULLER 06/05/2023 5:38 AM CLOD PULLER us Alonzo Duncna MD LAB BLOOD ORDERABLES Fin al Result Performing Organization Address [facility]/ZIP Co de Phone Number [facility] Department [place] [address] * (ABNORMAL) Basic metabolic panel (06/05/2023 5:27 AM CLOD PULLER) Sodium 140 135 - 145 mmol/L [facility] Potassium, pl 4.1 3.3 - 4.9 mmol/L [facility] Chloride 104 97 - 110 mmol/L [facility] CO2 23 22 - 32 mmol/L [facility] Anion gap 13 2 - 15 mmol/L [facility] BUN 17 6 - 25 mg/dL [facility] Creatinine 1.78(H) 0.80 - 1.30 mg/dL [facility] Glucose 130 70 - 199 mg/dL [facility] Comment: Interpretive Data Fasting glucose >/= [...] 2022. Calcium 8.4(L) 8.5 - 10.3 mg/dL [facility] Blood 06/05/2023 5:27 AM CLOD PULLER 06/05/2023 5:38 AM CLOD PULLER us Alonzo Duncan MD LAB BLOOD ORDERABLES Fin al Result [facility] Department [place] [address] * (ABNORMAL) Triglycerides (06/05/2023 5:27 AM CLOD PULLER) Triglycerides 275(H) <=149 mg/dL [facility] Comment: Interpretive Data Ages < or [...] Data was last revised on 2018. Blood 06/05/2023 5:27 AM CLOD PULLER 06/05/2023 5:38 AM CLOD PULLER Alonzo Duncan MD LAB BLOOD ORDERABLES Fin al Result Performing Organization Address [facility] de Phone Number [facility] Department [place] [address] * Magnesium (06/04/2023 11:59 PM CLOD PULLER) Magnesium 2.4 1.4 - 2.5 mg/dL [facility] Blood 06/04/2023 11:5 9 PM CLOD PULLER 06/05/2023 12:25 AM CLOD PULLER Alonzo Duncan MD LAB BLOOD ORDERABLES Fin al Result Performing Organization Address [facility] de Phone Number [facility] [place] [address] * (ABNORMAL) Phosphorus (06/04/2023 11:59 PM CLOD PULLER) Phosphorus, pl 6.1(H) 2.3 - 4.5 mg/dL [facility] Blood 06/04/2023 11:5 9 PM CLOD PULLER 06/05/2023 12:25 AM CLOD PULLER us Alonzo Duncan MD LAB BLOOD ORDERABLES Fin al Result Performing Organization Address City/[facility] Co de Phone Number [facility] Department [place] [address] * (ABNORMAL) eGFR (06/04/2023 11:59 PM CLOD PULLER) eGFR 47(L) >=60 mL/min/1. 73 m2 [facility] Comment: Interpretive Data Reference Interval [...] interpretive data was last reviewed 2021. Blood 06/04/2023 11:5 9 PM CLOD PULLER 06/05/2023 12:25 AM CLOD PULLER us Alonzo Duncan MD LAB BLOOD ORDERABLES Fin al Result Performing Organization Address [facility] Co de Phone Number [facility] Department [place] [address] * Lactate, whole blood (06/04/2023 11:59 PM CLOD PULLER) [facility] Lactate, bld 1.1 0.7 - 2.0 mmol/L [facility] Blood 06/04/2023 11:5 9 PM CLOD PULLER 06/05/2023 12:13 AM CLOD PULLER Sherlyn Alicea MD LAB BLOOD ORDERABLES F inal Result Performing Organization Address [facility]/ZIP Co de Phone Number [facility] Department [place] [address] * (ABNORMAL) CBC without differential (06/04/2023 11:59 PM CLOD PULLER) [facility] WBC 9.3 3.8 - 9.9 K/cumm [facility] Hgb 7.7(L) 13.0 - 17.5 g/dL [facility] Hct 24.3(L) 38.9 - 50.3 % [facility] Plt 319 150 - 400 K/cumm [facility] MPV 9.1 9.1 - 12.3 fL [facility] RBC 2.69(L) 4.30 - 5.80 M/cumm [facility] MCV 90.3 81.3 - 96.4 fL [facility] MCH 28.6 27.1 - 33.3 pg [facility] MCHC 31.7(L) 32.3 - 35.7 g/dL [facility] RDW CV 13.0 11.1 - 14.9 % [facility] RDW SD 42.9 35.7 - 48.1 fL [facility] NRBC abs 0.00 0.00 - 0.01 K/cumm [facility] Blood 06/04/2023 11:5 9 PM CLOD PULLER 06/05/2023 12:25 AM CLOD PULLER Alonzo Duncan MD LAB BLOOD ORDERABLES Fin al Result Performing Organization Address City/[facility]/ZIP Co de Phone Number [facility] Department [place] [address] * (ABNORMAL) Basic metabolic panel (06/04/2023 11:59 PM CLOD PULLER) Sodium 139 135 - 145 mmol/L [facility] Potassium, pl 4.1 3.3 - 4.9 mmol/L [facility] Chloride 105 97 - 110 mmol/L [facility] CO2 23 22 - 32 mmol/L [facility] Anion gap 11 2 - 15 mmol/L [facility] BUN 17 6 - 25 mg/dL [facility] Creatinine 1.91(H) 0.80 - 1.30 mg/dL [facility] Glucose 112 70 - 199 mg/dL [facility] Comment: Interpretive Data Fasting glucose >/= [...] 2022. Calcium 8.4(L) 8.5 - 10.3 mg/dL [facility] Blood 06/04/2023 11:5 9 PM CLOD PULLER 06/05/2023 12:25 AM CLOD PULLER us Alonzo Duncan MD LAB BLOOD ORDERABLES Fin al Result [facility] Department [place] [address] * XR Chest 1 View - in PM (06/04/2023 8:53 PM CLOD PULLER) Anatomical Region Laterality Modality Body, Chest N/A Digital Radiogra phy 06/04/2023 10:0 2 PM CLOD PULLER Impressions 06/04/2023 10:02 PM CLOD PULLER Comparison is made to the prior examination from 05/13/2023. ??Aortic stent graft is unchanged in position. ??There is no pneumonic consolidation, effusion, or pneumothorax. ??The heart size is stable. Electronically signed by: Gen Baker M.D. Narrative 06/04/2023 10:02 PM CLOD PULLER EXAMINATION: 1 view chest radiograph Procedure Note Gen Baker MD - 06/04/2023 EXAMINATION: 1 view chest radiograph IMPRESSION: Comparison is made to the prior examination from 05/13/2023. Aortic stent graft is unchanged in position. There is no pneumonic consolidation, effusion, or pneumothorax. The heart size is stable. Electronically signed by: Gen Baker M.D. Alonzo Duncan MD IMG XR PROCEDURES Final Result * Critical Care (06/04/2023 6:46 PM CLOD PULLER) Narrative Mehul Brooks MD - 06/04/2023 6:46 PM CLOD PULLER Benny Isaacs NP ? 06/05/2023 ??5:07 AM Critical Care Performed by: Benny Isaacs NP Authorized by: Benny Isaacs NP ?? CRITICAL CARE: ??Team: ??83 CTICU ??Shift: ??PM ??Level of Billing: ??Critical Care ??My time spent with this patient was 95 minutes: Critical Provider Statement: I have seen and examined the patient on this day of service. I have reviewed and confirmed the history, physical exam, laboratory and radiologic data as documented in the signed ICU note. I have reviewed and discussed my treatment plan with the ICU team and other medical/health care consultant staff, making frequent assessments and decisions [...] time documenting in the medical record us Benny Isaacs SALESPERSON [facility]/BEDSIDE ORDERABLES F inal Result * (ABNORMAL) eGFR (06/04/2023 5:33 PM CLOD PULLER) Pathologist [facility] eGFR 54(L) >=60 mL/min/1. 73 m2 [facility] Comment: Interpretive Data Reference Interval [...] interpretive data was last reviewed 2021. Blood 06/04/2023 5:33 PM CLOD PULLER 06/04/2023 5:46 PM CLOD PULLER us Alonzo Duncan MD LAB BLOOD ORDERABLES Fin al Result [facility] Department [place] [address] * Lactate, whole blood (06/04/2023 5:33 PM CLOD PULLER) Pathologist [facility] Lactate, bld 1.8 0.7 - 2.0 mmol/L [facility] Blood 06/04/2023 5:33 PM CLOD PULLER 06/04/2023 5:40 PM CLOD PULLER Sherlyn Alicea MD LAB BLOOD ORDERABLES F inal Result Performing Organization Address [facility] Co de Phone Number [facility] Department [place] [address] * (ABNORMAL) CBC without differential (06/04/2023 5:33 PM CLOD PULLER) [facility] WBC 7.9 3.8 - 9.9 K/cumm [facility] Hgb 7.8(L) 13.0 - 17.5 g/dL [facility] Hct 24.6(L) 38.9 - 50.3 % [facility] Plt 308 150 - 400 K/cumm [facility] MPV 8.7(L) 9.1 - 12.3 fL [facility] RBC 2.71(L) 4.30 - 5.80 M/cumm [facility] MCV 90.8 81.3 - 96.4 fL [facility] MCH 28.8 27.1 - 33.3 pg [facility] MCHC 31.7(L) 32.3 - 35.7 g/dL [facility] RDW CV 12.9 11.1 - 14.9 % [facility] RDW SD 42.8 35.7 - 48.1 fL [facility] NRBC abs 0.00 0.00 - 0.01 K/cumm [facility] Blood 06/04/2023 5:33 PM CLOD PULLER 06/04/2023 5:47 PM CLOD PULLER Alonzo Duncan MD LAB BLOOD ORDERABLES Fin al Result Performing Organization Address City/[facility]/ZIP Co de Phone Number [facility] Department [place] [address] * (ABNORMAL) Basic metabolic panel (06/04/2023 5:33 PM CLOD PULLER) Sodium 139 135 - 145 mmol/L [facility] Potassium, pl 4.4 3.3 - 4.9 mmol/L [facility] Chloride 106 97 - 110 mmol/L [facility] CO2 22 22 - 32 mmol/L [facility] Anion gap 11 2 - 15 mmol/L [facility] BUN 17 6 - 25 mg/dL [facility] Creatinine 1.71(H) 0.80 - 1.30 mg/dL [facility] Glucose 105 70 - 199 mg/dL [facility] Comment: Interpretive Data Fasting glucose >/= [...] 2022. Calcium 8.7 8.5 - 10.3 mg/dL [facility] Blood 06/04/2023 5:33 PM CLOD PULLER 06/04/2023 5:46 PM CLOD PULLER us Alonzo Duncan MD LAB BLOOD ORDERABLES Fin al Result [facility] Department [place] [address] * US Doppler Renal Artery LTD (06/04/2023 12:27 PM CLOD PULLER) Anatomical Region Laterality Modality Vascular N/A Ultrasound 06/04/2023 12:3 8 PM CLOD PULLER Impressions 06/04/2023 12:52 PM CLOD PULLER Limited examination due to portable technique, within the limitation, pulsatile arterial waveforms in the bilateral renal arteries without evidence of renal artery occlusion. Dictated by: Quincy Painting M.D. The radiology attending physician has personally reviewed this study, and had reviewed and/or edited this written report and agrees with it. Electronically signed by: Otoniel Mccain M.D. Narrative 06/04/2023 12:52 PM CLOD PULLER EXAMINATION: LIMITED RENAL DOPPLER HISTORY: ??Aortic dissection COMPARISON: ??CT angiogram dated 06/03/2019 port FINDINGS: ?? Mildly limited examination due to portable technique and limited patient positioning. Color Doppler and spectral analysis were used to evaluate the renal vasculature. No focal flow abnormalities were seen in the renal arteries on color Doppler. ??The peak systolic velocity at the right renal origin was 70 cm/s and 52 cm/s in the aorta. ??The left renal artery origin could not be identified, however the mid left renal artery peak velocity was 40 cm/s. ??Both renal arteries and renal parenchyma demonstrated pulsatile, arterial waveforms. ?? Procedure Note Otoniel Mccain MD PhD - 06/04/2023 EXAMINATION: LIMITED RENAL DOPPLER HISTORY: Aortic dissection COMPARISON: CT angiogram dated 06/03/2019 port FINDINGS: Mildly limited examination due to portable technique and limited patient positioning. Color Doppler and spectral analysis were used to evaluate the renal vasculature. No focal flow abnormalities were seen in the renal arteries on color Doppler. The peak systolic velocity at the right renal origin was 70 cm/s and 52 cm/s in the aorta. The left renal artery origin could not be identified, however the mid left renal artery peak velocity was 40 cm/s. Both renal arteries and renal parenchyma demonstrated pulsatile, arterial waveforms. IMPRESSION: Limited examination due to portable technique, within the limitation, pulsatile arterial waveforms in the bilateral renal arteries without evidence of renal artery occlusion. Dictated by: Quincy Painting M.D. The radiology attending physician has personally reviewed this study, and had reviewed and/or edited this written report and agrees with it. Electronically signed by: Otoniel Mccain M.D. Alonzo Duncan MD [facility] [place] PROCEDURES Final Result * eGFR (06/04/2023 11:37 AM CLOD PULLER) [facility] eGFR 61 >=60 mL/min/1. 73 m2 [facility] Comment: Interpretive Data Reference Interval Normal [...] interpretive data was last reviewed 2021. Blood 06/04/2023 11:3 7 AM CLOD PULLER 06/04/2023 11:56 AM CLOD PULLER us Alonzo Duncan MD LAB BLOOD ORDERABLES Fin al Result Performing Organization Address City/State/[facility] Co de Phone Number [facility] Department [place] [address] * (ABNORMAL) Protime-INR (06/04/2023 11:37 AM CLOD PULLER) PT 15.6(H) 10.3 - 13.7 sec [facility] INR 1.37(H) 0.90 - 1.20 [facility] Comment: Interpretive data Oral anticoagulant therapeutic ranges: Venous thromboembolism prophylaxis or treatment: 2.0-3.0 CARDIOLOGY Standard range: 2.0-3.0 High-intensity range: 2.5-3.5 Refer to indication-specific guidelines for appropriate target ranges for prosthetic heart valve replacement. Current interpretive data was last revised on 2019. Blood 06/04/2023 11:3 7 AM CLOD PULLER 06/04/2023 11:45 AM CLOD PULLER Sheila Winters NP LAB BLOOD ORDERABLES F inal Result Performing Organization Address City/[facility]/ZIP Co de Phone Number [facility] [place] [address] * Lactate, whole blood (06/04/2023 11:37 AM CLOD PULLER) [facility] Lactate, bld 1.1 0.7 - 2.0 mmol/L [facility] Blood 06/04/2023 11:3 7 AM CLOD PULLER 06/04/2023 11:42 AM CLOD PULLER Sherlyn Alicea MD LAB BLOOD ORDERABLES F inal Result Performing Organization Address [facility] Co de Phone Number [facility] [place] [address] * (ABNORMAL) CBC without differential (06/04/2023 11:37 AM CLOD PULLER) [facility] WBC 7.6 3.8 - 9.9 K/cumm [facility] Hgb 8.2(L) 13.0 - 17.5 g/dL [facility] Hct 25.8(L) 38.9 - 50.3 % [facility] Plt 336 150 - 400 K/cumm [facility] MPV 8.7(L) 9.1 - 12.3 fL [facility] RBC 2.86(L) 4.30 - 5.80 M/cumm [facility] MCV 90.2 81.3 - 96.4 fL [facility] MCH 28.7 27.1 - 33.3 pg [facility] MCHC 31.8(L) 32.3 - 35.7 g/dL [facility] RDW CV 13.0 11.1 - 14.9 % [facility] RDW SD 43.1 35.7 - 48.1 fL [facility] NRBC abs 0.00 0.00 - 0.01 K/cumm [facility] Blood 06/04/2023 11:3 7 AM CLOD PULLER 06/04/2023 11:56 AM CLOD PULLER Alonzo Duncan MD LAB BLOOD ORDERABLES Fin al Result Performing Organization Address [facility] Co de Phone Number [facility] Department [place] [address] * (ABNORMAL) Basic metabolic panel (06/04/2023 11:37 AM CLOD PULLER) Sodium 140 135 - 145 mmol/L [facility] Potassium, pl 4.5 3.3 - 4.9 mmol/L [facility] Chloride 105 97 - 110 mmol/L [facility] CO2 23 22 - 32 mmol/L [facility] Anion gap 12 2 - 15 mmol/L [facility] BUN 17 6 - 25 mg/dL [facility] Creatinine 1.56(H) 0.80 - 1.30 mg/dL [facility] Glucose 111 70 - 199 mg/dL [facility] Comment: Interpretive Data Fasting glucose >/= [...] interpretive data was last revised 2022. Calcium 8.8 8.5 - 10.3 mg/dL [facility] Blood 06/04/2023 11:3 7 AM CLOD PULLER 06/04/2023 11:56 AM CLOD PULLER Alonzo Duncan MD LAB BLOOD ORDERABLES Fin al Result [facility] Department [place] [address] * (ABNORMAL) Basic metabolic panel (06/04/2023 6:09 AM CLOD PULLER) Sodium 140 135 - 145 mmol/L [facility] Potassium, pl 4.5 3.3 - 4.9 mmol/L [facility] Chloride 109 97 - 110 mmol/L [facility] CO2 22 22 - 32 mmol/L [facility] Anion gap 9 2 - 15 mmol/L [facility] BUN 16 6 - 25 mg/dL [facility] Creatinine 1.70(H) 0.80 - 1.30 mg/dL [facility] Glucose 126 70 - 199 mg/dL [facility] Comment: Interpretive Data Fasting glucose >/= [...] 2022. Calcium 8.5 8.5 - 10.3 mg/dL [facility] Blood 06/04/2023 6:09 AM CLOD PULLER 06/04/2023 6:43 AM CLOD PULLER us Alonzo Duncan MD LAB BLOOD ORDERABLES Fin al Result Performing Organization Address City/[facility] Co de Phone Number [facility] Department [place] [address] * (ABNORMAL) eGFR (06/04/2023 6:09 AM CLOD PULLER) eGFR 55(L) >=60 mL/min/1. 73 m2 [facility] Comment: Interpretive Data Reference Interval Normal [...] interpretive data was last reviewed 2021. Blood 06/04/2023 6:09 AM CLOD PULLER 06/04/2023 6:45 AM CLOD PULLER us Alonzo Duncan MD LAB BLOOD ORDERABLES Fin al Result Performing Organization Address City/[facility]/ZIP Co de Phone Number [facility] Department [place] [address] * Lactate, whole blood (06/04/2023 6:09 AM CLOD PULLER) Lactate, bld 1.7 0.7 - 2.0 mmol/L [facility] Blood 06/04/2023 6:09 AM CLOD PULLER 06/04/2023 6:17 AM CLOD PULLER us Sherlyn Alicea MD LAB BLOOD ORDERABLES F inal Result [facility] Department [place] [address] * (ABNORMAL) CBC without differential (06/04/2023 6:09 AM CLOD PULLER) Pathologist [facility] WBC 8.8 3.8 - 9.9 K/cumm [facility] Hgb 8.2(L) 13.0 - 17.5 g/dL [facility] Hct 25.8(L) 38.9 - 50.3 % [facility] Plt 347 150 - 400 K/cumm [facility] MPV 8.9(L) 9.1 - 12.3 fL [facility] RBC 2.89(L) 4.30 - 5.80 M/cumm [facility] MCV 89.3 81.3 - 96.4 fL [facility] MCH 28.4 27.1 - 33.3 pg [facility] MCHC 31.8(L) 32.3 - 35.7 g/dL [facility] RDW CV 13.0 11.1 - 14.9 % [facility] RDW SD 42.8 35.7 - 48.1 fL [facility] NRBC abs 0.00 0.00 - 0.01 K/cumm [facility] Blood 06/04/2023 6:09 AM CLOD PULLER 06/04/2023 6:37 AM CLOD PULLER us Alonzo Duncan MD LAB BLOOD ORDERABLES Fin al Result [facility] Department [place] [address] * (ABNORMAL) Phosphorus (06/04/2023 6:09 AM CLOD PULLER) Pathologist [facility] Phosphorus, pl 4.6(H) 2.3 - 4.5 mg/dL [facility] Blood 06/04/2023 6:09 AM CLOD PULLER 06/04/2023 6:43 AM CLOD PULLER Alonzo Duncan MD LAB BLOOD ORDERABLES Fin al Result Performing Organization Address City/[facility] Co de Phone Number [facility] [place] [address] * Magnesium (06/04/2023 6:09 AM CLOD PULLER) Magnesium 2.5 1.4 - 2.5 mg/dL [facility] Blood 06/04/2023 6:09 AM CLOD PULLER 06/04/2023 6:43 AM CLOD PULLER Result [facility] Alonzo Duncan MD LAB BLOOD ORDERABLES Fin al Result Performing Organization Address [facility] de Phone Number [facility] [place] [address] * (ABNORMAL) Blood gas, arterial (06/04/2023 2:33 AM CLOD PULLER) Pathologist [facility] pH, Art 7.35 7.35 - 7.45 [facility] PCO2, Arterial 44 35 - 45 mmHg [facility] PO2, Arterial 73(L) 83 - 108 mmHg [facility] HCO3 Art (Calculated) 25 20 - 30 mmol/L [facility] BE, art -1 mmol/L [facility] Comment: Interpretive Data No Reference Range Established Current Interpretive Data was last revised on 2017 O2 Sat Art (Measured) 94 90 - 95 % [facility] Blood 06/04/2023 2:33 AM CLOD PULLER 06/04/2023 2:39 AM CLOD PULLER Alonzo Duncan MD LAB BLOOD ORDERABLES Fin al Result Performing Organization Address [facility] Co de Phone Number [facility] [place] [address] * aPTT (06/04/2023 1:54 AM CLOD PULLER) aPTT 35 28 - 38 sec [facility] Comment: Interpretive Data Heparin therapeutic range: 66.0 - 100.0 seconds. Range based on correlation with therapeutic heparin activity range of 0.3 - 0.7 Units/mL. Current interpretive data was last revised on 2023. Blood 06/04/2023 1:54 AM CLOD PULLER 06/04/2023 2:09 AM CLOD PULLER Alonzo Duncan MD LAB BLOOD ORDERABLES Fin al Result Performing Organization Address [facility] de Phone Number [facility] [place] [address] * (ABNORMAL) Protime-INR (06/04/2023 1:54 AM CLOD PULLER) PT 15.8(H) 10.3 - 13.7 sec [facility] INR 1.39(H) 0.90 - 1.20 [facility] Comment: Interpretive data Oral anticoagulant therapeutic ranges: Venous thromboembolism prophylaxis or treatment: 2.0-3.0 CARDIOLOGY Standard range: 2.0-3.0 High-intensity range: 2.5-3.5 Refer to indication-specific guidelines for appropriate target ranges for prosthetic heart valve replacement. Current interpretive data was last revised on 2019. Blood 06/04/2023 1:54 AM CLOD PULLER 06/04/2023 2:09 AM CLOD PULLER Alonzo Duncan MD LAB BLOOD ORDERABLES Fin al Result Performing Organization Address [facility] de Phone Number [facility] Department [place] [address] * Type and screen (06/04/2023 1:54 AM CLOD PULLER) Ellen, indirect Negative ABO Rh A Positive [facility] Blood 06/04/2023 1:54 AM CLOD PULLER 06/04/2023 2:06 AM CLOD PULLER Narrative [facility] - 06/04/2023 3:04 AM CLOD PULLER Has the patient had Daratumumab or Isatuximab in the past 6 months?->Unknown us Alonzo Duncan MD LAB BLOOD BANK TEST SHAUNA LOPEZ Final Result [facility] Department [place] [address] * VA ARTL CATHJ/CANNULJ MNTR/TRANSFUSION SPX PRQ (06/04/2023 1:26 AM CLOD PULLER) Narrative Mehul Brooks MD - 06/04/2023 1:26 AM CLOD PULLER Sherlyn Alicea MD ? 06/04/2023 ??1:31 AM Arterial Line Insertion Date/Time: 06/04/2023 1:26 AM Performed by: Michael Hamm MD Authorized by: Mehul Brooks MD ?? [place] Protocol: RN Notified of Procedure: yes ?? 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 Indications: multiple ABGs and hemodynamic monitoring ?? Location: ??Right radial Anesthesia: ??Local infiltration Patient skin preparation: chlorhexidine ?? Patient preparation: ??Gloves, mask, handwashing and towels Catheter gauge: ??20 Catheter length (cm): ??4.5 Single percutaneous needle puncture: Yes ?? Seldinger technique used: No ?? Number of attempts: ??4 Placement confirmed with arterial waveform: Yes ?? Post-procedure: ??Line sutured and dressing applied Post-procedure CMS: ??Unchanged Patient tolerance: ??Patient tolerated the procedure well with no immediate complications Complications: vasospasm ?? Post Procedure Debrief: All guidewires, needles, sponges or other items are accounted for: yes ?? Any special post procedure monitoring, testing or other considerations: yes (enter/request order) ?? Mehul Brooks MD IV THERAPY ORDERABLES Final Res ult * Lactate, whole blood (06/04/2023 1:00 AM CLOD PULLER) Lactate, bld 1.5 0.7 - 2.0 mmol/L [facility] Blood 06/04/2023 1:00 AM CLOD PULLER 06/04/2023 1:04 AM CLOD PULLER us Sherlyn Alicea MD LAB BLOOD ORDERABLES F inal Result [facility] Department [place] [address] * eGFR (06/04/2023 12:42 AM CLOD PULLER) eGFR 89 >=60 mL/min/1. 73 m2 [facility] Comment: Interpretive Data Reference Interval Normal [...] interpretive data was last reviewed 2021. Blood 06/04/2023 12:4 2 AM CLOD PULLER 06/04/2023 12:49 AM CLOD PULLER us Alonzo Duncan MD LAB BLOOD ORDERABLES Fin al Result Performing Organization Address [facility] de Phone Number [facility] Department [place] [address] * (ABNORMAL) CBC without differential (06/04/2023 12:42 AM CLOD PULLER) Pathologist [facility] WBC 8.9 3.8 - 9.9 K/cumm [facility] Hgb 9.2(L) 13.0 - 17.5 g/dL [facility] Hct 28.6(L) 38.9 - 50.3 % [facility] Plt 369 150 - 400 K/cumm [facility] MPV 9.0(L) 9.1 - 12.3 fL [facility] RBC 3.22(L) 4.30 - 5.80 M/cumm [facility] MCV 88.8 81.3 - 96.4 fL [facility] MCH 28.6 27.1 - 33.3 pg [facility] MCHC 32.2(L) 32.3 - 35.7 g/dL [facility] RDW CV 12.9 11.1 - 14.9 % [facility] RDW SD 42.2 35.7 - 48.1 fL [facility] NRBC abs 0.00 0.00 - 0.01 K/cumm [facility] Blood 06/04/2023 12:4 2 AM CLOD PULLER 06/04/2023 1:09 AM CLOD PULLER Alonzo Duncan MD LAB BLOOD ORDERABLES Fin al Result Performing Organization Address [facility] Co de Phone Number [facility] Department [place] [address] * Calcium, ionized (06/04/2023 12:42 AM CLOD PULLER) Pathologist [facility] Calcium, Ionized 4.63 4.50 - 5.10 mg/dL [facility] Blood 06/04/2023 12:4 2 AM CLOD PULLER 06/04/2023 12:49 AM CLOD PULLER Alonzo Duncan MD LAB BLOOD ORDERABLES Fin al Result Performing Organization Address [facility] [place] [address] * Magnesium (06/04/2023 12:42 AM CLOD PULLER) Pathologist [facility] Magnesium 1.8 1.4 - 2.5 mg/dL [facility] Blood 06/04/2023 12:4 2 AM CLOD PULLER 06/04/2023 12:49 AM CLOD PULLER Alonzo Duncan MD LAB BLOOD ORDERABLES Fin al Result Performing Organization Address [facility] de Phone Number [facility] [place] [address] * Phosphorus (06/04/2023 12:42 AM CLOD PULLER) Pathologist [facility] Phosphorus, pl 4.0 2.3 - 4.5 mg/dL [facility] Blood 06/04/2023 12:4 2 AM CLOD PULLER 06/04/2023 12:49 AM CLOD PULLER Alonzo Duncan MD LAB BLOOD ORDERABLES Fin al Result Performing Organization Address [facility] de Phone Number [facility] [place] [address] * Basic metabolic panel (06/04/2023 12:42 AM CLOD PULLER) Sodium 141 135 - 145 mmol/L [facility] Potassium, pl 3.6 3.3 - 4.9 mmol/L [facility] Chloride 106 97 - 110 mmol/L [facility] CO2 24 22 - 32 mmol/L [facility] Anion gap 11 2 - 15 mmol/L [facility] BUN 13 6 - 25 mg/dL [facility] Creatinine 1.13 0.80 - 1.30 mg/dL [facility] Glucose 103 70 - 199 mg/dL [facility] Comment: Interpretive Data Fasting glucose >/= [...] 2022. Calcium 8.9 8.5 - 10.3 mg/dL [facility] Blood 06/04/2023 12:4 2 AM CLOD PULLER 06/04/2023 12:49 AM CLOD PULLER us Alonzo Duncan MD LAB BLOOD ORDERABLES Fin al Result [facility] Department [place] [address] * [facility] CR[facility] ILL/INJURED PATIENT INIT 30-74 MIN (06/03/2023 10:14 PM CLOD PULLER) Narrative Tressa Sorensen MD - 06/03/2023 10:14 PM CLOD PULLER Tressa Sorensen MD ? 06/03/2023 10:15 PM Critical Care Performed by: Tressa Sorensen MD Authorized by: Tressa Sorensen MD ?? Critical care provider statement: As reflected in the history, physical exam, orders, notes, and/or MDM, I was personally present while the patient was critically ill and provided critical care services for 30 minutes, excluding time involved in separately billable procedures. ??Critical care was necessary to treat or prevent imminent or life-threatening deterioration of the following condition(s): ?? hypertensive crisis ?? Hx aortic dissection ?? severe hematologic condition ??Critical care was time spent by me providing the following: ? continuous telemetry, continuous pulse oximetry, interpretation of bedside monitors, imaging, and arterial/venous lab draws, serial bedside patient exams and resuscitation with fluids ?? frequent neurologic exams ?? initiation and active titration of [...] spent time documenting in the medical record. I admitted this patient to an Intensive Care unit (ICU) and discussed management with the admitting team. I admitted this patient to a continuous cardiac monitored bed. us Tressa Sorensen MD IN CLINIC/BEDSIDE ORDERABLES Final Result * (ABNORMAL) Urinalysis, microscopic only (06/03/2023 10:07 PM CLOD PULLER) WBC, ur 0-5 0 - 5 /HPF [facility] RBC, ur 0-2 0 - 2 /HPF [facility] Epithelial cells, squamous, ur 1-5 0 - 5 /HPF [facility] Bacteria, ur 1+(A) [facility] Mucous, ur Present(A) [facility] Urine 06/03/2023 10:0 7 PM CLOD PULLER 06/03/2023 10:14 PM CLOD PULLER us Tressa Sorensen MD LAB URINE ORDERABLES Final Re sult Performing Organization Address [facility] Co de Phone Number [facility] [place] [address] * Lactate (06/03/2023 10:07 PM CLOD PULLER) Lactate 1.0 0.7 - 2.0 mmol/L [facility] Blood 06/03/2023 10:0 7 PM CLOD PULLER 06/03/2023 10:22 PM CLOD PULLER us Tressa Sornesen MD LAB BLOOD ORDERABLES Final Re sult Performing Organization Address [facility]/ZIP Co de Phone Number [facility] Department [place] [address] * Troponin I high-sensitivity 4-hour (06/03/2023 10:07 PM CLOD PULLER) Trop I hs 10 <=35 ng/L [facility] Comment: Interpretive Data For further RUSTnI resources including the diagnostic algorithm and an aid in interpretation, copy and paste this link: https://bjhlab.testcatalog.org/show/hsTrop-1 Current Interpretive Data last revised 2019. Trop I hs delta 2 ng/L [facility] Trop I hs interp Insignificant [facility] Blood 06/03/2023 10:0 7 PM CLOD PULLER 06/03/2023 10:22 PM CLOD PULLER us Deandre Niño MD LAB BLOOD ORDERABLES Final Resul t [facility] Department [place] [address] * (ABNORMAL) Urinalysis reflex to microscopic (06/03/2023 10:07 PM CLOD PULLER) Color, ur Straw Yellow [facility] Clarity, ur Clear Clear [facility] Specific gravity, ur >1.042(H) 1.003 - 1.030 [facility] pH, urine 6.5 [facility] Comment: Interpretive Data ? Urine pH is affected by diet, medications, systemic acid-base disturbances, and renal tubular function. ??pH may affect urinary stone formation. ??For example, urine pH below 6.0 may help reduce the tendency for calcium phosphate stones and pH greater than 6.0 may reduce the tendency for uric acid stone formation. Source: [employer] Current Interpretive Data was last revised on 2017 Protein, ur ql 1+(A) Negative [facility] Glucose, ur ql Trace(A) Negative [facility] Ketones, ur Negative Negative [facility] Bilirubin, ur Negative Negative [facility] Blood, ur Trace(A) Negative [facility] Urobilinogen, ur <2.0 <2.0 mg/dL [facility] Nitrite, ur Negative Negative [facility] Leukocyte esterase, ur Negative Negative [facility] UA reflex comment Reflex to microscopic UA will be performed. [facility] Urine 06/03/2023 10:0 7 PM CLOD PULLER 06/03/2023 10:14 PM CLOD PULLER us Tressa Sorensen MD LAB URINE ORDERABLES Final Re sult Performing Organization Address [facility] Co de Phone Number [facility] [place] [address] * Troponin I high-sensitivity 2-hour (06/03/2023 8:21 PM CLOD PULLER) Trop I hs 11 <=35 ng/L [facility] Comment: Interpretive Data For further hscTnI resources including the diagnostic algorithm and an aid in interpretation, copy and paste this link: https://bjhlab.testcatalog.org/show/hsTrop-1 Current Interpretive Data last revised 2019. Trop I hs delta 3 ng/L [facility] Trop I hs interp Insignificant [facility] Blood 06/03/2023 8:21 PM CLOD PULLER 06/03/2023 8:37 PM CLOD PULLER us Deandre Niño MD LAB BLOOD ORDERABLES Final Resul t Performing Organization Address [facility] de Phone Number [facility] [place] [address] * CTA Chest Abdomen Pelvis (06/03/2023 7:19 PM CLOD PULLER) Anatomical Region Laterality Modality Body N/A Computed Tomogra phy 06/03/2023 7:59 PM CLOD PULLER Impressions 06/03/2023 9:13 PM CLOD PULLER 1. ??Changes of type B aortic dissection status post thoracic endovascular aortic repair and stenting of the left subclavian artery, with unchanged stenosis of the left subclavian artery stent. Continued increase in size of false lumen and decreased thrombus within the false lumen at the level of the descending thoracic aorta just distal to the stent graft. 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 2. ??Unchanged nonobstructive bilateral nephrolithiasis, otherwise no acute findings in the chest abdomen or pelvis to explain patient's abdominal pain. Dictated by: Julieth Ballard MD ADDENDUM - This addendum is being placed on the report for a time dependent finding on a patient who is still in the emergency room (3B). ??After review the attending physician, the following additional comments are made: Just inferior to the distal aspect of the stent, there has been erosion of the intimomedial flap with a short segment of aorta that has no demonstrable flap (and and thus the left aspect of its wall is from the previous falls lumen) measuring 5 cm in length. ??Just inferior to this, the true lumen can be seen medially, but is very small. ??There is also some remodeled thrombus within the aorta just distal to the stent, that was previously in the false lumen. ??The aorta just distal to the stent has also dilated and is somewhat lobular along the portion that was previously false lumen, now measuring 4.3 x 4.2 cm versus 3.8 x 3.8 cm on the prior. ??Of note, the celiac axis arises from the false lumen while the superior mesenteric artery is primarily arising from the true lumen. ??Both renals arise from the true lumen although the flap is very close to the left renal origin. ??The inferior mesenteric artery arises from the true lumen. Thus, the patient's pain may be secondary to the collapse of the true lumen restricting blood flow to its branch vessels, potential emboli from the irregular thrombus just below the stent that now communicates with the major path of blood flow, or perhaps from the dilatation of the aorta below the stent. ??Of note, although the aorta is lobular, there is no surrounding stranding or blood. These findings were communicated to Dr. Samuel and Dr. Manzano by Dr. Baker immediately upon identification of the findings at readout at 9 pm on 06/03/23. ?? The radiology attending physician has personally reviewed this study, and had reviewed and/or edited this written report and agrees with it. Electronically signed by: Telly Baker M.D. Narrative 06/03/2023 9:13 PM CLOD PULLER EXAMINATION: CT ANGIOGRAPHY OF THE CHEST, ABDOMEN AND PELVIS WITH AND WITHOUT CONTRAST HISTORY: 33-year-old status post endovascular stent graft 05/02/2023. Now with bilateral flank pain radiating to abdomen. ??Also with nausea TECHNIQUE: ??Computed tomographic images of the chest, abdomen and pelvis were acquired without and intravenous contrast using an angiographic protocol optimized for aortic dissection (aorta). ??The contrast enhanced transaxial images were obtained following the intravenous administration of 92 ml of nonionic contrast. Multiplanar reformatted images and three-dimensional images of the aorta and associated vasculature were obtained on the 3-D workstation and sent to the PACS archival system. ?? COMPARISON: 05/16/2023 CT FINDINGS: ?? Chest: Postoperative changes of type B aortic dissection status post thoracic endovascular aortic repair with left subclavian stent. ??The proximal attachment site just proximal to the origin of the left common carotid artery and the distal attachment site the descending thoracic aorta the level of the left atrium. The stent graft is patent. ??There is continued stenosis at the origin of the left subclavian stent graft. ??This is similar to prior. ??No evidence of stent migration or endoleak. ??The dissection flap extends inferiorly to the level of the left common iliac artery, unchanged. ?? There is increased opacification of the false lumen of the false lumen which is likely due to fenestration at the level of the the level of the distal esophagus and also at the renal arteries. ??There is slight enlargement of the aorta just distal to the stent graft. . There is decreasing thrombus within the false lumen. ??The false lumen size has increased in size measuring ??Overall aorta diameter is unchanged in size. At the level of the diaphragmatic hiatus: 40 x 30 mm, unchanged when remeasured on similar axes. At the proximal ascending thoracic aorta: 34 x 35 mm, unchanged when remeasured. At the descending thoracic aorta at the level just distal to the stent graft: 38 x 35 mm, previously 33 x 33 mm The false lumen has increased in size now measuring 39 x 32 mm, previously 39 x 22 mm. The celiac artery arise from the false lumen. ??The superior mesenteric artery, both renal arteries, and inferior mesenteric artery arise from the true lumen. ??The left renal artery immediately arises from the true lumen. ??The pelvic vasculature is patent. ?? Nonvascular findings: Imaged thyroid is normal. ??No thoracic adenopathy. ??Normal heart size. ??No pericardial effusion. The lungs are clear. ??No pleural effusion or consolidation. ??No pneumothorax. ??Patent central airways. Hemangioma within hepatic segment 4, otherwise normal. ??Normal gallbladder, spleen, pancreas, both adrenal glands. ??Multiple punctate nonobstructing stones in both kidneys, unchanged. ??No hydronephrosis. Urinary bladder is fluid-filled. ??Prostate is present. ??No free fluid or free air. ??Mild colonic diverticulosis. ??Normal appendix. ??No evidence of bowel wall thickening or obstruction. ??No abdominal or pelvic lymphadenopathy. ??Trace of cutaneous edema along the posterior neck soft tissues. ??No suspicious osseous lesion. Procedure Note Telly Baker MD - 06/03/2023 EXAMINATION: CT ANGIOGRAPHY OF THE CHEST, ABDOMEN AND PELVIS WITH AND WITHOUT CONTRAST HISTORY: 33-year-old status post endovascular stent graft 05/02/2023. Now with bilateral flank pain radiating to abdomen. Also with nausea TECHNIQUE: Computed tomographic images of the chest, abdomen and pelvis were acquired without and intravenous contrast using an angiographic protocol optimized for aortic dissection (aorta). The contrast enhanced transaxial images were obtained following the intravenous administration of 92 ml of nonionic contrast. Multiplanar reformatted images and three-dimensional images of the aorta and associated vasculature were obtained on the 3-D workstation and sent to the PACS archival system. COMPARISON: 05/16/2023 CT FINDINGS: Chest: Postoperative changes of type B aortic dissection status post thoracic endovascular aortic repair with left subclavian stent. The proximal attachment site just proximal to the origin of the left common carotid artery and the distal attachment site the descending thoracic aorta the level of the left atrium. The stent graft is patent. There is continued stenosis at the origin of the left subclavian stent graft. This is similar to prior. No evidence of stent migration or endoleak. The dissection flap extends inferiorly to the level of the left common iliac artery, unchanged. There is increased opacification of the false lumen of the false lumen which is likely due to fenestration at the level of the the level of the distal esophagus and also at the renal arteries. There is slight enlargement of the aorta just distal to the stent graft. . There is decreasing thrombus within the false lumen. The false lumen size has increased in size measuring Overall aorta diameter is unchanged in size. At the level of the diaphragmatic hiatus: 40 x 30 mm, unchanged when remeasured on similar axes. At the proximal ascending thoracic aorta: 34 x 35 mm, unchanged when remeasured. At the descending thoracic aorta at the level just distal to the stent graft: 38 x 35 mm, previously 33 x 33 mm The false lumen has increased in size now measuring 39 x 32 mm, previously 39 x 22 mm. The celiac artery arise from the false lumen. The superior mesenteric artery, both renal arteries, and inferior mesenteric artery arise from the true lumen. The left renal artery immediately arises from the true lumen. The pelvic vasculature is patent. Nonvascular findings: Imaged thyroid is normal. No thoracic adenopathy. Normal heart size. No pericardial effusion. The lungs are clear. No pleural effusion or consolidation. No pneumothorax. Patent central airways. Hemangioma within hepatic segment 4, otherwise normal. Normal gallbladder, spleen, pancreas, both adrenal glands. Multiple punctate nonobstructing stones in both kidneys, unchanged. No hydronephrosis. Urinary bladder is fluid-filled. Prostate is present. No free fluid or free air. Mild colonic diverticulosis. Normal appendix. No evidence of bowel wall thickening or obstruction. No abdominal or pelvic lymphadenopathy. Trace of cutaneous edema along the posterior neck soft tissues. No suspicious osseous lesion. IMPRESSION: 1. Changes of type B aortic dissection status post thoracic endovascular aortic repair and stenting of the left subclavian artery, with unchanged stenosis of the left subclavian artery stent. Continued increase in size of false lumen and decreased thrombus within the false lumen at the level of the descending thoracic aorta just distal to the stent graft. Increasing contrast opacification of the false lumen likely from fenestration at the level of the diaphragmatic hiatus and renal arteries. 2. Unchanged nonobstructive bilateral nephrolithiasis, otherwise no acute findings in the chest abdomen or pelvis to explain patient's abdominal pain. Dictated by: Julieth Ballard MD ADDENDUM - This addendum is being placed on the report for a time dependent finding on a patient who is still in the emergency room (3B). After review the attending physician, the following additional comments are made: Just inferior to the distal aspect of the stent, there has been erosion of the intimomedial flap with a short segment of aorta that has no demonstrable flap (and and thus the left aspect of its wall is from the previous falls lumen) measuring 5 cm in length. Just inferior to this, the true lumen can be seen medially, but is very small. There is also some remodeled thrombus within the aorta just distal to the stent, that was previously in the false lumen. The aorta just distal to the stent has also dilated and is somewhat lobular along the portion that was previously false lumen, now measuring 4.3 x 4.2 cm versus 3.8 x 3.8 cm on the prior. Of note, the celiac axis arises from the false lumen while the superior mesenteric artery is primarily arising from the true lumen. Both renals arise from the true lumen although the flap is very close to the left renal origin. The inferior mesenteric artery arises from the true lumen. Thus, the patient's pain may be secondary to the collapse of the true lumen restricting blood flow to its branch vessels, potential emboli from the irregular thrombus just below the stent that now communicates with the major path of blood flow, or perhaps from the dilatation of the aorta below the stent. Of note, although the aorta is lobular, there is no surrounding stranding or blood. These findings were communicated to Dr. Samuel and Dr. Manzano by Dr. Baker immediately upon identification of the findings at readout at 9 pm on 06/03/23. The radiology attending physician has personally reviewed this study, and had reviewed and/or edited this written report and agrees with it. Electronically signed by: Telly Baker M.D. Michael Cortes MD [facility] [place]ED[place] Final Resul t * POCUS Retroperitoneal (AAA or Renal) (06/03/2023 6:53 PM CLOD PULLER) Anatomical Region Laterality Modality Other 06/03/2023 6:39 PM CLOD PULLER Narrative 06/06/2023 9:46 AM CLOD PULLER Performed by: Nakita Holguin Aorta v3 : ?Exam Information: ?Exam type: ??Diagnostic ?Indication(s) for Exam: ?Abdominal pain ?Other Indication(s): ??hx abdominal aortic dissections w/recent surgery ?Findings: ?Was a longitudinal view obtained?: ??No ?Distal aortic diameter (cm):: ??6.09 ?Interpretation: ?Aneurysm: ??Present ?If present: ??Infrarenal Electronically signed by Nakita Holguin on Tuesday, June 03, 2023 at 7:07 PM I have reviewed the images & the resident's interpretation. I agree with the findings. Electronically signed by TRESSA SORENSEN on Tuesday, June 06, 2023 at 9:46 AM I have reviewed the images & the resident's interpretation. I agree with the findings. Renal/Bladder: ?Exam Information: ?Exam type: ??Diagnostic Procedure Note Tressa Sorensen MD - 06/06/2023 Performed by: Nakita Holguin Aorta v3 : Exam Information: Exam type: Diagnostic Indication(s) for Exam: Abdominal pain Other Indication(s): hx abdominal aortic dissections w/recentsurgery Findings: Was a longitudinal view obtained?: No Distal aortic diameter (cm):: 6.09 Interpretation: Aneurysm: Present If present: Infrarenal Electronically signed by Nakita Holguin on Saturday, June 03, 2023 at7:07 PM I have reviewed the images & the resident's interpretation. I agree withthe findings. Electronically signed by TRESSA SORENSEN on Tuesday, June 06, 2023 at 9:46AM I have reviewed the images & the resident's interpretation. I agree withthe findings. Renal/Bladder: Exam Information: Exam type: Diagnostic us Tressa Sorensne MD POCUS ORDERABLES Final Result * POCT creatinine (06/03/2023 6:36 PM CLOD PULLER) Creatinine POC 1.1 0.7 - 1.3 mg/dL [facility] Blood 06/03/2023 6:36 PM CLOD PULLER 06/03/2023 6:36 PM CLOD PULLER us Tressa Sorensen MD LAB POCT ORDERABLES - DEVICE Final Result Performing Organization Address [facility] de Phone Number [facility] Department [place] [address] * eGFR (06/03/2023 6:30 PM CLOD PULLER) eGFR 85 >=60 mL/min/1. 73 m2 [facility] Comment: Interpretive Data Reference Interval Normal [...] interpretive data was last reviewed 2021. Blood 06/03/2023 6:30 PM CLOD PULLER 06/03/2023 6:46 PM CLOD PULLER us Deandre Niño MD LAB BLOOD ORDERABLES Final Resul t Performing Organization Address [facility] Co de Phone Number [facility] Department [place] [address] * Differential, auto (06/03/2023 6:30 PM CLOD PULLER) Neutrophil abs 6.3 1.5 - 6.5 K/cumm [facility] Imm gran abs 0.1 0.0 - 0.1 K/cumm [facility] Lymphocyte abs 1.8 0.8 - 3.3 K/cumm [facility] Monocyte abs 0.6 0.2 - 0.8 K/cumm [facility] Eosinophil abs 0.0 0.0 - 0.5 K/cumm [facility] Basophil abs 0.1 0.0 - 0.1 K/cumm [facility] Neutrophil pct 71.2 % [facility] Comment: Interpretive Data Percent cell count reference ranges are not reported, since discordance with absolute values may lead to misinterpretation of CBC data. Current Interpretive Data was last revised on 2017. Imm gran pct 0.7 % [facility] Comment: Interpretive Data Percent cell count reference ranges are not reported, since discordance with absolute values may lead to misinterpretation of CBC data. Current Interpretive Data was last revised on 2017. Lymphocyte pct 19.8 % [facility] Comment: Interpretive Data Percent cell count reference ranges are not reported, since discordance with absolute values may lead to misinterpretation of CBC data. Current Interpretive Data was last revised on 2017. Monocyte pct 7.2 % [facility] Comment: Interpretive Data Percent cell count reference ranges are not reported, since discordance with absolute values may lead to misinterpretation of CBC data. Current Interpretive Data was last revised on 2017. Eosinophil pct 0.5 % [facility] Comment: Interpretive Data Percent cell count reference ranges are not reported, since discordance with absolute values may lead to misinterpretation of CBC data. Current Interpretive Data was last revised on 2017. Basophil pct 0.6 % [facility] Comment: Interpretive Data Percent cell count reference ranges are not reported, since discordance with absolute values may lead to misinterpretation of CBC data. Current Interpretive Data was last revised on 2017. Blood 06/03/2023 6:30 PM CLOD PULLER 06/03/2023 6:36 PM CLOD PULLER Deandre Niño MD LAB BLOOD ORDERABLES Final Resul t Performing Organization Address [facility] Co de Phone Number [facility] [place] [address] * Troponin I high-sensitivity series (baseline, 2hr, 4hr, 6hr) (06/03/2023 6:30 PM CLOD PULLER) Trop I hs 8 <=35 ng/L [facility] Comment: Interpretive Data For further hscTnI resources including the diagnostic algorithm and an aid in interpretation, copy and paste this link: [email or web address].[email or web address]/[email or web address] Current Interpretive Data last revised 2019. Blood 06/03/2023 6:30 PM CLOD PULLER 06/03/2023 6:36 PM CLOD PULLER us Tressa Sorensen MD LAB BLOOD ORDERABLES Final Re sult Performing Organization Address [facility] [place] [address] * Lipase (06/03/2023 6:30 PM CLOD PULLER) Pathologist [facility] Lipase 40 10 - 99 Units/L [facility] Blood (Blood, Venous) 06/03/2023 6:30 PM CLOD PULLER 06/03/2023 6:36 PM CLOD PULLER Tressa Sorensen MD LAB BLOOD ORDERABLES Final Re sult Performing Organization Address [facility] [place] [address] * (ABNORMAL) Comprehensive metabolic panel (06/03/2023 6:30 PM CLOD PULLER) Pathologist [facility] Sodium 142 135 - 145 mmol/L [facility] Potassium, pl 3.6 3.3 - 4.9 mmol/L [facility] Chloride 105 97 - 110 mmol/L [facility] CO2 25 22 - 32 mmol/L [facility] Anion gap 12 2 - 15 mmol/L [facility] BUN 13 6 - 25 mg/dL [facility] Creatinine 1.17 0.80 - 1.30 mg/dL [facility] Glucose 130 70 - 199 mg/dL [facility] Comment: Interpretive Data Fasting glucose >/= [...] 2022. Calcium 9.9 8.5 - 10.3 mg/dL [facility] Bilirubin, total 0.3 0.1 - 1.2 mg/dL [facility] Protein, pl 9.3(H) 6.5 - 8.5 g/dL [facility] Albumin 4.1 3.5 - 5.0 g/dL [facility] Alk phos 116 40 - 130 Units/L [facility] ALT 19 7 - 55 Units/L [facility] AST 10 10 - 50 Units/L [facility] Blood 06/03/2023 6:30 PM CLOD PULLER 06/03/2023 6:36 PM CLOD PULLER us Tressa Sorensen MD LAB BLOOD ORDERABLES Final Re sult [facility] Department of Laboratories [place], [place] [id number] * (ABNORMAL) CBC with auto differential (06/03/2023 6:30 PM CLOD PULLER) WBC 8.9 3.8 - 9.9 K/cumm [facility] Hgb 10.8(L) 13.0 - 17.5 g/dL [facility] Hct 33.2(L) 38.9 - 50.3 % [facility] Plt 399 150 - 400 K/cumm [facility] MPV 9.1 9.1 - 12.3 fL [facility] RBC 3.73(L) 4.30 - 5.80 M/cumm [facility] MCV 89.0 81.3 - 96.4 fL [facility] MCH 29.0 27.1 - 33.3 pg [facility] MCHC 32.5 32.3 - 35.7 g/dL [facility] RDW CV 12.9 11.1 - 14.9 % [facility] RDW SD 41.5 35.7 - 48.1 fL [facility] NRBC abs 0.00 0.00 - 0.01 K/cumm [facility] Blood (Blood, Venous) 06/03/2023 6:30 PM CLOD PULLER 06/03/2023 6:36 PM CLOD PULLER us Tressa Sorensen MD LAB BLOOD ORDERABLES Final Re sult [facility] Department [place] [address] * ECG 12-LEAD (06/03/2023 6:18 PM CLOD PULLER) Narrative [facility] - 06/03/2023 6:18 PM CLOD PULLER Michael Cortes MD ? 06/03/2023 ??6:19 PM ECG 12 lead Date/Time: 06/03/2023 6:18 PM Performed by: Michael Cortes MD Authorized by: Deandre Niño MD ?? Rate: ??ECG rate: ??Rate 107, narrow complex, regular, sinus, no stemi. nonspecific st changes in I, II, III, aVL, V4-V6 that were present on prior May 13 ECG Procedure Note Michael Cortes MD - 06/03/2023 6:18 PM CST Procedure ECG 12 lead Date/Time: 06/03/2023 6:18 PM Performed by: Michael Cortes MD Authorized by: Deandre Niño MD Rate: ECG rate: Rate 107, narrow complex, regular, sinus, no stemi.nonspecific st changes in I, II, III, aVL, V4-V6 that were present onprior Dec 15 ECG Michael Cortes MD 06/03/23 [id number] us Tressa Sorensen MD ECG ORDERABLES Final Result [facility] documented in this encounter Visit Diagnoses Diagnosis Dissection of abdominal aorta (CMS/HCC) (HCC)- Primary Dissection of aorta, abdominal Dissection of abdominal aorta (CMS/HCC) (HCC) Dissection of aorta, abdominal Abdominal pain determined by examination HTN (hypertension), malignant Essential hypertension, malignant Dissection of thoracoabdominal aorta (CMS/HCC) (HCC) HTN (hypertension) Unspecified essential hypertension Dissection of thoracoabdominal aorta (CMS/HCC) (HCC) Moderate malnutrition (CMS/HCC) (HCC) Dissection of abdominal aorta (CMS/HCC) (HCC) Dissection of aorta, abdominal documented in this encounter Admitting Diagnoses Diagnosis Dissection of abdominal aorta (CMS/HCC) (HCC) Dissection of aorta, abdominal documented in this encounter Administered Medications Inactive Administered Medications - up to 3 most recent administrations Medication Order MAR Action Action Date Dose Rate Site acetaminophen (TYLENOL) tablet 1,000 mg 1,000 mg, oral, Every 6 hours scheduled, First dose on 06/04/23 at 0100, For 31 doses Given 06/11/2023 11:12 AM CLOD PULLER 1,000 mg Given 06/11/2023 6:10 AM CLOD PULLER 1,000 mg Given 06/11/2023 12:16 AM CLOD PULLER 1,000 mg amLODIPine (NORVASC) tablet 10 mg 10 mg, oral, Daily, First dose on 06/04/23 at 0315, On hold since 06/05/2023 at 1333 until manually unheld Given 06/04/2023 2:43 AM CLOD PULLER 10 mg amLODIPine (NORVASC) tablet 5 mg 5 mg, oral, Daily, First dose on Catarina 06/09/23 at 1215 Given 06/11/2023 8:22 AM CLOD PULLER 5 mg Given 06/10/2023 7:15 AM CLOD PULLER 5 mg Given 06/09/2023 1:24 PM CLOD PULLER 5 mg aspirin chewable tablet 81 mg 81 mg, oral, Daily, First dose on Tue06/07/23 at 1115 Given 06/11/2023 8:22 AM CLOD PULLER 81 mg Given 06/10/2023 7:15 AM CLOD PULLER 81 mg Given 06/09/2023 8:52 AM CLOD PULLER 81 mg bisacodyL (DULCOLAX) suppository 10 mg 10 mg, rectal, Daily, First dose on Tue06/08/23 at 1100, Indications: constipationIndications:constipation Carrier Fluids for Secondary Infusion - 0.9% Sodium Chloride 30 mL, intravenous, As needed, For priming tubing and/or flushing, Starting on Tue06/04/23 at 0008 Given 06/06/2023 1:40 AM CLOD PULLER 30 mL Carrier Fluids for Secondary Infusion - 0.9% Sodium Chloride 30 mL, intravenous, As needed, For priming tubing and/or flushing, Starting on Tue06/04/23 at 0008, 0-250 ml/hr to flush line after IV infusions when no maintenance IV ordered. Infuse 30mL at the same rate as the secondary infusion. Run as primary IV, not intended for KVO. carvediloL (COREG) tablet 12.5 mg 12.5 mg, oral, 2 times daily with meals (bkfst, dinner), First dose (after last reorder) on Tue06/04/23 at 0800 Given 06/04/2023 8:02 AM CLOD PULLER 12.5 mg carvediloL (COREG) tablet 12.5 mg 12.5 mg, oral, Once, On Tue06/04/23 at 1115, For 1 dose Given 06/04/2023 11:02 AM CLOD PULLER 12.5 mg carvediloL (COREG) tablet 12.5 mg 12.5 mg, oral, 2 times daily with meals (bkfst, dinner), First dose (after last modification) on Tue06/07/23 at 1930 Given 06/07/2023 8:17 PM CLOD PULLER 12.5 mg carvediloL (COREG) tablet 12.5 mg 12.5 mg, oral, 2 times daily with meals (bkfst, dinner), First dose (after last modification) on 06/09/23 at 0800 Given 06/10/2023 7:15 AM CLOD PULLER 12.5 mg Given 06/09/2023 5:39 PM CLOD PULLER 12.5 mg Given 06/09/2023 8:52 AM CLOD PULLER 12.5 mg carvediloL (COREG) tablet 25 mg 25 mg, oral, Once, On 06/04/23 at 0300, For 1 dose Given 06/04/2023 2:43 AM CLOD PULLER 25 mg carvediloL (COREG) tablet 25 mg 25 mg, oral, 2 times daily with meals (bkfst, dinner), First dose (after last modification) on Tue06/08/23 at 0800 Given 06/08/2023 5:25 PM CLOD PULLER 25 mg Given 06/08/2023 8:21 AM CLOD PULLER 25 mg carvediloL (COREG) tablet 25 mg 25 mg, oral, 2 times daily with meals (bkfst, dinner), First dose (after last modification) on Tue06/10/23 at 1800 Given 06/11/2023 8:22 AM CLOD PULLER 25 mg Given 06/10/2023 5:29 PM CLOD PULLER 25 mg carvediloL (COREG) tablet 50 mg 50 mg, oral, 2 times daily with meals (bkfst, dinner), First dose (after last modification) on 06/04/23 at 1800, On hold since Tue06/05/2023 at 1333 until manually unheld Given 06/04/2023 5:26 PM CLOD PULLER 50 mg carvediloL (COREG) tablet 6.25 mg 6.25 mg, oral, Once, On 06/04/23 at 0045, For 1 dose Given 06/04/2023 12:45 AM CLOD PULLER 6.25 mg ceFAZolin (ANCEF) 2,000 mg/20 mL in sterile water (premix) 2,000 mg 2,000 mg, intravenous, at 400 mL/hr, Administer over 3 Minutes, Every 8 hours scheduled, First dose on Tue06/05/23 at 1830, For 24 hours, Indications: Prophylaxis, SurgicalIndications:Prophylaxis, Surgical Given 06/06/2023 1:52 PM CLOD PULLER 2,000 mg 400 mL/hr Given 06/06/2023 5:11 AM CLOD PULLER 2,000 mg 400 mL/hr Given 06/05/2023 6:29 PM CLOD PULLER 2,000 mg 400 mL/hr clevidipine (CLEVIPREX) 50 mg/100 mL (0.5 mg/mL) [...] hours., Routine New Bag 06/05/2023 1:33 PM CLOD PULLER 4 mg/hr 8 mL/hr Rate/Dose Change 06/05/2023 10:11 AM CLOD PULLER 8 mg/hr 16 mL/ hr Rate/Dose Change 06/05/2023 9:41 AM CLOD PULLER 16 mg/hr 32 mL/h r clevidipine (CLEVIPREX) 50 mg/100 mL (0.5 mg/mL) (premix) 0-32 mg/hr (0-64 mL/hr), 0.5 mg/mL, intravenous, Titrated, Starting on 06/05/23 at 1415, Until 06/08/23 at 1022, Initial rate: Other (comment) / 4, Titrate: Up/Down, Titrate by: 1 mg/hr, Every: 2 minutes, Goal: SBP, SBP Goal: Other (comment) / SBP 140-160, Vial only stable 12 hours after entry. Replace with new vial every 12 hours., Routine Rate/Dose Change 06/08/2023 12:53 AM CLOD PULLER 1 mg/hr 2 mL/hr Rate/Dose Change 06/08/2023 12:40 AM CLOD PULLER 2 mg/hr 4 mL/h r Rate/Dose Change 06/08/2023 12:35 AM CLOD PULLER 3 mg/hr 6 mL/h r docusate sodium (COLACE) capsule 100 mg 100 mg, oral, 2 times daily, First dose on 06/04/23 at 0045, Hold for diarrhea., Indications: constipationIndications:constipation Given 06/11/2023 8:23 AM CLOD PULLER 100 mg Given 06/08/2023 8:21 AM CLOD PULLER 100 mg Given 06/07/2023 8:17 PM CLOD PULLER 100 mg enoxaparin (LOVENOX) syringe 40 mg 40 mg, subcutaneous, Daily (for enoxaparin), First dose on Tue06/08/23 at 2100, Indications: Deep Vein Thrombosis PreventionIndications:Deep Vein Thrombosis Prevention Given 06/10/2023 8:44 PM CLOD PULLER 40 mg Left Lower Abdomen Given 06/09/2023 8:23 PM CLOD PULLER 40 mg Le ft Upper Arm Given 06/08/2023 8:39 PM CLOD PULLER 40 mg Ri ght Upper Arm esmolol in 0.9% sodium chloride (BREVIBLOC) 2,500 mg/250 mL (10 mg/mL) infusion (premix) 0-300 mcg/kg/min ? 99.8 kg (0-179.64 mL/hr), 10 mg/mL, intravenous, Titrated, Starting on Tue06/03/23 at 2128, Until 06/04/23 at 0012, Initial rate: 50 mcg/kg/min, Titrate: Up, Down, Titrate UP by: 50 mcg/kg/min, Titrate UP every: 5 minutes, Titrate DOWN by: 25 mcg/kg/min, Titrate DOWN every: 30 minutes, Goal: MAP, MAP Goal: 70-90 mmHg, STAT Rate/Dose Change 06/04/2023 12:07 AM CLOD PULLER 300 mcg/kg/min 179.6 mL/hr Rate/Dose Verify 06/04/2023 12:00 AM CLOD PULLER 250 mcg/kg/min 14 9.7 mL/hr Rate/Dose Verify 06/03/2023 11:51 PM CLOD PULLER 250 mcg/kg/min 14 9.7 mL/hr esmolol in 0.9% sodium chloride (BREVIBLOC) [...] at goal., RoutineIndications:hypertension Restarted 06/05/2023 1:06 PM CLOD PULLER 100 mL/hr 100 mL/hr Rate/Dose Verify 06/05/2023 9:28 AM CLOD PULLER 179.6 m L/hr Rate/Dose Verify 06/05/2023 9:00 AM CLOD PULLER 300 mcg/kg/min 179 .6 mL/hr furosemide (LASIX) 10 mg/mL injection 20 mg 20 mg, intravenous, Once, On 06/04/23 at 1630, For 1 dose, Room temperature only Given 06/04/2023 4:06 PM CLOD PULLER 20 mg furosemide (LASIX) 10 mg/mL injection 40 mg 40 mg, intravenous, Once, On 06/05/23 at 0145, For 1 dose, For IV push: administer doses < 160 mg at a rate of 20 -40 mg/min. Doses >/= 160 mg should be administered no faster than 4 mg/min. Room temperature only Given 06/05/2023 1:19 AM CLOD PULLER 40 mg furosemide (LASIX) 200 mg in sodium chloride 0.9% 100 mL (2 mg/mL) infusion 15 mg/hr (7.5 mL/hr), 2 mg/mL, intravenous, Continuous, Starting on 06/04/23 at 1945, Until 06/05/23 at 1340, Room temperature only, Routine, On hold since Tue06/05/2023 at 0754 until manually unheld Rate/Dose Verify 06/05/2023 8:00 AM CLOD PULLER 15 mg/hr 7.5 mL/hr Rate/Dose Verify 06/05/2023 7:00 AM CLOD PULLER 15 mg/hr 7.5 mL/ hr Rate/Dose Verify 06/05/2023 6:00 AM CLOD PULLER 15 mg/hr 7.5 mL/ hr gabapentin (NEURONTIN) capsule 300 mg 300 mg, oral, 3 times daily, First dose on 06/04/23 at 0900 Given 06/11/2023 8:23 AM CLOD PULLER 300 mg Given 06/10/2023 8:44 PM CLOD PULLER 300 mg Given 06/10/2023 5:29 PM CLOD PULLER 300 mg heparin 5,000 unit/mL injection 5,000 Units 5,000 Units, subcutaneous, Every 8 hours scheduled, First dose on Tue06/06/23 at 1400, For 2 doses, Indications: Deep Vein Thrombosis PreventionIndications:Deep Vein Thrombosis Prevention Given 06/06/2023 8:59 PM CLOD PULLER 5,000 Units Left Lower Abdomen Given 06/06/2023 1:47 PM CLOD PULLER 5,000 Units L eft Upper Arm heparin 5,000 unit/mL injection 5,000 Units 5,000 Units, subcutaneous, Every 8 hours scheduled, First dose on Tue06/08/23 at 0600, Indications: Deep Vein Thrombosis PreventionIndications:Deep Vein Thrombosis Prevention Given 06/08/2023 5:00 AM CLOD PULLER 5,000 Units Left Upper Abdomen hydrALAZINE (APRESOLINE) injection 10 mg 10 mg, intravenous, Administer over 2 Minutes, Every 4 hours PRN, high blood pressure, for SBP > 160, Starting on Tue06/06/23 at 0946 Given 06/10/2023 2:17 PM CLOD PULLER 10 mg Given 06/10/2023 5:15 AM CLOD PULLER 10 mg Given 06/09/2023 11:43 PM CLOD PULLER 10 mg hydrALAZINE (APRESOLINE) tablet 25 mg 25 mg, oral, 3 times daily, First dose (after last modification) on Catarina 06/09/23 at 1600, Hold for SBP <140, Indications: hypertensionIndications:hypertension Given 06/10/2023 7:15 AM CLOD PULLER 25 mg Given 06/09/2023 8:23 PM CLOD PULLER 25 mg Given 06/09/2023 5:40 PM CLOD PULLER 25 mg hydrALAZINE (APRESOLINE) tablet 25 mg 25 mg, oral, 3 times daily, First dose on Tue06/11/23 at 0830, Indications: hypertensionIndications:hypertension Given 06/11/2023 8:23 AM CLOD PULLER 25 mg hydrALAZINE (APRESOLINE) tablet 50 mg 50 mg, oral, 3 times daily, First dose on Tue06/08/23 at 1100, Indications: hypertensionIndications:hypertension Given 06/09/2023 8:52 AM CLOD PULLER 50 mg Given 06/08/2023 8:39 PM CLOD PULLER 50 mg Given 06/08/2023 4:16 PM CLOD PULLER 50 mg HYDROmorphone (DILAUDID) 0.5 mg/0.5 mL injection - ADS Override Pull Starting on Tue06/05/23 at 1352, For 1 dose, Created by cabinet override HYDROmorphone (DILAUDID) injection 0.5 mg 0.5 mg, intravenous, Administer over 2 Minutes, Once, On Tue06/05/23 at 1430, For 1 dose Given 06/05/2023 1:54 PM CLOD PULLER 0.5 mg HYDROmorphone (DILAUDID) injection 0.5 mg 0.5 mg, intravenous, Administer over 2 Minutes, Once, On Tue06/05/23 at 1445, For 1 dose Given 06/05/2023 2:12 PM CLOD PULLER 0.5 mg HYDROmorphone (DILAUDID) injection 0.5 mg 0.5 mg, intravenous, Administer over 2 Minutes, Every 2 hours PRN, breakthrough pain, Starting on Tue06/07/23 at 0900 Given 06/08/2023 12:23 PM CLOD PULLER 0.5 mg Given 06/08/2023 8:31 AM CLOD PULLER 0.5 mg Given 06/08/2023 4:57 AM CLOD PULLER 0.5 mg HYDROmorphone (DILAUDID) injection 1 mg 1 mg, intravenous, Administer over 2 Minutes, Every 3 hours PRN, 1st line for pain, Starting on Tue06/03/23 at 1956 Given 06/03/2023 8:16 PM CLOD PULLER 1 mg HYDROmorphone (DILAUDID) injection 1 mg 1 mg, intravenous, Administer over 2 Minutes, Every 2 hours PRN, 1st line for pain, Starting on Tue06/03/23 at 2214 Given 06/03/2023 10:16 PM CLOD PULLER 1 mg HYDROmorphone in 0.9% sodium chloride (DILAUDID) 20 mg/100 mL (0.2 mg/mL) (premix) Continuous: none, TALENT DEVELOPMENT MANAGER dose: 0.2 mg, TALENT DEVELOPMENT MANAGER lockout: 10 Minutes, 1 hour limit: 1.2 mg, intravenous, Continuous, Starting on 06/04/23 at 0045, Until 06/04/23 at 1612, 100 mL, Indications: Pain, RoutineIndications:Pain New Syringe/Cartridge 06/04/2023 12:28 AM CLOD PULLER HYDROmorphone in 0.9% sodium chloride (DILAUDID) 20 mg/100 mL (0.2 mg/mL) (premix) Continuous: none, TALENT DEVELOPMENT MANAGER dose: 0.5 mg, TALENT DEVELOPMENT MANAGER lockout: 10 Minutes, 1 hour limit: 3 mg, intravenous, Continuous, Starting on 06/04/23 at 1645, Until Tue06/07/23 at 0901, 100 mL, Indications: Pain, RoutineIndications:Pain New Syringe/Cartridge 06/07/2023 1:27 AM CLOD PULLER New Syringe/Cartridge 06/06/2023 8:52 AM CLOD PULLER New Syringe/Cartridge 06/05/2023 2:16 PM CLOD PULLER ioversoL (OPTIRAY 350) syringe 100 mL 100 mL, intravenous, Once in imaging, contrast, Starting on Tue06/03/23 at 1912, For 1 dose Contrast Given 06/03/2023 7:19 PM CLOD PULLER 92 mL ioversoL (OPTIRAY 350) syringe 125 mL 125 mL, intravenous, Once in imaging, contrast, Starting on Tue06/10/23 at 0821, For 1 dose Contrast Given 06/10/2023 8:34 AM CLOD PULLER 120 mL labetaloL (NORMODYNE,TRANDATE) injection 10 mg 10 mg, intravenous, at 60 mL/hr, Administer over 2 Minutes, Once, On Tue06/03/23 at 1919, For 1 dose Given 06/03/2023 7:24 PM CLOD PULLER 10 mg 60 mL/hr labetaloL (NORMODYNE,TRANDATE) injection 10 mg 10 mg, intravenous, at 60 mL/hr, Administer over 2 Minutes, Once, On Tue06/10/23 at 0230, For 1 dose Given 06/10/2023 2:12 AM CLOD PULLER 10 mg 60 mL/hr labetaloL (NORMODYNE,TRANDATE) injection 20 mg 20 mg, intravenous, at 120 mL/hr, Administer over 2 Minutes, Every 30 min PRN, high blood pressure, HR<60, SBP<120, Starting on 06/04/23 at 1303 Given 06/04/2023 1:43 PM CLOD PULLER 20 mg 120 mL/hr Given 06/04/2023 1:11 PM CLOD PULLER 20 mg 120 mL/hr labetaloL (NORMODYNE,TRANDATE) injection 40 mg 40 mg, intravenous, at 240 mL/hr, Administer over 2 Minutes, Every 30 min PRN, high blood pressure, HR<60, SBP<120, Starting on Tue06/04/23 at 1353 Given 06/04/2023 4:06 PM CLOD PULLER 40 mg 240 mL/hr Given 06/04/2023 3:14 PM CLOD PULLER 40 mg 240 mL/hr Given 06/04/2023 2:11 PM CLOD PULLER 40 mg 240 mL/hr labetaloL (NORMODYNE,TRANDATE) tablet 100 mg 100 mg, oral, Once, On Tue06/03/23 at 1920, For 1 dose Given 06/03/2023 7:45 PM CLOD PULLER 100 mg Lactated Ringer's (LR) infusion 10 mL/hr, intravenous, Continuous, Starting on Tue06/04/23 at 0045 Rate/Dose Verify 06/07/2023 9:00 AM CLOD PULLER 10 mL/hr 10 mL/hr Restarted 06/07/2023 8:26 AM CLOD PULLER 10 mL/hr 10 mL/hr Rate/Dose Verify 06/07/2023 6:00 AM CLOD PULLER 10 mL/hr 10 mL/h r magnesium citrate oral solution 148 mL 148 mL, oral, Once, On Tue06/08/23 at 1100, For 1 dose Given 06/08/2023 11:17 AM CLOD PULLER 148 mL magnesium sulfate 2 g/50 mL in water (premix) 2 g 2 g, intravenous, Administer over 60 Minutes, Once, On Tue06/04/23 at 0230, For 1 dose New Bag 06/04/2023 1:58 AM CLOD PULLER 2 g magnesium sulfate 4 g/100 mL in water (premix) 4 g 4 g, intravenous, Administer over 90 Minutes, Once, On Tue06/06/23 at 0200, For 1 dose New Bag 06/06/2023 1:40 AM CLOD PULLER 4 g methocarbamoL (ROBAXIN) tablet 750 mg 750 mg, oral, 3 times daily, First dose on Tue06/04/23 at 0100 Given 06/11/2023 8:23 AM CLOD PULLER 750 mg Given 06/10/2023 8:44 PM CLOD PULLER 750 mg Given 06/10/2023 5:29 PM CLOD PULLER 750 mg metoclopramide (REGLAN) 5 mg/mL injection 10 mg 10 mg, intravenous, Once, On Tue06/05/23 at 1445, For 1 dose, Please push slowly Given 06/05/2023 2:12 PM CLOD PULLER 10 mg morphine injection 4 mg 4 mg, intravenous, Administer over 4 Minutes, Once, On Tue06/03/23 at 1819, For 1 dose Given 06/03/2023 6:36 PM CLOD PULLER 4 mg niCARdipine in sodium chloride 0.9% (CARDENE) 25,000 mcg/250 mL (100 mcg/mL) infusion (premix) solution 0-2.5 mcg/kg/min ? 99.8 kg (0-149.7 mL/hr), 100 mcg/mL, intravenous, Titrated, Starting on Tue06/03/23 at 2208, Until 06/04/23 at 0012, Initial rate: 0.5 mcg/kg/min, Titrate: Up/Down, Titrate by: 0.5 mcg/kg/min, Every: 10 minutes, Goal: SBP, SBP Goal: Other (comment) / 120, Maximum 2.5 mcg/kg/min or 15 mg/hr. Contact provider if maximum reached and MAP/BP not at goal for additional instructions., Routine Rate/Dose Change 06/04/2023 12:12 AM CLOD PULLER 2 mcg/kg/min 119.8 mL/hr Rate/Dose Verify 06/04/2023 12:00 AM CLOD PULLER 1.5 mcg/kg/min 89 .8 mL/hr Rate/Dose Verify 06/03/2023 11:51 PM CLOD PULLER 1.5 mcg/kg/min 89 .8 mL/hr niCARdipine in sodium chloride 0.9% (CARDENE) 25,000 mcg/250 mL (100 mcg/mL) infusion (premix) solution 0-2.5 mcg/kg/min ? 99.8 kg (0-149.7 mL/hr), 100 mcg/mL, intravenous, Titrated, Starting on 06/04/23 at 0045, Until 06/04/23 at 1355, Indications: hypertension, Initial rate: 0.5 mcg/kg/min, Titrate: Up/Down, Titrate by: 0.5 mcg/kg/min, Every: 10 minutes, Goal: SBP, SBP Goal: Other (comment) / <120, Discontinue when drip is off and stable at goal. Maximum 2.5 mcg/kg/min or 15 mg/hr. Contact provider if maximum reached and MAP/BP not at goal for additional instructions. , RoutineIndications:hypert ension Rate/Dose Verify 06/04/2023 1:00 PM CLOD PULLER 2.5 mcg/kg/min 149.7 mL/hr Rate/Dose Change 06/04/2023 12:57 PM CLOD PULLER 2.5 mcg/kg/min 14 9.7 mL/hr Rate/Dose Change 06/04/2023 12:45 PM CLOD PULLER 2 mcg/kg/min 119. 8 mL/hr ondansetron (ZOFRAN) injection 4 mg 4 mg, intravenous, Administer over 2 Minutes, Every 6 hours PRN, nausea, vomiting, Starting on Tue06/04/23 at 0005, Administer no sooner than 6 hours after last dose. Given 06/10/2023 6:17 PM CLOD PULLER 4 mg Given 06/07/2023 9:11 AM CLOD PULLER 4 mg Given 06/06/2023 5:17 PM CLOD PULLER 4 mg oxyCODONE (ROXICODONE) tablet 10 mg 10 mg, oral, Every 4 hours PRN, 1st line for pain, Starting on Tue06/07/23 at 0900, Indications: PainIndications:Pain Given 06/11/2023 11:12 AM CLOD PULLER 10 mg Given 06/11/2023 7:14 AM CLOD PULLER 10 mg Given 06/11/2023 3:14 AM CLOD PULLER 10 mg polyethylene glycol (MIRALAX) packet 17 g 17 g, oral, Daily, First dose on Tue06/04/23 at 0900, Hold for diarrhea, Indications: constipationIndications:constipation Given 06/06/2023 8:09 AM CLOD PULLER 17 g polyethylene glycol (MIRALAX) packet 17 g 17 g, oral, 2 times daily, First dose (after last modification) on Tue06/07/23 at 0900, Hold for diarrhea, Indications: constipationIndications:constipation Given 06/11/2023 8:22 AM CLOD PULLER 17 g Given 06/08/2023 8:21 AM CLOD PULLER 17 g Given 06/07/2023 8:17 PM CLOD PULLER 17 g potassium chloride 20 mEq/260 mL in sodium chloride 0.9% (premix) 20 mEq 20 mEq, intravenous, Administer over 2 Hours, Once, On Tue06/06/23 at 0600, For 1 dose, Total dose = 60 mEq. Start immediately after first potassium chloride infusion ends., Indications: hypokalemiaIndications:hypokalem ia New Bag 06/06/2023 5:58 AM CLOD PULLER 20 mEq potassium chloride 40 mEq/520 mL in sodium chloride 0.9% (premix) 40 mEq 40 mEq, intravenous, at 130 mL/hr, Administer over 4 Hours, Once, On Tue06/06/23 at 0200, For 1 dose, Total dose = 60 mEq, Indications: hypokalemiaIndications:hypokalem ia New Bag 06/06/2023 1:40 AM [facility] 40 mEq 130 mL/hr potassium chloride ER (KLOR-CON) extended release tablet 40 mEq 40 mEq, oral, Once, On Tue06/06/23 at 1100, For 1 dose, Tablets should not be crushed, chewed, dissolved, or otherwise manipulated. Capsules may be opened and sprinkled on a spoonful of applesauce or pudding, but the contents of the capsule should not be crushed or chewed. Given 06/06/2023 11:21 AM [facility] 40 mEq potassium chloride ER (KLOR-CON) extended release tablet 40 mEq 40 mEq, oral, Once, On Tue06/08/23 at 0130, For 1 dose, Tablets should not be crushed, chewed, dissolved, or otherwise manipulated. Capsules may be opened and sprinkled on a spoonful of applesauce or pudding, but the contents of the capsule should not be crushed or chewed. Given 06/08/2023 4:57 AM [facility] 40 mEq potassium, sodium phosphates (PHOS-NAK) 280-160-250 mg packet 2 packet 2 packet, oral, 3 times daily before meals, First dose on Tue06/07/23 at 0730, For 3 doses, mg dosing is based on phosphorus component. Each packet contains 250 mg elemental phosphorus. Each packet contains elemental phosphorus 250 mg (8 mmol), potassium 280 mg (7.1 mEq), and sodium 160 mg (6.9 mEq). Given 06/07/2023 5:01 PM CLOD PULLER 2 packets Given 06/07/2023 11:11 AM CLOD PULLER 2 packets Given 06/07/2023 8:14 AM CLOD PULLER 2 packets prochlorperazine (COMPAZINE) injection 5 mg 5 mg, intravenous, Administer over 2 Minutes, Once, On Tue06/04/23 at 0900, For 1 dose Given 06/04/2023 8:36 AM CLOD PULLER 5 mg prochlorperazine (COMPAZINE) injection 5 mg 5 mg, intravenous, Administer over 2 Minutes, Every 6 hours PRN, nausea, vomiting, Starting on Tue06/05/23 at 2234 Given 06/07/2023 9:56 AM CLOD PULLER 5 mg Given 06/05/2023 10:39 PM CLOD PULLER 5 mg QUEtiapine (SEROquel) tablet 50 mg 50 mg, oral, Nightly, First dose on Tue06/07/23 at 2100 Given 06/10/2023 8:44 PM CLOD PULLER 50 mg Given 06/09/2023 8:22 PM CLOD PULLER 50 mg Given 06/08/2023 8:39 PM CLOD PULLER 50 mg ramelteon (ROZEREM) tablet 8 mg 8 mg, oral, Nightly PRN, sleep, Starting on Tue06/08/23 at 1021, Indications: Sleep-Onset InsomniaIndications:Sleep-Onset Insomnia senna (SENOKOT) tablet 1 tablet 1 tablet, oral, 2 times daily, First dose on 06/04/23 at 0045, Hold for diarrhea., Indications: constipationIndications:constipation Given 06/11/2023 8:22 AM CLOD PULLER 1 table t Given 06/08/2023 8:21 AM CLOD PULLER 1 tablet Given 06/07/2023 8:17 PM CLOD PULLER 1 tablet sodium chloride (OCEAN) 0.65 % nasal spray 2 spray 2 spray, each nostril, Every 2 hours PRN, congestion, Starting on Tue06/06/23 at 1540 sodium chloride 0.9% 0.9% infusion - ADS Override Pull Starting on 06/04/23 at 0003, For 1 dose, Created by cabinet override sodium chloride 0.9% flush 0.5-20 mL 0.5-20 mL, intra-catheter, Every 8 hours scheduled, First dose on 06/04/23 at 0045, Flush volume based on line type and size. Given 06/10/2023 8:44 PM CLOD PULLER 10 mL Given 06/10/2023 5:15 AM CLOD PULLER 10 mL Given 06/09/2023 10:10 PM CLOD PULLER 10 mL sodium chloride 0.9% flush 0.5-20 mL 0.5-20 mL, intra-catheter, As needed, line care, Starting on 06/04/23 at 0008, Flush volume based on line type and size. Flush before and after each use. sodium chloride 0.9% IVPB 0-250 mL 0-250 mL, intravenous, Once, On 06/05/23 at 0830, For 1 dose, Prime blood tubing and administer amount needed to clear line (usually 50-100 mL) after transfusion complete. New Bag 06/05/2023 9:15 AM CLOD PULLER 30 mL sodium chloride 0.9% solution 3-12 mL/hr, intra-catheter, Continuous, Starting on 06/04/23 at 0045, Amount needed for invasive pressure monitoring with 300 mg Hg to maintain patency. Rate/Dose Verify 06/08/2023 10:00 AM CLOD PULLER 3 mL/hr 3 mL/hr Rate/Dose Verify 06/08/2023 9:00 AM CLOD PULLER 3 mL/hr 3 mL/hr Rate/Dose Verify 06/08/2023 8:00 AM CLOD PULLER 3 mL/hr 3 mL/hr tamsulosin (FLOMAX) extended release capsule 0.4 mg 0.4 mg, oral, Daily with dinner, First dose (after last modification) on 06/04/23 at 0400, Do not crush, chew, cut, dissolve, open or otherwise manipulate tablet/capsule. Given 06/04/2023 5:16 AM CLOD PULLER 0.4 mg tamsulosin (FLOMAX) extended release capsule 0.8 mg 0.8 mg, oral, Daily with dinner, First dose (after last modification) on 06/04/23 at 1800, Do not crush, chew, cut, dissolve, open or otherwise manipulate tablet/capsule. Given 06/10/2023 5:29 PM CLOD PULLER 0.8 mg Given 06/09/2023 5:40 PM CLOD PULLER 0.8 mg Given 06/08/2023 5:25 PM CLOD PULLER 0.8 mg documented in this encounter Discontinued Medications Medication Sig Discontinue Reason Start Date End Da te carvediloL (COREG) 12.5 mg tablet Take 1 tablet (12.5 mg total) by mouth 2 (two) times a day Stop Taking at Discharge 05/16/2023 06/11/2023 documented as of this encounter Active and Recently Administered Medications Times are shown in CLOD PULLER. Scheduled Medication Order 06/09/2023 06/10/2023 06/11/2023 acetaminophen (TYLENOL) tablet 1,000 mg 1,000 mg, oral, Every 6 hours scheduled, First dose on Tue06/04/23 at 0100, For 31 doses 0051 (Not Given - Provider: Linda Betancourt RN - Reason: Other - Comment: patient asleep)0450 (Given - Provider: Linda Betancourt RN - Comment: 0000 dose not given)1321 (Given - Provider: Jill Dunn RN)1740 (Given - Provider: Jill Dunn RN)2344 (Given - Provider: Edel Sharp RN) 0513 (Given - Provider: Edel Sharp RN)1215 (Given - Provider: Jill Dunn RN)1729 (Given - Provider: Jill Dunn RN) 0016 (Given - Provider: Leticia Navas, BRIA)0610 (Given - Provider: Leticia Navas, BRIA)1112 (Given - Provider: Rita Braden RN) amLODIPine (NORVASC) tablet 5 mg 5 mg, oral, Daily, First dose on Catarina 06/09/23 at 1215 1324 (Given - Provider: Jill Dunn RN) 0715 (Given - Provider: Jill Dunn RN - Comment: BP elevated this morning) 0822 (Given - Provider: Rita Braden, BRIA) aspirin chewable tablet 81 mg 81 mg, oral, Daily, First dose on Tue06/07/23 at 1115 0852 (Given - Provider: Jill Dunn RN) 0715 (Given - Provider: Jill Dunn RN - Comment: BP elevated this morning) 0822 (Given - Provider: Rita Braden RN) bisacodyL (DULCOLAX) suppository 10 mg 10 mg, rectal, Daily, First dose on Tue06/08/23 at 1100, Indications: constipation 0852 (Not Given - Provider: Jill Dunn RN - Reason: Patient/family refused) 0727 (Not Given - Provider: Jill Kreissler, RN - Reason: Patient/family refused) 0823 (Not Given - Provider: Rita Braden RN - Reason: Patient/family refused) carvediloL (COREG) tablet 12.5 mg (CANCELED) 12.5 mg, oral, 2 times daily with meals (bkfst, dinner), First dose (after last modification) on Catarina 06/09/23 at 0800 0852 (Given - Provider: Jill Dunn RN)1739 (Given - Provider: Jill Dunn RN) 0715 (Given - Provider: Jill Dunn RN - Comment: BP elevated this morning) carvediloL (COREG) tablet 25 mg 25 mg, oral, 2 times daily with meals (bkfst, dinner), First dose (after last modification) on Tue06/10/23 at 1800 1729 (Given - Provider: Jill Dunn RN) 0822 (Given - Provider: Rita Braden RN) docusate sodium (COLACE) capsule 100 mg(Linked Group 1) 100 mg, oral, 2 times daily, First dose on 06/04/23 at 0045, Hold for diarrhea., Indications: constipation 851 (Not Given - Provider: Jill Dunn RN - Reason: Patient/family refused)2120 (Not Given - Provider: Edel Sharp RN - Reason: Patient/family refused) 07 (Not Given - Provider: Jill Dunn RN - Reason: Patient/family refused)192 (Not Given - Provider: Leticia Navas RN - Reason: Patient/family refused) 0823 (Given - Provider: Rita Braden RN) enoxaparin (LOVENOX) syringe 40 mg 40 mg, subcutaneous, Daily (for enoxaparin), First dose on Tue06/08/23 at 2100, Indications: Deep Vein Thrombosis Prevention 2022 (Given - Provider: Edel Sharp RN) 2043 (Given - Provider: Leticia Navas, BRIA) gabapentin (NEURONTIN) capsule 300 mg 300 mg, oral, 3 times daily, First dose on 06/04/23 at 0900 0852 (Given - Provider: Jill Dunn RN)1634 (Given - Provider: Jill Dunn RN)2022 (Given - Provider: Edel Sharp RN) 0715 (Given - Provider: Jill Dunn RN - Comment: BP elevated this morning)172 (Given - Provider: Jill Dunn RN)2043 (Given - Provider: Leticia Navas RN) 0823 (Given - Provider: Rita Braden RN) hydrALAZINE (APRESOLINE) tablet 25 mg (CANCELED) 25 mg, oral, 3 times daily, First dose (after last modification) on Catarina 06/09/23 at 1600, Hold for SBP <140, Indications: hypertension 1740 (Given - Provider: Jill Dunn RN - Comment: monitoring BP)2022 (Given - Provider: Edel Sharp RN) 07 (Given - Provider: Jill Dunn RN - Comment: BP elevated this morning) hydrALAZINE (APRESOLINE) tablet 25 mg 25 mg, oral, 3 times daily, First dose on 06/11/23 at 0830, Indications: hypertension 0823 (Given - Provider: Rita Braden RN) hydrALAZINE (APRESOLINE) tablet 50 mg (CANCELED) 50 mg, oral, 3 times daily, First dose on Tue06/08/23 at 1100, Indications: hypertension 0852 (Given - Provider: Jill Dunn RN) labetaloL (NORMODYNE,TRANDATE) injection 10 mg (COMPLETED) 10 mg, intravenous, at 60 mL/hr, Administer over 2 Minutes, Once, On Tue06/10/23 at 0230, For 1 dose 0212 (Given - Provider: Edel Sharp RN) methocarbamoL (ROBAXIN) tablet 750 mg 750 mg, oral, 3 times daily, First dose on 06/04/23 at 0100 0852 (Given - Provider: Jill Dunn RN)1634 (Given - Provider: Jill Dunn RN)2022 (Given - Provider: Edel Sharp RN) 0715 (Given - Provider: Jill Dunn RN - Comment: BP elevated this morning)172 (Given - Provider: Jill Dunn RN)2043 (Given - Provider: Leticia Navas, BRIA) 08 (Given - Provider: Rita Braden, BRIA) polyethylene glycol (MIRALAX) packet 17 g 17 g, oral, 2 times daily, First dose (after last modification) on Tue06/07/23 at 0900, Hold for diarrhea, Indications: constipation 0853 (Not Given - Provider: Jill Dunn RN - Reason: Patient/family refused)2026 (Not Given - Provider: Edel Sharp RN - Reason: Patient/family refused) 07 (Not Given - Provider: Jill Dunn RN - Reason: Patient/family refused)1929 (Not Given - Provider: Leticia Navas RN - Reason: Patient/family refused) 0822 (Given - Provider: Rita Braden RN) QUEtiapine (SEROquel) tablet 50 mg 50 mg, oral, Nightly, First dose on Tue06/07/23 at 2100 2021 (Given - Provider: Edel Sharp RN) 2043 (Given - Provider: Leticia Navas, BRIA) senna (SENOKOT) tablet 1 tablet(Linked Group 2) 1 tablet, oral, 2 times daily, First dose on Tue06/04/23 at 0045, Hold for diarrhea., Indications: constipation 0853 (Not Given - Provider: Jill Dunn RN - Reason: Patient/family refused)2027 (Not Given - Provider: Edel Sharp RN - Reason: Patient/family refused) 0728 (Not Given - Provider: Jill Dunn RN - Reason: Patient/family refused)1929 (Not Given - Provider: Leticia Navas RN - Reason: Patient/family refused) 0822 (Given - Provider: Rita Braden RN) sodium chloride 0.9% flush 0.5-20 mL 0.5-20 mL, intra-catheter, Every 8 hours scheduled, First dose on Tue06/04/23 at 0045, Flush volume based on line type and size. 0521 (Not Given - Provider: Linda Betancourt RN - Reason: Other)1204 (Not Given - Provider: Jill Dunn RN - Reason: Other)2210 (Given - Provider: Edel Sharp RN) 0515 (Given - Provider: Edel Sharp RN)1216 (Not Given - Provider: Jill Dunn RN - Reason: Patient/family refused)2044 (Given - Provider: Leticia Navas, BRIA) 0405 (Not Given - Provider: Leticia Navas, BRIA - Reason: Other) tamsulosin (FLOMAX) extended release capsule 0.8 mg 0.8 mg, oral, Daily with dinner, First dose (after last modification) on 06/04/23 at 1800, Do not crush, chew, cut, dissolve, open or otherwise manipulate tablet/capsule. 1740 (Given - Provider: Jill Dunn RN) 1729 (Given - Provider: Jill Dunn RN) PRN Medication Order 06/09/2023 06/10/2023 06/11/2023 Carrier Fluids for Secondary Infusion - 0.9% Sodium Chloride 30 mL, intravenous, As needed, For priming tubing and/or flushing, Starting on 06/04/23 at 0008 Carrier Fluids for Secondary Infusion - 0.9% Sodium Chloride 30 mL, intravenous, As needed, For priming tubing and/or flushing, Starting on 06/04/23 at 0008, 0-250 ml/hr to flush line after IV infusions when no maintenance IV ordered. Infuse 30mL at the same rate as the secondary infusion. Run as primary IV, not intended for KVO. hydrALAZINE (APRESOLINE) injection 10 mg (CANCELED) 10 mg, intravenous, Administer over 2 Minutes, Every 4 hours PRN, high blood pressure, for SBP > 160, Starting on Tue06/06/23 at 0946 1352 (Given - Provider: Jill Dunn RN)2343 (Given - Provider: Edel Sharp RN) 0515 (Given - Provider: Edel Sharp RN)1417 (Given - Provider: Jill Dunn RN) ioversoL (OPTIRAY 350) syringe 125 mL (COMPLETED) 125 mL, intravenous, Once in imaging, contrast, Starting on Tue06/10/23 at 0821, For 1 dose 0834 (Contrast Given - Provider: Craig Rojo, RT) ondansetron (ZOFRAN) injection 4 mg 4 mg, intravenous, Administer over 2 Minutes, Every 6 hours PRN, nausea, vomiting, Starting on 06/04/23 at 0005, Administer no sooner than 6 hours after last dose. 1817 (Given - Provider: Jill Dunn RN) oxyCODONE (ROXICODONE) tablet 10 mg 10 mg, oral, Every 4 hours PRN, 1st line for pain, Starting on Tue06/07/23 at 0900, Indications: Pain 0450 (Given - Provider: Linda Betancourt, BRIA)0856 (Given - Provider: Jill Dunn RN)1321 (Given - Provider: Jill Dunn RN)1745 (Given - Provider: Jill Dunn RN)2210 (Given - Provider: Edel Sharp RN) 0211 (Given - Provider: Edel Sharp RN)0639 (Given - Provider: Edel Sharp RN)1216 (Given - Provider: Jill Dunn RN)1733 (Given - Provider: Jill Dunn RN)2147 (Given - Provider: Leticia Navas, BRIA) 0314 (Given - Provider: Leticia Navas, BRIA)0714 (Given - Provider: Leticia Navas, BRIA)1112 (Given - Provider: Rita Braden, BRIA) prochlorperazine (COMPAZINE) injection 5 mg 5 mg, intravenous, Administer over 2 Minutes, Every 6 hours PRN, nausea, vomiting, Starting on Tue06/05/23 at 2234 ramelteon (ROZEREM) tablet 8 mg 8 mg, oral, Nightly PRN, sleep, Starting on Tue06/08/23 at 1021, Indications: Sleep-Onset Insomnia sodium chloride (OCEAN) 0.65 % nasal spray 2 spray 2 spray, each nostril, Every 2 hours PRN, congestion, Starting on Tue06/06/23 at 1540 sodium chloride 0.9% flush 0.5-20 mL 0.5-20 mL, intra-catheter, As needed, line care, Starting on 06/04/23 at 0008, Flush volume based on line type and size. Flush before and after each use. Linked Groups Order Group 1: docusate sodium (COLACE) capsule 100 mgJump to med 100 mg, oral, 2 times daily, First dose on 06/04/23 at 0045, Hold for diarrhea., Indications: constipation Or docusate (COLACE) 10 mg/mL oral liquid 100 mg (CANCELED) 100 mg, feeding tube, 2 times daily, First dose on 06/04/23 at 0045, Hold for diarrhea., Indications: constipation Group 2: senna (SENOKOT) tablet 1 tabletJump to med 1 tablet, oral, 2 times daily, First dose on 06/04/23 at 0045, Hold for diarrhea., Indications: constipation Or senna 1.76 mg/mL syrup 8.8 mg (CANCELED) 8.8 mg, feeding tube, 2 times daily, First dose on 06/04/23 at 0045, Hold for diarrhea., Indications: constipation documented in this encounter Orders Medications Ordered That Gerardo ht Not Have Been Administered Count Last Ordered Date First Ordered Date carvediloL (COREG) tablet 12.5 mg 1 024 hydrALAZINE (APRESOLINE) tablet 10 mg 1 04/2024 bisacodyL (DULCOLAX) suppository 10 mg 1 ramelteon (ROZEREM) tablet 8 mg 1 carvediloL (COREG) tablet 25 mg 2 4 06/04/2023 potassium chloride ER (KLOR- CON) extended release tablet 40 mEq 1 06/07/2023 sodium chloride (OCEAN) 0.65 % nasal spray 2 spray 1 06/06/2023 clevidipine (CLEVIPREX) 50 m g/100 mL (0.5 mg/mL) (premix) 1 06/05/2023 heparin in 0.9% sodium chlor radha 2,000 unit/1,000 mL (2 unit/mL) infusion (premix) 1 06/05/2023 ioversoL (OPTIRAY 320) injection 06/05/19 Carrier Fluids for Secondary Infusion - 0.9% Sodium Chloride 1 06/04/2023 docusate (COLACE) 10 mg/mL o ral liquid 100 mg 1 06/04/2023 lidocaine (XYLOCAINE) 10 mg/ mL (1 %) injection 100 mg 1 06/04/2023 naloxone (NARCAN) 0.4 mg/mL injection 0.04-0.4 mg 1 06/04/2023 senna 1.76 mg/mL syrup 8.8 mg 1 06/04/2023 sodium chloride 0.9% flush 0.5-20 mL 1 10/2023 tamsulosin (FLOMAX) extended release capsule 0.4 mg 1 06/04/2023 Lab Orders Without Results Count Last Ordered D ate First Ordered Date MAGNESIUM 1 06/05/2023 PHOSPHORUS 1 06/05/2023 POCT CREATININE - DEVICE 1 06/03/2023 Imaging Orders Without Results Count Last Order ed Date First Ordered Date PEP THERAPY/AIRWAY CLEARANCE 8 06/10/2023 06/08/2023 Diet Count Last Ordered Date First Orde red Date ADULT DISCHARGE DIET 1 06/11/2023 Nursing Count Last Ordered Date First Orde red Date DISCHARGE ACTIVITY 3 06/11/2023 DISCHARGE CALL PROVIDER 8 06/11/2023 DISCHARGE INSTRUCTIONS 2 06/11/2023 DISCONTINUE VASCULAR ACCESS (SPECIFY) 1 02/2024 TELEMETRY MONITORING 1 06/08/2023 HUTTON CATHETER - DISCONTINUE 1 06/07/2023 OR TRANSFUSION BLOOD PRODUCT REQUEST 1 11/2023 STRAIGHT CATH 1 06/04/2023 Consult Count Last Ordered Date First Orde red Date IP CONSULT TO SOCIAL WORK 1 06/06/2023 IP CONSULT TO NUTRITION SERVICES 1 06/04/19 24 Admission Count Last Ordered Date First Orde red Date ADMIT TO INPATIENT 1 06/03/2023 Transfer Count Last Ordered Date First Orde red Date TRANSFER PATIENT TO NEW UNIT 1 06/08/2023 Discharge Count Last Ordered Date First Orde red Date DISCHARGE PATIENT 1 06/11/2023 CORE MEASURES Count Last Ordered Date First Ord ered Date REASON FOR NO VTE PROPHYLAXI S - HOSPITAL ADMISSION - MEDICATIONS 1 06/04/2023 Case Request Count Last Ordered Date First Orde red Date CASE REQUEST OPERATING ROOM 1 06/05/2023 documented in this encounter Care Teams Printing Gray Cloth Tender Relationship Specialty Start Date End Date Unknown, Notinfile PCP - General 04/30/23 06/05/23 Carl Strickland MD [address] [facility] [address] [place] [address] PCP - General Internal Medicine 06/06/23 Leo Manzano MD [address] [facility] [place] [address] [place] [address] Surgeon Vascular Surgery 05/16/23 documented as of this encounter
--- OUTSIDE RECORDS SUMMARY | 2024-05-30 05:39 | XMS_ITS | Encounter Summary ---
Author Organization [facility] Address [address] [place] [address] Phone Care Team Providers Care Time Clock Repairer Name Role Phone Unknown, Notinfile Primary Care Provider Unavail able Leo Manzano MD Unavailable [phone] Encounter Details Date Type Department Care Team (Late st Contact Info) Description 05/19/2023 Telephone [facility] Surgery [address] [place] [address] Manish Grider CMA Social History Tobacco Use Types Packs/Day Years Used Date Smoking Tobacco: Never Smokeless Tobacco: Never Personal Safety Answer Date Recorded Getting School Help Needed Denies 05/09 Sex and Gender Information Value Date Recorded Sex Assigned at Not on file Legal Sex Male 3:42 AM BACKWINDER Gender Identity Not on file Sexual Orientation Straight 06/12/2023 11 :43 PM BACKWINDER documented as of this encounter Miscellaneous Notes * Telephone Encounter - Manish Grider CMA - 05/19/2023 10:07 AM BACKWINDER Patient is struggling to get around the house. He needs assitance getting in and out of the shower,putting his socks on etc..Patient mother say he needs physical therapy. WINDER documented in this encounter Plan of Treatment Not on file documented as of this encounter Visit Diagnoses Not on filedocumented in this encounter Care Teams Time Clock Repairer Relationship Specialty Start Date End Date Unknown, Notinfile PCP - General 04/30/23 06/05/23 Leo Manzano MD [address] [place] [address] Surgeon Vascular Surgery 05/16/23 documented as of this encounter
--- OUTSIDE RECORDS SUMMARY | 2024-05-30 05:39 | XMS_ITS | Encounter Summary ---
Author Organization [facility] Address [address] [place] [address] Phone Care Team Providers Care Automatic Fabric Cutter Name Role Phone Unknown, Notinfile Primary Care Provider Unavail able Leo Manzano MD Unavailable [phone] Reason for Referral * MRI/CAT/PET Scan (Routine) - Closed Specialty Diagnoses / Procedures Referred By Contac t Referred To Contact Radiology Diagnoses Dissection of thoracoabdominal aorta (CMS/HCC) (HCC) Procedures CTA Chest Abdomen Pelvis Leo Manzano MD [address] [facility] [address] [place] [address] Phone: tel: fax: [address] [address] Referral ID Status Reason Start Date Expiration Date Visits Re quested Visits Authorized [id number] Closed 07/19/2023 09/17/2023 1 1 SUPERVISOR Encounter Details Date Type Department Care Team (Late st Contact Info) Description 05/17/2023 Orders Only [facility] Surgery [address] 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) Social History Tobacco Use Types Packs/Day Years Used Date Smoking Tobacco: Never Smokeless Tobacco: Never Personal Safety Answer Date Recorded Getting School Help Needed Denies 05/09 Sex and Gender Information Value Date Recorded Sex Assigned at Not on file Legal Sex Male 3:42 AM SITE SUPERVISOR Gender Identity Not on file Sexual Orientation Straight 06/12/2023 11 :43 PM SITE SUPERVISOR documented as of this encounter Plan of Treatment Not on file documented as of this encounter Results * CTA Chest Abdomen Pelvis (08/03/2023 1:22 PM SITE SUPERVISOR) Anatomical Region Laterality Modality Body N/A Computed Tomogra phy 08/03/2023 2:43 PM SITE SUPERVISOR Impressions 08/03/2023 4:11 PM SITE SUPERVISOR 1. ??Unchanged thoracoabdominal aortic dissection managed with [...] Monster Easley M.D. Narrative 08/03/2023 4:11 PM SITE SUPERVISOR EXAMINATION: ??CTA CHEST ABDOMEN PELVIS HISTORY: Aortic [...] MD IMG CT PROCEDURES Final Re sult documented in this encounter Visit Diagnoses Diagnosis Dissection of thoracoabdominal aorta (CMS/HCC) (HCC)- Primary Dissection of thoracoabdominal aorta (CMS/HCC) (HCC) documented in this encounter Care Teams Automatic Fabric Cutter Relationship Specialty Start Date End Date Unknown, Notinfile PCP - General 04/30/23 06/05/23 Leo Manzano MD [address] [place] [address] Surgeon Vascular Surgery 05/16/23 documented as of this encounter
--- OUTSIDE RECORDS SUMMARY | 2024-05-30 05:39 | XMS_ITS | Encounter Summary ---
Author Organization [facility] Address [address] [place] [address] Phone Care Team Providers Care Billet Sawyer Name Role Phone Unknown, Notinfile Primary Care Provider Unavail able Leo Manzano MD Unavailable [phone] Encounter Details Date Type Department Care Team (Late st Contact Info) Description 05/19/2023 Orders Only [facility] Vascular Surgery [address] [facility] [address] [place] [address] Leo Manzano MD [address] [facility] [address] [place] [address] 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); Aftercare following surgery of the circulatory system Social History Tobacco Use Types Packs/Day Years Used Date Smoking Tobacco: Never Smokeless Tobacco: Never Personal Safety Answer Date Recorded Getting School Help Needed Denies 05/09 Sex and Gender Information Value Date Recorded Sex Assigned at Not on file Legal Sex Male 3:42 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 Gender Identity Not on file Sexual Orientation Straight 06/12/2023 11 :43 PM POWDERMAN documented as of this encounter Plan of Treatment Not on file documented as of this encounter Visit Diagnoses Diagnosis 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
--- OUTSIDE RECORDS SUMMARY | 2024-05-30 05:39 | XMS_ITS | Encounter Summary ---
Author Organization [facility] Healthcare Address [address] [place] [address] Care Team Providers Care Online Project Manager Name Role Phone Unknown, Notinfile Primary Care Provider Unavail able Leo Manzano MD Unavailable [phone] Reason for Visit * Reason Comments Post-op Problem * Auth/Cert (Routine) Specialty Diagnoses / Procedures Referred By Contac t Referred To Contact Diagnoses Dissection of abdominal aorta (CMS/HCC) (HCC) Procedures NA Referral ID Status Reason Start Date Expiration Date Visits Re quested Visits Authorized [id number] 1 1 Encounter Details Date Type Department Care Team (Late st Contact Info) Description 06/05/2023 10:00 AM WALL SCRAPER - 06/05/2023 2:15 PM WALL SCRAPER Surgery [facility] Operating Room [address] [place] [address] Nikhil Samuel MD [address] [place] [address] Thoracic Endovascular Repair - Aortic Surgery Details Date/Time Status Location OR Service Patient Class Case Cl ass Case Type Trauma Case? 06/05/2023 10:00 AM Posted [facility] OR POD 3 314 Vascular Emergency Urgent - 3 hours Panel 1 Procedure LRB Anes Op Region Wound Class Comments Thoracic Endovascular Repair - Aortic N/A General Ch est Class I - Clean Surgeon Surgeon Role Service Panel Nikhil Samuel MD Primary Vascular 1 Rosey Fine MD Fellow Vascular 1 Shaista Gonsalves MD Resident - Assisting Gener al Surgery 1 documented in this encounter Social History Tobacco Use Types Packs/Day Years Used Date Smoking Tobacco: Never Smokeless Tobacco: Never Personal Safety Answer Date Recorded Getting School Help Needed Denies 05/09 Sex and Gender Information Value Date Recorded Sex Assigned at Not on file Legal Sex Male 3:42 AM WALL SCRAPER Gender Identity Not on file Sexual Orientation Straight 06/12/2023 11 :43 PM WALL SCRAPER documented as of this encounter Last Filed Vital Signs Vital Sign Reading Time Taken Comments Blood Pressure 110/56 06/05/2023 9:16 AM WALL SCRAPER Pulse 90 06/05/2023 2:15 PM WALL SCRAPER Temperature 36.3 ??C (97.4 ??F) 06/05/2023 1:45 PM CS T Respiratory Rate 15 06/05/2023 2:15 PM WALL SCRAPER Oxygen Saturation 99% 06/05/2023 2:15 PM WALL SCRAPER Inhaled Oxygen Concentration - - Weight 100.4 kg (221 lb 5.5 oz) 06/04/2023 6:00 AM WALL SCRAPER Height 175.3 cm (5' 9 ) 06/04/2023 1:05 AM WALL SCRAPER Body Mass Index 32.78 06/04/2023 1:05 AM WALL SCRAPER documented in this encounter Discharge Summaries * Shannon Bran CONTINUOUS PROCESS TANNER ROTARY DRUM - 06/09/2023 2:44 PM CST Inpatient Discharge Summary BRIEF OVERVIEW Admitting Provider: Nikhil Samuel MD Discharge Provider: Nikhil Samuel MD Primary Care Physician at Discharge: Carl Strickland MD [phone] Admission Date: 06/03/2023 Discharge Date: 06/11/2023 Admission Location: [facility] Problems/Diagnoses: Principal Problem: Dissection of abdominal aorta [...] Provider Department Center 06/21/2023 1:00 PM Lydia Barillas NP [facility] [place] 06/22/2023 1:[address] [facility] Main 06/22/2023 3:00 PM Leo Manzano MD [facility] [id number] [place] Cosigned by Nikhil Samuel MD at 06/21/2023 11:39 AM WALL SCRAPER SCRAPER SCRAPER documented in this encounter Medications at Time [...] 3 (three) times a day 90 capsule 3 06/25/19 24 hydrALAZINE (APRESOLINE) 25 mg [...] hours as needed for pain 20 tablet 06/25/19 24 polyethylene glycol (MIRALAX) 17 gram/dose bulk powderIndications:c onstipation Take 17 g by mouth daily as needed (constipation) 3 06/25/19 24 QUEtiapine (SEROquel) 50 mg tablet Take 1 tablet (50 mg total) by mouth nightly 30 tablet 3 08/24/19 24 tamsulosin (FLOMAX) 0.4 mg extended release capsule Take 1 capsule (0.4 mg total) by mouth daily 30 capsule 06/25/19 24 documented as of this encounter [...] Lab Units 06/11/23 0321 06/10/23 0524 06/08/23 205 HEMOGLOBIN g/dL 10.2* 10.7* 9.6* HEMATOCRIT % [...] will recommend genetic testing as an outpatient SCRAPER * Bettie Wheeler NP - 06/10/2023 2:49 PM CST Vascular Surgery Daily Progress Patient Name/MRN: Eriberto Chau [id number] Treatment Team: Vascular Surgery- Pager: Attending: Nikhil Samuel MD Today's Date: 06/10/2023 Room/Bed: [id number] Admit Date: 06/03/2023 Code Status: Full Code [...] tablet 1,000 mg 1,000 mg oral Q6H [facility] Sreekanth Armstrong NP 1,000 mg at 06/10/23 [...] BID Sreekanth Armstrong NP 100 mg at enoxaparin (LOVENOX) syringe 40 mg 40 mg subcutaneous Daily-2100 Sreekanth Armstrong NP 40 mg at 06/09/232022 gabapentin (NEURONTIN) capsule 300 mg 300 mg oral TID Sreekanth Armstrong NP 300 mg at 06/10/23714 hydrALAZINE (APRESOLINE) tablet 10 mg 10 mg oral TID PRN Bettie Wheeler NP methocarbamoL (ROBAXIN) tablet 750 mg 750 mg oral TID Sreekanth Armstrong NP 750 mg at 06/10/23 07 ondansetron (ZOFRAN) injection 4 mg 4 mg [...] 5 mg intravenous Q6H PRN Sreekanth Armstrong CONTINUOUS PROCESS TANNER ROTARY DRUM 5 mg at 06/07/23 0956 QUEtiapine (SEROquel) tablet 50 mg 50 mg oral Nightly Sreekanth Armstrong NP 50 mg at 06/09/23 2022 ramelteon (ROZEREM) tablet 8 mg 8 mg [...] dinner Sreekanth Armstrong NP 0.8 mg at 06/09/23 1740 Objective Vitals: [...] Dr. Abarca as outpatient for genetics testing. [facility] Patient Centered Goal for Treatment: to go home and not come back Agree with patient centered goal: yes For patients or family members viewing this note through [employer] programs: This note was written as a [...] Nikhil Samuel MD at 06/21/2023 11:39 AM WALL SCRAPER SCRAPER SCRAPER * Ana Laura Starr RD - 06/09/2023 [...] POC -- -- -- < > -- [id number] mL/min/1.73 m2 >90 >90 >90 < > [...] Adult Diet Regular Diet effective now Question: ([facility]) Diet type Answer: Regular 06/06/23 1429 Allergies: Reviewed. IMPRESSION: 06/09 - RD screened pt per MST score of 3. Pt reports eating less after may 16, 2023 - was eating only jello and McChicken. Reports having N/V/D EXTERIOR WORK HELPER, but denies it during the hospital stay. [...] depth pinch but not ample Muscle Loss [place] - Temporalis Muscle: Slight depression Clavicle [...] I/O Ana Laura Starr MS, RD, LD [facility] SCRAPER * Shannon Bran NP - 06/09/2023 11:45 AM CST Vascular Surgery Daily Progress Patient Name/MRN: Eriberto Chau [id number] Treatment Team: Vascular Surgery- Pager: Attending: Nikhil Samuel MD Today's Date: 06/09/2023 Room/Bed: [id number] Admit Date: 06/03/2023 Code Status: Full Code [...] tablet 1,000 mg 1,000 mg oral Q6H [facility] Sreekanth Armstrong NP 1,000 mg at 06/09/23 [...] Daily-2100 Sreekanth Armstrong NP 40 mg at 06/08/232038 [...] or family members viewing this note through [employer] programs: This note was written as a [...] Nikhil Samuel MD at 06/21/2023 11:39 AM WALL SCRAPER SCRAPER SCRAPER * Dank Garcia - 06/09/2023 11:40 AM [...] treatment team and contact the PT or EXTERIOR WORK HELPER currently assigned to this patient. If a physical therapy clinician is not assigned to this patient, please call [phone]. 06/09/23 1140 PT Last Visit Session Type Treatment (Discharge) PT Received On 06/09/23 Safe Environment Arm band checked;Patient found sitting in chair;Session completed bedside;Gait belt utilized for all out of bed mobility Subjective Agreeable to Therapy Family/Caregiver Present Yes (Family) Precautions Precautions None Activity Tolerance Activity Tolerance Comments [place]: [place] 04/18 Pain Assessment Pain Assessment 0-10 Pain [...] Safety Other Activities Other Activities Comments [place]: [place] 04/18 Bed Mobility Bed Mobility No Transfers [...] treatment team and contact the PT or EXTERIOR WORK HELPER currently assigned to this patient. If a physical therapy clinician is not assigned to this patient, please call [phone]. Cosigned by Otoniel Dow, PT at 06/09/2023 12:49 PM WALL SCRAPER SCRAPER SCRAPER * Joaquín Abarca MD - 06/09/2023 10:54 [...] Lying Pulse: 94 93 87 99 Resp: 16 22 20 Temp: 36.7 ??C (98 ??F) 36.4 ??C [...] will recommend genetic testing as an outpatient SCRAPER * Mary Mascorro OT - 06/09/2023 10:43 AM CST Occupational [...] of Steps 3 Prior Function Level of Tift Independent with ADLs;Independent functional transfers;Independent with ambulation;Independent with homemaking with ambulation Lives With Significant other;Mother (7 kids) Receives Help From Spouse/Significant other;Family (time clock mechanic) ADL ADLS (WDL) X Grooming Grooming: Where [...] being interested in some outpatient therapy for asharance building-PT notified. Daily Activity - 6 Clicks [...] position in room with call light withinreach. SCRAPER * Cristobal Chopra MD - 06/08/2023 8:36 PM CST Vascular Surgery ICU accept note Patient Name/MRN: Eriberto Chau [id number] Treatment Team: Vascular Surgery- Pager: [phone] Attending: Nikhil Samuel MD Today's Date: 06/08/2023 Room/Bed: [id number] Admit Date: 06/03/2023 Code Status: Full Code [...] tablet 1,000 mg 1,000 mg oral Q6H [facility] Sreekanth Armstrong NP 1,000 mg at 06/08/23 [...] dinner) Sreekanth Armstrong NP 25 mg at 06/08/23820 docusate sodium (COLACE) capsule 100 mg 100 [...] tablet 50 mg 50 mg oral TID Srekeanth Armstrong NP HYDROmorphone (DILAUDID) injection 0.5 mg [...] B aortic dissection who underwent placement of [place] TBE on 05/02/23 who presents with abdominal [...] Nikhil Samuel MD at 06/21/2023 11:39 AM WALL SCRAPER SCRAPER SCRAPER SCRAPER * Kathryn Granger MD - 06/08/2023 11:21 AM CST Vascular Surgery Daily Progress Patient Name/MRN: Eriberto Chau [id number] Treatment Team: Vascular Surgery- Pager: [phone] Attending: Nikhil Samuel MD Today's Date: 06/08/2023 Room/Bed: [place] [id number]/[id number] Admit Date: 06/03/2023 Code Status: Full Code [...] B aortic dissection who underwent placement of [place] TBE on 05/02/23 who presents with abdominal [...] removal Kathryn Granger Vascular Surgery Fellow Pager: [phone] Cosigned by Nikhil Samuel MD at 06/08/2023 4:22 PM WALL SCRAPER SCRAPER SCRAPER * Priscilla Chacon DPT - 06/08/2023 8:29 AM CST Physical Therapy [...] No Prior Function Prior Function Level of Tift: Independent with ADLs, Independent functional transfers, Independent with ambulation Lives With: Spouse (children) Receives Help From: Spouse/Significant other, Family (time signal wirer) Driving: Yes 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 This time was in addition [...] Mehul Brooks MD at 06/15/2023 8:25 AM WALL SCRAPER SCRAPER SCRAPER SCRAPER * Roldan Campbell PA - 06/07/2023 7:53 [...] drain in place 06/07: Lumbar drain removed, 10/01 strength to BLE Objective Medications: Scheduled Meds:acetaminophen, [...] Susan tylenol, Lopez, Robaxin - Stop Dilaudid WELDER TOOL AND DIE - Start PO Oxy q4 Insomnia Nightmares Likely 2/2 frequent interruptions and hx of intense nightmares - Seroquel - Sleep Hygiene - Decrease interruptions Type B Aortic Dissection S/p [place] TBE stent Graft (05/02) Hypertension S/p TEVAR [...] plan with the ICU team and other medical/technology consultant staff, making frequent assessments and decisions [...] Mehul Brooks MD at 06/15/2023 8:28 AM WALL SCRAPER SCRAPER SCRAPER * Kathryn Granger MD - 06/07/2023 4:01 PM CST Vascular Surgery Daily Progress Patient Name/MRN: Eriberto Chau [id number] Treatment Team: Vascular Surgery- Pager: [phone] Attending: Nikhil Samuel MD Today's Date: 06/07/2023 Room/Bed: [id number] Admit Date: 06/03/2023 Code Status: Full Code [...] B aortic dissection who underwent placement of [place] TBE on 05/02/23 who presents with abdominal [...] today Kathryn Granger Vascular Surgery Fellow Pager: [phone] Cosigned by Nikhil Samuel MD at 06/08/2023 4:22 PM WALL SCRAPER SCRAPER SCRAPER * Sreekanth Armstrong NP - 06/07/2023 6:19 AM CSTAssociated Order(s): Critical Care Post-Procedure Diagnose(s): Dissection of abdominal aorta (CMS/HCC) ([facility] CT ICU Daily Progress Shifts: NPP Shift [...] [Urine:565] Intake/Output Summary (Last 24 hours) at 06/07/2023618 Last data filed at 06/07/2023 0600 Gross [...] Susan tylenol, Lopez, Robaxin - Stop Dilaudid WELDER TOOL AND DIE - Start PO Oxy q4 Insomnia Nightmares Likely 2/2 frequent interruptions and hx of intense nightmares - Seroquel - Sleep Hygiene - Decrease interruptions Type B Aortic Dissection S/p [place] TBE stent Graft (05/02) Hypertension S/p TEVAR [...] Hold on PO antihypertensives w/ hx Sreekanth Afshin Fender, CONTINUOUS PROCESS TANNER ROTARY DRUM Critical Care Performed by: Sreekanth Armstrong NP [...] plan with the ICU team and other medical/technology consultant staff, making frequent assessments and decisions [...] Mehul Brooks MD at 06/15/2023 8:25 AM WALL SCRAPER SCRAPER SCRAPER SCRAPER * Benny Isaacs NP - 06/06/2023 6:30 PM CSTAssociated Order(s): [...] Infusions:clevidipine, 0-32 mg/hr, Last Rate: 16 mg/hr (06/07/23) HYDROmorphone, , Last Rate: Stopped (06/07/23 0126) [...] scheduled Tylenol, Robaxin and Gabapentin - Dilaudid WELDER TOOL AND DIE; 0.5mg q10 min CV: # Type B Aortic Dissection s/p [place] TBE stent graft 05/02 # C/f progression [...] plan with the ICU team and other medical/technology consultant staff, making frequent assessments and decisions [...] Mehul Brooks MD at 06/15/2023 8:24 AM WALL SCRAPER SCRAPER SCRAPER * Kathryn Granger MD - 06/06/2023 10:08 AM CST Vascular Surgery Daily Progress Patient Name/MRN: Eriberto Chau [id number] Treatment Team: Vascular Surgery- Pager: [phone] Attending: Nikhil Samuel MD Today's Date: 06/06/2023 Room/Bed: [place] 235[address]/[id number] Admit Date: 06/03/2023 Code Status: Full Code Subjective Chief complaint: Abdominal Pain Events During This Hospitalization: 06/03/23: Admitted to CTICU for impulse control Events Over Last 24 Hours: OR yesterday for TEVAR and placement of dissection stent Abdominal pain resolved Some tenderness at L groin access site 10/01 strength BLEs Objective Vitals: 24hr Min/Max: Temp [...] B aortic dissection who underwent placement of [place] TBE on 05/02/23 who presents with abdominal [...] >10 Kathryn Granger Vascular Surgery Fellow Pager: [phone] Cosigned by Nikhil Samuel MD at 06/08/2023 4:22 PM WALL SCRAPER SCRAPER SCRAPER * Sheila Winters NP - 06/06/2023 7:00 AM CSTAssociated Order(s): [...] AM Result Value Ref Range Product code S7393C39 Unit Number [id number] Product Blood Type APOS Dispense Status PRESUMED TRANSFUSED Product code P6683V98 Unit Number [id number] Product Blood Type APOS Dispense Status PRESUMED TRANSFUSED Product code H8666P73 Unit Number [id number] Product Blood Type APOS Dispense Status CROSSMATCHED Product code P6920Z16 Unit Number [id number] Product Blood Type APOS Dispense Status PRESUMED [...] (H) 123 - 168 sec POC Performer [id number] POC Device Number [id number] POCT Activated clotting time, low range Collection Time: 06/05/23 11:49 AM Result Value Ref Range ACT 244 (H) 123 - 168 sec POC Performer [id number] POC Device Number [id number] POCT Activated clotting time, low range Collection Time: 06/05/23 12:29 PM Result Value Ref Range ACT 219 (H) 123 - 168 sec POC Performer [id number] POC Device Number [id number] POCT Activated clotting time, low range Collection Time: 06/05/23 12:42 PM Result Value Ref Range ACT 150 123 - 168 sec POC Performer [id number] POC Device Number [id number] CBC with auto differential Collection Time: 06/05/23 [...] scheduled Tylenol, Robaxin and Gabapentin - Dilaudid WELDER TOOL AND DIE; 0.5mg q10 min - Pain goal < 4 CV: #Type B Aortic Dissection s/p [place] TBE stent graft 05/02 #C/f progression of [...] drain - Add acapella therapy QID per PODIATRIC FOOT AND ANKLE SPECIALIST - Daily CXR GI: Diet: CLD, ADAT [...] reviewed with fellow and attending [facility] 06/06/2023 Critical Care Performed by: Sheila Winters [...] plan with the ICU team and other medical/technology consultant staff, making frequent assessments and decisions [...] Mehul Brooks MD at 06/15/2023 8:25 AM WALL SCRAPER SCRAPER SCRAPER * Benny Isaacs NP - 06/05/2023 6:37 [...] 0-32 mg/hr, Last Rate: 9 mg/hr (06/06/23 050) HYDROmorphone, , Last Rate: 0 mg/hr (06/05/23924) Lactated Ringer's, 10 mL/hr, Last Rate: 10 mL/hr (06/06/23 050) sodium chloride 0.9%, 3-12 mL/hr, Last Rate: 3 mL/hr (06/06/23 050) PRN Meds:. sodium chloride 0.9% sodium chloride [...] AM Result Value Ref Range Product code R3706Q36 Unit Number [id number] Product Blood Type APOS Dispense Status PRESUMED TRANSFUSED Product code F9007K64 Unit Number [id number] Product Blood Type APOS Dispense Status PRESUMED TRANSFUSED Product code Y5464L43 Unit Number [id number] Product Blood Type APOS Dispense Status CROSSMATCHED Product code A5486Y98 Unit Number [id number] Product Blood Type APOS Dispense Status PRESUMED [...] (H) 123 - 168 sec POC Performer [id number] POC Device Number [id number] POCT Activated clotting time, low range Collection Time: 06/05/23 11:49 AM Result Value Ref Range ACT 244 (H) 123 - 168 sec POC Performer [id number] POC Device Number [id number] POCT Activated clotting time, low range Collection Time: 06/05/23 12:29 PM Result Value Ref Range ACT 219 (H) 123 - 168 sec POC Performer [id number] POC Device Number [id number] POCT Activated clotting time, low range Collection Time: 06/05/23 12:42 PM Result Value Ref Range ACT 150 123 - 168 sec POC Performer [id number] POC Device Number [id number] CBC with auto differential Collection Time: 06/05/23 [...] scheduled Tylenol, Robaxin and Gabapentin - Dilaudid WELDER TOOL AND DIE; 0.5mg q10 min CV: # Type B Aortic Dissection s/p [place] TBE stent graft 05/02 # C/f progression [...] plan with the ICU team and other medical/technology consultant staff, making frequent assessments and decisions [...] Mehul Brooks MD at 06/15/2023 8:24 AM WALL SCRAPER SCRAPER SCRAPER * Georgia Rivera, PT - 06/05/2023 9:25 AM CST Physical Therapy 06/05/23 0925 General PT Missed Visit Reason Procedure/testing/appointment (scheduled for OR this date) Recommendation/Plan PT Frequency during current admission Monitor status PT - Next Appointment 06/07/23 SCRAPER * Heber Randolph MD - 06/05/2023 9:03 AM CST Vascular Surgery Daily Progress Patient Name/MRN: Eriberto Chau [id number] Treatment Team: Vascular Surgery- Pager: [phone] Attending: Alonzo Duncan MD Today's Date: 06/05/2023 Room/Bed: [id number] Admit Date: 06/03/2023 Code Status: Full Code [...] B aortic dissection who underwent placement of [place] TBE on 05/02/23 who presents with abdominal [...] procedure. Heber Randolph MD Vascular Surgery Fellow [phone] (this is a pager, please leave a callback number) Vascular Consults: Vascular Floor/CONTINUOUS PROCESS TANNER ROTARY DRUM: Problem List Cardiac and Vasculature * (Principal) Dissection of abdominal aorta (CMS/HCC) (HCC) - Primary Relevant Orders Insert arterial line (Completed) Case Request Operating Room: TEVAR - Thoracic Endovascular Repair (Completed) Critical Care (Completed) Case Request Operating Room: Thoracic Endovascular Repair - Aortic (Completed) CV Hybrid Room (Default Orderable) For patients or family members viewing this note through [employer] programs: This note was written as a [...] Alonzo Duncan MD at 06/06/2023 7:26 AM WALL SCRAPER SCRAPER SCRAPER * Sheila Winters NP - 06/05/2023 6:40 [...] scheduled Tylenol, Robaxin and Gabapentin - Dilaudid WELDER TOOL AND DIE; 0.5mg q10 min - Pain goal < 4 CV: #Type B Aortic Dissection s/p [place] TBE stent graft 05/02 #C/f progression of [...] reviewed with fellow and attending Tana Winters [facility] 06/05/2023 Critical Care Performed by: Sheila Winters NP [...] plan with the ICU team and other medical/technology consultant staff, making frequent assessments and decisions [...] Mehul Brooks MD at 06/15/2023 8:25 AM WALL SCRAPER SCRAPER SCRAPER SCRAPER SCRAPER * Benny Isaacs NP - 06/04/2023 6:46 [...] esmolol, 0-300 mcg/kg/min, Last Rate: 300 mcg/kg/min (06/04/232234) furosemide, 10 mg/hr, Last Rate: 10 mg/hr (06/04/232133) HYDROmorphone, Lactated Ringer's, 10 mL/hr, Last Rate: [...] scheduled Tylenol, Robaxin and Gabapentin - Dilaudid WELDER TOOL AND DIE; 0.5mg q10 min CV: # Type B Aortic Dissection s/p [place] TBE stent graft 05/02 # C/f progression [...] plan with the ICU team and other medical/technology consultant staff, making frequent assessments and decisions [...] Mehul Brooks MD at 06/15/2023 8:24 AM WALL SCRAPER SCRAPER SCRAPER * Heber Randolph MD - 06/04/2023 5:11 PM CST Vascular Surgery Daily Progress Patient Name/MRN: Eriberto Chau [id number] Treatment Team: Vascular Surgery- Pager: [phone] Attending: Alonzo Duncan MD Today's Date: 06/04/2023 Room/Bed: [id number] Admit Date: 06/03/2023 Code Status: Prior Subjective [...] B aortic dissection who underwent placement of [place] TBE on 05/02/23 who presents with abdominal [...] care Heber Randolph MD Vascular Surgery Fellow [phone] (this is a pager, please leave a callback number) Vascular Consults: Vascular Floor/CONTINUOUS PROCESS TANNER ROTARY DRUM: Problem List Cardiac and Vasculature * (Principal) Dissection of abdominal aorta (CMS/HCC) (HCC) - Primary Relevant Orders Insert arterial line (Completed) For patients or family members viewing this note through [employer] programs: This note was written as a [...] Alonzo Duncan MD at 06/06/2023 7:26 AM WALL SCRAPER SCRAPER SCRAPER documented in this encounter H&P Notes * [...] #Post-surgical pain -Home gabapentin -Home robaxin -Dilaudid WELDER TOOL AND DIE, transition to PO medications when able ICU Checklist Feeding: NPO DVT ppx: Hold pharmacological ppx until operative plan determined, SCDs Glycemic control: No prior history of diabetes, not indicated at this time Ulcer ppx: None indicated LDA: Right radial a-line, PIV x2 Cosigned by Mehul Brooks MD at 06/15/2023 8:35 AM WALL SCRAPER SCRAPER SCRAPER SCRAPER documented in this encounter Procedure Notes * Carline eJrome MD - 06/07/2023 2:45 PM CST Procedures [...] procedure as documented. Carline Jerome MD 06/07/2022 SCRAPER SCRAPER * Sherlyn Alicea MD - 06/04/2023 1:26 AM CSTAssociated Order(s): Arterial Line Insertion Post-Procedure Diagnose(s): Dissection of abdominal aorta (CMS/HCC) (HCC) Arterial Line Insertion Date/Time: 06/04/2023 1:26 AM Performed by: Michael Hamm MD Authorized by: Mehul Brooks MD [place] Protocol: RN Notified of Procedure: yes Informed consent: Risks, benefits, alternatives discussed and patient/asset protection representative/guardian agrees and accepts Patient's stated name/ [...] Mehul Brooks MD at 06/15/2023 8:35 AM WALL SCRAPER SCRAPER SCRAPER SCRAPER documented in this encounter Consult Notes * [...] Amoxicillin MEDICATIONS acetaminophen, 1,000 mg, oral, Q6H SUSAN docusate sodium, 100 mg, oral, BID gabapentin, 300 mg, oral, TID methocarbamoL, 750 mg, oral, TID polyethylene glycol, 17 g, oral, BID potassium chloride ER, 40 mEq, oral, Once potassium, sodium phosphates, 2 packet, oral, TID AC QUEtiapine, 50 mg, oral, Nightly senna, 1 tablet, oral, BID sodium chloride 0.9%, 0.5-20 mL, intra-catheter, Q8H [facility] tamsulosin, 0.8 mg, oral, Daily with dinner PAST MEDICAL HISTORY Positive for hypertension. Positive for type B aortic dissection status post endovascular repair [id number] status post repeat endovascular repair with another [...] 06/07/2023 0930 Last data filed at 06/07/2023 09 Gross per 24 hour Intake 2379.9 ml [...] this as an outpatient. Joaquín Abarca MD SCRAPER * Shana Tillman, RD - 06/04/2023 3:39 PM CSTAssociated Order(s): [...] POC -- -- -- < > -- [id number] mL/min/1.73 m2 61 55* 89 -- 85 [...] care, Diet advancement Shana Tillman RD, LD, [facility] [phone] NSS Oncall/Weekend SCRAPER * Brynn Lazo MD - 06/03/2023 10:30 PM CST Vascular Surgery Consultation Patient Name/MRN: Eriberto Chau [id number] Treatment Team: Vascular Surgery- Reason for Consult: increase false lumen size, known thoracic dissection Attending: Alonzo Duncan MD Today's Date: 06/04/2023 Admitting Service: Vascular Admitting location: [place] [id number] Admit Date: 06/03/2023 Code Status: Prior CC: [...] steadily rising, with SBPs around 150s over Senthil and up to 180s-190s in the last [...] tablet 1,000 mg 1,000 mg oral Q6H [facility] Sherlyn Alicea MD 1,000 mg at 06/04/23 [...] mg 100 mg feeding tube BID Sherlyn Alicae MD esmolol in 0.9% sodium chloride (BREVIBLOC) [...] BID Sherlyn Alicea MD 1 tablet at 06/04/23 0045 Or senna 1.76 mg/mL syrup 8.8 mg [...] surgery will continue to follow. Please call [phone] with vascular consult questions 20/12. Cosigned by Alonzo Duncan MD at 06/06/2023 7:25 AM WALL SCRAPER SCRAPER SCRAPER documented in this encounter Nursing Notes * Jessica Gambino RN - 06/07/2023 3:13 PM CST Lumbar drain removed by MD Jerome via bedside (see MD note). VO to monitor neurovascular, neuromotor, and drain site every hour x4 and to remain on bedrest with HOB flat. Care ongoing. SCRAPER SCRAPER SCRAPER SCRAPER * Jessica Gambino RN - 06/06/2023 4:20 [...] Pt denied headache, lightheadedness, vision changes, numbness/tingling. CONTINUOUS PROCESS TANNER ROTARY DRUM Vianey made aware of the situation. Care ongoing. SCRAPER SCRAPER * Shirley Horan RN - 06/05/2023 4:33 PM CST Pt returned to 5612 from [facility]. Spinal drain in place, draining clear fluid. Assessments as noted inflowsheets. Clevidipine restarted for Systolic 140-160. SCRAPER * Shirley Horan RN - 06/05/2023 1:20 [...] and special bed in place as prevention. SCRAPER documented in this encounter ED Notes * [...] Height Height Method Weight Weight Method 06/03/23 18006/04/23 0105 06/03/23 1808 06/04/23 0600 1.753 m [...] deficit present. Mental Status: He is alert. [facility] Medical Decision Making Assessment: 33 y.o. male [...] with voice recognition software. Occasional wrong-word or '[id number]' substitutions may have occurred due to the [...] bleeding By: Tressa Sorensen MD Time: 06/03 1845 Comment: ED attending-Franchesca. 33 male recently hospitalized [...] up esmolol and also adjust pain meds. [facility] plan to admit to CTICU By: Tressa [...] resident's note. Nona Herrera MD Resident 06/04/23 6137 Tressa Sorensen MD 06/06/23 1213 SCRAPER SCRAPER * Sreekanth Thomas RN - 06/03/2023 6:25 PM CST Bed: [facility] Expected date: Expected time: Means of arrival: Comments: Triage Sreekanth Thomas RN 06/03/23 1825 SCRAPER * Nicole Hoang RN - 06/03/2023 5:59 [...] chest pain/shortness of breath/urinary problems. GCS 15 SCRAPER documented in this encounter Miscellaneous Notes * [...] of the patient???s medical record. Sincerely, Tressa Hsieh Health Information Management SCRAPER * Plan of Care - Rita Braden [...] Summary: Plan of care discussed with patient. 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 Renal function stable. Blood pressure improved We will recommend genetic testing as an outpatient SCRAPER * Assessment & Plan Note - Joaquín Abarca MD - 06/11/2023 7:50 AM WALL SCRAPER Associated Problem(s): HTN (hypertension) Patient hypertensive. Recommend resuming hydralazine 25 mg 3 times a day. Continue the amlodipine and carvedilol. Follow-up blood pressure. The patient should have follow-up blood pressure when he leaves the hospital as well. SCRAPER * Subjective & Objective - Joaquín Abarca MD - 06/11/2023 7:48 AM WALL SCRAPER Cardiology Daily Progress Note Patient Name: Eriberto [...] Labs Lab Units 06/11/23 0321 06/10/23 0524 06/08/232052 HEMOGLOBIN g/dL 10.2* 10.7* 9.6* HEMATOCRIT % [...] stable. Creatinine stable. Potassium stable. Sodium stable. SCRAPER * Plan of Ann - Leticia Navas RN - 06/10/2023 9:17 [...] Remain free from falls Sleep hygiene Summary: Media Theorist And Author Of Patient Centered Goal for Treatment: to go home and not come back Agree with patient centered goal: yes SCRAPER * Plan of Care - Jill Dunn [...] Ability to cope will improve Outcome: Progressing SCRAPER * Plan of Care - Edel Sharp [...] informed about POC, will continue to monitor SCRAPER * Assessment & Plan Note - Shannon Bran NP - 06/09/2023 11:53 AM WALL SCRAPER Associated Problem(s): Dissection of thoracoabdominal aorta (CMS/HCC) (HCC) Presents with abdominal pain and concern for progression of dissection on CT - 06/05/23: OR s/p TEVAR extension and dissection stent placement - BP management per HTN - pain control - Q4 NV checks, Q2 VS - lovenox DVT ppx - He will f/u with Dr. Abarca as outpatient for genetics testing. SCRAPER SCRAPER SCRAPER * Assessment & Plan Note - Shannon Bran NP - 06/09/2023 11:43 AM WALL SCRAPER Associated Problem(s): HTN (hypertension) Goal systolic BP [...] Coreg increased 06/10. 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 Renal function stable. Blood pressure improved We will recommend genetic testing as an outpatient SCRAPER * Assessment & Plan Note - Joaquín Abarca MD - 06/09/2023 10:54 AM WALL SCRAPER Associated Problem(s): HTN (hypertension) Blood pressure well controlled at present. Medicines are being adjusted. Currently on carvedilol and hydralazine. A want to transition to amlodipine 5 mg a day to wean hydralazine, as tolerated, as 3 times a day medication can be difficult long-term SCRAPER * Subjective & Objective - Joaquín Abarca MD - 06/09/2023 10:34 AM WALL SCRAPER Cardiology Daily Progress Note Patient Name: Eriberto [...] Lying Pulse: 94 [phone] 87 99 Resp: 20 Temp: 36.7 ??C (98 ??F) 36.4 ??C [...] it. Electronically signed by: Monster Easley M.D. SCRAPER * Plan of Care - Nakita Mcbride LCSW - 06/09/2023 9:50 AM WALL SCRAPER Social Work attempted to follow up with patient regarding employment, financial assistance, and mental health resources. Patient was asleep and did not awaken when Social Work quietly stated his name. Social Work left resources on bedside table. Social Work available should patient have questions regarding resources. No further Social Work needs identified at this time. LIZZ Lott LCSW Please see [facility] for contact information. SCRAPER SCRAPER * Plan of Care - Jill Dunn RN - 06/09/2023 9:14 [...] Ability to cope will improve Outcome: Progressing SCRAPER * Plan of Care - Linda Betancourt RN - 06/09/2023 5:13 [...] improve to fullest extent possible Outcome: Progressing SCRAPER * Plan of Care - Alysa Barillas RRT - 06/08/2023 4:22 [...] ordered and continue to assess the patient. 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 Source: Medicaid Race: White/ Ethnicity: [...] members Parent Name/Contact Information: meron blankenship (Mother) [phone] Other Family Member Name/Contact Information: Mothers of the the patient's children Participation from Patient's Support System: Active/involved Do you have a Evangelical Preference or Affiliation?: Yes Preference/Affiliation : Worship Are there any Evangelical Practices that are important to maintain while admitted?: No Do you have Cultural Factors that are important to you?: No (06/08/231438) Strengths, Assets, Liabilities and Stressors: Strengths, Assets, Liabilities, and Stressors Strengths (Must Choose Two): Cultural/spiritual/amish and community involvement, Interpersonal relationships and supports,i.e., family, friends, peers, Exercising self-direction, Managing surrounding demands and opportunities Patient Assets: Access to services, Insured, Supportive family, Transportation, Use of Supports Hope and Strength during Difficult Times: The idea of going home Does Pt have access to Employee Assistance Program: No Patient Barriers : Financial difficulties Current Stressors: Housing, Loss of job/income, No income (06/08/231438) SDOH Transportation Needs: No Transportation Needs (06/08/2023) [...] More than three times a week Attends Evangelical Services: More than 4 times per year [...] endorsed anxiety- patient open to resources (06/08/23 7694) Risk to Self and Others: Risk to [...] Harm Another: Patient reports no history (06/08/23 1439) Predictive Model Details 22% Factor Value Calculated [...] B aortic dissection who underwent placement of [place] TBE on 05/02/23 who presents with abdominal [...] file but verbally nominated meron blankenship (Mother) [phone] as surrogate decision maker in the event [...] for discharge planning needs. Nakita Mcbride LCSW SCRAPER * Provider Query - Sreekanth Armstrong NP [...] of the patient???s medical record. Sincerely, Ayanna Brewer RN, BSN, CCDS Clinical Documentation Workers' Compensation Commissioner [facility] [email or web address] SCRAPER * Plan of Care - Roge Tolbert [...] checks, pain control, maintain stable hemodynmics Summary: SCRAPER * Plan of Care - Kindra Daniels, PODIATRIC FOOT AND ANKLE SPECIALIST - 06/07/2023 7:19 PM CST BRONCHIAL HYGIENE [...] RCS will continue to monitor and assess. SCRAPER * Plan of Care - Nakita Mcbride LCSW - 06/07/2023 10:20 AM WALL SCRAPER Social Work attempted to speak with patient at bedside regarding disability/FMLA and SDOH assessment due to 30 day readmission. Patient is currently unavailable. Social Work to try again later. LIZZ Lott, YI Please see [facility] for contact information. SCRAPER * Plan of Care - Jessica Gambino [...] Gambino, BRIA Outcome: Progressing 06/07/2023748 by Jessica Gambino RN [...] by Jessica Gambino RN Outcome: Progressing Problem: Health Behavior: Goal: Identification of resources available to assist in meeting health care needs will improve 06/07/2023748 by Jessica Gambino RN Outcome: Progressing 06/07/2023748 by Jessica Gambino RN Outcome: Progressing Problem: Sensory: Goal: Pain level will decrease 06/07/2023748 by Jessica Gambino, BRIA Outcome: Progressing 06/07/2023748 by Jessica Gambino RN Outcome: Progressing Problem: Health Behavior: Goal: Understanding of discharge needs will improve 06/07/2023748 by Jessica Gambino RN Outcome: Progressing 06/07/2023748 by Jessica Gambino RN Outcome: Progressing Problem: Lack of Knowledge: Goal: Ability to state ways to decrease the risk of falls will improve 06/07/2023748 by Jessica Gambino, BRIA Outcome: Progressing 06/07/2023748 by Jessica Gambino RN Outcome: Progressing Problem: Safety: Goal: Will remain free from falls 06/07/2023748 by Jessica Gambino RN Outcome: Progressing 06/07/2023748 by Jessica Gambino RN Outcome: Progressing Goal: Will remain free from injury from falls 06/07/2023748 by Jessica Gambino, BRIA Outcome: Progressing 06/07/2023748 by Jessica Gambino RN [...] Gambino RN Outcome: Progressing 06/07/2023748 by Jessica Gamibno RN Outcome: Progressing Goal: Ability to maintain [...] get pt OOBTCH as tolerated. Care ongoing. SCRAPER * Plan of Care - Nakita Mcbride LCSW - 06/06/2023 3:43 PM WALL SCRAPER Social Work attempted to meet with patient/mother regarding consult for FMLA/disability and SDOH assessment due to 22% and 30 day readmission. Patient/mother are currently with a provider and unable to participate in the conversation. Social Work to try again tomorrow. LIZZ Lott LCSW Please see [facility] for contact information. SCRAPER * Initial Assessments - Marlee Spears RN - 06/06/2023 3:08 PM WALL SCRAPER CM Initial Assessment Interview Note Information Obtained [...] Managed Medicaid Prescription Coverage: yes Pharmacy: [id number] - [place], [place] - [address] [facility] [address] [id number] - [place], [place] - [address] [facility] [address] Primary Care Provider: Carl Strickland MD - [...] to be Discharged to: Private residence, (06/06/23 150) Additional Information: Spoke with patient and his [...] may not have a qualifying need for nursing home and that his insurance likely doesn't cover [...] Collaboration with patient, MD, direct care nurse, Volunteer Assistant, and other members of the health care team to assure needed interventions completed. 2. Return patient to optimal level of self-care post discharge. 3. Carpet Measurer will follow for Discharge Planning - interventions [...] with the aftercare plan. Marlee Spears RN SCRAPER * Plan of Care - Jessica Gambino [...] with call light within reach. Care ongoing. SCRAPER * Plan of Care - Dalton Rubio [...] practiced pulm hygiene, pain is under control. SCRAPER * Brief Op Note - Rosey Fine MD - 06/05/2023 11:04 AM WALL SCRAPER Operative Progress Note Surgical Team: Surgeon(s) and Role: * Nikhil Samuel MD - Primary * Shaista Gonsalves MD - Resident - Assisting * Rosey Fine MD - Fellow Anesthesiologist: Ney Alex MD Bladder Blower: Marietta Su MD Excelsior Picker: Tim Napoles RN; Rafiq Damon RN Scrub: Christie Mann RN DATE OF SURGERY : 06/05/2023 [...] Implant Name Type Inv. Item Serial No. Engineer Chief Lot No. LRB No. Used Action [employer] CLSR PERCLOSE PROSTYLE SUT-MEDIATD CLOSURE-REPAIR SYS 50752-28 - [id number] VASCULAR DEVICE CLSR PERCLOSE PROSTYLE SUT-MEDIATD CLOSURE-REPAIR SYS 43158-05 [employer] [id number] Left 1 Implanted [employer] CLSR PERCLOSE PROSTYLE SUT-MEDIATD CLOSURE-REPAIR SYS 07345-66 - [id number] VASCULAR DEVICE CLSR PERCLOSE PROSTYLE SUT-MEDIATD CLOSURE-REPAIR SYS 45345-40 [employer] [id number] Left 1 Implanted [employer] Graft Stent [place] Tag L20cm Od37mm Thoracic Active Control [id number] - [id number] Stent [employer] Graft Stent [place] Tag L20cm Od37mm Thoracic Active Control [id number] Wl [place] [employer] N/A 1 Implanted [employer] ZENITH 36MM 20-30MM 16MM 180MM 9 DISSECTION INTRODUCER SHEATH [id number] - [id number] [employer] ZENITH 36MM 20-30MM 16MM 180MM 9 DISSECTION INTRODUCER SHEATH [id number] [employer] [id number] N/A 1 Implanted Blood/Blood Products Transfused: 1U [...] Nikhil Samuel MD at 06/08/2023 4:22 PM WALL SCRAPER SCRAPER SCRAPER * Plan of Care - Shirley Horan [...] Goals for the Shift: OR this morning SCRAPER * Op Note - Nikhil Samuel MD - 06/05/2023 10:00 AM CST OPERATIVE REPORT SURGEON Nikhil Samuel MD FOREMAN OR SUPERVISOR AND OPERATOR Rosey Fine MD ANESTHESIA: General PREOPERATIVE DIAGNOSIS [...] places with 2mm lumen. 37 x 200 [place] C tag was placed to cm to [...] serially dilated our tract up to 22 [place]. Intravascular ultrasound marked out the celiac artery. Aortogram was then performed. A 37 x 200 [place] C tag was introduced and deployed from [...] I was present for the entire procedure SCRAPER * Plan of Care - Eugene Barcenas [...] it consistently will improve 06/05/2023348 by Eugene Barcenas, RN [...] the pain will improve 06/05/2023348 by Eugene Barcenas, BRIA Outcome: Progressing 06/05/2023348 by Eugene Barcenas RN Outcome: Progressing Goal: Pain level will decrease 06/05/2023348 by Eugene Barcenas, RN Outcome: Progressing 06/05/2023348 by Eugene Barcenas RN Outcome: Progressing Problem: Activity: Goal: Ability to return to normal activity level will improve 06/05/2023348 by Eugene Barcenas, RN Outcome: Progressing 06/05/2023348 by Eugene Barcenas, RN Outcome: Progressing Problem: Lack of Knowledge: Goal: Knowledge of the prescribed therapeutic regimen will improve 06/05/2023348 by Eugene Barcenas RN Outcome: Progressing 06/05/2023348 by Eugene Barcenas, RN Outcome: Progressing Problem: Coping: Goal: Ability to cope will improve 06/05/2023348 by Eugene Barcenas, RN Outcome: Progressing 06/05/2023348 by Eugene Barcenas, RN Outcome: Progressing Problem: Health Behavior: Goal: Identification of resources available to assist in meeting health care needs will improve 06/05/2023348 by Eugene Barcenas, RN Outcome: Progressing 06/05/2023348 by Eugene Barcenas, RN Outcome: Progressing Problem: Sensory: Goal: Pain level will decrease 06/05/2023348 by Eugene Barcenas, RN Outcome: Progressing 06/05/2023348 by Eugene Barcenas, RN Outcome: Progressing Problem: Health Behavior: Goal: Understanding of discharge needs will improve 06/05/2023348 by Eugene Barcenas, RN Outcome: Progressing 06/05/2023348 by Eugene Barcenas, RN Outcome: Progressing Problem: Lack of Knowledge: Goal: Ability to state ways to decrease the risk of falls will improve 06/05/2023348 by Eugene Barcenas, RN Outcome: Progressing 06/05/2023348 by Eugene Barcenas, RN Outcome: Progressing Problem: Safety: Goal: Will remain free from falls 06/05/2023348 by Eugene Barcenas, RN Outcome: Progressing 06/05/2023348 by Eugene Barcenas, RN Outcome: Progressing Goal: Will remain free from injury from falls 06/05/2023348 by Eugene Barcenas, RN Outcome: Progressing 06/05/2023348 by Eugene Barcenas, RN Outcome: Progressing Goal: Will remain free from falls and injury in home environment 06/05/2023348 by Eugene Barcenas, RN Outcome: Progressing 06/05/2023348 by Eugene Barcenas, RN Outcome: Progressing SCRAPER * Plan of Care - Pooja Cameron RN - 06/04/2023 4:56 PM WALL SCRAPER Problem: Lack of Knowledge: Goal: Ability to [...] increases in labetalol doses and esmolol drip), WELDER TOOL AND DIE doses adjusted as well to help better control pain SCRAPER * ED Re-evaluation Note - Nigel Santos MD - 06/03/2023 10:43 PM WALL SCRAPER ED Re-evaluation TRANSITION OF CARE ED Course as of 06/03/23 8157 Time: 06/03 1826 Comment: 05/16/23 CT surgery [...] as well from prior study. Will ask vas surgery to get involved. Have started labetolol [...] up esmolol and also adjust pain meds. [facility] plan to admit to CTICU By: Tressa Sorensen MD Time: 06/03 2306 Comment: Has a ready bed for CTICU By: Tressa Sorensen MD No diagnosis found. Nigel Santos MD Resident 06/05/23 1831 SCRAPER * Significant Event - Brynn Lazo MD [...] for SBP <120, HR <60 Please call [phone] with any questions or concerns. Bari Phelps MD MPHS SCRAPER * ED Procedure Note - Tressa Sorensen [...] continuous cardiac monitored bed. Tressa Sorensen MD 06/03/232214 SCRAPER * ED Procedure Note - Michael Cortes [...] prior May 13 ECG Michael Cortes MD 06/03/231818 SCRAPER documented in this encounter Plan of Treatment Pending Results Name Type Priority Associated Diagnoses Date /Time Basic metabolic panel Lab Routine 10/2023 6:09 AM WALL SCRAPER Magnesium Lab Timed 06/04/2023 11: 59 PM WALL SCRAPER Phosphorus Lab Timed 06/04/2023 11: 59 PM WALL SCRAPER Basic metabolic panel Lab Routine 12/2023 12:06 AM WALL SCRAPER Lactate Lab Routine 06/08/2023 12: 03 AM WALL SCRAPER Basic metabolic panel Lab Routine 04/2024 5:24 AM WALL SCRAPER Scheduled Orders Name Type Priority Associated Diagnoses [...] Diagnosis Comments EGFR Routine 06/11/2023 3:21 AM WALL SCRAPER DIFFERENTIAL AUTO Routine 06/11/2023 3:21 AM WALL SCRAPER CBC WITH AUTO DIFFERENTIAL Routine 06/11/2023 3:21 AM WALL SCRAPER TYPE AND SCREEN Timed 06/11/2023 3:21 AM WALL SCRAPER PHOSPHORUS Routine 06/11/2023 3:21 AM WALL SCRAPER MAGNESIUM Routine 06/11/2023 3:21 AM WALL SCRAPER BASIC METABOLIC PANEL Routine 06/11/2023 3:21 AM WALL SCRAPER XR CHEST 1 VIEW Timed 06/10/2023 7:25 PM WALL SCRAPER CTA CHEST ABDOMEN PELVIS IP Routine 06/10/2023 8:33 AM WALL SCRAPER PEP THERAPY Routine 06/10/2023 8:00 AM WALL SCRAPER EGFR Routine 06/10/2023 5:24 AM WALL SCRAPER DIFFERENTIAL AUTO Routine 06/10/2023 5:24 AM WALL SCRAPER CBC WITH AUTO DIFFERENTIAL Routine 06/10/2023 5:24 AM WALL SCRAPER PHOSPHORUS Routine 06/10/2023 5:24 AM WALL SCRAPER MAGNESIUM Routine 06/10/2023 5:24 AM WALL SCRAPER BASIC METABOLIC PANEL Routine 06/10/2023 5:24 AM WALL SCRAPER XR CHEST 1 VIEW Timed 06/09/2023 6:36 PM WALL SCRAPER PEP THERAPY Routine 06/09/2023 6:00 PM WALL SCRAPER PEP THERAPY Routine 06/09/2023 1:00 PM WALL SCRAPER PEP THERAPY Routine 06/09/2023 8:00 AM WALL SCRAPER EGFR Timed 06/08/2023 8:53 PM WALL SCRAPER CBC WITHOUT DIFFERENTIAL Timed 06/08/2023 8:53 PM WALL SCRAPER PHOSPHORUS Routine 06/08/2023 8:53 PM WALL SCRAPER MAGNESIUM Routine 06/08/2023 8:53 PM WALL SCRAPER BASIC METABOLIC PANEL Timed 06/08/2023 8:53 PM WALL SCRAPER XR CHEST 1 VIEW IP Routine 06/08/2023 7:33 PM WALL SCRAPER PEP THERAPY Routine 06/08/2023 6:00 PM WALL SCRAPER PEP THERAPY Routine 06/08/2023 4:43 PM WALL SCRAPER PEP THERAPY Routine 06/08/2023 4:43 PM WALL SCRAPER PEP THERAPY Routine 06/08/2023 4:43 PM WALL SCRAPER CRITICAL CARE Routine 06/08/2023 7:32 AM WALL SCRAPER Dissection of abdominal aorta (CMS/HCC) (HCC) LACTATE Routine 06/08/2023 12:03 AM WALL SCRAPER EGFR Routine 06/08/2023 12:03 AM WALL SCRAPER CBC WITHOUT DIFFERENTIAL Routine 06/08/2023 12:03 AM WALL SCRAPER TYPE AND SCREEN Timed 06/08/2023 12:03 AM WALL SCRAPER PHOSPHORUS Routine 06/08/2023 12:03 AM WALL SCRAPER MAGNESIUM Routine 06/08/2023 12:03 AM WALL SCRAPER BASIC METABOLIC PANEL Routine 06/08/2023 12:03 AM WALL SCRAPER XR CHEST 1 VIEW IP Routine 06/07/2023 9:36 PM WALL SCRAPER CRITICAL CARE Routine 06/07/2023 7:53 PM WALL SCRAPER Dissection of thoracoabdominal aorta (CMS/HCC) (HCC) US LOWER EXTREMITY LEFT LIMITED Timed 06/07/2023 2:29 PM WALL SCRAPER CRITICAL CARE Routine 06/07/2023 6:19 AM WALL SCRAPER Dissection of abdominal aorta (CMS/HCC) (HCC) EGFR Routine 06/07/2023 12:11 AM WALL SCRAPER CBC WITHOUT DIFFERENTIAL Routine 06/07/2023 12:11 AM WALL SCRAPER PHOSPHORUS Routine 06/07/2023 12:11 AM WALL SCRAPER MAGNESIUM Routine 06/07/2023 12:11 AM WALL SCRAPER BASIC METABOLIC PANEL Routine 06/07/2023 12:11 AM WALL SCRAPER XR CHEST 1 VIEW IP Routine 06/06/2023 7:40 PM WALL SCRAPER CRITICAL CARE Routine 06/06/2023 6:30 PM WALL SCRAPER Dissection of abdominal aorta (CMS/HCC) (HCC) EGFR Timed 06/06/2023 8:14 AM WALL SCRAPER CBC WITHOUT DIFFERENTIAL Timed 06/06/2023 8:14 AM WALL SCRAPER BASIC METABOLIC PANEL Timed 06/06/2023 8:14 AM WALL SCRAPER CRITICAL CARE Routine 06/06/2023 7:00 AM WALL SCRAPER Dissection of abdominal aorta (CMS/HCC) (HCC) EGFR Routine 06/06/2023 12:06 AM WALL SCRAPER CBC WITHOUT DIFFERENTIAL Timed 06/06/2023 12:06 AM WALL SCRAPER PHOSPHORUS Routine 06/06/2023 12:06 AM WALL SCRAPER MAGNESIUM Routine 06/06/2023 12:06 AM WALL SCRAPER BASIC METABOLIC PANEL Routine 06/06/2023 12:06 AM WALL SCRAPER XR CHEST 1 VIEW Timed 06/05/2023 7:37 PM WALL SCRAPER CRITICAL CARE Routine 06/05/2023 6:37 PM WALL SCRAPER Dissection of abdominal aorta (CMS/HCC) (HCC) APTT STAT 06/05/2023 2:53 PM WALL SCRAPER PROTIME-INR STAT 06/05/2023 2:53 PM WALL SCRAPER EGFR STAT 06/05/2023 1:34 PM WALL SCRAPER DIFFERENTIAL AUTO STAT 06/05/2023 1:34 PM WALL SCRAPER CBC WITH AUTO DIFFERENTIAL STAT 06/05/2023 1:34 PM WALL SCRAPER PHOSPHORUS STAT 06/05/2023 1:34 PM WALL SCRAPER MAGNESIUM STAT 06/05/2023 1:34 PM WALL SCRAPER BASIC METABOLIC PANEL STAT 06/05/2023 1:34 PM WALL SCRAPER CV HYBRID ROOM (DEFAULT ORDERABLE) Routine 06/05/2023 1:15 PM WALL SCRAPER Dissection of abdominal aorta (CMS/HCC) (HCC) POCT ACTIVATED CLOTTING TIME, LOW RANGE Routine 06/05/2023 12:42 PM WALL SCRAPER POCT ACTIVATED CLOTTING TIME, LOW RANGE Routine 06/05/2023 12:29 PM WALL SCRAPER POCT ACTIVATED CLOTTING TIME, LOW RANGE Routine 06/05/2023 11:49 AM WALL SCRAPER TRANSFUSE RED BLOOD CELLS Routine 06/05/2023 11:36 AM WALL SCRAPER POCT ACTIVATED CLOTTING TIME, LOW RANGE Routine 06/05/2023 11:27 AM WALL SCRAPER POC BLOOD GAS AND CHEMISTRIES, ARTERIAL Routine 06/05/2023 11:19 AM WALL SCRAPER TRANSFUSE RED BLOOD CELLS Timed 06/05/2023 9:16 AM WALL SCRAPER TRANSFUSE RED BLOOD CELLS Timed 06/05/2023 8:21 AM WALL SCRAPER PREPARE RBC Timed 06/05/2023 7:54 AM WALL SCRAPER CRITICAL CARE Routine 06/05/2023 6:40 AM WALL SCRAPER Dissection of abdominal aorta (CMS/HCC) (HCC) EGFR Timed 06/05/2023 5:27 AM WALL SCRAPER LACTATE, WHOLE BLOOD Timed 06/05/2023 5:27 AM WALL SCRAPER CBC WITHOUT DIFFERENTIAL Timed 06/05/2023 5:27 AM WALL SCRAPER TRIGLYCERIDES Timed 06/05/2023 5:27 AM WALL SCRAPER PHOSPHORUS Routine 06/05/2023 5:27 AM WALL SCRAPER MAGNESIUM Routine 06/05/2023 5:27 AM WALL SCRAPER BASIC METABOLIC PANEL Timed 06/05/2023 5:27 AM WALL SCRAPER EGFR Timed 06/04/2023 11:59 PM WALL SCRAPER LACTATE, WHOLE BLOOD Timed 06/04/2023 11:59 PM WALL SCRAPER CBC WITHOUT DIFFERENTIAL Timed 06/04/2023 11:59 PM WALL SCRAPER PHOSPHORUS Timed 06/04/2023 11:59 PM WALL SCRAPER MAGNESIUM Timed 06/04/2023 11:59 PM WALL SCRAPER BASIC METABOLIC PANEL Timed 06/04/2023 11:59 PM WALL SCRAPER XR CHEST 1 VIEW IP Routine 06/04/2023 8:53 PM WALL SCRAPER CRITICAL CARE Routine 06/04/2023 6:46 PM WALL SCRAPER Dissection of abdominal aorta (CMS/HCC) (HCC) EGFR Timed 06/04/2023 5:33 PM WALL SCRAPER LACTATE, WHOLE BLOOD Timed 06/04/2023 5:33 PM WALL SCRAPER CBC WITHOUT DIFFERENTIAL Timed 06/04/2023 5:33 PM WALL SCRAPER BASIC METABOLIC PANEL Timed 06/04/2023 5:33 PM WALL SCRAPER US DOPPLER RENAL ARTERY LIMITED Critical/Life- Threatening 06/04/2023 12:27 PM WALL SCRAPER EGFR Timed 06/04/2023 11:37 AM WALL SCRAPER LACTATE, WHOLE BLOOD Timed 06/04/2023 11:37 AM WALL SCRAPER PROTIME-INR Timed 06/04/2023 11:37 AM WALL SCRAPER CBC WITHOUT DIFFERENTIAL Timed 06/04/2023 11:37 AM WALL SCRAPER BASIC METABOLIC PANEL Timed 06/04/2023 11:37 AM WALL SCRAPER EGFR Routine 06/04/2023 6:09 AM WALL SCRAPER LACTATE, WHOLE BLOOD Timed 06/04/2023 6:09 AM WALL SCRAPER CBC WITHOUT DIFFERENTIAL Timed 06/04/2023 6:09 AM WALL SCRAPER PHOSPHORUS Routine 06/04/2023 6:09 AM WALL SCRAPER MAGNESIUM Routine 06/04/2023 6:09 AM WALL SCRAPER BASIC METABOLIC PANEL Routine 06/04/2023 6:09 AM WALL SCRAPER BLOOD GAS, ARTERIAL STAT 06/04/2023 2:33 AM WALL SCRAPER APTT STAT 06/04/2023 1:54 AM WALL SCRAPER PROTIME-INR STAT 06/04/2023 1:54 AM WALL SCRAPER TYPE AND SCREEN STAT 06/04/2023 1:54 AM WALL SCRAPER MI ARTL CATHJ/CANNULJ MNTR/TRANSFUSION SPX PRQ Routine 06/04/2023 1:26 AM WALL SCRAPER Dissection of abdominal aorta (CMS/HCC) (HCC) LACTATE, WHOLE BLOOD Timed 06/04/2023 1:00 AM WALL SCRAPER EGFR STAT 06/04/2023 12:42 AM WALL SCRAPER CALCIUM, IONIZED STAT 06/04/2023 12:42 AM WALL SCRAPER CBC WITHOUT DIFFERENTIAL STAT 06/04/2023 12:42 AM WALL SCRAPER PHOSPHORUS STAT 06/04/2023 12:42 AM WALL SCRAPER MAGNESIUM STAT 06/04/2023 12:42 AM WALL SCRAPER BASIC METABOLIC PANEL STAT 06/04/2023 12:42 AM WALL SCRAPER MI CRITICAL CARE ILL/INJURED PATIENT INIT 30-74 MIN Routine 06/03/2023 10:14 PM WALL SCRAPER TROPONIN I HIGH-SENSITIVITY 4-HOUR Timed 06/03/2023 10:07 PM WALL SCRAPER LACTATE STAT 06/03/2023 10:07 PM WALL SCRAPER URINALYSIS AND REFLEX TO MICROSCOPIC STAT 06/03/2023 10:07 PM WALL SCRAPER URINALYSIS, MICROSCOPIC ONLY STAT 06/03/2023 10:07 PM WALL SCRAPER TROPONIN I HIGH-SENSITIVITY 2-HOUR Timed 06/03/2023 8:21 PM WALL SCRAPER CTA CHEST ABDOMEN PELVIS ED 06/03/2023 7:19 PM WALL SCRAPER POCUS RETROPERITONEAL (AAA OR RENAL) 06/03/2023 6:53 PM WALL SCRAPER POCT CREATININE - DEVICE Routine 06/03/2023 6:36 PM WALL SCRAPER TROPONIN I HIGH-SENSITIVITY SERIES (BASELINE, 2HR, 4HR, 6HR) STAT 06/03/2023 6:30 PM WALL SCRAPER EGFR STAT 06/03/2023 6:30 PM WALL SCRAPER DIFFERENTIAL AUTO STAT 06/03/2023 6:30 PM WALL SCRAPER CBC WITH AUTO DIFFERENTIAL STAT 06/03/2023 6:30 PM WALL SCRAPER LIPASE STAT 06/03/2023 6:30 PM WALL SCRAPER COMPREHENSIVE METABOLIC PANEL STAT 06/03/2023 6:30 PM WALL SCRAPER ECG 12-LEAD STAT 06/03/2023 6:18 PM WALL SCRAPER documented in this encounter Results * eGFR (06/11/2023 3:21 AM WALL SCRAPER) eGFR >90 >=60 mL/min/1. 73 m2 [facility] Comment: Interpretive Data Reference Interval [...] last reviewed 2021. Blood 06/11/2023 3:21 AM WALL SCRAPER 06/11/2023 3:32 AM WALL SCRAPER us Nikhil Samuel MD LAB BLOOD ORDERABLES Sally zhang Result [facility] [place] [address] * (ABNORMAL) Differential, auto (06/11/2023 3:21 AM WALL SCRAPER) Neutrophil abs 5.4 1.5 - 6.5 K/cumm [facility] Imm gran abs 0.1 0.0 - 0.1 K/cumm [facility] Lymphocyte abs 2.1 0.8 - 3.3 K/cumm [facility] Monocyte abs 1.1(H) 0.2 - 0.8 K/cumm [facility] Eosinophil abs 0.1 0.0 - 0.5 K/cumm [facility] Basophil abs 0.1 0.0 - 0.1 K/cumm [facility] Neutrophil pct 61.3 % [facility] Comment: Interpretive Data Percent cell count reference ranges are not reported, since discordance with absolute values may lead to misinterpretation of CBC data. Current Interpretive Data was last revised on 2017. Imm gran pct 0.8 % [facility] Comment: Interpretive Data Percent cell count reference ranges are not reported, since discordance with absolute values may lead to misinterpretation of CBC data. Current Interpretive Data was last revised on 2017. Lymphocyte pct 23.5 % [facility] Comment: Interpretive Data Percent cell count reference ranges are not reported, since discordance with absolute values may lead to misinterpretation of CBC data. Current Interpretive Data was last revised on 2017. Monocyte pct 13.0 % [facility] Comment: Interpretive Data Percent cell count reference ranges are not reported, since discordance with absolute values may lead to misinterpretation of CBC data. Current Interpretive Data was last revised on 2017. Eosinophil pct 0.8 % [facility] Comment: Interpretive Data Percent cell count reference ranges are not reported, since discordance with absolute values may lead to misinterpretation of CBC data. Current Interpretive Data was last revised on 2017. Basophil pct 0.6 % [facility] Comment: Interpretive Data Percent cell count reference ranges are not reported, since discordance with absolute values may lead to misinterpretation of CBC data. Current Interpretive Data was last revised on 2017. Blood 06/11/2023 3:21 AM WALL SCRAPER 06/11/2023 3:32 AM WALL SCRAPER Nikhil Samuel MD LAB BLOOD ORDERABLES Sally l Result [facility] [place] [address] * Basic metabolic panel (06/11/2023 3:21 AM WALL SCRAPER) Sodium 143 135 - 145 mmol/L [facility] Potassium, pl 3.8 3.3 - 4.9 mmol/L [facility] Chloride 107 97 - 110 mmol/L [facility] CO2 23 22 - 32 mmol/L [facility] Anion gap 13 2 - 15 mmol/L [facility] BUN 12 6 - 25 mg/dL [facility] Creatinine 0.80 0.80 - 1.30 mg/dL [facility] Glucose 107 70 - 199 mg/dL [facility] Comment: Interpretive Data Fasting glucose >/= [...] 2022. Calcium 9.1 8.5 - 10.3 mg/dL [facility] Blood 06/11/2023 3:21 AM WALL SCRAPER 06/11/2023 3:32 AM WALL SCRAPER us Nikhil Samuel MD LAB BLOOD ORDERABLES Sally l Result Performing Organization Address [facility] Co de Phone Number [facility] [place] [address] * (ABNORMAL) CBC with auto differential (06/11/2023 3:21 AM WALL SCRAPER) WBC 8.7 3.8 - 9.9 K/cumm [facility] Hgb 10.2(L) 13.0 - 17.5 g/dL [facility] Hct 32.6(L) 38.9 - 50.3 % [facility] Plt 334 150 - 400 K/cumm [facility] MPV 9.1 9.1 - 12.3 fL [facility] RBC 3.63(L) 4.30 - 5.80 M/cumm [facility] MCV 89.8 81.3 - 96.4 fL [facility] MCH 28.1 27.1 - 33.3 pg [facility] MCHC 31.3(L) 32.3 - 35.7 g/dL [facility] RDW CV 13.7 11.1 - 14.9 % [facility] RDW SD 44.8 35.7 - 48.1 fL [facility] NRBC abs 0.00 0.00 - 0.01 K/cumm [facility] Blood 06/11/2023 3:21 AM WALL SCRAPER 06/11/2023 3:32 AM WALL SCRAPER us Nikhil Samuel MD LAB BLOOD ORDERABLES Sally l Result Performing Organization Address City/[facility]/ZIP Co de Phone Number [facility] [place] [address] * (ABNORMAL) Phosphorus (06/11/2023 3:21 AM WALL SCRAPER) Pathologist [facility] Phosphorus, pl 4.7(H) 2.3 - 4.5 mg/dL [facility] Blood 06/11/2023 3:21 AM WALL SCRAPER 06/11/2023 3:32 AM WALL SCRAPER Sreekanth Armstrong NP LAB BLOOD ORDERABLES Sally l Result Performing Organization Address [facility] de Phone Number [facility] [place] [address] * Magnesium (06/11/2023 3:21 AM WALL SCRAPER) [facility] Magnesium 2.3 1.4 - 2.5 mg/dL [facility] Blood 06/11/2023 3:21 AM WALL SCRAPER 06/11/2023 3:32 AM WALL SCRAPER Sreekanth Armstrong NP LAB BLOOD ORDERABLES Sally l Result Performing Organization Address [facility] de Phone Number [facility] [place] [address] * Type and screen (06/11/2023 3:21 AM WALL SCRAPER) Pathologist [facility] ABO Rh A Positive Ellen, indirect Negative [facility] Blood 06/11/2023 3:21 AM WALL SCRAPER 06/11/2023 3:47 AM WALL SCRAPER Narrative [facility] - 06/11/2023 4:36 AM WALL SCRAPER Has the patient had Daratumumab or Isatuximab in the past 6 months?->Unknown Sreekanth Armstrong NP LAB BLOOD BANK TEST ORDER CAROLINE Final Result Performing Organization Address [facility] Co de Phone Number [facility] [place] [address] * XR Chest 1 View (06/10/2023 7:25 PM WALL SCRAPER) Anatomical Region Laterality Modality Body, Chest N/A Computed Radiogr aphy 06/10/2023 7:29 PM WALL SCRAPER Impressions 06/10/2023 7:29 PM WALL SCRAPER The current study is compared with the prior radiograph dated ??06/09/2023. 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 ??The heart is mildly enlarged. ??There is no pneumothorax.. There is no mass or lymphadenopathy no pleural effusions Electronically signed by: Floridalma Oliva M.D. Narrative 06/10/2023 7:29 PM WALL SCRAPER EXAMINATION: 1 view chest radiograph Procedure Note [...] signed by: Floridalma Oliva M.D. Sreekanth Armstrong CONTINUOUS PROCESS TANNER [employer]ARY DRUM IMG XR PROCEDURES Final R esult * CTA Chest Abdomen Pelvis (06/10/2023 8:33 AM WALL SCRAPER) Anatomical Region Laterality Modality Body N/A Computed Tomogra phy 06/10/2023 11:4 0 AM WALL SCRAPER Impressions 06/10/2023 11:53 AM WALL SCRAPER Interval expected postoperative changes of inferior extension [...] Bassam Dykes M.D. Narrative 06/10/2023 11:53 AM WALL SCRAPER EXAMINATION: ??CT ANGIOGRAPHY OF THE CHEST, ABDOMEN [...] is 45 mm AP x 47 mm gewjp-[id number], previously 46 x 46 mm when measured similarly on 06/03/2023. ??The maximum diameter of the graft is 33 mm AP x 34 mm gsihl-kq-flto, this is at the distal aspect of [...] is 45 mm AP x 47 mm eqcyf-eo-udgx, previously 46 x 46 mm when measured similarly on 06/03/2023. The maximum diameter of the graft is 33 mm AP x 34 mm oukwx-uw-gdsq, this is at the distal aspect of [...] signed by: Bassam Dykes M.D. Bettie Wheeler CONTINUOUS PROCESS [employer] DRUM IMG CT PROCEDURES Fin al Result * (ABNORMAL) Basic metabolic panel (06/10/2023 5:24 AM WALL SCRAPER) Sodium 141 135 - 145 mmol/L [facility] Potassium, pl 3.5 3.3 - 4.9 mmol/L [facility] Chloride 104 97 - 110 mmol/L [facility] CO2 26 22 - 32 mmol/L [facility] Anion gap 11 2 - 15 mmol/L [facility] BUN 11 6 - 25 mg/dL [facility] Creatinine 0.77(L) 0.80 - 1.30 mg/dL [facility] Glucose 108 70 - 199 mg/dL [facility] Comment: Interpretive Data Fasting glucose >/= [...] 2022. Calcium 9.2 8.5 - 10.3 mg/dL [facility] Blood 06/10/2023 5:24 AM WALL SCRAPER 06/10/2023 5:45 AM WALL SCRAPER us Nikhil Samuel MD LAB BLOOD ORDERABLES Sally leatha Result [facility] [place] [address] * eGFR (06/10/2023 5:24 AM WALL SCRAPER) eGFR >90 >=60 mL/min/1. 73 m2 [facility] Comment: Interpretive Data Reference Interval [...] last reviewed 2021. Blood 06/10/2023 5:24 AM WALL SCRAPER 06/10/2023 5:45 AM WALL SCRAPER us Nikhil Samuel MD LAB BLOOD ORDERABLES Sally zhang Result [facility] [place] [address] * (ABNORMAL) Differential, auto (06/10/2023 5:24 AM WALL SCRAPER) Neutrophil abs 5.8 1.5 - 6.5 K/cumm [facility] Imm gran abs 0.1 0.0 - 0.1 K/cumm [facility] Lymphocyte abs 2.2 0.8 - 3.3 K/cumm [facility] Monocyte abs 1.3(H) 0.2 - 0.8 K/cumm [facility] Eosinophil abs 0.1 0.0 - 0.5 K/cumm [facility] Basophil abs 0.0 0.0 - 0.1 K/cumm [facility] Neutrophil pct 60.9 % [facility] Comment: Interpretive Data Percent cell count reference ranges are not reported, since discordance with absolute values may lead to misinterpretation of CBC data. Current Interpretive Data was last revised on 2017. Imm gran pct 1.1 % [facility] Comment: Interpretive Data Percent cell count reference ranges are not reported, since discordance with absolute values may lead to misinterpretation of CBC data. Current Interpretive Data was last revised on 2017. Lymphocyte pct 23.0 % [facility] Comment: Interpretive Data Percent cell count reference ranges are not reported, since discordance with absolute values may lead to misinterpretation of CBC data. Current Interpretive Data was last revised on 2017. Monocyte pct 13.7 % [facility] Comment: Interpretive Data Percent cell count reference ranges are not reported, since discordance with absolute values may lead to misinterpretation of CBC data. Current Interpretive Data was last revised on 2017. Eosinophil pct 0.9 % [facility] Comment: Interpretive Data Percent cell count reference ranges are not reported, since discordance with absolute values may lead to misinterpretation of CBC data. Current Interpretive Data was last revised on 2017. Basophil pct 0.4 % [facility] Comment: Interpretive Data Percent cell count reference ranges are not reported, since discordance with absolute values may lead to misinterpretation of CBC data. Current Interpretive Data was last revised on 2017. Blood 06/10/2023 5:24 AM WALL SCRAPER 06/10/2023 5:45 AM WALL SCRAPER Nikhil Samuel MD LAB BLOOD ORDERABLES Sally l Result Performing Organization Address City/[facility]/ZIP Co de Phone Number [facility] [place] [address] * (ABNORMAL) CBC with auto differential (06/10/2023 5:24 AM WALL SCRAPER) WBC 9.5 3.8 - 9.9 K/cumm [facility] Hgb 10.7(L) 13.0 - 17.5 g/dL [facility] Hct 32.8(L) 38.9 - 50.3 % [facility] Plt 333 150 - 400 K/cumm [facility] MPV 9.0(L) 9.1 - 12.3 fL [facility] RBC 3.67(L) 4.30 - 5.80 M/cumm [facility] MCV 89.4 81.3 - 96.4 fL [facility] MCH 29.2 27.1 - 33.3 pg [facility] MCHC 32.6 32.3 - 35.7 g/dL [facility] RDW CV 13.7 11.1 - 14.9 % [facility] RDW SD 45.1 35.7 - 48.1 fL [facility] NRBC abs 0.00 0.00 - 0.01 K/cumm [facility] Blood 06/10/2023 5:24 AM WALL SCRAPER 06/10/2023 5:45 AM WALL SCRAPER us Nikhil Samuel MD LAB BLOOD ORDERABLES Sally l Result Performing Organization Address City/[facility]/ZIP Co de Phone Number [facility] [place] [address] * Phosphorus (06/10/2023 5:24 AM WALL SCRAPER) Phosphorus, pl 3.5 2.3 - 4.5 mg/dL [facility] Blood 06/10/2023 5:24 AM WALL SCRAPER 06/10/2023 5:45 AM WALL SCRAPER Sreekanth Armstrong CONTINUOUS PROCESS [employer]UM LAB BLOOD ORDERABLES Sally l Result Performing Organization Address City/[facility] Co de Phone Number [facility] [place] [address] * Magnesium (06/10/2023 5:24 AM WALL SCRAPER) Pathologist [facility] Magnesium 2.4 1.4 - 2.5 mg/dL [facility] Blood 06/10/2023 5:24 AM WALL SCRAPER 06/10/2023 5:45 AM WALL SCRAPER Sreekanth Armstrong CONTINUOUS PROCESS [employer]UM LAB BLOOD ORDERABLES Sally l Result Performing Organization Address [facility] de Phone Number [facility] [place] [address] * XR Chest 1 View (06/09/2023 6:36 PM WALL SCRAPER) Anatomical Region Laterality Modality Body, Chest N/A Computed Radiogr aphy 06/10/2023 8:59 AM WALL SCRAPER Impressions 06/10/2023 9:23 AM WALL SCRAPER Again noted is changes of thoracic and [...] agrees with it. Electronically signed by: James Alvaardo M.D. Narrative 06/10/2023 9:23 AM WALL SCRAPER EXAMINATION: 1 view chest radiograph Comparison to [...] Electronically signed by: James Alvarado M.D. us Sreekanth Armstrong CONTINUOUS PROCESS [employer] DRUM IMG XR PROCEDURES Final R esult * eGFR (06/08/2023 8:53 PM WALL SCRAPER) eGFR >90 >=60 mL/min/1. 73 m2 [facility] Comment: Interpretive Data Reference Interval Normal ?>/= [...] last reviewed 2021. Blood 06/08/2023 8:53 PM WALL SCRAPER 06/08/2023 9:33 PM WALL SCRAPER Sreekanth Armstrong CONTINUOUS PROCESS [employer]UM LAB BLOOD ORDERABLES Sally l Result Performing Organization Address City/[facility]/ZIP Co de Phone Number [facility] [place] [address] * (ABNORMAL) Phosphorus (06/08/2023 8:53 PM WALL SCRAPER) Phosphorus, pl 2.1(L) 2.3 - 4.5 mg/dL [facility] Blood 06/08/2023 8:53 PM WALL SCRAPER 06/08/2023 9:33 PM WALL SCRAPER Sreekanth Armstrong CONTINUOUS PROCESS [employer] DRUM LAB BLOOD ORDERABLES Sally l Result Performing Organization Address [facility] Co de Phone Number [facility] [place] [address] * Magnesium (06/08/2023 8:53 PM WALL SCRAPER) Magnesium 2.3 1.4 - 2.5 mg/dL [facility] Blood 06/08/2023 8:53 PM WALL SCRAPER 06/08/2023 9:33 PM WALL SCRAPER Sreekanth Armstrong CONTINUOUS PROCESS [employer]UM LAB BLOOD ORDERABLES Sally l Result Performing Organization Address City/[facility] [place] [address] * Basic metabolic panel (06/08/2023 8:53 PM WALL SCRAPER) Sodium 136 135 - 145 mmol/L [facility] Potassium, pl 3.7 3.3 - 4.9 mmol/L [facility] Chloride 101 97 - 110 mmol/L [facility] CO2 26 22 - 32 mmol/L [facility] Anion gap 9 2 - 15 mmol/L [facility] BUN 17 6 - 25 mg/dL [facility] Creatinine 1.01 0.80 - 1.30 mg/dL [facility] Glucose 164 70 - 199 mg/dL [facility] Comment: Interpretive Data Fasting glucose >/= [...] 2022. Calcium 8.6 8.5 - 10.3 mg/dL [facility] Blood 06/08/2023 8:5 3 PM WALL SCRAPER 06/08/2023 9:33 PM WALL SCRAPER Sreekanth Armstrong NP LAB BLOOD ORDERABLES Sally zhang Result [facility] [place] [address] * (ABNORMAL) CBC without differential (06/08/2023 8:53 PM WALL SCRAPER) Pathologist [facility] WBC 10.9(H) 3.8 - 9.9 K/cumm [facility] Hgb 9.6(L) 13.0 - 17.5 g/dL [facility] Hct 30.9(L) 38.9 - 50.3 % [facility] Plt 232 150 - 400 K/cumm [facility] MPV 9.4 9.1 - 12.3 fL [facility] RBC 3.42(L) 4.30 - 5.80 M/cumm [facility] MCV 90.4 81.3 - 96.4 fL [facility] MCH 28.1 27.1 - 33.3 pg [facility] MCHC 31.1(L) 32.3 - 35.7 g/dL [facility] RDW CV 14.2 11.1 - 14.9 % [facility] RDW SD 46.9 35.7 - 48.1 fL [facility] NRBC abs 0.00 0.00 - 0.01 K/cumm [facility] Blood 06/08/2023 8:53 PM WALL SCRAPER 06/08/2023 9:34 PM WALL SCRAPER us Sreekanth Armstrong NP LAB BLOOD ORDERABLES Sally zhang Result [facility] [place] [address] * XR Chest 1 View (06/08/2023 7:33 PM WALL SCRAPER) Anatomical Region Laterality Modality Body, Chest N/A Digital Radiogra phy 06/09/2023 8:50 AM WALL SCRAPER Impressions 06/09/2023 2:10 PM WALL SCRAPER The current study is compared with the [...] Marlee Jimenez M.D. Narrative 06/09/2023 2:10 PM WALL SCRAPER EXAMINATION: 1 view chest radiograph Procedure Note [...] Electronically signed by: Marlee Jimenez M.D. us Sreeaknth Armstrong NP IMG XR PROCEDURES Final R esult * Critical Care (06/08/2023 7:32 AM WALL SCRAPER) Narrative Mehul Brooks MD - 06/08/2023 7:32 AM WALL SCRAPER Sreekanth Armstrong NP ? 06/08/2023 11:46 AM [...] plan with the patient's team and other medical/technology consultant staff. This time was in addition [...] Final Result * eGFR (06/08/2023 12:03 AM WALL SCRAPER) [facility] eGFR >90 >=60 mL/min/1. 73 m2 [...] reviewed 2021. Blood 06/08/2023 12:0 3 AM WALL SCRAPER 06/08/2023 12:26 AM WALL SCRAPER us Sheila Winters NP LAB BLOOD ORDERABLES F inal Result Performing Organization Address City/[facility]/ZIP Co de Phone Number [facility] [place] [address] * (ABNORMAL) Lactate (06/08/2023 12:03 AM WALL SCRAPER) Lactate 0.6(L) 0.7 - 2.0 mmol/L [facility] Blood 06/08/2023 12:0 3 AM WALL SCRAPER 06/08/2023 12:27 AM WALL SCRAPER us Nikhil Samuel MD LAB BLOOD ORDERABLES Sally l Result [facility] [place] [address] * (ABNORMAL) Basic metabolic panel (06/08/2023 12:03 AM WALL SCRAPER) Sodium 135 135 - 145 mmol/L [facility] Potassium, pl 3.5 3.3 - 4.9 mmol/L [facility] Chloride 100 97 - 110 mmol/L [facility] [facility] CO2 27 22 - 32 mmol/L [facility] Anion gap 8 2 - 15 mmol/L [facility] BUN 16 6 - 25 mg/dL [facility] Creatinine 0.91 0.80 - 1.30 mg/dL [facility] Glucose 108 70 - 199 mg/dL [facility] Comment: Interpretive Data Fasting glucose >/= [...] 2022. Calcium 8.4(L) 8.5 - 10.3 mg/dL [facility] Blood 06/08/2023 12:0 3 AM WALL SCRAPER 06/08/2023 12:26 AM WALL SCRAPER Sheila Winters CONTINUOUS PROCESS TANNER R[employer] DRUM LAB BLOOD ORDERABLES F inal Result [facility] [place] [address] * (ABNORMAL) CBC without differential (06/08/2023 12:03 AM WALL SCRAPER) [facility] WBC 11.8(H) 3.8 - 9.9 K/cumm [facility] Hgb 10.9(L) 13.0 - 17.5 g/dL [facility] Hct 31.8(L) 38.9 - 50.3 % [facility] Plt 260 150 - 400 K/cumm [facility] MPV 9.2 9.1 - 12.3 fL [facility] RBC 3.67(L) 4.30 - 5.80 M/cumm [facility] MCV 86.6 81.3 - 96.4 fL [facility] MCH 29.7 27.1 - 33.3 pg [facility] MCHC 34.3 32.3 - 35.7 g/dL [facility] RDW CV 13.8 11.1 - 14.9 % [facility] RDW SD 43.5 35.7 - 48.1 fL [facility] NRBC abs 0.00 0.00 - 0.01 K/cumm [facility] Blood 06/08/2023 12:0 3 AM WALL SCRAPER 06/08/2023 12:26 AM WALL SCRAPER Sheila Winters CONTINUOUS PROCESS [employer]NER [employer] DRUM LAB BLOOD ORDERABLES F inal Result Performing Organization Address [facility] Co de Phone Number [facility] [place] [address] * Phosphorus (06/08/2023 12:03 AM WALL SCRAPER) Phosphorus, pl 2.8 2.3 - 4.5 mg/dL [facility] Blood 06/08/2023 12:0 3 AM WALL SCRAPER 06/08/2023 12:26 AM WALL SCRAPER Sreekanth Armstrong CONTINUOUS PROCESS [employer] DRUM LAB BLOOD ORDERABLES Sally l Result Performing Organization Address City/[facility] Co de Phone Number [facility] [place] [address] * Magnesium (06/08/2023 12:03 AM WALL SCRAPER) Magnesium 2.2 1.4 - 2.5 mg/dL [facility] Blood 06/08/2023 12:0 3 AM WALL SCRAPER 06/08/2023 12:26 AM WALL SCRAPER Sreekanth Armstrong CONTINUOUS PROCESS [employer] DRUM LAB BLOOD ORDERABLES Sally l Result Performing Organization Address [facility]/ZIP Co de Phone Number [facility] [place] [address] * Type and screen (06/08/2023 12:03 AM WALL SCRAPER) ABO Rh A Positive Ellen, indirect Negative [facility] Blood 06/08/2023 12:0 3 AM WALL SCRAPER 06/08/2023 12:30 AM WALL SCRAPER Narrative [facility] - 06/08/2023 1:20 AM WALL SCRAPER Has the patient had Daratumumab or Isatuximab in the past 6 months?->Unknown Sreekanth Armstrong NP LAB BLOOD BANK TEST ORDER CAROLINE Final Result [facility] [place] [address] * XR Chest 1 View (06/07/2023 9:36 PM WALL SCRAPER) Anatomical Region Laterality Modality Body, Chest N/A Computed Radiogr aphy 06/08/2023 9:22 AM WALL SCRAPER Impressions 06/08/2023 7:31 PM WALL SCRAPER Changes of thoracic and abdominal aortic stent [...] Gen Baker M.D. Narrative 06/08/2023 7:31 PM WALL SCRAPER EXAMINATION: 1 view chest radiograph Comparison to [...] Electronically signed by: Gen Baker M.D. Sreekanth Craigdavid Armstrong CONTINUOUS PROCESS [employer] DRUM IMG XR PROCEDURES Final R esult * Critical Care (06/07/2023 7:53 PM WALL SCRAPER) Narrative Mehul Brooks MD - 06/07/2023 7:53 PM WALL SCRAPER Roldan Campbell PA ? 06/08/2023 ??4:34 AM [...] plan with the ICU team and other medical/technology consultant staff, making frequent assessments and decisions [...] Lower Extremity Left Limited (06/07/2023 2:29 PM WALL SCRAPER) Anatomical Region Laterality Modality Lower Extremities Left Ultrasound 06/07/2023 3:02 PM WALL SCRAPER Impressions 06/07/2023 4:09 PM WALL SCRAPER 1. No pseudoaneurysm or arteriovenous fistula of the left groin. 2. No groin hematoma. Dictated by: Sherri Banerjee MD The radiology attending physician has personally reviewed this study, and had reviewed and/or edited this written report and agrees with it. Electronically signed by: Monster Easley M.D. Narrative 06/07/2023 4:09 PM WALL SCRAPER EXAMINATION: LIMITED LEFT GROIN SONOGRAM AND DOPPLER [...] esult * Critical Care (06/07/2023 6:19 AM WALL SCRAPER) Narrative Mehul Brooks MD - 06/07/2023 6:19 AM WALL SCRAPER Sreekanth Armstrong NP ? 06/07/2023 ??5:10 PM Critical Care [...] plan with the ICU team and other medical/technology consultant staff, making frequent assessments and decisions [...] Final Result * eGFR (06/07/2023 12:11 AM WALL SCRAPER) [facility] eGFR >90 >=60 mL/min/1. 73 m2 [facility] Comment: Interpretive Data Reference Interval Normal [...] reviewed 2021. Blood 06/07/2023 12:1 1 AM WALL SCRAPER 06/07/2023 12:32 AM WALL SCRAPER us Sheila Winters NP LAB BLOOD ORDERABLES F inal Result [facility] [place] [address] * (ABNORMAL) Basic metabolic panel (06/07/2023 12:11 AM WALL SCRAPER) Pathologist [facility] Sodium 134(L) 135 - 145 mmol/L [facility] Potassium, pl 3.7 3.3 - 4.9 mmol/L [facility] Chloride 97 97 - 110 mmol/L [facility] CO2 28 22 - 32 mmol/L [facility] Anion gap 9 2 - 15 mmol/L [facility] BUN 8 6 - 25 mg/dL [facility] Creatinine 0.80 0.80 - 1.30 mg/dL [facility] Glucose 114 70 - 199 mg/dL [facility] Comment: Interpretive Data Fasting glucose >/= [...] 2022. Calcium 8.5 8.5 - 10.3 mg/dL [facility] Blood 06/07/2023 12:1 1 AM WALL SCRAPER 06/07/2023 12:32 AM WALL SCRAPER Sheila Winters CONTINUOUS PROCESS T[employer] DRUM LAB BLOOD ORDERABLES F inal Result Performing Organization Address [facility] Co de Phone Number [facility] [place] [address] * (ABNORMAL) CBC without differential (06/07/2023 12:11 AM WALL SCRAPER) WBC 11.2(H) 3.8 - 9.9 K/cumm [facility] Hgb 11.1(L) 13.0 - 17.5 g/dL [facility] Hct 33.1(L) 38.9 - 50.3 % [facility] Plt 270 150 - 400 K/cumm [facility] MPV 9.3 9.1 - 12.3 fL [facility] RBC 3.82(L) 4.30 - 5.80 M/cumm [facility] MCV 86.6 81.3 - 96.4 fL [facility] MCH 29.1 27.1 - 33.3 pg [facility] MCHC 33.5 32.3 - 35.7 g/dL [facility] RDW CV 13.4 11.1 - 14.9 % [facility] RDW SD 42.0 35.7 - 48.1 fL [facility] NRBC abs 0.00 0.00 - 0.01 K/cumm [facility] Blood 06/07/2023 12:1 1 AM WALL SCRAPER 06/07/2023 12:32 AM WALL SCRAPER Sheila Winters NP LAB BLOOD ORDERABLES F inal Result Performing Organization Address City/[facility]/ZIP Co de Phone Number [facility] [place] [address] * (ABNORMAL) Phosphorus (06/07/2023 12:11 AM WALL SCRAPER) Phosphorus, pl 2.0(L) 2.3 - 4.5 mg/dL [facility] Blood 06/07/2023 12:1 1 AM WALL SCRAPER 06/07/2023 12:32 AM WALL SCRAPER Sreekanth Armstrong CONTINUOUS PROCESS TANNER ROT[employer] DRUM LAB BLOOD ORDERABLES Sally l Result Performing Organization Address [facility]/ZIP Co de Phone Number [facility] [place] [address] * Magnesium (06/07/2023 12:11 AM WALL SCRAPER) Magnesium 2.1 1.4 - 2.5 mg/dL [facility] Blood 06/07/2023 12:1 1 AM WALL SCRAPER 06/07/2023 12:32 AM WALL SCRAPER Sreekanth Armstrong CONTINUOUS PROCESS T[employer]NER ROT[employer] DRUM LAB BLOOD ORDERABLES Sally l Result Performing Organization Address [facility] de Phone Number [facility] [place] [address] * XR Chest 1 View (06/06/2023 7:40 PM WALL SCRAPER) Anatomical Region Laterality Modality Body, Chest N/A Computed Radiogr aphy 06/07/2023 9:17 AM WALL SCRAPER Impressions 06/07/2023 12:50 PM WALL SCRAPER Changes of aortic vascular stent extending the [...] Taco Wallace M.D. Narrative 06/07/2023 12:50 PM WALL SCRAPER EXAMINATION: 1 view chest radiograph Comparison made [...] it. Electronically signed by: Taco Wallace M.D. us Benny Isaacs NP IMG XR PROCEDURES Final Result * Critical Care (06/06/2023 6:30 PM WALL SCRAPER) Narrative Mehul Brooks MD - 06/06/2023 6:30 PM WALL SCRAPER Benny Isaacs NP ? 06/07/2023 ??4:28 AM Critical Care Performed by: Benny Isaacs [...] plan with the ICU team and other medical/technology consultant staff, making frequent assessments and decisions [...] in the medical record us Benny Isaacs CONTINUOUS PROCESS TANNER ROTARY DRUM IN CLINIC/BEDSIDE ORDERABLES F inal Result * eGFR (06/06/2023 8:14 AM WALL SCRAPER) [facility] eGFR >90 >=60 mL/min/1. 73 m2 [...] last reviewed 2021. Blood 06/06/2023 8:14 AM WALL SCRAPER 06/06/2023 8:45 AM WALL SCRAPER us Sheila Winters CONTINUOUS PROCESS T[employer]NER ROT[employer] DRUM LAB BLOOD ORDERABLES F inal Result [facility] Department of Laboratories [place], [place] [id number] * (ABNORMAL) CBC without differential (06/06/2023 8:14 AM WALL SCRAPER) [facility] WBC 8.9 3.8 - 9.9 K/cumm [facility] Hgb 10.7(L) 13.0 - 17.5 g/dL [facility] Hct 32.6(L) 38.9 - 50.3 % [facility] Plt 254 150 - 400 K/cumm [facility] MPV 8.9(L) 9.1 - 12.3 fL [facility] RBC 3.74(L) 4.30 - 5.80 M/cumm [facility] MCV 87.2 81.3 - 96.4 fL [facility] MCH 28.6 27.1 - 33.3 pg [facility] MCHC 32.8 32.3 - 35.7 g/dL [facility] RDW CV 13.4 11.1 - 14.9 % [facility] RDW SD 42.4 35.7 - 48.1 fL [facility] NRBC abs 0.00 0.00 - 0.01 K/cumm [facility] Blood 06/06/2023 8:14 AM WALL SCRAPER 06/06/2023 8:27 AM WALL SCRAPER Sheila Winters CONTINUOUS PROCESS TANNER ROTARY DRUM LAB BLOOD ORDERABLES F inal Result [facility] [place] [address] * (ABNORMAL) Basic metabolic panel (06/06/2023 8:14 AM WALL SCRAPER) Pathologist [facility] Sodium 137 135 - 145 mmol/L [facility] Potassium, pl 3.6 3.3 - 4.9 mmol/L [facility] Chloride 100 97 - 110 mmol/L [facility] CO2 30 22 - 32 mmol/L [facility] Anion gap 7 2 - 15 mmol/L [facility] BUN 7 6 - 25 mg/dL [facility] Creatinine 0.91 0.80 - 1.30 mg/dL [facility] Glucose 97 70 - 199 mg/dL [facility] Comment: Interpretive Data Fasting glucose >/= [...] 2022. Calcium 8.4(L) 8.5 - 10.3 mg/dL [facility] Blood 06/06/2023 8:14 AM WALL SCRAPER 06/06/2023 8:27 AM WALL SCRAPER us Sheila Winters NP LAB BLOOD ORDERABLES F inal Result [facility] [place] [address] * Critical Care (06/06/2023 7:00 AM WALL SCRAPER) Narrative Mehul Brooks MD - 06/06/2023 7:00 AM WALL SCRAPER Sheila Winters NP ? 06/06/2023 11:08 AM [...] plan with the ICU team and other medical/technology consultant staff, making frequent assessments and decisions [...] time documenting in the medical record us Sheila Winters NP IN CLINIC/BEDSIDE SHAUNA LOPEZ Final Result * Basic metabolic panel (06/06/2023 12:06 AM WALL SCRAPER) Sodium 141 135 - 145 mmol/L [facility] Potassium, pl 3.4 3.3 - 4.9 mmol/L [facility] Chloride 103 97 - 110 mmol/L [facility] CO2 28 22 - 32 mmol/L [facility] Anion gap 10 2 - 15 mmol/L [facility] BUN 9 6 - 25 mg/dL [facility] Creatinine 1.13 0.80 - 1.30 mg/dL [facility] Glucose 100 70 - 199 mg/dL [facility] Comment: Interpretive Data Fasting glucose >/= [...] 2022. Calcium 8.8 8.5 - 10.3 mg/dL [facility] Blood 06/06/2023 12:0 6 AM WALL SCRAPER 06/06/2023 12:28 AM WALL SCRAPER us Nikhil Samuel MD LAB BLOOD ORDERABLES Sally leatha Result [facility] [place] [address] * eGFR (06/06/2023 12:06 AM WALL SCRAPER) Pathologist [facility] eGFR 89 >=60 mL/min/1. 73 m2 [facility] Comment: Interpretive Data Reference Interval Normal [...] reviewed 2021. Blood 06/06/2023 12:0 6 AM WALL SCRAPER 06/06/2023 12:40 AM WALL SCRAPER us Nikhil Samuel MD LAB BLOOD ORDERABLES Sally l Result [facility] [place] [address] * Phosphorus (06/06/2023 12:06 AM WALL SCRAPER) Phosphorus, pl 3.1 2.3 - 4.5 mg/dL [facility] Comment:Reviewed Blood 06/06/2023 12:0 6 AM WALL SCRAPER 06/06/2023 12:28 AM WALL SCRAPER us Sreekanth Armstrong NP LAB BLOOD ORDERABLES Sally l Result Performing Organization Address City/[facility]/ZIP Co de Phone Number [facility] [place] [address] * Magnesium (06/06/2023 12:06 AM WALL SCRAPER) [facility] Magnesium 1.9 1.4 - 2.5 mg/dL [facility] Blood 06/06/2023 12:0 6 AM WALL SCRAPER 06/06/2023 12:28 AM WALL SCRAPER Sreekanth Armstrong CONTINUOUS PROCESS TANNER ROTARY DRUM LAB BLOOD ORDERABLES Sally l Result Performing Organization Address [facility] Co de Phone Number [facility] [place] [address] * (ABNORMAL) CBC without differential (06/06/2023 12:06 AM WALL SCRAPER) [facility] WBC 9.0 3.8 - 9.9 K/cumm [facility] Hgb 10.2(L) 13.0 - 17.5 g/dL [facility] Hct 30.0(L) 38.9 - 50.3 % [facility] Plt 259 150 - 400 K/cumm [facility] MPV 9.1 9.1 - 12.3 fL [facility] RBC 3.47(L) 4.30 - 5.80 M/cumm [facility] MCV 86.5 81.3 - 96.4 fL [facility] MCH 29.4 27.1 - 33.3 pg [facility] MCHC 34.0 32.3 - 35.7 g/dL [facility] RDW CV 13.6 11.1 - 14.9 % [facility] RDW SD 42.5 35.7 - 48.1 fL [facility] NRBC abs 0.00 0.00 - 0.01 K/cumm [facility] Blood 06/06/2023 12:0 6 AM WALL SCRAPER 06/06/2023 12:24 AM WALL SCRAPER Sheila Winters NP LAB BLOOD ORDERABLES F inal Result [facility] [place] [address] * XR Chest 1 View (06/05/2023 7:37 PM WALL SCRAPER) Anatomical Region Laterality Modality Body, Chest N/A Computed Radiogr aphy 06/06/2023 7:52 AM WALL SCRAPER Impressions 06/06/2023 7:52 AM WALL SCRAPER Comparison is made to chest radiograph dated [...] Faiza Su M.D. Narrative 06/06/2023 7:52 AM WALL SCRAPER EXAMINATION: 1 view chest radiograph Procedure Note [...] stent. Electronically signed by: Faiza Su M.D. us Benny Isaacs NP IMG XR PROCEDURES Final Result * Critical Care (06/05/2023 6:37 PM WALL SCRAPER) Narrative Mehul Brooks MD - 06/05/2023 6:37 PM WALL SCRAPER eBnny Isaacs NP ? 06/06/2023 ??5:13 AM Critical [...] plan with the ICU team and other medical/technology consultant staff, making frequent assessments and decisions [...] documenting in the medical record Benny Isaacs CONTINUOUS PROCESS TANNER ROTARY DRUM IN CLINIC/BEDSIDE ORDERABLES F inal Result * Transfuse RBC (06/05/2023 3:17 PM WALL SCRAPER) Blood Sreekanth Armstrong CONTINUOUS PROCESS T[employer] DRUM BLOOD TRANSFUSION ORDERAB LES Final Result [facility] [place] [address] * aPTT (06/05/2023 2:53 PM WALL SCRAPER) aPTT 32 28 - 38 sec [facility] Comment: Interpretive Data Heparin therapeutic range: 66.0 - 100.0 seconds. Range based on correlation with therapeutic heparin activity range of 0.3 - 0.7 Units/mL. Current interpretive data was last revised on 2023. Blood 06/05/2023 2:53 PM WALL SCRAPER 06/05/2023 3:05 PM WALL SCRAPER Sheila Winters CONTINUOUS PROCESS TANNER ROTARY DRUM LAB BLOOD ORDERABLES F inal Result Performing Organization Address [facility] de Phone Number [facility] [place] [address] * (ABNORMAL) Protime-INR (06/05/2023 2:53 PM WALL SCRAPER) PT 15.3(H) 10.3 - 13.7 sec [facility] INR 1.34(H) 0.90 - 1.20 [facility] Comment: Interpretive data Oral anticoagulant therapeutic ranges: Venous thromboembolism prophylaxis or treatment: 2.0-3.0 CARDIOLOGY Standard range: 2.0-3.0 High-intensity range: 2.5-3.5 Refer to indication-specific guidelines for appropriate target ranges for prosthetic heart valve replacement. Current interpretive data was last revised on 2019. Blood 06/05/2023 2:53 PM WALL SCRAPER 06/05/2023 3:05 PM WALL SCRAPER Sheila Winters CONTINUOUS PROCESS T[employer]NER ROT[employer] DRUM LAB BLOOD ORDERABLES F inal Result Performing Organization Address [facility] de Phone Number [facility] [place] [address] * (ABNORMAL) eGFR (06/05/2023 1:34 PM WALL SCRAPER) Pathologist [facility] eGFR 54(L) >=60 mL/min/1. 73 m2 [facility] Comment: Interpretive Data Reference Interval Normal [...] last reviewed 2021. Blood 06/05/2023 1:34 PM WALL SCRAPER 06/05/2023 2:05 PM WALL SCRAPER Sheila Winters CONTINUOUS PROCESS TANNER ROT[employer] DRUM LAB BLOOD ORDERABLES F inal Result [facility] [place] [address] * (ABNORMAL) Differential, auto (06/05/2023 1:34 PM WALL SCRAPER) Neutrophil abs 10.3(H) 1.5 - 6.5 K/cumm [facility] Imm gran abs 0.3(H) 0.0 - 0.1 K/cumm [facility] Lymphocyte abs 1.3 0.8 - 3.3 K/cumm [facility] Monocyte abs 0.5 0.2 - 0.8 K/cumm [facility] Eosinophil abs 0.1 0.0 - 0.5 K/cumm [facility] Basophil abs 0.0 0.0 - 0.1 K/cumm [facility] Neutrophil pct 82.4 % [facility] Comment: Interpretive Data Percent cell count reference ranges are not reported, since discordance with absolute values may lead to misinterpretation of CBC data. Current Interpretive Data was last revised on 2017. Imm gran pct 2.6 % [facility] Comment: Interpretive Data Percent cell count reference ranges are not reported, since discordance with absolute values may lead to misinterpretation of CBC data. Current Interpretive Data was last revised on 2017. Lymphocyte pct 10.5 % [facility] Comment: Interpretive Data Percent cell count reference ranges are not reported, since discordance with absolute values may lead to misinterpretation of CBC data. Current Interpretive Data was last revised on 2017. Monocyte pct 3.8 % [facility] Comment: Interpretive Data Percent cell count reference ranges are not reported, since discordance with absolute values may lead to misinterpretation of CBC data. Current Interpretive Data was last revised on 2017. Eosinophil pct 0.5 % [facility] Comment: Interpretive Data Percent cell count reference ranges are not reported, since discordance with absolute values may lead to misinterpretation of CBC data. Current Interpretive Data was last revised on 2017. Basophil pct 0.2 % [facility] Comment: Interpretive Data Percent cell count reference ranges are not reported, since discordance with absolute values may lead to misinterpretation of CBC data. Current Interpretive Data was last revised on 2017. Blood 06/05/2023 1:34 PM WALL SCRAPER 06/05/2023 2:05 PM WALL SCRAPER Sheila Winters CONTINUOUS PROCESS TANNER ROTARY DRUM LAB BLOOD ORDERABLES F inal Result Performing Organization Address City/[facility]/ZIP Co de Phone Number [facility] [place] [address] * (ABNORMAL) Phosphorus (06/05/2023 1:34 PM WALL SCRAPER) Pathologist [facility] Phosphorus, pl 5.8(H) 2.3 - 4.5 mg/dL [facility] Blood 06/05/2023 1:34 PM WALL SCRAPER 06/05/2023 2:05 PM WALL SCRAPER Sheila Winters CONTINUOUS PROCESS TANNER ROTARY DRUM LAB BLOOD ORDERABLES F inal Result Performing Organization Address City/[facility]/ZIP Co de Phone Number [facility] [place] [address] * Magnesium (06/05/2023 1:34 PM WALL SCRAPER) Pathologist [facility] Magnesium 2.1 1.4 - 2.5 mg/dL [facility] Blood 06/05/2023 1:34 PM WALL SCRAPER 06/05/2023 2:05 PM WALL SCRAPER Sheila Winters NP LAB BLOOD ORDERABLES F inal Result Performing Organization Address City/[facility]/ZIP Co de Phone Number [facility] [place] [address] * (ABNORMAL) Basic metabolic panel (06/05/2023 1:34 PM WALL SCRAPER) [facility] Sodium 139 135 - 145 mmol/L [facility] Potassium, pl 4.0 3.3 - 4.9 mmol/L [facility] Chloride 104 97 - 110 mmol/L [facility] CO2 23 22 - 32 mmol/L [facility] Anion gap 12 2 - 15 mmol/L [facility] BUN 14 6 - 25 mg/dL [facility] Creatinine 1.71(H) 0.80 - 1.30 mg/dL [facility] Glucose 90 70 - 199 mg/dL [facility] Comment: Interpretive Data Fasting glucose >/= [...] 2022. Calcium 8.7 8.5 - 10.3 mg/dL [facility] Blood 06/05/2023 1:34 PM WALL SCRAPER 06/05/2023 2:05 PM WALL SCRAPER Sheila Winters NP LAB BLOOD ORDERABLES F inal Result Performing Organization Address [facility] Co de Phone Number [facility] [place] [address] * (ABNORMAL) CBC with auto differential (06/05/2023 1:34 PM WALL SCRAPER) [facility] WBC 12.5(H) 3.8 - 9.9 K/cumm [facility] Hgb 10.4(L) 13.0 - 17.5 g/dL [facility] Hct 31.7(L) 38.9 - 50.3 % [facility] Plt 267 150 - 400 K/cumm [facility] MPV 8.8(L) 9.1 - 12.3 fL [facility] RBC 3.59(L) 4.30 - 5.80 M/cumm [facility] MCV 88.3 81.3 - 96.4 fL [facility] MCH 29.0 27.1 - 33.3 pg [facility] MCHC 32.8 32.3 - 35.7 g/dL [facility] RDW CV 13.4 11.1 - 14.9 % [facility] RDW SD 43.4 35.7 - 48.1 fL [facility] NRBC abs 0.00 0.00 - 0.01 K/cumm [facility] Blood 06/05/2023 1:34 PM WALL SCRAPER 06/05/2023 2:05 PM WALL SCRAPER us Sheila Winters CONTINUOUS [facility] LAB BLOOD ORDERABLES F inal Result [facility] [place] [address] * THORACIC ENDOVASCULAR REPAIR - AORTIC (06/05/2023 1:15 PM WALL SCRAPER) Anatomical Region Laterality Modality X-Ray Angiograph y Narrative 06/05/2023 1:51 PM WALL SCRAPER Please see OpNote for result. us Nikhil Samuel MD SURGICAL CASE ORDERS Sally l Result * POCT Activated clotting time, low range (06/05/2023 12:42 PM WALL SCRAPER) ACT 150 123 - 168 sec [facility] POC Performer [id number] [facility] POC Device Number [id number] [facility] Blood 06/05/2023 12:4 2 PM WALL SCRAPER 06/05/2023 12:42 PM WALL SCRAPER us Nikhil Samuel MD LAB POCT ORDERABLES - DEV ICE Final Result Performing Organization Address [facility]/ZIP Co de Phone Number [facility] [place] [address] * (ABNORMAL) POCT Activated clotting time, low range (06/05/2023 12:29 PM WALL SCRAPER) ACT 219(H) 123 - 168 sec [facility] POC Performer [id number] [facility] POC Device Number [id number] [facility] Blood 06/05/2023 12:2 9 PM WALL SCRAPER 06/05/2023 12:29 PM WALL SCRAPER us Nikhil Samuel MD LAB POCT ORDERABLES - DEV ICE Final Result Performing Organization Address [facility] Co de Phone Number [facility] [place] [address] * (ABNORMAL) POCT Activated clotting time, low range (06/05/2023 11:49 AM WALL SCRAPER) ACT 244(H) 123 - 168 sec [facility] POC Performer [id number] [facility] P[facility] Device Number [id number] [facility] Blood 06/05/2023 11:4 9 AM WALL SCRAPER 06/05/2023 11:49 AM WALL SCRAPER us Nikhil Samuel MD LAB POCT ORDERABLES - DEV ICE Final Result Performing Organization Address City/[facility] Co de Phone Number [facility] [place] [address] * Transfuse RBC (06/05/2023 11:36 AM WALL SCRAPER) Blood us Ney Alex MD BLOOD TRANSFUSION ORD ERABLES Final Result Performing Organization Address City/[facility] Co de Phone Number [facility] [place] [address] * (ABNORMAL) POCT Activated clotting time, low range (06/05/2023 11:27 AM WALL SCRAPER) ACT 250(H) 123 - 168 sec [facility] POC Performer [id number] [facility] POC Device Number [id number] [facility] Blood 06/05/2023 11:2 7 AM WALL SCRAPER 06/05/2023 11:27 AM WALL SCRAPER us Nikhil Samuel MD LAB POCT ORDERABLES - DEV ICE Final Result Performing Organization Address [facility] Co de Phone Number [facility] [place] [address] * (ABNORMAL) POC Blood Gas and Chemistries, Arterial - (06/05/2023 11:19 AM WALL SCRAPER) pH, Art POC 7.33(L) 7.35 - 7.45 [facility] pCO2, Art POC 43 35 - 45 mmHg [facility] pO2, Art POC 146(H) 83 - 108 mmHg [facility] Na, POC 139 135 - 145 mmol/L [facility] K POC 4.5 3.3 - 4.9 mmol/L [facility] Comment: Interpretive Data This method is not able to assess for hemolysis, which may falsely increase potassium concentrations. If further testing is needed to evaluate this result, consider in-laboratory plasma potassium. Current Interpretive Data was last revised on 2022. Cl, POC 108 97 - 110 mmol/L [facility] Ionized Ca, POC 4.70 4.50 - 5.10 mg/dL [facility] Glucose, POC 115 70 - 199 mg/dL [facility] Lactate, POC 1.8 0.7 - 2.2 mmol/L [facility] SO2 (natalia) arterial 100(H) 90 - 95 % [facility] Base excess, POC -3.1 mmol/L [facility] HCO3, Art POC 23 20 - 30 mmol/L [facility] Hct, POC 24.0(L) 41.4 - 51.6 % [facility] O2 Sat, Art POC (Calc) 99 % [facility] Total Hb, POC 7.9(L) 13.8 - 17.2 g/dL [facility] Blood 06/05/2023 11:1 9 AM WALL SCRAPER 06/05/2023 11:19 AM WALL SCRAPER us Nikhil Samuel MD LAB POCT ORDERABLES - DEV ICE Final Result Performing Organization Address [facility] Co de Phone Number [facility] [place] [address] * Transfuse RBC (06/05/2023 9:13 AM WALL SCRAPER) Blood us Sreekanth Armstrong NP BLOOD TRANSFUSION ORDERAB LES Final Result Performing Organization Address City/[facility]/ZIP Co de Phone Number [facility] [place] [address] * Prepare RBC: 4 Units (06/05/2023 7:54 AM WALL SCRAPER) Product code [id number] [facility] Unit Number [id number] [facility] Product Blood Type APOS [facility] Dispense Status PRESUMED TRANSFUSED [facility] Product code [id number] [facility] Unit Number [id number] [facility] Product Blood Type APOS [facility] Dispense Status PRESUMED TRANSFUSED [facility] Product code [id number] Unit Number [id number] [facility] Product Blood Type APOS [facility] Dispense Status RETURNED [facility] Product code [id number] [facility] Unit Number [id number] [facility] Product Blood Type APOS [facility] Dispense Status PRESUMED TRANSFUSED [facility] Blood 06/05/2023 7:54 AM WALL SCRAPER 06/05/2023 7:54 AM WALL SCRAPER Narrative JAIRON COLON - 06/07/2023 7:41 AM WALL SCRAPER Specify Procedure:->EVAR Are special requirements needed? (All products are leukoreduced and CMV- safe)- >No Date required:-[id number] LRRBC # of [id number] Reasons:-Pre-op Hgb <8 g/dL} us Sheila Winters NP BLOOD BANK PRODUCT ORD ERABLES Final Result [facility] [place] [address] * Critical Care (06/05/2023 6:40 AM WALL SCRAPER) Narrative Mehul Brooks MD - 06/05/2023 6:40 AM WALL SCRAPER Sheila Winters NP ? 06/05/2023 12:01 PM [...] plan with the ICU team and other medical/technology consultant staff, making frequent assessments and decisions [...] time documenting in the medical record us Sheila Winters NP IN CLINIC/BEDSIDE SHAUNA COLONHARDY Final Result * (ABNORMAL) eGFR (06/05/2023 5:27 AM WALL SCRAPER) [facility] eGFR 52(L) >=60 mL/min/1. 73 m2 [facility] ERWIN Comment: [...] last reviewed 2021. Blood 06/05/2023 5:27 AM WALL SCRAPER 06/05/2023 5:38 AM WALL SCRAPER us Alonzo Duncan MD LAB BLOOD ORDERABLES Fin al Result [facility] [place] [address] * (ABNORMAL) Phosphorus (06/05/2023 5:27 AM WALL SCRAPER) Pathologist [facility] Phosphorus, pl 5.4(H) 2.3 - 4.5 mg/dL [facility] Blood 06/05/2023 5:27 AM WALL SCRAPER 06/05/2023 5:38 AM WALL SCRAPER Sreekanth Armstrong CONTINUOUS PROCESS [facility] [employer] LAB BLOOD ORDERABLES Sally l Result Performing Organization Address City/[facility]/ZIP Co de Phone Number [facility] [place] [address] * Magnesium (06/05/2023 5:27 AM WALL SCRAPER) [facility] Magnesium 2.2 1.4 - 2.5 mg/dL [facility] Blood 06/05/2023 5:27 AM WALL SCRAPER 06/05/2023 5:38 AM WALL SCRAPER Sreekanth Armstrong NP LAB BLOOD ORDERABLES Sally l Result Performing Organization Address [facility] Co de Phone Number [facility] [place] [address] * Lactate, whole blood (06/05/2023 5:27 AM WALL SCRAPER) [facility] Lactate, bld 1.0 0.7 - 2.0 mmol/L [facility] Blood 06/05/2023 5:27 AM WALL SCRAPER 06/05/2023 5:33 AM WALL SCRAPER Sherlyn Alicea MD LAB BLOOD ORDERABLES F inal Result Performing Organization Address City/[facility] Co de Phone Number [facility] [place] [address] * (ABNORMAL) CBC without differential (06/05/2023 5:27 AM WALL SCRAPER) [facility] WBC 8.8 3.8 - 9.9 K/cumm [facility] Hgb 7.8(L) 13.0 - 17.5 g/dL [facility] Hct 23.7(L) 38.9 - 50.3 % [facility] Plt 311 150 - 400 K/cumm [facility] MPV 8.9(L) 9.1 - 12.3 fL [facility] RBC 2.64(L) 4.30 - 5.80 M/cumm [facility] MCV 89.8 81.3 - 96.4 fL [facility] MCH 29.5 27.1 - 33.3 pg [facility] MCHC 32.9 32.3 - 35.7 g/dL [facility] RDW CV 13.1 11.1 - 14.9 % [facility] RDW SD 42.8 35.7 - 48.1 fL [facility] NRBC abs 0.00 0.00 - 0.01 K/cumm [facility] Blood 06/05/2023 5:2 7 AM WALL SCRAPER 06/05/2023 5:38 AM WALL SCRAPER us Alonzo Duncan MD LAB BLOOD ORDERABLES Fin al Result [facility] [place] [address] * (ABNORMAL) Basic metabolic panel (06/05/2023 5:27 AM WALL SCRAPER) Sodium 140 135 - 145 mmol/L [facility] Potassium, pl 4.1 3.3 - 4.9 mmol/L [facility] Chloride 104 97 - 110 mmol/L [facility] CO2 23 22 - 32 mmol/L [facility] Anion gap 13 2 - 15 mmol/L [facility] BUN 17 6 - 25 mg/dL [facility] Creatinine 1.78(H) 0.80 - 1.30 mg/dL [facility] Glucose 130 70 - 199 mg/dL [facility] Comment: Interpretive Data Fasting glucose >/= [...] 2022. Calcium 8.4(L) 8.5 - 10.3 mg/dL [facility] Blood 06/05/2023 5:27 AM WALL SCRAPER 06/05/2023 5:38 AM WALL SCRAPER us Alonzo Duncan MD LAB BLOOD ORDERABLES Fin al Result [facility] [place] [address] * (ABNORMAL) Triglycerides (06/05/2023 5:27 AM WALL SCRAPER) Triglycerides 275(H) <=149 mg/dL [facility] Comment: Interpretive Data Ages < or = [...] revised on 2018. Blood 06/05/2023 5:27 AM WALL SCRAPER 06/05/2023 5:38 AM WALL SCRAPER Alonzo Duncan MD LAB BLOOD ORDERABLES Fin al Result Performing Organization Address [facility] de Phone Number [facility] [place] [address] * Magnesium (06/04/2023 11:59 PM WALL SCRAPER) Pathologist [facility] Magnesium 2.4 1.4 - 2.5 mg/dL [facility] Blood 06/04/2023 11:5 9 PM WALL SCRAPER 06/05/2023 12:25 AM WALL SCRAPER Result [facility] Alonzo Duncan MD LAB BLOOD ORDERABLES Fin al Result Performing Organization Address [facility] de Phone Number [facility] [place] [address] * (ABNORMAL) Phosphorus (06/04/2023 11:59 PM WALL SCRAPER) Pathologist [facility] Phosphorus, pl 6.1(H) 2.3 - 4.5 mg/dL [facility] Blood 06/04/2023 11:5 9 PM WALL SCRAPER 06/05/2023 12:25 AM WALL SCRAPER Alonzo Duncan MD LAB BLOOD ORDERABLES Fin al Result Performing Organization Address [facility] [place] [address] * (ABNORMAL) eGFR (06/04/2023 11:59 PM WALL SCRAPER) eGFR 47(L) >=60 mL/min/1. 73 m2 [facility] Comment: Interpretive Data Reference Interval Normal [...] reviewed 2021. Blood 06/04/2023 11:5 9 PM WALL SCRAPER 06/05/2023 12:25 AM WALL SCRAPER us Alonzo Duncan MD LAB BLOOD ORDERABLES Fin al Result Performing Organization Address [facility] Co de Phone Number [facility] [place] [address] * Lactate, whole blood (06/04/2023 11:59 PM WALL SCRAPER) Lactate, bld 1.1 0.7 - 2.0 mmol/L [facility] Blood 06/04/2023 11:5 9 PM WALL SCRAPER 06/05/2023 12:13 AM WALL SCRAPER us Sherlyn Alicea MD LAB BLOOD ORDERABLES F inal Result Performing Organization Address City/[facility]/ZIP Co de Phone Number [facility] [place] [address] * (ABNORMAL) CBC without differential (06/04/2023 11:59 PM WALL SCRAPER) [facility] WBC 9.3 3.8 - 9.9 K/cumm [facility] Hgb 7.7(L) 13.0 - 17.5 g/dL [facility] Hct 24.3(L) 38.9 - 50.3 % [facility] Plt 319 150 - 400 K/cumm [facility] MPV 9.1 9.1 - 12.3 fL [facility] RBC 2.69(L) 4.30 - 5.80 M/cumm [facility] MCV 90.3 81.3 - 96.4 fL [facility] MCH 28.6 27.1 - 33.3 pg [facility] MCHC 31.7(L) 32.3 - 35.7 g/dL [facility] RDW CV 13.0 11.1 - 14.9 % [facility] RDW SD 42.9 35.7 - 48.1 fL [facility] NRBC abs 0.00 0.00 - 0.01 K/cumm [facility] Blood 06/04/2023 11:5 9 PM WALL SCRAPER 06/05/2023 12:25 AM WALL SCRAPER us Alonzo Duncan MD LAB BLOOD ORDERABLES Fin al Result [facility] [place] [address] * (ABNORMAL) Basic metabolic panel (06/04/2023 11:59 PM WALL SCRAPER) [facility] Sodium 139 135 - 145 mmol/L [facility] Potassium, pl 4.1 3.3 - 4.9 mmol/L [facility] Chloride 105 97 - 110 mmol/L [facility] CO2 23 22 - 32 mmol/L [facility] Anion gap 11 2 - 15 mmol/L [facility] BUN 17 6 - 25 mg/dL [facility] Creatinine 1.91(H) 0.80 - 1.30 mg/dL [facility] Glucose 112 70 - 199 mg/dL [facility] Comment: Interpretive Data Fasting glucose >/= [...] 2022. Calcium 8.4(L) 8.5 - 10.3 mg/dL [facility] Blood 06/04/2023 11:5 9 PM WALL SCRAPER 06/05/2023 12:25 AM WALL SCRAPER Alonzo Duncan MD LAB BLOOD ORDERABLES Fin al Result [facility] [place] [address] * XR Chest 1 View - in PM (06/04/2023 8:53 PM WALL SCRAPER) Anatomical Region Laterality Modality Body, Chest N/A Digital Radiogra phy 06/04/2023 10:0 2 PM WALL SCRAPER Impressions 06/04/2023 10:02 PM WALL SCRAPER Comparison is made to the prior examination from 05/13/2023. ??Aortic stent graft is unchanged in position. ??There is no pneumonic consolidation, effusion, or pneumothorax. ??The heart size is stable. Electronically signed by: Gen Baker M.D. Narrative 06/04/2023 10:02 PM WALL SCRAPER EXAMINATION: 1 view chest radiograph Procedure Note Gen Baker MD - 06/04/2023 EXAMINATION: 1 view chest radiograph IMPRESSION: Comparison is made to the prior examination from 05/13/2023. Aortic stent graft is unchanged in position. There is no pneumonic consolidation, effusion, or pneumothorax. The heart size is stable. Electronically signed by: Gen Baker M.D. us Alonzo Duncan MD IMG XR PROCEDURES Final Result * Critical Care (06/04/2023 6:46 PM WALL SCRAPER) Narrative Mehul Brooks MD - 06/04/2023 6:46 PM WALL SCRAPER Benny Isaacs NP ? 06/05/2023 ??5:07 AM [...] plan with the ICU team and other medical/technology consultant staff, making frequent assessments and decisions [...] Result * (ABNORMAL) eGFR (06/04/2023 5:33 PM WALL SCRAPER) [facility] eGFR 54(L) >=60 mL/min/1. 73 m2 [facility] Comment: Interpretive Data Reference Interval [...] last reviewed 2021. Blood 06/04/2023 5:33 PM WALL SCRAPER 06/04/2023 5:46 PM WALL SCRAPER us Alonzo Duncan MD LAB BLOOD ORDERABLES Fin al Result Performing Organization Address City/[facility]/ZIP Co de Phone Number [facility] [place] [address] * Lactate, whole blood (06/04/2023 5:33 PM WALL SCRAPER) Lactate, bld 1.8 0.7 - 2.0 mmol/L [facility] Blood 06/04/2023 5:33 PM WALL SCRAPER 06/04/2023 5:40 PM WALL SCRAPER us Sherlyn Alicea MD LAB BLOOD ORDERABLES F inal Result Performing Organization Address City/[facility] Co de Phone Number [facility] [place] [address] * (ABNORMAL) CBC without differential (06/04/2023 5:33 PM WALL SCRAPER) [facility] WBC 7.9 3.8 - 9.9 K/cumm [facility] Hgb 7.8(L) 13.0 - 17.5 g/dL [facility] Hct 24.6(L) 38.9 - 50.3 % [facility] Plt 308 150 - 400 K/cumm [facility] MPV 8.7(L) 9.1 - 12.3 fL [facility] RBC 2.71(L) 4.30 - 5.80 M/cumm [facility] MCV 90.8 81.3 - 96.4 fL [facility] MCH 28.8 27.1 - 33.3 pg [facility] MCHC 31.7(L) 32.3 - 35.7 g/dL [facility] RDW CV 12.9 11.1 - 14.9 % [facility] RDW SD 42.8 35.7 - 48.1 fL [facility] NRBC abs 0.00 0.00 - 0.01 K/cumm [facility] Blood 06/04/2023 5:33 PM WALL SCRAPER 06/04/2023 5:47 PM WALL SCRAPER Alonzo Duncan MD LAB BLOOD ORDERABLES Fin al Result [facility] [place] [address] * (ABNORMAL) Basic metabolic panel (06/04/2023 5:33 PM WALL SCRAPER) [facility] Sodium 139 135 - 145 mmol/L [facility] Potassium, pl 4.4 3.3 - 4.9 mmol/L [facility] Chloride 106 97 - 110 mmol/L [facility] CO2 22 22 - 32 mmol/L [facility] Anion gap 11 2 - 15 mmol/L [facility] BUN 17 6 - 25 mg/dL [facility] Creatinine 1.71(H) 0.80 - 1.30 mg/dL [facility] Glucose 105 70 - 199 mg/dL [facility] Comment: Interpretive Data Fasting glucose >/= [...] 2022. Calcium 8.7 8.5 - 10.3 mg/dL [facility] Blood 06/04/2023 5:33 PM WALL SCRAPER 06/04/2023 5:46 PM WALL SCRAPER us Alonzo Duncan MD LAB BLOOD ORDERABLES Fin al Result [facility] [place] [address] * US Doppler Renal Artery LTD (06/04/2023 12:27 PM WALL SCRAPER) Anatomical Region Laterality Modality Vascular N/A Ultrasound 06/04/2023 12:3 8 PM WALL SCRAPER Impressions 06/04/2023 12:52 PM WALL SCRAPER Limited examination due to portable technique, within the limitation, pulsatile arterial waveforms in the bilateral renal arteries without evidence of renal artery occlusion. Dictated by: Quincy Painting M.D. The radiology attending physician has personally reviewed this study, and had reviewed and/or edited this written report and agrees with it. Electronically signed by: Otoniel Mccain M.D. Narrative 06/04/2023 12:52 PM WALL SCRAPER EXAMINATION: LIMITED RENAL DOPPLER HISTORY: ??Aortic dissection [...] by: Otoniel Mccain M.D. Alonzo Duncan MD [facility] PROCEDURES Final Result * eGFR (06/04/2023 11:37 AM WALL SCRAPER) [facility] eGFR 61 >=60 mL/min/1. 73 m2 [facility] Comment: Interpretive Data Reference Interval Normal [...] reviewed 2021. Blood 06/04/2023 11:3 7 AM WALL SCRAPER 06/04/2023 11:56 AM WALL SCRAPER Alonzo Duncan MD LAB BLOOD ORDERABLES Fin al Result Performing Organization Address [facility] de Phone Number [facility] [place] [address] * (ABNORMAL) Protime-INR (06/04/2023 11:37 AM WALL SCRAPER) PT 15.6(H) 10.3 - 13.7 sec [facility] INR 1.37(H) 0.90 - 1.20 [facility] Comment: Interpretive data Oral anticoagulant therapeutic ranges: Venous thromboembolism prophylaxis or treatment: 2.0-3.0 CARDIOLOGY Standard range: 2.0-3.0 High-intensity range: 2.5-3.5 Refer to indication-specific guidelines for appropriate target ranges for prosthetic heart valve replacement. Current interpretive data was last revised on 2019. Blood 06/04/2023 11:3 7 AM WALL SCRAPER 06/04/2023 11:45 AM WALL SCRAPER Sheila Winters NP LAB BLOOD ORDERABLES F inal Result Performing Organization Address [facility] de Phone Number [facility] [place] [address] * Lactate, whole blood (06/04/2023 11:37 AM WALL SCRAPER) Lactate, bld 1.1 0.7 - 2.0 mmol/L [facility] Blood 06/04/2023 11:3 7 AM WALL SCRAPER 06/04/2023 11:42 AM WALL SCRAPER Sherlyn Alicea MD LAB BLOOD ORDERABLES F inal Result Performing Organization Address [facility] Co de Phone Number [facility] [place] [address] * (ABNORMAL) CBC without differential (06/04/2023 11:37 AM WALL SCRAPER) [facility] WBC 7.6 3.8 - 9.9 K/cumm [facility] Hgb 8.2(L) 13.0 - 17.5 g/dL [facility] Hct 25.8(L) 38.9 - 50.3 % [facility] Plt 336 150 - 400 K/cumm [facility] MPV 8.7(L) 9.1 - 12.3 fL [facility] RBC 2.86(L) 4.30 - 5.80 M/cumm [facility] MCV 90.2 81.3 - 96.4 fL [facility] MCH 28.7 27.1 - 33.3 pg [facility] MCHC 31.8(L) 32.3 - 35.7 g/dL [facility] RDW CV 13.0 11.1 - 14.9 % [facility] RDW SD 43.1 35.7 - 48.1 fL [facility] NRBC abs 0.00 0.00 - 0.01 K/cumm [facility] Blood 06/04/2023 11:3 7 AM WALL SCRAPER 06/04/2023 11:56 AM WALL SCRAPER Alonzo Duncan MD LAB BLOOD ORDERABLES Fin al Result Performing Organization Address [facility]/ZIP Co de Phone Number [facility] [place] [address] * (ABNORMAL) Basic metabolic panel (06/04/2023 11:37 AM WALL SCRAPER) Sodium 140 135 - 145 mmol/L [facility] Potassium, pl 4.5 3.3 - 4.9 mmol/L [facility] Chloride 105 97 - 110 mmol/L [facility] CO2 23 22 - 32 mmol/L [facility] Anion gap 12 2 - 15 mmol/L [facility] BUN 17 6 - 25 mg/dL [facility] Creatinine 1.56(H) 0.80 - 1.30 mg/dL [facility] Glucose 111 70 - 199 mg/dL [facility] Comment: Interpretive Data Fasting glucose >/= [...] 2022. Calcium 8.8 8.5 - 10.3 mg/dL [facility] Blood 06/04/2023 11:3 7 AM WALL SCRAPER 06/04/2023 11:56 AM WALL SCRAPER Alonzo Duncan MD LAB BLOOD ORDERABLES [facility] al Result [facility] [place] [address] * (ABNORMAL) Basic metabolic panel (06/04/2023 6:09 AM WALL SCRAPER) Sodium 140 135 - 145 mmol/L [facility] Potassium, pl 4.5 3.3 - 4.9 mmol/L [facility] Chloride 109 97 - 110 mmol/L [facility] CO2 22 22 - 32 mmol/L [facility] Anion gap 9 2 - 15 mmol/L [facility] BUN 16 6 - 25 mg/dL [facility] Creatinine 1.70(H) 0.80 - 1.30 mg/dL [facility] Glucose 126 70 - 199 mg/dL [facility] Comment: Interpretive Data Fasting glucose >/= [...] 2022. Calcium 8.5 8.5 - 10.3 mg/dL [facility] Blood 06/04/2023 6:09 AM WALL SCRAPER 06/04/2023 6:43 AM WALL SCRAPER Alonzo Duncan MD LAB BLOOD ORDERABLES Fin al Result [facility] [place] [address] * (ABNORMAL) eGFR (06/04/2023 6:09 AM WALL SCRAPER) [facility] eGFR 55(L) >=60 mL/min/1. 73 m2 [facility] Comment: Interpretive Data Reference Interval Normal [...] last reviewed 2021. Blood 06/04/2023 6:09 AM WALL SCRAPER 06/04/2023 6:45 AM WALL SCRAPER Alonzo Duncan MD LAB BLOOD ORDERABLES Fin al Result Performing Organization Address City/[facility]/ZIP Co de Phone Number [facility] [place] [address] * Lactate, whole blood (06/04/2023 6:09 AM WALL SCRAPER) Pathologist [facility] Lactate, bld 1.7 0.7 - 2.0 mmol/L [facility] Blood 06/04/2023 6:09 AM WALL SCRAPER 06/04/2023 6:17 AM WALL SCRAPER us Sherlyn Alicea MD LAB BLOOD ORDERABLES F inal Result Performing Organization Address [facility]/ZIP Co de Phone Number [facility] [place] [address] * (ABNORMAL) CBC without differential (06/04/2023 6:09 AM WALL SCRAPER) WBC 8.8 3.8 - 9.9 K/cumm [facility] Hgb 8.2(L) 13.0 - 17.5 g/dL [facility] Hct 25.8(L) 38.9 - 50.3 % [facility] Plt 347 150 - 400 K/cumm [facility] MPV 8.9(L) 9.1 - 12.3 fL [facility] RBC 2.89(L) 4.30 - 5.80 M/cumm [facility] MCV 89.3 81.3 - 96.4 fL [facility] MCH 28.4 27.1 - 33.3 pg [facility] MCHC 31.8(L) 32.3 - 35.7 g/dL [facility] RDW CV 13.0 11.1 - 14.9 % [facility] RDW SD 42.8 35.7 - 48.1 fL [facility] NRBC abs 0.00 0.00 - 0.01 K/cumm [facility] Blood 06/04/2023 6:09 AM WALL SCRAPER 06/04/2023 6:37 AM WALL SCRAPER Result [facility] Alonzo Duncan MD LAB BLOOD ORDERABLES Fin al Result Performing Organization Address [facility] Co de Phone Number [facility] [place] [address] * (ABNORMAL) Phosphorus (06/04/2023 6:09 AM WALL SCRAPER) Phosphorus, pl 4.6(H) 2.3 - 4.5 mg/dL [facility] Blood 06/04/2023 6:09 AM WALL SCRAPER 06/04/2023 6:43 AM WALL SCRAPER Alonzo Duncan MD LAB BLOOD ORDERABLES Fin al Result Performing Organization Address City/State/[facility] Co de Phone Number [facility] [place] [address] * Magnesium (06/04/2023 6:09 AM WALL SCRAPER) Magnesium 2.5 1.4 - 2.5 mg/dL [facility] Blood 06/04/2023 6:09 AM WALL SCRAPER 06/04/2023 6:43 AM WALL SCRAPER Alonzo Duncan MD LAB BLOOD ORDERABLES Fin al Result Performing Organization Address [facility] de Phone Number [facility] [place] [address] * (ABNORMAL) Blood gas, arterial (06/04/2023 2:33 AM WALL SCRAPER) pH, Art 7.35 7.35 - 7.45 [facility] PCO2, Arterial 44 35 - 45 mmHg [facility] PO2, Arterial 73(L) 83 - 108 mmHg [facility] HCO3 Art (Calculated) 25 20 - 30 mmol/L [facility] BE, art -1 mmol/L [facility] Comment: Interpretive Data No Reference Range Established Current Interpretive Data was last revised on 2017 O2 Sat Art (Measured) 94 90 - 95 % [facility] Blood 06/04/2023 2:33 AM WALL SCRAPER 06/04/2023 2:39 AM WALL SCRAPER Alonzo Duncan MD LAB BLOOD ORDERABLES Fin al Result Performing Organization Address [facility] de Phone Number [facility] [place] [address] * aPTT (06/04/2023 1:54 AM WALL SCRAPER) aPTT 35 28 - 38 sec [facility] Comment: Interpretive Data Heparin therapeutic range: 66.0 - 100.0 seconds. Range based on correlation with therapeutic heparin activity range of 0.3 - 0.7 Units/mL. Current interpretive data was last revised on 2023. Blood 06/04/2023 1:54 AM WALL SCRAPER 06/04/2023 2:09 AM WALL SCRAPER Alonzo Duncan MD LAB BLOOD ORDERABLES Fin al Result Performing Organization Address [facility] Co de Phone Number [facility] [place] [address] * (ABNORMAL) Protime-INR (06/04/2023 1:54 AM WALL SCRAPER) PT 15.8(H) 10.3 - 13.7 sec [facility] INR 1.39(H) 0.90 - 1.20 [facility] Comment: Interpretive data Oral anticoagulant therapeutic ranges: Venous thromboembolism prophylaxis or treatment: 2.0-3.0 CARDIOLOGY Standard range: 2.0-3.0 High-intensity range: 2.5-3.5 Refer to indication-specific guidelines for appropriate target ranges for prosthetic heart valve replacement. Current interpretive data was last revised on 2019. Blood 06/04/2023 1:54 AM WALL SCRAPER 06/04/2023 2:09 AM WALL SCRAPER Alonzo Duncan MD LAB BLOOD ORDERABLES Fin al Result Performing Organization Address [facility]/ZIP Co de Phone Number [facility] [place] [address] * Type and screen (06/04/2023 1:54 AM WALL SCRAPER) Ellen, indirect Negative ABO Rh A Positive [facility] Blood 06/04/2023 1:54 AM WALL SCRAPER 06/04/2023 2:06 AM WALL SCRAPER Narrative [facility] - 06/04/2023 3:04 AM WALL SCRAPER Has the patient had Daratumumab or Isatuximab in the past 6 months?->Unknown Alonzo Duncan MD LAB BLOOD BANK TEST ORDE RABLES Final Result [facility] [address] * [place] ARTL CATHJ/CANNULJ MNTR/TRANSFUSION SPX PRQ (06/04/2023 1:26 AM WALL SCRAPER) Narrative Mehul Brooks MD - 06/04/2023 1:26 AM WALL SCRAPER Sherlyn Alicea MD ? 06/04/2023 ??1:31 AM Arterial Line Insertion Date/Time: 06/04/2023 1:26 AM Performed by: Michael Hamm MD Authorized by: Mehul Brooks MD ?? [place] Protocol: RN Notified of Procedure: yes ?? Informed consent: ??Risks, benefits, alternatives discussed and patient/asset protection representative/guardian agrees and accepts Patient's stated name/ [...] * Lactate, whole blood (06/04/2023 1:00 AM WALL SCRAPER) [facility] Lactate, bld 1.5 0.7 - 2.0 mmol/L [facility] Blood 06/04/2023 1:00 AM WALL SCRAPER 06/04/2023 1:04 AM WALL SCRAPER Sherlyn Alicea MD LAB BLOOD ORDERABLES F inal Result [facility] [place] [address] * eGFR (06/04/2023 12:42 AM WALL SCRAPER) [facility] eGFR 89 >=60 mL/min/1. 73 m2 [facility] Comment: Interpretive Data Reference Interval Normal [...] reviewed 2021. Blood 06/04/2023 12:4 2 AM WALL SCRAPER 06/04/2023 12:49 AM WALL SCRAPER Alonzo Duncan MD LAB BLOOD ORDERABLES [facility] al Result [facility] [place] [address] * (ABNORMAL) CBC without differential (06/04/2023 12:42 AM WALL SCRAPER) WBC 8.9 3.8 - 9.9 K/cumm [facility] Hgb 9.2(L) 13.0 - 17.5 g/dL [facility] Hct 28.6(L) 38.9 - 50.3 % [facility] Plt 369 150 - 400 K/cumm [facility] MPV 9.0(L) 9.1 - 12.3 fL [facility] RBC 3.22(L) 4.30 - 5.80 M/cumm [facility] MCV 88.8 81.3 - 96.4 fL [facility] MCH 28.6 27.1 - 33.3 pg [facility] MCHC 32.2(L) 32.3 - 35.7 g/dL [facility] RDW CV 12.9 11.1 - 14.9 % [facility] RDW SD 42.2 35.7 - 48.1 fL [facility] NRBC abs 0.00 0.00 - 0.01 K/cumm [facility] Blood 06/04/2023 12:4 2 AM WALL SCRAPER 06/04/2023 1:09 AM WALL SCRAPER Alonzo Duncan MD LAB BLOOD ORDERABLES Fin al Result Performing Organization Address [facility] Co de Phone Number [facility] [place] [address] * Calcium, ionized (06/04/2023 12:42 AM WALL SCRAPER) Calcium, Ionized 4.63 4.50 - 5.10 mg/dL [facility] Blood 06/04/2023 12:4 2 AM WALL SCRAPER 06/04/2023 12:49 AM WALL SCRAPER Alonzo Duncan MD LAB BLOOD ORDERABLES Fin al Result [facility] [place] [address] * Magnesium (06/04/2023 12:42 AM WALL SCRAPER) Magnesium 1.8 1.4 - 2.5 mg/dL [facility] Blood 06/04/2023 12:4 2 AM WALL SCRAPER 06/04/2023 12:49 AM WALL SCRAPER Alonzo Duncan MD LAB BLOOD ORDERABLES Fin al Result Performing Organization Address City/[facility]/ZIP Co de Phone Number [facility] [place] [address] * Phosphorus (06/04/2023 12:42 AM WALL SCRAPER) Phosphorus, pl 4.0 2.3 - 4.5 mg/dL [facility] Blood 06/04/2023 12:4 2 AM WALL SCRAPER 06/04/2023 12:49 AM WALL SCRAPER Alonzo Duncan MD LAB BLOOD ORDERABLES Fin al Result Performing Organization Address [facility] de Phone Number [facility] [place] [address] * Basic metabolic panel (06/04/2023 12:42 AM WALL SCRAPER) Pathologist [facility] Sodium 141 135 - 145 mmol/L [facility] Potassium, pl 3.6 3.3 - 4.9 mmol/L [facility] Chloride 106 97 - 110 mmol/L [facility] CO2 24 22 - 32 mmol/L [facility] Anion gap 11 2 - 15 mmol/L [facility] BUN 13 6 - 25 mg/dL [facility] Creatinine 1.13 0.80 - 1.30 mg/dL [facility] Glucose 103 70 - 199 mg/dL [facility] Comment: Interpretive Data Fasting glucose >/= [...] 2022. Calcium 8.9 8.5 - 10.3 mg/dL [facility] Blood 06/04/2023 12:4 2 AM WALL SCRAPER 06/04/2023 12:49 AM WALL SCRAPER us Alonoz Duncan MD LAB BLOOD ORDERABLES Fin al Result [facility] [place] [address] * MI CRITICAL CARE ILL/INJURED PATIENT INIT 30-74 MIN (06/03/2023 10:14 PM WALL SCRAPER) Narrative Tressa Sorensen MD - 06/03/2023 10:14 PM WALL SCRAPER Tressa Sorensen MD ? 06/03/2023 10:15 PM [...] (ABNORMAL) Urinalysis, microscopic only (06/03/2023 10:07 PM WALL SCRAPER) Pathologist [facility] WBC, ur 0-5 0 - 5 /HPF [facility] RBC, ur 0-2 0 - 2 /HPF [facility] Epithelial cells, squamous, ur 1-5 0 - 5 /HPF [facility] Bacteria, ur 1+(A) [facility] Mucous, ur Present(A) [facility] Urine 06/03/2023 10:0 7 PM WALL SCRAPER 06/03/2023 10:14 PM WALL SCRAPER Tressa Sorensen MD LAB URINE ORDERABLES Final Re sult Performing Organization Address [facility]/ZIP Co de Phone Number [facility] [place] [address] * Lactate (06/03/2023 10:07 PM WALL SCRAPER) [facility] Lactate 1.0 0.7 - 2.0 mmol/L [facility] Blood 06/03/2023 10:0 7 PM WALL SCRAPER 06/03/2023 10:22 PM WALL SCRAPER Tressa Sorensen MD LAB BLOOD ORDERABLES Final Re sult Performing Organization Address [facility] Co de Phone Number [facility] [place] [address] * Troponin I high-sensitivity 4-hour (06/03/2023 10:07 PM WALL SCRAPER) Pathologist [facility] Trop I hs 10 <=35 ng/L [facility] Comment: Interpretive Data For further hscTnI resources including the diagnostic algorithm and an aid in interpretation, copy and paste this link: https://bjhlab.testcatalog.org/show/hsTrop-1 Current Interpretive Data last revised 2019. Trop I hs delta 2 ng/L [facility] Trop I hs interp Insignificant [facility] Blood 06/03/2023 10:0 7 PM WALL SCRAPER 06/03/2023 10:22 PM WALL SCRAPER us Deandre Niño MD LAB BLOOD ORDERABLES Final Resul t Performing Organization Address City/[facility]/ZIP Co de Phone Number [facility] [place] [address] * (ABNORMAL) Urinalysis reflex to microscopic (06/03/2023 10:07 PM WALL SCRAPER) Color, ur Straw Yellow [facility] Clarity, ur Clear Clear [facility] Specific gravity, ur >1.042(H) 1.003 - 1.030 [facility] pH, urine 6.5 [facility] Comment: Interpretive Data ? Urine pH is affected by diet, medications, systemic acid-base disturbances, and renal tubular function. ??pH may affect urinary stone formation. ??For example, urine pH below 6.0 may help reduce the tendency for calcium phosphate stones and pH greater than 6.0 may reduce the tendency for uric acid stone formation. Source: [facility] [employer] Current Interpretive Data was last revised on 2017 Protein, ur ql 1+(A) Negative [facility] Glucose, ur ql Trace(A) Negative [facility] Ketones, ur Negative Negative [facility] Bilirubin, ur Negative Negative [facility] Blood, ur Trace(A) Negative [facility] Urobilinogen, ur <2.0 <2.0 mg/dL [facility] Nitrite, ur Negative Negative [facility] Leukocyte esterase, ur Negative Negative [facility] UA reflex comment Reflex to microscopic UA will be performed. [facility] Urine 06/03/2023 10:0 7 PM WALL SCRAPER 06/03/2023 10:14 PM WALL SCRAPER us Tressa Sorensen MD LAB URINE ORDERABLES Final Re sult Performing Organization Address [facility]/ZIP Co de Phone Number [facility] [place] [address] * Troponin I high-sensitivity 2-hour (06/03/2023 8:21 PM WALL SCRAPER) Trop I hs 11 <=35 ng/L [facility] Comment: Interpretive Data For further hscTnI resources including the diagnostic algorithm and an aid in interpretation, copy and paste this link: https://bjhlab.testcatalog.org/show/hsTrop-1 Current Interpretive Data last revised 2019. Trop I hs delta 3 ng/L [facility] Trop I hs interp Insignificant [facility] Blood 06/03/2023 8:21 PM WALL SCRAPER 06/03/2023 8:37 PM WALL SCRAPER us Deandre Niño MD LAB BLOOD ORDERABLES Final Resul t [facility] [place] [address] * CTA Chest Abdomen Pelvis (06/03/2023 7:19 PM WALL SCRAPER) Anatomical Region Laterality Modality Body N/A Computed Tomogra phy 06/03/2023 7:59 PM WALL SCRAPER Impressions 06/03/2023 9:13 PM WALL SCRAPER 1. ??Changes of type B aortic dissection [...] Telly Baker M.D. Narrative 06/03/2023 9:13 PM WALL SCRAPER EXAMINATION: CT ANGIOGRAPHY OF THE CHEST, ABDOMEN [...] the 3-D workstation and sent to the [employer] archival system. ?? COMPARISON: 05/16/2023 CT FINDINGS: [...] it. Electronically signed by: Telly Baker M.D. us Michael Cortes MD IMG CT PROCEDURES Final Resul t * POCUS Retroperitoneal (AAA or Renal) (06/03/2023 6:53 PM WALL SCRAPER) Anatomical Region Laterality Modality Other 06/03/2023 6:39 PM WALL SCRAPER Narrative 06/06/2023 9:46 AM WALL SCRAPER Performed by: Nakita Holguin Aorta v3 : ?Exam Information: ?Exam type: ??Diagnostic ?Indication(s) for Exam: ?Abdominal pain ?Other Indication(s): ??hx abdominal aortic dissections w/recent surgery ?Findings: ?Was a longitudinal view obtained?: ??No ?Distal aortic diameter (cm):: ??6.09 ?Interpretation: ?Aneurysm: ??Present ?If present: ??Infrarenal Electronically signed by Nakita Holguin on Saturday, June 03, 2023 at 7:07 PM I [...] Infrarenal Electronically signed by Nakita Holguin on Tuesday, June 03, 2023 at7:07 PM I have reviewed the images & the resident's interpretation. I agree withthe findings. Electronically signed by TRESSA SORENSEN on Tuesday, June 06, 2023 at 9:46AM I have reviewed the images & the resident's interpretation. I agree withthe findings. Renal/Bladder: Exam Information: Exam type: Diagnostic Tressa Sorensen MD POCUS ORDERABLES Final Result * POCT creatinine (06/03/2023 6:36 PM WALL SCRAPER) Creatinine POC 1.1 0.7 - 1.3 mg/dL [facility] Blood 06/03/2023 6:36 PM WALL SCRAPER 06/03/2023 6:36 PM WALL SCRAPER Tressa Sorensen MD LAB POCT ORDERABLES - DEVICE Final Result [facility] [place] [address] * eGFR (06/03/2023 6:30 PM WALL SCRAPER) eGFR 85 >=60 mL/min/1. 73 m2 [facility] Comment: Interpretive Data Reference Interval Normal [...] last reviewed 2021. Blood 06/03/2023 6:30 PM WALL SCRAPER 06/03/2023 6:46 PM WALL SCRAPER us Deandre Niño MD LAB BLOOD ORDERABLES Final Resul t [facility] [place] [address] * Differential, auto (06/03/2023 6:30 PM WALL SCRAPER) Neutrophil abs 6.3 1.5 - 6.5 K/cumm [facility] Imm gran abs 0.1 0.0 - 0.1 K/cumm [facility] Lymphocyte abs 1.8 0.8 - 3.3 K/cumm [facility] Monocyte abs 0.6 0.2 - 0.8 K/cumm [facility] Eosinophil abs 0.0 0.0 - 0.5 K/cumm [facility] Basophil abs 0.1 0.0 - 0.1 K/cumm [facility] Neutrophil pct 71.2 % [facility] Comment: Interpretive Data Percent cell count reference ranges are not reported, since discordance with absolute values may lead to misinterpretation of CBC data. Current Interpretive Data was last revised on 2017. Imm gran pct 0.7 % [facility] Comment: Interpretive Data Percent cell count reference ranges are not reported, since discordance with absolute values may lead to misinterpretation of CBC data. Current Interpretive Data was last revised on 2017. Lymphocyte pct 19.8 % [facility] Comment: Interpretive Data Percent cell count reference ranges are not reported, since discordance with absolute values may lead to misinterpretation of CBC data. Current Interpretive Data was last revised on 2017. Monocyte pct 7.2 % [facility] Comment: Interpretive Data Percent cell count reference ranges are not reported, since discordance with absolute values may lead to misinterpretation of CBC data. Current Interpretive Data was last revised on 2017. Eosinophil pct 0.5 % [facility] Comment: Interpretive Data Percent cell count reference ranges are not reported, since discordance with absolute values may lead to misinterpretation of CBC data. Current Interpretive Data was last revised on 2017. Basophil pct 0.6 % [facility] Comment: Interpretive Data Percent cell count reference ranges are not reported, since discordance with absolute values may lead to misinterpretation of CBC data. Current Interpretive Data was last revised on 2017. Blood 06/03/2023 6:30 PM WALL SCRAPER 06/03/2023 6:36 PM WALL SCRAPER us Deandre Niño MD LAB BLOOD ORDERABLES Final Resul t [facility] [place] [address] * Troponin I high-sensitivity series (baseline, 2hr, 4hr, 6hr) (06/03/2023 6:30 PM WALL SCRAPER) Trop I hs 8 <=35 ng/L [facility] Comment: Interpretive Data For further [facility] resources including the diagnostic algorithm and an aid in interpretation, copy and paste this link: https://bjhlab.testcatalog.org/show/hsTrop-1 Current Interpretive Data last revised 2019. Blood 06/03/2023 6:30 PM WALL SCRAPER 06/03/2023 6:36 PM WALL SCRAPER Tressa Sorensen MD LAB BLOOD ORDERABLES Final Re sult Performing Organization Address City/[facility]/ZIP Co de Phone Number [facility] [place] [address] * Lipase (06/03/2023 6:30 PM WALL SCRAPER) [facility] Lipase 40 10 - 99 Units/L [facility] Blood (Blood, Venous) 06/03/2023 6:30 PM WALL SCRAPER 06/03/2023 6:36 PM WALL SCRAPER Tressa Sorensen MD LAB BLOOD ORDERABLES Final Re sult Performing Organization Address [facility] de Phone Number [facility] [place] [address] * (ABNORMAL) Comprehensive metabolic panel (06/03/2023 6:30 PM WALL SCRAPER) Pathologist [facility] Sodium 142 135 - 145 mmol/L [facility] Potassium, pl 3.6 3.3 - 4.9 mmol/L [facility] Chloride 105 97 - 110 mmol/L [facility] CO2 25 22 - 32 mmol/L [facility] Anion gap 12 2 - 15 mmol/L [facility] BUN 13 6 - 25 mg/dL [facility] Creatinine 1.17 0.80 - 1.30 mg/dL [facility] Glucose 130 70 - 199 mg/dL [facility] Comment: Interpretive Data Fasting glucose >/= [...] 2022. Calcium 9.9 8.5 - 10.3 mg/dL [facility] Bilirubin, total 0.3 0.1 - 1.2 mg/dL [facility] Protein, pl 9.3(H) 6.5 - 8.5 g/dL [facility] Albumin 4.1 3.5 - 5.0 g/dL [facility] Alk phos 116 40 - 130 Units/L [facility] ALT 19 7 - 55 Units/L [facility] AST 10 10 - 50 Units/L [facility] Blood 06/03/2023 6:30 PM WALL SCRAPER 06/03/2023 6:36 PM WALL SCRAPER us Tressa Sorensen MD LAB BLOOD ORDERABLES Final Re sult [facility] [place] [address] * (ABNORMAL) CBC with auto differential (06/03/2023 6:30 PM WALL SCRAPER) WBC 8.9 3.8 - 9.9 K/cumm [facility] Hgb 10.8(L) 13.0 - 17.5 g/dL [facility] Hct 33.2(L) 38.9 - 50.3 % [facility] Plt 399 150 - 400 K/cumm [facility] MPV 9.1 9.1 - 12.3 fL [facility] RBC 3.73(L) 4.30 - 5.80 M/cumm [facility] MCV 89.0 81.3 - 96.4 fL [facility] MCH 29.0 27.1 - 33.3 pg [facility] MCHC 32.5 32.3 - 35.7 g/dL [facility] RDW CV 12.9 11.1 - 14.9 % [facility] RDW SD 41.5 35.7 - 48.1 fL [facility] NRBC abs 0.00 0.00 - 0.01 K/cumm [facility] Blood (Blood, Venous) 06/03/2023 6:30 PM WALL SCRAPER 06/03/2023 6:36 PM WALL SCRAPER Tressa Soresnen MD LAB BLOOD ORDERABLES Final Re sult Performing Organization Address [facility]/State/ZIP Co de Phone Number [facility] [place] [address] * ECG 12-LEAD (06/03/2023 6:18 PM WALL SCRAPER) Narrative [facility] - 06/03/2023 6:18 PM WALL SCRAPER Michael Cortes MD ? 06/03/2023 ??6:19 PM ECG 12 lead Date/Time: 06/03/2023 6:18 PM Performed by: Michael Cortse MD Authorized by: Deandre Niño MD ?? [...] III, aVL, V4-V6 that were present onprior May 13 ECG Michael Cortes MD 06/03/231818 us Tressa Sorensen MD ECG ORDERABLES Final Result Performing Organization Address City/[facility]/ZIP Co de Phone Number [facility] documented in this encounter Visit Diagnoses Diagnosis Dissection of abdominal aorta (CMS/HCC) (HCC)- Primary Dissection of aorta, abdominal Dissection of abdominal aorta (CMS/HCC) (HCC) Dissection of aorta, abdominal Abdominal pain determined by examination HTN (hypertension), malignant Essential hypertension, malignant Dissection of thoracoabdominal aorta (CMS/HCC) (HCC) Dissection of abdominal aorta (CMS/HCC) [...] For 31 doses Given 06/11/2023 11:12 AM WALL SCRAPER 1,000 mg Given 06/11/2023 6:10 AM WALL SCRAPER 1,000 mg Given 06/11/2023 12:16 AM WALL SCRAPER 1,000 mg amLODIPine (NORVASC) tablet 5 mg 5 mg, oral, Daily, First dose on Tue06/09/23 at 1215 Given 06/11/2023 8:22 AM WALL SCRAPER 5 mg Given 06/10/2023 7:15 AM WALL SCRAPER 5 mg Given 06/09/2023 1:24 PM WALL SCRAPER 5 mg aspirin chewable tablet 81 mg 81 mg, oral, Daily, First dose on Tue06/07/23 at 1115 Given 06/11/2023 8:22 AM WALL SCRAPER 81 mg Given 06/10/2023 7:15 AM WALL SCRAPER 81 mg Given 06/09/2023 8:52 AM WALL SCRAPER 81 mg bisacodyL (DULCOLAX) suppository 10 mg 10 mg, rectal, Daily, First dose on Tue06/08/23 at 1100, Indications: constipationIndications:constipation Carrier Fluids for Secondary Infusion - 0.9% Sodium Chloride 30 mL, intravenous, As needed, For priming tubing and/or flushing, Starting on 06/04/23 at 0008 Given 06/06/2023 1:40 AM WALL SCRAPER 30 mL Carrier Fluids for Secondary Infusion - 0.9% Sodium Chloride 30 mL, intravenous, As needed, For priming tubing and/or flushing, Starting on 06/04/23 at 0008, 0-250 ml/hr to flush line after IV infusions when no maintenance IV ordered. Infuse 30mL at the same rate as the secondary infusion. Run as primary IV, not intended for KVO. carvediloL (COREG) tablet 25 mg 25 mg, oral, 2 times daily with meals (bkfst, dinner), First dose (after last modification) on Tue06/10/23 at 1800 Given 06/11/2023 8:22 AM WALL SCRAPER 25 mg Given 06/10/2023 5:29 PM WALL SCRAPER 25 mg docusate sodium (COLACE) capsule 100 mg 100 mg, oral, 2 times daily, First dose on 06/04/23 at 0045, Hold for diarrhea., Indications: constipationIndications:constipation Given 06/11/2023 8:23 AM WALL SCRAPER 100 mg Given 06/08/2023 8:21 AM WALL SCRAPER 100 mg Given 06/07/2023 8:17 PM WALL SCRAPER 100 mg enoxaparin (LOVENOX) syringe 40 mg 40 mg, subcutaneous, Daily (for enoxaparin), First dose on Tue06/08/23 at 2100, Indications: Deep Vein Thrombosis PreventionIndications:Deep Vein Thrombosis Prevention Given 06/10/2023 8:44 PM WALL SCRAPER 40 mg Left Lower Abdomen Given 06/09/2023 8:23 PM WALL SCRAPER 40 mg Le ft Upper Arm Given 06/08/2023 8:39 PM WALL SCRAPER 40 mg Ri ght Upper Arm gabapentin (NEURONTIN) capsule 300 mg 300 mg, oral, 3 times daily, First dose on 06/04/23 at 0900 Given 06/11/2023 8:23 AM WALL SCRAPER 300 mg Given 06/10/2023 8:44 PM WALL SCRAPER 300 mg Given 06/10/2023 5:29 PM WALL SCRAPER 300 mg heparin in 0.9% sodium chloride 2,000 unit/1,000 mL (2 unit/mL) infusion (premix) As needed, Starting on Tue06/05/23 at 1204, Intra-Op Given 06/05/2023 12:04 PM WALL SCRAPER 1,000 mL hydrALAZINE (APRESOLINE) tablet 25 mg 25 mg, oral, 3 times daily, First dose on 06/11/23 at 0830, Indications: hypertensionIndications:hypertension Given 06/11/2023 8:23 AM WALL SCRAPER 25 mg ioversoL (OPTIRAY 320) injection As needed, Starting on Sun /7/24 at 1230, Intra-Op Given 06/05/2023 12:30 PM WALL SCRAPER 25 mL methocarbamoL (ROBAXIN) tablet 750 mg 750 mg, oral, 3 times daily, First dose on Tue06/04/23 at 0100 Given 06/11/2023 8:23 AM WALL SCRAPER 750 mg Given 06/10/2023 8:44 PM WALL SCRAPER 750 mg Given 06/10/2023 5:29 PM WALL SCRAPER 750 mg ondansetron (ZOFRAN) injection 4 mg 4 mg, intravenous, Administer over 2 Minutes, Every 6 hours PRN, nausea, vomiting, Starting on Tue06/04/23 at 0005, Administer no sooner than 6 hours after last dose. Given 06/10/2023 6:17 PM WALL SCRAPER 4 mg Given 06/07/2023 9:11 AM WALL SCRAPER 4 mg Given 06/06/2023 5:17 PM WALL SCRAPER 4 mg oxyCODONE (ROXICODONE) tablet 10 mg 10 mg, oral, Every 4 hours PRN, 1st line for pain, Starting on Tue06/07/23 at 0900, Indications: PainIndications:Pain Given 06/11/2023 11:12 AM WALL SCRAPER 10 mg Given 06/11/2023 7:14 AM WALL SCRAPER 10 mg Given 06/11/2023 3:14 AM WALL SCRAPER 10 mg polyethylene glycol (MIRALAX) packet 17 g 17 g, oral, 2 times daily, First dose (after last modification) on Tue06/07/23 at 0900, Hold for diarrhea, Indications: constipationIndications:constipation Given 06/11/2023 8:22 AM WALL SCRAPER 17 g Given 06/08/2023 8:21 AM WALL SCRAPER 17 g Given 06/07/2023 8:17 PM WALL SCRAPER 17 g prochlorperazine (COMPAZINE) injection 5 mg 5 mg, intravenous, Administer over 2 Minutes, Every 6 hours PRN, nausea, vomiting, Starting on Tue06/05/23 at 2234 Given 06/07/2023 9:56 AM WALL SCRAPER 5 mg Given 06/05/2023 10:39 PM WALL SCRAPER 5 mg QUEtiapine (SEROquel) tablet 50 mg 50 mg, oral, Nightly, First dose on Tue06/07/23 at 2100 Given 06/10/2023 8:44 PM WALL SCRAPER 50 mg Given 06/09/2023 8:22 PM WALL SCRAPER 50 mg Given 06/08/2023 8:39 PM WALL SCRAPER 50 mg ramelteon (ROZEREM) tablet 8 mg 8 mg, oral, Nightly PRN, sleep, Starting on Tue06/08/23 at 1021, Indications: Sleep-Onset InsomniaIndications:Sleep-Onset Insomnia senna (SENOKOT) tablet 1 tablet 1 tablet, oral, 2 times daily, First dose on 06/04/23 at 0045, Hold for diarrhea., Indications: constipationIndications:constipation Given 06/11/2023 8:22 AM WALL SCRAPER 1 table t Given 06/08/2023 8:21 AM WALL SCRAPER 1 tablet Given 06/07/2023 8:17 PM WALL SCRAPER 1 tablet sodium chloride (OCEAN) 0.65 % nasal spray 2 spray 2 spray, each nostril, Every 2 hours PRN, congestion, Starting on 06/06/23 at 1540 sodium chloride 0.9% flush 0.5-20 mL 0.5-20 mL, intra-catheter, Every 8 hours scheduled, First dose on 06/04/23 at 0045, Flush volume based on line type and size. Given 06/10/2023 8:44 PM WALL SCRAPER 10 mL Given 06/10/2023 5:15 AM WALL SCRAPER 10 mL Given 06/09/2023 10:10 PM WALL SCRAPER 10 mL sodium chloride 0.9% flush 0.5-20 mL 0.5-20 mL, intra-catheter, As needed, line care, Starting on 06/04/23 at 0008, Flush volume based on line type and size. Flush before and after each use. tamsulosin (FLOMAX) extended release capsule 0.8 mg 0.8 mg, oral, Daily with dinner, First dose (after last modification) on 06/04/23 at 1800, Do not crush, chew, cut, dissolve, open or otherwise manipulate tablet/capsule. Given 06/10/2023 5:29 PM WALL SCRAPER 0.8 mg Given 06/09/2023 5:40 PM WALL SCRAPER 0.8 mg Given 06/08/2023 5:25 PM WALL SCRAPER 0.8 mg documented in this encounter Discontinued Medications Medication Sig Discontinue Reason Start Date End Da te carvediloL (COREG) 12.5 mg tablet Take 1 tablet (12.5 mg total) by mouth 2 (two) times a day Stop Taking at Discharge 05/16/2023 06/11/2023 documented as of this encounter Active and Recently Administered Medications Times are shown in WALL SCRAPER. Scheduled Medication Order 06/09/2023 06/10/2023 06/11/2023 acetaminophen [...] BRIA)1112 (Given - Provider: Rita Braden, BRIA) amLODIPine (NORVASC) tablet 5 mg 5 mg, [...] 0822 (Given - Provider: Rita Braden, BRIA) bisacodyL (DULCOLAX) suppository 10 mg 10 mg, rectal, Daily, First dose on Tue06/08/23 at 1100, Indications: constipation 0852 (Not Given - Provider: Jill Dunn RN - Reason: Patient/family refused) 07 (Not Given - Provider: Jill Dunn RN - Reason: Patient/family refused) 08 (Not Given - Provider: Rita Braden RN [...] at 1800 1729 (Given - Provider: Jill Dnun RN) 0822 (Given - Provider: Rita Braden, BRIA) docusate sodium (COLACE) capsule 100 mg(Linked Group 1) 100 mg, oral, 2 times daily, First dose on Tue06/04/23 at 0045, Hold for diarrhea., Indications: constipation 0852 (Not Given - Provider: Jill Dunn RN - Reason: Patient/family refused)2120 (Not Given - Provider: Edel Sharp RN - Reason: Patient/family refused) 07 (Not Given - Provider: Jill Dunn RN - Reason: Patient/family refused)1928 (Not Given - Provider: Leticia Navas RN - Reason: Patient/family refused) 08 (Given - Provider: Rita Braden RN) enoxaparin (LOVENOX) syringe 40 mg 40 mg, subcutaneous, Daily (for enoxaparin), First dose on Tue06/08/23 at 2100, Indications: Deep Vein Thrombosis Prevention 2022 (Given - Provider: Edel Sharp RN) 2043 (Given - Provider: Leticia Navas RN) gabapentin (NEURONTIN) capsule 300 mg 300 mg, oral, 3 times daily, First dose on 06/04/23 at 0900 0852 (Given - Provider: Jill Dunn RN)1634 (Given - Provider: Jill Dunn RN)2022 (Given - Provider: Edel Sharp RN) 0715 (Given - Provider: iJll Dunn RN - Comment: BP elevated this morning)1729 (Given - Provider: Jill Dunn RN)204 (Given - Provider: Leticia Navas RN) 0823 (Given - Provider: Rita Braden RN) hydrALAZINE (APRESOLINE) tablet 25 mg (CANCELED) 25 mg, oral, 3 times daily, First dose (after last modification) on Catarina 06/09/23 at 1600, Hold for SBP <140, Indications: hypertension 1740 (Given - Provider: Jill Dunn RN - Comment: monitoring BP)2022 (Given - Provider: Edel Sharp RN) 0715 (Given - Provider: Jill Dunn RN - Comment: BP elevated this morning) hydrALAZINE (APRESOLINE) tablet 25 mg 25 mg, oral, 3 times daily, First dose on Tue06/11/23 at 0830, Indications: hypertension 0823 (Given - [...] daily, First dose on Tue06/04/23 at 0100 0852 (Given - Provider: Jill Dunn RN)1634 (Given - Provider: Jill Dunn RN)2022 (Given - Provider: Edel Sharp RN) 0715 (Given - Provider: Jill Dunn RN - Comment: BP elevated this morning)1728 (Given - Provider: Jill Dunn RN)2043 (Given [...] Patient/family refused)2044 (Given - Provider: Leticia Navas, BIRA) 0405 (Not Given - Provider: Leticia Navas RN - Reason: Other) tamsulosin (FLOMAX) extended release [...] pressure, for SBP > 160, Starting on 06/06/23 at 0946 1352 (Given - Provider: Jill Dunn RN)2343 (Given - Provider: Edel Sharp RN) 0515 (Given - Provider: Edel Sharp RN)1417 (Given - Provider: Jill Dunn, BRIA) ioversoL (OPTIRAY 350) syringe 125 mL [...] last dose. 1817 (Given - Provider: Jill Dunn, BRIA) oxyCODONE (ROXICODONE) tablet 10 mg 10 mg, oral, Every 4 hours PRN, 1st line for pain, Starting on Tue06/07/23 at 0900, Indications: Pain 0450 (Given - Provider: Linda Betancourt RN)0856 (Given - Provider: Jill Dunn RN)1321 (Given - Provider: Jill Dunn RN)1745 (Given - Provider: Jill Dunn RN)2210 (Given - Provider: Edel Sharp RN) 0211 (Given - Provider: Edel Sharp RN)0639 (Given - Provider: Edel Sharp RN)1216 (Given - Provider: Jill Dunn RN)1733 (Given - Provider: Jill Dunn RN)2147 (Given - Provider: Leticia Navas RN) 0314 (Given - Provider: Leticia Navas, BRIA)0714 [...] Every 2 hours PRN, congestion, Starting on 06/06/23 at 1540 sodium chloride 0.9% flush 0.5-20 [...] Count Last Ordered Date First Ordered Date hydrALAZINE (APRESOLINE) tablet 25 mg 2 06/09/2023 carvediloL (COREG) tablet 12.5 mg 5 024 06/04/2023 carvediloL (COREG) tablet 25 mg 5 4 06/04/2023 hydrALAZINE (APRESOLINE) tablet 10 mg 1 04/2024 ioversoL (OPTIRAY 350) syringe 125 mL 1 04/2024 labetaloL (NORMODYNE,TRANDAT E) injection 10 mg 2 06/10/2023 06/03/2023 amLODIPine (NORVASC) tablet 5 mg 1 06/09/19 bisacodyL (DULCOLAX) suppository 10 mg 1 enoxaparin (LOVENOX) syringe 40 mg 1 2023 hydrALAZINE (APRESOLINE) tablet 50 mg 1 02/2024 magnesium citrate oral solution 148 mL 1 potassium chloride ER (KLOR- CON) extended release tablet 40 mEq 3 06/08/2023 06/06/2023 ramelteon (ROZEREM) tablet 8 mg 1 aspirin chewable tablet 81 mg 1 06/07/2023 heparin 5,000 unit/mL inject ion 5,000 Units 2 06/07/2023 06/06/2023 HYDROmorphone (DILAUDID) injection 0.5 mg 3 06/07/2023 06/05/2023 oxyCODONE (ROXICODONE) tablet 10 mg 1 06/07 polyethylene glycol (MIRALAX) packet 17 g 2 06/07/2023 06/04/2023 potassium, sodium phosphates (PHOS-NAK) 280-160-250 mg packet 2 packet 1 06/07/2023 QUEtiapine (SEROquel) tablet 50 mg 1 2023 hydrALAZINE (APRESOLINE) injection 10 mg 1 06/06/2023 magnesium sulfate 4 g/100 mL in water (premix) 4 g 1 06/06/2023 potassium chloride 20 mEq/26 0 mL in sodium chloride 0.9% (premix) 20 mEq 1 06/06/2023 potassium chloride 40 mEq/52 0 mL in sodium chloride 0.9% (premix) 40 mEq 1 06/06/2023 sodium chloride (OCEAN) 0.65 % nasal spray 2 spray 1 06/06/2023 ceFAZolin (ANCEF) 2,000 mg/2 0 mL in sterile water (premix) 2,000 mg 1 06/05/2023 clevidipine (CLEVIPREX) 50 m g/100 mL (0.5 mg/mL) (premix) 3 06/05/2023 06/04/2023 furosemide (LASIX) 10 mg/mL injection 40 mg 1 06/05/2023 metoclopramide (REGLAN) 5 mg /mL injection 10 mg 1 06/05/2023 prochlorperazine (COMPAZINE) injection 5 mg 2 06/05/2023 06/04/2023 sodium chloride 0.9% IVPB 0-250 mL 1 2023 acetaminophen (TYLENOL) tablet 1,000 mg 1 0 06/04/2023 amLODIPine (NORVASC) tablet 10 mg 1 Carrier Fluids for Secondary Infusion - 0.9% Sodium Chloride 2 06/04/2023 carvediloL (COREG) tablet 50 mg 1 carvediloL (COREG) tablet 6.25 mg 1 024 docusate (COLACE) 10 mg/mL o ral liquid 100 mg 1 06/04/2023 docusate sodium (COLACE) capsule 100 mg 1 0 06/04/2023 esmolol in 0.9% sodium chlor radha (BREVIBLOC) 2,500 mg/250 mL (10 mg/mL) infusion (premix) 2 06/04/2023 06/03/2023 furosemide (LASIX) 10 mg/mL injection 20 mg 1 06/04/2023 furosemide (LASIX) 200 mg in sodium chloride 0.9% 100 mL (2 mg/mL) infusion 1 06/04/2023 gabapentin (NEURONTIN) capsule 300 mg 1 10/2023 HYDROmorphone in 0.9% sodium chloride (DILAUDID) 20 mg/100 mL (0.2 mg/mL) (premix) 2 06/04/2023 labetaloL (NORMODYNE,TRANDAT E) injection 20 mg 1 06/04/2023 labetaloL (NORMODYNE,TRANDAT E) injection 40 mg 1 06/04/2023 Lactated Ringer's (LR) infusion 1 lidocaine (XYLOCAINE) 10 mg/ mL (1 %) injection 100 mg 1 06/04/2023 magnesium sulfate 2 g/50 mL in water (premix) 2 g 1 06/04/2023 methocarbamoL (ROBAXIN) tablet 750 mg 1 10/2023 naloxone (NARCAN) 0.4 mg/mL injection 0.04-0.4 mg 1 06/04/2023 niCARdipine in sodium chlori de 0.9% (CARDENE) 25,000 mcg/250 mL (100 mcg/mL) infusion (premix) solution 2 06/04/2023 06/03/2023 ondansetron (ZOFRAN) injection 4 mg 1 06/04 senna (SENOKOT) tablet 1 tablet 1 senna 1.76 mg/mL syrup 8.8 mg 1 06/04/2023 sodium chloride 0.9% flush 0.5-20 mL 2 10/2023 sodium chloride 0.9% solution 1 06/04/2023 tamsulosin (FLOMAX) extended release capsule 0.4 mg 2 06/04/2023 tamsulosin (FLOMAX) extended release capsule 0.8 mg 1 06/04/2023 HYDROmorphone (DILAUDID) injection 1 mg 2 0 06/03/2023 ioversoL (OPTIRAY 350) syringe 100 mL 1 09/2023 labetaloL (NORMODYNE,TRANDAT E) tablet 100 mg 1 06/03/2023 morphine injection 4 mg 1 06/03/2023 Lab Orders Without Results Count Last Ordered [...] 06/05/2023 documented in this encounter Care Teams Online Project Manager Relationship Specialty Start Date End Date Unknown, Notinfile PCP - General 04/30/23 06/05/23 Leo Manzano MD [id number] [place] [address] Surgeon Vascular Surgery 05/16/23 documented as of this encounter
--- OUTSIDE RECORDS SUMMARY | 2024-05-30 05:39 | XMS_ITS | Encounter Summary ---
Author Organization [facility] Address [address] [place] [address] Phone Care Team Providers Care Model Maker Fiberglass Name Role Phone Unknown, Notinfile Primary Care Provider Unavail able Leo Manzano MD Unavailable [phone] Encounter Details Date Type Department Care Team (Late st Contact Info) Description 05/25/2023 Telephone [facility] Vascular Surgery [address] [place] [address] Girma Chang, KEN Social History Tobacco Use Types Packs/Day Years Used Date Smoking Tobacco: Never Smokeless Tobacco: Never Personal Safety Answer Date Recorded Getting School Help Needed Denies 05/09 Sex and Gender Information Value Date Recorded Sex Assigned at Not on file Legal Sex 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 I put in a referral for [facility] to come out to his home. I received a message form a Justin Castillo stating they do serve his area but its already at capacity and to let them know if we need other option. I sent a message stating I did but never heard back. The mother called me asking what the next step was so I reach out to the floor and they stated that PT saw him and he was released as he was able to get around.I asked Katherine to see if there was something the social work lecturer could do, she checked with the floor SW and she stated not that he is outpt and they should reach out to his PCP. I let the pt mother know this and she said ok and was disappointed. CCO CUTTER documented in this encounter Plan of Treatment Not on file documented as of this encounter Visit Diagnoses Not on filedocumented in this encounter Care Teams Model Maker Fiberglass Relationship Specialty Start Date End Date Unknown, Notinfile PCP - General 04/30/23 06/05/23 Leo Manzano MD [id number] [place] [address] Surgeon Vascular Surgery 05/16/23 documented as of this encounter
--- OUTSIDE RECORDS SUMMARY | 2024-05-30 05:40 | XMS_ITS | Encounter Summary ---
Author Organization [facility] Address [address] [place] [address] Phone Care Team Providers Care Tree Worker Name Role Phone Unknown, Notinfile Primary Care Provider Unavail able Encounter Details Date Type Department Care Team (Late st Contact Info) Description 05/09/2023 8:40 AM COATER Ancillary Procedure [facility] Vascular Lab IP [address] [facility] [address] [place] [address] Social History Tobacco Use Types Packs/Day Years Used Date Smoking Tobacco: Never Smokeless Tobacco: Never Personal Safety Answer Date Recorded Getting School Help Needed Denies 05/09 Sex and Gender Information Value Date Recorded Sex Assigned at Not on file Legal Sex Male 3:42 AM COATER Gender Identity Not on file Sexual Orientation Straight 06/12/2023 11 :43 PM COATER documented as of this encounter Plan of Treatment Not on file documented as of this encounter Procedures Procedure Name Priority Date/Time Associated Diagnosis Comments US VEIN DUPLEX LOWER EXTREMITY BILATERAL COMPLETE ED Urgent/IP Urgent 05/09/2023 11:23 AM COATER documented in this encounter Results * US Vein Duplex Lower Extremity Bilateral Complete (05/09/2023 11:23 AM COATER) Anatomical Region Laterality Modality Vascular Bilateral Ultrasound 05/09/2023 9:31 AM COATER Narrative 05/09/2023 9:07 PM COATER [facility] - Department of Vascular Surgery, Vascular Laboratory [address] [place] [id number] Lower Extremity Venous Ultrasound Report Patient Name: AYDEE BANGURA : 1990 (32y 11m) Study Date: 05/09/2023 9:31:37 AM Gender: M Tech: NV Location: [id number] Ref Provider: FAUSTINO MANZANO ?Quality: Adequate Order Provider: FAUSTINO MANZANO PROCEDURES: Vascular Report: Venous Duplex imaging was performed bilaterally in the lower extremities. The common femoral, femoral, popliteal, posterior tibial, peroneal veins were evaluated for patency, spontaneity and phasicity with Doppler, compression and augmentation maneuvers. Great saphenous vein proximal at the junction was evaluated with compression maneuvers. INDICATIONS: post-op pain and fever r/o DVT - FINDINGS: Performing Cdl Bulk Driver: Cheryle Soliz RVT, RDMS. Bilateral: Venous Doppler signals in the bilateral lower extremity are within normal limits for spontaneity and phasicity and respond normally to augmentation maneuvers. No evidence of deep vein thrombus by duplex, proximal to the calf. CONCLUSIONS: 1. There is no evidence of acute deep vein thrombosis in the lower extremities bilaterally. Noninvasive venous studies cannot rule out isolated calf vein obstruction. HISTORY: Not identified. PREVIOUS STUDIES: No previous studies for comparison. DISCLAIMER: The study images and the final report will be retained in the patient chart by the Vascular Laboratory for the legally required time period. This chart constitutes the legal record of any testing performed. ATTESTATION: I have reviewed and interpreted the pertinent images and measurements of this study. I attest to the conclusions in the final report that is provided above. Electronically Signed By: Pepe Gardner MD [facility] 2023-05-09 21:07:13 COATER Procedure Note Pepe Gardner MD - 05/09/2023 [facility] - Department of Vascular Surgery,Vascular Laboratory [address] [place] [address] Lower Extremity Venous Ultrasound Report Patient Name: AYDEE BANGURA : 1990 (32y 11m) Study Date: 05/09/2023 9:31:37 AM Gender: M Tech: NV Location: [place] [id number] Ref Provider: FAUSTINO MANZANO Quality: Adequate Order Provider: FAUSTINO MANZANO PROCEDURES: Vascular Report: Venous Duplex imaging was performed bilaterally in the lower extremities.The common femoral, femoral, popliteal, posterior tibial, peroneal veins wereevaluated for patency, spontaneity and phasicity with Doppler, compression and augmentationmaneuvers. Great saphenous vein proximal at the junction was evaluated with compressionmaneuvers. INDICATIONS: post-op pain and fever r/o DVT - FINDINGS: Performing Cdl Bulk Driver: Cheryle Soliz RVT, RDMS. Bilateral: Venous Doppler signals in the bilateral lower extremity are within normallimits for spontaneity and phasicity and respond normally to augmentation maneuvers.No evidence of deep vein thrombus by duplex, proximal to the calf. CONCLUSIONS: 1. There is no evidence of acute deep vein thrombosis in the lowerextremities bilaterally. Noninvasive venous studies cannot rule out isolated calf veinobstruction. HISTORY: Not identified. PREVIOUS STUDIES: No previous studies for comparison. DISCLAIMER: The study images and the final report will be retained in the patientchart by the Vascular Laboratory for the legally required time period. This chartconstitutes the legal record of any testing performed. ATTESTATION: I have reviewed and interpreted the pertinent images and measurements ofthis study. I attest to the conclusions in the final report that is provided above. Electronically Signed By: Pepe Gardner MD [facility] 2023-05-09 21:07:13 COATER Faustino Manzano MD [facility] PROCEDURES Final Re sult documented in this encounter Visit Diagnoses Not on filedocumented in this encounter Care Teams Tree Worker Relationship Specialty Start Date End Date Unknown, Notinfile PCP - General 04/30/23 06/05/23 documented as of this encounter
--- OUTSIDE RECORDS SUMMARY | 2024-05-30 05:40 | XMS_ITS | Encounter Summary ---
Author Organization [facility] Address [address] [place] [address] Phone Care Team Providers Care Locomotive Firer Name Role Phone Unknown, Notinfile Primary Care Provider Unavail able Reason for Referral * MRI/CAT/PET Scan (Routine) - Closed Specialty Diagnoses / Procedures Referred By Contac t Referred To Contact Radiology Diagnoses Dissection of thoracoabdominal aorta (CMS/HCC) (HCC) Procedures CTA Chest Abdomen Pelvis Leo Manzano MD [address] [facility] [id number] [place] [address] Phone: tel: fax: [facility] [phone] [address] [place] [phone] Referral ID Status Reason Start Date Expiration Date Visits Re quested Visits Authorized [id number] Closed 01/27/2024 03/27/2024 1 1 [employer] PIPELINE Encounter Details Date Type Department Care Team (Late st Contact Info) Description 05/05/2023 Orders Only [facility] Vascular Surgery [facility] Medical Office Building [address] [place] [id number] Leo Manzano MD [address] [facility] [id number] [place] [address] Dissection of aorta, unspecified portion of aorta (HCC) (Primary Dx); Dissection of thoracoabdominal aorta (CMS/HCC) (HCC) Social History Tobacco Use Types Packs/Day Years Used Date Smoking Tobacco: Never Smokeless Tobacco: Never Sex and Gender Information Value Date Recorded Sex Assigned at Not on file Legal 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[employer] Gender Identity Not on file Sexual Orientation Straight 06/12/2023 11 :43 PM SUPERVIS[employer] PIP[employer] documented as of this encounter Plan of Treatment Not on file documented as of this encounter Results * CTA Chest Abdomen Pelvis (03/07/2024 12:05 [...] this encounter Visit Diagnoses Diagnosis Dissection of aorta, unspecified portion of aorta (HCC)- Primary 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
--- OUTSIDE RECORDS SUMMARY | 2024-05-30 05:40 | XMS_ITS | Encounter Summary ---
Author Organization [facility] Healthcare Address [address] [place] [address] Care Team Providers Care Migratory Worker Name Role Phone Unknown, Notinfile Primary Care Provider Unavail able Faustino Herrera MD Unavailable Reason for Referral * Consultation (Routine) - Closed Specialty Diagnoses / Procedures Referred By Fernando alan Referred To Contact Urology Diagnoses Urinary retention Meron Parekh NP Phone: tel: fax: [facility] (All Locations) Referral ID Status Reason Start Date Expiration Date V isits Requested Visits Authorized [id number] Closed Specialty Services Required 05/16/2023 06/14/2024 1 1 Question Answer Please select the performing region: [facility] (All Locations) [[id number]] # of visits: 1 Comments Urinary retention when hospitalized, improved with flomax starting TRO OPTICS ENGINEER Reason for Visit * Reason Comments Chest Pain * Auth/Cert (Routine) Specialty Diagnoses / Procedures Referred By Contnazai t Referred To Contact Diagnoses Dissection of aorta, unspecified portion of aorta (HCC) Hypertension, unspecified type Class 1 obesity with body mass index (BMI) of 30.0 to 30.9 in adult, unspecified obesity type, unspecified whether serious comorbidity present AORTIC DISSECTION TYPE B Procedures na Referral ID Status Reason Start Date Expiration Date Visits Re quested Visits Authorized [id number] 1 1 Encounter Details Date Type Department Care Team (Latest Contact Info) Description 05/01/2023 4:58 AM ELECTRO OPTICS ENGINEER - 05/16/2023 4:45 PM ELECTRO OPTICS ENGINEER Hospital Encounter [facility] [address] [place] [address] Nagi Landa MD [address] [place] [address] Kameron Wadsworth MD [address] [place] [address] Marvin Granados MD [address] [facility] [id number] [place] [address] Alonzo Duncan MD [address] [facility] [id number] [place] [address] Faustino Herrera MD [address] [facility] [id number] [place] [address] Hypertension, unspecified type (Primary Dx); Dissection of aorta, unspecified portion of aorta (HCC); Class 1 obesity with body mass index (BMI) of 30.0 to 30.9 in adult, unspecified obesity type, unspecified whether serious comorbidity present; Dissection of thoracoabdominal aorta (CMS/HCC) (HCC); Urinary retention Discharge Disposition: Discharge to home or self care Social History Tobacco Use Types Packs/Day Years Used Date Smoking Tobacco: Never Smokeless Tobacco: Never Tobacco Cessation:Counseling Given: Not Answered Personal Safety Answer Date Recorded Getting School Help Needed Denies 05/09 Sex and Gender Information Value Date Recorded Sex Assigned at Not on file Legal Sex Male 3:42 AM ELECTRO OPTICS ENGINEER Gender Identity Not on file Sexual Orientation Straight 06/12/2023 11 :43 PM ELECTRO OPTICS ENGINEER documented as of this encounter Last Filed Vital Signs Vital Sign Reading Time Taken Comments Blood Pressure 149/89 05/16/2023 11:22 AM ELECTRO OPTICS ENGINEER Pulse 84 05/16/2023 11:22 AM ELECTRO OPTICS ENGINEER Temperature 36.9 ??C (98.4 ??F) 05/16/2023 1 1:22 AM ELECTRO OPTICS ENGINEER Respiratory Rate 20 05/16/2023 11:2 2 AM ELECTRO OPTICS ENGINEER Oxygen Saturation 98% 05/16/2023 11: 22 AM ELECTRO OPTICS ENGINEER Inhaled Oxygen Concentration - - Weight 99.2 kg (218 lb 11.2 oz) 05/16/2023 3:47 AM ELECTRO OPTICS ENGINEER Height 175.3 cm (5' 9 ) 05/01/2023 10:2 9 AM ELECTRO OPTICS ENGINEER Body Mass Index 32.3 05/06/2023 2:31 AM ELECTRO OPTICS ENGINEER documented in this encounter Discharge Summaries * Meron Parekh NP - 05/16/2023 10:56 AM CST Inpatient Discharge Summary BRIEF OVERVIEW Admitting Provider: Faustino Herrera MD Discharge Provider: Faustino Herrera MD Primary Care Physician at Discharge: Unknown, Notinfile None Admission Date: 05/01/2023 Discharge Date: 05/16/2023 Admission Location: [facility] Problems/Diagnoses: Principal Problem: Dissection of aorta, unspecified portion of aorta (HCC) Active Problems: Dissection of thoracoabdominal aorta (CMS/HCC) (HCC) Epistaxis Pneumonia HTN (hypertension) Urinary retention Resolved Problems: No resolved hospital problems. DETAILS OF HOSPITAL STAY Presenting Problem/History of Present Illness: Eriberto Chau is a 32 y.o. male with PMH uncontrolled HTN (non-adherence) p/w acute CP, abd pain, and SOB x 6 hours. Woke up around 1AM with symptoms and presented to [facility]. 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 On arrival, endorses n/v and persistent CP/abdominal pain. On nicardipine/esmolol gtt, SBP 150-160s. Admitted to ICU. Hospital Course: The following issues were addressed during this admission: Dissection of thoracoabdominal aorta Patient presented on [...] spray tid - no other s/s bleeding Active Issues Requiring Follow-up: Post surgical follow up Test Results Pending at Discharge: Pending Labs Order Current Status Hepatic function panel In process Lactate, whole blood In process TSH reflex to free T4 In process Type and screen In process Operative Procedures Performed: Procedure(s): THORACIC ENDOVASCULAR REPAIR - AORTIC PLACEMENT STENT - SUBCLAVIAN ARTERY - HYBRID ROOM CAUTERIZATION with silver nitrate stick on anterior active oozing area. packed with gelfoam and surgicel. Second attempt of suctioning, floseal 10, and surgicel packing of right nare. Other Procedures: None. Pertinent Test Results: Recent Labs Lab Units 05/16/23 0403 SODIUM mmol/L 140 POTASSIUM PLASMA mmol/L 3.9 CHLORIDE mmol/L 104 CO2 mmol/L 23 ANIONGAP mmol/L 13 BUN SERUM mg/dL 12 CREATININE mg/dL 0.90 GLUCOSE mg/dL 116 CALCIUM mg/dL 9.0 Recent Labs Lab Units 05/16/23 0403 WBC K/cumm 13.3* HEMOGLOBIN g/dL 9.6* HEMATOCRIT % 29.9* PLATELETS K/cumm 714* Discharge Details Physical Exam at Discharge: Discharge Condition: good Pulse: 84 Resp: 20 BP: 149/89 Temp: 36.9 ??C (98.4 ??F) Weight: 99.2 kg (218 lb 11.2 oz) Pertinent Exam Findings at Discharge: Neuro: BUE: 4-5/5 strength throughout, sensation intact; RLE: 4/5 ankle flexion, 4/5 knee flexion, 4/5 hip flexion; LLE: 4/5 throughout; sensation intact bilatereally Cardiac: regular rate and rhythm Pulses: 2+ and symmetric Palpable DP bilaterally, palpable L radial Lungs: NLB on CPAP at time of evaluation Abdomen: normal findings: soft, non-tender Discharge Disposition: Discharge to home or self careCode Status at Discharge: Full Discharge Instructions: Activity Instructions Discharge Activity: Driving restrictions -Do not drive for 2 week(s) or while taking narcotic pain medications. Discharge Activity: Elevate legs -Keep your legs elevated while sitting. Prop your legs on 1-2 pillows while in bed to reduce swelling. Discharge Activity: Lifting restrictions -Do NOT lift greater than 10 pounds for 2 week(s). Discharge Activity: Walking -You may walk as tolerated and climb stairs. Diet Instructions Adult Discharge Diet Diet Type: Return to previous diet Other Instructions Call provider for: EVAR/TEVAR/FEVAR -You have redness or swelling at incision site(s) -You have yellow drainage or bleeding at incision site(s) -You have a temperature over 101 degrees F -You have severe stomach or back pain -You have leg pain and your leg is cool to the touch -You have swelling in one leg with redness or warmth -You have shortness of breath Skin Glue Special glue has been placed on your incision. It will flake off over 1 week. Do not pick, scratch or rub. This may cause it to come off before your incision has healed. Special Instructions: Continue following PT/OT instructions Walker Height: 175.3 cm (5' 9 ) Weight: 99.2 kg (218 lb 11.2 oz) Type: Adult (163-188 cm tall) Bariatric (>300#): No Wheeled walker: Yes Wheel type: Front wheeled Leg extenders: No Walker basket: No Patient has mobility limitation requiring use and patient is able to use walker; and functional mobility deficit is resolved by use of walker?: Yes DME services provided by: [facility] Discharge Medications: Current Medications TAKE these medications [...] tablet (81 mg total) by mouth daily Start taking on: May 17, 2023 carvediloL 12.5 mg tablet Take 1 tablet [...] by mouth daily Commonly known as: FLOMAX Start taking on: May 17, 2023 Outpatient Follow-Up: Future Appointments Date Time Provider Department Center 06/06/2023 4:00 PM [facility] BCT4 [facility] N CT [facility] Main IMG 06/07/2023 3:30 PM Faustino Herrera MD VASC CAM 8B [facility] 06/21/2023 1:00 PM Lydia Barillas NP URO [facility] MOB1 [facility] Contact Information for Follow-ups [facility] (All Locations) Next Steps: Follow up Comments: Urinary retention when hospitalized, improved with flomax starting Questions: Please select the performing region: [facility] (All Locations) # of visits: 1 Referral Status: Pending Authorization Faustino Herrera MD Specialty: Vascular Surgery, General Surgery Relationship: Surgeon Libra CURRY [facility] [id number] [facility] [address] Next Steps: Follow up Comments: Follow up with established provider: [address] scan and office visit. Questions: To provider: FAUSTINO HERRERA Cosigned by Faustino Herrera MD at 05/16/2023 3:40 PM ELECTRO OPTICS ENGINEER TRO OPTICS ENGINEER TRO OPTICS ENGINEER documented in this encounter Medications at Time [...] 24 carvediloL (COREG) 12.5 mg tablet Take 1 tablet (12.5 mg total) by mouth 2 (two) times a day 60 tablet 11 3 06/11/19 24 gabapentin (NEURONTIN) 300 mg capsule Take 1 capsule (300 mg total) by mouth 3 (three) times a day 90 capsule 11 3 06/25/19 24 lidocaine (ASPERCREME) 4 % adhesive [...] Refills Last Filled Start Date End Date senna-docusate (PERICOLACE) 8.6-50 mg Take 2 tablets by mouth 2 (two) times a day To prevent constipation 40 tablet 3 ondansetron ODT (ZOFRAN-ODT) 4 mg disintegrating tablet Take 1 tablet (4 mg total) by mouth every 8 (eight) hours as needed for nausea or vomiting 10 tablet 3 aspirin 81 mg chewable tablet Take 1 tablet (81 mg total) by mouth daily 30 tablet 11 3 QUEtiapine (SEROquel) 50 mg tablet Take 1 tablet (50 mg total) by mouth nightly 30 tablet 3 08/24/19 24 tamsulosin (FLOMAX) 0.4 mg extended release capsule Take 1 capsule (0.4 mg total) by mouth daily 30 capsule 3 06/25/19 24 QUEtiapine (SEROquel) 25 mg tablet Take 2 tablets (50 mg total) by mouth nightly 60 tablet 3 05/16/20 23 polyethylene glycol (MIRALAX) 17 gram/dose bulk powderIndications:c onstipation Take 17 g by mouth daily as needed (constipation) 3 06/25/19 24 methocarbamoL (ROBAXIN) 750 mg tablet Take 1 tablet (750 mg total) by mouth 3 (three) times a day 90 tablet 3 06/25/19 24 lidocaine (ASPERCREME) 4 % adhesive patch,medicated Place 2 patches on the skin daily 20 patch 3 06/25/19 24 gabapentin (NEURONTIN) 300 mg capsule Take 1 capsule (300 mg total) by mouth 3 (three) times a day 90 capsule 11 3 06/25/19 24 carvediloL (COREG) 12.5 mg tablet Take 1 tablet (12.5 mg total) by mouth 2 (two) times a day 60 tablet 11 3 06/11/19 24 albuterol HFA (PROVENTIL HFA,VENTOLIN HFA,PROAIR HFA) 90 mcg/actuation inhaler Inhale 2 puffs every 4 (four) hours as needed for wheezing 1 each 3 07/20/19 24 acetaminophen 500 mg capsule Take 2 capsules (1,000 mg total) by mouth every 6 (six) hours as needed for pain 30 tablet 3 07/20/19 24 oxyCODONE (ROXICODONE) 10 mg tabletIndications:P ain Take 1 tablet (10 mg total) by mouth every 4 (four) hours as needed for pain 20 tablet 3 06/25/19 24 documented in this encounter Discharge Disposition Disposition Code Departure Means Destination Comment s Discharge to home or self care documented in this encounter Progress Notes * Timmy Rosales - 05/16/2023 3:23 PM CST Fr Timmy Rosales [phone] 05/16/23 1500 Time Spent Start Time 1300 Stop Time 1310 Time Calculation (min) 10 min Patient Spiritual Assessment Spirituality Assessed Yes Rastafarian Affiliation Mu-Ism Active in Synagogue Yes Spiritual Needs Communion;Prayer Clinical Encounter Type Visited With Patient and family together Response Type Continuing visit Routine Visit Follow-up Continue Visiting Yes Sacramental Encounters Communion Patient wants communion Communion Given Indicator Yes Outcomes and Progress Aligning care with patient's values Achieved Preserve dignity and respect Achieved Demonstrating care and respect Achieved Interventions Interventions Active listening;Offer spiritual/alevism support;Prayer (Benediction) TRO OPTICS ENGINEER * Meron Parekh NP - 05/16/2023 10:27 AM CST Vascular Surgery Daily Progress Patient Name/MRN: Eriberto Chau [id number] Treatment Team: Vascular Surgery Attending: Faustino Herrera MD Today's Date: 05/16/2023 Room/Bed: [place] [id number] Admit Date: 05/01/2023 Code Status: Full Code Subjective Chief complaint: abdominal pain Events During This Hospitalization: 32M PMH uncontrolled HTN (non-adherence) p/w acute CP, abd pain, and SOB x 6 hours. Woke up around 1AM with symptoms and presented to [facility]. 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 On arrival, endorses n/v and persistent CP/abdominal pain. On nicardipine/esmolol gtt. 05/02: TEVAR 05/05-12/12: Lumbar drain due to loss of LE motor function, recovered motor strength, sensation always intact 05/14: SICU to floor, doing well, well perfused, labs wnl 05/15: Urinary retention, required straight cath X1. Events Over Last 24 Hours: Per nursing voiding without any issues now. Ambulatory referral sent for urology follow up. Patient requesting to be discharged to home today. Will check post TEVAR protocol CT scan, if stable will plan to discharge to home today after surgeon review of scan. Allergies Allergen Reactions Amoxicillin Hives Current Facility-Administered Medications Medication Dose Route Frequency Provider Last Rate Last Admin acetaminophen (TYLENOL) tablet 1,000 mg 1,000 mg oral Q6H [facility] Dustin Souza, DO 1,000 mg at 05/16/23 0619 albuterol HFA (PROVENTIL HFA,VENTOLIN HFA,PROAIR HFA) 90 mcg/actuation inhaler 2 puff 2 puff inhalation Q4H PRN (RT) Dustin Souza DO aspirin chewable tablet 81 mg 81 mg oral Daily Dustin Souza DO 81 mg at 05/16/23 0931 camphor-menthoL (SARNA) 0.5-0.5 % lotion topical Q6H PRN Dustin Souza DO Given at 05/08/23 0535 Carrier Fluids for Secondary Infusion - 0.9% Sodium Chloride 30 mL intravenous PRN Dustin Souza, DO 30 mL at 05/03/23 0855 carvediloL (COREG) tablet 12.5 mg 12.5 mg oral BID Dustin Souza DO 12.5 mg at 05/16/23 0931 gabapentin (NEURONTIN) capsule 300 mg 300 mg oral TID Dustin Souza DO 300 mg at 05/16/23 0931 heparin 5,000 unit/mL injection 5,000 Units 5,000 Units subcutaneous Q8H [facility] Dustin Souza DO 5,000 Units at 05/16/23 0619 hydrOXYzine (ATARAX) tablet 25 mg 25 mg oral QID PRN Dustin Souza DO 25 mg at 05/15/23 211 lidocaine (ASPERCREME) 4 % patch 2 patch 2 patch transdermal Daily Gonzalez Johns MD 1 patch at 05/15/232115 methocarbamoL (ROBAXIN) tablet 750 mg 750 mg oral TID Heber Randolph MD 750 mg at 05/16/23 0931 ondansetron ODT (ZOFRAN-ODT) disintegrating tablet 4 mg 4 mg oral Q4H PRN Meron Parekh NP oxyCODONE (ROXICODONE) tablet 10 mg 10 mg oral Q3H PRN Dustin Souza DO 10 mg at 05/16/23 0625 polyethylene glycol (MIRALAX) packet 17 g 17 g oral BID Gonzalez Johns MD 17 g at 05/16/23 0931 QUEtiapine (SEROquel) tablet 50 mg 50 mg oral Nightly Meron Parekh NP senna-docusate (PERICOLACE) 8.6-50 mg per tablet 2 tablet 2 tablet oral BID Gonzalez Johns MD 2 tablet at 05/15/23 0852 sodium chloride (OCEAN) 0.65 % nasal spray 2 spray 2 spray each nostril Q2H while awake Dusitn Souza DO 2 spray at 05/15/23 2158 tamsulosin (FLOMAX) extended release capsule 0.4 mg 0.4 mg oral Daily Dustin Souza DO 0.4 mg at 05/16/23 0931 Objective Vitals: 24hr Min/Max: Temp Min: 36.2 ??C (97.2 ??F) Max: 37.1 ??C (98.8 ??F) Pulse Min: 66 Max: 90 BP Min: 140/74 Max: 177/97 Resp Min: 18 Max: 20 SpO2 Min: 97 % Max: 100 % Most Recent : Vitals: 05/16/23 0808 BP: (!) 177/97 Pulse: 90 Resp: 20 Temp: 37.1 ??C (98.8 ??F) SpO2: 97% I/O last 2 completed shifts: In: 510 [P.O.:490; I.V.:20] Out: 850 [Urine:850] No intake/output data recorded. Physical Exam: Neuro: BUE: 4-5/5 strength throughout, sensation intact; RLE: 4/5 ankle flexion, 4/5 knee flexion, 4/5 hip flexion; LLE: 4/5 throughout; sensation intact bilatereally Cardiac: regular rate and rhythm Pulses: 2+ and symmetric Palpable DP bilaterally, palpable L radial Lungs: NLB on CPAP at time of evaluation Abdomen: normal findings: soft, non-tender Assessment/Plan Principal Problem: Dissection of aorta, unspecified portion of aorta (HCC) Active Problems: Dissection of thoracoabdominal aorta (CMS/HCC) (HCC) Epistaxis Pneumonia HTN (hypertension) Urinary retention Urinary retention Assessment & Plan Patient with urinary retention requiring straight cath X1 05/15, now voiding without any issues. - Continue Flomax. - Patient requests urology follow up, referral placed. HTN (hypertension) Assessment & Plan Hx of uncontrolled HTN, non-compliant to medications. - Need to avoid hypotension in post TEVAR period. - SBP goal less than 180. - Currently on Coreg 12.5mg BID. Pneumonia Assessment & Plan Tracheal aspirate 05/05 with Haemophilus Inf - susana(05/04 - 05/10), linezolid (05/04-05/06) Epistaxis Assessment & Plan Significant nose bleed in the OR requiring intra-op ENT c/s. DL performed, no other sources of bleeding visualized. ACT post protamine 149. - ENT following - ocean spray tid - no other s/s bleeding Dissection of thoracoabdominal aorta (CMS/HCC) ([facility]) Assessment & Plan Patient presented on 05/01 with acute Chest [...] plan to discharge to home this afternoon. Cosigned by Faustino Herrera MD at 05/16/2023 11:24 AM ELECTRO OPTICS ENGINEER TRO OPTICS ENGINEER TRO OPTICS ENGINEER * Timmy Rosales - 05/15/2023 4:39 PM CST Timmy Bobby [phone] 05/15/23 1600 Time Spent Start Time 1320 Stop Time 1330 Time Calculation (min) 10 min Patient Spiritual Assessment Spirituality Assessed Yes Rastafarian Affiliation Mu-Ism Active in Synagogue Yes Spiritual Needs Communion;Prayer Clinical Encounter Type Visited With Patient and family together Response Type Continuing visit Routine Visit Follow-up Continue Visiting Yes Sacramental Encounters Communion Patient wants communion Communion Given Indicator Yes Outcomes and Progress Aligning care with patient's values Achieved Preserve dignity and respect Achieved Demonstrating care and respect Achieved Interventions Interventions Active listening;Offer spiritual/alevism support;Prayer (Benediction) TRO OPTICS ENGINEER * Sonia Clayton MD - 05/15/2023 7:39 AM CST Vascular Surgery Daily Progress Patient Name/MRN: Eriberto Chau [id number] Treatment Team: Vascular Surgery Attending: Faustino Herrera MD Today's Date: 05/15/2023 Room/Bed: [id number] Admit Date: 05/01/2023 Code Status: Full Code Subjective Chief complaint: abdominal pain Events During This Hospitalization: [place] 05/01 Sx TBAD 32M PMH uncontrolled HTN (non-adherence) p/w acute CP, abd pain, and SOB x 6 hours. Woke up around 1AM with symptoms and presented to [facility]. 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 On arrival, endorses n/v and persistent CP/abdominal pain. On nicardipine/esmolol gtt. 12/: TEVAR 05/05-05/10: Lumbar drain due to loss of LE motor function, recovered motor strength, sensation always intact 05/14: SICU to floor, doing well, well perfused, labs wnl Events Over Last 24 Hours: YESENIAON, AFVSS Void check not passed and straight hutton x1 Void check again at 11am this AM Allergies Allergen Reactions Amoxicillin Hives Current Facility-Administered Medications Medication Dose Route Frequency Provider Last Rate Last Admin acetaminophen (TYLENOL) tablet 1,000 mg 1,000 mg oral Q6H [facility] Dustin Souza, DO 1,000 mg at 05/15/23 0553 albuterol HFA (PROVENTIL HFA,VENTOLIN HFA,PROAIR HFA) 90 mcg/actuation inhaler 2 puff 2 puff inhalation Q4H PRN (RT) Dustin Souza DO aspirin chewable tablet 81 mg 81 mg oral Daily Dustin Souza DO 81 mg at 05/14/23 0823 camphor-menthoL (SARNA) 0.5-0.5 % lotion topical Q6H PRN Dustin Souza DO Given at 05/08/23 0535 Carrier Fluids for Secondary Infusion - 0.9% Sodium Chloride 30 mL intravenous PRN Dustin Souza DO 30 mL at 05/03/23 0855 carvediloL (COREG) tablet 12.5 mg 12.5 mg oral BID Dustin Souza DO 12.5 mg at 05/14/232126 gabapentin (NEURONTIN) capsule 300 mg 300 mg oral TID Dustin Souza DO 300 mg at 05/14/232126 heparin 5,000 unit/mL injection 5,000 Units 5,000 Units subcutaneous Q8H [facility] Dustin Souza DO 5,000 Units at 05/15/23 05 hydrOXYzine (ATARAX) tablet 25 mg 25 mg oral QID PRN Dustin Souza DO 25 mg at 05/13/232125 lidocaine (ASPERCREME) 4 % patch 2 patch 2 patch transdermal Daily Gonzalez Johns MD 2 patch at 05/14/232126 methocarbamoL (ROBAXIN) tablet 750 mg 750 mg oral TID Heber Randolph MD ondansetron (ZOFRAN) injection 4 mg 4 mg intravenous Q6H PRN Dustin Souza DO 4 mg at 05/08/23 214 oxyCODONE (ROXICODONE) tablet 10 mg 10 mg oral Q3H PRN Dustin Souza DO 10 mg at 05/15/23 0346 polyethylene glycol (MIRALAX) packet 17 g 17 g oral BID Gonzalez Johns MD 17 g at 05/14/23 0822 QUEtiapine (SEROquel) tablet 75 mg 75 mg oral Nightly Dustin Souza DO 75 mg at 127 senna-docusate (PERICOLACE) 8.6-50 mg per tablet 2 tablet 2 tablet oral BID Gonzalez Johns MD 2 tablet at 05/14/23 0823 sodium chloride (OCEAN) 0.65 % nasal spray 2 spray 2 spray each nostril Q2H while awake Dustin Souza DO 2 spray at 05/14/23 2349 tamsulosin (FLOMAX) extended release capsule 0.4 mg 0.4 mg oral Daily Dustin Souza DO 0.4 mg at 05/14/23 0823 Objective Vitals: 24hr Min/Max: Temp Min: 36.5 ??C (97.7 ??F) Max: 38.1 ??C (100.6 ??F) Pulse Min: 72 Max: 90 BP Min: 131/65 Max: 151/85 Resp Min: 16 Max: 20 SpO2 Min: 95 % Max: 98 % Most Recent : Vitals: 05/15/23 032 BP: 148/61 Pulse: 79 Resp: 20 Temp: 36.5 ??C (97.7 ??F) SpO2: 97% I/O last 2 completed shifts: In: 1054 [P.O.:1034; I.V.:20] Out: 1100 [Urine:1100] No intake/output data recorded. Physical Exam: Neuro: BUE: 4-5/5 strength throughout, sensation intact; RLE: 4/5 ankle flexion, 4/5 knee flexion, 4/5 hip flexion; LLE: 4/5 throughout; sensation intact bilatereally Cardiac: regular rate and rhythm Pulses: 2+ and symmetric Palpable DP bilaterally, palpable L radial Lungs: NLB on CPAP at time of evaluation Abdomen: normal findings: soft, non-tender Assessment/Plan Principal Problem: Dissection of aorta, unspecified portion of aorta (HCC) Active Problems: Dissection of thoracoabdominal aorta (CMS/HCC) (HCC) Epistaxis Pneumonia HTN (hypertension) HTN (hypertension) Assessment & Plan Hx of uncontrolled HTN, non-compliant to medications. - Need to avoid hypotension in post TEVAR period. - SBP goal less than 180. - Currently on Coreg 12.5mg BID. Pneumonia Assessment & Plan Tracheal aspirate 05/05 with Haemophilus Inf - susana(05/04 - 05/10), linezolid (05/04-05/06) Epistaxis Assessment & Plan Significant nose bleed in the OR requiring intra-op ENT c/s. DL performed, no other sources of bleeding visualized. ACT post protamine 149. - ENT following - ocean spray tid - no other s/s bleeding Dissection of thoracoabdominal aorta (CMS/HCC) (HCC) Assessment & Plan Patient presented on 05/01 with acute Chest [...] removed 05/10 - LE weakness now recovering. - 05/14: SICU to floor, good pulses b/l, warm, well perfused - Goal SBP less than 180. - Neurology following. - PT/OT. Cosigned by Faustino Herrera MD at 05/16/2023 7:44 AM ELECTRO OPTICS ENGINEER TRO OPTICS ENGINEER TRO OPTICS ENGINEER * Sonia Clayton MD - 05/14/2023 3:17 PM CST Vascular Surgery Daily Progress Patient Name/MRN: Eriberto Chau [id number] Treatment Team: Vascular Surgery Attending: Faustino Herrera MD Today's Date: 05/14/2023 Room/Bed: [place] [id number] Admit Date: 05/01/2023 Code Status: Full Code Subjective Chief complaint: abdominal pain Events During This Hospitalization: [place] 05/01 Sx TBAD 32M PMH uncontrolled HTN (non-adherence) p/w acute CP, abd pain, and SOB x 6 hours. Woke up around 1AM with symptoms and presented to [facility]. 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 On arrival, endorses n/v and persistent CP/abdominal pain. On nicardipine/esmolol gtt. 05/02: TEVAR 05/05-05/10: Lumbar drain due to loss of LE motor function, recovered motor strength, sensation always intact 05/14: SICU to floor, doing well, well perfused, labs wnl Events Over Last 24 Hours: SICU to floor yesterday NAEON, AFVSS, doing well, no BM yet Good pulses b/l DP/PT and well perfused extremities Hutton out today and VC 6h after Allergies Allergen Reactions Amoxicillin Hives Current Facility-Administered Medications Medication Dose Route Frequency Provider Last Rate Last Admin acetaminophen (TYLENOL) tablet 1,000 mg 1,000 mg oral Q6H [facility] Dustin Souza DO 1,000 mg at 05/14/23 1110 albuterol HFA (PROVENTIL HFA,VENTOLIN HFA,PROAIR HFA) 90 mcg/actuation inhaler 2 puff 2 puff inhalation Q4H PRN (RT) Dustin Souza DO aspirin chewable tablet 81 mg 81 mg oral Daily Dustin Souza DO 81 mg at 05/14/23 0823 camphor-menthoL (SARNA) 0.5-0.5 % lotion topical Q6H PRN Dustin Souza DO Given at 05/08/23 0535 Carrier Fluids for Secondary Infusion - 0.9% Sodium Chloride 30 mL intravenous PRN Dustin Souza, DO 30 mL at 05/03/23 0855 carvediloL (COREG) tablet 12.5 mg 12.5 mg oral BID Dustin Souza DO 12.5 mg at 05/14/23 0823 gabapentin (NEURONTIN) capsule 300 mg 300 mg oral TID Dustin Souza DO 300 mg at 05/14/23 0823 heparin 5,000 unit/mL injection 5,000 Units 5,000 Units subcutaneous Q8H SUSAN Dustin Souza DO 5,000 Units at 05/14/23 1350 hydrOXYzine (ATARAX) tablet 25 mg 25 mg oral QID PRN Dustin Souza DO 25 mg at 05/13/23 2126 lidocaine (ASPERCREME) 4 % patch 2 patch 2 patch transdermal Daily Gonzalez Johns MD 2 patch at 05/13/23 2125 methocarbamoL (ROBAXIN) tablet 750 mg 750 mg oral TID PRN Gonzalez Johns MD 750 mg at 05/14/23 0823 ondansetron (ZOFRAN) injection 4 mg 4 mg intravenous Q6H PRN Dustin Souza DO 4 mg at 05/08/23 2141 oxyCODONE (ROXICODONE) tablet 10 mg 10 mg oral Q3H PRN Dustin Souza DO 10 mg at 05/14/23 1110 polyethylene glycol (MIRALAX) packet 17 g 17 g oral BID Gonzalez Johns MD 17 g at 05/14/23 0822 QUEtiapine (SEROquel) tablet 75 mg 75 mg oral Nightly Dustin Souza DO 75 mg at 126 senna-docusate (PERICOLACE) 8.6-50 mg per tablet 2 tablet 2 tablet oral BID Gonzalez Johns MD 2 tablet at 05/14/23 0823 sodium chloride (OCEAN) 0.65 % nasal spray 2 spray 2 spray each nostril Q2H while awake Dustin Souza DO 2 spray at 05/14/23 1351 tamsulosin (FLOMAX) extended release capsule 0.4 mg 0.4 mg oral Daily Dustin Souza, DO 0.4 mg at 05/14/23 0823 Objective Vitals: 24hr Min/Max: Temp Min: 36.1 ??C (97 ??F) Max: 38.1 ??C (100.6 ??F) Pulse Min: 70 Max: 88 BP Min: 139/80 Max: 168/89 Resp Min: 16 Max: 29 SpO2 Min: 95 % Max: 100 % Most Recent : Vitals: 05/14/23 1203 BP: 151/85 Pulse: 78 Resp: 16 Temp: 36.5 ??C (97.7 ??F) SpO2: 98% I/O last 2 completed shifts: In: 820 [P.O.:820] Out: 1200 [Urine:1200] I/O this shift: In: 507 [P.O.:487; I.V.:20] Out: 150 [Urine:150] Physical Exam: Neuro: BUE: 4-5/5 strength throughout, sensation intact; RLE: 4/5 ankle flexion, 4/5 knee flexion, 4/5 hip flexion; LLE: 4/5 throughout; sensation intact bilatereally Cardiac: regular rate and rhythm Pulses: 2+ and symmetric Palpable DP bilaterally, palpable L radial Lungs: NLB on CPAP at time of evaluation Abdomen: normal findings: soft, non-tender Assessment/Plan Principal Problem: Dissection of aorta, unspecified portion of aorta (HCC) Active Problems: Dissection of thoracoabdominal aorta (CMS/HCC) (HCC) Epistaxis Pneumonia HTN (hypertension) HTN (hypertension) Assessment & Plan Hx of uncontrolled HTN, non-compliant to medications. - Need to avoid hypotension in post TEVAR period. - SBP goal less than 180. - Currently on Coreg 12.5mg BID. Pneumonia Assessment & Plan Tracheal aspirate 05/05 with Haemophilus Inf - susana(05/04 - 05/10), linezolid (05/04-05/06) Epistaxis Assessment & Plan Significant nose bleed in the OR requiring intra-op ENT c/s. DL performed, no other sources of bleeding visualized. ACT post protamine 149. - ENT following - ocean spray tid - no other s/s bleeding Dissection of thoracoabdominal aorta (CMS/HCC) ([facility]) Assessment & Plan Patient presented on 05/01 with acute Chest [...] removed 05/10 - LE weakness now recovering. - 05/14: SICU to floor, good pulses b/l, warm, well perfused - Goal SBP less than 180. - Neurology following. - PT/OT. Cosigned by Faustino Herrera MD at 05/14/2023 4:44 PM ELECTRO OPTICS ENGINEER TRO OPTICS ENGINEER TRO OPTICS ENGINEER * Gonzalez Johns MD - 05/13/2023 6:55 PM CST Vascular Surgery Accept Note Subjective ICU Course: Orignally came after Dissection of aorta now s/p TEVAR and L subclavain stent. His course was c/b concern for spinal cord ischemia with drain placed since removed and neuroexam has improved. Attempted a hutton trial that has failed. He was also positive for H. Flu and has completed a courseof meropenum Otherwise has been Hypertensive but staying below goal of <180 with coreg. On arrival to the floor he is not in significant pain and eating two chicken sandwiches without issues. Though says that he does have pain lying down at night. Objective Arrival Vitals Temp 05/01/23 0759 36.6 ??C (97.9 ??F) Pulse 05/01/23 0500 70 Resp 05/01/23 0500 12 BP 05/01/23 0500 (!) 187/118 SpO2 05/01/23 0500 98 % Temp src 05/01/23 0759 Axillary Heart Rate Source 05/01/23 1029 Monitor Patient Position 05/01/23 1224 Lying BP Location 05/01/23 1224 Left arm FiO2 (%) 05/01/23 2300 (!) 6 % Vitals: 05/13/23 1810 BP: Pulse: 78 Resp: Temp: SpO2: 100% Physical Exam: General: awake and alert Neuro: BUE: 5/5 strength throughout, sensation intact; BLE: 5/5 throughout; sensation intact bilatereally Cardiac: regular rate and rhythm Pulses: 2+ and symmetric Palpable DP bilaterally, palpable L radial Lungs: clear to auscultation BL Abdomen: normal findings: soft, non-tender Plan: HTN (hypertension) Assessment & Plan Hx of uncontrolled HTN, non-compliant to medications. - Need to avoid hypotension in post TEVAR period. - SBP goal less than 180. - Currently on Coreg 12.5mg BID. Pneumonia Assessment & Plan Tracheal aspirate 05/05 with Haemophilus Inf - susana(05/04 - 05/10), linezolid (05/04-05/06) Epistaxis Assessment & Plan Significant nose bleed in the OR requiring intra-op ENT c/s. DL performed, no other sources of bleeding visualized. ACT post protamine 149. - ENT following - ocean spray tid - no other s/s bleeding Dissection of thoracoabdominal aorta (CMS/HCC) (HCC) Assessment & Plan Patient presented on 05/01 with acute Chest [...] removed 05/10 - LE weakness now recovering. - Goal SBP less than 180. - Neurology following. - PT/OT. TRO OPTICS ENGINEER * Kim Bello, PT - 05/13/2023 11:33 AM CST Physical Therapy Physical Therapy Progress [...] treatment team and contact the PT or SPORT INTERN currently assigned to this patient. If a physical therapy clinician is not assigned to this patient, please call [phone]. 05/13/23 1133 PT Last Visit Session Type Treatment PT Received On 05/13/23 Safe Environment Arm band checked;Patient found sitting in chair;Gait belt not utilized, see comment Subjective Agreeable to Therapy Family/Caregiver Present Yes Precautions Precautions Fall risk Activity Tolerance Activity Tolerance Comments HARDEEP: FL Pain Assessment Pain Assessment 0-10 Pain Score 5 - Moderate pain Pain Location Back (Lumbar) Pain Interventions Medication (See MAR);Repositioned;RN Notified Cognition Arousal/Alertness Alert Orientation Oriented X4 (person, place, time, situation) Following Commands Follows all commands and directions without difficulty Balance Balance Yes Static Standing Balance Static Standing-Balance Support Bilateral upper extremity supported Static Standing-Standing Surface Floor Static Standing-Level of Assistance Close supervision Static Standing-Comment/# of Minutes with WW ICU Mobility Scale ICU Mobility Scale 8 Bed Mobility Bed Mobility No Transfers Transfer Yes Transfer 1 Transfer From 1 Sit Transfer Type 1 To and from Transfer to 1 Stand Technique 1 Sit to stand Transfer Device 1 Wheeled walker Transfer Level of Assistance 1 Standby Assist Ambulation Ambulation Yes Ambulation 1 Distance (ft) 1 500 Surface 1 Level tile Device 1 Wheeled walker Assistance 1 Standby Assist Gait: Requires verbal cues to 1 Use assistive device safely;Prevent bumping into environmental barriers (simmons/furniture);Improve upright posture;Pace activity Gait Deviations 1 Leanne - decreased;Posture - flexed Basic Mobility - 6 Click How much difficulty does the patient have: Turning over in bed 3 How much difficulty does the patient currently have: Sitting down and standing up from a chair witharms? 3 How much difficulty does the patient have: Moving from lying on back to sitting on the side of the bed? 3 How much difficulty does the patient have: Moving to and from a bed to a chair including wheelchair? 3 How much help does the patient currently need: Walk in hospital room? 3 How much help from another person does the patient currently need: Climbing 3-5 steps with a railing? 3 Total 6 Click Score (range 6-24) 18 Score Interpretation 41.05 Safe Environment End of Therapy Session Safe Environment End of Therapy Session Patient left in recliner;RN notified;Call light within reach Assessment Prognosis Good Plan Plan Alter current plan;If this is the last note, consider this the discharge summary Recommendation/Plan PT Recommendation/Plan Home with family PT Frequency during current admission 3-5x/wk PT Equipment Recommended Wheeled walker Progress during current admission Progressing toward goals PT - Next Appointment 05/16/23 Multi-Disciplinary Problems (from Physical Therapy) Active Problems Problem: Mobility Start Date: 05/10/23 Goal Start Date Expected End Date End Date LTG - Patient will ambulate community distance 05/10/23 06/10/23 -- Goal Details: independent Goal Start Date Expected End Date End Date STG - Patient will ambulate 05/10/23 05/20/23 -- Goal Details: 300' with no AD and SBA Goal Start Date Expected End Date End Date STG - Patient will ascend and descend a flight of stairs 05/10/23 05/20/23 -- Goal Details: with rail and Min A Problem: Transfers Start Date: 05/10/23 Goal Start Date Expected End Date End Date STG - Transfer from bed to chair 05/10/23 05/20/23 -- Goal Details: SBA Goal Start Date Expected End Date End Date STG - Patient to transfer to and from sit to supine 05/10/23 05/20/23 -- Goal Details: SBA Goal Start Date Expected End Date End Date STG - Patient will transfer sit to and from stand 05/10/23 05/20/23 -- Goal Details: SBA Problem: PT Misc Start Date: 05/10/23 Goal Start Date Expected End Date End Date PT STG - Patient and caregivers will participate in and demonstrate understanding of therapeutic exercise and safe mobility strategies to improve independence with functional mobility. 05/10/23 05/20/23 -- TRO OPTICS ENGINEER * Tegan Dye, OT - 05/13/2023 8:03 AM CST Occupational Therapy Progress Note NOTE: This is a summary note of the grande components of the treatment session. For full details, review chart for all flowsheets documented on by this occupational therapy clinician on this date. Vitalsigns documented in vital signs flowsheet. Care plan progress documented in Care Plan Activity. For questions, please review the treatment team and contact the occupational therapist currently assigned to this patient. If an occupational therapist is not assigned to this patient, please call [phone]. 05/13/23 0803 General Session Type Treatment OT Received On 05/13/23 Safe Environment Arm band checked;Patient found sitting in chair;Session completed bedside;Gait belt not utilized, see comment Subjective Agreeable to Therapy Family/Caregiver Present No Precautions Precautions Fall risk Pain Assessment Pain Assessment 0-10 Pain Score 9 Patient's Stated Pain Goal No pain Pain Type Acute pain Pain Location Abdomen Pain Orientation Generalized Pain Interventions RN Notified ([place]) Balance Balance Yes Static Sitting Balance Static Sitting-Balance Support Feet supported;No upper extremity supported Static Sitting-Sitting Surface Chair Static Sitting-Level of Assistance Close supervision Static Sitting-Comment/# of Minutes SPV for safety Dynamic Sitting Balance Dynamic Sitting-Balance Support Feet supported;No upper extremity supported Dynamic Sitting-Balance Forward lean;Reaching for objects Dynamic Sitting-Sitting Surface Chair Dynamic Sitting-Level of Assistance Close supervision Dynamic Sitting-Comments SPV for safety during lower body dressing Static Standing Balance Static Standing-Balance Support No upper extremity supported Static Standing-Standing Surface Floor Static Standing-Level of Assistance Contact guard Static Standing-Comment/# of Minutes CGA for posterior support Dynamic Standing Balance Dynamic Standing-Balance Support No upper extremity supported Dynamic Standing-Standing Surface Floor Dynamic Standing-Level of Assistance Minimum assistance Dynamic Standing-Comments Min A for steadying assist during grooming in standing Grooming Grooming: Where assessed (standing at bedside table) Grooming: Level of assistance Minimum Assist (setup task, Min A balance) LE Dressing LE Dressing: Where assessed Sitting;Chair LE Dressing: Level of assistance Minimum Assist LE Dressing: Assistance with Pull up over hips;Fasteners Toileting Toileting: Where assessed Chair Toileting: Level of assistance Moderate Assist Toileting: Assistance with Clothing management up;Clothing management down;Posterior Bed Mobility Bed Mobility No Transfers Transfer Yes Transfer 1 Transfer From 1 Sit Transfer Type 1 To and from Transfer to 1 Chair with arms Technique 1 Sit to stand;Stand to sit Transfer Device 1 Hand held assist Transfer Level of Assistance 1 Contact Guard Assist Trials/Comments 1 CGA for steadying assist, verbal cues for hand placement Toilet Transfers Toilet Transfer From Chair with arms Toilet Transfer Type To and from Toilet Transfer to (simulated edge of bed) Toilet Transfer Technique (stand to sit;sit to stand) Toilet Transfer: Equipment No device Toilet Transfers Minimal assistance Toilet Transfers Comments Min A for steadying assist, verbal cues for hand placement and sequencing Cognition Arousal/Alertness Alert;Appropriate responses to stimuli Attention Span Appears intact Current communication Appears Intact Orientation Oriented X4 (person, place, time, situation) Following Commands Follows all commands and directions without difficulty Safety Judgment Good awareness of safety precautions Awareness of Errors Good awareness of errors made Insight Fully aware of deficits Problem Solving Able to problem solve independently Compliance/Behavior Easy to engage Perseveration Not present Activity Tolerance Activity Tolerance Comments HARDEEP: grooming, somewhat hard Daily Activity - 6 Clicks Putting on and taking off regular lower body clothing 3 Bathing 2 Toileting 2 Putting on and taking off upper body clothing 3 Personal Grooming 3 Eating Meals 3 Total Score (range 6-24) 16 Score Interpretation 35.96 Safe Environment End of Therapy Session Safe Environment End of Therapy Session Patient left in recliner;Call light within reach;RN notified Assessment Problem List Decreased endurance;Decreased cognition;Decreased balance;Decreased functional mobility;Decreased ADL independence;Decreased IADL independence Barriers to Discharge Current Mobility Status Plan Plan If this is the last note, consider this the discharge summary;Alter current plan Plan Comments updating discharge recommendation to reflect patient progress Recommendation/Plan OT Recommendation Home Health OT;Home with 24 hour supervision Patient at high risk for Falls;Readmission;Injury due to decreased ability to care for self OT Frequency during current admission 3-5x/wk Treatment/Interventions during current admission ADL/IADL retraining;Balance Training;Bed mobility;Endurance training;Functional activity;Functional mobility training;Functional transfer training;Therapeutic activity;Therapeutic exercise;Transfer training Progress during current admission Progressing toward goals OT - Next Appointment 05/16/23 Multi-Disciplinary Problems (from Occupational Therapy) Active Problems Problem: Dressings Lower Extremities Start Date: 05/11/23 Goal Start Date Expected End Date End Date STG - Patient to complete lower body dressing 05/11/23 05/27/23 -- Goal Details: With supervision Problem: Grooming Start Date: 05/11/23 Goal Start Date Expected End Date End Date STG - Patient will complete grooming 05/11/23 05/27/23 -- Goal Details: Standing at sink with supervision Problem: Toileting Start Date: 05/11/23 Goal Start Date Expected End Date End Date STG - Patient will complete toileting tasks with 05/11/23 05/27/23 -- Goal Details: supervision Problem: Transfers Start Date: 05/11/23 Goal Start Date Expected End Date End Date STG - Patient will perform toilet transfer 05/11/23 05/27/23 -- Goal Details: To toilet in bathroom with supervision Problem: OT Misc Start Date: 05/11/23 Goal Start Date Expected End Date End Date OT LTG - Misc 1 05/11/23 06/01/23 -- Goal Details: Pt will be independent in ADLS TRO OPTICS ENGINEER * Flex Parsons MD - 05/13/2023 5:47 AM CST Vascular Surgery Daily Progress Patient Name/MRN: Eriberto Chau [id number] Treatment Team: Vascular Surgery- Pager: [phone] Attending: Faustino Herrera MD Today's Date: 05/13/2023 Room/Bed: [id number] Admit Date: 05/01/2023 Code Status: Full Code Subjective Chief complaint: Type B aortic dissection Events During This Hospitalization: 05/02: TEVAR, L subclavian stent placement Events Over Last 24 Hours: - remains on RA this AM and satting well - walked with PT yesterday, - WBC down to 13 Objective Vitals: 24hr Min/Max: Temp Min: 36.3 ??C (97.3 ??F) Max: 37 ??C (98.6 ??F) Pulse Min: 61 Max: 89 BP Min: 117/81 Max: 192/101 Resp Min: 9 Max: 39 SpO2 Min: 91 % Max: 100 % Most Recent : Vitals: 05/13/23 0500 BP: 165/88 Pulse: 81 Resp: 15 Temp: SpO2: 93% I/O last 2 completed shifts: In: 880 [P.O.:480; Blood:350; IV Piggyback:50] Out: 1974 [Urine:1974] I/O this shift: In: - Out: 1125 [Urine:1125] Physical Exam: General: awake and alert Neuro: BUE: 4-5/5 strength throughout, sensation intact; RLE: 4/5 ankle flexion, 4/5 knee flexion, 4/5 hip flexion; LLE: 4/5 throughout; sensation intact bilatereally Cardiac: regular rate and rhythm Pulses: 2+ and symmetric Palpable DP bilaterally, palpable L radial Lungs: NLB on CPAP at time of evaluation Abdomen: normal findings: soft, non-tender Lab/Radiology/Diagnostic Review: Laboratory review: Lab results in the last 12 hours: Recent Results (from the past 12 hour(s)) CBC without differential Collection Time: 05/13/23 12:10 AM Result Value Ref Range WBC 13.2 (H) 3.8 - 9.9 K/cumm Hgb 10.2 (L) 13.0 - 17.5 g/dL Hct 32.0 (L) 38.9 - 50.3 % Plt 550 (H) 150 - 400 K/cumm MPV 9.7 9.1 - 12.3 fL RBC 3.50 (L) 4.30 - 5.80 M/cumm MCV 91.4 81.3 - 96.4 fL MCH 29.1 27.1 - 33.3 pg MCHC 31.9 (L) 32.3 - 35.7 g/dL RDW CV 13.2 11.1 - 14.9 % RDW SD 44.3 35.7 - 48.1 fL NRBC abs 0.00 0.00 - 0.01 K/cumm Basic metabolic panel Collection Time: 05/13/23 12:10 AM Result Value Ref Range Sodium 137 135 - 145 mmol/L Potassium, pl 3.8 3.3 - 4.9 mmol/L Chloride 100 97 - 110 mmol/L CO2 25 22 - 32 mmol/L Anion gap 12 2 - 15 mmol/L BUN 16 6 - 25 mg/dL Creatinine 0.84 0.80 - 1.30 mg/dL Glucose 111 70 - 199 mg/dL Calcium 9.1 8.5 - 10.3 mg/dL Magnesium Collection Time: 05/13/23 12:10 AM Result Value Ref Range Magnesium 2.2 1.4 - 2.5 mg/dL Phosphorus Collection Time: 05/13/23 12:10 AM Result Value Ref Range Phosphorus, pl 3.3 2.3 - 4.5 mg/dL Protime-INR Collection Time: 05/13/23 12:10 AM Result Value Ref Range PT 15.5 (H) 10.3 - 13.7 sec INR 1.36 (H) 0.90 - 1.20 aPTT Collection Time: 05/13/23 12:10 AM Result Value Ref Range aPTT 33 28 - 38 sec Type and screen Collection Time: 05/13/23 12:10 AM Result Value Ref Range Ellen, indirect Negative ABO Rh A Positive eGFR Collection Time: 05/13/23 12:10 AM Result Value Ref Range eGFR >90 >=60 mL/min/1.73 m2 Assessment/Plan Principal Problem: Dissection of aorta, unspecified portion of aorta (HCC) Active Problems: Dissection of thoracoabdominal aorta (CMS/HCC) (HCC) Problem List Cardiac and Vasculature * (Principal) Dissection of aorta, unspecified portion of aorta (HCC) Current Assessment & Plan 32y/o male with uncontrolled HTN who presented to an OSH ER with acute onset shortness of breath, chest pain and back pain. 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 He was transferred to [facility] for further evaluation and treatment. Here, he was seen by vascular surgery and admitted to the CTICU for impulse control. He had recurrent worsening pain and a repeat CTA this morning. This showed ???interval cranial propagation of a type B thoracic aortic dissection which now extends from approximately zone 3 to theleft common iliac artery; no change in aortic caliber; this dissection may originate in the midthoracic aorta, or fenestration is present at the level of T4; increasing fat stranding about the aorticarch and great vessels, likely reactive in the setting of dissection propagation, no extraluminal contrast present to suggest aortic rupture?? , for which CTS was consulted. CTA reviewed with Daniel Balderas, and Mesha. All feel these findings not to be telephone service representative of a type a dissection, therefore no urgent cardiac surgery is recommended. However, he is continuing to have significant pain despite BP control and pain medications, in addition to the propagationof the dissection. Recommend reaching back out to vascular surgery to consider a vascular intervention. I have called the on-call vascular fellow and left a voicemail. Echo ordered stat. This showed LVEF of 41%, dilated atria, dilated IVC, normal aortic root size, nopericardial effusion. As above, recommend following up with vascular surgery. Please get stat chest abdomen pelvis CTA if any clinical or neurological changes. Continue impulse control. Consider cardiology consult in the setting of difficult to control, longstanding hypertension and findings of HFrEF with LVEF of 41%. Relevant Orders Critical Care (Completed) Central Line (Completed) Intubation (Completed) Insert arterial line (Completed) Lumbar Puncture (Completed) Dissection of thoracoabdominal aorta (CMS/HCC) (HCC) Relevant Orders CV Hybrid Room (Default Orderable) (Completed) Insert arterial line (Completed) Critical Care (Completed) Critical Care (Completed) Critical Care (Completed) Critical Care (Completed) Critical Care (Completed) Critical Care (Completed) 32 yo M who presented with Type B aortic dissection with worsening pain, now s/p TEVAR and L subclavian artery stent. Now with concern for lumbar spinal ischemia. He has had improving lower extremitystrength after MAP augmentation and lumbar drain placement. - q2h lower extremity neurovascular checks - Goal SBP 140-180 - Hgb > 10, Plt > 100 - f/u cardiology (Dr Abarca) consult recs - PT/OT - TTF Flex Parsons MD, MSc [phone] For patients or family members viewing this note through [employer] programs: This note was written as a [...] care. Cosigned by Faustino Herrera MD at 05/14/2023 4:44 PM ELECTRO OPTICS ENGINEER TRO OPTICS ENGINEER TRO OPTICS ENGINEER * Nando Mijares MD - 05/13/2023 12:18 AM CST ICU Daily Progress Shifts: MD/DO Shift Options: CTI PM Blue 3 Subjective Patient is a 33 y.o. male admitted to the hospital on 05/01/2023 4:58 AM with/following: Interval History: 05/12 am - 1u prbc - SBP goal 140-180 - q2h nvc - d/c QLC - d/c bipap - okay to TTOU, make as floor ready as possible 05/12 pm - dilaudid x 1, atarax PRN Objective Medications: Scheduled Meds:acetaminophen, 1,000 mg, oral, Q6H SUSAN aspirin, 81 mg, oral, Daily carvediloL, 25 mg, oral, BID gabapentin, 300 mg, oral, TID heparin, 5,000 Units, subcutaneous, Q8H SUSAN lidocaine, 1 patch, transdermal, Daily polyethylene glycol, 17 g, oral, Daily QUEtiapine, 75 mg, oral, Nightly senna-docusate, 1 tablet, oral, BID sodium chloride, 2 spray, each nostril, Q2H while awake sodium chloride 0.9%, 0.5-20 mL, intra-catheter, Q8H SUSAN tamsulosin, 0.4 mg, oral, Daily Continuous Infusions: Vitals: Temp: [36.3 ??C (97.3 ??F)-37.5 ??C (99.5 ??F)] 36.9 ??C (98.4 ??F) Pulse: [61-84] 84 BP: (117-192)/(54-133) 129/73 Resp: [12-39] 20 SpO2: [91 %-100 %] 95 % Fluid balance: I/O this shift: In: - Out: 755 [Urine:755] Intake/Output Summary (Last 24 hours) at 05/13/2023 0133 Last data filed at 05/13/2023 0000 Gross per 24 hour Intake 880 ml Output 1965 ml Net -1085 ml Ventilator settings: Hemodynamic parameters: PAP: -- CVP: -- PCWP: -- CO: -- CI: -- SVO2: -- Pacemaker Overdrive Pacing: -- Cardiac Rhythm: Normal sinus rhythm (05/13 0000) Pacer Mode: -- Physical exam: Neuro: AOx4, PERRL Cardiac: RRR, S1/S2, periphery warm, pulses palpable distally Resp: CTAB GI: abdomen round, soft, normal bowel sounds : hutton w/ clear yellow urine Skin: pink, warm, dry, midline sternotomy incision open to air, C/D/I MSK: UE strength intact b/l, LLE strength improving, 4/5 strength throughout LLE, 4/5 strength in RLE. LTDA: R radial a-line, PIV x3, Hutton Laboratory data: Recent Labs Lab Units 05/13/23 0010 05/12/23 1358 05/12/23 0012 WBC K/cumm 13.2* 13.0* 13.6* HEMOGLOBIN g/dL 10.2* 9.5* 8.6* HEMATOCRIT % 32.0* 29.0* 25.9* PLATELETS K/cumm 550* 478* 483* Recent Labs Lab Units 05/13/23 0010 05/12/23 0012 05/11/23 0014 SODIUM mmol/L 137 136 136 POTASSIUM PLASMA mmol/L 3.8 4.2 4.1 CHLORIDE mmol/L 100 102 100 CO2 mmol/L 25 24 23 BUN SERUM mg/dL 16 19 23 CREATININE mg/dL 0.84 0.96 1.24 CALCIUM mg/dL 9.1 8.8 8.9 Recent Labs Lab Units 05/13/23 0010 05/12/23 0012 05/11/23 0014 PROTIME (PT) sec 15.5* 15.3* 15.8* INR 1.36* 1.34* 1.39* APTT sec 33 28 36 Recent Labs Lab Units 05/11/23 0014 05/10/23 0037 05/09/23 0622 05/09/23 0036 PH ART 7.43 7.41 7.36 7.39 PCO2 ART mmHg 34* 34* -- 29* PO2 ART mmHg 110* 131* -- 108 PO2 ARTERIAL POC mmHg -- -- 103 -- BASE EXC ART mmol/L -1 -3 -- -6 Diagnostic review (radiology / micro / other): CXR personally reviewed-> no pulmonary edema, no consolidation, no ptx, no pleural effusions Impression and Plan: Active problems/Diagnoses: #Acute postoperative pain #Agitation - tylenol susan, prn oxy/HM for pain - prn atarax #Acute type B aortic dissection #C/f Spinal Cord Ischemia #Hypertension CT showed extension of the type B thoracic aortic aneurysm, terminates just above the bifurcation, with origins the left renal artery and celiac artery arising off the false lumen. 05/05 upon extubation pt LE exam w/ LLE ankle flexion only, RLE w/ antigravity knee flexion, c/f spinal cord ischemia - OR 05/02 for TEVAR - Vascular surgery following. -recs: Hgb >10, MAP >100, SBP <180 - Lumbar drain placed 05/05 w/ NSGY, clamp trial 05/09, removed 05/10 - clevidipine gtt (tachyphylaxis w/ esmolol) vs levo gtt to meet map goals - q2h NV checks - total spine MRI 05/07 w/ dorsal hematoma and assoc displacement of cauda equina nerve roots, no evidence of ischemia - Neurology c/s following 05/07, appreciate recs #Respiratory insufficiency, improved Expected postoperatively. History of desat and wheezing, after administration of sugammadex and zofran in the OR prior to attempt to extubate. Required albuterol and epi pushes. BP stable throughout event. Lungs clear on arrival. Episode of desat resolved with recruitment breaths. - Reintubated 05/07 for anesthesia, extubated after successful RSBI - CXR w improving volume overload #Obstructive sleep apnea - consider NPPV nightly #Epistaxis, resolved Significant nose bleed in the OR requiring intra-op ENT c/s. DL performed, no other sources of bleeding visualized. ACT post protamine 149. - ENT following - ocean spray tid - no other s/s bleeding #Nausea -prn ondansetron, compazine #Acute blood loss anemia #Thrombocytopenia - Daily CBC #TA H. Influenza - cont APAP q6h susan - TA 05/05 growing Haemophilus Inf - UA, BCx x2 - ngtd - susana(05/04 - 05/10), linezolid (05/04-05/06) ICU Standards of Care: Diet: reg diet DVT prophylaxis: SCDs, SQH PUD prophylaxis: PPI Dispo: ICU, TTOU Code status: Full code TDLA: PIVx3, R radial a-line, Hutton Nando Mijares MD Cosigned by Dalton Locke MD at 05/13/2023 12:59 PM ELECTRO OPTICS ENGINEER TRO OPTICS ENGINEER TRO OPTICS ENGINEER Associated attestation - Dalton Locke MD - 05/13/2023 12:59 PM ELECTRO OPTICS ENGINEER Attending Documentation: I have seen and examined this critically ill patient on the day of service. I have reviewed and confirmed the history, physical exam, laboratory and radiologic data with the house staff as documentedin the ICU Resident note. I have reviewed and discussed my treatment plan with the ICU team and other medical/sap security consultant staff, making frequent assessments and decisions regarding this patient's complex medical care. Critical care was necessary to treat or prevent imminent or life-threatening deterioration of the following conditions: Active problems: Aortic dissection s/p stenting Attending Impression / Plans: Looks like a brand new person. Up walking in the cantu, fully and pleasantly conversant. Transitioning to q4h neuro checks, transfer to floor today. Silverio Locke MD Seasonal Recruiter Department of Anesthesiology * Timmy Rosales - 05/12/2023 6:43 PM CST Fr Timmy Rosales [phone] 05/12/23 1800 Time Spent Start Time 1740 Stop Time 1750 Time Calculation (min) 10 min Patient Spiritual Assessment Spirituality Assessed Yes Rastafarian Affiliation Mu-Ism Active in Synagogue Yes Spiritual Needs Communion;Prayer Clinical Encounter Type Visited With Patient and family together Response Type Continuing visit Routine Visit Follow-up Continue Visiting Yes Reason for visit Sacramental;Support Sacramental Encounters Communion Patient wants communion Communion Given Indicator Yes Outcomes and Progress Aligning care with patient's values Achieved Preserve dignity and respect Achieved Demonstrating care and respect Achieved Interventions Interventions Active listening;Offer emotional support;Offer spiritual/alevism support;Prayer (Benediction) TRO OPTICS ENGINEER * Kim Bello, PT - 05/12/2023 9:06 AM CST Physical Therapy Physical Therapy Progress [...] treatment team and contact the PT or SPORT INTERN currently assigned to this patient. If a physical therapy clinician is not assigned to this patient, please call [phone]. 05/12/23 0906 PT Last Visit Session Type Treatment PT Received On 05/12/23 Safe Environment Arm band checked;Gait belt not utilized, see comment;Patient found sitting in chair Subjective Agreeable to Therapy Family/Caregiver Present No Precautions Precautions Fall risk Activity Tolerance Activity Tolerance Comments HARDEEP: SH Pain Assessment Pain Assessment 0-10 Pain Score 8 Pain Location Back (Lumbar) Pain Interventions Medication (See MAR);Repositioned;RN Notified Cognition Arousal/Alertness Alert Orientation Oriented X4 (person, place, time, situation) Following Commands Follows all commands and directions without difficulty Balance Balance Yes Static Standing Balance Static Standing-Balance Support Bilateral upper extremity supported Static Standing-Standing Surface Floor Static Standing-Level of Assistance Minimum assistance Static Standing-Comment/# of Minutes for safety, with PFW ICU Mobility Scale ICU Mobility Scale 8 Bed Mobility Bed Mobility No Transfers Transfer Yes Transfer 1 Transfer From 1 Sit Transfer Type 1 To and from Transfer to 1 Stand Technique 1 Sit to stand Transfer Device 1 Hand held assist Transfer Level of Assistance 1 Minimum Assist (assist x 2) Trials/Comments 1 manual assist for force production Ambulation Ambulation Yes Ambulation 1 Distance (ft) 1 200 Surface 1 Level tile Device 1 Platform walker Assistance 1 Minimum Assist Gait: Requires assist with 1 Maintaining balance Gait: Requires verbal cues to 1 Use assistive device safely;Prevent bumping into environmental barriers (simmons/furniture);Pace activity;Improve upright posture Gait Deviations 1 Posture - flexed;Leanne - decreased Basic Mobility - 6 Click How much difficulty does the patient have: Turning over in bed 3 How much difficulty does the patient currently have: Sitting down and standing up from a chair witharms? 3 How much difficulty does the patient have: Moving from lying on back to sitting on the side of the bed? 3 How much difficulty does the patient have: Moving to and from a bed to a chair including wheelchair? 3 How much help does the patient currently need: Walk in hospital room? 3 How much help from another person does the patient currently need: Climbing 3-5 steps with a railing? 2 Total 6 Click Score (range 6-24) 17 Score Interpretation 39.67 Safe Environment End of Therapy Session Safe Environment End of Therapy Session Patient left in recliner;RN notified;Call light within reach Assessment Prognosis Good Plan Plan Continue with current plan;If this is the last note, consider this the discharge summary Recommendation/Plan PT Recommendation/Plan Inpatient Rehab Facility Patient at high risk for Falls;Readmission;Injury due to reduced functional status Recommend Inpatient Rehab/Acute Rehab due to Not at baseline due to impaired ability to complete ADLs;Impaired ability to complete functional mobility;Highly motivated to participate in therapy PT Frequency during current admission 5-7x/wk Progress during current admission Progressing toward goals PT - Next Appointment 05/13/23 Multi-Disciplinary Problems (from Physical Therapy) Active Problems Problem: Mobility Start Date: 05/10/23 Goal Start Date Expected End Date End Date LTG - Patient will ambulate community distance 05/10/23 06/10/23 -- Goal Details: independent Goal Start Date Expected End Date End Date STG - Patient will ambulate 05/10/23 05/20/23 -- Goal Details: 300' with LRD and SBA Goal Start Date Expected End Date End Date STG - Patient will ascend and descend a flight of stairs 05/10/23 05/20/23 -- Goal Details: with rail and Min A Problem: Transfers Start Date: 05/10/23 Goal Start Date Expected End Date End Date STG - Transfer from bed to chair 05/10/23 05/20/23 -- Goal Details: SBA Goal Start Date Expected End Date End Date STG - Patient to transfer to and from sit to supine 05/10/23 05/20/23 -- Goal Details: SBA Goal Start Date Expected End Date End Date STG - Patient will transfer sit to and from stand 05/10/23 05/20/23 -- Goal Details: SBA Problem: PT Misc Start Date: 05/10/23 Goal Start Date Expected End Date End Date PT STG - Patient and caregivers will participate in and demonstrate understanding of therapeutic exercise and safe mobility strategies to improve independence with functional mobility. 05/10/23 05/20/23 -- TRO OPTICS ENGINEER * Flex Parsons MD - 05/12/2023 5:46 AM CST Vascular Surgery Daily Progress Patient Name/MRN: Eriberto Chau [id number] Treatment Team: Vascular Surgery- Pager: [phone] Attending: Faustino Herrera MD Today's Date: 05/12/2023 Room/Bed: [place] [id number] Admit Date: 05/01/2023 Code Status: Full Code Subjective Chief complaint: Type B aortic dissection Events During This Hospitalization: 05/02: TEVAR, L subclavian stent placement Events Over Last 24 Hours: - continues to have stable neuro exam today, symmetric - remains on RA this AM and satting well - pressures improved - WBC 13.6 from 17 - CTA yesterday, some fenestration but otherwise looks stable Objective Vitals: 24hr Min/Max: Temp Min: 36.8 ??C (98.2 ??F) Max: 37.5 ??C (99.5 ??F) Pulse Min: 73 Max: 106 BP Min: 113/66 Max: 166/73 Resp Min: 12 Max: 25 SpO2 Min: 90 % Max: 100 % Most Recent : Vitals: 05/12/23 0500 BP: 149/84 Pulse: 73 Resp: 13 Temp: SpO2: 94% I/O last 2 completed shifts: In: 1609 [P.O.:760; I.V.:739; IV Piggyback:110] Out: 2890 [Urine:2890] I/O this shift: In: - Out: 1110 [Urine:1110] Physical Exam: General: awake and alert Neuro: BUE: 4-5/5 strength throughout, sensation intact; RLE: 4/5 ankle flexion, 4/5 knee flexion, 4/5 hip flexion; LLE: 4/5 throughout; sensation intact bilatereally Cardiac: regular rate and rhythm Pulses: 2+ and symmetric Palpable DP bilaterally, palpable L radial Lungs: NLB on CPAP at time of evaluation Abdomen: normal findings: soft, non-tender Lab/Radiology/Diagnostic Review: Laboratory review: Lab results in the last 12 hours: Recent Results (from the past 12 hour(s)) CBC without differential Collection Time: 05/12/23 12:12 AM Result Value Ref Range WBC 13.6 (H) 3.8 - 9.9 K/cumm Hgb 8.6 (L) 13.0 - 17.5 g/dL Hct 25.9 (L) 38.9 - 50.3 % Plt 483 (H) 150 - 400 K/cumm MPV 9.6 9.1 - 12.3 fL RBC 2.82 (L) 4.30 - 5.80 M/cumm MCV 91.8 81.3 - 96.4 fL MCH 30.5 27.1 - 33.3 pg MCHC 33.2 32.3 - 35.7 g/dL RDW CV 13.5 11.1 - 14.9 % RDW SD 45.5 35.7 - 48.1 fL NRBC abs 0.00 0.00 - 0.01 K/cumm Basic metabolic panel Collection Time: 05/12/23 12:12 AM Result Value Ref Range Sodium 136 135 - 145 mmol/L Potassium, pl 4.2 3.3 - 4.9 mmol/L Chloride 102 97 - 110 mmol/L CO2 24 22 - 32 mmol/L Anion gap 10 2 - 15 mmol/L BUN 19 6 - 25 mg/dL Creatinine 0.96 0.80 - 1.30 mg/dL Glucose 113 70 - 199 mg/dL Calcium 8.8 8.5 - 10.3 mg/dL Magnesium Collection Time: 05/12/23 12:12 AM Result Value Ref Range Magnesium 2.3 1.4 - 2.5 mg/dL Phosphorus Collection Time: 05/12/23 12:12 AM Result Value Ref Range Phosphorus, pl 2.6 2.3 - 4.5 mg/dL Protime-INR Collection Time: 05/12/23 12:12 AM Result Value Ref Range PT 15.3 (H) 10.3 - 13.7 sec INR 1.34 (H) 0.90 - 1.20 aPTT Collection Time: 05/12/23 12:12 AM Result Value Ref Range aPTT 28 28 - 38 sec Triglycerides Collection Time: 05/12/23 12:12 AM Result Value Ref Range Triglycerides 183 (H) <=149 mg/dL Potassium, whole blood Collection Time: 05/12/23 12:12 AM Result Value Ref Range Potassium, bld 4.1 3.3 - 4.9 mmol/L eGFR Collection Time: 05/12/23 12:12 AM Result Value Ref Range eGFR >90 >=60 mL/min/1.73 m2 Assessment/Plan Principal Problem: Dissection of aorta, unspecified portion of aorta (HCC) Active Problems: Dissection of thoracoabdominal aorta (CMS/HCC) (HCC) Problem List Cardiac and Vasculature * (Principal) Dissection of aorta, unspecified portion of aorta (HCC) Current Assessment & Plan 32y/o male with uncontrolled HTN who presented to an OSH ER with acute onset shortness of breath, chest pain and back pain. 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 He was transferred to [facility] for further evaluation and treatment. Here, he was seen by vascular surgery and admitted to the CTICU for impulse control. He had recurrent worsening pain and a repeat CTA this morning. This showed ???interval cranial propagation of a type B thoracic aortic dissection which now extends from approximately zone 3 to theleft common iliac artery; no change in aortic caliber; this dissection may originate in the midthoracic aorta, or fenestration is present at the level of T4; increasing fat stranding about the aorticarch and great vessels, likely reactive in the setting of dissection propagation, no extraluminal contrast present to suggest aortic rupture?? , for which CTS was consulted. CTA reviewed with Daniel Balderas, and Mesha. All feel these findings not to be telephone service representative of a type a dissection, therefore no urgent cardiac surgery is recommended. However, he is continuing to have significant pain despite BP control and pain medications, in addition to the propagationof the dissection. Recommend reaching back out to vascular surgery to consider a vascular intervention. I have called the on-call vascular fellow and left a voicemail. Echo ordered stat. This showed LVEF of 41%, dilated atria, dilated IVC, normal aortic root size, nopericardial effusion. As above, recommend following up with vascular surgery. Please get stat chest abdomen pelvis CTA if any clinical or neurological changes. Continue impulse control. Consider cardiology consult in the setting of difficult to control, longstanding hypertension and findings of HFrEF with LVEF of 41%. Relevant Orders Critical Care (Completed) Central Line (Completed) Intubation (Completed) Insert arterial line (Completed) Lumbar Puncture (Completed) Dissection of thoracoabdominal aorta (CMS/HCC) (HCC) Relevant Orders CV Hybrid Room (Default Orderable) (Completed) Insert arterial line (Completed) Critical Care (Completed) Critical Care (Completed) 32 yo M who presented with Type B aortic dissection with worsening pain, now s/p TEVAR and L subclavian artery stent. Now with concern for lumbar spinal ischemia. He has had improving lower extremitystrength after MAP augmentation and lumbar drain placement. - q2h lower extremity neurovascular checks - Goal SBP 140-180 - Hgb > 10, Plt > 100 --> please transfuse 1 RBC today for Hgb of 8.6 - f/u cardiology (Dr Abarca) consult recs - PT/OT - TTOU Flex Parsons MD, MSc [phone] For patients or family members viewing this note through [employer] programs: This note was written as a [...] care. Cosigned by Faustino Herrera MD at 05/12/2023 1:18 PM ELECTRO OPTICS ENGINEER TRO OPTICS ENGINEER TRO OPTICS ENGINEER * ToMeron MD - 05/12/2023 1:[address] ICU Daily Progress Shifts: MD Shift Options: CTI Blue 3 PM Subjective Patient is a 33 y.o. male admitted to the hospital on 05/01/2023 4:58 AM with/following: Type B Aortic dissection ICU events 05/02: TEVAR 05/03: R IJ CVC 05/05: c/f spinal cord ischemia, lumbar drain placed Overnight events: 05/11 AM - Replace hutton if pt still unable to void-->bladder scan >500 mL, replaced hutton - Repeat CTA c/a/p--> enlarging aneurysm sac around L common iliac 3.7 (from 3.2) some kinking around L subclavian stent, vascular aware reviewed images Tigrejohn says looks fine - Coreg 25 BID, wean nicardipine - D/c A line, d/c robaxin - Decrease seroquel 05/11 pm - glydo for hutton comfort Objective Medications: Scheduled Meds:acetaminophen, 1,000 mg, oral, Q6H SUSAN aspirin, 81 mg, oral, Daily carvediloL, 25 mg, oral, BID gabapentin, 300 mg, oral, TID heparin, 5,000 Units, subcutaneous, Q8H SUSAN lidocaine, 1 patch, transdermal, Daily polyethylene glycol, 17 g, oral, Daily QUEtiapine, 50 mg, oral, Daily QUEtiapine, 75 mg, oral, Nightly senna-docusate, 1 tablet, oral, BID sodium chloride, 2 spray, each nostril, Q2H while awake sodium chloride 0.9%, 0.5-20 mL, intra-catheter, Q8H SUSAN tamsulosin, 0.4 mg, oral, Daily Continuous Infusions:Lactated Ringer's, 10 mL/hr, Last Rate: Stopped (05/11/23 150) niCARdipine, 0-2.5 mcg/kg/min, Last Rate: Stopped (05/11/23 150) sodium chloride 0.9%, 3-12 mL/hr, Last Rate: Stopped (05/11/23 150) sodium chloride 0.9%, 3-12 mL/hr, Last Rate: Stopped (05/11/23 150) Vitals: Temp: [36.7 ??C (98.1 ??F)-37.5 ??C (99.5 ??F)] 37.5 ??C (99.5 ??F) Pulse: [81-106] 81 BP: (113-166)/(64-116) 113/66 Resp: [12-25] 21 SpO2: [90 %-100 %] 95 % Arterial Line BP: (115-198)/(56-93) 150/93 FiO2 (%): [30 %] 30 % Fluid balance: I/O this shift: In: - Out: 765 [Urine:765] Intake/Output Summary (Last 24 hours) at 05/12/2023 0137 Last data filed at 05/12/2023 0100 Gross per 24 hour Intake 1195 ml Output 3130 ml Net -1935 ml Ventilator settings: FiO2 (%): 30 % (05/11 0326) Hemodynamic parameters: PAP: -- CVP: 2 mmHg (05/11 1015) PCWP: -- CO: -- CI: -- SVO2: -- Pacemaker Overdrive Pacing: -- Cardiac Rhythm: Normal sinus rhythm (05/12 100) Pacer Mode: -- Physical exam: Physical Exam: Neuro: AOx4, PERRL Cardiac: RR, S1/S2, periphery warm, pulses palpable distally Resp: CTAB GI: abdomen round, soft, normal bowel sounds : hutton w/ clear yellow urine Skin: pink, warm, dry, midline sternotomy incision open to air, C/D/I MSK: UE strength intact b/l, LLE strength improving, 3/5 strength throughout LLE, 4/5 strength in RLE. LTDA: RIJ Quad lumen, R radial a-line, PIV x3, Hutton Laboratory data: Recent Labs Lab Units 05/12/23 0012 05/11/23 0014 05/10/23 0037 WBC K/cumm 13.6* 17.6* 18.7* HEMOGLOBIN g/dL 8.6* 8.7* 9.9* HEMATOCRIT % 25.9* 26.5* 29.9* PLATELETS K/cumm 483* 411* 390 Recent Labs Lab Units 05/12/23 0012 05/11/23 0014 05/10/23 0037 SODIUM mmol/L 136 136 134* POTASSIUM PLASMA mmol/L 4.2 4.1 4.1 CHLORIDE mmol/L 102 100 100 CO2 mmol/L 24 23 23 BUN SERUM mg/dL 19 23 18 CREATININE mg/dL 0.96 1.24 0.90 CALCIUM mg/dL 8.8 8.9 9.1 Recent Labs Lab Units 05/12/23 0012 05/11/23 0014 05/10/23 0037 PROTIME (PT) sec 15.3* 15.8* 15.8* INR 1.34* 1.39* 1.39* APTT sec 28 36 32 Recent Labs Lab Units 05/11/23 0014 05/10/23 0037 05/09/23 0622 05/09/23 0036 PH ART 7.43 7.41 7.36 7.39 PCO2 ART mmHg 34* 34* -- 29* PO2 ART mmHg 110* 131* -- 108 PO2 ARTERIAL POC mmHg -- -- 103 -- BASE EXC ART mmol/L -1 -3 -- -6 Review of the laboratory data shows: total spine MRI 05/07 w/ dorsal hematoma and assoc displacement of cauda equina nerve roots, no evidence of ischemia Impression and Plan: Active problems/Diagnoses and Plans: #Acute postoperative pain #Agitation - tylenol susan, prn oxy/HM for pain - prn haldol, versed for anxiety - lido gtt 1 #Acute type B aortic dissection #C/f Spinal Cord Ischemia #Hypertension CT showed extension of the type B thoracic aortic aneurysm, terminates just above the bifurcation, with origins the left renal artery and celiac artery arising off the false lumen. 05/05 upon extubation pt LE exam w/ LLE ankle flexion only, RLE w/ antigravity knee flexion, c/f spinal cord ischemia - OR 05/02 for TEVAR - Vascular surgery following. -recs: Hgb >10, MAP >100, SBP <180 - Lumbar drain placed 05/05 w/ NSGY, clamp trial 05/09 , plan to remove tomorrow - clevidipine gtt (tachyphylaxis w/ esmolol) vs levo gtt to meet map goals - q1h NV checks - total spine MRI 05/07 w/ dorsal hematoma and assoc displacement of cauda equina nerve roots, no evidence of ischemia - Neurology c/s following 05/07, appreciate recs #Respiratory insufficiency Expected postoperatively. History of desat and wheezing, after administration of sugammadex and zofran in the OR prior to attempt to extubate. Required albuterol and epi pushes. BP stable throughout event. Lungs clear on arrival. Episode of desat resolved with recruitment breaths. - Reintubated 05/07 for anesthesia, extubated after successful RSBI - CXR w improving volume overload - Currently on optiflow, weaning to SpO2 >92% #Obstructive sleep apnea - consider NPPV nightly once extubated #Epistaxis Significant nose bleed in the OR requiring intra-op ENT c/s. DL performed, no other sources of bleeding visualized. ACT post protamine 149. - ENT following - ocean spray tid - no other s/s bleeding #Nausea -prn ondansetron, compazine #Acute blood loss anemia #Thrombocytopenia - Daily CBC #TA H. Influenza - cont APAP q6h susan - TA 05/05 growing Haemophilus Inf - UA, BCx x2 - ngtd - susana(05/04 - 05/10), linezolid (05/04-05/06) ICU Standards of Care: Diet: reg diet DVT prophylaxis: SCDs PUD prophylaxis: PPI Dispo: ICU Code status: Full code TDLA: R IJ Quad lumen, PIVx3, R radial a-line, Huttonjannet Mendoza MD Anesthesiology PGY-1 Cosigned by Dalton Locke MD at 05/12/2023 3:44 PM ELECTRO OPTICS ENGINEER TRO OPTICS ENGINEER TRO OPTICS ENGINEER Associated attestation - Dalton Locke MD - 05/12/2023 3:44 PM ELECTRO OPTICS ENGINEER Attending Documentation: I have seen and examined this critically ill patient on the day of service. I have reviewed and confirmed the history, physical exam, laboratory and radiologic data with the house staff as documentedin the ICU Resident note. I have reviewed and discussed my treatment plan with the ICU team and other medical/sap security consultant staff, making frequent assessments and decisions regarding this patient's complex medical care. Critical care was necessary to treat or prevent imminent or life-threatening deterioration of the following conditions: Active problems: Aortic dissection s/p stenting Attending Impression / Plans: His mental status is drastically improved--Looks like a new person. Sitting in the chair, laughing,conversant, talking about his new lease on life. Continuing coreg, meeting BP goal of 140-180 on current dose. Q2h neurovascular checks TTOU Silverio Locke MD Seasonal Recruiter Department of Anesthesiology * Timmy Rosales - 2023 6:24 PM CST Timmy Bobby [phone] 05/11/23 1800 Time Spent Start Time 1740 Stop Time 1750 Time Calculation (min) 10 min Patient Spiritual Assessment Spirituality Assessed Yes Rastafarian Affiliation Mu-Ism Active in Synagogue Yes Spiritual Needs Communion;Prayer Clinical Encounter Type Visited With Patient and family together Response Type Continuing visit Routine Visit Follow-up Continue Visiting Yes Reason for visit Sacramental;Support Sacramental Encounters Communion Patient wants communion Communion Given Indicator Yes Outcomes and Progress Aligning care with patient's values Achieved Preserve dignity and respect Achieved Demonstrating care and respect Achieved Interventions Interventions Active listening;Offer spiritual/alevism support;Prayer (Benediction) TRO OPTICS ENGINEER * Nigel Mcgraw MD - 2023 5:50 PM CST Neurosurgery follow-up note: This patient was seen by the Neurosurgery team for concern for cord infarct, which was managed witha lumbar drain placed by QUENTIN . This patient was staffed with Dr. Smith, who reviewed the patient's history and imaging. The LD was removed on 05/10. The pt does not require further f/u with NSGY. If there are further questions or concerns regarding this patient, please page the Neurosurgery call pager at [phone], and request the resident caring for Dr. Smith's patients. Nigel Mcgraw MD TRO OPTICS ENGINEER * Marina Finn - 2023 2:49 PM CST Occupational Therapy Occupational Therapy Initial Assessment NOTE:This is a summary note for the grande assessments completed during the evaluation session. For full details, review chart review for all flowsheets documented on by this Occupational Therapist on this date. Vital signs documented in vital signs flowsheet. Assessment Assessment Problem List: Decreased endurance, Decreased cognition, Decreased balance, Decreased functional mobility, Decreased ADL independence, Decreased IADL independence Barriers to Discharge: Current Mobility Status, Cognition Plan Plan Plan: Plan of care initiated, If this is the last note, consider this the discharge summary OT Recommendation and Plan Recommendation/Plan OT Recommendation: Inpatient Rehab Facility Patient at high risk for: Falls, Readmission, Injury due to decreased ability to care for self, Injury due to reduced functional status, Injury due to impaired cognition, Injury due to balance deficits, Injury at home as patient has not returned to prior level of function Recommend Inpatient Rehab/Acute Rehab due to: Highly motivated to participate in therapy, Not at baseline due to impaired ability to complete ADLs, Impaired ability to complete functional mobility, Likely to return to the community at discharge with support system in place, Requires greater than 25% physical assistance with most mobility tasks, Requires multiple therapy disciplines to address functional deficits, Requires greater than 25% physical assistance with most ADL tasks OT Frequency during current admission: 3-5x/wk Treatment/Interventions during current admission: ADL/IADL retraining, Balance Training, Bed mobility, Endurance training, Functional activity, Functional mobility training, Functional transfer training, Therapeutic activity, Therapeutic exercise, Transfer training OT - Next Appointment: 05/13/23 OT - OK to Discharge: No OT Evaluation Complete: Yes General Information General Chart Reviewed: Yes Session Type: Evaluation OT Received On: 05/11/23 Safe Environment: Arm band checked, Patient found sitting in chair Subjective: Agreeable to Therapy Family/Caregiver Present: No Occupational Therapy-Patient Goal: get my sock on Precautions Precautions Precautions: Fall risk Home Living Home Living Type of Home: House Home Layout: Two level # of Steps-Railed: 20 Home Access: Stairs to enter with rails Entrance Stairs-Rails: Left Entrance Stairs-Number of Steps: 3 Bathroom Shower/Tub: Walk-in shower with threshold Bathroom Toilet: Standard Bathroom Equipment: Other (Comment) (none) Home Mobility Equipment-Available: None Home Mobility Equipment-Currently Using: None Prior Function Prior Function Level of [place]: Independent with ADLs, Independent functional transfers, Independent with ambulation, Independent with homemaking with ambulation Lives With: Spouse, Family Receives Help From: Spouse/Significant other, Family (FT assist) Driving: Yes Mode of Transportation: Car ADL Assistance: Independent Instrumental ADL (IADL) Assistance: Independent 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 Fall within the last 6 months: Yes Fall within the last 6 months comment: 2 falls out of bed while in hospital Activities of Daily Living Grooming Grooming: Where assessed: Chair Grooming: Level of assistance: Moderate Assist Grooming: Assistance with: Safety, Other (Comment) (balance) LE Dressing LE Dressing: Where assessed: Sitting, Chair LE Dressing: Level of assistance: Maximum Assist LE Dressing: Assistance with: Don/doff R sock, Don/doff L sock, Thread RLE into pants, Thread LLE into pants, Pull up over hips, Safety, Other (Comment) (balance) Toilet Transfers Toilet Transfers: Not tested Toilet Transfers Comments: Nt 2/2 pt declined d/t fatigue Pain Pain Assessment Pain Assessment: 0-10 Pain Score: 3 Patient's Stated Pain Goal: No pain Cognition Cognition Cognition Comments: MCOA blind Overall Cognitive Status: Impaired Arousal/Alertness: Alert, Appropriate responses to stimuli Attention Span: Appears intact Memory: Decreased short term memory Current communication: Appears Intact Orientation : Oriented X4 (person, place, time, situation) Following Commands: Follows all commands and directions without difficulty Safety Judgment: Good awareness of safety precautions Awareness of Errors: Good awareness of errors made Insight: Fully aware of deficits Problem Solving: Able to problem solve independently Compliance/Behavior: Easy to engage Perseveration: Not present [place] Cognitive Assessment-Blind (MOCA-Blind) MOCA-Blind Version: Version 3 Memory-Blind: Memory not scored Attention-Blind: 3 Language-Blind: 2 Abstraction-Blind: 2 Delayed Recall-Blind: 2 Orientation-Blind: 6 Education Level-Blind: Education less than or equal to 12 yrs MOCA Total Score-Blind: 16 Score Evaluation-Blind: 0-17 Impaired Recommendations for further assessment/interventions: Medication Management MOCA-Blind Comments: Pt educated on having significant other to double check medications after discharge and using a pill organizer 6 Clicks Daily Activity - 6 Clicks Putting on and taking off regular lower body clothing: A lot Bathing: A lot Toileting: A lot Putting on and taking off upper body clothing: A Lot Personal Grooming: A lot Eating Meals: A little Total Score (range 6-24): 13 Score Interpretation: 13 Balance Dynamic Sitting Balance Dynamic Sitting-Balance Support: Feet supported, No upper extremity supported Dynamic Sitting-Balance: Lateral lean, Forward lean, Reaching for objects, Reaching across midline Dynamic Sitting-Sitting Surface: Chair Dynamic Sitting-Level of Assistance: Contact guard Dynamic Sitting-Comments: ensure safety and balance Dynamic Standing Balance Dynamic Standing-Balance Support: Bilateral upper extremity supported Dynamic Standing-Standing Surface: Floor Dynamic Standing-Level of Assistance: Minimum assistance Dynamic Standing-Comments: Min A x2 for balance and safety Transfers Transfers Transfer: Yes Transfer 1 Transfer From 1: Sit Transfer Type 1: To and from Transfer to 1: Stand Technique 1: Sit to stand, Stand to sit Transfer Device 1: No device Transfer Level of Assistance 1: Minimum Assist Trials/Comments 1: Min A x2 for force production, balance, safety Transfers 2 Trials/Comments 2: Functional mobility observed with matteo mcconnell and Min A x2 for safety and balance Bed Mobility Bed Mobility Bed Mobility: No RUE Assessment RUE Assessment RUE Assessment: Within Functional Limits LUE Assessment LUE Assessment LUE Assessment: Within Functional Limits Safe Environment End of Session Safe Environment End of Therapy Session: Patient left in recliner, RN notified, Call light within reach, Overbed table within reach (justina belt) Other Comments OT Goals Multi-Disciplinary Problems (from Occupational Therapy) Active Problems Problem: Dressings Lower Extremities Start Date: 05/11/23 Goal Start Date Expected End Date End Date STG - Patient to complete lower body dressing 05/11/23 05/27/23 -- Goal Details: With supervision Problem: Grooming Start Date: 05/11/23 Goal Start Date Expected End Date End Date STG - Patient will complete grooming 05/11/23 05/27/23 -- Goal Details: Standing at sink with supervision Problem: Toileting Start Date: 05/11/23 Goal Start Date Expected End Date End Date STG - Patient will complete toileting tasks with 05/11/23 05/27/23 -- Goal Details: supervision Problem: Transfers Start Date: 05/11/23 Goal Start Date Expected End Date End Date STG - Patient will perform toilet transfer 05/11/23 05/27/23 -- Goal Details: To toilet in bathroom with supervision Problem: OT Misc Start Date: 05/11/23 Goal Start Date Expected End Date End Date OT LTG - [facility] [place] 1 05/11/23 06/01/23 -- Goal Details: Pt will be independent in ADLS Cosigned by Dc Lopez OT at 2023 2:54 PM ELECTRO OPTICS ENGINEER TRO OPTICS ENGINEER TRO OPTICS ENGINEER * Darren Busby, RD - 2023 11:50 AM CST NUTRITION ASSESSMENT Nutrition Status: Patient does not meet ASPEN criteria for malnutrition at this time. REASON FOR ASSESSMENT: Follow Up Encounter Date: 05/11/23 11:50 AM Admission Date: 05/01/2023 LOS: 10 days HPI: Patient is a 33 y.o. male with Type B aortic Dissection, now s/p TEVAR, L Subclavian Stent Placement (05/02). 05/04: Remains intubated d/t CXR c/f volume overload bibasilar atelectasis R>L , sedated on Dex for elevated TG, and diuresing with Bumex 2 mg Q6 hrs. Plan to start TF. 05/05: Extubated to aerosol face mask, c/f spinal cord ischemia, lumbar drain placed 05/06: Remains NPO for potential Spine MRI 05/10: Lumbar drain removed Objective No past medical history on file. No past surgical history on file. Social History Tobacco Use Smoking status: Never Smokeless tobacco: Never Substance and Sexual Activity Drug use: Not on file Sexual activity: Not on file Alcohol Use: Not on file MEDICATION/LAB REVIEW: Scheduled Meds: acetaminophen, 1,000 mg, oral, Q6H SUSAN aspirin, 81 mg, oral, Daily carvediloL, 12.5 mg, oral, BID gabapentin, 300 mg, oral, TID heparin, 5,000 Units, subcutaneous, Q8H SUSAN lidocaine, 1 patch, transdermal, Daily polyethylene glycol, 17 g, oral, Daily [START ON 05/12/2023] QUEtiapine, 50 mg, oral, Daily QUEtiapine, 75 mg, oral, Nightly senna-docusate, 1 tablet, oral, BID sodium chloride, 2 spray, each nostril, Q2H while awake sodium chloride 0.9%, 0.5-20 mL, intra-catheter, Q8H SUSAN tamsulosin, 0.4 mg, oral, Daily Continuous Infusions: Lactated Ringer's, 10 mL/hr, Last Rate: 10 mL/hr (05/11/23 1000) niCARdipine, 0-2.5 mcg/kg/min, Last Rate: 1 mcg/kg/min (05/11/23 1000) sodium chloride 0.9%, 3-12 mL/hr, Last Rate: 6 mL/hr (05/11/23 1000) sodium chloride 0.9%, 3-12 mL/hr, Last Rate: 6 mL/hr (05/10/23 1332) PRN Meds: albuterol HFA camphor-menthoL sodium chloride 0.9% sodium chloride 0.9% HYDROmorphone labetalol ondansetron oxyCODONE potassium chloride prochlorperazine sodium chloride 0.9% Recent Labs Lab Units 05/11/23 0014 05/10/23 0037 05/09/23 1254 05/09/23 0035 SODIUM mmol/L 136 134* -- 134* POTASSIUM PLASMA mmol/L 4.1 4.1 -- See Comment CHLORIDE mmol/L 100 100 -- 104 CO2 mmol/L 23 -- 20* BUN SERUM mg/dL 23 18 -- 17 CREATININE mg/dL 1.24 0.90 -- 0.86 [id number] mL/min/1.73 m2 80 >90 -- >90 CALCIUM mg/dL 8.9 9.1 -- 8.5 ALBUMIN g/dL -- 3.7 < > -- PHOSPHORUS PLASMA mg/dL 2.0* 3.2 -- 2.8 MAGNESIUM mg/dL 2.4 2.7* -- 2.7* < > = values in this interval not displayed. Recent Labs Lab Units 05/11/23 0014 05/10/23 0037 05/10/23 0016 05/09/23 0622 05/09/23 0035 12/10192405/08/23 0108 GLUCOSE mg/dL 121 128 -- -- 142 -- 114 POC GLUCOSE MONITOR mg/dL -- -- 129 136 -- 143 -- ALT Date Value Ref Range Status 05/10/2023 28 7 - 55 Units/L Final AST Date Value Ref Range Status 05/10/2023 30 10 - 50 Units/L Final Alk phos Date Value Ref Range Status 05/10/2023 88 40 - 130 Units/L Final Lipase Date Value Ref Range Status 05/09/2023 28 10 - 99 Units/L Final Lab Results Component Value Date TRIG 533 (H) 05/09/2023 NURSING ASSESSMENT: Last BM Date: 05/11/23 Bowel Sounds (All Quadrants): Active Toni Scale Score: 15 Skin Integrity: Surgical incision [REMOVED] Pressure Ulcer/Pressure Injury 05/02/23 Mid-line Gluteal fold (horizontal junction between the thigh and buttock) Non-blanchanble erythema- Pressure Ulcer Status: Evolving Edema: Mild pitting, silght indention Minute Ventilation (L/min): 8.2 L/min Vital Signs BP: 162/78 Temp: 37.1 ??C (98.8 ??F) Pulse: 102 Resp: 12 SpO2: 98 % Intake/Output Summary (Last 24 hours) at 2023 1150 Last data filed at 2023 1000 Gross per 24 hour Intake 1624.29 ml Output 1590 ml Net 34.29 ml Adult Malnutrition Scoring Tool (MST) What diet do you follow at home?: regular Have You Recently Lost Weight Without Trying?: No Have you been eating poorly because of a decreased appetite?: No Malnutrition Screening Tool (MST) Score: 0 Anthropometrics Weight: 103.5 kg (228 lb 2.8 oz) Admission Weight : 107.5 kg Weight Change: -8.09 kg (-17.85 lbs) IBW/kg (Calculated) : 72.6 kg Height: 175.3 cm (5' 9 ) Weight in (lb) to have BMI = 25: 168.9 BMI (Calculated): 33.7 Wt Readings from Last 10 Encounters: 05/11/23 103.5 kg (228 lb 2.8 oz) 05/06/23 111.6 kg (246 lb 0.5 oz) ESTIMATED NEEDS: Kcal/kg: (2664-5021 kcal (14-18 kcal/kg BW)). Type of Weight Used for Estimated Kcals: Current Total Protein Estimated Needs (gm): 101.64 Protein Needs Based on g/k.4 Type of Weight Used forEstimated Protein : [place] Total Fluid Estimated Needs: 1815 Fluid Needs Based on : 25 ml/kg Type of Weight Used for EstimatedFluid Needs: [place] Dietary Orders (From admission, onward) Start Ordered 05/07/23 1502 Adult Diet Regular Diet effective now Question: ([facility]) Diet type Answer: Regular 05/07/23 1501 Allergies: Reviewed, NKFA IMPRESSION: RD follow-up on plan of care. Upon interview, pt is feeling much better and eating 100% of all meals and family is also bringing in food for him. Pt is having large formed BM and diuresing the fluid weight he had post-op back near his usual BW/dry weight. Note order for lasix 40 mg/day, weight downfrom 246 lbs to 228 lbs, usual BW 225-230 lbs. I/O; -609, -2195 mL UOP BS are active, pt has 1 BM today. Note orders for jie-colace BID. Noted labs 05/11; Na 136, K 4.1, BUN 23, Cr 1.24, Ca 8.9, Mg 2.4, and PO4 2.0. Pt was repleted with 40 mEq KCl and xs1 PHOS NaK packet in the last 24 hrs. Pressure area to gluteal fold has healed. Wt Readings from Last 6 Encounters: 05/11/23 103.5 kg (228 lb 2.8 oz) 05/06/23 111.6 kg (246 lb 0.5 oz) ASPEN MALNUTRITION ASSESSMENT: N/A NUTRITION FOCUSED PHYSICAL EXAM: N/A NUTRITION DIAGNOSIS: Nutrition Diagnosis 1: Inadequate oral intake Related to: NPO status Evidenced by: Patient interview INTERVENTION(S): Summary: Assess for nutrition changes, [place] diet preferences within the limits of nutrition care order Continue Regular diet and encourage his PO adequacy. Please obtain standing weight 2x/week as soon as medically feasible given fluid- related weight changes. RD will continue to monitor plan of care, PO intake and adequacy, nutrition- related labs, BM, and weight changes for further nutrition intervention as indicated. GOAL(S): Advance to oral intake as medically able, Adequate nutrition to meet estimated needs by next assessment MONITORING/EVALUATION: Appetite, Diet advancement, Electrolyte changes, Hydration status, I/O, Labs, PO intake, Stool patterns, Weight changes Darren Busby MS, RD, [facility], N [phone] [employer]-Weekend: [phone] TRO OPTICS ENGINEER * Flex Parsons MD - 2023 10:01 AM CST Vascular Surgery Daily Progress Patient Name/MRN: Eriberto Chau [id number] Treatment Team: Vascular Surgery- Pager: [phone] Attending: Faustino Herrera MD Today's Date: 2023 Room/Bed: [id number] Admit Date: 05/01/2023 Code Status: Full Code Subjective Chief complaint: Type B aortic dissection Events During This Hospitalization: 05/02: TEVAR, L subclavian stent placement Events Over Last 24 Hours: - continues to have stable neuro exam today, symmetric, lumbar drain removed yesterday - on RA this AM and satting well - continued labile pressures with systolics into 200s overnight - WBC 17.8 from 18.7 Objective Vitals: 24hr Min/Max: Temp Min: 36.7 ??C (98.1 ??F) Max: 37.8 ??C (100.1 ??F) Pulse Min: 92 Max: 130 Resp Min: 12 Max: 24 SpO2 Min: 90 % Max: 100 % Most Recent : Vitals: 05/11/23 0900 BP: Pulse: 100 Resp: 18 Temp: SpO2: 98% I/O last 2 completed shifts: In: 1585.8 [P.O.:480; I.V.:995.8; IV Piggyback:110] Out: 2195 [Urine:2195] I/O this shift: In: 234 [P.O.:120; I.V.:114] Out: - Physical Exam: General: awake and alert Neuro: BUE: 4-5/5 strength throughout, sensation intact; RLE: 4/5 ankle flexion, 4/5 knee flexion, 4/5 hip flexion; LLE: 4/5 throughout; sensation intact bilatereally Cardiac: regular rate and rhythm Pulses: 2+ and symmetric Palpable DP bilaterally, palpable L radial Lungs: NLB on CPAP at time of evaluation Abdomen: normal findings: soft, non-tender Lab/Radiology/Diagnostic Review: Laboratory review: Lab results in the last 12 hours: Recent Results (from the past 12 hour(s)) CBC without differential Collection Time: 05/11/23 12:14 AM Result Value Ref Range WBC 17.6 (H) 3.8 - 9.9 K/cumm Hgb 8.7 (L) 13.0 - 17.5 g/dL Hct 26.5 (L) 38.9 - 50.3 % Plt 411 (H) 150 - 400 K/cumm MPV 9.6 9.1 - 12.3 fL RBC 2.93 (L) 4.30 - 5.80 M/cumm MCV 90.4 81.3 - 96.4 fL MCH 29.7 27.1 - 33.3 pg MCHC 32.8 32.3 - 35.7 g/dL RDW CV 13.5 11.1 - 14.9 % RDW SD 45.0 35.7 - 48.1 fL NRBC abs 0.02 (H) 0.00 - 0.01 K/cumm Basic metabolic panel Collection Time: 05/11/23 12:14 AM Result Value Ref Range Sodium 136 135 - 145 mmol/L Potassium, pl 4.1 3.3 - 4.9 mmol/L Chloride 100 97 - 110 mmol/L CO2 23 22 - 32 mmol/L Anion gap 13 2 - 15 mmol/L BUN 23 6 - 25 mg/dL Creatinine 1.24 0.80 - 1.30 mg/dL Glucose 121 70 - 199 mg/dL Calcium 8.9 8.5 - 10.3 mg/dL Magnesium Collection Time: 05/11/23 12:14 AM Result Value Ref Range Magnesium 2.4 1.4 - 2.5 mg/dL Phosphorus Collection Time: 05/11/23 12:14 AM Result Value Ref Range Phosphorus, pl 2.0 (L) 2.3 - 4.5 mg/dL Protime-INR Collection Time: 05/11/23 12:14 AM Result Value Ref Range PT 15.8 (H) 10.3 - 13.7 sec INR 1.39 (H) 0.90 - 1.20 aPTT Collection Time: 05/11/23 12:14 AM Result Value Ref Range aPTT 36 28 - 38 sec Potassium, whole blood Collection Time: 05/11/23 12:14 AM Result Value Ref Range Potassium, bld 4.0 3.3 - 4.9 mmol/L Blood gas, arterial Collection Time: 05/11/23 12:14 AM Result Value Ref Range pH, Art 7.43 7.35 - 7.45 PCO2, Arterial 34 (L) 35 - 45 mmHg PO2, Arterial 110 (H) 83 - 108 mmHg HCO3 Art (Calculated) 23 20 - 30 mmol/L BE, art -1 mmol/L O2 Sat Art (Measured) 98 (H) 90 - 95 % eGFR Collection Time: 05/11/23 12:14 AM Result Value Ref Range eGFR 80 >=60 mL/min/1.73 m2 Assessment/Plan Principal Problem: Dissection of aorta, unspecified portion of aorta (HCC) Active Problems: Dissection of thoracoabdominal aorta (CMS/HCC) (HCC) Problem List Cardiac and Vasculature * (Principal) Dissection of aorta, unspecified portion of aorta (HCC) Current Assessment & Plan 32y/o male with uncontrolled HTN who presented to an OSH ER with acute onset shortness of breath, chest pain and back pain. 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 He was transferred to [facility] for further evaluation and treatment. Here, he was seen by vascular surgery and admitted to the CTICU for impulse control. He had recurrent worsening pain and a repeat CTA this morning. This showed ???interval cranial propagation of a type B thoracic aortic dissection which now extends from approximately zone 3 to theleft common iliac artery; no change in aortic caliber; this dissection may originate in the midthoracic aorta, or fenestration is present at the level of T4; increasing fat stranding about the aorticarch and great vessels, likely reactive in the setting of dissection propagation, no extraluminal contrast present to suggest aortic rupture?? , for which CTS was consulted. CTA reviewed with Daniel Balderas, and Mesha. All feel these findings not to be telephone service representative of a type a dissection, therefore no urgent cardiac surgery is recommended. However, he is continuing to have significant pain despite BP control and pain medications, in addition to the propagationof the dissection. Recommend reaching back out to vascular surgery to consider a vascular intervention. I have called the on-call vascular fellow and left a voicemail. Echo ordered stat. This showed LVEF of 41%, dilated atria, dilated IVC, normal aortic root size, nopericardial effusion. As above, recommend following up with vascular surgery. Please get stat chest abdomen pelvis CTA if any clinical or neurological changes. Continue impulse control. Consider cardiology consult in the setting of difficult to control, longstanding hypertension and findings of HFrEF with LVEF of 41%. Relevant Orders Critical Care (Completed) Central Line (Completed) Intubation (Completed) Insert arterial line (Completed) Dissection of thoracoabdominal aorta (CMS/HCC) (HCC) Relevant Orders CV Hybrid Room (Default Orderable) (Completed) Insert arterial line (Completed) Critical Care (Completed) Critical Care (Completed) 32 yo M who presented with Type B aortic dissection with worsening pain, now s/p TEVAR and L subclavian artery stent. Now with concern for lumbar spinal ischemia. He has had improving lower extremitystrength after MAP augmentation and lumbar drain placement. - Continue q1h lower extremity neurovascular checks - Goal MAP > 100, goal SBP < 180 - Hgb > 10, Plt > 100 --> please transfuse 1 RBC today for Hgb of 8.7 - f/u cardiology (Dr Abarca) consult recs - f/u CTA dissection protocol of chest/abdomen/pelvis today Flex Parsons MD, MSc [phone] For patients or family members viewing this note through [employer] programs: This note was written as a [...] care. Cosigned by Faustino Herrera MD at 2023 12:24 PM ELECTRO OPTICS ENGINEER TRO OPTICS ENGINEER TRO OPTICS ENGINEER * Pb Elizabeth, PT - 2023 9:59 AM CST Physical Therapy Physical Therapy Progress [...] treatment team and contact the PT or SPORT INTERN currently assigned to this patient. If a physical therapy clinician is not assigned to this patient, please call [phone]. 05/11/23 0959 PT Last Visit Session Type Treatment PT Received On 05/11/23 Safe Environment Arm band checked;Patient found sitting in chair;Gait belt not utilized, see comment Subjective Agreeable to Therapy Family/Caregiver Present No Precautions Precautions Fall risk Activity Tolerance Activity Tolerance Comments HARDEEP:hard Pain Assessment Pain Assessment No/denies pain Cognition Arousal/Alertness Alert;Appropriate responses to stimuli Orientation Oriented X4 (person, place, time, situation) Following Commands Follows multistep commands with repetition Balance Balance Yes Static Sitting Balance Static Sitting-Balance Support Feet supported;Bilateral upper extremity supported Static Sitting-Sitting Surface Bed Static Sitting-Level of Assistance Close supervision Static Sitting-Comment/# of Minutes balance, safety Static Standing Balance Static Standing-Balance Support Bilateral upper extremity supported (PICKER PACKER) Static Standing-Standing Surface Floor Static Standing-Level of Assistance Minimum assistance;Moderate assistance (varying between min-mod A with R knee buckling and R lateral LOB) Static Standing-Comment/# of Minutes assist for safety/balance, R knee buckling and R lateral LOB. cueing for weight shifting. Dynamic Standing Balance Dynamic Standing-Balance Support Bilateral upper extremity supported (PICKER PACKER) Dynamic Standing-Standing Surface Floor Dynamic Standing-Level of Assistance Moderate assistance;Minimum assistance (varying between min-mod A x 2 due to fatigue) Dynamic Standing-Comments marching/foot taps. assist to prevent Lateral LOB Bed Mobility Bed Mobility Yes Bed Mobility 1 Bed Mobility From 1 Edge of bed Bed Mobility Type 1 To Bed Mobility to 1 Supine Level of Assistance 1 Minimum Assist (min A x 2) Bed Mobility Comments 1 assist for LE management, trunk control. Transfers Transfer Yes Transfer 1 Transfer From 1 Sit Transfer Type 1 To and from Transfer to 1 Stand Technique 1 Sit to stand;Stand to sit Transfer Device 1 Hand held assist Transfer Level of Assistance 1 Minimum Assist;Moderate Assist (mod A-1 trial, min A x 2-2nd trial) Trials/Comments 1 assist for balance, force production. B knees blocked for safety, and 2/2 mm weakness. R knee buckling with lateral LOB noted. Transfers 2 Transfer From 2 Chair with arms Transfer Type 2 To Transfer to 2 Bed Technique 2 Stand and step Transfer Device 2 Hand held assist Transfer Level of Assistance 2 Minimum Assist (min A x 2) Trials/Comments 2 assist for balance, weight shifting, cueing for sequencing, foot clearance Ambulation Ambulation No Stairs Stairs No Basic Mobility - 6 Click How much difficulty does the patient have: Turning over in bed 3 How much difficulty does the patient currently have: Sitting down and standing up from a chair witharms? 2 How much difficulty does the patient have: Moving from lying on back to sitting on the side of the bed? 3 How much difficulty does the patient have: Moving to and from a bed to a chair including wheelchair? 2 How much help does the patient currently need: Walk in hospital room? 2 How much help from another person does the patient currently need: Climbing 3-5 steps with a railing? 1 Total 6 Click Score (range 6-24) 13 Score Interpretation 33.99 Safe Environment End of Therapy Session Safe Environment End of Therapy Session RN notified;Call light within reach;Overbed table within reach;Patient left supine in bed Assessment Prognosis Good Problem List Gait deviations;Decreased range of motion;Decreased strength;Decreased endurance;Decreased mobility;Impaired balance;Decreased coordination Barriers to Discharge Current Mobility Status Plan Plan Continue with current plan;If this is the last note, consider this the discharge summary Recommendation/Plan PT Recommendation/Plan Inpatient Rehab Facility Patient at high risk for Falls;Readmission;Injury due to reduced functional status;Injury due to decreased ability to care for self;Injury due to balance deficits;Injury at home as patient has not returned to prior level of function;Developing secondary complications: poor health management Recommend Inpatient Rehab/Acute Rehab due to Impaired ability to complete functional mobility;Not at baseline due to impaired ability to complete ADLs;Likely to return to the community at discharge with support system in place;Ability to actively participate in intensive therapy 3 hours/day, 5 days/ week or 900 minutes per week;Highly motivated to participate in therapy;Requires greater than 25% physical assistance with most mobility tasks;Requires multiple therapy disciplines to address functional deficits PT Frequency during current admission 5-7x/wk Treatment/Interventions during current admission Balance Training;Bed mobility;Functional transfer training;Strengthening;Therapeutic activity;Therapeutic exercise Progress during current admission Progressing toward goals PT - Next Appointment 05/12/23 Multi-Disciplinary Problems (from Physical Therapy) Active Problems Problem: Mobility Start Date: 05/10/23 Goal Start Date Expected End Date End Date LTG - Patient will ambulate community distance 05/10/23 06/10/23 -- Goal Details: independent Goal Start Date Expected End Date End Date STG - Patient will ambulate 05/10/23 05/20/23 -- Goal Details: 300' with LRD and SBA Goal Start Date Expected End Date End Date STG - Patient will ascend and descend a flight of stairs 05/10/23 05/20/23 -- Goal Details: with rail and Min A Problem: Transfers Start Date: 05/10/23 Goal Start Date Expected End Date End Date STG - Transfer from bed to chair 05/10/23 05/20/23 -- Goal Details: SBA Goal Start Date Expected End Date End Date STG - Patient to transfer to and from sit to supine 05/10/23 05/20/23 -- Goal Details: SBA Goal Start Date Expected End Date End Date STG - Patient will transfer sit to and from stand 05/10/23 05/20/23 -- Goal Details: SBA Problem: PT Misc Start Date: 05/10/23 Goal Start Date Expected End Date End Date PT STG - Patient and caregivers will participate in and demonstrate understanding of therapeutic exercise and safe mobility strategies to improve independence with functional mobility. 05/10/23 05/20/23 -- TRO OPTICS ENGINEER * Jonathan Mccoy - 2023 6:02 AM CST Spiritual Care Jonathan Mccoy 05/11/23 [id number] 05/11/23 0600 Time Spent Start Time 0540 Stop Time 0553 Time Calculation (min) 13 min Patient Spiritual Assessment Spirituality Assessed Yes Rastafarian Affiliation Mu-Ism Active in Synagogue Yes Spiritual Needs Prayer Clinical Encounter Type Visited With Patient Response Type Continuing visit Routine Visit Follow-up Reason for visit Support Outcomes and Progress Aligning care with patient's values Achieved Preserve dignity and respect Achieved Demonstrating care and respect Achieved Hansa affirmation Achieved Establish rapport and connectedness Achieved Sense of peace Achieved Interventions Interventions Active listening;Explore hansa and values;Offer emotional support;Offer spiritual/alevism support;Prayer 05/11/23 0600 Time Spent Start Time 0540 Stop Time 0553 Time Calculation (min) 13 min Patient Spiritual Assessment Spirituality Assessed Yes Rastafarian Affiliation Mu-Ism Active in Synagogue Yes Spiritual Needs Prayer Clinical Encounter Type Visited With Patient Response Type Continuing visit Routine Visit Follow-up Reason for visit Support Outcomes and Progress Aligning care with patient's values Achieved Preserve dignity and respect Achieved Demonstrating care and respect Achieved Hansa affirmation Achieved Establish rapport and connectedness Achieved Sense of peace Achieved Interventions Interventions Active listening;Explore hansa and values;Offer emotional support;Offer spiritual/alevism support;Prayer TRO OPTICS ENGINEER * ToMeron MD - 2023 1:[address] ICU Daily Progress Shifts: MD Shift Options: CTI Blue 3 PM Subjective Patient is a 33 y.o. male admitted to the hospital on 05/01/2023 4:58 AM with/following: Type B Aortic dissection ICU events 05/02: TEVAR 05/03: R IJ CVC 05/05: c/f spinal cord ischemia, lumbar drain placed Overnight events: 05/10 AM - Continue PRN labetalol - DC lumbar drain - FBG -1-2L, lasix 40 BID - Dulcolax AL - Repeat cultures - sBP <140-180 05/10 pm - meropenem course complete - folet removed around 1300, 2029 bladder scan >500 x1 straight cath - SBPs 120s but clinically stable, neurovascularly intact, will continue to monitor - P repleted Objective Medications: Scheduled Meds:acetaminophen, 1,000 mg, oral, Q6H SUSAN aspirin, 81 mg, oral, Daily bisacodyL, 10 mg, rectal, Once gabapentin, 300 mg, oral, TID heparin, 5,000 Units, subcutaneous, Q8H SUSAN lidocaine, 1 patch, transdermal, Daily methocarbamoL, 1,000 mg, oral, TID pantoprazole DR, 40 mg, oral, Daily polyethylene glycol, 17 g, oral, Daily QUEtiapine, 100 mg, oral, Daily QUEtiapine, 150 mg, oral, Nightly sodium chloride, 2 spray, each nostril, Q2H while awake sodium chloride 0.9%, 0.5-20 mL, intra-catheter, Q8H SUSAN Continuous Infusions:Lactated Ringer's, 10 mL/hr, Last Rate: 10 mL/hr (05/11/23199) lidocaine, 1 mg/kg/hr ([place]), Last Rate: 1 mg/kg/hr (05/11/23199) niCARdipine, 0-2.5 mcg/kg/min, Last Rate: Stopped (2350) sodium chloride 0.9%, 3-12 mL/hr, Last Rate: 6 mL/hr (05/11/23199) sodium chloride 0.9%, 3-12 mL/hr, Last Rate: 6 mL/hr (05/10/231331) Vitals: Temp: [37 ??C (98.6 ??F)-38.4 ??C (101.1 ??F)] 37 ??C (98.6 ??F) Pulse: [86-130] 100 Resp: [11-24] 16 SpO2: [93 %-100 %] 100 % Arterial Line BP: (124-212)/(43-76) 128/57 FiO2 (%): [30 %] 30 % Fluid balance: I/O this shift: In: 438.8 [I.V.:328.8; IV Piggyback:110] Out: 525 [Urine:525] Intake/Output Summary (Last 24 hours) at 05/11/2023236 Last data filed at 2023 0200 Gross per 24 hour Intake 1703.41 ml Output 1795 ml Net -91.59 ml Ventilator settings: FiO2 (%): 30 % (05/11 200) Hemodynamic parameters: PAP: -- CVP: 8 mmHg (05/11 200) PCWP: -- CO: -- CI: -- SVO2: -- Pacemaker Overdrive Pacing: -- Cardiac Rhythm: Sinus tachycardia (05/11 200) Pacer Mode: -- Physical exam: Physical Exam: Neuro: AOx4, PERRL Cardiac: RR, S1/S2, periphery warm, pulses palpable distally Resp: CTAB GI: abdomen round, soft, normal bowel sounds : hutton w/ clear yellow urine Skin: pink, warm, dry, midline sternotomy incision open to air, C/D/I MSK: UE strength intact b/l, LLE strength improving, 3/5 strength throughout LLE, 4/5 strength in RLE. LTDA: RIJ Quad lumen, R radial a-line, PIV x3, Hutton Laboratory data: Recent Labs Lab Units 05/11/231305/10/233605/09/2362105/09/2334 WBC K/cumm 17.6* 18.7* -- 14.9* HEMOGLOBIN, POC g/dL -- -- 10.2* -- HEMOGLOBIN g/dL 8.7* 9.9* -- 10.1* HEMATOCRIT % 26.5* 29.9* -- 30.1* HEMATOCRIT POC % -- -- 31.0* -- PLATELETS K/cumm 411* 390 -- 274 Recent Labs Lab Units 05/11/231305/10/233605/09/2334 SODIUM mmol/L 136 134* 134* POTASSIUM PLASMA mmol/L 4.1 4.1 See Comment CHLORIDE mmol/L 100 100 104 CO2 mmol/L 23 23 20* BUN SERUM mg/dL 23 18 17 CREATININE mg/dL 1.24 0.90 0.86 CALCIUM mg/dL 8.9 9.1 8.5 Recent Labs Lab Units 05/11/23 00105/10/237 05/09/2334 PROTIME (PT) sec 15.8* 15.8* 14.3* INR 1.39* 1.39* 1.25* APTT sec 36 32 33 Recent Labs Lab Units 05/11/231305/10/237 05/09/2362105/09/2335 PH ART 7.43 7.41 7.36 7.39 PCO2 ART mmHg 34* 34* -- 29* PO2 ART mmHg 110* 131* -- 108 PO2 ARTERIAL POC mmHg -- -- 103 -- BASE EXC ART mmol/L -1 -3 -- -6 Review of the laboratory data shows: total spine MRI 05/07 w/ dorsal hematoma and assoc displacement of cauda equina nerve roots, no evidence of ischemia Impression and Plan: Active problems/Diagnoses and Plans: #Acute postoperative pain #Agitation - tylenol susan, prn oxy/HM for pain - prn haldol, versed for anxiety - lido gtt 1 #Acute type B aortic dissection #C/f Spinal Cord Ischemia #Hypertension CT showed extension of the type B thoracic aortic aneurysm, terminates just above the bifurcation, with origins the left renal artery and celiac artery arising off the false lumen. 05/05 upon extubation pt LE exam w/ LLE ankle flexion only, RLE w/ antigravity knee flexion, c/f spinal cord ischemia - OR 05/02 for TEVAR - Vascular surgery following. -recs: Hgb >10, MAP >100, SBP <180 - Lumbar drain placed 05/05 w/ NSGY, clamp trial 05/09 , plan to remove tomorrow - clevidipine gtt (tachyphylaxis w/ esmolol) vs levo gtt to meet map goals - q1h NV checks - total spine MRI 05/07 w/ dorsal hematoma and assoc displacement of cauda equina nerve roots, no evidence of ischemia - Neurology c/s following 05/07, appreciate recs #Respiratory insufficiency Expected postoperatively. History of desat and wheezing, after administration of sugammadex and zofran in the OR prior to attempt to extubate. Required albuterol and epi pushes. BP stable throughout event. Lungs clear on arrival. Episode of desat resolved with recruitment breaths. - Reintubated 05/07 for anesthesia, extubated after successful RSBI - CXR w improving volume overload - Currently on optiflow, weaning to SpO2 >92% #Obstructive sleep apnea - consider NPPV nightly once extubated #Epistaxis Significant nose bleed in the OR requiring intra-op ENT c/s. DL performed, no other sources of bleeding visualized. ACT post protamine 149. - ENT following - ocean spray tid - no other s/s bleeding #Nausea -prn ondansetron, compazine #Acute blood loss anemia #Thrombocytopenia - Daily CBC #Fever - cont APAP q6h susan - TA 05/05 growing Haemophilus Inf - UA, BCx x2 - ngtd - susana(05/04 - 05/10), linezolid (05/04-05/06) - WBC 14.9, continue to monitor ICU Standards of Care: Diet: reg diet DVT prophylaxis: SCDs PUD prophylaxis: PPI Dispo: ICU Code status: Full code TDLA: R IJ Quad lumen, PIVx3, R radial a-line, Hutton Meron Mendoza MD Anesthesiology PGY-1 Cosigned by Dalton Locke MD at 05/12/2023 3:40 PM ELECTRO OPTICS ENGINEER TRO OPTICS ENGINEER TRO OPTICS ENGINEER Associated attestation - Dalton Locke MD - 05/12/2023 3:40 PM ELECTRO OPTICS ENGINEER Attending Documentation: I have seen and examined this critically ill patient on the day of service. I have reviewed and confirmed the history, physical exam, laboratory and radiologic data with the house staff as documentedin the ICU Resident note. I have reviewed and discussed my treatment plan with the ICU team and other medical/sap security consultant staff, making frequent assessments and decisions regarding this patient's complex medical care. Critical care was necessary to treat or prevent imminent or life-threatening deterioration of the following conditions: Active problems: Aortic dissection s/p stenting Concern for spinal cord ischemia vs epidural hematoma Acute hypoxic respiratory failure Fluid Overload Attending Impression / Plans: His mental status is drastically improved--Looks like a new person. Sitting in the chair, laughing,conversant, talking about his new lease on life. Liberalized BP goals per vascular--will discharge with BP goal 140-180 until follow up in clinic. Decreasing quetiapine doses by half. No plans for active diuresis today. On room air and much less edematous. No active plans for a fluid balance goal. Silverio Locke MD Seasonal Recruiter Department of Anesthesiology * Timmy Rosales - 05/10/2023 3:57 PM CST Fr Timmy Rosales [phone] 05/10/23 1500 Time Spent Start Time 1330 Stop Time 1340 Time Calculation (min) 10 min Patient Spiritual Assessment Spirituality Assessed Yes Rastafarian Affiliation Mu-Ism Active in Synagogue Yes Spiritual Needs Communion;Prayer Clinical Encounter Type Visited With Patient and family together Response Type Continuing visit Routine Visit Follow-up Continue Visiting Yes Reason for visit Sacramental;Support Sacramental Encounters Communion Patient wants communion Communion Given Indicator Yes Outcomes and Progress Aligning care with patient's values Achieved Preserve dignity and respect Achieved Demonstrating care and respect Achieved Interventions Interventions Active listening;Prayer;Offer spiritual/alevism support ([place]) TRO OPTICS ENGINEER * Kim Bello, PT - 05/10/2023 11:40 AM CST Physical Therapy Physical Therapy Initial Assessment NOTE: This is a summary note for the grande assessments completed during the evaluation session. For full details, review chart review for all flowsheets documented on by this physical therapist on thisdate. Vital signs documented in vital signs flowsheet. Assessment Assessment Prognosis: Good Problem List: Decreased strength, Decreased endurance, Impaired balance, Decreased mobility Problem List Comments: PT Diagnosis:TEVAR, spinal cord ischemia results in above listed activity deficits and impairments which prevent full participation in home and community mobility. Plan Plan Plan : Plan of care initiated, If this is the last note, consider this the discharge summary PT Recommendation and Plan Recommendation/Plan PT Recommendation/Plan: Inpatient Rehab Facility Patient at high risk for: Falls, Readmission, Injury due to reduced functional status Recommend Inpatient Rehab/Acute Rehab due to: Not at baseline due to impaired ability to complete ADLs, Impaired ability to complete functional mobility PT Frequency during current admission: 5-7x/wk Treatment/Interventions during current admission: Balance Training, Bed mobility, Endurance training, Gait training, Stair training, Therapeutic activity, Therapeutic exercise PT - Next Appointment: 05/11/23 PT Evaluation Complete: Yes General Information General Chart Reviewed: Yes Session Type: Evaluation PT Received On: 05/10/23 Safe Environment: Arm band checked, Patient found in supine, Gait belt not utilized, see comment Subjective: Agreeable to Therapy Family/Caregiver Present: Yes Physical Therapy-Patient Goal: Pt does not state a goal Prior Function Prior Function Level of [place]: Independent with ADLs, Independent functional transfers, Independent with ambulation Lives With: Spouse, Family Receives Help From: Spouse/Significant other, Family (real time analyst assist available) Fall within the last 6 months: No Home Living Home Living Type of Home: House Home Layout: Work/family area in basement, Two level, Stairs with rails # of Steps-Railed: 20 Home Access: Stairs to enter with rails Entrance Stairs-Number of Steps: 3 Home Mobility Equipment-Available: None Precautions Precautions Precautions: Fall risk Pain Pain Assessment Pain Assessment: 0-10 Pain Score: 10 - Worst possible pain Pain Location: Back (Lumbar) Pain Interventions: Medication (See MAR), Repositioned, RN Notified Cognition Cognition Arousal/Alertness: Alert Orientation : Oriented X4 (person, place, time, situation) Following Commands: Follows all commands and directions without difficulty 6 Clicks Basic Mobility - 6 Click How much difficulty does the patient have: Turning over in bed: A lot How much difficulty does the patient currently have: Sitting down and standing up from a chair witharms?: A lot How much difficulty does the patient have: Moving from lying on back to sitting on the side of the bed?: A lot How much difficulty does the patient have: Moving to and from a bed to a chair including wheelchair?: A lot How much help does the patient currently need: Walk in hospital room?: Total How much help from another person does the patient currently need: Climbing 3-5 steps with a railing?: Total Total 6 Click Score (range 6-24): 10 Score Interpretation: 10 Bed Mobility Bed Mobility Bed Mobility: Yes Bed Mobility 1 Bed Mobility From 1: Supine Bed Mobility Type 1: To Bed Mobility to 1: Edge of bed Level of Assistance 1: Moderate Assist Bed Mobility Comments 1: manual assist to elevate trunk Transfers Transfers Transfer: Yes Transfer 1 Transfer From 1: Sit Transfer Type 1: To and from Transfer to 1: Stand Technique 1: Sit to stand Transfer Device 1: Hand held assist Transfer Level of Assistance 1: Moderate Assist (assist x 2) Trials/Comments 1: manual assist for force production, blocking at B knees Transfers 2 Transfer From 2: Bed Transfer Type 2: To Transfer to 2: Chair with arms Technique 2: Stand and step Transfer Device 2: Hand held assist Transfer Level of Assistance 2: Moderate Assist (assist x 2) Trials/Comments 2: manual assist for force production and weight shifting Balance Static Sitting Balance Static Sitting-Balance Support: Bilateral upper extremity supported Static Sitting-Sitting Surface: Bed Static Sitting-Level of Assistance: Minimum assistance Static Sitting-Comment/# of Minutes: loss of balance anteriorly Static Standing Balance Static Standing-Balance Support: Bilateral upper extremity supported Static Standing-Standing Surface: Floor Static Standing-Level of Assistance: Moderate assistance (assist x 2) Static Standing-Comment/# of Minutes: manual assist for force production, blocking at B knees Ambulation Ambulation Ambulation: No Stairs Curbs RLE Assessment RLE Assessment RLE Assessment: Exceptions to WFL Strength RLE R Hip Flexion: 4/5 R Knee Flexion: 4/5 R Knee Extension: 4/5 R Ankle Dorsiflexion: 4/5 LLE Assessment LLE Assessment LLE Assessment: Exceptions to WFL Strength LLE L Hip Flexion: 4/5 L Knee Flexion: 4/5 L Knee Extension: 4/5 L Ankle Dorsiflexion: 4/5 Equipment Used Safe Environment End of Session Safe Environment End of Therapy Session: Patient left in recliner, RN notified, Call light within reach Other Comments PT Goals Multi-Disciplinary Problems (from Physical Therapy) Active Problems Problem: Mobility Start Date: 05/10/23 Goal Start Date Expected End Date End Date LTG - Patient will ambulate community distance 05/10/23 06/10/23 -- Goal Details: independent Goal Start Date Expected End Date End Date STG - Patient will ambulate 05/10/23 05/20/23 -- Goal Details: 300' with LRD and SBA Goal Start Date Expected End Date End Date STG - Patient will ascend and descend a flight of stairs 05/10/23 05/20/23 -- Goal Details: with rail and Min A Problem: Transfers Start Date: 05/10/23 Goal Start Date Expected End Date End Date STG - Transfer from bed to chair 05/10/23 05/20/23 -- Goal Details: SBA Goal Start Date Expected End Date End Date STG - Patient to transfer to and from sit to supine 05/10/23 05/20/23 -- Goal Details: SBA Goal Start Date Expected End Date End Date STG - Patient will transfer sit to and from stand 05/10/23 05/20/23 -- Goal Details: SBA Problem: PT Misc Start Date: 05/10/23 Goal Start Date Expected End Date End Date PT STG - Patient and caregivers will participate in and demonstrate understanding of therapeutic exercise and safe mobility strategies to improve independence with functional mobility. 05/10/23 05/20/23 -- TRO OPTICS ENGINEER * Lisa Landa MD - 05/10/2023 10:01 AM CST Neurosurgery Brief note: Lumbar drain Removal Patient with lumbar drain. Decision made to discontinue lumbar drain. Drain removed. Site closed with single interrupted stitch using 3-0 monocryl suture. Patient tolerated the procedure well. No CSFleak noted after procedure. Drain tip intact. - monitor for drainage from drain site - please page NSGY pager transformation manager if any concerns ([phone]) Lisa Landa MD TRO OPTICS ENGINEER * Flex Parsons MD - 05/10/2023 8:13 AM CST Vascular Surgery Daily Progress Patient Name/MRN: Eriberto Chau [id number] Treatment Team: Vascular Surgery- Pager: [phone] Attending: Faustino Herrera MD Today's Date: 05/10/2023 Room/Bed: [place] [id number]/[id number] Admit Date: 05/01/2023 Code Status: Full Code Subjective Chief complaint: Type B aortic dissection Events During This Hospitalization: 05/02: TEVAR, L subclavian stent placement Events Over Last 24 Hours: - stable neuro exam today, symmetric - continued labile pressures with systolics into 200s overnight - WBC 18.7 from 14 Objective Vitals: 24hr Min/Max: Temp Min: 36.9 ??C (98.4 ??F) Max: 38.4 ??C (101.1 ??F) Pulse Min: 75 Max: 114 BP Min: 142/57 Max: 198/74 Resp Min: 12 Max: 30 SpO2 Min: 94 % Max: 100 % Most Recent : Vitals: 05/10/23 0700 BP: Pulse: 88 Resp: 14 Temp: (!) 38.2 ??C (100.8 ??F) SpO2: 96% I/O last 2 completed shifts: In: 1940.9 [P.O.:480; I.V.:930.9; IV Piggyback:530] Out: 4581 [Urine:4575] I/O this shift: In: 44.9 [I.V.:44.9] Out: 100 [Urine:100] Physical Exam: General: awake and alert Neuro: BUE: 4-5/5 strength throughout, sensation intact; RLE: 4/5 ankle flexion, 4/5 knee flexion, 4/5 hip flexion; LLE: 4/5 throughout; sensation intact bilatereally Cardiac: regular rate and rhythm Pulses: 2+ and symmetric Palpable DP bilaterally, palpable L radial Lungs: NLB on CPAP at time of evaluation Abdomen: normal findings: soft, non-tender Lab/Radiology/Diagnostic Review: Laboratory review: Lab results in the last 12 hours: Recent Results (from the past 12 hour(s)) Potassium, whole blood Collection Time: 05/09/23 8:16 PM Result Value Ref Range Potassium, bld 4.3 3.3 - 4.9 mmol/L Oxyhemoglobin, central venous Collection Time: 05/09/23 11:35 PM Result Value Ref Range Oxyhemoglobin, CV 72.4 % POCT glucose Collection Time: 05/10/23 12:16 AM Result Value Ref Range Glucose, POC 129 70 - 199 mg/dL CBC without differential Collection Time: 05/10/23 12:37 AM Result Value Ref Range WBC 18.7 (H) 3.8 - 9.9 K/cumm Hgb 9.9 (L) 13.0 - 17.5 g/dL Hct 29.9 (L) 38.9 - 50.3 % Plt 390 150 - 400 K/cumm MPV 9.4 9.1 - 12.3 fL RBC 3.35 (L) 4.30 - 5.80 M/cumm MCV 89.3 81.3 - 96.4 fL MCH 29.6 27.1 - 33.3 pg MCHC 33.1 32.3 - 35.7 g/dL RDW CV 13.2 11.1 - 14.9 % RDW SD 43.5 35.7 - 48.1 fL NRBC abs 0.00 0.00 - 0.01 K/cumm Basic metabolic panel Collection Time: 05/10/23 12:37 AM Result Value Ref Range Sodium 134 (L) 135 - 145 mmol/L Potassium, pl 4.1 3.3 - 4.9 mmol/L Chloride 100 97 - 110 mmol/L CO2 23 22 - 32 mmol/L Anion gap 11 2 - 15 mmol/L BUN 18 6 - 25 mg/dL Creatinine 0.90 0.80 - 1.30 mg/dL Glucose 128 70 - 199 mg/dL Calcium 9.1 8.5 - 10.3 mg/dL Magnesium Collection Time: 05/10/23 12:37 AM Result Value Ref Range Magnesium 2.7 (H) 1.4 - 2.5 mg/dL Phosphorus Collection Time: 05/10/23 12:37 AM Result Value Ref Range Phosphorus, pl 3.2 2.3 - 4.5 mg/dL Protime-INR Collection Time: 05/10/23 12:37 AM Result Value Ref Range PT 15.8 (H) 10.3 - 13.7 sec INR 1.39 (H) 0.90 - 1.20 aPTT Collection Time: 05/10/23 12:37 AM Result Value Ref Range aPTT 32 28 - 38 sec Type and screen Collection Time: 05/10/23 12:37 AM Result Value Ref Range ABO Rh A Positive Ellen, indirect Negative Potassium, whole blood Collection Time: 05/10/23 12:37 AM Result Value Ref Range Potassium, bld 4.1 3.3 - 4.9 mmol/L Lactate Collection Time: 05/10/23 12:37 AM Result Value Ref Range Lactate 0.6 (L) 0.7 - 2.0 mmol/L Blood gas, arterial Collection Time: 05/10/23 12:37 AM Result Value Ref Range pH, Art 7.41 7.35 - 7.45 PCO2, Arterial 34 (L) 35 - 45 mmHg PO2, Arterial 131 (H) 83 - 108 mmHg HCO3 Art (Calculated) 22 20 - 30 mmol/L BE, art -3 mmol/L O2 Sat Art (Measured) 99 (H) 90 - 95 % eGFR Collection Time: 05/10/23 12:37 AM Result Value Ref Range eGFR >90 >=60 mL/min/1.73 m2 Assessment/Plan Principal Problem: Dissection of aorta, unspecified portion of aorta (HCC) Active Problems: Dissection of thoracoabdominal aorta (CMS/HCC) (HCC) Problem List Cardiac and Vasculature * (Principal) Dissection of aorta, unspecified portion of aorta (HCC) Current Assessment & Plan 32y/o male with uncontrolled HTN who presented to an OSH ER with acute onset shortness of breath, chest pain and back pain. 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 He was transferred to [facility] for further evaluation and treatment. Here, he was seen by vascular surgery and admitted to the CTICU for impulse control. He had recurrent worsening pain and a repeat CTA this morning. This showed ???interval cranial propagation of a type B thoracic aortic dissection which now extends from approximately zone 3 to theleft common iliac artery; no change in aortic caliber; this dissection may originate in the midthoracic aorta, or fenestration is present at the level of T4; increasing fat stranding about the aorticarch and great vessels, likely reactive in the setting of dissection propagation, no extraluminal contrast present to suggest aortic rupture?? , for which CTS was consulted. CTA reviewed with Daniel Balderas, and Mesha. All feel these findings not to be telephone service representative of a type a dissection, therefore no urgent cardiac surgery is recommended. However, he is continuing to have significant pain despite BP control and pain medications, in addition to the propagationof the dissection. Recommend reaching back out to vascular surgery to consider a vascular intervention. I have called the on-call vascular fellow and left a voicemail. Echo ordered stat. This showed LVEF of 41%, dilated atria, dilated IVC, normal aortic root size, nopericardial effusion. As above, recommend following up with vascular surgery. Please get stat chest abdomen pelvis CTA if any clinical or neurological changes. Continue impulse control. Consider cardiology consult in the setting of difficult to control, longstanding hypertension and findings of HFrEF with LVEF of 41%. Relevant Orders Critical Care (Completed) Central Line (Completed) Intubation (Completed) Insert arterial line (Completed) Dissection of thoracoabdominal aorta (CMS/HCC) (HCC) Relevant Orders CV Hybrid Room (Default Orderable) (Completed) Insert arterial line (Completed) Critical Care (Completed) Critical Care (Completed) 32 yo M who presented with Type B aortic dissection with worsening pain, now s/p TEVAR and L subclavian artery stent. Now with concern for lumbar spinal ischemia. He has had improving lower extremitystrength after MAP augmentation and lumbar drain placement. - Continue q1h lower extremity neurovascular checks - Goal MAP > 100 - Hgb > 10, Plt > 100 - f/u cardiology (Dr Abarca) consult - lumbar drain to remain for five days total, can remove today Flex Parsons MD, MSc [phone] For patients or family members viewing this note through [employer] programs: This note was written as a [...] care. Cosigned by Faustino Herrera MD at 2023 12:23 PM ELECTRO OPTICS ENGINEER TRO OPTICS ENGINEER TRO OPTICS ENGINEER * Lisa Landa MD - 05/10/2023 6:11 AM CST Neurosurgery Daily Progress Note 05/10/2023 Hospital Course 05/05 Consulted for LD placement. LD placed. 05/06 Neurology consulted, rec stroke workup, ASA 81. MRI done- Subdural hematoma largest at L4 withnerve root displacement but not severe mass effect, linear cord signal abnormality at T4-5. Extubated after MRI. 05/07 YESENIA 05/08 ketamine/precedex dc. LED ordered. 05/09 LD clamped. Subjective Complaining of neck pain Objective Physical Exam Alert, opens eyes spontaneously, regards, follows all commands, orientedx3 Speech is fluent. Answers questions appropriately. EOMI, face symmetric Upper Extremity D B T HG HI L 5/5 5/5 5/5 5/5 5/5 R 5/5 5/5 5/5 5/5 5/5 Lower Extremity IP Q H TA Gn L 4+/5 4/5 4+/5 4+/5 4+/5 R 4+/5 4/5 4+/5 4+/5 4+/5 Vitals 24hr min/max vitals: Temp Min: 36.9 ??C (98.4 ??F) Max: 38.3 ??C (100.9 ??F) Pulse Min: 75 Max: 114 Resp Min: 12 Max: 30 SpO2 Min: 94 % Max: 100 % Intake and Output I/O last 2 completed shifts: In: 3201.3 [P.O.:800; I.V.:1081.3; IV Piggyback:1320] Out: 5531 [Urine:5480] Medications Scheduled Scheduled Medications Medication Dose Route Frequency acetaminophen (TYLENOL) tablet 1,000 mg 1,000 mg oral Q6H SUSAN aspirin chewable tablet 81 mg 81 mg oral Daily gabapentin (NEURONTIN) capsule 300 mg 300 mg oral TID [Held by Provider] heparin 5,000 unit/mL injection 5,000 Units 5,000 Units subcutaneous Q8H SUSAN meropenem (MERREM) 1,000 mg/110 mL in sodium chloride 0.9% (premix) 1,000 mg 1,000 mg intravenous Q8H SUSAN methocarbamoL (ROBAXIN) tablet 1,000 mg 1,000 mg oral TID niCARdipine in 0.9% sodium chloride (CARDENE) 25,000 mcg/50 mL (500 mcg/mL) infusion (premix) - ADSOverride Pull pantoprazole DR (PROTONIX) extended release tablet 40 mg 40 mg oral Daily polyethylene glycol (MIRALAX) packet 17 g 17 g oral Daily potassium chloride 40 mEq/100 mL in sterile water (premix) 40 mEq 40 mEq intravenous Daily QUEtiapine (SEROquel) tablet 100 mg 100 mg oral Daily QUEtiapine (SEROquel) tablet 150 mg 150 mg oral Nightly sodium chloride (OCEAN) 0.65 % nasal spray 2 spray 2 spray each nostril Q2H while awake sodium chloride 0.9% flush 0.5-20 mL 0.5-20 mL intra-catheter Q8H SUSAN As needed PRN Medications Medication Dose Route Frequency Last Admin albuterol HFA (PROVENTIL HFA,VENTOLIN HFA,PROAIR HFA) 90 mcg/actuation inhaler 2 puff 2 puff inhalation Q4H PRN (RT) camphor-menthoL (SARNA) 0.5-0.5 % lotion topical Q6H PRN Given at 05/08/23 0535 Carrier Fluids for Secondary Infusion - 0.9% Sodium Chloride 30 mL intravenous PRN 30 mL at 05/06/23 0827 Carrier Fluids for Secondary Infusion - 0.9% Sodium Chloride 30 mL intravenous PRN 30 mL at 05/03/23 0855 haloperidol (HALDOL) injection 10 mg 10 mg intravenous Q4H PRN HYDROmorphone (DILAUDID) injection 0.5 mg 0.5 mg intravenous Q2H PRN 0.5 mg at 05/09/23 1957 labetaloL (NORMODYNE,TRANDATE) injection 10 mg 10 mg intravenous Q6H PRN 10 mg at 05/10/23 0454 niCARdipine in 0.9% sodium chloride (CARDENE) 25,000 mcg/50 mL (500 mcg/mL) infusion (premix) - ADSOverride Pull ondansetron (ZOFRAN) injection 4 mg 4 mg intravenous Q6H PRN 4 mg at 05/08/23 2141 oxyCODONE (ROXICODONE) tablet 10 mg 10 mg oral Q3H PRN 10 mg at 05/10/23 0030 potassium chloride 40 mEq/100 mL in sterile water (premix) 40 mEq 40 mEq intravenous BID PRN prochlorperazine (COMPAZINE) injection 5 mg 5 mg intravenous Q6H PRN 5 mg at 05/07/23 1936 sodium chloride 0.9% flush 0.5-20 mL 0.5-20 mL intra-catheter PRN Labs Lab Results Component Value Date SODIUM 134 (L) 05/10/2023 SODIUM 134 (L) 05/09/2023 SODIUM 134 (L) 05/08/2023 Lab Results Component Value Date GLUCOSE 128 05/10/2023 CALCIUM 9.1 05/10/2023 POTASSIUM 4.1 05/10/2023 CO2 23 05/10/2023 CHLORIDE 100 05/10/2023 BUNSER 18 05/10/2023 CREATININE 0.90 05/10/2023 Lab Results Component Value Date WBC 18.7 (H) 05/10/2023 WBC 14.9 (H) 05/09/2023 WBC 14.2 (H) 05/08/2023 HGB 9.9 (L) 05/10/2023 HGB 10.2 (L) 05/09/2023 HGB 10.1 (L) 05/09/2023 HCT 29.9 (L) 05/10/2023 HCT 31.0 (L) 05/09/2023 HCT 30.1 (L) 05/09/2023 LABPLAT 390 05/10/2023 LABPLAT 274 05/09/2023 LABPLAT 298 05/08/2023 Lab Results Component Value Date INR 1.39 (H) 05/10/2023 INR 1.25 (H) 05/09/2023 INR 1.25 (H) 05/08/2023 PT 15.8 (H) 05/10/2023 PT 14.3 (H) 05/09/2023 PT 14.2 (H) 05/08/2023 APTT 32 05/10/2023 APTT 33 05/09/2023 APTT 35 05/08/2023 No components found for: TROPONIN PT/OT Evaluation Assessment/Plan Hospital Day: 10 Eriberto Chau is a 32 y.o. year old male who required lumbar drain placement due to concern for spinal cord infarction following TEVAR for aortic dissection. Plan Lumbar drain management per CT-ICU - currently clamped with plans to discontinue today. Responsible Team Lisa Landa MD (Plate Keeper) Phylicia Arshad MD PhD (Perez) Devyn Mcgraw MD (Senior) Jorge Rivers MD PhD (Chief) For any questions or concerns, please contact the nurse practitioner signed in to the chart. If youare unable to reach them, you may contact the residents as listed. If it is after 6pm or you are unable to reach the SECTION CUTTER or resident team, please page the Neurosurgery Call Pager at [phone]. Cosigned by Jaden Smith MD at 05/10/2023 9:12 PM ELECTRO OPTICS ENGINEER TRO OPTICS ENGINEER TRO OPTICS ENGINEER TRO OPTICS ENGINEER Associated attestation - Jaden Smith MD - 05/10/2023 9:12 PM ELECTRO OPTICS ENGINEER I have seen and examined the patient on 05/10/23. I agree with the findings and plan of care as documented in the resident's/fellow's note.. * ToMeron MD - 05/10/2023 1:[address] ICU Daily Progress Shifts: MD Shift Options: CTI Blue 3 PM Subjective Patient is a 32 y.o. male admitted to the hospital on 05/01/2023 4:58 AM with/following: Type B Aortic dissection ICU events 05/02: TEVAR 05/03: R IJ CVC 05/05: c/f spinal cord ischemia, lumbar drain placed Overnight events: 05/09 - clamp trial LD, OOBTC - IV lasix 40 BID - dc midaz - seroquel 100 qAM, 150 qPM - prn labetalol 10 q6h prn - haldol 10 to q4h prn - f/u LED:no DVT - check LFTs - OOBTC - f/u cards c/s, Dr. Abarca 05/09 pm - SBP 200s, x1 labetalol 10 - intermittently on cardene gtt - Hgb 9.9 - ScVO2 72.4 - lumbar drain clamped, plan to remove tomorrow - DVT ppx has been held Objective Medications: Scheduled Meds:acetaminophen, 1,000 mg, oral, Q6H SUSAN aspirin, 81 mg, oral, Daily gabapentin, 300 mg, oral, TID [Held by Provider] heparin, 5,000 Units, subcutaneous, Q8H SUSAN meropenem, 1,000 mg, intravenous, Q8H SUSAN methocarbamoL, 1,000 mg, oral, TID niCARdipine in 0.9% sodium chloride, , , pantoprazole DR, 40 mg, oral, Daily polyethylene glycol, 17 g, oral, Daily potassium chloride, 40 mEq, intravenous, Daily QUEtiapine, 100 mg, oral, Daily QUEtiapine, 150 mg, oral, Nightly sodium chloride, 2 spray, each nostril, Q2H while awake sodium chloride 0.9%, 0.5-20 mL, intra-catheter, Q8H SUSAN Continuous Infusions:Lactated Ringer's, 10 mL/hr, Last Rate: 10 mL/hr (05/10/23 0000) lidocaine, 1 mg/kg/hr ([place]), Last Rate: 1 mg/kg/hr (05/10/23 010) niCARdipine, 0-2.5 mcg/kg/min, Last Rate: Stopped (05/10/23 0208) sodium chloride 0.9%, 3-12 mL/hr, Last Rate: 6 mL/hr (05/10/23 010) sodium chloride 0.9%, 3-12 mL/hr, Last Rate: 6 mL/hr (05/06/23 1000) Vitals: Temp: [36.9 ??C (98.4 ??F)-39 ??C (102.2 ??F)] 38.3 ??C (100.9 ??F) Pulse: [75-117] 114 BP: (142-198)/(57-74) 142/57 Resp: [11-30] 15 SpO2: [91 %-100 %] 100 % Arterial Line BP: (120-260)/(59-106) 158/59 FiO2 (%): [21 %-30 %] 30 % Fluid balance: I/O this shift: In: 350.3 [I.V.:240.3; IV Piggyback:110] Out: 575 [Urine:575] Intake/Output Summary (Last 24 hours) at 05/10/2023 0253 Last data filed at 05/10/2023 0100 Gross per 24 hour Intake 1964.27 ml Output 4898 ml Net -2933.73 ml Ventilator settings: FiO2 (%): 30 % (05/10 100) Hemodynamic parameters: PAP: -- CVP: 4 mmHg (05/10 100) PCWP: -- CO: -- CI: -- SVO2: -- Pacemaker Overdrive Pacing: -- Cardiac Rhythm: Sinus tachycardia (05/10 100) Pacer Mode: -- Physical exam: Physical Exam: Neuro: AOx4, PERRL Cardiac: RR, S1/S2, periphery warm, pulses palpable distally Resp: CTAB GI: abdomen round, soft, normal bowel sounds : hutton w/ clear yellow urine Skin: pink, warm, dry, midline sternotomy incision open to air, C/D/I MSK: UE strength intact b/l, LLE strength improving, 3/5 strength throughout LLE, 4/5 strength in RLE. LTDA: RIJ Quad lumen, R radial a-line, PIV x3, [place] Laboratory data: Recent Labs Lab Units 05/10/233605/09/2362105/09/[id number]/08/[id number]/08/23107 WBC K/cumm 18.7* -- 14.9* -- 14.2* HEMOGLOBIN, POC g/dL -- 10.2* -- < > -- HEMOGLOBIN g/dL 9.9* -- 10.1* -- 9.9* HEMATOCRIT % 29.9* -- 30.1* -- 29.9* HEMATOCRIT POC % -- 31.0* -- < > -- PLATELETS K/cumm 390 -- 274 -- 298 < > = values in this interval not displayed. Recent Labs Lab Units 05/10/233605/09/233405/08/23107 SODIUM mmol/L 134* 134* 134* POTASSIUM PLASMA mmol/L 4.1 See Comment 4.9 CHLORIDE mmol/L 100 104 104 CO2 mmol/L 23 20* 19* BUN SERUM mg/dL 18 17 18 CREATININE mg/dL 0.90 0.86 1.04 CALCIUM mg/dL 9.1 8.5 8.8 Recent Labs Lab Units 05/10/233605/09/233405/08/23107 PROTIME (PT) sec 15.8* 14.3* 14.2* INR 1.39* 1.25* 1.25* APTT sec 32 33 35 Recent Labs Lab Units 05/10/233605/09/2362105/09/233505/08/23192405/08/23 0802 PH ART 7.41 7.36 7.39 < > 7.36 PCO2 ART mmHg 34* -- 29* -- 34* PO2 ART mmHg 131* -- 108 -- 89 PO2 ARTERIAL POC mmHg -- 103 -- < > -- BASE EXC ART mmol/L -3 -- -6 -- -6 < > = values in this interval not displayed. Review of the laboratory data shows: total spine MRI 05/07 w/ dorsal hematoma and assoc displacement of cauda equina nerve roots, no evidence of ischemia Impression and Plan: Active problems/Diagnoses and Plans: #Acute postoperative pain #Agitation - tylenol susan, prn oxy/HM for pain - prn haldol, versed for anxiety - lido gtt 1 #Acute type B aortic dissection #C/f Spinal Cord Ischemia #Hypertension CT showed extension of the type B thoracic aortic aneurysm, terminates just above the bifurcation, with origins the left renal artery and celiac artery arising off the false lumen. 05/05 upon extubation pt LE exam w/ LLE ankle flexion only, RLE w/ antigravity knee flexion, c/f spinal cord ischemia - OR 05/02 for TEVAR - Vascular surgery following. -recs: Hgb >10, MAP >100, SBP <180 - Lumbar drain placed 05/05 w/ NSGY, clamp trial 05/09 , plan to remove tomorrow - clevidipine gtt (tachyphylaxis w/ esmolol) vs levo gtt to meet map goals - q1h NV checks - total spine MRI 05/07 w/ dorsal hematoma and assoc displacement of cauda equina nerve roots, no evidence of ischemia - Neurology c/s following 05/07, appreciate recs #Respiratory insufficiency Expected postoperatively. History of desat and wheezing, after administration of sugammadex and zofran in the OR prior to attempt to extubate. Required albuterol and epi pushes. BP stable throughout event. Lungs clear on arrival. Episode of desat resolved with recruitment breaths. - Reintubated 05/07 for anesthesia, extubated after successful RSBI - CXR w improving volume overload - Currently on optiflow, weaning to SpO2 >92% #Obstructive sleep apnea - consider NPPV nightly once extubated #Epistaxis Significant nose bleed in the OR requiring intra-op ENT c/s. DL performed, no other sources of bleeding visualized. ACT post protamine 149. - ENT following - ocean spray tid - no other s/s bleeding #Nausea -prn ondansetron, compazine #Acute blood loss anemia #Thrombocytopenia - Daily CBC #Fever - cont APAP q6h susan - TA 05/05 growing Haemophilus Inf - UA, BCx x2 - ngtd - susana(05/04 - 05/10), linezolid (05/04-05/06) - WBC 14.9, continue to monitor #Hypertriglyceridemia - TG 895 05/04 on prop gtt - TG 179 on 05/05 - f/u in am, as pt is on clevidipine gtt ICU Standards of Care: Diet: reg diet DVT prophylaxis: SCDs PUD prophylaxis: PPI Dispo: ICU Code status: Full code TDLA: R IJ Quad lumen, PIVx3, R radial a-line, Anni Mendoza MD Anesthesiology PGY-1 Cosigned by Dalton Locke MD at 05/12/2023 3:28 PM ELECTRO OPTICS ENGINEER TRO OPTICS ENGINEER TRO OPTICS ENGINEER Associated attestation - Dalton Locke MD - 05/12/2023 3:28 PM ELECTRO OPTICS ENGINEER Attending Documentation: I have seen and examined this critically ill patient on the day of service. I have reviewed and confirmed the history, physical exam, laboratory and radiologic data with the house staff as documentedin the ICU Resident note. I have reviewed and discussed my treatment plan with the ICU team and other medical/sap security consultant staff, making frequent assessments and decisions regarding this patient's complex medical care. Critical care was necessary to treat or prevent imminent or life-threatening deterioration of the following conditions: Active problems: Aortic dissection s/p stenting Concern for spinal cord ischemia vs epidural hematoma Acute hypoxic respiratory failure Fluid Overload Attending Impression / Plans: Tolerated clamping trial well, neurosurgery to pull lumbar drain today. Mental status is much improved. Will discuss liberalizing BP goals with vascular surgery today. Discontinue lumbar drain. Lay flat for four hours following removal. Incidentally, he hasn't had a BM in a few days...but we will wait until after he's done with his lay flat time to give him a suppository. Continuing to augment BP given concern for spinal cord ischemia, but now that his exam is essentially back to normal we will discuss liberalizing his BP goal with vascular surgery. Continuing PO quetiapine BID, PRN haloperidol. Mental status much improved. Resume DVT ppx this evening now that lumbar drain is removed. No plans for active diuresis today. On room air and much less edematous. No active plans for a fluid balance goal. Silverio Locke MD Seasonal Recruiter Department of Anesthesiology * Timmy Rosales - 05/09/2023 4:09 PM CST Fr Timmy Rosales [phone] 05/09/23 1600 Time Spent Start Time 1200 Stop Time 1210 Time Calculation (min) 10 min Patient Spiritual Assessment Spirituality Assessed Yes Rastafarian Affiliation Mu-Ism Active in Synagogue Yes Spiritual Needs Prayer Clinical Encounter Type Visited With Patient and family together Response Type Continuing visit Routine Visit Follow-up Continue Visiting Yes Reason for visit Sacramental;Support Outcomes and Progress Aligning care with patient's values Achieved Preserve dignity and respect Achieved Demonstrating care and respect Achieved Interventions Interventions Active listening;Offer spiritual/alevism support;Prayer (Benediction) TRO OPTICS ENGINEER * Lisa Landa MD - 05/09/2023 7:31 AM CST Neurosurgery Daily Progress Note 05/09/2023 Hospital Course 05/05 Consulted for LD placement. LD placed. 05/06 Neurology consulted, rec stroke workup, ASA 81. MRI done- Subdural hematoma largest at L4 withnerve root displacement but not severe mass effect, linear cord signal abnormality at T4-5. Extubated after MRI. 05/07 YESENIA 05/08 ketamine/precedex dc. LED ordered. Subjective No complaints this AM Objective Physical Exam Alert, opens eyes spontaneously, regards, follows all commands, orientedx3 Speech is fluent. Answers questions appropriately. EOMI, face symmetric Upper Extremity D B T HG HI L 5/5 5/5 5/5 5/5 5/5 R 5/5 5/5 5/5 5/5 5/5 Lower Extremity IP Q H TA Gn L 4/5 4/5 4/5 4/5 4/5* R 4+/5 4/5 4/5 4/5 4/5 * LLE exam pain-limited Vitals 24hr min/max vitals: Temp Min: 37.3 ??C (99.1 ??F) Max: 39.7 ??C (103.5 ??F) Pulse Min: 77 Max: 129 Resp Min: 8 Max: 43 SpO2 Min: 91 % Max: 100 % Intake and Output I/O last 2 completed shifts: In: 3642.2 [P.O.:1430; I.V.:1202.2; IV Piggyback:1010] Out: 5644 [Urine:5590] Medications Scheduled Scheduled Medications Medication Dose Route Frequency acetaminophen (TYLENOL) tablet 1,000 mg 1,000 mg oral Q6H SUSAN aspirin chewable tablet 81 mg 81 mg oral Daily furosemide (LASIX) 10 mg/mL injection 40 mg 40 mg intravenous BID DIURETIC gabapentin (NEURONTIN) capsule 300 mg 300 mg oral TID [Held by Provider] heparin 5,000 unit/mL injection 5,000 Units 5,000 Units subcutaneous Q8H SUSAN meropenem (MERREM) 1,000 mg/110 mL in sodium chloride 0.9% (premix) 1,000 mg 1,000 mg intravenous Q8H SUSAN methocarbamoL (ROBAXIN) tablet 1,000 mg 1,000 mg oral TID pantoprazole DR (PROTONIX) extended release tablet 40 mg 40 mg oral Daily polyethylene glycol (MIRALAX) packet 17 g 17 g oral Daily potassium chloride 40 mEq/100 mL in sterile water (premix) 40 mEq 40 mEq intravenous Daily QUEtiapine (SEROquel) tablet 100 mg 100 mg oral Nightly sodium chloride (OCEAN) 0.65 % nasal spray 2 spray 2 spray each nostril Q2H while awake sodium chloride 0.9% flush 0.5-20 mL 0.5-20 mL intra-catheter Q8H SUSAN As needed PRN Medications Medication Dose Route Frequency Last Admin albuterol HFA (PROVENTIL HFA,VENTOLIN HFA,PROAIR HFA) 90 mcg/actuation inhaler 2 puff 2 puff inhalation Q4H PRN (RT) camphor-menthoL (SARNA) 0.5-0.5 % lotion topical Q6H PRN Given at 05/08/23 0535 Carrier Fluids for Secondary Infusion - 0.9% Sodium Chloride 30 mL intravenous PRN 30 mL at 05/06/23 0827 Carrier Fluids for Secondary Infusion - 0.9% Sodium Chloride 30 mL intravenous PRN 30 mL at 05/03/23 0855 haloperidol (HALDOL) injection 10 mg 10 mg intravenous Q6H PRN 10 mg at 05/08/23 2205 HYDROmorphone (DILAUDID) injection 0.5 mg 0.5 mg intravenous Q2H PRN 0.5 mg at 05/09/23 0541 midazolam (VERSED) 1 mg/mL injection 2 mg 2 mg intravenous Q2H PRN 2 mg at 05/09/23 0158 ondansetron (ZOFRAN) injection 4 mg 4 mg intravenous Q6H PRN 4 mg at 05/08/23 2141 oxyCODONE (ROXICODONE) tablet 10 mg 10 mg oral Q3H PRN 10 mg at 05/09/23 0454 potassium chloride 40 mEq/100 mL in sterile water (premix) 40 mEq 40 mEq intravenous BID PRN prochlorperazine (COMPAZINE) injection 5 mg 5 mg intravenous Q6H PRN 5 mg at 05/07/23 1936 QUEtiapine (SEROquel) tablet 50 mg 50 mg oral Nightly PRN sodium chloride 0.9% flush 0.5-20 mL 0.5-20 mL intra-catheter PRN Labs Lab Results Component Value Date SODIUM 134 (L) 05/09/2023 SODIUM 134 (L) 05/08/2023 SODIUM 140 05/07/2023 Lab Results Component Value Date GLUCOSE 136 05/09/2023 CALCIUM 8.5 05/09/2023 POTASSIUM See Comment 05/09/2023 CO2 20 (L) 05/09/2023 CHLORIDE 104 05/09/2023 BUNSER 17 05/09/2023 CREATININE 0.86 05/09/2023 Lab Results Component Value Date WBC 14.9 (H) 05/09/2023 WBC 14.2 (H) 05/08/2023 WBC 13.6 (H) 05/07/2023 HGB 10.2 (L) 05/09/2023 HGB 10.1 (L) 05/09/2023 HGB 11.2 (L) 05/08/2023 HCT 31.0 (L) 05/09/2023 HCT 30.1 (L) 05/09/2023 HCT 34.0 (L) 05/08/2023 LABPLAT 274 05/09/2023 LABPLAT 298 05/08/2023 LABPLAT 244 05/07/2023 Lab Results Component Value Date INR 1.25 (H) 05/09/2023 INR 1.25 (H) 05/08/2023 INR 1.28 (H) 05/07/2023 PT 14.3 (H) 05/09/2023 PT 14.2 (H) 05/08/2023 PT 14.6 (H) 05/07/2023 APTT 33 05/09/2023 APTT 35 05/08/2023 APTT 35 05/07/2023 No components found for: TROPONIN PT/OT Evaluation Assessment/Plan Hospital Day: 9 Eriberto Chau is a 32 y.o. year old male who required lumbar drain placement due to concern for spinal cord infarction following TEVAR for aortic dissection. Plan Lumbar drain management per CT-ICU - currently draining 10ml every 2 hours. Responsible Team Lisa Landa MD (Plate Keeper) Phylicia Arshad MD PhD (Perez) Devyn Mcgraw MD (Senior) Jorge Rivers MD PhD (Chief) For any questions or concerns, please contact the nurse practitioner signed in to the chart. If youare unable to reach them, you may contact the residents as listed. If it is after 6pm or you are unable to reach the SECTION CUTTER or resident team, please page the Neurosurgery Call Pager at [phone]. Cosigned by Jaden Smith MD at 05/10/2023 10:06 AM ELECTRO OPTICS ENGINEER TRO OPTICS ENGINEER TRO OPTICS ENGINEER Associated attestation - Jaden Smith MD - 05/10/2023 10:06 AM ELECTRO OPTICS ENGINEER I have seen and examined the patient on 05/09/2023. I agree with the findings and plan of care as documented in the resident's/fellow's note. * Flex Parsons MD - 05/09/2023 7:19 AM CST Vascular Surgery Daily Progress Patient Name/MRN: Eriberto Chau [id number] Treatment Team: Vascular Surgery- Pager: [phone] Attending: Faustino Herrera MD Today's Date: 05/09/2023 Room/Bed: [id number] Admit Date: 05/01/2023 Code Status: Full Code Subjective Chief complaint: Type B aortic dissection Events During This Hospitalization: 05/02: TEVAR, L subclavian stent placement Events Over Last 24 Hours: - lower extremity strength continues to improve, now equal bilaterally - labile pressures with systolics into 200s overnight - WBC stable at 14 Objective Vitals: 24hr Min/Max: Temp Min: 37.3 ??C (99.1 ??F) Max: 39.7 ??C (103.5 ??F) Pulse Min: 77 Max: 129 Resp Min: 8 Max: 43 SpO2 Min: 91 % Max: 100 % Most Recent : Vitals: 05/09/23 0700 BP: Pulse: 86 Resp: 12 Temp: (!) 38.1 ??C (100.6 ??F) SpO2: 96% I/O last 2 completed shifts: In: 3642.2 [P.O.:1430; I.V.:1202.2; IV Piggyback:1010] Out: 5644 [Urine:5590] I/O this shift: In: 58.3 [I.V.:58.3] Out: 100 [Urine:100] Physical Exam: General: awake and alert Neuro: BUE: 4-5/5 strength throughout, sensation intact; RLE: 4/5 ankle flexion, 4/5 knee flexion, 4/5 hip flexion; LLE: 4/5 throughout; sensation intact bilatereally Cardiac: regular rate and rhythm Pulses: 2+ and symmetric Palpable DP bilaterally, palpable L radial Lungs: NLB on optiflow Abdomen: normal findings: soft, non-tender Lab/Radiology/Diagnostic Review: Laboratory review: Lab results in the last 12 hours: Recent Results (from the past 12 hour(s)) POC Blood Gas and Chemistries, Arterial - Collection Time: 05/08/23 7:25 PM Result Value Ref Range pH, Art POC 7.44 7.35 - 7.45 pCO2, Art POC 28 (L) 35 - 45 mmHg pO2, Art POC 83 83 - 108 mmHg Na, POC 135 135 - 145 mmol/L K POC 4.0 3.3 - 4.9 mmol/L Cl, POC 106 97 - 110 mmol/L Ionized Ca, POC 4.58 4.50 - 5.10 mg/dL Glucose, POC 143 70 - 199 mg/dL Lactate, POC 0.8 0.7 - 2.2 mmol/L SO2 (natalia) arterial 98 (H) 90 - 95 % Base excess, POC -4.1 mmol/L HCO3, Art POC 19 (L) 20 - 30 mmol/L Hct, POC 34.0 (L) 41.4 - 51.6 % O2 Sat, Art POC (Calc) 97 % Total Hb, POC 11.2 (L) 13.8 - 17.2 g/dL CBC without differential Collection Time: 05/09/23 12:35 AM Result Value Ref Range WBC 14.9 (H) 3.8 - 9.9 K/cumm Hgb 10.1 (L) 13.0 - 17.5 g/dL Hct 30.1 (L) 38.9 - 50.3 % Plt 274 150 - 400 K/cumm MPV 9.4 9.1 - 12.3 fL RBC 3.32 (L) 4.30 - 5.80 M/cumm MCV 90.7 81.3 - 96.4 fL MCH 30.4 27.1 - 33.3 pg MCHC 33.6 32.3 - 35.7 g/dL RDW CV 13.2 11.1 - 14.9 % RDW SD 43.9 35.7 - 48.1 fL NRBC abs 0.02 (H) 0.00 - 0.01 K/cumm Basic metabolic panel Collection Time: 05/09/23 12:35 AM Result Value Ref Range Sodium 134 (L) 135 - 145 mmol/L Potassium, pl See Comment 3.3 - 4.9 mmol/L Chloride 104 97 - 110 mmol/L CO2 20 (L) 22 - 32 mmol/L Anion gap 10 2 - 15 mmol/L BUN 17 6 - 25 mg/dL Creatinine 0.86 0.80 - 1.30 mg/dL Glucose 142 70 - 199 mg/dL Calcium 8.5 8.5 - 10.3 mg/dL Magnesium Collection Time: 05/09/23 12:35 AM Result Value Ref Range Magnesium 2.7 (H) 1.4 - 2.5 mg/dL Phosphorus Collection Time: 05/09/23 12:35 AM Result Value Ref Range Phosphorus, pl 2.8 2.3 - 4.5 mg/dL Protime-INR Collection Time: 05/09/23 12:35 AM Result Value Ref Range PT 14.3 (H) 10.3 - 13.7 sec INR 1.25 (H) 0.90 - 1.20 aPTT Collection Time: 05/09/23 12:35 AM Result Value Ref Range aPTT 33 28 - 38 sec Triglycerides Collection Time: 05/09/23 12:35 AM Result Value Ref Range Triglycerides 533 (H) <=149 mg/dL eGFR Collection Time: 05/09/23 12:35 AM Result Value Ref Range eGFR >90 >=60 mL/min/1.73 m2 Blood gas, arterial Collection Time: 05/09/23 12:36 AM Result Value Ref Range pH, Art 7.39 7.35 - 7.45 PCO2, Arterial 29 (L) 35 - 45 mmHg PO2, Arterial 108 83 - 108 mmHg HCO3 Art (Calculated) 18 (L) 20 - 30 mmol/L BE, art -6 mmol/L O2 Sat Art (Measured) 98 (H) 90 - 95 % Potassium, whole blood Collection Time: 05/09/23 12:36 AM Result Value Ref Range Potassium, bld 3.9 3.3 - 4.9 mmol/L POC Blood Gas and Chemistries, Arterial - Collection Time: 05/09/23 6:22 AM Result Value Ref Range pH, Art POC 7.36 7.35 - 7.45 pCO2, Art POC 35 35 - 45 mmHg pO2, Art POC 103 83 - 108 mmHg Na, POC 139 135 - 145 mmol/L K POC 4.4 3.3 - 4.9 mmol/L Cl, POC 109 97 - 110 mmol/L Ionized Ca, POC 4.82 4.50 - 5.10 mg/dL Glucose, POC 136 70 - 199 mg/dL Lactate, POC 0.5 (L) 0.7 - 2.2 mmol/L SO2 (natalia) arterial 99 (H) 90 - 95 % Base excess, POC -5.1 mmol/L HCO3, Art POC 20 20 - 30 mmol/L Hct, POC 31.0 (L) 41.4 - 51.6 % O2 Sat, Art POC (Calc) 98 % Total Hb, POC 10.2 (L) 13.8 - 17.2 g/dL Assessment/Plan Principal Problem: Dissection of aorta, unspecified portion of aorta (HCC) Active Problems: Dissection of thoracoabdominal aorta (CMS/HCC) (HCC) Problem List Cardiac and Vasculature * (Principal) Dissection of aorta, unspecified portion of aorta (HCC) Current Assessment & Plan 32y/o male with uncontrolled HTN who presented to an OSH ER with acute onset shortness of breath, chest pain and back pain. 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 He was transferred to [facility] for further evaluation and treatment. Here, he was seen by vascular surgery and admitted to the CTICU for impulse control. He had recurrent worsening pain and a repeat CTA this morning. This showed ???interval cranial propagation of a type B thoracic aortic dissection which now extends from approximately zone 3 to theleft common iliac artery; no change in aortic caliber; this dissection may originate in the midthoracic aorta, or fenestration is present at the level of T4; increasing fat stranding about the aorticarch and great vessels, likely reactive in the setting of dissection propagation, no extraluminal contrast present to suggest aortic rupture?? , for which CTS was consulted. CTA reviewed with Daniel Balderas, and Mesha. All feel these findings not to be telephone service representative of a type a dissection, therefore no urgent cardiac surgery is recommended. However, he is continuing to have significant pain despite BP control and pain medications, in addition to the propagationof the dissection. Recommend reaching back out to vascular surgery to consider a vascular intervention. I have called the on-call vascular fellow and left a voicemail. Echo ordered stat. This showed LVEF of 41%, dilated atria, dilated IVC, normal aortic root size, nopericardial effusion. As above, recommend following up with vascular surgery. Please get stat chest abdomen pelvis CTA if any clinical or neurological changes. Continue impulse control. Consider cardiology consult in the setting of difficult to control, longstanding hypertension and findings of HFrEF with LVEF of 41%. Relevant Orders Critical Care (Completed) Central Line (Completed) Intubation (Completed) Insert arterial line (Completed) Dissection of thoracoabdominal aorta (CMS/HCC) (HCC) Relevant Orders CV Hybrid Room (Default Orderable) (Completed) Insert arterial line (Completed) Critical Care (Completed) Critical Care (Completed) 32 yo M who presented with Type B aortic dissection with worsening pain, now s/p TEVAR and L subclavian artery stent. Now with concern for lumbar spinal ischemia. He has had improving lower extremitystrength after MAP augmentation and lumbar drain placement. - Continue q1h lower extremity neurovascular checks - Goal MAP > 100 - Hgb > 10, Plt > 100 - f/u cardiology (Dr Abarca) consult - lumbar drain to remain for five days total, can clamp today Flex Parsons MD, MSc [phone] For patients or family members viewing this note through [employer] programs: This note was written as a [...] care. Cosigned by Faustino Herrera MD at 05/09/2023 3:51 PM ELECTRO OPTICS ENGINEER TRO OPTICS ENGINEER TRO OPTICS ENGINEER Associated attestation - Faustino Herrera MD - 05/09/2023 3:51 PM ELECTRO OPTICS ENGINEER I have seen and examined the patient on 05/09/23. I agree with the findings and plan of care as documented in the resident's/fellow's note.. * Dustin Souza, DO - 05/09/2023 1:[address] ICU Daily Progress Shifts: MD Shift Options: CTI Blue 3 PM Subjective Patient is a 32 y.o. male admitted to the hospital on 05/01/2023 4:58 AM with/following: Type B Aortic dissection ICU events 05/02: TEVAR 05/03: R IJ CVC 05/05: c/f spinal cord ischemia, lumbar drain placed Overnight events: 05/08 AM - gabapentin 300 TID - d/c ketamine gtt, precedex gtt - stagger pain med times - FBG -1 to -2 L - lasix 40 x2 - LED for fevers - Seroquel nightly, haldol prn, midaz prn 05/08 pm - pressures highly variable, 500 albumin - propranolol IV x3 - lido gtt to 1 (lvl 4.6) Objective Medications: Scheduled Meds:acetaminophen, 1,000 mg, oral, Q6H SUSAN aspirin, 81 mg, oral, Daily furosemide, 40 mg, intravenous, BID DIURETIC gabapentin, 300 mg, oral, TID [Held by Provider] heparin, 5,000 Units, subcutaneous, Q8H SUSAN meropenem, 1,000 mg, intravenous, Q8H SUSAN methocarbamoL, 1,000 mg, oral, TID pantoprazole DR, 40 mg, oral, Daily polyethylene glycol, 17 g, oral, Daily potassium chloride, 40 mEq, intravenous, Daily potassium chloride, 40 mEq, intravenous, Once propranoloL, 1 mg, intravenous, Once propranoloL, 1 mg, intravenous, Once QUEtiapine, 100 mg, oral, Nightly sodium chloride, 2 spray, each nostril, Q2H while awake sodium chloride 0.9%, 0.5-20 mL, intra-catheter, Q8H SUSAN Continuous Infusions:clevidipine, 0-32 mg/hr, Last Rate: 14 mg/hr (05/09/23 0148) dexmedeTOMIDine, 0-1.5 mcg/kg/hr, Last Rate: Stopped (05/08/23 182) Lactated Ringer's, 10 mL/hr, Last Rate: 10 mL/hr (05/09/23 010) lidocaine, 1 mg/kg/hr ([place]), Last Rate: 1 mg/kg/hr (05/09/23 0158) norepinephrine, 0-2 mcg/kg/min, Last Rate: Stopped (05/08/23 2307) sodium chloride 0.9%, 3-12 mL/hr, Last Rate: 6 mL/hr (05/09/23 0100) sodium chloride 0.9%, 3-12 mL/hr, Last Rate: 6 mL/hr (05/06/23 1000) Vitals: Temp: [37.3 ??C (99.1 ??F)-39.7 ??C (103.5 ??F)] 38.8 ??C (101.8 ??F) Pulse: [70-129] 124 Resp: [8-43] 20 SpO2: [93 %-100 %] 95 % Arterial Line BP: (111-261)/(44-106) 200/66 FiO2 (%): [30 %-50 %] 30 % Fluid balance: I/O this shift: In: 1304.6 [P.O.:200; I.V.:334.6; IV Piggyback:770] Out: 933 [Urine:895] Intake/Output Summary (Last 24 hours) at 05/09/2023 0201 Last data filed at 05/09/2023 0111 Gross per 24 hour Intake 3521.09 ml Output 5377 ml Net -1855.91 ml Ventilator settings: FiO2 (%): 30 % (05/09 0000) Hemodynamic parameters: PAP: -- CVP: 5 mmHg (05/09 148) PCWP: -- CO: -- CI: -- SVO2: -- Pacemaker Overdrive Pacing: -- Cardiac Rhythm: Sinus tachycardia (05/09 148) Pacer Mode: -- Physical exam: Physical Exam: Neuro: AOx4, PERRL Cardiac: RR, S1/S2, periphery warm, pulses palpable distally Resp: CTAB GI: abdomen round, soft, normal bowel sounds : hutton w/ clear yellow urine Skin: pink, warm, dry, midline sternotomy incision open to air, C/D/I MSK: UE strength intact b/l, LLE strength improving, 3/5 strength throughout LLE, 4/5 strength in RLE. LTDA: RIJ Quad lumen, R radial a-line, PIV x3, Hutton Laboratory data: Recent Labs Lab Units 05/09/233405/08/23192405/08/2310705/07/23 1557 05/07/2334 WBC K/cumm 14.9* -- 14.2* -- 13.6* HEMOGLOBIN, POC g/dL -- 11.2* -- < > -- HEMOGLOBIN g/dL 10.1* -- 9.9* -- 10.0* HEMATOCRIT % 30.1* -- 29.9* -- 29.5* HEMATOCRIT POC % -- 34.0* -- < > -- PLATELETS K/cumm 274 -- 298 -- 244 < > = values in this interval not displayed. Recent Labs Lab Units 05/09/233405/08/2310705/07/2334 SODIUM mmol/L 134* 134* 140 POTASSIUM PLASMA mmol/L See Comment 4.9 3.8 CHLORIDE mmol/L 104 104 97 CO2 mmol/L 20* 19* 33* BUN SERUM mg/dL 17 18 20 CREATININE mg/dL 0.86 1.04 0.99 CALCIUM mg/dL 8.5 8.8 8.7 Recent Labs Lab Units 05/09/233405/08/2310705/07/23 1037 PROTIME (PT) sec 14.3* 14.2* 14.6* INR 1.25* 1.25* 1.28* APTT sec 33 35 35 Recent Labs Lab Units 05/09/233505/08/23192405/08/23 0802 05/08/23107 PH ART 7.39 7.44 7.36 7.37 PCO2 ART mmHg 29* -- 34* 32* PO2 ART mmHg 108 -- 89 151* PO2 ARTERIAL POC mmHg -- 83 -- -- BASE EXC ART mmol/L -6 -- -6 -6 Review of the laboratory data shows: total spine MRI 05/07 w/ dorsal hematoma and assoc displacement of cauda equina nerve roots, no evidence of ischemia Impression and Plan: Active problems/Diagnoses and Plans: #Acute postoperative pain #Agitation - tylenol susan, prn oxy/HM for pain - prn haldol, versed for anxiety - lido gtt to 1, lvl 4.6 #Acute type B aortic dissection #C/f Spinal Cord Ischemia #Hypertension CT showed extension of the type B thoracic aortic aneurysm, terminates just above the bifurcation, with origins the left renal artery and celiac artery arising off the false lumen. 05/05 upon extubation pt LE exam w/ LLE ankle flexion only, RLE w/ antigravity knee flexion, c/f spinal cord ischemia - OR 05/02 for TEVAR - Vascular surgery following. -recs: Hgb >10, MAP >100, SBP <180 - Lumbar drain placed 05/05 w/ NSGY, potential clamp trial 05/09 - clevidipine gtt (tachyphylaxis w/ esmolol) vs levo gtt to meet map goals - q1h NV checks - total spine MRI 05/07 w/ dorsal hematoma and assoc displacement of cauda equina nerve roots, no evidence of ischemia - Neurology c/s following 05/07, appreciate recs #Respiratory insufficiency Expected postoperatively. History of desat and wheezing, after administration of sugammadex and zofran in the OR prior to attempt to extubate. Required albuterol and epi pushes. BP stable throughout event. Lungs clear on arrival. Episode of desat resolved with recruitment breaths. - Reintubated 05/07 for anesthesia, extubated after successful RSBI - CXR w improving volume overload - Currently on optiflow, weaning to SpO2 >92% #Obstructive sleep apnea - consider NPPV nightly once extubated #Epistaxis Significant nose bleed in the OR requiring intra-op ENT c/s. DL performed, no other sources of bleeding visualized. ACT post protamine 149. - ENT following - ocean spray tid - no other s/s bleeding #Nausea -prn ondansetron, compazine #Acute blood loss anemia #Thrombocytopenia - Daily CBC #Fever - cont APAP q6h susan - TA 05/05 growing Haemophilus Inf - UA, BCx x2 - ngtd - susana(05/04 - 05/10), linezolid (05/04-05/06) - WBC 14.9, continue to monitor #Hypertriglyceridemia - TG 895 05/04 on prop gtt - TG 179 on 05/05 - f/u in am, as pt is on clevidipine gtt ICU Standards of Care: Diet: reg diet DVT prophylaxis: SCDs PUD prophylaxis: PPI Dispo: ICU Code status: Full code TDLA: R IJ Quad lumen, PIVx3, R radial a-line, Hutton Dustin Souza DO PGY-3 Anesthesiology Cosigned by Dalton Locke MD at 05/12/2023 3:17 PM ELECTRO OPTICS ENGINEER TRO OPTICS ENGINEER TRO OPTICS ENGINEER Associated attestation - Dalton Locke MD - 05/12/2023 3:17 PM ELECTRO OPTICS ENGINEER Attending Documentation: I have seen and examined this critically ill patient on the day of service. I have reviewed and confirmed the history, physical exam, laboratory and radiologic data with the house staff as documentedin the ICU Resident note. I have reviewed and discussed my treatment plan with the ICU team and other medical/sap security consultant staff, making frequent assessments and decisions regarding this patient's complex medical care. Critical care was necessary to treat or prevent imminent or life-threatening deterioration of the following conditions: Active problems: Aortic dissection s/p stenting Concern for spinal cord ischemia vs epidural hematoma Acute hypoxic respiratory failure Fluid Overload Attending Impression / Plans: No acute events overnight and his exam remains consistently improved. Will plan to clamp his lumbardrain today and assess his exam. If it remains stable, will pull tomorrow. Fevers are persistent and concerning. Will do infectious workup today. Continue to augment blood pressure for spinal cord perfusion. Maintain MAP > 100, but SBP < 180. Requires norepinephrine when asleep, but clevidipine while awake and agitated. Clamping lumbar drain today, will pull tomorrow if exam remains stable. Q1h neurovascular checks. Discontinued dexmedetomidine overnight given concerns for drug fever. Discontinued midazolam push and ketamine pushes given concerns for delirium. Increasing nighttime quetiapine dose and adding daytime dose, continue PRN haloperidol pushes. Continue diuresis. Planning for furosemide 40mg BID today. FBG -2 liters.7 day course of meropenem for H flu on 05/05 pneumonia PCR Holding DVT ppx with lumbar drain in place given small subdural blood collection. Silverio Locke MD Seasonal Recruiter Department of Anesthesiology * Franci Marin, PT - 05/08/2023 2:21 PM CST Physical Therapy 05/08/23 1421 General PT Missed Visit Reason Bedrest TRO OPTICS ENGINEER * Timmy Rosales - 05/08/2023 1:50 PM CST Fr Timmy Rosales [phone] 05/08/23 1300 Time Spent Start Time 1320 Stop Time 1330 Time Calculation (min) 10 min Patient Spiritual Assessment Spirituality Assessed Yes Rastafarian Affiliation Mu-Ism Active in Synagogue Yes Spiritual Needs Communion;Prayer Clinical Encounter Type Visited With Patient and family together Response Type Continuing visit Routine Visit Follow-up Continue Visiting Yes Reason for visit Sacramental;Support Sacramental Encounters Communion Patient wants communion Communion Given Indicator Yes Outcomes and Progress Aligning care with patient's values Achieved Preserve dignity and respect Achieved Demonstrating care and respect Achieved Interventions Interventions Active listening;Offer spiritual/alevism support;Prayer (Benediction) TRO OPTICS ENGINEER * Flex Parsons MD - 05/08/2023 6:06 AM CST Vascular Surgery Daily Progress Patient Name/MRN: Eriberto Chau [id number] Treatment Team: Vascular Surgery- Pager: [phone] Attending: Faustino Herrera MD Today's Date: 05/08/2023 Room/Bed: [id number] Admit Date: 05/01/2023 Code Status: Full Code Subjective Chief complaint: Type B aortic dissection Events During This Hospitalization: 05/02: TEVAR, L subclavian stent placement Events Over Last 24 Hours: - lower extremity strength continues to imrpove - complains of lower back pain, lumbar drain output clearing up - WBC stable at 14 Objective Vitals: 24hr Min/Max: Temp Min: 36.9 ??C (98.4 ??F) Max: 38.8 ??C (101.8 ??F) Pulse Min: 70 Max: 88 BP Min: 122/78 Max: 156/81 Resp Min: 7 Max: 28 SpO2 Min: 88 % Max: 100 % Most Recent : Vitals: 05/08/23 0535 BP: Pulse: 72 Resp: 19 Temp: 37.8 ??C (100 ??F) SpO2: 98% I/O last 2 completed shifts: In: 2664.7 [P.O.:1280; I.V.:1084.7; IV Piggyback:300] Out: 4800 [Urine:4525] I/O this shift: In: 882.9 [P.O.:240; I.V.:542.9; IV Piggyback:100] Out: 1290 [Urine:970; Stool:250] Physical Exam: General: awake and alert Neuro: BUE: 4-5/5 strength throughout, sensation intact; RLE: 4/5 ankle flexion, 4/5 knee flexion, 4/5 hip flexion; LLE: 3-4/5 throughout; sensation intact bilatereally Cardiac: regular rate and rhythm Pulses: 2+ and symmetric Palpable DP bilaterally, palpable L radial Lungs: NLB on 10L Abdomen: normal findings: soft, non-tender Lab/Radiology/Diagnostic Review: Laboratory review: Lab results in the last 12 hours: Recent Results (from the past 12 hour(s)) Troponin I high-sensitivity series (baseline, 2hr, 4hr, 6hr) Collection Time: 05/07/23 6:15 PM Result Value Ref Range Trop I hs 29 <=35 ng/L Troponin I high-sensitivity 2-hour Collection Time: 05/07/23 8:36 PM Result Value Ref Range Trop I hs 27 <=35 ng/L Trop I hs delta -2 ng/L Trop I hs interp Insignificant POC Blood Gas and Chemistries, Arterial - Collection Time: 05/07/23 8:40 PM Result Value Ref Range pH, Art POC 7.34 (L) 7.35 - 7.45 pCO2, Art POC 38 35 - 45 mmHg pO2, Art POC 79 (L) 83 - 108 mmHg Na, POC 134 (L) 135 - 145 mmol/L K POC 4.1 3.3 - 4.9 mmol/L Cl, POC 104 97 - 110 mmol/L Ionized Ca, POC 4.92 4.50 - 5.10 mg/dL Glucose, POC 118 70 - 199 mg/dL Lactate, POC 0.6 (L) 0.7 - 2.2 mmol/L SO2 (natalia) arterial 96 (H) 90 - 95 % Base excess, POC -4.8 mmol/L HCO3, Art POC 20 20 - 30 mmol/L Hct, POC 36.0 (L) 41.4 - 51.6 % O2 Sat, Art POC (Calc) 95 % Total Hb, POC 11.9 (L) 13.8 - 17.2 g/dL CBC without differential Collection Time: 05/08/23 1:08 AM Result Value Ref Range WBC 14.2 (H) 3.8 - 9.9 K/cumm Hgb 9.9 (L) 13.0 - 17.5 g/dL Hct 29.9 (L) 38.9 - 50.3 % Plt 298 150 - 400 K/cumm MPV 9.6 9.1 - 12.3 fL RBC 3.29 (L) 4.30 - 5.80 M/cumm MCV 90.9 81.3 - 96.4 fL MCH 30.1 27.1 - 33.3 pg MCHC 33.1 32.3 - 35.7 g/dL RDW CV 13.3 11.1 - 14.9 % RDW SD 45.0 35.7 - 48.1 fL NRBC abs 0.00 0.00 - 0.01 K/cumm Basic metabolic panel Collection Time: 05/08/23 1:08 AM Result Value Ref Range Sodium 134 (L) 135 - 145 mmol/L Potassium, pl 4.9 3.3 - 4.9 mmol/L Chloride 104 97 - 110 mmol/L CO2 19 (L) 22 - 32 mmol/L Anion gap 11 2 - 15 mmol/L BUN 18 6 - 25 mg/dL Creatinine 1.04 0.80 - 1.30 mg/dL Glucose 114 70 - 199 mg/dL Calcium 8.8 8.5 - 10.3 mg/dL Magnesium Collection Time: 05/08/23 1:08 AM Result Value Ref Range Magnesium 2.6 (H) 1.4 - 2.5 mg/dL Phosphorus Collection Time: 05/08/23 1:08 AM Result Value Ref Range Phosphorus, pl 3.6 2.3 - 4.5 mg/dL Protime-INR Collection Time: 05/08/23 1:08 AM Result Value Ref Range PT 14.2 (H) 10.3 - 13.7 sec INR 1.25 (H) 0.90 - 1.20 aPTT Collection Time: 05/08/23 1:08 AM Result Value Ref Range aPTT 35 28 - 38 sec Potassium, whole blood Collection Time: 05/08/23 1:08 AM Result Value Ref Range Potassium, bld 4.8 3.3 - 4.9 mmol/L Blood gas, arterial Collection Time: 05/08/23 1:08 AM Result Value Ref Range pH, Art 7.37 7.35 - 7.45 PCO2, Arterial 32 (L) 35 - 45 mmHg PO2, Arterial 151 (H) 83 - 108 mmHg HCO3 Art (Calculated) 19 (L) 20 - 30 mmol/L BE, art -6 mmol/L O2 Sat Art (Measured) 99 (H) 90 - 95 % eGFR Collection Time: 05/08/23 1:08 AM Result Value Ref Range eGFR >90 >=60 mL/min/1.73 m2 Assessment/Plan Principal Problem: Dissection of aorta, unspecified portion of aorta (HCC) Active Problems: Dissection of thoracoabdominal aorta (CMS/HCC) (HCC) Problem List Cardiac and Vasculature * (Principal) Dissection of aorta, unspecified portion of aorta (HCC) Current Assessment & Plan 32y/o male with uncontrolled HTN who presented to an OSH ER with acute onset shortness of breath, chest pain and back pain. 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 He was transferred to [facility] for further evaluation and treatment. Here, he was seen by vascular surgery and admitted to the CTICU for impulse control. He had recurrent worsening pain and a repeat CTA this morning. This showed ???interval cranial propagation of a type B thoracic aortic dissection which now extends from approximately zone 3 to theleft common iliac artery; no change in aortic caliber; this dissection may originate in the midthoracic aorta, or fenestration is present at the level of T4; increasing fat stranding about the aorticarch and great vessels, likely reactive in the setting of dissection propagation, no extraluminal contrast present to suggest aortic rupture?? , for which CTS was consulted. CTA reviewed with Daniel Balderas, and Mesha. All feel these findings not to be telephone service representative of a type a dissection, therefore no urgent cardiac surgery is recommended. However, he is continuing to have significant pain despite BP control and pain medications, in addition to the propagationof the dissection. Recommend reaching back out to vascular surgery to consider a vascular intervention. I have called the on-call vascular fellow and left a voicemail. Echo ordered stat. This showed LVEF of 41%, dilated atria, dilated IVC, normal aortic root size, nopericardial effusion. As above, recommend following up with vascular surgery. Please get stat chest abdomen pelvis CTA if any clinical or neurological changes. Continue impulse control. Consider cardiology consult in the setting of difficult to control, longstanding hypertension and findings of HFrEF with LVEF of 41%. Relevant Orders Critical Care (Completed) Central Line (Completed) Intubation (Completed) Insert arterial line (Completed) Dissection of thoracoabdominal aorta (CMS/HCC) (HCC) Relevant Orders CV Hybrid Room (Default Orderable) (Completed) Insert arterial line (Completed) 32 yo M who presented with Type B aortic dissection with worsening pain, now s/p TEVAR and L subclavian artery stent. Now with concern for lumbar spinal ischemia. He has had improving lower extremitystrength after MAP augmentation and lumbar drain placement. - Continue q1h lower extremity neurovascular checks - Goal MAP > 100 - Hgb > 10, Plt > 100 - f/u cardiology (Dr Abarca) consult - lumbar drain to remain for five days total, will consider clamping tomorrow Flex Parsons MD, MSc [phone] For patients or family members viewing this note through [employer] programs: This note was written as a [...] care. Cosigned by Faustino Herrera MD at 05/09/2023 7:14 AM ELECTRO OPTICS ENGINEER TRO OPTICS ENGINEER TRO OPTICS ENGINEER * Dustin Souza, - 05/08/2023 12:[address] ICU Daily Progress Shifts: MD Shift Options: CTI Blue 3 PM Subjective Patient is a 32 y.o. male admitted to the hospital on 05/01/2023 4:58 AM with/following: Type B Aortic dissection ICU events 05/02: TEVAR 05/03: R IJ CVC 05/05: c/f spinal cord ischemia, lumbar drain placed Overnight events: 05/07 AM - PO diamox 500 x2 - oxy 10 q4h, robaxin 1000 TID, lido gtt - a-line to R side, w/ L sided graft - ADAT - optiflow, check ABG @1900 05/07 am - new burning chest pain, non radiating - ecg w/o changes, trops neg - PPI, compazine prn - inc oxy to q3h - levo gtt for MAP goals - ketamine gtt, pain dose Objective Medications: Scheduled Meds:acetaminophen, 1,000 mg, oral, Q6H SUSAN aspirin, 81 mg, oral, Daily docusate, 100 mg, oral, BID [Held by Provider] heparin, 5,000 Units, subcutaneous, Q8H SUSAN meropenem, 1,000 mg, intravenous, Q8H SUSAN methocarbamoL, 1,000 mg, oral, TID pantoprazole DR, 40 mg, oral, Daily polyethylene glycol, 17 g, oral, Daily potassium chloride, 40 mEq, intravenous, Daily senna, 8.8 mg, oral, BID sodium chloride, 2 spray, each nostril, Q2H while awake sodium chloride 0.9%, 0.5-20 mL, intra-catheter, Q8H SUSAN Continuous Infusions:clevidipine, 0-32 mg/hr, Last Rate: Stopped (05/07/23 2305) dexmedeTOMIDine, 0-1.5 mcg/kg/hr, Last Rate: 0.9 mcg/kg/hr (05/08/2399) ketamine, 20 mg/hr, Last Rate: 20 mg/hr (05/08/2399) Lactated Ringer's, 10 mL/hr, Last Rate: Stopped (05/07/23 1100) lidocaine, 1.5 mg/kg/hr ([place]), Last Rate: 1.5 mg/kg/hr (05/08/2399) norepinephrine, 0-2 mcg/kg/min, Last Rate: 0.02 mcg/kg/min (05/08/2399) sodium chloride 0.9%, 3-12 mL/hr, Last Rate: 6 mL/hr (05/08/2399) sodium chloride 0.9%, 3-12 mL/hr, Last Rate: 6 mL/hr (05/06/23 1000) Vitals: Temp: [36.9 ??C (98.4 ??F)-38.8 ??C (101.8 ??F)] 38.5 ??C (101.3 ??F) Pulse: [75-91] 82 BP: (122-158)/(54-93) 144/88 Resp: [7-28] 25 SpO2: [88 %-100 %] 100 % Arterial Line BP: (131-208)/(57-94) 185/92 FiO2 (%): [6 %-70 %] 50 % Fluid balance: I/O this shift: In: 687.3 [P.O.:240; I.V.:347.3; IV Piggyback:100] Out: 715 [Urine:675] Intake/Output Summary (Last 24 hours) at 05/08/2023 0128 Last data filed at 05/08/2023 0100 Gross per 24 hour Intake 2763.52 ml Output 4648 ml Net -1884.48 ml Ventilator settings: FiO2 (%): 50 % (05/08 100) Hemodynamic parameters: PAP: -- CVP: 10 mmHg (05/08 100) PCWP: -- CO: -- CI: -- SVO2: -- Pacemaker Overdrive Pacing: -- Cardiac Rhythm: Normal sinus rhythm (05/08 100) Pacer Mode: -- Physical exam: Physical Exam: Neuro: AOx4, PERRL Cardiac: RR, S1/S2, periphery warm, pulses palpable distally Resp: CTAB GI: abdomen round, soft, normal bowel sounds : hutton w/ clear yellow urine Skin: pink, warm, dry, midline sternotomy incision open to air, C/D/I MSK: UE strength intact b/l, LLE strength improving, to flex/ext foot, ext hip, knee flexion, RLE strength appears intact, intact sensation to b/l LE LTDA: RIJ Quad lumen, R radial a-line, PIV x3, Hutton Laboratory data: Recent Labs Lab Units 05/07/230 05/07/23 1557 05/07/23 0035 05/06/23 0132 05/06/23 0128 05/05/23 1922 05/05/23 0012 WBC K/cumm -- -- 13.6* -- 23.8* -- 16.4* HEMOGLOBIN, POC g/dL 11.9* 10.4* -- < > -- < > -- HEMOGLOBIN g/dL -- -- 10.0* -- 10.5* -- 9.4* HEMATOCRIT % -- -- 29.5* -- 31.2* -- 27.9* HEMATOCRIT POC % 36.0* 31.0* -- < > -- < > -- PLATELETS K/cumm -- -- 244 -- 193 -- 132* < > = values in this interval not displayed. Recent Labs Lab Units 05/07/23 0035 05/05/23 0012 05/04/23 0120 SODIUM mmol/L 140 145 140 POTASSIUM PLASMA mmol/L 3.8 4.4 See Comment CHLORIDE mmol/L 97 106 109 CO2 mmol/L 33* 30 23 BUN SERUM mg/dL 20 9 9 CREATININE mg/dL 0.99 1.14 1.38* CALCIUM mg/dL 8.7 8.1* 7.3* Recent Labs Lab Units 05/07/23 1037 05/05/23 2014 05/02/23 0410 05/01/23 0519 PROTIME (PT) sec 14.6* 16.9* 14.9* 13.7 INR 1.28* 1.48* 1.31* 1.20 APTT sec 35 35 -- 34 Recent Labs Lab Units 05/08/23 0108 05/07/23 2040 05/07/23 1757 05/07/23 1557 05/07/23 1442 PH ART 7.37 7.34* 7.47* < > 7.41 PCO2 ART mmHg 32* -- 27* -- 37 PO2 ART mmHg 151* -- 154* -- 65* PO2 ARTERIAL POC mmHg -- 79* -- < > -- BASE EXC ART mmol/L -6 -- -3 -- -1 < > = values in this interval not displayed. Review of the laboratory data shows: total spine MRI 05/07 w/ dorsal hematoma and assoc displacement of cauda equina nerve roots, no evidence of ischemia Impression and Plan: Active problems/Diagnoses and Plans: #Acute postoperative pain #Agitation - precedex gtt - tylenol susan, prn oxy/HM - ketamine, pain dose at 20mg/hr - lido gtt, f/u lvl #Acute type B aortic dissection #C/f Spinal Cord Ischemia #Hypertension CT showed extension of the type B thoracic aortic aneurysm, terminates just above the bifurcation, with origins the left renal artery and celiac artery arising off the false lumen. - OR 05/02 for TEVAR - 05/05 upon extubation pt LE exam w/ LLE ankle flexion only, RLE w/ antigravity knee flexion, c/f spinal cord ischemia - Vascular surgery following. -recs: Hgb >10, MAP >100, SBP <180 - Lumbar drain placed 05/05 w/ NSGY, drain approx 15 - 20cc/hr - clevidipine gtt (tachyphylaxis w/ esmolol) - q1h NV checks - total spine MRI 05/07 w/ dorsal hematoma and assoc displacement of cauda equina nerve roots, no evidence of ischemia - Neurology c/s following 05/07, appreciate recs #Respiratory insufficiency Expected postoperatively. History of desat and wheezing, after administration of sugammadex and zofran in the OR prior to attempt to extubate. Required albuterol and epi pushes. BP stable throughout event. Lungs clear on arrival. Episode of desat resolved with recruitment breaths. - Reintubated 05/07 for anesthesia, extubated after successful RSBI - CXR w improving volume overload - Currently on optiflow, weaning to SpO2 >92% #Obstructive sleep apnea - consider NPPV nightly once extubated #Epistaxis Significant nose bleed in the OR requiring intra-op ENT c/s. DL performed, no other sources of bleeding visualized. ACT post protamine 149. - Packing in place - ENT following - Afrin BID prn, ocean spray tid - no other s/s bleeding #Nausea -prn ondansetron, compazine #Acute blood loss anemia #Thrombocytopenia - Daily CBC #Fever - cont APAP q6h susan - TA 05/05 growing Haemophilus Inf - UA, BCx x2 - ngtd - susana(05/04 - ), linezolid (05/04-05/06) - WBC 23.8, continue to monitor #Hypertriglyceridemia - resolved - TG 895 05/04 on prop gtt - TG 179 on 05/05 ICU Standards of Care: Diet: reg diet DVT prophylaxis: SCDs PUD prophylaxis: PPI Dispo: ICU Code status: Full code TDLA: R IJ Quad lumen, PIVx3, R radial a-line, Hutton Dustin Souza DO PGY-3 Anesthesiology Cosigned by Dalton Locke MD at 05/08/2023 2:08 PM ELECTRO OPTICS ENGINEER TRO OPTICS ENGINEER TRO OPTICS ENGINEER Associated attestation - Dalton Locke MD - 05/08/2023 2:08 PM ELECTRO OPTICS ENGINEER Attending Documentation: I have seen and examined this critically ill patient on the day of service. I have reviewed and confirmed the history, physical exam, laboratory and radiologic data with the house staff as documentedin the ICU Resident note. I have reviewed and discussed my treatment plan with the ICU team and other medical/sap security consultant staff, making frequent assessments and decisions regarding this patient's complex medical care. Critical care was necessary to treat or prevent imminent or life-threatening deterioration of the following conditions: Active problems: Aortic dissection s/p stenting Concern for spinal cord ischemia vs epidural hematoma Acute hypoxic respiratory failure Fluid Overload Attending Impression / Plans: No acute events overnight and Overall condition has improved over the course of the day. MRI complete spine obtained following intubation. Revealed subdural blood at the site of the lumbar drain and no compression otherwise, as well as no evidence for spinal cord ischemia. Discussed with neurosurgery attending, and I agree thatgiven his improving exam there is no indication for surgical intervention. Lumbar drain briefly had high output in the morning for an hour but this tapered off over the course of the day to normal levels. Mental status is much improved, he's now AAOx4 and seems to be appropriately processing the situation. Pain control remains an issue. Continue to augment blood pressure for spinal cord perfusion. Maintain MAP > 100, but SBP < 180. Requires norepinephrine when asleep, but clevidipine while awake and agitated. Continue q1h neurovascular checks. Exam improved following lumbar drain placement and has remained stable through the weekend. CSF drainage from lumbar drain 10cc/hr or less over last 24 hours. Will discuss timing of clamp trial with vascular surgery attending tomorrow Dexmedetomidine infusion for agitation while laying flat in bed with lumbar drain. Was placed on ketamine infusion overnight, but now hallucinating that he's in a blue walled basement. Discontinuing ketamine infusion, changing to low dose pushes q4h. Re-timing analgesics for optimal pain relief. ABG w/ improved pH following acetazolamide x2 yesterday. Fluid balance -2.5 liters over last 24. Will change back to diuresis with furosemide today and again aim for -1 to -2L net over the next 24 hours. 7 day course of meropenem for H flu on 05/05 pneumonia PCR Holding DVT ppx with lumbar drain in place given small subdural blood collection. Silverio Locke MD Seasonal Recruiter Department of Anesthesiology * Tamiko Miles MD PhD - 05/07/2023 8:54 AM CST Patient seen on 05/07/2023 during rounds. Plan for care was discussed and documented by the team based on discussion between team and primary attending. I am available for any urgent or emergent issues today. Tamiko Miles MD, PhD 05/07/2023 8:54 AM TRO OPTICS ENGINEER * Flex Parsons MD - 05/07/2023 8:35 AM CST Vascular Surgery Daily Progress Patient Name/MRN: Eriberto Chau [id number] Treatment Team: Vascular Surgery- Pager: [phone] Attending: Faustino Herrera MD Today's Date: 05/07/2023 Room/Bed: [id number] Admit Date: 05/01/2023 Code Status: Full Code Subjective Chief complaint: Type B aortic dissection Events During This Hospitalization: 05/02: TEVAR, L subclavian stent placement Events Over Last 24 Hours: - lower extremity strength improving - MRI overnight w/ possible SDH vs SAH T11-S1, no signs of infarct - WBC 14 from 23, Tmax 38.5 Objective Vitals: 24hr Min/Max: Temp Min: 37.1 ??C (98.8 ??F) Max: 38.5 ??C (101.3 ??F) Pulse Min: 76 Max: 98 BP Min: 104/68 Max: 169/77 Resp Min: 6 Max: 24 SpO2 Min: 93 % Max: 100 % Most Recent : Vitals: 05/07/23 0700 BP: 140/88 Pulse: 84 Resp: 11 Temp: 37.1 ??C (98.8 ??F) SpO2: 98% I/O last 2 completed shifts: In: 2446.6 [P.O.:860; I.V.:1136.6; IV Piggyback:450] Out: 3916 [Urine:3625] I/O this shift: In: 29.4 [I.V.:29.4] Out: 146 [Urine:140] Physical Exam: General: awake and alert Neuro: BUE: 4-5/5 strength throughout, sensation intact; RLE: 4/5 ankle flexion, 4/5 knee flexion, 4/5 hip flexion; LLE: 3/5 throughout; sensation intact bilatereally Cardiac: regular rate and rhythm Pulses: 2+ and symmetric Palpable DP bilaterally, palpable L radial Lungs: NLB on 10L Abdomen: normal findings: soft, non-tender Lab/Radiology/Diagnostic Review: Laboratory review: Lab results in the last 12 hours: Recent Results (from the past 12 hour(s)) Lactate Collection Time: 05/07/23 12:35 AM Result Value Ref Range Lactate 1.2 0.7 - 2.0 mmol/L CBC without differential Collection Time: 05/07/23 12:35 AM Result Value Ref Range WBC 13.6 (H) 3.8 - 9.9 K/cumm Hgb 10.0 (L) 13.0 - 17.5 g/dL Hct 29.5 (L) 38.9 - 50.3 % Plt 244 150 - 400 K/cumm MPV 10.1 9.1 - 12.3 fL RBC 3.36 (L) 4.30 - 5.80 M/cumm MCV 87.8 81.3 - 96.4 fL MCH 29.8 27.1 - 33.3 pg MCHC 33.9 32.3 - 35.7 g/dL RDW CV 13.6 11.1 - 14.9 % RDW SD 43.8 35.7 - 48.1 fL NRBC abs 0.02 (H) 0.00 - 0.01 K/cumm Basic metabolic panel Collection Time: 05/07/23 12:35 AM Result Value Ref Range Sodium 140 135 - 145 mmol/L Potassium, pl 3.8 3.3 - 4.9 mmol/L Chloride 97 97 - 110 mmol/L CO2 33 (H) 22 - 32 mmol/L Anion gap 10 2 - 15 mmol/L BUN 20 6 - 25 mg/dL Creatinine 0.99 0.80 - 1.30 mg/dL Glucose 103 70 - 199 mg/dL Calcium 8.7 8.5 - 10.3 mg/dL Magnesium Collection Time: 05/07/23 12:35 AM Result Value Ref Range Magnesium 2.3 1.4 - 2.5 mg/dL Phosphorus Collection Time: 05/07/23 12:35 AM Result Value Ref Range Phosphorus, pl 2.9 2.3 - 4.5 mg/dL Triglycerides Collection Time: 05/07/23 12:35 AM Result Value Ref Range Triglycerides 346 (H) <=149 mg/dL Type and screen Collection Time: 05/07/23 12:35 AM Result Value Ref Range Ellen, indirect Negative ABO Rh A Positive Potassium, whole blood Collection Time: 05/07/23 12:35 AM Result Value Ref Range Potassium, bld 3.7 3.3 - 4.9 mmol/L Blood gas, arterial Collection Time: 05/07/23 12:35 AM Result Value Ref Range pH, Art 7.52 (H) 7.35 - 7.45 PCO2, Arterial 40 35 - 45 mmHg PO2, Arterial 117 (H) 83 - 108 mmHg HCO3 Art (Calculated) 34 (H) 20 - 30 mmol/L BE, art 9 mmol/L O2 Sat Art (Measured) 99 (H) 90 - 95 % eGFR Collection Time: 05/07/23 12:35 AM Result Value Ref Range eGFR >90 >=60 mL/min/1.73 m2 Potassium, whole blood Collection Time: 05/07/23 3:58 AM Result Value Ref Range Potassium, bld 4.2 3.3 - 4.9 mmol/L Potassium, whole blood Collection Time: 05/07/23 5:56 AM Result Value Ref Range Potassium, bld 3.9 3.3 - 4.9 mmol/L Blood gas, arterial Collection Time: 05/07/23 6:13 AM Result Value Ref Range pH, Art 7.48 (H) 7.35 - 7.45 PCO2, Arterial 38 35 - 45 mmHg PO2, Arterial 162 (H) 83 - 108 mmHg HCO3 Art (Calculated) 29 20 - 30 mmol/L BE, art 5 mmol/L O2 Sat Art (Measured) 100 (H) 90 - 95 % Assessment/Plan Principal Problem: Dissection of aorta, unspecified portion of aorta (HCC) Active Problems: Dissection of thoracoabdominal aorta (CMS/HCC) (HCC) Problem List Cardiac and Vasculature * (Principal) Dissection of aorta, unspecified portion of aorta (HCC) Current Assessment & Plan 32y/o male with uncontrolled HTN who presented to an OSH ER with acute onset shortness of breath, chest pain and back pain. 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 He was transferred to [facility] for further evaluation and treatment. Here, he was seen by vascular surgery and admitted to the CTICU for impulse control. He had recurrent worsening pain and a repeat CTA this morning. This showed ???interval cranial propagation of a type B thoracic aortic dissection which now extends from approximately zone 3 to theleft common iliac artery; no change in aortic caliber; this dissection may originate in the midthoracic aorta, or fenestration is present at the level of T4; increasing fat stranding about the aorticarch and great vessels, likely reactive in the setting of dissection propagation, no extraluminal contrast present to suggest aortic rupture?? , for which CTS was consulted. CTA reviewed with Daniel Balderas, and Mesha. All feel these findings not to be telephone service representative of a type a dissection, therefore no urgent cardiac surgery is recommended. However, he is continuing to have significant pain despite BP control and pain medications, in addition to the propagationof the dissection. Recommend reaching back out to vascular surgery to consider a vascular intervention. I have called the on-call vascular fellow and left a voicemail. Echo ordered stat. This showed LVEF of 41%, dilated atria, dilated IVC, normal aortic root size, nopericardial effusion. As above, recommend following up with vascular surgery. Please get stat chest abdomen pelvis CTA if any clinical or neurological changes. Continue impulse control. Consider cardiology consult in the setting of difficult to control, longstanding hypertension and findings of HFrEF with LVEF of 41%. Relevant Orders Critical Care (Completed) Central Line (Completed) Intubation (Completed) Insert arterial line (Completed) Dissection of thoracoabdominal aorta (CMS/HCC) (HCC) Relevant Orders CV Hybrid Room (Default Orderable) (Completed) 32 yo M who presented with Type B aortic dissection with worsening pain, now s/p TEVAR and L subclavian artery stent. Now with concern for lumbar spinal ischemia - Continue q1h lower extremity neurovascular checks - Goal MAP > 100 - Hgb > 10, Plt > 100 - f/u cardiology (Dr Abarca) consult Flex Parsons MD, MSc [phone] For patients or family members viewing this note through [employer] programs: This note was written as a [...] involved in your care. Cosigned by Faustino eHrrera MD at 05/09/2023 7:14 AM ELECTRO OPTICS ENGINEER TRO OPTICS ENGINEER TRO OPTICS ENGINEER * Phylicia Arshad MD - 05/07/2023 7:40 AM CST Neurosurgery Daily Progress Note 05/07/2023 Hospital Course 05/05 Consulted for LD placement. LD placed. 05/06 Neurology consulted, rec stroke workup, ASA 81. MRI done- Subdural hematoma largest at L4 withnerve root displacement but not severe mass effect, linear cord signal abnormality at T4-5. Extubated after MRI. Subjective Complaining of headache and back pain Objective Physical Exam Alert, opens eyes spontaneously, regards, follows all commands, orientedx3 Speech is fluent. Answers questions appropriately. EOMI, face symmetric Upper Extremity D B T HG HI L 5/5 5/5 5/5 5/5 5/5 R 5/5 5/5 5/5 5/5 5/5 Lower Extremity IP Q H TA Gn L 3/5 3/5 3/5 3/5 3/5* R 4+/5 /5 4/5 4/5 4/5 * LLE exam pain-limited Vitals 24hr min/max vitals: Temp Min: 37.1 ??C (98.8 ??F) Max: 38.6 ??C (101.5 ??F) Pulse Min: 77 Max: 91 Resp Min: 6 Max: 24 SpO2 Min: 88 % Max: 100 % MAP (mmHg) Min: 75 Max: 112 Intake and Output I/O last 2 completed shifts: In: 2446.6 [P.O.:860; I.V.:1136.6; IV Piggyback:450] Out: 3916 [Urine:3625] Medications Scheduled Scheduled Medications Medication Dose Route Frequency acetaminophen (TYLENOL) tablet 1,000 mg 1,000 mg oral Q6H SUSAN acetaZOLAMIDE (DIAMOX) tablet 500 mg 500 mg oral Once aspirin chewable tablet 81 mg 81 mg oral Daily docusate (COLACE) 10 mg/mL oral liquid 100 mg 100 mg oral BID [Held by Provider] heparin 5,000 unit/mL injection 5,000 Units 5,000 Units subcutaneous Q8H SUSAN meropenem (MERREM) 1,000 mg/110 mL in sodium chloride 0.9% (premix) 1,000 mg 1,000 mg intravenous Q8H SUSAN methocarbamoL (ROBAXIN) tablet 1,000 mg 1,000 mg oral TID polyethylene glycol (MIRALAX) packet 17 g 17 g oral Daily potassium chloride 40 mEq/100 mL in sterile water (premix) 40 mEq 40 mEq intravenous Daily senna 1.76 mg/mL syrup 8.8 mg 8.8 mg oral BID sodium chloride (OCEAN) 0.65 % nasal spray 2 spray 2 spray each nostril Q2H while awake sodium chloride 0.9% flush 0.5-20 mL 0.5-20 mL intra-catheter Q8H SUSAN As needed PRN Medications Medication Dose Route Frequency Last Admin albuterol HFA (PROVENTIL HFA,VENTOLIN HFA,PROAIR HFA) 90 mcg/actuation inhaler 2 puff 2 puff inhalation Q4H PRN (RT) Carrier Fluids for Secondary Infusion - 0.9% Sodium Chloride 30 mL intravenous PRN 30 mL at 05/06/23 0827 Carrier Fluids for Secondary Infusion - 0.9% Sodium Chloride 30 mL intravenous PRN 30 mL at 05/03/23 0855 HYDROmorphone (DILAUDID) injection 0.5 mg 0.5 mg intravenous Q2H PRN 0.5 mg at 05/07/23 1708 metoprolol (LOPRESSOR) injection 10 mg 10 mg intravenous Q6H PRN 10 mg at 05/05/23 1709 ondansetron (ZOFRAN) injection 4 mg 4 mg intravenous Q6H PRN 4 mg at 05/07/23 1540 oxyCODONE (ROXICODONE) tablet 10 mg 10 mg oral Q4H PRN 10 mg at 05/07/23 1456 potassium chloride 40 mEq/100 mL in sterile water (premix) 40 mEq 40 mEq intravenous BID PRN Rate Verify at 05/07/23 0100 sodium chloride 0.9% flush 0.5-20 mL 0.5-20 mL intra-catheter PRN Labs Lab Results Component Value Date SODIUM 140 05/07/2023 SODIUM 145 05/05/2023 SODIUM 140 05/04/2023 Lab Results Component Value Date GLUCOSE 116 05/07/2023 CALCIUM 8.7 05/07/2023 POTASSIUM 3.8 05/07/2023 CO2 33 (H) 05/07/2023 CHLORIDE 97 05/07/2023 BUNSER 20 05/07/2023 CREATININE 0.99 05/07/2023 Lab Results Component Value Date WBC 13.6 (H) 05/07/2023 WBC 23.8 (H) 05/06/2023 WBC 16.4 (H) 05/05/2023 HGB 10.4 (L) 05/07/2023 HGB 10.0 (L) 05/07/2023 HGB 10.7 (L) 05/06/2023 HCT 31.0 (L) 05/07/2023 HCT 29.5 (L) 05/07/2023 HCT 32.0 (L) 05/06/2023 LABPLAT 244 05/07/2023 LABPLAT 193 05/06/2023 LABPLAT 132 (L) 05/05/2023 Lab Results Component Value Date INR 1.28 (H) 05/07/2023 INR 1.48 (H) 05/05/2023 INR 1.31 (H) 05/02/2023 PT 14.6 (H) 05/07/2023 PT 16.9 (H) 05/05/2023 PT 14.9 (H) 05/02/2023 APTT 35 05/07/2023 APTT 35 05/05/2023 APTT 34 05/01/2023 No components found for: TROPONIN PT/OT Evaluation Assessment/Plan Hospital Day: 7 Eriberto Chau is a 32 y.o. year old male who required lumbar drain placement due to concern for spinal cord infarction following TEVAR for aortic dissection. Plan Lumbar drain management per CT-ICU - currently draining 10ml every 2 hours. Responsible Team Jeancarlos (Perez) Vic (Chief) For any questions or concerns, please contact the nurse practitioner signed in to the chart. If youare unable to reach them, you may contact the residents as listed. If it is after 6pm or you are unable to reach the SECTION CUTTER or resident team, please page the Neurosurgery Call Pager at [phone]. Cosigned by Jaden Smith MD at 05/07/2023 10:05 PM ELECTRO OPTICS ENGINEER TRO OPTICS ENGINEER TRO OPTICS ENGINEER TRO OPTICS ENGINEER Associated attestation - Jaden Smith MD - 05/07/2023 10:05 PM ELECTRO OPTICS ENGINEER I have seen and examined the patient on 05/07/23. I agree with the findings and plan of care as documented in the resident's/fellow's note. MRI with subdural blood most prominent in lower lumbar region around L4 with mod-severe stenosis. Exam is improving and therefore, this is unlikely to be symptomatic. Discussed with parents that the blood would be re-absorbed over time. He has headache, nausea indicative of CSF over drainage. Advised the primary team to lower the amount of CSF drainage to avoid complications of over drainage such as subdural hematoma in the brain. They are managing the drain primarily and will therefore defer to them. * Dustin Souza, - 05/07/2023 1:[address] ICU Daily Progress Shifts: MD Shift Options: CTI Blue 3 PM Subjective Patient is a 32 y.o. male admitted to the hospital on 05/01/2023 4:58 AM with/following: Type B Aortic dissection ICU events 05/02: TEVAR 05/03: R IJ CVC 05/05: c/f spinal cord ischemia, lumbar drain placed Overnight events: 05/06 AM - SBP <180, MAPs >100 - Lumbar drain: 10-20cc/h; new dressing - Neurology c/s - CT spine w recon per NSGY --> urgent MRI o/n - dc linezolid - repeat ABG - dc'd lisinopril, dc'd metop per tube - bumex dc'd. FBG -1 to -2L, spot bumex if needed 05/06 PM - intubated/sedated for MRI - MRI w/o evidence of infarction, potential hematoma Objective Medications: Scheduled Meds:acetaminophen, 1,000 mg, oral, Q6H SUSAN aspirin, 81 mg, oral, Daily docusate, 100 mg, oral, BID [Held by Provider] heparin, 5,000 Units, subcutaneous, Q8H SUSAN lidocaine, 2 patch, transdermal, Q24H meropenem, 1,000 mg, intravenous, Q8H SUSAN phenylephrine, , , phenylephrine, , , polyethylene glycol, 17 g, oral, Daily potassium chloride, 20 mEq, intravenous, Q6H senna, 8.8 mg, oral, BID sodium chloride, 2 spray, each nostril, Q2H while awake sodium chloride 0.9%, 0.5-20 mL, intra-catheter, Q8H [facility], [facility] Continuous Infusions:clevidipine, 0-32 mg/hr, Last Rate: 3 mg/hr (05/07/2399) dexmedeTOMIDine, 0-1.5 mcg/kg/hr, Last Rate: 1 mcg/kg/hr (05/07/2399) fentaNYL, 0-400 mcg/hr, Last Rate: 50 mcg/hr (05/07/23117) Lactated Ringer's, 10 mL/hr, Last Rate: 10 mL/hr (05/07/2399) propofol, 0-100 mcg/kg/min, Last Rate: 20 mcg/kg/min (05/07/23127) sodium chloride 0.9%, 3-12 mL/hr, Last Rate: 6 mL/hr (05/07/2399) sodium chloride 0.9%, 3-12 mL/hr, Last Rate: 6 mL/hr (05/06/23 1000) Vitals: Temp: [37.3 ??C (99.1 ??F)-38 ??C (100.4 ??F)] 37.9 ??C (100.2 ??F) Pulse: [59-98] 83 BP: (104-171)/(54-97) 138/81 Resp: [6-24] 18 SpO2: [94 %-100 %] 94 % Arterial Line BP: (123-195)/(54-110) 151/77 FiO2 (%): [40 %-50 %] 40 % Fluid balance: I/O this shift: In: 588.5 [I.V.:483.9; IV Piggyback:104.6] Out: 867 [Urine:800] Intake/Output Summary (Last 24 hours) at 05/07/2023 0147 Last data filed at 05/07/2023 0100 Gross per 24 hour Intake 2341.45 ml Output 6219 ml Net -3877.55 ml Ventilator settings: Adult Vent Mode: Volume control/Assist control FiO2 (%): 40 % (05/07 27) Hemodynamic parameters: PAP: -- CVP: 17 mmHg (05/07 100) PCWP: -- CO: -- CI: -- SVO2: -- Pacemaker Overdrive Pacing: -- Cardiac Rhythm: Normal sinus rhythm (05/06 2100) Pacer Mode: -- Physical exam: Physical Exam: Neuro: Sedated, PERRL Cardiac: RR, S1/S2, periphery warm, pulses palpable distally Resp: Mechanical breath sounds GI: abdomen round, soft, normal bowel sounds : hutton w/ clear yellow urine Skin: pink, warm, dry, midline sternotomy incision open to air, C/D/I MSK: UE strength intact b/l, LLE strength improving, to flex/ext foot, ext hip, knee flexion, RLE strength appears intact, intact sensation to b/l LE LTDA: ETT, RIJ Quad lumen, R radial a-line, PIV x3, Hutton, OGT Laboratory data: Recent Labs Lab Units 05/07/23 0035 05/06/23 0132 05/06/23 0128 05/05/23 1922 05/05/23 0012 WBC K/cumm 13.6* -- 23.8* -- 16.4* HEMOGLOBIN, POC g/dL -- 10.7* -- < > -- HEMOGLOBIN g/dL 10.0* -- 10.5* -- 9.4* HEMATOCRIT % 29.5* -- 31.2* -- 27.9* HEMATOCRIT POC % -- 32.0* -- < > -- PLATELETS K/cumm 244 -- 193 -- 132* < > = values in this interval not displayed. Recent Labs Lab Units 05/07/23 0035 05/05/23 0012 05/04/23 0120 SODIUM mmol/L 140 145 140 POTASSIUM PLASMA mmol/L 3.8 4.4 See Comment CHLORIDE mmol/L 97 106 109 CO2 mmol/L 33* 30 23 BUN SERUM mg/dL 20 9 9 CREATININE mg/dL 0.99 1.14 1.38* CALCIUM mg/dL 8.7 8.1* 7.3* Recent Labs Lab Units 05/05/23201305/02/23 0410 05/01/23 0519 PROTIME (PT) sec 16.9* 14.9* 13.7 INR 1.48* 1.31* 1.20 APTT sec 35 -- 34 Recent Labs Lab Units 05/07/23 0035 05/06/23 1922 05/06/23 1635 PH ART 7.52* 7.54* 7.51* PCO2 ART mmHg 40 39 42 PO2 ART mmHg 117* 118* 72* BASE EXC ART mmol/L 9 10 9 Review of the laboratory data shows: CT BODY OUTSIDE CONSULT 05/01/2023 Impression 1. Extension of the type B thoracic aortic aneurysm, terminates just above the bifurcation, with origins the left renal artery and celiac artery arising off the false lumen. No evidence of vascular compromise. The entry tear is not definitely visualized, it may be just proximal to the diaphragmatichiatus as this is where contrast within the false lumen is most dense. 2. Pseudofeces in the small bowel, without evidence of obstruction. This is of unknown clinical significance and is of uncertain etiology. Continued attention on follow-up imaging and correlation with symptomatology is recommended. Impression and Plan: Active problems/Diagnoses and Plans: Acute postoperative pain Agitation Sedation - Sedated w/ prop gtt, fent gtt, will wean to extubate this am - precedex gtt - resume tylenol susan, prn oxy/HM when extubated Acute type B aortic dissection C/f Spinal Cord Ischemia Hypertension CT showed extension of the type B thoracic aortic aneurysm, terminates just above the bifurcation, with origins the left renal artery and celiac artery arising off the false lumen. - OR 05/02 for TEVAR - 05/05 upon extubation pt LE exam w/ LLE ankle flexion only, RLE w/ antigravity knee flexion, c/f spinal cord ischemia - Vascular surgery following. -recs: Hgb >10, MAP >100, SBP <180 - Lumbar drain placed 05/05 w/ NSGY, drain ~10cc/hr - antihtn regimen: clevidipine gtt (tachyphylaxis w/ esmolol) - q1h NV checks - total spine MRI 05/07 - Neurology c/s following 05/07, appreciate recs Respiratory insufficiency Expected postoperatively. History of desat and wheezing, after administration of sugammadex and zofran in the OR prior to attempt to extubate. Required albuterol and epi pushes. BP stable throughout event. Lungs clear on arrival. Episode of desat resolved with recruitment breaths. - Reintubated 05/07 for anesthesia for total spine MRI - Plan to wean to extubate 05/07 if pt passes RSBI - CXR w improving volume overload Obstructive sleep apnea - consider NPPV nightly once extubated Epistaxis Significant nose bleed in the OR requiring intra-op ENT c/s. DL performed, no other sources of bleeding visualized. ACT post protamine 149. - Packing in place - ENT following - Afrin BID prn, ocean spray tid - no other s/s bleeding #Acute blood loss anemia #Thrombocytopenia - Daily CBC #Fever - cont APAP q6h susan - TA 05/05 growing Haemophilus Inf - UA, BCx x2 - ngtd - susana(05/04 - ), linezolid (05/04-05/06) - WBC 23.8, continue to monitor #Hypertriglyceridemia - TG 895 05/04, paused gtt, weaning clevidipine - TG 179 on 05/05. ICU Standards of Care: Diet: NPO DVT prophylaxis: SCDs, SQH PUD prophylaxis: famotidine while intubated Dispo: ICU Code status: Full code TDLA: R IJ Quad lumen, PIVx3, R radial a-line, Hutton Dustin Souza DO PGY-3 Anesthesiology Cosigned by Dalton Locke MD at 05/08/2023 2:06 PM ELECTRO OPTICS ENGINEER TRO OPTICS ENGINEER TRO OPTICS ENGINEER Associated attestation - Dalton Locke MD - 05/08/2023 2:06 PM ELECTRO OPTICS ENGINEER Attending Documentation: I have seen and examined this critically ill patient on the day of service. I have reviewed and confirmed the history, physical exam, laboratory and radiologic data with the house staff as documentedin the ICU Resident note. I have reviewed and discussed my treatment plan with the ICU team and other medical/sap security consultant staff, making frequent assessments and decisions regarding this patient's complex medical care. Critical care was necessary to treat or prevent imminent or life-threatening deterioration of the following conditions: Active problems: Aortic dissection s/p stenting Concern for spinal cord ischemia vs epidural hematoma Acute hypoxic respiratory failure Fluid Overload Attending Impression / Plans: Overall condition has improved over the course of the day. MRI complete spine obtained following intubation. Revealed subdural blood at the site of the lumbar drain and no compression otherwise, as well as no evidence for spinal cord ischemia. Discussed with neurosurgery attending, and I agree thatgiven his improving exam there is no indication for surgical intervention. Lumbar drain briefly had high output in the morning for an hour but this tapered off over the course of the day to normal levels. Mental status is much improved, he's now AAOx4 and seems to be appropriately processing the situation. Pain control remains an issue. Continue to augment blood pressure for spinal cord perfusion. Maintain MAP > 100, but SBP < 180. Continue q1h neurovascular checks. Will follow up with vascular surgery. Dexmedetomidine infusion for agitation while laying flat in bed with lumbar drain. Continuing scheduled acetaminophen, increasing PRN oxycodone to q3h, adding TID robaxin Alkalotic on ABG this am. Continuing diuresis with acetazolamide for today. FBG -1 to -2 liters. Pneumonia PCR on 05/05 w/ H flu. Will plan for 7 day course of meropenem. Holding DVT ppx with lumbar drain in place given small subdural blood collection. Silverio Locke MD Seasonal Recruiter Department of Anesthesiology * Darren Busby, RD - 05/06/2023 9:37 AM CST NUTRITION ASSESSMENT Nutrition Status: Patient does not meet ASPEN criteria for malnutrition at this time. REASON FOR ASSESSMENT: Screened at Nutrition Risk - Ventilator Support Encounter Date: 05/06/23 9:45 AM Admission Date: 05/01/2023 LOS: 5 days HPI: Patient is a 32 y.o. male with Type B aortic Dissection, now s/p TEVAR, L Subclavian Stent Placement (05/02). 05/04: Remains intubated d/t CXR c/f volume overload bibasilar atelectasis R>L , sedated on Dex for elevated TG, and diuresing with Bumex 2 mg Q6 hrs. Plan to start TF. 05/05: Extubated to aerosol face mask, c/f spinal cord ischemia, lumbar drain placed 05/06: Remains NPO for potential Spine MRI Objective No past medical history on file. No past surgical history on file. Social History Tobacco Use Smoking status: Never Smokeless tobacco: Never Substance and Sexual Activity Drug use: Not on file Sexual activity: Not on file Alcohol Use: Not on file MEDICATION/LAB REVIEW: Scheduled Meds: acetaminophen, 1,000 mg, oral, Q6H SUSAN aspirin, 81 mg, oral, Daily bumetanide, 2 mg, intravenous, Q6H SUSAN carvediloL, 50 mg, oral, BID chlorhexidine, 15 mL, swish & spit, BID dilTIAZem, 15 mg, intravenous, Q8H docusate, 100 mg, oral, BID [Held by Provider] heparin, 5,000 Units, subcutaneous, Q8H SUSAN lidocaine, 2 patch, transdermal, Q24H lidocaine, 5 mL, subcutaneous, Once lidocaine, 10 mL, subcutaneous, Once lidocaine PF, , , lidocaine PF, 20 mL, infiltration, Once linezolid, 600 mg, intravenous, Q12H SUSAN lisinopriL, 20 mg, oral, Daily meropenem, 1,000 mg, intravenous, Q8H SUSAN metoprolol tartrate, 100 mg, oral, BID polyethylene glycol, 17 g, oral, Daily potassium chloride, 20 mEq, intravenous, Q6H potassium chloride, 40 mEq, intravenous, Once senna, 8.8 mg, oral, BID sodium chloride, 2 spray, each nostril, Q2H while awake sodium chloride 0.9%, 0.5-20 mL, intra-catheter, Q8H [facility] Continuous Infusions: clevidipine, 0-32 mg/hr, Last Rate: Stopped (05/06/23899) dexmedeTOMIDine, 0-1.5 mcg/kg/hr, Last Rate: 0.7 mcg/kg/hr (05/06/23899) Lactated Ringer's, 10 mL/hr, Last Rate: 10 mL/hr (05/06/23899) sodium chloride 0.9%, 3-12 mL/hr, Last Rate: 3 mL/hr (05/06/23899) sodium chloride 0.9%, 3-12 mL/hr, Last Rate: 6 mL/hr (05/06/23 1000) PRN Meds: albuterol HFA sodium chloride 0.9% sodium chloride 0.9% HYDROmorphone lidocaine PF metoprolol midazolam ondansetron oxyCODONE potassium chloride sodium chloride 0.9% Recent Labs Lab Units 05/05/23 0012 05/04/23 0120 05/03/23 0010 05/02/23 2155 05/02/23 1600 SODIUM mmol/L 145 140 134* < > 134* POTASSIUM PLASMA mmol/L 4.4 See Comment See Comment < > See Comment CHLORIDE mmol/L 106 109 106 < > 103 CO2 mmol/L 30 23 18* < > 16* BUN SERUM mg/dL 9 9 16 < > 15 CREATININE mg/dL 1.14 1.38* 1.27 < > 1.19 [id number] mL/min/1.73 m2 89 71 78 < > 84 CALCIUM mg/dL 8.1* 7.3* 7.7* < > 8.3* ALBUMIN g/dL -- -- -- -- 3.5 PHOSPHORUS PLASMA mg/dL 2.9 2.8 2.1* < > -- MAGNESIUM mg/dL 1.8 2.0 1.9 < > -- < > = values in this interval not displayed. Recent Labs Lab Units 05/06/23 0132 05/05/23 2115 05/05/23 1922 05/05/23 0012 05/04/23 1342 05/04/23 0748 05/04/23 0303 GLUCOSE mg/dL -- -- -- 126 -- -- -- POC GLUCOSE MONITOR mg/dL 122 140 140 -- 108 99 115 No results found for: ALT , AST , BILIRUBIN , ALKPHOS , LIPASE Lab Results Component Value Date TRIG 179 (H) 05/04/2023 NURSING ASSESSMENT: Last BM Date: (SPORT INTERN) Bowel Sounds (All Quadrants): Hypoactive Toni Scale Score: 13 Skin Integrity: Surgical incision [REMOVED] Pressure Ulcer/Pressure Injury 05/02/23 Mid-line Gluteal fold (horizontal junction between the thigh and buttock) Non-blanchanble erythema- Pressure Ulcer Status: Evolving Edema: Mild pitting, silght indention Minute Ventilation (L/min): 6 L/min Vital Signs BP: 143/68 Temp: 37.4 ??C (99.3 ??F) Pulse: 82 Resp: 17 SpO2: 96 % Intake/Output Summary (Last 24 hours) at 05/06/2023 0945 Last data filed at 05/06/2023 0900 Gross per 24 hour Intake 4329.49 ml Output 7100 ml Net -2770.51 ml Adult Malnutrition Scoring Tool (MST) What diet do you follow at home?: regular Have You Recently Lost Weight Without Trying?: No Have you been eating poorly because of a decreased appetite?: No Malnutrition Screening Tool (MST) Score: 0 Anthropometrics Weight: 111.6 kg (246 lb 0.5 oz) Admission Weight : 107.5 kg Weight Change: 4.09 kg (9.03 lbs) IBW/kg (Calculated) : 72.6 kg Height: 175.3 cm (5' 9 ) Weight in (lb) to have BMI = 25: 168.9 BMI (Calculated): 36.3 Wt Readings from Last 10 Encounters: 05/05/23 111.6 kg (246 lb 0.5 oz) 05/06/23 111.6 kg (246 lb 0.5 oz) ESTIMATED NEEDS: Kcal/kg: (2477-8178 kcal (14-18 kcal/kg BW)). Type of Weight Used for Estimated Kcals: Current Total Protein Estimated Needs (gm): 101.64 Protein Needs Based on g/k.4 Type of Weight Used forEstimated Protein : [place] Total Fluid Estimated Needs: 1815 Fluid Needs Based on : 25 ml/kg Type of Weight Used for EstimatedFluid Needs: [place] Allergies: Reviewed, NKFA IMPRESSION: RD follow-up on plan of care. Upon interview, pt is resting on mask, family is at bedside to provide history. Pt follows a Regular diet at baseline NK, and has had a great appetite prior to admission. His usual BW was 225-230 lbs, currently 246 lbs with mild pitting edema. Note order for Bumex 2 mg Q6 hrs for diuresis, anticipate fluid-related weight loss. RN at bedside, says pt is not having issues with thin liquids and pills PO so far. Family says for the last year he has been having diarrhea during the night and has been unable to figure out the cause. I/O; -3063, -7135 mL UOP BS are hypoactive, last BM was prior to admission. Note orders for Colace BID, miralax daily, and senna BID. Noted labs 05/05; Na 145, Blood K 3.4, BUN 9, Cr 1.14, Ca 8.1, Mg 1.8, and PO4 2.9. Pt was repleted with 2g Calcium gluconate, and 120 mEq KCl in the last 24 hrs. BG/24 hrs; 140, 122mg/dL. No insulin ordered. Pressure area to gluteal fold has healed. Wt Readings from Last 6 Encounters: 05/05/23 111.6 kg (246 lb 0.5 oz) 05/06/23 111.6 kg (246 lb 0.5 oz) ASPEN MALNUTRITION ASSESSMENT: N/A NUTRITION FOCUSED PHYSICAL EXAM: N/A NUTRITION DIAGNOSIS: Nutrition Diagnosis 1: Inadequate oral intake Related to: NPO status Evidenced by: Patient interview INTERVENTION(S): Summary: Assess for nutrition changes, [place] diet preferences within the limits of nutrition care order Pt is NPO for MRI. As soon as medically feasible, advance diet to a Regular diet and RD will follow PO adequacy. Please obtain standing weight 2x/week as soon as medically feasible given fluid- related weight gain(lumbar drain in place). RD will continue to monitor plan of care, PO intake and adequacy, nutrition- related labs, BM, and weight changes for further nutrition intervention as indicated. GOAL(S): Advance to oral intake as medically able, Adequate nutrition to meet estimated needs by next assessment MONITORING/EVALUATION: Appetite, Diet advancement, Electrolyte changes, Hydration status, I/O, Labs, PO intake, Stool patterns, Weight changes Darren Busby MS, RD, [facility], N [phone] [employer]-Weekend: [phone] TRO OPTICS ENGINEER * Flex Parsons MD - 05/06/2023 6:45 AM CST Vascular Surgery Daily Progress Patient Name/MRN: Eriberto Chau [id number] Treatment Team: Vascular Surgery- Pager: [phone] Attending: Faustino Herrera MD Today's Date: 05/06/2023 Room/Bed: [id number] Admit Date: 05/01/2023 Code Status: Full Code Subjective Chief complaint: Type B aortic dissection Events During This Hospitalization: 05/02: TEVAR, L subclavian stent placement Events Over Last 24 Hours: - extubated late AM - called for chest pain in the evening, stat CTA stable, but upon evaluation found to no longer be moving lower extremities with intact sensation, lumbar drain emergently placed, with some residual deficits in bilateral lower extremities currently (1-2/5 ankle flexion/extension, knee flexion, hip fl exion), with left weaker than right; intermittently agitated - WBC 23 from 16, Tmax 38.5, H flu + on PNA PCR, blood cultures NGTD - TTE bubble study w/ PFO, mild-moderate LV dysfunction, cards consult (Dr Abarca) pending Objective Vitals: 24hr Min/Max: Temp Min: 37.4 ??C (99.3 ??F) Max: 38.5 ??C (101.3 ??F) Pulse Min: 59 Max: 99 BP Min: 101/56 Max: 181/85 Resp Min: 8 Max: 36 SpO2 Min: 91 % Max: 100 % Most Recent : Vitals: 05/06/23 0630 BP: Pulse: 59 Resp: 24 Temp: 37.6 ??C (99.7 ??F) SpO2: 96% I/O last 2 completed shifts: In: 2717.6 [P.O.:960; I.V.:1067.6; NG/GT:540; IV Piggyback:150] Out: 7670 [Urine:7670] I/O this shift: In: 2438.3 [P.O.:240; I.V.:1219.3; Blood:779; IV Piggyback:200] Out: 4735 [Urine:4630] Physical Exam: General: awake and alert Neuro: BUE: 4-5/5 strength throughout, sensation intact; RLE: 1-2/5 ankle flexion, 2/5 knee flexion, 2/5 hip flexion; LLE: 1/5 throughout; sensation intact bilatereally Cardiac: regular rate and rhythm Pulses: 2+ and symmetric Palpable DP bilaterally, palpable L radial Lungs: NLB on 10L Abdomen: normal findings: soft, non-tender Lab/Radiology/Diagnostic Review: Laboratory review: Lab results in the last 12 hours: Recent Results (from the past 12 hour(s)) Troponin I high-sensitivity series (baseline, 2hr, 4hr, 6hr) Collection Time: 05/05/23 7:22 PM Result Value Ref Range Trop I hs 74 (H) <=35 ng/L POC Blood Gas and Chemistries, Arterial - Collection Time: 05/05/23 7:22 PM Result Value Ref Range pH, Art POC 7.49 (H) 7.35 - 7.45 pCO2, Art POC 44 35 - 45 mmHg pO2, Art POC 87 83 - 108 mmHg Na, POC 140 135 - 145 mmol/L K POC 3.7 3.3 - 4.9 mmol/L Cl, POC 101 97 - 110 mmol/L Ionized Ca, POC 4.20 (L) 4.50 - 5.10 mg/dL Glucose, POC 140 70 - 199 mg/dL Lactate, POC 1.0 0.7 - 2.2 mmol/L SO2 (natalia) arterial 99 (H) 90 - 95 % Base excess, POC 9.2 mmol/L HCO3, Art POC 34 (H) 20 - 30 mmol/L Hct, POC 30.0 (L) 41.4 - 51.6 % O2 Sat, Art POC (Calc) 97 % Total Hb, POC 9.9 (L) 13.8 - 17.2 g/dL Prepare RBC: 1 Units Collection Time: 05/05/23 7:56 PM Result Value Ref Range Product code [id number] Unit Number [id number] Product Blood Type APOS Dispense Status PRESUMED TRANSFUSED Protime-INR Collection Time: 05/05/23 8:14 PM Result Value Ref Range PT 16.9 (H) 10.3 - 13.7 sec INR 1.48 (H) 0.90 - 1.20 aPTT Collection Time: 05/05/23 8:14 PM Result Value Ref Range aPTT 35 28 - 38 sec Prepare platelets: 2 Units Collection Time: 05/05/23 8:17 PM Result Value Ref Range Product code [id number] Unit Number [id number] Product Blood Type APOS Dispense Status ISSUED Troponin I high-sensitivity 2-hour Collection Time: 05/05/23 9:15 PM Result Value Ref Range Trop I hs 68 (H) <=35 ng/L Trop I hs delta -6 ng/L Trop I hs interp Equivocal POC Blood Gas and Chemistries, Arterial - Collection Time: 05/05/23 9:15 PM Result Value Ref Range pH, Art POC 7.46 (H) 7.35 - 7.45 pCO2, Art POC 48 (H) 35 - 45 mmHg pO2, Art POC 128 (H) 83 - 108 mmHg Na, POC 140 135 - 145 mmol/L K POC 3.8 3.3 - 4.9 mmol/L Cl, POC 102 97 - 110 mmol/L Ionized Ca, POC 4.49 (L) 4.50 - 5.10 mg/dL Glucose, POC 140 70 - 199 mg/dL Lactate, POC 0.8 0.7 - 2.2 mmol/L SO2 (natalia) arterial 100 (H) 90 - 95 % Base excess, POC 9.1 mmol/L HCO3, Art POC 34 (H) 20 - 30 mmol/L Hct, POC 30.0 (L) 41.4 - 51.6 % O2 Sat, Art POC (Calc) 99 % Total Hb, POC 9.9 (L) 13.8 - 17.2 g/dL CBC without differential Collection Time: 05/06/23 1:28 AM Result Value Ref Range WBC 23.8 (H) 3.8 - 9.9 K/cumm Hgb 10.5 (L) 13.0 - 17.5 g/dL Hct 31.2 (L) 38.9 - 50.3 % Plt 193 150 - 400 K/cumm MPV 10.7 9.1 - 12.3 fL RBC 3.46 (L) 4.30 - 5.80 M/cumm MCV 90.2 81.3 - 96.4 fL MCH 30.3 27.1 - 33.3 pg MCHC 33.7 32.3 - 35.7 g/dL RDW CV 13.4 11.1 - 14.9 % RDW SD 44.2 35.7 - 48.1 fL NRBC abs 0.14 (H) 0.00 - 0.01 K/cumm Troponin I high-sensitivity 6-hour Collection Time: 05/06/23 1:28 AM Result Value Ref Range Trop I hs 61 (H) <=35 ng/L Trop I hs delta -13 ng/L Trop I hs interp Equivocal POC Blood Gas and Chemistries, Arterial - Collection Time: 05/06/23 1:32 AM Result Value Ref Range pH, Art POC 7.48 (H) 7.35 - 7.45 pCO2, Art POC 47 (H) 35 - 45 mmHg pO2, Art POC 65 (L) 83 - 108 mmHg Na, POC 141 135 - 145 mmol/L K POC 3.5 3.3 - 4.9 mmol/L Cl, POC 101 97 - 110 mmol/L Ionized Ca, POC 4.27 (L) 4.50 - 5.10 mg/dL Glucose, POC 122 70 - 199 mg/dL Lactate, POC 0.7 0.7 - 2.2 mmol/L SO2 (natalia) arterial 96 (H) 90 - 95 % Base excess, POC 10.2 mmol/L HCO3, Art POC 35 (H) 20 - 30 mmol/L Hct, POC 32.0 (L) 41.4 - 51.6 % O2 Sat, Art POC (Calc) 94 % Total Hb, POC 10.7 (L) 13.8 - 17.2 g/dL Potassium, whole blood Collection Time: 05/06/23 6:07 AM Result Value Ref Range Potassium, bld 3.4 3.3 - 4.9 mmol/L Assessment/Plan Principal Problem: Dissection of aorta, unspecified portion of aorta (HCC) Active Problems: Dissection of thoracoabdominal aorta (CMS/HCC) (HCC) Problem List Cardiac and Vasculature * (Principal) Dissection of aorta, unspecified portion of aorta (HCC) Current Assessment & Plan 32y/o male with uncontrolled HTN who presented to an OSH ER with acute onset shortness of breath, chest pain and back pain. 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 He was transferred to [facility] for further evaluation and treatment. Here, he was seen by vascular surgery and admitted to the CTICU for impulse control. He had recurrent worsening pain and a repeat CTA this morning. This showed ???interval cranial propagation of a type B thoracic aortic dissection which now extends from approximately zone 3 to theleft common iliac artery; no change in aortic caliber; this dissection may originate in the midthoracic aorta, or fenestration is present at the level of T4; increasing fat stranding about the aorticarch and great vessels, likely reactive in the setting of dissection propagation, no extraluminal contrast present to suggest aortic rupture?? , for which CTS was consulted. CTA reviewed with Daniel Balderas, and Mesha. All feel these findings not to be telephone service representative of a type a dissection, therefore no urgent cardiac surgery is recommended. However, he is continuing to have significant pain despite BP control and pain medications, in addition to the propagationof the dissection. Recommend reaching back out to vascular surgery to consider a vascular intervention. I have called the on-call vascular fellow and left a voicemail. Echo ordered stat. This showed LVEF of 41%, dilated atria, dilated IVC, normal aortic root size, nopericardial effusion. As above, recommend following up with vascular surgery. Please get stat chest abdomen pelvis CTA if any clinical or neurological changes. Continue impulse control. Consider cardiology consult in the setting of difficult to control, longstanding hypertension and findings of HFrEF with LVEF of 41%. Relevant Orders Critical Care (Completed) Central Line (Completed) Dissection of thoracoabdominal aorta (CMS/HCC) (HCC) Relevant Orders CV Hybrid Room (Default Orderable) (Completed) 32 yo M who presented with Type B aortic dissection with worsening pain, now s/p TEVAR and L subclavian artery stent. Now with concern for lumbar spinal ischemia - Continue q1h lower extremity neurovascular checks - Goal MAP > 100 - Hgb > 10, Plt > 100 - spine MRI not urgent from our perspective as it won't sales and service change leader, lumbar drain, f/u NSGY - cardiology (Dr Abarca) consult Flex Parsons MD, MSc [phone] For patients or family members viewing this note through [employer] programs: This note was written as a [...] care. Cosigned by Faustino Herrera MD at 05/06/2023 12:25 PM ELECTRO OPTICS ENGINEER TRO OPTICS ENGINEER TRO OPTICS ENGINEER Associated attestation - Faustino Herrera MD - 05/06/2023 12:25 PM ELECTRO OPTICS ENGINEER I have seen and examined the patient on 05/06/23. I agree with the findings and plan of care as documented in the resident's/fellow's note. and with the following modifications:Discussed events of the last day with mother at bedside, she verbalized understanding of the concern for SCI, the management, and the future potentials. She also reported his GF had reported recent cocaine use in the months leading up to this event, and I disclosed how these dissections portend a more malignant course. His exam continues to improve, 4/5 IP on the R, 3/5 on the L.. * Dustin Souza, - 05/06/2023 1:[address] ICU Daily Progress Shifts: MD Shift Options: CTI Blue 3 PM Subjective Patient is a 32 y.o. male admitted to the hospital on 05/01/2023 4:58 AM with/following: Type B Aortic dissection ICU events 05/02: TEVAR 05/03: R IJ CVC 05/05: c/f spinal cord ischemia, lumbar drain placed Overnight events: 05/05 AM - increased lisinopril, scheduled dilt, labetalol pushes - sputum cx pre-extubation, extubated - xanax for restlessness - CTA dissection protocol for worsening CP 05/05 PM - tte w/ mild/mod dec fxn, PFO - LE exam w/ LLE ankle flexion only, RLE w/ antigravity knee flexion, c/f spinal cord ischemia - Per vasc: Hgb >10, spo2 100%, SBP 140-160 - Lumbar drain plcm by NSGY - Exam w/ LLE ankle flexion, hip ext, slight knee bend. RLE strength appears intact, sensation intact to b/l LE - total spine MRI ordered Objective Medications: Scheduled Meds:acetaminophen, 1,000 mg, oral, Q6H SUSAN aspirin, 81 mg, oral, Daily bumetanide, 2 mg, intravenous, Q6H SUSAN And potassium chloride ER, 20 mEq, oral, Q6H carvediloL, 50 mg, oral, BID chlorhexidine, 15 mL, swish & spit, BID dilTIAZem, 15 mg, intravenous, Q8H docusate, 100 mg, oral, BID [Held by Provider] heparin, 5,000 Units, subcutaneous, Q8H SUSAN lidocaine, 2 patch, transdermal, Q24H lidocaine, 5 mL, subcutaneous, Once lidocaine, 10 mL, subcutaneous, Once lidocaine PF, , , lidocaine PF, 20 mL, infiltration, Once linezolid, 600 mg, intravenous, Q12H SUSAN lisinopriL, 20 mg, oral, Daily meropenem, 1,000 mg, intravenous, Q8H SUSAN metoprolol tartrate, 100 mg, oral, BID polyethylene glycol, 17 g, oral, Daily potassium chloride, 40 mEq, intravenous, Once senna, 8.8 mg, oral, BID sodium chloride, 2 spray, each nostril, Q2H while awake sodium chloride 0.9%, 0.5-20 mL, intra-catheter, Q8H SUSAN Continuous Infusions:clevidipine, 0-32 mg/hr, Last Rate: 18 mg/hr (05/06/23 0110) dexmedeTOMIDine, 0-1.5 mcg/kg/hr, Last Rate: Stopped (05/05/239) ketamine, 10 mg/hr, Last Rate: 10 mg/hr (05/06/23 0000) Lactated Ringer's, 10 mL/hr, Last Rate: 10 mL/hr (05/06/23 0100) sodium chloride 0.9%, 3-12 mL/hr, Last Rate: 3 mL/hr (05/06/23 0100) sodium chloride 0.9%, 3-12 mL/hr, Last Rate: 3 mL/hr (05/02/23 2300) Vitals: Temp: [37.4 ??C (99.3 ??F)-38.5 ??C (101.3 ??F)] 38.1 ??C (100.6 ??F) Pulse: [74-99] 87 BP: (101-181)/(56-107) 165/86 Resp: [8-36] 18 SpO2: [91 %-100 %] 96 % Arterial Line BP: (111-195)/(42-102) 150/57 FiO2 (%): [40 %] 40 % Fluid balance: I/O this shift: In: 1754 [I.V.:875; Blood:779; IV Piggyback:100] Out: 1823 [Urine:1805] Intake/Output Summary (Last 24 hours) at 05/06/2023 0202 Last data filed at 05/06/2023 0135 Gross per 24 hour Intake 3752.25 ml Output 5563 ml Net -1810.75 ml Ventilator settings: Adult Vent Mode: Pressure support Ventilation FiO2 (%): 40 % Pressure Support (cm H2O): 12 cm H20 (05/05 916-05/05 2015) Hemodynamic parameters: PAP: -- CVP: -- PCWP: -- CO: -- CI: -- SVO2: -- Pacemaker Overdrive Pacing: -- Cardiac Rhythm: Normal sinus rhythm (05/05 2000) Pacer Mode: -- Physical exam: Physical Exam: Neuro: AOx2-3, PERRL Cardiac: RR, S1/S2, periphery warm, pulses palpable distally Resp: lungs CTAB GI: abdomen round, soft, normal bowel sounds : hutton w/ clear yellow urine Skin: pink, warm, dry, midline sternotomy incision open to air, C/D/I MSK: UE strength intact b/l, LLE able to flex/ext foot, ext hip, minimal knee movement, RLE appearsintact, intact sensation to b/l LE LTDA: ETT, RIJ Quad lumen, R radial a-line, PIV x3, Hutton, OGT Laboratory data: Recent Labs Lab Units 05/06/23 0132 05/06/23 0128 05/05/23 2115 05/05/23 1922 05/05/23 0012 05/04/23 0303 05/04/23 0120 WBC K/cumm -- 23.8* -- -- 16.4* -- 13.5* HEMOGLOBIN, POC g/dL 10.7* -- 9.9* < > -- < > -- HEMOGLOBIN g/dL -- 10.5* -- -- 9.4* -- 9.1* HEMATOCRIT % -- 31.2* -- -- 27.9* -- 25.2* HEMATOCRIT POC % 32.0* -- 30.0* < > -- < > -- PLATELETS K/cumm -- 193 -- -- 132* -- 115* < > = values in this interval not displayed. Recent Labs Lab Units 05/05/23 0012 05/04/23 0120 05/03/23 0010 SODIUM mmol/L 145 140 134* POTASSIUM PLASMA mmol/L 4.4 See Comment See Comment CHLORIDE mmol/L 106 109 106 CO2 mmol/L 30 23 18* BUN SERUM mg/dL 9 9 16 CREATININE mg/dL 1.14 1.38* 1.27 CALCIUM mg/dL 8.1* 7.3* 7.7* Recent Labs Lab Units 05/05/23201305/02/23 0410 05/01/23 0519 PROTIME (PT) sec 16.9* 14.9* 13.7 INR 1.48* 1.31* 1.20 APTT sec 35 -- 34 Recent Labs Lab Units 05/06/23 0132 05/05/23 2115 05/05/23 1922 05/05/23 0821 05/05/23 0451 05/04/23 2230 PH ART 7.48* 7.46* 7.49* 7.42 7.40 7.40 PCO2 ART mmHg -- -- -- 52* 51* 46* PO2 ART mmHg -- -- -- 117* 118* 101 PO2 ARTERIAL POC mmHg 65* 128* 87 -- -- -- BASE EXC ART mmol/L -- -- -- 8 5 4 Review of the laboratory data shows: CT BODY OUTSIDE CONSULT 05/01/2023 Impression 1. Extension of the type B thoracic aortic aneurysm, terminates just above the bifurcation, with origins the left renal artery and celiac artery arising off the false lumen. No evidence of vascular compromise. The entry tear is not definitely visualized, it may be just proximal to the diaphragmatichiatus as this is where contrast within the false lumen is most dense. 2. Pseudofeces in the small bowel, without evidence of obstruction. This is of unknown clinical significance and is of uncertain etiology. Continued attention on follow-up imaging and correlation with symptomatology is recommended. Impression and Plan: Active problems/Diagnoses and Plans: Acute postoperative pain Agitation - tylenol susan - prn oxy/HM - precedex gtt Acute type B aortic dissection Hypertension CT showed extension of the type B thoracic aortic aneurysm, terminates just above the bifurcation, with origins the left renal artery and celiac artery arising off the false lumen. - OR 05/02 for TEVAR - 05/05 upon extubation pt LE exam w/ LLE ankle flexion only, RLE w/ antigravity knee flexion, c/f spinal cord ischemia - Vascular surgery following. -recs: SBP 140-160, Hgb >10, SpO2 100% - Lumbar drain placed 05/05 w/ NSGY, drain ~10cc/hr - antihtn regimen: clevidipine gtt (tachyphylaxis w/ esmolol), lisinopril 20, carvedilol 50 bid, diltiazem 15 q8h, metoprolol 100 bid - q1h NV checks Respiratory insufficiency Expected postoperatively. History of desat and wheezing, after administration of sugammadex and zofran in the OR prior to attempt to extubate. Required albuterol and epi pushes. BP stable throughout event. Lungs clear on arrival. Episode of desat resolved with recruitment breaths. - extubated to face mask 05/05 - wean FiO2 to SpO2 >92% - Encourage IS - CXR w improving volume overload Obstructive sleep apnea - consider NPPV nightly once extubated Epistaxis Significant nose bleed in the OR requiring intra-op ENT c/s. DL performed, no other sources of bleeding visualized. ACT post protamine 149. - Packing in place - ENT following - Afrin BID prn, ocean spray tid - no other s/s bleeding #Acute blood loss anemia #Thrombocytopenia - Daily CBC #Fever - cont APAP q6h susan - TA 05/05 growing Haemophilus Inf - UA, BCx x2 - ngtd - susana/linezolid (05/04 - ) - WBC 23.8, continue to monitor #Hypertriglyceridemia - TG 895 05/04, paused gtt, weaning clevidipine - TG 179 on 05/05. ICU Standards of Care: Diet: NPO DVT prophylaxis: SCDs, SQH PUD prophylaxis: famotidine while intubated Dispo: ICU Code status: Full code TDLA: R IJ Quad lumen, PIVx3, R radial a-line, Hutton Dustin Souza DO PGY-3 Anesthesiology Cosigned by Gus Busby MD at 05/06/2023 11:13 AM ELECTRO OPTICS ENGINEER TRO OPTICS ENGINEER TRO OPTICS ENGINEER TRO OPTICS ENGINEER * Carlos Alberto Nix MD PhD - 05/05/2023 11:18 PM CST Neurosurgery Preoperative Note Surgeon: Dr. Smith Diagnosis: Concern for spinal cord infarct Procedure: Lumbar drain placement OR date: 05/05/23 Labs: BMP Lab Results Component Value Date SODIUM 145 05/05/2023 POTASSIUM 4.4 05/05/2023 CO2 30 05/05/2023 BUNSER 9 05/05/2023 GLUCOSE 140 05/05/2023 CREATININE 1.14 05/05/2023 CALCIUM 8.1 (L) 05/05/2023 CHLORIDE 106 05/05/2023 CBC Lab Results Component Value Date WBC 16.4 (H) 05/05/2023 HGB 9.9 (L) 05/05/2023 HCT 30.0 (L) 05/05/2023 LABPLAT 132 (L) 05/05/2023 NEUTOPHILPCT 86.9 05/01/2023 LYMPHOPCT 4.7 05/01/2023 MONOPCT 6.7 05/01/2023 EOSPCT 0.0 05/01/2023 Coags Lab Results Component Value Date APTT 35 05/05/2023 INR 1.48 (H) 05/05/2023 Type and screen Lab Results Component Value Date ABORH A Positive 05/04/2023 IDCOOMB Negative 05/04/2023 UA Lab Results Component Value Date COLORU Straw 05/04/2023 CLARITYU Clear 05/04/2023 SPECGRAVU 1.011 05/04/2023 PHURINE 5.5 05/04/2023 PROTURQL Trace 05/04/2023 GLUCOSEUR Negative 05/04/2023 KETONESU Negative 05/04/2023 BILIRUBINUR Negative 05/04/2023 BLOODUR 3+ (A) 05/04/2023 UROBILINOGEN <2.0 05/04/2023 NITRITEU Negative 05/04/2023 LEUKESTUR Negative 05/04/2023 VerifyNow No results found for: SALICYLATE , [id number] CXR: reviewed EKG: reviewed Patient NPO?: N/A IVF while NPO: N/A Anticoagulation held?: yes Imaging: No imaging available for review Blood products: T&S only Surgery & Blood Consents: paper consent in chart IPAP/CPAP called: N/A Tumor Bank: N/A (This is not a tumor procedure) I have discussed the risks, benefits and indications of the above procedure with the patient's family. Specifically, we discussed the risks of infection, bleeding, stroke, coma, or . They indicated understanding of these risks and agreed to proceed. Carlos Alberto Nix MD PhD TRO OPTICS ENGINEER * Timmy Rosales - 05/05/2023 4:35 PM CST Fr Timmy Rosales [phone] 05/05/23 1600 Time Spent Start Time 1510 Stop Time 1520 Time Calculation (min) 10 min Patient Spiritual Assessment Spirituality Assessed Yes Rastafarian Affiliation Mu-Ism Active in Synagogue Yes Spiritual Needs Prayer Clinical Encounter Type Visited With Patient and family together Response Type Continuing visit Routine Visit Follow-up Continue Visiting Yes Reason for visit Sacramental;Support Outcomes and Progress Aligning care with patient's values Achieved Preserve dignity and respect Achieved Demonstrating care and respect Achieved Interventions Interventions Active listening;Offer spiritual/alevism support;Prayer (Benediction) TRO OPTICS ENGINEER * Cleveland Hawley MD - 05/05/2023 2:45 PM CST Otolaryngology - Head & Neck Surgery Daily Progress Subjective Chief complaint: Chief Complaint Patient presents with Chest Pain Interval History: - ENT re-engaged for absorbable packing causing the patient irritation - On exam, packing was sticking out of bilateral nares. Nasal cavities were dry with dried blood. Objective VITALS, 24HR MIN/MAX: Temp Min: 37.4 ??C (99.3 ??F) Max: 38.1 ??C (100.6 ??F) Pulse Min: 74 Max: 88 BP Min: 97/59 Max: 153/73 Resp Min: 8 Max: 20 SpO2 Min: 94 % Max: 100 % I&O I/O last 2 completed shifts: In: 3480.6 [I.V.:2030.6; NG/GT:510; IV Piggyback:940] Out: 84851 [Urine:79317] Net IO Since Admission: 4,855.66 mL [05/05/23 1446] Output by Drain (mL) 05/03/23 07 - 05/03/23 1859 05/03/23 1900 - 05/04/23 0659 05/04/23 07 - 05/04/23 1859 05/04/23 1900 - 05/05/23 0659 05/05/23 0700 - 05/05/23 1446 Requested LDAs do not have output data documented. Scheduled Continuous As needed acetaminophen, 1,000 mg, oral, Q6H SUSAN [START ON 05/06/2023] aspirin, 81 mg, oral, Daily bumetanide, 2 mg, intravenous, Q6H SUSAN And potassium chloride ER, 20 mEq, oral, Q6H carvediloL, 50 mg, oral, BID chlorhexidine, 15 mL, swish & spit, BID dilTIAZem, 15 mg, intravenous, Q8H docusate, 100 mg, oral, BID heparin, 5,000 Units, subcutaneous, Q8H SUSAN lidocaine, 2 patch, transdermal, Q24H lidocaine, 5 mL, other, Once linezolid, 600 mg, intravenous, Q12H SUSAN [START ON 05/06/2023] lisinopriL, 20 mg, oral, Daily meropenem, 1,000 mg, intravenous, Q8H SUSAN metoprolol tartrate, 100 mg, oral, BID [START ON 05/06/2023] polyethylene glycol, 17 g, oral, Daily senna, 8.8 mg, oral, BID sodium chloride, 2 spray, each nostril, Q2H while awake sodium chloride 0.9%, 0.5-20 mL, intra-catheter, Q8H SUSAN clevidipine, 0-32 mg/hr, Last Rate: 32 mg/hr (05/05/23 1352) dexmedeTOMIDine, 0-1.5 mcg/kg/hr, Last Rate: 0.4 mcg/kg/hr (05/05/23 1300) esmolol, 0-300 mcg/kg/min, Last Rate: 0 mcg/kg/min (05/04/23 1227) fentaNYL, 0-400 mcg/hr, Last Rate: Stopped (05/05/23 09) ketamine, 50 mg/hr, Last Rate: Stopped (05/05/23 0924) Lactated Ringer's, 10 mL/hr, Last Rate: 10 mL/hr (05/03/23 1900) sodium chloride 0.9%, 3-12 mL/hr, Last Rate: 3 mL/hr (05/05/23 1100) sodium chloride 0.9%, 3-12 mL/hr, Last Rate: 3 mL/hr (05/02/23 2300) albuterol HFA, 2 puff sodium chloride 0.9%, 30 mL, 30 mL at 05/02/23 2345 sodium chloride 0.9%, 30 mL, 30 mL at 05/03/23 0855 fentaNYL, 50 mcg fentaNYL, 50 mcg, 50 mcg at 05/05/23 0839 metoprolol, 10 mg, 10 mg at 05/05/23 1050 midazolam, 2 mg, 2 mg at 05/05/23 0511 ondansetron, 4 mg, 4 mg at 05/02/23 1001 potassium chloride, 40 mEq sodium chloride 0.9%, 0.5-20 mL Physical Exam: Vitals: 05/05/23 1108 05/05/23 1200 05/05/23 1259 05/05/23 1300 BP: 120/68 138/70 138/70 BP Location: Right arm Patient Position: Lying Pulse: 83 86 86 Resp: 11 11 10 Temp: (!) 38.1 ??C (100.6 ??F) (!) 38.1 ??C (100.6 ??F) (!) 38.1 ??C (100.6 ??F) TempSrc: Bladder Bladder SpO2: 100% 96% 94% 95% Weight: Height: General: awake, NAD. Head and Face: NC, AT. Face symmetric. Eyes: Sclera with hemorrhage left eye. Sclera white right eye. EOMI. Ears: Normal external ears Nose: Dried blood and absorbable packing in bilateral nares. Left nares with 1cm length of packing extending out of nasal cavity Mouth: No OC/OP bleeding, tolerating secretions, MMM Neck: Soft and flat CV: Extremities warm and well-perfused Pulm: Normal quiet breathing. No respiratory distress, stridor, or wheeze. Neuro: Regards, opens eyes, answers questions. Was not oriented to conversation. Lab/Radiology/Diagnostic Review: LABS 24 HOURS: Lab Results Component Value Date WBC 16.4 (H) 05/05/2023 HGB 9.4 (L) 05/05/2023 HCT 27.9 (L) 05/05/2023 LABPLAT 132 (L) 05/05/2023 TRIG 179 (H) 05/04/2023 ALT See Comment 05/02/2023 AST See Comment 05/02/2023 SODIUM 145 05/05/2023 POTASSIUM 4.4 05/05/2023 CHLORIDE 106 05/05/2023 BUNSER 9 05/05/2023 CO2 30 05/05/2023 CREATININE 1.14 05/05/2023 GLUCOSE 126 05/05/2023 CALCIUM 8.1 (L) 05/05/2023 CAION 4.33 (L) 05/04/2023 PHOS 2.9 05/05/2023 MAGNESIUM 1.8 05/05/2023 TSH 1.52 05/03/2023 PT 14.9 (H) 05/02/2023 INR 1.31 (H) 05/02/2023 Lab Results Component Value Date MICROBIOLOGY Preliminary Report: No growth to date. 05/04/2023 MICROBIOLOGY Preliminary Report: No growth to date. 05/04/2023 DIRECTEXAM 05/05/2023 Stain: Abundant polymorphonuclear leukocytes seen. No squamous epithelial cells seen. No organisms seen. XR Chest 1 View Narrative: EXAMINATION: 1 view chest radiograph Impression: The current study is compared with the prior radiograph dated 05/03/2023 10:12 PM. An endotracheal tube terminates approximately 4 cm above the sommer. A gastric tube courses below the diaphragm with tip outside of the field of view. A right internal jugular central venous catheter terminates in the right atrium. There is a thoracic aortic endovascular graft stent and left subclavian artery stent. There is a small left pleural effusion and moderate left atelectasis, unchanged. Moderate right atelectasis is unchanged. No definite pleural effusion on the right. No pulmonary edema. No pneumothorax. The cardiomediastinal silhouette is stable. Dictated by: Shady Childers MD The radiology attending physician has personally reviewed this study, and had reviewed and/or edited this written report and agrees with it. Electronically signed by: Marlee Jimenez M.D. Assessment/Plan Principal Problem: Dissection of aorta, unspecified portion of aorta (HCC) Active Problems: Dissection of thoracoabdominal aorta (CMS/HCC) (HCC) Assessment: 32 y.o. male with undergoing thoracic aorta repair with intraoperative epistaxis, s/p absorbable packing, kept intubated and transferred to the MICU. Extubated 05/05, has not had epistaxis but has been irritated by his nasal packing. Plan: - Packing in left naris was trimmed down to level of ala to reduce discomfort - Would not recommend removal of packing given dryness of nasal cavities, could cause more epistaxis and packing should dissolve - [place] nasal spray q2h scheduled while awake - [place] gel (sodium chloride - aloe vera) for moisture - Humidification - No nose blowing. Open mouth sneezing only. - No foreign bodies in the nose. No gauze, kleenex, fingers, suction devices. - Stool softeners to avoid straining. -If OK with primary team, in the event of an episode of epistaxis, please spray the nose generouslywith Afrin on both sides. Have the patient hold pressure on the soft part of the nose for 20 minutes uninterrupted. Have the patient lean forward during episodes of epistaxis to avoid swallowing blood, which can cause nausea. If epistaxis does not resolve after these measures are taken, please callENT for assistance. Do not use Afrin scheduled or for more than 3 days. Cleveland Hawley MD Otolaryngology - Head & Neck Surgery QUESTIONS: Weekdays daytime: [facility] Consult New consults, after-hours & weekends: [facility] Resident Primary/Night Float ENT scheduling line: [phone] (please include in discharge paperwork as needed) Cosigned by Kaylie Saldana MD at 05/05/2023 8:56 PM ELECTRO OPTICS ENGINEER TRO OPTICS ENGINEER TRO OPTICS ENGINEER * Flex Parsons MD - 05/05/2023 11:15 AM CST Vascular Surgery Daily Progress Patient Name/MRN: Eriberto Chau [id number] Treatment Team: Vascular Surgery- Pager: [phone] Attending: Faustino Herrera MD Today's Date: 05/05/2023 Room/Bed: [place] [id number] Admit Date: 05/01/2023 Code Status: Full Code Subjective Chief complaint: Type B aortic dissection Events During This Hospitalization: 05/02: TEVAR, L subclavian stent placement Events Over Last 24 Hours: - spontaneously moves extremities when sedation weaned - FiO2 down to 40%, CXR much improved after significant diuresis in last 24h Objective Vitals: 24hr Min/Max: Temp Min: 37 ??C (98.6 ??F) Max: 38.1 ??C (100.6 ??F) Pulse Min: 74 Max: 88 BP Min: 90/60 Max: 153/73 Resp Min: 9 Max: 17 SpO2 Min: 96 % Max: 100 % Most Recent : Vitals: 05/05/23 1108 BP: Pulse: Resp: Temp: SpO2: 100% I/O last 2 completed shifts: In: 3480.6 [I.V.:2030.6; NG/GT:510; IV Piggyback:940] Out: 74028 [Urine:33179] I/O this shift: In: 42.5 [I.V.:32.5; NG/GT:10] Out: 1155 [Urine:1155] Physical Exam: General: sedated Neuro: sedated, unable to assess Cardiac: regular rate and rhythm Pulses: 2+ and symmetric Palpable DP bilaterally, palpable L radial Lungs: FiO2 80%, symmetric chest rise on ventilator Abdomen: normal findings: soft, non-tender Lab/Radiology/Diagnostic Review: Laboratory review: Lab results in the last 12 hours: Recent Results (from the past 12 hour(s)) CBC without differential Collection Time: 05/05/23 12:12 AM Result Value Ref Range WBC 16.4 (H) 3.8 - 9.9 K/cumm Hgb 9.4 (L) 13.0 - 17.5 g/dL Hct 27.9 (L) 38.9 - 50.3 % Plt 132 (L) 150 - 400 K/cumm MPV 10.3 9.1 - 12.3 fL RBC 3.10 (L) 4.30 - 5.80 M/cumm MCV 90.0 81.3 - 96.4 fL MCH 30.3 27.1 - 33.3 pg MCHC 33.7 32.3 - 35.7 g/dL RDW CV 13.3 11.1 - 14.9 % RDW SD 43.4 35.7 - 48.1 fL NRBC abs 0.04 (H) 0.00 - 0.01 K/cumm Basic metabolic panel Collection Time: 05/05/23 12:12 AM Result Value Ref Range Sodium 145 135 - 145 mmol/L Potassium, pl 4.4 3.3 - 4.9 mmol/L Chloride 106 97 - 110 mmol/L CO2 30 22 - 32 mmol/L Anion gap 9 2 - 15 mmol/L BUN 9 6 - 25 mg/dL Creatinine 1.14 0.80 - 1.30 mg/dL Glucose 126 70 - 199 mg/dL Calcium 8.1 (L) 8.5 - 10.3 mg/dL Magnesium Collection Time: 05/05/23 12:12 AM Result Value Ref Range Magnesium 1.8 1.4 - 2.5 mg/dL Phosphorus Collection Time: 05/05/23 12:12 AM Result Value Ref Range Phosphorus, pl 2.9 2.3 - 4.5 mg/dL eGFR Collection Time: 05/05/23 12:12 AM Result Value Ref Range eGFR 89 >=60 mL/min/1.73 m2 Potassium, whole blood Collection Time: 05/05/23 4:51 AM Result Value Ref Range Potassium, bld 4.2 3.3 - 4.9 mmol/L Blood gas, arterial Collection Time: 05/05/23 4:51 AM Result Value Ref Range pH, Art 7.40 7.35 - 7.45 PCO2, Arterial 51 (H) 35 - 45 mmHg PO2, Arterial 118 (H) 83 - 108 mmHg HCO3 Art (Calculated) 32 (H) 20 - 30 mmol/L BE, art 5 mmol/L O2 Sat Art (Measured) 99 (H) 90 - 95 % Lactate Collection Time: 05/05/23 8:21 AM Result Value Ref Range Lactate 0.8 0.7 - 2.0 mmol/L Blood gas, arterial Collection Time: 05/05/23 8:21 AM Result Value Ref Range pH, Art 7.42 7.35 - 7.45 PCO2, Arterial 52 (H) 35 - 45 mmHg PO2, Arterial 117 (H) 83 - 108 mmHg HCO3 Art (Calculated) 34 (H) 20 - 30 mmol/L BE, art 8 mmol/L O2 Sat Art (Measured) 99 (H) 90 - 95 % Assessment/Plan Principal Problem: Dissection of aorta, unspecified portion of aorta (HCC) Active Problems: Dissection of thoracoabdominal aorta (CMS/HCC) (HCC) Problem List Cardiac and Vasculature * (Principal) Dissection of aorta, unspecified portion of aorta (HCC) Current Assessment & Plan 32y/o male with uncontrolled HTN who presented to an OSH ER with acute onset shortness of breath, chest pain and back pain. 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 He was transferred to [facility] for further evaluation and treatment. Here, he was seen by vascular surgery and admitted to the CTICU for impulse control. He had recurrent worsening pain and a repeat CTA this morning. This showed ???interval cranial propagation of a type B thoracic aortic dissection which now extends from approximately zone 3 to theleft common iliac artery; no change in aortic caliber; this dissection may originate in the midthoracic aorta, or fenestration is present at the level of T4; increasing fat stranding about the aorticarch and great vessels, likely reactive in the setting of dissection propagation, no extraluminal contrast present to suggest aortic rupture?? , for which CTS was consulted. CTA reviewed with Daniel Balderas, and Mesha. All feel these findings not to be telephone service representative of a type a dissection, therefore no urgent cardiac surgery is recommended. However, he is continuing to have significant pain despite BP control and pain medications, in addition to the propagationof the dissection. Recommend reaching back out to vascular surgery to consider a vascular intervention. I have called the on-call vascular fellow and left a voicemail. Echo ordered stat. This showed LVEF of 41%, dilated atria, dilated IVC, normal aortic root size, nopericardial effusion. As above, recommend following up with vascular surgery. Please get stat chest abdomen pelvis CTA if any clinical or neurological changes. Continue impulse control. Consider cardiology consult in the setting of difficult to control, longstanding hypertension and findings of HFrEF with LVEF of 41%. Relevant Orders Critical Care (Completed) Central Line (Completed) Dissection of thoracoabdominal aorta (CMS/HCC) (HCC) Relevant Orders CV Hybrid Room (Default Orderable) (Completed) 32 yo M who presented with Type B aortic dissection with worsening pain, now s/p TEVAR and L subclavian artery stent. Hemodynamically doing well, but from a respiratory perspective on a significant amount of support. - Continue q1h lower extremity neurovascular checks - Goal SBP 100-120 - Hgb > 9 - wean respiratory support per ICU, consider respiratory panel - cardiology (Dr Abarca) consult Flex Parsons MD, MSc [phone] For patients or family members viewing this note through [employer] programs: This note was written as a [...] care. Cosigned by Faustino Herrera MD at 05/05/2023 12:29 PM ELECTRO OPTICS ENGINEER TRO OPTICS ENGINEER TRO OPTICS ENGINEER * Radha Wyatt, IRRIGATION SYSTEM INSTALLER - 05/05/2023 11:01 AM CST EXTUBATION Situation: Per MD/CYNTHIA order, the patient was extubated without incident, and resting on 40% aerosol face mask.No signs of respiratory distress noted at this time. Plan: Continue to monitor patients respiratory status and intervene as necessary. TRO OPTICS ENGINEER * Mariel Pope OT - 05/05/2023 7:13 AM CST Occupational Therapy 05/05/23712 General OT Missed Visit Reason Sedated;Bedrest (intubated, sedated) TRO OPTICS ENGINEER * Thea Rizzo MD - 05/05/2023 12:[address] ICU Daily Progress Shifts: MD Shift Options: CTI Blue 3 PM Subjective Patient is a 32 y.o. male admitted to the hospital on 05/01/2023 4:58 AM with/following: Type B Aortic dissection ICU events 05/02: TEVAR 05/03: R IJ CVC Overnight events: 05/04 AM: - half the esmolol gtt-->no change in HR, wean off esmolol (tachyphylaxis?) - metoprolol 100 BID per tube, metoprolol 10 IV q6h PRN - Increase lisinopril to 10mg daily - Repeat ABG - Check triglycerides tonight - start trickle TF - A line SBP 30 higher than NIBP; titrate off NIBP 05/04 PM - dilt 10 TID prn - lisinopril 5 x1, metop 10 x1 - off clevidipine - TG 179 (895) - K, Mag, Phosph Objective Medications: Scheduled Meds:acetaminophen, 1,000 mg, feeding tube, Q6H SUSAN albuterol HFA, 8 puff, inhalation, Q4H SUSAN (RT) aspirin, 81 mg, feeding tube, Daily bumetanide, 2 mg, intravenous, Q6H And potassium chloride, 20 mEq, feeding tube, Q6H carvediloL, 50 mg, feeding tube, BID chlorhexidine, 15 mL, swish & spit, BID docusate, 100 mg, feeding tube, BID famotidine, 20 mg, intravenous, Q12H SUSAN heparin, 5,000 Units, subcutaneous, Q8H SUSAN lidocaine, 2 patch, transdermal, Q24H linezolid, 600 mg, intravenous, Q12H SUSAN lisinopriL, 10 mg, feeding tube, Daily magnesium sulfate, 2 g, intravenous, Once meropenem, 1,000 mg, intravenous, Q8H SUSAN metoprolol tartrate, 100 mg, feeding tube, BID polyethylene glycol, 17 g, feeding tube, Daily senna, 8.8 mg, feeding tube, BID sodium chloride, 2 spray, each nostril, TID with meals sodium chloride 0.9%, 0.5-20 mL, intra-catheter, Q8H [facility] Continuous Infusions:clevidipine, 0-32 mg/hr, Last Rate: Stopped (05/04/232224) dexmedeTOMIDine, 0-1.5 mcg/kg/hr, Last Rate: 0.8 mcg/kg/hr (05/05/2399) esmolol, 0-300 mcg/kg/min, Last Rate: 0 mcg/kg/min (05/04/23 1227) fentaNYL, 0-400 mcg/hr, Last Rate: 150 mcg/hr (05/05/2399) ketamine, 50 mg/hr, Last Rate: 50 mg/hr (05/05/2399) Lactated Ringer's, 10 mL/hr, Last Rate: 10 mL/hr (05/03/23 1900) sodium chloride 0.9%, 3-12 mL/hr, Last Rate: 3 mL/hr (05/05/2399) sodium chloride 0.9%, 3-12 mL/hr, Last Rate: 3 mL/hr (05/02/23 2300) Vitals: Temp: [37 ??C (98.6 ??F)-38.1 ??C (100.6 ??F)] 38 ??C (100.4 ??F) Pulse: [72-86] 77 BP: (88-129)/(57-85) 123/85 Resp: [9-17] 12 SpO2: [94 %-100 %] 100 % Arterial Line BP: (101-155)/(39-70) 139/70 FiO2 (%): [40 %-80 %] 40 % Fluid balance: I/O this shift: In: 566.9 [I.V.:256.9; NG/GT:210; IV Piggyback:100] Out: 3515 [Urine:3515] Intake/Output Summary (Last 24 hours) at 05/05/2023 0137 Last data filed at 05/05/2023 0100 Gross per 24 hour Intake 3937 ml Output 79902 ml Net -6438 ml Ventilator settings: Adult Vent Mode: Pressure support Ventilation FiO2 (%): 40 % Pressure Support (cm H2O): 12 cm H20 (05/05 42) Hemodynamic parameters: PAP: -- CVP: -- PCWP: -- CO: -- CI: -- SVO2: -- Pacemaker Overdrive Pacing: -- Cardiac Rhythm: Normal sinus rhythm (05/05 0000) Pacer Mode: -- Physical exam: Physical Exam: Neuro: intubated/sedated/PERRL Cardiac: RR, S1/S2, periphery warm, pulses palpable distally Resp: orally intubated, lungs CTAB w mechanical breath sounds GI: OGT in place, abdomen round, soft, absent bowel sounds : hutton w/ clear yellow urine Skin: pink, warm, dry, midline sternotomy incision open to air, C/D/I LTDA: ETT, RIJ Quad lumen, R radial a-line, PIV x3, Hutton, OGT Laboratory data: Recent Labs Lab Units 05/05/23 0012 05/04/23 0303 05/04/23 0120 05/03/23 0328 05/03/23 0010 WBC K/cumm 16.4* -- 13.5* -- 14.6* HEMOGLOBIN, POC g/dL -- 8.7* -- < > -- HEMOGLOBIN g/dL 9.4* -- 9.1* -- 10.7* HEMATOCRIT % 27.9* -- 25.2* -- 29.7* HEMATOCRIT POC % -- 26.0* -- < > -- PLATELETS K/cumm 132* -- 115* -- 121* < > = values in this interval not displayed. Recent Labs Lab Units 05/05/23 0012 05/04/23 0120 05/03/23 0010 SODIUM mmol/L 145 140 134* POTASSIUM PLASMA mmol/L 4.4 See Comment See Comment CHLORIDE mmol/L 106 109 106 CO2 mmol/L 30 23 18* BUN SERUM mg/dL 9 9 16 CREATININE mg/dL 1.14 1.38* 1.27 CALCIUM mg/dL 8.1* 7.3* 7.7* Recent Labs Lab Units 05/02/23 0410 05/01/23 0519 PROTIME (PT) sec 14.9* 13.7 INR 1.31* 1.20 APTT sec -- 34 Recent Labs Lab Units 05/04/23 2230 05/04/23 1123 05/04/23 0303 05/04/23 0120 PH ART 7.40 7.33* 7.34* 7.32* PCO2 ART mmHg 46* 44 -- 42 PO2 ART mmHg 101 177* -- 90 PO2 ARTERIAL POC mmHg -- -- 73* -- BASE EXC ART mmol/L 4 -2 -- -4 Review of the laboratory data shows: CT BODY OUTSIDE CONSULT 05/01/2023 Impression 1. Extension of the type B thoracic aortic aneurysm, terminates just above the bifurcation, with origins the left renal artery and celiac artery arising off the false lumen. No evidence of vascular compromise. The entry tear is not definitely visualized, it may be just proximal to the diaphragmatichiatus as this is where contrast within the false lumen is most dense. 2. Pseudofeces in the small bowel, without evidence of obstruction. This is of unknown clinical significance and is of uncertain etiology. Continued attention on follow-up imaging and correlation with symptomatology is recommended. Impression and Plan: Active problems/Diagnoses and Plans: Acute postoperative pain Returns to the unit intubated, sedated. - ketamine gtt, midaz prn - precedex gtt - resume prop gtt on TG normalized Acute type B aortic dissection Hypertension CT showed extension of the type B thoracic aortic aneurysm, terminates just above the bifurcation, with origins the left renal artery and celiac artery arising off the false lumen. - Vascular surgery following. OR on 05/02 for TEVAR Hgb >9, Plt >100, INR < 1.5 - Impulse control with SBP goal 100-120 and HR goal <60 - esmolol gtt dc'd / c/f tachyphylaxis, no changes in HR - weaning clevidipine gtt - carvedilol 50mg BID - started on metop 10 IV q6h prn, metop 100 BID per tube - lisinopril 5 x2 in the last 24h, daily lisinopril 10 per tube to start in the AM - q1h NV checks - Lactate as indicated Respiratory insufficiency requiring mechanical ventilation Expected postoperatively. History of desat and wheezing after administration of sugammadex and zofran in the OR prior to attempt to extubate. Required albuterol and epi pushes. BP stable throughout event. Lungs clear on arrival. Episode of desat resolved with recruitment breaths. - albuterol q4h prn - wean FiO2, CTM ABGs - will remain intubated o/n Adult Vent Mode: Pressure support Ventilation FiO2 (%): [40 %-80 %] 40 % PEEP/CPAP/EPAP (cm H2O): [7.5 cm H20] 7.5 cm H20 Pressure Support (cm H2O): [12 cm H20] 12 cm H20 MAP (cmH2O): [10-12] 12 - CXR w e/o improving volume overload, bibasilar atelectasis R>L, no ptx - continue bumex 2mg q6h, electrolyte repletion as indicated Obstructive sleep apnea - consider NPPV nightly once extubated Epistaxis Significant nose bleed in the OR requiring intra-op ENT c/s. DL performed, no other sources of bleeding visualized. ACT post protamine 149. - Packing in place - ENT following - Afrin BID prn, ocean spray tid - no other s/s bleeding #Acute blood loss anemia #Thrombocytopenia - Daily CBC #Fever - max 38.1 o/n - cont APAP q6h susan - UA, BCx x2 sent - ngtd - started on empiric susana/linezolid (05/04- - decreased precedex gtt dose - WBC 16.4, continue to monitor #Hypertriglyceridemia - TG 895 05/04, paused gtt, weaning clevidipine - TG 179 on 05/05. Restart propofol gtt once levels normalized ICU Standards of Care: Diet: Trickle feeds through SBFT DVT prophylaxis: SCDs, SQH PUD prophylaxis: famotidine while intubated Dispo: ICU Code status: Full code TDLA: ETT, R IJ Quad lumen, PIVx3, R radial a-line, Hutton, OGT Thea Zaabla MD PGY-3 Anesthesiology Cosigned by Carline Jerome MD at 05/05/2023 1:23 PM ELECTRO OPTICS ENGINEER TRO OPTICS ENGINEER TRO OPTICS ENGINEER Associated attestation - Carline Jerome MD - 05/05/2023 1:23 PM ELECTRO OPTICS ENGINEER Attending Documentation: I have seen and examined this critically ill patient on the day of service. I have reviewed and confirmed the history, physical exam, laboratory and radiologic data with the house staff as documentedin the ICU Resident note. I have reviewed and discussed my treatment plan with the ICU team and other medical/sap security consultant staff, making frequent assessments and decisions regarding this patient's complex medical care. Critical care was necessary to treat or prevent imminent or life-threatening deterioration of the following conditions: Active problems: Aortic dissection s/p stent starting at zone 1 and stenting of left subclavian. Postoperative respiratory failure Leukocytosis Mild thrombocytopenia Anemia Attending Impression / Plans: Wean off sedation for possible extubation. Cont carvedilol and lisinopril. PRN clevidipine as needed. Cont bumex for diuresis. Decrease dose to 2 mg q 8 hourly and consider holding evening dose, Awaiting bubble study to R/O PFO. However this seems less likely since he is no longer hypoxemic. Cont linezolid and meropenem (empirically). WBC remains elevated.Blood cultures negative to date. Obtain sputum culture prior to extubation. Mild anemia: cont to trend. Thrombocytopenia is mild and of no clinical concern. Cont to trend art line pressure and NIBP on left and right arm. Cont SQH for DVT prophylaxis. Update: Patient has been succesfully extubated. He has no further respiratory distress. BP control has beendifficult at times. Cont to uptitrate lisinopril and add diltiazem. Keep clevidipine for now for acute titration of hypertension. Cardiology consult (Dr Abarca) to follow and make recommendations regarding hypertension management in setting of recent aortic dissection. Carline Jerome MD * Darren Busby, RD - 05/04/2023 11:37 AM CST NUTRITION ASSESSMENT Nutrition Status: Patient does not meet ASPEN criteria for malnutrition at this time. REASON FOR ASSESSMENT: Screened at Nutrition Risk - Ventilator Support Encounter Date: 05/04/23 11:37 AM Admission Date: 05/01/2023 LOS: 3 days HPI: Patient is a 32 y.o. male with Type B aortic Dissection, now s/p TEVAR, L Subclavian Stent Placement (05/02). 05/04: Remains intubated d/t CXR c/f volume overload bibasilar atelectasis R>L , sedated on Dex for elevated TG, and diuresing with Bumex 2 mg Q6 hrs. Plan to start TF. Objective No past medical history on file. No past surgical history on file. Social History Tobacco Use Smoking status: Never Smokeless tobacco: Never Substance and Sexual Activity Drug use: Not on file Sexual activity: Not on file Alcohol Use: Not on file MEDICATION/LAB REVIEW: Scheduled Meds: acetaminophen, 1,000 mg, feeding tube, Q6H SUSAN albuterol HFA, 8 puff, inhalation, Q4H SUSAN (RT) aspirin, 81 mg, feeding tube, Daily bumetanide, 2 mg, intravenous, Q6H And potassium chloride, 20 mEq, feeding tube, Q6H carvediloL, 50 mg, feeding tube, BID chlorhexidine, 15 mL, swish & spit, BID docusate, 100 mg, feeding tube, BID famotidine, 20 mg, intravenous, Q12H SUSAN heparin, 5,000 Units, subcutaneous, Q8H SUSAN lidocaine, 2 patch, transdermal, Q24H linezolid, 600 mg, intravenous, Q12H SUSAN [START ON 05/05/2023] lisinopriL, 10 mg, feeding tube, Daily meropenem, 1,000 mg, intravenous, Q8H SUSAN [START ON 05/05/2023] polyethylene glycol, 17 g, feeding tube, Daily potassium chloride, 40 mEq, intravenous, Once senna, 8.8 mg, feeding tube, BID sodium chloride, 2 spray, each nostril, TID with meals sodium chloride 0.9%, 0.5-20 mL, intra-catheter, Q8H SUSAN Continuous Infusions: clevidipine, 0-32 mg/hr, Last Rate: 4 mg/hr (05/04/23 08) dexmedeTOMIDine, 0-1.5 mcg/kg/hr, Last Rate: 0.4 mcg/kg/hr (05/04/23 08) esmolol, 0-300 mcg/kg/min, Last Rate: 300 mcg/kg/min (05/04/23 1018) fentaNYL, 0-400 mcg/hr, Last Rate: 125 mcg/hr (05/04/23799) ketamine, 50 mg/hr, Last Rate: 50 mg/hr (05/04/23799) Lactated Ringer's, 10 mL/hr, Last Rate: 10 mL/hr (05/03/23 190) sodium chloride 0.9%, 3-12 mL/hr, Last Rate: 3 mL/hr (05/03/23 190) sodium chloride 0.9%, 3-12 mL/hr, Last Rate: 3 mL/hr (05/02/23 2300) PRN Meds: sodium chloride 0.9% sodium chloride 0.9% fentaNYL fentaNYL midazolam ondansetron oxymetazoline potassium chloride sodium chloride 0.9% Recent Labs Lab Units 05/04/23 0120 05/03/23 0010 05/02/23 2155 05/02/23 1600 05/02/23 1600 SODIUM mmol/L 140 134* 136 -- 134* POTASSIUM PLASMA mmol/L See Comment See Comment 4.5 -- See Comment CHLORIDE mmol/L 109 106 107 -- 103 CO2 mmol/L 23 18* 20* -- 16* BUN SERUM mg/dL 9 16 15 -- 15 CREATININE mg/dL 1.38* 1.27 1.36* -- 1.19 [id number] mL/min/1.73 m2 71 78 72 -- 84 CALCIUM mg/dL 7.3* 7.7* 7.6* -- 8.3* ALBUMIN g/dL -- -- -- -- 3.5 PHOSPHORUS PLASMA mg/dL 2.8 2.1* 3.5 < > -- MAGNESIUM mg/dL 2.0 1.9 1.8 -- -- < > = values in this interval not displayed. Recent Labs Lab Units 05/04/23 0748 05/04/23 0303 05/04/23 0120 05/03/23 1409 05/03/23 1107 05/03/23 0328 05/03/23 0010 GLUCOSE mg/dL -- -- 92 -- -- -- 118 POC GLUCOSE MONITOR mg/dL 99 115 -- 106 115 124 -- ALT Date Value Ref Range Status 05/02/2023 See Comment 7 - 55 Units/L Final Comment: Credited; Hemolyzed Specimen AST Date Value Ref Range Status 05/02/2023 See Comment 10 - 50 Units/L Final Comment: Credited; Hemolyzed Specimen Alk phos Date Value Ref Range Status 05/02/2023 59 40 - 130 Units/L Final Comment: Hemolyzed; result may be falsely decreased Lab Results Component Value Date TRIG 895 (H) 05/04/2023 NURSING ASSESSMENT: Last BM Date: (SPORT INTERN) Bowel Sounds (All Quadrants): Hypoactive Toni Scale Score: 11 Skin Integrity: Surgical incision [REMOVED] Pressure Ulcer/Pressure Injury 05/02/23 Mid-line Gluteal fold (horizontal junction between the thigh and buttock) Non-blanchanble erythema- Pressure Ulcer Status: Evolving Edema: Trace Minute Ventilation (L/min): 9.6 L/min Vital Signs BP: 108/45 Temp: 37.1 ??C (98.8 ??F) Pulse: 74 Resp: 15 SpO2: 99 % Intake/Output Summary (Last 24 hours) at 05/04/2023 1137 Last data filed at 05/04/2023 0800 Gross per 24 hour Intake 5233.95 ml Output 5255 ml Net -21.05 ml Adult Malnutrition Scoring Tool (MST) What diet do you follow at home?: regular Have You Recently Lost Weight Without Trying?: No Have you been eating poorly because of a decreased appetite?: No Malnutrition Screening Tool (MST) Score: 0 Anthropometrics Weight: 107.5 kg (236 lb 15.9 oz) Admission Weight : 107.5 kg Weight Change: 3.17 kg (6.99 lbs) IBW/kg (Calculated) : 72.6 kg Height: 175.3 cm (5' 9 ) Weight in (lb) to have BMI = 25: 168.9 BMI (Calculated): 35 Wt Readings from Last 10 Encounters: 05/01/23 107.5 kg (236 lb 15.9 oz) ESTIMATED NEEDS: Kcal/kg: (8896-5562 kcal (14-18 kcal/kg BW)). Type of Weight Used for Estimated Kcals: Current Total Protein Estimated Needs (gm): 101.64 Protein Needs Based on g/k.4 Type of Weight Used forEstimated Protein : [place] Total Fluid Estimated Needs: 1815 Fluid Needs Based on : 25 ml/kg Type of Weight Used for EstimatedFluid Needs: [place] Dietary Orders (From admission, onward) Start Ordered 05/04/23 1053 Diet, Tube Feeding No Tray Impact Peptide 1.5 Pedro (via OGT per pump continuous); 10 (mL/hr); 24 (hrs); 30 (mL); Water; Every 4 hours Diet effective now Comments: Once able to titrate; Increase by 10 mL Q4 hrs to goal of 45 mL/hr x24 hrs. Follow Aspiration precautions, elevate HOB Hold for GRV >500 mL Monitor BMP w/ Mg/Phos daily Question Answer Comment Tube Feeding Formula: Impact Peptide 1.5 Pedro via OGT per pump continuous Tube Feeding Continuous (mL/hr): 10 mL/hr Duration (hr): 24 hrs Tube Feeding Flush (mL): 30 mL Flush Type: Water Flush Frequency: Every 4 hours 05/04/23 1053 Allergies: Reviewed, NKFA IMPRESSION: RD screened pt at nutritional risk. He remains intubated, sedated with dex given TG 895 (05/04). Pt has OGT in place for enteral access, per CXR 05/03, A gastric tube courses below the diaphragm. Pt received 794 mL propofol in the last 24 hrs (873 kcal via lipid). I/O; +311, -6135 mL UOP BS are hypoactive, last BM was prior to admission. Note orders for Colace BID, miralax daily, and senna BID. Noted labs 05/04; Na 140, Blood K 4.2, BUN 9, Cr 1.38, Ca 7.3, Mg 2.0, and PO4 2.8. Pt was repleted with 240 mEq KCl and 100 mEq Sodium Bicarb in the last 24 hrs. BG/24 hrs; 124, 115, 106, 115, and 99 mg/dL. No insulin ordered. Pt presents at 236 lbs with trace edema and c/f fluid overload on CXR, receiving Bumex 2 mg Q6 hrs for diuresis and anticipate fluid-related weight loss. Pressure area to gluteal fold was healed. Wt Readings from Last 6 Encounters: 05/01/23 107.5 kg (236 lb 15.9 oz) ASPEN MALNUTRITION ASSESSMENT: N/A NUTRITION FOCUSED PHYSICAL EXAM: N/A NUTRITION DIAGNOSIS: Nutrition Diagnosis 1: Inadequate oral intake Related to: NPO status Evidenced by: Need for full tube feeding, Mechanical ventilation INTERVENTION(S): Summary: Communication, Enteral nutrition administration Pt is NPO w/ OGT in place for enteral nutrition support. Recommend Impact Peptide 1.5 via OGT; Initiate at 10 mL/hr. Once feasible to titrate; Increase by 10 mL Q4 hrs to goal of 45 mL/hr x24 hrs. Flush with 30 mL free water Q4 hrs to keep tube patent. Follow Aspiration precautions, elevate HOB Hold for GRV >500 mL Monitor BMP w/ Mg/Phos daily TF at goal would provide; 1,620 kcal (15 kcal/kg BW), 102 g P (1.4 g/kg IBW), 151 g CHO (6 g/hr), and 832 mL free water via formula. RD will continue to monitor plan of care, TF tolerance, BG and nutrition-related labs, BM, and weight changes for further nutrition intervention as indicated. GOAL(S): Adequate nutrition to meet estimated needs by next assessment, Tolerance of enteral feeding at goalrate MONITORING/EVALUATION: Blood glucoses, Diet advancement, Electrolyte changes, Hydration status, I/O, Labs, Plan of care, Stool patterns, TF tolerance, Weight changes, Swallow function Darren Busby MS, RD, CNSC, LDN [phone] Tube Skiver-Weekend: [phone] TRO OPTICS ENGINEER * Flex Parsons MD - 05/04/2023 7:30 AM CST Vascular Surgery Daily Progress Patient Name/MRN: Eriberto Chau [id number] Treatment Team: Vascular Surgery- Pager: [phone] Attending: Faustino Herrera MD Today's Date: 05/04/2023 Room/Bed: [id number] Admit Date: 05/01/2023 Code Status: Full Code Subjective Chief complaint: Type B aortic dissection Events During This Hospitalization: 05/02: TEVAR, L subclavian stent placement Events Over Last 24 Hours: - spontaneously moves extremities when sedation weaned - FiO2 80%, CXR improved after some diuresis; TTE w/ LVEF 40%, bubble study pending - Tmax 39.4 Objective Vitals: 24hr Min/Max: Temp Min: 37 ??C (98.6 ??F) Max: 39.4 ??C (102.9 ??F) Pulse Min: 73 Max: 93 BP Min: 108/45 Max: 114/44 Resp Min: 12 Max: 29 SpO2 Min: 91 % Max: 99 % Most Recent : Vitals: 05/04/23 0807 BP: Pulse: 74 Resp: 15 Temp: SpO2: 99% I/O last 2 completed shifts: In: 6496.1 [I.V.:5766.1; NG/GT:540; IV Piggyback:190] Out: 6185 [Urine:6135; Emesis/NG output:50] I/O this shift: In: 531.2 [I.V.:531.2] Out: 370 [Urine:370] Physical Exam: General: sedated Neuro: sedated, unable to assess Cardiac: regular rate and rhythm Pulses: 2+ and symmetric Palpable DP bilaterally, palpable L radial Lungs: FiO2 80%, symmetric chest rise on ventilator Abdomen: normal findings: soft, non-tender Lab/Radiology/Diagnostic Review: Laboratory review: Lab results in the last 12 hours: Recent Results (from the past 12 hour(s)) CBC without differential Collection Time: 05/04/23 1:20 AM Result Value Ref Range WBC 13.5 (H) 3.8 - 9.9 K/cumm Hgb 9.1 (L) 13.0 - 17.5 g/dL Hct 25.2 (L) 38.9 - 50.3 % Plt 115 (L) 150 - 400 K/cumm MPV 10.6 9.1 - 12.3 fL RBC 2.89 (L) 4.30 - 5.80 M/cumm MCV 87.2 81.3 - 96.4 fL MCH 31.5 27.1 - 33.3 pg MCHC 36.1 (H) 32.3 - 35.7 g/dL RDW CV 12.5 11.1 - 14.9 % RDW SD 40.1 35.7 - 48.1 fL NRBC abs 0.11 (H) 0.00 - 0.01 K/cumm Basic metabolic panel Collection Time: 05/04/23 1:20 AM Result Value Ref Range Sodium 140 135 - 145 mmol/L Potassium, pl See Comment 3.3 - 4.9 mmol/L Chloride 109 97 - 110 mmol/L CO2 23 22 - 32 mmol/L Anion gap 8 2 - 15 mmol/L BUN 9 6 - 25 mg/dL Creatinine 1.38 (H) 0.80 - 1.30 mg/dL Glucose 92 70 - 199 mg/dL Calcium 7.3 (L) 8.5 - 10.3 mg/dL Magnesium Collection Time: 05/04/23 1:20 AM Result Value Ref Range Magnesium 2.0 1.4 - 2.5 mg/dL Phosphorus Collection Time: 05/04/23 1:20 AM Result Value Ref Range Phosphorus, pl 2.8 2.3 - 4.5 mg/dL Triglycerides Collection Time: 05/04/23 1:20 AM Result Value Ref Range Triglycerides 895 (H) <=149 mg/dL Blood gas, arterial Collection Time: 05/04/23 1:20 AM Result Value Ref Range pH, Art 7.32 (L) 7.35 - 7.45 PCO2, Arterial 42 35 - 45 mmHg PO2, Arterial 90 83 - 108 mmHg HCO3 Art (Calculated) 22 20 - 30 mmol/L BE, art -4 mmol/L O2 Sat Art (Measured) 97 (H) 90 - 95 % eGFR Collection Time: 05/04/23 1:20 AM Result Value Ref Range eGFR 71 >=60 mL/min/1.73 m2 Urinalysis reflex to microscopic Collection Time: 05/04/23 2:14 AM Result Value Ref Range Color, ur Straw Yellow Clarity, ur Clear Clear Specific gravity, ur 1.011 1.003 - 1.030 pH, urine 5.5 Protein, ur ql Trace Negative Glucose, ur ql Negative Negative Ketones, ur Negative Negative Bilirubin, ur Negative Negative Blood, ur 3+ (A) Negative Urobilinogen, ur <2.0 <2.0 mg/dL Nitrite, ur Negative Negative Leukocyte esterase, ur Negative Negative UA reflex comment Reflex to microscopic UA will be performed. Urinalysis, microscopic only Collection Time: 05/04/23 2:14 AM Result Value Ref Range WBC, ur 0-5 0 - 5 /HPF RBC, ur >50 (A) 0 - 2 /HPF Mucous, ur Present (A) Hyaline casts, ur 1-5 0 - 10 /LPF POC Blood Gas and Chemistries, Arterial - Collection Time: 05/04/23 3:03 AM Result Value Ref Range pH, Art POC 7.34 (L) 7.35 - 7.45 pCO2, Art POC 38 35 - 45 mmHg pO2, Art POC 73 (L) 83 - 108 mmHg Na, POC 141 135 - 145 mmol/L K POC 3.5 3.3 - 4.9 mmol/L Cl, POC 112 (H) 97 - 110 mmol/L Ionized Ca, POC 4.33 (L) 4.50 - 5.10 mg/dL Glucose, POC 115 70 - 199 mg/dL Lactate, POC 0.8 0.7 - 2.2 mmol/L SO2 (natalia) arterial 97 (H) 90 - 95 % Base excess, POC -4.8 mmol/L HCO3, Art POC 20 20 - 30 mmol/L Hct, POC 26.0 (L) 41.4 - 51.6 % O2 Sat, Art POC (Calc) 94 % Total Hb, POC 8.7 (L) 13.8 - 17.2 g/dL POCT glucose Collection Time: 05/04/23 7:48 AM Result Value Ref Range Glucose, POC 99 70 - 199 mg/dL Assessment/Plan Principal Problem: Dissection of aorta, unspecified portion of aorta (HCC) Active Problems: Dissection of thoracoabdominal aorta (CMS/HCC) (HCC) Problem List Cardiac and Vasculature * (Principal) Dissection of aorta, unspecified portion of aorta (HCC) Current Assessment & Plan 32y/o male with uncontrolled HTN who presented to an OSH ER with acute onset shortness of breath, chest pain and back pain. 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 He was transferred to [facility] for further evaluation and treatment. Here, he was seen by vascular surgery and admitted to the CTICU for impulse control. He had recurrent worsening pain and a repeat CTA this morning. This showed ???interval cranial propagation of a type B thoracic aortic dissection which now extends from approximately zone 3 to theleft common iliac artery; no change in aortic caliber; this dissection may originate in the midthoracic aorta, or fenestration is present at the level of T4; increasing fat stranding about the aorticarch and great vessels, likely reactive in the setting of dissection propagation, no extraluminal contrast present to suggest aortic rupture?? , for which CTS was consulted. CTA reviewed with Daniel Balderas, and Mesha. All feel these findings not to be telephone service representative of a type a dissection, therefore no urgent cardiac surgery is recommended. However, he is continuing to have significant pain despite BP control and pain medications, in addition to the propagationof the dissection. Recommend reaching back out to vascular surgery to consider a vascular intervention. I have called the on-call vascular fellow and left a voicemail. Echo ordered stat. This showed LVEF of 41%, dilated atria, dilated IVC, normal aortic root size, nopericardial effusion. As above, recommend following up with vascular surgery. Please get stat chest abdomen pelvis CTA if any clinical or neurological changes. Continue impulse control. Consider cardiology consult in the setting of difficult to control, longstanding hypertension and findings of HFrEF with LVEF of 41%. Relevant Orders Critical Care (Completed) Central Line (Completed) Dissection of thoracoabdominal aorta (CMS/HCC) (HCC) Relevant Orders CV Hybrid Room (Default Orderable) (Completed) 32 yo M who presented with Type B aortic dissection with worsening pain, now s/p TEVAR and L subclavian artery stent. Hemodynamically doing well, but from a respiratory perspective on a significant amount of support. - Continue q1h lower extremity neurovascular checks - Goal SBP 100-120 - Hgb > 9 - wean respiratory support per ICU, consider respiratory panel Flex Parsons MD, MSc [phone] For patients or family members viewing this note through [employer] programs: This note was written as a [...] care. Cosigned by Faustino Herrera MD at 05/05/2023 12:29 PM ELECTRO OPTICS ENGINEER TRO OPTICS ENGINEER TRO OPTICS ENGINEER * Thea Rizzo MD - 05/04/2023 12:[address] ICU Daily Progress Shifts: MD Shift Options: CTI Blue 3 PM Subjective Patient is a 32 y.o. male admitted to the hospital on 05/01/2023 4:58 AM with/following: Type B Aortic dissection ICU events 05/02: TEVAR 05/03: R IJ CVC Overnight events: 05/03 AM: -diuresis (lasix 40mg x2, then gtt @ 10) for hypoxemia, pulm edema -increase dose carvedilol (50mg), labetalol 40 IV, lisinopril 5, wean clevidipine for possible shunt -TTE with bubble -start ASA -2 amp bicarb for NAGMA 05/03 PM - bumex 2mg q6h - R IJ CVC - fever to 39.3C: BCx x2; susana/linezolid - esmolol 2x concentraded, metop x2, labetalol prn to 40 Objective Medications: Scheduled Meds:acetaminophen, 1,000 mg, feeding tube, Q6H SUSAN albuterol HFA, 8 puff, inhalation, Q4H SUSAN (RT) aspirin, 81 mg, feeding tube, Daily bumetanide, 2 mg, intravenous, Q6H SUSAN carvediloL, 50 mg, feeding tube, BID chlorhexidine, 15 mL, swish & spit, BID docusate sodium, 100 mg, oral, BID Or docusate, 100 mg, feeding tube, BID famotidine, 20 mg, intravenous, Q12H SUSAN heparin, 5,000 Units, subcutaneous, Q8H SUSAN lidocaine, 2 patch, transdermal, Q24H linezolid, 600 mg, intravenous, Q12H SUSAN lisinopriL, 5 mg, feeding tube, Daily meropenem, 2,000 mg, intravenous, Q8H SUSAN polyethylene glycol, 17 g, oral, Daily potassium chloride, 40 mEq, intravenous, Q4H senna, 1 tablet, oral, BID Or senna, 8.8 mg, feeding tube, BID sodium chloride, 2 spray, each nostril, TID with meals sodium chloride 0.9%, 0.5-20 mL, intra-catheter, Q8H [facility] Continuous Infusions:clevidipine, 0-32 mg/hr, Last Rate: 6 mg/hr (05/04/2341) dexmedeTOMIDine, 0-1.5 mcg/kg/hr, Last Rate: 0.4 mcg/kg/hr (05/04/23) esmolol, 0-300 mcg/kg/min, Last Rate: 50 mcg/kg/min (05/04/2326) esmolol, 0-300 mcg/kg/min, Last Rate: 300 mcg/kg/min (05/03/232199) fentaNYL, 0-400 mcg/hr, Last Rate: 100 mcg/hr (05/04/23) [Held by Provider] furosemide, 10 mg/hr Lactated Ringer's, 10 mL/hr, Last Rate: 10 mL/hr (05/03/231899) propofol, 0-80 mcg/kg/min, Last Rate: 60 mcg/kg/min (05/04/2326) sodium chloride 0.9%, 3-12 mL/hr, Last Rate: 3 mL/hr (05/03/231899) sodium chloride 0.9%, 3-12 mL/hr, Last Rate: 3 mL/hr (05/02/232299) Vitals: Temp: [36.4 ??C (97.5 ??F)-39.4 ??C (102.9 ??F)] 37.6 ??C (99.6 ??F) Pulse: [64-93] 82 BP: (108-123)/(41-50) 108/45 Resp: [14-29] 14 SpO2: [91 %-99 %] 96 % Arterial Line BP: (104-126)/(36-54) 112/46 FiO2 (%): [60 %-100 %] 70 % Fluid balance: I/O this shift: In: 1485.3 [I.V.:1325.3; NG/GT:160] Out: 2575 [Urine:2575] Intake/Output Summary (Last 24 hours) at 05/04/2023 0236 Last data filed at 05/04/2023 0200 Gross per 24 hour Intake 6819.96 ml Output 5845 ml Net 974.96 ml Ventilator settings: Adult Vent Mode: Pressure support Ventilation FiO2 (%): 70 % Pressure Support (cm H2O): 12 cm H20 (05/03 2313-05/04) Hemodynamic parameters: PAP: -- CVP: -- PCWP: -- CO: -- CI: -- SVO2: -- Pacemaker Overdrive Pacing: -- Cardiac Rhythm: Normal sinus rhythm (05/04) Pacer Mode: -- Physical exam: Physical Exam: Neuro: intubated/sedated/PERRL Cardiac: RR, S1/S2, periphery warm, pulses palpable distally Resp: orally intubated, lungs CTAB w mechanical breath sounds GI: OGT in place, abdomen round, soft, absent bowel sounds : hutton w/ clear yellow urine Skin: pink, warm, dry, midline sternotomy incision open to air, C/D/I LTDA: ETT, RIJ Quad lumen, R radial a-line, PIV x3, Hutton, OGT Laboratory data: Recent Labs Lab Units 05/04/23 0120 05/03/23 1409 05/03/23 1107 05/03/23 0328 05/03/23 0010 05/02/23 2213 05/02/23 2133 WBC K/cumm 13.5* -- -- -- 14.6* -- 12.4* HEMOGLOBIN, POC g/dL -- 9.4* 9.7* < > -- < > -- HEMOGLOBIN g/dL 9.1* -- -- -- 10.7* -- 9.9* HEMATOCRIT % 25.2* -- -- -- 29.7* -- 28.8* HEMATOCRIT POC % -- 28.0* 29.0* < > -- < > -- PLATELETS K/cumm 115* -- -- -- 121* -- 105* < > = values in this interval not displayed. Recent Labs Lab Units 05/03/23 0010 05/02/23 2155 05/02/23 1600 SODIUM mmol/L 134* 136 134* POTASSIUM PLASMA mmol/L See Comment 4.5 See Comment CHLORIDE mmol/L 106 107 103 CO2 mmol/L 18* 20* 16* BUN SERUM mg/dL 16 15 15 CREATININE mg/dL 1.27 1.36* 1.19 CALCIUM mg/dL 7.7* 7.6* 8.3* Recent Labs Lab Units 05/02/23 0410 05/01/23 0519 PROTIME (PT) sec 14.9* 13.7 INR 1.31* 1.20 APTT sec -- 34 Recent Labs Lab Units 05/04/23 0120 05/03/23 20305/03/23 1750 PH ART 7.32* 7.37 7.38 PCO2 ART mmHg 42 37 36 PO2 ART mmHg 90 126* 125* BASE EXC ART mmol/L -4 -3 -4 Review of the laboratory data shows: CT BODY OUTSIDE CONSULT 05/01/2023 Impression 1. Extension of the type B thoracic aortic aneurysm, terminates just above the bifurcation, with origins the left renal artery and celiac artery arising off the false lumen. No evidence of vascular compromise. The entry tear is not definitely visualized, it may be just proximal to the diaphragmatichiatus as this is where contrast within the false lumen is most dense. 2. Pseudofeces in the small bowel, without evidence of obstruction. This is of unknown clinical significance and is of uncertain etiology. Continued attention on follow-up imaging and correlation with symptomatology is recommended. Impression and Plan: Active problems/Diagnoses and Plans: Acute postoperative pain Returns to the unit intubated, sedated. - prop gtt, fent gtt while intubated - precedex gtt Acute type B aortic dissection Hypertension CT showed extension of the type B thoracic aortic aneurysm, terminates just above the bifurcation, with origins the left renal artery and celiac artery arising off the false lumen. - Vascular surgery following. OR on 12/4 for TEVAR Hgb >9, Plt >100, INR < 1.5 - Impulse control with SBP goal 100-120 and HR goal <60 - Continue esmolol 2x concentrated gtt and clevidipine gtt - carvedilol 50mg BID - spotted with metop x2 o/m - labetalol 40 IV prn q2h - q1h NV checks - Lactate as indicated Respiratory insufficiency requiring mechanical ventilation Expected postoperatively. History of desat and wheezing after administration of sugammadex and zofran in the OR prior to attempt to extubate. Required albuterol and epi pushes. BP stable throughout event. Lungs clear on arrival. Episode of desat resolved with recruitment breaths. - albuterol q4h prn - wean FiO2, CTM ABGs - will remain intubated o/n Adult Vent Mode: Pressure support Ventilation FiO2 (%): [60 %-100 %] 70 % S RR: [20] 20 S VT: [550 mL] 550 mL PEEP/CPAP/EPAP (cm H2O): [5 cm H20-12 cm H20] 7.5 cm H20 Pressure Support (cm H2O): [12 cm H20] 12 cm H20 MAP (cmH2O): [9.1-17] 11 - CXR c/f volume overload bibasilar atelectasis R>L, no ptx - bumex 2mg q6h with good response - electrolyte repletion as indicated Obstructive sleep apnea - consider BiPAP nightly once extubated Epistaxis Significant nose bleed in the OR requiring intra-op ENT c/s. DL performed, no other sources of bleeding visualized. ACT post protamine 149. - Packing in place - ENT following - Afrin BID prn, ocean spray tid - no other s/s bleeding #Acute blood loss anemia - Daily CBC #Fever - max 39.3 o/n - APAP q6h susan - BCx x2, UA sent - started on empiric susana/linezolid - decreased precedex gtt dose - WBC 13.5 (14.6), continue to monitor ICU Standards of Care: Diet: NPO DVT prophylaxis: SCDs, SQH PUD prophylaxis: famotidine while intubated Dispo: ICU Code status: Full code TDLA: ETT, R IJ Quad lumen, PIVx3, R radial a-line, Hutton, OGT Thea Zabala MD PGY-3 Anesthesiology Cosigned by Carline Jerome MD at 05/04/2023 9:26 AM ELECTRO OPTICS ENGINEER TRO OPTICS ENGINEER TRO OPTICS ENGINEER Associated attestation - Carline Jerome MD - 05/04/2023 9:26 AM ELECTRO OPTICS ENGINEER Attending Documentation: I have seen and examined this critically ill patient on the day of service. I have reviewed and confirmed the history, physical exam, laboratory and radiologic data with the house staff as documentedin the ICU Resident note. I have reviewed and discussed my treatment plan with the ICU team and other medical/sap security consultant staff, making frequent assessments and decisions regarding this patient's complex medical care. Critical care was necessary to treat or prevent imminent or life-threatening deterioration of the following conditions: Active problems: Aortic dissection s/p stent starting at zone 1 and stenting of left subclavian. Postoperative respiratory failure Leukocytosis Mild thrombocytopenia Headache. Anemia Attending Impression / Plans: Concern for esmolol tachyphylaxis. Will give 10 mg IV metoprolol now and assess esmolol needs. Cont diuresis with bumex. CXR cont to show pulmonary edema but CXR is improving. Cont low dose Precedex with PRN midazolam and ketamine. Resume propofol once Triglycerides have normalized. Awaiting TTE with bubble study to evaluate for possible PFO. Hypoxemia could also be related to shunting with clevidipine. Mild anemia: cont to follow. No active bleeding seen. Cont empiric antibiotics: All cultures remains negative thus far. Mild thrombocytopenia: no clinical concern. Cont SQH for DVT prophylaxis. Carline Jerome MD * Timmy Rosales - 05/03/2023 3:56 PM CST Fr Timmy Rosales [phone] 05/03/23 1500 Time Spent Start Time 1210 Stop Time 1220 Time Calculation (min) 10 min Patient Spiritual Assessment Spirituality Assessed Yes Rastafarian Affiliation Mu-Ism Active in Synagogue Yes Spiritual Needs Prayer Clinical Encounter Type Visited With Patient and family together Response Type Continuing visit Routine Visit Follow-up Continue Visiting Yes Reason for visit Sacramental;Support Outcomes and Progress Aligning care with patient's values Achieved Preserve dignity and respect Achieved Demonstrating care and respect Achieved Interventions Interventions Active listening;Offer emotional support;Offer spiritual/alevism support;Prayer (Benediction) TRO OPTICS ENGINEER * Flex Parsons MD - 05/03/2023 6:24 AM CST Vascular Surgery Daily Progress Patient Name/MRN: Eriberto Chau [id number] Treatment Team: Vascular Surgery- Pager: [phone] Attending: Alonzo Duncan MD Today's Date: 05/03/2023 Room/Bed: [id number] Admit Date: 05/01/2023 Code Status: Full Code Subjective Chief complaint: Type B aortic dissection Events During This Hospitalization: 05/02: TEVAR, L subclavian stent placement Events Over Last 24 Hours: - Kept intubated post procedure due to significant epistaxis - ON esmolol 300 mcg/kg/min and clevidipine 32 mg, with SBPs in 120s and HR in 60s - FiO2 60%, PEEP 12 Objective Vitals: 24hr Min/Max: Temp Min: 36.6 ??C (97.9 ??F) Max: 36.9 ??C (98.5 ??F) Pulse Min: 59 Max: 75 BP Min: 94/56 Max: 116/53 Resp Min: 11 Max: 20 SpO2 Min: 86 % Max: 99 % Most Recent : Vitals: 05/03/23 0500 BP: Pulse: 67 Resp: 20 Temp: SpO2: 95% I/O last 2 completed shifts: In: 6541 [I.V.:6541] Out: 1175 [Urine:1165; Blood:10] I/O this shift: In: 4931.2 [I.V.:4231.2; NG/GT:80; IV Piggyback:620] Out: 565 [Urine:515; Emesis/NG output:50] Physical Exam: General: sedated Neuro: sedated, unable to assess Cardiac: regular rate and rhythm Pulses: 2+ and symmetric Palpable DP bilaterally, palpable L radial Lungs: FiO2 60%, symmetric chest rise on ventilator Abdomen: normal findings: soft, non-tender Lab/Radiology/Diagnostic Review: Laboratory review: Lab results in the last 12 hours: Recent Results (from the past 12 hour(s)) POC Blood Gas and Chemistries, Arterial - Collection Time: 05/02/23 9:29 PM Result Value Ref Range pH, Art POC 7.27 (L) 7.35 - 7.45 pCO2, Art POC 41 35 - 45 mmHg pO2, Art POC 56 (L) 83 - 108 mmHg Na, POC 137 135 - 145 mmol/L K POC 4.0 3.3 - 4.9 mmol/L Cl, POC 111 (H) 97 - 110 mmol/L Ionized Ca, POC 4.67 4.50 - 5.10 mg/dL Glucose, POC 101 70 - 199 mg/dL Lactate, POC 1.0 0.7 - 2.2 mmol/L SO2 (natalia) arterial 89 (L) 90 - 95 % Base excess, POC -7.6 mmol/L HCO3, Art POC 19 (L) 20 - 30 mmol/L Hct, POC 30.0 (L) 41.4 - 51.6 % O2 Sat, Art POC (Calc) 84 % Total Hb, POC 9.9 (L) 13.8 - 17.2 g/dL CBC without differential Collection Time: 05/02/23 9:33 PM Result Value Ref Range WBC 12.4 (H) 3.8 - 9.9 K/cumm Hgb 9.9 (L) 13.0 - 17.5 g/dL Hct 28.8 (L) 38.9 - 50.3 % Plt 105 (L) 150 - 400 K/cumm MPV 10.1 9.1 - 12.3 fL RBC 3.18 (L) 4.30 - 5.80 M/cumm MCV 90.6 81.3 - 96.4 fL MCH 31.1 27.1 - 33.3 pg MCHC 34.4 32.3 - 35.7 g/dL RDW CV 12.4 11.1 - 14.9 % RDW SD 40.8 35.7 - 48.1 fL NRBC abs 0.03 (H) 0.00 - 0.01 K/cumm Phosphorus Collection Time: 05/02/23 9:55 PM Result Value Ref Range Phosphorus, pl 3.5 2.3 - 4.5 mg/dL Basic metabolic panel Collection Time: 05/02/23 9:55 PM Result Value Ref Range Sodium 136 135 - 145 mmol/L Potassium, pl 4.5 3.3 - 4.9 mmol/L Chloride 107 97 - 110 mmol/L CO2 20 (L) 22 - 32 mmol/L Anion gap 9 2 - 15 mmol/L BUN 15 6 - 25 mg/dL Creatinine 1.36 (H) 0.80 - 1.30 mg/dL Glucose 105 70 - 199 mg/dL Calcium 7.6 (L) 8.5 - 10.3 mg/dL Magnesium Collection Time: 05/02/23 9:55 PM Result Value Ref Range Magnesium 1.8 1.4 - 2.5 mg/dL Calcium, ionized Collection Time: 05/02/23 9:55 PM Result Value Ref Range Calcium, Ionized 4.61 4.50 - 5.10 mg/dL eGFR Collection Time: 05/02/23 9:55 PM Result Value Ref Range eGFR 72 >=60 mL/min/1.73 m2 POC Blood Gas and Chemistries, Arterial - Collection Time: 05/02/23 10:13 PM Result Value Ref Range pH, Art POC 7.29 (L) 7.35 - 7.45 pCO2, Art POC 35 35 - 45 mmHg pO2, Art POC 68 (L) 83 - 108 mmHg Na, POC 136 135 - 145 mmol/L K POC 3.9 3.3 - 4.9 mmol/L Cl, POC 111 (H) 97 - 110 mmol/L Ionized Ca, POC 4.56 4.50 - 5.10 mg/dL Glucose, POC 105 70 - 199 mg/dL Lactate, POC 1.1 0.7 - 2.2 mmol/L SO2 (natalia) arterial 95 90 - 95 % Base excess, POC -9.0 mmol/L HCO3, Art POC 17 (L) 20 - 30 mmol/L Hct, POC 29.0 (L) 41.4 - 51.6 % O2 Sat, Art POC (Calc) 91 % Total Hb, POC 9.8 (L) 13.8 - 17.2 g/dL POC Blood Gas and Chemistries, Arterial - Collection Time: 05/02/23 11:16 PM Result Value Ref Range pH, Art POC 7.34 (L) 7.35 - 7.45 pCO2, Art POC 32 (L) 35 - 45 mmHg pO2, Art POC 70 (L) 83 - 108 mmHg Na, POC 135 135 - 145 mmol/L K POC 4.1 3.3 - 4.9 mmol/L Cl, POC 110 97 - 110 mmol/L Ionized Ca, POC 4.68 4.50 - 5.10 mg/dL Glucose, POC 117 70 - 199 mg/dL Lactate, POC 0.9 0.7 - 2.2 mmol/L SO2 (natalia) arterial 96 (H) 90 - 95 % Base excess, POC -7.6 mmol/L HCO3, Art POC 17 (L) 20 - 30 mmol/L Hct, POC 31.0 (L) 41.4 - 51.6 % O2 Sat, Art POC (Calc) 93 % Total Hb, POC 10.4 (L) 13.8 - 17.2 g/dL CBC without differential Collection Time: 05/03/23 12:10 AM Result Value Ref Range WBC 14.6 (H) 3.8 - 9.9 K/cumm Hgb 10.7 (L) 13.0 - 17.5 g/dL Hct 29.7 (L) 38.9 - 50.3 % Plt 121 (L) 150 - 400 K/cumm MPV 10.6 9.1 - 12.3 fL RBC 3.38 (L) 4.30 - 5.80 M/cumm MCV 87.9 81.3 - 96.4 fL MCH 31.7 27.1 - 33.3 pg MCHC 36.0 (H) 32.3 - 35.7 g/dL RDW CV 12.4 11.1 - 14.9 % RDW SD 39.9 35.7 - 48.1 fL NRBC abs 0.00 0.00 - 0.01 K/cumm Basic metabolic panel Collection Time: 05/03/23 12:10 AM Result Value Ref Range Sodium 134 (L) 135 - 145 mmol/L Potassium, pl See Comment 3.3 - 4.9 mmol/L Chloride 106 97 - 110 mmol/L CO2 18 (L) 22 - 32 mmol/L Anion gap 10 2 - 15 mmol/L BUN 16 6 - 25 mg/dL Creatinine 1.27 0.80 - 1.30 mg/dL Glucose 118 70 - 199 mg/dL Calcium 7.7 (L) 8.5 - 10.3 mg/dL Magnesium Collection Time: 05/03/23 12:10 AM Result Value Ref Range Magnesium 1.9 1.4 - 2.5 mg/dL Phosphorus Collection Time: 05/03/23 12:10 AM Result Value Ref Range Phosphorus, pl 2.1 (L) 2.3 - 4.5 mg/dL Lactate Collection Time: 05/03/23 12:10 AM Result Value Ref Range Lactate 1.0 0.7 - 2.0 mmol/L Blood gas, arterial Collection Time: 05/03/23 12:10 AM Result Value Ref Range pH, Art 7.35 7.35 - 7.45 PCO2, Arterial 32 (L) 35 - 45 mmHg PO2, Arterial 110 (H) 83 - 108 mmHg HCO3 Art (Calculated) 18 (L) 20 - 30 mmol/L BE, art -7 mmol/L O2 Sat Art (Measured) 98 (H) 90 - 95 % Fibrinogen Collection Time: 05/03/23 12:10 AM Result Value Ref Range Fibrinogen 274 170 - 400 mg/dL eGFR Collection Time: 05/03/23 12:10 AM Result Value Ref Range eGFR 78 >=60 mL/min/1.73 m2 Blood gas, arterial Collection Time: 05/03/23 2:08 AM Result Value Ref Range pH, Art 7.34 (L) 7.35 - 7.45 PCO2, Arterial 32 (L) 35 - 45 mmHg PO2, Arterial 120 (H) 83 - 108 mmHg HCO3 Art (Calculated) 18 (L) 20 - 30 mmol/L BE, art -8 mmol/L O2 Sat Art (Measured) 99 (H) 90 - 95 % Lactate Collection Time: 05/03/23 2:08 AM Result Value Ref Range Lactate 1.2 0.7 - 2.0 mmol/L POC Blood Gas and Chemistries, Arterial - Collection Time: 05/03/23 3:28 AM Result Value Ref Range pH, Art POC 7.34 (L) 7.35 - 7.45 pCO2, Art POC 28 (L) 35 - 45 mmHg pO2, Art POC 81 (L) 83 - 108 mmHg Na, POC 135 135 - 145 mmol/L K POC 4.2 3.3 - 4.9 mmol/L Cl, POC 109 97 - 110 mmol/L Ionized Ca, POC 5.30 (H) 4.50 - 5.10 mg/dL Glucose, POC 124 70 - 199 mg/dL Lactate, POC 1.0 0.7 - 2.2 mmol/L SO2 (natalia) arterial 98 (H) 90 - 95 % Base excess, POC -9.4 mmol/L HCO3, Art POC 15 (L) 20 - 30 mmol/L Hct, POC 32.0 (L) 41.4 - 51.6 % O2 Sat, Art POC (Calc) 95 % Total Hb, POC 10.6 (L) 13.8 - 17.2 g/dL Assessment/Plan Principal Problem: Dissection of aorta, unspecified portion of aorta (HCC) Active Problems: Dissection of thoracoabdominal aorta (CMS/HCC) (HCC) Problem List Cardiac and Vasculature * (Principal) Dissection of aorta, unspecified portion of aorta (HCC) - Primary Current Assessment & Plan 32y/o male with uncontrolled HTN who presented to an OSH ER with acute onset shortness of breath, chest pain and back pain. 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 He was transferred to [facility] for further evaluation and treatment. Here, he was seen by vascular surgery and admitted to the CTICU for impulse control. He had recurrent worsening pain and a repeat CTA this morning. This showed ???interval cranial propagation of a type B thoracic aortic dissection which now extends from approximately zone 3 to theleft common iliac artery; no change in aortic caliber; this dissection may originate in the midthoracic aorta, or fenestration is present at the level of T4; increasing fat stranding about the aorticarch and great vessels, likely reactive in the setting of dissection propagation, no extraluminal contrast present to suggest aortic rupture?? , for which CTS was consulted. CTA reviewed with Daniel Balderas, and Mesha. All feel these findings not to be telephone service representative of a type a dissection, therefore no urgent cardiac surgery is recommended. However, he is continuing to have significant pain despite BP control and pain medications, in addition to the propagationof the dissection. Recommend reaching back out to vascular surgery to consider a vascular intervention. I have called the on-call vascular fellow and left a voicemail. Echo ordered stat. This showed LVEF of 41%, dilated atria, dilated IVC, normal aortic root size, nopericardial effusion. As above, recommend following up with vascular surgery. Please get stat chest abdomen pelvis CTA if any clinical or neurological changes. Continue impulse control. Consider cardiology consult in the setting of difficult to control, longstanding hypertension and findings of HFrEF with LVEF of 41%. Relevant Orders Critical Care (Completed) Dissection of thoracoabdominal aorta (CMS/HCC) (HCC) Relevant Orders CV Hybrid Room (Default Orderable) (Completed) 32 yo M who presented with Type B aortic dissection with worsening pain, now s/p TEVAR and L subclavian artery stent. Hemodynamically doing well, but from a respiratory perspective on a significant amount of support. - Continue q1h lower extremity neurovascular checks - Goal SBP 100-120 - HR < 60 - wean respiratory support per ICU Flex Parsons MD, MSc [phone] For patients or family members viewing this note through [employer] programs: This note was written as a [...] care. Cosigned by Faustino Herrera MD at 05/03/2023 8:06 AM ELECTRO OPTICS ENGINEER TRO OPTICS ENGINEER TRO OPTICS ENGINEER * Thea Rizzo MD - 05/03/2023 12:[address] ICU Daily Progress Shifts: MD Shift Options: CTI Blue 3 PM Subjective Patient is a 32 y.o. male admitted to the hospital on 05/01/2023 4:58 AM with/following: Type B Aortic dissection ICU events - 05/02: TEVAR Overnight events: 05/02 AM - Impulse control with SBP goal <100 and HR goal <70 - Dissection expanding superiorly - TEVAR with vascular - Lido gtt - Coreg to 25 BID 12/4 PM - s/p TEVAR w vascular - ENT c/s intra-op for epistaxis - Mag, K, Ca - sBP 100-120, HR < 60 Objective Medications: Scheduled Meds:albuterol HFA, 8 puff, inhalation, Q4H SUSAN (RT) carvediloL, 25 mg, oral, BID with meals (bkfst, dinner) ceFAZolin, 2,000 mg, intravenous, Q8H docusate sodium, 100 mg, oral, BID Or docusate, 100 mg, feeding tube, BID famotidine, 20 mg, intravenous, Q12H SUSAN lidocaine, 2 patch, transdermal, Q24H magnesium sulfate, 2 g, intravenous, Once polyethylene glycol, 17 g, oral, Daily senna, 1 tablet, oral, BID Or senna, 8.8 mg, feeding tube, BID sodium chloride 0.9%, 0.5-20 mL, intra-catheter, Q8H SUSAN Continuous Infusions:clevidipine, 0-32 mg/hr, Last Rate: 32 mg/hr (05/03/23 0015) esmolol, 0-300 mcg/kg/min, Last Rate: 300 mcg/kg/min (05/03/23 0107) Lactated Ringer's, 10 mL/hr, Last Rate: 10 mL/hr (05/03/23 0000) lidocaine, 1 mg/kg/hr ([place]), Last Rate: Stopped (05/02/23 1632) propofol, 0-50 mcg/kg/min, Last Rate: 50 mcg/kg/min (05/03/23 0000) sodium chloride 0.9%, 3-12 mL/hr, Last Rate: 3 mL/hr (05/03/23 0000) sodium chloride 0.9%, 3-12 mL/hr, Last Rate: 3 mL/hr (05/02/23 2300) Vitals: Temp: [36.7 ??C (98.1 ??F)-36.9 ??C (98.5 ??F)] 36.7 ??C (98.1 ??F) Pulse: [59-75] 60 BP: (94-120)/(45-73) 106/54 Resp: [11-20] 20 SpO2: [86 %-100 %] 98 % Arterial Line BP: (96-140)/(41-65) 116/57 FiO2 (%): [40 %-100 %] 80 % Fluid balance: I/O this shift: In: 2876.2 [I.V.:2746.2; NG/GT:80; IV Piggyback:50] Out: 360 [Urine:310; Emesis/NG output:50] Intake/Output Summary (Last 24 hours) at 05/03/2023 0111 Last data filed at 05/03/2023 0000 Gross per 24 hour Intake 7711.25 ml Output 1535 ml Net 6176.25 ml Ventilator settings: Adult Vent Mode: Pressure regulated volume control/assist control/VC+ FiO2 (%): 80 % (05/02 2343-05/03 27) Hemodynamic parameters: PAP: -- CVP: -- PCWP: -- CO: -- CI: -- SVO2: -- Pacemaker Overdrive Pacing: -- Cardiac Rhythm: Normal sinus rhythm (05/03) Pacer Mode: -- Physical exam: Physical Exam: Neuro: intubated/sedated/PERRL Cardiac: RR, S1/S2, periphery warm, pulses palpable distally Resp: orally intubated, lungs CTAB w mechanical breath sounds GI: OGT to LIWS, abdomen round, soft, absent bowel sounds : hutton w/ clear yellow urine Skin: pink, warm, dry, midline sternotomy incision open to air, C/D/I Lines: ETT, R radial a-line, PIV x3, Hutton, OGT Laboratory data: Recent Labs Lab Units 05/03/23 0010 05/02/23 2316 05/02/23 2213 05/02/23 2133 05/02/23 2129 05/02/23 1600 WBC K/cumm 14.6* -- -- 12.4* -- 15.0* HEMOGLOBIN, POC g/dL -- 10.4* 9.8* -- < > -- HEMOGLOBIN g/dL 10.7* -- -- 9.9* -- 10.9* HEMATOCRIT % 29.7* -- -- 28.8* -- 30.9* HEMATOCRIT POC % -- 31.0* 29.0* -- < > -- PLATELETS K/cumm 121* -- -- 105* -- 119* < > = values in this interval not displayed. Recent Labs Lab Units 05/03/23 0010 05/02/23 2155 05/02/23 1600 SODIUM mmol/L 134* 136 134* POTASSIUM PLASMA mmol/L See Comment 4.5 See Comment CHLORIDE mmol/L 106 107 103 CO2 mmol/L 18* 20* 16* BUN SERUM mg/dL 16 15 15 CREATININE mg/dL 1.27 1.36* 1.19 CALCIUM mg/dL 7.7* 7.6* 8.3* Recent Labs Lab Units 05/02/23 0410 05/01/23 0519 PROTIME (PT) sec 14.9* 13.7 INR 1.31* 1.20 APTT sec -- 34 Recent Labs Lab Units 05/03/23 0010 05/02/23 2316 05/02/23 2213 05/01/23 2303 05/01/23 1140 PH ART 7.35 7.34* 7.29* < > 7.31* PCO2 ART mmHg 32* -- -- -- 46* PO2 ART mmHg 110* -- -- -- 134* PO2 ARTERIAL POC mmHg -- 70* 68* < > -- BASE EXC ART mmol/L -7 -- -- -- -3 < > = values in this interval not displayed. Review of the laboratory data shows: CT BODY OUTSIDE CONSULT 05/01/2023 Impression 1. Extension of the type B thoracic aortic aneurysm, terminates just above the bifurcation, with origins the left renal artery and celiac artery arising off the false lumen. No evidence of vascular compromise. The entry tear is not definitely visualized, it may be just proximal to the diaphragmatic hiatus as this is where contrast within the false lumen is most dense. 2. Pseudofeces in the small bowel, without evidence of obstruction. This is of unknown clinical significance and is of uncertain etiology. Continued attention on follow-up imaging and correlation with symptomatology is recommended. Impression and Plan: Active problems/Diagnoses and Plans: Acute postoperative pain Returns to the unit intubated, sedated. - prop gtt, fent pushes while intubated Acute type B aortic dissection Hypertension CT showed extension of the type B thoracic aortic aneurysm, terminates just above the bifurcation, with origins the left renal artery and celiac artery arising off the false lumen. - Vascular surgery following. OR on 05/02 for TEVAR Hgb >9, Plt >100, INR < 1.5 flat x4h postop - Impulse control with SBP goal 100-120 and HR goal <60 - Continue esmolol gtt and clevidipine gtt - held PO carvedilol 12.5mg BID - q1h NV checks - Lactate as indicated Respiratory insufficiency requiring mechanical ventilation Expected postoperatively. History of desat and wheezing after administration of sugammadex and zofran in the OR prior to attempt to extubate. Required albuterol and epi pushes. BP stable throughout event. Lungs clear on arrival. Episode of desat resolved with recruitment breaths. - albuterol q4h prn - wean FiO2, CTM ABGs - will remain intubated o/n Adult Vent Mode: Pressure regulated volume control/assist control/VC+ FiO2 (%): [80 %-100 %] 80 % S RR: [18-20] 20 S VT: [500 mL-550 mL] 550 mL PEEP/CPAP/EPAP (cm H2O): [8 cm H20-12 cm H20] 12 cm H20 MAP (cmH2O): [12-18] 17 - CXR with bibasilar atelectasis R>L, no ptx Obstructive sleep apnea - consider BiPAP nightly once extubated Epistaxis Significant nose bleed in the OR requiring intra-op ENT c/s. DL performed, no other sources of bleeding visualized. ACT post protamine 149. - Packing in place - ENT following - Afrin BID prn - no other s/s bleeding ICU Standards of Care: Diet: NPO DVT prophylaxis: SCDs PUD prophylaxis: famotidine while intubated Dispo: ICU Code status: Full code TDLA: ETT, PIVx3, R radial a-line, Hutton, OGT Thea Zabala MD PGY-3 Anesthesiology Cosigned by Carline Jerome MD at 05/03/2023 2:29 PM ELECTRO OPTICS ENGINEER TRO OPTICS ENGINEER TRO OPTICS ENGINEER Associated attestation - Carline Jerome MD - 05/03/2023 2:29 PM ELECTRO OPTICS ENGINEER Attending Documentation: I have seen and examined this critically ill patient on the day of service. I have reviewed and confirmed the history, physical exam, laboratory and radiologic data with the house staff as documentedin the ICU Resident note. I have reviewed and discussed my treatment plan with the ICU team and other medical/sap security consultant staff, making frequent assessments and decisions regarding this patient's complex medical care. Critical care was necessary to treat or prevent imminent or life-threatening deterioration of the following conditions: Active problems: Aortic dissection s/p stent starting at zone 1 and stenting of left subclavian. Postoperative respiratory failure Leukocytosis Mild thrombocytopenia Headache. anemia Attending Impression / Plans: Discuss impulse control BP goals with vascular surgery. Increase carvedilol since he remains on max dose esmolol and clevdipine. Postoperative respiratory failure with high PEEP and FiO2 requirements. Assessed patient and changed vent to PSV 12/5 with 60% fiO2, Lasix 40 mg IV to start diuresis for pulmonary edema and generalized fluid overload. Postoperative nose bleed. Seen by ENT. Nose is packed. Attempt precedex as opposed to propofol for sedation. Complete jie-op antibiotics. Tylenol, Dilaudid and oxycodone for pain. Mild anemia: but stable. Hyperchloremic metabolic acidosis: Will give one amp of Bicarb. Afternoon update: Remains hypoxemic out of proportion to CXR findings. Will give labetalol and try to wean down clevidipine as potential etiology of shunting. Carline Jerome MD * Claudia Lockwood RN - 05/02/2023 9:39 PM CST Pt arrived from the OR, oxygenation issues while rollig in, pO2 56, adjusted vent settings and gavehyperinflation bagged breaths, increase O2 sats. OR report given to ICU team and eICU, will reposition q2 if hemodynamically stable and oxygen is appropriate. Pillows to bone protrusions, allevyn andEPC to coccyx, see flowsheets and MAR for full assessments and meds given TRO OPTICS ENGINEER * Ann Goldstein MD - 05/02/2023 6:39 PM CST Vascular Surgery Daily Progress Patient Name/MRN: Eriberto Chau [id number] Attending: Alonzo Duncan MD Today's Date: 05/02/2023 Room/Bed: OR/- Admit Date: 05/01/2023 Code Status: Full Code Subjective Chief complaint: Type B dissection Events Over Last 24 Hours: SBP 90s-120s overnight Worsening chest/upper back pain this AM Repeat scan with concern for worsening dissection Discussed with cardiac surgery Taken to OR emergently endovascular repair Allergies Allergen Reactions Amoxicillin Hives Current Facility-Administered Medications Medication Dose Route Frequency Provider Last Rate Last Admin [JUL Hold] acetaminophen (TYLENOL) tablet 1,000 mg 1,000 mg oral Q6H SUSAN Manuel Jarrett MD1,000 mg at 05/02/23 1225 [JUL Hold] Carrier Fluids for Secondary Infusion - 0.9% Sodium Chloride 30 mL intravenous PRN Manuel Jarrett MD [JUL Hold] carvediloL (COREG) tablet 25 mg 25 mg oral BID with meals (bkfst, dinner) Radha Duran, TREE clevidipine (CLEVIPREX) 50 mg/100 mL (0.5 mg/mL) (premix) 0-32 mg/hr intravenous Titrated Aroldo Kaplan MD Stopped at 05/02/23 1646 [JUL Hold] cyclobenzaprine (FLEXERIL) tablet 10 mg 10 mg oral TID PRN Ann Clay MD 10 mg at 05/02/23 1225 [JUL Hold] dilTIAZem (CARDIZEM) injection 5 mg 5 mg intravenous Q15 Min PRN Ann Clay MD 5 mg at 05/02/23 0811 esmolol in 0.9% sodium chloride (BREVIBLOC) 2,500 mg/250 mL (10 mg/mL) infusion (premix) 0-300 mcg/kg/min intravenous Titrated Ann Clay MD Stopped at 05/02/23 1701 heparin in 0.9% sodium chloride 2,000 unit/1,000 mL (2 unit/mL) infusion (premix) PRN Faustino Herrera MD 1,000 mL at 05/02/23 1755 [MAR Hold] HYDROmorphone (DILAUDID) injection 0.4 mg 0.4 mg intravenous Q2H PRN Ann Clay MD 0.4 mg at 05/02/23 1511 [MAR Hold] lidocaine (ASPERCREME) 4 % patch 2 patch 2 patch transdermal Q24H Ann Clay MD 2 patch at 05/02/23 0311 lidocaine in dextrose 5% 2 g/250 mL (8 mg/mL) infusion (premix) 1 mg/kg/hr ([place]) intravenous Continuous Manuel Jarrett MD Stopped at 05/02/23 1632 nitroglycerin injection 100 mcg/mL in D5W 10 mL PRN Faustino Herrera MD 200 mcg at 05/02/23 1827 [MAR Hold] ondansetron (ZOFRAN) injection 4 mg 4 mg intravenous Q6H PRN Manuel Jarrett MD 4 mg at 05/02/23 1001 [MAR Hold] oxyCODONE (ROXICODONE) tablet 10 mg 10 mg oral Q4H PRN Manuel Jarrett MD 10 mg at 05/02/23 1306 [MAR Hold] senna (SENOKOT) tablet 1 tablet 1 tablet oral BID Manuel Jarrett MD 1 tablet at107/03/22 0838 Or [MAR Hold] senna 1.76 mg/mL syrup 8.8 mg 8.8 mg feeding tube BID Manuel Jarrett MD [MAR Hold] sodium chloride 0.9% flush 0.5-20 mL 0.5-20 mL intra-catheter Q8H SUSAN Manuel Jarrett MD 10 mL at 05/02/23 0509 [MAR Hold] sodium chloride 0.9% flush 0.5-20 mL 0.5-20 mL intra-catheter PRN Manuel Jarrett MD sodium chloride 0.9% irrigation PRN Faustino Herrera MD 1,000 mL at 05/02/23 1755 sodium chloride 0.9% solution 3-12 mL/hr intra-catheter Continuous Manuel Jarrett MD 3 mL/hr at 05/02/23 0700 3 mL/hr at 05/02/23 0700 verapamiL (ISOPTIN) injection PRN Faustino Herrera MD 5 mg at 05/02/23 1827 Facility-Administered Medications Ordered in Other Encounters Medication Dose Route Frequency Provider Last Rate Last Admin ceFAZolin (ANCEF) injection intravenous PRN Emeka Barrow MD 2,000 mg at 05/02/23 1655 fentaNYL (SUBLIMAZE) preservative free injection intravenous PRN Emeka Barrow MD 100 mcg at 05/02/23 1647 heparin 1,000 unit/mL injection intravenous PRN Jh Onofre CRNA 11,000 Units at 05/02/23 1808 Lactated Ringer's (LR) infusion intravenous Continuous PRN Emeka Barrow MD New Bag at 05/02/23 1821 Lactated Ringer's (LR) infusion intravenous Continuous PRN Jh Onofre CRNA New Bag at 05/02/23 1657 lidocaine (cardiac) (XYLOCAINE) preservative free injection intravenous PRN Emeka Barrow MD 20 mg at 05/02/23 1647 midazolam (VERSED) 2 mg/2 mL preservative free injection intravenous PRN Emeka Barrow MD2 mg at 05/02/23 1647 niCARdipine (CARDENE) injection intravenous PRN Jh Onofre CRNA 100 mcg at 05/02/23 1822 phenylephrine (KARLI-SYNEPHRINE) 1 mg/10 mL (100 mcg/mL) in sodium chloride 0.9% (premix) intravenousPRN Emeka Barrow MD 100 mcg at 05/02/23 1703 phenylephrine (KARLI-SYNEPHRINE) 1 mg/10 mL (100 mcg/mL) in sodium chloride 0.9% (premix) intravenousContinuous PRN Jh Onofre CRNA Stopped at 05/02/23 1713 propofoL (DIPRIVAN) 10 mg/mL IV intravenous PRN Emeka Barrow MD 20 mg at 05/02/23 1820 rocuronium (ZEMURON) injection intravenous PRN Emeka Barrow MD 100 mg at 05/02/23 1647 Objective Vitals: 24hr Min/Max: Temp Min: 36.7 ??C (98.1 ??F) Max: 36.9 ??C (98.5 ??F) Pulse Min: 66 Max: 80 BP Min: 94/56 Max: 120/70 Resp Min: 6 Max: 22 SpO2 Min: 91 % Max: 100 % Most Recent : Vitals: 05/02/23 1600 BP: 106/54 Pulse: 75 Resp: 13 Temp: 36.9 ??C (98.4 ??F) SpO2: 95% I/O last 2 completed shifts: In: 6070 [I.V.:6070] Out: 765 [Urine:765] I/O this shift: In: 3566.6 [I.V.:3566.6] Out: 560 [Urine:550; Blood:10] Physical Exam: Constitutional: Uncomfortable appearing Neuro: alert, following commands. Sensation grossly intact. Moving all extremities. HENT: airway midline and patent, no secretions Eyes: PERRL, no scleral icterus CV: regular rate and rhythm Pulmonary: Nonlabored breathing. Symmetric chest rise. No accessory muscle use. Abdomen: Soft, nontender, nondistended Extremities: no edema, symmetric, well-developed Skin: warm/dry/intact Pulses: Palpable DP and radial pulses bilaterally Assessment/Plan Eriberto Chau is a 32 y.o. male who presented with Type B aortic dissection. Worsening pain today despite adequate blood pressure management. CT scan with worsening dissection. Taken to OR for endovascular repair. - Cardiology consult (Dr. Abarca), tomorrow - Continue impulse control with HR <60 and SBP <100 - NPO - OR for endovascular repair Ann Goldstein MD Vascular Surgery Fellow [phone] Cosigned by Alonzo Duncan MD at 05/03/2023 4:20 PM ELECTRO OPTICS ENGINEER TRO OPTICS ENGINEER TRO OPTICS ENGINEER * Faustino Herrera MD - 05/02/2023 5:39 PM CST Vascular Staff Note I was asked to see Mr. Chau as the on-call attending. I reviewed his hospital course, his imaging course, and discussed with Drs. Zimmer, Jai, and Daniel the anatomy and the changes. Given hisprogression to the level of the arch, I am concerned regarding retrograde type A aortic dissection with any endovascular repair; however, given his worsening pain despite adequate BP control over the last 18 hours I have recommended proceeding with endovascular repair in conjunction with the cardiac service for any rTAAD. I personally had a discussion regarding the risks, benefits, and alternatives of endovascular repair with the patient and his mother, specifically mentioning stroke, paralysis, rTAAD, [place], need for future procedures, arterial rupture. He gave consent for surgery. TRO OPTICS ENGINEER * Nicole Bergman RN - 05/02/2023 4:46 PM CST Pt taken off to OR via bed and continuous cardiac monitors with gtts by OR staff. TRO OPTICS ENGINEER * Timmy Rosales. - 05/02/2023 3:43 PM CST Fr Timmy Rosales [phone] 05/02/23 1500 Time Spent Start Time 1220 Stop Time 1230 Time Calculation (min) 10 min Patient Spiritual Assessment Spirituality Assessed Yes Rastafarian Affiliation Mu-Ism Active in Synagogue Yes Spiritual Needs Anointing;Prayer Clinical Encounter Type Visited With Patient and family together Response Type Routine visit Routine Visit Introduction Reason for visit Sacramental;Support Sacramental Encounters Sacrament of Sick-Anointing Anointed Outcomes and Progress Aligning care with patient's values Achieved Preserve dignity and respect Achieved Demonstrating care and respect Achieved Interventions Interventions Active listening;Offer emotional support;Prayer (Benediction) TRO OPTICS ENGINEER * Mariel Pope OT - 05/02/2023 3:38 PM CST Occupational Therapy 05/02/23 1538 General OT Missed Visit Reason Bedrest TRO OPTICS ENGINEER * Ann Clay MD - 05/02/2023 2:[address] ICU Daily Progress Shifts: MD Shift Options: CTI PM 1 Subjective Patient is a 32 y.o. male admitted to the hospital on 05/01/2023 4:58 AM with/following: Type B Aortic dissection Overnight events: 05/01 AM - Impulse control with SBP goal <100 and HR goal <70 - Continue esmolol gtt - Changed nicardipine gtt to clevidipine gtt - Increased PO carvedilol to 12.5mg BID - q1h NV checks - Trend CMP/CBC/lactate q6h 05/01 PM - Lopressor push and additional dose 12.5 mg PO coreg for BP and HR control - BiPAP overnight (JANELLE) - BP spiked to 150s while sitting up to urinate -> acutely worsening back & flank pain, vascular aware, pulses intact, pain control w 50 fent and CTM for abdominal or chest pain. See significant event note. - Dilt 5 prn order placed for BP control - Unable to urinate, placed hutton - Lido patch, hot pack for back muscle cramping, flexeril prn Objective Medications: Scheduled Meds:acetaminophen, 1,000 mg, oral, Q6H SUSAN carvediloL, 12.5 mg, oral, BID with meals (bkfst, dinner) fentaNYL, , , insulin lispro, 1-3 Units, subcutaneous, Q4H SUSAN lidocaine, 2 patch, transdermal, Q24H senna, 1 tablet, oral, BID Or senna, 8.8 mg, feeding tube, BID sodium chloride 0.9%, 0.5-20 mL, intra-catheter, Q8H SUSAN Continuous Infusions:clevidipine, 0-32 mg/hr, Last Rate: 29 mg/hr (05/02/23 034) esmolol, 0-300 mcg/kg/min, Last Rate: 300 mcg/kg/min (05/02/23 030) sodium chloride 0.9%, 3-12 mL/hr, Last Rate: 3 mL/hr (05/02/23 030) Vitals: Temp: [36.4 ??C (97.5 ??F)-36.7 ??C (98.1 ??F)] 36.7 ??C (98.1 ??F) Pulse: [61-85] 70 BP: (70-192)/(34-125) 120/70 Resp: [2-37] 18 SpO2: [88 %-100 %] 100 % Arterial Line BP: (89-168)/(34-97) 118/57 FiO2 (%): [6 %-40 %] 40 % Fluid balance: I/O this shift: In: 2217.8 [I.V.:2217.8] Out: 525 [Urine:525] Intake/Output Summary (Last 24 hours) at 05/02/2023 0348 Last data filed at 05/02/2023 0300 Gross per 24 hour Intake 5313.41 ml Output 675 ml Net 4638.41 ml Ventilator settings: FiO2 (%): 40 % (05/02 0204) Hemodynamic parameters: PAP: -- CVP: -- PCWP: -- CO: -- CI: -- SVO2: -- Pacemaker Overdrive Pacing: -- Cardiac Rhythm: Normal sinus rhythm (05/010) Pacer Mode: -- Physical exam: Constitutional: General: He is not in acute distress. Appearance: He is obese. HENT: Head: Normocephalic and atraumatic. Eyes: Pupils: [...] normal. Laboratory data: Recent Labs Lab Units 05/01/23 2352 05/01/23 2303 05/01/23 1710 05/01/23 1015 WBC K/cumm 15.1* -- 15.0* 16.7* HEMOGLOBIN, POC g/dL -- 11.6* -- -- HEMOGLOBIN g/dL 10.9* -- 11.1* 12.5* HEMATOCRIT % 31.8* -- 32.3* 37.2* HEMATOCRIT POC % -- 35.0* -- -- PLATELETS K/cumm 104* -- 110* 109* Recent Labs Lab Units 05/01/23 2352 05/01/23 1750 05/01/23 1015 SODIUM mmol/L 139 139 141 POTASSIUM PLASMA mmol/L 4.0 See Comment 4.1 CHLORIDE mmol/L 108 106 105 CO2 mmol/L 24 23 25 BUN SERUM mg/dL 22 23 21 CREATININE mg/dL 1.25 1.26 1.57* CALCIUM mg/dL 7.7* 7.8* 8.5 Recent Labs Lab Units 05/01/23 0519 PROTIME (PT) sec 13.7 INR 1.20 APTT sec 34 Recent Labs Lab Units 05/01/23 2303 05/01/23 1140 PH ART 7.37 7.31* PCO2 ART mmHg -- 46* PO2 ART mmHg -- 134* PO2 ARTERIAL POC mmHg 102 -- BASE EXC ART mmol/L -- -3 Review of the laboratory data shows: CT BODY OUTSIDE CONSULT 05/01/2023 Impression 1. Extension of the type B thoracic aortic aneurysm, terminates just above the bifurcation, with origins the left renal artery and celiac artery arising off the false lumen. No evidence of vascular compromise. The entry tear is not definitely visualized, it may be just proximal to the diaphragmatic hiatus as this is where contrast within the false lumen is most dense. 2. Pseudofeces in the small bowel, without evidence of obstruction. This is of unknown clinical significance and is of uncertain etiology. Continued attention on follow-up imaging and correlation with symptomatology is recommended. Impression and Plan: Active problems/Diagnoses and Plans: Acute type B aortic dissection Hypertension CT showed extension of the type B thoracic aortic aneurysm, terminates just above the bifurcation, with origins the left renal artery and celiac artery arising off the false lumen. - Vascular surgery following - Impulse control with SBP goal <100 and HR goal <70 - Continue esmolol gtt and clevidipine gtt - PO carvedilol 12.5mg BID - q1h NV checks - Continue to trend CMP/CBC/lactate q6h - Pain control: tylenol, oxycodone prn, dilaudid prn Obstructive sleep apnea - BiPAP nightly Ann Clay MD Cosigned by Carline Jerome MD at 05/02/2023 8:44 AM ELECTRO OPTICS ENGINEER TRO OPTICS ENGINEER TRO OPTICS ENGINEER TRO OPTICS ENGINEER Associated attestation - Carline Jerome MD - 05/02/2023 8:44 AM ELECTRO OPTICS ENGINEER Attending Documentation: I have seen and examined this critically ill patient on the day of service. I have reviewed and confirmed the history, physical exam, laboratory and radiologic data with the house staff as documentedin the ICU Resident note. I have reviewed and discussed my treatment plan with the ICU team and other medical/sap security consultant staff, making frequent assessments and decisions regarding this patient's complex medical care. Critical care was necessary to treat or prevent imminent or life-threatening deterioration of the following conditions: Active problems: Type B Aortic dissection Leukocytosis Mild thrombocytopenia Headache. anemia Attending Impression / Plans: Repeat CT scan because of new finding of widened mediastinum. BP is well controlled. Cont clevidipine and esmolol as well as coreg. Tylenol and oxycodone for pain. Restart SQH for repeat CT scan is negative for tamponade or type A. Mild thrombocytopenia: cont to trend. Mild anemia: prob from volume overload: not clinically significant. Cont to monitor fluid status closely: high dose of intravenous meds for BP control will eventually lead to fluid overload. Carline Jerome MD documented in this encounter H&P Notes * Pam Sharma, Aroldo Lawler MD - 05/01/2023 12:[address] ICU History and Physical Shifts: MD Shift Options: CTI AM 1 Subjective Patient is a 32 y.o. male admitted to the hospital on 05/01/2023 4:58 AM Chief Complaint /Reason for admission to CTICU: Type B Aortic dissection HPI: Eriberto Chau is a 32 y.o. male with PMH uncontrolled HTN (non-adherence) p/w acute CP, abd pain, and SOB x 6 hours. Woke up around 1AM with symptoms and presented to [facility]. 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 On arrival, endorses n/v and persistent CP/abdominal pain. On nicardipine/esmolol gtt, SBP 150-160s. On arrival to the CTICU he is alert, oriented, in no acute distress, hemodynamically stable with heart rate in the 70s and systolic blood pressure in the 100s. His exam was notable for no carotid bruits, normal heart sounds, palpable bilateral radial, femoral, posterior tibial and deep peroneal pulses. No past medical history on file. No past surgical history on file. HOME MEDICATIONS : Not on File Allergies Allergen Reactions Amoxicillin Hives Social History Tobacco Use Smoking status: Never Smokeless tobacco: Never Substance and Sexual Activity Drug use: Not on file Sexual activity: Not on file Alcohol Use: Not on file No family history on file. Review of systems: Review of Systems Constitutional: Negative. HENT: Negative. Eyes: Negative. Respiratory: Negative. Cardiovascular: Positive for chest pain. Gastrointestinal: Negative. Genitourinary: Negative. Musculoskeletal: Positive for back pain. Skin: Negative. Neurological: Negative. Endo/Heme/Allergies: Negative. Psychiatric/Behavioral: Negative. Objective Medications: Scheduled Meds:acetaminophen, 1,000 mg, oral, Q6H SUSAN carvediloL, 12.5 mg, oral, BID with meals (bkfst, dinner) insulin lispro, 1-3 Units, subcutaneous, Q4H SUSAN senna, 1 tablet, oral, BID Or senna, 8.8 mg, feeding tube, BID sodium chloride 0.9%, 0.5-20 mL, intra-catheter, Q8H [facility] Continuous Infusions:clevidipine, 0-32 mg/hr, Last Rate: 26 mg/hr (05/01/231727) esmolol in 0.9% sodium chloride, esmolol, 0-300 mcg/kg/min, Last Rate: 300 mcg/kg/min (05/01/231699) sodium chloride 0.9%, 3-12 mL/hr, Last Rate: 3 mL/hr (05/01/231699) Vitals: Temp: [36.4 ??C (97.5 ??F)-36.6 ??C (97.9 ??F)] 36.6 ??C (97.8 ??F) Pulse: [61-85] 79 BP: (70-192)/(34-125) 110/47 Resp: [2-37] 17 SpO2: [88 %-100 %] 91 % Arterial Line BP: (89-168)/(34-97) 108/46 Fluid balance: I/O this shift: In: 2856.3 [I.V.:2856.3] Out: 150 [Urine:150] Intake/Output Summary (Last 24 hours) at 05/01/2023 1734 Last data filed at 05/01/2023 1700 Gross per 24 hour Intake 2856.31 ml Output 150 ml Net 2706.31 ml Vent settings: Hemodynamic parameters: PAP: -- CVP: -- PCWP: -- CO: -- CI: -- SVO2: -- Pacemaker Overdrive Pacing: -- Cardiac Rhythm: Normal sinus rhythm (05/01 1700) Pacer Mode: -- Physical exam: Physical Exam Constitutional: General: He is not in acute distress. Appearance: He is obese. HENT: Head: Normocephalic and atraumatic. Eyes: Pupils: [...] normal. Laboratory data: Recent Labs Lab Units 05/01/23 1015 05/01/23 0519 WBC K/cumm 16.7* 20.6* HEMOGLOBIN g/dL 12.5* 13.6 HEMATOCRIT % 37.2* 39.4 PLATELETS K/cumm 109* 165 Recent Labs Lab Units 05/01/23 1015 05/01/23 0519 SODIUM mmol/L 141 140 POTASSIUM PLASMA mmol/L 4.1 4.1 CHLORIDE mmol/L 105 103 CO2 mmol/L 25 26 BUN SERUM mg/dL 21 20 CREATININE mg/dL 1.57* 1.46* CALCIUM mg/dL 8.5 9.0 Recent Labs Lab Units 05/01/23 0519 PROTIME (PT) sec 13.7 INR 1.20 APTT sec 34 Recent Labs Lab Units 05/01/23 1140 PH ART 7.31* PCO2 ART mmHg 46* PO2 ART mmHg 134* BASE EXC ART mmol/L -3 Radiology/Diagnostic/Lab Review CT BODY OUTSIDE CONSULT 05/01/2023 Impression 1. Extension of the type B thoracic aortic aneurysm, terminates just above the bifurcation, with origins the left renal artery and celiac artery arising off the false lumen. No evidence of vascular compromise. The entry tear is not definitely visualized, it may be just proximal to the diaphragmatic hiatus as this is where contrast within the false lumen is most dense. 2. Pseudofeces in the small bowel, without evidence of obstruction. This is of unknown clinical significance and is of uncertain etiology. Continued attention on follow-up imaging and correlation with symptomatology is recommended. Impression and Plan: Active problems/Diagnoses: Acute type B aortic dissection - Impulse control with SBP goal <100 and HR goal <70 - Continue esmolol gtt - Changed nicardipine gtt to clevidipine gtt - Added PO carvedilol - q1h NV checks - Trend CMP/CBC/lactate q6h Aroldo Orozco MD PGY-2 General Surgery Cosigned by Carline Jerome MD at 05/02/2023 5:54 PM ELECTRO OPTICS ENGINEER TRO OPTICS ENGINEER TRO OPTICS ENGINEER documented in this encounter Procedure Notes * Dalton Locke MD - 05/13/2023 12:56 PM CSTAssociated Order(s): Critical Care Post-Procedure Diagnose(s): Dissection of thoracoabdominal aorta (CMS/HCC) (HCC) Critical Care Performed by: Dalton Locke MD Authorized by: Dalton Locke MD CRITICAL CARE: Team: 83 CTICU Shift: AM Level of Billing: Subsequent Hospital Visit Level 3 My time spent with this patient was 20 minutes: Critical Provider Statement: I have seen and examined the patient on this day of service. I have reviewed and confirmed the history, physical exam, laboratory, and radiographic data as documented in the ICU note. I have reviewed and discussed my treatment plan with the patient's team and other medical/sap security consultant staff. This time was in addition to and separate from care provided by other practitioners on this day of service. I spent time reviewing and interpreting data from bedside monitors, laboratory results, and imaging, I spent time discussing the management of this critically ill patient with consultants and the medical staff and I spent time documenting in the medical record TRO OPTICS ENGINEER * Dalton Locke MD - 05/12/2023 4:16 PM CSTAssociated Order(s): Critical Care Post-Procedure Diagnose(s): Dissection of thoracoabdominal aorta (CMS/HCC) (HCC) Critical Care Performed by: Dalton Locke MD Authorized by: Dalton Locke MD CRITICAL CARE: Team: 83 CTICU Shift: AM Level of Billing: Subsequent Hospital Visit Level 3 My time spent with this patient was 20 minutes: Critical Provider Statement: I have seen and examined the patient on this day of service. I have reviewed and confirmed the history, physical exam, laboratory, and radiographic data as documented in the ICU note. I have reviewed and discussed my treatment plan with the patient's team and other medical/sap security consultant staff. This time was in addition to and separate from care provided by other practitioners on this day of service. I spent time reviewing and interpreting data from bedside monitors, laboratory results, and imaging, I spent time discussing the management of this critically ill patient with consultants and the medical staff and I spent time documenting in the medical record TRO OPTICS ENGINEER * Dalton Locke MD - 2023 4:16 PM CSTAssociated Order(s): Critical Care Post-Procedure Diagnose(s): Dissection of thoracoabdominal aorta (CMS/HCC) (HCC) Critical Care Performed by: Dalton Locke MD Authorized by: Dalton Locke MD CRITICAL CARE: Team: 83 CTICU Shift: AM Level of Billing: Subsequent Hospital Visit Level 3 My time spent with this patient was 20 minutes: Critical Provider Statement: I have seen and examined the patient on this day of service. I have reviewed and confirmed the history, physical exam, laboratory, and radiographic data as documented in the ICU note. I have reviewed and discussed my treatment plan with the patient's team and other medical/sap security consultant staff. This time was in addition to and separate from care provided by other practitioners on this day of service. I spent time reviewing and interpreting data from bedside monitors, laboratory results, and imaging, I spent time discussing the management of this critically ill patient with consultants and the medical staff and I spent time documenting in the medical record TRO OPTICS ENGINEER * Dalton Locke MD - 05/10/2023 4:14 PM CSTAssociated Order(s): Critical Care Post-Procedure Diagnose(s): Dissection of thoracoabdominal aorta (CMS/HCC) (HCC) Critical Care Performed by: Dalton Locke MD Authorized by: Dalton Locke MD CRITICAL CARE: Team: 83 CTICU Shift: AM [...] plan with the ICU team and other medical/sap security consultant staff, making frequent assessments and decisions [...] or life-threatening deterioration of the following conditions: Aortic dissection/aneurysm Hypervolemia Concern for Spinal Cord Ischemia This time was spent by me doing the following: Lumbar drain management Initiation/active titration of vasoactive medications Active and frequent reassessment of respiratory status and oxygen requirements Active and frequent monitoring of intake/output and volumen status Active diuresis Empiric broad coverage antibiotics I spent time reviewing and interpreting data from bedside monitors, laboratory results, and imaging, I spent time discussing the management of this critically ill patient with consultants and the medical staff and I spent time documenting in the medical record TRO OPTICS ENGINEER * Dalton Locke MD - 05/09/2023 3:58 PM CSTAssociated Order(s): Critical Care Post-Procedure Diagnose(s): Dissection of thoracoabdominal aorta (CMS/HCC) (HCC) Critical Care Performed by: Dalton Locke MD Authorized by: Dalton Locke MD CRITICAL CARE: Team: 83 CTICU Shift: AM [...] plan with the ICU team and other medical/sap security consultant staff, making frequent assessments and decisions [...] or life-threatening deterioration of the following conditions: Encephalopathy/altered mental status Aortic dissection/aneurysm Concern for Spinal Cord Ischemia Fluid Overload Pneumonia This time was spent by me doing the following: Administration of sedatives and psychotropic medications, Acute pain control and Lumbar drain management Initiation/active titration of vasoactive medications and Serial neurovascular exams Active and frequent reassessment of respiratory status and oxygen requirements and Optiflow support Active and frequent monitoring of intake/output and volumen status Active diuresis I spent time reviewing and interpreting data from bedside monitors, laboratory results, and imaging, I spent time discussing the management of this critically ill patient with consultants and the medical staff and I spent time documenting in the medical record TRO OPTICS ENGINEER * Dalton Locke MD - 05/08/2023 2:53 PM CSTAssociated Order(s): Critical Care Post-Procedure Diagnose(s): Dissection of thoracoabdominal aorta (CMS/HCC) (HCC) Critical Care Performed by: Dalton Locke MD Authorized by: Dalton Locke MD CRITICAL CARE: Team: 83 CTICU Shift: AM [...] plan with the ICU team and other medical/sap security consultant staff, making frequent assessments and decisions [...] or life-threatening deterioration of the following conditions: Acute pain/acute postoperative pain Aortic dissection/aneurysm Concern for Spinal Cord Ischemia Acute hypoxic respiratory failure Pneumonia This time was spent by me doing the following: Lumbar drain management, Frequent neurologic exams and Acute pain control Initiation/active titration of vasoactive medications and Serial neurovascular exams Active and frequent reassessment of respiratory status and oxygen requirements and Optiflow support Active diuresis and Active repletion of electrolytes Empiric broad coverage antibiotics I spent time reviewing and interpreting data from bedside monitors, laboratory results, and imaging, I spent time discussing the management of this critically ill patient with consultants and the medical staff and I spent time documenting in the medical record TRO OPTICS ENGINEER TRO OPTICS ENGINEER * Dalton Locke MD - 05/07/2023 2:55 PM CSTAssociated Order(s): Critical Care Post-Procedure Diagnose(s): Dissection of thoracoabdominal aorta (CMS/HCC) (HCC) Critical Care Performed by: Dalton Locke MD Authorized by: Dalton Locke MD CRITICAL CARE: Team: 83 CTICU Shift: AM [...] plan with the ICU team and other medical/sap security consultant staff, making frequent assessments and decisions [...] or life-threatening deterioration of the following conditions: Acute pain/acute postoperative pain Aortic dissection/aneurysm Concern for Spinal Cord Ischemia Acute hypoxic respiratory failure Leukocytosis and Pneumonia This time was spent by me doing the following: Acute pain control, Frequent neurologic exams and Lumbar drain management Initiation/active titration of vasoactive medications and Serial neurovascular exams Optiflow support Active diuresis Empiric broad coverage antibiotics I spent time reviewing and interpreting data from bedside monitors, laboratory results, and imaging, I spent time discussing the management of this critically ill patient with consultants and the medical staff and I spent time documenting in the medical record TRO OPTICS ENGINEER * Thea Rizzo MD - 05/07/2023 1:11 PM CSTAssociated Order(s): Arterial Line Insertion Post-Procedure Diagnose(s): Dissection of thoracoabdominal aorta (CMS/HCC) (HCC) Arterial Line Insertion Date/Time: 05/07/2023 1:42 PM Performed by: Thea Rizzo MD Authorized by: Thea Rizzo MD [place] Protocol: Informed consent: Risks, benefits, alternatives discussed and patient/telephone service representative/guardian agrees and accepts Patient's stated name/ matches armband: Yes Consent form signed, dated, timed; matches correct patient, intended procedure and site: Yes Imaging: Pertinent imaging reviewed, correctly oriented and match to patient identifiers Supplies, devices and special equipment are available: yes Site/side marked: yes Immediately prior to the procedure a time out was called: a verbal verification by the procedure participants confirmed correct patient identity, correct site/side marked and visible (if applicable);agreement on procedure to be done; and correct patient positioning Indications: multiple ABGs and hemodynamic monitoring Location: Right radial Anesthesia: Topical application Patient skin preparation: chlorhexidine Ultrasound guidance: Pre-procedure diagnostic and real-time needle guidance Patient preparation: Cap, gloves, sterile probe cover, handwashing, mask, partial body drape and towels Catheter gauge: 20 Single percutaneous needle puncture: Yes Seldinger technique used: Yes Number of attempts: 1 Placement confirmed with arterial waveform: Yes Post-procedure: Line sutured and dressing applied Post-procedure CMS: Normal Complications: no complications noted during insertion Post Procedure Debrief: All guidewires, needles, sponges or other items are accounted for: yes Cosigned by Dalton Locke MD at 05/08/2023 1:47 PM ELECTRO OPTICS ENGINEER TRO OPTICS ENGINEER TRO OPTICS ENGINEER Associated attestation - Dalton Locke MD - 05/08/2023 1:47 PM ELECTRO OPTICS ENGINEER Attending Procedure Attestation: I was present for, and directly supervised the procedure as documented by the Resident. Silverio Locke MD Seasonal Recruiter Department of Anesthesiology * Michael Hamm MD - 05/07/2023 2:50 AM CSTAssociated Order(s): Arterial Line Insertion Post-Procedure Diagnose(s): Dissection of aorta, unspecified portion of aorta (HCC) Arterial Line Insertion Date/Time: 05/07/2023 2:50 AM Performed by: Michael Hamm MD Authorized by: Michael Hamm MD [place] Protocol: RN Notified of Procedure: yes Informed consent: Risks, benefits, alternatives discussed Patient's stated name/ matches armband: Yes Allergies confirmed: yes Consent form signed, dated, timed; matches correct patient, intended procedure and site: Yes Supplies, devices and special equipment are available: yes Immediately prior to the procedure a time out was called: a verbal verification by the procedure participants confirmed correct patient identity, correct site/side marked and visible (if applicable);agreement on procedure to be done; and correct patient positioning Indications: hemodynamic monitoring Location: Left radial Anesthesia: Local infiltration Local anesthetic: Lidocaine 1% Ultrasound guidance: Pre-procedure diagnostic and real-time needle guidance Patient preparation: Cap, gloves, gown, handwashing, mask, partial body drape and towels Leo's test normal?: Yes Catheter gauge: 20 Single percutaneous needle puncture: Yes Seldinger technique used: Yes Number of attempts: 1 Placement confirmed with arterial waveform: Yes Post-procedure: Line sutured and dressing applied Post-procedure CMS: Normal Complications: no complications noted during insertion Post Procedure Debrief: All guidewires, needles, sponges or other items are accounted for: yes Cosigned by Dalton Locke MD at 05/08/2023 1:47 PM ELECTRO OPTICS ENGINEER TRO OPTICS ENGINEER TRO OPTICS ENGINEER * Dustin Souza DO - 05/06/2023 9:35 PM CSTAssociated Order(s): Intubation Post-Procedure Diagnose(s): Dissection of aorta, unspecified portion of aorta (HCC) Intubation Date/Time: 05/06/2023 9:36 PM Performed by: Dustin Souza DO Authorized by: Dustin Souza DO [place] Protocol: RN Notified of Procedure: yes Informed consent: Risks, benefits, alternatives discussed Patient's stated name/ matches armband: Yes Allergies confirmed: yes Consent form signed, dated, timed; matches correct patient, intended procedure and site: Yes Imaging: N/a Lab/Diag test results: N/a Supplies, devices and special equipment are available: yes Site/side marked: n/a Immediately prior to the procedure a time out was called: a verbal verification by the procedure participants confirmed correct patient identity, correct site/side marked and visible (if applicable); agreement on procedure to be done; and correct patient positioning Indications: Airway protection Intubation method: Video-assisted Patient status: Unconscious Patient position: Appropriate position w/cervical spine immobilization maintained throughout the procedure Preoxygenation: Nonrebreather mask Mask Ease: easy Pretreatment meds: Fentanyl Sedation: Propofol Paralytic: Rocuronium Laryngoscope type: CMAC. Laryngoscope size: Mac 4 Tube size (mm): 8.0 Tube type: Cuffed Number of attempts: 1 Was this a difficult intubation?: No Cricoid pressure: No Cords visualized: Yes Post-procedure assessment: Chest rise and ETCO2 monitor Breath sounds: Equal Cuff inflated: Yes ETT to lip (cm): 25 Tube secured with: ETT rubalcava Patient tolerance: Patient tolerated the procedure well with no immediate complications Cosigned by Dalton Locke MD at 05/08/2023 1:47 PM ELECTRO OPTICS ENGINEER TRO OPTICS ENGINEER TRO OPTICS ENGINEER * Gonzalez Eduardo MD - 05/05/2023 11:32 PM CST Procedures Neurosurgery Lumbar Drain Placement Attending surgeon: Dr. Smith Resident surgeon: Gonzalez Eduardo MD and Carlos Alberto Nix MD, PhD Location of procedure: CTICU Preoperative diagnosis: possible spinal cord infarct Postoperative diagnosis: possible spinal cord infarct Condition prior to procedure: stable Condition after procedure: stable Estimated blood loss: minimal Specimen/tissue removed: none Name of procedure: Lumbar drain placement Brief history: Eriberto Chau is a 32 y.o. male who was admitted to the CTICU for type B aortic dissection s/p TEVAR. He had been extubated and woke up today, and was unable to move his bilateral lower extremities.Lumbar drain placement was attempted by the CTICU team twice, once in the sitting position and oncein the lateral position, but was unsuccessful. Neurosurgery was consulted for lumbar drain placement. Consent was obtained after a full discussion of the risks and benefits of the procedure with the patient's family. Prior to the procedure, the patient's labs were verified as being within normal limits, specifically with an INR of less than 1.4 and a platelet count greater than 100. The patient re ceived linezolid within 1 hour prior to the procedure. A timeout was performed verifying the patient's name, date of , and allergies. Description of procedure/operative findings: The patient was positioned in the lateral decubitus position with their knees tucked up to the chest. The lower back was prepped and draped in the usual fashion. Lidocaine was injected for local anesthesia. Next a 14-gauge Touhy needle was inserted between the spinous processes at the level of L4-5. The needle was successfully entered into the thecal sac with good CSF flow. The needle was then rotated 90 degrees so that the bevel of the needle faced upwards toward the patient's head. The lumbardrain catheter was then passed into the thecal sac through the needle. The Touhy needle was carefully removed, and CSF flow through the lumbar drain was again confirmed. Next the drain tubing was connected to the end of the lumbar drain, and the connection was secured with a silk suture. The lumbardrain was taped in a retention loop to the patient's back using sterile Tegaderm dressings and the lumbar drain was hung with goal output of 10 mL per hour. At the end of the procedure all sharps were accounted for and properly disposed of. The patient tolerated the procedure well and there were noprocedural complications. Cosigned by Jaden Smith MD at 05/06/2023 2:52 PM ELECTRO OPTICS ENGINEER TRO OPTICS ENGINEER TRO OPTICS ENGINEER * Shira Dodson MD - 05/05/2023 10:05 PM CSTAssociated Order(s): Lumbar Drain Post-Procedure Diagnose(s): Dissection of aorta, unspecified portion of aorta (HCC) Lumbar Drain Date/Time: 05/05/2023 10:05 AM Performed by: Shira Dodson MD Authorized by: Shira Dodson MD [place] Protocol: RN Notified of Procedure: yes Informed consent present: Consent obtained from family by ICU team. Allergies confirmed: yes Imaging: Pertinent imaging reviewed, correctly oriented and match to patient identifiers Lab/Diag test results: Pertinent lab/diag tests reviewed and match to patient identifiers (INR 1.48PLT 132 PTT 35)Immediately prior to the procedure a time out was called: a verbal verification by the procedure participants confirmed correct patient identity, correct site/side marked and visible (if applicable); agreement on procedure to be done; and correct patient positioning Indications: Placement for therapuetic CSF drainage for enhanced spinal cord perfusion. Anesthesia (see MAR for exact dosage) Anesthesia method: Local infiltration Local anesthetic: Lidocaine 1% Patient prepararion: Cap, gloves, handwashing, mask and partial body drape Skin preparation: Skin prepped with 2% chlorhexidine Lumbar space: L4-L5 interspace (L3 -L4 and L4 -L5) Patient position: Initially sitting then lateral decubitus. Needle gauge: 17G. Number of attempts: 3 Patient tolerance: Patient tolerated the procedure well with no immediate complications Post Procedure Debrief: All guidewires, needles, sponges or other items are accounted for: yes Asked to place lumbar drain for patient that had diminished lower extremity strength following a TEVAR. Informed that neurosurgery initially consulted but had deferred placement. Discussed with on service attending Jerome given the coagulation profile and decision made to attempt lumbar drain placement with no sedation as patient had been exhibiting confusion throughout the day. Initial attempt made with patient sitting up. Unable to cooperate, therefore attempt in the upright position was abandoned. Further attempts made in the lateral decubitus position also limited by patient movement. Discussed with team, was informed that neurosurgery now available to place drain. Abandoned further atte mpts in favor of neurosurgical team performing procedure under sedation. TRO OPTICS ENGINEER * Carline Jerome MD - 05/05/2023 1:24 PM CSTAssociated Order(s): Critical Care Post-Procedure Diagnose(s): Hypertension, unspecified type Critical Care Performed by: Carline Jerome MD Authorized by: Carline Jerome MD CRITICAL CARE: Team: 83 CTICU Shift: AM [...] plan with the ICU team and other medical/sap security consultant staff, making frequent assessments and decisions [...] or life-threatening deterioration of the following conditions: This time was spent by me doing the following: Active problems: 1. Aortic dissection s/p stent starting at zone 1 and stenting of left subclavian. 2. Postoperative respiratory failure 3. Leukocytosis 4. Mild thrombocytopenia 5. Anemia Attending Impression / Plans: 1. Wean off sedation for possible extubation. 2. Cont carvedilol and lisinopril. PRN clevidipine as needed. 3. Cont bumex for diuresis. Decrease dose to 2 mg q 8 hourly and consider holding evening dose, 4. Awaiting bubble study to R/O PFO. However this seems less likely since he is no longer hypoxemic. 5. Cont linezolid and meropenem (empirically). WBC remains elevated.Blood cultures negative to date. Obtain sputum culture prior to extubation. 6. Mild anemia: cont to trend. Thrombocytopenia is mild and of no clinical concern. 7. Cont to trend art line pressure and NIBP on left and right arm. 8. Cont SQH for DVT prophylaxis. Update: Patient has been succesfully extubated. He has no further respiratory distress. BP control has beendifficult at times. Cont to uptitrate lisinopril and add diltiazem. Keep clevidipine for now for acute titration of hypertension. Cardiology consult (Dr Abarca) to follow and make recommendations regarding hypertension management in setting of recent aortic dissection. I spent time reviewing and interpreting data from bedside monitors, laboratory results, and imaging, I spent time discussing the management of this critically ill patient with consultants and the medical staff and I spent time documenting in the medical record TRO OPTICS ENGINEER * Carline Jerome MD - 05/04/2023 3:00 PM CSTAssociated Order(s): Critical Care Post-Procedure Diagnose(s): Hypertension, unspecified type Critical Care Performed by: Carline Jerome MD Authorized by: Calrine Jerome MD CRITICAL CARE: Team: 83 CTICU Shift: AM [...] plan with the ICU team and other medical/sap security consultant staff, making frequent assessments and decisions [...] or life-threatening deterioration of the following conditions: This time was spent by me doing the following: Active problems: 1. Aortic dissection s/p stent starting at zone 1 and stenting of left subclavian. 2. Postoperative respiratory failure 3. Leukocytosis 4. Mild thrombocytopenia 5. Headache. 6. Anemia Attending Impression / Plans: 1. Concern for esmolol tachyphylaxis. Will give 10 mg IV metoprolol now and assess esmolol needs. 2. Cont diuresis with bumex. CXR cont to show pulmonary edema but CXR is improving. 3. Cont low dose Precedex with PRN midazolam and ketamine. Resume propofol once Triglycerides have normalized. 4. Awaiting TTE with bubble study to evaluate for possible PFO. Hypoxemia could also be related to shunting with clevidipine. 5. Mild anemia: cont to follow. No active bleeding seen. 6. Cont empiric antibiotics: All cultures remains negative thus far. 7. Mild thrombocytopenia: no clinical concern. 8. Cont SQH for DVT prophylaxis. I spent time reviewing and interpreting data from bedside monitors, laboratory results, and imaging, I spent time discussing the management of this critically ill patient with consultants and the medical staff and I spent time documenting in the medical record TRO OPTICS ENGINEER * Thea Rizzo MD - 05/03/2023 9:57 PM CSTAssociated Order(s): Central Line Insertion Post-Procedure Diagnose(s): Dissection of aorta, unspecified portion of aorta (HCC) Central Line Insertion Date/Time: 05/03/2023 9:57 PM Performed by: Thea Rizzo MD Authorized by: Thea Rizzo MD [place] Protocol: RN Notified of Procedure: yes Informed consent: Risks, benefits, alternatives discussed and patient/telephone service representative/guardian agrees and accepts Patient's stated name/ matches armband: Patient unable to verbalize - armband matched to name and within medical record Consent form signed, dated, timed; matches correct patient, intended procedure and site: Yes Imaging: Pertinent imaging reviewed, correctly oriented and match to patient identifiers Lab/Diag test results: Pertinent lab/diag tests reviewed and match to patient identifiers Supplies, devices and special equipment are available: yes Indications: Vascular access, central pressure monitoring and administer vasoactive medications Anesthesia (see MAR for exact dosage) Anesthesia method: None Patient position: Trendelenburg Skin preparation: Skin prepped with 2% chlorhexidine Provider preparation: Cap, full body drape, gloves, gown, handwashing and mask Location: Right internal jugular Technique: Landmarks identified Ultrasound guidance: Pre-procedure diagnostic and real-time needle guidance Assessment: Blood return through all ports, free fluid flow and placement verified by x-ray Catheter type: Quadruple lumen Catheter size: 8.5 Fr Needle inserted, vein idenitified then guidewire inserted easily into vein: Yes Successful placement: Yes Catheter length (cm): 20 Line securement: Line sutured and dressing applied Patient tolerance: Patient tolerated the procedure well with no immediate complications Post Procedure Debrief: All guidewires, needles, sponges or other items are accounted for: yes Any special post procedure monitoring, testing or other considerations: yes (enter/request order) Cosigned by Carline Jerome MD at 05/04/2023 3:01 PM ELECTRO OPTICS ENGINEER TRO OPTICS ENGINEER TRO OPTICS ENGINEER * Carline Jerome MD - 05/03/2023 2:29 PM CSTAssociated Order(s): Critical Care Post-Procedure Diagnose(s): Hypertension, unspecified type Critical Care Performed by: Carline Jerome MD Authorized by: Carline Jerome MD CRITICAL CARE: Team: 83 CTICU Shift: AM [...] plan with the ICU team and other medical/sap security consultant staff, making frequent assessments and decisions [...] or life-threatening deterioration of the following conditions: This time was spent by me doing the following: Active problems: 1. Aortic dissection s/p stent starting at zone 1 and stenting of left subclavian. 2. Postoperative respiratory failure 3. Leukocytosis 4. Mild thrombocytopenia 5. Headache. 6. anemia Attending Impression / Plans: 1. Discuss impulse control BP goals with vascular surgery. 2. Increase carvedilol since he remains on max dose esmolol and clevdipine. 3. Postoperative respiratory failure with high PEEP and FiO2 requirements. Assessed patient and changed vent to PSV 12/5 with 60% fiO2, 4. Lasix 40 mg IV to start diuresis for pulmonary edema and generalized fluid overload. 5. Postoperative nose bleed. Seen by ENT. Nose is packed. 6. Attempt precedex as opposed to propofol for sedation. 7. Complete jie-op antibiotics. 8. Tylenol, Dilaudid and oxycodone for pain. 9. Mild anemia: but stable. 10. Hyperchloremic metabolic acidosis: Will give one amp of Bicarb. Afternoon update: Remains hypoxemic out of proportion to CXR findings. Will give labetalol and try to wean down clevidipine as potential etiology of shunting. I spent time reviewing and interpreting data from bedside monitors, laboratory results, and imaging, I spent time discussing the management of this critically ill patient with consultants and the medical staff and I spent time documenting in the medical record TRO OPTICS ENGINEER * Carline Jerome MD - 05/02/2023 5:26 PM CSTAssociated Order(s): Critical Care Post-Procedure Diagnose(s): Dissection of aorta, unspecified portion of aorta (HCC) Critical Care Performed by: Carline Jerome MD Authorized by: Carline Jerome MD CRITICAL CARE: Team: 83 CTICU Shift: AM [...] plan with the ICU team and other medical/sap security consultant staff, making frequent assessments and decisions [...] or life-threatening deterioration of the following conditions: This time was spent by me doing the following: Active problems: 1. Type B Aortic dissection 2. Leukocytosis 3. Mild thrombocytopenia 4. Headache. 5. anemia Attending Impression / Plans: 1. Repeat CT scan because of new finding of widened mediastinum. 2. BP is well controlled. Cont clevidipine and esmolol as well as coreg. 3. Tylenol and oxycodone for pain. 4. Restart SQH for repeat CT scan is negative for tamponade or type A. 5. Mild thrombocytopenia: cont to trend. 6. Mild anemia: prob from volume overload: not clinically significant. 7. Cont to monitor fluid status closely: high dose of intravenous meds for BP control will eventually lead to fluid overload. I spent time reviewing and interpreting data from bedside monitors, laboratory results, and imaging, I spent time discussing the management of this critically ill patient with consultants and the medical staff and I spent time documenting in the medical record TRO OPTICS ENGINEER documented in this encounter Consult Notes * Joaquín Abarca MD - 05/09/2023 6:39 PM CSTAssociated Order(s): IP CONSULT TO CARDIOLOGY Cardiology History and Physical Patient Name: Eriberto Chau Provider: Joaquín Abarca MD : 1990 Date of Service: 05/09/2023 CHIEF COMPLAINT: Type B aortic dissection HISTORY: 32 y.o. male with a history of type B aortic dissection. I was asked to see the patient by Dr. Arvin Herrera for consultation regarding type B aortic dissection and very difficult to control hypertension with severe hypertension. History is taken from the patient's chart as the patient has some delirium and he is not able to provide history. The patient is a 32-year-old man with a report of uncontrolled hypertension with nonadherence to medication. He awoke at about 1:00 a.m. on May 01 pain abdominal pain nausea and vomiting with outside hospital imaging demonstrating an acute type B aortic dissection. He was transferred from the outside hospital to [facility] for further management. On arrival at [facility] at 5:00 a.m. blood pressure 187/118 in the left arm. He was seen by vascular surgery and was on a a cardia mean and esmolol drip. He was admitted to the ICU and initial port blood pressure 100 over the 70s. Initial creatinine level about 1.5. Over the 1st night of admission he was having worsening upper back pain and headache and underwent CT scan which reported type B aortic dissection had propagated cranially in the mid descending aorta to the level of T4. There was no report of any evidence for rupture. Systolic blood pressure was reported as well controlled lactate was normal. He was seen by Dr. Herrera from vascular surgery and he raise concern about propagation to the level of the arch and recommended endovascular repair. Patient underwent endovascular repair of the ascending aorta with a TEVAR On 05/05 the patient had features of concern had features of concern for spinal cord ischemic stroke. He developed paraplegia and was seen by Neurology. Neuro surgery had been consulted and placed a spinal drain. MR Kashif reported displacement of the cauda equina nerve roots secondary to dorsal hematoma and severe stenosis of the spinal canal. Notes in chart from attending in the ICU report concern for spinal cord ischemia versus epidural hematoma and fluid overload. ICU team has continued with attempts at adequate spinal cord perfusion maintaining mean arterial pressure greater than 100 but systolic blood pressure less than 180. I reported that he required norepinephrine treatment when asleep but IV clevidipine while awake and agitated. In reviewing his blood pressure over the past 24 hours it has been markedly variable from a low of 157/67 to a high of 260/1 60 in most of the blood pressures are in the 160-203 over 60-85 range. In speaking with the resident caring for him in the ICU she reported that metoprolol had been triedbut he had low blood pressure reading after that but he received other beta-louie dose and tolerated it. The nurse reported that beta-louie had been given without incident. Patient currently not on any medication for blood pressure but had been variably on IV medications during the day. The patient was awake and then fell asleep. When I spoke to him it was not clear that he was able to provide any history about a family history of aortic disease or aortic dissection. There has no known history of any cocaine or methamphetamine use. On arrival drug screen positive for cannabinoids and fentanyl negative for amphetamine and negative for cocaine. ALLERGY: Amoxicillin MEDICATIONS acetaminophen, 1,000 mg, oral, Q6H SUSAN aspirin, 81 mg, oral, Daily gabapentin, 300 mg, oral, TID [Held by Provider] heparin, 5,000 Units, subcutaneous, Q8H SUSAN labetalol, 10 mg, intravenous, Once meropenem, 1,000 mg, intravenous, Q8H SUSAN methocarbamoL, 1,000 mg, oral, TID pantoprazole DR, 40 mg, oral, Daily polyethylene glycol, 17 g, oral, Daily potassium chloride, 40 mEq, intravenous, Daily [START ON 05/10/2023] QUEtiapine, 100 mg, oral, Daily QUEtiapine, 150 mg, oral, Nightly sodium chloride, 2 spray, each nostril, Q2H while awake sodium chloride 0.9%, 0.5-20 mL, intra-catheter, Q8H SUSAN PAST MEDICAL HISTORY Positive for hypertension. FAMILY HISTORY Family history positive for g father with some form of heart disease no known history SOCIAL HISTORY Social History Tobacco Use Smoking status: Never Smokeless tobacco: Never Substance and Sexual Activity Drug use: Not on file Sexual activity: Not on file Alcohol Use: Not on file Patient is not able to provide social history but drug screen negative admission. Other chart history says no history of cigarette smoking. ROS 12 system review is not obtainable because of the patient's delirium and mental status. The review of system is not obtainable in any of the organ systems with any reliability. PHYSICAL EXAM: Vitals: 05/09/23 1700 05/09/23 1800 05/09/23 1826 05/09/23 1834 BP: BP Location: Patient Position: Pulse: 84 86 96 98 Resp: 18 18 16 23 Temp: 37.8 ??C (100 ??F) (!) 38 ??C (100.4 ??F) (!) 38.1 ??C (100.6 ??F) TempSrc: Bladder SpO2: 98% 99% 95% 100% Weight: Height: Intake/Output Summary (Last 24 hours) at 05/09/2023 1840 Last data filed at 05/09/2023 1800 Gross per 24 hour Intake 3441.25 ml Output 5531 ml Net -2089.75 ml General: Patient falls asleep not able to provide History Eyes: Conjuctiva Clear ENT: External ears/nose normal Neck: Supple Respiratory: Clear to ausculation bilaterally; no wheezing/rales/rhonchi; respirations nonlabored Cardiovascular: RRR, normal S1 and S2. No S3 or S4. No murmers or rubs. Carotid upstrokes brisk bilaterally and without bruits. Normal PMI Gastrointestinal: soft, non-tender abdomen, no AAA palpable, no HSM Extremities: no cyanosis or clubbing or edema Musculoskeletal: no obvious joint deformities Skin: no obvious rash or bruising Psychiatric: Not able to assess. Neurologic: Some delirium. Oropharynx reviewed normal uvula. He does not have hypertelorism. He does not have bluish sclera. He has not have elongated fingers or toes. He does not have any significant pectus abnormality. Skin does not appear abnormal. He has not have any outward features of a syndromic aortopathy condition. Lab/Radiology/Diagnostic Review: Recent Labs Lab Units 05/09/23 0622 05/09/23 0035 05/08/23 1925 05/08/23 0108 05/07/23 1557 05/07/23 0035 HEMOGLOBIN, POC g/dL 10.2* -- < > -- < > -- HEMOGLOBIN g/dL -- 10.1* -- 9.9* -- 10.0* HEMATOCRIT % -- 30.1* -- 29.9* -- 29.5* HEMATOCRIT POC % 31.0* -- < > -- < > -- WBC K/cumm -- 14.9* -- 14.2* -- 13.6* PLATELETS K/cumm -- 274 -- 298 -- 244 < > = values in this interval not displayed. Recent Labs Lab Units 05/09/23 1254 05/09/23 0622 05/09/23 0035 SODIUM mmol/L -- -- 134* POTASSIUM PLASMA mmol/L -- -- See Comment CHLORIDE mmol/L -- -- 104 CO2 mmol/L -- -- 20* ANIONGAP mmol/L -- -- 10 GLUCOSE mg/dL -- -- 142 POC GLUCOSE MONITOR mg/dL -- 136 -- BUN SERUM mg/dL -- -- 17 CREATININE mg/dL -- -- 0.86 CALCIUM mg/dL -- -- 8.5 ALBUMIN g/dL 4.1 -- -- ALK PHOS Units/L 93 -- -- ALT Units/L 30 -- -- AST Units/L 35 -- -- BILIRUBIN TOTAL mg/dL 0.9 -- -- Recent Labs Lab Units 05/03/23 0010 TSH mcIUnit/mL 1.52 XR Chest 1 View Result Date: 05/09/2023 The current study is compared with the prior radiograph dated 05/07/2023. Redemonstrated thoracic aortic stent graft with left subclavian component. Right internal jugular central venous catheter terminates at the superior cavoatrial junction. The cardiomediastinal silhouette is stable. Small lung volumes. No consolidation or pulmonary edema. No pleural effusion, though the right costophrenic angle is excluded from the [id number]. No pneumothorax. Dictated by: Chris Turner MD The radiology attending physician has personally reviewed this study, and had reviewed and/or edited this written report and agrees with it. Electronically signed by: Hipolito Mobley M.D. XR Chest 1 View Result Date: 05/08/2023 Comparison is made to radiograph of 05/06/2023 at 10:05 PM 1. Portable chest radiograph 05/07/2023 at4:02 PM: Endovascular stent graft throughout the thoracic aorta and descending aorta appears unchanged. There is also a short segment stent in the left subclavian artery. Interval removal of the endotracheal tube. The tip of the right internal jugular central venous catheter projects over the superior cavoatrial junction. Stable mild enlargement the cardiac silhouette. The previous airspace opacity in the left upper lobe has resolved in the interval. Minimal subsegmental atelectasis in lung bases. Remainder of lungs are clear. 2. Anteroposterior view chest radiograph 05/07/2023 at 8:21 PM: Thepatient is rotated towards the left. Given that the there is no significant change of the cardiomediastinal silhouette. Slight increase atelectasis in left lower lobe. Remainder also stable. Electronically signed by: Aaron Schafer M.D. Echocardiogram report reviewed [id number] left ventricular Left ventricular ejection fraction reported at 41%. No significant valvular disease. EKG reviewed sinus rhythm left atrial Electrolytes reviewed creatinine improved to 0.86 sodium 134 hemolyzed specimen BUN [address] angiogram personally from 05/05/2023. It shows repair of the descending aorta with endovascular repair and left subclavian stenting. There is dissection below the endograft. The renal arteries arise from the true lumen. I do not see any abnormalities of the renal perfusion. Impression/Plan: Principal Problem: Dissection of aorta, unspecified portion of aorta (HCC) Active Problems: Dissection of thoracoabdominal aorta (CMS/HCC) (HCC) The patient has a type B aortic dissection which occurred about 8 days ago. He has very high blood pressure. Currently, measures at preserving spinal cord function with maintenance of high blood pressure have been the goal of the ICU team and trying to limit severe hypertension. Because of the goalof maintaining a certain mean arterial pressure, by definition his systolic blood pressure goal will be higher. When the mean arterial pressure goal changes then a systolic blood pressure goals can be treated. I would recommend a maintenance dose of the beta-louie such as metoprolol tartrate 12.5 mg every 6 hours or 25 mg b.i.d. to start and follow-up blood pressure carefully to see if this will provide some benefit in blood pressure and anti impulse control but not lead to significant lowering of the systolic blood pressure. Additional agents can be given as allow depending upon blood pressure and blood pressure goals. I recommend his ICU team discussed this sort of a strategy and then decide about a medication and close follow-up. In speaking to his nurse, at present he is on no medication while asleep but then when he awakens on IV medications for blood pressure reduction. He has not having any spontaneous hypotension. With regard to the type B dissection is most likely due to uncontrolled hypertension. He does not have any of his for aortopathy in the proximal aortic segment aortic root dilatation and he does not have any syndromic form on exam. When he is more awake and alert we can discuss further about any family history of aortopathy make determination about any further family screening or genetic evaluation. Thank you for the opportunity of seeing him for consultation. Joaquín Abarca MD TRO OPTICS ENGINEER * Gardenia Resendiz LCSW - 05/06/2023 11:39 AM CSTAssociated Order(s): IP CONSULT TO SOCIAL WORK Social work acknowledges order for patient's family seeking additional community resources. Social work spoke with patient's significant other Tania ([phone]). She stated that the house hold consists of patient, herself and 7 children. Both herself and patient work, however it is uncertain how long patient will be unable to work. Patient does not have any short term or fci benefits through his employer. Patient has already applied for food stamps, application is pending. Social work discussed referrals being sent through [employer] for mortgage payment assistance and food assistance, Tania provided consent. Referrals sent to [facility] and [place] for mortgage assistance and [employer] for food assistance. No other social work needs at this time. Gardenia Resendiz LCSW TRO OPTICS ENGINEER * Dewayne Looney MD - 05/06/2023 8:38 AM CSTAssociated Order(s): IP CONSULT TO NEUROLOGY Images from the original note were not included. Neurology Consult Service Initial Consult Note Patient: Eriberto Chau Visit date: 05/01/2023 Requesting Provider or Service: Faustino Herrera MD, Vascular Surgery Reason for Consult: spinal cord infarct Subjective HISTORY OF PRESENT ILLNESS Eriberto Chau is a 32 y.o. man with a history of hypertension who presented with type B aortic dissection on 05/01/2023. His initial symptoms where acute chest and abdominal pain as well as dyspnea. The CT showed a thoracoabdominal aortic dissection with likely entry tear around level of diaphragm terminating above aortic bifurcation. The celiac and left renal is from false lumen and mesneteric and right renal from true lumen. He underwent thoracic endovascular repair 05/02. Patient was extubated 05/05 and reported paraplegia without hypoesthesia. Neurosurgery consulted and placed lumbar drain and recommended MAP>90. An MRI total spine is pending. Patient unable to provide history PAST MEDICAL & SURGICAL HISTORY hypertension FAMILY HX: unknown SOCIAL HX: reports that he has never smoked. He has never used smokeless tobacco. OUTPATIENT MEDICATIONS None known INPATIENT MEDICATIONS Scheduled Medications: Scheduled Medications Medication Dose Route Frequency acetaminophen (TYLENOL) tablet 1,000 mg 1,000 mg oral Q6H [facility] aspirin chewable tablet 81 mg 81 mg oral Daily bumetanide (BUMEX) 0.25 mg/mL injection 2 mg 2 mg intravenous Q6H [facility] carvediloL (COREG) tablet 50 mg 50 mg oral BID chlorhexidine (PERIDEX) 0.12 % solution 15 mL 15 mL swish & spit BID dilTIAZem (CARDIZEM) injection 15 mg 15 mg intravenous Q8H docusate (COLACE) 10 mg/mL oral liquid 100 mg 100 mg oral BID [Held by Provider] heparin 5,000 unit/mL injection 5,000 Units 5,000 Units subcutaneous Q8H [facility] lidocaine (ASPERCREME) 4 % patch 2 patch 2 patch transdermal Q24H lidocaine (XYLOCAINE) 10 mg/mL (1 %) injection 50 mg 5 mL subcutaneous Once lidocaine (XYLOCAINE) 20 mg/mL (2 %) injection 200 mg 10 mL subcutaneous Once lidocaine PF (XYLOCAINE) 10 mg/mL (1 %) preservative free injection - ADS Override Pull lidocaine PF (XYLOCAINE) 10 mg/mL (1 %) preservative free injection 200 mg 20 mL infiltration Once linezolid (ZYVOX) 600 mg/300 mL in dextrose 5% (premix) 600 mg 600 mg intravenous Q12H SUSAN lisinopriL (PRINIVIL,ZESTRIL) tablet 20 mg 20 mg oral Daily meropenem (MERREM) 1,000 mg/110 mL in sodium chloride 0.9% (premix) 1,000 mg 1,000 mg intravenous Q8H SUSAN metoprolol (LOPRESSOR) tablet 100 mg 100 mg oral BID polyethylene glycol (MIRALAX) packet 17 g 17 g oral Daily potassium chloride 20 mEq/50 mL in sterile water (premix) 20 mEq 20 mEq intravenous Q6H potassium chloride 40 mEq/100 mL in sterile water (premix) 40 mEq 40 mEq intravenous Once senna 1.76 mg/mL syrup 8.8 mg 8.8 mg oral BID sodium chloride (OCEAN) 0.65 % nasal spray 2 spray 2 spray each nostril Q2H while awake sodium chloride 0.9% flush 0.5-20 mL 0.5-20 mL intra-catheter Q8H [facility] Continuous Medications: Current Facility-Administered Medications Medication Dose Route Frequency Last Admin clevidipine 0-32 mg/hr intravenous Titrated 2 mg/hr at 05/06/23 0830 dexmedeTOMIDine 0-1.5 mcg/kg/hr intravenous Titrated 0.7 mcg/kg/hr at 05/06/23 0800 Lactated Ringer's 10 mL/hr intravenous Continuous 10 mL/hr at 05/06/23 0800 sodium chloride 0.9% 3-12 mL/hr intra-catheter Continuous 3 mL/hr at 05/06/23 0800 sodium chloride 0.9% 3-12 mL/hr intra-catheter Continuous 3 mL/hr at 05/02/23 2300 PRN Medications: albuterol HFA, 2 puff sodium chloride 0.9%, 30 mL, 30 mL at 05/06/23 0827 sodium chloride 0.9%, 30 mL, 30 mL at 05/03/23 0855 HYDROmorphone, 0.5 mg, 0.5 mg at 05/06/23 0410 lidocaine PF, metoprolol, 10 mg, 10 mg at 05/05/23 1709 midazolam, 2 mg, 2 mg at 05/06/23 0420 ondansetron, 4 mg, 4 mg at 05/06/23 0555 oxyCODONE, 5 mg, 5 mg at 05/06/23 0543 potassium chloride, 40 mEq, 40 mEq at 05/05/232001 sodium chloride 0.9%, 0.5-20 mL REVIEW OF SYSTEMS A complete review of symptoms was performed including constitutional symptoms, cardiovascular, respiratory, gastrointestinal, genitourinary, musculoskeletal, neurological, psychiatric, endocrine, immunologic, integumentary, hematological, eyes, ears, nose, mouth and throat. All symptoms negative except as per HPI. Objective PHYSICAL EXAM Vitals: 24 hr Min/Max: Temp Min: 37.5 ??C (99.5 ??F) Max: 38.5 ??C (101.3 ??F) Pulse Min: 59 Max: 99 BP Min: 101/56 Max: 181/85 Resp Min: 9 Max: 36 SpO2 Min: 91 % Max: 100 % Most Recent: Vitals: 05/06/23 0800 BP: Pulse: 77 Resp: 19 Temp: 37.5 ??C (99.5 ??F) SpO2: 98% Height: 175.3 cm (5' 9 ) Weight: 111.6 kg (246 lb 0.5 oz) BMI (Calculated): 36.3 GENERAL EXAMINATION CONSTITUTIONAL: no acute distress, resting comfortably HENT: normocephalic, atraumatic, mucous membranes moist EYES: anicteric sclera PULM: no increased work of breathing CV/EXT: Extremities are warm and well perfused; no visible edema SKIN: dry, no suspicious rashes or lesions noted PSYCH: calm and cooperative, eye contact appropriate for medical condition NEUROLOGIC EXAM: on 0.7=>0.5 dex Mental Status:The patient is drowsy and oriented to person and place. Language: minimal speech output. Unable to name objects on NIHSS card. Follows one step commands but not cross body. Cranial Nerves II-XII: PERRL. EOMi without nystagmus. Face is symmetric, There is no dysarthria or dysphonia. Tongue protrudes midline. Motor: exam confounded by mental status on sedation RUL: at least 4/5 JUDI at least 4/5 RLL prox 3/5, distal 2/5 LLL prox 2/5, distal 2/5 Reflexes: defer Sensation: coarse touch is normal in all four extremities. Coordination: no chorea myoclonus or tremor Ambulation:defer Lab/Radiology/Diagnostic Review: Basic Labs ELA reviewed 05/06 no major electrolyte derangements, kidney and liver markers okay Mildly low iCal but >4.25 Reactive Leukocytosis, moderate anemia, normal platlets Blood gas shows compensated metabolic alkalosis (expected pCO2=44.5, actual=47) Neuro Diagnostics: No results found for this or any previous visit. Assessment/Plan ASSESSMENT AND PLAN Mr. Chau is a 32 y.o. man with hypertension who presents with type B aortic dissection now POD 4s/p repair. Reported paraplegia without hypoesthesia on day of extubation POD 3. Now s/p lumbar drain and vasopressors on board with goal MAP>90. 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 S/p lumbar drain. Agree with vasopressors. We will follow-up on spine MRI A1c, lipid panel, SMART consult orderset, depression screen (JAQUELINE 304) Aspirin 81 as already ordered is reasonable No indication for statin for secondary prevention given mechanism of stroke carotid imaging and TTE not indicated given mechanism and location of stroke Telemetry, neuro checks per protocol Thank you for this consult. Please do not hesitate to contact us with any questions or concerns. If you have any questions or need re-evaluation in the interim, please contact neurology consults senior resident at [phone] and specify that this consult was staffed with Consult Team A. Dewayne Looney MD Resident Physician Neurology, PGY-4 05/06/23 Cosigned by Bridgett Gonzalez MD at 05/06/2023 10:47 PM ELECTRO OPTICS ENGINEER TRO OPTICS ENGINEER TRO OPTICS ENGINEER Associated attestation - Bridgett Gonzalez MD - 05/06/2023 10:47 PM ELECTRO OPTICS ENGINEER Attending Documentation: I have seen and examined the patient on 05/06/23. Assessment/plan: Mr. Chau is a 32 year old male who presented with type B aortic dissection s/p repair, consulted for paraplegia, likely 2/2 spinal cord ischemic stroke. I discussed findings diagnosis and management with Dr. Looney. I have reviewed and discussed the above note with the resident/fellow and agree with the findings and plan as documented. Bridgett Gonzalez MD, MSc * Carlos Alberto Nix MD PhD - 05/05/2023 7:50 PM CSTAssociated Order(s): IP CONSULT TO NEUROSURGERY Neurosurgery Consultation Patient: Eriberto Chau CSN: [id number] : 1990 Admission date: 05/01/2023 Length of stay (days): 4 Consulting: Dr. Smith Reason for consultation: Concern for spinal cord infarct History of present illness: Eriberto Chau is a 32 y.o. male on aspirin 81 mg daily with past medical history of poorly controlled hypertension who is currently admitted to the cardiac ICU due to a type B aortic dissection status post repair who was extubated today and is now unable to move his legs raising concern for spinal cord infarct. The patient presented on 05/01/2023 with acute chest pain, abdominal pain and shortness of breath for 6 hours. Systolic blood pressure was in the 160s. A nicardipine drip was started. The patient was found to have an aortic dissection which was repaired on 05/02/2023. The patient has been intubated since then due to respiratory insufficiency. The patient was able to be extubated today. Upon wakening, the patient reported inability to move his legs. He has full sensation in his legs. He denies weakness and paresthesias in his arms. Review of systems: A full review of systems was completed and was negative unless otherwise stated in the HPI. Past medical/surgical history: No past medical history on file. No past surgical history on file. Allergies: Allergies Allergen Reactions Amoxicillin Hives Medications: HOME MEDICATIONS : Not on File Social history: The patient's primary contact is his mother Meron ([phone]). Family history: No family history on file. Physical Examination: Alert, Awake, and Oriented x3, Regards, Follows Commands PERRL, EOMI, Face Symmetric, Tongue Midline D B T HG IH WE RUE: 5 5 5 5 5 5 LUE: 5 5 5 5 5 5 HF KE KF DF PF EHL RLE: 0 0 0 0 0 0 LLE: 0 0 0 0 0 0 BLE do not move to noxious stimuli No pronator drift Sensation intact and symmetric in all extremities to light touch Morris's Sign Negative, no ankle clonus Reflexes 2+ throughout Psych: normal mood Constitutional: no acute distress HENT: normocephalic Cardiovascular: normal rate Pulmonary: normal respiratory effort Abdominal: non-distended Musculoskeletal: no deformity Imaging and Labs: No neurological imaging available for review Assessment and Plan Eriberto Chau is a 32 y.o. 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 Please obtain updated coagulation studies (PT/INR and PTT) Neurosurgery available to place lumbar drain MAP > 90 or as high as medically safe to do per cardiac ICU MRI total spine without contrast Neurology consult for recommendations for spinal cord infarct This plan has been discussed with the chief resident and attending transformation manager. Carlos Alberto Nix MD PhD Cosigned by Jaden Smith MD at 05/06/2023 11:37 PM ELECTRO OPTICS ENGINEER TRO OPTICS ENGINEER TRO OPTICS ENGINEER TRO OPTICS ENGINEER TRO OPTICS ENGINEER TRO OPTICS ENGINEER TRO OPTICS ENGINEER Associated attestation - Jaden Smith MD - 05/06/2023 11:37 PM ELECTRO OPTICS ENGINEER I have seen and examined the patient on 05/06/23. I agree with the findings and plan of care as documented in the resident's/fellow's note. Shortly after consultation last night after our team evaluated the patient and were reviewing patient's chart, imaging and finalizing plan, we were notified by the ICU team that they would attempt toplace a LD. We recommended MAP augmentation to improve spinal cord perfusion as is standard with spinal cord injury. The ICU reportedly attempted multiple times to place a lumbar drain for over 2 hours. We were then consulted again to evaluate the patient and place a drain. Our team then successfully placed the drain with a single attempt. We then deferred to the primary team about CSF drainage volume as per their standard protocol. We also recommended an MRI spine to rule out compressive lesion (e.g. epidural or subdural hematoma from prior anticoagulation, and recent LD attempts. This was attempted but patient could not lay flat. We also recommended neurology consult for assistance with management of potential spinal cord ischemia. ICU team felt that patient would need to be intubated to safely obtain an MRI. His mother declined intubation for Mri. Today afternoon, I had a long discussion with patient's mother and father about utility of imaging to rule out compressive pathology, although suspicion was high for spinal cord ischemia given motor weakness without sensory loss (as best as we could tell). We discussed the pros and cons of obtaining an MRI, with patient's mother's prim young concern being need for intubation for MRI as deemed necessary by the ICU team. Patient's motherrequested a joint discussion with the ICU attending. I contacted Dr. Locke who then joined us and we had a long discussion about the utility of MRI to rule out any lesion that could necessitate procedural intervention, and the risk of intubating him again for the MRI. After extensive deliberations, patient's mother let us know that she would like to get the MRI performed. We discussed with ICU about getting this done urgently this evening. We will follow up on the MRI and provide additional recs as needed. * Teagan Kwong MD - 05/03/2023 8:38 AM CST Otolaryngology - Head & Neck Surgery Consult Attending Physician: Les Reason for Consult: No data found Requesting Team: Anesthesia Requesting Provider: Dr. Isai Lilly Eriberto Chau is a 32 y.o. male who is seen in consultation for epistaxis. Patient underwent thoracic aortic endovascular repair subclavian artery stent placement during which he was kept on heparin, and reversed with protamine at the end of the case. Per Anesthesia SHANK BREAKER report, the patient began having left- sided epistaxis during inversion from anesthesia and was kept intubated. The nose had not been instrumented during the case. There is no known recent history of nasal trauma. The anesthesia team treated the patient with Afrin and pressure and epistaxis slowed, however it continued to redevelop with coughing during attempts at emergence. No past medical history on file. Patient Active Problem List Diagnosis Dissection of aorta, unspecified portion of aorta (HCC) Dissection of thoracoabdominal aorta (CMS/HCC) (HCC) No past surgical history on file. Social History Tobacco Use Smoking status: Never Smokeless tobacco: Never Substance and Sexual Activity Drug use: Not on file Sexual activity: Not on file Alcohol Use: Not on file No family history on file. Allergies Allergen Reactions Amoxicillin Hives No medications prior to admission. Review of Systems: Not obtained due to patient's mental status Objective Physical Exam: Vitals: 05/03/23 0600 05/03/23 0700 05/03/23 0725 05/03/23 0739 BP: 123/50 BP Location: Patient Position: Pulse: 67 69 70 72 Resp: 20 20 Temp: TempSrc: SpO2: 94% 94% 94% Weight: Height: General: Intubated under general anesthesia Head: NC, AT Eyes: Not examined Ears: Not examined Nose: Anterior rhinoscopy demonstrates left anterior septum losing Mouth: ETT in place. Anesthesia performed laryngoscopy with GlideScope which demonstrated no activeoral cavity or oropharynx bleeding source. Neck: Soft and flat. CV: RRR Pulm: On vent Skin: WWP Neuro: Sedated Lab/Radiology/Diagnostic Review: Laboratory review: Lab results in the last 12 hours: Recent Results (from the past 12 hour(s)) POC Blood Gas and Chemistries, Arterial - Collection Time: 05/02/23 9:29 PM Result Value Ref Range pH, Art POC 7.27 (L) 7.35 - 7.45 pCO2, Art POC 41 35 - 45 mmHg pO2, Art POC 56 (L) 83 - 108 mmHg Na, POC 137 135 - 145 mmol/L K POC 4.0 3.3 - 4.9 mmol/L Cl, POC 111 (H) 97 - 110 mmol/L Ionized Ca, POC 4.67 4.50 - 5.10 mg/dL Glucose, POC 101 70 - 199 mg/dL Lactate, POC 1.0 0.7 - 2.2 mmol/L SO2 (natalia) arterial 89 (L) 90 - 95 % Base excess, POC -7.6 mmol/L HCO3, Art POC 19 (L) 20 - 30 mmol/L Hct, POC 30.0 (L) 41.4 - 51.6 % O2 Sat, Art POC (Calc) 84 % Total Hb, POC 9.9 (L) 13.8 - 17.2 g/dL CBC without differential Collection Time: 05/02/23 9:33 PM Result Value Ref Range WBC 12.4 (H) 3.8 - 9.9 K/cumm Hgb 9.9 (L) 13.0 - 17.5 g/dL Hct 28.8 (L) 38.9 - 50.3 % Plt 105 (L) 150 - 400 K/cumm MPV 10.1 9.1 - 12.3 fL RBC 3.18 (L) 4.30 - 5.80 M/cumm MCV 90.6 81.3 - 96.4 fL MCH 31.1 27.1 - 33.3 pg MCHC 34.4 32.3 - 35.7 g/dL RDW CV 12.4 11.1 - 14.9 % RDW SD 40.8 35.7 - 48.1 fL NRBC abs 0.03 (H) 0.00 - 0.01 K/cumm Phosphorus Collection Time: 05/02/23 9:55 PM Result Value Ref Range Phosphorus, pl 3.5 2.3 - 4.5 mg/dL Basic metabolic panel Collection Time: 05/02/23 9:55 PM Result Value Ref Range Sodium 136 135 - 145 mmol/L Potassium, pl 4.5 3.3 - 4.9 mmol/L Chloride 107 97 - 110 mmol/L CO2 20 (L) 22 - 32 mmol/L Anion gap 9 2 - 15 mmol/L BUN 15 6 - 25 mg/dL Creatinine 1.36 (H) 0.80 - 1.30 mg/dL Glucose 105 70 - 199 mg/dL Calcium 7.6 (L) 8.5 - 10.3 mg/dL Magnesium Collection Time: 05/02/23 9:55 PM Result Value Ref Range Magnesium 1.8 1.4 - 2.5 mg/dL Calcium, ionized Collection Time: 05/02/23 9:55 PM Result Value Ref Range Calcium, Ionized 4.61 4.50 - 5.10 mg/dL eGFR Collection Time: 05/02/23 9:55 PM Result Value Ref Range eGFR 72 >=60 mL/min/1.73 m2 POC Blood Gas and Chemistries, Arterial - Collection Time: 05/02/23 10:13 PM Result Value Ref Range pH, Art POC 7.29 (L) 7.35 - 7.45 pCO2, Art POC 35 35 - 45 mmHg pO2, Art POC 68 (L) 83 - 108 mmHg Na, POC 136 135 - 145 mmol/L K POC 3.9 3.3 - 4.9 mmol/L Cl, POC 111 (H) 97 - 110 mmol/L Ionized Ca, POC 4.56 4.50 - 5.10 mg/dL Glucose, POC 105 70 - 199 mg/dL Lactate, POC 1.1 0.7 - 2.2 mmol/L SO2 (natalia) arterial 95 90 - 95 % Base excess, POC -9.0 mmol/L HCO3, Art POC 17 (L) 20 - 30 mmol/L Hct, POC 29.0 (L) 41.4 - 51.6 % O2 Sat, Art POC (Calc) 91 % Total Hb, POC 9.8 (L) 13.8 - 17.2 g/dL POC Blood Gas and Chemistries, Arterial - Collection Time: 05/02/23 11:16 PM Result Value Ref Range pH, Art POC 7.34 (L) 7.35 - 7.45 pCO2, Art POC 32 (L) 35 - 45 mmHg pO2, Art POC 70 (L) 83 - 108 mmHg Na, POC 135 135 - 145 mmol/L K POC 4.1 3.3 - 4.9 mmol/L Cl, POC 110 97 - 110 mmol/L Ionized Ca, POC 4.68 4.50 - 5.10 mg/dL Glucose, POC 117 70 - 199 mg/dL Lactate, POC 0.9 0.7 - 2.2 mmol/L SO2 (natalia) arterial 96 (H) 90 - 95 % Base excess, POC -7.6 mmol/L HCO3, Art POC 17 (L) 20 - 30 mmol/L Hct, POC 31.0 (L) 41.4 - 51.6 % O2 Sat, Art POC (Calc) 93 % Total Hb, POC 10.4 (L) 13.8 - 17.2 g/dL CBC without differential Collection Time: 05/03/23 12:10 AM Result Value Ref Range WBC 14.6 (H) 3.8 - 9.9 K/cumm Hgb 10.7 (L) 13.0 - 17.5 g/dL Hct 29.7 (L) 38.9 - 50.3 % Plt 121 (L) 150 - 400 K/cumm MPV 10.6 9.1 - 12.3 fL RBC 3.38 (L) 4.30 - 5.80 M/cumm MCV 87.9 81.3 - 96.4 fL MCH 31.7 27.1 - 33.3 pg MCHC 36.0 (H) 32.3 - 35.7 g/dL RDW CV 12.4 11.1 - 14.9 % RDW SD 39.9 35.7 - 48.1 fL NRBC abs 0.00 0.00 - 0.01 K/cumm Basic metabolic panel Collection Time: 05/03/23 12:10 AM Result Value Ref Range Sodium 134 (L) 135 - 145 mmol/L Potassium, pl See Comment 3.3 - 4.9 mmol/L Chloride 106 97 - 110 mmol/L CO2 18 (L) 22 - 32 mmol/L Anion gap 10 2 - 15 mmol/L BUN 16 6 - 25 mg/dL Creatinine 1.27 0.80 - 1.30 mg/dL Glucose 118 70 - 199 mg/dL Calcium 7.7 (L) 8.5 - 10.3 mg/dL Magnesium Collection Time: 05/03/23 12:10 AM Result Value Ref Range Magnesium 1.9 1.4 - 2.5 mg/dL Phosphorus Collection Time: 05/03/23 12:10 AM Result Value Ref Range Phosphorus, pl 2.1 (L) 2.3 - 4.5 mg/dL Lactate Collection Time: 05/03/23 12:10 AM Result Value Ref Range Lactate 1.0 0.7 - 2.0 mmol/L Blood gas, arterial Collection Time: 05/03/23 12:10 AM Result Value Ref Range pH, Art 7.35 7.35 - 7.45 PCO2, Arterial 32 (L) 35 - 45 mmHg PO2, Arterial 110 (H) 83 - 108 mmHg HCO3 Art (Calculated) 18 (L) 20 - 30 mmol/L BE, art -7 mmol/L O2 Sat Art (Measured) 98 (H) 90 - 95 % Fibrinogen Collection Time: 05/03/23 12:10 AM Result Value Ref Range Fibrinogen 274 170 - 400 mg/dL eGFR Collection Time: 05/03/23 12:10 AM Result Value Ref Range eGFR 78 >=60 mL/min/1.73 m2 Blood gas, arterial Collection Time: 05/03/23 2:08 AM Result Value Ref Range pH, Art 7.34 (L) 7.35 - 7.45 PCO2, Arterial 32 (L) 35 - 45 mmHg PO2, Arterial 120 (H) 83 - 108 mmHg HCO3 Art (Calculated) 18 (L) 20 - 30 mmol/L BE, art -8 mmol/L O2 Sat Art (Measured) 99 (H) 90 - 95 % Lactate Collection Time: 05/03/23 2:08 AM Result Value Ref Range Lactate 1.2 0.7 - 2.0 mmol/L POC Blood Gas and Chemistries, Arterial - Collection Time: 05/03/23 3:28 AM Result Value Ref Range pH, Art POC 7.34 (L) 7.35 - 7.45 pCO2, Art POC 28 (L) 35 - 45 mmHg pO2, Art POC 81 (L) 83 - 108 mmHg Na, POC 135 135 - 145 mmol/L K POC 4.2 3.3 - 4.9 mmol/L Cl, POC 109 97 - 110 mmol/L Ionized Ca, POC 5.30 (H) 4.50 - 5.10 mg/dL Glucose, POC 124 70 - 199 mg/dL Lactate, POC 1.0 0.7 - 2.2 mmol/L SO2 (natalia) arterial 98 (H) 90 - 95 % Base excess, POC -9.4 mmol/L HCO3, Art POC 15 (L) 20 - 30 mmol/L Hct, POC 32.0 (L) 41.4 - 51.6 % O2 Sat, Art POC (Calc) 95 % Total Hb, POC 10.6 (L) 13.8 - 17.2 g/dL Procedure At time of my evaluation However, the patient subsequently developed coughing and desaturations which improved with deep suctioning. Clement tip suction was used to clear out clot from the bilateral nasal cavities. Active bleeding was noted from the left anterior septum. This was controlled with silver nitrate cauterization, Afrin, and absorbable packing (gelfoam and surgicel) into the left nasal cavity. The patient subsequentlyhad blood suctioned from the right nasal cavity and the oral cavity and oropharynx, which were examined without evidence of bleeding source. The bilateral nares were repacked with FloSeal, Gelfoam, Surgicel. Assessment/Plan 32 y.o. male with undergoing thoracic aorta repair with intraoperative epistaxis, s/p absorbable packing, kept intubated and transferred to the MICU. -[place] nasal spray QID, [place] nasal gel around nares BID to keep moisturized. -BP control, SBP goal <140 -Humidification -In the event of an episode of epistaxis, please spray the nose generously with Afrin on both sides. Have the patient hold pressure on the soft part of the nose for 20 minutes uninterrupted. Have thepatient lean forward during episodes of epistaxis to avoid swallowing blood, which can cause nausea. If epistaxis does not resolve after these measures are taken, please call ENT for assistance. -No nose blowing. Open mouth sneezing only. -No foreign bodies in the nose. No gauze, kleenex, fingers, suction devices. -Stool softeners to avoid straining. Please call ENT with any questions or concerns regarding the care of this patient. Teagan Kwong MD Resident Physician, PGY-3 Otolaryngology-Head & Neck Surgery Weekdays during daytime hours: [facility] > Otolaryngology > [facility] Established Consults Weekends or after 6pm M-F: [facility]>Otolaryngology>[facility] Resident [facility] Primary or ENT consult phone: Cosigned by Kaylie Saldana MD at 05/05/2023 8:49 PM ELECTRO OPTICS ENGINEER TRO OPTICS ENGINEER TRO OPTICS ENGINEER Associated attestation - Kaylie Saldana MD - 05/05/2023 8:49 PM ELECTRO OPTICS ENGINEER I have seen and examined the patient on 05/03/23. I agree with the findings and plan of care as documented in the resident's/fellow's note.. * Gladys Gallagher NP - 05/02/2023 11:26 AM CSTAssociated Order(s): IP CONSULT TO CARDIAC SURGERY Cardiothoracic Surgery Consult Referring Physician/Service: Dr. Duncan Consult Attending Staffing Case: Dr. Sanchez Reason for consult: Other: Type A dissection - needs cardiac surgery eval Chest Pain Patient is a 32 y.o. male with chief complaint of chest and back pain. HPI: 32y/o male with uncontrolled HTN who presented to an OSH ER with acute onset shortness of breath, chest pain and back pain. 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 He was transferred to [facility] for further evaluation and treatment. Here, he was seen by vascular surgery and admitted to the CTICU for impulse control. Here, he has been on an esmolol and nicardipine gtt. Last night, when trying to get up to urinate, he had worsening back and flank pain with increase in SBP. He was given meds for pain. This morning, he had worsening upper back pain and headache and a repeat CTA was ordered. 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 . CTS is consulted for concern for atype a dissection. Currently, his blood pressure is well controlled with SBP in the 90s. He continues to have intermittent chest right arm and upper back pain. He states it is not there currently and attributes this torecent pain medications. His labs are significant for Na 134, CR 1.19, lactate 0.9, WBC 14.9, HGB 10.9, PLT S1 108,000. The following conditions are considered:present at time of consult and are being treated or evaluated. Anemia: Undertermined and being evaluated: Electrolyte disorders: Hyponatremia Obesity: Class II Obesity (BMI 35.0-39.9) Other: HTN Peripheral Vascular Disease: Type B aortic dissection-see above Class I - No limitation of physical activity No past medical history on file. No past surgical history on file. HOME MEDICATIONS : Not on File Current Facility-Administered Medications: acetaminophen (TYLENOL) tablet 1,000 mg, 1,000 mg, oral, Q6H SUSAN, Manuel Jarrett MD, 1,000mg at 05/02/23 1225 Carrier Fluids for Secondary Infusion - 0.9% Sodium Chloride, 30 mL, intravenous, PRN, Manuel Jarrett MD carvediloL (COREG) tablet 25 mg, 25 mg, oral, BID with meals (bkfst, dinner), Radha Duran, TREE clevidipine (CLEVIPREX) 50 mg/100 mL (0.5 mg/mL) (premix), 0-32 mg/hr, intravenous, Titrated, Aroldo Kaplan MD, Last Rate: 64 mL/hr at 05/02/23 1306, 32 mg/hr at 05/02/23 1306 cyclobenzaprine (FLEXERIL) tablet 10 mg, 10 mg, oral, TID PRN, Ann Clay MD, 10 mg at 05/02/23 1225 dilTIAZem (CARDIZEM) injection 5 mg, 5 mg, intravenous, Q15 Min PRN, Ann Clay MD, 5 mgat 05/02/23 0811 esmolol in 0.9% sodium chloride (BREVIBLOC) 2,500 mg/250 mL (10 mg/mL) infusion (premix), 0-300 mcg/kg/min, intravenous, Titrated, Ann Clay MD, Last Rate: 187.7 mL/hr at 05/02/23 1310, 300 mcg/kg/min at 05/02/23 1310 HYDROmorphone (DILAUDID) injection 0.4 mg, 0.4 mg, intravenous, Q2H PRN, Ann Clay MD, 0.4 mg at 05/02/23 1225 lidocaine (ASPERCREME) 4 % patch 2 patch, 2 patch, transdermal, Q24H, Ann Clay MD, 2 patch at 05/02/23 0311 lidocaine in dextrose 5% 2 g/250 mL (8 mg/mL) infusion (premix), 1 mg/kg/hr ([place]), intravenous, Continuous, Manuel Jarrett MD, Last Rate: 8.84 mL/hr at 05/02/23 1306, 1 mg/kg/hr at 05/02/23 1306 ondansetron (ZOFRAN) injection 4 mg, 4 mg, intravenous, Q6H PRN, Manuel Jarrett MD, 4 mg at 05/02/23 1001 oxyCODONE (ROXICODONE) tablet 10 mg, 10 mg, oral, Q4H PRN, Manuel Jarrett MD, 10 mg at 05/02/23 1306 senna (SENOKOT) tablet 1 tablet, 1 tablet, oral, BID, 1 tablet at 05/02/23 0838 OR senna 1.76 mg/mL syrup 8.8 mg, 8.8 mg, feeding tube, BID, Manuel Jarrett MD sodium chloride 0.9% flush 0.5-20 mL, 0.5-20 mL, intra-catheter, Q8H SUSAN, Manuel Jarrett MD, 10 mL at 05/02/23 0509 sodium chloride 0.9% flush 0.5-20 mL, 0.5-20 mL, intra-catheter, PRN, Manuel Jarrett MD sodium chloride 0.9% solution, 3-12 mL/hr, intra-catheter, Continuous, Manuel Jarrett MD, Last Rate: 3 mL/hr at 05/02/23 0700, 3 mL/hr at 05/02/23 0700 Allergies Allergen Reactions Amoxicillin Hives Social History Tobacco Use Smoking status: Never Smokeless tobacco: Never Substance and Sexual Activity Drug use: Not on file Sexual activity: Not on file Alcohol Use: Not on file No family history on file. Review of Systems: Must be review of 10 systems: Review of Systems Constitutional: Negative. HENT: Negative. Eyes: Negative. Respiratory: Positive for shortness of breath. Cardiovascular: Positive for chest pain. Negative for palpitations and leg swelling. Gastrointestinal: Negative. Endocrine: Negative. Genitourinary: Negative. Musculoskeletal: Negative. Skin: Negative. Allergic/Immunologic: Negative. Neurological: Negative. Hematological: Negative. Psychiatric/Behavioral: Positive for confusion. All other systems reviewed and are negative. Objective Vitals: 24hr Min/Max: Temp Min: 36.6 ??C (97.8 ??F) Max: 36.9 ??C (98.5 ??F) Pulse Min: 66 Max: 80 BP Min: 70/34 Max: 120/70 Resp Min: 6 Max: 29 SpO2 Min: 91 % Max: 100 % Most Recent : Vitals: 05/02/23 1300 BP: 97/60 Pulse: 68 Resp: 19 Temp: SpO2: 91% I/O last 2 completed shifts: In: 6070 [I.V.:6070] Out: 765 [Urine:765] I/O this shift: In: 1776.9 [I.V.:1776.9] Out: 235 [Urine:235] Physical Exam: Must include at least two elements each from the nine organ systems for comprehensive exam : Physical Exam Vitals reviewed. Constitutional: Appearance: He is obese. He is ill-appearing. HENT: Head: Normocephalic and atraumatic. Eyes: Extraocular Movements: Extraocular movements intact. Pupils: Pupils are equal, round, and reactive to light. Cardiovascular: Rate and Rhythm: Normal rate and regular rhythm. Heart sounds: Normal heart sounds. Pulmonary: Effort: Pulmonary effort is normal. Breath sounds: Normal breath sounds. Abdominal: Palpations: Abdomen is soft. Musculoskeletal: General: Normal range of motion. Cervical back: Neck supple. Right lower leg: No edema. Left lower leg: No edema. Skin: General: Skin is warm and dry. Neurological: General: No focal deficit present. Mental Status: He is alert. Comments: A&O x3, slow to answer some questions-appears sleepy Psychiatric: Mood and Affect: Mood is anxious. Lab/Radiology/Diagnostic Review: Laboratory review: reviewed the laboratory result(s) as below Imaging review: I have reviewed the result(s) as below Echocardiogram review: No recent results to review Lab results in the last 24 hours: Recent Results (from the past 24 hour(s)) CBC without differential Collection Time: 05/01/23 5:10 PM Result Value Ref Range WBC 15.0 (H) 3.8 - 9.9 K/cumm Hgb 11.1 (L) 13.0 - 17.5 g/dL Hct 32.3 (L) 38.9 - 50.3 % Plt 110 (L) 150 - 400 K/cumm MPV 9.0 (L) 9.1 - 12.3 fL RBC 3.66 (L) 4.30 - 5.80 M/cumm MCV 88.3 81.3 - 96.4 fL MCH 30.3 27.1 - 33.3 pg MCHC 34.4 32.3 - 35.7 g/dL RDW CV 12.6 11.1 - 14.9 % RDW SD 41.1 35.7 - 48.1 fL NRBC abs 0.00 0.00 - 0.01 K/cumm POCT glucose Collection Time: 05/01/23 5:10 PM Result Value Ref Range Glucose, POC 104 70 - 199 mg/dL Lactate, whole blood Collection Time: 05/01/23 5:10 PM Result Value Ref Range Lactate, bld 1.5 0.7 - 2.0 mmol/L Comprehensive metabolic panel Collection Time: 05/01/23 5:50 PM Result Value Ref Range Sodium 139 135 - 145 mmol/L Potassium, pl See Comment 3.3 - 4.9 mmol/L Chloride 106 97 - 110 mmol/L CO2 23 22 - 32 mmol/L Anion gap 10 2 - 15 mmol/L BUN 23 6 - 25 mg/dL Creatinine 1.26 0.80 - 1.30 mg/dL Glucose 117 70 - 199 mg/dL Calcium 7.8 (L) 8.5 - 10.3 mg/dL Bilirubin, total 0.5 0.1 - 1.2 mg/dL Protein, pl 6.4 (L) 6.5 - 8.5 g/dL Albumin 3.7 3.5 - 5.0 g/dL Alk phos 65 40 - 130 Units/L ALT See Comment 7 - 55 Units/L AST See Comment 10 - 50 Units/L eGFR Collection Time: 05/01/23 5:50 PM Result Value Ref Range eGFR 79 >=60 mL/min/1.73 m2 POCT glucose Collection Time: 05/01/23 7:27 PM Result Value Ref Range Glucose, POC 125 70 - 199 mg/dL Hepatic function panel Collection Time: 05/01/23 7:28 PM Result Value Ref Range Bilirubin, total 0.4 0.1 - 1.2 mg/dL Bilirubin, direct <0.2 0.1 - 0.3 mg/dL Protein, pl 6.2 (L) 6.5 - 8.5 g/dL Albumin 3.5 3.5 - 5.0 g/dL Alk phos 71 40 - 130 Units/L ALT 17 7 - 55 Units/L AST 19 10 - 50 Units/L Potassium, whole blood Collection Time: 05/01/23 7:28 PM Result Value Ref Range Potassium, bld 4.1 3.3 - 4.9 mmol/L POC Blood Gas and Chemistries, Arterial - Collection Time: 05/01/23 11:03 PM Result Value Ref Range pH, Art POC 7.37 7.35 - 7.45 pCO2, Art POC 39 35 - 45 mmHg pO2, Art POC 102 83 - 108 mmHg Na, POC 139 135 - 145 mmol/L K POC 3.9 3.3 - 4.9 mmol/L Cl, POC 109 97 - 110 mmol/L Ionized Ca, POC 4.51 4.50 - 5.10 mg/dL Glucose, POC 112 70 - 199 mg/dL Lactate, POC 1.0 0.7 - 2.2 mmol/L SO2 (natalia) arterial 99 (H) 90 - 95 % Base excess, POC -2.5 mmol/L HCO3, Art POC 22 20 - 30 mmol/L Hct, POC 35.0 (L) 41.4 - 51.6 % O2 Sat, Art POC (Calc) 98 % Total Hb, POC 11.6 (L) 13.8 - 17.2 g/dL CBC without differential Collection Time: 05/01/23 11:52 PM Result Value Ref Range WBC 15.1 (H) 3.8 - 9.9 K/cumm Hgb 10.9 (L) 13.0 - 17.5 g/dL Hct 31.8 (L) 38.9 - 50.3 % Plt 104 (L) 150 - 400 K/cumm MPV 9.5 9.1 - 12.3 fL RBC 3.55 (L) 4.30 - 5.80 M/cumm MCV 89.6 81.3 - 96.4 fL MCH 30.7 27.1 - 33.3 pg MCHC 34.3 32.3 - 35.7 g/dL RDW CV 12.5 11.1 - 14.9 % RDW SD 41.4 35.7 - 48.1 fL NRBC abs 0.00 0.00 - 0.01 K/cumm Lactate Collection Time: 05/01/23 11:52 PM Result Value Ref Range Lactate 0.9 0.7 - 2.0 mmol/L Comprehensive metabolic panel Collection Time: 05/01/23 11:52 PM Result Value Ref Range Sodium 139 135 - 145 mmol/L Potassium, pl 4.0 3.3 - 4.9 mmol/L Chloride 108 97 - 110 mmol/L CO2 24 22 - 32 mmol/L Anion gap 7 2 - 15 mmol/L BUN 22 6 - 25 mg/dL Creatinine 1.25 0.80 - 1.30 mg/dL Glucose 108 70 - 199 mg/dL Calcium 7.7 (L) 8.5 - 10.3 mg/dL Bilirubin, total 0.4 0.1 - 1.2 mg/dL Protein, pl 5.8 (L) 6.5 - 8.5 g/dL Albumin 3.7 3.5 - 5.0 g/dL Alk phos 69 40 - 130 Units/L ALT 18 7 - 55 Units/L AST 21 10 - 50 Units/L eGFR Collection Time: 05/01/23 11:52 PM Result Value Ref Range eGFR 79 >=60 mL/min/1.73 m2 CBC without differential Collection Time: 05/02/23 4:10 AM Result Value Ref Range WBC 16.1 (H) 3.8 - 9.9 K/cumm Hgb 11.1 (L) 13.0 - 17.5 g/dL Hct 32.6 (L) 38.9 - 50.3 % Plt 108 (L) 150 - 400 K/cumm MPV 9.4 9.1 - 12.3 fL RBC 3.58 (L) 4.30 - 5.80 M/cumm MCV 91.1 81.3 - 96.4 fL MCH 31.0 27.1 - 33.3 pg MCHC 34.0 32.3 - 35.7 g/dL RDW CV 12.5 11.1 - 14.9 % RDW SD 41.5 35.7 - 48.1 fL NRBC abs 0.00 0.00 - 0.01 K/cumm Lactate Collection Time: 05/02/23 4:10 AM Result Value Ref Range Lactate 0.9 0.7 - 2.0 mmol/L Calcium, ionized Collection Time: 05/02/23 4:10 AM Result Value Ref Range Calcium, Ionized 4.45 (L) 4.50 - 5.10 mg/dL Protime-INR Collection Time: 05/02/23 4:10 AM Result Value Ref Range PT 14.9 (H) 10.3 - 13.7 sec INR 1.31 (H) 0.90 - 1.20 Comprehensive metabolic panel Collection Time: 05/02/23 4:10 AM Result Value Ref Range Sodium 138 135 - 145 mmol/L Potassium, pl See Comment 3.3 - 4.9 mmol/L Chloride 107 97 - 110 mmol/L CO2 23 22 - 32 mmol/L Anion gap 8 2 - 15 mmol/L BUN 20 6 - 25 mg/dL Creatinine 1.21 0.80 - 1.30 mg/dL Glucose 122 70 - 199 mg/dL Calcium 7.8 (L) 8.5 - 10.3 mg/dL Bilirubin, total 0.4 0.1 - 1.2 mg/dL Protein, pl 6.2 (L) 6.5 - 8.5 g/dL Albumin 3.5 3.5 - 5.0 g/dL Alk phos 65 40 - 130 Units/L ALT See Comment 7 - 55 Units/L AST See Comment 10 - 50 Units/L eGFR Collection Time: 05/02/23 4:10 AM Result Value Ref Range eGFR 83 >=60 mL/min/1.73 m2 POCT glucose Collection Time: 05/02/23 4:16 AM Result Value Ref Range Glucose, POC 117 70 - 199 mg/dL CBC without differential Collection Time: 05/02/23 10:12 AM Result Value Ref Range WBC 14.9 (H) 3.8 - 9.9 K/cumm Hgb 10.9 (L) 13.0 - 17.5 g/dL Hct 31.0 (L) 38.9 - 50.3 % Plt 108 (L) 150 - 400 K/cumm MPV 10.2 9.1 - 12.3 fL RBC 3.47 (L) 4.30 - 5.80 M/cumm MCV 89.3 81.3 - 96.4 fL MCH 31.4 27.1 - 33.3 pg MCHC 35.2 32.3 - 35.7 g/dL RDW CV 12.6 11.1 - 14.9 % RDW SD 41.1 35.7 - 48.1 fL NRBC abs 0.02 (H) 0.00 - 0.01 K/cumm Lactate Collection Time: 05/02/23 10:12 AM Result Value Ref Range Lactate 0.9 0.7 - 2.0 mmol/L Comprehensive metabolic panel Collection Time: 05/02/23 10:12 AM Result Value Ref Range Sodium 134 (L) 135 - 145 mmol/L Potassium, pl See Comment 3.3 - 4.9 mmol/L Chloride 104 97 - 110 mmol/L CO2 21 (L) 22 - 32 mmol/L Anion gap 9 2 - 15 mmol/L BUN 18 6 - 25 mg/dL Creatinine 1.19 0.80 - 1.30 mg/dL Glucose 104 70 - 199 mg/dL Calcium 7.9 (L) 8.5 - 10.3 mg/dL Bilirubin, total 0.4 0.1 - 1.2 mg/dL Protein, pl 5.9 (L) 6.5 - 8.5 g/dL Albumin 3.3 (L) 3.5 - 5.0 g/dL Alk phos 63 40 - 130 Units/L ALT See Comment 7 - 55 Units/L AST See Comment 10 - 50 Units/L eGFR Collection Time: 05/02/23 10:12 AM Result Value Ref Range eGFR 84 >=60 mL/min/1.73 m2 Prepare RBC: 4 Units Collection Time: 05/02/23 10:33 AM Result Value Ref Range Product code T2715X20 Unit Number [id number] Product Blood Type APOS Dispense Status CROSSMATCHED Product code [id number] Unit Number [id number] Product Blood Type APOS Dispense Status CROSSMATCHED Product code [id number] Unit Number [id number] Product Blood Type APOS Dispense Status CROSSMATCHED Product code [id number] Unit Number [id number] Product Blood Type APOS Dispense Status CROSSMATCHED Transthoracic Echo (TTE) Complete W Doppler/CF Collection Time: 05/02/23 12:40 PM Result Value Ref Range LV EF 41 % , Chemistry CMP: Lab Results Component Value Date ALBUMIN 3.3 (L) 05/02/2023 BUNSER 18 05/02/2023 CALCIUM 7.9 (L) 05/02/2023 CO2 21 (L) 05/02/2023 CHLORIDE 104 05/02/2023 CREATININE 1.19 05/02/2023 GLUCOSE 104 05/02/2023 GLUCOSE 117 05/02/2023 GLUCOSE 112 05/01/2023 POTASSIUM See Comment 05/02/2023 SODIUM 134 (L) 05/02/2023 BILITOT 0.4 05/02/2023 PROT 5.9 (L) 05/02/2023 ALT See Comment 05/02/2023 AST See Comment 05/02/2023 ALKPHOS 63 05/02/2023 , CBC: Lab Results Component Value Date WBC 14.9 (H) 05/02/2023 RBC 3.47 (L) 05/02/2023 HGB 10.9 (L) 05/02/2023 HGB 11.6 (L) 05/01/2023 HCT 31.0 (L) 05/02/2023 MCV 89.3 05/02/2023 MCH 31.4 05/02/2023 MCHC 35.2 05/02/2023 RDWCV 12.6 05/02/2023 RDWSD 41.1 05/02/2023 MPV 10.2 05/02/2023 NRBCABS 0.02 (H) 05/02/2023 , Coags: Lab Results Component Value Date PT 14.9 (H) 05/02/2023 APTT 34 05/01/2023 INR 1.31 (H) 05/02/2023 , Lipids: No results found for: CHOL , CHLPL , HDL , LDLCALC , TRIG , CHOLHDL , Cardiac Enzymes: No results found for: CKTOTAL , CKMB , CKMBINDEX , TROPONINT and POC Glucose: Lab Results Component Value Date GLUCOSE 104 05/02/2023 GLUCOSE 117 05/02/2023 GLUCOSE 112 05/01/2023 CTA Chest Abdominal Aorta and Bilateral Iliofemoral Narrative: EXAMINATION: CT ANGIOGRAPHY OF CHEST, ABDOMEN, PELVIS, AND LOWER EXTREMITIES WITH CONTRAST HISTORY: Aortic dissection, follow-up TECHNIQUE: CT angiography of the chest, abdomen, pelvis, and lower extremities was performed following the uneventful intravenous administration of 120 ml [id number]. Vascular 3D images were generated on a dedicated workstation and also reviewed. COMPARISON: 05/01/2023 FINDINGS: VASCULAR FINDINGS: Thoracic aorta: Redemonstrated thoracic aortic dissection with interval increased size of the false lumen, now extending cranially to the level of zone 3 and caudally to the level of the left common iliac artery, although assessment of the proximal margin of the dissection is limited by motion. Contrast is present within the false lumen, likely originating from a fenestration along the posterior medial margin of the dissection flap at the level of approximately T4. No significant change in size of the thoracic aortic caliber which measures approximately 3.3 cm (was 3.3 cm). The true lumen at that level measures approximately 1.2 cm (was 1.2 cm). Increased fat stranding is noted about the aortic arch and the proximal great vessels without intraluminal extension of the dissection. There is partial thrombosis of the false lumen within the distal thoracic aorta. 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 The superior mesenteric artery, right renal artery, left renal artery, and inferior mesenteric artery arise from the true lumen. Opacification of the false lumen within the infrarenal abdominal aorta with limited to retrograde reflux of contrast through the distal margin of the dissection flap. The distal vasculature is patent without evidence of significant atherosclerotic disease or additional dissection. There is 3 vessel runoff on the right. The left anterior tibial artery is congenitally diminutive with collateral flow from the left peroneal artery which is patent without stenosis. NON-VASCULAR FINDINGS: Mild thoracic lymphadenopathy, likely reactive. The heart is normal in size without pericardial effusion. Bibasilar atelectasis present without consolidation, effusion, or pneumothorax. Hepatic hemangioma without suspicious liver lesion. No biliary dilatation. The main portal vein is patent. The spleen, pancreas, gallbladder, and adrenal glands are normal. Multiple renal cysts without hydronephrosis. The urinary bladder is unremarkable and decompressed with Hutton catheter. No evidence of mesenteric ischemia. No bowel obstruction. No suspicious abdominal or pelvic lymphadenopathy. No intra-abdominal free fluid or gas. No acute fracture or osseous lesion. Impression: 1. Interval cranial propagation of a type B thoracic aortic dissection which now extends from approximately zone 3 to the left common iliac artery. No change in aortic caliber. This dissection may originate in the mid thoracic aorta, where a fenestration is present at the level of T4 2. Increasing fat stranding about the aortic arch and great vessels, likely reactive in the setting of dissection propagation. No extraluminal contrast present to suggest aortic rupture. 3. 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 The Critical results were discussed with MD Luiza by Dr. Emmanuel Browning MD on 05/02/2023 at 10:23 AM Dictated by: Emmanuel Browning MD XR Chest 1 View (Portable) Narrative: EXAMINATION: 1 view chest radiograph Impression: Comparison is made to chest radiograph 05/01/23 4:42 AM. The patient is slightly rotated. The mediastinum is acutely widened from the prior exam, concerning for rupture of known dissection. No pleural effusion. No focal consolidation. No pneumothorax. The cardiac silhouette is enlarged, unchanged from prior exam. The Critical results were discussed with Dr. Osorio by Dr. Childers on 05/02/23 at 9:25 AM Dictated by: Shady Childers MD The radiology attending physician has personally reviewed this study, and had reviewed and/or edited this written report and agrees with it. Electronically signed by: Otoniel Avalos M.D. ECHO: \SUMMARY: Dilated LV with LVH. Mild-moderate globally reduced LV systolic function (calculated LVEF 41%). No GLS data reported due to limited imaging resolution and deformation tracking. Indeterminate diastolic function. Normal RV size and systolic function. No hemodynamically significant valvular heart disease. Unable to calculate PASP due to faint TR jet signal. Dilated atria. No interatrial shunt detected on color-flow Doppler imaging. Dilated IVC size with reduced inspiratory collapse. Normal aortic root size. No intracardiac masses, vegetations, or thrombi detected. No pericardial effusion. ASSESSMENT/PLAN * Dissection of aorta, unspecified portion of aorta (HCC) Assessment & Plan 32y/o male with uncontrolled HTN who presented to an OSH ER with acute onset shortness of breath, chest pain and back pain. 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 He was transferred to [facility] for further evaluation and treatment. Here, he was seen by vascular surgery and admitted to the CTICU for impulse control. He had recurrent worsening pain and a repeat CTA this morning. This showed ???interval cranial propagation of a type B thoracic aortic dissection which now extends from approximately zone 3 to theleft common iliac artery; no change in aortic caliber; this dissection may originate in the midthoracic aorta, or fenestration is present at the level of T4; increasing fat stranding about the aorticarch and great vessels, likely reactive in the setting of dissection propagation, no extraluminal contrast present to suggest aortic rupture?? , for which CTS was consulted. CTA reviewed with Daniel Balderas, and Mesha. All feel these findings not to be telephone service representative of a type a dissection, therefore no urgent cardiac surgery is recommended. However, he is continuing to have significant pain despite BP control and pain medications, in addition to the propagationof the dissection. Recommend reaching back out to vascular surgery to consider a vascular intervention. I have called the on-call vascular fellow and left a voicemail. Echo ordered stat. This showed LVEF of 41%, dilated atria, dilated IVC, normal aortic root size, nopericardial effusion. As above, recommend following up with vascular surgery. Please get stat chest abdomen pelvis CTA if any clinical or neurological changes. Continue impulse control. Consider cardiology consult in the setting of difficult to control, longstanding hypertension and findings of HFrEF with LVEF of 41%. Principal Problem: Dissection of aorta, unspecified portion of aorta (HCC) Patient discussed with Dr. Sanchez, who will determine the final recommendations. 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 HPI: Eriberto Chau is a 32 y.o. male with PMH uncontrolled HTN (non-adherence) p/w acute CP, abd pain, and SOB x 6 hours. Woke up around 1AM with symptoms and presented to [facility]. 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 On arrival, endorses n/v and persistent CP/abdominal pain. On nicardipine/esmolol gtt, SBP 150-160s. Past Medical: No past medical history on file. Surgical History: No past surgical history on file. Home Medications: HOME MEDICATIONS : Not on File Current Medications: Current Facility-Administered Medications Medication Dose Route Frequency Provider Last Rate Last Admin acetaminophen (TYLENOL) tablet 1,000 mg 1,000 mg oral Q6H [facility] Manuel Jarrett MD 1,000 mg at 05/01/23 1133 Carrier Fluids for Secondary Infusion - 0.9% Sodium Chloride 30 mL intravenous PRN Manuel Jarrett MD carvediloL (COREG) tablet 6.25 mg 6.25 mg oral BID with meals (bkfst, dinner) Aroldo Kaplan MD 6.25 mg at 05/01/23 1226 clevidipine (CLEVIPREX) 50 mg/100 mL (0.5 mg/mL) (premix) 0-32 mg/hr intravenous Titrated Aroldo Kaplan MD 32 mL/hr at 05/01/23 1400 16 mg/hr at 05/01/23 1400 dextrose gel in packet 15 g 15 g oral Q15 Min PRN Manuel Jarrett MD Or dextrose (D10W) 10% bolus 250 mL 250 mL intravenous Q15 Min PRN Manuel Jarrett MD esmolol in 0.9% sodium chloride (BREVIBLOC) 2,500 mg/250 mL (10 mg/mL) infusion (premix) - ADS Override Pull esmolol in 0.9% sodium chloride (BREVIBLOC) 2,500 mg/250 mL (10 mg/mL) infusion (premix) 0-300 mcg/kg/min intravenous Titrated Faustino Elias MD 187.7 mL/hr at 05/01/23 1400 300 mcg/kg/min at 05/01/23 1400 glucagon injection 1 mg 1 mg intramuscular Q30 Min PRN Manuel Jarrett MD HYDROmorphone (DILAUDID) injection 0.5 mg 0.5 mg intravenous Q2H PRN Manuel Jarrett MD insulin lispro (HumaLOG, ADMELOG) 100 unit/mL injection 1-3 Units 1-3 Units subcutaneous Q4H Manuel Martel MD ondansetron (ZOFRAN) injection 4 mg 4 mg intravenous Q6H PRN Manuel Jarrett MD oxyCODONE (ROXICODONE) tablet 5 mg 5 mg oral Q4H PRN Manuel Jarrett MD 5 mg at 05/01/23 1132 senna (SENOKOT) tablet 1 tablet 1 tablet oral BID Manuel Jarrett MD 1 tablet at 05/01/23 1133 Or senna 1.76 mg/mL syrup 8.8 mg 8.8 mg feeding tube BID Manuel Jarrett MD sodium chloride 0.9% flush 0.5-20 mL 0.5-20 mL intra-catheter Q8H [facility] Manuel Jarrett MD 10mL at 05/01/23 1358 sodium chloride 0.9% flush 0.5-20 mL 0.5-20 mL intra-catheter PRN Manuel Jarrett MD sodium chloride 0.9% solution 3-12 mL/hr intra-catheter Continuous Manuel Jarrett MD 3 mL/hr at 05/01/23 1400 3 mL/hr at 05/01/23 1400 Allergies: Allergies Allergen Reactions Amoxicillin Hives Family History: No family history on file. Social History: reports that he has never smoked. He has never used smokeless tobacco. No alcohol history on file. Review of Systems: Constitutional: Negative for fatigue, weight loss, fevers, chills, anorexia. Eyes: Negative for changes in vision or ocular discharge Ears, nose, mouth, and throat: Negative for ear pain, nasal drainage, sore throat Respiratory: as per HPI Cardiovascular: as per HPI Gastrointestinal: as pr HPI Genitourinary: Negative for dysuria, hematuria Skin: Negative for rash Hematologic/lymphatic: Negative for easy bruising Musculoskeletal:Negative for joint pain, muscle pain Neurological: Negative for headaches, seizures Vitals: Arrival Vitals Temp 05/01/23 0759 36.6 ??C (97.9 ??F) Pulse 05/01/23 0500 70 Resp 05/01/23 0500 12 BP 05/01/23 0500 (!) 187/118 SpO2 05/01/23 0500 98 % Temp src 05/01/23 0759 Axillary Heart Rate Source 05/01/23 1029 Monitor Patient Position 05/01/23 1224 Lying BP Location 05/01/23 1224 Left arm FiO2 (%) -- Most Recent : Vitals: 05/01/23 1400 BP: Pulse: 74 Resp: 18 Temp: SpO2: 97% Objective Physical exam: GENERAL: In discomfort due to abd pain and vomiting NEURO: Alert and oriented x3, mood and affect appropriate. HEENT: Pupils equal. EOMs grossly normal. NECK: Supple. Trachea midline. PULMONARY: Breathing comfortably on room air. No audible wheezes. CARDIOVASCULAR: Regular rate and rhythm. ABDOMEN: Soft, non-tender, non-distended MUSCULOSKELETAL: Grossly normal range of motion. Motor 5/5, sensation intact PULSES: Multiphasic fem/DP/PT bilaterally Lab/Radiology/Diagnostic Review: Lab results in the last 24 hours: Recent Results (from the past 24 hour(s)) CBC with auto differential Collection Time: 05/01/23 5:19 AM Result Value Ref Range WBC 20.6 (H) 3.8 - 9.9 K/cumm Hgb 13.6 13.0 - 17.5 g/dL Hct 39.4 38.9 - 50.3 % Plt 165 150 - 400 K/cumm MPV 8.8 (L) 9.1 - 12.3 fL RBC 4.45 4.30 - 5.80 M/cumm MCV 88.5 81.3 - 96.4 fL MCH 30.6 27.1 - 33.3 pg MCHC 34.5 32.3 - 35.7 g/dL RDW CV 12.4 11.1 - 14.9 % RDW SD 40.4 35.7 - 48.1 fL NRBC abs 0.00 0.00 - 0.01 K/cumm Comprehensive metabolic panel Collection Time: 05/01/23 5:19 AM Result Value Ref Range Sodium 140 135 - 145 mmol/L Potassium, pl 4.1 3.3 - 4.9 mmol/L Chloride 103 97 - 110 mmol/L CO2 26 22 - 32 mmol/L Anion gap 11 2 - 15 mmol/L BUN 20 6 - 25 mg/dL Creatinine 1.46 (H) 0.80 - 1.30 mg/dL Glucose 137 70 - 199 mg/dL Calcium 9.0 8.5 - 10.3 mg/dL Bilirubin, total 0.8 0.1 - 1.2 mg/dL Protein, pl 7.4 6.5 - 8.5 g/dL Albumin 4.6 3.5 - 5.0 g/dL Alk phos 90 40 - 130 Units/L ALT 20 7 - 55 Units/L AST 21 10 - 50 Units/L Protime-INR Collection Time: 05/01/23 5:19 AM Result Value Ref Range PT 13.7 10.3 - 13.7 sec INR 1.20 0.90 - 1.20 aPTT Collection Time: 05/01/23 5:19 AM Result Value Ref Range aPTT 34 28 - 38 sec Urinalysis reflex to microscopic and culture Urine Collection Time: 05/01/23 5:19 AM Specimen: Urine Result Value Ref Range Color, ur Straw Yellow Clarity, ur Clear Clear Specific gravity, ur >1.042 (H) 1.003 - 1.030 pH, urine 6.5 Protein, ur ql 1+ (A) Negative Glucose, ur ql Trace (A) Negative Ketones, ur Negative Negative Bilirubin, ur Negative Negative Blood, ur 1+ (A) Negative Urobilinogen, ur <2.0 <2.0 mg/dL Nitrite, ur Negative Negative Leukocyte esterase, ur Negative Negative UA reflex comment Reflex to microscopic UA will be performed. Drugs of Abuse Screen, Urine with Reflex Confirmation Collection Time: 05/01/23 5:19 AM Result Value Ref Range Amphetamine, ur Not Detected CutOff 500ng/mL Barbiturates, ur Not Detected CutOff 200ng/mL Benzodiazepines, ur Not Detected CutOff 100ng/mL Cannabinoids, ur Screen Positive, presumptive (A) CutOff 50 ng/mL Cocaine, ur Not Detected CutOff 150ng/mL Fentanyl, Ur Screen Positive, presumptive (A) Cutoff 1 ng/mL Methadone, ur Not Detected CutOff 300ng/mL Opiates, ur Not Detected CutOff 300ng/mL Oxycodone, ur Not Detected CutOff 100ng/mL Phencyclidine, ur Not Detected CutOff 25 ng/mL Urine Creatinine 88 mg/dL Differential, auto Collection Time: 05/01/23 5:19 AM Result Value Ref Range Neutrophil abs 17.9 (H) 1.7 - 6.5 K/cumm Imm gran abs 0.3 (H) 0.0 - 0.1 K/cumm Lymphocyte abs 1.0 0.8 - 3.3 K/cumm Monocyte abs 1.4 (H) 0.2 - 0.8 K/cumm Eosinophil abs 0.0 0.0 - 0.5 K/cumm Basophil abs 0.1 0.0 - 0.1 K/cumm Neutrophil pct 86.9 % Imm gran pct 1.4 % Lymphocyte pct 4.7 % Monocyte pct 6.7 % Eosinophil pct 0.0 % Basophil pct 0.3 % Urinalysis, microscopic only Collection Time: 05/01/23 5:19 AM Result Value Ref Range WBC, ur 0-5 0 - 5 /HPF RBC, ur 21-50 (A) 0 - 2 /HPF Epithelial cells, squamous, ur 1-5 0 - 5 /HPF Bacteria, ur Trace (A) Culture Reflex Comment Reflex conditions for urine culture (WBC >10) not met. eGFR Collection Time: 05/01/23 5:19 AM Result Value Ref Range eGFR 66 >=60 mL/min/1.73 m2 Type and screen Collection Time: 05/01/23 7:52 AM Result Value Ref Range Ellen, indirect Negative ABO Rh A Positive Check Sample Collection Time: 05/01/23 8:13 AM Result Value Ref Range ABO Rh A Positive Sepsis Lactate w/ Reflex Collection Time: 05/01/23 8:13 AM Result Value Ref Range Sepsis Lactate 2.1 (H) 0.7 - 2.0 mmol/L Sepsis Lactate w/ Reflex Collection Time: 05/01/23 10:15 AM Result Value Ref Range Sepsis Lactate 2.7 (H) 0.7 - 2.0 mmol/L CBC without differential Collection Time: 05/01/23 10:15 AM Result Value Ref Range WBC 16.7 (H) 3.8 - 9.9 K/cumm Hgb 12.5 (L) 13.0 - 17.5 g/dL Hct 37.2 (L) 38.9 - 50.3 % Plt 109 (L) 150 - 400 K/cumm MPV 8.8 (L) 9.1 - 12.3 fL RBC 4.14 (L) 4.30 - 5.80 M/cumm MCV 89.9 81.3 - 96.4 fL MCH 30.2 27.1 - 33.3 pg MCHC 33.6 32.3 - 35.7 g/dL RDW CV 12.5 11.1 - 14.9 % RDW SD 41.0 35.7 - 48.1 fL NRBC abs 0.00 0.00 - 0.01 K/cumm Comprehensive metabolic panel Collection Time: 05/01/23 10:15 AM Result Value Ref Range Sodium 141 135 - 145 mmol/L Potassium, pl 4.1 3.3 - 4.9 mmol/L Chloride 105 97 - 110 mmol/L CO2 25 22 - 32 mmol/L Anion gap 11 2 - 15 mmol/L BUN 21 6 - 25 mg/dL Creatinine 1.57 (H) 0.80 - 1.30 mg/dL Glucose 134 70 - 199 mg/dL Calcium 8.5 8.5 - 10.3 mg/dL Bilirubin, total 1.1 0.1 - 1.2 mg/dL Protein, pl 6.9 6.5 - 8.5 g/dL Albumin 4.1 3.5 - 5.0 g/dL Alk phos 80 40 - 130 Units/L ALT 21 7 - 55 Units/L AST 21 10 - 50 Units/L Lactate Collection Time: 05/01/23 10:15 AM Result Value Ref Range Lactate 2.7 (H) 0.7 - 2.0 mmol/L eGFR Collection Time: 05/01/23 10:15 AM Result Value Ref Range eGFR 60 >=60 mL/min/1.73 m2 Creatine kinase (CK), total Collection Time: 05/01/23 11:40 AM Result Value Ref Range CK 197 40 - 300 Units/L Blood gas, arterial Collection Time: 05/01/23 11:40 AM Result Value Ref Range pH, Art 7.31 (L) 7.35 - 7.45 PCO2, Arterial 46 (H) 35 - 45 mmHg PO2, Arterial 134 (H) 83 - 108 mmHg HCO3 Art (Calculated) 24 20 - 30 mmol/L BE, art -3 mmol/L O2 Sat Art (Measured) 99 (H) 90 - 95 % Troponin I high-sensitivity Collection Time: 05/01/23 11:40 AM Result Value Ref Range Trop I hs 15 <=35 ng/L POCT glucose Collection Time: 05/01/23 11:40 AM Result Value Ref Range Glucose, POC 118 70 - 199 mg/dL Sepsis Lactate w/ Reflex Collection Time: 05/01/23 1:18 PM Result Value Ref Range Sepsis Lactate 1.9 0.7 - 2.0 mmol/L , Chemistry CMP: Lab Results Component Value Date ALBUMIN 4.1 05/01/2023 BUNSER 21 05/01/2023 CALCIUM 8.5 05/01/2023 CO2 25 05/01/2023 CHLORIDE 105 05/01/2023 CREATININE 1.57 (H) 05/01/2023 GLUCOSE 118 05/01/2023 GLUCOSE 134 05/01/2023 POTASSIUM 4.1 05/01/2023 SODIUM 141 05/01/2023 BILITOT 1.1 05/01/2023 PROT 6.9 05/01/2023 ALT 21 05/01/2023 AST 21 05/01/2023 ALKPHOS 80 05/01/2023 , CBC: Lab Results Component Value Date WBC 16.7 (H) 05/01/2023 RBC 4.14 (L) 05/01/2023 HGB 12.5 (L) 05/01/2023 HCT 37.2 (L) 05/01/2023 MCV 89.9 05/01/2023 MCH 30.2 05/01/2023 MCHC 33.6 05/01/2023 RDWCV 12.5 05/01/2023 RDWSD 41.0 05/01/2023 MPV 8.8 (L) 05/01/2023 NRBCABS 0.00 05/01/2023 , Coags: Lab Results Component Value Date PT 13.7 05/01/2023 APTT 34 05/01/2023 INR 1.20 05/01/2023 , Lipids: No results found for: CHOL , CHLPL , HDL , LDLCALC , TRIG , CHOLHDL , Cardiac Enzymes: No results found for: CKTOTAL , CKMB , CKMBINDEX , TROPONINT and POC Glucose: Lab Results Component Value Date GLUCOSE 118 05/01/2023 GLUCOSE 134 05/01/2023 CT Body Outside Consult Narrative: EXAMINATION: RADIOLOGY CONSULTATION ON OUTSIDE IMAGING STUDY STUDY INITIALLY PERFORMED: 05/01/2023 at [facility]. TYPE OF STUDY: Multiple CT images of the abdomen pelvis with contrast are provided at the time of this interpretation. CONTRAST ROUTE: Contrast was administered via the intravenous route. The protocol was adequate to address the clinical question. The outside final report was not available at the time of this second opinion interpretation. TYPE OF CONSULTATION: Consult on outside imaging study with images submitted through Outside Image Sharing Service DATE OF CONSULTATION: 05/01/2023 6:19 AM HISTORY: Thoracic aortic dissection COMPARISON: Outside CT of the chest. FINDINGS: Normal heart size. No pericardial effusion. Lung bases are clear. Normal appearance of the spleen, pancreas, gallbladder, adrenal glands. Hemangioma noted in the liver. Numerous hypoattenuating renal lesions are favored to represent cysts but are too small to definitively characterize. Multiple punctate nonobstructing renal calculi are seen in both collecting systems. No abdominal or pelvic lymphadenopathy. The urinary bladder is nondistended. The prostate is normal. The colon is nondistended. The appendix is normal. Mottled material in the distal terminal ileum may represent a component of enteric dysmotility. No evidence of obstruction. A partially imaged thoracic aortic dissection terminates above the bifurcation, with the celiac artery, and left renal artery arising off the false lumen. Intraluminal evaluation limited by phase of contrast. There is no infrarenal abdominal aortic aneurysm. The entry tear may be just proximal to the diaphragmatic hiatus. No suspicious osseous lesion. Impression: 1. Extension of the type B thoracic aortic aneurysm, terminates just above the bifurcation, with origins the left renal artery and celiac artery arising off the false lumen. No evidence of vascular compromise. The entry tear is not definitely visualized, it may be just proximal to the diaphragmatic hiatus as this is where contrast within the false lumen is most dense. 2. Pseudofeces in the small bowel, without evidence of obstruction. This is of unknown clinical significance and is of uncertain etiology. Continued attention on follow-up imaging and correlation with symptomatology is recommended. The findings, conclusions and recommendations within this report do not replace the initial findings, conclusions and recommendations made at the facility where the study was performed based upon the imaging and clinical condition at that time. Comparison with the prior report and clinical history is necessary. The provided images may or may not represent the [place] source data set and thus may contain changes that may lower the accuracy of this second-opinion interpretation. Dictated by: Jr Gallagher MD The radiology attending physician has personally reviewed this study, and had reviewed and/or edited this written report and agrees with it. Electronically signed by: Ruthie Malone M.D. CT Body Outside Consult Narrative: EXAMINATION: RADIOLOGY CONSULTATION ON OUTSIDE IMAGING STUDY STUDY INITIALLY PERFORMED: 05/01/2023 at [facility]. TYPE OF STUDY: Multiple CT images of the chest with contrast are provided at the time of this interpretation. CONTRAST ROUTE: Contrast was administered via the intravenous route. The protocol was adequate to address the clinical question. The outside final report was not available at the time of this second opinion interpretation. TYPE OF CONSULTATION: Consult on outside imaging study with images submitted through Outside Image Sharing Service DATE OF CONSULTATION: 05/01/2023 6:10 AM HISTORY: Concern for aortic aneurysm/dissection. COMPARISON: None available. FINDINGS: Normal appearance of the imaged thyroid. No axillary, supra clavicular mediastinal lymphadenopathy. Heart size normal. No pericardial effusion. There appears to be a tricuspid aortic valve. There is no ascending tubular aortic aneurysm. Mediastinal lymph nodes that are calcified are likely sequela level granulomatous disease. No pleural effusion. No pneumothorax. There is mild dependent atelectasis. Limited evaluation of the upper abdomen reveals no acute findings in the visceral organs. No suspicious osseous lesion. There is a type B aortic dissection, without clear fenestration in the proximal/descending thoracic aorta, with contrast opacification/mixing occurring from likely fenestration below the [id number]. The nonopacification of the false lumen may represent a component of thrombosis however this cannot be fully evaluated on this single phase study. The descending thoracic aorta measures 3.2 x 3.2 cm in double oblique dimensions, with true lumen measuring 1.3 x 1.3 cm. The celiac artery arises off the false lumen. Appear mesenteric artery and right renal artery arise off the true lumen. The origin of the left renal artery is not known. Impression: Incompletely imaged Type B aortic dissection, which does not extend beyond the origin of the left subclavian artery. The findings, conclusions and recommendations within this report do not replace the initial findings, conclusions and recommendations made at the facility where the study was performed based upon the imaging and clinical condition at that time. Comparison with the prior report and clinical history is necessary. The provided images may or may not represent the [place] source data set and thus may contain changes that may lower the accuracy of this second-opinion interpretation. Dictated by: Jr Gallagher MD The radiology attending physician has personally reviewed this study, and had reviewed and/or edited this written report and agrees with it. Electronically signed by: Ruthie Malone M.D. XR Chest 1 View Narrative: EXAMINATION: 1 view chest radiograph Impression: No prior imaging available for comparison. Single view chest: Cardiac contours likely exaggerated by imaging technique. No pleural effusion. No pneumothorax. Mild bibasilar atelectasis. Dictated by: Jr Gallagher MD The radiology attending physician has personally reviewed this study, and had reviewed and/or edited this written report and agrees with it. Electronically signed by: Ruthie Malone M.D. XR Outside Reference Narrative: EXAMINATION: Images For Reference Purposes Only Impression: These images are for Reference purposes only and have not been reviewed by [facility] Radiology. There will be no report generated by a [facility] Radiologist. ECG 12 lead Meron Monterroso MD 05/01/2023 5:16 AM ECG 12 lead Date/Time: 05/01/2023 5:15 AM Performed by: Meron Monterroso MD Authorized by: Meron Monterroso MD Rate: ECG rate: 80 ECG rate assessment: normal Rhythm: Rhythm: sinus rhythm Ectopy: Ectopy: none QRS: QRS axis: Normal Conduction: Conduction: normal ST segments: ST segments: Abnormal Elevation: V1 and V2 T waves: T waves: inverted Inverted: V3, V4, V5 and V6 Other findings: Other findings: LVH Previous ECG: Previous ECG: Unavailable Interpretation: Interpretation: abnormal Recommended Follow-up: Recommended follow up: cardiac workup Principal Problem: Dissection of aorta, unspecified portion of aorta (HCC) Assessment and Plan: Patient Active Problem List Diagnosis Dissection of aorta, unspecified portion of aorta (HCC) Eriberto Chau is a 32M PMH uncontrolled HTN (non-adherence) p/w symptomatic acute TBAD. 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entry tear in zone 5 (level of diaphragm), false lumen extending from Z2-10, celiac/L renal are patent and arising from false lumen, SMA/R renal patent arising from true lumen. On nicardipine/esmololgtt. Plan: -Admit to CTICU for impulse control -SBP goal <100, HR goal <60 -Trend CMP/CBC/lactate q6hr -Continue to monitor chest/abdominal pain -q1NV check -Keep NPO The care plan above has been or will be discussed with attending physician. Any changes will be communicated to the primary team. Please contact the Vascular Surgery Consult Service at the number listed below with any questions or concerns regarding the surgical management of this patient. Josseline Walker MD Resident Physician Vascular Surgery Vascular Consult Cosigned by Alonzo Duncan MD at 05/01/2023 3:25 PM ELECTRO OPTICS ENGINEER TRO OPTICS ENGINEER TRO OPTICS ENGINEER documented in this encounter Nursing Notes * Nataliya English RN - 05/16/2023 4:40 PM CST DC education complete. Meds delivered from [facility]. Pt has ride here. TRO OPTICS ENGINEER documented in this encounter ED Notes * Meron Monterroso MD - 05/01/2023 5:07 AM CST HPI Chief Complaint Patient presents with ??? Chest Pain HPI Patient is a 32-year-old male with past medical history of obesity and hypertension presenting for evaluation of a type B dissection per outside hospital imaging. Patient was accepted by Dr. Granados, cardiothoracic surgery. Patient arrived with nitro drip and labetalol drip, and imaging from OSH, but no formal reads. Patient complaining of midsternal chest pain and cough, accompanied by mother. Patient History: There are no problems to display for this patient. No past medical history on file. No past surgical history on file. No family history on file. Social History Tobacco Use ??? Smoking status: Not on file ??? Smokeless tobacco: Not on file Substance and Sexual Activity ??? Alcohol use: Not on file ??? Drug use: Not on file ??? Sexual activity: Not on file Social History Social History Narrative ??? Not on file Review of Systems Review of Systems Constitutional: Negative for chills and fever. HENT: Negative for ear pain and sore throat. Eyes: Negative for pain and visual disturbance. Respiratory: Positive for cough. Negative for shortness of breath. Cardiovascular: Positive for chest pain. Negative for palpitations. Gastrointestinal: Negative for abdominal pain and vomiting. Genitourinary: Negative for dysuria and hematuria. Musculoskeletal: Negative for arthralgias and back pain. Skin: Negative for color change and rash. Neurological: Negative for seizures and syncope. All other systems reviewed and are negative. Physical Exam ED Triage Vitals [05/01/23 0501] Temp Pulse Resp BP SpO2 -- 77 18 (!) 187/118 98 % Temp src Heart Rate Source Patient Position BP Location FiO2 (%) -- -- -- -- -- Height Height Method Weight Weight Method 1.753 m (5' 9 ) -- 104.3 kg (230 lb) -- Physical Exam Vitals and nursing note reviewed. Constitutional: General: He is not in acute distress. Appearance: He is well-developed. He is obese. He is ill-appearing. HENT: Head: Normocephalic and atraumatic. Eyes: Extraocular Movements: Extraocular movements intact. Conjunctiva/sclera: Conjunctivae normal. Pupils: Pupils are equal, round, and reactive to light. Cardiovascular: Rate and Rhythm: Normal rate and regular rhythm. Heart sounds: Normal heart sounds. Heart sounds not distant. No murmur heard. Pulmonary: Effort: Pulmonary effort is normal. No respiratory distress. Breath sounds: Normal breath sounds. No stridor. No decreased breath sounds or wheezing. Chest: Chest wall: No deformity. Abdominal: Palpations: Abdomen is soft. There is no splenomegaly. Tenderness: There is no abdominal tenderness. Musculoskeletal: General: No swelling. Cervical back: Normal range of motion and neck supple. Right lower leg: No edema. Left lower leg: No edema. Skin: General: Skin is warm and dry. Capillary Refill: Capillary refill takes less than 2 seconds. Coloration: Skin is pale. Neurological: General: No focal deficit present. Mental Status: He is alert and oriented to person, place, and time. Psychiatric: Mood and Affect: Mood normal. [facility] Medical Decision Making Pt is a 32M with PMH of HTN and obesity, here for chest pain with known aortic dissection, questionable if Type B or Type A and B. Will plan to upload outside hospital imaging, consult vascular and cardiothoracic surgery. Pt arrived with BP controlled with nitro gtt and labetolol gtt. Will DC labetolol and start esmolol. Pt will be admitted to ICU. Amount and/or Complexity of Data Reviewed Labs: ordered. Radiology: ordered. ECG/medicine tests: ordered and independent interpretation performed. Risk Prescription drug management. Decision regarding hospitalization. Attending Summary of Care ED Course as of 05/01/23 0939 Time: 05/01 0456 Comment: Per pre-arrival note: Pre-Arrival Note The patient is coming from [facility] accepted by Dr Granados patient has a Type B dissection . The patients report called to Dr Cisse . The patient has had NitroDrip started as well as Labetalol Drip By: Meron Monterroso MD Time: 05/01 0509 Comment: Outside hospital images being uploaded By: Meron Monterroso MD Time: 05/01 510 Comment: Consult placed for cardiothoracic surgery By: Meron Monterroso MD Time: 05/01 556 Comment: A line placed to left wrist. By: Meron Monterroso MD Time: 05/01 628 Comment: Case discussed with radiology as well as vascular services. Likely type b dissection however limited due to single phase study. Vascular will come see the patient. By: Nagi Landa MD Time: 05/01 638 Comment: Teach handoff note: 32-year-old male with past medical history of obesity and hypertension presenting for evaluation ofa type B dissection per outside hospital imaging. Patient was accepted by Dr. Granados, cardiothoracic surgery. Patient currently on an esmolol drip, maxed out, nicardipine (systolic <160 and heart rate as low as he can tolerate, < 100). 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 Consulting services: Vascular surgery (pending their final recs) Pending: CT surgery call them Dispo: ICU By: Lisa Christiansen MD Time: 05/01 700 Comment: Have attempted to contact CTICU by calling directly, via phone consult and via cardiology consult specifying cardiothoracic surgery . Still have not been able to contact that service. By: Meron Monterroso MD Time: 05/01 722 Comment: Patient is nauseous, will try 0.625 of droperidol By: Lisa Christiansen MD Time: 05/01 725 Comment: Vascular saw patient, wanting SBP goal <100, HR 60, type and screen, lactate, and NPO By: Faustino Elias MD Time: 05/01 744 Comment: Spoke with nurse regarding blood pressure goals of systolics between 100 and 110 with heart rate goal of 60 or between 60 and 70 beats per minute By: Lisa Christiansen MD Time: 05/01 923 Comment: Will consult eICU to help with ICU placement By: Lisa Christiansen MD Time: 05/01 938 Comment: Per eICU attending klaudia, going to 82 ICU By: Lisa Christiansen MD Dissection of aorta, unspecified portion of aorta (HCC) Hypertension, unspecified type Class 1 obesity with body mass index (BMI) of 30.0 to 30.9 in adult, unspecified obesity type, unspecified whether serious comorbidity present Meron Monterroso MD Resident 05/01/23 0701 Cosigned by Nagi Landa MD at 05/01/2023 11:33 PM ELECTRO OPTICS ENGINEER TRO OPTICS ENGINEER TRO OPTICS ENGINEER Associated attestation - Nagi Landa MD - 05/01/2023 11:33 PM ELECTRO OPTICS ENGINEER I have seen and examined the patient on 05/01/2023. I agree with the findings and plan of care as documented in the resident's note. * Otoniel Fernandez, BRIA - 05/01/2023 5:03 AM CST Pt to the ER via EMS from OSH with complaint of chest pain. Pt arrives with complaint of chest painsince 0130 this am. 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 Pt A&Ox4, Hypertensive to 180's. TRO OPTICS ENGINEER * Gracie Cee RN - 05/01/2023 4:58 AM CST [facility] Expected date: 05/01/23 Expected time: 4:46 AM Means of arrival: Comments: Gracie Cee RN 05/01/23 0457 TRO OPTICS ENGINEER documented in this encounter Miscellaneous Notes * Result Encounter Note - Faustino Herrera MD - 05/16/2023 4:[address] reviewed, demonstrating interval growth. Given his SCI after index procedure, will plan to manage medically at this point. Will need repeat CTA CAP in 1 m post discharge with plans for intervention if growth persists. TRO OPTICS ENGINEER * Plan of Care - Nataliya English RN - 05/16/2023 4:09 PM CST Problem: Activity: Goal: Mobility will improve 05/16/2023 1609 by Nataliya English RN Outcome: Adequate for Discharge 05/16/2023 1608 by Nataliya English RN Outcome: Adequate for Discharge Problem: Lack of Knowledge: Goal: Understanding of ways to prevent future skin breakdown will improve 05/16/2023 1609 by Nataliya English RN Outcome: Adequate for Discharge 05/16/2023 1608 by Nataliya English RN Outcome: Adequate for Discharge Goal: Ability to identify appropriate dietary choices will improve 05/16/2023 1609 by Nataliya English RN Outcome: Adequate for Discharge 05/16/2023 1608 by Nataliya English RN Outcome: Adequate for Discharge Problem: Nutritional: Goal: Dietary intake will improve 05/16/2023 1609 by Nataliya English RN Outcome: Adequate for Discharge 05/16/2023 1608 by Nataliya English RN Outcome: Adequate for Discharge Goal: Ability to maintain a balanced intake and output will improve 05/16/2023 1609 by Nataliya English RN Outcome: Adequate for Discharge 05/16/2023 1608 by Nataliya English RN Outcome: Adequate for Discharge Problem: Skin Integrity: Goal: Risk for impaired skin integrity will decrease 05/16/2023 1609 by Nataliya English RN Outcome: Adequate for Discharge 05/16/2023 1608 by Nataliya English RN Outcome: Adequate for Discharge Goal: Ability to demonstrate warm and dry skin will improve 05/16/2023 1609 by Nataliya English RN Outcome: Adequate for Discharge 05/16/2023 1608 by Nataliya English RN Outcome: Adequate for Discharge Goal: Circulation will improve to fullest extent possible 05/16/2023 1609 by Nataliya English RN Outcome: Adequate for Discharge 05/16/2023 1608 by Nataliya English RN Outcome: Adequate for Discharge Problem: Health Behavior: Goal: Understanding of discharge needs will improve 05/16/2023 1609 by Nataliya English RN Outcome: Adequate for Discharge 05/16/2023 1608 by Nataliya English RN Outcome: Adequate for Discharge Problem: Lack of Knowledge: Goal: Ability to develop a pain control plan will improve 05/16/2023 1609 by Nataliya English RN Outcome: Adequate for Discharge 05/16/2023 1608 by Nataliya English RN Outcome: Adequate for Discharge Goal: Ability to identify pain intensity on a pain scale and rate it consistently will improve 05/16/2023 1609 by Nataliya English RN Outcome: Adequate for Discharge 05/16/2023 1608 by Nataliya English RN Outcome: Adequate for Discharge Goal: Ability to notify healthcare provider of pain before it becomes unmanageable or unbearable will improve 05/16/2023 1609 by Nataliya English RN Outcome: Adequate for Discharge 05/16/2023 1608 by Nataliya English RN Outcome: Adequate for Discharge Problem: Medication: Goal: Satisfaction with pain management regimen will improve 05/16/2023 1609 by Nataliya English RN Outcome: Adequate for Discharge 05/16/2023 1608 by Nataliya English RN Outcome: Adequate for Discharge Problem: Sensory: Goal: Ability to identify factors that increase the pain will improve 05/16/2023 1609 by Nataliya English RN Outcome: Adequate for Discharge 05/16/2023 1608 by Nataliya English RN Outcome: Adequate for Discharge Goal: Pain level will decrease 05/16/2023 1609 by Nataliya English RN Outcome: Adequate for Discharge 05/16/2023 1608 by Nataliya English RN Outcome: Adequate for Discharge Problem: Mobility Goal: LTG - Patient will ambulate community distance Description: independent Outcome: Adequate for Discharge Goal: STG - Patient will ambulate Description: 300' with no AD and SBA Outcome: Adequate for Discharge Goal: STG - Patient will ascend and descend a flight of stairs Description: with rail and Min A Outcome: Adequate for Discharge Problem: Transfers Goal: STG - Transfer from bed to chair Description: SBA Outcome: Adequate for Discharge Goal: STG - Patient to transfer to and from sit to supine Description: SBA Outcome: Adequate for Discharge Goal: STG - Patient will transfer sit to and from stand Description: SBA Outcome: Adequate for Discharge Problem: PT Misc Goal: PT STG - Patient and caregivers will participate in and demonstrate understanding of therapeutic exercise and safe mobility strategies to improve independence with functional mobility. Outcome: Adequate for Discharge Problem: Lack of Knowledge: Goal: Ability to state ways to decrease the risk of falls will improve 05/16/2023 1609 by Nataliya English RN Outcome: Adequate for Discharge 05/16/2023 1608 by Nataliya English RN Outcome: Adequate for Discharge Problem: Safety: Goal: Will remain free from falls 05/16/2023 1609 by Nataliya English RN Outcome: Adequate for Discharge 05/16/2023 1608 by Nataliya English RN Outcome: Adequate for Discharge Goal: Will remain free from injury from falls 05/16/2023 1609 by Nataliya English RN Outcome: Adequate for Discharge 05/16/2023 1608 by Nataliya English RN Outcome: Adequate for Discharge Goal: Will remain free from falls and injury in home environment 05/16/2023 1609 by Nataliya English RN Outcome: Adequate for Discharge 05/16/2023 1608 by Nataliya English RN Outcome: Adequate for Discharge Problem: Dressings Lower Extremities Goal: STG - Patient to complete lower body dressing Description: With supervision Outcome: Adequate for Discharge Problem: Grooming Goal: STG - Patient will complete grooming Description: Standing at sink with supervision Outcome: Adequate for Discharge Problem: Toileting Goal: STG - Patient will complete toileting tasks with Description: supervision Outcome: Adequate for Discharge Problem: Transfers Goal: STG - Patient will perform toilet transfer Description: To toilet in bathroom with supervision Outcome: Adequate for Discharge Problem: OT Misc Goal: OT LTG - Misc 1 Description: Pt will be independent in ADLS Outcome: Adequate for Discharge Goals: Clinical Goals for the Shift: OOB, therapy, cat scan, dc planning Summary: Pt has been out of bed all day. Pt had cat scan. Orders for dc placed TRO OPTICS ENGINEER * Assessment & Plan Note - Meron Parekh NP - 05/16/2023 10:44 AM ELECTRO OPTICS ENGINEER Associated Problem(s): Urinary retention Patient with urinary retention requiring straight cath X1 05/15, now voiding without any issues. - Continue Flomax. - Patient requests urology follow up, referral placed. TRO OPTICS ENGINEER * Plan of Care - Gladys Dietz RN - 05/16/2023 6:40 AM ELECTRO OPTICS ENGINEER Goals: Clinical Goals for the Shift: VSS, pain management, monitor I/Os Summary: VSS. Pain managed with pain medications. Plan of care continued. Problem: Activity: Goal: Mobility will improve Outcome: [...] improve to fullest extent possible Outcome: Progressing Problem: Health Behavior: Goal: Understanding [...] and injury in home environment Outcome: Progressing TRO OPTICS ENGINEER * Plan of Care - Gladys Dietz RN - 05/15/2023 5:58 AM ELECTRO OPTICS ENGINEER Goals: Clinical Goals for the Shift: VSS, monitor output, pain management, encourage fluid intake, sleep hygiene Summary: VSS. Pt remained free from injury. Straight cathed pt at 0430 and emptied 700mL of urine per order- pt tolerated well. Pain being managed with pain medication and heat packs. Plan of care continued. Problem: Activity: Goal: Mobility will improve Outcome: [...] improve to fullest extent possible Outcome: Progressing Problem: Health Behavior: Goal: Understanding [...] and injury in home environment Outcome: Progressing TRO OPTICS ENGINEER * Plan of Care - Gladys Dietz RN - 05/14/2023 6:09 AM ELECTRO OPTICS ENGINEER Goals: Clinical Goals for the Shift: VSS, monitor I/Os, pain management, sleep hygiene Summary: VSS. Pt remained free from injury. Pain managed with pain medications and heat packs. Planof care continued. Problem: Activity: Goal: Mobility will improve 05/14/2023 0609 by Gladys Dietz RN Outcome: Progressing 05/14/2023 0600 by Gladys Dietz RN Outcome: Progressing Problem: Lack of Knowledge: Goal: Understanding of ways to prevent future skin breakdown will improve 05/14/2023 0609 by Gladys Dietz RN Outcome: Progressing 05/14/2023 06 by Gladys Dietz RN Outcome: Progressing Goal: Ability to identify appropriate dietary choices will improve 05/14/2023 0609 by Gladsy Dietz RN Outcome: Progressing 05/14/2023 06 by Gladys Dietz RN Outcome: Progressing Problem: Nutritional: Goal: Dietary intake will improve 05/14/2023 0609 by Gladys Dietz RN Outcome: Progressing 05/14/2023 06 by Gladys Dietz RN Outcome: Progressing Goal: Ability to maintain a balanced intake and output will improve 05/14/2023 0609 by Gladys Dietz RN Outcome: Progressing 05/14/2023 06 by Gladys Dietz RN Outcome: Progressing Problem: Skin Integrity: Goal: Risk for impaired skin integrity will decrease 05/14/2023608 by Gladys Dietz RN Outcome: Progressing 05/14/2023599 by Gladys Dietz RN Outcome: Progressing Goal: Ability to demonstrate warm and dry skin will improve 05/14/2023 06 by Gladys Dietz RN Outcome: Progressing 05/14/2023599 by Gladys Dietz RN Outcome: Progressing Goal: Circulation will improve to fullest extent possible 05/14/2023608 by Gladys Dietz RN Outcome: Progressing 05/14/2023599 by Gladys Dietz RN Outcome: Progressing Problem: Health Behavior: Goal: Understanding of discharge needs will improve 05/14/2023608 by Gladys Dietz RN Outcome: Progressing 05/14/2023599 by Gladys Dietz RN Outcome: Progressing Problem: Lack of Knowledge: Goal: Ability to develop a pain control plan will improve 05/14/2023608 by Gladys Dietz RN Outcome: Progressing 05/14/2023599 by Gladys Dietz RN Outcome: Progressing Goal: Ability to identify pain intensity on a pain scale and rate it consistently will improve 05/14/2023608 by Gladys Dietz RN Outcome: Progressing 05/14/2023599 by Gladys Dietz RN Outcome: Progressing Goal: Ability to notify healthcare provider of pain before it becomes unmanageable or unbearable will improve 05/14/2023608 by Gladys Dietz RN Outcome: Progressing 05/14/2023599 by Gladys Dietz RN Outcome: Progressing Problem: Medication: Goal: Satisfaction with pain management regimen will improve 05/14/2023608 by Gladys Dietz RN Outcome: Progressing 05/14/2023599 by Gladys Dietz RN Outcome: Progressing Problem: Sensory: Goal: Ability to identify factors that increase the pain will improve 05/14/2023 0609 by Gladys Dietz RN Outcome: Progressing 05/14/2023 06 by Gladys Dietz RN Outcome: Progressing Goal: Pain level will decrease 05/14/2023 0609 by Gladys Dietz RN Outcome: Progressing 05/14/2023 06 by Gladys Dietz RN Outcome: Progressing Problem: Lack of Knowledge: Goal: Ability to state ways to decrease the risk of falls will improve 05/14/2023 06 by Gladys Dietz RN Outcome: Progressing 05/14/2023 06 by Gladys Dietz RN Outcome: Progressing Problem: Safety: Goal: Will remain free from falls 05/14/2023 06 by Gladys Dietz RN Outcome: Progressing 05/14/2023 06 by Gladys Dietz RN Outcome: Progressing Goal: Will remain free from injury from falls 05/14/2023 0609 by Gladys Dietz RN Outcome: Progressing 05/14/2023 06 by Gladys Dietz RN Outcome: Progressing Goal: Will remain free from falls and injury in home environment 05/14/2023 06 by Gladys Dietz RN Outcome: Progressing 05/14/2023 06 by Gladys Dietz RN Outcome: Progressing [employer]O [employer] ENGINEER * Plan of Care - Josh Petersen RN - 05/13/2023 6:46 PM ELECTRO [employer] ENGINEER Problem: Activity: Goal: Mobility will improve Outcome: [...] improve to fullest extent possible Outcome: Progressing Problem: Health Behavior: Goal: Understanding [...] Progressing Goals: Clinical Goals for the Shift: maintain hemodynamic stability, monitor I&O and labs, SBP 140-180, q4 nv checks, pain control, provide emotional support Summary: VSS, ambulatory, pain control, turns sulf [employer]O [employer] ENGINEER * Assessment & Plan Note - Meron Parekh NP - 05/13/2023 12:49 PM ELECTRO [employer] ENGINEER Associated Problem(s): HTN (hypertension) Hx of uncontrolled HTN, non-compliant to medications. - Need to avoid hypotension in post TEVAR period. - SBP goal less than 180. - Currently on Coreg 12.5mg BID. TRO OPT[employer] ENGINEER * Assessment & Plan Note - Meron Parekh NP - 05/13/2023 12:43 PM ELECTRO [employer] ENGINEER Associated Problem(s): Pneumonia Tracheal aspirate 05/05 with Haemophilus Inf - susana(05/04 - 05/10), linezolid (05/04-05/06) [employer]O [employer] ENGINEER * Assessment & Plan Note - Meron Parekh NP - 05/13/2023 12:42 PM ELECTRO [employer] ENGINEER Associated Problem(s): Epistaxis Significant nose bleed in the OR requiring intra-op ENT c/s. DL performed, no other sources of bleeding visualized. ACT post protamine 149. - ENT following - ocean spray tid - no other s/s bleeding TRO OPTICS ENGINEER * Assessment & Plan Note - Meron Parekh NP - 05/13/2023 12:41 PM ELECTRO [employer] ENGINEER Associated Problem(s): Dissection of thoracoabdominal aorta (CMS/HCC) (HCC) Patient presented on 05/01 with acute Chest [...] plan to discharge to home this afternoon. [employer]O [employer] ENGINEER TRO [employer] ENGINEER TRO [employer] ENGINEER [employer]O [employer] ENGINEER [employer] ENGINEER * Plan of Ann - Vivian Wilcox RN - 05/13/2023 9:16 AM CST Goals: Clinical Goals for the Shift: maintain hemodynamic stability, monitor I&O and labs, SBP 140-180, q4 nv checks, pain control, provide emotional support Summary: q4 nv checks WNL, TTF, all VS, assessments, and cares per flowsheets; all meds given per MAR Problem: Activity: Goal: Mobility will improve Outcome: [...] improve to fullest extent possible Outcome: Progressing Problem: Health Behavior: Goal: Understanding [...] and injury in home environment Outcome: Progressing [employer] ENGINEER * Plan of Ann - Veronica Savage RN - 05/13/2023 4:17 AM CST Clinical Goals for the Shift: SBP 140-180, monitor I/Os and labs, sleep hygiene, pain control Problem: Activity: Goal: Mobility will improve Outcome: Progressing Problem: Lack of Knowledge: Goal: Understanding of ways to prevent future skin breakdown will improve Outcome: Progressing Problem: Nutritional: Goal: Dietary intake will improve Outcome: Progressing Problem: Skin Integrity: Goal: Risk for impaired skin integrity will decrease Outcome: Progressing Problem: Health Behavior: Goal: Understanding of discharge needs will improve Outcome: Progressing Problem: Lack of Knowledge: Goal: Ability to develop a pain control plan will improve Outcome: Progressing Problem: Medication: Goal: Satisfaction with pain management regimen will improve Outcome: Progressing Problem: Sensory: Goal: Pain level will decrease Outcome: Progressing [employer] ENGINEER * Plan of Care - Veronica Bobo RN - 05/12/2023 6:24 PM CST Goals: Move to floor, sleep hygiene, pain control Clinical Goals for the Shift: maintain hemodynamic stability, monitor I&O and labs, pulm hygiene, pain control, q2 nv checks, TTF Summary: Cardiac: patient was in NSR for shift and did not require any hemodynamic support, BP within parameters, received 1 pRBC, and removed CVC, Respiratory: IS encourage and educated, NV: q2 nv checks WNL, Pain: patient reports consistent pain despite q3 oxycodone, Activity: patient was able towalk the cantu with PT, able to move to and from chair with minimal support, Skin: no skin changes observed during shift Problem: Activity: Goal: Mobility will improve Outcome: Progressing Problem: Lack of Knowledge: Goal: Understanding of ways to prevent future skin breakdown will improve Outcome: Progressing Problem: Skin Integrity: Goal: Risk for impaired skin integrity will decrease Outcome: Progressing Goal: Ability to demonstrate warm and dry skin will improve Outcome: Progressing Goal: Circulation will improve to fullest extent possible Outcome: Progressing Problem: Health Behavior: Goal: Understanding [...] management regimen will improve Outcome: Progressing Problem: Safety: Goal: Will remain free from falls Outcome: Progressing Goal: Will remain free from injury from falls Outcome: Progressing [employer] ENGINEER * Plan of Care - Yulisa Polk RRT - 05/12/2023 3:48 AM CST Patient did not wear hospital provided NPPV overnight. [employer] ENGINEER * Plan of Care - Sally Ross RN - 2023 12:59 PM CST Goals: Clinical Goals for the Shift: VSS, PT/OT, OOBTC, Pain control Summary: Problem: Activity: Goal: Mobility will improve Outcome: [...] improve to fullest extent possible Outcome: Progressing Problem: Health Behavior: Goal: Understanding [...] and injury in home environment Outcome: Progressing [employer] ENGINEER * Plan of Care - Mateo Maza, FAY - 2023 4:43 AM CST [facility] CPAP PLAN: The patient will conitnue to wear [facility] CPAP for JANELLE when sleeping. V 60 CPAP 7 cmH2O, [employer] ENGINEER * Plan of Care - Veronica Savage RN - 05/10/2023 10:25 PM CST Clinical Goals for the Shift: SBP 140-180, titrate cardene per MAP goal, monitor I/Os and labs, sleep hygiene, pain control Problem: Activity: Goal: Mobility will improve Outcome: Progressing Problem: Lack of Knowledge: Goal: Understanding of ways to prevent future skin breakdown will improve Outcome: Progressing Goal: Ability to identify appropriate dietary choices will improve Outcome: Progressing Problem: Nutritional: Goal: Dietary intake will improve Outcome: Progressing Problem: Health Behavior: Goal: Understanding of discharge needs will improve Outcome: Progressing Problem: Lack of Knowledge: Goal: Ability to develop a pain control plan will improve Outcome: Progressing [employer] ENGINEER * Plan of Care - Sally Ross RN - 05/10/2023 12:22 PM CST Goals: Clinical Goals for the Shift: VSS, remove lumbar drian, BP goals, PT/OT Summary: Problem: Activity: Goal: Mobility will improve Outcome: [...] improve to fullest extent possible Outcome: Progressing Problem: Health Behavior: Goal: Understanding [...] Goal: Pain level will decrease Outcome: Progressing [employer] ENGINEER * Plan of Care - Teagan Jung RRT - 05/10/2023 4:05 AM CST NPPV - PATIENT WORE Situation: The patient was ordered on NPPV for nocturnal use due to a history of Central Sleep Apnea (CSA). Patient was placed on their hospital provided NPPV machine. Settings: NPPV Mode: CPAP EPAP Pressure: 7 cm H20 FIO2: 30 %. Tolerance: The patient tolerated the NPPV without issue. Plan: Proceed as ordered and continue to monitor the patient. [employer] ENGINEER * Plan of Care - Alana Yee RN - 05/09/2023 6:36 PM CST Goals: Clinical Goals for the Shift: AMP>100, pain control, Q1NV checks, clamp lumbar drain, sleep hygeine Summary: lumbar drain clamped 0800, pain controlled with medications per mar, patient drowsy but woke up often to help manage delirium, OOBTC for most of the day. Problem: Activity: Goal: Mobility will improve Outcome: [...] improve to fullest extent possible Outcome: Progressing Problem: Health Behavior: Goal: Understanding [...] Goal: Pain level will decrease Outcome: Progressing [employer]O [employer] ENGINEER * Plan of Care - Gardenia Resendiz LCSW - 05/09/2023 3:16 PM CST Social work received notification through [employer] that patient has been accepted to [facility] [employer] for mortgage assistance. [facility] to reach out to patient/SO directly for assistance. Gardenia Resendiz LCSW [employer] ENGINEER * Plan of Care - Christina Jones RN - 05/09/2023 3:05 PM CST Medical chart reviewed for medical necessity. Report per rounds: The patient is not medically stable to discharge today. In ICU on Lactated Ringer's (LR) infusion 10 mL/hr, IV, Continuous Rate/Dose Verify, 10 mL/hr at 05/09 1400 lidocaine in dextrose 5% 2 g/250 mL (8 mg/mL) infusion (premix) 1 mg/kg/hr, IV, Continuous Rate/Dose Verify, 1 mg/kg/hr at 05/09 1400 niCARdipine (CARDENE) 125,000 mcg in sodium chloride 0.9% 250 mL (500 mcg/mL) infusion 0-2.5 mcg/kg/min, IV, Titrated Rate/Dose Verify, 1 mcg/kg/min at 05/09 1400 sodium chloride 0.9% solution 3-12 mL/hr, cath, Continuous New Bag, 6 mL/hr at 05/06 1000 sodium chloride 0.9% solution 3-12 mL/hr, cath, Continuous Rate/Dose Verify, 6 mL/hr at 05/09 1400 ADD: TBD Referrals made: TBD Support following discharge: meron blankenship [phone] Solange Ireland [phone] Transportation: ambulance Patient's Identified Problem/Goal Problem: Ensure acute medical needs are met and that patient has a safe discharge plan. Goal: Secure a discharge plan that patient/family are agreeable with and ensure patient has continuum of care. Patient and family are agreeable with plan. manager developmental will continue to follow and assist with discharge planning as needed TRO OPT[employer] ENGINEER * Plan of Care - Mateo Maza RRT - 05/09/2023 5:30 AM CST [facility] CPAP PLAN: The patient will continue to wear [facility] CPAP when sleeping for JANELLE. TRO OPT[employer] ENGINEER * Plan of Care - Karolina Arana RN - 05/08/2023 9:17 PM CST Problem: Activity: Goal: Mobility will improve Outcome: [...] improve to fullest extent possible Outcome: Progressing Problem: Health Behavior: Goal: Understanding [...] Goal: Pain level will decrease Outcome: Progressing TRO OPT[employer] ENGINEER * Plan of Ann - Pooja Cameron RN - 05/08/2023 5:47 PM ELECTRO [employer] ENGINEER Problem: Activity: Goal: Mobility will improve Outcome: [...] improve to fullest extent possible Outcome: Progressing Problem: Health Behavior: Goal: Understanding [...] Goal: Pain level will decrease Outcome: Progressing Goals: Clinical Goals for the Shift: Map >100, pain control,monitor Neuro status Summary: MAP>100, pain controlled with continual adjustments to pain regimen, neuro changes monitored per orders TRO OPTICS ENGINEER * Plan of Karolina lOiver RN - 05/07/2023 11:26 PM ELECTRO OPTICS ENGINEER Problem: Activity: Goal: Mobility will improve Outcome: [...] improve to fullest extent possible Outcome: Progressing Problem: Health Behavior: Goal: Understanding [...] Goal: Pain level will decrease Outcome: Progressing Goals: Clinical Goals for the Shift: Hemodynamics and lab monitoring, pain control, Q1H neuro and neruvasxular checks. TRO OPTICS ENGINEER * Plan of Care - Pooja Cameron RN - 05/07/2023 4:29 PM ELECTRO OPTICS ENGINEER Problem: Activity: Goal: Mobility will improve Outcome: [...] improve to fullest extent possible Outcome: Progressing Problem: Health Behavior: Goal: Understanding [...] Goal: Pain level will decrease Outcome: Progressing Goals: Clinical Goals for the Shift: Map >100, pain control, possible CT, bumex Summary: MAP>100, pain regimen adjusted, HDS TRO OPTICS ENGINEER * Plan of Care - Pooja Cameron RN - 05/06/2023 4:42 PM ELECTRO OPTICS ENGINEER Problem: Activity: Goal: Mobility will improve Outcome: [...] improve to fullest extent possible Outcome: Progressing Problem: Health Behavior: Goal: Understanding [...] Goal: Pain level will decrease Outcome: Progressing Goals: Clinical Goals for the Shift: Map >100, pain control, possible CT, bumex Summary: Map maintained >100, pain controlled with prn pain meds, MRI is current plan vs CT, bumex given as ordered TRO OPTICS ENGINEER * Medical Student - Quincy De La Cruz - 05/06/2023 9:30 AM CST Images from the original note were not included. Neurology Consult Note Visit date: 05/06/2023 Patient: Eriberto Chau Neurology Initial Consult Note Requesting Provider or Service: Faustino Herrera MD, Vascular Surgery Reason for Consult: lower extremity weakness Subjective HISTORY OF PRESENT ILLNESS Eriberto Chau is a 32 y.o. 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 Now unable to move his lower extremities. Symptoms started at 1am on 05/01 with acute chest pain, abdominal pain, and SOB. Presented to [facility] about [address] showed a TBAD with likely entry tear in zone 5 (level of diaphragm), false lumen extending from Z2- 10, celiac/L renal are patent and arising from false lumen, SMA/R renal patent arising from true lumen, prompting transfer to [facility]. No evidence of type A dissection so receiving medical management. Impulse control with SBP goal < 100 and HR goal <70. Able to move all extremities on 05/01. On 05/[address] which showed interval progression of type B dissection. Cardiothoracic surgery was consulted, felt CTA findings were not suggestive of type A dissection. Cardiothoracic and vascular surgery decided to opt for endovascular repair in conjunction with cardiac service. Patient underwent endovascular repair on 05/02. Remained on impulse control with SBP goal 100-120 and HR <60 after surgery. Remained intubated until 05/05 for respiratory insufficiency. After intubation reported inability to move his legs. Sensation preserved at that time. No arm involvement. Neurosurgery placed lumbar drain and recommend MAP >90 or as high as medically safe. Vascular surgery recs SBP 140-160. We've been consulted for spinal infarct recommendations. Today, he demonstrate some movement of his BLE. PAST MEDICAL & SURGICAL HISTORY No past medical history on file. No past surgical history on file. FAMILY HX: No family history on file. SOCIAL HX: Not elicited OUTPATIENT MEDICATIONS HOME MEDICATIONS : Not on File INPATIENT MEDICATIONS Scheduled Medications: Scheduled Medications Medication Dose Route Frequency acetaminophen (TYLENOL) tablet 1,000 mg 1,000 mg oral Q6H SUSAN aspirin chewable tablet 81 mg 81 mg oral Daily bumetanide (BUMEX) 0.25 mg/mL injection 2 mg 2 mg intravenous Q6H [facility] carvediloL (COREG) tablet 50 mg 50 mg oral BID chlorhexidine (PERIDEX) 0.12 % solution 15 mL 15 mL swish & spit BID dilTIAZem (CARDIZEM) injection 15 mg 15 mg intravenous Q8H docusate (COLACE) 10 mg/mL oral liquid 100 mg 100 mg oral BID [Held by Provider] heparin 5,000 unit/mL injection 5,000 Units 5,000 Units subcutaneous Q8H [facility] lidocaine (ASPERCREME) 4 % patch 2 patch 2 patch transdermal Q24H lidocaine (XYLOCAINE) 10 mg/mL (1 %) injection 50 mg 5 mL subcutaneous Once lidocaine (XYLOCAINE) 20 mg/mL (2 %) injection 200 mg 10 mL subcutaneous Once lidocaine PF (XYLOCAINE) 10 mg/mL (1 %) preservative free injection - ADS Override Pull lidocaine PF (XYLOCAINE) 10 mg/mL (1 %) preservative free injection 200 mg 20 mL infiltration Once linezolid (ZYVOX) 600 mg/300 mL in dextrose 5% (premix) 600 mg 600 mg intravenous Q12H [facility] lisinopriL (PRINIVIL,ZESTRIL) tablet 20 mg 20 mg oral Daily meropenem (MERREM) 1,000 mg/110 mL in sodium chloride 0.9% (premix) 1,000 mg 1,000 mg intravenous Q8H [facility] metoprolol (LOPRESSOR) tablet 100 mg 100 mg oral BID polyethylene glycol (MIRALAX) packet 17 g 17 g oral Daily potassium chloride 20 mEq/50 mL in sterile water (premix) 20 mEq 20 mEq intravenous Q6H potassium chloride 40 mEq/100 mL in sterile water (premix) 40 mEq 40 mEq intravenous Once senna 1.76 mg/mL syrup 8.8 mg 8.8 mg oral BID sodium chloride (OCEAN) 0.65 % nasal spray 2 spray 2 spray each nostril Q2H while awake sodium chloride 0.9% flush 0.5-20 mL 0.5-20 mL intra-catheter Q8H [facility] Continuous Medications: Current Facility-Administered Medications Medication Dose Route Frequency Last Admin clevidipine 0-32 mg/hr intravenous Titrated Stopped at 05/06/23 0900 dexmedeTOMIDine 0-1.5 mcg/kg/hr intravenous Titrated 0.7 mcg/kg/hr at 05/06/23 09 Lactated Ringer's 10 mL/hr intravenous Continuous 10 mL/hr at 05/06/23 09 sodium chloride 0.9% 3-12 mL/hr intra-catheter Continuous 3 mL/hr at 05/06/23 09 sodium chloride 0.9% 3-12 mL/hr intra-catheter Continuous 6 mL/hr at 05/06/23 1000 PRN Medications: albuterol HFA, 2 puff sodium chloride 0.9%, 30 mL, 30 mL at 05/06/23 0827 sodium chloride 0.9%, 30 mL, 30 mL at 05/03/23 0855 HYDROmorphone, 0.5 mg, 0.5 mg at 05/06/23 0410 lidocaine PF, metoprolol, 10 mg, 10 mg at 05/05/23 1709 midazolam, 2 mg, 2 mg at 05/06/23 0420 ondansetron, 4 mg, 4 mg at 05/06/23 0555 oxyCODONE, 5 mg, 5 mg at 05/06/23 0543 potassium chloride, 40 mEq, 40 mEq at 05/05/232001 sodium chloride 0.9%, 0.5-20 mL REVIEW OF SYSTEMS A complete review of symptoms was performed including constitutional symptoms, cardiovascular, respiratory, gastrointestinal, genitourinary, musculoskeletal, neurological, psychiatric, endocrine, immunologic, integumentary, hematological, eyes, ears, nose, mouth and throat. All symptoms negative except as per HPI. Objective PHYSICAL EXAM Vitals: 24 hr Min/Max: Temp Min: 37.4 ??C (99.3 ??F) Max: 38.5 ??C (101.3 ??F) Pulse Min: 59 Max: 99 BP Min: 101/56 Max: 181/85 Resp Min: 9 Max: 36 SpO2 Min: 91 % Max: 100 % Most Recent: Vitals: 05/06/23899 BP: Pulse: 82 Resp: 17 Temp: 37.4 ??C (99.3 ??F) SpO2: 96% Height: 175.3 cm (5' 9 ) Weight: 111.6 kg (246 lb 0.5 oz) BMI (Calculated): 36.3 GENERAL EXAMINATION CONSTITUTIONAL: on NRB, mild distress, resting comfortably HENT: normocephalic, atraumatic, mucous membranes moist EYES: anicteric sclera, conjunctival hemorrhage on L eye PULM: no increased work of breathing CV/EXT: Extremities are warm and well perfused; no visible edema SKIN: dry, no suspicious rashes or lesions noted PSYCH: calm and cooperative, eye contact appropriate for medical condition NEUROLOGIC EXAM: on 0.7 -> 0.5 dex Mental Status:The patient is drowsy and oriented to person, and place. Language: Minimal speech output. Unable to name objects on NIHSS card. Follows one step commands but not cross body. Cranial Nerves II-XII: PERRL. Extraocular movements are full and without nystagmus. Face is symmetric. There is no dysarthria. Tongue protrudes midline. Motor: Strength is at least 4/5 on BUE. RLL prox 3/5, distal 2/5, LLL prox 2/5, distal 2/5 Muscle tone and bulk are normal. Reflexes: Deferred Sensation: coarse touch is normal in all four extremities. Coordination: Deferred. Ambulation: Deferred Lab/Radiology/Diagnostic Review: Laboratory Data Recent Labs Lab Units 05/06/2313105/06/2312705/05/[id number]/05/23192105/05/23 0012 05/04/23 0303 05/04/23 0120 WBC K/cumm -- 23.8* -- -- 16.4* -- 13.5* HEMOGLOBIN, POC g/dL 10.7* -- 9.9* < > -- < > -- HEMOGLOBIN g/dL -- 10.5* -- -- 9.4* -- 9.1* HEMATOCRIT % -- 31.2* -- -- 27.9* -- 25.2* HEMATOCRIT POC % 32.0* -- 30.0* < > -- < > -- PLATELETS K/cumm -- 193 -- -- 132* -- 115* < > = values in this interval not displayed. Recent Labs Lab Units 05/06/2313105/05/23211405/05/23192105/05/23 0012 05/04/23 0303 05/04/23 0120 05/03/23 0328 05/03/23 0010 SODIUM mmol/L -- -- -- 145 -- 140 -- 134* POTASSIUM PLASMA mmol/L -- -- -- 4.4 -- See Comment -- See Comment CHLORIDE mmol/L -- -- -- 106 -- 109 -- 106 CO2 mmol/L -- -- -- 30 -- 23 -- 18* BUN SERUM mg/dL -- -- -- 9 -- 9 -- 16 CREATININE mg/dL -- -- -- 1.14 -- 1.38* -- 1.27 GLUCOSE mg/dL -- -- -- 126 -- 92 -- 118 POC GLUCOSE MONITOR mg/dL 122 140 140 -- < > -- < > -- CALCIUM mg/dL -- -- -- 8.1* -- 7.3* -- 7.7* < > = values in this interval not displayed. Recent Labs Lab Units 05/02/23 1600 05/02/23 1012 05/02/23 0410 05/01/23 2352 05/01/23 1928 ALK PHOS Units/L 59 63 65 < > 71 BILIRUBIN TOTAL mg/dL 0.5 0.4 0.4 < > 0.4 BILIRUBIN DIRECT mg/dL -- -- -- -- <0.2 TOTAL PROTEIN g/dL 6.5 5.9* 6.2* < > 6.2* ALT Units/L See Comment See Comment See Comment < > 17 AST Units/L See Comment See Comment See Comment < > 19 < > = values in this interval not displayed. No results found for: HGBA1C , No results found for: LDLCALC Neuro Diagnostics: No results found for this or any previous visit. Assessment /Plan ASSESSMENT AND PLAN Eriberto Cahu is a 32 y.o. 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 THIS IS A MEDICAL STUDENT NOTE FOR EDUCATION PURPOSES. Please refer to resident note for recs. Mr. Chau reported being unable to move his lower extremities after extubation on POD3 from endovascular surgery. Given the clinical context and the symptom presentation, this is highly suspicious for a spinal cord infarct. Neurosurgery saw him and placed a lumbar drain and recommended spine MRI which is pending. BP goal of 140-160 based on neurosurgery and vascular surgery recs. 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 Agree with vasopressors. F/u on spine MRI Stroke work up: A1c, lipid, SMART consult, depression screen Continue Aspirin 81mg Thank you for this consult. Please do not hesitate to contact us with any questions or concerns. If you have any questions or need re-evaluation in the interim, please contact neurology consults at [phone] (senior) and specify that this consult was staffed with Consult Team A. Quin[facility] De [facility] Medical Student Cosigned by Bridgett Gonzalez MD at 05/06/2023 10:50 PM ELECTRO OPTICS ENGINEER TRO OPTICS ENGINEER TRO OPTICS ENGINEER Associated attestation - Bridgett Gonzalez MD - 05/06/2023 10:50 PM ELECTRO OPTICS ENGINEER Attending Documentation: I have seen and examined the patient on 05/06/23. Please refer to resident note for formal recommendations. Bridgett Gonzalez MD, MSc * Plan of Care - Nella Griffin, BRIA - 05/05/2023 3:59 PM ELECTRO OPTICS ENGINEER Goals: Clinical Goals for the Shift: BP/HR control, SBP 100-120, HR < 80, Q1 NV checks, pain control, wean ventilator as tolerated, monitor labs, diurese Summary: Problem: Activity: Goal: Mobility will improve Outcome: [...] improve to fullest extent possible Outcome: Progressing Problem: Health Behavior: Goal: Understanding [...] pain management regimen will improve Outcome: Progressing TRO OPTICS ENGINEER * Plan of Care - Nikky Portillo RRT - 05/05/2023 5:01 AM CST SBT WEAN - PSV Only Situation: Not applicable. Patient is on continuous PSV. Airway: ET Tube, 26 cm, at the Teeth Current Mechanical Vent Settings: Vent Type: PB 980 Adult Vent Mode: Pressure support Ventilation Pressure Support (cm H2O): 12 cm H20 PEEP/CPAP/EPAP (cm H2O): 7.5 cm H20 FiO2 (%): 40 % (Simultaneous filing. User may not have seen previous data.) Alternate WEAN / PSV / O2 Trials: Currently, patient is on continuous PSV with no plans to extubate due to Mental Status. Suction: Patient provided with PRN suctioning to assist in removal of tracheal secretions. Will assess lung sounds and monitor cough. Suctioning will be provided as need for secretion clearance and airway patency. Plan: Patient is synchronous with the ventilator at this time. Will continue to monitor and evaluate the patient TRO OPTICS ENGINEER * Plan of Care - Ana Yap RN - 05/04/2023 11:07 PM CST Problem: Activity: Goal: Mobility will improve Outcome: Progressing Problem: Lack of Knowledge: Goal: Ability to identify appropriate dietary choices will improve Outcome: Progressing Problem: Nutritional: Goal: Dietary intake will improve Outcome: Progressing Problem: Skin Integrity: Goal: Circulation will improve to fullest extent possible Outcome: Progressing Problem: Lack of Knowledge: Goal: Ability to develop a pain control plan will improve Outcome: Progressing Goal: Ability to identify pain intensity on a pain scale and rate it consistently will improve Outcome: Progressing Problem: Medication: Goal: Satisfaction with pain management regimen will improve Outcome: Progressing Problem: Sensory: Goal: Ability to identify factors that increase the pain will improve Outcome: Progressing Goal: Pain level will decrease Outcome: Progressing Goals: Clinical Goals for the Shift: BP/HR control, SBP 100-120, HR < 80, Q1 NV checks, pain control, wean ventilator as tolerated, monitor labs, diurese TRO OPTICS ENGINEER * Plan of Care - Mateo Maza RRT - 05/04/2023 3:59 AM CST SAT/SBT WEAN SAFETY SCREEN for (SBT): FAIL - FIO2: FIO2 > 50% and The patient is currently already on PSV for ventilator synchronicity. . SBT OUTCOME: FAIL - Safety Screen Failure Excluded Patient From Spontaneous Breathing Trial PURSUE EXTUBATION: NO - Failed SAFETY Screen. PLAN: Due to Safety Screen failure, maintain current settings and continue to monitor the patient TRO OPTICS ENGINEER * Plan of Care - Jill Henning RN - 05/03/2023 7:27 PM ELECTRO OPTICS ENGINEER Goals: Clinical Goals for the Shift: wean to extubate, BP and HR control Summary: Unable to extubate this shift, remains on esmolol for HR control, clevidipine drip for BP management. TRO OPTICS ENGINEER * Plan of Care - Mateo Maza RRT - 05/03/2023 5:46 AM CST SAT/SBT WEAN SAFETY SCREEN for (SBT): FAIL - PEEP: PEEP > 13rpU6B. (Patient's PEEP = 12 cm H20). SBT OUTCOME: FAIL - Safety Screen Failure Excluded Patient From Spontaneous Breathing Trial PURSUE EXTUBATION: NO - Failed SAFETY Screen. PLAN: Due to Safety Screen failure, maintain current settings and continue to monitor the patient TRO OPTICS ENGINEER * Plan of Care - Mateo Maza FAY - 05/02/2023 10:30 PM CST IMPRESSION: Patient had possible intermittent bronchospasms according to anesthesia. Patient would drop SPO2 while wheezing. Anesthesia said albuterol was very helpful . Plan: Q4 albuterol for intermittent bronchospasm. TRO OPTICS ENGINEER * Perioperative Nursing Note - Radha Sparks RN - 05/02/2023 8:35 PM ELECTRO OPTICS ENGINEER 2033 Patient began coughing, right nare started bleeding. ENT called back to room. 2044 Teagan Kwong, fellow back to room. Patient suctioned and floseal placed inside nose. 2049 1mL air removed from TR Band, 4mL total left in band at this time. TRO OPTICS ENGINEER * Perioperative Nursing Note - Radha Sparks RN - 05/02/2023 8:30 PM ELECTRO OPTICS ENGINEER 2019 intraoperative note: ENT fellow in to see patient for left nasal bleeding. Silver nitrate stick used on anterior active oozing and nare was packed with gelfoam and surgicel. 2029 1mL air removed from TR Band, total of 5mL air at this time. TRO OPTICS ENGINEER * Perioperative Nursing Note - Radha Sparks RN - 05/02/2023 8:10 PM ELECTRO OPTICS ENGINEER 2009 intraoperative note: 1mL air removed from TR Band, total of 6 remaining. TRO OPTICS ENGINEER * Perioperative Nursing Note - Radha Sparks RN - 05/02/2023 7:39 PM ELECTRO OPTICS ENGINEER 1908 Intraoperative note: TR Band placed left radial per Dr. Herrera. Total of 8mL air placed in band. 0: 1mL air removed from band, total air remaining 7mL. TRO OPTICS ENGINEER * Op Note - Faustino Herrera MD - 05/02/2023 5:45 PM CST SURGEON Faustino Herrera MD SENIOR NATIONAL ACCOUNT MANAGER Ann Goldstein MD ANESTHESIA General. PREOPERATIVE DIAGNOSIS Complicated type b aortic dissection, pain refractory to medial therapy with progression on imaging POSTOPERATIVE DIAGNOSIS Complicated type b aortic dissection, pain refractory to medial therapy with progression on imaging NAME OF OPERATION Left groin and left radial duplex ultrasound examination Left common femoral artery access with preclose, 22 Fr Retrograde passage of catheters from the femoral artery to the ascending aorta Intravascular ultrasound examination of ascending, arch, thoracoabdominal, aortoiliac segments Introduction of wire into ascending aorta from left radial approach Snaring a through and through wire from the left femoral and left radial approaches Repair of thoracic aortic dissection with a Danbury thoracic branched endograft and left subclavian stent placement Diagnostic aortic arch and left subclavian artery angiograms Repeat diagnostic intravascular ultrasound examination of ascending, arch, thoracoabdominal, aortoiliac segments INDICATIONS FOR PROCEDURE This is a 32-year-old male who was admitted to the hospital yesterday who developed worsening pain despite blood pressure control. CT scan showed interval change of the proximal aspect. In multidisciplinary discussion with Radiology, cardiac surgery, and anesthesia was recommended to go to the operating room for repair. I would a full discussion of the risks, benefits, alternatives with the patient and his mother, specifically mentioned stroke, paralysis, myocardial infarction, need for future procedures, risk of intraoperative rupture, and they verbalized understanding and gave consent. OPERATIVE FINDINGS Healthy-appearing blood vessels. There was significant true lumen collapse pre deployment. Successfully landed in zone 2 with a patent left subclavian artery stent and patent left vertebral artery. Palpable pulses on completion. DESCRIPTION OF PROCEDURE After successful induction of anesthesia, the patient was sterilely prepped and draped in the normal manner. At this time, a time out was conducted with all or staff in agreement. Ultrasound examination of left radial and left common femoral artery was performed. A copy of the ultrasound was placedon the patient[facility]. Left common femoral artery access was obtained.The needle was seen entering the artery and flow in the artery was noted. Two proglides were placed in the pre-close technique. The patient was systemically anticoagulated. We percutaneously accessed the left radial artery under real-time ultrasound guidance, and advanced a wire and a 4 Sudanese catheter into the aortic arch. Guidewires were passed to the ascending aorta and catheters advanced over the guidewires into the aorta from the femoral level and we advanced the intravascular ultrasound over thisto confirm that we were in the true lumen. We then sequentially dilated and advanced a 22 Sudanese [place] DrySeal into the proximal descending aorta. We then advanced a snare from the DrySeal, and snareda jag wire which had been advanced from the left radial approach. This was then externalized both the left radial and left femoral approach. We then advanced a 31 mm Dan[place] thoracic branched endograft after cannulating both hypo tube as well as the main lumen. This was advanced into the aortic arch. D iagnostic ascending and aortic arch angiography were performed to delineate the anatomy, and the positions were noted. We then deployed this in zone 2, and did not balloon mold this given the dissection. We used the 4 Sudanese sheath to perform a diagnostic angiogram of the left subclavian artery to define the anatomy of the left vertebral artery. A 15 mm branch was then advanced and deployed shortof this. We then balloon molded this with the mob balloon throughout it. Completion angiography demonstrated appropriate location of the device in zone 2, with coverage of the left subclavian artery,with a patent left subclavian branch, with the distal extent in zone 4. We repeated intravascular ultrasound examination which did demonstrate improved true lumen flow. Given that we are not doing this for ischemic reasons, we elected not to place any further pieces, and removed all wires cathetersand sheaths, deployed our ProGlide, and the groin was hemostatic. Heparin was reversed with protamine, and the groin was closed in layers. We then placed a TR band over the left radial puncture site which will be removed per hospital protocol They were taken to the ICU in stable condition for ENT came to pack the left nares for which he developed spontaneous hemorrhage during the case. SPECIMENS REMOVED None. ESTIMATED BLOOD LOSS 10 mL INTRAOPERATIVE FLUIDS See anesthesia record COUNTS All sponge, instrument, needle counts were correct at the end of the procedure. CONDITION ON DISCHARGE FROM OPERATING ROOM Stable. COMPLICATIONS None apparent. Left nares noted to be bleeding at completion requiring ENT to pack PRESENCE STATEMENT: I was present for the entire procedure LIGHT INDUSTRIAL MEASURES The patient received 2 g of Ancef within 60 minutes of procedure time. We utilized approximately 39cc of Optiray contrast and fluoroscopy time was 14.4 minutes (1359 mGy). . TRO OPTICS ENGINEER * Brief Op Note - Rosey Fine MD - 05/02/2023 5:45 PM ELECTRO OPTICS ENGINEER Operative Progress Note Surgical Team: Surgeon(s) and Role: * Faustino Herrera MD - Primary * Brynn Lazo MD - Resident - Assisting * Rosey Fine MD - Fellow * Ann Goldstein MD - Fellow Anesthesiologist: Ney Alex MD; Dalton Locke MD SHANK BREAKER: Heber Fernández CRNA; Jh Onofre CRNA Service Tech/Welder: Emeka Barrow MD Agricultural Plow Operator: Radha Grullon RN Agricultural Plow Operator Relief: Jill Mace RN; Radha Sparks RN Scrub Relief: Vivian Mcgregor RN Scrub: Nilson Wilson ST Agricultural Plow Operator Second: Natty Parker RN FLOAT: Essie Velazquez ST CV Washroom Operator: Aman Frederick, DATE OF SURGERY : 05/02/2023 Preoperative Diagnosis: Pre-op Diagnosis * 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 RENA at end of case showed no abnormalities of the visualized ascending aorta. Estimated Blood Loss: 10 mL Intraoperative Fluids: 1L Specimens: No specimen collected in procedure Implants: Implant Name Type Inv. Item Serial No. Dip [place] Lot No. LRB No. Used Action WILEY V[employer] CLSR PERCLOSE PROSTYLE SUT-MEDIATD CLOSURE-REPAIR SYS [id number] - [id number] Closure Device WILEY [employer] CLSR PERCLOSE PROSTYLE SUT-MEDIATD CLOSURE-REPAIR SYS [id number] [employer] [id number] Left 3 Implanted [employer] Stent Graft Aortic Covered Tag [id number] Eptfe Nitinol [id number] - [id number] - [id number] Graft [employer] Stent Graft Aortic Covered Tag [id number] Eptfe Nitinol [id number] [employer] [employer] N/A 1 Implanted [employer] Stent Graft Thoracic Side Branch Tag [id number] Eptfe Nitinol [id number] - [id number] - [id number] Stent [employer] Stent Graft Thoracic Side Branch [id number] Eptfe Nitinol [id number] [employer] [employer] Left 1 Implanted Blood/Blood Products Transfused: None Complications: None Condition on Discharge from the operating room was stable. Palpable DPs and PTs bilaterally. Rosey Fine MD Date: 05/02/2023 Time: 7:51 PM Cosigned by Faustino Herrera MD at 05/03/2023 8:06 AM ELECTRO OPTICS ENGINEER TRO OPTICS ENGINEER TRO OPTICS ENGINEER * Assessment & Plan Note - Gladys Gallagher NP - 05/02/2023 2:02 PM ELECTRO OPTICS ENGINEER Associated Problem(s): Dissection of aorta, unspecified portion of aorta (HCC) 32y/o male with uncontrolled HTN who presented to an OSH ER with acute onset shortness of breath, chest pain and back pain. 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 He was transferred to [facility] for further evaluation and treatment. Here, he was seen by vascular surgery and admitted to the CTICU for impulse control. He had recurrent worsening pain and a repeat CTA this morning. This showed ???interval cranial propagation of a type B thoracic aortic dissection which now extends from approximately zone 3 to theleft common iliac artery; no change in aortic caliber; this dissection may originate in the midthoracic aorta, or fenestration is present at the level of T4; increasing fat stranding about the aorticarch and great vessels, likely reactive in the setting of dissection propagation, no extraluminal contrast present to suggest aortic rupture?? , for which CTS was consulted. CTA reviewed with Daniel Balderas, and Mesha. All feel these findings not to be telephone service representative of a type a dissection, therefore no urgent cardiac surgery is recommended. However, he is continuing to have significant pain despite BP control and pain medications, in addition to the propagationof the dissection. Recommend reaching back out to [...] findings of HFrEF with LVEF of 41%. TRO OPTICS ENGINEER * Plan of Care - Nicole Bergman RN - 05/02/2023 11:41 AM CST Goals: Clinical Goals for the Shift: Hemodynamic monitoring, pain control Problem: Activity: Goal: Mobility will improve Outcome: Progressing Problem: Lack of Knowledge: Goal: Understanding of ways to prevent future skin breakdown will improve Outcome: Progressing Goal: Ability to identify appropriate dietary choices will improve Outcome: Progressing Problem: Skin Integrity: Goal: Risk for impaired skin integrity will decrease Outcome: Progressing Goal: Ability to demonstrate warm and dry skin will improve Outcome: Progressing Goal: Circulation will improve to fullest extent possible Outcome: Progressing Problem: Health Behavior: Goal: Understanding of discharge needs will improve Outcome: Progressing Problem: Lack of Knowledge: Goal: Ability to develop a pain control plan will improve Outcome: Progressing Problem: Medication: Goal: Satisfaction with pain management regimen will improve Outcome: Progressing Problem: Sensory: Goal: Ability to identify factors that increase the pain will improve Outcome: Progressing Goal: Pain level will decrease Outcome: Progressing TRO OPTICS ENGINEER * Plan of Ann - Karolina Arana RN - 05/02/2023 2:46 AM CST Problem: Activity: Goal: Mobility will improve Outcome: [...] improve to fullest extent possible Outcome: Progressing Problem: Health Behavior: Goal: Understanding [...] Goal: Pain level will decrease Outcome: Progressing TRO OPTICS ENGINEER * Plan of Ann - Taco Cancino RRT - 05/02/2023 2:05 AM CST NPPV - PATIENT WORE Situation: The patient was ordered on NPPV for Help with blood pressures. Patient was placed on their hospitalprovided NPPV machine. Settings: NPPV Mode: Spontaneous-time Set Breath Rate: 12 breaths/min IPAP Pressure: 10 cm H2O EPAP Min Pressure: 5 cm H20 FIO2: 40 %. Tolerance: The patient is tolerating emergent NPPV settings well. Plan: Pt appears to have JANELLE and his BP was increasing when he would obstruct, so he was placed on NPPV to help with his pressures. . TRO OPTICS ENGINEER * Significant Event - Nicole Pearce MD - 05/01/2023 11:24 PM CST 11:27 PM Pt had worsening back pain and flank pain, similar to his ED presentation, when trying to get up tourinate. SBP increased to 150 on 300 esmolol and 27 cleviprex and oral agents for impulse control. B/l DP pulses and radial pulses were present and equal. Pt was able to move all extremities, no chest pain. Vascular surgery was called, and I spoke with Chung, fellow. Given pt's presentation, vascular recommended to continue impulse and pain control, send labs/EKG and defer imaging at this time. POC labs unremarkable. Fentanyl 50 given with some improvement in pain. EKG unremarkable. Dr. Simpson aware. Nicole Pearce MD CCM Fellow TRO OPTICS ENGINEER * Initial Assessments - Yadira Portillo RN - 05/01/2023 2:11 PM CST CM Initial Assessment Interview Note Information Obtained From: Other (Specify) Name: Meron Blankenship, mother [phone] (05/01/23 1403) Admission Source: OSH, [facility]; otherwise from Home Impression: 32 y/o male with chief complaint of midsternal chest pain and cough, finding that he issuffering from a type B aortic dissection. PMH includes obesity and hyper tension. Plan Includes: Stabilize BP, pain management, surgical consult. Patient plans to return home at discharge Primary Source of Transportation: Does the patient need discharge transport arranged?: No (05/01/23 5575) Health Insurance Coverage: [facility] [employer] Managed Medicaid Prescription Coverage: Yes Pharmacy: [facility] in [place]. Mom unaware of which pharmacy takes his plan currently Primary Care Provider: Used to be seen at the [facility] but hasn't been in almost 2 years Prior to Admission: Functional Status: Independent with ADLs Primary Caregiver: Self Support System: Spouse/Significant Other, Parent (Meron Blankenship, mother [phone]. Solange Ireland, mother in law [phone]) Home Care Services: No Durable Medical Equipment: None Living Arrangements: Spouse/significant other, Children Type of Residence: Private residence Steps in home?: Yes, Outside of home, Yes, Inside home Number of steps inside: 15 steps Number of steps outside: 3 steps Medication management: Independent (05/01/231402) Potential discharge needs include: Potential rehab placement Dialysis: None Behavioral Health Services: Behavioral Health Services: No (05/01/231402) Patient expects to be Discharged to: Private residence, (05/01/231402) Additional Information: Patient lives independently and 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 Patient lives with his girlfriend and 7 children. Patient wants to go home at discharge, but his mother is hoping PT/OT recommend rehab. Patient will have transportation provided by family at discharge Patient's Identified Problem/Goal Problem: Ensure acute medical [...] Collaboration with patient, MD, direct care nurse, Cash Surrender Calculator, and other members of the health care team to assure needed interventions completed. 2. Return patient to optimal level of self-care post discharge. 3. Dowel Pin Worker will follow for Discharge Planning - interventions as needed 4. Anticipated level of care at discharge 5. Planned Discharge Disposition Based on a comprehensive family assessment, assistance with instrumental activities of daily livingafter discharge will be provided by the patient's mother. Through the course of our work I determined that the patient's mother possesses the skill and ability to provide and monitor the care of the patient when he or she returns home. The patient's mother has the capacity to provide/monitor/arrange for the care of the patient. Finally, we determined that the patient's mother has the knowledge of available resources and that combining them with their existing resources will suffice to sustain and care for the patient when he or she returns home. The treatment team is aware of this information. All are in agreement with the aftercare plan. Yadira Portillo RN TRO OPTICS ENGINEER * Plan of Care - Shirley Horan RN - 05/01/2023 1:51 PM CST Problem: Activity: Goal: Mobility will improve Outcome: [...] improve to fullest extent possible Outcome: Progressing Problem: Health Behavior: Goal: Understanding [...] Goal: Pain level will decrease Outcome: Progressing Goals: Clinical Goals for the Shift: BP and HR control, pain control, monitor labs TRO OPTICS ENGINEER * ED Procedure Note - Kameron Wadsworth MD - 05/01/2023 12:32 PM ELECTRO OPTICS ENGINEER Associated Order(s): Critical Care Procedure Critical Care Performed by: Kameron Wadsworth MD Authorized by: Kameron Wadsworth MD Critical care provider statement: As reflected in the history, physical exam, orders, notes, and/or MDM, I was personally present while the patient was critically ill and provided critical care services for 40 minutes, excluding timeinvolved in separately billable procedures. Critical care was necessary to treat or prevent imminent or life- threatening deterioration of the following condition(s): aortic dissection/aneurysm and hypertensive crisis Critical care was time spent by me providing the following: continuous telemetry, continuous pulse oximetry, interpretation of bedside monitors, imaging, and arterial/venous lab draws, serial bedside patient exams and serial laboratory checks initiation and active titration of vasoactive medications I provided emergent necessary critical care medicine [...] and discussed management with the admitting team. Kameron Wadsworth MD 05/01/23 1232 TRO OPTICS ENGINEER * ED Procedure Note - Nagi Landa MD - 05/01/2023 7:33 AM ELECTRO OPTICS ENGINEER Associated Order(s): Critical Care Procedure Critical Care Performed by: Nagi Landa MD Authorized by: Kameron Wadsworth MD Critical care provider statement: As reflected [...] initiation and active titration of vasoactive medications I provided emergent necessary critical care medicine [...] and discussed management with the admitting team. Nagi Landa MD 05/01/23 2334 TRO OPTICS ENGINEER * ED Re-evaluation Note - Kameron Wadsworth MD - 05/01/2023 7:28 AM ELECTRO OPTICS ENGINEER ED Re-evaluation Briefly, this is a 32-year-old male with a history of hypertension who is not adherent with medications presenting today as a transfer for a type B aortic dissection. The patient was transferred on NTG gtt (that was all the hospital had) and arrived here hypertensive in the 180s over 110s. The patient was taken off of nitroglycerin and transition to esmolol by the prior team. On my reassessment, the patient is writhing in the stretcher actively vomiting complaining of pain throughout his chest and abdomen. The patient does have good pulsatility on his left radial arterial line with strong pulses in the bilateral lower extremities and no sensory motor deficits. He has no abdominal tendernesson palpation. CT imaging was reviewed by me showing a type B dissection however it appears very close to the ascending aorta. The dissection flap goes throughout the abdomen however appears to terminate just proximal to the iliac bifurcation. My blood pressure goal would be a systolic less than 120 and heart rate goal less than 60, though the lower we can get both of those figures the better - Vascular asks for SBP < 100. We are rapidly up-titrating the nicardipine dose. Kameron Wadsworth MD 05/01/23 0736 [employer]O OPTICS ENGINEER * ED Re-evaluation Note - Faustino Elias MD - 05/01/2023 6:54 AM ELECTRO OPTICS ENGINEER ED Re-evaluation TRANSITION OF CARE: I, Faustino Elias MD, am taking signout from previous team. I have reviewed all pertinent vital signs, allergies, and history available in the chart. Summary: 32 y.o. male hx of htn transferred from OSH for type B dissection accepted by CT surgery. On esmolol and nicardipine, vascular consulted, awaiting reccs Pending: Vascular reccs Dispo: admit ICU Vitals: 05/01/23 1115 BP: Pulse: 78 Resp: 14 Temp: SpO2: 93% ED Course as of 05/01/23 1116 Time: 05/01 456 Comment: Per pre-arrival note: Pre-Arrival Note The patient is coming from [facility] accepted by Dr Granados patient has a Type B dissection . The patients report called to Dr Cisse . The patient has had NitroDrip started as well as Labetalol Drip By: Meron Monterroso MD Time: 05/01 510 Comment: Outside hospital images being uploaded By: Meron Monterroso MD Time: 05/01 510 Comment: Consult placed for cardiothoracic surgery By: Meron Monterroso MD Time: 05/01 556 Comment: A line placed to left wrist. By: Meron Monterroso MD Time: 05/01 628 Comment: Case discussed with radiology as well as vascular services. Likely type b dissection however limited due to single phase study. Vascular will come see the patient. By: Nagi Landa MD Time: 05/01 638 Comment: Teach handoff note: 32-year-old male with past medical history of obesity and hypertension presenting for evaluation ofa type B dissection per outside hospital imaging. Patient was accepted by Dr. Granados, cardiothoracic surgery. Patient currently on an esmolol drip, maxed out, nicardipine (systolic <160 and heart rate as low as he can tolerate, < 100). 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 Consulting services: Vascular surgery (pending their final recs) Pending: CT surgery call them Dispo: ICU By: Lisa Christiansen MD Time: 05/01 700 Comment: Have attempted to contact CTICU by calling directly, via phone consult and via cardiology consult specifying cardiothoracic surgery . Still have not been able to contact that service. By: Meron Monterroso MD Time: 05/01 722 Comment: Patient is nauseous, will try 0.625 of droperidol By: Lisa Christiansen MD Time: 05/01 725 Comment: Vascular saw patient, wanting SBP goal <100, HR 60, type and screen, lactate, and NPO By: Faustino Elias MD Time: 05/01 744 Comment: Spoke with nurse regarding blood pressure goals of systolics between 100 and 110 with heart rate goal of 60 or between 60 and 70 beats per minute By: Lisa Christiansen MD Time: 05/01 923 Comment: Will consult eICU to help with ICU placement By: Lisa Christiansen MD Time: 05/01 938 Comment: Per eICU attending klaudia, going to 82 ICU By: Lisa Christiansen MD Final diagnoses: Dissection of aorta, unspecified portion of aorta (HCC) Hypertension, unspecified type Class 1 obesity with body mass index (BMI) of 30.0 to 30.9 in adult, unspecified obesity type, unspecified whether serious comorbidity present Faustino Elias MD Resident 05/01/23 1116 [employer]O OPT[employer] ENGINEER * ED Procedure Note - Meron Monterroso MD - 05/01/2023 5:56 AM CSTAssociated Order(s): Arterial line Procedure Arterial line Date/Time: 05/01/2023 5:56 AM Performed by: Meron Monterroso MD Authorized by: Nagi Landa MD [place] Protocol: RN Notified of Procedure: yes Indications: Indications: hemodynamic monitoring Pre-procedure details: Skin preparation: Alcohol and Betadine Procedure details: Location: L radial Needle gauge: 20 G Placement technique: Ultrasound guided Ultrasound guidance used for: Pre-procedure marking Number of attempts: 1 Transducer: waveform confirmed Post-procedure details: Post-procedure: Sterile dressing applied and sutured Patient tolerance of procedure: Tolerated well, no immediate complications Meron Monterroso MD Resident 05/01/23 0701 Cosigned by Nagi Landa MD at 05/02/2023 12:02 AM ELECTRO OPTICS ENGINEER TRO OPTICS ENGINEER TRO OPTICS ENGINEER Associated attestation - Nagi Landa MD - 05/02/2023 12:02 AM ELECTRO OPTICS ENGINEER I was present for the grande portions of the procedure: line/catheter insertion and remained immediately available for the remainder of the procedure. * ED Procedure Note - Meron Monterroso MD - 05/01/2023 5:15 AM CSTAssociated Order(s): ECG 12 lead Procedure ECG 12 lead Date/Time: 05/01/2023 5:15 AM Performed by: Meron Monterroso MD Authorized by: Meron Monterroso MD Rate: ECG rate: 80 ECG rate assessment: normal Rhythm: Rhythm: sinus rhythm Ectopy: Ectopy: none QRS: QRS axis: Normal Conduction: Conduction: normal ST segments: ST segments: Abnormal Elevation: V1 and V2 T waves: T waves: inverted Inverted: V3, V4, V5 and V6 Other findings: Other findings: LVH Previous ECG: Previous ECG: Unavailable Interpretation: Interpretation: abnormal Recommended Follow-up: Recommended follow up: cardiac workup Meron Monterroso MD Resident 05/01/23515 Cosigned by Nagi Landa MD at 05/02/2023 12:02 AM ELECTRO OPTICS ENGINEER TRO OPTICS ENGINEER TRO OPTICS ENGINEER Associated attestation - Nagi Landa MD - 05/02/2023 12:02 AM ELECTRO OPTICS ENGINEER I have personally reviewed the tracing and the resident's interpretation. I agree with the findings. * ED Pre-Arrival Note - Gracie Cee RN - 05/01/2023 4:47 AM CST Pre-Arrival Note The patient is coming from [facility] accepted by Dr Granados patient has a Type B dissection . The patients report called to Dr Cisse . The patient has had NitroDrip started as well as Labetalol Drip Gracie Cee RN [employer] ENGINEER documented in this encounter Plan of Treatment Pending Results Name Type Priority Associated Diagnoses Date /Time Type and screen Lab Timed 4:10 AM ELECTRO OPTICS ENGINEER Lactate, whole blood Lab Timed 07/2022 5:10 PM ELECTRO OPTICS ENGINEER TSH reflex to free T4 Lab Routine 09/2022 12:10 AM ELECTRO OPTICS ENGINEER Hepatic function panel Lab Routine 12:37 AM ELECTRO OPTICS ENGINEER Scheduled Orders Name Type Priority Associated Diagnoses Orde r Schedule Lactate, whole blood Lab Timed Once for 1 Occurrences starting 05/01/2023 until 05/01/2023 TSH reflex to free T4 Lab Routine Onc e for 1 Occurrences starting 05/03/2023 until 05/03/2023 Hepatic function panel Lab Routine On ce for 1 Occurrences starting 05/10/2023 until 05/10/2023 Scheduled Referrals Name Type Priority Associated Diagnoses Order Schedule Ambulatory referral to Urology Outpatient Referral Routine Urinary retention Expected: 05/30/2023 (Approximate), Expires: 05/16/2024 documented as of this encounter Procedures Procedure Name Priority Date/Time Associated Diagnosis Comments CTA CHEST ABDOMEN PELVIS Pending Discharge 05/16/2023 10:28 AM ELECTRO OPTICS ENGINEER EGFR Routine 05/16/2023 4:03 AM ELECTRO OPTICS ENGINEER CBC WITHOUT DIFFERENTIAL Routine 05/16/2023 4:03 AM ELECTRO OPTICS ENGINEER PHOSPHORUS Routine 05/16/2023 4:03 AM ELECTRO OPTICS ENGINEER MAGNESIUM Routine 05/16/2023 4:03 AM ELECTRO OPTICS ENGINEER BASIC METABOLIC PANEL Routine 05/16/2023 4:03 AM ELECTRO OPTICS ENGINEER TYPE AND SCREEN Routine 05/15/2023 5:26 AM ELECTRO OPTICS ENGINEER CBC WITHOUT DIFFERENTIAL STAT 05/15/2023 5:12 AM ELECTRO OPTICS ENGINEER EGFR Routine 05/15/2023 4:36 AM ELECTRO OPTICS ENGINEER CBC WITHOUT DIFFERENTIAL Routine 05/15/2023 4:36 AM ELECTRO OPTICS ENGINEER PHOSPHORUS Routine 05/15/2023 4:36 AM ELECTRO OPTICS ENGINEER MAGNESIUM Routine 05/15/2023 4:36 AM ELECTRO OPTICS ENGINEER BASIC METABOLIC PANEL Routine 05/15/2023 4:36 AM ELECTRO OPTICS ENGINEER EGFR Routine 05/14/2023 6:01 AM ELECTRO OPTICS ENGINEER CBC WITHOUT DIFFERENTIAL Routine 05/14/2023 6:01 AM ELECTRO OPTICS ENGINEER PHOSPHORUS Routine 05/14/2023 6:01 AM ELECTRO OPTICS ENGINEER MAGNESIUM Routine 05/14/2023 6:01 AM ELECTRO OPTICS ENGINEER BASIC METABOLIC PANEL Routine 05/14/2023 6:01 AM ELECTRO OPTICS ENGINEER XR CHEST 1 VIEW IP Routine 05/13/2023 7:10 PM ELECTRO OPTICS ENGINEER CRITICAL CARE Routine 05/13/2023 12:56 PM ELECTRO OPTICS ENGINEER Dissection of thoracoabdominal aorta (CMS/HCC) (HCC) EGFR Routine 05/13/2023 12:10 AM ELECTRO OPTICS ENGINEER APTT Routine 05/13/2023 12:10 AM ELECTRO OPTICS ENGINEER PROTIME-INR Routine 05/13/2023 12:10 AM ELECTRO OPTICS ENGINEER CBC WITHOUT DIFFERENTIAL Routine 05/13/2023 12:10 AM ELECTRO OPTICS ENGINEER TYPE AND SCREEN Timed 05/13/2023 12:10 AM ELECTRO OPTICS ENGINEER PHOSPHORUS Routine 05/13/2023 12:10 AM ELECTRO OPTICS ENGINEER MAGNESIUM Routine 05/13/2023 12:10 AM ELECTRO OPTICS ENGINEER BASIC METABOLIC PANEL Routine 05/13/2023 12:10 AM ELECTRO OPTICS ENGINEER XR CHEST 1 VIEW IP Routine 05/12/2023 7:27 PM ELECTRO OPTICS ENGINEER CRITICAL CARE Routine 05/12/2023 4:16 PM ELECTRO OPTICS ENGINEER Dissection of thoracoabdominal aorta (CMS/HCC) (HCC) CBC WITHOUT DIFFERENTIAL Routine 05/12/2023 1:58 PM ELECTRO OPTICS ENGINEER TRANSFUSE RED BLOOD CELLS Timed 05/12/2023 8:58 AM ELECTRO OPTICS ENGINEER POCT GLUCOSE DEVICE Routine 05/12/2023 8 :50 AM ELECTRO OPTICS ENGINEER PREPARE RBC Timed 05/12/2023 7:40 AM ELECTRO OPTICS ENGINEER POTASSIUM, WHOLE BLOOD STAT 05/12/2023 12:12 AM ELECTRO OPTICS ENGINEER EGFR Routine 05/12/2023 12:12 AM ELECTRO OPTICS ENGINEER APTT Routine 05/12/2023 12:12 AM ELECTRO OPTICS ENGINEER PROTIME-INR Routine 05/12/2023 12:12 AM ELECTRO OPTICS ENGINEER CBC WITHOUT DIFFERENTIAL Routine 05/12/2023 12:12 AM ELECTRO OPTICS ENGINEER TRIGLYCERIDES Timed 05/12/2023 12:12 AM ELECTRO OPTICS ENGINEER PHOSPHORUS Routine 05/12/2023 12:12 AM ELECTRO OPTICS ENGINEER MAGNESIUM Routine 05/12/2023 12:12 AM ELECTRO OPTICS ENGINEER BASIC METABOLIC PANEL Routine 05/12/2023 12:12 AM ELECTRO OPTICS ENGINEER XR CHEST 1 VIEW IP Routine 2023 8:01 PM ELECTRO OPTICS ENGINEER CRITICAL CARE Routine 2023 4:16 PM ELECTRO OPTICS ENGINEER Dissection of thoracoabdominal aorta (CMS/HCC) (HCC) CTA CHEST ABDOMEN PELVIS ED Urgent/IP Urgent 2023 11:16 AM ELECTRO OPTICS ENGINEER POTASSIUM, WHOLE BLOOD STAT 2023 12:14 AM ELECTRO OPTICS ENGINEER EGFR Routine 2023 12:14 AM ELECTRO OPTICS ENGINEER APTT Routine 2023 12:14 AM ELECTRO OPTICS ENGINEER PROTIME-INR Routine 2023 12:14 AM ELECTRO OPTICS ENGINEER CBC WITHOUT DIFFERENTIAL Routine 2023 12:14 AM ELECTRO OPTICS ENGINEER PHOSPHORUS Routine 2023 12:14 AM ELECTRO OPTICS ENGINEER MAGNESIUM Routine 2023 12:14 AM ELECTRO OPTICS ENGINEER BLOOD GAS, ARTERIAL STAT 2023 12:14 AM ELECTRO OPTICS ENGINEER BASIC METABOLIC PANEL Routine 2023 12:14 AM ELECTRO OPTICS ENGINEER XR CHEST 1 VIEW IP Routine 05/10/2023 9:50 PM ELECTRO OPTICS ENGINEER ECG 12-LEAD STAT 05/10/2023 6:19 PM ELECTRO OPTICS ENGINEER LIDOCAINE LEVEL Routine 05/10/2023 4:59 PM ELECTRO OPTICS ENGINEER CRITICAL CARE Routine 05/10/2023 4:14 PM ELECTRO OPTICS ENGINEER Dissection of thoracoabdominal aorta (CMS/HCC) (HCC) BLOOD CULTURE Routine 05/10/2023 12:57 PM ELECTRO OPTICS ENGINEER BLOOD CULTURE Routine 05/10/2023 12:57 PM ELECTRO OPTICS ENGINEER LACTATE Routine 05/10/2023 12:37 AM ELECTRO OPTICS ENGINEER POTASSIUM, WHOLE BLOOD STAT 05/10/2023 12:37 AM ELECTRO OPTICS ENGINEER EGFR Routine 05/10/2023 12:37 AM ELECTRO OPTICS ENGINEER APTT Routine 05/10/2023 12:37 AM ELECTRO OPTICS ENGINEER PROTIME-INR Routine 05/10/2023 12:37 AM ELECTRO OPTICS ENGINEER CBC WITHOUT DIFFERENTIAL Routine 05/10/2023 12:37 AM ELECTRO OPTICS ENGINEER TYPE AND SCREEN Timed 05/10/2023 12:37 AM ELECTRO OPTICS ENGINEER PHOSPHORUS Routine 05/10/2023 12:37 AM ELECTRO OPTICS ENGINEER MAGNESIUM Routine 05/10/2023 12:37 AM ELECTRO OPTICS ENGINEER BLOOD GAS, ARTERIAL STAT 05/10/2023 12:37 AM ELECTRO OPTICS ENGINEER HEPATIC FUNCTION PANEL Routine 05/10/2023 12:37 AM ELECTRO OPTICS ENGINEER BASIC METABOLIC PANEL Routine 05/10/2023 12:37 AM ELECTRO OPTICS ENGINEER POCT GLUCOSE DEVICE Routine 05/10/2023 12:16 AM ELECTRO OPTICS ENGINEER OXYHEMOGLOBIN, CENTRAL VENOUS Routine 05/09/2023 11:35 PM ELECTRO OPTICS ENGINEER XR CHEST 1 VIEW IP Routine 05/09/2023 9:29 PM ELECTRO OPTICS ENGINEER POTASSIUM, WHOLE BLOOD STAT 05/09/2023 8:16 PM ELECTRO OPTICS ENGINEER LIDOCAINE LEVEL Routine 05/09/2023 6:20 PM ELECTRO OPTICS ENGINEER CRITICAL CARE Routine 05/09/2023 3:58 PM ELECTRO OPTICS ENGINEER Dissection of thoracoabdominal aorta (CMS/HCC) (HCC) POTASSIUM, WHOLE BLOOD STAT 05/09/2023 12:54 PM ELECTRO OPTICS ENGINEER LIPASE Routine 05/09/2023 12:54 PM ELECTRO OPTICS ENGINEER HEPATIC FUNCTION PANEL Routine 05/09/2023 12:54 PM ELECTRO OPTICS ENGINEER US VEIN DUPLEX LOWER EXTREMITY BILATERAL COMPLETE ED Urgent/IP Urgent 05/09/2023 11:23 AM ELECTRO OPTICS ENGINEER ECG 12-LEAD Routine 05/09/2023 9:22 AM ELECTRO OPTICS ENGINEER POTASSIUM, WHOLE BLOOD STAT 05/09/2023 8:04 AM ELECTRO OPTICS ENGINEER POC BLOOD GAS AND CHEMISTRIES, ARTERIAL Routine 05/09/2023 6:22 AM ELECTRO OPTICS ENGINEER POTASSIUM, WHOLE BLOOD STAT 05/09/2023 12:36 AM ELECTRO OPTICS ENGINEER BLOOD GAS, ARTERIAL STAT 05/09/2023 12:36 AM ELECTRO OPTICS ENGINEER EGFR Routine 05/09/2023 12:35 AM ELECTRO OPTICS ENGINEER APTT Routine 05/09/2023 12:35 AM ELECTRO OPTICS ENGINEER PROTIME-INR Routine 05/09/2023 12:35 AM ELECTRO OPTICS ENGINEER CBC WITHOUT DIFFERENTIAL Routine 05/09/2023 12:35 AM ELECTRO OPTICS ENGINEER TRIGLYCERIDES Timed 05/09/2023 12:35 AM ELECTRO OPTICS ENGINEER PHOSPHORUS Routine 05/09/2023 12:35 AM ELECTRO OPTICS ENGINEER MAGNESIUM Routine 05/09/2023 12:35 AM ELECTRO OPTICS ENGINEER BASIC METABOLIC PANEL Routine 05/09/2023 12:35 AM ELECTRO OPTICS ENGINEER XR CHEST 1 VIEW IP Routine 05/08/2023 7:59 PM ELECTRO OPTICS ENGINEER POC BLOOD GAS AND CHEMISTRIES, ARTERIAL Routine 05/08/2023 7:25 PM ELECTRO OPTICS ENGINEER POTASSIUM, WHOLE BLOOD STAT 05/08/2023 5:39 PM ELECTRO OPTICS ENGINEER LIDOCAINE LEVEL Routine 05/08/2023 5:39 PM ELECTRO OPTICS ENGINEER CRITICAL CARE Routine 05/08/2023 2:53 PM ELECTRO OPTICS ENGINEER Dissection of thoracoabdominal aorta (CMS/HCC) (HCC) POTASSIUM, WHOLE BLOOD STAT 05/08/2023 11:44 AM ELECTRO OPTICS ENGINEER POTASSIUM, WHOLE BLOOD STAT 05/08/2023 8:02 AM ELECTRO OPTICS ENGINEER BLOOD GAS, ARTERIAL STAT 05/08/2023 8 :02 AM ELECTRO OPTICS ENGINEER POTASSIUM, WHOLE BLOOD STAT 05/08/2023 1:08 AM ELECTRO OPTICS ENGINEER EGFR Routine 05/08/2023 1:08 AM ELECTRO OPTICS ENGINEER APTT Routine 05/08/2023 1:08 AM ELECTRO OPTICS ENGINEER PROTIME-INR Routine 05/08/2023 1:08 AM ELECTRO OPTICS ENGINEER CBC WITHOUT DIFFERENTIAL Routine 05/08/2023 1:08 AM ELECTRO OPTICS ENGINEER PHOSPHORUS Routine 05/08/2023 1:08 AM ELECTRO OPTICS ENGINEER MAGNESIUM Routine 05/08/2023 1:08 AM ELECTRO OPTICS ENGINEER BLOOD GAS, ARTERIAL STAT 05/08/2023 1 :08 AM ELECTRO OPTICS ENGINEER BASIC METABOLIC PANEL Routine 05/08/2023 1:08 AM ELECTRO OPTICS ENGINEER POC BLOOD GAS AND CHEMISTRIES, ARTERIAL Routine 05/07/2023 8:40 PM ELECTRO OPTICS ENGINEER TROPONIN I HIGH-SENSITIVITY 2-HOUR Timed 05/07/2023 8:36 PM ELECTRO OPTICS ENGINEER XR CHEST 1 VIEW IP Routine 05/07/2023 8:26 PM ELECTRO OPTICS ENGINEER ECG 12-LEAD STAT 05/07/2023 6:46 PM ELECTRO OPTICS ENGINEER TROPONIN I HIGH-SENSITIVITY SERIES (BASELINE, 2HR, 4HR, 6HR) Routine 05/07/2023 6:15 PM ELECTRO OPTICS ENGINEER POTASSIUM, WHOLE BLOOD STAT 05/07/2023 5:57 PM ELECTRO OPTICS ENGINEER BLOOD GAS, ARTERIAL STAT 05/07/2023 5 :57 PM ELECTRO OPTICS ENGINEER XR CHEST 1 VIEW ED Urgent/IP Urgent 05/07/2023 4:07 PM ELECTRO OPTICS ENGINEER POC BLOOD GAS AND CHEMISTRIES, ARTERIAL Routine 05/07/2023 3:57 PM ELECTRO OPTICS ENGINEER CRITICAL CARE Routine 05/07/2023 2:55 PM ELECTRO OPTICS ENGINEER Dissection of thoracoabdominal aorta (CMS/HCC) (HCC) POTASSIUM, WHOLE BLOOD STAT 05/07/2023 2:42 PM ELECTRO OPTICS ENGINEER BLOOD GAS, ARTERIAL STAT 05/07/2023 2 :42 PM ELECTRO OPTICS ENGINEER AL ARTL CATHJ/CANNULJ MNTR/TRANSFUSION SPX PRQ Routine 05/07/2023 1:42 PM ELECTRO OPTICS ENGINEER Dissection of thoracoabdominal aorta (CMS/HCC) (HCC) APTT STAT 05/07/2023 10:37 AM ELECTRO OPTICS ENGINEER PROTIME-INR STAT 05/07/2023 10:37 AM ELECTRO OPTICS ENGINEER BLOOD GAS, ARTERIAL STAT 05/07/2023 6 :13 AM ELECTRO OPTICS ENGINEER POTASSIUM, WHOLE BLOOD STAT 05/07/2023 5:56 AM ELECTRO OPTICS ENGINEER POTASSIUM, WHOLE BLOOD STAT 05/07/2023 3:58 AM ELECTRO OPTICS ENGINEER AL ARTL CATHJ/CANNULJ MNTR/TRANSFUSION SPX PRQ Routine 05/07/2023 2:50 AM ELECTRO OPTICS ENGINEER Dissection of aorta, unspecified portion of aorta (HCC) LACTATE Routine 05/07/2023 12:35 AM ELECTRO OPTICS ENGINEER POTASSIUM, WHOLE BLOOD STAT 05/07/2023 12:35 AM ELECTRO OPTICS ENGINEER EGFR Routine 05/07/2023 12:35 AM ELECTRO OPTICS ENGINEER CBC WITHOUT DIFFERENTIAL Routine 05/07/2023 12:35 AM ELECTRO OPTICS ENGINEER TYPE AND SCREEN Timed 05/07/2023 12:35 AM ELECTRO OPTICS ENGINEER TRIGLYCERIDES Routine 05/07/2023 12:35 AM ELECTRO OPTICS ENGINEER PHOSPHORUS Routine 05/07/2023 12:35 AM ELECTRO OPTICS ENGINEER MAGNESIUM Routine 05/07/2023 12:35 AM ELECTRO OPTICS ENGINEER BLOOD GAS, ARTERIAL STAT 05/07/2023 12:35 AM ELECTRO OPTICS ENGINEER BASIC METABOLIC PANEL Routine 05/07/2023 12:35 AM ELECTRO OPTICS ENGINEER MRI SPINE TOTAL COMPLETE WO CONTRAST ED Urgent/IP Urgent 05/07/2023 12:10 AM ELECTRO OPTICS ENGINEER XR CHEST 1 VIEW ED Urgent/IP Urgent 05/06/2023 10:08 PM ELECTRO OPTICS ENGINEER INTUBATION Routine 05/06/2023 9:36 PM ELECTRO OPTICS ENGINEER Dissection of aorta, unspecified portion of aorta (HCC) XR CHEST 1 VIEW IP Routine 05/06/2023 7:41 PM ELECTRO OPTICS ENGINEER POTASSIUM, WHOLE BLOOD STAT 05/06/2023 7:22 PM ELECTRO OPTICS ENGINEER BLOOD GAS, ARTERIAL STAT 05/06/2023 7 :22 PM ELECTRO OPTICS ENGINEER POTASSIUM, WHOLE BLOOD STAT 05/06/2023 4:35 PM ELECTRO OPTICS ENGINEER BLOOD GAS, ARTERIAL STAT 05/06/2023 4 :35 PM ELECTRO OPTICS ENGINEER POTASSIUM, WHOLE BLOOD STAT 05/06/2023 10:30 AM ELECTRO OPTICS ENGINEER BLOOD GAS, ARTERIAL STAT 05/06/2023 10:30 AM ELECTRO OPTICS ENGINEER POTASSIUM, WHOLE BLOOD STAT 05/06/2023 6:07 AM ELECTRO OPTICS ENGINEER POC BLOOD GAS AND CHEMISTRIES, ARTERIAL Routine 05/06/2023 1:32 AM ELECTRO OPTICS ENGINEER TROPONIN I HIGH-SENSITIVITY 6-HOUR Timed 05/06/2023 1:28 AM ELECTRO OPTICS ENGINEER CBC WITHOUT DIFFERENTIAL Routine 05/06/2023 1:28 AM ELECTRO OPTICS ENGINEER TRANSFUSE PLATELETS Timed 05/05/2023 11:38 PM ELECTRO OPTICS ENGINEER TRANSFUSE PLATELETS Timed 05/05/2023 11:29 PM ELECTRO OPTICS ENGINEER TROPONIN I HIGH-SENSITIVITY 2-HOUR Timed 05/05/2023 9:15 PM ELECTRO OPTICS ENGINEER POC BLOOD GAS AND CHEMISTRIES, ARTERIAL Routine 05/05/2023 9:15 PM ELECTRO OPTICS ENGINEER TRANSFUSE RED BLOOD CELLS Timed 05/05/2023 8:20 PM ELECTRO OPTICS ENGINEER PREPARE PLATELETS Timed 05/05/2023 8:1 7 PM ELECTRO OPTICS ENGINEER APTT STAT 05/05/2023 8:14 PM ELECTRO OPTICS ENGINEER PROTIME-INR STAT 05/05/2023 8:14 PM ELECTRO OPTICS ENGINEER PREPARE RBC Timed 05/05/2023 7:56 PM ELECTRO OPTICS ENGINEER XR CHEST 1 VIEW IP Routine 05/05/2023 7:43 PM ELECTRO OPTICS ENGINEER TROPONIN I HIGH-SENSITIVITY SERIES (BASELINE, 2HR, 4HR, 6HR) Routine 05/05/2023 7:22 PM ELECTRO OPTICS ENGINEER POC BLOOD GAS AND CHEMISTRIES, ARTERIAL Routine 05/05/2023 7:22 PM ELECTRO OPTICS ENGINEER ECG 12-LEAD STAT 05/05/2023 6:56 PM ELECTRO OPTICS ENGINEER CTA CHEST ABDOMEN PELVIS Critical/Life-T hreatening 05/05/2023 6:28 PM ELECTRO OPTICS ENGINEER TRANSTHORACIC ECHO (TTE) LIMITED/FOLLOW UP WO DOPPLER/CF WO CONTRAST W BUBBLE Routine 05/05/2023 4:50 PM ELECTRO OPTICS ENGINEER CRITICAL CARE Routine 05/05/2023 1:24 PM ELECTRO OPTICS ENGINEER Hypertension, unspecified type PNEUMONIA PCR Routine 05/05/2023 11:27 AM ELECTRO OPTICS ENGINEER PNEUMONIA PCR WITH AEROBIC CULTURE AND GRAM STAIN Routine 05/05/2023 11:27 AM ELECTRO OPTICS ENGINEER EXTUBATION Routine 05/05/2023 10:41 AM ELECTRO OPTICS ENGINEER AL DIAGNOSTIC LUMBAR SPINAL PUNCTURE Routine 05/05/2023 10:05 AM ELECTRO OPTICS ENGINEER Dissection of aorta, unspecified portion of aorta (HCC) LACTATE Routine 05/05/2023 8:21 AM ELECTRO OPTICS ENGINEER BLOOD GAS, ARTERIAL STAT 05/05/2023 8 :21 AM ELECTRO OPTICS ENGINEER POTASSIUM, WHOLE BLOOD STAT 05/05/2023 4:51 AM ELECTRO OPTICS ENGINEER BLOOD GAS, ARTERIAL STAT 05/05/2023 4 :51 AM ELECTRO OPTICS ENGINEER EGFR Routine 05/05/2023 12:12 AM ELECTRO OPTICS ENGINEER CBC WITHOUT DIFFERENTIAL Routine 05/05/2023 12:12 AM ELECTRO OPTICS ENGINEER PHOSPHORUS Routine 05/05/2023 12:12 AM ELECTRO OPTICS ENGINEER MAGNESIUM Routine 05/05/2023 12:12 AM ELECTRO OPTICS ENGINEER BASIC METABOLIC PANEL Routine 05/05/2023 12:12 AM ELECTRO OPTICS ENGINEER POTASSIUM, WHOLE BLOOD STAT 05/04/2023 10:30 PM ELECTRO OPTICS ENGINEER TRIGLYCERIDES Timed 05/04/2023 10:30 PM ELECTRO OPTICS ENGINEER BLOOD GAS, ARTERIAL STAT 05/04/2023 10:30 PM ELECTRO OPTICS ENGINEER XR CHEST 1 VIEW IP Routine 05/04/2023 8:58 PM ELECTRO OPTICS ENGINEER POTASSIUM, WHOLE BLOOD STAT 05/04/2023 6:31 PM ELECTRO OPTICS ENGINEER CRITICAL CARE Routine 05/04/2023 3:00 PM ELECTRO OPTICS ENGINEER Hypertension, unspecified type POCT GLUCOSE DEVICE Routine 05/04/2023 1 :42 PM ELECTRO OPTICS ENGINEER RT COMMUNICATION Routine 05/04/2023 1:10 PM ELECTRO OPTICS ENGINEER POTASSIUM, WHOLE BLOOD STAT 05/04/2023 11:27 AM ELECTRO OPTICS ENGINEER TYPE AND SCREEN Timed 05/04/2023 11:23 AM ELECTRO OPTICS ENGINEER BLOOD GAS, ARTERIAL STAT 05/04/2023 11:23 AM ELECTRO OPTICS ENGINEER POCT GLUCOSE DEVICE Routine 05/04/2023 7 :48 AM ELECTRO OPTICS ENGINEER POC BLOOD GAS AND CHEMISTRIES, ARTERIAL Routine 05/04/2023 3:03 AM ELECTRO OPTICS ENGINEER URINALYSIS AND REFLEX TO MICROSCOPIC Routine 05/04/2023 2:14 AM ELECTRO OPTICS ENGINEER URINALYSIS, MICROSCOPIC ONLY Routine 05/04/2023 2:14 AM ELECTRO OPTICS ENGINEER EGFR Routine 05/04/2023 1:20 AM ELECTRO OPTICS ENGINEER BLOOD CULTURE Routine 05/04/2023 1:20 AM ELECTRO OPTICS ENGINEER BLOOD CULTURE Routine 05/04/2023 1:20 AM ELECTRO OPTICS ENGINEER CBC WITHOUT DIFFERENTIAL Routine 05/04/2023 1:20 AM ELECTRO OPTICS ENGINEER TRIGLYCERIDES Routine 05/04/2023 1:20 AM ELECTRO OPTICS ENGINEER PHOSPHORUS Routine 05/04/2023 1:20 AM ELECTRO OPTICS ENGINEER MAGNESIUM Routine 05/04/2023 1:20 AM ELECTRO OPTICS ENGINEER BLOOD GAS, ARTERIAL STAT 05/04/2023 1 :20 AM ELECTRO OPTICS ENGINEER BASIC METABOLIC PANEL Routine 05/04/2023 1:20 AM ELECTRO OPTICS ENGINEER XR CHEST 1 VIEW IP Routine 05/03/2023 10:05 PM ELECTRO OPTICS ENGINEER AL INSJ NON-TUNNELED CENTRAL VENOUS CATH AGE 7 YR/> Routine 05/03/2023 9:57 PM ELECTRO OPTICS ENGINEER Dissection of aorta, unspecified portion of aorta (HCC) BLOOD GAS, ARTERIAL STAT 05/03/2023 8 :32 PM ELECTRO OPTICS ENGINEER POTASSIUM, WHOLE BLOOD STAT 05/03/2023 5:50 PM ELECTRO OPTICS ENGINEER BLOOD GAS, ARTERIAL STAT 05/03/2023 5 :50 PM ELECTRO OPTICS ENGINEER XR CHEST 1 VIEW IP Routine 05/03/2023 2:54 PM ELECTRO OPTICS ENGINEER CRITICAL CARE Routine 05/03/2023 2:29 PM ELECTRO OPTICS ENGINEER Hypertension, unspecified type POC BLOOD GAS AND CHEMISTRIES, ARTERIAL Routine 05/03/2023 2:09 PM [employer] TRIGLYCERIDES Routine 05/03/2023 1:12 PM [employer] ENG[employer]ER POC BLOOD GAS AND CHEMISTRIES, ARTERIAL Routine 05/03/2023 11:07 AM [employer] ENG[employer]ER POC BLOOD GAS AND CHEMISTRIES, ARTERIAL Routine 05/03/2023 3:28 AM [employer] ENG[employer]ER LACTATE Routine 05/03/2023 2:08 AM [employer] ENG[employer]ER BLOOD GAS, ARTERIAL Routine 05/03/2023 2 :08 AM [employer] ENG[employer]ER LACTATE STAT 05/03/2023 12:10 AM [employer] ENG[employer]ER EGFR Routine 05/03/2023 12:10 AM [employer] ENGINEER THYROID FUNCTION CASCADE Routine 05/03/2023 12:10 AM [employer] ENG[employer]ER FIBRINOGEN Routine 05/03/2023 12:10 AM [employer] ENG[employer]ER CBC WITHOUT DIFFERENTIAL Routine 05/03/2023 12:10 AM ELECTRO OPTICS ENGINEER PHOSPHORUS Routine 05/03/2023 12:10 AM ELECTRO OPTICS ENGINEER MAGNESIUM Routine 05/03/2023 12:10 AM ELECTRO OPTICS ENGINEER BLOOD GAS, ARTERIAL STAT 05/03/2023 12:10 AM ELECTRO OPTICS ENGINEER BASIC METABOLIC PANEL Routine 05/03/2023 12:10 AM ELECTRO OPTICS ENGINEER POC BLOOD GAS AND CHEMISTRIES, ARTERIAL Routine 05/02/2023 11:16 PM ELECTRO OPTICS ENGINEER XR CHEST 1 VIEW ED Urgent/IP Urgent 05/02/2023 10:54 PM ELECTRO OPTICS ENGINEER POC BLOOD GAS AND CHEMISTRIES, ARTERIAL Routine 05/02/2023 10:13 PM ELECTRO OPTICS ENGINEER EGFR STAT 05/02/2023 9:55 PM ELECTRO OPTICS ENGINEER CALCIUM, IONIZED STAT 05/02/2023 9:55 PM ELECTRO OPTICS ENGINEER PHOSPHORUS STAT 05/02/2023 9:55 PM ELECTRO OPTICS ENGINEER MAGNESIUM STAT 05/02/2023 9:55 PM ELECTRO OPTICS ENGINEER BASIC METABOLIC PANEL STAT 05/02/2023 9:55 PM ELECTRO OPTICS ENGINEER CBC WITHOUT DIFFERENTIAL STAT 05/02/2023 9:33 PM ELECTRO OPTICS ENGINEER POC BLOOD GAS AND CHEMISTRIES, ARTERIAL Routine 05/02/2023 9:29 PM ELECTRO OPTICS ENGINEER CV HYBRID ROOM (DEFAULT ORDERABLE) Routine 05/02/2023 9:20 PM ELECTRO OPTICS ENGINEER Dissection of thoracoabdominal aorta (CMS/HCC) (HCC) POCT ACTIVATED CLOTTING TIME, LOW RANGE Routine 05/02/2023 7:26 PM ELECTRO OPTICS ENGINEER POCT ACTIVATED CLOTTING TIME, LOW RANGE Routine 05/02/2023 7:01 PM ELECTRO OPTICS ENGINEER POCT ACTIVATED CLOTTING TIME, LOW RANGE Routine 05/02/2023 6:27 PM ELECTRO OPTICS ENGINEER POCT ACTIVATED CLOTTING TIME, LOW RANGE Routine 05/02/2023 6:02 PM ELECTRO OPTICS ENGINEER CRITICAL CARE Routine 05/02/2023 5:26 PM ELECTRO OPTICS ENGINEER Dissection of aorta, unspecified portion of aorta (HCC) CAUTERIZATION NASAL SEPTUM 05/02/2023 4:36 PM ELECTRO OPTICS ENGINEER Dissection of thoracoabdominal aorta (CMS/HCC) (HCC) PLACEMENT STENT - SUBCLAVIAN ARTERY - HYBRID ROOM 05/02/2023 4:36 PM ELECTRO OPTICS ENGINEER Dissection of thoracoabdominal aorta (CMS/HCC) (HCC) LACTATE Timed 05/02/2023 4:00 PM ELECTRO OPTICS ENGINEER EGFR Timed 05/02/2023 4:00 PM ELECTRO OPTICS ENGINEER CBC WITHOUT DIFFERENTIAL Timed 05/02/2023 4:00 PM ELECTRO OPTICS ENGINEER COMPREHENSIVE METABOLIC PANEL Timed 05/02/2023 4:00 PM ELECTRO OPTICS ENGINEER TRANSTHORACIC ECHO (TTE) COMPLETE W DOPPLER/CF W CONTRAST STAT 05/02/2023 12:40 PM ELECTRO OPTICS ENGINEER PREPARE PLATELETS Timed 05/02/2023 10:34 AM ELECTRO OPTICS ENGINEER PREPARE RBC Timed 05/02/2023 10:33 AM ELECTRO OPTICS ENGINEER LACTATE Timed 05/02/2023 10:12 AM ELECTRO OPTICS ENGINEER EGFR Timed 05/02/2023 10:12 AM ELECTRO OPTICS ENGINEER CBC WITHOUT DIFFERENTIAL Timed 05/02/2023 10:12 AM ELECTRO OPTICS ENGINEER COMPREHENSIVE METABOLIC PANEL Timed 05/02/2023 10:12 AM ELECTRO OPTICS ENGINEER CTA CHEST ABDOMINAL AORTA AND BILATERAL ILIOFEMORAL Critical/Life-T hreatening 05/02/2023 9:47 AM ELECTRO OPTICS ENGINEER POCT GLUCOSE DEVICE Routine 05/02/2023 4 :16 AM ELECTRO OPTICS ENGINEER LACTATE Timed 05/02/2023 4:10 AM ELECTRO OPTICS ENGINEER EGFR Timed 05/02/2023 4:10 AM ELECTRO OPTICS ENGINEER CALCIUM, IONIZED Routine 05/02/2023 4:10 AM ELECTRO OPTICS ENGINEER PROTIME-INR Routine 05/02/2023 4:10 AM ELECTRO OPTICS ENGINEER CBC WITHOUT DIFFERENTIAL Timed 05/02/2023 4:10 AM ELECTRO OPTICS ENGINEER COMPREHENSIVE METABOLIC PANEL Timed 05/02/2023 4:10 AM ELECTRO OPTICS ENGINEER LACTATE Timed 05/01/2023 11:52 PM ELECTRO OPTICS ENGINEER EGFR Timed 05/01/2023 11:52 PM ELECTRO OPTICS ENGINEER CBC WITHOUT DIFFERENTIAL Timed 05/01/2023 11:52 PM ELECTRO OPTICS ENGINEER COMPREHENSIVE METABOLIC PANEL Timed 05/01/2023 11:52 PM ELECTRO OPTICS ENGINEER POC BLOOD GAS AND CHEMISTRIES, ARTERIAL Routine 05/01/2023 11:03 PM ELECTRO OPTICS ENGINEER POTASSIUM, WHOLE BLOOD Routine 05/01/2023 7:28 PM ELECTRO OPTICS ENGINEER HEPATIC FUNCTION PANEL Routine 05/01/2023 7:28 PM ELECTRO OPTICS ENGINEER POCT GLUCOSE DEVICE Routine 05/01/2023 7 :27 PM ELECTRO OPTICS ENGINEER XR CHEST 1 VIEW IP Routine 05/01/2023 6:41 PM ELECTRO OPTICS ENGINEER EGFR Timed 05/01/2023 5:50 PM ELECTRO OPTICS ENGINEER COMPREHENSIVE METABOLIC PANEL Timed 05/01/2023 5:50 PM ELECTRO OPTICS ENGINEER POCT GLUCOSE DEVICE Routine 05/01/2023 5 :10 PM ELECTRO OPTICS ENGINEER LACTATE, WHOLE BLOOD Timed 05/01/2023 5:10 PM ELECTRO OPTICS ENGINEER CBC WITHOUT DIFFERENTIAL Timed 05/01/2023 5:10 PM ELECTRO OPTICS ENGINEER SEPSIS LACTATE WITH REFLEX Timed 05/01/2023 1:18 PM ELECTRO OPTICS ENGINEER AL CRITICAL CARE ILL/INJURED PATIENT INIT 30-74 MIN Routine 05/01/2023 12:32 PM ELECTRO OPTICS ENGINEER TROPONIN I HIGH-SENSITIVITY Routine 05/01/2023 11:40 AM ELECTRO OPTICS ENGINEER POCT GLUCOSE DEVICE Routine 05/01/2023 11:40 AM ELECTRO OPTICS ENGINEER BLOOD GAS, ARTERIAL STAT 05/01/2023 11:40 AM ELECTRO OPTICS ENGINEER CREATINE KINASE (CK), TOTAL STAT 05/01/2023 11:40 AM ELECTRO OPTICS ENGINEER SEPSIS LACTATE WITH REFLEX Timed 05/01/2023 10:15 AM ELECTRO OPTICS ENGINEER LACTATE Timed 05/01/2023 10:15 AM ELECTRO OPTICS ENGINEER EGFR Timed 05/01/2023 10:15 AM ELECTRO OPTICS ENGINEER CBC WITHOUT DIFFERENTIAL Timed 05/01/2023 10:15 AM ELECTRO OPTICS ENGINEER COMPREHENSIVE METABOLIC PANEL Timed 05/01/2023 10:15 AM ELECTRO OPTICS ENGINEER SEPSIS LACTATE WITH REFLEX STAT 05/01/2023 8:13 AM ELECTRO OPTICS ENGINEER B CHECK SAMPLE STAT 05/01/2023 8:13 AM ELECTRO OPTICS ENGINEER TYPE AND SCREEN STAT 05/01/2023 7:52 AM ELECTRO OPTICS ENGINEER AL CRITICAL CARE ILL/INJURED PATIENT INIT 30-74 MIN Routine 05/01/2023 7:[address] BODY OUTSIDE CONSULT Routine 05/01/2023 6:16 AM ELECTRO OPTICS ENGINEER XR TRANSFER OF OUTSIDE FILMS Routine 05/01/2023 6:[address] [address] BODY OUTSIDE CONSULT Routine 05/01/2023 6:01 AM ELECTRO OPTICS ENGINEER AL ARTL CATHJ/CANNULJ MNTR/TRANSFUSION SPX PRQ Routine 05/01/2023 5:56 AM ELECTRO OPTICS ENGINEER FENTANYL CONFIRMATION, MS URINE STAT 05/01/2023 5:19 AM ELECTRO OPTICS ENGINEER DRUGS OF ABUSE SCREEN, URINE WITH REFLEX CONFIRMATION STAT 05/01/2023 5:19 AM ELECTRO OPTICS ENGINEER EGFR STAT 05/01/2023 5:19 AM ELECTRO OPTICS ENGINEER DIFFERENTIAL AUTO STAT 05/01/2023 5:1 9 AM ELECTRO OPTICS ENGINEER URINALYSIS AND REFLEX TO MICROSCOPIC AND CULTURE STAT 05/01/2023 5:19 AM ELECTRO OPTICS ENGINEER CBC WITH AUTO DIFFERENTIAL STAT 05/01/2023 5:19 AM ELECTRO OPTICS ENGINEER URINALYSIS, MICROSCOPIC ONLY STAT 05/01/2023 5:19 AM ELECTRO OPTICS ENGINEER APTT Routine 05/01/2023 5:19 AM ELECTRO OPTICS ENGINEER PROTIME-INR STAT 05/01/2023 5:19 AM ELECTRO OPTICS ENGINEER COMPREHENSIVE METABOLIC PANEL STAT 05/01/2023 5:19 AM ELECTRO OPTICS ENGINEER ECG 12-LEAD Routine 05/01/2023 5:15 AM ELECTRO OPTICS ENGINEER XR CHEST 1 VIEW ED 05/01/2023 5:14 AM ELECTRO OPTICS ENGINEER documented in this encounter Results * CTA Chest Abdomen Pelvis (05/16/2023 10:28 AM ELECTRO OPTICS ENGINEER) Anatomical Region Laterality Modality Body N/A Computed Tomogra phy 05/16/2023 1:06 PM ELECTRO OPTICS ENGINEER Impressions 05/16/2023 4:50 PM ELECTRO OPTICS ENGINEER 1. Redemonstrated findings of type B aortic dissection status post thoracic endovascular aortic repair as well as endovascular stenting of the left subclavian artery. ??There is continued mild stenosis of the left subclavian artery stent which otherwise is patent. ??There is continued slightly increasing size of the false lumen and overall aortic diameter, most notable in the distal descending thoracic aorta which demonstrate persistent contrast opacification, likely related to a fenestration near the renal arteries. 2.. ??Improved but persistent groundglass nodules predominantly within the right upper lobe which are favored to represent sequela of improving infectious process, less likely sequela of prior pulmonary infarction. Dictated by: Nigel Dooley M.D. The radiology attending physician has personally reviewed this study, and had reviewed and/or edited this written report and agrees with it. Electronically signed by: Timmy Castillo M.D. Narrative 05/16/2023 4:50 PM ELECTRO OPTICS ENGINEER EXAMINATION: ??CT ANGIOGRAPHY OF THE CHEST, ABDOMEN AND PELVIS WITH AND WITHOUT CONTRAST HISTORY: Type B aortic dissection. ??Postoperative follow-up. TECHNIQUE: CT angiography of the chest, abdomen and pelvis was performed prior to and following the uneventful intravenous administration of 125 ml Optiray-350 using the post-endoluminal stent graft protocol. Vascular 3D images were generated on a dedicated workstation and also reviewed. COMPARISON: 2023 FINDINGS: VASCULAR FINDINGS: Postoperative changes of type A aortic dissection status post thoracic endovascular aortic repair with proximal attachment site at the aortic arch just distal to the origin of the left common carotid artery and distal attachment within the descending thoracic aorta at the level of the left atrium. ??The stent graft is patent. ??There is continued stenosis of the origin of the left subclavian stent graft. This is similar compared to prior examination. ??There is no evidence of stent migration. ??There is no definite evidence of endoleak. ??The dissection flap extends inferiorly to the level of the left common iliac artery, unchanged from prior examination. ??There is continued contrast opacification of the false lumen which may be related to a fenestration at the level of the renal arteries. ??The false lumen has slightly increased in size. Aortic diameter overall has slightly increased in size. For reference, at the level of the diaphragmatic hiatus the aorta measurements 32 x 34 mm now 35 x 35 cm. ??The diameter of the aorta the level of the proximal descending thoracic aorta is 39 x 40 mm. ??The diameter of the thoracic aortic stent graft is 31 x 31 mm. The the celiac artery, left renal artery arise from the false lumen. The superior mesenteric, right renal artery, and inferior mesenteric artery arise from the true lumen. ??The pelvic arterial vasculature is widely patent. NON-VASCULAR FINDINGS: Chest: Decreasing size of groundglass opacities within the right lung which represent evolving inflammatory/infectious process versus evolving sequela of pulmonary infarcts. ??There is scattered atelectasis within the left lung base. ??There is a small left pleural effusion, slightly increased from prior exam in addition, likely reactive. ??Heart size is normal. ??There is no pericardial effusion. ??No suspicious lymphadenopathy in the chest. Abdomen/Pelvis: Redemonstrated hemangioma within the liver. ??The gallbladder is normal. ??Pancreas is normal. ??Spleen is heterogenous likely related to phase of contrast. ??Multiple bilateral renal stones which are nonobstructing are noted. ??Right renal cyst Too small to characterize hypoattenuating lesion in the left kidney. ??There is no hydronephrosis. ??Adrenal glands are normal. ??Bladder is normal. Large bowel is normal in course and caliber. ??The appendix is normal. Small bowel is normal in course and caliber. No suspicious lymphadenopathy in the abdomen or pelvis. There is stranding adjacent to the left femoral vasculature likely representing sequela of prior vascular access. Procedure Note Timmy Castillo MD - 05/16/2023 EXAMINATION: CT ANGIOGRAPHY OF THE CHEST, ABDOMEN AND PELVIS WITH AND WITHOUT CONTRAST HISTORY: Type B aortic dissection. Postoperative follow-up. TECHNIQUE: CT angiography of the chest, abdomen and pelvis was performed prior to and following the uneventful intravenous administration of 125 ml Optiray-350 using the post-endoluminal stent graft protocol. Vascular 3D images were generated on a dedicated workstation and also reviewed. COMPARISON: 2023 FINDINGS: VASCULAR FINDINGS: Postoperative changes of type A aortic dissection status post thoracic endovascular aortic repair with proximal attachment site at the aortic arch just distal to the origin of the left common carotid artery and distal attachment within the descending thoracic aorta at the level of the left atrium. The stent graft is patent. There is continued stenosis of the origin of the left subclavian stent graft. This is similar compared to prior examination. There is no evidence of stent migration. There is no definite evidence of endoleak. The dissection flap extends inferiorly to the level of the left common iliac artery, unchanged from prior examination. There is continued contrast opacification of the false lumen which may be related to a fenestration at the level of the renal arteries. The false lumen has slightly increased in size. Aortic diameter overall has slightly increased in size. For reference, at the level of the diaphragmatic hiatus the aorta measurements 32 x 34 mm now 35 x 35 cm. The diameter of the aorta the level of the proximal descending thoracic aorta is 39 x 40 mm. The diameter of the thoracic aortic stent graft is 31 x 31 mm. The the celiac artery, left renal artery arise from the false lumen. The superior mesenteric, right renal artery, and inferior mesenteric artery arise from the true lumen. The pelvic arterial vasculature is widely patent. NON-VASCULAR FINDINGS: Chest: Decreasing size of groundglass opacities within the right lung which represent evolving inflammatory/infectious process versus evolving sequela of pulmonary infarcts. There is scattered atelectasis within the left lung base. There is a small left pleural effusion, slightly increased from prior exam in addition, likely reactive. Heart size is normal. There is no pericardial effusion. No suspicious lymphadenopathy in the chest. Abdomen/Pelvis: Redemonstrated hemangioma within the liver. The gallbladder is normal. Pancreas is normal. Spleen is heterogenous likely related to phase of contrast. Multiple bilateral renal stones which are nonobstructing are noted. Right renal cyst Too small to characterize hypoattenuating lesion in the left kidney. There is no hydronephrosis. Adrenal glands are normal. Bladder is normal. Large bowel is normal in course and caliber. The appendix is normal. Small bowel is normal in course and caliber. No suspicious lymphadenopathy in the abdomen or pelvis. There is stranding adjacent to the left femoral vasculature likely representing sequela of prior vascular access. IMPRESSION: 1. Redemonstrated findings of type B aortic dissection status post thoracic endovascular aortic repair as well as endovascular stenting of the left subclavian artery. There is continued mild stenosis of the left subclavian artery stent which otherwise is patent. There is continued slightly increasing size of the false lumen and overall aortic diameter, most notable in the distal descending thoracic aorta which demonstrate persistent contrast opacification, likely related to a fenestration near the renal arteries. 2.. Improved but persistent groundglass nodules predominantly within the right upper lobe which are favored to represent sequela of improving infectious process, less likely sequela of prior pulmonary infarction. Dictated by: Nigel Dooley M.D. The radiology attending physician has personally reviewed this study, and had reviewed and/or edited this written report and agrees with it. Electronically signed by: Timmy Castillo M.D. Meron Parekh NP IMG CT PROCEDURES Sally l Result * eGFR (05/16/2023 4:03 AM ELECTRO OPTICS ENGINEER) [facility] Signature eGFR >90 >=60 mL/min/1. 73 m2 [facility] Comment: Interpretive Data Reference Interval Normal ?>/= [...] interpretive data was last reviewed 2021. Blood 05/16/2023 4:03 AM ELECTRO OPTICS ENGINEER 05/16/2023 4:29 AM ELECTRO OPTICS ENGINEER Faustino Herrera MD LAB BLOOD ORDERABLES Final Result Performing Organization Address [facility] Co de Phone Number [facility] [place] [address] * Phosphorus (05/16/2023 4:03 AM ELECTRO OPTICS ENGINEER) Pathologist [facility] Phosphorus, pl 4.2 2.3 - 4.5 mg/dL [facility] Blood 05/16/2023 4:03 AM ELECTRO OPTICS ENGINEER 05/16/2023 4:29 AM ELECTRO OPTICS ENGINEER Faustino Herrera MD LAB BLOOD ORDERABLES Final Result Performing Organization Address [facility] de Phone Number [facility] [place] [address] * Magnesium (05/16/2023 4:03 AM ELECTRO OPTICS ENGINEER) [facility] Magnesium 2.4 1.4 - 2.5 mg/dL [facility] Blood 05/16/2023 4:03 AM ELECTRO OPTICS ENGINEER 05/16/2023 4:29 AM ELECTRO OPTICS ENGINEER Faustino Herrera MD LAB BLOOD ORDERABLES Final Result Performing Organization Address [facility] [place] [address] * Basic metabolic panel (05/16/2023 4:03 AM ELECTRO OPTICS ENGINEER) [facility] Sodium 140 135 - 145 mmol/L [facility] Potassium, pl 3.9 3.3 - 4.9 mmol/L [facility] Chloride 104 97 - 110 mmol/L [facility] CO2 23 22 - 32 mmol/L [facility] Anion gap 13 2 - 15 mmol/L [facility] BUN 12 6 - 25 mg/dL [facility] Creatinine 0.90 0.80 - 1.30 mg/dL [facility] Glucose 116 70 - 199 mg/dL [facility] Comment: Interpretive Data Fasting glucose >/= [...] 2022. Calcium 9.0 8.5 - 10.3 mg/dL [facility] Blood 05/16/2023 4:03 AM ELECTRO OPTICS ENGINEER 05/16/2023 4:29 AM ELECTRO OPTICS ENGINEER Faustino Herrera MD LAB BLOOD ORDERABLES Final Result [facility] Department [place] [address] * (ABNORMAL) CBC without differential (05/16/2023 4:03 AM ELECTRO OPTICS ENGINEER) WBC 13.3(H) 3.8 - 9.9 K/cumm [facility] Hgb 9.6(L) 13.0 - 17.5 g/dL [facility] Hct 29.9(L) 38.9 - 50.3 % [facility] Plt 714(H) 150 - 400 K/cumm [facility] MPV 9.7 9.1 - 12.3 fL [facility] RBC 3.22(L) 4.30 - 5.80 M/cumm [facility] MCV 92.9 81.3 - 96.4 fL [facility] MCH 29.8 27.1 - 33.3 pg [facility] MCHC 32.1(L) 32.3 - 35.7 g/dL [facility] RDW CV 13.1 11.1 - 14.9 % [facility] RDW SD 44.6 35.7 - 48.1 fL [facility] NRBC abs 0.00 0.00 - 0.01 K/cumm [facility] Blood 05/16/2023 4:03 AM ELECTRO OPTICS ENGINEER 05/16/2023 4:29 AM ELECTRO OPTICS ENGINEER Faustino Herrera MD LAB BLOOD ORDERABLES Final Result Performing Organization Address [facility] Co de Phone Number [facility] [place] [address] * Type and screen (05/15/2023 5:26 AM ELECTRO OPTICS ENGINEER) Pathologist [facility] Ellen, indirect Negative ABO Rh A Positive [facility] Blood 05/15/2023 5:26 AM ELECTRO OPTICS ENGINEER 05/15/2023 5:26 AM ELECTRO OPTICS ENGINEER Faustino Herrera MD LAB BLOOD BANK TEST ORDERA BLES Final Result Performing Organization Address [facility] de Phone Number [facility] [place] [address] * (ABNORMAL) CBC without differential (05/15/2023 5:12 AM ELECTRO OPTICS ENGINEER) [facility] WBC 14.3(H) 3.8 - 9.9 K/cumm [facility] Hgb 9.6(L) 13.0 - 17.5 g/dL [facility] Comment:Consistent with prev ious result. Hct 29.4(L) 38.9 - 50.3 % [facility] Plt 679(H) 150 - 400 K/cumm [facility] MPV 9.3 9.1 - 12.3 fL [facility] RBC 3.21(L) 4.30 - 5.80 M/cumm [facility] MCV 91.6 81.3 - 96.4 fL [facility] MCH 29.9 27.1 - 33.3 pg [facility] MCHC 32.7 32.3 - 35.7 g/dL [facility] RDW CV 13.2 11.1 - 14.9 % [facility] RDW SD 44.7 35.7 - 48.1 fL [facility] NRBC abs 0.00 0.00 - 0.01 K/cumm [facility] Blood 05/15/2023 5:12 AM ELECTRO OPTICS ENGINEER 05/15/2023 5:21 AM ELECTRO OPTICS ENGINEER us Sonia Clayton MD LAB BLOOD ORDERABLES Final Resul t [facility] Department [place] [address] * eGFR (05/15/2023 4:36 AM ELECTRO OPTICS ENGINEER) eGFR >90 >=60 mL/min/1. 73 m2 [facility] Comment: Interpretive Data Reference Interval Normal [...] interpretive data was last reviewed 2021. Blood 05/15/2023 4:36 AM ELECTRO OPTICS ENGINEER 05/15/2023 4:48 AM ELECTRO OPTICS ENGINEER Faustino Herrera MD LAB BLOOD ORDERABLES Final Result Performing Organization Address [facility] Co de Phone Number [facility] [place] [address] * Phosphorus (05/15/2023 4:36 AM ELECTRO OPTICS ENGINEER) Pathologist [facility] Phosphorus, pl 3.4 2.3 - 4.5 mg/dL [facility] Blood 05/15/2023 4:36 AM ELECTRO OPTICS ENGINEER 05/15/2023 4:48 AM ELECTRO OPTICS ENGINEER Faustino Herrera MD LAB BLOOD ORDERABLES Final Result Performing Organization Address [facility] de Phone Number [facility] [place] [address] * Magnesium (05/15/2023 4:36 AM ELECTRO OPTICS ENGINEER) [facility] Magnesium 2.5 1.4 - 2.5 mg/dL [facility] Blood 05/15/2023 4:36 AM ELECTRO OPTICS ENGINEER 05/15/2023 4:48 AM ELECTRO OPTICS ENGINEER Faustino Herrera MD LAB BLOOD ORDERABLES Final Result Performing Organization Address [facility] [place] [address] * Basic metabolic panel (05/15/2023 4:36 AM ELECTRO OPTICS ENGINEER) [facility] Sodium 138 135 - 145 mmol/L [facility] Potassium, pl 4.0 3.3 - 4.9 mmol/L [facility] Chloride 103 97 - 110 mmol/L [facility] CO2 22 22 - 32 mmol/L [facility] Anion gap 13 2 - 15 mmol/L [facility] BUN 14 6 - 25 mg/dL [facility] Creatinine 0.86 0.80 - 1.30 mg/dL [facility] Glucose 110 70 - 199 mg/dL [facility] Comment: Interpretive Data Fasting glucose >/= [...] 2022. Calcium 9.1 8.5 - 10.3 mg/dL [facility] Blood 05/15/2023 4:36 AM ELECTRO OPTICS ENGINEER 05/15/2023 4:48 AM ELECTRO OPTICS ENGINEER Faustino Herrera MD LAB BLOOD ORDERABLES Final Result [facility] Department [place] [address] * (ABNORMAL) CBC without differential (05/15/2023 4:36 AM ELECTRO OPTICS ENGINEER) WBC 18.8(H) 3.8 - 9.9 K/cumm [facility] Hgb 6.0(C) 13.0 - 17.5 g/dL [facility] Comment:Critical result call ed to and read back by BASIM DIETZ RN on 05 15 2023 at 0500 to Yolette Braswell. Hct 18.5(L) 38.9 - 50.3 % [facility] Plt 834(H) 150 - 400 K/cumm [facility] MPV 9.6 9.1 - 12.3 fL [facility] RBC 1.98(L) 4.30 - 5.80 M/cumm [facility] MCV 93.4 81.3 - 96.4 fL [facility] MCH 30.3 27.1 - 33.3 pg [facility] MCHC 32.4 32.3 - 35.7 g/dL [facility] RDW CV 13.3 11.1 - 14.9 % [facility] RDW SD 45.4 35.7 - 48.1 fL [facility] NRBC abs 0.00 0.00 - 0.01 K/cumm [facility] Blood 05/15/2023 4:36 AM ELECTRO OPTICS ENGINEER 05/15/2023 4:48 AM ELECTRO OPTICS ENGINEER us Faustino Herrera MD LAB BLOOD ORDERABLES Final Result [facility] Department [place] [address] * eGFR (05/14/2023 6:01 AM ELECTRO OPTICS ENGINEER) eGFR >90 >=60 mL/min/1. 73 m2 [facility] Comment: Interpretive Data Reference Interval Normal [...] interpretive data was last reviewed 2021. Blood 05/14/2023 6:01 AM ELECTRO OPTICS ENGINEER 05/14/2023 6:19 AM ELECTRO OPTICS ENGINEER Alonzo Duncan MD LAB BLOOD ORDERABLES Fin al Result Performing Organization Address [facility] Co de Phone Number [facility] [place] [address] * Phosphorus (05/14/2023 6:01 AM ELECTRO OPTICS ENGINEER) Pathologist [facility] Phosphorus, pl 4.0 2.3 - 4.5 mg/dL [facility] Blood 05/14/2023 6:01 AM ELECTRO OPTICS ENGINEER 05/14/2023 6:19 AM ELECTRO OPTICS ENGINEER us Faustino Herrera MD LAB BLOOD ORDERABLES Final Result Performing Organization Address [facility] Co de Phone Number [facility] Department [place] [address] * Magnesium (05/14/2023 6:01 AM ELECTRO OPTICS ENGINEER) Pathologist [facility] Magnesium 2.3 1.4 - 2.5 mg/dL [facility] Blood 05/14/2023 6:01 AM ELECTRO OPTICS ENGINEER 05/14/2023 6:19 AM ELECTRO OPTICS ENGINEER Faustino Herrera MD LAB BLOOD ORDERABLES Final Result Performing Organization Address [facility] [place] [address] * Basic metabolic panel (05/14/2023 6:01 AM ELECTRO OPTICS ENGINEER) Sodium 138 135 - 145 mmol/L [facility] Potassium, pl 3.8 3.3 - 4.9 mmol/L [facility] Chloride 102 97 - 110 mmol/L [facility] CO2 25 22 - 32 mmol/L [facility] Anion gap 11 2 - 15 mmol/L [facility] BUN 15 6 - 25 mg/dL [facility] Creatinine 0.86 0.80 - 1.30 mg/dL [facility] Glucose 123 70 - 199 mg/dL [facility] Comment: Interpretive Data Fasting glucose >/= [...] 2022. Calcium 9.4 8.5 - 10.3 mg/dL [facility] Blood 05/14/2023 6:01 AM ELECTRO OPTICS ENGINEER 05/14/2023 6:19 AM ELECTRO OPTICS ENGINEER Faustino Herrera MD LAB BLOOD ORDERABLES Final Result [facility] Department [place] [address] * (ABNORMAL) CBC without differential (05/14/2023 6:01 AM ELECTRO OPTICS ENGINEER) [facility] WBC 14.5(H) 3.8 - 9.9 K/cumm [facility] Hgb 10.5(L) 13.0 - 17.5 g/dL [facility] Comment: Interpretive Data A reference range for this assay has not been established for patients with an unknown legal sex. Please refer to the laboratory test catalog for established sex-specific reference intervals. Current interpretive data was last revised on 2023. Hct 32.1(L) 38.9 - 50.3 % [facility] Comment: Interpretive Data A reference range for this assay has not been established for patients with an unknown legal sex. Please refer to the laboratory test catalog for established sex-specific reference intervals. Current interpretive data was last revised on 2023. Plt 679(H) 150 - 400 K/cumm [facility] MPV 9.9 9.1 - 12.3 fL [facility] RBC 3.49(L) 4.30 - 5.80 M/cumm [facility] Comment: Interpretive Data A reference range for this assay has not been established for patients with an unknown legal sex. Please refer to the laboratory test catalog for established sex-specific reference intervals. Current interpretive data was last revised on 2023. MCV 92.0 81.3 - 96.4 fL [facility] MCH 30.1 27.1 - 33.3 pg [facility] MCHC 32.7 32.3 - 35.7 g/dL [facility] RDW CV 13.3 11.1 - 14.9 % [facility] RDW SD 45.0 35.7 - 48.1 fL [facility] NRBC abs 0.00 0.00 - 0.01 K/cumm [facility] Blood 05/14/2023 6:01 AM ELECTRO OPTICS ENGINEER 05/14/2023 6:20 AM ELECTRO OPTICS ENGINEER us Faustino Herrera MD LAB BLOOD ORDERABLES Final Result [facility] Department [place] [address] * XR Chest 1 View (05/13/2023 7:10 PM ELECTRO OPTICS ENGINEER) Anatomical Region Laterality Modality Body, Chest N/A Computed Radiogr aphy 05/14/2023 7:04 AM ELECTRO OPTICS ENGINEER Impressions 05/14/2023 7:49 AM ELECTRO OPTICS ENGINEER The current study is compared with the prior radiograph dated 05/12/2023. Thoracic aorta endovascular stent graft with stent graft in proximal left subclavian artery is unchanged. ??Small lung volumes with mild bibasilar atelectasis. ??No consolidation, pleural effusion or pneumothorax. ??Cardiomediastinal silhouette is unchanged. Dictated by: Candace Moss M.D. The radiology attending physician has personally reviewed this study, and had reviewed and/or edited this written report and agrees with it. Electronically signed by: Elzbieta Vital.D. Narrative 05/14/2023 7:49 AM ELECTRO OPTICS ENGINEER EXAMINATION: 1 view chest radiograph Procedure Note Hipolito Mobley MD - 05/14/2023 EXAMINATION: 1 view chest radiograph IMPRESSION: The current study is compared with the prior radiograph dated 05/12/2023. Thoracic aorta endovascular stent graft with stent graft in proximal left subclavian artery is unchanged. Small lung volumes with mild bibasilar atelectasis. No consolidation, pleural effusion or pneumothorax. Cardiomediastinal silhouette is unchanged. Dictated by: Candace Moss M.D. The radiology attending physician has personally reviewed this study, and had reviewed and/or edited this written report and agrees with it. Electronically signed by: Hipolito Mobley M.D. us Faustino Herrera MD IMG XR PROCEDURES Final Re sult * Critical Care (05/13/2023 12:56 PM ELECTRO OPTICS ENGINEER) Narrative Dalton Locke MD - 05/13/2023 12:56 PM ELECTRO OPTICS ENGINEER Dalton Locke MD ? 05/13/2023 12:57 PM Critical Care Performed by: Dalton Locke MD Authorized by: Dalton Locke MD ?? CRITICAL CARE: ??Team: ??83 CTICU ??Shift: ??AM ??Level of Billing: ??Subsequent Hospital Visit Level 3 ??My time spent with this patient was 20 minutes: Critical Provider Statement: I have seen and examined the patient on this day of service. I have reviewed and confirmed the history, physical exam, laboratory, and radiographic data as documented in the ICU note. I have reviewed and discussed my treatment plan with the patient's team and other medical/sap security consultant staff. This time was in addition to and separate from care provided by other practitioners on this day of service. ? I spent time reviewing and interpreting data from bedside monitors, laboratory results, and imaging, I spent time discussing the management of this critically ill patient with consultants and the medical staff and I spent time documenting in the medical record us Dalton Locke MD IN CLINIC/BEDSIDE ORDERABLES Final Result * eGFR (05/13/2023 12:10 AM ELECTRO OPTICS ENGINEER) eGFR >90 >=60 mL/min/1. 73 m2 [facility] [...] interpretive data was last reviewed 2021. Blood 05/13/2023 12:1 0 AM ELECTRO OPTICS ENGINEER 05/13/2023 12:31 AM ELECTRO OPTICS ENGINEER us Alonzo Duncan MD LAB BLOOD ORDERABLES Fin al Result [facility] [place] [address] * Type and screen (05/13/2023 12:10 AM ELECTRO OPTICS ENGINEER) Ellen, indirect Negative ABO Rh A Positive [facility] Blood 05/13/2023 12:1 0 AM ELECTRO OPTICS ENGINEER 05/13/2023 12:42 AM ELECTRO OPTICS ENGINEER Narrative [facility] - 05/13/2023 1:43 AM ELECTRO OPTICS ENGINEER Has the patient had Daratumumab or Isatuximab in the past 6 months?->Unknown Faustino Herrera MD LAB BLOOD BANK TEST ORDERA BLES Final Result Performing Organization Address [facility] [place] [address] * aPTT (05/13/2023 12:10 AM ELECTRO OPTICS ENGINEER) aPTT 33 28 - 38 sec [facility] Comment: Interpretive Data Heparin therapeutic range: 66.0 - 100.0 seconds. Range based on correlation with therapeutic heparin activity range of 0.3 - 0.7 Units/mL. Current interpretive data was last revised on 2023. Blood 05/13/2023 12:1 0 AM ELECTRO OPTICS ENGINEER 05/13/2023 12:39 AM ELECTRO OPTICS ENGINEER Faustino Herrera MD LAB BLOOD ORDERABLES Final Result Performing Organization Address [facility] [place] [address] * (ABNORMAL) Protime-INR (05/13/2023 12:10 AM ELECTRO OPTICS ENGINEER) PT 15.5(H) 10.3 - 13.7 sec [facility] INR 1.36(H) 0.90 - 1.20 [facility] Comment: Interpretive data Oral anticoagulant therapeutic ranges: Venous thromboembolism prophylaxis or treatment: 2.0-3.0 CARDIOLOGY Standard range: 2.0-3.0 High-intensity range: 2.5-3.5 Refer to indication-specific guidelines for appropriate target ranges for prosthetic heart valve replacement. Current interpretive data was last revised on 2019. Blood 05/13/2023 12:1 0 AM ELECTRO OPTICS ENGINEER 05/13/2023 12:39 AM ELECTRO OPTICS ENGINEER Faustino Herrera MD LAB BLOOD ORDERABLES Final Result Performing Organization Address [facility] Co de Phone Number [facility] [place] [address] * Phosphorus (05/13/2023 12:10 AM ELECTRO OPTICS ENGINEER) Pathologist [facility] Phosphorus, pl 3.3 2.3 - 4.5 mg/dL [facility] Blood 05/13/2023 12:1 0 AM ELECTRO OPTICS ENGINEER 05/13/2023 12:31 AM ELECTRO OPTICS ENGINEER Faustino Herrera MD LAB BLOOD ORDERABLES Final Result Performing Organization Address [facility] de Phone Number [facility] [place] [address] * Magnesium (05/13/2023 12:10 AM ELECTRO OPTICS ENGINEER) [facility] Magnesium 2.2 1.4 - 2.5 mg/dL [facility] Blood 05/13/2023 12:1 0 AM ELECTRO OPTICS ENGINEER 05/13/2023 12:31 AM ELECTRO OPTICS ENGINEER Faustino Herrera MD LAB BLOOD ORDERABLES Final Result Performing Organization Address [facility] de Phone Number [facility] [place] [address] * Basic metabolic panel (05/13/2023 12:10 AM ELECTRO OPTICS ENGINEER) [facility] Sodium 137 135 - 145 mmol/L [facility] Potassium, pl 3.8 3.3 - 4.9 mmol/L [facility] Chloride 100 97 - 110 mmol/L [facility] CO2 25 22 - 32 mmol/L [facility] Anion gap 12 2 - 15 mmol/L [facility] BUN 16 6 - 25 mg/dL [facility] Creatinine 0.84 0.80 - 1.30 mg/dL [facility] Glucose 111 70 - 199 mg/dL [facility] Comment: Interpretive Data Fasting glucose >/= [...] 2022. Calcium 9.1 8.5 - 10.3 mg/dL [facility] Blood 05/13/2023 12:1 0 AM ELECTRO OPTICS ENGINEER 05/13/2023 12:31 AM ELECTRO OPTICS ENGINEER us Faustino Herrera MD LAB BLOOD ORDERABLES Final Result [facility] Department [place] [address] * (ABNORMAL) CBC without differential (05/13/2023 12:10 AM ELECTRO OPTICS ENGINEER) [facility] WBC 13.2(H) 3.8 - 9.9 K/cumm [facility] Hgb 10.2(L) 13.0 - 17.5 g/dL [facility] Comment: Interpretive Data A reference range for this assay has not been established for patients with an unknown legal sex. Please refer to the laboratory test catalog for established sex-specific reference intervals. Current interpretive data was last revised on 2023. Hct 32.0(L) 38.9 - 50.3 % [facility] Comment: Interpretive Data A reference range for this assay has not been established for patients with an unknown legal sex. Please refer to the laboratory test catalog for established sex-specific reference intervals. Current interpretive data was last revised on 2023. Plt 550(H) 150 - 400 K/cumm [facility] MPV 9.7 9.1 - 12.3 fL [facility] RBC 3.50(L) 4.30 - 5.80 M/cumm [facility] Comment: Interpretive Data A reference range for this assay has not been established for patients with an unknown legal sex. Please refer to the laboratory test catalog for established sex-specific reference intervals. Current interpretive data was last revised on 2023. MCV 91.4 81.3 - 96.4 fL [facility] MCH 29.1 27.1 - 33.3 pg [facility] MCHC 31.9(L) 32.3 - 35.7 g/dL [facility] RDW CV 13.2 11.1 - 14.9 % [facility] RDW SD 44.3 35.7 - 48.1 fL [facility] NRBC abs 0.00 0.00 - 0.01 K/cumm [facility] Blood 05/13/2023 12:1 0 AM ELECTRO OPTICS ENGINEER 05/13/2023 12:31 AM ELECTRO OPTICS ENGINEER Faustino Herrera MD LAB BLOOD ORDERABLES Final Result Performing Organization Address City/State/[facility] Co de Phone Number [facility] [place] [address] * XR Chest 1 View (05/12/2023 7:27 PM ELECTRO OPTICS ENGINEER) Anatomical Region Laterality Modality Body, Chest N/A Digital Radiogra phy 05/13/2023 6:11 AM ELECTRO OPTICS ENGINEER Impressions 05/13/2023 6:11 AM ELECTRO OPTICS ENGINEER Comparison is made to 2023. ??The right jugular catheter is been removed. ??There is an aortic stent graft. Atelectasis is seen within the left lung base. ??No pulmonary edema. No pleural effusion or pneumothorax. ??No pneumonic consolidation. Stable heart size. Electronically signed by: Gen Baker M.D. Narrative 05/13/2023 6:11 AM ELECTRO OPTICS ENGINEER EXAMINATION: 1 view chest radiograph Procedure Note Gen Baker MD - 05/13/2023 EXAMINATION: 1 view chest radiograph IMPRESSION: Comparison is made to 2023. The right jugular catheter is been removed. There is an aortic stent graft. Atelectasis is seen within the left lung base. No pulmonary edema. No pleural effusion or pneumothorax. No pneumonic consolidation. Stable heart size. Electronically signed by: Gen Baker M.D. Faustino Herrera MD IMG XR PROCEDURES Final Re sult * Critical Care (05/12/2023 4:16 PM ELECTRO OPTICS ENGINEER) Narrative Dalton Locke MD - 05/12/2023 4:16 PM ELECTRO OPTICS ENGINEER Dalton Locke MD ? 05/12/2023 ??4:16 PM Critical Care Performed by: Dalton Locke MD Authorized by: Dalton Locke MD ?? CRITICAL CARE: ??Team: ??83 CTICU ??Shift: ??AM ??Level of Billing: ??Subsequent Hospital Visit Level 3 ??My time spent with this patient was 20 minutes: Critical Provider Statement: I have seen and examined the patient on this day of service. I have reviewed and confirmed the history, physical exam, laboratory, and radiographic data as documented in the ICU note. I have reviewed and discussed my treatment plan with the patient's team and other medical/sap security consultant staff. This time was in addition to and separate from care provided by other practitioners on this day of service. ? I spent time reviewing and interpreting data from bedside monitors, laboratory results, and imaging, I spent time discussing the management of this critically ill patient with consultants and the medical staff and I spent time documenting in the medical record Dalton Locke MD IN CLINIC/BEDSIDE ORDERABLES Final Result * (ABNORMAL) CBC without differential (05/12/2023 1:58 PM ELECTRO OPTICS ENGINEER) [facility] WBC 13.0(H) 3.8 - 9.9 K/cumm [facility] Hgb 9.5(L) 13.0 - 17.5 g/dL [facility] Comment: Interpretive Data A reference range for this assay has not been established for patients with an unknown legal sex. Please refer to the laboratory test catalog for established sex-specific reference intervals. Current interpretive data was last revised on 2023. Hct 29.0(L) 38.9 - 50.3 % [facility] Comment: Interpretive Data A reference range for this assay has not been established for patients with an unknown legal sex. Please refer to the laboratory test catalog for established sex-specific reference intervals. Current interpretive data was last revised on 2023. Plt 478(H) 150 - 400 K/cumm [facility] MPV 9.7 9.1 - 12.3 fL [facility] RBC 3.18(L) 4.30 - 5.80 M/cumm [facility] Comment: Interpretive Data A reference range for this assay has not been established for patients with an unknown legal sex. Please refer to the laboratory test catalog for established sex-specific reference intervals. Current interpretive data was last revised on 2023. MCV 91.2 81.3 - 96.4 fL [facility] MCH 29.9 27.1 - 33.3 pg [facility] MCHC 32.8 32.3 - 35.7 g/dL [facility] RDW CV 13.2 11.1 - 14.9 % [facility] RDW SD 44.2 35.7 - 48.1 fL [facility] NRBC abs 0.00 0.00 - 0.01 K/cumm [facility] Blood 05/12/2023 1:58 PM ELECTRO OPTICS ENGINEER 05/12/2023 2:18 PM ELECTRO OPTICS ENGINEER Dustin Souza DO LAB BLOOD ORDERABLES F inal Result Performing Organization Address City/[facility]/ZIP Co de Phone Number [facility] [place] [place] [address] * Transfuse RBC (05/12/2023 11:13 AM ELECTRO OPTICS ENGINEER) Blood Faustino Herrera MD BLOOD TRANSFUSION ORDERABL ES Final Result Performing Organization Address [facility]/ZIP Co de Phone Number [facility] Department [place] [employer] [place] [address] * Transfuse RBC: 1 Units (05/12/2023 11:13 AM ELECTRO OPTICS ENGINEER) Blood Faustino Herrera MD BLOOD TRANSFUSION ORDERABL ES Final Result * POCT glucose (05/12/2023 8:50 AM ELECTRO OPTICS ENGINEER) [facility] Glucose, POC 117 70 - 199 mg/dL [facility] Blood 05/12/2023 8:50 AM ELECTRO OPTICS ENGINEER 05/12/2023 8:50 AM ELECTRO OPTICS ENGINEER Faustino Herrera MD LAB POCT ORDERABLES - ROSIE CE Final Result Performing Organization Address [facility] Co de Phone Number [facility] [place] [address] * Prepare RBC: 1 Units (05/12/2023 7:40 AM ELECTRO OPTICS ENGINEER) [facility] Product code [id number] Unit Number [id number] [facility] Product Blood Type ANEG [facility] Dispense Status PRESUMED TRANSFUSED [facility] Blood 05/12/2023 7:40 AM ELECTRO OPTICS ENGINEER 05/12/2023 7:40 AM ELECTRO OPTICS ENGINEER Narrative [facility] - 05/12/2023 4:02 PM ELECTRO OPTICS ENGINEER Other indication->Hgb goal >10 per vasc Are special requirements needed? (All products are leukoreduced and CMV- safe)- >No Date required:-[id number] LRRBC # of [id number] Reasons:-Other (specify)} Faustino Herrera MD BLOOD BANK PRODUCT ORDERAB LES Final Result Performing Organization Address [facility] Co de Phone Number [facility] [place] [address] * eGFR (05/12/2023 12:12 AM ELECTRO OPTICS ENGINEER) [facility] eGFR >90 >=60 mL/min/1. 73 m2 [facility] Comment: Interpretive Data Reference Interval Normal [...] interpretive data was last reviewed 2021. Blood 05/12/2023 12:1 2 AM ELECTRO OPTICS ENGINEER 05/12/2023 12:39 AM ELECTRO OPTICS ENGINEER us Alonzo Duncan MD LAB BLOOD ORDERABLES Fin al Result Performing Organization Address City/[facility]/ZIP Co de Phone Number [facility] Department [place] [address] * Potassium, whole blood (05/12/2023 12:12 AM ELECTRO OPTICS ENGINEER) Pathologist [facility] Potassium, bld 4.1 3.3 - 4.9 mmol/L [facility] Blood 05/12/2023 12:1 2 AM ELECTRO OPTICS ENGINEER 05/12/2023 12:35 AM ELECTRO OPTICS ENGINEER us Anderson Tolentino Jr., SECTION CUTTER LAB BLOOD ORDERABLE S Final Result [facility] [place] [address] * (ABNORMAL) Triglycerides (05/12/2023 12:12 AM ELECTRO OPTICS ENGINEER) Triglycerides 183(H) <=149 mg/dL [facility] Comment: Interpretive Data Ages < or = [...] Data was last revised on 2018. Blood 05/12/2023 12:1 2 AM ELECTRO OPTICS ENGINEER 05/12/2023 12:39 AM ELECTRO OPTICS ENGINEER Faustino Herrera MD LAB BLOOD ORDERABLES Final Result Performing Organization Address [facility] Co de Phone Number [facility] [place] [address] * aPTT (05/12/2023 12:12 AM ELECTRO OPTICS ENGINEER) aPTT 28 28 - 38 sec [facility] Comment: Interpretive Data Heparin therapeutic range: 66.0 - 100.0 seconds. Range based on correlation with therapeutic heparin activity range of 0.3 - 0.7 Units/mL. Current interpretive data was last revised on 2023. Blood 05/12/2023 12:1 2 AM ELECTRO OPTICS ENGINEER 05/12/2023 12:39 AM ELECTRO OPTICS ENGINEER Faustino Herrera MD LAB BLOOD ORDERABLES Final Result Performing Organization Address City/[facility] Co de Phone Number [facility] [place] [address] * (ABNORMAL) Protime-INR (05/12/2023 12:12 AM ELECTRO OPTICS ENGINEER) PT 15.3(H) 10.3 - 13.7 sec [facility] INR 1.34(H) 0.90 - 1.20 [facility] Comment: Interpretive data Oral anticoagulant therapeutic ranges: Venous thromboembolism prophylaxis or treatment: 2.0-3.0 CARDIOLOGY Standard range: 2.0-3.0 High-intensity range: 2.5-3.5 Refer to indication-specific guidelines for appropriate target ranges for prosthetic heart valve replacement. Current interpretive data was last revised on 2019. Blood 05/12/2023 12:1 2 AM ELECTRO OPTICS ENGINEER 05/12/2023 12:39 AM ELECTRO OPTICS ENGINEER Faustino Herrera MD LAB BLOOD ORDERABLES Final Result Performing Organization Address [facility] Co de Phone Number [facility] [place] [address] * Phosphorus (05/12/2023 12:12 AM ELECTRO OPTICS ENGINEER) Phosphorus, pl 2.6 2.3 - 4.5 mg/dL [facility] Blood 05/12/2023 12:1 2 AM ELECTRO OPTICS ENGINEER 05/12/2023 12:39 AM ELECTRO OPTICS ENGINEER Faustino Herrera MD LAB BLOOD ORDERABLES Final Result Performing Organization Address City/[facility] Co de Phone Number [facility] [place] [address] * Magnesium (05/12/2023 12:12 AM ELECTRO OPTICS ENGINEER) Pathologist [facility] Magnesium 2.3 1.4 - 2.5 mg/dL [facility] Blood 05/12/2023 12:1 2 AM ELECTRO OPTICS ENGINEER 05/12/2023 12:39 AM ELECTRO OPTICS ENGINEER us Faustino Herrera MD LAB BLOOD ORDERABLES Final Result [facility] [place] [address] * Basic metabolic panel (05/12/2023 12:12 AM ELECTRO OPTICS ENGINEER) Pathologist [facility] Sodium 136 135 - 145 mmol/L [facility] Potassium, pl 4.2 3.3 - 4.9 mmol/L [facility] Chloride 102 97 - 110 mmol/L [facility] CO2 24 22 - 32 mmol/L [facility] Anion gap 10 2 - 15 mmol/L [facility] BUN 19 6 - 25 mg/dL [facility] Creatinine 0.96 0.80 - 1.30 mg/dL [facility] Glucose 113 70 - 199 mg/dL [facility] Comment: Interpretive Data Fasting glucose >/= [...] 2022. Calcium 8.8 8.5 - 10.3 mg/dL [facility] Blood 05/12/2023 12:1 2 AM ELECTRO OPTICS ENGINEER 05/12/2023 12:39 AM ELECTRO OPTICS ENGINEER us Faustino Herrera MD LAB BLOOD ORDERABLES Final Result [facility] [place] [address] * (ABNORMAL) CBC without differential (05/12/2023 12:12 AM ELECTRO OPTICS ENGINEER) WBC 13.6(H) 3.8 - 9.9 K/cumm [facility] Hgb 8.6(L) 13.0 - 17.5 g/dL [facility] Comment: Interpretive Data A reference range for this assay has not been established for patients with an unknown legal sex. Please refer to the laboratory test catalog for established sex-specific reference intervals. Current interpretive data was last revised on 2023. Hct 25.9(L) 38.9 - 50.3 % [facility] Comment: Interpretive Data A reference range for this assay has not been established for patients with an unknown legal sex. Please refer to the laboratory test catalog for established sex-specific reference intervals. Current interpretive data was last revised on 2023. Plt 483(H) 150 - 400 K/cumm [facility] MPV 9.6 9.1 - 12.3 fL [facility] RBC 2.82(L) 4.30 - 5.80 M/cumm [facility] Comment: Interpretive Data A reference range for this assay has not been established for patients with an unknown legal sex. Please refer to the laboratory test catalog for established sex-specific reference intervals. Current interpretive data was last revised on 2023. MCV 91.8 81.3 - 96.4 fL [facility] MCH 30.5 27.1 - 33.3 pg [facility] MCHC 33.2 32.3 - 35.7 g/dL [facility] RDW CV 13.5 11.1 - 14.9 % [facility] RDW SD 45.5 35.7 - 48.1 fL [facility] NRBC abs 0.00 0.00 - 0.01 K/cumm [facility] Blood 05/12/2023 12:1 2 AM ELECTRO OPTICS ENGINEER 05/12/2023 12:38 AM ELECTRO OPTICS ENGINEER us Faustino Herrera MD LAB BLOOD ORDERABLES Final Result [facility] Department [place] [address] * XR Chest 1 View (2023 8:01 PM ELECTRO OPTICS ENGINEER) Anatomical Region Laterality Modality Body, Chest N/A Computed Radiogr aphy 05/12/2023 9:23 AM ELECTRO OPTICS ENGINEER Impressions 05/12/2023 9:46 AM ELECTRO OPTICS ENGINEER The current study is compared with the prior radiograph dated 05/10/2023 9:42 PM. ??Right internal jugular central venous catheter terminates at the superior cavoatrial junction. ??Thoracic aortic stent graft is present. The cardiomediastinal silhouette is stable. ??Small lung volumes. ??No consolidation or pulmonary edema. ??No pleural effusion. ??No pneumothorax. Dictated by: Chris Turner MD The radiology attending physician has personally reviewed this study, and had reviewed and/or edited this written report and agrees with it. Electronically signed by: Kamaljit Wheeler M.D. Narrative 05/12/2023 9:46 AM ELECTRO OPTICS ENGINEER EXAMINATION: 1 view chest radiograph Procedure Note Kamaljit Wheeler MD - 05/12/2023 EXAMINATION: 1 view chest radiograph IMPRESSION: The current study is compared with the prior radiograph dated 05/10/2023 9:42 PM. Right internal jugular central venous catheter terminates at the superior cavoatrial junction. Thoracic aortic stent graft is present. The cardiomediastinal silhouette is stable. Small lung volumes. No consolidation or pulmonary edema. No pleural effusion. No pneumothorax. Dictated by: Chris Turner MD The radiology attending physician has personally reviewed this study, and had reviewed and/or edited this written report and agrees with it. Electronically signed by: Kamaljit Wheeler M.D. us Faustino Herrera MD IMG XR PROCEDURES Final Re sult * Critical Care (2023 4:16 PM ELECTRO OPTICS ENGINEER) Narrative Dalton Locke MD - 2023 4:16 PM ELECTRO OPTICS ENGINEER Dalton Locke MD ? 05/12/2023 ??4:16 PM Critical Care Performed by: Dalton Locke MD Authorized by: Dalton Locke MD ?? CRITICAL CARE: ??Team: ??[id number] CTICU ??Shift: ??AM ??Level of Billing: ??Subsequent Hospital Visit Level 3 ??My time spent with this patient was 20 minutes: Critical Provider Statement: I have seen and examined the patient on this day of service. I have reviewed and confirmed the history, physical exam, laboratory, and radiographic data as documented in the ICU note. I have reviewed and discussed my treatment plan with the patient's team and other medical/sap security consultant staff. This time was in addition to and separate from care provided by other practitioners on this day of service. ? I spent time reviewing and interpreting data from bedside monitors, laboratory results, and imaging, I spent time discussing the management of this critically ill patient with consultants and the medical staff and I spent time documenting in the medical record us Dalton Locke MD IN CLINIC/BEDSIDE ORDERABLES Final Result * CTA Chest Abdomen Pelvis (2023 11:16 AM ELECTRO OPTICS ENGINEER) Anatomical Region Laterality Modality Body N/A Computed Tomogra phy 2023 11:5 7 AM ELECTRO OPTICS ENGINEER Impressions 2023 8:24 PM ELECTRO OPTICS ENGINEER 1. ??Residual type B thoracoabdominal aortic dissection with slight enlargement of the false lumen caliber distal descending thoracic aorta; the false lumen is supplied by retrograde flow from a fenestration at the level of the renal arteries. ??This finding may E patient's persistent pain. 2. ??Unchanged position of a left subclavian stent graft extending from the proximal/mid aortic arch to the mid-descending thoracic aorta; there is progressive kinking and stenosis at the origin of the left subclavian artery stent, though the stent remains patent. 3. Improving aeration in the lung bases, consistent with resolving atelectasis. ??However, there are new patchy areas of consolidation in the right upper lobe and left lower lobe superior segment, concerning for pneumonia. The Critical results were discussed with Dr. Sylvester ??by Dr. Emmanuel Browning MD ??on 2023 at 11:55 AM Dictated by: Emmanuel Browning MD The radiology attending physician has personally reviewed this study, and had reviewed and/or edited this written report and agrees with it. Electronically signed by: Monster Easley M.D. Narrative 2023 8:24 PM ELECTRO OPTICS ENGINEER EXAMINATION: CT ANGIOGRAPHY OF THE CHEST, ABDOMEN AND PELVIS WITH AND WITHOUT CONTRAST HISTORY: Type B aortic dissection, follow-up, postoperative TECHNIQUE: ??Computed tomographic images of the chest, abdomen and pelvis were acquired without and intravenous contrast using an angiographic protocol optimized for aortic dissection (aorta). ??The contrast enhanced transaxial images were obtained following the intravenous administration of 101 ml of nonionic contrast. Multiplanar reformatted images and three-dimensional images of the aorta and associated vasculature were obtained on the 3-D workstation and sent to the PACS archival system. ?? COMPARISON: 05/05/2023 FINDINGS: ?? Chest: Again seen are postoperative changes from endovascular stent grafting of a type B aortic dissection and left subclavian stent. ??The aortic and subclavian stent grafts are patent, with mildly progressive kinking and associated stenosis at the origin of the left subclavian artery. ??The aortic graft extends from the origin of the left common carotid artery to the mid descending aorta, unchanged from prior. ??A residual type B dissection originates from the distal margin of the stent graft and extends to the proximal left common iliac artery, unchanged from prior. 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 ??The superior mesenteric artery, renal arteries, and inferior mesenteric arteries arise from the true lumen. When compared to the prior examination, there is increasing size of the falls lumen, arising from a fenestration within the dissection flap (series 4 image 306). A right internal jugular venous catheter ends in the right atrium. No suspicious thoracic lymphadenopathy. ??The heart remains at the upper limits of normal in size without pericardial effusion. Scattered consolidations within the peripheral and jie-fissural right upper lobe are present (series 6 images 75 and 68), with overall markedly improved aeration of the prior examination and decreased left lower lobe collapse. ??A nodular consolidation within the superior left lower lobe (series 5 image 64) is present with mild bibasilar atelectasis. ??No pleural effusion or pneumothorax. Abdomen/Pelvis: Unchanged hepatic hemangioma. ??No new suspicious liver lesions. ??No biliary dilatation. ??The gallbladder contains dependently layering hyperdense material, likely vicarious excretion of contrast and/or sludge. ??The pancreas is unremarkable. ??The spleen contains calcified granulomas. ??The adrenal glands are normal. ??The kidneys enhance symmetrically with multiple monitor to renal stones bilaterally and scattered hypodensities, some of which are cysts and others of which are too small to characterize, but likely cysts. ??The urinary bladder is decompressed with a Hutton catheter and mildly thick-walled. ??The prostate is present. ??No bowel obstruction. ??Diverticulosis without acute diverticulitis. ??The appendix is visualized and normal (series 4 image 1254). ??No intra-abdominal free fluid or gas. ??The cutaneous fat stranding overlying the left groin likely reflects sequela of prior procedure. ??No enhancing fluid collection is noted about the left femoral vasculature to suggest active arterial extravasation and/or pseudoaneurysm. No acute fracture or osseous lesion. ??Previously described dorsal hematoma of the lower lumbar spine is not well demonstrated on this examination and would be more thoroughly assessed on repeat spine MRI. Procedure Note Monster Easley MD - 2023 EXAMINATION: CT ANGIOGRAPHY OF THE CHEST, ABDOMEN AND PELVIS WITH AND WITHOUT CONTRAST HISTORY: Type B aortic dissection, follow-up, postoperative TECHNIQUE: Computed tomographic images of the chest, abdomen and pelvis were acquired without and intravenous contrast using an angiographic protocol optimized for aortic dissection (aorta). The contrast enhanced transaxial images were obtained following the intravenous administration of 101 ml of nonionic contrast. Multiplanar reformatted images and three-dimensional images of the aorta and associated vasculature were obtained on the 3-D workstation and sent to the PACS archival system. COMPARISON: 05/05/2023 FINDINGS: Chest: Again seen are postoperative changes from endovascular stent grafting of a type B aortic dissection and left subclavian stent. The aortic and subclavian stent grafts are patent, with mildly progressive kinking and associated stenosis at the origin of the left subclavian artery. The aortic graft extends from the origin of the left common carotid artery to the mid descending aorta, unchanged from prior. A residual type B dissection originates from the distal margin of the stent graft and extends to the proximal left common iliac artery, unchanged from prior. 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 The superior mesenteric artery, renal arteries, and inferior mesenteric arteries arise from the true lumen. When compared to the prior examination, there is increasing size of the falls lumen, arising from a fenestration within the dissection flap (series 4 image 306). A right internal jugular venous catheter ends in the right atrium. No suspicious thoracic lymphadenopathy. The heart remains at the upper limits of normal in size without pericardial effusion. Scattered consolidations within the peripheral and jie-fissural right upper lobe are present (series 6 images 75 and 68), with overall markedly improved aeration of the prior examination and decreased left lower lobe collapse. A nodular consolidation within the superior left lower lobe (series 5 image 64) is present with mild bibasilar atelectasis. No pleural effusion or pneumothorax. Abdomen/Pelvis: Unchanged hepatic hemangioma. No new suspicious liver lesions. No biliary dilatation. The gallbladder contains dependently layering hyperdense material, likely vicarious excretion of contrast and/or sludge. The pancreas is unremarkable. The spleen contains calcified granulomas. The adrenal glands are normal. The kidneys enhance symmetrically with multiple monitor to renal stones bilaterally and scattered hypodensities, some of which are cysts and others of which are too small to characterize, but likely cysts. The urinary bladder is decompressed with a Hutton catheter and mildly thick-walled. The prostate is present. No bowel obstruction. Diverticulosis without acute diverticulitis. The appendix is visualized and normal (series 4 image 1254). No intra-abdominal free fluid or gas. The cutaneous fat stranding overlying the left groin likely reflects sequela of prior procedure. No enhancing fluid collection is noted about the left femoral vasculature to suggest active arterial extravasation and/or pseudoaneurysm. No acute fracture or osseous lesion. Previously described dorsal hematoma of the lower lumbar spine is not well demonstrated on this examination and would be more thoroughly assessed on repeat spine MRI. IMPRESSION: 1. Residual type B thoracoabdominal aortic dissection with slight enlargement of the false lumen caliber distal descending thoracic aorta; the false lumen is supplied by retrograde flow from a fenestration at the level of the renal arteries. This finding may E patient's persistent pain. 2. Unchanged position of a left subclavian stent graft extending from the proximal/mid aortic arch to the mid-descending thoracic aorta; there is progressive kinking and stenosis at the origin of the left subclavian artery stent, though the stent remains patent. 3. Improving aeration in the lung bases, consistent with resolving atelectasis. However, there are new patchy areas of consolidation in the right upper lobe and left lower lobe superior segment, concerning for pneumonia. The Critical results were discussed with Dr. Sylvester by Dr. Emmanuel Browning MD on 2023 at 11:55 AM Dictated by: Emmanuel rBowning MD The radiology attending physician has personally reviewed this study, and had reviewed and/or edited this written report and agrees with it. Electronically signed by: Monster Easley M.D. Faustino Herrear MD IMG CT PROCEDURES Final Re sult * eGFR (2023 12:14 AM ELECTRO OPTICS ENGINEER) [facility] eGFR 80 >=60 mL/min/1. 73 m2 [facility] Comment: Interpretive Data Reference Interval Normal [...] interpretive data was last reviewed 2021. Blood 2023 12:1 4 AM ELECTRO OPTICS ENGINEER 2023 12:31 AM ELECTRO OPTICS ENGINEER Alonzo Duncan MD LAB BLOOD ORDERABLES Fin al Result Performing Organization Address [facility] Co de Phone Number [facility] Department [place] [address] * (ABNORMAL) Blood gas, arterial (2023 12:14 AM ELECTRO OPTICS ENGINEER) pH, Art 7.43 7.35 - 7.45 [facility] PCO2, Arterial 34(L) 35 - 45 mmHg [facility] PO2, Arterial 110(H) 83 - 108 mmHg [facility] HCO3 Art (Calculated) 23 20 - 30 mmol/L [facility] BE, art -1 mmol/L [facility] Comment: Interpretive Data No Reference Range Established Current Interpretive Data was last revised on 2017 O2 Sat Art (Measured) 98(H) 90 - 95 % [facility] Blood 2023 12:1 4 AM ELECTRO OPTICS ENGINEER 2023 12:28 AM ELECTRO OPTICS ENGINEER Faustino Herrera MD LAB BLOOD ORDERABLES Final Result Performing Organization Address [facility] Co de Phone Number [facility] Department [place] [address] * Potassium, whole blood (2023 12:14 AM ELECTRO OPTICS ENGINEER) Potassium, bld 4.0 3.3 - 4.9 mmol/L [facility] Blood 2023 12:1 4 AM ELECTRO OPTICS ENGINEER 2023 12:28 AM ELECTRO OPTICS ENGINEER Anderson Tolentino Jr., NP LAB BLOOD ORDERABLE S Final Result Performing Organization Address [facility] [place] [address] * aPTT (2023 12:14 AM ELECTRO OPTICS ENGINEER) aPTT 36 28 - 38 sec [facility] Comment: Interpretive Data Heparin therapeutic range: 66.0 - 100.0 seconds. Range based on correlation with therapeutic heparin activity range of 0.3 - 0.7 Units/mL. Current interpretive data was last revised on 2023. Blood 2023 12:1 4 AM ELECTRO OPTICS ENGINEER 2023 12:41 AM ELECTRO OPTICS ENGINEER Faustino Herrera MD LAB BLOOD ORDERABLES Final Result Performing Organization Address [facility] [place] [address] * (ABNORMAL) Protime-INR (2023 12:14 AM ELECTRO OPTICS ENGINEER) PT 15.8(H) 10.3 - 13.7 sec [facility] INR 1.39(H) 0.90 - 1.20 [facility] Comment: Interpretive data Oral anticoagulant therapeutic ranges: Venous thromboembolism prophylaxis or treatment: 2.0-3.0 CARDIOLOGY Standard range: 2.0-3.0 High-intensity range: 2.5-3.5 Refer to indication-specific guidelines for appropriate target ranges for prosthetic heart valve replacement. Current interpretive data was last revised on 2019. Blood 2023 12:1 4 AM ELECTRO OPTICS ENGINEER 2023 12:41 AM ELECTRO OPTICS ENGINEER Faustino Herrera MD LAB BLOOD ORDERABLES Final Result Performing Organization Address [facility] [place] [address] * (ABNORMAL) Phosphorus (2023 12:14 AM ELECTRO OPTICS ENGINEER) Pathologist [facility] Phosphorus, pl 2.0(L) 2.3 - 4.5 mg/dL [facility] Blood 2023 12:1 4 AM ELECTRO OPTICS ENGINEER 2023 12:31 AM ELECTRO OPTICS ENGINEER Faustino Herrera MD LAB BLOOD ORDERABLES Final Result Performing Organization Address [facility] de Phone Number [facility] Department [place] [address] * Magnesium (2023 12:14 AM ELECTRO OPTICS ENGINEER) [facility] Magnesium 2.4 1.4 - 2.5 mg/dL [facility] Blood 2023 12:1 4 AM ELECTRO OPTICS ENGINEER 2023 12:31 AM ELECTRO OPTICS ENGINEER Faustino Herrera MD LAB BLOOD ORDERABLES Final Result Performing Organization Address [facility] de Phone Number [facility] [place] [address] * Basic metabolic panel (2023 12:14 AM ELECTRO OPTICS ENGINEER) [facility] Sodium 136 135 - 145 mmol/L [facility] Potassium, pl 4.1 3.3 - 4.9 mmol/L [facility] Chloride 100 97 - 110 mmol/L [facility] CO2 23 22 - 32 mmol/L [facility] Anion gap 13 2 - 15 mmol/L [facility] BUN 23 6 - 25 mg/dL [facility] Creatinine 1.24 0.80 - 1.30 mg/dL [facility] Glucose 121 70 - 199 mg/dL [facility] Comment: Interpretive Data Fasting glucose >/= [...] 2022. Calcium 8.9 8.5 - 10.3 mg/dL [facility] Blood 2023 12:1 4 AM ELECTRO OPTICS ENGINEER 2023 12:31 AM ELECTRO OPTICS ENGINEER us Faustino Herrera MD LAB BLOOD ORDERABLES Final Result [facility] Department [place] [address] * (ABNORMAL) CBC without differential (2023 12:14 AM ELECTRO OPTICS ENGINEER) [facility] WBC 17.6(H) 3.8 - 9.9 K/cumm [facility] Hgb 8.7(L) 13.0 - 17.5 g/dL [facility] Comment: Interpretive Data A reference range for this assay has not been established for patients with an unknown legal sex. Please refer to the laboratory test catalog for established sex-specific reference intervals. Current interpretive data was last revised on 2023. Hct 26.5(L) 38.9 - 50.3 % [facility] Comment: Interpretive Data A reference range for this assay has not been established for patients with an unknown legal sex. Please refer to the laboratory test catalog for established sex-specific reference intervals. Current interpretive data was last revised on 2023. Plt 411(H) 150 - 400 K/cumm [facility] MPV 9.6 9.1 - 12.3 fL [facility] RBC 2.93(L) 4.30 - 5.80 M/cumm [facility] Comment: Interpretive Data A reference range for this assay has not been established for patients with an unknown legal sex. Please refer to the laboratory test catalog for established sex-specific reference intervals. Current interpretive data was last revised on 2023. MCV 90.4 81.3 - 96.4 fL [facility] MCH 29.7 27.1 - 33.3 pg [facility] MCHC 32.8 32.3 - 35.7 g/dL [facility] RDW CV 13.5 11.1 - 14.9 % [facility] RDW SD 45.0 35.7 - 48.1 fL [facility] NRBC abs 0.02(H) 0.00 - 0.01 K/cumm [facility] Blood 2023 12:1 4 AM ELECTRO OPTICS ENGINEER 2023 12:31 AM ELECTRO OPTICS ENGINEER us Faustino Herrera MD LAB BLOOD ORDERABLES Final Result [facility] Department [place] [address] * XR Chest 1 View (05/10/2023 9:50 PM ELECTRO OPTICS ENGINEER) Anatomical Region Laterality Modality Body, Chest N/A Computed Radiogr aphy 2023 9:17 AM ELECTRO OPTICS ENGINEER Impressions 2023 9:27 AM ELECTRO OPTICS ENGINEER The current study is compared with the prior radiograph dated 05/09/2023 8:11 PM. ??Right internal jugular central venous catheter terminates at the superior cavoatrial junction. ??There is a thoracic aortic stent graft with left subclavian stent, unchanged. The cardiomediastinal silhouette is stable. ??Small lung volumes. ??No consolidation or pulmonary edema. ??No pleural effusion. ??No pneumothorax. Dictated by: Chris Turner MD The radiology attending physician has personally reviewed this study, and had reviewed and/or edited this written report and agrees with it. Electronically signed by: Chung Boone M.D. Narrative 2023 9:27 AM ELECTRO OPTICS ENGINEER EXAMINATION: 1 view chest radiograph Procedure Note Chung Boone MD - 2023 EXAMINATION: 1 view chest radiograph IMPRESSION: The current study is compared with the prior radiograph dated 05/09/2023 8:11 PM. Right internal jugular central venous catheter terminates at the superior cavoatrial junction. There is a thoracic aortic stent graft with left subclavian stent, unchanged. The cardiomediastinal silhouette is stable. Small lung volumes. No consolidation or pulmonary edema. No pleural effusion. No pneumothorax. Dictated by: Chris Turner MD The radiology attending physician has personally reviewed this study, and had reviewed and/or edited this written report and agrees with it. Electronically signed by: Chung Boone M.D. Faustino Herrera MD IMG XR PROCEDURES Final Re sult * ECG 12 lead (05/10/2023 6:19 PM ELECTRO OPTICS ENGINEER) Pathologist [facility] Ventricular Rate EKG/Min 119 BPM [facility] Atrial Rate 119 BPM [facility] AL-Interval (MSEC) 138 ms [facility] QRS-Interval (MSEC) 88 ms [facility] QT-Interval (MSEC) 322 ms [facility] QTc 452 ms [facility] P [place] 39 degrees [facility] R [place] -5 degrees [facility] T [place] 42 degrees [facility] Diagnosis Poor data quality, interpretation may be adversely [...] Lateral leads Confirmed by ADAM VALVERDE M.D ([id number]) on 2023 11:47:49 AM [facility] 05/10/2023 6:19 PM ELECTRO OPTICS ENGINEER 2023 11:47 AM ELECTRO OPTICS ENGINEER Faustino Herrera MD ECG ORDERABLES Final Resu lt [facility] * Lidocaine level (05/10/2023 4:59 PM ELECTRO OPTICS ENGINEER) Lidocaine (Xylocaine) 3.8 1.5 - 5.0 mcg/mL [facility] Blood 05/10/2023 4:59 PM ELECTRO OPTICS ENGINEER 05/10/2023 5:09 PM ELECTRO OPTICS ENGINEER Faustino Herrera MD LAB BLOOD ORDERABLES Final Result [facility] [facility] Department [place] [address] * Critical Care (05/10/2023 4:14 PM ELECTRO OPTICS ENGINEER) Narrative Dalton Locke MD - 05/10/2023 4:14 PM ELECTRO OPTICS ENGINEER Dalton Locke MD ? 05/12/2023 ??4:16 PM Critical Care Performed by: Dalton Locke MD Authorized by: Dalton Locke MD ?? CRITICAL CARE: ??Team: ??83 CTICU ??Shift: [...] plan with the ICU team and other medical/sap security consultant staff, making frequent assessments and decisions [...] life-threatening deterioration of the following conditions: ? Aortic dissection/aneurysm ?? Hypervolemia Concern for Spinal Cord Ischemia ??This time was spent by me doing the following: ? Lumbar drain management ?? Initiation/active titration of vasoactive medications ?? Active and frequent reassessment of respiratory status and oxygen requirements ?? Active and frequent monitoring of intake/output and volumen status ?? Active diuresis ?? Empiric broad coverage antibiotics ?? I spent time reviewing and interpreting data from bedside monitors, laboratory results, and imaging, I spent time discussing the management of this critically ill patient with consultants and the medical staff and I spent time documenting in the medical record us Dalton Locke MD IN CLINIC/BEDSIDE ORDERABLES Final Result * Blood culture Blood (05/10/2023 12:57 PM ELECTRO OPTICS ENGINEER) Report Final Report: No growth JAIRON ERWIN Blood 05/10/2023 12:5 7 PM ELECTRO OPTICS ENGINEER 05/10/2023 2:14 PM ELECTRO OPTICS ENGINEER Narrative JAIRON ERWIN - 05/14/2023 4:00 PM ELECTRO OPTICS ENGINEER Collection->Peripheral 1. ?Blood cultures are incubated for [...] organism identification may be performed using the Medical Referral [employer] Gram-Positive Blood Culture Assay. This assay detects microbial DNA in positive blood culture broth via hybridization of target DNA to capture oligonucleotides on a microarray. This assay has been cleared by the [place] Food and Drug Administration and its performance characteristics have been verified by the [facility]. 5. ?For questions about this culture, contact the Microbiology Laboratory at [phone]. Interpretive data was last revised on 2019. us Marina Cordova NP LAB MICROBIOLOGY - GENERAL ORDERABLES Final Result JAIRON ERWIN [facility] Department [place] [address] * Blood culture Blood (05/10/2023 12:57 PM ELECTRO OPTICS ENGINEER) Report Final Report: No growth [facility] Blood 05/10/2023 12:5 7 PM ELECTRO OPTICS ENGINEER 05/10/2023 2:14 PM ELECTRO OPTICS ENGINEER Narrative JAIRON ERWIN - 05/14/2023 4:00 PM ELECTRO OPTICS ENGINEER Collection->Peripheral 1. ?Blood cultures are incubated for [...] organism identification may be performed using the Medical Referral [employer] Gram-Positive Blood Culture Assay. This assay detects microbial DNA in positive blood culture broth via hybridization of target DNA to capture oligonucleotides on a microarray. This assay has been cleared by the [place] Food and Drug Administration and its performance characteristics have been verified by the [facility]. 5. ?For questions about this culture, contact the Microbiology Laboratory at [phone]. Interpretive data was last revised on 2019. Marina Cordova NP LAB MICROBIOLOGY - GENERAL ORDERABLES Final Result [facility] Department [place] [address] * Hepatic function panel (05/10/2023 12:37 AM ELECTRO OPTICS ENGINEER) Bilirubin, total 0.7 0.1 - 1.2 mg/dL [facility] Bilirubin, direct 0.3 0.1 - 0.3 mg/dL [facility] Protein, pl 8.0 6.5 - 8.5 g/dL [facility] Albumin 3.7 3.5 - 5.0 g/dL [facility] Alk phos 88 40 - 130 Units/L [facility] ALT 28 7 - 55 Units/L [facility] AST 30 10 - 50 Units/L [facility] Blood 05/10/2023 12:3 7 AM ELECTRO OPTICS ENGINEER 05/10/2023 12:48 AM ELECTRO OPTICS ENGINEER us Faustino Herrera MD LAB BLOOD ORDERABLES Final Result [facility] Department [place] [address] * eGFR (05/10/2023 12:37 AM ELECTRO OPTICS ENGINEER) eGFR >90 >=60 mL/min/1. 73 m2 [facility] Comment: Interpretive Data Reference Interval Normal [...] interpretive data was last reviewed 2021. Blood 05/10/2023 12:3 7 AM ELECTRO OPTICS ENGINEER 05/10/2023 12:48 AM ELECTRO OPTICS ENGINEER Alonzo Duncan MD LAB BLOOD ORDERABLES Fin al Result Performing Organization Address [facility] Co de Phone Number [facility] [place] [address] * (ABNORMAL) Blood gas, arterial (05/10/2023 12:37 AM ELECTRO OPTICS ENGINEER) pH, Art 7.41 7.35 - 7.45 [facility] PCO2, Arterial 34(L) 35 - 45 mmHg [facility] PO2, Arterial 131(H) 83 - 108 mmHg [facility] HCO3 Art (Calculated) 22 20 - 30 mmol/L [facility] BE, art -3 mmol/L [facility] Comment: Interpretive Data No Reference Range Established Current Interpretive Data was last revised on 2017 O2 Sat Art (Measured) 99(H) 90 - 95 % [facility] Blood 05/10/2023 12:3 7 AM ELECTRO OPTICS ENGINEER 05/10/2023 12:40 AM ELECTRO OPTICS ENGINEER Faustino Herrera MD LAB BLOOD ORDERABLES Final Result Performing Organization Address [facility] de Phone Number [facility] [place] [address] * (ABNORMAL) Lactate (05/10/2023 12:37 AM ELECTRO OPTICS ENGINEER) Lactate 0.6(L) 0.7 - 2.0 mmol/L [facility] Blood 05/10/2023 12:3 7 AM ELECTRO OPTICS ENGINEER 05/10/2023 12:47 AM ELECTRO OPTICS ENGINEER Alonzo Duncan MD LAB BLOOD ORDERABLES Fin al Result Performing Organization Address City/[facility] Co de Phone Number [facility] Department [place] [address] * Potassium, whole blood (05/10/2023 12:37 AM ELECTRO OPTICS ENGINEER) Potassium, bld 4.1 3.3 - 4.9 mmol/L [facility] Blood 05/10/2023 12:3 7 AM ELECTRO OPTICS ENGINEER 05/10/2023 12:40 AM ELECTRO OPTICS ENGINEER Anderson Tolentino Jr., TREE LAB BLOOD ORDERABLE S Edited Result - Final Performing Organization Address City/[facility]/ZIP Co de Phone Number [facility] [place] [address] * Type and screen (05/10/2023 12:37 AM ELECTRO OPTICS ENGINEER) ABO Rh A Positive Ellen, indirect Negative [facility] Blood 05/10/2023 12:3 7 AM ELECTRO OPTICS ENGINEER 05/10/2023 12:41 AM ELECTRO OPTICS ENGINEER Narrative [facility] - 05/10/2023 1:24 AM ELECTRO OPTICS ENGINEER Has the patient had Daratumumab or Isatuximab in the past 6 months?->Unknown Faustino Herrera MD LAB BLOOD BANK TEST ORDERA BLES Final Result Performing Organization Address [facility] Co de Phone Number [facility] One [facility] [place] [address] * aPTT (05/10/2023 12:37 AM ELECTRO OPTICS ENGINEER) aPTT 32 28 - 38 sec [facility] Comment: Interpretive Data Heparin therapeutic range: 66.0 - 100.0 seconds. Range based on correlation with therapeutic heparin activity range of 0.3 - 0.7 Units/mL. Current interpretive data was last revised on 2023. Blood 05/10/2023 12:3 7 AM ELECTRO OPTICS ENGINEER 05/10/2023 12:53 AM ELECTRO OPTICS ENGINEER Faustino Herrera MD LAB BLOOD ORDERABLES Final Result [facility] [place] [address] * (ABNORMAL) Protime-INR (05/10/2023 12:37 AM ELECTRO OPTICS ENGINEER) Pathologist [facility] PT 15.8(H) 10.3 - 13.7 sec [facility] INR 1.39(H) 0.90 - 1.20 [facility] Comment: Interpretive data Oral anticoagulant therapeutic ranges: Venous thromboembolism prophylaxis or treatment: 2.0-3.0 CARDIOLOGY Standard range: 2.0-3.0 High-intensity range: 2.5-3.5 Refer to indication-specific guidelines for appropriate target ranges for prosthetic heart valve replacement. Current interpretive data was last revised on 2019. Blood 05/10/2023 12:3 7 AM ELECTRO OPTICS ENGINEER 05/10/2023 12:53 AM ELECTRO OPTICS ENGINEER Faustino Herrera MD LAB BLOOD ORDERABLES Final Result Performing Organization Address City/[facility]/[place] [address] * Phosphorus (05/10/2023 12:37 AM ELECTRO OPTICS ENGINEER) Pathologist [facility] Phosphorus, pl 3.2 2.3 - 4.5 mg/dL [facility] Blood 05/10/2023 12:3 7 AM ELECTRO OPTICS ENGINEER 05/10/2023 12:48 AM ELECTRO OPTICS ENGINEER Faustino Herrera MD LAB BLOOD ORDERABLES Final Result Performing Organization Address City/[facility] [place] [address] * (ABNORMAL) Magnesium (05/10/2023 12:37 AM ELECTRO OPTICS ENGINEER) Pathologist [facility] Magnesium 2.7(H) 1.4 - 2.5 mg/dL [facility] Blood 05/10/2023 12:3 7 AM ELECTRO OPTICS ENGINEER 05/10/2023 12:48 AM ELECTRO OPTICS ENGINEER Faustino Herrera MD LAB BLOOD ORDERABLES Final Result Performing Organization Address [facility] Co de Phone Number [facility] Department [place] [address] * (ABNORMAL) Basic metabolic panel (05/10/2023 12:37 AM ELECTRO OPTICS ENGINEER) [facility] Sodium 134(L) 135 - 145 mmol/L [facility] Potassium, pl 4.1 3.3 - 4.9 mmol/L [facility] Chloride 100 97 - 110 mmol/L [facility] CO2 23 22 - 32 mmol/L [facility] Anion gap 11 2 - 15 mmol/L [facility] BUN 18 6 - 25 mg/dL [facility] Creatinine 0.90 0.80 - 1.30 mg/dL [facility] Glucose 128 70 - 199 mg/dL [facility] Comment: Interpretive Data Fasting glucose >/= [...] 2022. Calcium 9.1 8.5 - 10.3 mg/dL [facility] Blood 05/10/2023 12:3 7 AM ELECTRO OPTICS ENGINEER 05/10/2023 12:48 AM ELECTRO OPTICS ENGINEER Faustino Herrera MD LAB BLOOD ORDERABLES Final Result Performing Organization Address [facility] Co de Phone Number [facility] Department [place] [address] * (ABNORMAL) CBC without differential (05/10/2023 12:37 AM ELECTRO OPTICS ENGINEER) [facility] Signature WBC 18.7(H) 3.8 - 9.9 K/cumm [facility] Hgb 9.9(L) 13.0 - 17.5 g/dL [facility] Comment: Interpretive Data A reference range for this assay has not been established for patients with an unknown legal sex. Please refer to the laboratory test catalog for established sex-specific reference intervals. Current interpretive data was last revised on 2023. Hct 29.9(L) 38.9 - 50.3 % [facility] Comment: Interpretive Data A reference range for this assay has not been established for patients with an unknown legal sex. Please refer to the laboratory test catalog for established sex-specific reference intervals. Current interpretive data was last revised on 2023. Plt 390 150 - 400 K/cumm [facility] MPV 9.4 9.1 - 12.3 fL [facility] RBC 3.35(L) 4.30 - 5.80 M/cumm [facility] Comment: Interpretive Data A reference range for this assay has not been established for patients with an unknown legal sex. Please refer to the laboratory test catalog for established sex-specific reference intervals. Current interpretive data was last revised on 2023. MCV 89.3 81.3 - 96.4 fL [facility] MCH 29.6 27.1 - 33.3 pg [facility] MCHC 33.1 32.3 - 35.7 g/dL [facility] RDW CV 13.2 11.1 - 14.9 % [facility] RDW SD 43.5 35.7 - 48.1 fL [facility] NRBC abs 0.00 0.00 - 0.01 K/cumm [facility] Blood 05/10/2023 12:3 7 AM ELECTRO OPTICS ENGINEER 05/10/2023 12:48 AM ELECTRO OPTICS ENGINEER us Faustino Herrera MD LAB BLOOD ORDERABLES Final Result [facility] Department [place] [address] * POCT glucose (05/10/2023 12:16 AM ELECTRO OPTICS ENGINEER) Glucose, POC 129 70 - 199 mg/dL [facility] Blood 05/10/2023 12:1 6 AM ELECTRO OPTICS ENGINEER 05/10/2023 12:16 AM ELECTRO OPTICS ENGINEER us Faustino Herrera MD LAB POCT ORDERABLES - ROSIE CE Final Result Performing Organization Address [facility] [place] [address] * Oxyhemoglobin, central venous (05/09/2023 11:35 PM ELECTRO OPTICS ENGINEER) Oxyhemoglobin, CV 72.4 % [facility] Comment: Interpretive Data No reference range established. Current interpretive data was last revised 2019. Blood 05/09/2023 11:3 5 PM ELECTRO OPTICS ENGINEER 05/09/2023 11:45 PM ELECTRO OPTICS ENGINEER us Anderson Tolentino Jr., NP LAB BLOOD ORDERABLE S Final Result Performing Organization Address [facility] de Phone Number [facility] [place] [address] * XR Chest 1 View (05/09/2023 9:29 PM ELECTRO OPTICS ENGINEER) Anatomical Region Laterality Modality Body, Chest N/A Computed Radiogr aphy 05/10/2023 8:54 AM ELECTRO OPTICS ENGINEER Impressions 05/10/2023 6:37 PM ELECTRO OPTICS ENGINEER The current study is compared with the prior radiograph dated ??05/08/2023. A right internal jugular central venous catheter terminates in the superior vena cava. ??No interval change in an endovascular stent graft with left subclavian stent. ??The lungs are clear without consolidation or edema. ??No pleural effusion or pneumothorax. ??The cardiomediastinal silhouette is unchanged. Dictated by: Shady Childers MD The radiology attending physician has personally reviewed this study, and had reviewed and/or edited this written report and agrees with it. Electronically signed by: Roldan Harrison M.D. Narrative 05/10/2023 6:37 PM ELECTRO OPTICS ENGINEER EXAMINATION: 1 view chest radiograph Procedure Note Roldan Harrison MD - 05/10/2023 EXAMINATION: 1 view chest radiograph IMPRESSION: The current study is compared with the prior radiograph dated 05/08/2023. A right internal jugular central venous catheter terminates in the superior vena cava. No interval change in an endovascular stent graft with left subclavian stent. The lungs are clear without consolidation or edema. No pleural effusion or pneumothorax. The cardiomediastinal silhouette is unchanged. Dictated by: Shady Childers MD The radiology attending physician has personally reviewed this study, and had reviewed and/or edited this written report and agrees with it. Electronically signed by: Roldan Harrison M.D. Faustino Herrera MD IMG XR PROCEDURES Final Re sult * Potassium, whole blood (05/09/2023 8:16 PM ELECTRO OPTICS ENGINEER) Potassium, bld 4.3 3.3 - 4.9 mmol/L [facility] Blood 05/09/2023 8:16 PM ELECTRO OPTICS ENGINEER 05/09/2023 8:28 PM ELECTRO OPTICS ENGINEER Anderson Tolentino Jr., NP LAB BLOOD ORDERABLE S Final Result [facility] [place] [address] * Lidocaine level (05/09/2023 6:20 PM ELECTRO OPTICS ENGINEER) Lidocaine (Xylocaine) 3.7 1.5 - 5.0 mcg/mL [facility] Blood 05/09/2023 6:20 PM ELECTRO OPTICS ENGINEER 05/09/2023 6:35 PM ELECTRO OPTICS ENGINEER Faustino Herrera MD LAB BLOOD ORDERABLES Final Result [facility] [place] [address] * Critical Care (05/09/2023 3:58 PM ELECTRO OPTICS ENGINEER) Narrative Dalton Locke MD - 05/09/2023 3:58 PM ELECTRO OPTICS ENGINEER Dalton Locke MD ? 05/12/2023 ??4:14 PM Critical Care Performed by: Dalton Locke MD Authorized by: Dalton Locke MD ?? CRITICAL CARE: ??Team: ??83 CTICU ??Shift: [...] plan with the ICU team and other medical/sap security consultant staff, making frequent assessments and decisions [...] life-threatening deterioration of the following conditions: ? Encephalopathy/altered mental status ?? Aortic dissection/aneurysm ?? Concern for Spinal Cord Ischemia Fluid Overload ?? Pneumonia ??This time was spent by me doing the following: ? Administration of sedatives and psychotropic medications, Acute pain control and Lumbar drain management ?? Initiation/active titration of vasoactive medications and Serial neurovascular exams ?? Active and frequent reassessment of respiratory status and oxygen requirements and Optiflow support ?? Active and frequent monitoring of intake/output and volumen status ?? Active diuresis ?? I spent time reviewing and interpreting data from bedside monitors, laboratory results, and imaging, I spent time discussing the management of this critically ill patient with consultants and the medical staff and I spent time documenting in the medical record us Dalton Locke MD IN CLINIC/BEDSIDE ORDERABLES Final Result * Potassium, whole blood (05/09/2023 12:54 PM ELECTRO OPTICS ENGINEER) Potassium, bld 4.2 3.3 - 4.9 mmol/L [facility] Blood 05/09/2023 12:5 4 PM ELECTRO OPTICS ENGINEER 05/09/2023 1:03 PM ELECTRO OPTICS ENGINEER Anderson Tolentino Jr., TREE LAB BLOOD ORDERABLE S Final Result Performing Organization Address City/[facility]/ZIP Co de Phone Number [facility] Department [place] [address] * Hepatic function panel (05/09/2023 12:54 PM ELECTRO OPTICS ENGINEER) [facility] Bilirubin, total 0.9 0.1 - 1.2 mg/dL [facility] Bilirubin, direct 0.3 0.1 - 0.3 mg/dL [facility] Protein, pl 8.3 6.5 - 8.5 g/dL [facility] Albumin 4.1 3.5 - 5.0 g/dL [facility] Alk phos 93 40 - 130 Units/L [facility] ALT 30 7 - 55 Units/L [facility] AST 35 10 - 50 Units/L [facility] Blood 05/09/2023 12:5 4 PM ELECTRO OPTICS ENGINEER 05/09/2023 1:07 PM ELECTRO OPTICS ENGINEER Faustino Herrera MD LAB BLOOD ORDERABLES Final Result [facility] [place] [address] * Lipase (05/09/2023 12:54 PM ELECTRO OPTICS ENGINEER) Pathologist [facility] Lipase 28 10 - 99 Units/L [facility] Blood 05/09/2023 12:5 4 PM ELECTRO OPTICS ENGINEER 05/09/2023 1:07 PM ELECTRO OPTICS ENGINEER Faustino Herrera MD LAB BLOOD ORDERABLES Final Result [facility] Department of Laboratories [place], [place] [id number] * US Vein Duplex Lower Extremity Bilateral Complete (05/09/2023 11:23 AM ELECTRO OPTICS ENGINEER) Anatomical Region Laterality Modality Vascular Bilateral Ultrasound 05/09/2023 9:31 AM ELECTRO OPTICS ENGINEER Narrative 05/09/2023 9:07 PM ELECTRO OPTICS ENGINEER [facility] [employer] - Department of Vascular Surgery, Vascular Laboratory [address] [place] [id number] Lower Extremity Venous Ultrasound Report Patient Name: ERIBERTO CHAU : 1990 (32y 11m) Study Date: 05/09/2023 9:31:37 AM Gender: M Tech: NC Location: [id number] Ref Provider: FAUSTINO HERRERA ?Quality: Adequate Order Provider: FAUSTINO HERRERA PROCEDURES: Vascular Report: Venous Duplex imaging was performed bilaterally in the lower extremities. The common femoral, femoral, popliteal, posterior tibial, peroneal veins were evaluated for patency, spontaneity and phasicity with Doppler, compression and augmentation maneuvers. Great saphenous vein proximal at the junction was evaluated with compression maneuvers. INDICATIONS: post-op pain and fever r/o DVT - FINDINGS: Performing Parts Lister: Cheryle Soliz RVT, APPLE. Bilateral: Venous Doppler signals in the bilateral [...] above. Electronically Signed By: Pepe Gardner MD [facility] 2023-05-09 21:07:13 ELECTRO OPTICS ENGINEER Procedure Note Pepe Gardner MD - 05/09/2023 [facility] - Department of Vascular Surgery,Vascular Laboratory [address] [place] [address] Lower Extremity Venous Ultrasound Report Patient Name: ERIBERTO CHAU : 1990 (32y 11m) Study Date: 05/09/2023 9:31:37 AM Gender: M Tech: NC Location: [id number] Ref Provider: FAUSTINO HERRERA Quality: Adequate Order Provider: FAUSTINO HERRERA PROCEDURES: Vascular Report: Venous Duplex imaging was performed bilaterally in the lower extremities.The common femoral, femoral, popliteal, posterior tibial, peroneal veins wereevaluated for patency, spontaneity and phasicity with Doppler, compression and augmentationmaneuvers. Great saphenous vein proximal at the junction was evaluated with compressionmaneuvers. INDICATIONS: post-op pain and fever r/o DVT - FINDINGS: Performing Parts Lister: Cheryle Soliz RVT, RDMS. Bilateral: Venous Doppler [...] above. Electronically Signed By: Pepe Gardner MD [facility] 2023-05-09 21:07:13 ELECTRO OPTICS ENGINEER Faustino Herrera MD IMG US PROCEDURES Final Re sult * ECG 12 lead (05/09/2023 9:22 AM ELECTRO OPTICS ENGINEER) Pathologist [facility] Ventricular Rate EKG/Min 88 BPM [facility] Atrial Rate 88 BPM [facility] AL-Interval (MSEC) 154 ms [facility] QRS-Interval (MSEC) 96 ms [facility] QT-Interval (MSEC) 368 ms [facility] QTc 445 ms [facility] R [place] 189 degrees [facility] T [place] 146 degrees [facility] Diagnosis Normal sinus rhythm Suspect limb lead reversal,inter pretation assumes reversal T wave abnormality, consider lateral ischemia Abnormal ECG When compared with ECG of 07-MAY-2023 18:46, (unconfirmed) leads misplaced Nonspecific T wave abnormality has replaced inverted T waves in Inferior leads Confirmed by ROSY AMARO M.D ([id number]) on 05/10/2023 9:41:27 AM [facility] 05/09/2023 9:22 AM ELECTRO OPTICS ENGINEER 05/10/2023 9:41 AM ELECTRO OPTICS ENGINEER Marina Cordova NP ECG ORDERABLES Final Resu lt [facility] * Potassium, whole blood (05/09/2023 8:04 AM ELECTRO OPTICS ENGINEER) [facility] Potassium, bld 4.1 3.3 - 4.9 mmol/L [facility] Blood 05/09/2023 8:04 AM ELECTRO OPTICS ENGINEER 05/09/2023 8:12 AM ELECTRO OPTICS ENGINEER Anderson Tolentino Jr. SECTION CUTTER LAB BLOOD ORDERABLE S Final Result [facility] [place] [address] * (ABNORMAL) POC Blood Gas and Chemistries, Arterial - (05/09/2023 6:22 AM ELECTRO OPTICS ENGINEER) pH, Art POC 7.36 7.35 - 7.45 [facility] pCO2, Art POC 35 35 - 45 mmHg [facility] pO2, Art POC 103 83 - 108 mmHg [facility] Na, POC 139 135 - 145 mmol/L [facility] K POC 4.4 3.3 - 4.9 mmol/L [facility] Comment: Interpretive Data This method is not able to assess for hemolysis, which may falsely increase potassium concentrations. If further testing is needed to evaluate this result, consider in-laboratory plasma potassium. Current Interpretive Data was last revised on 2022. Cl, POC 109 97 - 110 mmol/L [facility] Ionized Ca, POC 4.82 4.50 - 5.10 mg/dL [facility] Glucose, POC 136 70 - 199 mg/dL [facility] Lactate, POC 0.5(L) 0.7 - 2.2 mmol/L [facility] SO2 (natalia) arterial 99(H) 90 - 95 % [facility] Base excess, POC -5.1 mmol/L [facility] HCO3, Art POC 20 20 - 30 mmol/L [facility] Hct, POC 31.0(L) 41.4 - 51.6 % [facility] O2 Sat, Art POC (Calc) 98 % [facility] Total Hb, POC 10.2(L) 13.8 - 17.2 g/dL [facility] Blood 05/09/2023 6:22 AM ELECTRO OPTICS ENGINEER 05/09/2023 6:22 AM ELECTRO OPTICS ENGINEER us Faustino Herrera MD LAB POCT ORDERABLES - ROSIE CE Final Result [facility] One [facility] Department [place] [address] * Potassium, whole blood (05/09/2023 12:36 AM ELECTRO OPTICS ENGINEER) Pathologist [facility] Potassium, bld 3.9 3.3 - 4.9 mmol/L [facility] Blood 05/09/2023 12:3 6 AM ELECTRO OPTICS ENGINEER 05/09/2023 12:43 AM ELECTRO OPTICS ENGINEER us Anderson Tolentino Jr., TREE LAB BLOOD ORDERABLE S Final Result Performing Organization Address [facility] de Phone Number [facility] Department [place] [address] * (ABNORMAL) Blood gas, arterial (05/09/2023 12:36 AM ELECTRO OPTICS ENGINEER) Pathologist [facility] pH, Art 7.39 7.35 - 7.45 [facility] PCO2, Arterial 29(L) 35 - 45 mmHg [facility] PO2, Arterial 108 83 - 108 mmHg [facility] HCO3 Art (Calculated) 18(L) 20 - 30 mmol/L [facility] BE, art -6 mmol/L [facility] Comment: Interpretive Data No Reference Range Established Current Interpretive Data was last revised on 2017 O2 Sat Art (Measured) 98(H) 90 - 95 % [facility] Blood 05/09/2023 12:3 6 AM ELECTRO OPTICS ENGINEER 05/09/2023 12:43 AM ELECTRO OPTICS ENGINEER us Faustino Herrera MD LAB BLOOD ORDERABLES Final Result Performing Organization Address [facility] de Phone Number [facility] Department [place] [address] * eGFR (05/09/2023 12:35 AM ELECTRO OPTICS ENGINEER) [facility] eGFR >90 >=60 mL/min/1. 73 m2 [facility] Comment: Interpretive Data Reference Interval Normal [...] interpretive data was last reviewed 2021. Blood 05/09/2023 12:3 5 AM ELECTRO OPTICS ENGINEER 05/09/2023 12:56 AM ELECTRO OPTICS ENGINEER us Alonzo Duncan MD LAB BLOOD ORDERABLES [facility] al Result Performing Organization Address City/State/[facility] Co de Phone Number [facility] Department [place] [address] * (ABNORMAL) Triglycerides (05/09/2023 12:35 AM ELECTRO OPTICS ENGINEER) Pathologist [facility] Triglycerides 533(H) <=149 mg/dL [facility] Comment: Hemolyzed; result may be falsely elevated Interpretive Data Ages < or = 9 [...] Data was last revised on 2018. Blood 05/09/2023 12:3 5 AM ELECTRO OPTICS ENGINEER 05/09/2023 12:56 AM ELECTRO OPTICS ENGINEER Faustino Herrera MD LAB BLOOD ORDERABLES Final Result Performing Organization Address [facility] de Phone Number [facility] [place] [place] [address] * aPTT (05/09/2023 12:35 AM ELECTRO OPTICS ENGINEER) aPTT 33 28 - 38 sec [facility] Comment: Interpretive Data Heparin therapeutic range: 66.0 - 100.0 seconds. Range based on correlation with therapeutic heparin activity range of 0.3 - 0.7 Units/mL. Current interpretive data was last revised on 2023. Blood 05/09/2023 12:3 5 AM ELECTRO OPTICS ENGINEER 05/09/2023 12:54 AM ELECTRO OPTICS ENGINEER Faustino Herrera MD LAB BLOOD ORDERABLES Final Result Performing Organization Address [facility] [place] [address] * (ABNORMAL) Protime-INR (05/09/2023 12:35 AM ELECTRO OPTICS ENGINEER) PT 14.3(H) 10.3 - 13.7 sec [facility] INR 1.25(H) 0.90 - 1.20 [facility] Comment: Interpretive data Oral anticoagulant therapeutic ranges: Venous thromboembolism prophylaxis or treatment: 2.0-3.0 CARDIOLOGY Standard range: 2.0-3.0 High-intensity range: 2.5-3.5 Refer to indication-specific guidelines for appropriate target ranges for prosthetic heart valve replacement. Current interpretive data was last revised on 2019. Blood 05/09/2023 12:3 5 AM ELECTRO OPTICS ENGINEER 05/09/2023 12:54 AM ELECTRO OPTICS ENGINEER Faustino Herrera MD LAB BLOOD ORDERABLES Final Result Performing Organization Address [facility] de Phone Number [facility] [place] [address] * Phosphorus (05/09/2023 12:35 AM ELECTRO OPTICS ENGINEER) Pathologist [facility] Phosphorus, pl 2.8 2.3 - 4.5 mg/dL [facility] Comment:Hemolyzed; result ma y be falsely elevated Blood 05/09/2023 12:3 5 AM ELECTRO OPTICS ENGINEER 05/09/2023 12:56 AM ELECTRO OPTICS ENGINEER Faustino Herrera MD LAB BLOOD ORDERABLES Final Result Performing Organization Address [facility] de Phone Number [facility] [place] [address] * (ABNORMAL) Magnesium (05/09/2023 12:35 AM ELECTRO OPTICS ENGINEER) [facility] Magnesium 2.7(H) 1.4 - 2.5 mg/dL [facility] Blood 05/09/2023 12:3 5 AM ELECTRO OPTICS ENGINEER 05/09/2023 12:56 AM ELECTRO OPTICS ENGINEER Faustino Herrera MD LAB BLOOD ORDERABLES Final Result Performing Organization Address [facility] de Phone Number [facility] [place] [address] * (ABNORMAL) Basic metabolic panel (05/09/2023 12:35 AM ELECTRO OPTICS ENGINEER) Pathologist [facility] Sodium 134(L) 135 - 145 mmol/L [facility] Potassium, pl See Comment 3.3 - 4.9 mmol/L [facility] Comment:Credited; Hemolyzed Specimen Chloride 104 97 - 110 mmol/L [facility] CO2 20(L) 22 - 32 mmol/L [facility] Anion gap 10 2 - 15 mmol/L [facility] BUN 17 6 - 25 mg/dL [facility] Creatinine 0.86 0.80 - 1.30 mg/dL [facility] Glucose 142 70 - 199 mg/dL [facility] Comment: Interpretive Data Fasting glucose >/= [...] 2022. Calcium 8.5 8.5 - 10.3 mg/dL [facility] Blood 05/09/2023 12:3 5 AM ELECTRO OPTICS ENGINEER 05/09/2023 12:56 AM ELECTRO OPTICS ENGINEER Faustino Herrera MD LAB BLOOD ORDERABLES Final Result [facility] Department [place] [address] * (ABNORMAL) CBC without differential (05/09/2023 12:35 AM ELECTRO OPTICS ENGINEER) [facility] WBC 14.9(H) 3.8 - 9.9 K/cumm [facility] Hgb 10.1(L) 13.0 - 17.5 g/dL [facility] Comment: Interpretive Data A reference range for this assay has not been established for patients with an unknown legal sex. Please refer to the laboratory test catalog for established sex-specific reference intervals. Current interpretive data was last revised on 2023. Hct 30.1(L) 38.9 - 50.3 % [facility] Comment: Interpretive Data A reference range for this assay has not been established for patients with an unknown legal sex. Please refer to the laboratory test catalog for established sex-specific reference intervals. Current interpretive data was last revised on 2023. Plt 274 150 - 400 K/cumm [facility] MPV 9.4 9.1 - 12.3 fL [facility] RBC 3.32(L) 4.30 - 5.80 M/cumm [facility] Comment: Interpretive Data A reference range for this assay has not been established for patients with an unknown legal sex. Please refer to the laboratory test catalog for established sex-specific reference intervals. Current interpretive data was last revised on 2023. MCV 90.7 81.3 - 96.4 fL [facility] MCH 30.4 27.1 - 33.3 pg [facility] MCHC 33.6 32.3 - 35.7 g/dL [facility] RDW CV 13.2 11.1 - 14.9 % [facility] RDW SD 43.9 35.7 - 48.1 fL [facility] NRBC abs 0.02(H) 0.00 - 0.01 K/cumm [facility] Blood 05/09/2023 12:3 5 AM ELECTRO OPTICS ENGINEER 05/09/2023 12:56 AM ELECTRO OPTICS ENGINEER Faustino Herrera MD LAB BLOOD ORDERABLES Final Result [facility] Department [place] [address] * XR Chest 1 View (05/08/2023 7:59 PM ELECTRO OPTICS ENGINEER) Anatomical Region Laterality Modality Body, Chest N/A Digital Radiogra phy 05/09/2023 8:48 AM ELECTRO OPTICS ENGINEER Impressions 05/09/2023 11:38 AM ELECTRO OPTICS ENGINEER The current study is compared with the prior radiograph dated 05/07/2023. 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 ??Right internal jugular central venous catheter terminates at the superior cavoatrial junction. The cardiomediastinal silhouette is stable. ??Small lung volumes. ??No consolidation or pulmonary edema. ??No pleural effusion, though the right costophrenic angle is excluded from the [id number]. ??No pneumothorax. ?? Dictated by: Chris Turner MD The radiology attending physician has personally reviewed this study, and had reviewed and/or edited this written report and agrees with it. Electronically signed by: Hipolito Mobley M.D. Narrative 05/09/2023 11:38 AM ELECTRO OPTICS ENGINEER EXAMINATION: 1 view chest radiograph Procedure Note Hipolito Mobley MD - 05/09/2023 EXAMINATION: 1 view chest radiograph IMPRESSION: The current study is compared with the prior radiograph dated 05/07/2023. Redemonstrated thoracic aortic stent graft with left subclavian component. Right internal jugular central venous catheter terminates at the superior cavoatrial junction. The cardiomediastinal silhouette is stable. Small lung volumes. No consolidation or pulmonary edema. No pleural effusion, though the right costophrenic angle is excluded from the [id number]. No pneumothorax. Dictated by: Chris Turner MD The radiology attending physician has personally reviewed this study, and had reviewed and/or edited this written report and agrees with it. Electronically signed by: Hipolito Mobley M.D. Faustino Herrera MD IMG XR PROCEDURES Final Re sult * (ABNORMAL) POC Blood Gas and Chemistries, Arterial - (05/08/2023 7:25 PM ELECTRO OPTICS ENGINEER) [facility] pH, Art POC 7.44 7.35 - 7.45 [facility] pCO2, Art POC 28(L) 35 - 45 mmHg [facility] pO2, Art POC 83 83 - 108 mmHg [facility] Na, POC 135 135 - 145 mmol/L [facility] K POC 4.0 3.3 - 4.9 mmol/L [facility] Comment: Interpretive Data This method is not able to assess for hemolysis, which may falsely increase potassium concentrations. If further testing is needed to evaluate this result, consider in-laboratory plasma potassium. Current Interpretive Data was last revised on 2022. Cl, POC 106 97 - 110 mmol/L [facility] Ionized Ca, POC 4.58 4.50 - 5.10 mg/dL [facility] Glucose, POC 143 70 - 199 mg/dL [facility] Lactate, POC 0.8 0.7 - 2.2 mmol/L [facility] SO2 (natalia) arterial 98(H) 90 - 95 % [facility] Base excess, POC -4.1 mmol/L [facility] HCO3, Art POC 19(L) 20 - 30 mmol/L [facility] Hct, POC 34.0(L) 41.4 - 51.6 % [facility] O2 Sat, Art POC (Calc) 97 % [facility] Total Hb, POC 11.2(L) 13.8 - 17.2 g/dL [facility] Blood 05/08/2023 7:25 PM ELECTRO OPTICS ENGINEER 05/08/2023 7:25 PM ELECTRO OPTICS ENGINEER Faustino Herrera MD LAB POCT ORDERABLES - ROSIE CE Final Result [facility] Department [place] [employer] [place] [address] * Potassium, whole blood (05/08/2023 5:39 PM ELECTRO OPTICS ENGINEER) [facility] Potassium, bld 4.1 3.3 - 4.9 mmol/L [facility] Blood 05/08/2023 5:39 PM ELECTRO OPTICS ENGINEER 05/08/2023 5:49 PM ELECTRO OPTICS ENGINEER us Anderson Tolentino Jr., TREE LAB BLOOD ORDERABLE S Final Result [facility] [place] [address] * Lidocaine level (05/08/2023 5:39 PM ELECTRO OPTICS ENGINEER) Pathologist [facility] Lidocaine (Xylocaine) 4.6 1.5 - 5.0 mcg/mL [facility] Blood 05/08/2023 5:39 PM ELECTRO OPTICS ENGINEER 05/08/2023 5:49 PM ELECTRO OPTICS ENGINEER Narrative JAIRON ERWIN - 05/08/2023 6:23 PM ELECTRO OPTICS ENGINEER Draw 24 hours after infusion started. us Faustino Herrera MD LAB BLOOD ORDERABLES Final Result [facility] [place] [address] * Critical Care (05/08/2023 2:53 PM ELECTRO OPTICS ENGINEER) Narrative Dalton Locke MD - 05/08/2023 2:53 PM ELECTRO OPTICS ENGINEER Dalton Locke MD ? 05/08/2023 ??2:57 PM Critical Care Performed by: Dalton Locke MD Authorized by: Dalton Locke MD ?? CRITICAL CARE: ??Team: ??83 CTICU ??Shift: [...] plan with the ICU team and other medical/sap security consultant staff, making frequent assessments and decisions [...] conditions: ? Acute pain/acute postoperative pain ?? Aortic dissection/aneurysm ?? Concern for Spinal Cord Ischemia ?? Acute hypoxic respiratory failure ?? Pneumonia ??This time was spent by me doing the following: ? Lumbar drain management, Frequent neurologic exams and Acute pain control ?? Initiation/active titration of vasoactive medications and Serial neurovascular exams ?? Active and frequent reassessment of respiratory status and oxygen requirements and Optiflow support ?? Active diuresis and Active repletion of electrolytes ?? Empiric broad coverage antibiotics ?? I spent time reviewing and interpreting data from bedside monitors, laboratory results, and imaging, I spent time discussing the management of this critically ill patient with consultants and the medical staff and I spent time documenting in the medical record Dalton Locke MD IN CLINIC/BEDSIDE ORDERABLES Edited Result - Final * Potassium, whole blood (05/08/2023 11:44 AM ELECTRO OPTICS ENGINEER) Potassium, bld 4.5 3.3 - 4.9 mmol/L [facility] Comment:Hemolyzed; results m ay be falsely elevated. Blood 05/08/2023 11:4 4 AM ELECTRO OPTICS ENGINEER 05/08/2023 12:02 PM ELECTRO OPTICS ENGINEER Anderson Tolentino Jr., TREE LAB BLOOD ORDERABLE S Final Result Performing Organization Address [facility] Co de Phone Number [facility] Department [place] [address] * Potassium, whole blood (05/08/2023 8:02 AM ELECTRO OPTICS ENGINEER) Potassium, bld 4.1 3.3 - 4.9 mmol/L [facility] Blood 05/08/2023 8:02 AM ELECTRO OPTICS ENGINEER 05/08/2023 8:09 AM ELECTRO OPTICS ENGINEER Anderson Tolentino Jr., NP LAB BLOOD ORDERABLE S Final Result [facility] [place] [employer] [place] [address] * (ABNORMAL) Blood gas, arterial (05/08/2023 8:02 AM ELECTRO OPTICS ENGINEER) pH, Art 7.36 7.35 - 7.45 [facility] PCO2, Arterial 34(L) 35 - 45 mmHg [facility] PO2, Arterial 89 83 - 108 mmHg [facility] HCO3 Art (Calculated) 19(L) 20 - 30 mmol/L [facility] BE, art -6 mmol/L [facility] Comment: Interpretive Data No Reference Range Established Current Interpretive Data was last revised on 2017 O2 Sat Art (Measured) 97(H) 90 - 95 % [facility] Blood 05/08/2023 8:02 AM ELECTRO OPTICS ENGINEER 05/08/2023 8:09 AM ELECTRO OPTICS ENGINEER us Faustino Herrera MD LAB BLOOD ORDERABLES Final Result [facility] Department [place] [address] * eGFR (05/08/2023 1:08 AM ELECTRO OPTICS ENGINEER) eGFR >90 >=60 mL/min/1. 73 m2 [facility] [...] interpretive data was last reviewed 2021. Blood 05/08/2023 1:08 AM ELECTRO OPTICS ENGINEER 05/08/2023 1:24 AM ELECTRO OPTICS ENGINEER us Alonzo Duncan MD LAB BLOOD ORDERABLES Fin al Result [facility] [place] [address] * (ABNORMAL) Blood gas, arterial (05/08/2023 1:08 AM ELECTRO OPTICS ENGINEER) pH, Art 7.37 7.35 - 7.45 [facility] PCO2, Arterial 32(L) 35 - 45 mmHg [facility] PO2, Arterial 151(H) 83 - 108 mmHg [facility] HCO3 Art (Calculated) 19(L) 20 - 30 mmol/L [facility] BE, art -6 mmol/L [facility] Comment: Interpretive Data No Reference Range Established Current Interpretive Data was last revised on 2017 O2 Sat Art (Measured) 99(H) 90 - 95 % [facility] Blood 05/08/2023 1:08 AM ELECTRO OPTICS ENGINEER 05/08/2023 1:21 AM ELECTRO OPTICS ENGINEER us Faustino Herrera MD LAB BLOOD ORDERABLES Final Result Performing Organization Address [facility] [place] [address] * Potassium, whole blood (05/08/2023 1:08 AM ELECTRO OPTICS ENGINEER) Potassium, bld 4.8 3.3 - 4.9 mmol/L [facility] Blood 05/08/2023 1:08 AM ELECTRO OPTICS ENGINEER 05/08/2023 1:21 AM ELECTRO OPTICS ENGINEER us Anderson Tolentino Jr., SECTION CUTTER LAB BLOOD ORDERABLE S Final Result Performing Organization Address City/[facility] Co de Phone Number [facility] [place] [address] * aPTT (05/08/2023 1:08 AM ELECTRO OPTICS ENGINEER) aPTT 35 28 - 38 sec [facility] Comment: Interpretive Data Heparin therapeutic range: 66.0 - 100.0 seconds. Range based on correlation with therapeutic heparin activity range of 0.3 - 0.7 Units/mL. Current interpretive data was last revised on 2023. Blood 05/08/2023 1:08 AM ELECTRO OPTICS ENGINEER 05/08/2023 1:40 AM ELECTRO OPTICS ENGINEER Faustino Herrera MD LAB BLOOD ORDERABLES Final Result Performing Organization Address [facility] de Phone Number [facility] [place] [address] * (ABNORMAL) Protime-INR (05/08/2023 1:08 AM ELECTRO OPTICS ENGINEER) Pathologist [facility] PT 14.2(H) 10.3 - 13.7 sec [facility] INR 1.25(H) 0.90 - 1.20 [facility] Comment: Interpretive data Oral anticoagulant therapeutic ranges: Venous thromboembolism prophylaxis or treatment: 2.0-3.0 CARDIOLOGY Standard range: 2.0-3.0 High-intensity range: 2.5-3.5 Refer to indication-specific guidelines for appropriate target ranges for prosthetic heart valve replacement. Current interpretive data was last revised on 2019. Blood 05/08/2023 1:08 AM ELECTRO OPTICS ENGINEER 05/08/2023 1:40 AM ELECTRO OPTICS ENGINEER Faustino Herrera MD LAB BLOOD ORDERABLES Final Result Performing Organization Address City/[facility] de Phone Number [facility] One [facility] [place] [employer] [place] [address] * Phosphorus (05/08/2023 1:08 AM ELECTRO OPTICS ENGINEER) Phosphorus, pl 3.6 2.3 - 4.5 mg/dL [facility] Blood 05/08/2023 1:08 AM ELECTRO OPTICS ENGINEER 05/08/2023 1:24 AM ELECTRO OPTICS ENGINEER Faustino Herrera MD LAB BLOOD ORDERABLES Final Result Performing Organization Address City/[facility]/ZIP Co de Phone Number [facility] [place] [address] * (ABNORMAL) Magnesium (05/08/2023 1:08 AM ELECTRO OPTICS ENGINEER) [facility] Magnesium 2.6(H) 1.4 - 2.5 mg/dL [facility] Blood 05/08/2023 1:08 AM ELECTRO OPTICS ENGINEER 05/08/2023 1:24 AM ELECTRO OPTICS ENGINEER Faustino Herrera MD LAB BLOOD ORDERABLES Final Result Performing Organization Address [facility] de Phone Number [facility] [place] [address] * (ABNORMAL) Basic metabolic panel (05/08/2023 1:08 AM ELECTRO OPTICS ENGINEER) [facility] Sodium 134(L) 135 - 145 mmol/L [facility] Potassium, pl 4.9 3.3 - 4.9 mmol/L [facility] Chloride 104 97 - 110 mmol/L [facility] CO2 19(L) 22 - 32 mmol/L [facility] Anion gap 11 2 - 15 mmol/L [facility] BUN 18 6 - 25 mg/dL [facility] Creatinine 1.04 0.80 - 1.30 mg/dL [facility] Glucose 114 70 - 199 mg/dL [facility] Comment: Interpretive Data Fasting glucose >/= [...] 2022. Calcium 8.8 8.5 - 10.3 mg/dL [facility] Blood 05/08/2023 1:08 AM ELECTRO OPTICS ENGINEER 05/08/2023 1:24 AM ELECTRO OPTICS ENGINEER Faustino Herrera MD LAB BLOOD ORDERABLES Final Result [facility] Department [place] [address] * (ABNORMAL) CBC without differential (05/08/2023 1:08 AM ELECTRO OPTICS ENGINEER) WBC 14.2(H) 3.8 - 9.9 K/cumm [facility] Hgb 9.9(L) 13.0 - 17.5 g/dL [facility] Comment: Interpretive Data A reference range for this assay has not been established for patients with an unknown legal sex. Please refer to the laboratory test catalog for established sex-specific reference intervals. Current interpretive data was last revised on 2023. Hct 29.9(L) 38.9 - 50.3 % [facility] Comment: Interpretive Data A reference range for this assay has not been established for patients with an unknown legal sex. Please refer to the laboratory test catalog for established sex-specific reference intervals. Current interpretive data was last revised on 2023. Plt 298 150 - 400 K/cumm [facility] MPV 9.6 9.1 - 12.3 fL [facility] RBC 3.29(L) 4.30 - 5.80 M/cumm [facility] Comment: Interpretive Data A reference range for this assay has not been established for patients with an unknown legal sex. Please refer to the laboratory test catalog for established sex-specific reference intervals. Current interpretive data was last revised on 2023. MCV 90.9 81.3 - 96.4 fL [facility] MCH 30.1 27.1 - 33.3 pg [facility] MCHC 33.1 32.3 - 35.7 g/dL [facility] RDW CV 13.3 11.1 - 14.9 % [facility] RDW SD 45.0 35.7 - 48.1 fL [facility] NRBC abs 0.00 0.00 - 0.01 K/cumm [facility] Blood 05/08/2023 1:08 AM ELECTRO OPTICS ENGINEER 05/08/2023 1:24 AM ELECTRO OPTICS ENGINEER Faustino Herrera MD LAB BLOOD ORDERABLES Final Result [facility] One [facility] Department [place] [address] * (ABNORMAL) POC Blood Gas and Chemistries, Arterial - (05/07/2023 8:40 PM ELECTRO OPTICS ENGINEER) pH, Art POC 7.34(L) 7.35 - 7.45 [facility] pCO2, Art POC 38 35 - 45 mmHg [facility] pO2, Art POC 79(L) 83 - 108 mmHg [facility] Na, POC 134(L) 135 - 145 mmol/L [facility] K POC 4.1 3.3 - 4.9 mmol/L [facility] Comment: Interpretive Data This method is not able to assess for hemolysis, which may falsely increase potassium concentrations. If further testing is needed to evaluate this result, consider in-laboratory plasma potassium. Current Interpretive Data was last revised on 2022. Cl, POC 104 97 - 110 mmol/L [facility] Ionized Ca, POC 4.92 4.50 - 5.10 mg/dL [facility] Glucose, POC 118 70 - 199 mg/dL [facility] Lactate, POC 0.6(L) 0.7 - 2.2 mmol/L [facility] SO2 (natalia) arterial 96(H) 90 - 95 % [facility] Base excess, POC -4.8 mmol/L [facility] [facility] H[facility]3, Art POC 20 20 - 30 mmol/L [facility] Hct, POC 36.0(L) 41.4 - 51.6 % [facility] O2 Sat, Art POC (Calc) 95 % [facility] Total Hb, POC 11.9(L) 13.8 - 17.2 g/dL [facility] Blood 05/07/2023 8:40 PM ELECTRO OPTICS ENGINEER 05/07/2023 8:40 PM ELECTRO OPTICS ENGINEER Faustino Herrera MD LAB POCT ORDERABLES - ROSIE CE Final Result Performing Organization Address [facility] de Phone Number JAIRON [facility] [place] [address] * Troponin I high-sensitivity 2-hour (05/07/2023 8:36 PM ELECTRO OPTICS ENGINEER) Trop I hs 27 <=35 ng/L [facility] Comment: Interpretive Data For further hscTnI resources including the diagnostic algorithm and an aid in interpretation, copy and paste this link: https://bjhlab.testcatalog.org/show/hsTrop-[email or web address] Current Interpretive Data last revised 2019. Trop I hs delta -2 ng/L [facility] Trop I hs interp Insignificant [facility] Blood 05/07/2023 8:36 PM ELECTRO OPTICS ENGINEER 05/07/2023 8:52 PM ELECTRO OPTICS ENGINEER Faustino Herrera MD LAB BLOOD ORDERABLES Final Result Performing Organization Address [facility] Co de Phone Number [facility] [place] [address] * XR Chest 1 View (05/07/2023 8:26 PM ELECTRO OPTICS ENGINEER) Anatomical Region Laterality Modality Body, Chest N/A Computed Radiogr aphy 05/08/2023 8:14 AM ELECTRO OPTICS ENGINEER Impressions 05/08/2023 8:14 AM ELECTRO OPTICS ENGINEER Comparison is made to radiograph of 05/06/2023 at 10:05 PM 1. Portable chest radiograph 05/07/2023 at 4:02 PM: Endovascular stent graft throughout the thoracic aorta and descending aorta appears unchanged. There is also a short segment stent in the left subclavian artery. Interval removal of the endotracheal tube. The tip of the right internal jugular central venous catheter projects over the superior cavoatrial junction. Stable mild enlargement the cardiac silhouette. The previous airspace opacity in the left upper lobe has resolved in the interval. Minimal subsegmental atelectasis in lung bases. Remainder of lungs are clear. 2. Anteroposterior view chest radiograph 05/07/2023 at 8:21 PM: The patient is rotated towards the left. Given that the there is no significant change of the cardiomediastinal silhouette. Slight increase atelectasis in left lower lobe. Remainder also stable. Electronically signed by: Aaron Schafer M.D. Narrative 05/08/2023 8:14 AM ELECTRO OPTICS ENGINEER EXAMINATION: 2 serial 1 view chest radiograph Procedure Note Aaron Schafer MD - 05/08/2023 EXAMINATION: 2 serial 1 view chest radiograph IMPRESSION: Comparison is made to radiograph of 05/06/2023 at 10:05 PM 1. Portable chest radiograph 05/07/2023 at 4:02 PM: Endovascular stent graft throughout the thoracic aorta and descending aorta appears unchanged. There is also a short segment stent in the left subclavian artery. Interval removal of the endotracheal tube. The tip of the right internal jugular central venous catheter projects over the superior cavoatrial junction. Stable mild enlargement the cardiac silhouette. The previous airspace opacity in the left upper lobe has resolved in the interval. Minimal subsegmental atelectasis in lung bases. Remainder of lungs are clear. 2. Anteroposterior view chest radiograph 05/07/2023 at 8:21 PM: The patient is rotated towards the left. Given that the there is no significant change of the cardiomediastinal silhouette. Slight increase atelectasis in left lower lobe. Remainder also stable. Electronically signed by: Aaron Schafer M.D. Sheila BRADFORD IMG XR PROCEDURES F inal Result * ECG 12 lead (05/07/2023 6:46 PM ELECTRO OPTICS ENGINEER) Ventricular Rate EKG/Min 80 BPM [facility] Atrial Rate 80 BPM [facility] AL-Interval (MSEC) 158 ms [facility] QRS-Interval (MSEC) 94 ms [facility] QT-Interval (MSEC) 372 ms [facility] QTc 429 ms [facility] P [place] 33 degrees [facility] R [place] -4 degrees [facility] T [place] -62 degrees [facility] Diagnosis Normal sinus rhythm Possible Left atrial enlargement Left ventricular hypertrophy with repolarization abnormality ( R in aVL , Keith product ) Abnormal ECG When compared with ECG of 05-MAY-2023 18:56, (unconfirmed) No significant change was found Confirmed by ROSY AMARO M.D ([id number]) on 05/09/2023 9:45:33 AM [facility] 05/07/2023 6:46 PM ELECTRO OPTICS ENGINEER 05/09/2023 9:45 AM ELECTRO OPTICS ENGINEER Faustino Herrera MD ECG ORDERABLES Final Resu lt Performing Organization Address City/[facility] Co de Phone Number [facility] * Troponin I high-sensitivity series (baseline, 2hr, 4hr, 6hr) (05/07/2023 6:15 PM ELECTRO OPTICS ENGINEER) Pathologist [facility] Trop I hs 29 <=35 ng/L [facility] Comment: Interpretive Data For further hscTnI resources including the diagnostic algorithm and an aid in interpretation, copy and paste this link: https://bjhlab.testcatalog.org/show/hsTrop-[email or web address] Current Interpretive Data last revised 2019. Blood 05/07/2023 6:15 PM ELECTRO OPTICS ENGINEER 05/07/2023 6:48 PM ELECTRO OPTICS ENGINEER Faustino Herrera MD LAB BLOOD ORDERABLES Final Result Performing Organization Address City/[facility] Co de Phone Number [facility] Department [place] [address] * Potassium, whole blood (05/07/2023 5:57 PM ELECTRO OPTICS ENGINEER) Pathologist [facility] Potassium, bld 4.2 3.3 - 4.9 mmol/L [facility] Blood 05/07/2023 5:57 PM ELECTRO OPTICS ENGINEER 05/07/2023 6:05 PM ELECTRO OPTICS ENGINEER Result [facility] Anderson Tolentino Jr., SECTION CUTTER LAB BLOOD ORDERABLE S Final Result Performing Organization Address [facility] Co de Phone Number [facility] [place] [address] * (ABNORMAL) Blood gas, arterial (05/07/2023 5:57 PM ELECTRO OPTICS ENGINEER) pH, Art 7.47(H) 7.35 - 7.45 [facility] PCO2, Arterial 27(L) 35 - 45 mmHg [facility] PO2, Arterial 154(H) 83 - 108 mmHg [facility] HCO3 Art (Calculated) 20 20 - 30 mmol/L [facility] BE, art -3 mmol/L [facility] Comment: Interpretive Data No Reference Range Established Current Interpretive Data was last revised on 2017 O2 Sat Art (Measured) 100(H) 90 - 95 % [facility] Blood 05/07/2023 5:57 PM ELECTRO OPTICS ENGINEER 05/07/2023 6:05 PM ELECTRO OPTICS ENGINEER us Faustino Herrera MD LAB BLOOD ORDERABLES Final Result Performing Organization Address [facility] Co de Phone Number [facility] [place] [address] * XR Chest 1 View (05/07/2023 4:07 PM ELECTRO OPTICS ENGINEER) Anatomical Region Laterality Modality Body, Chest N/A Computed Radiogr aphy 05/08/2023 8:14 AM ELECTRO OPTICS ENGINEER Impressions 05/08/2023 8:14 AM ELECTRO OPTICS ENGINEER Comparison is made to radiograph of 05/06/2023 at 10:05 PM 1. Portable chest radiograph 05/07/2023 at 4:02 PM: Endovascular stent graft throughout the thoracic aorta and descending aorta appears unchanged. There is also a short segment stent in the left subclavian artery. Interval removal of the endotracheal tube. The tip of the right internal jugular central venous catheter projects over the superior cavoatrial junction. Stable mild enlargement the cardiac silhouette. The previous airspace opacity in the left upper lobe has resolved in the interval. Minimal subsegmental atelectasis in lung bases. Remainder of lungs are clear. 2. Anteroposterior view chest radiograph 05/07/2023 at 8:21 PM: The patient is rotated towards the left. Given that the there is no significant change of the cardiomediastinal silhouette. Slight increase atelectasis in left lower lobe. Remainder also stable. Electronically signed by: Aaron Schafer M.D. Narrative 05/08/2023 8:14 AM ELECTRO OPTICS ENGINEER EXAMINATION: 2 serial 1 view chest radiograph Procedure Note Aaron Schafer MD - 05/08/2023 EXAMINATION: 2 serial 1 view chest radiograph IMPRESSION: Comparison is made to radiograph of 05/06/2023 at 10:05 PM 1. Portable chest radiograph 05/07/2023 at 4:02 PM: Endovascular stent graft throughout the thoracic aorta and descending aorta appears unchanged. There is also a short segment stent in the left subclavian artery. Interval removal of the endotracheal tube. The tip of the right internal jugular central venous catheter projects over the superior cavoatrial junction. Stable mild enlargement the cardiac silhouette. The previous airspace opacity in the left upper lobe has resolved in the interval. Minimal subsegmental atelectasis in lung bases. Remainder of lungs are clear. 2. Anteroposterior view chest radiograph 05/07/2023 at 8:21 PM: The patient is rotated towards the left. Given that the there is no significant change of the cardiomediastinal silhouette. Slight increase atelectasis in left lower lobe. Remainder also stable. Electronically signed by: Aaron Schafer M.D. Faustino Herrera MD IMG XR PROCEDURES Final Re sult * (ABNORMAL) POC Blood Gas and Chemistries, Arterial - (05/07/2023 3:57 PM ELECTRO OPTICS ENGINEER) pH, Art POC 7.41 7.35 - 7.45 [facility] pCO2, Art POC 35 35 - 45 mmHg [facility] pO2, Art POC 60(L) 83 - 108 mmHg [facility] Na, POC 136 135 - 145 mmol/L [facility] K POC 3.8 3.3 - 4.9 mmol/L [facility] Comment: Interpretive Data This method is not able to assess for hemolysis, which may falsely increase potassium concentrations. If further testing is needed to evaluate this result, consider in-laboratory plasma potassium. Current Interpretive Data was last revised on 2022. Cl, POC 104 97 - 110 mmol/L [facility] Ionized Ca, POC 5.07 4.50 - 5.10 mg/dL [facility] Glucose, POC 116 70 - 199 mg/dL [facility] Lactate, POC 0.9 0.7 - 2.2 mmol/L [facility] SO2 (natalia) arterial 91 90 - 95 % [facility] Base excess, POC -2.0 mmol/L [facility] HCO3, Art POC 22 20 - 30 mmol/L [facility] Hct, POC 31.0(L) 41.4 - 51.6 % [facility] O2 Sat, Art POC (Calc) 91 % [facility] Total Hb, POC 10.4(L) 13.8 - 17.2 g/dL [facility] Blood 05/07/2023 3:57 PM ELECTRO OPTICS ENGINEER 05/07/2023 3:57 PM ELECTRO OPTICS ENGINEER us Faustino Herrera MD LAB POCT ORDERABLES - ROSIE CE Final Result [facility] Department [place] [address] * Critical Care (05/07/2023 2:55 PM ELECTRO OPTICS ENGINEER) Narrative Dalton Locke MD - 05/07/2023 2:55 PM ELECTRO OPTICS ENGINEER Dalton Locke MD ? 05/08/2023 ??2:57 PM Critical Care Performed by: Dalton Locke MD Authorized by: Dalton Locke MD ?? CRITICAL CARE: ??Team: ??83 CTICU ??Shift: [...] plan with the ICU team and other medical/sap security consultant staff, making frequent assessments and decisions [...] conditions: ? Acute pain/acute postoperative pain ?? Aortic dissection/aneurysm ?? Concern for Spinal Cord Ischemia ?? Acute hypoxic respiratory failure ?? Leukocytosis and Pneumonia ??This time was spent by me doing the following: ? Acute pain control, Frequent neurologic exams and Lumbar drain management ?? Initiation/active titration of vasoactive medications and Serial neurovascular exams ?? Optiflow support ?? Active diuresis ?? Empiric broad coverage antibiotics ?? I spent time reviewing and interpreting data from bedside monitors, laboratory results, and imaging, I spent time discussing the management of this critically ill patient with consultants and the medical staff and I spent time documenting in the medical record us Dalton Locke MD IN CLINIC/BEDSIDE ORDERABLES Final Result * Potassium, whole blood (05/07/2023 2:42 PM ELECTRO OPTICS ENGINEER) [facility] Potassium, bld 3.5 3.3 - 4.9 mmol/L [facility] Blood 05/07/2023 2:42 PM ELECTRO OPTICS ENGINEER 05/07/2023 2:48 PM ELECTRO OPTICS ENGINEER us Anderson Tolentino Jr., TREE LAB BLOOD ORDERABLE S Final Result [facility] Department [place] [address] * (ABNORMAL) Blood gas, arterial (05/07/2023 2:42 PM ELECTRO OPTICS ENGINEER) Pathologist [facility] pH, Art 7.41 7.35 - 7.45 [facility] PCO2, Arterial 37 35 - 45 mmHg [facility] PO2, Arterial 65(L) 83 - 108 mmHg [facility] HCO3 Art (Calculated) 24 20 - 30 mmol/L [facility] BE, art -1 mmol/L [facility] Comment: Interpretive Data No Reference Range Established Current Interpretive Data was last revised on 2017 O2 Sat Art (Measured) 92 90 - 95 % [facility] Blood 05/07/2023 2:42 PM ELECTRO OPTICS ENGINEER 05/07/2023 2:48 PM ELECTRO OPTICS ENGINEER us Faustino Herrera MD LAB BLOOD ORDERABLES Final Result [facility] Department [place] [address] * AL ARTL CATHJ/CANNULJ MNTR/TRANSFUSION SPX PRQ (05/07/2023 1:42 PM ELECTRO OPTICS ENGINEER) Narrative Dalton Locke MD - 05/07/2023 1:42 PM ELECTRO OPTICS ENGINEER Thea Rizzo MD ? 05/07/2023 ??1:51 PM Arterial Line Insertion Date/Time: 05/07/2023 1:42 PM Performed by: Thea Rizzo MD Authorized by: Thea Rizzo MD ?? [place] Protocol: Informed consent: ??Risks, benefits, alternatives discussed and patient/telephone service representative/guardian agrees and accepts Patient's stated name/ matches armband: ??Yes Consent form signed, dated, timed; matches correct patient, intended procedure and site: ??Yes Imaging: ??Pertinent imaging reviewed, correctly oriented and match to patient identifiers Supplies, devices and special equipment are available: yes ?? Site/side marked: yes Immediately prior to the procedure a time out was called: a verbal verification by the procedure participants confirmed correct patient identity, correct site/side marked and visible (if applicable); agreement on procedure to be done; and correct patient positioning ?? Indications: multiple ABGs and hemodynamic monitoring ?? Location: ??Right radial Anesthesia: ??Topical application Patient skin preparation: chlorhexidine ?? Ultrasound guidance: ??Pre-procedure diagnostic and real-time needle guidance Patient preparation: ??Cap, gloves, sterile probe cover, handwashing, mask, partial body drape and towels Catheter gauge: ??20 Single percutaneous needle puncture: Yes ?? Seldinger technique used: Yes ?? Number of attempts: ??1 Placement confirmed with arterial waveform: Yes ?? Post-procedure: ??Line sutured and dressing applied Post-procedure CMS: ??Normal Complications: no complications noted during insertion ?? Post Procedure Debrief: All guidewires, needles, sponges or other items are accounted for: yes ?? Thea Zabala MD IV THERAPY ORDERABLES Final Result * aPTT (05/07/2023 10:37 AM ELECTRO OPTICS ENGINEER) aPTT 35 28 - 38 sec [facility] Comment: Interpretive Data Heparin therapeutic range: 66.0 - 100.0 seconds. Range based on correlation with therapeutic heparin activity range of 0.3 - 0.7 Units/mL. Current interpretive data was last revised on 2023. Blood 05/07/2023 10:3 7 AM ELECTRO OPTICS ENGINEER 05/07/2023 10:46 AM ELECTRO OPTICS ENGINEER Faustino Herrera MD LAB BLOOD ORDERABLES Final Result [facility] Department [place] [address] * (ABNORMAL) Protime-INR (05/07/2023 10:37 AM ELECTRO OPTICS ENGINEER) PT 14.6(H) 10.3 - 13.7 sec [facility] INR 1.28(H) 0.90 - 1.20 [facility] Comment: Interpretive data Oral anticoagulant therapeutic ranges: Venous thromboembolism prophylaxis or treatment: 2.0-3.0 CARDIOLOGY Standard range: 2.0-3.0 High-intensity range: 2.5-3.5 Refer to indication-specific guidelines for appropriate target ranges for prosthetic heart valve replacement. Current interpretive data was last revised on 2019. Blood 05/07/2023 10:3 7 AM ELECTRO OPTICS ENGINEER 05/07/2023 10:46 AM ELECTRO OPTICS ENGINEER Faustino Herrera MD LAB BLOOD ORDERABLES Final Result [facility] Department [place] [address] * (ABNORMAL) Blood gas, arterial (05/07/2023 6:13 AM ELECTRO OPTICS ENGINEER) [facility] pH, Art 7.48(H) 7.35 - 7.45 [facility] PCO2, Arterial 38 35 - 45 mmHg [facility] PO2, Arterial 162(H) 83 - 108 mmHg [facility] HCO3 Art (Calculated) 29 20 - 30 mmol/L [facility] BE, art 5 mmol/L [facility] Comment: Interpretive Data No Reference Range Established Current Interpretive Data was last revised on 2017 O2 Sat Art (Measured) 100(H) 90 - 95 % [facility] Blood 05/07/2023 6:13 AM ELECTRO OPTICS ENGINEER 05/07/2023 6:26 AM ELECTRO OPTICS ENGINEER Faustino Herrera MD LAB BLOOD ORDERABLES Final Result Performing Organization Address City/[facility]/ZIP Co de Phone Number [facility] Department [place] [address] * Potassium, whole blood (05/07/2023 5:56 AM ELECTRO OPTICS ENGINEER) [facility] Potassium, bld 3.9 3.3 - 4.9 mmol/L [facility] Blood 05/07/2023 5:56 AM ELECTRO OPTICS ENGINEER 05/07/2023 6:08 AM ELECTRO OPTICS ENGINEER Anderson Tolentino Jr., TREE LAB BLOOD ORDERABLE S Final Result [facility] [place] [address] * Potassium, whole blood (05/07/2023 3:58 AM ELECTRO OPTICS ENGINEER) Potassium, bld 4.2 3.3 - 4.9 mmol/L [facility] Blood 05/07/2023 3:58 AM ELECTRO OPTICS ENGINEER 05/07/2023 4:19 AM ELECTRO OPTICS ENGINEER us Anderson Tolentino Jr., SECTION CUTTER LAB BLOOD ORDERABLE S Final Result [facility] Department [place] [address] * AL ARTL CATHJ/CANNULJ MNTR/TRANSFUSION SPX PRQ (05/07/2023 2:50 AM ELECTRO OPTICS ENGINEER) Narrative Dalton Locke MD - 05/07/2023 2:50 AM ELECTRO OPTICS ENGINEER Michael Hamm MD ? 05/07/2023 ??2:52 AM Arterial Line Insertion Date/Time: 05/07/2023 2:50 AM Performed by: Michael Hamm MD Authorized by: Michael Hamm MD ?? [place] Protocol: RN Notified of Procedure: yes ?? Informed consent: ??Risks, benefits, alternatives discussed Patient's stated name/ matches armband: ??Yes Allergies confirmed: yes ?? Consent form signed, dated, timed; matches correct patient, intended procedure and site: ??Yes Supplies, devices and special equipment are available: yes ?? Immediately prior to the procedure a time out was called: a verbal verification by the procedure participants confirmed correct patient identity, correct site/side marked and visible (if applicable); agreement on procedure to be done; and correct patient positioning ?? Indications: hemodynamic monitoring ?? Location: ??Left radial Anesthesia: ??Local infiltration Local anesthetic: ??Lidocaine 1% Ultrasound guidance: ??Pre-procedure diagnostic and real-time needle guidance Patient preparation: ??Cap, gloves, gown, handwashing, mask, partial body drape and towels Leo's test normal?: Yes ?? Catheter gauge: ??20 Single percutaneous needle puncture: Yes ?? Seldinger technique used: Yes ?? Number of attempts: ??1 Placement confirmed with arterial waveform: Yes ?? Post-procedure: ??Line sutured and dressing applied Post-procedure CMS: ??Normal Complications: no complications noted during insertion ?? Post Procedure Debrief: All guidewires, needles, sponges or other items are accounted for: yes ?? us Michael Hamm MD IV THERAPY ORDERAB LES Final Result * eGFR (05/07/2023 12:35 AM ELECTRO OPTICS ENGINEER) Pathologist [facility] eGFR >90 >=60 mL/min/1. 73 m2 JAIRON [...] interpretive data was last reviewed 2021. Blood 05/07/2023 12:3 5 AM ELECTRO OPTICS ENGINEER 05/07/2023 12:47 AM ELECTRO OPTICS ENGINEER us Alonzo Duncan MD LAB BLOOD ORDERABLES Fin al Result [facility] [place] [address] * (ABNORMAL) Blood gas, arterial (05/07/2023 12:35 AM ELECTRO OPTICS ENGINEER) pH, Art 7.52(H) 7.35 - 7.45 [facility] PCO2, Arterial 40 35 - 45 mmHg [facility] PO2, Arterial 117(H) 83 - 108 mmHg [facility] HCO3 Art (Calculated) 34(H) 20 - 30 mmol/L [facility] BE, art 9 mmol/L [facility] Comment: Interpretive Data No Reference Range Established Current Interpretive Data was last revised on 2017 O2 Sat Art (Measured) 99(H) 90 - 95 % [facility] Blood 05/07/2023 12:3 5 AM ELECTRO OPTICS ENGINEER 05/07/2023 12:45 AM ELECTRO OPTICS ENGINEER us Faustino Herrera MD LAB BLOOD ORDERABLES Final Result [facility] [place] [address] * Potassium, whole blood (05/07/2023 12:35 AM ELECTRO OPTICS ENGINEER) Pathologist [facility] Potassium, bld 3.7 3.3 - 4.9 mmol/L [facility] Blood 05/07/2023 12:3 5 AM ELECTRO OPTICS ENGINEER 05/07/2023 12:45 AM ELECTRO OPTICS ENGINEER us Anderson Tolentino Jr., TREE LAB BLOOD ORDER[place] [address] * Type and screen (05/07/2023 12:35 AM ELECTRO OPTICS ENGINEER) Ellen, indirect Negative ABO Rh A Positive [facility] Blood 05/07/2023 12:3 5 AM ELECTRO OPTICS ENGINEER 05/07/2023 1:00 AM ELECTRO OPTICS ENGINEER Narrative [facility] - 05/07/2023 2:20 AM ELECTRO OPTICS ENGINEER Has the patient had Daratumumab or Isatuximab in the past 6 months?->Unknown Faustino Herrera MD LAB BLOOD BANK TEST ORDERA BLES Final Result Performing Organization Address [facility] Co de Phone Number [facility] [place] [address] * Phosphorus (05/07/2023 12:35 AM ELECTRO OPTICS ENGINEER) [facility] Phosphorus, pl 2.9 2.3 - 4.5 mg/dL [facility] Blood 05/07/2023 12:3 5 AM ELECTRO OPTICS ENGINEER 05/07/2023 12:47 AM ELECTRO OPTICS ENGINEER Faustino Herrera MD LAB BLOOD ORDERABLES Final Result Performing Organization Address [facility] de Phone Number [facility] Department [place] [address] * Magnesium (05/07/2023 12:35 AM ELECTRO OPTICS ENGINEER) [facility] Magnesium 2.3 1.4 - 2.5 mg/dL [facility] Blood 05/07/2023 12:3 5 AM ELECTRO OPTICS ENGINEER 05/07/2023 12:47 AM ELECTRO OPTICS ENGINEER Faustino Herrera MD LAB BLOOD ORDERABLES Final Result Performing Organization Address [facility] de Phone Number [facility] [place] [address] * (ABNORMAL) Basic metabolic panel (05/07/2023 12:35 AM ELECTRO OPTICS ENGINEER) [facility] Sodium 140 135 - 145 mmol/L [facility] Potassium, pl 3.8 3.3 - 4.9 mmol/L [facility] Chloride 97 97 - 110 mmol/L [facility] CO2 33(H) 22 - 32 mmol/L [facility] Anion gap 10 2 - 15 mmol/L [facility] BUN 20 6 - 25 mg/dL [facility] Creatinine 0.99 0.80 - 1.30 mg/dL [facility] Glucose 103 70 - 199 mg/dL [facility] Comment: Interpretive Data Fasting glucose >/= [...] 2022. Calcium 8.7 8.5 - 10.3 mg/dL [facility] Blood 05/07/2023 12:3 5 AM ELECTRO OPTICS ENGINEER 05/07/2023 12:47 AM ELECTRO OPTICS ENGINEER Faustino Herrera MD LAB BLOOD ORDERABLES Final Result [facility] Department [place] [address] * (ABNORMAL) CBC without differential (05/07/2023 12:35 AM ELECTRO OPTICS ENGINEER) [facility] WBC 13.6(H) 3.8 - 9.9 K/cumm [facility] Hgb 10.0(L) 13.0 - 17.5 g/dL [facility] Comment: Interpretive Data A reference range for this assay has not been established for patients with an unknown legal sex. Please refer to the laboratory test catalog for established sex-specific reference intervals. Current interpretive data was last revised on 2023. Hct 29.5(L) 38.9 - 50.3 % [facility] Comment: Interpretive Data A reference range for this assay has not been established for patients with an unknown legal sex. Please refer to the laboratory test catalog for established sex-specific reference intervals. Current interpretive data was last revised on 2023. Plt 244 150 - 400 K/cumm [facility] MPV 10.1 9.1 - 12.3 fL [facility] RBC 3.36(L) 4.30 - 5.80 M/cumm [facility] Comment: Interpretive Data A reference range for this assay has not been established for patients with an unknown legal sex. Please refer to the laboratory test catalog for established sex-specific reference intervals. Current interpretive data was last revised on 2023. MCV 87.8 81.3 - 96.4 fL [facility] MCH 29.8 27.1 - 33.3 pg [facility] MCHC 33.9 32.3 - 35.7 g/dL [facility] RDW CV 13.6 11.1 - 14.9 % [facility] RDW SD 43.8 35.7 - 48.1 fL [facility] NRBC abs 0.02(H) 0.00 - 0.01 K/cumm [facility] Blood 05/07/2023 12:3 5 AM ELECTRO OPTICS ENGINEER 05/07/2023 12:48 AM ELECTRO OPTICS ENGINEER us Faustino Herrera MD LAB BLOOD ORDERABLES Final Result Performing Organization Address City/[facility]/ZIP Co de Phone Number [facility] Department [place] [address] * Lactate (05/07/2023 12:35 AM ELECTRO OPTICS ENGINEER) Lactate 1.2 0.7 - 2.0 mmol/L [facility] Blood 05/07/2023 12:3 5 AM ELECTRO OPTICS ENGINEER 05/07/2023 12:48 AM ELECTRO OPTICS ENGINEER Alonzo Duncan MD LAB BLOOD ORDERABLES Fin al Result [facility] Department [place] [address] * (ABNORMAL) Triglycerides (05/07/2023 12:35 AM ELECTRO OPTICS ENGINEER) Triglycerides 346(H) <=149 mg/dL [facility] Comment: Interpretive Data Ages < or [...] Data was last revised on 2018. Blood 05/07/2023 12:3 5 AM ELECTRO OPTICS ENGINEER 05/07/2023 12:47 AM ELECTRO OPTICS ENGINEER Sheila BRADFORD LAB BLOOD ORDERABLE S Final Result Performing Organization Address City/State/[facility] Co de Phone Number [facility] Department [place] [address] * MRI Spine Total Complete WO Contrast (05/07/2023 12:10 AM ELECTRO OPTICS ENGINEER) Anatomical Region Laterality Modality Spine N/A Magnetic Resonan ce 05/07/2023 8:59 AM ELECTRO OPTICS ENGINEER Addenda Addendum by Veronica Hall MD on 05/08/2023 12:24 PM ELECTRO OPTICS ENGINEER ADDENDUM Diffusion-weighted images are performed. ??No evidence of cord ischemia. Electronically signed by: Veronica Hall M.D. Impressions 05/07/2023 10:15 AM ELECTRO OPTICS ENGINEER 1. ??Focal displacement of the cauda equina nerve roots most prominent at the level of L4 with anterior placement of the cauda equina nerve roots at this level. ??This is likely secondary to dorsal hematoma given clinical history of bloody output from lumbar drain. ??Patient is at increased risk of developing arachnoiditis. The collection measures up to 6mm at L4 resulting in severe stenosis spinal canal stenosis. 2. ??Partially imaged thoracoabdominal aortic dissection, status post endovascular graft repair. Dictated by: Bassam Land MD The radiology attending physician has personally reviewed this study, and had reviewed and/or edited this written report and agrees with it. Electronically signed by: Veronica Hall M.D. Narrative 05/07/2023 10:15 AM ELECTRO OPTICS ENGINEER EXAMINATION: 1. Magnetic resonance imaging (MRI) of the cervical spine without contrast 2. Magnetic resonance imaging (MRI) of the thoracic spine without contrast 3. Magnetic resonance imaging (MRI) of the lumbar spine without contrast HISTORY: Concern for spinal cord ischemia, status post lumbar drain TECHNIQUE: Multiplanar multi-weighted MRI of the cervical spine was performed without intravenous contrast using the standard protocol. Multiplanar multi-weighted MRI of the thoracic spine was performed without intravenous contrast using the standard protocol. Multiplanar multi-weighted MRI of the lumbar spine was performed without intravenous contrast using the standard protocol. COMPARISON: CT chest, abdomen, pelvis 05/05/23 FINDINGS: CERVICAL SPINE: Straightening of the cervical spine. Vertebral bodies demonstrate normal signal intensity on all sequences. No acute fracture is identified. The craniocervical junction is normal. The visualized portions of the skull base and the posterior fossa are normal. The spinal cord demonstrates normal signal intensity on all sequences. Intervertebral disks have normal height and signal intensity. There are no annular fissures identified. No soft tissue abnormality is identified. Normal signal voids are present in the vertebral arteries. The disks are normal in configuration. There is no facet arthropathy. There is no uncovertebral joint disease. There is no neuroforaminal stenosis. There is no spinal canal stenosis. THORACIC SPINE: The alignment of the thoracic spine is normal. Vertebral bodies demonstrate normal signal intensity on all sequences. There are no compression fractures. There is a focal T2 lesions in the central cord at T4. Intervertebral disks have normal height and signal intensity. There are bilateral small pleural effusions. Prior thoracic aortic dissection, status post endovascular repair. The disks are normal in configuration. There is no facet arthropathy. There is no neuroforaminal stenosis. There is no spinal canal stenosis. LUMBAR SPINE: A lumbar drain is present at L2-L3. ??There is a very dorsal subdural hematoma or subarachnoid hemorrhage extending from T11 to S1 measuring up to 6 mm at L4 with displacement of the adjacent nerve roots and moderate spinal canal stenosis. Vertebral bodies demonstrate normal signal intensity on all sequences. There are no compression fractures. The conus medullaris terminates at the level of L1-L2. The distal spinal cord signal intensity is normal. ??The aorta is normal. There is paravertebral and subcutaneous edema. Mild disc height loss. There is mild multilevel facet arthropathy. There is no neuroforaminal stenosis. There is moderate spinal canal stenosis at L4 with more mild stenosis at L2-L3. Procedure Note Veronica Hall MD - 05/07/2023 EXAMINATION: 1. Magnetic resonance imaging (MRI) of the cervical spine without contrast 2. Magnetic resonance imaging (MRI) of the thoracic spine without contrast 3. Magnetic resonance imaging (MRI) of the lumbar spine without contrast HISTORY: Concern for spinal cord ischemia, status post lumbar drain TECHNIQUE: Multiplanar multi-weighted MRI of the cervical spine was performed without intravenous contrast using the standard protocol. Multiplanar multi-weighted MRI of the thoracic spine was performed without intravenous contrast using the standard protocol. Multiplanar multi-weighted MRI of the lumbar spine was performed without intravenous contrast using the standard protocol. COMPARISON: CT chest, abdomen, pelvis 05/05/23 FINDINGS: CERVICAL SPINE: Straightening of the cervical spine. Vertebral bodies demonstrate normal signal intensity on all sequences. No acute fracture is identified. The craniocervical junction is normal. The visualized portions of the skull base and the posterior fossa are normal. The spinal cord demonstrates normal signal intensity on all sequences. Intervertebral disks have normal height and signal intensity. There are no annular fissures identified. No soft tissue abnormality is identified. Normal signal voids are present in the vertebral arteries. The disks are normal in configuration. There is no facet arthropathy. There is no uncovertebral joint disease. There is no neuroforaminal stenosis. There is no spinal canal stenosis. THORACIC SPINE: The alignment of the thoracic spine is normal. Vertebral bodies demonstrate normal signal intensity on all sequences. There are no compression fractures. There is a focal T2 lesions in the central cord at T4. Intervertebral disks have normal height and signal intensity. There are bilateral small pleural effusions. Prior thoracic aortic dissection, status post endovascular repair. The disks are normal in configuration. There is no facet arthropathy. There is no neuroforaminal stenosis. There is no spinal canal stenosis. LUMBAR SPINE: A lumbar drain is present at L2-L3. There is a very dorsal subdural hematoma or subarachnoid hemorrhage extending from T11 to S1 measuring up to 6 mm at L4 with displacement of the adjacent nerve roots and moderate spinal canal stenosis. Vertebral bodies demonstrate normal signal intensity on all sequences. There are no compression fractures. The conus medullaris terminates at the level of L1-L2. The distal spinal cord signal intensity is normal. The aorta is normal. There is paravertebral and subcutaneous edema. Mild disc height loss. There is mild multilevel facet arthropathy. There is no neuroforaminal stenosis. There is moderate spinal canal stenosis at L4 with more mild stenosis at L2-L3. IMPRESSION: 1. Focal displacement of the cauda equina nerve roots most prominent at the level of L4 with anterior placement of the cauda equina nerve roots at this level. This is likely secondary to dorsal hematoma given clinical history of bloody output from lumbar drain. Patient is at increased risk of developing arachnoiditis. The collection measures up to 6mm at L4 resulting in severe stenosis spinal canal stenosis. 2. Partially imaged thoracoabdominal aortic dissection, status post endovascular graft repair. Dictated by: Bassam Land MD The radiology attending physician has personally reviewed this study, and had reviewed and/or edited this written report and agrees with it. Electronically signed by: Veronica Hall M.D. Faustino Herrera MD [facility] MRI PROCEDURES Edited Result - Final * XR Chest 1 View (05/06/2023 10:08 PM ELECTRO OPTICS ENGINEER) Anatomical Region Laterality Modality Body, Chest N/A Digital Radiogra phy 05/07/2023 7:11 AM ELECTRO OPTICS ENGINEER Impressions 05/07/2023 7:11 AM ELECTRO OPTICS ENGINEER The current study is compared with the prior radiograph dated ??05/06/2023 7:02 PM. There has been interval intubation with a endotracheal tube terminating approximately 3 cm above the sommer. ??A right internal jugular central venous catheter terminates in the superior cavoatrial junction. ??Redemonstrated aortic and left subclavian stent graft. Left basilar and retrocardiac atelectasis with a small layering left pleural effusion. ??Right lung is clear. ??There is increasing patchy bilateral atelectasis. ??No pneumothorax. ??The cardiomediastinal silhouette is unchanged. The radiology attending physician has personally reviewed this study, and had reviewed and/or edited this written report and agrees with it. Electronically signed by: Floridalma Oliva M.D. Narrative 05/07/2023 7:11 AM ELECTRO OPTICS ENGINEER EXAMINATION: 1 view chest radiograph Procedure Note Floridalma Oliva MD - 05/07/2023 EXAMINATION: 1 view chest radiograph IMPRESSION: The current study is compared with the prior radiograph dated 05/06/2023 7:02 PM. There has been interval intubation with a endotracheal tube terminating approximately 3 cm above the sommer. A right internal jugular central venous catheter terminates in the superior cavoatrial junction. Redemonstrated aortic and left subclavian stent graft. Left basilar and retrocardiac atelectasis with a small layering left pleural effusion. Right lung is clear. There is increasing patchy bilateral atelectasis. No pneumothorax. The cardiomediastinal silhouette is unchanged. The radiology attending physician has personally reviewed this study, and had reviewed and/or edited this written report and agrees with it. Electronically signed by: Floridalma Oliva M.D. Faustino Herrera MD IMG XR PROCEDURES Final Re sult * INTUBATION (05/06/2023 9:36 PM ELECTRO OPTICS ENGINEER) Narrative Dalton Locke MD - 05/06/2023 9:36 PM ELECTRO OPTICS ENGINEER Dustin Souza, DO ? 05/06/2023 ??9:39 PM Intubation Date/Time: 05/06/2023 9:36 PM Performed by: Dustin Souza, Authorized by: Dustin Souza, DO ?? [place] Protocol: RN Notified of Procedure: yes ?? Informed consent: ??Risks, benefits, alternatives discussed Patient's stated name/ matches armband: ??Yes Allergies confirmed: yes ?? Consent form signed, dated, timed; matches correct patient, intended procedure and site: ??Yes Imaging: ??N/a Lab/Diag test results: ??N/a Supplies, devices and special equipment are available: yes ?? Site/side marked: n/a ??Immediately prior to the procedure a time out was called: a verbal verification by the procedure participants confirmed correct patient identity, correct site/side marked and visible (if applicable); agreement on procedure to be done; and correct patient positioning ?? Indications: ??Airway protection Intubation method: ??Video-assisted Patient status: ??Unconscious Patient position: ??Appropriate position w/cervical spine immobilization maintained throughout the procedure Preoxygenation: ??Nonrebreather mask Mask Ease: easy ?? Pretreatment meds: ??Fentanyl Sedation: ??Propofol Paralytic: ??Rocuronium Laryngoscope type: CMAC. Laryngoscope size: ??Mac 4 Tube size (mm): ??8.0 Tube type: ??Cuffed Number of attempts: ??1 Was this a difficult intubation?: No ?? Cricoid pressure: No ?? Cords visualized: Yes ?? Post-procedure assessment: ??Chest rise and ETCO2 monitor Breath sounds: ??Equal Cuff inflated: Yes ?? ETT to lip (cm): ??25 Tube secured with: ??ETT rubalcava Patient tolerance: ??Patient tolerated the procedure well with no immediate complications us Dustin Souza DO IN CLINIC/BEDSIDE SHAUNA LOPEZ Edited Result - Final * XR Chest 1 View (05/06/2023 7:41 PM ELECTRO OPTICS ENGINEER) Anatomical Region Laterality Modality Body, Chest N/A Computed Radiogr aphy 05/06/2023 8:04 PM ELECTRO OPTICS ENGINEER Impressions 05/06/2023 8:04 PM ELECTRO OPTICS ENGINEER The current study is compared with the prior radiograph dated ??05/05/2023. ??The heart is mildly enlarged there is a prominent aorta with an endoluminal aortic stent graft in place. ??Vascular stent is also seen superimposing arch vessel. ??There is no mass or lymphadenopathy no pulmonary edema no effusions. ??There is no pneumothorax.. Electronically signed by: Floridalma Oliva M.D. Narrative 05/06/2023 8:04 PM ELECTRO OPTICS ENGINEER EXAMINATION: 1 view chest radiograph Procedure Note Floridalma Oliva MD - 05/06/2023 EXAMINATION: 1 view chest radiograph IMPRESSION: The current study is compared with the prior radiograph dated 05/05/2023. The heart is mildly enlarged there is a prominent aorta with an endoluminal aortic stent graft in place. Vascular stent is also seen superimposing arch vessel. There is no mass or lymphadenopathy no pulmonary edema no effusions. There is no pneumothorax.. Electronically signed by: Floridalma Oliva M.D. Deniz BRADFORD IMG XR PROCEDURES Final R esult * (ABNORMAL) Blood gas, arterial (05/06/2023 7:22 PM ELECTRO OPTICS ENGINEER) pH, Art 7.54(H) 7.35 - 7.45 [facility] PCO2, Arterial 39 35 - 45 mmHg [facility] PO2, Arterial 118(H) 83 - 108 mmHg [facility] HCO3 Art (Calculated) 34(H) 20 - 30 mmol/L [facility] BE, art 10 mmol/L [facility] Comment: Interpretive Data No Reference Range Established Current Interpretive Data was last revised on 2017 O2 Sat Art (Measured) 99(H) 90 - 95 % [facility] Blood 05/06/2023 7:22 PM ELECTRO OPTICS ENGINEER 05/06/2023 7:29 PM ELECTRO OPTICS ENGINEER us Faustino Herrera MD LAB BLOOD ORDERABLES Final Result [facility] Department of Laboratories [place], [place] [id number] * Potassium, whole blood (05/06/2023 7:22 PM ELECTRO OPTICS ENGINEER) Potassium, bld 3.8 3.3 - 4.9 mmol/L [facility] Blood 05/06/2023 7:22 PM ELECTRO OPTICS ENGINEER 05/06/2023 7:29 PM ELECTRO OPTICS ENGINEER Anderson Tolentino Jr., TREE LAB BLOOD ORDERABLE S Final Result [facility] [place] [address] * (ABNORMAL) Blood gas, arterial (05/06/2023 4:35 PM ELECTRO OPTICS ENGINEER) pH, Art 7.51(H) 7.35 - 7.45 [facility] PCO2, Arterial 42 35 - 45 mmHg [facility] PO2, Arterial 72(L) 83 - 108 mmHg [facility] HCO3 Art (Calculated) 34(H) 20 - 30 mmol/L [facility] BE, art 9 mmol/L [facility] Comment: Interpretive Data No Reference Range Established Current Interpretive Data was last revised on 2017 O2 Sat Art (Measured) 96(H) 90 - 95 % [facility] Blood 05/06/2023 4:35 PM ELECTRO OPTICS ENGINEER 05/06/2023 4:43 PM ELECTRO OPTICS ENGINEER Faustino Herrera MD LAB BLOOD ORDERABLES Final Result Performing Organization Address [facility] [place] [address] * Potassium, whole blood (05/06/2023 4:35 PM ELECTRO OPTICS ENGINEER) Potassium, bld 4.0 3.3 - 4.9 mmol/L [facility] Blood 05/06/2023 4:35 PM ELECTRO OPTICS ENGINEER 05/06/2023 4:43 PM ELECTRO OPTICS ENGINEER Anderson Tolentino Jr., TREE LAB BLOOD ORDERABLE S Final Result [facility] [place] [address] * Potassium, whole blood (05/06/2023 10:30 AM ELECTRO OPTICS ENGINEER) Potassium, bld 3.5 3.3 - 4.9 mmol/L [facility] Blood 05/06/2023 10:3 0 AM ELECTRO OPTICS ENGINEER 05/06/2023 10:38 AM ELECTRO OPTICS ENGINEER Anderson Tolentino Jr., TREE LAB BLOOD ORDERABLE S Edited Result - Final [facility] Department [place] [address] * (ABNORMAL) Blood gas, arterial (05/06/2023 10:30 AM ELECTRO OPTICS ENGINEER) pH, Art 7.48(H) 7.35 - 7.45 [facility] PCO2, Arterial 45 35 - 45 mmHg [facility] PO2, Arterial 98 83 - 108 mmHg [facility] HCO3 Art (Calculated) 34(H) 20 - 30 mmol/L [facility] BE, art 9 mmol/L [facility] Comment: Interpretive Data No Reference Range Established Current Interpretive Data was last revised on 2017 O2 Sat Art (Measured) 98(H) 90 - 95 % [facility] Blood 05/06/2023 10:3 0 AM ELECTRO OPTICS ENGINEER 05/06/2023 10:38 AM ELECTRO OPTICS ENGINEER Faustino Herrera MD LAB BLOOD ORDERABLES Final Result [facility] Department [place] [address] * Potassium, whole blood (05/06/2023 6:07 AM ELECTRO OPTICS ENGINEER) Potassium, bld 3.4 3.3 - 4.9 mmol/L [facility] Blood 05/06/2023 6:07 AM ELECTRO OPTICS ENGINEER 05/06/2023 6:21 AM ELECTRO OPTICS ENGINEER us Anderson Tolentino Jr., SECTION [employer]UTTER LAB BLOOD ORDERABLE S Final Result [facility] Department [place] [address] * (ABNORMAL) POC Blood Gas and Chemistries, Arterial - (05/06/2023 1:32 AM ELECTRO OPTICS ENGINEER) pH, Art POC 7.48(H) 7.35 - 7.45 [facility] pCO2, Art POC 47(H) 35 - 45 mmHg [facility] pO2, Art POC 65(L) 83 - 108 mmHg [facility] Na, POC 141 135 - 145 mmol/L [facility] K POC 3.5 3.3 - 4.9 mmol/L [facility] Comment: Interpretive Data This method is not able to assess for hemolysis, which may falsely increase potassium concentrations. If further testing is needed to evaluate this result, consider in-laboratory plasma potassium. Current Interpretive Data was last revised on 2022. Cl, POC 101 97 - 110 mmol/L [facility] Ionized Ca, POC 4.27(L) 4.50 - 5.10 mg/dL [facility] Glucose, POC 122 70 - 199 mg/dL [facility] Lactate, POC 0.7 0.7 - 2.2 mmol/L [facility] SO2 (natalia) arterial 96(H) 90 - 95 % [facility] Base excess, POC 10.2 mmol/L [facility] HCO3, Art POC 35(H) 20 - 30 mmol/L [facility] Hct, POC 32.0(L) 41.4 - 51.6 % [facility] O2 Sat, Art POC (Calc) 94 % [facility] Total Hb, POC 10.7(L) 13.8 - 17.2 g/dL [facility] Blood 05/06/2023 1:32 AM ELECTRO OPTICS ENGINEER 05/06/2023 1:32 AM ELECTRO OPTICS ENGINEER us Faustino Herrera MD LAB POCT ORDERABLES - ROSIE CE Final Result [facility] [place] [address] * (ABNORMAL) Troponin I high-sensitivity 6-hour (05/06/2023 1:28 AM ELECTRO OPTICS ENGINEER) Trop I hs 61(H) <=35 ng/L [facility] Comment: Interpretive Data For further [facility] resources including the diagnostic algorithm and an aid in interpretation, copy and paste this link: [email or web address] Current Interpretive Data last revised 2019. Trop I hs delta -13 ng/L [facility] Trop I hs interp Equivocal [facility] Blood 05/06/2023 1:28 AM ELECTRO OPTICS ENGINEER 05/06/2023 1:46 AM ELECTRO OPTICS ENGINEER Faustino Herrera MD LAB BLOOD ORDERABLES Final Result Performing Organization Address [facility] de Phone Number [facility] [place] [address] * (ABNORMAL) CBC without differential (05/06/2023 1:28 AM ELECTRO OPTICS ENGINEER) WBC 23.8(H) 3.8 - 9.9 K/cumm [facility] Hgb 10.5(L) 13.0 - 17.5 g/dL [facility] Comment: Interpretive Data A reference range for this assay has not been established for patients with an unknown legal sex. Please refer to the laboratory test catalog for established sex-specific reference intervals. Current interpretive data was last revised on 2023. Hct 31.2(L) 38.9 - 50.3 % [facility] Comment: Interpretive Data A reference range for this assay has not been established for patients with an unknown legal sex. Please refer to the laboratory test catalog for established sex-specific reference intervals. Current interpretive data was last revised on 2023. Plt 193 150 - 400 K/cumm [facility] MPV 10.7 9.1 - 12.3 fL [facility] RBC 3.46(L) 4.30 - 5.80 M/cumm [facility] Comment: Interpretive Data A reference range for this assay has not been established for patients with an unknown legal sex. Please refer to the laboratory test catalog for established sex-specific reference intervals. Current interpretive data was last revised on 2023. MCV 90.2 81.3 - 96.4 fL [facility] MCH 30.3 27.1 - 33.3 pg [facility] MCHC 33.7 32.3 - 35.7 g/dL [facility] RDW CV 13.4 11.1 - 14.9 % [facility] RDW SD 44.2 35.7 - 48.1 fL [facility] NRBC abs 0.14(H) 0.00 - 0.01 K/cumm [facility] Blood 05/06/2023 1:28 AM ELECTRO OPTICS ENGINEER 05/06/2023 1:46 AM ELECTRO OPTICS ENGINEER us Faustino Herrera MD LAB BLOOD ORDERABLES Final Result Performing Organization Address City/[facility] Co de Phone Number [facility] Department [place] [employer] [place] [address] * Transfuse platelets (05/05/2023 11:48 PM ELECTRO OPTICS ENGINEER) Blood Result Misty Herrera MD BLOOD TRANSFUSION ORDERABL ES Final Result [facility] [place] [employer] [place] [address] * Transfuse platelets: 2 Units (05/05/2023 11:48 PM ELECTRO OPTICS ENGINEER) Blood us Faustino Herrera MD BLOOD TRANSFUSION ORDERABL ES Final Result * Transfuse platelets (05/05/2023 11:39 PM ELECTRO OPTICS ENGINEER) Blood us Faustino Herrera MD BLOOD TRANSFUSION ORDERABL ES Final Result [facility] Department [place] [address] * Transfuse RBC (05/05/2023 11:18 PM ELECTRO OPTICS ENGINEER) Blood Faustino Herrera MD BLOOD TRANSFUSION ORDERABL ES Final Result [facility] Department [place] [address] * Transfuse RBC: 1 Units (05/05/2023 11:18 PM ELECTRO OPTICS ENGINEER) Blood Faustino Herrera MD BLOOD TRANSFUSION ORDERABL ES Final Result * (ABNORMAL) POC Blood Gas and Chemistries, Arterial - (05/05/2023 9:15 PM ELECTRO OPTICS ENGINEER) pH, Art POC 7.46(H) 7.35 - 7.45 [facility] pCO2, Art POC 48(H) 35 - 45 mmHg [facility] pO2, Art POC 128(H) 83 - 108 mmHg [facility] Na, POC 140 135 - 145 mmol/L [facility] K POC 3.8 3.3 - 4.9 mmol/L [facility] Comment: Interpretive Data This method is not able to assess for hemolysis, which may falsely increase potassium concentrations. If further testing is needed to evaluate this result, consider in-laboratory plasma potassium. Current Interpretive Data was last revised on 2022. Cl, POC 102 97 - 110 mmol/L [facility] Ionized Ca, POC 4.49(L) 4.50 - 5.10 mg/dL [facility] Glucose, POC 140 70 - 199 mg/dL [facility] Lactate, POC 0.8 0.7 - 2.2 mmol/L [facility] SO2 (natalia) arterial 100(H) 90 - 95 % [facility] Base excess, POC 9.1 mmol/L [facility] HCO3, Art POC 34(H) 20 - 30 mmol/L [facility] Hct, POC 30.0(L) 41.4 - 51.6 % [facility] O2 Sat, Art POC (Calc) 99 % [facility] Total Hb, POC 9.9(L) 13.8 - 17.2 g/dL [facility] Blood 05/05/2023 9:15 PM ELECTRO OPTICS ENGINEER 05/05/2023 9:15 PM ELECTRO OPTICS ENGINEER Faustino Herrera MD LAB POCT ORDERABLES - ROSIE CE Final Result Performing Organization Address [facility] de Phone Number [facility] Department [place] [address] * (ABNORMAL) Troponin I high-sensitivity 2-hour (05/05/2023 9:15 PM ELECTRO OPTICS ENGINEER) Pathologist [facility] Trop I hs 68(H) <=35 ng/L [facility] Comment: Interpretive Data For further hscTnI resources including the diagnostic algorithm and an aid in interpretation, copy and paste this link: [email or web address] Current Interpretive Data last revised 2019. Trop I hs delta -6 ng/L [facility] Trop I hs interp Equivocal [facility] Blood 05/05/2023 9:15 PM ELECTRO OPTICS ENGINEER 05/05/2023 9:38 PM ELECTRO OPTICS ENGINEER Faustino Herrera MD LAB BLOOD ORDERABLES Final Result Performing Organization Address [facility] Co de Phone Number [facility] Department [place] [address] * Prepare platelets: 2 Units (05/05/2023 8:17 PM ELECTRO OPTICS ENGINEER) Product code [id number] Unit Number [id number] [facility] Product Blood Type APOS [facility] Dispense Status PRESUMED TRANSFUSED [facility] Blood (Blood, Venous) 05/05/2023 8:17 PM ELECTRO OPTICS ENGINEER 05/05/2023 8:17 PM ELECTRO OPTICS ENGINEER Narrative [facility] - 05/06/2023 4:02 PM ELECTRO OPTICS ENGINEER Specify Procedure:->Lumbar Drain Are special requirements needed? (all products are leukoreduced)->No Date required:-20230505 PLT # of Units:-2-Units Reasons:-Hold for procedure (specify procedure)} Faustino Herrera MD BLOOD BANK PRODUCT ORDERAB LES Final Result Performing Organization Address [facility] de Phone Number [facility] [place] [employer] [place] [address] * aPTT (05/05/2023 8:14 PM ELECTRO OPTICS ENGINEER) aPTT 35 28 - 38 sec [facility] Comment: Interpretive Data Heparin therapeutic range: 66.0 - 100.0 seconds. Range based on correlation with therapeutic heparin activity range of 0.3 - 0.7 Units/mL. Current interpretive data was last revised on 2023. Blood 05/05/2023 8:14 PM ELECTRO OPTICS ENGINEER 05/05/2023 8:22 PM ELECTRO OPTICS ENGINEER Faustino Herrera MD LAB BLOOD ORDERABLES Final Result Performing Organization Address [facility] de Phone Number [facility] [place] [address] * (ABNORMAL) Protime-INR (05/05/2023 8:14 PM ELECTRO OPTICS ENGINEER) PT 16.9(H) 10.3 - 13.7 sec [facility] Comment: No clot detected in sample Repeated and verified - [id number] - 05/05/23, 8:59 PM INR 1.48(H) 0.90 - 1.20 [facility] Comment: No clot detected in sample Repeated and verified - [id number] - 05/05/23, 8:59 PM Interpretive data Oral anticoagulant therapeutic ranges: Venous thromboembolism prophylaxis or treatment: 2.0-3.0 CARDIOLOGY Standard range: 2.0-3.0 High-intensity range: 2.5-3.5 Refer to indication-specific guidelines for appropriate target ranges for prosthetic heart valve replacement. Current interpretive data was last revised on 2019. Blood 05/05/2023 8:14 PM ELECTRO OPTICS ENGINEER 05/05/2023 8:22 PM ELECTRO OPTICS ENGINEER Faustino Herrera MD LAB BLOOD ORDERABLES Final Result Performing Organization Address [facility] de Phone Number [facility] Department [place] [address] * Prepare RBC: 1 Units (05/05/2023 7:56 PM ELECTRO OPTICS ENGINEER) Product code [id number] Unit Number [id number] [facility] Product Blood Type APOS [facility] Dispense Status PRESUMED TRANSFUSED [facility] Blood 05/05/2023 7:56 PM ELECTRO OPTICS ENGINEER 05/05/2023 7:56 PM ELECTRO OPTICS ENGINEER Narrative [facility] - 05/06/2023 12:46 AM ELECTRO OPTICS ENGINEER Other indication->Protocol for c/f spinal cord ischemia Are special requirements needed? (All products are leukoreduced and CMV- safe)- >No Date required:-20230505 LRRBC # of [id number] Reasons:-Other (specify)} Faustino Herrera MD BLOOD BANK PRODUCT ORDERAB LES Final Result Performing Organization Address [facility] de Phone Number [facility] Department [place] [address] * XR Chest 1 View (05/05/2023 7:43 PM ELECTRO OPTICS ENGINEER) Anatomical Region Laterality Modality Body, Chest N/A Computed Radiogr aphy 05/06/2023 7:51 AM ELECTRO OPTICS ENGINEER Impressions 05/06/2023 7:51 AM ELECTRO OPTICS ENGINEER Comparison is made to prior chest radiograph dated 05/04/2023 Endotracheal tube and nasogastric tube have been removed. ??Tip of a right internal jugular central venous catheter terminates in the right atrium. ??Atherosclerotic aortic stent graft is unchanged in position. Lung volumes are small. There is increased left retrocardiac, moderate atelectasis. ??There is mild right basilar atelectasis, increased from prior study. ??No pneumothorax. Heart is unchanged Electronically signed by: Ruthie Malone M.D. Narrative 05/06/2023 7:51 AM ELECTRO OPTICS ENGINEER EXAMINATION: 1 view chest radiograph Procedure Note Ruthie Perry MD - 05/06/2023 EXAMINATION: 1 view chest radiograph IMPRESSION: Comparison is made to prior chest radiograph dated 05/04/2023 Endotracheal tube and nasogastric tube have been removed. Tip of a right internal jugular central venous catheter terminates in the right atrium. Atherosclerotic aortic stent graft is unchanged in position. Lung volumes are small. There is increased left retrocardiac, moderate atelectasis. There is mild right basilar atelectasis, increased from prior study. No pneumothorax. Heart is unchanged Electronically signed by: Ruthie Malone M.D. Deniz BRADFORD IMG XR PROCEDURES Final R esult * (ABNORMAL) POC Blood Gas and Chemistries, Arterial - (05/05/2023 7:22 PM ELECTRO OPTICS ENGINEER) pH, Art POC 7.49(H) 7.35 - 7.45 [facility] pCO2, Art POC 44 35 - 45 mmHg [facility] pO2, Art POC 87 83 - 108 mmHg [facility] Na, POC 140 135 - 145 mmol/L [facility] K POC 3.7 3.3 - 4.9 mmol/L [facility] Comment: Interpretive Data This method is not able to assess for hemolysis, which may falsely increase potassium concentrations. If further testing is needed to evaluate this result, consider in-laboratory plasma potassium. Current Interpretive Data was last revised on 2022. Cl, POC 101 97 - 110 mmol/L [facility] Ionized Ca, POC 4.20(L) 4.50 - 5.10 mg/dL [facility] Glucose, POC 140 70 - 199 mg/dL [facility] Lactate, POC 1.0 0.7 - 2.2 mmol/L [facility] SO2 (natalia) arterial 99(H) 90 - 95 % [facility] Base excess, POC 9.2 mmol/L [facility] HCO3, Art POC 34(H) 20 - 30 mmol/L [facility] Hct, POC 30.0(L) 41.4 - 51.6 % [facility] O2 Sat, Art POC (Calc) 97 % [facility] Total Hb, POC 9.9(L) 13.8 - 17.2 g/dL [facility] Blood 05/05/2023 7:22 PM ELECTRO OPTICS ENGINEER 05/05/2023 7:22 PM ELECTRO OPTICS ENGINEER Faustino Herrera MD LAB POCT ORDERABLES - ROSIE CE Final Result Performing Organization Address [facility] Co de Phone Number [facility] [employer] [place] [address] * (ABNORMAL) Troponin I high-sensitivity series (baseline, 2hr, 4hr, 6hr) (05/05/2023 7:22 PM ELECTRO OPTICS ENGINEER) Pathologist [facility] Trop I hs 74(H) <=35 ng/L [facility] Comment: Interpretive Data For further [facility] resources including the diagnostic algorithm and an aid in interpretation, copy and paste this link: [email or web address] Current Interpretive Data last revised 2019. Blood 05/05/2023 7:22 PM ELECTRO OPTICS ENGINEER 05/05/2023 7:54 PM ELECTRO OPTICS ENGINEER Faustino Herrera MD LAB BLOOD ORDERABLES Final Result Performing Organization Address City/[facility]/ZIP Co de Phone Number [facility] [employer] [address] * ECG 12 lead (05/05/2023 6:56 PM ELECTRO OPTICS ENGINEER) Ventricular Rate EKG/Min 81 BPM [facility] Atrial Rate 81 BPM [facility] AL-Interval (MSEC) 164 ms [facility] QRS-Interval (MSEC) 98 ms [facility] QT-Interval (MSEC) 384 ms [facility] QTc 446 ms [facility] P [place] 57 degrees [facility] R [place] 8 degrees [facility] T [place] 187 degrees [facility] Diagnosis Normal sinus rhythm Left ventricular hypertrophy with repolarization abnormality ( [place] product ) Abnormal ECG No previous ECGs available Confirmed by ADAM VALVERDE M.D ([id number]) on 05/13/2023 11:55:53 AM [facility] 05/05/2023 6:56 PM ELECTRO OPTICS ENGINEER 05/13/2023 11:55 AM ELECTRO OPTICS ENGINEER us Faustino Herrera MD ECG ORDERABLES Final Resu lt [facility] [place] * CTA Chest Abdomen Pelvis (05/05/2023 6:28 PM ELECTRO OPTICS ENGINEER) Anatomical Region Laterality Modality Body N/A Computed Tomogra phy 05/05/2023 6:52 PM ELECTRO OPTICS ENGINEER Impressions 05/05/2023 8:42 PM ELECTRO OPTICS ENGINEER 1. ??Interval postprocedural changes of endovascular repair of a type B thoracic aortic dissection with stent graft extending from the proximal/mid aortic arch to the mid descending thoracic aorta and left subclavian artery stent. ??Unchanged appearance of the residual thoracoabdominal dissection extending to the level of the left common iliac artery. 2. ??New small bilateral pleural effusions with associated atelectasis. Dictated by: Andrea Wilkins M.D. The radiology attending physician has personally reviewed this study, and had reviewed and/or edited this written report and agrees with it. Electronically signed by: Otoniel Avalos M.D. Narrative 05/05/2023 8:42 PM ELECTRO OPTICS ENGINEER EXAMINATION: CT ANGIOGRAPHY OF THE CHEST, ABDOMEN AND PELVIS WITH AND WITHOUT CONTRAST HISTORY: Aortic dissection status post endovascular repair, worsening chest pain TECHNIQUE: ??Computed tomographic images of the chest, abdomen and pelvis were acquired without and intravenous contrast using an angiographic protocol optimized for aortic dissection (aorta). ??The contrast enhanced transaxial images were obtained following the intravenous administration of 100 ml of nonionic contrast. Multiplanar reformatted images and three-dimensional images of the aorta and associated vasculature were obtained on the 3-D workstation and sent to the [employer] system. ?? COMPARISON: 05/02/2023 FINDINGS: ?? Chest: Interval endovascular repair of a thoracic aortic dissection with a stent graft extending from the mid aortic arch to the mid thoracic aorta. ??There is a separate left subclavian stent. Similar appearance of the residual dissection extending from the mid thoracic descending aorta inferiorly into the abdomen to the level of the left common iliac artery. 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 ??The superior mesenteric artery, right renal artery, left renal artery, and inferior mesenteric arteries arise from the true lumen. The heart remains enlarged. ??No pericardial effusion. ??New small bilateral pleural effusions with associated atelectasis. ??No pneumothorax. Abdomen/Pelvis: Arterial enhancing lesion in segment 4 is likely represents a hemangioma. ??The spleen, adrenal glands, and pancreas are normal. High density material in the gallbladder likely represents vicarious excretion of contrast. ??Numerous nonobstructing renal calculi. ??Tiny hypodense renal lesions are too small to be accurately characterize, but likely represent cysts. ??The urinary bladder is decompressed with a Hutton catheter. ??Normal prostate. ??There is no abnormal wall thickening or dilatation of the bowel. ??No bowel obstruction. ??Normal appendix in the right lower quadrant. ??No free intraperitoneal fluid or gas. ??No suspicious abdominal or pelvic lymphadenopathy. ??No aggressive osseous lesion. ??Stranding in the left groin from recent arterial access. Procedure Note Otoniel Avalos MD - 05/05/2023 EXAMINATION: CT ANGIOGRAPHY OF THE CHEST, ABDOMEN AND PELVIS WITH AND WITHOUT CONTRAST HISTORY: Aortic dissection status post endovascular repair, worsening chest pain TECHNIQUE: Computed tomographic images of the chest, abdomen and pelvis were acquired without and intravenous contrast using an angiographic protocol optimized for aortic dissection (aorta). The contrast enhanced transaxial images were obtained following the intravenous administration of 100 ml of nonionic contrast. Multiplanar reformatted images and three-dimensional images of the aorta and associated vasculature were obtained on the 3-D workstation and sent to the [employer] archival system. COMPARISON: 05/02/2023 FINDINGS: Chest: Interval endovascular repair of a thoracic aortic dissection with a stent graft extending from the mid aortic arch to the mid thoracic aorta. There is a separate left subclavian stent. Similar appearance of the residual dissection extending from the mid thoracic descending aorta inferiorly into the abdomen to the level of the left common iliac artery. 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 The superior mesenteric artery, right renal artery, left renal artery, and inferior mesenteric arteries arise from the true lumen. The heart remains enlarged. No pericardial effusion. New small bilateral pleural effusions with associated atelectasis. No pneumothorax. Abdomen/Pelvis: Arterial enhancing lesion in segment 4 is likely represents a hemangioma. The spleen, adrenal glands, and pancreas are normal. High density material in the gallbladder likely represents vicarious excretion of contrast. Numerous nonobstructing renal calculi. Tiny hypodense renal lesions are too small to be accurately characterize, but likely represent cysts. The urinary bladder is decompressed with a Hutton catheter. Normal prostate. There is no abnormal wall thickening or dilatation of the bowel. No bowel obstruction. Normal appendix in the right lower quadrant. No free intraperitoneal fluid or gas. No suspicious abdominal or pelvic lymphadenopathy. No aggressive osseous lesion. Stranding in the left groin from recent arterial access. IMPRESSION: 1. Interval postprocedural changes of endovascular repair of a type B thoracic aortic dissection with stent graft extending from the proximal/mid aortic arch to the mid descending thoracic aorta and left subclavian artery stent. Unchanged appearance of the residual thoracoabdominal dissection extending to the level of the left common iliac artery. 2. New small bilateral pleural effusions with associated atelectasis. Dictated by: Andrea Wilkins M.D. The radiology attending physician has personally reviewed this study, and had reviewed and/or edited this written report and agrees with it. Electronically signed by: Otoniel Avalos M.D. Faustino Herrera MD IM CT PROCEDURES Final Re sult * TRANSTHORACIC ECHO (TTE) LIMITED/FOLLOW UP WO DOPPLER/CF WO CONTRAST W BUBBLE (05/05/2023 4:50 PM ELECTRO OPTICS ENGINEER) Anatomical Region Laterality Modality Ultrasound 05/05/2023 12:0 0 PM ELECTRO OPTICS ENGINEER Narrative 05/05/2023 5:06 PM ELECTRO OPTICS ENGINEER Patient name: Eriberto Chau Date of test: 05/05/2023 Type of test: [facility] #: 0 Date of : 1990 (M) Parts Lister: Ellen Ely RDCS Referring Physician: FAUSTINO HERRERA MD Contrast Agent: Agitated Saline Bubble Study Performed Contrast Administered by: Oralia FRASER Supervised/Interpreted by: Trupti Ulloa MD Diagnosis: Location: [facility] Reason for test: Hypoxia, c/f cardiac shunt MV Structure: , ?MV Motion: , ?? Mitral Annulus: AV Structure: ??and is , ?? AV Motion: Aotic root: , ?TM: , ?? PV: Valvular Vegetations: , ?Mass/Thrombi: RA: Measurements: ?M-Mode ?Normal ? Aotic Root: ? <3.8 ? LA: ? <4.0 ? RV: ? <2.8 ? LV(ED): ? <5.7 ? LV(ES): ? Variable ?2D Linear Normal ? Aotic Root: ? <4.0 ? Ao Indexed: ? <2.0 ? LA: ? <4.0 ? RV: ? <4.2 ? LV(ED): ? <5.9 ? LV(ES): ? <4.0 ?2D Vol. ?? Normal ?Indexed ?? Indexed Normal RA: ? 11-39 ? LA: ? 16-34 ? RV: ? <12.7 ? LV(ED): ? 62-150 ?<75 ? LV(ES): ? 21-61 ? <32 ?3D Vol. ? Indexed Normal LV(ED): ?<75 ? LV(ES): ?<32 ? LV EF: ??% ?? (Normal: >=52%) ?? LV Septum: ??cm ?(Normal: <1.0 cm) Wall Motion Scoring (1=Normal 2=Hypo 3=Akinetic 4=Dyskin./Aneurysm 0=Not visualized) Parasternal Long [place]:MAS=1 BAS=1 MIL=1 GARO=1 Parasternal Short [place]:MAS=1 MIS=1 NJ=1 MIL=1 MAL=1 MA=1 Apical 4 Chambers:=1 MIS=1 BIS=1 BAL=1 MAL=1 AL=1 AC=1 Apical 2 Chambers:AI=1 NJ=1 BI=1 BA=1 MA=1 AA=1 AC=1 LV Global Longitudinal Strain: RV Global Longitudinal Strain: LV Function: MIld-moderately decreased systolic function. RV Function: NOT WELL SEEN Septal Motion: Pericardial Effusion: none seen Atrial Septum: DOPPLER/COLOR FLOW DOPPLER RESULTS: Diastolic Function: Tricuspid Valve: Pulmonic Valve: AV Regurgitation: AV Stenosis: AV Area: ??cm2 AV Pressure Gradient (mmHg): Mean: 0, Peak:0 MV Regurgitation: MV Stenosis: MV Area: ??cm2 MV Pressure Gradient (mmHg): Mean: 0 MV ERO: ??cm Regurg. Vol.: ??ml/beat Regurg. Frac.: ??% PA Pressure: ??mmHg DOPPLER/COLOR FOLOW DOPPLER COMMENTS: CONTRAST: Agitated Saline Bubble Study Performed SUMMARY: Limted TTE for shunt eval. LV systolic function appears mildly-moderately decreased overall. Saline contrast study positive for right to left shunting only with Valsalva, most consistent with PFO. Confirmed on ??05/05/2023 - 17:06:47 by Trupti Ulloa MD By signing this report, the attending optical designer certifies that he or she has personally supervised and interpreted the echocardiogram and has reviewed and or edited and agrees with the written comments contained within the report. Procedure Note Trupti Ulloa MD - 05/05/2023 Patient name: Eriberto Chau Date of test: 05/05/2023 Type of test: [facility] #: 0 Date of : 1990 (M) Parts Lister: Ellen Ely [facility] Referring Physician: FAUSTINO HERRERA MD Contrast Agent: Agitated Saline Bubble Study Performed Contrast Administered by: Oralia FRASER Supervised/Interpreted by: Trupti Ulloa MD Diagnosis: Location: [facility] Reason for test: Hypoxia, c/f cardiac [...] 2=Hypo 3=Akinetic 4=Dyskin./Aneurysm 0=Not visualized) Parasternal Long [place]:MAS=1 BAS=1 MIL=1 GARO=1 Parasternal Short [place]:MAS=1 MIS=1 NJ=1 MIL=1 MAL=1 MA=1 Apical 4 Chambers:=1 MIS=1 BIS=1 BAL=1 MAL=1 AL=1 AC=1 Apical 2 Chambers:AI=1 NJ=1 BI=1 BA=1 MA=1 AA=1 AC=1 LV Global [...] MD By signing this report, the attending optical designer certifies that he or she has personally supervised and interpreted the echocardiogram and has reviewed and or edited and agrees with the written comments contained within the report. us Faustino Herrera MD CV ECHO PROCEDURES Final R esult * Critical Care (05/05/2023 1:24 PM ELECTRO OPTICS ENGINEER) Narrative Carline Jerome MD - 05/05/2023 1:24 PM ELECTRO OPTICS ENGINEER Carline Jerome MD ? 05/05/2023 ??1:25 PM Critical Care Performed by: Carline Jerome MD Authorized by: Carline Jerome MD ?? CRITICAL CARE: ??Team: ??[id number] CTICU ??Shift: [...] plan with the ICU team and other medical/sap security consultant staff, making frequent assessments and decisions [...] or life-threatening deterioration of the following conditions: ?This time was spent by me doing the following: ? Active problems: 1. Aortic dissection s/p stent starting at zone 1 and stenting of left subclavian. 2. Postoperative respiratory failure 3. Leukocytosis 4. Mild thrombocytopenia 5. Anemia Attending Impression / Plans: 1. Wean off sedation for possible extubation. 2. Cont carvedilol and lisinopril. PRN clevidipine as needed. 3. Cont bumex for diuresis. Decrease dose to 2 mg q 8 hourly and consider holding evening dose, 4. Awaiting bubble study to R/O PFO. However this seems less likely since he is no longer hypoxemic. 5. Cont linezolid and meropenem (empirically). WBC remains elevated.Blood cultures negative to date. Obtain sputum culture prior to extubation. 6. Mild anemia: cont to trend. Thrombocytopenia is mild and of no clinical concern. 7. Cont to trend art line pressure and NIBP on left and right arm. 8. Cont SQH for DVT prophylaxis. Update: Patient has been succesfully extubated. He has no further respiratory distress. BP control has been difficult at times. Cont to uptitrate lisinopril and add diltiazem. Keep clevidipine for now for acute titration of hypertension. Cardiology consult (Dr Abarca) to follow and make recommendations regarding hypertension management in setting of recent aortic dissection. ?? I spent time reviewing and interpreting data from bedside monitors, laboratory results, and imaging, I spent time discussing the management of this critically ill patient with consultants and the medical staff and I spent time documenting in the medical record us Carline Jerome MD IN CLINIC/BEDSIDE ORDERABL ES Final Result * Pneumonia PCR Tracheal aspirate (05/05/2023 11:27 AM ELECTRO OPTICS ENGINEER) C. pneumoniae DNA Not Detected Not Detected [facility] Legionella pneumophila DNA Not Detected Not Detected [facility] M. pneumoniae DNA Not Detected Not Detected [facility] Adenovirus DNA Not Detected Not Detected [facility] Coronavirus (229E, OC43, HKU1, NL63) RNA Not Detected Not Detected [facility] Metapneumovirus RNA Not Detected Not Detected [facility] Rhinovirus/Enterov irus RNA Not Detected Not Detected [facility] Influenza A RNA Not Detected Not Detected [facility] Influenza B RNA Not Detected Not Detected [facility] Parainfluenza virus (1-4) RNA Not Detected Not Detected [facility] RSV RNA Not Detected Not Detected [facility] Tracheal aspirate 05/05/2023 11:27 AM ELECTRO OPTICS ENGINEER 05/05/2023 2:45 PM ELECTRO OPTICS ENGINEER Narrative [facility] - 05/05/2023 4:23 PM ELECTRO OPTICS ENGINEER The BioFire Pneumonia Panel is a multiplexed nucleic acid test capable of simultaneous detection and identification of multiple respiratory viruses and bacteria. ??This panel detects Adenovirus, coronaviruses (Coronavirus HKU1, Coronavirus NL63, Coronavirus 229E, and Coronavirus OC43), Influenza A, Influenza B, Human metapneumovirus, Parainfluenza (1-4), RSV, Rhinovirus/Enterovirus, Chlamydia pneumoniae, Mycoplasma pneumoniae, and Legionella pneumophila. Additional aerobic bacterial targets are reported with the accompanying culture results with the same accession number. Rhinovirus and Enterovirus are genetically similar and cannot be reliably differentiated with this method. Negative adenovirus results should be confirmed by an alternative methodology (i.e. standalone PCR) if the suspicion for adenovirus infection is high. ??The results of this test must be considered in the clinical context of the patient and should not be used as the sole basis for diagnosis, treatment, or other management decisions. ??Negative results in the setting of a respiratory illness may be due to infection with pathogens that are not detected by this test. ??Positive results do not rule out infection/co-infection with other organisms. The Jascha Pneumonia Panel is FDA cleared for lower respiratory tract specimens. The performance characteristics of this assay have been determined by [facility]. Current interpretive data was last revised on 2021. Sheila BRADFORD LAB MICROBIOLOGY - GENERAL ORDERABLES Final Result [facility] Department [place] [address] * (ABNORMAL) Pneumonia PCR with aerobic culture and Gram stain Tracheal aspirate (05/05/2023 11:27 [facility]) Direct Specimen Exam Molecular Analysis: 10^6 copies/mL Haemophilus influenzae Correlation of molecular analysis with final culture results is recommended. [facility] Direct Specimen Exam Stain: Abundant polymorphonuclear leukocytes seen. No squamous epithelial cells seen. No organisms seen. [facility] Report Final Report: Insignificant growth based on current clinical standards. (.) [facility] Tracheal aspirate 05/05/2023 11:27 AM ELECTRO OPTICS ENGINEER 05/05/2023 12:55 PM ELECTRO OPTICS ENGINEER Narrative [facility] - 05/07/2023 11:21 AM ELECTRO OPTICS ENGINEER When rapid molecular testing results are reported, testing completed using the BoombotixArray Pneumonia Panel. ??This molecular assay detects: Acinetobacter calcoaceticus-baumannii complex, Enterobacter cloacae complex, Escherichia coli, Haemophilus influenzae, Enterobacter (Klebsiella) aerogenes, ??Klebsiella oxytoca, Klebsiella pneumoniae group, Moraxella catarrhalis, Proteus spp., Pseudomonas aeruginosa, Serratia marcescens, Staphylococcus aureus, Streptococcus agalactiae, Streptococcus pneumoniae, and Streptococcus pyogenes. ?? These bacteria are detected and reported semi-quantitatively with bins representing approximately 10^4, 10^5, 10^6, or greater than or equal to 10^7 genomic copies of bacterial nucleic acid per mL (copies/mL) of specimen. ??These quantities are reported to aid in estimating the relative abundance of organism(s) detected within the specimen and to correlate these results with culture results. ?? For Staphylococcus aureus, mecA/C and MREJ genes are evaluated to predict methicillin resistance or susceptibility. ??For Gram-negative bacteria, the beta-lactamases CTX-M, IMP, KPC, NDM, VIM and OXA-48-like are evaluated and reported if detected. ??For Gram-negative organisms, the absence of detection of resistance markers does not exclude resistance. ?? Correlation with final culture results and susceptibility testing is recommended. The FilmArray Pneumonia Panel is cleared by the [place] Food and Drug Administration and its performance characteristics have been confirmed by the [facility]. ??The performance of the FilmArray Pneumonia Panel has not been established for monitoring treatment of infection and bacterial nucleic acids may persist independent of organism viability. Sheila BRADFORD LAB MICROBIOLOGY - GENERAL ORDERABLES Final Result [facility] Department [place] [address] * AL DIAGNOSTIC LUMBAR SPINAL PUNCTURE (05/05/2023 10:05 AM ELECTRO OPTICS ENGINEER) Narrative Shira Dodson MD - 05/05/2023 10:05 AM ELECTRO OPTICS ENGINEER Shira Dodson MD ? 2023 ??3:17 PM Lumbar Drain Date/Time: 05/05/2023 10:05 AM Performed by: Shira Dodson MD Authorized by: Shira Dodson MD ?? [place] Protocol: RN Notified of Procedure: yes ?? Informed consent present: Consent obtained from family by ICU team. Allergies confirmed: yes ?? Imaging: ??Pertinent imaging reviewed, correctly oriented and match to patient identifiers Lab/Diag test results: ??Pertinent lab/diag tests reviewed and match to patient identifiers (INR 1.48 PLT 132 PTT 35)Immediately prior to the procedure a time out was called: a verbal verification by the procedure participants confirmed correct patient identity, correct site/side marked and visible (if applicable); agreement on procedure to be done; and correct patient positioning ?? Indications: Placement for therapuetic CSF drainage for enhanced spinal cord perfusion. Anesthesia (see MAR for exact dosage) Anesthesia method: ??Local infiltration Local anesthetic: ??Lidocaine 1% Patient prepararion: ??Cap, gloves, handwashing, mask and partial body drape Skin preparation: ??Skin prepped with 2% chlorhexidine Lumbar space: ??L4-L5 interspace (L3 -L4 and L4 -L5) Patient position: Initially sitting then lateral decubitus. Needle gauge: 17G. Number of attempts: ??3 Patient tolerance: ??Patient tolerated the procedure well with no immediate complications Post Procedure Debrief: All guidewires, needles, sponges or other items are accounted for: yes ?? Asked to place lumbar drain for patient that had diminished lower extremity strength following a TEVAR. Informed that neurosurgery initially consulted but had deferred placement. Discussed with on service attending Jerome given the coagulation profile and decision made to attempt lumbar drain placement with no sedation as patient had been exhibiting confusion throughout the day. Initial attempt made with patient sitting up. Unable to cooperate, therefore attempt in the upright position was abandoned. Further attempts made in the lateral decubitus position also limited by patient movement. Discussed with team, was informed that neurosurgery now available to place drain. Abandoned further attempts in favor of neurosurgical team performing procedure under sedation. us Shira Dodson MD IN CLINIC/BEDSIDE ORDERA BLES Final Result * (ABNORMAL) Blood gas, arterial (05/05/2023 8:21 AM ELECTRO OPTICS ENGINEER) pH, Art 7.42 7.35 - 7.45 [facility] PCO2, Arterial 52(H) 35 - 45 mmHg [facility] PO2, Arterial 117(H) 83 - 108 mmHg [facility] HCO3 Art (Calculated) 34(H) 20 - 30 mmol/L [facility] BE, art 8 mmol/L [facility] Comment: Interpretive Data No Reference Range Established Current Interpretive Data was last revised on 2017 O2 Sat Art (Measured) 99(H) 90 - 95 % [facility] Blood 05/05/2023 8:21 AM ELECTRO OPTICS ENGINEER 05/05/2023 8:28 AM ELECTRO OPTICS ENGINEER Faustino Herrera MD LAB BLOOD ORDERABLES Final Result Performing Organization Address City/[facility] Co de Phone Number [facility] Department [place] [address] * Lactate (05/05/2023 8:21 AM ELECTRO OPTICS ENGINEER) Lactate 0.8 0.7 - 2.0 mmol/L [facility] Blood 05/05/2023 8:21 AM ELECTRO OPTICS ENGINEER 05/05/2023 8:27 AM ELECTRO OPTICS ENGINEER Alonzo Duncan MD LAB BLOOD ORDERABLES Fin al Result Performing Organization Address [facility] de Phone Number [facility] Department [place] [address] * (ABNORMAL) Blood gas, arterial (05/05/2023 4:51 AM ELECTRO OPTICS ENGINEER) pH, Art 7.40 7.35 - 7.45 [facility] PCO2, Arterial 51(H) 35 - 45 mmHg [facility] PO2, Arterial 118(H) 83 - 108 mmHg [facility] HCO3 Art (Calculated) 32(H) 20 - 30 mmol/L [facility] BE, art 5 mmol/L [facility] Comment: Interpretive Data No Reference Range Established Current Interpretive Data was last revised on 2017 O2 Sat Art (Measured) 99(H) 90 - 95 % [facility] Blood 05/05/2023 4:51 AM ELECTRO OPTICS ENGINEER 05/05/2023 5:43 AM ELECTRO OPTICS ENGINEER Faustino Herrera MD LAB BLOOD ORDERABLES Final Result Performing Organization Address [facility] de Phone Number [facility] Department [place] [address] * Potassium, whole blood (05/05/2023 4:51 AM ELECTRO OPTICS ENGINEER) Potassium, bld 4.2 3.3 - 4.9 mmol/L [facility] Blood 05/05/2023 4:51 AM ELECTRO OPTICS ENGINEER 05/05/2023 5:43 AM ELECTRO OPTICS ENGINEER us Anderson Tolentino Jr., TREE LAB BLOOD ORDERABLE S Edited Result - Final [facility] [place] [address] * eGFR (05/05/2023 12:12 AM ELECTRO OPTICS ENGINEER) Pathologist [facility] eGFR 89 >=60 mL/min/1. 73 m2 [facility] Comment: Interpretive Data Reference Interval Normal [...] interpretive data was last reviewed 2021. Blood 05/05/2023 12:1 2 AM ELECTRO OPTICS ENGINEER 05/05/2023 12:20 AM ELECTRO OPTICS ENGINEER Alonzo Duncan MD LAB BLOOD ORDERABLES Fin al Result Performing Organization Address [facility] Co de Phone Number [facility] [place] [address] * Phosphorus (05/05/2023 12:12 AM ELECTRO OPTICS ENGINEER) Pathologist [facility] Phosphorus, pl 2.9 2.3 - 4.5 mg/dL [facility] Blood 05/05/2023 12:1 2 AM ELECTRO OPTICS ENGINEER 05/05/2023 12:20 AM ELECTRO OPTICS ENGINEER Faustino Herrera MD LAB BLOOD ORDERABLES Final Result Performing Organization Address [facility] de Phone Number [facility] [place] [address] * Magnesium (05/05/2023 12:12 AM ELECTRO OPTICS ENGINEER) [facility] Magnesium 1.8 1.4 - 2.5 mg/dL [facility] Blood 05/05/2023 12:1 2 AM ELECTRO OPTICS ENGINEER 05/05/2023 12:20 AM ELECTRO OPTICS ENGINEER Faustino Herrera MD LAB BLOOD ORDERABLES Final Result Performing Organization Address [facility] de Phone Number [facility] [place] [address] * (ABNORMAL) Basic metabolic panel (05/05/2023 12:12 AM ELECTRO OPTICS ENGINEER) [facility] Sodium 145 135 - 145 mmol/L [facility] Potassium, pl 4.4 3.3 - 4.9 mmol/L [facility] Chloride 106 97 - 110 mmol/L [facility] CO2 30 22 - 32 mmol/L [facility] Anion gap 9 2 - 15 mmol/L [facility] BUN 9 6 - 25 mg/dL [facility] Creatinine 1.14 0.80 - 1.30 mg/dL [facility] Glucose 126 70 - 199 mg/dL [facility] Comment: Interpretive Data Fasting glucose >/= [...] interpretive data was last revised 2022. Calcium 8.1(L) 8.5 - 10.3 mg/dL [facility] Blood 05/05/2023 12:1 2 AM ELECTRO OPTICS ENGINEER 05/05/2023 12:20 AM ELECTRO OPTICS ENGINEER us Faustino Herrera MD LAB BLOOD ORDERABLES Final Result [facility] Department [place] [address] * (ABNORMAL) CBC without differential (05/05/2023 12:12 AM ELECTRO OPTICS ENGINEER) Pathologist [facility] WBC 16.4(H) 3.8 - 9.9 K/cumm [facility] Hgb 9.4(L) 13.0 - 17.5 g/dL [facility] Comment: Interpretive Data A reference range for this assay has not been established for patients with an unknown legal sex. Please refer to the laboratory test catalog for established sex-specific reference intervals. Current interpretive data was last revised on 2023. Hct 27.9(L) 38.9 - 50.3 % [facility] Comment: Interpretive Data A reference range for this assay has not been established for patients with an unknown legal sex. Please refer to the laboratory test catalog for established sex-specific reference intervals. Current interpretive data was last revised on 2023. Plt 132(L) 150 - 400 K/cumm [facility] MPV 10.3 9.1 - 12.3 fL [facility] RBC 3.10(L) 4.30 - 5.80 M/cumm [facility] Comment: Interpretive Data A reference range for this assay has not been established for patients with an unknown legal sex. Please refer to the laboratory test catalog for established sex-specific reference intervals. Current interpretive data was last revised on 2023. MCV 90.0 81.3 - 96.4 fL [facility] MCH 30.3 27.1 - 33.3 pg [facility] MCHC 33.7 32.3 - 35.7 g/dL [facility] RDW CV 13.3 11.1 - 14.9 % [facility] RDW SD 43.4 35.7 - 48.1 fL [facility] NRBC abs 0.04(H) 0.00 - 0.01 K/cumm [facility] Blood 05/05/2023 12:1 2 AM ELECTRO OPTICS ENGINEER 05/05/2023 12:20 AM ELECTRO OPTICS ENGINEER Faustino Herrera MD LAB BLOOD ORDERABLES Final Result [facility] Department [place] [address] * (ABNORMAL) Blood gas, arterial (05/04/2023 10:30 PM ELECTRO OPTICS ENGINEER) pH, Art 7.40 7.35 - 7.45 [facility] PCO2, Arterial 46(H) 35 - 45 mmHg [facility] PO2, Arterial 101 83 - 108 mmHg [facility] HCO3 Art (Calculated) 30 20 - 30 mmol/L [facility] BE, art 4 mmol/L [facility] Comment: Interpretive Data No Reference Range Established Current Interpretive Data was last revised on 2017 O2 Sat Art (Measured) 99(H) 90 - 95 % [facility] Blood 05/04/2023 10:3 0 PM ELECTRO OPTICS ENGINEER 05/04/2023 10:39 PM ELECTRO OPTICS ENGINEER us Faustino Herrera MD LAB BLOOD ORDERABLES Final Result Performing Organization Address [facility] de Phone Number [facility] [place] [address] * Potassium, whole blood (05/04/2023 10:30 PM ELECTRO OPTICS ENGINEER) Potassium, bld 4.6 3.3 - 4.9 mmol/L [facility] Blood 05/04/2023 10:3 0 PM ELECTRO OPTICS ENGINEER 05/04/2023 10:39 PM ELECTRO OPTICS ENGINEER us Anderson Tolentino Jr., TREE LAB BLOOD ORDERABLE S Final Result Performing Organization Address [facility] de Phone Number [facility] [place] [address] * (ABNORMAL) Triglycerides (05/04/2023 10:30 PM ELECTRO OPTICS ENGINEER) Triglycerides 179(H) <=149 mg/dL [facility] Comment: Interpretive Data Ages < or [...] Data was last revised on 2018. Blood 05/04/2023 10:3 0 PM ELECTRO OPTICS ENGINEER 05/04/2023 10:42 PM ELECTRO OPTICS ENGINEER us Radha Duran SECTION CUTTER LAB BLOOD ORDERABLES Final Re sult [facility]ON [facility] Department [place] [address] * XR Chest 1 View (05/04/2023 8:58 PM ELECTRO OPTICS ENGINEER) Anatomical Region Laterality Modality Body, Chest N/A Computed Radiogr aphy 05/05/2023 9:48 AM ELECTRO OPTICS ENGINEER Impressions 05/05/2023 11:41 AM ELECTRO OPTICS ENGINEER The current study is compared with the prior radiograph dated ??05/03/2023 10:12 PM. ?? An endotracheal tube terminates approximately 4 cm above the sommer. A gastric tube courses below the diaphragm with tip outside of the field of view. ??A right internal jugular central venous catheter terminates in the right atrium. ??There is a thoracic aortic endovascular graft stent and left subclavian artery stent. ?? There is a small left pleural effusion and moderate left atelectasis, unchanged. ??Moderate right atelectasis is unchanged. ??No definite pleural effusion on the right. ??No pulmonary edema. ??No pneumothorax. The cardiomediastinal silhouette is stable. Dictated by: Shady Childers MD The radiology attending physician has personally reviewed this study, and had reviewed and/or edited this written report and agrees with it. Electronically signed by: Marlee Jimenez M.D. Narrative 05/05/2023 11:41 AM ELECTRO OPTICS ENGINEER EXAMINATION: 1 view chest radiograph Procedure Note Marlee Jimenez MD - 05/05/2023 EXAMINATION: 1 view chest radiograph IMPRESSION: The current study is compared with the prior radiograph dated 05/03/2023 10:12 PM. An endotracheal tube terminates approximately 4 cm above the sommer. A gastric tube courses below the diaphragm with tip outside of the field of view. A right internal jugular central venous catheter terminates in the right atrium. There is a thoracic aortic endovascular graft stent and left subclavian artery stent. There is a small left pleural effusion and moderate left atelectasis, unchanged. Moderate right atelectasis is unchanged. No definite pleural effusion on the right. No pulmonary edema. No pneumothorax. The cardiomediastinal silhouette is stable. Dictated by: Shady Childers MD The radiology attending physician has personally reviewed this study, and had reviewed and/or edited this written report and agrees with it. Electronically signed by: Marlee Jimenez M.D. us Deniz Ireland PA IMG XR PROCEDURES Final R esult * Potassium, whole blood (05/04/2023 6:31 PM ELECTRO OPTICS ENGINEER) [facility] Potassium, bld 3.8 3.3 - 4.9 mmol/L [facility] Blood 05/04/2023 6:31 PM ELECTRO OPTICS ENGINEER 05/04/2023 6:39 PM ELECTRO OPTICS ENGINEER us Anderson Tolentino Jr., TREE LAB BLOOD ORDERABLE S Final Result Performing Organization Address City/State/[facility] Co de Phone Number [facility] [place] [address] * Critical Care (05/04/2023 3:00 PM ELECTRO OPTICS ENGINEER) Narrative Carline Jerome MD - 05/04/2023 3:00 PM ELECTRO OPTICS ENGINEER Carline Jerome MD ? 05/04/2023 ??3:01 PM Critical Care Performed by: Carline Jerome MD Authorized by: Carline Jerome MD ?? CRITICAL CARE: ??Team: ??83 CTICU ??Shift: [...] plan with the ICU team and other medical/sap security consultant staff, making frequent assessments and decisions [...] or life-threatening deterioration of the following conditions: ?This time was spent by me doing the following: ? Active problems: 1. Aortic dissection s/p stent starting at zone 1 and stenting of left subclavian. 2. Postoperative respiratory failure 3. Leukocytosis 4. Mild thrombocytopenia 5. Headache. 6. Anemia Attending Impression / Plans: 1. Concern for esmolol tachyphylaxis. Will give 10 mg IV metoprolol now and assess esmolol needs. 2. Cont diuresis with bumex. CXR cont to show pulmonary edema but CXR is improving. 3. Cont low dose Precedex with PRN midazolam and ketamine. Resume propofol once Triglycerides have normalized. 4. Awaiting TTE with bubble study to evaluate for possible PFO. Hypoxemia could also be related to shunting with clevidipine. 5. Mild anemia: cont to follow. No active bleeding seen. 6. Cont empiric antibiotics: All cultures remains negative thus far. 7. Mild thrombocytopenia: no clinical concern. 8. Cont SQH for DVT prophylaxis. ?? I spent time reviewing and interpreting data from bedside monitors, laboratory results, and imaging, I spent time discussing the management of this critically ill patient with consultants and the medical staff and I spent time documenting in the medical record us Carline Jerome MD IN CLINIC/BEDSIDE ORDERABL ES Final Result * POCT glucose (05/04/2023 1:42 PM ELECTRO OPTICS ENGINEER) Glucose, POC 108 70 - 199 mg/dL [facility] Blood 05/04/2023 1:42 PM ELECTRO OPTICS ENGINEER 05/04/2023 1:42 PM ELECTRO OPTICS ENGINEER Faustino Herrera MD LAB POCT ORDERABLES - ROSIE CE Final Result [facility] Department [place] [address] * Potassium, whole blood (05/04/2023 11:27 AM ELECTRO OPTICS ENGINEER) [facility] Potassium, bld 4.2 3.3 - 4.9 mmol/L [facility] Comment:Hemolyzed; results m ay be falsely elevated. Blood 05/04/2023 11:2 7 AM ELECTRO OPTICS ENGINEER 05/04/2023 11:34 AM ELECTRO OPTICS ENGINEER us Anderson Tolentino Jr., SECTION CUTTER LAB BLOOD ORDERABLE S Final Result Performing Organization Address City/[facility] Co de Phone Number [facility] [place] [address] * (ABNORMAL) Blood gas, arterial (05/04/2023 11:23 AM ELECTRO OPTICS ENGINEER) [facility] pH, Art 7.33(L) 7.35 - 7.45 [facility] PCO2, Arterial 44 35 - 45 mmHg [facility] PO2, Arterial 177(H) 83 - 108 mmHg [facility] HCO3 Art (Calculated) 24 20 - 30 mmol/L [facility] BE, art -2 mmol/L [facility] Comment: Interpretive Data No Reference Range Established Current Interpretive Data was last revised on 2017 O2 Sat Art (Measured) 99(H) 90 - 95 % [facility] Blood 05/04/2023 11:2 3 AM ELECTRO OPTICS ENGINEER 05/04/2023 11:34 AM ELECTRO OPTICS ENGINEER us Faustino Herrera MD LAB BLOOD ORDERABLES Final Result [facility] [place] [address] * Type and screen (05/04/2023 11:23 AM ELECTRO OPTICS ENGINEER) [facility] ABO Rh A Positive Eleln, indirect Negative [facility] Blood 05/04/2023 11:2 3 AM ELECTRO OPTICS ENGINEER 05/04/2023 11:38 AM ELECTRO OPTICS ENGINEER Narrative [facility] - 05/04/2023 12:43 PM ELECTRO OPTICS ENGINEER Has the patient had Daratumumab or Isatuximab in the past 6 months?->Unknown Faustino Herrera MD LAB BLOOD BANK TEST ORDERA BLES Final Result Performing Organization Address City/[facility]/ZIP Co de Phone Number [facility] [place] [address] * POCT glucose (05/04/2023 7:48 AM ELECTRO OPTICS ENGINEER) Glucose, POC 99 70 - 199 mg/dL [facility] Blood 05/04/2023 7:48 AM ELECTRO OPTICS ENGINEER 05/04/2023 7:48 AM ELECTRO OPTICS ENGINEER Faustino Herrera MD LAB POCT ORDERABLES - ROSIE CE Final Result Performing Organization Address [facility] [facility] Co de Phone Number [facility] [place] [address] * (ABNORMAL) POC Blood Gas and Chemistries, Arterial - (05/04/2023 3:03 AM ELECTRO OPTICS ENGINEER) pH, Art POC 7.34(L) 7.35 - 7.45 [facility] pCO2, Art POC 38 35 - 45 mmHg [facility] pO2, Art POC 73(L) 83 - 108 mmHg [facility] Na, POC 141 135 - 145 mmol/L [facility] K POC 3.5 3.3 - 4.9 mmol/L [facility] Comment: Interpretive Data This method is not able to assess for hemolysis, which may falsely increase potassium concentrations. If further testing is needed to evaluate this result, consider in-laboratory plasma potassium. Current Interpretive Data was last revised on 2022. Cl, POC 112(H) 97 - 110 mmol/L [facility] Ionized Ca, POC 4.33(L) 4.50 - 5.10 mg/dL [facility] Glucose, POC 115 70 - 199 mg/dL [facility] Lactate, POC 0.8 0.7 - 2.2 mmol/L [facility] SO2 (natalia) arterial 97(H) 90 - 95 % [facility] Base excess, POC -4.8 mmol/L [facility] HCO3, Art POC 20 20 - 30 mmol/L [facility] Hct, POC 26.0(L) 41.4 - 51.6 % [facility] O2 Sat, Art POC (Calc) 94 % [facility] Total Hb, POC 8.7(L) 13.8 - 17.2 g/dL [facility] Blood 05/04/2023 3:03 AM ELECTRO OPTICS ENGINEER 05/04/2023 3:03 AM ELECTRO OPTICS ENGINEER Faustino Herrera MD LAB POCT ORDERABLES - ROSIE CE Final Result Performing Organization Address [facility] de Phone Number [facility] Department [place] [employer] [place] [address] * (ABNORMAL) Urinalysis, microscopic only (05/04/2023 2:14 AM ELECTRO OPTICS ENGINEER) Pathologist [facility] WBC, ur 0-5 0 - 5 /HPF [facility] RBC, ur >50(A) 0 - 2 /HPF [facility] Mucous, ur Present(A) [facility] Hyaline casts, ur 1-5 0 - 10 /LPF [facility] Urine 05/04/2023 2:14 AM ELECTRO OPTICS ENGINEER 05/04/2023 2:21 AM ELECTRO OPTICS ENGINEER Faustino Herrera MD LAB URINE ORDERABLES Final Result Performing Organization Address [facility] Co de Phone Number [facility] [place] [address] * (ABNORMAL) Urinalysis reflex to microscopic (05/04/2023 2:14 AM ELECTRO OPTICS ENGINEER) Color, ur Straw Yellow [facility] Clarity, ur Clear Clear [facility] Specific gravity, ur 1.011 1.003 - 1.030 [facility] pH, urine 5.5 [facility] Comment: Interpretive Data ? Urine pH is affected by diet, medications, systemic acid-base disturbances, and renal tubular function. ??pH may affect urinary stone formation. ??For example, urine pH below 6.0 may help reduce the tendency for calcium phosphate stones and pH greater than 6.0 may reduce the tendency for uric acid stone formation. Source: [facility] [employer] Current Interpretive Data was last revised on 2017 Protein, ur ql Trace Negative [facility] Glucose, ur ql Negative Negative [facility] Ketones, ur Negative Negative [facility] Bilirubin, ur Negative Negative [facility] Blood, ur 3+(A) Negative [facility] Urobilinogen, ur <2.0 <2.0 mg/dL [facility] Nitrite, ur Negative Negative [facility] Leukocyte esterase, ur Negative Negative [facility] UA reflex comment Reflex to microscopic UA will be performed. [facility] Urine 05/04/2023 2:14 AM ELECTRO OPTICS ENGINEER 05/04/2023 2:21 AM ELECTRO OPTICS ENGINEER us Faustino Herrera MD LAB URINE ORDERABLES Final Result Performing Organization Address City/State/[facility] Co de Phone Number [facility] Department [place] [address] * eGFR (05/04/2023 1:20 AM ELECTRO OPTICS ENGINEER) eGFR 71 >=60 mL/min/1. 73 m2 [facility] Comment: Interpretive Data Reference Interval Normal [...] interpretive data was last reviewed 2021. Blood 05/04/2023 1:20 AM ELECTRO OPTICS ENGINEER 05/04/2023 1:42 AM ELECTRO OPTICS ENGINEER Alonzo Duncan MD LAB BLOOD ORDERABLES Fin al Result Performing Organization Address [facility] de Phone Number [facility] [place] [address] * (ABNORMAL) Blood gas, arterial (05/04/2023 1:20 AM ELECTRO OPTICS ENGINEER) pH, Art 7.32(L) 7.35 - 7.45 [facility] PCO2, Arterial 42 35 - 45 mmHg [facility] PO2, Arterial 90 83 - 108 mmHg [facility] HCO3 Art (Calculated) 22 20 - 30 mmol/L [facility] BE, art -4 mmol/L [facility] Comment: Interpretive Data No Reference Range Established Current Interpretive Data was last revised on 2017 O2 Sat Art (Measured) 97(H) 90 - 95 % [facility] Blood 05/04/2023 1:20 AM ELECTRO OPTICS ENGINEER 05/04/2023 1:44 AM ELECTRO OPTICS ENGINEER Faustino Herrera MD LAB BLOOD ORDERABLES Final Result Performing Organization Address [facility] Co de Phone Number [facility] [place] [address] * Blood culture Blood (05/04/2023 1:20 AM ELECTRO OPTICS ENGINEER) Report Final Report: No growth JAIRON COLON Blood 05/04/2023 1:20 AM ELECTRO OPTICS ENGINEER 05/04/2023 1:44 AM ELECTRO OPTICS ENGINEER Narrative JAIRON COLON - 05/08/2023 7:01 AM ELECTRO OPTICS ENGINEER Collection->Peripheral 1. ?Blood cultures are incubated for [...] organism identification may be performed using the [employer] Gram-Positive Blood Culture Assay. This assay detects microbial DNA in positive blood culture broth via hybridization of target DNA to capture oligonucleotides on a microarray. This assay has been cleared by the [place] Food and Drug Administration and its performance characteristics have been verified by the [facility]. 5. ?For questions about this culture, contact the Microbiology Laboratory at [phone]. Interpretive data was last revised on 2019. Faustino Herrera MD LAB MICROBIOLOGY - GENERAL ORDERABLES Final Result JAIRON COLON [facility] Department [place] [address] * Blood culture Blood (05/04/2023 1:20 AM ELECTRO OPTICS ENGINEER) Report Final Report: No growth JAIRON COLON Blood 05/04/2023 1:20 AM ELECTRO OPTICS ENGINEER 05/04/2023 1:44 AM ELECTRO OPTICS ENGINEER Narrative JAIRON ERWIN - 05/08/2023 7:01 AM ELECTRO OPTICS ENGINEER Collection->Peripheral 1. ?Blood cultures are incubated for [...] organism identification may be performed using the [employer] Gram-Positive Blood Culture Assay. This assay detects microbial DNA in positive blood culture broth via hybridization of target DNA to capture oligonucleotides on a microarray. This assay has been cleared by the [place] Food and Drug Administration and its performance characteristics have been verified by the [facility]. 5. ?For questions about this culture, contact the Microbiology Laboratory at [phone]. Interpretive data was last revised on 2019. Faustino Herrera MD LAB MICROBIOLOGY - GENERAL ORDERABLES Final Result JAIRON [facility] Department [place] [address] * Phosphorus (05/04/2023 1:20 AM ELECTRO OPTICS ENGINEER) [facility] Phosphorus, pl 2.8 2.3 - 4.5 mg/dL JAIRON [facility] Comment:Hemolyzed; result ma y be falsely elevated Blood 05/04/2023 1:20 AM ELECTRO OPTICS ENGINEER 05/04/2023 1:42 AM ELECTRO OPTICS ENGINEER Faustino Herrera MD LAB BLOOD ORDERABLES Final Result Performing Organization Address City/[facility]/ZIP Co de Phone Number [facility] [place] [employer] [place] [address] * Magnesium (05/04/2023 1:20 AM ELECTRO OPTICS ENGINEER) [facility] Magnesium 2.0 1.4 - 2.5 mg/dL [facility] Blood 05/04/2023 1:20 AM ELECTRO OPTICS ENGINEER 05/04/2023 1:42 AM ELECTRO OPTICS ENGINEER Faustino Herrera MD LAB BLOOD ORDERABLES Final Result Performing Organization Address [facility] de Phone Number [facility] [place] [address] * (ABNORMAL) Basic metabolic panel (05/04/2023 1:20 AM ELECTRO OPTICS ENGINEER) [facility] Sodium 140 135 - 145 mmol/L [facility] Potassium, pl See Comment 3.3 - 4.9 mmol/L [facility] Comment:Credited; Hemolyzed Specimen Chloride 109 97 - 110 mmol/L [facility] CO2 23 22 - 32 mmol/L [facility] Anion gap 8 2 - 15 mmol/L [facility] BUN 9 6 - 25 mg/dL [facility] Creatinine 1.38(H) 0.80 - 1.30 mg/dL [facility] Glucose 92 70 - 199 mg/dL [facility] Comment: Interpretive Data Fasting glucose >/= [...] interpretive data was last revised 2022. Calcium 7.3(L) 8.5 - 10.3 mg/dL [facility] Blood 05/04/2023 1:20 AM ELECTRO OPTICS ENGINEER 05/04/2023 1:42 AM ELECTRO OPTICS ENGINEER Faustino Herrera MD LAB BLOOD ORDERABLES Final Result [facility] Department [place] [address] * (ABNORMAL) CBC without differential (05/04/2023 1:20 AM ELECTRO OPTICS ENGINEER) [facility] WBC 13.5(H) 3.8 - 9.9 K/cumm [facility] Hgb 9.1(L) 13.0 - 17.5 g/dL [facility] Comment: Interpretive Data A reference range for this assay has not been established for patients with an unknown legal sex. Please refer to the laboratory test catalog for established sex-specific reference intervals. Current interpretive data was last revised on 2023. Hct 25.2(L) 38.9 - 50.3 % [facility] Comment: Interpretive Data A reference range for this assay has not been established for patients with an unknown legal sex. Please refer to the laboratory test catalog for established sex-specific reference intervals. Current interpretive data was last revised on 2023. Plt 115(L) 150 - 400 K/cumm [facility] MPV 10.6 9.1 - 12.3 fL [facility] RBC 2.89(L) 4.30 - 5.80 M/cumm [facility] Comment: Interpretive Data A reference range for this assay has not been established for patients with an unknown legal sex. Please refer to the laboratory test catalog for established sex-specific reference intervals. Current interpretive data was last revised on 2023. MCV 87.2 81.3 - 96.4 fL [facility] MCH 31.5 27.1 - 33.3 pg [facility] MCHC 36.1(H) 32.3 - 35.7 g/dL [facility] RDW CV 12.5 11.1 - 14.9 % [facility] RDW SD 40.1 35.7 - 48.1 fL [facility] NRBC abs 0.11(H) 0.00 - 0.01 K/cumm [facility] Blood 05/04/2023 1:20 AM ELECTRO OPTICS ENGINEER 05/04/2023 1:42 AM ELECTRO OPTICS ENGINEER us Faustino Herrera MD LAB BLOOD ORDERABLES Final Result Performing Organization Address [facility] de Phone Number [facility] Department [place] [address] * (ABNORMAL) Triglycerides (05/04/2023 1:20 AM ELECTRO OPTICS ENGINEER) Triglycerides 895(H) <=149 mg/dL [facility] Comment: Hemolyzed; result may be falsely elevated Interpretive Data Ages < or = 9 [...] Data was last revised on 2018. Blood 05/04/2023 1:20 AM ELECTRO OPTICS ENGINEER 05/04/2023 1:42 AM ELECTRO OPTICS ENGINEER us Nando Mijares MD LAB BLOOD ORDERABLES Albert jose f Result - Final [facility] Department [place] [address] * XR Chest 1 View (05/03/2023 10:05 PM ELECTRO OPTICS ENGINEER) Anatomical Region Laterality Modality Body, Chest N/A Digital Radiogra phy 05/04/2023 7:57 AM ELECTRO OPTICS ENGINEER Impressions 05/04/2023 7:57 AM ELECTRO OPTICS ENGINEER Comparison to 05/03/2023. There is an endotracheal tube with tip approximately 4.1 cm superior to the sommer. ??Gastric tube extends inferior to the ofnuw-sp-cpma the study, below the GE junction. ??Right IJ CVC with tip over the right atrium. ??Unchanged heart and mediastinum. ??Endovascular stent grafting of the thoracic aorta is again seen. Lung volumes are small. ??Likely small left pleural effusion. ??Partial atelectasis in the left lung base. ??Background of probable pulmonary edema appears slightly increased from prior. ??No definite pneumothorax. Electronically signed by: Chung Boone M.D. Narrative 05/04/2023 7:57 AM ELECTRO OPTICS ENGINEER EXAMINATION: 1 view chest radiograph Procedure Note Chung Boone MD - 05/04/2023 EXAMINATION: 1 view chest radiograph IMPRESSION: Comparison to 05/03/2023. There is an endotracheal tube with tip approximately 4.1 cm superior to the sommer. Gastric tube extends inferior to the eodeq-rz-krud the study, below the GE junction. Right IJ CVC with tip over the right atrium. Unchanged heart and mediastinum. Endovascular stent grafting of the thoracic aorta is again seen. Lung volumes are small. Likely small left pleural effusion. Partial atelectasis in the left lung base. Background of probable pulmonary edema appears slightly increased from prior. No definite pneumothorax. Electronically signed by: Chung Boone M.D. us Thea Zabala MD IMG XR PROCEDURES Fin al Result * AL INSJ NON-TUNNELED CENTRAL VENOUS CATH AGE 5 YR/> (05/03/2023 9:57 PM ELECTRO OPTICS ENGINEER) Narrative Carline Jerome MD - 05/03/2023 9:57 PM ELECTRO OPTICS ENGINEER Thea Rizzo MD ? 05/03/2023 ??9:59 PM Central Line Insertion Date/Time: 05/03/2023 9:57 PM Performed by: Thea Rizzo MD Authorized by: Thea Rizzo MD ?? [place] Protocol: RN Notified of Procedure: yes ?? Informed consent: ??Risks, benefits, alternatives discussed and patient/telephone service representative/guardian agrees and accepts Patient's stated name/ matches armband: ??Patient unable to verbalize - armband matched to name and within medical record Consent form signed, dated, timed; matches correct patient, intended procedure and site: ??Yes Imaging: ??Pertinent imaging reviewed, correctly oriented and match to patient identifiers Lab/Diag test results: ??Pertinent lab/diag tests reviewed and match to patient identifiers Supplies, devices and special equipment are available: yes ?? Indications: ??Vascular access, central pressure monitoring and administer vasoactive medications Anesthesia (see MAR for exact dosage) Anesthesia method: ??None Patient position: ??Trendelenburg Skin preparation: ??Skin prepped with 2% chlorhexidine Provider preparation: ??Cap, full body drape, gloves, gown, handwashing and mask Location: ??Right internal jugular Technique: Landmarks identified ?? Ultrasound guidance: ??Pre-procedure diagnostic and real-time needle guidance Assessment: ??Blood return through all ports, free fluid flow and placement verified by x-ray Catheter type: ??Quadruple lumen Catheter size: ??8.5 Fr Needle inserted, vein idenitified then guidewire inserted easily into vein: Yes ?? Successful placement: Yes ?? Catheter length (cm): ??20 Line securement: ??Line sutured and dressing applied Patient tolerance: ??Patient tolerated the procedure well with no immediate complications Post Procedure Debrief: All guidewires, needles, sponges or other items are accounted for: yes ?? Any special post procedure monitoring, testing or other considerations: yes (enter/request order) ?? us Thea Zabala MD IN CLINIC/BEDSIDE ORD ERABLES Final Result * (ABNORMAL) Blood gas, arterial (05/03/2023 8:32 PM ELECTRO OPTICS ENGINEER) pH, Art 7.37 7.35 - 7.45 [facility] PCO2, Arterial 37 35 - 45 mmHg [facility] PO2, Arterial 126(H) 83 - 108 mmHg [facility] HCO3 Art (Calculated) 22 20 - 30 mmol/L [facility] BE, art -3 mmol/L [facility] Comment: Interpretive Data No Reference Range Established Current Interpretive Data was last revised on 2017 O2 Sat Art (Measured) 99(H) 90 - 95 % [facility] Blood 05/03/2023 8:32 PM ELECTRO OPTICS ENGINEER 05/03/2023 8:55 PM ELECTRO OPTICS ENGINEER us Faustino Herrera MD LAB BLOOD ORDERABLES Final Result Performing Organization Address City/[facility]/ZIP Co de Phone Number [facility] Department [place] [address] * Potassium, whole blood (05/03/2023 5:50 PM ELECTRO OPTICS ENGINEER) Potassium, bld 3.6 3.3 - 4.9 mmol/L [facility] Blood 05/03/2023 5:50 PM ELECTRO OPTICS ENGINEER 05/03/2023 5:57 PM ELECTRO OPTICS ENGINEER us Anderson Tolentino Jr., TREE LAB BLOOD ORDERABLE S Final Result [facility] [place] [address] * (ABNORMAL) Blood gas, arterial (05/03/2023 5:50 PM ELECTRO OPTICS ENGINEER) pH, Art 7.38 7.35 - 7.45 [facility] PCO2, Arterial 36 35 - 45 mmHg [facility] PO2, Arterial 125(H) 83 - 108 mmHg [facility] HCO3 Art (Calculated) 22 20 - 30 mmol/L [facility] BE, art -4 mmol/L [facility] Comment: Interpretive Data No Reference Range Established Current Interpretive Data was last revised on 2017 O2 Sat Art (Measured) 99(H) 90 - 95 % [facility] Blood 05/03/2023 5:50 PM ELECTRO OPTICS ENGINEER 05/03/2023 5:57 PM ELECTRO OPTICS ENGINEER Faustino Herrera MD LAB BLOOD ORDERABLES Final Result Performing Organization Address City/State/[facility] Co al Phone Number [facility] [place] [address] * XR Chest 1 View (05/03/2023 2:54 PM ELECTRO OPTICS ENGINEER) Anatomical Region Laterality Modality Body, Chest N/A Computed Radiogr aphy 05/03/2023 4:08 PM ELECTRO OPTICS ENGINEER Impressions 05/03/2023 4:09 PM ELECTRO OPTICS ENGINEER Comparison is made to chest radiograph 05/02/2023 10:17 PM An endotracheal tube terminates 4 cm above the sommer. ??A gastric tube courses below the diaphragm and terminates outside of the field of view. ??There is a endovascular aortic stent graft and left subclavian graft. ??There are small lung volumes with new opacification of the left lung base representing moderate layering left pleural effusion and atelectasis. ??No right pleural effusion. No atelectasis. ??The cardiomediastinal silhouette is unchanged. Dictated by: Shady Childers MD The radiology attending physician has personally reviewed this study, and had reviewed and/or edited this written report and agrees with it. Electronically signed by: Aaron Schafer M.D. Narrative 05/03/2023 4:09 PM ELECTRO OPTICS ENGINEER EXAMINATION: 1 view chest radiograph Procedure Note Aaron Schafer MD - 05/03/2023 EXAMINATION: 1 view chest radiograph IMPRESSION: Comparison is made to chest radiograph 05/02/2023 10:17 PM An endotracheal tube terminates 4 cm above the sommer. A gastric tube courses below the diaphragm and terminates outside of the field of view. There is a endovascular aortic stent graft and left subclavian graft. There are small lung volumes with new opacification of the left lung base representing moderate layering left pleural effusion and atelectasis. No right pleural effusion. No atelectasis. The cardiomediastinal silhouette is unchanged. Dictated by: Shady Childers MD The radiology attending physician has personally reviewed this study, and had reviewed and/or edited this written report and agrees with it. Electronically signed by: Aaron Schafer M.D. Faustino Herrera MD IMG XR PROCEDURES Final Re sult * Critical Care (05/03/2023 2:29 PM ELECTRO OPTICS ENGINEER) Narrative Carline Jerome MD - 05/03/2023 2:29 PM ELECTRO OPTICS ENGINEER Carline Jerome MD ? 05/03/2023 ??2:30 PM Critical Care Performed by: Carline Jerome MD Authorized by: Carline Jerome MD ?? CRITICAL CARE: ??Team: ??83 CTICU ??Shift: [...] plan with the ICU team and other medical/sap security consultant staff, making frequent assessments and decisions [...] or life-threatening deterioration of the following conditions: ?This time was spent by me doing the following: ? Active problems: 1. Aortic dissection s/p stent starting at zone 1 and stenting of left subclavian. 2. Postoperative respiratory failure 3. Leukocytosis 4. Mild thrombocytopenia 5. Headache. 6. anemia Attending Impression / Plans: 1. Discuss impulse control BP goals with vascular surgery. 2. Increase carvedilol since he remains on max dose esmolol and clevdipine. 3. Postoperative respiratory failure with high PEEP and FiO2 requirements. Assessed patient and changed vent to PSV 12/5 with 60% fiO2, 4. Lasix 40 mg IV to start diuresis for pulmonary edema and generalized fluid overload. 5. Postoperative nose bleed. Seen by ENT. Nose is packed. 6. Attempt precedex as opposed to propofol for sedation. 7. Complete jie-op antibiotics. 8. Tylenol, Dilaudid and oxycodone for pain. 9. Mild anemia: but stable. 10. Hyperchloremic metabolic acidosis: Will give one amp of Bicarb. Afternoon update: Remains hypoxemic out of proportion to CXR findings. Will give labetalol and try to wean down clevidipine as potential etiology of shunting. ?? I spent time reviewing and interpreting data from bedside monitors, laboratory results, and imaging, I spent time discussing the management of this critically ill patient with consultants and the medical staff and I spent time documenting in the medical record us Carline Jerome MD IN CLINIC/BEDSIDE ORDERABL ES Final Result * (ABNORMAL) POC Blood Gas and Chemistries, Arterial - (05/03/2023 2:09 PM ELECTRO OPTICS ENGINEER) pH, Art POC 7.38 7.35 - 7.45 [facility] pCO2, Art POC 35 35 - 45 mmHg [facility] pO2, Art POC 59(L) 83 - 108 mmHg [facility] Na, POC 137 135 - 145 mmol/L [facility] K POC 3.4 3.3 - 4.9 mmol/L [facility] Comment: Interpretive Data This method is not able to assess for hemolysis, which may falsely increase potassium concentrations. If further testing is needed to evaluate this result, consider in-laboratory plasma potassium. Current Interpretive Data was last revised on 2022. Cl, POC 113(H) 97 - 110 mmol/L [facility] Ionized Ca, POC 4.32(L) 4.50 - 5.10 mg/dL [facility] Glucose, POC 106 70 - 199 mg/dL [facility] Lactate, POC 0.7 0.7 - 2.2 mmol/L [facility] SO2 (natalia) arterial 92 90 - 95 % [facility] Base excess, POC -3.9 mmol/L [facility] HCO3, Art POC 21 20 - 30 mmol/L [facility] Hct, POC 28.0(L) 41.4 - 51.6 % [facility] O2 Sat, Art POC (Calc) 90 % [facility] Total Hb, POC 9.4(L) 13.8 - 17.2 g/dL [facility] Blood 05/03/2023 2:09 PM ELECTRO OPTICS ENGINEER 05/03/2023 2:09 PM ELECTRO OPTICS ENGINEER us Faustino Herrera MD LAB POCT ORDERABLES - ROSIE CE Final Result [facility] [place] [address] * Triglycerides (05/03/2023 1:12 PM ELECTRO OPTICS ENGINEER) Triglycerides See Comment <=149 mg/dL [facility] Comment: Credited; Hemolyzed Specimen Interpretive Data Ages < or = 9 [...] Data was last revised on 2018. Blood 05/03/2023 1:12 PM ELECTRO OPTICS ENGINEER 05/03/2023 1:31 PM ELECTRO OPTICS ENGINEER us Alonzo Duncan MD LAB BLOOD ORDERABLES Fin al Result [facility] [place] [address] * (ABNORMAL) POC Blood Gas and Chemistries, Arterial - (05/03/2023 11:07 AM ELECTRO OPTICS ENGINEER) pH, Art POC 7.34(L) 7.35 - 7.45 [facility] pCO2, Art POC 35 35 - 45 mmHg [facility] pO2, Art POC 61(L) 83 - 108 mmHg [facility] Na, POC 137 135 - 145 mmol/L [facility] K POC 3.8 3.3 - 4.9 mmol/L [facility] Comment: Interpretive Data This method is not able to assess for hemolysis, which may falsely increase potassium concentrations. If further testing is needed to evaluate this result, consider in-laboratory plasma potassium. Current Interpretive Data was last revised on 2022. Cl, POC 110 97 - 110 mmol/L [facility] Ionized Ca, POC 4.73 4.50 - 5.10 mg/dL [facility] Glucose, POC 115 70 - 199 mg/dL [facility] Lactate, POC 0.9 0.7 - 2.2 mmol/L [facility] SO2 (natalia) arterial 93 90 - 95 % [facility] Base excess, POC -6.2 mmol/L [facility] HCO3, Art POC 19(L) 20 - 30 mmol/L [facility] Hct, POC 29.0(L) 41.4 - 51.6 % [facility] O2 Sat, Art POC (Calc) 89 % [facility] Total Hb, POC 9.7(L) 13.8 - 17.2 g/dL [facility] Blood 05/03/2023 11:0 7 AM ELECTRO OPTICS ENGINEER 05/03/2023 11:07 AM ELECTRO OPTICS ENGINEER us Faustino Herrera MD LAB POCT ORDERABLES - ROSIE CE Final Result JAIRON [facility] Department [place] [address] * (ABNORMAL) POC Blood Gas and Chemistries, Arterial - (05/03/2023 3:28 AM ELECTRO OPTICS ENGINEER) pH, Art POC 7.34(L) 7.35 - 7.45 [facility] pCO2, Art POC 28(L) 35 - 45 mmHg [facility] pO2, Art POC 81(L) 83 - 108 mmHg [facility] Na, POC 135 135 - 145 mmol/L [facility] K POC 4.2 3.3 - 4.9 mmol/L [facility] Comment: Interpretive Data This method is not able to assess for hemolysis, which may falsely increase potassium concentrations. If further testing is needed to evaluate this result, consider in-laboratory plasma potassium. Current Interpretive Data was last revised on 2022. Cl, POC 109 97 - 110 mmol/L [facility] Ionized Ca, POC 5.30(H) 4.50 - 5.10 mg/dL [facility] Glucose, POC 124 70 - 199 mg/dL [facility] Lactate, POC 1.0 0.7 - 2.2 mmol/L [facility] SO2 (natalia) arterial 98(H) 90 - 95 % [facility] Base excess, POC -9.4 mmol/L [facility] HCO3, Art POC 15(L) 20 - 30 mmol/L [facility] Hct, POC 32.0(L) 41.4 - 51.6 % [facility] O2 Sat, Art POC (Calc) 95 % [facility] Total Hb, POC 10.6(L) 13.8 - 17.2 g/dL [facility] Blood 05/03/2023 3:28 AM ELECTRO OPTICS ENGINEER 05/03/2023 3:28 AM ELECTRO OPTICS ENGINEER us Alonzo Duncan MD LAB POCT ORDERABLES - DE VICE Final Result Performing Organization Address City/[facility]/ZIP Co de Phone Number JAIRON [facility] Department [place] [address] * Lactate (05/03/2023 2:08 AM ELECTRO OPTICS ENGINEER) Pathologist [facility] Lactate 1.2 0.7 - 2.0 mmol/L [facility] Blood 05/03/2023 2:08 AM ELECTRO OPTICS ENGINEER 05/03/2023 2:49 AM ELECTRO OPTICS ENGINEER Alonzo Duncan MD LAB BLOOD ORDERABLES Fin al Result Performing Organization Address [facility] de Phone Number [facility] Department [place] [address] * (ABNORMAL) Blood gas, arterial (05/03/2023 2:08 AM ELECTRO OPTICS ENGINEER) [facility] pH, Art 7.34(L) 7.35 - 7.45 [facility] PCO2, Arterial 32(L) 35 - 45 mmHg [facility] PO2, Arterial 120(H) 83 - 108 mmHg [facility] HCO3 Art (Calculated) 18(L) 20 - 30 mmol/L [facility] BE, art -8 mmol/L [facility] Comment: Interpretive Data No Reference Range Established Current Interpretive Data was last revised on 2017 O2 Sat Art (Measured) 99(H) 90 - 95 % [facility] Blood 05/03/2023 2:08 AM ELECTRO OPTICS ENGINEER 05/03/2023 2:21 AM ELECTRO OPTICS ENGINEER Alonzo Duncan MD LAB BLOOD ORDERABLES Fin al Result Performing Organization Address [facility] de Phone Number [facility] Department [place] [address] * TSH reflex to free T4 (05/03/2023 12:10 AM ELECTRO OPTICS ENGINEER) Pathologist [facility] TSH 1.52 0.30 - 4.20 mcIUnit/mL [facility] Blood 05/03/2023 12:1 0 AM ELECTRO OPTICS ENGINEER 05/03/2023 12:27 AM ELECTRO OPTICS ENGINEER us Faustino Herrera MD LAB BLOOD ORDERABLES Final Result Performing Organization Address [facility] Co de Phone Number JAIRON ERWIN [facility] Department [place] [employer] [place] [address] * eGFR (05/03/2023 12:10 AM ELECTRO OPTICS ENGINEER) eGFR 78 >=60 mL/min/1. 73 m2 JAIRON [facility] Comment: Interpretive Data Reference Interval Normal ?>/= [...] interpretive data was last reviewed 2021. Blood 05/03/2023 12:1 0 AM ELECTRO OPTICS ENGINEER 05/03/2023 12:27 AM ELECTRO OPTICS ENGINEER us Anderson Tolentino Jr., SECTION CUTTER LAB BLOOD ORDERABLE S Final Result Performing Organization Address [facility] Co de Phone Number JAIRON ERWIN [facility] Department [place] [address] * Fibrinogen (05/03/2023 12:10 AM ELECTRO OPTICS ENGINEER) Fibrinogen 274 170 - 400 mg/dL [facility] Blood 05/03/2023 12:1 0 AM ELECTRO OPTICS ENGINEER 05/03/2023 1:52 AM ELECTRO OPTICS ENGINEER Nicole Pearce MD LAB BLOOD ORDERABLES Final Res ult Performing Organization Address [facility] de Phone Number [facility] Department [place] [address] * (ABNORMAL) Blood gas, arterial (05/03/2023 12:10 AM ELECTRO OPTICS ENGINEER) pH, Art 7.35 7.35 - 7.45 [facility] PCO2, Arterial 32(L) 35 - 45 mmHg [facility] PO2, Arterial 110(H) 83 - 108 mmHg [facility] HCO3 Art (Calculated) 18(L) 20 - 30 mmol/L [facility] BE, art -7 mmol/L [facility] Comment: Interpretive Data No Reference Range Established Current Interpretive Data was last revised on 2017 O2 Sat Art (Measured) 98(H) 90 - 95 % [facility] Blood 05/03/2023 12:1 0 AM ELECTRO OPTICS ENGINEER 05/03/2023 12:23 AM ELECTRO OPTICS ENGINEER us Anderson Tolentino Jr., NP LAB BLOOD ORDERABLE S Final Result Performing Organization Address [facility] de Phone Number [facility] Department [place] [address] * Lactate (05/03/2023 12:10 AM ELECTRO OPTICS ENGINEER) Lactate 1.0 0.7 - 2.0 mmol/L [facility] Blood 05/03/2023 12:1 0 AM ELECTRO OPTICS ENGINEER 05/03/2023 12:27 AM ELECTRO OPTICS ENGINEER us Anderson Tolentino Jr., TREE LAB BLOOD ORDERABLE S Final Result Performing Organization Address [facility] Co de Phone Number [facility] [place] [address] * (ABNORMAL) Phosphorus (05/03/2023 12:10 AM ELECTRO OPTICS ENGINEER) [facility] Phosphorus, pl 2.1(L) 2.3 - 4.5 mg/dL [facility] Comment:Hemolyzed; result ma y be falsely elevated Blood 05/03/2023 12:1 0 AM ELECTRO OPTICS ENGINEER 05/03/2023 12:27 AM ELECTRO OPTICS ENGINEER Anderson Tolentino Jr., TREE LAB BLOOD ORDERABLE S Final Result Performing Organization Address [facility] Co de Phone Number [facility] [place] [address] * Magnesium (05/03/2023 12:10 AM ELECTRO OPTICS ENGINEER) [facility] Magnesium 1.9 1.4 - 2.5 mg/dL [facility] Blood 05/03/2023 12:1 0 AM ELECTRO OPTICS ENGINEER 05/03/2023 12:27 AM ELECTRO OPTICS ENGINEER Anderson Tolentino Jr., TREE LAB BLOOD ORDERABLE S Final Result Performing Organization Address [facility] Co de Phone Number [facility] [place] [address] * (ABNORMAL) Basic metabolic panel (05/03/2023 12:10 AM ELECTRO OPTICS ENGINEER) [facility] Sodium 134(L) 135 - 145 mmol/L [facility] Potassium, pl See Comment 3.3 - 4.9 mmol/L [facility] Comment:Credited; Hemolyzed Specimen Chloride 106 97 - 110 mmol/L [facility] CO2 18(L) 22 - 32 mmol/L [facility] Anion gap 10 2 - 15 mmol/L [facility] BUN 16 6 - 25 mg/dL [facility] Creatinine 1.27 0.80 - 1.30 mg/dL [facility] Glucose 118 70 - 199 mg/dL [facility] Comment: Interpretive Data Fasting glucose >/= [...] interpretive data was last revised 2022. Calcium 7.7(L) 8.5 - 10.3 mg/dL [facility] Blood 05/03/2023 12:1 0 AM ELECTRO OPTICS ENGINEER 05/03/2023 12:27 AM ELECTRO OPTICS ENGINEER Anderson Tolentino Jr., TREE LAB BLOOD ORDERABLE S Final Result [facility] One [facility] Department [place] [address] * (ABNORMAL) CBC without differential (05/03/2023 12:10 AM ELECTRO OPTICS ENGINEER) [facility] WBC 14.6(H) 3.8 - 9.9 K/cumm [facility] Hgb 10.7(L) 13.0 - 17.5 g/dL [facility] Comment: Interpretive Data A reference range for this assay has not been established for patients with an unknown legal sex. Please refer to the laboratory test catalog for established sex-specific reference intervals. Current interpretive data was last revised on 2023. Hct 29.7(L) 38.9 - 50.3 % [facility] Comment: Interpretive Data A reference range for this assay has not been established for patients with an unknown legal sex. Please refer to the laboratory test catalog for established sex-specific reference intervals. Current interpretive data was last revised on 2023. Plt 121(L) 150 - 400 K/cumm [facility] MPV 10.6 9.1 - 12.3 fL [facility] RBC 3.38(L) 4.30 - 5.80 M/cumm [facility] Comment: Interpretive Data A reference range for this assay has not been established for patients with an unknown legal sex. Please refer to the laboratory test catalog for established sex-specific reference intervals. Current interpretive data was last revised on 2023. MCV 87.9 81.3 - 96.4 fL [facility] MCH 31.7 27.1 - 33.3 pg [facility] MCHC 36.0(H) 32.3 - 35.7 g/dL [facility] RDW CV 12.4 11.1 - 14.9 % [facility] RDW SD 39.9 35.7 - 48.1 fL [facility] NRBC abs 0.00 0.00 - 0.01 K/cumm [facility] Blood 05/03/2023 12:1 0 AM ELECTRO OPTICS ENGINEER 05/03/2023 12:28 AM ELECTRO OPTICS ENGINEER us Anderson Tolentino Jr., TREE LAB BLOOD ORDERABLE S Final Result [facility] One [facility] Department [place] [address] * (ABNORMAL) POC Blood Gas and Chemistries, Arterial - (05/02/2023 11:16 PM ELECTRO OPTICS ENGINEER) pH, Art POC 7.34(L) 7.35 - 7.45 [facility] pCO2, Art POC 32(L) 35 - 45 mmHg [facility] pO2, Art POC 70(L) 83 - 108 mmHg [facility] Na, POC 135 135 - 145 mmol/L [facility] K POC 4.1 3.3 - 4.9 mmol/L [facility] Comment: Interpretive Data This method is not able to assess for hemolysis, which may falsely increase potassium concentrations. If further testing is needed to evaluate this result, consider in-laboratory plasma potassium. Current Interpretive Data was last revised on 2022. Cl, POC 110 97 - 110 mmol/L [facility] Ionized Ca, POC 4.68 4.50 - 5.10 mg/dL [facility] Glucose, POC 117 70 - 199 mg/dL [facility] Lactate, POC 0.9 0.7 - 2.2 mmol/L [facility] SO2 (natalia) arterial 96(H) 90 - 95 % [facility] Base excess, POC -7.6 mmol/L [facility] HCO3, Art POC 17(L) 20 - 30 mmol/L [facility] Hct, POC 31.0(L) 41.4 - 51.6 % [facility] O2 Sat, Art POC (Calc) 93 % [facility] Total Hb, POC 10.4(L) 13.8 - 17.2 g/dL [facility] Blood 05/02/2023 11:1 6 PM ELECTRO OPTICS ENGINEER 05/02/2023 11:16 PM ELECTRO OPTICS ENGINEER Alonzo Duncan MD LAB POCT ORDERABLES - DE VICE Final Result [facility] One [facility] Department [place] [address] * XR Chest 1 View (05/02/2023 10:54 PM ELECTRO OPTICS ENGINEER) Anatomical Region Laterality Modality Body, Chest N/A Computed Radiogr aphy 05/03/2023 9:04 AM ELECTRO OPTICS ENGINEER Impressions 05/03/2023 3:17 PM ELECTRO OPTICS ENGINEER The current study is compared with the prior radiograph dated 05/01/2023 6:00 PM. ??Interval intubation with tip of endotracheal tube 5 cm above the sommer. ??There are changes of interval fenestrated thoracic endovascular aortic repair with endoaortic stent graft and left subclavian component. ?? The heart is normal in size. ??The mediastinal contours are stable. Small lung volumes. ??There is new mild left basilar atelectasis. ??No pulmonary consolidation or edema. ??No pleural effusion. ??No pneumothorax. Dictated by: Chris Turner MD The radiology attending physician has personally reviewed this study, and had reviewed and/or edited this written report and agrees with it. Electronically signed by: Roldan Harrison M.D. Narrative 05/03/2023 3:17 PM ELECTRO OPTICS ENGINEER EXAMINATION: 1 view chest radiograph Procedure Note Roldan Harrison MD - 05/03/2023 EXAMINATION: 1 view chest radiograph IMPRESSION: The current study is compared with the prior radiograph dated 05/01/2023 6:00 PM. Interval intubation with tip of endotracheal tube 5 cm above the sommer. There are changes of interval fenestrated thoracic endovascular aortic repair with endoaortic stent graft and left subclavian component. The heart is normal in size. The mediastinal contours are stable. Small lung volumes. There is new mild left basilar atelectasis. No pulmonary consolidation or edema. No pleural effusion. No pneumothorax. Dictated by: Chris Turner MD The radiology attending physician has personally reviewed this study, and had reviewed and/or edited this written report and agrees with it. Electronically signed by: Roldan Harrison M.D. Anderson Tolentino Jr., SECTION CUTTER IMG XR PROCEDURES F inal Result * (ABNORMAL) POC Blood Gas and Chemistries, Arterial - (05/02/2023 10:13 PM ELECTRO OPTICS ENGINEER) pH, Art POC 7.29(L) 7.35 - 7.45 [facility] pCO2, Art POC 35 35 - 45 mmHg [facility] pO2, Art POC 68(L) 83 - 108 mmHg [facility] Na, POC 136 135 - 145 mmol/L [facility] K POC 3.9 3.3 - 4.9 mmol/L [facility] Comment: Interpretive Data This method is not able to assess for hemolysis, which may falsely increase potassium concentrations. If further testing is needed to evaluate this result, consider in-laboratory plasma potassium. Current Interpretive Data was last revised on 2022. Cl, POC 111(H) 97 - 110 mmol/L [facility] Ionized Ca, POC 4.56 4.50 - 5.10 mg/dL [facility] Glucose, POC 105 70 - 199 mg/dL [facility] Lactate, POC 1.1 0.7 - 2.2 mmol/L [facility] SO2 (natalia) arterial 95 90 - 95 % [facility] Base excess, POC -9.0 mmol/L [facility] HCO3, Art POC 17(L) 20 - 30 mmol/L [facility] Hct, POC 29.0(L) 41.4 - 51.6 % [facility] O2 Sat, Art POC (Calc) 91 % [facility] Total Hb, POC 9.8(L) 13.8 - 17.2 g/dL [facility] Blood 05/02/2023 10:1 3 PM ELECTRO OPTICS ENGINEER 05/02/2023 10:13 PM ELECTRO OPTICS ENGINEER us Alonzo Duncan MD LAB POCT ORDERABLES - DE VICE Final Result [facility] One [facility] Department [place] [address] * eGFR (05/02/2023 9:55 PM ELECTRO OPTICS ENGINEER) eGFR 72 >=60 mL/min/1. 73 m2 [facility] Comment: Interpretive Data Reference Interval Normal [...] interpretive data was last reviewed 2021. Blood 05/02/2023 9:55 PM ELECTRO OPTICS ENGINEER 05/02/2023 10:39 PM ELECTRO OPTICS ENGINEER Anderson Tolentino Jr., TREE LAB BLOOD ORDERABLE S Final Result Performing Organization Address City/[facility] Co de Phone Number [facility] [place] [address] * Calcium, ionized (05/02/2023 9:55 PM ELECTRO OPTICS ENGINEER) Calcium, Ionized 4.61 4.50 - 5.10 mg/dL [facility] Blood 05/02/2023 9:55 PM ELECTRO OPTICS ENGINEER 05/02/2023 10:17 PM ELECTRO OPTICS ENGINEER Anderson Tolentino Jr., TREE LAB BLOOD ORDERABLE S Final Result Performing Organization Address [facility] [place] [address] * Magnesium (05/02/2023 9:55 PM ELECTRO OPTICS ENGINEER) Magnesium 1.8 1.4 - 2.5 mg/dL [facility] Blood 05/02/2023 9:55 PM ELECTRO OPTICS ENGINEER 05/02/2023 10:17 PM ELECTRO OPTICS ENGINEER Anderson Tolentino Jr., NP LAB BLOOD ORDERABLE S Final Result Performing Organization Address [facility] [place] [address] * (ABNORMAL) Basic metabolic panel (05/02/2023 9:55 PM ELECTRO OPTICS ENGINEER) Sodium 136 135 - 145 mmol/L [facility] Potassium, pl 4.5 3.3 - 4.9 mmol/L [facility] Comment:Hemolyzed; Potassium value may be falsely elevated by as much as 0.6-1.0 mmol/L. Suggest redraw and reanalysis. Chloride 107 97 - 110 mmol/L [facility] CO2 20(L) 22 - 32 mmol/L [facility] Anion gap 9 2 - 15 mmol/L [facility] BUN 15 6 - 25 mg/dL [facility] Creatinine 1.36(H) 0.80 - 1.30 mg/dL [facility] Glucose 105 70 - 199 mg/dL [facility] Comment: Interpretive Data Fasting glucose >/= [...] interpretive data was last revised 2022. Calcium 7.6(L) 8.5 - 10.3 mg/dL [facility] Blood 05/02/2023 9:55 PM ELECTRO OPTICS ENGINEER 05/02/2023 10:17 PM ELECTRO OPTICS ENGINEER Anderson Tolentino Jr., TREE LAB BLOOD ORDERABLE S Final Result [facility] One [facility] Department [place] [address] * Phosphorus (05/02/2023 9:55 PM ELECTRO OPTICS ENGINEER) Pathologist [facility] Phosphorus, pl 3.5 2.3 - 4.5 mg/dL [facility] Blood 05/02/2023 9:55 PM ELECTRO OPTICS ENGINEER 05/02/2023 10:17 PM ELECTRO OPTICS ENGINEER Anderson Tolentino Jr., NP LAB BLOOD ORDERABLE S Final Result [facility] One [facility] Department [place] [address] * (ABNORMAL) CBC without differential (05/02/2023 9:33 PM ELECTRO OPTICS ENGINEER) [facility] WBC 12.4(H) 3.8 - 9.9 K/cumm [facility] Hgb 9.9(L) 13.0 - 17.5 g/dL [facility] Comment: Interpretive Data A reference range for this assay has not been established for patients with an unknown legal sex. Please refer to the laboratory test catalog for established sex-specific reference intervals. Current interpretive data was last revised on 2023. Hct 28.8(L) 38.9 - 50.3 % [facility] Comment: Interpretive Data A reference range for this assay has not been established for patients with an unknown legal sex. Please refer to the laboratory test catalog for established sex-specific reference intervals. Current interpretive data was last revised on 2023. Plt 105(L) 150 - 400 K/cumm [facility] MPV 10.1 9.1 - 12.3 fL [facility] RBC 3.18(L) 4.30 - 5.80 M/cumm [facility] Comment: Interpretive Data A reference range for this assay has not been established for patients with an unknown legal sex. Please refer to the laboratory test catalog for established sex-specific reference intervals. Current interpretive data was last revised on 2023. MCV 90.6 81.3 - 96.4 fL [facility] MCH 31.1 27.1 - 33.3 pg [facility] MCHC 34.4 32.3 - 35.7 g/dL [facility] RDW CV 12.4 11.1 - 14.9 % [facility] RDW SD 40.8 35.7 - 48.1 fL [facility] NRBC abs 0.03(H) 0.00 - 0.01 K/cumm [facility] Blood 05/02/2023 9:33 PM ELECTRO OPTICS ENGINEER 05/02/2023 10:23 PM ELECTRO OPTICS ENGINEER us Anderson Tolentino Jr., TREE LAB BLOOD ORDERABLE S Final Result [facility] One [facility] Department [place] [address] * (ABNORMAL) POC Blood Gas and Chemistries, Arterial - (05/02/2023 9:29 PM ELECTRO OPTICS ENGINEER) pH, Art POC 7.27(L) 7.35 - 7.45 [facility] pCO2, Art POC 41 35 - 45 mmHg [facility] pO2, Art POC 56(L) 83 - 108 mmHg [facility] Na, POC 137 135 - 145 mmol/L [facility] K POC 4.0 3.3 - 4.9 mmol/L [facility] Comment: Interpretive Data This method is not able to assess for hemolysis, which may falsely increase potassium concentrations. If further testing is needed to evaluate this result, consider in-laboratory plasma potassium. Current Interpretive Data was last revised on 2022. Cl, POC 111(H) 97 - 110 mmol/L [facility] Ionized Ca, POC 4.67 4.50 - 5.10 mg/dL [facility] Glucose, POC 101 70 - 199 mg/dL [facility] Lactate, POC 1.0 0.7 - 2.2 mmol/L [facility] SO2 (natalia) arterial 89(L) 90 - 95 % [facility] Base excess, POC -7.6 mmol/L [facility] HCO3, Art POC 19(L) 20 - 30 mmol/L [facility] Hct, POC 30.0(L) 41.4 - 51.6 % [facility] O2 Sat, Art POC (Calc) 84 % [facility] Total Hb, POC 9.9(L) 13.8 - 17.2 g/dL [facility] Blood 05/02/2023 9:29 PM ELECTRO OPTICS ENGINEER 05/02/2023 9:29 PM ELECTRO OPTICS ENGINEER us Alonzo Duncan MD LAB POCT ORDERABLES - DE VICE Final Result Performing Organization Address [facility] Co de Phone Number [facility] Department [place] [employer] [place] [address] * THORACIC ENDOVASCULAR REPAIR - AORTIC (05/02/2023 9:20 PM ELECTRO OPTICS ENGINEER) Anatomical Region Laterality Modality X-Ray Angiograph y Narrative 05/03/2023 5:06 AM ELECTRO OPTICS ENGINEER Please see OpNote for result. us Faustino Herrera MD SURGICAL CASE ORDERS Final Result * POCT Activated clotting time, low range (05/02/2023 7:26 PM ELECTRO OPTICS ENGINEER) ACT 149 123 - 168 sec [facility] POC Performer [id number] [facility] POC Device Number [id number] [facility] Blood 05/02/2023 7:26 PM ELECTRO OPTICS ENGINEER 05/02/2023 7:26 PM ELECTRO OPTICS ENGINEER us Alonzo Duncan MD LAB POCT ORDERABLES - DE VICE Final Result Performing Organization Address [facility] Co de Phone Number [facility] [place] [employer] [place] [address] * (ABNORMAL) POCT Activated clotting time, low range (05/02/2023 7:01 PM ELECTRO OPTICS ENGINEER) ACT 327(H) 123 - 168 sec [facility] POC Performer [id number] [facility] POC Device Number [id number] [facility] Blood 05/02/2023 7:01 PM ELECTRO OPTICS ENGINEER 05/02/2023 7:01 PM ELECTRO OPTICS ENGINEER us Alonzo Duncan MD LAB POCT ORDERABLES - DE VICE Final Result Performing Organization Address [facility] Co de Phone Number [facility] Department [place] [address] * (ABNORMAL) POCT Activated clotting time, low range (05/02/2023 6:27 PM ELECTRO OPTICS ENGINEER) ACT 322(H) 123 - 168 sec [facility] POC Performer 7239 [facility] POC Device Number [id number] [facility] Blood 05/02/2023 6:27 PM ELECTRO OPTICS ENGINEER 05/02/2023 6:27 PM ELECTRO OPTICS ENGINEER Alonzo Duncan MD LAB POCT ORDERABLES - DE VICE Final Result Performing Organization Address [facility] Co de Phone Number [facility] Department [place] [address] * (ABNORMAL) POCT Activated clotting time, low range (05/02/2023 6:02 PM ELECTRO OPTICS ENGINEER) ACT 331(H) 123 - 168 sec [facility] POC Performer [id number] [facility] POC Device Number [id number] [facility] Blood 05/02/2023 6:02 PM ELECTRO OPTICS ENGINEER 05/02/2023 6:02 PM ELECTRO OPTICS ENGINEER us Alonzo Duncan MD LAB POCT ORDERABLES - DE VICE Final Result Performing Organization Address [facility] de Phone Number [facility] Department [place] [address] * Critical Care (05/02/2023 5:26 PM ELECTRO OPTICS ENGINEER) Narrative Carline Jerome MD - 05/02/2023 5:26 PM ELECTRO OPTICS ENGINEER Carline Jerome MD ? 05/02/2023 ??5:29 PM Critical Care Performed by: Carline Jerome MD Authorized by: Carline Jerome MD ?? CRITICAL CARE: ??Team: ??83 CTICU ??Shift: [...] plan with the ICU team and other medical/sap security consultant staff, making frequent assessments and decisions [...] or life-threatening deterioration of the following conditions: ?This time was spent by me doing the following: ? Active problems: 1. Type B Aortic dissection 2. Leukocytosis 3. Mild thrombocytopenia 4. Headache. 5. anemia Attending Impression / Plans: 1. Repeat CT scan because of new finding of widened mediastinum. 2. BP is well controlled. Cont clevidipine and esmolol as well as coreg. 3. Tylenol and oxycodone for pain. 4. Restart SQH for repeat CT scan is negative for tamponade or type A. 5. Mild thrombocytopenia: cont to trend. 6. Mild anemia: prob from volume overload: not clinically significant. 7. Cont to monitor fluid status closely: high dose of intravenous meds for BP control will eventually lead to fluid overload. ?? I spent time reviewing and interpreting data from bedside monitors, laboratory results, and imaging, I spent time discussing the management of this critically ill patient with consultants and the medical staff and I spent time documenting in the medical record us Carline Jerome MD IN CLINIC/BEDSIDE ORDERABL ES Final Result * eGFR (05/02/2023 4:00 PM ELECTRO OPTICS ENGINEER) [facility] eGFR 84 >=60 mL/min/1. 73 m2 [facility] Comment: Interpretive Data Reference Interval Normal ?>/= [...] interpretive data was last reviewed 2021. Blood 05/02/2023 4:00 PM ELECTRO OPTICS ENGINEER 05/02/2023 4:29 PM ELECTRO OPTICS ENGINEER us Alonzo Duncan MD LAB BLOOD ORDERABLES Fin al Result [facility] Department [place] [address] * (ABNORMAL) Comprehensive metabolic panel (05/02/2023 4:00 PM ELECTRO OPTICS ENGINEER) Sodium 134(L) 135 - 145 mmol/L [facility] Potassium, pl See Comment 3.3 - 4.9 mmol/L [facility] Comment:Credited; Hemolyzed Specimen Chloride 103 97 - 110 mmol/L [facility] CO2 16(L) 22 - 32 mmol/L [facility] Anion gap 15 2 - 15 mmol/L [facility] BUN 15 6 - 25 mg/dL [facility] Creatinine 1.19 0.80 - 1.30 mg/dL [facility] Glucose 102 70 - 199 mg/dL [facility] Comment: Interpretive Data Fasting glucose >/= [...] 2022. Calcium 8.3(L) 8.5 - 10.3 mg/dL [facility] Bilirubin, total 0.5 0.1 - 1.2 mg/dL [facility] Protein, pl 6.5 6.5 - 8.5 g/dL [facility] Albumin 3.5 3.5 - 5.0 g/dL [facility] Alk phos 59 40 - 130 Units/L [facility] Comment:Hemolyzed; result ma y be falsely decreased ALT See Comment 7 - 55 Units/L [facility] Comment:Credited; Hemolyzed Specimen AST See Comment 10 - 50 Units/L [facility] Comment:Credited; Hemolyzed Specimen Blood 05/02/2023 4:00 PM ELECTRO OPTICS ENGINEER 05/02/2023 4:29 PM ELECTRO OPTICS ENGINEER Alonzo Duncan MD LAB BLOOD ORDERABLES Fin al Result Performing Organization Address [facility]/ZIP Co de Phone Number [facility] Department [place] [employer] [place] [address] * Lactate (05/02/2023 4:00 PM ELECTRO OPTICS ENGINEER) Pathologist [facility] Lactate 0.9 0.7 - 2.0 mmol/L [facility] Blood 05/02/2023 4:00 PM ELECTRO OPTICS ENGINEER 05/02/2023 4:29 PM ELECTRO OPTICS ENGINEER Faustino Elias MD LAB BLOOD ORDERABLES Final Result Performing Organization Address [facility]/ZIP Co de Phone Number [facility] Department [place] [employer] [place] [address] * (ABNORMAL) CBC without differential (05/02/2023 4:00 PM ELECTRO OPTICS ENGINEER) WBC 15.0(H) 3.8 - 9.9 K/cumm [facility] Hgb 10.9(L) 13.0 - 17.5 g/dL [facility] Comment: Interpretive Data A reference range for this assay has not been established for patients with an unknown legal sex. Please refer to the laboratory test catalog for established sex-specific reference intervals. Current interpretive data was last revised on 2023. Hct 30.9(L) 38.9 - 50.3 % [facility] Comment: Interpretive Data A reference range for this assay has not been established for patients with an unknown legal sex. Please refer to the laboratory test catalog for established sex-specific reference intervals. Current interpretive data was last revised on 2023. Plt 119(L) 150 - 400 K/cumm [facility] MPV 10.7 9.1 - 12.3 fL [facility] RBC 3.49(L) 4.30 - 5.80 M/cumm [facility] Comment: Interpretive Data A reference range for this assay has not been established for patients with an unknown legal sex. Please refer to the laboratory test catalog for established sex-specific reference intervals. Current interpretive data was last revised on 2023. MCV 88.5 81.3 - 96.4 fL [facility] MCH 31.2 27.1 - 33.3 pg [facility] MCHC 35.3 32.3 - 35.7 g/dL [facility] RDW CV 12.3 11.1 - 14.9 % [facility] RDW SD 39.9 35.7 - 48.1 fL [facility] NRBC abs 0.00 0.00 - 0.01 K/cumm [facility] Blood 05/02/2023 4:00 PM ELECTRO OPTICS ENGINEER 05/02/2023 4:29 PM ELECTRO OPTICS ENGINEER us Faustino Elias MD LAB BLOOD ORDERABLES Final Result [facility] Department [place] [address] * TRANSTHORACIC ECHO (TTE) COMPLETE W DOPPLER/CF W CONTRAST (05/02/2023 12:40 PM ELECTRO OPTICS ENGINEER) LV EF 41 % CARDIOREPORT Anatomical Region Laterality Modality Ultrasound 05/02/2023 11:3 0 AM ELECTRO OPTICS ENGINEER Narrative 05/02/2023 12:56 PM ELECTRO OPTICS ENGINEER Patient name: Eriberto Chau Date of test: 05/02/2023 Type of test: TTE w/Doppler Hospital #: 0 Date of : 1990 (M) Parts Lister: Real Rosales RDCS Referring Physician: GLADYS GALLAGHER MD Contrast Agent: 1.1 ml Optison Administered, (1.9 ml wasted). Contrast Administered by: ICU Nurse Supervised/Interpreted by: Roldan Salcido MD Diagnosis: Location: [facility] Reason for test: chest pain MV Structure: Normal, ?MV Motion: Normal, ?? Mitral Annulus: Normal AV Structure: tricuspid and is Normal, ?? AV Motion: Normal Aotic root: Normal, ?TM: Normal, ?? PV: Normal Valvular Vegetations: none seen, ?Mass/Thrombi: none seen RA: Normal Measurements: ?M-Mode ?Normal ? Aotic Root: ? <3.8 ? LA: ? <4.0 ? RV: ? <2.8 ? LV(ED): ? <5.7 ? LV(ES): ? Variable ?2D Linear Normal ? Aotic Root: 3.7 cm ?<4.0 ? Ao Indexed: 1.7 cm/M2 <2.0 ? LA: ? <4.0 ? RV: ? 3.5 cm ?<4.2 ? LV(ED): ? 5.6 cm ?<5.9 ? LV(ES): ? 4.2 cm ?<4.0 ?2D Vol. ?? Normal ?Indexed ?? Indexed Normal RA: ? 75.0 ml ? 33.8 ml/M2 ?11-39 ? LA: ? 80.0 ml ? 36.1 ml/M2 ?16-34 ? RV: ? <12.7 ? LV(ED): ? 180.0 ml ??62-150 ?81.2 ml/M2 ?<75 ? LV(ES): ? 107.0 ml ??21-61 ? 48.3 ml/M2 ?<32 ?3D Vol. ? Indexed Normal LV(ED): ?<75 ? LV(ES): ?<32 ? LV EF: 41 % ?? (Normal: >=52%) ?? LV Septum: 1.3 cm ?(Normal: <1.0 cm) Wall Motion Scoring (1=Normal 2=Hypo 3=Akinetic 4=Dyskin./Aneurysm 0=Not visualized) Parasternal Long [place]:MAS=2 BAS=2 MIL=2 GARO=2 Parasternal Short [place]:MAS=2 MIS=2 NJ=2 MIL=2 MAL=2 MA=2 Apical 4 Chambers:=2 MIS=2 BIS=2 BAL=2 MAL=2 AL=2 AC=2 Apical 2 Chambers:AI=2 NJ=2 BI=2 BA=2 MA=2 AA=2 AC=2 LV Global Longitudinal Strain: RV Global Longitudinal Strain: LV Function: Mild Global reduction in LV Ejection Fraction (EF= 41-51%) RV Function: Normal Septal Motion: Normal Pericardial Effusion: none seen Atrial Septum: Normal DOPPLER/COLOR FLOW DOPPLER RESULTS: Diastolic Function: indeterminate Tricuspid Valve: normal TV Pulmonic Valve: normal PV AV Regurgitation: No AR seen AV Stenosis: no AV Area: ??cm2 AV Pressure Gradient (mmHg): Mean: 0, Peak:0 MV Regurgitation: No MR seen MV Stenosis: ??no MS MV Area: ??cm2 MV Pressure Gradient (mmHg): Mean: 0 MV ERO: ??cm Regurg. Vol.: ??ml/beat Regurg. Frac.: ??% PA Pressure: ??mmHg DOPPLER/COLOR FOLOW DOPPLER COMMENTS: No AR seen, No MR seen, no , ??no MS, normal TV, normal PV. Diastolic function: indeterminate CONTRAST: 1.1 ml Optison Administered, (1.9 ml wasted). SUMMARY: Dilated LV with LVH. Mild-moderate globally reduced LV systolic function (calculated LVEF 41%). No GLS data reported due to limited imaging resolution and deformation tracking. Indeterminate diastolic function. Normal RV size and systolic function. No hemodynamically significant valvular heart disease. Unable to calculate PASP due to faint TR jet signal. Dilated atria. No interatrial shunt detected on color-flow Doppler imaging. Dilated IVC size with reduced inspiratory collapse. Normal aortic root size. No intracardiac masses, vegetations, or thrombi detected. No pericardial effusion. Confirmed on ??05/02/2023 - 12:56:28 by Roldan Salcido MD By signing this report, the attending optical designer certifies that he or she has personally supervised and interpreted the echocardiogram and has reviewed and or edited and agrees with the written comments contained within the report. Procedure Note Roldan Salcido MD - 05/02/2023 Patient name: Eriberto Chau Date of test: 05/02/2023 Type of test: [facility] #: 0 Date of : 1990 (M) Parts Lister: Real Rosales RDCS Referring Physician: GLADYS GALLAGHER MD Contrast Agent: 1.1 ml Optison Administered, (1.9 ml wasted). Contrast Administered by: ICU Nurse Supervised/Interpreted by: Roldan Salcido MD Diagnosis: Location: [facility] Reason for test: chest pain MV Structure: Normal, MV Motion: Normal, Mitral Annulus: Normal AV Structure: tricuspid and is Normal, AV Motion: Normal Aotic root: Normal, TM: Normal, PV: Normal Valvular Vegetations: none seen, Mass/Thrombi: none seen RA: Normal Measurements: M-Mode Normal Aotic Root: <3.8 LA: <4.0 RV: <2.8 LV(ED): <5.7 LV(ES): Variable 2D Linear Normal Aotic Root: 3.7 cm <4.0 Ao Indexed: 1.7 cm/M2 <2.0 LA: <4.0 RV: 3.5 cm <4.2 LV(ED): 5.6 cm <5.9 LV(ES): 4.2 cm <4.0 2D Vol. Normal Indexed Indexed Normal RA: 75.0 ml 33.8 ml/M2 11-39 LA: 80.0 ml 36.1 ml/M2 16-34 RV: <12.7 LV(ED): 180.0 ml 62-150 81.2 ml/M2 <75 LV(ES): 107.0 ml 21-61 48.3 ml/M2 <32 3D Vol. Indexed Normal LV(ED): <75 LV(ES): <32 LV EF: 41 % (Normal: >=52%) LV Septum: 1.3 cm (Normal: <1.0 cm) Wall Motion Scoring (1=Normal 2=Hypo 3=Akinetic 4=Dyskin./Aneurysm 0=Not visualized) Parasternal Long [place]:MAS=2 BAS=2 MIL=2 GARO=2 Parasternal Short [place]:MAS=2 MIS=2 NJ=2 MIL=2 MAL=2 MA=2 Apical 4 Chambers:=2 MIS=2 BIS=2 BAL=2 MAL=2 AL=2 AC=2 Apical 2 Chambers:AI=2 NJ=2 BI=2 BA=2 MA=2 AA=2 AC=2 LV Global Longitudinal Strain: RV Global Longitudinal Strain: LV Function: Mild Global reduction in LV Ejection Fraction (EF= 41-51%) RV Function: Normal Septal Motion: Normal Pericardial Effusion: none seen Atrial Septum: Normal DOPPLER/COLOR FLOW DOPPLER RESULTS: Diastolic Function: indeterminate Tricuspid Valve: normal TV Pulmonic Valve: normal PV AV Regurgitation: No AR seen AV Stenosis: no AV Area: cm2 AV Pressure Gradient (mmHg): Mean: 0, Peak:0 MV Regurgitation: No MR seen MV Stenosis: no MS MV Area: cm2 MV Pressure Gradient (mmHg): Mean: 0 MV ERO: cm Regurg. Vol.: ml/beat Regurg. Frac.: % PA Pressure: mmHg DOPPLER/COLOR FOLOW DOPPLER COMMENTS: No AR seen, No MR seen, no , no MS, normal TV, normal PV. Diastolic function: indeterminate CONTRAST: 1.1 ml Optison Administered, (1.9 ml wasted). SUMMARY: Dilated LV with LVH. Mild-moderate globally reduced LV systolic function (calculated LVEF 41%). No GLS data reported due to limited imaging resolution and deformation tracking. Indeterminate diastolic function. Normal RV size and systolic function. No hemodynamically significant valvular heart disease. Unable to calculate PASP due to faint TR jet signal. Dilated atria. No interatrial shunt detected on color-flow Doppler imaging. Dilated IVC size with reduced inspiratory collapse. Normal aortic root size. No intracardiac masses, vegetations, or thrombi detected. No pericardial effusion. Confirmed on 05/02/2023 - 12:56:28 by Roldan Salcido MD By signing this report, the attending optical designer certifies that he or she has personally supervised and interpreted the echocardiogram and has reviewed and or edited and agrees with the written comments contained within the report. Gladys Gallagher NP CV ECHO PROCEDURES Final Result * Prepare platelets: 4 Units (05/02/2023 10:34 AM ELECTRO OPTICS ENGINEER) [facility] Product code [id number] Unit Number [id number] [facility] Product Blood Type APOS [facility] Dispense Status PRESUMED TRANSFUSED [facility] Blood (Blood, Venous) 05/02/2023 10:34 AM ELECTRO OPTICS ENGINEER 05/02/2023 10:34 AM ELECTRO OPTICS ENGINEER Narrative [facility] - 05/06/2023 4:02 PM ELECTRO OPTICS ENGINEER Specify Procedure:->Surgery Are special requirements needed? (all products are leukoreduced)->No Date required:-20230502 PLT # of Units:-4-Units Reasons:-Hold for procedure (specify procedure)} Alonzo Duncan MD BLOOD BANK PRODUCT ORDER CAROLINE Final Result Performing Organization Address [facility] de Phone Number [facility] [employer] [place] [address] * Prepare RBC: 4 Units (05/02/2023 10:33 AM ELECTRO OPTICS ENGINEER) [facility] Product code [id number] [facility] Unit Number [id number] 8-P [facility] Product Blood Type APOS [facility] Dispense Status RETURNED [facility] Product code [id number] [facility] Unit Number [id number] 3-R [facility] Product Blood Type APOS [facility] Dispense Status RETURNED [facility] Product code [id number] [facility] Unit Number [id number] 1-S [facility] Product Blood Type APOS [facility] Dispense Status RETURNED [facility] Product code [id number] Unit Number [id number] 4-P [facility] Product Blood Type APOS [facility] Dispense Status RETURNED [facility] Blood 05/02/2023 10:3 3 AM ELECTRO OPTICS ENGINEER 05/02/2023 10:34 AM ELECTRO OPTICS ENGINEER Narrative [facility] - 05/03/2023 6:13 AM ELECTRO OPTICS ENGINEER Are special requirements needed? (All products are leukoreduced and CMV- safe)- >No Date required:-20230502 LRRBC # of [id number] Reasons:-Intra-op transfusion} Alonzo Duncan MD BLOOD BANK PRODUCT ORDER CAROLINE Final Result Performing Organization Address [facility] Co de Phone Number [facility] [place] [address] * eGFR (05/02/2023 10:12 AM ELECTRO OPTICS ENGINEER) eGFR 84 >=60 mL/min/1. 73 m2 [facility] Comment: Interpretive Data Reference Interval Normal ?>/= [...] interpretive data was last reviewed 2021. Blood 05/02/2023 10:1 2 AM ELECTRO OPTICS ENGINEER 05/02/2023 10:22 AM ELECTRO OPTICS ENGINEER us Alonzo Duncan MD LAB BLOOD ORDERABLES Fin al Result [facility] Department of Laboratories [place], [place] [id number] * (ABNORMAL) Comprehensive metabolic panel (05/02/2023 10:12 AM ELECTRO OPTICS ENGINEER) Pathologist [facility] Sodium 134(L) 135 - 145 mmol/L [facility] Potassium, pl See Comment 3.3 - 4.9 mmol/L [facility] Comment:Credited; Hemolyzed Specimen Chloride 104 97 - 110 mmol/L [facility] CO2 21(L) 22 - 32 mmol/L [facility] Anion gap 9 2 - 15 mmol/L [facility] BUN 18 6 - 25 mg/dL [facility] Creatinine 1.19 0.80 - 1.30 mg/dL [facility] Glucose 104 70 - 199 mg/dL [facility] Comment: Interpretive Data Fasting glucose >/= [...] interpretive data was last revised 2022. Calcium 7.9(L) 8.5 - 10.3 mg/dL [facility] Bilirubin, total 0.4 0.1 - 1.2 mg/dL [facility] Protein, pl 5.9(L) 6.5 - 8.5 g/dL [facility] Albumin 3.3(L) 3.5 - 5.0 g/dL [facility] Alk phos 63 40 - 130 Units/L [facility] Comment:Hemolyzed; result ma y be falsely decreased ALT See Comment 7 - 55 Units/L [facility] Comment:Credited, hemolyzed specimen. AST See Comment 10 - 50 Units/L [facility] Comment:Credited, hemolyzed specimen. Blood 05/02/2023 10:1 2 AM ELECTRO OPTICS ENGINEER 05/02/2023 10:22 AM ELECTRO OPTICS ENGINEER us Alonzo Duncan MD LAB BLOOD ORDERABLES Fin al Result [facility] Department [place] [address] * Lactate (05/02/2023 10:12 AM ELECTRO OPTICS ENGINEER) Lactate 0.9 0.7 - 2.0 mmol/L [facility] Blood 05/02/2023 10:1 2 AM ELECTRO OPTICS ENGINEER 05/02/2023 10:22 AM ELECTRO OPTICS ENGINEER Faustino Elias MD LAB BLOOD ORDERABLES Final Result [facility] Department [place] [address] * (ABNORMAL) CBC without differential (05/02/2023 10:12 AM ELECTRO OPTICS ENGINEER) [facility] WBC 14.9(H) 3.8 - 9.9 K/cumm [facility] Hgb 10.9(L) 13.0 - 17.5 g/dL [facility] Comment: Interpretive Data A reference range for this assay has not been established for patients with an unknown legal sex. Please refer to the laboratory test catalog for established sex-specific reference intervals. Current interpretive data was last revised on 2023. Hct 31.0(L) 38.9 - 50.3 % [facility] Comment: Interpretive Data A reference range for this assay has not been established for patients with an unknown legal sex. Please refer to the laboratory test catalog for established sex-specific reference intervals. Current interpretive data was last revised on 2023. Plt 108(L) 150 - 400 K/cumm [facility] MPV 10.2 9.1 - 12.3 fL [facility] RBC 3.47(L) 4.30 - 5.80 M/cumm [facility] Comment: Interpretive Data A reference range for this assay has not been established for patients with an unknown legal sex. Please refer to the laboratory test catalog for established sex-specific reference intervals. Current interpretive data was last revised on 2023. MCV 89.3 81.3 - 96.4 fL [facility] MCH 31.4 27.1 - 33.3 pg [facility] MCHC 35.2 32.3 - 35.7 g/dL [facility] RDW CV 12.6 11.1 - 14.9 % [facility] RDW SD 41.1 35.7 - 48.1 fL [facility] NRBC abs 0.02(H) 0.00 - 0.01 K/cumm [facility] Blood 05/02/2023 10:1 2 AM ELECTRO OPTICS ENGINEER 05/02/2023 10:23 AM ELECTRO OPTICS ENGINEER us Faustino Elias MD LAB BLOOD ORDERABLES Final Result [facility] Department [place] [address] * CTA Chest Abdominal Aorta and Bilateral Iliofemoral (05/02/2023 9:47 AM ELECTRO OPTICS ENGINEER) Anatomical Region Laterality Modality Body N/A Computed Tomogra phy 05/02/2023 10:3 4 AM ELECTRO OPTICS ENGINEER Impressions 05/02/2023 2:28 PM ELECTRO OPTICS ENGINEER 1. ??Interval retrograde propagation of a type B thoracic aortic dissection which now extends from approximately zone 0 to the left common iliac artery. ??No change in aortic caliber. ??This dissection may originate in the mid thoracic aorta, where a fenestration is present at the level of T4 2. ??Increasing fat stranding about the aortic arch and great vessels, likely reactive in the setting of dissection propagation. ??Recommend close follow-up for possible instability. 3. 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 The Critical results were discussed with MD Luiza by Dr. Emmanuel Browning MD ??on 05/02/2023 at 10:23 AM ?? Dictated by: Emmanuel Browning MD The radiology attending physician has personally reviewed this study, and had reviewed and/or edited this written report and agrees with it. Electronically signed by: Timmy Castillo M.D. Narrative 05/02/2023 2:28 PM ELECTRO OPTICS ENGINEER EXAMINATION: ??CT ANGIOGRAPHY OF CHEST, ABDOMEN, PELVIS, AND LOWER EXTREMITIES WITH CONTRAST HISTORY: Aortic dissection, follow-up TECHNIQUE: CT angiography of the chest, abdomen, pelvis, and lower extremities was performed following the uneventful intravenous administration of 120 ml Optiray-350. Vascular 3D images were generated on a dedicated workstation and also reviewed. COMPARISON: 05/01/2023 FINDINGS: VASCULAR FINDINGS: Thoracic aorta: Redemonstrated thoracic aortic dissection with interval increased size of the false lumen, now extending cranially to the level of zone 0 and caudally to the level of the left common iliac artery, although assessment of the proximal margin of the dissection is limited by motion. ??Contrast is present within the false lumen, likely originating from a fenestration along the posterior medial margin of the dissection flap at the level of approximately T4. No significant change in size of the thoracic aortic caliber which measures approximately 3.3 cm (was 3.3 cm). ??The true lumen at that level measures approximately 1.2 cm (was 1.2 cm). Increased fat stranding is noted about the aortic arch and the proximal great vessels without intraluminal extension of the dissection. ??There is partial thrombosis of the false lumen within the distal thoracic aorta. 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 ??The superior mesenteric artery, right renal artery, left renal artery, and inferior mesenteric artery arise from the true lumen. Opacification of the false lumen within the infrarenal abdominal aorta with limited to retrograde reflux of contrast through the distal margin of the dissection flap. The distal vasculature is patent without evidence of significant atherosclerotic disease or additional dissection. ??There is 3 vessel runoff on the right. ??The left anterior tibial artery is congenitally diminutive with collateral flow from the left peroneal artery which is patent without stenosis. NON-VASCULAR FINDINGS: Mild thoracic lymphadenopathy, likely reactive. ??The heart is normal in size without pericardial effusion. Bibasilar atelectasis present without consolidation, effusion, or pneumothorax. Hepatic hemangioma without suspicious liver lesion. ??No biliary dilatation. ??The main portal vein is patent. ??The spleen, pancreas, gallbladder, and adrenal glands are normal. ??Multiple renal cysts without hydronephrosis. ??The urinary bladder is unremarkable and decompressed with Hutton catheter. No evidence of mesenteric ischemia. ??No bowel obstruction. ??No suspicious abdominal or pelvic lymphadenopathy. ??No intra-abdominal free fluid or gas. ??No acute fracture or osseous lesion. Procedure Note Timmy Castillo MD - 05/02/2023 EXAMINATION: CT ANGIOGRAPHY OF CHEST, ABDOMEN, PELVIS, AND LOWER EXTREMITIES WITH CONTRAST HISTORY: Aortic dissection, follow-up TECHNIQUE: CT angiography of the chest, abdomen, pelvis, and lower extremities was performed following the uneventful intravenous administration of 120 ml [id number]. Vascular 3D images were generated on a dedicated workstation and also reviewed. COMPARISON: 05/01/2023 FINDINGS: VASCULAR FINDINGS: Thoracic aorta: Redemonstrated thoracic aortic dissection with interval increased size of the false lumen, now extending cranially to the level of zone 0 and caudally to the level of the left common iliac artery, although assessment of the proximal margin of the dissection is limited by motion. Contrast is present within the false lumen, likely originating from a fenestration along the posterior medial margin of the dissection flap at the level of approximately T4. No significant change in size of the thoracic aortic caliber which measures approximately 3.3 cm (was 3.3 cm). The true lumen at that level measures approximately 1.2 cm (was 1.2 cm). Increased fat stranding is noted about the aortic arch and the proximal great vessels without intraluminal extension of the dissection. There is partial thrombosis of the false lumen within the distal thoracic aorta. 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 The superior mesenteric artery, right renal artery, left renal artery, and inferior mesenteric artery arise from the true lumen. Opacification of the false lumen within the infrarenal abdominal aorta with limited to retrograde reflux of contrast through the distal margin of the dissection flap. The distal vasculature is patent without evidence of significant atherosclerotic disease or additional dissection. There is 3 vessel runoff on the right. The left anterior tibial artery is congenitally diminutive with collateral flow from the left peroneal artery which is patent without stenosis. NON-VASCULAR FINDINGS: Mild thoracic lymphadenopathy, likely reactive. The heart is normal in size without pericardial effusion. Bibasilar atelectasis present without consolidation, effusion, or pneumothorax. Hepatic hemangioma without suspicious liver lesion. No biliary dilatation. The main portal vein is patent. The spleen, pancreas, gallbladder, and adrenal glands are normal. Multiple renal cysts without hydronephrosis. The urinary bladder is unremarkable and decompressed with Hutton catheter. No evidence of mesenteric ischemia. No bowel obstruction. No suspicious abdominal or pelvic lymphadenopathy. No intra-abdominal free fluid or gas. No acute fracture or osseous lesion. IMPRESSION: 1. Interval retrograde propagation of a type B thoracic aortic dissection which now extends from approximately zone 0 to the left common iliac artery. No change in aortic caliber. This dissection may originate in the mid thoracic aorta, where a fenestration is present at the level of T4 2. Increasing fat stranding about the aortic arch and great vessels, likely reactive in the setting of dissection propagation. Recommend close follow-up for possible instability. 3. 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 The Critical results were discussed with MD Luiza by Dr. Emmanuel Browning MD on 05/02/2023 at 10:23 AM Dictated by: Emmanuel Browning MD The radiology attending physician has personally reviewed this study, and had reviewed and/or edited this written report and agrees with it. Electronically signed by: Timmy Castillo M.D. Alonzo Duncan MD IMG CT PROCEDURES Final Result * POCT glucose (05/02/2023 4:16 AM ELECTRO OPTICS ENGINEER) [facility] Glucose, POC 117 70 - 199 mg/dL [facility] Blood 05/02/2023 4:16 AM ELECTRO OPTICS ENGINEER 05/02/2023 4:16 AM ELECTRO OPTICS ENGINEER Alonzo Duncan MD LAB POCT ORDERABLES - DE VICE Final Result [facility] Department [place] [address] * eGFR (05/02/2023 4:10 AM ELECTRO OPTICS ENGINEER) [facility] eGFR 83 >=60 mL/min/1. 73 m2 [facility] Comment: Interpretive Data Reference Interval Normal [...] interpretive data was last reviewed 2021. Blood 05/02/2023 4:10 AM ELECTRO OPTICS ENGINEER 05/02/2023 4:31 AM ELECTRO OPTICS ENGINEER us Alonzo Duncan MD LAB BLOOD ORDERABLES Fin al Result [facility] Department [place] [address] * (ABNORMAL) Comprehensive metabolic panel (05/02/2023 4:10 AM ELECTRO OPTICS ENGINEER) Sodium 138 135 - 145 mmol/L [facility] Potassium, pl See Comment 3.3 - 4.9 mmol/L [facility] Comment:Credited; Hemolyzed Specimen Chloride 107 97 - 110 mmol/L [facility] CO2 23 22 - 32 mmol/L [facility] Anion gap 8 2 - 15 mmol/L [facility] BUN 20 6 - 25 mg/dL [facility] Creatinine 1.21 0.80 - 1.30 mg/dL [facility] Glucose 122 70 - 199 mg/dL [facility] Comment: Interpretive Data Fasting glucose >/= [...] interpretive data was last revised 2022. Calcium 7.8(L) 8.5 - 10.3 mg/dL [facility] Bilirubin, total 0.4 0.1 - 1.2 mg/dL [facility] Protein, pl 6.2(L) 6.5 - 8.5 g/dL [facility] Albumin 3.5 3.5 - 5.0 g/dL [facility] Alk phos 65 40 - 130 Units/L [facility] Comment:Hemolyzed; result ma y be falsely decreased ALT See Comment 7 - 55 Units/L [facility] Comment:Credited, hemolyzed specimen. AST See Comment 10 - 50 Units/L [facility] Comment:Credited, hemolyzed specimen. Blood 05/02/2023 4:10 AM ELECTRO OPTICS ENGINEER 05/02/2023 4:31 AM ELECTRO OPTICS ENGINEER us Alonzo Duncan MD LAB BLOOD ORDERABLES Fin al Result Performing Organization Address [facility]/ZIP Co de Phone Number [facility] Department [place] [address] * Lactate (05/02/2023 4:10 AM ELECTRO OPTICS ENGINEER) Lactate 0.9 0.7 - 2.0 mmol/L [facility] Blood 05/02/2023 4:10 AM ELECTRO OPTICS ENGINEER 05/02/2023 4:36 AM ELECTRO OPTICS ENGINEER us Faustino Elias MD LAB BLOOD ORDERABLES Final Result Performing Organization Address [facility] Co de Phone Number [facility] Department [place] [address] * (ABNORMAL) CBC without differential (05/02/2023 4:10 AM ELECTRO OPTICS ENGINEER) [facility] WBC 16.1(H) 3.8 - 9.9 K/cumm [facility] Hgb 11.1(L) 13.0 - 17.5 g/dL [facility] Comment: Interpretive Data A reference range for this assay has not been established for patients with an unknown legal sex. Please refer to the laboratory test catalog for established sex-specific reference intervals. Current interpretive data was last revised on 2023. Hct 32.6(L) 38.9 - 50.3 % [facility] Comment: Interpretive Data A reference range for this assay has not been established for patients with an unknown legal sex. Please refer to the laboratory test catalog for established sex-specific reference intervals. Current interpretive data was last revised on 2023. Plt 108(L) 150 - 400 K/cumm [facility] MPV 9.4 9.1 - 12.3 fL [facility] RBC 3.58(L) 4.30 - 5.80 M/cumm [facility] Comment: Interpretive Data A reference range for this assay has not been established for patients with an unknown legal sex. Please refer to the laboratory test catalog for established sex-specific reference intervals. Current interpretive data was last revised on 2023. MCV 91.1 81.3 - 96.4 fL [facility] MCH 31.0 27.1 - 33.3 pg [facility] MCHC 34.0 32.3 - 35.7 g/dL [facility] RDW CV 12.5 11.1 - 14.9 % [facility] RDW SD 41.5 35.7 - 48.1 fL [facility] NRBC abs 0.00 0.00 - 0.01 K/cumm [facility] Blood 05/02/2023 4:10 AM ELECTRO OPTICS ENGINEER 05/02/2023 4:36 AM ELECTRO OPTICS ENGINEER us Faustino Elias MD LAB BLOOD ORDERABLES Final Result [facility] Department [place] [address] * (ABNORMAL) Protime-INR (05/02/2023 4:10 AM ELECTRO OPTICS ENGINEER) Pathologist [facility] PT 14.9(H) 10.3 - 13.7 sec [facility] INR 1.31(H) 0.90 - 1.20 [facility] Comment: Interpretive data Oral anticoagulant therapeutic ranges: Venous thromboembolism prophylaxis or treatment: 2.0-3.0 CARDIOLOGY Standard range: 2.0-3.0 High-intensity range: 2.5-3.5 Refer to indication-specific guidelines for appropriate target ranges for prosthetic heart valve replacement. Current interpretive data was last revised on 2019. Blood 05/02/2023 4:10 AM ELECTRO OPTICS ENGINEER 05/02/2023 4:36 AM ELECTRO OPTICS ENGINEER Marvin Granados MD LAB BLOOD ORDERABLES Final Re sult Performing Organization Address [facility]/ZIP Co de Phone Number [facility] Department [place] [address] * (ABNORMAL) Calcium, ionized (05/02/2023 4:10 AM ELECTRO OPTICS ENGINEER) [facility] Calcium, Ionized 4.45(L) 4.50 - 5.10 mg/dL [facility] Blood 05/02/2023 4:10 AM ELECTRO OPTICS ENGINEER 05/02/2023 4:31 AM ELECTRO OPTICS ENGINEER Marvin Granados MD LAB BLOOD ORDERABLES Final Re sult Performing Organization Address [facility]/State/ZIP Co de Phone Number [facility] [place] [place] [address] * eGFR (05/01/2023 11:52 PM ELECTRO OPTICS ENGINEER) Pathologist [facility] eGFR 79 >=60 mL/min/1. 73 m2 [facility] Comment: Interpretive Data Reference Interval Normal [...] interpretive data was last reviewed 2021. Blood 05/01/2023 11:5 2 PM ELECTRO OPTICS ENGINEER 05/02/2023 12:04 AM ELECTRO OPTICS ENGINEER us Alonzo Duncan MD LAB BLOOD ORDERABLES Fin al Result [facility] Department [place] [address] * (ABNORMAL) Comprehensive metabolic panel (05/01/2023 11:52 PM ELECTRO OPTICS ENGINEER) Sodium 139 135 - 145 mmol/L [facility] Potassium, pl 4.0 3.3 - 4.9 mmol/L [facility] Chloride 108 97 - 110 mmol/L [facility] CO2 24 22 - 32 mmol/L [facility] Anion gap 7 2 - 15 mmol/L [facility] BUN 22 6 - 25 mg/dL [facility] Creatinine 1.25 0.80 - 1.30 mg/dL [facility] Glucose 108 70 - 199 mg/dL [facility] Comment: Interpretive Data Fasting glucose >/= [...] interpretive data was last revised 2022. Calcium 7.7(L) 8.5 - 10.3 mg/dL [facility] Bilirubin, total 0.4 0.1 - 1.2 mg/dL [facility] Protein, pl 5.8(L) 6.5 - 8.5 g/dL [facility] Albumin 3.7 3.5 - 5.0 g/dL [facility] Alk phos 69 40 - 130 Units/L [facility] ALT 18 7 - 55 Units/L [facility] AST 21 10 - 50 Units/L [facility] Blood 05/01/2023 11:5 2 PM ELECTRO OPTICS ENGINEER 05/02/2023 12:04 AM ELECTRO OPTICS ENGINEER us Alonzo Duncan MD LAB BLOOD ORDERABLES Fin al Result Performing Organization Address City/[facility]/ZIP Co de Phone Number [facility] Department [place] [employer] [place] [address] * Lactate (05/01/2023 11:52 PM ELECTRO OPTICS ENGINEER) Lactate 0.9 0.7 - 2.0 mmol/L [facility] Blood 05/01/2023 11:5 2 PM ELECTRO OPTICS ENGINEER 05/02/2023 12:04 AM ELECTRO OPTICS ENGINEER us Faustino Elias MD LAB BLOOD ORDERABLES Final Result Performing Organization Address [facility]/ZIP Co de Phone Number [facility] Department [place] [address] * (ABNORMAL) CBC without differential (05/01/2023 11:52 PM ELECTRO OPTICS ENGINEER) [facility] WBC 15.1(H) 3.8 - 9.9 K/cumm [facility] Hgb 10.9(L) 13.0 - 17.5 g/dL [facility] Comment: Interpretive Data A reference range for this assay has not been established for patients with an unknown legal sex. Please refer to the laboratory test catalog for established sex-specific reference intervals. Current interpretive data was last revised on 2023. Hct 31.8(L) 38.9 - 50.3 % [facility] Comment: Interpretive Data A reference range for this assay has not been established for patients with an unknown legal sex. Please refer to the laboratory test catalog for established sex-specific reference intervals. Current interpretive data was last revised on 2023. Plt 104(L) 150 - 400 K/cumm [facility] MPV 9.5 9.1 - 12.3 fL [facility] RBC 3.55(L) 4.30 - 5.80 M/cumm [facility] Comment: Interpretive Data A reference range for this assay has not been established for patients with an unknown legal sex. Please refer to the laboratory test catalog for established sex-specific reference intervals. Current interpretive data was last revised on 2023. MCV 89.6 81.3 - 96.4 fL [facility] MCH 30.7 27.1 - 33.3 pg [facility] MCHC 34.3 32.3 - 35.7 g/dL [facility] RDW CV 12.5 11.1 - 14.9 % [facility] RDW SD 41.4 35.7 - 48.1 fL [facility] NRBC abs 0.00 0.00 - 0.01 K/cumm [facility] Blood 05/01/2023 11:5 2 PM ELECTRO OPTICS ENGINEER 05/02/2023 12:04 AM ELECTRO OPTICS ENGINEER us Faustino Elias MD LAB BLOOD ORDERABLES Final Result [facility] Department [place] [address] * (ABNORMAL) POC Blood Gas and Chemistries, Arterial - (05/01/2023 11:03 PM ELECTRO OPTICS ENGINEER) [facility] pH, Art POC 7.37 7.35 - 7.45 [facility] pCO2, Art POC 39 35 - 45 mmHg [facility] pO2, Art POC 102 83 - 108 mmHg [facility] Na, POC 139 135 - 145 mmol/L [facility] K POC 3.9 3.3 - 4.9 mmol/L [facility] Comment: Interpretive Data This method is not able to assess for hemolysis, which may falsely increase potassium concentrations. If further testing is needed to evaluate this result, consider in-laboratory plasma potassium. Current Interpretive Data was last revised on 2022. Cl, POC 109 97 - 110 mmol/L [facility] Ionized Ca, POC 4.51 4.50 - 5.10 mg/dL [facility] Glucose, POC 112 70 - 199 mg/dL [facility] Lactate, POC 1.0 0.7 - 2.2 mmol/L [facility] SO2 (natalia) arterial 99(H) 90 - 95 % [facility] Base excess, POC -2.5 mmol/L [facility] HCO3, Art POC 22 20 - 30 mmol/L [facility] Hct, POC 35.0(L) 41.4 - 51.6 % [facility] O2 Sat, Art POC (Calc) 98 % [facility] Total Hb, POC 11.6(L) 13.8 - 17.2 g/dL [facility] Blood 05/01/2023 11:0 3 PM ELECTRO OPTICS ENGINEER 05/01/2023 11:03 PM ELECTRO OPTICS ENGINEER us Alonzo Duncan MD LAB POCT ORDERABLES - DE VICE Final Result [facility] Department [place] [address] * Potassium, whole blood (05/01/2023 7:28 PM ELECTRO OPTICS ENGINEER) [facility] Potassium, bld 4.1 3.3 - 4.9 mmol/L [facility] Blood 05/01/2023 7:28 PM ELECTRO OPTICS ENGINEER 05/01/2023 7:35 PM ELECTRO OPTICS ENGINEER Alonzo Duncan MD LAB BLOOD ORDERABLES Fin al Result Performing Organization Address [facility] Co de Phone Number [facility] [place] [address] * (ABNORMAL) Hepatic function panel (05/01/2023 7:28 PM ELECTRO OPTICS ENGINEER) Bilirubin, total 0.4 0.1 - 1.2 mg/dL [facility] Bilirubin, direct <0.2 0.1 - 0.3 mg/dL [facility] Protein, pl 6.2(L) 6.5 - 8.5 g/dL [facility] Albumin 3.5 3.5 - 5.0 g/dL [facility] Alk phos 71 40 - 130 Units/L [facility] ALT 17 7 - 55 Units/L [facility] AST 19 10 - 50 Units/L [facility] Blood 05/01/2023 7:28 PM ELECTRO OPTICS ENGINEER 05/01/2023 7:43 PM ELECTRO OPTICS ENGINEER us Alonzo Duncan MD LAB BLOOD ORDERABLES Fin al Result Performing Organization Address [facility] Co de Phone Number [facility] [place] [address] * POCT glucose (05/01/2023 7:27 PM ELECTRO OPTICS ENGINEER) Glucose, POC 125 70 - 199 mg/dL [facility] Blood 05/01/2023 7:27 PM ELECTRO OPTICS ENGINEER 05/01/2023 7:27 PM ELECTRO OPTICS ENGINEER Alonzo Duncan MD LAB POCT ORDERABLES - DE VICE Final Result Performing Organization Address [facility] Co de Phone Number [facility] Department [place] [address] * XR Chest 1 View (Portable) (05/01/2023 6:41 PM ELECTRO OPTICS ENGINEER) Anatomical Region Laterality Modality Body, Chest N/A Computed Radiogr aphy 05/02/2023 9:45 AM ELECTRO OPTICS ENGINEER Impressions 05/02/2023 9:47 AM ELECTRO OPTICS ENGINEER Comparison is made to chest radiograph 05/01/23 4:42 AM. The patient is slightly rotated. ??The mediastinum is acutely widened from the prior exam, concerning for rupture of known dissection. ??No pleural effusion. ??No focal consolidation. ??No pneumothorax. ??The cardiac silhouette is enlarged, unchanged from prior exam. The Critical results were discussed with Dr. Osorio by Dr. Childers on 05/02/23 at 9:25 AM Dictated by: Shady Childers MD The radiology attending physician has personally reviewed this study, and had reviewed and/or edited this written report and agrees with it. Electronically signed by: Otoniel Avalos M.D. Narrative 05/02/2023 9:47 AM ELECTRO OPTICS ENGINEER EXAMINATION: 1 view chest radiograph Procedure Note Otoniel Avalos MD - 05/02/2023 EXAMINATION: 1 view chest radiograph IMPRESSION: Comparison is made to chest radiograph 05/01/23 4:42 AM. The patient is slightly rotated. The mediastinum is acutely widened from the prior exam, concerning for rupture of known dissection. No pleural effusion. No focal consolidation. No pneumothorax. The cardiac silhouette is enlarged, unchanged from prior exam. The Critical results were discussed with Dr. Osorio by Dr. Childers on 05/02/23 at 9:25 AM Dictated by: Shady Childers MD The radiology attending physician has personally reviewed this study, and had reviewed and/or edited this written report and agrees with it. Electronically signed by: Otoniel Avalos M.D. us Marvin Granados MD IMG XR PROCEDURES Final Resul t * eGFR (05/01/2023 5:50 PM ELECTRO OPTICS ENGINEER) eGFR 79 >=60 mL/min/1. 73 m2 [facility] Comment: Interpretive Data Reference Interval Normal [...] interpretive data was last reviewed 2021. Blood 05/01/2023 5:50 PM ELECTRO OPTICS ENGINEER 05/01/2023 6:02 PM ELECTRO OPTICS ENGINEER Alonzo Duncan MD LAB BLOOD ORDERABLES Fin al Result [facility] Department [place] [address] * (ABNORMAL) Comprehensive metabolic panel (05/01/2023 5:50 PM ELECTRO OPTICS ENGINEER) [facility] Sodium 139 135 - 145 mmol/L [facility] Potassium, pl See Comment 3.3 - 4.9 mmol/L [facility] Comment:Credited; Hemolyzed Specimen Chloride 106 97 - 110 mmol/L [facility] CO2 23 22 - 32 mmol/L [facility] Anion gap 10 2 - 15 mmol/L [facility] BUN 23 6 - 25 mg/dL [facility] Creatinine 1.26 0.80 - 1.30 mg/dL [facility] Glucose 117 70 - 199 mg/dL [facility] Comment: Interpretive Data Fasting glucose >/= [...] interpretive data was last revised 2022. Calcium 7.8(L) 8.5 - 10.3 mg/dL [facility] Bilirubin, total 0.5 0.1 - 1.2 mg/dL [facility] Protein, pl 6.4(L) 6.5 - 8.5 g/dL [facility] Albumin 3.7 3.5 - 5.0 g/dL [facility] Alk phos 65 40 - 130 Units/L [facility] Comment:Hemolyzed; result ma y be falsely decreased ALT See Comment 7 - 55 Units/L [facility] Comment:Credited; Hemolyzed Specimen AST See Comment 10 - 50 Units/L [facility] Comment:Credited; Hemolyzed Specimen Blood 05/01/2023 5:50 PM ELECTRO OPTICS ENGINEER 05/01/2023 5:56 PM ELECTRO OPTICS ENGINEER us Alonzo Duncan MD LAB BLOOD ORDERABLES Fin al Result [facility] Department [place] [address] * Lactate, whole blood (05/01/2023 5:10 PM ELECTRO OPTICS ENGINEER) Lactate, bld 1.5 0.7 - 2.0 mmol/L [facility] Blood 05/01/2023 5:10 PM ELECTRO OPTICS ENGINEER 05/01/2023 5:19 PM ELECTRO OPTICS ENGINEER Alonzo Duncan MD LAB BLOOD ORDERABLES Fin al Result [facility] [place] [address] * POCT glucose (05/01/2023 5:10 PM ELECTRO OPTICS ENGINEER) Glucose, POC 104 70 - 199 mg/dL [facility] Blood 05/01/2023 5:10 PM ELECTRO OPTICS ENGINEER 05/01/2023 5:10 PM ELECTRO OPTICS ENGINEER Alonzo Duncan MD LAB POCT ORDERABLES - DE VICE Final Result Performing Organization Address [facility] Co de Phone Number [facility] [place] [address] * (ABNORMAL) CBC without differential (05/01/2023 5:10 PM ELECTRO OPTICS ENGINEER) Pathologist [facility] WBC 15.0(H) 3.8 - 9.9 K/cumm [facility] Hgb 11.1(L) 13.0 - 17.5 g/dL [facility] Comment: Interpretive Data A reference range for this assay has not been established for patients with an unknown legal sex. Please refer to the laboratory test catalog for established sex-specific reference intervals. Current interpretive data was last revised on 2023. Hct 32.3(L) 38.9 - 50.3 % [facility] Comment: Interpretive Data A reference range for this assay has not been established for patients with an unknown legal sex. Please refer to the laboratory test catalog for established sex-specific reference intervals. Current interpretive data was last revised on 2023. Plt 110(L) 150 - 400 K/cumm [facility] MPV 9.0(L) 9.1 - 12.3 fL [facility] RBC 3.66(L) 4.30 - 5.80 M/cumm [facility] Comment: Interpretive Data A reference range for this assay has not been established for patients with an unknown legal sex. Please refer to the laboratory test catalog for established sex-specific reference intervals. Current interpretive data was last revised on 2023. MCV 88.3 81.3 - 96.4 fL [facility] MCH 30.3 27.1 - 33.3 pg [facility] MCHC 34.4 32.3 - 35.7 g/dL [facility] RDW CV 12.6 11.1 - 14.9 % [facility] RDW SD 41.1 35.7 - 48.1 fL [facility] NRBC abs 0.00 0.00 - 0.01 K/cumm [facility] Blood 05/01/2023 5:10 PM ELECTRO OPTICS ENGINEER 05/01/2023 5:19 PM ELECTRO OPTICS ENGINEER us Faustino Elias MD LAB BLOOD ORDERABLES Final Result Performing Organization Address City/[facility]/ZIP Co de Phone Number [facility] Department [place] [address] * Sepsis Lactate w/ Reflex (05/01/2023 1:18 PM ELECTRO OPTICS ENGINEER) Sepsis Lactate 1.9 0.7 - 2.0 mmol/L [facility] Blood 05/01/2023 1:18 PM ELECTRO OPTICS ENGINEER 05/01/2023 1:28 PM ELECTRO OPTICS ENGINEER us Lisa Christiansen MD LAB BLOOD ORDERABLES Sally l Result [facility] Department [place] [address] * AL CRITICAL CARE ILL/INJURED PATIENT INIT 30-74 MIN (05/01/2023 12:32 PM ELECTRO OPTICS ENGINEER) Narrative Kameron Wadsworth MD - 05/01/2023 12:32 PM ELECTRO OPTICS ENGINEER Kameron Wadsworth MD ? 05/01/2023 12:32 PM Critical Care Performed by: Kameron Wadsworth MD Authorized by: Kameron Wadsworth MD ?? Critical care provider statement: As reflected in the history, physical exam, orders, notes, and/or MDM, I was personally present while the patient was critically ill and provided critical care services for 40 minutes, excluding time involved in separately billable procedures. ??Critical care was necessary to treat or prevent imminent or life-threatening deterioration of the following condition(s): ?? aortic dissection/aneurysm and hypertensive crisis ??Critical care was time spent by me providing the following: ? continuous telemetry, continuous pulse oximetry, interpretation of bedside monitors, imaging, and arterial/venous lab draws, serial bedside patient exams and serial laboratory checks ?? initiation and active titration of vasoactive medications ?? I provided emergent necessary critical care [...] and discussed management with the admitting team. us Kameron Wadsworth MD IN CLINIC/BEDSIDE ORDERA BLES Final Result * POCT glucose (05/01/2023 11:40 AM ELECTRO OPTICS ENGINEER) Pathologist [facility] Glucose, POC 118 70 - 199 mg/dL [facility] Blood 05/01/2023 11:4 0 AM ELECTRO OPTICS ENGINEER 05/01/2023 11:40 AM ELECTRO OPTICS ENGINEER us Alonzo Duncan MD LAB POCT ORDERABLES - DE VICE Final Result [facility] Department [place] [address] * Troponin I high-sensitivity (05/01/2023 11:40 AM ELECTRO OPTICS ENGINEER) Pathologist [facility] Trop I hs 15 <=35 ng/L [facility] Comment: Interpretive Data For further [facility] resources including the diagnostic algorithm and an aid in interpretation, copy and paste this link: [email or web address] Current Interpretive Data last revised 2019. Blood 05/01/2023 11:4 0 AM ELECTRO OPTICS ENGINEER 05/01/2023 11:48 AM ELECTRO OPTICS ENGINEER Marvin Granados MD LAB BLOOD ORDERABLES Final Re sult Performing Organization Address [facility] de Phone Number [facility] Department [place] [address] * (ABNORMAL) Blood gas, arterial (05/01/2023 11:40 AM ELECTRO OPTICS ENGINEER) pH, Art 7.31(L) 7.35 - 7.45 [facility] PCO2, Arterial 46(H) 35 - 45 mmHg [facility] PO2, Arterial 134(H) 83 - 108 mmHg [facility] HCO3 Art (Calculated) 24 20 - 30 mmol/L [facility] BE, art -3 mmol/L [facility] Comment: Interpretive Data No Reference Range Established Current Interpretive Data was last revised on 2017 O2 Sat Art (Measured) 99(H) 90 - 95 % [facility] Blood 05/01/2023 11:4 0 AM ELECTRO OPTICS ENGINEER 05/01/2023 11:48 AM ELECTRO OPTICS ENGINEER Marvin Granados MD LAB BLOOD ORDERABLES Final Re sult Performing Organization Address [facility] Co de Phone Number [facility] Department [place] [address] * Creatine kinase (CK), total (05/01/2023 11:40 AM ELECTRO OPTICS ENGINEER) CK 197 40 - 300 Units/L [facility] Blood 05/01/2023 11:4 0 AM ELECTRO OPTICS ENGINEER 05/01/2023 11:48 AM ELECTRO OPTICS ENGINEER us Marvin Granados MD LAB BLOOD ORDERABLES Final Re sult Performing Organization Address City/[facility]/ZIP Co de Phone Number [facility] Department [place] [address] * eGFR (05/01/2023 10:15 AM ELECTRO OPTICS ENGINEER) eGFR 60 >=60 mL/min/1. 73 m2 [facility] Comment: Interpretive Data Reference Interval Normal [...] interpretive data was last reviewed 2021. Blood 05/01/2023 10:1 5 AM ELECTRO OPTICS ENGINEER 05/01/2023 10:24 AM ELECTRO OPTICS ENGINEER us Faustino Elias MD LAB BLOOD ORDERABLES Final Result Performing Organization Address City/[facility]/ZIP Co de Phone Number [facility] [place] [address] * (ABNORMAL) Lactate (05/01/2023 10:15 AM ELECTRO OPTICS ENGINEER) Lactate 2.7(H) 0.7 - 2.0 mmol/L [facility] Blood 05/01/2023 10:1 5 AM ELECTRO OPTICS ENGINEER 05/01/2023 10:22 AM ELECTRO OPTICS ENGINEER Faustino Elias MD LAB BLOOD ORDERABLES Final Result [facility] Department [place] [address] * (ABNORMAL) Comprehensive metabolic panel (05/01/2023 10:15 AM ELECTRO OPTICS ENGINEER) Pathologist [facility] Sodium 141 135 - 145 mmol/L [facility] Potassium, pl 4.1 3.3 - 4.9 mmol/L [facility] Chloride 105 97 - 110 mmol/L [facility] CO2 25 22 - 32 mmol/L [facility] Anion gap 11 2 - 15 mmol/L [facility] BUN 21 6 - 25 mg/dL [facility] Creatinine 1.57(H) 0.80 - 1.30 mg/dL [facility] Glucose 134 70 - 199 mg/dL [facility] Comment: Interpretive Data Fasting glucose >/= [...] 2022. Calcium 8.5 8.5 - 10.3 mg/dL [facility] Bilirubin, total 1.1 0.1 - 1.2 mg/dL [facility] Protein, pl 6.9 6.5 - 8.5 g/dL [facility] Albumin 4.1 3.5 - 5.0 g/dL [facility] Alk phos 80 40 - 130 Units/L [facility] ALT 21 7 - 55 Units/L [facility] AST 21 10 - 50 Units/L [facility] Blood 05/01/2023 10:1 5 AM ELECTRO OPTICS ENGINEER 05/01/2023 10:22 AM ELECTRO OPTICS ENGINEER Faustino Elias MD LAB BLOOD ORDERABLES Final Result [facility] Department [place] [address] * (ABNORMAL) CBC without differential (05/01/2023 10:15 AM ELECTRO OPTICS ENGINEER) Pathologist [facility] WBC 16.7(H) 3.8 - 9.9 K/cumm [facility] Hgb 12.5(L) 13.0 - 17.5 g/dL [facility] Comment: Interpretive Data A reference range for this assay has not been established for patients with an unknown legal sex. Please refer to the laboratory test catalog for established sex-specific reference intervals. Current interpretive data was last revised on 2023. Hct 37.2(L) 38.9 - 50.3 % [facility] Comment: Interpretive Data A reference range for this assay has not been established for patients with an unknown legal sex. Please refer to the laboratory test catalog for established sex-specific reference intervals. Current interpretive data was last revised on 2023. Plt 109(L) 150 - 400 K/cumm [facility] MPV 8.8(L) 9.1 - 12.3 fL [facility] RBC 4.14(L) 4.30 - 5.80 M/cumm [facility] Comment: Interpretive Data A reference range for this assay has not been established for patients with an unknown legal sex. Please refer to the laboratory test catalog for established sex-specific reference intervals. Current interpretive data was last revised on 2023. MCV 89.9 81.3 - 96.4 fL [facility] MCH 30.2 27.1 - 33.3 pg [facility] MCHC 33.6 32.3 - 35.7 g/dL [facility] RDW CV 12.5 11.1 - 14.9 % [facility] RDW SD 41.0 35.7 - 48.1 fL [facility] NRBC abs 0.00 0.00 - 0.01 K/cumm [facility] Blood 05/01/2023 10:1 5 AM ELECTRO OPTICS ENGINEER 05/01/2023 10:22 AM ELECTRO OPTICS ENGINEER us Faustino Elias MD LAB BLOOD ORDERABLES Final Result Performing Organization Address City/State/[facility] Co de Phone Number [facility] [place] [address] * (ABNORMAL) Sepsis Lactate w/ Reflex (05/01/2023 10:15 AM ELECTRO OPTICS ENGINEER) Sepsis Lactate 2.7(H) 0.7 - 2.0 mmol/L [facility] Blood 05/01/2023 10:1 5 AM ELECTRO OPTICS ENGINEER 05/01/2023 10:22 AM ELECTRO OPTICS ENGINEER Lisa Christiansen MD LAB BLOOD ORDERABLES Sally l Result Performing Organization Address [facility] Co de Phone Number [facility] [place] [place] [address] * (ABNORMAL) Sepsis Lactate w/ Reflex (05/01/2023 8:13 AM ELECTRO OPTICS ENGINEER) Sepsis Lactate 2.1(H) 0.7 - 2.0 mmol/L [facility] Blood 05/01/2023 8:13 AM ELECTRO OPTICS ENGINEER 05/01/2023 8:25 AM ELECTRO OPTICS ENGINEER Lisa Christiansen MD LAB BLOOD ORDERABLES Sally l Result Performing Organization Address City/[facility] Co de Phone Number [facility] [place] [address] * Check Sample (05/01/2023 8:13 AM ELECTRO OPTICS ENGINEER) ABO Rh A Positive [facility] OTHER 05/01/2023 8:13 AM ELECTRO OPTICS ENGINEER 05/01/2023 8:29 AM ELECTRO OPTICS ENGINEER us Kameron Wadsworth MD LAB BLOOD ORDERABLES Fin al Result Performing Organization Address [facility] Co de Phone Number [facility] Department [place] [address] * Type and screen (05/01/2023 7:52 AM ELECTRO OPTICS ENGINEER) Ellen, indirect Negative ABO Rh A Positive [facility] Blood 05/01/2023 7:52 AM ELECTRO OPTICS ENGINEER 05/01/2023 8:06 AM ELECTRO OPTICS ENGINEER Narrative [facility] - 05/01/2023 8:55 AM ELECTRO OPTICS ENGINEER Has the patient had Daratumumab or Isatuximab in the past 6 months?->Unknown us Faustino Elias MD LAB BLOOD BANK TEST ORDERA BLES Final Result Performing Organization Address [facility] Co de Phone Number [facility] [place] [address] * AL CRITICAL CARE ILL/INJURED PATIENT INIT 30-74 MIN (05/01/2023 7:33 AM ELECTRO OPTICS ENGINEER) Narrative Nagi Landa MD - 05/01/2023 7:33 AM ELECTRO OPTICS ENGINEER Nagi Landa MD ? 05/01/2023 11:34 PM Critical Care Performed by: Nagi Landa MD Authorized by: Kameron Wadsworth MD ?? Critical care provider statement: As [...] and active titration of vasoactive medications ?? I provided emergent necessary critical care [...] and discussed management with the admitting team. us Kameron Wadsworth MD IN CLINIC/BEDSIDE ORDERA BLES Final Result * CT Body Outside Consult (05/01/2023 6:16 AM ELECTRO OPTICS ENGINEER) Anatomical Region Laterality Modality Body N/A Computed Tomogra phy 05/01/2023 6:26 AM ELECTRO OPTICS ENGINEER Impressions 05/01/2023 8:52 AM ELECTRO OPTICS ENGINEER 1. ??Extension of the type B thoracic aortic aneurysm, terminates just above the bifurcation, with origins the left renal artery and celiac artery arising off the false lumen. ??No evidence of vascular compromise. The entry tear is not definitely visualized, it may be just proximal to the diaphragmatic hiatus as this is where contrast within the false lumen is most dense. 2. ??Pseudofeces in the small bowel, without evidence of obstruction. This is of unknown clinical significance and is of uncertain etiology. ??Continued attention on follow-up imaging and correlation with symptomatology is recommended. The findings, conclusions and recommendations within this report do not replace the initial findings, conclusions ??and recommendations made at the facility where the study was performed based upon the imaging and clinical condition at that time. ??Comparison with the prior report and clinical history is necessary. ??The provided images may or may not represent the [place] source data set and thus may contain changes that may lower the accuracy of this second-opinion interpretation. Dictated by: Jr Gallagher MD The radiology attending physician has personally reviewed this study, and had reviewed and/or edited this written report and agrees with it. Electronically signed by: Ruthie Malone M.D. Narrative 05/01/2023 8:52 AM ELECTRO OPTICS ENGINEER EXAMINATION: RADIOLOGY CONSULTATION ON OUTSIDE IMAGING STUDY STUDY INITIALLY PERFORMED: 05/01/2023 at [facility]. TYPE OF STUDY: Multiple CT images of the abdomen pelvis with contrast are provided at the time of this interpretation. CONTRAST ROUTE: Contrast was administered via the intravenous route. The protocol was adequate to address the clinical question. The outside final report was not available at the time of this second opinion interpretation. TYPE OF CONSULTATION: Consult on outside imaging study with images submitted through Outside Image Sharing Service DATE OF CONSULTATION: 05/01/2023 6:19 AM HISTORY: Thoracic aortic dissection COMPARISON: Outside CT of the chest. FINDINGS: Normal heart size. ??No pericardial effusion. ??Lung bases are clear. Normal appearance of the spleen, pancreas, gallbladder, adrenal glands. Hemangioma noted in the liver. ??Numerous hypoattenuating renal lesions are favored to represent cysts but are too small to definitively characterize. ??Multiple punctate nonobstructing renal calculi are seen in both collecting systems. ??No abdominal or pelvic lymphadenopathy. ??The urinary bladder is nondistended. ??The prostate is normal. ??The colon is nondistended. ??The appendix is normal. Mottled material in the distal terminal ileum may represent a component of enteric dysmotility. ??No evidence of obstruction. A partially imaged thoracic aortic dissection terminates above the bifurcation, with the celiac artery, and left renal artery arising off the false lumen. ??Intraluminal evaluation limited by phase of contrast. ??There is no infrarenal abdominal aortic aneurysm. The entry tear may be just proximal to the diaphragmatic hiatus. No suspicious osseous lesion. Procedure Note Ruthie Malone MD - 05/01/2023 EXAMINATION: RADIOLOGY CONSULTATION ON OUTSIDE IMAGING STUDY STUDY INITIALLY PERFORMED: 05/01/2023 at [facility]. TYPE OF STUDY: Multiple CT images of the abdomen pelvis with contrast are provided at the time of this interpretation. CONTRAST ROUTE: Contrast was administered via the intravenous route. The protocol was adequate to address the clinical question. The outside final report was not available at the time of this second opinion interpretation. TYPE OF CONSULTATION: Consult on outside imaging study with images submitted through Outside Image Sharing Service DATE OF CONSULTATION: 05/01/2023 6:19 AM HISTORY: Thoracic aortic dissection COMPARISON: Outside CT of the chest. FINDINGS: Normal heart size. No pericardial effusion. Lung bases are clear. Normal appearance of the spleen, pancreas, gallbladder, adrenal glands. Hemangioma noted in the liver. Numerous hypoattenuating renal lesions are favored to represent cysts but are too small to definitively characterize. Multiple punctate nonobstructing renal calculi are seen in both collecting systems. No abdominal or pelvic lymphadenopathy. The urinary bladder is nondistended. The prostate is normal. The colon is nondistended. The appendix is normal. Mottled material in the distal terminal ileum may represent a component of enteric dysmotility. No evidence of obstruction. A partially imaged thoracic aortic dissection terminates above the bifurcation, with the celiac artery, and left renal artery arising off the false lumen. Intraluminal evaluation limited by phase of contrast. There is no infrarenal abdominal aortic aneurysm. The entry tear may be just proximal to the diaphragmatic hiatus. No suspicious osseous lesion. IMPRESSION: 1. Extension of the type B thoracic aortic aneurysm, terminates just above the bifurcation, with origins the left renal artery and celiac artery arising off the false lumen. No evidence of vascular compromise. The entry tear is not definitely visualized, it may be just proximal to the diaphragmatic hiatus as this is where contrast within the false lumen is most dense. 2. Pseudofeces in the small bowel, without evidence of obstruction. This is of unknown clinical significance and is of uncertain etiology. Continued attention on follow-up imaging and correlation with symptomatology is recommended. The findings, conclusions and recommendations within this report do not replace the initial findings, conclusions and recommendations made at the facility where the study was performed based upon the imaging and clinical condition at that time. Comparison with the prior report and clinical history is necessary. The provided images may or may not represent the [place] source data set and thus may contain changes that may lower the accuracy of this second-opinion interpretation. Dictated by: Jr Gallagher MD The radiology attending physician has personally reviewed this study, and had reviewed and/or edited this written report and agrees with it. Electronically signed by: Ruthie Malone M.D. Nagi Landa MD IMG CT PROCEDURES Sally l Result * XR Outside Reference (05/01/2023 6:05 AM ELECTRO OPTICS ENGINEER) Impressions [facility] - 05/01/2023 6:05 AM ELECTRO OPTICS ENGINEER These images are for Reference purposes only and have not been reviewed by [facility] Radiology. ??There will be no report generated by a [facility] Radiologist. Narrative [facility] - 05/01/2023 6:05 AM ELECTRO OPTICS ENGINEER EXAMINATION: ??Images For Reference Purposes Only Nagi Landa MD IMG XR PROCEDURES Sally l Result [id number] * CT Body Outside Consult (05/01/2023 6:01 AM ELECTRO OPTICS ENGINEER) Anatomical Region Laterality Modality Body N/A Computed Tomogra phy 05/01/2023 6:18 AM ELECTRO OPTICS ENGINEER Impressions 05/01/2023 8:52 AM ELECTRO OPTICS ENGINEER Incompletely imaged Type B aortic dissection, which does not extend beyond the origin of the left subclavian artery. The findings, conclusions and recommendations within this report do not replace the initial findings, conclusions ??and recommendations made at the facility where the study was performed based upon the imaging and clinical condition at that time. ??Comparison with the prior report and clinical history is necessary. ??The provided images may or may not represent the [place] source data set and thus may contain changes that may lower the accuracy of this second-opinion interpretation. Dictated by: Jr Gallagher MD The radiology attending physician has personally reviewed this study, and had reviewed and/or edited this written report and agrees with it. Electronically signed by: Ruthie Malone M.D. Narrative 05/01/2023 8:52 AM ELECTRO OPTICS ENGINEER EXAMINATION: RADIOLOGY CONSULTATION ON OUTSIDE IMAGING STUDY STUDY INITIALLY PERFORMED: 05/01/2023 at [facility]. TYPE OF STUDY: Multiple CT images of the chest with contrast are provided at the time of this interpretation. CONTRAST ROUTE: Contrast was administered via the intravenous route. The protocol was adequate to address the clinical question. The outside final report was not available at the time of this second opinion interpretation. TYPE OF CONSULTATION: Consult on outside imaging study with images submitted through Outside Image Sharing Service DATE OF CONSULTATION: 05/01/2023 6:10 AM HISTORY: Concern for aortic aneurysm/dissection. COMPARISON: None available. FINDINGS: Normal appearance of the imaged thyroid. ??No axillary, supra clavicular mediastinal lymphadenopathy. ??Heart size normal. ??No pericardial effusion. ??There appears to be a tricuspid aortic valve. There is no ascending tubular aortic aneurysm. ??Mediastinal lymph nodes that are calcified are likely sequela level granulomatous disease. ??No pleural effusion. ??No pneumothorax. ??There is mild dependent atelectasis. ??Limited evaluation of the upper abdomen reveals no acute findings in the visceral organs. ??No suspicious osseous lesion. There is a type B aortic dissection, without clear fenestration in the proximal/descending thoracic aorta, with contrast opacification/mixing occurring from likely fenestration below the [id number]. ??The nonopacification of the false lumen may represent a component of thrombosis however this cannot be fully evaluated on this single phase study. ??The descending thoracic aorta measures 3.2 x 3.2 cm in double oblique dimensions, with true lumen measuring 1.3 x 1.3 cm. The celiac artery arises off the false lumen. ??Appear mesenteric artery and right renal artery arise off the true lumen. ??The origin of the left renal artery is not known. Procedure Note Ruthie Malone MD - 05/01/2023 EXAMINATION: RADIOLOGY CONSULTATION ON OUTSIDE IMAGING STUDY STUDY INITIALLY PERFORMED: 05/01/2023 at [facility]. TYPE OF STUDY: Multiple CT images of the chest with contrast are provided at the time of this interpretation. CONTRAST ROUTE: Contrast was administered via the intravenous route. The protocol was adequate to address the clinical question. The outside final report was not available at the time of this second opinion interpretation. TYPE OF CONSULTATION: Consult on outside imaging study with images submitted through Outside Image Sharing Service DATE OF CONSULTATION: 05/01/2023 6:10 AM HISTORY: Concern for aortic aneurysm/dissection. COMPARISON: None available. FINDINGS: Normal appearance of the imaged thyroid. No axillary, supra clavicular mediastinal lymphadenopathy. Heart size normal. No pericardial effusion. There appears to be a tricuspid aortic valve. There is no ascending tubular aortic aneurysm. Mediastinal lymph nodes that are calcified are likely sequela level granulomatous disease. No pleural effusion. No pneumothorax. There is mild dependent atelectasis. Limited evaluation of the upper abdomen reveals no acute findings in the visceral organs. No suspicious osseous lesion. There is a type B aortic dissection, without clear fenestration in the proximal/descending thoracic aorta, with contrast opacification/mixing occurring from likely fenestration below the [id number]. The nonopacification of the false lumen may represent a component of thrombosis however this cannot be fully evaluated on this single phase study. The descending thoracic aorta measures 3.2 x 3.2 cm in double oblique dimensions, with true lumen measuring 1.3 x 1.3 cm. The celiac artery arises off the false lumen. Appear mesenteric artery and right renal artery arise off the true lumen. The origin of the left renal artery is not known. IMPRESSION: Incompletely imaged Type B aortic dissection, which does not extend beyond the origin of the left subclavian artery. The findings, conclusions and recommendations within this report do not replace the initial findings, conclusions and recommendations made at the facility where the study was performed based upon the imaging and clinical condition at that time. Comparison with the prior report and clinical history is necessary. The provided images may or may not represent the [place] source data set and thus may contain changes that may lower the accuracy of this second-opinion interpretation. Dictated by: Jr Gallagher MD The radiology attending physician has personally reviewed this study, and had reviewed and/or edited this written report and agrees with it. Electronically signed by: Ruthie Malone M.D. us Nagi Landa MD IMG CT PROCEDURES Sally l Result * AL ARTL CATHJ/CANNULJ MNTR/TRANSFUSION SPX PRQ (05/01/2023 5:56 AM ELECTRO OPTICS ENGINEER) Narrative Nagi Landa MD - 05/01/2023 5:56 AM ELECTRO OPTICS ENGINEER Meron Monterroso MD ? 05/01/2023 ??7:01 AM Arterial line Date/Time: 05/01/2023 5:56 AM Performed by: Meron Monterroso MD Authorized by: Nagi Landa MD ?? [place] Protocol: ??RN Notified of Procedure: yes ?? Indications: ??Indications: hemodynamic monitoring ?? Pre-procedure details: ??Skin preparation: ??Alcohol and Betadine Procedure details: ??Location: ??L radial ??Needle gauge: ??20 G ??Placement technique: ??Ultrasound guided ??Ultrasound guidance used for: ??Pre-procedure marking ??Number of attempts: ??1 ??Transducer: waveform confirmed ?? Post-procedure details: ??Post-procedure: ??Sterile dressing applied and sutured ??Patient tolerance of procedure: ??Tolerated well, no immediate complications us Nagi Landa MD IN CLINIC/BEDSIDE SHAUNA LOPEZ Final Result * eGFR (05/01/2023 5:19 AM ELECTRO OPTICS ENGINEER) [facility] eGFR 66 >=60 mL/min/1. 73 m2 [facility] Comment: Interpretive Data Reference Interval Normal ?>/= [...] interpretive data was last reviewed 2021. Blood 05/01/2023 5:19 AM ELECTRO OPTICS ENGINEER 05/01/2023 5:31 AM ELECTRO OPTICS ENGINEER Meron Aguilera MD LAB BLOOD ORDERABLES Final Result Performing Organization Address [facility] de Phone Number [facility] Department [place] [address] * Fentanyl Confirmation, Urine (05/01/2023 5:19 AM ELECTRO OPTICS ENGINEER) Fentanyl Conf, Ur Confirmed Positive Cutoff 0.3ng/mL [facility] Acetylfentanyl Conf, Ur Does Not Confirm Cutoff 1 ng/mL [facility] Acrylfentanyl Conf, Ur Does Not Confirm Cutoff 1 ng/mL [facility] Furanylfentanyl Conf, Ur Does Not Confirm Cutoff 1 ng/mL [facility] Fentanyl Metabolite (Norfentanyl) Conf, Ur Confirmed Positive CutOff 5 ng/mL [facility] Xylazine MS Does Not Confirm Cutoff 1 ng/mL [facility] Comment: Interpretive Data This test detects the presence or absence of drug compounds using LC Tandem mass spectrometry and is not intended to assess compliance with prescribed medications. While this test is highly specific, false positive and false negative results may occur in very rare circumstances. Contact the laboratory for consultation, if needed. Performance characteristics were determined by the [facility] in a manner consistent with CLIA requirement and has not been cleared or approved by the U.S. Food and Drug Administration. Current interpretive data was last revised 2020. Urine 05/01/2023 5:19 AM ELECTRO OPTICS ENGINEER 05/01/2023 5:31 AM ELECTRO OPTICS ENGINEER us Meron Aguilera MD LAB URINE ORDERABLES Final Result Performing Organization Address [facility] Co de Phone Number [facility]ON [facility] Department [place] [address] * (ABNORMAL) Urinalysis, microscopic only (05/01/2023 5:19 AM ELECTRO OPTICS ENGINEER) WBC, ur 0-5 0 - 5 /HPF [facility] RBC, ur 21-50(A) 0 - 2 /HPF [facility] Epithelial cells, squamous, ur 1-5 0 - 5 /HPF [facility] Bacteria, ur Trace(A) [facility] Culture Reflex Comment Reflex conditions for urine culture (WBC >10) not met. [facility] Urine 05/01/2023 5:19 AM ELECTRO OPTICS ENGINEER 05/01/2023 5:28 AM ELECTRO OPTICS ENGINEER us Meron Aguilera MD LAB URINE ORDERABLES Final Result [facility] Department [place] [address] * (ABNORMAL) Differential, auto (05/01/2023 5:19 AM ELECTRO OPTICS ENGINEER) Neutrophil abs 17.9(H) 1.7 - 6.5 K/cumm [facility] Imm gran abs 0.3(H) 0.0 - 0.1 K/cumm [facility] Lymphocyte abs 1.0 0.8 - 3.3 K/cumm [facility] Monocyte abs 1.4(H) 0.2 - 0.8 K/cumm [facility] Eosinophil abs 0.0 0.0 - 0.5 K/cumm [facility] Basophil abs 0.1 0.0 - 0.1 K/cumm [facility] Neutrophil pct 86.9 % [facility] Comment: Interpretive Data Percent cell count reference ranges are not reported, since discordance with absolute values may lead to misinterpretation of CBC data. Current Interpretive Data was last revised on 2017. Imm gran pct 1.4 % [facility] Comment: Interpretive Data Percent cell count reference ranges are not reported, since discordance with absolute values may lead to misinterpretation of CBC data. Current Interpretive Data was last revised on 2017. Lymphocyte pct 4.7 % [facility] Comment: Interpretive Data Percent cell count reference ranges are not reported, since discordance with absolute values may lead to misinterpretation of CBC data. Current Interpretive Data was last revised on 2017. Monocyte pct 6.7 % [facility] Comment: Interpretive Data Percent cell count reference ranges are not reported, since discordance with absolute values may lead to misinterpretation of CBC data. Current Interpretive Data was last revised on 2017. Eosinophil pct 0.0 % [facility] Comment: Interpretive Data Percent cell count reference ranges are not reported, since discordance with absolute values may lead to misinterpretation of CBC data. Current Interpretive Data was last revised on 2017. Basophil pct 0.3 % [facility] Comment: Interpretive Data Percent cell count reference ranges are not reported, since discordance with absolute values may lead to misinterpretation of CBC data. Current Interpretive Data was last revised on 2017. Blood 05/01/2023 5:19 AM ELECTRO OPTICS ENGINEER 05/01/2023 5:31 AM ELECTRO OPTICS ENGINEER us Meron Aguilera MD LAB BLOOD ORDERABLES Final Result [facility] Department [place] [address] * (ABNORMAL) Drugs of Abuse Screen, Urine with Reflex Confirmation (05/01/2023 5:19 AM ELECTRO OPTICS ENGINEER) Amphetamine, ur Not Detected CutOff 500ng/mL [facility] Comment: Interpretive Data - Amphetamines: ??Samples containing greater than 500 ng/mL d-methamphetamine ??or other cross-reacting amphetamine compounds are reported as positive. ??Amphetamine immunoassays are subject to significant false positive rates due to cross-reactivity of non-amphetamine drugs. Confirmatory testing required for definitive results. Current Interpretive Data was last reviewed 2022. Barbiturates, ur Not Detected CutOff 200ng/mL [facility] Comment: Interpretive Data - Barbiturates: ??Samples containing greater than 200 ng/mL secobarbital or other cross-reacting barbiturate compounds are reported as positive. ??False positive and false negative results are possible. Confirmatory testing required for definitive results. Current Interpretive Data was last reviewed 2022. Benzodiazepines, ur Not Detected CutOff 100ng/mL [facility] Comment: Interpretive Data - Benzodiazepines: ??Samples containing greater than 100 ng/mL nordiazepam or other cross-reacting compounds are reported as positive. False positive and false negative results are possible. Confirmatory testing required for definitive results. Current Interpretive Data was last reviewed 2022. Cannabinoids, ur Screen Positive, presumptive (A) CutOff 50 ng/mL [facility] Comment: Interpretive Data - Cannabinoids: ??Samples containing greater than 50 ng/mL delta-9 THC -COOH or other cross-reacting compounds are reported as positive. ??False positive and false negative results are possible. ??Confirmatory testing required for definitive results. Current Interpretive Data was last reviewed 2022. Cocaine, ur Not Detected CutOff 150ng/mL [facility] Comment: Interpretive Data - Cocaine: ??Samples containing greater than 150 ng/mL benzoylecgonine or other cross-reacting compounds are reported as positive. False positive and false negative results are possible. Confirmatory testing required for definitive results. Current Interpretive Data was last reviewed 2022. Fentanyl, Ur Screen Positive, presumptive (A) Cutoff 1 ng/mL [facility] Comment: Interpretive Data - Fentanyl: ??Samples containing greater than 1 ng/mL fentanyl or other cross-reacting fentanyl compounds are reported as positive. ??False positive and false negative results are possible. Confirmatory testing required for definitive results. Current Interpretive Data was last reviewed 2022. Methadone, ur Not Detected CutOff 300ng/mL [facility] Comment: Interpretive Data - Methadone: ??Samples containing greater than 300 ng/mL d,l-methadone or other cross-reacting compounds are reported as positive. ??False positive and false negative results are possible. Confirmatory testing required for definitive results. Current Interpretive Data was last reviewed 2022. Opiates, ur Not Detected CutOff 300ng/mL [facility] Comment: Interpretive Data - Opiates: ??Samples containing greater than 300 ng/mL morphine or other cross-reacting compounds are reported as positive. ??False positive and false negative results are possible. Confirmatory testing required for definitive results. Current Interpretive Data was last reviewed 2022. Oxycodone, ur Not Detected CutOff 100ng/mL [facility] Comment: Interpretive Data - Oxycodone: ??Samples containing greater than 100 ng/mL oxycodone or other cross-reacting compounds are reported as ??positive. ??False positive and false negative results are possible. Confirmatory testing required for definitive results. Current Interpretive Data was last reviewed 2022. Phencyclidine, ur Not Detected CutOff 25 ng/mL [facility] Comment: Interpretive Data - Phencyclidine: ??Samples containing greater than 25 ng/mL phencyclidine or other cross-reacting compounds are reported as positive. ??False positive and false negative results are possible. Confirmatory testing required for definitive results. Current Interpretive Data was last reviewed 2022. Urine Creatinine 88 mg/dL [facility] Comment: Interpretive Data Urine Creatinine: < 10 mg/dL is extremely dilute = or > 10 but < 20 mg/dL is dilute = or > 20 mg/dL is normal Current Interpretive Data was last revised on 2017. Urine 05/01/2023 5:19 AM ELECTRO OPTICS ENGINEER 05/01/2023 5:31 AM ELECTRO OPTICS ENGINEER Narrative [facility] - 05/01/2023 6:34 AM ELECTRO OPTICS ENGINEER Drug of Abuse screening is performed by immunoassay for medical purposes only. ??This is not to be used for Pain Management purposes. ??If Detected, confirmation testing will be performed for Amphetamines, Cocaine, Fentanyl, Methadone, Opiates, Oxycodone or Phencyclidine. Meron Aguilera MD LAB URINE ORDERABLES Final Result [facility] Department [place] [address] * (ABNORMAL) Urinalysis reflex to microscopic and culture Urine (05/01/2023 5:19 AM ELECTRO OPTICS ENGINEER) Color, ur Straw Yellow [facility] Clarity, ur Clear Clear [facility] Specific gravity, ur >1.042(H) 1.003 - 1.030 [facility] pH, urine 6.5 [facility] Comment: Interpretive Data ? Urine pH is affected by diet, medications, systemic acid-base disturbances, and renal tubular function. ??pH may affect urinary stone formation. ??For example, urine pH below 6.0 may help reduce the tendency for calcium phosphate stones and pH greater than 6.0 may reduce the tendency for uric acid stone formation. Source: [facility] Current Interpretive Data was last revised on 2017 Protein, ur ql 1+(A) Negative [facility] Glucose, ur ql Trace(A) Negative [facility] Ketones, ur Negative Negative [facility] Bilirubin, ur Negative Negative [facility] Blood, ur 1+(A) Negative [facility] Urobilinogen, ur <2.0 <2.0 mg/dL [facility] Nitrite, ur Negative Negative [facility] Leukocyte esterase, ur Negative Negative [facility] UA reflex comment Reflex to microscopic UA will be performed. [facility] Urine 05/01/2023 5:19 AM ELECTRO OPTICS ENGINEER 05/01/2023 5:28 AM ELECTRO OPTICS ENGINEER Meron Aguilera MD LAB MICROBIOLOGY - GENERAL ORDERABLES Final Result Performing Organization Address [facility] de Phone Number [facility] [place] [place] [address] * aPTT (05/01/2023 5:19 AM ELECTRO OPTICS ENGINEER) aPTT 34 28 - 38 sec [facility] Comment: Interpretive Data Heparin therapeutic range: 66.0 - 100.0 seconds. Range based on correlation with therapeutic heparin activity range of 0.3 - 0.7 Units/mL. Current interpretive data was last revised on 2023. Blood 05/01/2023 5:19 AM ELECTRO OPTICS ENGINEER 05/01/2023 5:30 AM ELECTRO OPTICS ENGINEER Meron Aguilera MD LAB BLOOD ORDERABLES Final Result Performing Organization Address [facility] Co de Phone Number [facility] [place] [address] * Protime-INR (05/01/2023 5:19 AM ELECTRO OPTICS ENGINEER) PT 13.7 10.3 - 13.7 sec [facility] INR 1.20 0.90 - 1.20 [facility] Comment: Interpretive data Oral anticoagulant therapeutic ranges: Venous thromboembolism prophylaxis or treatment: 2.0-3.0 CARDIOLOGY Standard range: 2.0-3.0 High-intensity range: 2.5-3.5 Refer to indication-specific guidelines for appropriate target ranges for prosthetic heart valve replacement. Current interpretive data was last revised on 2019. Blood 05/01/2023 5:19 AM ELECTRO OPTICS ENGINEER 05/01/2023 5:30 AM ELECTRO OPTICS ENGINEER us Meron Aguilera MD LAB BLOOD ORDERABLES Final Result [facility] Department [place] [address] * (ABNORMAL) Comprehensive metabolic panel (05/01/2023 5:19 AM ELECTRO OPTICS ENGINEER) Sodium 140 135 - 145 mmol/L [facility] Potassium, pl 4.1 3.3 - 4.9 mmol/L [facility] Chloride 103 97 - 110 mmol/L [facility] CO2 26 22 - 32 mmol/L [facility] Anion gap 11 2 - 15 mmol/L [facility] BUN 20 6 - 25 mg/dL [facility] Creatinine 1.46(H) 0.80 - 1.30 mg/dL [facility] Glucose 137 70 - 199 mg/dL [facility] Comment: Interpretive Data Fasting glucose >/= [...] 2022. Calcium 9.0 8.5 - 10.3 mg/dL [facility] Bilirubin, total 0.8 0.1 - 1.2 mg/dL [facility] Protein, pl 7.4 6.5 - 8.5 g/dL [facility] Albumin 4.6 3.5 - 5.0 g/dL [facility] Alk phos 90 40 - 130 Units/L [facility] ALT 20 7 - 55 Units/L [facility] AST 21 10 - 50 Units/L [facility] Blood 05/01/2023 5:19 AM ELECTRO OPTICS ENGINEER 05/01/2023 5:31 AM ELECTRO OPTICS ENGINEER us Meron Aguilera MD LAB BLOOD ORDERABLES Final Result [facility] Department [place] [address] * (ABNORMAL) CBC with auto differential (05/01/2023 5:19 AM ELECTRO OPTICS ENGINEER) WBC 20.6(H) 3.8 - 9.9 K/cumm [facility] Hgb 13.6 13.0 - 17.5 g/dL [facility] Comment: Interpretive Data A reference range for this assay has not been established for patients with an unknown legal sex. Please refer to the laboratory test catalog for established sex-specific reference intervals. Current interpretive data was last revised on 2023. Hct 39.4 38.9 - 50.3 % [facility] Comment: Interpretive Data A reference range for this assay has not been established for patients with an unknown legal sex. Please refer to the laboratory test catalog for established sex-specific reference intervals. Current interpretive data was last revised on 2023. Plt 165 150 - 400 K/cumm [facility] MPV 8.8(L) 9.1 - 12.3 fL [facility] RBC 4.45 4.30 - 5.80 M/cumm [facility] Comment: Interpretive Data A reference range for this assay has not been established for patients with an unknown legal sex. Please refer to the laboratory test catalog for established sex-specific reference intervals. Current interpretive data was last revised on 2023. MCV 88.5 81.3 - 96.4 fL [facility] MCH 30.6 27.1 - 33.3 pg [facility] MCHC 34.5 32.3 - 35.7 g/dL [facility] RDW CV 12.4 11.1 - 14.9 % [facility] RDW SD 40.4 35.7 - 48.1 fL [facility] NRBC abs 0.00 0.00 - 0.01 K/cumm [facility] Blood 05/01/2023 5:19 AM ELECTRO OPTICS ENGINEER 05/01/2023 5:31 AM ELECTRO OPTICS ENGINEER Meron Aguilera MD LAB BLOOD ORDERABLES Final Result [facility] Department [place] [address] * (ABNORMAL) ECG 12 lead (05/01/2023 5:15 AM ELECTRO OPTICS ENGINEER) Narrative [facility] - 05/01/2023 5:15 AM ELECTRO OPTICS ENGINEER Meron Monterroso MD ? 05/01/2023 ??5:16 AM ECG 12 lead Date/Time: 05/01/2023 5:15 AM Performed by: Meron Monterroso MD Authorized by: Meron Monterroso MD ?? Rate: ??ECG rate: ??80 ??ECG rate assessment: normal ?? Rhythm: ??Rhythm: sinus rhythm ?? Ectopy: ??Ectopy: none ?? QRS: ??QRS axis: ??Normal Conduction: ??Conduction: normal ?? ST segments: ??ST segments: ??Abnormal ??Elevation: ??V1 and V2 T waves: ??T waves: inverted ?Inverted: ??V3, V4, V5 and V6 Other findings: ??Other findings: LVH ?? Previous ECG: ??Previous ECG: ??Unavailable Interpretation: ??Interpretation: abnormal ?? Recommended Follow-up: ??Recommended follow up: cardiac workup ?? Procedure Note Meron Monterroso MD - 05/01/2023 5:15 AM CST Procedure ECG 12 lead Date/Time: 05/01/2023 5:15 AM Performed by: Meron Monterroso MD Authorized by: Meron Monterroso MD Rate: ECG rate: 80 ECG rate assessment: normal Rhythm: Rhythm: sinus rhythm Ectopy: Ectopy: none QRS: QRS axis: Normal Conduction: Conduction: normal ST segments: ST segments: Abnormal Elevation: V1 and V2 T waves: T waves: inverted Inverted: V3, V4, V5 and V6 Other findings: Other findings: LVH Previous ECG: Previous ECG: Unavailable Interpretation: Interpretation: abnormal Recommended Follow-up: Recommended follow up: cardiac workup Meron Monterroso MD Resident 05/01/23 0516 us Meron Aguilera MD ECG ORDERABLES Final Resu lt [facility] * XR Chest 1 View (05/01/2023 5:14 AM ELECTRO OPTICS ENGINEER) Anatomical Region Laterality Modality Body, Chest N/A Computed Radiogr aphy 05/01/2023 5:18 AM ELECTRO OPTICS ENGINEER Impressions 05/01/2023 8:36 AM ELECTRO OPTICS ENGINEER No prior imaging available for comparison. ??Single view chest: Cardiac contours likely exaggerated by imaging technique. ??No pleural effusion. ??No pneumothorax. ??Mild bibasilar atelectasis. Dictated by: Jr Gallagher MD The radiology attending physician has personally reviewed this study, and had reviewed and/or edited this written report and agrees with it. Electronically signed by: Ruthie Malone M.D. [facility] 05/01/2023 8:36 AM ELECTRO OPTICS ENGINEER EXAMINATION: 1 view chest radiograph Procedure Note Ruthie Malone MD - 05/01/2023 EXAMINATION: 1 view chest radiograph IMPRESSION: No prior imaging available for comparison. Single view chest: Cardiac contours likely exaggerated by imaging technique. No pleural effusion. No pneumothorax. Mild bibasilar atelectasis. Dictated by: Jr Gallagher MD The radiology attending physician has personally reviewed this study, and had reviewed and/or edited this written report and agrees with it. Electronically signed by: Ruthie Malone M.D. us Meron Aguilera MD IMG XR PROCEDURES Final Re sult documented in this encounter Visit Diagnoses Diagnosis Dissection of aorta, unspecified portion of aorta (HCC)- Primary Dissection of aorta, unspecified portion of aorta (HCC) Hypertension, unspecified type Class 1 obesity with body mass index (BMI) of 30.0 to 30.9 in adult, unspecified obesity type, unspecified whether serious comorbidity present Dissection of thoracoabdominal aorta (CMS/HCC) (HCC) Urinary retention Unspecified retention of urine Dissection of thoracoabdominal aorta (CMS/HCC) (HCC) Epistaxis Pneumonia Pneumonia, organism unspecified HTN (hypertension) Unspecified essential hypertension Urinary retention Unspecified retention of urine Dissection of thoracoabdominal aorta (CMS/HCC) (HCC) documented in this encounter Admitting Diagnoses Diagnosis Dissection of aorta, unspecified portion of aorta (HCC) Dissection of thoracoabdominal aorta (CMS/HCC) (HCC) documented in this encounter Administered Medications Inactive Administered Medications - up to 3 most recent administrations Medication Order MAR Action Action Date Dose Rate Site acetaminophen (TYLENOL) tablet 1,000 mg 1,000 mg, oral, Every 6 hours scheduled, First dose on 05/01/23 at 1200 Given 05/02/2023 12:25 PM ELECTRO OPTICS ENGINEER 1,000 mg Given 05/02/2023 5:07 AM ELECTRO OPTICS ENGINEER 1,000 mg Given 05/01/2023 5:19 PM ELECTRO OPTICS ENGINEER 1,000 mg acetaminophen (TYLENOL) tablet 1,000 mg 1,000 mg, feeding tube, Every 6 hours scheduled, First dose on 05/03/23 at 1200 Given 05/05/2023 12:15 PM ELECTRO OPTICS ENGINEER 1,000 mg Given 05/05/2023 5:11 AM ELECTRO OPTICS ENGINEER 1,000 mg Given 05/04/2023 11:00 PM ELECTRO OPTICS ENGINEER 1,000 mg acetaminophen (TYLENOL) tablet 1,000 mg 1,000 mg, oral, Every 6 hours scheduled, First dose (after last modification) on Catarina 05/05/23 at 1800 Given 05/16/2023 12:08 PM ELECTRO OPTICS ENGINEER 1,000 mg Given 05/16/2023 6:19 AM ELECTRO OPTICS ENGINEER 1,000 mg Given 05/16/2023 12:16 AM ELECTRO OPTICS ENGINEER 1,000 mg acetaZOLAMIDE (DIAMOX) tablet 500 mg 500 mg, oral, Once, On 05/07/23 at 1045, For 1 dose Given 05/07/2023 10:30 AM ELECTRO OPTICS ENGINEER 500 mg acetaZOLAMIDE (DIAMOX) tablet 500 mg 500 mg, oral, Once, On 05/07/23 at 1800, For 1 dose Given 05/07/2023 6:18 PM ELECTRO OPTICS ENGINEER 500 mg albumin 5 % bottle - ADS Override Pull Starting on Tue05/08/23 at 2314, For 1 dose, Created by cabinet override albumin 5 % bottle 25 g 25 g, intravenous, Once, On 05/09/23 at 0000, For 1 dose, Infusion rate depends on indication and clinical situation. Suggested initial rate - 120 mL/hr. 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) Given 05/08/2023 11:32 PM ELECTRO OPTICS ENGINEER 25 g albuterol HFA (PROVENTIL HFA,VENTOLIN HFA,PROAIR HFA) 90 mcg/actuation inhaler - ADS Override Pull Starting on Tue05/02/23 at 2129, For 1 dose, Created by cabinet override albuterol HFA (PROVENTIL HFA,VENTOLIN HFA,PROAIR HFA) 90 mcg/actuation inhaler 2 puff 2 puff, inhalation, Every 4 hours PRN (incident response coordinator), wheezing, Starting on Catarina 05/05/23 at 1249 albuterol HFA (PROVENTIL HFA,VENTOLIN HFA,PROAIR HFA) 90 mcg/actuation inhaler 8 puff 8 puff, inhalation, Every 4 hours (incident response coordinator), First dose on Tue05/02/23 at 2245 Given 05/05/2023 11:08 AM ELECTRO [employer] ENGINEER 2 puffs Given 05/05/2023 8:14 AM [employer] ENGINEER 8 puffs Given 05/05/2023 4:00 AM [employer] ENGINEER 8 puffs ALPRAZolam (XANAX) tablet 0.5 mg 0.5 mg, oral, Once, On Catarina 05/05/23 at 1430, For 1 dose Given 05/05/2023 2:06 PM [employer] ENGINEER 0.5 mg ALPRAZolam (XANAX) tablet 0.5 mg 0.5 mg, oral, Once, On Cat[place]ina 05/05/23 at 1700, For 1 dose Given 05/05/2023 4:31 PM [employer] ENGINEER 0.5 mg aspirin chewable tablet 81 mg 81 mg, feeding tube, Daily, First dose on Tue05/03/23 at 1000 Given 05/05/2023 8:48 AM [employer]INEER 81 mg Given 05/04/2023 8:07 AM [employer] ENGINEER 81 mg Given 05/03/2023 9:48 AM [employer] ENGINEER 81 mg aspirin chewable tablet 81 mg 81 mg, oral, Daily, First dose (after last modification) on Tue05/06/23 at 0900 Given 05/16/2023 9:31 AM [employer]INEER 81 mg Given 05/15/2023 8:52 AM E[employer] ENGINEER 81 mg Given 05/14/2023 8:23 AM E[employer] ENGINEER 81 mg bumetanide (BUMEX) 0.25 mg/mL injection 2 mg 2 mg, intravenous, Administer over 1 Minutes, Every 6 hours scheduled, First dose on Tue05/03/23 at 1900 Given 05/04/2023 5:22 AM [employer]RO [employer] ENGINEER 2 mg Given 05/03/2023 11:34 PM [employer] ENGINEER 2 mg Given 05/03/2023 7:49 PM [employer]RO [employer] ENGINEER 2 mg bumetanide (BUMEX) 0.25 mg/mL injection 2 mg 2 mg, intravenous, Administer over 1 Minutes, Every 6 hours, First dose on Tue05/04/23 at 1200 Given 05/05/2023 5:11 AM [employer] ENGINEER 2 mg Given 05/04/2023 11:00 PM [employer] ENGINEER 2 mg Given 05/04/2023 5:43 PM E[employer] ENGINEER 2 mg bumetanide (BUMEX) 0.25 mg/mL injection 2 mg 2 mg, intravenous, Administer over 1 Minutes, Every 6 hours scheduled, First dose on Tue05/05/23 at 1345 Given 05/06/2023 5:42 AM [employer]RO [employer] ENGINEER 2 mg Given 05/06/2023 1:07 AM E[employer]RO [employer] ENGINEER 2 mg Given 05/05/2023 5:10 PM E[employer] ENGINEER 2 mg bumetanide (BUMEX) 0.25 mg/mL injection 2 mg 2 mg, intravenous, Administer over 1 Minutes, Every 6 hours scheduled, First dose on Tue05/06/23 at 0700 Given 05/06/2023 12:10 PM [employer] ENGINEER 2 mg calcium chloride IV syringe 1 g 1 g, intravenous, Once, On e 05/03/23 at 0015, For 1 dose, Central line preferred, Indications: hypocalcemiaIndications:hypocalcemia Given 05/03/2023 12:15 AM E[employer]RO [employer] ENGINEER 1 g calcium chloride IV syringe 1 g 1 g, intravenous, Once, On 05/07/23 at 1300, For 1 dose, Central line preferred, Indications: hypocalcemiaIndications:hypocalcemia Given 05/07/2023 2:13 PM E[employer] ENGINEER 1 g calcium gluconate 1 g/50 mL in sodium chloride (premix) solution 1 g 1 g, intravenous, Administer over 60 Minutes, Once, On 05/04/23 at 0745, For 1 dose, Room temperature only, Indications: hypocalcemiaIndications:hypocalcemia New Bag 05/04/2023 7:51 AM E[employer]ER 1 g calcium gluconate 2 g/100 mL in sodium chloride (premix) solution 2 g 2 g, intravenous, Administer over 60 Minutes, Once, On Catarina 05/05/23 at 2000, For 1 dose, Room temperature only, Indications: hypocalcemiaIndications:hypocalcemia New Bag 05/05/2023 7:33 PM [employer]ER 2 g camphor-menthoL (SARNA) 0.5-0.5 % lotion topical, Every 6 hours PRN, itching, Starting on 05/08/23 at 0435, Apply to affected area: other Given 05/08/2023 5:35 AM E[employer]RO [employer] ENGINEER Carrier Fluids for Secondary Infusion - 0.9% Sodium Chloride 30 mL, intravenous, As needed, For priming tubing and/or flushing, Starting on 05/01/23 at 1038, 0-250 ml/hr to flush line after IV infusions when no maintenance IV ordered. Infuse 30mL at the same rate as the secondary infusion. Run as primary IV, not intended for KVO. Given 05/06/2023 8:27 AM E[employer]INEER 30 mL Given 05/02/2023 11:45 PM E[employer] ENGINEER 30 mL Carrier Fluids for Secondary Infusion - 0.9% Sodium Chloride 30 mL, intravenous, As needed, For priming tubing and/or flushing, Starting on 05/02/23 at 2126, 0-250ml/hr to flush line after IV infusions when no maintenance IV ordered. Infuse 30mL at the same rate as the secondary infusion. Run as primary IV, not intended for KVO Given 05/03/2023 8:55 AM [employer] ENGINEER 30 mL carvediloL (COREG) tablet 12.5 mg 12.5 mg, oral, 2 times daily with meals (bkfst, dinner), First dose (after last modification) on Tue05/01/23 at 1800 Given 05/02/2023 7:26 AM [employer] 12.5 mg Given 05/01/2023 5:18 PM [employer] ENGINEER 12.5 mg carvediloL (COREG) tablet 12.5 mg 12.5 mg, oral, Once, On Tue05/01/23 at 2230, For 1 dose Given 05/01/2023 10:01 PM [employer] ENGINEER 12.5 mg carvediloL (COREG) tablet 12.5 mg 12.5 mg, oral, Once, On Tue05/02/23 at 0915, For 1 dose Given 05/02/2023 8:38 AM E[employer] ENGINEER 12.5 mg carvediloL (COREG) tablet 12.5 mg 12.5 mg, oral, 2 times daily, First dose on Tue05/11/23 at 0930 Given 2023 9:03 AM [employer] 12.5 mg carvediloL (COREG) tablet 12.5 mg 12.5 mg, oral, 2 times daily, First dose (after last modification) on Tue05/13/23 at 0900 Given 05/16/2023 9:31 AM [employer] 12.5 mg Given 05/15/2023 9:17 PM [employer] ENGINEER 12.5 mg Given 05/15/2023 8:53 AM E[employer] ENGINEER 12.5 mg carvediloL (COREG) tablet 25 mg 25 mg, oral, 2 times daily with meals (bkfst, dinner), First dose (after last modification) on Tue05/02/23 at 1800 Given 05/03/2023 7:39 AM [employer] 25 mg carvediloL (COREG) tablet 25 mg 25 mg, feeding tube, Once, On Tue05/03/23 at 1000, For 1 dose Given 05/03/2023 9:48 AM [employer]INEER 25 mg carvediloL (COREG) tablet 25 mg 25 mg, oral, 2 times daily, First dose (after last modification) on Tue05/11/23 at 2100 Given 05/12/2023 8:15 PM [employer] ENGINEER 2 5 mg Given 05/12/2023 7:26 AM [employer] ENGINEER 25 mg Given 2023 8:48 PM [employer] ENGINEER 25 mg carvediloL (COREG) tablet 50 mg 50 mg, feeding tube, 2 times daily, First dose (after last modification) on Tue05/03/23 at 2100 Given 05/05/2023 8:51 AM [employer] ENGINEER 50 mg Given 05/04/2023 8:04 PM [employer] ENGINEER 50 mg Given 05/04/2023 8:07 AM E[employer] ENGINEER 50 mg carvediloL (COREG) tablet 6.25 mg 6.25 mg, oral, 2 times daily with meals (bkfst, dinner), First dose on Tue05/01/23 at 1230 Given 05/01/2023 12:26 PM [employer] ENGINEER 6.25 mg ceFAZolin (ANCEF) 2,000 mg/20 mL in sterile water (premix) 2,000 mg 2,000 mg, intravenous, at 400 mL/hr, Administer over 3 Minutes, Every 8 hours, First dose on Tue05/03/23 at 0100, For 3 doses, Start 8 hours after last jie-operative dose., Indications: Prophylaxis, SurgicalIndications:Prophylaxis, Surgical Given 05/03/2023 5:36 PM [employer] ENGINEER 2,000 mg 400 mL/hr Given 05/03/2023 8:49 AM E[employer] ENGINEER 2,000 mg 400 mL/hr Given 05/03/2023 1:10 AM E[employer] ENGINEER 2,000 mg 400 mL/hr chlorhexidine (PERIDEX) 0.12 % solution 15 mL 15 mL, swish & spit, 2 times daily, First dose on Tue05/03/23 at 1000, Can dc once extubated Given 05/05/2023 9:0 2 PM [employer]RO [employer]INEER 15 mL Given 05/05/2023 8:49 AM E[employer] ENGINEER 15 mL Given 05/04/2023 8:04 PM [employer] ENGINEER 15 mL clevidipine (CLEVIPREX) 50 mg/100 mL (0.5 mg/mL) (premix) 0-32 mg/hr (0-64 mL/hr), 0.5 mg/mL, intravenous, Titrated, Starting on Tue05/01/23 at 1215, Until Tue05/03/23 at 1752, Initial rate: 1 mg/hr, Titrate: Up/Down, Titrate by: 1 mg/hr, Every: 2 minutes, Goal: SBP, SBP Goal: Other (comment) / SBP <100, Vial only stable 12 hours after entry. Replace with new vial every 12 hours., Routine Rate/Dose Verify 05/03/2023 5:00 PM [employer]INEER 24 mg/hr 48 mL/hr New Bag 05/03/2023 4:58 PM [employer] ENGINEER 24 mg/hr 48 mL/hr Rate/Dose Verify 05/03/2023 4:00 PM [employer] ENGINEER 24 mg/hr 48 mL/h r clevidipine (CLEVIPREX) 50 mg/100 mL (0.5 mg/mL) (premix) 0-32 mg/hr (0-64 mL/hr), 0.5 mg/mL, intravenous, Titrated, Starting on 05/03/23 at 1830, Until Catarina 05/05/23 at 1936, Initial rate: 1 mg/hr, Titrate: Up/Down, Titrate by: 1 mg/hr, Every: 2 minutes, Goal: SBP, SBP Goal: Other (comment) / SBP 100-120, Vial only stable 12 hours after entry. Replace with new vial every 12 hours., Routine Rate/Dose Verify 05/05/2023 7:00 PM [employer]INEER 32 mg/hr 64 mL/hr New Bag 05/05/2023 6:35 PM [employer] ENGINEER 32 mg/hr 64 mL/hr Rate/Dose Verify 05/05/2023 6:00 PM [employer] ENGINEER 32 mg/hr 64 mL/h r clevidipine (CLEVIPREX) 50 mg/100 mL (0.5 mg/mL) (premix) 0-32 mg/hr (0-64 mL/hr), 0.5 mg/mL, intravenous, Titrated, Starting on Catarina 05/05/23 at 2015, Until 05/07/23 at 0238, Initial rate: 1 mg/hr, Titrate: Up/Down, Titrate by: 1 mg/hr, Every: 2 minutes, Goal: SBP, SBP Goal: Other (comment) / 140-160, Vial only stable 12 hours after entry. Replace with new vial every 12 hours., Routine Rate/Dose Verify 05/07/2023 2:00 AM E[employer] ENGINEER 3 mg/hr 6 mL/hr Rate/Dose Verify 05/07/2023 1:00 AM E[employer] ENGINEER 3 mg/hr 6 mL/hr Rate/Dose Change 05/07/2023 12:25 AM E[employer] ENGINEER 3 mg/hr 6 mL/h r clevidipine (CLEVIPREX) 50 mg/100 mL (0.5 mg/mL) (premix) 0-32 mg/hr (0-64 mL/hr), 0.5 mg/mL, intravenous, Titrated, Starting on Tue05/07/23 at 0315, Until Tue05/09/23 at 0439, Initial rate: 1 mg/hr, Titrate: Up/Down, Titrate by: 1 mg/hr, Every: 2 minutes, Goal: MAP, MAP Goal: Other (comment) / MAP >100, SBP <180, Vial only stable 12 hours after entry. Replace with new vial every 12 hours., Routine Rate/Dose Change 05/09/2023 4:54 AM [employer]INEER 5 mg/hr 10 mL/hr Rate/Dose Change 05/09/2023 4:48 AM [employer] ENGINEER 10 mg/hr 20 mL/h r Rate/Dose Change 05/09/2023 4:45 AM [employer] ENGINEER 12 mg/hr 24 mL/h r cyclobenzaprine (FLEXERIL) tablet 10 mg 10 mg, oral, 3 times daily PRN, muscle spasms, Starting on Tue05/02/23 at 0337 Given 05/02/2023 12:25 PM [employer] ENGINEER 10 mg Given 05/02/2023 3:42 AM [employer] ENGINEER 10 mg dexmedeTOMIDine in 0.9% sodium chloride (PRECEDEX) 400 mcg/100 mL (4 mcg/mL) infusion (premix) 0-1.5 mcg/kg/hr ? 107.5 kg (0-40.3125 mL/hr, rounded to 0-40.31 mL/hr), 4 mcg/mL, intravenous, Titrated, Starting on Tue05/03/23 at 0815, Until Tue05/09/23 at 0226, Titration instructions: Titrate, Initial dose: 0.2 mcg/kg/hr, Titrate: Up/Down, Titrate by: 0.1 mcg/kg/hr, Every: 30 minutes, Goal: RASS, RASS Goal: 0, -1, -2, Routine Rate/Dose Change 05/08/2023 6:00 PM [employer]ER 0.2 mcg/kg/hr 5.38 mL/hr Rate/Dose Change 05/08/2023 5:30 PM [employer]INEER 0.5 mcg/kg/hr 13.4 4 mL/hr New Bag 05/08/2023 5:26 PM [employer]INEER 0.8 mcg/kg/hr 21.5 mL/hr dilTIAZem (CARDIZEM) injection 10 mg 10 mg, intravenous, Administer over 2 Minutes, Once, On Tue05/04/23 at 1800, For 1 dose, Refrigerate Given 05/04/2023 5:43 PM [employer]INEER 10 mg dilTIAZem (CARDIZEM) injection 10 mg 10 mg, intravenous, Administer over 2 Minutes, 3 times daily PRN, for sBP >130 or MAP >85, Starting on Tue05/04/23 at 2009, Refrigerate Given 05/04/2023 9:10 PM [employer]INEER 10 mg dilTIAZem (CARDIZEM) injection 15 mg 15 mg, intravenous, Administer over 2 Minutes, Every 8 hours, First dose on [facility] 05/05/23 at 1345, Refrigerate Given 05/05/2023 1:15 PM [employer] ENGINEER 15 mg dilTIAZem (CARDIZEM) injection 15 mg 15 mg, intravenous, Administer over 2 Minutes, Once, On [facility] 05/05/23 at 1415, For 1 dose, Refrigerate Given 05/05/2023 1:35 PM [employer]INEER 15 mg dilTIAZem (CARDIZEM) injection 15 mg 15 mg, intravenous, Administer over 2 Minutes, Once, On [facility] 05/05/23 at 1745, For 1 dose, Refrigerate Given 05/05/2023 5:00 PM [employer] ENGINEER 15 mg dilTIAZem (CARDIZEM) injection 5 mg 5 mg, intravenous, Administer over 2 Minutes, Once, On Tue05/02/23 at 0200, For 1 dose, Refrigerate Given 05/02/2023 1:33 AM E[employer] ENGINEER 5 mg dilTIAZem (CARDIZEM) injection 5 mg 5 mg, intravenous, Administer over 2 Minutes, Every 15 min PRN, For SBP >115, Starting on Tue05/02/23 at 0156, Refrigerate Given 05/03/2023 5:01 AM [employer] ENGINEER 5 mg Given 05/03/2023 4:15 AM E[employer] ENGINEER 5 mg Given 05/02/2023 8:11 AM E[employer] ENGINEER 5 mg docusate (COLACE) 10 mg/mL oral liquid 100 mg 100 mg, feeding tube, 2 times daily, First dose on 05/02/23 at 2215, Hold for diarrhea., Indications: constipationIndications:constipation Given 05/05/2023 8:49 AM [employer] ENGINEER 100 mg Given 05/04/2023 8:04 PM [employer] ENGINEER 100 mg Given 05/04/2023 8:07 AM E[employer] ENGINEER 100 mg docusate (COLACE) 10 mg/mL oral liquid 100 mg 100 mg, oral, 2 times daily, First dose (after last modification) on Cat[place]ina 05/05/23 at 2100, Hold for diarrhea., Indications: constipationIndications:constipation Given 05/06/2023 8:21 AM [employer] ENGINEER 100 mg Given 05/05/2023 9:02 PM [employer] ENGINEER 100 mg droPERidol (INAPSINE) injection 0.625 mg 0.625 mg, intravenous, Administer over 5 Minutes, Once, On Tue05/01/23 at 0723, For 1 dose Given 05/01/2023 7:24 AM E[employer] ENGINEER 0.625 mg droPERidol (INAPSINE) injection 0.625 mg 0.625 mg, intravenous, Administer over 5 Minutes, Once, On Tue05/01/23 at 0729, For 1 dose Given 05/01/2023 7:33 AM [employer] ENGINEER 0.625 mg droPERidol (INAPSINE) injection 0.625 mg 0.625 mg, intravenous, Administer over 5 Minutes, Every 4 hours PRN, nausea, Starting on Tue05/01/23 at 0820, For 2 doses Given 05/01/2023 9:35 AM E[employer] ENGINEER 0.625 mg droPERidol (INAPSINE) injection 5 mg 5 mg, intravenous, Administer over 5 Minutes, Once, On Tue05/06/23 at 0330, For 1 dose Given 05/06/2023 3:43 AM E[employer] ENGINEER 5 mg esmolol in 0.9% sodium chloride (BREVIBLOC) 2,000 mg/100 mL (20 mg/mL) infusion (premix) 0-300 mcg/kg/min ? 107.5 kg (0-96.75 mL/hr), 20 mg/mL, intravenous, Titrated, Starting on Tue05/04/23 at 0015, Until Tue05/04/23 at 0927, Initial rate: 50 mcg/kg/min, Titrate: Up, Down, Titrate UP by: 50 mcg/kg/min, Titrate UP every: 5 minutes, Titrate DOWN by: 25 mcg/kg/min, Titrate DOWN every: 30 minutes, Goal: HR, HR Goal: Other (comment) / <60, Central line only, Routine New Bag 05/04/2023 9:05 AM E[employer] ENGINEER 300 mcg/kg/min 96.8 mL/hr New Bag 05/04/2023 8:07 AM E[employer] ENGINEER 300 mcg/kg/min 96.8 mL/h r Rate/Dose Verify 05/04/2023 8:00 AM E[employer] ENGINEER 300 mcg/kg/min 96. 8 mL/hr esmolol in 0.9% sodium chloride (BREVIBLOC) 2,000 mg/100 mL (20 mg/mL) infusion (premix) 0-300 mcg/kg/min ? 107.5 kg (0-96.75 mL/hr), 20 mg/mL, intravenous, Titrated, Starting on Tue05/04/23 at 1000, Until Catarina 05/05/23 at 1936, Initial rate: 50 mcg/kg/min, Titrate: Up, Down, Titrate UP by: 50 mcg/kg/min, Titrate UP every: 5 minutes, Titrate DOWN by: 25 mcg/kg/min, Titrate DOWN every: 30 minutes, Goal: HR, HR Goal: Other (comment) / <70, Central line only, Routine Rate/Dose Change 05/04/2023 12:27 PM [employer] ENGINEER 0 mcg/kg/min 0 mL/hr Rate/Dose Verify 05/04/2023 12:00 PM E[employer] ENGINEER 25 mcg/kg/min 8.0 6 mL/hr Rate/Dose Change 05/04/2023 11:47 AM [employer] ENGINEER 25 mcg/kg/min 8.0 6 mL/hr esmolol in 0.9% sodium chloride (BREVIBLOC) 2,500 mg/250 mL (10 mg/mL) infusion (premix) - ADS Override Pull Starting on 05/01/23 at 0500, For 1 dose, Created by cabinet override esmolol in 0.9% sodium chloride (BREVIBLOC) 2,500 mg/250 mL (10 mg/mL) infusion (premix) 0-300 mcg/kg/min ? 90 kg Order-specific weight (0-162 mL/hr), 10 mg/mL, intravenous, Titrated, Starting on Tue05/01/23 at 0503, Until Tue05/01/23 at 0741, Initial rate: 50 mcg/kg/min, Titrate: Up, Down, Titrate UP by: 50 mcg/kg/min, Titrate UP every: 5 minutes, Titrate DOWN by: 25 mcg/kg/min, Titrate DOWN every: 30 minutes, Goal: HR, HR Goal: 60-90 bpm, Routine New Bag 05/01/2023 6:35 AM E[employer]INEER 300 mcg/kg/min 162 mL/hr Rate/Dose Change 05/01/2023 5:25 AM E[employer] ENGINEER 300 mcg/kg/min 162 mL/hr Rate/Dose Change 05/01/2023 5:16 AM E[employer] ENGINEER 250 mcg/kg/min 135 mL/hr esmolol in 0.9% sodium chloride (BREVIBLOC) 2,500 mg/250 mL (10 mg/mL) infusion (premix) 0-300 mcg/kg/min ? 104.3 kg (0-187.74 mL/hr), 10 mg/mL, intravenous, Titrated, Starting on Tue05/01/23 at 0742, Until Tue05/02/23 at 0118, Initial rate: 50 mcg/kg/min, Titrate: Up, Down, Titrate UP by: 50 mcg/kg/min, Titrate UP every: 5 minutes, Titrate DOWN by: 25 mcg/kg/min, Titrate DOWN every: 30 minutes, Goal: HR, HR Goal: Other (comment) / 60-70, Routine New Bag 05/02/2023 1:03 AM E[employer] ENGINEER 300 mcg/kg/min 187.7 mL/hr Rate/Dose Verify 05/02/2023 1:00 AM E[employer] ENGINEER 300 mcg/kg/min 187 .7 mL/hr Rate/Dose Verify 05/02/2023 12:00 AM E[employer] ENGINEER 300 mcg/kg/min 18 7.7 mL/hr esmolol in 0.9% sodium chloride (BREVIBLOC) 2,500 mg/250 mL (10 mg/mL) infusion (premix) 0-300 mcg/kg/min ? 107.5 kg (0-193.5 mL/hr), 10 mg/mL, intravenous, Titrated, Starting on Tue05/02/23 at 0200, Until Tue05/02/23 at 0354, Initial rate: 50 mcg/kg/min, Titrate: Up, Down, Titrate UP by: 50 mcg/kg/min, Titrate UP every: 5 minutes, Titrate DOWN by: 25 mcg/kg/min, Titrate DOWN every: 30 minutes, Goal: HR, HR Goal: Other (comment) / 60-70, Routine New Bag 05/02/2023 3:49 AM E[employer]INEER 300 mcg/kg/min 193.5 mL/hr Rate/Dose Verify 05/02/2023 3:00 AM E[employer]RO [employer] ENGINEER 300 mcg/kg/min 193 .5 mL/hr New Bag 05/02/2023 2:41 AM E[employer] ENGINEER 300 mcg/kg/min 193.5 mL/ hr esmolol in 0.9% sodium chloride (BREVIBLOC) 2,500 mg/250 mL (10 mg/mL) infusion (premix) 0-300 mcg/kg/min ? 104.3 kg (0-187.74 mL/hr), 10 mg/mL, intravenous, Titrated, Starting on Tue05/02/23 at 0430, Until Tue05/04/23 at 0832, Initial rate: 50 mcg/kg/min, Titrate: Up, Down, Titrate UP by: 50 mcg/kg/min, Titrate UP every: 5 minutes, Titrate DOWN by: 25 mcg/kg/min, Titrate DOWN every: 30 minutes, Goal: HR, HR Goal: Other (comment) / 60-70, Routine Rate/Dose Verify 05/03/2023 10:00 PM [employer]INEER 300 mcg/kg/min 187.7 mL/hr Rate/Dose Verify 05/03/2023 9:00 PM E[employer] ENGINEER 300 mcg/kg/min 187 .7 mL/hr Rate/Dose Verify 05/03/2023 8:00 PM [employer] ENGINEER 300 mcg/kg/min 187 .7 mL/hr famotidine (PEPCID) 20 mg/50 mL in sodium chloride 0.9% (premix) 20 mg 20 mg, intravenous, at 150 mL/hr, Administer over 20 Minutes, Every 12 hours scheduled, First dose on Tue05/02/23 at 2215, Indications: Prevention of Stress UlcerIndications:Prevention of Stress Ulcer New Bag 05/05/2023 10:05 AM E[employer] ENGINEER 20 mg 150 mL/hr New Bag 05/04/2023 8:24 PM E[employer] ENGINEER 20 mg 150 mL/hr New Bag 05/04/2023 8:07 AM E[employer] ENGINEER 20 mg 150 mL/hr fentaNYL (SUBLIMAZE) 50 mcg/mL preservative free injection - ADS Override Pull Starting on Tue05/01/23 at 2302, For 1 dose, Created by cabinet override fentaNYL (SUBLIMAZE) bolus from bag 100 mcg 100 mcg, intravenous, Once, On Tue05/06/23 at 2215, For 1 dose Bolus from Bag 05/06/2023 9:29 PM [employer] ENGINEER 100 mcg fentaNYL (SUBLIMAZE) bolus from bag 50 mcg 50 mcg, intravenous, Every 15 min PRN, painful stimuli include turning, bathing, nasotracheal suctioning, physical therapy, dressing changes, and intravenous catheter and invasive line placement., Starting on Tue05/03/23 at 0800, Discontinue when patient extubated. ??, Indications: PainIndications:Pain Bolus from Bag 05/05/2023 8:39 AM ELECT[employer] ENGINEER 50 mcg Bolus from Bag 05/05/2023 5:16 AM E[employer]RO [employer] ENGINEER 50 mcg Bolus from Bag 05/04/2023 7:30 PM E[employer]RO [employer] ENGINEER 50 mcg fentaNYL (SUBLIMAZE) preservative free injection 100 mcg 100 mcg, intravenous, Once, On Tue05/06/23 at 2215, For 1 dose Given 05/06/2023 9:50 PM E[employer] ENGINEER 100 mcg fentaNYL (SUBLIMAZE) preservative free injection 50 mcg 50 mcg, intravenous, Once, On Tue05/02/23 at 0000, For 1 dose Given 05/01/2023 11:05 PM ELECTRO [employer] ENGINEER 50 mcg fentaNYL (SUBLIMAZE) preservative free injection 50 mcg 50 mcg, intravenous, Once, On Tue05/02/23 at 0430, For 1 dose Given 05/02/2023 1:45 AM ELECT[employer] ENGINEER 50 mcg fentaNYL 2500 mcg/50 mL cassette/syringe (premix) 0-400 mcg/hr (0-8 mL/hr), intravenous, Titrated, Starting on Tue05/03/23 at 0845, CONTINUE current rate if pain control at goal - less than 2 PRN breakthrough pain doses (not painful stimuli doses) in previous 4 hours. INCREASE infusion per titration instructions if 2 or more PRN breakthrough pain doses (not painful stimuli doses) in previous 4 hours until pain score goal reached. DECREASE infusion per titration instructions if pain controlled but oversedated compared to goal. Discontinue when patient extubated., Titration instructions: Titrate, Initial dose: 50 mcg/hr, Titrate: Up/Down, Titrate by: 25 mcg/hr, Every: 30 minutes, Goal: RASS, RASS Goal: 0, -1, -2, Indications: Pain in Intubated PatientsIndications:Pain in Intubated Patients Rate/Dose Verify 05/05/2023 7:00 AM ELECTRO [employer] ENGINEER 150 mcg/hr 3 mL/hr Rate/Dose Verify 05/05/2023 6:00 AM ELECTRO [employer] ENGINEER 150 mcg/hr 3 mL/hr Rate/Dose Verify 05/05/2023 5:00 AM E[employer] ENGINEER 150 mcg/hr 3 mL/hr fentaNYL 2500 mcg/50 mL cassette/syringe (premix) 0-400 mcg/hr (0-8 mL/hr), intravenous, Titrated, Starting on Tue05/06/23 at 2115, CONTINUE current rate if pain control at goal - less than 2 PRN breakthrough pain doses (not painful stimuli doses) in previous 4 hours. INCREASE infusion per titration instructions if 2 or more PRN breakthrough pain doses (not painful stimuli doses) in previous 4 hours until pain score goal reached. DECREASE infusion per titration instructions if pain controlled but oversedated compared to goal. Discontinue when patient extubated., Titration instructions: Titrate, Initial dose: 25 mcg/hr, Titrate: Up/Down, Titrate by: 25 mcg/hr, Every: 30 minutes, Goal: Pain, Pain Goal: 3, 2, 1, 0, Indications: Pain in Intubated PatientsIndications:Pain in Intubated Patients Rate/Dose Verify 05/07/2023 2:00 AM E[employer]RO [employer] ENGINEER 50 mcg/hr 1 mL/hr Rate/Dose Change 05/07/2023 1:18 AM E[employer] ENGINEER 50 mcg/hr 1 mL/hr Rate/Dose Verify 05/07/2023 1:00 AM E[employer] ENGINEER 50 mcg/hr 1 mL/hr furosemide (LASIX) 10 mg/mL injection 40 mg 40 mg, intravenous, Once, On Tue05/03/23 at 0600, For 1 dose, For IV push: administer doses < 160 mg at a rate of 20 -40 mg/min. Doses >/= 160 mg should be administered no faster than 4 mg/min. Room temperature only Given 05/03/2023 6:1 5 AM ELECTRO [employer] ENGINEER 40 mg furosemide (LASIX) 10 mg/mL injection 40 mg 40 mg, intravenous, Once, On Tue05/03/23 at 1215, For 1 dose, For IV push: administer doses < 160 mg at a rate of 20 -40 mg/min. Doses >/= 160 mg should be administered no faster than 4 mg/min. Room temperature only Given 05/03/2023 11: 50 AM [employer] ENGINEER 40 mg furosemide (LASIX) 10 mg/mL injection 40 mg 40 mg, intravenous, 2 times daily (for diuretics), First dose on Tue05/08/23 at 1030, For 2 doses, Room temperature only Given 05/08/2023 10:03 AM [employer] 40 mg furosemide (LASIX) 10 mg/mL injection 40 mg 40 mg, intravenous, 2 times daily (for diuretics), First dose (after last reorder) on Tue05/09/23 at 0945, For 2 doses, Room temperature only Given 05/09/2023 3:19 PM [employer] 40 mg Given 05/09/2023 9:54 AM [employer] 40 mg furosemide (LASIX) 10 mg/mL injection 40 mg 40 mg, intravenous, 2 times daily (for diuretics), First dose (after last reorder) on Tue05/10/23 at 0915, For 2 doses, Room temperature only Given 05/10/2023 3:15 PM [employer] 40 mg Given 05/10/2023 9:18 AM [employer] 40 mg gabapentin (NEURONTIN) capsule 300 mg 300 mg, oral, 3 times daily, First dose on Tue05/08/23 at 1015 Given 05/16/2023 4:14 PM [employer] 300 mg Given 05/16/2023 9:31 AM [employer]LECTRO [employer] ENGINEER 300 mg Given 05/15/2023 9:17 PM [employer]INEER 300 mg haloperidol (HALDOL) injection 10 mg 10 mg, intravenous, Every 6 hours PRN, agitation, delirium, Starting on Tue05/08/23 at 2017, If administered IV push, administer over 5 min for adults Given 05/08/2023 10:05 PM [employer]ER 10 mg heparin 5,000 unit/mL injection 5,000 Units 5,000 Units, subcutaneous, Every 8 hours scheduled, First dose on Tue05/03/23 at 1400, Indications: Deep Vein Thrombosis PreventionIndications:Deep Vein Thrombosis Prevention Given 05/16/2023 1:38 PM [employer] 5,000 Units Left Lower Abdomen Given 05/16/2023 6:19 AM [employer]ER 5,000 Units L eft Upper Arm Given 05/15/2023 9:17 PM [employer]ER 5,000 Units L eft Upper Arm HYDROmorphone (DILAUDID) 0.5 mg/0.5 mL injection - ADS Override Pull Starting on [place] 05/05/23 at 1057, For 1 dose, Created by cabinet override HYDROmorphone (DILAUDID) injection 0.2 mg 0.2 mg, intravenous, Administer over 2 Minutes, Every 2 hours PRN, breakthrough pain, Starting on Tue05/11/23 at 0849 Given 05/12/2023 4:56 AM [employer]ER 0.2 m g HYDROmorphone (DILAUDID) injection 0.4 mg 0.4 mg, intravenous, Administer over 2 Minutes, Every 2 hours PRN, breakthrough pain, Starting on Tue05/02/23 at 0152 Given 05/03/2023 8:29 PM [employer]ER 0.4 mg Given 05/03/2023 5:15 AM [employer]ER 0.4 mg Given 05/03/2023 3:35 AM [employer]ER 0.4 mg HYDROmorphone (DILAUDID) injection 0.5 mg 0.5 mg, intravenous, Administer over 2 Minutes, Once, On Tue05/01/23 at 0747, For 1 dose Given 05/01/2023 7:49 AM [employer]ER 0.5 mg HYDROmorphone (DILAUDID) injection 0.5 mg 0.5 mg, intravenous, Administer over 2 Minutes, Every 2 hours PRN, 1st line for pain, Starting on 05/01/23 at 0820, For 3 doses Given 05/01/2023 9:34 AM [employer] 0.5 mg HYDROmorphone (DILAUDID) injection 0.5 mg 0.5 mg, intravenous, Administer over 2 Minutes, Every 2 hours PRN, breakthrough pain, Starting on Tue05/01/23 at 1048, For 2 doses Given 05/01/2023 11:29 PM [employer] 0.5 mg Given 05/01/2023 6:35 PM [employer]ER 0.5 mg HYDROmorphone (DILAUDID) injection 0.5 mg 0.5 mg, intravenous, Administer over 2 Minutes, Once, On 05/02/23 at 0145, For 1 dose Given 05/02/2023 1:12 AM [employer] 0.5 mg HYDROmorphone (DILAUDID) injection 0.5 mg 0.5 mg, intravenous, Administer over 2 Minutes, Once, On [place] 05/05/23 at 1230, For 1 dose Given 05/05/2023 11:55 AM [employer]ER 0.5 mg HYDROmorphone (DILAUDID) injection 0.5 mg 0.5 mg, intravenous, Administer over 2 Minutes, Every 2 hours PRN, breakthrough pain, Starting on [place] 05/05/23 at 1628 Given 05/08/2023 10:03 AM [employer]ER 0.5 m g Given 05/08/2023 8:04 AM [employer]ER 0.5 mg Given 05/08/2023 6:01 AM [employer]ER 0.5 mg HYDROmorphone (DILAUDID) injection 0.5 mg 0.5 mg, intravenous, Administer over 2 Minutes, Once, On [place] 05/05/23 at 1845, For 1 dose Given 05/05/2023 6:05 PM [employer]ER 0.5 mg HYDROmorphone (DILAUDID) injection 0.5 mg 0.5 mg, intravenous, Administer over 2 Minutes, Once, On [place] 05/05/23 at 2345, For 1 dose Given 05/05/2023 10:33 PM [employer]ER 0.5 mg HYDROmorphone (DILAUDID) injection 0.5 mg 0.5 mg, intravenous, Administer over 2 Minutes, Once, On 05/07/23 at 1445, For 1 dose Given 05/07/2023 2:14 PM [employer]ER 0.5 mg HYDROmorphone (DILAUDID) injection 0.5 mg 0.5 mg, intravenous, Administer over 2 Minutes, Once, On 05/07/23 at 2045, For 1 dose Given 05/07/2023 8:24 PM [employer]ER 0.5 mg HYDROmorphone (DILAUDID) injection 0.5 mg 0.5 mg, intravenous, Administer over 2 Minutes, Every 2 hours PRN, breakthrough pain, Starting on 05/08/23 at 1300 Given 2023 7:31 AM [employer] 0.5 m g Given 05/10/2023 10:27 AM [employer]ER 0.5 mg Given 05/09/2023 7:57 PM [employer]ER 0.5 mg HYDROmorphone (DILAUDID) injection 0.5 mg 0.5 mg, intravenous, Administer over 2 Minutes, Once, On [place] 05/12/23 at 2000, For 1 dose Given 05/12/2023 7:26 PM [employer]ER 0.5 mg HYDROmorphone (DILAUDID) injection 1 mg 1 mg, intravenous, Administer over 2 Minutes, Once, On [place] 05/01/23 at 0603, For 1 dose Given 05/01/2023 6:06 AM [employer] ENGINEER 1 m g hydrOXYzine (ATARAX) tablet 10 mg 10 mg, oral, Once, On [place] 05/08/23 at 0400, For 1 dose Given 05/08/2023 3:28 AM [employer]ER 10 mg hydrOXYzine (ATARAX) tablet 25 mg 25 mg, oral, 4 times daily PRN, anxiety, Starting on [place] 05/12/23 at 1931 Given 05/15/2023 9:17 PM [employer]ER 25 mg Given 05/13/2023 9:26 PM [employer]ER 25 mg Given 05/13/2023 5:18 AM [employer] 25 mg hydrOXYzine (ATARAX) tablet 50 mg 50 mg, oral, Once, On 05/02/23 at 1600, For 1 dose Given 05/02/2023 3:39 PM [employer]INEER 50 mg ioversoL (OPTIRAY 350) syringe 125 mL 125 mL, intravenous, Once in imaging, contrast, Starting on 05/02/23 at 0925, For 1 dose Contrast Given 05/02/2023 9:25 AM [employer] ENG[employer]ER 120 mL ioversoL (OPTIRAY 350) syringe 125 mL 125 mL, intravenous, Once in imaging, contrast, Starting on [place] 05/05/23 at 1827, For 1 dose Contrast Given 05/05/2023 6:32 PM [employer]ER 100 mL ioversoL (OPTIRAY 350) syringe 125 mL 125 mL, intravenous, Once in imaging, contrast, Starting on 05/16/23 at 1023, For 1 dose Contrast Given 05/16/2023 10:29 AM [employer] ENG[employer]ER 125 mL ioversoL (OPTIRAY 350) syringe 75 mL 75 mL, intravenous, Once in imaging, contrast, Starting on Tue05/11/23 at 1107, For 1 dose Contrast Given 2023 11:17 AM [employer]ER 71 mL ioversoL (OPTIRAY 350) syringe 75 mL 75 mL, intravenous, Once in imaging, contrast, Starting on Tue05/11/23 at 1116, For 1 dose Contrast Given 2023 11:17 AM [employer]ER 30 mL ketamine (KETALAR) bolus from bag 10 mg 10 mg, intravenous, Once, On Tue05/06/23 at 0200, For 1 dose Bolus from Bag 05/06/2023 12:15 AM [employer] 10 mg ketamine (KETALAR) bolus from bag 10 mg 10 mg, intravenous, Once, On Tue05/06/23 at 0400, For 1 dose Bolus from Bag 05/06/2023 4:39 AM [employer]ER 10 mg ketamine (KETALAR) injection 10 mg 10 mg, intravenous, Administer over 2 Minutes, Every 3 hours PRN, other, 2nd line for pain, Starting on Tue05/08/23 at 0933 Given 05/08/2023 11:37 AM [employer]ER 10 mg ketamine (KETALAR) injection 10 mg 10 mg, intravenous, Administer over 2 Minutes, Every 3 hours PRN, other, 2nd line for pain, Starting on Tue05/08/23 at 1400 Given 05/08/2023 2:52 PM [employer]ER 10 mg ketamine (KETALAR) injection 100 mg 100 mg, intravenous, Administer over 2 Minutes, Once, On Tue05/06/23 at 2115, For 1 dose Given 05/06/2023 9:25 PM [employer] 100 mg ketamine in 0.9% sodium chloride (KETALAR) 1,000 mg/100 mL (10 mg/mL) infusion (premix) 50 mg/hr (5 mL/hr), 10 mg/mL, intravenous, Continuous, Starting on Tue05/04/23 at 0415, Until [place] 05/05/23 at 2336, Indications: Sedation, RoutineIndications:Sedation Rate/Dose Verify 05/05/2023 7:00 AM [employer] 50 mg/hr 5 mL/hr Rate/Dose Verify 05/05/2023 6:00 AM [employer]ER 50 mg/hr 5 mL/hr Rate/Dose Verify 05/05/2023 5:00 AM [employer]INEER 50 mg/hr 5 mL/hr ketamine in 0.9% sodium chloride (KETALAR) 1,000 mg/100 mL (10 mg/mL) infusion (premix) 10 mg/hr (1 mL/hr), 10 mg/mL, intravenous, Continuous, Starting on Tue05/06/23 at 0015, Until Tue05/06/23 at 0501, Indications: Acute Pain, Initial Rate: Do Not Titrate, RoutineIndications:Acute Pain Rate/Dose Verify 05/06/2023 5:00 AM [employer] 10 mg/hr 1 mL/hr Rate/Dose Verify 05/06/2023 4:00 AM [employer]INEER 10 mg/hr 1 mL/hr Rate/Dose Verify 05/06/2023 3:00 AM [employer]INEER 10 mg/hr 1 mL/hr ketamine in 0.9% sodium chloride (KETALAR) 1,000 mg/100 mL (10 mg/mL) infusion (premix) 20 mg/hr (2 mL/hr), 10 mg/mL, intravenous, Continuous, Starting on Tue05/08/23 at 0045, Until Tue05/08/23 at 0934, Indications: Acute Pain, Initial Rate: Do Not Titrate, RoutineIndications:Acute Pain Rate/Dose Verify 05/08/2023 9:00 AM [employer] 20 mg/hr 2 mL/hr Rate/Dose Verify 05/08/2023 8:00 AM [employer] ENGINEER 20 mg/hr 2 mL/hr Rate/Dose Verify 05/08/2023 7:00 AM [employer] ENGINEER 20 mg/hr 2 mL/hr labetaloL (NORMODYNE,TRANDATE) 5 mg/mL injection - ADS Override Pull Starting on Tue05/03/23 at 1506, For 1 dose, Created by cabinet override labetaloL (NORMODYNE,TRANDATE) injection 10 mg 10 mg, intravenous, at 60 mL/hr, Administer over 2 Minutes, Every 6 hours PRN, high blood pressure, SBP > 180 mmHg, Starting on Tue05/09/23 at 0903, Hold for HR < 70 Given 05/10/2023 4:54 AM [employer]ER 10 mg 60 mL/hr Given 05/09/2023 9:39 PM [employer] ENGINEER 10 mg 60 mL/hr Given 05/09/2023 3:15 PM [employer] ENGINEER 10 mg 60 mL/hr labetaloL (NORMODYNE,TRANDATE) injection 10 mg 10 mg, intravenous, at 60 mL/hr, Administer over 2 Minutes, Once, On Tue05/09/23 at 1915, For 1 dose Given 05/09/2023 6:41 PM [employer]ER 10 mg 60 mL/hr labetaloL (NORMODYNE,TRANDATE) injection 20 mg 20 mg, intravenous, at 120 mL/hr, Administer over 2 Minutes, Once, On Tue05/03/23 at 1500, For 1 dose Given 05/03/2023 2:42 PM [employer]ER 20 mg 120 mL/hr labetaloL (NORMODYNE,TRANDATE) injection 20 mg 20 mg, intravenous, at 120 mL/hr, Administer over 2 Minutes, Once, On Tue05/03/23 at 1545, For 1 dose Given 05/03/2023 3:08 PM [employer]ER 20 mg 120 mL/hr labetaloL (NORMODYNE,TRANDATE) injection 20 mg 20 mg, intravenous, at 120 mL/hr, Administer over 2 Minutes, Every 2 hours PRN, other, HR > 75, Starting on Tue05/03/23 at 1747 Given 05/03/2023 10:28 PM [employer]ER 20 mg 120 mL/ hr Given 05/03/2023 8:28 PM [employer] ENGINEER 20 mg 120 mL/hr Given 05/03/2023 6:19 PM E[employer] ENGINEER 20 mg 120 mL/hr labetaloL (NORMODYNE,TRANDATE) injection 20 mg 20 mg, intravenous, at 120 mL/hr, Administer over 2 Minutes, Once, On [facility] 05/05/23 at 1230, For 1 dose Given 05/05/2023 11:55 AM [employer] ENGINEER 20 mg 120 mL/hr labetaloL (NORMODYNE,TRANDATE) injection 20 mg 20 mg, intravenous, at 120 mL/hr, Administer over 2 Minutes, Once, On Tue05/05/23 at 1630, For 1 dose Given 05/05/2023 3:52 PM [employer]INEER 20 mg 120 mL/hr labetaloL (NORMODYNE,TRANDATE) injection 40 mg 40 mg, intravenous, at 240 mL/hr, Administer over 2 Minutes, Every 2 hours PRN, other, HR > 75, Starting on Tue05/04/23 at 0000 Given 05/04/2023 2:50 AM [employer]ER 40 mg 240 mL/h r Given 05/04/2023 12:34 AM [employer] ENGINEER 40 mg 240 mL/hr Lactated Ringer's (LR) bolus 500 mL 500 mL, intravenous, Once, On Tue05/03/23 at 0245, For 1 dose New Bag 05/03/2023 2:15 AM [employer] ENGINEER 500 mL Lactated Ringer's (LR) infusion 10 mL/hr, intravenous, Continuous, Starting on Tue05/02/23 at 2215 Rate/Dose Verify 2023 3:00 PM [employer]ER 10 mL/hr 10 mL/hr Rate/Dose Verify 2023 2:00 PM [employer] ENGINEER 10 mL/hr 10 mL/h r Rate/Dose Verify 2023 1:00 PM [employer]INEER 10 mL/hr 10 mL/h r lidocaine (ASPERCREME) 4 % patch 1 patch 1 patch, transdermal, Administer over 12 Hours, Daily, First dose (after last modification) on Tue05/10/23 at 1800, Apply to affected area: neck Medication Applied 05/13/2023 8:35 AM [employer]ER 1 patch Back Medication Applied 05/12/2023 9:11 AM [employer] ENG[employer]ER 1 patch Back Medication Applied 2023 8:31 AM [employer] ENGINEER 1 patch Other (Comment) lidocaine (ASPERCREME) 4 % patch 2 patch 2 patch, transdermal, Administer over 12 Hours, Every 24 hours, First dose on Tue05/02/23 at 0345, Apply to affected area: back Medication Applied 05/07/2023 3:03 AM [employer] ENG[employer]ER 2 patches Back Medication Applied 05/04/2023 3:00 AM [employer] ENGINEER 2 patches Back Medication Applied 05/02/2023 3:11 AM [employer] ENGINEER 2 patches Right Shoulder lidocaine (ASPERCREME) 4 % patch 2 patch 2 patch, transdermal, Administer over 12 Hours, Daily, First dose (after last modification) on Tue05/13/23 at 2030, Apply to affected area: neck Medication Applied 05/15/2023 9:16 PM [employer] ENG[employer]ER 1 patch Back Medication Applied 05/14/2023 9:27 PM [employer] ENGINEER 2 patches Other (Comment) Medication Applied 05/13/2023 9:25 PM E[employer] ENGINEER 2 patches Back lidocaine (GLYDO) 2 % jelly 220 mg 220 mg (11 mL), urethral, Once, On Tue05/11/23 at 2100, For 1 dose Given 2023 9:00 PM [employer] ENGINEER 220 mg lidocaine (XYLOCAINE) 10 mg/mL (1 %) injection 50 mg 50 mg (5 mL), subcutaneous, Once, On Tue05/10/23 at 1015, For 1 dose, Indications: Administration of Local Anesthesia, for LD removal by NSGYIndications:Administ ration of Local Anesthesia,for LD removal by NSGY Given 05/10/2023 9:46 AM [employer] ENGINEER 50 mg Other (Comment) lidocaine (XYLOCAINE) 20 mg/mL (2 %) injection 100 mg 100 mg (5 mL), other, Once, On [place] 05/05/23 at 1445, For 1 dose, Indications: Administration of Local AnesthesiaIndications:Ad ministration of Local Anesthesia Given 05/05/2023 2:42 PM [employer] ENGINEER 100 mg lidocaine (XYLOCAINE) 20 mg/mL (2 %) preservative free injection - ADS Override Pull Starting on [place] 05/05/23 at 2351, For 1 dose, Created by cabinet override Given 05/06/2023 1:15 AM E[employer] ENGINEER 100 mg lidocaine in dextrose 5% 2 g/250 mL (8 mg/mL) infusion (premix) 1 mg/kg/hr ? 70.7 kg [place] weight (8.8375 mL/hr, rounded to 8.84 mL/hr), 8 mg/mL, intravenous, Continuous, Starting on Tue05/02/23 at 1330, Until Tue05/03/23 at 0928, Indications: Pain, I understand that a pain management consult is required and that this therapy can only be ordered by the Pain Service, Palliative Care Service, or ICU team. I attest that I/authorizing provider am an: ICU clinician that will order the pain management consult linked to this order, Call MD for symptoms of toxicity (ringing in ears, metallic taste, somnolence, numb lips) or lidocaine level greater than 5., RoutineIndications:Pain Rate/Dose Verify 05/02/2023 4:27 PM ELECTRO [employer] ENGINEER 8.84 mL/hr New Bag 05/02/2023 1:06 PM [employer] ENGINEER 1 mg/kg/hr 8.84 mL/hr lidocaine in dextrose 5% 2 g/250 mL (8 mg/mL) infusion (premix) 1 mg/kg/hr ? 70.7 kg [place] weight (8.8375 mL/hr, rounded to 8.84 mL/hr), 8 mg/mL, intravenous, Continuous, Starting on 05/07/23 at 1815, Until Tue05/11/23 at 0855, Indications: Pain, I understand that a pain management consult is required and that this therapy can only be ordered by the Pain Service, Palliative Care Service, or ICU team. I attest that I/authorizing provider am an: ICU clinician that will order the pain management consult linked to this order, Call MD for symptoms of toxicity (ringing in ears, metallic taste, somnolence, numb lips) or lidocaine level greater than 5., RoutineIndications:Pain Rate/Dose Verify 2023 8:00 AM E[employer]RO [employer] ENGINEER 1 mg/kg/hr 8.84 mL/hr Rate/Dose Verify 2023 7:00 AM E[employer] ENGINEER 1 mg/kg/hr 8.84 mL /hr Rate/Dose Verify 2023 6:00 AM [employer] ENGINEER 1 mg/kg/hr 8.84 mL /hr linezolid (ZYVOX) 600 mg/300 mL in dextrose 5% (premix) 600 mg 600 mg, intravenous, at 150 mL/hr, Administer over 2 Hours, Every 12 hours scheduled, First dose on Tue05/04/23 at 0015, Indications: Blood Stream/Endovascular InfectionIndications:Blood Stream/Endovascular Infection New Bag 05/06/2023 8:27 AM [employer] ENGINEER 600 mg 1 50 mL/hr New Bag 05/05/2023 8:38 PM [employer] ENGINEER 600 mg 150 mL/hr New Bag 05/05/2023 10:05 AM [employer] ENGINEER 600 mg 150 mL/hr lisinopriL (PRINIVIL,ZESTRIL) tablet 10 mg 10 mg, feeding tube, Daily, First dose (after last modification) on [place] 05/05/23 at 0900, Hold for MAP < 65. Given 05/05/2023 8:49 AM [employer] ENGINEER 10 mg lisinopriL (PRINIVIL,ZESTRIL) tablet 5 mg 5 mg, feeding tube, Daily, First dose on 05/03/23 at 1815, Hold for MAP < 65. Given 05/04/2023 8:07 AM E[employer] ENGINEER 5 mg Given 05/03/2023 6:12 PM E[employer] ENGINEER 5 mg lisinopriL (PRINIVIL,ZESTRIL) tablet 5 mg 5 mg, feeding tube, Once, On Tue05/04/23 at 1000, For 1 dose Given 05/04/2023 9:56 AM E[employer] ENGINEER 5 mg lisinopriL (PRINIVIL,ZESTRIL) tablet 5 mg 5 mg, feeding tube, Once, On Tue05/04/23 at 2230, For 1 dose Given 05/04/2023 10:33 PM E[employer] ENGINEER 5 mg lisinopriL (PRINIVIL,ZESTRIL) tablet 5 mg 5 mg, oral, Once, On [place] 05/05/23 at 1000, For 1 dose Given 05/05/2023 10:01 AM E[employer] ENGINEER 5 mg magnesium citrate oral solution 296 mL 296 mL, oral, Once, On Tue05/14/23 at 1030, For 1 dose Given 05/14/2023 11:06 AM E[employer] ENGINEER 296 mL magnesium sulfate 2 g/50 mL in water (premix) 2 g 2 g, intravenous, Administer over 60 Minutes, Once, On Tue05/03/23 at 0015, For 1 dose New Bag 05/03/2023 1:10 AM E[employer] ENGINEER 2 g magnesium sulfate 2 g/50 mL in water (premix) 2 g 2 g, intravenous, Administer over 60 Minutes, Once, On Tue05/05/23 at 0145, For 1 dose New Bag 05/05/2023 1:20 AM E[employer]RO [employer] ENGINEER 2 g meropenem (MERREM) 1,000 mg/110 mL in sodium chloride 0.9% (premix) 1,000 mg 1,000 mg, intravenous, at 220 mL/hr, Administer over 30 Minutes, Every 8 hours scheduled, First dose (after last modification) on Tue05/04/23 at 1400, For 20 doses, Indications: Blood Stream/Endovascular InfectionIndications:Blood Stream/Endovascular Infection New Bag 05/10/2023 9:00 PM E[employer] ENGINEER 1,000 mg 2 20 mL/hr New Bag 05/10/2023 1:32 PM ELECTRO [employer] ENGINEER 1,000 mg 220 mL/hr New Bag 05/10/2023 6:40 AM E[employer] ENGINEER 1,000 mg 220 mL/hr meropenem (MERREM) 2,000 mg/120 mL in sodium chloride 0.9% (premix) 2,000 mg 2,000 mg, intravenous, Administer over 30 Minutes, Every 8 hours scheduled, First dose on Tue05/04/23 at 0015, Indications: Blood Stream/Endovascular InfectionIndications:Blood Stream/Endovascular Infection New Bag 05/04/2023 6:30 AM E[employer] ENGINEER 2,000 mg New Bag 05/04/2023 2:25 AM E[employer] ENGINEER 2,000 mg methocarbamoL (ROBAXIN) tablet 1,000 mg 1,000 mg, oral, 3 times daily, First dose on Tue05/07/23 at 1600 Given 2023 8:30 AM E[employer] ENGINEER 1,000 mg Given 05/10/2023 8:17 PM E[employer]RO [employer] ENGINEER 1,000 mg Given 05/10/2023 3:15 PM E[employer]RO [employer] ENGINEER 1,000 mg methocarbamoL (ROBAXIN) tablet 750 mg 750 mg, oral, 3 times daily PRN, muscle spasms, espeically back pain, Starting on Tue05/13/23 at 1959 Given 05/14/2023 4:14 PM E[employer] ENGINEER 750 mg Given 05/14/2023 8:23 AM E[employer] ENGINEER 750 mg Given 05/13/2023 9:26 PM E[employer] ENGINEER 750 mg methocarbamoL (ROBAXIN) tablet 750 mg 750 mg, oral, 3 times daily, First dose (after last modification) on Tue05/15/23 at 0900 Given 05/16/2023 4:14 PM ELECTRO [employer] ENGINEER 750 mg Given 05/16/2023 9:31 AM ELECT[employer] ENGINEER 750 mg Given 05/15/2023 9:17 PM ELECT[employer] ENGINEER 750 mg metoprolol (LOPRESSOR) 5 mg/5 mL injection - ADS Override Pull Starting on Tue05/09/23 at 0630, For 1 dose, Created by cabinet override metoprolol (LOPRESSOR) injection 10 mg 10 mg, intravenous, Administer over 1 Minutes, Once, On Tue05/01/23 at 2145, For 1 dose Given 05/01/2023 9:14 PM ELECT[employer] ENGINEER 10 mg metoprolol (LOPRESSOR) injection 10 mg 10 mg, intravenous, Administer over 1 Minutes, Once, On Tue05/04/23 at 0415, For 1 dose Given 05/04/2023 5:15 AM ELECTRO [employer] ENGINEER 10 mg metoprolol (LOPRESSOR) injection 10 mg 10 mg, intravenous, Administer over 1 Minutes, Once, On Tue05/04/23 at 1000, For 1 dose Given 05/04/2023 9:55 AM E[employer] ENGINEER 10 mg metoprolol (LOPRESSOR) injection 10 mg 10 mg, intravenous, Administer over 1 Minutes, Every 6 hours PRN, other, for HR > 75, Starting on Tue05/04/23 at 1304 Given 05/05/2023 5:09 PM ELECTRO OPT[employer] ENGINEER 10 mg Given 05/05/2023 10:50 AM ELECTRO [employer] ENGINEER 10 mg Given 05/04/2023 8:03 PM ELECTRO [employer] ENGINEER 10 mg metoprolol (LOPRESSOR) injection 10 mg 10 mg, intravenous, Administer over 1 Minutes, Once, On Tue05/05/23 at 0115, For 1 dose Given 05/05/2023 12:54 AM ELECTRO [employer] ENGINEER 10 mg metoprolol (LOPRESSOR) injection 10 mg 10 mg, intravenous, Administer over 1 Minutes, Once, On Tue05/09/23 at 0700, For 1 dose Given 05/09/2023 6:33 AM ELECTRO [employer] ENGINEER 10 mg metoprolol (LOPRESSOR) injection 5 mg 5 mg, intravenous, Administer over 1 Minutes, Once, On 05/01/23 at 2000, For 1 dose Given 05/01/2023 7:26 PM ELECTRO [employer] ENGINEER 5 mg metoprolol (LOPRESSOR) injection 5 mg 5 mg, intravenous, Administer over 1 Minutes, Once, On Tue05/04/23 at 0015, For 1 dose Given 05/04/2023 12:28 AM ELECTRO [employer] ENGINEER 5 mg metoprolol (LOPRESSOR) tablet 100 mg 100 mg, feeding tube, 2 times daily, First dose (after last modification) on Tue05/05/23 at 0900 Given 05/05/2023 8:48 AM E[employer] ENGINEER 100 mg metoprolol tartrate (LOPRESSOR) immediate release tablet 50 mg 50 mg, feeding tube, 2 times daily, First dose (after last modification) on Tue05/04/23 at 1345 Given 05/04/2023 8:04 PM ELECTRO [employer] ENGINEER 50 mg Given 05/04/2023 1:26 PM ELECTRO [employer] ENGINEER 50 mg midazolam (VERSED) 1 mg/mL injection - ADS Override Pull Starting on Tue05/03/23 at 2053, For 1 dose, Created by cabinet override midazolam (VERSED) 1 mg/mL injection 2 mg 2 mg, intravenous, Every 1 hour PRN, sedation, Starting on Tue05/04/23 at 0330 Given 05/06/2023 4:20 AM ELECTRO [employer] ENGINEER 2 mg Given 05/05/2023 10:28 PM ELECTRO OPT[employer] ENGINEER 2 mg Given 05/05/2023 5:11 AM ELECTRO [employer] ENGINEER 2 mg midazolam (VERSED) 1 mg/mL injection 2 mg 2 mg, intravenous, Every 2 hours PRN, anxiety, Starting on Tue05/08/23 at 1745 Given 05/09/2023 1:58 AM ELECTRO [employer] ENGINEER 2 mg Given 05/08/2023 10:12 PM ELECTRO [employer] ENGINEER 2 mg Given 05/08/2023 7:37 PM ELECTRO [employer] ENGINEER 2 mg midazolam (VERSED) 1 mg/mL injection 5 mg 5 mg, intravenous, Once, On Tue05/03/23 at 2130, For 1 dose Given 05/03/2023 9:05 PM ELECT[employer] ENGINEER 5 mg morphine 2 mg/mL injection - ADS Override Pull Starting on Tue05/01/23 at 0508, For 1 dose, Created by cabinet override morphine injection 4 mg 4 mg, intravenous, Administer over 4 Minutes, Every 4 hours PRN, 1st line for pain, Starting on Tue05/01/23 at 0507, For 3 doses Given 05/01/2023 5:11 AM ELECT[employer] ENGINEER 4 mg niCARdipine (CARDENE) 125,000 mcg in sodium chloride 0.9% 250 mL (500 mcg/mL) infusion 0-2.5 mcg/kg/min ? 111.6 kg (0-33.48 mL/hr), 500 mcg/mL, intravenous, Titrated, Starting on Tue05/09/23 at 0645, Until Tue05/10/23 at 1533, Initial rate: 0.5 mcg/kg/min, Titrate: Up/Down, Titrate by: 0.5 mcg/kg/min, Every: 10 minutes, Goal: MAP, MAP Goal: Other (comment) / MAP >100, SBP <180, Maximum 2.5 mcg/kg/min or 15 mg/hr. Contact provider if maximum reached and MAP/BP not at goal for additional instructions. Central line only, Routine Rate/Dose Verify 05/10/2023 3:00 PM ELECTRO [employer] ENGINEER 1.5 mcg/kg/min 20.1 mL/hr Rate/Dose Verify 05/10/2023 2:00 PM ELECTRO [employer] ENGINEER 1.5 mcg/kg/min 20. 1 mL/hr Rate/Dose Verify 05/10/2023 1:00 PM ELECTRO [employer] ENGINEER 1.5 mcg/kg/min 20. 1 mL/hr niCARdipine (CARDENE) 125,000 mcg in sodium chloride 0.9% 250 mL (500 mcg/mL) infusion 0-2.5 mcg/kg/min ? 111.6 kg (0-33.48 mL/hr), 500 mcg/mL, intravenous, Titrated, Starting on Tue05/10/23 at 1615, Until Tue05/10/23 at 1610, Initial rate: 0.5 mcg/kg/min, Titrate: Up/Down, Titrate by: 0.5 mcg/kg/min, Every: 10 minutes, Goal: MAP, MAP Goal: Other (comment) / MAP >100, SBP <160, Maximum 2.5 mcg/kg/min or 15 mg/hr. Contact provider if maximum reached and MAP/BP not at goal for additional instructions. Central line only, Routine Rate/Dose Verify 05/10/2023 4:00 PM ELECTRO [employer] ENGINEER 1.5 mcg/kg/min 20.1 mL/hr Rate/Dose Change 05/10/2023 3:40 PM ELECTRO [employer] ENGINEER 1.5 mcg/kg/min 20. 1 mL/hr niCARdipine (CARDENE) 125,000 mcg in sodium chloride 0.9% 250 mL (500 mcg/mL) infusion 0-2.5 mcg/kg/min ? 111.6 kg (0-33.48 mL/hr), 500 mcg/mL, intravenous, Titrated, Starting on Tue05/10/23 at 1645, Until Tue05/11/23 at 0855, Initial rate: 0.5 mcg/kg/min, Titrate: Up/Down, Titrate by: 0.5 mcg/kg/min, Every: 10 minutes, Goal: MAP, MAP Goal: Other (comment) / sBP 140-180, Maximum 2.5 mcg/kg/min or 15 mg/hr. Contact provider if maximum reached and MAP/BP not at goal for additional instructions. Central line only, Routine Rate/Dose Verify 2023 7:00 AM [employer]INEER 1 mcg/kg/min 13.39 mL/hr Rate/Dose Verify 2023 6:00 AM [employer]ER 1 mcg/kg/min 13.39 mL/hr Rate/Dose Change 2023 5:25 AM [employer]ER 1 mcg/kg/min 13.39 mL/hr niCARdipine (CARDENE) 125,000 mcg in sodium chloride 0.9% 250 mL (500 mcg/mL) infusion 0-2.5 mcg/kg/min ? 111.6 kg (0-33.48 mL/hr), 500 mcg/mL, intravenous, Titrated, Starting on Tue05/11/23 at 0930, Until Catarina 05/12/23 at 0853, Initial rate: 0.5 mcg/kg/min, Titrate: Up/Down, Titrate by: 0.5 mcg/kg/min, Every: 10 minutes, Goal: SBP, SBP Goal: Other (comment) / 140-180 mmHg, Maximum 2.5 mcg/kg/min or 15 mg/hr. Contact provider if maximum reached and MAP/BP not at goal for additional instructions. Central line only, Routine Rate/Dose Verify 2023 3:00 PM [employer] 1 mcg/kg/min 13.39 mL/hr Rate/Dose Verify 2023 2:00 PM [employer]ER 1 mcg/kg/min 13.39 mL/hr Rate/Dose Verify 2023 1:00 PM [employer] 1 mcg/kg/min 13.39 mL/hr niCARdipine in 0.9% sodium chloride (CARDENE) 25,000 mcg/50 mL (500 mcg/mL) infusion (premix) 0-2.5 mcg/kg/min ? 111.6 kg (0-33.48 mL/hr), 500 mcg/mL, intravenous, Titrated, Starting on Tue05/09/23 at 0515, Until Tue05/09/23 at 0601, Initial rate: 0.5 mcg/kg/min, Titrate: Up/Down, Titrate by: 0.5 mcg/kg/min, Every: 10 minutes, Goal: MAP, MAP Goal: Other (comment) / MAP >100, SBP <180, Maximum 2.5 mcg/kg/min or 15 mg/hr. Contact provider if maximum reached and MAP/BP not at goal for additional instructions. Central line only, Routine New Bag 05/09/2023 6:05 AM [employer] 2.5 mcg/kg/min 33.5 mL/hr Rate/Dose Verify 05/09/2023 6:00 AM [employer] 2.5 mcg/kg/min 33. 5 mL/hr Rate/Dose Change 05/09/2023 5:58 AM [employer]ER 2.5 mcg/kg/min 33. 5 mL/hr niCARdipine in sodium chloride 0.9% (CARDENE) 25,000 mcg/250 mL (100 mcg/mL) infusion (premix) solution - ADS Override Pull Starting on 05/01/23 at 0523, For 1 dose, Created by cabinet override niCARdipine in sodium chloride 0.9% (CARDENE) 25,000 mcg/250 mL (100 mcg/mL) infusion (premix) solution 0-2.5 mcg/kg/min ? 104.3 kg (0-156.45 mL/hr), 100 mcg/mL, intravenous, Titrated, Starting on 05/01/23 at 0524, Until 05/01/23 at 0741, Initial rate: 0.5 mcg/kg/min, Titrate: Up/Down, Titrate by: 0.5 mcg/kg/min, Every: 10 minutes, Goal: SBP, SBP Goal: Other (comment) / <160, Routine Rate/Dose Change 05/01/2023 7:35 AM [employer] 1 mcg/kg/min 62.6 mL/hr New Bag 05/01/2023 7:25 AM [employer] 0.5 mcg/kg/min 31.3 mL/h r niCARdipine in sodium chloride 0.9% (CARDENE) 25,000 mcg/250 mL (100 mcg/mL) infusion (premix) solution 0-2.5 mcg/kg/min ? 104.3 kg (0-156.45 mL/hr), 100 mcg/mL, intravenous, Titrated, Starting on 05/01/23 at 0742, Until 05/01/23 at 1136, Initial rate: 0.5 mcg/kg/min, Titrate: Up/Down, Titrate by: 0.5 mcg/kg/min, Every: 10 minutes, Goal: SBP, SBP Goal: Other (comment) / <100, Routine Rate/Dose Change 05/01/2023 11:43 AM [employer] 1.5 mcg/kg/min 93.9 mL/hr Rate/Dose Change 05/01/2023 11:37 AM [employer] 2 mcg/kg/min 125. 2 mL/hr New Bag 05/01/2023 11:03 AM [employer] 2.5 mcg/kg/min 156.5 mL /hr norepinephrine in dextrose 5% (LEVOPHED) 8,000 mcg/250 mL (32 mcg/mL) infusion (premix) 0-2 mcg/kg/min ? 111.6 kg (0-418.5 mL/hr), 32 mcg/mL, intravenous, Titrated, Starting on 05/07/23 at 2200, Until 05/09/23 at 0852, Initial rate: 0.05 mcg/kg/min, Titrate: Up/Down, Titrate by: 0.01 mcg/kg/min, Every: 2 minutes, Goal: MAP, MAP Goal: Other (comment) / MAP >100, SBP <180, Routine Rate/Dose Change 05/08/2023 11:06 PM [employer] 0.05 mcg/kg/min 10.46 mL/hr Rate/Dose Change 05/08/2023 11:01 PM [employer] 0.1 mcg/kg/min 20 .9 mL/hr Rate/Dose Change 05/08/2023 11:00 PM [employer] 0.14 mcg/kg/min 2 9.3 mL/hr ondansetron (ZOFRAN) injection 4 mg 4 mg, intravenous, Administer over 2 Minutes, Every 4 hours PRN, nausea, vomiting, Starting on 05/01/23 at 0507 Given 05/01/2023 5:46 AM [employer] 4 mg ondansetron (ZOFRAN) injection 4 mg 4 mg, intravenous, Administer over 2 Minutes, Every 6 hours PRN, nausea, vomiting, Starting on 05/01/23 at 1040, Indications: nausea and vomitingIndications:nausea and vomiting Given 05/08/2023 9:41 PM [employer] 4 mg Given 05/07/2023 3:40 PM [employer] 4 mg Given 05/06/2023 5:55 AM [employer] 4 mg ondansetron ODT (ZOFRAN-ODT) disintegrating tablet 4 mg 4 mg, oral, Every 4 hours PRN, nausea, Starting on 05/16/23 at 1034 oxyCODONE (ROXICODONE) tablet 10 mg 10 mg, oral, Every 4 hours PRN, 1st line for pain, Starting on 05/02/23 at 1220, Indications: PainIndications:Pain Given 05/03/2023 7:39 AM [employer] 10 mg Given 05/02/2023 1:06 PM [employer] 10 mg oxyCODONE (ROXICODONE) tablet 10 mg 10 mg, oral, Every 4 hours PRN, 1st line for pain, Starting on 05/07/23 at 1013, Indications: PainIndications:Pain Given 05/07/2023 7:11 PM [employer] 10 mg Given 05/07/2023 2:56 PM [employer] 10 mg Given 05/07/2023 10:30 AM [employer] 10 mg oxyCODONE (ROXICODONE) tablet 10 mg 10 mg, oral, Every 3 hours PRN, 1st line for pain, Starting on 05/07/23 at 2030, Indications: PainIndications:Pain Given 05/08/2023 9:17 AM [employer] 10 mg Given 05/08/2023 6:01 AM [employer] 10 mg Given 05/08/2023 3:28 AM [employer] 10 mg oxyCODONE (ROXICODONE) tablet 10 mg 10 mg, oral, Every 3 hours PRN, 1st line for pain, Starting on 05/08/23 at 1200, Indications: PainIndications:Pain Given 05/16/2023 12:08 PM [employer] 10 mg Given 05/16/2023 6:25 AM [employer] 10 mg Given 05/15/2023 9:17 PM [employer] 10 mg oxyCODONE (ROXICODONE) tablet 5 mg 5 mg, oral, Every 4 hours PRN, 1st line for pain, Starting on 05/01/23 at 1046, Indications: PainIndications:Pain Given 05/02/2023 9:02 AM [employer] 5 mg Given 05/02/2023 5:08 AM [employer] 5 mg Given 05/02/2023 1:03 AM [employer] 5 mg oxyCODONE (ROXICODONE) tablet 5 mg 5 mg, oral, Every 4 hours PRN, 1st line for pain, Starting on Catarina 05/05/23 at 1529, Indications: PainIndications:Pain Given 05/07/2023 8:00 AM [employer] 5 mg Given 05/07/2023 3:41 AM [employer]ER 5 mg Given 05/06/2023 5:07 PM [employer] [address] (PROTONIX) extended release tablet 40 mg 40 mg, oral, Daily, First dose on 05/07/23 at 1915, Do not crush, chew, cut, dissolve, open or otherwise manipulate tablet/capsule., Indications: Stress Ulcer ProphylaxisIndications:Stress Ulcer Prophylaxis Given 2023 8:30 AM [employer] 40 mg Given 05/10/2023 8:15 AM [employer] 40 mg Given 05/09/2023 8:02 AM [employer] 40 mg perflutren protein-a (OPTISON) 3 mL in sodium chloride 0.9% 8 mL syringe 1-8 mL, intravenous, Once in imaging, contrast, Starting on Tue05/02/23 at 1129, For 1 dose, Intra-Procedure (CV) Contrast Given 05/02/2023 12:22 PM [employer] 3 mL phenylephrine in 0.9% sodium chloride (KARLI-SYNEPHRINE) 25,000 mcg/250 mL (100 mcg/mL) infusion (premix) solution 0-4 mcg/kg/min ? 111.6 kg (0-267.84 mL/hr), 100 mcg/mL, intravenous, Titrated, Starting on Tue05/09/23 at 0300, Until Tue05/09/23 at 0852, Initial rate: 0.5 mcg/kg/min, Titrate: Up/Down, Titrate by: 0.1 mcg/kg/min, Every: 2 minutes, Goal: MAP, MAP Goal: Other (comment) / MAP >100, SBP <180, Protect from light, Routine New Bag 05/09/2023 2:36 AM [employer] 0.1 mcg/kg/min 6.7 mL/hr polyethylene glycol (MIRALAX) packet 17 g 17 g, oral, Daily, First dose on Tue05/03/23 at 0900, Hold for diarrhea, Indications: constipationIndications: constipation Given 05/04/2023 8:07 AM [employer] 17 g Given 05/03/2023 7:40 AM [employer] 17 g polyethylene glycol (MIRALAX) packet 17 g 17 g, feeding tube, Daily, First dose (after last modification) on Catarina 05/05/23 at 0900, Hold for diarrhea, Indications: constipationIndications:constipation Given 05/05/2023 8:49 AM [employer] 17 g polyethylene glycol (MIRALAX) packet 17 g 17 g, oral, Daily, First dose (after last modification) on Tue05/06/23 at 0900, Hold for diarrhea, Indications: constipationIndications:constipation Given 05/13/2023 8:36 AM [employer] 17 g Given 05/12/2023 7:27 AM [employer]INEER 17 g Given 2023 8:30 AM [employer] 17 g polyethylene glycol (MIRALAX) packet 17 g 17 g, oral, 2 times daily, First dose (after last modification) on Tue05/13/23 at 2100, Hold for diarrhea, Indications: constipationIndications:constipation Given 05/16/2023 9:31 AM [employer] 17 g Given 05/14/2023 8:22 AM [employer]ER 17 g potassium chloride (KLOR-CON) packet 20 mEq 20 mEq, feeding tube, Once, On Tue05/03/23 at 0030, For 1 dose, Dissolve one packet in at least 120 mL of cold water or other beverage prior to administration. Given 05/03/2023 12:22 AM [employer] 20 mEq potassium chloride (KLOR-CON) packet 20 mEq 20 mEq, feeding tube, Every 6 hours, First dose on Tue05/04/23 at 1200, Dissolve one packet in at least 120 mL of cold water or other beverage prior to administration. Given 05/05/2023 5:11 AM [employer] 20 m Eq Given 05/04/2023 11:00 PM [employer]ER 20 mEq Given 05/04/2023 5:42 PM [employer]INEER 20 mEq potassium chloride (KLOR-CON) packet 40 mEq 40 mEq, feeding tube, Once as needed, K < 4, Starting on Tue05/03/23 at 0731, For 1 dose, Dissolve one packet in at least 120 mL of cold water or other beverage prior to administration. Given 05/03/2023 11:50 AM [employer]ER 40 mEq potassium chloride (KLOR-CON) packet 40 mEq 40 mEq, feeding tube, Once, On Tue05/03/23 at 1515, For 1 dose, Dissolve one packet in at least 120 mL of cold water or other beverage prior to administration. Given 05/03/2023 3:07 PM [employer] 40 mEq potassium chloride (KLOR-CON) packet 40 mEq 40 mEq, feeding tube, Once, On Tue05/04/23 at 0600, For 1 dose, Dissolve one packet in at least 120 mL of cold water or other beverage prior to administration. Given 05/04/2023 6:00 AM [employer] 40 mEq potassium chloride (KLOR-CON) packet 40 mEq 40 mEq, feeding tube, Once, On Tue05/04/23 at 1945, For 1 dose, Dissolve one packet in at least 120 mL of cold water or other beverage prior to administration. Given 05/04/2023 7:58 PM [employer] 40 mEq potassium chloride (KLOR-CON) packet 40 mEq 40 mEq, oral, 2 times daily PRN, for K <4.5, Starting on Catarina 05/05/23 at 1251, Dissolve one packet in at least 120 mL of cold water or other beverage prior to administration. Given 05/05/2023 8:02 PM [employer] 40 mEq potassium chloride 20 mEq/50 mL in sterile water (premix) 20 mEq 20 mEq, intravenous, at 25 mL/hr, Administer over 2 Hours, Every 6 hours, First dose on Tue05/06/23 at 0700, Central line only, Indications: hypokalemiaIndications:hypokalemia New Bag 05/07/2023 6:12 AM [employer] 20 mEq 25 mL/hr Rate/Dose Verify 05/07/2023 3:00 AM [employer] 25 mL/h r New Bag 05/07/2023 1:05 AM [employer]ER 20 mEq 25 mL/hr potassium chloride 20 mEq/50 mL in sterile water (premix) 20 mEq 20 mEq, intravenous, at 25 mL/hr, Administer over 2 Hours, 2 times daily (for diuretics), First dose (after last reorder) on Tue05/09/23 at 0945, For 2 doses, Central line only, Indications: hypokalemiaIndications:hypokalem ia Rate/Dose Verify 05/09/2023 5:00 PM [employer] 25 mL/hr Rate/Dose Verify 05/09/2023 4:00 PM [employer] 25 mL/h r New Bag 05/09/2023 3:19 PM [employer]ER 20 mEq 25 mL/hr potassium chloride 40 mEq/100 mL in sterile water (premix) 40 mEq 40 mEq, intravenous, at 25 mL/hr, Administer over 4 Hours, Once, On Tue05/04/23 at 1000, For 1 dose, Central line only, Indications: hypokalemiaIndications:hypoka lemia New Bag 05/04/2023 11:22 AM [employer] 40 mEq 25 mL/hr potassium chloride 40 mEq/100 mL in sterile water (premix) 40 mEq 40 mEq, intravenous, at 25 mL/hr, Administer over 4 Hours, Once, On Tue05/04/23 at 1945, For 1 dose, Central line only, Indications: hypokalemiaIndications:hypoka lemia New Bag 05/04/2023 7:57 PM [employer] 40 mEq 25 mL/hr potassium chloride 40 mEq/100 mL in sterile water (premix) 40 mEq 40 mEq, intravenous, at 25 mL/hr, Administer over 4 Hours, Once, On Tue05/06/23 at 0230, For 1 dose, Central line only, Indications: hypokalemiaIndications:hypoka lemia Rate/Dose Verify 05/06/2023 2:00 AM [employer] 25 mL/hr New Bag 05/06/2023 1:53 AM [employer] 40 mEq 25 mL/hr potassium chloride 40 mEq/100 mL in sterile water (premix) 40 mEq 40 mEq, intravenous, at 25 mL/hr, Administer over 4 Hours, Once, On Tue05/06/23 at 0800, For 1 dose, Central line only, Indications: hypokalemiaIndications:hypokalemia New Bag 05/06/2023 8:15 AM [employer] 40 mEq 25 mL/hr potassium chloride 40 mEq/100 mL in sterile water (premix) 40 mEq 40 mEq, intravenous, at 25 mL/hr, Administer over 4 Hours, 2 times daily PRN, for K <4.5, Starting on Tue05/06/23 at 1149, Central line only, Indications: hypokalemiaIndications:hypokalemia New Bag 05/08/2023 7:38 PM [employer] 40 mEq 25 mL/hr New Bag 05/07/2023 9:45 PM [employer]ER 40 mEq 25 mL/hr Rate/Dose Verify 05/07/2023 1:00 AM [employer] 25 mL/h r potassium chloride 40 mEq/100 mL in sterile water (premix) 40 mEq 40 mEq, intravenous, at 25 mL/hr, Administer over 4 Hours, Daily, First dose (after last modification) on Tue05/07/23 at 1300, For 3 doses, Central line only, Indications: hypokalemiaIndications:hypokalemia New Bag 05/09/2023 8:36 AM [employer] 40 mEq 25 mL/hr New Bag 05/07/2023 2:13 PM [employer]ER 40 mEq 25 mL/hr potassium chloride 40 mEq/100 mL in sterile water (premix) 40 mEq 40 mEq, intravenous, at 25 mL/hr, Administer over 4 Hours, Once, On Tue05/09/23 at 0200, For 1 dose, Central line only, Indications: hypokalemiaIndications:hypokalem ia Rate/Dose Verify 05/09/2023 2:00 AM [employer] 25 mL/hr New 05/09/2023 1:30 AM [employer] ENGINEER 40 mEq 25 mL/hr potassium chloride 40 mEq/520 mL in sodium chloride 0.9% (premix) 40 mEq 40 mEq, intravenous, at 130 mL/hr, Administer over 4 Hours, Every 4 hours, First dose on Tue05/03/23 at 2045, For 2 doses, Total dose = 80 mEq, Indications: hypokalemiaIndications:hypokalemia New Bag 05/04/2023 1:45 AM [employer] 40 mEq 130 mL/hr New Bag 05/03/2023 9:00 PM [employer]ER 40 mEq 130 mL/hr potassium chloride 40 mEq/520 mL in sodium chloride 0.9% (premix) 40 mEq 40 mEq, intravenous, at 130 mL/hr, Administer over 4 Hours, Every 4 hours, First dose (after last reorder) on Tue05/04/23 at 0600, For 2 doses, Total dose = 80 mEq, Indications: hypokalemiaIndications:hypokalemia New Bag 05/04/2023 6:30 AM [employer] 40 mEq 130 mL/hr potassium chloride ER (KLOR-CON) extended release tablet 20 mEq 20 mEq, oral, Every 6 hours, First dose on Tue05/05/23 at 1345, Tablets should not be crushed, chewed, dissolved, or otherwise manipulated. Capsules may be opened and sprinkled on a spoonful of applesauce or pudding, but the contents of the capsule should not be crushed or chewed. Given 05/05/2023 1:53 PM [employer] 20 mEq potassium chloride ER (KLOR-CON) extended release tablet 20 mEq 20 mEq, oral, 2 times daily (for diuretics), First dose on Tue05/10/23 at 0915, For 2 doses, Tablets should not be crushed, chewed, dissolved, or otherwise manipulated. Capsules may be opened and sprinkled on a spoonful of applesauce or pudding, but the contents of the capsule should not be crushed or chewed. Given 05/10/2023 3:15 PM [employer] 20 mEq Given 05/10/2023 9:19 AM [employer] 20 mEq potassium, sodium phosphates (PHOS-NAK) 280-160-250 mg packet 1 packet 1 packet, oral, Once, On 05/11/23 at 0145, For 1 dose, Each packet contains elemental phosphorus 250 mg (8 mmol), potassium 280 mg (7.1 mEq), and sodium 160 mg (6.9 mEq). Given 2023 1:39 AM [employer]ER 1 packet potassium, sodium phosphates (PHOS-NAK) 280-160-250 mg packet 2 packet 2 packet, oral, Once, On Catarina 05/05/23 at 0145, For 1 dose, mg dosing is based on phosphorus component. Each packet contains 250 mg elemental phosphorus. Each packet contains elemental phosphorus 250 mg (8 mmol), potassium 280 mg (7.1 mEq), and sodium 160 mg (6.9 mEq). Given 05/05/2023 1:20 AM [employer]INEER 2 packets prochlorperazine (COMPAZINE) 10 mg/2 mL (5 mg/mL) injection - ADS Override Pull Starting on 05/07/23 at 1933, For 1 dose, Created by cabinet override prochlorperazine (COMPAZINE) injection 5 mg 5 mg, intravenous, Administer over 2 Minutes, Every 6 hours PRN, nausea, vomiting, 2nd line for n/v, Starting on 05/07/23 at 1933 Given 05/07/2023 7:36 PM [employer] 5 mg propofol (DIPRIVAN) 10 mg/mL infusion 0-80 mcg/kg/min ? 107.5 kg (0-51.6 mL/hr), 10 mg/mL, intravenous, Titrated, Starting on 05/02/23 at 2215, Until Tue05/04/23 at 0330, Titration instructions: Titrate, Initial dose: 10 mcg/kg/min, Titrate: Up/Down, Titrate by: 10 mcg/kg/min, Every: 10 minutes, Goal: RASS, RASS Goal: 0, -1, Do not administer through the same I.V. catheter with blood or plasma. Tubing and any unused portions of propofol vials should be discarded after 12 hours. Room temperature only, Routine Rate/Dose Verify 05/04/2023 4:00 AM [employer] 60 mcg/kg/min 38.7 mL/hr New Bag 05/04/2023 1:57 AM [employer]ER 60 mcg/kg/min 38.7 mL/hr New Bag 05/04/2023 12:27 AM [employer]ER 60 mcg/kg/min 38.7 mL/h r propofol (DIPRIVAN) 10 mg/mL infusion 0-50 mcg/kg/min ? 111.6 kg (0-33.48 mL/hr), 10 mg/mL, intravenous, Titrated, Starting on Tue05/06/23 at 2115, Until Tue05/06/23 at 2143, Titration instructions: Titrate, Initial dose: Other (comment) / 50 mcg/kg/min, Titrate: Up/Down, Titrate by: 10 mcg/kg/min, Every: 10 minutes, Goal: RASS, RASS Goal: -1, -2, -3, Do not administer through the same I.V. catheter with blood or plasma. Tubing and any unused portions of propofol vials should be discarded after 12 hours. Room temperature only, Routine New Bag 05/06/2023 9:33 PM [employer] 50 mcg/kg/min 33.5 mL/hr propofol (DIPRIVAN) 10 mg/mL infusion 0-100 mcg/kg/min ? 111.6 kg (0-66.96 mL/hr), 10 mg/mL, intravenous, Titrated, Starting on Tue05/06/23 at 2215, Until Tue05/07/23 at 0238, Titration instructions: Titrate, Initial dose: Other (comment) / 50 mcg/kg/min, Titrate: Up/Down, Titrate by: 10 mcg/kg/min, Every: 10 minutes, Goal: RASS, RASS Goal: -2, -3, Do not administer through the same I.V. catheter with blood or plasma. Tubing and any unused portions of propofol vials should be discarded after 12 hours. Room temperature only, Routine New Bag 05/07/2023 1:28 AM [employer] 20 mcg/kg/min 13.39 mL/hr Rate/Dose Change 05/07/2023 1:19 AM [employer]ER 30 mcg/kg/min 20.1 mL/hr Rate/Dose Change 05/07/2023 1:00 AM [employer]ER 40 mcg/kg/min 26.8 mL/hr propofoL (DIPRIVAN) 10 mg/mL IV 30 mg 30 mg, intravenous, Once as needed, other, for acute agitation while waking up on ventilator, Starting on Catarina 05/05/23 at 0918, For 1 dose, Do not administer through the same I.V. catheter with blood or plasma. Tubing and any unused portions of propofol vials should be discarded after 12 hours. Room temperature only Given 05/05/2023 9:34 AM [employer] 30 mg propranoloL (INDERAL) injection 1 mg 1 mg, intravenous, Once, On Tue05/09/23 at 0200, For 1 dose, For IV administration, do not exceed a rate of 1 mg/min. Given 05/09/2023 1:57 AM [employer] 1 mg propranoloL (INDERAL) injection 1 mg 1 mg, intravenous, Once, On Tue05/09/23 at 0215, For 1 dose, For IV administration, do not exceed a rate of 1 mg/min. Given 05/09/2023 3:22 AM [employer] 1 mg propranoloL (INDERAL) injection 1 mg 1 mg, intravenous, Once, On Tue05/09/23 at 0215, For 1 dose, For IV administration, do not exceed a rate of 1 mg/min. Given 05/09/2023 2:52 AM [employer]ER 1 mg QUEtiapine (SEROquel) tablet 100 mg 100 mg, oral, Nightly, First dose on 05/08/23 at 2100 Given 05/08/2023 8:05 PM [employer]ER 100 mg QUEtiapine (SEROquel) tablet 100 mg 100 mg, oral, Daily, First dose (after last modification) on Tu05/10/23 at 0900 Given 2023 8:30 AM [employer]ER 100 mg Given 05/10/2023 8:15 AM [employer] ENG[employer]ER 100 mg QUEtiapine (SEROquel) tablet 150 mg 150 mg, oral, Nightly, First dose on Tue05/09/23 at 2100 Given 05/10/2023 8:17 PM [employer]INEER 150 mg Given 05/09/2023 8:11 PM [employer] ENGINEER 150 mg QUEtiapine (SEROquel) tablet 25 mg 25 mg, oral, Once, On Catarina 05/05/23 at 1745, For 1 dose Given 05/05/2023 5:50 PM [employer] ENG[employer]ER 25 mg QUEtiapine (SEROquel) tablet 50 mg 50 mg, oral, Daily, First dose (after last modification) on Catarina 05/12/23 at 0900 Given 05/12/2023 7:26 AM [employer]ER 50 mg QUEtiapine (SEROquel) tablet 50 mg 50 mg, oral, Nightly, First dose (after last modification) on 05/16/23 at 2100 QUEtiapine (SEROquel) tablet 75 mg 75 mg, oral, Nightly, First dose (after last modification) on Tue05/11/23 at 2100 Given 05/15/2023 9:17 PM [employer]ER 75 mg Given 05/14/2023 9:27 PM [employer] ENGINEER 75 mg Given 05/13/2023 9:26 PM [employer] ENGINEER 75 mg rocuronium (ZEMURON) injection 120 mg 120 mg, intravenous, Once, On Tue05/06/23 at 2115, For 1 dose, Patient should receive adequate sedative/anesthetic agent before a paralytic agent is administered. WARNING: Causes respiratory paralysis. Patient must be ventilated., Indications: Muscle RelaxationIndications:Muscle Relaxation Given 05/06/2023 9:26 PM [employer]INEER 120 mg senna (SENOKOT) tablet 1 tablet 1 tablet, oral, 2 times daily, First dose on 05/01/23 at 1115, If able to swallow tablets. Hold for diarrhea., Indications: constipationIndications:constipation Given 05/02/2023 8:38 AM [employer] ENGINEER 1 table t Given 05/01/2023 10:01 PM [employer] ENGINEER 1 tablet Given 05/01/2023 11:33 AM [employer] ENGINEER 1 tablet senna 1.76 mg/mL syrup 8.8 mg 8.8 mg, feeding tube, 2 times daily, First dose on 05/01/23 at 1115, If receiving medications per tube. Hold for diarrhea., Indications: constipationIndications:constipation Given 05/05/2023 8:49 AM [employer]ER 8.8 mg Given 05/04/2023 8:04 PM [employer] ENGINEER 8.8 mg Given 05/04/2023 8:07 AM [employer] ENGINEER 8.8 mg senna 1.76 mg/mL syrup 8.8 mg 8.8 mg, oral, 2 times daily, First dose (after last modification) on Tue05/05/23 at 2100, If receiving medications per tube. Hold for diarrhea., Indications: constipationIndications:constipation Given 05/06/2023 8:21 AM [employer] 8.8 mg Given 05/05/2023 9:02 PM [employer] ENGINEER 8.8 mg senna-docusate (PERICOLACE) 8.6-50 mg per tablet 1 tablet 1 tablet, oral, 2 times daily, First dose (after last modification) on Tue05/11/23 at 2100 Given 05/13/2023 8:36 AM [employer] 1 tablet Given 05/12/2023 8:15 PM [employer] ENGINEER 1 tablet Given 05/12/2023 7:26 AM [employer] ENGINEER 1 tablet senna-docusate (PERICOLACE) 8.6-50 mg per tablet 2 tablet 2 tablet, oral, 2 times daily, First dose (after last modification) on Tue05/13/23 at 2100 Given 05/15/2023 8:52 AM [employer]ER 2 tablets Given 05/14/2023 8:23 AM [employer] ENGINEER 2 tablets sodium bicarbonate 8.4 % (1 mEq/mL) injection - ADS Override Pull Starting on Tue05/03/23 at 0929, For 1 dose, Created by cabinet override sodium bicarbonate 8.4 % (1 mEq/mL) injection 50 mEq 50 mEq, intravenous, Administer over 5 Minutes, Once, On Tue05/03/23 at 1000, For 1 dose Given 05/03/2023 9:34 AM ELECTRO OPTICS ENGINEER 50 mEq sodium bicarbonate 8.4 % (1 mEq/mL) injection 50 mEq 50 mEq, intravenous, Administer over 5 Minutes, Once, On Tue05/03/23 at 1215, For 1 dose Given 05/03/2023 11:50 AM ELECTRO OPT[employer] ENGINEER 50 mEq sodium chloride (OCEAN) 0.65 % nasal spray 2 spray 2 spray, each nostril, 3 times daily with meals, First dose on Tue05/03/23 at 1800 Given 05/05/2023 11:44 AM ELECTRO OPTICS ENGINEER 2 sprays Given 05/05/2023 8:52 AM ELECTRO OPTICS ENGINEER 2 sprays Given 05/04/2023 5:43 PM ELECTRO OPTICS ENGINEER 2 sprays sodium chloride (OCEAN) 0.65 % nasal spray 2 spray 2 spray, each nostril, Every 2 hours while awake, First dose (after last modification) on [place] 05/05/23 at 1600 Given 05/15/2023 9:58 PM ELECTRO OPTICS ENGINEER 2 sprays Given 05/15/2023 8:11 PM ELECTRO OPTICS ENGINEER 2 sprays Given 05/15/2023 8:55 AM ELECTRO OPTICS ENGINEER 2 sprays sodium chloride 0.9% 0.9% infusion - ADS Override Pull Starting on 05/01/23 at 0523, For 1 dose, Created by cabinet override sodium chloride 0.9% flush 0.5-20 mL 0.5-20 mL, intra-catheter, Every 8 hours scheduled, First dose on [place] 05/01/23 at 1400, Flush volume based on line type and size. Given 05/12/2023 2:03 PM ELECTRO OPTICS ENGINEER 10 mL Given 2023 1:57 PM ELECTRO OPTICS ENGINEER 10 mL Given 05/10/2023 8:19 PM ELECTRO OPT[employer] ENGINEER 10 mL sodium chloride 0.9% flush 0.5-20 mL 0.5-20 mL, intra-catheter, As needed, line care, Starting on [place] 05/01/23 at 1038, Flush volume based on line type and size. Flush before and after each use. Given 05/10/2023 6:39 AM ELECTRO OPT[employer] ENGINEER 10 mL sodium chloride 0.9% IVPB 0-250 mL 0-250 mL, intravenous, Once, On [place] 05/05/23 at 2030, For 1 dose, Prime blood tubing and administer amount needed to clear line (usually 50-100 mL) after transfusion complete. New Bag 05/05/2023 8:22 PM ELECTRO OPT[employer] ENGINEER 250 mL sodium chloride 0.9% IVPB 0-250 mL 0-250 mL, intravenous, Once, On [place] 05/05/23 at 2345, For 1 dose, Prime blood tubing and administer amount needed to clear line (usually 50-100 mL) after transfusion complete. New Bag 05/05/2023 11:35 PM ELECTRO OPT[employer] ENGINEER 250 mL sodium chloride 0.9% IVPB 0-250 mL 0-250 mL, intravenous, Once, On [place] 05/05/23 at 2345, For 1 dose, Prime blood tubing and administer amount needed to clear line (usually 50-100 mL) after transfusion complete. New Bag 05/05/2023 11:30 PM ELECTRO OPT[employer] ENGINEER 250 mL sodium chloride 0.9% IVPB 0-250 mL 0-250 mL, intravenous, Once, On [place] 05/12/23 at 0815, For 1 dose, Prime blood tubing and administer amount needed to clear line (usually 50-100 mL) after transfusion complete. New Bag 05/12/2023 8:45 AM ELECTRO OPT[employer] ENGINEER 250 mL sodium chloride 0.9% solution 3-12 mL/hr, intra-catheter, Continuous, Starting on Tue05/01/23 at 1115, Amount needed for invasive pressure monitoring with 300 mg Hg to maintain patency. Rate/Dose Verify 2023 3:00 PM ELECTRO OPT[employer] ENGINEER 6 mL/hr 6 mL/hr Rate/Dose Verify 2023 2:00 PM ELECTRO OPT[employer] ENGINEER 6 mL/hr 6 mL/hr Rate/Dose Verify 2023 1:00 PM ELECTRO OPT[employer] ENGINEER 6 mL/hr 6 mL/hr sodium chloride 0.9% solution 3-12 mL/hr, intra-catheter, Continuous, Starting on 05/02/23 at 2215, Amount needed for invasive pressure monitoring with 300 mg Hg to maintain patency. New Bag 05/10/2023 1:32 PM ELECTRO OPT[employer] ENGINEER 6 mL/hr 6 mL/hr New Bag 05/06/2023 10:00 AM ELECTRO OPT[employer] ENGINEER 6 mL/hr 6 mL/hr Rate/Dose Verify 05/02/2023 11:00 PM ELECTRO OPTICS ENGINEER 3 mL/hr 3 mL/h r sodium phosphate - potassium phosphate (K-PHOS NEUTRAL) tablet 250 mg 250 mg, oral, Once, On 05/07/23 at 0730, For 1 dose, Each tablet contains elemental phosphorus 250 mg (8 mmol), potassium 45 mg (1.1 mEq), and sodium 298 mg (13 mEq). Given 05/07/2023 8:00 AM ELECTRO OPT[employer] ENGINEER 250 m g tamsulosin (FLOMAX) extended release capsule 0.4 mg 0.4 mg, oral, Daily, First dose (after last modification) on Tue05/11/23 at 0530, Do not crush, chew, cut, dissolve, open or otherwise manipulate tablet/capsule. Given 05/16/2023 9:31 AM ELECTRO OPT[employer] ENGINEER 0.4 mg Given 05/15/2023 8:52 AM ELECTRO OPTICS ENGINEER 0.4 mg Given 05/14/2023 8:23 AM ELECTRO OPTICS ENGINEER 0.4 mg documented in this encounter Discontinued Medications Medication Sig Discontinue Reason Start Date End Da te QUEtiapine (SEROquel) 25 mg tablet Take 2 tablets (50 mg total) by mouth nightly Stop Taking at Discharge 05/16/2023 05/16/2023 documented as of this encounter Active and Recently Administered Medications Times are shown in E[employer]RO [employer] ENGINEER. Scheduled Medication Order 05/14/2023 05/15/2023 05/16/2023 acetaminophen (TYLENOL) tablet 1,000 mg 1,000 mg, oral, Every 6 hours scheduled, First dose (after last modification) on [place] 05/05/23 at 1800 0521 (Given - Provider: Gladys Dietz RN)1110 (Given - Provider: Db Harrison RN)1618 (Given - Provider: Db Harrison RN)2348 (Given - Provider: Gladys Dietz RN) 0553 (Given - Provider: Gladys Dietz RN)1233 (Given - Provider: Db Harrison RN)1611 (Given - Provider: Db Harrison RN) 0016 (Given - Provider: Gladys Dietz RN)0619 (Given - Provider: Gladys Dietz RN)1208 (Given - Provider: Nataliya English RN) aspirin chewable tablet 81 mg 81 mg, oral, Daily, First dose (after last modification) on Tue05/06/23 at 0900 0823 (Given - Provider: Db Harrison RN) 0852 (Given - Provider: Db Harrison RN) 0931 (Given - Provider: Nataliya English RN) carvediloL (COREG) tablet 12.5 mg 12.5 mg, oral, 2 times daily, First dose (after last modification) on Tue05/13/23 at 0900 0823 (Given - Provider: Db Harrison RN)2127 (Given - Provider: Venessa Keller RN) 0853 (Given - Provider: Db Harrison RN)2117 (Given - Provider: Gladys Dietz RN) 0931 (Given - Provider: Nataliya L. Amador, RN) gabapentin (NEURONTIN) capsule 300 mg 300 mg, oral, 3 times daily, First dose on Tue05/08/23 at 1015 0823 (Given - Provider: Db Harrison RN)1613 (Given - Provider: Db Harrison RN)2126 (Given - Provider: Venessa Keller RN) 0853 (Given - Provider: Db Harrison RN)161 (Given - Provider: Db Harrison RN)2116 (Given - Provider: Gladys Dietz RN) 0931 (Given - Provider: Nataliya English, BRIA)1614 (Given - Provider: Nataliya English, BRIA) heparin 5,000 unit/mL injection 5,000 Units 5,000 Units, subcutaneous, Every 8 hours scheduled, First dose on Tue05/03/23 at 1400, Indications: Deep Vein Thrombosis Prevention 0521 (Given - Provider: Gladys Dietz RN)1350 (Given - Provider: Db Harrison RN)214 (Given - Provider: Venessa Keller RN) 0553 (Given - Provider: Gladys Dietz RN)1416 (Given - Provider: Db Harrison RN)2116 (Given - Provider: Gladys Dietz RN) 0619 (Given - Provider: Gladys Dietz RN)1338 (Given - Provider: Nataliya English RN) lidocaine (ASPERCREME) 4 % patch 2 patch 2 patch, transdermal, Administer over 12 Hours, Daily, First dose (after last modification) on Tue05/13/23 at 2030, Apply to affected area: neck 0910 (Medication Removed - Provider: Db Harrison RN)2126 (Medication Applied - Provider: Venessa Keller, BRIA) 0855 (Medication Removed - Provider: Db Harrison RN)2115 (Medication Applied - Provider: Gladys Dietz RN - Comment: pt only wants one patch) 0932 (Medication Removed - Provider: Nataliya English RN) magnesium citrate oral solution 296 mL (COMPLETED) 296 mL, oral, Once, On Tue05/14/23 at 1030, For 1 dose 1106 (Given - Provider: Db Harrison RN) methocarbamoL (ROBAXIN) tablet 750 mg 750 mg, oral, 3 times daily, First dose (after last modification) on Tue05/15/23 at 0900 0852 (Given - Provider: Db Harrison RN)161 (Given - Provider: Db Harrison RN)2116 (Given - Provider: Gladys Dietz RN) 09 (Given - Provider: Nataliya English, BRIA)161 (Given - Provider: Nataliya English RN) polyethylene glycol (MIRALAX) packet 17 g 17 g, oral, 2 times daily, First dose (after last modification) on Tue05/13/23 at 2100, Hold for diarrhea, Indications: constipation 0822 (Given - Provider: Db Harrison RN)2141 (Not Given - Provider: Venessa Keller RN - Reason: Patient/family refused) 0854 (Not Given - Provider: Db Harrison RN - Reason: Patient/family refused)2118 (Not Given - Provider: Gladys Dietz RN - Reason: Patient/family refused) 09 (Given - Provider: Nataliya English RN) QUEtiapine (SEROquel) tablet 50 mg 50 mg, oral, Nightly, First dose (after last modification) on Tue05/16/23 at 2100 QUEtiapine (SEROquel) tablet 75 mg (CANCELED) 75 mg, oral, Nightly, First dose (after last modification) on Tue05/11/23 at 2100 2127 (Given - Provider: Venessa Keller RN) 2116 (Given - Provider: Gladys Dietz RN) senna-docusate (PERICOLACE) 8.6-50 mg per tablet 2 tablet 2 tablet, oral, 2 times daily, First dose (after last modification) on Tue05/13/23 at 2100 0823 (Given - Provider: Db Harrison RN)2141 (Not Given - Provider: Venessa Keller RN - Reason: Patient/family refused) 0852 (Given - Provider: Db Harrison RN)2118 (Not Given - Provider: Gladys Dietz RN - Reason: Patient/family refused) 0931 (Not Given - Provider: Nataliya English RN - Reason: Patient/family refused) sodium chloride (OCEAN) 0.65 % nasal spray 2 spray 2 spray, each nostril, Every 2 hours while awake, First dose (after last modification) on [place] 05/05/23 at 1600 0603 (Given - Provider: Gladys Dietz RN)0827 (Given - Provider: Db Harrison RN)1000 (Given - Provider: Db Harrison RN)1111 (Given - Provider: Db Harrison RN)1351 (Given - Provider: Db Harrison RN)1616 (Given - Provider: Db Harrison RN)1748 (Not Given - Provider: Db Harrison RN - Reason: Patient/family refused)1934 (Given - Provider: Gladys Dietz RN)2349 (Given - Provider: Gladys Dietz RN) 0555 (Not Given - Provider: Gladys Deitz RN - Reason: Patient/family refused)0855 (Given - Provider: Db Harrison RN)1000 (Not Given - Provider: Db Harrison RN - Reason: Patient/family refused)1234 (Not Given - Provider: Db Harrison RN - Reason: Patient/family refused)1412 (Not Given - Provider: Db Harrison RN - Reason: Patient/family refused)1613 (Not Given - Provider: Db Harrison RN - Reason: Patient/family refused)1710 (Not Given - Provider: Db Harrison RN - Reason: Patient/family refused)2011 (Given - Provider: Gladys Dietz RN)2158 (Given - Provider: Gladys Dietz RN) 0627 (Not Given - Provider: Gladys Dietz RN - Reason: Patient/family refused)0806 (Not Given - Provider: Nataliya English RN - Reason: Patient/family refused)0918 (Not Given - Provider: Nataliya English RN - Reason: Patient/family refused)1124 (Not Given - Provider: Nataliya English RN - Reason: Patient/family refused)1328 (Not Given - Provider: Nataliya English RN - Reason: Patient/family refused)1557 (Not Given - Provider: Nataliya English RN - Reason: Patient/family refused) tamsulosin (FLOMAX) extended release capsule 0.4 mg 0.4 mg, oral, Daily, First dose (after last modification) on Tue05/11/23 at 0530, Do not crush, chew, cut, dissolve, open or otherwise manipulate tablet/capsule. 0823 (Given - Provider: Db Harrison RN) 0852 (Given - Provider: Db Harrison RN) 0931 (Given - Provider: Nataliya English RN) PRN Medication Order 05/14/2023 05/15/2023 05/16/2023 albuterol HFA (PROVENTIL HFA,VENTOLIN HFA,PROAIR HFA) 90 mcg/actuation inhaler 2 puff 2 puff, inhalation, Every 4 hours PRN (incident response coordinator), wheezing, Starting on [place] 05/05/23 at 1249 camphor-menthoL (SARNA) 0.5-0.5 % lotion topical, Every 6 hours PRN, itching, Starting on Tue05/08/23 at 0435, Apply to affected area: other Carrier Fluids for Secondary Infusion - 0.9% Sodium Chloride 30 mL, intravenous, As needed, For priming tubing and/or flushing, Starting on Tue05/02/23 at 2126, 0-250ml/hr to flush line after IV infusions when no maintenance IV ordered. Infuse 30mL at the same rate as the secondary infusion. Run as primary IV, not intended for KVO hydrOXYzine (ATARAX) tablet 25 mg 25 mg, oral, 4 times daily PRN, anxiety, Starting on [place] 05/12/23 at 1931 2117 (Given - Provider: Gladys Dietz, BRIA) ioversoL (OPTIRAY 350) syringe 125 mL (COMPLETED) 125 mL, intravenous, Once in imaging, contrast, Starting on Tue05/16/23 at 1023, For 1 dose 1029 (Contrast Given - Provider: Jackie Garay, RT) methocarbamoL (ROBAXIN) tablet 750 mg (CANCELED) 750 mg, oral, 3 times daily PRN, muscle spasms, espeically back pain, Starting on Tue05/13/23 at 1959 0823 (Given - Provider: Db Harrison, BRIA)1614 (Given - Provider: Db Harrison RN) ondansetron ODT (ZOFRAN-ODT) disintegrating tablet 4 mg 4 mg, oral, Every 4 hours PRN, nausea, Starting on 05/16/23 at 1034 oxyCODONE (ROXICODONE) tablet 10 mg 10 mg, oral, Every 3 hours PRN, 1st line for pain, Starting on Tue05/08/23 at 1200, Indications: Pain 0217 (Given - Provider: Gladys Dietz RN)0545 (Given - Provider: Gladys Dietz RN)1110 (Given - Provider: Db Harrison RN)1615 (Given - Provider: Db Harrison RN)2135 (Given - Provider: Venessa Keller RN) 0346 (Given - Provider: Gladys Dietz RN)0853 (Given - Provider: Db Harrison RN)1233 (Given - Provider: Db Harrison RN)1611 (Given - Provider: Db Harrison RN)2117 (Given - Provider: Gladys Dietz RN) 0625 (Given - Provider: Gladys Dietz RN)1208 (Given - Provider: Nataliya English RN) documented in this encounter Orders Medications Ordered That Gerardo ht Not Have Been Administered Count Last Ordered Date First Ordered Date ondansetron ODT (ZOFRAN-ODT) disintegrating tablet 4 mg 1 05/16/2023 QUEtiapine (SEROquel) tablet 50 mg 3 202205/05/2023 Lactated Ringer's (LR) bolus 1,000 mL 2 05/01/2023 tamsulosin (FLOMAX) extended release capsule 0.4 mg 1 2023 bisacodyL (DULCOLAX) suppository 10 mg 1 lidocaine (ASPERCREME) 4 % patch 2 patch 1 05/10/2023 senna-docusate (PERICOLACE) 8.6-50 mg per tablet 2 tablet 1 05/10/2023 haloperidol (HALDOL) injection 10 mg 2 04/2905/08/2023 lidocaine in dextrose 5% 2 g /250 mL (8 mg/mL) infusion (premix) 1 05/09/2023 midazolam (VERSED) 1 mg/mL injection 2 mg 1 05/09/2023 niCARdipine in 0.9% sodium c hloride (CARDENE) 25,000 mcg/50 mL (500 mcg/mL) infusion (premix) - ADS Override Pull 1 05/09/2023 potassium chloride 40 mEq/10 0 mL in sterile water (premix) 40 mEq 1 05/09/2023 fentaNYL (SUBLIMAZE) bolus from bag 50 mcg 3 05/06/2023 05/03/2023 fentaNYL (SUBLIMAZE) preserv ative free injection 100 mcg 1 05/06/2023 phenylephrine (KARLI-SYNEPHRIN E) 1 mg/10 mL (100 mcg/mL) in sodium chloride 0.9% (premix) - ADS Override Pull 2 05/06/2023 propofoL (DIPRIVAN) 10 mg/mL IV 200 mg 1 albuterol HFA (PROVENTIL HFA ,VENTOLIN HFA,PROAIR HFA) 90 mcg/actuation inhaler 2 puff 2 05/05/2023 bumetanide (BUMEX) 0.25 mg/m L injection 2 mg 2 05/05/2023 carvediloL (COREG) tablet 50 mg 1 HYDROmorphone (DILAUDID) injection 0.5 mg 3 05/05/2023 05/02/2023 lidocaine (XYLOCAINE) 10 mg/ mL (1 %) injection 50 mg 1 05/05/2023 lidocaine (XYLOCAINE) 20 mg/ mL (2 %) injection 200 mg 1 05/05/2023 lidocaine PF (XYLOCAINE) 10 mg/mL (1 %) preservative free injection - ADS Override Pull 1 05/05/2023 lidocaine PF (XYLOCAINE) 10 mg/mL (1 %) preservative free injection 200 mg 1 05/05/2023 lisinopriL (PRINIVIL,ZESTRIL) tablet 20 mg 2 05/05/2023 metoprolol (LOPRESSOR) tablet 100 mg 2 11/202205/04/2023 potassium chloride (KLOR-CON ) packet 20 mEq 3 05/05/2023 05/03/2023 potassium chloride (KLOR-CON ) packet 40 mEq 1 05/04/2023 furosemide (LASIX) 10 mg/mL injection 40 mg 1 05/03/2023 furosemide (LASIX) 200 mg in sodium chloride 0.9% 100 mL (2 mg/mL) infusion 1 05/03/2023 docusate sodium (COLACE) capsule 100 mg 1 1 07/03/2022 esmolol in 0.9% sodium chlor radha (BREVIBLOC) 2,000 mg/100 mL (20 mg/mL) infusion (premix) 1 05/02/2023 heparin in 0.9% sodium chlor radha 2,000 unit/1,000 mL (2 unit/mL) infusion (premix) 1 05/02/2023 HYDROmorphone (DILAUDID) injection 0.2 mg 1 05/02/2023 ioversoL (OPTIRAY 320) injection 1 05/02/20 nitroglycerin injection 100 mcg/mL in D5W 10 mL 1 05/02/2023 oxyCODONE (ROXICODONE) tablet 5 mg 1 2022 oxymetazoline (AFRIN) 0.05 % nasal spray 2 spray 1 05/02/2023 potassium chloride 20 mEq/50 mL in sterile water (premix) 20 mEq 2 05/02/2023 sodium chloride 0.9% irrigation 1 verapamiL (ISOPTIN) injection 1 05/02/2023 dextrose (D10W) 10% bolus 250 mL 1 05/01/20 23 dextrose gel in packet 15 g 1 05/01/2023 droPERidol (INAPSINE) injection 0.625 mg 1 05/01/2023 esmolol in 0.9% sodium chlor radha (BREVIBLOC) 2,500 mg/250 mL (10 mg/mL) infusion (premix) - ADS Override Pull 1 05/01/2023 glucagon injection 1 mg 1 05/01/2023 insulin lispro (HumaLOG, ADM ELOG) 100 unit/mL injection 1-3 Units 1 05/01/2023 Lab Orders Without Results Count Last Ordered D ate First Ordered Date HEPATIC FUNCTION PANEL 1 05/10/2023 POC BLOOD GAS AND CHEMISTRIES, ARTERIAL 1 1 07/06/2022 TSH REFLEX TO FREE T4 1 05/03/2023 POCT GLUCOSE DEVICE 5 05/02/2023 05/01/20 Imaging Orders Without Results Count Last Order ed Date First Ordered Date EXTUBATION 1 05/05/2023 RT COMMUNICATION 1 05/04/2023 General Supply Count Last Ordered Date First Or dered Date WALKER 1 05/16/2023 WALKER W/ WHEELS (LESS THAN 350 LBS.) 1 Diet Count Last Ordered Date First Orde red Date ADULT DISCHARGE DIET 1 05/16/2023 Nursing Count Last Ordered Date First Orde red Date DISCHARGE ACTIVITY 4 05/16/2023 DISCHARGE CALL PROVIDER 1 05/16/2023 DISCHARGE DRESSING 1 05/16/2023 DISCHARGE INSTRUCTIONS 1 05/16/2023 FOLLOW UP WITH ESTABLISHED PROVIDER 1 05/16 STRAIGHT CATH 2 05/15/2023 05/10/2023 HUTTON CATHETER - DISCONTINUE 2 05/14/2023 05/10/2023 NURSING COMMUNICATION 5 05/14/20232022 TELEMETRY MONITORING 1 05/13/2023 DISCONTINUE VASCULAR ACCESS (SPECIFY) 4 05/07/2023 INSERT HUTTON CATHETER 1 2023 WEIGH PATIENT 1 05/01/2023 Consult Count Last Ordered Date First Orde red Date PHARMACY COMMUNICATION 1 05/09/2023 IP CONSULT TO NEUROLOGY 1 05/06/2023 IP CONSULT TO CARDIOLOGY 1 05/05/2023 IP CONSULT TO NEUROSURGERY 1 05/05/2023 IP CONSULT TO SOCIAL WORK 1 05/05/2023 IP CONSULT TO CARDIAC SURGERY 1 05/02/2023 IP CONSULT TO VASCULAR SURGERY 1 05/01/2023 Admission Count Last Ordered Date First Orde red Date ADMIT TO INPATIENT 1 05/01/2023 Transfer Count Last Ordered Date First Orde red Date TRANSFER PATIENT TO NEW UNIT 1 05/13/2023 Discharge Count Last Ordered Date First Orde red Date DISCHARGE PATIENT 1 05/16/2023 CORE MEASURES Count Last Ordered Date First Ord ered Date REASON FOR NO VTE PROPHYLAXI S - HOSPITAL ADMISSION - MEDICATIONS 2 05/02/2023 05/01/2023 documented in this encounter Care Teams Migratory Worker Relationship Specialty Start Date End Date Unknown, Notinfile PCP - General 04/30/23 06/05/23 Faustino Herrera MD [id number] [place] [address] Surgeon Vascular Surgery 05/16/23 documented as of this encounter
--- OUTSIDE RECORDS SUMMARY | 2024-05-30 05:40 | XMS_ITS | Encounter Summary ---
Author Organization [facility] Address [address] [place] [address] Phone Care Team Providers Care Electrical Transmission Engineer Name Role Phone Unknown, Notinfile Primary Care Provider Unavail able Leo Manzano MD Unavailable [phone] Carl Strickland MD Primary Care Provider Reason for Visit * Reason Onset Date Comments Inpt Consult 05/09/2023 Encounter Details Date Type Department Care Team (Late st Contact Info) Description 05/09/2023 Telephone [facility] [address] [address] [facility] [address] [place] [address] [place] [address] Joaquín Abarca MD [address] [facility] [address] [place] [address] Inpt Consult Social History Tobacco Use Types Packs/Day Years Used Date Smoking Tobacco: Never Smokeless Tobacco: Never [facility] Utilities Answer Date Recorded In the past 12 months has [employer], gas, oil, or water company threatened to [...] often do you attend chur ch or catholic services? More than 4 times per year [...] or slept in a prison (including now)? No 06/08/2023 Personal Safety Answer Date Recorded Getting School Help Needed Denies 05/09 Sex and Gender Information Value Date Recorded Sex Assigned at Not on file Legal Sex Male 3:42 AM RAWHIDE BONE ROLLER Gender Identity Not on file Sexual Orientation Straight 06/12/2023 11 :43 PM RAWHIDE BONE ROLLER documented as of this encounter Miscellaneous Notes * Telephone Encounter - Mariah Case RN - 05/09/2023 12:31 PM CST I spoke with Dr. Zabala. She reports a consult was placed on Tuesday, with request from Dr Manzano to ask for Dr. Abarca consult.. Pt had a dissection, TEVAR repair. I informed her that Dr. Abarca is in clinic all day, but would inform him of request. IDE BONE ROLLER * Telephone Encounter - Elisabeth Eid - 05/09/2023 12:21 PM CST Rima [facility] [address] ICU, (Call Resident Vj) Would like to speak to someone regarding this consult that was assigned to Rima. IDE BONE ROLLER documented in this encounter Plan of Treatment Not on file documented as of this encounter Visit Diagnoses Not on filedocumented in this encounter Care Teams Electrical Transmission Engineer Relationship Specialty Start Date End Date Unknown, Notinfile PCP - General 04/30/23 06/05/23 Carl Strickland MD [address] [facility] [address] [place] [address] PCP - General Internal Medicine 06/06/23 Leo Manzano MD [address] [facility] [id number] [place] [address] Surgeon Vascular Surgery 05/16/23 documented as of this encounter
--- OUTSIDE RECORDS SUMMARY | 2024-05-30 05:41 | XMS_ITS | Encounter Summary ---
Author Organization [facility] Healthcare Address [address] [place] [address] Care Team Providers Care Invoice Checker Name Role Phone Unknown, Notinfile Primary Care Provider Unavail able Reason for Visit * Reason Comments Chest Pain * Auth/Cert (Routine) Specialty Diagnoses / Procedures Referred By Fernando t Referred To Contact Diagnoses Dissection of aorta, unspecified portion of aorta (HCC) Hypertension, unspecified type Class 1 obesity with body mass index (BMI) of 30.0 to 30.9 in adult, unspecified obesity type, unspecified whether serious comorbidity present AORTIC DISSECTION TYPE B Procedures na Referral ID Status Reason Start Date Expiration Date Visits Re quested Visits Authorized [id number] 1 1 Encounter Details Date Type Department Care Team (Late st Contact Info) Description 05/02/2023 3:17 PM DYE BOARDING MACHINE OPERATOR - 05/02/2023 7:52 PM DYE BOARDING MACHINE OPERATOR Surgery [facility] Operating Room [address] [place] [address] Faustino Herrera MD [id number] [place] [address] THORACIC ENDOVASCULAR REPAIR - AORTIC Surgery Details Date/Time Status Location OR Service Patient Class Case Cl ass Case Type Trauma Case? 05/02/2023 3:17 PM Posted [facility] OR POD 3 314 Vascular Inpatient Elective Panel 1 Procedure LRB Anes Op Region Wound Class Comments THORACIC ENDOVASCULAR REPAIR - AORTIC N/A General Chest Class I - Clean PLACEMENT STENT - SUBCLAVIAN ARTERY - HYBRID ROOM Left Choice Chest Class I - Clean CAUTERIZATION with silver nitrate stick on anterior active oozing area. packed with gelfoam and surgicel. Second attempt of suctioning, floseal 10, and surgicel packing of right nare. Left General Nose Class II - Clean Contaminated Surgeon Surgeon Role Service Panel Faustino Herrera MD Primary Vascular 1 Rosey Fine MD Fellow Vascular 1 Ann Goldstein MD Fellow Vascular 1 Brynn Lazo MD Resident - Assisting Minor Procedures 1 Teagan Kwong MD Fellow Otolaryngology 1 Teagan Kwong MD Fellow Otolaryngology 1 documented in this encounter Social History Tobacco Use Types Packs/Day Years Used Date Smoking Tobacco: Never Smokeless Tobacco: Never Tobacco Cessation:Counseling Given: Not Answered Sex and Gender Information Value Date Recorded Sex Assigned at Not on file Legal Sex Male 3:42 AM DYE BOARDING MACHINE OPERATOR Gender Identity Not on file Sexual Orientation Straight 06/12/2023 11 :43 PM DYE BOARDING MACHINE OPERATOR documented as of this encounter Last Filed Vital Signs Vital Sign Reading Time Taken Comments Blood Pressure 106/54 05/02/2023 4:00 PM DYE BOARDING MACHINE OPERATOR Pulse 75 05/02/2023 4:00 PM DYE BOARDING MACHINE OPERATOR Temperature 36.9 ??C (98.4 ??F) 05/02/2023 4:00 PM CS T Respiratory Rate 13 05/02/2023 4:00 PM DYE BOARDING MACHINE OPERATOR Oxygen Saturation 95% 05/02/2023 4:00 PM DYE BOARDING MACHINE OPERATOR Inhaled Oxygen Concentration - - Weight 107.5 kg (236 lb 15.9 oz) 2022 10:29 AM DYE BOARDING MACHINE OPERATOR Height 175.3 cm (5' 9 ) 05/01/2023 10:2 9 AM DYE BOARDING MACHINE OPERATOR Body Mass Index 32.3 05/06/2023 2:31 AM DYE BOARDING MACHINE OPERATOR documented in this encounter Discharge Summaries * Meron Parekh NP - 05/16/2023 10:56 AM CST Inpatient Discharge Summary BRIEF OVERVIEW Admitting Provider: Faustino Herrera MD Discharge Provider: Faustino Herrera MD Primary Care Physician at Discharge: Unknown, Notinfile None Admission Date: 05/01/2023 Discharge Date: 05/16/2023 Admission Location: [facility] Problems/Diagnoses: Principal Problem: Dissection of aorta, unspecified [...] around 1AM with symptoms and presented to [facility], [place]. 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 [...] of walker?: Yes DME services provided by: [facility] Discharge Medications: Current Medications TAKE these medications [...] Time Provider Department Center 06/06/2023 4:00 PM [facility] BCT4 [facility] N CT [facility] Main IM 06/07/2023 3:30 PM Faustino Herrera MD VASC CAM 8B [facility] 06/21/2023 1:00 PM Lydia Barillas, STATISTICIAN THEORETICAL URO [facility] MOB1 [facility] Contact Information for Follow-ups [facility] (All Locations) Next Steps: Follow up Comments: Urinary retention when hospitalized, improved with flomax starting Questions: Please select the performing region: [facility] (All Locations) # of visits: 1 Referral Status: Pending Authorization Faustino Herrera MD Specialty: Vascular Surgery, General Surgery Relationship: Surgeon Libra CURRY [id number] [facility] [address] Next Steps: Follow up Comments: Follow up with established provider: [address] scan and office visit. Questions: To provider: FAUSTINO HERRERA Cosigned by Faustino Herrera MD at 05/16/2023 3:40 PM DYE BOARDING MACHINE OPERATOR BOARDING MACHINE OPERATOR BOARDING MACHINE OPERATOR documented in this encounter Medications at [...] 05/16/2023 3:23 PM CST Fr Timmy Rosales [phone] 05/16/23 1500 Time Spent Start Time 1300 Stop Time 1310 Time Calculation (min) 10 min Patient Spiritual Assessment Spirituality Assessed Yes Voodoo Affiliation Baptist Active in Faith Yes Spiritual Needs Communion;Prayer Clinical Encounter Type Visited With Patient and family together Response Type Continuing visit Routine Visit Follow-up Continue Visiting Yes Sacramental Encounters Communion Patient wants communion Communion Given Indicator Yes Outcomes and Progress Aligning care with patient's values Achieved Preserve dignity and respect Achieved Demonstrating care and respect Achieved Interventions Interventions Active listening;Offer spiritual/pentecostalism support;Prayer (Benediction) BOARDING MACHINE OPERATOR * Meron Parekh NP - 05/16/2023 10:27 AM CST Vascular Surgery Daily Progress Patient Name/MRN: Eriberto Chau [id number] Treatment Team: Vascular Surgery Attending: Faustino Herrera MD Today's Date: 05/16/2023 Room/Bed: [place] [id number] Admit Date: 05/01/2023 Code Status: Full Code Subjective Chief complaint: abdominal pain Events During This Hospitalization: 32M PMH uncontrolled HTN (non-adherence) p/w acute CP, abd pain, and SOB x 6 hours. Woke up around 1AM with symptoms and presented to [facility], [place]. 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 [...] mg 1,000 mg oral Q6H SUSAN Dustin Souza DO 1,000 mg at 05/16/23 0619 albuterol HFA (PROVENTIL HFA,VENTOLIN HFA,PROAIR HFA) 90 mcg/actuation inhaler 2 puff 2 puff inhalation Q4H PRN (RT) Dustin Souza DO aspirin chewable tablet 81 mg 81 mg oral Daily Dustin Souza DO 81 mg at 12/18/23 0931 camphor-menthoL (SARNA) 0.5-0.5 % lotion topical Q6H PRN Dustin Souza, DO Given at 05/08/23 0535 Carrier Fluids for Secondary Infusion - 0.9% Sodium Chloride 30 mL intravenous PRN Dustin Souza, DO 30 mL at 05/03/23 0855 carvediloL (COREG) tablet 12.5 mg 12.5 mg oral BID Dustin Souza, DO 12.5 mg at 05/16/23 0931 gabapentin (NEURONTIN) capsule 300 mg 300 mg oral TID Dustin Souza, DO 300 mg at 05/16/23 0931 heparin 5,000 unit/mL injection 5,000 Units 5,000 Units subcutaneous Q8H SUSAN Dustin Souza, DO 5,000 Units at 05/16/23 0619 hydrOXYzine (ATARAX) tablet 25 mg 25 mg oral QID PRN Dustin Souza, DO 25 mg at 05/15/23 2117 lidocaine (ASPERCREME) 4 % patch 2 patch 2 patch transdermal Daily Gonzalez Johns MD 1 patch at 05/15/23 211 methocarbamoL (ROBAXIN) tablet 750 mg 750 mg oral TID Heber Randolph MD 750 mg at 05/16/23 0931 ondansetron ODT (ZOFRAN-ODT) disintegrating tablet 4 mg 4 mg oral Q4H PRN Meron Parekh NP oxyCODONE (ROXICODONE) tablet 10 mg 10 mg oral Q3H PRN Dustin Souza, DO 10 mg at 05/16/23 0625 polyethylene [...] spray each nostril Q2H while awake Dustin Souza, DO 2 spray at 05/15/23 2158 tamsulosin (FLOMAX) extended release capsule 0.4 mg 0.4 mg oral Daily Dustin Souza, DO 0.4 mg at 05/16/23 0931 Objective [...] Faustino Herrera MD at 05/16/2023 11:24 AM DYE BOARDING MACHINE OPERATOR BOARDING MACHINE OPERATOR BOARDING MACHINE OPERATOR * Timmy Rosales - 05/15/2023 4:39 PM CST Fr Timmy Rosales [phone] 05/15/23 1600 Time Spent Start Time 1320 Stop Time 1330 Time Calculation (min) 10 min Patient Spiritual Assessment Spirituality Assessed Yes Voodoo Affiliation Baptist Active in Faith Yes Spiritual Needs Communion;Prayer Clinical Encounter Type Visited With Patient and family together Response Type Continuing visit Routine Visit Follow-up Continue Visiting Yes Sacramental Encounters Communion Patient wants communion Communion Given Indicator Yes Outcomes and Progress Aligning care with patient's values Achieved Preserve dignity and respect Achieved Demonstrating care and respect Achieved Interventions Interventions Active listening;Offer spiritual/pentecostalism support;Prayer (Benediction) BOARDING MACHINE OPERATOR * Sonia Clayton MD - 05/15/2023 7:39 AM CST Vascular Surgery Daily Progress Patient Name/MRN: Eriberto Chau [id number] Treatment Team: Vascular Surgery Attending: Faustino Herrera MD Today's Date: 05/15/2023 Room/Bed: [id number] Admit Date: 05/01/2023 Code Status: Full Code Subjective Chief complaint: abdominal pain Events During This Hospitalization: [place] 05/01 Sx TBAD 32M PMH uncontrolled HTN (non-adherence) p/w acute CP, abd pain, and SOB x 6 hours. Woke up around 1AM with symptoms and presented to [facility]. 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 [...] labs wnl Events Over Last 24 Hours: NASEEM RANDLE Void check not passed and straight hutton x1 Void check again at 11am this AM Allergies Allergen Reactions Amoxicillin Hives Current Facility-Administered Medications Medication Dose Route Frequency Provider Last Rate Last Admin acetaminophen (TYLENOL) tablet 1,000 mg 1,000 mg oral Q6H [facility] Dustin Souza DO 1,000 mg at 05/15/23 0553 albuterol [...] Dustin Souza DO 12.5 mg at 05/14/23 212 gabapentin (NEURONTIN) capsule 300 mg 300 mg oral TID Dustin Souza DO 300 mg at 05/14/23 2127 heparin 5,000 unit/mL injection 5,000 Units 5,000 Units subcutaneous Q8H SUSAN Dustin Souza DO 5,000 Units at 05/15/23 0553 hydrOXYzine (ATARAX) tablet 25 mg 25 mg [...] spray each nostril Q2H while awake Dustin Souza, DO 2 spray at 05/14/23 5599 tamsulosin (FLOMAX) extended release capsule 0.4 mg 0.4 mg oral Daily Dustin Souza, DO 0.4 mg at 05/14/23 0823 Objective Vitals: 24hr Min/Max: Temp Min: 36.5 ??C (97.7 ??F) Max: 38.1 ??C (100.6 ??F) Pulse Min: 72 Max: 90 BP Min: 131/65 Max: 151/85 Resp Min: 16 Max: 20 SpO2 Min: 95 % Max: 98 % Most Recent : Vitals: 05/15/23 0325 BP: 148/61 Pulse: 79 Resp: 20 Temp: [...] s/s bleeding Dissection of thoracoabdominal aorta (CMS/HCC) ([facility]) Assessment & Plan Patient presented on 05/01 [...] Faustino Herrera MD at 05/16/2023 7:44 AM DYE BOARDING MACHINE OPERATOR BOARDING MACHINE OPERATOR BOARDING MACHINE OPERATOR * Sonia Clayton MD - 05/14/2023 3:17 PM CST Vascular Surgery Daily Progress Patient Name/MRN: Eriberto Chau [id number] Treatment Team: Vascular Surgery Attending: Faustino Herrera MD Today's Date: 05/14/2023 Room/Bed: [id number] Admit Date: 05/01/2023 Code Status: Full Code Subjective Chief complaint: abdominal pain Events During This Hospitalization: [place] 05/01 Sx TBAD 32M PMH uncontrolled HTN (non-adherence) p/w acute CP, abd pain, and SOB x 6 hours. Woke up around 1AM with symptoms and presented to [facility], [place]. 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 [...] 1,000 mg 1,000 mg oral Q6H [facility] Dustin Souza DO 1,000 mg at 05/14/23 [...] 5,000 Units 5,000 Units subcutaneous Q8H [facility] Dustin Souza DO 5,000 Units at 05/14/23 1350 hydrOXYzine (ATARAX) tablet 25 mg 25 mg oral QID PRN Dustin Souza DO 25 mg at 05/13/23 2126 lidocaine (ASPERCREME) 4 % patch 2 patch 2 patch transdermal Daily Gonzalez Johns MD 2 patch at 05/13/232124 methocarbamoL (ROBAXIN) tablet 750 mg 750 mg [...] Faustino Herrera MD at 05/14/2023 4:44 PM DYE BOARDING MACHINE OPERATOR BOARDING MACHINE OPERATOR BOARDING MACHINE OPERATOR * Gonzalez Johns MD - 05/13/2023 6:55 [...] than 180. - Neurology following. - PT/OT. BOARDING MACHINE OPERATOR * Kim Bello, PT - 05/13/2023 11:33 [...] treatment team and contact the PT or PEDIATRIC INTENSIVE PHYSICIAN currently assigned to this patient. If a physical therapy clinician is not assigned to this patient, please call [phone]. 05/13/23 8773 PT Last Visit Session Type Treatment PT [...] independence with functional mobility. 05/10/23 05/20/23 -- BOARDING MACHINE OPERATOR * Tegan Dye, OT - 05/13/2023 8:03 [...] not assigned to this patient, please call [phone]. 05/13/23 0803 General Session Type Treatment OT [...] Details: Pt will be independent in ADLS BOARDING MACHINE OPERATOR * Flex Parsons MD - 05/13/2023 5:47 AM CST Vascular Surgery Daily Progress Patient Name/MRN: Eriberto Chau [id number] Treatment Team: Vascular Surgery- Pager: [phone] Attending: Faustino Herrera MD Today's Date: 05/13/2023 Room/Bed: [id number] Admit Date: 05/01/2023 Code Status: Full Code [...] the false lumen. He was transferred to [facility] for further evaluation and treatment. Here, he [...] All feel these findings not to be 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 uniforms of a type a dissection, therefore no [...] PT/OT - TTF Flex Parsons MD, MSc [phone] For patients or family members viewing this note through [employer] programs: This note was written as a [...] Faustino Herrera MD at 05/14/2023 4:44 PM DYE BOARDING MACHINE OPERATOR BOARDING MACHINE OPERATOR BOARDING MACHINE OPERATOR * Nando Mijares MD - 05/13/2023 12:18 [...] oral, TID heparin, 5,000 Units, subcutaneous, Q8H [facility] lidocaine, 1 patch, transdermal, Daily polyethylene glycol, 17 g, oral, Daily QUEtiapine, 75 mg, oral, Nightly senna-docusate, 1 tablet, oral, BID sodium chloride, 2 spray, each nostril, Q2H while awake sodium chloride 0.9%, 0.5-20 mL, intra-catheter, Q8H [facility] tamsulosin, 0.4 mg, oral, Daily Continuous Infusions: [...] Dalton Locke MD at 05/13/2023 12:59 PM DYE BOARDING MACHINE OPERATOR BOARDING MACHINE OPERATOR BOARDING MACHINE OPERATOR Associated attestation - Dalton Locke MD - 05/13/2023 12:59 PM DYE BOARDING MACHINE OPERATOR Attending Documentation: I have seen and examined this critically ill patient on the day of service. I have reviewed and confirmed the history, physical exam, laboratory and radiologic data with the house staff as documentedin the ICU Resident note. I have reviewed and discussed my treatment plan with the ICU team and other medical/business solutions consultant staff, making frequent assessments and decisions [...] transfer to floor today. Silverio Locke MD Risk And Insurance Manager Department of Anesthesiology * Timmy Rosales - 05/12/2023 6:43 PM CST Fr Timmy Rosales [phone] 05/12/23 1800 Time Spent Start Time 1740 Stop Time 1750 Time Calculation (min) 10 min Patient Spiritual Assessment Spirituality Assessed Yes Voodoo Affiliation Baptist Active in Faith Yes Spiritual Needs Communion;Prayer Clinical Encounter Type Visited With Patient and family together Response Type Continuing visit Routine Visit Follow-up Continue Visiting Yes Reason for visit Sacramental;Support Sacramental Encounters Communion Patient wants communion Communion Given Indicator Yes Outcomes and Progress Aligning care with patient's values Achieved Preserve dignity and respect Achieved Demonstrating care and respect Achieved Interventions Interventions Active listening;Offer emotional support;Offer spiritual/pentecostalism support;Prayer (Benediction) BOARDING MACHINE OPERATOR * Kim Bello, PT - 05/12/2023 9:06 [...] treatment team and contact the PT or PEDIATRIC INTENSIVE PHYSICIAN currently assigned to this patient. If a physical therapy clinician is not assigned to this patient, please call [phone]. 05/12/23 0906 PT Last Visit Session Type [...] independence with functional mobility. 05/10/23 05/20/23 -- BOARDING MACHINE OPERATOR * Flex Parsons MD - 05/12/2023 5:46 AM CST Vascular Surgery Daily Progress Patient Name/MRN: Eriberto Chau [id number] Treatment Team: Vascular Surgery- Pager: [phone] Attending: Faustino Herrera MD Today's Date: 05/12/2023 Room/Bed: [id number] Admit Date: 05/01/2023 Code Status: Full Code [...] the false lumen. He was transferred to [facility] for further evaluation and treatment. Here, he [...] All feel these findings not to be 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 uniforms of a type a dissection, therefore no [...] PT/OT - TTOU Flex Parsons MD, MSc [phone] For patients or family members viewing this note through [employer] programs: This note was written as a [...] Faustino Herrera MD at 05/12/2023 1:18 PM DYE BOARDING MACHINE OPERATOR BOARDING MACHINE OPERATOR BOARDING MACHINE OPERATOR * ToMeron MD - 05/12/2023 1:07 AM [...] L subclavian stent, vascular aware reviewed images Natacha says looks fine - Coreg 25 BID, wean nicardipine - D/c A line, d/c robaxin - Decrease seroquel 05/11 pm - glydo for hutton comfort Objective Medications: Scheduled Meds:acetaminophen, 1,000 mg, oral, Q6H SUSAN aspirin, 81 mg, oral, Daily carvediloL, 25 mg, oral, BID gabapentin, 300 mg, oral, TID heparin, 5,000 Units, subcutaneous, Q8H [facility] lidocaine, 1 patch, transdermal, Daily polyethylene glycol, 17 g, oral, Daily QUEtiapine, 50 mg, oral, Daily QUEtiapine, 75 mg, oral, Nightly senna-docusate, 1 tablet, oral, BID sodium chloride, 2 spray, each nostril, Q2H while awake sodium chloride 0.9%, 0.5-20 mL, intra-catheter, Q8H [facility] tamsulosin, 0.4 mg, oral, Daily Continuous Infusions:Lactated Ringer's, 10 mL/hr, Last Rate: Stopped (05/11/23 150) niCARdipine, 0-2.5 mcg/kg/min, Last Rate: Stopped (05/11/231502) sodium chloride 0.9%, 3-12 mL/hr, Last Rate: [...] Laboratory data: Recent Labs Lab Units 05/12/23 00105/11/23 0014 05/10/23 003 WBC K/cumm 13.6* 17.6* 18.7* HEMOGLOBIN g/dL [...] Dalton Locke MD at 05/12/2023 3:44 PM DYE BOARDING MACHINE OPERATOR BOARDING MACHINE OPERATOR BOARDING MACHINE OPERATOR Associated attestation - Dalton Locke MD - 05/12/2023 3:44 PM DYE BOARDING MACHINE OPERATOR Attending Documentation: I have seen and examined this critically ill patient on the day of service. I have reviewed and confirmed the history, physical exam, laboratory and radiologic data with the house staff as documentedin the ICU Resident note. I have reviewed and discussed my treatment plan with the ICU team and other medical/business solutions consultant staff, making frequent assessments and decisions [...] Q2h neurovascular checks TTOU Silverio Locke MD Risk And Insurance Manager Department of Anesthesiology * Timmy Rosales - 2023 6:24 PM CST Fr Timmy Rosales [phone] 05/11/23 1800 Time Spent Start Time 1740 Stop Time 1750 Time Calculation (min) 10 min Patient Spiritual Assessment Spirituality Assessed Yes Voodoo Affiliation Baptist Active in Faith Yes Spiritual Needs Communion;Prayer Clinical Encounter Type Visited With Patient and family together Response Type Continuing visit Routine Visit Follow-up Continue Visiting Yes Reason for visit Sacramental;Support Sacramental Encounters Communion Patient wants communion Communion Given Indicator Yes Outcomes and Progress Aligning care with patient's values Achieved Preserve dignity and respect Achieved Demonstrating care and respect Achieved Interventions Interventions Active listening;Offer spiritual/pentecostalism support;Prayer (Benediction) BOARDING MACHINE OPERATOR * Nigel Mcgraw MD - 2023 5:50 PM CST Neurosurgery follow-up note: This patient was seen by the Neurosurgery team for concern for cord infarct, which was managed witha lumbar drain placed by QUENTIN . This patient was staffed with Dr. Smith, who reviewed the patient's history and imaging. The LD was removed on 05/10. The pt does not require further f/u with [facility]. If there are further questions or concerns regarding this patient, please page the Neurosurgery call pager at [phone], and request the resident caring for Dr. Smith's patients. 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 [employer] Fall within the last 6 months: Yes [...] Compliance/Behavior: Easy to engage Perseveration: Not present Joe Cognitive Assessment-Blind (MOCA-Blind) MOCA-Blind Version: Version 3 [...] Dc Lopez OT at 2023 2:54 PM DYE BOARDING MACHINE OPERATOR BOARDING MACHINE OPERATOR BOARDING MACHINE OPERATOR * Darren Busyb, RD - 2023 11:50 AM CST NUTRITION [...] mmol/L 100 100 -- 104 CO2 mmol/L -- 20* BUN SERUM mg/dL -- 17 CREATININE mg/dL 1.24 0.90 -- 0.86 DNI-SOX-XXBMTMC mL/min/1.73 m2 80 >90 -- >90 CALCIUM mg/dL 8.9 9.1 -- 8.5 ALBUMIN g/dL -- 3.7 < > -- PHOSPHORUS PLASMA mg/dL 2.0* 3.2 -- 2.8 MAGNESIUM mg/dL 2.4 2.7* -- 2.7* < > = values in this interval not displayed. Recent Labs Lab Units 05/11/23 0014 05/10/23 0037 05/10/23 0016 05/09/23 0622 05/09/23 0035 05/08/23 1925 05/08/23 0108 GLUCOSE mg/dL 121 128 -- -- [...] (246 lb 0.5 oz) ESTIMATED NEEDS: Kcal/kg: (5144-5936 kcal (14-18 kcal/kg BW)). Type of Weight Used for Estimated Kcals: Current Total Protein Estimated Needs (gm): 101.64 Protein Needs Based on g/k.4 Type of Weight Used forEstimated Protein : [place] Total Fluid Estimated Needs: 1815 Fluid Needs Based on : 25 ml/kg Type of Weight Used for EstimatedFluid Needs: [place] Dietary Orders (From admission, onward) Start Ordered 05/07/23 1502 Adult Diet Regular Diet effective now Question: ([facility]) Diet type Answer: Regular 05/07/23 1501 Allergies: [...] interview INTERVENTION(S): Summary: Assess for nutrition changes, [place] diet preferences within the limits of nutrition [...] patterns, Weight changes Darren Busby MS, RD, [facility], N [phone] Kst Operator-Weekend: [phone] BOARDING MACHINE OPERATOR * Flex Parsons MD - 2023 10:01 AM CST Vascular Surgery Daily Progress Patient Name/MRN: Eriberto Chau [id number] Treatment Team: Vascular Surgery- Pager: [phone] Attending: Faustino Herrera MD Today's Date: 2023 Room/Bed: [place] [id number] Admit Date: 05/01/2023 Code Status: Full Code [...] aorta, unspecified portion of aorta ([facility]) Current Assessment & Plan 32y/o male with uncontrolled HTN who presented to an OSH ER with acute onset shortness of breath, chest pain and back pain. 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 He was transferred to [facility] for further evaluation and treatment. Here, he [...] All feel these findings not to be 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 uniforms of a type a dissection, therefore no [...] line (Completed) Dissection of thoracoabdominal aorta (CMS/HCC) ([facility]) Relevant Orders CV Hybrid Room (Default Orderable) [...] of chest/abdomen/pelvis today Flex Parsons MD, MSc [phone] For patients or family members viewing this note through [employer] programs: This note was written as a [...] Faustino Herrera MD at 2023 12:24 PM DYE BOARDING MACHINE OPERATOR BOARDING MACHINE OPERATOR BOARDING MACHINE OPERATOR * Pb Elizabeth, PT - 2023 9:59 [...] treatment team and contact the PT or PEDIATRIC INTENSIVE PHYSICIAN currently assigned to this patient. If a physical therapy clinician is not assigned to this patient, please call [phone]. 05/11/23 0983 PT Last Visit Session Type Treatment PT [...] Static Standing-Balance Support Bilateral upper extremity supported (CHIEF II DISPATCHER) Static Standing-Standing Surface Floor Static Standing-Level of Assistance Minimum assistance;Moderate assistance (varying between min-mod A with R knee buckling and R lateral LOB) Static Standing-Comment/# of Minutes assist for safety/balance, R knee buckling and R lateral LOB. cueing for weight shifting. Dynamic Standing Balance Dynamic Standing-Balance Support Bilateral upper extremity supported (CHIEF II DISPATCHER) Dynamic Standing-Standing Surface Floor Dynamic Standing-Level of [...] independence with functional mobility. 05/10/23 05/20/23 -- BOARDING MACHINE OPERATOR * Jonathan Mccoy - 2023 6:02 AM CST Spiritual Care Jonathan Mccoy 05/11/23 [phone] 05/11/23 0600 Time Spent Start Time 0540 Stop Time 0553 Time Calculation (min) 13 min Patient Spiritual Assessment Spirituality Assessed Yes Voodoo Affiliation Baptist Active in Faith Yes Spiritual Needs Prayer Clinical Encounter Type Visited With Patient Response Type Continuing visit Routine Visit Follow-up Reason for visit Support Outcomes and Progress Aligning care with patient's values Achieved Preserve dignity and respect Achieved Demonstrating care and respect Achieved Hansa affirmation Achieved Establish rapport and connectedness Achieved Sense of peace Achieved Interventions Interventions Active listening;Explore hansa and values;Offer emotional support;Offer spiritual/pentecostalism support;Prayer 05/11/23 0600 Time Spent Start Time 0540 Stop Time 0553 Time Calculation (min) 13 min Patient Spiritual Assessment Spirituality Assessed Yes Voodoo Affiliation Baptist Active in Faith Yes Spiritual Needs Prayer Clinical Encounter Type Visited With Patient Response Type Continuing visit Routine Visit Follow-up Reason for visit Support Outcomes and Progress Aligning care with patient's values Achieved Preserve dignity and respect Achieved Demonstrating care and respect Achieved Hansa affirmation Achieved Establish rapport and connectedness Achieved Sense of peace Achieved Interventions Interventions Active listening;Explore hansa and values;Offer emotional support;Offer spiritual/pentecostalism support;Prayer BOARDING MACHINE OPERATOR * ToMeron MD - 2023 1:[address] ICU Daily Progress Shifts: Shift Options: CTI Blue 3 PM Subjective Patient is a 33 y.o. male admitted to the hospital on 05/01/2023 4:58 AM with/following: Type B Aortic dissection ICU events 05/02: TEVAR 05/03: R IJ CVC 05/05: c/f spinal cord ischemia, lumbar drain placed Overnight events: 05/10 AM - Continue PRN labetalol - DC lumbar drain - FBG -1-2L, lasix 40 BID - Dulcolax FL - Repeat cultures - sBP <140-180 05/10 pm - meropenem course complete - folet removed around 1299, 2029 bladder scan >500 x1 straight cath [...] Rate: 10 mL/hr (05/11/23199) lidocaine, 1 mg/kg/hr ([place]), Last Rate: 1 mg/kg/hr (05/11/23199) niCARdipine, 0-2.5 mcg/kg/min, Last Rate: Stopped (2350) sodium chloride 0.9%, 3-12 mL/hr, Last Rate: 6 mL/hr (05/11/23199) sodium chloride 0.9%, 3-12 mL/hr, Last Rate: 6 mL/hr (05/10/23 1332) Vitals: Temp: [37 ??C (98.6 ??F)-38.4 ??C (101.1 ??F)] 37 ??C (98.6 ??F) Pulse: [86-130] 100 Resp: [11-24] 16 SpO2: [93 %-100 %] 100 % Arterial Line BP: (124-212)/(43-76) 128/57 FiO2 (%): [30 %] 30 % Fluid balance: I/O this shift: In: 438.8 [I.V.:328.8; IV Piggyback:110] Out: 525 [Urine:525] Intake/Output Summary (Last 24 hours) at 2023 023 Last data filed at 2023 0200 Gross [...] [facility] data: Recent Labs Lab Units 05/11/23 0014 05/10/23 0037 05/09/23 0622 05/09/23 0035 WBC K/cumm 17.6* 18.7* -- 14.9* HEMOGLOBIN, POC g/dL -- -- 10.2* -- HEMOGLOBIN g/dL 8.7* 9.9* -- 10.1* HEMATOCRIT % 26.5* 29.9* -- 30.1* HEMATOCRIT POC % -- -- 31.0* -- PLATELETS K/cumm 411* 390 -- 274 Recent Labs Lab Units 05/11/231305/10/233605/09/235 SODIUM mmol/L 136 134* 134* POTASSIUM PLASMA mmol/L 4.1 4.1 See Comment CHLORIDE mmol/L 100 100 104 CO2 mmol/L 23 20* BUN SERUM mg/dL 18 17 CREATININE mg/dL 1.24 0.90 0.86 CALCIUM mg/dL 8.9 9.1 8.5 Recent Labs Lab Units 05/11/231305/10/233605/09/2334 PROTIME (PT) sec 15.8* 15.8* 14.3* INR 1.39* 1.39* 1.25* APTT sec 36 32 33 Recent Labs Lab Units 05/11/231305/10/233605/09/2322 05/09/236 PH ART 7.43 7.41 7.36 7.39 PCO2 [...] Dalton Locke MD at 05/12/2023 3:40 PM DYE BOARDING MACHINE OPERATOR BOARDING MACHINE OPERATOR BOARDING MACHINE OPERATOR Associated attestation - Dalton Locke MD - 05/12/2023 3:40 PM DYE BOARDING MACHINE OPERATOR Attending Documentation: I have seen and examined this critically ill patient on the day of service. I have reviewed and confirmed the history, physical exam, laboratory and radiologic data with the house staff as documentedin the ICU Resident note. I have reviewed and discussed my treatment plan with the ICU team and other medical/business solutions consultant staff, making frequent assessments and decisions [...] a fluid balance goal. Silverio Locke MD Risk And Insurance Manager Department of Anesthesiology * Timmy Rosales - 05/10/2023 3:57 PM CST Fr Timmy Rosales [phone] 05/10/23 1500 Time Spent Start Time 1330 Stop Time 1340 Time Calculation (min) 10 min Patient Spiritual Assessment Spirituality Assessed Yes Voodoo Affiliation Baptist Active in Faith Yes Spiritual Needs Communion;Prayer Clinical Encounter Type Visited With Patient and family together Response Type Continuing visit Routine Visit Follow-up Continue Visiting Yes Reason for visit Sacramental;Support Sacramental Encounters Communion Patient wants communion Communion Given Indicator Yes Outcomes and Progress Aligning care with patient's values Achieved Preserve dignity and respect Achieved Demonstrating care and respect Achieved Interventions Interventions Active listening;Prayer;Offer spiritual/pentecostalism support (Benediction) BOARDING MACHINE OPERATOR * Kim Bello, PT - 05/10/2023 11:40 [...] goal Prior Function Prior Function Level of Melba: Independent with ADLs, Independent functional transfers, Independent with ambulation Lives With: Spouse, Family Receives Help From: Spouse/Significant other, Family (time lock expert assist available) Fall within the last 6 [...] independence with functional mobility. 05/10/23 05/20/23 -- BOARDING MACHINE OPERATOR * Lisa Landa MD - 05/10/2023 10:01 AM CST Neurosurgery Brief note: Lumbar drain Removal Patient with lumbar drain. Decision made to discontinue lumbar drain. Drain removed. Site closed with single interrupted stitch using 3-0 monocryl suture. Patient tolerated the procedure well. No CSFleak noted after procedure. Drain tip intact. - monitor for drainage from drain site - please page NSGY pager vocational aide if any concerns ([phone]) Lisa Landa MD BOARDING MACHINE OPERATOR * Flex Parsons MD - 05/10/2023 8:13 AM CST Vascular Surgery Daily Progress Patient Name/MRN: Eriberto Chau [id number] Treatment Team: Vascular Surgery- Pager: [phone] Attending: Faustino Herrera MD Today's Date: 05/10/2023 Room/Bed: [place] [id number] Admit Date: 05/01/2023 Code Status: Full Code [...] the false lumen. He was transferred to [facility] for further evaluation and treatment. Here, he [...] All feel these findings not to be 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 uniforms of a type a dissection, therefore no [...] can remove today Flex Parsons MD, MSc [phone] For patients or family members viewing this note through [employer] programs: This note was written as a [...] Faustino Herrera MD at 2023 12:23 PM DYE BOARDING MACHINE OPERATOR BOARDING MACHINE OPERATOR BOARDING MACHINE OPERATOR * Lisa Landa MD - 05/10/2023 6:11 [...] discontinue today. Responsible Team Lisa Landa MD (Coconut Boiler) Phylicia Arshad MD PhD (Perez) Devyn Mcgraw MD (Senior) Jorge Rivers MD PhD (Chief) For any questions or concerns, please contact the nurse practitioner signed in to the chart. If youare unable to reach them, you may contact the residents as listed. If it is after 6pm or you are unable to reach the STATISTICIAN THEORETICAL or resident team, please page the Neurosurgery Call Pager at [phone]. Cosigned by Jaden Smith MD at 05/10/2023 9:12 PM DYE BOARDING MACHINE OPERATOR BOARDING MACHINE OPERATOR BOARDING MACHINE OPERATOR BOARDING MACHINE OPERATOR Associated attestation - Jaden Smith MD - 05/10/2023 9:12 PM DYE BOARDING MACHINE OPERATOR I have seen and examined the patient on 05/10/23. I agree with the findings and plan of care as documented in the resident's/fellow's note.. * Meron Mendoza MD - 05/10/2023 1:[address] ICU Daily Progress Shifts: Shift Options: CTI Blue 3 PM Subjective [...] 10 mL/hr (05/10/23 0000) lidocaine, 1 mg/kg/hr ([place]), Last Rate: 1 mg/kg/hr (05/10/23 0100) niCARdipine, 0-2.5 mcg/kg/min, Last Rate: Stopped (05/10/23 0208) sodium chloride 0.9%, 3-12 mL/hr, Last Rate: 6 mL/hr (05/10/23 0100) sodium chloride 0.9%, 3-12 mL/hr, Last [...] [facility] data: Recent Labs Lab Units 05/10/23 0037 05/09/23 0622 05/09/23 0035 05/08/23 1925 05/08/23 010 WBC K/cumm 18.7* -- 14.9* -- 14.2* HEMOGLOBIN, POC g/dL -- 10.2* -- < > -- HEMOGLOBIN g/dL 9.9* -- 10.1* -- 9.9* HEMATOCRIT % 29.9* -- 30.1* -- 29.9* HEMATOCRIT POC % -- 31.0* -- < > -- PLATELETS K/cumm 390 -- 274 -- 298 < > = values in this interval not displayed. Recent Labs Lab Units 05/10/233605/09/233405/08/23 0108 SODIUM mmol/L 134* 134* 134* POTASSIUM PLASMA mmol/L 4.1 See Comment 4.9 CHLORIDE mmol/L 100 104 104 CO2 mmol/L 23 20* 19* BUN SERUM mg/dL 18 17 18 CREATININE mg/dL 0.90 0.86 1.04 CALCIUM mg/dL 9.1 8.5 8.8 Recent Labs Lab Units 05/10/233605/09/233405/08/23 0108 PROTIME (PT) sec 15.8* 14.3* 14.2* INR 1.39* 1.25* 1.25* APTT sec 32 33 35 Recent Labs Lab Units 05/10/233605/09/23 0622 05/09/236 05/08/23 1925 05/08/23 0802 PH ART 7.41 7.36 7.39 < [...] Dalton Locke MD at 05/12/2023 3:28 PM DYE BOARDING MACHINE OPERATOR BOARDING MACHINE OPERATOR BOARDING MACHINE OPERATOR Associated attestation - Dalton Locke MD - 05/12/2023 3:28 PM DYE BOARDING MACHINE OPERATOR Attending Documentation: I have seen and examined this critically ill patient on the day of service. I have reviewed and confirmed the history, physical exam, laboratory and radiologic data with the house staff as documentedin the ICU Resident note. I have reviewed and discussed my treatment plan with the ICU team and other medical/business solutions consultant staff, making frequent assessments and decisions [...] a fluid balance goal. Silverio Locke MD Risk And Insurance Manager Department of Anesthesiology * Timmy Rosales - 05/09/2023 4:09 PM CST Fr Timmy Rosales [phone] 05/09/23 1600 Time Spent Start Time 1200 Stop Time 1210 Time Calculation (min) 10 min Patient Spiritual Assessment Spirituality Assessed Yes Voodoo Affiliation Baptist Active in Faith Yes Spiritual Needs Prayer Clinical Encounter Type Visited With Patient and family together Response Type Continuing visit Routine Visit Follow-up Continue Visiting Yes Reason for visit Sacramental;Support Outcomes and Progress Aligning care with patient's values Achieved Preserve dignity and respect Achieved Demonstrating care and respect Achieved Interventions Interventions Active listening;Offer spiritual/pentecostalism support;Prayer (Benediction) BOARDING MACHINE OPERATOR * Lisa Landa MD - 05/09/2023 7:31 [...] 2 hours. Responsible Team Lisa Landa MD (Coconut Boiler) Phylicia Arshad MD PhD (Perez) Devyn Mcgraw MD (Senior) Jorge Rivers MD PhD (Chief) For any questions or concerns, please contact the nurse practitioner signed in to the chart. If youare unable to reach them, you may contact the residents as listed. If it is after 6pm or you are unable to reach the STATISTICIAN THEORETICAL or resident team, please page the Neurosurgery Call Pager at [phone]. Cosigned by Jaden Smith MD at 05/10/2023 10:06 AM DYE BOARDING MACHINE OPERATOR BOARDING MACHINE OPERATOR BOARDING MACHINE OPERATOR Associated attestation - Jaden Smith MD - 05/10/2023 10:06 AM DYE BOARDING MACHINE OPERATOR I have seen and examined the patient on 05/09/2023. I agree with the findings and plan of care as documented in the resident's/fellow's note. * Flex Parsons MD - 05/09/2023 7:19 AM CST Vascular Surgery Daily Progress Patient Name/MRN: Eriberto Chau [id number] Treatment Team: Vascular Surgery- Pager: [phone] Attending: Faustino Herrera MD Today's Date: 05/09/2023 Room/Bed: [id number] Admit Date: 05/01/2023 Code Status: Full Code [...] 28 - 38 sec Triglycerides Collection Time: 12/11/23 12:35 AM Result Value Ref Range Triglycerides [...] the false lumen. He was transferred to [facility] for further evaluation and treatment. Here, he [...] All feel these findings not to be 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 uniforms of a type a dissection, therefore no [...] can clamp today Flex Parsons MD, MSc [phone] For patients or family members viewing this note through [employer] programs: This note was written as a [...] Faustino Herrera MD at 05/09/2023 3:51 PM DYE BOARDING MACHINE OPERATOR BOARDING MACHINE OPERATOR BOARDING MACHINE OPERATOR Associated attestation - Faustino Herrera MD - 05/09/2023 3:51 PM DYE BOARDING MACHINE OPERATOR I have seen and examined the patient on 05/09/23. I agree with the findings and plan of care as documented in the resident's/fellow's note.. * Dustin Souza, - 05/09/2023 1:[address] ICU Daily Progress Shifts: MD Shift Options: CTI Blue 3 PM Subjective Patient is a 32 y.o. male admitted to the hospital on 05/01/2023 4:58 AM with/following: Type B Aortic dissection ICU events 05/02: TEVAR 05/03: R IJ CVC 05/05: c/f spinal cord ischemia, lumbar drain placed Overnight events: 12 AM - gabapentin 300 TID - d/c [...] 10 mL/hr, Last Rate: 10 mL/hr (05/09/23 0100) lidocaine, 1 mg/kg/hr ([place]), Last Rate: 1 mg/kg/hr (05/09/23 0158) norepinephrine, [...] interval not displayed. Recent Labs Lab Units 05/09/235 05/08/2310705/07/2334 SODIUM mmol/L 134* 134* 140 POTASSIUM PLASMA mmol/L See Comment 4.9 3.8 CHLORIDE mmol/L 104 104 97 CO2 mmol/L 20* 19* 33* BUN SERUM mg/dL 17 18 20 CREATININE mg/dL 0.86 1.04 0.99 CALCIUM mg/dL 8.5 8.8 8.7 Recent Labs Lab Units 05/09/23 0035 05/08/23 0108 05/07/23 1037 PROTIME (PT) sec 14.3* 14.2* 14.6* INR 1.25* 1.25* 1.28* APTT sec 33 35 35 Recent Labs Lab Units 05/09/23 0036 05/08/23 1925 05/08/23 0802 05/08/23 0108 PH ART 7.39 7.44 7.36 7.37 PCO2 [...] Quad lumen, PIVx3, R radial a-line, Anni Souza DO PGY-3 Anesthesiology Cosigned by Dalton Locke MD at 05/12/2023 3:17 PM DYE BOARDING MACHINE OPERATOR BOARDING MACHINE OPERATOR BOARDING MACHINE OPERATOR Associated attestation - Dalton Locke MD - 05/12/2023 3:17 PM DYE BOARDING MACHINE OPERATOR Attending Documentation: I have seen and examined this critically ill patient on the day of service. I have reviewed and confirmed the history, physical exam, laboratory and radiologic data with the house staff as documentedin the ICU Resident note. I have reviewed and discussed my treatment plan with the ICU team and other medical/business solutions consultant staff, making frequent assessments and decisions [...] small subdural blood collection. Silverio Locke MD Risk And Insurance Manager Department of Anesthesiology * Franci Marin, PT - 05/08/2023 2:21 PM CST Physical Therapy 05/08/23 1421 General PT Missed Visit Reason Bedrest BOARDING MACHINE OPERATOR * Timmy Rosales - 05/08/2023 1:50 PM CST Fr Timmy Rosales [phone] 05/08/23 1300 Time Spent Start Time 1320 Stop Time 1330 Time Calculation (min) 10 min Patient Spiritual Assessment Spirituality Assessed Yes Voodoo Affiliation Baptist Active in Faith Yes Spiritual Needs Communion;Prayer Clinical Encounter Type Visited With Patient and family together Response Type Continuing visit Routine Visit Follow-up Continue Visiting Yes Reason for visit Sacramental;Support Sacramental Encounters Communion Patient wants communion Communion Given Indicator Yes Outcomes and Progress Aligning care with patient's values Achieved Preserve dignity and respect Achieved Demonstrating care and respect Achieved Interventions Interventions Active listening;Offer spiritual/pentecostalism support;Prayer (Benediction) BOARDING MACHINE OPERATOR * Flex Parsons MD - 05/08/2023 6:06 AM CST Vascular Surgery Daily Progress Patient Name/MRN: Eriberto Chau [id number] Treatment Team: Vascular Surgery- Pager: [phone] Attending: Faustino Herrera MD Today's Date: 05/08/2023 Room/Bed: [id number] Admit Date: 05/01/2023 Code Status: Full Code [...] the false lumen. He was transferred to [facility] for further evaluation and treatment. Here, he [...] All feel these findings not to be 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 uniforms of a type a dissection, therefore no [...] consider clamping tomorrow Flex Parsons MD, MSc [phone] For patients or family members viewing this note through [employer] programs: This note was written as a [...] Faustino Herrera MD at 05/09/2023 7:14 AM DYE BOARDING MACHINE OPERATOR BOARDING MACHINE OPERATOR BOARDING MACHINE OPERATOR * Dustin Souza, DO - 05/08/2023 12:[address] ICU Daily Progress Shifts: Shift Options: CTI Blue 3 PM Subjective [...] Rate: Stopped (05/07/23 1100) lidocaine, 1.5 mg/kg/hr ([place]), Last Rate: 1.5 mg/kg/hr (05/08/2399) norepinephrine, 0-2 [...] [Urine:675] Intake/Output Summary (Last 24 hours) at 05/08/2023127 Last data filed at 05/08/2023 010 Gross per 24 hour Intake 2763.52 ml [...] [facility] data: Recent Labs Lab Units 05/07/23 2040 05/07/23 1557 05/07/23 0035 05/06/23 0132 05/06/23 [...] Quad lumen, PIVx3, R radial a-line, Anni Souza, PGY-3 Anesthesiology Cosigned by Dalton Locke MD at 05/08/2023 2:08 PM DYE BOARDING MACHINE OPERATOR BOARDING MACHINE OPERATOR BOARDING MACHINE OPERATOR Associated attestation - Dalton Locke MD - 05/08/2023 2:08 PM DYE BOARDING MACHINE OPERATOR Attending Documentation: I have seen and examined this critically ill patient on the day of service. I have reviewed and confirmed the history, physical exam, laboratory and radiologic data with the house staff as documentedin the ICU Resident note. I have reviewed and discussed my treatment plan with the ICU team and other medical/business solutions consultant staff, making frequent assessments and decisions [...] small subdural blood collection. Silverio Locke MD Risk And Insurance Manager Department of Anesthesiology * Tamiko Miles MD PhD - 05/07/2023 8:54 AM CST Patient seen on 05/07/2023 during rounds. Plan for care was discussed and documented by the team based on discussion between team and primary attending. I am available for any urgent or emergent issues today. Tamiko Miles MD, PhD 05/07/2023 8:54 AM BOARDING MACHINE OPERATOR * Flex Parsons MD - 05/07/2023 8:35 AM CST Vascular Surgery Daily Progress Patient Name/MRN: Eriberto Chau [id number] Treatment Team: Vascular Surgery- Pager: [phone] Attending: Faustino Herrera MD Today's Date: 05/07/2023 Room/Bed: [id number] Admit Date: 05/01/2023 Code Status: Full Code [...] the false lumen. He was transferred to [facility] for further evaluation and treatment. Here, he [...] All feel these findings not to be 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 uniforms of a type a dissection, therefore no [...] (Dr Abarca) consult Flex Parsons MD, MSc [phone] For patients or family members viewing this note through [employer] programs: This note was written as a [...] Faustino Herrera MD at 05/09/2023 7:14 AM DYE BOARDING MACHINE OPERATOR BOARDING MACHINE OPERATOR BOARDING MACHINE OPERATOR * Phylicia Arshad MD - 05/07/2023 7:40 [...] 3/5 3/5 3/5 3/5 3/5* R 4+/5 4/5 4/5 4/5 4/5 * [...] or you are unable to reach the STATISTICIAN THEORETICAL or resident team, please page the Neurosurgery Call Pager at [phone]. Cosigned by Jaden Smith MD at 05/07/2023 10:05 PM DYE BOARDING MACHINE OPERATOR BOARDING MACHINE OPERATOR BOARDING MACHINE OPERATOR BOARDING MACHINE OPERATOR Associated attestation - Jaden Smith MD - 05/07/2023 10:05 PM DYE BOARDING MACHINE OPERATOR I have seen and examined the patient [...] SUSAN Continuous Infusions:clevidipine, 0-32 mg/hr, Last Rate: 3 mg/hr (05/07/2399) dexmedeTOMIDine, 0-1.5 mcg/kg/hr, Last Rate: 1 mcg/kg/hr (05/07/2399) fentaNYL, 0-400 mcg/hr, Last Rate: 50 mcg/hr (05/07/23117) Lactated Ringer's, 10 mL/hr, Last Rate: 10 mL/hr (05/07/2399) propofol, 0-100 mcg/kg/min, Last Rate: 20 mcg/kg/min (05/07/23 0128) sodium chloride 0.9%, 3-12 mL/hr, Last Rate: 6 mL/hr (05/07/23 0100) sodium chloride 0.9%, 3-12 mL/hr, Last [...] Units 05/07/23 0035 05/06/23 0132 05/06/23 0128 05/05/23192105/05/23 0012 WBC K/cumm 13.6* -- 23.8* -- [...] 8.7 8.1* 7.3* Recent Labs Lab Units 05/05/23 2014 05/02/23 0410 05/01/23 0519 PROTIME (PT) sec 16.9* 14.9* 13.7 INR 1.48* 1.31* 1.20 APTT sec 35 -- 34 Recent Labs Lab Units 05/07/23 0035 05/06/23192105/06/23 1635 PH ART 7.52* 7.54* 7.51* PCO2 [...] Dalton Locke MD at 05/08/2023 2:06 PM DYE BOARDING MACHINE OPERATOR BOARDING MACHINE OPERATOR BOARDING MACHINE OPERATOR Associated attestation - Dalton Locke MD - 05/08/2023 2:06 PM DYE BOARDING MACHINE OPERATOR Attending Documentation: I have seen and examined this critically ill patient on the day of service. I have reviewed and confirmed the history, physical exam, laboratory and radiologic data with the house staff as documentedin the ICU Resident note. I have reviewed and discussed my treatment plan with the ICU team and other medical/business solutions consultant staff, making frequent assessments and decisions [...] small subdural blood collection. Silverio Locke MD Risk And Insurance Manager Department of Anesthesiology * Darren Busby, RD [...] 3-12 mL/hr, Last Rate: 3 mL/hr (05/06/23 09) sodium chloride 0.9%, 3-12 mL/hr, Last [...] mg/dL 1.14 1.38* 1.27 < > 1.19 QTI-FCT-DUMNSGE mL/min/1.73 m2 89 71 78 < > [...] (H) 05/04/2023 NURSING ASSESSMENT: Last BM Date: (PEDIATRIC INTENSIVE PHYSICIAN) Bowel Sounds (All Quadrants): Hypoactive Toni Scale [...] (246 lb 0.5 oz) ESTIMATED NEEDS: Kcal/kg: (3492-7882 kcal (14-18 kcal/kg BW)). Type of Weight Used for Estimated Kcals: Current Total Protein Estimated Needs (gm): 101.64 Protein Needs Based on g/k.4 Type of Weight Used forEstimated Protein : [place] Total Fluid Estimated Needs: 1815 Fluid Needs Based on : 25 ml/kg Type of Weight Used for EstimatedFluid Needs: [place] Allergies: Reviewed, NKFA IMPRESSION: RD follow-up on [...] interview INTERVENTION(S): Summary: Assess for nutrition changes, [place] diet preferences within the limits of nutrition [...] patterns, Weight changes Darren Busby MS, RD, [facility], N [phone] Kst Operator-Weekend: [phone] BOARDING MACHINE OPERATOR * Flex Parsons MD - 05/06/2023 6:45 AM CST Vascular Surgery Daily Progress Patient Name/MRN: Eriberto Chau [id number] Treatment Team: Vascular Surgery- Pager: [phone] Attending: Faustino Herrera MD Today's Date: 05/06/2023 Room/Bed: [id number] Admit Date: 05/01/2023 Code Status: Full Code [...] PM Result Value Ref Range Product code S3637W19 Unit Number [id number] Product Blood Type APOS Dispense Status PRESUMED TRANSFUSED Protime-INR Collection Time: 05/05/23 8:14 PM Result Value Ref Range PT 16.9 (H) 10.3 - 13.7 sec INR 1.48 (H) 0.90 - 1.20 aPTT Collection Time: 05/05/23 8:14 PM Result Value Ref Range aPTT 35 28 - 38 sec Prepare platelets: 2 Units Collection Time: 05/05/23 8:17 PM Result Value Ref Range Product code A7134V39 Unit Number [id number] Product Blood Type APOS Dispense Status ISSUED [...] the false lumen. He was transferred to [facility] for further evaluation and treatment. Here, he [...] All feel these findings not to be 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 uniforms of a type a dissection, therefore no [...] urgent from our perspective as it won't change management director, lumbar drain, f/u NSGY - cardiology (Dr Abarca) consult Flex Parsons MD, MSc [phone] For patients or family members viewing this note through [employer] programs: This note was written as a [...] Faustino Herrera MD at 05/06/2023 12:25 PM DYE BOARDING MACHINE OPERATOR BOARDING MACHINE OPERATOR BOARDING MACHINE OPERATOR Associated attestation - Faustino Herrera MD - 05/06/2023 12:25 PM DYE BOARDING MACHINE OPERATOR I have seen and examined the patient [...] 3/5 on the L.. * Dustin Souza, DO - 05/06/2023 1:[address] ICU [...] Quad lumen, PIVx3, R radial a-line, Anni Souza DO PGY-3 Anesthesiology Cosigned by Gus Busby MD at 05/06/2023 11:13 AM DYE BOARDING MACHINE OPERATOR BOARDING MACHINE OPERATOR BOARDING MACHINE OPERATOR BOARDING MACHINE OPERATOR * Carlos Alberto Nix MD PhD - [...] VerifyNow No results found for: SALICYLATE , [id number] CXR: reviewed EKG: reviewed Patient NPO?: N/A [...] to proceed. Carlos Alberto Nix MD PhD BOARDING MACHINE OPERATOR * Timmy Rosales - 05/05/2023 4:35 PM CST Fr Timmy Reyessaad [phone] 05/05/23 1600 Time Spent Start Time 1510 Stop Time 1520 Time Calculation (min) 10 min Patient Spiritual Assessment Spirituality Assessed Yes Voodoo Affiliation Baptist Active in Faith Yes Spiritual Needs Prayer Clinical Encounter Type Visited With Patient and family together Response Type Continuing visit Routine Visit Follow-up Continue Visiting Yes Reason for visit Sacramental;Support Outcomes and Progress Aligning care with patient's values Achieved Preserve dignity and respect Achieved Demonstrating care and respect Achieved Interventions Interventions Active listening;Offer spiritual/pentecostalism support;Prayer (Benediction) BOARDING MACHINE OPERATOR * Cleveland Hawley MD - 05/05/2023 2:45 [...] In: 3480.6 [I.V.:2030.6; NG/GT:510; IV Piggyback:940] Out: 66818 [Urine:93232] Net IO Since Admission: 4,855.66 mL [05/05/23 [...] fentaNYL, 0-400 mcg/hr, Last Rate: Stopped (05/05/23 0955) ketamine, 50 mg/hr, Last Rate: Stopped (05/05/23 [...] Position: Lying Pulse: 83 86 86 Resp: 04 09 10 Temp: (!) 38.1 ??C (100.6 ??F) [...] more epistaxis and packing should dissolve - [place] nasal spray q2h scheduled while awake - [place] gel (sodium chloride - aloe vera) for [...] Head & Neck Surgery QUESTIONS: Weekdays daytime: [facility] Otolaryngology [facility] Consult New consults, after-hours & weekends: [facility] Otolaryngology [facility] Resident Primary/Night Float ENT scheduling line: [phone] (please include in discharge paperwork as needed) Cosigned by Kaylie Saldana MD at 05/05/2023 8:56 PM DYE BOARDING MACHINE OPERATOR BOARDING MACHINE OPERATOR BOARDING MACHINE OPERATOR * Flex Parsons MD - 05/05/2023 11:15 AM CST Vascular Surgery Daily Progress Patient Name/MRN: Eriberto Chau [id number] Treatment Team: Vascular Surgery- Pager: [phone] Attending: Faustino Herrera MD Today's Date: 05/05/2023 Room/Bed: [id number] Admit Date: 05/01/2023 Code Status: Full Code [...] In: 3480.6 [I.V.:2030.6; NG/GT:510; IV Piggyback:940] Out: 98021 [Urine:39295] I/O this shift: In: 42.5 [I.V.:32.5; NG/GT:10] [...] Active Problems: Dissection of thoracoabdominal aorta (CMS/HCC) ([facility]) Problem List Cardiac and Vasculature * (Principal) [...] the false lumen. He was transferred to [facility] for further evaluation and treatment. Here, he [...] All feel these findings not to be 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 uniforms of a type a dissection, therefore no [...] Line (Completed) Dissection of thoracoabdominal aorta (CMS/HCC) ([facility]) Relevant Orders CV Hybrid Room (Default Orderable) [...] (Dr Abarca) consult Flex Parsons MD, MSc [phone] For patients or family members viewing this note through [employer] programs: This note was written as a [...] Faustino Herrera MD at 05/05/2023 12:29 PM DYE BOARDING MACHINE OPERATOR BOARDING MACHINE OPERATOR BOARDING MACHINE OPERATOR * Radha Wyatt DISTRICT EXTENSION SERVICE AGENT - 05/05/2023 11:01 AM CST EXTUBATION Situation: Per MD/CYNTHIA order, the patient was extubated without incident, and resting on 40% aerosol face mask.No signs of respiratory distress noted at this time. Plan: Continue to monitor patients respiratory status and intervene as necessary. BOARDING MACHINE OPERATOR * Mariel Pope OT - 05/05/2023 7:13 AM CST Occupational Therapy 05/05/23712 General OT Missed Visit Reason Sedated;Bedrest (intubated, sedated) BOARDING MACHINE OPERATOR * Thea Rizzo MD - 05/05/2023 12:04 [...] Continuous Infusions:clevidipine, 0-32 mg/hr, Last Rate: Stopped (05/04/23) dexmedeTOMIDine, 0-1.5 mcg/kg/hr, Last Rate: 0.8 mcg/kg/hr [...] Last Rate: 3 mL/hr (05/02/232299) Vitals: Temp: [37 ??C (98.6 ??F)-38.1 ??C [...] per 24 hour Intake 3937 ml Output 77616 ml Net -6438 ml Ventilator settings: Adult [...] HR goal <60 - esmolol gtt dc'd 2/ c/f tachyphylaxis, no changes in HR - [...] lumen, PIVx3, R radial a-line, [place], OGT Teha Zabala MD PGY-3 Anesthesiology Cosigned by aCrline Jerome MD at 05/05/2023 1:23 PM DYE BOARDING MACHINE OPERATOR BOARDING MACHINE OPERATOR BOARDING MACHINE OPERATOR Associated attestation - Carline Jerome MD - 05/05/2023 1:23 PM DYE BOARDING MACHINE OPERATOR Attending Documentation: I have seen and examined this critically ill patient on the day of service. I have reviewed and confirmed the history, physical exam, laboratory and radiologic data with the house staff as documentedin the ICU Resident note. I have reviewed and discussed my treatment plan with the ICU team and other medical/business solutions consultant staff, making frequent assessments and decisions [...] 0-32 mg/hr, Last Rate: 4 mg/hr (05/04/23 0800) dexmedeTOMIDine, 0-1.5 mcg/kg/hr, Last Rate: 0.4 mcg/kg/hr (05/04/23 0800) esmolol, 0-300 mcg/kg/min, Last Rate: 300 mcg/kg/min (05/04/23 1018) fentaNYL, 0-400 mcg/hr, Last Rate: 125 mcg/hr (05/04/23 0800) ketamine, 50 mg/hr, Last Rate: 50 mg/hr (05/04/23 0800) Lactated Ringer's, 10 mL/hr, Last Rate: 10 mL/hr (05/03/23 1900) sodium chloride 0.9%, 3-12 mL/hr, Last Rate: 3 mL/hr (05/03/23 1900) sodium chloride 0.9%, 3-12 [...] CREATININE mg/dL 1.38* 1.27 1.36* -- 1.19 [id number] mL/min/1.73 m2 71 78 72 -- 84 [...] (H) 05/04/2023 NURSING ASSESSMENT: Last BM Date: (PEDIATRIC INTENSIVE PHYSICIAN) Bowel Sounds (All Quadrants): Hypoactive Toni Scale [...] (236 lb 15.9 oz) ESTIMATED NEEDS: Kcal/kg: (3107-1515 kcal (14-18 kcal/kg BW)). Type of Weight Used for Estimated Kcals: Current Total Protein Estimated Needs (gm): 101.64 Protein Needs Based on g/k.4 Type of Weight Used forEstimated Protein : [place] Total Fluid Estimated Needs: 1815 Fluid Needs Based on : 25 ml/kg Type of Weight Used for EstimatedFluid Needs: [place] Dietary Orders (From admission, onward) Start Ordered [...] changes, Swallow function Darren Busby MS, RD, [facility], N [phone] Kst Operator-Weekend: [phone] BOARDING MACHINE OPERATOR * Flex Parsons MD - 05/04/2023 7:30 AM CST Vascular Surgery Daily Progress Patient Name/MRN: Eriberto Chau [id number] Treatment Team: Vascular Surgery- Pager: [phone] Attending: Faustino Herrera MD Today's Date: 05/04/2023 Room/Bed: [id number] Admit Date: 05/01/2023 Code Status: Full Code [...] the false lumen. He was transferred to [facility] for further evaluation and treatment. Here, he [...] All feel these findings not to be 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 uniforms of a type a dissection, therefore no [...] consider respiratory panel Flex Parsons MD, MSc [phone] For patients or family members viewing this note through [employer] programs: This note was written as a [...] Faustino Herrera MD at 05/05/2023 12:29 PM DYE BOARDING MACHINE OPERATOR BOARDING MACHINE OPERATOR BOARDING MACHINE OPERATOR * Thea Rizzo MD - 05/04/2023 12:01 [...] chloride 0.9%, 0.5-20 mL, intra-catheter, Q8H [facility] Continuous Infusions:clevidipine, 0-32 mg/hr, Last Rate: 6 mg/hr (05/04/23 0042) dexmedeTOMIDine, 0-1.5 mcg/kg/hr, Last Rate: 0.4 mcg/kg/hr (05/04/23 0000) esmolol, 0-300 mcg/kg/min, Last Rate: 50 mcg/kg/min [...] Pacing: -- Cardiac Rhythm: Normal sinus rhythm (12/06 0000) Pacer Mode: -- Physical exam: Physical [...] Recent Labs Lab Units 05/04/23 0120 05/03/23 2032 05/03/23 1750 PH ART 7.32* 7.37 7.38 PCO2 [...] Carline Jerome MD at 05/04/2023 9:26 AM DYE BOARDING MACHINE OPERATOR BOARDING MACHINE OPERATOR BOARDING MACHINE OPERATOR Associated attestation - Carline Jerome MD - 05/04/2023 9:26 AM DYE BOARDING MACHINE OPERATOR Attending Documentation: I have seen and examined this critically ill patient on the day of service. I have reviewed and confirmed the history, physical exam, laboratory and radiologic data with the house staff as documentedin the ICU Resident note. I have reviewed and discussed my treatment plan with the ICU team and other medical/business solutions consultant staff, making frequent assessments and decisions [...] far. Mild thrombocytopenia: no clinical concern. Cont [facility] for DVT prophylaxis. Carline Jerome MD * Timmy Rosales - 05/03/2023 3:56 PM CST Fr Timmy Rosales [phone] 05/03/23 1500 Time Spent Start Time 1210 Stop Time 1220 Time Calculation (min) 10 min Patient Spiritual Assessment Spirituality Assessed Yes Voodoo Affiliation Baptist Active in Faith Yes Spiritual Needs Prayer Clinical Encounter Type Visited With Patient and family together Response Type Continuing visit Routine Visit Follow-up Continue Visiting Yes Reason for visit Sacramental;Support Outcomes and Progress Aligning care with patient's values Achieved Preserve dignity and respect Achieved Demonstrating care and respect Achieved Interventions Interventions Active listening;Offer emotional support;Offer spiritual/pentecostalism support;Prayer (Benediction) BOARDING MACHINE OPERATOR * Flex Parsons MD - 05/03/2023 6:24 AM CST Vascular Surgery Daily Progress Patient Name/MRN: Eriberto Chau [id number] Treatment Team: Vascular Surgery- Pager: [phone] Attending: Alonzo Duncan MD Today's Date: 05/03/2023 Room/Bed: [id number] Admit Date: 05/01/2023 Code Status: Full Code [...] the false lumen. He was transferred to [facility] for further evaluation and treatment. Here, he [...] All feel these findings not to be 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 uniforms of a type a dissection, therefore no [...] support per ICU Flex Parsons MD, MSc [phone] For patients or family members viewing this note through [employer] programs: This note was written as a [...] Faustino Herrera MD at 05/03/2023 8:06 AM DYE BOARDING MACHINE OPERATOR BOARDING MACHINE OPERATOR BOARDING MACHINE OPERATOR * Thea Rizzo MD - 05/03/2023 12:10 [...] Lido gtt - Coreg to 25 BID 05/02 PM - s/p TEVAR w vascular - [...] Ringer's, 10 mL/hr, Last Rate: 10 mL/hr (05/03/23) lidocaine, 1 mg/kg/hr ([place]), Last Rate: Stopped (05/02/23 1632) propofol, 0-50 mcg/kg/min, Last Rate: 50 mcg/kg/min (05/03/23) sodium chloride 0.9%, 3-12 mL/hr, Last Rate: 3 mL/hr (05/03/23) sodium chloride 0.9%, 3-12 mL/hr, Last Rate: [...] Pacing: -- Cardiac Rhythm: Normal sinus rhythm (12/05 0000) Pacer Mode: -- Physical exam: Physical [...] Labs Lab Units 05/03/23 0010 05/02/23 2316 05/02/23221205/02/23 21305/02/23212805/02/23 1600 WBC K/cumm 14.6* -- -- 12.4* [...] Carline Jerome MD at 05/03/2023 2:29 PM DYE BOARDING MACHINE OPERATOR BOARDING MACHINE OPERATOR BOARDING MACHINE OPERATOR Associated attestation - Carline Jerome MD - 05/03/2023 2:29 PM DYE BOARDING MACHINE OPERATOR Attending Documentation: I have seen and examined this critically ill patient on the day of service. I have reviewed and confirmed the history, physical exam, laboratory and radiologic data with the house staff as documentedin the ICU Resident note. I have reviewed and discussed my treatment plan with the ICU team and other medical/business solutions consultant staff, making frequent assessments and decisions [...] MAR for full assessments and meds given BOARDING MACHINE OPERATOR * Ann Goldstein MD - 05/02/2023 6:39 PM CST Vascular Surgery Daily Progress Patient Name/MRN: Eriberto Chau [id number] Attending: Alonzo Duncan MD Today's Date: 05/02/2023 [...] Route Frequency Provider Last Rate Last Admin [MAR Hold] acetaminophen (TYLENOL) tablet 1,000 mg 1,000 mg oral Q6H [facility] Manuel Jarrett MD1,000 mg at 05/02/23 1225 [...] Herrera MD 1,000 mL at 05/02/23 1755 [JUL Hold] HYDROmorphone (DILAUDID) injection 0.4 mg 0.4 mg intravenous Q2H PRN Ann Clay MD 0.4 mg at 05/02/23 1511 [JUL Hold] lidocaine (ASPERCREME) 4 % patch 2 patch 2 patch transdermal Q24H Ann Clay MD 2 patch at 05/02/23 0311 lidocaine in dextrose 5% 2 g/250 mL (8 mg/mL) infusion (premix) 1 mg/kg/hr ([place]) intravenous Continuous Manuel Jarrett MD Stopped at 05/02/23 1632 nitroglycerin injection 100 mcg/mL in D5W 10 mL PRN Faustino Herrera MD 200 mcg at 05/02/23 1827 [JUL Hold] ondansetron (ZOFRAN) injection 4 mg 4 mg intravenous Q6H PRN Manuel Jarrett MD 4 mg at 05/02/23 1001 [MAR Hold] oxyCODONE (ROXICODONE) tablet 10 mg 10 mg oral Q4H PRN Manuel Jarrett MD 10 mg at 05/02/23 1306 [JUL Hold] senna (SENOKOT) tablet 1 tablet 1 tablet oral BID Manuel Jarrett MD 1 tablet at107/03/22 0838 Or [MAR Hold] senna 1.76 mg/mL syrup 8.8 mg 8.8 mg feeding tube BID Manuel Jarrett MD [MAR Hold] sodium chloride 0.9% flush 0.5-20 mL 0.5-20 mL intra-catheter Q8H SUSAN Manuel Jarrett MD 10 mL at 05/02/23 0509 [JUL Hold] sodium chloride 0.9% flush 0.5-20 mL [...] free injection intravenous PRN Emeka Barrow MD 2 mg at 05/02/23 1647 niCARdipine (CARDENE) injection intravenous PRN hJ Onofre CHILDHOOD TEACHER 100 mcg at 05/02/23 1822 phenylephrine (KARLI-SYNEPHRINE) 1 mg/10 mL (100 mcg/mL) in sodium chloride 0.9% (premix) intravenousPRN Emeka Barrow MD 100 mcg at 05/02/23 1703 phenylephrine (KARLI-SYNEPHRINE) 1 mg/10 mL (100 mcg/mL) in sodium chloride 0.9% (premix) intravenousContinuous PRN Jh Onofre, CHILDHOOD TEACHER Stopped at 05/02/23 1713 propofoL (DIPRIVAN) 10 [...] repair Ann Goldstein MD Vascular Surgery Fellow [phone] Cosigned by Alonzo Duncan MD at 05/03/2023 4:20 PM DYE BOARDING MACHINE OPERATOR BOARDING MACHINE OPERATOR BOARDING MACHINE OPERATOR * Faustino Herrera MD - 05/02/2023 5:39 [...] his mother, specifically mentioning stroke, paralysis, rTAAD, [place], need for future procedures, arterial rupture. He gave consent for surgery. BOARDING MACHINE OPERATOR * Nicole Bergman RN - 05/02/2023 4:46 PM CST Pt taken off to OR via bed and continuous cardiac monitors with gtts by OR staff. BOARDING MACHINE OPERATOR * Timmy Rosales - 05/02/2023 3:43 PM CST Timmy Bobby [phone] 05/02/23 1500 Time Spent Start Time 1220 Stop Time 1230 Time Calculation (min) 10 min Patient Spiritual Assessment Spirituality Assessed Yes Voodoo Affiliation Baptist Active in Faith Yes Spiritual Needs Anointing;Prayer Clinical Encounter Type Visited With Patient and family together Response Type Routine visit Routine Visit Introduction Reason for visit Sacramental;Support Sacramental Encounters Sacrament of Sick-Anointing Anointed Outcomes and Progress Aligning care with patient's values Achieved Preserve dignity and respect Achieved Demonstrating care and respect Achieved Interventions Interventions Active listening;Offer emotional support;Prayer (Benediction) BOARDING MACHINE OPERATOR * Mariel Pope OT - 05/02/2023 3:38 PM CST Occupational Therapy 05/02/23 1538 General OT Missed Visit Reason Bedrest BOARDING MACHINE OPERATOR * Ann Clay MD - 05/02/2023 2:[address] ICU Daily Progress Shifts: Shift Options: CTI PM 1 Subjective Patient [...] Infusions:clevidipine, 0-32 mg/hr, Last Rate: 29 mg/hr (05/02/23343) esmolol, 0-300 mcg/kg/min, Last Rate: 300 mcg/kg/min (05/02/23299) sodium chloride 0.9%, 3-12 mL/hr, Last Rate: 3 mL/hr (05/02/23299) Vitals: Temp: [36.4 ??C (97.5 ??F)-36.7 ??C [...] Ventilator settings: FiO2 (%): 40 % (05/02 204) Hemodynamic parameters: PAP: -- CVP: -- PCWP: -- CO: -- CI: -- SVO2: -- Pacemaker Overdrive Pacing: -- Cardiac Rhythm: Normal sinus rhythm (05/01 2300) Pacer Mode: -- Physical exam: Constitutional: General: [...] Carline Jerome MD at 05/02/2023 8:44 AM DYE BOARDING MACHINE OPERATOR BOARDING MACHINE OPERATOR BOARDING MACHINE OPERATOR BOARDING MACHINE OPERATOR Associated attestation - Carline Jerome MD - 05/02/2023 8:44 AM DYE BOARDING MACHINE OPERATOR Attending Documentation: I have seen and examined this critically ill patient on the day of service. I have reviewed and confirmed the history, physical exam, laboratory and radiologic data with the house staff as documentedin the ICU Resident note. I have reviewed and discussed my treatment plan with the ICU team and other medical/business solutions consultant staff, making frequent assessments and decisions [...] documented in this encounter H&P Notes * Aroldo Kaplan MD - 05/01/2023 12:[address] [...] around 1AM with symptoms and presented to [facility]. 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 This time was in addition to and separate from care provided by other practitioners on this day of service. I spent time reviewing and interpreting data from bedside monitors, laboratory results, and imaging, I spent time discussing the management of this critically ill patient with consultants and the medical staff and I spent time documenting in the medical record BOARDING MACHINE OPERATOR * Dalton Locke MD - 05/12/2023 4:16 [...] plan with the patient's team and other medical/business solutions consultant staff. This time was in addition to and separate from care provided by other practitioners on this day of service. I spent time reviewing and interpreting data from bedside monitors, laboratory results, and imaging, I spent time discussing the management of this critically ill patient with consultants and the medical staff and I spent time documenting in the medical record BOARDING MACHINE OPERATOR * Dalton Locke MD - 2023 4:16 [...] plan with the patient's team and other medical/business solutions consultant staff. This time was in addition to and separate from care provided by other practitioners on this day of service. I spent time reviewing and interpreting data from bedside monitors, laboratory results, and imaging, I spent time discussing the management of this critically ill patient with consultants and the medical staff and I spent time documenting in the medical record BOARDING MACHINE OPERATOR * Dalton Locke MD - 05/10/2023 4:14 [...] plan with the ICU team and other medical/business solutions consultant staff, making frequent assessments and decisions [...] spent time documenting in the medical record BOARDING MACHINE OPERATOR * Dalton Locke MD - 05/09/2023 3:58 [...] plan with the ICU team and other medical/business solutions consultant staff, making frequent assessments and decisions [...] spent time documenting in the medical record BOARDING MACHINE OPERATOR * Dalton Locke MD - 05/08/2023 2:53 [...] plan with the ICU team and other medical/business solutions consultant staff, making frequent assessments and decisions [...] spent time documenting in the medical record BOARDING MACHINE OPERATOR BOARDING MACHINE OPERATOR * Dalton Locke MD - 05/07/2023 2:55 [...] plan with the ICU team and other medical/business solutions consultant staff, making frequent assessments and decisions [...] spent time documenting in the medical record BOARDING MACHINE OPERATOR * Thea Rizzo MD - 05/07/2023 1:11 PM CSTAssociated Order(s): Arterial Line Insertion Post-Procedure Diagnose(s): Dissection of thoracoabdominal aorta (CMS/HCC) (HCC) Arterial Line Insertion Date/Time: 05/07/2023 1:42 PM Performed by: Thea Rizzo MD Authorized by: Thea Rizzo MD [place] Protocol: Informed consent: Risks, benefits, alternatives discussed and patient/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 uniforms/guardian agrees and accepts Patient's stated name/ matches [...] Dalton Locke MD at 05/08/2023 1:47 PM DYE BOARDING MACHINE OPERATOR BOARDING MACHINE OPERATOR BOARDING MACHINE OPERATOR Associated attestation - Dalton Locke MD - 05/08/2023 1:47 PM DYE BOARDING MACHINE OPERATOR Attending Procedure Attestation: I was present for, and directly supervised the procedure as documented by the Resident. Silverio Locke MD Risk And Insurance Manager Department of Anesthesiology * Michael Hamm MD - 05/07/2023 2:50 AM CSTAssociated Order(s): Arterial Line Insertion Post-Procedure Diagnose(s): Dissection of aorta, unspecified portion of aorta (HCC) Arterial Line Insertion Date/Time: 05/07/2023 2:50 AM Performed by: Michael Hamm MD Authorized by: Michael Hamm MD [place] Protocol: RN Notified of Procedure: yes Informed [...] Dalton Locke MD at 05/08/2023 1:47 PM DYE BOARDING MACHINE OPERATOR BOARDING MACHINE OPERATOR BOARDING MACHINE OPERATOR * Dustin Souza DO - 05/06/2023 9:35 PM CSTAssociated Order(s): Intubation Post-Procedure Diagnose(s): Dissection of aorta, unspecified portion of aorta (HCC) Intubation Date/Time: 05/06/2023 9:36 PM Performed by: Dustin Souza DO Authorized by: Dustin Souza DO [place] Protocol: RN Notified of Procedure: yes Informed [...] Dalton Locke MD at 05/08/2023 1:47 PM DYE BOARDING MACHINE OPERATOR BOARDING MACHINE OPERATOR BOARDING MACHINE OPERATOR * Gonzalez Eduardo MD - 05/05/2023 11:32 [...] Jaden Smith MD at 05/06/2023 2:52 PM DYE BOARDING MACHINE OPERATOR BOARDING MACHINE OPERATOR BOARDING MACHINE OPERATOR * Shira Dodson MD - 05/05/2023 10:05 PM CSTAssociated Order(s): Lumbar Drain Post-Procedure Diagnose(s): Dissection of aorta, unspecified portion of aorta (HCC) Lumbar Drain Date/Time: 05/05/2023 10:05 AM Performed by: Shira Dodson MD Authorized by: Shira Dodson MD [place] Protocol: RN Notified of Procedure: yes Informed [...] of neurosurgical team performing procedure under sedation. BOARDING MACHINE OPERATOR * Carline Jerome MD - 05/05/2023 1:24 [...] plan with the ICU team and other medical/business solutions consultant staff, making frequent assessments and decisions [...] spent time documenting in the medical record BOARDING MACHINE OPERATOR * Carline Jerome MD - 05/04/2023 3:00 [...] plan with the ICU team and other medical/business solutions consultant staff, making frequent assessments and decisions [...] spent time documenting in the medical record BOARDING MACHINE OPERATOR * Thea Rizzo MD - 05/03/2023 9:57 PM CSTAssociated Order(s): Central Line Insertion Post-Procedure Diagnose(s): Dissection of aorta, unspecified portion of aorta (HCC) Central Line Insertion Date/Time: 05/03/2023 9:57 PM Performed by: Thea Rizzo MD Authorized by: Thea Rizzo MD [place] Protocol: RN Notified of Procedure: yes Informed consent: Risks, benefits, alternatives discussed and patient/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 uniforms/guardian agrees and accepts Patient's stated name/ matches [...] Carline Jerome MD at 05/04/2023 3:01 PM DYE BOARDING MACHINE OPERATOR BOARDING MACHINE OPERATOR BOARDING MACHINE OPERATOR * Carline Jerome MD - 05/03/2023 2:29 [...] plan with the ICU team and other medical/business solutions consultant staff, making frequent assessments and decisions [...] spent time documenting in the medical record BOARDING MACHINE OPERATOR * Carline Jerome MD - 05/02/2023 5:26 [...] plan with the ICU team and other medical/business solutions consultant staff, making frequent assessments and decisions [...] spent time documenting in the medical record BOARDING MACHINE OPERATOR documented in this encounter Consult Notes * [...] was transferred from the outside hospital to [facility] for further management. On arrival at [facility] at 5:00 a.m. blood pressure 187/118 [...] consulted and placed a spinal drain. MR I reported displacement of the cauda equina nerve [...] 84 86 96 98 Resp: 18 18 Temp: 37.8 ??C (100 ??F) (!) 38 [...] right costophrenic angle is excluded from the [id number]-octk. No pneumothorax. Dictated by: Chris Turner MD [...] by: Aaron Schafer M.D. Echocardiogram report reviewed [id number] left ventricular Left ventricular ejection fraction reported [...] seeing him for consultation. Joaquín Abarca MD BOARDING MACHINE OPERATOR * Gardenia Resendiz LCSW - 05/06/2023 11:39 AM CSTAssociated Order(s): IP CONSULT TO SOCIAL WORK Social work acknowledges order for patient's family seeking additional community resources. Social work spoke with patient's significant other Tania ([phone]). She stated that the house hold consists of patient, herself and 7 children. Both herself and patient work, however it is uncertain how long patient will be unable to work. Patient does not have any short term or detention benefits through his employer. Patient has already applied for food stamps, application is pending. Social work discussed referrals being sent through [employer] for mortgage payment assistance and food assistance, Tania provided consent. Referrals sent to [facility] and [place] for mortgage assistance and [employer] for food assistance. No other social work needs at this time. Gardenia Resendiz LCSW BOARDING MACHINE OPERATOR * Dewayne Looney MD - 05/06/2023 8:38 [...] 1,000 mg 1,000 mg oral Q6H [facility] aspirin chewable tablet 81 mg 81 mg oral Daily bumetanide (BUMEX) 0.25 mg/mL injection 2 mg 2 mg intravenous Q6H [facility] carvediloL (COREG) tablet 50 mg 50 mg oral BID chlorhexidine (PERIDEX) 0.12 % solution 15 mL 15 mL swish & spit BID dilTIAZem (CARDIZEM) injection 15 mg 15 mg intravenous Q8H docusate (COLACE) 10 mg/mL oral liquid 100 mg 100 mg oral BID [Held by Provider] heparin 5,000 unit/mL injection 5,000 Units 5,000 Units subcutaneous Q8H [facility] lidocaine (ASPERCREME) 4 % patch 2 patch [...] 600 mg 600 mg intravenous Q12H [facility] lisinopriL (PRINIVIL,ZESTRIL) tablet 20 mg 20 mg oral Daily meropenem (MERREM) 1,000 mg/110 mL in sodium chloride 0.9% (premix) 1,000 mg 1,000 mg intravenous Q8H [facility] metoprolol (LOPRESSOR) tablet 100 mg 100 mg [...] 0.5-20 mL 0.5-20 mL intra-catheter Q8H SUSAN Continuous Medications: Current Facility-Administered Medications Medication Dose [...] please contact neurology consults senior resident at [phone] and specify that this consult was staffed with Consult Team A. Dewayne Looney MD Resident Physician Neurology, PGY-4 05/06/23 Cosigned by Bridgett Gonzalez MD at 05/06/2023 10:47 PM DYE BOARDING MACHINE OPERATOR BOARDING MACHINE OPERATOR BOARDING MACHINE OPERATOR Associated attestation - Bridgett Gonzalez MD - 05/06/2023 10:47 PM DYE BOARDING MACHINE OPERATOR Attending Documentation: I have seen and examined [...] NEUROSURGERY Neurosurgery Consultation Patient: Eriberto Chau CSN: [id number] : 1990 Admission date: 05/01/2023 Length of [...] patient's primary contact is his mother Meron ([phone]). Family history: No family history on file. [...] discussed with the chief resident and attending vocational aide. Carlos Alberto Nix MD PhD Cosigned by Jaden Smith MD at 05/06/2023 11:37 PM DYE BOARDING MACHINE OPERATOR BOARDING MACHINE OPERATOR BOARDING MACHINE OPERATOR BOARDING MACHINE OPERATOR BOARDING MACHINE OPERATOR BOARDING MACHINE OPERATOR BOARDING MACHINE OPERATOR Associated attestation - Jaden Smith MD - 05/06/2023 11:37 PM DYE BOARDING MACHINE OPERATOR I have seen and examined the patient [...] found Requesting Team: Anesthesia Requesting Provider: Dr. Alex Vijaya Chau is a 32 y.o. male who is seen in consultation for epistaxis. Patient underwent thoracic aortic endovascular repair subclavian artery stent placement during which he was kept on heparin, and reversed with protamine at the end of the case. Per Anesthesia CHILDHOOD TEACHER report, the patient began having left- sided [...] kept intubated and transferred to the MICU. -[place] nasal spray QID, [place] nasal gel around nares BID to keep [...] during daytime hours: [facility] > Otolaryngology > [facility] Established Consults Weekends or after 6pm M-F: [facility]>Otolaryngology>[facility] Resident [facility] Primary or ENT consult phone: Cosigned by Kaylie Saldana MD at 05/05/2023 8:49 PM DYE BOARDING MACHINE OPERATOR BOARDING MACHINE OPERATOR BOARDING MACHINE OPERATOR Associated attestation - Kaylie Saldana MD - 05/05/2023 8:49 PM DYE BOARDING MACHINE OPERATOR I have seen and examined the patient [...] the false lumen. He was transferred to [facility] for further evaluation and treatment. Here, he [...] tablet 1,000 mg, 1,000 mg, oral, Q6H [facility]iza Burk William, MD, 1,000mg at 05/02/23 1225 Carrier Fluids [...] mL (8 mg/mL) infusion (premix), 1 mg/kg/hr ([place]), intravenous, Continuous, Manuel Jarrett MD, Last Rate: [...] AM Result Value Ref Range Product code B8212L33 Unit Number [id number] Product Blood Type APOS Dispense Status CROSSMATCHED Product code E2640P30 Unit Number [id number] Product Blood Type APOS Dispense Status CROSSMATCHED Product code L6099H53 Unit Number [id number] Product Blood Type APOS Dispense Status CROSSMATCHED Product code K2318R80 Unit Number [id number] Product Blood Type APOS Dispense Status CROSSMATCHED [...] the false lumen. He was transferred to [facility] for further evaluation and treatment. Here, he [...] All feel these findings not to be 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 uniforms of a type a dissection, therefore no [...] Mirna Sanchez MD at 05/02/2023 3:49 PM DYE BOARDING MACHINE OPERATOR BOARDING MACHINE OPERATOR BOARDING MACHINE OPERATOR * Josseline Walker MD - 05/01/2023 7:00 AM CSTAssociated Order(s): [...] around 1AM with symptoms and presented to [facility]. 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 [...] tablet 1,000 mg 1,000 mg oral Q6H Manuel Martel MD 1,000 mg at 05/01/23 1133 Carrier [...] mL intra-catheter Q8H SUSAN Manuel Jarrett MD 10mL at 05/01/23 1358 [...] IMAGING STUDY STUDY INITIALLY PERFORMED: 05/01/2023 at [facility]. TYPE OF STUDY: Multiple CT images [...] images may or may not represent the [place] source data set and thus may contain [...] IMAGING STUDY STUDY INITIALLY PERFORMED: 05/01/2023 at [facility]. TYPE OF STUDY: Multiple CT images [...] opacification/mixing occurring from likely fenestration below the [id number]. The nonopacification of the false lumen may [...] images may or may not represent the [place] source data set and thus may contain [...] only and have not been reviewed by [facility] Radiology. There will be no report generated by a [facility] Radiologist. ECG 12 lead Meron Monterroso MD [...] Alonzo Duncan MD at 05/01/2023 3:25 PM DYE BOARDING MACHINE OPERATOR BOARDING MACHINE OPERATOR BOARDING MACHINE OPERATOR documented in this encounter Nursing Notes * Nataliya English RN - 05/16/2023 4:40 PM CST DC education complete. Meds delivered from mobile pharmacy. Pt has ride here. BOARDING MACHINE OPERATOR documented in this encounter ED Notes * [...] time. Psychiatric: Mood and Affect: Mood normal. [facility] Medical Decision Making Pt is a [...] Course as of 05/01/23 0939 Time: 05/01 456 Comment: Per pre-arrival note: Pre-Arrival Note The patient is coming from [facility] accepted by Dr Granados patient has [...] ICU By: Lisa Christiansen MD Time: 05/01 0700 Comment: Have attempted to contact CTICU by calling directly, via phone consult and via cardiology consult specifying cardiothoracic surgery . Still have not been able to contact that service. By: Meron Monterroso MD Time: 05/01 07 Comment: Patient is nauseous, will try 0.625 [...] Time: 05/01 938 Comment: Per eICU attending rudolph, going to ICU By: Lisa Christiansen MD Dissection of aorta, unspecified portion of aorta (HCC) Hypertension, unspecified type Class 1 obesity with body mass index (BMI) of 30.0 to 30.9 in adult, unspecified obesity type, unspecified whether serious comorbidity present Meron Monterroso MD Resident 05/01/23700 Cosigned by Nagi Landa MD at 05/01/2023 11:33 PM DYE BOARDING MACHINE OPERATOR BOARDING MACHINE OPERATOR BOARDING MACHINE OPERATOR Associated attestation - Nagi Landa MD - 05/01/2023 11:33 PM DYE BOARDING MACHINE OPERATOR I have seen and examined the patient on 05/01/2023. I agree with the findings and plan of care as documented in the resident's note. * Otoniel Fernandez RN - 05/01/2023 5:03 AM CST Pt to the ER via EMS from OSH with complaint of chest pain. Pt arrives with complaint of chest painsince 0130 this am. 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 Pt A&Ox4, Hypertensive to 180's. BOARDING MACHINE OPERATOR * Gracie Cee RN - 05/01/2023 4:58 AM CST Bed: [facility] Expected date: 05/01/23 Expected time: 4:46 AM Means of arrival: Comments: Gracie Cee RN 05/01/23 0458 BOARDING MACHINE OPERATOR documented in this encounter Miscellaneous Notes * Result Encounter Note - Faustino Herrera MD - 05/16/2023 4:45 PM DYE BOARDING MACHINE OPERATOR CT reviewed, demonstrating interval growth. Given his SCI after index procedure, will plan to manage medically at this point. Will need repeat CTA CAP in 1 m post discharge with plans for intervention if growth persists. BOARDING MACHINE OPERATOR * Plan of Care - Nataliya English RN - 05/16/2023 4:09 PM CST Problem: Activity: Goal: Mobility will improve 05/16/2023 1609 by Nataliya English, RN Outcome: Adequate for Discharge 05/16/2023 1608 by Nataliya English, RN Outcome: Adequate for Discharge Problem: Lack [...] plan will improve 05/16/2023 1609 by Nataliya English, BRIA Outcome: Adequate for Discharge 05/16/2023 1608 by [...] had cat scan. Orders for dc placed BOARDING MACHINE OPERATOR * Assessment & Plan Note - Meron Parekh NP - 05/16/2023 10:44 AM DYE BOARDING MACHINE OPERATOR Associated Problem(s): Urinary retention Patient with urinary retention requiring straight cath X1 05/15, now voiding without any issues. - Continue Flomax. - Patient requests urology follow up, referral placed. BOARDING MACHINE OPERATOR * Plan of Care - Gladys Dietz RN - 05/16/2023 6:40 AM DYE BOARDING MACHINE OPERATOR Goals: Clinical Goals for the Shift: VSS, [...] and injury in home environment Outcome: Progressing BOARDING MACHINE OPERATOR * Plan of Gladys Iniguez RN - 05/15/2023 5:58 AM DYE BOARDING MACHINE OPERATOR Goals: Clinical Goals for the Shift: VSS, [...] and injury in home environment Outcome: Progressing BOARDING MACHINE OPERATOR * Plan of Care - Gladys Dietz RN - 05/14/2023 6:09 AM DYE BOARDING MACHINE OPERATOR Goals: Clinical Goals for the Shift: VSS, [...] prevent future skin breakdown will improve 05/14/2023 06 by Gladys Dietz RN Outcome: Progressing 05/14/2023 06 by Gladys Dietz RN Outcome: Progressing Goal: Ability to identify appropriate dietary choices will improve 05/14/2023 06 by Gladys Dietz RN Outcome: Progressing 05/14/2023 06 by Gladys Dietz RN Outcome: Progressing Problem: Nutritional: Goal: Dietary intake will improve 05/14/2023 06 by Gladys Dietz RN Outcome: Progressing 05/14/2023 06 by Gladys Dietz RN Outcome: Progressing Goal: Ability to maintain a balanced intake and output will improve 05/14/2023 06 by Gladys Dietz RN Outcome: Progressing 05/14/2023 06 by Gladys Dietz RN Outcome: Progressing Problem: Skin Integrity: Goal: Risk for impaired skin integrity will decrease 05/14/2023608 by Gladys Dietz RN Outcome: Progressing 05/14/2023 06 by Gladys Dietz RN Outcome: Progressing Goal: Ability to demonstrate warm and dry skin will improve 05/14/2023 06 by Gladys Dietz RN Outcome: Progressing 05/14/2023 06 by Gladys Dietz RN Outcome: Progressing Goal: Circulation will improve to fullest extent possible 05/14/2023608 by Gladys Dietz RN Outcome: Progressing 05/14/2023 06 by Gladys Dietz RN Outcome: Progressing Problem: Health Behavior: Goal: Understanding of discharge needs will improve 05/14/2023608 by Gladys Dietz RN Outcome: Progressing 05/14/2023 [...] factors that increase the pain will improve 05/14/2023608 by Gladys Dietz RN Outcome: Progressing 05/14/2023599 by Gladys Dietz RN Outcome: Progressing Goal: Pain level will decrease 05/14/2023608 by Gladys Dietz RN Outcome: Progressing 05/14/2023599 by Gladys Dietz RN Outcome: Progressing Problem: Lack of Knowledge: Goal: Ability to state ways to decrease the risk of falls will improve 05/14/2023608 by Gladys Dietz RN Outcome: Progressing 05/14/2023599 by Gladys Dietz RN Outcome: Progressing Problem: Safety: Goal: Will remain free from falls 05/14/2023608 by Gladys Dietz RN Outcome: Progressing 05/14/2023599 by Gladys Dietz RN Outcome: Progressing Goal: Will remain free from injury from falls 05/14/2023 0609 by Gladys Dietz RN Outcome: Progressing 05/14/2023 0600 by Gladys Dietz RN Outcome: Progressing Goal: Will remain free from falls and injury in home environment 05/14/2023 0609 by Gladys Dietz RN Outcome: Progressing 05/14/2023 0600 by Gladys Dietz RN Outcome: Progressing BOARDING MACHINE OPERATOR * Plan of Care - Josh Petersen RN - 05/13/2023 6:46 PM DYE BOARDING MACHINE OPERATOR Problem: Activity: Goal: Mobility will improve Outcome: [...] Summary: VSS, ambulatory, pain control, turns sulf BOARDING MACHINE OPERATOR * Assessment & Plan Note - Meron Parekh NP - 05/13/2023 12:49 PM DYE BOARDING MACHINE OPERATOR Associated Problem(s): HTN (hypertension) Hx of uncontrolled HTN, non-compliant to medications. - Need to avoid hypotension in post TEVAR period. - SBP goal less than 180. - Currently on Coreg 12.5mg BID. BOARDING MACHINE OPERATOR * Assessment & Plan Note - Meron Parekh NP - 05/13/2023 12:43 PM DYE BOARDING MACHINE OPERATOR Associated Problem(s): Pneumonia Tracheal aspirate 05/05 with Haemophilus Inf - susana(05/04 - 05/10), linezolid (05/04-05/06) BOARDING MACHINE OPERATOR * Assessment & Plan Note - Meron Parekh NP - 05/13/2023 12:42 PM DYE BOARDING MACHINE OPERATOR Associated Problem(s): Epistaxis Significant nose bleed in the OR requiring intra-op ENT c/s. DL performed, no other sources of bleeding visualized. ACT post protamine 149. - ENT following - ocean spray tid - no other s/s bleeding BOARDING MACHINE OPERATOR * Assessment & Plan Note - Meron Parekh NP - 05/13/2023 12:41 PM DYE BOARDING MACHINE OPERATOR Associated Problem(s): Dissection of thoracoabdominal aorta (CMS/HCC) [...] plan to discharge to home this afternoon. BOARDING MACHINE OPERATOR BOARDING MACHINE OPERATOR BOARDING MACHINE OPERATOR BOARDING MACHINE OPERATOR BOARDING MACHINE OPERATOR * Plan of Care - Vivian Wilcox RN - 05/13/2023 9:16 [...] and injury in home environment Outcome: Progressing BOARDING MACHINE OPERATOR * Plan of Ann - Veronica Savage [...] Goal: Pain level will decrease Outcome: Progressing BOARDING MACHINE OPERATOR * Plan of Veronica Lerner RN - 05/12/2023 6:24 PM CST Goals: [...] free from injury from falls Outcome: Progressing BOARDING MACHINE OPERATOR * Plan of Care - Yulisa Polk RRT - 05/12/2023 3:48 AM CST Patient did not wear hospital provided NPPV overnight. BOARDING MACHINE OPERATOR * Plan of Care - Sally Ross [...] and injury in home environment Outcome: Progressing BOARDING MACHINE OPERATOR * Plan of Care - Mateo Maza RRT - 2023 4:43 AM CST [facility] CPAP PLAN: The patient will conitnue to wear [facility] CPAP for JANELLE when sleeping. V 60 CPAP 7 cmH2O, BOARDING MACHINE OPERATOR * Plan of Care - Veronica Savage [...] pain control plan will improve Outcome: Progressing BOARDING MACHINE OPERATOR * Plan of Care - Sally Ross [...] Goal: Pain level will decrease Outcome: Progressing BOARDING MACHINE OPERATOR * Plan of Ann - Teagan Jung RRT - 05/10/2023 4:05 [...] ordered and continue to monitor the patient. BOARDING MACHINE OPERATOR * Plan of Care - lAana Yee RN - 05/09/2023 6:36 PM CST Goals: Clinical Goals for the Shift: AMP>100, pain control, Q1NV checks, clamp lumbar drain, sleep hygeine Summary: lumbar drain clamped 0800, pain controlled with medications per jul, patient drowsy but woke up often to [...] Goal: Pain level will decrease Outcome: Progressing BOARDING MACHINE OPERATOR * Plan of Care - Gardenia Resendiz LCSW - 05/09/2023 3:16 PM CST Social work received notification through [employer] [facility]. [facility] to reach out to patient/SO directly for assistance. Gardenia Resendiz LCSW BOARDING MACHINE OPERATOR * Plan of Care - Christina Jones [...] made: TBD Support following discharge: meron blankenship Mother [phone] Solange Ireland Other [phone] Transportation: ambulance Patient's Identified Problem/Goal Problem: Ensure acute medical needs are met and that patient has a safe discharge plan. Goal: Secure a discharge plan that patient/family are agreeable with and ensure patient has continuum of care. Patient and family are agreeable with plan. manager trainee will continue to follow and assist with discharge planning as needed BOARDING MACHINE OPERATOR * Plan of Care - Mateo Maza RRT - 05/09/2023 5:30 AM CST [facility] CPAP PLAN: The patient will continue to wear [facility]J CPAP when sleeping for JANELLE. BOARDING MACHINE OPERATOR * Plan of Care - Karolina Arana [...] Goal: Pain level will decrease Outcome: Progressing BOARDING MACHINE OPERATOR * Plan of Ann - Pooja Cameron RN - 05/08/2023 5:47 PM DYE BOARDING MACHINE OPERATOR Problem: Activity: Goal: Mobility will improve Outcome: [...] pain regimen, neuro changes monitored per orders BOARDING MACHINE OPERATOR * Plan of Care - Karolina Arana RN - 05/07/2023 11:26 PM DYE BOARDING MACHINE OPERATOR Problem: Activity: Goal: Mobility will improve Outcome: [...] pain control, Q1H neuro and neruvasxular checks. BOARDING MACHINE OPERATOR * Plan of Ann - Pooja Cameron RN - 05/07/2023 4:29 PM DYE BOARDING MACHINE OPERATOR Problem: Activity: Goal: Mobility will improve Outcome: [...] bumex Summary: MAP>100, pain regimen adjusted, HDS BOARDING MACHINE OPERATOR * Plan of Pooja Montalvo RN - 05/06/2023 4:42 PM DYE BOARDING MACHINE OPERATOR Problem: Activity: Goal: Mobility will improve Outcome: [...] plan vs CT, bumex given as ordered BOARDING MACHINE OPERATOR * Medical Student - Quincy De La [...] pain, abdominal pain, and SOB. 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 No evidence of type A dissection so [...] 1,000 mg 1,000 mg oral Q6H [facility] aspirin chewable tablet 81 mg 81 mg oral Daily bumetanide (BUMEX) 0.25 mg/mL injection 2 mg 2 mg intravenous Q6H [facility] carvediloL (COREG) tablet 50 mg 50 mg oral BID chlorhexidine (PERIDEX) 0.12 % solution 15 mL 15 mL swish & spit BID dilTIAZem (CARDIZEM) injection 15 mg 15 mg intravenous Q8H docusate (COLACE) 10 mg/mL oral liquid 100 mg 100 mg oral BID [Held by Provider] heparin 5,000 unit/mL injection 5,000 Units 5,000 Units subcutaneous Q8H [facility] lidocaine (ASPERCREME) 4 % patch 2 patch [...] 600 mg 600 mg intravenous Q12H [facility] lisinopriL (PRINIVIL,ZESTRIL) tablet 20 mg 20 mg oral Daily meropenem (MERREM) 1,000 mg/110 mL in sodium chloride 0.9% (premix) 1,000 mg 1,000 mg intravenous Q8H [facility] metoprolol (LOPRESSOR) tablet 100 mg 100 mg [...] 0.5-20 mL 0.5-20 mL intra-catheter Q8H [facility] Continuous Medications: Current Facility-Administered Medications Medication Dose Route Frequency Last Admin clevidipine 0-32 mg/hr intravenous Titrated Stopped at 05/06/23 0900 dexmedeTOMIDine 0-1.5 mcg/kg/hr intravenous Titrated 0.7 mcg/kg/hr at 05/06/23 0900 Lactated Ringer's 10 mL/hr intravenous Continuous 10 mL/hr at 05/06/23 0900 sodium chloride 0.9% 3-12 mL/hr intra-catheter Continuous 3 mL/hr at 05/06/23 0900 sodium chloride 0.9% 3-12 mL/hr intra-catheter Continuous [...] Max: 100 % Most Recent: Vitals: 05/06/23 0900 BP: Pulse: 82 Resp: 17 Temp: 37.4 [...] Review: Laboratory Data Recent Labs Lab Units 05/06/2313105/06/2312705/05/[id number]/05/[id number]/05/231105/04/23 0303 05/04/23 0120 WBC K/cumm -- 23.8* [...] interval not displayed. Recent Labs Lab Units 05/06/2313105/05/[id number]/05/[id number]/05/231105/04/2330205/04/230 05/03/23 0328 05/03/23 0010 SODIUM mmol/L -- [...] visit. Assessment /Plan ASSESSMENT AND PLAN Eriberto Chau is a 32 y.o. male [...] the interim, please contact neurology consults at [phone] (senior) and specify that this consult was staffed with Consult Team A. Quincy De La Cruz Medical Student Cosigned by Bridgett Gonzalez MD at 05/06/2023 10:50 PM DYE BOARDING MACHINE OPERATOR BOARDING MACHINE OPERATOR BOARDING MACHINE OPERATOR Associated attestation - Bridgett Gonzalez MD - 05/06/2023 10:50 PM DYE BOARDING MACHINE OPERATOR Attending Documentation: I have seen and examined the patient on 05/06/23. Please refer to resident note for formal recommendations. Bridgett Gonzalez MD, MSc * Plan of Care - Nella Griffin RN - 05/05/2023 3:59 PM DYE BOARDING MACHINE OPERATOR Goals: Clinical Goals for the Shift: BP/HR [...] pain management regimen will improve Outcome: Progressing BOARDING MACHINE OPERATOR * Plan of Care - Nikky Portillo [...] continue to monitor and evaluate the patient BOARDING MACHINE OPERATOR * Plan of Care - Ana Yap [...] wean ventilator as tolerated, monitor labs, diurese BOARDING MACHINE OPERATOR * Plan of Care - Mateo Maza [...] settings and continue to monitor the patient BOARDING MACHINE OPERATOR * Plan of Care - Jill Henning RN - 05/03/2023 7:27 PM DYE BOARDING MACHINE OPERATOR Goals: Clinical Goals for the Shift: wean to extubate, BP and HR control Summary: Unable to extubate this shift, remains on esmolol for HR control, clevidipine drip for BP management. BOARDING MACHINE OPERATOR * Plan of Care - Mateo Maza RRT - 05/03/2023 5:46 AM CST SAT/SBT WEAN SAFETY SCREEN for (SBT): FAIL - PEEP: PEEP > 70osA1D. (Patient's PEEP = 12 cm H20). SBT OUTCOME: FAIL - Safety Screen Failure Excluded Patient From Spontaneous Breathing Trial PURSUE EXTUBATION: NO - Failed SAFETY Screen. PLAN: Due to Safety Screen failure, maintain current settings and continue to monitor the patient BOARDING MACHINE OPERATOR * Plan of Care - Mateo Maza RRT - 05/02/2023 10:30 PM CST IMPRESSION: Patient had possible intermittent bronchospasms according to anesthesia. Patient would drop SPO2 while wheezing. Anesthesia said albuterol was very helpful . Plan: Q4 albuterol for intermittent bronchospasm. BOARDING MACHINE OPERATOR * Perioperative Nursing Note - Radha Sparks RN - 05/02/2023 8:35 PM DYE BOARDING MACHINE OPERATOR 2033 Patient began coughing, right nare started bleeding. ENT called back to room. 2044 Teagan Kwong, fellow back to room. Patient suctioned and floseal placed inside nose. 2049 1mL air removed from TR Band, 4mL total left in band at this time. BOARDING MACHINE OPERATOR * Perioperative Nursing Note - Radha Sparks RN - 05/02/2023 8:30 PM DYE BOARDING MACHINE OPERATOR 2019 intraoperative note: ENT fellow in to see patient for left nasal bleeding. Silver nitrate stick used on anterior active oozing and nare was packed with gelfoam and surgicel. 2029 1mL air removed from TR Band, total of 5mL air at this time. BOARDING MACHINE OPERATOR * Perioperative Nursing Note - Radha Sparks RN - 05/02/2023 8:10 PM DYE BOARDING MACHINE OPERATOR 2009 intraoperative note: 1mL air removed from TR Band, total of 6 remaining. BOARDING MACHINE OPERATOR * Perioperative Nursing Note - Radha Sparks RN - 05/02/2023 7:39 PM DYE BOARDING MACHINE OPERATOR 1908 Intraoperative note: TR Band placed left radial per Dr. Herrera. Total of 8mL air placed in band. 1939: 1mL air removed from band, total air remaining 7mL. BOARDING MACHINE OPERATOR * Op Note - Faustino Herrera MD - 05/02/2023 5:45 PM CST SURGEON Faustino Herrera MD VAULT MAKER Ann Goldstein MD ANESTHESIA General. PREOPERATIVE DIAGNOSIS [...] Repair of thoracic aortic dissection with a [facility] thoracic branched endograft and left subclavian stent [...] of the ultrasound was placedon the patient[facility]s [facility] chart. Left common femoral artery access was obtained.The needle was seen entering the artery and flow in the artery was noted. Two proglides were placed in the pre-close technique. The patient was systemically anticoagulated. We percutaneously accessed the left radial artery under real-time ultrasound guidance, and advanced a wire and a 4 Qatari catheter into the aortic arch. Guidewires were passed to the ascending aorta and catheters advanced over the guidewires into the aorta from the femoral level and we advanced the intravascular ultrasound over thisto confirm that we were in the true lumen. We then sequentially dilated and advanced a 22 Qatari [facility] DrySeal into the proximal descending aorta. We then advanced a snare from the DrySeal, and snareda jag wire which had been advanced from the left radial approach. This was then externalized both the left radial and left femoral approach. We then advanced a 31 mm [facility] thoracic branched endograft after cannulating both hypo tube as well as the main lumen. This was advanced into the aortic arch. D iagnostic ascending and aortic arch angiography were performed to delineate the anatomy, and the positions were noted. We then deployed this in zone 2, and did not balloon mold this given the dissection. We used the 4 Qatari sheath to perform a diagnostic angiogram of [...] I was present for the entire procedure SPIN INSTRUCTOR MEASURES The patient received 2 g of Ancef within 60 minutes of procedure time. We utilized approximately 39cc of Optiray contrast and fluoroscopy time was 14.4 minutes (1359 mGy). . BOARDING MACHINE OPERATOR * Brief Op Note - Rosey Fine MD - 05/02/2023 5:45 PM DYE BOARDING MACHINE OPERATOR Operative Progress Note Surgical Team: Surgeon(s) and Role: * Faustino Herrera MD - Primary * Brynn Lazo MD - Resident - Assisting * Rosey Fine MD - Fellow * Ann Goldstein MD - Fellow Anesthesiologist: Ney Alex MD; Dalton Locke MD CHILDHOOD TEACHER: Heber Fernández CRNA; Jh Onofre CRNA Surfboard Maker: Emeka Barrow MD Curling Machine Operator: Radha Grullon RN Curling Machine Operator Relief: Jill Mace RN; Radha Sparks, RN Scrub Relief: Vivian Mcgregor RN Scrub: Nilson Wilson ST Curling Machine Operator Second: Natty Parker RN FLOAT: Essie Velazquez ST CV Edge Banding Machine Offbearer: Aman Frederick, RT DATE OF SURGERY : 05/02/2023 Preoperative Diagnosis: Pre-op Diagnosis * 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 RENA at end of case showed no abnormalities of the visualized ascending aorta. Estimated Blood Loss: 10 mL Intraoperative Fluids: 1L Specimens: No specimen collected in procedure Implants: Implant Name Type Inv. Item Serial No. Fare Collector Lot No. LRB [id number]. Used Action WI[employer] CLSR PERCLOSE PROSTYLE SUT-MEDIATD CLOSURE-REPAIR SYS 32548-00 - [id number] Closure Device WILEY [employer] CLSR PERCLOSE PROSTYLE SUT-MEDIATD CLOSURE-REPAIR SYS 87974-66 [employer] [id number] Left 3 Implanted [employer] Stent Graft Aortic Covered Tag [id number] Eptfe Nitinol [id number] - [id number] - [id number] Graft [employer] Stent Graft Aortic Covered Tag [id number] Eptfe Nitinol [id number] [employer] N/A 1 Implanted [employer] Stent Graft Thoracic Side Branch Tag [id number] Eptfe Nitinol [id number] - [id number] - [id number] Stent [employer] Stent Graft Thoracic Side Branch [id number] Eptfe Nitinol [id number] [employer] Left 1 Implanted Blood/Blood Products Transfused: None Complications: None Condition on Discharge from the operating room was stable. Palpable DPs and PTs bilaterally. Rosey Fine MD Date: 05/02/2023 Time: 7:51 PM Cosigned by Faustino Herrera MD at 05/03/2023 8:06 AM DYE BOARDING MACHINE OPERATOR BOARDING MACHINE OPERATOR BOARDING MACHINE OPERATOR * Assessment & Plan Note - Gladys Gallagher NP - 05/02/2023 2:02 PM DYE BOARDING MACHINE OPERATOR Associated Problem(s): Dissection of aorta, unspecified portion of aorta (HCC) 32y/o male with uncontrolled HTN who presented to an OSH ER with acute onset shortness of breath, chest pain and back pain. 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 He was transferred to [facility] for further evaluation and treatment. Here, he [...] All feel these findings not to be 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 uniforms of a type a dissection, therefore no [...] findings of HFrEF with LVEF of 41%. BOARDING MACHINE OPERATOR * Plan of Care - Nicole Bergman [...] Goal: Pain level will decrease Outcome: Progressing BOARDING MACHINE OPERATOR * Plan of Ann - Karolina Arana [...] Goal: Pain level will decrease Outcome: Progressing BOARDING MACHINE OPERATOR * Plan of Care - Taco Cancino, DISTRICT EXTENSION SERVICE AGENT - 05/02/2023 2:05 AM CST NPPV - [...] NPPV to help with his pressures. . BOARDING MACHINE OPERATOR * Significant Event - Nicole Pearce MD [...] unremarkable. Dr. Simpson aware. 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 PMH includes obesity and hyper tension. Plan Includes: Stabilize BP, pain management, surgical consult. Patient plans to return home at discharge Primary Source of Transportation: Does the patient need discharge transport arranged?: No (05/01/23 1045) Health Insurance Coverage: Custom[employer] Medicaid Prescription Coverage: Yes Pharmacy: [email or web address] in [place]. Mom unaware of which pharmacy takes his plan currently Primary Care Provider: Used to be seen at the [facility] (formerly [facility]) but hasn't been in almost 2 years Prior to Admission: Functional Status: Independent with ADLs Primary Caregiver: Self Support System: Spouse/Significant Other, Parent (Meron Blankenship, mother [phone]. Solange Ireland, mother in law [phone]) Home Care Services: No Durable Medical Equipment: [...] Collaboration with patient, MD, direct care nurse, Collision Estimator, and other members of the health care team to assure needed interventions completed. 2. Return patient to optimal level of self-care post discharge. 3. Surgical Services Manager will follow for Discharge Planning - interventions [...] with the aftercare plan. Yadira Portillo RN BOARDING MACHINE OPERATOR * Plan of Care - Shirley Horan [...] and HR control, pain control, monitor labs BOARDING MACHINE OPERATOR * ED Procedure Note - Kameron Wadsworth MD - 05/01/2023 12:32 PM DYE BOARDING MACHINE OPERATOR Associated Order(s): Critical Care Procedure Critical Care [...] admitting team. Kameron Wadsworth MD 05/01/23 1232 BOARDING MACHINE OPERATOR * ED Procedure Note - Nagi Landa MD - 05/01/2023 7:33 AM DYE BOARDING MACHINE OPERATOR Associated Order(s): Critical Care Procedure Critical Care [...] admitting team. Nagi Landa MD 05/01/23 2334 BOARDING MACHINE OPERATOR * ED Re-evaluation Note - Kameron Wadsworth MD - 05/01/2023 7:28 AM DYE BOARDING MACHINE OPERATOR ED Re-evaluation Briefly, this is a 32-year-old [...] nicardipine dose. Kameron Wadsworth MD 05/01/23 0736 BOARDING MACHINE OPERATOR * ED Re-evaluation Note - Faustino Elias MD - 05/01/2023 6:54 AM DYE BOARDING MACHINE OPERATOR ED Re-evaluation TRANSITION OF CARE: I, Faustino Elias MD, am taking signout from previous team. I have reviewed all pertinent vital signs, allergies, and history available in the chart. Summary: 32 y.o. male hx of htn transferred from H for type B dissection accepted by CT surgery. On esmolol and nicardipine, vascular consulted, awaiting reccs Pending: Vascular reccs Dispo: admit ICU Vitals: 05/01/23 1115 BP: Pulse: 78 Resp: 14 Temp: SpO2: 93% ED Course as of 05/01/23 1116 Time: 05/01 0456 Comment: Per pre-arrival note: Pre-Arrival Note The patient is coming from [facility] accepted by Dr Granados patient has [...] present Faustino Elias MD Resident 05/01/23 1116 BOARDING MACHINE OPERATOR * ED Procedure Note - Meron Monterroso MD - 05/01/2023 5:56 AM CSTAssociated Order(s): Arterial line Procedure Arterial line Date/Time: 05/01/2023 5:56 AM Performed by: Meron Monterroso MD Authorized by: Nagi Landa MD [place] Protocol: RN Notified of Procedure: yes Indications: [...] Nagi Landa MD at 05/02/2023 12:02 AM DYE BOARDING MACHINE OPERATOR BOARDING MACHINE OPERATOR BOARDING MACHINE OPERATOR Associated attestation - Nagi Landa MD - 05/02/2023 12:02 AM DYE BOARDING MACHINE OPERATOR I was present for the grande portions [...] workup Meron Monterroso MD Resident 05/01/23 0516 Cosigned by Nagi Landa MD at 05/02/2023 12:02 AM DYE BOARDING MACHINE OPERATOR BOARDING MACHINE OPERATOR BOARDING MACHINE OPERATOR Associated attestation - Nagi Landa MD - 05/02/2023 12:02 AM DYE BOARDING MACHINE OPERATOR I have personally reviewed the tracing and the resident's interpretation. I agree with the findings. * ED Pre-Arrival Note - Gracie Cee RN - 05/01/2023 4:47 AM CST Pre-Arrival Note The patient is coming from [facility] accepted by Dr Granados patient has a Type B dissection . The patients report called to Dr Cisse . The patient has had NitroDrip started as well as Labetalol Drip Gracie Cee RN BOARDING MACHINE OPERATOR documented in this encounter Plan of Treatment Pending Results Name Type Priority Associated Diagnoses Date /Time Type and screen Lab Timed 4:10 AM DYE BOARDING MACHINE OPERATOR Lactate, whole blood Lab Timed 07/2022 5:10 PM DYE BOARDING MACHINE OPERATOR TSH reflex to free T4 Lab Routine 09/2022 12:10 AM DYE BOARDING MACHINE OPERATOR Hepatic function panel Lab Routine 12:37 AM DYE BOARDING MACHINE OPERATOR Scheduled Orders Name Type Priority Associated Diagnoses [...] ABDOMEN PELVIS Pending Discharge 05/16/2023 10:28 AM DYE BOARDING MACHINE OPERATOR EGFR Routine 05/16/2023 4:03 AM DYE BOARDING MACHINE OPERATOR CBC WITHOUT DIFFERENTIAL Routine 05/16/2023 4:03 AM DYE BOARDING MACHINE OPERATOR PHOSPHORUS Routine 05/16/2023 4:03 AM DYE BOARDING MACHINE OPERATOR MAGNESIUM Routine 05/16/2023 4:03 AM DYE BOARDING MACHINE OPERATOR BASIC METABOLIC PANEL Routine 05/16/2023 4:03 AM DYE BOARDING MACHINE OPERATOR TYPE AND SCREEN Routine 05/15/2023 5:26 AM DYE BOARDING MACHINE OPERATOR CBC WITHOUT DIFFERENTIAL STAT 05/15/2023 5:12 AM DYE BOARDING MACHINE OPERATOR EGFR Routine 05/15/2023 4:36 AM DYE BOARDING MACHINE OPERATOR CBC WITHOUT DIFFERENTIAL Routine 05/15/2023 4:36 AM DYE BOARDING MACHINE OPERATOR PHOSPHORUS Routine 05/15/2023 4:36 AM DYE BOARDING MACHINE OPERATOR MAGNESIUM Routine 05/15/2023 4:36 AM DYE BOARDING MACHINE OPERATOR BASIC METABOLIC PANEL Routine 05/15/2023 4:36 AM DYE BOARDING MACHINE OPERATOR EGFR Routine 05/14/2023 6:01 AM DYE BOARDING MACHINE OPERATOR CBC WITHOUT DIFFERENTIAL Routine 05/14/2023 6:01 AM DYE BOARDING MACHINE OPERATOR PHOSPHORUS Routine 05/14/2023 6:01 AM DYE BOARDING MACHINE OPERATOR MAGNESIUM Routine 05/14/2023 6:01 AM DYE BOARDING MACHINE OPERATOR BASIC METABOLIC PANEL Routine 05/14/2023 6:01 AM DYE BOARDING MACHINE OPERATOR XR CHEST 1 VIEW IP Routine 05/13/2023 7:10 PM DYE BOARDING MACHINE OPERATOR CRITICAL CARE Routine 05/13/2023 12:56 PM DYE BOARDING MACHINE OPERATOR Dissection of thoracoabdominal aorta (CMS/HCC) (HCC) EGFR Routine 05/13/2023 12:10 AM DYE BOARDING MACHINE OPERATOR APTT Routine 05/13/2023 12:10 AM DYE BOARDING MACHINE OPERATOR PROTIME-INR Routine 05/13/2023 12:10 AM DYE BOARDING MACHINE OPERATOR CBC WITHOUT DIFFERENTIAL Routine 05/13/2023 12:10 AM DYE BOARDING MACHINE OPERATOR TYPE AND SCREEN Timed 05/13/2023 12:10 AM DYE BOARDING MACHINE OPERATOR PHOSPHORUS Routine 05/13/2023 12:10 AM DYE BOARDING MACHINE OPERATOR MAGNESIUM Routine 05/13/2023 12:10 AM DYE BOARDING MACHINE OPERATOR BASIC METABOLIC PANEL Routine 05/13/2023 12:10 AM DYE BOARDING MACHINE OPERATOR XR CHEST 1 VIEW IP Routine 05/12/2023 7:27 PM DYE BOARDING MACHINE OPERATOR CRITICAL CARE Routine 05/12/2023 4:16 PM DYE BOARDING MACHINE OPERATOR Dissection of thoracoabdominal aorta (CMS/HCC) (HCC) CBC WITHOUT DIFFERENTIAL Routine 05/12/2023 1:58 PM DYE BOARDING MACHINE OPERATOR TRANSFUSE RED BLOOD CELLS Timed 05/12/2023 8:58 AM DYE BOARDING MACHINE OPERATOR POCT GLUCOSE DEVICE Routine 05/12/2023 8 :50 AM DYE BOARDING MACHINE OPERATOR PREPARE RBC Timed 05/12/2023 7:40 AM DYE BOARDING MACHINE OPERATOR POTASSIUM, WHOLE BLOOD STAT 05/12/2023 12:12 AM DYE BOARDING MACHINE OPERATOR EGFR Routine 05/12/2023 12:12 AM DYE BOARDING MACHINE OPERATOR APTT Routine 05/12/2023 12:12 AM DYE BOARDING MACHINE OPERATOR PROTIME-INR Routine 05/12/2023 12:12 AM DYE BOARDING MACHINE OPERATOR CBC WITHOUT DIFFERENTIAL Routine 05/12/2023 12:12 AM DYE BOARDING MACHINE OPERATOR TRIGLYCERIDES Timed 05/12/2023 12:12 AM DYE BOARDING MACHINE OPERATOR PHOSPHORUS Routine 05/12/2023 12:12 AM DYE BOARDING MACHINE OPERATOR MAGNESIUM Routine 05/12/2023 12:12 AM DYE BOARDING MACHINE OPERATOR BASIC METABOLIC PANEL Routine 05/12/2023 12:12 AM DYE BOARDING MACHINE OPERATOR XR CHEST 1 VIEW IP Routine 2023 8:01 PM DYE BOARDING MACHINE OPERATOR CRITICAL CARE Routine 2023 4:16 PM DYE BOARDING MACHINE OPERATOR Dissection of thoracoabdominal aorta (CMS/HCC) (HCC) CTA CHEST ABDOMEN PELVIS ED Urgent/IP Urgent 2023 11:16 AM DYE BOARDING MACHINE OPERATOR POTASSIUM, WHOLE BLOOD STAT 2023 12:14 AM DYE BOARDING MACHINE OPERATOR EGFR Routine 2023 12:14 AM DYE BOARDING MACHINE OPERATOR APTT Routine 2023 12:14 AM DYE BOARDING MACHINE OPERATOR PROTIME-INR Routine 2023 12:14 AM DYE BOARDING MACHINE OPERATOR CBC WITHOUT DIFFERENTIAL Routine 2023 12:14 AM DYE BOARDING MACHINE OPERATOR PHOSPHORUS Routine 2023 12:14 AM DYE BOARDING MACHINE OPERATOR MAGNESIUM Routine 2023 12:14 AM DYE BOARDING MACHINE OPERATOR BLOOD GAS, ARTERIAL STAT 2023 12:14 AM DYE BOARDING MACHINE OPERATOR BASIC METABOLIC PANEL Routine 2023 12:14 AM DYE BOARDING MACHINE OPERATOR XR CHEST 1 VIEW IP Routine 05/10/2023 9:50 PM DYE BOARDING MACHINE OPERATOR ECG 12-LEAD STAT 05/10/2023 6:19 PM DYE BOARDING MACHINE OPERATOR LIDOCAINE LEVEL Routine 05/10/2023 4:59 PM DYE BOARDING MACHINE OPERATOR CRITICAL CARE Routine 05/10/2023 4:14 PM DYE BOARDING MACHINE OPERATOR Dissection of thoracoabdominal aorta (CMS/HCC) (HCC) BLOOD CULTURE Routine 05/10/2023 12:57 PM DYE BOARDING MACHINE OPERATOR BLOOD CULTURE Routine 05/10/2023 12:57 PM DYE BOARDING MACHINE OPERATOR LACTATE Routine 05/10/2023 12:37 AM DYE BOARDING MACHINE OPERATOR POTASSIUM, WHOLE BLOOD STAT 05/10/2023 12:37 AM DYE BOARDING MACHINE OPERATOR EGFR Routine 05/10/2023 12:37 AM DYE BOARDING MACHINE OPERATOR APTT Routine 05/10/2023 12:37 AM DYE BOARDING MACHINE OPERATOR PROTIME-INR Routine 05/10/2023 12:37 AM DYE BOARDING MACHINE OPERATOR CBC WITHOUT DIFFERENTIAL Routine 05/10/2023 12:37 AM DYE BOARDING MACHINE OPERATOR TYPE AND SCREEN Timed 05/10/2023 12:37 AM DYE BOARDING MACHINE OPERATOR PHOSPHORUS Routine 05/10/2023 12:37 AM DYE BOARDING MACHINE OPERATOR MAGNESIUM Routine 05/10/2023 12:37 AM DYE BOARDING MACHINE OPERATOR BLOOD GAS, ARTERIAL STAT 05/10/2023 12:37 AM DYE BOARDING MACHINE OPERATOR HEPATIC FUNCTION PANEL Routine 05/10/2023 12:37 AM DYE BOARDING MACHINE OPERATOR BASIC METABOLIC PANEL Routine 05/10/2023 12:37 AM DYE BOARDING MACHINE OPERATOR POCT GLUCOSE DEVICE Routine 05/10/2023 12:16 AM DYE BOARDING MACHINE OPERATOR OXYHEMOGLOBIN, CENTRAL VENOUS Routine 05/09/2023 11:35 PM DYE BOARDING MACHINE OPERATOR XR CHEST 1 VIEW IP Routine 05/09/2023 9:29 PM DYE BOARDING MACHINE OPERATOR POTASSIUM, WHOLE BLOOD STAT 05/09/2023 8:16 PM DYE BOARDING MACHINE OPERATOR LIDOCAINE LEVEL Routine 05/09/2023 6:20 PM DYE BOARDING MACHINE OPERATOR CRITICAL CARE Routine 05/09/2023 3:58 PM DYE BOARDING MACHINE OPERATOR Dissection of thoracoabdominal aorta (CMS/HCC) (HCC) POTASSIUM, WHOLE BLOOD STAT 05/09/2023 12:54 PM DYE BOARDING MACHINE OPERATOR LIPASE Routine 05/09/2023 12:54 PM DYE BOARDING MACHINE OPERATOR HEPATIC FUNCTION PANEL Routine 05/09/2023 12:54 PM DYE BOARDING MACHINE OPERATOR US VEIN DUPLEX LOWER EXTREMITY BILATERAL COMPLETE ED Urgent/IP Urgent 05/09/2023 11:23 AM DYE BOARDING MACHINE OPERATOR ECG 12-LEAD Routine 05/09/2023 9:22 AM DYE BOARDING MACHINE OPERATOR POTASSIUM, WHOLE BLOOD STAT 05/09/2023 8:04 AM DYE BOARDING MACHINE OPERATOR POC BLOOD GAS AND CHEMISTRIES, ARTERIAL Routine 05/09/2023 6:22 AM DYE BOARDING MACHINE OPERATOR POTASSIUM, WHOLE BLOOD STAT 05/09/2023 12:36 AM DYE BOARDING MACHINE OPERATOR BLOOD GAS, ARTERIAL STAT 05/09/2023 12:36 AM DYE BOARDING MACHINE OPERATOR EGFR Routine 05/09/2023 12:35 AM DYE BOARDING MACHINE OPERATOR APTT Routine 05/09/2023 12:35 AM DYE BOARDING MACHINE OPERATOR PROTIME-INR Routine 05/09/2023 12:35 AM DYE BOARDING MACHINE OPERATOR CBC WITHOUT DIFFERENTIAL Routine 05/09/2023 12:35 AM DYE BOARDING MACHINE OPERATOR TRIGLYCERIDES Timed 05/09/2023 12:35 AM DYE BOARDING MACHINE OPERATOR PHOSPHORUS Routine 05/09/2023 12:35 AM DYE BOARDING MACHINE OPERATOR MAGNESIUM Routine 05/09/2023 12:35 AM DYE BOARDING MACHINE OPERATOR BASIC METABOLIC PANEL Routine 05/09/2023 12:35 AM DYE BOARDING MACHINE OPERATOR XR CHEST 1 VIEW IP Routine 05/08/2023 7:59 PM DYE BOARDING MACHINE OPERATOR POC BLOOD GAS AND CHEMISTRIES, ARTERIAL Routine 05/08/2023 7:25 PM DYE BOARDING MACHINE OPERATOR POTASSIUM, WHOLE BLOOD STAT 05/08/2023 5:39 PM DYE BOARDING MACHINE OPERATOR LIDOCAINE LEVEL Routine 05/08/2023 5:39 PM DYE BOARDING MACHINE OPERATOR CRITICAL CARE Routine 05/08/2023 2:53 PM DYE BOARDING MACHINE OPERATOR Dissection of thoracoabdominal aorta (CMS/HCC) (HCC) POTASSIUM, WHOLE BLOOD STAT 05/08/2023 11:44 AM DYE BOARDING MACHINE OPERATOR POTASSIUM, WHOLE BLOOD STAT 05/08/2023 8:02 AM DYE BOARDING MACHINE OPERATOR BLOOD GAS, ARTERIAL STAT 05/08/2023 8 :02 AM DYE BOARDING MACHINE OPERATOR POTASSIUM, WHOLE BLOOD STAT 05/08/2023 1:08 AM DYE BOARDING MACHINE OPERATOR EGFR Routine 05/08/2023 1:08 AM DYE BOARDING MACHINE OPERATOR APTT Routine 05/08/2023 1:08 AM DYE BOARDING MACHINE OPERATOR PROTIME-INR Routine 05/08/2023 1:08 AM DYE BOARDING MACHINE OPERATOR CBC WITHOUT DIFFERENTIAL Routine 05/08/2023 1:08 AM DYE BOARDING MACHINE OPERATOR PHOSPHORUS Routine 05/08/2023 1:08 AM DYE BOARDING MACHINE OPERATOR MAGNESIUM Routine 05/08/2023 1:08 AM DYE BOARDING MACHINE OPERATOR BLOOD GAS, ARTERIAL STAT 05/08/2023 1 :08 AM DYE BOARDING MACHINE OPERATOR BASIC METABOLIC PANEL Routine 05/08/2023 1:08 AM DYE BOARDING MACHINE OPERATOR POC BLOOD GAS AND CHEMISTRIES, ARTERIAL Routine 05/07/2023 8:40 PM DYE BOARDING MACHINE OPERATOR TROPONIN I HIGH-SENSITIVITY 2-HOUR Timed 05/07/2023 8:36 PM DYE BOARDING MACHINE OPERATOR XR CHEST 1 VIEW IP Routine 05/07/2023 8:26 PM DYE BOARDING MACHINE OPERATOR ECG 12-LEAD STAT 05/07/2023 6:46 PM DYE BOARDING MACHINE OPERATOR TROPONIN I HIGH-SENSITIVITY SERIES (BASELINE, 2HR, 4HR, 6HR) Routine 05/07/2023 6:15 PM DYE BOARDING MACHINE OPERATOR POTASSIUM, WHOLE BLOOD STAT 05/07/2023 5:57 PM DYE BOARDING MACHINE OPERATOR BLOOD GAS, ARTERIAL STAT 05/07/2023 5 :57 PM DYE BOARDING MACHINE OPERATOR XR CHEST 1 VIEW ED Urgent/IP Urgent 05/07/2023 4:07 PM DYE BOARDING MACHINE OPERATOR POC BLOOD GAS AND CHEMISTRIES, ARTERIAL Routine 05/07/2023 3:57 PM DYE BOARDING MACHINE OPERATOR CRITICAL CARE Routine 05/07/2023 2:55 PM DYE BOARDING MACHINE OPERATOR Dissection of thoracoabdominal aorta (CMS/HCC) (HCC) POTASSIUM, WHOLE BLOOD STAT 05/07/2023 2:42 PM DYE BOARDING MACHINE OPERATOR BLOOD GAS, ARTERIAL STAT 05/07/2023 2 :42 PM DYE BOARDING MACHINE OPERATOR FL ARTL CATHJ/CANNULJ MNTR/TRANSFUSION SPX PRQ Routine 05/07/2023 1:42 PM DYE BOARDING MACHINE OPERATOR Dissection of thoracoabdominal aorta (CMS/HCC) (HCC) APTT STAT 05/07/2023 10:37 AM DYE BOARDING MACHINE OPERATOR PROTIME-INR STAT 05/07/2023 10:37 AM DYE BOARDING MACHINE OPERATOR BLOOD GAS, ARTERIAL STAT 05/07/2023 6 :13 AM DYE BOARDING MACHINE OPERATOR POTASSIUM, WHOLE BLOOD STAT 05/07/2023 5:56 AM DYE BOARDING MACHINE OPERATOR POTASSIUM, WHOLE BLOOD STAT 05/07/2023 3:58 AM DYE BOARDING MACHINE OPERATOR FL ARTL CATHJ/CANNULJ MNTR/TRANSFUSION SPX PRQ Routine 05/07/2023 2:50 AM DYE BOARDING MACHINE OPERATOR Dissection of aorta, unspecified portion of aorta (HCC) LACTATE Routine 05/07/2023 12:35 AM DYE BOARDING MACHINE OPERATOR POTASSIUM, WHOLE BLOOD STAT 05/07/2023 12:35 AM DYE BOARDING MACHINE OPERATOR EGFR Routine 05/07/2023 12:35 AM DYE BOARDING MACHINE OPERATOR CBC WITHOUT DIFFERENTIAL Routine 05/07/2023 12:35 AM DYE BOARDING MACHINE OPERATOR TYPE AND SCREEN Timed 05/07/2023 12:35 AM DYE BOARDING MACHINE OPERATOR TRIGLYCERIDES Routine 05/07/2023 12:35 AM DYE BOARDING MACHINE OPERATOR PHOSPHORUS Routine 05/07/2023 12:35 AM DYE BOARDING MACHINE OPERATOR MAGNESIUM Routine 05/07/2023 12:35 AM DYE BOARDING MACHINE OPERATOR BLOOD GAS, ARTERIAL STAT 05/07/2023 12:35 AM DYE BOARDING MACHINE OPERATOR BASIC METABOLIC PANEL Routine 05/07/2023 12:35 AM DYE BOARDING MACHINE OPERATOR MRI SPINE TOTAL COMPLETE WO CONTRAST ED Urgent/IP Urgent 05/07/2023 12:10 AM DYE BOARDING MACHINE OPERATOR XR CHEST 1 VIEW ED Urgent/IP Urgent 05/06/2023 10:08 PM DYE BOARDING MACHINE OPERATOR INTUBATION Routine 05/06/2023 9:36 PM DYE BOARDING MACHINE OPERATOR Dissection of aorta, unspecified portion of aorta (HCC) XR CHEST 1 VIEW IP Routine 05/06/2023 7:41 PM DYE BOARDING MACHINE OPERATOR POTASSIUM, WHOLE BLOOD STAT 05/06/2023 7:22 PM DYE BOARDING MACHINE OPERATOR BLOOD GAS, ARTERIAL STAT 05/06/2023 7 :22 PM DYE BOARDING MACHINE OPERATOR POTASSIUM, WHOLE BLOOD STAT 05/06/2023 4:35 PM DYE BOARDING MACHINE OPERATOR BLOOD GAS, ARTERIAL STAT 05/06/2023 4 :35 PM DYE BOARDING MACHINE OPERATOR POTASSIUM, WHOLE BLOOD STAT 05/06/2023 10:30 AM DYE BOARDING MACHINE OPERATOR BLOOD GAS, ARTERIAL STAT 05/06/2023 10:30 AM DYE BOARDING MACHINE OPERATOR POTASSIUM, WHOLE BLOOD STAT 05/06/2023 6:07 AM DYE BOARDING MACHINE OPERATOR POC BLOOD GAS AND CHEMISTRIES, ARTERIAL Routine 05/06/2023 1:32 AM DYE BOARDING MACHINE OPERATOR TROPONIN I HIGH-SENSITIVITY 6-HOUR Timed 05/06/2023 1:28 AM DYE BOARDING MACHINE OPERATOR CBC WITHOUT DIFFERENTIAL Routine 05/06/2023 1:28 AM DYE BOARDING MACHINE OPERATOR TRANSFUSE PLATELETS Timed 05/05/2023 11:38 PM DYE BOARDING MACHINE OPERATOR TRANSFUSE PLATELETS Timed 05/05/2023 11:29 PM DYE BOARDING MACHINE OPERATOR TROPONIN I HIGH-SENSITIVITY 2-HOUR Timed 05/05/2023 9:15 PM DYE BOARDING MACHINE OPERATOR POC BLOOD GAS AND CHEMISTRIES, ARTERIAL Routine 05/05/2023 9:15 PM DYE BOARDING MACHINE OPERATOR TRANSFUSE RED BLOOD CELLS Timed 05/05/2023 8:20 PM DYE BOARDING MACHINE OPERATOR PREPARE PLATELETS Timed 05/05/2023 8:1 7 PM DYE BOARDING MACHINE OPERATOR APTT STAT 05/05/2023 8:14 PM DYE BOARDING MACHINE OPERATOR PROTIME-INR STAT 05/05/2023 8:14 PM DYE BOARDING MACHINE OPERATOR PREPARE RBC Timed 05/05/2023 7:56 PM DYE BOARDING MACHINE OPERATOR XR CHEST 1 VIEW IP Routine 05/05/2023 7:43 PM DYE BOARDING MACHINE OPERATOR TROPONIN I HIGH-SENSITIVITY SERIES (BASELINE, 2HR, 4HR, 6HR) Routine 05/05/2023 7:22 PM DYE BOARDING MACHINE OPERATOR POC BLOOD GAS AND CHEMISTRIES, ARTERIAL Routine 05/05/2023 7:22 PM DYE BOARDING MACHINE OPERATOR ECG 12-LEAD STAT 05/05/2023 6:56 PM DYE BOARDING MACHINE OPERATOR CTA CHEST ABDOMEN PELVIS Critical/Life-T hreatening 05/05/2023 6:28 PM DYE BOARDING MACHINE OPERATOR TRANSTHORACIC ECHO (TTE) LIMITED/FOLLOW UP WO DOPPLER/CF WO CONTRAST W BUBBLE Routine 05/05/2023 4:50 PM DYE BOARDING MACHINE OPERATOR CRITICAL CARE Routine 05/05/2023 1:24 PM DYE BOARDING MACHINE OPERATOR Hypertension, unspecified type PNEUMONIA PCR Routine 05/05/2023 11:27 AM DYE BOARDING MACHINE OPERATOR PNEUMONIA PCR WITH AEROBIC CULTURE AND GRAM STAIN Routine 05/05/2023 11:27 AM DYE BOARDING MACHINE OPERATOR EXTUBATION Routine 05/05/2023 10:41 AM DYE BOARDING MACHINE OPERATOR FL DIAGNOSTIC LUMBAR SPINAL PUNCTURE Routine 05/05/2023 10:05 AM DYE BOARDING MACHINE OPERATOR Dissection of aorta, unspecified portion of aorta (HCC) LACTATE Routine 05/05/2023 8:21 AM DYE BOARDING MACHINE OPERATOR BLOOD GAS, ARTERIAL STAT 05/05/2023 8 :21 AM DYE BOARDING MACHINE OPERATOR POTASSIUM, WHOLE BLOOD STAT 05/05/2023 4:51 AM DYE BOARDING MACHINE OPERATOR BLOOD GAS, ARTERIAL STAT 05/05/2023 4 :51 AM DYE BOARDING MACHINE OPERATOR EGFR Routine 05/05/2023 12:12 AM DYE BOARDING MACHINE OPERATOR CBC WITHOUT DIFFERENTIAL Routine 05/05/2023 12:12 AM DYE BOARDING MACHINE OPERATOR PHOSPHORUS Routine 05/05/2023 12:12 AM DYE BOARDING MACHINE OPERATOR MAGNESIUM Routine 05/05/2023 12:12 AM DYE BOARDING MACHINE OPERATOR BASIC METABOLIC PANEL Routine 05/05/2023 12:12 AM DYE BOARDING MACHINE OPERATOR POTASSIUM, WHOLE BLOOD STAT 05/04/2023 10:30 PM DYE BOARDING MACHINE OPERATOR TRIGLYCERIDES Timed 05/04/2023 10:30 PM DYE BOARDING MACHINE OPERATOR BLOOD GAS, ARTERIAL STAT 05/04/2023 10:30 PM DYE BOARDING MACHINE OPERATOR XR CHEST 1 VIEW IP Routine 05/04/2023 8:58 PM DYE BOARDING MACHINE OPERATOR POTASSIUM, WHOLE BLOOD STAT 05/04/2023 6:31 PM DYE BOARDING MACHINE OPERATOR CRITICAL CARE Routine 05/04/2023 3:00 PM DYE BOARDING MACHINE OPERATOR Hypertension, unspecified type POCT GLUCOSE DEVICE Routine 05/04/2023 1 :42 PM DYE BOARDING MACHINE OPERATOR RT COMMUNICATION Routine 05/04/2023 1:10 PM DYE BOARDING MACHINE OPERATOR POTASSIUM, WHOLE BLOOD STAT 05/04/2023 11:27 AM DYE BOARDING MACHINE OPERATOR TYPE AND SCREEN Timed 05/04/2023 11:23 AM DYE BOARDING MACHINE OPERATOR BLOOD GAS, ARTERIAL STAT 05/04/2023 11:23 AM DYE BOARDING MACHINE OPERATOR POCT GLUCOSE DEVICE Routine 05/04/2023 7 :48 AM DYE BOARDING MACHINE OPERATOR POC BLOOD GAS AND CHEMISTRIES, ARTERIAL Routine 05/04/2023 3:03 AM DYE BOARDING MACHINE OPERATOR URINALYSIS AND REFLEX TO MICROSCOPIC Routine 05/04/2023 2:14 AM DYE BOARDING MACHINE OPERATOR URINALYSIS, MICROSCOPIC ONLY Routine 05/04/2023 2:14 AM DYE BOARDING MACHINE OPERATOR EGFR Routine 05/04/2023 1:20 AM DYE BOARDING MACHINE OPERATOR BLOOD CULTURE Routine 05/04/2023 1:20 AM DYE BOARDING MACHINE OPERATOR BLOOD CULTURE Routine 05/04/2023 1:20 AM DYE BOARDING MACHINE OPERATOR CBC WITHOUT DIFFERENTIAL Routine 05/04/2023 1:20 AM DYE BOARDING MACHINE OPERATOR TRIGLYCERIDES Routine 05/04/2023 1:20 AM DYE BOARDING MACHINE OPERATOR PHOSPHORUS Routine 05/04/2023 1:20 AM DYE BOARDING MACHINE OPERATOR MAGNESIUM Routine 05/04/2023 1:20 AM DYE BOARDING MACHINE OPERATOR BLOOD GAS, ARTERIAL STAT 05/04/2023 1 :20 AM DYE BOARDING MACHINE OPERATOR BASIC METABOLIC PANEL Routine 05/04/2023 1:20 AM DYE BOARDING MACHINE OPERATOR XR CHEST 1 VIEW IP Routine 05/03/2023 10:05 PM DYE BOARDING MACHINE OPERATOR FL INSJ NON-TUNNELED CENTRAL VENOUS CATH AGE 7 YR/> Routine 05/03/2023 9:57 PM DYE BOARDING MACHINE OPERATOR Dissection of aorta, unspecified portion of aorta (HCC) BLOOD GAS, ARTERIAL STAT 05/03/2023 8 :32 PM DYE BOARDING MACHINE OPERATOR POTASSIUM, WHOLE BLOOD STAT 05/03/2023 5:50 PM DYE BOARDING MACHINE OPERATOR BLOOD GAS, ARTERIAL STAT 05/03/2023 5 :50 PM DYE BOARDING MACHINE OPERATOR XR CHEST 1 VIEW IP Routine 05/03/2023 2:54 PM DYE BOARDING MACHINE OPERATOR CRITICAL CARE Routine 05/03/2023 2:29 PM DYE BOARDING MACHINE OPERATOR Hypertension, unspecified type POC BLOOD GAS AND CHEMISTRIES, ARTERIAL Routine 05/03/2023 2:09 PM DYE BOARDING MACHINE OPERATOR TRIGLYCERIDES Routine 05/03/2023 1:12 PM DYE BOARDING MACHINE OPERATOR POC BLOOD GAS AND CHEMISTRIES, ARTERIAL Routine 05/03/2023 11:07 AM DYE BOARDING MACHINE OPERATOR POC BLOOD GAS AND CHEMISTRIES, ARTERIAL Routine 05/03/2023 3:28 AM DYE BOARDING MACHINE OPERATOR LACTATE Routine 05/03/2023 2:08 AM DYE BOARDING MACHINE OPERATOR BLOOD GAS, ARTERIAL Routine 05/03/2023 2 :08 AM DYE BOARDING MACHINE OPERATOR LACTATE STAT 05/03/2023 12:10 AM DYE BOARDING MACHINE OPERATOR EGFR Routine 05/03/2023 12:10 AM DYE BOARDING MACHINE OPERATOR THYROID FUNCTION CASCADE Routine 05/03/2023 12:10 AM DYE BOARDING MACHINE OPERATOR FIBRINOGEN Routine 05/03/2023 12:10 AM DYE BOARDING MACHINE OPERATOR CBC WITHOUT DIFFERENTIAL Routine 05/03/2023 12:10 AM DYE BOARDING MACHINE OPERATOR PHOSPHORUS Routine 05/03/2023 12:10 AM DYE BOARDING MACHINE OPERATOR MAGNESIUM Routine 05/03/2023 12:10 AM DYE BOARDING MACHINE OPERATOR BLOOD GAS, ARTERIAL STAT 05/03/2023 12:10 AM DYE BOARDING MACHINE OPERATOR BASIC METABOLIC PANEL Routine 05/03/2023 12:10 AM DYE BOARDING MACHINE OPERATOR POC BLOOD GAS AND CHEMISTRIES, ARTERIAL Routine 05/02/2023 11:16 PM DYE BOARDING MACHINE OPERATOR XR CHEST 1 VIEW ED Urgent/IP Urgent 05/02/2023 10:54 PM DYE BOARDING MACHINE OPERATOR POC BLOOD GAS AND CHEMISTRIES, ARTERIAL Routine 05/02/2023 10:13 PM DYE BOARDING MACHINE OPERATOR EGFR STAT 05/02/2023 9:55 PM DYE BOARDING MACHINE OPERATOR CALCIUM, IONIZED STAT 05/02/2023 9:55 PM DYE BOARDING MACHINE OPERATOR PHOSPHORUS STAT 05/02/2023 9:55 PM DYE BOARDING MACHINE OPERATOR MAGNESIUM STAT 05/02/2023 9:55 PM DYE BOARDING MACHINE OPERATOR BASIC METABOLIC PANEL STAT 05/02/2023 9:55 PM DYE BOARDING MACHINE OPERATOR CBC WITHOUT DIFFERENTIAL STAT 05/02/2023 9:33 PM DYE BOARDING MACHINE OPERATOR POC BLOOD GAS AND CHEMISTRIES, ARTERIAL Routine 05/02/2023 9:29 PM DYE BOARDING MACHINE OPERATOR CV HYBRID ROOM (DEFAULT ORDERABLE) Routine 05/02/2023 9:20 PM DYE BOARDING MACHINE OPERATOR Dissection of thoracoabdominal aorta (CMS/HCC) (HCC) POCT ACTIVATED CLOTTING TIME, LOW RANGE Routine 05/02/2023 7:26 PM DYE BOARDING MACHINE OPERATOR POCT ACTIVATED CLOTTING TIME, LOW RANGE Routine 05/02/2023 7:01 PM DYE BOARDING MACHINE OPERATOR POCT ACTIVATED CLOTTING TIME, LOW RANGE Routine 05/02/2023 6:27 PM DYE BOARDING MACHINE OPERATOR POCT ACTIVATED CLOTTING TIME, LOW RANGE Routine 05/02/2023 6:02 PM DYE BOARDING MACHINE OPERATOR CRITICAL CARE Routine 05/02/2023 5:26 PM DYE BOARDING MACHINE OPERATOR Dissection of aorta, unspecified portion of aorta (HCC) CAUTERIZATION NASAL SEPTUM 05/02/2023 4:36 PM DYE BOARDING MACHINE OPERATOR Dissection of thoracoabdominal aorta (CMS/HCC) (HCC) PLACEMENT STENT - SUBCLAVIAN ARTERY - HYBRID ROOM 05/02/2023 4:36 PM DYE BOARDING MACHINE OPERATOR Dissection of thoracoabdominal aorta (CMS/HCC) (HCC) LACTATE Timed 05/02/2023 4:00 PM DYE BOARDING MACHINE OPERATOR EGFR Timed 05/02/2023 4:00 PM DYE BOARDING MACHINE OPERATOR CBC WITHOUT DIFFERENTIAL Timed 05/02/2023 4:00 PM DYE BOARDING MACHINE OPERATOR COMPREHENSIVE METABOLIC PANEL Timed 05/02/2023 4:00 PM DYE BOARDING MACHINE OPERATOR TRANSTHORACIC ECHO (TTE) COMPLETE W DOPPLER/CF W CONTRAST STAT 05/02/2023 12:40 PM DYE BOARDING MACHINE OPERATOR PREPARE PLATELETS Timed 05/02/2023 10:34 AM DYE BOARDING MACHINE OPERATOR PREPARE RBC Timed 05/02/2023 10:33 AM DYE BOARDING MACHINE OPERATOR LACTATE Timed 05/02/2023 10:12 AM DYE BOARDING MACHINE OPERATOR EGFR Timed 05/02/2023 10:12 AM DYE BOARDING MACHINE OPERATOR CBC WITHOUT DIFFERENTIAL Timed 05/02/2023 10:12 AM DYE BOARDING MACHINE OPERATOR COMPREHENSIVE METABOLIC PANEL Timed 05/02/2023 10:12 AM DYE BOARDING MACHINE OPERATOR CTA CHEST ABDOMINAL AORTA AND BILATERAL ILIOFEMORAL Critical/Life-T hreatening 05/02/2023 9:47 AM DYE BOARDING MACHINE OPERATOR POCT GLUCOSE DEVICE Routine 05/02/2023 4 :16 AM DYE BOARDING MACHINE OPERATOR LACTATE Timed 05/02/2023 4:10 AM DYE BOARDING MACHINE OPERATOR EGFR Timed 05/02/2023 4:10 AM DYE BOARDING MACHINE OPERATOR CALCIUM, IONIZED Routine 05/02/2023 4:10 AM DYE BOARDING MACHINE OPERATOR PROTIME-INR Routine 05/02/2023 4:10 AM DYE BOARDING MACHINE OPERATOR CBC WITHOUT DIFFERENTIAL Timed 05/02/2023 4:10 AM DYE BOARDING MACHINE OPERATOR COMPREHENSIVE METABOLIC PANEL Timed 05/02/2023 4:10 AM DYE BOARDING MACHINE OPERATOR LACTATE Timed 05/01/2023 11:52 PM DYE BOARDING MACHINE OPERATOR EGFR Timed 05/01/2023 11:52 PM DYE BOARDING MACHINE OPERATOR CBC WITHOUT DIFFERENTIAL Timed 05/01/2023 11:52 PM DYE BOARDING MACHINE OPERATOR COMPREHENSIVE METABOLIC PANEL Timed 05/01/2023 11:52 PM DYE BOARDING MACHINE OPERATOR POC BLOOD GAS AND CHEMISTRIES, ARTERIAL Routine 05/01/2023 11:03 PM DYE BOARDING MACHINE OPERATOR POTASSIUM, WHOLE BLOOD Routine 05/01/2023 7:28 PM DYE BOARDING MACHINE OPERATOR HEPATIC FUNCTION PANEL Routine 05/01/2023 7:28 PM DYE BOARDING MACHINE OPERATOR POCT GLUCOSE DEVICE Routine 05/01/2023 7 :27 PM DYE BOARDING MACHINE OPERATOR XR CHEST 1 VIEW IP Routine 05/01/2023 6:41 PM DYE BOARDING MACHINE OPERATOR EGFR Timed 05/01/2023 5:50 PM DYE BOARDING MACHINE OPERATOR COMPREHENSIVE METABOLIC PANEL Timed 05/01/2023 5:50 PM DYE BOARDING MACHINE OPERATOR POCT GLUCOSE DEVICE Routine 05/01/2023 5 :10 PM DYE BOARDING MACHINE OPERATOR LACTATE, WHOLE BLOOD Timed 05/01/2023 5:10 PM DYE BOARDING MACHINE OPERATOR CBC WITHOUT DIFFERENTIAL Timed 05/01/2023 5:10 PM DYE BOARDING MACHINE OPERATOR SEPSIS LACTATE WITH REFLEX Timed 05/01/2023 1:18 PM DYE BOARDING MACHINE OPERATOR FL CRITICAL CARE ILL/INJURED PATIENT INIT 30-74 MIN Routine 05/01/2023 12:32 PM DYE BOARDING MACHINE OPERATOR TROPONIN I HIGH-SENSITIVITY Routine 05/01/2023 11:40 AM DYE BOARDING MACHINE OPERATOR POCT GLUCOSE DEVICE Routine 05/01/2023 11:40 AM DYE BOARDING MACHINE OPERATOR BLOOD GAS, ARTERIAL STAT 05/01/2023 11:40 AM DYE BOARDING MACHINE OPERATOR CREATINE KINASE (CK), TOTAL STAT 05/01/2023 11:40 AM DYE BOARDING MACHINE OPERATOR SEPSIS LACTATE WITH REFLEX Timed 05/01/2023 10:15 AM DYE BOARDING MACHINE OPERATOR LACTATE Timed 05/01/2023 10:15 AM DYE BOARDING MACHINE OPERATOR EGFR Timed 05/01/2023 10:15 AM DYE BOARDING MACHINE OPERATOR CBC WITHOUT DIFFERENTIAL Timed 05/01/2023 10:15 AM DYE BOARDING MACHINE OPERATOR COMPREHENSIVE METABOLIC PANEL Timed 05/01/2023 10:15 AM DYE BOARDING MACHINE OPERATOR SEPSIS LACTATE WITH REFLEX STAT 05/01/2023 8:13 AM DYE BOARDING MACHINE OPERATOR B CHECK SAMPLE STAT 05/01/2023 8:13 AM DYE BOARDING MACHINE OPERATOR TYPE AND SCREEN STAT 05/01/2023 7:52 AM DYE BOARDING MACHINE OPERATOR FL CRITICAL CARE ILL/INJURED PATIENT INIT 30-74 MIN Routine 05/01/2023 7:33 AM DYE BOARDING MACHINE OPERATOR CT BODY OUTSIDE CONSULT Routine 05/01/2023 6:16 AM DYE BOARDING MACHINE OPERATOR XR TRANSFER OF OUTSIDE FILMS Routine 05/01/2023 6:05 AM DYE BOARDING MACHINE OPERATOR CT BODY OUTSIDE CONSULT Routine 05/01/2023 6:01 AM DYE BOARDING MACHINE OPERATOR FL ARTL CATHJ/CANNULJ MNTR/TRANSFUSION SPX PRQ Routine 05/01/2023 5:56 AM DYE BOARDING MACHINE OPERATOR FENTANYL CONFIRMATION, MS URINE STAT 05/01/2023 5:19 AM DYE BOARDING MACHINE OPERATOR DRUGS OF ABUSE SCREEN, URINE WITH REFLEX CONFIRMATION STAT 05/01/2023 5:19 AM DYE BOARDING MACHINE OPERATOR EGFR STAT 05/01/2023 5:19 AM DYE BOARDING MACHINE OPERATOR DIFFERENTIAL AUTO STAT 05/01/2023 5:1 9 AM DYE BOARDING MACHINE OPERATOR URINALYSIS AND REFLEX TO MICROSCOPIC AND CULTURE STAT 05/01/2023 5:19 AM DYE BOARDING MACHINE OPERATOR CBC WITH AUTO DIFFERENTIAL STAT 05/01/2023 5:19 AM DYE BOARDING MACHINE OPERATOR URINALYSIS, MICROSCOPIC ONLY STAT 05/01/2023 5:19 AM DYE BOARDING MACHINE OPERATOR APTT Routine 05/01/2023 5:19 AM DYE BOARDING MACHINE OPERATOR PROTIME-INR STAT 05/01/2023 5:19 AM DYE BOARDING MACHINE OPERATOR COMPREHENSIVE METABOLIC PANEL STAT 05/01/2023 5:19 AM DYE BOARDING MACHINE OPERATOR ECG 12-LEAD Routine 05/01/2023 5:15 AM DYE BOARDING MACHINE OPERATOR XR CHEST 1 VIEW ED 05/01/2023 5:14 AM DYE BOARDING MACHINE OPERATOR documented in this encounter Results * CTA Chest Abdomen Pelvis (05/16/2023 10:28 AM DYE BOARDING MACHINE OPERATOR) Anatomical Region Laterality Modality Body N/A Computed Tomogra phy 05/16/2023 1:06 PM DYE BOARDING MACHINE OPERATOR Impressions 05/16/2023 4:50 PM DYE BOARDING MACHINE OPERATOR 1. Redemonstrated findings of type B aortic [...] Timmy Castillo M.D. Narrative 05/16/2023 4:50 PM DYE BOARDING MACHINE OPERATOR EXAMINATION: ??CT ANGIOGRAPHY OF THE CHEST, [...] l Result * eGFR (05/16/2023 4:03 AM DYE BOARDING MACHINE OPERATOR) eGFR >90 >=60 mL/min/1. 73 m2 [facility] Comment: Interpretive Data Reference Interval [...] last reviewed 2021. Blood 05/16/2023 4:03 AM DYE BOARDING MACHINE OPERATOR 05/16/2023 4:29 AM DYE BOARDING MACHINE OPERATOR Faustino Herrera MD LAB BLOOD ORDERABLES Final Result Performing Organization Address [facility] Co de Phone Number [facility] [place] [address] * Phosphorus (05/16/2023 4:03 AM DYE BOARDING MACHINE OPERATOR) [facility] Phosphorus, pl 4.2 2.3 - 4.5 mg/dL [facility] Blood 05/16/2023 4:03 AM DYE BOARDING MACHINE OPERATOR 05/16/2023 4:29 AM DYE BOARDING MACHINE OPERATOR Faustino Herrera MD LAB BLOOD ORDERABLES Final Result Performing Organization Address [facility] de Phone Number [facility] [place] [address] * Magnesium (05/16/2023 4:03 AM DYE BOARDING MACHINE OPERATOR) Pathologist [facility] Magnesium 2.4 1.4 - 2.5 mg/dL [facility] Blood 05/16/2023 4:03 AM DYE BOARDING MACHINE OPERATOR 05/16/2023 4:29 AM DYE BOARDING MACHINE OPERATOR Faustino Herrera MD LAB BLOOD ORDERABLES Final Result [facility] [place] [address] * Basic metabolic panel (05/16/2023 4:03 AM DYE BOARDING MACHINE OPERATOR) [facility] Sodium 140 135 - 145 mmol/L [facility] Potassium, pl 3.9 3.3 - 4.9 mmol/L [facility] Chloride 104 97 - 110 mmol/L [facility] CO2 23 22 - 32 mmol/L [facility] Anion gap 13 2 - 15 mmol/L [facility] BUN 12 6 - 25 mg/dL [facility] Creatinine 0.90 0.80 - 1.30 mg/dL [facility] Glucose 116 70 - 199 mg/dL [facility] Comment: Interpretive Data Fasting glucose >/= [...] 2022. Calcium 9.0 8.5 - 10.3 mg/dL [facility] Blood 05/16/2023 4:0 3 AM DYE BOARDING MACHINE OPERATOR 05/16/2023 4:29 AM DYE BOARDING MACHINE OPERATOR Faustino Herrera MD LAB BLOOD ORDERABLES Final Result Performing Organization Address [facility]/ZIP Co de Phone Number [facility] [place] [address] * (ABNORMAL) CBC without differential (05/16/2023 4:03 AM DYE BOARDING MACHINE OPERATOR) WBC 13.3(H) 3.8 - 9.9 K/cumm [facility] Hgb 9.6(L) 13.0 - 17.5 g/dL [facility] Hct 29.9(L) 38.9 - 50.3 % [facility] Plt 714(H) 150 - 400 K/cumm [facility] MPV 9.7 9.1 - 12.3 fL [facility] RBC 3.22(L) 4.30 - 5.80 M/cumm [facility] MCV 92.9 81.3 - 96.4 fL [facility] MCH 29.8 27.1 - 33.3 pg [facility] MCHC 32.1(L) 32.3 - 35.7 g/dL [facility] RDW CV 13.1 11.1 - 14.9 % [facility] RDW SD 44.6 35.7 - 48.1 fL [facility] NRBC abs 0.00 0.00 - 0.01 K/cumm [facility] Blood 05/16/2023 4:03 AM DYE BOARDING MACHINE OPERATOR 05/16/2023 4:29 AM DYE BOARDING MACHINE OPERATOR Faustino Herrera MD LAB BLOOD ORDERABLES Final Result [facility] [place] [place] [address] * Type and screen (05/15/2023 5:26 AM DYE BOARDING MACHINE OPERATOR) Ellen, indirect Negative ABO Rh A Positive [facility] Blood 05/15/2023 5:26 AM DYE BOARDING MACHINE OPERATOR 05/15/2023 5:26 AM DYE BOARDING MACHINE OPERATOR us Faustino Herrera MD LAB BLOOD BANK TEST ORDERA BLES Final Result Performing Organization Address [facility] Co de Phone Number [facility] Department [place] [address] * (ABNORMAL) CBC without differential (05/15/2023 5:12 AM DYE BOARDING MACHINE OPERATOR) Pathologist [facility] WBC 14.3(H) 3.8 - 9.9 K/cumm [facility] Hgb 9.6(L) 13.0 - 17.5 g/dL [facility] Comment:Consistent with prev ious result. Hct 29.4(L) 38.9 - 50.3 % [facility] Plt 679(H) 150 - 400 K/cumm [facility] MPV 9.3 9.1 - 12.3 fL [facility] RBC 3.21(L) 4.30 - 5.80 M/cumm [facility] MCV 91.6 81.3 - 96.4 fL [facility] MCH 29.9 27.1 - 33.3 pg [facility] MCHC 32.7 32.3 - 35.7 g/dL [facility] RDW CV 13.2 11.1 - 14.9 % [facility] RDW SD 44.7 35.7 - 48.1 fL [facility] NRBC abs 0.00 0.00 - 0.01 K/cumm [facility] Blood 05/15/2023 5:12 AM DYE BOARDING MACHINE OPERATOR 05/15/2023 5:21 AM DYE BOARDING MACHINE OPERATOR us Sonia Clayton MD LAB BLOOD ORDERABLES Final Resul t Performing Organization Address City/[facility]/ZIP Co de Phone Number [facility] [place] [place] [address] * eGFR (05/15/2023 4:36 AM DYE BOARDING MACHINE OPERATOR) eGFR >90 >=60 mL/min/1. 73 m2 [facility] Comment: Interpretive Data Reference Interval Normal [...] last reviewed 2021. Blood 05/15/2023 4:36 AM DYE BOARDING MACHINE OPERATOR 05/15/2023 4:48 AM DYE BOARDING MACHINE OPERATOR us Faustino Herrera MD LAB BLOOD ORDERABLES Final Result Performing Organization Address [facility] Co de Phone Number [facility] [place] [address] * Phosphorus (05/15/2023 4:36 AM DYE BOARDING MACHINE OPERATOR) Phosphorus, pl 3.4 2.3 - 4.5 mg/dL [facility] Blood 05/15/2023 4:36 AM DYE BOARDING MACHINE OPERATOR 05/15/2023 4:48 AM DYE BOARDING MACHINE OPERATOR Faustino Herrera MD LAB BLOOD ORDERABLES Final Result Performing Organization Address [facility] de Phone Number [facility] [place] [address] * Magnesium (05/15/2023 4:36 AM DYE BOARDING MACHINE OPERATOR) Magnesium 2.5 1.4 - 2.5 mg/dL [facility] Blood 05/15/2023 4:36 AM DYE BOARDING MACHINE OPERATOR 05/15/2023 4:48 AM DYE BOARDING MACHINE OPERATOR Faustino Herrera MD LAB BLOOD ORDERABLES Final Result [facility] [place] [address] * Basic metabolic panel (05/15/2023 4:36 AM DYE BOARDING MACHINE OPERATOR) Pathologist [facility] Sodium 138 135 - 145 mmol/L [facility] Potassium, pl 4.0 3.3 - 4.9 mmol/L [facility] Chloride 103 97 - 110 mmol/L [facility] CO2 22 22 - 32 mmol/L [facility] Anion gap 13 2 - 15 mmol/L [facility] BUN 14 6 - 25 mg/dL [facility] Creatinine 0.86 0.80 - 1.30 mg/dL [facility] Glucose 110 70 - 199 mg/dL [facility] Comment: Interpretive Data Fasting glucose >/= [...] 2022. Calcium 9.1 8.5 - 10.3 mg/dL [facility] Blood 05/15/2023 4:36 AM DYE BOARDING MACHINE OPERATOR 05/15/2023 4:48 AM DYE BOARDING MACHINE OPERATOR Faustino Herrera MD LAB BLOOD ORDERABLES Final Result [facility] [place] [address] * (ABNORMAL) CBC without differential (05/15/2023 4:36 AM DYE BOARDING MACHINE OPERATOR) Pathologist [facility] WBC 18.8(H) 3.8 - 9.9 K/cumm [facility] Hgb 6.0(C) 13.0 - 17.5 g/dL [facility] Comment:Critical result call ed to and read back by BASIM DIETZ RN on 05 15 2023 at 0500 to Yolette Braswell. Hct 18.5(L) 38.9 - 50.3 % [facility] Plt 834(H) 150 - 400 K/cumm [facility] MPV 9.6 9.1 - 12.3 fL [facility] RBC 1.98(L) 4.30 - 5.80 M/cumm [facility] MCV 93.4 81.3 - 96.4 fL [facility] MCH 30.3 27.1 - 33.3 pg [facility] MCHC 32.4 32.3 - 35.7 g/dL [facility] RDW CV 13.3 11.1 - 14.9 % [facility] RDW SD 45.4 35.7 - 48.1 fL [facility] NRBC abs 0.00 0.00 - 0.01 K/cumm [facility] Blood 05/15/2023 4:36 AM DYE BOARDING MACHINE OPERATOR 05/15/2023 4:48 AM DYE BOARDING MACHINE OPERATOR Faustino Herrera MD LAB BLOOD ORDERABLES Final Result Performing Organization Address City/[facility]/ZIP Co de Phone Number [facility] [place] [address] * eGFR (05/14/2023 6:01 AM DYE BOARDING MACHINE OPERATOR) [facility] eGFR >90 >=60 mL/min/1. 73 m2 [facility] Comment: Interpretive Data Reference Interval Normal [...] last reviewed 2021. Blood 05/14/2023 6:01 AM DYE BOARDING MACHINE OPERATOR 05/14/2023 6:19 AM DYE BOARDING MACHINE OPERATOR us Alonzo Duncan MD LAB BLOOD ORDERABLES Fin al Result Performing Organization Address [facility] Co de Phone Number [facility] [place] [address] * Phosphorus (05/14/2023 6:01 AM DYE BOARDING MACHINE OPERATOR) Phosphorus, pl 4.0 2.3 - 4.5 mg/dL [facility] Blood 05/14/2023 6:01 AM DYE BOARDING MACHINE OPERATOR 05/14/2023 6:19 AM DYE BOARDING MACHINE OPERATOR us Faustino Herrera MD LAB BLOOD ORDERABLES Final Result Performing Organization Address [facility] de Phone Number [facility] [place] [address] * Magnesium (05/14/2023 6:01 AM DYE BOARDING MACHINE OPERATOR) Pathologist [facility] Magnesium 2.3 1.4 - 2.5 mg/dL [facility] Blood 05/14/2023 6:01 AM DYE BOARDING MACHINE OPERATOR 05/14/2023 6:19 AM DYE BOARDING MACHINE OPERATOR Faustino Herrera MD LAB BLOOD ORDERABLES Final Result [facility] [place] [address] * Basic metabolic panel (05/14/2023 6:01 AM DYE BOARDING MACHINE OPERATOR) [facility] Sodium 138 135 - 145 mmol/L [facility] Potassium, pl 3.8 3.3 - 4.9 mmol/L [facility] Chloride 102 97 - 110 mmol/L [facility] CO2 25 22 - 32 mmol/L [facility] Anion gap 11 2 - 15 mmol/L [facility] BUN 15 6 - 25 mg/dL [facility] Creatinine 0.86 0.80 - 1.30 mg/dL [facility] Glucose 123 70 - 199 mg/dL [facility] Comment: Interpretive Data Fasting glucose >/= [...] 2022. Calcium 9.4 8.5 - 10.3 mg/dL [facility] Blood 05/14/2023 6:01 AM DYE BOARDING MACHINE OPERATOR 05/14/2023 6:19 AM DYE BOARDING MACHINE OPERATOR Faustino Herrera MD LAB BLOOD ORDERABLES Final Result [facility] [place] [address] * (ABNORMAL) CBC without differential (05/14/2023 6:01 AM DYE BOARDING MACHINE OPERATOR) WBC 14.5(H) 3.8 - 9.9 K/cumm [facility] Hgb 10.5(L) 13.0 - 17.5 g/dL [facility] Comment: Interpretive Data A reference range for this assay has not been established for patients with an unknown legal sex. Please refer to the laboratory test catalog for established sex-specific reference intervals. Current interpretive data was last revised on 2023. Hct 32.1(L) 38.9 - 50.3 % [facility] Comment: Interpretive Data A reference range for this assay has not been established for patients with an unknown legal sex. Please refer to the laboratory test catalog for established sex-specific reference intervals. Current interpretive data was last revised on 2023. Plt 679(H) 150 - 400 K/cumm [facility] MPV 9.9 9.1 - 12.3 fL [facility] RBC 3.49(L) 4.30 - 5.80 M/cumm [facility] Comment: Interpretive Data A reference range for this assay has not been established for patients with an unknown legal sex. Please refer to the laboratory test catalog for established sex-specific reference intervals. Current interpretive data was last revised on 2023. MCV 92.0 81.3 - 96.4 fL [facility] MCH 30.1 27.1 - 33.3 pg [facility] MCHC 32.7 32.3 - 35.7 g/dL [facility] RDW CV 13.3 11.1 - 14.9 % [facility] RDW SD 45.0 35.7 - 48.1 fL [facility] NRBC abs 0.00 0.00 - 0.01 K/cumm [facility] Blood 05/14/2023 6:01 AM DYE BOARDING MACHINE OPERATOR 05/14/2023 6:20 AM DYE BOARDING MACHINE OPERATOR us Faustino Herrera MD LAB BLOOD ORDERABLES Final Result [facility] [place] [address] * XR Chest 1 View (05/13/2023 7:10 PM DYE BOARDING MACHINE OPERATOR) Anatomical Region Laterality Modality Body, Chest N/A Computed Radiogr aphy 05/14/2023 7:04 AM DYE BOARDING MACHINE OPERATOR Impressions 05/14/2023 7:49 AM DYE BOARDING MACHINE OPERATOR The current study is compared with the [...] Electronically signed by: Hipolito Mobley M.D. Narrative 05/14/2023 7:49 AM DYE BOARDING MACHINE OPERATOR EXAMINATION: 1 view chest radiograph Procedure Note [...] sult * Critical Care (05/13/2023 12:56 PM DYE BOARDING MACHINE OPERATOR) Narrative Dalton Locke MD - 05/13/2023 12:56 PM DYE BOARDING MACHINE OPERATOR Dalton Locke MD ? 05/13/2023 12:57 PM [...] plan with the patient's team and other medical/business solutions consultant staff. This time was in addition [...] Final Result * eGFR (05/13/2023 12:10 AM DYE BOARDING MACHINE OPERATOR) [facility] eGFR >90 >=60 mL/min/1. 73 m2 [facility] Comment: Interpretive Data Reference Interval Normal [...] reviewed 2021. Blood 05/13/2023 12:1 0 AM DYE BOARDING MACHINE OPERATOR 05/13/2023 12:31 AM DYE BOARDING MACHINE OPERATOR Alonzo Duncan MD LAB BLOOD ORDERABLES Fin al Result Performing Organization Address City/[facility] Co de Phone Number [facility] [place] [address] * Type and screen (05/13/2023 12:10 AM DYE BOARDING MACHINE OPERATOR) Ellen, indirect Negative ABO Rh A Positive [facility] Blood 05/13/2023 12:1 0 AM DYE BOARDING MACHINE OPERATOR 05/13/2023 12:42 AM DYE BOARDING MACHINE OPERATOR Narrative [facility] - 05/13/2023 1:43 AM DYE BOARDING MACHINE OPERATOR Has the patient had Daratumumab or Isatuximab in the past 6 months?->Unknown Faustino Herrera MD LAB BLOOD BANK TEST ORDERA BLES Final Result Performing Organization Address [facility] Co de Phone Number [facility] [place] [address] * aPTT (05/13/2023 12:10 AM DYE BOARDING MACHINE OPERATOR) aPTT 33 28 - 38 sec [facility] Comment: Interpretive Data Heparin therapeutic range: 66.0 - 100.0 seconds. Range based on correlation with therapeutic heparin activity range of 0.3 - 0.7 Units/mL. Current interpretive data was last revised on 2023. Blood 05/13/2023 12:1 0 AM DYE BOARDING MACHINE OPERATOR 05/13/2023 12:39 AM DYE BOARDING MACHINE OPERATOR Faustino Herrera MD LAB BLOOD ORDERABLES Final Result Performing Organization Address [facility] de Phone Number [facility] [place] [address] * (ABNORMAL) Protime-INR (05/13/2023 12:10 AM DYE BOARDING MACHINE OPERATOR) PT 15.5(H) 10.3 - 13.7 sec [facility] INR 1.36(H) 0.90 - 1.20 [facility] Comment: Interpretive data Oral anticoagulant therapeutic ranges: Venous thromboembolism prophylaxis or treatment: 2.0-3.0 CARDIOLOGY Standard range: 2.0-3.0 High-intensity range: 2.5-3.5 Refer to indication-specific guidelines for appropriate target ranges for prosthetic heart valve replacement. Current interpretive data was last revised on 2019. Blood 05/13/2023 12:1 0 AM DYE BOARDING MACHINE OPERATOR 05/13/2023 12:39 AM DYE BOARDING MACHINE OPERATOR Faustino Herrera MD LAB BLOOD ORDERABLES Final Result Performing Organization Address [facility] de Phone Number [facility] [place] [address] * Phosphorus (05/13/2023 12:10 AM DYE BOARDING MACHINE OPERATOR) Pathologist [facility] Phosphorus, pl 3.3 2.3 - 4.5 mg/dL [facility] Blood 05/13/2023 12:1 0 AM DYE BOARDING MACHINE OPERATOR 05/13/2023 12:31 AM DYE BOARDING MACHINE OPERATOR Faustino Herrera MD LAB BLOOD ORDERABLES Final Result Performing Organization Address [facility] de Phone Number [facility] [place] [address] * Magnesium (05/13/2023 12:10 AM DYE BOARDING MACHINE OPERATOR) Magnesium 2.2 1.4 - 2.5 mg/dL [facility] Blood 05/13/2023 12:1 0 AM DYE BOARDING MACHINE OPERATOR 05/13/2023 12:31 AM DYE BOARDING MACHINE OPERATOR Faustino Herrera MD LAB BLOOD ORDERABLES Final Result Performing Organization Address City/[facility]/ZIP Co de Phone Number [facility] [place] [address] * Basic metabolic panel (05/13/2023 12:10 AM DYE BOARDING MACHINE OPERATOR) Sodium 137 135 - 145 mmol/L [facility] Potassium, pl 3.8 3.3 - 4.9 mmol/L [facility] Chloride 100 97 - 110 mmol/L [facility] CO2 25 22 - 32 mmol/L [facility] Anion gap 12 2 - 15 mmol/L [facility] BUN 16 6 - 25 mg/dL [facility] Creatinine 0.84 0.80 - 1.30 mg/dL [facility] Glucose 111 70 - 199 mg/dL [facility] Comment: Interpretive Data Fasting glucose >/= [...] 2022. Calcium 9.1 8.5 - 10.3 mg/dL [facility] Blood 05/13/2023 12:1 0 AM DYE BOARDING MACHINE OPERATOR 05/13/2023 12:31 AM DYE BOARDING MACHINE OPERATOR Faustino Herrera MD LAB BLOOD ORDERABLES Final Result Performing Organization Address City/[facility] Co de Phone Number [facility] [place] [address] * (ABNORMAL) CBC without differential (05/13/2023 12:10 AM DYE BOARDING MACHINE OPERATOR) [facility] WBC 13.2(H) 3.8 - 9.9 K/cumm [facility] Hgb 10.2(L) 13.0 - 17.5 g/dL [facility] Comment: Interpretive Data A reference range for this assay has not been established for patients with an unknown legal sex. Please refer to the laboratory test catalog for established sex-specific reference intervals. Current interpretive data was last revised on 2023. Hct 32.0(L) 38.9 - 50.3 % [facility] Comment: Interpretive Data A reference range for this assay has not been established for patients with an unknown legal sex. Please refer to the laboratory test catalog for established sex-specific reference intervals. Current interpretive data was last revised on 2023. Plt 550(H) 150 - 400 K/cumm [facility] MPV 9.7 9.1 - 12.3 fL [facility] RBC 3.50(L) 4.30 - 5.80 M/cumm [facility] Comment: Interpretive Data A reference range for this assay has not been established for patients with an unknown legal sex. Please refer to the laboratory test catalog for established sex-specific reference intervals. Current interpretive data was last revised on 2023. MCV 91.4 81.3 - 96.4 fL [facility] MCH 29.1 27.1 - 33.3 pg [facility] MCHC 31.9(L) 32.3 - 35.7 g/dL [facility] RDW CV 13.2 11.1 - 14.9 % [facility] RDW SD 44.3 35.7 - 48.1 fL [facility] NRBC abs 0.00 0.00 - 0.01 K/cumm [facility] Blood 05/13/2023 12:1 0 AM DYE BOARDING MACHINE OPERATOR 05/13/2023 12:31 AM DYE BOARDING MACHINE OPERATOR Faustino Herrera MD LAB BLOOD ORDERABLES Final Result [facility] [place] [address] * XR Chest 1 View (05/12/2023 7:27 PM DYE BOARDING MACHINE OPERATOR) Anatomical Region Laterality Modality Body, Chest N/A Digital Radiogra phy 05/13/2023 6:11 AM DYE BOARDING MACHINE OPERATOR Impressions 05/13/2023 6:11 AM DYE BOARDING MACHINE OPERATOR Comparison is made to 2023. ??The right jugular catheter is been removed. ??There is an aortic stent graft. Atelectasis is seen within the left lung base. ??No pulmonary edema. No pleural effusion or pneumothorax. ??No pneumonic consolidation. Stable heart size. Electronically signed by: Gen Baker M.D. Narrative 05/13/2023 6:11 AM DYE BOARDING MACHINE OPERATOR EXAMINATION: 1 view chest radiograph Procedure Note [...] size. Electronically signed by: Gen Baker M.D. us Faustino Herrera MD IMG XR PROCEDURES Final Re sult * Critical Care (05/12/2023 4:16 PM DYE BOARDING MACHINE OPERATOR) Narrative Dalton Locke MD - 05/12/2023 4:16 PM DYE BOARDING MACHINE OPERATOR Dalton Locke MD ? 05/12/2023 ??4:16 PM [...] plan with the patient's team and other medical/business solutions consultant staff. This time was in addition [...] (ABNORMAL) CBC without differential (05/12/2023 1:58 PM DYE BOARDING MACHINE OPERATOR) [facility] WBC 13.0(H) 3.8 - 9.9 K/cumm [facility] Hgb 9.5(L) 13.0 - 17.5 g/dL [facility] Comment: Interpretive Data A reference range for this assay has not been established for patients with an unknown legal sex. Please refer to the laboratory test catalog for established sex-specific reference intervals. Current interpretive data was last revised on 2023. Hct 29.0(L) 38.9 - 50.3 % [facility] Comment: Interpretive Data A reference range for this assay has not been established for patients with an unknown legal sex. Please refer to the laboratory test catalog for established sex-specific reference intervals. Current interpretive data was last revised on 2023. Plt 478(H) 150 - 400 K/cumm [facility] MPV 9.7 9.1 - 12.3 fL [facility] RBC 3.18(L) 4.30 - 5.80 M/cumm [facility] Comment: Interpretive Data A reference range for this assay has not been established for patients with an unknown legal sex. Please refer to the laboratory test catalog for established sex-specific reference intervals. Current interpretive data was last revised on 2023. MCV 91.2 81.3 - 96.4 fL [facility] MCH 29.9 27.1 - 33.3 pg [facility] MCHC 32.8 32.3 - 35.7 g/dL [facility] RDW CV 13.2 11.1 - 14.9 % [facility] RDW SD 44.2 35.7 - 48.1 fL [facility] NRBC abs 0.00 0.00 - 0.01 K/cumm [facility] Blood 05/12/2023 1:58 PM DYE BOARDING MACHINE OPERATOR 05/12/2023 2:18 PM DYE BOARDING MACHINE OPERATOR Dustin Souza DO LAB BLOOD ORDERABLES F inal Result Performing Organization Address [facility] de Phone Number [facility] [place] [address] * Transfuse RBC (05/12/2023 11:13 AM DYE BOARDING MACHINE OPERATOR) Blood Faustino Herrera MD BLOOD TRANSFUSION ORDERABL ES Final Result Performing Organization Address [facility] de Phone Number [facility] [place] [place] [address] * Transfuse RBC: 1 Units (05/12/2023 11:13 AM DYE BOARDING MACHINE OPERATOR) Blood Faustino Herrera MD BLOOD TRANSFUSION ORDERABL ES Final Result * POCT glucose (05/12/2023 8:50 AM DYE BOARDING MACHINE OPERATOR) Glucose, POC 117 70 - 199 mg/dL [facility] Blood 05/12/2023 8:50 AM DYE BOARDING MACHINE OPERATOR 05/12/2023 8:50 AM DYE BOARDING MACHINE OPERATOR Faustino Herrera MD LAB POCT ORDERABLES - ROSIE CE Final Result Performing Organization Address [facility] de Phone Number [facility] [place] [place] [address] * Prepare RBC: 1 Units (05/12/2023 7:40 AM DYE BOARDING MACHINE OPERATOR) Product code [id number] Unit Number [id number] [facility] Product Blood Type ANEG [facility] Dispense Status PRESUMED TRANSFUSED [facility] Blood 05/12/2023 7:40 AM DYE BOARDING MACHINE OPERATOR 05/12/2023 7:40 AM DYE BOARDING MACHINE OPERATOR Narrative [facility] - 05/12/2023 4:02 PM DYE BOARDING MACHINE OPERATOR Other indication->Hgb goal >10 per vasc Are special requirements needed? (All products are leukoreduced and CMV- safe)- >No Date required:-[id number] LRRBC # of [id number] Reasons:-Other (specify)} Faustino Herrera MD BLOOD BANK PRODUCT ORDERAB LES Final Result [facility] [place] [address] * eGFR (05/12/2023 12:12 AM DYE BOARDING MACHINE OPERATOR) [facility] eGFR >90 >=60 mL/min/1. 73 m2 [facility] Comment: Interpretive Data Reference Interval Normal [...] reviewed 2021. Blood 05/12/2023 12:1 2 AM DYE BOARDING MACHINE OPERATOR 05/12/2023 12:39 AM DYE BOARDING MACHINE OPERATOR us Alonzo Duncan MD LAB BLOOD ORDERABLES Fin al Result Performing Organization Address City/[facility] Co de Phone Number [facility] [place] [address] * Potassium, whole blood (05/12/2023 12:12 AM DYE BOARDING MACHINE OPERATOR) Potassium, bld 4.1 3.3 - 4.9 mmol/L [facility] Blood 05/12/2023 12:1 2 AM DYE BOARDING MACHINE OPERATOR 05/12/2023 12:35 AM DYE BOARDING MACHINE OPERATOR us Anderson Tolentino Jr., TREE LAB BLOOD ORDERABLE S Final Result Performing Organization Address [facility] de Phone Number [facility] [place] [address] * (ABNORMAL) Triglycerides (05/12/2023 12:12 AM DYE BOARDING MACHINE OPERATOR) Triglycerides 183(H) <=149 mg/dL [facility] Comment: Interpretive Data Ages < or [...] on 2018. Blood 05/12/2023 12:1 2 AM DYE BOARDING MACHINE OPERATOR 05/12/2023 12:39 AM DYE BOARDING MACHINE OPERATOR Faustino Herrera MD LAB BLOOD ORDERABLES Final Result Performing Organization Address [facility] de Phone Number [facility] [place] [place] [address] * aPTT (05/12/2023 12:12 AM DYE BOARDING MACHINE OPERATOR) aPTT 28 28 - 38 sec [facility] Comment: Interpretive Data Heparin therapeutic range: 66.0 - 100.0 seconds. Range based on correlation with therapeutic heparin activity range of 0.3 - 0.7 Units/mL. Current interpretive data was last revised on 2023. Blood 05/12/2023 12:1 2 AM DYE BOARDING MACHINE OPERATOR 05/12/2023 12:39 AM DYE BOARDING MACHINE OPERATOR Faustino Herrera MD LAB BLOOD ORDERABLES Final Result Performing Organization Address [facility] de Phone Number [facility] [place] [place] [address] * (ABNORMAL) Protime-INR (05/12/2023 12:12 AM DYE BOARDING MACHINE OPERATOR) PT 15.3(H) 10.3 - 13.7 sec [facility] INR 1.34(H) 0.90 - 1.20 [facility] Comment: Interpretive data Oral anticoagulant therapeutic ranges: Venous thromboembolism prophylaxis or treatment: 2.0-3.0 CARDIOLOGY Standard range: 2.0-3.0 High-intensity range: 2.5-3.5 Refer to indication-specific guidelines for appropriate target ranges for prosthetic heart valve replacement. Current interpretive data was last revised on 2019. Blood 05/12/2023 12:1 2 AM DYE BOARDING MACHINE OPERATOR 05/12/2023 12:39 AM DYE BOARDING MACHINE OPERATOR Faustino Herrera MD LAB BLOOD ORDERABLES Final Result Performing Organization Address City/[facility]/ZIP Co de Phone Number [facility] [place] [place] [address] * Phosphorus (05/12/2023 12:12 AM DYE BOARDING MACHINE OPERATOR) Pathologist [facility] Phosphorus, pl 2.6 2.3 - 4.5 mg/dL [facility] Blood 05/12/2023 12:1 2 AM DYE BOARDING MACHINE OPERATOR 05/12/2023 12:39 AM DYE BOARDING MACHINE OPERATOR Faustino Herrera MD LAB BLOOD ORDERABLES Final Result Performing Organization Address [facility] Co de Phone Number [facility] [place] [place] [address] * Magnesium (05/12/2023 12:12 AM DYE BOARDING MACHINE OPERATOR) Pathologist [facility] Magnesium 2.3 1.4 - 2.5 mg/dL [facility] Blood 05/12/2023 12:1 2 AM DYE BOARDING MACHINE OPERATOR 05/12/2023 12:39 AM DYE BOARDING MACHINE OPERATOR Faustino Herrera MD LAB BLOOD ORDERABLES Final Result Performing Organization Address City/[facility] [place] [address] * Basic metabolic panel (05/12/2023 12:12 AM DYE BOARDING MACHINE OPERATOR) Sodium 136 135 - 145 mmol/L [facility] Potassium, pl 4.2 3.3 - 4.9 mmol/L [facility] Chloride 102 97 - 110 mmol/L [facility] CO2 24 22 - 32 mmol/L [facility] Anion gap 10 2 - 15 mmol/L [facility] BUN 19 6 - 25 mg/dL [facility] Creatinine 0.96 0.80 - 1.30 mg/dL [facility] Glucose 113 70 - 199 mg/dL [facility] Comment: Interpretive Data Fasting glucose >/= [...] 2022. Calcium 8.8 8.5 - 10.3 mg/dL [facility] Blood 05/12/2023 12:1 2 AM DYE BOARDING MACHINE OPERATOR 05/12/2023 12:39 AM DYE BOARDING MACHINE OPERATOR Faustino Herrera MD LAB BLOOD ORDERABLES Final Result [facility] [place] [address] * (ABNORMAL) CBC without differential (05/12/2023 12:12 AM DYE BOARDING MACHINE OPERATOR) [facility] WBC 13.6(H) 3.8 - 9.9 K/cumm [facility] Hgb 8.6(L) 13.0 - 17.5 g/dL [facility] Comment: Interpretive Data A reference range for this assay has not been established for patients with an unknown legal sex. Please refer to the laboratory test catalog for established sex-specific reference intervals. Current interpretive data was last revised on 2023. Hct 25.9(L) 38.9 - 50.3 % [facility] Comment: Interpretive Data A reference range for this assay has not been established for patients with an unknown legal sex. Please refer to the laboratory test catalog for established sex-specific reference intervals. Current interpretive data was last revised on 2023. Plt 483(H) 150 - 400 K/cumm [facility] MPV 9.6 9.1 - 12.3 fL [facility] RBC 2.82(L) 4.30 - 5.80 M/cumm [facility] Comment: Interpretive Data A reference range for this assay has not been established for patients with an unknown legal sex. Please refer to the laboratory test catalog for established sex-specific reference intervals. Current interpretive data was last revised on 2023. MCV 91.8 81.3 - 96.4 fL [facility] MCH 30.5 27.1 - 33.3 pg [facility] MCHC 33.2 32.3 - 35.7 g/dL [facility] RDW CV 13.5 11.1 - 14.9 % [facility] RDW SD 45.5 35.7 - 48.1 fL [facility] NRBC abs 0.00 0.00 - 0.01 K/cumm [facility] Blood 05/12/2023 12:1 2 AM DYE BOARDING MACHINE OPERATOR 05/12/2023 12:38 AM DYE BOARDING MACHINE OPERATOR Faustino Herrera MD LAB BLOOD ORDERABLES Final Result [facility] [place] [address] * XR Chest 1 View (2023 8:01 PM DYE BOARDING MACHINE OPERATOR) Anatomical Region Laterality Modality Body, Chest N/A Computed Radiogr aphy 05/12/2023 9:23 AM DYE BOARDING MACHINE OPERATOR Impressions 05/12/2023 9:46 AM DYE BOARDING MACHINE OPERATOR The current study is compared with the [...] Kamaljit Wheeler M.D. Narrative 05/12/2023 9:46 AM DYE BOARDING MACHINE OPERATOR EXAMINATION: 1 view chest radiograph Procedure Note [...] it. Electronically signed by: Kamaljit Wheeler M.D. Faustino Herrera MD IMG XR PROCEDURES Final Re sult * Critical Care (2023 4:16 PM DYE BOARDING MACHINE OPERATOR) Narrative Dalton Locke MD - 2023 4:16 PM DYE BOARDING MACHINE OPERATOR Dalton Locke MD ? 05/12/2023 ??4:16 PM [...] plan with the patient's team and other medical/business solutions consultant staff. This time was in addition [...] CTA Chest Abdomen Pelvis (2023 11:16 AM DYE BOARDING MACHINE OPERATOR) Anatomical Region Laterality Modality Body N/A Computed Tomogra phy 2023 11:5 7 AM DYE BOARDING MACHINE OPERATOR Impressions 2023 8:24 PM DYE BOARDING MACHINE OPERATOR 1. ??Residual type B thoracoabdominal aortic dissection [...] Monster Easley M.D. Narrative 2023 8:24 PM DYE BOARDING MACHINE OPERATOR EXAMINATION: CT ANGIOGRAPHY OF THE CHEST, ABDOMEN [...] Electronically signed by: Monster Easley M.D. us Faustino Herrera MD IMG CT PROCEDURES Final Re sult * eGFR (2023 12:14 AM DYE BOARDING MACHINE OPERATOR) eGFR 80 >=60 mL/min/1. 73 m2 [facility] Comment: Interpretive Data Reference Interval Normal [...] reviewed 2021. Blood 2023 12:1 4 AM DYE BOARDING MACHINE OPERATOR 2023 12:31 AM DYE BOARDING MACHINE OPERATOR us Alonzo Duncan MD LAB BLOOD ORDERABLES Fin al Result [facility] [place] [address] * (ABNORMAL) Blood gas, arterial (2023 12:14 AM DYE BOARDING MACHINE OPERATOR) pH, Art 7.43 7.35 - 7.45 [facility] PCO2, Arterial 34(L) 35 - 45 mmHg [facility] PO2, Arterial 110(H) 83 - 108 mmHg [facility] HCO3 Art (Calculated) 23 20 - 30 mmol/L [facility] BE, art -1 mmol/L [facility] Comment: Interpretive Data No Reference Range Established Current Interpretive Data was last revised on 2017 O2 Sat Art (Measured) 98(H) 90 - 95 % [facility] Blood 2023 12:1 4 AM DYE BOARDING MACHINE OPERATOR 2023 12:28 AM DYE BOARDING MACHINE OPERATOR Faustino Herrera MD LAB BLOOD ORDERABLES Final Result Performing Organization Address [facility] Co de Phone Number [facility] [place] [address] * Potassium, whole blood (2023 12:14 AM DYE BOARDING MACHINE OPERATOR) Potassium, bld 4.0 3.3 - 4.9 mmol/L [facility] Blood 2023 12:1 4 AM DYE BOARDING MACHINE OPERATOR 2023 12:28 AM DYE BOARDING MACHINE OPERATOR Result [facility] Anderson Tolentino Jr., TREE LAB BLOOD ORDERABLE S Final Result Performing Organization Address [facility] de Phone Number [facility] [place] [address] * aPTT (2023 12:14 AM DYE BOARDING MACHINE OPERATOR) aPTT 36 28 - 38 sec [facility] Comment: Interpretive Data Heparin therapeutic range: 66.0 - 100.0 seconds. Range based on correlation with therapeutic heparin activity range of 0.3 - 0.7 Units/mL. Current interpretive data was last revised on 2023. Blood 2023 12:1 4 AM DYE BOARDING MACHINE OPERATOR 2023 12:41 AM DYE BOARDING MACHINE OPERATOR Faustino Herrera MD LAB BLOOD ORDERABLES Final Result Performing Organization Address [facility] Co de Phone Number [facility] [place] [address] * (ABNORMAL) Protime-INR (2023 12:14 AM DYE BOARDING MACHINE OPERATOR) PT 15.8(H) 10.3 - 13.7 sec [facility] INR 1.39(H) 0.90 - 1.20 [facility] Comment: Interpretive data Oral anticoagulant therapeutic ranges: Venous thromboembolism prophylaxis or treatment: 2.0-3.0 CARDIOLOGY Standard range: 2.0-3.0 High-intensity range: 2.5-3.5 Refer to indication-specific guidelines for appropriate target ranges for prosthetic heart valve replacement. Current interpretive data was last revised on 2019. Blood 2023 12:1 4 AM DYE BOARDING MACHINE OPERATOR 2023 12:41 AM DYE BOARDING MACHINE OPERATOR Faustino Herrera MD LAB BLOOD ORDERABLES Final Result Performing Organization Address City/[facility]/ZIP Co de Phone Number [facility] [place] [address] * (ABNORMAL) Phosphorus (2023 12:14 AM DYE BOARDING MACHINE OPERATOR) Pathologist [facility] Phosphorus, pl 2.0(L) 2.3 - 4.5 mg/dL [facility] Blood 2023 12:1 4 AM DYE BOARDING MACHINE OPERATOR 2023 12:31 AM DYE BOARDING MACHINE OPERATOR Faustino Herrera MD LAB BLOOD [place] [address] * Magnesium (2023 12:14 AM DYE BOARDING MACHINE OPERATOR) Pathologist [facility] Magnesium 2.4 1.4 - 2.5 mg/dL [facility] Blood 2023 12:1 4 AM DYE BOARDING MACHINE OPERATOR 2023 12:31 AM DYE BOARDING MACHINE OPERATOR Faustino Herrera MD LAB BLOOD ORDERABLES Final Result [facility]ON [facility] [place] [address] * Basic metabolic panel (2023 12:14 AM DYE BOARDING MACHINE OPERATOR) Sodium 136 135 - 145 mmol/L [facility] Potassium, pl 4.1 3.3 - 4.9 mmol/L [facility] Chloride 100 97 - 110 mmol/L [facility] CO2 23 22 - 32 mmol/L [facility] Anion gap 13 2 - 15 mmol/L [facility] BUN 23 6 - 25 mg/dL [facility] Creatinine 1.24 0.80 - 1.30 mg/dL [facility] Glucose 121 70 - 199 mg/dL [facility] Comment: Interpretive Data Fasting glucose >/= [...] 2022. Calcium 8.9 8.5 - 10.3 mg/dL [facility] Blood 2023 12:1 4 AM DYE BOARDING MACHINE OPERATOR 2023 12:31 AM DYE BOARDING MACHINE OPERATOR Faustino Herrera MD LAB BLOOD ORDERABLES Final Result Performing Organization Address City/[facility]/ZIP Co de Phone Number JAIRON ERWIN [facility] [place] [address] * (ABNORMAL) CBC without differential (2023 12:14 AM DYE BOARDING MACHINE OPERATOR) WBC 17.6(H) 3.8 - 9.9 K/cumm [facility] Hgb 8.7(L) 13.0 - 17.5 g/dL [facility] Comment: Interpretive Data A reference range for this assay has not been established for patients with an unknown legal sex. Please refer to the laboratory test catalog for established sex-specific reference intervals. Current interpretive data was last revised on 2023. Hct 26.5(L) 38.9 - 50.3 % [facility] Comment: Interpretive Data A reference range for this assay has not been established for patients with an unknown legal sex. Please refer to the laboratory test catalog for established sex-specific reference intervals. Current interpretive data was last revised on 2023. Plt 411(H) 150 - 400 K/cumm [facility] MPV 9.6 9.1 - 12.3 fL [facility] RBC 2.93(L) 4.30 - 5.80 M/cumm [facility] Comment: Interpretive Data A reference range for this assay has not been established for patients with an unknown legal sex. Please refer to the laboratory test catalog for established sex-specific reference intervals. Current interpretive data was last revised on 2023. MCV 90.4 81.3 - 96.4 fL [facility] MCH 29.7 27.1 - 33.3 pg [facility] MCHC 32.8 32.3 - 35.7 g/dL [facility] RDW CV 13.5 11.1 - 14.9 % [facility] RDW SD 45.0 35.7 - 48.1 fL [facility] NRBC abs 0.02(H) 0.00 - 0.01 K/cumm [facility] Blood 2023 12:1 4 AM DYE BOARDING MACHINE OPERATOR 2023 12:31 AM DYE BOARDING MACHINE OPERATOR us Faustino Herrera MD LAB BLOOD ORDERABLES Final Result [facility] [place] [address] * XR Chest 1 View (05/10/2023 9:50 PM DYE BOARDING MACHINE OPERATOR) Anatomical Region Laterality Modality Body, Chest N/A Computed Radiogr aphy 2023 9:17 AM DYE BOARDING MACHINE OPERATOR Impressions 2023 9:27 AM DYE BOARDING MACHINE OPERATOR The current study is compared with the [...] Chung Boone M.D. Narrative 2023 9:27 AM DYE BOARDING MACHINE OPERATOR EXAMINATION: 1 view chest radiograph Procedure Note [...] * ECG 12 lead (05/10/2023 6:19 PM DYE BOARDING MACHINE OPERATOR) Ventricular Rate EKG/Min 119 BPM [facility] Atrial Rate 119 BPM [facility] FL-Interval (MSEC) 138 ms [facility] QRS-Interval (MSEC) 88 ms [facility] QT-Interval (MSEC) 322 ms [facility] QTc 452 ms [facility] P Willard 39 degrees [facility] R Willard -5 degrees [facility] T Willard 42 degrees [facility] Diagnosis Poor data quality, interpretation may be [...] Lateral leads Confirmed by ADAM VALVERDE M.D ([id number]) on 2023 11:47:49 AM [facility] 05/10/2023 6:19 PM DYE BOARDING MACHINE OPERATOR 2023 11:47 AM DYE BOARDING MACHINE OPERATOR Faustino Herrera MD ECG ORDERABLES Final Resu lt Performing Organization Address City/[facility] Co de Phone Number [facility] * Lidocaine level (05/10/2023 4:59 PM DYE BOARDING MACHINE OPERATOR) Lidocaine (Xylocaine) 3.8 1.5 - 5.0 mcg/mL [facility] Blood 05/10/2023 4:59 PM DYE BOARDING MACHINE OPERATOR 05/10/2023 5:09 PM DYE BOARDING MACHINE OPERATOR Faustino Herrera MD LAB BLOOD ORDERABLES Final Result Performing Organization Address City/[facility] Co de Phone Number [facility] [place] [address] * Critical Care (05/10/2023 4:14 PM DYE BOARDING MACHINE OPERATOR) Narrative Dalton Locke MD - 05/10/2023 4:14 PM DYE BOARDING MACHINE OPERATOR Dalton Locke MD ? 05/12/2023 ??4:16 PM [...] plan with the ICU team and other medical/business solutions consultant staff, making frequent assessments and decisions [...] * Blood culture Blood (05/10/2023 12:57 PM DYE BOARDING MACHINE OPERATOR) Report Final Report: No growth [facility] Blood 05/10/2023 12:5 7 PM DYE BOARDING MACHINE OPERATOR 05/10/2023 2:14 PM DYE BOARDING MACHINE OPERATOR Narrative [facility] - 05/14/2023 4:00 PM DYE BOARDING MACHINE OPERATOR Collection->Peripheral 1. ?Blood cultures are incubated for [...] organism identification may be performed using the [employer] Gram-Positive Blood Culture Assay. This assay detects microbial DNA in positive blood culture broth via hybridization of target DNA to capture oligonucleotides on a microarray. This assay has been cleared by the [place] Food and Drug Administration and its performance characteristics have been verified by the [facility] Microbiology Laboratory. 5. ?For questions about this culture, contact the Microbiology Laboratory at [phone]. Interpretive data was last revised on 2019. Marina Cordova NP LAB MICROBIOLOGY - GENERAL ORDERABLES Final Result JAIRON ERWIN [facility] [place] [address] * Blood culture Blood (05/10/2023 12:57 PM DYE BOARDING MACHINE OPERATOR) Report Final Report: No growth JAIRON ERWIN Blood 05/10/2023 12:5 7 PM DYE BOARDING MACHINE OPERATOR 05/10/2023 2:14 PM DYE BOARDING MACHINE OPERATOR Narrative JAIRON ERWIN - 05/14/2023 4:00 PM DYE BOARDING MACHINE OPERATOR Collection->Peripheral 1. ?Blood cultures are incubated for [...] organism identification may be performed using the [employer] Gram-Positive Blood Culture Assay. This assay detects microbial DNA in positive blood culture broth via hybridization of target DNA to capture oligonucleotides on a microarray. This assay has been cleared by the [place] Food and Drug Administration and its performance characteristics have been verified by the [facility] Microbiology Laboratory. 5. ?For questions about this culture, contact the Microbiology Laboratory at [phone]. Interpretive data was last revised on 2019. Marina Cordova NP LAB MICROBIOLOGY - GENERAL ORDERABLES Final Result Performing Organization Address [facility] Co de Phone Number [facility] [place] [place] [address] * Hepatic function panel (05/10/2023 12:37 AM DYE BOARDING MACHINE OPERATOR) Pathologist [facility] Bilirubin, total 0.7 0.1 - 1.2 mg/dL [facility] Bilirubin, direct 0.3 0.1 - 0.3 mg/dL [facility] Protein, pl 8.0 6.5 - 8.5 g/dL [facility] Albumin 3.7 3.5 - 5.0 g/dL [facility] Alk phos 88 40 - 130 Units/L [facility] ALT 28 7 - 55 Units/L [facility] AST 30 10 - 50 Units/L [facility] Blood 05/10/2023 12:3 7 AM DYE BOARDING MACHINE OPERATOR 05/10/2023 12:48 AM DYE BOARDING MACHINE OPERATOR Faustino Herrera MD LAB BLOOD ORDERABLES Final Result Performing Organization Address [facility]/ZIP Co de Phone Number [facility] [place] [place] [address] * eGFR (05/10/2023 12:37 AM DYE BOARDING MACHINE OPERATOR) eGFR >90 >=60 mL/min/1. 73 m2 [facility] Comment: Interpretive Data Reference Interval Normal [...] reviewed 2021. Blood 05/10/2023 12:3 7 AM DYE BOARDING MACHINE OPERATOR 05/10/2023 12:48 AM DYE BOARDING MACHINE OPERATOR us Alonzo Duncan MD LAB BLOOD ORDERABLES Fin al Result Performing Organization Address City/State/[facility] Phone Number [facility] [place] [address] * (ABNORMAL) Blood gas, arterial (05/10/2023 12:37 AM DYE BOARDING MACHINE OPERATOR) Pathologist [facility] pH, Art 7.41 7.35 - 7.45 [facility] PCO2, Arterial 34(L) 35 - 45 mmHg [facility] PO2, Arterial 131(H) 83 - 108 mmHg [facility] HCO3 Art (Calculated) 22 20 - 30 mmol/L [facility] BE, art -3 mmol/L [facility] Comment: Interpretive Data No Reference Range Established Current Interpretive Data was last revised on 2017 O2 Sat Art (Measured) 99(H) 90 - 95 % [facility] Blood 05/10/2023 12:3 7 AM DYE BOARDING MACHINE OPERATOR 05/10/2023 12:40 AM DYE BOARDING MACHINE OPERATOR us Faustino Herrera MD LAB BLOOD ORDERABLES Final Result Performing Organization Address [facility] Co de Phone Number [facility] [place] [address] * (ABNORMAL) Lactate (05/10/2023 12:37 AM DYE BOARDING MACHINE OPERATOR) Lactate 0.6(L) 0.7 - 2.0 mmol/L [facility] Blood 05/10/2023 12:3 7 AM DYE BOARDING MACHINE OPERATOR 05/10/2023 12:47 AM DYE BOARDING MACHINE OPERATOR us Alonzo Duncan MD LAB BLOOD ORDERABLES Fin al Result Performing Organization Address [facility] Co de Phone Number [facility] [place] [address] * Potassium, whole blood (05/10/2023 12:37 AM DYE BOARDING MACHINE OPERATOR) Potassium, bld 4.1 3.3 - 4.9 mmol/L [facility] Blood 05/10/2023 12:3 7 AM DYE BOARDING MACHINE OPERATOR 05/10/2023 12:40 AM DYE BOARDING MACHINE OPERATOR us Anderson Tolentino Jr., STATISTICIAN THEORETICAL LAB BLOOD ORDERABLE S Edited Result - Final Performing Organization Address [facility] Co de Phone Number [facility] [place] [place] [address] * Type and screen (05/10/2023 12:37 AM DYE BOARDING MACHINE OPERATOR) ABO Rh A Positive Ellen, indirect Negative [facility] Blood 05/10/2023 12:3 7 AM DYE BOARDING MACHINE OPERATOR 05/10/2023 12:41 AM DYE BOARDING MACHINE OPERATOR Narrative [facility] - 05/10/2023 1:24 AM DYE BOARDING MACHINE OPERATOR Has the patient had Daratumumab or Isatuximab in the past 6 months?->Unknown Faustino Herrera MD LAB BLOOD BANK TEST ORDERA BLES Final Result Performing Organization Address [facility] de Phone Number [facility] [place] [place] [address] * aPTT (05/10/2023 12:37 AM DYE BOARDING MACHINE OPERATOR) aPTT 32 28 - 38 sec [facility] Comment: Interpretive Data Heparin therapeutic range: 66.0 - 100.0 seconds. Range based on correlation with therapeutic heparin activity range of 0.3 - 0.7 Units/mL. Current interpretive data was last revised on 2023. Blood 05/10/2023 12:3 7 AM DYE BOARDING MACHINE OPERATOR 05/10/2023 12:53 AM DYE BOARDING MACHINE OPERATOR Faustino Herrera MD LAB BLOOD ORDERABLES Final Result Performing Organization Address [facility] [place] [address] * (ABNORMAL) Protime-INR (05/10/2023 12:37 AM DYE BOARDING MACHINE OPERATOR) PT 15.8(H) 10.3 - 13.7 sec [facility] INR 1.39(H) 0.90 - 1.20 [facility] Comment: Interpretive data Oral anticoagulant therapeutic ranges: Venous thromboembolism prophylaxis or treatment: 2.0-3.0 CARDIOLOGY Standard range: 2.0-3.0 High-intensity range: 2.5-3.5 Refer to indication-specific guidelines for appropriate target ranges for prosthetic heart valve replacement. Current interpretive data was last revised on 2019. Blood 05/10/2023 12:3 7 AM DYE BOARDING MACHINE OPERATOR 05/10/2023 12:53 AM DYE BOARDING MACHINE OPERATOR Faustino Herrera MD LAB BLOOD ORDERABLES Final Result Performing Organization Address City/[facility] Co de Phone Number [facility] [place] [employer] [place] [address] * Phosphorus (05/10/2023 12:37 AM DYE BOARDING MACHINE OPERATOR) Pathologist [facility] Phosphorus, pl 3.2 2.3 - 4.5 mg/dL [facility] Blood 05/10/2023 12:3 7 AM DYE BOARDING MACHINE OPERATOR 05/10/2023 12:48 AM DYE BOARDING MACHINE OPERATOR Faustino Herrera MD LAB BLOOD ORDERABLES Final Result Performing Organization Address [facility] de Phone Number [facility] [place] [place] [address] * (ABNORMAL) Magnesium (05/10/2023 12:37 AM DYE BOARDING MACHINE OPERATOR) [facility] Magnesium 2.7(H) 1.4 - 2.5 mg/dL [facility] Blood 05/10/2023 12:3 7 AM DYE BOARDING MACHINE OPERATOR 05/10/2023 12:48 AM DYE BOARDING MACHINE OPERATOR Faustino Herrera MD LAB BLOOD ORDERABLES Final Result Performing Organization Address [facility] de Phone Number [facility] [place] [employer] [place] [address] * (ABNORMAL) Basic metabolic panel (05/10/2023 12:37 AM DYE BOARDING MACHINE OPERATOR) [facility] Sodium 134(L) 135 - 145 mmol/L [facility] Potassium, pl 4.1 3.3 - 4.9 mmol/L [facility] Chloride 100 97 - 110 mmol/L [facility] CO2 23 22 - 32 mmol/L [facility] Anion gap 11 2 - 15 mmol/L [facility] BUN 18 6 - 25 mg/dL [facility] Creatinine 0.90 0.80 - 1.30 mg/dL [facility] Glucose 128 70 - 199 mg/dL [facility] Comment: Interpretive Data Fasting glucose >/= [...] 2022. Calcium 9.1 8.5 - 10.3 mg/dL [facility] Blood 05/10/2023 12:3 7 AM DYE BOARDING MACHINE OPERATOR 05/10/2023 12:48 AM DYE BOARDING MACHINE OPERATOR Faustino Herrera MD LAB BLOOD ORDERABLES Final Result [facility] [place] [address] * (ABNORMAL) CBC without differential (05/10/2023 12:37 AM DYE BOARDING MACHINE OPERATOR) [facility] WBC 18.7(H) 3.8 - 9.9 K/cumm [facility] Hgb 9.9(L) 13.0 - 17.5 g/dL [facility] Comment: Interpretive Data A reference range for this assay has not been established for patients with an unknown legal sex. Please refer to the laboratory test catalog for established sex-specific reference intervals. Current interpretive data was last revised on 2023. Hct 29.9(L) 38.9 - 50.3 % [facility] Comment: Interpretive Data A reference range for this assay has not been established for patients with an unknown legal sex. Please refer to the laboratory test catalog for established sex-specific reference intervals. Current interpretive data was last revised on 2023. Plt 390 150 - 400 K/cumm [facility] MPV 9.4 9.1 - 12.3 fL [facility] RBC 3.35(L) 4.30 - 5.80 M/cumm [facility] Comment: Interpretive Data A reference range for this assay has not been established for patients with an unknown legal sex. Please refer to the laboratory test catalog for established sex-specific reference intervals. Current interpretive data was last revised on 2023. MCV 89.3 81.3 - 96.4 fL [facility] MCH 29.6 27.1 - 33.3 pg [facility] MCHC 33.1 32.3 - 35.7 g/dL [facility] RDW CV 13.2 11.1 - 14.9 % [facility] RDW SD 43.5 35.7 - 48.1 fL [facility] NRBC abs 0.00 0.00 - 0.01 K/cumm [facility] Blood 05/10/2023 12:3 7 AM DYE BOARDING MACHINE OPERATOR 05/10/2023 12:48 AM DYE BOARDING MACHINE OPERATOR Faustino Herrera MD LAB BLOOD ORDERABLES Final Result Performing Organization Address City/[facility]/ZIP Co de Phone Number [facility] [place] [place] [address] * POCT glucose (05/10/2023 12:16 AM DYE BOARDING MACHINE OPERATOR) Glucose, POC 129 70 - 199 mg/dL [facility] Blood 05/10/2023 12:1 6 AM DYE BOARDING MACHINE OPERATOR 05/10/2023 12:16 AM DYE BOARDING MACHINE OPERATOR Faustino Herrera MD LAB POCT ORDERABLES - ROSIE CE Final Result Performing Organization Address City/[facility]/ZIP Co de Phone Number [facility] [place] [place] [address] * Oxyhemoglobin, central venous (05/09/2023 11:35 PM DYE BOARDING MACHINE OPERATOR) Oxyhemoglobin, CV 72.4 % [facility] Comment: Interpretive Data No reference range established. Current interpretive data was last revised 2019. Blood 05/09/2023 11:3 5 PM DYE BOARDING MACHINE OPERATOR 05/09/2023 11:45 PM DYE BOARDING MACHINE OPERATOR us Anderson Tolentino Jr., NP LAB BLOOD ORDERABLE S Final Result [facility] [place] [address] * XR Chest 1 View (05/09/2023 9:29 PM DYE BOARDING MACHINE OPERATOR) Anatomical Region Laterality Modality Body, Chest N/A Computed Radiogr aphy 05/10/2023 8:54 AM DYE BOARDING MACHINE OPERATOR Impressions 05/10/2023 6:37 PM DYE BOARDING MACHINE OPERATOR The current study is compared with the [...] Roldan Harrison M.D. Narrative 05/10/2023 6:37 PM DYE BOARDING MACHINE OPERATOR EXAMINATION: 1 view chest radiograph Procedure Note [...] * Potassium, whole blood (05/09/2023 8:16 PM DYE BOARDING MACHINE OPERATOR) Potassium, bld 4.3 3.3 - 4.9 mmol/L [facility] Blood 05/09/2023 8:16 PM DYE BOARDING MACHINE OPERATOR 05/09/2023 8:28 PM DYE BOARDING MACHINE OPERATOR Anderson Tolentino Jr., TREE LAB BLOOD ORDERABLE S Final Result Performing Organization Address City/[facility]/ZIP Co de Phone Number [facility] [place] [place] [address] * Lidocaine level (05/09/2023 6:20 PM DYE BOARDING MACHINE OPERATOR) Lidocaine (Xylocaine) 3.7 1.5 - 5.0 mcg/mL [facility] Blood 05/09/2023 6:20 PM DYE BOARDING MACHINE OPERATOR 05/09/2023 6:35 PM DYE BOARDING MACHINE OPERATOR Faustino Herrera MD LAB BLOOD ORDERABLES Final Result Performing Organization Address City/[facility]/ZIP Co de Phone Number [facility] [place] [place] [address] * Critical Care (05/09/2023 3:58 PM DYE BOARDING MACHINE OPERATOR) Narrative Dalton Locke MD - 05/09/2023 3:58 PM DYE BOARDING MACHINE OPERATOR Dalton Locke MD ? 05/12/2023 ??4:14 PM [...] plan with the ICU team and other medical/business solutions consultant staff, making frequent assessments and decisions [...] * Potassium, whole blood (05/09/2023 12:54 PM DYE BOARDING MACHINE OPERATOR) Potassium, bld 4.2 3.3 - 4.9 mmol/L [facility] Blood 05/09/2023 12:5 4 PM DYE BOARDING MACHINE OPERATOR 05/09/2023 1:03 PM DYE BOARDING MACHINE OPERATOR us Anderson Tolentino Jr., TREE LAB BLOOD ORDERABLE S Final Result [facility] Department of Laboratories [place], [place] [id number] * Hepatic function panel (05/09/2023 12:54 PM DYE BOARDING MACHINE OPERATOR) Bilirubin, total 0.9 0.1 - 1.2 mg/dL [facility] Bilirubin, direct 0.3 0.1 - 0.3 mg/dL [facility] Protein, pl 8.3 6.5 - 8.5 g/dL [facility] Albumin 4.1 3.5 - 5.0 g/dL [facility] Alk phos 93 40 - 130 Units/L [facility] ALT 30 7 - 55 Units/L [facility] AST 35 10 - 50 Units/L [facility] Blood 05/09/2023 12:5 4 PM DYE BOARDING MACHINE OPERATOR 05/09/2023 1:07 PM DYE BOARDING MACHINE OPERATOR Faustino Herrera MD LAB BLOOD ORDERABLES Final Result Performing Organization Address City/[facility] [place] [address] * Lipase (05/09/2023 12:54 PM DYE BOARDING MACHINE OPERATOR) Lipase 28 10 - 99 Units/L [facility] Blood 05/09/2023 12:5 4 PM DYE BOARDING MACHINE OPERATOR 05/09/2023 1:07 PM DYE BOARDING MACHINE OPERATOR Faustino Herrera MD LAB BLOOD ORDERABLES Final Result Performing Organization Address [facility] [place] [address] * US Vein Duplex Lower Extremity Bilateral Complete (05/09/2023 11:23 AM DYE BOARDING MACHINE OPERATOR) Anatomical Region Laterality Modality Vascular Bilateral Ultrasound 05/09/2023 9:31 AM DYE BOARDING MACHINE OPERATOR Narrative 05/09/2023 9:07 PM DYE BOARDING MACHINE OPERATOR [employer] - Department of Vascular Surgery, Vascular Laboratory [address] [place] [id number] Lower Extremity Venous Ultrasound Report Patient Name: ERIBERTO CHAU : 1990 (32y 11m) Study Date: 05/09/2023 9:31:37 AM Gender: M Tech: RI Location: [id number] Ref Provider: FAUSTINO HERRERA ?Quality: Adequate Order [...] and fever r/o DVT - FINDINGS: Performing Criminal Legal Assistant: Cheryle Soliz RVT, APPLE. Bilateral: Venous Doppler [...] above. Electronically Signed By: Pepe Gardner MD FACS 2023-05-09 21:07:13 DYE BOARDING MACHINE OPERATOR Procedure Note Pepe Gardner MD - 05/09/2023 [facility] - Department of Vascular Surgery,Vascular Laboratory [address] [place] [address] Lower Extremity Venous Ultrasound Report Patient Name: ERIBERTO CHAU : 1990 (32y 11m) Study Date: 05/09/2023 9:31:37 AM Gender: M Tech: RI Location: [id number] Ref Provider: FAUSTINO HERRERA Quality: Adequate Order Provider: FAUSTINO HERRERA PROCEDURES: Vascular Report: Venous Duplex imaging was performed bilaterally in the lower extremities.The common femoral, femoral, popliteal, posterior tibial, peroneal veins wereevaluated for patency, spontaneity and phasicity with Doppler, compression and augmentationmaneuvers. Great saphenous vein proximal at the junction was evaluated with compressionmaneuvers. INDICATIONS: post-op pain and fever r/o DVT - FINDINGS: Performing Criminal Legal Assistant: Cheryle Soliz RVT, RDMS. Bilateral: Venous Doppler [...] MD [facility] 2023-05-09 21:07:13 DYE BOARDING MACHINE OPERATOR Faustino Herrera MD IM US PROCEDURES Final Re sult * ECG 12 lead (05/09/2023 9:22 AM DYE BOARDING MACHINE OPERATOR) Ventricular Rate EKG/Min 88 BPM [facility] Atrial Rate 88 BPM [facility] FL-Interval (MSEC) 154 ms [facility] QRS-Interval (MSEC) 96 ms [facility] QT-Interval (MSEC) 368 ms [facility] QTc 445 ms [facility] R Willard 189 degrees [facility] T Willard 146 degrees [facility] Diagnosis Normal sinus rhythm Suspect limb lead reversal,inter pretation assumes reversal T wave abnormality, consider lateral ischemia Abnormal ECG When compared with ECG of 07-MAY-2023 18:46, (unconfirmed) leads misplaced Nonspecific T wave abnormality has replaced inverted T waves in Inferior leads Confirmed by ROSY AMARO M.D ([id number]) on 05/10/2023 9:41:27 AM [facility] 05/09/2023 9:22 AM DYE BOARDING MACHINE OPERATOR 05/10/2023 9:41 AM DYE BOARDING MACHINE OPERATOR us Marina Cordova STATISTICIAN THEORETICAL ECG ORDERABLES Final Resu lt [facility] * Potassium, whole blood (05/09/2023 8:04 AM DYE BOARDING MACHINE OPERATOR) Potassium, bld 4.1 3.3 - 4.9 mmol/L [facility] Blood 05/09/2023 8:04 AM DYE BOARDING MACHINE OPERATOR 05/09/2023 8:12 AM DYE BOARDING MACHINE OPERATOR Anderson Tolentino Jr., NP LAB BLOOD ORDERABLE S Final Result Performing Organization Address [facility]/ZIP Co de Phone Number [facility] [place] [address] * (ABNORMAL) POC Blood Gas and Chemistries, Arterial - (05/09/2023 6:22 AM DYE BOARDING MACHINE OPERATOR) pH, Art POC 7.36 7.35 - 7.45 [facility] pCO2, Art POC 35 35 - 45 mmHg [facility] pO2, Art POC 103 83 - 108 mmHg [facility] Na, POC 139 135 - 145 mmol/L [facility] K POC 4.4 3.3 - 4.9 mmol/L [facility] Comment: Interpretive Data This method is not able to assess for hemolysis, which may falsely increase potassium concentrations. If further testing is needed to evaluate this result, consider in-laboratory plasma potassium. Current Interpretive Data was last revised on 2022. Cl, POC 109 97 - 110 mmol/L [facility] Ionized Ca, POC 4.82 4.50 - 5.10 mg/dL [facility] Glucose, POC 136 70 - 199 mg/dL [facility] Lactate, POC 0.5(L) 0.7 - 2.2 mmol/L [facility] SO2 (natalia) arterial 99(H) 90 - 95 % [facility] Base excess, POC -5.1 mmol/L [facility] HCO3, Art POC 20 20 - 30 mmol/L [facility] Hct, POC 31.0(L) 41.4 - 51.6 % [facility] O2 Sat, Art POC (Calc) 98 % [facility] Total Hb, POC 10.2(L) 13.8 - 17.2 g/dL [facility] Blood 05/09/2023 6:22 AM DYE BOARDING MACHINE OPERATOR 05/09/2023 6:22 AM DYE BOARDING MACHINE OPERATOR us Faustino Herrera MD LAB POCT ORDERABLES - ROSIE CE Final Result Performing Organization Address City/[facility]/ZIP Co de Phone Number [facility] [place] [address] * Potassium, whole blood (05/09/2023 12:36 AM DYE BOARDING MACHINE OPERATOR) Pathologist [facility] Potassium, bld 3.9 3.3 - 4.9 mmol/L [facility] Blood 05/09/2023 12:3 6 AM DYE BOARDING MACHINE OPERATOR 05/09/2023 12:43 AM DYE BOARDING MACHINE OPERATOR us Anderson Tolentino Jr., TREE LAB BLOOD ORDERABLE S Final Result Performing Organization Address [facility] Co de Phone Number [facility] [place] [address] * (ABNORMAL) Blood gas, arterial (05/09/2023 12:36 AM DYE BOARDING MACHINE OPERATOR) pH, Art 7.39 7.35 - 7.45 [facility] PCO2, Arterial 29(L) 35 - 45 mmHg [facility] PO2, Arterial 108 83 - 108 mmHg [facility] HCO3 Art (Calculated) 18(L) 20 - 30 mmol/L [facility] BE, art -6 mmol/L [facility] Comment: Interpretive Data No Reference Range Established Current Interpretive Data was last revised on 2017 O2 Sat Art (Measured) 98(H) 90 - 95 % [facility] Blood 05/09/2023 12:3 6 AM DYE BOARDING MACHINE OPERATOR 05/09/2023 12:43 AM DYE BOARDING MACHINE OPERATOR us Faustino Herrera MD LAB BLOOD ORDERABLES Final Result Performing Organization Address [facility] de Phone Number [facility] [place] [address] * eGFR (05/09/2023 12:35 AM DYE BOARDING MACHINE OPERATOR) eGFR >90 >=60 mL/min/1. 73 m2 [facility] Comment: Interpretive Data Reference Interval Normal [...] reviewed 2021. Blood 05/09/2023 12:3 5 AM DYE BOARDING MACHINE OPERATOR 05/09/2023 12:56 AM DYE BOARDING MACHINE OPERATOR us Alonzo Duncan MD LAB BLOOD ORDERABLES Fin al Result Performing Organization Address [facility] Co de Phone Number [facility] [place] [address] * (ABNORMAL) Triglycerides (05/09/2023 12:35 AM DYE BOARDING MACHINE OPERATOR) Triglycerides 533(H) <=149 mg/dL [facility] Comment: Hemolyzed; result may be falsely elevated [...] on 2018. Blood 05/09/2023 12:3 5 AM DYE BOARDING MACHINE OPERATOR 05/09/2023 12:56 AM DYE BOARDING MACHINE OPERATOR us Faustino Herrera MD LAB BLOOD ORDERABLES Final Result Performing Organization Address City/State/[facility] Co de Phone Number [facility] [place] [address] * aPTT (05/09/2023 12:35 AM DYE BOARDING MACHINE OPERATOR) aPTT 33 28 - 38 sec [facility] Comment: Interpretive Data Heparin therapeutic range: 66.0 - 100.0 seconds. Range based on correlation with therapeutic heparin activity range of 0.3 - 0.7 Units/mL. Current interpretive data was last revised on 2023. Blood 05/09/2023 12:3 5 AM DYE BOARDING MACHINE OPERATOR 05/09/2023 12:54 AM DYE BOARDING MACHINE OPERATOR Faustino Herrera MD LAB BLOOD ORDERABLES Final Result Performing Organization Address [facility] de Phone Number [facility] [place] [address] * (ABNORMAL) Protime-INR (05/09/2023 12:35 AM DYE BOARDING MACHINE OPERATOR) PT 14.3(H) 10.3 - 13.7 sec [facility] INR 1.25(H) 0.90 - 1.20 [facility] Comment: Interpretive data Oral anticoagulant therapeutic ranges: Venous thromboembolism prophylaxis or treatment: 2.0-3.0 CARDIOLOGY Standard range: 2.0-3.0 High-intensity range: 2.5-3.5 Refer to indication-specific guidelines for appropriate target ranges for prosthetic heart valve replacement. Current interpretive data was last revised on 2019. Blood 05/09/2023 12:3 5 AM DYE BOARDING MACHINE OPERATOR 05/09/2023 12:54 AM DYE BOARDING MACHINE OPERATOR Faustino Herrera MD LAB BLOOD ORDERABLES Final Result Performing Organization Address [facility] de Phone Number [facility] [place] [address] * Phosphorus (05/09/2023 12:35 AM DYE BOARDING MACHINE OPERATOR) Phosphorus, pl 2.8 2.3 - 4.5 mg/dL [facility] Comment:Hemolyzed; result ma y be falsely elevated Blood 05/09/2023 12:3 5 AM DYE BOARDING MACHINE OPERATOR 05/09/2023 12:56 AM DYE BOARDING MACHINE OPERATOR Result [facility] Faustino Herrera MD LAB BLOOD ORDERABLES Final Result Performing Organization Address City/[facility]/ZIP Co de Phone Number [facility] [place] [address] * (ABNORMAL) Magnesium (05/09/2023 12:35 AM DYE BOARDING MACHINE OPERATOR) Pathologist [facility] Magnesium 2.7(H) 1.4 - 2.5 mg/dL [facility] Blood 05/09/2023 12:3 5 AM DYE BOARDING MACHINE OPERATOR 05/09/2023 12:56 AM DYE BOARDING MACHINE OPERATOR aFustino Herrera MD LAB BLOOD ORDERABLES Final Result Performing Organization Address [facility] de Phone Number [facility] [place] [address] * (ABNORMAL) Basic metabolic panel (05/09/2023 12:35 AM DYE BOARDING MACHINE OPERATOR) [facility] Sodium 134(L) 135 - 145 mmol/L [facility] Potassium, pl See Comment 3.3 - 4.9 mmol/L [facility] Comment:Credited; Hemolyzed Specimen Chloride 104 97 - 110 mmol/L [facility] CO2 20(L) 22 - 32 mmol/L [facility] Anion gap 10 2 - 15 mmol/L [facility] BUN 17 6 - 25 mg/dL [facility] Creatinine 0.86 0.80 - 1.30 mg/dL [facility] Glucose 142 70 - 199 mg/dL [facility] Comment: Interpretive Data Fasting glucose >/= [...] 2022. Calcium 8.5 8.5 - 10.3 mg/dL [facility] Blood 05/09/2023 12:3 5 AM DYE BOARDING MACHINE OPERATOR 05/09/2023 12:56 AM DYE BOARDING MACHINE OPERATOR Faustino Herrera MD LAB BLOOD ORDERABLES Final Result [facility] [place] [address] * (ABNORMAL) CBC without differential (05/09/2023 12:35 AM DYE BOARDING MACHINE OPERATOR) [facility] WBC 14.9(H) 3.8 - 9.9 K/cumm [facility] Hgb 10.1(L) 13.0 - 17.5 g/dL [facility] Comment: Interpretive Data A reference range for this assay has not been established for patients with an unknown legal sex. Please refer to the laboratory test catalog for established sex-specific reference intervals. Current interpretive data was last revised on 2023. Hct 30.1(L) 38.9 - 50.3 % [facility] Comment: Interpretive Data A reference range for this assay has not been established for patients with an unknown legal sex. Please refer to the laboratory test catalog for established sex-specific reference intervals. Current interpretive data was last revised on 2023. Plt 274 150 - 400 K/cumm [facility] MPV 9.4 9.1 - 12.3 fL [facility] RBC 3.32(L) 4.30 - 5.80 M/cumm [facility] Comment: Interpretive Data A reference range for this assay has not been established for patients with an unknown legal sex. Please refer to the laboratory test catalog for established sex-specific reference intervals. Current interpretive data was last revised on 2023. MCV 90.7 81.3 - 96.4 fL [facility] MCH 30.4 27.1 - 33.3 pg [facility] MCHC 33.6 32.3 - 35.7 g/dL [facility] RDW CV 13.2 11.1 - 14.9 % [facility] RDW SD 43.9 35.7 - 48.1 fL [facility] NRBC abs 0.02(H) 0.00 - 0.01 K/cumm [facility] Blood 05/09/2023 12:3 5 AM DYE BOARDING MACHINE OPERATOR 05/09/2023 12:56 AM DYE BOARDING MACHINE OPERATOR Faustino Herrera MD LAB BLOOD ORDERABLES Final Result [facility] [place] [address] * XR Chest 1 View (05/08/2023 7:59 PM DYE BOARDING MACHINE OPERATOR) Anatomical Region Laterality Modality Body, Chest N/A Digital Radiogra phy 05/09/2023 8:48 AM DYE BOARDING MACHINE OPERATOR Impressions 05/09/2023 11:38 AM DYE BOARDING MACHINE OPERATOR The current study is compared with the prior radiograph dated 05/07/2023. 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 ??Right internal jugular central venous catheter terminates at the superior cavoatrial junction. The cardiomediastinal silhouette is stable. ??Small lung volumes. ??No consolidation or pulmonary edema. ??No pleural effusion, though the right costophrenic angle is excluded from the [id number]. ??No pneumothorax. ?? Dictated by: Chris Turner MD The radiology attending physician has personally reviewed this study, and had reviewed and/or edited this written report and agrees with it. Electronically signed by: Hipolito Mobley M.D. Narrative 05/09/2023 11:38 AM DYE BOARDING MACHINE OPERATOR EXAMINATION: 1 view chest radiograph Procedure Note [...] right costophrenic angle is excluded from the [id number]. No pneumothorax. Dictated by: Chris Turner MD The radiology attending physician has personally reviewed this study, and had reviewed and/or edited this written report and agrees with it. Electronically signed by: Hipolito Mobley M.D. Faustino Herrera MD IMG XR PROCEDURES Final Re sult * (ABNORMAL) POC Blood Gas and Chemistries, Arterial - (05/08/2023 7:25 PM DYE BOARDING MACHINE OPERATOR) pH, Art POC 7.44 7.35 - 7.45 [facility] pCO2, Art POC 28(L) 35 - 45 mmHg [facility] pO2, Art POC 83 83 - 108 mmHg [facility] Na, POC 135 135 - 145 mmol/L [facility] K POC 4.0 3.3 - 4.9 mmol/L [facility] Comment: Interpretive Data This method is not able to assess for hemolysis, which may falsely increase potassium concentrations. If further testing is needed to evaluate this result, consider in-laboratory plasma potassium. Current Interpretive Data was last revised on 2022. Cl, POC 106 97 - 110 mmol/L [facility] Ionized Ca, POC 4.58 4.50 - 5.10 mg/dL [facility] Glucose, POC 143 70 - 199 mg/dL [facility] Lactate, POC 0.8 0.7 - 2.2 mmol/L [facility] SO2 (natalia) arterial 98(H) 90 - 95 % [facility] Base excess, POC -4.1 mmol/L [facility] HCO3, Art POC 19(L) 20 - 30 mmol/L [facility] Hct, POC 34.0(L) 41.4 - 51.6 % [facility] O2 Sat, Art POC (Calc) 97 % [facility] Total Hb, POC 11.2(L) 13.8 - 17.2 g/dL [facility] Blood 05/08/2023 7:25 PM DYE BOARDING MACHINE OPERATOR 05/08/2023 7:25 PM DYE BOARDING MACHINE OPERATOR Faustino Herrera MD LAB POCT ORDERABLES - ROSIE CE Final Result Performing Organization Address [facility] Co de Phone Number [facility] [place] [address] * Potassium, whole blood (05/08/2023 5:39 PM DYE BOARDING MACHINE OPERATOR) Potassium, bld 4.1 3.3 - 4.9 mmol/L [facility] Blood 05/08/2023 5:39 PM DYE BOARDING MACHINE OPERATOR 05/08/2023 5:49 PM DYE BOARDING MACHINE OPERATOR Anderson Tolentino Jr., STATISTICIAN THEORETICAL LAB BLOOD ORDERABLE S Final Result Performing Organization Address [facility] [place] [address] * Lidocaine level (05/08/2023 5:39 PM DYE BOARDING MACHINE OPERATOR) Pathologist [facility] Lidocaine (Xylocaine) 4.6 1.5 - 5.0 mcg/mL [facility] Blood 05/08/2023 5:39 PM DYE BOARDING MACHINE OPERATOR 05/08/2023 5:49 PM DYE BOARDING MACHINE OPERATOR Narrative [facility] - 05/08/2023 6:23 PM DYE BOARDING MACHINE OPERATOR Draw 24 hours after infusion started. us Faustino Herrera MD LAB BLOOD ORDERABLES Final Result Performing Organization Address [facility] [place] [address] * Critical Care (05/08/2023 2:53 PM DYE BOARDING MACHINE OPERATOR) Narrative Dalton Locke MD - 05/08/2023 2:53 PM DYE BOARDING MACHINE OPERATOR Dalton Locke MD ? 05/08/2023 ??2:57 PM Critical Care Performed by: Dalton oLcke MD Authorized by: Dalton Locke MD ?? [...] plan with the ICU team and other medical/business solutions consultant staff, making frequent assessments and decisions [...] us Dalton Locke MD IN CLINIC/BEDSIDE ORDERABLES Edited Result - Final * Potassium, whole blood (05/08/2023 11:44 AM DYE BOARDING MACHINE OPERATOR) Pathologist [facility] Potassium, bld 4.5 3.3 - 4.9 mmol/L [facility] Comment:Hemolyzed; results m ay be falsely elevated. Blood 05/08/2023 11:4 4 AM DYE BOARDING MACHINE OPERATOR 05/08/2023 12:02 PM DYE BOARDING MACHINE OPERATOR Anderson Tolentino Jr., TREE LAB BLOOD ORDERABLE S Final Result [facility] [place] [address] * Potassium, whole blood (05/08/2023 8:02 AM DYE BOARDING MACHINE OPERATOR) [facility] Potassium, bld 4.1 3.3 - 4.9 mmol/L [facility] Blood 05/08/2023 8:02 AM DYE BOARDING MACHINE OPERATOR 05/08/2023 8:09 AM DYE BOARDING MACHINE OPERATOR Anderson Tolentino Jr., TREE LAB BLOOD ORDERABLE S Final Result Performing Organization Address [facility] Co de Phone Number [facility] [place] [address] * (ABNORMAL) Blood gas, arterial (05/08/2023 8:02 AM DYE BOARDING MACHINE OPERATOR) [facility] pH, Art 7.36 7.35 - 7.45 [facility] PCO2, Arterial 34(L) 35 - 45 mmHg [facility] PO2, Arterial 89 83 - 108 mmHg [facility] HCO3 Art (Calculated) 19(L) 20 - 30 mmol/L [facility] BE, art -6 mmol/L [facility] Comment: Interpretive Data No Reference Range Established Current Interpretive Data was last revised on 2017 O2 Sat Art (Measured) 97(H) 90 - 95 % [facility] Blood 05/08/2023 8:02 AM DYE BOARDING MACHINE OPERATOR 05/08/2023 8:09 AM [facility] Faustino Herrera MD LAB BLOOD ORDERABLES Final Result Performing Organization Address [facility]/[place] [address] * eGFR (05/08/2023 1:08 AM DYE BOARDING MACHINE OPERATOR) [facility] eGFR >90 >=60 mL/min/1. 73 m2 [facility] Comment: Interpretive Data Reference Interval Normal [...] last reviewed 2021. Blood 05/08/2023 1:08 AM DYE BOARDING MACHINE OPERATOR 05/08/2023 1:24 AM DYE BOARDING MACHINE OPERATOR us Alonzo Duncan MD LAB BLOOD ORDERABLES Fin al Result [facility] [place] [address] * (ABNORMAL) Blood gas, arterial (05/08/2023 1:08 AM DYE BOARDING MACHINE OPERATOR) pH, Art 7.37 7.35 - 7.45 [facility] PCO2, Arterial 32(L) 35 - 45 mmHg [facility] PO2, Arterial 151(H) 83 - 108 mmHg [facility] HCO3 Art (Calculated) 19(L) 20 - 30 mmol/L [facility] BE, art -6 mmol/L [facility] Comment: Interpretive Data No Reference Range Established Current Interpretive Data was last revised on 2017 O2 Sat Art (Measured) 99(H) 90 - 95 % [facility] Blood 05/08/2023 1:08 AM DYE BOARDING MACHINE OPERATOR 05/08/2023 1:21 AM DYE BOARDING MACHINE OPERATOR Faustino Herrera MD LAB BLOOD ORDERABLES Final Result Performing Organization Address [facility] Co de Phone Number [facility] [place] [address] * Potassium, whole blood (05/08/2023 1:08 AM DYE BOARDING MACHINE OPERATOR) Potassium, bld 4.8 3.3 - 4.9 mmol/L [facility] Blood 05/08/2023 1:08 AM DYE BOARDING MACHINE OPERATOR 05/08/2023 1:21 AM DYE BOARDING MACHINE OPERATOR Anderson Tolentino Jr., NP LAB BLOOD ORDERABLE S Final Result Performing Organization Address [facility] de Phone Number [facility] [place] [employer] [place] [address] * aPTT (05/08/2023 1:08 AM DYE BOARDING MACHINE OPERATOR) Pathologist [facility] aPTT 35 28 - 38 sec [facility] Comment: Interpretive Data Heparin therapeutic range: 66.0 - 100.0 seconds. Range based on correlation with therapeutic heparin activity range of 0.3 - 0.7 Units/mL. Current interpretive data was last revised on 2023. Blood 05/08/2023 1:08 AM DYE BOARDING MACHINE OPERATOR 05/08/2023 1:40 AM DYE BOARDING MACHINE OPERATOR Faustino Herrera MD LAB BLOOD ORDERABLES Final Result Performing Organization Address [facility] [place] [address] * (ABNORMAL) Protime-INR (05/08/2023 1:08 AM DYE BOARDING MACHINE OPERATOR) PT 14.2(H) 10.3 - 13.7 sec [facility] INR 1.25(H) 0.90 - 1.20 [facility] Comment: Interpretive data Oral anticoagulant therapeutic ranges: Venous thromboembolism prophylaxis or treatment: 2.0-3.0 CARDIOLOGY Standard range: 2.0-3.0 High-intensity range: 2.5-3.5 Refer to indication-specific guidelines for appropriate target ranges for prosthetic heart valve replacement. Current interpretive data was last revised on 2019. Blood 05/08/2023 1:08 AM DYE BOARDING MACHINE OPERATOR 05/08/2023 1:40 AM DYE BOARDING MACHINE OPERATOR Faustino Herrera MD LAB BLOOD ORDERABLES Final Result Performing Organization Address [facility] de Phone Number [facility] [place] [place] [address] * Phosphorus (05/08/2023 1:08 AM DYE BOARDING MACHINE OPERATOR) Phosphorus, pl 3.6 2.3 - 4.5 mg/dL [facility] Blood 05/08/2023 1:08 AM DYE BOARDING MACHINE OPERATOR 05/08/2023 1:24 AM DYE BOARDING MACHINE OPERATOR Result [facility] Faustino Herrera MD LAB BLOOD ORDERABLES Final Result Performing Organization Address [facility] de Phone Number [facility] [place] [place] [address] * (ABNORMAL) Magnesium (05/08/2023 1:08 AM DYE BOARDING MACHINE OPERATOR) Magnesium 2.6(H) 1.4 - 2.5 mg/dL [facility] Blood 05/08/2023 1:08 AM DYE BOARDING MACHINE OPERATOR 05/08/2023 1:24 AM DYE BOARDING MACHINE OPERATOR Result [facility] Faustino Herrera MD LAB BLOOD ORDERABLES Final Result Performing Organization Address [facility] de Phone Number [facility] [place] [place] [address] * (ABNORMAL) Basic metabolic panel (05/08/2023 1:08 AM DYE BOARDING MACHINE OPERATOR) Sodium 134(L) 135 - 145 mmol/L [facility] Potassium, pl 4.9 3.3 - 4.9 mmol/L [facility] Chloride 104 97 - 110 mmol/L [facility] CO2 19(L) 22 - 32 mmol/L [facility] Anion gap 11 2 - 15 mmol/L [facility] BUN 18 6 - 25 mg/dL [facility] Creatinine 1.04 0.80 - 1.30 mg/dL [facility] Glucose 114 70 - 199 mg/dL [facility] Comment: Interpretive Data Fasting glucose >/= [...] 2022. Calcium 8.8 8.5 - 10.3 mg/dL [facility] Blood 05/08/2023 1:08 AM DYE BOARDING MACHINE OPERATOR 05/08/2023 1:24 AM DYE BOARDING MACHINE OPERATOR Fasutino Herrera MD LAB BLOOD ORDERABLES Final Result [facility] [place] [address] * (ABNORMAL) CBC without differential (05/08/2023 1:08 AM DYE BOARDING MACHINE OPERATOR) Pathologist [facility] WBC 14.2(H) 3.8 - 9.9 K/cumm [facility] Hgb 9.9(L) 13.0 - 17.5 g/dL [facility] Comment: Interpretive Data A reference range for this assay has not been established for patients with an unknown legal sex. Please refer to the laboratory test catalog for established sex-specific reference intervals. Current interpretive data was last revised on 2023. Hct 29.9(L) 38.9 - 50.3 % [facility] Comment: Interpretive Data A reference range for this assay has not been established for patients with an unknown legal sex. Please refer to the laboratory test catalog for established sex-specific reference intervals. Current interpretive data was last revised on 2023. Plt 298 150 - 400 K/cumm [facility] MPV 9.6 9.1 - 12.3 fL [facility] RBC 3.29(L) 4.30 - 5.80 M/cumm [facility] Comment: Interpretive Data A reference range for this assay has not been established for patients with an unknown legal sex. Please refer to the laboratory test catalog for established sex-specific reference intervals. Current interpretive data was last revised on 2023. MCV 90.9 81.3 - 96.4 fL [facility] MCH 30.1 27.1 - 33.3 pg [facility] MCHC 33.1 32.3 - 35.7 g/dL [facility] RDW CV 13.3 11.1 - 14.9 % [facility] RDW SD 45.0 35.7 - 48.1 fL [facility] NRBC abs 0.00 0.00 - 0.01 K/cumm [facility] Blood 05/08/2023 1:08 AM DYE BOARDING MACHINE OPERATOR 05/08/2023 1:24 AM DYE BOARDING MACHINE OPERATOR Faustino Herrera MD LAB BLOOD ORDERABLES Final Result [facility] [place] [address] * (ABNORMAL) POC Blood Gas and Chemistries, Arterial - (05/07/2023 8:40 PM DYE BOARDING MACHINE OPERATOR) pH, Art POC 7.34(L) 7.35 - 7.45 [facility] pCO2, Art POC 38 35 - 45 mmHg [facility] pO2, Art POC 79(L) 83 - 108 mmHg [facility] Na, POC 134(L) 135 - 145 mmol/L [facility] K POC 4.1 3.3 - 4.9 mmol/L [facility] Comment: Interpretive Data This method is not able to assess for hemolysis, which may falsely increase potassium concentrations. If further testing is needed to evaluate this result, consider in-laboratory plasma potassium. Current Interpretive Data was last revised on 2022. Cl, POC 104 97 - 110 mmol/L [facility] Ionized Ca, POC 4.92 4.50 - 5.10 mg/dL [facility] Glucose, POC 118 70 - 199 mg/dL [facility] Lactate, POC 0.6(L) 0.7 - 2.2 mmol/L [facility] SO2 (natalia) arterial 96(H) 90 - 95 % [facility] Base excess, POC -4.8 mmol/L [facility] HCO3, Art POC 20 20 - 30 mmol/L [facility] Hct, POC 36.0(L) 41.4 - 51.6 % [facility] O2 Sat, Art POC (Calc) 95 % [facility] Total Hb, POC 11.9(L) 13.8 - 17.2 g/dL [facility] Blood 05/07/2023 8:40 PM DYE BOARDING MACHINE OPERATOR 05/07/2023 8:40 PM DYE BOARDING MACHINE OPERATOR Faustino Herrera MD LAB POCT ORDERABLES - ROSIE CE Final Result [facility] [place] [address] * Troponin I high-sensitivity 2-hour (05/07/2023 8:36 PM DYE BOARDING MACHINE OPERATOR) Trop I hs 27 <=35 ng/L [facility] Comment: Interpretive Data For further hscTnI resources including the diagnostic algorithm and an aid in interpretation, copy and paste this link: https://bjhlab.testcatalog.org/show/[email or web address] Current Interpretive Data last revised 2019. Trop I hs delta -2 ng/L [facility] Trop I hs interp Insignificant [facility] Blood 05/07/2023 8:36 PM DYE BOARDING MACHINE OPERATOR 05/07/2023 8:52 PM DYE BOARDING MACHINE OPERATOR us Faustino Herrera MD LAB BLOOD ORDERABLES Final Result [facility] [place] [address] * XR Chest 1 View (05/07/2023 8:26 PM DYE BOARDING MACHINE OPERATOR) Anatomical Region Laterality Modality Body, Chest N/A Computed Radiogr aphy 05/08/2023 8:14 AM DYE BOARDING MACHINE OPERATOR Impressions 05/08/2023 8:14 AM DYE BOARDING MACHINE OPERATOR Comparison is made to radiograph of 05/06/2023 [...] Aaron Schafer M.D. Narrative 05/08/2023 8:14 AM DYE BOARDING MACHINE OPERATOR EXAMINATION: 2 serial 1 view chest radiograph [...] * ECG 12 lead (05/07/2023 6:46 PM DYE BOARDING MACHINE OPERATOR) [facility] Ventricular Rate EKG/Min 80 BPM [facility] Atrial Rate 80 BPM [facility] FL-Interval (MSEC) 158 ms [facility] QRS-Interval (MSEC) 94 ms [facility] QT-Interval (MSEC) 372 ms [facility] QTc 429 ms [facility] P Willard 33 degrees [facility] R Willard -4 degrees [facility] T Willard -62 degrees [facility] Diagnosis Normal sinus rhythm Possible Left atrial enlargement Left ventricular hypertrophy with repolarization abnormality ( R in aVL , Keith product ) Abnormal ECG When compared with ECG of 05-MAY-2023 18:56, (unconfirmed) No significant change was found Confirmed by ROSY AMARO M.D ([id number]) on 05/09/2023 9:45:33 AM [facility] 05/07/2023 6:46 PM DYE BOARDING MACHINE OPERATOR 05/09/2023 9:45 AM DYE BOARDING MACHINE OPERATOR us Faustino Herrera MD ECG ORDERABLES Final Resu lt [facility] * Troponin I high-sensitivity series (baseline, 2hr, 4hr, 6hr) (05/07/2023 6:15 PM DYE BOARDING MACHINE OPERATOR) [facility] Trop I hs 29 <=35 ng/L [facility] Comment: Interpretive Data For further [facility] resources including the diagnostic algorithm and an aid in interpretation, copy and paste this link: https://bjhlab.testcatalog.org/show/[email or web address] Current Interpretive Data last revised 2019. Blood 05/07/2023 6:15 PM DYE BOARDING MACHINE OPERATOR 05/07/2023 6:48 PM DYE BOARDING MACHINE OPERATOR us Faustino Herrera MD LAB BLOOD ORDERABLES Final Result Performing Organization Address [facility] Co de Phone Number [facility] [place] [address] * Potassium, whole blood (05/07/2023 5:57 PM DYE BOARDING MACHINE OPERATOR) [facility] Potassium, bld 4.2 3.3 - 4.9 mmol/L [facility] Blood 05/07/2023 5:57 PM DYE BOARDING MACHINE OPERATOR 05/07/2023 6:05 PM DYE BOARDING MACHINE OPERATOR Anderson Tolentino Jr., TREE LAB BLOOD ORDERABLE S Final Result Performing Organization Address [facility] Co de Phone Number [facility] [place] [employer] [place] [address] * (ABNORMAL) Blood gas, arterial (05/07/2023 5:57 PM DYE BOARDING MACHINE OPERATOR) [facility] pH, Art 7.47(H) 7.35 - 7.45 [facility] PCO2, Arterial 27(L) 35 - 45 mmHg [facility] PO2, Arterial 154(H) 83 - 108 mmHg [facility] HCO3 Art (Calculated) 20 20 - 30 mmol/L [facility] BE, art -3 mmol/L [facility] Comment: Interpretive Data No Reference Range Established Current Interpretive Data was last revised on 2017 O2 Sat Art (Measured) 100(H) 90 - 95 % [facility] Blood 05/07/2023 5:57 PM DYE BOARDING MACHINE OPERATOR 05/07/2023 6:05 PM DYE BOARDING MACHINE OPERATOR us Faustino Herrera MD LAB BLOOD ORDERABLES Final Result [facility] [place] [address] * XR Chest 1 View (05/07/2023 4:07 PM DYE BOARDING MACHINE OPERATOR) Anatomical Region Laterality Modality Body, Chest N/A Computed Radiogr aphy 05/08/2023 8:14 AM DYE BOARDING MACHINE OPERATOR Impressions 05/08/2023 8:14 AM DYE BOARDING MACHINE OPERATOR Comparison is made to radiograph of 05/06/2023 [...] Aaron Schafer M.D. Narrative 05/08/2023 8:14 AM DYE BOARDING MACHINE OPERATOR EXAMINATION: 2 serial 1 view chest radiograph [...] stable. Electronically signed by: Aaron Schafer M.D. us Faustino Herrera MD IMG XR PROCEDURES Final Re sult * (ABNORMAL) POC Blood Gas and Chemistries, Arterial - (05/07/2023 3:57 PM DYE BOARDING MACHINE OPERATOR) pH, Art POC 7.41 7.35 - 7.45 [facility] pCO2, Art POC 35 35 - 45 mmHg [facility] pO2, Art POC 60(L) 83 - 108 mmHg [facility] Na, POC 136 135 - 145 mmol/L [facility] K POC 3.8 3.3 - 4.9 mmol/L [facility] Comment: Interpretive Data This method is not able to assess for hemolysis, which may falsely increase potassium concentrations. If further testing is needed to evaluate this result, consider in-laboratory plasma potassium. Current Interpretive Data was last revised on 2022. Cl, POC 104 97 - 110 mmol/L [facility] Ionized Ca, POC 5.07 4.50 - 5.10 mg/dL [facility] Glucose, POC 116 70 - 199 mg/dL [facility] Lactate, POC 0.9 0.7 - 2.2 mmol/L [facility] SO2 (natalia) arterial 91 90 - 95 % [facility] Base excess, POC -2.0 mmol/L [facility] HCO3, Art POC 22 20 - 30 mmol/L [facility] Hct, POC 31.0(L) 41.4 - 51.6 % [facility] O2 Sat, Art POC (Calc) 91 % [facility] Total Hb, POC 10.4(L) 13.8 - 17.2 g/dL [facility] Blood 05/07/2023 3:57 PM DYE BOARDING MACHINE OPERATOR 05/07/2023 3:57 PM DYE BOARDING MACHINE OPERATOR Faustino Herrera MD LAB POCT ORDERABLES - ROSIE CE Final Result [facility] [place] [address] * Critical Care (05/07/2023 2:55 PM DYE BOARDING MACHINE OPERATOR) Narrative Dalton Locke MD - 05/07/2023 2:55 PM DYE BOARDING MACHINE OPERATOR Dalton Locke MD ? 05/08/2023 ??2:57 PM [...] plan with the ICU team and other medical/business solutions consultant staff, making frequent assessments and decisions [...] * Potassium, whole blood (05/07/2023 2:42 PM DYE BOARDING MACHINE OPERATOR) Potassium, bld 3.5 3.3 - 4.9 mmol/L [facility] Blood 05/07/2023 2:42 PM DYE BOARDING MACHINE OPERATOR 05/07/2023 2:48 PM DYE BOARDING MACHINE OPERATOR us Anderson Tolentino Jr., TREE LAB BLOOD ORDERABLE S Final Result Performing Organization Address [facility] Co de Phone Number [facility] [place] [address] * (ABNORMAL) Blood gas, arterial (05/07/2023 2:42 PM DYE BOARDING MACHINE OPERATOR) Pathologist [facility] pH, Art 7.41 7.35 - 7.45 [facility] PCO2, Arterial 37 35 - 45 mmHg [facility] PO2, Arterial 65(L) 83 - 108 mmHg [facility] HCO3 Art (Calculated) 24 20 - 30 mmol/L [facility] BE, art -1 mmol/L [facility] Comment: Interpretive Data No Reference Range Established Current Interpretive Data was last revised on 2017 O2 Sat Art (Measured) 92 90 - 95 % [facility] Blood 05/07/2023 2:42 PM DYE BOARDING MACHINE OPERATOR 05/07/2023 2:48 PM DYE BOARDING MACHINE OPERATOR us Faustino Herrera MD LAB BLOOD ORDERABLES Final Result [facility] [place] [address] * FL ARTL CATHJ/CANNULJ MNTR/TRANSFUSION SPX PRQ (05/07/2023 1:42 PM DYE BOARDING MACHINE OPERATOR) Narrative Dalton Locke MD - 05/07/2023 1:42 PM DYE BOARDING MACHINE OPERATOR Thea Rizzo MD ? 05/07/2023 ??1:51 PM Arterial Line Insertion Date/Time: 05/07/2023 1:42 PM Performed by: Thea Rizzo MD Authorized by: Thea Rizzo MD ?? Sheridan Protocol: 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 uniforms/guardian agrees and accepts Patient's stated name/ matches [...] items are accounted for: yes ?? us Thea Zabala MD IV THERAPY ORDERABLES Final Result * aPTT (05/07/2023 10:37 AM DYE BOARDING MACHINE OPERATOR) aPTT 35 28 - 38 sec [facility] Comment: Interpretive Data Heparin therapeutic range: 66.0 - 100.0 seconds. Range based on correlation with therapeutic heparin activity range of 0.3 - 0.7 Units/mL. Current interpretive data was last revised on 2023. Blood 05/07/2023 10:3 7 AM DYE BOARDING MACHINE OPERATOR 05/07/2023 10:46 AM DYE BOARDING MACHINE OPERATOR Faustino Herrera MD LAB BLOOD ORDERABLES Final Result Performing Organization Address [facility] de Phone Number [facility] [place] [address] * (ABNORMAL) Protime-INR (05/07/2023 10:37 AM DYE BOARDING MACHINE OPERATOR) PT 14.6(H) 10.3 - 13.7 sec [facility] INR 1.28(H) 0.90 - 1.20 [facility] Comment: Interpretive data Oral anticoagulant therapeutic ranges: Venous thromboembolism prophylaxis or treatment: 2.0-3.0 CARDIOLOGY Standard range: 2.0-3.0 High-intensity range: 2.5-3.5 Refer to indication-specific guidelines for appropriate target ranges for prosthetic heart valve replacement. Current interpretive data was last revised on 2019. Blood 05/07/2023 10:3 7 AM DYE BOARDING MACHINE OPERATOR 05/07/2023 10:46 AM DYE BOARDING MACHINE OPERATOR Faustino Herrera MD LAB BLOOD ORDERABLES Final Result Performing Organization Address [facility] de Phone Number [facility] [place] [address] * (ABNORMAL) Blood gas, arterial (05/07/2023 6:13 AM DYE BOARDING MACHINE OPERATOR) pH, Art 7.48(H) 7.35 - 7.45 [facility] PCO2, Arterial 38 35 - 45 mmHg [facility] PO2, Arterial 162(H) 83 - 108 mmHg [facility] HCO3 Art (Calculated) 29 20 - 30 mmol/L [facility] BE, art 5 mmol/L [facility] Comment: Interpretive Data No Reference Range Established Current Interpretive Data was last revised on 2017 O2 Sat Art (Measured) 100(H) 90 - 95 % [facility] Blood 05/07/2023 6:13 AM DYE BOARDING MACHINE OPERATOR 05/07/2023 6:26 AM DYE BOARDING MACHINE OPERATOR Faustino Herrera MD LAB BLOOD ORDERABLES Final Result Performing Organization Address [facility] Co de Phone Number [facility] [place] [address] * Potassium, whole blood (05/07/2023 5:56 AM DYE BOARDING MACHINE OPERATOR) Potassium, bld 3.9 3.3 - 4.9 mmol/L [facility] Blood 05/07/2023 5:56 AM DYE BOARDING MACHINE OPERATOR 05/07/2023 6:08 AM DYE BOARDING MACHINE OPERATOR Anderson Tolentino Jr., TREE LAB BLOOD ORDERABLE S Final Result Performing Organization Address [facility] de Phone Number [facility] [place] [address] * Potassium, whole blood (05/07/2023 3:58 AM DYE BOARDING MACHINE OPERATOR) Potassium, bld 4.2 3.3 - 4.9 mmol/L [facility] Blood 05/07/2023 3:58 AM DYE BOARDING MACHINE OPERATOR 05/07/2023 4:19 AM DYE BOARDING MACHINE OPERATOR Anderson Tolentino Jr., TREE LAB BLOOD ORDERABLE S Final Result Performing Organization Address [facility] [place] [address] * [place] ARTL CATHJ/CANNULJ MNTR/TRANSFUSION SPX PRQ (05/07/2023 2:50 AM DYE BOARDING MACHINE OPERATOR) Narrative Dalton Locke MD - 05/07/2023 2:50 AM DYE BOARDING MACHINE OPERATOR Michael Hamm MD ? 05/07/2023 ??2:52 AM Arterial Line Insertion Date/Time: 05/07/2023 2:50 AM Performed by: Michael Hamm MD Authorized by: Michael Hamm MD ?? Sheridan Protocol: RN Notified of Procedure: yes ?? [...] other items are accounted for: yes ?? Michael Hamm MD IV THERAPY ORDERAB LES Final Result * eGFR (05/07/2023 12:35 AM DYE BOARDING MACHINE OPERATOR) [facility] eGFR >90 >=60 mL/min/1. 73 m2 [facility] Comment: Interpretive Data Reference Interval Normal [...] reviewed 2021. Blood 05/07/2023 12:3 5 AM DYE BOARDING MACHINE OPERATOR 05/07/2023 12:47 AM DYE BOARDING MACHINE OPERATOR Alonzo Duncan MD LAB BLOOD ORDERABLES Fin al Result Performing Organization Address [facility] de Phone Number [facility] [place] [address] * (ABNORMAL) Blood gas, arterial (05/07/2023 12:35 AM DYE BOARDING MACHINE OPERATOR) pH, Art 7.52(H) 7.35 - 7.45 [facility] PCO2, Arterial 40 35 - 45 mmHg [facility] PO2, Arterial 117(H) 83 - 108 mmHg [facility] HCO3 Art (Calculated) 34(H) 20 - 30 mmol/L [facility] BE, art 9 mmol/L [facility] Comment: Interpretive Data No Reference Range Established Current Interpretive Data was last revised on 2017 O2 Sat Art (Measured) 99(H) 90 - 95 % [facility] Blood 05/07/2023 12:3 5 AM DYE BOARDING MACHINE OPERATOR 05/07/2023 12:45 AM DYE BOARDING MACHINE OPERATOR us Faustino Herrera MD LAB BLOOD ORDERABLES Final Result Performing Organization Address [facility] Co de Phone Number [facility] [place] [address] * Potassium, whole blood (05/07/2023 12:35 AM DYE BOARDING MACHINE OPERATOR) Potassium, bld 3.7 3.3 - 4.9 mmol/L [facility] Blood 05/07/2023 12:3 5 AM DYE BOARDING MACHINE OPERATOR 05/07/2023 12:45 AM DYE BOARDING MACHINE OPERATOR us Anderson Tolentino Jr., TREE LAB BLOOD ORDERABLE S Final Result Performing Organization Address [facility] de Phone Number [facility] [place] [address] * Type and screen (05/07/2023 12:35 AM DYE BOARDING MACHINE OPERATOR) Ellen, indirect Negative ABO Rh A Positive [facility] Blood 05/07/2023 12:3 5 AM DYE BOARDING MACHINE OPERATOR 05/07/2023 1:00 AM DYE BOARDING MACHINE OPERATOR Narrative [facility] - 05/07/2023 2:20 AM DYE BOARDING MACHINE OPERATOR Has the patient had Daratumumab or Isatuximab in the past 6 months?->Unknown Faustino Herrera MD LAB BLOOD BANK TEST ORDERA BLES Final Result Performing Organization Address [facility] Co de Phone Number [facility] [place] [address] * Phosphorus (05/07/2023 12:35 AM DYE BOARDING MACHINE OPERATOR) Phosphorus, pl 2.9 2.3 - 4.5 mg/dL [facility] Blood 05/07/2023 12:3 5 AM DYE BOARDING MACHINE OPERATOR 05/07/2023 12:47 AM DYE BOARDING MACHINE OPERATOR Faustino Herrera MD LAB BLOOD ORDERABLES Final Result Performing Organization Address [facility] Co de Phone Number [facility] [place] [address] * Magnesium (05/07/2023 12:35 AM DYE BOARDING MACHINE OPERATOR) Pathologist [facility] Magnesium 2.3 1.4 - 2.5 mg/dL [facility] Blood 05/07/2023 12:3 5 AM DYE BOARDING MACHINE OPERATOR 05/07/2023 12:47 AM DYE BOARDING MACHINE OPERATOR Faustino Herrera MD LAB BLOOD ORDERABLES Final Result [facility] [place] [address] * (ABNORMAL) Basic metabolic panel (05/07/2023 12:35 AM DYE BOARDING MACHINE OPERATOR) Pathologist [facility] Sodium 140 135 - 145 mmol/L [facility] Potassium, pl 3.8 3.3 - 4.9 mmol/L [facility] Chloride 97 97 - 110 mmol/L [facility] CO2 33(H) 22 - 32 mmol/L [facility] Anion gap 10 2 - 15 mmol/L [facility] BUN 20 6 - 25 mg/dL [facility] Creatinine 0.99 0.80 - 1.30 mg/dL [facility] Glucose 103 70 - 199 mg/dL [facility] Comment: Interpretive Data Fasting glucose >/= [...] 2022. Calcium 8.7 8.5 - 10.3 mg/dL [facility] Blood 05/07/2023 12:3 5 AM DYE BOARDING MACHINE OPERATOR 05/07/2023 12:47 AM DYE BOARDING MACHINE OPERATOR Faustino Herrera MD LAB BLOOD ORDERABLES Final Result [facility] [place] [address] * (ABNORMAL) CBC without differential (05/07/2023 12:35 AM DYE BOARDING MACHINE OPERATOR) WBC 13.6(H) 3.8 - 9.9 K/cumm [facility] Hgb 10.0(L) 13.0 - 17.5 g/dL [facility] Comment: Interpretive Data A reference range for this assay has not been established for patients with an unknown legal sex. Please refer to the laboratory test catalog for established sex-specific reference intervals. Current interpretive data was last revised on 2023. Hct 29.5(L) 38.9 - 50.3 % [facility] Comment: Interpretive Data A reference range for this assay has not been established for patients with an unknown legal sex. Please refer to the laboratory test catalog for established sex-specific reference intervals. Current interpretive data was last revised on 2023. Plt 244 150 - 400 K/cumm [facility] MPV 10.1 9.1 - 12.3 fL [facility] RBC 3.36(L) 4.30 - 5.80 M/cumm [facility] Comment: Interpretive Data A reference range for this assay has not been established for patients with an unknown legal sex. Please refer to the laboratory test catalog for established sex-specific reference intervals. Current interpretive data was last revised on 2023. MCV 87.8 81.3 - 96.4 fL [facility] MCH 29.8 27.1 - 33.3 pg [facility] MCHC 33.9 32.3 - 35.7 g/dL [facility] RDW CV 13.6 11.1 - 14.9 % [facility] RDW SD 43.8 35.7 - 48.1 fL [facility] NRBC abs 0.02(H) 0.00 - 0.01 K/cumm [facility] Blood 05/07/2023 12:3 5 AM DYE BOARDING MACHINE OPERATOR 05/07/2023 12:48 AM DYE BOARDING MACHINE OPERATOR us Faustino Herrera MD LAB BLOOD ORDERABLES Final Result Performing Organization Address [facility] Co de Phone Number [facility] [place] [address] * Lactate (05/07/2023 12:35 AM DYE BOARDING MACHINE OPERATOR) Lactate 1.2 0.7 - 2.0 mmol/L [facility] Blood 05/07/2023 12:3 5 AM DYE BOARDING MACHINE OPERATOR 05/07/2023 12:48 AM DYE BOARDING MACHINE OPERATOR us Alonzo Duncan MD LAB BLOOD ORDERABLES Fin al Result Performing Organization Address [facility] de Phone Number [facility] [place] [address] * (ABNORMAL) Triglycerides (05/07/2023 12:35 AM DYE BOARDING MACHINE OPERATOR) Triglycerides 346(H) <=149 mg/dL [facility] Comment: Interpretive Data Ages < or [...] on 2018. Blood 05/07/2023 12:3 5 AM DYE BOARDING MACHINE OPERATOR 05/07/2023 12:47 AM DYE BOARDING MACHINE OPERATOR us Sheila BRADFORD LAB BLOOD ORDERABLE S Final Result [facility] ERWIN [facility] [place] [address] * MRI Spine Total Complete WO Contrast (05/07/2023 12:10 AM DYE BOARDING MACHINE OPERATOR) Anatomical Region Laterality Modality Spine N/A Magnetic Resonan ce 05/07/2023 8:59 AM DYE BOARDING MACHINE OPERATOR Addenda Addendum by Veronica Hall MD on 05/08/2023 12:24 PM DYE BOARDING MACHINE OPERATOR ADDENDUM Diffusion-weighted images are performed. ??No evidence of cord ischemia. Electronically signed by: Veronica Hall M.D. Impressions 05/07/2023 10:15 AM DYE BOARDING MACHINE OPERATOR 1. ??Focal displacement of the cauda equina [...] post endovascular graft repair. Dictated by: Bassam Lnad MD The radiology attending physician has personally reviewed this study, and had reviewed and/or edited this written report and agrees with it. Electronically signed by: Veronica Hall M.D. Narrative 05/07/2023 10:15 AM DYE BOARDING MACHINE OPERATOR EXAMINATION: 1. Magnetic resonance imaging (MRI) of [...] by: Veronica Hall M.D. Faustino Herrera MD IMG MRI PROCEDURES Edited Result - Final * XR Chest 1 View (05/06/2023 10:08 PM DYE BOARDING MACHINE OPERATOR) Anatomical Region Laterality Modality Body, Chest N/A Digital Radiogra phy 05/07/2023 7:11 AM DYE BOARDING MACHINE OPERATOR Impressions 05/07/2023 7:11 AM DYE BOARDING MACHINE OPERATOR The current study is compared with the [...] Floridalma Oliva M.D. Narrative 05/07/2023 7:11 AM DYE BOARDING MACHINE OPERATOR EXAMINATION: 1 view chest radiograph Procedure Note [...] it. Electronically signed by: Floridalma Oliva M.D. us Faustino Herrera MD IMG XR PROCEDURES Final Re sult * INTUBATION (05/06/2023 9:36 PM DYE BOARDING MACHINE OPERATOR) Narrative Dalton Locke MD - 05/06/2023 9:36 PM DYE BOARDING MACHINE OPERATOR Dustin Souza, DO ? 05/06/2023 ??9:39 PM Intubation Date/Time: 05/06/2023 9:36 PM Performed by: Dustin Souza DO Authorized by: Dustin Souza DO ?? Sheridan Protocol: RN Notified of Procedure: yes ?? [...] the procedure well with no immediate complications Dustin Souza DO IN CLINIC/BEDSIDE SHAUNA LOPEZ Edited Result - Final * XR Chest 1 View (05/06/2023 7:41 PM DYE BOARDING MACHINE OPERATOR) Anatomical Region Laterality Modality Body, Chest N/A Computed Radiogr aphy 05/06/2023 8:04 PM DYE BOARDING MACHINE OPERATOR Impressions 05/06/2023 8:04 PM DYE BOARDING MACHINE OPERATOR The current study is compared with the prior radiograph dated ??05/05/2023. ??The heart is mildly enlarged there is a prominent aorta with an endoluminal aortic stent graft in place. ??Vascular stent is also seen superimposing arch vessel. ??There is no mass or lymphadenopathy no pulmonary edema no effusions. ??There is no pneumothorax.. Electronically signed by: Floridalma Oliva M.D. Narrative 05/06/2023 8:04 PM DYE BOARDING MACHINE OPERATOR EXAMINATION: 1 view chest radiograph Procedure Note [...] (ABNORMAL) Blood gas, arterial (05/06/2023 7:22 PM DYE BOARDING MACHINE OPERATOR) pH, Art 7.54(H) 7.35 - 7.45 [facility] PCO2, Arterial 39 35 - 45 mmHg [facility] PO2, Arterial 118(H) 83 - 108 mmHg [facility] HCO3 Art (Calculated) 34(H) 20 - 30 mmol/L [facility] BE, art 10 mmol/L [facility] Comment: Interpretive Data No Reference Range Established Current Interpretive Data was last revised on 2017 O2 Sat Art (Measured) 99(H) 90 - 95 % [facility] Blood 05/06/2023 7:22 PM DYE BOARDING MACHINE OPERATOR 05/06/2023 7:29 PM DYE BOARDING MACHINE OPERATOR us Faustino Herrera MD LAB BLOOD ORDERABLES Final Result [facility] [place] [address] * Potassium, whole blood (05/06/2023 7:22 PM DYE BOARDING MACHINE OPERATOR) Potassium, bld 3.8 3.3 - 4.9 mmol/L [facility] Blood 05/06/2023 7:22 PM DYE BOARDING MACHINE OPERATOR 05/06/2023 7:29 PM DYE BOARDING MACHINE OPERATOR us Anderson Tolentino Jr., TREE LAB BLOOD ORDERABLE S Final Result Performing Organization Address City/[facility]/ZIP Co de Phone Number [facility] [place] [address] * (ABNORMAL) Blood gas, arterial (05/06/2023 4:35 PM DYE BOARDING MACHINE OPERATOR) pH, Art 7.51(H) 7.35 - 7.45 [facility] PCO2, Arterial 42 35 - 45 mmHg [facility] PO2, Arterial 72(L) 83 - 108 mmHg [facility] HCO3 Art (Calculated) 34(H) 20 - 30 mmol/L [facility] BE, art 9 mmol/L [facility] Comment: Interpretive Data No Reference Range Established Current Interpretive Data was last revised on 2017 O2 Sat Art (Measured) 96(H) 90 - 95 % [facility] Blood 05/06/2023 4:35 PM DYE BOARDING MACHINE OPERATOR 05/06/2023 4:43 PM DYE BOARDING MACHINE OPERATOR Faustino Herrera MD LAB BLOOD ORDERABLES Final Result Performing Organization Address [facility] Co de Phone Number [facility] [place] [place] [address] * Potassium, whole blood (05/06/2023 4:35 PM DYE BOARDING MACHINE OPERATOR) Potassium, bld 4.0 3.3 - 4.9 mmol/L [facility] Blood 05/06/2023 4:35 PM DYE BOARDING MACHINE OPERATOR 05/06/2023 4:43 PM DYE BOARDING MACHINE OPERATOR Anderson Tolentino Jr., NP LAB BLOOD ORDERABLE S Final Result Performing Organization Address [facility] Co de Phone Number [facility] [place] [place] [address] * Potassium, whole blood (05/06/2023 10:30 AM DYE BOARDING MACHINE OPERATOR) Potassium, bld 3.5 3.3 - 4.9 mmol/L [facility] Blood 05/06/2023 10:3 0 AM DYE BOARDING MACHINE OPERATOR 05/06/2023 10:38 AM DYE BOARDING MACHINE OPERATOR Anderson Tolentino Jr., NP LAB BLOOD ORDERABLE S Edited Result - Final Performing Organization Address [facility] [place] [address] * (ABNORMAL) Blood gas, arterial (05/06/2023 10:30 AM DYE BOARDING MACHINE OPERATOR) pH, Art 7.48(H) 7.35 - 7.45 [facility] PCO2, Arterial 45 35 - 45 mmHg [facility] PO2, Arterial 98 83 - 108 mmHg [facility] HCO3 Art (Calculated) 34(H) 20 - 30 mmol/L [facility] BE, art 9 mmol/L [facility] Comment: Interpretive Data No Reference Range Established Current Interpretive Data was last revised on 2017 O2 Sat Art (Measured) 98(H) 90 - 95 % [facility] Blood 05/06/2023 10:3 0 AM DYE BOARDING MACHINE OPERATOR 05/06/2023 10:38 AM DYE BOARDING MACHINE OPERATOR us Faustino Herrera MD LAB BLOOD ORDERABLES Final Result [facility] Department [place] [place] [address] * Potassium, whole blood (05/06/2023 6:07 AM DYE BOARDING MACHINE OPERATOR) Potassium, bld 3.4 3.3 - 4.9 mmol/L [facility] Blood 05/06/2023 6:07 AM DYE BOARDING MACHINE OPERATOR 05/06/2023 6:21 AM DYE BOARDING MACHINE OPERATOR Anderson Tolentino Jr., TREE LAB BLOOD ORDERABLE S Final Result Performing Organization Address [facility] Co de Phone Number [facility] [place] [employer] [place] [address] * (ABNORMAL) POC Blood Gas and Chemistries, Arterial - (05/06/2023 1:32 AM DYE BOARDING MACHINE OPERATOR) pH, Art POC 7.48(H) 7.35 - 7.45 [facility] pCO2, Art POC 47(H) 35 - 45 mmHg [facility] pO2, Art POC 65(L) 83 - 108 mmHg [facility] Na, POC 141 135 - 145 mmol/L [facility] K POC 3.5 3.3 - 4.9 mmol/L [facility] Comment: Interpretive Data This method is not able to assess for hemolysis, which may falsely increase potassium concentrations. If further testing is needed to evaluate this result, consider in-laboratory plasma potassium. Current Interpretive Data was last revised on 2022. Cl, POC 101 97 - 110 mmol/L [facility] Ionized Ca, POC 4.27(L) 4.50 - 5.10 mg/dL [facility] Glucose, POC 122 70 - 199 mg/dL [facility] Lactate, POC 0.7 0.7 - 2.2 mmol/L [facility] SO2 (natalia) arterial 96(H) 90 - 95 % [facility] Base excess, POC 10.2 mmol/L [facility] HCO3, Art POC 35(H) 20 - 30 mmol/L [facility] Hct, POC 32.0(L) 41.4 - 51.6 % [facility] O2 Sat, Art POC (Calc) 94 % [facility] Total Hb, POC 10.7(L) 13.8 - 17.2 g/dL [facility] Blood 05/06/2023 1:32 AM DYE BOARDING MACHINE OPERATOR 05/06/2023 1:32 AM DYE BOARDING MACHINE OPERATOR Faustino Herrera MD LAB POCT ORDERABLES - ROSIE CE Final Result [facility] [place] [address] * (ABNORMAL) Troponin I high-sensitivity 6-hour (05/06/2023 1:28 AM DYE BOARDING MACHINE OPERATOR) Trop I hs 61(H) <=35 ng/L [facility] Comment: Interpretive Data For further [facility] resources including the diagnostic algorithm and an aid in interpretation, copy and paste this link: [email or web address] Current Interpretive Data last revised 2019. Trop I hs delta -13 ng/L [facility] Trop I hs interp Equivocal [facility] Blood 05/06/2023 1:28 AM DYE BOARDING MACHINE OPERATOR 05/06/2023 1:46 AM DYE BOARDING MACHINE OPERATOR Faustino Herrera MD LAB BLOOD ORDERABLES Final Result [facility] [place] [address] * (ABNORMAL) CBC without differential (05/06/2023 1:28 AM DYE BOARDING MACHINE OPERATOR) [facility] WBC 23.8(H) 3.8 - 9.9 K/cumm [facility] Hgb 10.5(L) 13.0 - 17.5 g/dL [facility] Comment: Interpretive Data A reference range for this assay has not been established for patients with an unknown legal sex. Please refer to the laboratory test catalog for established sex-specific reference intervals. Current interpretive data was last revised on 2023. Hct 31.2(L) 38.9 - 50.3 % [facility] Comment: Interpretive Data A reference range for this assay has not been established for patients with an unknown legal sex. Please refer to the laboratory test catalog for established sex-specific reference intervals. Current interpretive data was last revised on 2023. Plt 193 150 - 400 K/cumm [facility] MPV 10.7 9.1 - 12.3 fL [facility] RBC 3.46(L) 4.30 - 5.80 M/cumm [facility] Comment: Interpretive Data A reference range for this assay has not been established for patients with an unknown legal sex. Please refer to the laboratory test catalog for established sex-specific reference intervals. Current interpretive data was last revised on 2023. MCV 90.2 81.3 - 96.4 fL [facility] MCH 30.3 27.1 - 33.3 pg [facility] MCHC 33.7 32.3 - 35.7 g/dL [facility] RDW CV 13.4 11.1 - 14.9 % [facility] RDW SD 44.2 35.7 - 48.1 fL [facility] NRBC abs 0.14(H) 0.00 - 0.01 K/cumm [facility] Blood 05/06/2023 1:28 AM DYE BOARDING MACHINE OPERATOR 05/06/2023 1:46 AM DYE BOARDING MACHINE OPERATOR us Faustino Herrera MD LAB BLOOD ORDERABLES Final Result Performing Organization Address [facility] [place] [address] * Transfuse platelets (05/05/2023 11:48 PM DYE BOARDING MACHINE OPERATOR) Blood us Faustino Herrera MD BLOOD TRANSFUSION ORDERABL ES Final Result Performing Organization Address [facility] de Phone Number [facility] [place] [place] [address] * Transfuse platelets: 2 Units (05/05/2023 11:48 PM DYE BOARDING MACHINE OPERATOR) Blood us Faustino Herrera MD BLOOD TRANSFUSION ORDERABL ES Final Result * Transfuse platelets (05/05/2023 11:39 PM DYE BOARDING MACHINE OPERATOR) Blood us Faustino Herrera MD BLOOD TRANSFUSION ORDERABL ES Final Result Performing Organization Address [facility] de Phone Number [facility] Department [place] [place] [address] * Transfuse RBC (05/05/2023 11:18 PM DYE BOARDING MACHINE OPERATOR) Blood us Faustino Herrera MD BLOOD TRANSFUSION ORDERABL ES Final Result Performing Organization Address [facility] de Phone Number [facility] Department [place] [place] [address] * Transfuse RBC: 1 Units (05/05/2023 11:18 PM DYE BOARDING MACHINE OPERATOR) Blood Result Misty Herrera MD BLOOD TRANSFUSION ORDERABL ES Final Result * (ABNORMAL) POC Blood Gas and Chemistries, Arterial - (05/05/2023 9:15 PM DYE BOARDING MACHINE OPERATOR) pH, Art POC 7.46(H) 7.35 - 7.45 [facility] pCO2, Art POC 48(H) 35 - 45 mmHg [facility] pO2, Art POC 128(H) 83 - 108 mmHg [facility] Na, POC 140 135 - 145 mmol/L [facility] K POC 3.8 3.3 - 4.9 mmol/L [facility] Comment: Interpretive Data This method is not able to assess for hemolysis, which may falsely increase potassium concentrations. If further testing is needed to evaluate this result, consider in-laboratory plasma potassium. Current Interpretive Data was last revised on 2022. Cl, POC 102 97 - 110 mmol/L [facility] Ionized Ca, POC 4.49(L) 4.50 - 5.10 mg/dL [facility] Glucose, POC 140 70 - 199 mg/dL [facility] Lactate, POC 0.8 0.7 - 2.2 mmol/L [facility] SO2 (natalia) arterial 100(H) 90 - 95 % [facility] Base excess, POC 9.1 mmol/L [facility] HCO3, Art POC 34(H) 20 - 30 mmol/L [facility] Hct, POC 30.0(L) 41.4 - 51.6 % [facility] O2 Sat, Art POC (Calc) 99 % [facility] Total Hb, POC 9.9(L) 13.8 - 17.2 g/dL [facility] Blood 05/05/2023 9:15 PM DYE BOARDING MACHINE OPERATOR 05/05/2023 9:15 PM DYE BOARDING MACHINE OPERATOR us Faustino Herrera MD LAB POCT ORDERABLES - ROSIE CE Final Result [facility] [place] [address] * (ABNORMAL) Troponin I high-sensitivity 2-hour (05/05/2023 9:15 PM DYE BOARDING MACHINE OPERATOR) Pathologist [facility] Trop I hs 68(H) <=35 ng/L [facility] Comment: Interpretive Data For further hscTnI resources including the diagnostic algorithm and an aid in interpretation, copy and paste this link: [email or web address]/show/[email or web address] Current Interpretive Data last revised 2019. Trop I hs delta -6 ng/L [facility] Trop I hs interp Equivocal [facility] Blood 05/05/2023 9:15 PM DYE BOARDING MACHINE OPERATOR 05/05/2023 9:38 PM DYE BOARDING MACHINE OPERATOR Faustino Herrera MD LAB BLOOD ORDERABLES Final Result Performing Organization Address [facility] de Phone Number [facility] [place] [place] [address] * Prepare platelets: 2 Units (05/05/2023 8:17 PM DYE BOARDING MACHINE OPERATOR) Pathologist [facility] Product code [id number] Unit Number [id number] [facility] Product Blood Type APOS [facility] Dispense Status PRESUMED TRANSFUSED [facility] Blood (Blood, Venous) 05/05/2023 8:17 PM DYE BOARDING MACHINE OPERATOR 05/05/2023 8:17 PM DYE BOARDING MACHINE OPERATOR Narrative [facility] - 05/06/2023 4:02 PM DYE BOARDING MACHINE OPERATOR Specify Procedure:->Lumbar Drain Are special requirements needed? (all products are leukoreduced)->No Date required:-20230505 PLT # of Units:-2-Units Reasons:-Hold for procedure (specify procedure)} Faustino Herrera MD BLOOD BANK PRODUCT ORDERAB LES Final Result Performing Organization Address [facility] de Phone Number [facility] [place] [place] [address] * aPTT (05/05/2023 8:14 PM DYE BOARDING MACHINE OPERATOR) aPTT 35 28 - 38 sec [facility] Comment: Interpretive Data Heparin therapeutic range: 66.0 - 100.0 seconds. Range based on correlation with therapeutic heparin activity range of 0.3 - 0.7 Units/mL. Current interpretive data was last revised on 2023. Blood 05/05/2023 8:14 PM DYE BOARDING MACHINE OPERATOR 05/05/2023 8:22 PM DYE BOARDING MACHINE OPERATOR Faustino Herrera MD LAB BLOOD ORDERABLES Final Result Performing Organization Address [facility] [place] [address] * (ABNORMAL) Protime-INR (05/05/2023 8:14 PM DYE BOARDING MACHINE OPERATOR) Pathologist [facility] PT 16.9(H) 10.3 - 13.7 sec [facility] Comment: No clot detected in sample Repeated and verified - [id number] - 05/05/23, 8:59 PM INR 1.48(H) 0.90 - 1.20 [facility] Comment: No clot detected in sample Repeated and verified - [id number] - 05/05/23, 8:59 PM Interpretive data Oral anticoagulant therapeutic ranges: Venous thromboembolism prophylaxis or treatment: 2.0-3.0 CARDIOLOGY Standard range: 2.0-3.0 High-intensity range: 2.5-3.5 Refer to indication-specific guidelines for appropriate target ranges for prosthetic heart valve replacement. Current interpretive data was last revised on 2019. Blood 05/05/2023 8:14 PM DYE BOARDING MACHINE OPERATOR 05/05/2023 8:22 PM DYE BOARDING MACHINE OPERATOR Faustino Herrera MD LAB BLOOD ORDERABLES Final Result Performing Organization Address [facility] de Phone Number [facility] [place] [place] [address] * Prepare RBC: 1 Units (05/05/2023 7:56 PM DYE BOARDING MACHINE OPERATOR) Pathologist [facility] Product code [id number] Unit Number [id number] [facility] Product Blood Type APOS [facility] Dispense Status PRESUMED TRANSFUSED [facility] Blood 05/05/2023 7:56 PM DYE BOARDING MACHINE OPERATOR 05/05/2023 7:56 PM DYE BOARDING MACHINE OPERATOR Narrative [facility] - 05/06/2023 12:46 AM DYE BOARDING MACHINE OPERATOR Other indication->Protocol for c/f spinal cord ischemia Are special requirements needed? (All products are leukoreduced and CMV- safe)- >No Date required:-20230505 LRRBC # of [id number] Reasons:-Other (specify)} Faustino Herrera MD BLOOD BANK PRODUCT ORDERAB LES Final Result [facility] [place] [address] * XR Chest 1 View (05/05/2023 7:43 PM DYE BOARDING MACHINE OPERATOR) Anatomical Region Laterality Modality Body, Chest N/A Computed Radiogr aphy 05/06/2023 7:51 AM DYE BOARDING MACHINE OPERATOR Impressions 05/06/2023 7:51 AM DYE BOARDING MACHINE OPERATOR Comparison is made to prior chest radiograph [...] Ruthie Malone M.D. Narrative 05/06/2023 7:51 AM DYE BOARDING MACHINE OPERATOR EXAMINATION: 1 view chest radiograph Procedure Note [...] and Chemistries, Arterial - (05/05/2023 7:22 PM DYE BOARDING MACHINE OPERATOR) pH, Art POC 7.49(H) 7.35 - 7.45 [facility] pCO2, Art POC 44 35 - 45 mmHg [facility] pO2, Art POC 87 83 - 108 mmHg [facility] Na, POC 140 135 - 145 mmol/L [facility] K POC 3.7 3.3 - 4.9 mmol/L [facility] Comment: Interpretive Data This method is not able to assess for hemolysis, which may falsely increase potassium concentrations. If further testing is needed to evaluate this result, consider in-laboratory plasma potassium. Current Interpretive Data was last revised on 2022. Cl, POC 101 97 - 110 mmol/L [facility] Ionized Ca, POC 4.20(L) 4.50 - 5.10 mg/dL [facility] Glucose, POC 140 70 - 199 mg/dL [facility] Lactate, POC 1.0 0.7 - 2.2 mmol/L [facility] SO2 (natalia) arterial 99(H) 90 - 95 % [facility] Base excess, POC 9.2 mmol/L [facility] HCO3, Art POC 34(H) 20 - 30 mmol/L [facility] Hct, POC 30.0(L) 41.4 - 51.6 % [facility] O2 Sat, Art POC (Calc) 97 % [facility] Total Hb, POC 9.9(L) 13.8 - 17.2 g/dL [facility] Blood 05/05/2023 7:22 PM DYE BOARDING MACHINE OPERATOR 05/05/2023 7:22 PM DYE BOARDING MACHINE OPERATOR us Faustino Herrera MD LAB POCT ORDERABLES - ROSIE CE Final Result [facility] [place] [address] * (ABNORMAL) Troponin I high-sensitivity series (baseline, 2hr, 4hr, 6hr) (05/05/2023 7:22 PM DYE BOARDING MACHINE OPERATOR) Trop I hs 74(H) <=35 ng/L [facility] Comment: Interpretive Data For further hscTnI resources including the diagnostic algorithm and an aid in interpretation, copy and paste this link: [email or web address]/[email or web address] Current Interpretive Data last revised 2019. Blood 05/05/2023 7:22 PM DYE BOARDING MACHINE OPERATOR 05/05/2023 7:54 PM DYE BOARDING MACHINE OPERATOR us Faustino Herrera MD LAB BLOOD ORDERABLES Final Result Performing Organization Address [facility] Co de Phone Number [facility] [place] [address] * ECG 12 lead (05/05/2023 6:56 PM DYE BOARDING MACHINE OPERATOR) Pathologist [facility] Ventricular Rate EKG/Min 81 BPM [facility] Atrial Rate 81 BPM [facility] FL-Interval (MSEC) 164 ms [facility] QRS-Interval (MSEC) 98 ms [facility] QT-Interval (MSEC) 384 ms [facility] QTc 446 ms [facility] P Willard 57 degrees [facility] R Willard 8 degrees [facility] T Willard 187 degrees [facility] Diagnosis Normal sinus rhythm Left ventricular hypertrophy with repolarization abnormality ( [place] product ) Abnormal ECG No previous ECGs available Confirmed by ADAM VALVERDE M.D ([id number]) on 05/13/2023 11:55:53 AM [facility] 05/05/2023 6:56 PM DYE BOARDING MACHINE OPERATOR 05/13/2023 11:55 AM DYE BOARDING MACHINE OPERATOR Faustino Herrera MD ECG ORDERABLES Final Resu lt Performing Organization Address [facility] Co de Phone Number [facility] * CTA Chest Abdomen Pelvis (05/05/2023 6:28 PM DYE BOARDING MACHINE OPERATOR) Anatomical Region Laterality Modality Body N/A Computed Tomogra phy 05/05/2023 6:52 PM DYE BOARDING MACHINE OPERATOR Impressions 05/05/2023 8:42 PM DYE BOARDING MACHINE OPERATOR 1. ??Interval postprocedural changes of endovascular repair [...] Otoniel Avalos M.D. Narrative 05/05/2023 8:42 PM DYE BOARDING MACHINE OPERATOR EXAMINATION: CT ANGIOGRAPHY OF THE CHEST, ABDOMEN [...] the 3-D workstation and sent to the [employer] archival system. ?? COMPARISON: 05/02/2023 FINDINGS: ?? Chest: [...] sent to the PACS archival system. COMPARISON: 05/02/2023 FINDINGS: Chest: Interval [...] Electronically signed by: Otoniel Avalos M.D. us Faustino Herrera MD IMG CT PROCEDURES Final Re sult * TRANSTHORACIC ECHO (TTE) LIMITED/FOLLOW UP WO DOPPLER/CF WO CONTRAST W BUBBLE (05/05/2023 4:50 PM DYE BOARDING MACHINE OPERATOR) Anatomical Region Laterality Modality Ultrasound 05/05/2023 12:0 0 PM DYE BOARDING MACHINE OPERATOR Narrative 05/05/2023 5:06 PM DYE BOARDING MACHINE OPERATOR Patient name: Eriberto Chau Date of test: 05/05/2023 Type of test: Limited TTE [facility] #: 0 Date of : 1990 (M) Criminal Legal Assistant: Ellen Ely RDCS Referring Physician: FAUSTINO HERRERA MD Contrast Agent: Agitated Saline Bubble Study Performed Contrast Administered by: Oralia RN Supervised/Interpreted by: Trupti Ulloa MD Diagnosis: Location: [facility] Reason for test: Hypoxia, c/f cardiac shunt [...] 2=Hypo 3=Akinetic 4=Dyskin./Aneurysm 0=Not visualized) Parasternal Long Willard:MAS=1 BAS=1 MIL=1 GARO=1 Parasternal Short Willard:MAS=1 MIS=1 UT=1 MIL=1 MAL=1 MA=1 Apical 4 Chambers:=1 MIS=1 BIS=1 BAL=1 MAL=1 AL=1 AC=1 Apical 2 Chambers:AI=1 UT=1 BI=1 BA=1 MA=1 AA=1 AC=1 LV Global [...] MD By signing this report, the attending wire rigger certifies that he or she has personally supervised and interpreted the echocardiogram and has reviewed and or edited and agrees with the written comments contained within the report. Procedure Note Trupti Ulloa MD - 05/05/2023 Patient name: Eriberto Chau Date of test: 05/05/2023 Type of test: [facility] TTE [facility] #: 0 Date of : 1990 (M) Criminal Legal Assistant: Ellen Ely RDCS Referring Physician: FAUSTINO HERRERA MD Contrast Agent: Agitated Saline Bubble Study Performed Contrast Administered by: Oralia FRASER Supervised/Interpreted by: Trupti Ulloa MD Diagnosis: Location: [facility] Reason for test: Hypoxia, c/f cardiac shunt [...] 2=Hypo 3=Akinetic 4=Dyskin./Aneurysm 0=Not visualized) Parasternal Long Willard:MAS=1 BAS=1 MIL=1 GARO=1 Parasternal Short Willard:MAS=1 MIS=1 UT=1 MIL=1 MAL=1 MA=1 Apical 4 Chambers:=1 MIS=1 BIS=1 BAL=1 MAL=1 AL=1 AC=1 Apical 2 Chambers:AI=1 UT=1 BI=1 BA=1 MA=1 AA=1 AC=1 LV Global [...] MD By signing this report, the attending wire rigger certifies that he or she has personally supervised and interpreted the echocardiogram and has reviewed and or edited and agrees with the written comments contained within the report. us Faustino Herrera MD CV ECHO PROCEDURES Final R esult * Critical Care (05/05/2023 1:24 PM DYE BOARDING MACHINE OPERATOR) Narrative Carline Jerome MD - 05/05/2023 1:24 PM DYE BOARDING MACHINE OPERATOR Carline Jerome MD ? 05/05/2023 ??1:25 PM [...] plan with the ICU team and other medical/business solutions consultant staff, making frequent assessments and decisions [...] Pneumonia PCR Tracheal aspirate (05/05/2023 11:27 AM DYE BOARDING MACHINE OPERATOR) C. pneumoniae DNA Not Detected Not Detected [facility] Legionella pneumophila DNA Not Detected Not Detected [facility] M. pneumoniae DNA Not Detected Not Detected [facility] Adenovirus DNA Not Detected Not Detected [facility] Coronavirus (229E, OC43, HKU1, NL63) RNA Not Detected Not Detected [facility] Metapneumovirus RNA Not Detected Not Detected [facility] Rhinovirus/Enterov irus RNA Not Detected Not Detected [facility] Influenza A RNA Not Detected Not Detected [facility] Influenza B RNA Not Detected Not Detected [facility] Parainfluenza virus (1-4) RNA Not Detected Not Detected [facility] RSV RNA Not Detected Not Detected [facility] Tracheal aspirate 05/05/2023 11:27 AM DYE BOARDING MACHINE OPERATOR 05/05/2023 2:45 PM DYE BOARDING MACHINE OPERATOR Narrative [facility] - 05/05/2023 4:23 PM DYE BOARDING MACHINE OPERATOR The BioFire Pneumonia Panel is a multiplexed [...] rule out infection/co-infection with other organisms. The BioFire Pneumonia Panel is FDA cleared for lower respiratory tract specimens. The performance characteristics of this assay have been determined by [facility]. Current interpretive data was last revised on 2021. Sheila BRADFORD LAB MICROBIOLOGY - GENERAL ORDERABLES Final Result [facility] [place] [address] * (ABNORMAL) Pneumonia PCR with aerobic culture and Gram stain Tracheal aspirate (05/05/2023 11:27 AMCST) Direct Specimen Exam Molecular Analysis: 10^6 copies/mL Haemophilus influenzae Correlation of molecular analysis with final culture results is recommended. [facility] Direct Specimen Exam Stain: Abundant polymorphonuclear leukocytes seen. No squamous epithelial cells seen. No organisms seen. [facility] Report Final Report: Insignificant growth based on current clinical standards. (.) [facility] Tracheal aspirate 05/05/2023 11:27 AM DYE BOARDING MACHINE OPERATOR 05/05/2023 12:55 PM DYE BOARDING MACHINE OPERATOR Narrative [facility] - 05/07/2023 11:21 AM DYE BOARDING MACHINE OPERATOR When rapid molecular testing results are reported, testing completed using the [employer] You Pneumonia Panel. ??This molecular assay detects: Acinetobacter [...] results and susceptibility testing is recommended. The PlayroomArray Pneumonia Panel is cleared by the US Food and Drug Administration and its performance characteristics have been confirmed by the [facility]. ??The performance of the FilmArray Pneumonia Panel has not been established for monitoring treatment of infection and bacterial nucleic acids may persist independent of organism viability. Sheila BRADFORD LAB MICROBIOLOGY - GENERAL ORDERABLES Final Result [facility] [place] [address] * FL DIAGNOSTIC LUMBAR SPINAL PUNCTURE (05/05/2023 10:05 AM DYE BOARDING MACHINE OPERATOR) Narrative Shira Dodson MD - 05/05/2023 10:05 AM DYE BOARDING MACHINE OPERATOR Shira Dodson MD ? 2023 ??3:17 PM Lumbar Drain Date/Time: 05/05/2023 10:05 AM Performed by: Shira Dodson MD Authorized by: Shira Dodson MD ?? Sheridan Protocol: RN Notified of Procedure: yes ?? [...] (ABNORMAL) Blood gas, arterial (05/05/2023 8:21 AM DYE BOARDING MACHINE OPERATOR) pH, Art 7.42 7.35 - 7.45 [facility] PCO2, Arterial 52(H) 35 - 45 mmHg [facility] PO2, Arterial 117(H) 83 - 108 mmHg [facility] HCO3 Art (Calculated) 34(H) 20 - 30 mmol/L [facility] BE, art 8 mmol/L [facility] Comment: Interpretive Data No Reference Range Established Current Interpretive Data was last revised on 2017 O2 Sat Art (Measured) 99(H) 90 - 95 % [facility] Blood 05/05/2023 8:21 AM DYE BOARDING MACHINE OPERATOR 05/05/2023 8:28 AM DYE BOARDING MACHINE OPERATOR us Faustino Herrera MD LAB BLOOD ORDERABLES Final Result [facility] [place] [address] * Lactate (05/05/2023 8:21 AM DYE BOARDING MACHINE OPERATOR) Lactate 0.8 0.7 - 2.0 mmol/L [facility] Blood 05/05/2023 8:21 AM DYE BOARDING MACHINE OPERATOR 05/05/2023 8:27 AM DYE BOARDING MACHINE OPERATOR Alonzo Duncan MD LAB BLOOD ORDERABLES Fin al Result [facility] [place] [address] * (ABNORMAL) Blood gas, arterial (05/05/2023 4:51 AM DYE BOARDING MACHINE OPERATOR) Pathologist [facility] pH, Art 7.40 7.35 - 7.45 [facility] PCO2, Arterial 51(H) 35 - 45 mmHg [facility] PO2, Arterial 118(H) 83 - 108 mmHg [facility] HCO3 Art (Calculated) 32(H) 20 - 30 mmol/L [facility] BE, art 5 mmol/L [facility] Comment: Interpretive Data No Reference Range Established Current Interpretive Data was last revised on 2017 O2 Sat Art (Measured) 99(H) 90 - 95 % [facility] Blood 05/05/2023 4:51 AM DYE BOARDING MACHINE OPERATOR 05/05/2023 5:43 AM DYE BOARDING MACHINE OPERATOR us Faustino Herrera MD LAB BLOOD ORDERABLES Final Result Performing Organization Address [facility]/[place] [address] * Potassium, whole blood (05/05/2023 4:51 AM DYE BOARDING MACHINE OPERATOR) [facility] Potassium, bld 4.2 3.3 - 4.9 mmol/L [facility] Blood 05/05/2023 4:51 AM DYE BOARDING MACHINE OPERATOR 05/05/2023 5:43 AM DYE BOARDING MACHINE OPERATOR us Anderson Tolentino Jr., TREE LAB BLOOD ORDERABLE S Edited Result - Final Performing Organization Address [facility]/[place] [address] * eGFR (05/05/2023 12:12 AM DYE BOARDING MACHINE OPERATOR) [facility] eGFR 89 >=60 mL/min/1. 73 m2 [facility] Comment: Interpretive Data Reference Interval Normal [...] reviewed 2021. Blood 05/05/2023 12:1 2 AM DYE BOARDING MACHINE OPERATOR 05/05/2023 12:20 AM DYE BOARDING MACHINE OPERATOR us Alonzo Duncan MD LAB BLOOD ORDERABLES Fin al Result Performing Organization Address City/[facility] Co de Phone Number [facility] [place] [address] * Phosphorus (05/05/2023 12:12 AM DYE BOARDING MACHINE OPERATOR) Phosphorus, pl 2.9 2.3 - 4.5 mg/dL [facility] Blood 05/05/2023 12:1 2 AM DYE BOARDING MACHINE OPERATOR 05/05/2023 12:20 AM DYE BOARDING MACHINE OPERATOR Faustino Herrera MD LAB BLOOD ORDERABLES Final Result [facility] [place] [address] * Magnesium (05/05/2023 12:12 AM DYE BOARDING MACHINE OPERATOR) Pathologist [facility] Magnesium 1.8 1.4 - 2.5 mg/dL [facility] Blood 05/05/2023 12:1 2 AM DYE BOARDING MACHINE OPERATOR 05/05/2023 12:20 AM DYE BOARDING MACHINE OPERATOR Faustino Herrera MD LAB BLOOD ORDERABLES Final Result Performing Organization Address [facility] Co de Phone Number [facility] [place] [address] * (ABNORMAL) Basic metabolic panel (05/05/2023 12:12 AM DYE BOARDING MACHINE OPERATOR) [facility] Sodium 145 135 - 145 mmol/L [facility] Potassium, pl 4.4 3.3 - 4.9 mmol/L [facility] Chloride 106 97 - 110 mmol/L [facility] CO2 30 22 - 32 mmol/L [facility] Anion gap 9 2 - 15 mmol/L [facility] BUN 9 6 - 25 mg/dL [facility] Creatinine 1.14 0.80 - 1.30 mg/dL [facility] Glucose 126 70 - 199 mg/dL [facility] Comment: Interpretive Data Fasting glucose >/= [...] 2022. Calcium 8.1(L) 8.5 - 10.3 mg/dL [facility] Blood 05/05/2023 12:1 2 AM DYE BOARDING MACHINE OPERATOR 05/05/2023 12:20 AM DYE BOARDING MACHINE OPERATOR us Faustino Herrera MD LAB BLOOD ORDERABLES Final Result [facility] [place] [address] * (ABNORMAL) CBC without differential (05/05/2023 12:12 AM DYE BOARDING MACHINE OPERATOR) WBC 16.4(H) 3.8 - 9.9 K/cumm [facility] Hgb 9.4(L) 13.0 - 17.5 g/dL [facility] Comment: Interpretive Data A reference range for this assay has not been established for patients with an unknown legal sex. Please refer to the laboratory test catalog for established sex-specific reference intervals. Current interpretive data was last revised on 2023. Hct 27.9(L) 38.9 - 50.3 % [facility] Comment: Interpretive Data A reference range for this assay has not been established for patients with an unknown legal sex. Please refer to the laboratory test catalog for established sex-specific reference intervals. Current interpretive data was last revised on 2023. Plt 132(L) 150 - 400 K/cumm [facility] MPV 10.3 9.1 - 12.3 fL [facility] RBC 3.10(L) 4.30 - 5.80 M/cumm [facility] Comment: Interpretive Data A reference range for this assay has not been established for patients with an unknown legal sex. Please refer to the laboratory test catalog for established sex-specific reference intervals. Current interpretive data was last revised on 2023. MCV 90.0 81.3 - 96.4 fL [facility] MCH 30.3 27.1 - 33.3 pg [facility] MCHC 33.7 32.3 - 35.7 g/dL [facility] RDW CV 13.3 11.1 - 14.9 % [facility] RDW SD 43.4 35.7 - 48.1 fL [facility] NRBC abs 0.04(H) 0.00 - 0.01 K/cumm [facility] Blood 05/05/2023 12:1 2 AM DYE BOARDING MACHINE OPERATOR 05/05/2023 12:20 AM DYE BOARDING MACHINE OPERATOR us Faustino Herrera MD LAB BLOOD ORDERABLES Final Result [facility] [place] [address] * (ABNORMAL) Blood gas, arterial (05/04/2023 10:30 PM DYE BOARDING MACHINE OPERATOR) pH, Art 7.40 7.35 - 7.45 [facility] PCO2, Arterial 46(H) 35 - 45 mmHg [facility] PO2, Arterial 101 83 - 108 mmHg [facility] HCO3 Art (Calculated) 30 20 - 30 mmol/L [facility] BE, art 4 mmol/L [facility] Comment: Interpretive Data No Reference Range Established Current Interpretive Data was last revised on 2017 O2 Sat Art (Measured) 99(H) 90 - 95 % [facility] Blood 05/04/2023 10:3 0 PM DYE BOARDING MACHINE OPERATOR 05/04/2023 10:39 PM DYE BOARDING MACHINE OPERATOR us Faustino Herrera MD LAB BLOOD ORDERABLES Final Result [facility] [place] [address] * Potassium, whole blood (05/04/2023 10:30 PM DYE BOARDING MACHINE OPERATOR) Pathologist [facility] Potassium, bld 4.6 3.3 - 4.9 mmol/L [facility] Blood 05/04/2023 10:3 0 PM DYE BOARDING MACHINE OPERATOR 05/04/2023 10:39 PM DYE BOARDING MACHINE OPERATOR us Anderson Tolentino Jr., STATISTICIAN THEORETICAL LAB BLOOD ORDERABLE S Final Result [facility] [place] [address] * (ABNORMAL) Triglycerides (05/04/2023 10:30 PM DYE BOARDING MACHINE OPERATOR) Triglycerides 179(H) <=149 mg/dL [facility] Comment: Interpretive Data Ages < [...] on 2018. Blood 05/04/2023 10:3 0 PM DYE BOARDING MACHINE OPERATOR 05/04/2023 10:42 PM DYE BOARDING MACHINE OPERATOR Radha Duran NP LAB BLOOD ORDERABLES Final Re sult Performing Organization Address City/State/[facility] Co de Phone Number [facility] [place] [address] * XR Chest 1 View (05/04/2023 8:58 PM DYE BOARDING MACHINE OPERATOR) Anatomical Region Laterality Modality Body, Chest N/A Computed Radiogr aphy 05/05/2023 9:48 AM DYE BOARDING MACHINE OPERATOR Impressions 05/05/2023 11:41 AM DYE BOARDING MACHINE OPERATOR The current study is compared with the [...] Marlee Jimenez M.D. Narrative 05/05/2023 11:41 AM DYE BOARDING MACHINE OPERATOR EXAMINATION: 1 view chest radiograph Procedure Note [...] it. Electronically signed by: Marlee Jimenez M.D. Deniz BRADFORD IMG XR PROCEDURES Final R esult * Potassium, whole blood (05/04/2023 6:31 PM DYE BOARDING MACHINE OPERATOR) [facility] Potassium, bld 3.8 3.3 - 4.9 mmol/L [facility] Blood 05/04/2023 6:31 PM DYE BOARDING MACHINE OPERATOR 05/04/2023 6:39 PM DYE BOARDING MACHINE OPERATOR us Anderson Tolentino Jr., NP LAB BLOOD ORDERABLE S Final Result [facility] [place] [address] * Critical Care (05/04/2023 3:00 PM DYE BOARDING MACHINE OPERATOR) Narrative Carline Jerome MD - 05/04/2023 3:00 PM DYE BOARDING MACHINE OPERATOR Carline Jerome MD ? 05/04/2023 ??3:01 PM [...] plan with the ICU team and other medical/business solutions consultant staff, making frequent assessments and decisions [...] spent time documenting in the medical record Carline Jerome MD IN CLINIC/BEDSIDE ORDERABL ES Final Result * POCT glucose (05/04/2023 1:42 PM DYE BOARDING MACHINE OPERATOR) [facility] Glucose, POC 108 70 - 199 mg/dL [facility] Blood 05/04/2023 1:42 PM DYE BOARDING MACHINE OPERATOR 05/04/2023 1:42 PM DYE BOARDING MACHINE OPERATOR Faustino Herrera MD LAB POCT ORDERABLES - ROSIE CE Final Result Performing Organization Address [facility] Co de Phone Number [facility] [place] [address] * Potassium, whole blood (05/04/2023 11:27 AM DYE BOARDING MACHINE OPERATOR) [facility] Potassium, bld 4.2 3.3 - 4.9 mmol/L [facility] Comment:Hemolyzed; results m ay be falsely elevated. Blood 05/04/2023 11:2 7 AM DYE BOARDING MACHINE OPERATOR 05/04/2023 11:34 AM DYE BOARDING MACHINE OPERATOR Anderson Tolentino Jr., STATISTICIAN THEORETICAL LAB BLOOD ORDERABLE S Final Result Performing Organization Address City/[facility] Co de Phone Number [facility] [place] [address] * (ABNORMAL) Blood gas, arterial (05/04/2023 11:23 AM DYE BOARDING MACHINE OPERATOR) [facility] pH, Art 7.33(L) 7.35 - 7.45 [facility] PCO2, Arterial 44 35 - 45 mmHg [facility] PO2, Arterial 177(H) 83 - 108 mmHg [facility] HCO3 Art (Calculated) 24 20 - 30 mmol/L [facility] BE, art -2 mmol/L [facility] Comment: Interpretive Data No Reference Range Established Current Interpretive Data was last revised on 2017 O2 Sat Art (Measured) 99(H) 90 - 95 % [facility] Blood 05/04/2023 11:2 3 AM DYE BOARDING MACHINE OPERATOR 05/04/2023 11:34 AM DYE BOARDING MACHINE OPERATOR Result [facility] Faustino Herrera MD LAB BLOOD ORDERABLES Final Result Performing Organization Address [facility] de Phone Number [facility] [place] [address] * Type and screen (05/04/2023 11:23 AM DYE BOARDING MACHINE OPERATOR) [facility] ABO Rh A Positive Ellen, indirect Negative [facility] Blood 05/04/2023 11:2 3 AM DYE BOARDING MACHINE OPERATOR 05/04/2023 11:38 AM DYE BOARDING MACHINE OPERATOR Narrative [facility] - 05/04/2023 12:43 PM DYE BOARDING MACHINE OPERATOR Has the patient had Daratumumab or Isatuximab in the past 6 months?->Unknown Result [facility] Faustino Herrera MD LAB BLOOD BANK TEST ORDERA BLES Final Result [facility] [place] [address] * POCT glucose (05/04/2023 7:48 AM DYE BOARDING MACHINE OPERATOR) [facility] Glucose, POC 99 70 - 199 mg/dL [facility] Blood 05/04/2023 7:48 AM DYE BOARDING MACHINE OPERATOR 05/04/2023 7:48 AM DYE BOARDING MACHINE OPERATOR Faustino Herrera MD LAB POCT ORDERABLES - ROSIE CE Final Result Performing Organization Address City/[facility]/ZIP Co de Phone Number [facility] [place] [address] * (ABNORMAL) POC Blood Gas and Chemistries, Arterial - (05/04/2023 3:03 AM DYE BOARDING MACHINE OPERATOR) pH, Art POC 7.34(L) 7.35 - 7.45 [facility] pCO2, Art POC 38 35 - 45 mmHg [facility] pO2, Art POC 73(L) 83 - 108 mmHg [facility] Na, POC 141 135 - 145 mmol/L [facility] K POC 3.5 3.3 - 4.9 mmol/L [facility] Comment: Interpretive Data This method is not able to assess for hemolysis, which may falsely increase potassium concentrations. If further testing is needed to evaluate this result, consider in-laboratory plasma potassium. Current Interpretive Data was last revised on 2022. Cl, POC 112(H) 97 - 110 mmol/L [facility] Ionized Ca, POC 4.33(L) 4.50 - 5.10 mg/dL [facility] Glucose, POC 115 70 - 199 mg/dL [facility] Lactate, POC 0.8 0.7 - 2.2 mmol/L [facility] SO2 (natalia) arterial 97(H) 90 - 95 % [facility] Base excess, POC -4.8 mmol/L [facility] HCO3, Art POC 20 20 - 30 mmol/L [facility] Hct, POC 26.0(L) 41.4 - 51.6 % [facility] O2 Sat, Art POC (Calc) 94 % [facility] Total Hb, POC 8.7(L) 13.8 - 17.2 g/dL [facility] Blood 05/04/2023 3:03 AM DYE BOARDING MACHINE OPERATOR 05/04/2023 3:03 AM DYE BOARDING MACHINE OPERATOR Faustino Herrera MD LAB POCT ORDERABLES - ROSIE CE Final Result Performing Organization Address City/[facility]/ZIP Co de Phone Number [facility] [place] [address] * (ABNORMAL) Urinalysis, microscopic only (05/04/2023 2:14 AM DYE BOARDING MACHINE OPERATOR) WBC, ur 0-5 0 - 5 /HPF [facility] RBC, ur >50(A) 0 - 2 /HPF [facility] Mucous, ur Present(A) [facility] Hyaline casts, ur 1-5 0 - 10 /LPF [facility] Urine 05/04/2023 2:14 AM DYE BOARDING MACHINE OPERATOR 05/04/2023 2:21 AM DYE BOARDING MACHINE OPERATOR us Faustino Herrera MD LAB URINE ORDERABLES Final Result [facility] Department of [place] [address] * (ABNORMAL) Urinalysis reflex to microscopic (05/04/2023 2:14 AM DYE BOARDING MACHINE OPERATOR) Color, ur Straw Yellow [facility] Clarity, ur Clear Clear [facility] Specific gravity, ur 1.011 1.003 - 1.030 [facility] pH, urine 5.5 [facility] Comment: Interpretive Data ? Urine pH is affected by diet, medications, systemic acid-base disturbances, and renal tubular function. ??pH may affect urinary stone formation. ??For example, urine pH below 6.0 may help reduce the tendency for calcium phosphate stones and pH greater than 6.0 may reduce the tendency for uric acid stone formation. Source: [facility] [employer] Current Interpretive Data was last revised on 2017 Protein, ur ql Trace Negative [facility] Glucose, ur ql Negative Negative [facility] Ketones, ur Negative Negative [facility] Bilirubin, ur Negative Negative [facility] Blood, ur 3+(A) Negative [facility] Urobilinogen, ur <2.0 <2.0 mg/dL [facility] Nitrite, ur Negative Negative [facility] Leukocyte esterase, ur Negative Negative [facility] UA reflex comment Reflex to microscopic UA will be performed. [facility] Urine 05/04/2023 2:14 AM DYE BOARDING MACHINE OPERATOR 05/04/2023 2:21 AM DYE BOARDING MACHINE OPERATOR us Faustino Herrera MD LAB URINE ORDERABLES Final Result Performing Organization Address [facility] de Phone Number [facility] [place] [address] * eGFR (05/04/2023 1:20 AM DYE BOARDING MACHINE OPERATOR) eGFR 71 >=60 mL/min/1. 73 m2 [facility] Comment: Interpretive Data Reference Interval Normal [...] last reviewed 2021. Blood 05/04/2023 1:20 AM DYE BOARDING MACHINE OPERATOR 05/04/2023 1:42 AM DYE BOARDING MACHINE OPERATOR us Alonzo Duncan MD LAB BLOOD ORDERABLES Fin al Result Performing Organization Address [facility] Co de Phone Number [facility] [place] [address] * (ABNORMAL) Blood gas, arterial (05/04/2023 1:20 AM DYE BOARDING MACHINE OPERATOR) pH, Art 7.32(L) 7.35 - 7.45 [facility] PCO2, Arterial 42 35 - 45 mmHg [facility] PO2, Arterial 90 83 - 108 mmHg [facility] HCO3 Art (Calculated) 22 20 - 30 mmol/L [facility] BE, art -4 mmol/L [facility] Comment: Interpretive Data No Reference Range Established Current Interpretive Data was last revised on 2017 O2 Sat Art (Measured) 97(H) 90 - 95 % [facility] Blood 05/04/2023 1:20 AM DYE BOARDING MACHINE OPERATOR 05/04/2023 1:44 AM DYE BOARDING MACHINE OPERATOR Faustino Herrera MD LAB BLOOD ORDERABLES Final Result [facility] [place] [address] * Blood culture Blood (05/04/2023 1:20 AM DYE BOARDING MACHINE OPERATOR) Report Final Report: No growth [facility] Blood 05/04/2023 1:20 AM DYE BOARDING MACHINE OPERATOR 05/04/2023 1:44 AM DYE BOARDING MACHINE OPERATOR Narrative [facility] - 05/08/2023 7:01 AM DYE BOARDING MACHINE OPERATOR Collection->Peripheral 1. ?Blood cultures are incubated for [...] organism identification may be performed using the Leaguevineigene Gram-Positive Blood Culture Assay. This assay detects microbial DNA in positive blood culture broth via hybridization of target DNA to capture oligonucleotides on a microarray. This assay has been cleared by the [place] Food and Drug Administration and its performance characteristics have been verified by the [facility] Microbiology Laboratory. 5. ?For questions about this culture, contact the Microbiology Laboratory at [phone]. Interpretive data was last revised on 2019. Faustino Herrera MD LAB MICROBIOLOGY - GENERAL ORDERABLES Final Result [facility] [place] [address] * Blood culture Blood (05/04/2023 1:20 AM DYE BOARDING MACHINE OPERATOR) Report Final Report: No growth [facility] Blood 05/04/2023 1:20 AM DYE BOARDING MACHINE OPERATOR 05/04/2023 1:44 AM DYE BOARDING MACHINE OPERATOR Narrative [facility] - 05/08/2023 7:01 AM DYE BOARDING MACHINE OPERATOR Collection->Peripheral 1. ?Blood cultures are incubated for [...] organism identification may be performed using the Verigene Gram-Positive Blood Culture Assay. This assay detects microbial DNA in positive blood culture broth via hybridization of target DNA to capture oligonucleotides on a microarray. This assay has been cleared by the [place] Food and Drug Administration and its performance characteristics have been verified by the [facility] Microbiology Laboratory. 5. ?For questions about this culture, contact the Microbiology Laboratory at [phone]. Interpretive data was last revised on 2019. Faustino Herrera MD LAB MICROBIOLOGY - GENERAL ORDERABLES Final Result Performing Organization Address [facility] [place] [address] * Phosphorus (05/04/2023 1:20 AM DYE BOARDING MACHINE OPERATOR) [facility] Phosphorus, pl 2.8 2.3 - 4.5 mg/dL [facility] Comment:Hemolyzed; result ma y be falsely elevated Blood 05/04/2023 1:20 AM DYE BOARDING MACHINE OPERATOR 05/04/2023 1:42 AM DYE BOARDING MACHINE OPERATOR Faustino Herrera MD LAB BLOOD ORDERABLES Final Result Performing Organization Address [facility] [place] [address] * Magnesium (05/04/2023 1:20 AM DYE BOARDING MACHINE OPERATOR) [facility] Magnesium 2.0 1.4 - 2.5 mg/dL [facility] Blood 05/04/2023 1:20 AM DYE BOARDING MACHINE OPERATOR 05/04/2023 1:42 AM DYE BOARDING MACHINE OPERATOR Faustino Herrera MD LAB BLOOD ORDERABLES Final Result Performing Organization Address [facility] de Phone Number [facility] [place] [address] * (ABNORMAL) Basic metabolic panel (05/04/2023 1:20 AM DYE BOARDING MACHINE OPERATOR) Pathologist [facility] Sodium 140 135 - 145 mmol/L [facility] Potassium, pl See Comment 3.3 - 4.9 mmol/L [facility] Comment:Credited; Hemolyzed Specimen Chloride 109 97 - 110 mmol/L [facility] CO2 23 22 - 32 mmol/L [facility] Anion gap 8 2 - 15 mmol/L [facility] BUN 9 6 - 25 mg/dL [facility] Creatinine 1.38(H) 0.80 - 1.30 mg/dL [facility] Glucose 92 70 - 199 mg/dL [facility] Comment: Interpretive Data Fasting glucose >/= [...] 2022. Calcium 7.3(L) 8.5 - 10.3 mg/dL [facility] Blood 05/04/2023 1:20 AM DYE BOARDING MACHINE OPERATOR 05/04/2023 1:42 AM DYE BOARDING MACHINE OPERATOR Faustino Herrera MD LAB BLOOD ORDERABLES Final Result [facility] [place] [address] * (ABNORMAL) CBC without differential (05/04/2023 1:20 AM DYE BOARDING MACHINE OPERATOR) [facility] WBC 13.5(H) 3.8 - 9.9 K/cumm [facility] Hgb 9.1(L) 13.0 - 17.5 g/dL [facility] Comment: Interpretive Data A reference range for this assay has not been established for patients with an unknown legal sex. Please refer to the laboratory test catalog for established sex-specific reference intervals. Current interpretive data was last revised on 2023. Hct 25.2(L) 38.9 - 50.3 % [facility] Comment: Interpretive Data A reference range for this assay has not been established for patients with an unknown legal sex. Please refer to the laboratory test catalog for established sex-specific reference intervals. Current interpretive data was last revised on 2023. Plt 115(L) 150 - 400 K/cumm [facility] MPV 10.6 9.1 - 12.3 fL [facility] RBC 2.89(L) 4.30 - 5.80 M/cumm [facility] Comment: Interpretive Data A reference range for this assay has not been established for patients with an unknown legal sex. Please refer to the laboratory test catalog for established sex-specific reference intervals. Current interpretive data was last revised on 2023. MCV 87.2 81.3 - 96.4 fL [facility] MCH 31.5 27.1 - 33.3 pg [facility] MCHC 36.1(H) 32.3 - 35.7 g/dL [facility] RDW CV 12.5 11.1 - 14.9 % [facility] RDW SD 40.1 35.7 - 48.1 fL [facility] NRBC abs 0.11(H) 0.00 - 0.01 K/cumm [facility] Blood 05/04/2023 1:20 AM DYE BOARDING MACHINE OPERATOR 05/04/2023 1:42 AM DYE BOARDING MACHINE OPERATOR Faustino Herrera MD LAB BLOOD ORDERABLES Final Result [facility] [place] [address] * (ABNORMAL) Triglycerides (05/04/2023 1:20 AM DYE BOARDING MACHINE OPERATOR) Triglycerides 895(H) <=149 mg/dL [facility] Comment: Hemolyzed; result may be falsely [...] revised on 2018. Blood 05/04/2023 1:20 AM DYE BOARDING MACHINE OPERATOR 05/04/2023 1:42 AM DYE BOARDING MACHINE OPERATOR us Nando Mijares MD LAB BLOOD ORDERABLES [place] jose f Result - Final [facility] [place] [address] * XR Chest 1 View (05/03/2023 10:05 PM DYE BOARDING MACHINE OPERATOR) Anatomical Region Laterality Modality Body, Chest N/A Digital Radiogra phy 05/04/2023 7:57 AM DYE BOARDING MACHINE OPERATOR Impressions 05/04/2023 7:57 AM DYE BOARDING MACHINE OPERATOR Comparison to 05/03/2023. There is an endotracheal tube with tip approximately 4.1 cm superior to the sommer. ??Gastric tube extends inferior to the [id number] the study, below the GE junction. ??Right [...] Chung Boone M.D. Narrative 05/04/2023 7:57 AM DYE BOARDING MACHINE OPERATOR EXAMINATION: 1 view chest radiograph Procedure Note Chung Boone MD - 05/04/2023 EXAMINATION: 1 view chest radiograph IMPRESSION: Comparison to 05/03/2023. There is an endotracheal tube with tip approximately 4.1 cm superior to the sommer. Gastric tube extends inferior to the [id number]-[id number] the study, below the GE junction. Right [...] IMG XR PROCEDURES Fin al Result * FL INSJ NON-TUNNELED CENTRAL VENOUS CATH AGE 5 YR/> (05/03/2023 9:57 PM DYE BOARDING MACHINE OPERATOR) Narrative Carline Jerome MD - 05/03/2023 9:57 PM DYE BOARDING MACHINE OPERATOR Thea Rizzo MD ? 05/03/2023 ??9:59 PM Central Line Insertion Date/Time: 05/03/2023 9:57 PM Performed by: Thea Rizzo MD Authorized by: Thea Rizzo MD ?? Sheridan Protocol: RN Notified of Procedure: yes ?? 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 uniforms/guardian agrees and accepts Patient's stated name/ matches [...] (ABNORMAL) Blood gas, arterial (05/03/2023 8:32 PM DYE BOARDING MACHINE OPERATOR) pH, Art 7.37 7.35 - 7.45 [facility] PCO2, Arterial 37 35 - 45 mmHg [facility] PO2, Arterial 126(H) 83 - 108 mmHg [facility] HCO3 Art (Calculated) 22 20 - 30 mmol/L [facility] BE, art -3 mmol/L [facility] Comment: Interpretive Data No Reference Range Established Current Interpretive Data was last revised on 2017 O2 Sat Art (Measured) 99(H) 90 - 95 % [facility] Blood 05/03/2023 8:32 PM DYE BOARDING MACHINE OPERATOR 05/03/2023 8:55 PM DYE BOARDING MACHINE OPERATOR us Faustino Herrera MD LAB BLOOD ORDERABLES Final Result [facility] [place] [address] * Potassium, whole blood (05/03/2023 5:50 PM DYE BOARDING MACHINE OPERATOR) Potassium, bld 3.6 3.3 - 4.9 mmol/L [facility] Blood 05/03/2023 5:50 PM DYE BOARDING MACHINE OPERATOR 05/03/2023 5:57 PM DYE BOARDING MACHINE OPERATOR Anderson Tolentino Jr., TREE LAB BLOOD ORDERABLE S Final Result Performing Organization Address [facility] Co de Phone Number [facility] [place] [address] * (ABNORMAL) Blood gas, arterial (05/03/2023 5:50 PM DYE BOARDING MACHINE OPERATOR) pH, Art 7.38 7.35 - 7.45 [facility] PCO2, Arterial 36 35 - 45 mmHg [facility] PO2, Arterial 125(H) 83 - 108 mmHg [facility] HCO3 Art (Calculated) 22 20 - 30 mmol/L [facility] BE, art -4 mmol/L [facility] Comment: Interpretive Data No Reference Range Established Current Interpretive Data was last revised on 2017 O2 Sat Art (Measured) 99(H) 90 - 95 % [facility] Blood 05/03/2023 5:50 PM DYE BOARDING MACHINE OPERATOR 05/03/2023 5:57 PM DYE BOARDING MACHINE OPERATOR Faustino Herrera MD LAB BLOOD ORDERABLES Final Result Performing Organization Address [facility] Co de Phone Number [facility] [place] [address] * XR Chest 1 View (05/03/2023 2:54 PM DYE BOARDING MACHINE OPERATOR) Anatomical Region Laterality Modality Body, Chest N/A Computed Radiogr aphy 05/03/2023 4:08 PM DYE BOARDING MACHINE OPERATOR Impressions 05/03/2023 4:09 PM DYE BOARDING MACHINE OPERATOR Comparison is made to chest radiograph 05/02/2023 [...] Aaron Schafer M.D. Narrative 05/03/2023 4:09 PM DYE BOARDING MACHINE OPERATOR EXAMINATION: 1 view chest radiograph Procedure Note [...] sult * Critical Care (05/03/2023 2:29 PM DYE BOARDING MACHINE OPERATOR) Narrative Carline Jerome MD - 05/03/2023 2:29 PM DYE BOARDING MACHINE OPERATOR Carline Jerome MD ? 05/03/2023 ??2:30 PM [...] plan with the ICU team and other medical/business solutions consultant staff, making frequent assessments and decisions [...] and Chemistries, Arterial - (05/03/2023 2:09 PM DYE BOARDING MACHINE OPERATOR) pH, Art POC 7.38 7.35 - 7.45 [facility] pCO2, Art POC 35 35 - 45 mmHg [facility] pO2, Art POC 59(L) 83 - 108 mmHg [facility] Na, POC 137 135 - 145 mmol/L [facility] K POC 3.4 3.3 - 4.9 mmol/L [facility] Comment: Interpretive Data This method is not able to assess for hemolysis, which may falsely increase potassium concentrations. If further testing is needed to evaluate this result, consider in-laboratory plasma potassium. Current Interpretive Data was last revised on 2022. Cl, POC 113(H) 97 - 110 mmol/L [facility] Ionized Ca, POC 4.32(L) 4.50 - 5.10 mg/dL [facility] Glucose, POC 106 70 - 199 mg/dL [facility] Lactate, POC 0.7 0.7 - 2.2 mmol/L [facility] SO2 (natalia) arterial 92 90 - 95 % [facility] Base excess, POC -3.9 mmol/L [facility] HCO3, Art POC 21 20 - 30 mmol/L [facility] Hct, POC 28.0(L) 41.4 - 51.6 % [facility] O2 Sat, Art POC (Calc) 90 % [facility] Total Hb, POC 9.4(L) 13.8 - 17.2 g/dL [facility] Blood 05/03/2023 2:09 PM DYE BOARDING MACHINE OPERATOR 05/03/2023 2:09 PM DYE BOARDING MACHINE OPERATOR us Faustino Herrera MD LAB POCT ORDERABLES - ROSIE CE Final Result [facility] [place] [address] * Triglycerides (05/03/2023 1:12 PM DYE BOARDING MACHINE OPERATOR) Triglycerides See Comment <=149 mg/dL [facility] Comment: Credited; Hemolyzed Specimen Interpretive Data [...] revised on 2018. Blood 05/03/2023 1:12 PM DYE BOARDING MACHINE OPERATOR 05/03/2023 1:31 PM DYE BOARDING MACHINE OPERATOR us Alonzo Duncan MD LAB BLOOD ORDERABLES Fin al Result [facility] [place] [address] * (ABNORMAL) POC Blood Gas and Chemistries, Arterial - (05/03/2023 11:07 AM DYE BOARDING MACHINE OPERATOR) pH, Art POC 7.34(L) 7.35 - 7.45 [facility] pCO2, Art POC 35 35 - 45 mmHg [facility] pO2, Art POC 61(L) 83 - 108 mmHg [facility] Na, POC 137 135 - 145 mmol/L [facility] K POC 3.8 3.3 - 4.9 mmol/L [facility] Comment: Interpretive Data This method is not able to assess for hemolysis, which may falsely increase potassium concentrations. If further testing is needed to evaluate this result, consider in-laboratory plasma potassium. Current Interpretive Data was last revised on 2022. Cl, POC 110 97 - 110 mmol/L [facility] Ionized Ca, POC 4.73 4.50 - 5.10 mg/dL [facility] Glucose, POC 115 70 - 199 mg/dL [facility] Lactate, POC 0.9 0.7 - 2.2 mmol/L [facility] SO2 (natalia) arterial 93 90 - 95 % [facility] Base excess, POC -6.2 mmol/L [facility] HCO3, Art POC 19(L) 20 - 30 mmol/L [facility] Hct, POC 29.0(L) 41.4 - 51.6 % [facility] O2 Sat, Art POC (Calc) 89 % [facility] Total Hb, POC 9.7(L) 13.8 - 17.2 g/dL [facility] Blood 05/03/2023 11:0 7 AM DYE BOARDING MACHINE OPERATOR 05/03/2023 11:07 AM DYE BOARDING MACHINE OPERATOR us Faustino Herrera MD LAB POCT ORDERABLES - ROSIE CE Final Result [facility] [place] [address] * (ABNORMAL) POC Blood Gas and Chemistries, Arterial - (05/03/2023 3:28 AM DYE BOARDING MACHINE OPERATOR) pH, Art POC 7.34(L) 7.35 - 7.45 [facility] pCO2, Art POC 28(L) 35 - 45 mmHg [facility] pO2, Art POC 81(L) 83 - 108 mmHg [facility] Na, POC 135 135 - 145 mmol/L [facility] K POC 4.2 3.3 - 4.9 mmol/L [facility] Comment: Interpretive Data This method is not able to assess for hemolysis, which may falsely increase potassium concentrations. If further testing is needed to evaluate this result, consider in-laboratory plasma potassium. Current Interpretive Data was last revised on 2022. Cl, POC 109 97 - 110 mmol/L [facility] Ionized Ca, POC 5.30(H) 4.50 - 5.10 mg/dL [facility] Glucose, POC 124 70 - 199 mg/dL [facility] Lactate, POC 1.0 0.7 - 2.2 mmol/L [facility] SO2 (natalia) arterial 98(H) 90 - 95 % [facility] Base excess, POC -9.4 mmol/L [facility] HCO3, Art POC 15(L) 20 - 30 mmol/L [facility] Hct, POC 32.0(L) 41.4 - 51.6 % [facility] O2 Sat, Art POC (Calc) 95 % [facility] Total Hb, POC 10.6(L) 13.8 - 17.2 g/dL [facility] Blood 05/03/2023 3:28 AM DYE BOARDING MACHINE OPERATOR 05/03/2023 3:28 AM DYE BOARDING MACHINE OPERATOR Alonzo Duncan MD LAB POCT ORDERABLES - DE VICE Final Result Performing Organization Address [facility]/ZIP Co de Phone Number [facility] [place] [place] [address] * Lactate (05/03/2023 2:08 AM DYE BOARDING MACHINE OPERATOR) [facility] Lactate 1.2 0.7 - 2.0 mmol/L [facility] Blood 05/03/2023 2:08 AM DYE BOARDING MACHINE OPERATOR 05/03/2023 2:49 AM DYE BOARDING MACHINE OPERATOR Alonzo Duncan MD LAB BLOOD ORDERABLES Fin al Result [facility] [place] [address] * (ABNORMAL) Blood gas, arterial (05/03/2023 2:08 AM DYE BOARDING MACHINE OPERATOR) pH, Art 7.34(L) 7.35 - 7.45 [facility] PCO2, Arterial 32(L) 35 - 45 mmHg [facility] PO2, Arterial 120(H) 83 - 108 mmHg [facility] HCO3 Art (Calculated) 18(L) 20 - 30 mmol/L [facility] BE, art -8 mmol/L [facility] Comment: Interpretive Data No Reference Range Established Current Interpretive Data was last revised on 2017 O2 Sat Art (Measured) 99(H) 90 - 95 % [facility] Blood 05/03/2023 2:08 AM DYE BOARDING MACHINE OPERATOR 05/03/2023 2:21 AM DYE BOARDING MACHINE OPERATOR Alonzo Duncan MD LAB BLOOD ORDERABLES Fin al Result Performing Organization Address City/[facility]/ZIP Co de Phone Number [facility] [place] [address] * TSH reflex to free T4 (05/03/2023 12:10 AM DYE BOARDING MACHINE OPERATOR) TSH 1.52 0.30 - 4.20 mcIUnit/mL [facility] Blood 05/03/2023 12:1 0 AM DYE BOARDING MACHINE OPERATOR 05/03/2023 12:27 AM DYE BOARDING MACHINE OPERATOR Faustino Herrera MD LAB BLOOD ORDERABLES Final Result Performing Organization Address [facility] de Phone Number [facility] [place] [address] * eGFR (05/03/2023 12:10 AM DYE BOARDING MACHINE OPERATOR) eGFR 78 >=60 mL/min/1. 73 m2 [facility] Comment: Interpretive Data Reference Interval Normal [...] reviewed 2021. Blood 05/03/2023 12:1 0 AM DYE BOARDING MACHINE OPERATOR 05/03/2023 12:27 AM DYE BOARDING MACHINE OPERATOR us Anderson Tolentino Jr., TREE LAB BLOOD ORDERABLE S Final Result Performing Organization Address [facility] Co de Phone Number [facility] [place] [address] * Fibrinogen (05/03/2023 12:10 AM DYE BOARDING MACHINE OPERATOR) [facility] Fibrinogen 274 170 - 400 mg/dL [facility] Blood 05/03/2023 12:1 0 AM DYE BOARDING MACHINE OPERATOR 05/03/2023 1:52 AM DYE BOARDING MACHINE OPERATOR us Nicole Pearce MD LAB BLOOD ORDERABLES Final Res ult Performing Organization Address [facility] Co de Phone Number [facility] [place] [address] * (ABNORMAL) Blood gas, arterial (05/03/2023 12:10 AM DYE BOARDING MACHINE OPERATOR) pH, Art 7.35 7.35 - 7.45 [facility] PCO2, Arterial 32(L) 35 - 45 mmHg [facility] PO2, Arterial 110(H) 83 - 108 mmHg [facility] HCO3 Art (Calculated) 18(L) 20 - 30 mmol/L [facility] BE, art -7 mmol/L [facility] Comment: Interpretive Data No Reference Range Established Current Interpretive Data was last revised on 2017 O2 Sat Art (Measured) 98(H) 90 - 95 % [facility] Blood 05/03/2023 12:1 0 AM DYE BOARDING MACHINE OPERATOR 05/03/2023 12:23 AM DYE BOARDING MACHINE OPERATOR us Anderson Tolentino Jr., TREE LAB BLOOD ORDERABLE S Final Result Performing Organization Address [facility] [place] [address] * Lactate (05/03/2023 12:10 AM DYE BOARDING MACHINE OPERATOR) Lactate 1.0 0.7 - 2.0 mmol/L [facility] Blood 05/03/2023 12:1 0 AM DYE BOARDING MACHINE OPERATOR 05/03/2023 12:27 AM DYE BOARDING MACHINE OPERATOR Result [facility] Anderson Tolentino Jr., NP LAB BLOOD ORDERABLE S Final Result Performing Organization Address [facility] de Phone Number [facility] [place] [place] [address] * (ABNORMAL) Phosphorus (05/03/2023 12:10 AM DYE BOARDING MACHINE OPERATOR) Phosphorus, pl 2.1(L) 2.3 - 4.5 mg/dL [facility] Comment:Hemolyzed; result ma y be falsely elevated Blood 05/03/2023 12:1 0 AM DYE BOARDING MACHINE OPERATOR 05/03/2023 12:27 AM DYE BOARDING MACHINE OPERATOR us Anderson Tolentino Jr., NP LAB BLOOD ORDERABLE S Final Result Performing Organization Address [facility] Co de Phone Number [facility] [place] [address] * Magnesium (05/03/2023 12:10 AM DYE BOARDING MACHINE OPERATOR) Magnesium 1.9 1.4 - 2.5 mg/dL [facility] Blood 05/03/2023 12:1 0 AM DYE BOARDING MACHINE OPERATOR 05/03/2023 12:27 AM DYE BOARDING MACHINE OPERATOR Anderson Tolentino Jr., NP LAB BLOOD ORDERABLE S Final Result [facility] [place] [address] * (ABNORMAL) Basic metabolic panel (05/03/2023 12:10 AM DYE BOARDING MACHINE OPERATOR) Pathologist [facility] Sodium 134(L) 135 - 145 mmol/L [facility] Potassium, pl See Comment 3.3 - 4.9 mmol/L [facility] Comment:Credited; Hemolyzed Specimen Chloride 106 97 - 110 mmol/L [facility] CO2 18(L) 22 - 32 mmol/L [facility] Anion gap 10 2 - 15 mmol/L [facility] BUN 16 6 - 25 mg/dL [facility] Creatinine 1.27 0.80 - 1.30 mg/dL [facility] Glucose 118 70 - 199 mg/dL [facility] Comment: Interpretive Data Fasting glucose >/= [...] 2022. Calcium 7.7(L) 8.5 - 10.3 mg/dL [facility] Blood 05/03/2023 12:1 0 AM DYE BOARDING MACHINE OPERATOR 05/03/2023 12:27 AM DYE BOARDING MACHINE OPERATOR us Anderson Tolentino Jr., TREE LAB BLOOD ORDERABLE S Final Result [facility] [place] [address] * (ABNORMAL) CBC without differential (05/03/2023 12:10 AM DYE BOARDING MACHINE OPERATOR) WBC 14.6(H) 3.8 - 9.9 K/cumm [facility] Hgb 10.7(L) 13.0 - 17.5 g/dL [facility] Comment: Interpretive Data A reference range for this assay has not been established for patients with an unknown legal sex. Please refer to the laboratory test catalog for established sex-specific reference intervals. Current interpretive data was last revised on 2023. Hct 29.7(L) 38.9 - 50.3 % [facility] Comment: Interpretive Data A reference range for this assay has not been established for patients with an unknown legal sex. Please refer to the laboratory test catalog for established sex-specific reference intervals. Current interpretive data was last revised on 2023. Plt 121(L) 150 - 400 K/cumm [facility] MPV 10.6 9.1 - 12.3 fL [facility] RBC 3.38(L) 4.30 - 5.80 M/cumm [facility] Comment: Interpretive Data A reference range for this assay has not been established for patients with an unknown legal sex. Please refer to the laboratory test catalog for established sex-specific reference intervals. Current interpretive data was last revised on 2023. MCV 87.9 81.3 - 96.4 fL [facility] MCH 31.7 27.1 - 33.3 pg [facility] MCHC 36.0(H) 32.3 - 35.7 g/dL [facility] RDW CV 12.4 11.1 - 14.9 % [facility] RDW SD 39.9 35.7 - 48.1 fL [facility] NRBC abs 0.00 0.00 - 0.01 K/cumm [facility] Blood 05/03/2023 12:1 0 AM DYE BOARDING MACHINE OPERATOR 05/03/2023 12:28 AM DYE BOARDING MACHINE OPERATOR us Anderson Tolentino Jr., NP LAB BLOOD ORDERABLE S Final Result [facility] [place] [address] * (ABNORMAL) POC Blood Gas and Chemistries, Arterial - (05/02/2023 11:16 PM DYE BOARDING MACHINE OPERATOR) Pathologist [facility] pH, Art POC 7.34(L) 7.35 - 7.45 [facility] pCO2, Art POC 32(L) 35 - 45 mmHg [facility] pO2, Art POC 70(L) 83 - 108 mmHg [facility] Na, POC 135 135 - 145 mmol/L [facility] K POC 4.1 3.3 - 4.9 mmol/L [facility] Comment: Interpretive Data This method is not able to assess for hemolysis, which may falsely increase potassium concentrations. If further testing is needed to evaluate this result, consider in-laboratory plasma potassium. Current Interpretive Data was last revised on 2022. Cl, POC 110 97 - 110 mmol/L [facility] Ionized Ca, POC 4.68 4.50 - 5.10 mg/dL [facility] Glucose, POC 117 70 - 199 mg/dL [facility] Lactate, POC 0.9 0.7 - 2.2 mmol/L [facility] SO2 (natalia) arterial 96(H) 90 - 95 % [facility] Base excess, POC -7.6 mmol/L [facility] HCO3, Art POC 17(L) 20 - 30 mmol/L [facility] Hct, POC 31.0(L) 41.4 - 51.6 % [facility] O2 Sat, Art POC (Calc) 93 % [facility] Total Hb, POC 10.4(L) 13.8 - 17.2 g/dL [facility] Blood 05/02/2023 11:1 6 PM DYE BOARDING MACHINE OPERATOR 05/02/2023 11:16 PM DYE BOARDING MACHINE OPERATOR us Alonzo Ducnan MD LAB POCT ORDERABLES - DE VICE Final Result [facility] [place] [address] * XR Chest 1 View (05/02/2023 10:54 PM DYE BOARDING MACHINE OPERATOR) Anatomical Region Laterality Modality Body, Chest N/A Computed Radiogr aphy 05/03/2023 9:04 AM DYE BOARDING MACHINE OPERATOR Impressions 05/03/2023 3:17 PM DYE BOARDING MACHINE OPERATOR The current study is compared with the [...] Roldan Harrison M.D. Narrative 05/03/2023 3:17 PM DYE BOARDING MACHINE OPERATOR EXAMINATION: 1 view chest radiograph Procedure Note [...] agrees with it. Electronically signed by: Roldan Deandre Christy, M.D. us Anderson Tolentino Jr., STATISTICIAN THEORETICAL IMG XR PROCEDURES F inal Result * (ABNORMAL) POC Blood Gas and Chemistries, Arterial - (05/02/2023 10:13 PM DYE BOARDING MACHINE OPERATOR) pH, Art POC 7.29(L) 7.35 - 7.45 [facility] pCO2, Art POC 35 35 - 45 mmHg [facility] pO2, Art POC 68(L) 83 - 108 mmHg [facility] Na, POC 136 135 - 145 mmol/L [facility] K POC 3.9 3.3 - 4.9 mmol/L [facility] Comment: Interpretive Data This method is not able to assess for hemolysis, which may falsely increase potassium concentrations. If further testing is needed to evaluate this result, consider in-laboratory plasma potassium. Current Interpretive Data was last revised on 2022. Cl, POC 111(H) 97 - 110 mmol/L [facility] Ionized Ca, POC 4.56 4.50 - 5.10 mg/dL [facility] Glucose, POC 105 70 - 199 mg/dL [facility] Lactate, POC 1.1 0.7 - 2.2 mmol/L [facility] SO2 (natalia) arterial 95 90 - 95 % [facility] Base excess, POC -9.0 mmol/L [facility] HCO3, Art POC 17(L) 20 - 30 mmol/L [facility] Hct, POC 29.0(L) 41.4 - 51.6 % [facility] O2 Sat, Art POC (Calc) 91 % [facility] Total Hb, POC 9.8(L) 13.8 - 17.2 g/dL [facility] Blood 05/02/2023 10:1 3 PM DYE BOARDING MACHINE OPERATOR 05/02/2023 10:13 PM DYE BOARDING MACHINE OPERATOR us Alonzo Duncan MD LAB POCT ORDERABLES - DE VICE Final Result [facility] [place] [address] * eGFR (05/02/2023 9:55 PM DYE BOARDING MACHINE OPERATOR) eGFR 72 >=60 mL/min/1. 73 m2 [facility] Comment: Interpretive Data Reference Interval [...] last reviewed 2021. Blood 05/02/2023 9:55 PM DYE BOARDING MACHINE OPERATOR 05/02/2023 10:39 PM DYE BOARDING MACHINE OPERATOR us Anderson Tolentino Jr., TREE LAB BLOOD ORDERABLE S Final Result [facility] Department [place] [address] * Calcium, ionized (05/02/2023 9:55 PM DYE BOARDING MACHINE OPERATOR) Calcium, Ionized 4.61 4.50 - 5.10 mg/dL [facility] Blood 05/02/2023 9:55 PM DYE BOARDING MACHINE OPERATOR 05/02/2023 10:17 PM DYE BOARDING MACHINE OPERATOR Anderson Tolentino Jr., STATISTICIAN THEORETICAL LAB BLOOD ORDERABLE S Final Result Performing Organization Address City/[facility]/ZIP Co de Phone Number [facility] One [facility] [place] [address] * Magnesium (05/02/2023 9:55 PM DYE BOARDING MACHINE OPERATOR) Pathologist [facility] Magnesium 1.8 1.4 - 2.5 mg/dL [facility] Blood 05/02/2023 9:55 PM DYE BOARDING MACHINE OPERATOR 05/02/2023 10:17 PM DYE BOARDING MACHINE OPERATOR Anderson Tolentino Jr., STATISTICIAN THEORETICAL LAB BLOOD ORDERABLE S Final Result Performing Organization Address [facility] de Phone Number [facility] [place] [address] * (ABNORMAL) Basic metabolic panel (05/02/2023 9:55 PM DYE BOARDING MACHINE OPERATOR) [facility] Sodium 136 135 - 145 mmol/L [facility] Potassium, pl 4.5 3.3 - 4.9 mmol/L [facility] Comment:Hemolyzed; Potassium value may be falsely elevated by as much as 0.6-1.0 mmol/L. Suggest redraw and reanalysis. Chloride 107 97 - 110 mmol/L [facility] CO2 20(L) 22 - 32 mmol/L [facility] Anion gap 9 2 - 15 mmol/L [facility] BUN 15 6 - 25 mg/dL [facility] Creatinine 1.36(H) 0.80 - 1.30 mg/dL [facility] Glucose 105 70 - 199 mg/dL [facility] Comment: Interpretive Data Fasting glucose >/= [...] 2022. Calcium 7.6(L) 8.5 - 10.3 mg/dL [facility] Blood 05/02/2023 9:55 PM DYE BOARDING MACHINE OPERATOR 05/02/2023 10:17 PM DYE BOARDING MACHINE OPERATOR Anderson Tolentino Jr., TREE LAB BLOOD ORDERABLE S Final Result Performing Organization Address [facility]/ZIP Co de Phone Number [facility] [place] [address] * Phosphorus (05/02/2023 9:55 PM DYE BOARDING MACHINE OPERATOR) Phosphorus, pl 3.5 2.3 - 4.5 mg/dL [facility] Blood 05/02/2023 9:55 PM DYE BOARDING MACHINE OPERATOR 05/02/2023 10:17 PM DYE BOARDING MACHINE OPERATOR Anderson Tolentino Jr., TREE LAB BLOOD ORDERABLE S Final Result Performing Organization Address [facility] de Phone Number [facility] [place] [address] * (ABNORMAL) CBC without differential (05/02/2023 9:33 PM DYE BOARDING MACHINE OPERATOR) Pathologist [facility] WBC 12.4(H) 3.8 - 9.9 K/cumm [facility] Hgb 9.9(L) 13.0 - 17.5 g/dL [facility] Comment: Interpretive Data A reference range for this assay has not been established for patients with an unknown legal sex. Please refer to the laboratory test catalog for established sex-specific reference intervals. Current interpretive data was last revised on 2023. Hct 28.8(L) 38.9 - 50.3 % [facility] Comment: Interpretive Data A reference range for this assay has not been established for patients with an unknown legal sex. Please refer to the laboratory test catalog for established sex-specific reference intervals. Current interpretive data was last revised on 2023. Plt 105(L) 150 - 400 K/cumm [facility] MPV 10.1 9.1 - 12.3 fL [facility] RBC 3.18(L) 4.30 - 5.80 M/cumm [facility] Comment: Interpretive Data A reference range for this assay has not been established for patients with an unknown legal sex. Please refer to the laboratory test catalog for established sex-specific reference intervals. Current interpretive data was last revised on 2023. MCV 90.6 81.3 - 96.4 fL [facility] MCH 31.1 27.1 - 33.3 pg [facility] MCHC 34.4 32.3 - 35.7 g/dL [facility] RDW CV 12.4 11.1 - 14.9 % [facility] RDW SD 40.8 35.7 - 48.1 fL [facility] NRBC abs 0.03(H) 0.00 - 0.01 K/cumm [facility] Blood 05/02/2023 9:33 PM DYE BOARDING MACHINE OPERATOR 05/02/2023 10:23 PM DYE BOARDING MACHINE OPERATOR Anderson Tolentino Jr., TREE LAB BLOOD ORDERABLE S Final Result [facility] [place] [address] * (ABNORMAL) POC Blood Gas and Chemistries, Arterial - (05/02/2023 9:29 PM DYE BOARDING MACHINE OPERATOR) pH, Art POC 7.27(L) 7.35 - 7.45 [facility] pCO2, Art POC 41 35 - 45 mmHg [facility] pO2, Art POC 56(L) 83 - 108 mmHg [facility] Na, POC 137 135 - 145 mmol/L [facility] K POC 4.0 3.3 - 4.9 mmol/L [facility] Comment: Interpretive Data This method is not able to assess for hemolysis, which may falsely increase potassium concentrations. If further testing is needed to evaluate this result, consider in-laboratory plasma potassium. Current Interpretive Data was last revised on 2022. Cl, POC 111(H) 97 - 110 mmol/L [facility] Ionized Ca, POC 4.67 4.50 - 5.10 mg/dL [facility] Glucose, POC 101 70 - 199 mg/dL [facility] Lactate, POC 1.0 0.7 - 2.2 mmol/L [facility] SO2 (natalia) arterial 89(L) 90 - 95 % [facility] Base excess, POC -7.6 mmol/L [facility] HCO3, Art POC 19(L) 20 - 30 mmol/L [facility] Hct, POC 30.0(L) 41.4 - 51.6 % [facility] O2 Sat, Art POC (Calc) 84 % [facility] Total Hb, POC 9.9(L) 13.8 - 17.2 g/dL [facility] Blood 05/02/2023 9:29 PM DYE BOARDING MACHINE OPERATOR 05/02/2023 9:29 PM DYE BOARDING MACHINE OPERATOR Alonzo Duncan MD LAB POCT ORDERABLES - DE VICE Final Result [facility] [place] [address] * THORACIC ENDOVASCULAR REPAIR - AORTIC (05/02/2023 9:20 PM DYE BOARDING MACHINE OPERATOR) Anatomical Region Laterality Modality X-Ray Angiograph y Narrative 05/03/2023 5:06 AM DYE BOARDING MACHINE OPERATOR Please see OpNote for result. us Faustino Herrera MD SURGICAL CASE ORDERS Final Result * POCT Activated clotting time, low range (05/02/2023 7:26 PM DYE BOARDING MACHINE OPERATOR) ACT 149 123 - 168 sec [facility] POC Performer 7239 [facility] POC Device Number [id number] [facility] Blood 05/02/2023 7:26 PM DYE BOARDING MACHINE OPERATOR 05/02/2023 7:26 PM DYE BOARDING MACHINE OPERATOR us Alonzo Duncan MD LAB POCT ORDERABLES - DE VICE Final Result Performing Organization Address [facility] [place] [address] * (ABNORMAL) POCT Activated clotting time, low range (05/02/2023 7:01 PM DYE BOARDING MACHINE OPERATOR) ACT 327(H) 123 - 168 sec [facility] POC Performer 7239 [facility] POC Device Number [id number] [facility] Blood 05/02/2023 7:01 PM DYE BOARDING MACHINE OPERATOR 05/02/2023 7:01 PM DYE BOARDING MACHINE OPERATOR us Alonzo Duncan MD LAB POCT ORDERABLES - DE VICE Final Result Performing Organization Address [facility] [place] [address] * (ABNORMAL) POCT Activated clotting time, low range (05/02/2023 6:27 PM DYE BOARDING MACHINE OPERATOR) ACT 322(H) 123 - 168 sec [facility] POC Performer 7239 [facility] POC Device Number [id number] [facility] Blood 05/02/2023 6:27 PM DYE BOARDING MACHINE OPERATOR 05/02/2023 6:27 PM DYE BOARDING MACHINE OPERATOR us Alonzo Duncan MD LAB POCT ORDERABLES - DE VICE Final Result Performing Organization Address [facility] Co de Phone Number [facility] [place] [address] * (ABNORMAL) POCT Activated clotting time, low range (05/02/2023 6:02 PM DYE BOARDING MACHINE OPERATOR) ACT 331(H) 123 - 168 sec [facility] POC Performer 7218 [facility] POC Device Number [id number] [facility] Blood 05/02/2023 6:02 PM DYE BOARDING MACHINE OPERATOR 05/02/2023 6:02 PM DYE BOARDING MACHINE OPERATOR us Alonzo Duncan MD LAB POCT ORDERABLES - DE VICE Final Result [facility] [place] [address] * Critical Care (05/02/2023 5:26 PM DYE BOARDING MACHINE OPERATOR) Narrative Carline Jerome MD - 05/02/2023 5:26 PM DYE BOARDING MACHINE OPERATOR Carline Jerome MD ? 05/02/2023 ??5:29 PM [...] plan with the ICU team and other medical/business solutions consultant staff, making frequent assessments and decisions [...] Final Result * eGFR (05/02/2023 4:00 PM DYE BOARDING MACHINE OPERATOR) eGFR 84 >=60 mL/min/1. 73 m2 [facility] Comment: Interpretive Data Reference Interval [...] last reviewed 2021. Blood 05/02/2023 4:00 PM DYE BOARDING MACHINE OPERATOR 05/02/2023 4:29 PM DYE BOARDING MACHINE OPERATOR us Alonzo Duncan MD LAB BLOOD ORDERABLES Fin al Result [facility] [place] [address] * (ABNORMAL) Comprehensive metabolic panel (05/02/2023 4:00 PM DYE BOARDING MACHINE OPERATOR) Sodium 134(L) 135 - 145 mmol/L [facility] Potassium, pl See Comment 3.3 - 4.9 mmol/L [facility] Comment:Credited; Hemolyzed Specimen Chloride 103 97 - 110 mmol/L [facility] CO2 16(L) 22 - 32 mmol/L [facility] Anion gap 15 2 - 15 mmol/L [facility] BUN 15 6 - 25 mg/dL [facility] Creatinine 1.19 0.80 - 1.30 mg/dL [facility] Glucose 102 70 - 199 mg/dL [facility] Comment: Interpretive Data Fasting glucose >/= [...] 2022. Calcium 8.3(L) 8.5 - 10.3 mg/dL [facility] Bilirubin, total 0.5 0.1 - 1.2 mg/dL [facility] Protein, pl 6.5 6.5 - 8.5 g/dL [facility] Albumin 3.5 3.5 - 5.0 g/dL [facility] Alk phos 59 40 - 130 Units/L [facility] Comment:Hemolyzed; result ma y be falsely decreased ALT See Comment 7 - 55 Units/L [facility] Comment:Credited; Hemolyzed Specimen AST See Comment 10 - 50 Units/L [facility] Comment:Credited; Hemolyzed Specimen Blood 05/02/2023 4:00 PM DYE BOARDING MACHINE OPERATOR 05/02/2023 4:29 PM DYE BOARDING MACHINE OPERATOR Alonzo Duncan MD LAB BLOOD ORDERABLES Fin al Result [facility] [place] [address] * Lactate (05/02/2023 4:00 PM DYE BOARDING MACHINE OPERATOR) Pathologist [facility] Lactate 0.9 0.7 - 2.0 mmol/L [facility] Blood 05/02/2023 4:00 PM DYE BOARDING MACHINE OPERATOR 05/02/2023 4:29 PM DYE BOARDING MACHINE OPERATOR Faustino Elias MD LAB BLOOD ORDERABLES Final Result Performing Organization Address [facility] Co de Phone Number [facility] [place] [address] * (ABNORMAL) CBC without differential (05/02/2023 4:00 PM DYE BOARDING MACHINE OPERATOR) [facility] WBC 15.0(H) 3.8 - 9.9 K/cumm [facility] Hgb 10.9(L) 13.0 - 17.5 g/dL [facility] Comment: Interpretive Data A reference range for this assay has not been established for patients with an unknown legal sex. Please refer to the laboratory test catalog for established sex-specific reference intervals. Current interpretive data was last revised on 2023. Hct 30.9(L) 38.9 - 50.3 % [facility] Comment: Interpretive Data A reference range for this assay has not been established for patients with an unknown legal sex. Please refer to the laboratory test catalog for established sex-specific reference intervals. Current interpretive data was last revised on 2023. Plt 119(L) 150 - 400 K/cumm [facility] MPV 10.7 9.1 - 12.3 fL [facility] RBC 3.49(L) 4.30 - 5.80 M/cumm [facility] Comment: Interpretive Data A reference range for this assay has not been established for patients with an unknown legal sex. Please refer to the laboratory test catalog for established sex-specific reference intervals. Current interpretive data was last revised on 2023. MCV 88.5 81.3 - 96.4 fL [facility] MCH 31.2 27.1 - 33.3 pg [facility] MCHC 35.3 32.3 - 35.7 g/dL [facility] RDW CV 12.3 11.1 - 14.9 % [facility] RDW SD 39.9 35.7 - 48.1 fL [facility] NRBC abs 0.00 0.00 - 0.01 K/cumm [facility] Blood 05/02/2023 4:00 PM DYE BOARDING MACHINE OPERATOR 05/02/2023 4:29 PM DYE BOARDING MACHINE OPERATOR Faustino Elias MD LAB BLOOD ORDERABLES Final Result [facility] [place] [address] * TRANSTHORACIC ECHO (TTE) COMPLETE W DOPPLER/CF W CONTRAST (05/02/2023 12:40 PM DYE BOARDING MACHINE OPERATOR) LV EF 41 % [facility] Anatomical Region Laterality Modality Ultrasound 05/02/2023 11:3 0 AM DYE BOARDING MACHINE OPERATOR Narrative 05/02/2023 12:56 PM DYE BOARDING MACHINE OPERATOR Patient name: Eriberto Chau Date of test: 05/02/2023 Type of test: TTE w/Doppler Hospital #: 0 Date of : 1990 (M) Criminal Legal Assistant: Real Rosales RDCS Referring Physician: GLADYS GALLAGHER MD Contrast Agent: 1.1 ml Optison Administered, (1.9 ml wasted). Contrast Administered by: ICU Nurse Supervised/Interpreted by: Roldan Salcido MD Diagnosis: Location: [facility] Reason for test: chest pain MV Structure: [...] 2=Hypo 3=Akinetic 4=Dyskin./Aneurysm 0=Not visualized) Parasternal Long Willard:MAS=2 BAS=2 MIL=2 GARO=2 Parasternal Short [place]:MAS=2 MIS=2 UT=2 MIL=2 MAL=2 MA=2 Apical 4 Chambers:=2 MIS=2 BIS=2 BAL=2 MAL=2 AL=2 AC=2 Apical 2 Chambers:AI=2 UT=2 BI=2 BA=2 MA=2 AA=2 AC=2 LV Global [...] MD By signing this report, the attending wire rigger certifies that he or she has personally supervised and interpreted the echocardiogram and has reviewed and or edited and agrees with the written comments contained within the report. Procedure Note Roldan Salcido MD - 05/02/2023 Patient name: Eriberto Chau Date of test: 05/02/2023 Type of test: TTE w/Doppler Hospital #: 0 Date of : 1990 (M) Criminal Legal Assistant: Real Rosales [facility] Referring Physician: GLADYS GALLAGHER MD Contrast Agent: 1.1 ml Optison Administered, (1.9 ml wasted). Contrast Administered by: ICU Nurse Supervised/Interpreted by: Roldan Salcido MD Diagnosis: Location: [facility] Reason for test: chest pain MV Structure: [...] 2=Hypo 3=Akinetic 4=Dyskin./Aneurysm 0=Not visualized) Parasternal Long [place]:MAS=2 BAS=2 MIL=2 GARO=2 Parasternal Short [place]:MAS=2 MIS=2 UT=2 MIL=2 MAL=2 MA=2 Apical 4 Chambers:=2 MIS=2 BIS=2 BAL=2 MAL=2 AL=2 AC=2 Apical 2 Chambers:AI=2 UT=2 BI=2 BA=2 MA=2 AA=2 AC=2 LV Global [...] MD By signing this report, the attending wire rigger certifies that he or she has personally supervised and interpreted the echocardiogram and has reviewed and or edited and agrees with the written comments contained within the report. us Gladys Gallagher NP CV ECHO PROCEDURES Final Result * Prepare platelets: 4 Units (05/02/2023 10:34 AM DYE BOARDING MACHINE OPERATOR) Product code K6203Q57 Unit Number [id number] CERNER BJ Product Blood Type APOS [facility] Dispense Status PRESUMED TRANSFUSED [facility] Blood (Blood, Venous) 05/02/2023 10:34 AM DYE BOARDING MACHINE OPERATOR 05/02/2023 10:34 AM DYE BOARDING MACHINE OPERATOR Narrative [facility] - 05/06/2023 4:02 PM DYE BOARDING MACHINE OPERATOR Specify Procedure:->Surgery Are special requirements needed? (all products are leukoreduced)->No Date required:-[id number] PLT # of Units:-4-Units Reasons:-Hold for procedure (specify procedure)} us Alonzo Duncan MD BLOOD BANK PRODUCT ORDER CAROLINE Final Result [facility] [place] [address] * Prepare RBC: 4 Units (05/02/2023 10:33 AM DYE BOARDING MACHINE OPERATOR) Product code [id number] [facility] Unit Number [id number] 8-[id number] [facility] Product Blood Type APOS [facility] Dispense Status RETURNED [facility] Product code [id number] [facility] Unit Number [id number] [id number] [facility] Product Blood Type APOS C[facility]ER [facility] Dispense Status RETURNED CERNER BJ Product code [id number] [facility]ON ERWIN Unit Number [id number] 1-S JA[facility]ON ERWIN Product Blood Type APOS JA[facility]ON ERWIN Dispense Status RETURNED JA[facility]ON ERWIN Product code [id number] Unit Number [id number] 4-[id number] [facility]ON COLON Product Blood Type APOS [facility]ON COLON Dispense Status RETURNED [facility] COLON Blood 05/02/2023 10:3 3 AM DYE BOARDING MACHINE OPERATOR 05/02/2023 10:34 AM DYE BOARDING MACHINE OPERATOR Narrative [facility] COLON - 05/03/2023 6:13 AM DYE BOARDING MACHINE OPERATOR Are special requirements needed? (All products are leukoreduced and CMV- safe)- >No Date required:-[id number] LRRBC # of [id number] Reasons:-Intra-op transfusion} us Alonzo Duncan MD BLOOD BANK PRODUCT ORDER CAROLINE Final Result [facility] [place] [address] * eGFR (05/02/2023 10:12 AM DYE BOARDING MACHINE OPERATOR) eGFR 84 >=60 mL/min/1. 73 m2 [facility] Comment: [...] reviewed 2021. Blood 05/02/2023 10:1 2 AM DYE BOARDING MACHINE OPERATOR 05/02/2023 10:22 AM DYE BOARDING MACHINE OPERATOR us Alonzo Duncan MD LAB BLOOD ORDERABLES Fin al Result [facility] [place] [address] * (ABNORMAL) Comprehensive metabolic panel (05/02/2023 10:12 AM DYE BOARDING MACHINE OPERATOR) Sodium 134(L) 135 - 145 mmol/L [facility] Potassium, pl See Comment 3.3 - 4.9 mmol/L [facility] Comment:Credited; Hemolyzed Specimen Chloride 104 97 - 110 mmol/L [facility] CO2 21(L) 22 - 32 mmol/L [facility] Anion gap 9 2 - 15 mmol/L [facility] BUN 18 6 - 25 mg/dL [facility] Creatinine 1.19 0.80 - 1.30 mg/dL [facility] Glucose 104 70 - 199 mg/dL [facility] Comment: Interpretive Data Fasting glucose >/= [...] 2022. Calcium 7.9(L) 8.5 - 10.3 mg/dL [facility] Bilirubin, total 0.4 0.1 - 1.2 mg/dL [facility] Protein, pl 5.9(L) 6.5 - 8.5 g/dL [facility] Albumin 3.3(L) 3.5 - 5.0 g/dL [facility] Alk phos 63 40 - 130 Units/L [facility] Comment:Hemolyzed; result ma y be falsely decreased ALT See Comment 7 - 55 Units/L [facility] Comment:Credited, hemolyzed specimen. AST See Comment 10 - 50 Units/L [facility] Comment:Credited, hemolyzed specimen. Blood 05/02/2023 10:1 2 AM DYE BOARDING MACHINE OPERATOR 05/02/2023 10:22 AM DYE BOARDING MACHINE OPERATOR Alonzo Duncan MD LAB BLOOD ORDERABLES Fin al Result Performing Organization Address [facility] Co de Phone Number [facility] [place] [address] * Lactate (05/02/2023 10:12 AM DYE BOARDING MACHINE OPERATOR) Pathologist [facility] Lactate 0.9 0.7 - 2.0 mmol/L [facility] Blood 05/02/2023 10:1 2 AM DYE BOARDING MACHINE OPERATOR 05/02/2023 10:22 AM DYE BOARDING MACHINE OPERATOR Faustino Elisa MD LAB BLOOD ORDERABLES Final Result Performing Organization Address [facility] de Phone Number [facility] [place] [address] * (ABNORMAL) CBC without differential (05/02/2023 10:12 AM DYE BOARDING MACHINE OPERATOR) WBC 14.9(H) 3.8 - 9.9 K/cumm [facility] Hgb 10.9(L) 13.0 - 17.5 g/dL [facility] Comment: Interpretive Data A reference range for this assay has not been established for patients with an unknown legal sex. Please refer to the laboratory test catalog for established sex-specific reference intervals. Current interpretive data was last revised on 2023. Hct 31.0(L) 38.9 - 50.3 % [facility] Comment: Interpretive Data A reference range for this assay has not been established for patients with an unknown legal sex. Please refer to the laboratory test catalog for established sex-specific reference intervals. Current interpretive data was last revised on 2023. Plt 108(L) 150 - 400 K/cumm [facility] MPV 10.2 9.1 - 12.3 fL [facility] RBC 3.47(L) 4.30 - 5.80 M/cumm [facility] Comment: Interpretive Data A reference range for this assay has not been established for patients with an unknown legal sex. Please refer to the laboratory test catalog for established sex-specific reference intervals. Current interpretive data was last revised on 2023. MCV 89.3 81.3 - 96.4 fL [facility] MCH 31.4 27.1 - 33.3 pg [facility] MCHC 35.2 32.3 - 35.7 g/dL [facility] RDW CV 12.6 11.1 - 14.9 % [facility] RDW SD 41.1 35.7 - 48.1 fL [facility] NRBC abs 0.02(H) 0.00 - 0.01 K/cumm [facility] Blood 05/02/2023 10:1 2 AM DYE BOARDING MACHINE OPERATOR 05/02/2023 10:23 AM DYE BOARDING MACHINE OPERATOR Faustino Elias MD LAB BLOOD ORDERABLES Final Result [facility] [place] [address] * CTA Chest Abdominal Aorta and Bilateral Iliofemoral (05/02/2023 9:47 AM DYE BOARDING MACHINE OPERATOR) Anatomical Region Laterality Modality Body N/A Computed Tomogra phy 05/02/2023 10:3 4 AM DYE BOARDING MACHINE OPERATOR Impressions 05/02/2023 2:28 PM DYE BOARDING MACHINE OPERATOR 1. ??Interval retrograde propagation of a type [...] Timmy Castillo M.D. Narrative 05/02/2023 2:28 PM DYE BOARDING MACHINE OPERATOR EXAMINATION: ??CT ANGIOGRAPHY OF CHEST, ABDOMEN, PELVIS, [...] Result * POCT glucose (05/02/2023 4:16 AM DYE BOARDING MACHINE OPERATOR) Glucose, POC 117 70 - 199 mg/dL [facility] Blood 05/02/2023 4:16 AM DYE BOARDING MACHINE OPERATOR 05/02/2023 4:16 AM DYE BOARDING MACHINE OPERATOR Alonzo Duncan MD LAB POCT ORDERABLES - DE VICE Final Result [facility] [place] [address] * eGFR (05/02/2023 4:10 AM DYE BOARDING MACHINE OPERATOR) eGFR 83 >=60 mL/min/1. 73 m2 [facility] Comment: Interpretive Data Reference Interval Normal [...] last reviewed 2021. Blood 05/02/2023 4:10 AM DYE BOARDING MACHINE OPERATOR 05/02/2023 4:31 AM DYE BOARDING MACHINE OPERATOR us Alonzo Duncan MD LAB BLOOD ORDERABLES Fin al Result [facility] [place] [address] * (ABNORMAL) Comprehensive metabolic panel (05/02/2023 4:10 AM DYE BOARDING MACHINE OPERATOR) Sodium 138 135 - 145 mmol/L [facility] Potassium, pl See Comment 3.3 - 4.9 mmol/L [facility] Comment:Credited; Hemolyzed Specimen Chloride 107 97 - 110 mmol/L [facility] CO2 23 22 - 32 mmol/L [facility] Anion gap 8 2 - 15 mmol/L [facility] BUN 20 6 - 25 mg/dL [facility] Creatinine 1.21 0.80 - 1.30 mg/dL [facility] Glucose 122 70 - 199 mg/dL [facility] Comment: Interpretive Data Fasting glucose >/= [...] 2022. Calcium 7.8(L) 8.5 - 10.3 mg/dL [facility] Bilirubin, total 0.4 0.1 - 1.2 mg/dL [facility] Protein, pl 6.2(L) 6.5 - 8.5 g/dL [facility] Albumin 3.5 3.5 - 5.0 g/dL [facility] Alk phos 65 40 - 130 Units/L [facility] Comment:Hemolyzed; result ma y be falsely decreased ALT See Comment 7 - 55 Units/L [facility] Comment:Credited, hemolyzed specimen. AST See Comment 10 - 50 Units/L [facility] Comment:Credited, hemolyzed specimen. Blood 05/02/2023 4:10 AM DYE BOARDING MACHINE OPERATOR 05/02/2023 4:31 AM DYE BOARDING MACHINE OPERATOR Alonzo Duncan MD LAB BLOOD ORDERABLES Fin al Result Performing Organization Address [facility] Co de Phone Number [facility] [place] [address] * Lactate (05/02/2023 4:10 AM DYE BOARDING MACHINE OPERATOR) Lactate 0.9 0.7 - 2.0 mmol/L [facility] Blood 05/02/2023 4:10 AM DYE BOARDING MACHINE OPERATOR 05/02/2023 4:36 AM DYE BOARDING MACHINE OPERATOR Faustino Elias MD LAB BLOOD ORDERABLES Final Result Performing Organization Address [facility] de Phone Number [facility] [place] [address] * (ABNORMAL) CBC without differential (05/02/2023 4:10 AM DYE BOARDING MACHINE OPERATOR) Pathologist [facility] WBC 16.1(H) 3.8 - 9.9 K/cumm [facility] Hgb 11.1(L) 13.0 - 17.5 g/dL [facility] Comment: Interpretive Data A reference range for this assay has not been established for patients with an unknown legal sex. Please refer to the laboratory test catalog for established sex-specific reference intervals. Current interpretive data was last revised on 2023. Hct 32.6(L) 38.9 - 50.3 % [facility] Comment: Interpretive Data A reference range for this assay has not been established for patients with an unknown legal sex. Please refer to the laboratory test catalog for established sex-specific reference intervals. Current interpretive data was last revised on 2023. Plt 108(L) 150 - 400 K/cumm [facility] MPV 9.4 9.1 - 12.3 fL [facility] RBC 3.58(L) 4.30 - 5.80 M/cumm [facility] Comment: Interpretive Data A reference range for this assay has not been established for patients with an unknown legal sex. Please refer to the laboratory test catalog for established sex-specific reference intervals. Current interpretive data was last revised on 2023. MCV 91.1 81.3 - 96.4 fL [facility] MCH 31.0 27.1 - 33.3 pg [facility] MCHC 34.0 32.3 - 35.7 g/dL [facility] RDW CV 12.5 11.1 - 14.9 % [facility] RDW SD 41.5 35.7 - 48.1 fL [facility] NRBC abs 0.00 0.00 - 0.01 K/cumm [facility] Blood 05/02/2023 4:10 AM DYE BOARDING MACHINE OPERATOR 05/02/2023 4:36 AM DYE BOARDING MACHINE OPERATOR us Faustino Elias MD LAB BLOOD ORDERABLES Final Result Performing Organization Address [facility] de Phone Number [facility] [place] [address] * (ABNORMAL) Protime-INR (05/02/2023 4:10 AM DYE BOARDING MACHINE OPERATOR) PT 14.9(H) 10.3 - 13.7 sec [facility] INR 1.31(H) 0.90 - 1.20 [facility] Comment: Interpretive data Oral anticoagulant therapeutic ranges: Venous thromboembolism prophylaxis or treatment: 2.0-3.0 CARDIOLOGY Standard range: 2.0-3.0 High-intensity range: 2.5-3.5 Refer to indication-specific guidelines for appropriate target ranges for prosthetic heart valve replacement. Current interpretive data was last revised on 2019. Blood 05/02/2023 4:10 AM DYE BOARDING MACHINE OPERATOR 05/02/2023 4:36 AM DYE BOARDING MACHINE OPERATOR us Marvin Granados MD LAB BLOOD ORDERABLES Final Re sult Performing Organization Address [facility] Co de Phone Number [facility] [place] [address] * (ABNORMAL) Calcium, ionized (05/02/2023 4:10 AM DYE BOARDING MACHINE OPERATOR) Calcium, Ionized 4.45(L) 4.50 - 5.10 mg/dL [facility] Blood 05/02/2023 4:10 AM DYE BOARDING MACHINE OPERATOR 05/02/2023 4:31 AM DYE BOARDING MACHINE OPERATOR us Marvin Granados MD LAB BLOOD ORDERABLES Final Re sult [facility] [place] [address] * eGFR (05/01/2023 11:52 PM DYE BOARDING MACHINE OPERATOR) eGFR 79 >=60 mL/min/1. 73 m2 [facility] Comment: Interpretive Data Reference Interval Normal [...] reviewed 2021. Blood 05/01/2023 11:5 2 PM DYE BOARDING MACHINE OPERATOR 05/02/2023 12:04 AM DYE BOARDING MACHINE OPERATOR us Alonzo Duncan MD LAB BLOOD ORDERABLES Fin al Result [facility] [place] [address] * (ABNORMAL) Comprehensive metabolic panel (05/01/2023 11:52 PM DYE BOARDING MACHINE OPERATOR) Sodium 139 135 - 145 mmol/L [facility] Potassium, pl 4.0 3.3 - 4.9 mmol/L [facility] Chloride 108 97 - 110 mmol/L [facility] CO2 24 22 - 32 mmol/L [facility] Anion gap 7 2 - 15 mmol/L [facility] BUN 22 6 - 25 mg/dL [facility] Creatinine 1.25 0.80 - 1.30 mg/dL [facility] Glucose 108 70 - 199 mg/dL [facility] Comment: Interpretive Data Fasting glucose >/= [...] 2022. Calcium 7.7(L) 8.5 - 10.3 mg/dL [facility] Bilirubin, total 0.4 0.1 - 1.2 mg/dL [facility] Protein, pl 5.8(L) 6.5 - 8.5 g/dL [facility] Albumin 3.7 3.5 - 5.0 g/dL [facility] Alk phos 69 40 - 130 Units/L [facility] ALT 18 7 - 55 Units/L [facility] AST 21 10 - 50 Units/L [facility] Blood 05/01/2023 11:5 2 PM DYE BOARDING MACHINE OPERATOR 05/02/2023 12:04 AM DYE BOARDING MACHINE OPERATOR Alonzo Duncan MD LAB BLOOD ORDERABLES Fin al Result Performing Organization Address [facility] Co de Phone Number [facility] [place] [address] * Lactate (05/01/2023 11:52 PM DYE BOARDING MACHINE OPERATOR) Pathologist [facility] Lactate 0.9 0.7 - 2.0 mmol/L [facility] Blood 05/01/2023 11:5 2 PM DYE BOARDING MACHINE OPERATOR 05/02/2023 12:04 AM DYE BOARDING MACHINE OPERATOR Faustino Elias MD LAB BLOOD ORDERABLES Final Result Performing Organization Address [facility] de Phone Number [facility] [place] [address] * (ABNORMAL) CBC without differential (05/01/2023 11:52 PM DYE BOARDING MACHINE OPERATOR) Pathologist [facility] WBC 15.1(H) 3.8 - 9.9 K/cumm [facility] Hgb 10.9(L) 13.0 - 17.5 g/dL [facility] Comment: Interpretive Data A reference range for this assay has not been established for patients with an unknown legal sex. Please refer to the laboratory test catalog for established sex-specific reference intervals. Current interpretive data was last revised on 2023. Hct 31.8(L) 38.9 - 50.3 % [facility] Comment: Interpretive Data A reference range for this assay has not been established for patients with an unknown legal sex. Please refer to the laboratory test catalog for established sex-specific reference intervals. Current interpretive data was last revised on 2023. Plt 104(L) 150 - 400 K/cumm [facility] MPV 9.5 9.1 - 12.3 fL [facility] RBC 3.55(L) 4.30 - 5.80 M/cumm [facility] Comment: Interpretive Data A reference range for this assay has not been established for patients with an unknown legal sex. Please refer to the laboratory test catalog for established sex-specific reference intervals. Current interpretive data was last revised on 2023. MCV 89.6 81.3 - 96.4 fL [facility] MCH 30.7 27.1 - 33.3 pg [facility] MCHC 34.3 32.3 - 35.7 g/dL [facility] RDW CV 12.5 11.1 - 14.9 % [facility] RDW SD 41.4 35.7 - 48.1 fL [facility] NRBC abs 0.00 0.00 - 0.01 K/cumm [facility] Blood 05/01/2023 11:5 2 PM DYE BOARDING MACHINE OPERATOR 05/02/2023 12:04 AM DYE BOARDING MACHINE OPERATOR Faustino Elias MD LAB BLOOD ORDERABLES Final Result [facility] [place] [address] * (ABNORMAL) POC Blood Gas and Chemistries, Arterial - (05/01/2023 11:03 PM DYE BOARDING MACHINE OPERATOR) pH, Art POC 7.37 7.35 - 7.45 [facility] pCO2, Art POC 39 35 - 45 mmHg [facility] pO2, Art POC 102 83 - 108 mmHg [facility] Na, POC 139 135 - 145 mmol/L [facility] K POC 3.9 3.3 - 4.9 mmol/L [facility] Comment: Interpretive Data This method is not able to assess for hemolysis, which may falsely increase potassium concentrations. If further testing is needed to evaluate this result, consider in-laboratory plasma potassium. Current Interpretive Data was last revised on 2022. Cl, POC 109 97 - 110 mmol/L [facility] Ionized Ca, POC 4.51 4.50 - 5.10 mg/dL [facility] Glucose, POC 112 70 - 199 mg/dL [facility] Lactate, POC 1.0 0.7 - 2.2 mmol/L [facility] SO2 (natalia) arterial 99(H) 90 - 95 % [facility] Base excess, POC -2.5 mmol/L [facility] HCO3, Art POC 22 20 - 30 mmol/L [facility] Hct, POC 35.0(L) 41.4 - 51.6 % [facility] O2 Sat, Art POC (Calc) 98 % [facility] Total Hb, POC 11.6(L) 13.8 - 17.2 g/dL [facility] Blood 05/01/2023 11:0 3 PM DYE BOARDING MACHINE OPERATOR 05/01/2023 11:03 PM DYE BOARDING MACHINE OPERATOR Alonzo Duncan MD LAB POCT ORDERABLES - DE VICE Final Result Performing Organization Address [facility]/ZIP Co de Phone Number [facility] [place] [employer] [place] [address] * Potassium, whole blood (05/01/2023 7:28 PM DYE BOARDING MACHINE OPERATOR) Pathologist [facility] Potassium, bld 4.1 3.3 - 4.9 mmol/L [facility] Blood 05/01/2023 7:28 PM DYE BOARDING MACHINE OPERATOR 05/01/2023 7:35 PM DYE BOARDING MACHINE OPERATOR Alonzo Duncan MD LAB BLOOD ORDERABLES Fin al Result Performing Organization Address City/[facility]/ZIP Co de Phone Number [facility] [place] [employer] [place] [address] * (ABNORMAL) Hepatic function panel (05/01/2023 7:28 PM DYE BOARDING MACHINE OPERATOR) Bilirubin, total 0.4 0.1 - 1.2 mg/dL [facility] Bilirubin, direct <0.2 0.1 - 0.3 mg/dL [facility] Protein, pl 6.2(L) 6.5 - 8.5 g/dL [facility] Albumin 3.5 3.5 - 5.0 g/dL [facility] Alk phos 71 40 - 130 Units/L [facility] ALT 17 7 - 55 Units/L [facility] AST 19 10 - 50 Units/L [facility] Blood 05/01/2023 7:28 PM DYE BOARDING MACHINE OPERATOR 05/01/2023 7:43 PM DYE BOARDING MACHINE OPERATOR Alonzo Duncan MD LAB BLOOD ORDERABLES Fin al Result Performing Organization Address City/[facility]/ZIP Co de Phone Number [facility] [place] [address] * POCT glucose (05/01/2023 7:27 PM DYE BOARDING MACHINE OPERATOR) [facility] Signature Glucose, POC 125 70 - 199 mg/dL [facility] Blood 05/01/2023 7:27 PM DYE BOARDING MACHINE OPERATOR 05/01/2023 7:27 PM DYE BOARDING MACHINE OPERATOR Alonzo Duncan MD LAB POCT ORDERABLES - DE VICE Final Result Performing Organization Address [facility] Co de Phone Number [facility] [place] [address] * XR Chest 1 View (Portable) (05/01/2023 6:41 PM DYE BOARDING MACHINE OPERATOR) Anatomical Region Laterality Modality Body, Chest N/A Computed Radiogr aphy 05/02/2023 9:45 AM DYE BOARDING MACHINE OPERATOR Impressions 05/02/2023 9:47 AM DYE BOARDING MACHINE OPERATOR Comparison is made to chest radiograph 05/01/23 [...] Otoniel Avalos M.D. Narrative 05/02/2023 9:47 AM DYE BOARDING MACHINE OPERATOR EXAMINATION: 1 view chest radiograph Procedure Note [...] it. Electronically signed by: Otoniel Avalos M.D. Marvin Granados MD IMG XR PROCEDURES Final Resul t * eGFR (05/01/2023 5:50 PM DYE BOARDING MACHINE OPERATOR) eGFR 79 >=60 mL/min/1. 73 m2 [facility] Comment: Interpretive Data Reference Interval [...] last reviewed 2021. Blood 05/01/2023 5:50 PM DYE BOARDING MACHINE OPERATOR 05/01/2023 6:02 PM DYE BOARDING MACHINE OPERATOR us Alonzo Duncan MD LAB BLOOD ORDERABLES Fin al Result [facility] [place] [address] * (ABNORMAL) Comprehensive metabolic panel (05/01/2023 5:50 PM DYE BOARDING MACHINE OPERATOR) Sodium 139 135 - 145 mmol/L [facility] Potassium, pl See Comment 3.3 - 4.9 mmol/L [facility] Comment:Credited; Hemolyzed Specimen Chloride 106 97 - 110 mmol/L [facility] CO2 23 22 - 32 mmol/L [facility] Anion gap 10 2 - 15 mmol/L [facility] BUN 23 6 - 25 mg/dL [facility] Creatinine 1.26 0.80 - 1.30 mg/dL [facility] Glucose 117 70 - 199 mg/dL [facility] Comment: Interpretive Data Fasting glucose >/= [...] 2022. Calcium 7.8(L) 8.5 - 10.3 mg/dL [facility] Bilirubin, total 0.5 0.1 - 1.2 mg/dL [facility] Protein, pl 6.4(L) 6.5 - 8.5 g/dL [facility] Albumin 3.7 3.5 - 5.0 g/dL [facility] Alk phos 65 40 - 130 Units/L [facility] Comment:Hemolyzed; result ma y be falsely decreased ALT See Comment 7 - 55 Units/L [facility] Comment:Credited; Hemolyzed Specimen AST See Comment 10 - 50 Units/L [facility] Comment:Credited; Hemolyzed Specimen Blood 05/01/2023 5:50 PM DYE BOARDING MACHINE OPERATOR 05/01/2023 5:56 PM DYE BOARDING MACHINE OPERATOR Result [facility] Alonzo Duncan MD LAB BLOOD ORDERABLES Fin al Result Performing Organization Address [facility] Co de Phone Number [facility] [place] [address] * Lactate, whole blood (05/01/2023 5:10 PM DYE BOARDING MACHINE OPERATOR) Lactate, bld 1.5 0.7 - 2.0 mmol/L [facility] Blood 05/01/2023 5:10 PM DYE BOARDING MACHINE OPERATOR 05/01/2023 5:19 PM DYE BOARDING MACHINE OPERATOR Result [facility] Alonzo Duncan MD LAB BLOOD ORDERABLES Fin al Result Performing Organization Address [facility] Co de Phone Number [facility] [place] [address] * POCT glucose (05/01/2023 5:10 PM DYE BOARDING MACHINE OPERATOR) Glucose, POC 104 70 - 199 mg/dL [facility] Blood 05/01/2023 5:10 PM DYE BOARDING MACHINE OPERATOR 05/01/2023 5:10 PM DYE BOARDING MACHINE OPERATOR Alonzo Duncan MD LAB POCT ORDERABLES - DE VICE Final Result Performing Organization Address [facility] Co de Phone Number [facility] [place] [address] * (ABNORMAL) CBC without differential (05/01/2023 5:10 PM DYE BOARDING MACHINE OPERATOR) [facility] WBC 15.0(H) 3.8 - 9.9 K/cumm [facility] Hgb 11.1(L) 13.0 - 17.5 g/dL [facility] Comment: Interpretive Data A reference range for this assay has not been established for patients with an unknown legal sex. Please refer to the laboratory test catalog for established sex-specific reference intervals. Current interpretive data was last revised on 2023. Hct 32.3(L) 38.9 - 50.3 % [facility] Comment: Interpretive Data A reference range for this assay has not been established for patients with an unknown legal sex. Please refer to the laboratory test catalog for established sex-specific reference intervals. Current interpretive data was last revised on 2023. Plt 110(L) 150 - 400 K/cumm [facility] MPV 9.0(L) 9.1 - 12.3 fL [facility] RBC 3.66(L) 4.30 - 5.80 M/cumm [facility] Comment: Interpretive Data A reference range for this assay has not been established for patients with an unknown legal sex. Please refer to the laboratory test catalog for established sex-specific reference intervals. Current interpretive data was last revised on 2023. MCV 88.3 81.3 - 96.4 fL [facility] MCH 30.3 27.1 - 33.3 pg [facility] MCHC 34.4 32.3 - 35.7 g/dL [facility] RDW CV 12.6 11.1 - 14.9 % [facility] RDW SD 41.1 35.7 - 48.1 fL [facility] NRBC abs 0.00 0.00 - 0.01 K/cumm [facility] Blood 05/01/2023 5:10 PM DYE BOARDING MACHINE OPERATOR 05/01/2023 5:19 PM DYE BOARDING MACHINE OPERATOR Faustino Elias MD LAB BLOOD ORDERABLES Final Result [facility] [place] [address] * Sepsis Lactate w/ Reflex (05/01/2023 1:18 PM DYE BOARDING MACHINE OPERATOR) Sepsis Lactate 1.9 0.7 - 2.0 mmol/L [facility] Blood 05/01/2023 1:18 PM DYE BOARDING MACHINE OPERATOR 05/01/2023 1:28 PM DYE BOARDING MACHINE OPERATOR us Lisa Christiansen MD LAB BLOOD ORDERABLES Sally l Result Performing Organization Address [facility] Co de Phone Number [facility] [place] [address] * [place] CRITICAL CARE ILL/INJURED PATIENT INIT 30-74 MIN (05/01/2023 12:32 PM DYE BOARDING MACHINE OPERATOR) Narrative Kameron Wadsworth MD - 05/01/2023 12:32 PM DYE BOARDING MACHINE OPERATOR Kameron Wadsworth MD ? 05/01/2023 12:32 PM [...] with the admitting team. Kameron Wadsworth MD IN CLINIC/BEDSIDE ORDERA BLES Final Result * POCT glucose (05/01/2023 11:40 AM DYE BOARDING MACHINE OPERATOR) Pathologist [facility] Glucose, POC 118 70 - 199 mg/dL [facility] Blood 05/01/2023 11:4 0 AM DYE BOARDING MACHINE OPERATOR 05/01/2023 11:40 AM DYE BOARDING MACHINE OPERATOR Result [facility] Alonzo Duncan MD LAB POCT ORDERABLES - DE VICE Final Result Performing Organization Address [facility] Co de Phone Number [facility] [place] [employer] [place] [address] * Troponin I high-sensitivity (05/01/2023 11:40 AM DYE BOARDING MACHINE OPERATOR) [facility] Trop I hs 15 <=35 ng/L [facility] Comment: Interpretive Data For further hscTnI resources including the diagnostic algorithm and an aid in interpretation, copy and paste this link: [email or web address].testcatalog.org/[email or web address] Current Interpretive Data last revised 2019. Blood 05/01/2023 11:4 0 AM DYE BOARDING MACHINE OPERATOR 05/01/2023 11:48 AM DYE BOARDING MACHINE OPERATOR Result [facility] Marvin Granados MD LAB BLOOD ORDERABLES Final Re sult Performing Organization Address [facility]/ZIP Co de Phone Number [facility] [place] [place] [address] * (ABNORMAL) Blood gas, arterial (05/01/2023 11:40 AM DYE BOARDING MACHINE OPERATOR) [facility] pH, Art 7.31(L) 7.35 - 7.45 [facility] PCO2, Arterial 46(H) 35 - 45 mmHg [facility] PO2, Arterial 134(H) 83 - 108 mmHg [facility] HCO3 Art (Calculated) 24 20 - 30 mmol/L [facility] BE, art -3 mmol/L [facility] Comment: Interpretive Data No Reference Range Established Current Interpretive Data was last revised on 2017 O2 Sat Art (Measured) 99(H) 90 - 95 % [facility] Blood 05/01/2023 11:4 0 AM DYE BOARDING MACHINE OPERATOR 05/01/2023 11:48 AM DYE BOARDING MACHINE OPERATOR Marvin Granados MD LAB BLOOD ORDERABLES Final Re sult Performing Organization Address City/[facility]/ZIP Co de Phone Number [facility] [place] [address] * Creatine kinase (CK), total (05/01/2023 11:40 AM DYE BOARDING MACHINE OPERATOR) CK 197 40 - 300 Units/L [facility] Blood 05/01/2023 11:4 0 AM DYE BOARDING MACHINE OPERATOR 05/01/2023 11:48 AM DYE BOARDING MACHINE OPERATOR Marvin Granados MD LAB BLOOD ORDERABLES Final Re sult Performing Organization Address City/[facility] Co de Phone Number [facility] [place] [address] * eGFR (05/01/2023 10:15 AM DYE BOARDING MACHINE OPERATOR) eGFR 60 >=60 mL/min/1. 73 m2 [facility] Comment: Interpretive Data Reference Interval Normal [...] reviewed 2021. Blood 05/01/2023 10:1 5 AM DYE BOARDING MACHINE OPERATOR 05/01/2023 10:24 AM DYE BOARDING MACHINE OPERATOR Faustino Elias MD LAB BLOOD ORDERABLES Final Result Performing Organization Address City/[facility]/ZIP Co de Phone Number [facility] [place] [address] * (ABNORMAL) Lactate (05/01/2023 10:15 AM DYE BOARDING MACHINE OPERATOR) Pathologist [facility] Lactate 2.7(H) 0.7 - 2.0 mmol/L [facility] Blood 05/01/2023 10:1 5 AM DYE BOARDING MACHINE OPERATOR 05/01/2023 10:22 AM DYE BOARDING MACHINE OPERATOR Faustino Elias MD LAB BLOOD ORDERABLES Final Result [facility] [place] [address] * (ABNORMAL) Comprehensive metabolic panel (05/01/2023 10:15 AM DYE BOARDING MACHINE OPERATOR) Sodium 141 135 - 145 mmol/L [facility] Potassium, pl 4.1 3.3 - 4.9 mmol/L [facility] Chloride 105 97 - 110 mmol/L [facility] CO2 25 22 - 32 mmol/L [facility] Anion gap 11 2 - 15 mmol/L [facility] BUN 21 6 - 25 mg/dL [facility] Creatinine 1.57(H) 0.80 - 1.30 mg/dL [facility] Glucose 134 70 - 199 mg/dL [facility] Comment: Interpretive Data Fasting glucose >/= [...] 2022. Calcium 8.5 8.5 - 10.3 mg/dL [facility] Bilirubin, total 1.1 0.1 - 1.2 mg/dL [facility] Protein, pl 6.9 6.5 - 8.5 g/dL [facility] Albumin 4.1 3.5 - 5.0 g/dL [facility] Alk phos 80 40 - 130 Units/L [facility] ALT 21 7 - 55 Units/L [facility] AST 21 10 - 50 Units/L [facility] Blood 05/01/2023 10:1 5 AM DYE BOARDING MACHINE OPERATOR 05/01/2023 10:22 AM DYE BOARDING MACHINE OPERATOR Faustino Elias MD LAB BLOOD ORDERABLES Final Result [facility] [place] [address] * (ABNORMAL) CBC without differential (05/01/2023 10:15 AM DYE BOARDING MACHINE OPERATOR) Pathologist [facility] WBC 16.7(H) 3.8 - 9.9 K/cumm [facility] Hgb 12.5(L) 13.0 - 17.5 g/dL [facility] Comment: Interpretive Data A reference range for this assay has not been established for patients with an unknown legal sex. Please refer to the laboratory test catalog for established sex-specific reference intervals. Current interpretive data was last revised on 2023. Hct 37.2(L) 38.9 - 50.3 % [facility] Comment: Interpretive Data A reference range for this assay has not been established for patients with an unknown legal sex. Please refer to the laboratory test catalog for established sex-specific reference intervals. Current interpretive data was last revised on 2023. Plt 109(L) 150 - 400 K/cumm [facility] MPV 8.8(L) 9.1 - 12.3 fL [facility] RBC 4.14(L) 4.30 - 5.80 M/cumm [facility] Comment: Interpretive Data A reference range for this assay has not been established for patients with an unknown legal sex. Please refer to the laboratory test catalog for established sex-specific reference intervals. Current interpretive data was last revised on 2023. MCV 89.9 81.3 - 96.4 fL [facility] MCH 30.2 27.1 - 33.3 pg [facility] MCHC 33.6 32.3 - 35.7 g/dL [facility] RDW CV 12.5 11.1 - 14.9 % [facility] RDW SD 41.0 35.7 - 48.1 fL [facility] NRBC abs 0.00 0.00 - 0.01 K/cumm [facility] Blood 05/01/2023 10:1 5 AM DYE BOARDING MACHINE OPERATOR 05/01/2023 10:22 AM DYE BOARDING MACHINE OPERATOR us Faustino Elias MD LAB BLOOD ORDERABLES Final Result [facility] Department of Laboratories [place], [place] [id number] * (ABNORMAL) Sepsis Lactate w/ Reflex (05/01/2023 10:15 AM DYE BOARDING MACHINE OPERATOR) Sepsis Lactate 2.7(H) 0.7 - 2.0 mmol/L [facility] Blood 05/01/2023 10:1 5 AM DYE BOARDING MACHINE OPERATOR 05/01/2023 10:22 AM DYE BOARDING MACHINE OPERATOR Lisa Christiansen MD LAB BLOOD ORDERABLES Sally l Result Performing Organization Address [facility] de Phone Number [facility] [place] [address] * (ABNORMAL) Sepsis Lactate w/ Reflex (05/01/2023 8:13 AM DYE BOARDING MACHINE OPERATOR) Sepsis Lactate 2.1(H) 0.7 - 2.0 mmol/L [facility] Blood 05/01/2023 8:13 AM DYE BOARDING MACHINE OPERATOR 05/01/2023 8:25 AM DYE BOARDING MACHINE OPERATOR Lisa Christiansen MD LAB BLOOD ORDERABLES Sally l Result Performing Organization Address [facility] de Phone Number [facility] [place] [address] * Check Sample (05/01/2023 8:13 AM DYE BOARDING MACHINE OPERATOR) ABO Rh A Positive [facility] OTHER 05/01/2023 8:13 AM DYE BOARDING MACHINE OPERATOR 05/01/2023 8:29 AM DYE BOARDING MACHINE OPERATOR Kameron Wadsworth MD LAB BLOOD ORDERABLES Fin al Result Performing Organization Address [facility] [place] [address] * Type and screen (05/01/2023 7:52 AM DYE BOARDING MACHINE OPERATOR) Ellen, indirect Negative ABO Rh A Positive [facility] Blood 05/01/2023 7:52 AM DYE BOARDING MACHINE OPERATOR 05/01/2023 8:06 AM DYE BOARDING MACHINE OPERATOR Narrative [facility] - 05/01/2023 8:55 AM DYE BOARDING MACHINE OPERATOR Has the patient had Daratumumab or Isatuximab in the past 6 months?->Unknown us Faustino Elias MD LAB BLOOD BANK TEST ORDERA BLES Final Result [facility] [place] [address] * [place] CRITICAL CARE ILL/INJURED PATIENT INIT 30-74 MIN (05/01/2023 7:33 AM DYE BOARDING MACHINE OPERATOR) Narrative Nagi Landa MD - 05/01/2023 7:33 AM DYE BOARDING MACHINE OPERATOR Nagi Landa MD ? 05/01/2023 11:34 PM [...] CT Body Outside Consult (05/01/2023 6:16 AM DYE BOARDING MACHINE OPERATOR) Anatomical Region Laterality Modality Body N/A Computed Tomogra phy 05/01/2023 6:26 AM DYE BOARDING MACHINE OPERATOR Impressions 05/01/2023 8:52 AM DYE BOARDING MACHINE OPERATOR 1. ??Extension of the type B thoracic [...] images may or may not represent the [place] source data set and thus may contain changes that may lower the accuracy of this second-opinion interpretation. Dictated by: Jr Gallagher MD The radiology attending physician has personally reviewed this study, and had reviewed and/or edited this written report and agrees with it. Electronically signed by: Ruthie Malone M.D. Narrative 05/01/2023 8:52 AM DYE BOARDING MACHINE OPERATOR EXAMINATION: RADIOLOGY CONSULTATION ON OUTSIDE IMAGING STUDY STUDY INITIALLY PERFORMED: 05/01/2023 at [facility]. TYPE OF STUDY: Multiple CT images [...] IMAGING STUDY STUDY INITIALLY PERFORMED: 05/01/2023 at [facility]. TYPE OF STUDY: Multiple CT images [...] images may or may not represent the [place] source data set and thus may contain [...] * XR Outside Reference (05/01/2023 6:05 AM DYE BOARDING MACHINE OPERATOR) Impressions [facility] - 05/01/2023 6:05 AM DYE BOARDING MACHINE OPERATOR These images are for Reference purposes only and have not been reviewed by [facility] Radiology. ??There will be no report generated by a [facility] Radiologist. Narrative [facility] - 05/01/2023 6:05 AM DYE BOARDING MACHINE OPERATOR EXAMINATION: ??Images For Reference Purposes Only Nagi Landa MD IMG XR PROCEDURES Sally l Result [facility] * CT Body Outside Consult (05/01/2023 6:01 AM DYE BOARDING MACHINE OPERATOR) Anatomical Region Laterality Modality Body N/A Computed Tomogra phy 05/01/2023 6:18 AM DYE BOARDING MACHINE OPERATOR Impressions 05/01/2023 8:52 AM DYE BOARDING MACHINE OPERATOR Incompletely imaged Type B aortic dissection, which [...] images may or may not represent the [place] source data set and thus may contain changes that may lower the accuracy of this second-opinion interpretation. Dictated by: Jr Gallahger MD The radiology attending physician has personally reviewed this study, and had reviewed and/or edited this written report and agrees with it. Electronically signed by: Ruthie Malone M.D. Narrative 05/01/2023 8:52 AM DYE BOARDING MACHINE OPERATOR EXAMINATION: RADIOLOGY CONSULTATION ON OUTSIDE IMAGING STUDY STUDY INITIALLY PERFORMED: 05/01/2023 at [facility]. TYPE OF STUDY: Multiple CT images [...] opacification/mixing occurring from likely fenestration below the [id number]. ??The nonopacification of the false lumen may [...] IMAGING STUDY STUDY INITIALLY PERFORMED: 05/01/2023 at [facility]. TYPE OF STUDY: Multiple CT images [...] opacification/mixing occurring from likely fenestration below the [id number]. The nonopacification of the false lumen may [...] images may or may not represent the [place] source data set and thus may contain changes that may lower the accuracy of this second-opinion interpretation. Dictated by: Jr Gallagher MD The radiology attending physician has personally reviewed this study, and had reviewed and/or edited this written report and agrees with it. Electronically signed by: Ruthie Malone M.D. us Nagi Landa MD IMG CT PROCEDURES Sally l Result * [place] ARTL CATHJ/CANNULJ MNTR/TRANSFUSION SPX PRQ (05/01/2023 5:56 AM DYE BOARDING MACHINE OPERATOR) Narrative Nagi Landa MD - 05/01/2023 5:56 AM DYE BOARDING MACHINE OPERATOR Meron Monterroso MD ? 05/01/2023 ??7:01 AM Arterial line Date/Time: 05/01/2023 5:56 AM Performed by: Meron Monterroso MD Authorized by: Nagi Landa MD ?? [place] Protocol: ??RN Notified of Procedure: yes ?? [...] Final Result * eGFR (05/01/2023 5:19 AM DYE BOARDING MACHINE OPERATOR) [facility] eGFR 66 >=60 mL/min/1. 73 m2 [facility] Comment: Interpretive Data Reference Interval [...] last reviewed 2021. Blood 05/01/2023 5:19 AM DYE BOARDING MACHINE OPERATOR 05/01/2023 5:31 AM DYE BOARDING MACHINE OPERATOR us Meron Aguilera MD LAB BLOOD ORDERABLES Final Result [facility] [place] [address] * Fentanyl Confirmation, Urine (05/01/2023 5:19 AM DYE BOARDING MACHINE OPERATOR) Fentanyl Conf, Ur Confirmed Positive Cutoff 0.3ng/mL [facility] Acetylfentanyl Conf, Ur Does Not Confirm Cutoff 1 ng/mL [facility] Acrylfentanyl Conf, Ur Does Not Confirm Cutoff 1 ng/mL [facility] Furanylfentanyl Conf, Ur Does Not Confirm Cutoff 1 ng/mL [facility] Fentanyl Metabolite (Norfentanyl) Conf, Ur Confirmed Positive CutOff 5 ng/mL [facility] Xylazine MS [...] needed. Performance characteristics were determined by the [facility] in a manner consistent with CLIA requirement and has not been cleared or approved by the U.S. Food and Drug Administration. Current interpretive data was last revised 2020. Urine 05/01/2023 5:19 AM DYE BOARDING MACHINE OPERATOR 05/01/2023 5:31 AM DYE BOARDING MACHINE OPERATOR Meron Aguilera MD LAB URINE ORDERABLES Final Result Performing Organization Address [facility] Co de Phone Number [facility] [place] [address] * (ABNORMAL) Urinalysis, microscopic only (05/01/2023 5:19 AM DYE BOARDING MACHINE OPERATOR) WBC, ur 0-5 0 - 5 /HPF [facility] RBC, ur 21-50(A) 0 - 2 /HPF [facility] Epithelial cells, squamous, ur 1-5 0 - 5 /HPF [facility] Bacteria, ur Trace(A) [facility] Culture Reflex Comment Reflex conditions for urine culture (WBC >10) not met. [facility] Urine 05/01/2023 5:19 AM DYE BOARDING MACHINE OPERATOR 05/01/2023 5:28 AM DYE BOARDING MACHINE OPERATOR Meron Aguilera MD LAB URINE ORDERABLES Final Result Performing Organization Address City/[facility] Co de Phone Number [facility] [place] [address] * (ABNORMAL) Differential, auto (05/01/2023 5:19 AM DYE BOARDING MACHINE OPERATOR) Neutrophil abs 17.9(H) 1.7 - 6.5 K/cumm [facility] Imm gran abs 0.3(H) 0.0 - 0.1 K/cumm [facility] Lymphocyte abs 1.0 0.8 - 3.3 K/cumm [facility] Monocyte abs 1.4(H) 0.2 - 0.8 K/cumm [facility] Eosinophil abs 0.0 0.0 - 0.5 K/cumm [facility] Basophil abs 0.1 0.0 - 0.1 K/cumm [facility] Neutrophil pct 86.9 % [facility] Comment: Interpretive Data Percent cell count reference ranges are not reported, since discordance with absolute values may lead to misinterpretation of CBC data. Current Interpretive Data was last revised on 2017. Imm gran pct 1.4 % [facility] Comment: Interpretive Data Percent cell count reference ranges are not reported, since discordance with absolute values may lead to misinterpretation of CBC data. Current Interpretive Data was last revised on 2017. Lymphocyte pct 4.7 % [facility] Comment: Interpretive Data Percent cell count reference ranges are not reported, since discordance with absolute values may lead to misinterpretation of CBC data. Current Interpretive Data was last revised on 2017. Monocyte pct 6.7 % [facility] Comment: Interpretive Data Percent cell count reference ranges are not reported, since discordance with absolute values may lead to misinterpretation of CBC data. Current Interpretive Data was last revised on 2017. Eosinophil pct 0.0 % [facility] Comment: Interpretive Data Percent cell count reference ranges are not reported, since discordance with absolute values may lead to misinterpretation of CBC data. Current Interpretive Data was last revised on 2017. Basophil pct 0.3 % [facility] Comment: Interpretive Data Percent cell count reference ranges are not reported, since discordance with absolute values may lead to misinterpretation of CBC data. Current Interpretive Data was last revised on 2017. Blood 05/01/2023 5:19 AM DYE BOARDING MACHINE OPERATOR 05/01/2023 5:31 AM DYE BOARDING MACHINE OPERATOR us Meron Aguilera MD LAB BLOOD ORDERABLES Final Result [facility] [place] [address] * (ABNORMAL) Drugs of Abuse Screen, Urine with Reflex Confirmation (05/01/2023 5:19 AM DYE BOARDING MACHINE OPERATOR) [facility] Amphetamine, ur Not Detected CutOff 500ng/mL [facility] Comment: Interpretive Data - Amphetamines: ??Samples containing greater than 500 ng/mL d-methamphetamine ??or other cross-reacting amphetamine compounds are reported as positive. ??Amphetamine immunoassays are subject to significant false positive rates due to cross-reactivity of non-amphetamine drugs. Confirmatory testing required for definitive results. Current Interpretive Data was last reviewed 2022. Barbiturates, ur Not Detected CutOff 200ng/mL [facility] Comment: Interpretive Data - Barbiturates: ??Samples containing greater than 200 ng/mL secobarbital or other cross-reacting barbiturate compounds are reported as positive. ??False positive and false negative results are possible. Confirmatory testing required for definitive results. Current Interpretive Data was last reviewed 2022. Benzodiazepines, ur Not Detected CutOff 100ng/mL [facility] Comment: Interpretive Data - Benzodiazepines: ??Samples containing greater than 100 ng/mL nordiazepam or other cross-reacting compounds are reported as positive. False positive and false negative results are possible. Confirmatory testing required for definitive results. Current Interpretive Data was last reviewed 2022. Cannabinoids, ur Screen Positive, presumptive (A) CutOff 50 ng/mL [facility] Comment: Interpretive Data - Cannabinoids: ??Samples containing greater than 50 ng/mL delta-9 THC -COOH or other cross-reacting compounds are reported as positive. ??False positive and false negative results are possible. ??Confirmatory testing required for definitive results. Current Interpretive Data was last reviewed 2022. Cocaine, ur Not Detected CutOff 150ng/mL [facility] Comment: Interpretive Data - Cocaine: ??Samples containing greater than 150 ng/mL benzoylecgonine or other cross-reacting compounds are reported as positive. False positive and false negative results are possible. Confirmatory testing required for definitive results. Current Interpretive Data was last reviewed 2022. Fentanyl, Ur Screen Positive, presumptive (A) Cutoff 1 ng/mL [facility] Comment: Interpretive Data - Fentanyl: ??Samples containing greater than 1 ng/mL fentanyl or other cross-reacting fentanyl compounds are reported as positive. ??False positive and false negative results are possible. Confirmatory testing required for definitive results. Current Interpretive Data was last reviewed 2022. Methadone, ur Not Detected CutOff 300ng/mL [facility] Comment: Interpretive Data - Methadone: ??Samples containing greater than 300 ng/mL d,l-methadone or other cross-reacting compounds are reported as positive. ??False positive and false negative results are possible. Confirmatory testing required for definitive results. Current Interpretive Data was last reviewed 2022. Opiates, ur Not Detected CutOff 300ng/mL [facility] Comment: Interpretive Data - Opiates: ??Samples containing greater than 300 ng/mL morphine or other cross-reacting compounds are reported as positive. ??False positive and false negative results are possible. Confirmatory testing required for definitive results. Current Interpretive Data was last reviewed 2022. Oxycodone, ur Not Detected CutOff 100ng/mL [facility] Comment: Interpretive Data - Oxycodone: ??Samples containing greater than 100 ng/mL oxycodone or other cross-reacting compounds are reported as ??positive. ??False positive and false negative results are possible. Confirmatory testing required for definitive results. Current Interpretive Data was last reviewed 2022. Phencyclidine, ur Not Detected CutOff 25 ng/mL [facility] Comment: Interpretive Data - Phencyclidine: ??Samples containing greater than 25 ng/mL phencyclidine or other cross-reacting compounds are reported as positive. ??False positive and false negative results are possible. Confirmatory testing required for definitive results. Current Interpretive Data was last reviewed 2022. Urine Creatinine 88 mg/dL [facility] Comment: Interpretive Data Urine Creatinine: < 10 mg/dL is extremely dilute = or > 10 but < 20 mg/dL is dilute = or > 20 mg/dL is normal Current Interpretive Data was last revised on 2017. Urine 05/01/2023 5:19 AM DYE BOARDING MACHINE OPERATOR 05/01/2023 5:31 AM DYE BOARDING MACHINE OPERATOR Narrative [facility] - 05/01/2023 6:34 AM DYE BOARDING MACHINE OPERATOR Drug of Abuse screening is performed by immunoassay for medical purposes only. ??This is not to be used for Pain Management purposes. ??If Detected, confirmation testing will be performed for Amphetamines, Cocaine, Fentanyl, Methadone, Opiates, Oxycodone or Phencyclidine. Meron Aguilera MD LAB URINE ORDERABLES Final Result Performing Organization Address [facility] Co de Phone Number [facility] [place] [address] * (ABNORMAL) Urinalysis reflex to microscopic and culture Urine (05/01/2023 5:19 AM DYE BOARDING MACHINE OPERATOR) Color, ur Straw Yellow [facility] Clarity, ur Clear Clear [facility] Specific gravity, ur >1.042(H) 1.003 - 1.030 [facility] pH, urine 6.5 [facility] Comment: Interpretive Data ? Urine pH is affected by diet, medications, systemic acid-base disturbances, and renal tubular function. ??pH may affect urinary stone formation. ??For example, urine pH below 6.0 may help reduce the tendency for calcium phosphate stones and pH greater than 6.0 may reduce the tendency for uric acid stone formation. Source: [facility] [employer] Current Interpretive Data was last revised on 2017 Protein, ur ql 1+(A) Negative [facility] Glucose, ur ql Trace(A) Negative [facility] Ketones, ur Negative Negative [facility] Bilirubin, ur Negative Negative [facility] Blood, ur 1+(A) Negative [facility] Urobilinogen, ur <2.0 <2.0 mg/dL [facility] Nitrite, ur Negative Negative [facility] Leukocyte esterase, ur Negative Negative [facility] UA reflex comment Reflex to microscopic UA will be performed. [facility] Urine 05/01/2023 5:19 AM DYE BOARDING MACHINE OPERATOR 05/01/2023 5:28 AM DYE BOARDING MACHINE OPERATOR Meron Aguilera MD LAB MICROBIOLOGY - GENERAL ORDERABLES Final Result Performing Organization Address [facility] Co de Phone Number [facility] [place] [address] * aPTT (05/01/2023 5:19 AM DYE BOARDING MACHINE OPERATOR) Pathologist [facility] aPTT 34 28 - 38 sec [facility] Comment: Interpretive Data Heparin therapeutic range: 66.0 - 100.0 seconds. Range based on correlation with therapeutic heparin activity range of 0.3 - 0.7 Units/mL. Current interpretive data was last revised on 2023. Blood 05/01/2023 5:19 AM DYE BOARDING MACHINE OPERATOR 05/01/2023 5:30 AM DYE BOARDING MACHINE OPERATOR Meron Aguilera MD LAB BLOOD ORDERABLES Final Result Performing Organization Address [facility] [place] [address] * Protime-INR (05/01/2023 5:19 AM DYE BOARDING MACHINE OPERATOR) Pathologist [facility] PT 13.7 10.3 - 13.7 sec [facility] INR 1.20 0.90 - 1.20 [facility] Comment: Interpretive data Oral anticoagulant therapeutic ranges: Venous thromboembolism prophylaxis or treatment: 2.0-3.0 CARDIOLOGY Standard range: 2.0-3.0 High-intensity range: 2.5-3.5 Refer to indication-specific guidelines for appropriate target ranges for prosthetic heart valve replacement. Current interpretive data was last revised on 2019. Blood 05/01/2023 5:19 AM DYE BOARDING MACHINE OPERATOR 05/01/2023 5:30 AM DYE BOARDING MACHINE OPERATOR Meron Aguilera MD LAB BLOOD ORDERABLES Final Result Performing Organization Address City/[facility]/[place] [address] * (ABNORMAL) Comprehensive metabolic panel (05/01/2023 5:19 AM DYE BOARDING MACHINE OPERATOR) Pathologist [facility] Sodium 140 135 - 145 mmol/L [facility] Potassium, pl 4.1 3.3 - 4.9 mmol/L [facility] Chloride 103 97 - 110 mmol/L [facility] CO2 26 22 - 32 mmol/L [facility] Anion gap 11 2 - 15 mmol/L [facility] BUN 20 6 - 25 mg/dL [facility] Creatinine 1.46(H) 0.80 - 1.30 mg/dL [facility] Glucose 137 70 - 199 mg/dL [facility] Comment: Interpretive Data Fasting glucose >/= [...] 2022. Calcium 9.0 8.5 - 10.3 mg/dL [facility] Bilirubin, total 0.8 0.1 - 1.2 mg/dL [facility] Protein, pl 7.4 6.5 - 8.5 g/dL [facility] Albumin 4.6 3.5 - 5.0 g/dL [facility] Alk phos 90 40 - 130 Units/L [facility] ALT 20 7 - 55 Units/L [facility] AST 21 10 - 50 Units/L [facility] Blood 05/01/2023 5:19 AM DYE BOARDING MACHINE OPERATOR 05/01/2023 5:31 AM DYE BOARDING MACHINE OPERATOR us Meron Aguilera MD LAB BLOOD ORDERABLES Final Result [facility] [place] [address] * (ABNORMAL) CBC with auto differential (05/01/2023 5:19 AM DYE BOARDING MACHINE OPERATOR) Pathologist [facility] WBC 20.6(H) 3.8 - 9.9 K/cumm [facility] Hgb 13.6 13.0 - 17.5 g/dL [facility] Comment: Interpretive Data A reference range for this assay has not been established for patients with an unknown legal sex. Please refer to the laboratory test catalog for established sex-specific reference intervals. Current interpretive data was last revised on 2023. Hct 39.4 38.9 - 50.3 % [facility] Comment: Interpretive Data A reference range for this assay has not been established for patients with an unknown legal sex. Please refer to the laboratory test catalog for established sex-specific reference intervals. Current interpretive data was last revised on 2023. Plt 165 150 - 400 K/cumm [facility] MPV 8.8(L) 9.1 - 12.3 fL [facility] RBC 4.45 4.30 - 5.80 M/cumm [facility] Comment: Interpretive Data A reference range for this assay has not been established for patients with an unknown legal sex. Please refer to the laboratory test catalog for established sex-specific reference intervals. Current interpretive data was last revised on 2023. MCV 88.5 81.3 - 96.4 fL [facility] MCH 30.6 27.1 - 33.3 pg [facility] MCHC 34.5 32.3 - 35.7 g/dL [facility] RDW CV 12.4 11.1 - 14.9 % [facility] RDW SD 40.4 35.7 - 48.1 fL [facility] NRBC abs 0.00 0.00 - 0.01 K/cumm [facility] Blood 05/01/2023 5:19 AM DYE BOARDING MACHINE OPERATOR 05/01/2023 5:31 AM DYE BOARDING MACHINE OPERATOR us Meron Aguilera MD LAB BLOOD ORDERABLES Final Result [facility] [place] [address] * (ABNORMAL) ECG 12 lead (05/01/2023 5:15 AM DYE BOARDING MACHINE OPERATOR) Narrative [facility] - 05/01/2023 5:15 AM DYE BOARDING MACHINE OPERATOR Meron Monterroso MD ? 05/01/2023 ??5:16 AM [...] Aguilera MD ECG ORDERABLES Final Resu lt [facility] * XR Chest 1 View (05/01/2023 5:14 AM DYE BOARDING MACHINE OPERATOR) Anatomical Region Laterality Modality Body, Chest N/A Computed Radiogr aphy 05/01/2023 5:18 AM DYE BOARDING MACHINE OPERATOR Impressions 05/01/2023 8:36 AM DYE BOARDING MACHINE OPERATOR No prior imaging available for comparison. ??Single view chest: Cardiac contours likely exaggerated by imaging technique. ??No pleural effusion. ??No pneumothorax. ??Mild bibasilar atelectasis. Dictated by: Jr Gallagher MD The radiology attending physician has personally reviewed this study, and had reviewed and/or edited this written report and agrees with it. Electronically signed by: Ruthie Malone M.D. Narrative 05/01/2023 8:36 AM DYE BOARDING MACHINE OPERATOR EXAMINATION: 1 view chest radiograph Procedure Note [...] it. Electronically signed by: Ruthie Malone M.D. 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 [...] 05/05/23 at 1800 Given 05/16/2023 12:08 PM DYE BOARDING MACHINE OPERATOR 1,000 mg Given 05/16/2023 6:19 AM DYE BOARDING MACHINE OPERATOR 1,000 mg Given 05/16/2023 12:16 AM DYE BOARDING MACHINE OPERATOR 1,000 mg albuterol HFA (PROVENTIL HFA,VENTOLIN HFA,PROAIR HFA) 90 mcg/actuation inhaler 2 puff 2 puff, inhalation, Every 4 hours PRN (respiratory scientist), wheezing, Starting on Catarina 05/05/23 at 1249 aspirin chewable tablet 81 mg 81 mg, oral, Daily, First dose (after last modification) on Tue05/06/23 at 0900 Given 05/16/2023 9:31 AM DYE BOARDING MACHINE OPERATOR 81 mg Given 05/15/2023 8:52 AM DYE BOARDING MACHINE OPERATOR 81 mg Given 05/14/2023 8:23 AM DYE BOARDING MACHINE OPERATOR 81 mg camphor-menthoL (SARNA) 0.5-0.5 % lotion topical, Every 6 hours PRN, itching, Starting on Tue05/08/23 at 0435, Apply to affected area: other Given 05/08/2023 5:35 AM DYE BOARDING MACHINE OPERATOR Carrier Fluids for Secondary Infusion - 0.9% Sodium Chloride 30 mL, intravenous, As needed, For priming tubing and/or flushing, Starting on Tue05/02/23 at 2126, 0-250ml/hr to flush line after IV infusions when no maintenance IV ordered. Infuse 30mL at the same rate as the secondary infusion. Run as primary IV, not intended for KVO Given 05/03/2023 8:55 AM DYE BOARDING MACHINE OPERATOR 30 mL carvediloL (COREG) tablet 12.5 mg 12.5 mg, oral, 2 times daily, First dose (after last modification) on Tue05/13/23 at 0900 Given 05/16/2023 9:31 AM DYE BOARDING MACHINE OPERATOR 12.5 mg Given 05/15/2023 9:17 PM DYE BOARDING MACHINE OPERATOR 12.5 mg Given 05/15/2023 8:53 AM DYE BOARDING MACHINE OPERATOR 12.5 mg gabapentin (NEURONTIN) capsule 300 mg 300 mg, oral, 3 times daily, First dose on Tue05/08/23 at 1015 Given 05/16/2023 4:14 PM DYE BOARDING MACHINE OPERATOR 300 mg Given 05/16/2023 9:31 AM DYE BOARDING MACHINE OPERATOR 300 mg Given 05/15/2023 9:17 PM DYE BOARDING MACHINE OPERATOR 300 mg heparin 5,000 unit/mL injection 5,000 Units 5,000 Units, subcutaneous, Every 8 hours scheduled, First dose on Tue05/03/23 at 1400, Indications: Deep Vein Thrombosis PreventionIndications:Deep Vein Thrombosis Prevention Given 05/16/2023 1:38 PM DYE BOARDING MACHINE OPERATOR 5,000 Units Left Lower Abdomen Given 05/16/2023 6:19 AM DYE BOARDING MACHINE OPERATOR 5,000 Units L eft Upper Arm Given 05/15/2023 9:17 PM DYE BOARDING MACHINE OPERATOR 5,000 Units L eft Upper Arm heparin in 0.9% sodium chloride 2,000 unit/1,000 mL (2 unit/mL) infusion (premix) As needed, Starting on Tue05/02/23 at 1755, Intra-Op Given 05/02/2023 5:55 PM DYE BOARDING MACHINE OPERATOR 1,000 mL hydrOXYzine (ATARAX) tablet 25 mg 25 mg, oral, 4 times daily PRN, anxiety, Starting on Tue05/12/23 at 1931 Given 05/15/2023 9:17 PM DYE BOARDING MACHINE OPERATOR 25 mg Given 05/13/2023 9:26 PM DYE BOARDING MACHINE OPERATOR 25 mg Given 05/13/2023 5:18 AM DYE BOARDING MACHINE OPERATOR 25 mg ioversoL (OPTIRAY 320) injection As needed, Starting on Tue05/02/23 at 1905, Intra-Op Given 05/02/2023 7:05 PM DYE BOARDING MACHINE OPERATOR 39 mL Left Groin lidocaine (ASPERCREME) 4 % patch 2 patch 2 patch, transdermal, Administer over 12 Hours, Daily, First dose (after last modification) on Tue05/13/23 at 2030, Apply to affected area: neck Medication Applied 05/15/2023 9:16 PM DYE BOARDING MACHINE OPERATOR 1 patch Back Medication Applied 05/14/2023 9:27 PM DYE BOARDING MACHINE OPERATOR 2 patches Other (Comment) Medication Applied 05/13/2023 9:25 PM DYE BOARDING MACHINE OPERATOR 2 patches Back methocarbamoL (ROBAXIN) tablet 750 mg 750 mg, oral, 3 times daily, First dose (after last modification) on Tue05/15/23 at 0900 Given 05/16/2023 4:14 PM DYE BOARDING MACHINE OPERATOR 750 mg Given 05/16/2023 9:31 AM DYE BOARDING MACHINE OPERATOR 750 mg Given 05/15/2023 9:17 PM DYE BOARDING MACHINE OPERATOR 750 mg nitroglycerin injection 100 mcg/mL in D5W 10 mL As needed, Starting on Tue05/02/23 at 1827, Intra-Op Given 05/02/2023 6:27 PM DYE BOARDING MACHINE OPERATOR 200 mcg Left Arm ondansetron ODT (ZOFRAN-ODT) disintegrating tablet 4 mg 4 mg, oral, Every 4 hours PRN, nausea, Starting on 05/16/23 at 1034 oxyCODONE (ROXICODONE) tablet 10 mg 10 mg, oral, Every 3 hours PRN, 1st line for pain, Starting on Tue05/08/23 at 1200, Indications: PainIndications:Pain Given 05/16/2023 12:08 PM DYE BOARDING MACHINE OPERATOR 10 mg Given 05/16/2023 6:25 AM DYE BOARDING MACHINE OPERATOR 10 mg Given 05/15/2023 9:17 PM DYE BOARDING MACHINE OPERATOR 10 mg polyethylene glycol (MIRALAX) packet 17 g 17 g, oral, 2 times daily, First dose (after last modification) on Tue05/13/23 at 2100, Hold for diarrhea, Indications: constipationIndications:constipation Given 05/16/2023 9:31 AM DYE BOARDING MACHINE OPERATOR 17 g Given 05/14/2023 8:22 AM DYE BOARDING MACHINE OPERATOR 17 g QUEtiapine (SEROquel) tablet 50 mg 50 mg, oral, Nightly, First dose (after last modification) on Tue05/16/23 at 2100 senna-docusate (PERICOLACE) 8.6-50 mg per tablet 2 tablet 2 tablet, oral, 2 times daily, First dose (after last modification) on Tue05/13/23 at 2100 Given 05/15/2023 8:52 AM DYE BOARDING MACHINE OPERATOR 2 tablets Given 05/14/2023 8:23 AM DYE BOARDING MACHINE OPERATOR 2 tablets sodium chloride (OCEAN) 0.65 % nasal spray 2 spray 2 spray, each nostril, Every 2 hours while awake, First dose (after last modification) on Catarina 05/05/23 at 1600 Given 05/15/2023 9:58 PM DYE BOARDING MACHINE OPERATOR 2 sprays Given 05/15/2023 8:11 PM DYE BOARDING MACHINE OPERATOR 2 sprays Given 05/15/2023 8:55 AM DYE BOARDING MACHINE OPERATOR 2 sprays sodium chloride 0.9% irrigation As needed, Starting on Tue05/02/23 at 1755, Intra-Op Given 05/02/2023 5:55 PM DYE BOARDING MACHINE OPERATOR 1,000 mL tamsulosin (FLOMAX) extended release capsule 0.4 mg 0.4 mg, oral, Daily, First dose (after last modification) on Tue05/11/23 at 0530, Do not crush, chew, cut, dissolve, open or otherwise manipulate tablet/capsule. Given 05/16/2023 9:31 AM DYE BOARDING MACHINE OPERATOR 0.4 mg Given 05/15/2023 8:52 AM DYE BOARDING MACHINE OPERATOR 0.4 mg Given 05/14/2023 8:23 AM DYE BOARDING MACHINE OPERATOR 0.4 mg verapamiL (ISOPTIN) injection Administer over 2 Minutes, As needed, Starting on 05/02/23 at 1827, Intra-Op Given 05/02/2023 6:27 PM DYE BOARDING MACHINE OPERATOR 5 mg Left Arm documented in this encounter Discontinued Medications Medication Sig Discontinue Reason Start Date End Da te QUEtiapine (SEROquel) 25 mg tablet Take 2 tablets (50 mg total) by mouth nightly Stop Taking at Discharge 05/16/2023 05/16/2023 documented as of this encounter Active and Recently Administered Medications Times are shown in DYE BOARDING MACHINE OPERATOR. Scheduled Medication Order 05/14/2023 05/15/2023 05/16/2023 acetaminophen (TYLENOL) tablet 1,000 mg 1,000 mg, oral, Every 6 hours scheduled, First dose (after last modification) on Catarina 05/05/23 at 1800 0521 (Given - Provider: Gladys Dietz RN)1110 (Given - Provider: Db Harrison RN)1618 (Given - Provider: Db Harrison, RN)2348 (Given - Provider: Gladys Dietz RN) 0553 (Given - Provider: Gladys Dietz RN)1233 (Given - Provider: Db Harrison RN)1611 (Given - Provider: Db Harrison, RN) 0016 (Given - Provider: Gladys Dietz, BRIA)0619 (Given - Provider: Gladys Dietz RN)1208 (Given - Provider: Nataliya English, BRIA) aspirin chewable tablet 81 mg 81 [...] 0900 0823 (Given - Provider: Db Harrison RN)2126 (Given - Provider: Venessa Keller RN) 0853 (Given - Provider: Db Harrison RN)2116 (Given - Provider: Gladys Dietz RN) 0931 (Given - Provider: Nataliya English RN) gabapentin (NEURONTIN) capsule 300 mg 300 mg, oral, 3 times daily, First dose on Tue05/08/23 at 1015 0823 (Given - Provider: Db Harrison RN)1613 (Given - Provider: Db Harrison RN)2126 (Given - Provider: Venessa Keller RN) 0853 (Given - Provider: Db Harrison RN)1611 (Given - Provider: Db Harrison RN)2116 (Given - Provider: Gladys Dietz RN) 0931 (Given - Provider: Nataliya English RN)1614 (Given - Provider: Nataliya English RN) heparin 5,000 unit/mL injection 5,000 Units 5,000 Units, subcutaneous, Every 8 hours scheduled, First dose on Tue05/03/23 at 1400, Indications: Deep Vein Thrombosis Prevention 0521 (Given - Provider: Gladys Dietz RN)1350 (Given - Provider: Db Harrison RN)2142 (Given - Provider: Venessa Keller RN) 0553 [...] RN)2126 (Medication Applied - Provider: Venessa Keller, RN) 0855 (Medication Removed - Provider: Db Harrison RN)2115 (Medication Applied - Provider: Gladys Dietz RN - Comment: pt only wants one patch) 0932 (Medication Removed - Provider: Nataliya English, BRIA) magnesium citrate oral solution 296 mL (COMPLETED) 296 mL, oral, Once, On Tue05/14/23 at 1030, For 1 dose 1106 (Given - Provider: Db Harrison RN) methocarbamoL (ROBAXIN) tablet 750 mg 750 mg, oral, 3 times daily, First dose (after last modification) on Tue05/15/23 at 0900 0852 (Given - Provider: Db Harrison RN)1611 (Given - Provider: Db Harrison RN)2116 (Given - Provider: Gladys Dietz RN) 0931 (Given - Provider: Nataliya English RN)161 (Given - Provider: Nataliya English RN) polyethylene [...] Dietz RN - Reason: Patient/family refused) 0931 (Given - Provider: Nataliya English RN) QUEtiapine [...] 2100 0823 (Given - Provider: Db Harrison RN)2142 (Not Given - Provider: Venessa Keller RN - Reason: Patient/family refused) 0852 (Given - Provider: Db Harrison RN)211 (Not Given - Provider: Gladys Dietz RN - Reason: Patient/family refused) 0931 (Not Given - Provider: Nataliya English RN - Reason: Patient/family refused) sodium chloride (OCEAN) 0.65 % nasal spray 2 spray 2 spray, each nostril, Every 2 hours while awake, First dose (after last modification) on Tue05/05/23 at 1600 0603 (Given - Provider: Gladys [...] RN) 0555 (Not Given - Provider: Gladys Dietz RN - Reason: Patient/family refused)0855 (Given - [...] Provider: Db Harrison RN - Reason: Patient/family refused)2010 (Given - Provider: Gladys Dietz RN)215 (Given - Provider: Gladys Dietz RN) 0627 [...] 2 puff, inhalation, Every 4 hours PRN (respiratory scientist), wheezing, Starting on Catarina 05/05/23 at 1249 [...] at 1931 2117 (Given - Provider: Gladys Dietz RN) ioversoL (OPTIRAY 350) syringe 125 mL (COMPLETED) 125 mL, intravenous, Once in imaging, contrast, Starting on Tue05/16/23 at 1023, For 1 dose 1029 (Contrast Given - Provider: Jackie Garay, RT) methocarbamoL (ROBAXIN) tablet 750 mg (CANCELED) 750 mg, oral, 3 times daily PRN, muscle spasms, espeically back pain, Starting on Tue05/13/23 at 1959 0823 (Given - Provider: Db Harrison RN)1614 (Given - Provider: Db Harrison RN) ondansetron ODT (ZOFRAN-ODT) disintegrating tablet 4 mg 4 mg, oral, Every 4 hours PRN, nausea, Starting on Tue05/16/23 at 1034 oxyCODONE (ROXICODONE) tablet 10 mg [...] Date First Ordered Date ioversoL (OPTIRAY 350) syringe 125 mL 3 05/02/2023 ondansetron ODT (ZOFRAN-ODT) disintegrating tablet 4 mg 1 05/16/2023 QUEtiapine (SEROquel) tablet 50 mg 4 202205/05/2023 methocarbamoL (ROBAXIN) tablet 750 mg 2 05/13/2023 magnesium citrate oral solution 296 mL 1 carvediloL (COREG) tablet 12.5 mg 5 023 05/01/2023 Lactated Ringer's (LR) bolus 1,000 mL 2 05/01/2023 lidocaine (ASPERCREME) 4 % patch 2 patch 3 05/13/2023 05/02/2023 polyethylene glycol (MIRALAX) packet 17 g 4 05/13/2023 05/02/2023 senna-docusate (PERICOLACE) 8.6-50 mg per tablet 2 tablet 2 05/13/2023 05/10/2023 HYDROmorphone (DILAUDID) injection 0.5 mg 15 05/12/2023 05/01/2023 hydrOXYzine (ATARAX) tablet 25 mg 1 023 sodium chloride 0.9% IVPB 0-250 mL 4 202205/05/2023 carvediloL (COREG) tablet 25 mg 3 3 05/02/2023 HYDROmorphone (DILAUDID) injection 0.2 mg 2 2023 05/02/2023 ioversoL (OPTIRAY 350) syringe 75 mL 2 04/29 lidocaine (GLYDO) 2 % jelly 220 mg 1 2022 niCARdipine (CARDENE) 125,00 0 mcg in sodium chloride 0.9% 250 mL (500 mcg/mL) infusion 4 2023 05/09/2023 potassium, sodium phosphates (PHOS-NAK) 280-160-250 mg packet 1 packet 1 2023 QUEtiapine (SEROquel) tablet 75 mg 1 2022 senna-docusate (PERICOLACE) 8.6-50 mg per tablet 1 tablet 1 2023 tamsulosin (FLOMAX) extended release capsule 0.4 mg 2 2023 bisacodyL (DULCOLAX) suppository 10 mg 1 furosemide (LASIX) 10 mg/mL injection 40 mg 6 05/10/2023 05/03/2023 lidocaine (ASPERCREME) 4 % patch 1 patch 1 05/10/2023 lidocaine (XYLOCAINE) 10 mg/ mL (1 %) injection 50 mg 2 05/10/2023 05/05/2023 potassium chloride ER (KLOR- CON) extended release tablet 20 mEq 2 05/10/2023 05/05/2023 haloperidol (HALDOL) injection 10 mg 3 04/2905/08/2023 labetaloL (NORMODYNE,TRANDAT E) injection 10 mg 2 05/09/2023 lidocaine in dextrose 5% 2 g /250 mL (8 mg/mL) infusion (premix) 3 05/09/2023 05/02/2023 metoprolol (LOPRESSOR) injection 10 mg 6 05/01/2023 midazolam (VERSED) 1 mg/mL injection 2 mg 3 05/09/2023 05/04/2023 niCARdipine in 0.9% sodium c hloride (CARDENE) 25,000 mcg/50 mL (500 mcg/mL) infusion (premix) 1 05/09/2023 niCARdipine in 0.9% sodium c hloride (CARDENE) 25,000 mcg/50 mL (500 mcg/mL) infusion (premix) - ADS Override Pull 1 05/09/2023 phenylephrine in 0.9% sodium chloride (KARLI-SYNEPHRINE) 25,000 mcg/250 mL (100 mcg/mL) infusion (premix) solution 1 05/09/2023 potassium chloride 20 mEq/50 mL in sterile water (premix) 20 mEq 4 05/09/2023 05/02/2023 potassium chloride 40 mEq/10 0 mL in sterile water (premix) 40 mEq 8 05/09/2023 05/04/2023 propranoloL (INDERAL) injection 1 mg 3 04/29 QUEtiapine (SEROquel) tablet 100 mg 2 05/0905/08/2023 QUEtiapine (SEROquel) tablet 150 mg 1 05/09 albumin 5 % bottle 25 g 1 05/08/2023 camphor-menthoL (SARNA) 0.5-0.5 % lotion 1 05/08/2023 gabapentin (NEURONTIN) capsule 300 mg 1 02/2023 hydrOXYzine (ATARAX) tablet 10 mg 1 023 ketamine (KETALAR) injection 10 mg 2 2022 ketamine in 0.9% sodium chlo ride (KETALAR) 1,000 mg/100 mL (10 mg/mL) infusion (premix) 3 05/08/2023 05/04/2023 oxyCODONE (ROXICODONE) tablet 10 mg 4 05/0805/02/2023 acetaZOLAMIDE (DIAMOX) tablet 500 mg 2 01/2023 calcium chloride IV syringe 1 g 2 3 05/02/2023 clevidipine (CLEVIPREX) 50 m g/100 mL (0.5 mg/mL) (premix) 4 05/07/2023 05/01/2023 methocarbamoL (ROBAXIN) tablet 1,000 mg 1 1 07/08/2022 norepinephrine in dextrose 5 % (LEVOPHED) 8,000 mcg/250 mL (32 mcg/mL) infusion (premix) 1 05/07/[address] (PROTONIX) e xtended release tablet 40 mg 1 05/07/2023 prochlorperazine (COMPAZINE) injection 5 mg 1 05/07/2023 sodium phosphate - potassium phosphate (K-PHOS NEUTRAL) tablet 250 mg 1 05/07/2023 bumetanide (BUMEX) 0.25 mg/m L injection 2 mg 6 05/06/2023 05/03/2023 droPERidol (INAPSINE) injection 5 mg 1 12/2022 fentaNYL (SUBLIMAZE) bolus f rom bag 100 mcg 1 05/06/2023 fentaNYL (SUBLIMAZE) bolus from bag 50 mcg 4 05/06/2023 05/03/2023 fentaNYL (SUBLIMAZE) preserv ative free injection 100 mcg 2 05/06/2023 fentaNYL 2500 mcg/50 mL mirta ette/syringe (premix) 2 05/06/2023 05/03/2023 ketamine (KETALAR) bolus from bag 10 mg 2 1 07/07/2022 ketamine (KETALAR) injection 100 mg 1 05/06 phenylephrine (KARLI-SYNEPHRIN E) 1 mg/10 mL (100 mcg/mL) in sodium chloride 0.9% (premix) - ADS Override Pull 2 05/06/2023 propofol (DIPRIVAN) 10 mg/mL infusion 3 12/202205/02/2023 propofoL (DIPRIVAN) 10 mg/mL IV 200 mg 1 rocuronium (ZEMURON) injection 120 mg 1 12/2022 acetaminophen (TYLENOL) tablet 1,000 mg 3 1 07/06/2022 05/01/2023 albuterol HFA (PROVENTIL HFA ,VENTOLIN HFA,PROAIR HFA) 90 mcg/actuation inhaler 2 puff 2 05/05/2023 ALPRAZolam (XANAX) tablet 0.5 mg 2 05/05/20 aspirin chewable tablet 81 mg 2 05/05/2023 05/03/2023 calcium gluconate 2 g/100 mL in sodium chloride (premix) solution 2 g 1 05/05/2023 carvediloL (COREG) tablet 50 mg 2 3 05/03/2023 dilTIAZem (CARDIZEM) injection 15 mg 3 11/2022 docusate (COLACE) 10 mg/mL o ral liquid 100 mg 2 05/05/2023 05/02/2023 labetaloL (NORMODYNE,TRANDAT E) injection 20 mg 5 05/05/2023 05/03/2023 lidocaine (XYLOCAINE) 20 mg/ mL (2 %) injection 100 mg 1 05/05/2023 lidocaine (XYLOCAINE) 20 mg/ mL (2 %) injection 200 mg 1 05/05/2023 lidocaine (XYLOCAINE) 20 mg/ mL (2 %) preservative free injection - ADS Override Pull 1 05/05/2023 lidocaine PF (XYLOCAINE) 10 mg/mL (1 %) preservative free injection - ADS Override Pull 1 05/05/2023 lidocaine PF (XYLOCAINE) 10 mg/mL (1 %) preservative free injection 200 mg 1 05/05/2023 lisinopriL (PRINIVIL,ZESTRIL) tablet 20 mg 2 05/05/2023 lisinopriL (PRINIVIL,ZESTRIL) tablet 5 mg 4 05/05/2023 05/03/2023 magnesium sulfate 2 g/50 mL in water (premix) 2 g 2 05/05/2023 05/02/2023 metoprolol (LOPRESSOR) tablet 100 mg 3 11/202205/04/2023 oxyCODONE (ROXICODONE) tablet 5 mg 3 202205/01/2023 potassium chloride (KLOR-CON ) packet 20 mEq 5 05/05/2023 05/02/2023 potassium chloride (KLOR-CON ) packet 40 mEq 6 05/05/2023 05/03/2023 potassium, sodium phosphates (PHOS-NAK) 280-160-250 mg packet 2 packet 1 05/05/2023 propofoL (DIPRIVAN) 10 mg/mL IV 30 mg 1 11/2022 QUEtiapine (SEROquel) tablet 25 mg 1 2022 senna 1.76 mg/mL syrup 8.8 mg 2 05/05/2023 05/01/2023 sodium chloride (OCEAN) 0.65 % nasal spray 2 spray 2 05/05/2023 05/03/2023 calcium gluconate 1 g/50 mL in sodium chloride (premix) solution 1 g 1 05/04/2023 dilTIAZem (CARDIZEM) injection 10 mg 2 10/2022 esmolol in 0.9% sodium chlor radha (BREVIBLOC) 2,000 mg/100 mL (20 mg/mL) infusion (premix) 3 05/04/2023 05/02/2023 lisinopriL (PRINIVIL,ZESTRIL) tablet 10 mg 1 05/04/2023 meropenem (MERREM) 1,000 mg/ 110 mL in sodium chloride 0.9% (premix) 1,000 mg 1 05/04/2023 metoprolol tartrate (LOPRESS OR) immediate release tablet 50 mg 1 05/04/2023 potassium chloride 40 mEq/52 0 mL in sodium chloride 0.9% (premix) 40 mEq 2 05/04/2023 05/03/2023 chlorhexidine (PERIDEX) 0.12 % solution 15 mL 1 05/03/2023 dexmedeTOMIDine in 0.9% sodi um chloride (PRECEDEX) 400 mcg/100 mL (4 mcg/mL) infusion (premix) 1 05/03/2023 furosemide (LASIX) 200 mg in sodium chloride 0.9% 100 mL (2 mg/mL) infusion 1 05/03/2023 heparin 5,000 unit/mL inject ion 5,000 Units 1 05/03/2023 labetaloL (NORMODYNE,TRANDAT E) injection 40 mg 1 05/03/2023 Lactated Ringer's (LR) bolus 500 mL 1 05/03 linezolid (ZYVOX) 600 mg/300 mL in dextrose 5% (premix) 600 mg 1 05/03/2023 meropenem (MERREM) 2,000 mg/ 120 mL in sodium chloride 0.9% (premix) 2,000 mg 1 05/03/2023 metoprolol (LOPRESSOR) injection 5 mg 2 09/202205/01/2023 midazolam (VERSED) 1 mg/mL injection 5 mg 1 05/03/2023 sodium bicarbonate 8.4 % (1 mEq/mL) injection 50 mEq 2 05/03/2023 albuterol HFA (PROVENTIL HFA ,VENTOLIN HFA,PROAIR HFA) 90 mcg/actuation inhaler 8 puff 1 05/02/2023 Carrier Fluids for Secondary Infusion - 0.9% Sodium Chloride 2 05/02/2023 05/01/2023 ceFAZolin (ANCEF) 2,000 mg/2 0 mL in sterile water (premix) 2,000 mg 1 05/02/2023 cyclobenzaprine (FLEXERIL) tablet 10 mg 1 1 07/03/2022 dilTIAZem (CARDIZEM) injection 5 mg 2 05/02 docusate sodium (COLACE) capsule 100 mg 1 1 07/03/2022 esmolol in 0.9% sodium chlor radha (BREVIBLOC) 2,500 mg/250 mL (10 mg/mL) infusion (premix) 4 05/02/2023 05/01/2023 famotidine (PEPCID) 20 mg/50 mL in sodium chloride 0.9% (premix) 20 mg 1 05/02/2023 fentaNYL (SUBLIMAZE) preserv ative free injection 50 mcg 2 05/02/2023 05/01/2023 HYDROmorphone (DILAUDID) injection 0.4 mg 1 05/02/2023 hydrOXYzine (ATARAX) tablet 50 mg 1 023 Lactated Ringer's (LR) infusion 1 oxymetazoline (AFRIN) 0.05 % nasal spray 2 spray 1 05/02/2023 perflutren protein-a (OPTISO N) 3 mL in sodium chloride 0.9% 8 mL syringe 1 05/02/2023 sodium chloride 0.9% solution 2 05/02/2023 05/01/2023 carvediloL (COREG) tablet 6.25 mg 1 023 dextrose (D10W) 10% bolus 250 mL 1 05/01/20 dextrose gel in packet 15 g 1 05/01/2023 droPERidol (INAPSINE) injection 0.625 mg 4 05/01/2023 esmolol in 0.9% sodium chlor radha (BREVIBLOC) 2,500 mg/250 mL (10 mg/mL) infusion (premix) - ADS Override Pull 1 05/01/2023 glucagon injection 1 mg 1 05/01/2023 HYDROmorphone (DILAUDID) injection 1 mg 1 1 07/02/2022 insulin lispro (HumaLOG, ADM ELOG) 100 unit/mL injection 1-3 Units 1 05/01/2023 morphine injection 4 mg 1 05/01/2023 niCARdipine in sodium chlori de 0.9% (CARDENE) 25,000 mcg/250 mL (100 mcg/mL) infusion (premix) solution 2 05/01/2023 ondansetron (ZOFRAN) injection 4 mg 2 05/01 senna (SENOKOT) tablet 1 tablet 1 sodium chloride 0.9% flush 0.5-20 mL 2 07/2022 Lab Orders Without Results Count Last Ordered [...] 05/01/2023 documented in this encounter Care Teams Invoice Checker Relationship Specialty Start Date End Date Unknown, Notinfile PCP - General 04/30/23 06/05/23 documented as of this encounter
--- OUTSIDE RECORDS SUMMARY | 2024-05-30 05:41 | XMS_ITS | Encounter Summary ---
Author Organization [facility] Healthcare Address [address] [place] [address] Care Team Providers Care Mud Trucker Name Role Phone Unknown, Notinfile Primary Care Provider Unavail able Reason for Visit * Auth/Cert (Routine) Specialty Diagnoses / Procedures Referred By Fernando alan Referred To Contact Diagnoses Dissection of aorta, unspecified portion of aorta (HCC) Hypertension, unspecified type Class 1 obesity with body mass index (BMI) of 30.0 to 30.9 in adult, unspecified obesity type, unspecified whether serious comorbidity present AORTIC DISSECTION TYPE B Procedures na Referral ID Status Reason Start Date Expiration Date Visits Re quested Visits Authorized [id number] 1 1 Encounter Details Date Type Department Care Team (Late st Contact Info) Description 05/02/2023 4:27 PM 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 Anesthesia Event [facility] Operating Room [address] [place] [address] Ney Alex MD [address] [place] [address] Donita King NP [address] [facility] [address] [place] [address] Anesthesia Record Procedure Summary Procedure Name Responsible Anesthesiologist Anesthesia Start Time Anesthesia Stop Time THORACIC ENDOVASCULAR REPAIR - AORTIC (Chest) Ney Alex MD 05/02/23 1627 05/02/23 2149 Events Date Time Event Comment 05/02/2023 1627 An Start 1636 In Room 1637 An Start Data 1645 An Induction The patient was reevaluated immediately before moderate or deep sedation use and before anesthesia induction. 1649 An Intubation 1657 Anesthesia Ready 1742 Quick Note Goal per surgic al team is SBP between 80-100 mmHg. Concerned noted for brain perfusion in which the risk of further dissection outweighs hypotensive risk at this time per surgical team 1745 Proc Start 1745 Incision Start [address] anesthesia a ttending in room to perform intra-op RENA 2114 an stop data 2117 an stop data 2118 Proc Fin 2119 Out of Room 2145 Handoff to RN I completed my handoff [...] the time of handoff: No value filed. 2148 An Stop Meds Name Total midazolam PF 2 mg lidocaine (cardiac) syringe 2 % 20 mg propofol 883.13 mg fentaNYL 100 mcg rocuronium 110 mg phenylephrine 100 mcg/mL 100 mcg phenylephrine 1 mg/10 mL syringe (100 mc g/mL) 1.64 mg ondansetron PF (ZOFRAN) 2 mg/mL injectio n 4 mg ceFAZolin 2,000 mg esmolol in 0.9% sodium chlor radha (BREVIBLOC) 2,500 mg/250 mL (10 mg/mL) infusion (premix) 3,256.61 mg clevidipine (CLEVIPREX) 50 mg/100 mL (0. 5 mg/mL) (premix) 19.97 mg lidocaine in dextrose 5% 2 g/250 mL (8 m g/mL) infusion (premix) 5.89 mg heparin 1,000 unit/ml 11,000 Units niCARdipine 2,100 mcg protamine 50 mg sugammadex 200 mg EPINEPHrine 0.1 mg/mL 40 mcg famotidine 20 mg diphenhydrAMINE 50 mg albuterol inhaler 12 puff LR 2,000 mL LR 500 mL * Agents Name O2% N2O O2 N2O Air Sevoflurane Desflurane Inspired Desflurane Inspired Sevoflurane * Blood No blood administrations on file. Lines, Drains, and Airways Type Details Placement Removal Peripheral IV Placement Date: 05/01/23; Existing LDA Placed by: EMS; Catheter Size: 20 G; Orientation: Left, Posterior; Location: Wrist; Removal Date: 05/02/23; Removal Time: 1900; Removal Reason: Removal date unknown/not present on admission 05/01/23 0000 by Otoniel Fernandez RN 05/02/23 1900 by Claudia Lockwood RN Peripheral IV Placement Date: 05/01/23; Existing LDA Placed by: EMS; Catheter Size: 20 G; Orientation: Posterior, Right; Location: Wrist; Removal Date: 05/12/23; Removal Reason: Removed by patient (pt noticed that it had come out while he was sleeping, unsure if he pulled in sleep or if it fell out) 05/01/23 0000 by Otoniel Fernandez RN 05/12/23 0000 by Hill Hopper RN Peripheral IV Placement Date: 05/01/23; Placement Time: 0502; Catheter Size: 16 G; Orientation: Right; Location: Antecubital; Removal Date: 05/04/23; Removal Time: 1800; Removal Reason: Other (Comment) (not present upon change of shift) 05/01/23 0502 by Otoniel Fernandez RN 05/04/23 1800 by Ana Yap RN Arterial Line Placement Date: 05/01/23; Placemnt Time: 0549; Size: 18 G; Orientation: Left; Location: Radial; Site Prep: Chlorhexidine; Technique: Ultrasound guidance; Securement: Sutured, Transparent dressing; Removal Date: 05/02/23; Removal Time: 1700; Removal Reason: Other (Comment) (Surgical site) 05/01/23 0549 by Otoniel Fernandez RN 05/02/23 1700 by Jill Mace RN Urethral Catheter Placement Date: 05/02/23; Placement Time: 0230; Inserted by: Anil Arana RN; Type: Non-latex, Straight-tip, Temperature probe; Balloon Size: 10 mL; Urine Returned: Yes; Removal Date: 05/10/23; Removal Time: 1319; Removal Reason: Per order 05/02/23 0230 by Karolina Arana RN 05/10/23 1319 by Sally Ross RN ETT Placement Date: 05/02/23; Placement Time: 170 (created via procedure documentation); Mask Ventilation: 1; Technique: Video laryngoscopy; Type: ETT - single; Single Lumen Tube Size: 8 mm; Cuffed: Yes; Laryngoscope: Casey; Blade Size: 4; Location: Oral; Insertion Attempts: 1; Placement Verification: Auscultation, Capnometry; Removal Date: 05/05/23; Removal Time: 1055 05/02/23 170 by Emeka Barrow MD 05/05/23 105 by Radha Wyatt RRT Arterial Line Placement Date: 05/02/23; Placemnt Time: 170 (created via procedure documentation); Size: 3 Fr; Orientation: Right; Location: Radial; Securement: Taped, Transparent dressing; Removal Date: 05/07/23; Removal Time: 024; Removal Reason: Per order 05/02/23 170 by Emeka Barrow MD 05/07/23 0245 by Monster Teresa, BRIA RETIRED Surgical Site 05/02/23; 1745; Le ft; Groin; Puncture; 06/04/23; 0257; Therapy completed 05/02/23 1745 by Jill Mace RN 06/04/23 0257 by Karolina Henao, BRIA RETIRED Surgical Site 05/02/23; 1805; Anterior, Right; Wrist; Puncture; 05/16/23; 1038; Therapy completed 05/02/23 180 by Jill Mace RN 05/16/23 1038 by Nataliya English RN RETIRED Pressure Ulcer/Pressure Injury 05/02/23; 2137; Priscilla; Mid-line; Gluteal fold (horizontal junction between the thigh and buttock); Non-blanchanble erythema; Determined NOT to be a pressure ulcer; 05/03/23; 1654 05/02/232137 by Claudia Lockwood RN 05/03/231653 by Josie Chou RN NG/OG/Gastric tube Placement Date: 05/02/23; Placement Time: 2152; Inserted by: Elzbieta Lockwood RN; Type: Orogastric; Location: Center mouth; Removal Date: 05/05/23; Removal Time: 1130 05/02/232152 by Claudia Lockwood RN 05/05/231129 by Nella Griffin RN Peripheral IV Placement Date: 05/02/23; Placement Time: 2199; Catheter Size: 18 G; Orientation: Left; Location: Antecubital; Technique: Ultrasound guidance; Insertion Attempts: 1; Patient Tolerance: Tolerated well; Removal Date: 05/12/23; Removal Time: 135; Removal Reason: Per order 05/02/232199 by Claudia Lockwood RN 05/12/23 1356 by Vivian Wilcox RN documented in this encounter Social History Tobacco Use Types Packs/Day Years Used Date Smoking Tobacco: Never Smokeless Tobacco: Never Sex and Gender Information Value Date Recorded Sex Assigned at Not on file Legal Sex Male 3:42 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 Gender Identity Not on file Sexual Orientation Straight 06/12/2023 11 :43 PM 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 documented as of this encounter OR Notes * Anesthesia Postprocedure Evaluation - Ney Alex MD - 05/02/2023 9:46 PM CST Patient: Eriberto Chau Procedure Summary Date: 05/02/23 Room / Location: [facility] OR POD 3 ROOM 314 / [facility] OR POD 3 Anesthesia Start: 1627 Anesthesia Stop: Procedures: THORACIC ENDOVASCULAR REPAIR - AORTIC (Chest) PLACEMENT STENT - SUBCLAVIAN ARTERY - HYBRID ROOM (Left: Chest) CAUTERIZATION with silver nitrate stick on anterior active oozing area. packed with gelfoam and surgicel. Second attempt of suctioning, floseal 10, and surgicel packing of right nare. 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 Pain score: unable to evaluate Airway patency: adequate Evidence of recall: unable to evaluate Cardiovascular status: acceptable Respiratory status: ETT Hydration status: acceptable Nausea/Vomiting status: none Comments: Patient was transferred up to 8200 ICU fully monitored and stable throughout transport. Patient was kept intubated and was transported by ambu bag. Patient was on propofol infusion and on aclevidipine and esmolol infusion. Handoff given to ICU staff at bedside. All questions answered. During the end of the case the patient was having some nasal bleeding and needed ENT to be consulted, afrin and nasal plug was placed and patient was attempted to be emerged from anesthesia, prior to the happening the patient coughed and started bleeding again so the patient was placed back asleep andENT called back. Patient was also experiencing some desaturations shortly after this and O2 Sats were recovered with recruitment breaths, benadryl, pepcid, albuterol, deep suction (no blood noted andscant secretions, and small boluses of epi. The decision was made to keep the patient intubated until patient's O2 sats were more stable and nasal bleeding stopped. No notable events documented. 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 * Anesthesia Procedure Notes - Emeka Barrow MD - 05/02/2023 5:09 PM CSTAssociated Order(s): Arterial Line Arterial Line Patient location: OR Indication: continuous blood pressure monitoring and blood sampling needed Staff: Placed by: INSOLE TAPER: Jh Onofre CRNA Procedure prep: Prep solution: chlorhexadine/alcohol Prep: provider hat/mask and sterile gloves Arterial line: Catheter size: 3 Montserratian Catheter length: 8 cm Catheter type: wire-guided catheter Seldinger technique: yes Laterality: right Site: radial artery Line secured: tape and Tegaderm Results: good waveform and good blood return Number of attempts: 1 Assessment: Events: patient tolerated procedure well with no complications 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 TRUCK DRIVER * Anesthesia Procedure Notes - Emeka Barrow MD - 05/02/2023 5:06 PM CSTAssociated Order(s): Airway Airway Patient location: OR Urgency: elective Indications for airway management: anesthesia Difficult airway: no Staff: Supervising provider: Dalton Locke MD Placed by: Resident: Emeka Barrow MD Emergent airway documentation: Risks and benefits discussed: yes Consent obtained: yes Consent given by: patient Airway prep: Preoxygenated: yes Patient position: sniffing Mask difficulty assessment: 1 - vent by mask Spontaneous ventilation during airway: absent Sedation level during airway: GA Final airway details: Final airway type: endotracheal airway Tube type: ETT ETT size: 8.0 mm Cuffed: yes Technique used for successful ETT placement: video laryngoscopy Devices/Methods used in placement: stylet Insertion site: oral Blade type: Casey Video blade type: Miller Blade size: 4 Cormack-Lehane (video): grade I - full view of glottis Cuff volume: 8 mL Cuff inflated with: air ETT to lips: 23 cm Placement verified by: auscultation and CO2 detection Airway secured with: silk tape Number of attempts: 1 Planned trial extubation: yes ONAL TANKER TRUCK DRIVER * Anesthesia Preprocedure Evaluation - Dalton Locke MD - 05/02/2023 4:00 PM CST Anesthesia Evaluation Eriberto Chau is a 32 y.o. male Procedure(s): THORACIC ENDOVASCULAR REPAIR - AORTIC Pre-Op Diagnosis Codes: * Dissection of aorta, unspecified portion of aorta (HCC) [I71.00] HISTORY Past Medical History Cardiovascular + Hypertension Review of Systems Pertinent negatives: productive cough Patient Active Problem List Diagnosis Date Noted Dissection of thoracoabdominal aorta (CMS/HCC) ([facility]) 05/02/2023 Dissection of aorta, unspecified portion of aorta (HCC) 05/01/2023 No past medical history on file. No past surgical history on file. Allergies Allergen Reactions Amoxicillin Hives No medications on file. Current Facility-Administered Medications: [JUL Hold] acetaminophen (TYLENOL) tablet 1,000 mg, 1,000 mg, oral, Q6H SUSAN, 1,000 mg at 05/02/23 1225 [Jul] Carrier Fluids for Secondary Infusion - 0.9% Sodium Chloride, 30 mL, intravenous, PRN [JUL Hold] carvediloL (COREG) tablet 25 mg, 25 mg, oral, BID with meals (bkfst, dinner) clevidipine (CLEVIPREX) 50 mg/100 mL (0.5 mg/mL) (premix), 0-32 mg/hr, intravenous, Titrated, Last Rate: 64 mL/hr at 05/02/23 1645, 32 mg/hr at 05/02/23 164 [JUL Hold] cyclobenzaprine (FLEXERIL) tablet 10 mg, 10 mg, oral, TID PRN, 10 mg at 05/02/23 1225 [JUL Hold] dilTIAZem (CARDIZEM) injection 5 mg, 5 mg, intravenous, Q15 Min PRN, 5 mg at 05/02/23 0811 esmolol in 0.9% sodium chloride (BREVIBLOC) 2,500 mg/250 mL (10 mg/mL) infusion (premix), 0-300 mcg/kg/min, intravenous, Titrated, Last Rate: 187.7 mL/hr at 05/02/23 1645, 300 mcg/kg/min at 05/02/23 164 [JUL Hold] HYDROmorphone (DILAUDID) injection 0.4 mg, 0.4 mg, intravenous, Q2H PRN, 0.4 mg at 05/02/23 1511 [JUL Hold] lidocaine (ASPERCREME) 4 % patch 2 patch, 2 patch, transdermal, Q24H, 2 patch at 05/02/23 0311 lidocaine in dextrose 5% 2 g/250 mL (8 mg/mL) infusion (premix), 1 mg/kg/hr (Franklin), intravenous, Continuous, Last Rate: 8.84 mL/hr at 05/02/23 1306, 1 mg/kg/hr at 05/02/23 1306 [JUL Hold] ondansetron (ZOFRAN) injection 4 mg, 4 mg, intravenous, Q6H PRN, 4 mg at 05/02/23 1001 [JUL Hold] oxyCODONE (ROXICODONE) tablet 10 mg, 10 mg, oral, Q4H PRN, 10 mg at 05/02/23 1306 [JUL Hold] senna (SENOKOT) tablet 1 tablet, 1 tablet, oral, BID, 1 tablet at 05/02/23 0838 OR [JUL Hold] senna 1.76 mg/mL syrup 8.8 mg, 8.8 mg, feeding tube, BID [JUL Hold] sodium chloride 0.9% flush 0.5-20 mL, 0.5-20 mL, intra-catheter, Q8H SUSAN, 10 mL at 05/02/23 0509 [JUL Hold] sodium chloride 0.9% flush 0.5-20 mL, 0.5-20 mL, intra-catheter, PRN sodium chloride 0.9% solution, 3-12 mL/hr, intra-catheter, Continuous, Last Rate: 3 mL/hr at 05/02/23 0700, 3 mL/hr at 05/02/23 0700 Facility-Administered Medications Ordered in Other Encounters: ceFAZolin (ANCEF) injection, , intravenous, PRN, 2,000 mg at 05/02/23 1655 fentaNYL (SUBLIMAZE) preservative free injection, , intravenous, PRN, 100 mcg at 05/02/23 1647 Lactated Ringer's (LR) infusion, , intravenous, Continuous PRN, New Bag at 05/02/23 1647 lidocaine (cardiac) (XYLOCAINE) preservative free injection, , intravenous, PRN, 20 mg at 05/02/23 164 midazolam (VERSED) 2 mg/2 mL preservative free injection, , intravenous, PRN, 2 mg at 05/02/23 164 phenylephrine (KARLI-SYNEPHRINE) 1 mg/10 mL (100 mcg/mL) in sodium chloride 0.9% (premix), , intravenous, PRN, 100 mcg at 05/02/23 1703 propofoL (DIPRIVAN) 10 mg/mL IV, , intravenous, PRN, 160 mg at 05/02/23 1647 rocuronium (ZEMURON) injection, , intravenous, PRN, 100 mg at 05/02/23 1647 Social History Tobacco Use Smoking Status Never Smokeless Tobacco Never Alcohol Use: Not on file Substance and Sexual Activity Drug Use Not on file No family history on file. Vitals: 05/02/23 1400 05/02/23 1500 05/02/23 1600 BP: 106/45 94/56 106/54 Pulse: 74 72 75 Resp: 16 12 13 Temp: 36.9 ??C (98.4 ??F) SpO2: 94% 94% 95% PT: 05/02/2023: 14.9 sec (H) INR: 05/02/2023: 1.31 (H) APTT: 05/01/2023: 34 sec Hgb A1C: No results found for requested labs within last 30 days. CBC RBC: 05/02/2023: 3.49 M/cumm (L) RDW: No results found for requested labs within last 30 days. MCHC: 05/02/2023: 35.3 g/dL MCH: 05/02/2023: 31.2 pg MCV: 05/02/2023: 88.5 fL Hct: 05/02/2023: 30.9 % (L) Hgb: 05/02/2023: 10.9 g/dL (L) WBC: 05/02/2023: 15.0 K/cumm (H) MPV: 05/02/2023: 10.7 fL Platelets: 05/02/2023: 119 K/cumm (L) RDW CV: 05/02/2023: 12.3 % RDW Sd: 05/02/2023: 39.9 fL BMP Glucose: 05/02/2023: 104 mg/dL Calcium: 05/02/2023: 7.9 mg/dL (L) Sodium: 05/02/2023: 134 mmol/L (L) Potassium: 05/02/2023: See Comment mmol/L CO2: 05/02/2023: 21 mmol/L (L) Chloride: 05/02/2023: 104 mmol/L BUN: 05/02/2023: 18 mg/dL Creatinine: 05/02/2023: 1.19 mg/dL DOS Physical Exam Medical history, medications, and allergies reviewed. Attestation: I endorse the findings of the anesthesia pre-evaluation assessment dated: 05/02/2023. Airway Exam: Mallampati: II Cervical ROM: FROM Patient presents with ingram and mustache. Cardiovascular Exam: Rate: regular Rhythm: regular Dental Exam: Appears intact Current state: Patient's current state is cooperative and interactive. Anesthesia Plan ASA 4- emergent My patient is approved for the Anesthesia Controlled Medication protocol when under care of a INSOLE TAPER Planned anesthesia: General Team communication plan: oral ET tube Invasive Monitors Planned: Invasive monitors planned: RENA and arterial line. Induction: Induction: intravenous. Postoperative Plan: Postoperative administration opioids intended. No postoperative mechanical ventilation intended. Patient's planned disposition post procedure is ICU. Planned trial extubation. Informed Consent: Discussed plan with INSOLE TAPER. Anesthesia plan and risks discussed with patient. Consent and Attending signature: I and/or my designee have discussed the anesthesia plan, benefits, possible alternatives, parental presence at time of induction (if indicated), and clinically relevant risks that may include dental injury, unintentional awareness, and/or other complications. The patient and/or parent/legal guardian understand, and agree to proceed. All questions answered. 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 05/02/2023 ??5:09 PM Arterial Line Patient location: OR Indication: continuous blood pressure monitoring and blood sampling needed Staff: Placed by: INSOLE TAPER: Jh Onofre CRNA Procedure prep: Prep solution: chlorhexadine/alcohol Prep: provider hat/mask and sterile gloves Arterial line: Catheter size: 3 Montserratian Catheter length: 8 cm Catheter type: wire-guided catheter Seldinger technique: yes Laterality: right Site: radial artery Line secured: tape and Tegaderm Results: good waveform and good blood return Number of attempts: 1 Assessment: Events: patient tolerated procedure well with no complications us Dalton Locke MD ANESTHESIA ORDERAB LES Final Result * Airway (05/02/2023 5:06 PM 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) Narrative Emeka Barrow MD - 05/02/2023 5:06 PM 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 Emeka Barrow MD ? 05/02/2023 ??5:09 PM Airway Patient location: OR Urgency: elective Indications for airway management: anesthesia Difficult airway: no Staff: Supervising provider: Dalton Locke MD Placed by: Resident: Emeka Barrow MD Emergent airway documentation: Risks and benefits discussed: yes Consent obtained: yes Consent given by: patient Airway prep: Preoxygenated: yes Patient position: sniffing Mask difficulty assessment: 1 - vent by mask Spontaneous ventilation during airway: absent Sedation level during airway: GA Final airway details: Final airway type: endotracheal airway Tube type: ETT ETT size: 8.0 mm Cuffed: yes Technique used for successful ETT placement: video laryngoscopy Devices/Methods used in placement: stylet Insertion site: oral Blade type: Casey Video blade type: Miller Blade size: 4 Cormack-Lehane (video): grade I - full view of glottis Cuff volume: 8 mL Cuff inflated with: air ETT to lips: 23 cm Placement verified by: auscultation and CO2 detection Airway secured with: silk tape Number of attempts: 1 Planned trial extubation: yes us Dalton Locke MD ANESTHESIA ORDERAB LES Final Result documented in this encounter Visit Diagnoses Not on filedocumented in this encounter Administered Medications Inactive Administered Medications - up to 3 most recent administrations Medication Order MAR Action Action Date Dose Rate Site albuterol HFA (PROVENTIL HFA,VENTOLIN HFA,PROAIR HFA) 90 mcg/actuation inhaler inhalation, As needed, Starting on Tue05/02/23 at 2045, Anesthesia Intra-op Given 05/02/2023 8:57 PM 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 4 puffs Given 05/02/2023 8:46 PM 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 8 puffs ceFAZolin (ANCEF) injection intravenous, Administer over 3 Minutes, As needed, Starting on Tue05/02/23 at 1655, Anesthesia Intra-op Given 05/02/2023 4:55 PM 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 2,000 mg clevidipine (CLEVIPREX) 50 mg/100 mL [...] hours., Routine Rate/Dose Verify 05/03/2023 5:00 PM 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 24 mg/hr 48 mL/hr New Bag 05/03/2023 4:58 PM 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 24 mg/hr 48 mL/hr Rate/Dose Verify 05/03/2023 4:00 PM 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 24 mg/hr 48 mL/h r diphenhydrAMINE (BENADRYL) 50 mg/mL injection intravenous, Administer over 2 Minutes, As needed, Starting on Tue05/02/23 at 2048, Anesthesia Intra-op Given 05/02/2023 8:48 PM 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 50 mg EPINEPHrine syringe (ADRENALIN) 0.1 mg/mL intravenous, As needed, Starting on Tue05/02/23 at 2047, Anesthesia Intra-op Given 05/02/2023 9:07 PM 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 20 mcg Given 05/02/2023 8:59 PM 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 10 mcg Given 05/02/2023 8:47 PM 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 10 mcg esmolol in 0.9% sodium chloride (BREVIBLOC) 2,500 [...] 60-70, Routine Rate/Dose Verify 05/03/2023 10:00 PM 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 300 mcg/kg/min 187.7 mL/hr Rate/Dose Verify 05/03/2023 9:00 PM 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 300 mcg/kg/min 187 .7 mL/hr Rate/Dose Verify 05/03/2023 8:00 PM 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 300 mcg/kg/min 187 .7 mL/hr famotidine (PEPCID) injection intravenous, Administer over 2 Minutes, As needed, Starting on Tue05/02/23 at 2047, Anesthesia Intra-op Given 05/02/2023 8:47 PM 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 20 mg fentaNYL (SUBLIMAZE) preservative free injection intravenous, As needed, Starting on Tue05/02/23 at 1647, Anesthesia Intra-op Given 05/02/2023 4:47 PM 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 100 mcg heparin 1,000 unit/mL injection intravenous, As needed, Starting on Tue05/02/23 at 1808, Anesthesia Intra-op New Bag 05/02/2023 6:08 PM 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 11,000 Units Lactated Ringer's (LR) infusion intravenous, Continuous PRN, Starting on Tue05/02/23 at 1647, Anesthesia Intra-op New Bag 05/02/2023 6:21 PM 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 New Bag 05/02/2023 4:47 PM 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 Lactated Ringer's (LR) infusion intravenous, Continuous PRN, Starting on Tue05/02/23 at 1657, Anesthesia Intra-op New Bag 05/02/2023 4:57 PM 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 lidocaine (cardiac) (XYLOCAINE) preservative free injection intravenous, As needed, Starting on Tue05/02/23 at 1647, Anesthesia Intra-op, Indications: Ventricular ArrhythmiasIndications:Ventri cular Arrhythmias Given 05/02/2023 4:47 PM 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 20 mg lidocaine in dextrose 5% 2 g/250 mL (8 mg/mL) infusion (premix) 1 mg/kg/hr ? 70.7 kg Franklin weight (8.8375 mL/hr, rounded to 8.84 mL/hr), [...] 5., RoutineIndications:Pain Rate/Dose Verify 05/02/2023 4:27 PM 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 8.84 mL/hr New Bag 05/02/2023 1:06 PM 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 1 mg/kg/hr 8.84 mL/hr midazolam (VERSED) 2 mg/2 mL preservative free injection intravenous, Administer over 2 Minutes, As needed, Starting on Tue05/02/23 at 1647, Anesthesia Intra-op Given 05/02/2023 4:47 PM 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 2 mg niCARdipine (CARDENE) injection intravenous, As needed, Starting on Tue05/02/23 at 1822, Anesthesia Intra-op, Indications: hypertensionIndications:hypertension Given 05/02/2023 8:33 PM 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 500 mcg Given 05/02/2023 8:31 PM 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 500 mcg Given 05/02/2023 8:29 PM 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 200 mcg ondansetron (ZOFRAN) injection intravenous, Administer over 2 Minutes, As needed, Starting on Tue05/02/23 at 2025, Anesthesia Intra-op Given 05/02/2023 8:25 PM 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 4 mg phenylephrine (KARLI-SYNEPHRINE) 1 mg/10 mL (100 mcg/mL) in sodium chloride 0.9% (premix) intravenous, As needed, Starting on Tue05/02/23 at 1703, Anesthesia Intra-op Given 05/02/2023 5:03 PM 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 100 mcg phenylephrine (KARLI-SYNEPHRINE) 1 mg/10 mL (100 mcg/mL) in sodium chloride 0.9% (premix) intravenous, Continuous PRN, Starting on Tue05/02/23 at 1704, Anesthesia Intra-op Restarted 05/02/2023 7:00 PM 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 0.3 mcg/kg/min 19.35 mL/hr New Bag 05/02/2023 5:04 PM 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 0.5 mcg/kg/min 32.25 mL/ hr propofoL (DIPRIVAN) 10 mg/mL IV intravenous, As needed, Starting on Tue05/02/23 at 1647, Anesthesia Intra-op Given 05/02/2023 9:12 PM 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 100 mg Given 05/02/2023 8:55 PM 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 100 mg New Bag 05/02/2023 8:34 PM 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 50 mcg/kg/min 32.25 mL/h r protamine injection intravenous, As needed, Starting on Tue05/02/23 at 1912, Anesthesia Intra-op, Indications: Heparin ToxicityIndications:Heparin Toxicity Given 05/02/2023 7:12 PM 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 50 mg rocuronium (ZEMURON) injection intravenous, As needed, Starting on Tue05/02/23 at 1647, Anesthesia Intra-op Given 05/02/2023 7:06 PM 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 10 mg Given 05/02/2023 4:47 PM 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 100 mg sugammadex (BRIDION) 100 mg/mL intravenous solution intravenous, As needed, Starting on Tue05/02/23 at 2025, Anesthesia Intra-op Given 05/02/2023 8:25 PM 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 200 mg documented in this encounter Care Teams [employer] Relationship Specialty Start Date End Date Unknown, Notinfile PCP - General 04/30/23 06/05/23 documented as of this encounter
--- OUTSIDE RECORDS SUMMARY | 2024-05-30 05:46 | XMS_ITS | Encounter Summary ---
Author Organization [employer] Address [address] [place] [address] Care Team Providers Care Event Marketing Representative Name Role Phone [facility], External Provider Primary Care Provider U navailable Reason for Visit * Reason Comments Psychological Evaluation Pt reports depr ession x 2 months. Hx bipolar, did not go to last appt with psychiatrist b/c was not happy with treatment plan and med changes, as a result has been out of meds for the past month. Pt denies SI/HI, states I wake up crying and I can't stop. Pt reports episodes of severe anger as well. Pt calm in triage * Auth/Cert Specialty Diagnoses / Procedures Referred By Fernando t Referred To Contact Emergency Medicine [facility] Emergency Dept [address] [place] [address] Referral ID Status Reason Start Date Expiration Date Visits Re quested Visits Authorized [id number] 08/07/2015 09/06/2016 1 Encounter Details Date Type Department Care Team (Late st Contact Info) Description 08/07/2015 10:40 AM RN HEMODIALYSIS - 08/07/2015 3:01 PM [facility] Emergency [facility] Emergency Department [address] [place] [address] Chung Zayas MD [address] [facility] [place] [address] Depressed mood (Primary Dx) Discharge Disposition: Home or Self Care Social History Tobacco Use Types Packs/Day Years Used Date Smoking Tobacco: Never Alcohol Use Standard Drinks/Week Comments No 0 (1 standard drink = 0.6 oz pur e alcohol) Sex and Gender Information Value Date Recorded Sex Assigned at Not on file Gender Identity Not on file Sexual Orientation Not on file documented as of this encounter Last Filed Vital Signs Vital Sign Reading Time Taken Comments Blood Pressure 142/100 08/07/2015 2:53 PM RN HEMODIALYSIS Pulse - - Temperature 36.7 ??C (98 ??F) 08/07/2015 10:33 AM RN HEMODIALYSIS Respiratory Rate 16 08/07/2015 2:53 PM RN HEMODIALYSIS Oxygen Saturation 100% 08/07/2015 2:53 PM RN HEMODIALYSIS Inhaled Oxygen Concentration - - Weight 83.9 kg (185 lb) 08/07/2015 10:33 AM RN HEMODIALYSIS Height 177.8 cm (5' 10 ) 08/07/2015 10:33 AM RN HEMODIALYSIS Body Mass Index 26.54 08/07/2015 10:33 AM RN HEMODIALYSIS documented in this encounter Discharge Instructions * Discharge Instructions* Jonathan Soto MD - 08/07/2015 2:45 PM RN HEMODIALYSIS Eriberto Wei was seen in [facility] Emergency Department on 08/07/2015 by a Masters Level Clinician. Per the consulting psychiatrist, Dr. Jose Cruz Romano, Eriberto should Attend an Adult Intensive Outpatient. [place], [place] - [phone] Adult Mental Health/Dual 9:15AM - 1:15PM M-F [facility] (Chronic mental health care) 9:00AM - 12:30PM M-F Adolescent Mental Health/Dual 8:05AM - 12:45PM M-F Pediatric Mental Health 9:45AM - 1:30PM M-F [place], [place] - [phone] Adult Mental Health 8:30AM - 12:00PM M-F [facility] [phone] Adult Mental Health 9:30AM - 12:30PM , , F Adult Substance Abuse 8:30AM - 11:30AM , , Adult Crisis Management Group 1:00PM - 4:00PM , , [facility] [phone] Adult Mental Health [choose 3/week] 4:00-7:00PM (M, , , ) & 10:00AM-1:00PM (T, F) Adult Suboxone Program [choose 3/week] 4:00-7:00PM (M, Tu, W, Th) & 10:00AM- 1:00PM (T, F) Pediatric Mental Health [12 and under] 4:00PM - 7:00PM M, W, Th Adolescent Mental Health [Ages 13-17] 4:00PM - 7:00PM Tu, W, Th [facility] [phone] (Hwys 40 and 94) no program at this location, but they offer evaluations 20/12, and can enter you in any of the below outpatient locations [facility] [phone] Adult Medicare Program (Similar to Journeys) 9:30AM-12:30PM M, , Th, F [facility] [phone] Adolescent Mental Health/Dual [13-18 in HS] 5:30PM - 8:30PM M, , Th Adult Medicare Program (Similar to [facility]) 9:25AM - 12:30PM M-F [facility] [phone] Adult Mental Health/Dual [phone] 9:30AM - 12:30PM M-F Adult Chemical Dependency [phone] 6:00PM - 9:00PM M, , Th Adult Suboxone Program [phone] 9:30AM - 12:30PM M, Tu, W [facility] [phone] Adult Medicare Program (Similar to [facility]neys) 9:30AM - 12:30PM M-F [place] (Medicare Program for Seniors) 9:30AM - 12:30PM M, W, F Adolescent Mental Health/Dual [13-18 in HS] 5:00PM - 8:00PM M, , Th [phone] Adult Mental Health/Dual 9:30AM - 12:30PM M-F Adult Suboxone Program 9:30AM - 12:30PM M, Tu, W Adult Chemical Dependency/Dual 5:30PM - 8:30PM M, W, Th PTSD for Former 9:30AM - 12:30PM M, W, F CD Family Education ($50/family) 9:30AM - 1:30 PM 3rd Sat of month Family Support Group for MH (free) 6:30PM - 8:30PM 4 weeks (every Tue) [facility] - [phone] Adult Mental Health/Dual 9:10AM - 12:30PM M-F Adult Medicare Program (Similar to Journeys) 9:30AM - 12:30PM M-F Adolescent Mental Health/Dual [13-18 in HS] 5:00PM - 8:30PM , [facility] - [phone] Adult Mental Health/Dual 9:30AM - 12:30PM M-F Adult Medicare Program (Similar to Journeys) 9:30AM - 12:30PM M-F Adult Chemical Dependency/Dual 5:30PM - 8:30PM , Adult Suboxone Program 9:30AM - 12:30PM , , Adolescent Mental Health/Dual [13-18 in HS] 5:00PM - 8:30PM , [facility] OCD Support Group (individuals and families) 7:00PM Every Tuesday [place], [place] - [phone] or [phone], option 1 Adult Mental Health 9:30AM - 12:30PM M, , F [facility] - [phone] Adult Mental Health/Dual 9:00AM - 12:00PM M- [place] Program (Similar to Journeys) 10:00AM - 1:30PM M-F Senior Renewal 10:00AM - 1:30PM M-F [facility] - [phone] Adult Chemical Dependency 6:00 PM - 9:00PM [facility] ([place]) [phone] or [phone] ([facility] does not take Cigna) Adult Mental Health/Dual (Private Insurance Only) 9:00AM - 12:30 PM M-F Adult Transitional Care (Similar to Journeys) 9:30AM - 2:00PM M- [facility]. Mental Health [11-18 in HS] 4:00PM - 7:00PM or - Adult Chemical Dependency 5:00PM - 8:00PM -- [facility] [phone] ([facility] does not take Cigna) Adult Mental Health/Dual (Private Insurance Only) 9:00AM - 12:30PM M-F Adult Transitional Care (Similar to Journeys) 9:30AM - 2:00PM M-F [facility] [phone] ([facility] does not take Cigna) Adult Mental Health/Dual (Private Insurance Only) 9:00AM - 12:30PM M-F Adult Transitional Care (Similar to [facility]) 9:30AM - 2:00PM M-F [facility] [phone] Adult Mental Health/Dual 11:30AM - 3:30PM M-F Adult Chemical Dependency 6:00PM - 9:00PM Adolescent Mental Health [12-18 in ] 8:30AM - 12:30PM M-F Adult DBT Group 8:30AM - 12:00PM , [facility]- [phone] ([facility] does not take [employer]) [facility]/Adult Anxiety and OCD [age 9+] Must choose 3 of 6 sessions, program available M-Sat 10:00AM-12:00PM, 1:00-3:00PM or 3:00-5:00PM [facility] - [phone] ([facility] does not take [employer]) Adult Eating Disorder (6 days/week) M- 5:00-8:00PM, F 11:00AM-2:00PM, Sat 8:00-11:00AM Adolescent Eating Disorder (4 days/week) , , 5:00-8:00PM, Sat 9:00AM-12:00PM Should Eriberto have any concerns for safety, Eriberto is agreeable to contacting a trusted family member or friend, current providers, [facility] at the number listed below, any of the crisis lines below, 911 or going to the nearest Emergency Department. Suicide Prevention/Crisis Hotlines Call [facility] or [facility]) - Behavioral Health Intake Department [phone] [facility] Behavioral Health Intake Department is professionally staffed and offers free, confidential evaluations for anyone needing assistance with psychiatric and behavioral issues. Evaluations are available 24 hours a day, 7 days a week. [facility] [phone] ([phone]) [facility] is one of the nation???s [facility] suicide prevention and crisis hotlines. [facility] operates 24 hours/day. Behavioral Health Response (local) [phone] (toll free) [phone] Behavioral Health Response (R) is a professionally staffed crisis response service. [facility] provides expert behavioral health, crisis response, and outreach services throughout the state [facility], 24 hours a day, 7 days a week. /[facility] Suicide Hotline 9-867-404-TALK (3823) (Press 1) National Suicide Prevention Hotline 8-967-822-TALK (5087) 20/12 hotline available to anyone in suicidal crisis or emotional distress. Call will be routed to the nearest crisis center to you. National Hope-Line Network 3-954-JZJDXNK (905-8776) 20/12 hotline that connects people who are depressed or suicidal, or those who are concerned about someone they love, automatically to a CONTACT [facility] or [facility] certified crisis center. Crisis Text Line Just send a text message to ???524080?? Live, trained crisis counselors available 20/12 via text message. You???ll receive an automated textasking you what your crisis is and within minutes, a live trained crisis counselor will answer yourtext. They will help you out of a moment of crisis and work with you to create a plan to continue to feel better. [facility] (Kids Under Twenty-One) Crisis Helpline 0-783-275-GISELA (0011) The [facility] Crisis Helpline is a confidential telephone hotline available to any youth who may be in need of assistance, referral information, or crisis service. The [facility] Helpline is one of a handful ofhoines staffed exclusively by youth volunteers. LGBT Youth Suicide Hotline 6-830-9-U-EDUARD (508-035-1718) Crisis Nursery Help Line 211-219-9788 ([place]) [phone] ([place]) Kid Save 498-088-0856 Youth In Need 780-248-7408 Youth Emergency Service [phone] National [employer] Mental Illness (IV[facility] - [place]) [phone] SART (Sexual Assault Response Team) [phone] [facility] Sexual Assault Center [phone] ALIVE (Alternative to Living in Violent Environments) [phone] [employer] [facility] for Abused Women ([facility]) [phone] [facility] [phone] Please return to ED or call 911 for feelings of hurting yourself or others. Return to ED for worsening or persistent symptoms. HEMODIALYSIS documented in this encounter Medications at Time of Discharge Medication Sig Dispensed Refills Start Date End Date ALPRAZolam (XANAX) 0.5 mg tablet Take 1 Tablet (0.5 mg) by mouth 3 times daily as needed for Anxiety (Anxiety attack). 15 Tablet 0 08/07/2015 documented as of this encounter Progress Notes * Dc Calvert, ROLL TUBE SETTER - 08/07/2015 12:47 PM CST Eriberto Chau is a 25 y.o. male who presents for Behavioral Health intake evaluation at location of Emergency Department. Patient is accompanied by mother and information was obtained from parent and patient. Collateral information obtained: Yes Explain: Mother Name of Phone Circuit Operator/Primary Contact/Relationship/phone #: Meron Blankenship, Mother [phone] Release of Info Signed: yes Legal Custody: self (08/07/15 4192) Living Arrangements: Lives with family member(s) (08/07/15 1250) Current Living Situation: One-story home (08/07/15 125) Chief Complaint (Pt Report of Reason for Presentation): I just felt like can't catch my breath, wake up crying every day. Narrative Summary: Precipitating event(s)( past 24-72 hours leading to presentation to the hospital): For the past twomonths pt has been struggling with worsening depression and anxiety, Pt also reports some pari. Ptand mother indicate that pt cannot talk about his problems without getting mad because he does not know why it is happening to him. PT denies any SI/HI/Psychosis and denies any self injury. Pt motherwrote he has anxiety and bipolar, not taking meds. Has a stressful environment. Pt has two boys, 5 year old and 8 months (both mothers are listed as having drug problems). Pt and mother report thatwhen escalated he gets so upset that he begins vomiting. Pt reports Sleep disturbance;Increased irritability;Crying;Loss of interest;Change in energy level. Pt mother states pt gets mad when manic. Pt is verbally agressive to others that don't deserve it, tries to figure out how to emotionally hurtthem when angry. Pt mother states pt gets mad when manic. Pt is verbally agressive to others that don't deserve it, tries to figure out how to emotionally hurt them when angry. Triggers/stressors: Pt reports feeling like he just can't stand feeling this way anymore. Risk Assessment Patient was not positive for thoughts of harm to self/others. Explain: Current Suicidal Ideation: No suicidal ideation or behavior indicators observed or expressed. (08/07/15 125) Patient was not positive for history of previous suicide attempts Explain: Prior Suicide Attempts: SI only (08/07/151250) Patient was not positive for self-injurious behavior. Explain: Self-Injurious Behavior: No self injurious ideation or behavior indicators observed or expressed. (08/07/15 1251) Access to Firearms: none (08/07/15 125) If yes, plan to limit access NA Impairment in Functioning: severe HIGH RISK SUICIDE ASSESSMENT Patient agrees to participate in the risk assessment. Patient was not positive for suicide attempt. If positive, the following is an explanation of the attempt and surrounding circumstances:Not Applicable 1. If positive for a suicide attempt, ask ???How do you feel about the fact that your attempt was unsuccessful??? Eriberto responds: Not Applicable 2. When asked, ???Do you currently have any thoughts of wishing to be ??? or Wish you could go to sleep and not wake up? Eriberto replies: no (If yes, proceed with questions a-c. If no, proceed to question 3.) a. When asked, ???Do you currently have any thoughts of actually killing yourself??? Eriberto replies: No. b. When asked, ???Do you currently have a plan that you would use to commit suicide??? Eriberto replies: No. If yes, explain: Not Applicable c. When asked, ???Do you have access to your chosen method at home, guns in the home, medications, etc??? Eriberto replies:No. If yes, explain: Not Applicable 3. When asked, ???Are there circumstances that trigger suicidal thinking? (Loss of loved one, substance abuse, relationship problems, abuse, financial problems, health issues, hopelessness) Eriberto replies: yes. If yes, explain: In the past, had an attempt,. Can't remember what triggered. 4. When asked, ???Has anyone close to you ever attempted or were successful in an act of suicide? Eriberto responds: no. If yes, ???What were the circumstances, and how did you cope? (ie: their age, method used, your relationship to them, your age at the time): Not Applicable Knows Friend or Family Who Has Committed Suicide?: Brother had SI only, no attempt. (08/07/15 4681) 5. When asked, ???What are you hopeful for??? or ???Tell me about something you are looking forward to.?? Eriberto responds: Getting out of the hospital. Also food. 6. When asked, ???Do you feel like you have control over your situation, or any aspects of your life??? Eriberto responds: When mad, can't control himself, feels he can get violent, if brother tries to calm him down will probably punch him in the face. 7. The following protective factors were identified/reviewed with Eriberto during this shift: denies SI 8. The following safety plan was identified/reviewed by Eriberto during this shift: Denies SI. 9. Is Eriberto experiencing auditory hallucinations that command self harm? No During interview, Eriberto exhibits/relays the following signs of anxiety/agitation: (Based on the Bernstein Anxiety Scale) [] None [] Anxious mood (worries and anticipates the worst) [] Tension (startles easily, cries easily, restless, trembling) [] Insomnia (reports difficulty falling or staying asleep, nightmares) [] Difficulty concentrating, poor memory [x] Depressed mood, lack of interest, lack of pleasure in hobbies [] Tachycardia, palpitations, chest pain, sensation of feeling faint [] Choking sensation, Shortness of breath [] Dry mouth, flushing, pallor, sweating [] Fidgets, tremors, paces [] Displays high level of physical and/or verbal activity, calms down with instruction [] Displays high level of physical and/or verbal activity, not able to calm with Instructions. [] Violent [] Has a known history of violence. Current Treatment Involvement: Current mental health care providers/phone #: Dr. Sparks Current medical provider/phone #: None Past Treatment History: Number of prior hospitalizations: 1 age 19 Has patient been discharged from a hospital within the last 30 days:no List ALL Current Home Medications(per parent/caregiver report): None Family History of Mental Illness/Substance Abuse: denies Pertinent Psychosocial History: Employment Status: Employed Psychosocial Stressors: family issues Support System:single parent and extended family Patient is positive for substance abuse issues. Type of Other Chemicals Use (Chemical #1): Marijuana (08/07/151250) Amount/Frequency (Chemical #1): uknown amount, was daily (08/07/151250) Last Use (Chemical #1): 3 days prior. (08/07/151250) Type of Other Chemicals Use (Chemical #2): (denies) (08/07/151250) History of Withdrawal Symptoms: Denies past symptoms (08/07/151250) Substance Abuse Treatment Hx: Denies past history (08/07/151250) Mental Status Evaluation Appearance: Within normal limits (08/07/151250) Behavior: Cooperative (08/07/151250) Observed Emotional State: accepting;calm;cooperative;grieving;sad;overwhelmed (08/07/151250) Speech: clear (08/07/151250) Thought Processes: Alert;Organized;Coherent (08/07/151250) Social Judgement: Difficulty in problem solving (08/07/151250) Sensorium/Orientation:person, place, time/date and situation Cognition:average for level of education Quality of Sleep:poor with difficulty falling asleep, nightime awakenings, difficulty falling back asleep if awakened and especially when taking care of son, but seems to be easily woken. Current number of hours of sleep: 5 Changes in Appetite:no change from normal Special needs: Does patient have any special needs that require assistance, such as walker, wheelchair, CPAP, visual aids, hearing aids, urban sociologist services, etc? NA Patient Strengths: PT has supportive family Patient Weaknesses: Poor insight into symptoms and symptom management. Plan/Disposition: Referral to Intensive Outpatient Treatment. Referred Out. Pt has family in [facility] Consulting Physician: Dr. Jose Cruz Romano Attending Physician: GREG On-Call Psychiatrist: Dr. Jose Cruz Romano Hand-Off Report Given: not applicable [place] I: [F31.9] Bipolar Disorder, Unspecified [F41.0] Panic Disorder Without Agoraphobia [place] II: Deferred [place] III: none [place] IV: Problems related to social environment [place] V: 40 Legal Status: voluntarily Suicide Hotline Resources Provided: yes HEMODIALYSIS documented in this encounter ED Notes * Ana Lazo RN - 08/07/2015 2:59 PM CST Pt ate approx one third of tray, states he began feeling anxious. resting quietly in bed with mother at bs. HEMODIALYSIS * Ana Lazo RN - 08/07/2015 2:39 PM CST Lunch tray given to pt. HEMODIALYSIS * Ana Lazo RN - 08/07/2015 1:35 PM CST Lunch order faxed. HEMODIALYSIS * Ana Lazo RN - 08/07/2015 12:55 PM CST Behavior health at . HEMODIALYSIS * Ana Lazo RN - 08/07/2015 12:34 PM CST Pt provided warm blanket and remote for tv, mother remains at bs. * Ana Lazo RN - 08/07/2015 12:07 PM CST Patient/family has been informed about benefits and any potential clinically significant side effects or other concerns regarding the administration of the drug they have just been given. HEMODIALYSIS * Chung Zayas MD - 08/07/2015 11:19 AM CST HISTORY OF PRESENT ILLNESS Eriberto Chau, a 25 y.o. male presents to the ED with a Chief Complaint of Psychological Evaluation Subjective HPI Comments: Patient is 25 yo male with PMH depression, bipolar, and htn presents to the ED with feeling depressed for 2 months. He has not gone back to his psychiatrist for past 2 months because hewas not happy with treatment and felt he was puttting me on different medications every time he sees me. He has not been taking his HTN meds either. Pt denies SI/HI, but mother states he is crying daily. Patient repors he can't sleep, getting five hours of sleep a night . He denies plans to hurtanyone but says sometimes I want to punch them in the face. Pt reports having a 5yo and 18month child, mother states pt responsible for his child because mother is doing drugs, and this stresses him out. ?? Mother at bedside speaks frequently for pt, pt does not make eye contact, looking at ground. Mother at bs states she will step out of room if pt would feel more comfortable speaking with staff, pt states he is fine with her at bs. Pt reports episodes of severe anger as well. Pt states he is vomiting a lot over the last 4 weeks, pt states he doesn't know why this happens, but says it happens when he gets upset. He currently denies abdominal pain, nausea, diarrhea, constipation, chest pain, or SOB. Patient denies alcohol, smoking, or drug use, but mother says there is history of abusing pills. 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 HENT: Negative for facial swelling and sore throat. Eyes: Negative for pain. Respiratory: Negative for chest tightness, shortness of breath and wheezing. Cardiovascular: Negative for chest pain, palpitations and leg swelling. Gastrointestinal: Positive for vomiting. Negative for nausea, abdominal pain, diarrhea, constipation, abdominal distention and anal bleeding. Genitourinary: Negative for dysuria. Musculoskeletal: Negative for back pain, arthralgias, neck pain and neck stiffness. Skin: Negative for rash. Neurological: Negative for dizziness and numbness. Psychiatric/Behavioral: Positive for behavioral problems and agitation. Negative for suicidal ideas, hallucinations and confusion. All other systems reviewed and are negative. PAST MEDICAL HISTORY REVIEWED MEDICAL: Patient has a past medical history of Bipolar affective disorder and HTN (hypertension). SURGICAL: Patient has past surgical history that includes pt denies relevant surgical history. FAMILY: Patient's family history is not on file. SOCIAL: reports that he has never smoked. He does not have any smokeless tobacco history on file. He reports that he does not drink alcohol or use illicit drugs. No history on file. Social History Other Topics Concern ??? Not on file PROBLEM LIST: Patient does not have a problem list on file. ALLERGIES Review of patient's allergies indicates no known allergies. HOME MEDICATIONS Discharge Medication List as of 08/07/2015 2:46 PM START taking these medications Details ALPRAZolam (XANAX) 0.5 mg tablet Take 1 Tablet (0.5 mg) by mouth 3 times daily as needed for Anxiety (Anxiety attack)., Disp-15 Tablet, R-0 Objective PHYSICAL EXAM INITIAL VS BP: (!) 141/84 mmHg (08/07/15 1033), Heart Rate: 58 bpm (08/07/151032), Resp: 18 (08/07/151032), Temp: 98 ??F (36.7 ??C) (08/07/151032), Temp src: Oral (08/07/151032), SpO2: 98 % (08/07/151032),Height: 5' 10 (177.8 cm) (08/07/151032), Weight: 83.915 kg (185 lb) (08/07/151032), BMI (Calculated): 26.6 (08/07/151032) No LMP for male patient. Physical Exam Constitutional: He is oriented to person, place, and time. He appears well- developed and well-nourished. No distress. HENT: Head: Normocephalic and atraumatic. Eyes: Conjunctivae are normal. Pupils are equal, round, and reactive to light. Neck: Normal range of motion. Neck supple. Cardiovascular: Normal rate, regular rhythm, normal heart sounds and intact distal pulses. No murmur heard. Pulmonary/Chest: Effort normal and breath sounds normal. No respiratory distress. He has no wheezes. Abdominal: Soft. He exhibits no distension. There is no tenderness. There is no rebound and no guarding. Neurological: He is alert and oriented to person, place, and time. Skin: Skin is warm and dry. No rash noted. He is not diaphoretic. Psychiatric: Denies SI or HI, but states he sometimes wants to punch people in the face. Endorses feeling very depressed and crying daily. He denies hallucinations or delusions. Makes poor eye contact, gives short 1-2 word answers. Closed body language. Nursing note and vitals reviewed. DIAGNOSTICS LAB: Labs this ED Encounter CBC WITH DIFFERENTIAL - Normal WBC 7.7 RBC 4.70 HEMOGLOBIN 15.1 HEMATOCRIT 44.8 MCV 95.3 MCH 32.1 MCHC 33.7 RDW 13.1 RDW-STDEV 45.9 PLATELETS 234 MPV 10.3 NEUTROPHILS 64 LYMPHOCYTES 26 MONOCYTES 10 EOSINOPHILS 0 BASOPHILS 0 NEUTROPHIL ABSOLUTE 4.94 LYMPHOCYTE ABSOLUTE 1.99 MONOCYTE ABSOLUTE 0.75 EOSINOPHIL ABSOLUTE 0.03 BASOPHILS ABSOLUTE 0.02 COMPREHENSIVE METABOLIC PANEL - Normal SODIUM 141 POTASSIUM 4.1 CHLORIDE 102 CO2 24 CALCIUM 9.7 BUN 10 CREATININE 0.76 GLUCOSE 87 TOTAL PROTEIN 8.3 ALBUMIN 5.1 BILIRUBIN TOTAL 0.7 ALKALINE PHOSPHATASE 67 AST 15 ALT 15 GFR >60 GFR, >60 ANION GAP 15 LIPASE - Normal LIPASE 31 TSH - Normal TSH 2.20 RADIOLOGY: No orders to display EKG: PROCEDURES Procedures MEDICAL DECISION MAKING AND PLAN OF CARE Patient 25yo hx of depression, bipolar, htn off medications reports feeling depressed for 2 months and not following with current outpatient psychiatrist. Denies SI and HI. Psych counselor rec iop Attending note: I have seen and examined the patient and discussed with the resident and have reviewed their assessment and plan as well as their documentation/note and I am in agreement. Plan rx xanax REEVALUATION Patient see by psych counselor. Recommends referral to intensive outpatient treatment. Will discharge to follow up with IOP. Will discharge with Xanax prn for breakthrough anxiety attacks until seen by IOP. Patient appropriate at discharge and denies SI or HI. CASE DISCUSSED Medications Administered During the ED Stay from 08/07/2015 1028 to 08/09/2015 0000 Date/Time Order Dose Route Action 08/07/2015 1255 sodium chloride 0.9% bolus solution 1,000 mL 0 mL IV Stopped 08/07/2015 1207 sodium chloride 0.9% bolus solution 1,000 mL 1,000 mL IV New Bag Discharge Medication List as of 08/07/2015 2:46 PM START taking these medications Details ALPRAZolam (XANAX) 0.5 mg tablet Take 1 Tablet (0.5 mg) by mouth 3 times daily as needed for Anxiety (Anxiety attack)., Disp-15 Tablet, R-0 LAST VS BP: (!) 142/100 mmHg (08/07/15 1453), Heart Rate: 51 bpm (08/07/15 1453), Resp: 16 (08/07/15 1453),Temp: 98 ??F (36.7 ??C) (08/07/15 1033), Temp src: Oral (08/07/15 1033), SpO2: 100 % (08/07/15 1453) CLINICAL IMPRESSION Final diagnoses: [F32.9] Depressed mood (Primary) CODING MDM Coding Reviewed: vitals and previous chart Interpretation: labs I have reviewed nursing notes and agree unless otherwise mentioned. Consults: psychiatry DISPOSITION, EDUCATION AND MEDICATION RECONCILIATION Medications reconciled. See after visit summary for patient education on discharged patients. ATTESTATION STATEMENTS HEMODIALYSIS * Ana Lazo, BRIA - 08/07/2015 11:05 AM CST Pt reports depression x 2 months, with hx bipolar a few years ago, did not go to last appt with psychiatrist b/c was not happy with treatment plan and med changes puttting me on different medications every time he sees me , as a result has been out of meds for the past month. Pt denies SI/HI, states I wake up crying and I can't stop , pt states he only is eating once a day , can't sleep getting five hours of sleep a night . Pt reports having a 5yo and 18month child, mother states pt responsible for his child because mother is doing drugs, and this stresses him out. Mother at bs speaks frequently for pt, pt does not make eye contact, looking at ground. Mother at bs states she will step out of room if pt would feel more comfortable speaking with staff, pt states he is fine with her atbs. Pt reports episodes of severe anger as well. Pt states he is vomiting a lot over the last 4 weeks, pt states he doesn't know why this happens, but mother at bs states he gets very upset and tearful. Pt calm and cooperative, tearful at times. Mom at bs, poc explained. HEMODIALYSIS * Sidney Maldonado - 08/07/2015 10:43 AM CST Patient was changed into blue scrubs. Patient belongings that were collected, bagged, labelled, andplaced into locker W-4 included:Blue sweat pants, sweatshirt,black/red shoes, and black t-shirt. Back door and garage were secured. Patient was cooperative. Mother at bedside. HEMODIALYSIS documented in this encounter Plan of Treatment Not on file documented as of this encounter Procedures Procedure Name Priority Date/Time Associated Diagnosis Comments CBC WITH DIFFERENTIAL Stat 08/07/2015 12:10 PM RN HEMODIALYSIS TSH Stat 08/07/2015 12:10 PM RN HEMODIALYSIS LIPASE Stat 08/07/2015 12:10 PM RN HEMODIALYSIS COMPREHENSIVE METABOLIC PANEL Stat 08/07/2015 12:10 PM RN HEMODIALYSIS documented in this encounter Results * TSH (08/07/2015 12:10 PM RN HEMODIALYSIS) TSH 2.20 0.27 - 4.20 uIU/mL 08/07/2015 1:30 PM RN HEMODIALYSIS [facility] Blood Collection / Unknown 08/07/2015 12:10 PM RN HEMODIALYSIS 08/07/2015 12:18 PM RN HEMODIALYSIS Chung Zayas MD CHEMISTRY ORDERABLES Performing Organization Address [facility]/ZIP Co de Phone Number [facility] CLIA# [id number] [address] [facility] [place] [address] * LIPASE (08/07/2015 12:10 PM RN HEMODIALYSIS) Pathologist [facility] LIPASE 31 13 - 60 U/L 08/07/2015 1:02 PM RN HEMODIALYSIS [facility] [employer] [facility] Blood Collection / Unknown 08/07/2015 12:10 PM RN HEMODIALYSIS 08/07/2015 12:18 PM RN HEMODIALYSIS Chung Zayas MD CHEMISTRY ORDERABLES Performing Organization Address [facility]/ZIP Co de Phone Number [facility] [employer] [facility]# [id number] [address] [facility] [address] [facility] [place] [address] * COMPREHENSIVE METABOLIC PANEL (08/07/2015 12:10 PM RN HEMODIALYSIS) Pathologist [facility] SODIUM 141 136 - 145 mmol/L 08/07/2015 1:02 PM RN HEMODIALYSIS [facility] POTASSIUM 4.1 3.5 - 5.0 mmol/L 08/07/2015 1:02 PM RN HEMODIALYSIS [facility] CHLORIDE 102 98 - 107 mmol/L 08/07/2015 1:02 PM [employer] [facility] CO2 24 22 - 29 mmol/L 08/07/2015 1:02 PM [employer] [facility] CALCIUM 9.7 8.6 - 10.2 mg/dL 08/07/2015 1:02 PM [employer] [facility] BUN 10 6 - 20 mg/dL 08/07/2015 1:02 PM [employer] [facility] CREATININE 0.76 0.67 - 1.17 mg/dL 08/07/2015 1:02 PM [employer] [facility] GLUCOSE 87 79 - 99 mg/dL 08/07/2015 1:02 PM [employer] [facility] TOTAL PROTEIN 8.3 6.7 - 8.6 g/dL 08/07/2015 1:02 PM [employer] [facility] ALBUMIN 5.1 3.5 - 5.2 g/dL 08/07/2015 1:02 PM [employer] [facility] BILIRUBIN TOTAL 0.7 0.3 - 1.2 mg/dL 08/07/2015 1:02 PM [employer] [facility] ALKALINE PHOSPHATASE 67 40 - 129 U/L 08/07/2015 1:02 PM [employer] [facility] AST 15 <41 U/L 08/07/2015 1:02 PM [employer] [facility] ALT 15 <42 U/L 08/07/2015 1:02 PM [employer] [facility] GFR >60 >=60 mL/min/1.7 3 sq meter 08/07/2015 1:02 PM [employer] [facility] Comment: eGFR has not been validated for use in the elderly (> 70 years of age), women, patients with serious co-morbid conditions, or persons with extremes of body size or muscle mass and should also be interpreted with caution in patients with acute kidney failure, dialysis dependent patients, patients reporting exceptional dietary intake (e.g. vegetarian diet, high protein diets, creatine supplementation), and patients with severe liver disease. Based on National Kidney Disease Education Program If patient is , please refer to the GFR result. GFR, >60 >=60 mL/min/1.7 3 sq meter 08/07/2015 1:02 PM [facility] [employer] [facility]AT[facility] ANION GAP 15 8 - 16 mmol/L 08/07/2015 1:02 PM [facility] [employer] [facility] Blood Collection / Unknown 08/07/2015 12:10 PM RN HEMODIALYSIS 08/07/2015 12:18 PM RN HEMODIALYSIS Chung Zayas MD CHEMISTRY ORDERABLES [employer] SERVICES - [facility] CLIA# [id number] [address] [place] [address] * CBC WITH DIFFERENTIAL (08/07/2015 12:10 PM [facility]) WBC 7.7 4.0 - 9.8 K/uL 08/07/2015 12:31 PM [facility] [employer] [facility] RBC 4.70 4.50 - 5.40 M/uL 08/07/2015 12:31 PM [employer] [facility] HEMOGLOBIN 15.1 13.6 - 16.5 g/dL 08/07/2015 12:31 PM [employer] [facility] HEMATOCRIT 44.8 40.0 - 48.0 % 08/07/2015 12:31 PM RN HEMODIALYSIS [employer] [facility] MCV 95.3 82.0 - 99.0 fL 08/07/2015 12:31 PM [employer] [facility] MCH 32.1 27.2 - 32.6 pg 08/07/2015 12:31 PM [employer] [facility] MCHC 33.7 31.5 - 35.5 g/dL 08/07/2015 12:31 PM [employer] [facility] RDW 13.1 11.5 - 14.5 % 08/07/2015 12:31 PM [employer] [facility] RDW-STDEV 45.9 37.1 - 48.7 fL 08/07/2015 12:31 PM [employer] [facility] PLATELETS 234 140 - 350 K/uL 08/07/2015 12:31 PM [employer] [facility] MPV 10.3 9.3 - 12.4 fL 08/07/2015 12:31 PM [facility] [employer] [facility] NEUTROPHILS 64 45 - 70 % 08/07/2015 12:31 PM [facility] [employer] [facility] LYMPHOCYTES 26 16 - 45 % 08/07/2015 12:31 PM [facility] MONOCYTES 10 3 - 13 % 08/07/2015 12:31 PM [facility] EOSINOPHILS 0 <=7 % 08/07/2015 12:31 PM [facility] [employer] [facility] BASOPHILS 0 <3 % 08/07/2015 12:31 PM [facility] [employer] [facility] NEUTROPHIL ABSOLUTE 4.94 1.90 - 7.00 K/uL 08/07/2015 12:31 PM [facility] [employer] [facility] LYMPHOCYTE ABSOLUTE 1.99 0.70 - 4.50 K/uL 08/07/2015 12:31 PM [facility] [employer] LABORATORY [facility] MONOCYTE ABSOLUTE 0.75 0.10 - 1.30 K/uL 08/07/2015 12:31 PM [facility] [employer] [facility] EOSINOPHIL ABSOLUTE 0.03 <0.70 K/uL 08/07/2015 12:31 PM [facility] [employer] [facility] BASOPHILS ABSOLUTE 0.02 <=0.20 K/uL 08/07/2015 12:31 PM [facility] [employer] [facility] Blood Collection / Unknown 08/07/2015 12:10 PM RN HEMODIALYSIS 08/07/2015 12:18 PM RN HEMODIALYSIS Chung Zayas MD HEMATOLOGY ORDERABLE S [facility] [employer] SERVICES - [facility] CLIA# [id number] [address] [place] [address] documented in this encounter Visit Diagnoses Diagnosis Depressed mood- Primary documented in this encounter Administered Medications Inactive Administered Medications - up to 3 most recent administrations Medication Order MAR Action Action Date Dose Rate Site sodium chloride 0.9% bolus solution 1,000 mL 1,000 mL, IV, ONE TIME ONLY, 1 dose, On Catarina 08/07/15 at 1145, at 2,000 mL/hr, Administer over 30 Minutes, Routine New Bag 08/07/2015 12:07 PM RN HEMODIALYSIS 1,000 mL 2000 mL/hr documented in this encounter Active and Recently Administered Medications Times are shown in RN HEMODIALYSIS. Scheduled Medication Order 08/05/2015 08/06/2015 08/07/2015 sodium chloride 0.9% bolus solution 1,000 mL (COMPLETED) 1,000 mL, IV, ONE TIME ONLY, 1 dose, On Catarina 08/07/15 at 1145, at 2,000 mL/hr, Administer over 30 Minutes, Routine 1207 (New Bag - Prov ider: Ana Lazo, BRIA)1237 (Due: Stopped - Provider: Ana Lazo, RN)1255 (Stopped - Provider: Ana Lazo, RN) documented in this encounter Care Teams Event Marketing Representative Relationship Specialty Start Date End Date [facility], External Provider [address] [place] [address] PCP - General 08/07/15 documented as of this encounter
--- OUTSIDE RECORDS SUMMARY | 2024-05-30 06:25 | XMS_ITS | Encounter Summary ---
Author Organization [employer] Address [address] [place] [address] Care Team Providers Care Shoe Dyer Name Role Phone [facility], External Provider Primary Care Provider U navailable [...] Fernando t Referred To Contact Emergency Medicine [facility] Emergency Dept [address] [place] [address] Referral ID Status Reason Start Date Expiration Date Visits Re quested Visits Authorized [id number] 08/07/2015 09/06/2016 1 Encounter Details Date Type Department Care Team (Late st Contact Info) Description 08/07/2015 10:40 AM AGRICULTURAL PRODUCE WASHER - 08/07/2015 3:01 PM [facility] Emergency [facility] Emergency Department [address] [place] [address] Chung Zayas MD [address] [place] [address] Depressed mood (Primary Dx) Discharge [...] Comments Blood Pressure 142/100 08/07/2015 2:53 PM AGRICULTURAL PRODUCE WASHER Pulse - - Temperature 36.7 ??C (98 ??F) 08/07/2015 10:33 AM AGRICULTURAL PRODUCE WASHER Respiratory Rate 16 08/07/2015 2:53 PM AGRICULTURAL PRODUCE WASHER Oxygen Saturation 100% 08/07/2015 2:53 PM AGRICULTURAL PRODUCE WASHER Inhaled Oxygen Concentration - - Weight 83.9 kg (185 lb) 08/07/2015 10:33 AM AGRICULTURAL PRODUCE WASHER Height 177.8 cm (5' 10 ) 08/07/2015 10:33 AM AGRICULTURAL PRODUCE WASHER Body Mass Index 26.54 08/07/2015 10:33 AM AGRICULTURAL PRODUCE WASHER documented in this encounter Discharge Instructions * Discharge Instructions* Jonathan Soto MD - 08/07/2015 2:45 PM AGRICULTURAL PRODUCE WASHER Eriberto Wei was seen in [facility]'s Emergency Department on 08/07/2015 by a Masters Level Clinician. Per the consulting psychiatrist, Dr. Jose Cruz Romano, Eriberto should Attend an Adult Intensive Outpatient. [place], [place] - [phone] Adult Mental Health/Dual 9:15AM - 1:15PM M-F [facility] Program (Chronic mental health care) 9:00AM - 12:30PM M-F Adolescent Mental Health/Dual 8:05AM - 12:45PM M-F Pediatric Mental Health 9:45AM - 1:30PM M-F [place], [place] - [phone] Adult Mental Health 8:30AM - 12:00PM M-F [facility] [phone] Adult Mental Health 9:30AM - 12:30PM , , F Adult Substance Abuse 8:30AM - 11:30AM , , Adult Crisis Management Group 1:00PM - 4:00PM , , F [facility] [phone] Adult Mental Health [choose 3/week] 4:00-7:00PM (M, , , ) & 10:00AM-1:00PM (T, F) Adult Suboxone Program [choose 3/week] 4:00-7:00PM (M, Tu, W, Th) & 10:00AM- 1:00PM (T, F) Pediatric Mental Health [12 and under] 4:00PM - 7:00PM M, W, Th Adolescent Mental Health [Ages 13-17] 4:00PM - 7:00PM Tu, W, Th [facility] [phone] (Hwys 40 and 94) no program at this location, but they offer evaluations 20/12, and can enter you in any of the below outpatient locations [facility] [phone] Adult Medicare Program (Similar to Journeys) 9:30AM-12:30PM M, , Th, F [facility] [phone] Adolescent Mental Health/Dual [13-18 in HS] 5:30PM - 8:30PM M, , Th Adult Medicare Program (Similar to Journeys) 9:25AM - 12:30PM M-F [facility] [phone] Adult Mental Health/Dual [phone] 9:30AM - 12:30PM M-F Adult Chemical Dependency [phone] 6:00PM - 9:00PM M, , Th Adult Suboxone Program [phone] 9:30AM - 12:30PM M, Tu, W [facility] [phone] Adult Medicare Program (Similar to Journeys) 9:30AM - 12:30PM M-F [place] [facility] (Medicare Program for Seniors) 9:30AM - 12:30PM M, W, F Adolescent Mental Health/Dual [13-18 in HS] 5:00PM - 8:00PM M, , Th [phone] Adult Mental Health/Dual 9:30AM - 12:30PM M-F Adult Suboxone Program 9:30AM - 12:30PM M, Tu, W Adult Chemical Dependency/Dual 5:30PM - 8:30PM M, W, Th PTSD for Former 9:30AM - 12:30PM M, W, F CD Family Education ($50/family) 9:30AM - 1:30 PM 3rd Sat of month Family Support Group for MH (free) 6:30PM - 8:30PM 4 weeks (every Tue) [facility] - [phone] Adult Mental Health/Dual 9:10AM - 12:30PM M-F Adult Medicare Program (Similar to Journeys) 9:30AM - 12:30PM M-F Adolescent Mental Health/Dual [13-18 in HS] 5:00PM - 8:30PM , [facility] - [phone] Adult Mental Health/Dual 9:30AM - 12:30PM M-F Adult Medicare Program (Similar to Journeys) 9:30AM - 12:30PM M-F Adult Chemical Dependency/Dual 5:30PM - 8:30PM , Adult Suboxone Program 9:30AM - 12:30PM , , Adolescent Mental Health/Dual [13-18 in HS] 5:00PM - 8:30PM , [facility] OCD Support Group (individuals and families) 7:00PM Every Tuesday [place], [place] - [phone] or [phone], option 1 Adult Mental Health 9:30AM - 12:30PM M, , F [facility] - [phone] Adult Mental Health/Dual 9:00AM - 12:00PM M- [place] Program (Similar to Journeys) 10:00AM - 1:30PM M-F Senior Renewal 10:00AM - 1:30PM M-F [facility] - [phone] Adult Chemical Dependency 6:00 PM - 9:00PM [facility] [phone] or [phone] ([facility] does not take Cigna) Adult Mental Health/Dual (Private Insurance Only) 9:00AM - 12:30 PM M-F Adult Transitional Care (Similar to Journeys) 9:30AM - 2:00PM M- [facility]. Mental Health [11-18 in HS] 4:00PM - 7:00PM or - Adult Chemical Dependency 5:00PM - 8:00PM -- [facility] [phone] ([facility] does not take Cigna) Adult Mental Health/Dual (Private Insurance Only) 9:00AM - 12:30PM M-F Adult Transitional Care (Similar to Journeys) 9:30AM - 2:00PM M-F [facility] [phone] ([facility] does not take Cigna) Adult Mental Health/Dual (Private Insurance Only) 9:00AM - 12:30PM M-F Adult Transitional Care (Similar to Journeys) 9:30AM - 2:00PM M-F [facility]) [phone] Adult Mental Health/Dual 11:30AM - 3:30PM M-F Adult Chemical Dependency 6:00PM - 9:00PM Adolescent Mental Health [12-18 in ] 8:30AM - 12:30PM M-F Adult DBT Group 8:30AM - 12:00PM , [facility]- [phone] ([facility] does not take [employer]) Adol/Adult Anxiety and OCD [age 9+] Must choose 3 of 6 sessions, program available M-Sat 10:00AM-12:00PM, 1:00-3:00PM or 3:00-5:00PM [facility] - [phone] ([facility] does not take [employer]) Adult Eating Disorder (6 days/week) M- 5:00-8:00PM, F 11:00AM-2:00PM, Sat 8:00-11:00AM Adolescent Eating Disorder (4 days/week) , , 5:00-8:00PM, Sat 9:00AM-12:00PM Should Eriberto have any concerns for safety, Eriberto is agreeable to contacting a trusted family member or friend, current providers, [facility] at the number listed below, any of the crisis lines below, 911 or going to the nearest Emergency Department. Suicide Prevention/Crisis Hotlines Call [facility] or [facility]) - Behavioral Health Intake Department [phone] [facility] Behavioral Health Intake Department is professionally staffed and offers free, confidential evaluations for anyone needing assistance with psychiatric and behavioral issues. Evaluations are available 24 hours a day, 7 days a week. [facility] 211-737-RMOD ([phone]) [facility] is one of the nation???s [facility] suicide prevention and crisis hotlines. [facility] operates 24 hours/day. Behavioral Health Response (local) [phone] (toll free) [phone] Behavioral Health Response (R) is a professionally staffed crisis response service. [facility] provides expert behavioral health, crisis response, and outreach services throughout the state [facility], 24 hours a day, 7 days a week. /[facility] Suicide Hotline 2-447-896-TALK (7396) (Press 1) National Suicide Prevention Hotline 3-870-089-TALK (0946) 20/12 hotline available to anyone in suicidal crisis or emotional distress. Call will be routed to the nearest crisis center to you. National Hope-Line Network 2-709-RIPRJAV (386-4188) 20/12 hotline that connects people who are depressed or suicidal, or those who are concerned about someone they love, automatically to a CONTACT [facility] or [facility] certified crisis center. Crisis Text Line Just send a text message to ???369444?? Live, trained crisis counselors available 20/12 via text message. You???ll receive an automated textasking you what your crisis is and within minutes, a live trained crisis counselor will answer yourtext. They will help you out of a moment of crisis and work with you to create a plan to continue to feel better. [facility] (Kids Under Twenty-One) Crisis Helpline 1-832-022-GISELA (5847) The [facility] Crisis Helpline is a confidential telephone hotline available to any youth who may be in need of assistance, referral information, or crisis service. The [facility] Helpline is one of a handful ofhoines staffed exclusively by youth volunteers. LGBT Youth Suicide Hotline 6-754-5-U-EDUARD (495-735-9331) Crisis Nursery Help Line 593-242-7408 ([place]) 665.103.4788 ([place]) Kid Save 251-419-4819 Youth In Need 383-724-7607 Youth Emergency Service [phone] National [place] on Mental Illness (IVORY - [place]) [phone] SART (Sexual Assault Response Team) [phone] [facility] Sexual [facility]ault [facility] [phone] ALIVE (Alternative to Living in Violent Environments) [phone] Legal [employer]ocates for Abused Women (LAAW) [phone] [facility] [phone] Please return to ED or call 911 for feelings of hurting yourself or others. Return to ED for worsening or persistent symptoms. CULTURAL PRODUCE WASHER documented in this encounter Medications at Time of Discharge Medication Sig Dispensed Refills Start Date End Date ALPRAZolam (XANAX) 0.5 mg tablet Take 1 Tablet (0.5 mg) by mouth 3 times daily as needed for Anxiety (Anxiety attack). 15 Tablet 0 08/07/2015 documented as of this encounter Progress Notes * Dc Calvert, CARDROOM ATTENDANT - 08/07/2015 12:47 PM CST Eriberto Chau is a 25 y.o. male who presents for Behavioral Health intake evaluation at location of Emergency Department. Patient is accompanied by mother and information was obtained from parent and patient. Collateral information obtained: Yes Explain: Mother Name of Fountain Waitress/Waiter/Primary Contact/Relationship/phone #: Meron Blankenship, Mother [phone] Release of Info Signed: yes Legal Custody: self (08/07/15 4835) Living Arrangements: Lives with family member(s) (08/07/15 [...] Brother had SI only, no attempt. (08/07/15 8321) 5. When asked, ???What are you hopeful [...] walker, wheelchair, CPAP, visual aids, hearing aids, rotary filter operator services, etc? NA Patient Strengths: PT has supportive family Patient Weaknesses: Poor insight into symptoms and symptom management. Plan/Disposition: Referral to Intensive Outpatient Treatment. Referred Out. Pt has family in [facility] Consulting Physician: Dr. Jose Cruz Romano Attending Physician: GREG On-Call Psychiatrist: Dr. Jose Cruz Romano Hand-Off Report Given: not applicable [place] I: [F31.9] Bipolar Disorder, Unspecified [F41.0] Panic Disorder Without Agoraphobia [place] II: Deferred [place] III: none [place] IV: Problems related to social environment [place] V: 40 Legal Status: voluntarily Suicide Hotline Resources Provided: yes CULTURAL PRODUCE WASHER documented in this encounter ED Notes * Ana Lazo RN - 08/07/2015 2:59 PM CST Pt ate approx one third of tray, states he began feeling anxious. resting quietly in bed with mother at bs. CULTURAL PRODUCE WASHER * Ana Lazo RN - 08/07/2015 2:39 PM CST Lunch tray given to pt. CULTURAL PRODUCE WASHER * Ana Lazo RN - 08/07/2015 1:35 PM CST Lunch order faxed. CULTURAL PRODUCE WASHER * Ana Lazo RN - 08/07/2015 12:55 PM CST Behavior health at . CULTURAL PRODUCE WASHER * Ana Lazo RN - 08/07/2015 12:34 PM CST Pt provided warm blanket and remote for tv, mother remains at bs. * Ana Lazo RN - 08/07/2015 12:07 PM CST Patient/family has been informed about benefits and any potential clinically significant side effects or other concerns regarding the administration of the drug they have just been given. CULTURAL PRODUCE WASHER * Chung Zayas MD - 08/07/2015 11:19 [...] provided by: The patient and the mother envelope maker used: No Psychological Evaluation Severity: Moderate Onset [...] patient education on discharged patients. ATTESTATION STATEMENTS CULTURAL PRODUCE WASHER * Ana Lazo, BRIA - 08/07/2015 11:05 [...] at times. Mom at bs, poc explained. CULTURAL PRODUCE WASHER * Sidney Maldonado - 08/07/2015 10:43 AM CST Patient was changed into blue scrubs. Patient belongings that were collected, bagged, labelled, andplaced into locker W-4 included:Blue sweat pants, sweatshirt,black/red shoes, and black t-shirt. Back door and garage were secured. Patient was cooperative. Mother at bedside. CULTURAL PRODUCE WASHER documented in this encounter Plan of Treatment Not on file documented as of this encounter Procedures Procedure Name Priority Date/Time Associated Diagnosis Comments CBC WITH DIFFERENTIAL Stat 08/07/2015 12:10 PM AGRICULTURAL PRODUCE WASHER TSH Stat 08/07/2015 12:10 PM AGRICULTURAL PRODUCE WASHER LIPASE Stat 08/07/2015 12:10 PM AGRICULTURAL PRODUCE WASHER COMPREHENSIVE METABOLIC PANEL Stat 08/07/2015 12:10 PM AGRICULTURAL PRODUCE WASHER documented in this encounter Results * TSH (08/07/2015 12:10 PM AGRICULTURAL PRODUCE WASHER) TSH 2.20 0.27 - 4.20 uIU/mL 08/07/2015 1:30 PM AGRICULTURAL PRODUCE WASHER [facility] Blood Collection / Unknown 08/07/2015 12:10 PM AGRICULTURAL PRODUCE WASHER 08/07/2015 12:18 PM AGRICULTURAL PRODUCE WASHER Chung Zayas MD CHEMISTRY ORDERABLES Performing Organization Address [facility]/ZIP Co de Phone Number [facility] CLIA# [id number] [address] [facility] [place] [address] * LIPASE (08/07/2015 12:10 PM AGRICULTURAL PRODUCE WASHER) Pathologist [facility] LIPASE 31 13 - 60 U/L 08/07/2015 1:02 PM AGRICULTURAL PRODUCE WASHER [facility] [employer] [facility] Blood Collection / Unknown 08/07/2015 12:10 PM AGRICULTURAL PRODUCE WASHER 08/07/2015 12:18 PM AGRICULTURAL PRODUCE WASHER Chung Zayas MD CHEMISTRY ORDERABLES Performing Organization Address [facility]/ZIP Co de Phone Number [facility] [employer] [id number] [address] [facility] [address] [facility] [place] [address] * COMPREHENSIVE METABOLIC PANEL (08/07/2015 12:10 PM AGRICULTURAL PRODUCE WASHER) Pathologist [facility] SODIUM 141 136 - 145 mmol/L 08/07/2015 1:02 PM AGRICULTURAL PRODUCE WASHER [facility] POTASSIUM 4.1 3.5 - 5.0 mmol/L 08/07/2015 1:02 PM AGRICULTURAL PRODUCE WASHER [facility] CHLORIDE 102 98 - 107 mmol/L 08/07/2015 1:02 PM [facility] CO2 24 22 - 29 mmol/L 08/07/2015 1:02 PM [facility] CALCIUM 9.7 8.6 - 10.2 mg/dL 08/07/2015 1:02 PM [facility] BUN 10 6 - 20 mg/dL 08/07/2015 1:02 PM [facility] CREATININE 0.76 0.67 - 1.17 mg/dL 08/07/2015 1:02 PM [facility] GLUCOSE 87 79 - 99 mg/dL 08/07/2015 1:02 PM [facility] TOTAL PROTEIN 8.3 6.7 - 8.6 g/dL 08/07/2015 1:02 PM [facility] ALBUMIN 5.1 3.5 - 5.2 g/dL 08/07/2015 1:02 PM [facility] BILIRUBIN TOTAL 0.7 0.3 - 1.2 mg/dL 08/07/2015 1:02 PM [facility] ALKALINE PHOSPHATASE 67 40 - 129 U/L 08/07/2015 1:02 PM [facility] AST 15 <41 U/L 08/07/2015 1:02 PM [facility] ALT 15 <42 U/L 08/07/2015 1:02 PM [facility] GFR >60 >=60 mL/min/1.7 3 sq meter 08/07/2015 1:02 PM [facility] Comment: eGFR [...] mL/min/1.7 3 sq meter 08/07/2015 1:02 PM [facility] [employer] [facility] ANION GAP 15 8 - 16 mmol/L 08/07/2015 1:02 PM [facility] [employer] [facility] Blood Collection / Unknown 08/07/2015 12:10 PM AGRICULTURAL PRODUCE WASHER 08/07/2015 12:18 PM AGRICULTURAL PRODUCE WASHER Chung Zayas MD CHEMISTRY ORDERABLES [employer] SERVICES - [facility] CLIA# [id number] [address] [place] [address] * CBC WITH DIFFERENTIAL (08/07/2015 12:10 PM [facility]) WBC 7.7 4.0 - 9.8 K/uL 08/07/2015 12:31 PM [facility] [employer] [facility]ATORY [facility] - [facility] RBC 4.70 4.50 - 5.40 M/uL 08/07/2015 12:31 PM [facility] HEMOGLOBIN 15.1 13.6 - 16.5 g/dL 08/07/2015 12:31 PM [facility] HEMATOCRIT 44.8 40.0 - 48.0 % 08/07/2015 12:31 PM AGRICULTURAL PRODUCE WASHER [employer] [facility] MCV 95.3 82.0 - 99.0 fL 08/07/2015 12:31 PM [facility] MCH 32.1 27.2 - 32.6 pg 08/07/2015 12:31 PM [facility] MCHC 33.7 31.5 - 35.5 g/dL 08/07/2015 12:31 PM [facility] RDW 13.1 11.5 - 14.5 % 08/07/2015 12:31 PM [facility] RDW-STDEV 45.9 37.1 - 48.7 fL 08/07/2015 12:31 PM [facility] PLATELETS 234 140 - 350 K/uL 08/07/2015 12:31 PM [facility] MPV 10.3 9.3 - 12.4 fL 08/07/2015 12:31 PM [facility] [employer] [facility] NEUTROPHILS 64 45 - 70 % 08/07/2015 12:31 PM [facility] [employer] [facility] LYMPHOCYTES 26 16 - 45 % 08/07/2015 12:31 PM [facility] MONOCYTES 10 3 - 13 % 08/07/2015 12:31 PM [facility] EOSINOPHILS 0 <=7 % 08/07/2015 12:31 PM [facility] [employer] [facility] BASOPHILS 0 <3 % 08/07/2015 12:31 PM [facility] [employer] [facility] NEUTROPHIL ABSOLUTE 4.94 1.90 - 7.00 K/uL 08/07/2015 12:31 PM [facility] [employer] [facility] LYMPHOCYTE ABSOLUTE 1.99 0.70 - 4.50 K/uL 08/07/2015 12:31 PM [facility] [employer] LABORATORY [facility] MONOCYTE ABSOLUTE 0.75 0.10 - 1.30 K/uL 08/07/2015 12:31 PM [facility] [employer] [facility]ATORY [facility] EOSINOPHIL ABSOLUTE 0.03 <0.70 K/uL 08/07/2015 12:31 PM [facility] [employer] [facility] BASOPHILS ABSOLUTE 0.02 <=0.20 K/uL 08/07/2015 12:31 PM [facility] [employer] [facility] Blood Collection / Unknown 08/07/2015 12:10 PM AGRICULTURAL PRODUCE WASHER 08/07/2015 12:18 PM AGRICULTURAL PRODUCE WASHER Chung Zayas MD HEMATOLOGY ORDERABLE S [facility] [employer] SERVICES - [facility] CLIA# [id number] [address] [place] [address] documented in this encounter Visit Diagnoses [...] Minutes, Routine New Bag 08/07/2015 12:07 PM AGRICULTURAL PRODUCE WASHER 1,000 mL 2000 mL/hr documented in this encounter Active and Recently Administered Medications Times are shown in AGRICULTURAL PRODUCE WASHER. Scheduled Medication Order 08/05/2015 08/06/2015 08/07/2015 sodium chloride 0.9% bolus solution 1,000 mL (COMPLETED) 1,000 mL, IV, ONE TIME ONLY, 1 dose, On Catarina 08/07/15 at 1145, at 2,000 mL/hr, Administer over 30 Minutes, Routine 1207 (New Bag - Prov ider: Ana Lazo, BRIA)1237 (Due: Stopped - Provider: Ana Lazo, RN)1255 (Stopped - Provider: Ana Lazo, RN) documented in this encounter Care Teams Shoe Dyer Relationship Specialty Start Date End Date [facility], External Provider [address] [place] [address] PCP - General 08/07/15 documented as of this encounter
--- OUTSIDE RECORDS SUMMARY | 2024-05-30 06:25 | XMS_ITS | Clinical Summary ---
Author Organization [facility] Address [address] [place] [address] Phone Care Team Providers Care Exhibition Carver Name Role Phone [facility], External Provider Primary Care Provider U navailable Allergies No known active allergies Medications Medication Sig Dispensed Refills Start Date End Date Status ALPRAZolam (XANAX) 0.5 mg tablet Take 1 Tablet (0.5 mg) by mouth 3 times daily as needed for Anxiety (Anxiety attack). 15 Tablet 0 08/07/2015 Active Social History Tobacco Use Types Packs/Day Years Used Date Smoking Tobacco: Never Alcohol Use Standard Drinks/Week Comments No 0 (1 standard drink = 0.6 oz pur e alcohol) Sex and Gender Information Value Date Recorded Sex Assigned at Not on file Gender Identity Not on file Sexual Orientation Not on file Last Filed Vital Signs Vital Sign Reading Time Taken Comments Blood Pressure 142/100 08/07/2015 2:53 PM AUXILIARY OPERATOR Pulse - - Temperature 36.7 ??C (98 ??F) 08/07/2015 10:33 AM AUXILIARY OPERATOR Respiratory Rate 16 08/07/2015 2:53 PM AUXILIARY OPERATOR Oxygen Saturation 100% 08/07/2015 2:53 PM AUXILIARY OPERATOR Inhaled Oxygen Concentration - - Weight 83.9 kg (185 lb) 08/07/2015 10:33 AM AUXILIARY OPERATOR Height 177.8 cm (5' 10 ) 08/07/2015 10:33 AM AUXILIARY OPERATOR Body Mass Index 26.54 08/07/2015 10:33 AM AUXILIARY OPERATOR Plan of Treatment Health Maintenance Due Date Last Done Comments DTAP/TDAP/TD VACCINES (1 - Tdap) 2011 HEPATITIS B VACCINES (1 of 3 - 19+ 3-dose series) 2011 INFLUENZA VACCINE (#1) 2023 HPV VACCINES Aged Out No longer eligi ble based on patient's age to complete this topic PNEUMOCOCCAL VACCINE 0-64 YEARS Aged Out No longer eligible based on patient's age to complete this topic Care Teams Exhibition Carver Relationship Specialty Start Date End Date [facility], External Provider [address] [place] [address] PCP - General 08/07/15
--- OUTSIDE RECORDS SUMMARY | 2024-05-30 06:25 | XMS_ITS | Clinical Summary ---
Author Organization [facility] Address [address] [place] [address] Care Team Providers Care Rn Clinical Appeals Name Role Phone Unavailable Primary Care Provider Unavailabl e Source Comments [facility] [employer],non-owned Affiliates and Associated Physician Practices is amultiple site organization consisting of ambulatory clinics and hospital sitesin [place], [place], [place] and [place]. This disclosure is being madepursuant to the Care Everywhere program and may not contain all information available regarding this patient. Last updated 18.[facility] [employer] Social History Tobacco Use Types Packs/Day Years [...]
--- OUTSIDE RECORDS SUMMARY | 2024-05-30 06:25 | XMS_ITS | Encounter Summary ---
Author Organization [facility] Address [address] [place] [address] Care Team Providers Care Yield Clerk Name Role Phone Unavailable Primary Care Provider [...]
--- OUTSIDE RECORDS SUMMARY | 2024-05-30 06:25 | XMS_ITS | Patient Health Summary ---
Author Organization [facility] Address [address] [place] [address] Care Team Providers Care End Maker Name Role Phone Unavailable Primary Care Provider Unavailabl e Note from [facility],non-owned Affiliates and Associated Physician Practices is amultiple site organization consisting of ambulatory clinics and hospital sitesin [place], [place], [place] and [place]. This disclosure is being madepursuant to the Care Everywhere program and may not contain all information available regarding this patient. Last updated 18.[facility] Social History Tobacco Use Types Packs/Day Years Used Date Smoking Tobacco: Never Assessed Sex and Gender Information Value Date Recorded Sex Assigned at Not on file Gender Identity Not on file Sexual Orientation Not on file
--- OUTSIDE RECORDS SUMMARY | 2024-05-30 06:25 | XMS_ITS | Referral Summary ---
Author Organization [facility] Address [address] [place] [place] [address] Care Team Providers Care Brick Catcher Name Role Phone Unavailable Primary Care Provider Unavailabl e Source Comments [facility],non-owned Affiliates and Associated Physician Practices is amultiple site organization consisting of ambulatory clinics and hospital sitesin [place], [place], [place]. This disclosure is being madepursuant to the Care Everywhere program and may not contain all information available regarding this patient. Last updated 18.[facility] Accertify Social History Tobacco Use Types Packs/Day Years Used Date Smoking Tobacco: Never Assessed Sex and Gender Information Value Date Recorded Sex Assigned at Not on file Gender Identity Not on file Sexual Orientation Not on file Plan of Treatment Not on file
--- OUTSIDE RECORDS SUMMARY | 2024-05-30 06:26 | XMS_ITS | Encounter Summary ---
Author Organization [facility] Healthcare Address [address] [place] [address] Care Team Providers Care Advertising Sales Representative Name Role Phone Leo Manzano MD Unavailable Carl Strickland MD Primary Care Provider Reason for Visit * Reason Comments Abdominal Pain Vomiting Encounter Details Date Type Department Care Team (Late st Contact Info) Description 05/21/2024 4:17 PM PROPERTY CONDITION ASSESSOR - 05/21/2024 8:27 PM [facility] Emergency [facility] Emergency Department [address] [place] [address] Marcus Amaya MD [address] [facility] [address] [place] [address] Nausea and vomiting, unspecified vomiting type (Primary Dx) Discharge Disposition: Discharge to home or self care Social History Tobacco Use Types Packs/Day Years Used Date Smoking Tobacco: Never Smokeless Tobacco: Never Alcohol Use Standard Drinks/Week Comments Not Currently 0 (1 standard drink = 0.6 oz pur e alcohol) [facility] Utilities Answer Date Recorded In the past 12 months has [employer], gas, oil, or water company threatened [...] declined 10/02/2023 How often do you attend congregational or latter day serv ices? Patient declined 10/02/2023 Do you belong to any clubs o r organizations such as congregational groups, unions, fraternal or athletic groups, or [...] on file Legal Sex Male 3:42 AM PROPERTY CONDITION ASSESSOR Gender Identity Not on file Sexual Orientation Straight 06/12/2023 11 :43 PM PROPERTY CONDITION ASSESSOR documented as of this encounter Last Filed Vital Signs Vital Sign Reading Time Taken Comments Blood Pressure 113/72 05/21/2024 2:35 PM PROPERTY CONDITION ASSESSOR Pulse 92 05/21/2024 2:16 PM PROPERTY CONDITION ASSESSOR Temperature 36.7 ??C (98.1 ??F) 05/21/2024 2:16 PM CS T Respiratory Rate 18 05/21/2024 2:16 PM PROPERTY CONDITION ASSESSOR Oxygen Saturation 100% 05/21/2024 2:16 PM PROPERTY CONDITION ASSESSOR Inhaled Oxygen Concentration - - Weight 99.3 kg (219 lb) 05/21/2024 2:16 PM PROPERTY CONDITION ASSESSOR Height 175.3 cm (5' 9 ) 05/21/2024 2:16 PM PROPERTY CONDITION ASSESSOR Body Mass Index 32.34 05/21/2024 2:16 PM PROPERTY CONDITION ASSESSOR documented in this encounter Discharge Instructions * Discharge Instructions* Marcus Amaya MD - 05/21/2024 8:14 PM PROPERTY CONDITION ASSESSOR Please return if you have pain that is not controlled with medications at home, unable to keep fooddown, have new fevers or chills, or any other concerning symptoms. ERTY CONDITION ASSESSOR * Attachments The following attachments cannot be sent through Care Everywhere. * Vomiting (Adult) (Nepali) documented in this encounter Medications at Time [...] RN - 05/21/2024 4:41 PM CST Bed: ED3-[facility] Expected date: Expected time: Means of arrival: Comments: 3-5 Kindra Cummins RN 05/21/24 1641 ERTY CONDITION ASSESSOR * Marcus Amaya MD - 05/21/2024 4:31 [...] Abdominal pain Marcus Amaya MD 05/21/24 2017 ERTY CONDITION ASSESSOR * Radha Leung RN - 05/21/2024 2:17 PM CST Pt arrives to ED for nausea and vomiting since Tuesday. Hx of type b aortic dissection in 04/2023.Pt was seen on 05/19/24 for same abdominal pain and nausea. Prior to that pt was also seen at [place]. ERTY CONDITION ASSESSOR documented in this encounter Miscellaneous Notes * [...] the ED Huy Mack MD 05/21/24 1427 ERTY CONDITION ASSESSOR * ED Pre-Arrival Note - Sherri Munson RN - 05/21/2024 2:10 PM PROPERTY CONDITION ASSESSOR Pre-Arrival Note Pt to ED BIBEMS for abdominal pain that radiates to back. Pt seen at [facility] for similar thing overthe weekend. Pt Endorsing nausea and vomiting. EMS gave 4mg of Zofran in route. Sherri Munson RN ERTY CONDITION ASSESSOR documented in this encounter Plan of Treatment Not on file documented as of this encounter Goals Goal Patient Goal Type Associated Problems Recent Progress Patient-Stated? Author CCM Chronic Pain Care Plan Chronic Care Management No change(05/16 2:51 PM PROPERTY CONDITION ASSESSOR) No Rita Landa, BRIA Note: Problem: Chronic Pain Goals: 1. Minimize further functional decline 2. Maximize quality of life 3. Control pain Strategies: - Activity/exercise program recommendation - Conservative stepwise pain medicine strategy with multi-disciplinary approach - Recommend healthy lifestyle strategies and compensatory methods as needed documented as of this encounter Procedures Procedure Name Priority Date/Time Associated Diagnosis Comments POCT RAPID HIV ANTIBODY [facility] SCREENING-PAPA ELIGIBLE Routine 05/21/2024 7:35 PM PROPERTY CONDITION ASSESSOR OXYCODONE CONFIRMATION, URINE Routine 05/21/2024 5:34 PM PROPERTY CONDITION ASSESSOR FENTANYL CONFIRMATION, MS URINE Routine 05/21/2024 5:34 PM PROPERTY CONDITION ASSESSOR DRUGS OF ABUSE SCREEN, URINE WITH REFLEX CONFIRMATION Routine 05/21/2024 5:34 PM PROPERTY CONDITION ASSESSOR URINALYSIS AND REFLEX TO MICROSCOPIC STAT 05/21/2024 5:34 PM PROPERTY CONDITION ASSESSOR AMPHETAMINE, URINE, CONFIRMATION Routine 05/21/2024 5:34 PM PROPERTY CONDITION ASSESSOR URINALYSIS, MICROSCOPIC ONLY STAT 05/21/2024 5:34 PM PROPERTY CONDITION ASSESSOR SEPSIS LACTATE WITH REFLEX STAT 05/21/2024 4:33 PM PROPERTY CONDITION ASSESSOR EGFR STAT 05/21/2024 3:41 PM PROPERTY CONDITION ASSESSOR DIFFERENTIAL AUTO STAT 05/21/2024 3:4 1 PM PROPERTY CONDITION ASSESSOR CBC WITH AUTO DIFFERENTIAL STAT 05/21/2024 3:41 PM PROPERTY CONDITION ASSESSOR LIPASE STAT 05/21/2024 3:41 PM PROPERTY CONDITION ASSESSOR COMPREHENSIVE METABOLIC PANEL STAT 05/21/2024 3:41 PM PROPERTY CONDITION ASSESSOR ECG 12-LEAD STAT 05/21/2024 2:24 PM PROPERTY CONDITION ASSESSOR documented in this encounter Results * POCT Rapid HIV Antibody [facility] Screening-Papa Eligible (05/21/2024 7:35 PM PROPERTY CONDITION ASSESSOR) [facility] Rapid HIV, POC Negative Negative Lot Number [id number] QC Control Line Acceptable Blood 05/21/2024 7:35 PM PROPERTY CONDITION ASSESSOR Marcus Amaya MD POINT OF CARE TEST ORD ERABLES Final Result * (ABNORMAL) Oxycodone Confirmation, Urine (05/21/2024 5:34 PM PROPERTY CONDITION ASSESSOR) Oxycodone Conf, Ur Confirmed Positive(A) CutOff 50 [...] needed. Performance characteristics were determined by the [facility] in a manner consistent with CLIA requirement and has not been cleared or approved by the U.S. Food and Drug Administration. Current interpretive data was last revised 2020. Urine 05/21/2024 5:34 PM PROPERTY CONDITION ASSESSOR 05/21/2024 5:46 PM PROPERTY CONDITION ASSESSOR Marucs Amaya MD LAB URINE ORDERABLES F inal Result [facility] [place] [address] * (ABNORMAL) Fentanyl Confirmation, Urine (05/21/2024 5:34 PM PROPERTY CONDITION ASSESSOR) Fentanyl Conf, Ur Confirmed Positive(A) Cutoff 0.3ng/mL [...] needed. Performance characteristics were determined by the [facility] in a manner consistent with CLIA requirement and has not been cleared or approved by the U.S. Food and Drug Administration. Current interpretive data was last revised 2020. Urine 05/21/2024 5:34 PM PROPERTY CONDITION ASSESSOR 05/21/2024 5:46 PM PROPERTY CONDITION ASSESSOR Marcus Amaya MD LAB URINE ORDERABLES F inal Result Performing Organization Address [facility] Co de Phone Number [place] [address] * Amphetamine Confirmation, Urine (05/21/2024 5:34 PM PROPERTY CONDITION ASSESSOR) Amphetamine Conf, Ur Does Not Confirm CutOff [...] needed. Performance characteristics were determined by the [facility] in a manner consistent with CLIA requirement and has not been cleared or approved by the U.S. Food and Drug Administration. Current interpretive data was last revised on 2020. Urine 05/21/2024 5:34 PM PROPERTY CONDITION ASSESSOR 05/21/2024 5:46 PM PROPERTY CONDITION ASSESSOR Marcus Amaya MD LAB URINE ORDERABLES F inal Result Performing Organization Address City/[facility]/ZIP Co de Phone Number [place] [address] * (ABNORMAL) Urinalysis, microscopic only (05/21/2024 5:34 PM PROPERTY CONDITION ASSESSOR) WBC, ur 0-5 0 - 5 /HPF RBC, ur 0-2 0 - 2 /HPF [facility] Epithelial cells, squamous, ur 1-5 0 - 5 /HPF [facility] Bacteria, ur Trace(A) [facility] Mucous, ur Present(A) [facility] Hyaline casts, ur 11-20(A) 0 - 10 /LPF [facility] Urine 05/21/2024 5:34 PM PROPERTY CONDITION ASSESSOR 05/21/2024 5:39 PM PROPERTY CONDITION ASSESSOR Marcus Amaya MD LAB URINE ORDERABLES F inal Result [facility] [address] [facility] [place] [address] * (ABNORMAL) Drugs of Abuse Screen, Urine with Reflex Confirmation (05/21/2024 5:34 PM PROPERTY CONDITION ASSESSOR) Amphetamine, ur Screen Positive, presumptive (A) CutOff 500ng/mL Comment: Interpretive Data - Amphetamines: ??Samples containing greater than 500 ng/mL d-methamphetamine ??or other cross-reacting amphetamine compounds are reported as positive. ??Amphetamine immunoassays are subject to significant false positive rates due to cross-reactivity of non-amphetamine drugs. Confirmatory testing required for definitive results. Current Interpretive Data was last reviewed 2022. Barbiturates, ur Not Detected CutOff 200ng/mL [facility] Comment: Interpretive Data - Barbiturates: ??Samples containing greater than 200 ng/mL secobarbital or other cross-reacting barbiturate compounds are reported as positive. ??False positive and false negative results are possible. Confirmatory testing required for definitive results. Current Interpretive Data was last reviewed 2022. Benzodiazepines, ur Screen Positive, presumptive (A) CutOff 100ng/mL [facility] Comment: Interpretive Data - Benzodiazepines: [...] Positive, presumptive (A) CutOff 5 ng/mL [facility] Comment: Interpretive Data - Fentanyl: ?? Samples containing greater than 5 ng/mL norfentanyl, fentanyl, or other cross-reacting fentanyl compounds are reported as positive. False positive and false negative results are possible. Confirmatory testing required for definitive results. Current Interpretive Data was last reviewed 2023. Methadone, ur Not Detected CutOff 300ng/mL [facility] Comment: Interpretive Data - Methadone: ??Samples containing greater than 300 ng/mL d,l-methadone or other cross-reacting compounds are reported as positive. ??False positive and false negative results are possible. Confirmatory testing required for definitive results. Current Interpretive Data was last reviewed 2022. Opiates, ur Not Detected CutOff 300ng/mL [facility] Comment: Interpretive Data - Opiates: ??Samples containing greater than 300 ng/mL morphine or other cross-reacting compounds are reported as positive. ??False positive and false negative results are possible. Confirmatory testing required for definitive results. Current Interpretive Data was last reviewed 2022. Oxycodone, ur Screen Positive, presumptive (A) CutOff 100ng/mL [facility] Comment: Interpretive Data - Oxycodone: ??Samples containing greater than 100 ng/mL oxycodone or other cross-reacting compounds are reported as ??positive. ??False positive and false negative results are possible. Confirmatory testing required for definitive results. Current Interpretive Data was last reviewed 2022. Phencyclidine, ur Not Detected CutOff 25 ng/mL [facility] Comment: Interpretive Data - Phencyclidine: ??Samples containing greater than 25 ng/mL phencyclidine or other cross-reacting compounds are reported as positive. ??False positive and false negative results are possible. Confirmatory testing required for definitive results. Current Interpretive Data was last reviewed 2022. Urine Creatinine 357 mg/dL [facility] Comment: Interpretive Data Urine Creatinine: < 10 mg/dL is extremely dilute = or > 10 but < 20 mg/dL is dilute = or > 20 mg/dL is normal Current Interpretive Data was last revised on 2017. Urine 05/21/2024 5:34 PM PROPERTY CONDITION ASSESSOR 05/21/2024 5:46 PM PROPERTY CONDITION ASSESSOR Narrative [facility] - 05/21/2024 6:16 PM PROPERTY CONDITION ASSESSOR Drug of Abuse screening is performed by immunoassay for medical purposes only. ??This is not to be used for Pain Management purposes. ??If Detected, confirmation testing will be performed for Amphetamines, Cocaine, Fentanyl, Methadone, Opiates, Oxycodone or Phencyclidine. Marcus Amaya MD LAB URINE ORDERABLES F inal Result [facility] [address] [facility] [place] [address] * (ABNORMAL) Urinalysis reflex to microscopic (05/21/2024 5:34 PM PROPERTY CONDITION ASSESSOR) Color, ur Yellow Yellow Clarity, ur Clear Clear [facility] Specific gravity, ur 1.032(H) 1.003 - 1.030 [facility] pH, urine 6.0 [facility] Comment: Interpretive Data ? Urine pH is affected by diet, medications, systemic acid-base disturbances, and renal tubular function. ??pH may affect urinary stone formation. ??For example, urine pH below 6.0 may help reduce the tendency for calcium phosphate stones and pH greater than 6.0 may reduce the tendency for uric acid stone formation. Source: [facility] Current Interpretive Data was last revised on 2017 Protein, ur ql 2+(A) Negative [facility] Glucose, ur ql Negative Negative [facility] Ketones, ur 1+(A) Negative [facility] Bilirubin, ur Negative Negative [facility] Blood, ur Negative Negative [facility] Urobilinogen, ur <2.0 <2.0 mg/dL [facility] Nitrite, ur Negative Negative [facility] Leukocyte esterase, ur Negative Negative [facility] UA reflex comment Reflex to microscopic UA will be performed. [facility] Urine 05/21/2024 5:34 PM PROPERTY CONDITION ASSESSOR 05/21/2024 5:39 PM PROPERTY CONDITION ASSESSOR Marcus Amaya MD LAB URINE ORDERABLES F inal Result Performing Organization Address [facility] Co de Phone Number [place] [address] * Sepsis Lactate w/ Reflex (05/21/2024 4:33 PM PROPERTY CONDITION ASSESSOR) Sepsis Lactate 1.9 0.7 - 2.0 mmol/L Blood 05/21/2024 4:33 PM PROPERTY CONDITION ASSESSOR 05/21/2024 4:44 PM PROPERTY CONDITION ASSESSOR Marcus Amaya MD LAB BLOOD ORDERABLES F inal Result Performing Organization Address [facility] de Phone Number [facility] [place] [address] * eGFR (05/21/2024 3:41 PM PROPERTY CONDITION ASSESSOR) eGFR 70 >=60 mL/min/1. 73 m2 Comment: [...] last reviewed 2021. Blood 05/21/2024 3:41 PM PROPERTY CONDITION ASSESSOR 05/21/2024 4:03 PM PROPERTY CONDITION ASSESSOR us Chelle Elliott MD LAB BLOOD ORDERABLES Final Result [facility] [address] [facility] [place] [address] * (ABNORMAL) Differential, auto (05/21/2024 3:41 PM PROPERTY CONDITION ASSESSOR) Pathologist [facility] Neutrophil abs 6.9(H) 1.5 - 6.5 K/cumm Imm gran abs 0.0 0.0 - 0.1 K/cumm [facility] Lymphocyte abs 1.5 0.8 - 3.3 K/cumm [facility] Monocyte abs 0.9(H) 0.2 - 0.8 K/cumm [facility] Eosinophil abs 0.0 0.0 - 0.5 K/cumm [facility] Basophil abs 0.0 0.0 - 0.1 K/cumm [facility] Neutrophil pct 73.5 % [facility] Comment: Interpretive Data Percent cell count reference ranges are not reported, since discordance with absolute values may lead to misinterpretation of CBC data. Current Interpretive Data was last revised on 2017. Imm gran pct 0.3 % [facility] Comment: Interpretive Data Percent cell count reference ranges are not reported, since discordance with absolute values may lead to misinterpretation of CBC data. Current Interpretive Data was last revised on 2017. Lymphocyte pct 15.7 % [facility] Comment: Interpretive Data Percent cell count reference ranges are not reported, since discordance with absolute values may lead to misinterpretation of CBC data. Current Interpretive Data was last revised on 2017. Monocyte pct 10.0 % [facility] Comment: Interpretive Data Percent cell count reference ranges are not reported, since discordance with absolute values may lead to misinterpretation of CBC data. Current Interpretive Data was last revised on 2017. Eosinophil pct 0.1 % [facility] Comment: Interpretive Data Percent cell count reference ranges are not reported, since discordance with absolute values may lead to misinterpretation of CBC data. Current Interpretive Data was last revised on 2017. Basophil pct 0.4 % [facility] Comment: Interpretive Data Percent cell count reference ranges are not reported, since discordance with absolute values may lead to misinterpretation of CBC data. Current Interpretive Data was last revised on 2017. Blood 05/21/2024 3:41 PM PROPERTY CONDITION ASSESSOR 05/21/2024 4:06 PM PROPERTY CONDITION ASSESSOR Chelle Elliott MD LAB BLOOD ORDERABLES Final Result [facility] [address] [facility] [place] [address] * Lipase (05/21/2024 3:41 PM PROPERTY CONDITION ASSESSOR) Lipase 15 10 - 99 Units/L Blood (Blood, Venous) 05/21/2024 3:41 PM PROPERTY CONDITION ASSESSOR 05/21/2024 4:03 PM PROPERTY CONDITION ASSESSOR Marcus Amaya MD LAB BLOOD ORDERABLES F inal Result [facility] [place] [address] * (ABNORMAL) Comprehensive metabolic panel (05/21/2024 3:41 PM PROPERTY CONDITION ASSESSOR) Sodium 136 135 - 145 mmol/L Potassium, pl 3.6 3.3 - 4.9 mmol/L [facility] Chloride 99 97 - 110 mmol/L [facility] CO2 22 22 - 32 mmol/L [facility] Anion gap 15 2 - 15 mmol/L [facility] BUN 22 6 - 25 mg/dL [facility] Creatinine 1.37(H) 0.80 - 1.30 mg/dL [facility] Glucose 92 70 - 199 mg/dL [facility] Comment: Interpretive Data Fasting glucose [...] Calcium 10.3 8.5 - 10.3 mg/dL [facility] Bilirubin, total 1.5(H) 0.1 - 1.2 mg/dL [facility] Protein, pl 8.5 6.5 - 8.5 g/dL [facility] Albumin 5.1(H) 3.5 - 5.0 g/dL [facility] Alk phos 99 40 - 130 Units/L [facility] ALT 19 7 - 55 Units/L [facility] AST 21 10 - 50 Units/L [facility] Blood 05/21/2024 3:41 PM PROPERTY CONDITION ASSESSOR 05/21/2024 4:03 PM PROPERTY CONDITION ASSESSOR Marcus Amaya MD LAB BLOOD ORDERABLES F inal Result [facility] Department [place] [address] * CBC with auto differential (05/21/2024 3:41 PM PROPERTY CONDITION ASSESSOR) [facility] Signature WBC 9.4 3.8 - 9.9 K/cumm Hgb 13.9 13.0 - 17.5 g/dL [facility] Hct 40.0 38.9 - 50.3 % [facility] Plt 291 150 - 400 K/cumm [facility] MPV 9.1 9.1 - 12.3 fL [facility] RBC 4.59 4.30 - 5.80 M/cumm [facility] MCV 87.1 81.3 - 96.4 fL [facility] MCH 30.3 27.1 - 33.3 pg [facility] MCHC 34.8 32.3 - 35.7 g/dL [facility] RDW CV 13.1 11.1 - 14.9 % [facility] RDW SD 41.8 35.7 - 48.1 fL [facility] NRBC abs 0.00 0.00 - 0.01 K/cumm [facility] Blood (Blood, Venous) 05/21/2024 3:41 PM PROPERTY CONDITION ASSESSOR 05/21/2024 4:06 PM PROPERTY CONDITION ASSESSOR Marcus Amaya MD LAB BLOOD ORDERABLES F inal Result [facility] [place] [address] * ECG 12-LEAD (05/21/2024 2:24 PM PROPERTY CONDITION ASSESSOR) Narrative [facility] - 05/21/2024 2:24 PM PROPERTY CONDITION ASSESSOR Huy Mack MD ? 05/21/2024 ??2:27 PM [...] Marcus Amaya MD ECG ORDERABLES Final Result [facility] documented in this encounter Visit Diagnoses [...] min for adults Given 05/21/2024 4:36 PM PROPERTY CONDITION ASSESSOR 5 mg HYDROcodone-acetaminophen (NORCO) 5-325 mg per tablet 1 tablet 1 tablet, oral, Once, On Tue05/21/24 at 1930, For 1 dose, Indications: PainIndications:Pain Given 05/21/2024 7:31 PM PROPERTY CONDITION ASSESSOR 1 tablet HYDROmorphone (DILAUDID) injection 0.5 mg 0.5 mg, intravenous, Administer over 2 Minutes, Once, On Tue05/21/24 at 1630, For 1 dose Given 05/21/2024 4:33 PM PROPERTY CONDITION ASSESSOR 0.5 mg HYDROmorphone (DILAUDID) injection 0.5 mg 0.5 mg, intravenous, Administer over 2 Minutes, Once, On Tue05/21/24 at 1651, For 1 dose Given 05/21/2024 5:14 PM PROPERTY CONDITION ASSESSOR 0.5 mg sodium chloride 0.9% bolus 1,000 mL 1,000 mL, intravenous, Once, On Tue05/21/24 at 1630, For 1 dose New Bag 05/21/2024 4:36 PM PROPERTY CONDITION ASSESSOR 1,000 mL documented in this encounter Active and Recently Administered Medications Times are shown in PROPERTY CONDITION ASSESSOR. Scheduled Medication Order 05/19/2024 05/20/2024 05/21/2024 haloperidol [...] 05/21/2024 documented in this encounter Care Teams Advertising Sales Representative Relationship Specialty Start Date End Date Carl Strickland MD [address] [facility] [address] [place] [address] PCP - General Internal Medicine 06/06/23 Leo Manzano MD [address] [facility] [id number] [place] [address] Surgeon Vascular Surgery 05/16/23 documented as of this encounter
--- OUTSIDE RECORDS SUMMARY | 2024-05-30 06:26 | XMS_ITS | Clinical Summary ---
Author Organization [facility] Address [address] [place] [address] Care Team Providers Care Batch Operator Name Role Phone Leo Manzano MD Unavailable [phone] Carl Strickland MD Primary Care Provider Allergies [...] line Assessment & Plan (06/24/2023 12:04 PM COMMUNICATIONS SENIOR ASSOCIATE): - CT without discitis or osteomyelitis on 06/13 - MRI 06/13 also without discitis or osteomyelitis - no narcotic pain medications are required from vascular surgery perspective - Consult pain management team Pseudoaneurysm following procedure ([facility]) Assessment & Plan (06/24/2023 10:40 AM COMMUNICATIONS SENIOR ASSOCIATE): - s/p vascular access - Q4 N/V checks - no current surgical intervention - no activity restrictions, OOB/ ambulate Infrarenal abdominal aortic aneurysm, without ru pture 06/13/2023 Assessment & Plan (06/24/2023 10:41 AM COMMUNICATIONS SENIOR ASSOCIATE): s/p TEVAR on 06/05/23 (graft terminates above celiac take off) 06/11 discharged home; 06/13 Re admitted for worsening back pain, HTN, and subjective fever/chills. - CT 06/13 shows no change in aneurysm, no stent migration, no increase in false lumen perfusion - non operative Polysubstance abuse (CMS/[facility]) 06/10/2023 Moderate malnutrition (CMS/HCC) 06/09/2023 Dissection of abdominal aorta (CMS/HCC) 06/03/19 24 Urinary retention 05/16/2023 Assessment & Plan (05/16/2023 10:44 AM COMMUNICATIONS SENIOR ASSOCIATE): Patient with urinary retention requiring straight cath X1 05/15, now voiding without any issues. - Continue Flomax. - Patient requests urology follow up, referral placed. Epistaxis 05/13/2023 Assessment & Plan (05/13/2023 12:42 PM COMMUNICATIONS SENIOR ASSOCIATE): Significant nose bleed in the OR requiring intra-op ENT c/s. DL performed, no other sources of bleeding visualized. ACT post protamine 149. - ENT following - ocean spray tid - no other s/s bleeding Pneumonia 05/13/2023 Assessment & Plan (05/13/2023 12:43 PM COMMUNICATIONS SENIOR ASSOCIATE): Tracheal aspirate 05/05 with Haemophilus Inf - susana(05/04 - 05/10), linezolid (05/04-05/06) HTN (hypertension) 05/13/2023 Assessment & Plan (05/28/2024 8:41 AM COMMUNICATIONS SENIOR ASSOCIATE): BP well controlled. - continue home amlodipine [...] needed Assessment & Plan (06/24/2023 10:41 AM COMMUNICATIONS SENIOR ASSOCIATE): Difficult to control Htn. Dr. Abarca following - Continue amlodipine, lisinopril, coreg, hydralazine - SBP goal 120-140 - VS q 4 hrs and prn Assessment & Plan (06/21/2023 7:57 AM COMMUNICATIONS SENIOR ASSOCIATE): BP stable at present. Recommend discontinuation of the diltiazem and continue amlodipine (as opposed to giving two calcium channel blockers) Assessment & Plan (06/20/2023 8:33 PM COMMUNICATIONS SENIOR ASSOCIATE): BP improving. Recommend continue medications and follow up bp, except recommend discontinuation of the diltiazem as he is already on a calcium channel louie, amlodipine Assessment & Plan (06/18/2023 7:59 AM COMMUNICATIONS SENIOR ASSOCIATE): Patient with continued hypertension. Blood pressure in the right arm levels are improved now in the 130s and 140s. Recommend consideration for adjustment of medications as follows. 1. Add spironolactone 25 mg a day 2. Consider adding clonidine 0.1 mg twice a day Assessment & Plan (06/11/2023 7:50 AM COMMUNICATIONS SENIOR ASSOCIATE): Patient hypertensive. Recommend resuming hydralazine 25 mg 3 times a day. Continue the amlodipine and carvedilol. Follow-up blood pressure. The patient should have follow-up blood pressure when he leaves the hospital as well. Assessment & Plan (06/10/2023 3:48 PM COMMUNICATIONS SENIOR ASSOCIATE): Goal systolic BP 140-180 for one month [...] status Assessment & Plan (06/09/2023 10:54 AM COMMUNICATIONS SENIOR ASSOCIATE): Blood pressure well controlled at present. Medicines are being adjusted. Currently on carvedilol and hydralazine. A want to transition to amlodipine 5 mg a day to wean hydralazine, as tolerated, as 3 times a day medication can be difficult long-term Assessment & Plan (05/13/2023 12:49 PM COMMUNICATIONS SENIOR ASSOCIATE): Hx of uncontrolled HTN, non-compliant to medications. [...] time Assessment & Plan (06/11/2023 7:50 AM COMMUNICATIONS SENIOR ASSOCIATE): Clinically stable. Renal function stable. Blood pressure improved We will recommend genetic testing as an outpatient Assessment & Plan (06/10/2023 3:48 PM COMMUNICATIONS SENIOR ASSOCIATE): Presents with abdominal pain and concern for progression of dissection on CT - 06/05/23: OR s/p TEVAR extension and dissection stent placement - BP management per HTN - pain control - Q4 NV checks, Q2 VS - lovenox DVT ppx - He will f/u with Dr. Abarca as outpatient for genetics testing. Assessment & Plan (06/09/2023 10:54 AM COMMUNICATIONS SENIOR ASSOCIATE): Clinically stable. Renal function stable. 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 No concern for mesenteric ischemia. - c/w impulse control - regular diet - transitioned to oral anti-hypertensive - pain management following. 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 Dilaudid discontinued 05/28. Pain signed off. Assessment & Plan (10/03/2023 2:00 PM CDT): Follows with Dr Abarca Cont antihypertensives Assessment & Plan (06/18/2023 8:00 AM COMMUNICATIONS SENIOR ASSOCIATE): Aortic imaging stable on recent CT scan. Continue blood pressure control. Assessment & Plan (05/02/2023 2:02 PM COMMUNICATIONS SENIOR ASSOCIATE): 32y/o male with uncontrolled HTN who presented to an OSH ER with acute onset shortness of breath, chest pain and back pain. 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 He was transferred to [facility] for further evaluation and treatment. Here, he [...] All feel these findings not to be practice representative of a type a dissection, therefore [...] Type Department Care Team Description 05/25/[address] [phone] Essie Singh RN 05/23/2024 7:45 PM COMMUNICATIONS SENIOR ASSOCIATE - 05/29/2024 10:36 AM COMMUNICATIONS SENIOR ASSOCIATE Hospital Encounter [address] [phone] Gonzalez Lamar DO Ohman, John Westley, MD Abdominal pain (Primary Dx) Discharge Disposition: Discharge to home or self care 05/21/2024 4:17 PM COMMUNICATIONS SENIOR ASSOCIATE - 05/21/2024 8:27 PM COMMUNICATIONS SENIOR ASSOCIATE Emergency [facility] Emergency Department [address] [place] [phone] Marcus Amaya MD Nausea and vomiting, unspecified vomiting type (Primary Dx) Discharge Disposition: Discharge to home or self care 05/19/2024 9:40 PM COMMUNICATIONS SENIOR ASSOCIATE - 05/20/2024 1:34 AM COMMUNICATIONS SENIOR ASSOCIATE Emergency [facility] Emergency Department [address] [place] [phone] Casandra Lock MD Renz, Nicholas Robert, MD Abdominal pain (Primary Dx); Chronic bilateral low back pain without sciatica; Abdominal aortic aneurysm dissection (HCC) Discharge Disposition: Discharge to home or self care 05/16/2024 2:39 PM COMMUNICATIONS SENIOR ASSOCIATE - 05/16/2024 11:59 PM COMMUNICATIONS SENIOR ASSOCIATE Hospital Encounter [facility] [address] [place] [address] Adrianne Adams MD PhD Sacroiliitis (HCC) (Primary Dx) Discharge Disposition: Discharge to home or self care 04/24/2024 Orders Only [facility] Nephrology [address] [place] [address] [place] [address] Miguel Dominguez MD ANGI (acute kidney injury) (HCC) (Primary Dx); Primary hypertension; Anemia, unspecified type; Screening for hematuria or proteinuria 03/07/2024 3:00 PM CDT Office Visit [facility] Vascular Surgery [address] [place] [address] Medical Office Building [address] [place] [address] Leo Manzano MD Dissection of abdominal aorta (CMS/HCC) (HCC); Aftercare following surgery of the circulatory system 03/07/2024 11:53 AM CDT - 03/07/2024 11:59 PM CDT Hospital Encounter [facility] [address] [place] [address] Dissection of thoracoabdominal aorta (CMS/HCC) (HCC) Discharge Disposition: Discharge to home or self care 02/28/2024 9:44 AM CDT - 02/28/2024 11:59 PM CDT Hospital Encounter [facility] [address] [place] [address] Hilaria Blankenship MD PhD Adrianne Adams MD [...] drink = 0.6 oz pur e alcohol) [facility] Utilities Answer Date Recorded In the past 12 months has th e [employer], gas, oil, or water [employer] threatened to shut off services in your [...] week 05/24/2024 How often do you attend [facility] or protestant services? Never 05/24/2024 Do you belong to [...] senior living (including now)? Patient declined 10/02/2023 Housing Stability [...] any time in the past 12 m [facility], were you homeless or living in a senior living (including now)? No 05/24/2024 Personal Safety Answer Date Recorded Have you ever been in or are you currently in a harmful physical or emotional relationship or is someone making you feel afraid or unsafe? Denies 05/23/2024 Sex and Gender Information Value Date Recorded Sex Assigned at Not on file Legal Sex Male 3:42 AM COMMUNICATIONS SENIOR ASSOCIATE Gender Identity Not on file Sexual Orientation Straight 06/12/2023 11 :43 PM COMMUNICATIONS SENIOR ASSOCIATE Obstetrics History Last Filed Vital Signs Vital Sign Reading Time Taken Comments Blood Pressure 129/70 05/29/2024 10:10 AM COMMUNICATIONS SENIOR ASSOCIATE Pulse 67 05/29/2024 7:57 AM COMMUNICATIONS SENIOR ASSOCIATE Temperature 36.6 ??C (97.8 ??F) 05/29/2024 7:57 AM CS T Respiratory Rate 18 05/29/2024 7:57 AM COMMUNICATIONS SENIOR ASSOCIATE Oxygen Saturation 96% 05/29/2024 7:57 AM COMMUNICATIONS SENIOR ASSOCIATE Inhaled Oxygen Concentration - - Weight 99.8 kg (220 lb) 05/23/2024 9:15 PM COMMUNICATIONS SENIOR ASSOCIATE Height 175.3 cm (5' 9 ) 05/23/2024 9:15 PM COMMUNICATIONS SENIOR ASSOCIATE Body Mass Index 32.49 05/23/2024 9:15 PM COMMUNICATIONS SENIOR ASSOCIATE Plan of Treatment Health Maintenance Due Date [...] Chronic Care Management No change(05/16 2:51 PM COMMUNICATIONS SENIOR ASSOCIATE) No Rita Landa, RN Note: Problem: Chronic Pain Goals: 1. Minimize further functional decline 2. Maximize quality of life 3. Control pain Strategies: - Activity/exercise program recommendation - Conservative stepwise pain medicine strategy with multi-disciplinary approach - Recommend healthy lifestyle strategies and compensatory methods as needed Medical Devices Implanted Type Area Instructor Flying Device Identifier Shelf Expiration Date Model / Serial / Lot [employer] Stent Graft Aortic Covered Tag [id number] Eptfe Nitinol [id number] - [id number] - [id number] Implanted:Qty : 1 on 05/02/2023 by Leo Manzano MD at [facility] Graft N/A: Aorta [employer] [id number] 12/07/2025 [id number] / [id number] / [employer] Stent Graft Thoracic Side Branch Tag [id number] Eptfe Nitinol [id number] - [id number] - [id number] Implanted:Qty : 1 on 05/02/2023 by Leo Manzano MD at [facility] Stent Left: Subclavian [employer] [id number] 06/27/2025 [id number] / [id number] / [employer] Graft Stent [place] Tag L20cm Od37mm Thoracic Active Control [id number] - [id number] - [id number] Implanted:Qty : 1 on 06/05/2023 by Nikhil Samuel MD at [facility] Stent N/A: Descending Thoracic Aorta [employer] [id number] 04/12/2024 [id number] / [id number] / [employer] Zenith 36mm 20-30mm 16mm 180mm 9 Dissection Introducer Sheath [id number] - [id number] Implanted:Qty : 1 on 06/05/2023 by Nikhil Samuel MD at [facility] Stent N/A: Descending Thoracic Aorta [employer] [id number] 12/20/2025 [id number] / / [id number] [employer] Device Clsr Perclose Prostyle Sut-Mediatd Closure-Repai r Sys 62163-55 - [id number] Implanted:Qty : 3 on 05/02/2023 by Leo Manzano MD at [facility] Vascular Closure Device Left: Common Femoral Artery [employer] [id number] 09/26/2024 31922-37 / / [id number] Description:Same lot number [employer] Device Clsr Perclose Prostyle Sut-Mediatd Closure-Repai r Sys 49177-59 - [id number] Implanted:Qty : 1 on 06/05/2023 by Nikhil Samuel MD at [facility] Left: Groin [employer] [id number] 12/27/2024 [id number] / / [id number] [employer] Device Clsr Perclose Prostyle Sut-Mediatd Closure-Repai r Sys 66499-58 - [id number] Implanted:Qty : 1 on 06/05/2023 by Nikhil Samuel MD at [facility] Left: Groin [employer] [id number] 12/27/2024 30345-91 / / [id number] [employer] Ron Contour 6fr 26cm Large Inner Lumen Low Profile Bladder Ag Taper Latex Free 180-223 - [id number] Implanted:Qty : 1 on 09/27/2023 by Marcus Glass MD at [facility] Right: Ureter [employer] 05/16/2026 [id number] 230 / / [id number] [employer] Ron Contour 6fr 26cm Large Inner Lumen Low Profile Bladder Ag Taper Latex Free 180-223 - [id number] Implanted:Qty : 1 on 10/04/2023 by Otoniel Landa MD at [facility] Right: Ureter [employer] 05/16/2026 [id number] 230 / / [id number] Explanted Type Area Instructor Flying Device Identifier Shelf Expiration Date Model / Serial / Lot [employer] Inlay [place] 6fr 28cm Pusher Fluoro Marker Atraumatic Insertion Latex Free [id number] - [id number] Implanted:Qty: 1 on 07/04/2023 by Marcus Gamboa MD at [facility] Explanted:Qty: 1 on 07/14/2023 by Stacia Su MD Stent Left: Ureter [employer] [id number] 04/14/2027 [id number] / / [id number] Procedures Procedure Name Priority Date/Time Associated Diagnosis Comments EGFR Timed 05/28/2024 3:36 AM COMMUNICATIONS SENIOR ASSOCIATE BASIC METABOLIC PANEL Timed 05/28/2024 3:36 AM COMMUNICATIONS SENIOR ASSOCIATE CBC WITHOUT DIFFERENTIAL Timed 05/28/2024 3:36 AM COMMUNICATIONS SENIOR ASSOCIATE LIDOCAINE LEVEL Timed 05/28/2024 3:36 AM COMMUNICATIONS SENIOR ASSOCIATE LIDOCAINE LEVEL Timed 05/27/2024 3:29 AM COMMUNICATIONS SENIOR ASSOCIATE TYPE AND SCREEN Timed 05/27/2024 3:29 AM COMMUNICATIONS SENIOR ASSOCIATE EGFR Routine 05/26/2024 4:38 AM COMMUNICATIONS SENIOR ASSOCIATE LIDOCAINE LEVEL Timed 05/26/2024 4:38 AM COMMUNICATIONS SENIOR ASSOCIATE BASIC METABOLIC PANEL Routine 05/26/2024 4:38 AM COMMUNICATIONS SENIOR ASSOCIATE CBC WITHOUT DIFFERENTIAL Routine 05/26/2024 4:38 AM COMMUNICATIONS SENIOR ASSOCIATE EGFR Routine 05/25/2024 4:20 PM COMMUNICATIONS SENIOR ASSOCIATE BASIC METABOLIC PANEL Routine 05/25/2024 4:20 PM COMMUNICATIONS SENIOR ASSOCIATE CBC WITHOUT DIFFERENTIAL Routine 05/25/2024 4:20 PM COMMUNICATIONS SENIOR ASSOCIATE LIDOCAINE LEVEL Routine 05/25/2024 4:20 PM COMMUNICATIONS SENIOR ASSOCIATE CRITICAL CARE Routine 05/25/2024 8:12 AM COMMUNICATIONS SENIOR ASSOCIATE Abdominal pain POCT GLUCOSE DEVICE Routine 05/25/2024 4 :16 AM COMMUNICATIONS SENIOR ASSOCIATE POCT GLUCOSE DEVICE Routine 05/24/2024 11:36 PM COMMUNICATIONS SENIOR ASSOCIATE POCT GLUCOSE DEVICE Routine 05/24/2024 8 :50 PM COMMUNICATIONS SENIOR ASSOCIATE CRITICAL CARE Routine 05/24/2024 8:47 PM COMMUNICATIONS SENIOR ASSOCIATE Abdominal pain EGFR Routine 05/24/2024 5:43 PM COMMUNICATIONS SENIOR ASSOCIATE DIFFERENTIAL AUTO Routine 05/24/2024 5:4 3 PM COMMUNICATIONS SENIOR ASSOCIATE LACTATE, WHOLE BLOOD STAT 05/24/2024 5:43 PM COMMUNICATIONS SENIOR ASSOCIATE AMYLASE Routine 05/24/2024 5:43 PM COMMUNICATIONS SENIOR ASSOCIATE PHOSPHORUS Routine 05/24/2024 5:43 PM COMMUNICATIONS SENIOR ASSOCIATE MAGNESIUM Routine 05/24/2024 5:43 PM COMMUNICATIONS SENIOR ASSOCIATE COMPREHENSIVE METABOLIC PANEL Routine 05/24/2024 5:43 PM COMMUNICATIONS SENIOR ASSOCIATE CBC WITH AUTO DIFFERENTIAL Routine 05/24/2024 5:43 PM COMMUNICATIONS SENIOR ASSOCIATE POCT GLUCOSE DEVICE Routine 05/24/2024 3 :52 PM COMMUNICATIONS SENIOR ASSOCIATE POCT GLUCOSE DEVICE Routine 05/24/2024 11:06 AM COMMUNICATIONS SENIOR ASSOCIATE POCT GLUCOSE DEVICE Routine 05/24/2024 7 :46 AM COMMUNICATIONS SENIOR ASSOCIATE CRITICAL CARE Routine 05/24/2024 6:15 AM COMMUNICATIONS SENIOR ASSOCIATE Abdominal pain POCT GLUCOSE DEVICE Routine 05/24/2024 3 :23 AM COMMUNICATIONS SENIOR ASSOCIATE POCT GLUCOSE DEVICE Routine 05/23/2024 11:04 PM COMMUNICATIONS SENIOR ASSOCIATE EGFR STAT 05/23/2024 8:33 PM COMMUNICATIONS SENIOR ASSOCIATE DIFFERENTIAL AUTO STAT 05/23/2024 8:3 3 PM COMMUNICATIONS SENIOR ASSOCIATE PROTIME-INR STAT 05/23/2024 8:33 PM COMMUNICATIONS SENIOR ASSOCIATE APTT STAT 05/23/2024 8:33 PM COMMUNICATIONS SENIOR ASSOCIATE TYPE AND SCREEN Timed 05/23/2024 8:33 PM COMMUNICATIONS SENIOR ASSOCIATE CBC WITH AUTO DIFFERENTIAL STAT 05/23/2024 8:33 PM COMMUNICATIONS SENIOR ASSOCIATE CREATINE KINASE (CK), TOTAL STAT 05/23/2024 8:33 PM COMMUNICATIONS SENIOR ASSOCIATE LACTATE STAT 05/23/2024 8:33 PM COMMUNICATIONS SENIOR ASSOCIATE CALCIUM, IONIZED STAT 05/23/2024 8:33 PM COMMUNICATIONS SENIOR ASSOCIATE PHOSPHORUS STAT 05/23/2024 8:33 PM COMMUNICATIONS SENIOR ASSOCIATE MAGNESIUM STAT 05/23/2024 8:33 PM COMMUNICATIONS SENIOR ASSOCIATE COMPREHENSIVE METABOLIC PANEL STAT 05/23/2024 8:[address]S [address]ENIOR ASSOCI[address] BODY OUTSIDE REFERENCE Routine 05/23/2024 8:[address]S [address]ENIOR ASSOCI[address] CT BODY OUTSIDE CONSULT Routine 05/23/2024 8:18 PM COMMUNICATIONS SENIOR ASSOCIATE POCT GLUCOSE DEVICE Routine 05/23/2024 7 :47 PM COMMUNICATIONS SENIOR ASSOCIATE POCT RAPID HIV ANTIBODY COMMUNITY SCREENING-PAPA ELIGIBLE Routine 05/21/2024 7:35 PM COMMUNICATIONS SENIOR ASSOCIATE OXYCODONE CONFIRMATION, URINE Routine 05/21/2024 5:34 PM COMMUNICATIONS SENIOR ASSOCIATE FENTANYL CONFIRMATION, MS URINE Routine 05/21/2024 5:34 PM COMMUNICATIONS SENIOR ASSOCIATE AMPHETAMINE, URINE, CONFIRMATION Routine 05/21/2024 5:34 PM COMMUNICATIONS SENIOR ASSOCIATE URINALYSIS, MICROSCOPIC ONLY STAT 05/21/2024 5:34 PM COMMUNICATIONS SENIOR ASSOCIATE DRUGS OF ABUSE SCREEN, URINE WITH REFLEX CONFIRMATION Routine 05/21/2024 5:34 PM COMMUNICATIONS SENIOR ASSOCIATE URINALYSIS AND REFLEX TO MICROSCOPIC STAT 05/21/2024 5:34 PM COMMUNICATIONS SENIOR ASSOCIATE SEPSIS LACTATE WITH REFLEX STAT 05/21/2024 4:33 PM COMMUNICATIONS SENIOR ASSOCIATE EGFR STAT 05/21/2024 3:41 PM COMMUNICATIONS SENIOR ASSOCIATE DIFFERENTIAL AUTO STAT 05/21/2024 3:4 1 PM COMMUNICATIONS SENIOR ASSOCIATE LIPASE STAT 05/21/2024 3:41 PM COMMUNICATIONS SENIOR ASSOCIATE COMPREHENSIVE METABOLIC PANEL STAT 05/21/2024 3:41 PM COMMUNICATIONS SENIOR ASSOCIATE CBC WITH AUTO DIFFERENTIAL STAT 05/21/2024 3:41 PM COMMUNICATIONS SENIOR ASSOCIATE ECG 12-LEAD STAT 05/21/2024 2:24 PM COMMUNICATIONS SENIOR ASSOCIATE ECG 12-LEAD STAT 05/19/2024 11:55 PM COMMUNICATIONS SENIOR ASSOCIATE XR CHEST PA LATERAL 2 VIEWS ED 05/19/2024 10:34 PM COMMUNICATIONS SENIOR ASSOCIATE CTA CHEST ABDOMEN PELVIS ED 05/19/2024 10:20 PM COMMUNICATIONS SENIOR ASSOCIATE EGFR STAT 05/19/2024 9:12 PM COMMUNICATIONS SENIOR ASSOCIATE DIFFERENTIAL AUTO Timed 05/19/2024 9:1 2 PM COMMUNICATIONS SENIOR ASSOCIATE TROPONIN I HIGH-SENSITIVITY SERIES (BASELINE, 2HR, 4HR, 6HR) STAT 05/19/2024 9:12 PM COMMUNICATIONS SENIOR ASSOCIATE TYPE AND SCREEN STAT 05/19/2024 9:12 PM COMMUNICATIONS SENIOR ASSOCIATE APTT STAT 05/19/2024 9:12 PM COMMUNICATIONS SENIOR ASSOCIATE PROTIME-INR STAT 05/19/2024 9:12 PM COMMUNICATIONS SENIOR ASSOCIATE COMPREHENSIVE METABOLIC PANEL STAT 05/19/2024 9:12 PM COMMUNICATIONS SENIOR ASSOCIATE CBC WITH AUTO DIFFERENTIAL Timed 05/19/2024 9:12 PM COMMUNICATIONS SENIOR ASSOCIATE POC ISTAT Routine 03/07/2024 12:09 PM CDT [...] Maintenance Results * eGFR (05/28/2024 3:36 AM COMMUNICATIONS SENIOR ASSOCIATE) eGFR >90 >=60 mL/min/1. 73 m2 Comment: [...] last reviewed 2021. Blood 05/28/2024 3:36 AM COMMUNICATIONS SENIOR ASSOCIATE 05/28/2024 4:30 AM COMMUNICATIONS SENIOR ASSOCIATE us Leo aMnzano MD LAB BLOOD ORDERABLES Final Result [facility] Department [place] [address] * (ABNORMAL) Lidocaine level (05/28/2024 3:36 AM COMMUNICATIONS SENIOR ASSOCIATE) Lidocaine (Xylocaine) <1.0(L) 1.5 - 5.0 mcg/mL Blood 05/28/2024 3:36 AM COMMUNICATIONS SENIOR ASSOCIATE 05/28/2024 4:30 AM COMMUNICATIONS SENIOR ASSOCIATE Gonzalez Lamar DO LAB BLOOD ORDERABLES Fin al Result Performing Organization Address [facility] Co de Phone Number [facility] [place] [address] * (ABNORMAL) CBC without differential (05/28/2024 3:36 AM COMMUNICATIONS SENIOR ASSOCIATE) Pathologist [facility] WBC 5.0 3.8 - 9.9 K/cumm Hgb 11.7(L) 13.0 - 17.5 g/dL [facility] Hct 35.3(L) 38.9 - 50.3 % [facility] Plt 240 150 - 400 K/cumm [facility] MPV 9.5 9.1 - 12.3 fL [facility] RBC 3.82(L) 4.30 - 5.80 M/cumm [facility] MCV 92.4 81.3 - 96.4 fL [facility] MCH 30.6 27.1 - 33.3 pg [facility] MCHC 33.1 32.3 - 35.7 g/dL [facility] RDW CV 13.3 11.1 - 14.9 % [facility] RDW SD 45.1 35.7 - 48.1 fL [facility] NRBC abs 0.00 0.00 - 0.01 K/cumm [facility] Blood 05/28/2024 3:36 AM COMMUNICATIONS SENIOR ASSOCIATE 05/28/2024 4:32 AM COMMUNICATIONS SENIOR ASSOCIATE us Leo Manzano MD LAB BLOOD ORDERABLES Final Result Performing Organization Address [facility] Co de Phone Number [facility] [place] [address] * Basic metabolic panel (05/28/2024 3:36 AM COMMUNICATIONS SENIOR ASSOCIATE) Pathologist [facility] Sodium 140 135 - 145 mmol/L Potassium, pl 4.0 3.3 - 4.9 mmol/L [facility] Chloride 103 97 - 110 mmol/L [facility] CO2 25 22 - 32 mmol/L [facility] Anion gap 12 2 - 15 mmol/L [facility] BUN 18 6 - 25 mg/dL [facility] Creatinine 1.10 0.80 - 1.30 mg/dL [facility] Glucose 85 70 - 199 mg/dL [facility] Comment: Interpretive Data Fasting glucose [...] 2022. Calcium 9.1 8.5 - 10.3 mg/dL [facility] Blood 05/28/2024 3:36 AM COMMUNICATIONS SENIOR ASSOCIATE 05/28/2024 4:30 AM COMMUNICATIONS SENIOR ASSOCIATE us Leo Manzano MD LAB BLOOD ORDERABLES Final Result Performing Organization Address [facility] Co de Phone Number [facility] Department [place] [address] * Lidocaine level (05/27/2024 3:29 AM COMMUNICATIONS SENIOR ASSOCIATE) Pathologist [facility] Lidocaine (Xylocaine) 1.5 1.5 - 5.0 mcg/mL Blood 05/27/2024 3:29 AM COMMUNICATIONS SENIOR ASSOCIATE 05/27/2024 4:21 AM COMMUNICATIONS SENIOR ASSOCIATE us Gonzalez Lamar DO LAB BLOOD ORDERABLES Fin al Result Performing Organization Address [facility] Co de Phone Number [facility] Department [place] [address] * Type and screen (05/27/2024 3:29 AM COMMUNICATIONS SENIOR ASSOCIATE) Ellen, indirect Negative ABO Rh A Positive [facility] Blood 05/27/2024 3:29 AM COMMUNICATIONS SENIOR ASSOCIATE 05/27/2024 4:33 AM COMMUNICATIONS SENIOR ASSOCIATE Narrative JAIRON ERWIN - 05/27/2024 5:33 AM COMMUNICATIONS SENIOR ASSOCIATE Has the patient had Daratumumab or Isatuximab in the past 6 months?->Unknown us Moriah Amin PAY PER CLICK STRATEGIST LAB BLOOD BANK TEST ORDERABLE S Final Result [facility] [place] [address] * eGFR (05/26/2024 4:38 AM COMMUNICATIONS SENIOR ASSOCIATE) eGFR 86 >=60 mL/min/1. 73 m2 Comment: [...] last reviewed 2021. Blood 05/26/2024 4:38 AM COMMUNICATIONS SENIOR ASSOCIATE 05/26/2024 5:46 AM COMMUNICATIONS SENIOR ASSOCIATE Moriah Amin PAY PER CLICK STRATEGIST LAB BLOOD ORDERABLES Final Re sult Performing Organization Address City/[facility]/ZIP Co de Phone Number [facility] [place] [address] * Lidocaine level (05/26/2024 4:38 AM COMMUNICATIONS SENIOR ASSOCIATE) Pathologist [facility] Lidocaine (Xylocaine) 1.8 1.5 - 5.0 mcg/mL Blood 05/26/2024 4:38 AM COMMUNICATIONS SENIOR ASSOCIATE 05/26/2024 5:46 AM COMMUNICATIONS SENIOR ASSOCIATE Gonzalez Lamar DO LAB BLOOD ORDERABLES Fin al Result Performing Organization Address [facility] Co de Phone Number [facility] [place] [address] * (ABNORMAL) CBC without differential (05/26/2024 4:38 AM COMMUNICATIONS SENIOR ASSOCIATE) [facility] WBC 5.5 3.8 - 9.9 K/cumm Hgb 11.5(L) 13.0 - 17.5 g/dL [facility] Hct 34.0(L) 38.9 - 50.3 % [facility] Plt 222 150 - 400 K/cumm [facility] MPV 9.7 9.1 - 12.3 fL [facility] RBC 3.67(L) 4.30 - 5.80 M/cumm [facility] MCV 92.6 81.3 - 96.4 fL [facility] MCH 31.3 27.1 - 33.3 pg [facility] MCHC 33.8 32.3 - 35.7 g/dL [facility] RDW CV 13.3 11.1 - 14.9 % [facility] RDW SD 45.5 35.7 - 48.1 fL [facility] NRBC abs 0.00 0.00 - 0.01 K/cumm [facility] Blood 05/26/2024 4:38 AM COMMUNICATIONS SENIOR ASSOCIATE 05/26/2024 5:46 AM COMMUNICATIONS SENIOR ASSOCIATE Moriah Amin PAY PER CLICK STRATEGIST LAB BLOOD ORDERABLES Final Re sult Performing Organization Address [facility] Co de Phone Number [facility] [place] [address] * Basic metabolic panel (05/26/2024 4:38 AM COMMUNICATIONS SENIOR ASSOCIATE) [facility] Sodium 141 135 - 145 mmol/L Potassium, pl 3.9 3.3 - 4.9 mmol/L [facility] Chloride 107 97 - 110 mmol/L [facility] CO2 26 22 - 32 mmol/L [facility] Anion gap 8 2 - 15 mmol/L [facility] BUN 15 6 - 25 mg/dL [facility] Creatinine 1.16 0.80 - 1.30 mg/dL [facility] Glucose 78 70 - 199 mg/dL [facility] Comment: Interpretive Data Fasting glucose [...] 2022. Calcium 8.6 8.5 - 10.3 mg/dL [facility] Blood 05/26/2024 4:38 AM COMMUNICATIONS SENIOR ASSOCIATE 05/26/2024 5:46 AM COMMUNICATIONS SENIOR ASSOCIATE Moriah Amin NP LAB BLOOD ORDERABLES Final Re sult Performing Organization Address [facility] Co de Phone Number [facility] Department [place] [address] * eGFR (05/25/2024 4:20 PM COMMUNICATIONS SENIOR ASSOCIATE) eGFR >90 >=60 mL/min/1. 73 m2 Comment: [...] last reviewed 2021. Blood 05/25/2024 4:20 PM COMMUNICATIONS SENIOR ASSOCIATE 05/25/2024 4:33 PM COMMUNICATIONS SENIOR ASSOCIATE us Moriah Amin PAY PER CLICK STRATEGIST LAB BLOOD ORDERABLES Final Re sult [facility] Department of Laboratories [place], [place] [id number] * Lidocaine level (05/25/2024 4:20 PM COMMUNICATIONS SENIOR ASSOCIATE) Lidocaine (Xylocaine) 2.1 1.5 - 5.0 mcg/mL Blood 05/25/2024 4:20 PM COMMUNICATIONS SENIOR ASSOCIATE 05/25/2024 4:33 PM COMMUNICATIONS SENIOR ASSOCIATE Narrative [facility] - 05/25/2024 5:02 PM COMMUNICATIONS SENIOR ASSOCIATE Draw 24 hours after infusion started. Moriah Amin PAY PER CLICK STRATEGIST LAB BLOOD ORDERABLES Final Re sult Performing Organization Address [facility] Co de Phone Number [facility] [place] [address] * (ABNORMAL) CBC without differential (05/25/2024 4:20 PM COMMUNICATIONS SENIOR ASSOCIATE) Pathologist [facility] WBC 6.1 3.8 - 9.9 K/cumm Hgb 12.1(L) 13.0 - 17.5 g/dL [facility] Hct 36.3(L) 38.9 - 50.3 % [facility] Plt 246 150 - 400 K/cumm [facility] MPV 9.6 9.1 - 12.3 fL [facility] RBC 4.03(L) 4.30 - 5.80 M/cumm [facility] MCV 90.1 81.3 - 96.4 fL [facility] MCH 30.0 27.1 - 33.3 pg [facility] MCHC 33.3 32.3 - 35.7 g/dL [facility] RDW CV 13.3 11.1 - 14.9 % [facility] RDW SD 44.0 35.7 - 48.1 fL [facility] NRBC abs 0.00 0.00 - 0.01 K/cumm [facility] Blood 05/25/2024 4:20 PM COMMUNICATIONS SENIOR ASSOCIATE 05/25/2024 4:33 PM COMMUNICATIONS SENIOR ASSOCIATE Moriah Amin PAY PER CLICK STRATEGIST LAB BLOOD ORDERABLES Final Re sult Performing Organization Address City/[facility]/ZIP Co de Phone Number [facility] [place] [address] * Basic metabolic panel (05/25/2024 4:20 PM COMMUNICATIONS SENIOR ASSOCIATE) Pathologist [facility] Sodium 140 135 - 145 mmol/L Potassium, pl 3.9 3.3 - 4.9 mmol/L [facility] Chloride 106 97 - 110 mmol/L [facility] CO2 25 22 - 32 mmol/L [facility] Anion gap 9 2 - 15 mmol/L [facility] BUN 10 6 - 25 mg/dL [facility] Creatinine 0.92 0.80 - 1.30 mg/dL [facility] Glucose 98 70 - 199 mg/dL [facility] Comment: Interpretive Data Fasting glucose [...] 2022. Calcium 8.9 8.5 - 10.3 mg/dL [facility] Blood 05/25/2024 4:20 PM COMMUNICATIONS SENIOR ASSOCIATE 05/25/2024 4:33 PM COMMUNICATIONS SENIOR ASSOCIATE us Moriah Amin NP LAB BLOOD ORDERABLES Final Re sult [facility] [place] [address] * Critical Care (05/25/2024 8:12 AM COMMUNICATIONS SENIOR ASSOCIATE) Narrative Rafiq Rodriguez MD - 05/25/2024 8:12 AM COMMUNICATIONS SENIOR ASSOCIATE Moriah Amin NP ? 05/25/2024 ??3:35 PM [...] plan with the patient's team and other medical/financial sales consultant staff. This time was in addition to and separate from care provided by other practitioners on this day of service. ?? us Moriah Amin PAY PER CLICK STRATEGIST IN CLINIC/BEDSIDE ORDERABLES Final Result * POCT glucose (05/25/2024 4:16 AM COMMUNICATIONS SENIOR ASSOCIATE) Glucose, POC 117 70 - 199 mg/dL Blood 05/25/2024 4:16 AM COMMUNICATIONS SENIOR ASSOCIATE 05/25/2024 4:16 AM COMMUNICATIONS SENIOR ASSOCIATE Gonzalez Lamar DO LAB POCT ORDERABLES - DE VICE Final Result Performing Organization Address [facility] Co la Phone [facility] [place] [address] * POCT glucose (05/24/2024 11:36 PM COMMUNICATIONS SENIOR ASSOCIATE) Glucose, POC 116 70 - 199 mg/dL Blood 05/24/2024 11:3 6 PM COMMUNICATIONS SENIOR ASSOCIATE 05/24/2024 11:36 PM COMMUNICATIONS SENIOR ASSOCIATE Gonzalez Lamar DO LAB POCT ORDERABLES - DE VICE Final Result Performing Organization Address [facility] Co la Phone Number [facility] [place] [address] * POCT glucose (05/24/2024 8:50 PM COMMUNICATIONS SENIOR ASSOCIATE) Glucose, POC 123 70 - 199 mg/dL Blood 05/24/2024 8:50 PM COMMUNICATIONS SENIOR ASSOCIATE 05/24/2024 8:50 PM COMMUNICATIONS SENIOR ASSOCIATE Gonzalez Lamar DO LAB POCT ORDERABLES - DE VICE Final Result Performing Organization Address [facility] Co de Phone Number [facility] [place] [address] * Critical Care (05/24/2024 8:47 PM COMMUNICATIONS SENIOR ASSOCIATE) Narrative Ag Lemos MD - 05/24/2024 8:47 PM COMMUNICATIONS SENIOR ASSOCIATE Ag Lemos MD ? 05/25/2024 ??6:53 AM [...] plan with the ICU team and other medical/financial sales consultant staff, making frequent assessments and decisions [...] Final Result * eGFR (05/24/2024 5:43 PM COMMUNICATIONS SENIOR ASSOCIATE) [facility] eGFR >90 >=60 mL/min/1. 73 m2 Comment: [...] last reviewed 2021. Blood 05/24/2024 5:43 PM COMMUNICATIONS SENIOR ASSOCIATE 05/24/2024 6:00 PM COMMUNICATIONS SENIOR ASSOCIATE us Gonzalez Lamar DO LAB BLOOD ORDERABLES Fin al Result [facility] [place] [address] * Differential, auto (05/24/2024 5:43 PM COMMUNICATIONS SENIOR ASSOCIATE) Pathologist [facility] Neutrophil abs 4.9 1.5 - 6.5 K/cumm Imm gran abs 0.0 0.0 - 0.1 K/cumm [facility] Lymphocyte abs 1.4 0.8 - 3.3 K/cumm [facility] Monocyte abs 0.8 0.2 - 0.8 K/cumm [facility] Eosinophil abs 0.1 0.0 - 0.5 K/cumm [facility] Basophil abs 0.1 0.0 - 0.1 K/cumm [facility] Neutrophil pct 67.4 % [facility] Comment: Interpretive Data Percent cell count reference ranges are not reported, since discordance with absolute values may lead to misinterpretation of CBC data. Current Interpretive Data was last revised on 2017. Imm gran pct 0.4 % [facility] Comment: Interpretive Data Percent cell count reference ranges are not reported, since discordance with absolute values may lead to misinterpretation of CBC data. Current Interpretive Data was last revised on 2017. Lymphocyte pct 19.4 % [facility] Comment: Interpretive Data Percent cell count reference ranges are not reported, since discordance with absolute values may lead to misinterpretation of CBC data. Current Interpretive Data was last revised on 2017. Monocyte pct 11.3 % [facility] Comment: Interpretive Data Percent cell count reference ranges are not reported, since discordance with absolute values may lead to misinterpretation of CBC data. Current Interpretive Data was last revised on 2017. Eosinophil pct 0.8 % [facility] Comment: Interpretive Data Percent cell count reference ranges are not reported, since discordance with absolute values may lead to misinterpretation of CBC data. Current Interpretive Data was last revised on 2017. Basophil pct 0.7 % [facility] Comment: Interpretive Data Percent cell count reference ranges are not reported, since discordance with absolute values may lead to misinterpretation of CBC data. Current Interpretive Data was last revised on 2017. Blood 05/24/2024 5:43 PM COMMUNICATIONS SENIOR ASSOCIATE 05/24/2024 6:00 PM COMMUNICATIONS SENIOR ASSOCIATE us Gonzalez Lamar DO LAB BLOOD ORDERABLES Fin al Result [facility] [place] [address] * (ABNORMAL) CBC with auto differential (05/24/2024 5:43 PM COMMUNICATIONS SENIOR ASSOCIATE) WBC 7.2 3.8 - 9.9 K/cumm Hgb 11.5(L) 13.0 - 17.5 g/dL [facility] Hct 34.7(L) 38.9 - 50.3 % [facility] Plt 233 150 - 400 K/cumm [facility] MPV 9.2 9.1 - 12.3 fL [facility] RBC 3.77(L) 4.30 - 5.80 M/cumm [facility] MCV 92.0 81.3 - 96.4 fL [facility] MCH 30.5 27.1 - 33.3 pg [facility] MCHC 33.1 32.3 - 35.7 g/dL [facility] RDW CV 13.0 11.1 - 14.9 % [facility] RDW SD 43.8 35.7 - 48.1 fL [facility] NRBC abs 0.00 0.00 - 0.01 K/cumm [facility] Blood 05/24/2024 5:43 PM COMMUNICATIONS SENIOR ASSOCIATE 05/24/2024 6:00 PM COMMUNICATIONS SENIOR ASSOCIATE Gonzalez Lamar DO LAB BLOOD ORDERABLES Fin al Result Performing Organization Address [facility] de Phone Number [facility] [place] [address] * Lactate, whole blood (05/24/2024 5:43 PM COMMUNICATIONS SENIOR ASSOCIATE) Lactate, bld 0.7 0.7 - 2.0 mmol/L Blood 05/24/2024 5:43 PM COMMUNICATIONS SENIOR ASSOCIATE 05/24/2024 5:50 PM COMMUNICATIONS SENIOR ASSOCIATE Moriah Amin PAY PER CLICK STRATEGIST LAB BLOOD ORDERABLES Final Re sult Performing Organization Address [facility] de Phone Number [facility] [place] [address] * Phosphorus (05/24/2024 5:43 PM COMMUNICATIONS SENIOR ASSOCIATE) Phosphorus, pl 2.7 2.3 - 4.5 mg/dL Blood 05/24/2024 5:43 PM COMMUNICATIONS SENIOR ASSOCIATE 05/24/2024 6:00 PM COMMUNICATIONS SENIOR ASSOCIATE Gonzalez Lamar DO LAB BLOOD ORDERABLES Fin al Result Performing Organization Address [facility] Co de Phone Number [facility] [place] [address] * Magnesium (05/24/2024 5:43 PM COMMUNICATIONS SENIOR ASSOCIATE) [facility] Magnesium 2.0 1.4 - 2.5 mg/dL Blood 05/24/2024 5:43 PM COMMUNICATIONS SENIOR ASSOCIATE 05/24/2024 6:00 PM COMMUNICATIONS SENIOR ASSOCIATE Gonzalez Lamar DO LAB BLOOD ORDERABLES Fin al Result Performing Organization Address [facility] de Phone Number [facility] [place] [address] * Amylase (05/24/2024 5:43 PM COMMUNICATIONS SENIOR ASSOCIATE) [facility] Amylase 35 30 - 99 Units/L Blood 05/24/2024 5:43 PM COMMUNICATIONS SENIOR ASSOCIATE 05/24/2024 6:00 PM COMMUNICATIONS SENIOR ASSOCIATE Moriah Amin PAY PER CLICK STRATEGIST LAB BLOOD ORDERABLES Final Re sult Performing Organization Address [facility] de Phone Number [facility] [place] [address] * Comprehensive metabolic panel (05/24/2024 5:43 PM COMMUNICATIONS SENIOR ASSOCIATE) [facility] Sodium 140 135 - 145 mmol/L Potassium, pl 3.9 3.3 - 4.9 mmol/L [facility] Chloride 105 97 - 110 mmol/L [facility] CO2 25 22 - 32 mmol/L [facility] Anion gap 10 2 - 15 mmol/L [facility] BUN 6 6 - 25 mg/dL [facility] Creatinine 0.88 0.80 - 1.30 mg/dL [facility] Glucose 86 70 - 199 mg/dL [facility] Comment: Interpretive Data Fasting glucose [...] Calcium 8.9 8.5 - 10.3 mg/dL [facility] Bilirubin, total 0.8 0.1 - 1.2 mg/dL [facility] Protein, pl 6.7 6.5 - 8.5 g/dL [facility] Albumin 4.1 3.5 - 5.0 g/dL [facility] Alk phos 81 40 - 130 Units/L [facility] ALT 15 7 - 55 Units/L [facility] AST 17 10 - 50 Units/L [facility] Blood 05/24/2024 5:43 PM COMMUNICATIONS SENIOR ASSOCIATE 05/24/2024 6:00 PM COMMUNICATIONS SENIOR ASSOCIATE Gonzalez Lamar DO LAB BLOOD ORDERABLES Fin al Result [facility] Department [place] [address] * POCT glucose (05/24/2024 3:52 PM COMMUNICATIONS SENIOR ASSOCIATE) Glucose, POC 84 70 - 199 mg/dL Blood 05/24/2024 3:52 PM COMMUNICATIONS SENIOR ASSOCIATE 05/24/2024 3:52 PM COMMUNICATIONS SENIOR ASSOCIATE Gonzalez Lamar DO LAB POCT ORDERABLES - DE VICE Final Result Performing Organization Address [facility]/ZIP Co de Phone Number [facility] Department [place] [address] * POCT glucose (05/24/2024 11:06 AM COMMUNICATIONS SENIOR ASSOCIATE) Glucose, POC 138 70 - 199 mg/dL Blood 05/24/2024 11:0 6 AM COMMUNICATIONS SENIOR ASSOCIATE 05/24/2024 11:06 AM COMMUNICATIONS SENIOR ASSOCIATE us Gonzalez Pinaaamir DO LAB POCT ORDERABLES - DE VICE Final Result Performing Organization Address [facility] Co la Phone Number [facility] [place] [address] * POCT glucose (05/24/2024 7:46 AM COMMUNICATIONS SENIOR ASSOCIATE) Glucose, POC 86 70 - 199 mg/dL Blood 05/24/2024 7:46 AM COMMUNICATIONS SENIOR ASSOCIATE 05/24/2024 7:46 AM COMMUNICATIONS SENIOR ASSOCIATE Gonzalez Lamar DO LAB POCT ORDERABLES - DE VICE Final Result Performing Organization Address [facility] Phone Number [facility] [place] [address] * Critical Care (05/24/2024 6:15 AM COMMUNICATIONS SENIOR ASSOCIATE) Narrative Rafiq Rodriguez MD - 05/24/2024 6:15 AM COMMUNICATIONS SENIOR ASSOCIATE Moriah Amin NP ? 05/24/2024 ??5:42 PM [...] plan with the ICU team and other medical/financial sales consultant staff, making frequent assessments and decisions [...] the following conditions: ?? us Moriah Amin PAY PER CLICK STRATEGIST IN CLINIC/BEDSIDE ORDERABLES Final Result * POCT glucose (05/24/2024 3:23 AM COMMUNICATIONS SENIOR ASSOCIATE) Glucose, POC 85 70 - 199 mg/dL Blood 05/24/2024 3:23 AM COMMUNICATIONS SENIOR ASSOCIATE 05/24/2024 3:23 AM COMMUNICATIONS SENIOR ASSOCIATE us Gonzalez Lamar DO LAB POCT ORDERABLES - DE VICE Final Result Performing Organization Address [facility] Co de Phone Number [facility] [place] [address] * POCT glucose (05/23/2024 11:04 PM COMMUNICATIONS SENIOR ASSOCIATE) Glucose, POC 84 70 - 199 mg/dL Blood 05/23/2024 11:0 4 PM COMMUNICATIONS SENIOR ASSOCIATE 05/23/2024 11:04 PM COMMUNICATIONS SENIOR ASSOCIATE Gonzalez Lamar DO LAB POCT ORDERABLES - DE VICE Final Result Performing Organization Address [facility] Phone Number [facility] [place] [address] * Lactate (05/23/2024 8:33 PM COMMUNICATIONS SENIOR ASSOCIATE) Lactate 0.7 0.7 - 2.0 mmol/L Blood 05/23/2024 8:33 PM COMMUNICATIONS SENIOR ASSOCIATE 05/23/2024 9:39 PM COMMUNICATIONS SENIOR ASSOCIATE Gonzalez Lamar DO LAB BLOOD ORDERABLES Fin al Result Performing Organization Address [facility] Co de Phone Number [facility] [place] [address] * eGFR (05/23/2024 8:33 PM COMMUNICATIONS SENIOR ASSOCIATE) eGFR >90 >=60 mL/min/1. 73 m2 Comment: [...] last reviewed 2021. Blood 05/23/2024 8:33 PM COMMUNICATIONS SENIOR ASSOCIATE 05/23/2024 9:17 PM COMMUNICATIONS SENIOR ASSOCIATE us Gonzalez Lamar DO LAB BLOOD ORDERABLES Fin al Result Performing Organization Address City/State/[facility] Co de Phone Number [facility] [place] [address] * Differential, auto (05/23/2024 8:33 PM COMMUNICATIONS SENIOR ASSOCIATE) Neutrophil abs 3.9 1.5 - 6.5 K/cumm Imm gran abs 0.0 0.0 - 0.1 K/cumm [facility] Lymphocyte abs 1.9 0.8 - 3.3 K/cumm [facility] Monocyte abs 0.8 0.2 - 0.8 K/cumm [facility] Eosinophil abs 0.0 0.0 - 0.5 K/cumm [facility] Basophil abs 0.0 0.0 - 0.1 K/cumm [facility] Neutrophil pct 58.1 % [facility] Comment: Interpretive Data Percent cell count reference ranges are not reported, since discordance with absolute values may lead to misinterpretation of CBC data. Current Interpretive Data was last revised on 2017. Imm gran pct 0.4 % [facility] Comment: Interpretive Data Percent cell count reference ranges are not reported, since discordance with absolute values may lead to misinterpretation of CBC data. Current Interpretive Data was last revised on 2017. Lymphocyte pct 28.1 % [facility] Comment: Interpretive Data Percent cell count reference ranges are not reported, since discordance with absolute values may lead to misinterpretation of CBC data. Current Interpretive Data was last revised on 2017. Monocyte pct 12.4 % [facility] Comment: Interpretive Data Percent cell count reference ranges are not reported, since discordance with absolute values may lead to misinterpretation of CBC data. Current Interpretive Data was last revised on 2017. Eosinophil pct 0.4 % [facility] Comment: Interpretive Data Percent cell count reference ranges are not reported, since discordance with absolute values may lead to misinterpretation of CBC data. Current Interpretive Data was last revised on 2017. Basophil pct 0.6 % [facility] Comment: Interpretive Data Percent cell count reference ranges are not reported, since discordance with absolute values may lead to misinterpretation of CBC data. Current Interpretive Data was last revised on 2017. Blood 05/23/2024 8:33 PM COMMUNICATIONS SENIOR ASSOCIATE 05/23/2024 9:29 PM COMMUNICATIONS SENIOR ASSOCIATE us Gonzalez Lamar DO LAB BLOOD ORDERABLES Fin al Result [facility] [place] [address] * (ABNORMAL) Calcium, ionized (05/23/2024 8:33 PM COMMUNICATIONS SENIOR ASSOCIATE) Calcium, Ionized 4.48(L) 4.50 - 5.10 mg/dL Blood 05/23/2024 8:33 PM COMMUNICATIONS SENIOR ASSOCIATE 05/23/2024 9:17 PM COMMUNICATIONS SENIOR ASSOCIATE Gonzalez Lamar DO LAB BLOOD ORDERABLES Fin al Result Performing Organization Address [facility] de Phone Number [facility] [place] [address] * (ABNORMAL) CBC with auto differential (05/23/2024 8:33 PM COMMUNICATIONS SENIOR ASSOCIATE) [facility] WBC 6.8 3.8 - 9.9 K/cumm Hgb 11.4(L) 13.0 - 17.5 g/dL [facility] Hct 33.7(L) 38.9 - 50.3 % [facility] Plt 237 150 - 400 K/cumm [facility] MPV 9.5 9.1 - 12.3 fL [facility] RBC 3.80(L) 4.30 - 5.80 M/cumm [facility] MCV 88.7 81.3 - 96.4 fL [facility] MCH 30.0 27.1 - 33.3 pg [facility] MCHC 33.8 32.3 - 35.7 g/dL [facility] RDW CV 13.0 11.1 - 14.9 % [facility] RDW SD 42.2 35.7 - 48.1 fL [facility] NRBC abs 0.00 0.00 - 0.01 K/cumm [facility] Blood 05/23/2024 8:33 PM COMMUNICATIONS SENIOR ASSOCIATE 05/23/2024 9:29 PM COMMUNICATIONS SENIOR ASSOCIATE Gonzalez Lamar DO LAB BLOOD ORDERABLES Fin al Result Performing Organization Address [facility] Co de Phone Number [facility] [place] [address] * aPTT (05/23/2024 8:33 PM COMMUNICATIONS SENIOR ASSOCIATE) [facility] aPTT 31 28 - 38 sec Comment: Interpretive Data Heparin therapeutic range: 66.0 - 100.0 seconds. Range based on correlation with therapeutic heparin activity range of 0.3 - 0.7 Units/mL. Current interpretive data was last revised on 2023. Blood 05/23/2024 8:33 PM COMMUNICATIONS SENIOR ASSOCIATE 05/23/2024 9:20 PM COMMUNICATIONS SENIOR ASSOCIATE Gonzalez Lamar DO LAB BLOOD ORDERABLES Fin al Result Performing Organization Address [facility] de Phone Number [facility] [place] [address] * (ABNORMAL) Protime-INR (05/23/2024 8:33 PM COMMUNICATIONS SENIOR ASSOCIATE) PT 14.6(H) 9.7 - 13.0 sec INR 1.34(H) 0.90 - 1.20 [facility] Comment: Interpretive data Oral anticoagulant therapeutic ranges: Venous thromboembolism prophylaxis or treatment: 2.0-3.0 CARDIOLOGY Standard range: 2.0-3.0 High-intensity range: 2.5-3.5 Refer to indication-specific guidelines for appropriate target ranges for prosthetic heart valve replacement. Current interpretive data was last revised on 2019. Blood 05/23/2024 8:33 PM COMMUNICATIONS SENIOR ASSOCIATE 05/23/2024 9:20 PM COMMUNICATIONS SENIOR ASSOCIATE Gonzalez Lamar DO LAB BLOOD ORDERABLES Fin al Result Performing Organization Address [facility] de Phone Number [facility] [place] [address] * Type and screen (05/23/2024 8:33 PM COMMUNICATIONS SENIOR ASSOCIATE) Ellen, indirect Negative ABO Rh A Positive [facility] Blood 05/23/2024 8:33 PM COMMUNICATIONS SENIOR ASSOCIATE 05/23/2024 9:31 PM COMMUNICATIONS SENIOR ASSOCIATE Narrative [facility] - 05/23/2024 10:36 PM COMMUNICATIONS SENIOR ASSOCIATE Has the patient had Daratumumab or Isatuximab in the past 6 months?->Unknown Moriah Amin PAY PER CLICK STRATEGIST LAB BLOOD BANK TEST ORDERABLE S Final Result Performing Organization Address [facility] Co de Phone Number [facility] [place] [address] * Phosphorus (05/23/2024 8:33 PM COMMUNICATIONS SENIOR ASSOCIATE) Phosphorus, pl 2.5 2.3 - 4.5 mg/dL Blood 05/23/2024 8:33 PM COMMUNICATIONS SENIOR ASSOCIATE 05/23/2024 9:17 PM COMMUNICATIONS SENIOR ASSOCIATE Gonzalez Lamar DO LAB BLOOD ORDERABLES Fin al Result Performing Organization Address [facility] de Phone Number [facility] [place] [address] * Magnesium (05/23/2024 8:33 PM COMMUNICATIONS SENIOR ASSOCIATE) Magnesium 2.0 1.4 - 2.5 mg/dL Blood 05/23/2024 8:33 PM COMMUNICATIONS SENIOR ASSOCIATE 05/23/2024 9:17 PM COMMUNICATIONS SENIOR ASSOCIATE Gonzalez Lamar DO LAB BLOOD ORDERABLES Fin al Result Performing Organization Address [facility] Co de Phone Number [facility] [place] [address] * Creatine kinase (CK), total (05/23/2024 8:33 PM COMMUNICATIONS SENIOR ASSOCIATE) CK 159 40 - 300 Units/L Blood 05/23/2024 8:33 PM COMMUNICATIONS SENIOR ASSOCIATE 05/23/2024 9:17 PM COMMUNICATIONS SENIOR ASSOCIATE Gonzalez Lamar DO LAB BLOOD ORDERABLES Fin al Result Performing Organization Address [facility] Co de Phone Number [facility] [place] [address] * (ABNORMAL) Comprehensive metabolic panel (05/23/2024 8:33 PM COMMUNICATIONS SENIOR ASSOCIATE) Sodium 141 135 - 145 mmol/L Potassium, pl 3.2(L) 3.3 - 4.9 mmol/L [facility] Chloride 105 97 - 110 mmol/L [facility] CO2 25 22 - 32 mmol/L [facility] Anion gap 11 2 - 15 mmol/L [facility] BUN 11 6 - 25 mg/dL [facility] Creatinine 1.03 0.80 - 1.30 mg/dL [facility] Glucose 84 70 - 199 mg/dL [facility] Comment: Interpretive Data Fasting glucose [...] 2022. Calcium 9.0 8.5 - 10.3 mg/dL [facility] Bilirubin, total 1.2 0.1 - 1.2 mg/dL [facility] Protein, pl 7.0 6.5 - 8.5 g/dL [facility] Albumin 4.2 3.5 - 5.0 g/dL [facility] Alk phos 83 40 - 130 Units/L [facility] ALT 15 7 - 55 Units/L [facility] AST 16 10 - 50 Units/L [facility] Blood 05/23/2024 8:33 PM COMMUNICATIONS SENIOR ASSOCIATE 05/23/2024 9:17 PM COMMUNICATIONS SENIOR ASSOCIATE us Gonzalez Lamar DO LAB BLOOD ORDERABLES Fin al Result [facility] [place] [address] * CT Body Outside Reference (05/23/2024 8:22 PM COMMUNICATIONS SENIOR ASSOCIATE) Impressions [facility] - 05/23/2024 8:22 PM COMMUNICATIONS SENIOR ASSOCIATE These images are for Reference purposes only and have not been reviewed by [facility] Radiology. ??There will be no report generated by a [facility] Radiologist. Narrative [facility] - 05/23/2024 8:22 PM COMMUNICATIONS SENIOR ASSOCIATE EXAMINATION: ??Images For Reference Purposes Only us Gadiel Ireland MD IMG CT PROCEDURES Final Result [facility] * CT Body Outside Consult (05/23/2024 8:18 PM COMMUNICATIONS SENIOR ASSOCIATE) Anatomical Region Laterality Modality Body N/A Computed Tomogra phy 05/24/2024 8:05 AM COMMUNICATIONS SENIOR ASSOCIATE Impressions 05/24/2024 8:05 AM COMMUNICATIONS SENIOR ASSOCIATE 1. ??Unchanged thoracoabdominal aortic dissection status post [...] images may or may not represent the [employer] source data set and thus may contain changes that may lower the accuracy of this second-opinion interpretation. Electronically signed by: Shahrzad Zimmerman M.D. Narrative 05/24/2024 8:05 AM COMMUNICATIONS SENIOR ASSOCIATE EXAMINATION: RADIOLOGY CONSULTATION ON OUTSIDE IMAGING STUDY STUDY INITIALLY PERFORMED: 05/23/2024 at [place]. TYPE OF STUDY: Multiple CT images of [...] IMAGING STUDY STUDY INITIALLY PERFORMED: 05/23/2024 at [place]. TYPE OF STUDY: Multiple CT images of [...] images may or may not represent the [employer] source data set and thus may contain changes that may lower the accuracy of this second-opinion interpretation. Electronically signed by: Shahrzad Zimmerman M.D. Gadiel Ireland MD IMG CT PROCEDURES Final Result * POCT glucose (05/23/2024 7:47 PM COMMUNICATIONS SENIOR ASSOCIATE) Glucose, POC 80 70 - 199 mg/dL Blood 05/23/2024 7:47 PM COMMUNICATIONS SENIOR ASSOCIATE 05/23/2024 7:47 PM COMMUNICATIONS SENIOR ASSOCIATE Gonzalez Otoniel Wishy DO LAB POCT ORDERABLES - DE VICE Final Result [facility] [place] [address] * POCT Rapid HIV Antibody Community Screening-[facility] Eligible (05/21/2024 7:35 PM COMMUNICATIONS SENIOR ASSOCIATE) [facility] Rapid HIV, POC Negative Negative Lot Number [id number] QC Control Line Acceptable Blood 05/21/2024 7:35 PM COMMUNICATIONS SENIOR ASSOCIATE Marcus Amaya MD POINT OF CARE TEST ORD ERABLES Final Result * (ABNORMAL) Oxycodone Confirmation, Urine (05/21/2024 5:34 PM COMMUNICATIONS SENIOR ASSOCIATE) [facility] Oxycodone Conf, Ur Confirmed Positive(A) CutOff 50 [...] Performance characteristics were determined by the [facility] in a manner consistent with CLIA requirement and has not been cleared or approved by the U.S. Food and Drug Administration. Current interpretive data was last revised 2020. Urine 05/21/2024 5:34 PM COMMUNICATIONS SENIOR ASSOCIATE 05/21/2024 5:46 PM COMMUNICATIONS SENIOR ASSOCIATE Marcus Amaya MD LAB URINE ORDERABLES F inal Result Performing Organization Address City/[facility]/ZIP Co de Phone Number [facility] [place] [address] * (ABNORMAL) Fentanyl Confirmation, Urine (05/21/2024 5:34 PM COMMUNICATIONS SENIOR ASSOCIATE) [facility] Fentanyl Conf, Ur Confirmed Positive(A) Cutoff 0.3ng/mL Acetylfentanyl Conf, Ur Does Not Confirm Cutoff 1 ng/mL [facility] Acrylfentanyl Conf, Ur Does Not Confirm Cutoff 1 ng/mL [facility] Furanylfentanyl Conf, Ur Does Not Confirm Cutoff 1 ng/mL [facility] Fentanyl Metabolite (Norfentanyl) Conf, Ur Confirmed Positive(A) CutOff 5 ng/mL [facility] Xylazine MS Does Not Confirm Cutoff 1 ng/mL [facility] Comment: Interpretive Data This test detects the presence or absence of drug compounds using LC Tandem mass spectrometry and is not intended to assess compliance with prescribed medications. While this test is highly specific, false positive and false negative results may occur in very rare circumstances. Contact the laboratory for consultation, if needed. Performance characteristics were determined by the [facility] in a manner consistent with CLIA requirement and has not been cleared or approved by the U.S. Food and Drug Administration. Current interpretive data was last revised 2020. Urine 05/21/2024 5:34 PM COMMUNICATIONS SENIOR ASSOCIATE 05/21/2024 5:46 PM COMMUNICATIONS SENIOR ASSOCIATE Marcus Amaya MD LAB URINE ORDERABLES F inal Result [facility] [place] [address] * (ABNORMAL) Drugs of Abuse Screen, Urine with Reflex Confirmation (05/21/2024 5:34 PM COMMUNICATIONS SENIOR ASSOCIATE) Amphetamine, ur Screen Positive, presumptive (A) CutOff 500ng/mL Comment: Interpretive Data - Amphetamines: ??Samples containing greater than 500 ng/mL d-methamphetamine ??or other cross-reacting amphetamine compounds are reported as positive. ??Amphetamine immunoassays are subject to significant false positive rates due to cross-reactivity of non-amphetamine drugs. Confirmatory testing required for definitive results. Current Interpretive Data was last reviewed 2022. Barbiturates, ur Not Detected CutOff 200ng/mL [facility] Comment: Interpretive Data - Barbiturates: ??Samples containing greater than 200 ng/mL secobarbital or other cross-reacting barbiturate compounds are reported as positive. ??False positive and false negative results are possible. Confirmatory testing required for definitive results. Current Interpretive Data was last reviewed 2022. Benzodiazepines, ur Screen Positive, presumptive (A) CutOff 100ng/mL [facility] Comment: Interpretive Data - Benzodiazepines: ??Samples containing greater than 100 ng/mL nordiazepam or other cross-reacting compounds are reported as positive. False positive and false negative results are possible. Confirmatory testing required for definitive results. Current Interpretive Data was last reviewed 2022. Cannabinoids, ur Screen Positive, presumptive (A) CutOff 50 ng/mL [facility] Comment: Interpretive Data - Cannabinoids: ??Samples containing greater than 50 ng/mL delta-9 THC -COOH or other cross-reacting compounds are reported as positive. ??False positive and false negative results are possible. ??Confirmatory testing required for definitive results. Current Interpretive Data was last reviewed 2022. Cocaine, ur Not Detected CutOff 150ng/mL [facility] Comment: Interpretive Data - Cocaine: ??Samples containing greater than 150 ng/mL benzoylecgonine or other cross-reacting compounds are reported as positive. False positive and false negative results are possible. Confirmatory testing required for definitive results. Current Interpretive Data was last reviewed 2022. Fentanyl, Ur Screen Positive, presumptive (A) CutOff 5 ng/mL [facility] Comment: Interpretive Data - Fentanyl: ?? Samples containing greater than 5 ng/mL norfentanyl, fentanyl, or other cross-reacting fentanyl compounds are reported as positive. False positive and false negative results are possible. Confirmatory testing required for definitive results. Current Interpretive Data was last reviewed 2023. Methadone, ur Not Detected CutOff 300ng/mL [facility] Comment: Interpretive Data - Methadone: ??Samples containing greater than 300 ng/mL d,l-methadone or other cross-reacting compounds are reported as positive. ??False positive and false negative results are possible. Confirmatory testing required for definitive results. Current Interpretive Data was last reviewed 2022. Opiates, ur Not Detected CutOff 300ng/mL [facility] Comment: Interpretive Data - Opiates: ??Samples containing greater than 300 ng/mL morphine or other cross-reacting compounds are reported as positive. ??False positive and false negative results are possible. Confirmatory testing required for definitive results. Current Interpretive Data was last reviewed 2022. Oxycodone, ur Screen Positive, presumptive (A) CutOff 100ng/mL [facility] Comment: Interpretive Data - Oxycodone: ??Samples containing greater than 100 ng/mL oxycodone or other cross-reacting compounds are reported as ??positive. ??False positive and false negative results are possible. Confirmatory testing required for definitive results. Current Interpretive Data was last reviewed 2022. Phencyclidine, ur Not Detected CutOff 25 ng/mL [facility] Comment: Interpretive Data - Phencyclidine: ??Samples containing greater than 25 ng/mL phencyclidine or other cross-reacting compounds are reported as positive. ??False positive and false negative results are possible. Confirmatory testing required for definitive results. Current Interpretive Data was last reviewed 2022. Urine Creatinine 357 mg/dL [facility] Comment: Interpretive Data Urine Creatinine: < 10 mg/dL is extremely dilute = or > 10 but < 20 mg/dL is dilute = or > 20 mg/dL is normal Current Interpretive Data was last revised on 2017. Urine 05/21/2024 5:34 PM COMMUNICATIONS SENIOR ASSOCIATE 05/21/2024 5:46 PM COMMUNICATIONS SENIOR ASSOCIATE Narrative [facility] - 05/21/2024 6:16 PM COMMUNICATIONS SENIOR ASSOCIATE Drug of Abuse screening is performed by immunoassay for medical purposes only. ??This is not to be used for Pain Management purposes. ??If Detected, confirmation testing will be performed for Amphetamines, Cocaine, Fentanyl, Methadone, Opiates, Oxycodone or Phencyclidine. Marcus Amaya MD LAB URINE ORDERABLES F inal Result [facility] [place] [address] * (ABNORMAL) Urinalysis reflex to microscopic (05/21/2024 5:34 PM COMMUNICATIONS SENIOR ASSOCIATE) Color, ur Yellow Yellow Clarity, ur Clear Clear [facility] Specific gravity, ur 1.032(H) 1.003 - 1.030 [facility] pH, urine 6.0 [facility] Comment: Interpretive Data ? Urine pH is affected by diet, medications, systemic acid-base disturbances, and renal tubular function. ??pH may affect urinary stone formation. ??For example, urine pH below 6.0 may help reduce the tendency for calcium phosphate stones and pH greater than 6.0 may reduce the tendency for uric acid stone formation. Source: [facility] Current Interpretive Data was last revised on 2017 Protein, ur ql 2+(A) Negative [facility] Glucose, ur ql Negative Negative [facility] Ketones, ur 1+(A) Negative [facility] Bilirubin, ur Negative Negative [facility] Blood, ur Negative Negative [facility] Urobilinogen, ur <2.0 <2.0 mg/dL [facility] Nitrite, ur Negative Negative [facility] Leukocyte esterase, ur Negative Negative [facility] UA reflex comment Reflex to microscopic UA will be performed. [facility] Urine 05/21/2024 5:34 PM COMMUNICATIONS SENIOR ASSOCIATE 05/21/2024 5:39 PM COMMUNICATIONS SENIOR ASSOCIATE us Marcus Amaya MD LAB URINE ORDERABLES F inal Result [facility] [place] [address] * Amphetamine Confirmation, Urine (05/21/2024 5:34 PM COMMUNICATIONS SENIOR ASSOCIATE) Amphetamine Conf, Ur Does Not Confirm CutOff 150ng/mL Methamphetamine Conf, Ur Does Not Confirm CutOff 150ng/mL [facility] MDA Conf, Ur Does Not Confirm CutOff 150ng/mL [facility] MDMA Conf, Ur Does Not Confirm CutOff 50 ng/mL [facility] MDEA Conf, Ur Does Not Confirm CutOff [...] Performance characteristics were determined by the [facility] in a manner consistent with CLIA requirement and has not been cleared or approved by the U.S. Food and Drug Administration. Current interpretive data was last revised on 2020. Urine 05/21/2024 5:34 PM COMMUNICATIONS SENIOR ASSOCIATE 05/21/2024 5:46 PM COMMUNICATIONS SENIOR ASSOCIATE Marcus Amaya MD LAB URINE ORDERABLES F inal Result Performing Organization Address [facility] Co de Phone Number [facility] [place] [address] * (ABNORMAL) Urinalysis, microscopic only (05/21/2024 5:34 PM COMMUNICATIONS SENIOR ASSOCIATE) WBC, ur 0-5 0 - 5 /HPF RBC, ur 0-2 0 - 2 /HPF [facility] Epithelial cells, squamous, ur 1-5 0 - 5 /HPF [facility] Bacteria, ur Trace(A) [facility] Mucous, ur Present(A) [facility] Hyaline casts, ur 11-20(A) 0 - 10 /LPF [facility] Urine 05/21/2024 5:34 PM COMMUNICATIONS SENIOR ASSOCIATE 05/21/2024 5:39 PM COMMUNICATIONS SENIOR ASSOCIATE Marcus Amaya MD LAB URINE ORDERABLES F inal Result Performing Organization Address [facility] Co de Phone Number [facility] [place] [address] * Sepsis Lactate w/ Reflex (05/21/2024 4:33 PM COMMUNICATIONS SENIOR ASSOCIATE) Sepsis Lactate 1.9 0.7 - 2.0 mmol/L Blood 05/21/2024 4:33 PM COMMUNICATIONS SENIOR ASSOCIATE 05/21/2024 4:44 PM COMMUNICATIONS SENIOR ASSOCIATE Marcus Amaya MD LAB BLOOD ORDERABLES F inal Result Performing Organization Address [facility] Co de Phone Number [facility] [place] [address] * eGFR (05/21/2024 3:41 PM COMMUNICATIONS SENIOR ASSOCIATE) eGFR 70 >=60 mL/min/1. 73 m2 Comment: [...] last reviewed 2021. Blood 05/21/2024 3:41 PM COMMUNICATIONS SENIOR ASSOCIATE 05/21/2024 4:03 PM COMMUNICATIONS SENIOR ASSOCIATE us Chelle Elliott MD LAB BLOOD ORDERABLES Final Result [facility] [place] [address] * (ABNORMAL) Differential, auto (05/21/2024 3:41 PM COMMUNICATIONS SENIOR ASSOCIATE) Neutrophil abs 6.9(H) 1.5 - 6.5 K/cumm Imm gran abs 0.0 0.0 - 0.1 K/cumm [facility] Lymphocyte abs 1.5 0.8 - 3.3 K/cumm [facility] Monocyte abs 0.9(H) 0.2 - 0.8 K/cumm [facility] Eosinophil abs 0.0 0.0 - 0.5 K/cumm [facility] Basophil abs 0.0 0.0 - 0.1 K/cumm [facility] Neutrophil pct 73.5 % [facility] Comment: Interpretive Data Percent cell count reference ranges are not reported, since discordance with absolute values may lead to misinterpretation of CBC data. Current Interpretive Data was last revised on 2017. Imm gran pct 0.3 % [facility] Comment: Interpretive Data Percent cell count reference ranges are not reported, since discordance with absolute values may lead to misinterpretation of CBC data. Current Interpretive Data was last revised on 2017. Lymphocyte pct 15.7 % [facility] Comment: Interpretive Data Percent cell count reference ranges are not reported, since discordance with absolute values may lead to misinterpretation of CBC data. Current Interpretive Data was last revised on 2017. Monocyte pct 10.0 % [facility] Comment: Interpretive Data Percent cell count reference ranges are not reported, since discordance with absolute values may lead to misinterpretation of CBC data. Current Interpretive Data was last revised on 2017. Eosinophil pct 0.1 % [facility] Comment: Interpretive Data Percent cell count reference ranges are not reported, since discordance with absolute values may lead to misinterpretation of CBC data. Current Interpretive Data was last revised on 2017. Basophil pct 0.4 % [facility] Comment: Interpretive Data Percent cell count reference ranges are not reported, since discordance with absolute values may lead to misinterpretation of CBC data. Current Interpretive Data was last revised on 2017. Blood 05/21/2024 3:41 PM COMMUNICATIONS SENIOR ASSOCIATE 05/21/2024 4:06 PM COMMUNICATIONS SENIOR ASSOCIATE us Chelle Elliott MD LAB BLOOD ORDERABLES Final Result [facility] [place] [address] * CBC with auto differential (05/21/2024 3:41 PM COMMUNICATIONS SENIOR ASSOCIATE) [facility] WBC 9.4 3.8 - 9.9 K/cumm Hgb 13.9 13.0 - 17.5 g/dL [facility] Hct 40.0 38.9 - 50.3 % [facility] Plt 291 150 - 400 K/cumm [facility] MPV 9.1 9.1 - 12.3 fL [facility] RBC 4.59 4.30 - 5.80 M/cumm [facility] MCV 87.1 81.3 - 96.4 fL [facility] MCH 30.3 27.1 - 33.3 pg [facility] MCHC 34.8 32.3 - 35.7 g/dL [facility] RDW CV 13.1 11.1 - 14.9 % [facility] RDW SD 41.8 35.7 - 48.1 fL [facility] NRBC abs 0.00 0.00 - 0.01 K/cumm [facility] Blood (Blood, Venous) 05/21/2024 3:41 PM COMMUNICATIONS SENIOR ASSOCIATE 05/21/2024 4:06 PM COMMUNICATIONS SENIOR ASSOCIATE Marcus Amaya MD LAB BLOOD ORDERABLES F inal Result Performing Organization Address City/[facility] Co de Phone Number [facility] [place] [address] * Lipase (05/21/2024 3:41 PM COMMUNICATIONS SENIOR ASSOCIATE) [facility] Lipase 15 10 - 99 Units/L Blood (Blood, Venous) 05/21/2024 3:41 PM COMMUNICATIONS SENIOR ASSOCIATE 05/21/2024 4:03 PM COMMUNICATIONS SENIOR ASSOCIATE Marcus Amaya MD LAB BLOOD ORDERABLES F inal Result [facility] [place] [address] * (ABNORMAL) Comprehensive metabolic panel (05/21/2024 3:41 PM COMMUNICATIONS SENIOR ASSOCIATE) Sodium 136 135 - 145 mmol/L Potassium, pl 3.6 3.3 - 4.9 mmol/L [facility] Chloride 99 97 - 110 mmol/L [facility] CO2 22 22 - 32 mmol/L [facility] Anion gap 15 2 - 15 mmol/L [facility] BUN 22 6 - 25 mg/dL [facility] Creatinine 1.37(H) 0.80 - 1.30 mg/dL [facility] Glucose 92 70 - 199 mg/dL [facility] Comment: Interpretive Data Fasting glucose [...] 2022. Calcium 10.3 8.5 - 10.3 mg/dL [facility] Bilirubin, total 1.5(H) 0.1 - 1.2 mg/dL [facility] Protein, pl 8.5 6.5 - 8.5 g/dL [facility] Albumin 5.1(H) 3.5 - 5.0 g/dL [facility] Alk phos 99 40 - 130 Units/L [facility] ALT 19 7 - 55 Units/L [facility] AST 21 10 - 50 Units/L [facility] Blood 05/21/2024 3:41 PM COMMUNICATIONS SENIOR ASSOCIATE 05/21/2024 4:03 PM COMMUNICATIONS SENIOR ASSOCIATE us Marcus Amaya MD LAB BLOOD ORDERABLES F inal Result [facility] [place] [address] * ECG 12-LEAD (05/21/2024 2:24 PM COMMUNICATIONS SENIOR ASSOCIATE) Narrative [facility] - 05/21/2024 2:24 PM COMMUNICATIONS SENIOR ASSOCIATE Huy Mack MD ? 05/21/2024 ??2:27 PM [...] ECG ORDERABLES Final Result Performing Organization Address [facility] de Phone Number [facility] * ECG 12-LEAD (05/19/2024 11:55 PM COMMUNICATIONS SENIOR ASSOCIATE) Narrative [facility] - 05/19/2024 11:55 PM COMMUNICATIONS SENIOR ASSOCIATE Deniz Huitron MD ? 05/19/2024 11:56 PM [...] further workup in the ED ?? Result [facility] Casandra Lock MD ECG ORDERABLES Final Result Performing Organization Address [facility] Co de Phone Number [facility] * XR Chest PA Lateral 2 Views (05/19/2024 10:34 PM COMMUNICATIONS SENIOR ASSOCIATE) Anatomical Region Laterality Modality Body, Chest N/A Computed Radiogr aphy 05/19/2024 10:4 3 PM COMMUNICATIONS SENIOR ASSOCIATE Impressions 05/20/2024 9:03 AM COMMUNICATIONS SENIOR ASSOCIATE Comparison is made to 07/05/2023. Thoracic aorta [...] Collins Wills M.D. Narrative 05/20/2024 9:03 AM COMMUNICATIONS SENIOR ASSOCIATE EXAMINATION: 2 view chest radiograph Procedure Note [...] CTA Chest Abdomen Pelvis (05/19/2024 10:20 PM COMMUNICATIONS SENIOR ASSOCIATE) Anatomical Region Laterality Modality Body N/A Computed Tomogra phy 05/19/2024 10:5 1 PM COMMUNICATIONS SENIOR ASSOCIATE Impressions 05/20/2024 9:06 AM COMMUNICATIONS SENIOR ASSOCIATE 1. ??Unchanged thoracoabdominal aortic dissection status post [...] Collins Wills M.D. Narrative 05/20/2024 9:06 AM COMMUNICATIONS SENIOR ASSOCIATE EXAMINATION: ??CT ANGIOGRAPHY OF THE CHEST, ABDOMEN [...] (baseline, 2hr, 4hr, 6hr) (05/19/2024 9:12 PM COMMUNICATIONS SENIOR ASSOCIATE) Pathologist [facility] Trop I hs 4 <=35 ng/L Comment: Interpretive Data For further hscTnI resources including the diagnostic algorithm and an aid in interpretation, copy and paste this link: [email or web address]://[email or web address].testcatalog.org/show/[email or web address] Current Interpretive Data last revised 2019. Blood 05/19/2024 9:12 PM COMMUNICATIONS SENIOR ASSOCIATE 05/19/2024 9:28 PM COMMUNICATIONS SENIOR ASSOCIATE Cristobal Waldrop MD LAB BLOOD ORDERABLE S Final Result [facility] Department [place] [address] * eGFR (05/19/2024 9:12 PM COMMUNICATIONS SENIOR ASSOCIATE) eGFR 85 >=60 mL/min/1. 73 m2 Comment: [...] last reviewed 2021. Blood 05/19/2024 9:12 PM COMMUNICATIONS SENIOR ASSOCIATE 05/19/2024 9:28 PM COMMUNICATIONS SENIOR ASSOCIATE us Cristobal Waldrop MD LAB BLOOD ORDERABLE S Final Result [facility] [place] [address] * (ABNORMAL) Differential, auto (05/19/2024 9:12 PM COMMUNICATIONS SENIOR ASSOCIATE) Neutrophil abs 7.6(H) 1.5 - 6.5 K/cumm Imm gran abs 0.1 0.0 - 0.1 K/cumm [facility] Lymphocyte abs 0.9 0.8 - 3.3 K/cumm [facility] Monocyte abs 0.5 0.2 - 0.8 K/cumm [facility] Eosinophil abs 0.0 0.0 - 0.5 K/cumm [facility] Basophil abs 0.0 0.0 - 0.1 K/cumm [facility] Neutrophil pct 84.3 % [facility] Comment: Interpretive Data Percent cell count reference ranges are not reported, since discordance with absolute values may lead to misinterpretation of CBC data. Current Interpretive Data was last revised on 2017. Imm gran pct 0.7 % [facility] Comment: Interpretive Data Percent cell count reference ranges are not reported, since discordance with absolute values may lead to misinterpretation of CBC data. Current Interpretive Data was last revised on 2017. Lymphocyte pct 9.4 % [facility] Comment: Interpretive Data Percent cell count reference ranges are not reported, since discordance with absolute values may lead to misinterpretation of CBC data. Current Interpretive Data was last revised on 2017. Monocyte pct 5.3 % [facility] Comment: Interpretive Data Percent cell count reference ranges are not reported, since discordance with absolute values may lead to misinterpretation of CBC data. Current Interpretive Data was last revised on 2017. Eosinophil pct 0.1 % [facility] Comment: Interpretive Data Percent cell count reference ranges are not reported, since discordance with absolute values may lead to misinterpretation of CBC data. Current Interpretive Data was last revised on 2017. Basophil pct 0.2 % [facility] Comment: Interpretive Data Percent cell count reference ranges are not reported, since discordance with absolute values may lead to misinterpretation of CBC data. Current Interpretive Data was last revised on 2017. Blood 05/19/2024 9:12 PM COMMUNICATIONS SENIOR ASSOCIATE 05/19/2024 9:28 PM COMMUNICATIONS SENIOR ASSOCIATE us Cristobal Waldrop MD LAB BLOOD ORDERABLE S Final Result [facility] [place] [address] * CBC with auto differential (05/19/2024 9:12 PM COMMUNICATIONS SENIOR ASSOCIATE) WBC 9.0 3.8 - 9.9 K/cumm Hgb 13.7 13.0 - 17.5 g/dL [facility] Hct 39.7 38.9 - 50.3 % [facility] Plt 293 150 - 400 K/cumm [facility] MPV 9.2 9.1 - 12.3 fL [facility] RBC 4.53 4.30 - 5.80 M/cumm [facility] MCV 87.6 81.3 - 96.4 fL [facility] MCH 30.2 27.1 - 33.3 pg [facility] MCHC 34.5 32.3 - 35.7 g/dL [facility] RDW CV 13.2 11.1 - 14.9 % [facility] RDW SD 42.5 35.7 - 48.1 fL [facility] NRBC abs 0.00 0.00 - 0.01 K/cumm [facility] Blood 05/19/2024 9:12 PM COMMUNICATIONS SENIOR ASSOCIATE 05/19/2024 9:28 PM COMMUNICATIONS SENIOR ASSOCIATE Cristobal Waldrop MD LAB BLOOD ORDERABLE S Final Result [facility] [place] [address] * aPTT (05/19/2024 9:12 PM COMMUNICATIONS SENIOR ASSOCIATE) aPTT 34 28 - 38 sec Comment: Interpretive Data Heparin therapeutic range: 66.0 - 100.0 seconds. Range based on correlation with therapeutic heparin activity range of 0.3 - 0.7 Units/mL. Current interpretive data was last revised on 2023. Blood 05/19/2024 9:12 PM COMMUNICATIONS SENIOR ASSOCIATE 05/19/2024 9:32 PM COMMUNICATIONS SENIOR ASSOCIATE us Cristobal Waldrop MD LAB BLOOD ORDERABLE S Final Result [facility] [place] [address] * (ABNORMAL) Protime-INR (05/19/2024 9:12 PM COMMUNICATIONS SENIOR ASSOCIATE) Pathologist [facility] PT 14.2(H) 9.7 - 13.0 sec INR 1.31(H) 0.90 - 1.20 [facility] Comment: Interpretive data Oral anticoagulant therapeutic ranges: Venous thromboembolism prophylaxis or treatment: 2.0-3.0 CARDIOLOGY Standard range: 2.0-3.0 High-intensity range: 2.5-3.5 Refer to indication-specific guidelines for appropriate target ranges for prosthetic heart valve replacement. Current interpretive data was last revised on 2019. Blood 05/19/2024 9:12 PM COMMUNICATIONS SENIOR ASSOCIATE 05/19/2024 9:32 PM COMMUNICATIONS SENIOR ASSOCIATE Cristobal Waldrop MD LAB BLOOD ORDERABLE S Final Result Performing Organization Address [facility] Co de Phone Number [facility] [place] [address] * Type and screen (05/19/2024 9:12 PM COMMUNICATIONS SENIOR ASSOCIATE) Pathologist [facility] Ellen, indirect Negative ABO Rh A Positive [facility] Blood 05/19/2024 9:12 PM COMMUNICATIONS SENIOR ASSOCIATE 05/19/2024 9:22 PM COMMUNICATIONS SENIOR ASSOCIATE Narrative [facility] - 05/19/2024 10:07 PM COMMUNICATIONS SENIOR ASSOCIATE Has the patient had Daratumumab or Isatuximab in the past 6 months?->Unknown Cristobal Waldrop MD LAB BLOOD BANK TEST ORDERABLES Final Result Performing Organization Address City/[facility]/ZIP Co de Phone Number [facility] [place] [address] * (ABNORMAL) Comprehensive metabolic panel (05/19/2024 9:12 PM COMMUNICATIONS SENIOR ASSOCIATE) Pathologist [facility] Sodium 139 135 - 145 mmol/L Potassium, pl 3.9 3.3 - 4.9 mmol/L [facility] Chloride 100 97 - 110 mmol/L [facility] CO2 21(L) 22 - 32 mmol/L [facility] Anion gap 18(H) 2 - 15 mmol/L [facility] BUN 18 6 - 25 mg/dL [facility] Creatinine 1.17 0.80 - 1.30 mg/dL [facility] Glucose 108 70 - 199 mg/dL [facility] Comment: Interpretive Data Fasting glucose [...] 2022. Calcium 10.2 8.5 - 10.3 mg/dL [facility] Bilirubin, total 1.2 0.1 - 1.2 mg/dL [facility] Protein, pl 8.7(H) 6.5 - 8.5 g/dL [facility] Albumin 5.1(H) 3.5 - 5.0 g/dL [facility] Alk phos 105 40 - 130 Units/L [facility] ALT 23 7 - 55 Units/L [facility] AST 18 10 - 50 Units/L [facility] Blood 05/19/2024 9:12 PM COMMUNICATIONS SENIOR ASSOCIATE 05/19/2024 9:28 PM COMMUNICATIONS SENIOR ASSOCIATE Cristobal Waldrop MD LAB BLOOD ORDERABLE S Final Result [facility] Department [place] [address] * POC ISTAT (03/07/2024 12:09 PM CDT) Creatinine, POC, bld 1.1 0.6 - 1.3 mg/dL POC Device Number [id number] [facility] POC Performer [id number] [facility] Blood 03/07/2024 12:0 9 PM CDT 03/07/2024 12:09 PM CDT Leo Manzano MD LAB BLOOD ORDERABLES Final Result [facility] [id number] [facility] [place] [address] * CTA Chest Abdomen Pelvis (03/07/2024 12:05 [...] sult * Imaging SI Joint Injection Bilateral (36319) (02/28/2024 11:27 AM CDT) Narrative [id number] - [...] Edited Result - Final [facility] [place] [address] from Last 3 Months or Most Recently Relevant to Health Maintenance Insurance [employer] [facility] [employer] [facility] Advance Directives For more information, please contact: [phone] * Full Code (Latest Code Status on [...] [facility] Agent Care Teams Batch Operator Relationship Specialty Start Date End Date Carl Strickland MD [address] [place] [address] [address] [place] [address] PCP - General Internal Medicine 06/06/23 Leo Manzano MD [id number] [place] [address] Surgeon Vascular Surgery 05/16/23
--- OUTSIDE RECORDS SUMMARY | 2024-05-30 06:26 | XMS_ITS | Encounter Summary ---
Author Organization [facility] Healthcare Address [address] [place] [address] Care Team Providers Care Choir Leader Name Role Phone Leo Manzano MD Unavailable [phone] Carl Strickland MD Primary Care Provider Reason for Visit * Reason Comments Abdominal Pain Encounter Details Date Type Department Care Team (Late st Contact Info) Description 05/19/2024 9:40 PM PUPPY WALKER - 05/20/2024 1:34 AM [facility] Emergency [facility] Emergency Department [address] [place] [address] Casandra Lock MD [address] [place] [address] Dank Montoya MD [address] [place] [address] Abdominal pain (Primary Dx); Chronic bilateral low back pain without sciatica; Abdominal aortic aneurysm dissection (HCC) Discharge Disposition: Discharge to home or self care Social History Tobacco Use Types Packs/Day Years Used Date Smoking Tobacco: Never Smokeless Tobacco: Never Alcohol Use Standard Drinks/Week Comments Not Currently 0 (1 standard drink = 0.6 oz pur e alcohol) [facility] Utilities Answer Date Recorded In the past 12 months has e [employer], gas, oil, or water [employer] threatened to shut off services in your home? Patient declined 10/02/2023 Social Connection and Isolation Panel [NHANES] A nswer Date Recorded In a typical week, how many times do you talk on the phone with family, friends, or neighbors? Patient declined 10/02/2023 How often do you get togethe r with friends or relatives? Patient declined 10/02/2023 How often do you attend restorationist or orthodoxy serv ices? Patient declined 10/02/2023 Do you belong to any clubs o r organizations such as restorationist groups, unions, fraternal or athletic groups, or [...] a usp (including now)? Patient declined 10/02/2023 Personal Safety Answer Date Recorded Have you ever been in or are you currently in a harmful physical or emotional relationship or is someone making you feel afraid or unsafe? Denies 05/21/2024 Sex and Gender Information Value Date Recorded Sex Assigned at Not on file Legal Sex Male 3:42 AM PUPPY WALKER Gender Identity Not on file Sexual Orientation Straight 06/12/2023 11 :43 PM PUPPY WALKER documented as of this encounter Last Filed Vital Signs Vital Sign Reading Time Taken Comments Blood Pressure 110/76 05/20/2024 1:30 AM PUPPY WALKER Pulse 83 05/20/2024 1:30 AM PUPPY WALKER Temperature 36.8 ??C (98.2 ??F) 05/19/2024 8:23 PM CS T Respiratory Rate 16 05/20/2024 1:00 AM PUPPY WALKER Oxygen Saturation 98% 05/20/2024 1:30 AM PUPPY WALKER Inhaled Oxygen Concentration - - Weight 99.3 kg (219 lb) 05/19/2024 8:23 PM PUPPY WALKER Height 172.7 cm (5' 8 ) 05/19/2024 8:23 PM PUPPY WALKER Body Mass Index 33.3 05/19/2024 8:23 PM PUPPY WALKER documented in this encounter Discharge Instructions * Discharge Instructions* Andrew Alcala MD - 05/20/2024 12:28 AM PUPPY WALKER You were seen in the hospital for [...] back pain, numbness, tingling, shortness of breath. Y WALKER Y WALKER * Attachments The following attachments cannot be sent through Care Everywhere. * Back Pain (Acute or Chronic) (Bulgarian) documented in this encounter Medications at Time [...] IV drug use. Patient was seen in [facility] in [place] where today of CT abdomen and was discharged home. Patient History: Patient Active Problem List Diagnosis Date Noted ??? Sacroiliitis ([facility]) 02/26/2024 ??? Weight loss 10/03/2023 ??? Pyelonephritis 10/02/2023 ??? Hypokalemia 10/02/2023 ??? ANGI (acute kidney injury) ([facility]) 10/02/2023 ??? Syncope 10/02/2023 ??? Ureteral calculi 09/27/2023 ??? 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HCC) 09/06/2023 ??? Back pain at L4-L5 level 08/23/2023 ??? PFO (patent foramen ovale) 07/05/2023 ??? Ureteral stone 07/04/2023 ??? Abdominal pain 07/04/2023 ??? Other chronic pain 06/24/2023 ??? 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 Infrarenal abdominal aortic aneurysm, without rupture ([facility]) 06/13/2023 ??? Polysubstance abuse (CMS/HCC) ([facility]) 06/10/2023 ??? Moderate malnutrition (CMS/HCC) ([facility]) 06/09/2023 ??? Dissection of abdominal aorta (CMS/HCC) ([facility]) 06/03/2023 ??? Urinary retention 05/16/2023 ??? Epistaxis 05/13/2023 ??? Pneumonia 05/13/2023 ??? HTN (hypertension) 05/13/2023 ??? Dissection of thoracoabdominal aorta (CMS/HCC) ([facility]) 05/02/2023 ??? Dissection of aorta, [...] neck. By: Andrew Alcala MD Time: 05/19 3349 Comment: Pt received second dose of dilaudid and had saturation drop to 70s with good wave form, placed on nasla cannula and back up to 95% and stable By: Andrew Alcala MD Time: 05/19 498 Comment: I have assumed care of this [...] Casandra Lock MD at 05/20/2024 2:33 PM PUPPY WALKER Y WALKER Y WALKER Associated attestation - Casandra Lock MD - 05/20/2024 2:33 PM PUPPY WALKER I have seen and examined the patient on 05/19/2024. I agree with the findings and plan of care as documented in the resident's note. * Marina Maher RN - 05/19/2024 9:40 PM CST Bed: ED2-20 Expected date: Expected time: Means of arrival: Comments: Briagas (when clean) Marina Maher, BRIA 05/19/240 Y WALKER * Jamie Robert, BRIA - 05/19/2024 8:21 PM CST Pt to ED for back, chest, & abdominal pain since 0500 today. Also endorsing vomiting. Seen at [place], was told to come to [place]. PMHx aortic dissection around this time last year. Tachypnea, HTN, all other VSS in triage. A&O x4, ambulatory. Appears in significant distress, states he left [place] because there's nothing they could do to help me, they told me to come here. Y WALKER documented in this encounter Miscellaneous Notes * ED Procedure Note - Deniz Huitron MD - 05/19/2024 11:55 PM PUPPY WALKER Associated Order(s): ECG 12 lead Procedure ECG [...] in the ED Deniz Huitron MD 05/19/24 9670 Y WALKER documented in this encounter Plan of Treatment Not on file documented as of this encounter Goals Goal Patient Goal Type Associated Problems Recent Progress Patient-Stated? Author CCM Chronic Pain Care Plan Chronic Care Management No change(05/16 2:51 PM PUPPY WALKER) No Rita Landa RN Note: Problem: Chronic [...] Comments ECG 12-LEAD STAT 05/19/2024 11:55 PM PUPPY WALKER XR CHEST PA LATERAL 2 VIEWS ED 05/19/2024 10:34 PM PUPPY WALKER CTA CHEST ABDOMEN PELVIS ED 05/19/2024 10:20 PM PUPPY WALKER TROPONIN I HIGH-SENSITIVITY SERIES (BASELINE, 2HR, 4HR, 6HR) STAT 05/19/2024 9:12 PM PUPPY WALKER EGFR STAT 05/19/2024 9:12 PM PUPPY WALKER DIFFERENTIAL AUTO Timed 05/19/2024 9:1 2 PM PUPPY WALKER CBC WITH AUTO DIFFERENTIAL Timed 05/19/2024 9:12 PM PUPPY WALKER APTT STAT 05/19/2024 9:12 PM PUPPY WALKER PROTIME-INR STAT 05/19/2024 9:12 PM PUPPY WALKER TYPE AND SCREEN STAT 05/19/2024 9:12 PM PUPPY WALKER COMPREHENSIVE METABOLIC PANEL STAT 05/19/2024 9:12 PM PUPPY WALKER documented in this encounter Results * ECG 12-LEAD (05/19/2024 11:55 PM PUPPY WALKER) Narrative [facility] - 05/19/2024 11:55 PM PUPPY WALKER Deniz Huitron MD ? 05/19/2024 11:56 PM [...] Casandra Lock MD ECG ORDERABLES Final Result [facility] * XR Chest PA Lateral 2 Views (05/19/2024 10:34 PM PUPPY WALKER) Anatomical Region Laterality Modality Body, Chest N/A Computed Radiogr aphy 05/19/2024 10:4 3 PM PUPPY WALKER Impressions 05/20/2024 9:03 AM PUPPY WALKER Comparison is made to 07/05/2023. Thoracic aorta [...] Collins Wills M.D. Narrative 05/20/2024 9:03 AM PUPPY WALKER EXAMINATION: 2 view chest radiograph Procedure Note [...] CTA Chest Abdomen Pelvis (05/19/2024 10:20 PM PUPPY WALKER) Anatomical Region Laterality Modality Body N/A Computed Tomogra phy 05/19/2024 10:5 1 PM PUPPY WALKER Impressions 05/20/2024 9:06 AM PUPPY WALKER 1. ??Unchanged thoracoabdominal aortic dissection status post [...] Collins Wills M.D. Narrative 05/20/2024 9:06 AM PUPPY WALKER EXAMINATION: ??CT ANGIOGRAPHY OF THE CHEST, ABDOMEN [...] inal Result * eGFR (05/19/2024 9:12 PM PUPPY WALKER) eGFR 85 >=60 mL/min/1. 73 m2 Comment: [...] last reviewed 2021. Blood 05/19/2024 9:12 PM PUPPY WALKER 05/19/2024 9:28 PM PUPPY WALKER us Cristobal Waldrop MD LAB BLOOD ORDERABLE S Final Result [facility] Department [place] [address] * (ABNORMAL) Differential, auto (05/19/2024 9:12 PM PUPPY WALKER) Neutrophil abs 7.6(H) 1.5 - 6.5 K/cumm Imm gran abs 0.1 0.0 - 0.1 K/cumm [facility] Lymphocyte abs 0.9 0.8 - 3.3 K/cumm [facility] Monocyte abs 0.5 0.2 - 0.8 K/cumm [facility] Eosinophil abs 0.0 0.0 - 0.5 K/cumm [facility] Basophil abs 0.0 0.0 - 0.1 K/cumm [facility] Neutrophil pct 84.3 % [facility] Comment: Interpretive Data Percent cell count reference ranges are not reported, since discordance with absolute values may lead to misinterpretation of CBC data. Current Interpretive Data was last revised on 2017. Imm gran pct 0.7 % [facility] Comment: Interpretive Data Percent cell count reference ranges are not reported, since discordance with absolute values may lead to misinterpretation of CBC data. Current Interpretive Data was last revised on 2017. Lymphocyte pct 9.4 % [facility] Comment: Interpretive Data Percent cell count [...] revised on 2017. Eosinophil pct 0.1 % [facility] Comment: Interpretive Data Percent cell count reference ranges are not reported, since discordance with absolute values may lead to misinterpretation of CBC data. Current Interpretive Data was last revised on 2017. Basophil pct 0.2 % [facility] Comment: Interpretive Data Percent cell count reference ranges are not reported, since discordance with absolute values may lead to misinterpretation of CBC data. Current Interpretive Data was last revised on 2017. Blood 05/19/2024 9:12 PM PUPPY WALKER 05/19/2024 9:28 PM PUPPY WALKER Cristobal Waldrop MD LAB BLOOD ORDERABLE S Final Result Performing Organization Address City/[facility]/ZIP Co de Phone Number [facility] Department [place] [address] * Troponin I high-sensitivity series (baseline, 2hr, 4hr, 6hr) (05/19/2024 9:12 PM PUPPY WALKER) Trop I hs 4 <=35 ng/L Comment: Interpretive Data For further hscTnI resources including the diagnostic algorithm and an aid in interpretation, copy and paste this link: https://bjhlab.testcatalog.org/show/hsTrop-[email or web address] Current Interpretive Data last revised 2019. Blood 05/19/2024 9:12 PM PUPPY WALKER 05/19/2024 9:28 PM PUPPY WALKER Cristobal Waldrop MD LAB BLOOD ORDERABLE S Final Result Performing Organization Address [facility] Co de Phone Number [facility] Department [place] [address] * Type and screen (05/19/2024 9:12 PM PUPPY WALKER) Ellen, indirect Negative ABO Rh A Positive [facility] Blood 05/19/2024 9:12 PM PUPPY WALKER 05/19/2024 9:22 PM PUPPY WALKER Narrative [facility] - 05/19/2024 10:07 PM PUPPY WALKER Has the patient had Daratumumab or Isatuximab in the past 6 months?->Unknown Cristobal Waldrop MD LAB BLOOD BANK TEST ORDERABLES Final Result Performing Organization Address [facility] de Phone Number [facility] [place] [address] * aPTT (05/19/2024 9:12 PM PUPPY WALKER) Pathologist [facility] aPTT 34 28 - 38 sec Comment: Interpretive Data Heparin therapeutic range: 66.0 - 100.0 seconds. Range based on correlation with therapeutic heparin activity range of 0.3 - 0.7 Units/mL. Current interpretive data was last revised on 2023. Blood 05/19/2024 9:12 PM PUPPY WALKER 05/19/2024 9:32 PM PUPPY WALKER Cristobal Waldrop MD LAB BLOOD ORDERABLE S Final Result Performing Organization Address [facility] de Phone Number [facility] [place] [address] * (ABNORMAL) Protime-INR (05/19/2024 9:12 PM PUPPY WALKER) PT 14.2(H) 9.7 - 13.0 sec INR 1.31(H) 0.90 - 1.20 [facility] Comment: Interpretive data Oral anticoagulant therapeutic ranges: Venous thromboembolism prophylaxis or treatment: 2.0-3.0 CARDIOLOGY Standard range: 2.0-3.0 High-intensity range: 2.5-3.5 Refer to indication-specific guidelines for appropriate target ranges for prosthetic heart valve replacement. Current interpretive data was last revised on 2019. Blood 05/19/2024 9:12 PM PUPPY WALKER 05/19/2024 9:32 PM PUPPY WALKER us Cristobal Waldrop MD LAB BLOOD ORDERABLE S Final Result [facility] Department [place] [address] * (ABNORMAL) Comprehensive metabolic panel (05/19/2024 9:12 PM PUPPY WALKER) Sodium 139 135 - 145 mmol/L Potassium, pl 3.9 3.3 - 4.9 mmol/L [facility] Chloride 100 97 - 110 mmol/L [facility] CO2 21(L) 22 - 32 mmol/L [facility] Anion gap 18(H) 2 - 15 mmol/L [facility] BUN 18 6 - 25 mg/dL [facility] Creatinine 1.17 0.80 - 1.30 mg/dL [facility] Glucose 108 70 - 199 mg/dL [facility] Comment: Interpretive Data Fasting glucose [...] Calcium 10.2 8.5 - 10.3 mg/dL [facility] Bilirubin, total 1.2 0.1 - 1.2 mg/dL [facility] Protein, pl 8.7(H) 6.5 - 8.5 g/dL [facility] Albumin 5.1(H) 3.5 - 5.0 g/dL [facility] Alk phos 105 40 - 130 Units/L [facility] ALT 23 7 - 55 Units/L [facility] AST 18 10 - 50 Units/L [facility] Blood 05/19/2024 9:12 PM PUPPY WALKER 05/19/2024 9:28 PM PUPPY WALKER Cristobal Waldrop MD LAB BLOOD ORDERABLE S Final Result Performing Organization Address [facility]/ZIP Co de Phone Number [facility] [place] [address] * CBC with auto differential (05/19/2024 9:12 PM PUPPY WALKER) [facility] WBC 9.0 3.8 - 9.9 K/cumm Hgb 13.7 13.0 - 17.5 g/dL [facility] Hct 39.7 38.9 - 50.3 % [facility] Plt 293 150 - 400 K/cumm [facility] MPV 9.2 9.1 - 12.3 fL [facility] RBC 4.53 4.30 - 5.80 M/cumm [facility] MCV 87.6 81.3 - 96.4 fL [facility] MCH 30.2 27.1 - 33.3 pg [facility] MCHC 34.5 32.3 - 35.7 g/dL [facility] RDW CV 13.2 11.1 - 14.9 % [facility] RDW SD 42.5 35.7 - 48.1 fL [facility] NRBC abs 0.00 0.00 - 0.01 K/cumm [facility] Blood 05/19/2024 9:12 PM PUPPY WALKER 05/19/2024 9:28 PM PUPPY WALKER Cristobal Waldrop MD LAB BLOOD ORDERABLE S Final Result Performing Organization Address [facility]/ZIP Co de Phone Number [facility] [place] [address] documented in this encounter Visit Diagnoses Diagnosis [...] 05/19/24 at 2153 Given 05/19/2024 10:00 PM PUPPY WALKER 1 mg HYDROmorphone (DILAUDID) injection 1 mg 1 mg, intravenous, Administer over 2 Minutes, Once, On 05/19/24 at 2239, For 1 dose Given 05/19/2024 10:45 PM PUPPY WALKER 1 mg ioversoL (OPTIRAY 350) syringe 100 mL 100 mL, intravenous, Once in imaging, contrast, Starting on 05/19/24 at 2208, For 1 dose Contrast Given 05/19/2024 10:15 PM PUPPY WALKER 95 mL ketorolac (TORADOL) 30 mg/mL injection 30 mg 30 mg, intravenous, Once, On 05/20/24 at 0031, For 1 dose, For Adult IV push, administer over 15 seconds Given 05/20/2024 12:57 AM PUPPY WALKER 30 mg ondansetron (ZOFRAN) injection 4 mg 4 mg, intravenous, Administer over 2 Minutes, Once, On 05/19/24 at 2113, For 1 dose, Indications: Nausea, VomitingIndications:Nausea,Vom iting Given 05/19/2024 9:16 PM PUPPY WALKER 4 mg documented in this encounter Active and Recently Administered Medications Times are shown in PUPPY WALKER. Scheduled Medication Order 05/18/2024 05/19/2024 05/20/2024 HYDROmorphone [...] 05/19/2024 documented in this encounter Care Teams Choir Leader Relationship Specialty Start Date End Date Carl Strickland MD [address] [facility] [address] [place] [address] PCP - General Internal Medicine 06/06/23 Leo Manzano MD [address] [facility] [id number] [place] [address] Surgeon Vascular Surgery 05/16/23 documented as of this encounter
--- OUTSIDE RECORDS SUMMARY | 2024-05-30 06:26 | XMS_ITS | Encounter Summary ---
Author Organization [facility] Healthcare Address [address] [place] [address] Care Team Providers Care Spool Sander Name Role Phone Leo Manzano MD Unavailable [phone] Carl Strickland MD Primary Care Provider Reason for Referral * Diagnostic Imaging (Routine) - Pending Review Specialty Diagnoses / Procedures Referred By Contac t Referred To Contact Diagnoses Sacroiliitis (HCC) Procedures Imaging SI Joint Injection Bilateral (76918) Adrianne Adams MD PhD [address] [facility] [address] [place] [address] Phone: tel: fax: [address] [phone] Referral ID Status Reason Start Date Expiration Date V isits Requested Visits Authorized [id number] Pending Review 05/16/2024 06/15/2025 1 1 [facility] Reason for Visit * Reason Comments Back Pain Encounter Details Date Type Department Care Team (Latest Contact Info) Description 05/16/2024 2:39 PM SUPERVISOR LACE TEARING - 05/16/2024 11:59 PM SUPERVISOR LACE TEARING Hospital Encounter [facility] [address] [place] [address] [facility] [address] [place] [id number] Adrianne Adams MD PhD [address] [place] [address] Sacroiliitis (HCC) (Primary Dx) Discharge Disposition: Discharge to home or self care Social History Tobacco Use Types Packs/Day Years Used Date Smoking Tobacco: Never Smokeless Tobacco: Never Alcohol Use Standard Drinks/Week Comments Not Currently 0 (1 standard drink = 0.6 oz pur e alcohol) [facility] Utilities Answer Date Recorded In the past 12 months has th e electric, gas, oil, or water [employer] threatened to shut off services in your home? Patient declined 10/02/2023 Social Connection and Isolation Panel [NHANES] A nswer Date Recorded In a typical week, how many times do you talk on the phone with family, friends, or neighbors? Patient declined 10/02/2023 How often do you get togethe r with friends or relatives? Patient declined 10/02/2023 How often do you attend yazdanism or judaism serv ices? Patient declined 10/02/2023 Do you belong to any clubs o r organizations such as yazdanism groups, unions, fraternal or athletic groups, or [...] file Legal Sex Male 3:42 AM SUPERVISOR LACE TEARING Gender Identity Not on file Sexual Orientation Straight 06/12/2023 11 :43 PM SUPERVISOR LACE TEARING documented as of this encounter Last Filed Vital Signs Vital Sign Reading Time Taken Comments Blood Pressure 138/83 05/16/2024 2:50 PM SUPERVISOR [employer]ACE TEARING Pulse 75 05/16/2024 2:50 PM SUPERVISOR LACE TEARING Temperature 36.5 ??C (97.7 ??F) 05/16/2024 2:50 PM CS T Respiratory Rate 18 05/16/2024 2:50 PM SUPERVISOR LACE TEARING Oxygen Saturation 99% 05/16/2024 2:50 PM SUPERVISOR LACE TEARING Inhaled Oxygen Concentration - - Weight - - Height - - Body Mass Index - - documented in this encounter Discharge Instructions * Patient Instructions* Radha Mooney RN - 05/16/2024 2:45 PM SUPERVISOR LACE TEARING [facility] ([facility]) DISCHARGE INSTRUCTIONS MEDICATIONS: no changes Today's visit: follow up with Dr. Adams ACTIVITY: [x] Resume normal activity [] See [facility] Post Discharge Procedure Information Sheet FOLLOW UP APPOINTMENTS: [x] Procedure at your next visit : bilateral sacroiliac joint injection INSTRUCTIONS before your next procedure: [x] See [facility] Pre-Procedure Information Sheet [] Do not eat or drink for six (6) hours before the time/date of the procedure. [] Inquire with your prescribing provider if ok to hold blood thinner for ( ) days before procedure. [] Blood work required 2 hours before procedure: [x] Project Associate needed for next procedure [x] Pre Procedure instructions will be sent through [email or web address] or by phone two working days prior to procedure. *Need help with [email or web address]? Call [phone]. Patient provided information and repeated back with understanding. If you need to reach us: For any questions about your procedure, please call the Pain Management Center [phone] (M-F) (8am-4pm) If you need urgent attention after 5 pm and weekends: Call the [facility] Vp Strategy at [phone] and ask for the Pain Service doctor health information coder. SACROILIAC JOINT INJECTION PAIN MANAGEMENT CENTER PATIENT [...] x-ray table while you are awake. A geophysical data technician will be taking x-rays. A nurse [...] and ask to speak to a nurse. [facility] documented in this encounter Medications at Time [...] palpation of spinal processes. Paraspinal muscle tenderness. [id number] SPINE: Tenderness at the lumbosacral region. Positive [...] loading positive bilaterally SI joint tenderness, TANJA, [place]'s, Compression tests positive bilaterally Hip tenderness: negative [...] Clinical Fellow, Pain Management Department of Anesthesiology [facility] 05/16/24 [facility] * Radha Mooney RN - 05/16/2024 2:45 [...] Hernandez, Leona) [] Depression/Anxiety Assessment (GAD7, PHQ-9, Anita Suicide, Harry Depression) [] Disability Scale [] [...] and care coordination was approximately 21-30 minutes. [facility] documented in this encounter Plan of Treatment Scheduled Orders Name Type Priority Associated Diagnoses Orde r Schedule Imaging SI Joint Injection Bilateral (14863) Imaging Schedule Routine, Read Routine (OP Routine) Sacroiliitis (HCC) Expected: 05/16/2024, Expires: 05/16/2025 documented as of this encounter Goals Goal Patient Goal Type Associated Problems Recent Progress Patient-Stated? Author CCM Chronic Pain Care Plan Chronic Care Management No change(05/16 2:51 PM SUPERVISOR [employer]ACE TEARING) No Rita Landa RN Note: Problem: Chronic [...] 05/07/2024 added in this encounter Care Teams Spool Sander Relationship Specialty Start Date End Date Carl Strickland MD [address] [facility] [address] [place] [address] PCP - General Internal Medicine 06/06/23 Leo Manzano MD [address] [facility] [id number] [place] [address] Surgeon Vascular Surgery 05/16/23 documented as of this encounter
--- OUTSIDE RECORDS SUMMARY | 2024-05-30 06:26 | XMS_ITS | Encounter Summary ---
Author Organization [facility] Healthcare Address [address] [place] [address] Care Team Providers Care Wire Bound Box Machine Operator Name Role Phone Leo Manzano MD Unavailable [phone] Carl Strickland MD Primary Care Provider Reason for Referral * Diagnostic Imaging (Routine) - Closed Specialty Diagnoses / Procedures Referred By Contac t Referred To Contact Diagnoses Sacroiliitis (HCC) Procedures Imaging SI Joint Injection Bilateral (25275) Adrianne Adams MD PhD [address] [place] [address] Phone: tel:[phone] fax: [facility] [address] [place] [address] Referral ID Status Reason Start Date Expiration Date Visits Re quested Visits Authorized [id number] Closed 01/20/2024 02/18/2025 1 1 Reason for Visit * Reason Comments Procedure Back Pain * Diagnostic Imaging (Routine) - Closed Specialty Diagnoses / Procedures Referred By Contac t Referred To Contact Diagnoses Sacroiliitis (HCC) Procedures Imaging SI Joint Injection Bilateral (51724) Adrianne Adams MD PhD [address] [place] [address] Phone: tel: fax: [facility] [address] [facility] [place] [address] Referral ID Status Reason Start Date Expiration Date Visits Re quested Visits Authorized [id number] Closed 01/20/2024 02/18/2025 1 1 Encounter Details Date Type Department Care Team (Latest Contact Info) Description 02/28/2024 9:44 AM CDT - 02/28/2024 11:59 PM CDT Hospital Encounter [facility] [address] [facility] [address] [place] [address] Hilaria Blankenship MD PhD [address] [facility] [phone] [place] [address] Adrianne Adams MD PhD [address] [place], [place] [id number] Sacroiliitis (HCC) (Primary Dx) Discharge Disposition: Discharge to home or self care Social History Tobacco Use Types Packs/Day Years Used Date Smoking Tobacco: Never Smokeless Tobacco: Never Tobacco Cessation:Counseling Given: Not Answered Alcohol Use Standard Drinks/Week Comments Not Currently 0 (1 standard drink = 0.6 oz pur e alcohol) [facility] Utilities Answer Date Recorded In the past 12 months has [employer], gas, oil, or water [email or web address] threatened to shut off services in your home? Patient declined 10/02/2023 Social Connection and Isolation Panel [NHANES] A nswer Date Recorded In a typical week, how many times do you talk on the phone with family, friends, or neighbors? Patient declined 10/02/2023 How often do you get togethe r with friends or relatives? Patient declined 10/02/2023 How often do you attend tenriism or mandaen serv ices? 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 [facility] DISCHARGE INSTRUCTIONS MEDICATIONS: [...] DIET: [x] Resume normal diet [] See [facility] Post Discharge Procedure Information Sheet ACTIVITY: [] Resume normal activity [x] See [facility] Post Discharge Procedure Information Sheet REFERRALS: Physical Therapy [] [facility] ([phone]) [] [facility] ([employer]ag[employer]) [] [facility] ([phone]) Option 1 [] [facility] ([employer]) [] [facility] ([phone]) [] Other: Behavior Medicine [] Pain Psychologist, [facility] Please call to schedule appointment [phone] or [phone] Diagnostic Test(s): May get Radiographs performed in Radiation/X-Ray 6th floor, [address]. [] Please call to schedule MRI or CT scan at [phone] [] Please call to schedule EMG at [phone] EDUCATION provided on the following: [] Spinal Cord Stimulator Education and DVD. Vendor: FOLLOW UP APPOINTMENTS: [] Return as needed [x] Follow up appointment: 8-12 weeks We will contact you the next business day to obtain: [] An update on your condition [] Your Pain diary scores [] Procedure at your next visit : INSTRUCTIONS before your next procedure: [] See [facility] Pre-Procedure Information Sheet [] Do not eat or drink for six (6) hours before the time/date of the procedure. [] Inquire with your prescribing provider if ok to hold blood thinner for ( ) days before procedure. [] Blood work required 2 hours before procedure: [] Economic Analysis Director needed for next procedure [] Pre Procedure instructions will be sent through [employer] or by phone two working days prior to procedure. *Need help with [employer]? Call [phone]. Patient provided information and repeated back with understanding. If you need to reach us: For any questions about your procedure, please call the Pain Management Center [phone] (M-F) (8am-4pm) If you need urgent attention after 5 pm and weekends: Call the [facility] Physics Department Chair at [phone] and ask for the Pain Service doctor operations staff specialist security. * Attachments The following attachments cannot be sent through Care Everywhere. * Meloxicam (By mouth) (Swedish) documented in this encounter Medications at Time [...] palpation of spinal processes. Paraspinal muscle tenderness. [id number] SPINE: Tenderness at the lumbosacral region. Positive [...] loading positive bilaterally SI joint tenderness, TANJA, [place]'s, Compression tests positive bilaterally Hip tenderness: negative [...] Clinical Fellow, Pain Management Department of Anesthesiology [facility] 02/28/24 Cosigned by Hilaria Blankenship MD PhD [...] Clinical Fellow, Pain Management Department of Anesthesiology [facility] 02/28/24 TEACHING ATTESTATION : I was present [...] Chronic Care Management No change(05/16 2:51 PM STRAIGHT PIN MAKING MACHINE OPERATOR) No Rita Landa, RN Note: Problem: [...] Results * Imaging SI Joint Injection Bilateral (58818) (02/28/2024 11:27 AM CDT) Narrative [id number] - [...] documented as of this encounter Care Teams Wire Bound Box Machine Operator Relationship Specialty Start Date End Date Carl Strickland MD [address] [facility] [address] [place] [address] PCP - General Internal Medicine 06/06/23 Leo Manzano MD [id number] [place] [address] Surgeon Vascular Surgery 05/16/23 documented as of this encounter
--- OUTSIDE RECORDS SUMMARY | 2024-05-30 06:26 | XMS_ITS | Referral Summary ---
Author Organization [facility] Address [address] [place] [address] Care Team Providers Care Healthcare Facility Administrator Name Role Phone Leo Manzano MD Unavailable [phone] Carl Strickland MD Primary Care Provider Encounters Date Type Department Care Team Description 05/23/2024 7:45 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 - 05/29/2024 10:36 AM EQUIPMENT OPERATOR Hospital Encounter [address] [phone] Gonzalez Lamar DO Ohman, John Westley, MD Abdominal pain (Primary Dx) Discharge Disposition: Discharge to home or self care 05/25/[address] [phone] Essie Singh RN 05/21/2024 4:17 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 - 05/21/2024 8:27 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 [facility] Emergency Department [address] [place] [phone] Marcus Amaya MD Nausea and vomiting, unspecified vomiting type (Primary Dx) Discharge Disposition: Discharge to home or self care 05/19/2024 9:40 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 - 05/20/2024 1:34 AM EQUIPMENT OPERATOR [facility] Emergency Department [address] [place] [address] Casandra Lock MD Renz, Nicholas Robert, MD Abdominal pain (Primary Dx); Chronic bilateral low back pain without sciatica; Abdominal aortic aneurysm dissection (HCC) Discharge Disposition: Discharge to home or self care 05/16/2024 2:39 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 - 05/16/2024 11:59 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 Hospital Encounter [facility] [place] at the [facility] [address] [facility] [address] [place] [address] Adrianne Adams MD PhD Sacroiliitis (HCC) (Primary Dx) Discharge Disposition: Discharge to home or self care 04/24/2024 Orders Only [facility] Nephrology [address] [place] [address] 5th [place] [address] [place] [address] Miguel Dominguez MD ANGI (acute kidney injury) (HCC) (Primary Dx); Primary hypertension; Anemia, unspecified type; Screening for hematuria or proteinuria 03/07/2024 11:53 AM CDT - 03/07/2024 11:59 PM CDT Hospital Encounter [facility] [address] [place] [address] Dissection of thoracoabdominal aorta (CMS/HCC) (HCC) Discharge Disposition: Discharge to home or self care 03/07/2024 3:00 PM CDT Office Visit [facility] Vascular Surgery [facility] Medical Office Building [address] [place] [phone] Leo Manzano MD Dissection of abdominal aorta (CMS/HCC) (HCC); Aftercare following surgery of the circulatory system 02/28/2024 9:44 AM CDT - 02/28/2024 11:59 PM CDT Hospital Encounter [facility] [place] at the [place] [id number] 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 - CT 06/13 shows no change in aneurysm, no stent migration, no increase in false lumen perfusion - non operative Polysubstance abuse ([facility]) 06/10/2023 Moderate malnutrition ([facility]) 06/09/2023 Dissection of abdominal aorta ([facility]) 06/03/19 24 Urinary retention 05/16/2023 Assessment & Plan (05/16/2023 10:44 AM EQUIPMENT OPERATOR): Patient with urinary retention requiring straight cath X1 05/15, now voiding without any issues. - Continue Flomax. - Patient requests urology follow up, referral placed. Epistaxis 05/13/2023 Assessment & Plan (05/13/2023 12:42 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): Significant nose bleed in the OR requiring intra-op ENT c/s. DL performed, no other sources of bleeding visualized. ACT post protamine 149. - ENT following - ocean spray tid - no other s/s bleeding Pneumonia 05/13/2023 Assessment & Plan (05/13/2023 12:43 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): Tracheal aspirate 05/05 with Haemophilus Inf - susana(05/04 - 05/10), linezolid (05/04-05/06) HTN (hypertension) 05/13/2023 Assessment & Plan (05/28/2024 8:41 AM EQUIPMENT OPERATOR): BP well controlled. - continue home [...] needed Assessment & Plan (06/24/2023 10:41 AM EQUIPMENT OPERATOR): Difficult to control Htn. Dr. Abarca following - Continue amlodipine, lisinopril, coreg, hydralazine - SBP goal 120-140 - VS q 4 hrs and prn Assessment & Plan (06/21/2023 7:57 AM EQUIPMENT OPERATOR): BP stable at present. Recommend discontinuation of the diltiazem and continue amlodipine (as opposed to giving two calcium channel blockers) Assessment & Plan (06/20/2023 8:33 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): BP improving. Recommend continue medications and follow up bp, except recommend discontinuation of the diltiazem as he is already on a calcium channel louie, amlodipine Assessment & Plan (06/18/2023 7:59 AM EQUIPMENT OPERATOR): Patient with continued hypertension. Blood pressure in the right arm levels are improved now in the 130s and 140s. Recommend consideration for adjustment of medications as follows. 1. Add spironolactone 25 mg a day 2. Consider adding clonidine 0.1 mg twice a day Assessment & Plan (06/11/2023 7:50 AM EQUIPMENT OPERATOR): Patient hypertensive. Recommend resuming hydralazine 25 mg 3 times a day. Continue the amlodipine and carvedilol. Follow-up blood pressure. The patient should have follow-up blood pressure when he leaves the hospital as well. Assessment & Plan (06/10/2023 3:48 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): Goal systolic BP 140-180 for one [...] status Assessment & Plan (06/09/2023 10:54 AM EQUIPMENT OPERATOR): Blood pressure well controlled at present. Medicines are being adjusted. Currently on carvedilol and hydralazine. A want to transition to amlodipine 5 mg a day to wean hydralazine, as tolerated, as 3 times a day medication can be difficult long-term Assessment & Plan (05/13/2023 12:49 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): Hx of uncontrolled HTN, non-compliant to [...] time Assessment & Plan (06/11/2023 7:50 AM EQUIPMENT OPERATOR): Clinically stable. Renal function stable. Blood pressure improved We will recommend genetic testing as an outpatient Assessment & Plan (06/10/2023 3:48 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): Presents with abdominal pain and concern for progression of dissection on CT - 06/05/23: OR s/p TEVAR extension and dissection stent placement - BP management per HTN - pain control - Q4 NV checks, Q2 VS - lovenox DVT ppx - He will f/u with Dr. Abarca as outpatient for genetics testing. Assessment & Plan (06/09/2023 10:54 AM EQUIPMENT OPERATOR): Clinically stable. Renal function stable. 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 No concern for mesenteric ischemia. - c/w impulse control - regular diet - transitioned to oral anti-hypertensive - pain management following. Now off lido drip and dilaudid DIRECTOR SPECIAL EDUCATION. Dilaudid discontinued 05/28. Pain signed off. Assessment & Plan (10/03/2023 2:00 PM CDT): Follows with Dr Rima Aly antihypertensives Assessment & Plan (06/18/2023 8:00 AM EQUIPMENT OPERATOR): Aortic imaging stable on recent CT scan. Continue blood pressure control. Assessment & Plan (05/02/2023 2:02 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): 32y/o male with uncontrolled HTN who presented to an OSH ER with acute onset shortness of breath, chest pain and back pain. 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 He was transferred to [facility] for further evaluation and treatment. Here, he [...] All feel these findings not to be patient accounting representative of a type a dissection, therefore [...] often do you attend chur ch or tenriism services? Never 05/24/2024 Do you belong to any clubs o r organizations such as pentecostalism groups, unions, fraternal or athletic groups, or [...] place to sleep or slept in a fdc (including now)? Patient declined 10/02/2023 Housing Stability [...] any time in the past 12 m [facility], were you homeless or living in a fdc (including now)? No 05/24/2024 Personal Safety Answer Date Recorded Have you ever been in or are you currently in a harmful physical or emotional relationship or is someone making you feel afraid or unsafe? Denies 05/23/2024 Sex and Gender Information Value Date Recorded Sex Assigned at Not on file Legal Sex Male 3:42 AM EQUIPMENT OPERATOR Gender Identity Not on file Sexual Orientation Straight 06/12/2023 11 :43 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 Last Filed Vital Signs Vital Sign Reading Time Taken Comments Blood Pressure 129/70 05/29/2024 10:10 AM EQUIPMENT OPERATOR Pulse 67 05/29/2024 7:57 AM EQUIPMENT OPERATOR Temperature 36.6 ??C (97.8 ??F) 05/29/2024 7:57 AM CS T Respiratory Rate 18 05/29/2024 7:57 AM EQUIPMENT OPERATOR Oxygen Saturation 96% 05/29/2024 7:57 AM EQUIPMENT OPERATOR Inhaled Oxygen Concentration - - Weight 99.8 kg (220 lb) 05/23/2024 9:15 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 Height 175.3 cm (5' 9 ) 05/23/2024 9:15 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 Body Mass Index 32.49 05/23/2024 9:15 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 Plan of Treatment Not on file Goals Goal Patient Goal Type Associated Problems Recent Progress Patient-Stated? Author CCM Chronic Pain Care Plan Chronic Care Management No change(05/16 2:51 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) No Rita Landa RN Note: Problem: Chronic Pain Goals: 1. Minimize further functional decline 2. Maximize quality of life 3. Control pain Strategies: - Activity/exercise program recommendation - Conservative stepwise pain medicine strategy with multi-disciplinary approach - Recommend healthy lifestyle strategies and compensatory methods as needed Medical Devices Implanted Type Area Ribbon Blockmaker Device Identifier Shelf Expiration Date Model / Serial / Lot [employer] Stent Graft Aortic Covered Tag [id number] Eptfe Nitinol [id number] - [id number] - [id number] Implanted:Qty : 1 on 05/02/2023 by Leo Manzano MD at [facility] Graft N/A: Aorta [employer] [id number] 12/07/2025 [id number] / [id number] / W[employer] Stent Graft Thoracic Side Branch Tag [id number] Eptfe Nitinol [id number] - [id number] - [id number] Implanted:Qty : 1 on 05/02/2023 by Leo Manzano MD at [facility] Stent Left: Subclavian [employer] [id number] 06/27/2025 [id number] / [id number] / W[employer] Graft Stent [place] Tag L20cm Od37mm Thoracic Active Control [id number] - [id number] - [id number] Implanted:Qty : 1 on 06/05/2023 by Nikhil Samuel MD at [facility] Stent N/A: Descending Thoracic Aorta [employer] [id number] 04/12/2024 [id number] / [id number] / [employer] Zenith 36mm 20-30mm 16mm 180mm 9 Dissection Introducer Sheath [id number] - [id number] Implanted:Qty : 1 on 06/05/2023 by Nikhil Samuel MD at [facility] Stent N/A: Descending Thoracic Aorta [employer] [id number] 12/20/2025 [id number] / / [id number] [employer] Device Clsr Perclose Prostyle Sut-Mediatd Closure-Repai r Sys 93517-36 - [id number] Implanted:Qty : 3 on 05/02/2023 by Leo Manzano MD at [facility] Vascular Closure Device Left: Common Femoral Artery [employer] [id number] 09/26/2024 [id number] / / [id number] Description:Same lot number [employer] Device Clsr Perclose Prostyle Sut-Mediatd Closure-Repai r Sys 26040-33 - [id number] Implanted:Qty : 1 on 06/05/2023 by Nikhil Samuel MD at [facility] Left: Groin [employer] [id number] 12/27/2024 [id number] / / [id number] [employer] Device Clsr Perclose Prostyle Sut-Mediatd Closure-Repai r Sys 44847-95 - [id number] Implanted:Qty : 1 on 06/05/2023 by Nikhil Samuel MD at [facility] Left: Groin [employer] [id number] 12/27/2024 [id number] / / [id number] [employer] Ron Contour 6fr 26cm Large Inner Lumen Low Profile Bladder Ag Taper Latex Free 180-223 - [id number] Implanted:Qty : 1 on 09/27/2023 by Marcus Glass MD at [facility] Right: Ureter [employer] 05/16/2026 [id number] / / [id number] [employer] Ron Contour 6fr 26cm Large Inner Lumen Low Profile Bladder Ag Taper Latex Free 180-223 - [id number] Implanted:Qty : 1 on 10/04/2023 by Otoniel Landa MD at [facility] Right: Ureter [employer] 05/16/2026 [id number] 230 / / [id number] Explanted Type Area Ribbon Blockmaker Device Identifier Shelf Expiration Date Model / Serial / Lot [employer] Inlay [place] 6fr 28cm Pusher Fluoro Marker Atraumatic Insertion Latex Free [id number] - [id number] Implanted:Qty: 1 on 07/04/2023 by Marcus Gamboa MD at [facility] Explanted:Qty: 1 on 07/14/2023 by Stacia Su MD Stent Left: Ureter [employer] [id number] 04/14/2027 [id number] / / [id number] Procedures Procedure Name Priority Date/Time Associated Diagnosis Comments EGFR Timed 05/28/2024 3:36 AM EQUIPMENT OPERATOR BASIC METABOLIC PANEL Timed 05/28/2024 3:36 AM EQUIPMENT OPERATOR CBC WITHOUT DIFFERENTIAL Timed 05/28/2024 3:36 AM EQUIPMENT OPERATOR LIDOCAINE LEVEL Timed 05/28/2024 3:36 AM EQUIPMENT OPERATOR LIDOCAINE LEVEL Timed 05/27/2024 3:29 AM EQUIPMENT OPERATOR TYPE AND SCREEN Timed 05/27/2024 3:29 AM EQUIPMENT OPERATOR EGFR Routine 05/26/2024 4:38 AM EQUIPMENT OPERATOR LIDOCAINE LEVEL Timed 05/26/2024 4:38 AM EQUIPMENT OPERATOR BASIC METABOLIC PANEL Routine 05/26/2024 4:38 AM EQUIPMENT OPERATOR CBC WITHOUT DIFFERENTIAL Routine 05/26/2024 4:38 AM EQUIPMENT OPERATOR EGFR Routine 05/25/2024 4:20 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 BASIC METABOLIC PANEL Routine 05/25/2024 4:20 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 CBC WITHOUT DIFFERENTIAL Routine 05/25/2024 4:20 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 LIDOCAINE LEVEL Routine 05/25/2024 4:20 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 CRITICAL CARE Routine 05/25/2024 8:12 AM EQUIPMENT OPERATOR Abdominal pain POCT GLUCOSE DEVICE Routine 05/25/2024 4 :16 AM EQUIPMENT OPERATOR POCT GLUCOSE DEVICE Routine 05/24/2024 11:36 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 POCT GLUCOSE DEVICE Routine 05/24/2024 8 :50 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 CRITICAL CARE Routine 05/24/2024 8:47 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 Abdominal pain EGFR Routine 05/24/2024 5:43 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 DIFFERENTIAL AUTO Routine 05/24/2024 5:4 3 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 LACTATE, WHOLE BLOOD STAT 05/24/2024 5:43 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 AMYLASE Routine 05/24/2024 5:43 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 PHOSPHORUS Routine 05/24/2024 5:43 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 MAGNESIUM Routine 05/24/2024 5:43 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 COMPREHENSIVE METABOLIC PANEL Routine 05/24/2024 5:43 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 CBC WITH AUTO DIFFERENTIAL Routine 05/24/2024 5:43 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 POCT GLUCOSE DEVICE Routine 05/24/2024 3 :52 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 POCT GLUCOSE DEVICE Routine 05/24/2024 11:06 AM EQUIPMENT OPERATOR POCT GLUCOSE DEVICE Routine 05/24/2024 7 :46 AM EQUIPMENT OPERATOR CRITICAL CARE Routine 05/24/2024 6:15 AM EQUIPMENT OPERATOR Abdominal pain POCT GLUCOSE DEVICE Routine 05/24/2024 3 :23 AM EQUIPMENT OPERATOR POCT GLUCOSE DEVICE Routine 05/23/2024 11:04 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 EGFR STAT 05/23/2024 8:33 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 DIFFERENTIAL AUTO STAT 05/23/2024 8:3 3 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 PROTIME-INR STAT 05/23/2024 8:33 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 APTT STAT 05/23/2024 8:33 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 TYPE AND SCREEN Timed 05/23/2024 8:33 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 CBC WITH AUTO DIFFERENTIAL STAT 05/23/2024 8:33 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 CREATINE KINASE (CK), TOTAL STAT 05/23/2024 8:33 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 LACTATE STAT 05/23/2024 8:33 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 CALCIUM, IONIZED STAT 05/23/2024 8:33 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 PHOSPHORUS STAT 05/23/2024 8:33 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 MAGNESIUM STAT 05/23/2024 8:33 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 COMPREHENSIVE METABOLIC PANEL STAT 05/23/2024 8: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 BODY OUTSIDE REFERENCE Routine 05/23/2024 8: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 BODY OUTSIDE CONSULT Routine 05/23/2024 8:18 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 POCT GLUCOSE DEVICE Routine 05/23/2024 7 :47 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 POCT RAPID HIV ANTIBODY COMMUNITY SCREENING-PAPA ELIGIBLE Routine 05/21/2024 7:35 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 OXYCODONE CONFIRMATION, URINE Routine 05/21/2024 5:34 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 FENTANYL CONFIRMATION, MS URINE Routine 05/21/2024 5:34 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 AMPHETAMINE, URINE, CONFIRMATION Routine 05/21/2024 5:34 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 URINALYSIS, MICROSCOPIC ONLY STAT 05/21/2024 5:34 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 DRUGS OF ABUSE SCREEN, URINE WITH REFLEX CONFIRMATION Routine 05/21/2024 5:34 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 URINALYSIS AND REFLEX TO MICROSCOPIC STAT 05/21/2024 5:34 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 SEPSIS LACTATE WITH REFLEX STAT 05/21/2024 4:33 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 EGFR STAT 05/21/2024 3:41 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 DIFFERENTIAL AUTO STAT 05/21/2024 3:4 1 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 LIPASE STAT 05/21/2024 3:41 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 COMPREHENSIVE METABOLIC PANEL STAT 05/21/2024 3:41 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 CBC WITH AUTO DIFFERENTIAL STAT 05/21/2024 3:41 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 ECG 12-LEAD STAT 05/21/2024 2:24 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 ECG 12-LEAD STAT 05/19/2024 11:55 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 XR CHEST PA LATERAL 2 VIEWS ED 05/19/2024 10:34 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 CTA CHEST ABDOMEN PELVIS ED 05/19/2024 10:20 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 EGFR STAT 05/19/2024 9:12 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 DIFFERENTIAL AUTO Timed 05/19/2024 9:1 2 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 TROPONIN I HIGH-SENSITIVITY SERIES (BASELINE, 2HR, 4HR, 6HR) STAT 05/19/2024 9:12 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 TYPE AND SCREEN STAT 05/19/2024 9:12 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 APTT STAT 05/19/2024 9:12 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 PROTIME-INR STAT 05/19/2024 9:12 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 COMPREHENSIVE METABOLIC PANEL STAT 05/19/2024 9:12 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 CBC WITH AUTO DIFFERENTIAL Timed 05/19/2024 9:12 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 POC ISTAT Routine 03/07/2024 12:09 PM [...] Maintenance Results * eGFR (05/28/2024 3:36 AM EQUIPMENT OPERATOR) eGFR >90 >=60 mL/min/1. 73 m2 [...] last reviewed 2021. Blood 05/28/2024 3:36 AM EQUIPMENT OPERATOR 05/28/2024 4:30 AM EQUIPMENT OPERATOR Leo Manzano MD LAB BLOOD ORDERABLES Final Result Performing Organization Address [facility] de Phone Number [facility] Department of Laboratories [place], [place] [id number] * (ABNORMAL) Lidocaine level (05/28/2024 3:36 AM EQUIPMENT OPERATOR) Lidocaine (Xylocaine) <1.0(L) 1.5 - 5.0 mcg/mL Blood 05/28/2024 3:36 AM EQUIPMENT OPERATOR 05/28/2024 4:30 AM EQUIPMENT OPERATOR Gonzalez Lamar DO LAB BLOOD ORDERABLES Fin al Result Performing Organization Address [facility] de Phone Number [facility] [place] [address] * (ABNORMAL) CBC without differential (05/28/2024 3:36 AM EQUIPMENT OPERATOR) WBC 5.0 3.8 - 9.9 K/cumm Hgb 11.7(L) 13.0 - 17.5 g/dL [facility] Hct 35.3(L) 38.9 - 50.3 % [facility] Plt 240 150 - 400 K/cumm [facility] MPV 9.5 9.1 - 12.3 fL [facility] RBC 3.82(L) 4.30 - 5.80 M/cumm [facility] MCV 92.4 81.3 - 96.4 fL [facility] MCH 30.6 27.1 - 33.3 pg [facility] MCHC 33.1 32.3 - 35.7 g/dL [facility] RDW CV 13.3 11.1 - 14.9 % [facility] RDW SD 45.1 35.7 - 48.1 fL [facility] NRBC abs 0.00 0.00 - 0.01 K/cumm [facility] Blood 05/28/2024 3:36 AM EQUIPMENT OPERATOR 05/28/2024 4:32 AM EQUIPMENT OPERATOR Leo Manzano MD LAB BLOOD ORDERABLES Final Result [facility] [place] [address] * Basic metabolic panel (05/28/2024 3:36 AM EQUIPMENT OPERATOR) Sodium 140 135 - 145 mmol/L Potassium, pl 4.0 3.3 - 4.9 mmol/L [facility] Chloride 103 97 - 110 mmol/L [facility] CO2 25 22 - 32 mmol/L [facility] Anion gap 12 2 - 15 mmol/L [facility] BUN 18 6 - 25 mg/dL [facility] Creatinine 1.10 0.80 - 1.30 mg/dL [facility] Glucose 85 70 - 199 mg/dL [facility] Comment: Interpretive Data Fasting glucose >/= 126 [...] 2022. Calcium 9.1 8.5 - 10.3 mg/dL [facility] Blood 05/28/2024 3:36 AM EQUIPMENT OPERATOR 05/28/2024 4:30 AM EQUIPMENT OPERATOR Leo Manzano MD LAB BLOOD ORDERABLES Final Result Performing Organization Address [facility] de Phone Number [facility] [place] [address] * Lidocaine level (05/27/2024 3:29 AM EQUIPMENT OPERATOR) Pathologist [facility] Lidocaine (Xylocaine) 1.5 1.5 - 5.0 mcg/mL Blood 05/27/2024 3:29 AM EQUIPMENT OPERATOR 05/27/2024 4:21 AM EQUIPMENT OPERATOR Gonzalez Lamar DO LAB BLOOD ORDERABLES Fin al Result Performing Organization Address [facility] [place] [address] * Type and screen (05/27/2024 3:29 AM EQUIPMENT OPERATOR) [facility] Ellen, indirect Negative ABO Rh A Positive [facility] Blood 05/27/2024 3:29 AM EQUIPMENT OPERATOR 05/27/2024 4:33 AM EQUIPMENT OPERATOR Narrative [facility] - 05/27/2024 5:33 AM EQUIPMENT OPERATOR Has the patient had Daratumumab or Isatuximab in the past 6 months?->Unknown Moriah Amin NP LAB BLOOD BANK TEST ORDERABLE S Final Result Performing Organization Address [facility] [place] [address] * eGFR (05/26/2024 4:38 AM EQUIPMENT OPERATOR) [facility] eGFR 86 >=60 mL/min/1. 73 m2 Comment: [...] last reviewed 2021. Blood 05/26/2024 4:38 AM EQUIPMENT OPERATOR 05/26/2024 5:46 AM EQUIPMENT OPERATOR us Moriah Amin ERP CONSULTANT LAB BLOOD ORDERABLES Final Re sult Performing Organization Address [facility] de Phone Number [facility] [place] [address] * Lidocaine level (05/26/2024 4:38 AM EQUIPMENT OPERATOR) Lidocaine (Xylocaine) 1.8 1.5 - 5.0 mcg/mL Blood 05/26/2024 4:38 AM EQUIPMENT OPERATOR 05/26/2024 5:46 AM EQUIPMENT OPERATOR us Gonzalez Lamar DO LAB BLOOD ORDERABLES Fin al Result Performing Organization Address [facility] de Phone Number [facility] [place] [address] * (ABNORMAL) CBC without differential (05/26/2024 4:38 AM EQUIPMENT OPERATOR) [facility] WBC 5.5 3.8 - 9.9 K/cumm Hgb 11.5(L) 13.0 - 17.5 g/dL [facility] Hct 34.0(L) 38.9 - 50.3 % [facility] Plt 222 150 - 400 K/cumm [facility] MPV 9.7 9.1 - 12.3 fL [facility] RBC 3.67(L) 4.30 - 5.80 M/cumm [facility] MCV 92.6 81.3 - 96.4 fL [facility] MCH 31.3 27.1 - 33.3 pg [facility] MCHC 33.8 32.3 - 35.7 g/dL [facility] RDW CV 13.3 11.1 - 14.9 % [facility] RDW SD 45.5 35.7 - 48.1 fL [facility] NRBC abs 0.00 0.00 - 0.01 K/cumm [facility] Blood 05/26/2024 4:38 AM EQUIPMENT OPERATOR 05/26/2024 5:46 AM EQUIPMENT OPERATOR Moriah Amin NP LAB BLOOD ORDERABLES Final Re sult [facility] [place] [address] * Basic metabolic panel (05/26/2024 4:38 AM EQUIPMENT OPERATOR) [facility] Sodium 141 135 - 145 mmol/L Potassium, pl 3.9 3.3 - 4.9 mmol/L [facility] Chloride 107 97 - 110 mmol/L [facility] CO2 26 22 - 32 mmol/L [facility] Anion gap 8 2 - 15 mmol/L [facility] BUN 15 6 - 25 mg/dL [facility] Creatinine 1.16 0.80 - 1.30 mg/dL [facility] Glucose 78 70 - 199 mg/dL [facility] Comment: Interpretive Data Fasting glucose >/= 126 [...] 2022. Calcium 8.6 8.5 - 10.3 mg/dL [facility] Blood 05/26/2024 4:38 AM EQUIPMENT OPERATOR 05/26/2024 5:46 AM EQUIPMENT OPERATOR us Moriah Amin ERP CONSULTANT LAB BLOOD ORDERABLES Final Re sult [facility] [place] [address] * eGFR (05/25/2024 4:20 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) eGFR >90 >=60 mL/min/1. 73 m2 [...] last reviewed 2021. Blood 05/25/2024 4:20 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 05/25/2024 4:33 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 Moriah Amin ERP CONSULTANT LAB BLOOD ORDERABLES Final Re sult Performing Organization Address [facility] Co de Phone Number [facility] [place] [address] * Lidocaine level (05/25/2024 4:20 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) Pathologist [facility] Lidocaine (Xylocaine) 2.1 1.5 - 5.0 mcg/mL Blood 05/25/2024 4:20 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 05/25/2024 4:33 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 Narrative [facility] - 05/25/2024 5:02 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 Draw 24 hours after infusion started. Moriah Amin ERP CONSULTANT LAB BLOOD ORDERABLES Final Re sult Performing Organization Address [facility] Co de Phone Number [facility] [place] [address] * (ABNORMAL) CBC without differential (05/25/2024 4:20 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) WBC 6.1 3.8 - 9.9 K/cumm Hgb 12.1(L) 13.0 - 17.5 g/dL [facility] Hct 36.3(L) 38.9 - 50.3 % [facility] Plt 246 150 - 400 K/cumm [facility] MPV 9.6 9.1 - 12.3 fL [facility] RBC 4.03(L) 4.30 - 5.80 M/cumm [facility] MCV 90.1 81.3 - 96.4 fL [facility] MCH 30.0 27.1 - 33.3 pg [facility] MCHC 33.3 32.3 - 35.7 g/dL [facility] RDW CV 13.3 11.1 - 14.9 % [facility] RDW SD 44.0 35.7 - 48.1 fL [facility] NRBC abs 0.00 0.00 - 0.01 K/cumm [facility] Blood 05/25/2024 4:20 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 05/25/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 4:33 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 Moriah Amin NP LAB BLOOD ORDERABLES Final Re sult [facility] [place] [address] * Basic metabolic panel (05/25/2024 4:20 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) Sodium 140 135 - 145 mmol/L Potassium, pl 3.9 3.3 - 4.9 mmol/L [facility] Chloride 106 97 - 110 mmol/L [facility] CO2 25 22 - 32 mmol/L [facility] Anion gap 9 2 - 15 mmol/L [facility] BUN 10 6 - 25 mg/dL [facility] Creatinine 0.92 0.80 - 1.30 mg/dL [facility] Glucose 98 70 - 199 mg/dL [facility] Comment: Interpretive Data Fasting glucose >/= 126 [...] 2022. Calcium 8.9 8.5 - 10.3 mg/dL [facility] Blood 05/25/2024 4:20 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 05/25/2024 4:33 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 Moriah Amin ERP CONSULTANT LAB BLOOD ORDERABLES Final Re sult Performing Organization Address [facility]/ZIP Co de Phone Number JAIRON [facility] [place] [address] * Critical Care (05/25/2024 8:12 AM EQUIPMENT OPERATOR) Narrative Rafiq Rodriguez MD - 05/25/2024 8:12 AM EQUIPMENT OPERATOR Moriah Amin, TREE ? 05/25/2024 ??3:35 PM [...] plan with the patient's team and other medical/recruitment consultant staff. This time was in addition to and separate from care provided by other practitioners on this day of service. ?? Moriah Amin ERP CONSULTANT IN CLINIC/BEDSIDE ORDERABLES Final Result * POCT glucose (05/25/2024 4:16 AM EQUIPMENT OPERATOR) [facility] Signature Glucose, POC 117 70 - 199 mg/dL Blood 05/25/2024 4:16 AM EQUIPMENT OPERATOR 05/25/2024 4:16 AM EQUIPMENT OPERATOR Gonzalez Lamar DO LAB POCT ORDERABLES - DE VICE Final Result Performing Organization Address [facility]/ZIP Co de Phone Number [facility] [place] [address] * POCT glucose (05/24/2024 11:36 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) Glucose, POC 116 70 - 199 mg/dL Blood 05/24/2024 11:3 6 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 05/24/2024 11:36 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 Gonzalez Lamar DO LAB POCT ORDERABLES - DE VICE Final Result Performing Organization Address [facility] Phone Number [facility] [place] [address] * POCT glucose (05/24/2024 8:50 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) Glucose, POC 123 70 - 199 mg/dL Blood 05/24/2024 8:50 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 05/24/2024 8:50 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 Gonzalezallan Lamar DO LAB POCT ORDERABLES - DE VICE Final Result Performing Organization Address [facility] Phone Number [facility] [place] [address] * Critical Care (05/24/2024 8:47 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) Narrative Ag Lemos MD - 05/24/2024 8:47 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 Ag Lemos MD ? 05/25/2024 ??6:53 [...] plan with the ICU team and other medical/recruitment consultant staff, making frequent assessments and decisions [...] Final Result * eGFR (05/24/2024 5:43 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) eGFR >90 >=60 mL/min/1. 73 m2 [...] last reviewed 2021. Blood 05/24/2024 5:43 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 05/24/2024 6:00 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 us Gonzalez Lamar DO LAB BLOOD ORDERABLES Fin al Result [facility] [place] [address] * Differential, auto (05/24/2024 5:43 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) Neutrophil abs 4.9 1.5 - 6.5 K/cumm Imm gran abs 0.0 0.0 - 0.1 K/cumm [facility] Lymphocyte abs 1.4 0.8 - 3.3 K/cumm [facility] Monocyte abs 0.8 0.2 - 0.8 K/cumm [facility] Eosinophil abs 0.1 0.0 - 0.5 K/cumm [facility] Basophil abs 0.1 0.0 - 0.1 K/cumm [facility] Neutrophil pct 67.4 % [facility] Comment: Interpretive Data Percent cell count reference ranges are not reported, since discordance with absolute values may lead to misinterpretation of CBC data. Current Interpretive Data was last revised on 2017. Imm gran pct 0.4 % [facility] Comment: Interpretive Data Percent cell count reference ranges are not reported, since discordance with absolute values may lead to misinterpretation of CBC data. Current Interpretive Data was last revised on 2017. Lymphocyte pct 19.4 % [facility] Comment: Interpretive Data Percent cell count reference ranges are not reported, since discordance with absolute values may lead to misinterpretation of CBC data. Current Interpretive Data was last revised on 2017. Monocyte pct 11.3 % [facility] Comment: Interpretive Data Percent cell count reference ranges are not reported, since discordance with absolute values may lead to misinterpretation of CBC data. Current Interpretive Data was last revised on 2017. Eosinophil pct 0.8 % [facility] Comment: Interpretive Data Percent cell count reference ranges are not reported, since discordance with absolute values may lead to misinterpretation of CBC data. Current Interpretive Data was last revised on 2017. Basophil pct 0.7 % [facility] Comment: Interpretive Data Percent cell count reference ranges are not reported, since discordance with absolute values may lead to misinterpretation of CBC data. Current Interpretive Data was last revised on 2017. Blood 05/24/2024 5:43 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 05/24/2024 6:00 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 Gonzalez Lamar DO LAB BLOOD ORDERABLES Fin al Result Performing Organization Address City/[facility]/ZIP Co de Phone Number [facility] [place] [address] * (ABNORMAL) CBC with auto differential (05/24/2024 5:43 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) WBC 7.2 3.8 - 9.9 K/cumm Hgb 11.5(L) 13.0 - 17.5 g/dL [facility] Hct 34.7(L) 38.9 - 50.3 % [facility] Plt 233 150 - 400 K/cumm [facility] MPV 9.2 9.1 - 12.3 fL [facility] RBC 3.77(L) 4.30 - 5.80 M/cumm [facility] MCV 92.0 81.3 - 96.4 fL [facility] MCH 30.5 27.1 - 33.3 pg [facility] MCHC 33.1 32.3 - 35.7 g/dL [facility] RDW CV 13.0 11.1 - 14.9 % [facility] RDW SD 43.8 35.7 - 48.1 fL [facility] NRBC abs 0.00 0.00 - 0.01 K/cumm [facility] Blood 05/24/2024 5:43 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 05/24/2024 6:00 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 Gonzalez Lamar DO LAB BLOOD ORDERABLES Fin al Result Performing Organization Address City/[facility]/ZIP Co de Phone Number [facility] [place] [address] * Lactate, whole blood (05/24/2024 5:43 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) [facility] Lactate, bld 0.7 0.7 - 2.0 mmol/L Blood 05/24/2024 5:43 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 05/24/2024 5:50 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 Moriah Amin ERP CONSULTANT LAB BLOOD ORDERABLES Final Re sult Performing Organization Address City/State/[facility] Co de Phone Number [facility] [place] [address] * Phosphorus (05/24/2024 5:43 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) [facility] Phosphorus, pl 2.7 2.3 - 4.5 mg/dL Blood 05/24/2024 5:43 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 05/24/2024 6:00 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 Gonzalez Lamar DO LAB BLOOD ORDERABLES Fin al Result Performing Organization Address [facility] Co de Phone Number [facility] [place] [address] * Magnesium (05/24/2024 5:43 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) [facility] Magnesium 2.0 1.4 - 2.5 mg/dL Blood 05/24/2024 5:43 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 05/24/2024 6:00 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 Gonzalez Lamar DO LAB BLOOD ORDERABLES Fin al Result Performing Organization Address [facility] [place] [address] * Amylase (05/24/2024 5:43 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) [facility] Amylase 35 30 - 99 Units/L Blood 05/24/2024 5:43 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 05/24/2024 6:00 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 Moriah Amin NP LAB BLOOD ORDERABLES Final Re sult [facility] [place] [address] * Comprehensive metabolic panel (05/24/2024 5:43 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) Sodium 140 135 - 145 mmol/L Potassium, pl 3.9 3.3 - 4.9 mmol/L [facility] Chloride 105 97 - 110 mmol/L [facility] CO2 25 22 - 32 mmol/L [facility] Anion gap 10 2 - 15 mmol/L [facility] BUN 6 6 - 25 mg/dL [facility] Creatinine 0.88 0.80 - 1.30 mg/dL [facility] Glucose 86 70 - 199 mg/dL [facility] Comment: Interpretive Data Fasting glucose >/= 126 [...] 2022. Calcium 8.9 8.5 - 10.3 mg/dL [facility] Bilirubin, total 0.8 0.1 - 1.2 mg/dL [facility] Protein, pl 6.7 6.5 - 8.5 g/dL [facility] Albumin 4.1 3.5 - 5.0 g/dL [facility] Alk phos 81 40 - 130 Units/L [facility] ALT 15 7 - 55 Units/L [facility] AST 17 10 - 50 Units/L [facility] Blood 05/24/2024 5:43 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 05/24/2024 6:00 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 us Gonzalez Lamar DO LAB BLOOD ORDERABLES Fin al Result [facility] [place] [address] * POCT glucose (05/24/2024 3:52 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) Glucose, POC 84 70 - 199 mg/dL Blood 05/24/2024 3:52 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 05/24/2024 3:52 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 us Gonzalez Lamar DO LAB POCT ORDERABLES - DE VICE Final Result Performing Organization Address [facility] Co de Phone Number JA[facility] [place] [address] * POCT glucose (05/24/2024 11:06 AM EQUIPMENT OPERATOR) Glucose, POC 138 70 - 199 mg/dL Blood 05/24/2024 11:0 6 AM EQUIPMENT OPERATOR 05/24/2024 11:06 AM EQUIPMENT OPERATOR us Gonzalez Lamar DO LAB POCT ORDERABLES - DE VICE Final Result Performing Organization Address [facility] Co de Phone Number [facility] [place] [address] * POCT glucose (05/24/2024 7:46 AM EQUIPMENT OPERATOR) Glucose, POC 86 70 - 199 mg/dL Blood 05/24/2024 7:46 AM EQUIPMENT OPERATOR 05/24/2024 7:46 AM EQUIPMENT OPERATOR us Gonzalez Lamar DO LAB POCT ORDERABLES - DE VICE Final Result Performing Organization Address City/[facility] Co de Phone Number JAIRON [facility] [place] [address] * Critical Care (05/24/2024 6:15 AM EQUIPMENT OPERATOR) Narrative Rafiq Rodriguez MD - 05/24/2024 6:15 AM EQUIPMENT OPERATOR Moriah Amin NP ? 05/24/2024 ??5:42 [...] plan with the ICU team and other medical/recruitment consultant staff, making frequent assessments and decisions [...] the following conditions: ?? us Moriah Amin ERP CONSULTANT IN CLINIC/BEDSIDE ORDERABLES Final Result * POCT glucose (05/24/2024 3:23 AM EQUIPMENT OPERATOR) Glucose, POC 85 70 - 199 mg/dL Blood 05/24/2024 3:23 AM EQUIPMENT OPERATOR 05/24/2024 3:23 AM EQUIPMENT OPERATOR us Gonzalez Lamar DO LAB POCT ORDERABLES - DE VICE Final Result [facility] [place] [address] * POCT glucose (05/23/2024 11:04 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) Glucose, POC 84 70 - 199 mg/dL Blood 05/23/2024 11:0 4 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 05/23/2024 11:04 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 Gonzalez Otoniel Willard DO LAB POCT ORDERABLES - DE VICE Final Result Performing Organization Address [facility] Co de Phone Number JAIRON [facility] [place] [address] * Lactate (05/23/2024 8:33 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) Lactate 0.7 0.7 - 2.0 mmol/L Blood 05/23/2024 8:33 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 05/23/2024 9:39 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 Gonzalez Lamar DO LAB BLOOD ORDERABLES Fin al Result Performing Organization Address [facility] Phone Number [facility] [place] [address] * eGFR (05/23/2024 8:33 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) eGFR >90 >=60 mL/min/1. 73 m2 [...] last reviewed 2021. Blood 05/23/2024 8:33 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 05/23/2024 9:17 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 us Gonzalez Lamar DO LAB BLOOD ORDERABLES Fin al Result [facility] [place] [address] * Differential, auto (05/23/2024 8:33 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) Neutrophil abs 3.9 1.5 - 6.5 K/cumm Imm gran abs 0.0 0.0 - 0.1 K/cumm [facility] Lymphocyte abs 1.9 0.8 - 3.3 K/cumm [facility] Monocyte abs 0.8 0.2 - 0.8 K/cumm [facility] Eosinophil abs 0.0 0.0 - 0.5 K/cumm [facility] Basophil abs 0.0 0.0 - 0.1 K/cumm [facility] Neutrophil pct 58.1 % [facility] Comment: Interpretive Data Percent cell count reference ranges are not reported, since discordance with absolute values may lead to misinterpretation of CBC data. Current Interpretive Data was last revised on 2017. Imm gran pct 0.4 % [facility] Comment: Interpretive Data Percent cell count reference ranges are not reported, since discordance with absolute values may lead to misinterpretation of CBC data. Current Interpretive Data was last revised on 2017. Lymphocyte pct 28.1 % [facility] Comment: Interpretive Data Percent cell count reference ranges are not reported, since discordance with absolute values may lead to misinterpretation of CBC data. Current Interpretive Data was last revised on 2017. Monocyte pct 12.4 % [facility] Comment: Interpretive Data Percent cell count reference ranges are not reported, since discordance with absolute values may lead to misinterpretation of CBC data. Current Interpretive Data was last revised on 2017. Eosinophil pct 0.4 % [facility] Comment: Interpretive Data Percent cell count reference ranges are not reported, since discordance with absolute values may lead to misinterpretation of CBC data. Current Interpretive Data was last revised on 2017. Basophil pct 0.6 % [facility] Comment: Interpretive Data Percent cell count reference ranges are not reported, since discordance with absolute values may lead to misinterpretation of CBC data. Current Interpretive Data was last revised on 2017. Blood 05/23/2024 8:33 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 05/23/2024 9:29 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 Gonzalez Lamar DO LAB BLOOD ORDERABLES Fin al Result Performing Organization Address [facility] Co de Phone Number [facility] [place] [address] * (ABNORMAL) Calcium, ionized (05/23/2024 8:33 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) Pathologist [facility] Calcium, Ionized 4.48(L) 4.50 - 5.10 mg/dL Blood 05/23/2024 8:33 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 05/23/2024 9:17 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 Gonzalez Lamar DO LAB BLOOD ORDERABLES Fin al Result Performing Organization Address [facility] de Phone Number [facility] [place] [address] * (ABNORMAL) CBC with auto differential (05/23/2024 8:33 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) Pathologist [facility] WBC 6.8 3.8 - 9.9 K/cumm Hgb 11.4(L) 13.0 - 17.5 g/dL [facility] Hct 33.7(L) 38.9 - 50.3 % [facility] Plt 237 150 - 400 K/cumm [facility] MPV 9.5 9.1 - 12.3 fL [facility] RBC 3.80(L) 4.30 - 5.80 M/cumm [facility] MCV 88.7 81.3 - 96.4 fL [facility] MCH 30.0 27.1 - 33.3 pg [facility] MCHC 33.8 32.3 - 35.7 g/dL [facility] RDW CV 13.0 11.1 - 14.9 % [facility] RDW SD 42.2 35.7 - 48.1 fL [facility] NRBC abs 0.00 0.00 - 0.01 K/cumm [facility] Blood 05/23/2024 8:33 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 05/23/2024 9:29 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 Gonzalez Lamar DO LAB BLOOD ORDERABLES Fin al Result Performing Organization Address [facility] de Phone Number [facility] [place] [address] * aPTT (05/23/2024 8:33 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) aPTT 31 28 - 38 sec Comment: Interpretive Data Heparin therapeutic range: 66.0 - 100.0 seconds. Range based on correlation with therapeutic heparin activity range of 0.3 - 0.7 Units/mL. Current interpretive data was last revised on 2023. Blood 05/23/2024 8:33 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 05/23/2024 9:20 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 Gonzalez Lamar DO LAB BLOOD ORDERABLES Fin al Result Performing Organization Address [facility] de Phone Number [facility] [place] [address] * (ABNORMAL) Protime-INR (05/23/2024 8:33 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) PT 14.6(H) 9.7 - 13.0 sec INR 1.34(H) 0.90 - 1.20 [facility] Comment: Interpretive data Oral anticoagulant therapeutic ranges: Venous thromboembolism prophylaxis or treatment: 2.0-3.0 CARDIOLOGY Standard range: 2.0-3.0 High-intensity range: 2.5-3.5 Refer to indication-specific guidelines for appropriate target ranges for prosthetic heart valve replacement. Current interpretive data was last revised on 2019. Blood 05/23/2024 8:33 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 05/23/2024 9:20 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 Gonzalez Lamar DO LAB BLOOD ORDERABLES Fin al Result Performing Organization Address City/[facility] Co de Phone Number [facility] [place] [address] * Type and screen (05/23/2024 8:33 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) Ellen, indirect Negative ABO Rh A Positive [facility] Blood 05/23/2024 8:33 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 05/23/2024 9:31 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 Narrative [facility] - 05/23/2024 10:36 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 Has the patient had Daratumumab or Isatuximab in the past 6 months?->Unknown Moriah Amin ERP CONSULTANT LAB BLOOD BANK TEST ORDERABLE S Final Result Performing Organization Address [facility] [place] [address] * Phosphorus (05/23/2024 8:33 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) Phosphorus, pl 2.5 2.3 - 4.5 mg/dL Blood 05/23/2024 8:33 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 05/23/2024 9:17 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 Gonzalez Lamar DO LAB BLOOD ORDERABLES Fin al Result Performing Organization Address City/[facility] Co de Phone Number [facility] [place] [address] * Magnesium (05/23/2024 8:33 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) [facility] Magnesium 2.0 1.4 - 2.5 mg/dL Blood 05/23/2024 8:33 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 05/23/2024 9:17 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 Gonzalez Lamar DO LAB BLOOD ORDERABLES Fin al Result Performing Organization Address [facility] Co de Phone Number [facility] [place] [address] * Creatine kinase (CK), total (05/23/2024 8:33 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) [facility] CK 159 40 - 300 Units/L Blood 05/23/2024 8:33 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 05/23/2024 9:17 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 Gonzalez Lamar DO LAB BLOOD ORDERABLES Fin al Result Performing Organization Address [facility] de Phone Number [facility] [place] [address] * (ABNORMAL) Comprehensive metabolic panel (05/23/2024 8:33 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) [facility] Sodium 141 135 - 145 mmol/L Potassium, pl 3.2(L) 3.3 - 4.9 mmol/L [facility] Chloride 105 97 - 110 mmol/L [facility] CO2 25 22 - 32 mmol/L [facility] Anion gap 11 2 - 15 mmol/L [facility] BUN 11 6 - 25 mg/dL [facility] Creatinine 1.03 0.80 - 1.30 mg/dL [facility] Glucose 84 70 - 199 mg/dL [facility] Comment: Interpretive Data Fasting glucose >/= 126 [...] Calcium 9.0 8.5 - 10.3 mg/dL [facility] Bilirubin, total 1.2 0.1 - 1.2 mg/dL [facility] Protein, pl 7.0 6.5 - 8.5 g/dL [facility] Albumin 4.2 3.5 - 5.0 g/dL [facility] Alk phos 83 40 - 130 Units/L [facility] ALT 15 7 - 55 Units/L [facility] AST 16 10 - 50 Units/L [facility] Blood 05/23/2024 8:33 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 05/23/2024 9:17 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 us Gonzalez Lamar DO LAB BLOOD ORDERABLES Fin al Result Performing Organization Address City/Va Hospital/ZIP Co de Phone Number [facility] [place] [address] * CT Body Outside Reference (05/23/2024 8:22 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) Impressions [facility] - 05/23/2024 8:22 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 These images are for Reference purposes only and have not been reviewed by [facility] Radiology. ??There will be no report generated by a [facility] Radiologist. Narrative [facility] - 05/23/2024 8:22 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 EXAMINATION: ??Images For Reference Purposes Only us Gadiel Ireland MD IMG CT PROCEDURES Final Result [id number] * CT Body Outside Consult (05/23/2024 8:18 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) Anatomical Region Laterality Modality Body N/A Computed Tomogra phy 05/24/2024 8:05 AM EQUIPMENT OPERATOR Impressions 05/24/2024 8:05 AM EQUIPMENT OPERATOR 1. ??Unchanged thoracoabdominal aortic dissection status [...] images may or may not represent the [place] source data set and thus may contain changes that may lower the accuracy of this second-opinion interpretation. Electronically signed by: Shahrzad Zimmerman M.D. Narrative 05/24/2024 8:05 AM EQUIPMENT OPERATOR EXAMINATION: RADIOLOGY CONSULTATION ON OUTSIDE IMAGING STUDY STUDY INITIALLY PERFORMED: 05/23/2024 at [place]. TYPE OF STUDY: Multiple CT images of [...] IMAGING STUDY STUDY INITIALLY PERFORMED: 05/23/2024 at [place]. TYPE OF STUDY: Multiple CT images of [...] images may or may not represent the [place] source data set and thus may contain changes that may lower the accuracy of this second-opinion interpretation. Electronically signed by: Shahrzad Zimmerman M.D. Gadiel Ireland MD IMG CT PROCEDURES Final Result * POCT glucose (05/23/2024 7:47 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) [facility] Glucose, POC 80 70 - 199 mg/dL Blood 05/23/2024 7:47 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 05/23/2024 7:47 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 Gonzalez Lamar DO LAB POCT ORDERABLES - DE VICE Final Result [facility] [place] [address] * POCT Rapid HIV Antibody Community Screening-[place] Eligible (05/21/2024 7:35 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) [facility] Rapid HIV, POC Negative Negative Lot Number [id number] QC Control Line Acceptable Blood 05/21/2024 7:35 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 Marcus Amaya MD POINT OF CARE TEST ORD ERABLES Final Result * (ABNORMAL) Oxycodone Confirmation, Urine (05/21/2024 5:34 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) [facility] Oxycodone Conf, Ur Confirmed Positive(A) CutOff 50 [...] needed. Performance characteristics were determined by the [facility] in a manner consistent with CLIA requirement and has not been cleared or approved by the U.S. Food and Drug Administration. Current interpretive data was last revised 2020. Urine 05/21/2024 5:34 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 05/21/2024 5:46 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 us Marcus Amaya MD LAB URINE ORDERABLES F inal Result [facility] [place] [address] * (ABNORMAL) Fentanyl Confirmation, Urine (05/21/2024 5:34 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) Fentanyl Conf, Ur Confirmed Positive(A) Cutoff 0.3ng/mL Acetylfentanyl Conf, Ur Does Not Confirm Cutoff 1 ng/mL [facility] Acrylfentanyl Conf, Ur Does Not Confirm Cutoff 1 ng/mL [facility] Furanylfentanyl Conf, Ur Does Not Confirm Cutoff 1 ng/mL [facility] Fentanyl Metabolite (Norfentanyl) Conf, Ur Confirmed Positive(A) [...] needed. Performance characteristics were determined by the [facility] in a manner consistent with CLIA requirement and has not been cleared or approved by the U.S. Food and Drug Administration. Current interpretive data was last revised 2020. Urine 05/21/2024 5:34 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 05/21/2024 5:46 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 Marcus Amaya MD LAB URINE ORDERABLES F inal Result [facility] [place] [address] * (ABNORMAL) Drugs of Abuse Screen, Urine with Reflex Confirmation (05/21/2024 5:34 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) Amphetamine, ur Screen Positive, presumptive (A) [...] Screen Positive, presumptive (A) CutOff 5 ng/mL [facility] Comment: Interpretive Data - Fentanyl: ?? Samples containing greater than 5 ng/mL norfentanyl, fentanyl, or other cross-reacting fentanyl compounds are reported as positive. False positive and false negative results are possible. Confirmatory testing required for definitive results. Current Interpretive Data was last reviewed 2023. Methadone, ur Not Detected CutOff 300ng/mL [facility] Comment: Interpretive Data - Methadone: ??Samples containing greater than 300 ng/mL d,l-methadone or other cross-reacting compounds are reported as positive. ??False positive and false negative results are possible. Confirmatory testing required for definitive results. Current Interpretive Data was last reviewed 2022. Opiates, ur Not Detected CutOff 300ng/mL [facility] Comment: Interpretive Data - Opiates: ??Samples containing greater than 300 ng/mL morphine or other cross-reacting compounds are reported as positive. ??False positive and false negative results are possible. Confirmatory testing required for definitive results. Current Interpretive Data was last reviewed 2022. Oxycodone, ur Screen Positive, presumptive (A) CutOff 100ng/mL [facility] Comment: Interpretive Data - Oxycodone: ??Samples containing greater than 100 ng/mL oxycodone or other cross-reacting compounds are reported as ??positive. ??False positive and false negative results are possible. Confirmatory testing required for definitive results. Current Interpretive Data was last reviewed 2022. Phencyclidine, ur Not Detected CutOff 25 ng/mL [facility] Comment: Interpretive Data - Phencyclidine: ??Samples containing greater than 25 ng/mL phencyclidine or other cross-reacting compounds are reported as positive. ??False positive and false negative results are possible. Confirmatory testing required for definitive results. Current Interpretive Data was last reviewed 2022. Urine Creatinine 357 mg/dL [facility] Comment: Interpretive Data Urine Creatinine: < 10 mg/dL is extremely dilute = or > 10 but < 20 mg/dL is dilute = or > 20 mg/dL is normal Current Interpretive Data was last revised on 2017. Urine 05/21/2024 5:34 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 05/21/2024 5:46 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 Narrative [facility] - 05/21/2024 6:16 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 Drug of Abuse screening is performed by immunoassay for medical purposes only. ??This is not to be used for Pain Management purposes. ??If Detected, confirmation testing will be performed for Amphetamines, Cocaine, Fentanyl, Methadone, Opiates, Oxycodone or Phencyclidine. Marcus Amaya MD LAB URINE ORDERABLES F inal Result [facility] [place] [address] * (ABNORMAL) Urinalysis reflex to microscopic (05/21/2024 5:34 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) Color, ur Yellow Yellow Clarity, ur Clear Clear [facility] Specific gravity, ur 1.032(H) 1.003 - 1.030 [facility] pH, urine 6.0 [facility] Comment: Interpretive Data ? Urine pH is affected by diet, medications, systemic acid-base disturbances, and renal tubular function. ??pH may affect urinary stone formation. ??For example, urine pH below 6.0 may help reduce the tendency for calcium phosphate stones and pH greater than 6.0 may reduce the tendency for uric acid stone formation. Source: [facility] [employer] Current Interpretive Data was last revised on 2017 Protein, ur ql 2+(A) Negative [facility] Glucose, ur ql Negative Negative [facility] Ketones, ur 1+(A) Negative [facility] Bilirubin, ur Negative Negative [facility] Blood, ur Negative Negative [facility] Urobilinogen, ur <2.0 <2.0 mg/dL [facility] Nitrite, ur Negative Negative [facility] Leukocyte esterase, ur Negative Negative [facility] UA reflex comment Reflex to microscopic UA will be performed. [facility] Urine 05/21/2024 5:34 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 05/21/2024 5:39 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 Marcus Amaya MD LAB URINE ORDERABLES F inal Result Performing Organization Address [facility] de Phone Number [facility] Department [place] [address] * Amphetamine Confirmation, Urine (05/21/2024 5:34 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) Amphetamine Conf, Ur Does Not Confirm [...] needed. Performance characteristics were determined by the [facility] in a manner consistent with CLIA requirement and has not been cleared or approved by the U.S. Food and Drug Administration. Current interpretive data was last revised on 2020. Urine 05/21/2024 5:34 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 05/21/2024 5:46 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 Marcus Amaya MD LAB URINE ORDERABLES F inal Result Performing Organization Address [facility] Co de Phone Number [facility] [place] [address] * (ABNORMAL) Urinalysis, microscopic only (05/21/2024 5:34 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) WBC, ur 0-5 0 - 5 /HPF RBC, ur 0-2 0 - 2 /HPF [facility] Epithelial cells, squamous, ur 1-5 0 - 5 /HPF [facility] Bacteria, ur Trace(A) [facility] Mucous, ur Present(A) [facility] Hyaline casts, ur 11-20(A) 0 - 10 /LPF [facility] Urine 05/21/2024 5:34 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 05/21/2024 5:39 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 Marcus Amaya MD LAB URINE ORDERABLES F inal Result Performing Organization Address City/[facility] Hospital/[facility] Co de Phone Number [facility] [place] [address] * Sepsis Lactate w/ Reflex (05/21/2024 4:33 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) Pathologist [facility] Sepsis Lactate 1.9 0.7 - 2.0 mmol/L Blood 05/21/2024 4:33 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 05/21/2024 4:44 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 Marcus Amaya MD LAB BLOOD ORDERABLES F inal Result Performing Organization Address [facility] de Phone Number [facility] [place] [address] * eGFR (05/21/2024 3:41 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) eGFR 70 >=60 mL/min/1. 73 m2 [...] last reviewed 2021. Blood 05/21/2024 3:41 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 05/21/2024 4:03 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 us Chelle Elliott MD LAB BLOOD ORDERABLES Final Result [facility] [place] [address] * (ABNORMAL) Differential, auto (05/21/2024 3:41 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) Neutrophil abs 6.9(H) 1.5 - 6.5 K/cumm Imm gran abs 0.0 0.0 - 0.1 K/cumm [facility] Lymphocyte abs 1.5 0.8 - 3.3 K/cumm [facility] Monocyte abs 0.9(H) 0.2 - 0.8 K/cumm [facility] Eosinophil abs 0.0 0.0 - 0.5 K/cumm [facility] Basophil abs 0.0 0.0 - 0.1 K/cumm [facility] Neutrophil pct 73.5 % [facility] Comment: Interpretive Data Percent cell count reference ranges are not reported, since discordance with absolute values may lead to misinterpretation of CBC data. Current Interpretive Data was last revised on 2017. Imm gran pct 0.3 % [facility] Comment: Interpretive Data Percent cell count reference ranges are not reported, since discordance with absolute values may lead to misinterpretation of CBC data. Current Interpretive Data was last revised on 2017. Lymphocyte pct 15.7 % [facility] Comment: Interpretive Data Percent cell count reference ranges are not reported, since discordance with absolute values may lead to misinterpretation of CBC data. Current Interpretive Data was last revised on 2017. Monocyte pct 10.0 % [facility] Comment: Interpretive Data Percent cell count reference ranges are not reported, since discordance with absolute values may lead to misinterpretation of CBC data. Current Interpretive Data was last revised on 2017. Eosinophil pct 0.1 % [facility] Comment: Interpretive Data Percent cell count reference ranges are not reported, since discordance with absolute values may lead to misinterpretation of CBC data. Current Interpretive Data was last revised on 2017. Basophil pct 0.4 % [facility] Comment: Interpretive Data Percent cell count reference ranges are not reported, since discordance with absolute values may lead to misinterpretation of CBC data. Current Interpretive Data was last revised on 2017. Blood 05/21/2024 3:41 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 05/21/2024 4:06 PM EQUIPMENT OPERATOR Chelle Elliott MD LAB BLOOD ORDERABLES Final Result [facility] [place] [address] * CBC with auto differential (05/21/2024 3:41 PM EQUIPMENT OPERATOR) WBC 9.4 3.8 - 9.9 K/cumm Hgb 13.9 13.0 - 17.5 g/dL [facility] Hct 40.0 38.9 - 50.3 % [facility] Plt 291 150 - 400 K/cumm [facility] MPV 9.1 9.1 - 12.3 fL [facility] RBC 4.59 4.30 - 5.80 M/cumm [facility] MCV 87.1 81.3 - 96.4 fL [facility] MCH 30.3 27.1 - 33.3 pg [facility] MCHC 34.8 32.3 - 35.7 g/dL [facility] RDW CV 13.1 11.1 - 14.9 % [facility] RDW SD 41.8 35.7 - 48.1 fL [facility] NRBC abs 0.00 0.00 - 0.01 K/cumm [facility] Blood (Blood, Venous) 05/21/2024 3:41 PM EQUIPMENT OPERATOR 05/21/2024 4:06 PM EQUIPMENT OPERATOR Marcus Amaya MD LAB BLOOD ORDERABLES F inal Result Performing Organization Address [facility] Co de Phone Number [facility] [place] [address] * Lipase (05/21/2024 3:41 PM EQUIPMENT OPERATOR) [facility] Lipase 15 10 - 99 Units/L Blood (Blood, Venous) 05/21/2024 3:41 PM EQUIPMENT OPERATOR 05/21/2024 4:03 PM EQUIPMENT OPERATOR Marcus Amaya MD LAB BLOOD ORDERABLES F inal Result Performing Organization Address [facility] de Phone Number [facility] [place] [address] * (ABNORMAL) Comprehensive metabolic panel (05/21/2024 3:41 PM EQUIPMENT OPERATOR) [facility] Sodium 136 135 - 145 mmol/L Potassium, pl 3.6 3.3 - 4.9 mmol/L [facility] Chloride 99 97 - 110 mmol/L [facility] CO2 22 22 - 32 mmol/L [facility] Anion gap 15 2 - 15 mmol/L [facility] BUN 22 6 - 25 mg/dL [facility] Creatinine 1.37(H) 0.80 - 1.30 mg/dL [facility] Glucose 92 70 - 199 mg/dL [facility] Comment: Interpretive Data Fasting glucose >/= 126 [...] total 1.5(H) 0.1 - 1.2 mg/dL [facility] Protein, pl 8.5 6.5 - 8.5 g/dL [facility] Albumin 5.1(H) 3.5 - 5.0 g/dL [facility] Alk phos 99 40 - 130 Units/L [facility] ALT 19 7 - 55 Units/L [facility] AST 21 10 - 50 Units/L [facility] Blood 05/21/2024 3:41 PM EQUIPMENT OPERATOR 05/21/2024 4:03 PM EQUIPMENT OPERATOR us Marcus Amaya MD LAB BLOOD ORDERABLES F inal Result [facility] [place] [address] * ECG 12-LEAD (05/21/2024 2:24 PM EQUIPMENT OPERATOR) Narrative [facility] - 05/21/2024 2:24 PM EQUIPMENT OPERATOR Huy Mack MD ? 05/21/2024 ??2:27 [...] in the ED Huy Mack MD 05/21/24 1426 Marcus Amaya MD ECG ORDERABLES Final Result Performing Organization Address City/State/[facility] Co de Phone Number [facility] * ECG 12-LEAD (05/19/2024 11:55 PM EQUIPMENT OPERATOR) Narrative [facility] - 05/19/2024 11:55 PM EQUIPMENT OPERATOR Deinz Huitron MD ? 05/19/2024 11:56 PM ECG [...] PA Lateral 2 Views (05/19/2024 10:34 PM EQUIPMENT OPERATOR) Anatomical Region Laterality Modality Body, Chest N/A Computed Radiogr aphy 05/19/2024 10:4 3 PM EQUIPMENT OPERATOR Impressions 05/20/2024 9:03 AM EQUIPMENT OPERATOR Comparison is made to 07/05/2023. Thoracic [...] Collins Wills M.D. Narrative 05/20/2024 9:03 AM EQUIPMENT OPERATOR EXAMINATION: 2 view chest radiograph Procedure [...] CTA Chest Abdomen Pelvis (05/19/2024 10:20 PM EQUIPMENT OPERATOR) Anatomical Region Laterality Modality Body N/A Computed Tomogra phy 05/19/2024 10:5 1 PM EQUIPMENT OPERATOR Impressions 05/20/2024 9:06 AM EQUIPMENT OPERATOR 1. ??Unchanged thoracoabdominal aortic dissection status [...] Collins Wills M.D. Narrative 05/20/2024 9:06 AM EQUIPMENT OPERATOR EXAMINATION: ??CT ANGIOGRAPHY OF THE CHEST, [...] (baseline, 2hr, 4hr, 6hr) (05/19/2024 9:12 PM EQUIPMENT OPERATOR) Pathologist [facility] Trop I hs 4 <=35 ng/L Comment: Interpretive Data For [facility] resources including the diagnostic algorithm and an aid in interpretation, copy and paste this link: [email or web address] Current Interpretive Data last revised 2019. Blood 05/19/2024 9:12 PM EQUIPMENT OPERATOR 05/19/2024 9:28 PM EQUIPMENT OPERATOR us Cristobal Waldrop MD LAB BLOOD ORDERABLE S Final Result [facility] [place] [address] * eGFR (05/19/2024 9:12 PM EQUIPMENT OPERATOR) [facility] eGFR 85 >=60 mL/min/1. 73 m2 Comment: [...] last reviewed 2021. Blood 05/19/2024 9:12 PM EQUIPMENT OPERATOR 05/19/2024 9:28 PM EQUIPMENT OPERATOR Cristobal Waldrop MD LAB BLOOD ORDERABLE S Final Result [facility] [place] [address] * (ABNORMAL) Differential, auto (05/19/2024 9:12 PM EQUIPMENT OPERATOR) Neutrophil abs 7.6(H) 1.5 - 6.5 K/cumm Imm gran abs 0.1 0.0 - 0.1 K/cumm [facility] Lymphocyte abs 0.9 0.8 - 3.3 K/cumm [facility] Monocyte abs 0.5 0.2 - 0.8 K/cumm [facility] Eosinophil abs 0.0 0.0 - 0.5 K/cumm [facility] Basophil abs 0.0 0.0 - 0.1 K/cumm [facility] Neutrophil pct 84.3 % [facility] Comment: Interpretive Data Percent cell count reference ranges are not reported, since discordance with absolute values may lead to misinterpretation of CBC data. Current Interpretive Data was last revised on 2017. Imm gran pct 0.7 % [facility] Comment: Interpretive Data Percent cell count reference ranges are not reported, since discordance with absolute values may lead to misinterpretation of CBC data. Current Interpretive Data was last revised on 2017. Lymphocyte pct 9.4 % [facility] Comment: Interpretive Data Percent cell count reference ranges are not reported, since discordance with absolute values may lead to misinterpretation of CBC data. Current Interpretive Data was last revised on 2017. Monocyte pct 5.3 % [facility] Comment: Interpretive Data Percent cell count reference ranges are not reported, since discordance with absolute values may lead to misinterpretation of CBC data. Current Interpretive Data was last revised on 2017. Eosinophil pct 0.1 % [facility] Comment: Interpretive Data Percent cell count reference ranges are not reported, since discordance with absolute values may lead to misinterpretation of CBC data. Current Interpretive Data was last revised on 2017. Basophil pct 0.2 % [facility] Comment: Interpretive Data Percent cell count reference ranges are not reported, since discordance with absolute values may lead to misinterpretation of CBC data. Current Interpretive Data was last revised on 2017. Blood 05/19/2024 9:12 PM EQUIPMENT OPERATOR 05/19/2024 9:28 PM EQUIPMENT OPERATOR Cristobal Waldrop MD LAB BLOOD ORDERABLE S Final Result [facility] [place] [address] * CBC with auto differential (05/19/2024 9:12 PM EQUIPMENT OPERATOR) WBC 9.0 3.8 - 9.9 K/cumm Hgb 13.7 13.0 - 17.5 g/dL [facility] Hct 39.7 38.9 - 50.3 % [facility] Plt 293 150 - 400 K/cumm [facility] MPV 9.2 9.1 - 12.3 fL [facility] RBC 4.53 4.30 - 5.80 M/cumm [facility] MCV 87.6 81.3 - 96.4 fL [facility] MCH 30.2 27.1 - 33.3 pg [facility] MCHC 34.5 32.3 - 35.7 g/dL [facility] RDW CV 13.2 11.1 - 14.9 % [facility] RDW SD 42.5 35.7 - 48.1 fL [facility] NRBC abs 0.00 0.00 - 0.01 K/cumm [facility] Blood 05/19/2024 9:12 PM EQUIPMENT OPERATOR 05/19/2024 9:28 PM EQUIPMENT OPERATOR us Cristobal Waldrop MD LAB BLOOD ORDERABLE S Final Result Performing Organization Address [facility] de Phone Number [facility] [address] * aPTT (05/19/2024 9:12 PM EQUIPMENT OPERATOR) aPTT 34 28 - 38 sec Comment: Interpretive Data Heparin therapeutic range: 66.0 - 100.0 seconds. Range based on correlation with therapeutic heparin activity range of 0.3 - 0.7 Units/mL. Current interpretive data was last revised on 2023. Blood 05/19/2024 9:12 PM EQUIPMENT OPERATOR 05/19/2024 9:32 PM EQUIPMENT OPERATOR Cristobal Waldrop MD LAB BLOOD ORDERABLE S Final Result Performing Organization Address [facility] de Phone Number [facility] [facility] [place] [address] * (ABNORMAL) Protime-INR (05/19/2024 9:12 PM EQUIPMENT OPERATOR) PT 14.2(H) 9.7 - 13.0 sec INR 1.31(H) 0.90 - 1.20 [facility] Comment: Interpretive data Oral anticoagulant therapeutic ranges: Venous thromboembolism prophylaxis or treatment: 2.0-3.0 CARDIOLOGY Standard range: 2.0-3.0 High-intensity range: 2.5-3.5 Refer to indication-specific guidelines for appropriate target ranges for prosthetic heart valve replacement. Current interpretive data was last revised on 2019. Blood 05/19/2024 9:12 PM EQUIPMENT OPERATOR 05/19/2024 9:32 PM EQUIPMENT OPERATOR Cristoabl Waldrop MD LAB BLOOD ORDERABLE S Final Result Performing Organization Address [facility] de Phone Number JAIRON [facility]WINFre[facility] [address] * Type and screen (05/19/2024 9:12 PM EQUIPMENT OPERATOR) Ellen, indirect Negative ABO Rh A Positive [facility] Blood 05/19/2024 9:12 PM EQUIPMENT OPERATOR 05/19/2024 9:22 PM EQUIPMENT OPERATOR Narrative [facility] - 05/19/2024 10:07 PM EQUIPMENT OPERATOR Has the patient had Daratumumab or Isatuximab in the past 6 months?->Unknown Cristobal Waldrop MD LAB BLOOD BANK TEST ORDERABLES Final Result [facility] [place] [address] * (ABNORMAL) Comprehensive metabolic panel (05/19/2024 9:12 PM EQUIPMENT OPERATOR) Pathologist [facility] Sodium 139 135 - 145 mmol/L Potassium, pl 3.9 3.3 - 4.9 mmol/L [facility] Chloride 100 97 - 110 mmol/L [facility] CO2 21(L) 22 - 32 mmol/L [facility] Anion gap 18(H) 2 - 15 mmol/L [facility] BUN 18 6 - 25 mg/dL [facility] Creatinine 1.17 0.80 - 1.30 mg/dL [facility] Glucose 108 70 - 199 mg/dL [facility] Comment: Interpretive Data Fasting glucose >/= 126 [...] 2022. Calcium 10.2 8.5 - 10.3 mg/dL [facility] Bilirubin, total 1.2 0.1 - 1.2 mg/dL [facility] Protein, pl 8.7(H) 6.5 - 8.5 g/dL [facility] Albumin 5.1(H) 3.5 - 5.0 g/dL [facility] Alk phos 105 40 - 130 Units/L [facility] ALT 23 7 - 55 Units/L [facility] AST 18 10 - 50 Units/L [facility] Blood 05/19/2024 9:12 PM EQUIPMENT OPERATOR 05/19/2024 9:28 PM EQUIPMENT OPERATOR us Cristobal Waldrop MD LAB BLOOD ORDERABLE S Final Result [facility] One [facility] [place] [address] * POC ISTAT (03/07/2024 12:09 PM CDT) Creatinine, POC, bld 1.1 0.6 - 1.3 mg/dL POC Device Number [id number] [facility] POC Performer [id number] [facility] Blood 03/07/2024 12:0 9 PM CDT 03/07/2024 12:09 PM CDT us Leo Manzano MD LAB BLOOD ORDERABLES Final Result [facility] [address] [place] [address] * CTA Chest Abdomen Pelvis (03/07/2024 12:05 [...] sult * Imaging SI Joint Injection Bilateral ([id number]) (02/28/2024 11:27 AM CDT) Narrative [facility] - 02/28/2024 11:28 AM CDT The images from this study are not interpreted by Radiology. ??Please refer to the physician's procedure / OR operative note. us Adrianne Adams MD PhD IMG PAIN MGMT PROCEDURE S Final Result Performing Organization Address City/[facility]/ZIP Co de Phone Number [facility] * Hepatitis C antibody Blood (09/06/2023 11:15 AM CDT) Hep C Ab Nonreactive Nonreactive Comment:Antibodies to HCV no t detected. Does NOT exclude the possibility of recent exposure to HCV. Current interpretive data was last revised on 22 Blood 09/06/2023 11:1 5 AM CDT 09/06/2023 11:34 AM CDT Clyde Nelson MD LAB MICROBIOLOGY - GENERAL CRAGFORDLilian LOPEZ Edited Result - Final [facility] [place] [address] from Last 3 Months or Most Recently Relevant to Health Maintenance Insurance [employer] [facility] [employer] [facility] Advance Directives For more information, please contact: [phone] * Full Code (Latest Code Status on [...] Blankenship Mother Health Care Agent Care Teams Healthcare Facility Administrator Relationship Specialty Start Date End Date Carl Strickland MD [address] [place] [address] [address] [place] [address] PCP - General Internal Medicine 06/06/23 Leo Manzano MD [address] [place] [address] Surgeon Vascular Surgery 05/16/23
--- OUTSIDE RECORDS SUMMARY | 2024-05-30 06:26 | XMS_ITS | Encounter Summary ---
Author Organization [facility] Healthcare Address [address] [place] [address] Care Team Providers Care Customer Training Specialist Name Role Phone Leo Manzano MD Unavailable [phone] Carl Strickland MD Primary Care Provider Reason for Referral * MRI/CAT/PET Scan (Routine) - Closed Specialty Diagnoses / Procedures Referred By Contac t Referred To Contact Radiology Diagnoses Dissection of thoracoabdominal aorta (CMS/HCC) (HCC) Procedures CTA Chest Abdomen Pelvis Leo Manzano MD [address] [place] [address] Phone: tel: fax: [address] [address] Referral ID Status Reason Start Date Expiration Date Visits Re quested Visits Authorized [id number] Closed 01/27/2024 03/27/2024 1 1 Reason for Visit * MRI/CAT/PET Scan (Routine) - Closed Specialty Diagnoses / Procedures Referred By Contac t Referred To Contact Radiology Diagnoses Dissection of thoracoabdominal aorta (CMS/HCC) (HCC) Procedures CTA Chest Abdomen Pelvis Leo Manzano MD [address] [place] [address] Phone: tel: fax: [facility] [place] [phone] Referral ID Status Reason Start Date Expiration Date Visits Re quested Visits Authorized [id number] Closed 01/27/2024 03/27/2024 1 1 Encounter Details Date Type Department Care Team (Latest Contact Info) Description 03/07/2024 11:53 AM CDT - 03/07/2024 11:59 PM CDT Hospital Encounter [facility] [id number] [address] Dissection of thoracoabdominal aorta (CMS/HCC) (HCC) Discharge Disposition: Discharge to home or self care Social History Tobacco Use Types Packs/Day Years Used Date Smoking Tobacco: Never Smokeless Tobacco: Never Alcohol Use Standard Drinks/Week Comments Not Currently 0 (1 standard drink = 0.6 oz pur e alcohol) [facility] Utilities Answer Date Recorded In the past 12 months has [employer] electric, gas, oil, or water [employer] threatened to shut off services in your home? Patient declined 10/02/2023 Social Connection and Isolation Panel [NHANES] A nswer Date Recorded In a typical week, how many times do you talk on the phone with family, friends, or neighbors? Patient declined 10/02/2023 How often do you get togethe r with friends or relatives? Patient declined 10/02/2023 How often do you attend tenriism or zoroastrianism serv ices? 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 CAR PARKER Gender Identity Not on file Sexual Orientation Straight 06/12/2023 11 :43 PM CAR PARKER documented as of this encounter Medications at [...] Chronic Care Management No change(05/16 2:51 PM CAR PARKER) No Rita Landa, RN Note: Problem: Chronic [...] 0.6 - 1.3 mg/dL POC Device Number [id number] JAIR[facility] REDDYCH POC Performer [id number] JAIRON ERWINWCH Blood 03/07/2024 12:0 9 PM CDT 03/07/2024 12:09 PM CDT Leo Manzano MD LAB BLOOD ORDERABLES Final Result JAIRON ERWINCH [address] [facility]. [place] [address] * CTA Chest Abdomen Pelvis (03/07/2024 12:05 [...] Ag Davila M.D., Ph.D Leo Manzano MD [facility] PROCEDURES Final Re sult documented in [...] 03/07/2024 documented in this encounter Care Teams Customer Training Specialist Relationship Specialty Start Date End Date Carl Strickland MD [address] [facility] 1 [place] [address] PCP - General Internal Medicine 06/06/23 Leo Manzano MD [address] [place] [address] Surgeon Vascular Surgery 05/16/23 documented as of this encounter
--- OUTSIDE RECORDS SUMMARY | 2024-05-30 06:26 | XMS_ITS | Encounter Summary ---
Author Organization [facility] Address [address] [facility] [address] [place] [address] Phone Care Team Providers Care Manager International Name Role Phone Leo Manzano MD Unavailable [phone] Carl Strickland MD Primary Care Provider Reason for Visit * Reason Comments Return Patient * Consultation (Routine) - Authorized Specialty Diagnoses / Procedures Referred By Fernando alan Referred To Contact Vascular Surgery Diagnoses Dissection of abdominal aorta (CMS/HCC) (HCC) Aftercare following surgery of the circulatory system Carl Strickland MD [address] [facility] 1 [place] [address] Phone: tel: fax: Leo Manzano MD [address] [facility] [address] [place] [address] Phone: tel: fax: Referral ID Status Reason Start Date Expiration Date Visits Requested Visits Authorized [id number] Authorized Specialty Services Required 06/07/2023 07/06/2024 12 12 Encounter Details Date Type Department Care Team (Late st Contact Info) Description 03/07/2024 3:00 PM CDT Office Visit [facility] Vascular Surgery [address] [place] [address] Medical Office Building [address] [place] [address] Leo Manzano MD [address] [place] [address] Dissection of abdominal aorta (CMS/HCC) (HCC); Aftercare following surgery of the circulatory system Social History Tobacco Use Types Packs/Day Years Used Date Smoking Tobacco: Never Smokeless Tobacco: Never Tobacco Cessation:Counseling Given: Not Answered Alcohol Use Standard Drinks/Week Comments Not Currently 0 (1 standard drink = 0.6 oz pur e alcohol) [facility] Utilities Answer Date Recorded In the past 12 months has [employer], gas, oil, or water [employer] threatened to shut off services in your home? Patient declined 10/02/2023 Social Connection and Isolation Panel [NHANES] A nswer Date Recorded In a typical week, how many times do you talk on the phone with family, friends, or neighbors? Patient declined 10/02/2023 How often do you get togethe r with friends or relatives? Patient declined 10/02/2023 How often do you attend jain or alevism serv ices? Patient declined 10/02/2023 Do you belong to any clubs o r organizations such as jain groups, unions, fraternal or athletic groups, or [...] on file Legal Sex Male 3:42 AM CUSTOMS BROKERAGE AGENT Gender Identity Not on file Sexual Orientation Straight 06/12/2023 11 :43 PM CUSTOMS BROKERAGE AGENT documented as of this encounter Last Filed [...] Chronic Care Management No change(05/16 2:51 PM CUSTOMS BROKERAGE AGENT) No Rita Landa, BRIA Note: Problem: Chronic [...] 03/07/20 documented in this encounter Care Teams Manager International Relationship Specialty Start Date End Date Carl Strickland MD [address] [facility] 1 [place] [address] PCP - General Internal Medicine 06/06/23 Leo Manzano MD [address] [place] [address] Surgeon Vascular Surgery 05/16/23 documented as of this encounter
--- OUTSIDE RECORDS SUMMARY | 2024-05-30 06:26 | XMS_ITS | Encounter Summary ---
Author Organization [facility] Address [address] [place] [address] Phone Care Team Providers Care National Sales Executive Name Role Phone Leo Manzano MD Unavailable [phone] Carl Strickland MD Primary Care Provider Encounter Details Date Type Department Care Team (Late st Contact Info) Description 04/24/2024 Orders Only [facility] Nephrology [address] [facility] Advanced Medicine 5th [place] [address] [place] [address] Miguel Dominguez MD [address] [facility] [address] [place] [address] ANGI (acute kidney injury) (HCC) (Primary Dx); Primary hypertension; Anemia, unspecified type; Screening for hematuria or proteinuria Social History Tobacco Use Types Packs/Day Years Used Date Smoking Tobacco: Never Smokeless Tobacco: Never Alcohol Use Standard Drinks/Week Comments Not Currently 0 (1 standard drink = 0.6 oz pur e alcohol) [facility] Utilities Answer Date Recorded In the [...] How often do you attend taoism or taoist serv ices? 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 Gender Identity Not on file Sexual Orientation Straight 06/12/2023 11 :43 PM FORCE ADJUSTMENT SUPERVISOR documented as of this encounter Plan of Treatment Scheduled Orders Name Type Priority Associated Diagnoses Orde r Schedule CBC with auto differential Lab Routine ANGI (acute kidney injury) ([facility]) Primary hypertension Anemia, unspecified type Screening for hematuria or proteinuria Expected: 04/24/2024, Expires: 04/24/2025 Renal function panel Lab Routine ANGI (acute kidney injury) ([facility]) Primary hypertension Anemia, unspecified type Screening for hematuria or proteinuria Expected: 04/24/2024, Expires: 04/24/2025 Urinalysis reflex to microscopic and culture Urine, clean voided Microbiology Routine ANGI (acute kidney injury) ([facility]) Primary hypertension Anemia, unspecified type Screening for hematuria or proteinuria Expected: 04/24/2024, Expires: 04/24/2025 documented as of this encounter Goals Goal Patient Goal Type Associated Problems Recent Progress Patient-Stated? Author CCM Chronic Pain Care Plan Chronic Care Management No change(05/16 2:51 PM FORCE ADJUSTMENT SUPERVISOR) Rita Sarmiento, RN Note: Problem: Chronic Pain Goals: 1. Minimize further functional decline 2. Maximize quality of life 3. Control pain Strategies: - Activity/exercise program recommendation - Conservative stepwise pain medicine strategy with multi-disciplinary approach - Recommend healthy lifestyle strategies and compensatory methods as needed documented as of this encounter Visit Diagnoses Diagnosis ANGI (acute kidney injury) ([facility])- Primary Primary hypertension Unspecified essential hypertension Anemia, unspecified type Screening for hematuria or proteinuria Screening for unspecified condition documented in this encounter Care Teams National Sales Executive Relationship Specialty Start Date End Date Carl Strickland MD [address] [facility] [place] [address] [place] [address] PCP - General Internal Medicine 06/06/23 Leo Manzano MD [address] [facility] [address] [place] [address] Surgeon Vascular Surgery 05/16/23 documented as of this encounter
--- OUTSIDE RECORDS SUMMARY | 2024-05-30 06:27 | XMS_ITS | Encounter Summary ---
Author Organization [facility] Address [address] [place] [address] Phone Care Team Providers Care Caterpillar Operator Name Role Phone Leo Manzano MD Unavailable [phone] Carl Strickland MD Primary Care Provider Encounter Details Date Type Department Care Team (Late st Contact Info) Description 11/28/2023 12:30 PM CDT Office Visit [facility] Cardiology [address] [facility] Advanced Medicine 8th [place] [address] [place] [address] Joaquín Abarca MD [address] [facility] [address] [place], [place] [id number] 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HCC) (Primary [...] declined 10/02/2023 How often do you attend mormonism or jew serv ices? 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 Abarca directly at [phone]. documented in this encounter Miscellaneous Notes * [...] Chronic Care Management No change(05/16 2:51 PM PHP SOFTWARE ENGINEER) No Rita Landa, BRIA Note: Problem: Chronic [...] 11/28/2023 documented in this encounter Care Teams Caterpillar Operator Relationship Specialty Start Date End Date Carl Strickland MD [address] [facility] 1 [place] [address] PCP - General Internal Medicine 06/06/23 Leo Manzano MD [address] [facility] [address] [place] [address] Surgeon Vascular Surgery 05/16/23 documented as of this encounter
--- OUTSIDE RECORDS SUMMARY | 2024-05-30 06:27 | XMS_ITS | Encounter Summary ---
Author Organization [facility] Address [address] [place] [address] Phone Care Team Providers Care Cork Wirer Name Role Phone Leo Manzano MD Unavailable [phone] Carl Strickland MD Primary Care Provider Encounter Details Date Type Department Care Team (Late st Contact Info) Description 01/02/2024 Telephone [facility] Cardiology [address] [facility] Advanced Medicine 8th [place] [address] [place] [address] Joaquín Abarca MD [address] [facility] [address] [place] [address] Social History Tobacco Use Types Packs/Day Years Used Date Smoking Tobacco: Never Smokeless Tobacco: Never Alcohol Use Standard Drinks/Week Comments Not Currently 0 (1 standard drink = 0.6 oz pur e alcohol) [facility] Utilities Answer Date Recorded In the past 12 months has [employer] electric, gas, oil, or water company threatened [...] How often do you attend quaker or judaism serv ices? 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 Minimize further functional decline 2. Maximize quality of life 3. Control pain Strategies: - Activity/exercise program recommendation - Conservative stepwise pain medicine strategy with multi-disciplinary approach - Recommend healthy lifestyle strategies and compensatory methods as needed documented as of this encounter Visit Diagnoses Not on filedocumented in this encounter Care Teams Cork Wirer Relationship Specialty Start Date End Date Carl Strickland MD [address] [place] [id number] PCP - General Internal Medicine 06/06/23 Leo Manzano MD [address] [place] [address] Surgeon Vascular Surgery 05/16/23 documented as of this encounter
--- OUTSIDE RECORDS SUMMARY | 2024-05-30 06:27 | XMS_ITS | Encounter Summary ---
Author Organization [facility] Address [address] [place] [address] Phone Care Team Providers Care Virtual Reality Specialist Name Role Phone Leo Manzano MD Unavailable [phone] Carl Strickland MD Primary Care Provider Reason for Visit * Reason Onset Date Comments lipid profile 01/02/2024 Encounter Details Date Type Department Care Team (Late st Contact Info) Description 01/02/2024 Telephone [facility] Cardiology [address] [facility] Medicine 8th [place] [address] [place] [address] Joaquín Abarca MD [address] [facility] [address] [place] [address] lipid profile Social History Tobacco Use Types Packs/Day Years Used Date Smoking Tobacco: Never Smokeless Tobacco: Never Alcohol Use Standard Drinks/Week Comments Not Currently 0 (1 standard drink = 0.6 oz pur e alcohol) [facility] Utilities Answer Date Recorded In the [...] declined 10/02/2023 How often do you attend uatsdin or yarsani serv ices? 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 Gender Identity Not on file Sexual Orientation Straight 06/12/2023 11 :43 PM HOSTLER HELPER documented as of this encounter Miscellaneous Notes [...] Chronic Care Management No change(05/16 2:51 PM HOSTLER HELPER) No Rita Landa RN Note: Problem: Chronic [...] hypercholesterolemia documented in this encounter Care Teams Virtual Reality Specialist Relationship Specialty Start Date End Date Carl Strickland MD [address] [facility] 1 [place] [address] PCP - General Internal Medicine 06/06/23 Leo Manzano MD [address] [facility] [address] [place] [address] Surgeon Vascular Surgery 05/16/23 documented as of this encounter
--- OUTSIDE RECORDS SUMMARY | 2024-05-30 06:27 | XMS_ITS | Encounter Summary ---
Author Organization [facility] Healthcare Address [address] [place] [address] Care Team Providers Care Executive Vice President Business Development Name Role Phone Leo Manzano MD Unavailable [phone] Carl Strickland MD Primary Care Provider Reason for Visit * Reason Comments Post-op Problem Blood in Urine * Auth/Cert (Routine) Specialty Diagnoses / Procedures Referred By Contac t Referred To Contact Diagnoses Pyelonephritis Procedures NA Referral ID Status Reason Start Date Expiration Date Visits Re quested Visits Authorized [id number] 1 1 Encounter Details Date Type Department Care Team (Late st Contact Info) Description 10/02/2023 12:12 PM CDT - 10/04/2023 2:15 PM CDT Hospital Encounter [address] [id number] Mellisa Woo MD [address] [place] [address] Loyda Hernandez MD [address] [place] [id number] Angelica Harry MD [address] [place] [address] Radha Dixon MD [address] [place] [address] Doron Boudreaux MD [address] [place] [address] Kim Patel MD [address] [place] [address] Pyelonephritis [N12] (Primary Dx); Hypokalemia [E87.6]; ANGI (acute kidney injury) (HCC) [N17.9]; Syncope, unspecified syncope type [R55]; Dissection of aorta, unspecified portion of aorta (HCC) [I71.00]; Primary hypertension [I10]; Weight loss [R63.4]; ANGI (acute kidney injury) ([facility]) Discharge Disposition: Discharge to home or self care Social History Tobacco Use Types Packs/Day Years Used Date Smoking Tobacco: Never Smokeless Tobacco: Never Alcohol Use Standard Drinks/Week Comments Not Currently 0 (1 standard drink = 0.6 oz pur e alcohol) [facility] Utilities Answer Date Recorded In the past 12 months has [employer], gas, oil, or water [employer] threatened to shut off services in your home? Patient declined 10/02/2023 Social Connection and Isolation Panel [NHANES] A nswer Date Recorded In a typical week, how many times do you talk on the phone with family, friends, or neighbors? Patient declined 10/02/2023 How often do you get togethe r with friends or relatives? Patient declined 10/02/2023 How often do you attend jehovah's witness or caodaism serv ices? Patient declined 10/02/2023 Do you belong to any clubs o r organizations such as jehovah's witness groups, unions, fraternal or athletic groups, or [...] a fdc (including now)? Patient declined 10/02/2023 Personal Safety Answer Date Recorded Have you ever been in or are you currently in a harmful physical or emotional relationship or is someone making you feel afraid or unsafe? Denies 10/04/2023 Sex and Gender Information Value Date Recorded Sex Assigned at Not on file Legal Sex Male 3:42 AM CALL OR CONTACT CENTRE TEAM LEADER Gender Identity Not on file Sexual Orientation Straight 06/12/2023 11 :43 PM CALL OR CONTACT CENTRE TEAM LEADER documented as of this encounter Last Filed [...] Patient Age - 33 yrs Patient - [id number] [facility] - [id number] Document Creation Date: 10/04/2023 Admitting Provider, MD: Otoniel Landa MD Discharge Provider, MD: No att. providers found Primary Care Physician at Discharge: Carl Strickland MD [phone] Admission Date: 10/02/2023 Discharge Date/time: 10/04/2023 Admission Location: [facility] Hospital LOS - LOS: 2 days [...] PCP Dr. Torres office will call to [facility] uro follow up Discharge Details Physical [...] Your Medications These medications were sent to [facility]/pharmacy #[id number] - [place], [place] - [address], [facility] [address] cefdinir 300 mg capsule HYDROcodone-acetaminophen 5-325 mg [...] Time Provider Department Center 10/07/2023 9:00 AM [facility] [id number] BJN US [facility] Main IMG 10/07/2023 10:00 AM Marcus Gamboa MD URO CAM 11C [facility] 10/14/2023 10:20 AM Marcus Gamboa MD URO CAM 11C [place] 11/14/2023 1:30 PM Amanda Macias MD CAM PAIN [facility] CAM 11/23/2023 3:30 PM Joaquín Abarca MD CAR CAM 8B Cardiology 02/15/2024 12:00 PM [facility] WCHCT2 [facility] CT BJWCHMainIMG 02/15/2024 1:00 PM Leo Manzano MD [facility] [id number] Please schedule an appointment with the following provider(s): No follow-up provider specified. ANCILLARY INFORMATION Other Procedures & Diagnostic Tests: Transthoracic Echo (TTE) Complete W Doppler/CF Result Date: 10/03/2023 [facility] [place] [address] ECHOCARDIOGRAM Patient Name: WILLEMERIBERTO I : 1990 Study Date: 10/03/2023 2:55:30 PM Gender: M Tech: Location: [id number] Ref Provider: RADHA DIXON Height(Cm): 175 BSA: [...] hypertrophy. Electronically Signed By: Deandre Meza MD, [facility] 2023-10-03 16:50:[address] Abdomen Pelvis W [...] 15 27* CREATININE mg/dL 1.56* 1.15 1.70* RHI-BOS-TIUVFCP mL/min/1.73 m2 61 87 55* GLUCOSE mg/dL [...] GLUCOSE 93 10/02/2023 Implant: Implants Graft [employer] Stent Graft Aortic Covered Tag [id number] Eptfe Nitinol [id number] - [id number] - [id number] - Implanted Aorta Inventory item: [employer] Stent Graft Aortic Covered Tag [id number] Eptfe Nitinol [id number] Model/Cat number: [id number] Serial number: [id number] Pest Control Service Representative: [employer] Device identifier: [id number] Device identifier type: GS1 As of 05/02/2023 Status: Implanted Stent [employer] Stent Graft Thoracic Side Branch Tag [id number] Eptfe Nitinol [id number] - [id number] - [id number] - Implanted (Left) Subclavian Inventory item: [employer] Stent Graft Thoracic Side Branch Tag [id number] Eptfe Nitinol [id number] Model/Cat number: [id number] Serial number: [id number] Pest Control Service Representative: [employer] Size: 16mm side branch Device identifier: [id number] Device identifier type: GS1 As of 05/02/2023 Status: Implanted [employer] Graft Stent Weskan Tag L20cm Od37mm Thoracic Active Control [id number] - [id number] - Implanted Descending Thoracic Aorta Inventory item: [employer] Graft Stent Weskan Tag L20cm Od37mm Thoracic Active Control [id number] Model/Cat number: [id number] Serial number: [id number] Pest Control Service Representative: [employer] Device identifier: [id number] Device identifier type: GS1 As of 06/05/2023 Status: Implanted [employer] Zenith 36mm 20-30mm 16mm 180mm 9 Dissection Introducer Sheath [id number] - [id number] Implanted Descending Thoracic Aorta Inventory item: [employer] ZENITH 36MM 20-30MM 16MM 180MM 9 DISSECTION INTRODUCER SHEATH [id number] Model/Cat number: [id number] Pest Control Service Representative: [facility]. Lot number: [id number] Device identifier: [id number] Device identifier type: GS1 As of 06/05/2023 Status: Implanted Vascular Closure Device [employer] Device Clsr Perclose Prostyle Sut-Mediatd Closure-Repair Sys 83083-93 - [id number] Implanted (Left) Common Femoral Artery Inventory item: [employer] CLSR PERCLOSE PROSTYLE SUT-MEDIATD CLOSURE-REPAIR SYS 98957-41 Model/Cat number: [id number] Pest Control Service Representative: [employer] Lot number: [id number] Device identifier: [id number] Device identifier type: GS1 As of 05/02/2023 Status: Implanted Type Not Specified [employer] Device Clsr Perclose Prostyle Sut-Mediatd Closure-Repair Sys 91238-80 - [id number] Implanted (Left) Groin Inventory item: [employer] CLSR PERCLOSE PROSTYLE SUT-MEDIATD CLOSURE-REPAIR SYS 85609-48 Model/Cat number: [id number] Pest Control Service Representative: [employer] Lot number: [id number] Device identifier: [id number] Device identifier type: GS1 As of 06/05/2023 Status: Implanted [employer] Device Clsr Perclose Prostyle Sut-Mediatd Closure-Repair Sys 46306-79 - [id number] Implanted (Left) Groin Inventory item: [employer] CLSR PERCLOSE PROSTYLE SUT-MEDIATD CLOSURE-REPAIR SYS 20598-53 Model/Cat number: [id number] Pest Control Service Representative: [employer] Lot number: [id number] Device identifier: [id number] Device identifier type: GS1 As of 06/05/2023 Status: Implanted [place] [employer] Ben Contour 6fr 26cm Large Inner Lumen Low Profile Bladder Ag Taper Latex [id number] - [id number] - Implanted (Right) Ureter Inventory item: [employer] Contour 6fr 26cm Large Inner Lumen Low Profile Bladder Ag Taper Latex Free 180-223 Model/Cat number: [id number] Pest Control Service Representative: [employer] Lot number: [id number] As of 09/27/2023 Status: Implanted [place] [employer] Ben Contour 6fr 26cm Large Inner Lumen Low Profile Bladder Ag Taper Latex [id number] - [id number] - Implanted (Right) Ureter Inventory item: [employer] Contour 6fr 26cm Large Inner Lumen Low Profile Bladder Ag Taper Latex Free 180-223 Model/Cat number: [id number] Pest Control Service Representative: [address] Lot number: [id number] As of 10/04/2023 Status: Implanted General Precautions (If Blank, None Found): Isolation Status: No active isolations Nutritional Status and in-house recommendations: Dietary Orders (From admission, onward) Start Ordered 10/04/23826 Adult Diet Regular Diet effective now Question: ([facility]) Diet type Answer: Regular 10/04/23826 Anticoagulation Indication: [...] Landa MD - 10/04/2023 6:34 AM CDT [facility] Urology Progress Note Assessment & Plan: Eriberto [...] Patel MD - 10/04/2023 12:58 AM CDT Director Mortgage PN Patient with fever overnight- T 102.7 [...] Also noted type B aortic dissection at [facility] April 2023, TEVAR. Objective Past Medical [...] mg/dL 15 27* CREATININE mg/dL 1.15 1.70* IHL-GJQ-IOUTGOA mL/min/1.73 m2 87 55* CALCIUM mg/dL 8.4* [...] 04/2023, 05/2022, 06/2022 and 08/2022 admissions at [facility]. April admission noted 236lb with fluid [...] obvious between folds of skin Muscle Loss [place] - Temporalis Muscle: Can see/feel well-defined [...] Age: 33 y.o. male Admit: 10/02/2023 Bed: [id number]/[id number] Subjective Chief complaint: pyelo Interval History: ongoing [...] but not limited to: Enterococcus endocarditis or SUPPLY CLERK infection) 2 gramsevery 12 hours Doses may [...] from the original note were not included. [facility] Urology Consultation Patient Name: Eriberto Chau Physician [...] 17 g 17 g oral Daily PRN aRdha Dixon MD QUEtiapine (SEROquel) tablet 50 mg [...] Right arm Left arm Patient Position: [facility] 30 degrees Lying Pulse: 110 108 [...] CTA chest abdomen pelvis dated 09/26/[facility], CT dated 08/23/2023 from [facility] FINDINGS: Mild bibasilar atelectasis. Partially visualized aortic stent graft extending from the superior zcika-oh-lthy in the thoracic aorta to the distal [...] from the original note were not included. [facility] Urology Consultation Patient Name: Eriberto Chau Physician [...] 10/02/2023 Hypokalemia 10/02/2023 ANGI (acute kidney injury) ([facility]) 10/02/2023 Syncope 10/02/2023 Ureteral calculi 09/27/2023 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[facility]) 09/06/2023 Back pain at L4-L5 level 08/23/2023 PFO (patent foramen ovale) 07/05/2023 Ureteral stone 07/04/2023 Abdominal pain 07/04/2023 Other chronic pain 06/24/2023 Pseudoaneurysm following procedure (CMS/HCC) ([facility]) 06/24/2023 Infrarenal abdominal aortic aneurysm, without rupture ([facility]) 06/13/2023 Polysubstance abuse (CMS/HCC) ([facility]) 06/10/2023 Moderate malnutrition (CMS/HCC) ([facility]) 06/09/2023 Dissection of abdominal aorta (CMS/HCC) ([facility]) 06/03/2023 Urinary retention 05/16/2023 Epistaxis 05/13/2023 Pneumonia 05/13/2023 HTN (hypertension) 05/13/2023 Dissection of thoracoabdominal aorta (CMS/HCC) ([facility]) 05/02/2023 Dissection of aorta, unspecified [...] Course as of 10/04/23 1541 Time: 10/01 5831 Comment: Spoke with Urology. Noting that as long as there is not a new large obstructive stone or large hydronephrosis, no need for urgent Urology evaluation. OK to admit for antibiotics and pain control. No need for Urology follow-up unless pain not improved tomorrow. By: Mellisa Woo MD Time: 10/01 0953 Comment: UA concerning for UTI. Ceftriaxone ordered. By: Mellsia Woo MD Final diagnoses: Pyelonephritis [N12] Hypokalemia [E87.6] ANGI (acute kidney injury) ([facility]) [N17.9] Syncope, unspecified syncope type [R55] Dissection of aorta, unspecified portion of aorta ([facility]) [I71.00] Primary hypertension [I10] Weight loss [R63.4] ANGI (acute kidney injury) ([facility]) Mellisa Woo MD 10/04/23 1542 * Essie [...] Implant Name Type Inv. Item Serial No. Pest Control Service Representative Lot No. [id number] No. Used Action righTune Contour 6fr 26cm Large Inner Lumen Low Profile Bladder Ag Taper Latex [id number] - [id number] [employer] Contour 6fr 26cm Large Inner Lumen Low Profile BladderMark Taper Latex Free 180-223 [employer] Ben [id number] Right 1 Implanted OPERATIVE DETAILS Incision type: [...] technique. A time-out was performed. A 22 Lebanese cystoscope was introduced per urethra without difficulty. [...] after taking compazine that he should try Thayer. He said ok. Five minutes later he [...] Age: 33 y.o. male Admit: 10/02/2023 Bed: VYB790/[address] Subjective Chief complaint: pyelo Interval History: [...] portion of aorta (HCC) Follows with Dr Abraca Cont antihypertensives * Assessment & Plan Note [...] c/o lower back pain. Dilaudid, Tylenol, and Thayer being utilizedfor pain. Pt placed on telemetry [...] [employer] Prescription Coverage: Yes Pharmacy: [facility]/pharmacy #[id number] [place] [id number] [facility] [address] [facility] [address] Primary Care Provider: Carl Strickland MD Prior [...] Patient declined How often do you attend jehovah's witness or caodaism services?: Patient declined Do you belong to any clubs or organizations such as jehovah's witness groups, unions, fraternal or athletic groups, or [...] include: Home Health: IV therapy (Patient has [place] [facility]) (10/02/232031) Dialysis: NO Behavioral Health [...] Collaboration with patient, MD, direct care nurse, Street Light Servicer, and other members of the health care team to assure needed interventions completed. 2. Return patient to optimal level of self-care post discharge. 3. Arboriculture Teacher will follow for Discharge Planning - interventions [...] Chronic Care Management No change(05/16 2:51 PM CALL OR CONTACT CENTRE TEAM LEADER) No Rita Landa, BRIA Note: Problem: Chronic [...] MD IMG FLUOROSCOPY MAGED PRINCE Final Result [facility] * eGFR (10/04/2023 5:40 AM CDT) eGFR [...] MD LAB BLOOD ORDERABLES Fi nal Result [facility] [address] Department [place] [address] * Differential, auto (10/04/2023 5:40 AM CDT) Neutrophil abs 3.8 1.5 - 6.5 K/cumm Imm gran abs 0.1 0.0 - 0.1 K/cumm [facility] Lymphocyte abs 1.2 0.8 - 3.3 K/cumm [facility] Monocyte abs 0.7 0.2 - 0.8 K/cumm [facility] Eosinophil abs 0.0 0.0 - 0.5 K/cumm [facility] Basophil abs 0.0 0.0 - 0.1 K/cumm [facility] Neutrophil pct 66.5 % [facility] Comment: Interpretive Data Percent cell count reference ranges are not reported, since discordance with absolute values may lead to misinterpretation of CBC data. Current Interpretive Data was last revised on 2017. Imm gran pct 0.9 % [facility] Comment: Interpretive Data Percent cell count reference ranges are not reported, since discordance with absolute values may lead to misinterpretation of CBC data. Current Interpretive Data was last revised on 2017. Lymphocyte pct 20.1 % [facility] Comment: Interpretive Data Percent cell count reference ranges are not reported, since discordance with absolute values may lead to misinterpretation of CBC data. Current Interpretive Data was last revised on 2017. Monocyte pct 11.9 % [facility] Comment: Interpretive Data Percent cell count reference ranges are not reported, since discordance with absolute values may lead to misinterpretation of CBC data. Current Interpretive Data was last revised on 2017. Eosinophil pct 0.3 % [facility] Comment: Interpretive Data Percent cell count reference ranges are not reported, since discordance with absolute values may lead to misinterpretation of CBC data. Current Interpretive Data was last revised on 2017. Basophil pct 0.3 % [facility] Comment: Interpretive Data Percent cell count reference ranges are not reported, since discordance with absolute values may lead to misinterpretation of CBC data. Current Interpretive Data was last revised on 2017. Blood 10/04/2023 5:40 AM CDT 10/04/2023 6:45 AM CDT Doron Boudreaux MD LAB BLOOD ORDERABLES Fi nal Result Performing Organization Address [facility] Co de Phone Number [facility] [address] [place] [address] * Magnesium (10/04/2023 5:40 AM CDT) Pathologist [facility] Magnesium 2.1 1.4 - 2.5 mg/dL Blood 10/04/2023 5:40 AM CDT 10/04/2023 6:45 AM CDT Doron Boudreaux MD LAB BLOOD ORDERABLES Fi nal Result Performing Organization Address [facility] de Phone Number [facility] [address] [facility] [place] [address] * (ABNORMAL) Basic metabolic panel (10/04/2023 5:40 AM CDT) Pathologist [facility] Sodium 140 135 - 145 mmol/L Potassium, pl 3.6 3.3 - 4.9 mmol/L [facility] Chloride 104 97 - 110 mmol/L [facility] CO2 22 22 - 32 mmol/L [facility] Anion gap 14 2 - 15 mmol/L [facility] BUN 11 6 - 25 mg/dL [facility] Creatinine 1.56(H) 0.80 - 1.30 mg/dL [facility] Glucose 96 70 - 199 mg/dL [facility] Comment: Interpretive Data Fasting glucose [...] 2022. Calcium 8.6 8.5 - 10.3 mg/dL [facility] Blood 10/04/2023 5:40 AM CDT 10/04/2023 6:45 AM CDT Doron Boudreaux MD LAB BLOOD ORDERABLES Fi nal Result Performing Organization Address City/[facility]/ZIP Co de Phone Number [facility] [address] Department [place] [address] * (ABNORMAL) CBC with auto differential (10/04/2023 5:40 AM CDT) WBC 5.7 3.8 - 9.9 K/cumm Hgb 10.4(L) 13.0 - 17.5 g/dL [facility] Hct 32.9(L) 38.9 - 50.3 % [facility] Plt 236 150 - 400 K/cumm [facility] MPV 9.6 9.1 - 12.3 fL [facility] RBC 3.55(L) 4.30 - 5.80 M/cumm [facility] MCV 92.7 81.3 - 96.4 fL [facility] MCH 29.3 27.1 - 33.3 pg [facility] MCHC 31.6(L) 32.3 - 35.7 g/dL [facility] RDW CV 14.8 11.1 - 14.9 % [facility] RDW SD 50.7(H) 35.7 - 48.1 fL [facility] NRBC abs 0.00 0.00 - 0.01 K/cumm [facility] Blood 10/04/2023 5:40 AM CDT 10/04/2023 6:45 AM CDT Doron Boudreaux MD LAB BLOOD ORDERABLES Fi nal Result Performing Organization Address City/[facility]/ZIP Co de Phone Number [facility] [address] [facility] [place] [address] * Blood culture Blood (10/04/2023 1:58 AM CDT) Report Final Report: No growth Blood 10/04/2023 1:58 AM CDT 10/04/2023 2:11 AM CDT Narrative [facility] - 10/09/2023 7:01 AM CDT [...] organism identification may be performed using the Syn[employer]ricity Blood Culture Identification panel. This assay detects microbial DNA in a blood culture broth. This assay has been cleared by the [place] Food and Drug Administration and its performance characteristics have been verified by the [facility]. Interpretive data was last revised on July 01, 2022. Kim Patel MD LAB MICROBIOLOGY - GENERAL ORDERABLES Final Result [facility] [address] [facility] [place] [address] * Blood culture Blood (10/04/2023 1:25 AM CDT) Report Final Report: No growth Blood 10/04/2023 1:25 AM CDT 10/04/2023 1:51 AM CDT Narrative [facility] - 10/09/2023 7:01 AM CDT Collection->Peripheral Interpretive [...] organism identification may be performed using the Syn[employer]ity Blood Culture Identification panel. This assay detects microbial DNA in a blood culture broth. This assay has been cleared by the [place] Food and Drug Administration and its performance characteristics have been verified by the [facility]. Interpretive data was last revised on July 01, 2022. us Kim Patel MD LAB MICROBIOLOGY - GENERAL ORDERABLES Final Result [facility] [address] Department [place] [address] * TRANSTHORACIC ECHO (TTE) COMPLETE W DOPPLER/CF W CONTRAST (10/03/2023 4:05 PM CDT) Anatomical Region Laterality Modality Ultrasound 10/03/2023 2:55 PM CDT Narrative 10/03/2023 4:51 PM CDT [facility] [place] [address] ECHOCARDIOGRAM Patient Name: ERIBERTO CHAU I : 1990 Study Date: 10/03/2023 2:55:30 PM Gender: M Tech: Location: [id number] Ref Provider: RADHA DIXON ?Height(Cm): 175 BSA: [...] hypertrophy. Electronically Signed By: Deandre Meza MD, [facility] 2023-10-03 16:50:39 CDT Procedure Note Deandre Meza MD - 10/03/2023 [facility] [address] [place] [address] ECHOCARDIOGRAM Patient Name: ERIBERTO CHAU I : 1990 Study Date: 10/03/2023 2:55:30 PM Gender: M Tech: Location: [address] Ref Provider: RADHA DIXON Height(Cm): 175 [...] hypertrophy. Electronically Signed By: Deandre Meza MD, [facility] 2023-10-03 16:50:39 CDT us Radha Dixon MD [...] MD LAB BLOOD ORDERABLES Final Resu lt [facility] [address] Department [place] [address] * (ABNORMAL) Differential, auto (10/03/2023 8:01 AM CDT) Neutrophil abs 4.7 1.5 - 6.5 K/cumm Imm gran abs 0.1 0.0 - 0.1 K/cumm [facility] Lymphocyte abs 0.6(L) 0.8 - 3.3 K/cumm [facility] Monocyte abs 1.0(H) 0.2 - 0.8 K/cumm [facility] Eosinophil abs 0.0 0.0 - 0.5 K/cumm [facility] Basophil abs 0.0 0.0 - 0.1 K/cumm [facility] Neutrophil pct 74.0 % [facility] Comment: Interpretive Data Percent cell count reference ranges are not reported, since discordance with absolute values may lead to misinterpretation of CBC data. Current Interpretive Data was last revised on 2017. Imm gran pct 0.8 % [facility] Comment: Interpretive Data Percent cell count reference ranges are not reported, since discordance with absolute values may lead to misinterpretation of CBC data. Current Interpretive Data was last revised on 2017. Lymphocyte pct 9.7 % [facility] Comment: Interpretive Data Percent cell count reference ranges are not reported, since discordance with absolute values may lead to misinterpretation of CBC data. Current Interpretive Data was last revised on 2017. Monocyte pct 15.2 % [facility] Comment: Interpretive Data Percent cell count reference ranges are not reported, since discordance with absolute values may lead to misinterpretation of CBC data. Current Interpretive Data was last revised on 2017. Eosinophil pct 0.0 % [facility] Comment: Interpretive Data Percent cell count reference ranges are not reported, since discordance with absolute values may lead to misinterpretation of CBC data. Current Interpretive Data was last revised on 2017. Basophil pct 0.3 % [facility] Comment: Interpretive Data Percent cell count reference ranges are not reported, since discordance with absolute values may lead to misinterpretation of CBC data. Current Interpretive Data was last revised on 2017. Blood 10/03/2023 8:01 AM CDT 10/03/2023 9:26 AM CDT us Loyda Hernandez MD LAB BLOOD ORDERABLES Final Resu lt [facility] [address] Department [place] [address] * Magnesium (10/03/2023 8:01 AM CDT) Magnesium 1.9 1.4 - 2.5 mg/dL Blood 10/03/2023 8:01 AM CDT 10/03/2023 9:56 AM CDT us Radha Dixon MD LAB BLOOD ORDERABLES F inal Result Performing Organization Address [facility] Co de Phone Number [facility] [address] Department of [facility] [place], [place] [id number] * (ABNORMAL) CBC with auto differential (10/03/2023 8:01 AM CDT) WBC 6.3 3.8 - 9.9 K/cumm Hgb 10.0(L) 13.0 - 17.5 g/dL [facility] Hct 31.1(L) 38.9 - 50.3 % [facility] Plt 230 150 - 400 K/cumm [facility] MPV 9.3 9.1 - 12.3 fL [facility] RBC 3.35(L) 4.30 - 5.80 M/cumm [facility] MCV 92.8 81.3 - 96.4 fL [facility] MCH 29.9 27.1 - 33.3 pg [facility] MCHC 32.2(L) 32.3 - 35.7 g/dL [facility] RDW CV 15.0(H) 11.1 - 14.9 % [facility] RDW SD 50.0(H) 35.7 - 48.1 fL [facility] NRBC abs 0.00 0.00 - 0.01 K/cumm [facility] Blood 10/03/2023 8:01 AM CDT 10/03/2023 9:26 AM CDT us Loyda Hernandez MD LAB BLOOD ORDERABLES Final Resu lt Performing Organization Address City/[facility]/ZIP Co de Phone Number [facility] [address] Department of [facility] [place], [place] [id number] * (ABNORMAL) Basic metabolic panel (10/03/2023 8:01 AM CDT) Sodium 134(L) 135 - 145 mmol/L Potassium, pl 3.3 3.3 - 4.9 mmol/L [facility] Chloride 100 97 - 110 mmol/L [facility] CO2 22 22 - 32 mmol/L [facility] Anion gap 12 2 - 15 mmol/L [facility] BUN 15 6 - 25 mg/dL [facility] Creatinine 1.15 0.80 - 1.30 mg/dL [facility] Glucose 95 70 - 199 mg/dL [facility] Comment: Interpretive Data Fasting glucose [...] 2022. Calcium 8.4(L) 8.5 - 10.3 mg/dL [facility] Blood 10/03/2023 8:01 AM CDT 10/03/2023 9:56 AM CDT us Loyda Hernandez MD LAB BLOOD ORDERABLES Final Resu lt Performing Organization Address City/[facility]/ZIP Co de Phone Number [facility] [address] Department [place] [address] * Urine culture Urine, clean voided (10/03/2023 1:00 AM CDT) Report Final Report: No growth Urine, clean voided 10/03/2023 1:00 AM CDT 10/03/2023 5:13 AM CDT Narrative [facility] - 10/05/2023 6:00 AM CDT Urine culture reflexed based upon urinalysis results. us Craig Reed MD LAB MICROBIOLOGY - GENERAL ORDERABLES Final Result Performing Organization Address City/[facility]/ZIP Co de Phone Number [facility] [address] Department [place] [address] * (ABNORMAL) Urinalysis, microscopic only (10/03/2023 1:00 AM CDT) WBC, ur >50(A) 0 - 5 /HPF RBC, ur >50(A) 0 - 2 /HPF [facility] Culture Reflex Comment Reflex to urine culture will be performed. [facility] Urine, clean voided 10/03/2023 1:00 AM CDT 10/03/2023 1:13 AM CDT us Craig Reed MD LAB URINE ORDERABLES Final Result [facility] [address] Department [place] [address] * (ABNORMAL) Urinalysis reflex to microscopic and culture Urine, clean voided (10/03/2023 1:00 AM CDT) Color, ur Tessa Yellow Clarity, ur Turbid(A) Clear [facility] Specific gravity, ur 1.035(H) 1.003 - 1.030 [facility] pH, urine 6.0 [facility] Comment: Interpretive Data ? Urine pH is affected by diet, medications, systemic acid-base disturbances, and renal tubular function. ??pH may affect urinary stone formation. ??For example, urine pH below 6.0 may help reduce the tendency for calcium phosphate stones and pH greater than 6.0 may reduce the tendency for uric acid stone formation. Source: [facility] Current Interpretive Data was last revised on 2017 Protein, ur ql 1+(A) Negative [facility] Glucose, ur ql Negative Negative [facility] Ketones, ur Negative Negative [facility] Bilirubin, ur Negative Negative [facility] Blood, ur 3+(A) Negative [facility] Urobilinogen, ur <2.0 <2.0 mg/dL [facility] Nitrite, ur Negative Negative [facility] Leukocyte esterase, ur 3+(A) Negative [facility] UA reflex comment Reflex to microscopic UA will be performed. [facility] Urine, clean voided 10/03/2023 1:00 AM CDT 10/03/2023 1:13 AM CDT us Craig Reed MD LAB MICROBIOLOGY - GENERAL ORDERABLES Final Result [facility] [address] Department [place] [address] * CT Abdomen Pelvis W Contrast (10/02/2023 [...] PM CDT 10/02/2023 8:31 PM CDT Narrative [facility] - 10/04/2023 9:00 PM CDT Urine culture reflexed based upon urinalysis results. Mellisa Woo MD LAB MICROBIOLOGY - GENERA L ORDERABLES Final Result Performing Organization Address [facility] de Phone Number [facility] [address] [facility] [place] [address] * (ABNORMAL) Urinalysis, microscopic only (10/02/2023 1:56 PM CDT) WBC, ur >50(A) 0 - 5 /HPF RBC, ur >50(A) 0 - 2 /HPF [facility] Epithelial cells, squamous, ur 1-5 0 - 5 /HPF [facility] Bacteria, ur 3+(A) [facility] Mucous, ur Present(A) [facility] Culture Reflex Comment Reflex to urine culture will be performed. [facility] Urine, bladder 10/02/2023 1: 56 PM CDT 10/02/2023 2:04 PM CDT Mellisa Woo MD LAB URINE ORDERABLES Sally l Result Performing Organization Address [facility] de Phone Number [facility] [address] [facility] [place] [address] * (ABNORMAL) Urinalysis reflex to microscopic and culture Urine, bladder (10/02/2023 1:56 PM CDT) Color, ur Tessa Yellow Clarity, ur Turbid(A) Clear [facility] Specific gravity, ur 1.023 1.003 - 1.030 [facility] pH, urine 6.0 [facility] Comment: Interpretive Data ? Urine pH is affected by diet, medications, systemic acid-base disturbances, and renal tubular function. ??pH may affect urinary stone formation. ??For example, urine pH below 6.0 may help reduce the tendency for calcium phosphate stones and pH greater than 6.0 may reduce the tendency for uric acid stone formation. Source: [facility] Current Interpretive Data was last revised on 2017 Protein, ur ql 2+(A) Negative [facility] Glucose, ur ql Negative Negative [facility] Ketones, ur Negative Negative [facility] Bilirubin, ur Negative Negative [facility] Blood, ur 3+(A) Negative [facility] Urobilinogen, ur <2.0 <2.0 mg/dL [facility] Nitrite, ur Negative Negative [facility] Leukocyte esterase, ur 4+(A) Negative [facility] UA reflex comment Reflex to microscopic UA will be performed. [facility] Urine, bladder 10/02/2023 1: 56 PM CDT 10/02/2023 1:56 PM CDT us Mellisa Woo MD LAB MICROBIOLOGY - GENERA L ORDERABLES Final Result [facility] [address] Department [place] [address] * (ABNORMAL) eGFR (10/02/2023 1:37 PM CDT) [...] MD LAB BLOOD ORDERABLES Sally zhang Result [facility] [address] Department [place] [address] * (ABNORMAL) Differential, auto (10/02/2023 1:37 PM CDT) Neutrophil abs 6.0 1.5 - 6.5 K/cumm Imm gran abs 0.0 0.0 - 0.1 K/cumm [facility] Lymphocyte abs 0.5(L) 0.8 - 3.3 K/cumm [facility] Monocyte abs 0.9(H) 0.2 - 0.8 K/cumm [facility] Eosinophil abs 0.1 0.0 - 0.5 K/cumm [facility] Basophil abs 0.0 0.0 - 0.1 K/cumm [facility] Neutrophil pct 79.8 % [facility] Comment: Interpretive Data Percent cell count reference ranges are not reported, since discordance with absolute values may lead to misinterpretation of CBC data. Current Interpretive Data was last revised on 2017. Imm gran pct 0.5 % [facility] Comment: Interpretive Data Percent cell count reference ranges are not reported, since discordance with absolute values may lead to misinterpretation of CBC data. Current Interpretive Data was last revised on 2017. Lymphocyte pct 7.1 % [facility] Comment: Interpretive Data Percent cell count reference ranges are not reported, since discordance with absolute values may lead to misinterpretation of CBC data. Current Interpretive Data was last revised on 2017. Monocyte pct 11.5 % [facility] Comment: Interpretive Data Percent cell count reference ranges are not reported, since discordance with absolute values may lead to misinterpretation of CBC data. Current Interpretive Data was last revised on 2017. Eosinophil pct 0.8 % [facility] Comment: Interpretive Data Percent cell count reference ranges are not reported, since discordance with absolute values may lead to misinterpretation of CBC data. Current Interpretive Data was last revised on 2017. Basophil pct 0.3 % [facility] Comment: Interpretive Data Percent cell count reference ranges are not reported, since discordance with absolute values may lead to misinterpretation of CBC data. Current Interpretive Data was last revised on 2017. Blood 10/02/2023 1:37 PM CDT 10/02/2023 1:56 PM CDT Mellisa Woo MD LAB BLOOD ORDERABLES Sally l Result Performing Organization Address [facility] Co de Phone Number [facility] [address] Department [place] [address] * Lipase (10/02/2023 1:37 PM CDT) [facility] Lipase 10 10 - 99 Units/L Blood 10/02/2023 1:37 PM CDT 10/02/2023 1:56 PM CDT Mellisa Woo MD LAB BLOOD ORDERABLES Sally l Result Performing Organization Address [facility]/ZIP Co de Phone Number [facility] [address] Department [place] [address] * (ABNORMAL) Comprehensive metabolic panel (10/02/2023 1:37 PM CDT) [facility] Sodium 138 135 - 145 mmol/L Potassium, pl 3.1(L) 3.3 - 4.9 mmol/L [facility] Chloride 101 97 - 110 mmol/L [facility] CO2 25 22 - 32 mmol/L [facility] Anion gap 12 2 - 15 mmol/L [facility] BUN 27(H) 6 - 25 mg/dL [facility] Creatinine 1.70(H) 0.80 - 1.30 mg/dL [facility] Glucose 93 70 - 199 mg/dL [facility] Comment: Interpretive Data Fasting glucose [...] 2022. Calcium 9.2 8.5 - 10.3 mg/dL [facility] Bilirubin, total 0.4 0.1 - 1.2 mg/dL [facility] Protein, pl 8.0 6.5 - 8.5 g/dL [facility] Albumin 4.3 3.5 - 5.0 g/dL [facility] Alk phos 90 40 - 130 Units/L [facility] ALT 8 7 - 55 Units/L [facility] AST 10 10 - 50 Units/L [facility] Blood 10/02/2023 1:37 PM CDT 10/02/2023 1:56 PM CDT us Mellisa Woo MD LAB BLOOD ORDERABLES Sally zhang Result [facility] [address] Department [place] [address] * (ABNORMAL) CBC with auto differential (10/02/2023 1:37 PM CDT) Pathologist [facility] WBC 7.5 3.8 - 9.9 K/cumm Hgb 10.7(L) 13.0 - 17.5 g/dL [facility] Hct 32.2(L) 38.9 - 50.3 % [facility] Plt 259 150 - 400 K/cumm [facility] MPV 9.4 9.1 - 12.3 fL [facility] RBC 3.62(L) 4.30 - 5.80 M/cumm [facility] MCV 89.0 81.3 - 96.4 fL [facility] MCH 29.6 27.1 - 33.3 pg [facility] MCHC 33.2 32.3 - 35.7 g/dL [facility] RDW CV 14.8 11.1 - 14.9 % [facility] RDW SD 48.2(H) 35.7 - 48.1 fL [facility] NRBC abs 0.00 0.00 - 0.01 K/cumm [facility] Blood 10/02/2023 1:37 PM CDT 10/02/2023 1:56 PM CDT us Mellisa Woo MD LAB BLOOD ORDERABLES Sally zhang Result [facility] [address] Department [place] [address] documented in this encounter Visit Diagnoses Diagnosis [...] - Provider: Migel Oliveira - Reason: Resident/resident commissary representative refused - education provided) 005 (Given - Provider: Migel Oliveira) labetaloL (NORMODYNE,TRANDATE) tablet 400 mg 400 mg, oral, 2 times daily, First dose on 10/02/23 at 2130, Please hold for SBP < 120 2106 (Given - Provider: Migel Oliveira) 1018 (Given - Provider: Naomi Mejia RN)2046 (Not Given - Provider: Migel Oliveira - Reason: Resident/resident commissary representative refused - education provided) 06 (JUL [...] Naomi Mejia, BRIA)1846 (New Bag - Provider: Noami Mejia, BRIA)2010 (Stopped - Provider: Migel Oliveira)2125 [...] Migel Oliveira) 1016 (Given - Provider: Naomi Mejia, BRIA - Comment: Pt was vomiting)2051 (Not Given - Provider: Migel Oliveira - Reason: Patient/family refused) 0626 (JUL Hold - Provider: Automatic Transfer Provider - Reason: Patient not available)0900 (Dose Auto Held - Provider: Automatic Transfer Provider)0923 ([facility] Unhold - Provider: Automatic Transfer Provider)0941 [...] - Provider: Migel Oliveira - Reason: Other)0626 ([facility] Hold - Provider: Automatic Transfer Provider - Reason: Patient not available)0923 ([facility] Unhold - Provider: Automatic Transfer Provider)1400 (Due) tamsulosin (FLOMAX) extended release capsule 0.4 mg 0.4 mg, oral, Daily, First dose on Tue10/03/23 at 0900, Do not crush, chew, cut, dissolve, open or otherwise manipulate tablet/capsule. 1017 (Given - Provider: Naomi Mejia, BRIA) 0626 ([facility] Hold - Provider: Automatic Transfer Provider - Reason: Patient not available)0900 (Dose Auto Held - Provider: Automatic Transfer Provider)0923 ([facility] Unhold - Provider: Automatic Transfer Provider)0941 (Given - Provider: Naomi Mejia RN) Continuous Medication Order 10/02/2023 10/03/2023 10/04/2023 Lactated Ringer's (LR) infusion 30 mL/hr, intravenous, Continuous, Starting on Tue10/04/23 at 0715, Pre-Op 0702 (New Bag - Provider: Darrion Rivas RN)0716 (Rate/Dose Verify - Provider: Franci Maloney CRNA)0738 (Paused - Provider: Franci Malnoey CRNA - Comment: Switch to gravity)0739 (Restarted [...] primary IV, not intended for KVO. 06 ([facility] Hold - Provider: Automatic Transfer Provider - Reason: Patient not available)09 ([facility] Unhold - Provider: Automatic Transfer Provider) dicyclomine (BENTYL) capsule 20 mg 20 mg, oral, Every 6 hours PRN, For abdominal pain, Starting on 10/02/23 at 2051 06 ([facility] Hold - Provider: Automatic Transfer Provider - Reason: Patient not available)09 ([facility] Unhold - Provider: Automatic Transfer Provider) [...] BRIA) 0055 (Given - Provider: Migel Oliveira)06 ([facility] Hold - Provider: Automatic Transfer Provider - Reason: Patient not available)09 ([facility] Unhold - Provider: Automatic Transfer Provider) hydrocortisone (ANUSOL-HC) 2.5 % rectal cream rectal, 2 times daily PRN, hemorrhoids, Starting on 10/02/23 at 2051 06 ([facility] Hold - Provider: Automatic Transfer Provider - Reason: Patient not available)09 ([facility] Unhold - Provider: Automatic Transfer Provider) [...] Provider: Naomi Mejia, RN)1724 (Given - Provider: Naomi Mejia, BRIA)192 (Given - Provider: Naomi Mejia, RN)212 (Given - Provider: Migel Oliveira) 0532 (Given - Provider: Migel Oliveira)0626 ([facility] Hold - Provider: Automatic Transfer Provider - Reason: Patient not available)0923 ([facility] Unhold - Provider: Automatic Transfer Provider) hyoscyamine (OSCIMIN) disintegrating tablet 125 mcg 125 mcg, oral, Every 4 hours PRN, bladder spasms, Starting on 10/02/23 at 2051, Indications: Ureteral stent discomfort 06 (JUL Hold - Provider: Automatic Transfer Provider - Reason: Patient not available)0923 ([facility] Unhold - Provider: Automatic Transfer Provider) [...] Transfer Provider - Reason: Patient not available)0923 ([facility] Unhold - Provider: Automatic Transfer Provider) ondansetron ODT (ZOFRAN-ODT) disintegrating tablet 4 mg(Linked Group 1) 4 mg, oral, Every 6 hours PRN, nausea, vomiting, Starting on 10/02/23 at 2027, Indications: Nausea and Vomiting 2034 (See Alternative - Provider: Cayla Toussaint RN) 0437 (Given - Provider: Migel Oliveira) 06 ([facility] Hold - Provider: Automatic Transfer Provider - Reason: Patient not available)09 ([facility] Unhold - Provider: Automatic Transfer Provider) oxyBUTYnin (DITROPAN) tablet 5 mg 5 mg, oral, 3 times daily PRN, Bladder spasms/discomfort, Starting on Tue10/02/23 at 2037, Indications: Ureteral stent discomfort 06 ([facility] Hold - Provider: Automatic Transfer Provider - Reason: Patient not available)09 ([facility] Unhold - Provider: Automatic Transfer Provider) [...] 1605 (Contrast Given - Provider: Anabel Pérez [facility] - Comment: Anabel administered) polyethylene glycol (MIRALAX) packet 17 g 17 g, oral, Daily PRN, constipation, Starting on Tue10/02/23 at 2052, Indications: constipation 06 ([facility] Hold - Provider: Automatic Transfer Provider - Reason: Patient not available)922 ([facility] Unhold - Provider: Automatic Transfer Provider) prochlorperazine (COMPAZINE) injection 5 mg 5 mg, intravenous, Administer over 2 Minutes, Every 6 hours PRN, nausea, vomiting, 2nd line, Starting on Tue10/03/23 at 0755 0917 (Given - Provider: Naomi Mejia RN) 06 ([facility] Hold - Provider: Automatic Transfer Provider - Reason: Patient not available)09 ([facility] Unhold - Provider: Automatic Transfer Provider) ramelteon (ROZEREM) tablet 8 mg 8 mg, oral, Nightly PRN, sleep, Starting on Tue10/02/23 at 2051, Indications: Sleep-Onset Insomnia 2106 (Given - Provider: Migel Oliveira) 2051 (Given - Provider: Migel Oliveira) 06 ([facility] Hold - Provider: Automatic Transfer Provider - Reason: Patient not available)09 ([facility] Unhold - Provider: Automatic Transfer Provider) sodium chloride 0.9% flush 0.5-20 mL 0.5-20 mL, intra-catheter, As needed, line care, Starting on Tue10/02/23 at 2051, Flush volume based on line type and size. Flush before and after each use. 06 (JUL Hold - Provider: Automatic Transfer Provider - Reason: Patient not available)09 ([facility] Unhold - Provider: Automatic Transfer Provider) [...] 10/04/2023 documented in this encounter Care Teams Executive Vice President Business Development Relationship Specialty Start Date End Date Carl Strickland MD [address] [facility] [address] [place] [address] PCP - General Internal Medicine 06/06/23 Leo Manzano MD [address] [facility] [id number] [place] [address] Surgeon Vascular Surgery 05/16/23 documented as of this encounter
--- OUTSIDE RECORDS SUMMARY | 2024-05-30 06:27 | XMS_ITS | Encounter Summary ---
Author Organization [facility] Address [address] [place] [address] Phone Care Team Providers Care Sheet Metal Erector Name Role Phone Leo Manzano MD Unavailable [phone] Carl Strickland MD Primary Care Provider Encounter Details Date Type Department Care Team (Late st Contact Info) Description 09/26/2023 Telephone [facility] Surgery [address] [place] [address] Daryl Farris Social History Tobacco Use Types Packs/Day Years Used Date Smoking Tobacco: Never Smokeless Tobacco: Never Alcohol Use Standard Drinks/Week Comments Not Currently 0 (1 standard drink = 0.6 oz pur e alcohol) [facility] Utilities Answer Date Recorded In the past 12 months has [employer], gas, oil, or water [employer] threatened to shut off services in your home? Patient declined 09/12/2023 Social Connection and Isolation Panel [NHANES] A nswer Date Recorded In a typical week, how many times do you talk on the phone with family, friends, or neighbors? Patient declined 09/12/2023 How often do you get togethe r with friends or relatives? Patient declined 09/12/2023 How often do you attend baptist or buddhist serv ices? Patient declined 09/12/2023 Do you belong to any clubs o r organizations such as baptist groups, unions, fraternal or athletic groups, or [...] place to sleep or slept in a group home (including now)? Patient declined 09/12/2023 Personal Safety Answer Date Recorded Have you ever been in or are you currently in a harmful physical or emotional relationship or is someone making you feel afraid or unsafe? 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 Per Meron, the patient has a large kidney stone that he is unable to pass. Meron mentioned that the ER physician spoke to Dr. Gamboa regarding the patient. Per Meron, it was advised that the patient go through [place] emergency room or it could go home with pain medication and flomax, which the patient is currently on, and try to get in sooner than 5/10with Dr. Gamboa. Meron stated that the patient did not take the option to go to [place] ER after leaving [place] ER because the patient has an appointment [...] Care Management No change(05/16 2:51 PM SENIOR SOFTWARE TESTER) No Rita Landa, RN Note: Problem: Chronic Pain Goals: 1. Minimize further functional decline 2. Maximize quality of life 3. Control pain Strategies: - Activity/exercise program recommendation - Conservative stepwise pain medicine strategy with multi-disciplinary approach - Recommend healthy lifestyle strategies and compensatory methods as needed documented as of this encounter Visit Diagnoses Not on filedocumented in this encounter Care Teams Sheet Metal Erector Relationship Specialty Start Date End Date Carl Strickland MD [address] [facility] [address] [place] [address] PCP - General Internal Medicine 06/06/23 Leo Manzano MD [address] [facility] [id number] [place] [address] Surgeon Vascular Surgery 05/16/23 documented as of this encounter
--- OUTSIDE RECORDS SUMMARY | 2024-05-30 06:27 | XMS_ITS | Encounter Summary ---
Author Organization [facility] Address [address] [place] [address] Phone Care Team Providers Care Mat Worker Name Role Phone Leo Manzano MD Unavailable [phone] Carl Strickland MD Primary Care Provider Encounter Details Date Type Department Care Team (Late st Contact Info) Description 10/14/2023 Telephone [facility] Surgery [address] [place] [address] Social History Tobacco Use Types Packs/Day Years Used Date Smoking Tobacco: Never Smokeless Tobacco: Never Alcohol Use Standard Drinks/Week Comments Not Currently 0 (1 standard drink = 0.6 oz pur e alcohol) [facility] Utilities Answer Date Recorded In the past 12 months has [employer], gas, oil, or water [employer] threatened to shut off services in your home? Patient declined 10/02/2023 Social Connection and Isolation Panel [NHANES] A nswer Date Recorded In a typical week, how many times do you talk on the phone with family, friends, or neighbors? Patient declined 10/02/2023 How often do you get togethe r with friends or relatives? Patient declined 10/02/2023 How often do you attend religious or confucianism serv ices? Patient declined 10/02/2023 Do you belong to any clubs o r organizations such as religious groups, unions, fraternal or athletic groups, or [...] on file Legal Sex Male 3:42 AM CLAIMS SUPERVISOR Gender Identity Not on file Sexual Orientation Straight 06/12/2023 11 :43 PM CLAIMS SUPERVISOR documented as of this encounter Miscellaneous Notes [...] his urine. Please call patient Patient Provider: [facility] Information: Outcome/Plan: documented in this encounter Plan of Treatment Not on file documented as of this encounter Goals Goal Patient Goal Type Associated Problems Recent Progress Patient-Stated? Author CCM Chronic Pain Care Plan Chronic Care Management No change(05/16 2:51 PM CLAIMS SUPERVISOR) No Rita Landa RN Note: Problem: Chronic Pain Goals: 1. Minimize further functional decline 2. Maximize quality of life 3. Control pain Strategies: - Activity/exercise program recommendation - Conservative stepwise pain medicine strategy with multi-disciplinary approach - Recommend healthy lifestyle strategies and compensatory methods as needed documented as of this encounter Visit Diagnoses Not on filedocumented in this encounter Care Teams Mat Worker Relationship Specialty Start Date End Date Carl Strickland MD [address] [place], [place] [id number] PCP - General Internal Medicine 06/06/23 Leo Manzano MD [address] [place] [address] Surgeon Vascular Surgery 05/16/23 documented as of this encounter
--- OUTSIDE RECORDS SUMMARY | 2024-05-30 06:27 | XMS_ITS | Encounter Summary ---
Author Organization [facility] Address [address] [place] [address] Phone Care Team Providers Care Heating Mechanic Name Role Phone Leo Manzano MD Unavailable [phone] Carl Strickland MD Primary Care Provider Encounter Details Date Type Department Care Team (Late st Contact Info) Description 11/22/2023 Orders Only [facility] Cardiology [address] [facility] Advanced Medicine 8th [place] [address] [place] [address] Mariah Case RN Social History Tobacco Use Types Packs/Day Years Used Date Smoking Tobacco: Never Smokeless Tobacco: Never Alcohol Use Standard Drinks/Week Comments Not Currently 0 (1 standard drink = 0.6 oz pur e alcohol) [facility] Utilities Answer Date Recorded In the past 12 months has [employer], gas, oil, or water company threatened [...] How often do you attend yazdanism or methodist serv ices? 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 RESOURCE FORESTER Gender Identity Not on file Sexual Orientation Straight 06/12/2023 11 :43 PM RESOURCE FORESTER documented as of this encounter Plan of Treatment Not on file documented as of this encounter Goals Goal Patient Goal Type Associated Problems Recent Progress Patient-Stated? Author CCM Chronic Pain Care Plan Chronic Care Management No change(05/16 2:51 PM RESOURCE FORESTER) No Rita Landa RN Note: Problem: Chronic Pain Goals: 1. Minimize further functional decline 2. Maximize quality of life 3. Control pain Strategies: - Activity/exercise program recommendation - Conservative stepwise pain medicine strategy with multi-disciplinary approach - Recommend healthy lifestyle strategies and compensatory methods as needed documented as of this encounter Visit Diagnoses Not on filedocumented in this encounter Care Teams Heating Mechanic Relationship Specialty Start Date End Date Carl Strickland MD [address] [facility] 1 [place] [address] PCP - General Internal Medicine 06/06/23 Leo aMnzano MD [address] [facility] [address] [place] [address] Surgeon Vascular Surgery 05/16/23 documented as of this encounter
--- OUTSIDE RECORDS SUMMARY | 2024-05-30 06:27 | XMS_ITS | Encounter Summary ---
Author Organization [facility] Address [address] [place] [address] Phone Care Team Providers Care Change Director Name Role Phone Leo Manzano MD Unavailable [phone] Carl Strickland MD Primary Care Provider Encounter Details Date Type Department Care Team (Late st Contact Info) Description 12/16/2023 Telephone [facility] Cardiology [address] [facility] Advanced Medicine 8th [place] [address] [place] [address] Joaquín Abarca MD [address] [facility] [address] [place] [address] Social History Tobacco Use Types Packs/Day Years Used Date Smoking Tobacco: Never Smokeless Tobacco: Never Alcohol Use Standard Drinks/Week Comments Not Currently 0 (1 standard drink = 0.6 oz pur e alcohol) [facility] Utilities Answer Date Recorded In the past 12 months has [employer], gas, oil, or water company threatened [...] declined 10/02/2023 How often do you attend catholic or restoration serv ices? Patient declined 10/02/2023 Do you belong to any clubs o r organizations such as catholic groups, unions, fraternal or athletic groups, or [...] place to sleep or slept in a skilled nursing (including now)? Patient declined 10/02/2023 Personal Safety Answer Date Recorded Have you ever been in or are you currently in a harmful physical or emotional relationship or is someone making you feel afraid or unsafe? Denies 10/04/2023 Sex and Gender Information Value Date Recorded Sex Assigned at Not on file Legal Sex Male 3:42 AM ITEM PROCESSING CLERK Gender Identity Not on file Sexual Orientation Straight 06/12/2023 11 :43 PM ITEM PROCESSING CLERK documented as of this encounter Miscellaneous Notes [...] Chronic Care Management No change(05/16 2:51 PM ITEM PROCESSING CLERK) No Rita Landa, RN Note: Problem: Chronic Pain Goals: 1. Minimize further functional decline 2. Maximize quality of life 3. Control pain Strategies: - Activity/exercise program recommendation - Conservative stepwise pain medicine strategy with multi-disciplinary approach - Recommend healthy lifestyle strategies and compensatory methods as needed documented as of this encounter Visit Diagnoses Not on filedocumented in this encounter Care Teams Change Director Relationship Specialty Start Date End Date Carl Strickland MD [address] [facility] 1 [place] [address] PCP - General Internal Medicine 06/06/23 Leo Manzano MD [address] [facility] [address] [place] [address] Surgeon Vascular Surgery 05/16/23 documented as of this encounter
--- OUTSIDE RECORDS SUMMARY | 2024-05-30 06:27 | XMS_ITS | Encounter Summary ---
Author Organization [facility] Address [address] [place] [address] Phone Care Team Providers Care Edger Operator Name Role Phone Leo Manzano MD Unavailable [phone] Carl Strickland MD Primary Care Provider Encounter Details Date Type Department Care Team (Latest Contact Info) Description 09/28/2023 Orders Only [facility] Sc[facility], Provider Social History Tobacco Use Types Packs/Day Years Used Date Smoking Tobacco: Never Smokeless Tobacco: Never Alcohol Use Standard Drinks/Week Comments Not Currently 0 (1 standard drink = 0.6 oz pur e alcohol) [facility] Utilities Answer Date Recorded In the past 12 months has [employer], gas, oil, or water [employer] [place] threatened to shut off services in your home? Patient declined 10/02/2023 Social Connection and Isolation Panel [NHANES] A nswer Date Recorded In a typical week, how many times do you talk on the phone with family, friends, or neighbors? Patient declined 10/02/2023 How often do you get togethe r with friends or relatives? Patient declined 10/02/2023 How often do you attend confucianism or mandaen serv ices? Patient declined 10/02/2023 Do you belong to any clubs o r organizations such as confucianism groups, unions, fraternal or athletic groups, or [...] a long-term (including now)? Patient declined 10/02/2023 Personal Safety Answer Date Recorded Have you ever been in or are you currently in a harmful physical or emotional relationship or is someone making you feel afraid or unsafe? Denies 10/04/2023 Sex and Gender Information Value Date Recorded Sex Assigned at Not on file Legal Sex Male 3:42 AM ADMISSIONS RECRUITER Gender Identity Not on file Sexual Orientation Straight 06/12/2023 11 :43 PM ADMISSIONS RECRUITER documented as of this encounter Progress Notes [...] Chronic Care Management No change(05/16 2:51 PM ADMISSIONS RECRUITER) No Rita Landa, RN Note: Problem: Chronic [...] on filedocumented in this encounter Care Teams Edger Operator Relationship Specialty Start Date End Date Carl Strickland MD [address] [facility] 1 [place] [address] PCP - General Internal Medicine 06/06/23 Leo Manzano MD [address] [facility] [address] [place] [address] Surgeon Vascular Surgery 05/16/23 documented as of this encounter
--- OUTSIDE RECORDS SUMMARY | 2024-05-30 06:27 | XMS_ITS | Encounter Summary ---
Author Organization [facility] Address [address] [place] [address] Care Team Providers Care Data Reduction Technician Name Role Phone Leo Manzano MD Unavailable [phone] Carl Strickland MD Primary Care Provider Reason for Referral * Diagnostic Imaging (Routine) - Closed Specialty Diagnoses / Procedures Referred By Contac t Referred To Contact Diagnoses Sacroiliitis (HCC) Procedures Imaging SI Joint Injection Bilateral (75232) Adrianne Adams MD PhD [address] [facility] [address] [place] [address] Phone: tel: fax: [address] [address] Referral ID Status Reason Start Date Expiration Date Visits Re quested Visits Authorized [id number] Closed 01/20/2024 02/18/2025 1 1 Reason for Visit * Reason Comments Back Pain Encounter Details Date Type Department Care Team (Latest Contact Info) Description 01/20/2024 2:35 PM CDT - 01/20/2024 11:59 PM CDT Hospital Encounter [facility] [place] [facility] [address] [place] [address] Advanced Medicine [address] [place], [place] [id number] Adrianne Adams MD PhD [address] [place] [address] Sacroiliitis (HCC) (Primary Dx); Spondylosis of lumbar [...] Recorded In the past 12 months has [employer], gas, oil, or water [employer] threatened to shut off services in your home? Patient declined 10/02/2023 Social Connection and Isolation Panel [NHANES] A nswer Date Recorded In a typical week, how many times do you talk on the phone with family, friends, or neighbors? Patient declined 10/02/2023 How often do you get togethe r with friends or relatives? Patient declined 10/02/2023 How often do you attend restoration or baptist serv ices? Patient declined 10/02/2023 Do you belong to any clubs o r organizations such as restoration groups, unions, fraternal or athletic groups, or [...] or slept in a retirement (including now)? Patient declined 10/02/2023 Personal Safety Answer Date Recorded Have you ever been in or are you currently in a harmful physical or emotional relationship or is someone making you feel afraid or unsafe? Denies 10/04/2023 Sex and Gender Information Value Date Recorded Sex Assigned at Not on file Legal Sex Male 3:42 AM MEDICAL LABORATORY MANAGER Gender Identity Not on file Sexual Orientation Straight 06/12/2023 11 :43 PM MEDICAL LABORATORY MANAGER documented as of this encounter [...] injection next available. - please bring a driver's license examiner for procedure SACROILIAC JOINT INJECTION PAIN MANAGEMENT [...] x-ray table while you are awake. A maintenance service technician will be taking x-rays. A nurse [...] palpation of spinal processes. Paraspinal muscle tenderness. [id number] SPINE: Tenderness at the lumbosacral region. Positive [...] loading positive bilaterally SI joint tenderness, TANJA, [place]'s, Compression tests positive bilaterally Hip tenderness: negative [...] Clinical Fellow, Pain Management Department of Anesthesiology [facility] in [place] 01/20/24 * Italo Ortiz, BRIA - 01/20/2024 [...] Hernandez, Leona) [] Depression/Anxiety Assessment (GAD7, PHQ-9, [place] Suicide, Harry Depression) [] Disability Scale [] [...] Care Management No change(05/16 2:51 PM MEDICAL LABORATORY MANAGER) No Rita Landa, BRIA Note: Problem: Chronic Pain Goals: 1. Minimize further functional decline 2. Maximize quality of life 3. Control pain Strategies: - Activity/exercise program recommendation - Conservative stepwise pain medicine strategy with multi-disciplinary approach - Recommend healthy lifestyle strategies and compensatory methods as needed documented as of this encounter Results * Imaging SI Joint Injection Bilateral (01203) (02/28/2024 11:27 AM CDT) Narrative [id number] - [...] meal(s). added in this encounter Care Teams Data Reduction Technician Relationship Specialty Start Date End Date Carl Strickland MD [address] [facility] [place] [address] PCP - General Internal Medicine 06/06/23 Leo Manzano MD [address] [facility] [address] [place] [address] Surgeon Vascular Surgery 05/16/23 documented as of this encounter
--- OUTSIDE RECORDS SUMMARY | 2024-05-30 06:27 | XMS_ITS | Encounter Summary ---
Author Organization [facility] Address [address] [place] [address] Phone Care Team Providers Care Control Tower Operator Name Role Phone Leo Manzano MD Unavailable [phone] Carl Strickland MD Primary Care Provider Reason for Visit * Reason Onset Date Comments PHV pt follow up 09/14/2023 Encounter Details Date Type Department Care Team (Late st Contact Info) Description 09/14/2023 Telephone [facility] [address] [facility] 5th [place] [address] [place] [address] Franci Arnold CMA PHV pt follow up Social History Tobacco Use Types Packs/Day Years Used Date Smoking Tobacco: Never Smokeless Tobacco: Never Alcohol Use Standard Drinks/Week Comments Not Currently 0 (1 standard drink = 0.6 oz pur e alcohol) [facility] Utilities Answer Date Recorded In the past 12 months has [employer], gas, oil, or water company threatened [...] How often do you attend jew or pentecostal serv ices? Patient declined 09/12/2023 Do you [...] in a usp (including now)? Patient declined 09/12/2023 Personal Safety Answer Date Recorded Have you ever been in or are you currently in a harmful physical or emotional relationship or is someone making you feel afraid or unsafe? Denies 09/05/2023 Sex and Gender Information Value Date Recorded Sex Assigned at Not on file Legal Sex Male 3:42 AM MIDDLE SCHOOL PRINCIPAL Gender Identity Not on file Sexual Orientation Straight 06/12/2023 11 :43 PM MIDDLE SCHOOL PRINCIPAL documented as of this encounter Miscellaneous Notes * Telephone Encounter - Franci Arnold CMA - 09/14/2023 4:20 PM CDT No PHV fu needed. Message sent by Dr. Chaudhary on 09/09/2023 at 7:02pm documented in this encounter Plan of Treatment Not on file documented as of this encounter Visit Diagnoses Not on filedocumented in this encounter Care Teams Control Tower Operator Relationship Specialty Start Date End Date Carl Strickland MD [address] [facility] 1 [place] [address] PCP - General Internal Medicine 06/06/23 Leo Manzano MD [address] [place] [address] Surgeon Vascular Surgery 05/16/23 documented as of this encounter
--- OUTSIDE RECORDS SUMMARY | 2024-05-30 06:27 | XMS_ITS | Encounter Summary ---
Author Organization [facility] Address [address] [place] [address] Phone Care Team Providers Care Offset Printing Pressmen Name Role Phone Leo Manzano MD Unavailable Carl Strickland MD Primary Care Provider Reason for Visit * Reason Comments Nephrolithiasis * Consultation (Routine) - Closed Specialty Diagnoses / Procedures Referred By Fernando alan Referred To Contact Urology Diagnoses Urinary retention Meron Parekh NP Phone: tel: fax: [facility] (All Locations) Referral ID Status Reason Start Date Expiration Date V isits Requested Visits Authorized [id number] Closed Specialty Services Required 05/16/2023 06/14/2024 1 1 Encounter Details Date Type Department Care Team (Late st Contact Info) Description 10/07/2023 10:00 AM CDT Office Visit [place] [facility] ([facility] - [facility] Urology [address] [facility] Advanced Medicine 11th [place] [address] [place] [address] Marcus Gamboa MD [address] [place], [place] [id number] Nephrolithiasis (Primary Dx); Urinary retention Social History Tobacco Use Types Packs/Day Years Used Date Smoking Tobacco: Never Smokeless Tobacco: Never Alcohol Use Standard Drinks/Week Comments Not Currently 0 (1 standard drink = 0.6 oz pur e alcohol) [facility] Utilities Answer Date Recorded [...] declined 10/02/2023 How often do you attend latter day or confucianist serv ices? Patient declined 10/02/2023 Do you belong to any clubs o r organizations such as latter day groups, unions, fraternal or athletic groups, or [...] or slept in a half-way (including now)? Patient declined 10/02/2023 Personal Safety Answer Date Recorded Have you ever been in or are you currently in a harmful physical or emotional relationship or is someone making you feel afraid or unsafe? Denies 10/04/2023 Sex and Gender Information Value Date Recorded Sex Assigned at Not on file Legal Sex Male 3:42 AM SHOPPER Gender Identity Not on file Sexual Orientation Straight 06/12/2023 11 :43 PM SHOPPER documented as of this encounter Ordered Prescriptions [...] you have any questions or concerns at [phone]. documented in this encounter Plan of Treatment Scheduled Orders Name Type Priority Associated Diagnoses Orde r Schedule Litholink 24Hr Urine Panel Lab Routine Nephrolithiasis Expected: 10/07/2023, Expires: 10/06/2024 documented as of this encounter Goals Goal Patient Goal Type Associated Problems Recent Progress Patient-Stated? Author CCM Chronic Pain Care Plan Chronic Care Management No change(05/16 2:51 PM SHOPPER) No Rita Landa RN Note: Problem: Chronic [...] AM CDT Performed at: ??01 - [facility] [address] ??[id number] Board Certified Music Therapist: Yanely Mayer PhD, Phone: ??[phone] Marcus Gamboa MD LAB URINE ORDERABLE S [...] 10/07/2023 documented in this encounter Care Teams Offset Printing Pressmen Relationship Specialty Start Date End Date Carl Strickland MD [address] [facility] 1 [place] [address] PCP - General Internal Medicine 06/06/23 Leo Manzano MD [address] [facility] [address] [place] [address] Surgeon Vascular Surgery 05/16/23 documented as of this encounter
--- OUTSIDE RECORDS SUMMARY | 2024-05-30 06:27 | XMS_ITS | Encounter Summary ---
Author Organization [facility] Address [address] [place] [address] Phone Care Team Providers Care Industrial Tech Instructor Name Role Phone Leo Manzano MD Unavailable [phone] Carl Strickland MD Primary Care Provider Encounter [...] Recorded In the past 12 months has [employer], gas, oil, or water [employer] threatened to shut off services in your home? Patient declined 10/02/2023 Social Connection and Isolation Panel [NHANES] A nswer Date Recorded In a typical week, how many times do you talk on the phone with family, friends, or neighbors? Patient declined 10/02/2023 How often do you get togethe r with friends or relatives? Patient declined 10/02/2023 How often do you attend lutheran or protestant serv ices? Patient declined 10/02/2023 [...] on file Legal Sex Male 3:42 AM HAT FINISHING MATERIALS PREPARER Gender Identity Not on file Sexual Orientation Straight 06/12/2023 11 :43 PM HAT FINISHING MATERIALS PREPARER documented as of this encounter Progress Notes [...] Chronic Care Management No change(05/16 2:51 PM HAT FINISHING MATERIALS PREPARER) No Rita Landa, BRIA Note: Problem: Chronic [...] on filedocumented in this encounter Care Teams Industrial Tech Instructor Relationship Specialty Start Date End Date Carl Strickland MD [address] [facility] 1 [place] [address] PCP - General Internal Medicine 06/06/23 Leo Manzano MD [address] [place] [address] Surgeon Vascular Surgery 05/16/23 documented as of this encounter
--- OUTSIDE RECORDS SUMMARY | 2024-05-30 06:27 | XMS_ITS | Encounter Summary ---
Author Organization [facility] Healthcare Address [address] [place] [address] Care Team Providers Care Supervisor Shipfitters Name Role Phone Leo Manzano MD Unavailable [phone] Carl Strickland MD Primary Care Provider Reason for Visit * Auth/Cert (Routine) Specialty Diagnoses / Procedures Referred By Contac t Referred To Contact Diagnoses Ureteral calculi Procedures na Referral ID Status Reason Start Date Expiration Date Visits Re quested Visits Authorized [id number] 1 1 Encounter Details Date Type Department Care Team (Late st Contact Info) Description 09/27/2023 4:47 PM CDT Anesthesia Event [facility] Operating Room [facility] [place] [address] Vandana Whitman MD [facility] [facility] [place] [address] Anesthesia Record Procedure Summary Procedure Name Responsible [...] Pe nis; 05/01/24 (Retired LDA, Removed/Completed by [facility] with LDA Utility); 1213 (Retired LDA, Removed/Completed by [facility] with LDA Utility) 09/27/23 1547 by Lisa [...] = 0.6 oz pur e alcohol) [facility] Utilities Answer Date Recorded In the past 12 months has [employer] electric, gas, oil, or water company threatened [...] declined 09/12/2023 How often do you attend christian or congregational serv ices? Patient declined 09/12/2023 Do you belong to any clubs o r organizations such as christian groups, unions, fraternal or athletic groups, or [...] on file Legal Sex Male 3:[address]OR Gender Identity Not on file Sexual Orientation Straight 06/12/2023 11 :[address] SUPERVISOR documented as of this encounter OR Notes * Anesthesia Postprocedure Evaluation - Diego Hankins MD - 09/27/2023 7:41 PM CDT Patient: Eriberto Chau Procedure Summary Date: 09/27/23 Room / Location: [facility] / [facility] OPERATING ROOM Anesthesia Start: 1646 Anesthesia Stop: [...] anesthesia Difficult airway: no Staff: Placed by: GROUND SYSTEMS ENGINEER: Sheryl Hebert CRNA Emergent airway documentation: Risks [...] calculi 09/27/2023 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[facility]) 09/06/2023 Back pain at L4-L5 level 08/23/2023 PFO (patent foramen ovale) 07/05/2023 Ureteral stone 07/04/2023 Abdominal pain 07/04/2023 Other chronic pain 06/24/2023 Pseudoaneurysm following procedure ([facility] ([facility]) 06/24/2023 Infrarenal abdominal aortic aneurysm, without rupture ([facility]) 06/13/2023 Polysubstance abuse ([facility] ([facility]) 06/10/2023 Moderate malnutrition ([facility] ([facility]) 06/09/2023 Dissection of abdominal aorta ([facility] ([facility]) 06/03/2023 Urinary retention 05/16/2023 Epistaxis 05/13/2023 Pneumonia 05/13/2023 HTN (hypertension) 05/13/2023 Dissection of thoracoabdominal aorta ([facility] ([facility]) 05/02/2023 Dissection of aorta, unspecified portion of aorta ([facility]) 05/01/2023 Past Medical History: Diagnosis Date Abdominal pain Anxiety Depression Hypertension Kidney stones Memory loss Past Surgical History: Procedure Laterality Date ABDOMINAL AORTIC ANEURYSM REPAIR Allergies Allergen Reactions Lisinopril Angioedema Amoxicillin Hives Med List Status: Pharmacy Complete Set By: Priscilla Pagan [facility] at 09/27/2023 1:59 PM Taking? Last Dose [...] Medication protocol when under care of a GROUND SYSTEMS ENGINEER Planned anesthesia: General Team communication plan: LMA Induction: Induction: intravenous. Postoperative Plan: Postoperative administration opioids intended. No postoperative mechanical ventilation intended. Patient's planned disposition post procedure is Floor. Informed Consent: Discussed plan with GROUND SYSTEMS ENGINEER. Anesthesia plan and risks discussed with patient. [...] Chronic Care Management No change(05/16 2:[address] SUPERVISOR) No Rita Landa RN Note: Problem: Chronic Pain Goals: 1. Minimize further functional decline 2. Maximize quality of life 3. Control pain Strategies: - Activity/exercise program recommendation - Conservative stepwise pain medicine strategy with multi-disciplinary approach - Recommend healthy lifestyle strategies and compensatory methods as needed documented as of this encounter Procedures Procedure Name Priority Date/Time Associated Diagnosis Comments KS AN PROCEDURE PLACEHOLDER Routine 09/27/2023 4:53 PM CDT KS AN ELECTIVE SUPRAGLOTTIC AIRWAY Routine 09/27/2023 4:53 PM CDT documented in this encounter Results * KS AN ELECTIVE SUPRAGLOTTIC AIRWAY, KS AN PROCEDURE PLACEHOLDER (09/27/2023 4:53 PM CDT) Narrative Sheryl Hebert CRNA - 09/27/2023 4:53 PM CDT Sheryl Hebert CRNA ? 09/27/2023 ??4:53 PM Airway Patient location: OR Urgency: elective Indications for airway management: anesthesia Difficult airway: no Staff: Placed by: GROUND SYSTEMS ENGINEER: Sheryl Hebert CRNA Emergent airway documentation: Risks [...] mg documented in this encounter Care Teams Supervisor Shipfitters Relationship Specialty Start Date End Date Carl Strickland MD [address] [facility] [address] [place] [address] PCP - General Internal Medicine 06/06/23 Leo Manzano MD [address] [facility] [id number] [place] [address] Surgeon Vascular Surgery 05/16/23 documented as of this encounter
--- OUTSIDE RECORDS SUMMARY | 2024-05-30 06:27 | XMS_ITS | Encounter Summary ---
Author Organization [facility] Healthcare Address [address] [facility] [place] [address] Care Team Providers Care Marketing Underwriter Name Role Phone Leo Manzano MD Unavailable [phone] Carl Strickland MD Primary Care Provider Reason for Visit * Reason Onset Date Comments PMC Preprocedure 02/24/2024 Encounter Details Date Type Department Care Team (Late st Contact Info) Description 02/24/[address] [facility] [address] [facility] [address] [place] [address] Adrianne Adams MD PhD [address] [facility] [address] [place] [address] [facility] Preprocedure Social History Tobacco Use Types Packs/Day Years Used Date Smoking Tobacco: Never Smokeless Tobacco: Never Alcohol Use Standard Drinks/Week Comments Not Currently 0 (1 standard drink = 0.6 oz pur e alcohol) [facility] Utilities Answer Date Recorded In [...] declined 10/02/2023 How often do you attend moravian or restoration serv ices? Patient declined 10/02/2023 [...] on file Legal Sex Male 3:42 AM PBX WIRE CHIEF Gender Identity Not on file Sexual Orientation Straight 06/12/2023 11 :43 PM PBX WIRE CHIEF documented as of this encounter Miscellaneous Notes * Telephone Encounter - Naomi Alexander RN - 02/24/2024 9:07 AM CDT Portal precall sent documented in this encounter Plan of Treatment Not on file documented as of this encounter Goals Goal Patient Goal Type Associated Problems Recent Progress Patient-Stated? Author CCM Chronic Pain Care Plan Chronic Care Management No change(05/16 2:51 PM PBX WIRE CHIEF) No Rita Landa, BRIA Note: Problem: Chronic Pain Goals: 1. Minimize further functional decline 2. Maximize quality of life 3. Control pain Strategies: - Activity/exercise program recommendation - Conservative stepwise pain medicine strategy with multi-disciplinary approach - Recommend healthy lifestyle strategies and compensatory methods as needed documented as of this encounter Visit Diagnoses Not on filedocumented in this encounter Care Teams Marketing Underwriter Relationship Specialty Start Date End Date Carl Strickland MD [address] [facility] [address] [place] [address] PCP - General Internal Medicine 06/06/23 Leo Manzano MD [address] [facility] [id number] [place] [address] Surgeon Vascular Surgery 05/16/23 documented as of this encounter
--- OUTSIDE RECORDS SUMMARY | 2024-05-30 06:27 | XMS_ITS | Encounter Summary ---
Author Organization [facility] Healthcare Address [address] [facility] [place] [address] Care Team Providers Care Brake Lining Finisher Name Role Phone Leo Manzano MD Unavailable [phone] Carl Strickland MD Primary Care Provider Reason for Visit * Reason Comments Flank Pain * Auth/Cert (Routine) Specialty Diagnoses / Procedures Referred By Contac t Referred To Contact Diagnoses Ureteral calculi Procedures na Referral ID Status Reason Start Date Expiration Date Visits Re quested Visits Authorized [id number] 1 1 Encounter Details Date Type Department Care Team (Late st Contact Info) Description 09/27/2023 4:15 PM CDT - 09/27/2023 5:[address] [facility] Operating Room [address] [place] [id number] Marcus Glass MD [address] [place] [address] CYSTOSCOPY RETROGRADE PYELOGRAM - RIGHT URETEROSCOPY, LASER , INSERTION RIGHT URETERAL STENT, BASKET STONE EXTRACTION Surgery Details Date/Time Status Location OR Service Patient Class Case Class Case Type Trauma Case? 09/27/2023 4:15 PM Posted [facility] OPERATING ROOM CYSTO Urology Inpatient Urgent - [...] Recorded In the past 12 months has [employer], gas, oil, or water [employer] threatened to shut off services in your home? Patient declined 09/12/2023 Social Connection and Isolation Panel [NHANES] A nswer Date Recorded In a typical week, how many times do you talk on the phone with family, friends, or neighbors? Patient declined 09/12/2023 How often do you get togethe r with friends or relatives? Patient declined 09/12/2023 How often do you attend scientologist or adventism serv ices? Patient declined 09/12/2023 Do you [...] in a half-way (including now)? Patient declined 09/12/2023 Personal Safety Answer Date Recorded Have you ever been in or are you currently in a harmful physical or emotional relationship or is someone making you feel afraid or unsafe? Denies 09/27/2023 Sex and Gender Information Value Date Recorded Sex Assigned at Not on file Legal Sex Male 3:42 AM AUTO PORTER Gender Identity Not on file Sexual Orientation Straight 06/12/2023 11 :43 PM AUTO PORTER documented as of this encounter Last Filed [...] 09/27/2023 Primary Care Physician: Carl Strickland MD [phone] SUBJECTIVE: 33-year-old male with history of aortic [...] CTA chest abdomen pelvis dated 09/26/2023 from [facility], CT dated 08/23/2023 from [facility] FINDINGS: Mild bibasilar atelectasis. Partially visualized aortic stent graft extending from the superior [id number]-ny-swus in the thoracic aorta to the distal [...] no answer Will notify house security and housekeeping cleaner Principal Problem: Ureteral calculi Full Code The [...] chronic pain 06/24/2023 Pseudoaneurysm following procedure (CMS/HCC) ([facility]) 06/24/2023 Infrarenal abdominal aortic aneurysm, without rupture ([facility]) 06/13/2023 Polysubstance abuse (CMS/HCC) ([facility]) 06/10/2023 Moderate malnutrition (CMS/HCC) ([facility]) 06/09/2023 Dissection of abdominal aorta (CMS/HCC) ([facility]) 06/03/2023 Urinary retention 05/16/2023 Epistaxis 05/13/2023 Pneumonia 05/13/2023 HTN (hypertension) 05/13/2023 Dissection of thoracoabdominal aorta (CMS/HCC) ([facility]) 05/02/2023 Dissection of aorta, unspecified portion of aorta ([facility]) 05/01/2023 Past Medical History: Diagnosis Date Abdominal pain Anxiety Depression Hypertension Kidney stones Memory loss Past Surgical History: Procedure Laterality Date ABDOMINAL AORTIC ANEURYSM REPAIR Allergies Allergen Reactions Lisinopril Angioedema Amoxicillin Hives Med List Status: Pharmacy Complete Set By: Priscilla Pagan [facility] at 09/27/2023 1:59 PM Taking? Last [...] Medication protocol when under care of a OUTBOARD MOTOR TESTER Planned anesthesia: General Team communication plan: LMA Induction: Induction: intravenous. Postoperative Plan: Postoperative administration opioids intended. No postoperative mechanical ventilation intended. Patient's planned disposition post procedure is Floor. Informed Consent: Discussed plan with OUTBOARD MOTOR TESTER. Anesthesia plan and risks discussed with patient. [...] Glass MD - 09/27/2023 6:16 PM CDT [facility] Urology Consultation Reason for Consult: Right ureteral [...] function postoperatively Will follow Marcus Glass MD [facility] Urology documented in this encounter ED Notes [...] Hypokalemia 10/02/2023 ??? ANGI (acute kidney injury) ([facility]) 10/02/2023 ??? Syncope 10/02/2023 ??? Ureteral calculi 09/27/2023 ??? 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 Back pain at L4-L5 level 08/23/2023 ??? PFO (patent foramen ovale) 07/05/2023 ??? Ureteral stone 07/04/2023 ??? Abdominal pain 07/04/2023 ??? Other chronic pain 06/24/2023 ??? Pseudoaneurysm following procedure ([facility]) ([facility]) 06/24/2023 ??? Infrarenal abdominal aortic aneurysm, without rupture ([facility]) 06/13/2023 ??? Polysubstance abuse (CMS/HCC) (HCC) 06/10/2023 ??? Moderate malnutrition (CMS/HCC) ([facility]) 06/09/2023 ??? Dissection of abdominal aorta (CMS/HCC) ([facility]) 06/03/2023 ??? Urinary retention 05/16/2023 ??? Epistaxis 05/13/2023 ??? Pneumonia 05/13/2023 ??? HTN (hypertension) 05/13/2023 ??? Dissection of thoracoabdominal aorta (CMS/HCC) ([facility]) 05/02/2023 ??? Dissection of aorta, unspecified portion of aorta ([facility]) 05/01/2023 Past Medical History: Diagnosis Date ??? [...] AM CDT States he was seen at [facility] yesterday and was told he has a 7mm stone in right kidney. States he was told he needs a stent placed, but [facility] does not have urology. Endorses dark urine, [...] started the case by inserting a 22 Canadian cystoscope atraumatically into the bladder. Cystoscopydid not [...] was advanced into the renal pelvis. Five Canadian open-ended catheter was advanced over the wire and retrograde pyelogram obtained. This showed stone in the proximal ureter with mild upstream hydronephrosis. The wire was replaced. An 11/13 Canadian ureteral access sheath was advanced over the [...] Time Provider Department Center 10/07/2023 9:00 AM [facility] [id number] BJN US [facility] Main IM 10/07/2023 10:00 AM Marcus Gamboa MD URO CAM 11C [facility] 10/14/2023 10:20 AM Marcus Gamboa MD URO CAM 11C [place] 11/14/2023 1:30 PM Amanda Macias MD CAM PAIN [facility] CAM 11/23/2023 3:30 PM Joaquín Abarca MD CAR CAM 8B Cardiology 02/15/2024 12:00 PM [facility] [id number] [facility] CT [id number] 02/15/2024 1:00 PM Leo Manzano MD [facility] [id number] [place]ZA documented in [...] Chronic Care Management No change(05/16 2:51 PM AUTO PORTER) No Rita Landa, BRIA Note: Problem: Chronic [...] 1 Hour (09/27/2023 5:57 PM CDT) Narrative [facility] - 09/27/2023 5:57 PM CDT The images from this study are not interpreted by Radiology. ??Please refer to the physician's procedure / OR operative note. us Marcus Glass MD IMG FLUOROSCOPY PROCED URES Final Result [facility] * Stone analysis (09/27/2023 5:37 PM CDT) Stone analysis Not Reported [facility] Lab Source, Kid Stone Kidney [facility] Interp, Kid stone analysis See Footnote [facility] Comment:RESULT: 100% Calcium oxalate monohydrate. COMMENT See Footnote [facility] Comment: For stones containing calcium oxalate, calcium phosphate, and/or uric acid, a 24 hr urinary supersaturation test may help detect underlying risk factors for this type of stone formation and provide guidance for a stone prevention strategy. ADDITIONAL INFORMATION This test was developed and its performance characteristics determined by [facility] in a manner consistent with CLIA requirements. This test has not been cleared or approved by the U.S. Food and Drug Administration. Test Performed by: [facility] [place] [address] Hook Up Driver: Chris Perez M.D. Ph.D.; CLIA# [id number] Stone 09/27/2023 5:37 PM CDT 09/28/2023 8:23 AM CDT us Gricelda Atkins MD LAB URINE ORDERABLES Final Result Performing Organization Address [facility] Co de Phone Number [facility] [address] [place] [address] [facility] Lab * (ABNORMAL) Urinalysis, microscopic only (09/27/2023 2:29 PM CDT) WBC, ur 0-5 0 - 5 /HPF RBC, ur 3-5(A) 0 - 2 /HPF [facility] Epithelial cells, squamous, ur 1-5 0 - 5 /HPF [facility] Mucous, ur Present(A) [facility] Hyaline casts, ur 1-5 0 - 10 /LPF [facility] Culture Reflex Comment Reflex conditions for urine culture (WBC >10) not met. [facility] Urine 09/27/2023 2:29 PM CDT 09/27/2023 2:39 PM CDT us Heber Arroyo MD LAB URINE ORDERABLES Final Result [facility] [address] [place] [address] * (ABNORMAL) Drugs of Abuse Screen, Urine [...] 2022. Barbiturates, ur Not Detected CutOff 200ng/mL [facility] Comment: Interpretive Data - Barbiturates: ??Samples containing greater than 200 ng/mL secobarbital or other cross-reacting barbiturate compounds are reported as positive. ??False positive and false negative results are possible. Confirmatory testing required for definitive results. Current Interpretive Data was last reviewed 2022. Benzodiazepines, ur Not Detected CutOff 100ng/mL [facility] Comment: Interpretive Data - Benzodiazepines: ??Samples containing greater than 100 ng/mL nordiazepam or other cross-reacting compounds are reported as positive. False positive and false negative results are possible. Confirmatory testing required for definitive results. Current Interpretive Data was last reviewed 2022. Cannabinoids, ur Screen Positive, presumptive (A) CutOff 50 ng/mL [facility] Comment: Interpretive Data - Cannabinoids: ??Samples containing greater than 50 ng/mL delta-9 THC -COOH or other cross-reacting compounds are reported as positive. ??False positive and false negative results are possible. ??Confirmatory testing required for definitive results. Current Interpretive Data was last reviewed 2022. Cocaine, ur Not Detected CutOff 150ng/mL [facility] Comment: Interpretive Data - Cocaine: ??Samples containing greater than 150 ng/mL benzoylecgonine or other cross-reacting compounds are reported as positive. False positive and false negative results are possible. Confirmatory testing required for definitive results. Current Interpretive Data was last reviewed 2022. Fentanyl, Ur Not Detected CutOff 5 ng/mL [facility] Comment: Interpretive Data - Fentanyl: ?? Samples containing greater than 5 ng/mL norfentanyl, fentanyl, or other cross-reacting fentanyl compounds are reported as positive. False positive and false negative results are possible. Confirmatory testing required for definitive results. Current Interpretive Data was last reviewed 2023. Methadone, ur Not Detected CutOff 300ng/mL [facility] Comment: Interpretive Data - Methadone: ??Samples containing greater than 300 ng/mL d,l-methadone or other cross-reacting compounds are reported as positive. ??False positive and false negative results are possible. Confirmatory testing required for definitive results. Current Interpretive Data was last reviewed 2022. Opiates, ur Screen Positive, presumptive (A) CutOff 300ng/mL [facility] Comment: Interpretive Data - Opiates: ??Samples containing greater than 300 ng/mL morphine or other cross-reacting compounds are reported as positive. ??False positive and false negative results are possible. Confirmatory testing required for definitive results. Current Interpretive Data was last reviewed 2022. Oxycodone, ur Screen Positive, presumptive (A) CutOff 100ng/mL [facility] Comment: Interpretive Data - Oxycodone: ??Samples containing greater than 100 ng/mL oxycodone or other cross-reacting compounds are reported as ??positive. ??False positive and false negative results are possible. Confirmatory testing required for definitive results. Current Interpretive Data was last reviewed 2022. Phencyclidine, ur Not Detected CutOff 25 ng/mL [facility] Comment: Interpretive Data - Phencyclidine: ??Samples containing greater than 25 ng/mL phencyclidine or other cross-reacting compounds are reported as positive. ??False positive and false negative results are possible. Confirmatory testing required for definitive results. Current Interpretive Data was last reviewed 2022. Urine Creatinine 173 mg/dL [facility] Comment: Interpretive Data Urine Creatinine: < 10 mg/dL is extremely dilute = or > 10 but < 20 mg/dL is dilute = or > 20 mg/dL is normal Current Interpretive Data was last revised on 2017. Urine 09/27/2023 2:29 PM CDT 09/27/2023 2:40 PM CDT Narrative [facility] - 09/27/2023 3:12 PM CDT Drug of Abuse screening is performed by immunoassay for medical purposes only. ??This is not to be used for Pain Management purposes. us Heber Arroyo MD LAB URINE ORDERABLES Final Result [facility] [address] [place] [address] * (ABNORMAL) Urinalysis reflex to microscopic and culture Urine (09/27/2023 2:29 PM CDT) Color, ur Yellow Yellow Clarity, ur Clear Clear [facility] Specific gravity, ur 1.024 1.003 - 1.030 [facility] pH, urine 6.0 [facility] Comment: Interpretive Data ? Urine pH is affected by diet, medications, systemic acid-base disturbances, and renal tubular function. ??pH may affect urinary stone formation. ??For example, urine pH below 6.0 may help reduce the tendency for calcium phosphate stones and pH greater than 6.0 may reduce the tendency for uric acid stone formation. Source: [facility] [employer] Current Interpretive Data was last revised on 2017 Protein, ur ql 1+(A) Negative [facility] Glucose, ur ql Negative Negative [facility] Ketones, ur Negative Negative [facility] Bilirubin, ur Negative Negative [facility] Blood, ur Negative Negative [facility] Urobilinogen, ur <2.0 <2.0 mg/dL [facility] Nitrite, ur Negative Negative [facility] Leukocyte esterase, ur Negative Negative [facility] UA reflex comment Reflex to microscopic UA will be performed. [facility] Urine 09/27/2023 2:29 PM CDT 09/27/2023 2:40 PM CDT us Heber Arroyo MD LAB MICROBIOLOGY - GENERAL ORDERABLES Final Result [facility] [address] [place] [address] * CT Abdomen Pelvis WO Contrast (09/27/2023 [...] CTA chest abdomen pelvis dated 09/26/2023 from [facility], CT dated 08/23/2023 from [facility] FINDINGS: ?? Mild bibasilar atelectasis. Partially visualized aortic stent graft extending from the superior jijph-gd-wmck in the thoracic aorta to the distal [...] CTA chest abdomen pelvis dated 09/26/2023 from [facility], CT dated 08/23/2023 from [facility] FINDINGS: Mild bibasilar atelectasis. Partially visualized aortic stent graft extending from the superior jlblk-ed-pfnh in the thoracic aorta to the distal [...] Arroyo MD LAB BLOOD ORDERABLES Final Result [facility] [address] [place] [address] * (ABNORMAL) Differential, auto (09/27/2023 12:16 PM CDT) Neutrophil abs 9.2(H) 1.5 - 6.5 K/cumm Imm gran abs 0.1 0.0 - 0.1 K/cumm [facility] Lymphocyte abs 1.0 0.8 - 3.3 K/cumm [facility] Monocyte abs 1.3(H) 0.2 - 0.8 K/cumm [facility] Eosinophil abs 0.0 0.0 - 0.5 K/cumm [facility] Basophil abs 0.1 0.0 - 0.1 K/cumm [facility] Neutrophil pct 78.9 % [facility] Comment: Interpretive Data Percent cell count reference ranges are not reported, since discordance with absolute values may lead to misinterpretation of CBC data. Current Interpretive Data was last revised on 2017. Imm gran pct 0.6 % [facility] Comment: Interpretive Data Percent cell count reference ranges are not reported, since discordance with absolute values may lead to misinterpretation of CBC data. Current Interpretive Data was last revised on 2017. Lymphocyte pct 8.9 % [facility] Comment: Interpretive Data Percent cell count reference ranges are not reported, since discordance with absolute values may lead to misinterpretation of CBC data. Current Interpretive Data was last revised on 2017. Monocyte pct 10.9 % [facility] Comment: Interpretive Data Percent cell count reference ranges are not reported, since discordance with absolute values may lead to misinterpretation of CBC data. Current Interpretive Data was last revised on 2017. Eosinophil pct 0.3 % [facility] Comment: Interpretive Data Percent cell count reference ranges are not reported, since discordance with absolute values may lead to misinterpretation of CBC data. Current Interpretive Data was last revised on 2017. Basophil pct 0.4 % [facility] Comment: Interpretive Data Percent cell count reference ranges are not reported, since discordance with absolute values may lead to misinterpretation of CBC data. Current Interpretive Data was last revised on 2017. Blood 09/27/2023 12:1 6 PM CDT 09/27/2023 12:30 PM CDT us Heber Arroyo MD LAB BLOOD ORDERABLES Final Result [facility] [address] [place] [address] * (ABNORMAL) CBC with auto differential (09/27/2023 12:16 PM CDT) WBC 11.7(H) 3.8 - 9.9 K/cumm Hgb 11.7(L) 13.0 - 17.5 g/dL [facility] Hct 36.9(L) 38.9 - 50.3 % [facility] Plt 267 150 - 400 K/cumm [facility] MPV 9.1 9.1 - 12.3 fL [facility] RBC 4.01(L) 4.30 - 5.80 M/cumm [facility] MCV 92.0 81.3 - 96.4 fL [facility] MCH 29.2 27.1 - 33.3 pg [facility] MCHC 31.7(L) 32.3 - 35.7 g/dL [facility] RDW CV 15.8(H) 11.1 - 14.9 % [facility] RDW SD 53.6(H) 35.7 - 48.1 fL [facility] NRBC abs 0.00 0.00 - 0.01 K/cumm [facility] Blood (Blood, Venous) 09/27/2023 12:16 PM CDT 09/27/2023 12:30 PM CDT us Heber Arroyo MD LAB BLOOD ORDERABLES Final Result [facility] [address] Department [place] [address] * (ABNORMAL) Basic metabolic panel (09/27/2023 12:16 PM CDT) Sodium 139 135 - 145 mmol/L Potassium, pl 4.1 3.3 - 4.9 mmol/L [facility] Chloride 105 97 - 110 mmol/L [facility] CO2 22 22 - 32 mmol/L [facility] Anion gap 12 2 - 15 mmol/L [facility] BUN 25 6 - 25 mg/dL [facility] Creatinine 2.12(H) 0.80 - 1.30 mg/dL [facility] Glucose 96 70 - 199 mg/dL [facility] Comment: Interpretive Data Fasting glucose >/= 126 [...] 2022. Calcium 9.2 8.5 - 10.3 mg/dL [facility] Blood 09/27/2023 12:1 6 PM CDT 09/27/2023 12:31 PM CDT us Heber Arroyo MD LAB BLOOD ORDERABLES Final Result [facility] [address] Department [place] [address] documented in this encounter Visit Diagnoses Not [...] Glass MD - Comment: 3,000 prn for [id number] prn on sterile field) Linked Groups Order [...] 09/27/2023 documented in this encounter Care Teams Brake Lining Finisher Relationship Specialty Start Date End Date Carl Strickland MD [address] [facility] [address] [place] [address] PCP - General Internal Medicine 06/06/23 Leo Manzano MD [address] [facility] [id number] [place] [address] Surgeon Vascular Surgery 05/16/23 documented as of this encounter
--- OUTSIDE RECORDS SUMMARY | 2024-05-30 06:27 | XMS_ITS | Encounter Summary ---
Author Organization [facility] Address [address] [place] [address] Care Team Providers Care Buffer Machine Name Role Phone Leo Manzano MD Unavailable [phone] Carl Strickland MD Primary Care Provider Reason for Referral * Consultation (Routine) - Pending Review Specialty Diagnoses / Procedures Referred By Contac t Referred To Contact Pain Management Diagnoses [place] [address] [place] [address] [address] [place] [address] Phone: tel: fax: [address] [phone] Referral ID Status Reason Start Date Expiration Date Visits Requested Visits Authorized [id number] Pending Review Specialty Services Required 07/14/2023 08/12/2024 1 1 Question Answer Please select the performing region: [facility] [152] # of visits: 1 Reason for Visit * Reason Comments Initial Consult * Consultation (Routine) - Pending Review Specialty Diagnoses / Procedures Referred By Contac t Referred To Contact Pain Management Diagnoses Other [place] [address] [place] [address] [address] [place] [address] Phone: tel: fax: [facility] [address] [place] [address] Referral ID Status Reason Start Date Expiration Date Visits Requested Visits Authorized [id number] Pending Review Specialty Services Required 07/14/2023 08/12/2024 1 1 Encounter Details Date Type Department Care Team (Latest Contact Info) Description 09/27/2023 9:10 AM CDT - 09/27/2023 11:59 PM CDT Hospital Encounter [facility] [address] [facility] [address] [place] [address] Amanda Macias MD [address] [facility] [address] [place] [address] Hilaria Blankenship MD PhD [address] [facility] [address] [facility] [phone] [place] [address] Neuropathic pain (Primary Dx); Other chronic pain Discharge Disposition: Discharge to home or self care Social History Tobacco Use Types Packs/Day Years Used Date Smoking Tobacco: Never Smokeless Tobacco: Never Alcohol Use Standard Drinks/Week Comments Not Currently 0 (1 standard drink = 0.6 oz pur e alcohol) [facility] Utilities Answer Date Recorded In the past 12 months has [employer], gas, oil, or water [employer] threatened to shut off services in your home? Patient declined 09/12/2023 Social Connection and Isolation Panel [NHANES] A nswer Date Recorded In a typical week, how many times do you talk on the phone with family, friends, or neighbors? Patient declined 09/12/2023 How often do you get togethe r with friends or relatives? Patient declined 09/12/2023 How often do you attend amish or episcopal serv ices? Patient declined 09/12/2023 Do you [...] a care home (including now)? Patient declined 09/12/2023 Personal Safety Answer Date Recorded Have you ever been in or are you currently in a harmful physical or emotional relationship or is someone making you feel afraid or unsafe? 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 ([phone]) [] Other: Behavior Medicine [] Pain Psychologist, [facility] Please call to schedule appointment [phone] or [phone] Diagnostic Test(s): May get Radiographs performed in Radiation/X-Ray 6th floor, [address]. [] Please call to schedule MRI or CT scan at [phone] [] Please call to schedule EMG at [phone] EDUCATION provided on the following: [] Spinal Cord Stimulator Education and DVD. Vendor: FOLLOW UP APPOINTMENTS: [] Return as needed [] Follow up appointment: We will contact you the next business day to obtain: [] An update on your condition [] Your Pain diary scores [] Procedure at your next visit : INSTRUCTIONS before your next procedure: [] See [facility] Pre-Procedure Information Sheet [] Do not eat or drink for six (6) hours before the time/date of the procedure. [] Inquire with your prescribing provider if ok to hold blood thinner for ( ) days before procedure. [] Blood work required 2 hours before procedure: [] Grinder Set Up Operator Thread Tool needed for next procedure [] Pre Procedure instructions will be sent through Wattpad or by phone two working days prior to procedure. *Need help with Wattpad? Call [phone]. Patient provided information and repeated back with understanding. If you need to reach us: For any questions about your procedure, please call the Pain Management Center [phone] (M-F) (8am-4pm) If you need urgent attention after 5 pm and weekends: Call the [facility] Sash Finisher at [phone] and ask for the Pain Service doctor computer lab para professional. * Attachments The following attachments cannot be sent through Care Everywhere. * Pregabalin (By mouth) (Azeri) documented in this encounter Medications at Time [...] ED. He is planning to go to [facility] today for further evaluation and possible surgical [...] loading positive bilaterally SI joint tenderness, TANJA, [place]'s, Compression tests positive bilaterally Hip tenderness: negative [...] other specialty referrals: Patient to go to [facility] ED to be evaluated for abdominal pain and nephrolithiasis with need for possible surgery. Other modalities (including implants) None at this time Follow ups: 6-8 weeks for reevaluation of regimen. Amanda Macias MD Fellow, Pain Management [facility], [facility] Cosigned by Hilaria Blankenship [...] Chronic Care Management No change(05/16 2:51 PM VETERINARY PATHOLOGIST) No Rita Landa RN Note: Problem: Chronic [...] 09/27/2023 added in this encounter Care Teams Buffer Machine Relationship Specialty Start Date End Date Carl Strickland MD [address] [facility] [address] [place] [address] PCP - General Internal Medicine 06/06/23 Loe Manzano MD [id number] [place] [address] Surgeon Vascular Surgery 05/16/23 documented as of this encounter
--- OUTSIDE RECORDS SUMMARY | 2024-05-30 06:27 | XMS_ITS | Encounter Summary ---
Author Organization [facility] Healthcare Address [address] [place] [address] Care Team Providers Care Nut Threader Name Role Phone Leo Manzano MD Unavailable [phone] Carl Strickland MD Primary Care Provider Reason for Visit * Reason Comments Post-op Problem Blood in Urine * Auth/Cert (Routine) Specialty Diagnoses / Procedures Referred By Contac t Referred To Contact Diagnoses Pyelonephritis Procedures NA Referral ID Status Reason Start Date Expiration Date Visits Re quested Visits Authorized [id number] 1 1 Encounter Details Date Type Department Care Team (Late st Contact Info) Description 10/04/2023 7:30 AM CDT - 10/04/2023 8:55 AM CDT Surgery [facility] Operating Room [address] [place] [id number] Otoniel Landa MD [address] [place] [address] CYSTOSCOPY RETROGRADE PYELOGRAM - INSERTION URETERAL STENT Surgery Details Date/Time Status Location OR Service Patient Class Case Class Case Type Trauma Case? 10/04/2023 7:30 AM Posted [facility] OPERATING ROOM CYSTO Urology Emergency Urgent [...] In the past 12 months has e [employer], gas, oil, or water [employer] threatened to shut off services in your home? Patient declined 10/02/2023 Social Connection and Isolation Panel [NHANES] A nswer Date Recorded In a typical week, how many times do you talk on the phone with family, friends, or neighbors? Patient declined 10/02/2023 How often do you get togethe r with friends or relatives? Patient declined 10/02/2023 How often do you attend jainism or yazdanism serv ices? 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 providers found Primary Care Physician at Discharge: Carl Strickland MD [phone] Admission Date: 10/02/2023 Discharge Date/time: 10/04/2023 Admission Location: [facility] Hospital LOS - LOS: 2 days [...] PCP Dr. Torres office will call to [facility] uro follow up Discharge Details [...] Your Medications These medications were sent to [facility]/pharmacy #[id number] - [place], [place] - [address] [facility] [address] [facility] [address] cefdinir 300 mg capsule HYDROcodone-acetaminophen 5-325 mg [...] Time Provider Department Center 10/07/2023 9:00 AM [facility] [id number] BJN US BJ Main IMG 10/07/2023 10:00 AM Marcus Gamboa MD URO CAM 11C CABRAL 10/14/2023 10:20 AM Marcus Gamboa MD URO CAM 11C CABRAL 11/14/2023 1:30 PM Amanda Macias MD CAM PAIN [facility] 11/23/2023 3:30 PM Joaquín Abarca MD CAR CAM 8B Cardiology 02/15/2024 12:00 PM [facility] [id number] [facility] CT BJWCHMainIMG 02/15/2024 1:00 PM Leo Manzano MD [facility] [id number] CABRAL Please schedule an appointment with the following provider(s): No follow-up provider specified. ANCILLARY INFORMATION Other Procedures & Diagnostic Tests: Transthoracic Echo (TTE) Complete W Doppler/CF Result Date: 10/03/[address] [address] ECHOCARDIOGRAM Patient Name: ERIBERTO BANGURA I : 1990 Study Date: 10/03/2023 2:55:30 PM Gender: M Tech: Location: [address] Ref Provider: RADHA DIXON Height(Cm): 175 [...] hypertrophy. Electronically Signed By: Deandre Meza MD, [facility] 2023-10-03 16:50:[address] Abdomen Pelvis W [...] 15 27* CREATININE mg/dL 1.56* 1.15 1.70* LLB-SDK-FCBYXUH mL/min/1.73 m2 61 87 55* GLUCOSE mg/dL [...] GLUCOSE 93 10/02/2023 Implant: Implants Graft [employer] Stent Graft Aortic Covered Tag [id number] Eptfe Nitinol [id number] - [id number] - [id number] - Implanted Aorta Inventory item: [employer] Stent Graft Aortic Covered Tag [id number] Eptfe Nitinol [id number] Model/Cat number: [id number] Serial number: [id number] Syruper: [employer] Device identifier: [id number] Device identifier type: GS1 As of 05/02/2023 Status: Implanted Stent [employer] Stent Graft Thoracic Side Branch Tag [id number] Eptfe Nitinol [id number] - [id number] - [id number] - Implanted (Left) Subclavian Inventory item: [employer] Stent Graft Thoracic Side Branch Tag [id number] Eptfe Nitinol [id number] Model/Cat number: [id number] Serial number: [id number] Syruper: [employer] Size: 16mm side branch Device identifier: [id number] Device identifier type: GS1 As of 05/02/2023 Status: Implanted [employer] Graft Stent Lostine Tag L20cm Od37mm Thoracic Active Control [id number] - [id number] - Implanted Descending Thoracic Aorta Inventory item: [employer] Graft Stent [place]ine Tag L20cm Od37mm Thoracic Active Control [id number] Model/Cat number: [id number] Serial number: [id number] Syruper: [employer] Device identifier: [id number] Device identifier type: GS1 As of 06/05/2023 Status: Implanted [employer] Zenith 36mm 20-30mm 16mm 180mm 9 Dissection Introducer Sheath [id number] - [id number] Implanted Descending Thoracic Aorta Inventory item: [employer] ZENITH 36MM 20-30MM 16MM 180MM 9 DISSECTION INTRODUCER SHEATH [id number] Model/Cat number: [id number] Syruper: [employer] Lot number: [id number] Device identifier: [id number] Device identifier type: GS1 As of 06/05/2023 Status: Implanted Vascular Closure Device [employer] Device Clsr Perclose Prostyle Sut-Mediatd Closure-Repair Sys 32128-21 - [id number] Implanted (Left) Common Femoral Artery Inventory item: KELLER [employer] CLSR PERCLOSE PROSTYLE SUT-MEDIATD CLOSURE-REPAIR SYS 32807-46 Model/Cat number: [id number] Syruper: [employer] Lot number: [id number] Device identifier: [id number] Device identifier type: GS1 As of 05/02/2023 Status: Implanted Type Not Specified [employer] Device Clsr Perclose Prostyle Sut-Mediatd Closure-Repair Sys 00822-82 - [id number] Implanted (Left) Groin Inventory item: [employer] CLSR PERCLOSE PROSTYLE SUT-MEDIATD CLOSURE-REPAIR SYS 22540-24 Model/Cat number: [id number] Syruper: [employer] Lot number: [id number] Device identifier: [id number] Device identifier type: GS1 As of 06/05/2023 Status: Implanted [employer] Device Clsr Perclose Prostyle Sut-Mediatd Closure-Repair Sys 30047-89 - [id number] Implanted (Left) Groin Inventory item: KELL[employer] CLSR PERCLOSE PROSTYLE SUT-MEDIATD CLOSURE-REPAIR SYS 52244-77 Model/Cat number: [id number] Syruper: [employer] Lot number: [id number] Device identifier: [id number] Device identifier type: GS1 As of 06/05/2023 Status: Implanted [employer] [employer] Ben Contour 6fr 26cm Large Inner Lumen Low Profile Bladder Ag Taper Latex [id number] - [id number] - Implanted (Right) Ureter Inventory item: [employer]EN Contour 6fr 26cm Large Inner Lumen Low Profile Bladder Ag Taper Latex Free 180-223 Model/Cat number: [id number] Syruper: [employer] Ben Lot number: [id number] As of 09/27/2023 Status: Implanted [place] [employer] Ben Contour 6fr 26cm Large Inner Lumen Low Profile Bladder Ag Taper Latex [id number] - [id number] - Implanted (Right) Ureter Inventory item: [employer] BEN Contour 6fr 26cm Large Inner Lumen Low Profile Bladder Ag Taper Latex Free 180-223 Model/Cat number: [id number] Syruper: [employer] Lot number: [id number] As of 10/04/2023 Status: Implanted General Precautions (If Blank, None Found): Isolation Status: No active isolations Nutritional Status and in-house recommendations: Dietary Orders (From admission, onward) Start Ordered 10/04/23826 Adult Diet Regular Diet effective now Question: ([facility]) Diet type Answer: Regular 10/04/23826 [...] Landa MD - 10/04/2023 6:34 AM CDT [facility]rology Progress Note Assessment & Plan: [...] Patel MD - 10/04/2023 12:58 AM CDT 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 Objective Past Medical History: [...] mg/dL 15 27* CREATININE mg/dL 1.15 1.70* LWF-ISS-WVYXGWU mL/min/1.73 m2 87 55* CALCIUM mg/dL 8.4* [...] 04/2023, 05/2022, 06/2022 and 08/2022 admissions at [facility]. April admission noted 236lb with fluid overload [...] obvious between folds of skin Muscle Loss [place] Region - Temporalis Muscle: Can see/feel well-defined [...] PM CDT Daily Progress Note Division [facility] Medicine Name: Eriberto Bangura Today: October 03, 2023 : 1990 Age: 33 y.o. male Admit: 10/02/2023 Bed: [facility] Subjective Chief complaint: pyelo Interval History: [...] uro recs this afternoon * Raffi Carolina [facility] - 10/02/2023 3:17 PM CDT Pharmacy Note - Ceftriaxone Dosing Ceftriaxone will be dose adjusted to 2 gm every 24 hours for urinary tract/genitourinary infection according to the following pharmacy dosing guidelines: Indication Recommendation Usual dose 2 grams every 24 hours Severe infection (including but not limited to: Enterococcus endocarditis or RESOURCE MANAGER infection) 2 gramsevery 12 hours Doses [...] from the original note were not included. [facility] U[facility] Consultation Patient Name: Eriberto Bangura [...] 50 mg 50 mg oral TID Radha Dxion MD 50 mg at 10/02/232106 HYDROcodone-acetaminophen (NORCO) [...] three days after stent removal 09/27/23 10/02/23 aMrcus Glass MD Review of Systems Review of [...] CTA chest abdomen pelvis dated 09/26/2023 from [facility], CT dated 08/23/2023 from [facility] FINDINGS: Mild bibasilar atelectasis. Partially visualized aortic stent graft extending from the superior vypdi-ke-lwsy in the thoracic aorta to the distal [...] from the original note were not included. [facility]rology Consultation Patient Name: Eriberto Bangura [...] 10/02/2023 Hypokalemia 10/02/2023 ANGI (acute kidney injury) ([facility]) 10/02/2023 Syncope 10/02/2023 Ureteral calculi 09/27/2023 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[facility]) 09/06/2023 Back pain at L4-L5 level 08/23/2023 PFO (patent foramen ovale) 07/05/2023 Ureteral stone 07/04/2023 Abdominal pain 07/04/2023 Other chronic pain 06/24/2023 Pseudoaneurysm following procedure ([facility]) ([facility]) 06/24/2023 Infrarenal abdominal aortic aneurysm, without rupture ([facility]) 06/13/2023 Polysubstance abuse ([facility]) ([facility]) 06/10/2023 Moderate malnutrition ([facility]) ([facility]) 06/09/2023 Dissection of abdominal aorta ([facility]) ([facility]) 06/03/2023 Urinary retention 05/16/2023 Epistaxis 05/13/2023 Pneumonia 05/13/2023 HTN (hypertension) 05/13/2023 Dissection of thoracoabdominal aorta ([facility]) ([facility]) 05/02/2023 Dissection of aorta, unspecified portion of aorta ([facility]) 05/01/2023 Past Medical History: Diagnosis Date Abdominal pain Anxiety Aortic dissection ([facility]) Depression Hypertension Kidney stones Memory loss [...] [N12] Hypokalemia [E87.6] ANGI (acute kidney injury) ([facility]) [N17.9] Syncope, unspecified syncope type [R55] Dissection of aorta, unspecified portion of aorta ([facility]) [I71.00] Primary hypertension [I10] Weight loss [R63.4] ANGI (acute kidney injury) ([facility]) Mellisa Woo MD 10/04/23 1542 * [...] Implant Name Type Inv. Item Serial No. Syruper Lot No. LRB No. Used Action [employer] BEN Contour 6fr 26cm Large Inner Lumen Low Profile Bladder Ag Taper Latex [id number] - [id number] [employer] BEN Contour 6fr 26cm Large Inner Lumen Low Profile BladderMark Taper Latex Free 180-223 [employer] Ben [id number] 1 Implanted OPERATIVE DETAILS Incision type: [...] technique. A time-out was performed. A 22 Georgian cystoscope was introduced per urethra without difficulty. [...] after taking compazine that he should try Laurel. He said ok. Five minutes later he [...] Age: 33 y.o. male Admit: 10/02/2023 Bed: [facility]/[address] Subjective Chief complaint: pyelo Interval History: [...] - 10/03/2023 12:08 AM CDT Associated Problem(s): ANIG (acute kidney injury) (HCC) Scr improving Cont [...] c/o lower back pain. Dilaudid, Tylenol, and Laurel being utilizedfor pain. Pt placed on telemetry [...] [employer] Prescription Coverage: Yes Pharmacy: [facility]/pharmacy #[id number] - [place], [place] [facility] [address] [facility] [address] [facility] [address] Primary Care Provider: Carl Strickland MD Prior [...] Patient declined How often do you attend jainism or yazdanism services?: Patient declined Do you belong to any clubs or organizations such as jainism groups, unions, fraternal or athletic groups, or [...] include: Home Health: IV therapy (Patient has [facility] [place] [facility]) (10/02/232031) Dialysis: NO Behavioral Health [...] Collaboration with patient, MD, direct care nurse, Building Rental Manager, and other members of the health care team to assure needed interventions completed. 2. Return patient to optimal level of self-care post discharge. 3. Integrated Circuit Fabricator will follow for Discharge Planning - interventions [...] Chronic Care Management No change(05/16 2:51 PM CEMENT MASON) No Rita Landa, BRIA Note: Problem: Chronic [...] MD IMG FLUOROSCOPY MAGED PRINCE Final Result [facility] * eGFR (10/04/2023 5:40 AM CDT) [...] MD LAB BLOOD ORDERABLES Fi nal Result [facility] [address] Department [place] [address] * Differential, auto (10/04/2023 5:40 AM CDT) Neutrophil abs 3.8 1.5 - 6.5 K/cumm Imm gran abs 0.1 0.0 - 0.1 K/cumm [facility] Lymphocyte abs 1.2 0.8 - 3.3 K/cumm [facility] Monocyte abs 0.7 0.2 - 0.8 K/cumm [facility] Eosinophil abs 0.0 0.0 - 0.5 K/cumm [facility] Basophil abs 0.0 0.0 - 0.1 K/cumm [facility] Neutrophil pct 66.5 % [facility] Comment: Interpretive Data Percent cell count reference ranges are not reported, since discordance with absolute values may lead to misinterpretation of CBC data. Current Interpretive Data was last revised on 2017. Imm gran pct 0.9 % [facility] Comment: Interpretive Data Percent cell count reference ranges are not reported, since discordance with absolute values may lead to misinterpretation of CBC data. Current Interpretive Data was last revised on 2017. Lymphocyte pct 20.1 % [facility] Comment: Interpretive Data Percent cell count reference ranges are not reported, since discordance with absolute values may lead to misinterpretation of CBC data. Current Interpretive Data was last revised on 2017. Monocyte pct 11.9 % [facility] Comment: Interpretive Data Percent cell count reference ranges are not reported, since discordance with absolute values may lead to misinterpretation of CBC data. Current Interpretive Data was last revised on 2017. Eosinophil pct 0.3 % [facility] Comment: Interpretive Data Percent cell count reference ranges are not reported, since discordance with absolute values may lead to misinterpretation of CBC data. Current Interpretive Data was last revised on 2017. Basophil pct 0.3 % [facility] Comment: Interpretive Data Percent cell count reference ranges are not reported, since discordance with absolute values may lead to misinterpretation of CBC data. Current Interpretive Data was last revised on 2017. Blood 10/04/2023 5:40 AM CDT 10/04/2023 6:45 AM CDT us Doron Boudreaux MD LAB BLOOD ORDERABLES Fi nal Result [facility] [address] Department [place] [address] * Magnesium (10/04/2023 5:40 AM CDT) Magnesium 2.1 1.4 - 2.5 mg/dL Blood 10/04/2023 5:40 AM CDT 10/04/2023 6:45 AM CDT Doron Boudreaux MD LAB BLOOD ORDERABLES Fi nal Result Performing Organization Address [facility]/ZIP Co de Phone Number [facility] [address] [place] [address] * (ABNORMAL) Basic metabolic panel (10/04/2023 5:40 AM CDT) [facility] Sodium 140 135 - 145 mmol/L Potassium, pl 3.6 3.3 - 4.9 mmol/L [facility] Chloride 104 97 - 110 mmol/L [facility] CO2 22 22 - 32 mmol/L [facility] Anion gap 14 2 - 15 mmol/L [facility] BUN 11 6 - 25 mg/dL [facility] Creatinine 1.56(H) 0.80 - 1.30 mg/dL [facility] Glucose 96 70 - 199 mg/dL [facility] Comment: Interpretive Data Fasting glucose >/= 126 [...] 2022. Calcium 8.6 8.5 - 10.3 mg/dL [facility] Blood 10/04/2023 5:40 AM CDT 10/04/2023 6:45 AM CDT Doron Boudreaux MD LAB BLOOD ORDERABLES Fi nal Result Performing Organization Address [facility] Co de Phone Number [facility] [address] [place] [address] * (ABNORMAL) CBC with auto differential (10/04/2023 5:40 AM CDT) WBC 5.7 3.8 - 9.9 K/cumm Hgb 10.4(L) 13.0 - 17.5 g/dL [facility] Hct 32.9(L) 38.9 - 50.3 % [facility] Plt 236 150 - 400 K/cumm [facility] MPV 9.6 9.1 - 12.3 fL [facility] RBC 3.55(L) 4.30 - 5.80 M/cumm [facility] MCV 92.7 81.3 - 96.4 fL [facility] MCH 29.3 27.1 - 33.3 pg [facility] MCHC 31.6(L) 32.3 - 35.7 g/dL [facility] RDW CV 14.8 11.1 - 14.9 % [facility] RDW SD 50.7(H) 35.7 - 48.1 fL [facility] NRBC abs 0.00 0.00 - 0.01 K/cumm [facility] Blood 10/04/2023 5:40 AM CDT 10/04/2023 6:45 AM CDT us Doron Boudreaux MD LAB BLOOD ORDERABLES Fi nal Result [facility] [address] Department [place] [address] * Blood culture Blood (10/04/2023 1:58 AM CDT) Pathologist [facility] Report Final Report: No growth Blood 10/04/2023 1:58 AM CDT 10/04/2023 2:11 AM CDT Narrative [facility] - 10/09/2023 7:01 AM CDT From a [...] organism identification may be performed using the Efield[employer] Blood Culture Identification panel. This assay detects microbial DNA in a blood culture broth. This assay has been cleared by the [facility] Food and Drug Administration and its performance characteristics have been verified by the [facility]. Interpretive data was last revised on July 01, 2022. Kim Patel MD LAB MICROBIOLOGY - GENERAL ORDERABLES Final Result Performing Organization Address [facility] Co de Phone Number [facility] [address] [place] [address] * Blood culture Blood (10/04/2023 1:25 AM CDT) Report Final Report: No growth Blood 10/04/2023 1:25 AM CDT 10/04/2023 1:51 AM CDT Narrative [facility] - 10/09/2023 7:01 AM CDT [...] organism identification may be performed using the [employer] FilmArray Blood Culture Identification panel. This assay detects microbial DNA in a blood culture broth. This assay has been cleared by the [place] Food and Drug Administration and its performance characteristics have been verified by the [facility]. Interpretive data was last revised on July 01, 2022. Kim Patel MD LAB MICROBIOLOGY - GENERAL ORDERABLES Final Result Performing Organization Address [facility] Co de Phone Number [facility] [address] Department [place], [place] [id number] * TRANSTHORACIC ECHO (TTE) COMPLETE W DOPPLER/CF W CONTRAST (10/03/2023 4:05 PM CDT) Anatomical Region Laterality Modality Ultrasound 10/03/2023 2:55 PM CDT Narrative 10/03/2023 4:51 PM CDT [facility] [address] [place] [address] ECHOCARDIOGRAM Patient Name: ERIBERTO BANGURA I : 1990 Study Date: 10/03/2023 2:55:30 PM Gender: M Tech: Location: [address] Ref Provider: RADHA DIXON ?Height(Cm): 175 [...] hypertrophy. Electronically Signed By: Deandre Meza MD, [facility] 2023-10-03 16:50:39 CDT Procedure Note Deandre Meza MD - 10/03/2023 [id number] [place] [address] ECHOCARDIOGRAM Patient Name: ERIBERTO BANGURA I : 1990 Study Date: 10/03/2023 2:55:30 PM Gender: M Tech: Location: [address] Ref Provider: RADHA DIXON Height(Cm): 175 [...] hypertrophy. Electronically Signed By: Deandre Meza MD, [facility] 2023-10-03 16:50:39 CDT Radha Dixon MD CV [...] MD LAB BLOOD ORDERABLES Final Resu lt [facility] [address] Department [place] [address] * (ABNORMAL) Differential, auto (10/03/2023 8:01 AM CDT) Neutrophil abs 4.7 1.5 - 6.5 K/cumm Imm gran abs 0.1 0.0 - 0.1 K/cumm [facility] Lymphocyte abs 0.6(L) 0.8 - 3.3 K/cumm [facility] Monocyte abs 1.0(H) 0.2 - 0.8 K/cumm [facility] Eosinophil abs 0.0 0.0 - 0.5 K/cumm [facility] Basophil abs 0.0 0.0 - 0.1 K/cumm [facility] Neutrophil pct 74.0 % [facility] Comment: Interpretive Data Percent cell count reference ranges are not reported, since discordance with absolute values may lead to misinterpretation of CBC data. Current Interpretive Data was last revised on 2017. Imm gran pct 0.8 % [facility] Comment: Interpretive Data Percent cell count reference ranges are not reported, since discordance with absolute values may lead to misinterpretation of CBC data. Current Interpretive Data was last revised on 2017. Lymphocyte pct 9.7 % [facility] Comment: Interpretive Data Percent cell count reference ranges are not reported, since discordance with absolute values may lead to misinterpretation of CBC data. Current Interpretive Data was last revised on 2017. Monocyte pct 15.2 % [facility] Comment: Interpretive Data Percent cell count reference ranges are not reported, since discordance with absolute values may lead to misinterpretation of CBC data. Current Interpretive Data was last revised on 2017. Eosinophil pct 0.0 % [facility] Comment: Interpretive Data Percent cell count reference ranges are not reported, since discordance with absolute values may lead to misinterpretation of CBC data. Current Interpretive Data was last revised on 2017. Basophil pct 0.3 % [facility] Comment: Interpretive Data Percent cell count reference ranges are not reported, since discordance with absolute values may lead to misinterpretation of CBC data. Current Interpretive Data was last revised on 2017. Blood 10/03/2023 8:0 1 AM CDT 10/03/2023 9:26 AM CDT us Loyda Hernandez MD LAB BLOOD ORDERABLES Final Resu lt Performing Organization Address [facility]/ZIP Co de Phone Number [facility] [address] Department [place] [address] * Magnesium (10/03/2023 8:01 AM CDT) Pathologist [facility] Magnesium 1.9 1.4 - 2.5 mg/dL Blood 10/03/2023 8:01 AM CDT 10/03/2023 9:56 AM CDT Radha Dixon MD LAB BLOOD ORDERABLES F inal Result Performing Organization Address [facility]/ZIP Co de Phone Number [facility] [address] Department [place] [address] * (ABNORMAL) CBC with auto differential (10/03/2023 8:01 AM CDT) WBC 6.3 3.8 - 9.9 K/cumm Hgb 10.0(L) 13.0 - 17.5 g/dL [facility] Hct 31.1(L) 38.9 - 50.3 % [facility] Plt 230 150 - 400 K/cumm [facility] MPV 9.3 9.1 - 12.3 fL [facility] RBC 3.35(L) 4.30 - 5.80 M/cumm [facility] MCV 92.8 81.3 - 96.4 fL [facility] MCH 29.9 27.1 - 33.3 pg [facility] MCHC 32.2(L) 32.3 - 35.7 g/dL [facility] RDW CV 15.0(H) 11.1 - 14.9 % [facility] RDW SD 50.0(H) 35.7 - 48.1 fL [facility] NRBC abs 0.00 0.00 - 0.01 K/cumm [facility] Blood 10/03/2023 8:01 AM CDT 10/03/2023 9:26 AM CDT us Loyda Hernandez MD LAB BLOOD ORDERABLES Final Resu lt [facility] [address] Department [place] [address] * (ABNORMAL) Basic metabolic panel (10/03/2023 8:01 AM CDT) Sodium 134(L) 135 - 145 mmol/L Potassium, pl 3.3 3.3 - 4.9 mmol/L [facility] Chloride 100 97 - 110 mmol/L [facility] CO2 22 22 - 32 mmol/L [facility] Anion gap 12 2 - 15 mmol/L [facility] BUN 15 6 - 25 mg/dL [facility] Creatinine 1.15 0.80 - 1.30 mg/dL [facility] Glucose 95 70 - 199 mg/dL [facility] Comment: Interpretive Data Fasting glucose >/= 126 [...] 2022. Calcium 8.4(L) 8.5 - 10.3 mg/dL [facility] Blood 10/03/2023 8:01 AM CDT 10/03/2023 9:56 AM CDT us Loyda Hernandez MD LAB BLOOD ORDERABLES Final Resu lt Performing Organization Address [facility] de Phone Number [facility] [address] Department [place] [address] * Urine culture Urine, clean voided (10/03/2023 1:00 AM CDT) Report Final Report: No growth Urine, clean voided 10/03/2023 1:00 AM CDT 10/03/2023 5:13 AM CDT [facility]ative [facility] - 10/05/2023 6:00 AM CDT Urine culture reflexed based upon urinalysis results. Craig Reed MD LAB MICROBIOLOGY - GENERAL ORDERABLES Final Result Performing Organization Address [facility] de Phone Number [facility] [address] Department [place] [address] * (ABNORMAL) Urinalysis, microscopic only (10/03/2023 1:00 AM CDT) WBC, ur >50(A) 0 - 5 /HPF RBC, ur >50(A) 0 - 2 /HPF [facility] Culture Reflex Comment Reflex to urine culture will be performed. [facility] Urine, clean voided 10/03/2023 1:00 AM CDT 10/03/2023 1:13 AM CDT Craig Reed MD LAB URINE ORDERABLES Final Result Performing Organization Address [facility] de Phone Number [facility] [address] Department [place] [address] * (ABNORMAL) Urinalysis reflex to microscopic and culture Urine, clean voided (10/03/2023 1:00 AM CDT) Color, ur Tessa Yellow Clarity, ur Turbid(A) Clear [facility] Specific gravity, ur 1.035(H) 1.003 - 1.030 [facility] pH, urine 6.0 [facility] Comment: Interpretive Data ? Urine pH is affected by diet, medications, systemic acid-base disturbances, and renal tubular function. ??pH may affect urinary stone formation. ??For example, urine pH below 6.0 may help reduce the tendency for calcium phosphate stones and pH greater than 6.0 may reduce the tendency for uric acid stone formation. Source: [facility] Current Interpretive Data was last revised on 2017 Protein, ur ql 1+(A) Negative [facility] Glucose, ur ql Negative Negative [facility] Ketones, ur Negative Negative [facility] Bilirubin, ur Negative Negative [facility] Blood, ur 3+(A) Negative [facility] Urobilinogen, ur <2.0 <2.0 mg/dL [facility] Nitrite, ur Negative Negative [facility] Leukocyte esterase, ur 3+(A) Negative [facility] UA reflex comment Reflex to microscopic UA will be performed. [facility] Urine, clean voided 10/03/2023 1:00 AM CDT 10/03/2023 1:13 AM CDT us Craig Reed MD LAB MICROBIOLOGY - GENERAL ORDERABLES Final Result [facility] [address] [place] [address] * CT Abdomen Pelvis W Contrast (10/02/2023 [...] GENERA L ORDERABLES Final Result [facility] OLIVA [address] Department [place] [address] * (ABNORMAL) Urinalysis, microscopic only (10/02/2023 1:56 PM CDT) WBC, ur >50(A) 0 - 5 /HPF RBC, ur >50(A) 0 - 2 /HPF [facility] Epithelial cells, squamous, ur 1-5 0 - 5 /HPF [facility] Bacteria, ur 3+(A) [facility] Mucous, ur Present(A) [facility] Culture Reflex Comment Reflex to urine culture will be performed. [facility] Urine, bladder 10/02/2023 1: 56 PM CDT 10/02/2023 2:04 PM CDT Mellisa Woo MD LAB URINE ORDERABLES Sally zhang Result [facility] [address] Department [place] [address] * (ABNORMAL) Urinalysis reflex to microscopic and culture Urine, bladder (10/02/2023 1:56 PM CDT) Color, ur Tessa Yellow Clarity, ur Turbid(A) Clear [facility] Specific gravity, ur 1.023 1.003 - 1.030 [facility] pH, urine 6.0 [facility] Comment: Interpretive Data ? Urine pH is affected by diet, medications, systemic acid-base disturbances, and renal tubular function. ??pH may affect urinary stone formation. ??For example, urine pH below 6.0 may help reduce the tendency for calcium phosphate stones and pH greater than 6.0 may reduce the tendency for uric acid stone formation. Source: [facility] Current Interpretive Data was last revised on 2017 Protein, ur ql 2+(A) Negative [facility] Glucose, ur ql Negative Negative [facility] Ketones, ur Negative Negative [facility] Bilirubin, ur Negative Negative [facility] Blood, ur 3+(A) Negative [facility] Urobilinogen, ur <2.0 <2.0 mg/dL [facility] Nitrite, ur Negative Negative [facility] Leukocyte esterase, ur 4+(A) Negative [facility] UA reflex comment Reflex to microscopic UA will be performed. [facility] Urine, bladder 10/02/2023 1: 56 PM CDT 10/02/2023 1:56 PM CDT us Mellisa Woo MD LAB MICROBIOLOGY - GENERA L ORDERABLES Final Result Performing Organization Address [facility] Co de Phone Number [facility] [address] [employer] [place], [place] [id number] * (ABNORMAL) eGFR (10/02/2023 1:37 PM CDT) [...] ORDERABLES Sally l Result Performing Organization Address [facility] Co de Phone Number [facility] [address] [place] [address] * (ABNORMAL) Differential, auto (10/02/2023 1:37 PM CDT) Pathologist [facility] Neutrophil abs 6.0 1.5 - 6.5 K/cumm Imm gran abs 0.0 0.0 - 0.1 K/cumm [facility] Lymphocyte abs 0.5(L) 0.8 - 3.3 K/cumm [facility] Monocyte abs 0.9(H) 0.2 - 0.8 K/cumm [facility] Eosinophil abs 0.1 0.0 - 0.5 K/cumm [facility] Basophil abs 0.0 0.0 - 0.1 K/cumm [facility] Neutrophil pct 79.8 % [facility] Comment: Interpretive Data Percent cell count reference ranges are not reported, since discordance with absolute values may lead to misinterpretation of CBC data. Current Interpretive Data was last revised on 2017. Imm gran pct 0.5 % [facility] Comment: Interpretive Data Percent cell count reference ranges are not reported, since discordance with absolute values may lead to misinterpretation of CBC data. Current Interpretive Data was last revised on 2017. Lymphocyte pct 7.1 % [facility] Comment: Interpretive Data Percent cell count reference ranges are not reported, since discordance with absolute values may lead to misinterpretation of CBC data. Current Interpretive Data was last revised on 2017. Monocyte pct 11.5 % [facility] Comment: Interpretive Data Percent cell count reference ranges are not reported, since discordance with absolute values may lead to misinterpretation of CBC data. Current Interpretive Data was last revised on 2017. Eosinophil pct 0.8 % [facility] Comment: Interpretive Data Percent cell count reference ranges are not reported, since discordance with absolute values may lead to misinterpretation of CBC data. Current Interpretive Data was last revised on 2017. Basophil pct 0.3 % [facility] Comment: Interpretive Data Percent cell count reference ranges are not reported, since discordance with absolute values may lead to misinterpretation of CBC data. Current Interpretive Data was last revised on 2017. Blood 10/02/2023 1:37 PM CDT 10/02/2023 1:56 PM CDT Mellisa Woo MD LAB BLOOD ORDERABLES Sally l Result Performing Organization Address [facility]/ZIP Co de Phone Number [facility] [address] Department [place] [address] * Lipase (10/02/2023 1:37 PM CDT) Pathologist [facility] Lipase 10 10 - 99 Units/L Blood 10/02/2023 1:37 PM CDT 10/02/2023 1:56 PM CDT Mellisa Woo MD LAB BLOOD ORDERABLES Sally l Result Performing Organization Address [facility] Co de Phone Number [facility] [address] Department [place] [address] * (ABNORMAL) Comprehensive metabolic panel (10/02/2023 1:37 PM CDT) [facility] Sodium 138 135 - 145 mmol/L Potassium, pl 3.1(L) 3.3 - 4.9 mmol/L [facility] Chloride 101 97 - 110 mmol/L [facility] CO2 25 22 - 32 mmol/L [facility] Anion gap 12 2 - 15 mmol/L [facility] BUN 27(H) 6 - 25 mg/dL [facility] Creatinine 1.70(H) 0.80 - 1.30 mg/dL [facility] Glucose 93 70 - 199 mg/dL [facility] Comment: Interpretive Data Fasting glucose >/= 126 [...] 2022. Calcium 9.2 8.5 - 10.3 mg/dL [facility] Bilirubin, total 0.4 0.1 - 1.2 mg/dL [facility] Protein, pl 8.0 6.5 - 8.5 g/dL [facility] Albumin 4.3 3.5 - 5.0 g/dL [facility] Alk phos 90 40 - 130 Units/L [facility] ALT 8 7 - 55 Units/L [facility] AST 10 10 - 50 Units/L [facility] Blood 10/02/2023 1:37 PM CDT 10/02/2023 1:56 PM CDT us Mellisa Woo MD LAB BLOOD ORDERABLES Sally zhang Result [facility] [address] Department [place] [address] * (ABNORMAL) CBC with auto differential (10/02/2023 1:37 PM CDT) [facility] WBC 7.5 3.8 - 9.9 K/cumm Hgb 10.7(L) 13.0 - 17.5 g/dL [facility] Hct 32.2(L) 38.9 - 50.3 % [facility] Plt 259 150 - 400 K/cumm [facility] MPV 9.4 9.1 - 12.3 fL [facility] RBC 3.62(L) 4.30 - 5.80 M/cumm [facility] MCV 89.0 81.3 - 96.4 fL [facility] MCH 29.6 27.1 - 33.3 pg [facility] MCHC 33.2 32.3 - 35.7 g/dL [facility] RDW CV 14.8 11.1 - 14.9 % [facility] RDW SD 48.2(H) 35.7 - 48.1 fL [facility] NRBC abs 0.00 0.00 - 0.01 K/cumm [facility] Blood 10/02/2023 1:37 PM CDT 10/02/2023 1:56 PM CDT us Mellisa Woo MD LAB BLOOD ORDERABLES Sally leatha Result [facility] [address] Department [place] [address] documented in this encounter Visit Diagnoses Not [...] - Provider: Migel Oliveira - Reason: 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 - education provided) 0055 (Given - Provider: Migel Oliveira) labetaloL (NORMODYNE,TRANDATE) tablet 400 mg 400 mg, oral, 2 times daily, First dose on Tue10/02/23 at 2130, Please hold for SBP < 120 2106 (Given - Provider: Migel Oliveira) 1018 (Given - Provider: Naomi Mejia RN)2046 (Not Given - Provider: Migel Oliveira - Reason: 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 - education provided) 0626 (JUL [...] Cayla Toussaint, BRIA)1522 (Stopped - Provider: Cayla oTussaint, BRIA) sodium chloride 0.9% bolus 500 mL [...] BRIA)2051 (Given - Provider: Migel Oliveira) 0626 ([facility] Hold - Provider: Automatic Transfer Provider - Reason: Patient not available)0923 ([facility] Unhold - Provider: Automatic Transfer Provider) capsaicin (ZOSTRIX) 0.025 % cream 1 Application 1 Application, topical, 2 times daily PRN, pain, Starting on 10/02/23 at 2051, Apply to affected area: rash 0626 ([facility] Hold - Provider: Automatic Transfer Provider - Reason: Patient not available)0923 ([facility] Unhold - Provider: Automatic Transfer Provider) Carrier Fluids for Secondary Infusion - 0.9% Sodium Chloride 30 mL, intravenous, As needed, For priming tubing and/or flushing, Starting on 10/02/23 at 2051, 0-250 ml/hr to flush line after IV infusions when no maintenance IV ordered. Infuse 30mL at the same rate as the secondary infusion. Run as primary IV, not intended for KVO. 0626 ([facility] Hold - Provider: Automatic Transfer Provider - Reason: Patient not available)0923 ([facility] Unhold - Provider: Automatic Transfer Provider) dicyclomine (BENTYL) capsule 20 mg 20 mg, oral, Every 6 hours PRN, For abdominal pain, Starting on 10/02/23 at 2051 625 ([facility] Hold - Provider: Automatic Transfer Provider - Reason: Patient not available)0923 ([facility] Unhold - Provider: Automatic Transfer Provider) [...] RN) 0055 (Given - Provider: Migel Oliveira)0626 ([facility] Hold - Provider: Automatic Transfer Provider - Reason: Patient not available)0923 ([facility] Unhold - Provider: Automatic Transfer Provider) hydrocortisone (ANUSOL-HC) 2.5 % rectal cream rectal, 2 times daily PRN, hemorrhoids, Starting on 10/02/23 at 2051 06 ([facility] Hold - Provider: Automatic Transfer Provider - Reason: Patient not available)0923 ([facility] Unhold - Provider: Automatic Transfer Provider) [...] Oliveira) 0532 (Given - Provider: Migel Oliveira)06 ([facility] Hold - Provider: Automatic Transfer Provider - Reason: Patient not available)0923 ([facility] Unhold - Provider: Automatic Transfer Provider) hyoscyamine (OSCIMIN) disintegrating tablet 125 mcg 125 mcg, oral, Every 4 hours PRN, bladder spasms, Starting on 10/02/23 at 2051, Indications: Ureteral stent discomfort 06 ([facility] Hold - Provider: Automatic Transfer Provider - Reason: Patient not available)0923 ([facility] Unhold - Provider: Automatic Transfer Provider) [...] (See Alternative - Provider: Migel Oliveira) 06 ([facility] Hold - Provider: Automatic Transfer Provider - Reason: Patient not available)0923 ([facility] Unhold - Provider: Automatic Transfer Provider) ondansetron ODT (ZOFRAN-ODT) disintegrating tablet 4 mg(Linked Group 1) 4 mg, oral, Every 6 hours PRN, nausea, vomiting, Starting on 10/02/23 at 2027, Indications: Nausea and Vomiting 2034 (See Alternative - Provider: Cayla Toussaint, BRIA) 0437 (Given - Provider: Migel Oliveira) 0626 ([facility] Hold - Provider: Automatic Transfer Provider - Reason: Patient not available)0923 ([facility] Unhold - Provider: Automatic Transfer Provider) oxyBUTYnin (DITROPAN) tablet 5 mg 5 mg, oral, 3 times daily PRN, Bladder spasms/discomfort, Starting on 10/02/23 at 2036, Indications: Ureteral stent discomfort 06 ([facility] Hold - Provider: Automatic Transfer Provider - Reason: Patient not available)0923 ([facility] Unhold - Provider: Automatic Transfer Provider) [...] 1605 (Contrast Given - Provider: Anabel Pérez [facility] - Comment: Anabel administered) polyethylene glycol (MIRALAX) packet 17 g 17 g, oral, Daily PRN, constipation, Starting on Tue10/02/23 at 2051, Indications: constipation 06 ([facility] Hold - Provider: Automatic Transfer Provider - Reason: Patient not available)0923 ([facility] Unhold - Provider: Automatic Transfer Provider) prochlorperazine (COMPAZINE) injection 5 mg 5 mg, intravenous, Administer over 2 Minutes, Every 6 hours PRN, nausea, vomiting, 2nd line, Starting on Tue10/03/23 at 0755 0917 (Given - Provider: Naomi Mejia RN) 0626 ([facility] Hold - Provider: Automatic Transfer Provider - Reason: Patient not available)0923 ([facility] Unhold - Provider: Automatic Transfer Provider) ramelteon (ROZEREM) tablet 8 mg 8 mg, oral, Nightly PRN, sleep, Starting on Tue10/02/23 at 2051, Indications: Sleep-Onset Insomnia 2106 (Given - Provider: Migel Oliveira) 2051 (Given - Provider: Migel Oliveira) 0626 ([facility] Hold - Provider: Automatic Transfer Provider - Reason: Patient not available)0923 ([facility] Unhold - Provider: Automatic Transfer Provider) [...] 10/04/2023 documented in this encounter Care Teams Nut Threader Relationship Specialty Start Date End Date Carl Strickland MD [address] [facility] [address] [place] [address] PCP - General Internal Medicine 06/06/23 Leo Manzano MD [address] [facility] [id number] [place] [address] Surgeon Vascular Surgery 05/16/23 documented as of this encounter
--- OUTSIDE RECORDS SUMMARY | 2024-05-30 06:27 | XMS_ITS | Encounter Summary ---
Author Organization [facility] Healthcare Address [address] [place] [address] Care Team Providers Care Teacher Private Name Role Phone Leo Manzano MD Unavailable [phone] Carl Strickland MD Primary Care Provider Reason for Visit * Reason Comments Follow-up Encounter Details Date Type Department Care Team (Latest Contact Info) Description 11/14/2023 12:45 PM CDT - 11/14/2023 11:59 PM CDT Hospital Encounter [facility] [address] [place] [address] Advanced Medicine [address] [place] [address] Amanda Macias MD [address] [facility] [address] [place] [address] Neuropathic pain Discharge Disposition: Discharge to home [...] declined 10/02/2023 How often do you attend denominational or hinduism serv ices? 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) DISCHARGE INSTRUCTIONS MEDICATIONS: [x] Continue your [...] DIET: [x] Resume normal diet [] See [facility] Post Discharge Procedure Information Sheet ACTIVITY: [] Resume normal activity [x] See [facility] Post Discharge Procedure Information Sheet FOLLOW UP APPOINTMENTS: [x] Follow up appointment: 6 weeks *Need help with MyChart? Call [phone]. Patient provided information and repeated back with understanding. If you need to reach us: For any questions about your procedure, please call the Pain Management Center [phone] (M-F) (8am-4pm) If you need urgent attention after 5 pm and weekends: Call the [facility] Condenser Winder at [phone] and ask for the Pain Service doctor recreation adviser. * Attachments The following attachments cannot be sent through Care Everywhere. * Pregabalin (By mouth) (Lithuanian) documented in this encounter Medications at Time [...] Today Date: 11/14/2023 He returns to the [facility] for His low back pain. The [...] stone extraction for obstructing ureteral stone at [facility]. He had left from the hospital on the same day, however presented POD 4 with bleeding and pain after pulling the ureteral stent. At the time, he was readmitted to [facility] for nephrolithiasis, renal insufficiency, and UTI. He [...] palpation of spinal processes. Paraspinal muscle tenderness. [id number] SPINE: Tenderness at the lumbosacral region. Positive [...] MD Fellow, Pain Management, Department of Anesthesiology [facility], [facility] Center 11/14/2023 1:55 PM [...] Chronic Care Management No change(05/16 2:51 PM COLLAR FOLDER OPERATOR) No Rita Landa, BRIA Note: Problem: Chronic [...] REMOVAL added in this encounter Care Teams Teacher Private Relationship Specialty Start Date End Date Carl Strickland MD [address] [facility] [place] [address] PCP - General Internal Medicine 06/06/23 Leo Manzano MD [address] [facility] [id number] [place] [address] Surgeon Vascular Surgery 05/16/23 documented as of this encounter
--- OUTSIDE RECORDS SUMMARY | 2024-05-30 06:27 | XMS_ITS | Encounter Summary ---
Author Organization [facility] Address [address] [place] [address] Phone Care Team Providers Care Rn Clinical Trials Name Role Phone Leo Manzano MD Unavailable [phone] Carl Strickland MD Primary Care Provider Encounter Details Date Type Department Care Team (Late st Contact Info) Description 11/08/2023 Orders Only [facility] [address] [facility] Advanced Medicine 8th [place] [address] [place] [address] Mariah Case RN Social History Tobacco Use Types Packs/Day Years Used Date Smoking Tobacco: Never Smokeless Tobacco: Never Alcohol Use Standard Drinks/Week Comments Not Currently 0 (1 standard drink = 0.6 oz pur e alcohol) [facility] Utilities Answer Date Recorded In the past 12 months has [employer] electric, gas, oil, or water company threatened [...] declined 10/02/2023 How often do you attend hindu or rastafari serv ices? 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 Gender Identity Not on file Sexual Orientation Straight 06/12/2023 11 :43 PM PICKER/PULLER documented as of this encounter Ordered Prescriptions [...] Chronic Care Management No change(05/16 2:51 PM PICKER/PULLER) No Rita Landa RN Note: Problem: Chronic [...] documented as of this encounter Care Teams Rn Clinical Trials Relationship Specialty Start Date End Date Carl Strickland MD [address] [facility] 1 [place] [address] PCP - General Internal Medicine 06/06/23 Leo Manzano MD [address] [facility] [id number] [place] [address] Surgeon Vascular Surgery 05/16/23 documented as of this encounter
--- OUTSIDE RECORDS SUMMARY | 2024-05-30 06:27 | XMS_ITS | Encounter Summary ---
Author Organization [facility] Address [address] [place] [address] Phone Care Team Providers Care Hand Etcher Name Role Phone Leo Manzano MD Unavailable [phone] Carl Strickland MD Primary Care Provider Encounter Details Date Type Department Care Team (Latest Contact Info) Description 12/07/2023 Orders Only [facility] Scanning, Provider Social History Tobacco Use Types Packs/Day Years Used Date Smoking Tobacco: Never Smokeless Tobacco: Never Alcohol Use Standard Drinks/Week Comments Not Currently 0 (1 standard drink = 0.6 oz pur e alcohol) [facility] Utilities Answer Date Recorded In the past 12 months has [employer], gas, oil, or water [employer] threatened to shut off services in your home? Patient declined 10/02/2023 Social Connection and Isolation Panel [NHANES] A nswer Date Recorded In a typical week, how many times do you talk on the phone with family, friends, or neighbors? Patient declined 10/02/2023 How often do you get togethe r with friends or relatives? Patient declined 10/02/2023 How often do you attend mandaeism or rastafarian serv ices? 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
--- OUTSIDE RECORDS SUMMARY | 2024-05-30 06:27 | XMS_ITS | Encounter Summary ---
Author Organization [facility] Address [address] [place] [address] Phone Care Team Providers Care Sander And Buffer Name Role Phone Leo Manzano MD Unavailable [phone] Carl Strickland MD Primary Care Provider Reason for Visit * Consultation (Routine) - Closed Specialty Diagnoses / Procedures Referred By Fernando alan Referred To Contact Nephrology Diagnoses Renal insufficiency Carl Strickland MD [address] [facility] [address] [place] [address] Phone: tel: fax: [facility] (All Locations) Referral ID Status Reason Start Date Expiration Date V isits Requested Visits Authorized [id number] Closed Specialty Services Required 10/07/2023 11/05/2024 1 1 Encounter Details Date Type Department Care Team (Late st Contact Info) Description 11/02/2023 1:00 PM CDT Office Visit [facility] Nephrology [address] [facility] 5[address] [place] [address] [place] [address] ANGI (acute kidney injury) (HCC) (Primary Dx); Renal insufficiency; Primary hypertension; Ureteral calculi Social History Tobacco Use Types Packs/Day Years Used Date Smoking Tobacco: Never Smokeless Tobacco: Never Alcohol Use Standard Drinks/Week Comments Not Currently 0 (1 standard drink = 0.6 oz pur e alcohol) [facility] Utilities Answer Date Recorded In [...] declined 10/02/2023 How often do you attend mu-ism or denominational serv ices? 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 No masses. SKIN: No rash FURNITURE MAKER: Alert Ox3. No focal motor deficits PSYCH: [...] Chronic Care Management No change(05/16 2:51 PM WINDOW SHADE CUTTER) No Rita Landa RN Note: Problem: Chronic [...] 11/02/2023 documented in this encounter Care Teams Sander And Buffer Relationship Specialty Start Date End Date Carl Strickland MD [address] [facility] [address] [place] [address] PCP - General Internal Medicine 06/06/23 Leo Manzano MD [id number] [place] [address] Surgeon Vascular Surgery 05/16/23 documented as of this encounter
--- OUTSIDE RECORDS SUMMARY | 2024-05-30 06:27 | XMS_ITS | Encounter Summary ---
Author Organization [facility] Healthcare Address [address] [place] [address] Care Team Providers Care Opal Miner Name Role Phone Leo Manzano MD Unavailable [phone] Carl Strickland MD Primary Care Provider Reason for Visit * Reason Comments Flank Pain * Auth/Cert (Routine) Specialty Diagnoses / Procedures Referred By Contac t Referred To Contact Diagnoses Ureteral calculi Procedures na Referral ID Status Reason Start Date Expiration Date Visits Re quested Visits Authorized [id number] 1 1 Encounter Details Date Type Department Care Team (Late st Contact Info) Description 09/27/2023 11:02 AM CDT - 09/27/2023 11:15 PM CDT Emergency [address] [id number] Heber Arroyo MD [address] [place] [address] Gricelda Atkins MD [address] [place] [id number] Ureteral calculi [N20.1] (Primary Dx); Flank pain; Right nephrolithiasis; ANGI (acute kidney injury) (HCC) Discharge Disposition: Left Against Medical Advice Social History Tobacco Use Types Packs/Day Years Used Date Smoking Tobacco: Never Smokeless Tobacco: Never Alcohol Use Standard Drinks/Week Comments Not Currently 0 (1 standard drink = 0.6 oz pur e alcohol) [facility] Utilities Answer Date Recorded In [...] declined 09/12/2023 How often do you attend restoration or spiritism serv ices? Patient declined 09/12/2023 Do you [...] on file Legal Sex Male 3:42 AM BUNDLE HELPER Gender Identity Not on file Sexual Orientation Straight 06/12/2023 11 :43 PM BUNDLE HELPER documented as of this encounter Last [...] 09/27/2023 Primary Care Physician: Carl Strickland MD [phone] SUBJECTIVE: 33-year-old male with history of aortic [...] CTA chest abdomen pelvis dated 09/26/2023 from [facility], CT dated 08/23/2023 from [facility] FINDINGS: Mild bibasilar atelectasis. Partially visualized aortic stent graft extending from the superior satfm-ck-ilaw in the thoracic aorta to the distal [...] no answer Will notify house security and casting house laborer Principal Problem: Ureteral calculi Full Code [...] 06/24/2023 Infrarenal abdominal aortic aneurysm, without rupture ([facility]) 06/13/2023 Polysubstance abuse (CMS/HCC) (HCC) 06/10/2023 Moderate [...] Medication protocol when under care of a TIRE RECAPPING MACHINE OPERATOR Planned anesthesia: General Team communication plan: LMA Induction: Induction: intravenous. Postoperative Plan: Postoperative administration opioids intended. No postoperative mechanical ventilation intended. Patient's planned disposition post procedure is Floor. Informed Consent: Discussed plan with TIRE RECAPPING MACHINE OPERATOR. Anesthesia plan and risks discussed with patient. [...] Glass MD - 09/27/2023 6:16 PM CDT [facility] Urology Consultation Reason for Consult: Right [...] function postoperatively Will follow Marcus Glass MD [facility] documented in this encounter ED [...] Hypokalemia 10/02/2023 ??? ANGI (acute kidney injury) ([facility]) 10/02/2023 ??? Syncope 10/02/2023 ??? Ureteral calculi 09/27/2023 ??? 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[facility]) 09/06/2023 ??? Back pain at L4-L5 level 08/23/2023 ??? PFO (patent foramen ovale) 07/05/2023 ??? Ureteral stone 07/04/2023 ??? Abdominal pain 07/04/2023 ??? Other chronic pain 06/24/2023 ??? Pseudoaneurysm following procedure (CMS/HCC) ([facility]) 06/24/2023 ??? Infrarenal abdominal aortic aneurysm, without rupture ([facility]) 06/13/2023 ??? Polysubstance abuse (CMS/HCC) ([facility]) 06/10/2023 ??? Moderate malnutrition (CMS/HCC) ([facility]) 06/09/2023 ??? Dissection of abdominal aorta (CMS/HCC) ([facility]) 06/03/2023 ??? Urinary retention 05/16/2023 ??? Epistaxis 05/13/2023 ??? Pneumonia 05/13/2023 ??? HTN (hypertension) 05/13/2023 ??? Dissection of thoracoabdominal aorta (CMS/HCC) ([facility]) 05/02/2023 ??? Dissection of aorta, unspecified portion of aorta ([facility]) 05/01/2023 Past Medical History: Diagnosis [...] alert. Psychiatric: Mood and Affect: Mood normal. [facility] Medical Decision Making 33-year-old with known renal [...] AM CDT States he was seen at [facility] yesterday and was told he has a 7mm stone in right kidney. States he was told he needs a stent placed, but [facility] does not have urology. Endorses dark urine, [...] started the case by inserting a 22 Kittitian cystoscope atraumatically into the bladder. Cystoscopydid not [...] was advanced into the renal pelvis. Five Kittitian open-ended catheter was advanced over the wire and retrograde pyelogram obtained. This showed stone in the proximal ureter with mild upstream hydronephrosis. The wire was replaced. An 11/13 Kittitian ureteral access sheath was advanced over the [...] Time Provider Department Center 10/07/2023 9:00 AM [facility] [id number] BJN US [facility] Main IMG 10/07/2023 10:00 AM Marcus Gamboa MD URO CAM 11C [facility] 10/14/2023 10:20 AM Marcus Gamboa MD URO CAM 11C [facility] 11/14/2023 1:30 PM Amanda Macias MD CAM PAIN [facility] CAM 11/23/2023 3:30 PM Joaquín Abarca MD CAR CAM 8B Cardiology 02/15/2024 12:00 PM [facility] [id number] [facility] CT [id number] 02/15/2024 1:00 PM Leo Manzano MD [facility] [id number] documented in [...] Chronic Care Management No change(05/16 2:51 PM BUNDLE HELPER) No Rita Landa, BRIA Note: Problem: [...] 1 Hour (09/27/2023 5:57 PM CDT) Narrative [facility] - 09/27/2023 5:57 PM CDT The images from this study are not interpreted by Radiology. ??Please refer to the physician's procedure / OR operative note. us Marcus Glass MD IMG FLUOROSCOPY PROCED URES Final Result [facility] * Stone analysis (09/27/2023 5:37 PM CDT) Stone analysis Not Reported Fraser ref Lab Source, Kid Stone Kidney [facility] Interp, Kid stone analysis See Footnote [facility] Comment:RESULT: 100% Calcium oxalate monohydrate. COMMENT See Footnote [facility] Comment: For stones containing calcium oxalate, calcium phosphate, and/or uric acid, a 24 hr urinary supersaturation test may help detect underlying risk factors for this type of stone formation and provide guidance for a stone prevention strategy. ADDITIONAL INFORMATION This test was developed and its performance characteristics determined by [facility] in a manner consistent with CLIA requirements. This test has not been cleared or approved by the U.S. Food and Drug Administration. Test Performed by: [facility] - [address] [address] Management Liaison: Chris Perez M.D. Ph.D.; CLIA# [id number] Stone 09/27/2023 5:37 PM CDT 09/28/2023 8:23 AM CDT Gricelda Atkins MD LAB URINE ORDERABLES Final Result [facility] [address] Department [place] [address] [facility] * (ABNORMAL) Urinalysis, microscopic only (09/27/2023 2:29 PM CDT) WBC, ur 0-5 0 - 5 /HPF RBC, ur 3-5(A) 0 - 2 /HPF [facility] Epithelial cells, squamous, ur 1-5 0 - 5 /HPF [facility] Mucous, ur Present(A) [facility] Hyaline casts, ur 1-5 0 - 10 /LPF [facility] Culture Reflex Comment Reflex conditions for urine culture (WBC >10) not met. [facility] Urine 09/27/2023 2:29 PM CDT 09/27/2023 2:39 PM CDT us Heber Arroyo MD LAB URINE ORDERABLES Final Result [facility] [address] [place] [address] * (ABNORMAL) Drugs of Abuse [...] Barbiturates, ur Not Detected CutOff 200ng/mL [facility] Comment: Interpretive Data - Barbiturates: ??Samples containing greater than 200 ng/mL secobarbital or other cross-reacting barbiturate compounds are reported as positive. ??False positive and false negative results are possible. Confirmatory testing required for definitive results. Current Interpretive Data was last reviewed 2022. Benzodiazepines, ur Not Detected CutOff 100ng/mL [facility] Comment: Interpretive Data - Benzodiazepines: ??Samples containing greater than 100 ng/mL nordiazepam or other cross-reacting compounds are reported as positive. False positive and false negative results are possible. Confirmatory testing required for definitive results. Current Interpretive Data was last reviewed 2022. Cannabinoids, ur Screen Positive, presumptive (A) CutOff 50 ng/mL [facility] Comment: Interpretive Data - Cannabinoids: ??Samples containing greater than 50 ng/mL delta-9 THC -COOH or other cross-reacting compounds are reported as positive. ??False positive and false negative results are possible. ??Confirmatory testing required for definitive results. Current Interpretive Data was last reviewed 2022. Cocaine, ur Not Detected CutOff 150ng/mL [facility] Comment: Interpretive Data - Cocaine: ??Samples containing greater than 150 ng/mL benzoylecgonine or other cross-reacting compounds are reported as positive. False positive and false negative results are possible. Confirmatory testing required for definitive results. Current Interpretive Data was last reviewed 2022. Fentanyl, Ur Not Detected CutOff 5 ng/mL [facility] Comment: Interpretive Data - Fentanyl: ?? Samples containing greater than 5 ng/mL norfentanyl, fentanyl, or other cross-reacting fentanyl compounds are reported as positive. False positive and false negative results are possible. Confirmatory testing required for definitive results. Current Interpretive Data was last reviewed 2023. Methadone, ur Not Detected CutOff 300ng/mL [facility] Comment: Interpretive Data - Methadone: ??Samples containing greater than 300 ng/mL d,l-methadone or other cross-reacting compounds are reported as positive. ??False positive and false negative results are possible. Confirmatory testing required for definitive results. Current Interpretive Data was last reviewed 2022. Opiates, ur Screen Positive, presumptive (A) CutOff 300ng/mL [facility] Comment: Interpretive Data - Opiates: ??Samples containing greater than 300 ng/mL morphine or other cross-reacting compounds are reported as positive. ??False positive and false negative results are possible. Confirmatory testing required for definitive results. Current Interpretive Data was last reviewed 2022. Oxycodone, ur Screen Positive, presumptive (A) CutOff 100ng/mL [facility] Comment: Interpretive Data - Oxycodone: ??Samples containing greater than 100 ng/mL oxycodone or other cross-reacting compounds are reported as ??positive. ??False positive and false negative results are possible. Confirmatory testing required for definitive results. Current Interpretive Data was last reviewed 2022. Phencyclidine, ur Not Detected CutOff 25 ng/mL [facility] Comment: Interpretive Data - Phencyclidine: ??Samples containing greater than 25 ng/mL phencyclidine or other cross-reacting compounds are reported as positive. ??False positive and false negative results are possible. Confirmatory testing required for definitive results. Current Interpretive Data was last reviewed 2022. Urine Creatinine 173 mg/dL [facility] Comment: Interpretive Data Urine Creatinine: < 10 mg/dL is extremely dilute = or > 10 but < 20 mg/dL is dilute = or > 20 mg/dL is normal Current Interpretive Data was last revised on 2017. Urine 09/27/2023 2:29 PM CDT 09/27/2023 2:40 PM CDT Narrative [facility] - 09/27/2023 3:12 PM CDT Drug of Abuse screening is performed by immunoassay for medical purposes only. ??This is not to be used for Pain Management purposes. Heber Arroyo MD LAB URINE ORDERABLES Final Result [facility] [address] [place] [address] * (ABNORMAL) Urinalysis reflex to microscopic and culture Urine (09/27/2023 2:29 PM CDT) Color, ur Yellow Yellow Clarity, ur Clear Clear [facility] Specific gravity, ur 1.024 1.003 - 1.030 [facility] pH, urine 6.0 [facility] Comment: Interpretive Data ? Urine pH is affected by diet, medications, systemic acid-base disturbances, and renal tubular function. ??pH may affect urinary stone formation. ??For example, urine pH below 6.0 may help reduce the tendency for calcium phosphate stones and pH greater than 6.0 may reduce the tendency for uric acid stone formation. Source: [facility] Current Interpretive Data was last revised on 2017 Protein, ur ql 1+(A) Negative [facility] Glucose, ur ql Negative Negative [facility] Ketones, ur Negative Negative [facility] Bilirubin, ur Negative Negative [facility] Blood, ur Negative Negative [facility] Urobilinogen, ur <2.0 <2.0 mg/dL [facility] Nitrite, ur Negative Negative [facility] Leukocyte esterase, ur Negative Negative [facility] UA reflex comment Reflex to microscopic UA will be performed. [facility] Urine 09/27/2023 2:29 PM CDT 09/27/2023 2:40 PM CDT Heber Arroyo MD LAB MICROBIOLOGY - GENERAL ORDERABLES Final Result [facility] [address] [place] [address] * CT Abdomen Pelvis WO Contrast (09/27/2023 [...] CTA chest abdomen pelvis dated 09/26/2023 from [facility], CT dated 08/23/2023 from [facility] FINDINGS: ?? Mild bibasilar atelectasis. Partially visualized aortic stent graft extending from the superior sgaei-tw-szhh in the thoracic aorta to the distal [...] CTA chest abdomen pelvis dated 09/26/2023 from [facility], CT dated 08/23/2023 from [facility] FINDINGS: Mild bibasilar atelectasis. Partially visualized aortic stent graft extending from the superior orxrp-am-gguy in the thoracic aorta to the distal [...] * (ABNORMAL) eGFR (09/27/2023 12:16 PM CDT) [facility] Signature eGFR 42(L) >=60 mL/min/1. 73 [...] MD LAB BLOOD ORDERABLES Final Result [facility] [address] Department [place] [address] * (ABNORMAL) Differential, auto (09/27/2023 12:16 PM CDT) Neutrophil abs 9.2(H) 1.5 - 6.5 K/cumm Imm gran abs 0.1 0.0 - 0.1 K/cumm [facility] Lymphocyte abs 1.0 0.8 - 3.3 K/cumm [facility] Monocyte abs 1.3(H) 0.2 - 0.8 K/cumm [facility] Eosinophil abs 0.0 0.0 - 0.5 K/cumm [facility] Basophil abs 0.1 0.0 - 0.1 K/cumm [facility] Neutrophil pct 78.9 % [facility] Comment: Interpretive Data Percent cell count reference ranges are not reported, since discordance with absolute values may lead to misinterpretation of CBC data. Current Interpretive Data was last revised on 2017. Imm gran pct 0.6 % [facility] Comment: Interpretive Data Percent cell count reference ranges are not reported, since discordance with absolute values may lead to misinterpretation of CBC data. Current Interpretive Data was last revised on 2017. Lymphocyte pct 8.9 % [facility] Comment: Interpretive Data Percent cell count reference ranges are not reported, since discordance with absolute values may lead to misinterpretation of CBC data. Current Interpretive Data was last revised on 2017. Monocyte pct 10.9 % [facility] Comment: Interpretive Data Percent cell count reference ranges are not reported, since discordance with absolute values may lead to misinterpretation of CBC data. Current Interpretive Data was last revised on 2017. Eosinophil pct 0.3 % [facility] Comment: Interpretive Data Percent cell count reference ranges are not reported, since discordance with absolute values may lead to misinterpretation of CBC data. Current Interpretive Data was last revised on 2017. Basophil pct 0.4 % [facility] Comment: Interpretive Data Percent cell count reference ranges are not reported, since discordance with absolute values may lead to misinterpretation of CBC data. Current Interpretive Data was last revised on 2017. Blood 09/27/2023 12:1 6 PM CDT 09/27/2023 12:30 PM CDT us Heber Arroyo MD LAB BLOOD ORDERABLES Final Result [facility] [address] [place] [address] * (ABNORMAL) CBC with auto differential (09/27/2023 12:16 PM CDT) WBC 11.7(H) 3.8 - 9.9 K/cumm Hgb 11.7(L) 13.0 - 17.5 g/dL [facility] Hct 36.9(L) 38.9 - 50.3 % [facility] Plt 267 150 - 400 K/cumm [facility] MPV 9.1 9.1 - 12.3 fL [facility] RBC 4.01(L) 4.30 - 5.80 M/cumm [facility] MCV 92.0 81.3 - 96.4 fL [facility] MCH 29.2 27.1 - 33.3 pg [facility] MCHC 31.7(L) 32.3 - 35.7 g/dL [facility] RDW CV 15.8(H) 11.1 - 14.9 % [facility] RDW SD 53.6(H) 35.7 - 48.1 fL [facility] NRBC abs 0.00 0.00 - 0.01 K/cumm [facility] Blood (Blood, Venous) 09/27/2023 12:16 PM CDT 09/27/2023 12:30 PM CDT us Heber Arroyo MD LAB BLOOD ORDERABLES Final Result [facility] [address] Department [place] [address] * (ABNORMAL) Basic metabolic panel (09/27/2023 12:16 PM CDT) Sodium 139 135 - 145 mmol/L Potassium, pl 4.1 3.3 - 4.9 mmol/L [facility] Chloride 105 97 - 110 mmol/L [facility] CO2 22 22 - 32 mmol/L [facility] Anion gap 12 2 - 15 mmol/L [facility] BUN 25 6 - 25 mg/dL [facility] Creatinine 2.12(H) 0.80 - 1.30 mg/dL [facility] Glucose 96 70 - 199 mg/dL [facility] Comment: Interpretive Data Fasting glucose >/= 126 [...] 2022. Calcium 9.2 8.5 - 10.3 mg/dL [facility] Blood 09/27/2023 12:1 6 PM CDT 09/27/2023 12:31 PM CDT us Heber Arroyo MD LAB BLOOD ORDERABLES Final Result [facility] [address] Department [place] [address] documented in this encounter Visit Diagnoses Diagnosis [...] Transfer Provider - Reason: Patient not available)2006 ([facility] Unhold - Provider: Automatic Transfer Provider)2026 [...] Rivera, BRIA - Comment: ok'ed by provider)1539 ([facility] Hold - Provider: Automatic Transfer Provider - Reason: Patient not available)2006 ([facility] Unhold - Provider: Automatic Transfer Provider) [...] Glass MD - Comment: 3,000 prn for [id number] prn on sterile field) Linked Groups Order [...] 09/27/2023 documented in this encounter Care Teams Opal Miner Relationship Specialty Start Date End Date Carl Strickland MD [address] [facility] [address] [place] [address] PCP - General Internal Medicine 06/06/23 Leo Manzano MD [address] [facility] [id number] [place] [address] Surgeon Vascular Surgery 05/16/23 documented as of this encounter
--- OUTSIDE RECORDS SUMMARY | 2024-05-30 06:27 | XMS_ITS | Encounter Summary ---
Author Organization [facility] Healthcare Address [address] [place] [address] Care Team Providers Care Powder Monkey Name Role Phone Leo Manzano MD Unavailable [phone] Carl Strickland MD Primary Care Provider Reason for Visit * Auth/Cert (Routine) Specialty Diagnoses / Procedures Referred By Contac t Referred To Contact Diagnoses Pyelonephritis Procedures NA Referral ID Status Reason Start Date Expiration Date Visits Re quested Visits Authorized [id number] 1 1 Encounter Details Date Type Department Care Team (Late st Contact Info) Description 10/04/2023 7:16 AM CDT Anesthesia Event [facility] Operating Room [address] [place] [address] Marina Chandler MD [facility] [facility] [address] Rahul Naranjo MD [address] [place] [address] Anesthesia Record Procedure Summary Procedure Name Responsible [...] Pe nis; 05/01/24 (Retired LDA, Removed/Completed by [facility] with LDA Utility); 1213 (Retired LDA, Removed/Completed by [facility] with LDA Utility) 09/27/23 1547 by [...] ; Penis; 05/01/24 (Retired LDA, Removed/Completed by [facility] with LDA Utility); 1213 (Retired LDA, Removed/Completed by [facility] with LDA Utility) 10/04/23 0740 by Marni Sears RN 05/01/24 1213 by Discharge Provider, Automatic documented in this encounter Social History Tobacco Use Types Packs/Day Years Used Date Smoking Tobacco: Never Smokeless Tobacco: Never Alcohol Use Standard Drinks/Week Comments Not Currently 0 (1 standard drink = 0.6 oz pur e alcohol) [facility] Utilities Answer Date Recorded In the past 12 months has [employer], gas, oil, or water [employer] threatened to shut off services in your home? Patient declined 10/02/2023 Social Connection and Isolation Panel [NHANES] A nswer Date Recorded In a typical week, how many times do you talk on the phone with family, friends, or neighbors? Patient declined 10/02/2023 How often do you get togethe r with friends or relatives? Patient declined 10/02/2023 How often do you attend presybeterian or holiness serv ices? 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 Gender Identity Not on file Sexual Orientation Straight 06/12/2023 11 :43 PM COMMERCIAL FOOD INSTRUCTOR documented as of this encounter OR Notes * Anesthesia Postprocedure Evaluation - Nick Dan MD - 10/04/2023 8:45 AM CDT Patient: Eriberto Chau Procedure Summary Date: 10/04/23 Room / Location: [facility] ROOM / [facility] OPERATING ROOM Anesthesia Start: 715 Anesthesia Stop: [...] Other chronic pain 06/24/2023 Pseudoaneurysm following procedure ([facility]) ([facility]) 06/24/2023 Infrarenal abdominal aortic aneurysm, without rupture ([facility]) 06/13/2023 Polysubstance abuse ([facility]) ([facility]) 06/10/2023 Moderate malnutrition ([facility]) ([facility]) 06/09/2023 Dissection of abdominal aorta ([facility]) ([facility]) 06/03/2023 Urinary retention 05/16/2023 Epistaxis 05/13/2023 Pneumonia 05/13/2023 HTN (hypertension) 05/13/2023 Dissection of thoracoabdominal aorta ([facility]) ([facility]) 05/02/2023 Dissection of aorta, unspecified portion of aorta ([facility]) 05/01/2023 Past Medical History: Diagnosis Date Abdominal pain Anxiety Aortic dissection ([facility]) Depression Hypertension Kidney stones Memory loss Past Surgical History: Procedure Laterality Date ABDOMINAL AORTIC ANEURYSM REPAIR Allergies Allergen Reactions Lisinopril Angioedema Amoxicillin Hives Med List Status: Pharmacy Complete Set By: Lashaun Stoner [facility] at 10/02/2023 2:58 PM Taking? Last Dose [...] Medication protocol when under care of a EMPLOYMENT SERVICE SPECIALIST Planned anesthesia: General Team communication plan: LMA Induction: Induction: intravenous. Postoperative Plan: Postoperative administration opioids intended. No postoperative mechanical ventilation intended. Patient's planned disposition post procedure is Floor. Informed Consent: Discussed plan with EMPLOYMENT SERVICE SPECIALIST. Anesthesia plan and risks discussed with patient. [...] Chronic Care Management No change(05/16 2:51 PM COMMERCIAL FOOD INSTRUCTOR) No Rita Landa RN Note: Problem: Chronic Pain Goals: 1. Minimize further functional decline 2. Maximize quality of life 3. Control pain Strategies: - Activity/exercise program recommendation - Conservative stepwise pain medicine strategy with multi-disciplinary approach - Recommend healthy lifestyle strategies and compensatory methods as needed documented as of this encounter Procedures Procedure Name Priority Date/Time Associated Diagnosis Comments NH AN PROCEDURE PLACEHOLDER Routine 10/04/2023 7:33 AM CDT NH AN ELECTIVE SUPRAGLOTTIC AIRWAY Routine 10/04/2023 7:33 AM CDT documented in this encounter Results * NH AN ELECTIVE SUPRAGLOTTIC AIRWAY, NH AN PROCEDURE PLACEHOLDER (10/04/2023 7:33 AM CDT) [...] mg documented in this encounter Care Teams Powder Monkey Relationship Specialty Start Date End Date Carl Strickland MD [address] [facility] [address] [place] [address] PCP - General Internal Medicine 06/06/23 Leo Manzano MD [address] [facility] [address] [place] [address] Surgeon Vascular Surgery 05/16/23 documented as of this encounter
--- OUTSIDE RECORDS SUMMARY | 2024-05-30 06:27 | XMS_ITS | Encounter Summary ---
Author Organization [facility] Healthcare Address [address] [place] [address] Care Team Providers Care Associate School Psychologist Name Role Phone Leo Manzano MD Unavailable [phone] Carl Strickland MD Primary Care Provider Reason for Referral * Diagnostic Imaging (Routine) - Closed Specialty Diagnoses / Procedures Referred By Fernando alan Referred To Contact Diagnoses Nephrolithiasis Procedures US Kidney Complete Marcus Gamboa MD Phone: tel: fax: [address] [phone] Referral ID Status Reason Start Date Expiration Date Visits Re quested Visits Authorized [id number] Closed 07/06/2023 08/04/2024 1 1 Reason for Visit * Diagnostic Imaging (Routine) - Closed Specialty Diagnoses / Procedures Referred By Fernando alan Referred To Contact Diagnoses Nephrolithiasis Procedures US Kidney Complete Marcus Gamboa MD Phone: tel: fax: [address] [phone] Referral ID Status Reason Start Date Expiration Date Visits Re quested Visits Authorized [id number] Closed 07/06/2023 08/04/2024 1 1 Encounter Details Date Type Department Care Team (Latest Contact Info) Description 10/07/2023 8:33 AM CDT - 10/07/2023 11:59 PM CDT Hospital Encounter [facility] [address] [place] [address] Nephrolithiasis Discharge Disposition: Discharge to home or [...] declined 10/02/2023 How often do you attend roman catholic or faith serv ices? Patient declined 10/02/2023 Do you belong to any clubs o r organizations such as roman catholic groups, unions, fraternal or athletic groups, [...] or slept in a fpc (including now)? Patient declined 10/02/2023 Personal Safety Answer Date Recorded Have you ever been in or are you currently in a harmful physical or emotional relationship or is someone making you feel afraid or unsafe? Denies 10/04/2023 Sex and Gender Information Value Date Recorded Sex Assigned at Not on file Legal Sex Male 3:42 AM ALUM OPERATOR Gender Identity Not on file Sexual Orientation Straight 06/12/2023 11 :43 PM ALUM OPERATOR documented as of this encounter Medications at [...] Chronic Care Management No change(05/16 2:51 PM ALUM OPERATOR) No Rita Landa, RN Note: Problem: [...] visualized. Electronically signed by: Tiffany Sosa M.D. [facility] Qiana Gamboa MD [facility] US PROCEDURES F inal Result documented in this encounter Visit Diagnoses Diagnosis Nephrolithiasis Calculus of kidney documented in this encounter Care Teams Associate School Psychologist Relationship Specialty Start Date End Date Carl Strickland MD [address] [facility] [address] [place] [address] PCP - General Internal Medicine 06/06/23 Leo Manzano MD [address] [place] [address] Surgeon Vascular Surgery 05/16/23 documented as of this encounter
--- OUTSIDE RECORDS SUMMARY | 2024-05-30 06:28 | XMS_ITS | Encounter Summary ---
Author Organization [facility] Address [address] [place] [address] Phone Care Team Providers Care Lacquerer Name Role Phone Leo Manzano MD Unavailable [phone] Carl Strickland MD Primary Care Provider Encounter Details Date Type Department Care Team (Late st Contact Info) Description 07/18/2023 Telephone [facility] Surgery [address] [place] [address] Social History Tobacco Use Types Packs/Day Years Used Date Smoking Tobacco: Never Smokeless Tobacco: Never Alcohol Use Standard Drinks/Week Comments Not Currently 0 (1 standard drink = 0.6 oz pur e alcohol) [facility] Utilities Answer Date Recorded In the past 12 months has [employer], gas, oil, or water [employer] threatened to shut off services in your [...] week 07/06/2023 How often do you attend [facility] or yarsanism services? More than 4 times per year 07/06/2023 Do you belong to any clubs o r organizations such as jewish groups, unions, fraternal or athletic groups, or [...] or slept in a assisted (including now)? No 07/06/2023 Personal Safety Answer Date Recorded Getting School Help Needed Denies 05/09 Sex and Gender Information Value Date Recorded Sex Assigned at Not on file Legal Sex Male 3:42 AM MANAGER LIBRARY Gender Identity Not on file Sexual Orientation Straight 06/12/2023 11 :43 PM MANAGER LIBRARY documented as of this encounter Miscellaneous Notes * Telephone Encounter - Kathy Boudreaux RMA - 07/19/2023 8:29 AM CST I spoke with Eriberto Lal's mother, he did receive the first container but messed them up. I have requested a second container GER LIBRARY * Telephone Encounter - [address] - 07/18/2023 3:51 PM CST Date: 07/18/2023 Reason for Call: Patient's mother calling to request a new 24 hr urine test kit. Patient Provider: [facility] Information: Outcome/Plan: GER LIBRARY documented in this encounter Plan of Treatment Not on file documented as of this encounter Visit Diagnoses Not on filedocumented in this encounter Care Teams Lacquerer Relationship Specialty Start Date End Date Carl Strickland MD [address] [facility] [address] [place] [address] PCP - General Internal Medicine 06/06/23 Leo Manzano MD [address] [place] [address] Surgeon Vascular Surgery 05/16/23 documented as of this encounter
--- OUTSIDE RECORDS SUMMARY | 2024-05-30 06:28 | XMS_ITS | Encounter Summary ---
Author Organization [facility] Healthcare Address [address] [place] [address] Care Team Providers Care Dry Lumber Grader Name Role Phone Leo Manzano MD Unavailable [phone] Carl Strickland MD Primary Care Provider Encounter Details Date Type Department Care Team (Late st Contact Info) Description 09/08/2023 Orders Only [facility] [address] [facility] [address] [place] [address] Ronald Dimas MD [address] [place], [place] [id number] Social History Tobacco Use Types Packs/Day Years Used Date Smoking Tobacco: Never Smokeless Tobacco: Never Alcohol Use Standard Drinks/Week Comments Not Currently 0 (1 standard drink = 0.6 oz pur e alcohol) [facility] Utilities Answer Date Recorded In the past 12 months has [employer] electric, gas, oil, or water company threatened [...] often do you attend chur ch or anabaptist services? More than 4 times per year [...] slept in a jail (including now)? No 07/06/2023 Personal Safety Answer Date Recorded Have you ever been in or are you currently in a harmful physical or emotional relationship or is someone making you feel afraid or unsafe? Denies 09/05/2023 Sex and Gender Information Value Date Recorded Sex Assigned at Not on file Legal Sex Male 3:42 AM LEVEL VIAL INSIDE GRINDER Gender Identity Not on file Sexual Orientation Straight 06/12/2023 11 :43 PM LEVEL VIAL INSIDE GRINDER documented as of this encounter Plan of [...] approved IVD kit and validated by the [facility] HLA laboratory. Interpretive comments: HLA-B*27 positivity confers [...] J Med 2016;374:2563-74) Testing performed at the [facility], [address] [place] [address], 5th floor, [place], [address]. IA # [id number]. Oscar Ross M.D., Ph.D., HLA Managing Principal Sierra Gonzalez, Ph.D., Machine Riveter, [facility] Clinical Laboratories Current methodology and interpretive comments were last revised on 12/20/2016 us Ronald Dimas MD LAB BLOOD ORDERABLES Final Result HISTOTRAC documented in this encounter Visit Diagnoses Not on filedocumented in this encounter Care Teams Dry Lumber Grader Relationship Specialty Start Date End Date Carl Strickland MD [address] [facility] [address] [place] [address] PCP - General Internal Medicine 06/06/23 Leo Manzano MD [address] [place] [address] Surgeon Vascular Surgery 05/16/23 documented as of this encounter
--- OUTSIDE RECORDS SUMMARY | 2024-05-30 06:28 | XMS_ITS | Encounter Summary ---
Author Organization [facility] Address [address] [place] [address] Phone Care Team Providers Care Roof Bolter Helper Name Role Phone Leo Manzano MD Unavailable [phone] Carl Strickland MD Primary Care Provider Encounter Details Date Type Department Care Team (Late st Contact Info) Description 07/06/2023 Telephone [facility] Urology [address] [facility] [address] [place] [address] Kathy Boudreaux RMA Social History Tobacco Use Types Packs/Day Years Used Date Smoking Tobacco: Never Smokeless Tobacco: Never Alcohol Use Standard Drinks/Week Comments Not Currently 0 (1 standard drink = 0.6 oz pur e alcohol) [facility] Utilities Answer Date Recorded In the past 12 months has [employer] electric, gas, oil, or water company threatened [...] often do you attend chur ch or mormonism services? More than 4 times per year 07/06/2023 Do you belong to any clubs o r organizations such as religion groups, unions, fraternal or athletic groups, or [...] or slept in a detention (including now)? No 07/06/2023 Personal Safety Answer Date Recorded Getting School Help Needed Denies 05/09 Sex and Gender Information Value Date Recorded Sex Assigned at Not on file Legal Sex Male 3:42 AM TELEVISION SERVICE ENGINEER Gender Identity Not on file Sexual Orientation Straight 06/12/2023 11 :43 PM TELEVISION SERVICE ENGINEER documented as of this encounter Miscellaneous Notes * Telephone Encounter - Kathy Boudreaux RMA - 07/06/2023 11:38 AM CST Appointments scheduled and reminder letters mailed VISION SERVICE ENGINEER * Telephone Encounter - Kathy Boudreaux RMA - 07/06/2023 11:38 AM CST ----- Message from Marcus Gamboa MD sent at 07/04/2023 8:58 PM TELEVISION SERVICE ENGINEER ----- Regarding: stone I did a ureteroscopy for kidney stones on this patient today. Can you please have him come to the office in 1-2 weeks for cysto with stent removal (OK for me or SUPERVISOR CASE LOADING/PA), get 2x litholinks, and follow up 3 months with renal ultrasound? VISION SERVICE ENGINEER documented in this encounter Plan of Treatment Not on file documented as of this encounter Visit Diagnoses Not on filedocumented in this encounter Care Teams Roof Bolter Helper Relationship Specialty Start Date End Date Carl Strickland MD [address] [facility] 1 [place] [address] PCP - General Internal Medicine 06/06/23 Leo Manzano MD [address] [facility] [address] [place] [address] Surgeon Vascular Surgery 05/16/23 documented as of this encounter
--- OUTSIDE RECORDS SUMMARY | 2024-05-30 06:28 | XMS_ITS | Encounter Summary ---
Author Organization [facility] Healthcare Address [address] [facility] [place] [address] Care Team Providers Care Supervisor Smoke Control Name Role Phone Leo Manzano MD Unavailable [phone] Carl Strickland MD Primary Care Provider Reason for Visit * Reason Comments Abdominal Pain Vomiting Encounter Details Date Type Department Care Team (Late st Contact Info) Description 07/26/2023 3:46 PM FLORAL ASSISTANT - 07/26/2023 9:58 PM FLORAL ASSISTANT Emergency [facility] Emergency Department [address] [place] [address] Nigel Ramsey MD [address] [place] [address] Abdominal pain (Primary Dx); Nausea and vomiting, unspecified vomiting type Discharge Disposition: Discharge to home or self care Social History Tobacco Use Types Packs/Day Years Used Date Smoking Tobacco: Never Smokeless Tobacco: Never Alcohol Use Standard Drinks/Week Comments Not Currently 0 (1 standard drink = 0.6 oz pur e alcohol) [facility] Utilities Answer Date Recorded In the past [...] often do you attend chur ch or episcopal services? More than 4 times per year 07/06/2023 Do you belong to any clubs o r organizations such as sikh groups, unions, fraternal or athletic groups, or [...] on file Legal Sex Male 3:42 AM FLORAL ASSISTANT Gender Identity Not on file Sexual Orientation Straight 06/12/2023 11 :43 PM FLORAL ASSISTANT documented as of this encounter Last Filed Vital Signs Vital Sign Reading Time Taken Comments Blood Pressure 132/97 07/26/2023 7:30 PM FLORAL ASSISTANT Pulse 90 07/26/2023 7:30 PM FLORAL ASSISTANT Temperature 36.6 ??C (97.9 ??F) 07/26/2023 2:43 PM CS T Respiratory Rate 10 07/26/2023 7:30 PM FLORAL ASSISTANT Oxygen Saturation 96% 07/26/2023 7:30 PM FLORAL ASSISTANT Inhaled Oxygen Concentration - - Weight 97.5 kg (215 lb) 07/26/2023 2:43 PM FLORAL ASSISTANT Height 175.3 cm (5' 9 ) 07/26/2023 2:43 PM FLORAL ASSISTANT Body Mass Index 31.75 07/26/2023 2:43 PM FLORAL ASSISTANT documented in this encounter Discharge Instructions * Discharge Instructions* Claudia Monk MD - 07/26/2023 9:33 PM FLORAL ASSISTANT Today we evaluated you for abdominal pain. [...] and take all other medications as prescribed. 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 Abarca, establishing care with pain management [...] Kaylie Cook MD at 07/27/2023 3:18 PM FLORAL ASSISTANT AL ASSISTANT AL ASSISTANT documented in this encounter ED Notes * [...] abdominal aortic aneurysm, without rupture ([facility]) 06/13/2023 Polysubstance abuse (CMS/HCC) ([facility]) 06/10/2023 Moderate malnutrition (CMS/HCC) ([facility]) 06/09/2023 Dissection of abdominal aorta (CMS/HCC) ([facility]) 06/03/2023 Urinary retention 05/16/2023 Epistaxis 05/13/2023 Pneumonia 05/13/2023 HTN (hypertension) 05/13/2023 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 Psychiatric: Mood and Affect: Mood normal. [facility] Medical Decision Making 33-year-old male with history [...] Hgb baseline 8-9, possible hemoconcentration component By: Clauida Monk MD Time: 07/26 1634 Comment: Attending [...] evaluation. By: Nigel Ramsey MD Time: 07/26 6775 Value: Influenza A/B, RSV, and COVID-19 PCR Nasopharyngeal: COVID-19 RNA Negative Influenza A RNA Negative Influenza B RNA Negative RSV RNA Negative Comment: (Reviewed) By: Claudia Monk MD Time: 07/26 5657 Comment: CTA Final: 1. Redemonstrated thoracoabdominal aortic [...] Nigel Ramsey MD at 07/29/2023 10:00 AM FLORAL ASSISTANT AL ASSISTANT AL ASSISTANT Associated attestation - Nigel Ramsey MD - 07/29/2023 10:00 AM FLORAL ASSISTANT I have seen and examined the patient on 07/26/2023. I agree with the findings and plan of care as documented in the resident's note. * Jennifer Perez RN - 07/26/2023 3:46 PM CST Bed: ED2-19 Expected date: Expected time: Means of arrival: Car Comments: Jennifer Perez RN 07/26/23 1546 AL ASSISTANT * Allison Kay RN - 07/26/2023 2:43 [...] has been in contact with her. AxO4. AL ASSISTANT AL ASSISTANT documented in this encounter Miscellaneous Notes * [...] Interpretation: abnormal Shannon Herzog MD 07/26/23 1505 AL ASSISTANT documented in this encounter Plan of Treatment Not on file documented as of this encounter Procedures Procedure Name Priority Date/Time Associated Diagnosis Comments TROPONIN I HIGH-SENSITIVITY 2-HOUR Timed 07/26/2023 5:16 PM FLORAL ASSISTANT CTA CHEST ABDOMEN PELVIS ED 07/26/2023 5:03 PM FLORAL ASSISTANT INFLUENZA A/B, RSV, AND COVID-19 PCR Routine 07/26/2023 3:10 PM FLORAL ASSISTANT TROPONIN I HIGH-SENSITIVITY SERIES (BASELINE, 2HR, 4HR, 6HR) STAT 07/26/2023 3:10 PM FLORAL ASSISTANT EGFR STAT 07/26/2023 3:10 PM FLORAL ASSISTANT DIFFERENTIAL AUTO STAT 07/26/2023 3:1 0 PM FLORAL ASSISTANT CBC WITH AUTO DIFFERENTIAL STAT 07/26/2023 3:10 PM FLORAL ASSISTANT LIPASE STAT 07/26/2023 3:10 PM FLORAL ASSISTANT COMPREHENSIVE METABOLIC PANEL STAT 07/26/2023 3:10 PM FLORAL ASSISTANT ECG 12-LEAD STAT 07/26/2023 3:02 PM FLORAL ASSISTANT documented in this encounter Results * Troponin I high-sensitivity 2-hour (07/26/2023 5:16 PM FLORAL ASSISTANT) Trop I hs <4 <=35 ng/L [facility] ERWIN Comment: Interpretive Data For further hscTnI resources including the diagnostic algorithm and an aid in interpretation, copy and paste this link: https://bjhlab.testcatalog.org/show/hsTrop-1 Current Interpretive Data last revised 2019. Trop I hs delta 0 ng/L [facility] Trop I hs interp Insignificant [facility] H Blood 07/26/2023 5:16 PM FLORAL ASSISTANT 07/26/2023 5:33 PM FLORAL ASSISTANT [facility] Taco Navarro MD LAB BLOOD ORDERABLES [facility] al Result [facility] Department [place] [address] * CTA Chest Abdomen Pelvis (07/26/2023 5:03 PM FLORAL ASSISTANT) Anatomical Region Laterality Modality Body N/A Computed Tomogra phy 07/26/2023 5:42 PM FLORAL ASSISTANT Impressions 07/26/2023 5:50 PM FLORAL ASSISTANT 1. ??Redemonstrated thoracoabdominal aortic dissection managed with [...] Roldan Harrison M.D. Narrative 07/26/2023 5:50 PM FLORAL ASSISTANT EXAMINATION: ??CT ANGIOGRAPHY OF THE CHEST, ABDOMEN [...] pelvis. No suspicious osseous lesions. Procedure Note Roldan Harrison MD - 07/26/2023 EXAMINATION: CT ANGIOGRAPHY [...] and COVID-19 PCR Nasopharyngeal (07/26/2023 3:10 PM FLORAL ASSISTANT) COVID-19 RNA Negative Negative [facility] Influenza A RNA Negative Negative [facility] Influenza B RNA Negative Negative [facility] RSV RNA Negative Negative [facility] Comment: Interpretive data: Testing performed by [facility] ([phone]). This test is performed using the [employer]TS[employer] Xpress CoV-2/Flu/RSV plus assay. This is a multiplex, real-time reverse transcriptase PCR assay intended for the qualitative detection of nucleic acid from SARS-CoV-2, influenza A, influenza B, and respiratory syncytial virus. This assay has been cleared by the [place] Food and Drug administration. The performance characteristics have been verified by the [facility]. ??Results must be considered in the clinical context, and a negative result does not rule out infection. Interpretive Data last revised 2023 Nasopharyngeal 07/26/2023 3: 10 PM FLORAL ASSISTANT 07/26/2023 4:17 PM FLORAL ASSISTANT us Nigel Ramsey MD LAB MICROBIOLOGY - NERAL ORDERABLES Final Result [facility] Department [place] [address] * eGFR (07/26/2023 3:10 PM FLORAL ASSISTANT) eGFR 82 >=60 mL/min/1. 73 m2 JAIRON [...] last reviewed 2021. Blood 07/26/2023 3:10 PM FLORAL ASSISTANT 07/26/2023 3:28 PM FLORAL ASSISTANT Guille Navarro MD LAB BLOOD ORDERABLES Fin al Result [facility] Department [place] [address] * (ABNORMAL) Differential, auto (07/26/2023 3:10 PM FLORAL ASSISTANT) Neutrophil abs 8.0(H) 1.5 - 6.5 K/cumm [facility] Imm gran abs 0.1 0.0 - 0.1 K/cumm [facility] Lymphocyte abs 1.0 0.8 - 3.3 K/cumm [facility] Monocyte abs 0.5 0.2 - 0.8 K/cumm [facility] Eosinophil abs 0.0 0.0 - 0.5 K/cumm [facility] Basophil abs 0.0 0.0 - 0.1 K/cumm [facility] Neutrophil pct 83.4 % [facility] Comment: Interpretive Data Percent cell count reference ranges are not reported, since discordance with absolute values may lead to misinterpretation of CBC data. Current Interpretive Data was last revised on 2017. Imm gran pct 0.7 % [facility] Comment: Interpretive Data Percent cell count reference ranges are not reported, since discordance with absolute values may lead to misinterpretation of CBC data. Current Interpretive Data was last revised on 2017. Lymphocyte pct 10.5 % [facility] Comment: Interpretive Data Percent cell count reference ranges are not reported, since discordance with absolute values may lead to misinterpretation of CBC data. Current Interpretive Data was last revised on 2017. Monocyte pct 4.9 % [facility] Comment: Interpretive Data Percent cell count reference ranges are not reported, since discordance with absolute values may lead to misinterpretation of CBC data. Current Interpretive Data was last revised on 2017. Eosinophil pct 0.1 % [facility] Comment: Interpretive Data Percent cell count reference ranges are not reported, since discordance with absolute values may lead to misinterpretation of CBC data. Current Interpretive Data was last revised on 2017. Basophil pct 0.4 % [facility] Comment: Interpretive Data Percent cell count reference ranges are not reported, since discordance with absolute values may lead to misinterpretation of CBC data. Current Interpretive Data was last revised on 2017. Blood 07/26/2023 3:10 PM FLORAL ASSISTANT 07/26/2023 3:27 PM FLORAL ASSISTANT Nigel Ramsey MD LAB BLOOD ORDERABLES Final Result Performing Organization Address [facility] Co de Phone Number [facility] [place] [address] * Troponin I high-sensitivity series (baseline, 2hr, 4hr, 6hr) (07/26/2023 3:10 PM FLORAL ASSISTANT) Trop I hs <4 <=35 ng/L [facility] Comment: Interpretive Data For further hscTnI resources including the diagnostic algorithm and an aid in interpretation, copy and paste this link: https://bjhlab.testcatalog.org/show/hsTrop-1 Current Interpretive Data last revised 2019. Blood 07/26/2023 3:10 PM FLORAL ASSISTANT 07/26/2023 3:27 PM FLORAL ASSISTANT Nigel Ramsey MD LAB BLOOD ORDERABLES Final Result Performing Organization Address [facility] Co de Phone Number [facility] [place] [address] * Lipase (07/26/2023 3:10 PM FLORAL ASSISTANT) Lipase 14 10 - 99 Units/L [facility] Blood (Blood, Venous) 07/26/2023 3:10 PM FLORAL ASSISTANT 07/26/2023 3:28 PM FLORAL ASSISTANT us Nigel Ramsey MD LAB BLOOD ORDERABLES Final Result [facility] Department [place] [address] * (ABNORMAL) Comprehensive metabolic panel (07/26/2023 3:10 PM FLORAL ASSISTANT) Sodium 137 135 - 145 mmol/L [facility] Potassium, pl 3.7 3.3 - 4.9 mmol/L [facility] Chloride 101 97 - 110 mmol/L [facility] CO2 21(L) 22 - 32 mmol/L [facility] Anion gap 15 2 - 15 mmol/L [facility] BUN 16 6 - 25 mg/dL [facility] Creatinine 1.21 0.80 - 1.30 mg/dL [facility] Glucose 130 70 - 199 mg/dL [facility] Comment: Interpretive Data Fasting glucose >/= [...] 2022. Calcium 10.8(H) 8.5 - 10.3 mg/dL [facility] Bilirubin, total 0.7 0.1 - 1.2 mg/dL [facility] Protein, pl 10.4(H) 6.5 - 8.5 g/dL [facility] Albumin 4.9 3.5 - 5.0 g/dL [facility] Alk phos 128 40 - 130 Units/L [facility] ALT 23 7 - 55 Units/L [facility] AST 21 10 - 50 Units/L [facility] Blood 07/26/2023 3:10 PM FLORAL ASSISTANT 07/26/2023 3:28 PM FLORAL ASSISTANT Nigel Ramsey MD LAB BLOOD ORDERABLES Final Result Performing Organization Address [facility] de Phone Number [facility] Department [place] [address] * (ABNORMAL) CBC with auto differential (07/26/2023 3:10 PM FLORAL ASSISTANT) [facility] WBC 9.6 3.8 - 9.9 K/cumm [facility] Hgb 11.7(L) 13.0 - 17.5 g/dL [facility] Hct 35.1(L) 38.9 - 50.3 % [facility] Plt 444(H) 150 - 400 K/cumm [facility] MPV 9.2 9.1 - 12.3 fL [facility] RBC 4.13(L) 4.30 - 5.80 M/cumm [facility] MCV 85.0 81.3 - 96.4 fL [facility] MCH 28.3 27.1 - 33.3 pg [facility] MCHC 33.3 32.3 - 35.7 g/dL [facility] RDW CV 15.1(H) 11.1 - 14.9 % [facility] RDW SD 46.9 35.7 - 48.1 fL [facility] NRBC abs 0.00 0.00 - 0.01 K/cumm [facility] Blood (Blood, Venous) 07/26/2023 3:10 PM FLORAL ASSISTANT 07/26/2023 3:27 PM FLORAL ASSISTANT Nigel Ramsey MD LAB BLOOD ORDERABLES Final Result Performing Organization Address [facility]/ZIP Co de Phone Number [facility] Department [place] [address] * (ABNORMAL) ECG 12-LEAD (07/26/2023 3:02 PM FLORAL ASSISTANT) Narrative [facility] - 07/26/2023 3:02 PM FLORAL ASSISTANT Shannon Herzog MD ? 07/26/2023 ??3:05 PM [...] Interpretation: Interpretation: abnormal Shannon Herzog MD 07/26/23 5375 us Nigel Ramsey MD ECG ORDERABLES Final Result [facility] documented in this encounter Visit Diagnoses Diagnosis [...] For 1 dose Given 07/26/2023 9:08 PM FLORAL ASSISTANT 0.625 mg HYDROmorphone (DILAUDID) injection 0.5 mg 0.5 mg, intravenous, Administer over 2 Minutes, Every 2 hours PRN, 1st line for pain, Starting on Tue07/26/23 at 1601 Given 07/26/2023 7:58 PM FLORAL ASSISTANT 0.5 mg Given 07/26/2023 4:10 PM FLORAL ASSISTANT 0.5 mg HYDROmorphone (DILAUDID) injection 0.5 mg 0.5 mg, intravenous, Administer over 2 Minutes, Once, On Tue07/26/23 at 1632, For 1 dose Given 07/26/2023 5:12 PM FLORAL ASSISTANT 0.5 mg ioversoL (OPTIRAY 350) syringe 100 mL 100 mL, intravenous, Once in imaging, contrast, Starting on Tue07/26/23 at 1710, For 1 dose Contrast Given 07/26/2023 5:10 PM FLORAL ASSISTANT 95 mL Lactated Ringer's (LR) bolus 1,000 mL 1,000 mL, intravenous, Once, On Tue07/26/23 at 1632, For 1 dose New Bag 07/26/2023 5:12 PM FLORAL ASSISTANT 1,000 mL ondansetron (ZOFRAN) injection 4 mg 4 mg, intravenous, Administer over 2 Minutes, Once, On Tue07/26/23 at 1602, For 1 dose Given 07/26/2023 4:09 PM FLORAL ASSISTANT 4 mg documented in this encounter Active and Recently Administered Medications Times are shown in FLORAL ASSISTANT. Scheduled Medication Order 07/24/2023 07/25/2023 07/26/2023 capsaicin [...] Time COVID: Suspected 07/26/2023 07/26/202307/2607/26/2023 5:11 PM FLORAL ASSISTANT documented as of this encounter Care Teams Supervisor Smoke Control Relationship Specialty Start Date End Date Carl Strickland MD [address] [facility] [address] [place] [address] PCP - General Internal Medicine 06/06/23 Leo Manzano MD [address] [place] [address] Surgeon Vascular Surgery 05/16/23 documented as of this encounter
--- OUTSIDE RECORDS SUMMARY | 2024-05-30 06:28 | XMS_ITS | Encounter Summary ---
Author Organization [facility] Healthcare Address [address] [place] [address] Care Team Providers Care Draw Frame Operator Name Role Phone Leo Manzano MD Unavailable [phone] Carl Strickland MD Primary Care Provider Genevieve Hunt RN Unavailable [phone] Reason for Visit * Reason Comments Chart Review Encounter Details Date Type Department Care Team (Late st Contact Info) Description 09/12/2023 SHOP/CHAP Initial Eligibility Review [facility] OP CASE MANAGEMENT [address] [place] [address] Genevieve Hunt, RN [address] [facility] [address] [place], [place] [id number] Social History Tobacco Use Types Packs/Day Years Used Date Smoking Tobacco: Never Smokeless Tobacco: Never Alcohol Use Standard Drinks/Week Comments Not Currently 0 (1 standard drink = 0.6 oz pur e alcohol) [facility] Utilities Answer Date Recorded In [...] declined 09/12/2023 How often do you attend episcopal or restorationist serv ices? Patient declined 09/12/2023 Do you belong to any clubs o r organizations such as episcopal groups, unions, fraternal or athletic groups, or [...] in a fdc (including now)? Patient declined 09/12/2023 Personal Safety Answer Date Recorded Have you ever been in or are you currently in a harmful physical or emotional relationship or is someone making you feel afraid or unsafe? Denies 09/05/2023 Sex and Gender Information Value Date Recorded Sex Assigned at Not on file Legal Sex Male 3:42 AM AIDS NURSE Gender Identity Not on file Sexual Orientation Straight 06/12/2023 11 :43 PM AIDS NURSE documented as of this encounter Plan of Treatment Not on file documented as of this encounter Visit Diagnoses Not on filedocumented in this encounter Care Teams Draw Frame Operator Relationship Specialty Start Date End Date Carl Strickland MD [address] [facility] [address] [place] [address] PCP - General Internal Medicine 06/06/23 Leo Manzano MD [address] [place] [address] Surgeon Vascular Surgery 05/16/23 Genevieve Hunt RN [address] [facility] [address] [place] [address] SHOP Outpatient Belt Machine Operator 09/12/23 09/12/23 documented as of this encounter
--- OUTSIDE RECORDS SUMMARY | 2024-05-30 06:28 | XMS_ITS | Encounter Summary ---
Author Organization [facility] Address [address] [facility] [address] [place] [address] Phone Care Team Providers Care Panel Monitor Name Role Phone Leo Manzano MD Unavailable [phone] Carl Strickland MD Primary Care Provider Reason for Visit * Reason Comments Return Patient * Consultation (Routine) - Authorized Specialty Diagnoses / Procedures Referred By Fernando alan Referred To Contact Vascular Surgery Diagnoses Dissection of abdominal aorta (CMS/HCC) (HCC) Aftercare following surgery of the circulatory system Carl Strickland MD [address] [facility] [address] [place] [address] Phone: tel: fax: Leo Manzano MD [address] [facility] [address] [place] [address] Phone: tel: fax: Referral ID Status Reason Start Date Expiration Date Visits Requested Visits Authorized [id number] Authorized Specialty Services Required 06/07/2023 07/06/2024 12 12 Encounter Details Date Type Department Care Team (Latest Contact Info) Description 08/03/2023 2:45 PM STORAGE GARAGE ATTENDANT Office Visit [facility] Vascular Surgery [address] [place] [address] Medical Office Building [address] [place] [address] Leo Manzano MD [address] [place] [address] 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) Social History Tobacco Use Types Packs/Day Years Used Date Smoking Tobacco: Never Smokeless Tobacco: Never Tobacco Cessation:Counseling Given: Not Answered Alcohol Use Standard Drinks/Week Comments Not Currently 0 (1 standard drink = 0.6 oz pur e alcohol) [facility] Utilities Answer Date Recorded In the past 12 months has e [employer], gas, oil, or water company threatened to [...] any clubs o r organizations such as christianity groups, unions, fraternal or athletic groups, or [...] or slept in a usp (including now)? No 07/06/2023 Personal Safety Answer Date Recorded Have you ever been in or are you currently in a harmful physical or emotional relationship or is someone making you feel afraid or unsafe? Denies 07/26/2023 Sex and Gender Information Value Date Recorded Sex Assigned at Not on file Legal Sex Male 3:42 AM STORAGE GARAGE ATTENDANT Gender Identity Not on file Sexual Orientation Straight 06/12/2023 11 :43 PM STORAGE GARAGE ATTENDANT documented as of this encounter Last Filed Vital Signs Vital Sign Reading Time Taken Comments Blood Pressure 124/73 08/03/2023 2:15 PM STORAGE GARAGE ATTENDANT Pulse 69 08/03/2023 2:15 PM STORAGE GARAGE ATTENDANT Temperature 36.5 ??C (97.7 ??F) 08/03/2023 2:15 PM CS T Respiratory Rate - - Oxygen Saturation 99% 08/03/2023 2:15 PM STORAGE GARAGE ATTENDANT Inhaled Oxygen Concentration - - Weight 94.8 kg (209 lb) 08/03/2023 2:15 PM STORAGE GARAGE ATTENDANT Height 175.3 cm (5' 9 ) 08/03/2023 2:15 PM STORAGE GARAGE ATTENDANT Body Mass Index 30.86 08/03/2023 2:15 PM STORAGE GARAGE ATTENDANT documented in this encounter Ordered Prescriptions Prescription [...] to try to minimize narcotics moving forward. AGE GARAGE ATTENDANT documented in this encounter Plan of Treatment [...] 08/23/2023 added in this encounter Care Teams Panel Monitor Relationship Specialty Start Date End Date Carl Strickland MD [address] [facility] [address] [place] [address] PCP - General Internal Medicine 06/06/23 Leo Manzano MD [address] [facility] [address] [place] [address] Surgeon Vascular Surgery 05/16/23 documented as of this encounter
--- OUTSIDE RECORDS SUMMARY | 2024-05-30 06:28 | XMS_ITS | Encounter Summary ---
Author Organization [facility] Healthcare Address [address] [facility] [place] [address] Care Team Providers Care Artificial Glass Eye Maker Name Role Phone Leo Manzano MD Unavailable [phone] Carl Strickland MD Primary Care Provider Reason for Visit * Reason Comments Abdominal Pain Back Pain Black or Bloody Stool Vomiting * Auth/Cert (Routine) Specialty Diagnoses / Procedures Referred By Contac t Referred To Contact Diagnoses 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HCC) Procedures na Referral ID Status Reason Start Date Expiration Date Visits Re quested Visits Authorized [id number] 1 1 Encounter Details Date Type Department Care Team (Late st Contact Info) Description 09/05/2023 11:58 PM CDT - 09/09/2023 3:09 PM CDT Hospital Encounter [facility] [address] [place] [address] Dalton Jones MD [address] [place] [address] Ronald Dimas MD [address] [place] [address] Rosey Posada MD [address] [place] [address] Karine Louis MD [phone] [place] [address] 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 Gender Identity Not on file Sexual Orientation Straight 06/12/2023 11 :43 PM PATENT ENGINEER documented as of this encounter Last [...] Care Physician at Discharge: Carl Strickland MD [phone] Admission Date: 09/05/2023 Discharge Date: 09/09/2023 Admission Location: [facility] Problems/Diagnoses: Principal Problem: Dissection of descending thoracic [...] 9:30 AM Amanda Macias MD CAM PAIN [facility] CAM 10/07/2023 9:00 AM [facility] BJUS3 BJN US [facility] Main IMG 10/07/2023 10:00 AM Marcus Gamboa MD [facility] CAM 11C [place] 10/14/2023 10:20 AM Marcus Gamboa MD U[facility] CAM 11C [place] 11/23/2023 3:30 PM Joaquín Abarca MD CAR CAM 8B Cardiology 02/15/2024 12:00 PM [facility] WCHCT2 [facility] CT BJWCHMainIMG 02/15/2024 1:00 PM Leo Manzano MD [facility] BW3 [address] Cosigned by Karine Louis MD at 09/09/2023 4:21 PM CDT [...] Care Everywhere. * Chronic Pain (Discharge Care) (Bengali) documented in this encounter Medications at Time [...] of the [facility], btu at this time [...] (external institutions or providers from different services): [facility] previous emergency medicine and pain medicine team [...] (external institutions or providers from different services): [facility] previous emergency medicine and pain medicine team [...] Spiritual Assessment Spirituality Assessed Focus of Care Congregational Affiliation Taoism Clinical Encounter Type Visited With Patient Response Type Routine visit (consult request) Routine Visit Introduction Reason for visit Support Referral From Patient Outcomes and Progress Preserve dignity and respect Achieved Demonstrating care and respect Achieved Establish rapport and connectedness Achieved Interventions Interventions Active listening;Offer emotional support [facility] Spiritual Care Note Resident Pig Casting Machine Operatoremmie Dueñas Triage: [phone] * Huy Ramires, OT - 09/08/2023 9:47 [...] (external institutions or providers from different services): [facility] previous emergency medicine and pain medicine team [...] Spiritual Assessment Spirituality Assessed Focus of Care Congregational Affiliation Taoism Clinical Encounter Type Visited With Patient not available (sleeping) Response Type Routine visit (consult request) Routine Visit Introduction Reason for visit Support Referral From Patient [facility] Spiritual Care Note Resident Pig Casting Machine Operator Leo Dueñas Triage: [phone] * Leo Dueñas - 09/07/2023 9:43 AM CDT 09/07/23 0900 Time Spent Start Time 0915 Stop Time 0925 Time Calculation (min) 10 min Patient Spiritual Assessment Spirituality Assessed Unable to assess Congregational Affiliation Taoism Clinical Encounter Type Visited With Patient not available (sleeping) Response Type Routine visit (consult request) Routine Visit Introduction Reason for visit Support Referral From Patient [facility] Spiritual Care Note Resident Pig Casting Machine Operator Leo Dueñas Triage: [phone] documented in this encounter H&P Notes * [...] 17 CREATININE mg/dL 1.40* < > 1.16 [id number] mL/min/1.73 m2 69 < > 86 CALCIUM [...] Adult Diet Regular Diet effective now Question: ([facility]) Diet type Answer: Regular 09/06/231940 Allergies: Reviewed. IMPRESSION: Pt reports poor po intake, did not eat breakfast today. Reports no NV today but had nausea yesterday. C/o early satiety. Refuses Ensure Original/Plus. Agrees to Ensure Clear. Per chart review, pt has lost 14# x 3.5 months (6.4%)-no significant Last BM PROGRAMMER ANALYST CONSULTANT Labs noted PO intake not yet recorded [...] 20 minutes which was spent performing a aepk-ud-ebpz encounter and personally completing the provider-level activities [...] with the bedside patient care team. * Dayami Olivarez RN - 09/08/2023 7:22 PM CDT [...] Pt arrives aox4. Hx: AAA repair. - rEiberto is a 33 year old male with [...] 06/24/2023 ??? Pseudoaneurysm following procedure (CMS/HCC) ([facility] 06/24/2023 ??? Infrarenal abdominal aortic aneurysm, without rupture ([facility]) 06/13/2023 ??? Polysubstance abuse (CMS/HCC) ([facility]) 06/10/2023 ??? Moderate malnutrition (CMS/HCC) ([facility]) 06/09/2023 ??? Dissection of abdominal aorta (CMS/HCC) ([facility]) 06/03/2023 ??? Urinary retention 05/16/2023 ??? Epistaxis 05/13/2023 ??? Pneumonia 05/13/2023 ??? HTN (hypertension) 05/13/2023 ??? Dissection of thoracoabdominal aorta (CMS/HCC) ([facility]) 05/02/2023 ??? Dissection of aorta, unspecified portion of aorta ([facility]) 05/01/2023 Past Medical History: Diagnosis Date ??? [...] down-titrate. By: Marina Arias MD Time: 09/05 7106 Value: CTA Chest Abdomen Pelvis (Dissection Protocol [...] diagnosis found. Marina Arias MD Resident 09/06/23 9850 Cosigned by Dalton Jones MD at 09/06/2023 [...] of arrival: Comments: Marina Giang RN 09/05/23 1592 * Gus Poole RN - 09/05/2023 10:44 [...] discharge needs arise, please contact the covering community case manager. * Plan of Care - Layla Chaudhary MD - 09/09/2023 11:57 AM CDT Rheumatology Sign Off Recommendations Diagnosis: Back and abdominal pain PMD: Carl Strickland MD Rheumatology Attending: Dr. Simmons Current Healthcare Or Medical: No Summary of Consultation: Eriberto Chau is [...] gastrointestinal disease. Neurogastroenterol Motil. 2013 Jan;25(9):741-e576. doi: 10.1111/nmo.97746. Epub 2012October 17. PMID: 93852508. (2)Gilberto ED, Tate CV, Cristine BM, Alesah WD. Presentation and Characteristics of Abdominal Pain Vary by Irritable Bowel Syndrome Subtype: Results of a Nationwide Population-Based Study. Am J Gastroenterol. 2020 Jun;115(2):294-301. doi: 10.82895/ajg.[id number]. PMID: 48185332; PMCID: LKH4068194. (3) Cosigned by Karine Louis MD at [...] at this time Support following discharge: Meron BlankenshipCiwfu-Ihdfdl-[phone] Transportation: Family to provide transportation F/U Appointments: None at this time Patient's Identified Problem/Goal Problem: Ensure acute medical needs are met and that patient has a safe discharge plan. Goal: Secure a discharge plan that patient/family are agreeable with and ensure patient has continuum of care. Patient and/or family are agreeable with plan. market development manager will continue to follow and assist with discharge planning as needed. If any further discharge needs arise, please contact the covering community case manager. * Plan of Care - Rolando Bradley [...] Interview Note Information Obtained From: Patient (09/07/23 3780) Admission Source: Non Health Care Facility Point [...] A[employer] Managed Medicaid Prescription Coverage: Yes Pharmacy: [facility]/pharmacy #[id number] - [place] [id number] [facility] [address] [facility] [address] Primary Care Provider: Carl Strickland MD--Verified Prior to Admission: Functional Status: Independent with ADLs Primary Caregiver: Self Support System: Spouse/Significant Other, Parent (Meron BlankenshipWqevp-Eqdrcd-[phone] and Geri AlejandreHsjyeuc-Giyngiz-[phone]) Home Care Services: No Outpatient Services: No [...] Collaboration with patient, MD, direct care nurse, Cork Tipper, and other members of the health care team to assure needed interventions completed. 2. Return patient to optimal level of self-care post discharge. 3. Education Program Coordinator will follow for Discharge Planning - interventions [...] were diagnosed. He has traveled to [place] ([facility]) three times in his life, but [...] Intake/Output Summary (Last 24 hours) at 09/07/2023 0772 Last data filed at 09/06/2023 1619 Gross [...] 8wks Aurelia Contreras B.A. Phase 3 (1) https://www.ncbi.nlm.nih.gov/books/COQ136141/#:~:text=Immunoglobulin%2DA%20Vascu litis&text=A cute%20onset%2C%20colicky%20abdominal%20pain,can%20occur%20in%20these%20patients . Cosigned by Jonny Farris [...] Primary Care Physician: Carl Strickland MD Room: [facility] ED4-03/ED4-03 Attending Physician: Dr. Ro Louis SUBJECTIVE [...] abd/back/chest pain and vomiting. Pt arrived to [place] ED w 03/08 abd pain since yesterday [...] for imaging changes. Recs meloxicam 50mg and [id number]. Pt reports that he is taking. Denied [...] Contact Information Primary Emergency Contact: MERON BLANKENSHIP [facility] Mobile Relation: Mother Preferred language: Bengali Pump Assembler needed? No Secondary Emergency Contact: Geri Alejandre [employer] [facility] Natasha Mobile Relation: Partner Pump Assembler needed? No Aurelia Contreras (1)Tio MCGARRY, Jericho RM, Mark Anthony L, Christi D, Brenton CL, Pham SE, Nola M. A Comparison ofUrolithiasis in the Presence and Absence of Microscopic Hematuria in the Emergency Department. WestJ Emerg Med. 2017 Dilan;18(4):778-773. doi: 10.5811/westjem.2017.4.19000. Epub 2016October 11. PMID: 72424351; PMCID: [id number]. Cosigned by Karine Louis MD at 09/08/2023 [...] METABOLIC PANEL Routine 09/06/2023 11:15 AM CDT MD CRITICAL CARE ILL/INJURED PATIENT INIT 30-74 MIN [...] Dimas MD LAB BLOOD ORDERABLES Final Result [facility] [place] [address] * (ABNORMAL) CBC without differential (09/08/2023 11:30 PM CDT) WBC 7.0 3.8 - 9.9 K/cumm Hgb 12.2(L) 13.0 - 17.5 g/dL [facility] Hct 37.7(L) 38.9 - 50.3 % [facility] Plt 283 150 - 400 K/cumm [facility] MPV 9.3 9.1 - 12.3 fL [facility] RBC 4.30 4.30 - 5.80 M/cumm [facility] MCV 87.7 81.3 - 96.4 fL [facility] MCH 28.4 27.1 - 33.3 pg [facility] MCHC 32.4 32.3 - 35.7 g/dL [facility] RDW CV 15.6(H) 11.1 - 14.9 % [facility] RDW SD 49.6(H) 35.7 - 48.1 fL [facility] NRBC abs 0.00 0.00 - 0.01 K/cumm [facility] Blood 09/08/2023 11:3 0 PM CDT 09/08/2023 11:58 PM CDT Ronlad Dimas MD LAB BLOOD ORDERABLES Final Result Performing Organization Address City/[facility]/ZIP Co de Phone Number [facility] [place] [address] * (ABNORMAL) Basic metabolic panel (09/08/2023 11:30 PM CDT) Sodium 137 135 - 145 mmol/L Potassium, pl 3.6 3.3 - 4.9 mmol/L [facility] Chloride 101 97 - 110 mmol/L [facility] CO2 25 22 - 32 mmol/L [facility] Anion gap 11 2 - 15 mmol/L [facility] BUN 26(H) 6 - 25 mg/dL [facility] Creatinine 1.22 0.80 - 1.30 mg/dL [facility] Glucose 114 70 - 199 mg/dL [facility] Comment: Interpretive Data Fasting glucose >/= [...] 2022. Calcium 9.3 8.5 - 10.3 mg/dL [facility] Blood 09/08/2023 11:3 0 PM CDT 09/08/2023 11:57 PM CDT us Ronald Dimas MD LAB BLOOD ORDERABLES Final Result [facility] [place] [address] * MRI Sacrum Coccyx WO Contrast (09/08/2023 [...] Immunofixation, urine (09/08/2023 3:00 PM CDT) Pathologist [facility] Immunofixation, Ur Please see comment Comment: NO PARAPROTEIN DETECTED Reviewed and signed by Ag Page MD, PhD 09/12/2023 Urine 09/08/2023 3:00 PM CDT 09/08/2023 3:54 PM CDT Ronald Dimas MD LAB URINE ORDERABLES Final Result [facility] [place] [address] * Volume and period, urine, 24 hour (09/08/2023 3:00 PM CDT) Pathologist [facility] Volume, ur 850 mL Period, Urine Collection 1,440 min [facility] Urine 09/08/2023 3:00 PM CDT 09/08/2023 3:54 PM CDT Ronald Dimas MD LAB URINE ORDERABLES Final Result Performing Organization Address [facility] Co de Phone Number [facility] [place] [address] * (ABNORMAL) Protein electrophoresis, urine, 24 hour (09/08/2023 3:00 PM CDT) [facility] Protein, ur, quant 20.5 mg/dL Comment:No reference range e stablished. Albumin, Ur 100.0 % [facility] Comment:No reference range e stablished. Alpha-1 globulin, Ur No Protein Visible % [facility] Comment:No reference range e stablished. Alpha-2 globulin, Ur No Protein Visible % [facility] Comment:No reference range e stablished. Beta globulin, Ur No Protein Visible % [facility] Comment:No reference range e stablished. Gamma globulin, Ur No Protein Visible % [facility] Comment:No reference range e stablished. UPEP interp Please see comment [facility] Comment: No apparent monoclonal peak See immunofixation for further information Urine concentrated Reviewed and signed by Ag Page MD, PhD 09/12/2023 Protein, 24 hr, ur 174(H) 1 - 150 mg/24H [facility] Urine 09/08/2023 3:00 PM CDT 09/08/2023 3:54 PM CDT Ronald Dimas MD LAB URINE ORDERABLES Final Result Performing Organization Address [facility]/ZIP Co de Phone Number [facility] [place] [address] * eGFR (09/07/2023 10:43 PM CDT) [facility] eGFR >90 >=60 mL/min/1. 73 m2 Comment: [...] Final Result Performing Organization Address City/State/ZIP Co in Phone Number [facility] [place] [address] * Cryptococcal Antigen, Serum Blood (09/07/2023 10:43 PM CDT) [facility] Cryptococcus ag, Serum Negative Negative Comment: The cryptococcal antigen test was performed using the KiwupY CrAg Lateral Flow Assay. This assay is [...] GENERAL ORDERABLES Final Result Performing Organization Address [facility] de Phone Number [facility] [place] [address] * Blastomyces antibody, EIA, serum Blood (09/07/2023 10:43 PM CDT) Blastomyces Antibody Negative Negative [facility] Comment: A single negative result does not exclude the diagnosis of blastomycosis. ??Repeat testing on a new sample in 7-14 days if clinically indicated. Test Performed by: [place] [id number] [place] [address] Freedom Of Information Officer: Chris Perez M.D. Ph.D.; CLIA# [id number] Blood 09/07/2023 10:4 3 PM CDT 09/07/2023 11:33 PM CDT Ronald Dimas MD LAB MICROBIOLOGY - GENERAL ORDERABLES Final Result Performing Organization Address [facility] de Phone Number [facility] [place] [address] [facility] * Anti-Neutrophilic Cytoplasmic Antibody (ANCA) with Reflex to MPO and PR3 Abs (09/07/2023 10:43 PM CDT) ANCA Negative Blood 09/07/2023 10:4 3 PM CDT 09/07/2023 10:57 PM CDT Ronald Dimas MD LAB BLOOD ORDERABLES Final Result Performing Organization Address [facility] de Phone Number [facility] [place] [address] * (ABNORMAL) CBC without differential (09/07/2023 10:43 PM CDT) [facility] WBC 9.2 3.8 - 9.9 K/cumm Hgb 12.8(L) 13.0 - 17.5 g/dL [facility] Hct 37.7(L) 38.9 - 50.3 % [facility] Plt 277 150 - 400 K/cumm [facility] MPV 8.7(L) 9.1 - 12.3 fL [facility] RBC 4.42 4.30 - 5.80 M/cumm [facility] MCV 85.3 81.3 - 96.4 fL [facility] MCH 29.0 27.1 - 33.3 pg [facility] MCHC 34.0 32.3 - 35.7 g/dL [facility] RDW CV 15.2(H) 11.1 - 14.9 % [facility] RDW SD 47.7 35.7 - 48.1 fL [facility] NRBC abs 0.00 0.00 - 0.01 K/cumm [facility] Blood 09/07/2023 10:4 3 PM CDT 09/07/2023 10:57 PM CDT Ronald Dimas MD LAB BLOOD ORDERABLES Final Result Performing Organization Address [facility] Co de Phone Number [facility] [place] [address] * Basic metabolic panel (09/07/2023 10:43 PM CDT) [facility] Sodium 136 135 - 145 mmol/L Potassium, pl 3.7 3.3 - 4.9 mmol/L [facility] Chloride 104 97 - 110 mmol/L [facility] CO2 22 22 - 32 mmol/L [facility] Anion gap 10 2 - 15 mmol/L [facility] BUN 23 6 - 25 mg/dL [facility] Creatinine 1.01 0.80 - 1.30 mg/dL [facility] Glucose 99 70 - 199 mg/dL [facility] Comment: Interpretive Data Fasting glucose >/= [...] 2022. Calcium 9.5 8.5 - 10.3 mg/dL [facility] Blood 09/07/2023 10:4 3 PM CDT 09/07/2023 10:56 PM CDT us Ronald Dimas MD LAB BLOOD ORDERABLES Final Result [facility] [place] [address] * XR Sacroiliac Joints 3 or More [...] * RPR Blood (09/07/2023 3:14 PM CDT) [facility] RPR Nonreactive Nonreactive Blood 09/07/2023 3:14 PM CDT 09/07/2023 3:45 PM CDT Ronald Dimas MD LAB MICROBIOLOGY - GENERAL ORDERABLES Final Result [facility] [place] [address] * Protein electrophoresis with reflex, serum (09/07/2023 3:14 PM CDT) [facility] Protein, sr 8.2 6.2 - 8.2 g/dL Albumin 4.5 3.2 - 5.0 g/dL [facility] Alpha-1 globulin 0.3 0.2 - 0.4 g/dL [facility] Alpha-2 globulin 0.8 0.5 - 1.0 g/dL [facility] Beta-1 globulin 0.4 0.3 - 0.6 g/dL [facility] Beta-2 globulin 0.6 0.2 - 0.6 g/dL [facility] Gamma globulin 1.6 0.5 - 1.7 g/dL [facility] SPEP interp Please see comment [facility] Comment: No apparent monoclonal peak Reviewed and signed by Raj Jane MD 09/08/2023 Blood 09/07/2023 3:14 PM CDT 09/07/2023 3:45 PM CDT Ronald Dimas MD LAB BLOOD ORDERABLES Final Result [facility] [place] [address] * T-SPOT[employer]TB Blood (09/07/2023 12:49 PM CDT) [facility] T-SPOT.TB Negative SeeBelow Comment: Normal Value: Negative [...] test. T-SPOT.TB Panel A Spot Count 0 [facility] T-SPOT.TB Panel B Spot Count 0 [facility] T-SPOT.TB Negative Control Passed [facility] T-SPOT.TB Positive Control Passed [facility] Comment: Test Performed at: [email or web address] [facility], [employer] [address] [place] [address] ??[phone] ? JUANITO MANUEL,PHD Blood 09/07/2023 12:4 9 PM CDT 09/07/2023 2:05 PM CDT Ronald Dimas MD LAB MICROBIOLOGY - GENERAL ORDERABLES Final Result Performing Organization Address City/[facility]/ZIP Co de Phone Number [facility] [place] [address] * CRP (acute phase) (09/07/2023 12:49 PM CDT) [facility] CRP 7.2 <=10.0 mg/L Blood 09/07/2023 12:4 9 PM CDT 09/07/2023 1:04 PM CDT Ronald Dimas MD LAB BLOOD ORDERABLES Final Result Performing Organization Address [facility] [place] [address] * (ABNORMAL) Erythrocyte sedimentation rate (09/07/2023 12:49 PM CDT) [facility] Erythrocyte sedimentation rate 43(H) 1 - 15 mm/hr Blood 09/07/2023 12:4 9 PM CDT 09/07/2023 1:04 PM CDT Ronald Dimas MD LAB BLOOD ORDERABLES Final Result Performing Organization Address [facility] [place] [address] * eGFR (09/06/2023 10:59 PM CDT) [facility] eGFR 69 >=60 mL/min/1. 73 m2 Comment: [...] Dimas MD LAB BLOOD ORDERABLES Final Result [facility] [place] [address] * (ABNORMAL) CBC without differential (09/06/2023 10:59 PM CDT) WBC 9.5 3.8 - 9.9 K/cumm Hgb 13.3 13.0 - 17.5 g/dL [facility] Hct 40.5 38.9 - 50.3 % [facility] Plt 303 150 - 400 K/cumm [facility] MPV 8.9(L) 9.1 - 12.3 fL [facility] RBC 4.64 4.30 - 5.80 M/cumm [facility] MCV 87.3 81.3 - 96.4 fL [facility] MCH 28.7 27.1 - 33.3 pg [facility] MCHC 32.8 32.3 - 35.7 g/dL [facility] RDW CV 15.8(H) 11.1 - 14.9 % [facility] RDW SD 50.0(H) 35.7 - 48.1 fL [facility] NRBC abs 0.00 0.00 - 0.01 K/cumm [facility] Blood 09/06/2023 10:5 9 PM CDT 09/06/2023 11:13 PM CDT Ronald Dimas MD LAB BLOOD ORDERABLES Final Result [facility] [place] [address] * (ABNORMAL) Basic metabolic panel (09/06/2023 10:59 PM CDT) [facility] Sodium 136 135 - 145 mmol/L Potassium, pl 3.7 3.3 - 4.9 mmol/L [facility] Chloride 101 97 - 110 mmol/L [facility] CO2 24 22 - 32 mmol/L [facility] Anion gap 11 2 - 15 mmol/L [facility] BUN 27(H) 6 - 25 mg/dL [facility] Creatinine 1.40(H) 0.80 - 1.30 mg/dL [facility] Glucose 101 70 - 199 mg/dL [facility] Comment: Interpretive Data Fasting glucose >/= [...] Calcium 9.9 8.5 - 10.3 mg/dL [facility] Blood 09/06/2023 10:5 9 PM CDT 09/06/2023 11:12 PM CDT Ronald Dimas MD LAB BLOOD ORDERABLES Final Result Performing Organization Address City/[facility]/ZIP Co de Phone Number [facility] [place] [address] * eGFR (09/06/2023 11:15 AM CDT) eGFR [...] LAB BLOOD ORDERABLES Final Resu lt [facility] [place] [address] * Thyroid Function [place] (09/06/2023 11:15 AM CDT) TSH 0.64 0.30 - 4.20 mcIUnit/mL Blood 09/06/2023 11:1 5 AM CDT 09/06/2023 11:34 AM CDT us Clyde Nelson MD LAB BLOOD ORDERABLES Final Resu lt Performing Organization Address City/State/[facility] Co de Phone Number [facility] [place] [address] * Blood culture Blood (09/06/2023 11:15 AM CDT) Report Final Report: No growth Blood 09/06/2023 11:1 5 AM CDT 09/06/2023 11:29 AM CDT Narrative [facility] - 09/10/2023 12:00 PM CDT Collection->Peripheral 1. [...] organism identification may be performed using the Aspyraigene Gram-Positive Blood Culture Assay. This assay detects microbial DNA in positive blood culture broth via hybridization of target DNA to capture oligonucleotides on a microarray. This assay has been cleared by the [place] Food and Drug Administration and its performance characteristics have been verified by the [facility] Microbiology Laboratory. 5. ?For questions about this culture, contact the Microbiology Laboratory at [phone]. Interpretive data was last revised on 2019. us Clyde Nelson MD LAB MICROBIOLOGY - GENERAL ORDE JESSICA Final Result Performing Organization Address City/[facility] Co de Phone Number [facility] [place] [address] * Blood culture Blood (09/06/2023 11:15 AM [...] organism identification may be performed using the Aspyraigene Gram-Positive Blood Culture Assay. This assay detects microbial DNA in positive blood culture broth via hybridization of target DNA to capture oligonucleotides on a microarray. This assay has been cleared by the [place] Food and Drug Administration and its performance characteristics have been verified by the [facility] Microbiology Laboratory. 5. ?For questions about this culture, contact the Microbiology Laboratory at [phone]. Interpretive data was last revised on 2019. us Clyde Nelson MD LAB MICROBIOLOGY - GENERAL ORDE JESSICA Final Result Performing Organization Address City/[facility] Co de Phone Number [facility] Department [place] [address] * Hepatitis B Surface Antigen Blood (09/06/2023 11:15 AM CDT) Pathologist [facility] HepBsAg Nonreactive Nonreactive Blood 09/06/2023 11:1 5 AM CDT 09/06/2023 11:34 AM CDT us Clyde Nelson MD LAB MICROBIOLOGY - GENERAL SHAUNA LOPEZ Final Result Performing Organization Address City/[facility] Co de Phone Number [facility] [place] [address] * Hepatitis C antibody Blood (09/06/2023 11:15 AM CDT) [facility] Hep C Ab Nonreactive Nonreactive Comment:Antibodies to HCV no t detected. Does NOT exclude the possibility of recent exposure to HCV. Current interpretive data was last revised on 22 Blood 09/06/2023 11:1 5 AM CDT 09/06/2023 11:34 AM CDT Clyde Nelson MD LAB MICROBIOLOGY - GENERAL SHAUNA LOPEZ Edited Result - Final Performing Organization Address [facility] Co de Phone Number [facility] [place] [address] * PTH (09/06/2023 11:15 AM CDT) [facility] PTH 33 15 - 65 pg/mL Blood 09/06/2023 11:1 5 AM CDT 09/06/2023 11:34 AM CDT Clyde Nelson MD LAB BLOOD ORDERABLES Final Resu lt Performing Organization Address [facility] Co de Phone Number [facility] [place] [address] * (ABNORMAL) Vitamin D 25 hydroxy (09/06/2023 11:15 AM CDT) [facility] Vitamin D 25-OH 9(L) 30 - 80 ng/mL Blood 09/06/2023 11:1 5 AM CDT 09/06/2023 11:34 AM CDT Clyde Nelson MD LAB BLOOD ORDERABLES Final Resu lt Performing Organization Address City/[facility]/ZIP Co de Phone Number [facility] [place] [address] * Calcium, ionized (09/06/2023 11:15 AM CDT) [facility] Calcium, Ionized 4.88 4.50 - 5.10 mg/dL Blood 09/06/2023 11:1 5 AM CDT 09/06/2023 11:34 AM CDT Clyde Nelson MD LAB BLOOD ORDERABLES Final Resu lt Performing Organization Address [facility] Co de Phone Number [facility] [place] [address] * Basic metabolic panel (09/06/2023 11:15 AM CDT) [facility] Sodium 136 135 - 145 mmol/L Potassium, pl 3.9 3.3 - 4.9 mmol/L [facility] Chloride 100 97 - 110 mmol/L [facility] CO2 24 22 - 32 mmol/L [facility] Anion gap 12 2 - 15 mmol/L [facility] BUN 22 6 - 25 mg/dL [facility] Creatinine 1.25 0.80 - 1.30 mg/dL [facility] Glucose 98 70 - 199 mg/dL [facility] Comment: Interpretive Data Fasting glucose >/= [...] Calcium 9.8 8.5 - 10.3 mg/dL [facility] Blood 09/06/2023 11:1 5 AM CDT 09/06/2023 11:34 AM CDT us Clyde Nelson MD LAB BLOOD ORDERABLES Final Resu lt [facility] [place] [address] * MD CRITICAL CARE ILL/INJURED PATIENT INIT 30-74 MIN [...] ur 0-2 0 - 2 /HPF [facility] Epithelial cells, squamous, ur 1-5 0 - 5 /HPF [facility] Bacteria, ur Trace(A) [facility] Mucous, ur Present(A) [facility] Hyaline casts, ur 21-50(A) 0 - 10 /LPF [facility] Culture Reflex Comment Reflex conditions for urine culture (WBC >10) not met. [facility] Urine 09/06/2023 5:43 AM CDT 09/06/2023 5:50 AM CDT Dalton Jones MD LAB URINE ORDERA BLES Final Result [facility] [place] [address] * (ABNORMAL) Urinalysis reflex to microscopic and culture Urine (09/06/2023 5:43 AM CDT) Color, ur Yellow Yellow Clarity, ur Clear Clear [facility] Specific gravity, ur >1.042(H) 1.003 - 1.030 [facility] pH, urine 6.5 [facility] Comment: Interpretive Data ? Urine pH is affected by diet, medications, systemic acid-base disturbances, and renal tubular function. ??pH may affect urinary stone formation. ??For example, urine pH below 6.0 may help reduce the tendency for calcium phosphate stones and pH greater than 6.0 may reduce the tendency for uric acid stone formation. Source: [employer] Current Interpretive Data was last revised on 2017 Protein, ur ql 1+(A) Negative [facility] Glucose, ur ql Negative Negative [facility] Ketones, ur 1+(A) Negative [facility] Bilirubin, ur Negative Negative [facility] Blood, ur Negative Negative [facility] Urobilinogen, ur <2.0 <2.0 mg/dL [facility] Nitrite, ur Negative Negative [facility] Leukocyte esterase, ur Negative Negative [facility] UA reflex comment Reflex to microscopic UA will be performed. [facility] Urine 09/06/2023 5:43 AM CDT 09/06/2023 5:50 AM CDT us Dalton Jones MD LAB MICROBIOLOGY - GENERAL ORDERABLES Final Result [facility] [place] [address] * Sepsis Lactate w/ Reflex (09/06/2023 3:07 AM CDT) Sepsis Lactate 1.0 0.7 - 2.0 mmol/L Blood 09/06/2023 3:07 AM CDT 09/06/2023 3:18 AM CDT us Marina Arias MD LAB BLOOD ORDERABLES F inal Result Performing Organization Address City/[facility] Co de Phone Number [facility] [place] [address] * Troponin I high-sensitivity 2-hour (09/06/2023 2:08 AM CDT) Trop I hs <4 <=35 ng/L Comment: Interpretive Data For further hscTnI resources including the diagnostic algorithm and an aid in interpretation, copy and paste this link: https://bjhlab.testcatalog.org/show/hsTrop-1 Current Interpretive Data last revised 2019. Trop I hs delta 0 ng/L [facility] Trop I hs interp Insignificant [facility] Blood 09/06/2023 2:08 AM CDT 09/06/2023 2:59 AM CDT us Dalton Jones MD LAB BLOOD ORDERA BLES Final Result [facility] [place] [address] * CTA Chest Abdomen Pelvis (Dissection Protocol [...] the 3-D workstation and sent to the [employer] archival system. ?? COMPARISON: Comparison is made [...] panel Nasopharyngeal (09/06/2023 12:12 AM CDT) Pathologist [facility] Influenza A RNA Not Detected Not Detected Influenza B RNA Not Detected Not Detected [facility] RSV RNA Not Detected Not Detected [facility] COVID-19 RNA Not Detected Not Detected [facility] Coronavirus 229E RNA Not Detected Not Detected [facility] Coronavirus HKU1 RNA Not Detected Not Detected [facility] Coronavirus NL63 RNA Not Detected Not Detected [facility] Coronavirus OC43 RNA Not Detected Not Detected [facility] Adenovirus DNA Not Detected Not Detected [facility] Metapneumovirus RNA Not Detected Not Detected [facility] Rhinovirus/Enterov irus RNA Not Detected Not Detected [facility] Parainfluenza 1 RNA Not Detected Not Detected [facility] Parainfluenza 2 RNA Not Detected Not Detected [facility] Parainfluenza 3 RNA Not Detected Not Detected [facility] Parainfluenza 4 RNA Not Detected Not Detected [facility] B. pertussis DNA Not Detected Not Detected [facility] B. parapertussis DNA Not Detected Not Detected [facility] C. pneumoniae DNA Not Detected Not Detected [facility] M. pneumoniae DNA Not Detected Not Detected [facility] Nasopharyngeal 09/06/2023 12 :12 AM CDT 09/06/2023 12:21 AM CDT Narrative [facility] - 09/06/2023 1:12 AM CDT Is the Patient experiencing symptoms consistent with COVID?->Yes Surveillance testing for transplant patient?->No ??Interpretive Data The Hubs1 FilmArray Respiratory Panel (RP2.1) assay is a [...] assay has FDA clearance for testing of EDUCATIONAL MANAGER swabs. ??The performance of additional specimen types has been assessed by the performing laboratory. ??The performance characteristics of this assay have been determined by [facility] Molecular Infectious Disease Laboratory. Current interpretive data was last revised on 22. us Dalton Jones MD LAB MICROBIOLOGY - GENERAL ORDERABLES Final Result [facility] [place] [address] * eGFR (09/06/2023 12:08 AM CDT) eGFR [...] ORDERABLES Final R esult Performing Organization Address City/[facility]/ZIP Co de Phone Number [facility] [place] [address] * Lipase (09/06/2023 12:08 AM CDT) Pathologist [facility] Lipase 10 10 - 99 Units/L Blood 09/06/2023 12:0 8 AM CDT 09/06/2023 12:47 AM CDT Dalton Jones MD LAB BLOOD ORDERA BLES Final Result Performing Organization Address City/[facility] Co de Phone Number [facility] [place] [address] * (ABNORMAL) Differential, auto (09/06/2023 12:08 AM CDT) Neutrophil abs 10.2(H) 1.5 - 6.5 K/cumm Imm gran abs 0.1 0.0 - 0.1 K/cumm [facility] Lymphocyte abs 1.2 0.8 - 3.3 K/cumm [facility] Monocyte abs 0.7 0.2 - 0.8 K/cumm [facility] Eosinophil abs 0.0 0.0 - 0.5 K/cumm [facility] Basophil abs 0.1 0.0 - 0.1 K/cumm [facility] Neutrophil pct 83.1 % [facility] Comment: Interpretive Data Percent cell count reference ranges are not reported, since discordance with absolute values may lead to misinterpretation of CBC data. Current Interpretive Data was last revised on 2017. Imm gran pct 0.7 % [facility] Comment: Interpretive Data Percent cell count reference ranges are not reported, since discordance with absolute values may lead to misinterpretation of CBC data. Current Interpretive Data was last revised on 2017. Lymphocyte pct 9.8 % [facility] Comment: Interpretive Data Percent cell count reference ranges are not reported, since discordance with absolute values may lead to misinterpretation of CBC data. Current Interpretive Data was last revised on 2017. Monocyte pct 5.8 % [facility] Comment: Interpretive Data Percent cell count reference ranges are not reported, since discordance with absolute values may lead to misinterpretation of CBC data. Current Interpretive Data was last revised on 2017. Eosinophil pct 0.2 % [facility] Comment: Interpretive Data Percent cell count reference ranges are not reported, since discordance with absolute values may lead to misinterpretation of CBC data. Current Interpretive Data was last revised on 2017. Basophil pct 0.4 % [facility] Comment: Interpretive Data Percent cell count reference ranges are not reported, since discordance with absolute values may lead to misinterpretation of CBC data. Current Interpretive Data was last revised on 2017. Blood 09/06/2023 12:0 8 AM CDT 09/06/2023 12:39 AM CDT Huy Mack MD LAB BLOOD ORDERABLES Final R esult [facility] [place] [address] * aPTT (09/06/2023 12:08 AM CDT) aPTT [...] ORDERA BLES Final Result Performing Organization Address City/[facility]/ZIP Co de Phone Number [facility] [place] [address] * Protime-INR (09/06/2023 12:08 AM CDT) PT 12.3 10.3 - 13.7 sec INR 1.08 0.90 - 1.20 [facility] Comment: Interpretive data Oral anticoagulant therapeutic [...] ORDERA BLES Final Result Performing Organization Address [facility] Co de Phone Number [facility] [place] [address] * Type and screen (09/06/2023 12:08 AM CDT) Ellen, indirect Negative ABO Rh A Positive [facility] Blood 09/06/2023 12:0 8 AM CDT 09/06/2023 12:43 AM CDT Narrative [facility] - 09/06/2023 1:32 AM CDT Has the patient had Daratumumab or Isatuximab in the past 6 months?->Unknown Dalton Jones MD LAB BLOOD BANK T EST ORDERABLES Final Result Performing Organization Address City/[facility]/ZIP Co de Phone Number [facility] [place] [address] * Troponin I high-sensitivity series (baseline, 2hr, 4hr, 6hr) (09/06/2023 12:08 AM CDT) Pathologist [facility] Trop I hs <4 <=35 ng/L Comment: Interpretive Data For further [facility] resources including the diagnostic algorithm and an aid in interpretation, copy and paste this link: https://bjhlab.testcatalog.org/show/[email or web address] Current Interpretive Data last revised 2019. Blood 09/06/2023 12:0 8 AM CDT 09/06/2023 12:39 AM CDT Dalton Jones MD LAB BLOOD ORDERA BLES Final Result [facility] [place] [address] * (ABNORMAL) Comprehensive metabolic panel (09/06/2023 12:08 AM CDT) [facility] Sodium 135 135 - 145 mmol/L Potassium, pl 4.5 3.3 - 4.9 mmol/L [facility] Chloride 98 97 - 110 mmol/L [facility] CO2 20(L) 22 - 32 mmol/L [facility] Anion gap 17(H) 2 - 15 mmol/L [facility] BUN 17 6 - 25 mg/dL [facility] Creatinine 1.16 0.80 - 1.30 mg/dL [facility] Glucose 144 70 - 199 mg/dL [facility] Comment: Interpretive Data Fasting glucose >/= [...] 2022. Calcium 11.0(H) 8.5 - 10.3 mg/dL [facility] Bilirubin, total 0.6 0.1 - 1.2 mg/dL [facility] Protein, pl 10.1(H) 6.5 - 8.5 g/dL [facility] Albumin 4.8 3.5 - 5.0 g/dL [facility] Alk phos 131(H) 40 - 130 Units/L [facility] ALT 19 7 - 55 Units/L [facility] AST 23 10 - 50 Units/L [facility] Blood (Blood, Venous) 09/06/2023 12:08 AM CDT 09/06/2023 12:47 AM CDT us Dalton Jones MD LAB BLOOD ORDERA BLES Final Result [facility] [place] [address] * (ABNORMAL) CBC with auto differential (09/06/2023 12:08 AM CDT) WBC 12.3(H) 3.8 - 9.9 K/cumm Hgb 15.0 13.0 - 17.5 g/dL [facility] Hct 45.7 38.9 - 50.3 % [facility] Plt 337 150 - 400 K/cumm [facility] MPV 8.9(L) 9.1 - 12.3 fL [facility] RBC 5.29 4.30 - 5.80 M/cumm [facility] MCV 86.4 81.3 - 96.4 fL [facility] MCH 28.4 27.1 - 33.3 pg [facility] MCHC 32.8 32.3 - 35.7 g/dL [facility] RDW CV 15.2(H) 11.1 - 14.9 % [facility] RDW SD 48.9(H) 35.7 - 48.1 fL [facility] NRBC abs 0.00 0.00 - 0.01 K/cumm [facility] Blood (Blood, Venous) 09/06/2023 12:08 AM CDT 09/06/2023 12:39 AM CDT us Dalton Jones MD LAB BLOOD ORDERA BLES Final Result [facility] [place] [address] documented in this encounter Visit Diagnoses Diagnosis [...] Olivarez RN)[id number] (Medication Removed - Provider: Rolando Bradley RN) 0839 (Medication Applied - Provider: Dayami [...] documented as of this encounter Care Teams Artificial Glass Eye Maker Relationship Specialty Start Date End Date Carl Strickland MD [address] [facility] [address] [place] [address] PCP - General Internal Medicine 06/06/23 Leo Manzano MD [address] [facility] [address] [place] [address] Surgeon Vascular Surgery 05/16/23 documented as of this encounter
--- OUTSIDE RECORDS SUMMARY | 2024-05-30 06:28 | XMS_ITS | Encounter Summary ---
Author Organization [facility] Address [address] [place] [address] Phone Care Team Providers Care Concreter Name Role Phone Leo Manzano MD Unavailable [phone] Carl Strickland MD Primary Care Provider Encounter Details Date Type Department Care Team (Late st Contact Info) Description 07/19/2023 Orders Only [facility] Urology [address] [facility] [address] [place] [address] Marcus Gamboa MD [address] [place] [address] Ureteral stone (Primary Dx) Social History Tobacco Use Types Packs/Day Years Used Date Smoking Tobacco: Never Smokeless Tobacco: Never Alcohol Use Standard Drinks/Week Comments Not Currently 0 (1 standard drink = 0.6 oz pur e alcohol) [facility] Utilities Answer Date Recorded In the [...] on file Legal Sex Male 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 Gender Identity Not on file Sexual Orientation Straight 06/12/2023 11 :43 PM 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 documented as of this encounter Plan of Treatment Scheduled Orders Name Type Priority Associated Diagnoses Orde r Schedule [facility] 24Hr Urine Panel Lab Routine Ureteral stone Expected: 07/19/2023, Expires: 07/19/2024 [employer] 24Hr Urine Panel Lab Routine Ureteral stone Expected: 07/19/2023, Expires: 07/19/2024 documented as of this encounter Visit Diagnoses Diagnosis Ureteral stone- Primary Calculus of ureter documented in this encounter Care Teams Concreter Relationship Specialty Start Date End Date Carl Strickland MD [address] [facility] [address] [place] [address] PCP - General Internal Medicine 06/06/23 Leo Manzano MD [address] [facility] [address] [place] [address] Surgeon Vascular Surgery 05/16/23 documented as of this encounter
--- OUTSIDE RECORDS SUMMARY | 2024-05-30 06:28 | XMS_ITS | Encounter Summary ---
Author Organization [facility] Address [address] [place] [address] Phone Care Team Providers Care Radiology Receptionist Name Role Phone Leo Manzano MD Unavailable [phone] Carl Strickland MD Primary Care Provider Encounter Details Date Type Department Care Team (Latest Contact Info) Description 07/20/2023 3:15 PM MANAGER ATHLETICS Office Visit [facility] Cardiology [address] [facility] Advanced Medicine 8th [place] [address] [place] [id number] Joaquín Abarca MD [address] [place] [address] Dissection of thoracoabdominal aorta (CMS/HCC) [...] file Legal Sex Male 3:42 AM MANAGER ATHLETICS Gender Identity Not on file Sexual Orientation Straight 06/12/2023 11 :43 PM MANAGER ATHLETICS documented as of this encounter Last Filed Vital Signs Vital Sign Reading Time Taken Comments Blood Pressure 114/70 07/20/2023 3:26 PM MANAGER ATHLETICS Pulse 73 07/20/2023 3:26 PM MANAGER ATHLETICS Temperature - - Respiratory Rate - - Oxygen Saturation 96% 07/20/2023 3:26 PM MANAGER ATHLETICS Inhaled Oxygen Concentration - - Weight 96.8 kg (213 lb 6.4 oz) 07/20/2023 3:26 P M MANAGER ATHLETICS Height 175.3 cm (5' 9 ) 07/20/2023 3:26 PM MANAGER ATHLETICS Body Mass Index 31.51 07/20/2023 3:26 PM MANAGER ATHLETICS documented in this encounter Progress Notes * [...] office in 4 months in follow-up Joaquín Abraca MD This note was written using a voice recognition system hardware device. Please note there may be variance in spelling, grammar, and syntax because of the voice recognition system hardware. Not every sentence has been reviewed in its entirety and if there are any concerns about the verbage above please contact Dr. Abarca directly at [phone]. GER [employer]TH[employer]ICS documented in this encounter Plan of Treatment [...] documented as of this encounter Care Teams Radiology Receptionist Relationship Specialty Start Date End Date Carl Strickland MD [address] [place] [address] PCP - General Internal Medicine 06/06/23 Leo Manazno MD [address] [facility] [address] [place] [address] Surgeon Vascular Surgery 05/16/23 documented as of this encounter
--- OUTSIDE RECORDS SUMMARY | 2024-05-30 06:28 | XMS_ITS | Encounter Summary ---
Author Organization [facility] Address [address] [place] [address] Phone Care Team Providers Care User Interface Engineer Name Role Phone Leo Manzano MD Unavailable [phone] Carl Strickland MD Primary Care Provider Reason for Referral * Diagnostic Imaging (Routine) - Closed Specialty Diagnoses / Procedures Referred By Fernando alan Referred To Contact Diagnoses Nephrolithiasis Procedures US Kidney Complete Marcus Gamboa MD Phone: tel: fax: [address] [phone] Referral ID Status Reason Start Date Expiration Date Visits Re quested Visits Authorized [id number] Closed 07/06/2023 08/04/2024 1 1 TRY PATHOLOGIST Encounter Details Date Type Department Care Team (Late st Contact Info) Description 07/06/2023 Orders Only [facility] Urology [address] [facility] [address] [place] [address] Marcus Gamboa MD [address] [place] [address] Nephrolithiasis (Primary Dx) Social History Tobacco Use [...] often do you attend chur ch or restorationist services? 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 Electronically signed by: Tiffany Sosa M.D. [facility] Qiana Gamboa MD [facility] US PROCEDURES F inal Result documented in this encounter Visit Diagnoses Diagnosis Nephrolithiasis- Primary Calculus of kidney Nephrolithiasis Calculus of kidney documented in this encounter Care Teams User Interface Engineer Relationship Specialty Start Date End Date Carl Strickland MD [address] [facility] [address] [place] [address] PCP - General Internal Medicine 06/06/23 Leo Manzano MD [id number] [place] [address] Surgeon Vascular Surgery 05/16/23 documented as of this encounter
--- OUTSIDE RECORDS SUMMARY | 2024-05-30 06:28 | XMS_ITS | Encounter Summary ---
Author Organization [facility] Healthcare Address [address] [place] [address] Care Team Providers Care Cake Winder Name Role Phone Leo Manzano MD Unavailable [phone] Carl Strickland MD Primary Care Provider Reason for Visit * Reason Comments Abdominal Pain * Auth/Cert (Routine) Specialty Diagnoses / Procedures Referred By Contac t Referred To Contact Diagnoses Ureteral stone Left flank pain Procedures N/A Referral ID Status Reason Start Date Expiration Date Visits Re quested Visits Authorized [id number] 1 1 Encounter Details Date Type Department Care Team (Latest Contact Info) Description 07/04/2023 12:12 PM ROLLER SHOP UTILITY WORKER - 07/08/2023 3:00 PM ROLLER SHOP UTILITY WORKER Hospital Encounter [facility] [address] [place] [address] Nagi Landa MD [address] [place] [address] Chelle Elloitt MD [address] [place] [address] Marcus Gamboa MD [address] [place], [place] [id number] Left flank pain (Primary Dx); Ureteral stone Discharge Disposition: Discharge to home or self care Social History Tobacco Use Types Packs/Day Years Used Date Smoking Tobacco: Never Smokeless Tobacco: Never Alcohol Use Standard Drinks/Week Comments Not Currently 0 (1 standard drink = 0.6 oz pur e alcohol) [facility] Utilities Answer Date Recorded In the [...] often do you attend chur ch or mandaeism services? More than 4 times per year [...] on file Legal Sex Male 3:42 AM ROLLER SHOP UTILITY WORKER Gender Identity Not on file Sexual Orientation Straight 06/12/2023 11 :43 PM ROLLER SHOP UTILITY WORKER documented as of this encounter Last Filed Vital Signs Vital Sign Reading Time Taken Comments Blood Pressure 135/88 07/08/2023 11:40 AM ROLLER SHOP UTILITY WORKER Pulse 74 07/08/2023 11:40 AM ROLLER SHOP UTILITY WORKER Temperature 36.8 ??C (98.2 ??F) 07/08/2023 11:[address] Respiratory Rate 18 07/08/2023 11:40 AM ROLLER SHOP UTILITY WORKER Oxygen Saturation 96% 07/08/2023 11:40 AM ROLLER SHOP UTILITY WORKER Inhaled Oxygen Concentration - - Weight 97.5 kg (215 lb) 07/04/2023 11:41 AM ROLLER SHOP UTILITY WORKER Height 175.3 cm (5' 9 ) 07/04/2023 11:41 AM ROLLER SHOP UTILITY WORKER Body Mass Index 31.75 07/04/2023 11:41 AM ROLLER SHOP UTILITY WORKER documented in this encounter Discharge Summaries * Gisele Courtney CEILING INSULATION BLOWER - 07/08/2023 1:02 PM CST Inpatient Discharge Summary BRIEF OVERVIEW Admitting Provider: Marcus Gamboa MD Discharge Provider: Marcus Gamboa MD Primary Care Physician at Discharge: Carl Strickland MD [phone] Admission Date: 07/04/2023 Discharge Date: 07/08/2023 Admission Location: [facility] Problems/Diagnoses: Principal Problem: Ureteral stone Active Problems: Left flank pain Resolved Problems: No resolved hospital problems. DETAILS OF HOSPITAL STAY Presenting Problem/History of Present Illness: Eriberto Chau is a 33 y.o. 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 ED on 07/04/2023 with a chief complaint [...] CAR CAM 8B Cardiology 08/03/2023 2:00 PM [facility] [id number] [facility] CT [id number] 08/03/2023 2:45 PM Leo Manzano MD [facility]3 [address] 10/07/2023 9:[address] [facility] [id number] BJN US [facility] Main IMG 10/07/2023 10:00 AM Marcus Gamboa MD URO CAM 11C [address] Contact Information for Follow-ups [facility] Surgery Specialty: Vascular Surgery [address] [place] [address] 8th [address] [facility] [address] Next Steps: Follow up Instructions: Surveillance after [...] Marcus Gamboa MD at 07/14/2023 5:32 PM ROLLER SHOP UTILITY WORKER ER SHOP UTILITY WORKER ER SHOP UTILITY WORKER documented in this encounter Discharge Instructions * Discharge Instructions* Gisele Courtney NP - 07/08/2023 11:14 AM ROLLER SHOP UTILITY WORKER Images from the original note were not [...] within 3 months. Medications: You may take [id number]-[id number] stool softener to prevent constipation. Take all [...] removal on 07/14/2023 as scheduled. Please call [phone] with any questions or concerns. ER SHOP UTILITY WORKER ER SHOP UTILITY WORKER ER SHOP UTILITY WORKER documented in this encounter Medications at [...] Surgery Daily Progress Patient Name/MRN: Eriberto Chau [id number] Treatment Team: Vascular Surgery- Attending: Marcus Gamboa [facility]* Today's Date: 07/08/2023 Room/Bed: [id number] Admit Date: 07/04/2023 Code Status: Full Code [...] tablet 1,000 mg 1,000 mg oral Q6H COUNTS INCLUDE 234 BEDS AT THE [facility] Kristine Viera MD 1,000 mg at [...] mg 15 mg intravenous Q6H Gisele Perez CEILING INSULATION BLOWER 15 mg at07/08/23 0539 methocarbamoL (ROBAXIN) tablet 750 mg 750 mg oral TID Gisele Courtney CEILING INSULATION BLOWER 750 mg at 07/08/23 0820 ondansetron (ZOFRAN) injection 4 mg 4 mg intravenous Q6H PRN Gisele Courtney CEILING INSULATION BLOWER 4 mg at 07/07/23 1018 oxyBUTYnin XL (DITROPAN-XL) extended release tablet 10 mg 10 mg oral Daily Gisele Courtney CEILING INSULATION BLOWER 10 mg at 07/08/23 0820 oxyCODONE (ROXICODONE) tablet 5 mg 5 mg oral Q4H PRN America Rowe MD 5 mg at 07/08/23 0959 phenazopyridine (PYRIDIUM) tablet 200 mg 200 mg oral TID with meals Gisele Courtney CEILING INSULATION BLOWER 200 mg at 07/08/23 0820 prochlorperazine (COMPAZINE) injection 5 mg 5 mg intravenous Q6H PRN Gisele Courtney CEILING INSULATION BLOWER 5 mg at 07/07/23 0634 ramelteon (ROZEREM) [...] mg 15 mg/kg intravenous Q12H Gisele Courtney, CEILING INSULATION BLOWER Stopped at 07/08/23 0341 Objective Vitals: 24hr [...] Diet Regular Diet effective now Question: ([facility]) Diet type Answer: Regular 07/06/23 1125 07/05/23 1453 Oral Nutrition Supplements ([facility]) Select Supplement: Thrive - Any Flavor; Quantity (# of cans): 1 can All Meals Question Answer Comment ([facility]) Select Supplement: Thrive - Any Flavor Quantity [...] Alonzo Duncan MD at 07/08/2023 1:46 PM ROLLER SHOP UTILITY WORKER ER SHOP UTILITY WORKER ER SHOP UTILITY WORKER * Chung Burleson MD - 07/08/2023 11:00 [...] tablet 1,000 mg 1,000 mg oral Q6H COUNTS INCLUDE 234 BEDS AT THE [facility] amLODIPine (NORVASC) tablet 10 mg 10 mg oral Daily aspirin chewable tablet 81 mg 81 mg oral Daily carvediloL (COREG) tablet 25 mg 25 mg oral BID with meals (bkfst, dinner) cefepime (MAXIPIME) 1,000 mg/10 mL in sterile water (premix) 1,000 mg 1,000 mg intravenous Q12H COUNTS INCLUDE 234 BEDS AT THE [facility] enoxaparin (LOVENOX) syringe 40 mg 40 mg subcutaneous Daily-2100 gabapentin (NEURONTIN) capsule 300 mg 300 mg oral TID hydrALAZINE (APRESOLINE) tablet 50 mg 50 mg oral TID hyoscyamine (LEVSIN) sublingual tablet 125 mcg 125 mcg sublingual Q6H ketorolac (TORADOL) 15 mg/mL injection 15 mg 15 mg intravenous Q6H COUNTS INCLUDE 234 BEDS AT THE [facility] methocarbamoL (ROBAXIN) tablet 750 mg 750 mg oral TID oxyBUTYnin XL (DITROPAN-XL) extended release tablet 10 mg 10 mg oral Daily phenazopyridine (PYRIDIUM) tablet 200 mg 200 mg oral TID with meals senna-docusate (PERICOLACE) 8.6-50 mg per tablet 2 tablet 2 tablet oral BID sodium chloride 0.9% flush 0.5-20 mL 0.5-20 mL intra-catheter Q8H COUNTS INCLUDE 234 BEDS AT THE [facility] tamsulosin (FLOMAX) extended release capsule 0.4 [...] tablet 1,000 mg 1,000 mg oral Q6H COUNTS INCLUDE 234 BEDS AT THE [facility] Kristine Viera MD 1,000 mg at [...] mg 1,000 mg intravenous Q12H Gisele Mckeon CEILING INSULATION BLOWER 120 mL/hr at 07/08/23 1211 1,000 mg at 07/08/23 1211 enoxaparin (LOVENOX) syringe 40 mg 40 mg subcutaneous Daily-2100 Gisele Coutrney CEILING INSULATION BLOWER 40 mg at 07/07/23 2120 gabapentin (NEURONTIN) capsule 300 mg 300 mg oral TID Terrell Luna MD 300 mg at 07/08/23 0819 hydrALAZINE (APRESOLINE) tablet 50 mg 50 mg oral TID Terrell Luna MD 50 mg at 07/08/23 0837 hyoscyamine (LEVSIN) sublingual tablet 125 mcg 125 mcg sublingual Q6H Gisele Courtney CEILING INSULATION BLOWER 125 mcg at 07/08/23 1234 ketorolac (TORADOL) 15 mg/mL injection 15 mg 15 mg intravenous Q6H COUNTS INCLUDE 234 BEDS AT THE [facility] Gisele Courtney, CEILING INSULATION BLOWER 15 mg at07/08/23 1211 methocarbamoL (ROBAXIN) tablet 750 mg 750 mg oral TID Gisele Courtney, CEILING INSULATION BLOWER 750 mg at 07/08/23 0820 ondansetron (ZOFRAN) [...] Diet Regular Diet effective now Question: ([facility]) Diet type Answer: Regular 07/06/23 1125 07/05/23 1453 Oral Nutrition Supplements ([facility]) Select Supplement: Thrive - Any Flavor; Quantity (# of cans): 1 can All Meals Question Answer Comment ([facility]) Select Supplement: Thrive - Any Flavor Quantity [...] IV: Discontinue Hydromorphone 0.5mg q 4hr PRN IV/SWABBER: none SubQ: none b. Adjuvants: Continue APAP [...] MD Acute Pain Service Department of Anesthesiology [facility] [phone] This pager does not accept voice messages. Please enter your callback number and press #. 07/08/2023 6:32 PM I have seen and evaluated the patient and agree with the above Chung Burleson MD ER SHOP UTILITY WORKER ER SHOP UTILITY WORKER ER SHOP UTILITY WORKER * Dalton Vizcaino MD - 07/07/2023 9:00 PM CST Vascular Surgery Daily Progress Patient Name/MRN: Eriberto Chau [id number] Treatment Team: Vascular Surgery- Attending: Marcus Gamboa* Today's Date: 07/08/2023 Room/Bed: [place] [id number] Admit Date: 07/04/2023 Code Status: Full Code [...] mg 1,000 mg intravenous Q12H SCHEGisele hawthorne CEILING INSULATION BLOWER 120 mL/hr at 07/08/230 1,000 mg at 07/08/230 enoxaparin (LOVENOX) syringe 40 mg 40 mg subcutaneous Daily-2099 Gisele Courtney, CEILING INSULATION BLOWER 40 mg at 07/07/232119 gabapentin (NEURONTIN) capsule 300 mg 300 mg oral TID Terrell Luna MD 300 mg at 07/07/232122 hydrALAZINE (APRESOLINE) tablet 50 mg 50 mg oral TID Terrell Luna MD 50 mg at 07/07/232123 HYDROmorphone (DILAUDID) injection 0.5 mg 0.5 mg intravenous Q2H PRN America Rowe MD 0.5 mg at 07/07/232116 hyoscyamine (LEVSIN) injection 0.25 mg 0.25 mg intravenous Q6H COUNTS INCLUDE 234 BEDS AT THE [facility] Gisele Courtney CEILING INSULATION BLOWER 0.25 mg at 07/08/239 ketorolac (TORADOL) 15 mg/mL injection 15 mg 15 mg intravenous Q6H COUNTS INCLUDE 234 BEDS AT THE [facility] Gisele Courtney, CEILING INSULATION BLOWER 15 mg at07/08/239 Lactated Ringer's (LR) infusion 125 mL/hr intravenous Continuous America Rowe MD 125 mL/hr at 07/07/232117 125 mL/hr at 07/07/232117 methocarbamoL (ROBAXIN) tablet 750 mg 750 mg oral TID Gisele Courtney CEILING INSULATION BLOWER 750 mg at 07/07/232119 ondansetron (ZOFRAN) injection 4 mg 4 mg intravenous Q6H PRN Gisele Courtney, CEILING INSULATION BLOWER 4 mg at 07/07/23 1018 oxyBUTYnin XL (DITROPAN-XL) extended release tablet 10 mg 10 mg oral Daily Gisele Courtney, CEILING INSULATION BLOWER 10 mg at 07/07/23 0847 oxyCODONE (ROXICODONE) [...] mg 15 mg/kg intravenous Q12H Gisele Courtney CEILING INSULATION BLOWER Stopped at 07/07/23 171 Objective Vitals: 24hr [...] Diet Regular Diet effective now Question: ([facility]) Diet type Answer: Regular 07/06/23 1125 07/05/23 1453 Oral Nutrition Supplements ([facility]) Select Supplement: Thrive - Any Flavor; Quantity (# of cans): 1 can All Meals Question Answer Comment ([facility]) Select Supplement: Thrive - Any Flavor Quantity [...] Nikhil Samuel MD at 07/18/2023 11:03 AM ROLLER SHOP UTILITY WORKER ER SHOP UTILITY WORKER ER SHOP UTILITY WORKER ER SHOP UTILITY WORKER * Timmy Rosales - 07/07/2023 3:53 PM CST Fr Timmy Rosales [phone] 07/07/23 1500 Time Spent Start Time 1510 Stop Time 1530 Time Calculation (min) 20 min Patient Spiritual Assessment Spirituality Assessed Yes Voodoo Affiliation Congregational Active in Latter Day Yes Spiritual Needs [...] Achieved Interventions Interventions Active listening;Offer emotional support;Offer spiritual/mandaeism support;Prayer (Benediction) ER SHOP UTILITY WORKER * Gisele Courtney, CEILING INSULATION BLOWER - 07/07/2023 11:04 AM CST Images from [...] follow, appreciate recommendations Gisele Courtney NP 07/07/2023 [facility] Urology Service ER SHOP UTILITY WORKER * Timmy Rosales - 07/06/2023 3:55 PM CST Fr Timmy Rosales [phone] 07/06/23 1500 Time Spent Start Time 1310 Stop Time 1320 Time Calculation (min) 10 min Patient Spiritual Assessment Spirituality Assessed Yes Voodoo Affiliation Congregational Active in Latter Day Yes Spiritual Needs [...] Achieved Interventions Interventions Active listening;Offer emotional support;Offer spiritual/mandaeism support;Prayer (Benediction) ER SHOP UTILITY WORKER * Gisele Courtney NP - 07/06/2023 11:23 [...] follow, appreciate recommendations Gisele Courtney NP 07/06/2023 [facility] Urology Service Cosigned by Marcus Gamboa MD at 07/07/2023 6:23 AM ROLLER SHOP UTILITY WORKER ER SHOP UTILITY WORKER ER SHOP UTILITY WORKER * Georgia Novoa MD - 07/06/2023 6:00 AM CST Vascular Surgery Daily Progress Patient Name/MRN: Eriberto Chau [id number] Treatment Team: Vascular Surgery- Attending: Marcus Gamboa* Today's Date: 07/06/2023 Room/Bed: [place] [id number] Admit Date: 07/04/2023 Code Status: Full Code [...] 4 mg intravenous Q6H PRN Gisele Courtney CEILING INSULATION BLOWER 4 mg at 07/05/23 2247 oxyBUTYnin XL (DITROPAN-XL) extended release tablet 10 mg 10 mg oral Daily Gisele Courtney CEILING INSULATION BLOWER 10 mg at 07/06/23 1206 oxyCODONE (ROXICODONE) tablet 5 mg 5 mg oral Q4H PRN America Rowe MD 5 mg at 07/06/23 0837 phenazopyridine (PYRIDIUM) tablet 200 mg 200 mg oral TID with meals Gisele Courtney CEILING INSULATION BLOWER 200 mg at 07/06/23 1206 prochlorperazine (COMPAZINE) injection 5 mg 5 mg intravenous Q6H PRN Gisele Courtney CEILING INSULATION BLOWER 5 mg at 07/06/23 0837 ramelteon (ROZEREM) [...] mg 15 mg/kg intravenous Q12H Gisele Courtney CEILING INSULATION BLOWER Stopped at 07/06/23 0456 Objective Vitals: 24hr [...] Diet Regular Diet effective now Question: ([facility]) Diet type Answer: Regular 07/06/23 1125 07/05/23 1453 Oral Nutrition Supplements ([facility]) Select Supplement: Thrive - Any Flavor; Quantity (# of cans): 1 can All Meals Question Answer Comment ([facility]) Select Supplement: Thrive - Any Flavor Quantity [...] Nikhil Samuel MD at 07/18/2023 11:03 AM ROLLER SHOP UTILITY WORKER ER SHOP UTILITY WORKER ER SHOP UTILITY WORKER * Kristy Headley MD - 07/05/2023 12:41 PM CST Vascular Surgery Daily Progress Patient Name/MRN: Eriberto Chau [id number] Treatment Team: Vascular Surgery- Attending: Marcus Gamboa* Today's Date: 07/05/2023 Room/Bed: [id number] Admit Date: 07/04/2023 Code Status: Full Code [...] Diet Regular Diet effective now Question: ([facility]) Diet type Answer: Regular 07/04/232146 Is&Os: I/O [...] Nikhil Samuel MD at 07/18/2023 11:03 AM ROLLER SHOP UTILITY WORKER ER SHOP UTILITY WORKER ER SHOP UTILITY WORKER * Gisele Courtney CEILING INSULATION BLOWER - 07/05/2023 12:30 PM CST Images from [...] follow, appreciate recommendations Gisele Courtney NP 07/05/2023 [facility] Urology Cosigned by Marcus Gamboa MD at 07/14/2023 5:32 PM ROLLER SHOP UTILITY WORKER ER SHOP UTILITY WORKER ER SHOP UTILITY WORKER ER SHOP UTILITY WORKER ER SHOP UTILITY WORKER * Navid Johnson MD - 07/04/2023 10:51 [...] Marcus Gamboa MD at 07/05/2023 7:13 AM ROLLER SHOP UTILITY WORKER ER SHOP UTILITY WORKER ER SHOP UTILITY WORKER Associated attestation - Marcus Gamboa MD - 07/05/2023 7:13 AM ROLLER SHOP UTILITY WORKER I have seen and examined the patient on 07/04/2023. I agree with the findings and plan of care as documented in the resident's/fellow's note.. documented in this encounter Consult Notes * Chung Burleson MD - 07/07/2023 6:22 PM CSTAssociated Order(s): IP CONSULT TO PAIN MANAGEMENT Pain Service Consult Eriberto Chau, [id number] Reason for Consult: Post procedural abdominal pain [...] Amitriptyline (Elavil) [] Levetiracetam (Keppra) [] Hydrocodone/APAP ([place]) [] Desipramine (Norpramin) [] Valproate (Depakote) [] [...] mg 1,000 mg intravenous Q12H Gisele Mckeon, CEILING INSULATION BLOWER Stopped at 07/07/23 1252 enoxaparin (LOVENOX) syringe [...] injection 0.25 mg 0.25 mg intravenous Q6H COUNTS INCLUDE 234 BEDS AT THE [facility] Gisele Courtney CEILING INSULATION BLOWER 0.25 mg at 07/07/23 1713 ketorolac (TORADOL) 15 mg/mL injection 15 mg 15 mg intravenous Q6H COUNTS INCLUDE 234 BEDS AT THE [facility] Gisele Courtney CEILING INSULATION BLOWER 15 mg at07/07/23 1713 Lactated Ringer's (LR) [...] mg oral TID with meals Gisele Courtney CEILING INSULATION BLOWER 200 mg at 07/07/23 1713 prochlorperazine (COMPAZINE) injection 5 mg 5 mg intravenous Q6H PRN Gisele Courtney CEILING INSULATION BLOWER 5 mg at 07/07/23 0634 ramelteon (ROZEREM) [...] Diet Regular Diet effective now Question: ([facility]) Diet type Answer: Regular 07/06/23 1125 07/05/23 1453 Oral Nutrition Supplements ([facility]) Select Supplement: Thrive - Any Flavor; Quantity (# of cans): 1 can All Meals Question Answer Comment ([facility]) Select Supplement: Thrive - Any Flavor Quantity [...] IV: decrease Hydromorphone 0.5mg q 4hr PRN IV/SWABBER: none SubQ: none b. Adjuvants: Continue APAP [...] MD Acute Pain Service Department of Anesthesiology [facility], [facility] If you have questions or concerns, please call ([phone]) the Pain Management service. After hours, this is not an in-house pager, please reserve non-urgent calls from [phone]. We are happy to address emergent calls 20/12. 07/07/23 6:22 PM For patients or family members viewing this note through [employer] programs: This note was written as a [...] agree with the above Chung Burleson MD ER SHOP UTILITY WORKER ER SHOP UTILITY WORKER * Dominic Meraz, DIRK - 07/07/2023 5:10 [...] 18 CREATININE mg/dL 0.80 < > 1.33* [id number] mL/min/1.73 m2 >90 < > 73 CALCIUM [...] of Weight Used for Estimated Protein : [place] Fluid Needs Based on : 1 ml/kcal Dietary Orders (From admission, onward) Start Ordered 07/06/23 1126 Adult Diet Regular Diet effective now Question: ([facility]) Diet type Answer: Regular 07/06/23 1125 07/05/23 1453 Oral Nutrition Supplements ([facility]) Select Supplement: Thrive - Any Flavor; Quantity (# of cans): 1 can All Meals Question Answer Comment ([facility]) Select Supplement: Thrive - Any Flavor Quantity [...] emesis was 07/04 per documentation. Last BM TYING IN MACHINE OPERATOR - Noted scheduled Pericolace BID. RD following. [...] Supplement tolerance, Electrolyte changes Dominic Meraz RD [phone] Math Teacher-Weekend: [phone] ER SHOP UTILITY WORKER * Angelica Mijares LCSW - 07/07/2023 4:43 PM CST SW consult: SW received consult for health disparity and social determinants of health. SW spoke with patient's mom regarding resource assistance needs. Patient's mom reported they have been assisting with their rent and utilities, however they are unsure how long he will be out of workand cannot financially support them long term acute care registered nurse. She also requested information and assistance with disability. SW sent several referrals via [employer] for rental/mortgage assistance, utility bill assistance, and benefits eligibility assistance. She declined the need for any food related assistance as they already get food stamps for the family. She requested someone follow up with her regarding which referrals are accepted and able to provide assistance. LIZZ Hodgson LCSW ER SHOP UTILITY WORKER * Dominic Meraz RD - 07/05/2023 4:09 [...] BUN SERUM mg/dL 18 CREATININE mg/dL 1.33* [id number] mL/min/1.73 m2 73 CALCIUM mg/dL 10.1 ALBUMIN [...] of Weight Used for Estimated Protein : [place] Fluid Needs Based on : 1 ml/kcal Dietary Orders (From admission, onward) Start Ordered 07/05/23 1453 Adult Diet Regular; Gatorade Diet effective now Comments: Please allow pt to order Gatorade as requested. Question Answer Comment ([facility]) Diet type Regular Other Services: Gatorade 07/05/23 1452 07/05/23 1453 Oral Nutrition Supplements ([facility]) Select Supplement: Thrive - Any Flavor; Quantity (# of cans): 1 can All Meals Question Answer Comment ([facility]) Select Supplement: Thrive - Any Flavor Quantity [...] episode of emesis on 07/04. Last BM TYING IN MACHINE OPERATOR. RD following. Wt Readings from Last 10 [...] Supplement tolerance, Electrolyte changes Dominic Meraz RD [phone] Math Teacher-Weekend: [phone] ER SHOP UTILITY WORKER * Dalton Vizcaino MD - 07/04/2023 5:15 [...] Dalton Vizcaino MD Department of Surgery, PGY-2 [facility] in [place]/[facility] Please use [email or web address] to find phone number Cosigned by Nikhil Samuel MD at 07/18/2023 11:02 AM ROLLER SHOP UTILITY WORKER ER SHOP UTILITY WORKER ER SHOP UTILITY WORKER * File, Parsi Esquivel NP - 07/04/2023 3:13 PM CSTAssociated [...] or concerns, please page Urology through the impregnation operator. Paris Villalpando NP 07/04/2023 Cosigned by Marcus Gamboa MD at 07/04/2023 6:50 PM ROLLER SHOP UTILITY WORKER ER SHOP UTILITY WORKER ER SHOP UTILITY WORKER documented in this encounter Nursing Notes * Mariposa Harris RN - 07/08/2023 3:00 PM CST Patient discharged to home with mother. IV removed, meds received from mobile pharmacy, and discharge paperwork given and reviewed with patient. ER SHOP UTILITY WORKER * Alicia Good RN - 07/07/2023 7:48 PM CST Pt. Is A&OX4, continue to complain of pain, had scheduled and PRN pain meds multiple times 9 oxy, dialudid), contd. On IVF, ambulated well with walker, eating meals good, was nauseated little in the morning, got some zofran, but has been better through the day ER SHOP UTILITY WORKER * Idalia Travis RN - 07/06/2023 8:03 AM CST Pt returned to room [address], BP 140/68 ER SHOP UTILITY WORKER * Sherri Negrete RN - 07/05/2023 4:35 [...] 0456 Dr. Barrientos updated the LR order ER SHOP UTILITY WORKER ER SHOP UTILITY WORKER documented in this encounter ED Notes [...] Chronic back pain 06/24/2023 Pseudoaneurysm following procedure ([facility]) ([facility]) 06/24/2023 Infrarenal abdominal aortic aneurysm, without rupture ([facility]) 06/13/2023 Polysubstance abuse ([facility]) ([facility]) 06/10/2023 Moderate malnutrition ([facility]) ([facility]) 06/09/2023 Dissection of abdominal aorta ([facility]) ([facility]) 06/03/2023 Urinary retention 05/16/2023 Epistaxis 05/13/2023 Pneumonia 05/13/2023 HTN (hypertension) 05/13/2023 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 By: Jonathan Borja MD Time: 07/04 830 Comment: IMPRESSION: 1. Redemonstrated thoracoabdominal aortic dissection [...] Nagi Landa MD at 07/07/2023 9:57 AM ROLLER SHOP UTILITY WORKER ER SHOP UTILITY WORKER ER SHOP UTILITY WORKER ER SHOP UTILITY WORKER Associated attestation - Nagi Landa MD - 07/07/2023 9:57 AM ROLLER SHOP UTILITY WORKER I have seen and examined the patient on 07/04/2023. I agree with the findings and plan of care as documented in the resident's note. * Essie Cuevas RN - 07/04/2023 12:12 PM CST Bed: [facility] Expected date: Expected time: Means of arrival: Comments: Triage pt Essie Cuevas RN 02/05/24 1212 ER SHOP UTILITY WORKER * Tami Díaz RN - 07/04/2023 11:35 AM CST Pt to ED with lower left ABD pain this morning around 0900. Pt states he has chronic lower back pain but now the pain radiates to his ABD. Hx of HTN, AAA post TEVAR on 06/05 and kidney stones. ER SHOP UTILITY WORKER documented in this encounter Miscellaneous Notes [...] lb) as of 07/04/2023 -- -- -- [place] Weight: 70.7 kg (155 lb 13.8 oz) [...] medical record. Respectfully Lon HAMMER RN CCDS [email or web address] [phone] ER SHOP UTILITY WORKER * Provider Query - Gisele Courtney CEILING INSULATION BLOWER - 07/08/2023 3:00 PM CST Specify a [...] fat ? muscle ? fluid/edema 6: Reduced Family Preservation Officer Strength n/a Measurably reduced per device standards [...] medical record. Respectfully Lon HAMMER RN CCDS [email or web address] [phone] ER SHOP UTILITY WORKER * Plan of Care - Mariposa Harris [...] control, safety Summary: Patient ready for discharge. ER SHOP UTILITY WORKER * Plan of Care - Anabel Taylor [...] needs. Support following discharge: meron blankenship Mother [phone]; Solange Ireland [phone]; Geri Alejandre Partner [phone] Transportation: per mother F/U Appointments: to be arranged by the medical team prior to discharge Plan for weekend discharge: No identified CM needs at this time For weekend assistance, please check the treatment team in [facility] for the assigned rn case management or contact the weekend Case Management phone ER SHOP UTILITY WORKER * Plan of Care - Navin Ventura [...] Shift: monitor pain, spasm, I/O, vitals Summary: ER SHOP UTILITY WORKER * Plan of Care - Harriett Ordonez [...] activity level will improve Outcome: Not Progressing ER SHOP UTILITY WORKER * Plan of Care - Genevieve Ng LCSW - 07/06/2023 3:25 PM CST SW consulted due to patient being a 35% readmission risk, and this being patient's 5th inpatient admission. Patient was seen last admission by SW and SW assessment was completed on 06/15/2023. Patient's mother, Meron Blankenship ([phone]) was present at bedside at time of [...] to continue to follow. Genevieve Ng LCSW [phone] Predictive Model Details 35% (High Risk) Factor [...] 1% Current length of stay 0.942 days ER SHOP UTILITY WORKER * Initial Assessments - Anabel Taylor RN - 07/06/2023 2:43 PM ROLLER SHOP UTILITY WORKER CM Initial Assessment Interview Note Information Obtained [...] Coverage: [employer] Medicaid Prescription Coverage: yes Pharmacy: [facility]/pharmacy #[id number] - [place], [place] - [address] [facility] [address] [id number] - [place], [place] - [address] [facility] [phone] -verified [facility] Primary Care Provider: Carl Strickland MD -new patient appointment Jul 13, 2023 Prior to Admission: Functional Status: Independent with ADLs Primary Caregiver: Self Support System: Spouse/Significant Other, Family members (meron blankenship Mother [phone]; Solange Ireland [phone]; HillCesaralfred Partner [phone]) Home Care Services: No Outpatient Services: No [...] Collaboration with patient, MD, direct care nurse, Hand Thermal Cutter, and other members of the health care team to assure needed interventions completed. 2. Return patient to optimal level of self-care post discharge. 3. Buyer Internship will follow for Discharge Planning - interventions [...] with the aftercare plan. Anabel Taylor RN ER SHOP UTILITY WORKER * Plan of Care - Harriett Ordonez [...] the pain will improve Outcome: Ongoing Summary: ER SHOP UTILITY WORKER * Plan of Care - Ev Meza RN - 07/05/2023 6:24 PM CST Goals: Clinical Goals for the Shift: orient patient to floor, monitor vitals and I&O's, pain management, ambulation Summary: Continue to monitor vitals and temp for fever. Monitor and treat pain as ordered. ER SHOP UTILITY WORKER * Plan of Care - Sherri Negrete [...] therapeutic regimen will improve 07/05/2023 023 by Shreri Negrete RN Outcome: Progressing 07/05/202343 by Sherri [...] patient has had no urine output overnight ER SHOP UTILITY WORKER * Op Note - Marcus Gamboa MD - 07/04/2023 7:30 PM CST Operative Report SURGEON: Marcus Gamboa MD SURGICAL TEAM: Bad Cloth Checker: Essie Glass RN Assembler Equipment: Guerrero Seals RT Scrub: Len Richards RN DATE OF SURGERY : 07/04/2023 PREOPERATIVE DIAGNOSIS: Pre-op Diagnosis * Ureteral stone [N20.1] POSTOPERATIVE DIAGNOSIS: Post-op Diagnosis * Ureteral stone [N20.1] PROCEDURE: CYSTOSCOPY, URETEROSCOPY (L) with EXTRACTION STONE (L), PLACEMENT STENT - URETERAL (L) INDICATION FOR PROCEDURE: 33yoM with a symptomatic left ureteral stone. ANESTHESIA: General IMPLANTS: Implant Name Type Inv. Item Serial No. Obstetrician Gynecologist Lot No. LRB No. Used [employer] Inlay A[place]o 6fr 28cm Pusher Fluoro Marker Atraumatic Insertion Latex [id number] - [id number] Stent [employer] Inlay Aledo 6fr 28cm Pusher Fluoro Marker Atraumatic Insertion Latex [id number] [employer] [id number] Left 1 Implanted OPERATIVE DETAILS Estimated Blood [...] Over the wire, we advanced a 12-14 bulgarian x 46 cm ureteral access sheath underfluoroscopic [...] Over the wire we placed a 6 bulgarian x 28 cm left Bard Onlay ureteral [...] the entire procedure (including opening and closing). ER SHOP UTILITY WORKER ER SHOP UTILITY WORKER * Brief Op Note - Terrell Luna MD - 07/04/2023 7:30 PM ROLLER SHOP UTILITY WORKER Operative Progress Note Surgical Team: Surgeon(s) and Role: * Marcus Gamboa MD - Primary * Terrell Luna MD - Resident - Assisting Anesthesiologist: Artem Zepeda MD DEVELOPER SUPPORT ENGINEER: Christoph Singh CRNA Bad Cloth Checker: Essie Glass RN Assembler Equipment: Guerrero Seals, Scrub: Len Richards RN DATE [...] Implant Name Type Inv. Item Serial No. Obstetrician Gynecologist Lot No. LRB No. Used [employer] Inlay Aledo 6fr 28cm Pusher Fluoro Marker Atraumatic Insertion Latex [id number] - [id number] Stent [employer] Inlay Aledo 6fr 28cm Pusher Fluoro Marker Atraumatic Insertion Latex Free [id number] [employer] [id number] Left 1 Implanted Blood/Blood Products Transfused: 0 mls Complications: None Condition on Discharge from the operating room was stable Terrell Luna MD Date: 07/04/2023 Time: 8:02 PM Cosigned by Marcus Gamboa MD at 07/04/2023 9:18 PM ROLLER SHOP UTILITY WORKER ER SHOP UTILITY WORKER ER SHOP UTILITY WORKER Associated attestation - Marcus Gamboa MD - 07/04/2023 9:18 PM ROLLER SHOP UTILITY WORKER I have seen and examined the [...] explain symptoms. By: Jonathan Borja MD Time: 07/042 Comment: IMPRESSION: 1. Redemonstrated thoracoabdominal aortic dissection [...] device. By: Jonathan Borja MD Time: 07/04 4107 Comment: Spoke to urology they will come [...] stone By: Ney Acosta MD Time: 07/04 2858 Comment: Spoke with Urology, they think the patient would likely require admission for stent placement. Still pending vascular surgery evaluation. Unclear who the patient will be admitted to yet. By: Ney Acosta MD Time: 07/04 9127 Comment: Urology will take to the OR this afternoon. Still pending vascular eval, will send repeat page By: Ney Acosta MD McElroy, Mitchell Sterling, MD Resident 07/04/23 1528 ER SHOP UTILITY WORKER * ED Procedure Note - Rosey Posada MD - 07/04/2023 11:53 AM ROLLER SHOP UTILITY WORKER Associated Order(s): ECG 12 lead Procedure [...] the ED Rosey Posada MD 07/04/23 1155 ER SHOP UTILITY WORKER documented in this encounter Plan of Treatment Pending Results Name Type Priority Associated Diagnoses Date /Time Creatine kinase (CK), total Lab STAT 07/04/2023 12:23 PM ROLLER SHOP UTILITY WORKER Scheduled Orders Name Type Priority Associated Diagnoses Orde r Schedule Creatine kinase (CK), total Lab STAT Once for 1 Occur rences starting 07/04/2023 until 07/04/2023 documented as of this encounter Procedures Procedure Name Priority Date/Time Associated Diagnosis Comments VANCOMYCIN LEVEL TROUGH Timed 07/07/2023 1:32 AM ROLLER SHOP UTILITY WORKER EGFR Routine 07/06/2023 10:04 PM ROLLER SHOP UTILITY WORKER CBC WITHOUT DIFFERENTIAL Routine 07/06/2023 10:04 PM ROLLER SHOP UTILITY WORKER PHOSPHORUS Routine 07/06/2023 10:04 PM ROLLER SHOP UTILITY WORKER MAGNESIUM Routine 07/06/2023 10:04 PM ROLLER SHOP UTILITY WORKER BASIC METABOLIC PANEL Routine 07/06/2023 10:04 PM ROLLER SHOP UTILITY WORKER CT ABDOMEN PELVIS W CONTRAST ED Urgent/IP Urgent 07/06/2023 7:43 AM ROLLER SHOP UTILITY WORKER CBC WITHOUT DIFFERENTIAL Timed 07/06/2023 5:26 AM ROLLER SHOP UTILITY WORKER LACTATE Timed 07/05/2023 9:14 PM ROLLER SHOP UTILITY WORKER EGFR Timed 07/05/2023 9:14 PM ROLLER SHOP UTILITY WORKER CBC WITHOUT DIFFERENTIAL Timed 07/05/2023 9:14 PM ROLLER SHOP UTILITY WORKER BASIC METABOLIC PANEL Timed 07/05/2023 9:14 PM ROLLER SHOP UTILITY WORKER XR CHEST 1 VIEW ED Urgent/IP Urgent 07/05/2023 1:44 PM ROLLER SHOP UTILITY WORKER XR ABDOMEN AP 1 VIEW ED Urgent/IP Urgent 07/05/2023 1:44 PM ROLLER SHOP UTILITY WORKER LACTATE Routine 07/05/2023 1:09 PM ROLLER SHOP UTILITY WORKER BLOOD CULTURE Timed 07/05/2023 1:09 PM ROLLER SHOP UTILITY WORKER BLOOD CULTURE Timed 07/05/2023 1:09 PM ROLLER SHOP UTILITY WORKER CBC WITHOUT DIFFERENTIAL Routine 07/05/2023 1:09 PM ROLLER SHOP UTILITY WORKER URINE CULTURE Routine 07/05/2023 1:09 PM ROLLER SHOP UTILITY WORKER FL FLUOROSCOPY < 1 HOUR IP Routine 07/04/2023 8:16 PM ROLLER SHOP UTILITY WORKER Ureteral stone SURGICAL PATHOLOGY Routine 07/04/2023 7: 34 PM ROLLER SHOP UTILITY WORKER Ureteral stone EXTRACTION STONE 07/04/2023 7:10 PM ROLLER SHOP UTILITY WORKER Ureteral stone Case Notes [phone] PLACEMENT STENT - URETERAL 07/04/2023 7:10 PM ROLLER SHOP UTILITY WORKER Ureteral stone Case Notes [phone] URETEROSCOPY 07/04/2023 7:10 PM ROLLER SHOP UTILITY WORKER Ureteral stone Case Notes [phone] CYSTOSCOPY 07/04/2023 7:10 PM ROLLER SHOP UTILITY WORKER Ureteral stone Case Notes [phone] TROPONIN I HIGH-SENSITIVITY 2-HOUR Timed 07/04/2023 2:19 PM ROLLER SHOP UTILITY WORKER CTA CHEST ABDOMEN PELVIS ED Urgent/IP Urgent 07/04/2023 2:06 PM ROLLER SHOP UTILITY WORKER URINALYSIS AND REFLEX TO MICROSCOPIC STAT 07/04/2023 1:08 PM ROLLER SHOP UTILITY WORKER URINALYSIS, MICROSCOPIC ONLY STAT 07/04/2023 1:08 PM ROLLER SHOP UTILITY WORKER XR CHEST 1 VIEW ED Urgent/IP Urgent 07/04/2023 12:46 PM ROLLER SHOP UTILITY WORKER TROPONIN I HIGH-SENSITIVITY SERIES (BASELINE, 2HR, 4HR, 6HR) STAT 07/04/2023 12:23 PM ROLLER SHOP UTILITY WORKER LACTATE STAT 07/04/2023 12:23 PM ROLLER SHOP UTILITY WORKER EGFR STAT 07/04/2023 12:23 PM ROLLER SHOP UTILITY WORKER DIFFERENTIAL AUTO STAT 07/04/2023 12: 23 PM ROLLER SHOP UTILITY WORKER CBC WITH AUTO DIFFERENTIAL STAT 07/04/2023 12:23 PM ROLLER SHOP UTILITY WORKER LIPASE STAT 07/04/2023 12:23 PM ROLLER SHOP UTILITY WORKER CREATINE KINASE (CK), TOTAL STAT 07/04/2023 12:23 PM ROLLER SHOP UTILITY WORKER COMPREHENSIVE METABOLIC PANEL STAT 07/04/2023 12:23 PM ROLLER SHOP UTILITY WORKER ECG 12-LEAD STAT 07/04/2023 11:53 AM ROLLER SHOP UTILITY WORKER documented in this encounter Results * Vancomycin level trough Draw trough 30 minutes prior to 4th dose. (07/07/2023 1:32 AM ROLLER SHOP UTILITY WORKER) Pathologist [facility] Vancomycin trough 14.5 10.0 - 20.0 mcg/mL [facility] Blood 07/07/2023 1:32 AM ROLLER SHOP UTILITY WORKER 07/07/2023 1:57 AM ROLLER SHOP UTILITY WORKER Narrative [facility] - 07/07/2023 2:37 AM ROLLER SHOP UTILITY WORKER Draw trough 30 minutes prior to 4th dose. us Gisele Courtney CEILING INSULATION BLOWER LAB BLOOD ORDERABLES Final Res ult [facility] [place] [address] * eGFR (07/06/2023 10:04 PM ROLLER SHOP UTILITY WORKER) Pathologist [facility] eGFR >90 >=60 mL/min/1. 73 m2 [facility] Comment: Interpretive Data Reference Interval [...] reviewed 2021. Blood 07/06/2023 10:0 4 PM ROLLER SHOP UTILITY WORKER 07/06/2023 10:58 PM ROLLER SHOP UTILITY WORKER Marcus Gamboa MD LAB BLOOD ORDERABLE S Final Result [facility] [place] [address] * (ABNORMAL) CBC without differential (07/06/2023 10:04 PM ROLLER SHOP UTILITY WORKER) WBC 12.6(H) 3.8 - 9.9 K/cumm [facility] Hgb 8.0(L) 13.0 - 17.5 g/dL [facility] Hct 24.6(L) 38.9 - 50.3 % [facility] Plt 368 150 - 400 K/cumm [facility] MPV 9.4 9.1 - 12.3 fL [facility] RBC 2.82(L) 4.30 - 5.80 M/cumm [facility] MCV 87.2 81.3 - 96.4 fL [facility] MCH 28.4 27.1 - 33.3 pg [facility] MCHC 32.5 32.3 - 35.7 g/dL [facility] RDW CV 13.7 11.1 - 14.9 % [facility] RDW SD 43.5 35.7 - 48.1 fL [facility] NRBC abs 0.00 0.00 - 0.01 K/cumm [facility] Blood 07/06/2023 10:0 4 PM ROLLER SHOP UTILITY WORKER 07/06/2023 10:57 PM ROLLER SHOP UTILITY WORKER Marcus Gamboa MD LAB BLOOD ORDERABLE S Final Result [facility] [place] [address] * Phosphorus (07/06/2023 10:04 PM ROLLER SHOP UTILITY WORKER) Pathologist [facility] Phosphorus, pl 2.6 2.3 - 4.5 mg/dL [facility] Blood 07/06/2023 10:0 4 PM ROLLER SHOP UTILITY WORKER 07/06/2023 10:58 PM ROLLER SHOP UTILITY WORKER Marcus Gamboa MD LAB BLOOD ORDERABLE S Final Result Performing Organization Address City/[facility]/ZIP Co de Phone Number [facility] Department [place] [address] * Magnesium (07/06/2023 10:04 PM ROLLER SHOP UTILITY WORKER) [facility] Magnesium 1.7 1.4 - 2.5 mg/dL [facility] Blood 07/06/2023 10:0 4 PM ROLLER SHOP UTILITY WORKER 07/06/2023 10:58 PM ROLLER SHOP UTILITY WORKER Marcus Gamboa MD LAB BLOOD ORDERABLE S Final Result Performing Organization Address City/[facility] Co de Phone Number [facility] Department [place] [address] * (ABNORMAL) Basic metabolic panel (07/06/2023 10:04 PM ROLLER SHOP UTILITY WORKER) [facility] Sodium 140 135 - 145 mmol/L [facility] Potassium, pl 3.2(L) 3.3 - 4.9 mmol/L [facility] Chloride 102 97 - 110 mmol/L [facility] CO2 27 22 - 32 mmol/L [facility] Anion gap 11 2 - 15 mmol/L [facility] BUN 9 6 - 25 mg/dL [facility] Creatinine 0.80 0.80 - 1.30 mg/dL [facility] Glucose 106 70 - 199 mg/dL [facility] Comment: Interpretive Data Fasting [...] JAIRON ERWIN Blood 07/06/2023 10:0 4 PM ROLLER SHOP UTILITY WORKER 07/06/2023 10:58 PM ROLLER SHOP UTILITY WORKER us Marcus Gamboa MD LAB BLOOD ORDERABLE S Final Result [facility] [place] [address] * CT Abdomen Pelvis W Contrast (07/06/2023 7:43 AM ROLLER SHOP UTILITY WORKER) Anatomical Region Laterality Modality Body N/A Computed Tomogra phy 07/06/2023 8:32 AM ROLLER SHOP UTILITY WORKER Impressions 07/06/2023 8:34 AM ROLLER SHOP UTILITY WORKER 1. Thoracoabdominal aortic dissection with endovascular stent [...] Katy Llamas M.D. Narrative 07/06/2023 8:34 AM ROLLER SHOP UTILITY WORKER EXAMINATION: ??Computed tomography of the abdomen and [...] by: Katy Llamas M.D. us Gisele Courtney CEILING INSULATION BLOWER IMG CT PROCEDURES Final Result * (ABNORMAL) CBC without differential (07/06/2023 5:26 AM ROLLER SHOP UTILITY WORKER) [facility] WBC 15.7(H) 3.8 - 9.9 K/cumm [facility] Hgb 7.9(L) 13.0 - 17.5 g/dL [facility] Hct 23.9(L) 38.9 - 50.3 % [facility] Plt 327 150 - 400 K/cumm [facility] MPV 9.1 9.1 - 12.3 fL [facility] RBC 2.75(L) 4.30 - 5.80 M/cumm [facility] MCV 86.9 81.3 - 96.4 fL [facility] MCH 28.7 27.1 - 33.3 pg [facility] MCHC 33.1 32.3 - 35.7 g/dL [facility] RDW CV 13.9 11.1 - 14.9 % [facility] RDW SD 43.9 35.7 - 48.1 fL [facility] NRBC abs 0.00 0.00 - 0.01 K/cumm [facility] Blood 07/06/2023 5:26 AM ROLLER SHOP UTILITY WORKER 07/06/2023 5:44 AM ROLLER SHOP UTILITY WORKER Marcus Gamboa MD LAB BLOOD ORDERABLE S Final Result Performing Organization Address City/State/[facility] Co de Phone Number [facility] Department [place] [address] * eGFR (07/05/2023 9:14 PM ROLLER SHOP UTILITY WORKER) [facility] eGFR 67 >=60 mL/min/1. 73 m2 [facility] Comment: Interpretive Data Reference Interval [...] last reviewed 2021. Blood 07/05/2023 9:14 PM ROLLER SHOP UTILITY WORKER 07/05/2023 10:22 PM ROLLER SHOP UTILITY WORKER aMrcus Gamboa MD LAB BLOOD ORDERABLE S Final Result Performing Organization Address [facility] Co de Phone Number [facility] [place] [address] * Lactate (07/05/2023 9:14 PM ROLLER SHOP UTILITY WORKER) Lactate 0.7 0.7 - 2.0 mmol/L [facility] Blood 07/05/2023 9:14 PM ROLLER SHOP UTILITY WORKER 07/05/2023 10:22 PM ROLLER SHOP UTILITY WORKER Marcus Gamboa MD LAB BLOOD ORDERABLE S Final Result Performing Organization Address [facility] de Phone Number [facility] Department [place] [address] * (ABNORMAL) Basic metabolic panel (07/05/2023 9:14 PM ROLLER SHOP UTILITY WORKER) Sodium 140 135 - 145 mmol/L [facility] Potassium, pl 3.6 3.3 - 4.9 mmol/L [facility] Chloride 104 97 - 110 mmol/L [facility] CO2 25 22 - 32 mmol/L [facility] Anion gap 11 2 - 15 mmol/L [facility] BUN 17 6 - 25 mg/dL [facility] Creatinine 1.43(H) 0.80 - 1.30 mg/dL [facility] Glucose 102 70 - 199 mg/dL [facility] Comment: Interpretive Data Fasting [...] 2022. Calcium 8.7 8.5 - 10.3 mg/dL [facility] Blood 07/05/2023 9:14 PM ROLLER SHOP UTILITY WORKER 07/05/2023 10:22 PM ROLLER SHOP UTILITY WORKER Marcus Gamboa MD LAB BLOOD ORDERABLE S Final Result [facility] [place] [address] * (ABNORMAL) CBC without differential (07/05/2023 9:14 PM ROLLER SHOP UTILITY WORKER) [facility] WBC 19.6(H) 3.8 - 9.9 K/cumm [facility] Hgb 7.8(L) 13.0 - 17.5 g/dL [facility] Hct 24.9(L) 38.9 - 50.3 % [facility] Plt 351 150 - 400 K/cumm [facility] MPV 9.7 9.1 - 12.3 fL [facility] RBC 2.85(L) 4.30 - 5.80 M/cumm [facility] MCV 87.4 81.3 - 96.4 fL [facility] MCH 27.4 27.1 - 33.3 pg [facility] MCHC 31.3(L) 32.3 - 35.7 g/dL [facility] RDW CV 13.9 11.1 - 14.9 % [facility] RDW SD 44.2 35.7 - 48.1 fL [facility] NRBC abs 0.00 0.00 - 0.01 K/cumm [facility] Blood 07/05/2023 9:14 PM ROLLER SHOP UTILITY WORKER 07/05/2023 10:22 PM ROLLER SHOP UTILITY WORKER Marcus Gamboa MD LAB BLOOD ORDERABLE S Final Result [facility] [place] [address] * XR Chest 1 View (07/05/2023 1:44 PM ROLLER SHOP UTILITY WORKER) Anatomical Region Laterality Modality Body, Chest N/A Computed Radiogr aphy 07/05/2023 3:06 PM ROLLER SHOP UTILITY WORKER Impressions 07/05/2023 3:34 PM ROLLER SHOP UTILITY WORKER Comparison 07/04/2023 Thoracic aortic and left subclavian [...] James Alvarado M.D. Narrative 07/05/2023 3:34 PM ROLLER SHOP UTILITY WORKER EXAMINATION: 1 view chest radiograph Procedure [...] agrees with it. Electronically signed by: James Alvraado M.D. Gisele Courtney NP IMG XR PROCEDURES Final Result * XR Abdomen Ap 1 Vw (07/05/2023 1:44 PM ROLLER SHOP UTILITY WORKER) Anatomical Region Laterality Modality Body, Abdomen N/A Computed Radiogr aphy 07/05/2023 2:51 PM ROLLER SHOP UTILITY WORKER Impressions 07/05/2023 2:54 PM ROLLER SHOP UTILITY WORKER A single view of the abdomen is [...] Otoniel Mccain M.D. Narrative 07/05/2023 2:54 PM ROLLER SHOP UTILITY WORKER EXAMINATION: Abdomen, one view. HISTORY: 33-year-old male [...] * Blood culture Blood (07/05/2023 1:09 PM ROLLER SHOP UTILITY WORKER) Report Final Report: No growth JAIRON ERWIN Blood 07/05/2023 1:09 PM ROLLER SHOP UTILITY WORKER 07/05/2023 2:17 PM ROLLER SHOP UTILITY WORKER Yulisa COLON - 07/09/2023 4:00 PM ROLLER SHOP UTILITY WORKER From a different site than #1. Collection->Peripheral [...] organism identification may be performed using the [employer] Gram-Positive Blood Culture Assay. This assay detects microbial DNA in positive blood culture broth via hybridization of target DNA to capture oligonucleotides on a microarray. This assay has been cleared by the [place] Food and Drug Administration and its performance characteristics have been verified by the [facility] Microbiology Laboratory. 5. ?For questions about this culture, contact the Microbiology Laboratory at [phone]. Interpretive data was last revised on 2019. us Gisele Courtney NP LAB MICROBIOLOGY - GENERAL ORD ERABLES Final Result JAIRON ERWIN [facility] Department [place] [address] * Blood culture Blood (07/05/2023 1:09 PM ROLLER SHOP UTILITY WORKER) Report Final Report: No growth JAIRON [facility] Blood 07/05/2023 1:09 PM ROLLER SHOP UTILITY WORKER 07/05/2023 2:17 PM ROLLER SHOP UTILITY WORKER [facility]ative [facility] - 07/09/2023 4:00 PM ROLLER SHOP UTILITY WORKER Collection->Peripheral 1. ?Blood cultures are incubated for [...] organism identification may be performed using the [employer] Gram-Positive Blood Culture Assay. This assay detects microbial DNA in positive blood culture broth via hybridization of target DNA to capture oligonucleotides on a microarray. This assay has been cleared by the [place] Food and Drug Administration and its performance characteristics have been verified by the [facility] Microbiology Laboratory. 5. ?For questions about this culture, contact the Microbiology Laboratory at [phone]. Interpretive data was last revised on 2019. Gisele Courtney NP LAB MICROBIOLOGY - GENERAL ORD ERABLES Final Result [facility] Department [place] [address] * Lactate (07/05/2023 1:09 PM ROLLER SHOP UTILITY WORKER) [facility] Lactate 1.7 0.7 - 2.0 mmol/L [facility] Blood 07/05/2023 1:09 PM [employer] 07/05/2023 1:48 PM [employer] Gisele M. Roz CEILING INS[employer]ATION BLOWER LAB BLOOD ORDERABLES Final Res ult Performing Organization Address [facility] de Phone Number [facility] [place] [address] * (ABNORMAL) CBC without differential (07/05/2023 1:09 PM [employer] WORK[employer]) WBC 15.3(H) 3.8 - 9.9 K/cumm [facility] Hgb 9.0(L) 13.0 - 17.5 g/dL [facility] Hct 28.1(L) 38.9 - 50.3 % [facility] Plt 359 150 - 400 K/cumm [facility] MPV 9.4 9.1 - 12.3 fL [facility] RBC 3.21(L) 4.30 - 5.80 M/cumm [facility] MCV 87.5 81.3 - 96.4 fL [facility] MCH 28.0 27.1 - 33.3 pg [facility] MCHC 32.0(L) 32.3 - 35.7 g/dL [facility] RDW CV 13.5 11.1 - 14.9 % [facility] RDW SD 43.2 35.7 - 48.1 fL [facility] NRBC abs 0.00 0.00 - 0.01 K/cumm [facility] Blood 07/05/2023 1:09 PM [employer] 07/05/2023 1:48 PM [employer] WORK[employer] Gisele Courtney [employer]ILING INSULATION BLOWER LAB BLOOD ORDERABLES Final Res ult Performing Organization Address [facility] Co de Phone Number [facility] [place] [address] * Urine culture Urine, clean voided (07/05/2023 1:09 PM [employer]) Report Final Report: No growth [facility] Urine, clean voided 07/05/2023 1:09 PM [employer] 07/05/2023 2:10 PM [employer] WORKER Narrative [facility] - 07/06/2023 4:05 PM [employer] WORKER Indications for Culture:->Urology patient Testing performed by [facility] Microbiology Laboratory ([phone]) us Gisele Courtney [employer] LAB MICROBIOLOGY - GENERAL ORD ERABLES Final Result Performing Organization Address [facility] Co de Phone Number [facility] [place] [address] * [place] Fluoroscopy < 1 Hour (07/04/2023 8:16 PM [employer] WORK[employer]) Narrative RAD_PACS_[facility] - 07/04/2023 8:17 PM [employer] WORKER The images from this study are not interpreted by Radiology. ??Please refer to the physician's procedure / OR operative note. us Nagi Landa MD IMG FLUOROSCOPY PROCED URES Final Result Performing Organization Address [facility] Co de Phone Number [facility] * Surgical pathology (07/04/2023 7:34 PM [employer] WORK[employer]) Tissue (Calculus/calculi /stone, gross and Chemical Analysis) 07/04/2023 7:34 PM [employer] WORKER Narrative PATHOLOGY [facility] - 07/06/2023 12:25 PM [employer] WORKER EPIC results best viewed via link to PDF [facility] Karolina Thao Laboratory [place] [address] Note to Patients: This report may contain [...] Gender: ??M : ??1990 (Age: 33) Address: ??[address] [place] [address] [place] ??[address] Hospital #: ??[id number] Taken:07/04/2023 Received:07/05/2023 Reported: 07/06/2023 Patient Type: [facility] Inpatient ?? Service: Urology Location: [place] [address] Physician(s): ??MD Carl Multani M.D. Diagnosis: Left [...] 0.7 x 0.3 cm aggregate of irregular [id number] calculi/fragments admixed with scant hemorrhagic material. ??The calculi are submitted for chemical analysis. ??Jar 1 (hemorrhagic material). ? PA(s): Kam Chang MS, PA ([facility])CM By this signature, I attest that [...] Surgical Pathology and Flow Cytometry Departments at [facility] as part of an ongoing quality supervisor program and in compliance with federally mandated [...] Surgical Pathology and Flow Cytometry Departments of [facility]. ??It has not been cleared or approved by the U. S. Food and Drug Administration. IMAGES AND SCANNED DOCUMENTS, IF INCLUDED, ONLY VIEWABLE IN PDF VERSION OF REPORT Marcus Gamboa MD LAB PATHOLOGY ORDER CAROLINE Final Result PATHOLOGY [facility] 3rd Floor [place], [place] [phone] * Troponin I high-sensitivity 2-hour (07/04/2023 2:19 PM [employer] WORK[employer]) Trop I hs <4 <=35 ng/L JAIRON [facility] Comment: Interpretive Data For further hscTnI resources including the diagnostic algorithm and an aid in interpretation, copy and paste this link: https://bjhlab.testcatalog.org/show/hsTrop-[email or web address] Current Interpretive Data last revised 2019. Trop I hs delta 0 ng/L [facility] Trop I hs interp Insignificant [facility] Blood 07/04/2023 2:19 PM [employer] WORKER 07/04/2023 2:40 PM [employer]ER Guille Navarro MD LAB BLOOD ORDERABLES Fin al Result [facility] One [facility] Department [place] [address] * CTA Chest Abdomen Pelvis (07/04/2023 2:06 PM [employer] WORKER) Anatomical Region Laterality Modality Body N/A Computed Tomogra phy 07/04/2023 2:48 PM [employer] WORKER Addenda Addendum by Katy Llamas MD on 07/05/2023 9:15 AM [employer] WORK[employer] Addendum: Aortic measurements to add to findings: Maximum descending thoracic aorta: 52 x 47 mm, previously 49 x 45 mm Dictated by: Nigel Dooley M.D. The radiology attending physician has personally reviewed this study, and had reviewed and/or edited this written report and agrees with it. Electronically signed by: Katy Llamas M.D. Impressions 07/04/2023 2:55 PM [employer] WORK[employer] 1. Redemonstrated thoracoabdominal aortic dissection managed with [...] Katy Llamas M.D. Narrative 07/04/2023 2:55 PM [employer] WORKER EXAMINATION: ??CT ANGIOGRAPHY OF THE CHEST, [...] (ABNORMAL) Urinalysis, microscopic only (07/04/2023 1:08 PM [employer] WORKER) WBC, ur 0-5 0 - 5 /HPF [facility] RBC, ur >50(A) 0 - 2 /HPF CERNER [facility] Epithelial cells, squamous, ur 1-5 0 - 5 /HPF [facility] Bacteria, ur 1+(A) [facility] Mucous, ur Present(A) CERNER [facility] Urine 07/04/2023 1:08 PM [employer] WORKER 07/04/2023 1:14 PM [employer] WORKER Nagi Landa MD LAB URINE ORDERABLES F inal Result [facility] One [facility] [place] [address] * (ABNORMAL) Urinalysis reflex to microscopic (07/04/2023 1:08 PM [employer] WORKER) Color, ur Tessa Yellow [facility] Clarity, ur Cloudy(A) Clear [facility] Specific gravity, ur 1.020 1.003 - 1.[address] [facility] pH, urine 5.5 [facility] Comment: Interpretive Data ? Urine pH is affected by diet, medications, systemic acid-base disturbances, and renal tubular function. ??pH may affect urinary stone formation. ??For example, urine pH below 6.0 may help reduce the tendency for calcium phosphate stones and pH greater than 6.0 may reduce the tendency for uric acid stone formation. Source: [employer] Current Interpretive Data was last revised on 2017 Protein, ur ql 1+(A) Negative [facility] Glucose, ur ql Negative Negative [facility] Ketones, ur Negative Negative [facility] Bilirubin, ur Negative Negative [facility] Blood, ur 3+(A) Negative [facility] Urobilinogen, ur <2.0 <2.0 mg/dL CERN[facility] Nitrite, ur Negative Negative [facility] Leukocyte esterase, ur Negative Negative [facility] UA reflex comment Reflex to microscopic UA will be performed. [facility] Urine 07/04/2023 1:08 PM [employer] WORKER 07/04/2023 1:14 PM [employer] WORKER us Nagi Landa MD LAB URINE ORDERABLES F inal Result [facility] One [facility] [place] [address] * XR Chest 1 Vw Portable (07/04/2023 12:46 PM [employer] WORKER) Anatomical Region Laterality Modality Body, Chest N/A Computed Radiogr aphy 07/04/2023 12:5 1 PM [employer] WORKER Impressions 07/04/2023 12:51 PM [employer] WORKER Comparison 06/16/2023 Thoracic endovascular stent grafting redemonstrated No new focal consolidation, pneumothorax, or pleural effusion. Stable cardiomediastinal silhouette. Electronically signed by: Shahrzad Zimmerman M.D. Narrative 07/04/2023 12:51 PM [employer] WORKER EXAMINATION: 1 view chest radiograph Procedure Note Shahrzad Zimmerman MD - 07/04/2023 EXAMINATION: 1 view chest radiograph IMPRESSION: Comparison 06/16/2023 Thoracic endovascular stent grafting redemonstrated No new focal consolidation, pneumothorax, or pleural effusion. Stable cardiomediastinal silhouette. Electronically signed by: Shahrzad Zimmerman M.D. us Jonathan Borja MD IMG XR PROCED URES Final Result * Creatine kinase (CK), total (07/04/2023 12:23 PM [employer] WORK[employer]) CK 55 40 - 300 Units/L [facility] Blood 07/04/2023 12:2 3 PM [employer] WORKER 07/04/2023 12:36 PM [employer] WORKER us Nagi Landa MD LAB BLOOD ORDERABLES F inal Result Performing Organization Address [facility] Co de Phone Number [facility] One [facility] [place] [address] * eGFR (07/04/2023 12:23 PM [employer] WORKER) eGFR 73 >=60 mL/min/1. 73 m2 [facility] Comment: Interpretive Data Reference Interval [...] reviewed 2021. Blood 07/04/2023 12:2 3 PM [employer] WORKER 07/04/2023 12:36 PM [employer] WORKER Guille Navarro MD LAB BLOOD ORDERABLES Fin al Result Performing Organization Address City/[facility] Co de Phone Number JAIRON ERWIN One [facility] Department [place] [address] * (ABNORMAL) Differential, auto (07/04/2023 12:23 PM [employer] WORKER) Neutrophil abs 8.5(H) 1.5 - 6.5 K/cumm [facility] Imm gran abs 0.1 0.0 - 0.1 K/cumm [facility] Lymphocyte abs 1.2 0.8 - 3.3 K/cumm [facility] Monocyte abs 1.0(H) 0.2 - 0.8 K/cumm [facility] Eosinophil abs 0.1 0.0 - 0.5 K/cumm [facility] Basophil abs 0.1 0.0 - 0.1 K/cumm [facility] Neutrophil pct 78.0 % [facility] Comment: Interpretive Data Percent cell count reference ranges are not reported, since discordance with absolute values may lead to misinterpretation of CBC data. Current Interpretive Data was last revised on 2017. Imm gran pct 0.9 % [facility] Comment: Interpretive Data Percent cell count reference ranges are not reported, since discordance with absolute values may lead to misinterpretation of CBC data. Current Interpretive Data was last revised on 2017. Lymphocyte pct 10.9 % [facility] Comment: Interpretive Data Percent cell count reference ranges are not reported, since discordance with absolute values may lead to misinterpretation of CBC data. Current Interpretive Data was last revised on 2017. Monocyte pct 8.7 % [facility] Comment: Interpretive Data Percent cell count reference ranges are not reported, since discordance with absolute values may lead to misinterpretation of CBC data. Current Interpretive Data was last revised on 2017. Eosinophil pct 0.9 % [facility] Comment: Interpretive Data Percent cell count reference ranges are not reported, since discordance with absolute values may lead to misinterpretation of CBC data. Current Interpretive Data was last revised on 2017. Basophil pct 0.6 % [facility] Comment: Interpretive Data Percent cell count reference ranges are not reported, since discordance with absolute values may lead to misinterpretation of CBC data. Current Interpretive Data was last revised on 2017. Blood 07/04/2023 12:2 3 PM [employer] WORKER 07/04/2023 12:36 PM [employer] WORKER Guille Navarro MD LAB BLOOD ORDERABLES Fin al Result Performing Organization Address [facility] de Phone Number [facility] [place] [address] * Lactate (07/04/2023 12:23 PM [employer] WORKER) Lactate 0.8 0.7 - 2.0 mmol/L [facility] Blood 07/04/2023 12:2 3 PM [employer] WORKER 07/04/2023 12:36 PM [employer] WORKER Result [facility] Jonathan Borja MD LAB BLOOD ORD ERABLES Final Result Performing Organization Address [facility] [place] [address] * Troponin I high-sensitivity series (baseline, 2hr, 4hr, 6hr) (07/04/2023 12:23 PM [employer] WORKER) Trop I hs <4 <=35 ng/L [facility] Comment: Interpretive Data For further [facility] resources including the diagnostic algorithm and an aid in interpretation, copy and paste this link: https://bjhlab.testcatalog.org/show/[email or web address] Current Interpretive Data last revised 2019. Blood 07/04/2023 12:2 3 PM [employer] WORKER 07/04/2023 12:36 PM [employer] WORKER Result [facility] Nagi Landa MD LAB BLOOD ORDERABLES F inal Result Performing Organization Address [facility] Co de Phone Number [facility] [place] [address] * Lipase (07/04/2023 12:23 PM [employer] WORKER) Lipase 13 10 - 99 Units/L [facility] Blood (Blood, Venous) 07/04/2023 12:23 PM [employer] WORKER 07/04/2023 12:36 PM [employer] WORKER Nagi Landa MD LAB BLOOD ORDERABLES F inal Result [facility] One [facility] [place] [address] * (ABNORMAL) Comprehensive metabolic panel (07/04/2023 12:23 PM [employer] WORKER) Pathologist [facility] Sodium 137 135 - 145 mmol/L [facility] Potassium, pl 4.2 3.3 - 4.9 mmol/L [facility] Chloride 101 97 - 110 mmol/L [facility] CO2 23 22 - 32 mmol/L [facility] Anion gap 13 2 - 15 mmol/L [facility] BUN 18 6 - 25 mg/dL [facility] Creatinine 1.33(H) 0.80 - 1.30 mg/dL [facility] Glucose 98 70 - 199 mg/dL [facility] Comment: Interpretive Data Fasting [...] 2022. Calcium 10.1 8.5 - 10.3 mg/dL [facility] Bilirubin, total 0.3 0.1 - 1.2 mg/dL [facility] Protein, pl 9.8(H) 6.5 - 8.5 g/dL [facility] Albumin 4.1 3.5 - 5.0 g/dL [facility] Alk phos 105 40 - 130 Units/L [facility] ALT 13 7 - 55 Units/L [facility] AST 13 10 - 50 Units/L [facility] Blood 07/04/2023 12:2 3 PM [employer] WORKER 07/04/2023 12:36 PM [employer] WORKER Nagi Landa MD LAB BLOOD ORDERABLES F inal Result Performing Organization Address [facility] Co de Phone Number [facility] [place] [address] * (ABNORMAL) CBC with auto differential (07/04/2023 12:23 PM [employer] WORKER) [facility] WBC 10.9(H) 3.8 - 9.9 K/cumm [facility] Hgb 9.7(L) 13.0 - 17.5 g/dL [facility] Hct 31.1(L) 38.9 - 50.3 % [facility] Plt 437(H) 150 - 400 K/cumm [facility] MPV 9.2 9.1 - 12.3 fL [facility] RBC 3.52(L) 4.30 - 5.80 M/cumm [facility] MCV 88.4 81.3 - 96.4 fL [facility] MCH 27.6 27.1 - 33.3 pg [facility] MCHC 31.2(L) 32.3 - 35.7 g/dL [facility] RDW CV 13.7 11.1 - 14.9 % [facility] RDW SD 44.0 35.7 - 48.1 fL [facility] NRBC abs 0.00 0.00 - 0.01 K/cumm [facility] Blood (Blood, Venous) 07/04/2023 12:23 PM [employer] WORKER 07/04/2023 12:36 PM [employer] WORKER Nagi Landa MD LAB BLOOD ORDERABLES F inal Result Performing Organization Address [facility]/ZIP Co de Phone Number [facility] [place] [address] * ECG 12-LEAD (07/04/2023 11:53 AM [employer] WORKER) Narrative [facility] - 07/04/2023 11:53 AM [employer] WORKER Rosey Posada MD ? 07/04/2023 11:55 AM [...] in the ED Rosey Posada MD 07/04/23 4901 us Nagi Landa MD ECG ORDERABLES Final Result [facility] documented in this encounter Visit [...] 2147, Indications: PainIndications:Pain Given 07/05/2023 2:10 PM [employer] WORKER 1,000 mg Given 07/05/2023 4:11 AM [employer] WORKER 1,000 mg Given 07/04/2023 11:47 PM [employer] 1,000 mg acetaminophen (TYLENOL) tablet 1,000 mg 1,000 mg, oral, Every 6 hours scheduled, First dose (after last modification) on Tue07/05/23 at 1800, Indications: PainIndications:Pain Given 07/08/2023 12:12 PM [employer] WORKER 1,000 mg Given 07/08/2023 5:38 AM [employer] WORKER 1,000 mg Given 07/08/2023 12:10 AM [employer] WORKER 1,000 mg albuterol HFA (PROVENTIL HFA,VENTOLIN HFA,PROAIR HFA) 90 mcg/actuation inhaler 2 puff 2 puff, inhalation, Every 4 hours PRN (respite provider), wheezing, Starting on Tue07/04/23 at 2150 amLODIPine (NORVASC) tablet 10 mg 10 mg, oral, Daily, First dose on Tue07/05/23 at 0900 Given 07/08/2023 8:20 AM [employer] WORKER 10 mg Given 07/07/2023 8:47 AM [employer] WORKER 10 mg Given 07/06/2023 8:37 AM [employer] WORKER 10 mg aspirin chewable tablet 81 mg 81 mg, oral, Daily, First dose on Tue07/05/23 at 0900 Given 07/08/2023 8:20 AM [employer] WORKER 81 mg Given 07/07/2023 8:46 AM [employer] WORKER 81 mg Given 07/06/2023 8:38 AM [employer] WORKER 81 mg calcium carbonate (TUMS) chewable tablet 500 mg 500 mg (200 mg of elemental calcium), oral, 3 times daily PRN, indigestion, heartburn, Starting on Tue07/05/23 at 0558 carvediloL (COREG) tablet 25 mg 25 mg, oral, 2 times daily with meals (bkfst, dinner), First dose on Tue07/05/23 at 0800 Given 07/08/2023 8:19 AM [employer] WORKER 25 mg Given 07/07/2023 5:20 PM [employer] WORKER 25 mg Given 07/07/2023 8:46 AM [employer] WORKER 25 mg cefepime (MAXIPIME) 1,000 mg/10 mL in sterile water (premix) 1,000 mg 1,000 mg, intravenous, at 120 mL/hr, Administer over 5 Minutes, Every 12 hours scheduled, First dose on Tue07/05/23 at 1315, Indications: Urinary Tract/Genitourinary InfectionIndications:Urinary Tract/Genitourinary Infection New Bag 07/08/2023 12:11 PM [employer]ER 1,000 mg 120 mL/hr New Bag 07/08/2023 12:10 AM [employer] WORKER 1,000 mg 120 mL/hr New Bag 07/07/2023 12:46 PM [employer] WORKER 1,000 mg 120 mL/hr diazePAM (VALIUM) injection 2.5 mg 2.5 mg, intravenous, Administer over 1 Minutes, Once PRN Procedure, anxiety, Starting on Tue07/06/23 at 0705, For 1 dose Given 07/06/2023 7:16 AM [employer] WORKER 2.5 mg enoxaparin (LOVENOX) syringe 40 mg 40 mg, subcutaneous, Daily (for enoxaparin), First dose on Tue07/05/23 at 2100, Indications: Deep Vein Thrombosis PreventionIndications:Deep Vein Thrombosis Prevention Given 07/07/2023 9:20 PM [employer] WORKER 40 mg Left Lower Abdomen Given 07/06/2023 8:15 PM [employer] WORKER 40 mg Le ft Upper Arm Given 07/05/2023 9:26 PM [employer] WORKER 40 mg Le ft Lower Abdomen fentaNYL (SUBLIMAZE) preservative free injection 100 mcg 100 mcg, intravenous, Once, On Tue07/04/23 at 1213, For 1 dose Given 07/04/2023 12:17 PM [employer] WORKER 100 mcg Right Antecubital gabapentin (NEURONTIN) capsule 300 mg 300 mg, oral, 3 times daily, First dose on Tue07/04/23 at 2230 Given 07/08/2023 8:19 AM [employer] WORKER 300 mg Given 07/07/2023 9:23 PM [employer] WORKER 300 mg Given 07/07/2023 5:13 PM [employer] WORKER 300 mg hydrALAZINE (APRESOLINE) tablet 50 mg 50 mg, oral, 3 times daily, First dose on Tue07/04/23 at 2300, Indications: hypertensionIndications:hypertension Given 07/08/2023 8:37 AM [employer] WORKER 50 mg Given 07/07/2023 9:24 PM [employer] WORKER 50 mg Given 07/07/2023 5:19 PM [employer] WORKER 50 mg HYDROmorphone (DILAUDID) injection 0.2 mg 0.2 mg, intravenous, Administer over 2 Minutes, Once, On Tue07/05/23 at 0700, For 1 dose Given 07/05/2023 6:24 AM [employer] WORKER 0.2 mg HYDROmorphone (DILAUDID) injection 0.2 mg 0.2 mg, intravenous, Administer over 2 Minutes, Every 4 hours PRN, 2nd line for pain, Starting on Tue07/06/23 at 0647 Given 07/06/2023 7:02 AM [employer] WORKER 0.2 mg HYDROmorphone (DILAUDID) injection 0.5 mg 0.5 mg, intravenous, Administer over 2 Minutes, Every 10 min PRN, 1st line for pain, Starting on Tue07/04/23 at 2026, Phase I, Notify Anesthesiologist if total PACU dose reaches 2 mg and pain score 5/10 or more., Indications: PainIndications:Pain Given 07/04/2023 9:17 PM [employer] WORKER 0.5 mg Given 07/04/2023 8:54 PM [employer] WORKER 0.5 mg Given 07/04/2023 8:42 PM [employer] WORKER 0.5 mg HYDROmorphone (DILAUDID) injection 0.5 mg 0.5 mg, intravenous, Administer over 2 Minutes, Every 2 hours PRN, 2nd line for pain, breakthrough pain, Starting on Tue07/06/23 at 0715 Given 07/08/2023 8:19 AM [employer] WORKER 0.5 mg Given 07/08/2023 4:14 AM [employer] WORKER 0.5 mg Given 07/07/2023 9:17 PM [employer] WORKER 0.5 mg HYDROmorphone (DILAUDID) injection 1 mg 1 mg, intravenous, Administer over 2 Minutes, Every 2 hours PRN, 1st line for pain, Starting on Tue07/04/23 at 1214 Given 07/04/2023 3:32 PM [employer] WORKER 1 mg Right Antecubital Given 07/04/2023 1:04 PM [employer] WORKER 1 mg Ri ght Antecubital HYDROmorphone (DILAUDID) injection 1 mg 1 mg, intravenous, Administer over 2 Minutes, Once, On Tue07/04/23 at 1915, For 1 dose, Pre-Op Given 07/04/2023 6:54 PM [employer] 1 mg hyoscyamine (LEVSIN) injection 0.25 mg 0.25 mg, intravenous, Administer over 1 Minutes, Every 6 hours PRN, bladder spasms, Starting on Tue07/06/23 at 1125 Given 07/07/2023 10:10 AM [employer] WORKER 0.25 mg hyoscyamine (LEVSIN) injection 0.25 mg 0.25 mg, intravenous, Administer over 1 Minutes, Every 6 hours scheduled, First dose (after last modification) on Catarina 07/07/23 at 1800 Given 07/08/2023 5:39 AM [employer] WORKER 0.25 mg Given 07/08/2023 12:10 AM [employer] WORKER 0.25 mg Given 07/07/2023 5:13 PM [employer] WORKER 0.25 mg hyoscyamine (LEVSIN) sublingual tablet 125 mcg 125 mcg, sublingual, Every 6 hours, First dose on Tue07/08/23 at 1130, Indications: Urinary IncontinenceIndications:Urinary Incontinence Given 07/08/2023 12:34 PM [employer] 125 mcg ioversoL (OPTIRAY 350) injection 100 mL 100 mL, intravenous, Once in imaging, contrast, Starting on Tue07/06/23 at 0738, For 1 dose Contrast Given 07/06/2023 7:44 AM [employer] 75 mL ioversoL (OPTIRAY 350) syringe 100 mL 100 mL, intravenous, Once in imaging, contrast, Starting on Tue07/04/23 at 1407, For 1 dose Contrast Given 07/04/2023 2:07 PM [employer] 90 mL ketorolac (TORADOL) 15 mg/mL injection 15 mg 15 mg, intravenous, Every 6 hours scheduled, First dose on Catarina 07/07/23 at 1200, For 6 doses Given 07/08/2023 12:11 PM [employer] 15 mg Given 07/08/2023 5:39 AM [employer] 15 mg Given 07/08/2023 12:10 AM [employer] 15 mg Lactated Ringer's (LR) infusion 125 mL/hr, intravenous, Continuous, Starting on Tue07/04/23 at 2100, Phase I & Post-op Floor New Bag 07/08/2023 5:39 AM [employer] 125 mL/hr 125 mL/hr New Bag 07/07/2023 9:18 PM [employer] 125 mL/hr 125 mL/hr New Bag 07/07/2023 8:56 AM [employer] 125 mL/hr 125 mL/hr methocarbamoL (ROBAXIN) tablet 750 mg 750 mg, oral, 3 times daily PRN, muscle spasms, Starting on Tue07/04/23 at 2147 Given 07/07/2023 2:44 PM [employer] 750 m g Given 07/06/2023 8:38 AM [employer] 750 mg Given 07/06/2023 12:29 AM [employer] 750 mg methocarbamoL (ROBAXIN) tablet 750 mg 750 mg, oral, 3 times daily, First dose (after last modification) on Catarina 07/07/23 at 2100 Given 07/08/2023 8:20 AM [employer] 750 mg Given 07/07/2023 9:20 PM [employer] 750 mg ondansetron (ZOFRAN) injection 4 mg 4 mg, intravenous, Administer over 2 Minutes, Once, On Tue07/04/23 at 1213, For 1 dose Given 07/04/2023 12:20 PM [employer] 4 mg Right Antecubital ondansetron (ZOFRAN) injection 4 mg 4 mg, intravenous, Administer over 2 Minutes, Every 6 hours PRN, nausea, vomiting, Starting on Tue07/05/23 at 0558 Given 07/05/2023 6:03 AM [employer] 4 mg ondansetron (ZOFRAN) injection 4 mg 4 mg, intravenous, Administer over 2 Minutes, Every 6 hours PRN, nausea, vomiting, 1 st line, Starting on Tue07/05/23 at 0954 Given 07/07/2023 10:18 AM [employer] 4 mg Given 07/07/2023 3:28 AM [employer] 4 mg Given 07/06/2023 8:30 PM [employer] 4 mg oxyBUTYnin (DITROPAN) tablet 5 mg 5 mg, oral, Every 6 hours PRN, bladder spasms, Starting on Tue07/04/23 at 2147, Indications: Bladder HyperactivityIndications:Bladder Hyperactivity Given 07/06/2023 8:37 AM [employer] 5 mg Given 07/05/2023 6:25 AM [employer] 5 mg Given 07/04/2023 11:47 PM [employer] 5 mg oxyBUTYnin XL (DITROPAN-XL) extended release tablet 10 mg 10 mg, oral, Daily, First dose on Tue07/06/23 at 1200, Do not crush, chew, cut, dissolve, open or otherwise manipulate tablet/capsule. Given 07/08/2023 8:20 AM [employer] 10 mg Given 07/07/2023 8:47 AM [employer] 10 mg Given 07/06/2023 12:06 PM [employer] 10 mg oxyCODONE (ROXICODONE) tablet 5 mg 5 mg, oral, Every 4 hours PRN, 2nd line for pain, Starting on Tue07/04/23 at 2147, May administer 1 hour after 1st line agent for uncontrolled or increasing pain. , Indications: PainIndications:Pain Given 07/06/2023 2:54 AM [employer] 5 mg Given 07/05/2023 10:47 PM [employer] 5 mg Given 07/05/2023 6:44 PM [employer] 5 mg oxyCODONE (ROXICODONE) tablet 5 mg 5 mg, oral, Every 4 hours PRN, 1st line for pain, Starting on Tue07/06/23 at 0648, May administer 1 hour after 1st line agent for uncontrolled or increasing pain. , Indications: PainIndications:Pain Given 07/08/2023 2:36 PM [employer] 5 mg Given 07/08/2023 9:59 AM [employer] 5 mg Given 07/07/2023 4:51 PM [employer] 5 mg phenazopyridine (PYRIDIUM) tablet 200 mg 200 mg, oral, 3 times daily with meals, First dose on Tue07/05/23 at 1200, May discolor urine and sclera. Can stain undergarments and contact lenses. Given 07/08/2023 12:12 PM [employer] 200 mg Given 07/08/2023 8:20 AM [employer] 200 mg Given 07/07/2023 5:13 PM [employer] 200 mg potassium chloride ER (KLOR-CON) extended [...] crushed or chewed. Given 07/07/2023 8:47 AM [employer] 30 mEq Given 07/07/2023 2:45 AM [employer] 30 mEq prochlorperazine (COMPAZINE) injection 5 mg 5 mg, intravenous, Administer over 2 Minutes, Once, On Tue07/05/23 at 1015, For 1 dose Given 07/05/2023 9:50 AM [employer] 5 mg prochlorperazine (COMPAZINE) injection 5 mg 5 mg, intravenous, Administer over 2 Minutes, Every 6 hours PRN, nausea, vomiting, 2nd line, Starting on Tue07/05/23 at 0955 Given 07/07/2023 6:34 AM [employer] 5 mg Given 07/07/2023 12:40 AM [employer] 5 mg Given 07/06/2023 8:37 AM [employer] 5 mg ramelteon (ROZEREM) tablet 8 mg 8 mg, oral, Nightly PRN, sleep, Starting on Tue07/05/23 at 0558, Indications: Sleep-Onset InsomniaIndications:Sleep-Onset Insomnia Given 07/07/2023 9:24 PM [employer] 8 m g senna-docusate (PERICOLACE) 8.6-50 mg per tablet 2 tablet 2 tablet, oral, 2 times daily, First dose on Tue07/04/23 at 2230 Given 07/08/2023 8:19 AM [employer] 2 tablets Given 07/07/2023 9:20 PM [employer] 2 tablets Given 07/07/2023 8:45 AM [employer] 2 tablets simethicone (MYLICON) chewable tablet 80 mg 80 mg, oral, 2 times daily PRN, flatulence, other, gas pain, Starting on Tue07/05/23 at 0558 Given 07/06/2023 8:37 AM [employer] 80 mg sodium chloride 0.9% 0.9% infusion - ADS Override Pull Starting on Tue07/04/23 at 1846, For 1 dose, Created by cabinet override sodium chloride 0.9% flush 0.5-20 mL 0.5-20 mL, intra-catheter, Every 8 hours scheduled, First dose on Tue07/04/23 at 2230, Flush volume based on line type and size. Given 07/08/2023 12:12 PM [employer] 1 0 mL Given 07/08/2023 5:39 AM [employer] 10 mL Given 07/07/2023 12:47 PM [employer] 10 mL sodium chloride 0.9% flush 0.5-20 mL 0.5-20 mL, intra-catheter, As needed, line care, Starting on Tue07/04/23 at 2147, Flush volume based on line type and size. Flush before and after each use. Given 07/07/2023 3:28 AM [employer] 10 mL Given 07/06/2023 10:38 AM [employer] 10 mL sodium chloride 0.9% infusion 30 mL/hr, intravenous, Continuous, Starting on Tue07/04/23 at 1915, Pre-Op Restarted 07/04/2023 8:01 PM [employer] Rate/Dose Verify 07/04/2023 7:08 PM [employer] 30 mL/h r New Bag 07/04/2023 6:54 PM [employer] 30 mL/hr 30 mL/hr tamsulosin (FLOMAX) extended release capsule 0.4 mg 0.4 mg, oral, Once, On Tue07/04/23 at 1458, For 1 dose, Do not crush, chew, cut, dissolve, open or otherwise manipulate tablet/capsule. Given 07/04/2023 3:35 PM [employer] 0.4 mg tamsulosin (FLOMAX) extended release capsule 0.4 mg 0.4 mg, oral, Daily with dinner, First dose on Tue07/05/23 at 1800, Do not crush, chew, cut, dissolve, open or otherwise manipulate tablet/capsule. Given 07/07/2023 5:12 PM [employer] 0.4 mg Given 07/06/2023 5:51 PM [employer] 0.4 mg Given 07/05/2023 6:44 PM [employer] 0.4 mg vancomycin 1500 mg/515 mL in sodium chloride 0.9% (premix) 1,500 mg 1,500 mg (rounded from 1,462.5 mg = 15 mg/kg ? 97.5 kg), intravenous, Administer over 90 Minutes, Every 12 hours, First dose on Tue07/05/23 at 1400, Indications: Urinary Tract/Genitourinary InfectionIndications:Urinary Tract/Genitourinary Infection New Bag 07/08/2023 2:11 AM [employer] 1,500 mg New Bag 07/07/2023 2:39 PM [employer] 1,500 mg New Bag 07/07/2023 2:45 AM [employer] 1,500 mg documented in this encounter [...] Recently Administered Medications Times are shown in [employer]. Scheduled Medication Order 07/06/2023 07/07/2023 07/08/2023 acetaminophen [...] Ventura RN)1400 (Due - Provider: Paris Garcia [facility]) Continuous Medication Order 07/06/2023 07/07/2023 07/08/2023 Lactated [...] 2 puff, inhalation, Every 4 hours PRN (respite provider), wheezing, Starting on Tue07/04/23 at 2150 calcium [...] Harriett Ordonez) 0328 (Given - Provider: Jacque Maciel, BRIA)1018 (Given - Provider: Alicia Good, BRIA) [...] Indications: Pain 0837 (Given - Provider: Sury Frankiln RN)1601 (Given - Provider: Sury Franklin RN)2014 [...] 07/04/2023 documented in this encounter Care Teams Cake Winder Relationship Specialty Start Date End Date Carl Strickland MD [address] [facility] [address] [place] [address] PCP - General Internal Medicine 06/06/23 Leo Manzano MD [id number] [place] [address] Surgeon Vascular Surgery 05/16/23 documented as of this encounter
--- OUTSIDE RECORDS SUMMARY | 2024-05-30 06:28 | XMS_ITS | Encounter Summary ---
Author Organization [facility] Address [address] [place] [address] Phone Care Team Providers Care Ski Patroller Name Role Phone Leo Manzano MD Unavailable [phone] Carl Strickland MD Primary Care Provider Reason for Visit * Reason Onset Date Comments Genetic testing Update 07/18/2023 Encounter Details Date Type Department Care Team (Late st Contact Info) Description 07/18/2023 Telephone [facility] Cardiology [address] [facility] [address] [place] [address] [place] [id number] Joaquín Abarca MD [address] [facility] [address] [place] [address] Genetic testing Update Social History [...] How often do you attend chur or episcopalian services? More than 4 times per year 07/06/2023 Do you belong to any clubs o r organizations such as pentecostal groups, unions, fraternal or athletic groups, or [...] on file Legal Sex Male 3:42 AM STEEL ANALYST Gender Identity Not on file Sexual Orientation Straight 06/12/2023 11 :43 PM STEEL ANALYST documented as of this encounter Miscellaneous Notes * Telephone Encounter - Mariah Case RN - 07/21/2023 8:36 AM CST See related task. Pt has genetic counseling session 08/10. L ANALYST * Telephone Encounter - Mariah Case RN - 07/18/2023 2:53 PM CST I spoke with mom. She reports pt does not have an appt with Gene Dynex to do genetic counseling. She states pt called her after I called and was confused about next steps. Mom is not certain if pt or [employer] portal, with instructions, but I provided number to MGT and she will check portal also. She will provide update on 07/20. L ANALYST * Telephone Encounter - Jolly Glass - 07/18/2023 2:18 PM CST PT MOM CALLED BACK REGARDING GENETIC TESTING, PLS CALL L ANALYST * Telephone Encounter - Mariah Case RN - 07/18/2023 2:09 PM CST I spoke with pt. He reports he has an upcoming genetic counseling session, but unable to confirm date at present. He has ov 07/[address] Abarca and will let us know at that time. L ANALYST * Telephone Encounter - Mariah Case RN - 07/18/2023 2:09 PM CST ----- Message from Mariah Case RN sent at 06/27/2023 11:27 AM STEEL ANALYST ----- Regarding: Genetic Testing #1--------has f/u 07/20, with Dr. Abarca L ANALYST documented in this encounter Plan of Treatment Not on file documented as of this encounter Visit Diagnoses Not on filedocumented in this encounter Care Teams Ski Patroller Relationship Specialty Start Date End Date Carl Strickland MD [address] [facility] [address] [place] [address] PCP - General Internal Medicine 06/06/23 Leo Manzano MD [id number] [place] [address] Surgeon Vascular Surgery 05/16/23 documented as of this encounter
--- OUTSIDE RECORDS SUMMARY | 2024-05-30 06:28 | XMS_ITS | Encounter Summary ---
Author Organization [facility] Healthcare Address [address] [place] [address] Care Team Providers Care Fleet Sales Associate Name Role Phone Leo Manzano MD Unavailable [phone] Carl Strickland MD Primary Care Provider Reason for Visit * Reason Comments Abdominal Pain Stomach and back dawna n * Auth/Cert (Routine) Specialty Diagnoses / Procedures Referred By Contac t Referred To Contact Diagnoses Back pain at L4-L5 level Procedures NA Referral ID Status Reason Start Date Expiration Date Visits Re quested Visits Authorized [id number] 1 1 Encounter Details Date Type Department Care Team (Late st Contact Info) Description 08/23/2023 8:14 AM CDT - 08/24/2023 6:11 PM CDT Emergency [address] [phone] Christine Gotti MD PhD [address] [facility] [address] [place] [address] Aman Arredondo MD [address] [place] [address] [address] [place] [address] Marianna Sam MD [address] [facility] [address] [place] [address] Hoda Ruiz MD [address] [place], [place] [id number] Norma Gross MD [address] [place], [place] [id number] Abdominal pain (Primary Dx); Low back pain [...] Recorded In the past 12 months has [employer], gas, oil, or water [employer] threatened to shut off services in your [...] How often do you attend chur or mosque services? More than 4 times per year [...] slept in a halfway (including now)? No 07/06/2023 Personal Safety Answer Date Recorded Have you ever been in or are you currently in a harmful physical or emotional relationship or is someone making you feel afraid or unsafe? Denies 07/26/2023 Sex and Gender Information Value Date Recorded Sex Assigned at Not on file Legal Sex Male 3:42 AM CHIEF DIGITAL MEDIA OFFICER Gender Identity Not on file Sexual Orientation Straight 06/12/2023 11 :43 PM CHIEF DIGITAL MEDIA OFFICER documented as of this encounter Last [...] Care Physician at Discharge: Carl Strickland MD [phone] Admission Date: 08/23/2023 Discharge Date: 08/24/2023 Admission Location: [facility] Problems/Diagnoses: Principal Problem: Chronic back pain Active [...] not think is providing much relief. Upon [facility] ED arrival his vital signs were notable [...] 9:30 AM Amanda Macias MD CAM PAIN [facility] CAM 10/07/2023 9:00 AM [facility] [id number] BJN US [facility] Main IMG 10/07/2023 10:00 AM Marcus Gamboa MD [facility] 11C [facility] 10/14/2023 10:20 AM Marcus Gamboa MD [facility] 11C [place] 11/23/2023 3:30 PM Joaquín Abarca MD CAR CAM 8B Cardiology 02/15/2024 1:00 PM Leo Manzano MD [facility] BW3 [address] [place] Contact Information for Follow-ups Carl Strickland MD Specialty: Internal Medicine [address] [place] [address] Next Steps: Follow up Cosigned by Norma Gross MD at 08/24/2023 6:25 PM CDT documented in this encounter Discharge Instructions * Attachments The following attachments cannot be sent through Care Everywhere. * Amitriptyline (By mouth) (Filipino) * Meloxicam (By mouth) (Filipino) documented in this encounter Medications at Time [...] Age: 33 y.o. male Admission: 08/23/2023 Bed: [id number] LOS: 0 days Subjective Chief complaint: back [...] 45 minutes which was spent performing a smlz-xz-odav encounter and personally completing the provider-level activities documented in the note. This includes time spent prior to the visit and after the visit in direct care of the patient. This time does not include time spent in any separately reportable services. Jennifer Lewis NP Cosigned by Norma Grsos MD at 08/24/2023 2:52 PM CDT Associated attestation - Norma Gross MD - 08/24/2023 2:52 PM CDT I have seen and examined the patient on 08/24/23 in conjunction with the non- physician provider. documented in this encounter H&P Notes * Hoda Ruiz MD - 08/23/2023 3:52 PM CDT History and Physical Division of [facility] Medicine Name: Eriberto Chau : 1990 Today's Date: August 23, 2023 Age: 33 y.o. male Admit Date: 08/23/2023 Bed: [facility] CC-[id number]/-[id number] LOS: 0 days Subjective Eriberto Chau [...] not think is providing much relief. Upon [facility] ED arrival his vital signs were notable [...] Question: ([facility]) Diet type Answer: Regular 08/23/23 8369 Objective Vitals: 24hr Min/Max: Temp Min: 97.7 [...] PGY-5 Chronic/Cancer Pain Service Department of Anesthesiology [facility], [facility] If you have questions or concerns, please contact the [facility] postage machine operator to page the Pain Management service. After hours, this is not an in-house pager, please reserve non-urgent calls from [phone]. We are happy to address emergent calls 20/12. 08/24/23 3:14 PM For patients or family members viewing this note through [employer] programs: This note was written as a [...] Vascular Surgery Consultation Patient Name/MRN: Eriberto Chau [id number] Reason for Consult: type B aortic dissection pw acute pain. Attending: Christine Gotti MD* Today's Date: 08/23/2023 Admitting Service: Emergency Admitting location: [facility] CC-01R/-[id number] Admit Date: 08/23/2023 Code Status: Prior [...] tablet 1,000 mg 1,000 mg oral Q6H [facility] Christine Gotti MD PhD esmolol in 0.9% [...] Vascular surgery will follow peripherally. Please call [phone] with vascular consult questions 20/12. The recommendations [...] back pain 06/24/2023 ??? 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 Infrarenal abdominal aortic aneurysm, without rupture (HCC) 06/13/2023 ??? Polysubstance abuse (CMS/HCC) (HCC) 06/10/2023 ??? Moderate malnutrition (CMS/HCC) (HCC) 06/09/2023 ??? Dissection of abdominal aorta (CMS/HCC) (HCC) 06/03/2023 ??? Urinary retention 05/16/2023 ??? Epistaxis 05/13/2023 ??? Pneumonia 05/13/2023 ??? HTN (hypertension) 05/13/2023 ??? 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 Dissection of aorta, [...] Psychiatric: Mood and Affect: Mood normal. MDM Zimqrlk-wknuyvoi-yymqdi summation: This is a 33 y.o. 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 Patient tachycardic, hypertensive, appeared uncomfortable in triage. Upon arrival to [facility], patient appears acutely ill, uncomfortable, with continued [...] quantitative ??? DO NOT UNCHECK - ED appeals and generalist clerk Standing Order: Abdominal Pain ??? Vital Signs [...] 5 mg (5 mg oral Given 08/23/23 1137) Attending Summary of Care ED Course as [...] with voice recognition software. Occasional wrong-word or 'twpuu-x-kgio' substitutions may have occurred due to the inherent limitations of voice recognition software. Read the chart carefully and recognize, using context, where substitutions have occurred. ?? @EDCOURSE@ Final diagnoses: None Type B dissection s/p endovascular repair By: Christine Gotti MD PhD Time: 08/22 0829 Comment: As with the patient in the [...] By: Christine Gotti MD PhD Time: 08/22 1336 Comment: Called the Pain Medicine Team (Anesthesia's)'s [...] with voice recognition software. Occasional wrong-word or 'cvbmi-v-ofzu' substitutions may have occurred due to the inherent limitations of voice recognition software. Read the chart carefully and recognize, using context, where substitutions have occurred. ?? @EDCOURSE@ Final diagnoses: None Type B dissection s/p endovascular repair By: Christine Gotti MD PhD Time: 08/22 0825 Comment: As with the patient in the [...] By: Christine Gotti MD PhD Time: 08/22 9113 Comment: Called the Pain Medicine Team (Anesthesia's)'s [...] RN - 08/23/2023 8:14 AM CDT Bed: [facility] Expected date: Expected time: Means of arrival: [...] Aet managed medicaid Prescription Coverage: yes Pharmacy: [facility]/pharmacy #[id number] [place] [address] [facility] [address] [facility] [address] Primary Care Provider: Carl Strickland MD Prior [...] Collaboration with patient, MD, direct care nurse, Porter Baggage, and other members of the health care team to assure needed interventions completed. 2. Return patient to optimal level of self-care post discharge. 3. Valve Machine Operator will follow for Discharge Planning [...] Markham RN * Plan of Care - Geneiss Bustamante RN - 08/23/2023 10:30 PM CDT [...] with voice recognition software. Occasional wrong-word or 'beuky-j-aspy' substitutions may have occurred due to the inherent limitations of voice recognition software. Read the chart carefully and recognize, using context, where substitutions have occurred. ?? @EDCOURSE@ Final diagnoses: None Type B dissection s/p endovascular repair By: Christine Gotti MD PhD Time: 08/23 0741 Comment: As with the patient in the CT scanner, postcontrast, dissection is apparent, contacting the vascular team By: Christine Gotti MD PhD Time: 08/22 0842 Value: CTA Chest Abdominal Aorta and Bilateral [...] Hunter MD Ayoub, Malek, MD Resident 08/23/23 1127 * ED Procedure Note - Christine Gotti [...] TO MICROSCOPIC STAT 08/23/2023 12:08 PM CDT IN CRITICAL CARE ILL/INJURED PATIENT INIT 30-74 MIN [...] MD PhD LAB BLOOD ORDERABLES Final Result [facility] [place] [address] * (ABNORMAL) Urinalysis reflex to microscopic (08/23/2023 12:08 PM CDT) Color, ur Straw Yellow Clarity, ur Clear Clear [facility] Specific gravity, ur >1.042(H) 1.003 - 1.030 [facility] pH, urine 7.5 [facility] Comment: Interpretive Data ? Urine pH is affected by diet, medications, systemic acid-base disturbances, and renal tubular function. ??pH may affect urinary stone formation. ??For example, urine pH below 6.0 may help reduce the tendency for calcium phosphate stones and pH greater than 6.0 may reduce the tendency for uric acid stone formation. Source: Natalia SeeFuture Current Interpretive Data was last revised on 2017 Protein, ur ql Trace Negative [facility] Glucose, ur ql Trace(A) Negative [facility] Ketones, ur Negative Negative [facility] Bilirubin, ur Negative Negative [facility] Blood, ur Negative Negative [facility] Urobilinogen, ur <2.0 <2.0 mg/dL [facility] Nitrite, ur Negative Negative [facility] Leukocyte esterase, ur Negative Negative [facility] UA reflex comment Reflex conditions for microscopic UA not met. [facility] Urine 08/23/2023 12:0 8 PM CDT 08/23/2023 12:22 PM CDT us Christine Gotti MD PhD LAB URINE ORDERABLES Final Result [facility] [place] [address] * IN CRITICAL CARE ILL/INJURED PATIENT INIT 30-74 MIN [...] Trop I hs delta 0 ng/L [facility] Trop I hs interp Insignificant [facility] Blood 08/23/2023 10:2 9 AM CDT 08/23/2023 10:43 AM CDT us Christine Gotti MD PhD LAB BLOOD ORDERABLES Final Result [facility] [place] [address] * CT Head WO Contrast (08/23/2023 8:58 [...] ECG 12-LEAD (08/23/2023 8:36 AM CDT) Narrative [facility] - 08/23/2023 8:36 AM CDT Christine Gotti [...] ECG ORDERABLES Final Result Performing Organization Address City/[facility] Co de Phone Number [facility] * POCT creatinine (08/23/2023 8:34 AM CDT) [facility] Creatinine POC 1.0 0.7 - 1.3 mg/dL Blood 08/23/2023 8:34 AM CDT 08/23/2023 8:34 AM CDT us Christine Gotti MD PhD LAB POCT ORDERABLES - DEVICE Final Result Performing Organization Address [facility] Co de Phone Number [facility] Department [place] [address] * Respiratory pathogen panel Nasopharyngeal (08/23/2023 8:21 AM CDT) [facility] Influenza A RNA Not Detected Not Detected Influenza B RNA Not Detected Not Detected [facility] RSV RNA Not Detected Not Detected [facility] COVID-19 RNA Not Detected Not Detected [facility] Coronavirus 229E RNA Not Detected Not Detected [facility] Coronavirus HKU1 RNA Not Detected Not Detected [facility] Coronavirus NL63 RNA Not Detected Not Detected [facility] Coronavirus OC43 RNA Not Detected Not Detected [facility] Adenovirus DNA Not Detected Not Detected [facility] Metapneumovirus RNA Not Detected Not Detected [facility] Rhinovirus/Enterov irus RNA Not Detected Not Detected [facility] Parainfluenza 1 RNA Not Detected Not Detected [facility] Parainfluenza 2 RNA Not Detected Not Detected [facility] Parainfluenza 3 RNA Not Detected Not Detected [facility] Parainfluenza 4 RNA Not Detected Not Detected [facility] B. pertussis DNA Not Detected Not Detected [facility] B. parapertussis DNA Not Detected Not Detected [facility] C. pneumoniae DNA Not Detected Not Detected [facility] M. pneumoniae DNA Not Detected Not Detected [facility] Nasopharyngeal 08/23/2023 8: 21 AM CDT 08/23/2023 8:45 AM CDT Narrative [facility] - 08/23/2023 9:59 AM CDT Is the Patient experiencing symptoms consistent with COVID?->Yes Surveillance testing for transplant patient?->No ??Interpretive Data The SaySwap FilmArray Respiratory Panel (RP2.1) assay is a [...] assay has FDA clearance for testing of [employer] swabs. ??The performance of additional specimen types has been assessed by the performing laboratory. ??The performance characteristics of this assay have been determined by [facility] Molecular Infectious Disease Laboratory. Current interpretive data was last revised on 22. Christine Gotti MD PhD LAB MICROBIOLOGY - [facility] ORDERABLES Final Result [facility] [place] [address] * (ABNORMAL) D-dimer, quantitative (08/23/2023 8:20 AM [...] PhD LAB BLOOD ORDERABLES Final Result [facility] [place] [address] * eGFR (08/23/2023 8:20 AM CDT) eGFR [...] MD PhD LAB BLOOD ORDERABLES Final Result [facility] [place] [address] * (ABNORMAL) Differential, auto (08/23/2023 8:20 AM CDT) Neutrophil abs 7.5(H) 1.5 - 6.5 K/cumm Imm gran abs 0.1 0.0 - 0.1 K/cumm [facility] Lymphocyte abs 1.4 0.8 - 3.3 K/cumm [facility] Monocyte abs 0.5 0.2 - 0.8 K/cumm [facility] Eosinophil abs 0.1 0.0 - 0.5 K/cumm [facility] Basophil abs 0.0 0.0 - 0.1 K/cumm [facility] Neutrophil pct 77.9 % [facility] Comment: Interpretive Data Percent cell count reference ranges are not reported, since discordance with absolute values may lead to misinterpretation of CBC data. Current Interpretive Data was last revised on 2017. Imm gran pct 1.0 % [facility] Comment: Interpretive Data Percent cell count reference ranges are not reported, since discordance with absolute values may lead to misinterpretation of CBC data. Current Interpretive Data was last revised on 2017. Lymphocyte pct 14.8 % [facility] Comment: Interpretive Data Percent cell count reference ranges are not reported, since discordance with absolute values may lead to misinterpretation of CBC data. Current Interpretive Data was last revised on 2017. Monocyte pct 5.3 % [facility] Comment: Interpretive Data Percent cell count reference ranges are not reported, since discordance with absolute values may lead to misinterpretation of CBC data. Current Interpretive Data was last revised on 2017. Eosinophil pct 0.6 % [facility] Comment: Interpretive Data Percent cell count reference ranges are not reported, since discordance with absolute values may lead to misinterpretation of CBC data. Current Interpretive Data was last revised on 2017. Basophil pct 0.4 % [facility] Comment: Interpretive Data Percent cell count reference ranges are not reported, since discordance with absolute values may lead to misinterpretation of CBC data. Current Interpretive Data was last revised on 2017. Blood 08/23/2023 8:20 AM CDT 08/23/2023 8:38 AM CDT Christine Gotti MD PhD LAB BLOOD ORDERABLES Final Result Performing Organization Address City/[facility] Co de Phone Number [facility] [place] [address] * Troponin I high-sensitivity series (baseline, 2hr, [...] BLOOD ORDERABLES Final Result Performing Organization Address City/[facility]/ZIP Co de Phone Number [facility] [place] [address] * (ABNORMAL) Sepsis Lactate w/ Reflex (08/23/2023 8:20 AM CDT) Sepsis Lactate 3.4(H) 0.7 - 2.0 mmol/L Blood 08/23/2023 8:2 0 AM CDT 08/23/2023 8:34 AM CDT Christine Gotti MD PhD LAB BLOOD ORDERABLES Final Result Performing Organization Address [facility] de Phone Number [facility] [place] [address] * Type and screen (08/23/2023 8:20 AM CDT) Ellen, indirect Negative ABO Rh A Positive [facility] Blood 08/23/2023 8:20 AM CDT 08/23/2023 8:55 AM CDT Narrative [facility] - 08/23/2023 9:46 AM CDT Has the patient had Daratumumab or Isatuximab in the past 6 months?->Unknown Christine Gotti MD PhD LAB BLOOD BANK TEST O RDERABLES Final Result Performing Organization Address [facility] de Phone Number [facility] [place] [address] * Protime-INR (08/23/2023 8:20 AM CDT) PT 13.5 10.3 - 13.7 sec INR 1.18 0.90 - 1.20 [facility] Comment: Interpretive data Oral anticoagulant therapeutic ranges: Venous thromboembolism prophylaxis or treatment: 2.0-3.0 CARDIOLOGY Standard range: 2.0-3.0 High-intensity range: 2.5-3.5 Refer to indication-specific guidelines for appropriate target ranges for prosthetic heart valve replacement. Current interpretive data was last revised on 2019. Blood 08/23/2023 8:20 AM CDT 08/23/2023 8:43 AM CDT Christine Gotti MD PhD LAB BLOOD ORDERABLES Final Result Performing Organization Address [facility] de Phone Number [facility] Department [place] [address] * (ABNORMAL) Comprehensive metabolic panel (08/23/2023 8:20 AM CDT) Sodium 135 135 - 145 mmol/L Potassium, pl 3.9 3.3 - 4.9 mmol/L [facility] Comment:Hemolyzed; Potassium value may be falsely elevated by as much as 0.6-1.0 mmol/L. Suggest redraw and reanalysis. Chloride 99 97 - 110 mmol/L [facility] CO2 22 22 - 32 mmol/L [facility] Anion gap 14 2 - 15 mmol/L [facility] BUN 9 6 - 25 mg/dL [facility] Creatinine 0.91 0.80 - 1.30 mg/dL [facility] Glucose 127 70 - 199 mg/dL [facility] Comment: Interpretive Data Fasting glucose >/= [...] 2022. Calcium 10.3 8.5 - 10.3 mg/dL [facility] Bilirubin, total 0.5 0.1 - 1.2 mg/dL [facility] Protein, pl 9.6(H) 6.5 - 8.5 g/dL [facility] Albumin 4.9 3.5 - 5.0 g/dL [facility] Alk phos 133(H) 40 - 130 Units/L [facility] ALT 21 7 - 55 Units/L [facility] AST 33 10 - 50 Units/L [facility] Comment:Hemolyzed; result ma y be falsely elevated Blood 08/23/2023 8:20 AM CDT 08/23/2023 8:38 AM CDT Christine Gotti MD PhD LAB BLOOD ORDERABLES Final Result [facility] Department [place] [address] * Lipase (08/23/2023 8:20 AM CDT) [facility] Lipase 10 10 - 99 Units/L Blood (Blood, Venous) 08/23/2023 8:20 AM CDT 08/23/2023 8:38 AM CDT Christine Gotti MD PhD LAB BLOOD ORDERABLES Final Result Performing Organization Address City/[facility] Co de Phone Number [facility] [place] [address] * CBC with auto differential (08/23/2023 8:20 AM CDT) [facility] WBC 9.6 3.8 - 9.9 K/cumm Hgb 14.0 13.0 - 17.5 g/dL [facility] Hct 41.6 38.9 - 50.3 % [facility] Plt 342 150 - 400 K/cumm [facility] MPV 9.2 9.1 - 12.3 fL [facility] RBC 4.91 4.30 - 5.80 M/cumm [facility] MCV 84.7 81.3 - 96.4 fL [facility] MCH 28.5 27.1 - 33.3 pg [facility] MCHC 33.7 32.3 - 35.7 g/dL [facility] RDW CV 14.9 11.1 - 14.9 % [facility] RDW SD 46.4 35.7 - 48.1 fL [facility] NRBC abs 0.00 0.00 - 0.01 K/cumm [facility] Blood (Blood, Venous) 08/23/2023 8:20 AM CDT 08/23/2023 8:38 AM CDT us Christine Gotti MD PhD LAB BLOOD ORDERABLES Final Result [facility] [place] [address] documented in this encounter Visit Diagnoses Diagnosis [...] Tue08/23/23 at 0818 0830 (Hold - Provider: Deniz Martinez RN - Reason: Other - Comment: [...] Landa RN) 0905 (Given - Provider: Christy Suarez, BRIA)1736 (Given - Provider: Christy Suarez, BRIA) haloperidol [...] not met) 0905 (Given - Provider: Christy Suarez, BRIA)1736 (Given - Provider: Christy Suarez RN) HYDROmorphone [...] Indications: Pain 1517 (Given - Provider: Deniz Martinez, BRIA) QUEtiapine (SEROquel) tablet 50 mg 50 mg, oral, Nightly, First dose on Tue08/23/23 at 2100 2130 (Given - Provider: Latanya Landa RN) senna-docusate (PERICOLACE) 8.6-50 mg per tablet [...] at 0834 0928 (Given - Provider: Deniz Martinez, BRIA - Comment: stop time 0930) HYDROmorphone (DILAUDID) [...] Bustamante, BRIA)1148 (Given - Provider: Christy Suarez, RN)1754 (Given - Provider: Christy Suarez, BRIA) oxyCODONE [...] documented as of this encounter Care Teams Fleet Sales Associate Relationship Specialty Start Date End Date Carl Strickland MD [address] [facility] [address] [place] [address] PCP - General Internal Medicine 06/06/23 Leo Manzano MD [address] [facility] [address] [place] [address] Surgeon Vascular Surgery 05/16/23 documented as of this encounter
--- OUTSIDE RECORDS SUMMARY | 2024-05-30 06:28 | XMS_ITS | Encounter Summary ---
Author Organization [facility] Address [address] [place] [address] Phone Care Team Providers Care Computer Aided Design Designer Name Role Phone Leo Manzano MD Unavailable [phone] Carl Strickland MD Primary Care Provider Reason for Referral * Diagnostic Imaging (Routine) - Pending Review Specialty Diagnoses / Procedures Referred By Fernando alan Referred To Contact Diagnoses Ureteral stone Procedures US Retroperitoneal Complete Stacia Su MD [address] [facility] [address] [place] [address] Phone: tel: fax: [address] [address] Referral ID Status Reason Start Date Expiration Date V isits Requested Visits Authorized [id number] Pending Review 07/14/2023 08/12/2024 1 1 ROOM ATTENDANT Reason for Visit * Reason Comments Procedure Cysto * Consultation (Routine) - Authorized Specialty Diagnoses / Procedures Referred By Fernando alan Referred To Contact Urology Diagnoses Encounter for removal of ureteral stent Carl Strickland MD [address] [facility] 1 [place] [address] Phone: tel: fax: [facility] (All Locations) Referral ID Status Reason Start Date Expiration Date Visits Requested Visits Authorized [id number] Authorized Specialty Services Required 07/08/2023 08/06/2024 12 12 Encounter Details Date Type Department Care Team (Late st Contact Info) Description 07/14/2023 10:30 AM CARDROOM ATTENDANT Office Visit [facility]) - [facility] Urology [address] [facility] 11th [place] [address] [place] [address] Ureteral stone (Primary Dx); Encounter for removal of ureteral stent Social History Tobacco Use Types Packs/Day Years Used Date Smoking Tobacco: Never Smokeless Tobacco: Never Alcohol Use Standard Drinks/Week Comments Not Currently 0 (1 standard drink = 0.6 oz pur e alcohol) [facility] Utilities Answer Date Recorded In the past 12 months has [employer], gas, oil, or water company threatened to [...] How often do you attend chur or pentecostal services? More than 4 times per year [...] on file Legal Sex Male 3:42 AM CARDROOM ATTENDANT Gender Identity Not on file Sexual Orientation Straight 06/12/2023 11 :43 PM CARDROOM ATTENDANT documented as of this encounter Progress Notes * Gila Whitten LPN - 07/14/2023 10:30 AM CST Cysto Prep: Gu Indication: Stent removal Explained cystoscopy procedure to patient with understanding verbalized. Patient was given Keflex 500 mg (Cephalexin) 30 minutes prior to procedure. Pt was prepped with betadine. Lidocaine 4% instilled into the urethral area. Car Filler declined. Patient is ambulatory withgaines. Supervising provider: Marcus Whitten LPN ROOM ATTENDANT * Stacia Su MD - 07/14/2023 10:30 [...] Marcus Glass MD at 07/14/2023 11:03 AM CARDROOM ATTENDANT ROOM ATTENDANT ROOM ATTENDANT Associated attestation - Marcus Glass MD - 07/14/2023 11:03 AM CARDROOM ATTENDANT I was present for the entire procedure. [...] 07/14/2023 documented in this encounter Care Teams Computer Aided Design Designer Relationship Specialty Start Date End Date Carl Strickland MD [address] [facility] 1 [place] [address] PCP - General Internal Medicine 06/06/23 Leo Manzano MD [address] [place] [address] Surgeon Vascular Surgery 05/16/23 documented as of this encounter
--- OUTSIDE RECORDS SUMMARY | 2024-05-30 06:28 | XMS_ITS | Encounter Summary ---
Author Organization [facility] Address [address] [place] [address] Phone Care Team Providers Care Parts Casting Machine Operator Name Role Phone Leo Manzano MD Unavailable [phone] Carl Strickland MD Primary Care Provider Encounter Details Date Type Department Care Team (Late st Contact Info) Description 08/16/[address] [facility] Vascular Surgery [facility] Medical Office Building [address] [place] [address] Girma Chang, A Social History Tobacco Use Types Packs/Day Years Used Date Smoking Tobacco: Never Smokeless Tobacco: Never Alcohol Use Standard Drinks/Week Comments Not Currently 0 (1 standard drink = 0.6 oz pur e alcohol) [facility] Utilities Answer Date Recorded In the past 12 months has [employer] electric, gas, oil, or water company threatened [...] or slept in a fdc (including now)? No 07/06/2023 Personal Safety Answer Date Recorded Have you ever been in or are you currently in a harmful physical or emotional relationship or is someone making you feel afraid or unsafe? Denies 07/26/2023 Sex and Gender Information Value Date Recorded Sex Assigned at Not on file Legal Sex Male 3:42 AM BUILDING MAINTENANCE SUPERVISOR Gender Identity Not on file Sexual Orientation Straight 06/12/2023 11 :43 PM BUILDING MAINTENANCE SUPERVISOR documented as of this encounter Miscellaneous [...] on filedocumented in this encounter Care Teams Parts Casting Machine Operator Relationship Specialty Start Date End Date Carl Strickland MD [address] [facility] 1 [place] [address] PCP - General Internal Medicine 06/06/23 Leo Manzano MD [address] [place] [address] Surgeon Vascular Surgery 05/16/23 documented as of this encounter
--- OUTSIDE RECORDS SUMMARY | 2024-05-30 06:28 | XMS_ITS | Encounter Summary ---
Author Organization [facility] Healthcare Address [address] [place] [address] Care Team Providers Care Occupational Therapy Assistant Name Role Phone Leo Manzano MD Unavailable [phone] Carl Strickland MD Primary Care Provider Genevieve Hunt RN Unavailable [phone] Reason for Visit * Reason Comments Declined Enrollment Encounter Details Date Type Department Care Team (Late st Contact Info) Description 09/12/2023 SHOP/CHAP Initial Outreach [facility] OP CASE MANAGEMENT 1 [place] [address] Genevieve Hunt, RN [address] [facility] [address] [place], [place] [id number] Social History Tobacco Use Types Packs/Day Years Used Date Smoking Tobacco: Never Smokeless Tobacco: Never Alcohol Use Standard Drinks/Week Comments Not Currently 0 (1 standard drink = 0.6 oz pur e alcohol) [facility] Utilities Answer Date Recorded [...] declined 09/12/2023 How often do you attend judaism or latter day serv ices? Patient declined 09/12/2023 Do you [...] a senior care (including now)? Patient declined 09/12/2023 Personal Safety Answer Date Recorded Have you ever been in or are you currently in a harmful physical or emotional relationship or is someone making you feel afraid or unsafe? Denies 09/05/2023 Sex and Gender Information Value Date Recorded Sex Assigned at Not on file Legal Sex Male 3:42 AM MAINFRAME CONSULTANT Gender Identity Not on file Sexual Orientation Straight 06/12/2023 11 :43 PM MAINFRAME CONSULTANT documented as of this encounter Plan of Treatment Not on file documented as of this encounter Visit Diagnoses Not on filedocumented in this encounter Care Teams Occupational Therapy Assistant Relationship Specialty Start Date End Date Carl Strickland MD [address] [facility] 1 [place] [address] PCP - General Internal Medicine 06/06/23 Leo Manzano MD [address] [place] [address] Surgeon Vascular Surgery 05/16/23 Genevieve Hunt RN [address] [facility] [address] [place] [address] SHOP Outpatient Radiologist Diagnostic 09/12/23 09/12/23 documented as of this encounter
--- OUTSIDE RECORDS SUMMARY | 2024-05-30 06:28 | XMS_ITS | Encounter Summary ---
Author Organization [facility] Healthcare Address [address] [place] [address] Care Team Providers Care Axle Bearing Polisher Name Role Phone Leo Manzano MD Unavailable [phone] Carl Strickland MD Primary Care Provider Genevieve Hunt RN Unavailable [phone] Reason for Visit * Reason Onset Date Comments Scheduling Appointments 07/18/2023 Encounter Details Date Type Department Care Team (Late st Contact Info) Description 07/18/2023 Telephone [facility] [address] [place] [id number] Radha Laurent CMA Scheduling Appointments Social History Tobacco Use Types Packs/Day Years Used Date Smoking Tobacco: Never Smokeless Tobacco: Never Alcohol Use Standard Drinks/Week Comments Not Currently 0 (1 standard drink = 0.6 oz pur e alcohol) [facility] Utilities Answer Date Recorded In the past 12 months has [employer] electric, gas, oil, or water company threatened [...] declined 10/02/2023 How often do you attend rastafari or jainism serv ices? Patient declined 10/02/2023 Do you belong to any clubs o r organizations such as rastafari groups, unions, fraternal or athletic groups, or [...] on file Legal Sex Male 3:42 AM MOPPER Gender Identity Not on file Sexual Orientation Straight 06/12/2023 11 :43 PM MOPPER documented as of this encounter Miscellaneous Notes * Telephone Encounter - Radha Laurent - 11/17/2023 3:21 PM CDT N/a documented in this encounter Plan of Treatment Not on file documented as of this encounter Goals Goal Patient Goal Type Associated Problems Recent Progress Patient-Stated? Author CCM Chronic Pain Care Plan Chronic Care Management No change(05/16 2:51 PM MOPPER) No Rita Landa, BRIA Note: Problem: Chronic [...] COVID: Suspected 07/26/2023 07/26/2023 07/26/2023 5:11 PM MOPPER COVID: Suspected 08/23/2023 08/23/2023 08/23/2023 10:00 AM CDT COVID: Suspected 09/06/2023 09/06/2023 09/06/2023 1:13 AM CDT documented as of this encounter Care Teams Axle Bearing Polisher Relationship Specialty Start Date End Date Carl Strickland MD [address] [facility] 1 [place] [address] PCP - General Internal Medicine 06/06/23 Leo Manzano MD [address] [place] [address] Surgeon Vascular Surgery 05/16/23 Genevieve Hunt RN [address] [facility] [address] [place] [address] SHOP Outpatient Generator Technician 09/12/23 09/12/23 documented as of this encounter
--- OUTSIDE RECORDS SUMMARY | 2024-05-30 06:28 | XMS_ITS | Encounter Summary ---
Author Organization [facility] Healthcare Address [address] [place] [address] Care Team Providers Care Candy Cutter Machine Name Role Phone Leo Manzano MD Unavailable [phone] Carl Strickland MD Primary Care Provider Encounter Details Date Type Department Care Team (Latest Contact Info) Description 07/08/2023 Telephone Urology Gisele Courtney, FINISHING SUPERVISOR [address] [facility] [address] [place] [address] Social History Tobacco Use Types Packs/Day Years Used Date Smoking Tobacco: Never Smokeless Tobacco: Never Alcohol Use Standard Drinks/Week Comments Not Currently 0 (1 standard drink = 0.6 oz pur e alcohol) [facility] Utilities Answer Date Recorded In the past 12 months has [employer], gas, oil, or water [employer] threatened to shut off services in your [...] 07/06/2023 How often do you attend [facility] or taoism services? More than 4 times per year [...] on file Legal Sex Male 3:42 AM REED MAN Gender Identity Not on file Sexual Orientation Straight 06/12/2023 11 :43 PM REED MAN documented as of this encounter Miscellaneous Notes * Telephone Encounter - Gisele Courtney NP - 07/08/2023 11:14 AM CST S/p stone extraction with stent placement. Please schedule in [facility] on 07/14/2023 at 1030 for cysto with stent removal Thank you, Gisele MAN documented in this encounter Plan of Treatment Not on file documented as of this encounter Visit Diagnoses Not on filedocumented in this encounter Care Teams Candy Cutter Machine Relationship Specialty Start Date End Date Carl Strickland MD [address] [address] PCP - General Internal Medicine 06/06/23 Leo Manzano MD [address] [place] [address] Surgeon Vascular Surgery 05/16/23 documented as of this encounter
--- OUTSIDE RECORDS SUMMARY | 2024-05-30 06:28 | XMS_ITS | Encounter Summary ---
Author Organization [facility] Address [address] [place] [address] Phone Care Team Providers Care Chronic Specialist Name Role Phone Leo Manzano MD Unavailable [phone] Carl Strickland MD Primary Care Provider Encounter Details Date Type Department Care Team (Late st Contact Info) Description 08/15/2023 Orders Only [facility] Urology [address] [facility] Medical Office Building [address] [place] [address] Marcus Gamboa MD [address] [place] [address] Ureteral stone (Primary Dx) Social [...] often do you attend chur ch or alevism services? More than 4 times per year [...] file Legal Sex Male 3:42 AM MANAGER SURGERY Gender Identity Not on file Sexual Orientation Straight 06/12/2023 11 :43 PM MANAGER SURGERY documented as of this encounter Plan of Treatment Scheduled Orders Name Type Priority Associated Diagnoses Orde r Schedule [facility] 24Hr Urine Panel Lab Routine Ureteral stone Expected: 08/15/2023, Expires: 08/14/2024 [facility] 24Hr Urine Panel Lab Routine Ureteral stone Expected: 08/15/2023, Expires: 08/14/2024 documented as of this encounter Visit Diagnoses Diagnosis Ureteral stone- Primary Calculus of ureter documented in this encounter Care Teams Chronic Specialist Relationship Specialty Start Date End Date Carl Strickland MD [address] [facility] 1 [place] [address] PCP - General Internal Medicine 06/06/23 Leo Manzano MD [address] [facility] [address] [place] [address] Surgeon Vascular Surgery 05/16/23 documented as of this encounter
--- OUTSIDE RECORDS SUMMARY | 2024-05-30 06:28 | XMS_ITS | Encounter Summary ---
Author Organization [facility] Healthcare Address [address] [place] [address] Care Team Providers Care Escalator Constructor Name Role Phone Leo Manzano MD Unavailable [phone] Carl Strickland MD Primary Care Provider Reason for Visit * Auth/Cert (Routine) Specialty Diagnoses / Procedures Referred By Contac t Referred To Contact Diagnoses Ureteral stone Left flank pain Procedures N/A Referral ID Status Reason Start Date Expiration Date Visits Re quested Visits Authorized [id number] 1 1 Encounter Details Date Type Department Care Team (Latest Contact Info) Description 07/04/2023 7:00 PM COOK HELPER - 07/04/2023 11:59 PM COOK HELPER Hospital Encounter [facility] [address] [place] [address] Discharge Disposition: Discharge to home or self [...] often do you attend chur ch or islam services? More than 4 times per year [...] file Legal Sex Male 3:42 AM COOK HELPER Gender Identity Not on file Sexual Orientation Straight 06/12/2023 11 :43 PM COOK HELPER documented as of this encounter Medications at [...] 1 HOUR IP Routine 07/04/2023 8:16 PM COOK HELPER Ureteral stone documented in this encounter Results * FL Fluoroscopy < 1 Hour (07/04/2023 8:16 PM COOK HELPER) Narrative [facility] - 07/04/2023 8:17 PM COOK HELPER The images from this study are not interpreted by Radiology. ??Please refer to the physician's procedure / OR operative note. Nagi Landa MD IMG FLUOROSCOPY PROCED URES Final Result Performing Organization Address City/State/[facility] Co de Phone Number [facility] documented in this encounter Visit Diagnoses Not on filedocumented in this encounter Care Teams Escalator Constructor Relationship Specialty Start Date End Date Carl Strickland MD [address] [facility] [address] [place] [address] PCP - General Internal Medicine 06/06/23 Leo Manzano MD [address] [place] [address] Surgeon Vascular Surgery 05/16/23 documented as of this encounter
--- OUTSIDE RECORDS SUMMARY | 2024-05-30 06:28 | XMS_ITS | Encounter Summary ---
Author Organization [facility] Healthcare Address [address] [place] [address] Care Team Providers Care Supervisor Packing Name Role Phone Leo Manzano MD Unavailable [phone] Carl Strickland MD Primary Care Provider Reason for Referral * Consultation (Routine) - Pending Review Specialty Diagnoses / Procedures Referred By Contnazia t Referred To Contact Pain Management Diagnoses Other chronic pain Carl Strickland MD [address] [place] [address] Phone: tel: fax: [address] [address] Referral ID Status Reason Start Date Expiration Date Visits Requested Visits Authorized [id number] Pending Review Specialty Services Required 07/14/2023 08/12/2024 1 1 Question Answer Please select the performing region: [facility] [152] # of visits: 1 CUSHION PRESS OPERATOR Encounter Details Date Type Department Care Team (Late st Contact Info) Description 07/14/2023 Orders Only [facility] [address] [place] [address] [address] Carl Strickland MD [address] [facility] 1 [place] [address] Other chronic pain (Primary Dx) Social History Tobacco Use Types Packs/Day Years Used Date Smoking Tobacco: Never Smokeless Tobacco: Never Alcohol Use Standard Drinks/Week Comments Not Currently 0 (1 standard drink = 0.6 oz pur e alcohol) [facility] Utilities Answer Date Recorded In the past 12 months has e [employer], gas, oil, or water [employer] threatened to shut off services in your [...] week 07/06/2023 How often do you attend [facility] or lutheran services? More than 4 times per year 07/06/2023 Do you belong to any clubs o r organizations such as nondenominational groups, unions, fraternal or athletic groups, or [...] on file Legal Sex Male 3:42 AM ARCH CUSHION PRESS OPERATOR Gender Identity Not on file Sexual Orientation Straight 06/12/2023 11 :43 PM ARCH CUSHION PRESS OPERATOR documented as of this encounter Plan of Treatment Scheduled Referrals Name Type Priority Associated Diagnoses Order Schedule Ambulatory referral to Pain Management Outpatient Referral Routine Other chronic pain Expected: 07/28/2023 (Approximate), Expires: 07/14/2024 documented as of this encounter Visit Diagnoses Diagnosis Other chronic pain- Primary documented in this encounter Care Teams Supervisor Packing Relationship Specialty Start Date End Date Carl Strickland MD [address] [facility] 1 [place] [address] PCP - General Internal Medicine 06/06/23 Leo Manzano MD [address] [facility] [address] [place] [address] Surgeon Vascular Surgery 05/16/23 documented as of this encounter
--- OUTSIDE RECORDS SUMMARY | 2024-05-30 06:28 | XMS_ITS | Encounter Summary ---
Author Organization [facility] Healthcare Address [address] [place] [address] Care Team Providers Care Shuttle Preparation Supervisor Name Role Phone Leo Manzano MD Unavailable [phone] Carl Strickland MD Primary Care Provider Reason for Referral * MRI/CAT/PET Scan (Routine) - Closed Specialty Diagnoses / Procedures Referred By Contac t Referred To Contact Radiology Diagnoses Dissection of thoracoabdominal aorta (CMS/HCC) (HCC) Procedures CTA Chest Abdomen Pelvis Leo Manzano MD [address] [place] [address] Phone: tel: fax: [address] [address] Referral ID Status Reason Start Date Expiration Date Visits Re quested Visits Authorized [id number] Closed 07/19/2023 09/17/2023 1 1 DEALER Reason for Visit * MRI/CAT/PET Scan (Routine) - Closed Specialty Diagnoses / Procedures Referred By Contac t Referred To Contact Radiology Diagnoses Dissection of thoracoabdominal aorta (CMS/HCC) (HCC) Procedures CTA Chest Abdomen Pelvis Leo Manzano MD [address] [place] [address] Phone: tel: fax: [facility] [place]H [place] [phone] Referral ID Status Reason Start Date Expiration Date Visits Re quested Visits Authorized [id number] Closed 07/19/2023 09/17/2023 1 1 Encounter Details Date Type Department Care Team (Latest Contact Info) Description 08/03/2023 1:09 PM ART DEALER - 08/03/2023 11:59 PM ART DEALER Hospital Encounter [facility] [id number] Rose [address] Dissection of thoracoabdominal aorta (CMS/HCC) (HCC) Discharge Disposition: Discharge to home or self care Social History Tobacco Use Types Packs/Day Years Used Date Smoking Tobacco: Never Smokeless Tobacco: Never Alcohol Use Standard Drinks/Week Comments Not Currently 0 (1 standard drink = 0.6 oz pur e alcohol) [facility] Utilities Answer Date Recorded In the past 12 months has [employer], gas, oil, or water [employer] threatened to shut off services in your [...] week 07/06/2023 How often do you attend [facility] or mosque services? More than 4 times [...] on file Legal Sex Male 3:42 AM ART DEALER Gender Identity Not on file Sexual Orientation Straight 06/12/2023 11 :43 PM ART DEALER documented as of this encounter Medications at [...] Read Routine (OP Routine) 08/03/2023 1:22 PM ART DEALER Dissection of thoracoabdominal aorta (CMS/HCC) (HCC) POC ISTAT Routine 08/03/2023 1:19 PM ART DEALER documented in this encounter Results * CTA Chest Abdomen Pelvis (08/03/2023 1:22 PM ART DEALER) Anatomical Region Laterality Modality Body N/A Computed Tomogra phy 08/03/2023 2:43 PM ART DEALER Impressions 08/03/2023 4:11 PM ART DEALER 1. ??Unchanged thoracoabdominal aortic dissection managed with [...] Monster Easley M.D. Narrative 08/03/2023 4:11 PM ART DEALER EXAMINATION: ??CTA CHEST ABDOMEN PELVIS HISTORY: Aortic [...] sult * POC ISTAT (08/03/2023 1:19 PM ART DEALER) Creatinine, POC, bld 1.1 0.6 - 1.3 mg/dL POC Device Number [id number] JAIRON ERWINWCH POC Performer [id number] JAIRON ERWINWBRIAN Blood 08/03/2023 1:19 PM ART DEALER 08/03/2023 1:19 PM ART DEALER Leo Manzano MD LAB BLOOD ORDERABLES Final Result JAIRON BJWCH [address] [facility]. Department [email or web address] [address] documented in this encounter Visit [...] 1 dose Contrast Given 08/03/2023 1:25 PM ART DEALER 100 mL documented in this encounter Orders Medications Ordered That Gerardo ht Not Have Been Administered Count Last Ordered Date First Ordered Date ioversoL (OPTIRAY 350) injec tion 0.01-500 mL 1 08/03/2023 documented in this encounter Care Teams Shuttle Preparation Supervisor Relationship Specialty Start Date End Date Carl Strickland MD [address] [facility] 1 [place] [address] PCP - General Internal Medicine 06/06/23 Leo Manzano MD [address] [place] [address] Surgeon Vascular Surgery 05/16/23 documented as of this encounter
--- OUTSIDE RECORDS SUMMARY | 2024-05-30 06:29 | XMS_ITS | Encounter Summary ---
Author Organization [facility] Healthcare Address [address] [place] [address] Care Team Providers Care Dish Stacker Name Role Phone Faustino Herrera MD Unavailable [phone] Carl Strickladn MD Primary Care Provider Reason for Visit * Reason Comments Hypertension * Auth/Cert (Routine) Specialty Diagnoses / Procedures Referred By Contac t Referred To Contact Diagnoses Infrarenal abdominal aortic aneurysm, without rupture (HCC) Procedures NA Referral ID Status Reason Start Date Expiration Date Visits Re quested Visits Authorized [id number] 1 1 Encounter Details Date Type Department Care Team (Latest Contact Info) Description 06/13/2023 12:39 PM GLASS BULB SILVERER - 06/25/2023 1:35 PM GLASS BULB SILVERER Hospital Encounter [facility] [address] [place] [address] Guerrero De Los Santos MD [address] [place] [address] Faustino Herrera MD [address] [facility] [id number] [place] [address] Nigel Mercado MD [address] [place] [address] Infrarenal abdominal aortic aneurysm, without rupture (HCC) [...] drink = 0.6 oz pur e alcohol) [facility] Utilities Answer Date Recorded In the past 12 months has e electric, gas, oil, or water [employer] threatened to shut off services in your [...] often do you attend chur ch or sikh services? More than 4 times per year [...] slept in a penitentiary (including now)? No 06/15/2023 Personal Safety Answer Date Recorded Getting School Help Needed Denies 05/09 Sex and Gender Information Value Date Recorded Sex Assigned at Not on file Legal Sex Male 3:42 AM GLASS BULB SILVERER Gender Identity Not on file Sexual Orientation Straight 06/12/2023 11 :43 PM GLASS BULB SILVERER documented as of this encounter Last Filed Vital Signs Vital Sign Reading Time Taken Comments Blood Pressure 159/69 06/25/2023 8:52 AM GLASS BULB SILVERER Pulse 74 06/25/2023 8:52 AM GLASS BULB SILVERER Temperature 36.6 ??C (97.9 ??F) 06/25/2023 8:52 AM CS T Respiratory Rate 18 06/25/2023 8:52 AM GLASS BULB SILVERER Oxygen Saturation 99% 06/25/2023 8:52 AM GLASS BULB SILVERER Inhaled Oxygen Concentration - - Weight 98.8 kg (217 lb 13 oz) 06/24/2023 4:45 AM GLASS BULB SILVERER Height 175.3 cm (5' 9 ) 06/13/2023 7:35 PM GLASS BULB SILVERER Body Mass Index 32.17 06/13/2023 7:35 PM GLASS BULB SILVERER documented in this encounter Discharge Summaries * Cristobal Chopra MD - 06/25/2023 10:19 AM CST Inpatient Discharge Summary BRIEF OVERVIEW Admitting Provider: Faustino Herrera MD Discharge Provider: Faustino Herrera MD Primary Care Physician at Discharge: Carl Strickland MD [phone] Admission Date: 06/13/2023 Discharge Date: 06/25/2023 Admission Location: [facility] Problems/Diagnoses: Principal Problem: Infrarenal abdominal aortic aneurysm, without rupture (HCC) Active Problems: HTN (hypertension) Chronic back pain Pseudoaneurysm following procedure (CMS/HCC) ([facility]) Resolved Problems: No resolved hospital problems. DETAILS [...] control Hospital Course: Pseudoaneurysm following procedure (CMS/HCC) ([facility]) Assessment & Plan - s/p vascular access [...] to prescribe narcotics for a patient with [place] Medicaid was not available immediately, he was [...] abdominal pain, or have new weakness, call 226 or visit your local emergency department. You [...] [id number] 08/03/2023 2:45 PM Faustino Herrera MD [facility] [address] Cosigned by Faustino Herrera MD at 06/25/2023 12:48 PM GLASS BULB SILVERER S BULB SILVERER S BULB SILVERER S BULB SILVERER S BULB SILVERER S BULB SILVERER documented in this encounter Medications at Time [...] (ICU transfer Accept) Patient Name/MRN: Eriberto Chau [id number] Treatment Team: Vascular Surgery- Pager: [phone] Attending: Faustino Herrera MD Today's Date: 06/24/2023 Room/Bed: [id number] Admit Date: 06/13/2023 Code Status: Full Code [...] Chloride 30 mL intravenous PRN Mateo Diaz TWENTY ONE DEALER 30 mL at 06/17/23 0129 carvediloL (COREG) tablet 37.5 mg 37.5 mg oral BID with meals (bkfst, dinner) Cristobal Cote MD 37.5 mg at 06/24/23 0810 docusate sodium (COLACE) capsule 100 mg 100 mg oral BID Mateo Diaz TWENTY ONE DEALER 100 mg at 06/23/23 0811 enoxaparin (LOVENOX) syringe 40 mg 40 mg subcutaneous Daily-2100 Mateo Diaz TWENTY ONE DEALER 40 mg at 06/23/232052 hydrALAZINE (APRESOLINE) tablet [...] 4 mg intravenous Q6H PRN Mateo Diaz TWENTY ONE DEALER 4 mg at 06/15/23 0841 oxyCODONE (ROXICODONE) tablet 10 mg 10 mg oral Q3H PRN Dank Villa MD 10 mg at 06/24/23 1053 polyethylene glycol (MIRALAX) packet 17 g 17 g oral BID Sreekanth Armstrong, TREE 17 g at 06/22/232107 pregabalin (LYRICA) capsule 75 mg 75 mg oral BID Cristobal Chopra MD senna (SENOKOT) tablet 1 tablet 1 tablet oral BID Mateo Diaz, TWENTY ONE DEALER 1 tablet at 06/23/23 0810 tamsulosin (FLOMAX) [...] or family members viewing this note through [employer] programs: This note was written as a [...] Faustino Herrera MD at 06/24/2023 2:21 PM GLASS BULB SILVERER S BULB SILVERER S BULB SILVERER * Dank Villa MD - 06/24/2023 10:19 [...] nontender, active bowel sounds : voids Skin: [place], warm, dry Assessment /Plan NEURO: #Acute Pain [...] and Critical Care Surgery [facility] [place] Critical Care Performed by: Dank Villa MD [...] with the ICU team and other medical/business info consultant staff, making frequent assessments and decisions [...] patient with consultants and the medical staff S BULB SILVERER S BULB SILVERER * Dank Villa MD - 06/23/2023 9:36 [...] nontender, active bowel sounds : voids Skin: [place], warm, dry Assessment /Plan NEURO: #Acute Pain [...] and Critical Care Surgery [facility] [place] Critical Care Performed by: Dank Villa MD [...] with the ICU team and other medical/business info consultant staff, making frequent assessments and decisions [...] from bedside monitors, laboratory results, and imaging S BULB SILVERER * Rosey Fine MD - 06/23/2023 7:41 AM CST Vascular Surgery Daily Progress Patient Name/MRN: Eriberto Chau [id number] Treatment Team: Vascular Surgery- Attending: Faustino Herrera MD Today's Date: 06/23/2023 Room/Bed: [id number] Admit Date: 06/13/2023 Code Status: Full Code Events Over Last 24 Hours: No acute issues overnight. Neuromotor intact. Denies any back pain this morning. Denies abdominal, chest pain. Left groin pain resolved. Allergies Allergen Reactions Amoxicillin Hives Current Facility-Administered Medications Medication Dose Route Frequency Provider Last Rate Last Admin acetaminophen (TYLENOL) tablet 1,000 mg 1,000 mg oral Q6H [facility] Dank Villa MD 1,000 mg at 06/23/23 [...] mg 100 mg oral BID Mateo Diaz TWENTY ONE DEALER 100 mg at 06/22/232107 enoxaparin (LOVENOX) syringe 40 mg 40 mg subcutaneous Daily-2100 Mateo Diaz TWENTY ONE DEALER 40 mg at 06/22/232107 gabapentin (NEURONTIN) capsule [...] infusion 10 mL/hr intravenous Continuous Mateo Diaz TWENTY ONE DEALER 10 mL/hr at 06/21/23 1131 10 mL/hr [...] 4 mg intravenous Q6H PRN Mateo Diaz TWENTY ONE DEALER 4 mg at 06/15/23 0841 oxyCODONE (ROXICODONE) tablet 7.5 mg 7.5 mg oral Q4H PRN Dank Villa MD 7.5 mg at 06/23/23 0239 polyethylene glycol (MIRALAX) packet 17 g 17 g oral BID Sreekanth Armstrong, TWENTY ONE DEALER 17 g at 06/22/232107 QUEtiapine (SEROquel) tablet 25 mg 25 mg oral Nightly Dank Villa MD 25 mg at 06/22/232106 senna (SENOKOT) tablet 1 tablet 1 tablet oral BID Mateo Diaz, TWENTY ONE DEALER 1 tablet at 06/22/232106 sodium chloride 0.9% [...] month. Rosey Fine MD Vascular Surgery Fellow [phone] Cosigned by Faustino Herrera MD at 06/23/2023 6:35 PM GLASS BULB SILVERER S BULB SILVERER S BULB SILVERER * Dank Villa MD - 06/22/2023 11:30 [...] nontender, active bowel sounds : voids Skin: [place], warm, dry Assessment /Plan NEURO: #Acute Pain [...] Section of Acute and Critical Care Surgery [facility] Critical Care Performed by: Dank Villa MD [...] with the ICU team and other medical/business info consultant staff, making frequent assessments and decisions [...] from bedside monitors, laboratory results, and imaging S BULB SILVERER * Rosey Fine MD - 06/22/2023 9:09 AM CST Vascular Surgery Daily Progress Patient Name/MRN: Eriberto Chau [id number] Treatment Team: Vascular Surgery- Attending: Faustino Herrera MD Today's Date: 06/22/2023 Room/Bed: [id number] Admit Date: 06/13/2023 Code Status: Full Code Events Over Last 24 Hours: SBP within goal range mostly 140-160 on PO meds. Neuromotor intact. Denies any back pain this morning. Denies abdominal, chest pain. Left groin pain resolved. Allergies Allergen Reactions Amoxicillin Hives Current Facility-Administered Medications Medication Dose Route Frequency Provider Last Rate Last Admin acetaminophen (TYLENOL) tablet 1,000 mg 1,000 mg oral Q6H [facility] Dank Villa MD 1,000 mg at 06/22/23 0606 amLODIPine (NORVASC) tablet 10 mg 10 mg oral Daily Sreekanth Armstrong NP 10 mg at 06/22/23 0838 captopriL (CAPOTEN) tablet 50 mg 50 mg oral TID Cirstobal Cote MD 50 mg at 06/22/23 0831 [...] mg 100 mg oral BID Mateo Diaz TWENTY ONE DEALER 100 mg at 06/22/23 0831 enoxaparin (LOVENOX) syringe 40 mg 40 mg subcutaneous Daily-2100 Mateo Diaz TWENTY ONE DEALER 40 mg at 06/21/23 2130 gabapentin (NEURONTIN) capsule 300 mg 300 mg oral TID Sreekanth Armstrong NP 300 mg at 06/22/23 0831 [Held by Provider] hydrALAZINE (APRESOLINE) tablet 100 mg 100 mg oral TID Mateo Diaz TWENTY ONE DEALER 100 mg at 06/21/23 0814 HYDROmorphone (DILAUDID) injection 0.5 mg 0.5 mg intravenous Q3H PRN Dank Villa MD labetaloL (NORMODYNE,TRANDATE) injection 5 mg 5 mg intravenous Q2H PRN Dank Villa MD Lactated Ringer's (LR) infusion 10 mL/hr [...] BID Mateo Diaz NP 1 tablet at 06/22/23 0831 sodium [...] month. Rosey Fine MD Vascular Surgery Fellow [phone] Cosigned by Faustino Herrera MD at 06/22/2023 9:15 AM GLASS BULB SILVERER S BULB SILVERER S BULB SILVERER * Rosey Nance - 06/21/2023 10:29 AM [...] Walker Prior Function Prior Function Level of [place]: Independent functional transfers, Independent with ambulation, Needs [...] Mariel Pope OT at 06/21/2023 11:22 AM GLASS BULB SILVERER S BULB SILVERER S BULB SILVERER * Dank Villa MD - 06/21/2023 9:52 [...] nontender, active bowel sounds : voids Skin: [place], warm, dry Assessment /Plan NEURO: #Acute Pain [...] and Critical Care Surgery [facility] [place] Critical Care Performed by: Dank Villa MD [...] with the ICU team and other medical/business info consultant staff, making frequent assessments and decisions [...] from bedside monitors, laboratory results, and imaging S BULB SILVERER S BULB SILVERER * Christina Landa PT - 06/21/2023 8:24 [...] home Prior Function Prior Function Level of [place]: Independent functional transfers, Independent with ambulation (Mod I with WWat all times) Lives With: Significant other, Family Receives Help From: Family (multimedia coordinator) Fall within the last 6 months: No [...] well and is without acute mobility deficts. S BULB SILVERER * Joaquín Abarca MD - 06/21/2023 7:58 [...] opposed to giving two calcium channel blockers) S BULB SILVERER * Joaquín Abarca MD - 06/20/2023 8:33 [...] already on a calcium channel louie, amlodipine S BULB SILVERER * Darren Busby, RD - 06/20/2023 12:42 [...] Adult Diet Regular Diet effective now Question: ([facility]) Diet type Answer: Regular 06/13/231821 Pt presents [...] intervention as indicated. Darren Busby MS, RD, [facility], N [phone] Dental Manager-Weekend: [phone] S BULB SILVERER * Dank Villa MD - 06/20/2023 10:00 [...] nontender, active bowel sounds : voids Skin: [place], warm, dry Assessment /Plan NEURO: #Acute Pain [...] ; awaiting bed availability Dank Villa MD [place] Section of Acute and Critical Care Surgery [facility] [place] Critical Care Performed by: Dank Villa MD [...] with the ICU team and other medical/business info consultant staff, making frequent assessments and decisions [...] from bedside monitors, laboratory results, and imaging S BULB SILVERER S BULB SILVERER * Rosey Fine MD - 06/20/2023 9:03 AM CST Vascular Surgery Daily Progress Patient Name/MRN: Eriberto Chau [id number] Treatment Team: Vascular Surgery- Attending: Faustino Herrera MD Today's Date: 06/20/2023 Room/Bed: [id number] Admit Date: 06/13/2023 Code Status: Full Code [...] tablet 1,000 mg 1,000 mg oral Q6H [facility] Dank Villa MD 1,000 mg at 06/20/23 [...] mg 100 mg oral BID Mateo Diaz TWENTY ONE DEALER 100 mg at 06/20/23 0816 enoxaparin (LOVENOX) syringe 40 mg 40 mg subcutaneous Daily-2100 Mateo Diaz TWENTY ONE DEALER 40 mg at 06/19/23 203 gabapentin (NEURONTIN) capsule 300 mg 300 mg oral TID Sreekanth Armstrong NP 300 mg at 06/20/23 0816 hydrALAZINE (APRESOLINE) tablet 100 mg 100 mg oral TID Mateo Diaz TWENTY ONE DEALER 100 mg at 06/20/23 0816 HYDROmorphone (DILAUDID) [...] mg 4 mg intravenous Q6H PRN Mateo iDaz NP 4 mg at 06/15/23 0841 oxyCODONE [...] bed. Rosey Fine MD Vascular Surgery Fellow [phone] Cosigned by Faustino Herrera MD at 06/21/2023 7:32 AM GLASS BULB SILVERER S BULB SILVERER S BULB SILVERER * Dank Villa MD - 06/19/2023 11:34 [...] nontender, active bowel sounds : voids Skin: [place], warm, dry Assessment /Plan NEURO: #Acute Pain [...] and 24h off Cleviprex Dank Villa MD [place] Section of Acute and Critical Care Surgery [facility] [place] Critical Care Performed by: Dank Villa MD [...] with the ICU team and other medical/business info consultant staff, making frequent assessments and decisions [...] from bedside monitors, laboratory results, and imaging S BULB SILVERER * Guerrero Dempsey MD - 06/19/2023 9:52 AM CST Vascular Surgery Daily Progress Patient Name/MRN: Eriberto Chau [id number] Treatment Team: Vascular Surgery- Attending: Faustino Herrera MD Today's Date: 06/19/2023 Room/Bed: [id number] Admit Date: 06/13/2023 Code Status: Full Code Events Over Last 24 Hours: Clevidipne gtt weaned off this morning Patient resting comfortably No fever/chills, WBC 10 (11) Allergies Allergen Reactions Amoxicillin Hives Current Facility-Administered Medications Medication Dose Route Frequency Provider Last Rate Last Admin acetaminophen (TYLENOL) tablet 1,000 mg 1,000 mg oral Q6H [facility] Dank Villa MD 1,000 mg at 06/19/23 [...] oral BID with meals (bkfst, dinner) Cristobal oCte MD 37.5 mg at 06/19/23 0816 clevidipine [...] 100 mg 100 mg oral TID Mateo iDaz NP 100 mg at 06/19/23 0816 HYDROmorphone [...] Negative ABO Rh A Positive Assessment/Plan Eriberto Chau is a 33 y.o. [...] Faustino Herrera MD at 06/20/2023 7:33 AM GLASS BULB SILVERER S BULB SILVERER S BULB SILVERER * Dank Villa MD - 06/18/2023 11:38 [...] nontender, active bowel sounds : voids Skin: [place], warm, dry Assessment /Plan NEURO: #Acute Pain [...] and Critical Care Surgery [facility] [place] Critical Care Performed by: Dank Villa MD [...] with the ICU team and other medical/business info consultant staff, making frequent assessments and decisions [...] from bedside monitors, laboratory results, and imaging S BULB SILVERER * Joaquín Abarca MD - 06/18/2023 8:00 [...] right arm levels are improved now in xmm161u and 140s. Recommend consideration for adjustment of medications as follows. 1. Add spironolactone 25 mg a day 2. Consider adding clonidine 0.1 mg twice a day Dissection of aorta, unspecified portion of aorta (HCC) Assessment & Plan Aortic imaging stable on recent CT scan. Continue blood pressure control. S BULB SILVERER * Rosey Fine MD - 06/17/2023 5:49 PM CST Vascular Surgery Daily Progress Patient Name/MRN: Eriberto Chau [id number] Treatment Team: Vascular Surgery- Attending: Faustino Herrera MD Today's Date: 06/17/2023 Room/Bed: [id number] Admit Date: 06/13/2023 Code Status: Full Code [...] Chloride 30 mL intravenous PRN Mateo Diaz, TWENTY ONE DEALER 30 mL at 06/17/23 0129 carvediloL (COREG) tablet 37.5 mg 37.5 mg oral BID with meals (bkfst, dinner) Cristobal Cote MD 37.5 mg at 06/17/23 1717 cefepime (MAXIPIME) 2,000 mg/20 mL in sterile water (premix) 2,000 mg 2,000 mg intravenous Q8H [facility]USAN Mateo Diaz, TWENTY ONE DEALER 240 mL/hr at 06/17/23 1337 2,000 mg [...] mg 100 mg oral TID Mateo Diaz TWENTY ONE DEALER 100 mg at 06/17/23 1510 HYDROmorphone (DILAUDID) [...] available. Rosey Fine MD Vascular Surgery Fellow [phone] Cosigned by Faustino Herrera MD at 06/17/2023 7:49 PM GLASS BULB SILVERER S BULB SILVERER S BULB SILVERER S BULB SILVERER * Christina Landa, PT - 06/17/2023 3:27 PM CST Physical Therapy 06/17/23 8836 General PT Missed Visit Reason Other (comment) (SBP remains elevated, unable to participate in PT interventions) Recommendation/Plan PT Frequency during current admission Monitor status PT - Next Appointment 06/20/23 S BULB SILVERER * Aman Mina MD - 06/17/2023 2:48 [...] as an additional agent. Aman Mina MD Blood Bank Order Control Clerk 2:48 PM 06/17/23 Cosigned by Joaquín Abarca MD at 06/18/2023 7:56 AM GLASS BULB SILVERER S BULB SILVERER S BULB SILVERER Associated attestation - Joaquín Abarca MD - 06/18/2023 7:56 AM GLASS BULB SILVERER I have seen and examined the patient on 06/17/23. I agree with the findings and plan of care as documented in the resident's/fellow's note.. Cardiology attending attestation note: Joaquín Abarca MD. I have seen examined the patient with the machine plate stacker on June 17, 2023. I saw him [...] of blood pressure control. Joaquín Abarca MD. shop firer/fireman * Kristine Underwood, TWENTY ONE DEALER - 06/17/2023 6:58 AM CSTAssociated Order(s): Critical [...] nontender, active bowel sounds : voids Skin: [place], warm, dry Laboratory data: Recent Labs Lab [...] with the ICU team and other medical/business info consultant staff, making frequent assessments and decisions [...] Mehul Brooks MD at 06/25/2023 7:31 AM GLASS BULB SILVERER S BULB SILVERER S BULB SILVERER * Deniz Ireland PA - 06/16/2023 6:40 [...] renal doppler NL, esmolol & cardene infusions, rbyant placement 06/05: TEVAR: L groin access, placed [...] Continue Cefe/Vanc (06/13-), trend vanc trough; has BRIM STITCHER penetration - f/u MRI completed; no acute [...] with the patient's team and other medical/business info consultant staff. This time was in addition [...] Mehul Brooks MD at 06/17/2023 1:46 PM GLASS BULB SILVERER S BULB SILVERER S BULB SILVERER * Rosey Fine MD - 06/16/2023 7:57 AM CST Vascular Surgery Daily Progress Patient Name/MRN: Eriberto Chau [id number] Treatment Team: Vascular Surgery- Attending: Faustino Herrera MD Today's Date: 06/16/2023 Room/Bed: [id number] Admit Date: 06/13/2023 Code Status: Full Code Events Over Last 24 Hours: No acute events overnight. SBP controlled this morning. Allergies Allergen Reactions Amoxicillin Hives Current Facility-Administered Medications Medication Dose Route Frequency Provider Last Rate Last Admin acetaminophen (TYLENOL) tablet 1,000 mg 1,000 mg oral Q6H Mateo Campo TWENTY ONE DEALER 1,000 mg at 06/16/23 0552 amLODIPine (NORVASC) tablet 10 mg 10 mg oral Daily Sreekanth Armstrong NP 10 mg at 06/15/23 0840 bisacodyL (DULCOLAX) suppository 10 mg 10 mg rectal Once Sreekanth Armstrong NP Carrier Fluids for Secondary Infusion - 0.9% Sodium Chloride 30 mL intravenous PRN Mateo Diaz TWENTY ONE DEALER 30 mL at 06/14/23 2153 carvediloL (COREG) [...] capsule 100 mg 100 mg oral BID aMteo Diaz TWENTY ONE DEALER 100 mg at 06/15/232029 enoxaparin (LOVENOX) syringe [...] mg 100 mg oral TID Mateo Diaz TWENTY ONE DEALER 100 mg at 06/15/232029 HYDROmorphone (DILAUDID) injection [...] and Vascular Surgery teams - Abx with BRIM STITCHER penetration - Continue impulse control in ICU for now - Diet as tolerated - No activity restrictions, can be OOB to chair and ambulate with assist as tolerated Could come to 7500 [address]U if bed available. Rosey Fine MD Vascular Surgery Fellow [phone] Cosigned by Faustino Herrera MD at 06/17/2023 1:01 PM GLASS BULB SILVERER S BULB SILVERER S BULB SILVERER Associated attestation - Faustino Herrera MD - 06/17/2023 1:01 PM GLASS BULB SILVERER I have seen and examined the patient [...] with the ICU team and other medical/business info consultant staff, making frequent assessments and decisions [...] Mehul Brooks MD at 06/17/2023 1:45 PM GLASS BULB SILVERER S BULB SILVERER S BULB SILVERER * Deniz Ireland PA - 06/15/2023 9:04 [...] Continue Cefe/Vanc (06/13-), trend vanc trough; has BRIM STITCHER penetration - f/u MRI complete spine per ID recs; ordered 06/15. -ID following ICU Care to Include: Restraints: n/a DVT prophylaxis: SCDs, lovenox QD PUD prophylaxis: n/a. Nutrition: see above Bowel regimen: Docusate, Miralax, &Senna Physical therapy/Activity: OOB/PT when able to participate Drains: n/a Goals of care: Full code Resolved: Deniz Ireland PA-C Updates: Critical Care Performed by: Deniz [...] with the ICU team and other medical/business info consultant staff, making frequent assessments and decisions [...] Mehul Brooks MD at 06/17/2023 1:46 PM GLASS BULB SILVERER S BULB SILVERER S BULB SILVERER * Christina Landa, PT - 06/15/2023 1:18 PM CST Physical Therapy 06/15/23 1317 General PT Missed Visit Reason Other (comment) (unable to maintain SBP within parameters.) Recommendation/Plan PT Frequency during current admission Monitor status PT - Next Appointment 06/16/23 S BULB SILVERER * Rosey Fine MD - 06/15/2023 9:38 AM CST Vascular Surgery Daily Progress Patient Name/MRN: Eriberto Chau [id number] Treatment Team: Vascular Surgery- Attending: Faustino Herrera MD Today's Date: 06/15/2023 Room/Bed: [id number] Admit Date: 06/13/2023 Code Status: Full Code [...] Chloride 30 mL intravenous PRN Mateo Diaz TWENTY ONE DEALER 30 mL at 06/14/232152 carvediloL (COREG) tablet [...] mg 100 mg oral BID Mateo Diaz, TWENTY ONE DEALER 100 mg at 06/14/232120 enoxaparin (LOVENOX) syringe 40 mg 40 mg subcutaneous Daily-2100 Mateo Diaz TWENTY ONE DEALER 40 mg at 06/14/232121 esmolol in 0.9% sodium chloride (BREVIBLOC) 2,500 mg/250 mL (10 mg/mL) infusion (premix) 0-300 mcg/kg/min intravenous Titrated Sreekanth Armstrong NP 175.5 mL/hr at 06/15/23 0900 300 mcg/kg/min at 06/15/23 0900 gabapentin (NEURONTIN) capsule 300 mg 300 mg oral TID Sreekanth Armstrong NP 300 mg at 06/15/23 0840 hydrALAZINE (APRESOLINE) tablet 100 mg 100 mg oral TID Mateo Diaz, TWENTY ONE DEALER 100 mg at 06/15/23 0841 HYDROmorphone (DILAUDID) injection 1 mg 1 mg intravenous Q2H PRN Dalton Baker MD 1 mg at 06/15/23 0751 labetaloL (NORMODYNE,TRANDATE) injection 20 mg 20 mg intravenous Q4H PRN Akash Spears MD 20 mg at 06/14/23 194 Lactated Ringer's (LR) infusion 10 mL/hr intravenous Continuous Mateo Diaz TWENTY ONE DEALER Stopped at 06/13/23 211 methocarbamoL (ROBAXIN) tablet [...] and Vascular Surgery teams - Abx with BRIM STITCHER penetration - Continue impulse control in ICU for now - Diet as tolerated - No activity restrictions, can be OOB to chair and ambulate with assist as tolerated Rosey Fine MD Vascular Surgery Fellow [phone] Cosigned by Faustino Herrera MD at 06/15/2023 9:51 AM GLASS BULB SILVERER S BULB SILVERER S BULB SILVERER * Sreekanth Armstrong NP - 06/15/2023 7:15 [...] with the ICU team and other medical/business info consultant staff, making frequent assessments and decisions [...] Mehul Brooks MD at 06/17/2023 1:45 PM GLASS BULB SILVERER S BULB SILVERER S BULB SILVERER * Su Lu NP - 06/14/2023 7:02 [...] with the ICU team and other medical/business info consultant staff, making frequent assessments and decisions [...] Mehul Brooks MD at 06/15/2023 8:28 AM GLASS BULB SILVERER S BULB SILVERER S BULB SILVERER * Dc Lopez OT - 06/14/2023 9:55 AM CST Occupational Therapy 06/14/23 0900 General OT Missed Visit Reason (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 MAP currently at 88 outside of SBP goal of 120-140) S BULB SILVERER S BULB SILVERER * Rosey Fine MD - 06/14/2023 8:43 AM CST Vascular Surgery Daily Progress Patient Name/MRN: Eriberto Chau [id number] Treatment Team: Vascular Surgery- Attending: Faustino Herrera MD Today's Date: 06/14/2023 Room/Bed: [id number] Admit Date: 06/13/2023 Code Status: Prior Events [...] mg 1,000 mg oral Q6H Mateo Campo, TWENTY ONE DEALER 1,000 mg at 06/14/23526 Carrier Fluids for Secondary Infusion - 0.9% Sodium Chloride 30 mL intravenous PRN Mateo Diaz, TWENTY ONE DEALER carvediloL (COREG) tablet 25 mg 25 mg oral BID with meals (bkfst, dinner) Jae Toledo MD 25 mg at 06/14/23 0719 cefepime (MAXIPIME) 2,000 mg/20 mL in sterile water (premix) 2,000 mg 2,000 mg intravenous Q8H SUSAN Mateo Diaz, TWENTY ONE DEALER 240 mL/hr at 06/14/23 05 2,000 mg at 06/14/23 05 clevidipine (CLEVIPREX) 50 mg/100 mL (0.5 mg/mL) (premix) 0-32 mg/hr intravenous Titrated Mateo Diaz [employer]ENT[employer] ONE DEALER 6 mL/hr at 06/14/23 0700 3 mg/hr at 06/14/23 0700 docusate sodium (COLACE) capsule 100 mg 100 mg oral BID Mateo Diaz, TWENTY ONE DEALER 100 mg at 06/13/232038 Or docusate (COLACE) 10 mg/mL oral liquid 100 mg 100 mg feeding tube BID Mateo Diaz, TWENTY ONE DEALER enoxaparin (LOVENOX) syringe 40 mg 40 mg subcutaneous Daily-2100 Mateo Diaz [employer]ENTY ONE DEALER 40 mg at 06/13/232038 esmolol in 0.9% [...] PRN Dalton Baker MD 1 mg at 06/14/23 0757 labetaloL [...] 8.8 mg feeding tube BID Mateo Diaz, TWENTY ONE DEALER sodium chloride 0.9% solution 3-12 mL/hr intra-catheter Continuous Mateo Diaz NP 3 mL/hr at 06/14/23 0700 3 mL/hr at 06/14/23 0700 vancomycin 1500 mg/515 mL in sodium chloride 0.9% (premix) 1,500 mg 15 mg/kg intravenous Q8H Mateo Diaz, TWENTY ONE DEALER 1,500 mg at 06/14/23 0200 Objective Vitals: [...] tolerated Rosey Fine MD Vascular Surgery Fellow [phone] Cosigned by Faustino Herrera MD at 06/15/2023 9:51 AM GLASS BULB SILVERER S BULB SILVERER S BULB SILVERER * Guillermina Guillen - 06/14/2023 8:22 AM CST Physical Therapy 06/14/23 0800 General PT Missed Visit Reason Other (comment) (PT deferred with pending discussion with CTS for possible open repair for pseudoaneurysm at left fem artery access site.) Cosigned by Rose Todd, PT at 06/14/2023 2:16 PM GLASS BULB SILVERER S BULB SILVERER S BULB SILVERER * Sreekanth Armstrong NP - 06/14/2023 7:05 [...] with the ICU team and other medical/business info consultant staff, making frequent assessments and decisions [...] Mehul Brooks MD at 06/15/2023 8:25 AM GLASS BULB SILVERER S BULB SILVERER S BULB SILVERER * Ayse Macias NP - 06/13/2023 10:43 [...] with the ICU team and other medical/business info consultant staff, making frequent assessments and decisions [...] Mehul Brooks MD at 06/15/2023 8:25 AM GLASS BULB SILVERER S BULB SILVERER S BULB SILVERER documented in this encounter H&P Notes * [...] 0-300 mcg/kg/min, Last Rate: 50 mcg/kg/min (06/13/23 9785) niCARdipine, 0-2.5 mcg/kg/min, Last Rate: Stopped (06/13/23 [...] with the ICU team and other medical/business info consultant staff, making frequent assessments and decisions [...] Mehul Brooks MD at 06/15/2023 8:26 AM GLASS BULB SILVERER S BULB SILVERER S BULB SILVERER documented in this encounter Procedure Notes * Sreekanth Armstrong NP - 06/14/2023 1:52 PM CSTAssociated Order(s): Arterial Line Insertion Post-Procedure Diagnose(s): Infrarenal abdominal aortic aneurysm, without rupture (HCC) Arterial Line Insertion Date/Time: 06/14/2023 1:52 PM Performed by: Sreekanth Armstrong NP Authorized by: Sreekanth Armstrong NP [place] Protocol: RN Notified of Procedure: yes Patient's [...] for transporting specimen(s) to lab determined: n/a S BULB SILVERER documented in this encounter Consult Notes * [...] bowel or bladder incontinence. 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 [...] mg 1,000 mg oral Q6H Mateo Campo [employer]ENT[employer] ONE DEALER 1,000 mg at 06/15/23 1114 amLODIPine (NORVASC) tablet 10 mg 10 mg oral Daily Sreekanth Armstrong NP 10 mg at 06/15/23 0840 Carrier Fluids for Secondary Infusion - 0.9% Sodium Chloride 30 mL intravenous PRN Mateo Diaz [employer] ONE DEALER 30 mL at 06/14/23 2153 carvediloL (COREG) tablet 37.5 mg 37.5 mg oral BID with meals (bkfst, dinner) Cristobal Cote MD 37.5 mg at 06/15/23 0840 cefepime (MAXIPIME) 2,000 mg/20 mL in sterile water (premix) 2,000 mg 2,000 mg intravenous Q8H Mateo aCmpo [employer]ENT[employer] ONE DEALER 240 mL/hr at 06/15/23 1306 2,000 mg at 06/15/23 1306 clevidipine (CLEVIPREX) 50 mg/100 mL (0.5 mg/mL) (premix) 0-32 mg/hr intravenous Titrated Mateo Diaz [employer]ENT[employer] ONE DEALER 48 mL/hr at 06/15/23 1320 24 mg/hr at 06/15/23 1320 docusate sodium (COLACE) capsule 100 mg 100 mg oral BID Mateo Diaz, TWENTY ONE DEALER 100 mg at 06/14/23 212 enoxaparin (LOVENOX) syringe 40 mg 40 mg subcutaneous Daily-2100 Mateo Diaz [employer]ENT[employer] ONE DEALER 40 mg at 06/14/232121 [Held by Provider] esmolol in 0.9% sodium chloride (BREVIBLOC) 2,500 mg/250 mL (10 mg/mL) infusion (premix) 0-300 mcg/kg/min intravenous Titrated Sreekanth Armstrong NP Stopped at 06/15/23 0952 gabapentin (NEURONTIN) capsule 300 mg 300 mg oral TID Sreekanth Armstrong NP 300 mg at 06/15/23 0840 hydrALAZINE (APRESOLINE) tablet 100 mg 100 mg oral TID Mateo Diaz [employer]ENTY ONE DEALER 100 mg at 06/15/23 0841 HYDROmorphone (DILAUDID) injection 1 mg 1 mg intravenous Q2H PRN Dalton Baker MD 1 mg at 06/15/23 1317 labetaloL (NORMODYNE,TRANDATE) injection 20 mg 20 mg intravenous Q4H PRN Akash Spears MD 20 mg at 06/15/23 1020 Lactated Ringer's (LR) infusion 10 mL/hr intravenous Continuous Mateo Diaz [employer] ONE DEALER Stopped at 06/13/23 211 methocarbamoL (ROBAXIN) tablet 750 mg 750 mg oral QID Hortensia Guy MD 750 mg at 06/15/23 1114 ondansetron (ZOFRAN) injection 4 mg 4 mg intravenous Q6H PRN Mateo Diaz TWENTY ONE DEALER 4 mg at 06/15/23 0841 oxyCODONE (ROXICODONE) tablet 10 mg 10 mg oral Q4H PRN Cristobal Cote MD 10 mg at 06/15/23 1112 polyethylene glycol (MIRALAX) packet 17 g 17 g oral Daily Mateo Diaz, TWENTY ONE DEALER QUEtiapine (SEROquel) tablet 50 mg 50 mg oral Nightly Sreekanth Armstrong NP senna (SENOKOT) tablet 1 tablet 1 tablet oral BID Mateo Diaz TWENTY ONE DEALER 1 tablet at 06/14/23 2121 sodium chloride 0.9% solution 3-12 mL/hr intra-catheter Continuous Mateo Diaz NP 3 mL/hr at 06/15/23 1300 3 mL/hr at 06/15/23 1300 vancomycin 1500 mg/515 mL in sodium chloride 0.9% (premix) 1,500 mg 15 mg/kg intravenous Q8H Mateo Diaz, TWENTY ONE DEALER 1,500 mg at 06/15/23 0904 No current [facility]-ordered outpatient medications on file. Anti-infectives (From [...] HIV Screen: Lab Results Component Value Date [id number] Nonreactive 06/14/2023 CD4:No results found for: CD4ABS , CD4PCT Common Virologic Results: No results found for: LFE3HGD , CD4ABS , CD4PCT , NUCLEOSRT , [...] Lateral leads Confirmed by ADAM VALVERDE M.D ([id number]) on 2023 11:47:49 AM Echo:Results for orders placed during the hospital encounter of 05/01/23 Transthoracic Echo (TTE) With Bubble Study Narrative Patient name: Eriberto Chau Date of test: 05/05/2023 Type of test: Limited TTE [facility] #: 0 Date of : 1990 (M) Track Template Maker: Ellen Ely RDCS Referring Physician: FAUSTINO HERRERA MD Contrast Agent: Agitated Saline Bubble Study Performed Contrast Administered by: Oralia FRASER Supervised/Interpreted by: Trupti Ulloa MD Diagnosis: Location: [facility] Reason for test: Hypoxia, c/f cardiac shunt [...] 2=Hypo 3=Akinetic 4=Dyskin./Aneurysm 0=Not visualized) Parasternal Long [place]:MAS=1 BAS=1 MIL=1 GARO=1 Parasternal Short [place]:MAS=1 MIS=1 W[place]=1 MIL=1 MAL=1 MA=1 Apical 4 Chambers:=1 MIS=1 BIS=1 BAL=1 MAL=1 AL=1 AC=1 Apical 2 Chambers:AI=1 W[place]=1 BI=1 BA=1 MA=1 AA=1 AC=1 LV Global [...] MD By signing this report, the attending agents' records clerk certifies that he or she has personally [...] and further imaging - Current antibiotics provide BRIM STITCHER penetration - Please obtain complete spine MRI. [...] Ramirez MD PhD at 06/15/2023 5:13 PM GLASS BULB SILVERER S BULB SILVERER S BULB SILVERER Associated attestation - Cat Ramirez MD PhD - 06/15/2023 5:13 PM GLASS BULB SILVERER I have seen and examined the patient [...] 1,000 mg, oral, Q6H SUSAN, Mateo Diaz, TWENTY ONE DEALER, 1,000 mg at06/14/23 110 Carrier Fluids for [...] Sara Vergara MD at 06/16/2023 8:32 AM GLASS BULB SILVERER S BULB SILVERER S BULB SILVERER S BULB SILVERER Associated attestation - Sara Vregara MD - 06/16/2023 8:32 AM GLASS BULB SILVERER I have seen and examined the patient on 06/14/2023. I agree with the findings and plan of care as documented in the resident's/fellow's note.. Plan for continued observation for now. Sara Vergara MD * Emeka Yates MD - 06/13/2023 3:13 PM CSTAssociated Order(s): IP CONSULT TO VASCULAR SURGERY Vascular Surgery Consultation Patient Name/MRN: Eriberto Chau [id number] Reason for Consult: Please do not call, already spoke with them. Back pain Attending: Faustino Herrera MD Today's Date: 06/13/2023 Admitting Service: Vascular Admitting location: [address]/[facility] Admit Date: 06/13/2023 Code Status: Prior CC: [...] between 120-140 - Recommend starting abx with BRIM STITCHER penetration - q1h NV checks - Will discuss possible open repair with CT surgery team - F/u CT spine with recons Emeka Yates MD Resident Physician Vascular Surgery Vascular Consult Vascular Inpatient Floor V[facility] Outpatient [facility] Cosigned by Faustino Herrera MD at 06/13/2023 3:55 PM GLASS BULB SILVERER S BULB SILVERER S BULB SILVERER Associated attestation - Faustino Herrera MD - 06/13/2023 3:55 PM GLASS BULB SILVERER I have seen and examined the patient on 06/13/23. I agree with the findings and plan of care as documented in the resident's/fellow's note.. documented in this encounter Nursing Notes * Angelica Costa RN - 06/24/2023 7:58 PM CST [id number] Alert and appropriate. Medicated for pain. Up at bedside. Tolerating diet. Void per urinal. See labs, flowhseets. S BULB SILVERER * Dalton Rubio RN - 06/16/2023 3:38 AM CST Patient was given 1 mg of Lorazepam on 06/16 at 0338. 1 mg was wasted. Cosigned by Hill Hopper, BRIA at 06/24/2023 1:29 AM GLASS BULB SILVERER S BULB SILVERER S BULB SILVERER * Dalton Rubio RN - 06/15/2023 8:52 PM CST The [place] Swallow Protocol was administered to the patient [...] by speech-language pathology. The patient passed the [place] Swallow Screen. S BULB SILVERER documented in this encounter ED Notes * [...] status post recent vascular stenting (discharged from [facility] within the last several days) who presents [...] last. By: Jae Toledo MD Time: 06/13 3098 Comment: Patient has multiple markers of inflammation. [...] Guerrero De Los Santos MD 06/15/23 1835 S BULB SILVERER S BULB SILVERER * Nicole Tolbert RN - 06/13/2023 12:39 PM CST Bed: [facility] Expected date: Expected time: Means of arrival: Car Comments: triage Nicole Tolbert RN 06/13/23 1239 S BULB SILVERER * Ana Glass RN - 06/13/2023 12:27 PM CST Pt had surgery for AAA on jun 05 Pt having hypertension for last 2 days pt states he has been taking b/p meds pt denies any chest pain, sob, headache, dizziness S BULB SILVERER documented in this encounter Miscellaneous Notes * [...] Emotional support given. No acute changes overnight. S BULB SILVERER * Assessment & Plan Note - Bettie Wheeler NP - 06/24/2023 10:40 AM CSTAssociated Problem(s): Pseudoaneurysm following procedure (CMS/HCC) (HCC) - s/p vascular access - Q4 N/V checks - no current surgical intervention - no activity restrictions, OOB/ ambulate S BULB SILVERER * Assessment & Plan Note - Bettie [...] in false lumen perfusion - non operative S BULB SILVERER S BULB SILVERER * Assessment & Plan Note - Bettie Wheeler NP - 06/24/2023 10:32 AM CSTAssociated Problem(s): Other chronic pain - CT without discitis or osteomyelitis on 06/13 - MRI 06/13 also without discitis or osteomyelitis - no narcotic pain medications are required from vascular surgery perspective - Consult pain management team S BULB SILVERER S BULB SILVERER * Assessment & Plan Note - Bettie Wheeler NP - 06/24/2023 10:28 AM CSTAssociated Problem(s): HTN (hypertension) Difficult to control Htn. Dr. Abarca following - Continue amlodipine, lisinopril, coreg, hydralazine - SBP goal 120-140 - VS q 4 hrs and prn S BULB SILVERER S BULB SILVERER * Plan of Care - Roge Tolbert [...] for the Shift: Pain control, VSS Summary: S BULB SILVERER * Plan of Ann - Colt Rene [...] VSS, I&O, Sleep hygiene, and pain control. S BULB SILVERER * Plan of Cayla Box RN - [...] intake and output will improve Outcome: Progressing S BULB SILVERER * ACP (Advance Care Planning) - Linda Ford MSW - 06/21/2023 2:19 PM CST Advance Care Planning Advance Care Planning Conversation The patient and/or family consented to a voluntary Advance Care Planning conversation. Individuals present for the conversation: patient and care cylinder steamer(s): CARIE Advance Directive: No On file: No Power of Faculty I On Call Medical Assistant Name: n/a Relationship: n/a Phone Number: n/a Summary of the conversation: Social work acknowledged social work consult for Advance care planning. Social work met with patient at bedside and provided information on AD/DPOA. Social work reported notary services are available. Patient expressed understanding and declined AD/DPOA assistance at this time. Patient verbally designated mother, Meron Blankenship ([phone]) as surrogate decision maker. Outcome of the conversation and documents completed (select all that apply): provided information about Advance Directives and Durable Power of Faculty I On Call Medical Assistant documentation The services provided in this conversation and described in this note are non- billable and to be used for ongoing clinical care only. Linda Ford LMSW S BULB SILVERER * Assessment & Plan Note - Joaquín Abarca MD - 06/21/2023 7:57 AM GLASS BULB SILVERER Associated Problem(s): HTN (hypertension) BP stable at present. Recommend discontinuation of the diltiazem and continue amlodipine (as opposed to giving two calcium channel blockers) S BULB SILVERER * Subjective & Objective - Joaquín Abarca MD - 06/21/2023 7:55 AM GLASS BULB SILVERER Cardiology Daily Progress Note Patient Name: Eriberto [...] 0.3 Telemetry my personal review: sinus rhythm S BULB SILVERER * Plan of Care - Priscilla Forbes [...] intake and output will improve Outcome: Progressing S BULB SILVERER * Assessment & Plan Note - Joaquín Abarca MD - 06/20/2023 8:33 PM GLASS BULB SILVERER Associated Problem(s): HTN (hypertension) BP improving. Recommend continue medications and follow up bp, except recommend discontinuation of the diltiazem as he is already on a calcium channel louie, amlodipine S BULB SILVERER * Subjective & Objective - Joaquín Abarca MD - 06/20/2023 8:30 PM GLASS BULB SILVERER Cardiology/Aortopathy Consult Daily Progress Note Patient Name: [...] Telemetry my personal review: sinus rhythm. : S BULB SILVERER * Plan of Care - Martita Martinez [...] Ability to cope will improve Outcome: Progressing S BULB SILVERER * Plan of Care - Rafiq Lazcano RN - 06/19/2023 4:43 PM GLASS BULB SILVERER Goals: Clinical Goals for the Shift: Maintain BP goals & optimize pain control Summary: Pt's BP controlled with PO meds throughout the day. Pt still requiring frequent PRN analgesics for pain management. S BULB SILVERER * Plan of Care - Martita Martinez [...] therapeutic regimen will improve 06/18/20232030 by Martita Matrinez RN Outcome: Progressing 06/18/2023 0644 by Martita [...] Summary: all care per chart + mar S BULB SILVERER * Plan of Care - Rafiq Lazcano RN - 06/18/2023 6:23 PM GLASS BULB SILVERER Goals: Clinical Goals for the Shift: Maintain BP goals & optimize pain control Summary: Pt has maintain BP goals with clevidipine infusion OFF this afternoon. Pt continues to request pain medication for lumbar back pain. Pt reports relief when given. Pt sat up in chair today. Remains on room air. S BULB SILVERER * Assessment & Plan Note - Joaquín Abarca MD - 06/18/2023 8:00 AM GLASS BULB SILVERER Associated Problem(s): Dissection of aorta, unspecified portion of aorta (HCC) Aortic imaging stable on recent CT scan. Continue blood pressure control. S BULB SILVERER * Assessment & Plan Note - Joaquín Abarca MD - 06/18/2023 7:59 AM GLASS BULB SILVERER Associated Problem(s): HTN (hypertension) Patient with continued hypertension. Blood pressure in the right arm levels are improved now in [id number] and 140s. Recommend consideration for adjustment of medications as follows. 1. Add spironolactone 25 mg a day 2. Consider adding clonidine 0.1 mg twice a day S BULB SILVERER * Subjective & Objective - Joaquín Abarca MD - 06/18/2023 7:57 AM GLASS BULB SILVERER Cardiology Daily Progress Note Patient Name: Eriberto [...] function tests normal creatinine 0.84 potassium 4.3 S BULB SILVERER * Plan of Care - Martita Martinez [...] tolerate increased activity will improve Outcome: Progressing S BULB SILVERER * Plan of Care - Rafiq Lazcano RN - 06/17/2023 6:27 PM GLASS BULB SILVERER Goals: Clinical Goals for the Shift: Maintain BP goals & pt comfort Summary: Pt weaned off clevidipine infusion today. Titrating to cuff BP. Pt placed back room air. Pt was up to chair this afternoon. Pt still reporting back pain, but improved today with increased pain regimen. S BULB SILVERER * Plan of Care - Mateo Bertrand [...] Plan of care reviewed with the patient. S BULB SILVERER * Significant Event - Anil Sanchez MD [...] concerns. Anil Sanchez MD Critical Care Fellow S BULB SILVERER * Plan of Care - Roge Tolbert [...] the Shift: SBP 120-140, pain control Summary: S BULB SILVERER * Plan of Dalton Sharp RN - [...] mg of atavan. Pain is under control. 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 Race: White/ Sexual [...] Parent Life Partner Name/Contact Information: Geri Murilloa (SO/[phone]) Parent Name/Contact Information: Meron Blankenship (mother/[phone]) Other Family Member Name/Contact Information: Solange Ireland (mother of his children/[phone]) Do you have a Mormonism Preference or Affiliation?: Yes Preference/Affiliation : Bahai Are there any Mormonism Practices that are important to maintain while admitted?: No Do you have Cultural Factors that are important to you?: No (06/15/231511) Strengths, Assets, Liabilities and Stressors: Strengths, Assets, Liabilities, and Stressors Strengths (Must Choose Two): Assessment of patient optimism that change can occur, Managing surrounding demands and opportunities, Cultural/spiritual/sikh and community involvement, Exercising self- direction, Access [...] More than three times a week Attends Mormonism Services: More than 4 times per year [...] More than three times a week Attends Mormonism Services: More than 4 times per year [...] Patient was last admitted from 06/03/23-06/11/23 at [facility] for abdominal pain and discharged homewith no needs. Social work met with patient to discuss housing, utilities, food, transportation andsocial support. Patient lives with his SO Geri and their [address] children [address] [place] [address]. 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 He was able to utilize 20 hours of short term disability through his employer, however those benefits have now ended. He voiced concerns with bill paying for mortgage, food, and utilities. [facility] and food [facility]. Patient had been accepted to [facility] for mortgage assistance. Patient stated he has not received a phone call from them for assistance. Per [employer], they left two voicemails with patient's SO with no response. Social work reached back out to [facility] and provided them with patient's number as well as his SO number. Social work also reached back out to[employer], as they did not respond on previous admission. Social work will continue to assist asneeded. Patient does not have DPOA on file. Patient verbally appointed Meron Pattie (mother/[phone])to be his decision maker if he becomes [...] Charlson Comorbidity Index 1 Gardenia Resendiz LCSW S BULB SILVERER * Plan of Roge Paris RN - [...] sleep hygiene, pulm hygiene, pain control Summary: S BULB SILVERER * Plan of Care - Dalton Rubio [...] status is intact, pain is under control. S BULB SILVERER * Plan of Care - Roge Tolbert [...] for the Shift: Control hemodynamics,pain control,mobility Summary: S BULB SILVERER * Plan of Dalton Sharp RN - [...] for a few hours at about 0300. S BULB SILVERER * Plan of Care - Starla Bhatia RN - 06/13/2023 7:29 PM GLASS BULB SILVERER Goals: Summary: pt new admission to 8200 with Hypertension on esmolol and cleviprex gtts. Pt voices pain in back and at previous PCI site from last admission. Pt received 5mg oxy and tylenol for pain. Goalsgoing forward is to control b/p and pain. Monitor other vital signs. Provide comfort where able. S BULB SILVERER * ED Procedure Note - Torin Alas Jr., MD - 06/13/2023 4:41 PM GLASS BULB SILVERER Associated Order(s): Arterial line Procedure Arterial line Date/Time: 06/13/2023 4:41 PM Performed by: Torin Alas Jr., MD Authorized by: Nigel Mercado MD Spr[place] Protocol: RN Notified of Procedure: yes Informed [...] Nigel Mercado MD at 06/13/2023 8:36 PM GLASS BULB SILVERER S BULB SILVERER S BULB SILVERER Associated attestation - Nigel Mercado MD - 06/13/2023 8:36 PM GLASS BULB SILVERER I was present for the entire procedure * ED Re-evaluation Note - Torin Alas Jr., MD - 06/13/2023 2:57 PM GLASS BULB SILVERER ED Re-evaluation TRANSITION OF CARE: I, Torin [...] abscess. By: Jae Toledo MD Time: 06/13 2749 Comment: Spoke with 5600 ICU fellow. Will accept patient to their service By: Torin Alas Jr., MD Vaca, Roland Scott Jr., MD Resident 06/13/23 3574 S BULB SILVERER * ED Procedure Note - Guerrero De Los Santos MD - 06/13/2023 2:39 PM CSTAssociated Order(s): Critical Care Procedure Critical Care Performed by: Guerrero De Los Santos MD Authorized by: Guerrero De Los Santos MD Critical care provider [...] Guerrero De Los Santos MD 06/13/23 1447 S BULB SILVERER S BULB SILVERER * Plan of Care - Shirley Mixon [...] to Home Yes Were Presciptions Filled Yes S BULB SILVERER * ED Procedure Note - Jae Toledo MD - 06/13/2023 1:18 PM GLASS BULB SILVERER Associated Order(s): ECG 12 lead Procedure ECG [...] LVH is present. There is no STdeviation. [place] is leftward. Compared to previous, abnormal, but no significant ischemic changes compared to previous. Jae Toledo MD Resident 06/13/23 1322 Cosigned by Guerrero De Los Santos MD at 06/13/2023 1:24 PM GLASS BULB SILVERER S BULB SILVERER S BULB SILVERER Associated attestation - Guerrero De Los Santos MD - 06/13/2023 1:24 PM GLASS BULB SILVERER I have personally reviewed the tracing and the resident's interpretation. I agree with the findings. documented in this encounter Plan of Treatment Pending Results Name Type Priority Associated Diagnoses Date /Time Triglycerides Lab Routine 06/21/2023 4:01 AM GLASS BULB SILVERER Scheduled Orders Name Type Priority Associated Diagnoses Orde r Schedule Triglycerides Lab Routine Once for 1 Occurrences starting 06/21/2023 until 06/21/2023 documented as of this encounter Procedures Procedure Name Priority Date/Time Associated Diagnosis Comments CRITICAL CARE Routine 06/24/2023 10:19 AM GLASS BULB SILVERER Infrarenal abdominal aortic aneurysm, without rupture (HCC) EGFR Routine 06/23/2023 11:44 PM GLASS BULB SILVERER CBC WITHOUT DIFFERENTIAL Routine 2 024 11:44 PM GLASS BULB SILVERER PHOSPHORUS Routine 06/23/2023 11:44 PM GLASS BULB SILVERER MAGNESIUM Routine 06/23/2023 11:44 PM GLASS BULB SILVERER BASIC METABOLIC PANEL Routine 06/23/2023 11:44 PM GLASS BULB SILVERER CRITICAL CARE Routine 06/23/2023 9:36 AM GLASS BULB SILVERER Infrarenal abdominal aortic aneurysm, without rupture (HCC) EGFR Routine 06/23/2023 5:06 AM GLASS BULB SILVERER CBC WITHOUT DIFFERENTIAL Routine 024 5:06 AM GLASS BULB SILVERER PHOSPHORUS Routine 06/23/2023 5:06 AM [facility] [employer] MAGNESIUM Routine 06/23/2023 5:06 AM [employer] [employer] BASIC METABOLIC PANEL Routine 06/23/2023 5:06 AM [employer] CRITICAL CARE Routine 06/22/2023 11:30 AM [employer] Infrarenal abdominal aortic aneurysm, without rupture (HCC) EGFR Routine 06/22/2023 1:09 AM [employer] CBC WITHOUT DIFFERENTIAL Routine 024 1:09 AM [employer] PHOSPHORUS Routine 06/22/2023 1:09 AM [employer] MAGNESIUM Routine 06/22/2023 1:09 AM [employer] BASIC METABOLIC PANEL Routine 06/22/2023 1:09 AM [employer] HEMOGLOBIN AND HEMATOCRIT Routine 2023 11:20 AM [employer] CRITICAL CARE Routine 06/21/2023 9:52 AM [employer] Infrarenal abdominal aortic aneurysm, without rupture (HCC) EGFR Routine 06/21/2023 4:01 AM [employer] CBC WITHOUT DIFFERENTIAL Routine 024 4:01 AM [employer] TRIGLYCERIDES Routine 06/21/2023 4:01 AM [employer] PHOSPHORUS Routine 06/21/2023 4:01 AM [employer] MAGNESIUM Routine 06/21/2023 4:01 AM [employer] COMPREHENSIVE METABOLIC PANEL Routine 06/21/2023 4:01 AM [employer] CRITICAL CARE Routine 06/20/2023 10:00 AM [employer] Infrarenal abdominal aortic aneurysm, without rupture (HCC) RENIN ACTIVITY Routine 06/20/2023 2:34 AM [employer] EGFR Routine 06/20/2023 12:22 AM [employer] METANEPHRINES, FRACTIONATED FREE, BLOOD Routine 06/20/2023 12:22 AM [employer] ALDOSTERONE Routine 06/20/2023 12:22 AM [employer] DHEA-SULFATE Routine 06/20/2023 12:22 AM [employer] CBC WITHOUT DIFFERENTIAL Routine 024 12:22 AM [employer] PHOSPHORUS Routine 06/20/2023 12:22 AM [employer] MAGNESIUM Routine 06/20/2023 12:22 AM [employer] CORTISOL Timed 06/20/2023 12:22 AM [employer] COMPREHENSIVE METABOLIC PANEL Routine 06/20/2023 12:22 AM [employer] [employer] CRITICAL CARE Routine 06/19/2023 11:34 AM [employer] Infrarenal abdominal aortic aneurysm, without rupture (HCC) TYPE AND SCREEN Timed 06/18/2023 11:58 PM [employer] EGFR Routine 06/18/2023 11:52 PM [employer] CBC WITHOUT DIFFERENTIAL Routine 024 11:52 PM [employer] PHOSPHORUS Routine 06/18/2023 11:52 PM [employer] MAGNESIUM Routine 06/18/2023 11:52 PM [employer] COMPREHENSIVE METABOLIC PANEL Routine 06/18/2023 11:52 PM [employer] CRITICAL CARE Routine 06/18/2023 11:38 AM [employer] Infrarenal abdominal aortic aneurysm, without rupture (HCC) EGFR Routine 06/18/2023 3:04 AM [employer] CBC WITHOUT DIFFERENTIAL Routine 024 3:04 AM [employer] TRIGLYCERIDES Routine 06/18/2023 3:04 AM [employer] PHOSPHORUS Routine 06/18/2023 3:04 AM [employer] MAGNESIUM Routine 06/18/2023 3:04 AM [employer] COMPREHENSIVE METABOLIC PANEL Routine 06/18/2023 3:04 AM [employer] POCT GLUCOSE DEVICE Routine 06/17/2023 8 :55 AM [employer] CRITICAL CARE Routine 06/17/2023 6:58 AM [employer] Infrarenal abdominal aortic aneurysm, without rupture (HCC) POTASSIUM, WHOLE BLOOD STAT 4 5:51 AM [employer] EGFR Routine 06/17/2023 12:00 AM [employer] CBC WITHOUT DIFFERENTIAL Routine 024 12:00 AM [employer] PHOSPHORUS Routine 06/17/2023 12:00 AM [employer] MAGNESIUM Routine 06/17/2023 12:00 AM [employer] COMPREHENSIVE METABOLIC PANEL Routine 06/17/2023 12:00 AM [employer] POTASSIUM, WHOLE BLOOD STAT 4 8:47 PM [employer] XR CHEST 1 VIEW Timed 06/16/2023 7:29 PM [employer] CRITICAL CARE Routine 06/16/2023 6:40 PM [employer] Epistaxis POTASSIUM, WHOLE BLOOD Routine 4 10:35 AM [employer] VANCOMYCIN LEVEL TROUGH Timed 06/16/19 24 9:40 AM [employer] CRITICAL CARE Routine 06/16/2023 6:40 AM [employer] Infrarenal abdominal aortic aneurysm, without rupture (HCC) POTASSIUM, WHOLE BLOOD STAT 4 6:00 AM [employer] MRI SPINE TOTAL COMPLETE W WO CONTRAST IP Routine 06/16/2023 5:19 AM [employer] POTASSIUM, WHOLE BLOOD STAT 4 1:13 AM [employer] EGFR Routine 06/16/2023 12:00 AM [employer] CBC WITHOUT DIFFERENTIAL Routine 024 12:00 AM [employer] TRIGLYCERIDES Routine 06/16/2023 12:00 AM [employer] PHOSPHORUS Routine 06/16/2023 12:00 AM [employer] MAGNESIUM Routine 06/16/2023 12:00 AM [employer] COMPREHENSIVE METABOLIC PANEL Routine 06/16/2023 12:00 AM [employer] CRITICAL CARE Routine 06/15/2023 9:04 PM [employer] Dissection of aorta, unspecified portion of aorta (HCC) CRITICAL CARE Routine 06/15/2023 7:15 AM [employer] Infrarenal abdominal aortic aneurysm, without rupture (HCC) EGFR Routine 06/14/2023 8:31 PM [employer] CBC WITHOUT DIFFERENTIAL Routine 024 8:31 PM [employer] PHOSPHORUS Routine 06/14/2023 8:31 PM [employer] MAGNESIUM Routine 06/14/2023 8:31 PM [employer] COMPREHENSIVE METABOLIC PANEL Routine 06/14/2023 8:31 PM [employer] CRITICAL CARE Routine 06/14/2023 7:02 PM [employer] Infrarenal abdominal aortic aneurysm, without rupture (HCC) VANCOMYCIN LEVEL TROUGH Timed 06/14/19 24 5:51 PM [employer] [place] ARTL CATHJ/CANNULJ MNTR/TRANSFUSION SPX PRQ Routine 06/14/2023 1:52 PM [employer] Infrarenal abdominal aortic aneurysm, without rupture (HCC) HIV 1/2 ANTIBODY PLUS P24 ANTIGEN Routine 06/14/2023 11:08 AM [employer] CRITICAL CARE Routine 06/14/2023 7:05 AM [employer] Infrarenal abdominal aortic aneurysm, without rupture (HCC) EGFR Routine 06/14/2023 12:14 AM [employer] LACTATE, WHOLE BLOOD Routine 06/14/2023 12:14 AM [employer] CBC WITHOUT DIFFERENTIAL Routine 024 12:14 AM [employer] PHOSPHORUS Routine 06/14/2023 12:14 AM [employer] MAGNESIUM Routine 06/14/2023 12:14 AM [employer] COMPREHENSIVE METABOLIC PANEL Routine 06/14/2023 12:14 AM [employer] HISTOPLASMA ANTIGEN Routine 06/13/2023 1 1:13 PM [employer] CRITICAL CARE Routine 06/13/2023 10:43 PM [employer] Infrarenal abdominal aortic aneurysm, without rupture (HCC) MRI THORACIC SPINE WO CONTRAST ED 06/13/2023 10:43 PM [employer] POTASSIUM, WHOLE BLOOD Routine 7:11 PM [employer] ECG 12-LEAD STAT 06/13/2023 6:04 PM [employer] Q FEVER AB W REFLEX TO IMMUNOFLUORESCENCE Routine 06/13/2023 6:00 PM [employer] TROPONIN I HIGH-SENSITIVITY 6-HOUR Timed 06/13/2023 6:00 PM [employer] HISTOPLASMA ANTIBODY Routine 06/13/2023 6:00 PM [employer] BARTONELLA ANTIBODY PANEL Routine 2023 6:00 PM [employer] CRITICAL CARE Routine 06/13/2023 5:36 PM [employer] OXYCODONE CONFIRMATION, URINE Routine 06/13/2023 4:58 PM [employer] TROPONIN I HIGH-SENSITIVITY 4-HOUR Timed 06/13/2023 4:58 PM [employer] DRUGS OF ABUSE SCREEN, URINE WITH REFLEX CONFIRMATION Routine 06/13/2023 4:58 PM [employer] [place] ARTL CATHJ/CANNULJ MNTR/TRANSFUSION SPX PRQ Routine 06/13/2023 4:41 PM [employer] TROPONIN I HIGH-SENSITIVITY 2-HOUR Timed 06/13/2023 2:42 PM [employer] AK CRITICAL CARE ILL/INJURED PATIENT INIT 30-74 MIN Routine 06/13/2023 2:39 PM [employer] RESPIRATORY PATHOGEN PANEL Routine 06/13/2023 2:35 PM [employer] URINALYSIS AND REFLEX TO MICROSCOPIC AND CULTURE STAT 06/13/2023 2:07 PM [employer] URINALYSIS, MICROSCOPIC ONLY STAT 06/13/2023 2:07 PM [employer] XR CHEST 1 VIEW ED 06/13/2023 1:[address] [address] [address] RECON THORACIC AND LUMBAR SPINE W CONTRAST ED 06/13/2023 1:47 PM [employer] CTA CHEST ABDOMEN PELVIS ED 1:47 PM [employer] POCT CREATININE - DEVICE Routine 1:20 PM [employer] POCUS CARDIAC 06/13/2023 1:19 PM [employer] POCUS RETROPERITONEAL (AAA OR RENAL) 06/13/2023 1:18 PM [employer] ECG 12-LEAD STAT 06/13/2023 1:18 PM [employer] TROPONIN I HIGH-SENSITIVITY SERIES (BASELINE, 2HR, 4HR, 6HR) STAT 06/13/2023 1:07 PM [employer] EGFR STAT 06/13/2023 1:07 PM [employer] DIFFERENTIAL AUTO STAT 06/13/2023 1:0 7 PM [employer] CBC WITH AUTO DIFFERENTIAL STAT 06/13/2023 1:07 PM [employer] BLOOD CULTURE STAT 06/13/2023 1:07 PM [employer] BLOOD CULTURE STAT 06/13/2023 1:07 PM [employer] APTT STAT 06/13/2023 1:07 PM [employer] ERYTHROCYTE SEDIMENTATION RATE STAT 06/13/2023 1:07 PM [employer] PROTIME-INR STAT 06/13/2023 1:07 PM [employer] CRP (ACUTE PHASE) STAT 06/13/2023 1:0 7 PM [employer] CORTISOL Timed 06/13/2023 1:07 PM [employer] COMPREHENSIVE METABOLIC PANEL STAT 06/13/2023 1:07 PM [employer] documented in this encounter Results * Critical Care (06/24/2023 10:19 AM [employer]) Narrative Dank Villa MD - 06/24/2023 10:19 AM [employer] Dank Villa MD ? 06/24/2023 10:52 AM [...] with the ICU team and other medical/business info consultant staff, making frequent assessments and decisions [...] - Final * eGFR (06/23/2023 11:44 PM [employer]) [facility] eGFR >90 >=60 mL/min/1. 73 m2 [facility] Comment: Interpretive Data Reference Interval [...] reviewed 2021. Blood 06/23/2023 11:4 4 PM [employer] 06/24/2023 12:01 AM [employer] Dank Villa MD LAB BLOOD ORDERABLES Sally l Result [facility] Department [place] [address] * (ABNORMAL) Basic metabolic panel (06/23/2023 11:44 PM [employer]) Sodium 137 135 - 145 mmol/L [facility] Potassium, pl 4.1 3.3 - 4.9 mmol/L [facility] Chloride 102 97 - 110 mmol/L [facility] CO2 23 22 - 32 mmol/L [facility] Anion gap 12 2 - 15 mmol/L [facility] BUN 28(H) 6 - 25 mg/dL [facility] Creatinine 1.05 0.80 - 1.30 mg/dL [facility] Glucose 127 70 - 199 mg/dL [facility] Comment: Interpretive Data Fasting glucose [...] 2022. Calcium 9.4 8.5 - 10.3 mg/dL [facility] Blood 06/23/2023 11:4 4 PM [employer] 06/24/2023 12:01 AM [employer] us Dank Villa MD LAB BLOOD ORDERABLES Sally l Result Performing Organization Address [facility]/ZIP Co de Phone Number [facility] Department [place] [address] * Phosphorus (06/23/2023 11:44 PM [employer]) Phosphorus, pl 4.4 2.3 - 4.5 mg/dL [facility] Blood 06/23/2023 11:4 4 PM [employer] 06/24/2023 12:01 AM [employer] Ayse Macias [employer] LAB BLOOD ORDERABLES Final Result Performing Organization Address City/[facility]/ZIP Co de Phone Number [facility] [place] [address] * Magnesium (06/23/2023 11:44 PM [employer]) [facility] Magnesium 2.2 1.4 - 2.5 mg/dL [facility] Blood 06/23/2023 11:4 4 PM [employer] 06/24/2023 12:01 AM [employer] Ayse Macias [employer] LAB BLOOD ORDERABLES Final Result Performing Organization Address [facility] de Phone Number [facility] [place] [address] * (ABNORMAL) CBC without differential (06/23/2023 11:44 PM [employer]) [facility] WBC 10.3(H) 3.8 - 9.9 K/cumm [facility] Hgb 9.3(L) 13.0 - 17.5 g/dL [facility] Hct 29.3(L) 38.9 - 50.3 % [facility] Plt 389 150 - 400 K/cumm [facility] MPV 9.3 9.1 - 12.3 fL [facility] RBC 3.34(L) 4.30 - 5.80 M/cumm [facility] MCV 87.7 81.3 - 96.4 fL [facility] MCH 27.8 27.1 - 33.3 pg [facility] MCHC 31.7(L) 32.3 - 35.7 g/dL [facility] RDW CV 13.8 11.1 - 14.9 % [facility] RDW SD 44.2 35.7 - 48.1 fL [facility] NRBC abs 0.00 0.00 - 0.01 K/cumm [facility] Blood 06/23/2023 11:4 4 PM [employer] 06/24/2023 1:34 AM [employer] Ayse Macias [employer] LAB BLOOD ORDERABLES Final Result [facility] Department [place] [address] * Critical Care (06/23/2023 9:36 AM [employer]) Narrative Dank Villa MD - 06/23/2023 9:36 AM [employer] Dank Villa MD ? 06/23/2023 ??9:51 AM [...] with the ICU team and other medical/business info consultant staff, making frequent assessments and decisions [...] Final Result * eGFR (06/23/2023 5:06 AM [employer]) [facility] eGFR >90 >=60 mL/min/1. 73 m2 [facility] Comment: Interpretive Data Reference Interval [...] last reviewed 2021. Blood 06/23/2023 5:06 AM [employer] 06/23/2023 5:20 AM [employer] Dank Villa MD LAB BLOOD ORDERABLES Sally zhang Result Performing Organization Address City/State/[facility] Co de Phone Number [facility] Department [place] [address] * Basic metabolic panel (06/23/2023 5:06 AM [employer]) Pathologist [facility] Sodium 139 135 - 145 mmol/L [facility] Potassium, pl 4.3 3.3 - 4.9 mmol/L [facility] Chloride 103 97 - 110 mmol/L [facility] CO2 24 22 - 32 mmol/L [facility] Anion gap 12 2 - 15 mmol/L [facility] BUN 21 6 - 25 mg/dL [facility] Creatinine 0.96 0.80 - 1.30 mg/dL [facility] Glucose 102 70 - 199 mg/dL [facility] Comment: Interpretive Data Fasting glucose [...] 2022. Calcium 10.0 8.5 - 10.3 mg/dL [facility] Blood 06/23/2023 5:06 AM [employer] 06/23/2023 5:20 AM [employer] Dank Villa MD LAB BLOOD ORDERABLES Sally l Result [facility] Department [place] [address] * (ABNORMAL) Phosphorus (06/23/2023 5:06 AM [employer]) Phosphorus, pl 5.1(H) 2.3 - 4.5 mg/dL [facility] Blood 06/23/2023 5:06 AM [employer] 06/23/2023 5:20 AM [employer] Ayse Macias NP LAB BLOOD ORDERABLES Final Result [facility] Department [place] [address] * Magnesium (06/23/2023 5:06 AM [employer]) Magnesium 2.2 1.4 - 2.5 mg/dL [facility] Blood 06/23/2023 5:06 AM [employer] 06/23/2023 5:20 AM [employer] Ayse Macias [employer] LAB BLOOD ORDERABLES Final Result Performing Organization Address [facility]/ZIP Co de Phone Number [facility] Department [place] [address] * (ABNORMAL) CBC without differential (06/23/2023 5:06 AM [employer]) Pathologist [facility] WBC 9.9 3.8 - 9.9 K/cumm [facility] Hgb 9.4(L) 13.0 - 17.5 g/dL [facility] Hct 29.1(L) 38.9 - 50.3 % [facility] Plt 446(H) 150 - 400 K/cumm [facility] MPV 8.8(L) 9.1 - 12.3 fL [facility] RBC 3.30(L) 4.30 - 5.80 M/cumm [facility] MCV 88.2 81.3 - 96.4 fL [facility] MCH 28.5 27.1 - 33.3 pg [facility] MCHC 32.3 32.3 - 35.7 g/dL [facility] RDW CV 13.7 11.1 - 14.9 % [facility] RDW SD 44.7 35.7 - 48.1 fL [facility] NRBC abs 0.00 0.00 - 0.01 K/cumm [facility] Blood 06/23/2023 5:06 AM [employer] 06/23/2023 5:20 AM [employer] Ayse Macias [employer] LAB BLOOD ORDERABLES Final Result [facility] [place] [address] * Critical Care (06/22/2023 11:30 AM [employer]) Narrative Dank Villa MD - 06/22/2023 11:30 AM [employer] Dank Villa MD ? 06/22/2023 11:36 AM [...] with the ICU team and other medical/business info consultant staff, making frequent assessments and decisions [...] Final Result * eGFR (06/22/2023 1:09 AM [employer]) [facility] eGFR >90 >=60 mL/min/1. 73 m2 [facility] Comment: Interpretive Data Reference Interval [...] last reviewed 2021. Blood 06/22/2023 1:09 AM [employer] 06/22/2023 5:14 AM [employer] us Dank Villa MD LAB BLOOD ORDERABLES Sally zhang Result [facility] Department [place] [address] * Basic metabolic panel (06/22/2023 1:09 AM [employer]) [facility] Sodium 137 135 - 145 mmol/L [facility] Potassium, pl 4.2 3.3 - 4.9 mmol/L [facility] Chloride 100 97 - 110 mmol/L [facility] CO2 26 22 - 32 mmol/L [facility] Anion gap 11 2 - 15 mmol/L [facility] BUN 18 6 - 25 mg/dL [facility] Creatinine 0.85 0.80 - 1.30 mg/dL [facility] Glucose 102 70 - 199 mg/dL [facility] Comment: Interpretive Data Fasting glucose [...] mg/dL [facility] Blood 06/22/2023 1:09 AM [employer] 06/22/2023 5:14 AM [employer] Dank Villa MD LAB BLOOD ORDERABLES Sally l Result Performing Organization Address City/[facility]/ZIP Co de Phone Number [facility] [place] [address] * Phosphorus (06/22/2023 1:09 AM [employer]) Pathologist [facility] Phosphorus, pl 4.4 2.3 - 4.5 mg/dL [facility] Blood 06/22/2023 1:09 AM [employer] 06/22/2023 5:14 AM [employer] Ayse Macias NP LAB BLOOD ORDERABLES Final Result Performing Organization Address [facility] de Phone Number [facility] [place] [address] * Magnesium (06/22/2023 1:09 AM [employer]) Pathologist [facility] Magnesium 2.1 1.4 - 2.5 mg/dL [facility] Blood 06/22/2023 1:09 AM [employer] 06/22/2023 5:14 AM [employer] Ayse Macias NP LAB BLOOD ORDERABLES Final Result Performing Organization Address [facility] [place] [address] * (ABNORMAL) CBC without differential (06/22/2023 1:09 AM [employer]) [facility] WBC 8.5 3.8 - 9.9 K/cumm [facility] Hgb 9.6(L) 13.0 - 17.5 g/dL [facility] Hct 29.8(L) 38.9 - 50.3 % [facility] Plt 454(H) 150 - 400 K/cumm [facility] MPV 8.9(L) 9.1 - 12.3 fL [facility] RBC 3.36(L) 4.30 - 5.80 M/cumm [facility] MCV 88.7 81.3 - 96.4 fL [facility] MCH 28.6 27.1 - 33.3 pg [facility] MCHC 32.2(L) 32.3 - 35.7 g/dL [facility] RDW CV 13.9 11.1 - 14.9 % [facility] RDW SD 45.1 35.7 - 48.1 fL [facility] NRBC abs 0.00 0.00 - 0.01 K/cumm [facility] Blood 06/22/2023 1:09 AM [employer] 06/22/2023 5:14 AM [employer] us Ayse Macias NP LAB BLOOD ORDERABLES Final Result Performing Organization Address City/[facility]/ZIP Co de Phone Number [facility] Department [place] [address] * (ABNORMAL) Hemoglobin and hematocrit (06/21/2023 11:20 AM [employer]) [facility] Hgb 9.8(L) 13.0 - 17.5 g/dL [facility] Hct 30.7(L) 38.9 - 50.3 % [facility] Blood 06/21/2023 11:2 0 AM [employer] 06/21/2023 11:42 AM [employer] us Dank Villa MD LAB BLOOD ORDERABLES Sally l Result [facility] Department [place] [address] * Critical Care (06/21/2023 9:52 AM [employer]) Narrative Dank Villa MD - 06/21/2023 9:52 AM [employer] Dank Villa MD ? 06/21/2023 11:36 AM [...] with the ICU team and other medical/business info consultant staff, making frequent assessments and decisions [...] - Final * Triglycerides (06/21/2023 4:01 AM [employer]IL[employer]ER) [facility] Triglycerides 129 <=149 mg/dL [facility] Comment: Interpretive Data Ages < or [...] revised on 2018. Blood 06/21/2023 4:01 AM [employer] 06/21/2023 4:25 AM [employer] us Faustino Herrera MD LAB BLOOD ORDERABLES Final Result [facility] Department [place] [address] * eGFR (06/21/2023 4:01 AM [employer]) eGFR >90 >=60 mL/min/1. 73 m2 [facility] [...] last reviewed 2021. Blood 06/21/2023 4:01 AM [employer] 06/21/2023 4:59 AM [employer] us Ayse Macias NP LAB BLOOD ORDERABLES Final Result [facility] Department [place] [address] * Comprehensive metabolic panel (06/21/2023 4:01 AM [employer]) Sodium 135 135 - 145 mmol/L [facility] Potassium, pl 4.1 3.3 - 4.9 mmol/L [facility] Chloride 99 97 - 110 mmol/L [facility] CO2 25 22 - 32 mmol/L [facility] Anion gap 11 2 - 15 mmol/L [facility] BUN 17 6 - 25 mg/dL [facility] Creatinine 0.87 0.80 - 1.30 mg/dL [facility] Glucose 98 70 - 199 mg/dL [facility] Comment: Interpretive Data Fasting glucose [...] 2022. Calcium 9.8 8.5 - 10.3 mg/dL [facility] Bilirubin, total 0.3 0.1 - 1.2 mg/dL [facility] Protein, pl 8.2 6.5 - 8.5 g/dL [facility] Albumin 3.7 3.5 - 5.0 g/dL [facility] Alk phos 90 40 - 130 Units/L [facility] ALT 10 7 - 55 Units/L [facility] AST 11 10 - 50 Units/L [facility] Blood 06/21/2023 4:01 AM [employer] 06/21/2023 4:25 AM [employer] Ayse Macias [employer] LAB BLOOD ORDERABLES Final Result Performing Organization Address [facility] Co de Phone Number [facility] [place] [address] * (ABNORMAL) Phosphorus (06/21/2023 4:01 AM [employer]) Phosphorus, pl 4.7(H) 2.3 - 4.5 mg/dL [facility] Blood 06/21/2023 4:01 AM [employer] 06/21/2023 4:25 AM [employer] Ayse Macias NP LAB BLOOD ORDERABLES Final Result Performing Organization Address [facility] Co de Phone Number [facility] Department [place] [address] * Magnesium (06/21/2023 4:01 AM [employer]) Pathologist [facility] Magnesium 2.1 1.4 - 2.5 mg/dL [facility] Blood 06/21/2023 4:01 AM [employer] 06/21/2023 4:25 AM [employer] Ayse Macias [employer] LAB BLOOD ORDERABLES Final Result Performing Organization Address City/[facility] Co de Phone Number [facility] [place] [address] * (ABNORMAL) CBC without differential (06/21/2023 4:01 AM [employer]) Pathologist [facility] WBC 7.3 3.8 - 9.9 K/cumm [facility] Hgb 8.8(L) 13.0 - 17.5 g/dL [facility] Hct 27.8(L) 38.9 - 50.3 % [facility] Plt 477(H) 150 - 400 K/cumm [facility] MPV 8.9(L) 9.1 - 12.3 fL [facility] RBC 3.10(L) 4.30 - 5.80 M/cumm [facility] MCV 89.7 81.3 - 96.4 fL [facility] [facility] MCH 28.4 27.1 - 33.3 pg [facility] MCHC 31.7(L) 32.3 - 35.7 g/dL [facility] RDW CV 14.0 11.1 - 14.9 % [facility] RDW SD 46.0 35.7 - 48.1 fL [facility] NRBC abs 0.00 0.00 - 0.01 K/cumm [facility] Blood 06/21/2023 4:01 AM GLASS BULB SILVERER 06/21/2023 4:14 AM GLASS BULB SILVERER Ayse Macias [employer] LAB BLOOD ORDERABLES Final Result [facility] One [facility] Department [place] [address] * Critical Care (06/20/2023 10:00 AM GLASS BULB SILVERER) Narrative Dank Villa MD - 06/20/2023 10:00 AM GLASS BULB SILVERER Dank Villa MD ? 06/20/2023 10:06 AM [...] with the ICU team and other medical/business info consultant staff, making frequent assessments and decisions [...] Final * Renin activity (06/20/2023 2:34 AM GLASS BULB SILVERER) [facility] Renin 3.2 ng/mL/H JAIRON ERWIN Comment: REFERENCE VALUE (Peripheral vein specimen) Na-deplete, upright: ??Mean: 10.8 ??Range: 2.9-24 Na-replete, upright: ??Mean: 1.9 ??Range: < or =0.6-4.3 ADDITIONAL INFORMATION Testing performed by Liquid Chromatography-Tandem Mass Spectrometry (LC-MS/MS). This test was developed and its performance characteristics determined by [facility] in a manner consistent with CLIA requirements. This test has not been cleared or approved by the U.S. Food and Drug Administration. Test Performed by: [facility] [place] [address] [employer]: Chris Perez M.D. Ph.D.; CLIA# [id number] Blood 06/20/2023 2:34 AM GLASS BULB SILVERER 06/20/2023 3:37 AM GLASS BULB SILVERER Cristobal Cote MD LAB BLOOD ORDERABLES Final Resul t [facility] Department [place] [address] * eGFR (06/20/2023 12:22 AM GLASS BULB SILVERER) Pathologist [facility] eGFR >90 >=60 mL/min/1. 73 m2 JAIRON [...] reviewed 2021. Blood 06/20/2023 12:2 2 AM GLASS BULB SILVERER 06/20/2023 12:48 AM GLASS BULB SILVERER us Ayse Macias NP LAB BLOOD ORDERABLES Final Result [facility] Department [place] [address] * (ABNORMAL) Comprehensive metabolic panel (06/20/2023 12:22 AM GLASS BULB SILVERER) [facility] Sodium 136 135 - 145 mmol/L [facility] ERWIN Potassium, pl 4.1 3.3 - 4.9 mmol/L [facility] Chloride 100 97 - 110 mmol/L [facility] CO2 25 22 - 32 mmol/L [facility] Anion gap 11 2 - 15 mmol/L [facility] BUN 16 6 - 25 mg/dL [facility] Creatinine 0.86 0.80 - 1.30 mg/dL [facility] Glucose 135 70 - 199 mg/dL [facility] Comment: Interpretive Data Fasting glucose [...] 2022. Calcium 9.1 8.5 - 10.3 mg/dL [facility] Bilirubin, total 0.3 0.1 - 1.2 mg/dL [facility] Protein, pl 7.7 6.5 - 8.5 g/dL [facility] Albumin 3.3(L) 3.5 - 5.0 g/dL [facility] Alk phos 84 40 - 130 Units/L [facility] ALT 12 7 - 55 Units/L [facility] AST 11 10 - 50 Units/L [facility] Blood 06/20/2023 12:2 2 AM GL[employer] BUL[employer] SILVERER 06/20/2023 12:48 AM GLASS BULB SILVERER us Ayse Macias NP LAB BLOOD ORDERABLES Final Result [facility] One [facility] Department [place] [address] * Phosphorus (06/20/2023 12:22 AM GLASS BULB SILVERER) Pathologist [facility] Phosphorus, pl 4.0 2.3 - 4.5 mg/dL [facility] Blood 06/20/2023 12:2 2 AM GL[employer] BULB SILVERER 06/20/2023 12:48 AM GLASS BULB SILVERER Ayse Macias [employer] LAB BLOOD ORDERABLES Final Result [facility] [place] [address] * Magnesium (06/20/2023 12:22 AM GLASS BULB SILVERER) [facility] Magnesium 2.1 1.4 - 2.5 mg/dL [facility] Blood 06/20/2023 12:2 2 AM GL[employer] BULB SILVERER 06/20/2023 12:48 AM GLASS BULB SILVERER Ayse Macias [employer] LAB BLOOD ORDERABLES Final Result Performing Organization Address [facility] de Phone Number [facility] [place] [address] * (ABNORMAL) CBC without differential (06/20/2023 12:22 AM GLASS BULB SILVERER) [facility] WBC 9.0 3.8 - 9.9 K/cumm [facility] Hgb 8.6(L) 13.0 - 17.5 g/dL [facility] Hct 27.5(L) 38.9 - 50.3 % [facility] Plt 467(H) 150 - 400 K/cumm [facility] MPV 9.2 9.1 - 12.3 fL [facility] RBC 3.08(L) 4.30 - 5.80 M/cumm [facility] MCV 89.3 81.3 - 96.4 fL [facility] MCH 27.9 27.1 - 33.3 pg [facility] MCHC 31.3(L) 32.3 - 35.7 g/dL [facility] RDW CV 14.1 11.1 - 14.9 % [facility] RDW SD 45.7 35.7 - 48.1 fL [facility] NRBC abs 0.00 0.00 - 0.01 K/cumm [facility] Blood 06/20/2023 12:2 2 AM GL[employer] BULB SILVERER 06/20/2023 12:48 AM GLASS BULB SILVERER Ayse Macias NP LAB BLOOD ORDERABLES Final Result Performing Organization Address [facility] de Phone Number [facility] [place] [address] * (ABNORMAL) Cortisol (06/20/2023 12:22 AM GLASS BULB SILVERER) Cortisol 3.8(L) 4.8 - 19.5 mcg/dL [facility] Comment: Interpretive Data: Morning hours 6-10 a.m. ??4.8 - 19.5 mcg/dL Afternoon hours 4-8 p.m. ??2.68 - 10.5 mcg/dL This analyte undergoes marked diurnal variation. Current interpretive data was last revised 21. Blood 06/20/2023 12:2 2 AM GLASS BULB SILVERER 06/20/2023 12:47 AM GLASS BULB SILVERER Result [facility] Dank Villa MD LAB BLOOD ORDERABLES Sally l Result Performing Organization Address [facility] de Phone Number [facility] [place] [address] * (ABNORMAL) DHEA-sulfate (06/20/2023 12:22 AM GLASS BULB SILVERER) DHEA-S 84.5(L) 160.0 - 449.0 mcg/dL [facility] Blood 06/20/2023 12:2 2 AM GL[employer] BULB SILVERER 06/20/2023 12:48 AM GLASS BULB SILVERER Result [facility] Dank Villa MD LAB BLOOD ORDERABLES Sally l Result Performing Organization Address [facility] Co de Phone Number [facility] Department [place] [address] * Metanephrines, fractionated free, blood (06/20/2023 12:22 AM GLASS BULB SILVERER) Metanephrines <0.20 <0.50 nmol/L [facility] Comment: ADDITIONAL INFORMATION This test was developed and its performance characteristics determined by [facility] in a manner consistent with CLIA requirements. This test has not been cleared or approved by the U.S. Food and Drug Administration. Test Performed by: [facility] - [address] [address] [employer]er Stacker: Chris Perez M.D. Ph.D.; CLIA# [id number] Normetanephrines 0.67 <0.90 nmol/L [facility] Blood 06/20/2023 12:2 2 AM GL[employer] BULB SILVERER 06/20/2023 3:37 AM GL[employer] BULB SILVERER us Dank Villa MD LAB BLOOD ORDERABLES Sally zhang Result [facility] Department [place] [address] * Aldosterone (06/20/2023 12:22 AM GLASS BULB SILVERER) Pathologist [facility] Aldosterone <4.0 <=21 ng/dL [facility] Comment: ADDITIONAL INFORMATION Reference range for patients 11 years and older is based on upright A.M. collection from subjects without sodium restrictions. This test was developed and its performance characteristics determined by [facility] in a manner consistent with CLIA requirements. This test has not been cleared or approved by the U.S. Food and Drug Administration. Test Performed by: [facility] - [address] [address] [employer]: Chris Perez M.D. Ph.D.; CLIA# [id number] Blood 06/20/2023 12:2 2 AM GL[employer] BULB SILVERER 06/20/2023 3:37 AM GLASS BULB SILVERER us Dank Villa MD LAB BLOOD ORDERABLES Sally zhang Result [facility] Department [place] [address] * Critical Care (06/19/2023 11:34 AM GLASS BULB SILVERER) Narrative Dank Villa MD - 06/19/2023 11:34 AM GLASS BULB SILVERER Dank Villa MD ? 06/19/2023 11:42 AM [...] with the ICU team and other medical/business info consultant staff, making frequent assessments and decisions [...] * Type and screen (06/18/2023 11:58 PM GLASS BULB SILVERER) Ellen, indirect Negative ABO Rh A Positive [facility] Blood 06/18/2023 11:5 8 PM GLASS BULB SILVERER 06/19/2023 12:23 AM GLASS BULB SILVERER Narrative JAIRON ERWIN - 06/19/2023 1:19 AM GLASS BULB SILVERER Has the patient had Daratumumab or Isatuximab in the past 6 months?->Unknown us Cristobal Cote MD LAB BLOOD BANK TEST ORDERABLES F inal Result [facility] Department [place] [address] * eGFR (06/18/2023 11:52 PM GLASS BULB SILVERER) eGFR >90 >=60 mL/min/1. 73 m2 [facility] Comment: Interpretive Data Reference Interval Normal ?>/= [...] reviewed 2021. Blood 06/18/2023 11:5 2 PM GLASS BULB SILVERER 06/19/2023 12:16 AM GLASS BULB SILVERER us Ayse Macias [employer] LAB BLOOD ORDERABLES Final Result [facility] Department [place] [address] * (ABNORMAL) Comprehensive metabolic panel (06/18/2023 11:52 PM GLASS BULB SILVERER) Sodium 138 135 - 145 mmol/L [facility] Potassium, pl 3.7 3.3 - 4.9 mmol/L [facility] Chloride 104 97 - 110 mmol/L [facility] CO2 23 22 - 32 mmol/L [facility] Anion gap 11 2 - 15 mmol/L [facility] BUN 17 6 - 25 mg/dL [facility] Creatinine 0.94 0.80 - 1.30 mg/dL [facility] Glucose 128 70 - 199 mg/dL [facility] Comment: Interpretive Data Fasting glucose [...] 2022. Calcium 8.4(L) 8.5 - 10.3 mg/dL [facility] Bilirubin, total 0.3 0.1 - 1.2 mg/dL [facility] Protein, pl 7.0 6.5 - 8.5 g/dL [facility] Albumin 3.1(L) 3.5 - 5.0 g/dL [facility] Alk phos 81 40 - 130 Units/L [facility] ALT 12 7 - 55 Units/L [facility] AST 12 10 - 50 Units/L [facility] Blood 06/18/2023 11:5 2 PM GLASS BULB SILVERER 06/19/2023 12:16 AM GLASS BULB SILVERER Ayse Macias [employer]ER LAB BLOOD ORDERABLES Final Result Performing Organization Address City/[facility] Co de Phone Number [facility] [place] [address] * Phosphorus (06/18/2023 11:52 PM GLASS BULB SILVERER) Pathologist [facility] Phosphorus, pl 3.8 2.3 - 4.5 mg/dL [facility] Blood 06/18/2023 11:5 2 PM GLASS BULB SILVERER 06/19/2023 12:16 AM GLASS BULB SILVERER Ayse Macias [employer]ER LAB BLOOD ORDERABLES Final Result Performing Organization Address [facility] de Phone Number [facility] [place] [address] * Magnesium (06/18/2023 11:52 PM GLASS BULB SILVERER) Pathologist [facility] Magnesium 2.0 1.4 - 2.5 mg/dL [facility] Blood 06/18/2023 11:5 2 PM GLASS BULB SILVERER 06/19/2023 12:16 AM GLASS BULB SILVERER Ayse Macias TW[employer] ONE DEALER LAB BLOOD ORDERABLES Final Result Performing Organization Address [facility] Co de Phone Number [facility] [place] [address] * (ABNORMAL) CBC without differential (06/18/2023 11:52 PM GLASS BULB SILVERER) [facility] WBC 9.6 3.8 - 9.9 K/cumm [facility] Hgb 8.5(L) 13.0 - 17.5 g/dL [facility] Comment:Large delta with no apparant cause, correlate with clinical context and redraw if indicated. spoke to MARTITA MARTINEZ RN Hct 27.0(L) 38.9 - 50.3 % [facility] Plt 422(H) 150 - 400 K/cumm [facility] MPV 9.2 9.1 - 12.3 fL [facility] RBC 2.98(L) 4.30 - 5.80 M/cumm [facility] MCV 90.6 81.3 - 96.4 fL [facility] MCH 28.5 27.1 - 33.3 pg [facility] MCHC 31.5(L) 32.3 - 35.7 g/dL [facility] RDW CV 14.1 11.1 - 14.9 % [facility] RDW SD 46.4 35.7 - 48.1 fL [facility] NRBC abs 0.00 0.00 - 0.01 K/cumm [facility] Blood 06/18/2023 11:5 2 PM GLASS BULB SILVERER 06/19/2023 12:17 AM GLASS BULB SILVERER us Ayse Macias TW[employer] ONE DEALER LAB BLOOD ORDERABLES Final Result Performing Organization Address City/State/[facility] Co de Phone Number [facility] Department [place] [address] * Critical Care (06/18/2023 11:38 AM GLASS BULB SILVERER) Narrative Dank Villa MD - 06/18/2023 11:38 AM GLASS BULB SILVERER Dank Villa MD ? 06/18/2023 12:19 PM [...] with the ICU team and other medical/business info consultant staff, making frequent assessments and decisions [...] Final Result * eGFR (06/18/2023 3:04 AM GLASS BULB SILVERER) [facility] eGFR >90 >=60 mL/min/1. [address] [facility] Comment: Interpretive Data Reference Interval Normal [...] last reviewed 2021. Blood 06/18/2023 3:04 AM GLASS BULB SILVERER 06/18/2023 3:21 AM GLASS BULB SILVERER us Ayse Macias NP LAB BLOOD ORDERABLES Final Result [facility] Department [place] [address] * (ABNORMAL) Comprehensive metabolic panel (06/18/2023 3:04 AM GLASS BULB SILVERER) Sodium 136 135 - 145 mmol/L [facility] Potassium, pl 4.3 3.3 - 4.9 mmol/L [facility] Comment:Hemolyzed; Potassium value may be falsely elevated by as much as 0.6-1.0 mmol/L. Suggest redraw and reanalysis. Chloride 104 97 - 110 mmol/L [facility] CO2 21(L) 22 - 32 mmol/L [facility] Anion gap 11 2 - 15 mmol/L [facility] BUN 13 6 - 25 mg/dL [facility] Creatinine 0.84 0.80 - 1.30 mg/dL [facility] Glucose 113 70 - 199 mg/dL [facility] Comment: Interpretive Data Fasting glucose [...] 2022. Calcium 8.5 8.5 - 10.3 mg/dL [facility] Bilirubin, total 0.2 0.1 - 1.2 mg/dL [facility] Protein, pl 7.4 6.5 - 8.5 g/dL [facility] Albumin 2.8(L) 3.5 - 5.0 g/dL [facility] Alk phos 87 40 - 130 Units/L [facility] ALT 18 7 - 55 Units/L [facility] AST 34 10 - 50 Units/L [facility] Comment:Hemolyzed; result ma y be falsely elevated Blood 06/18/2023 3:04 AM GLASS BULB SILVERER 06/18/2023 3:21 AM GLASS BULB SILVERER Ayse Macias [employer]ER LAB BLOOD ORDERABLES Final Result Performing Organization Address [facility] Co de Phone Number [facility] [place] [address] * Phosphorus (06/18/2023 3:04 AM GLASS BULB SILVERER) Phosphorus, pl 2.9 2.3 - 4.5 mg/dL [facility] Blood 06/18/2023 3:04 AM GLASS BULB SILVERER 06/18/2023 3:21 AM GLASS BULB SILVERER Ayse Macias TWENT[employer] ONE DEALER LAB BLOOD ORDERABLES Final Result Performing Organization Address [facility] de Phone Number [facility] [place] [address] * Magnesium (06/18/2023 3:04 AM GLASS BULB SILVERER) Magnesium 2.2 1.4 - 2.5 mg/dL [facility] Blood 06/18/2023 3:04 AM GLASS BULB SILVERER 06/18/2023 3:21 AM GLASS BULB SILVERER Ayse Macias TWENT[employer] ONE DEALER LAB BLOOD ORDERABLES Final Result Performing Organization Address [facility] de Phone Number [facility] [place] [address] * CBC without differential (06/18/2023 3:04 AM GLASS BULB SILVERER) WBC 6.4 3.8 - 9.9 K/cumm [facility] Hgb 13.2 13.0 - 17.5 g/dL [facility] Hct 40.9 38.9 - 50.3 % [facility] Plt 328 150 - 400 K/cumm [facility] MPV 9.3 9.1 - 12.3 fL [facility] RBC 4.61 4.30 - 5.80 M/cumm [facility] MCV 88.7 81.3 - 96.4 fL [facility] MCH 28.6 27.1 - 33.3 pg [facility] MCHC 32.3 32.3 - 35.7 g/dL [facility] RDW CV 14.0 11.1 - 14.9 % [facility] RDW SD 45.2 35.7 - 48.1 fL [facility] NRBC abs 0.00 0.00 - 0.01 K/cumm [facility] Blood 06/18/2023 3:04 AM GLASS BULB SILVERER 06/18/2023 3:21 AM GLASS BULB SILVERER us Ayse Macias TW[employer]ER LAB BLOOD ORDERABLES Final Result [facility] One [facility] Department [place] [address] * (ABNORMAL) Triglycerides (06/18/2023 3:04 AM GLASS BULB SILVERER) Triglycerides 216(H) <=149 mg/dL [facility] Comment: Interpretive Data Ages < or [...] revised on 2018. Blood 06/18/2023 3:04 AM GLASS BULB SILVERER 06/18/2023 3:21 AM GLASS BULB SILVERER Kristine Underwood NP LAB BLOOD ORDERABLES Final R esult Performing Organization Address [facility] Co de Phone Number [facility] Department [place] [address] * POCT glucose (06/17/2023 8:55 AM GLASS BULB SILVERER) Glucose, POC 86 70 - 199 mg/dL [facility] Blood 06/17/2023 8:55 AM GLASS BULB SILVERER 06/17/2023 8:55 AM GLASS BULB SILVERER Faustino Herrera MD LAB POCT ORDERABLES - ROSIE CE Final Result Performing Organization Address [facility] Co de Phone Number [facility] [place] [address] * Critical Care (06/17/2023 6:58 AM GLASS BULB SILVERER) Narrative Mehul Brooks MD - 06/17/2023 6:58 AM GLASS BULB SILVERER Kristine Underwood NP ? 06/17/2023 ??5:01 PM [...] with the ICU team and other medical/business info consultant staff, making frequent assessments and decisions [...] documenting in the medical record Kristine Underwood TW[employer]Y ONE DEALER IN CLINIC/BEDSIDE ORDERABLES Final Result * Potassium, whole blood (06/17/2023 5:51 AM GLASS BULB SILVERER) Pathologist [facility] Potassium, bld 3.8 3.3 - 4.9 mmol/L [facility] Blood 06/17/2023 5:51 AM GLASS BULB SILVERER 06/17/2023 6:00 AM GLASS BULB SILVERER Sreekanth Armstrong TW[employer] ONE [employer]ER LAB BLOOD ORDERABLES Sally l Result [facility] Department [place] [address] * eGFR (06/17/2023 12:00 AM GLASS BULB SILVERER) Pathologist [facility] eGFR >90 >=60 mL/min/1. 73 m2 [facility] Comment: Interpretive Data Reference Interval [...] 2021. Blood 06/17/2023 06/17/2023 12: 16 AM GLASS BULB SILVERER us Ayse Macias NP LAB BLOOD ORDERABLES Final Result [facility] One [facility] Department [place] [address] * (ABNORMAL) Comprehensive metabolic panel (06/17/2023 12:00 AM GLASS BULB SILVERER) Sodium 138 135 - 145 mmol/L [facility] Potassium, pl 3.7 3.3 - 4.9 mmol/L [facility] Chloride 107 97 - 110 mmol/L [facility] CO2 21(L) 22 - 32 mmol/L [facility] Anion gap 10 2 - 15 mmol/L [facility] BUN 7 6 - 25 mg/dL [facility] Creatinine 0.71(L) 0.80 - 1.30 mg/dL [facility] Glucose 117 70 - 199 mg/dL [facility] Comment: Interpretive Data Fasting glucose [...] 2022. Calcium 8.3(L) 8.5 - 10.3 mg/dL [facility] Bilirubin, total 0.2 0.1 - 1.2 mg/dL [facility] Protein, pl 7.4 6.5 - 8.5 g/dL [facility] Albumin 3.2(L) 3.5 - 5.0 g/dL [facility] Alk phos 92 40 - 130 Units/L [facility] ALT 14 7 - 55 Units/L [facility] AST 14 10 - 50 Units/L [facility] Blood 06/17/2023 06/17/2023 12: 16 AM GLASS BULB SILVERER Ayse Macias TW[employer]ER LAB BLOOD ORDERABLES Final Result [facility] Department [place] [address] * Phosphorus (06/17/2023 12:00 AM GLASS BULB SILVERER) Phosphorus, pl 2.3 2.3 - 4.5 mg/dL [facility] Blood 06/17/2023 06/17/2023 12: 16 AM GLASS BULB SILVERER Ayse Macias TWENTY ONE DEALER LAB BLOOD ORDERABLES Final Result Performing Organization Address City/[facility]/ZIP Co de Phone Number [facility] Department [place] [address] * Magnesium (06/17/2023 12:00 AM GLASS BULB SILVERER) Magnesium 1.9 1.4 - 2.5 mg/dL [facility] Blood 06/17/2023 06/17/2023 12: 16 AM GLASS BULB SILVERER Ayse Macias TW[employer] ONE DEALER LAB BLOOD ORDERABLES Final Result Performing Organization Address City/[facility]/ZIP Co de Phone Number [facility] Department [place] [address] * (ABNORMAL) CBC without differential (06/17/2023 12:00 AM GLASS BULB SILVERER) WBC 11.3(H) 3.8 - 9.9 K/cumm [facility] Hgb 9.4(L) 13.0 - 17.5 g/dL [facility] Hct 29.2(L) 38.9 - 50.3 % [facility] Plt 470(H) 150 - 400 K/cumm [facility] MPV 9.3 9.1 - 12.3 fL [facility] RBC 3.27(L) 4.30 - 5.80 M/cumm [facility] MCV 89.3 81.3 - 96.4 fL [facility] MCH 28.7 27.1 - 33.3 pg [facility] MCHC 32.2(L) 32.3 - 35.7 g/dL [facility] RDW CV 13.5 11.1 - 14.9 % [facility] RDW SD 44.3 35.7 - 48.1 fL [facility] NRBC abs 0.00 0.00 - 0.01 K/cumm [facility] Blood 06/17/2023 06/17/2023 12: 17 AM [facility] [employer] Ayse Macias [employer] LAB BLOOD ORDERABLES Final Result [facility] [employer] [place] [address] * Potassium, whole blood (06/16/2023 8:47 PM [employer] [employer]) Pathologist [facility] Potassium, bld 3.5 3.3 - 4.9 mmol/L [facility] Blood 06/16/2023 8:47 PM [employer] 06/16/2023 8:59 PM [employer] us Sreekanth Armstrong [employer] BLOOD ORDERABLES Sally l Result [facility] [place] [address] * XR Chest 1 View (06/16/2023 7:29 PM [employer]) Anatomical Region Laterality Modality Body, Chest N/A Computed Radiogr aphy 06/17/2023 10:3 3 AM [employer] Impressions 06/17/2023 10:33 AM [employer] Comparison 06/13/2023. 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 Heart size remains within normal limits. ??Cardiomediastinal silhouette stable. New focal right upper lung opacity may represent atelectasis. Attention on follow-up examination recommended. ??The left lung is clear. No pneumothorax or pleural effusion seen. Electronically signed by: James Alvarado M.D. Narrative 06/17/2023 10:33 AM [facility] SILVERER EXAMINATION: 1 view chest radiograph Procedure Note [...] signed by: James Alvarado M.D. Sreekanth Armstrong [employer] IMG XR PROCEDURES Final R esult * Critical Care (06/16/2023 6:40 PM [facility] [facility]IL[facility]ER) Narrative Mehul Brooks MD - 06/16/2023 6:40 PM [facility] [employer] Deniz Ireland PA ? 06/17/2023 ??5:26 AM [...] with the patient's team and other medical/business info consultant staff. This time was in addition [...] (ABNORMAL) Potassium, whole blood (06/16/2023 10:35 AM [facility] [employer]IL[facility]ER) Potassium, bld 3.1(L) 3.3 - 4.9 mmol/L [facility] Blood 06/16/2023 10:3 5 AM [facility] 06/16/2023 10:45 AM [employer] [employer] Faustino Herrera MD LAB BLOOD ORDERABLES Final Result Performing Organization Address City/[facility]/ZIP Co de Phone Number [facility] Department [place] [address] * Vancomycin level trough (06/16/2023 9:40 AM [facility]ASS [facility] [facility]IL[facility]ER) Pathologist [facility] Vancomycin trough 17.2 10.0 - 20.0 mcg/mL [facility] Comment:Reviewed Blood 06/16/2023 9:40 AM [facility] [employer] 06/16/2023 9:54 AM [facility] [employer] Sreekanth Armstrong NP LAB BLOOD ORDERABLES Sally l Result [facility] [place] [address] * Critical Care (06/16/2023 6:40 AM [facility] [employer]IL[employer]) Narrative Mehul Brooks MD - 06/16/2023 6:40 AM [facility] [employer] Sreekanth Armstrong NP ? 06/16/2023 ??4:38 PM [...] with the ICU team and other medical/business info consultant staff, making frequent assessments and decisions [...] in the medical record us Sreekanth Armstrong [employer] ONE DEALER IN CLINIC/BEDSIDE ORDERAB LES Final Result * Potassium, whole blood (06/16/2023 6:00 AM [facility] [employer] SIL[facility]ER) Pathologist [facility] Potassium, bld 3.4 3.3 - 4.9 mmol/L [facility] Blood 06/16/2023 6:00 AM [employer] [employer] 06/16/2023 6:07 AM [employer]IL[employer]ER us Sreekanth Armstrong [employer] LAB BLOOD ORDERABLES Sally l Result [facility] One [facility] Department [place] [address] * MRI Spine Total Complete W WO Contrast (06/16/2023 5:19 AM [facility]ILVERER) Anatomical Region Laterality Modality Spine N/A Magnetic Resonan ce 06/16/2023 9:57 AM [facility] [facility] Impressions 06/16/2023 11:37 AM [employer] [employer] 1. ??No evidence of infection in the spine. 2. ??Mild right paraspinal musculature edema at L4-L5. ??No fluid collection. Dictated by: Dustin Esteves M.D. The radiology attending physician has personally reviewed this study, and had reviewed and/or edited this written report and agrees with it. Electronically signed by: Arnulfo Macedo MD, PHD Narrative 06/16/2023 11:37 AM [facility] [employer] EXAMINATION: 1. Magnetic resonance imaging (MRI) of [...] (ABNORMAL) Potassium, whole blood (06/16/2023 1:13 AM [employer] [employer]IL[employer]ER) Potassium, bld 3.1(L) 3.3 - 4.9 mmol/L [facility] Blood 06/16/2023 1:13 AM [employer] [employer]ER 06/16/2023 1:22 AM [facility] [employer]ER Sreekanth Armstrong [employer]ER LAB BLOOD ORDERABLES Sally l Result [facility] One [facility] Department [place] [address] * eGFR (06/16/2023 12:00 AM [facility] [employer] SILVERER) [facility] eGFR >90 >=60 mL/min/1. 73 m2 [facility] Comment: Interpretive Data Reference Interval [...] 2021. Blood 06/16/2023 06/16/2023 12: 21 AM [employer] [employer]ER us Ayse Macias NP LAB BLOOD ORDERABLES Final Result [facility] One [facility] Department of Laboratories [place], [place] [id number] * (ABNORMAL) Comprehensive metabolic panel (06/16/2023 12:00 AM GL[facility] [employer] SILVERER) [facility] Sodium 138 135 - 145 mmol/L [facility] Potassium, pl 3.0(L) 3.3 - 4.9 mmol/L [facility] Chloride 105 97 - 110 mmol/L [facility] CO2 23 22 - 32 mmol/L [facility] Anion gap 10 2 - 15 mmol/L [facility] BUN 9 6 - 25 mg/dL [facility] Creatinine 0.96 0.80 - 1.30 mg/dL [facility] Glucose 127 70 - 199 mg/dL [facility] Comment: Interpretive Data Fasting glucose [...] 2022. Calcium 9.0 8.5 - 10.3 mg/dL [facility] Bilirubin, total 0.2 0.1 - 1.2 mg/dL [facility] Protein, pl 7.9 6.5 - 8.5 g/dL [facility] Albumin 3.4(L) 3.5 - 5.0 g/dL [facility] Alk phos 92 40 - 130 Units/L [facility] ALT 11 7 - 55 Units/L [facility] AST 10 10 - 50 Units/L [facility] Blood 06/16/2023 06/16/2023 12: 21 AM [facility] [employer] SIL[employer]ER Ayse Macias NP LAB BLOOD ORDERABLES Final Result [facility] One [facility] Department [place] [address] * Phosphorus (06/16/2023 12:00 AM [facility] [employer] SIL[employer]ER) [facility] Phosphorus, pl 3.3 2.3 - 4.5 mg/dL [facility] Blood 06/16/2023 06/16/2023 12: 21 AM [facility] [employer]IL[employer]ER Ayse K. Gilberto [employer]ER LAB BLOOD ORDERABLES Final Result [facility] One [facility] [place] [address] * Magnesium (06/16/2023 12:00 AM [facility] [employer]IL[employer]ER) Pathologist [facility] Magnesium 2.2 1.4 - 2.5 mg/dL [facility] Blood 06/16/2023 06/16/2023 12: 21 AM [facility] [employer] SIL[employer]ER Ayse Macias [employer]ER LAB BLOOD ORDERABLES Final Result Performing Organization Address [facility] Co de Phone Number [facility] [place] [address] * (ABNORMAL) CBC without differential (06/16/2023 12:00 AM GL[facility] [employer]IL[employer]ER) WBC 9.6 3.8 - 9.9 K/cumm [facility] Hgb 9.7(L) 13.0 - 17.5 g/dL [facility] Hct 29.9(L) 38.9 - 50.3 % [facility] Plt 490(H) 150 - 400 K/cumm [facility] MPV 9.3 9.1 - 12.3 fL [facility] RBC 3.37(L) 4.30 - 5.80 M/cumm [facility] MCV 88.7 81.3 - 96.4 fL [facility] MCH 28.8 27.1 - 33.3 pg [facility] MCHC 32.4 32.3 - 35.7 g/dL [facility] RDW CV 13.4 11.1 - 14.9 % [facility] RDW SD 43.8 35.7 - 48.1 fL [facility] NRBC abs 0.00 0.00 - 0.01 K/cumm [facility] Blood 06/16/2023 06/16/2023 12: 22 AM [facility] [employer] SIL[employer]ER Ayse Macias [employer] ONE DEALER LAB BLOOD ORDERABLES Final Result Performing Organization Address [facility]/ZIP Co de Phone Number [facility] One [facility] Department [place] [address] * (ABNORMAL) Triglycerides (06/16/2023 12:00 AM [facility] [employer]IL[employer]ER) Triglycerides 222(H) <=149 mg/dL [facility] Comment: Interpretive Data Ages < or [...] 2018. Blood 06/16/2023 06/16/2023 12: 21 AM [employer] [employer] SIL[employer]ER us Sreekanth Armstrong [employer] ONE DEALER LAB BLOOD ORDERABLES Sally l Result Performing Organization Address [facility] Co de Phone Number [facility] One [facility] Department [place] [address] * Critical Care (06/15/2023 9:04 PM [facility] [employer]IL[employer]ER) Narrative Mehul Brooks MD - 06/15/2023 9:04 PM [facility] [employer]IL[employer]ER Deniz Ireland PA ? 06/16/2023 ??5:21 AM [...] with the ICU team and other medical/business info consultant staff, making frequent assessments and decisions [...] Result * Critical Care (06/15/2023 7:15 AM [facility] [employer]IL[employer]ER) Narrative Mehul Brooks MD - 06/15/2023 7:15 AM [facility] [employer]IL[employer]ER Sreekanth Armstrong NP ? 06/15/2023 ??4:42 PM [...] with the ICU team and other medical/business info consultant staff, making frequent assessments and decisions [...] Final Result * eGFR (06/14/2023 8:31 PM GLASS [employer] SILVERER) [facility] eGFR >90 >=60 mL/min/1. 73 m2 [facility] Comment: Interpretive Data Reference Interval Normal ?>/= [...] last reviewed 2021. Blood 06/14/2023 8:31 PM [facility] [employer] SIL[employer]ER 06/14/2023 8:46 PM [employer] SIL[employer]ER us Ayse Macias NP LAB BLOOD ORDERABLES Final Result [facility] One [facility] Department [place] [address] * (ABNORMAL) Comprehensive metabolic panel (06/14/2023 8:31 PM GLASS [employer]UL[employer] SILVERER) Sodium 139 135 - 145 mmol/L [facility] Potassium, pl 3.9 3.3 - 4.9 mmol/L [facility] Chloride 106 97 - 110 mmol/L [facility] CO2 21(L) 22 - 32 mmol/L [facility] Anion gap 12 2 - 15 mmol/L [facility] BUN 10 6 - 25 mg/dL [facility] Creatinine 0.86 0.80 - 1.30 mg/dL [facility] Glucose 127 70 - 199 mg/dL [facility] Comment: Interpretive Data Fasting glucose [...] Calcium 8.9 8.5 - 10.3 mg/dL [facility] Bilirubin, total 0.4 0.1 - 1.2 mg/dL [facility] Protein, pl 7.9 6.5 - 8.5 g/dL [facility] Albumin 3.5 3.5 - 5.0 g/dL [facility] Alk phos 99 40 - 130 Units/L [facility] ALT 19 7 - 55 Units/L [facility] AST 18 10 - 50 Units/L [facility] Blood 06/14/2023 8:31 PM GL[facility] [employer]UL[employer] SILVERER 06/14/2023 8:46 PM GLASS BUL[employer] SILVERER us Ayse K. Gilberto [employer]ER LAB BLOOD ORDERABLES Final Result Performing Organization Address City/[facility]/ZIP Co de Phone Number [facility] [place] [address] * Phosphorus (06/14/2023 8:31 PM GLASS BULB SILVERER) [facility] Phosphorus, pl 3.5 2.3 - 4.5 mg/dL [facility] Blood 06/14/2023 8:31 PM [employer] SIL[employer]ER 06/14/2023 8:46 PM GL[facility] [employer] SILVERER Ayse Macias [employer] ONE DEALER LAB BLOOD ORDERABLES Final Result Performing Organization Address [facility] Co de Phone Number [facility] Department [place] [address] * Magnesium (06/14/2023 8:31 PM GLASS BUL[employer] SILVERER) [facility] Magnesium 1.8 1.4 - 2.5 mg/dL [facility] Blood 06/14/2023 8:31 PM [employer] [employer] SILVERER 06/14/2023 8:46 PM GL[facility] [employer] SILVERER Ayse Macias [employer] ONE DEALER LAB BLOOD ORDERABLES Final Result Performing Organization Address [facility] Co de Phone Number [facility] Department [place] [address] * (ABNORMAL) CBC without differential (06/14/2023 8:31 PM GLASS [employer] SILVERER) [facility] WBC 11.7(H) 3.8 - 9.9 K/cumm [facility] Hgb 9.9(L) 13.0 - 17.5 g/dL [facility] Hct 30.5(L) 38.9 - 50.3 % [facility] Plt 513(H) 150 - 400 K/cumm [facility] MPV 9.0(L) 9.1 - 12.3 fL [facility] RBC 3.43(L) 4.30 - 5.80 M/cumm [facility] MCV 88.9 81.3 - 96.4 fL [facility] MCH 28.9 27.1 - 33.3 pg [facility] MCHC 32.5 32.3 - 35.7 g/dL [facility] RDW CV 13.2 11.1 - 14.9 % [facility] RDW SD 43.1 35.7 - 48.1 fL [facility] NRBC abs 0.00 0.00 - 0.01 K/cumm [facility] Blood 06/14/2023 8:31 PM [employer] [employer] SIL[employer]ER 06/14/2023 8:46 PM GLASS [employer] SILVERER us Ayse Macias NP LAB BLOOD ORDERABLES Final Result [facility] One [facility] Department [place] [address] * Critical Care (06/14/2023 7:02 PM [employer] [employer] SIL[employer]ER) Narrative Mehul Brooks MD - 06/14/2023 7:02 PM [employer] [employer] SIL[employer]ER Su Lu NP ? 06/15/2023 ??4:26 AM [...] with the ICU team and other medical/business info consultant staff, making frequent assessments and decisions [...] prior to 4th dose. (06/14/2023 5:51 PM GL[facility] [employer] SILVERER) Vancomycin trough 15.5 10.0 - 20.0 mcg/mL [facility] Blood 06/14/2023 5:51 PM [employer] SIL[employer]ER 06/14/2023 6:08 PM [employer] [employer] SIL[employer]ER Narrative [facility] - 06/14/2023 6:42 PM [employer] SIL[employer]ER Draw trough 30 minutes prior to 4th dose. us Faustino Herrera MD LAB BLOOD ORDERABLES Final Result [facility] One [facility] Department [place] [address] * AK ARTL CATHJ/CANNULJ MNTR/TRANSFUSION SPX PRQ (06/14/2023 1:52 PM GLASS [employer] SILVERER) Narrative Sreekanth Armstrong NP - 06/14/2023 1:52 PM [employer] SIL[employer]ER Sreekanth Armstrong NP ? 06/14/2023 ??1:55 PM Arterial Line Insertion Date/Time: 06/14/2023 1:52 PM Performed by: Sreekanth Armstrong NP Authorized by: Sreekanth Armstrong NP ?? [place] Protocol: RN Notified of Procedure: yes ?? [...] specimen(s) to lab determined: n/a ?? Result [facility] Sreekanth Armstrong NP IV THERAPY ORDERABLES [facility] al Result * HIV 1/2 Antibody plus p24 Antigen Blood (06/14/2023 11:08 AM GLASS B[employer] SILVERER) Pathologist [facility] HIV 1/2 ab + p24 ag Nonreactive Nonreactive [facility] Comment:Nonreactive for HIV- 1 antigen and HIV-1/HIV-2 antibodies. No laboratory evidence of HIV infection. If acute HIV infection is suspected, consider testing for HIV-1 RNA. Current interpretive data was last revised on 22. Blood 06/14/2023 11:0 8 AM [employer] SILVERER 06/14/2023 11:27 AM GL[employer] SILVERER us Faustino Herrera MD LAB MICROBIOLOGY - GENERAL ORDERABLES Final Result [facility] One [facility] Department [place] [address] * Critical Care (06/14/2023 7:05 AM [employer] SILVERER) Narrative Mehul Brooks MD - 06/14/2023 7:05 AM [employer] [employer] SIL[employer]ER Sreekanth Armstrong NP ? 06/14/2023 ??5:02 PM [...] with the ICU team and other medical/business info consultant staff, making frequent assessments and decisions [...] Final Result * eGFR (06/14/2023 12:14 AM GLASS [employer]UL[employer] SILVERER) [facility] eGFR >90 >=60 mL/min/1. 73 [...] reviewed 2021. Blood 06/14/2023 12:1 4 AM [employer] SILVERER 06/14/2023 12:31 AM GLASS BUL[employer] SILVERER us Ayse Macias [employer] ONE DEALER LAB BLOOD ORDERABLES Final Result [facility] One [facility] Department [place] [address] * (ABNORMAL) Comprehensive metabolic panel (06/14/2023 12:14 AM GLASS BUL[employer] SILVERER) Pathologist [facility] Sodium 138 135 - 145 mmol/L [facility] Potassium, pl 3.9 3.3 - 4.9 mmol/L [facility] Chloride 107 97 - 110 mmol/L [facility] CO2 20(L) 22 - 32 mmol/L [facility] Anion gap 11 2 - 15 mmol/L [facility] BUN 15 6 - 25 mg/dL [facility] Creatinine 0.90 0.80 - 1.30 mg/dL [facility] Glucose 122 70 - 199 mg/dL [facility] Comment: Interpretive Data Fasting glucose [...] 2022. Calcium 9.2 8.5 - 10.3 mg/dL [facility] Bilirubin, total 0.4 0.1 - 1.2 mg/dL [facility] Protein, pl 8.0 6.5 - 8.5 g/dL [facility] Albumin 3.5 3.5 - 5.0 g/dL [facility] Alk phos 100 40 - 130 Units/L [facility] ALT 23 7 - 55 Units/L [facility] AST 14 10 - 50 Units/L [facility] Blood 06/14/2023 12:1 4 AM [employer]UL[employer] SILVERER 06/14/2023 12:31 AM GL[employer] SILVERER Ayse Macias TW[employer] DEALER LAB BLOOD ORDERABLES Final Result [facility] [place] [address] * Lactate, whole blood (06/14/2023 12:14 AM GL[employer] SILVERER) Lactate, bld 1.8 0.7 - 2.0 mmol/L [facility] Blood 06/14/2023 12:1 4 AM [employer] SILVERER 06/14/2023 12:26 AM [employer] SIL[employer]ER Ayse Macias NP LAB BLOOD ORDERABLES Final Result [facility] Department [place] [address] * Phosphorus (06/14/2023 12:14 AM GLASS BUL[employer] SILVERER) Phosphorus, pl 3.1 2.3 - 4.5 mg/dL [facility] Blood 06/14/2023 12:1 4 AM [employer] SILVERER 06/14/2023 12:30 AM GL[employer] SILVERER Ayse Macias TW[employer] ONE DEALER LAB BLOOD ORDERABLES Final Result Performing Organization Address City/[facility] Co de Phone Number [facility] [place] [address] * Magnesium (06/14/2023 12:14 AM GLASS BUL[employer] SILVERER) [facility] Magnesium 2.1 1.4 - 2.5 mg/dL [facility] Blood 06/14/2023 12:1 4 AM [employer] SILVERER 06/14/2023 12:30 AM GL[employer] SILVERER Ayse Macias TW[employer] ONE DEALER LAB BLOOD ORDERABLES Final Result Performing Organization Address [facility] de Phone Number [facility] [place] [address] * (ABNORMAL) CBC without differential (06/14/2023 12:14 AM GLASS [employer]UL[employer] SILVERER) [facility] WBC 9.9 3.8 - 9.9 K/cumm [facility] Hgb 9.3(L) 13.0 - 17.5 g/dL [facility] Hct 28.7(L) 38.9 - 50.3 % [facility] Plt 479(H) 150 - 400 K/cumm [facility] MPV 8.9(L) 9.1 - 12.3 fL [facility] RBC 3.25(L) 4.30 - 5.80 M/cumm [facility] MCV 88.3 81.3 - 96.4 fL [facility] MCH 28.6 27.1 - 33.3 pg [facility] MCHC 32.4 32.3 - 35.7 g/dL [facility] RDW CV 13.6 11.1 - 14.9 % [facility] RDW SD 44.1 35.7 - 48.1 fL [facility] NRBC abs 0.00 0.00 - 0.01 K/cumm [facility] Blood 06/14/2023 12:1 4 AM [employer] SILVERER 06/14/2023 12:31 AM GL[employer] B[employer] SILVERER us Ayse Macias NP LAB BLOOD ORDERABLES Final Result Performing Organization Address City/[facility] Co de Phone Number [facility] [place] [address] * Histoplasma Antigen Urine (06/13/2023 11:13 PM GLASS BUL[employer] SILVERER) Pathologist [facility] Histo Ag Ur result None Detected None Detected [facility] Histo Ag Ur interp Negative Negative [facility] Comment: Result Interpretation: Reference interval: None Detected Results reported as ng/mL in 0.20 - 20.00 ng/mL range Results above 20.00 ng/mL are reported as 'Positive, Above the Limit of Quantification' Testing Performed by: [employer], [address] [place] [address] [place] [facility]. This test was developed and its performance characteristics determined by [employer]. It has not been cleared or approved by the FDA; however, FDA clearance or approval is not currently required for clinical use. The results are not intended to be used as the sole means for clinical diagnosis or patient management decisions. Interpretative data updated 07/28/2020 Urine 06/13/2023 11:1 3 PM [employer] SILVERER 06/14/2023 12:33 AM GLASS BULB SILVERER us Mateo Diaz NP LAB MICROBIOLOGY - GENERAL OR DERABLES Final Result Performing Organization Address [facility] [place] [address] * Critical Care (06/13/2023 10:43 PM GLASS BUL[employer] SILVERER) Narrative Mehul Brooks MD - 06/13/2023 10:43 PM [employer]ASS [employer] SILVERER Ayse Macias NP ? 06/14/2023 ??5:40 AM [...] with the ICU team and other medical/business info consultant staff, making frequent assessments and decisions [...] Thoracic Spine WO Contrast (06/13/2023 10:43 PM GLASS BUL[employer] SILVERER) Anatomical Region Laterality Modality Spine N/A Magnetic Resonan ce 06/14/2023 8:45 AM [employer] SILVERER Impressions 06/14/2023 8:45 AM GL[employer] SILVERER 1. ??Only sagittal T2 weighted images were obtained. 2. ??No acute abnormality of the thoracic spine with normal appearance of intervertebral disks and endplates without evidence of discitis/osteomyelitis. Electronically signed by: Gus Su MD Narrative 06/14/2023 8:45 AM [employer] SILVERER EXAMINATION: Magnetic resonance imaging (MRI) of the [...] by: Gus Su MD Akash Spears MD [facility] MRI PROCEDURES Final Result * Potassium, whole blood (06/13/2023 7:11 PM GLASS BULB SILVERER) Potassium, bld 3.7 3.3 - 4.9 mmol/L [facility] Blood 06/13/2023 7:11 PM [employer] SILVERER 06/13/2023 7:22 PM GLASS BULB SILVERER Mateo Diaz NP LAB BLOOD ORDERABLES Final Re sult [facility] One [facility] Department [place] [address] * ECG 12 lead (06/13/2023 6:04 PM GLASS BULB SILVERER) Ventricular Rate EKG/Min 80 BPM [facility] Atrial Rate 80 BPM [facility] AK-Interval (MSEC) 164 ms [facility] QRS-Interval (MSEC) 92 ms [facility] QT-Interval (MSEC) 398 ms [facility] QTc 459 ms [facility] P [place] 32 degrees [facility] R [place] -10 degrees [facility] T [place] 170 degrees [facility] Diagnosis Normal sinus rhythm Minimal voltage criteria [...] VALVERDE M.D ([id number]) on 06/20/2023 9:48:46 PM [facility] 06/13/2023 6:04 PM [employer] SIL[employer]ER 06/20/2023 9:48 PM [employer] SILVERER Mateo Diaz NP ECG ORDERABLES Final Result [facility] * Histoplasma Antibody Blood (06/13/2023 6:00 PM GLASS BULB SILVERER) Histoplasma Ab, mycelial CF Negative Negative [facility] Histoplasma Ab, yeast CF Negative Negative [facility] Histoplasma Ab, Immunodiffusion Negative Negative [facility] Comment: A negative complement fixation and immunodiffusion (CF/ID) result does not exclude the diagnosis of histoplasmosis. ?? Repeat testing by CF/ID in 1-2 weeks if clinically indicated. Test Performed by: [facility] [address] [place] [address] [employer]: Chris Perez M.D. Ph.D.; CLIA# [id number] Blood 06/13/2023 6:00 PM [employer] SIL[employer]ER 06/13/2023 6:41 PM [employer] SILVERER Mateo Diaz NP LAB MICROBIOLOGY - GENERAL OR DERABLES Final Result Performing Organization Address [facility] Co de Phone [place] [address] * Q fever ab w rflx to immunofluorescence Blood (06/13/2023 6:00 PM GLASS BUL[employer] SILVERER) Q fever ab scrn w titer rflx ser Negative Negative [facility] Comment: No antibodies to Q Fever (Coxiella burnetii) detected. ?? Repeat testing on a new sample collected in 2-3 weeks if acute Q Fever is suspected. ?? ADDITIONAL INFORMATION This test was developed and its performance characteristics determined by [facility] in a manner consistent with CLIA requirements. This test has not been cleared or approved by the U.S. Food and Drug Administration. Test Performed by: [facility] [place] [id number] [place] [address] [employer]acker: Chris Perez M.D. Ph.D.; CLIA# [id number] Blood 06/13/2023 6:00 PM [employer] SILVERER 06/13/2023 6:27 PM [employer] SILVERER Mateo Diaz NP LAB MICROBIOLOGY - GENERAL OR DERABLES Final Result Performing Organization Address [facility] de Phone Number [facility] [place] [address] * Bartonella antibody panel Blood (06/13/2023 6:00 PM GLASS B[facility] SILVERER) B Henselae, IgG <1:128 <1:128 titer [facility] B Henselae, IgM <1:20 <1:20 titer [facility] B. Lewis, IgG <1:128 <1:128 titer [facility] B. Lewis, IgM <1:20 <1:20 titer [facility] Comment: ADDITIONAL INFORMATION This test was developed and its performance characteristics determined by [facility] in a manner consistent with CLIA requirements. This test has not been cleared or approved by the U.S. Food and Drug Administration. Test Performed by: [facility] [address] [place] [address] Veneer Stacker: Chris Perez M.D. Ph.D.; CLIA# [id number] Blood 06/13/2023 6:00 PM [facility] 06/13/2023 6:41 PM [facility] Mateo Diaz NP LAB MICROBIOLOGY - GENERAL OR DERABLES Final Result Performing Organization Address [facility] Co de Phone Number [facility] Department [place] [address] * Troponin I high-sensitivity 6-hour (06/13/2023 6:00 PM [facility]IL[facility]) Trop I hs 6 <=35 ng/L [facility] Comment: Interpretive Data For further hscTnI resources including the diagnostic algorithm and an aid in interpretation, copy and paste this link: https://bjhlab.testcatalog.org/show/hsTrop-1 Current Interpretive Data last revised 2019. Trop I hs delta See Comment ng/L [facility] Comment:Inappropriate collec tion time to report a delta. Trop I hs pct delta See Comment % [facility] Comment:Inappropriate collec tion time to report a delta. Trop I hs interp See Comment [facility] Comment:Inappropriate collec tion time to report a delta. Blood 06/13/2023 6:00 PM [facility] 06/13/2023 6:15 PM [facility] Akash Spears MD LAB BLOOD ORDERABLES Sally l Result Performing Organization Address [facility]/ZIP Co de Phone Number [facility] Department [place] [address] * Critical Care (06/13/2023 5:36 PM [facility] [facility]) Narrative Mehul Brooks MD - 06/13/2023 5:36 PM [facility] Mateo Diaz NP ? 06/13/2023 ??6:43 PM [...] with the ICU team and other medical/business info consultant staff, making frequent assessments and decisions [...] * Oxycodone Confirmation, Urine (06/13/2023 4:58 PM [facility]IL[facility]ER) Oxycodone Conf, Ur Does Not Confirm CutOff [...] needed. Performance characteristics were determined by the [facility] in a manner consistent with CLIA requirement and has not been cleared or approved by the U.S. Food and Drug Administration. Current interpretive data was last revised 2020. Urine 06/13/2023 4:58 PM [facility] [facility] 06/13/2023 5:12 PM [facility] [employer] Jae Toledo MD LAB URINE ORDERABLES Final Result [facility] Department [place] [address] * (ABNORMAL) Drugs of Abuse Screen, Urine with Reflex Confirmation (06/13/2023 4:58 PM [facility] [employer]) Amphetamine, ur Not Detected CutOff 500ng/mL [facility] Comment: Interpretive Data - Amphetamines: ??Samples containing greater than 500 ng/mL d-methamphetamine ??or other cross-reacting amphetamine compounds are reported as positive. ??Amphetamine immunoassays are subject to significant false positive rates due to cross-reactivity of non-amphetamine drugs. Confirmatory testing required for definitive results. Current Interpretive Data was last reviewed 2022. Barbiturates, ur Not Detected CutOff 200ng/mL [facility] Comment: Interpretive Data - Barbiturates: ??Samples containing greater than 200 ng/mL secobarbital or other cross-reacting barbiturate compounds are reported as positive. ??False positive and false negative results are possible. Confirmatory testing required for definitive results. Current Interpretive Data was last reviewed 2022. Benzodiazepines, ur Not Detected CutOff 100ng/mL [facility] Comment: Interpretive Data - Benzodiazepines: ??Samples containing greater than 100 ng/mL nordiazepam or other cross-reacting compounds are reported as positive. False positive and false negative results are possible. Confirmatory testing required for definitive results. Current Interpretive Data was last reviewed 2022. Cannabinoids, ur Screen Positive, presumptive (A) CutOff 50 ng/mL [facility] Comment: Interpretive Data - Cannabinoids: ??Samples containing greater than 50 ng/mL delta-9 THC -COOH or other cross-reacting compounds are reported as positive. ??False positive and false negative results are possible. ??Confirmatory testing required for definitive results. Current Interpretive Data was last reviewed 2022. Cocaine, ur Not Detected CutOff 150ng/mL [facility] Comment: Interpretive Data - Cocaine: ??Samples containing greater than 150 ng/mL benzoylecgonine or other cross-reacting compounds are reported as positive. False positive and false negative results are possible. Confirmatory testing required for definitive results. Current Interpretive Data was last reviewed 2022. Fentanyl, Ur Not Detected Cutoff 1 ng/mL [facility] Comment: Interpretive Data - Fentanyl: ??Samples containing greater than 1 ng/mL fentanyl or other cross-reacting fentanyl compounds are reported as positive. ??False positive and false negative results are possible. Confirmatory testing required for definitive results. Current Interpretive Data was last reviewed 2022. Methadone, ur Not Detected CutOff 300ng/mL [facility] Comment: Interpretive Data - Methadone: ??Samples containing greater than 300 ng/mL d,l-methadone or other cross-reacting compounds are reported as positive. ??False positive and false negative results are possible. Confirmatory testing required for definitive results. Current Interpretive Data was last reviewed 2022. Opiates, ur Not Detected CutOff 300ng/mL [facility] Comment: Interpretive Data - Opiates: ??Samples containing greater than 300 ng/mL morphine or other cross-reacting compounds are reported as positive. ??False positive and false negative results are possible. Confirmatory testing required for definitive results. Current Interpretive Data was last reviewed 2022. Oxycodone, ur Screen Positive, presumptive (A) CutOff 100ng/mL [facility] Comment: Interpretive Data - Oxycodone: ??Samples containing greater than 100 ng/mL oxycodone or other cross-reacting compounds are reported as ??positive. ??False positive and false negative results are possible. Confirmatory testing required for definitive results. Current Interpretive Data was last reviewed 2022. Phencyclidine, ur Not Detected CutOff 25 ng/mL [facility] Comment: Interpretive Data - Phencyclidine: ??Samples containing greater than 25 ng/mL phencyclidine or other cross-reacting compounds are reported as positive. ??False positive and false negative results are possible. Confirmatory testing required for definitive results. Current Interpretive Data was last reviewed 2022. Urine Creatinine 72 mg/dL [facility] Comment: Interpretive Data Urine Creatinine: < 10 mg/dL is extremely dilute = or > 10 but < 20 mg/dL is dilute = or > 20 mg/dL is normal Current Interpretive Data was last revised on 2017. Urine 06/13/2023 4:58 PM [facility] [facility] 06/13/2023 5:08 PM [facility] [employer] Narrative [facility] - 06/13/2023 5:55 PM [facility] Drug of Abuse screening is performed by immunoassay for medical purposes only. ??This is not to be used for Pain Management purposes. ??If Detected, confirmation testing will be performed for Amphetamines, Cocaine, Fentanyl, Methadone, Opiates, Oxycodone or Phencyclidine. Jae Toledo MD LAB URINE ORDERABLES Final Result Performing Organization Address [facility] de Phone Number [facility] [employer] [place] [address] * Troponin I high-sensitivity 4-hour (06/13/2023 4:58 PM [facility] [employer]) Trop I hs 5 <=35 ng/L [facility] Comment: Interpretive Data For further hscTnI resources including the diagnostic algorithm and an aid in interpretation, copy and paste this link: https://bjhlab.testcatalog.org/show/hsTrop-1 Current Interpretive Data last revised 2019. Trop I hs delta 1 ng/L [facility] Trop I hs interp Insignificant [facility] Blood 06/13/2023 4:58 PM [facility] [employer] 06/13/2023 5:12 PM [facility] [employer] Akash Spears MD LAB BLOOD ORDERABLES Sally l Result Performing Organization Address [facility] Co de Phone Number [facility] [place] [address] * AK ARTL CATHJ/CANNULJ MNTR/TRANSFUSION SPX PRQ (06/13/2023 4:41 PM [facility] [employer]) Narrative Nigel Meracdo MD - 06/13/2023 4:41 PM [facility] [employer] Torin Alas Jr., MD ? 06/13/2023 ??4:41 PM Arterial line Date/Time: 06/13/2023 4:41 PM Performed by: Torin Alas Jr., MD Authorized by: Nigel Mercado MD ?? [place] Protocol: ??RN Notified of Procedure: yes ?Informed [...] Troponin I high-sensitivity 2-hour (06/13/2023 2:42 PM [facility] [employer]) Trop I hs 5 <=35 ng/L [facility] Comment: Interpretive Data For further hscTnI resources including the diagnostic algorithm and an aid in interpretation, copy and paste this link: https://bjhlab.testcatalog.org/show/hsTrop-1 Current Interpretive Data last revised 2019. Trop I hs delta 1 ng/L [facility] Trop I hs interp Insignificant [facility] Blood 06/13/2023 2:42 PM [facility] 06/13/2023 2:59 PM [employer]ER us kAash Spears MD LAB BLOOD ORDERABLES Sally l Result [facility] Department [place] [address] * AK CRITICAL CARE ILL/INJURED PATIENT INIT 30-74 MIN (06/13/2023 2:39 PM [facility] [employer]) Narrative Guerrero De Los Santos MD - 06/13/2023 2:39 PM [facility] [employer] Guerrero De Los Santos MD ? 06/13/2023 [...] Respiratory pathogen panel Nasopharyngeal (06/13/2023 2:35 PM [facility] [employer] SIL[facility]ER) Pathologist [facility] Influenza A RNA Not Detected Not Detected [facility] Influenza B RNA Not Detected Not Detected [facility] RSV RNA Not Detected Not Detected [facility] COVID-19 RNA Not Detected Not Detected [facility] Coronavirus 229E RNA Not Detected Not Detected [facility] Coronavirus HKU1 RNA Not Detected Not Detected [facility] Coronavirus NL63 RNA Not Detected Not Detected [facility] Coronavirus OC43 RNA Not Detected Not Detected [facility] Adenovirus DNA Not Detected Not Detected [facility] Metapneumovirus RNA Not Detected Not Detected [facility] Rhinovirus/Enterov irus RNA Not Detected Not Detected [facility] Parainfluenza 1 RNA Not Detected Not Detected [facility] Parainfluenza 2 RNA Not Detected Not Detected [facility] Parainfluenza 3 RNA Not Detected Not Detected [facility] Parainfluenza 4 RNA Not Detected Not Detected [facility] B. pertussis DNA Not Detected Not Detected [facility] B. parapertussis DNA Not Detected Not Detected [facility] C. pneumoniae DNA Not Detected Not Detected [facility] M. pneumoniae DNA Not Detected Not Detected [facility] Nasopharyngeal 06/13/2023 2: 35 PM [facility]ER 06/13/2023 2:47 PM [facility] [employer] SIL[facility]ER Narrative [facility] - 06/13/2023 3:41 PM [facility] SIL[facility] Is the Patient experiencing symptoms consistent with COVID?->Unknown Reason for testing?->Bed placement or semi-private room Surveillance testing for transplant patient?->No ??Interpretive Data [employer] FilmArray Respiratory Panel (RP2.1) assay is a [...] assay has FDA clearance for testing of [employer] swabs. ??The performance of additional specimen types has been assessed by the performing laboratory. ??The performance characteristics of this assay have been determined by [facility] Infectious Disease [facility]. Current interpretive data was last revised on 22. Guerrero De Los Santos MD LAB MICROBIOLOGY - GENERAL ORDERABLES Final Result Performing Organization Address [facility]/ZIP Co de Phone Number [facility] [place] [address] * (ABNORMAL) Urinalysis, microscopic only (06/13/2023 2:07 PM GL[facility]IL[facility]ER) WBC, ur 0-5 0 - 5 /HPF [facility] RBC, ur 3-5(A) 0 - 2 /HPF [facility] Epithelial cells, squamous, ur 1-5 0 - 5 /HPF [facility] Bacteria, ur 1+(A) [facility] Mucous, ur Present(A) [facility] Hyaline casts, ur 6-10 0 - 10 /LPF [facility] Culture Reflex Comment Reflex conditions for urine culture (WBC >10) not met. [facility] Urine 06/13/2023 2:07 PM [facility] [employer]ER 06/13/2023 2:12 PM [employer] [employer]ER Akash Spears MD LAB URINE ORDERABLES Sally l Result Performing Organization Address [facility]/ZIP Co de Phone Number [facility] Department [place] [address] * (ABNORMAL) Urinalysis reflex to microscopic and culture Urine (06/13/2023 2:07 PM GL[facility] [employer] SIL[employer]ER) Color, ur Yellow Yellow [facility] Clarity, ur Clear Clear [facility] Specific gravity, ur >1.042(H) 1.003 - 1.030 [facility] pH, urine 6.0 [facility] Comment: Interpretive Data ? Urine pH is affected by diet, medications, systemic acid-base disturbances, and renal tubular function. ??pH may affect urinary stone formation. ??For example, urine pH below 6.0 may help reduce the tendency for calcium phosphate stones and pH greater than 6.0 may reduce the tendency for uric acid stone formation. Source: [facility] uTaP Current Interpretive Data was last revised on 2017 Protein, ur ql 1+(A) Negative [facility] Glucose, ur ql Negative Negative [facility] Ketones, ur Negative Negative [facility] Bilirubin, ur Negative Negative [facility] Blood, ur Trace(A) Negative [facility] Urobilinogen, ur <2.0 <2.0 mg/dL [facility] Nitrite, ur Negative Negative [facility] Leukocyte esterase, ur Negative Negative [facility] UA reflex comment Reflex to microscopic UA will be performed. [facility] Urine 06/13/2023 2:07 PM [facility] [employer] 06/13/2023 2:12 PM [employer] us Akash Spears MD LAB MICROBIOLOGY - GENERA L ORDERABLES Final Result [facility] Department [place] [address] * XR Chest 1 Vw Portable (06/13/2023 1:58 PM GLASS [employer]IL[facility]ER) Anatomical Region Laterality Modality Body, Chest N/A Computed Radiogr aphy 06/13/2023 2:10 PM [facility] [employer] Impressions 06/13/2023 2:10 PM [facility] [employer] Comparison is made to prior study dated [...] Heber Leos M.D. Narrative 06/13/2023 2:10 PM [facility] [employer] EXAMINATION: 1 view chest radiograph Procedure Note [...] CTA Chest Abdomen Pelvis (06/13/2023 1:47 PM GLASS [employer] SIL[employer]ER) Anatomical Region Laterality Modality Body N/A Computed Tomogra phy 06/13/2023 3:23 PM [facility] [employer] Impressions 06/13/2023 4:07 PM [facility] [employer] 1. ??45 mm x 48 mm thoracoabdominal [...] Collins Wills M.D. Narrative 06/13/2023 4:07 PM [facility] [employer] EXAMINATION: ??CT ANGIOGRAPHY OF THE CHEST, ABDOMEN [...] is 45 mm AP x 48 mm [id number]. ??This is stable since the prior exam. [...] is 45 mm AP x 48 mm [id number]. This is stable since the prior exam. [...] Spine W Contrast (C) (06/13/2023 1:47 PM [facility]ASS [employer] SIL[employer]ER) Anatomical Region Laterality Modality Spine N/A Computed Tomogra phy 06/13/2023 4:10 PM [facility] [employer]ER Impressions 06/13/2023 5:24 PM [facility] [employer] 1. ??No evidence for discitis-osteomyelitis or well-defined [...] Gus Su MD Narrative 06/13/2023 5:24 PM [facility] [employer] S[employer]ER EXAMINATION: 1. CT of the thoracic spine [...] Result * POCT creatinine (06/13/2023 1:20 PM [employer]ASS [employer] SIL[employer]ER) Creatinine POC 0.7 0.7 - 1.3 mg/dL [facility] Blood 06/13/2023 1:20 PM [employer] [employer] SIL[employer]ER 06/13/2023 1:20 PM [employer] [employer]ER Guerrero De Los Santos MD LAB POCT ORDERABLES - ROSIE CE Final Result [facility] Department [place] [address] * POCUS Cardiac (06/13/2023 1:19 PM [employer] SIL[employer]ER) Anatomical Region Laterality Modality Other 06/13/2023 12:4 1 PM [facility] [employer]ER Narrative 06/13/2023 1:52 PM [facility] [employer] Performed by: Nakita Holguin Cardiac: ?Exam type: [...] Retroperitoneal (AAA or Renal) (06/13/2023 1:18 PM [facility] [employer]IL[employer]ER) Anatomical Region Laterality Modality Other 06/13/2023 12:4 1 PM [facility]IL[employer]ER Narrative 06/13/2023 1:51 PM [facility] [employer]IL[employer]ER Performed by: Nakita Holguin v3 : ?Exam [...] surgical changesw/stent placement Electronically signed by Nakita Holguin on June 13t 1:27 PM I have reviewed the images & the resident's interpretation. I agree withthe findings. Electronically signed by GUERRERO DE LOS SANTOS on Tuesday, June 13, 2023 at1:51 PM I have reviewed the images & the resident's interpretation. I agree withthe findings. us Guerrero De Los Santos MD POCUS ORDERABLES Final Res ult * ECG 12-LEAD (06/13/2023 1:18 PM [facility]ASS [employer] SILVERER) Narrative [facility] - 06/13/2023 1:18 PM [facility] [employer] SIL[employer]ER Jae Toledo MD ? 06/13/2023 ??1:22 PM [...] present. ??There is no ST deviation. ?? [place] is leftward. Compared to previous, abnormal, but [...] LVH is present. There is no ST deviation.[place] is leftward. Compared to previous, abnormal, but no significant ischemic changescompared to previous. Jae Toledo MD Resident 06/13/23 1322 us Akash Spears MD ECG ORDERABLES Final Res ult Performing Organization Address City/[facility]/ZIP Co de Phone Number [facility] * eGFR (06/13/2023 1:07 PM GLASS [employer] SIL[employer]ER) eGFR >90 >=60 mL/min/1. 73 m2 [facility] Comment: Interpretive Data Reference Interval [...] last reviewed 2021. Blood 06/13/2023 1:07 PM [employer] [employer] SIL[employer]ER 06/13/2023 1:25 PM [employer] SIL[employer]ER us Akash Spears MD LAB BLOOD ORDERABLES Sally l Result Performing Organization Address City/[facility]/ZIP Co de Phone Number [facility] Department [place] [address] * (ABNORMAL) Differential, auto (06/13/2023 1:07 PM [facility] [employer]IL[employer]ER) Neutrophil abs 7.4(H) 1.5 - 6.5 K/cumm [facility] Imm gran abs 0.2(H) 0.0 - 0.1 K/cumm [facility] Lymphocyte abs 1.7 0.8 - 3.3 K/cumm [facility] Monocyte abs 1.1(H) 0.2 - 0.8 K/cumm [facility] Eosinophil abs 0.1 0.0 - 0.5 K/cumm [facility] Basophil abs 0.1 0.0 - 0.1 K/cumm [facility] Neutrophil pct 70.9 % [facility] Comment: Interpretive Data Percent cell count reference ranges are not reported, since discordance with absolute values may lead to misinterpretation of CBC data. Current Interpretive Data was last revised on 2017. Imm gran pct 1.5 % [facility] Comment: Interpretive Data Percent cell count reference ranges are not reported, since discordance with absolute values may lead to misinterpretation of CBC data. Current Interpretive Data was last revised on 2017. Lymphocyte pct 15.9 % [facility] Comment: Interpretive Data Percent cell count reference ranges are not reported, since discordance with absolute values may lead to misinterpretation of CBC data. Current Interpretive Data was last revised on 2017. Monocyte pct 10.5 % [facility] Comment: Interpretive Data Percent cell count reference ranges are not reported, since discordance with absolute values may lead to misinterpretation of CBC data. Current Interpretive Data was last revised on 2017. Eosinophil pct 0.7 % [facility] Comment: Interpretive Data Percent cell count reference ranges are not reported, since discordance with absolute values may lead to misinterpretation of CBC data. Current Interpretive Data was last revised on 2017. Basophil pct 0.5 % [facility] Comment: Interpretive Data Percent cell count reference ranges are not reported, since discordance with absolute values may lead to misinterpretation of CBC data. Current Interpretive Data was last revised on 2017. Blood 06/13/2023 1:07 PM [facility] [employer] SIL[employer]ER 06/13/2023 1:25 PM [facility] [employer] SIL[employer]ER Result [facility] Akash Spears MD LAB BLOOD ORDERABLES Sally l Result Performing Organization Address [facility] Co de Phone Number [facility] [place] [address] * (ABNORMAL) CRP (acute phase) (06/13/2023 1:07 PM GL[facility] [employer] SIL[employer]ER) CRP 155.8(H) <=10.0 mg/L [facility] Blood 06/13/2023 1:07 PM [employer] SIL[employer]ER 06/13/2023 1:25 PM [employer] SIL[employer]ER Result [facility] Akash Spears MD LAB BLOOD ORDERABLES Sally l Result Performing Organization Address [facility] de Phone Number [facility] [place] [address] * (ABNORMAL) Erythrocyte sedimentation rate (06/13/2023 1:07 PM GL[employer] SIL[employer]ER) Erythrocyte sedimentation rate 92(H) 1 - 15 mm/hr [facility] Blood 06/13/2023 1:07 PM [employer] SIL[employer]ER 06/13/2023 1:25 PM [employer] SIL[employer]ER Result [facility] Akash Spears MD LAB BLOOD ORDERABLES Sally l Result Performing Organization Address [facility] de Phone Number [facility] [place] [address] * Cortisol (06/13/2023 1:07 PM [employer] SIL[employer]ER) Cortisol 15.3 4.8 - 19.5 mcg/dL [facility] Comment: Interpretive Data: Morning hours 6-10 a.m. ??4.8 - 19.5 mcg/dL Afternoon hours 4-8 p.m. ??2.68 - 10.5 mcg/dL This analyte undergoes marked diurnal variation. Current interpretive data was last revised 21. Blood 06/13/2023 1:07 PM [facility] [employer] SIL[employer]ER 06/13/2023 1:25 PM [employer]IL[employer]ER Akash Spears MD LAB BLOOD ORDERABLES Sally l Result Performing Organization Address [facility] de Phone Number [facility] Department [place] [address] * (ABNORMAL) CBC with auto differential (06/13/2023 1:07 PM GLASS [employer] SILVERER) Pathologist [facility] WBC 10.5(H) 3.8 - 9.9 K/cumm [facility] Hgb 10.7(L) 13.0 - 17.5 g/dL [facility] Hct 34.2(L) 38.9 - 50.3 % [facility] Plt 462(H) 150 - 400 K/cumm [facility] MPV 9.2 9.1 - 12.3 fL [facility] RBC 3.78(L) 4.30 - 5.80 M/cumm [facility] MCV 90.5 81.3 - 96.4 fL [facility] MCH 28.3 27.1 - 33.3 pg [facility] MCHC 31.3(L) 32.3 - 35.7 g/dL [facility] RDW CV 13.7 11.1 - 14.9 % [facility] RDW SD 45.7 35.7 - 48.1 fL [facility] NRBC abs 0.00 0.00 - 0.01 K/cumm [facility] Blood 06/13/2023 1:07 PM [facility] 06/13/2023 1:25 PM [facility] Akash Spears MD LAB BLOOD ORDERABLES Sally l Result Performing Organization Address [facility] Co de Phone Number [facility] [place] [address] * (ABNORMAL) Comprehensive metabolic panel (06/13/2023 1:07 PM [facility]) Pathologist [facility] Sodium 139 135 - 145 mmol/L [facility] Potassium, pl 4.1 3.3 - 4.9 mmol/L [facility] Chloride 105 97 - 110 mmol/L [facility] CO2 23 22 - 32 mmol/L [facility] Anion gap 11 2 - 15 mmol/L [facility] BUN 16 6 - 25 mg/dL [facility] Creatinine 0.81 0.80 - 1.30 mg/dL [facility] Glucose 109 70 - 199 mg/dL [facility] Comment: Interpretive Data Fasting glucose [...] 2022. Calcium 9.6 8.5 - 10.3 mg/dL [facility] Bilirubin, total 0.3 0.1 - 1.2 mg/dL [facility] Protein, pl 9.0(H) 6.5 - 8.5 g/dL [facility] Albumin 3.8 3.5 - 5.0 g/dL [facility] Alk phos 118 40 - 130 Units/L [facility] ALT 29 7 - 55 Units/L [facility] AST 23 10 - 50 Units/L [facility] Blood 06/13/2023 1:07 PM [facility] 06/13/2023 1:25 PM [facility] [employer] us Akash Spears MD LAB BLOOD ORDERABLES Sally zhang Result [facility] One [facility] Department [place] [address] * (ABNORMAL) Protime-INR (06/13/2023 1:07 PM [facility]) Pathologist [facility] PT 14.9(H) 10.3 - 13.7 sec [facility] INR 1.31(H) 0.90 - 1.20 [facility] Comment: Interpretive data Oral anticoagulant therapeutic ranges: Venous thromboembolism prophylaxis or treatment: 2.0-3.0 CARDIOLOGY Standard range: 2.0-3.0 High-intensity range: 2.5-3.5 Refer to indication-specific guidelines for appropriate target ranges for prosthetic heart valve replacement. Current interpretive data was last revised on 2019. Blood 06/13/2023 1:07 PM [facility] 06/13/2023 1:26 PM [facility] [facility] Result [facility] Akash Spears MD LAB BLOOD ORDERABLES Sally l Result Performing Organization Address [facility] de Phone Number [facility] [employer] [place] [address] * (ABNORMAL) aPTT (06/13/2023 1:07 PM [facility]) Pathologist [facility] aPTT 40(H) 28 - 38 sec [facility] Comment: Interpretive Data Heparin therapeutic range: 66.0 - 100.0 seconds. Range based on correlation with therapeutic heparin activity range of 0.3 - 0.7 Units/mL. Current interpretive data was last revised on 2023. Blood 06/13/2023 1:07 PM [facility] 06/13/2023 1:26 PM [facility] Akash Spears MD LAB BLOOD ORDERABLES Sally l Result Performing Organization Address [facility] de Phone Number [facility] [place] [address] * Troponin I high-sensitivity series (baseline, 2hr, 4hr, 6hr) (06/13/2023 1:07 PM [facility]) Pathologist [facility] Trop I hs 4 <=35 ng/L [facility] Comment: Interpretive Data For further [facility] resources including the diagnostic algorithm and an aid in interpretation, copy and paste this link: [email or web address] Current Interpretive Data last revised 2019. Blood 06/13/2023 1:07 PM [facility] 06/13/2023 1:26 PM [facility] [employer] us Akash Spears MD LAB BLOOD ORDERABLES Sally leatha Result [facility] One [facility] Department [place] [address] * Blood culture Blood Peripheral (06/13/2023 1:07 PM [facility] [facility]) Report Final Report: No growth [facility] Blood (Peripheral) 06/13/2023 1:07 PM [facility] 06/13/2023 1:23 PM [facility]ative [facility]/17/[facility]23 4:01 PM [facility] From a different site than #1. Draw [...] organism identification may be performed using the Union[employer]ig[employer] Gram-Positive Blood Culture Assay. This assay detects microbial DNA in positive blood culture broth via hybridization of target DNA to capture oligonucleotides on a microarray. This assay has been cleared by the [place] Food and Drug Administration and its performance characteristics have been verified by the [facility]. 5. ?For questions about this culture, contact the Microbiology Laboratory at [phone]. Interpretive data was last revised on 2019. Akash Spears MD LAB MICROBIOLOGY - GENERA L ORDERABLES Final Result [facility] One [facility] Department [place] [address] * Blood culture Blood Peripheral (06/13/2023 1:07 PM [facility] [facility]) Report Final Report: No growth [facility] Blood (Peripheral) 06/13/2023 1:07 PM [facility] 06/13/2023 1:23 PM [facility] [facility] Narrative [facility] - 06/17/2023 4:01 PM [facility] [facility] Draw Blood cultures before administration of Antibiotics [...] organism identification may be performed using the [employer] Gram-Positive Blood Culture Assay. This assay detects microbial DNA in positive blood culture broth via hybridization of target DNA to capture oligonucleotides on a microarray. This assay has been cleared by the [place] Food and Drug Administration and its performance characteristics have been verified by the [facility]. 5. ?For questions about this culture, contact the Microbiology Laboratory at [phone]. Interpretive data was last revised on 2019. us Akash Spears MD LAB MICROBIOLOGY - GENERA L ORDERABLES Final Result [facility] One [facility] Department [place] [address] documented in this encounter Visit Diagnoses Diagnosis [...] For 3 days Given 06/16/2023 11:14 AM [facility] 1,000 mg Given 06/16/2023 5:52 AM [facility] [facility] 1,000 mg Given 06/16/2023 12:00 AM [facility] [facility] 1,000 mg acetaminophen (TYLENOL) tablet 1,000 mg 1,000 mg, oral, Every 6 hours scheduled, First dose on 06/18/23 at 1230 Given 06/25/2023 12:30 PM [facility] [facility] 1,000 mg Given 06/25/2023 5:15 AM [facility] [facility] 1,000 mg Given 06/24/2023 11:52 PM [facility] [employer] 1,000 mg amLODIPine (NORVASC) tablet 10 mg 10 mg, oral, Daily, First dose on Tue06/15/23 at 0900 Given 06/25/2023 8:24 AM [facility] [facility] 10 mg Given 06/24/2023 8:10 AM [facility] 10 mg Given 06/23/2023 8:11 AM [facility] 10 mg captopriL (CAPOTEN) tablet 12.5 mg 12.5 mg, oral, 3 times daily, First dose (after last modification) on Catarina 06/16/23 at 1615 Given 06/16/2023 8:18 PM [facility] [facility] 12.5 mg Given 06/16/2023 4:53 PM [facility] [employer] 12.5 mg captopriL (CAPOTEN) tablet 12.5 mg 12.5 mg, oral, Once, On Tue06/17/23 at 0200, For 1 dose Given 06/17/2023 1:28 AM [facility] [facility] 12.5 mg captopriL (CAPOTEN) tablet 25 mg 25 mg, oral, 3 times daily, First dose (after last modification) on Tue06/17/23 at 0900 Given 06/18/2023 8:13 PM [facility] [facility] 25 mg Given 06/18/2023 4:02 PM [facility] [employer] 25 mg Given 06/18/2023 8:30 AM [facility] 25 mg captopriL (CAPOTEN) tablet 25 mg 25 mg, oral, Once, On Tue06/19/23 at 0145, For 1 dose Given 06/19/2023 1:05 AM [facility] [facility] 25 mg captopriL (CAPOTEN) tablet 50 mg 50 mg, oral, 3 times daily, First dose (after last modification) on Tue06/19/23 at 0900, For 11 doses Given 06/22/2023 9:07 PM [facility] [facility] 50 mg Given 06/22/2023 4:02 PM [facility] 50 mg Given 06/22/2023 8:31 AM [facility] 50 mg captopriL (CAPOTEN) tablet 6.25 mg 6.25 mg, oral, 3 times daily, First dose on Tue06/16/23 at 1100 Given 06/16/2023 12:55 PM [facility] [facility] 6.25 mg Carrier Fluids for Secondary Infusion - 0.9% Sodium Chloride 30 mL, intravenous, As needed, For priming tubing and/or flushing, Starting on Tue06/13/23 at 1818, 0-250ml/hr to flush line after IV infusions when no maintenance IV ordered. Infuse 30mL at the same rate as the secondary infusion. Run as primary IV, not intended for KVO Given 06/17/2023 1:29 AM [facility] 30 mL Given 06/14/2023 9:53 PM [facility] 30 mL carvediloL (COREG) tablet 12.5 mg 12.5 mg, oral, Once, On Tue06/14/23 at 1230, For 1 dose Given 06/14/2023 12:15 PM [facility] [facility] 12.5 mg carvediloL (COREG) tablet 25 mg 25 mg, oral, 2 times daily with meals (bkfst, dinner), First dose on Tue06/13/23 at 1800 Given 06/14/2023 7:19 AM [facility] [facility] 25 mg Given 06/13/2023 4:53 PM [facility] [employer] 25 mg carvediloL (COREG) tablet 37.5 mg 37.5 mg, oral, 2 times daily with meals (bkfst, dinner), First dose (after last modification) on Tue06/14/23 at 1800 Given 06/25/2023 8:24 AM [facility] 37.5 mg Given 06/24/2023 5:48 PM [facility] [employer] [facility] 37.5 mg Given 06/24/2023 8:10 AM [facility] [facility] 37.5 mg cefepime (MAXIPIME) 2,000 mg/20 mL in sterile water (premix) 2,000 mg 2,000 mg, intravenous, at 240 mL/hr, Administer over 5 Minutes, Every 8 hours scheduled, First dose on Tue06/13/23 at 1830, Indications: Bone/Joint InfectionIndications:Bone/Joint Infection New Bag 06/18/2023 1:31 PM [facility] [facility] 2,000 mg 240 mL/hr New Bag 06/18/2023 5:12 AM [facility] [facility] 2,000 mg 240 mL/hr Rate/Dose Verify 06/18/2023 12:00 AM [facility] 240 mL /hr clevidipine (CLEVIPREX) 50 mg/100 [...] hours., Routine Rate/Dose Change 06/19/2023 6:03 AM [facility] 7 mg/hr 14 mL/hr Rate/Dose Verify 06/19/2023 6:00 AM [facility] [facility] 10 mg/hr 20 mL/h r Rate/Dose Change 06/19/2023 5:52 AM [facility] [facility] 10 mg/hr 20 mL/h r cloNIDine (CATAPRES) tablet 0.1 mg 0.1 mg, oral, 2 times daily, First dose (after last modification) on Tue06/19/23 at 0530, On hold since Tue06/21/2023 at 1617 until manually unheld Given 06/21/2023 8:14 AM [facility] 0.1 mg Given 06/20/2023 8:41 PM [facility] [employer] 0.1 mg Given 06/20/2023 8:16 AM [facility] 0.1 mg dexmedeTOMIDine in 0.9% sodium chloride [...] +1, Routine Rate/Dose Verify 06/16/2023 5:00 AM [facility] 0.4 mcg/kg/hr 10.1 mL/hr Rate/Dose Change 06/16/2023 4:03 AM [facility] [facility] 0.4 mcg/kg/hr 10.1 mL/hr Rate/Dose Verify 06/16/2023 4:00 AM [facility] [facility] 0.2 mcg/kg/hr 5.05 mL/hr dilTIAZem (CARDIZEM) tablet 30 mg 30 mg, oral, Every 6 hours, First dose on Tue06/17/23 at 1030 Given 06/20/2023 10:00 PM [facility] [facility] 30 mg Given 06/20/2023 5:25 PM [facility] [employer] 30 mg Given 06/20/2023 10:42 AM [facility] [employer] 30 mg docusate sodium (COLACE) capsule 100 mg 100 mg, oral, 2 times daily, First dose on Tue06/13/23 at 2100, Hold for diarrhea., Indications: constipationIndications:constipation Given 06/25/2023 8:24 AM [facility] 100 mg Given 06/23/2023 8:11 AM [facility] [employer] 100 mg Given 06/22/2023 9:08 PM [facility] [employer] 100 mg enoxaparin (LOVENOX) syringe 40 mg 40 mg, subcutaneous, Daily (for enoxaparin), First dose on Tue06/13/23 at 2100, Indications: Deep Vein Thrombosis PreventionIndications:Deep Vein Thrombosis Prevention Given 06/24/2023 8:57 PM [facility] [facility] 40 mg Right Upper Arm Given 06/23/2023 8:53 PM [facility] [employer] 40 mg Le ft Lower Abdomen Given 06/22/2023 9:08 PM [facility] 40 mg Le ft Lower Abdomen esmolol [...] bpm, Routine Rate/Dose Verify 06/14/2023 5:00 PM [facility] [facility] 150 mcg/kg/min 87.8 mL/hr Rate/Dose Verify 06/14/2023 4:00 PM [facility] [employer] 150 mcg/kg/min 87. 8 mL/hr Rate/Dose Verify 06/14/2023 3:00 PM [facility] [employer] 150 mcg/kg/min 87. 8 mL/hr esmolol in [...] manually unheld Rate/Dose Verify 06/15/2023 9:00 AM [facility] [facility] 300 mcg/kg/min 175.5 mL/hr Rate/Dose Verify 06/15/2023 8:00 AM [facility] [employer] 300 mcg/kg/min 175 .5 mL/hr New Bag 06/15/2023 7:33 AM [facility] 300 mcg/kg/min 175.5 mL/ hr gabapentin (NEURONTIN) capsule 300 mg 300 mg, oral, 3 times daily, First dose on Tue06/15/23 at 0900 Given 06/24/2023 8:10 AM [facility] [employer] 300 mg Given 06/23/2023 8:53 PM [facility] 300 mg Given 06/23/2023 4:05 PM [facility] 300 mg gadoterate meglumine injection 20 mL 20 mL, intravenous, Once in imaging, contrast, Starting on Tue06/16/23 at 0420, For 1 dose Contrast Given 06/16/2023 4:41 AM [facility] 20 mL hydrALAZINE (APRESOLINE) injection 10 mg 10 mg, intravenous, Administer over 2 Minutes, Once, On Tue06/13/23 at 1650, For 1 dose Given 06/13/2023 4:55 PM [facility] 10 mg hydrALAZINE (APRESOLINE) tablet 100 mg 100 mg, oral, 3 times daily, First dose (after last modification) on Tue06/13/23 at 2100, Indications: hypertension, On hold since Tue06/21/2023 at 1617 until manually unheldIndications:hypertension Given 06/21/2023 8:14 AM [facility] [facility] 100 mg Given 06/20/2023 8:45 PM [facility] 100 mg Given 06/20/2023 4:59 PM [facility] 100 mg hydrALAZINE (APRESOLINE) tablet 25 mg 25 mg, oral, 3 times daily, First dose on Tue06/13/23 at 1649, Indications: hypertensionIndications:hypertension Given 06/13/2023 4:53 PM [facility] 25 mg hydrALAZINE (APRESOLINE) tablet 25 mg 25 mg, oral, 3 times daily, First dose (after last modification) on Tue06/22/23 at 2100, Indications: hypertensionIndications:hypertension Given 06/23/2023 8:12 AM [facility] [employer] 25 mg Given 06/22/2023 9:07 PM [facility] 25 mg hydrALAZINE (APRESOLINE) tablet 50 mg 50 mg, oral, 3 times daily, First dose (after last modification) on Catarina 06/23/23 at 1600, Indications: hypertensionIndications:hypertension Given 06/25/2023 8:23 AM [facility] 50 mg Given 06/24/2023 8:57 PM [facility] 50 mg Given 06/24/2023 4:09 PM [facility] [employer] 50 mg HYDROmorphone (DILAUDID) 0.5 mg/0.5 mL injection - ADS Override Pull Starting on Tue06/22/23 at 1816, For 1 dose, Created by maryam fritzide HYDROmorphone (DILAUDID) injection 0.5 mg 0.5 mg, intravenous, Administer over 2 Minutes, Every 2 hours PRN, breakthrough pain, Starting on Tue06/20/23 at 1000 Given 06/21/2023 6:41 AM [facility] [facility] 0.5 mg Given 06/21/2023 12:32 AM [facility] [employer] 0.5 mg Given 06/20/2023 10:00 PM [facility] [employer] 0.5 mg HYDROmorphone (DILAUDID) injection 0.5 mg 0.5 mg, intravenous, Administer over 2 Minutes, Every 6 hours PRN, breakthrough pain, Starting on Tue06/22/23 at 1821 Given 06/23/2023 3:38 AM [facility] [employer] 0.5 mg Given 06/22/2023 6:35 PM [facility] 0.5 mg HYDROmorphone (DILAUDID) injection 1 mg 1 mg, intravenous, Administer over 2 Minutes, Every 3 hours PRN, 1st line for pain, Starting on Tue06/13/23 at 1253 Given 06/13/2023 7:33 PM [facility] [employer] 1 mg Given 06/13/2023 4:42 PM [facility] [employer] 1 mg Given 06/13/2023 12:56 PM [facility] [employer] 1 mg HYDROmorphone (DILAUDID) injection 1 mg 1 mg, intravenous, Administer over 2 Minutes, Once, On Tue06/13/23 at 2200, For 1 dose Given 06/13/2023 9:36 PM [facility] 1 m g HYDROmorphone (DILAUDID) injection 1 mg 1 mg, intravenous, Administer over 2 Minutes, Once, On Tue06/13/23 at 2315, For 1 dose Given 06/13/2023 10:56 PM [facility] 1 mg HYDROmorphone (DILAUDID) injection 1 mg 1 mg, intravenous, Administer over 2 Minutes, Every 2 hours PRN, breakthrough pain, Starting on Tue06/14/23 at 0115 Given 06/20/2023 9:01 AM [facility] [employer] 1 mg Given 06/20/2023 6:31 AM [facility] 1 mg Given 06/19/2023 10:22 PM [facility] 1 mg HYDROmorphone (DILAUDID) injection 1.5 mg 1.5 mg, intravenous, Administer over 2 Minutes, Every 3 hours PRN, 1st line for pain, Starting on Tue06/13/23 at 1425 Given 06/13/2023 2:34 PM [facility] 1.5 mg hydrOXYzine (ATARAX) tablet 25 mg 25 mg, oral, Once, On Tue06/14/23 at 2200, For 1 dose Given 06/14/2023 9:21 PM [employer] 25 mg ioversoL (OPTIRAY 350) syringe 100 mL 100 mL, intravenous, Once in imaging, contrast, Starting on Tue06/13/23 at 1336, For 1 dose Contrast Given 06/13/2023 2:35 PM [facility] 90 mL ketorolac (TORADOL) 30 mg/mL (1 mL) injection 15 mg 15 mg, intravenous, Once, On [facility] 06/23/23 at 1100, For 1 dose Given 06/23/2023 10:45 AM [facility] 15 mg labetaloL (NORMODYNE,TRANDATE) injection 20 mg 20 mg, intravenous, at 120 mL/hr, Administer over 2 Minutes, Once, On Tue06/13/23 at 1254, For 1 dose Given 06/13/2023 12:56 PM [employer] 20 mg 120 mL/hr labetaloL (NORMODYNE,TRANDATE) injection 20 mg 20 mg, intravenous, at 120 mL/hr, Administer over 2 Minutes, Every 4 hours PRN, high blood pressure, for SBP >170, Starting on Tue06/13/23 at 1429 Given 06/15/2023 3:31 PM [facility] 20 mg 120 mL/hr Given 06/15/2023 10:20 AM [facility] 20 mg 120 mL/hr Given 06/14/2023 7:44 PM [facility] 20 mg 120 mL/hr labetaloL (NORMODYNE,TRANDATE) injection 20 mg 20 mg, intravenous, at 120 mL/hr, Administer over 2 Minutes, Every 2 hours PRN, high blood pressure, for SBP >170, Starting on Tue06/15/23 at 1600 Given 06/19/2023 2:49 AM [facility] [employer] 20 mg 120 mL/hr Given 06/17/2023 10:16 AM [facility] 20 mg 120 mL/hr Given 06/17/2023 1:29 AM [employer] 20 mg 120 mL/hr labetaloL (NORMODYNE,TRANDATE) injection 40 mg 40 mg, intravenous, at 240 mL/hr, Administer over 2 Minutes, Once, On Tue06/19/23 at 0400, For 1 dose Given 06/19/2023 3:34 AM [facility] 40 mg 240 mL/hr labetaloL (NORMODYNE,TRANDATE) injection 40 mg 40 mg, intravenous, at 240 mL/hr, Administer over 2 Minutes, Once, On Tue06/19/23 at 0500, For 1 dose Given 06/19/2023 4:26 AM [facility] 40 mg 240 mL/hr labetaloL (NORMODYNE,TRANDATE) injection 5 mg 5 mg, intravenous, at 30 mL/hr, Administer over 2 Minutes, Every 2 hours PRN, high blood pressure, for SBP >140, Starting on Tue06/22/23 at 1759 Given 06/22/2023 6:11 PM [facility] [employer] 5 mg 30 mL/hr Lactated Ringer's (LR) bolus 500 mL 500 mL, intravenous, Once, On Tue06/21/23 at 1215, For 1 dose New Bag 06/21/2023 12:08 PM [facility] [employer] [facility] 500 mL Lactated Ringer's (LR) infusion 10 mL/hr, intravenous, Continuous, Starting on Tue06/13/23 at 1900 New Bag 06/21/2023 11:31 AM [facility] [facility] 10 mL/hr 10 mL/hr Rate/Dose Verify 06/13/2023 9:00 PM [facility] [employer] [facility] 10 mL/hr 10 mL/h r Rate/Dose Verify 06/13/2023 8:00 PM [facility] [employer] 10 mL/hr 10 mL/h r lidocaine (ASPERCREME) 4 % patch 2 patch 2 patch, transdermal, Administer over 12 Hours, Every 24 hours, First dose on Tue06/18/23 at 1230, Apply to affected area: back Medication Applied 06/20/2023 12:44 PM [facility] 2 patches Back Medication Applied 06/19/2023 11:46 AM [facility] [employer] [facility] 2 patches Other (Comment) Medication Applied 06/18/2023 11:57 AM [facility] 2 patches Other (Comment) lidocaine (ASPERCREME) 4 % patch 3 patch 3 patch, transdermal, Administer over 12 Hours, Every 24 hours, First dose (after last modification) on Tue06/21/23 at 1230, Apply to affected area: back Medication Applied 06/23/2023 12:11 PM [facility] 3 patches Back Medication Applied 06/22/2023 12:27 PM [facility] 3 patches Back Medication Applied 06/21/2023 1:17 PM [facility] 3 patches Back lisinopriL (PRINIVIL,ZESTRIL) tablet 20 mg 20 mg, oral, Daily, First dose on Tue06/23/23 at 0900 Given 06/25/2023 8:24 AM [facility] [facility] 20 mg Given 06/24/2023 8:10 AM [employer] 20 mg Given 06/23/2023 8:10 AM [facility] 20 mg LORazepam (ATIVAN) injection 1 mg 1 mg, intravenous, Once, On Tue06/16/23 at 0415, For 1 dose, For IV administration, draw up ordered admin dose/volume, then dilute with equal volume of 0.9% sodium chloride and administer total volume to patient. Do not exceed a rate of 2 mg/minute. Given 06/16/2023 3:38 AM [facility] [facility] 1 mg magnesium citrate oral solution 296 mL 296 mL, oral, Once, On Tue06/17/23 at 0745, For 1 dose Given 06/17/2023 10:29 AM [facility] 296 mL magnesium oxide (MAG-OX) tablet 800 mg 800 mg, oral, Once, On Tue06/15/23 at 0800, For 1 dose, 1 tablet = Magnesium oxide 400 mg = 241.3 mg elemental magnesium, Indications: hypomagnesemiaIndications:hypomagnesemia Given 06/15/2023 8:40 AM [facility] [facility] 800 mg magnesium sulfate 2 g/50 mL in water (premix) 2 g 2 g, intravenous, Administer over 60 Minutes, Once, On Tue06/14/23 at 2200, For 1 dose New Bag 06/14/2023 9:50 PM [facility] [employer] [facility] 2 g magnesium sulfate 2 g/50 mL in water (premix) 2 g 2 g, intravenous, Administer over 60 Minutes, Once, On Tue06/17/23 at 0200, For 1 dose New Bag 06/17/2023 1:28 AM [facility] [facility] 2 g methocarbamoL (ROBAXIN) tablet 1,000 mg 1,000 mg, oral, Every 8 hours, First dose (after last modification) on Tue06/21/23 at 1615 Given 06/25/2023 8:23 AM [facility] 1,000 mg Given 06/24/2023 11:52 PM [facility] [facility] 1,000 mg Given 06/24/2023 4:10 PM [facility] 1,000 mg methocarbamoL (ROBAXIN) tablet 750 mg 750 mg, oral, 4 times daily, First dose on Tue06/14/23 at 1200 Given 06/21/2023 8:15 AM [facility] [facility] 750 mg Given 06/20/2023 8:40 PM [facility] 750 mg Given 06/20/2023 5:25 PM [facility] 750 mg niCARdipine in sodium chloride 0.9% [...] instructions., Routine Rate/Dose Change 06/13/2023 4:18 PM [facility] 2.5 mcg/kg/min 146.3 mL/hr Rate/Dose Change 06/13/2023 3:34 PM [facility] 1.5 mcg/kg/min 87. 8 mL/hr Rate/Dose Change 06/13/2023 3:19 PM [facility] 1 mcg/kg/min 58.5 mL/hr ondansetron (ZOFRAN) injection 4 mg 4 mg, intravenous, Administer over 2 Minutes, Every 6 hours PRN, nausea, vomiting, Starting on Tue06/13/23 at 1818, Administer no sooner than 6 hours after last dose. Given 06/15/2023 8:41 AM [facility] 4 mg Given 06/14/2023 2:22 PM [facility] [facility] 4 mg Given 06/14/2023 7:56 AM [facility] [facility] 4 mg oxyCODONE (ROXICODONE) tablet 10 mg 10 mg, oral, Every 4 hours PRN, 1st line for pain, Starting on Tue06/14/23 at 1031, Indications: PainIndications:Pain Given 06/17/2023 6:39 AM [facility] [facility] 10 mg Given 06/17/2023 2:38 AM [facility] 10 mg Given 06/16/2023 10:22 PM [employer] 10 mg oxyCODONE (ROXICODONE) tablet 10 mg 10 mg, oral, Every 4 hours PRN, 1st line for pain, Starting on Tue06/21/23 at 0955, Indications: PainIndications:Pain Given 06/22/2023 6:07 AM [employer] 10 mg Given 06/22/2023 1:22 AM [employer] 10 mg Given 06/21/2023 9:30 PM [employer] 10 mg oxyCODONE (ROXICODONE) tablet 10 mg 10 mg, oral, Once, On Tue06/23/23 at 2015, For 1 dose, Indications: PainIndications:Pain Given 06/23/2023 8:01 PM [employer] 10 mg oxyCODONE (ROXICODONE) tablet 10 mg 10 mg, oral, Every 4 hours PRN, 1st line for pain, Starting on Tue06/23/23 at 1941, Indications: PainIndications:Pain Given 06/24/2023 7:19 AM [employer] 10 mg Given 06/24/2023 3:01 AM [employer] 10 mg Given 06/23/2023 11:31 PM [employer] 10 mg oxyCODONE (ROXICODONE) tablet 10 mg 10 mg, oral, Every 3 hours PRN, 1st line for pain, Starting on Tue06/24/23 at 1100, Indications: PainIndications:Pain Given 06/25/2023 12:19 PM [facility] SILVERER 10 mg Given 06/25/2023 8:23 AM GLASS BULB SILVERER 10 mg Given 06/25/2023 5:15 AM GLASS BULB SILVERER 10 mg oxyCODONE (ROXICODONE) tablet 15 mg 15 mg, oral, Every 4 hours PRN, 1st line for pain, Starting on Tue06/17/23 at 1017, Indications: PainIndications:Pain Given 06/21/2023 6:40 AM GLASS BULB SILVERER 15 mg Given 06/21/2023 12:36 AM GLASS BULB SILVERER 15 mg Given 06/20/2023 7:13 PM GLASS BULB SILVERER 15 mg oxyCODONE (ROXICODONE) tablet 5 mg 5 mg, oral, Every 4 hours PRN, 1st line for pain, Starting on Tue06/13/23 at 1825, Indications: PainIndications:Pain Given 06/14/2023 7:19 AM GLASS BULB SILVERER 5 mg Given 06/13/2023 6:51 PM GLASS BULB SILVERER 5 mg oxyCODONE (ROXICODONE) tablet 5 mg 5 mg, oral, Once, On Tue06/13/23 at 2200, For 1 dose, Indications: PainIndications:Pain Given 06/13/2023 9:36 PM GLASS BULB SILVERER 5 mg oxyCODONE (ROXICODONE) tablet 5 mg 5 mg, oral, Once, On Tue06/24/23 at 0615, For 1 dose, Indications: PainIndications:Pain Given 06/24/2023 5:36 AM GLASS BULB SILVERER 5 mg oxyCODONE (ROXICODONE) tablet 7.5 mg 7.5 mg, oral, Every 4 hours PRN, 1st line for pain, Starting on Tue06/22/23 at 1025, Indications: PainIndications:Pain Given 06/23/2023 4:03 PM GLASS BULB SILVERER 7.5 mg Given 06/23/2023 12:22 PM GLASS BULB SILVERER 7.5 mg Given 06/23/2023 8:12 AM GLASS BULB SILVERER 7.5 mg polyethylene glycol (MIRALAX) packet 17 g 17 g, oral, 2 times daily, First dose (after last modification) on Tue06/16/23 at 0900, Hold for diarrhea, Indications: constipationIndications:constipation Given 06/25/2023 8:23 AM GLASS BULB SILVERER 17 g Given 06/22/2023 9:08 PM GLASS BULB SILVERER 17 g Given 06/22/2023 8:29 AM GLASS BULB SILVERER 17 g potassium chloride 40 mEq/520 mL in sodium chloride 0.9% (premix) 40 mEq 40 mEq, intravenous, at 130 mL/hr, Administer over 4 Hours, Once, On Catarina 06/16/23 at 0215, For 1 dose, Indications: hypokalemiaIndications:hypokalemia New Bag 06/16/2023 2:00 AM GLASS BULB SILVERER 40 mEq 130 mL/hr potassium chloride ER [...] crushed or chewed. Given 06/16/2023 10:22 PM GLASS BULB SILVERER 20 mEq potassium chloride ER (KLOR-CON) extended release tablet 20 mEq 20 mEq, oral, Once, On Tue06/17/23 at 0200, For 1 dose, Tablets should not be crushed, chewed, dissolved, or otherwise manipulated. Capsules may be opened and sprinkled on a spoonful of applesauce or pudding, but the contents of the capsule should not be crushed or chewed. Given 06/17/2023 1:28 AM GLASS BULB SILVERER 20 mEq potassium chloride ER (KLOR-CON) extended release tablet 40 mEq 40 mEq, oral, Once, On Tue06/16/23 at 0730, For 1 dose, Tablets should not be crushed, chewed, dissolved, or otherwise manipulated. Capsules may be opened and sprinkled on a spoonful of applesauce or pudding, but the contents of the capsule should not be crushed or chewed. Given 06/16/2023 7:26 AM GLASS BULB SILVERER 40 mEq potassium chloride ER (KLOR-CON) extended release tablet 40 mEq 40 mEq, oral, Once, On Tue06/16/23 at 1130, For 1 dose, Tablets should not be crushed, chewed, dissolved, or otherwise manipulated. Capsules may be opened and sprinkled on a spoonful of applesauce or pudding, but the contents of the capsule should not be crushed or chewed. Given 06/16/2023 11:14 AM GLASS BULB SILVERER 40 mEq potassium chloride ER (KLOR-CON) extended release tablet 40 mEq 40 mEq, oral, Once, On Tue06/16/23 at 1230, For 1 dose, Tablets should not be crushed, chewed, dissolved, or otherwise manipulated. Capsules may be opened and sprinkled on a spoonful of applesauce or pudding, but the contents of the capsule should not be crushed or chewed. Given 06/16/2023 12:27 PM GLASS BULB SILVERER 40 mEq potassium chloride ER (KLOR-CON) extended release tablet 40 mEq 40 mEq, oral, Once, On Tue06/19/23 at 1200, For 1 dose, Tablets should not be crushed, chewed, dissolved, or otherwise manipulated. Capsules may be opened and sprinkled on a spoonful of applesauce or pudding, but the contents of the capsule should not be crushed or chewed. Given 06/19/2023 11:46 AM GLASS BULB SILVERER 40 mEq pregabalin (LYRICA) capsule 75 mg 75 mg, oral, 2 times daily, First dose on Tue06/24/23 at 1415 Given 06/25/2023 8:24 AM GLASS BULB SILVERER 75 mg Given 06/24/2023 8:57 PM GLASS BULB SILVERER 75 mg Given 06/24/2023 2:11 PM GLASS BULB SILVERER 75 mg prochlorperazine (COMPAZINE) injection 10 mg 10 mg, intravenous, Administer over 2 Minutes, Once, On Tue06/14/23 at 1845, For 1 dose Given 06/14/2023 6:07 PM GLASS BULB SILVERER 10 mg prochlorperazine (COMPAZINE) injection 5 mg 5 mg, intravenous, Administer over 2 Minutes, Once, On Tue06/14/23 at 0230, For 1 dose Given 06/14/2023 2:00 AM GLASS BULB SILVERER 5 m g QUEtiapine (SEROquel) tablet 25 mg 25 mg, oral, Nightly, First dose (after last modification) on Tue06/22/23 at 2100 Given 06/22/2023 9:07 PM GLASS BULB SILVERER 25 mg QUEtiapine (SEROquel) tablet 50 mg 50 mg, oral, Nightly, First dose on Tue06/15/23 at 2100 Given 06/21/2023 9:30 PM GLASS BULB SILVERER 50 mg Given 06/20/2023 8:40 PM GLASS BULB SILVERER 50 mg Given 06/19/2023 8:32 PM GLASS BULB SILVERER 50 mg senna (SENOKOT) tablet 1 tablet 1 tablet, oral, 2 times daily, First dose on Tue06/13/23 at 2100, Hold for diarrhea., Indications: constipationIndications:constipation Given 06/25/2023 8:24 AM GLASS BULB SILVERER 1 table t Given 06/23/2023 8:10 AM GLASS BULB SILVERER 1 tablet Given 06/22/2023 9:07 PM GLASS BULB SILVERER 1 tablet sodium chloride 0.9% solution 3-12 mL/hr, intra-catheter, Continuous, Starting on Tue06/13/23 at 1900, Amount needed for invasive pressure monitoring with 300 mg Hg to maintain patency. Rate/Dose Verify 06/24/2023 8:00 AM GLASS BULB SILVERER 3 mL/hr 3 mL/hr Rate/Dose Verify 06/22/2023 2:00 PM GLASS BULB SILVERER 3 mL/hr 3 mL/hr Rate/Dose Verify 06/22/2023 7:00 AM GLASS BULB SILVERER 3 mL/hr 3 mL/hr spironolactone (ALDACTONE) tablet 25 mg 25 mg, oral, Daily, First dose on Tue06/18/23 at 1145, On hold since Tue06/22/2023 at 0821 until manually unheld Given 06/21/2023 8:15 AM GLASS BULB SILVERER 25 mg Given 06/20/2023 8:16 AM GLASS BULB SILVERER 25 mg Given 06/19/2023 8:16 AM GLASS BULB SILVERER 25 mg tamsulosin (FLOMAX) extended release capsule 0.4 mg 0.4 mg, oral, Daily with dinner, First dose on Tue06/18/23 at 1800, Do not crush, chew, cut, dissolve, open or otherwise manipulate tablet/capsule. Given 06/24/2023 5:48 PM GLASS BULB SILVERER 0.4 mg Given 06/23/2023 5:54 PM GLASS BULB SILVERER 0.4 mg Given 06/22/2023 5:00 PM GLASS BULB SILVERER 0.4 mg traZODone (DESYREL) tablet 50 mg 50 mg, oral, Nightly PRN, sleep, Starting on Tue06/21/23 at 2232 Given 06/24/2023 9:50 PM GLASS BULB SILVERER 50 mg Given 06/23/2023 8:53 PM GLASS BULB SILVERER 50 mg Given 06/22/2023 9:07 PM GLASS BULB SILVERER 50 mg vancomycin 1500 mg/515 mL in sodium chloride 0.9% (premix) 1,500 mg 1,500 mg (rounded from 1,462.5 mg = 15 mg/kg ? 97.5 kg), intravenous, Administer over 90 Minutes, Every 8 hours, First dose (after last modification) on Tue06/13/23 at 1830, Indications: Bone/Joint InfectionIndications:Bone/Joint Infection New Bag 06/18/2023 10:05 AM GLASS BULB SILVERER 1,500 mg New Bag 06/18/2023 1:57 AM GLASS BULB SILVERER 1,500 mg New Bag 06/17/2023 6:14 PM GLASS BULB SILVERER 1,500 mg documented in this encounter Discontinued [...] Recently Administered Medications Times are shown in GLASS BULB SILVERER. Scheduled Medication Order 06/23/2023 06/24/2023 06/25/2023 acetaminophen [...] Dc An, RN) 0810 (Given - Provider: Roge Tolbert, BRIA)1609 (Given - Provider: Angelica Costa, [...] 0304 (Medication Removed - Provider: Dc An, RBIA)1132 (Not Given - Provider: Roge Tolbert, BRIA - Reason: Patient/family refused) 1307 (Not Given - Provider: Dc Edwards, BRIA - Reason: Order parameters not met) lisinopriL (PRINIVIL,ZESTRIL) tablet 20 mg 20 mg, oral, Daily, First dose on Tue06/23/23 at 0900 0810 (Given - Provider: Cayla Houser RN) 0810 (Given - Provider: Roge Tolbert, BRIA) 0824 (Given - Provider: Dc Edwards, BRIA) methocarbamoL (ROBAXIN) tablet 1,000 mg 1,000 mg, oral, Every 8 hours, First dose (after last modification) on Tue06/21/23 at 1615 0025 (Given - Provider: Colt Rene RN)0812 (Given - Provider: Cayla Houser RN)1605 [...] COVID: Suspected 06/13/2023 06/13/2023 06/13/2023 3:42 PM GLASS BULB SILVERER documented as of this encounter Care Teams Dish Stacker Relationship Specialty Start Date End Date Carl Strickland MD [address] [facility] [address] [place] [address] PCP - General Internal Medicine 06/06/23 Faustino Herrera MD [address] [facility] [id number] [place] [address] Surgeon Vascular Surgery 05/16/23 documented as of this encounter
--- OUTSIDE RECORDS SUMMARY | 2024-05-30 06:29 | XMS_ITS | Encounter Summary ---
Author Organization [facility] Address [address] [place] [address] Phone Care Team Providers Care Seam Rubber Name Role Phone Leo Manzano MD Unavailable [phone] Carl Strickland MD Primary Care Provider Reason for Visit * Reason Onset Date Comments Genetic testing/F/U appt 06/14/2023 Encounter Details Date Type Department Care Team (Late st Contact Info) Description 06/14/2023 Telephone [facility] Cardiology [address] [facility] 8[address] [place] [address] [place] [address] Joaquín Abarca MD [address] [facility] [facility] [address] [place] [address] Genetic testing/F/U appt Social History Tobacco Use Types Packs/Day Years Used Date Smoking Tobacco: Never Smokeless Tobacco: Never Alcohol Use Standard Drinks/Week Comments Not Currently 0 (1 standard drink = 0.6 oz pur e alcohol) [facility] Utilities Answer Date Recorded In the [...] slept in a residential (including now)? No 06/15/2023 Personal Safety Answer Date Recorded Getting School Help Needed Denies 05/09 Sex and Gender Information Value Date Recorded Sex Assigned at Not on file Legal Sex Male 3:42 AM HOUSE REGISTRY RN Gender Identity Not on file Sexual Orientation Straight 06/12/2023 11 :43 PM HOUSE REGISTRY RN documented as of this encounter Miscellaneous Notes [...] Pt states he uses My [employer], and [employer] send portal outlining genetic testing and contact numbers. Pt in agreement. Pt was enroute somewhere and did not have ability to write info. Orders sent. E REGISTRY RN E REGISTRY RN * Telephone Encounter - Idalia Macario RN - 06/20/2023 8:14 AM HOUSE REGISTRY RN Still in house will check next week E REGISTRY RN * Telephone Encounter - Mariah Case RN - 06/16/2023 10:11 AM CST Pt still inpt. E REGISTRY RN * Telephone Encounter - Mariah Case RN - 06/14/2023 4:59 PM CST Orders pending. Pt still inpt. Will need 4 week f/u appt. E REGISTRY RN * Telephone Encounter - Mariah Case RN - 06/14/2023 4:52 PM CST ----- Message from Joaquín Abarca MD sent at 06/11/2023 7:51 AM HOUSE REGISTRY RN ----- The patient will need follow-up in about 4 weeks. Patient will need genetic testing as an outpatient evaluate thoracic aortic aneurysms genes. E REGISTRY RN documented in this encounter Plan of Treatment Not on file documented as of this encounter Visit Diagnoses Not on filedocumented in this encounter Care Teams Seam Rubber Relationship Specialty Start Date End Date Carl Strickland MD [address] [facility] [address] [place] [address] PCP - General Internal Medicine 06/06/23 Leo Manzano MD [id number] [place] [address] Surgeon Vascular Surgery 05/16/23 documented as of this encounter
--- OUTSIDE RECORDS SUMMARY | 2024-05-30 06:29 | XMS_ITS | Encounter Summary ---
Author Organization [facility] Address [address] [place] [address] Care Team Providers Care Behavioral Psychologist Name Role Phone Leo Manzano MD Unavailable [phone] Carl Strickland MD Primary Care Provider Reason for Visit * Auth/Cert (Routine) Specialty Diagnoses / Procedures Referred By Contac t Referred To Contact Diagnoses Ureteral stone Left flank pain Procedures N/A Referral ID Status Reason Start Date Expiration Date Visits Re quested Visits Authorized [id number] 1 1 Encounter Details Date Type Department Care Team (Late st Contact Info) Description 07/04/2023 7:08 PM EXCHANGE FLOOR MANAGER Anesthesia Event [facility] Operating Room [address] [place] [address] Artem Zepeda MD [address] [facility] [id number] [place] [address] Anesthesia Record Procedure Summary Procedure Name Responsible [...] = 0.6 oz pur e alcohol) [facility] Utilities Answer Date Recorded In the past 12 months has [employer], gas, oil, or water [employer] threatened to shut off services in your [...] often do you attend chur ch or uatsdin services? More than 4 times per year [...] on file Legal Sex Male 3:42 AM EXCHANGE FLOOR MANAGER Gender Identity Not on file Sexual Orientation Straight 06/12/2023 11 :43 PM EXCHANGE FLOOR MANAGER documented as of this encounter OR Notes * Anesthesia Postprocedure Evaluation - Artem Zepeda MD - 07/04/2023 8:31 PM CST Patient: Eriberto Chau Procedure Summary Date: 07/04/23 Room / Location: [facility] OR POD 1 ROOM 325 / [facility] OR POD 1 Anesthesia Start: 1905 [...] Level of consciousness: fully awake and arouses telecommunications technician Pain score: 2 Pain management: adequate Airway patency: adequate Evidence of recall: no Cardiovascular status: acceptable and hemodynamically stable Respiratory status: acceptable and nasal cannula Hydration status: acceptable Pt is: normothermic Nausea/Vomiting status: none No notable events documented. ANGE FLOOR MANAGER * Anesthesia Preprocedure Evaluation - Artem Zepeda [...] Chronic back pain 06/24/2023 Pseudoaneurysm following procedure ([facility] ([facility] 06/24/2023 Infrarenal abdominal aortic aneurysm, without rupture ([facility]) 06/13/2023 Polysubstance abuse ([facility] ([facility]) 06/10/2023 Moderate malnutrition ([facility] ([facility]) 06/09/2023 Dissection of abdominal aorta ([facility] ([facility]) 06/03/2023 Urinary retention 05/16/2023 Epistaxis 05/13/2023 Pneumonia 05/13/2023 HTN (hypertension) 05/13/2023 Dissection of thoracoabdominal aorta ([facility] ([facility]) 05/02/2023 Dissection of aorta, unspecified portion of aorta ([facility]) 05/01/2023 Past Medical History: Diagnosis Date Hypertension [...] Medication protocol when under care of a [employer]SEM[employer] Planned anesthesia: General Team communication plan: oral ET tube Induction: Induction: intravenous. Postoperative Plan: Postoperative administration opioids intended. Postoperative mechanical ventilation intended. Patient's planned disposition post procedure is Floor. Informed Consent: Discussed plan with [employer]. Anesthesia plan and risks discussed with patient. Consent and Attending signature: I and/or my designee have discussed the anesthesia plan, benefits, possible alternatives, parental presence at time of induction (if indicated), and clinically relevant risks that may include dental injury, unintentional awareness, and/or other complications. The patient and/or parent/legal guardian understand, and agree to proceed. All questions answered. ANGE FLOOR MANAGER * Anesthesia Procedure Notes - Christoph Singh CRNA - 07/04/2023 7:25 PM CSTAssociated Order(s): Airway Airway Patient location: OR Urgency: elective Indications for airway management: anesthesia Difficult airway: no Staff: Placed by: [employer]: Christoph Singh CRNA Emergent airway documentation: Risks [...] with: silk tape Number of attempts: 1no ANGE FLOOR MANAGER documented in this encounter Plan of Treatment Not on file documented as of this encounter Procedures Procedure Name Priority Date/Time Associated Diagnosis Comments PA AN PROCEDURE PLACEHOLDER Routine 07/04/2023 7:25 PM EXCHANGE FLOOR MANAGER PA AN ELECTIVE ENDOTRACHEAL AIRWAY Routine 07/04/2023 7:25 PM EXCHANGE FLOOR MANAGER documented in this encounter Results * PA AN ELECTIVE ENDOTRACHEAL AIRWAY, PA AN PROCEDURE PLACEHOLDER (07/04/2023 7:25 PM EXCHANGE FLOOR MANAGER) Narrative Christoph Singh CRNA - 07/04/2023 7:25 PM EXCHANGE FLOOR MANAGER Christoph Singh CRNA ? 07/04/2023 ??7:26 PM Airway Patient location: OR Urgency: elective Indications for airway management: anesthesia Difficult airway: no Staff: Placed by: [employer]: Christoph Singh CRNA Emergent airway documentation: Risks [...] 1920, Anesthesia Intra-op Given 07/04/2023 7:20 PM EXCHANGE FLOOR MANAGER 2,000 mg fentaNYL (SUBLIMAZE) preservative free injection intravenous, As needed, Starting on Tue07/04/23 at 1910, Anesthesia Intra-op Given 07/04/2023 7:34 PM EXCHANGE FLOOR MANAGER 50 mcg Given 07/04/2023 7:10 PM EXCHANGE FLOOR MANAGER 50 mcg ketorolac (TORADOL) 30 mg/mL (1 mL) injection intravenous, As needed, Starting on Tue07/04/23 at 1953, Anesthesia Intra-op Given 07/04/2023 7:53 PM EXCHANGE FLOOR MANAGER 15 mg lidocaine (cardiac) (XYLOCAINE) preservative free injection intravenous, As needed, Starting on Tue07/04/23 at 1915, Anesthesia Intra-op, Indications: Ventricular ArrhythmiasIndications:Ventricular Arrhythmias Given 07/04/2023 7:15 PM EXCHANGE FLOOR MANAGER 100 mg midazolam (VERSED) 2 mg/2 mL preservative free injection intravenous, Administer over 2 Minutes, As needed, Starting on Tue07/04/23 at 1908, Anesthesia Intra-op Given 07/04/2023 7:08 PM EXCHANGE FLOOR MANAGER 2 mg ondansetron (ZOFRAN) injection intravenous, Administer over 2 Minutes, As needed, Starting on Tue07/04/23 at 1934, Anesthesia Intra-op Given 07/04/2023 7:34 PM EXCHANGE FLOOR MANAGER 4 mg phenylephrine (KARLI-SYNEPHRINE) 1 mg/10 mL (100 mcg/mL) in sodium chloride 0.9% (premix) intravenous, As needed, Starting on Tue07/04/23 at 1928, Anesthesia Intra-op Given 07/04/2023 7:53 PM EXCHANGE FLOOR MANAGER 100 mcg Given 07/04/2023 7:47 PM EXCHANGE FLOOR MANAGER 100 mcg Given 07/04/2023 7:44 PM EXCHANGE FLOOR MANAGER 100 mcg propofoL (DIPRIVAN) 10 mg/mL IV intravenous, As needed, Starting on Tue07/04/23 at 1916, Anesthesia Intra-op New Bag 07/04/2023 7:16 PM EXCHANGE FLOOR MANAGER 200 mg rocuronium (ZEMURON) injection intravenous, As needed, Starting on Tue07/04/23 at 1916, Anesthesia Intra-op Given 07/04/2023 7:16 PM EXCHANGE FLOOR MANAGER 10 mg sodium chloride 0.9% infusion 30 mL/hr, intravenous, Continuous, Starting on Tue07/04/23 at 1915, Pre-Op Restarted 07/04/2023 8:01 PM EXCHANGE FLOOR MANAGER Rate/Dose Verify 07/04/2023 7:08 PM EXCHANGE FLOOR MANAGER 30 mL/h r New Bag 07/04/2023 6:54 PM EXCHANGE FLOOR MANAGER 30 mL/hr 30 mL/hr succinylcholine syringe intravenous, As needed, Starting on Tue07/04/23 at 1916, Anesthesia Intra-op Given 07/04/2023 7:16 PM EXCHANGE FLOOR MANAGER 100 mg documented in this encounter Care Teams Behavioral Psychologist Relationship Specialty Start Date End Date Carl Strickland MD [address] [facility] [address] [place] [address] PCP - General Internal Medicine 06/06/23 Leo Manzano MD [address] [facility] [id number] [place] [address] Surgeon Vascular Surgery 05/16/23 documented as of this encounter
--- OUTSIDE RECORDS SUMMARY | 2024-05-30 06:29 | XMS_ITS | Encounter Summary ---
Author Organization [facility] Healthcare Address [address] [place] [address] Care Team Providers Care Client Server Programmer Name Role Phone Leo Manzano MD Unavailable [phone] Carl Strickland MD Primary Care Provider Reason for Referral * Consultation (Routine) - Pending Review Specialty Diagnoses / Procedures Referred By Contact Referred To Contact Pain Management / Psychology Diagnoses Chronic bilateral low back pain without sciatica Meron Monterroso MD [address] [place] [address] Phone: tel: fax: [facility] [address] [facility] [address] [place] [address] Phone: tel: Referral ID Status Reason Start Date Expiration Date Visits Requested Visits Authorized [id number] Pending Review Specialty Services Required 07/02/2023 07/31/2024 1 1 Question Answer Please select the performing region: [facility] [[id number]] # of visits: 1 Comments Please contact the clinic to schedule your appointment if you do not receive a call by the end of the next business day. [facility] Reason for Visit * Reason Comments Back Pain Encounter Details Date Type Department Care Team (Late st Contact Info) Description 07/02/2023 9:45 AM DIRECT OF [facility] E[facility] - 07/02/2023 11:05 AM DIRECT OF [facility] Emergency [facility] Emergency Department [address] [facility] [place] [address] Cristobal Waldrop MD [address] [place] [address] Chronic bilateral low back pain without sciatica [...] drink = 0.6 oz pur e alcohol) [facility] Utilities Answer Date Recorded In the past 12 months has [employer], gas, oil, or water [employer] threatened to shut off services in your [...] often do you attend chur ch or protestant services? More than 4 times per year 06/15/2023 Do you belong to any clubs o r organizations such as samaritan groups, unions, fraternal or athletic groups, or [...] slept in a long term (including now)? No 06/15/2023 Personal Safety Answer Date Recorded Getting School Help Needed Denies 05/09 Sex and Gender Information Value Date Recorded Sex Assigned at Not on file Legal Sex Male 3:42 AM DIRECT OF [facility] E[facility] Gender Identity Not on file Sexual Orientation Straight 06/12/2023 11 :43 PM DIRECT [facility] documented as of this encounter Last Filed Vital Signs Vital Sign Reading Time Taken Comments Blood Pressure 112/80 07/02/2023 10:30 AM DIRECT OF [facility] Pulse 69 07/02/2023 10:30 AM DIRECT OF [facility] Temperature 36.9 ??C (98.5 ??F) 07/02/2023 7:23 AM CS T Respiratory Rate 15 07/02/2023 10:30 AM DIRECT [facility] Oxygen Saturation 98% 07/02/2023 10:30 AM DIRECT OF [facility] Inhaled Oxygen Concentration - - Weight - - Height - - Body Mass Index - - documented in this encounter Discharge Instructions * Discharge Instructions* Meron Monterroso MD - 07/02/2023 10:01 AM DIRECT OF [facility] You have been evaluated in the Emergency [...] tarry stools, or any other concerning symptoms. [facility] documented in this encounter Medications at Time [...] back pain 06/24/2023 ??? 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 Infrarenal abdominal aortic aneurysm, without rupture ([facility]) 06/13/2023 ??? Polysubstance abuse (CMS/[facility]) ([facility]) 06/10/2023 ??? Moderate malnutrition (CMS/HCC) ([facility]) 06/09/2023 ??? Dissection of abdominal aorta (CMS/HCC) ([facility]) 06/03/2023 ??? Urinary retention 05/16/2023 ??? Epistaxis 05/13/2023 ??? Pneumonia 05/13/2023 ??? HTN (hypertension) 05/13/2023 ??? Dissection of thoracoabdominal aorta (CMS/HCC) ([facility]) 05/02/2023 ??? Dissection of aorta, unspecified portion of aorta ([facility]) 05/01/2023 Past Medical History: Diagnosis Date [...] Psychiatric: Mood and Affect: Mood normal. [facility] Medical Decision Making Patient is a [...] Reviewed communication notes with Dr. Abarca in [facility]; recently developed cough and lip swelling and was instructed to stop lisinopril. By: Cristobal Waldrop MD Time: 07/02 0978 Comment: ED attending note: 33 year old [...] Cristobal Waldrop MD at 07/02/2023 11:14 AM DIRECT OF [facility] Associated attestation - Cristobal Waldrop MD - 07/02/2023 11:14 AM DIRECT OF [facility] E[facility] I have seen and examined the patient on 07/02/2023. I agree with the findings and plan of care as documented in the resident's note. * Franci Howard RN - 07/02/2023 9:45 AM CST Bed: [facility] Expected date: Expected time: Means of arrival: Car Comments: triage Franci Howard RN 07/02/[address] [facility] * Tana Byrd RN - 07/02/2023 7:21 AM CST Pt to ED with chronic LBP and hypertension, ,hx of ruptured AAA. Pt is A/O x4. [facility] documented in this encounter Miscellaneous Notes * ED Procedure Note - Deniz Huitron MD - 07/02/2023 11:05 AM DIRECT OF [facility] Associated Order(s): ECG 12 lead Procedure ECG [...] the ED Deniz Huitron MD 07/02/[address] [facility] * Plan of Care - Sheila Mixon [...] alert on patient who was discharged from [facility] inpatient admission </=7 days (DC 06/25/2023; ED treatment team aware). ED workup/orders/tx plan pending. Chart review performed. SDOH identified and not a High Utilizer (=>4 admits past 12 mos). Upcoming scheduled appts per [facility] EMR: 07/20/2023 3:15 PM Joaquín Abarca MD [facility] 8B Cardiology 08/03/2023 2:00 PM [id number] 08/03/2023 2:45 PM Leo Manzano MD [facility] [id number] No ED CM/SW needs identified at this time, but please contact ED CM or ED SW for questions and/or assistance or for decision to admit so that any appropriate admission alternative can be discussed. [facility] documented in this encounter Plan of Treatment Scheduled Referrals Name Type Priority Associated Diagnoses Order Schedule Ambulatory referral to Pain Management Outpatient Referral Routine Chronic bilateral low back pain without sciatica Expected: 07/16/2023 (Approximate), Expires: 07/02/2024 documented as of this encounter Procedures Procedure Name Priority Date/Time Associated Diagnosis Comments ECG 12-LEAD STAT 07/02/2023 1:06 PM [facility] documented in this encounter Results * ECG 12-LEAD (07/02/2023 1:06 PM DIRECT OF [facility]) Narrative [facility] - 07/02/2023 1:06 PM DIRECT OF [facility] Deniz Huitron MD ? 07/02/2023 ??1:08 PM [...] workup in the ED ?? us Cristobal Waldrop MD ECG ORDERABLES Fin al Result [facility] documented in this encounter Visit Diagnoses [...] For 3 doses Given 07/02/2023 10:03 AM DIRECT OF [facility] 1,000 mg gabapentin (NEURONTIN) capsule 300 mg 300 mg, oral, Once, On 07/02/23 at 0958, For 1 dose Given 07/02/2023 10:03 AM DIRECT OF [facility] 300 mg lidocaine (ASPERCREME) 4 % patch 2 patch 2 patch, transdermal, Administer over 12 Hours, Every 24 hours, First dose on 07/02/23 at 0958, For 1 dose, Apply to affected area: back Medication Applied 07/02/2023 10:04 AM DIRECT OF [facility] 2 patches Other (Comment) methocarbamoL (ROBAXIN) tablet 750 mg 750 mg, oral, Once, On 07/02/23 at 0958, For 1 dose Given 07/02/2023 10:05 AM DIRECT OF [facility] 750 mg documented in this encounter Active and Recently Administered Medications Times are shown in [facility]. Scheduled Medication Order 06/30/2023 07/01/2023 07/02/2023 gabapentin [...] 07/02/2023 documented in this encounter Care Teams Client Server Programmer Relationship Specialty Start Date End Date Carl Strickland MD [address] [facility] [address] [place] [address] PCP - General Internal Medicine 06/06/23 Leo Manzano MD [address] [facility] [id number] [place] [address] Surgeon Vascular Surgery 05/16/23 documented as of this encounter
--- OUTSIDE RECORDS SUMMARY | 2024-05-30 06:29 | XMS_ITS | Encounter Summary ---
Author Organization [facility] Address [address] [place] [address] Phone Care Team Providers Care Pack Press Operator Name Role Phone Leo Manzano MD Unavailable [phone] Carl Strickland MD Primary Care Provider Encounter Details Date Type Department Care Team (Late st Contact Info) Description 07/01/[address] [facility] Cardiology [address] [facility] [address] [place] [address] [place] [address] Joaquín Abarca MD [address] [place] [address] Social History Tobacco Use Types Packs/Day Years Used Date Smoking Tobacco: Never Smokeless Tobacco: Never Alcohol Use Standard Drinks/Week Comments Not Currently 0 (1 standard drink = 0.6 oz pur e alcohol) [facility] Utilities Answer Date Recorded In the past 12 months has [employer] electric, gas, oil, or water company threatened [...] often do you attend chur ch or amish services? More than 4 times per year [...] slept in a snf (including now)? No 06/15/2023 Personal Safety Answer Date Recorded Getting School Help Needed Denies 05/09 Sex and Gender Information Value Date Recorded Sex Assigned at Not on file Legal Sex Male 3:42 AM ACUTE DIALYSIS NURSE Gender Identity Not on file Sexual Orientation Straight 06/12/2023 11 :43 PM ACUTE DIALYSIS NURSE documented as of this encounter Miscellaneous Notes * Addendum Note - Idalia Dodson RN - 07/01/2023 12:16 PM CSTAddended by: IDALIA DODSON on: 07/01/2023 12:16 PM Modules accepted: Orders E DIALYSIS NURSE * Telephone Encounter - Idalia Dodson RN - 07/01/2023 12:15 PM ACUTE DIALYSIS NURSE Patient and girlfriend aware of reccs- advised to monitor BP and roseann with update next week-understanding verbalized of all E DIALYSIS NURSE * Telephone Encounter - Joaquín Abarca MD - 07/01/2023 10:31 AM ACUTE DIALYSIS NURSE Discontinue the lisinopril. Give us an update in his symptoms in the next week. Follow the blood pressure and give us an update E DIALYSIS NURSE * Telephone Encounter - Idalia Dodson RN - 07/01/2023 10:18 AM ACUTE DIALYSIS NURSE Girlfriend called reports woke up yesterday with [...] rash- reports has continued on the lisinopril E DIALYSIS NURSE * Telephone Encounter - Elisabeth Eid - 07/01/2023 9:49 AM CST Rima Pt girlfriend would like to speak to nurse about the lisinopril pt is taking. E DIALYSIS NURSE documented in this encounter Plan of Treatment Not on file documented as of this encounter Visit Diagnoses Not on filedocumented in this encounter Discontinued Medications Medication Sig Discontinue Reason Start Date End Da te lisinopriL (PRINIVIL,ZESTRIL) 20 mg tablet Take 1 tablet (20 mg total) by mouth daily 06/26/2023 07/01/2023 documented as of this encounter Care Teams Pack Press Operator Relationship Specialty Start Date End Date Carl Strickland MD [address] [facility] [address] [place] [address] PCP - General Internal Medicine 06/06/23 Leo Manzano MD [address] [place] [address] Surgeon Vascular Surgery 05/16/23 documented as of this encounter
--- OUTSIDE RECORDS SUMMARY | 2024-05-30 06:29 | XMS_ITS | Encounter Summary ---
Author Organization [facility] Healthcare Address [address] [place] [address] Care Team Providers Care Change Number Operator Name Role Phone Leo Manzano MD Unavailable [phone] Carl Strickland MD Primary Care Provider Reason for Visit * Reason Comments Abdominal Pain * Auth/Cert (Routine) Specialty Diagnoses / Procedures Referred By Contac t Referred To Contact Diagnoses Ureteral stone Left flank pain Procedures N/A Referral ID Status Reason Start Date Expiration Date Visits Re quested Visits Authorized [id number] 1 1 Encounter Details Date Type Department Care Team (Late st Contact Info) Description 07/04/2023 7:30 PM LEASE ATTENDANT - 07/04/2023 9:10 PM LEASE ATTENDANT Surgery [facility] Operating Room [address] [place] [address] Marcus Gamboa MD [address] [place], [place] [id number] CYSTOSCOPY Surgery Details Date/Time Status Location OR [...] - Assisting Ur ology 1 Case Notes [phone] documented in this encounter Social History Tobacco Use Types Packs/Day Years Used Date Smoking Tobacco: Never Smokeless Tobacco: Never Alcohol Use Standard Drinks/Week Comments Not Currently 0 (1 standard drink = 0.6 oz pur e alcohol) [facility] Utilities Answer Date Recorded In the [...] 06/15/2023 How often do you attend [facility] or nondenominational services? More than 4 times [...] on file Legal Sex Male 3:42 AM LEASE ATTENDANT Gender Identity Not on file Sexual Orientation Straight 06/12/2023 11 :43 PM LEASE ATTENDANT documented as of this encounter Last Filed Vital Signs Vital Sign Reading Time Taken Comments Blood Pressure 99/70 07/04/2023 9:10 PM LEASE ATTENDANT Pulse 78 07/04/2023 9:10 PM LEASE ATTENDANT Temperature 37 ??C (98.6 ??F) 07/04/2023 9:10 PM LEASE ATTENDANT Respiratory Rate 12 07/04/2023 9:10 PM LEASE ATTENDANT Oxygen Saturation 94% 07/04/2023 9:10 PM LEASE ATTENDANT Inhaled Oxygen Concentration - - Weight 97.5 kg (215 lb) 07/04/2023 11:41 AM LEASE ATTENDANT Height 175.3 cm (5' 9 ) 07/04/2023 11:41 AM LEASE ATTENDANT Body Mass Index 31.75 07/04/2023 11:41 AM LEASE ATTENDANT documented in this encounter Discharge Summaries * Gisele Courtney, CONTOUR PATH TAPE MILL OPERATOR - 07/08/2023 1:02 PM CST Inpatient Discharge Summary BRIEF OVERVIEW Admitting Provider: Marcus Gamboa MD Discharge Provider: Marcus Gamboa MD Primary Care Physician at Discharge: Carl Strickland MD [phone] Admission Date: 07/04/2023 Discharge Date: 07/08/2023 Admission Location: [facility] Problems/Diagnoses: Principal Problem: Ureteral stone Active Problems: Left flank pain Resolved Problems: No resolved hospital problems. DETAILS OF HOSPITAL STAY Presenting Problem/History of Present Illness: Eriberto Chau is a 33 y.o. 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 (Lizzie), hypertension who presented to [facility] ED on 07/04/2023 with a chief complaint [...] CAR CAM 8B Cardiology 08/03/2023 2:00 PM [facility] WCHCT2 [facility] CT [id number] 08/03/2023 2:45 PM Leo Manzano MD [facility] BW3 225 [address] 10/07/2023 9:00 AM [facility] BJUS3 BJN US BJ Main IMG 10/07/2023 10:00 AM Marcus Gamboa MD URO CAM 11C LOZA Contact Information for Follow-ups [facility] Surgery Specialty: Vascular Surgery [address] [place] [address] 8th [address] [facility] [address] Next Steps: Follow up Instructions: Surveillance after [...] Marcus Gamboa MD at 07/14/2023 5:32 PM LEASE ATTENDANT E ATTENDANT E ATTENDANT documented in this encounter Discharge Instructions * Discharge Instructions* Gisele Courtney NP - 07/08/2023 11:14 AM LEASE ATTENDANT Images from the original note were not [...] within 3 months. Medications: You may take [id number] stool softener to prevent constipation. Take all [...] removal on 07/14/2023 as scheduled. Please call [phone] with any questions or concerns. E ATTENDANT E ATTENDANT E ATTENDANT documented in this encounter Medications at Time [...] Surgery Daily Progress Patient Name/MRN: Eriberto Chau [id number] Treatment Team: Vascular Surgery- Attending: Marcus Gamboa* Today's Date: 07/08/2023 Room/Bed: [id number] Admit Date: 07/04/2023 Code Status: Full Code [...] intravenous Q6H [facility] Gisele Courtney, CONTOUR PATH TAPE MILL OPERATOR 15 mg at07/08/23 0539 methocarbamoL (ROBAXIN) tablet 750 mg 750 mg oral TID Gisele Courtney, CONTOUR PATH TAPE MILL OPERATOR 750 mg at 07/08/23 0820 ondansetron (ZOFRAN) injection 4 mg 4 mg intravenous Q6H PRN Gisele Courtney, CONTOUR PATH TAPE MILL OPERATOR 4 mg at 07/07/23 1018 oxyBUTYnin XL (DITROPAN-XL) extended release tablet 10 mg 10 mg oral Daily Gisele Courtney, CONTOUR PATH TAPE MILL OPERATOR 10 mg at 07/08/23 0820 oxyCODONE (ROXICODONE) tablet 5 mg 5 mg oral Q4H PRN America Rowe MD 5 mg at 07/08/23 0959 phenazopyridine (PYRIDIUM) tablet 200 mg 200 mg oral TID with meals Gisele Courtney, CONTOUR PATH TAPE MILL OPERATOR 200 mg at 07/08/23 0820 prochlorperazine (COMPAZINE) injection 5 mg 5 mg intravenous Q6H PRN Gisele Courtney, CONTOUR PATH TAPE MILL OPERATOR 5 mg at 07/07/23 0634 ramelteon (ROZEREM) [...] Adult Diet Regular Diet effective now Question: ([facility]) Diet type Answer: Regular 07/06/23 1125 07/05/23 1453 Oral Nutrition Supplements ([facility]) Select Supplement: Thrive - Any Flavor; Quantity (# of cans): 1 can All Meals Question Answer Comment ([facility]) Select Supplement: Thrive - Any Flavor Quantity [...] Alonzo Duncan MD at 07/08/2023 1:46 PM LEASE ATTENDANT E ATTENDANT E ATTENDANT * Chung Burleson MD - 07/08/2023 11:00 [...] mg 1,000 mg intravenous Q12H Gisele Mckeon CONTOUR PATH TAPE MILL OPERATOR 120 mL/hr at 07/08/23 1211 1,000 mg at 07/08/23 1211 enoxaparin (LOVENOX) syringe 40 mg 40 mg subcutaneous Daily-2100 Gisele Courtney, CONTOUR PATH TAPE MILL OPERATOR 40 mg at 07/07/23 2120 gabapentin (NEURONTIN) capsule 300 mg 300 mg oral TID Terrell Luna MD 300 mg at 07/08/23 0819 hydrALAZINE (APRESOLINE) tablet 50 mg 50 mg oral TID Terrell Luna MD 50 mg at 07/08/23 0837 hyoscyamine (LEVSIN) sublingual tablet 125 mcg 125 mcg sublingual Q6H Gisele Courtney CONTOUR PATH TAPE MILL OPERATOR 125 mcg at 07/08/23 1234 ketorolac (TORADOL) 15 mg/mL injection 15 mg 15 mg intravenous Q6H SUSAN Gisele Courtney, CONTOUR PATH TAPE MILL OPERATOR 15 mg at07/08/23 1211 methocarbamoL (ROBAXIN) tablet 750 mg 750 mg oral TID Gisele Courtney, CONTOUR PATH TAPE MILL OPERATOR 750 mg at 07/08/23 0820 ondansetron (ZOFRAN) injection 4 mg 4 mg intravenous Q6H PRN Gisele Courtney, CONTOUR PATH TAPE MILL OPERATOR 4 mg at 07/07/23 1018 oxyBUTYnin XL (DITROPAN-XL) extended release tablet 10 mg 10 mg oral Daily Gisele Courtney CONTOUR PATH TAPE MILL OPERATOR 10 mg at 07/08/23 0820 oxyCODONE (ROXICODONE) tablet 5 mg 5 mg oral Q4H PRN America Rowe MD 5 mg at 07/08/23 1436 phenazopyridine (PYRIDIUM) tablet 200 mg 200 mg oral TID with meals Gisele Courtney CONTOUR PATH TAPE MILL OPERATOR 200 mg at 07/08/23 1212 prochlorperazine (COMPAZINE) injection 5 mg 5 mg intravenous Q6H PRN Gisele Courtney, CONTOUR PATH TAPE MILL OPERATOR 5 mg at 07/07/23 0634 ramelteon (ROZEREM) [...] mg 15 mg/kg intravenous Q12H Gisele Courtney CONTOUR PATH TAPE MILL OPERATOR Stopped at 07/08/23 0341 Current Outpatient Medications [...] Adult Diet Regular Diet effective now Question: ([facility]) Diet type Answer: Regular 07/06/23 1125 07/05/23 1453 Oral Nutrition Supplements ([facility]) Select Supplement: Thrive - Any Flavor; Quantity (# of cans): 1 can All Meals Question Answer Comment ([facility]) Select Supplement: Thrive - Any Flavor Quantity [...] IV: Discontinue Hydromorphone 0.5mg q 4hr PRN IV/CHALK CUTTER: none SubQ: none b. Adjuvants: Continue APAP [...] in the care of this patient. Aman Linod MD Acute Pain Service Department of Anesthesiology [facility] [phone] This pager does not accept voice messages. Please enter your callback number and press #. 07/08/2023 6:32 PM I have seen and evaluated the patient and agree with the above Chung Burleson MD E ATTENDANT E ATTENDANT E ATTENDANT * Dalton Vizcaino MD - 07/07/2023 9:00 PM CST Vascular Surgery Daily Progress Patient Name/MRN: Eriberto Chau [id number] Treatment Team: Vascular Surgery- Attending: Marcus Gamboa* Today's Date: 07/08/2023 Room/Bed: [id number] Admit Date: 07/04/2023 Code Status: Full Code [...] tablet 1,000 mg 1,000 mg oral Q6H SSUAN Kristine Viera MD 1,000 mg at 07/08/23 [...] mg 1,000 mg intravenous Q12H Gisele Mckeon CONTOUR PATH TAPE MILL OPERATOR 120 mL/hr at 07/08/23 0010 1,000 mg at 07/08/23 0010 enoxaparin (LOVENOX) syringe 40 mg 40 mg subcutaneous Daily-2100 Gisele Courtney CONTOUR PATH TAPE MILL OPERATOR 40 mg at 07/07/232119 gabapentin (NEURONTIN) capsule [...] mg 0.25 mg intravenous Q6H Gisele Perez, CONTOUR PATH TAPE MILL OPERATOR 0.25 mg at 07/08/239 ketorolac (TORADOL) 15 mg/mL injection 15 mg 15 mg intravenous Q6H Gisele Perez, CONTOUR PATH TAPE MILL OPERATOR 15 mg at07/08/239 Lactated Ringer's (LR) infusion 125 mL/hr intravenous Continuous America Rowe MD 125 mL/hr at 07/07/232117 125 mL/hr at 07/07/232117 methocarbamoL (ROBAXIN) tablet 750 mg 750 mg oral TID Gisele Courtney CONTOUR PATH TAPE MILL OPERATOR 750 mg at 07/07/232119 ondansetron (ZOFRAN) injection 4 mg 4 mg intravenous Q6H PRN Gisele Courtney, CONTOUR PATH TAPE MILL OPERATOR 4 mg at 07/07/23 1018 oxyBUTYnin XL (DITROPAN-XL) extended release tablet 10 mg 10 mg oral Daily Gisele Courtney, CONTOUR PATH TAPE MILL OPERATOR 10 mg at 07/07/23 0847 oxyCODONE (ROXICODONE) [...] Adult Diet Regular Diet effective now Question: ([facility]) Diet type Answer: Regular 07/06/23 1125 07/05/23 1453 Oral Nutrition Supplements ([facility]) Select Supplement: Thrive - Any Flavor; Quantity (# of cans): 1 can All Meals Question Answer Comment ([facility]) Select Supplement: Thrive - Any Flavor Quantity [...] and agrees withit. Electronically signed by: Katy Llmaas M.D. Result Date: 07/05/2023 1. Redemonstrated thoracoabdominal [...] Nikhil Samuel MD at 07/18/2023 11:03 AM LEASE ATTENDANT E ATTENDANT E ATTENDANT E ATTENDANT * Timmy Rosales - 07/07/2023 3:53 PM CST Fr Timmy Rosales [phone] 07/07/23 1500 Time Spent Start Time 1510 Stop Time 1530 Time Calculation (min) 20 min Patient Spiritual Assessment Spirituality Assessed Yes Protestant Affiliation Rastafarian Active in Tenriism Yes Spiritual Needs Communion;Prayer Clinical Encounter Type Visited With Patient and family together Response Type Continuing visit Routine Visit Follow-up Continue Visiting Yes Reason for visit Sacramental;Support Sacramental Encounters Communion Patient wants communion Communion Given Indicator Yes Outcomes and Progress Aligning care with patient's values Achieved Preserve dignity and respect Achieved Demonstrating care and respect Achieved Interventions Interventions Active listening;Offer emotional support;Offer spiritual/nondenominational support;Prayer (Benediction) E ATTENDANT * Gisele Courtney, CONTOUR PATH TAPE MILL OPERATOR - 07/07/2023 11:04 AM CST Images from [...] follow, appreciate recommendations Gisele Courtney NP 07/07/2023 [facility] Urology Service E ATTENDANT * Timmy Rosales - 07/06/2023 3:55 PM CST Fr Timmy Rosales [phone] 07/06/23 1500 Time Spent Start Time 1310 Stop Time 1320 Time Calculation (min) 10 min Patient Spiritual Assessment Spirituality Assessed Yes Protestant Affiliation Rastafarian Active in Tenriism Yes Spiritual Needs Anointing;Communion;Prayer Clinical Encounter Type [...] Achieved Interventions Interventions Active listening;Offer emotional support;Offer spiritual/nondenominational support;Prayer (Benediction) E ATTENDANT * Gisele Courtney NP - 07/06/2023 11:23 [...] follow, appreciate recommendations Gisele Courtney NP 07/06/2023 [facility] Urology Service Cosigned by Marcus Gamboa MD at 07/07/2023 6:23 AM LEASE ATTENDANT E ATTENDANT E ATTENDANT * Georgia Novoa MD - 07/06/2023 6:00 AM CST Vascular Surgery Daily Progress Patient Name/MRN: Eriberto Chau [id number] Treatment Team: Vascular Surgery- Attending: Marcus Gamboa* Today's Date: 07/06/2023 Room/Bed: [id number] Admit Date: 07/04/2023 Code Status: Full Code [...] mg 40 mg subcutaneous Daily-2100 Gisele Courtney CONTOUR PATH TAPE MILL OPERATOR 40 mg at 07/05/23 2126 gabapentin (NEURONTIN) [...] 4 mg intravenous Q6H PRN Gisele Courtney, CONTOUR PATH TAPE MILL OPERATOR 4 mg at 07/05/23 2247 oxyBUTYnin XL (DITROPAN-XL) extended release tablet 10 mg 10 mg oral Daily Gisele Courtney CONTOUR PATH TAPE MILL OPERATOR 10 mg at 07/06/23 1206 oxyCODONE (ROXICODONE) tablet 5 mg 5 mg oral Q4H PRN America Rowe MD 5 mg at 07/06/23 0837 phenazopyridine (PYRIDIUM) tablet 200 mg 200 mg oral TID with meals Gisele Courtney CONTOUR PATH TAPE MILL OPERATOR 200 mg at 07/06/23 1206 prochlorperazine (COMPAZINE) injection 5 mg 5 mg intravenous Q6H PRN Gisele Courtney, CONTOUR PATH TAPE MILL OPERATOR 5 mg at 07/06/23 0837 ramelteon (ROZEREM) [...] mg 15 mg/kg intravenous Q12H Gisele Courtney, CONTOUR PATH TAPE MILL OPERATOR Stopped at 07/06/23 0456 Objective Vitals: 24hr [...] Adult Diet Regular Diet effective now Question: ([facility]) Diet type Answer: Regular 07/06/23 1125 07/05/23 1453 Oral Nutrition Supplements ([facility]) Select Supplement: Thrive - Any Flavor; Quantity (# of cans): 1 can All Meals Question Answer Comment ([facility]) Select Supplement: Thrive - Any Flavor Quantity [...] Nikhil Samuel MD at 07/18/2023 11:03 AM LEASE ATTENDANT E ATTENDANT E ATTENDANT * Kristy Headley MD - 07/05/2023 12:41 PM CST Vascular Surgery Daily Progress Patient Name/MRN: Eriberto Chau [id number] Treatment Team: Vascular Surgery- Attending: Marcus Gamboa* Today's Date: 07/05/2023 Room/Bed: [id number] Admit Date: 07/04/2023 Code Status: Full Code [...] 0.5-20 mL 0.5-20 mL intra-catheter Q8H SUSAN Tererll Hooks MD 10 mL at 07/04/23 2216 [...] Adult Diet Regular Diet effective now Question: ([facility]) Diet type Answer: Regular 07/04/232146 Is&Os: I/O [...] Nikhil Samuel MD at 07/18/2023 11:03 AM LEASE ATTENDANT E ATTENDANT E ATTENDANT * Gisele Courtney CONTOUR PATH TAPE MILL OPERATOR - 07/05/2023 12:30 PM CST Images from [...] follow, appreciate recommendations Gisele Courtney NP 07/05/2023 [facility] Urology Cosigned by Marcus Gamboa MD at 07/14/2023 5:32 PM LEASE ATTENDANT E ATTENDANT E ATTENDANT E ATTENDANT E ATTENDANT * Navid Johnson MD - 07/04/2023 10:51 [...] Marcus Gamboa MD at 07/05/2023 7:13 AM LEASE ATTENDANT E ATTENDANT E ATTENDANT Associated attestation - Marcus Gamboa MD - 07/05/2023 7:13 AM LEASE ATTENDANT I have seen and examined the patient on 07/04/2023. I agree with the findings and plan of care as documented in the resident's/fellow's note.. documented in this encounter Consult Notes * Chung Burleson MD - 07/07/2023 6:22 PM CSTAssociated Order(s): IP CONSULT TO PAIN MANAGEMENT Pain Service Consult Eriberto Chau, [id number] Reason for Consult: Post procedural abdominal pain [...] Amitriptyline (Elavil) [] Levetiracetam (Keppra) [] Hydrocodone/APAP ([place]) [] Desipramine (Norpramin) [] Valproate (Depakote) [] [...] intravenous Q6H [facility] Gisele Courtney CONTOUR PATH TAPE MILL OPERATOR 15 mg at07/07/23 1713 Lactated Ringer's (LR) [...] mg oral TID with meals Gisele Courtney CONTOUR PATH TAPE MILL OPERATOR 200 mg at 07/07/23 1713 prochlorperazine (COMPAZINE) [...] Adult Diet Regular Diet effective now Question: ([facility]) Diet type Answer: Regular 07/06/23 1125 07/05/23 1453 Oral Nutrition Supplements ([facility]) Select Supplement: Thrive - Any Flavor; Quantity (# of cans): 1 can All Meals Question Answer Comment ([facility]) Select Supplement: Thrive - Any Flavor Quantity [...] IV: decrease Hydromorphone 0.5mg q 4hr PRN IV/CHALK CUTTER: none SubQ: none b. Adjuvants: Continue APAP [...] MD Acute Pain Service Department of Anesthesiology [facility], [facility] [employer] [facility] If you have questions or concerns, please call ([phone]) the Pain Management service. After hours, this is not an in-house pager, please reserve non-urgent calls from [phone]. We are happy to address emergent calls 20/12. 07/07/23 6:22 PM For patients or family members viewing this note through [employer]: This note was written as a [...] agree with the above Chung Burleson MD E ATTENDANT E ATTENDANT * Dominic Meraz RD - 07/07/2023 5:10 [...] 18 CREATININE mg/dL 0.80 < > 1.33* [id number] mL/min/1.73 m2 >90 < > 73 CALCIUM [...] of Weight Used for Estimated Protein : [place] Fluid Needs Based on : 1 ml/kcal Dietary Orders (From admission, onward) Start Ordered 07/06/23 1126 Adult Diet Regular Diet effective now Question: ([facility]) Diet type Answer: Regular 07/06/23 1125 07/05/23 1453 Oral Nutrition Supplements ([facility]) Select Supplement: Thrive - Any Flavor; Quantity (# of cans): 1 can All Meals Question Answer Comment ([facility]) Select Supplement: Thrive - Any Flavor Quantity [...] emesis was 07/04 per documentation. Last BM TYPE ROLLING MACHINE OPERATOR - Noted scheduled Pericolace BID. [...] Supplement tolerance, Electrolyte changes Dominic Meraz RD [phone] Osteopathic Physician-Weekend: [phone] E ATTENDANT * Angelica Mijares LCSW - 07/07/2023 4:43 PM CST SW consult: SW received consult for health disparity and social determinants of health. SW spoke with patient's mom regarding resource assistance needs. Patient's mom reported they have been assisting with their rent and utilities, however they are unsure how long he will be out of workand cannot financially support them skilled nursing. She also requested information and assistance with disability. SW sent several referrals via blabfeed for rental/mortgage assistance, utility bill assistance, and benefits eligibility assistance. She declined the need for any food related assistance as they already get food stamps for the family. She requested someone follow up with her regarding which referrals are accepted and able to provide assistance. LIZZ Hodgson LCSW E ATTENDANT * Dominic Meraz RD - 07/05/2023 4:09 [...] BUN SERUM mg/dL 18 CREATININE mg/dL 1.33* [id number] mL/min/1.73 m2 73 CALCIUM mg/dL 10.1 ALBUMIN [...] of Weight Used for Estimated Protein : [place] Fluid Needs Based on : 1 ml/kcal Dietary Orders (From admission, onward) Start Ordered 07/05/23 1453 Adult Diet Regular; Gatorade Diet effective now Comments: Please allow pt to order Gatorade as requested. Question Answer Comment ([facility]) Diet type Regular Other Services: Gatorade 07/05/23 1452 07/05/23 1453 Oral Nutrition Supplements ([facility]) Select Supplement: Thrive - Any Flavor; Quantity (# of cans): 1 can All Meals Question Answer Comment ([facility]) Select Supplement: Thrive - Any Flavor Quantity [...] episode of emesis on 07/04. Last BM TYPE ROLLING MACHINE OPERATOR. RD following. Wt Readings from [...] Supplement tolerance, Electrolyte changes Dominic Meraz RD [phone] Osteopathic Physician-Weekend: [phone] E ATTENDANT * Dalton Vizcaino MD - 07/04/2023 5:15 [...] Dalton Vizcaino MD Department of Surgery, PGY-2 [facility] in [place]/[facility] Please use [email or web address] to find phone number Cosigned by Nikhil Samuel MD at 07/18/2023 11:02 AM LEASE ATTENDANT E ATTENDANT E ATTENDANT * File, Paris Esquivel NP - 07/04/2023 [...] or concerns, please page Urology through the coagulating operator. Paris Villalpando NP 07/04/2023 Cosigned by Marcus Gamboa MD at 07/04/2023 6:50 PM LEASE ATTENDANT E ATTENDANT E ATTENDANT documented in this encounter Nursing Notes * aMriposa Harris RN - 07/08/2023 3:00 PM CST Patient discharged to home with mother. IV removed, meds received from mobile pharmacy, and discharge paperwork given and reviewed with patient. E ATTENDANT * Alicia Good RN - 07/07/2023 7:48 PM CST Pt. Is A&OX4, continue to complain of pain, had scheduled and PRN pain meds multiple times 9 oxy, dialudid), contd. On IVF, ambulated well with walker, eating meals good, was nauseated little in the morning, got some zofran, but has been better through the day E ATTENDANT * Idalia Travis RN - 07/06/2023 8:03 AM CST Pt returned to room [address], BP 140/68 E ATTENDANT * Sherri Negrete RN - 07/05/2023 4:35 [...] 0456 Dr. Barrientos updated the LR order E ATTENDANT E ATTENDANT documented in this encounter ED Notes * [...] Chronic back pain 06/24/2023 Pseudoaneurysm following procedure ([facility]) ([facility]) 06/24/2023 Infrarenal abdominal aortic aneurysm, without rupture ([facility]) 06/13/2023 Polysubstance abuse ([facility]) ([facility]) 06/10/2023 Moderate malnutrition ([facility]) ([facility]) 06/09/2023 Dissection of abdominal aorta ([facility]) ([facility]) 06/03/2023 Urinary retention 05/16/2023 Epistaxis 05/13/2023 Pneumonia 05/13/2023 HTN (hypertension) 05/13/2023 Dissection of thoracoabdominal aorta ([facility]) ([facility]) 05/02/2023 Dissection of aorta, unspecified portion of aorta ([facility]) 05/01/2023 Past Medical History: Diagnosis [...] Nagi Landa MD at 07/07/2023 9:57 AM LEASE ATTENDANT E ATTENDANT E ATTENDANT E ATTENDANT Associated attestation - Nagi Landa MD - 07/07/2023 9:57 AM LEASE ATTENDANT I have seen and examined the patient on 07/04/2023. I agree with the findings and plan of care as documented in the resident's note. * Essie Cuevas RN - 07/04/2023 12:12 PM CST Bed: [facility] Expected date: Expected time: Means of arrival: Comments: Triage pt Essie Cuevas RN 07/04/23 1212 E ATTENDANT * Tami Díaz RN - 07/04/2023 11:35 AM CST Pt to ED with lower left ABD pain this morning around 0900. Pt states he has chronic lower back pain but now the pain radiates to his ABD. Hx of HTN, AAA post TEVAR on 06/05 and kidney stones. E ATTENDANT documented in this encounter Miscellaneous Notes * [...] lb) as of 07/04/2023 -- -- -- [place] Weight: 70.7 kg (155 lb 13.8 oz) [...] medical record. Respectfully Lon HAMMER RN CCDS [email or web address] [phone] E ATTENDANT * Provider Query - Gisele Courtney NP [...] fat ? muscle ? fluid/edema 6: Reduced Mobile Heavy Equipment Mechanic Strength n/a Measurably reduced per device standards [...] medical record. Respectfully Lon HAMMER RN CCDS [email or web address] [phone] E ATTENDANT * Plan of Care - Mariposa Harris [...] control, safety Summary: Patient ready for discharge. E ATTENDANT * Plan of Care - Anabel Taylor [...] needs. Support following discharge: meron blankenship Mother [phone]; Solange Ireland [phone]; Geri Alejandre Partner [phone] Transportation: per mother F/U Appointments: to be arranged by the medical team prior to discharge Plan for weekend discharge: No identified CM needs at this time For weekend assistance, please check the treatment team in Epic for the assigned manager of case or contact the weekend Case Management phone E ATTENDANT * Plan of Care - Navin Ventura [...] Shift: monitor pain, spasm, I/O, vitals Summary: E ATTENDANT * Plan of Care - Harriett Ordonez [...] activity level will improve Outcome: Not Progressing E ATTENDANT * Plan of Care - Genevieve Ng LCSW - 07/06/2023 3:25 PM CST SW consulted due to patient being a 35% readmission risk, and this being patient's 5th inpatient admission. Patient was seen last admission by SW and SW assessment was completed on 06/15/2023. Patient's mother, Meron Blankenship ([phone]) was present at bedside at time of [...] to continue to follow. Genevieve Ng LCSW [phone] Predictive Model Details 35% (High Risk) Factor [...] 1% Current length of stay 0.942 days E ATTENDANT * Initial Assessments - Anabel Taylor RN - 07/06/2023 2:43 PM LEASE ATTENDANT CM Initial Assessment Interview Note Information Obtained [...] Coverage: [employer] Medicaid Prescription Coverage: yes Pharmacy: [facility]/pharmacy #[id number] - [place], [place] - [address] [facility] [address] [id number] - [place], [place] [address] [facility] [phone] -verified [facility] Primary Care Provider: Carl Strickland MD -new patient appointment Jul 13, 2023 Prior to Admission: Functional Status: Independent with ADLs Primary Caregiver: Self Support System: Spouse/Significant Other, Family members (meron blankenship Mother [phone]; Solange Ireland [phone]; Geri Alejandre Partner [phone]) Home Care Services: No Outpatient Services: No [...] Collaboration with patient, MD, direct care nurse, Senior Portfolio Manager, and other members of the health care team to assure needed interventions completed. 2. Return patient to optimal level of self-care post discharge. 3. City Bus Driver will follow for Discharge Planning - interventions [...] with the aftercare plan. Anabel Taylor RN E ATTENDANT * Plan of Care - José Luis [...] the pain will improve Outcome: Ongoing Summary: E ATTENDANT * Plan of Care - Ev Meza RN - 07/05/2023 6:24 PM CST Goals: Clinical Goals for the Shift: orient patient to floor, monitor vitals and I&O's, pain management, ambulation Summary: Continue to monitor vitals and temp for fever. Monitor and treat pain as ordered. E ATTENDANT * Plan of Care - Sherri Negrete [...] Pain level will decrease 07/05/2023 023 by Shreri Negrete RN Outcome: [...] patient has had no urine output overnight E ATTENDANT * Op Note - Marcus Gamboa MD - 07/04/2023 7:30 PM CST Operative Report SURGEON: Marcus Gamboa MD SURGICAL TEAM: Broke Beater: Essie Glass RN Otm Consultant: Guerrero Seals RT Scrub: Len Richards RN DATE OF SURGERY : 07/04/2023 PREOPERATIVE DIAGNOSIS: Pre-op Diagnosis * Ureteral stone [N20.1] POSTOPERATIVE DIAGNOSIS: Post-op Diagnosis * Ureteral stone [N20.1] PROCEDURE: CYSTOSCOPY, URETEROSCOPY (L) with EXTRACTION STONE (L), PLACEMENT STENT - URETERAL (L) INDICATION FOR PROCEDURE: 33yoM with a symptomatic left ureteral stone. ANESTHESIA: General IMPLANTS: Implant Name Type Inv. Item Serial No. Attendant Arcade Lot No. LRB No. Used [employer] Inlay [place] 6fr 28cm Pusher Fluoro Marker Atraumatic Insertion Latex [id number] - [id number] Stent [employer] Inlay [place] 6fr 28cm Pusher Fluoro Marker Atraumatic Insertion Latex Free [id number] [employer] [id number] Left 1 Implanted OPERATIVE DETAILS Estimated Blood [...] Over the wire, we advanced a 12-14 bahraini x 46 cm ureteral access sheath underfluoroscopic [...] Over the wire we placed a 6 bahraini x 28 cm left Bard Onlay ureteral [...] the entire procedure (including opening and closing). E ATTENDANT E ATTENDANT * Brief Op Note - Terrell Luna MD - 07/04/2023 7:30 PM LEASE ATTENDANT Operative Progress Note Surgical Team: Surgeon(s) and Role: * Marcus Gamboa MD - Primary * Terrell Luna MD - Resident - Assisting Anesthesiologist: Artem Zepeda MD [id number] SALES EXECUTIVE: Christoph Singh CRNA Broke Beater: Essie Glass RN Otm Consultant: Guerrero Seals RT Scrub: Len Richards RN [...] Implant Name Type Inv. Item Serial No. Attendant Arcade Lot No. LRB No. Used [employer] Inlay [place] 6fr 28cm Pusher Fluoro Marker Atraumatic Insertion Latex [id number] - [id number] Stent [employer] Inlay [place] 6fr 28cm Pusher Fluoro Marker Atraumatic Insertion Latex Free [id number] [employer] [id number] Left 1 Implanted Blood/Blood Products Transfused: 0 mls Complications: None Condition on Discharge from the operating room was stable Terrell Luna MD Date: 07/04/2023 Time: 8:02 PM Cosigned by Marcus Gamboa MD at 07/04/2023 9:18 PM LEASE ATTENDANT E ATTENDANT E ATTENDANT Associated attestation - Marcus Gamboa MD - 07/04/2023 9:18 PM LEASE ATTENDANT I have seen and examined the patient [...] device. By: Jonathan Borja MD Time: 07/04 1057 Comment: Spoke to urology they will come [...] stone By: Ney Acosta MD Time: 07/04 8142 Comment: Spoke with Urology, they think the [...] McElroy, Mitchell Sterling, MD Resident 07/04/23 1528 E ATTENDANT * ED Procedure Note - Rosey Posada MD - 07/04/2023 11:53 AM LEASE ATTENDANT Associated Order(s): ECG 12 lead Procedure ECG [...] the ED Rosey Posada MD 07/04/23 1155 E ATTENDANT documented in this encounter Plan of Treatment Pending Results Name Type Priority Associated Diagnoses Date /Time Creatine kinase (CK), total Lab STAT 07/04/2023 12:23 PM LEASE ATTENDANT Scheduled Orders Name Type Priority Associated Diagnoses Orde r Schedule Creatine kinase (CK), total Lab STAT Once for 1 Occur rences starting 07/04/2023 until 07/04/2023 documented as of this encounter Procedures Procedure Name Priority Date/Time Associated Diagnosis Comments VANCOMYCIN LEVEL TROUGH Timed 07/07/2023 1:32 AM LEASE ATTENDANT EGFR Routine 07/06/2023 10:04 PM LEASE ATTENDANT CBC WITHOUT DIFFERENTIAL Routine 07/06/2023 10:04 PM LEASE ATTENDANT PHOSPHORUS Routine 07/06/2023 10:04 PM LEASE ATTENDANT MAGNESIUM Routine 07/06/2023 10:04 PM LEASE ATTENDANT BASIC METABOLIC PANEL Routine 07/06/2023 10:[address] ABDOMEN PELVIS W CONTRAST ED Urgent/IP Urgent 07/06/2023 7:43 AM LEASE ATTENDANT CBC WITHOUT DIFFERENTIAL Timed 07/06/2023 5:26 AM LEASE ATTENDANT LACTATE Timed 07/05/2023 9:14 PM LEASE ATTENDANT EGFR Timed 07/05/2023 9:14 PM LEASE ATTENDANT CBC WITHOUT DIFFERENTIAL Timed 07/05/2023 9:14 PM LEASE ATTENDANT BASIC METABOLIC PANEL Timed 07/05/2023 9:14 PM LEASE ATTENDANT XR CHEST 1 VIEW ED Urgent/IP Urgent 07/05/2023 1:44 PM LEASE ATTENDANT XR ABDOMEN AP 1 VIEW ED Urgent/IP Urgent 07/05/2023 1:44 PM LEASE ATTENDANT LACTATE Routine 07/05/2023 1:09 PM LEASE ATTENDANT BLOOD CULTURE Timed 07/05/2023 1:09 PM LEASE ATTENDANT BLOOD CULTURE Timed 07/05/2023 1:09 PM LEASE ATTENDANT CBC WITHOUT DIFFERENTIAL Routine 07/05/2023 1:09 PM LEASE ATTENDANT URINE CULTURE Routine 07/05/2023 1:09 PM LEASE ATTENDANT FL FLUOROSCOPY < 1 HOUR IP Routine 07/04/2023 8:16 PM LEASE ATTENDANT Ureteral stone SURGICAL PATHOLOGY Routine 07/04/2023 7: 34 PM LEASE ATTENDANT Ureteral stone EXTRACTION STONE 07/04/2023 7:10 PM LEASE ATTENDANT Ureteral stone Case Notes [phone] PLACEMENT STENT - URETERAL 07/04/2023 7:10 PM LEASE ATTENDANT Ureteral stone Case Notes [phone] URETEROSCOPY 07/04/2023 7:10 PM LEASE ATTENDANT Ureteral stone Case Notes [phone] CYSTOSCOPY 07/04/2023 7:10 PM LEASE ATTENDANT Ureteral stone Case Notes [phone] TROPONIN I HIGH-SENSITIVITY 2-HOUR Timed 07/04/2023 2:19 PM LEASE ATTENDANT CTA CHEST ABDOMEN PELVIS ED Urgent/IP Urgent 07/04/2023 2:06 PM LEASE ATTENDANT URINALYSIS AND REFLEX TO MICROSCOPIC STAT 07/04/2023 1:08 PM LEASE ATTENDANT URINALYSIS, MICROSCOPIC ONLY STAT 07/04/2023 1:08 PM LEASE ATTENDANT XR CHEST 1 VIEW ED Urgent/IP Urgent 07/04/2023 12:46 PM LEASE ATTENDANT TROPONIN I HIGH-SENSITIVITY SERIES (BASELINE, 2HR, 4HR, 6HR) STAT 07/04/2023 12:23 PM LEASE ATTENDANT LACTATE STAT 07/04/2023 12:23 PM LEASE ATTENDANT EGFR STAT 07/04/2023 12:23 PM LEASE ATTENDANT DIFFERENTIAL AUTO STAT 07/04/2023 12: 23 PM LEASE ATTENDANT CBC WITH AUTO DIFFERENTIAL STAT 07/04/2023 12:23 PM LEASE ATTENDANT LIPASE STAT 07/04/2023 12:23 PM LEASE ATTENDANT CREATINE KINASE (CK), TOTAL STAT 07/04/2023 12:23 PM LEASE ATTENDANT COMPREHENSIVE METABOLIC PANEL STAT 07/04/2023 12:23 PM LEASE ATTENDANT ECG 12-LEAD STAT 07/04/2023 11:53 AM LEASE ATTENDANT documented in this encounter Results * Vancomycin level trough Draw trough 30 minutes prior to 4th dose. (07/07/2023 1:32 AM LEASE ATTENDANT) Vancomycin trough 14.5 10.0 - 20.0 mcg/mL [facility] Blood 07/07/2023 1:32 AM LEASE ATTENDANT 07/07/2023 1:57 AM LEASE ATTENDANT Narrative [facility] - 07/07/2023 2:37 AM LEASE ATTENDANT Draw trough 30 minutes prior to 4th dose. us Gisele Courtney CONTOUR PATH TAPE MILL OPERATOR LAB BLOOD ORDERABLES Final Res ult [facility] Department [place] [address] * eGFR (07/06/2023 10:04 PM LEASE ATTENDANT) Pathologist [facility] eGFR >90 >=60 mL/min/1. 73 m2 [facility] Comment: Interpretive Data Reference Interval Normal ?>/= [...] reviewed 2021. Blood 07/06/2023 10:0 4 PM LEASE ATTENDANT 07/06/2023 10:58 PM LEASE ATTENDANT Marcus Gamboa MD LAB BLOOD ORDERABLE S Final Result [facility] Department [place] [address] * (ABNORMAL) CBC without differential (07/06/2023 10:04 PM LEASE ATTENDANT) WBC 12.6(H) 3.8 - 9.9 K/cumm [facility] Hgb 8.0(L) 13.0 - 17.5 g/dL [facility] Hct 24.6(L) 38.9 - 50.3 % [facility] Plt 368 150 - 400 K/cumm [facility] MPV 9.4 9.1 - 12.3 fL [facility] RBC 2.82(L) 4.30 - 5.80 M/cumm [facility] MCV 87.2 81.3 - 96.4 fL [facility] MCH 28.4 27.1 - 33.3 pg [facility] MCHC 32.5 32.3 - 35.7 g/dL [facility] RDW CV 13.7 11.1 - 14.9 % [facility] RDW SD 43.5 35.7 - 48.1 fL [facility] NRBC abs 0.00 0.00 - 0.01 K/cumm [facility] Blood 07/06/2023 10:0 4 PM LEASE ATTENDANT 07/06/2023 10:57 PM LEASE ATTENDANT Marcus Gamboa MD LAB BLOOD ORDERABLE S Final Result [facility] [place] [address] * Phosphorus (07/06/2023 10:04 PM LEASE ATTENDANT) [facility] Phosphorus, pl 2.6 2.3 - 4.5 mg/dL [facility] Blood 07/06/2023 10:0 4 PM LEASE ATTENDANT 07/06/2023 10:58 PM LEASE ATTENDANT Marcus Gamboa MD LAB BLOOD ORDERABLE S Final Result [facility] [place] [address] * Magnesium (07/06/2023 10:04 PM LEASE ATTENDANT) [facility] Magnesium 1.7 1.4 - 2.5 mg/dL [facility] Blood 07/06/2023 10:0 4 PM LEASE ATTENDANT 07/06/2023 10:58 PM LEASE ATTENDANT Marcus Gamboa MD LAB BLOOD ORDERABLE S Final Result Performing Organization Address City/[facility]/[place] [address] * (ABNORMAL) Basic metabolic panel (07/06/2023 10:04 PM LEASE ATTENDANT) [facility] Sodium 140 135 - 145 mmol/L [facility] Potassium, pl 3.2(L) 3.3 - 4.9 mmol/L [facility] Chloride 102 97 - 110 mmol/L [facility] CO2 27 22 - 32 mmol/L [facility] Anion gap 11 2 - 15 mmol/L [facility] BUN 9 6 - 25 mg/dL [facility] Creatinine 0.80 0.80 - 1.30 mg/dL [facility] Glucose 106 70 - 199 mg/dL [facility] Comment: Interpretive Data Fasting glucose >/= 126 [...] Calcium 8.9 8.5 - 10.3 mg/dL [facility] Blood 07/06/2023 10:0 4 PM LEASE ATTENDANT 07/06/2023 10:58 PM LEASE ATTENDANT us Marcus Gamboa MD LAB BLOOD ORDERABLE S Final Result [facility] Department [place] [address] * CT Abdomen Pelvis W Contrast (07/06/2023 7:43 AM LEASE ATTENDANT) Anatomical Region Laterality Modality Body N/A Computed Tomogra phy 07/06/2023 8:32 AM LEASE ATTENDANT Impressions 07/06/2023 8:34 AM LEASE ATTENDANT 1. Thoracoabdominal aortic dissection with endovascular stent [...] Katy Llamas M.D. Narrative 07/06/2023 8:34 AM LEASE ATTENDANT EXAMINATION: ??Computed tomography of the abdomen and [...] signed by: Katy Llamas M.D. Gisele Courtney CONTOUR PATH TAPE MILL OPERATOR IMG CT PROCEDURES Final Result * (ABNORMAL) CBC without differential (07/06/2023 5:26 AM LEASE ATTENDANT) Pathologist [facility] WBC 15.7(H) 3.8 - 9.9 K/cumm [facility] Hgb 7.9(L) 13.0 - 17.5 g/dL [facility] Hct 23.9(L) 38.9 - 50.3 % [facility] Plt 327 150 - 400 K/cumm [facility] MPV 9.1 9.1 - 12.3 fL [facility] RBC 2.75(L) 4.30 - 5.80 M/cumm [facility] MCV 86.9 81.3 - 96.4 fL [facility] MCH 28.7 27.1 - 33.3 pg [facility] MCHC 33.1 32.3 - 35.7 g/dL [facility] RDW CV 13.9 11.1 - 14.9 % [facility] RDW SD 43.9 35.7 - 48.1 fL [facility] NRBC abs 0.00 0.00 - 0.01 K/cumm [facility] Blood 07/06/2023 5:26 AM LEASE ATTENDANT 07/06/2023 5:44 AM LEASE ATTENDANT Marcus Gamboa MD LAB BLOOD ORDERABLE S Final Result [facility] Department [place] [address] * eGFR (07/05/2023 9:14 PM LEASE ATTENDANT) Pathologist [facility] eGFR 67 >=60 mL/min/1. 73 m2 [facility] Comment: Interpretive Data Reference Interval Normal ?>/= [...] last reviewed 2021. Blood 07/05/2023 9:14 PM LEASE ATTENDANT 07/05/2023 10:22 PM LEASE ATTENDANT Marcus Gamboa MD LAB BLOOD ORDERABLE S Final Result Performing Organization Address [facility] Co de Phone Number [facility] Department [place] [employer] [address] * Lactate (07/05/2023 9:14 PM LEASE ATTENDANT) Lactate 0.7 0.7 - 2.0 mmol/L [facility] Blood 07/05/2023 9:14 PM LEASE ATTENDANT 07/05/2023 10:22 PM LEASE ATTENDANT Marcus Gamboa MD LAB BLOOD ORDERABLE S Final Result Performing Organization Address [facility] de Phone Number JAIRON [facility] Department [place] [address] * (ABNORMAL) Basic metabolic panel (07/05/2023 9:14 PM LEASE ATTENDANT) Pathologist [facility] Sodium 140 135 - 145 mmol/L [facility] Potassium, pl 3.6 3.3 - 4.9 mmol/L [facility] Chloride 104 97 - 110 mmol/L [facility] CO2 25 22 - 32 mmol/L [facility] Anion gap 11 2 - 15 mmol/L [facility] BUN 17 6 - 25 mg/dL [facility] Creatinine 1.43(H) 0.80 - 1.30 mg/dL [facility] Glucose 102 70 - 199 mg/dL [facility] Comment: Interpretive Data Fasting glucose >/= 126 [...] 2022. Calcium 8.7 8.5 - 10.3 mg/dL [facility] Blood 07/05/2023 9:14 PM LEASE ATTENDANT 07/05/2023 10:22 PM LEASE ATTENDANT Marcus Gamboa MD LAB BLOOD ORDERABLE S Final Result [facility] Department [place] [address] * (ABNORMAL) CBC without differential (07/05/2023 9:14 PM LEASE ATTENDANT) Pathologist [facility] WBC 19.6(H) 3.8 - 9.9 K/cumm [facility] Hgb 7.8(L) 13.0 - 17.5 g/dL [facility] Hct 24.9(L) 38.9 - 50.3 % [facility] Plt 351 150 - 400 K/cumm [facility] MPV 9.7 9.1 - 12.3 fL [facility] RBC 2.85(L) 4.30 - 5.80 M/cumm [facility] MCV 87.4 81.3 - 96.4 fL [facility] MCH 27.4 27.1 - 33.3 pg [facility] MCHC 31.3(L) 32.3 - 35.7 g/dL [facility] RDW CV 13.9 11.1 - 14.9 % [facility] RDW SD 44.2 35.7 - 48.1 fL [facility] NRBC abs 0.00 0.00 - 0.01 K/cumm [facility] Blood 07/05/2023 9:14 PM LEASE ATTENDANT 07/05/2023 10:22 PM LEASE ATTENDANT Marcus Gamboa MD LAB BLOOD ORDERABLE S Final Result [facility] Department [place] [address] * XR Chest 1 View (07/05/2023 1:44 PM LEASE ATTENDANT) Anatomical Region Laterality Modality Body, Chest N/A Computed Radiogr aphy 07/05/2023 3:06 PM LEASE ATTENDANT Impressions 07/05/2023 3:34 PM LEASE ATTENDANT Comparison 07/04/2023 Thoracic aortic and left subclavian [...] James Alvarado M.D. Narrative 07/05/2023 3:34 PM LEASE ATTENDANT EXAMINATION: 1 view chest radiograph Procedure Note [...] by: James Alvarado M.D. us Gisele Courtney CONTOUR PATH TAPE MILL OPERATOR IMG XR PROCEDURES Final Result * XR Abdomen Ap 1 Vw (07/05/2023 1:44 PM LEASE ATTENDANT) Anatomical Region Laterality Modality Body, Abdomen N/A Computed Radiogr aphy 07/05/2023 2:51 PM LEASE ATTENDANT Impressions 07/05/2023 2:54 PM LEASE ATTENDANT A single view of the abdomen is [...] Otoniel Mccain M.D. Narrative 07/05/2023 2:54 PM LEASE ATTENDANT EXAMINATION: Abdomen, one view. HISTORY: 33-year-old male [...] * Blood culture Blood (07/05/2023 1:09 PM LEASE ATTENDANT) Report Final Report: No growth [facility] Blood 07/05/2023 1:09 PM LEASE ATTENDANT 07/05/2023 2:17 PM LEASE ATTENDANT Narrative [facility] - 07/09/2023 4:00 PM LEASE ATTENDANT From a different site than #1. Collection->Peripheral [...] organism identification may be performed using the [employer] Gram-Positive Blood Culture Assay. This assay detects microbial DNA in positive blood culture broth via hybridization of target DNA to capture oligonucleotides on a microarray. This assay has been cleared by the [place] Food and Drug Administration and its performance characteristics have been verified by the [facility] Microbiology Laboratory. 5. ?For questions about this culture, contact the Microbiology Laboratory at [phone]. Interpretive data was last revised on 2019. us Gisele Courtney NP LAB MICROBIOLOGY - GENERAL ORD ERABLES Final Result [facility] Department [place] [address] * Blood culture Blood (07/05/2023 1:09 PM LEASE ATTENDANT) Report Final Report: No growth [facility] Blood 07/05/2023 1:09 PM LEASE ATTENDANT 07/05/2023 2:17 PM LEASE ATTENDANT Narrative [facility] - 07/09/2023 4:00 PM LEASE ATTENDANT Collection->Peripheral 1. ?Blood cultures are incubated for [...] organism identification may be performed using the [employer] Gram-Positive Blood Culture Assay. This assay detects microbial DNA in positive blood culture broth via hybridization of target DNA to capture oligonucleotides on a microarray. This assay has been cleared by the [place] Food and Drug Administration and its performance characteristics have been verified by the [facility] Microbiology Laboratory. 5. ?For questions about this culture, contact the Microbiology Laboratory at [phone]. Interpretive data was last revised on 2019. us Gisele Courtney NP LAB MICROBIOLOGY - GENERAL ORD ERABLES Final Result [facility] Department [place] [address] * Lactate (07/05/2023 1:09 PM LEASE ATTENDANT) Lactate 1.7 0.7 - 2.0 mmol/L [facility] Blood 07/05/2023 1:09 PM LEASE ATTENDANT 07/05/2023 1:48 PM LEASE ATTENDANT Gisele Courtney CONTOUR PATH TAPE MILL OPERATOR LAB BLOOD ORDERABLES Final Res ult Performing Organization Address [facility]/ZIP Co de Phone Number [facility] Department [place] [address] * (ABNORMAL) CBC without differential (07/05/2023 1:09 PM LEASE ATTENDANT) WBC 15.3(H) 3.8 - 9.9 K/cumm [facility] Hgb 9.0(L) 13.0 - 17.5 g/dL [facility] Hct 28.1(L) 38.9 - 50.3 % [facility] Plt 359 150 - 400 K/cumm [facility] MPV 9.4 9.1 - 12.3 fL [facility] RBC 3.21(L) 4.30 - 5.80 M/cumm [facility] MCV 87.5 81.3 - 96.4 fL [facility] MCH 28.0 27.1 - 33.3 pg [facility] MCHC 32.0(L) 32.3 - 35.7 g/dL [facility] RDW CV 13.5 11.1 - 14.9 % [facility] RDW SD 43.2 35.7 - 48.1 fL [facility] NRBC abs 0.00 0.00 - 0.01 K/cumm [facility] Blood 07/05/2023 1:09 PM LEASE ATTENDANT 07/05/2023 1:48 PM LEASE ATTENDANT Gisele Courtney CONTOUR PATH TAPE MILL OPERATOR LAB BLOOD ORDERABLES Final Res ult [facility] [place] [address] * Urine culture Urine, clean voided (07/05/2023 1:09 PM LEASE ATTENDANT) Report Final Report: No growth [facility] Urine, clean voided 07/05/2023 1:09 PM LEASE ATTENDANT 07/05/2023 2:10 PM LEASE ATTENDANT Narrative [facility] - 07/06/2023 4:05 PM LEASE ATTENDANT Indications for Culture:->Urology patient Testing performed by [facility] Microbiology Laboratory ([phone]) Gisele Courtney CONTOUR PATH TAPE MILL OPERATOR LAB MICROBIOLOGY - GENERAL ORD ERABLES Final Result Performing Organization Address [facility]/ZIP Co de Phone Number [facility] Department [place] [address] * FL Fluoroscopy < 1 Hour (07/04/2023 8:16 PM LEASE ATTENDANT) Narrative [facility] - 07/04/2023 8:17 PM LEASE ATTENDANT The images from this study are not interpreted by Radiology. ??Please refer to the physician's procedure / OR operative note. us Nagi Landa MD IMG FLUOROSCOPY PROCED URES Final Result Performing Organization Address [facility] Co de Phone Number [email or web address] * Surgical pathology (07/04/2023 7:34 PM LEASE ATTENDANT) Tissue (Calculus/calculi /stone, gross and Chemical Analysis) 07/04/2023 7:34 PM LEASE ATTENDANT Narrative PATHOLOGY [facility] - 07/06/2023 12:25 PM LEASE ATTENDANT EPIC results best viewed via link to PDF [facility] Karolina Thao Laboratory [place] [address] Note to Patients: This report may contain [...] Gender: ??M : ??1990 (Age: 33) Address: ??[address] [place] [address] ??[id number] Hospital #: ??[id number] Taken:07/04/2023 Received:07/05/2023 Reported: 07/06/2023 Patient Type: [facility] Inpatient ?? Service: Urology Location: [place] [address] Physician(s): ??MD Cral Multani M.D. Diagnosis: Left kidney, stone, removal [...] 0.7 x 0.3 cm aggregate of irregular [id number] calculi/fragments admixed with scant hemorrhagic material. ??The calculi are submitted for chemical analysis. ??Jar 1 (hemorrhagic material). ? PA(s): Kam Chang MS, SANCHEZ ([facility])CM By this signature, I attest that the [...] Surgical Pathology and Flow Cytometry Departments at [facility] as part of an ongoing ict quality assurance engineer program and in compliance with federally mandated [...] Surgical Pathology and Flow Cytometry Departments of [facility]. ??It has not been cleared or approved by the [place]. S. Food and Drug Administration. IMAGES AND SCANNED DOCUMENTS, IF INCLUDED, ONLY VIEWABLE IN PDF VERSION OF REPORT Marcus Gamboa MD LAB PATHOLOGY ORDER CAROLINE Final Result PATHOLOGY [facility] 3rd Floor [place], [place] [phone] * Troponin I high-sensitivity 2-hour (07/04/2023 2:19 PM LEASE ATTENDANT) Trop I hs <4 <=35 ng/L [facility] Comment: Interpretive Data For further hscTnI resources including the diagnostic algorithm and an aid in interpretation, copy and paste this link: [email or web address].testcatalog.org/[email or web address] Current Interpretive Data last revised 2019. Trop I hs delta 0 ng/L [facility] Trop I hs interp Insignificant [facility] H Blood 07/04/2023 2:19 PM LEASE ATTENDANT 07/04/2023 2:40 PM LEASE ATTENDANT [facility] Taco Navarro MD LAB BLOOD ORDERABLES Fin al Result [facility] Department [place] [address] * CTA Chest Abdomen Pelvis (07/04/2023 2:06 PM LEASE ATTENDANT) Anatomical Region Laterality Modality Body N/A Computed Tomogra phy 07/04/2023 2:48 PM LEASE ATTENDANT Addenda Addendum by Katy Llamas MD on 07/05/2023 9:15 AM LEASE ATTENDANT Addendum: Aortic measurements to add to findings: Maximum descending thoracic aorta: 52 x 47 mm, previously 49 x 45 mm Dictated by: Nigel Dooley M.D. The radiology attending physician has personally reviewed this study, and had reviewed and/or edited this written report and agrees with it. Electronically signed by: Katy Llamas M.D. Impressions 07/04/2023 2:55 PM LEASE ATTENDANT 1. Redemonstrated thoracoabdominal aortic dissection managed with [...] Katy Llamas M.D. Narrative 07/04/2023 2:55 PM LEASE ATTENDANT EXAMINATION: ??CT ANGIOGRAPHY OF THE CHEST, ABDOMEN [...] (ABNORMAL) Urinalysis, microscopic only (07/04/2023 1:08 PM LEASE ATTENDANT) WBC, ur 0-5 0 - 5 /HPF [facility] RBC, ur >50(A) 0 - 2 /HPF [facility] Epithelial cells, squamous, ur 1-5 0 - 5 /HPF [facility] Bacteria, ur 1+(A) [facility] Mucous, ur Present(A) [facility] Urine 07/04/2023 1:08 PM LEASE ATTENDANT 07/04/2023 1:14 PM LEASE ATTENDANT Nagi aLnda MD LAB URINE ORDERABLES F inal Result [facility] Department [place] [address] * (ABNORMAL) Urinalysis reflex to microscopic (07/04/2023 1:08 PM LEASE ATTENDANT) Color, ur Tessa Yellow [facility] Clarity, ur Cloudy(A) Clear [facility] Specific gravity, ur 1.020 1.003 - 1.030 [facility] pH, urine 5.5 [facility] Comment: Interpretive Data ? Urine pH is [...] 2017 Protein, ur ql 1+(A) Negative [facility] Glucose, ur ql Negative Negative [facility] Ketones, ur Negative Negative [facility] Bilirubin, ur Negative Negative [facility] Blood, ur 3+(A) Negative [facility] Urobilinogen, ur <2.0 <2.0 mg/dL [facility] Nitrite, ur Negative Negative [facility] Leukocyte esterase, ur Negative Negative [facility] UA reflex comment Reflex to microscopic UA will be performed. [facility] Urine 07/04/2023 1:08 PM LEASE ATTENDANT 07/04/2023 1:14 PM LEASE ATTENDANT us Nagi Landa MD LAB URINE ORDERABLES F inal Result [facility] Department [place] [address] * XR Chest 1 Vw Portable (07/04/2023 12:46 PM LEASE ATTENDANT) Anatomical Region Laterality Modality Body, Chest N/A Computed Radiogr aphy 07/04/2023 12:5 1 PM LEASE ATTENDANT Impressions 07/04/2023 12:51 PM LEASE ATTENDANT Comparison 06/16/2023 Thoracic endovascular stent grafting redemonstrated No new focal consolidation, pneumothorax, or pleural effusion. Stable cardiomediastinal silhouette. Electronically signed by: Shahrzad Zimmerman M.D. Narrative 07/04/2023 12:51 PM LEASE ATTENDANT EXAMINATION: 1 view chest radiograph Procedure Note Shahrzad Zimmerman MD - 07/04/2023 EXAMINATION: 1 view chest radiograph IMPRESSION: Comparison 06/16/2023 Thoracic endovascular stent grafting redemonstrated No new focal consolidation, pneumothorax, or pleural effusion. Stable cardiomediastinal silhouette. Electronically signed by: Shahrzad Zimmerman M.D. us Jonathan Borja MD IMG XR PROCED URES Final Result * Creatine kinase (CK), total (07/04/2023 12:23 PM LEASE ATTENDANT) CK 55 40 - 300 Units/L [facility] Blood 07/04/2023 12:2 3 PM LEASE ATTENDANT 07/04/2023 12:36 PM LEASE ATTENDANT Nagi Landa MD LAB BLOOD ORDERABLES F inal Result [facility] Department [place] [address] * eGFR (07/04/2023 12:23 PM LEASE ATTENDANT) eGFR 73 >=60 mL/min/1. 73 m2 [facility] Comment: Interpretive Data Reference Interval Normal ?>/= [...] reviewed 2021. Blood 07/04/2023 12:2 3 PM LEASE ATTENDANT 07/04/2023 12:36 PM LEASE ATTENDANT Guille Navarro MD LAB BLOOD ORDERABLES Fin al Result [facility] Department [place] [address] * (ABNORMAL) Differential, auto (07/04/2023 12:23 PM LEASE ATTENDANT) Neutrophil abs 8.5(H) 1.5 - 6.5 K/cumm [facility] Imm gran abs 0.1 0.0 - 0.1 K/cumm [facility] Lymphocyte abs 1.2 0.8 - 3.3 K/cumm [facility] Monocyte abs 1.0(H) 0.2 - 0.8 K/cumm [facility] Eosinophil abs 0.1 0.0 - 0.5 K/cumm [facility] Basophil abs 0.1 0.0 - 0.1 K/cumm [facility] Neutrophil pct 78.0 % [facility] Comment: Interpretive Data Percent cell count reference ranges are not reported, since discordance with absolute values may lead to misinterpretation of CBC data. Current Interpretive Data was last revised on 2017. Imm gran pct 0.9 % [facility] Comment: Interpretive Data Percent cell count reference ranges are not reported, since discordance with absolute values may lead to misinterpretation of CBC data. Current Interpretive Data was last revised on 2017. Lymphocyte pct 10.9 % [facility] Comment: Interpretive Data Percent cell count reference ranges are not reported, since discordance with absolute values may lead to misinterpretation of CBC data. Current Interpretive Data was last revised on 2017. Monocyte pct 8.7 % [facility] Comment: Interpretive Data Percent cell count reference ranges are not reported, since discordance with absolute values may lead to misinterpretation of CBC data. Current Interpretive Data was last revised on 2017. Eosinophil pct 0.9 % [facility] Comment: Interpretive Data Percent cell count reference ranges are not reported, since discordance with absolute values may lead to misinterpretation of CBC data. Current Interpretive Data was last revised on 2017. Basophil pct 0.6 % [facility] Comment: Interpretive Data Percent cell count reference ranges are not reported, since discordance with absolute values may lead to misinterpretation of CBC data. Current Interpretive Data was last revised on 2017. Blood 07/04/2023 12:2 3 PM LEASE ATTENDANT 07/04/2023 12:36 PM LEASE ATTENDANT Guille Navarro MD LAB BLOOD ORDERABLES Fin al Result Performing Organization Address [facility] de Phone Number [facility] Department [place] [address] * Lactate (07/04/2023 12:23 PM LEASE ATTENDANT) Lactate 0.8 0.7 - 2.0 mmol/L [facility] Blood 07/04/2023 12:2 3 PM LEASE ATTENDANT 07/04/2023 12:36 PM LEASE ATTENDANT Jonathan Borja MD LAB BLOOD ORD ERABLES Final Result Performing Organization Address [facility] de Phone Number [facility] Department [place] [address] * Troponin I high-sensitivity series (baseline, 2hr, 4hr, 6hr) (07/04/2023 12:23 PM LEASE ATTENDANT) Trop I hs <4 <=35 ng/L [facility] Comment: Interpretive Data For further hscTnI resources including the diagnostic algorithm and an aid in interpretation, copy and paste this link: [email or web address].testcatalog.org/[email or web address] Current Interpretive Data last revised 2019. Blood 07/04/2023 12:2 3 PM LEASE ATTENDANT 07/04/2023 12:36 PM LEASE ATTENDANT Nagi Landa MD LAB BLOOD ORDERABLES F inal Result Performing Organization Address [facility] Co de Phone Number [facility] Department [place] [address] * Lipase (07/04/2023 12:23 PM LEASE ATTENDANT) Pathologist [facility] Lipase 13 10 - 99 Units/L [facility] Blood (Blood, Venous) 07/04/2023 12:23 PM LEASE ATTENDANT 07/04/2023 12:36 PM LEASE ATTENDANT Nagi Landa MD LAB BLOOD ORDERABLES F inal Result [facility] Department [place] [address] * (ABNORMAL) Comprehensive metabolic panel (07/04/2023 12:23 PM LEASE ATTENDANT) Pathologist [facility] Sodium 137 135 - 145 mmol/L [facility] Potassium, pl 4.2 3.3 - 4.9 mmol/L [facility] Chloride 101 97 - 110 mmol/L [facility] CO2 23 22 - 32 mmol/L [facility] Anion gap 13 2 - 15 mmol/L [facility] BUN 18 6 - 25 mg/dL [facility] Creatinine 1.33(H) 0.80 - 1.30 mg/dL [facility] Glucose 98 70 - 199 mg/dL [facility] Comment: Interpretive Data Fasting glucose >/= 126 [...] 2022. Calcium 10.1 8.5 - 10.3 mg/dL [facility] Bilirubin, total 0.3 0.1 - 1.2 mg/dL [facility] Protein, pl 9.8(H) 6.5 - 8.5 g/dL [facility] Albumin 4.1 3.5 - 5.0 g/dL [facility] Alk phos 105 40 - 130 Units/L [facility] ALT 13 7 - 55 Units/L [facility] AST 13 10 - 50 Units/L [facility] Blood 07/04/2023 12:2 3 PM LEASE ATTENDANT 07/04/2023 12:36 PM LEASE ATTENDANT Nagi Landa MD LAB BLOOD ORDERABLES F inal Result [facility] Department [place] [address] * (ABNORMAL) CBC with auto differential (07/04/2023 12:23 PM LEASE ATTENDANT) WBC 10.9(H) 3.8 - 9.9 K/cumm [facility] Hgb 9.7(L) 13.0 - 17.5 g/dL [facility] Hct 31.1(L) 38.9 - 50.3 % [facility] Plt 437(H) 150 - 400 K/cumm [facility] MPV 9.2 9.1 - 12.3 fL [facility] RBC 3.52(L) 4.30 - 5.80 M/cumm [facility] MCV 88.4 81.3 - 96.4 fL [facility] MCH 27.6 27.1 - 33.3 pg [facility] MCHC 31.2(L) 32.3 - 35.7 g/dL [facility] RDW CV 13.7 11.1 - 14.9 % [facility] RDW SD 44.0 35.7 - 48.1 fL [facility] NRBC abs 0.00 0.00 - 0.01 K/cumm [facility] Blood (Blood, Venous) 07/04/2023 12:23 PM LEASE ATTENDANT 07/04/2023 12:36 PM LEASE ATTENDANT Nagi Landa MD LAB BLOOD ORDERABLES F inal Result [facility] Department [place] [address] * ECG 12-LEAD (07/04/2023 11:53 AM LEASE ATTENDANT) Narrative [facility] - 07/04/2023 11:53 AM LEASE ATTENDANT Rosey Posada MD ? 07/04/2023 11:55 AM [...] in the ED Rosey Posada MD 07/04/23 3905 us Nagi Landa MD ECG ORDERABLES Final Result [facility] documented in this encounter Visit [...] 1800, Indications: PainIndications:Pain Given 07/08/2023 12:12 PM LEASE ATTENDANT 1,000 mg Given 07/08/2023 5:38 AM LEASE ATTENDANT 1,000 mg Given 07/08/2023 12:10 AM LEASE ATTENDANT 1,000 mg albuterol HFA (PROVENTIL HFA,VENTOLIN HFA,PROAIR HFA) 90 mcg/actuation inhaler 2 puff 2 puff, inhalation, Every 4 hours PRN (sales correspondent), wheezing, Starting on Tue07/04/23 at 2150 amLODIPine (NORVASC) tablet 10 mg 10 mg, oral, Daily, First dose on Tue07/05/23 at 0900 Given 07/08/2023 8:20 AM LEASE ATTENDANT 10 mg Given 07/07/2023 8:47 AM LEASE ATTENDANT 10 mg Given 07/06/2023 8:37 AM LEASE ATTENDANT 10 mg aspirin chewable tablet 81 mg 81 mg, oral, Daily, First dose on Tue07/05/23 at 0900 Given 07/08/2023 8:20 AM LEASE ATTENDANT 81 mg Given 07/07/2023 8:46 AM LEASE ATTENDANT 81 mg Given 07/06/2023 8:38 AM LEASE ATTENDANT 81 mg calcium carbonate (TUMS) chewable tablet 500 mg 500 mg (200 mg of elemental calcium), oral, 3 times daily PRN, indigestion, heartburn, Starting on Tue07/05/23 at 0558 carvediloL (COREG) tablet 25 mg 25 mg, oral, 2 times daily with meals (bkfst, dinner), First dose on Tue07/05/23 at 0800 Given 07/08/2023 8:19 AM LEASE ATTENDANT 25 mg Given 07/07/2023 5:20 PM LEASE ATTENDANT 25 mg Given 07/07/2023 8:46 AM LEASE ATTENDANT 25 mg cefepime (MAXIPIME) 1,000 mg/10 mL in sterile water (premix) 1,000 mg 1,000 mg, intravenous, at 120 mL/hr, Administer over 5 Minutes, Every 12 hours scheduled, First dose on Tue07/05/23 at 1315, Indications: Urinary Tract/Genitourinary InfectionIndications:Urinary Tract/Genitourinary Infection New Bag 07/08/2023 12:11 PM LEASE ATTENDANT 1,000 mg 120 mL/hr New Bag 07/08/2023 12:10 AM LEASE ATTENDANT 1,000 mg 120 mL/hr New Bag 07/07/2023 12:46 PM LEASE ATTENDANT 1,000 mg 120 mL/hr enoxaparin (LOVENOX) syringe 40 mg 40 mg, subcutaneous, Daily (for enoxaparin), First dose on Tue07/05/23 at 2100, Indications: Deep Vein Thrombosis PreventionIndications:Deep Vein Thrombosis Prevention Given 07/07/2023 9:20 PM LEASE ATTENDANT 40 mg Left Lower Abdomen Given 07/06/2023 8:15 PM LEASE ATTENDANT 40 mg Le ft Upper Arm Given 07/05/2023 9:26 PM LEASE ATTENDANT 40 mg Le ft Lower Abdomen gabapentin (NEURONTIN) capsule 300 mg 300 mg, oral, 3 times daily, First dose on Tue07/04/23 at 2230 Given 07/08/2023 8:19 AM LEASE ATTENDANT 300 mg Given 07/07/2023 9:23 PM LEASE ATTENDANT 300 mg Given 07/07/2023 5:13 PM LEASE ATTENDANT 300 mg hydrALAZINE (APRESOLINE) tablet 50 mg 50 mg, oral, 3 times daily, First dose on Tue07/04/23 at 2300, Indications: hypertensionIndications:hypertension Given 07/08/2023 8:37 AM LEASE ATTENDANT 50 mg Given 07/07/2023 9:24 PM LEASE ATTENDANT 50 mg Given 07/07/2023 5:19 PM LEASE ATTENDANT 50 mg hyoscyamine (LEVSIN) sublingual tablet 125 mcg 125 mcg, sublingual, Every 6 hours, First dose on Tue07/08/23 at 1130, Indications: Urinary IncontinenceIndications:Urinary Incontinence Given 07/08/2023 12:34 PM LEASE ATTENDANT 125 mcg ketorolac (TORADOL) 15 mg/mL injection 15 mg 15 mg, intravenous, Every 6 hours scheduled, First dose on Tue07/07/23 at 1200, For 6 doses Given 07/08/2023 12:11 PM LEASE ATTENDANT 15 mg Given 07/08/2023 5:39 AM LEASE ATTENDANT 15 mg Given 07/08/2023 12:10 AM LEASE ATTENDANT 15 mg methocarbamoL (ROBAXIN) tablet 750 mg 750 mg, oral, 3 times daily, First dose (after last modification) on Tue07/07/23 at 2100 Given 07/08/2023 8:20 AM LEASE ATTENDANT 750 mg Given 07/07/2023 9:20 PM LEASE ATTENDANT 750 mg ondansetron (ZOFRAN) injection 4 mg 4 mg, intravenous, Administer over 2 Minutes, Every 6 hours PRN, nausea, vomiting, 1 st line, Starting on Tue07/05/23 at 0954 Given 07/07/2023 10:18 AM LEASE ATTENDANT 4 mg Given 07/07/2023 3:28 AM LEASE ATTENDANT 4 mg Given 07/06/2023 8:30 PM LEASE ATTENDANT 4 mg oxyBUTYnin XL (DITROPAN-XL) extended release tablet 10 mg 10 mg, oral, Daily, First dose on Tue07/06/23 at 1200, Do not crush, chew, cut, dissolve, open or otherwise manipulate tablet/capsule. Given 07/08/2023 8:20 AM LEASE ATTENDANT 10 mg Given 07/07/2023 8:47 AM LEASE ATTENDANT 10 mg Given 07/06/2023 12:06 PM LEASE ATTENDANT 10 mg oxyCODONE (ROXICODONE) tablet 5 mg 5 mg, oral, Every 4 hours PRN, 1st line for pain, Starting on Tue07/06/23 at 0648, May administer 1 hour after 1st line agent for uncontrolled or increasing pain. , Indications: PainIndications:Pain Given 07/08/2023 2:36 PM LEASE ATTENDANT 5 mg Given 07/08/2023 9:59 AM LEASE ATTENDANT 5 mg Given 07/07/2023 4:51 PM LEASE ATTENDANT 5 mg phenazopyridine (PYRIDIUM) tablet 200 mg 200 mg, oral, 3 times daily with meals, First dose on Tue07/05/23 at 1200, May discolor urine and sclera. Can stain undergarments and contact lenses. Given 07/08/2023 12:12 PM LEASE ATTENDANT 200 mg Given 07/08/2023 8:20 AM LEASE ATTENDANT 200 mg Given 07/07/2023 5:13 PM LEASE ATTENDANT 200 mg prochlorperazine (COMPAZINE) injection 5 mg 5 mg, intravenous, Administer over 2 Minutes, Every 6 hours PRN, nausea, vomiting, 2nd line, Starting on Tue07/05/23 at 0955 Given 07/07/2023 6:34 AM LEASE ATTENDANT 5 mg Given 07/07/2023 12:40 AM LEASE ATTENDANT 5 mg Given 07/06/2023 8:37 AM LEASE ATTENDANT 5 mg ramelteon (ROZEREM) tablet 8 mg 8 mg, oral, Nightly PRN, sleep, Starting on Tue07/05/23 at 0558, Indications: Sleep-Onset InsomniaIndications:Sleep-Onset Insomnia Given 07/07/2023 9:24 PM LEASE ATTENDANT 8 m g senna-docusate (PERICOLACE) 8.6-50 mg per tablet 2 tablet 2 tablet, oral, 2 times daily, First dose on Tue07/04/23 at 2230 Given 07/08/2023 8:19 AM LEASE ATTENDANT 2 tablets Given 07/07/2023 9:20 PM LEASE ATTENDANT 2 tablets Given 07/07/2023 8:45 AM LEASE ATTENDANT 2 tablets simethicone (MYLICON) chewable tablet 80 mg 80 mg, oral, 2 times daily PRN, flatulence, other, gas pain, Starting on Tue07/05/23 at 0558 Given 07/06/2023 8:37 AM LEASE ATTENDANT 80 mg sodium chloride 0.9% flush 0.5-20 mL 0.5-20 mL, intra-catheter, Every 8 hours scheduled, First dose on Tue07/04/23 at 2230, Flush volume based on line type and size. Given 07/08/2023 12:12 PM LEASE ATTENDANT 1 0 mL Given 07/08/2023 5:39 AM LEASE ATTENDANT 10 mL Given 07/07/2023 12:47 PM LEASE ATTENDANT 10 mL sodium chloride 0.9% flush 0.5-20 mL 0.5-20 mL, intra-catheter, As needed, line care, Starting on Tue07/04/23 at 2147, Flush volume based on line type and size. Flush before and after each use. Given 07/07/2023 3:28 AM LEASE ATTENDANT 10 mL Given 07/06/2023 10:38 AM LEASE ATTENDANT 10 mL sodium chloride 0.9% irrigation As needed, Starting on Tue07/04/23 at 1901, Intra-Op Given 07/04/2023 7:02 PM LEASE ATTENDANT 3,000 mL Given 07/04/2023 7:01 PM LEASE ATTENDANT 1,000 mL tamsulosin (FLOMAX) extended release capsule 0.4 mg 0.4 mg, oral, Daily with dinner, First dose on Tue07/05/23 at 1800, Do not crush, chew, cut, dissolve, open or otherwise manipulate tablet/capsule. Given 07/07/2023 5:12 PM LEASE ATTENDANT 0.4 mg Given 07/06/2023 5:51 PM LEASE ATTENDANT 0.4 mg Given 07/05/2023 6:44 PM LEASE ATTENDANT 0.4 mg vancomycin 1500 mg/515 mL in sodium chloride 0.9% (premix) 1,500 mg 1,500 mg (rounded from 1,462.5 mg = 15 mg/kg ? 97.5 kg), intravenous, Administer over 90 Minutes, Every 12 hours, First dose on Tue07/05/23 at 1400, Indications: Urinary Tract/Genitourinary InfectionIndications:Urinary Tract/Genitourinary Infection New Bag 07/08/2023 2:11 AM LEASE ATTENDANT 1,500 mg New Bag 07/07/2023 2:39 PM LEASE ATTENDANT 1,500 mg New Bag 07/07/2023 2:45 AM LEASE ATTENDANT 1,500 mg documented in this encounter Discontinued [...] Recently Administered Medications Times are shown in LEASE ATTENDANT. Scheduled Medication Order 07/06/2023 07/07/2023 07/08/2023 acetaminophen [...] Ventura RN)1400 (Due - Provider: Paris Garcia [facility]) Continuous Medication Order 07/06/2023 07/07/2023 07/08/2023 Lactated [...] 2 puff, inhalation, Every 4 hours PRN (sales correspondent), wheezing, Starting on Tue07/04/23 at 2150 [...] 07/04/2023 documented in this encounter Care Teams Change Number Operator Relationship Specialty Start Date End Date Carl Strickland MD [address] [place] [address] PCP - General Internal Medicine 06/06/23 Leo Manzano MD [address] [facility] [address] [place] [address] Surgeon Vascular Surgery 05/16/23 documented as of this encounter
--- OUTSIDE RECORDS SUMMARY | 2024-05-30 06:30 | XMS_ITS | Encounter Summary ---
Author Organization [facility] Address [address] [place] [address] Phone Care Team Providers Care Assistant Professor Of Music Name Role Phone Unknown, Notinfile Primary Care Provider Unavail able Leo Manzano MD Unavailable [phone] Encounter Details Date Type Department Care Team (Late st Contact Info) Description 05/25/2023 Telephone [facility] Vascular Surgery [address] [facility] [address] [place] [address] Girma Chang, KEN Social History Tobacco Use Types Packs/Day Years Used Date Smoking Tobacco: Never Smokeless Tobacco: Never Personal Safety Answer Date Recorded Getting School Help Needed Denies 05/09 Sex and Gender Information Value Date Recorded Sex Assigned at Not on file Legal Sex Male 3:42 AM ADVANCED MANUFACTURING TECHNICIAN Gender Identity Not on file Sexual Orientation Straight 06/12/2023 11 :43 PM ADVANCED MANUFACTURING TECHNICIAN documented as of this encounter Miscellaneous Notes [...] see if there was something the social service manager could do, she checked with the floor SW and she stated not that he is outpt and they should reach out to his PCP. I let the pt mother know this and she said ok and was disappointed. NCED MANUFACTURING TECHNICIAN documented in this encounter Plan of Treatment Not on file documented as of this encounter Visit Diagnoses Not on filedocumented in this encounter Care Teams Assistant Professor Of Music Relationship Specialty Start Date End Date Unknown, Notinfile PCP - General 04/30/23 06/05/23 Leo Manzano MD [address] [facility] [address] [place] [address] Surgeon Vascular Surgery 05/16/23 documented as of this encounter
--- OUTSIDE RECORDS SUMMARY | 2024-05-30 06:30 | XMS_ITS | Encounter Summary ---
Author Organization [facility] Address [address] [place] [address] Phone Care Team Providers Care Museum Attendant Name Role Phone Unknown, Notinfile Primary Care Provider Unavail able Leo Manzano MD Unavailable [phone] Reason for Referral * MRI/CAT/PET Scan (Routine) - Closed Specialty Diagnoses / Procedures Referred By Contac t Referred To Contact Radiology Diagnoses Dissection of thoracoabdominal aorta (CMS/HCC) (HCC) Procedures CTA Chest Abdomen Pelvis Leo Manzano MD [address] [facility] [address] [place] [address] Phone: tel: fax: [address] [phone] Referral ID Status Reason Start Date Expiration Date Visits Re quested Visits Authorized [id number] Closed 07/19/2023 09/17/2023 1 1 AUTHOR Encounter Details Date Type Department Care Team (Late st Contact Info) Description 05/17/2023 Orders Only [facility] Surgery [address] [facility] 8[address] [place] [address] [place] [address] Leo Manzano MD [address] [facility] [address] [place] [address] 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) Social History Tobacco Use Types Packs/Day Years Used Date Smoking Tobacco: Never Smokeless Tobacco: Never Personal Safety Answer Date Recorded Getting School Help Needed Denies 05/09 Sex and Gender Information Value Date Recorded Sex Assigned at Not on file Legal Sex Male 3:42 AM GAME AUTHOR Gender Identity Not on file Sexual Orientation Straight 06/12/2023 11 :43 PM GAME AUTHOR documented as of this encounter Plan of Treatment Not on file documented as of this encounter Results * CTA Chest Abdomen Pelvis (08/03/2023 1:22 PM GAME AUTHOR) Anatomical Region Laterality Modality Body N/A Computed Tomogra phy 08/03/2023 2:43 PM GAME AUTHOR Impressions 08/03/2023 4:11 PM GAME AUTHOR 1. ??Unchanged thoracoabdominal aortic dissection managed with [...] Monster Easley M.D. Narrative 08/03/2023 4:11 PM GAME AUTHOR EXAMINATION: ??CTA CHEST ABDOMEN PELVIS HISTORY: Aortic [...] (HCC) documented in this encounter Care Teams Museum Attendant Relationship Specialty Start Date End Date Unknown, Notinfile PCP - General 04/30/23 06/05/23 Leo Manzano MD [address] [place] [address] Surgeon Vascular Surgery 05/16/23 documented as of this encounter
--- OUTSIDE RECORDS SUMMARY | 2024-05-30 06:30 | XMS_ITS | Encounter Summary ---
Author Organization [facility] Healthcare Address [address] [place] [address] Care Team Providers Care Senior Software Quality Analyst Name Role Phone Unknown, Notinfile Primary Care Provider Unavail able Leo Manzano MD Unavailable [phone] Carl Strickland MD Primary Care Provider Reason for Visit * Reason Comments Post-op Problem * Auth/Cert (Routine) Specialty Diagnoses / Procedures Referred By Contac t Referred To Contact Diagnoses Dissection of abdominal aorta (CMS/HCC) (HCC) Procedures NA Referral ID Status Reason Start Date Expiration Date Visits Re quested Visits Authorized [id number] 1 1 Encounter Details Date Type Department Care Team (Latest Contact Info) Description 06/03/2023 6:25 PM COT ASSEMBLER - 06/11/2023 12:05 PM COT ASSEMBLER Hospital Encounter [facility] [address] [place] [address] Tressa Sorensen MD [address] [place] [address] Alonzo [place] MD [address] [facility] [id number] [place] [address] Marcus Amaya MD [address] [place] [address] Nikhil Samuel MD [address] [place] [address] Dissection of abdominal aorta (CMS/HCC) (HCC) (Primary Dx); Abdominal pain determined by examination; HTN (hypertension), malignant; Dissection of thoracoabdominal aorta (CMS/HCC) (HCC) Discharge Disposition: Discharge to home or self care Social History Tobacco Use Types Packs/Day Years Used Date Smoking Tobacco: Never Smokeless Tobacco: Never [facility] Utilities Answer Date Recorded In the [...] often do you attend chur ch or jainism services? More than 4 times [...] slept in a alf (including now)? No 06/08/2023 Personal Safety Answer Date Recorded Getting School Help Needed Denies 05/09 Sex and Gender Information Value Date Recorded Sex Assigned at Not on file Legal Sex Male 3:42 AM COT ASSEMBLER Gender Identity Not on file Sexual Orientation Straight 06/12/2023 11 :43 PM COT ASSEMBLER documented as of this encounter Last Filed Vital Signs Vital Sign Reading Time Taken Comments Blood Pressure 158/112 06/11/2023 8:21 AM COT ASSEMBLER Pulse 97 06/11/2023 8:21 AM COT ASSEMBLER Temperature 36.8 ??C (98.3 ??F) 06/11/2023 7:07 AM CS T Respiratory Rate 15 06/11/2023 8:21 AM COT ASSEMBLER Oxygen Saturation 96% 06/11/2023 8:21 AM COT ASSEMBLER Inhaled Oxygen Concentration - - Weight 100.7 kg (222 lb 0.1 oz) 06/11/2023 6:00 AM COT ASSEMBLER Height 175.3 cm (5' 9 ) 06/04/2023 1:05 AM COT ASSEMBLER Body Mass Index 32.78 06/04/2023 1:05 AM COT ASSEMBLER documented in this encounter Discharge Summaries * Shannon Bran NP - 06/09/2023 2:44 PM CST Inpatient Discharge Summary BRIEF OVERVIEW Admitting Provider: Nikhil Samuel MD Discharge Provider: Nikhil Samuel MD Primary Care Physician at Discharge: Carl [place] MD [phone] Admission Date: 06/03/2023 Discharge Date: 06/11/2023 Admission Location: [facility] Problems/Diagnoses: Principal Problem: Dissection of abdominal aorta [...] [facility] MOB1 LOZA 06/22/2023 1:30 PM [facility] CT-6 [facility] CT [facility] Main 06/22/2023 3:00 PM Leo Manzano MD [facility] [id number] Cosigned by Nikhil Samuel MD at 06/21/2023 11:39 AM COT ASSEMBLER ASSEMBLER ASSEMBLER documented in this encounter Medications at Time [...] will recommend genetic testing as an outpatient ASSEMBLER * Bettie Wheeler NP - 06/10/2023 2:49 PM CST Vascular Surgery Daily Progress Patient Name/MRN: Eriberto Chau [id number] Treatment Team: Vascular Surgery- Pager: Attending: Nikhil Samuel MD Today's Date: 06/10/2023 Room/Bed: [id number] Admit Date: 06/03/2023 Code Status: Full Code [...] tablet 1,000 mg 1,000 mg oral Q6H [facility] Sreekanth Armstrong NP 1,000 mg at [...] Dr. Abarca as outpatient for genetics testing. [facility] Patient Centered Goal for Treatment: to go home and not come back Agree with patient centered goal: yes For patients or family members viewing this note through [employer] programs: This note was written as a [...] Nikhil Samuel MD at 06/21/2023 11:39 AM COT ASSEMBLER ASSEMBLER ASSEMBLER * Ana Laura Starr RD - 06/09/2023 [...] POC -- -- -- < > -- [id number] mL/min/1.73 m2 >90 >90 >90 < > [...] Adult Diet Regular Diet effective now Question: ([facility]) Diet type Answer: Regular 06/06/23 1429 Allergies: Reviewed. IMPRESSION: 06/09 - RD screened pt per MST score of 3. Pt reports eating less after may 16, 2023 - was eating only jello and McChicken. Reports having N/V/D MANAGER GIFT, but denies it during the hospital stay. [...] depth pinch but not ample Muscle Loss [place] - Temporalis Muscle: Slight depression Clavicle [...] I/O Ana Laura Starr MS, RD, LD [facility] ASSEMBLER * Shannon Bran NP - 06/09/2023 11:45 AM CST Vascular Surgery Daily Progress Patient Name/MRN: Eriberto Chau [id number] Treatment Team: Vascular Surgery- Pager: Attending: Nikhil Samuel MD Today's Date: 06/09/2023 Room/Bed: [id number] Admit Date: 06/03/2023 Code Status: Full Code [...] tablet 1,000 mg 1,000 mg oral Q6H [facility] Sreekanth Armstrong NP 1,000 mg at [...] or family members viewing this note through [employer] programs: This note was written as a [...] Nikhil Samuel MD at 06/21/2023 11:39 AM COT ASSEMBLER ASSEMBLER ASSEMBLER * Dank Garcia - 06/09/2023 11:40 AM [...] treatment team and contact the PT or MANAGER GIFT currently assigned to this patient. If a physical therapy clinician is not assigned to this patient, please call [phone]. 06/09/23 1140 PT Last Visit Session Type [...] treatment team and contact the PT or MANAGER GIFT currently assigned to this patient. If a physical therapy clinician is not assigned to this patient, please call [phone]. Cosigned by Otoniel Dow, PT at 06/09/2023 12:49 PM COT ASSEMBLER ASSEMBLER ASSEMBLER * Joaquín Abarca MD - 06/09/2023 10:54 [...] left groin. 2. No groin hematoma. Dictated by:Sehrri Banerjee MD The radiology attending physician has [...] will recommend genetic testing as an outpatient ASSEMBLER * Mary Mascorro, OT - 06/09/2023 10:43 [...] of Steps 3 Prior Function Level of [place] Independent with ADLs;Independent functional transfers;Independent with ambulation;Independent with homemaking with ambulation Lives With Significant other;Mother (7 kids) Receives Help From Spouse/Significant other;Family (multimedia services manager) ADL ADLS (WDL) X Grooming Grooming: Where [...] being interested in some outpatient therapy for [facility] building-PT notified. Daily Activity - 6 Clicks [...] position in room with call light withinreach. ASSEMBLER * Cristobal Chopra MD - 06/08/2023 8:36 PM CST Vascular Surgery ICU accept note Patient Name/MRN: Eriberto Chau [id number] Treatment Team: Vascular Surgery- Pager: [phone] Attending: Nikhil Samuel MD Today's Date: 06/08/2023 Room/Bed: [id number] Admit Date: 06/03/2023 Code Status: Full Code [...] tablet 1,000 mg 1,000 mg oral Q6H [facility] Sreekanth Armstrong NP 1,000 mg at [...] B aortic dissection who underwent placement of Palmer TBE on 05/02/23 who presents with abdominal [...] Nikhil Samuel MD at 06/21/2023 11:39 AM COT ASSEMBLER ASSEMBLER ASSEMBLER ASSEMBLER * Kathryn Granger MD - 06/08/2023 11:21 AM CST Vascular Surgery Daily Progress Patient Name/MRN: Eriberto Chau [id number] Treatment Team: Vascular Surgery- Pager: [phone] Attending: Nikhil Samuel MD Today's Date: 06/08/2023 Room/Bed: [place] [address]/[id number] Admit Date: 06/03/2023 Code Status: Full Code [...] B aortic dissection who underwent placement of Palmer TBE on 05/02/23 who presents with abdominal [...] removal Kathryn Granger Vascular Surgery Fellow Pager: [phone] Cosigned by Nikhil Samuel MD at 06/08/2023 4:22 PM COT ASSEMBLER ASSEMBLER ASSEMBLER * Priscilla Chacon DPNoel - 06/08/2023 8:29 [...] No Prior Function Prior Function Level of [place]: Independent with ADLs, Independent functional transfers, Independent with ambulation Lives With: Spouse (children) Receives Help From: Spouse/Significant other, Family (signal timer) Driving: Yes 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) Hypertension S/p TEVAR [...] plan with the ICU team and other medical/garden consultant staff, making frequent assessments and decisions [...] Mehul Brooks MD at 06/15/2023 8:28 AM COT ASSEMBLER ASSEMBLER ASSEMBLER * Kathryn Granger MD - 06/07/2023 4:01 PM CST Vascular Surgery Daily Progress Patient Name/MRN: Eriberto Chau [id number] Treatment Team: Vascular Surgery- Pager: [phone] Attending: Nikhil Samuel MD Today's Date: 06/07/2023 Room/Bed: [id number] Admit Date: 06/03/2023 Code Status: Full Code [...] B aortic dissection who underwent placement of Palmer TBE on 05/02/23 who presents with abdominal [...] today Kathryn Granger Vascular Surgery Fellow Pager: [phone] Cosigned by Nikhil Samuel MD at 06/08/2023 4:22 PM COT ASSEMBLER ASSEMBLER ASSEMBLER * Sreekanth Armstrong NP - 06/07/2023 6:19 [...] Susan tylenol, Lopez, Robaxin - Stop Dilaudid FLIGHT OPERATION COORDINATOR - Start PO Oxy q4 Insomnia Nightmares Likely 2/2 frequent interruptions and hx of intense nightmares - Seroquel - Sleep Hygiene - Decrease interruptions 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) Hypertension S/p TEVAR [...] plan with the ICU team and other medical/garden consultant staff, making frequent assessments and decisions [...] Mehul Brooks MD at 06/15/2023 8:25 AM COT ASSEMBLER ASSEMBLER ASSEMBLER ASSEMBLER * Ferny Benny, NP - 06/06/2023 6:30 [...] scheduled Tylenol, Robaxin and Gabapentin - Dilaudid FLIGHT OPERATION COORDINATOR; 0.5mg q10 min CV: # Type B Aortic Dissection s/p Palmer TBE stent graft 05/02 # C/f progression [...] plan with the ICU team and other medical/garden consultant staff, making frequent assessments and decisions [...] Mehul Brooks MD at 06/15/2023 8:24 AM COT ASSEMBLER ASSEMBLER ASSEMBLER * Kathryn Granger MD - 06/06/2023 10:08 AM CST Vascular Surgery Daily Progress Patient Name/MRN: Eriberto Chau [id number] Treatment Team: Vascular Surgery- Pager: [phone] Attending: Nikhil Samuel MD Today's Date: 06/06/2023 Room/Bed: [place] [address]/[id number] Admit Date: 06/03/2023 Code Status: Full Code [...] B aortic dissection who underwent placement of Palmer TBE on 05/02/23 who presents with abdominal [...] >10 Kathryn Granger Vascular Surgery Fellow Pager: [phone] Cosigned by Nikhil Samuel MD at 06/08/2023 4:22 PM COT ASSEMBLER ASSEMBLER ASSEMBLER * Vianey Sheila Tiffanie, NP - 06/06/2023 [...] AM Result Value Ref Range Product code V6273A06 Unit Number [id number] Product Blood Type APOS Dispense Status PRESUMED TRANSFUSED Product code U9231F55 Unit Number [id number] Product Blood Type APOS Dispense Status PRESUMED TRANSFUSED Product code H6276Z95 Unit Number [id number] Product Blood Type APOS Dispense Status CROSSMATCHED Product code T5962P56 Unit Number [id number] Product Blood Type APOS Dispense Status PRESUMED [...] (H) 123 - 168 sec POC Performer [id number] POC Device Number [id number] POCT Activated clotting time, low range Collection Time: 06/05/23 11:49 AM Result Value Ref Range ACT 244 (H) 123 - 168 sec POC Performer [id number] POC Device Number [id number] POCT Activated clotting time, low range Collection Time: 06/05/23 12:29 PM Result Value Ref Range ACT 219 (H) 123 - 168 sec POC Performer [id number] POC Device Number [id number] POCT Activated clotting time, low range Collection Time: 06/05/23 12:42 PM Result Value Ref Range ACT 150 123 - 168 sec POC Performer [id number] POC Device Number [id number] CBC with auto differential Collection Time: 06/05/23 [...] Principal Problem: Dissection of abdominal aorta (CMS/HCC) ([facility]) NEURO: #Acute Pain: - Continue scheduled Tylenol, Robaxin and Gabapentin - Dilaudid FLIGHT OPERATION COORDINATOR; 0.5mg q10 min - Pain goal < 4 CV: #Type B Aortic Dissection s/p Palmer TBE stent graft 05/02 #C/f progression of [...] drain - Add acapella therapy QID per SUPERVISOR BLOOMING MILL - Daily CXR GI: Diet: CLD, ADAT [...] reviewed with fellow and attending Tana Winters [facility] 06/06/2023 Critical Care Performed by: Sheila Winters [...] plan with the ICU team and other medical/garden consultant staff, making frequent assessments and decisions [...] Mehul Brooks MD at 06/15/2023 8:25 AM COT ASSEMBLER ASSEMBLER ASSEMBLER * Benny Isaacs NP - 06/05/2023 6:37 [...] AM Result Value Ref Range Product code K0190R23 Unit Number [id number] Product Blood Type APOS Dispense Status PRESUMED TRANSFUSED Product code T8138H04 Unit Number [id number] Product Blood Type APOS Dispense Status PRESUMED TRANSFUSED Product code Q9956A05 Unit Number [id number] Product Blood Type APOS Dispense Status CROSSMATCHED Product code Z2913Y49 Unit Number [id number] Product Blood Type APOS Dispense Status PRESUMED [...] (H) 123 - 168 sec POC Performer [id number] POC Device Number [id number] POCT Activated clotting time, low range Collection Time: 06/05/23 11:49 AM Result Value Ref Range ACT 244 (H) 123 - 168 sec POC Performer [id number] POC Device Number [id number] POCT Activated clotting time, low range Collection Time: 06/05/23 12:29 PM Result Value Ref Range ACT 219 (H) 123 - 168 sec POC Performer [id number] POC Device Number [id number] POCT Activated clotting time, low range Collection Time: 06/05/23 12:42 PM Result Value Ref Range ACT 150 123 - 168 sec POC Performer [id number] POC Device Number [id number] CBC with auto differential Collection Time: 06/05/23 [...] scheduled Tylenol, Robaxin and Gabapentin - Dilaudid FLIGHT OPERATION COORDINATOR; 0.5mg q10 min CV: # Type B Aortic Dissection s/p Palmer TBE stent graft 05/02 # C/f progression [...] plan with the ICU team and other medical/garden consultant staff, making frequent assessments and decisions [...] Mehul Brooks MD at 06/15/2023 8:24 AM COT ASSEMBLER ASSEMBLER ASSEMBLER * Georgia Rivera PT - 06/05/2023 9:25 AM CST Physical Therapy 06/05/23 0925 General PT Missed Visit Reason Procedure/testing/appointment (scheduled for OR this date) Recommendation/Plan PT Frequency during current admission Monitor status PT - Next Appointment 06/07/23 ASSEMBLER * Heber Randolph MD - 06/05/2023 9:03 AM CST Vascular Surgery Daily Progress Patient Name/MRN: Eriberto Chau [id number] Treatment Team: Vascular Surgery- Pager: [phone] Attending: Alonzo [place] MD Today's Date: 06/05/2023 Room/Bed: [id number] Admit Date: 06/03/2023 Code Status: Full Code [...] B aortic dissection who underwent placement of Palmer TBE on 05/02/23 who presents with abdominal [...] procedure. Heber Randolph MD Vascular Surgery Fellow [phone] (this is a pager, please leave a callback number) Vascular Consults: Vascular Floor/WEATHERIZATION AND HOUSING INSPECTOR: Problem List Cardiac and Vasculature * (Principal) Dissection of abdominal aorta (CMS/HCC) (HCC) - Primary Relevant Orders Insert arterial line (Completed) Case Request Operating Room: TEVAR - Thoracic Endovascular Repair (Completed) Critical Care (Completed) Case Request Operating Room: Thoracic Endovascular Repair - Aortic (Completed) CV Hybrid Room (Default Orderable) For patients or family members viewing this note through [employer] programs: This note was written as a [...] Alonzo [place] MD at 06/06/2023 7:26 AM COT ASSEMBLER ASSEMBLER ASSEMBLER * Sheila Winters NP - 06/05/2023 6:40 AM CSTAssociated Order(s): Critical Care Post-Procedure Diagnose(s): Dissection of abdominal aorta (CMS/HCC) ([facility]) Surgical ICU Daily Progress Team: 8200 AM [...] scheduled Tylenol, Robaxin and Gabapentin - Dilaudid FLIGHT OPERATION COORDINATOR; 0.5mg q10 min - Pain goal < 4 CV: #Type B Aortic Dissection s/p Palmer TBE stent graft 05/02 #C/f progression of [...] 06/05/2023 Critical Care Performed by: Sheila Winters WEATHERIZATION AND HOUSING INSPECTOR Authorized by: Sheila Winters NP CRITICAL CARE: [...] plan with the ICU team and other medical/garden consultant staff, making frequent assessments and decisions [...] Mehul Brooks MD at 06/15/2023 8:25 AM COT ASSEMBLER ASSEMBLER ASSEMBLER ASSEMBLER ASSEMBLER * Benny Isaacs NP - 06/04/2023 6:46 [...] scheduled Tylenol, Robaxin and Gabapentin - Dilaudid FLIGHT OPERATION COORDINATOR; 0.5mg q10 min CV: # Type B Aortic Dissection s/p Palmer TBE stent graft 05/02 # C/f progression [...] plan with the ICU team and other medical/garden consultant staff, making frequent assessments and decisions [...] Mehul Brooks MD at 06/15/2023 8:24 AM COT ASSEMBLER ASSEMBLER ASSEMBLER * Heber Randolph MD - 06/04/2023 5:11 PM CST Vascular Surgery Daily Progress Patient Name/MRN: Eriberto Chau [id number] Treatment Team: Vascular Surgery- Pager: [phone] Attending: Alonzo [place] MD Today's Date: 06/04/2023 Room/Bed: [place] [address]/[id number] Admit Date: 06/03/2023 Code Status: Prior Subjective [...] B aortic dissection who underwent placement of Palmer TBE on 05/02/23 who presents with abdominal [...] care Heber Randolph MD Vascular Surgery Fellow [phone] (this is a pager, please leave a callback number) Vascular Consults: Vascular Floor/WEATHERIZATION AND HOUSING INSPECTOR: Problem List Cardiac and Vasculature * (Principal) Dissection of abdominal aorta (CMS/HCC) (HCC) - Primary Relevant Orders Insert arterial line (Completed) For patients or family members viewing this note through [employer] programs: This note was written as a [...] Alonzo [place] MD at 06/06/2023 7:26 AM COT ASSEMBLER ASSEMBLER ASSEMBLER documented in this encounter H&P Notes * [...] #Post-surgical pain -Home gabapentin -Home robaxin -Dilaudid FLIGHT OPERATION COORDINATOR, transition to PO medications when able ICU Checklist Feeding: NPO DVT ppx: Hold pharmacological ppx until operative plan determined, SCDs Glycemic control: No prior history of diabetes, not indicated at this time Ulcer ppx: None indicated LDA: Right radial a-line, PIV x2 Cosigned by Mehul Brooks MD at 06/15/2023 8:35 AM COT ASSEMBLER ASSEMBLER ASSEMBLER ASSEMBLER documented in this encounter Procedure Notes * [...] procedure as documented. Carline Jerome MD 06/07/2022 ASSEMBLER ASSEMBLER * Sherlyn Alicea MD - 06/04/2023 1:26 AM CSTAssociated Order(s): Arterial Line Insertion Post-Procedure Diagnose(s): Dissection of abdominal aorta (CMS/HCC) (HCC) Arterial Line Insertion Date/Time: 06/04/2023 1:26 AM Performed by: Michael Hamm MD Authorized by: Mehul Brooks MD [place] Protocol: RN Notified of Procedure: yes Informed consent: Risks, benefits, alternatives discussed and patient/technical account representative/guardian agrees and accepts Patient's stated name/ [...] Mehul Brooks MD at 06/15/2023 8:35 AM COT ASSEMBLER ASSEMBLER ASSEMBLER ASSEMBLER documented in this encounter Consult Notes * [...] Amoxicillin MEDICATIONS acetaminophen, 1,000 mg, oral, Q6H [facility] docusate sodium, 100 mg, oral, BID gabapentin, 300 mg, oral, TID methocarbamoL, 750 mg, oral, TID polyethylene glycol, 17 g, oral, BID potassium chloride ER, 40 mEq, oral, Once potassium, sodium phosphates, 2 packet, oral, TID AC QUEtiapine, 50 mg, oral, Nightly senna, 1 tablet, oral, BID sodium chloride 0.9%, 0.5-20 mL, intra-catheter, Q8H [facility] tamsulosin, 0.8 mg, oral, Daily with [...] this as an outpatient. Joaquín Abarca MD ASSEMBLER * TillmanShana Anil, RD - 06/04/2023 3:39 [...] POC -- -- -- < > -- [id number] mL/min/1.73 m2 61 55* 89 -- 85 [...] care, Diet advancement Shana Tillman RD, LD, [facility] [phone] NSS Oncall/Weekend ASSEMBLER * Brynn Lazo MD - 06/03/2023 10:30 PM CST Vascular Surgery Consultation Patient Name/MRN: Eriberto Chau [id number] Treatment Team: Vascular Surgery- Reason for Consult: increase false lumen size, known thoracic dissection Attending: Alonzo [place] MD Today's Date: 06/04/2023 Admitting Service: Vascular Admitting location: [place] [address]/[id number] Admit Date: 06/03/2023 Code Status: Prior CC: [...] steadily rising, with SBPs around 150s over [place] and up to 180s-190s in the last [...] tablet 1,000 mg 1,000 mg oral Q6H [facility] Sherlyn Alicea MD 1,000 mg at [...] surgery will continue to follow. Please call [phone] with vascular consult questions 20/12. Cosigned by Alonzo [place] MD at 06/06/2023 7:25 AM COT ASSEMBLER ASSEMBLER ASSEMBLER documented in this encounter Nursing Notes * Maki, Jessica Fausto, RN - 06/07/2023 3:13 PM CST Lumbar drain removed by MD Jerome via bedside (see MD note). VO to monitor neurovascular, neuromotor, and drain site every hour x4 and to remain on bedrest with HOB flat. Care ongoing. ASSEMBLER ASSEMBLER ASSEMBLER ASSEMBLER * Jessica Gambino RN - 06/06/2023 4:20 [...] Pt denied headache, lightheadedness, vision changes, numbness/tingling. WEATHERIZATION AND HOUSING INSPECTOR Vianey made aware of the situation. Care ongoing. ASSEMBLER ASSEMBLER * Shirley Horan RN - 06/05/2023 4:33 PM CST Pt returned to 5612 from CVOR. Spinal drain in place, draining clear fluid. Assessments as noted inflowsheets. Clevidipine restarted for Systolic 140-160. ASSEMBLER * Shirley Horan RN - 06/05/2023 1:20 [...] and special bed in place as prevention. ASSEMBLER documented in this encounter ED Notes * [...] deficit present. Mental Status: He is alert. [facility] Medical Decision Making Assessment: 33 y.o. [...] with voice recognition software. Occasional wrong-word or '[id number]' substitutions may have occurred due to the [...] as well from prior study. Will ask [facility] surgery to get involved. Have started labetolol for the HTN. By: Tressa Sorensen MD Time: 06/03 2056 Comment: Vascular surgery called back they said they would be down I informed them of patient's blood pressure and also the results of tonight CT abdomen By: Tressa Sorensen MD Time: 06/03 2126 Comment: [facility] surgery at bedside pt's BP is 200 starting esmolol drip aiming for MAP of 70-90 By: Tressa Sorensen MD Time: 06/03 2212 Comment: BP slowly coming down will titrate up esmolol and also adjust pain meds. [facility] plan to admit to CTICU By: [...] resident's note. Nona Herrera MD Resident 06/04/23 1067 Tressa Sorensen MD 06/06/23 1213 ASSEMBLER ASSEMBLER * Sreekanth Thomas RN - 06/03/2023 6:25 PM CST Bed: [facility] Expected date: Expected time: Means of arrival: Comments: Triage Sreekanth Thomas RN 06/03/23 1825 ASSEMBLER * Nicole Hoang RN - 06/03/2023 5:59 [...] chest pain/shortness of breath/urinary problems. GCS 15 ASSEMBLER documented in this encounter Miscellaneous Notes * [...] the patient???s medical record. Sincerely, Tressa Pike [facility] Information Management ASSEMBLER * Plan of Care - Rita Braden [...] Summary: Plan of care discussed with patient. ASSEMBLER * Assessment & Plan Note - Joaquín Abarca MD - 06/11/2023 7:50 AM COT ASSEMBLER Associated Problem(s): Dissection of thoracoabdominal aorta (CMS/HCC) (HCC) Clinically stable. Renal function stable. Blood pressure improved We will recommend genetic testing as an outpatient ASSEMBLER * Assessment & Plan Note - Joaquín Abarca MD - 06/11/2023 7:50 AM COT ASSEMBLER Associated Problem(s): HTN (hypertension) Patient hypertensive. Recommend resuming hydralazine 25 mg 3 times a day. Continue the amlodipine and carvedilol. Follow-up blood pressure. The patient should have follow-up blood pressure when he leaves the hospital as well. ASSEMBLER * Subjective & Objective - Joaquín Abarca MD - 06/11/2023 7:48 AM COT ASSEMBLER Cardiology Daily Progress Note Patient Name: Eriberto [...] stable. Creatinine stable. Potassium stable. Sodium stable. ASSEMBLER * Plan of Care - Leticia Navas [...] Remain free from falls Sleep hygiene Summary: Brine Tank Tender Patient Centered Goal for Treatment: to go home and not come back Agree with patient centered goal: yes ASSEMBLER * Plan of Care - Jill Dunn [...] Ability to cope will improve Outcome: Progressing ASSEMBLER * Plan of Care - Edel Sharp [...] informed about POC, will continue to monitor ASSEMBLER * Assessment & Plan Note - Shannon Bran NP - 06/09/2023 11:53 AM COT ASSEMBLER Associated Problem(s): Dissection of thoracoabdominal aorta (CMS/HCC) (HCC) Presents with abdominal pain and concern for progression of dissection on CT - 06/05/23: OR s/p TEVAR extension and dissection stent placement - BP management per HTN - pain control - Q4 NV checks, Q2 VS - lovenox DVT ppx - He will f/u with Dr. Abarca as outpatient for genetics testing. ASSEMBLER ASSEMBLER ASSEMBLER * Assessment & Plan Note - Shannon Bran NP - 06/09/2023 11:43 AM COT ASSEMBLER Associated Problem(s): HTN (hypertension) Goal systolic BP [...] Coreg increased 06/10. - continue OU status ASSEMBLER ASSEMBLER ASSEMBLER ASSEMBLER ASSEMBLER * Assessment & Plan Note - Joaquín Abarca MD - 06/09/2023 10:54 AM COT ASSEMBLER Associated Problem(s): Dissection of thoracoabdominal aorta (CMS/HCC) (HCC) Clinically stable. Renal function stable. Blood pressure improved We will recommend genetic testing as an outpatient ASSEMBLER * Assessment & Plan Note - Joaquín Abarca MD - 06/09/2023 10:54 AM COT ASSEMBLER Associated Problem(s): HTN (hypertension) Blood pressure well controlled at present. Medicines are being adjusted. Currently on carvedilol and hydralazine. A want to transition to amlodipine 5 mg a day to wean hydralazine, as tolerated, as 3 times a day medication can be difficult long-term ASSEMBLER * Subjective & Objective - Joaquín Abarca MD - 06/09/2023 10:34 AM COT ASSEMBLER Cardiology Daily Progress Note Patient Name: Eriberto [...] legs MEDICATIONS: acetaminophen, 1,000 mg, oral, Q6H SUSNA aspirin, 81 mg, oral, Daily bisacodyL, 10 [...] it. Electronically signed by: Monster Easley M.D. ASSEMBLER * Plan of Care - Nakita Mcbride LCSW - 06/09/2023 9:50 AM COT ASSEMBLER Social Work attempted to follow up with patient regarding employment, financial assistance, and mental health resources. Patient was asleep and did not awaken when Social Work quietly stated his name. Social Work left resources on bedside table. Social Work available should patient have questions regarding resources. No further Social Work needs identified at this time. LIZZ Lott LCSW Please see [facility] Treatment Team for contact information. ASSEMBLER ASSEMBLER * Plan of Ann - Jill Dunn [...] Ability to cope will improve Outcome: Progressing ASSEMBLER * Plan of Ann - Linda Betancourt [...] improve to fullest extent possible Outcome: Progressing ASSEMBLER * Plan of Ann - Alysa Barillas [...] ordered and continue to assess the patient. 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: Medicaid Race: White/ Ethnicity: [...] members Parent Name/Contact Information: meron blankenship (Mother) [phone] Other Family Member Name/Contact Information: Mothers of the the patient's children Participation from Patient's Support System: Active/involved Do you have a Yazidism Preference or Affiliation?: Yes Preference/Affiliation : Judaism Are there any Yazidism Practices that are important to maintain while admitted?: No Do you have Cultural Factors that are important to you?: No (06/08/231438) Strengths, Assets, Liabilities and Stressors: Strengths, Assets, Liabilities, and Stressors Strengths (Must Choose Two): Cultural/spiritual/jainism and community involvement, Interpersonal relationships and supports,i.e., [...] More than three times a week Attends Yazidism Services: More than 4 times per year [...] endorsed anxiety- patient open to resources (06/08/23 6540) Risk to Self and Others: Risk to [...] Harm Another: Patient reports no history (06/08/23 6708) Predictive Model Details 22% Factor Value Calculated [...] B aortic dissection who underwent placement of Palmer TBE on 05/02/23 who presents with abdominal [...] file but verbally nominated meron blankenship (Mother) [phone] as surrogate decision maker in the event [...] for discharge planning needs. Nakita Mcbride LCSW ASSEMBLER * Provider Query - Sreekanth Armstrong NP [...] Ayanna Brewer, RN, BSN, CCDS Clinical Documentation Relationship Mgr [facility] [email or web address] ASSEMBLER * Plan of Care - Roge Tolbert [...] checks, pain control, maintain stable hemodynmics Summary: ASSEMBLER * Plan of Care - Kindra Daniels [...] RCS will continue to monitor and assess. ASSEMBLER * Plan of Care - Nakita Mcbride LCSW - 06/07/2023 10:20 AM COT ASSEMBLER Social Work attempted to speak with patient at bedside regarding disability/FMLA and SDOH assessment due to 30 day readmission. Patient is currently unavailable. Social Work to try again later. LIZZ Lott, YI Please see [facility] Treatment Team for contact information. ASSEMBLER * Plan of Care - Jessica Gambino [...] of falls will improve 06/07/2023748 by Jessica Gambino RN [...] get pt OOBTCH as tolerated. Care ongoing. ASSEMBLER * Plan of Care - Nakita Mcbride LCSW - 06/06/2023 3:43 PM COT ASSEMBLER Social Work attempted to meet with patient/mother regarding consult for FMLA/disability and SDOH assessment due to 22% and 30 day readmission. Patient/mother are currently with a provider and unable to participate in the conversation. Social Work to try again tomorrow. LIZZ Lott, YI Please see [facility] Treatment Team for contact information. ASSEMBLER * Initial Assessments - Marlee Spears RN - 06/06/2023 3:08 PM COT ASSEMBLER CM Initial Assessment Interview Note Information Obtained [...] Managed Medicaid Prescription Coverage: yes Pharmacy: [id number] - [place], [place] - [address] [facility] [address] [id number] - [place], [place] - [address] [facility] [id number] Primary Care Provider: Carl Strickland MD - [...] may not have a qualifying need for correction and that his insurance likely doesn't cover [...] Collaboration with patient, MD, direct care nurse, Student Services Rep, and other members of the health care team to assure needed interventions completed. 2. Return patient to optimal level of self-care post discharge. 3. Film Spooler will follow for Discharge Planning - interventions [...] with the aftercare plan. Marlee Spears RN ASSEMBLER * Plan of Care - Jessica Gambino [...] with call light within reach. Care ongoing. ASSEMBLER * Plan of Care - Dalton Rubio [...] practiced pulm hygiene, pain is under control. ASSEMBLER * Brief Op Note - Rosey Fine MD - 06/05/2023 11:04 AM COT ASSEMBLER Operative Progress Note Surgical Team: Surgeon(s) and Role: * Nikhil Samuel MD - Primary * Shaista Gonsalves MD - Resident - Assisting * Rosey Fien MD - Fellow Anesthesiologist: Ney Alex MD Senior Branch Manager: Marietta Su MD Memory Care Program Resident: Tim Napoles RN; Rafiq Damon RN Scrub: [...] Implant Name Type Inv. Item Serial No. Farmhand Lot No. LRB No. Used Action [employer] CLSR PERCLOSE PROSTYLE SUT-MEDIATD CLOSURE-REPAIR SYS 96267-58 - [id number] VASCULAR DEVICE CLSR PERCLOSE PROSTYLE SUT-MEDIATD CLOSURE-REPAIR SYS 74793-92 [employer] [id number] Left 1 Implanted WILEY [employer] CLSR PERCLOSE PROSTYLE SUT-MEDIATD CLOSURE-REPAIR SYS 23240-27 - [id number] VASCULAR DEVICE CLSR PERCLOSE PROSTYLE SUT-MEDIATD CLOSURE-REPAIR SYS 71940-64 [employer] [id number] Left 1 Implanted [employer] Graft Stent Palmer Tag L20cm Od37mm Thoracic Active Control [id number] - [id number] Stent [employer] Graft Stent Palmer Tag L20cm Od37mm Thoracic Active Control [id number] Wl [employer] N/A 1 Implanted [employer] ZENITH 36MM 20-30MM 16MM 180MM 9 DISSECTION INTRODUCER SHEATH [id number] - [id number] [employer] ZENITH 36MM 20-30MM 16MM 180MM 9 DISSECTION INTRODUCER SHEATH [id number] [employer] [id number] N/A 1 Implanted Blood/Blood Products Transfused: 1U [...] Nikhil Samuel MD at 06/08/2023 4:22 PM COT ASSEMBLER ASSEMBLER ASSEMBLER * Plan of Care - Shirley Horan [...] Goals for the Shift: OR this morning ASSEMBLER * Op Note - Nikhil Samuel MD - 06/05/2023 10:00 AM CST OPERATIVE REPORT SURGEON Nikhil Samuel MD LOG HAUL OPERATOR Rosey Fine MD ANESTHESIA: General PREOPERATIVE [...] places with 2mm lumen. 37 x 200 Palmer C tag was placed to cm to [...] serially dilated our tract up to 22 Greenlandic. Intravascular ultrasound marked out the celiac artery. Aortogram was then performed. A 37 x 200 Palmer C tag was introduced and deployed from [...] I was present for the entire procedure ASSEMBLER * Plan of Care - Eugene Barcenas [...] therapeutic regimen will improve 06/05/2023348 by Eugene Barcenas, RN [...] 06/05/2023348 by Eugene Barcenas RN Outcome: Progressing ASSEMBLER * Plan of Care - Pooja Cameron RN - 06/04/2023 4:56 PM COT ASSEMBLER Problem: Lack of Knowledge: Goal: Ability to [...] increases in labetalol doses and esmolol drip), FLIGHT OPERATION COORDINATOR doses adjusted as well to help better control pain ASSEMBLER * ED Re-evaluation Note - Nigel Santos MD - 06/03/2023 10:43 PM COT ASSEMBLER ED Re-evaluation TRANSITION OF CARE ED Course [...] up esmolol and also adjust pain meds. [facility] plan to admit to CTICU By: Tressa Sorensen MD Time: 06/03 2306 Comment: Has a ready bed for CTICU By: Tressa Sorensen MD No diagnosis found. Nigel Santos MD Resident 06/05/23 1831 ASSEMBLER * Significant Event - Brynn Lazo MD [...] for SBP <120, HR <60 Please call [phone] with any questions or concerns. Bari Phelps MD MPHS ASSEMBLER * ED Procedure Note - Tressa Sorensen [...] continuous cardiac monitored bed. Tressa Sorensen MD 06/03/231 ASSEMBLER * ED Procedure Note - Michael Cortes [...] 13 ECG Michael Cortes MD 06/03/23 1819 ASSEMBLER documented in this encounter Plan of Treatment Pending Results Name Type Priority Associated Diagnoses Date /Time Basic metabolic panel Lab Routine 10/2023 6:09 AM COT ASSEMBLER Magnesium Lab Timed 06/04/2023 11: 59 PM COT ASSEMBLER Phosphorus Lab Timed 06/04/2023 11: 59 PM COT ASSEMBLER Basic metabolic panel Lab Routine 12/2023 12:06 AM COT ASSEMBLER Lactate Lab Routine 06/08/2023 12: 03 AM COT ASSEMBLER Basic metabolic panel Lab Routine 04/2024 5:24 AM COT ASSEMBLER Scheduled Orders Name Type Priority Associated Diagnoses [...] Diagnosis Comments EGFR Routine 06/11/2023 3:21 AM COT ASSEMBLER DIFFERENTIAL AUTO Routine 06/11/2023 3:21 AM COT ASSEMBLER CBC WITH AUTO DIFFERENTIAL Routine 06/11/2023 3:21 AM COT ASSEMBLER TYPE AND SCREEN Timed 06/11/2023 3:21 AM COT ASSEMBLER PHOSPHORUS Routine 06/11/2023 3:21 AM COT ASSEMBLER MAGNESIUM Routine 06/11/2023 3:21 AM COT ASSEMBLER BASIC METABOLIC PANEL Routine 06/11/2023 3:21 AM COT ASSEMBLER XR CHEST 1 VIEW Timed 06/10/2023 7:25 PM COT ASSEMBLER CTA CHEST ABDOMEN PELVIS IP Routine 06/10/2023 8:33 AM COT ASSEMBLER PEP THERAPY Routine 06/10/2023 8:00 AM COT ASSEMBLER EGFR Routine 06/10/2023 5:24 AM COT ASSEMBLER DIFFERENTIAL AUTO Routine 06/10/2023 5:24 AM COT ASSEMBLER CBC WITH AUTO DIFFERENTIAL Routine 06/10/2023 5:24 AM COT ASSEMBLER PHOSPHORUS Routine 06/10/2023 5:24 AM COT ASSEMBLER MAGNESIUM Routine 06/10/2023 5:24 AM COT ASSEMBLER BASIC METABOLIC PANEL Routine 06/10/2023 5:24 AM COT ASSEMBLER XR CHEST 1 VIEW Timed 06/09/2023 6:36 PM COT ASSEMBLER PEP THERAPY Routine 06/09/2023 6:00 PM COT ASSEMBLER PEP THERAPY Routine 06/09/2023 1:00 PM COT ASSEMBLER PEP THERAPY Routine 06/09/2023 8:00 AM COT ASSEMBLER EGFR Timed 06/08/2023 8:53 PM COT ASSEMBLER CBC WITHOUT DIFFERENTIAL Timed 06/08/2023 8:53 PM COT ASSEMBLER PHOSPHORUS Routine 06/08/2023 8:53 PM COT ASSEMBLER MAGNESIUM Routine 06/08/2023 8:53 PM COT ASSEMBLER BASIC METABOLIC PANEL Timed 06/08/2023 8:53 PM COT ASSEMBLER XR CHEST 1 VIEW IP Routine 06/08/2023 7:33 PM COT ASSEMBLER PEP THERAPY Routine 06/08/2023 6:00 PM COT ASSEMBLER PEP THERAPY Routine 06/08/2023 4:43 PM COT ASSEMBLER PEP THERAPY Routine 06/08/2023 4:43 PM COT ASSEMBLER PEP THERAPY Routine 06/08/2023 4:43 PM COT ASSEMBLER CRITICAL CARE Routine 06/08/2023 7:32 AM COT ASSEMBLER Dissection of abdominal aorta (CMS/HCC) (HCC) LACTATE Routine 06/08/2023 12:03 AM COT ASSEMBLER EGFR Routine 06/08/2023 12:03 AM COT ASSEMBLER CBC WITHOUT DIFFERENTIAL Routine 06/08/2023 12:03 AM COT ASSEMBLER TYPE AND SCREEN Timed 06/08/2023 12:03 AM COT ASSEMBLER PHOSPHORUS Routine 06/08/2023 12:03 AM COT ASSEMBLER MAGNESIUM Routine 06/08/2023 12:03 AM COT ASSEMBLER BASIC METABOLIC PANEL Routine 06/08/2023 12:03 AM COT ASSEMBLER XR CHEST 1 VIEW IP Routine 06/07/2023 9:36 PM COT ASSEMBLER CRITICAL CARE Routine 06/07/2023 7:53 PM COT ASSEMBLER Dissection of thoracoabdominal aorta (CMS/HCC) (HCC) US LOWER EXTREMITY LEFT LIMITED Timed 06/07/2023 2:29 PM COT ASSEMBLER CRITICAL CARE Routine 06/07/2023 6:19 AM COT ASSEMBLER Dissection of abdominal aorta (CMS/HCC) (HCC) EGFR Routine 06/07/2023 12:11 AM COT ASSEMBLER CBC WITHOUT DIFFERENTIAL Routine 06/07/2023 12:11 AM COT ASSEMBLER PHOSPHORUS Routine 06/07/2023 12:11 AM COT ASSEMBLER MAGNESIUM Routine 06/07/2023 12:11 AM COT ASSEMBLER BASIC METABOLIC PANEL Routine 06/07/2023 12:11 AM COT ASSEMBLER XR CHEST 1 VIEW IP Routine 06/06/2023 7:40 PM COT ASSEMBLER CRITICAL CARE Routine 06/06/2023 6:30 PM COT ASSEMBLER Dissection of abdominal aorta (CMS/HCC) (HCC) EGFR Timed 06/06/2023 8:14 AM COT ASSEMBLER CBC WITHOUT DIFFERENTIAL Timed 06/06/2023 8:14 AM COT ASSEMBLER BASIC METABOLIC PANEL Timed 06/06/2023 8:14 AM COT ASSEMBLER CRITICAL CARE Routine 06/06/2023 7:00 AM COT ASSEMBLER Dissection of abdominal aorta (CMS/HCC) (HCC) EGFR Routine 06/06/2023 12:06 AM COT ASSEMBLER CBC WITHOUT DIFFERENTIAL Timed 06/06/2023 12:06 AM COT ASSEMBLER PHOSPHORUS Routine 06/06/2023 12:06 AM COT ASSEMBLER MAGNESIUM Routine 06/06/2023 12:06 AM COT ASSEMBLER BASIC METABOLIC PANEL Routine 06/06/2023 12:06 AM COT ASSEMBLER XR CHEST 1 VIEW Timed 06/05/2023 7:37 PM COT ASSEMBLER CRITICAL CARE Routine 06/05/2023 6:37 PM COT ASSEMBLER Dissection of abdominal aorta (CMS/HCC) (HCC) APTT STAT 06/05/2023 2:53 PM COT ASSEMBLER PROTIME-INR STAT 06/05/2023 2:53 PM COT ASSEMBLER EGFR STAT 06/05/2023 1:34 PM COT ASSEMBLER DIFFERENTIAL AUTO STAT 06/05/2023 1:34 PM COT ASSEMBLER CBC WITH AUTO DIFFERENTIAL STAT 06/05/2023 1:34 PM COT ASSEMBLER PHOSPHORUS STAT 06/05/2023 1:34 PM COT ASSEMBLER MAGNESIUM STAT 06/05/2023 1:34 PM COT ASSEMBLER BASIC METABOLIC PANEL STAT 06/05/2023 1:34 PM COT ASSEMBLER CV HYBRID ROOM (DEFAULT ORDERABLE) Routine 06/05/2023 1:15 PM COT ASSEMBLER Dissection of abdominal aorta (CMS/HCC) (HCC) POCT ACTIVATED CLOTTING TIME, LOW RANGE Routine 06/05/2023 12:42 PM COT ASSEMBLER POCT ACTIVATED CLOTTING TIME, LOW RANGE Routine 06/05/2023 12:29 PM COT ASSEMBLER POCT ACTIVATED CLOTTING TIME, LOW RANGE Routine 06/05/2023 11:49 AM COT ASSEMBLER TRANSFUSE RED BLOOD CELLS Routine 06/05/2023 11:36 AM COT ASSEMBLER POCT ACTIVATED CLOTTING TIME, LOW RANGE Routine 06/05/2023 11:27 AM COT ASSEMBLER POC BLOOD GAS AND CHEMISTRIES, ARTERIAL Routine 06/05/2023 11:19 AM COT ASSEMBLER TRANSFUSE RED BLOOD CELLS Timed 06/05/2023 9:16 AM COT ASSEMBLER TRANSFUSE RED BLOOD CELLS Timed 06/05/2023 8:21 AM COT ASSEMBLER PREPARE RBC Timed 06/05/2023 7:54 AM COT ASSEMBLER CRITICAL CARE Routine 06/05/2023 6:40 AM COT ASSEMBLER Dissection of abdominal aorta (CMS/HCC) (HCC) EGFR Timed 06/05/2023 5:27 AM COT ASSEMBLER LACTATE, WHOLE BLOOD Timed 06/05/2023 5:27 AM COT ASSEMBLER CBC WITHOUT DIFFERENTIAL Timed 06/05/2023 5:27 AM COT ASSEMBLER TRIGLYCERIDES Timed 06/05/2023 5:27 AM COT ASSEMBLER PHOSPHORUS Routine 06/05/2023 5:27 AM COT ASSEMBLER MAGNESIUM Routine 06/05/2023 5:27 AM COT ASSEMBLER BASIC METABOLIC PANEL Timed 06/05/2023 5:27 AM COT ASSEMBLER EGFR Timed 06/04/2023 11:59 PM COT ASSEMBLER LACTATE, WHOLE BLOOD Timed 06/04/2023 11:59 PM COT ASSEMBLER CBC WITHOUT DIFFERENTIAL Timed 06/04/2023 11:59 PM COT ASSEMBLER PHOSPHORUS Timed 06/04/2023 11:59 PM COT ASSEMBLER MAGNESIUM Timed 06/04/2023 11:59 PM COT ASSEMBLER BASIC METABOLIC PANEL Timed 06/04/2023 11:59 PM COT ASSEMBLER XR CHEST 1 VIEW IP Routine 06/04/2023 8:53 PM COT ASSEMBLER CRITICAL CARE Routine 06/04/2023 6:46 PM COT ASSEMBLER Dissection of abdominal aorta (CMS/HCC) (HCC) EGFR Timed 06/04/2023 5:33 PM COT ASSEMBLER LACTATE, WHOLE BLOOD Timed 06/04/2023 5:33 PM COT ASSEMBLER CBC WITHOUT DIFFERENTIAL Timed 06/04/2023 5:33 PM COT ASSEMBLER BASIC METABOLIC PANEL Timed 06/04/2023 5:33 PM COT ASSEMBLER US DOPPLER RENAL ARTERY LIMITED Critical/Life- Threatening 06/04/2023 12:27 PM COT ASSEMBLER EGFR Timed 06/04/2023 11:37 AM COT ASSEMBLER LACTATE, WHOLE BLOOD Timed 06/04/2023 11:37 AM COT ASSEMBLER PROTIME-INR Timed 06/04/2023 11:37 AM COT ASSEMBLER CBC WITHOUT DIFFERENTIAL Timed 06/04/2023 11:37 AM COT ASSEMBLER BASIC METABOLIC PANEL Timed 06/04/2023 11:37 AM COT ASSEMBLER EGFR Routine 06/04/2023 6:09 AM COT ASSEMBLER LACTATE, WHOLE BLOOD Timed 06/04/2023 6:09 AM COT ASSEMBLER CBC WITHOUT DIFFERENTIAL Timed 06/04/2023 6:09 AM COT ASSEMBLER PHOSPHORUS Routine 06/04/2023 6:09 AM COT ASSEMBLER MAGNESIUM Routine 06/04/2023 6:09 AM COT ASSEMBLER BASIC METABOLIC PANEL Routine 06/04/2023 6:09 AM COT ASSEMBLER BLOOD GAS, ARTERIAL STAT 06/04/2023 2:33 AM COT ASSEMBLER APTT STAT 06/04/2023 1:54 AM COT ASSEMBLER PROTIME-INR STAT 06/04/2023 1:54 AM COT ASSEMBLER TYPE AND SCREEN STAT 06/04/2023 1:54 AM COT ASSEMBLER [place] ARTL CATHJ/CANNULJ MNTR/TRANSFUSION SPX PRQ Routine 06/04/2023 1:26 AM COT ASSEMBLER Dissection of abdominal aorta (CMS/HCC) (HCC) LACTATE, WHOLE BLOOD Timed 06/04/2023 1:00 AM COT ASSEMBLER EGFR STAT 06/04/2023 12:42 AM COT ASSEMBLER CALCIUM, IONIZED STAT 06/04/2023 12:42 AM COT ASSEMBLER CBC WITHOUT DIFFERENTIAL STAT 06/04/2023 12:42 AM COT ASSEMBLER PHOSPHORUS STAT 06/04/2023 12:42 AM COT ASSEMBLER MAGNESIUM STAT 06/04/2023 12:42 AM COT ASSEMBLER BASIC METABOLIC PANEL STAT 06/04/2023 12:42 AM COT ASSEMBLER [place] CRITICAL CARE ILL/INJURED PATIENT INIT 30-74 MIN Routine 06/03/2023 10:14 PM COT ASSEMBLER TROPONIN I HIGH-SENSITIVITY 4-HOUR Timed 06/03/2023 10:07 PM COT ASSEMBLER LACTATE STAT 06/03/2023 10:07 PM COT ASSEMBLER URINALYSIS AND REFLEX TO MICROSCOPIC STAT 06/03/2023 10:07 PM COT ASSEMBLER URINALYSIS, MICROSCOPIC ONLY STAT 06/03/2023 10:07 PM COT ASSEMBLER TROPONIN I HIGH-SENSITIVITY 2-HOUR Timed 06/03/2023 8:21 PM COT ASSEMBLER CTA CHEST ABDOMEN PELVIS ED 06/03/2023 7:19 PM COT ASSEMBLER POCUS RETROPERITONEAL (AAA OR RENAL) 06/03/2023 6:53 PM COT ASSEMBLER POCT CREATININE - DEVICE Routine 06/03/2023 6:36 PM COT ASSEMBLER TROPONIN I HIGH-SENSITIVITY SERIES (BASELINE, 2HR, 4HR, 6HR) STAT 06/03/2023 6:30 PM COT ASSEMBLER EGFR STAT 06/03/2023 6:30 PM COT ASSEMBLER DIFFERENTIAL AUTO STAT 06/03/2023 6:30 PM COT ASSEMBLER CBC WITH AUTO DIFFERENTIAL STAT 06/03/2023 6:30 PM COT ASSEMBLER LIPASE STAT 06/03/2023 6:30 PM COT ASSEMBLER COMPREHENSIVE METABOLIC PANEL STAT 06/03/2023 6:30 PM COT ASSEMBLER ECG 12-LEAD STAT 06/03/2023 6:18 PM COT ASSEMBLER documented in this encounter Results * eGFR (06/11/2023 3:21 AM COT ASSEMBLER) [facility] eGFR >90 >=60 mL/min/1. 73 m2 [facility] Comment: Interpretive Data Reference Interval Normal [...] last reviewed 2021. Blood 06/11/2023 3:21 AM COT ASSEMBLER 06/11/2023 3:32 AM COT ASSEMBLER us Nikhil Samuel MD LAB BLOOD ORDERABLES Sally zhang Result [facility] Department [place] [address] * (ABNORMAL) Differential, auto (06/11/2023 3:21 AM COT ASSEMBLER) Neutrophil abs 5.4 1.5 - 6.5 K/cumm [facility] Imm gran abs 0.1 0.0 - 0.1 K/cumm [facility] Lymphocyte abs 2.1 0.8 - 3.3 K/cumm [facility] Monocyte abs 1.1(H) 0.2 - 0.8 K/cumm [facility] Eosinophil abs 0.1 0.0 - 0.5 K/cumm [facility] Basophil abs 0.1 0.0 - 0.1 K/cumm [facility] Neutrophil pct 61.3 % [facility] Comment: Interpretive Data Percent cell count reference ranges are not reported, since discordance with absolute values may lead to misinterpretation of CBC data. Current Interpretive Data was last revised on 2017. Imm gran pct 0.8 % [facility] Comment: Interpretive Data Percent cell count reference ranges are not reported, since discordance with absolute values may lead to misinterpretation of CBC data. Current Interpretive Data was last revised on 2017. Lymphocyte pct 23.5 % [facility] Comment: Interpretive Data Percent cell count reference ranges are not reported, since discordance with absolute values may lead to misinterpretation of CBC data. Current Interpretive Data was last revised on 2017. Monocyte pct 13.0 % [facility] Comment: Interpretive Data Percent cell count reference ranges are not reported, since discordance with absolute values may lead to misinterpretation of CBC data. Current Interpretive Data was last revised on 2017. Eosinophil pct 0.8 % [facility] Comment: Interpretive Data Percent cell count reference ranges are not reported, since discordance with absolute values may lead to misinterpretation of CBC data. Current Interpretive Data was last revised on 2017. Basophil pct 0.6 % [facility] Comment: Interpretive Data Percent cell count reference ranges are not reported, since discordance with absolute values may lead to misinterpretation of CBC data. Current Interpretive Data was last revised on 2017. Blood 06/11/2023 3:21 AM COT ASSEMBLER 06/11/2023 3:32 AM COT ASSEMBLER us Nikhil Samuel MD LAB BLOOD ORDERABLES Sally l Result [facility] Department of Laboratories [place], [place] [id number] * Basic metabolic panel (06/11/2023 3:21 AM COT ASSEMBLER) Sodium 143 135 - 145 mmol/L [facility] Potassium, pl 3.8 3.3 - 4.9 mmol/L [facility] Chloride 107 97 - 110 mmol/L [facility] CO2 23 22 - 32 mmol/L [facility] Anion gap 13 2 - 15 mmol/L [facility] BUN 12 6 - 25 mg/dL [facility] Creatinine 0.80 0.80 - 1.30 mg/dL [facility] Glucose 107 70 - 199 mg/dL [facility] Comment: Interpretive Data Fasting glucose >/= 126 [...] Calcium 9.1 8.5 - 10.3 mg/dL [facility] Blood 06/11/2023 3:21 AM COT ASSEMBLER 06/11/2023 3:32 AM COT ASSEMBLER us Nikhil Samuel MD LAB BLOOD ORDERABLES Sally zhang Result [facility] Department [place] [address] * (ABNORMAL) CBC with auto differential (06/11/2023 3:21 AM COT ASSEMBLER) WBC 8.7 3.8 - 9.9 K/cumm [facility] Hgb 10.2(L) 13.0 - 17.5 g/dL [facility] Hct 32.6(L) 38.9 - 50.3 % [facility] Plt 334 150 - 400 K/cumm [facility] MPV 9.1 9.1 - 12.3 fL [facility] RBC 3.63(L) 4.30 - 5.80 M/cumm [facility] MCV 89.8 81.3 - 96.4 fL [facility] MCH 28.1 27.1 - 33.3 pg [facility] MCHC 31.3(L) 32.3 - 35.7 g/dL [facility] RDW CV 13.7 11.1 - 14.9 % [facility] RDW SD 44.8 35.7 - 48.1 fL [facility] NRBC abs 0.00 0.00 - 0.01 K/cumm [facility] Blood 06/11/2023 3:21 AM COT ASSEMBLER 06/11/2023 3:32 AM COT ASSEMBLER Nikhil Samuel MD LAB BLOOD ORDERABLES Sally l Result [facility] [employer] [place] [address] * (ABNORMAL) Phosphorus (06/11/2023 3:21 AM COT ASSEMBLER) Phosphorus, pl 4.7(H) 2.3 - 4.5 mg/dL [facility] Blood 06/11/2023 3:21 AM COT ASSEMBLER 06/11/2023 3:32 AM COT ASSEMBLER Result [facility] Sreekanth Armstrong NP LAB BLOOD ORDERABLES Sally l Result Performing Organization Address [facility] Co de Phone Number [facility] [employer] [place] [address] * Magnesium (06/11/2023 3:21 AM COT ASSEMBLER) Magnesium 2.3 1.4 - 2.5 mg/dL [facility] Blood 06/11/2023 3:21 AM COT ASSEMBLER 06/11/2023 3:32 AM COT ASSEMBLER Result [facility] Sreekanth Armstrong NP LAB BLOOD ORDERABLES Sally l Result Performing Organization Address City/[facility] Co de Phone Number [facility] [place] [address] * Type and screen (06/11/2023 3:21 AM COT ASSEMBLER) ABO Rh A Positive Ellen, indirect Negative [facility] Blood 06/11/2023 3:21 AM COT ASSEMBLER 06/11/2023 3:47 AM COT ASSEMBLER Narrative JAIRON COLON - 06/11/2023 4:36 AM COT ASSEMBLER Has the patient had Daratumumab or Isatuximab in the past 6 months?->Unknown Sreekanth Armstrong NP LAB BLOOD BANK TEST ORDER CAROLINE Final Result [facility] Department [place] [address] * XR Chest 1 View (06/10/2023 7:25 PM COT ASSEMBLER) Anatomical Region Laterality Modality Body, Chest N/A Computed Radiogr aphy 06/10/2023 7:29 PM COT ASSEMBLER Impressions 06/10/2023 7:29 PM COT ASSEMBLER The current study is compared with the prior radiograph dated ??06/09/2023. 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 ??The heart is mildly enlarged. ??There is no pneumothorax.. There is no mass or lymphadenopathy no pleural effusions Electronically signed by: Floridalma Oliva M.D. Narrative 06/10/2023 7:29 PM COT ASSEMBLER EXAMINATION: 1 view chest radiograph Procedure Note [...] signed by: Floridalma Oliva M.D. Sreekanth Armstrong WEATHERIZATION AND HOUSING INSPECTOR IMG XR PROCEDURES Final R esult * CTA Chest Abdomen Pelvis (06/10/2023 8:33 AM COT ASSEMBLER) Anatomical Region Laterality Modality Body N/A Computed Tomogra phy 06/10/2023 11:4 0 AM COT ASSEMBLER Impressions 06/10/2023 11:53 AM COT ASSEMBLER Interval expected postoperative changes of inferior extension [...] Bassam Dykes M.D. Narrative 06/10/2023 11:53 AM COT ASSEMBLER EXAMINATION: ??CT ANGIOGRAPHY OF THE CHEST, ABDOMEN [...] is 45 mm AP x 47 mm [id number], previously 46 x 46 mm when measured similarly on 06/03/2023. ??The maximum diameter of the graft is 33 mm AP x 34 mm [id number], this is at the distal aspect of [...] is 45 mm AP x 47 mm [id number], previously 46 x 46 mm when measured similarly on 06/03/2023. The maximum diameter of the graft is 33 mm AP x 34 mm [id number], this is at the distal aspect of [...] (ABNORMAL) Basic metabolic panel (06/10/2023 5:24 AM COT ASSEMBLER) Sodium 141 135 - 145 mmol/L [facility] Potassium, pl 3.5 3.3 - 4.9 mmol/L [facility] Chloride 104 97 - 110 mmol/L [facility] CO2 26 22 - 32 mmol/L [facility] Anion gap 11 2 - 15 mmol/L [facility] BUN 11 6 - 25 mg/dL [facility] Creatinine 0.77(L) 0.80 - 1.30 mg/dL [facility] Glucose 108 70 - 199 mg/dL [facility] Comment: Interpretive Data Fasting glucose >/= 126 [...] 2022. Calcium 9.2 8.5 - 10.3 mg/dL [facility] Blood 06/10/2023 5:24 AM COT ASSEMBLER 06/10/2023 5:45 AM COT ASSEMBLER us Nikhil Samuel MD LAB BLOOD ORDERABLES Sally zhang Result [facility] Department [place] [address] * eGFR (06/10/2023 5:24 AM COT ASSEMBLER) eGFR >90 >=60 mL/min/1. 73 m2 [facility] Comment: Interpretive Data Reference Interval Normal [...] last reviewed 2021. Blood 06/10/2023 5:24 AM COT ASSEMBLER 06/10/2023 5:45 AM COT ASSEMBLER us Nikhil Samuel MD LAB BLOOD ORDERABLES Sally zhang Result [facility] Department [place] [address] * (ABNORMAL) Differential, auto (06/10/2023 5:24 AM COT ASSEMBLER) Neutrophil abs 5.8 1.5 - 6.5 K/cumm [facility] Imm gran abs 0.1 0.0 - 0.1 K/cumm [facility] Lymphocyte abs 2.2 0.8 - 3.3 K/cumm [facility] Monocyte abs 1.3(H) 0.2 - 0.8 K/cumm [facility] Eosinophil abs 0.1 0.0 - 0.5 K/cumm [facility] Basophil abs 0.0 0.0 - 0.1 K/cumm [facility] Neutrophil pct 60.9 % [facility] Comment: Interpretive Data Percent cell count reference ranges are not reported, since discordance with absolute values may lead to misinterpretation of CBC data. Current Interpretive Data was last revised on 2017. Imm gran pct 1.1 % [facility] Comment: Interpretive Data Percent cell count reference ranges are not reported, since discordance with absolute values may lead to misinterpretation of CBC data. Current Interpretive Data was last revised on 2017. Lymphocyte pct 23.0 % [facility] Comment: Interpretive Data Percent cell count reference ranges are not reported, since discordance with absolute values may lead to misinterpretation of CBC data. Current Interpretive Data was last revised on 2017. Monocyte pct 13.7 % [facility] Comment: Interpretive Data Percent cell count reference ranges are not reported, since discordance with absolute values may lead to misinterpretation of CBC data. Current Interpretive Data was last revised on 2017. Eosinophil pct 0.9 % [facility] Comment: Interpretive Data Percent cell count reference ranges are not reported, since discordance with absolute values may lead to misinterpretation of CBC data. Current Interpretive Data was last revised on 2017. Basophil pct 0.4 % [facility] Comment: Interpretive Data Percent cell count reference ranges are not reported, since discordance with absolute values may lead to misinterpretation of CBC data. Current Interpretive Data was last revised on 2017. Blood 06/10/2023 5:24 AM COT ASSEMBLER 06/10/2023 5:45 AM COT ASSEMBLER us Nikhil Samuel MD LAB BLOOD ORDERABLES Sally l Result [facility] Department [place] [address] * (ABNORMAL) CBC with auto differential (06/10/2023 5:24 AM COT ASSEMBLER) WBC 9.5 3.8 - 9.9 K/cumm [facility] Hgb 10.7(L) 13.0 - 17.5 g/dL [facility] Hct 32.8(L) 38.9 - 50.3 % [facility] Plt 333 150 - 400 K/cumm [facility] MPV 9.0(L) 9.1 - 12.3 fL [facility] RBC 3.67(L) 4.30 - 5.80 M/cumm [facility] MCV 89.4 81.3 - 96.4 fL [facility] MCH 29.2 27.1 - 33.3 pg [facility] MCHC 32.6 32.3 - 35.7 g/dL [facility] RDW CV 13.7 11.1 - 14.9 % [facility] RDW SD 45.1 35.7 - 48.1 fL [facility] NRBC abs 0.00 0.00 - 0.01 K/cumm [facility] Blood 06/10/2023 5:24 AM COT ASSEMBLER 06/10/2023 5:45 AM COT ASSEMBLER us Nikhil Samuel MD LAB BLOOD ORDERABLES Sally l Result Performing Organization Address City/State/[facility] Co de Phone Number [facility] [place] [address] * Phosphorus (06/10/2023 5:24 AM COT ASSEMBLER) Phosphorus, pl 3.5 2.3 - 4.5 mg/dL [facility] Blood 06/10/2023 5:24 AM COT ASSEMBLER 06/10/2023 5:45 AM COT ASSEMBLER us Sreekanth Armstrong WEATHERIZATION AND HOUSING INSPECTOR LAB BLOOD ORDERABLES Sally l Result Performing Organization Address City/[facility] Co de Phone Number [facility] [employer] [place] [address] * Magnesium (06/10/2023 5:24 AM COT ASSEMBLER) Magnesium 2.4 1.4 - 2.5 mg/dL [facility] Blood 06/10/2023 5:24 AM COT ASSEMBLER 06/10/2023 5:45 AM COT ASSEMBLER Sreekanth Armstrong WEATHERIZATION AND HOUSING INSPECTOR LAB BLOOD ORDERABLES Sally l Result Performing Organization Address City/[facility] Co de Phone Number [facility] [employer] [place] [address] * XR Chest 1 View (06/09/2023 6:36 PM COT ASSEMBLER) Anatomical Region Laterality Modality Body, Chest N/A Computed Radiogr aphy 06/10/2023 8:59 AM COT ASSEMBLER Impressions 06/10/2023 9:23 AM COT ASSEMBLER Again noted is changes of thoracic and [...] James Alvarado M.D. Narrative 06/10/2023 9:23 AM COT ASSEMBLER EXAMINATION: 1 view chest radiograph Comparison to [...] R esult * eGFR (06/08/2023 8:53 PM COT ASSEMBLER) [facility] eGFR >90 >=60 mL/min/1. 73 m2 JAIRON [facility] Comment: Interpretive Data Reference Interval Normal [...] last reviewed 2021. Blood 06/08/2023 8:53 PM COT ASSEMBLER 06/08/2023 9:33 PM COT ASSEMBLER Sreekanth Armstrong WEATHERIZATION AND HOUSING INSPECTOR LAB BLOOD ORDERABLES Sally l Result Performing Organization Address City/[facility]/ZIP Co de Phone Number [facility] Department [place] [employer] [place] [address] * (ABNORMAL) Phosphorus (06/08/2023 8:53 PM COT ASSEMBLER) Phosphorus, pl 2.1(L) 2.3 - 4.5 mg/dL [facility] Blood 06/08/2023 8:53 PM COT ASSEMBLER 06/08/2023 9:33 PM COT ASSEMBLER Sreekanth Armstrong WEATHERIZATION AND HOUSING INSPECTOR LAB BLOOD ORDERABLES Sally l Result [facility] Department [place] [address] * Magnesium (06/08/2023 8:53 PM COT ASSEMBLER) Magnesium 2.3 1.4 - 2.5 mg/dL [facility] Blood 06/08/2023 8:53 PM COT ASSEMBLER 06/08/2023 9:33 PM COT ASSEMBLER Sreekanth Armstrong WEATHERIZATION AND HOUSING INSPECTOR LAB BLOOD ORDERABLES Sally l Result Performing Organization Address [facility] Co de Phone Number [facility] Department [place] [address] * Basic metabolic panel (06/08/2023 8:53 PM COT ASSEMBLER) [facility] Sodium 136 135 - 145 mmol/L [facility] Potassium, pl 3.7 3.3 - 4.9 mmol/L [facility] Chloride 101 97 - 110 mmol/L [facility] CO2 26 22 - 32 mmol/L [facility] Anion gap 9 2 - 15 mmol/L [facility] BUN 17 6 - 25 mg/dL [facility] Creatinine 1.01 0.80 - 1.30 mg/dL [facility] Glucose 164 70 - 199 mg/dL [facility] Comment: Interpretive Data Fasting glucose >/= 126 [...] Calcium 8.6 8.5 - 10.3 mg/dL [facility] Blood 06/08/2023 8:53 PM COT ASSEMBLER 06/08/2023 9:33 PM COT ASSEMBLER Sreekanth Armstrong NP LAB BLOOD ORDERABLES Sally l Result Performing Organization Address [facility] Co de Phone Number [facility] Department [place] [address] * (ABNORMAL) CBC without differential (06/08/2023 8:53 PM COT ASSEMBLER) [facility] WBC 10.9(H) 3.8 - 9.9 K/cumm [facility] Hgb 9.6(L) 13.0 - 17.5 g/dL [facility] Hct 30.9(L) 38.9 - 50.3 % [facility] Plt 232 150 - 400 K/cumm [facility] MPV 9.4 9.1 - 12.3 fL [facility] RBC 3.42(L) 4.30 - 5.80 M/cumm [facility] MCV 90.4 81.3 - 96.4 fL [facility] MCH 28.1 27.1 - 33.3 pg [facility] MCHC 31.1(L) 32.3 - 35.7 g/dL [facility] RDW CV 14.2 11.1 - 14.9 % [facility] RDW SD 46.9 35.7 - 48.1 fL [facility] NRBC abs 0.00 0.00 - 0.01 K/cumm [facility] Blood 06/08/2023 8:53 PM COT ASSEMBLER 06/08/2023 9:34 PM COT ASSEMBLER Sreekanth Armstrong WEATHERIZATION AND HOUSING INSPECTOR LAB BLOOD ORDERABLES Sally zhang Result [facility] Department [place] [address] * XR Chest 1 View (06/08/2023 7:33 PM COT ASSEMBLER) Anatomical Region Laterality Modality Body, Chest N/A Digital Radiogra phy 06/09/2023 8:50 AM COT ASSEMBLER Impressions 06/09/2023 2:10 PM COT ASSEMBLER The current study is compared with the [...] Marlee Jimenez M.D. Narrative 06/09/2023 2:10 PM COT ASSEMBLER EXAMINATION: 1 view chest radiograph Procedure Note [...] esult * Critical Care (06/08/2023 7:32 AM COT ASSEMBLER) Narrative Mehul Brooks MD - 06/08/2023 7:32 AM COT ASSEMBLER Sreekanth Armstrong NP ? 06/08/2023 11:46 AM [...] plan with the patient's team and other medical/garden consultant staff. This time was in addition [...] Final Result * eGFR (06/08/2023 12:03 AM COT ASSEMBLER) eGFR >90 >=60 mL/min/1. 73 m2 JAIRON [...] reviewed 2021. Blood 06/08/2023 12:0 3 AM COT ASSEMBLER 06/08/2023 12:26 AM COT ASSEMBLER us Sheila Winters WEATHERIZATION AND HOUSING INSPECTOR LAB BLOOD ORDERABLES F inal Result [facility] [place] [address] * (ABNORMAL) Lactate (06/08/2023 12:03 AM COT ASSEMBLER) Pathologist [facility] Lactate 0.6(L) 0.7 - 2.0 mmol/L [facility] Blood 06/08/2023 12:0 3 AM COT ASSEMBLER 06/08/2023 12:27 AM COT ASSEMBLER us Nikhil Samuel MD LAB BLOOD ORDERABLES Sally l Result Performing Organization Address City/[facility]/ZIP Co de Phone Number [facility] Department [place] [address] * (ABNORMAL) Basic metabolic panel (06/08/2023 12:03 AM COT ASSEMBLER) [facility] Sodium 135 135 - 145 mmol/L [facility] Potassium, pl 3.5 3.3 - 4.9 mmol/L [facility] Chloride 100 97 - 110 mmol/L [facility] CO2 27 22 - 32 mmol/L [facility] Anion gap 8 2 - 15 mmol/L [facility] BUN 16 6 - 25 mg/dL [facility] Creatinine 0.91 0.80 - 1.30 mg/dL [facility] Glucose 108 70 - 199 mg/dL [facility] Comment: Interpretive Data Fasting glucose >/= 126 [...] Calcium 8.4(L) 8.5 - 10.3 mg/dL [facility] Blood 06/08/2023 12:0 3 AM COT ASSEMBLER 06/08/2023 12:26 AM COT ASSEMBLER us Sheila Winters NP LAB BLOOD ORDERABLES F inal Result Performing Organization Address [facility]/ZIP Co de Phone Number [facility] Department [place] [address] * (ABNORMAL) CBC without differential (06/08/2023 12:03 AM COT ASSEMBLER) WBC 11.8(H) 3.8 - 9.9 K/cumm [facility] Hgb 10.9(L) 13.0 - 17.5 g/dL [facility] Hct 31.8(L) 38.9 - 50.3 % [facility] Plt 260 150 - 400 K/cumm [facility] MPV 9.2 9.1 - 12.3 fL [facility] RBC 3.67(L) 4.30 - 5.80 M/cumm [facility] MCV 86.6 81.3 - 96.4 fL [facility] MCH 29.7 27.1 - 33.3 pg [facility] MCHC 34.3 32.3 - 35.7 g/dL [facility] RDW CV 13.8 11.1 - 14.9 % [facility] RDW SD 43.5 35.7 - 48.1 fL [facility] NRBC abs 0.00 0.00 - 0.01 K/cumm [facility] Blood 06/08/2023 12:0 3 AM COT ASSEMBLER 06/08/2023 12:26 AM COT ASSEMBLER Sheila Winters WEATHERIZATION AND HOUSING INSPECTOR LAB BLOOD ORDERABLES F inal Result Performing Organization Address City/[facility]/ZIP Co de Phone Number [facility] [place] [address] * Phosphorus (06/08/2023 12:03 AM COT ASSEMBLER) Pathologist [facility] Phosphorus, pl 2.8 2.3 - 4.5 mg/dL [facility] Blood 06/08/2023 12:0 3 AM COT ASSEMBLER 06/08/2023 12:26 AM COT ASSEMBLER Sreekanth Armstrong WEATHERIZATION AND HOUSING INSPECTOR LAB BLOOD ORDERABLES Sally l Result [facility] Department [place] [address] * Magnesium (06/08/2023 12:03 AM COT ASSEMBLER) Magnesium 2.2 1.4 - 2.5 mg/dL [facility] Blood 06/08/2023 12:0 3 AM COT ASSEMBLER 06/08/2023 12:26 AM COT ASSEMBLER Sreekanth Armstrong NP LAB BLOOD [place] [address] * Type and screen (06/08/2023 12:03 AM COT ASSEMBLER) ABO Rh A Positive Ellen, indirect Negative [facility] Blood 06/08/2023 12:0 3 AM COT ASSEMBLER 06/08/2023 12:30 AM COT ASSEMBLER Narrative [facility] - 06/08/2023 1:20 AM COT ASSEMBLER Has the patient had Daratumumab or Isatuximab in the past 6 months?->Unknown Sreekanth Armstrong NP LAB BLOOD BANK TEST ORDER CAROLINE Final Result Performing Organization Address City/[facility] Co de Phone Number [facility] Department [place] [address] * XR Chest 1 View (06/07/2023 9:36 PM COT ASSEMBLER) Anatomical Region Laterality Modality Body, Chest N/A Computed Radiogr aphy 06/08/2023 9:22 AM COT ASSEMBLER Impressions 06/08/2023 7:31 PM COT ASSEMBLER Changes of thoracic and abdominal aortic stent [...] Gen Baker M.D. Narrative 06/08/2023 7:31 PM COT ASSEMBLER EXAMINATION: 1 view chest radiograph Comparison to [...] signed by: Gen Baker M.D. Sreekanth Armstrong WEATHERIZATION AND HOUSING INSPECTOR IMG XR PROCEDURES Final R esult * Critical Care (06/07/2023 7:53 PM COT ASSEMBLER) Narrative Mehul Brooks MD - 06/07/2023 7:53 PM COT ASSEMBLER Roldan Campbell PA ? 06/08/2023 ??4:34 AM [...] plan with the ICU team and other medical/garden consultant staff, making frequent assessments and decisions [...] Lower Extremity Left Limited (06/07/2023 2:29 PM COT ASSEMBLER) Anatomical Region Laterality Modality Lower Extremities Left Ultrasound 06/07/2023 3:02 PM COT ASSEMBLER Impressions 06/07/2023 4:09 PM COT ASSEMBLER 1. No pseudoaneurysm or arteriovenous fistula of the left groin. 2. No groin hematoma. Dictated by: Sherri Banerjee MD The radiology attending physician has personally reviewed this study, and had reviewed and/or edited this written report and agrees with it. Electronically signed by: Monster Easley M.D. Narrative 06/07/2023 4:09 PM COT ASSEMBLER EXAMINATION: LIMITED LEFT GROIN SONOGRAM AND DOPPLER [...] esult * Critical Care (06/07/2023 6:19 AM COT ASSEMBLER) Narrative Mehul Brooks MD - 06/07/2023 6:19 AM COT ASSEMBLER Sreekanth Armstrong NP ? 06/07/2023 ??5:10 PM [...] plan with the ICU team and other medical/garden consultant staff, making frequent assessments and decisions [...] Final Result * eGFR (06/07/2023 12:11 AM COT ASSEMBLER) [facility] eGFR >90 >=60 mL/min/1. 73 m2 [facility] Comment: Interpretive Data Reference Interval Normal [...] reviewed 2021. Blood 06/07/2023 12:1 1 AM COT ASSEMBLER 06/07/2023 12:32 AM COT ASSEMBLER us Sheila Winters WEATHERIZATION AND HOUSING INSPECTOR LAB BLOOD ORDERABLES F inal Result [facility] Department [place] [address] * (ABNORMAL) Basic metabolic panel (06/07/2023 12:11 AM COT ASSEMBLER) Sodium 134(L) 135 - 145 mmol/L [facility] Potassium, pl 3.7 3.3 - 4.9 mmol/L [facility] Chloride 97 97 - 110 mmol/L [facility] CO2 28 22 - 32 mmol/L [facility] Anion gap 9 2 - 15 mmol/L [facility] BUN 8 6 - 25 mg/dL [facility] Creatinine 0.80 0.80 - 1.30 mg/dL [facility] Glucose 114 70 - 199 mg/dL [facility] Comment: Interpretive Data Fasting glucose >/= 126 [...] Calcium 8.5 8.5 - 10.3 mg/dL [facility] Blood 06/07/2023 12:1 1 AM COT ASSEMBLER 06/07/2023 12:32 AM COT ASSEMBLER Sheila Winters WEATHERIZATION AND HOUSING INSPECTOR LAB BLOOD ORDERABLES F inal Result [facility] Department [place] [address] * (ABNORMAL) CBC without differential (06/07/2023 12:11 AM COT ASSEMBLER) WBC 11.2(H) 3.8 - 9.9 K/cumm [facility] Hgb 11.1(L) 13.0 - 17.5 g/dL [facility] Hct 33.1(L) 38.9 - 50.3 % [facility] Plt 270 150 - 400 K/cumm [facility] MPV 9.3 9.1 - 12.3 fL [facility] RBC 3.82(L) 4.30 - 5.80 M/cumm [facility] MCV 86.6 81.3 - 96.4 fL [facility] MCH 29.1 27.1 - 33.3 pg [facility] MCHC 33.5 32.3 - 35.7 g/dL [facility] RDW CV 13.4 11.1 - 14.9 % [facility] RDW SD 42.0 35.7 - 48.1 fL [facility] NRBC abs 0.00 0.00 - 0.01 K/cumm [facility] Blood 06/07/2023 12:1 1 AM COT ASSEMBLER 06/07/2023 12:32 AM COT ASSEMBLER Sheila Winters WEATHERIZATION AND HOUSING INSPECTOR LAB BLOOD ORDERABLES F inal Result [facility] [place] [address] * (ABNORMAL) Phosphorus (06/07/2023 12:11 AM COT ASSEMBLER) Phosphorus, pl 2.0(L) 2.3 - 4.5 mg/dL [facility] Blood 06/07/2023 12:1 1 AM COT ASSEMBLER 06/07/2023 12:32 AM COT ASSEMBLER Sreekanth Armstrong WEATHERIZATION AND HOUSING INSPECTOR LAB BLOOD ORDERABLES Sally l Result Performing Organization Address City/[facility]/ZIP Co de Phone Number [facility] [employer] [place] [address] * Magnesium (06/07/2023 12:11 AM COT ASSEMBLER) Magnesium 2.1 1.4 - 2.5 mg/dL [facility] Blood 06/07/2023 12:1 1 AM COT ASSEMBLER 06/07/2023 12:32 AM COT ASSEMBLER Sreekanth Armstrong WEATHERIZATION AND HOUSING INSPECTOR LAB BLOOD ORDERABLES Sally l Result [facility] [employer] [place] [address] * XR Chest 1 View (06/06/2023 7:40 PM COT ASSEMBLER) Anatomical Region Laterality Modality Body, Chest N/A Computed Radiogr aphy 06/07/2023 9:17 AM COT ASSEMBLER Impressions 06/07/2023 12:50 PM COT ASSEMBLER Changes of aortic vascular stent extending the [...] Taco Wallace M.D. Narrative 06/07/2023 12:50 PM COT ASSEMBLER EXAMINATION: 1 view chest radiograph Comparison made [...] Result * Critical Care (06/06/2023 6:30 PM COT ASSEMBLER) Narrative Mehul Brooks MD - 06/06/2023 6:30 PM COT ASSEMBLER Benny Isaacs NP ? 06/07/2023 ??4:28 AM [...] plan with the ICU team and other medical/garden consultant staff, making frequent assessments and decisions [...] inal Result * eGFR (06/06/2023 8:14 AM COT ASSEMBLER) [facility] eGFR >90 >=60 mL/min/1. 73 m2 [facility] Comment: Interpretive Data Reference Interval Normal [...] last reviewed 2021. Blood 06/06/2023 8:14 AM COT ASSEMBLER 06/06/2023 8:45 AM COT ASSEMBLER Sheila Winters WEATHERIZATION AND HOUSING INSPECTOR LAB BLOOD ORDERABLES F inal Result Performing Organization Address [facility] de Phone Number [facility] Department [place] [address] * (ABNORMAL) CBC without differential (06/06/2023 8:14 AM COT ASSEMBLER) [facility] WBC 8.9 3.8 - 9.9 K/cumm [facility] Hgb 10.7(L) 13.0 - 17.5 g/dL [facility] Hct 32.6(L) 38.9 - 50.3 % [facility] Plt 254 150 - 400 K/cumm [facility] MPV 8.9(L) 9.1 - 12.3 fL [facility] RBC 3.74(L) 4.30 - 5.80 M/cumm [facility] MCV 87.2 81.3 - 96.4 fL [facility] MCH 28.6 27.1 - 33.3 pg [facility] MCHC 32.8 32.3 - 35.7 g/dL [facility] RDW CV 13.4 11.1 - 14.9 % [facility] RDW SD 42.4 35.7 - 48.1 fL [facility] NRBC abs 0.00 0.00 - 0.01 K/cumm [facility] Blood 06/06/2023 8:14 AM COT ASSEMBLER 06/06/2023 8:27 AM COT ASSEMBLER Sheila Winters WEATHERIZATION AND HOUSING INSPECTOR LAB BLOOD ORDERABLES F inal Result Performing Organization Address [facility] de Phone Number [facility] Department [place] [address] * (ABNORMAL) Basic metabolic panel (06/06/2023 8:14 AM COT ASSEMBLER) [facility] Sodium 137 135 - 145 mmol/L [facility] Potassium, pl 3.6 3.3 - 4.9 mmol/L [facility] Chloride 100 97 - 110 mmol/L [facility] CO2 30 22 - 32 mmol/L [facility] Anion gap 7 2 - 15 mmol/L [facility] BUN 7 6 - 25 mg/dL [facility] Creatinine 0.91 0.80 - 1.30 mg/dL [facility] Glucose 97 70 - 199 mg/dL [facility] Comment: Interpretive Data Fasting glucose >/= 126 [...] Calcium 8.4(L) 8.5 - 10.3 mg/dL [facility] Blood 06/06/2023 8:14 AM COT ASSEMBLER 06/06/2023 8:27 AM COT ASSEMBLER us Sheila Winters NP LAB BLOOD ORDERABLES F inal Result [facility] Department [place] [address] * Critical Care (06/06/2023 7:00 AM COT ASSEMBLER) Narrative Mehul Brooks MD - 06/06/2023 7:00 AM COT ASSEMBLER Sheila Winters NP ? 06/06/2023 11:08 AM [...] plan with the ICU team and other medical/garden consultant staff, making frequent assessments and decisions [...] documenting in the medical record Sheila Winters WEATHERIZATION AND HOUSING INSPECTOR IN CLINIC/BEDSIDE SHAUNA LOPEZ Final Result * Basic metabolic panel (06/06/2023 12:06 AM COT ASSEMBLER) Sodium 141 135 - 145 mmol/L [facility] Potassium, pl 3.4 3.3 - 4.9 mmol/L [facility] Chloride 103 97 - 110 mmol/L [facility] CO2 28 22 - 32 mmol/L [facility] Anion gap 10 2 - 15 mmol/L [facility] BUN 9 6 - 25 mg/dL [facility] Creatinine 1.13 0.80 - 1.30 mg/dL [facility] Glucose 100 70 - 199 mg/dL [facility] Comment: Interpretive Data Fasting glucose >/= 126 [...] Calcium 8.8 8.5 - 10.3 mg/dL [facility] Blood 06/06/2023 12:0 6 AM COT ASSEMBLER 06/06/2023 12:28 AM COT ASSEMBLER us Nikhil Samuel MD LAB BLOOD ORDERABLES Sally l Result Performing Organization Address [facility] Co de Phone Number [facility] Department [place] [address] * eGFR (06/06/2023 12:06 AM COT ASSEMBLER) eGFR 89 >=60 mL/min/1. 73 m2 [facility] Comment: Interpretive Data Reference Interval Normal [...] reviewed 2021. Blood 06/06/2023 12:0 6 AM COT ASSEMBLER 06/06/2023 12:40 AM COT ASSEMBLER us Nikhil Samuel MD LAB BLOOD ORDERABLES Sally l Result [facility] [place] [address] * Phosphorus (06/06/2023 12:06 AM COT ASSEMBLER) [facility] Phosphorus, pl 3.1 2.3 - 4.5 mg/dL [facility] Comment:Reviewed Blood 06/06/2023 12:0 6 AM COT ASSEMBLER 06/06/2023 12:28 AM COT ASSEMBLER Sreekanth Armstrong WEATHERIZATION AND HOUSING INSPECTOR LAB BLOOD ORDERABLES Sally l Result Performing Organization Address [facility] Co de Phone Number [facility] [place] [address] * Magnesium (06/06/2023 12:06 AM COT ASSEMBLER) [facility] Magnesium 1.9 1.4 - 2.5 mg/dL [facility] Blood 06/06/2023 12:0 6 AM COT ASSEMBLER 06/06/2023 12:28 AM COT ASSEMBLER Sreekanth Armstrong WEATHERIZATION AND HOUSING INSPECTOR LAB BLOOD ORDERABLES Sally l Result Performing Organization Address [facility] de Phone Number [facility] [place] [address] * (ABNORMAL) CBC without differential (06/06/2023 12:06 AM COT ASSEMBLER) [facility] WBC 9.0 3.8 - 9.9 K/cumm [facility] Hgb 10.2(L) 13.0 - 17.5 g/dL [facility] Hct 30.0(L) 38.9 - 50.3 % [facility] Plt 259 150 - 400 K/cumm [facility] MPV 9.1 9.1 - 12.3 fL [facility] RBC 3.47(L) 4.30 - 5.80 M/cumm [facility] MCV 86.5 81.3 - 96.4 fL [facility] MCH 29.4 27.1 - 33.3 pg [facility] MCHC 34.0 32.3 - 35.7 g/dL [facility] RDW CV 13.6 11.1 - 14.9 % [facility] RDW SD 42.5 35.7 - 48.1 fL [facility] NRBC abs 0.00 0.00 - 0.01 K/cumm [facility] Blood 06/06/2023 12:0 6 AM COT ASSEMBLER 06/06/2023 12:24 AM COT ASSEMBLER us Sheila Winters WEATHERIZATION AND HOUSING INSPECTOR LAB BLOOD ORDERABLES F inal Result [facility] Department [place] [address] * XR Chest 1 View (06/05/2023 7:37 PM COT ASSEMBLER) Anatomical Region Laterality Modality Body, Chest N/A Computed Radiogr aphy 06/06/2023 7:52 AM COT ASSEMBLER Impressions 06/06/2023 7:52 AM COT ASSEMBLER Comparison is made to chest radiograph dated [...] Faiza Su M.D. Narrative 06/06/2023 7:52 AM COT ASSEMBLER EXAMINATION: 1 view chest radiograph Procedure Note [...] Result * Critical Care (06/05/2023 6:37 PM COT ASSEMBLER) Narrative Mehul Brooks MD - 06/05/2023 6:37 PM COT ASSEMBLER Benny Isaacs NP ? 06/06/2023 ??5:13 AM [...] plan with the ICU team and other medical/garden consultant staff, making frequent assessments and decisions [...] Result * Transfuse RBC (06/05/2023 3:17 PM COT ASSEMBLER) Blood Sreekanth Armstrong NP BLOOD TRANSFUSION ORDERAB LES Final Result [facility] Department [place] [address] * aPTT (06/05/2023 2:53 PM COT ASSEMBLER) aPTT 32 28 - 38 sec [facility] Comment: Interpretive Data Heparin therapeutic range: 66.0 - 100.0 seconds. Range based on correlation with therapeutic heparin activity range of 0.3 - 0.7 Units/mL. Current interpretive data was last revised on 2023. Blood 06/05/2023 2:53 PM COT ASSEMBLER 06/05/2023 3:05 PM COT ASSEMBLER Sheila Winters WEATHERIZATION AND HOUSING INSPECTOR LAB BLOOD ORDERABLES F inal Result Performing Organization Address [facility] Co de Phone Number [facility] [place] [address] * (ABNORMAL) Protime-INR (06/05/2023 2:53 PM COT ASSEMBLER) [facility] PT 15.3(H) 10.3 - 13.7 sec [facility] INR 1.34(H) 0.90 - 1.20 [facility] Comment: Interpretive data Oral anticoagulant therapeutic ranges: Venous thromboembolism prophylaxis or treatment: 2.0-3.0 CARDIOLOGY Standard range: 2.0-3.0 High-intensity range: 2.5-3.5 Refer to indication-specific guidelines for appropriate target ranges for prosthetic heart valve replacement. Current interpretive data was last revised on 2019. Blood 06/05/2023 2:53 PM COT ASSEMBLER 06/05/2023 3:05 PM COT ASSEMBLER Sheila Winters WEATHERIZATION AND HOUSING INSPECTOR LAB BLOOD ORDERABLES F inal Result Performing Organization Address [facility] Co de Phone Number [facility] [place] [address] * (ABNORMAL) eGFR (06/05/2023 1:34 PM COT ASSEMBLER) Pathologist [facility] eGFR 54(L) >=60 mL/min/1. 73 m2 [facility] Comment: Interpretive Data Reference Interval Normal [...] last reviewed 2021. Blood 06/05/2023 1:34 PM COT ASSEMBLER 06/05/2023 2:05 PM COT ASSEMBLER Sheila Winters WEATHERIZATION AND HOUSING INSPECTOR LAB BLOOD ORDERABLES F inal Result Performing Organization Address City/State/[facility] Co de Phone Number [facility] Department [place] [address] * (ABNORMAL) Differential, auto (06/05/2023 1:34 PM COT ASSEMBLER) Neutrophil abs 10.3(H) 1.5 - 6.5 K/cumm [facility] Imm gran abs 0.3(H) 0.0 - 0.1 K/cumm [facility] Lymphocyte abs 1.3 0.8 - 3.3 K/cumm [facility] Monocyte abs 0.5 0.2 - 0.8 K/cumm [facility] Eosinophil abs 0.1 0.0 - 0.5 K/cumm [facility] Basophil abs 0.0 0.0 - 0.1 K/cumm [facility] Neutrophil pct 82.4 % [facility] Comment: Interpretive Data Percent cell count reference ranges are not reported, since discordance with absolute values may lead to misinterpretation of CBC data. Current Interpretive Data was last revised on 2017. Imm gran pct 2.6 % [facility] Comment: Interpretive Data Percent cell count reference ranges are not reported, since discordance with absolute values may lead to misinterpretation of CBC data. Current Interpretive Data was last revised on 2017. Lymphocyte pct 10.5 % [facility] Comment: Interpretive Data Percent cell count reference ranges are not reported, since discordance with absolute values may lead to misinterpretation of CBC data. Current Interpretive Data was last revised on 2017. Monocyte pct 3.8 % [facility] Comment: Interpretive Data Percent cell count reference ranges are not reported, since discordance with absolute values may lead to misinterpretation of CBC data. Current Interpretive Data was last revised on 2017. Eosinophil pct 0.5 % [facility] Comment: Interpretive Data Percent cell count reference ranges are not reported, since discordance with absolute values may lead to misinterpretation of CBC data. Current Interpretive Data was last revised on 2017. Basophil pct 0.2 % [facility] Comment: Interpretive Data Percent cell count reference ranges are not reported, since discordance with absolute values may lead to misinterpretation of CBC data. Current Interpretive Data was last revised on 2017. Blood 06/05/2023 1:34 PM COT ASSEMBLER 06/05/2023 2:05 PM COT ASSEMBLER us Sheila Winters WEATHERIZATION AND HOUSING INSPECTOR LAB BLOOD ORDERABLES F inal Result [facility] [place] [address] * (ABNORMAL) Phosphorus (06/05/2023 1:34 PM COT ASSEMBLER) Phosphorus, pl 5.8(H) 2.3 - 4.5 mg/dL [facility] Blood 06/05/2023 1:34 PM COT ASSEMBLER 06/05/2023 2:05 PM COT ASSEMBLER Sheila Winters WEATHERIZATION AND HOUSING INSPECTOR LAB BLOOD ORDERABLES F inal Result Performing Organization Address [facility] Co de Phone Number [facility] [place] [address] * Magnesium (06/05/2023 1:34 PM COT ASSEMBLER) [facility] Magnesium 2.1 1.4 - 2.5 mg/dL [facility] Blood 06/05/2023 1:34 PM COT ASSEMBLER 06/05/2023 2:05 PM COT ASSEMBLER Sheila Winters WEATHERIZATION AND HOUSING INSPECTOR LAB BLOOD ORDERABLES F inal Result Performing Organization Address [facility] de Phone Number [facility] [place] [address] * (ABNORMAL) Basic metabolic panel (06/05/2023 1:34 PM COT ASSEMBLER) [facility] Sodium 139 135 - 145 mmol/L [facility] Potassium, pl 4.0 3.3 - 4.9 mmol/L [facility] Chloride 104 97 - 110 mmol/L [facility] CO2 23 22 - 32 mmol/L [facility] Anion gap 12 2 - 15 mmol/L [facility] BUN 14 6 - 25 mg/dL [facility] Creatinine 1.71(H) 0.80 - 1.30 mg/dL [facility] Glucose 90 70 - 199 mg/dL [facility] Comment: Interpretive Data Fasting glucose >/= 126 [...] Calcium 8.7 8.5 - 10.3 mg/dL [facility] Blood 06/05/2023 1:34 PM COT ASSEMBLER 06/05/2023 2:05 PM COT ASSEMBLER Sheila Winters WEATHERIZATION AND HOUSING INSPECTOR LAB BLOOD ORDERABLES F inal Result Performing Organization Address [facility] Co de Phone Number [facility] Department [place] [address] * (ABNORMAL) CBC with auto differential (06/05/2023 1:34 PM COT ASSEMBLER) [facility] WBC 12.5(H) 3.8 - 9.9 K/cumm [facility] Hgb 10.4(L) 13.0 - 17.5 g/dL [facility] Hct 31.7(L) 38.9 - 50.3 % [facility] Plt 267 150 - 400 K/cumm [facility] MPV 8.8(L) 9.1 - 12.3 fL [facility] RBC 3.59(L) 4.30 - 5.80 M/cumm [facility] MCV 88.3 81.3 - 96.4 fL [facility] MCH 29.0 27.1 - 33.3 pg [facility] MCHC 32.8 32.3 - 35.7 g/dL [facility] RDW CV 13.4 11.1 - 14.9 % [facility] RDW SD 43.4 35.7 - 48.1 fL [facility] NRBC abs 0.00 0.00 - 0.01 K/cumm [facility] Blood 06/05/2023 1:34 PM COT ASSEMBLER 06/05/2023 2:05 PM COT ASSEMBLER Sheila Winters NP LAB BLOOD ORDERABLES F inal Result Performing Organization Address City/[facility] Co de Phone Number [facility] Department [place] [employer] [place] [address] * THORACIC ENDOVASCULAR REPAIR - AORTIC (06/05/2023 1:15 PM COT ASSEMBLER) Anatomical Region Laterality Modality X-Ray Angiograph y Narrative 06/05/2023 1:51 PM COT ASSEMBLER Please see OpNote for result. us Nikhil Samuel MD SURGICAL CASE ORDERS Sally l Result * POCT Activated clotting time, low range (06/05/2023 12:42 PM COT ASSEMBLER) ACT 150 123 - 168 sec [facility] Performer [id number] [facility] Device Number [id number] [facility] Blood 06/05/2023 12:4 2 PM COT ASSEMBLER 06/05/2023 12:42 PM COT ASSEMBLER us Nikhil Samuel MD LAB POCT ORDERABLES - DEV ICE Final Result Performing Organization Address [facility] Co de Phone Number [facility] Department [place] [employer] [place] [address] * (ABNORMAL) POCT Activated clotting time, low range (06/05/2023 12:29 PM COT ASSEMBLER) ACT 219(H) 123 - 168 sec [facility] Performer [id number] [facility] Device Number [id number] [facility] Blood 06/05/2023 12:2 9 PM COT ASSEMBLER 06/05/2023 12:29 PM COT ASSEMBLER us Nikhil Samuel MD LAB POCT ORDERABLES - DEV ICE Final Result Performing Organization Address City/[facility] Co de Phone Number [facility] Department [place] [address] * (ABNORMAL) POCT Activated clotting time, low range (06/05/2023 11:49 AM COT ASSEMBLER) ACT 244(H) 123 - 168 sec [facility] Performer [id number] [facility] Device Number [id number] [facility] Blood 06/05/2023 11:4 9 AM COT ASSEMBLER 06/05/2023 11:49 AM COT ASSEMBLER us Nikhil Samuel MD LAB POCT ORDERABLES - DEV ICE Final Result Performing Organization Address [facility] Co de Phone Number [facility] [place] [address] * Transfuse RBC (06/05/2023 11:36 AM COT ASSEMBLER) Blood us Ney Alex MD BLOOD TRANSFUSION ORD ERABLES Final Result Performing Organization Address [facility] Co de Phone Number [facility] [place] [employer] [place] [address] * (ABNORMAL) POCT Activated clotting time, low range (06/05/2023 11:27 AM COT ASSEMBLER) ACT 250(H) 123 - 168 sec [facility] Performer [id number] [facility] Device Number [id number] [facility] Blood 06/05/2023 11:2 7 AM COT ASSEMBLER 06/05/2023 11:27 AM COT ASSEMBLER us Nikhil Samuel MD LAB POCT ORDERABLES - DEV ICE Final Result Performing Organization Address [facility] de Phone Number [facility] [employer] [place] [address] * (ABNORMAL) POC Blood Gas and Chemistries, Arterial - (06/05/2023 11:19 AM COT ASSEMBLER) pH, Art POC 7.33(L) 7.35 - 7.45 [facility] pCO2, Art POC 43 35 - 45 mmHg [facility] pO2, Art POC 146(H) 83 - 108 mmHg [facility] Na, POC 139 135 - 145 mmol/L [facility] K POC 4.5 3.3 - 4.9 mmol/L [facility] Comment: Interpretive Data This method is not able to assess for hemolysis, which may falsely increase potassium concentrations. If further testing is needed to evaluate this result, consider in-laboratory plasma potassium. Current Interpretive Data was last revised on 2022. Cl, POC 108 97 - 110 mmol/L [facility] Ionized Ca, POC 4.70 4.50 - 5.10 mg/dL [facility] Glucose, POC 115 70 - 199 mg/dL [facility] Lactate, POC 1.8 0.7 - 2.2 mmol/L [facility] SO2 (natalia) arterial 100(H) 90 - 95 % [facility] Base excess, POC -3.1 mmol/L [facility] HCO3, Art POC 23 20 - 30 mmol/L [facility] Hct, POC 24.0(L) 41.4 - 51.6 % [facility] O2 Sat, Art POC (Calc) 99 % [facility] Total Hb, POC 7.9(L) 13.8 - 17.2 g/dL [facility] Blood 06/05/2023 11:1 9 AM COT ASSEMBLER 06/05/2023 11:19 AM COT ASSEMBLER us Nikhil Samuel MD LAB POCT ORDERABLES - DEV ICE Final Result Performing Organization Address City/[facility]/ZIP Co de Phone Number [facility] Department [place] [employer] [place] [address] * Transfuse RBC (06/05/2023 9:13 AM COT ASSEMBLER) Blood us Sreekanth Armstrong NP BLOOD TRANSFUSION ORDERAB LES Final Result Performing Organization Address City/[facility]/ZIP Co de Phone Number [facility] Department [place] [employer] [place] [address] * Prepare RBC: 4 Units (06/05/2023 7:54 AM COT ASSEMBLER) Product code [id number] [facility] Unit Number [id number] [facility] ERWIN Product Blood Type APOS CERADELE BJRubina Dispense Status PRESUMED TRANSFUSED CERNER BJRubina Product code [id number] [facility] Unit Number [id number] [facility]ER[facility] BJRubina Product Blood Type APOS [facility]ER [facility] Dispense Status PRESUMED TRANSFUSED CERNER BJRubina Product code [id number] Unit Number [id number] [facility]ER BJ Product Blood Type APOS CERNER BJ Dispense Status RETURNED CERADELE BJRubina Product code [id number] CERADELE BJ Unit Number [id number] CERADELE BJ Product Blood Type APOS CERNER BJ Dispense Status PRESUMED TRANSFUSED [facility] Blood 06/05/2023 7:54 AM COT ASSEMBLER 06/05/2023 7:54 AM COT ASSEMBLER Narrative JAIRON COLON - 06/07/2023 7:41 AM COT ASSEMBLER Specify Procedure:->EVAR Are special requirements needed? (All products are leukoreduced and CMV- safe)- >No Date required:-[id number] LRRBC # of [id number] Reasons:-Pre-op Hgb <8 g/dL} us Sheila Winters NP BLOOD BANK PRODUCT ORD ERABLES Final Result [facility] Department [place] [address] * Critical Care (06/05/2023 6:40 AM COT ASSEMBLER) Narrative Mehul Brooks MD - 06/05/2023 6:40 AM COT ASSEMBLER Sheila Winters NP ? 06/05/2023 12:01 PM [...] plan with the ICU team and other medical/garden consultant staff, making frequent assessments and decisions [...] Result * (ABNORMAL) eGFR (06/05/2023 5:27 AM COT ASSEMBLER) [facility] eGFR 52(L) >=60 mL/min/1. 73 m2 [facility] Comment: Interpretive Data Reference Interval [...] last reviewed 2021. Blood 06/05/2023 5:27 AM COT ASSEMBLER 06/05/2023 5:38 AM COT ASSEMBLER Alonzo Duncan MD LAB BLOOD ORDERABLES Fin al Result Performing Organization Address City/[facility] Co de Phone Number [facility] of [employer] [place] [address] * (ABNORMAL) Phosphorus (06/05/2023 5:27 AM COT ASSEMBLER) Phosphorus, pl 5.4(H) 2.3 - 4.5 mg/dL [facility] Blood 06/05/2023 5:27 AM COT ASSEMBLER 06/05/2023 5:38 AM COT ASSEMBLER Sreekanth Armstrong NP LAB BLOOD ORDERABLES Sally l Result Performing Organization Address [facility] de Phone Number [facility] [employer] [place] [address] * Magnesium (06/05/2023 5:27 AM COT ASSEMBLER) Magnesium 2.2 1.4 - 2.5 mg/dL [facility] Blood 06/05/2023 5:27 AM COT ASSEMBLER 06/05/2023 5:38 AM COT ASSEMBLER Sreekanth Armstrong WEATHERIZATION AND HOUSING INSPECTOR LAB BLOOD ORDERABLES Sally l Result Performing Organization Address [facility] de Phone Number [facility] [employer] [place] [address] * Lactate, whole blood (06/05/2023 5:27 AM COT ASSEMBLER) Lactate, bld 1.0 0.7 - 2.0 mmol/L [facility] Blood 06/05/2023 5:27 AM COT ASSEMBLER 06/05/2023 5:33 AM COT ASSEMBLER us Sherlyn Alicea MD LAB BLOOD ORDERABLES F inal Result Performing Organization Address [facility] Co de Phone Number [facility] Department [place] [address] * (ABNORMAL) CBC without differential (06/05/2023 5:27 AM COT ASSEMBLER) WBC 8.8 3.8 - 9.9 K/cumm [facility] Hgb 7.8(L) 13.0 - 17.5 g/dL [facility] Hct 23.7(L) 38.9 - 50.3 % [facility] Plt 311 150 - 400 K/cumm [facility] MPV 8.9(L) 9.1 - 12.3 fL [facility] RBC 2.64(L) 4.30 - 5.80 M/cumm [facility] MCV 89.8 81.3 - 96.4 fL [facility] MCH 29.5 27.1 - 33.3 pg [facility] MCHC 32.9 32.3 - 35.7 g/dL [facility] RDW CV 13.1 11.1 - 14.9 % [facility] RDW SD 42.8 35.7 - 48.1 fL [facility] NRBC abs 0.00 0.00 - 0.01 K/cumm [facility] Blood 06/05/2023 5:27 AM COT ASSEMBLER 06/05/2023 5:38 AM COT ASSEMBLER us Alonzo Duncan MD LAB BLOOD ORDERABLES Fin al Result Performing Organization Address [facility]/ZIP Co de Phone Number [facility] Department [place] [address] * (ABNORMAL) Basic metabolic panel (06/05/2023 5:27 AM COT ASSEMBLER) Sodium 140 135 - 145 mmol/L [facility] Potassium, pl 4.1 3.3 - 4.9 mmol/L [facility] Chloride 104 97 - 110 mmol/L [facility] CO2 23 22 - 32 mmol/L [facility] Anion gap 13 2 - 15 mmol/L [facility] BUN 17 6 - 25 mg/dL [facility] Creatinine 1.78(H) 0.80 - 1.30 mg/dL [facility] Glucose 130 70 - 199 mg/dL [facility] Comment: Interpretive Data Fasting glucose >/= 126 [...] Calcium 8.4(L) 8.5 - 10.3 mg/dL [facility] Blood 06/05/2023 5:27 AM COT ASSEMBLER 06/05/2023 5:38 AM COT ASSEMBLER us Alonzo Duncan MD LAB BLOOD ORDERABLES Fin al Result [facility] Department [place] [address] * (ABNORMAL) Triglycerides (06/05/2023 5:27 AM COT ASSEMBLER) Triglycerides 275(H) <=149 mg/dL [facility] Comment: Interpretive Data Ages < or = [...] revised on 2018. Blood 06/05/2023 5:27 AM COT ASSEMBLER 06/05/2023 5:38 AM COT ASSEMBLER Alonzo Duncan MD LAB BLOOD ORDERABLES Fin al Result Performing Organization Address [facility] de Phone Number [facility] Department [place] [address] * Magnesium (06/04/2023 11:59 PM COT ASSEMBLER) Magnesium 2.4 1.4 - 2.5 mg/dL [facility] Blood 06/04/2023 11:5 9 PM COT ASSEMBLER 06/05/2023 12:25 AM COT ASSEMBLER Alonzo Duncan MD LAB BLOOD ORDERABLES Fin al Result Performing Organization Address [facility] de Phone Number [facility] [place] [address] * (ABNORMAL) Phosphorus (06/04/2023 11:59 PM COT ASSEMBLER) Phosphorus, pl 6.1(H) 2.3 - 4.5 mg/dL [facility] Blood 06/04/2023 11:5 9 PM COT ASSEMBLER 06/05/2023 12:25 AM COT ASSEMBLER us Alonzo Duncan MD LAB BLOOD ORDERABLES Fin al Result Performing Organization Address City/[facility] Co de Phone Number [facility] Department [place] [address] * (ABNORMAL) eGFR (06/04/2023 11:59 PM COT ASSEMBLER) eGFR 47(L) >=60 mL/min/1. 73 m2 [facility] Comment: Interpretive Data Reference Interval Normal [...] reviewed 2021. Blood 06/04/2023 11:5 9 PM COT ASSEMBLER 06/05/2023 12:25 AM COT ASSEMBLER us Alonzo Duncan MD LAB BLOOD ORDERABLES Fin al Result Performing Organization Address [facility] Co de Phone Number [facility] Department [place] [address] * Lactate, whole blood (06/04/2023 11:59 PM COT ASSEMBLER) [facility] Lactate, bld 1.1 0.7 - 2.0 mmol/L [facility] Blood 06/04/2023 11:5 9 PM COT ASSEMBLER 06/05/2023 12:13 AM COT ASSEMBLER Sherlyn Alicea MD LAB BLOOD ORDERABLES F inal Result Performing Organization Address [facility]/ZIP Co de Phone Number [facility] Department [place] [address] * (ABNORMAL) CBC without differential (06/04/2023 11:59 PM COT ASSEMBLER) [facility] WBC 9.3 3.8 - 9.9 K/cumm [facility] Hgb 7.7(L) 13.0 - 17.5 g/dL [facility] Hct 24.3(L) 38.9 - 50.3 % [facility] Plt 319 150 - 400 K/cumm [facility] MPV 9.1 9.1 - 12.3 fL [facility] RBC 2.69(L) 4.30 - 5.80 M/cumm [facility] MCV 90.3 81.3 - 96.4 fL [facility] MCH 28.6 27.1 - 33.3 pg [facility] MCHC 31.7(L) 32.3 - 35.7 g/dL [facility] RDW CV 13.0 11.1 - 14.9 % [facility] SD 42.9 35.7 - 48.1 fL [facility] NRBC abs 0.00 0.00 - 0.01 K/cumm [facility] Blood 06/04/2023 11:5 9 PM COT ASSEMBLER 06/05/2023 12:25 AM COT ASSEMBLER Alonzo Duncan MD LAB BLOOD ORDERABLES Fin al Result Performing Organization Address City/[facility]/ZIP Co de Phone Number [facility] Department [place] [address] * (ABNORMAL) Basic metabolic panel (06/04/2023 11:59 PM COT ASSEMBLER) Sodium 139 135 - 145 mmol/L [facility] Potassium, pl 4.1 3.3 - 4.9 mmol/L [facility] Chloride 105 97 - 110 mmol/L [facility] CO2 23 22 - 32 mmol/L [facility] Anion gap 11 2 - 15 mmol/L [facility] BUN 17 6 - 25 mg/dL [facility] Creatinine 1.91(H) 0.80 - 1.30 mg/dL [facility] Glucose 112 70 - 199 mg/dL [facility] Comment: Interpretive Data Fasting glucose >/= 126 [...] Calcium 8.4(L) 8.5 - 10.3 mg/dL [facility] Blood 06/04/2023 11:5 9 PM COT ASSEMBLER 06/05/2023 12:25 AM COT ASSEMBLER us Alonzo Duncan MD LAB BLOOD ORDERABLES Fin al Result [facility] Department [place] [address] * XR Chest 1 View - in PM (06/04/2023 8:53 PM COT ASSEMBLER) Anatomical Region Laterality Modality Body, Chest N/A Digital Radiogra phy 06/04/2023 10:0 2 PM COT ASSEMBLER Impressions 06/04/2023 10:02 PM COT ASSEMBLER Comparison is made to the prior examination from 05/13/2023. ??Aortic stent graft is unchanged in position. ??There is no pneumonic consolidation, effusion, or pneumothorax. ??The heart size is stable. Electronically signed by: Gen Baker M.D. Narrative 06/04/2023 10:02 PM COT ASSEMBLER EXAMINATION: 1 view chest radiograph Procedure Note [...] Result * Critical Care (06/04/2023 6:46 PM COT ASSEMBLER) Narrative Mehul Brooks MD - 06/04/2023 6:46 PM COT ASSEMBLER Benny Isaacs NP ? 06/05/2023 ??5:07 AM [...] plan with the ICU team and other medical/garden consultant staff, making frequent assessments and decisions [...] in the medical record us Benny Isaacs WEATHERIZATION AND HOUSING INSPECTOR IN CLINIC/BEDSIDE ORDERABLES F inal Result * (ABNORMAL) eGFR (06/04/2023 5:33 PM COT ASSEMBLER) Pathologist [facility] eGFR 54(L) >=60 mL/min/1. 73 m2 [facility] Comment: Interpretive Data Reference Interval Normal [...] last reviewed 2021. Blood 06/04/2023 5:33 PM COT ASSEMBLER 06/04/2023 5:46 PM COT ASSEMBLER us Alonzo Duncan MD LAB BLOOD ORDERABLES Fin al Result [facility] [place] [address] * Lactate, whole blood (06/04/2023 5:33 PM COT ASSEMBLER) Pathologist [facility] Lactate, bld 1.8 0.7 - 2.0 mmol/L [facility] Blood 06/04/2023 5:33 PM COT ASSEMBLER 06/04/2023 5:40 PM COT ASSEMBLER Sherlyn Alicea MD LAB BLOOD ORDERABLES F inal Result Performing Organization Address [facility] Co de Phone Number [facility] Department [place] [address] * (ABNORMAL) CBC without differential (06/04/2023 5:33 PM COT ASSEMBLER) [facility] WBC 7.9 3.8 - 9.9 K/cumm [facility] Hgb 7.8(L) 13.0 - 17.5 g/dL [facility] Hct 24.6(L) 38.9 - 50.3 % [facility] Plt 308 150 - 400 K/cumm [facility] MPV 8.7(L) 9.1 - 12.3 fL [facility] RBC 2.71(L) 4.30 - 5.80 M/cumm [facility] MCV 90.8 81.3 - 96.4 fL [facility] MCH 28.8 27.1 - 33.3 pg [facility] MCHC 31.7(L) 32.3 - 35.7 g/dL [facility] RDW CV 12.9 11.1 - 14.9 % [facility] RDW SD 42.8 35.7 - 48.1 fL [facility] NRBC abs 0.00 0.00 - 0.01 K/cumm [facility] Blood 06/04/2023 5:33 PM COT ASSEMBLER 06/04/2023 5:47 PM COT ASSEMBLER Alonzo Duncan MD LAB BLOOD ORDERABLES Fin al Result Performing Organization Address City/[facility]/ZIP Co de Phone Number [facility] Department [place] [address] * (ABNORMAL) Basic metabolic panel (06/04/2023 5:33 PM COT ASSEMBLER) Sodium 139 135 - 145 mmol/L [facility] Potassium, pl 4.4 3.3 - 4.9 mmol/L [facility] Chloride 106 97 - 110 mmol/L [facility] CO2 22 22 - 32 mmol/L [facility] Anion gap 11 2 - 15 mmol/L [facility] BUN 17 6 - 25 mg/dL [facility] Creatinine 1.71(H) 0.80 - 1.30 mg/dL [facility] Glucose 105 70 - 199 mg/dL [facility] Comment: Interpretive Data Fasting glucose >/= 126 [...] Calcium 8.7 8.5 - 10.3 mg/dL [facility] Blood 06/04/2023 5:33 PM COT ASSEMBLER 06/04/2023 5:46 PM COT ASSEMBLER us Alonzo Duncan MD LAB BLOOD ORDERABLES Fin al Result [facility] [place] [address] * US Doppler Renal Artery LTD (06/04/2023 12:27 PM COT ASSEMBLER) Anatomical Region Laterality Modality Vascular N/A Ultrasound 06/04/2023 12:3 8 PM COT ASSEMBLER Impressions 06/04/2023 12:52 PM COT ASSEMBLER Limited examination due to portable technique, within the limitation, pulsatile arterial waveforms in the bilateral renal arteries without evidence of renal artery occlusion. Dictated by: Quincy Painting M.D. The radiology attending physician has personally reviewed this study, and had reviewed and/or edited this written report and agrees with it. Electronically signed by: Otoniel Mccain M.D. Narrative 06/04/2023 12:52 PM COT ASSEMBLER EXAMINATION: LIMITED RENAL DOPPLER HISTORY: ??Aortic dissection [...] by: Otoniel Mccain M.D. Alonzo Duncan MD [facility] US PROCEDURES Final Result * eGFR (06/04/2023 11:37 AM COT ASSEMBLER) [facility] eGFR 61 >=60 mL/min/1. 73 m2 [facility] Comment: Interpretive Data Reference Interval Normal [...] reviewed 2021. Blood 06/04/2023 11:3 7 AM COT ASSEMBLER 06/04/2023 11:56 AM COT ASSEMBLER us Alonzo Duncan MD LAB BLOOD ORDERABLES Fin al Result Performing Organization Address City/State/[facility] Co de Phone Number [facility] Department [place] [address] * (ABNORMAL) Protime-INR (06/04/2023 11:37 AM COT ASSEMBLER) PT 15.6(H) 10.3 - 13.7 sec [facility] INR 1.37(H) 0.90 - 1.20 [facility] Comment: Interpretive data Oral anticoagulant therapeutic ranges: Venous thromboembolism prophylaxis or treatment: 2.0-3.0 CARDIOLOGY Standard range: 2.0-3.0 High-intensity range: 2.5-3.5 Refer to indication-specific guidelines for appropriate target ranges for prosthetic heart valve replacement. Current interpretive data was last revised on 2019. Blood 06/04/2023 11:3 7 AM COT ASSEMBLER 06/04/2023 11:45 AM COT ASSEMBLER Sheila Winters NP LAB BLOOD ORDERABLES F inal Result Performing Organization Address City/[facility]/ZIP Co de Phone Number [facility] [place] [address] * Lactate, whole blood (06/04/2023 11:37 AM COT ASSEMBLER) [facility] Lactate, bld 1.1 0.7 - 2.0 mmol/L [facility] Blood 06/04/2023 11:3 7 AM COT ASSEMBLER 06/04/2023 11:42 AM COT ASSEMBLER Sherlyn Alicea MD LAB BLOOD ORDERABLES F inal Result Performing Organization Address [facility] Co de Phone Number [facility] [place] [address] * (ABNORMAL) CBC without differential (06/04/2023 11:37 AM COT ASSEMBLER) [facility] WBC 7.6 3.8 - 9.9 K/cumm [facility] Hgb 8.2(L) 13.0 - 17.5 g/dL [facility] Hct 25.8(L) 38.9 - 50.3 % [facility] Plt 336 150 - 400 K/cumm [facility] MPV 8.7(L) 9.1 - 12.3 fL [facility] RBC 2.86(L) 4.30 - 5.80 M/cumm [facility] MCV 90.2 81.3 - 96.4 fL [facility] MCH 28.7 27.1 - 33.3 pg [facility] MCHC 31.8(L) 32.3 - 35.7 g/dL [facility] RDW CV 13.0 11.1 - 14.9 % [facility] RDW SD 43.1 35.7 - 48.1 fL [facility] NRBC abs 0.00 0.00 - 0.01 K/cumm [facility] Blood 06/04/2023 11:3 7 AM COT ASSEMBLER 06/04/2023 11:56 AM COT ASSEMBLER Alonzo Duncan MD LAB BLOOD ORDERABLES Fin al Result Performing Organization Address [facility] Co de Phone Number [facility] Department [place] [address] * (ABNORMAL) Basic metabolic panel (06/04/2023 11:37 AM COT ASSEMBLER) Sodium 140 135 - 145 mmol/L [facility] Potassium, pl 4.5 3.3 - 4.9 mmol/L [facility] Chloride 105 97 - 110 mmol/L [facility] CO2 23 22 - 32 mmol/L [facility] Anion gap 12 2 - 15 mmol/L [facility] BUN 17 6 - 25 mg/dL [facility] Creatinine 1.56(H) 0.80 - 1.30 mg/dL [facility] Glucose 111 70 - 199 mg/dL [facility] Comment: Interpretive Data Fasting glucose >/= 126 [...] Calcium 8.8 8.5 - 10.3 mg/dL [facility] Blood 06/04/2023 11:3 7 AM COT ASSEMBLER 06/04/2023 11:56 AM COT ASSEMBLER Alonzo Duncan MD LAB BLOOD ORDERABLES Fin al Result [facility] Department [place] [address] * (ABNORMAL) Basic metabolic panel (06/04/2023 6:09 AM COT ASSEMBLER) Sodium 140 135 - 145 mmol/L [facility] Potassium, pl 4.5 3.3 - 4.9 mmol/L [facility] Chloride 109 97 - 110 mmol/L [facility] CO2 22 22 - 32 mmol/L [facility] Anion gap 9 2 - 15 mmol/L [facility] BUN 16 6 - 25 mg/dL [facility] Creatinine 1.70(H) 0.80 - 1.30 mg/dL [facility] Glucose 126 70 - 199 mg/dL [facility] Comment: Interpretive Data Fasting glucose >/= 126 [...] Calcium 8.5 8.5 - 10.3 mg/dL [facility] Blood 06/04/2023 6:09 AM COT ASSEMBLER 06/04/2023 6:43 AM COT ASSEMBLER us Alonzo Duncan MD LAB BLOOD ORDERABLES Fin al Result Performing Organization Address City/[facility] Co de Phone Number [facility] Department [place] [address] * (ABNORMAL) eGFR (06/04/2023 6:09 AM COT ASSEMBLER) eGFR 55(L) >=60 mL/min/1. 73 m2 [facility] Comment: Interpretive Data Reference Interval Normal [...] last reviewed 2021. Blood 06/04/2023 6:09 AM COT ASSEMBLER 06/04/2023 6:45 AM COT ASSEMBLER us Alonzo Duncan MD LAB BLOOD ORDERABLES Fin al Result Performing Organization Address City/[facility]/ZIP Co de Phone Number [facility] Department [place] [address] * Lactate, whole blood (06/04/2023 6:09 AM COT ASSEMBLER) Lactate, bld 1.7 0.7 - 2.0 mmol/L [facility] Blood 06/04/2023 6:09 AM COT ASSEMBLER 06/04/2023 6:17 AM COT ASSEMBLER us Sherlyn Alicea MD LAB BLOOD ORDERABLES F inal Result [facility] Department [place] [address] * (ABNORMAL) CBC without differential (06/04/2023 6:09 AM COT ASSEMBLER) Pathologist [facility] WBC 8.8 3.8 - 9.9 K/cumm [facility] Hgb 8.2(L) 13.0 - 17.5 g/dL [facility] Hct 25.8(L) 38.9 - 50.3 % [facility] Plt 347 150 - 400 K/cumm [facility] MPV 8.9(L) 9.1 - 12.3 fL [facility] RBC 2.89(L) 4.30 - 5.80 M/cumm [facility] MCV 89.3 81.3 - 96.4 fL [facility] MCH 28.4 27.1 - 33.3 pg [facility] MCHC 31.8(L) 32.3 - 35.7 g/dL [facility] RDW CV 13.0 11.1 - 14.9 % [facility] RDW SD 42.8 35.7 - 48.1 fL [facility] NRBC abs 0.00 0.00 - 0.01 K/cumm [facility] Blood 06/04/2023 6:09 AM COT ASSEMBLER 06/04/2023 6:37 AM COT ASSEMBLER us Alonzo Duncan MD LAB BLOOD ORDERABLES Fin al Result [facility] Department [place] [address] * (ABNORMAL) Phosphorus (06/04/2023 6:09 AM COT ASSEMBLER) Pathologist [facility] Phosphorus, pl 4.6(H) 2.3 - 4.5 mg/dL [facility] Blood 06/04/2023 6:09 AM COT ASSEMBLER 06/04/2023 6:43 AM COT ASSEMBLER Alonzo Duncan MD LAB BLOOD ORDERABLES Fin al Result Performing Organization Address City/[facility] Co de Phone Number [facility] [employer] [place] [address] * Magnesium (06/04/2023 6:09 AM COT ASSEMBLER) Magnesium 2.5 1.4 - 2.5 mg/dL [facility] Blood 06/04/2023 6:09 AM COT ASSEMBLER 06/04/2023 6:43 AM COT ASSEMBLER Result [facility] Alonzo Duncan MD LAB BLOOD ORDERABLES Fin al Result Performing Organization Address [facility] de Phone Number [facility] [employer] [place] [address] * (ABNORMAL) Blood gas, arterial (06/04/2023 2:33 AM COT ASSEMBLER) Pathologist [facility] pH, Art 7.35 7.35 - 7.45 [facility] PCO2, Arterial 44 35 - 45 mmHg [facility] PO2, Arterial 73(L) 83 - 108 mmHg [facility] HCO3 Art (Calculated) 25 20 - 30 mmol/L [facility] BE, art -1 mmol/L [facility] Comment: Interpretive Data No Reference Range Established Current Interpretive Data was last revised on 2017 O2 Sat Art (Measured) 94 90 - 95 % [facility] Blood 06/04/2023 2:33 AM COT ASSEMBLER 06/04/2023 2:39 AM COT ASSEMBLER Alonzo Duncan MD LAB BLOOD ORDERABLES Fin al Result Performing Organization Address [facility] Co de Phone Number [facility] [employer] [place] [address] * aPTT (06/04/2023 1:54 AM COT ASSEMBLER) aPTT 35 28 - 38 sec [facility] Comment: Interpretive Data Heparin therapeutic range: 66.0 - 100.0 seconds. Range based on correlation with therapeutic heparin activity range of 0.3 - 0.7 Units/mL. Current interpretive data was last revised on 2023. Blood 06/04/2023 1:54 AM COT ASSEMBLER 06/04/2023 2:09 AM COT ASSEMBLER Alonzo Duncan MD LAB BLOOD ORDERABLES Fin al Result Performing Organization Address [facility] de Phone Number [facility] [place] [address] * (ABNORMAL) Protime-INR (06/04/2023 1:54 AM COT ASSEMBLER) PT 15.8(H) 10.3 - 13.7 sec [facility] INR 1.39(H) 0.90 - 1.20 [facility] Comment: Interpretive data Oral anticoagulant therapeutic ranges: Venous thromboembolism prophylaxis or treatment: 2.0-3.0 CARDIOLOGY Standard range: 2.0-3.0 High-intensity range: 2.5-3.5 Refer to indication-specific guidelines for appropriate target ranges for prosthetic heart valve replacement. Current interpretive data was last revised on 2019. Blood 06/04/2023 1:54 AM COT ASSEMBLER 06/04/2023 2:09 AM COT ASSEMBLER Alonzo Duncan MD LAB BLOOD ORDERABLES Fin al Result Performing Organization Address [facility] de Phone Number [facility] Department [place] [address] * Type and screen (06/04/2023 1:54 AM COT ASSEMBLER) Ellen, indirect Negative ABO Rh A Positive [facility] Blood 06/04/2023 1:54 AM COT ASSEMBLER 06/04/2023 2:06 AM COT ASSEMBLER Narrative [facility] - 06/04/2023 3:04 AM COT ASSEMBLER Has the patient had Daratumumab or Isatuximab in the past 6 months?->Unknown us Alonzo Duncan MD LAB BLOOD BANK TEST SHAUNA LOPEZ Final Result [facility] Department [place] [address] * [place] ARTL CATHJ/CANNULJ MNTR/TRANSFUSION SPX PRQ (06/04/2023 1:26 AM COT ASSEMBLER) Narrative Mehul Brooks MD - 06/04/2023 1:26 AM COT ASSEMBLER Sherlyn Alicea MD ? 06/04/2023 ??1:31 AM Arterial Line Insertion Date/Time: 06/04/2023 1:26 AM Performed by: Michael Hamm MD Authorized by: Mehul Brooks MD ?? [place] Protocol: RN Notified of Procedure: yes ?? Informed consent: ??Risks, benefits, alternatives discussed and patient/technical account representative/guardian agrees and accepts Patient's stated name/ [...] * Lactate, whole blood (06/04/2023 1:00 AM COT ASSEMBLER) Lactate, bld 1.5 0.7 - 2.0 mmol/L [facility] Blood 06/04/2023 1:00 AM COT ASSEMBLER 06/04/2023 1:04 AM COT ASSEMBLER us Sherlyn Alicea MD LAB BLOOD ORDERABLES F inal Result [facility] Department [place] [address] * eGFR (06/04/2023 12:42 AM COT ASSEMBLER) eGFR 89 >=60 mL/min/1. 73 m2 [facility] Comment: Interpretive Data Reference Interval Normal [...] reviewed 2021. Blood 06/04/2023 12:4 2 AM COT ASSEMBLER 06/04/2023 12:49 AM COT ASSEMBLER us Alonzo Duncan MD LAB BLOOD ORDERABLES Fin al Result Performing Organization Address [facility] de Phone Number [facility] Department [place] [address] * (ABNORMAL) CBC without differential (06/04/2023 12:42 AM COT ASSEMBLER) Pathologist [facility] WBC 8.9 3.8 - 9.9 K/cumm [facility] Hgb 9.2(L) 13.0 - 17.5 g/dL [facility] Hct 28.6(L) 38.9 - 50.3 % [facility] Plt 369 150 - 400 K/cumm [facility] MPV 9.0(L) 9.1 - 12.3 fL [facility] RBC 3.22(L) 4.30 - 5.80 M/cumm [facility] MCV 88.8 81.3 - 96.4 fL [facility] MCH 28.6 27.1 - 33.3 pg [facility] MCHC 32.2(L) 32.3 - 35.7 g/dL [facility] RDW CV 12.9 11.1 - 14.9 % [facility] RDW SD 42.2 35.7 - 48.1 fL [facility] NRBC abs 0.00 0.00 - 0.01 K/cumm [facility] Blood 06/04/2023 12:4 2 AM COT ASSEMBLER 06/04/2023 1:09 AM COT ASSEMBLER Alonzo Duncan MD LAB BLOOD ORDERABLES Fin al Result Performing Organization Address [facility] Co de Phone Number [facility] Department [place] [address] * Calcium, ionized (06/04/2023 12:42 AM COT ASSEMBLER) Pathologist [facility] Calcium, Ionized 4.63 4.50 - 5.10 mg/dL [facility] Blood 06/04/2023 12:4 2 AM COT ASSEMBLER 06/04/2023 12:49 AM COT ASSEMBLER Alonzo Duncan MD LAB BLOOD ORDERABLES Fin al Result Performing Organization Address [facility] [place] [address] * Magnesium (06/04/2023 12:42 AM COT ASSEMBLER) Pathologist [facility] Magnesium 1.8 1.4 - 2.5 mg/dL [facility] Blood 06/04/2023 12:4 2 AM COT ASSEMBLER 06/04/2023 12:49 AM COT ASSEMBLER Alonzo Duncan MD LAB BLOOD ORDERABLES Fin al Result Performing Organization Address [facility] de Phone Number [facility] [place] [address] * Phosphorus (06/04/2023 12:42 AM COT ASSEMBLER) Pathologist [facility] Phosphorus, pl 4.0 2.3 - 4.5 mg/dL [facility] Blood 06/04/2023 12:4 2 AM COT ASSEMBLER 06/04/2023 12:49 AM COT ASSEMBLER Alonzo Duncan MD LAB BLOOD ORDERABLES Fin al Result Performing Organization Address [facility] de Phone Number [facility] [place] [address] * Basic metabolic panel (06/04/2023 12:42 AM COT ASSEMBLER) Sodium 141 135 - 145 mmol/L [facility] Potassium, pl 3.6 3.3 - 4.9 mmol/L [facility] Chloride 106 97 - 110 mmol/L [facility] CO2 24 22 - 32 mmol/L [facility] Anion gap 11 2 - 15 mmol/L [facility] BUN 13 6 - 25 mg/dL [facility] Creatinine 1.13 0.80 - 1.30 mg/dL [facility] Glucose 103 70 - 199 mg/dL [facility] Comment: Interpretive Data Fasting glucose >/= 126 [...] Calcium 8.9 8.5 - 10.3 mg/dL [facility] Blood 06/04/2023 12:4 2 AM COT ASSEMBLER 06/04/2023 12:49 AM COT ASSEMBLER us Alonzo Duncan MD LAB BLOOD ORDERABLES Fin al Result [facility] Department [place] [address] * [place] CRITICAL CARE ILL/INJURED PATIENT INIT 30-74 MIN (06/03/2023 10:14 PM COT ASSEMBLER) Narrative Tressa Sorensen MD - 06/03/2023 10:14 PM COT ASSEMBLER Tressa Sorensen MD ? 06/03/2023 10:15 PM [...] (ABNORMAL) Urinalysis, microscopic only (06/03/2023 10:07 PM COT ASSEMBLER) WBC, ur 0-5 0 - 5 /HPF [facility] RBC, ur 0-2 0 - 2 /HPF [facility] Epithelial cells, squamous, ur 1-5 0 - 5 /HPF [facility] Bacteria, ur 1+(A) [facility] Mucous, ur Present(A) [facility] Urine 06/03/2023 10:0 7 PM COT ASSEMBLER 06/03/2023 10:14 PM COT ASSEMBLER us Tressa Sorensen MD LAB URINE ORDERABLES Final Re sult Performing Organization Address [facility] Co de Phone Number [facility] [employer] [place] [address] * Lactate (06/03/2023 10:07 PM COT ASSEMBLER) Lactate 1.0 0.7 - 2.0 mmol/L [facility] Blood 06/03/2023 10:0 7 PM COT ASSEMBLER 06/03/2023 10:22 PM COT ASSEMBLER us Tressa Sorensen MD LAB BLOOD ORDERABLES Final Re sult Performing Organization Address [facility]/ZIP Co de Phone Number [facility] Department [place] [address] * Troponin I high-sensitivity 4-hour (06/03/2023 10:07 PM COT ASSEMBLER) Trop I hs 10 <=35 ng/L [facility] Comment: Interpretive Data For further [facility] resources including the diagnostic algorithm and an aid in interpretation, copy and paste this link: https://bjhlab.testcatalog.org/show/[email or web address] Current Interpretive Data last revised 2019. Trop I hs delta 2 ng/L [facility] Trop I hs interp Insignificant [facility] Blood 06/03/2023 10:0 7 PM COT ASSEMBLER 06/03/2023 10:22 PM COT ASSEMBLER us Deandre Niño MD LAB BLOOD ORDERABLES Final Resul t [facility] Department [place] [address] * (ABNORMAL) Urinalysis reflex to microscopic (06/03/2023 10:07 PM COT ASSEMBLER) Color, ur Straw Yellow [facility] Clarity, ur Clear Clear [facility] Specific gravity, ur >1.042(H) 1.003 - 1.030 [facility] pH, urine 6.5 [facility] Comment: Interpretive Data ? Urine pH is affected by diet, medications, systemic acid-base disturbances, and renal tubular function. ??pH may affect urinary stone formation. ??For example, urine pH below 6.0 may help reduce the tendency for calcium phosphate stones and pH greater than 6.0 may reduce the tendency for uric acid stone formation. Source: [employer] Current Interpretive Data was last revised on 2017 Protein, ur ql 1+(A) Negative [facility] Glucose, ur ql Trace(A) Negative [facility] Ketones, ur Negative Negative [facility] Bilirubin, ur Negative Negative [facility] Blood, ur Trace(A) Negative [facility] Urobilinogen, ur <2.0 <2.0 mg/dL [facility] Nitrite, ur Negative Negative [facility] Leukocyte esterase, ur Negative Negative [facility] UA reflex comment Reflex to microscopic UA will be performed. [facility] Urine 06/03/2023 10:0 7 PM COT ASSEMBLER 06/03/2023 10:14 PM COT ASSEMBLER us Tressa Sorensen MD LAB URINE ORDERABLES Final Re sult Performing Organization Address [facility] Co de Phone Number [facility] [place] [address] * Troponin I high-sensitivity 2-hour (06/03/2023 8:21 PM COT ASSEMBLER) Trop I hs 11 <=35 ng/L [facility] Comment: Interpretive Data For further hscTnI resources including the diagnostic algorithm and an aid in interpretation, copy and paste this link: https://bjhlab.testcatalog.org/show/hsTrop-1 Current Interpretive Data last revised 2019. Trop I hs delta 3 ng/L [facility] Trop I hs interp Insignificant [facility] Blood 06/03/2023 8:21 PM COT ASSEMBLER 06/03/2023 8:37 PM COT ASSEMBLER us Deandre Niño MD LAB BLOOD ORDERABLES Final Resul t Performing Organization Address [facility] de Phone Number [facility] [place] [address] * CTA Chest Abdomen Pelvis (06/03/2023 7:19 PM COT ASSEMBLER) Anatomical Region Laterality Modality Body N/A Computed Tomogra phy 06/03/2023 7:59 PM COT ASSEMBLER Impressions 06/03/2023 9:13 PM COT ASSEMBLER 1. ??Changes of type B aortic dissection [...] Telly Baker M.D. Narrative 06/03/2023 9:13 PM COT ASSEMBLER EXAMINATION: CT ANGIOGRAPHY OF THE CHEST, ABDOMEN [...] by: Telly Baker M.D. Michael Cortes MD [facility] CT PROCEDURES Final Resul t * POCUS Retroperitoneal (AAA or Renal) (06/03/2023 6:53 PM COT ASSEMBLER) Anatomical Region Laterality Modality Other 06/03/2023 6:39 PM COT ASSEMBLER Narrative 06/06/2023 9:46 AM COT ASSEMBLER Performed by: Nakita Holguin Aorta v3 : [...] Renal/Bladder: Exam Information: Exam type: Diagnostic us rTessa Sorensen MD POCUS ORDERABLES Final Result * POCT creatinine (06/03/2023 6:36 PM COT ASSEMBLER) Creatinine POC 1.1 0.7 - 1.3 mg/dL [facility] Blood 06/03/2023 6:36 PM COT ASSEMBLER 06/03/2023 6:36 PM COT ASSEMBLER us Tressa Sorensen MD LAB POCT ORDERABLES - DEVICE Final Result Performing Organization Address [facility] de Phone Number [facility] Department [place] [address] * eGFR (06/03/2023 6:30 PM COT ASSEMBLER) eGFR 85 >=60 mL/min/1. 73 m2 [facility] Comment: Interpretive Data Reference Interval Normal [...] last reviewed 2021. Blood 06/03/2023 6:30 PM COT ASSEMBLER 06/03/2023 6:46 PM COT ASSEMBLER us Deandre Niño MD LAB BLOOD ORDERABLES Final Resul t Performing Organization Address [facility] Co de Phone Number [facility] Department [place] [address] * Differential, auto (06/03/2023 6:30 PM COT ASSEMBLER) Neutrophil abs 6.3 1.5 - 6.5 K/cumm [facility] Imm gran abs 0.1 0.0 - 0.1 K/cumm [facility] Lymphocyte abs 1.8 0.8 - 3.3 K/cumm [facility] Monocyte abs 0.6 0.2 - 0.8 K/cumm [facility] Eosinophil abs 0.0 0.0 - 0.5 K/cumm [facility] Basophil abs 0.1 0.0 - 0.1 K/cumm [facility] Neutrophil pct 71.2 % [facility] Comment: Interpretive Data Percent cell count reference ranges are not reported, since discordance with absolute values may lead to misinterpretation of CBC data. Current Interpretive Data was last revised on 2017. Imm gran pct 0.7 % [facility] Comment: Interpretive Data Percent cell count reference ranges are not reported, since discordance with absolute values may lead to misinterpretation of CBC data. Current Interpretive Data was last revised on 2017. Lymphocyte pct 19.8 % [facility] Comment: Interpretive Data Percent cell count reference ranges are not reported, since discordance with absolute values may lead to misinterpretation of CBC data. Current Interpretive Data was last revised on 2017. Monocyte pct 7.2 % [facility] Comment: Interpretive Data Percent cell count reference ranges are not reported, since discordance with absolute values may lead to misinterpretation of CBC data. Current Interpretive Data was last revised on 2017. Eosinophil pct 0.5 % [facility] Comment: Interpretive Data Percent cell count reference ranges are not reported, since discordance with absolute values may lead to misinterpretation of CBC data. Current Interpretive Data was last revised on 2017. Basophil pct 0.6 % [facility] Comment: Interpretive Data Percent cell count reference ranges are not reported, since discordance with absolute values may lead to misinterpretation of CBC data. Current Interpretive Data was last revised on 2017. Blood 06/03/2023 6:30 PM COT ASSEMBLER 06/03/2023 6:36 PM COT ASSEMBLER Deandre Niño MD LAB BLOOD ORDERABLES Final Resul t Performing Organization Address [facility] Co de Phone Number [facility] [place] [address] * Troponin I high-sensitivity series (baseline, 2hr, 4hr, 6hr) (06/03/2023 6:30 PM COT ASSEMBLER) Trop I hs 8 <=35 ng/L [facility] Comment: Interpretive Data For further hscTnI resources including the diagnostic algorithm and an aid in interpretation, copy and paste this link: [email or web address]/[email or web address] Current Interpretive Data last revised 2019. Blood 06/03/2023 6:30 PM COT ASSEMBLER 06/03/2023 6:36 PM COT ASSEMBLER us Tressa Sorensen MD LAB BLOOD ORDERABLES Final Re sult Performing Organization Address [facility] [place] [address] * Lipase (06/03/2023 6:30 PM COT ASSEMBLER) Pathologist [facility] Lipase 40 10 - 99 Units/L [facility] Blood (Blood, Venous) 06/03/2023 6:30 PM COT ASSEMBLER 06/03/2023 6:36 PM COT ASSEMBLER Tressa Sorensen MD LAB BLOOD ORDERABLES Final Re sult Performing Organization Address [facility] [place] [address] * (ABNORMAL) Comprehensive metabolic panel (06/03/2023 6:30 PM COT ASSEMBLER) Pathologist [facility] Sodium 142 135 - 145 mmol/L [facility] Potassium, pl 3.6 3.3 - 4.9 mmol/L [facility] Chloride 105 97 - 110 mmol/L [facility] CO2 25 22 - 32 mmol/L [facility] Anion gap 12 2 - 15 mmol/L [facility] BUN 13 6 - 25 mg/dL [facility] Creatinine 1.17 0.80 - 1.30 mg/dL [facility] Glucose 130 70 - 199 mg/dL [facility] Comment: Interpretive Data Fasting glucose >/= 126 [...] Calcium 9.9 8.5 - 10.3 mg/dL [facility] Bilirubin, total 0.3 0.1 - 1.2 mg/dL [facility] Protein, pl 9.3(H) 6.5 - 8.5 g/dL [facility] Albumin 4.1 3.5 - 5.0 g/dL [facility] Alk phos 116 40 - 130 Units/L [facility] ALT 19 7 - 55 Units/L [facility] AST 10 10 - 50 Units/L [facility] Blood 06/03/2023 6:30 PM COT ASSEMBLER 06/03/2023 6:36 PM COT ASSEMBLER us Tressa Sorensen MD LAB BLOOD ORDERABLES Final Re sult [facility] Department of Laboratories [place], [place] [id number] * (ABNORMAL) CBC with auto differential (06/03/2023 6:30 PM COT ASSEMBLER) WBC 8.9 3.8 - 9.9 K/cumm [facility] Hgb 10.8(L) 13.0 - 17.5 g/dL [facility] Hct 33.2(L) 38.9 - 50.3 % [facility] Plt 399 150 - 400 K/cumm [facility] MPV 9.1 9.1 - 12.3 fL [facility] RBC 3.73(L) 4.30 - 5.80 M/cumm [facility] MCV 89.0 81.3 - 96.4 fL [facility] MCH 29.0 27.1 - 33.3 pg [facility] MCHC 32.5 32.3 - 35.7 g/dL [facility] RDW CV 12.9 11.1 - 14.9 % [facility] RDW SD 41.5 35.7 - 48.1 fL [facility] NRBC abs 0.00 0.00 - 0.01 K/cumm [facility] Blood (Blood, Venous) 06/03/2023 6:30 PM COT ASSEMBLER 06/03/2023 6:36 PM COT ASSEMBLER us Tressa Sorensen MD LAB BLOOD ORDERABLES Final Re sult [facility] Department [place] [address] * ECG 12-LEAD (06/03/2023 6:18 PM COT ASSEMBLER) Narrative [facility] - 06/03/2023 6:18 PM COT ASSEMBLER Michael Cortes MD ? 06/03/2023 ??6:19 PM [...] Dec 15 ECG Michael Cortes MD 06/03/23 3251 us Tressa Sorensen MD ECG ORDERABLES Final Result [facility] documented in [...] For 31 doses Given 06/11/2023 11:12 AM COT ASSEMBLER 1,000 mg Given 06/11/2023 6:10 AM COT ASSEMBLER 1,000 mg Given 06/11/2023 12:16 AM COT ASSEMBLER 1,000 mg amLODIPine (NORVASC) tablet 10 mg 10 mg, oral, Daily, First dose on 06/04/23 at 0315, On hold since 06/05/2023 at 1333 until manually unheld Given 06/04/2023 2:43 AM COT ASSEMBLER 10 mg amLODIPine (NORVASC) tablet 5 mg 5 mg, oral, Daily, First dose on Catarina 06/09/23 at 1215 Given 06/11/2023 8:22 AM COT ASSEMBLER 5 mg Given 06/10/2023 7:15 AM COT ASSEMBLER 5 mg Given 06/09/2023 1:24 PM COT ASSEMBLER 5 mg aspirin chewable tablet 81 mg 81 mg, oral, Daily, First dose on Tue06/07/23 at 1115 Given 06/11/2023 8:22 AM COT ASSEMBLER 81 mg Given 06/10/2023 7:15 AM COT ASSEMBLER 81 mg Given 06/09/2023 8:52 AM COT ASSEMBLER 81 mg bisacodyL (DULCOLAX) suppository 10 mg 10 mg, rectal, Daily, First dose on Tue06/08/23 at 1100, Indications: constipationIndications:constipation Carrier Fluids for Secondary Infusion - 0.9% Sodium Chloride 30 mL, intravenous, As needed, For priming tubing and/or flushing, Starting on Tue06/04/23 at 0008 Given 06/06/2023 1:40 AM COT ASSEMBLER 30 mL Carrier Fluids for Secondary Infusion [...] Tue06/04/23 at 0800 Given 06/04/2023 8:02 AM COT ASSEMBLER 12.5 mg carvediloL (COREG) tablet 12.5 mg 12.5 mg, oral, Once, On Tue06/04/23 at 1115, For 1 dose Given 06/04/2023 11:02 AM COT ASSEMBLER 12.5 mg carvediloL (COREG) tablet 12.5 mg 12.5 mg, oral, 2 times daily with meals (bkfst, dinner), First dose (after last modification) on Tue06/07/23 at 1930 Given 06/07/2023 8:17 PM COT ASSEMBLER 12.5 mg carvediloL (COREG) tablet 12.5 mg 12.5 mg, oral, 2 times daily with meals (bkfst, dinner), First dose (after last modification) on 06/09/23 at 0800 Given 06/10/2023 7:15 AM COT ASSEMBLER 12.5 mg Given 06/09/2023 5:39 PM COT ASSEMBLER 12.5 mg Given 06/09/2023 8:52 AM COT ASSEMBLER 12.5 mg carvediloL (COREG) tablet 25 mg 25 mg, oral, Once, On 06/04/23 at 0300, For 1 dose Given 06/04/2023 2:43 AM COT ASSEMBLER 25 mg carvediloL (COREG) tablet 25 mg 25 mg, oral, 2 times daily with meals (bkfst, dinner), First dose (after last modification) on Tue06/08/23 at 0800 Given 06/08/2023 5:25 PM COT ASSEMBLER 25 mg Given 06/08/2023 8:21 AM COT ASSEMBLER 25 mg carvediloL (COREG) tablet 25 mg 25 mg, oral, 2 times daily with meals (bkfst, dinner), First dose (after last modification) on Tue06/10/23 at 1800 Given 06/11/2023 8:22 AM COT ASSEMBLER 25 mg Given 06/10/2023 5:29 PM COT ASSEMBLER 25 mg carvediloL (COREG) tablet 50 mg 50 mg, oral, 2 times daily with meals (bkfst, dinner), First dose (after last modification) on 06/04/23 at 1800, On hold since Tue06/05/2023 at 1333 until manually unheld Given 06/04/2023 5:26 PM COT ASSEMBLER 50 mg carvediloL (COREG) tablet 6.25 mg 6.25 mg, oral, Once, On 06/04/23 at 0045, For 1 dose Given 06/04/2023 12:45 AM COT ASSEMBLER 6.25 mg ceFAZolin (ANCEF) 2,000 mg/20 mL in sterile water (premix) 2,000 mg 2,000 mg, intravenous, at 400 mL/hr, Administer over 3 Minutes, Every 8 hours scheduled, First dose on Tue06/05/23 at 1830, For 24 hours, Indications: Prophylaxis, SurgicalIndications:Prophylaxis, Surgical Given 06/06/2023 1:52 PM COT ASSEMBLER 2,000 mg 400 mL/hr Given 06/06/2023 5:11 AM COT ASSEMBLER 2,000 mg 400 mL/hr Given 06/05/2023 6:29 PM COT ASSEMBLER 2,000 mg 400 mL/hr clevidipine (CLEVIPREX) 50 [...] hours., Routine New Bag 06/05/2023 1:33 PM COT ASSEMBLER 4 mg/hr 8 mL/hr Rate/Dose Change 06/05/2023 10:11 AM COT ASSEMBLER 8 mg/hr 16 mL/ hr Rate/Dose Change 06/05/2023 9:41 AM COT ASSEMBLER 16 mg/hr 32 mL/h r clevidipine (CLEVIPREX) [...] hours., Routine Rate/Dose Change 06/08/2023 12:53 AM COT ASSEMBLER 1 mg/hr 2 mL/hr Rate/Dose Change 06/08/2023 12:40 AM COT ASSEMBLER 2 mg/hr 4 mL/h r Rate/Dose Change 06/08/2023 12:35 AM COT ASSEMBLER 3 mg/hr 6 mL/h r docusate sodium (COLACE) capsule 100 mg 100 mg, oral, 2 times daily, First dose on 06/04/23 at 0045, Hold for diarrhea., Indications: constipationIndications:constipation Given 06/11/2023 8:23 AM COT ASSEMBLER 100 mg Given 06/08/2023 8:21 AM COT ASSEMBLER 100 mg Given 06/07/2023 8:17 PM COT ASSEMBLER 100 mg enoxaparin (LOVENOX) syringe 40 mg 40 mg, subcutaneous, Daily (for enoxaparin), First dose on Tue06/08/23 at 2100, Indications: Deep Vein Thrombosis PreventionIndications:Deep Vein Thrombosis Prevention Given 06/10/2023 8:44 PM COT ASSEMBLER 40 mg Left Lower Abdomen Given 06/09/2023 8:23 PM COT ASSEMBLER 40 mg Le ft Upper Arm Given 06/08/2023 8:39 PM COT ASSEMBLER 40 mg Ri ght Upper Arm esmolol [...] mmHg, STAT Rate/Dose Change 06/04/2023 12:07 AM COT ASSEMBLER 300 mcg/kg/min 179.6 mL/hr Rate/Dose Verify 06/04/2023 12:00 AM COT ASSEMBLER 250 mcg/kg/min 14 9.7 mL/hr Rate/Dose Verify 06/03/2023 11:51 PM COT ASSEMBLER 250 mcg/kg/min 14 9.7 mL/hr esmolol in [...] at goal., RoutineIndications:hypertension Restarted 06/05/2023 1:06 PM COT ASSEMBLER 100 mL/hr 100 mL/hr Rate/Dose Verify 06/05/2023 9:28 AM COT ASSEMBLER 179.6 m L/hr Rate/Dose Verify 06/05/2023 9:00 AM COT ASSEMBLER 300 mcg/kg/min 179 .6 mL/hr furosemide (LASIX) 10 mg/mL injection 20 mg 20 mg, intravenous, Once, On 06/04/23 at 1630, For 1 dose, Room temperature only Given 06/04/2023 4:06 PM COT ASSEMBLER 20 mg furosemide (LASIX) 10 mg/mL injection 40 mg 40 mg, intravenous, Once, On 06/05/23 at 0145, For 1 dose, For IV push: administer doses < 160 mg at a rate of 20 -40 mg/min. Doses >/= 160 mg should be administered no faster than 4 mg/min. Room temperature only Given 06/05/2023 1:19 AM COT ASSEMBLER 40 mg furosemide (LASIX) 200 mg in sodium chloride 0.9% 100 mL (2 mg/mL) infusion 15 mg/hr (7.5 mL/hr), 2 mg/mL, intravenous, Continuous, Starting on 06/04/23 at 1945, Until 06/05/23 at 1340, Room temperature only, Routine, On hold since Tue06/05/2023 at 0754 until manually unheld Rate/Dose Verify 06/05/2023 8:00 AM COT ASSEMBLER 15 mg/hr 7.5 mL/hr Rate/Dose Verify 06/05/2023 7:00 AM COT ASSEMBLER 15 mg/hr 7.5 mL/ hr Rate/Dose Verify 06/05/2023 6:00 AM COT ASSEMBLER 15 mg/hr 7.5 mL/ hr gabapentin (NEURONTIN) capsule 300 mg 300 mg, oral, 3 times daily, First dose on 06/04/23 at 0900 Given 06/11/2023 8:23 AM COT ASSEMBLER 300 mg Given 06/10/2023 8:44 PM COT ASSEMBLER 300 mg Given 06/10/2023 5:29 PM COT ASSEMBLER 300 mg heparin 5,000 unit/mL injection 5,000 Units 5,000 Units, subcutaneous, Every 8 hours scheduled, First dose on Tue06/06/23 at 1400, For 2 doses, Indications: Deep Vein Thrombosis PreventionIndications:Deep Vein Thrombosis Prevention Given 06/06/2023 8:59 PM COT ASSEMBLER 5,000 Units Left Lower Abdomen Given 06/06/2023 1:47 PM COT ASSEMBLER 5,000 Units L eft Upper Arm heparin 5,000 unit/mL injection 5,000 Units 5,000 Units, subcutaneous, Every 8 hours scheduled, First dose on Tue06/08/23 at 0600, Indications: Deep Vein Thrombosis PreventionIndications:Deep Vein Thrombosis Prevention Given 06/08/2023 5:00 AM COT ASSEMBLER 5,000 Units Left Upper Abdomen hydrALAZINE (APRESOLINE) injection 10 mg 10 mg, intravenous, Administer over 2 Minutes, Every 4 hours PRN, high blood pressure, for SBP > 160, Starting on Tue06/06/23 at 0946 Given 06/10/2023 2:17 PM COT ASSEMBLER 10 mg Given 06/10/2023 5:15 AM COT ASSEMBLER 10 mg Given 06/09/2023 11:43 PM COT ASSEMBLER 10 mg hydrALAZINE (APRESOLINE) tablet 25 mg 25 mg, oral, 3 times daily, First dose (after last modification) on Catarina 06/09/23 at 1600, Hold for SBP <140, Indications: hypertensionIndications:hypertension Given 06/10/2023 7:15 AM COT ASSEMBLER 25 mg Given 06/09/2023 8:23 PM COT ASSEMBLER 25 mg Given 06/09/2023 5:40 PM COT ASSEMBLER 25 mg hydrALAZINE (APRESOLINE) tablet 25 mg 25 mg, oral, 3 times daily, First dose on Tue06/11/23 at 0830, Indications: hypertensionIndications:hypertension Given 06/11/2023 8:23 AM COT ASSEMBLER 25 mg hydrALAZINE (APRESOLINE) tablet 50 mg 50 mg, oral, 3 times daily, First dose on Tue06/08/23 at 1100, Indications: hypertensionIndications:hypertension Given 06/09/2023 8:52 AM COT ASSEMBLER 50 mg Given 06/08/2023 8:39 PM COT ASSEMBLER 50 mg Given 06/08/2023 4:16 PM COT ASSEMBLER 50 mg HYDROmorphone (DILAUDID) 0.5 mg/0.5 mL injection - ADS Override Pull Starting on Tue06/05/23 at 1352, For 1 dose, Created by cabinet override HYDROmorphone (DILAUDID) injection 0.5 mg 0.5 mg, intravenous, Administer over 2 Minutes, Once, On Tue06/05/23 at 1430, For 1 dose Given 06/05/2023 1:54 PM COT ASSEMBLER 0.5 mg HYDROmorphone (DILAUDID) injection 0.5 mg 0.5 mg, intravenous, Administer over 2 Minutes, Once, On Tue06/05/23 at 1445, For 1 dose Given 06/05/2023 2:12 PM COT ASSEMBLER 0.5 mg HYDROmorphone (DILAUDID) injection 0.5 mg 0.5 mg, intravenous, Administer over 2 Minutes, Every 2 hours PRN, breakthrough pain, Starting on Tue06/07/23 at 0900 Given 06/08/2023 12:23 PM COT ASSEMBLER 0.5 mg Given 06/08/2023 8:31 AM COT ASSEMBLER 0.5 mg Given 06/08/2023 4:57 AM COT ASSEMBLER 0.5 mg HYDROmorphone (DILAUDID) injection 1 mg 1 mg, intravenous, Administer over 2 Minutes, Every 3 hours PRN, 1st line for pain, Starting on Tue06/03/23 at 1956 Given 06/03/2023 8:16 PM COT ASSEMBLER 1 mg HYDROmorphone (DILAUDID) injection 1 mg 1 mg, intravenous, Administer over 2 Minutes, Every 2 hours PRN, 1st line for pain, Starting on Tue06/03/23 at 2214 Given 06/03/2023 10:16 PM COT ASSEMBLER 1 mg HYDROmorphone in 0.9% sodium chloride (DILAUDID) 20 mg/100 mL (0.2 mg/mL) (premix) Continuous: none, FLIGHT OPERATION COORDINATOR dose: 0.2 mg, FLIGHT OPERATION COORDINATOR lockout: 10 Minutes, 1 hour limit: 1.2 mg, intravenous, Continuous, Starting on 06/04/23 at 0045, Until 06/04/23 at 1612, 100 mL, Indications: Pain, RoutineIndications:Pain New Syringe/Cartridge 06/04/2023 12:28 AM COT ASSEMBLER HYDROmorphone in 0.9% sodium chloride (DILAUDID) 20 mg/100 mL (0.2 mg/mL) (premix) Continuous: none, FLIGHT OPERATION COORDINATOR dose: 0.5 mg, FLIGHT OPERATION COORDINATOR lockout: 10 Minutes, 1 hour limit: 3 mg, intravenous, Continuous, Starting on 06/04/23 at 1645, Until Tue06/07/23 at 0901, 100 mL, Indications: Pain, RoutineIndications:Pain New Syringe/Cartridge 06/07/2023 1:27 AM COT ASSEMBLER New Syringe/Cartridge 06/06/2023 8:52 AM COT ASSEMBLER New Syringe/Cartridge 06/05/2023 2:16 PM COT ASSEMBLER ioversoL (OPTIRAY 350) syringe 100 mL 100 mL, intravenous, Once in imaging, contrast, Starting on Tue06/03/23 at 1912, For 1 dose Contrast Given 06/03/2023 7:19 PM COT ASSEMBLER 92 mL ioversoL (OPTIRAY 350) syringe 125 mL 125 mL, intravenous, Once in imaging, contrast, Starting on Tue06/10/23 at 0821, For 1 dose Contrast Given 06/10/2023 8:34 AM COT ASSEMBLER 120 mL labetaloL (NORMODYNE,TRANDATE) injection 10 mg 10 mg, intravenous, at 60 mL/hr, Administer over 2 Minutes, Once, On Tue06/03/23 at 1919, For 1 dose Given 06/03/2023 7:24 PM COT ASSEMBLER 10 mg 60 mL/hr labetaloL (NORMODYNE,TRANDATE) injection 10 mg 10 mg, intravenous, at 60 mL/hr, Administer over 2 Minutes, Once, On Tue06/10/23 at 0230, For 1 dose Given 06/10/2023 2:12 AM COT ASSEMBLER 10 mg 60 mL/hr labetaloL (NORMODYNE,TRANDATE) injection 20 mg 20 mg, intravenous, at 120 mL/hr, Administer over 2 Minutes, Every 30 min PRN, high blood pressure, HR<60, SBP<120, Starting on 06/04/23 at 1303 Given 06/04/2023 1:43 PM COT ASSEMBLER 20 mg 120 mL/hr Given 06/04/2023 1:11 PM COT ASSEMBLER 20 mg 120 mL/hr labetaloL (NORMODYNE,TRANDATE) injection 40 mg 40 mg, intravenous, at 240 mL/hr, Administer over 2 Minutes, Every 30 min PRN, high blood pressure, HR<60, SBP<120, Starting on Tue06/04/23 at 1353 Given 06/04/2023 4:06 PM COT ASSEMBLER 40 mg 240 mL/hr Given 06/04/2023 3:14 PM COT ASSEMBLER 40 mg 240 mL/hr Given 06/04/2023 2:11 PM COT ASSEMBLER 40 mg 240 mL/hr labetaloL (NORMODYNE,TRANDATE) tablet 100 mg 100 mg, oral, Once, On Tue06/03/23 at 1920, For 1 dose Given 06/03/2023 7:45 PM COT ASSEMBLER 100 mg Lactated Ringer's (LR) infusion 10 mL/hr, intravenous, Continuous, Starting on Tue06/04/23 at 0045 Rate/Dose Verify 06/07/2023 9:00 AM COT ASSEMBLER 10 mL/hr 10 mL/hr Restarted 06/07/2023 8:26 AM COT ASSEMBLER 10 mL/hr 10 mL/hr Rate/Dose Verify 06/07/2023 6:00 AM COT ASSEMBLER 10 mL/hr 10 mL/h r magnesium citrate oral solution 148 mL 148 mL, oral, Once, On Tue06/08/23 at 1100, For 1 dose Given 06/08/2023 11:17 AM COT ASSEMBLER 148 mL magnesium sulfate 2 g/50 mL in water (premix) 2 g 2 g, intravenous, Administer over 60 Minutes, Once, On Tue06/04/23 at 0230, For 1 dose New Bag 06/04/2023 1:58 AM COT ASSEMBLER 2 g magnesium sulfate 4 g/100 mL in water (premix) 4 g 4 g, intravenous, Administer over 90 Minutes, Once, On Tue06/06/23 at 0200, For 1 dose New Bag 06/06/2023 1:40 AM COT ASSEMBLER 4 g methocarbamoL (ROBAXIN) tablet 750 mg 750 mg, oral, 3 times daily, First dose on Tue06/04/23 at 0100 Given 06/11/2023 8:23 AM COT ASSEMBLER 750 mg Given 06/10/2023 8:44 PM COT ASSEMBLER 750 mg Given 06/10/2023 5:29 PM COT ASSEMBLER 750 mg metoclopramide (REGLAN) 5 mg/mL injection 10 mg 10 mg, intravenous, Once, On Tue06/05/23 at 1445, For 1 dose, Please push slowly Given 06/05/2023 2:12 PM COT ASSEMBLER 10 mg morphine injection 4 mg 4 mg, intravenous, Administer over 4 Minutes, Once, On Tue06/03/23 at 1819, For 1 dose Given 06/03/2023 6:36 PM COT ASSEMBLER 4 mg niCARdipine in sodium chloride 0.9% [...] instructions., Routine Rate/Dose Change 06/04/2023 12:12 AM COT ASSEMBLER 2 mcg/kg/min 119.8 mL/hr Rate/Dose Verify 06/04/2023 12:00 AM COT ASSEMBLER 1.5 mcg/kg/min 89 .8 mL/hr Rate/Dose Verify 06/03/2023 11:51 PM COT ASSEMBLER 1.5 mcg/kg/min 89 .8 mL/hr niCARdipine in [...] RoutineIndications:hypert ension Rate/Dose Verify 06/04/2023 1:00 PM COT ASSEMBLER 2.5 mcg/kg/min 149.7 mL/hr Rate/Dose Change 06/04/2023 12:57 PM COT ASSEMBLER 2.5 mcg/kg/min 14 9.7 mL/hr Rate/Dose Change 06/04/2023 12:45 PM COT ASSEMBLER 2 mcg/kg/min 119. 8 mL/hr ondansetron (ZOFRAN) injection 4 mg 4 mg, intravenous, Administer over 2 Minutes, Every 6 hours PRN, nausea, vomiting, Starting on Tue06/04/23 at 0005, Administer no sooner than 6 hours after last dose. Given 06/10/2023 6:17 PM COT ASSEMBLER 4 mg Given 06/07/2023 9:11 AM COT ASSEMBLER 4 mg Given 06/06/2023 5:17 PM COT ASSEMBLER 4 mg oxyCODONE (ROXICODONE) tablet 10 mg 10 mg, oral, Every 4 hours PRN, 1st line for pain, Starting on Tue06/07/23 at 0900, Indications: PainIndications:Pain Given 06/11/2023 11:12 AM COT ASSEMBLER 10 mg Given 06/11/2023 7:14 AM COT ASSEMBLER 10 mg Given 06/11/2023 3:14 AM COT ASSEMBLER 10 mg polyethylene glycol (MIRALAX) packet 17 g 17 g, oral, Daily, First dose on Tue06/04/23 at 0900, Hold for diarrhea, Indications: constipationIndications:constipation Given 06/06/2023 8:09 AM COT ASSEMBLER 17 g polyethylene glycol (MIRALAX) packet 17 g 17 g, oral, 2 times daily, First dose (after last modification) on Tue06/07/23 at 0900, Hold for diarrhea, Indications: constipationIndications:constipation Given 06/11/2023 8:22 AM COT ASSEMBLER 17 g Given 06/08/2023 8:21 AM COT ASSEMBLER 17 g Given 06/07/2023 8:17 PM COT ASSEMBLER 17 g potassium chloride 20 mEq/260 mL in sodium chloride 0.9% (premix) 20 mEq 20 mEq, intravenous, Administer over 2 Hours, Once, On Tue06/06/23 at 0600, For 1 dose, Total dose = 60 mEq. Start immediately after first potassium chloride infusion ends., Indications: hypokalemiaIndications:hypokalem ia New Bag 06/06/2023 5:58 AM COT ASSEMBLER 20 mEq potassium chloride 40 mEq/520 mL in sodium chloride 0.9% (premix) 40 mEq 40 mEq, intravenous, at 130 mL/hr, Administer over 4 Hours, Once, On Tue06/06/23 at 0200, For 1 dose, Total dose = 60 mEq, Indications: hypokalemiaIndications:hypokalem ia New Bag 06/06/2023 1:40 AM COT ASSEMBLER 40 mEq 130 mL/hr potassium chloride ER (KLOR-CON) extended release tablet 40 mEq 40 mEq, oral, Once, On Tue06/06/23 at 1100, For 1 dose, Tablets should not be crushed, chewed, dissolved, or otherwise manipulated. Capsules may be opened and sprinkled on a spoonful of applesauce or pudding, but the contents of the capsule should not be crushed or chewed. Given 06/06/2023 11:21 AM COT ASSEMBLER 40 mEq potassium chloride ER (KLOR-CON) extended release tablet 40 mEq 40 mEq, oral, Once, On Tue06/08/23 at 0130, For 1 dose, Tablets should not be crushed, chewed, dissolved, or otherwise manipulated. Capsules may be opened and sprinkled on a spoonful of applesauce or pudding, but the contents of the capsule should not be crushed or chewed. Given 06/08/2023 4:57 AM COT ASSEMBLER 40 mEq potassium, sodium phosphates (PHOS-NAK) 280-160-250 [...] mg (6.9 mEq). Given 06/07/2023 5:01 PM COT ASSEMBLER 2 packets Given 06/07/2023 11:11 AM COT ASSEMBLER 2 packets Given 06/07/2023 8:14 AM C[employer] 2 packets prochlorperazine (COMPAZINE) injection 5 mg 5 mg, intravenous, Administer over 2 Minutes, Once, On Tue06/04/23 at 0900, For 1 dose Given 06/04/2023 8:36 AM [employer] 5 mg prochlorperazine (COMPAZINE) injection 5 mg 5 mg, intravenous, Administer over 2 Minutes, Every 6 hours PRN, nausea, vomiting, Starting on Tue06/05/23 at 2234 Given 06/07/2023 9:56 AM [employer] 5 mg Given 06/05/2023 10:39 PM [employer]ER 5 mg QUEtiapine (SEROquel) tablet 50 mg 50 mg, oral, Nightly, First dose on Tue06/07/23 at 2100 Given 06/10/2023 8:44 PM [employer] 50 mg Given 06/09/2023 8:22 PM C[employer]ER 50 mg Given 06/08/2023 8:39 PM COT ASSEMBLER 50 mg ramelteon (ROZEREM) tablet 8 mg 8 mg, oral, Nightly PRN, sleep, Starting on Tue06/08/23 at 1021, Indications: Sleep-Onset InsomniaIndications:Sleep-Onset Insomnia senna (SENOKOT) tablet 1 tablet 1 tablet, oral, 2 times daily, First dose on 06/04/23 at 0045, Hold for diarrhea., Indications: constipationIndications:constipation Given 06/11/2023 8:22 AM COT ASSEMBLER 1 table t Given 06/08/2023 8:21 AM COT ASSEMBLER 1 tablet Given 06/07/2023 8:17 PM COT ASSEMBLER 1 tablet sodium chloride (OCEAN) 0.65 % [...] type and size. Given 06/10/2023 8:44 PM COT ASSEMBLER 10 mL Given 06/10/2023 5:15 AM COT ASSEMBLER 10 mL Given 06/09/2023 10:10 PM COT ASSEMBLER 10 mL sodium chloride 0.9% flush 0.5-20 [...] transfusion complete. New Bag 06/05/2023 9:15 AM COT ASSEMBLER 30 mL sodium chloride 0.9% solution 3-12 mL/hr, intra-catheter, Continuous, Starting on 06/04/23 at 0045, Amount needed for invasive pressure monitoring with 300 mg Hg to maintain patency. Rate/Dose Verify 06/08/2023 10:00 AM COT ASSEMBLER 3 mL/hr 3 mL/hr Rate/Dose Verify 06/08/2023 9:00 AM COT ASSEMBLER 3 mL/hr 3 mL/hr Rate/Dose Verify 06/08/2023 8:00 AM COT ASSEMBLER 3 mL/hr 3 mL/hr tamsulosin (FLOMAX) extended release capsule 0.4 mg 0.4 mg, oral, Daily with dinner, First dose (after last modification) on 06/04/23 at 0400, Do not crush, chew, cut, dissolve, open or otherwise manipulate tablet/capsule. Given 06/04/2023 5:16 AM COT ASSEMBLER 0.4 mg tamsulosin (FLOMAX) extended release capsule 0.8 mg 0.8 mg, oral, Daily with dinner, First dose (after last modification) on 06/04/23 at 1800, Do not crush, chew, cut, dissolve, open or otherwise manipulate tablet/capsule. Given 06/10/2023 5:29 PM COT ASSEMBLER 0.8 mg Given 06/09/2023 5:40 PM COT ASSEMBLER 0.8 mg Given 06/08/2023 5:25 PM COT ASSEMBLER 0.8 mg documented in this encounter Discontinued Medications Medication Sig Discontinue Reason Start Date End Da te carvediloL (COREG) 12.5 mg tablet Take 1 tablet (12.5 mg total) by mouth 2 (two) times a day Stop Taking at Discharge 05/16/2023 06/11/2023 documented as of this encounter Active and Recently Administered Medications Times are shown in COT ASSEMBLER. Scheduled Medication Order 06/09/2023 06/10/2023 06/11/2023 acetaminophen [...] 0830, Indications: hypertension 0823 (Given - Provider: iRta Braden RN) hydrALAZINE (APRESOLINE) tablet 50 mg [...] 06/05/2023 documented in this encounter Care Teams Senior Software Quality Analyst Relationship Specialty Start Date End Date Unknown, Notinfile PCP - General 04/30/23 06/05/23 Carl Strickland MD [address] [facility] [address] [place] [address] PCP - General Internal Medicine 06/06/23 Leo Manzaon MD [address] [facility] [id number] [place] [address] Surgeon Vascular Surgery 05/16/23 documented as of this encounter
--- OUTSIDE RECORDS SUMMARY | 2024-05-30 06:30 | XMS_ITS | Encounter Summary ---
Author Organization [facility] Address [address] [place] [address] Phone Care Team Providers Care Stone Paver Name Role Phone Unknown, Notinfile Primary Care Provider Unavail able Leo Manzano MD Unavailable [phone] Encounter Details Date Type Department Care Team (Late st Contact Info) Description 05/19/2023 Telephone [facility] Surgery [address] [facility] Floor 1 [place] [address] Manish Grider CMA Social History Tobacco Use Types Packs/Day Years Used Date Smoking Tobacco: Never Smokeless Tobacco: Never Personal Safety Answer Date Recorded Getting School Help Needed Denies 05/09 Sex and Gender Information Value Date Recorded Sex Assigned at Not on file Legal Sex Male 3:42 AM PRODUCTION SUPPORT ENGINEER Gender Identity Not on file Sexual Orientation Straight 06/12/2023 11 :43 PM PRODUCTION SUPPORT ENGINEER documented as of this encounter Miscellaneous Notes * Telephone Encounter - Manish Grider CMA - 05/19/2023 10:07 AM PRODUCTION SUPPORT ENGINEER Patient is struggling to get around the house. He needs assitance getting in and out of the shower,putting his socks on etc..Patient mother say he needs physical therapy. UCTION SUPPORT ENGINEER documented in this encounter Plan of Treatment Not on file documented as of this encounter Visit Diagnoses Not on filedocumented in this encounter Care Teams Stone Paver Relationship Specialty Start Date End Date Unknown, Notinfile PCP - General 04/30/23 06/05/23 Leo Manzano MD [address] [facility] [id number] [place] [address] Surgeon Vascular Surgery 05/16/23 documented as of this encounter
--- OUTSIDE RECORDS SUMMARY | 2024-05-30 06:30 | XMS_ITS | Encounter Summary ---
Author Organization [facility] Address [address] [place] [address] Care Team Providers Care Senior Medical Billing Specialist Name Role Phone Unknown, Notinfile Primary Care Provider Unavail able Leo Manzano MD Unavailable [phone] Reason for Visit * Auth/Cert (Routine) Specialty Diagnoses / Procedures Referred By Contac t Referred To Contact Diagnoses Dissection of abdominal aorta (CMS/HCC) (HCC) Procedures NA Referral ID Status Reason Start Date Expiration Date Visits Re quested Visits Authorized [id number] 1 1 Encounter Details Date Type Department Care Team (Late st Contact Info) Description 06/05/2023 9:28 AM VP PROJECT Anesthesia Event [facility] Operating Room [address] [place] [address] Ney Alex MD [address] [facility] [id number] [place] [address] Gonzalez Benitez MD [address] [facility] [address] [place] [address] Anesthesia Record Procedure Summary Procedure Name Responsible [...] 06/04/232009 by Eugene Barcenas RN 06/11/23 by Rita Braden RN ETT Placement Date: 06/05/23; Placement [...] on file Legal Sex Male 3:42 AM VP PROJECT Gender Identity Not on file Sexual Orientation Straight 06/12/2023 11 :43 PM VP PROJECT documented as of this encounter OR Notes * Anesthesia Postprocedure Evaluation - Elder Guerrero MD - 06/05/2023 1:28 PM CST Patient: Eriberto Chau Procedure Summary Date: 06/05/23 Room / Location: [facility] OR POD 3 ROOM 314 / [facility] OR POD 3 Anesthesia Start: 927 [...] Ney Alex MD at 06/05/2023 1:53 PM VP PROJECT PROJECT PROJECT * Anesthesia Procedure Notes - Elder Guerrero [...] patient tolerated procedure well with no complications PROJECT PROJECT * Anesthesia Procedure Notes - Elder Guerrero MD - 06/05/2023 11:36 AM CSTAssociated Order(s): Spinal Drain Spinal Drain Patient Location: OR Reason for procedure: epidural CSF Staff: Supervising provider: Dalton Markham MD PhD Placed by: Resident: Elder Geurrero MD Procedure prep: Preprocedure checklist: patient identified, [...] patient tolerated procedure well with no complications PROJECT * Anesthesia Procedure Notes - Marietta Su MD - 06/05/2023 10:43 AM VP PROJECT Associated Order(s): Airway Airway Patient location: OR [...] of attempts: 1 Planned trial extubation: yes PROJECT * Anesthesia Preprocedure Evaluation - Ney Alex MD - 06/05/2023 10:37 AM CST Images from the original note were not included. Anesthesia Evaluation Eriberto Chau is a 33 y.o. 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 No pertinent past medical [...] Medication protocol when under care of a SHUTDOWN COORDINATOR Planned anesthesia: General Team communication plan: oral [...] and agree to proceed. All questions answered. PROJECT documented in this encounter Plan of Treatment Not on file documented as of this encounter Procedures Procedure Name Priority Date/Time Associated Diagnosis Comments ANESTHESIA BLOCK - RAPID INFUSION CATHETER (KYRA) Routine 06/05/2023 11:38 AM VP PROJECT BW AN SPINAL DRAIN Routine 06/05/2023 11 :36 AM VP PROJECT ANESTHESIA INTUBATION Routine 06/05/2023 10:43 AM VP PROJECT documented in this encounter Results * Rapid Infusion Catheter (06/05/2023 11:38 AM VP PROJECT) Narrative Elder Guerrero MD - 06/05/2023 11:38 AM VP PROJECT Elder Guerrero MD ? 06/05/2023 11:39 AM [...] Final * Spinal Drain (06/05/2023 11:36 AM VP PROJECT) Narrative Elder Guerrero MD - 06/05/2023 11:36 AM VP PROJECT Elder Guerrero MD ? 06/05/2023 11:38 AM [...] Final Result * Airway (06/05/2023 10:43 AM VP PROJECT) Narrative Marietta Su MD - 06/05/2023 10:43 AM VP PROJECT Marietta Su MD ? 06/05/2023 10:45 AM [...] 1221, Anesthesia Intra-op Given 06/05/2023 12:21 PM VP PROJECT 0.5 g ceFAZolin (ANCEF) injection intravenous, Administer over 3 Minutes, As needed, Starting on 06/05/23 at 1040, Anesthesia Intra-op Given 06/05/2023 10:40 AM VP PROJECT 2,000 mg clevidipine (CLEVIPREX) 50 mg/100 mL [...] hours., Routine New Bag 06/05/2023 1:33 PM VP PROJECT 4 mg/hr 8 mL/h r Rate/Dose Change 06/05/2023 10:11 AM VP PROJECT 8 mg/hr 16 mL/ hr Rate/Dose Change 06/05/2023 9:41 AM VP PROJECT 16 mg/hr 32 mL/h r ePHEDrine injection intravenous, Administer over 5 Minutes, As needed, Starting on 06/05/23 at 1210, Anesthesia Intra-op Given 06/05/2023 12:46 PM VP PROJECT 2.5 mg Given 06/05/2023 12:23 PM VP PROJECT 5 mg Given 06/05/2023 12:10 PM VP PROJECT 10 mg esmolol in 0.9% sodium chloride [...] at goal., RoutineIndications:hypertension Restarted 06/05/2023 1:06 PM VP PROJECT 100 mL/hr 100 mL/hr Rate/Dose Verify 06/05/2023 9:28 AM VP PROJECT 179.6 m L/hr Rate/Dose Verify 06/05/2023 9:00 AM VP PROJECT 300 mcg/kg/min 179 .6 mL/hr fentaNYL (SUBLIMAZE) preservative free injection intravenous, As needed, Starting on 06/05/23 at 0953, Anesthesia Intra-op Given 06/05/2023 1:14 PM VP PROJECT 50 mcg Given 06/05/2023 10:06 AM VP PROJECT 50 mcg Given 06/05/2023 9:33 AM VP PROJECT 50 mcg heparin 1,000 unit/mL injection intravenous, As needed, Starting on 06/05/23 at 1119, Anesthesia Intra-op Bolus 06/05/2023 11:34 AM VP PROJECT 2,000 U nits New Bag 06/05/2023 11:19 AM VP PROJECT 10,000 Units Lactated Ringer's (LR) infusion 10 mL/hr, intravenous, Continuous, Starting on 06/04/23 at 0045 Rate/Dose Verify 06/07/2023 9:00 AM VP PROJECT 10 mL/hr 10 mL/hr Restarted 06/07/2023 8:26 AM VP PROJECT 10 mL/hr 10 mL/hr Rate/Dose Verify 06/07/2023 6:00 AM VP PROJECT 10 mL/hr 10 mL/h r lidocaine (cardiac) (XYLOCAINE) preservative free injection intravenous, As needed, Starting on 06/05/23 at 1006, Anesthesia Intra-op, Indications: Ventricular ArrhythmiasIndications:Ventricular Arrhythmias Given 06/05/2023 10:06 AM VP PROJECT 60 mg midazolam (VERSED) 2 mg/2 mL preservative free injection intravenous, Administer over 2 Minutes, As needed, Starting on 06/05/23 at 0932, Anesthesia Intra-op Given 06/05/2023 9:32 AM VP PROJECT 2 mg ondansetron (ZOFRAN) injection 4 mg 4 mg, intravenous, Administer over 2 Minutes, Every 6 hours PRN, nausea, vomiting, Starting on 06/04/23 at 0005, Administer no sooner than 6 hours after last dose. Given 06/10/2023 6:17 PM VP PROJECT 4 mg Given 06/07/2023 9:11 AM VP PROJECT 4 mg Given 06/06/2023 5:17 PM VP PROJECT 4 mg phenylephrine (KARLI-SYNEPHRINE) 1 mg/10 mL (100 mcg/mL) in sodium chloride 0.9% (premix) intravenous, As needed, Starting on 06/05/23 at 1122, Anesthesia Intra-op Restarted 06/05/2023 12:44 PM VP PROJECT 0.6 mcg/kg/min 36.144 mL/hr Rate/Dose Change 06/05/2023 12:34 PM VP PROJECT 0.2 mcg/kg/min 12 .048 mL/hr Rate/Dose Change 06/05/2023 12:32 PM VP PROJECT 0.6 mcg/kg/min 36 .144 mL/hr propofoL (DIPRIVAN) 10 mg/mL IV intravenous, As needed, Starting on 06/05/23 at 1006, Anesthesia Intra-op Bolus 06/05/2023 12:53 PM VP PROJECT 40 mg Bolus 06/05/2023 12:49 PM VP PROJECT 40 mg New Bag 06/05/2023 10:06 AM VP PROJECT 150 mg protamine injection intravenous, As needed, Starting on 06/05/23 at 1216, Anesthesia Intra-op, Indications: Heparin ToxicityIndications:Heparin Toxicity Given 06/05/2023 12:36 PM VP PROJECT 20 mg Given 06/05/2023 12:22 PM VP PROJECT 20 mg Given 06/05/2023 12:17 PM VP PROJECT 20 mg rocuronium (ZEMURON) injection intravenous, As needed, Starting on 06/05/23 at 1006, Anesthesia Intra-op Given 06/05/2023 11:06 AM VP PROJECT 30 mg Given 06/05/2023 10:06 AM VP PROJECT 20 mg succinylcholine (ANECTINE) injection intravenous, As needed, Starting on 06/05/23 at 1006, Anesthesia Intra-op Given 06/05/2023 10:06 AM VP PROJECT 80 mg sugammadex (BRIDION) 100 mg/mL intravenous solution intravenous, As needed, Starting on 06/05/23 at 1249, Anesthesia Intra-op Given 06/05/2023 12:49 PM VP PROJECT 200 mg Transfuse RBC Routine New Bag 06/05/2023 11:36 AM VP PROJECT documented in this encounter Care Teams Senior Medical Billing Specialist Relationship Specialty Start Date End Date Unknown, Notinfile PCP - General 04/30/23 06/05/23 Leo Manzano MD [id number] [place] [address] Surgeon Vascular Surgery 05/16/23 documented as of this encounter
--- OUTSIDE RECORDS SUMMARY | 2024-05-30 06:30 | XMS_ITS | Encounter Summary ---
Author Organization [facility] Healthcare Address [address] [place] [address] Care Team Providers Care Publication Distributor Name Role Phone Unknown, Notinfile Primary Care Provider Unavail able Leo Manzano MD Unavailable [phone] Reason for Visit * Reason Comments Post-op Problem * Auth/Cert (Routine) Specialty Diagnoses / Procedures Referred By Contac t Referred To Contact Diagnoses Dissection of abdominal aorta (CMS/HCC) (HCC) Procedures NA Referral ID Status Reason Start Date Expiration Date Visits Re quested Visits Authorized [id number] 1 1 Encounter Details Date Type Department Care Team (Late st Contact Info) Description 06/05/2023 10:00 AM LEAD PRESSMAN - 06/05/2023 2:15 PM LEAD PRESSMAN Surgery [facility] Operating Room [address] [place] [address] Nikhil Samuel MD [address] [place] [address] Thoracic Endovascular Repair - Aortic Surgery Details [...] file Legal Sex Male 3:42 AM LEAD PRESSMAN Gender Identity Not on file Sexual Orientation Straight 06/12/2023 11 :43 PM LEAD PRESSMAN documented as of this encounter Last Filed Vital Signs Vital Sign Reading Time Taken Comments Blood Pressure 110/56 06/05/2023 9:16 AM LEAD PRESSMAN Pulse 90 06/05/2023 2:15 PM LEAD PRESSMAN Temperature 36.3 ??C (97.4 ??F) 06/05/2023 1:45 PM CS T Respiratory Rate 15 06/05/2023 2:15 PM LEAD PRESSMAN Oxygen Saturation 99% 06/05/2023 2:15 PM LEAD PRESSMAN Inhaled Oxygen Concentration - - Weight 100.4 kg (221 lb 5.5 oz) 06/04/2023 6:00 AM LEAD PRESSMAN Height 175.3 cm (5' 9 ) 06/04/2023 1:05 AM LEAD PRESSMAN Body Mass Index 32.78 06/04/2023 1:05 AM LEAD PRESSMAN documented in this encounter Discharge Summaries * Shannon Bran BATCH FREEZER OPERATOR - 06/09/2023 2:44 PM CST Inpatient Discharge Summary BRIEF OVERVIEW Admitting Provider: Nikhil Samuel MD Discharge Provider: Nikhil Samuel MD Primary Care Physician at Discharge: Carl Strickland MD [phone] Admission Date: 06/03/2023 Discharge Date: 06/11/2023 Admission Location: [facility] Problems/Diagnoses: Principal Problem: Dissection of abdominal aorta [...] 06/22/2023 1:[address] [facility] Main 06/22/2023 3:00 PM Leo Manzano MD [facility] BW3 [address] Cosigned by Nikhil Samuel MD at 06/21/2023 11:39 AM LEAD PRESSMAN PRESSMAN PRESSMAN documented in this encounter Medications at Time [...] will recommend genetic testing as an outpatient PRESSMAN * Bettie Wheeler NP - 06/10/2023 2:49 PM CST Vascular Surgery Daily Progress Patient Name/MRN: Eriberto Chau [id number] Treatment Team: Vascular Surgery- Pager: Attending: Nikhil Samuel MD Today's Date: 06/10/2023 Room/Bed: [id number] Admit Date: 06/03/2023 Code Status: Full Code [...] tablet 1,000 mg 1,000 mg oral Q6H [facility] Sreekanth Armstrong NP 1,000 mg [...] 5 mg intravenous Q6H PRN Sreekanth Armstrong BATCH FREEZER OPERATOR 5 mg at 06/07/23 0956 QUEtiapine (SEROquel) [...] Dr. Abarca as outpatient for genetics testing. [facility] Patient Centered Goal for Treatment: to go home and not come back Agree with patient centered goal: yes For patients or family members viewing this note through [employer] programs: This note was written as a [...] Nikhil Samuel MD at 06/21/2023 11:39 AM LEAD PRESSMAN PRESSMAN PRESSMAN * Ana Laura Starr RD - 06/09/2023 [...] POC -- -- -- < > -- [id number] mL/min/1.73 m2 >90 >90 >90 < > [...] Adult Diet Regular Diet effective now Question: ([facility]) Diet type Answer: Regular 06/06/23 1429 Allergies: Reviewed. IMPRESSION: 06/09 - RD screened pt per MST score of 3. Pt reports eating less after may 16, 2023 - was eating only jello and McChicken. Reports having N/V/D TELECOMMUNICATOR, but denies it during the hospital stay. [...] depth pinch but not ample Muscle Loss [place] - Temporalis Muscle: Slight depression Clavicle [...] I/O Ana Laura Starr MS, RD, LD [facility] PRESSMAN * Shannon Bran NP - 06/09/2023 11:45 AM CST Vascular Surgery Daily Progress Patient Name/MRN: Eriberto Chau [id number] Treatment Team: Vascular Surgery- Pager: Attending: Nikhil Samuel MD Today's Date: 06/09/2023 Room/Bed: [id number] Admit Date: 06/03/2023 Code Status: Full Code [...] tablet 1,000 mg 1,000 mg oral Q6H [facility] Sreekanth Armstrong NP 1,000 mg [...] or family members viewing this note through [employer] programs: This note was written as a [...] Nikhil Samuel MD at 06/21/2023 11:39 AM LEAD PRESSMAN PRESSMAN PRESSMAN * Dank Garcia - 06/09/2023 11:40 AM [...] treatment team and contact the PT or TELECOMMUNICATOR currently assigned to this patient. If a physical therapy clinician is not assigned to this patient, please call [phone]. 06/09/23 1140 PT Last Visit Session Type Treatment (Discharge) PT Received On 06/09/23 Safe Environment Arm band checked;Patient found sitting in chair;Session completed bedside;Gait belt utilized for all out of bed mobility Subjective Agreeable to Therapy Family/Caregiver Present Yes (Family) Precautions Precautions None Activity Tolerance Activity Tolerance Comments HARDEEP: MA 04/18 Pain Assessment Pain Assessment 0-10 Pain [...] Safety Other Activities Other Activities Comments Hardeep: MA 04/18 Bed Mobility Bed Mobility No Transfers [...] treatment team and contact the PT or TELECOMMUNICATOR currently assigned to this patient. If a physical therapy clinician is not assigned to this patient, please call [phone]. Cosigned by Otoniel Dow, PT at 06/09/2023 12:49 PM LEAD PRESSMAN PRESSMAN PRESSMAN * Joaquín Abarca MD - 06/09/2023 10:54 [...] will recommend genetic testing as an outpatient PRESSMAN * Mary Mascorro OT - 06/09/2023 10:43 [...] of Steps 3 Prior Function Level of Wake Independent with ADLs;Independent functional transfers;Independent with ambulation;Independent with homemaking with ambulation Lives With Significant other;Mother (7 kids) Receives Help From Spouse/Significant other;Family (multimedia designer) ADL ADLS (WDL) X Grooming Grooming: Where [...] position in room with call light withinreach. PRESSMAN * Cristobal Chopra MD - 06/08/2023 8:36 PM CST Vascular Surgery ICU accept note Patient Name/MRN: Eriberto Chau [id number] Treatment Team: Vascular Surgery- Pager: [phone] Attending: Nikhil Samuel MD Today's Date: 06/08/2023 Room/Bed: [id number] Admit Date: 06/03/2023 Code Status: Full Code [...] tablet 1,000 mg 1,000 mg oral Q6H [facility] Sreekanth Armstrong NP 1,000 mg [...] B aortic dissection who underwent placement of [place] TBE on 05/02/23 who presents with abdominal [...] Nikhil Samuel MD at 06/21/2023 11:39 AM LEAD PRESSMAN PRESSMAN PRESSMAN PRESSMAN * Kathryn Granger MD - 06/08/2023 11:21 AM CST Vascular Surgery Daily Progress Patient Name/MRN: Eriberto Chau [id number] Treatment Team: Vascular Surgery- Pager: [phone] Attending: Nikhil Samuel MD Today's Date: 06/08/2023 Room/Bed: [place] [id number]/[id number] Admit Date: 06/03/2023 Code Status: Full Code [...] B aortic dissection who underwent placement of [place] TBE on 05/02/23 who presents with abdominal [...] removal Kathryn Granger Vascular Surgery Fellow Pager: [phone] Cosigned by Nikhil Samuel MD at 06/08/2023 4:22 PM LEAD PRESSMAN PRESSMAN PRESSMAN * Priscilla Chacon DPT - 06/08/2023 8:29 [...] No Prior Function Prior Function Level of Wake: Independent with ADLs, Independent functional transfers, Independent with ambulation Lives With: Spouse (children) Receives Help From: Spouse/Significant other, Family (time checker) Driving: Yes 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[place] TBE stent Graft (05/02) Hypertension S/p TEVAR [...] plan with the ICU team and other medical/payroll consultant staff, making frequent assessments and decisions [...] Mehul Brooks MD at 06/15/2023 8:28 AM LEAD PRESSMAN PRESSMAN PRESSMAN * Kathryn Granger MD - 06/07/2023 4:01 PM CST Vascular Surgery Daily Progress Patient Name/MRN: Eriberto Chau [id number] Treatment Team: Vascular Surgery- Pager: [phone] Attending: Nikhil Samuel MD Today's Date: 06/07/2023 Room/Bed: [id number] Admit Date: 06/03/2023 Code Status: Full Code [...] B aortic dissection who underwent placement of [place] TBE on 05/02/23 who presents with abdominal [...] today Kathryn Granger Vascular Surgery Fellow Pager: [phone] Cosigned by Nikhil Samuel MD at 06/08/2023 4:22 PM LEAD PRESSMAN PRESSMAN PRESSMAN * Sreekanth Armstrong NP - 06/07/2023 6:19 AM CSTAssociated Order(s): Critical Care Post-Procedure Diagnose(s): Dissection of abdominal aorta (CMS/HCC) ([facility]) CT ICU Daily Progress Shifts: NPP [...] pain Following vascular surgery - Susan tylenol, Lpoez, Robaxin - Stop Dilaudid DEPUTY CONTROLLER - Start PO Oxy q4 Insomnia Nightmares Likely 2/2 frequent interruptions and hx of intense nightmares - Seroquel - Sleep Hygiene - Decrease interruptions Type B Aortic Dissection S/p [place] TBE stent Graft (05/02) Hypertension S/p TEVAR [...] PO antihypertensives w/ hx Sreekanth Afshin Fender, BATCH FREEZER OPERATOR Critical Care Performed by: Sreekanth Armstrong NP [...] plan with the ICU team and other medical/payroll consultant staff, making frequent assessments and decisions [...] Mehul Brooks MD at 06/15/2023 8:25 AM LEAD PRESSMAN PRESSMAN PRESSMAN PRESSMAN * Benny Isaacs NP - 06/06/2023 6:30 [...] scheduled Tylenol, Robaxin and Gabapentin - Dilaudid DEPUTY CONTROLLER; 0.5mg q10 min CV: # Type B Aortic Dissection s/p [place] TBE stent graft 05/02 # C/f progression [...] plan with the ICU team and other medical/payroll consultant staff, making frequent assessments and decisions [...] Mehul Brooks MD at 06/15/2023 8:24 AM LEAD PRESSMAN PRESSMAN PRESSMAN * Kathryn Granger MD - 06/06/2023 10:08 AM CST Vascular Surgery Daily Progress Patient Name/MRN: Eriberto Chau [id number] Treatment Team: Vascular Surgery- Pager: [phone] Attending: Nikhil Samuel MD Today's Date: 06/06/2023 Room/Bed: [place] [id number]/[id number] Admit Date: 06/03/2023 Code Status: Full Code [...] B aortic dissection who underwent placement of [place] TBE on 05/02/23 who presents with abdominal [...] >10 Kathryn Granger Vascular Surgery Fellow Pager: [phone] Cosigned by Nikhil Samuel MD at 06/08/2023 4:22 PM LEAD PRESSMAN PRESSMAN PRESSMAN * Sheila Winters NP - 06/06/2023 7:00 [...] AM Result Value Ref Range Product code F3651P04 Unit Number [id number] Product Blood Type APOS Dispense Status PRESUMED TRANSFUSED Product code Q2158Q76 Unit Number [id number] Product Blood Type APOS Dispense Status PRESUMED TRANSFUSED Product code L9721B30 Unit Number [id number] Product Blood Type APOS Dispense Status CROSSMATCHED Product code X6257M56 Unit Number [id number] Product Blood Type APOS Dispense Status PRESUMED [...] (H) 123 - 168 sec POC Performer [id number] POC Device Number [id number] POCT Activated clotting time, low range Collection Time: 06/05/23 11:49 AM Result Value Ref Range ACT 244 (H) 123 - 168 sec POC Performer [id number] POC Device Number [id number] POCT Activated clotting time, low range Collection Time: 06/05/23 12:29 PM Result Value Ref Range ACT 219 (H) 123 - 168 sec POC Performer [id number] POC Device Number [id number] POCT Activated clotting time, low range Collection Time: 06/05/23 12:42 PM Result Value Ref Range ACT 150 123 - 168 sec POC Performer [id number] POC Device Number [id number] CBC with auto differential Collection Time: 06/05/23 [...] scheduled Tylenol, Robaxin and Gabapentin - Dilaudid DEPUTY CONTROLLER; 0.5mg q10 min - Pain goal < 4 CV: #Type B Aortic Dissection s/p [place] TBE stent graft 05/02 #C/f progression of [...] drain - Add acapella therapy QID per FUR STYLIST - Daily CXR GI: Diet: CLD, ADAT [...] reviewed with fellow and attending [facility]/06/2023 Critical Care Performed by: Sheila Winters [...] plan with the ICU team and other medical/payroll consultant staff, making frequent assessments and decisions [...] Mehul Brooks MD at 06/15/2023 8:25 AM LEAD PRESSMAN PRESSMAN PRESSMAN * Benny Isaacs NP - 06/05/2023 6:37 [...] AM Result Value Ref Range Product code E8553L65 Unit Number [id number] Product Blood Type APOS Dispense Status PRESUMED TRANSFUSED Product code B7208P93 Unit Number [id number] Product Blood Type APOS Dispense Status PRESUMED TRANSFUSED Product code S1891X97 Unit Number [id number] Product Blood Type APOS Dispense Status CROSSMATCHED Product code O3817R92 Unit Number [id number] Product Blood Type APOS Dispense Status PRESUMED [...] (H) 123 - 168 sec POC Performer [id number] POC Device Number [id number] POCT Activated clotting time, low range Collection Time: 06/05/23 11:49 AM Result Value Ref Range ACT 244 (H) 123 - 168 sec POC Performer [id number] POC Device Number [id number] POCT Activated clotting time, low range Collection Time: 06/05/23 12:29 PM Result Value Ref Range ACT 219 (H) 123 - 168 sec POC Performer [id number] POC Device Number [id number] POCT Activated clotting time, low range Collection Time: 06/05/23 12:42 PM Result Value Ref Range ACT 150 123 - 168 sec POC Performer [id number] POC Device Number [id number] CBC with auto differential Collection Time: 06/05/23 [...] scheduled Tylenol, Robaxin and Gabapentin - Dilaudid DEPUTY CONTROLLER; 0.5mg q10 min CV: # Type B Aortic Dissection s/p [place] TBE stent graft 05/02 # C/f progression [...] plan with the ICU team and other medical/payroll consultant staff, making frequent assessments and decisions [...] Mehul Brooks MD at 06/15/2023 8:24 AM LEAD PRESSMAN PRESSMAN PRESSMAN * Georgia Rivera, PT - 06/05/2023 9:25 AM CST Physical Therapy 06/05/23 0925 General PT Missed Visit Reason Procedure/testing/appointment (scheduled for OR this date) Recommendation/Plan PT Frequency during current admission Monitor status PT - Next Appointment 06/07/23 PRESSMAN * Heber Randolph MD - 06/05/2023 9:03 AM CST Vascular Surgery Daily Progress Patient Name/MRN: Eriberto Chau [id number] Treatment Team: Vascular Surgery- Pager: [phone] Attending: Alonzo Duncan MD Today's Date: 06/05/2023 Room/Bed: [id number] Admit Date: 06/03/2023 Code Status: Full Code [...] B aortic dissection who underwent placement of [place] TBE on 05/02/23 who presents with abdominal [...] procedure. Heber Randolph MD Vascular Surgery Fellow [phone] (this is a pager, please leave a callback number) Vascular Consults: Vascular Floor/BATCH FREEZER OPERATOR: Problem List Cardiac and Vasculature * (Principal) Dissection of abdominal aorta (CMS/HCC) (HCC) - Primary Relevant Orders Insert arterial line (Completed) Case Request Operating Room: TEVAR - Thoracic Endovascular Repair (Completed) Critical Care (Completed) Case Request Operating Room: Thoracic Endovascular Repair - Aortic (Completed) CV Hybrid Room (Default Orderable) For patients or family members viewing this note through [employer] programs: This note was written as a [...] Alonzo Duncan MD at 06/06/2023 7:26 AM LEAD PRESSMAN PRESSMAN PRESSMAN * Sheila Winters NP - 06/05/2023 6:40 [...] scheduled Tylenol, Robaxin and Gabapentin - Dilaudid DEPUTY CONTROLLER; 0.5mg q10 min - Pain goal < 4 CV: #Type B Aortic Dissection s/p [place] TBE stent graft 05/02 #C/f progression of [...] reviewed with fellow and attending Tana Winters [facility] 06/05/2023 Critical Care Performed by: Sheila Winters [...] plan with the ICU team and other medical/payroll consultant staff, making frequent assessments and decisions [...] Mehul Brooks MD at 06/15/2023 8:25 AM LEAD PRESSMAN PRESSMAN PRESSMAN PRESSMAN PRESSMAN * Benny Isaacs NP - 06/04/2023 6:46 [...] scheduled Tylenol, Robaxin and Gabapentin - Dilaudid DEPUTY CONTROLLER; 0.5mg q10 min CV: # Type B Aortic Dissection s/p [place] TBE stent graft 05/02 # C/f progression [...] plan with the ICU team and other medical/payroll consultant staff, making frequent assessments and decisions [...] Mehul Brooks MD at 06/15/2023 8:24 AM LEAD PRESSMAN PRESSMAN PRESSMAN * Heber Randolph MD - 06/04/2023 5:11 PM CST Vascular Surgery Daily Progress Patient Name/MRN: Eriberto Chau [id number] Treatment Team: Vascular Surgery- Pager: [phone] Attending: Alonzo Ducnan MD Today's Date: 06/04/2023 Room/Bed: [id number] Admit Date: 06/03/2023 Code Status: Prior Subjective [...] B aortic dissection who underwent placement of [place] TBE on 05/02/23 who presents with abdominal [...] care Heber Randolph MD Vascular Surgery Fellow [phone] (this is a pager, please leave a callback number) Vascular Consults: Vascular Floor/BATCH FREEZER OPERATOR: Problem List Cardiac and Vasculature * (Principal) Dissection of abdominal aorta (CMS/HCC) (HCC) - Primary Relevant Orders Insert arterial line (Completed) For patients or family members viewing this note through [employer] programs: This note was written as a [...] Alonzo Duncan MD at 06/06/2023 7:26 AM LEAD PRESSMAN PRESSMAN PRESSMAN documented in this encounter H&P Notes * [...] #Post-surgical pain -Home gabapentin -Home robaxin -Dilaudid DEPUTY CONTROLLER, transition to PO medications when able ICU Checklist Feeding: NPO DVT ppx: Hold pharmacological ppx until operative plan determined, SCDs Glycemic control: No prior history of diabetes, not indicated at this time Ulcer ppx: None indicated LDA: Right radial a-line, PIV x2 Cosigned by Mehul Brooks MD at 06/15/2023 8:35 AM LEAD PRESSMAN PRESSMAN PRESSMAN PRESSMAN documented in this encounter Procedure Notes * [...] procedure as documented. Carline Jerome MD 06/07/2022 PRESSMAN PRESSMAN * Sherlyn Alicea MD - 06/04/2023 1:26 AM CSTAssociated Order(s): Arterial Line Insertion Post-Procedure Diagnose(s): Dissection of abdominal aorta (CMS/HCC) (HCC) Arterial Line Insertion Date/Time: 06/04/2023 1:26 AM Performed by: Michael Hamm MD Authorized by: Mehul Brooks MD Bryant Protocol: RN Notified of Procedure: yes Informed consent: Risks, benefits, alternatives discussed and patient/account retention representative/guardian agrees and accepts Patient's stated name/ [...] Mehul Brooks MD at 06/15/2023 8:35 AM LEAD PRESSMAN PRESSMAN PRESSMAN PRESSMAN documented in this encounter Consult Notes * [...] sodium chloride 0.9%, 0.5-20 mL, intra-catheter, Q8H [facility] tamsulosin, 0.8 mg, oral, Daily [...] this as an outpatient. Joaquín Abarca MD PRESSMAN * Shana Tillman, RD - 06/04/2023 3:39 [...] POC -- -- -- < > -- [id number] mL/min/1.73 m2 61 55* 89 -- 85 [...] care, Diet advancement Shana Tillman RD, LD, [facility] [phone] NSS Oncall/Weekend PRESSMAN * Brynn Lazo MD - 06/03/2023 10:30 PM CST Vascular Surgery Consultation Patient Name/MRN: Eriberto Chau [id number] Treatment Team: Vascular Surgery- Reason for Consult: increase false lumen size, known thoracic dissection Attending: Alonzo Duncan MD Today's Date: 06/04/2023 Admitting Service: Vascular Admitting location: [place] [address]/[id number] Admit Date: 06/03/2023 Code Status: Prior CC: [...] tablet 1,000 mg 1,000 mg oral Q6H [facility] Sherlyn Alicea MD 1,000 mg [...] surgery will continue to follow. Please call [phone] with vascular consult questions 20/12. Cosigned by Alonzo Duncan MD at 06/06/2023 7:25 AM LEAD PRESSMAN PRESSMAN PRESSMAN documented in this encounter Nursing Notes * Jessica Gambino RN - 06/07/2023 3:13 PM CST Lumbar drain removed by MD Jerome via bedside (see MD note). VO to monitor neurovascular, neuromotor, and drain site every hour x4 and to remain on bedrest with HOB flat. Care ongoing. PRESSMAN PRESSMAN PRESSMAN PRESSMAN * Jessica Gambino RN - 06/06/2023 4:20 [...] Pt denied headache, lightheadedness, vision changes, numbness/tingling. BATCH FREEZER OPERATOR Vianey made aware of the situation. Care ongoing. PRESSMAN PRESSMAN * Shirley Horan RN - 06/05/2023 4:33 PM CST Pt returned to 5612 from CVOR. Spinal drain in place, draining clear fluid. Assessments as noted inflowsheets. Clevidipine restarted for Systolic 140-160. PRESSMAN * Shirley Horan RN - 06/05/2023 1:20 [...] and special bed in place as prevention. PRESSMAN documented in this encounter ED Notes * [...] deficit present. Mental Status: He is alert. [facility] Medical Decision Making Assessment: 33 y.o. male [...] with voice recognition software. Occasional wrong-word or 'nqpyu-n-rasw' substitutions may have occurred due to the [...] bleeding By: Tressa Sorensen MD Time: 06/03 7667 Comment: ED attending-Franchesca. 33 male recently hospitalized [...] up esmolol and also adjust pain meds. [facility] plan to admit to CTICU By: Tressa [...] resident's note. Nona Herrera MD Resident 06/04/23 6707 Tressa Sorensen MD 06/06/23 1213 PRESSMAN PRESSMAN * Sreekanth Thomas RN - 06/03/2023 6:25 PM CST Bed: [facility] Expected date: Expected time: Means of arrival: Comments: Triage Sreekanth Thomas RN 06/03/23 1825 PRESSMAN * Nicole Hoang RN - 06/03/2023 5:59 [...] chest pain/shortness of breath/urinary problems. GCS 15 PRESSMAN documented in this encounter Miscellaneous Notes * [...] record. Sincerely, Tressa Hsieh Health Information Management PRESSMAN * Plan of Care - Rita Braden [...] Summary: Plan of care discussed with patient. PRESSMAN * Assessment & Plan Note - Joaquín Abarca MD - 06/11/2023 7:50 AM LEAD PRESSMAN Associated Problem(s): Dissection of thoracoabdominal aorta (CMS/HCC) (HCC) Clinically stable. Renal function stable. Blood pressure improved We will recommend genetic testing as an outpatient PRESSMAN * Assessment & Plan Note - Joaquín Abarca MD - 06/11/2023 7:50 AM LEAD PRESSMAN Associated Problem(s): HTN (hypertension) Patient hypertensive. Recommend resuming hydralazine 25 mg 3 times a day. Continue the amlodipine and carvedilol. Follow-up blood pressure. The patient should have follow-up blood pressure when he leaves the hospital as well. PRESSMAN * Subjective & Objective - Joaquín Abarca MD - 06/11/2023 7:48 AM LEAD PRESSMAN Cardiology Daily Progress Note Patient Name: Eriberto [...] stable. Creatinine stable. Potassium stable. Sodium stable. PRESSMAN * Plan of Ann - Leticia Navas [...] Remain free from falls Sleep hygiene Summary: Study Hall Supervisor Patient Centered Goal for Treatment: to go home and not come back Agree with patient centered goal: yes PRESSMAN * Plan of Care - Jill Dunn [...] Ability to cope will improve Outcome: Progressing PRESSMAN * Plan of Care - Edel Sharp [...] informed about POC, will continue to monitor PRESSMAN * Assessment & Plan Note - Shannon Bran NP - 06/09/2023 11:53 AM LEAD PRESSMAN Associated Problem(s): Dissection of thoracoabdominal aorta (CMS/HCC) (HCC) Presents with abdominal pain and concern for progression of dissection on CT - 06/05/23: OR s/p TEVAR extension and dissection stent placement - BP management per HTN - pain control - Q4 NV checks, Q2 VS - lovenox DVT ppx - He will f/u with Dr. Abarca as outpatient for genetics testing. PRESSMAN PRESSMAN PRESSMAN * Assessment & Plan Note - Shannon Bran NP - 06/09/2023 11:43 AM LEAD PRESSMAN Associated Problem(s): HTN (hypertension) Goal systolic BP [...] Coreg increased 06/10. - continue OU status PRESSMAN PRESSMAN PRESSMAN PRESSMAN PRESSMAN * Assessment & Plan Note - Joaquín Abarca MD - 06/09/2023 10:54 AM LEAD PRESSMAN Associated Problem(s): Dissection of thoracoabdominal aorta (CMS/HCC) (HCC) Clinically stable. Renal function stable. Blood pressure improved We will recommend genetic testing as an outpatient PRESSMAN * Assessment & Plan Note - Joaquín Abarca MD - 06/09/2023 10:54 AM LEAD PRESSMAN Associated Problem(s): HTN (hypertension) Blood pressure well controlled at present. Medicines are being adjusted. Currently on carvedilol and hydralazine. A want to transition to amlodipine 5 mg a day to wean hydralazine, as tolerated, as 3 times a day medication can be difficult long-term PRESSMAN * Subjective & Objective - Joaquín Abarca MD - 06/09/2023 10:34 AM LEAD PRESSMAN Cardiology Daily Progress Note Patient Name: Eriberto [...] it. Electronically signed by: Monster Easley M.D. PRESSMAN * Plan of Care - Nakita Mcbride LCSW - 06/09/2023 9:50 AM LEAD PRESSMAN Social Work attempted to follow up with patient regarding employment, financial assistance, and mental health resources. Patient was asleep and did not awaken when Social Work quietly stated his name. Social Work left resources on bedside table. Social Work available should patient have questions regarding resources. No further Social Work needs identified at this time. LIZZ Lott LCSW Please see [facility] for contact information. PRESSMAN PRESSMAN * Plan of Care - Jill Dunn [...] Ability to cope will improve Outcome: Progressing PRESSMAN * Plan of Care - Linda Betancourt [...] improve to fullest extent possible Outcome: Progressing PRESSMAN * Plan of Care - Alysa Barillas [...] ordered and continue to assess the patient. 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: Medicaid Race: White/ Ethnicity: [...] members Parent Name/Contact Information: meron blankenship (Mother) [phone] Other Family Member Name/Contact Information: Mothers of the the patient's children Participation from Patient's Support System: Active/involved Do you have a Adventism Preference or Affiliation?: Yes Preference/Affiliation : Faith Are there any Adventism Practices that are important to maintain while admitted?: No Do you have Cultural Factors that are important to you?: No (06/08/231438) Strengths, Assets, Liabilities and Stressors: Strengths, Assets, Liabilities, and Stressors Strengths (Must Choose Two): Cultural/spiritual/rastafari and community involvement, Interpersonal relationships and supports,i.e., [...] More than three times a week Attends Adventism Services: More than 4 times per year [...] endorsed anxiety- patient open to resources (06/08/23 7267) Risk to Self and Others: Risk to [...] B aortic dissection who underwent placement of [place] TBE on 05/02/23 who presents with abdominal [...] file but verbally nominated meron blankenship (Mother) [phone] as surrogate decision maker in the event [...] for discharge planning needs. Nakita Mcbride LCSW PRESSMAN * Provider Query - Sreekanth Armstrong NP [...] Ayanna Brewer RN, BSN, CCDS Clinical Documentation Commercial Energy Auditor [email or web address] PRESSMAN * Plan of Care - Roge Tolbert [...] checks, pain control, maintain stable hemodynmics Summary: PRESSMAN * Plan of Care - Kindra Daniels, FUR STYLIST - 06/07/2023 7:19 PM CST BRONCHIAL HYGIENE [...] RCS will continue to monitor and assess. PRESSMAN * Plan of Care - Nakita Mcbride LCSW - 06/07/2023 10:20 AM LEAD PRESSMAN Social Work attempted to speak with patient at bedside regarding disability/FMLA and SDOH assessment due to 30 day readmission. Patient is currently unavailable. Social Work to try again later. LIZZ Lott, YI Please see [facility] for contact information. PRESSMAN * Plan of Care - Jessica Gambino [...] get pt OOBTCH as tolerated. Care ongoing. PRESSMAN * Plan of Care - Nakita Mcbride LCSW - 06/06/2023 3:43 PM LEAD PRESSMAN Social Work attempted to meet with patient/mother regarding consult for FMLA/disability and SDOH assessment due to 22% and 30 day readmission. Patient/mother are currently with a provider and unable to participate in the conversation. Social Work to try again tomorrow. LIZZ Lott LCSW Please see [facility] for contact information. PRESSMAN * Initial Assessments - Marlee Spears RN - 06/06/2023 3:08 PM LEAD PRESSMAN CM Initial Assessment Interview Note Information Obtained [...] Managed Medicaid Prescription Coverage: yes Pharmacy: [id number] - [place], [place] - [address] [facility] [address] [id number] - [place], [place] - [address] [facility] [id number] Primary Care Provider: Carl Strickland MD - [...] may not have a qualifying need for jail and that his insurance likely doesn't cover [...] Collaboration with patient, MD, direct care nurse, Gas Main Fitter, and other members of the health care team to assure needed interventions completed. 2. Return patient to optimal level of self-care post discharge. 3. Family Dentist will follow for Discharge Planning - interventions [...] with the aftercare plan. Marlee Spears RN PRESSMAN * Plan of Care - Jessica Gambino [...] with call light within reach. Care ongoing. PRESSMAN * Plan of Care - Dalton Rubio [...] practiced pulm hygiene, pain is under control. PRESSMAN * Brief Op Note - Rosey Fine MD - 06/05/2023 11:04 AM LEAD PRESSMAN Operative Progress Note Surgical Team: Surgeon(s) and Role: * Nikhil Samuel MD - Primary * Shaista Gonsalves MD - Resident - Assisting * Rosey Fine MD - Fellow Anesthesiologist: Ney Alex MD Sociology Professor: Marietta Su MD Cognos Architect: Tim Napoles RN; Rafiq Damon RN Scrub: [...] Implant Name Type Inv. Item Serial No. Bridge Rigger Lot No. LRB No. Used Action [employer] CLSR PERCLOSE PROSTYLE SUT-MEDIATD CLOSURE-REPAIR SYS 55224-08 - [id number] VASCULAR DEVICE CLSR PERCLOSE PROSTYLE SUT-MEDIATD CLOSURE-REPAIR SYS 06624-81 [employer] [id number] Left 1 Implanted WILEY [employer] CLSR PERCLOSE PROSTYLE SUT-MEDIATD CLOSURE-REPAIR SYS 29473-05 - [id number] VASCULAR DEVICE CLSR PERCLOSE PROSTYLE SUT-MEDIATD CLOSURE-REPAIR SYS 15333-70 [employer] [id number] Left 1 Implanted [employer] Graft Stent [place] Tag L20cm Od37mm Thoracic Active Control [id number] - [id number] Stent [employer] Graft Stent [place] Tag L20cm Od37mm Thoracic Active Control [id number] Wl [place] [employer] N/A 1 Implanted [employer] ZENITH 36MM 20-30MM 16MM 180MM 9 DISSECTION INTRODUCER SHEATH [id number] - [id number] [employer] ZENITH 36MM 20-30MM 16MM 180MM 9 DISSECTION INTRODUCER SHEATH [id number] [employer] [id number] N/A 1 Implanted Blood/Blood Products Transfused: 1U [...] Nikhil Samuel MD at 06/08/2023 4:22 PM LEAD PRESSMAN PRESSMAN PRESSMAN * Plan of Care - Shirley Horan [...] Goals for the Shift: OR this morning PRESSMAN * Op Note - Nikhil Samuel MD - 06/05/2023 10:00 AM CST OPERATIVE REPORT SURGEON Nikhil Samuel MD STUDENT LOAN COUNSELOR Rosey Fine MD ANESTHESIA: General PREOPERATIVE DIAGNOSIS [...] places with 2mm lumen. 37 x 200 [place] C tag was placed to cm to [...] serially dilated our tract up to 22 [place]. Intravascular ultrasound marked out the celiac artery. Aortogram was then performed. A 37 x 200 [place] C tag was introduced and deployed from [...] I was present for the entire procedure PRESSMAN * Plan of Care - Eugene Barcenas [...] Eugene Barcenas RN Outcome: Progressing 06/05/2023348 by uEgene Barcenas RN Outcome: Progressing Goal: Ability to [...] 06/05/2023348 by Eugene Barcenas, RN Outcome: Progressing PRESSMAN * Plan of Care - Pooja Cameron RN - 06/04/2023 4:56 PM LEAD PRESSMAN Problem: Lack of Knowledge: Goal: Ability to [...] increases in labetalol doses and esmolol drip), DEPUTY CONTROLLER doses adjusted as well to help better control pain PRESSMAN * ED Re-evaluation Note - Nigel Snatos MD - 06/03/2023 10:43 PM LEAD PRESSMAN ED Re-evaluation TRANSITION OF CARE ED Course as of 06/03/23 2346 Time: 06/03 1826 Comment: 05/16/23 CT surgery [...] up esmolol and also adjust pain meds. [facility] plan to admit to CTICU By: Tressa Sorensen MD Time: 06/03 2306 Comment: Has a ready bed for CTICU By: Tressa Sorensen MD No diagnosis found. Nigel Santos MD Resident 06/05/23 1831 PRESSMAN * Significant Event - Brynn Lazo MD [...] for SBP <120, HR <60 Please call [phone] with any questions or concerns. Bari Phelps MD MPHS PRESSMAN * ED Procedure Note - Tressa Sorensen [...] cardiac monitored bed. Tressa Sorensen MD 06/03/232214 PRESSMAN * ED Procedure Note - Michael Cortes MD - 06/03/2023 6:18 PM CSTAssociated Order(s): ECG 12 lead Procedure ECG 12 lead Date/Time: 06/03/2023 6:18 PM Performed by: Michael Cotres MD Authorized by: Deandre Niño MD Rate: ECG rate: Rate 107, narrow complex, regular, sinus, no stemi. nonspecific st changes in I, II, III,aVL, V4-V6 that were present on prior May 13 ECG Michael Cortes MD 06/03/231818 PRESSMAN documented in this encounter Plan of Treatment Pending Results Name Type Priority Associated Diagnoses Date /Time Basic metabolic panel Lab Routine 10/2023 6:09 AM LEAD PRESSMAN Magnesium Lab Timed 06/04/2023 11: 59 PM LEAD PRESSMAN Phosphorus Lab Timed 06/04/2023 11: 59 PM LEAD PRESSMAN Basic metabolic panel Lab Routine 12/2023 12:06 AM LEAD PRESSMAN Lactate Lab Routine 06/08/2023 12: 03 AM LEAD PRESSMAN Basic metabolic panel Lab Routine 04/2024 5:24 AM LEAD PRESSMAN Scheduled Orders Name Type Priority Associated Diagnoses [...] Diagnosis Comments EGFR Routine 06/11/2023 3:21 AM LEAD PRESSMAN DIFFERENTIAL AUTO Routine 06/11/2023 3:21 AM LEAD PRESSMAN CBC WITH AUTO DIFFERENTIAL Routine 06/11/2023 3:21 AM LEAD PRESSMAN TYPE AND SCREEN Timed 06/11/2023 3:21 AM LEAD PRESSMAN PHOSPHORUS Routine 06/11/2023 3:21 AM LEAD PRESSMAN MAGNESIUM Routine 06/11/2023 3:21 AM LEAD PRESSMAN BASIC METABOLIC PANEL Routine 06/11/2023 3:21 AM LEAD PRESSMAN XR CHEST 1 VIEW Timed 06/10/2023 7:25 PM LEAD PRESSMAN CTA CHEST ABDOMEN PELVIS IP Routine 06/10/2023 8:33 AM LEAD PRESSMAN PEP THERAPY Routine 06/10/2023 8:00 AM LEAD PRESSMAN EGFR Routine 06/10/2023 5:24 AM LEAD PRESSMAN DIFFERENTIAL AUTO Routine 06/10/2023 5:24 AM LEAD PRESSMAN CBC WITH AUTO DIFFERENTIAL Routine 06/10/2023 5:24 AM LEAD PRESSMAN PHOSPHORUS Routine 06/10/2023 5:24 AM LEAD PRESSMAN MAGNESIUM Routine 06/10/2023 5:24 AM LEAD PRESSMAN BASIC METABOLIC PANEL Routine 06/10/2023 5:24 AM LEAD PRESSMAN XR CHEST 1 VIEW Timed 06/09/2023 6:36 PM LEAD PRESSMAN PEP THERAPY Routine 06/09/2023 6:00 PM LEAD PRESSMAN PEP THERAPY Routine 06/09/2023 1:00 PM LEAD PRESSMAN PEP THERAPY Routine 06/09/2023 8:00 AM LEAD PRESSMAN EGFR Timed 06/08/2023 8:53 PM LEAD PRESSMAN CBC WITHOUT DIFFERENTIAL Timed 06/08/2023 8:53 PM LEAD PRESSMAN PHOSPHORUS Routine 06/08/2023 8:53 PM LEAD PRESSMAN MAGNESIUM Routine 06/08/2023 8:53 PM LEAD PRESSMAN BASIC METABOLIC PANEL Timed 06/08/2023 8:53 PM LEAD PRESSMAN XR CHEST 1 VIEW IP Routine 06/08/2023 7:33 PM LEAD PRESSMAN PEP THERAPY Routine 06/08/2023 6:00 PM LEAD PRESSMAN PEP THERAPY Routine 06/08/2023 4:43 PM LEAD PRESSMAN PEP THERAPY Routine 06/08/2023 4:43 PM LEAD PRESSMAN PEP THERAPY Routine 06/08/2023 4:43 PM LEAD PRESSMAN CRITICAL CARE Routine 06/08/2023 7:32 AM LEAD PRESSMAN Dissection of abdominal aorta (CMS/HCC) (HCC) LACTATE Routine 06/08/2023 12:03 AM LEAD PRESSMAN EGFR Routine 06/08/2023 12:03 AM LEAD PRESSMAN CBC WITHOUT DIFFERENTIAL Routine 06/08/2023 12:03 AM LEAD PRESSMAN TYPE AND SCREEN Timed 06/08/2023 12:03 AM LEAD PRESSMAN PHOSPHORUS Routine 06/08/2023 12:03 AM LEAD PRESSMAN MAGNESIUM Routine 06/08/2023 12:03 AM LEAD PRESSMAN BASIC METABOLIC PANEL Routine 06/08/2023 12:03 AM LEAD PRESSMAN XR CHEST 1 VIEW IP Routine 06/07/2023 9:36 PM LEAD PRESSMAN CRITICAL CARE Routine 06/07/2023 7:53 PM LEAD PRESSMAN Dissection of thoracoabdominal aorta (CMS/HCC) (HCC) US LOWER EXTREMITY LEFT LIMITED Timed 06/07/2023 2:29 PM LEAD PRESSMAN CRITICAL CARE Routine 06/07/2023 6:19 AM LEAD PRESSMAN Dissection of abdominal aorta (CMS/HCC) (HCC) EGFR Routine 06/07/2023 12:11 AM LEAD PRESSMAN CBC WITHOUT DIFFERENTIAL Routine 06/07/2023 12:11 AM LEAD PRESSMAN PHOSPHORUS Routine 06/07/2023 12:11 AM LEAD PRESSMAN MAGNESIUM Routine 06/07/2023 12:11 AM LEAD PRESSMAN BASIC METABOLIC PANEL Routine 06/07/2023 12:11 AM LEAD PRESSMAN XR CHEST 1 VIEW IP Routine 06/06/2023 7:40 PM LEAD PRESSMAN CRITICAL CARE Routine 06/06/2023 6:30 PM LEAD PRESSMAN Dissection of abdominal aorta (CMS/HCC) (HCC) EGFR Timed 06/06/2023 8:14 AM LEAD PRESSMAN CBC WITHOUT DIFFERENTIAL Timed 06/06/2023 8:14 AM LEAD PRESSMAN BASIC METABOLIC PANEL Timed 06/06/2023 8:14 AM LEAD PRESSMAN CRITICAL CARE Routine 06/06/2023 7:00 AM LEAD PRESSMAN Dissection of abdominal aorta (CMS/HCC) (HCC) EGFR Routine 06/06/2023 12:06 AM LEAD PRESSMAN CBC WITHOUT DIFFERENTIAL Timed 06/06/2023 12:06 AM LEAD PRESSMAN PHOSPHORUS Routine 06/06/2023 12:06 AM LEAD PRESSMAN MAGNESIUM Routine 06/06/2023 12:06 AM LEAD PRESSMAN BASIC METABOLIC PANEL Routine 06/06/2023 12:06 AM LEAD PRESSMAN XR CHEST 1 VIEW Timed 06/05/2023 7:37 PM LEAD PRESSMAN CRITICAL CARE Routine 06/05/2023 6:37 PM LEAD PRESSMAN Dissection of abdominal aorta (CMS/HCC) (HCC) APTT STAT 06/05/2023 2:53 PM LEAD PRESSMAN PROTIME-INR STAT 06/05/2023 2:53 PM LEAD PRESSMAN EGFR STAT 06/05/2023 1:34 PM LEAD PRESSMAN DIFFERENTIAL AUTO STAT 06/05/2023 1:34 PM LEAD PRESSMAN CBC WITH AUTO DIFFERENTIAL STAT 06/05/2023 1:34 PM LEAD PRESSMAN PHOSPHORUS STAT 06/05/2023 1:34 PM LEAD PRESSMAN MAGNESIUM STAT 06/05/2023 1:34 PM LEAD PRESSMAN BASIC METABOLIC PANEL STAT 06/05/2023 1:34 PM LEAD PRESSMAN CV HYBRID ROOM (DEFAULT ORDERABLE) Routine 06/05/2023 1:15 PM LEAD PRESSMAN Dissection of abdominal aorta (CMS/HCC) (HCC) POCT ACTIVATED CLOTTING TIME, LOW RANGE Routine 06/05/2023 12:42 PM LEAD PRESSMAN POCT ACTIVATED CLOTTING TIME, LOW RANGE Routine 06/05/2023 12:29 PM LEAD PRESSMAN POCT ACTIVATED CLOTTING TIME, LOW RANGE Routine 06/05/2023 11:49 AM LEAD PRESSMAN TRANSFUSE RED BLOOD CELLS Routine 06/05/2023 11:36 AM LEAD PRESSMAN POCT ACTIVATED CLOTTING TIME, LOW RANGE Routine 06/05/2023 11:27 AM LEAD PRESSMAN POC BLOOD GAS AND CHEMISTRIES, ARTERIAL Routine 06/05/2023 11:19 AM LEAD PRESSMAN TRANSFUSE RED BLOOD CELLS Timed 06/05/2023 9:16 AM LEAD PRESSMAN TRANSFUSE RED BLOOD CELLS Timed 06/05/2023 8:21 AM LEAD PRESSMAN PREPARE RBC Timed 06/05/2023 7:54 AM LEAD PRESSMAN CRITICAL CARE Routine 06/05/2023 6:40 AM LEAD PRESSMAN Dissection of abdominal aorta (CMS/HCC) (HCC) EGFR Timed 06/05/2023 5:27 AM LEAD PRESSMAN LACTATE, WHOLE BLOOD Timed 06/05/2023 5:27 AM LEAD PRESSMAN CBC WITHOUT DIFFERENTIAL Timed 06/05/2023 5:27 AM LEAD PRESSMAN TRIGLYCERIDES Timed 06/05/2023 5:27 AM LEAD PRESSMAN PHOSPHORUS Routine 06/05/2023 5:27 AM LEAD PRESSMAN MAGNESIUM Routine 06/05/2023 5:27 AM LEAD PRESSMAN BASIC METABOLIC PANEL Timed 06/05/2023 5:27 AM LEAD PRESSMAN EGFR Timed 06/04/2023 11:59 PM LEAD PRESSMAN LACTATE, WHOLE BLOOD Timed 06/04/2023 11:59 PM LEAD PRESSMAN CBC WITHOUT DIFFERENTIAL Timed 06/04/2023 11:59 PM LEAD PRESSMAN PHOSPHORUS Timed 06/04/2023 11:59 PM LEAD PRESSMAN MAGNESIUM Timed 06/04/2023 11:59 PM LEAD PRESSMAN BASIC METABOLIC PANEL Timed 06/04/2023 11:59 PM LEAD PRESSMAN XR CHEST 1 VIEW IP Routine 06/04/2023 8:53 PM LEAD PRESSMAN CRITICAL CARE Routine 06/04/2023 6:46 PM LEAD PRESSMAN Dissection of abdominal aorta (CMS/HCC) (HCC) EGFR Timed 06/04/2023 5:33 PM LEAD PRESSMAN LACTATE, WHOLE BLOOD Timed 06/04/2023 5:33 PM LEAD PRESSMAN CBC WITHOUT DIFFERENTIAL Timed 06/04/2023 5:33 PM LEAD PRESSMAN BASIC METABOLIC PANEL Timed 06/04/2023 5:33 PM LEAD PRESSMAN US DOPPLER RENAL ARTERY LIMITED Critical/Life- Threatening 06/04/2023 12:27 PM LEAD PRESSMAN EGFR Timed 06/04/2023 11:37 AM LEAD PRESSMAN LACTATE, WHOLE BLOOD Timed 06/04/2023 11:37 AM LEAD PRESSMAN PROTIME-INR Timed 06/04/2023 11:37 AM LEAD PRESSMAN CBC WITHOUT DIFFERENTIAL Timed 06/04/2023 11:37 AM LEAD PRESSMAN BASIC METABOLIC PANEL Timed 06/04/2023 11:37 AM LEAD PRESSMAN EGFR Routine 06/04/2023 6:09 AM LEAD PRESSMAN LACTATE, WHOLE BLOOD Timed 06/04/2023 6:09 AM LEAD PRESSMAN CBC WITHOUT DIFFERENTIAL Timed 06/04/2023 6:09 AM LEAD PRESSMAN PHOSPHORUS Routine 06/04/2023 6:09 AM LEAD PRESSMAN MAGNESIUM Routine 06/04/2023 6:09 AM LEAD PRESSMAN BASIC METABOLIC PANEL Routine 06/04/2023 6:09 AM LEAD PRESSMAN BLOOD GAS, ARTERIAL STAT 06/04/2023 2:33 AM LEAD PRESSMAN APTT STAT 06/04/2023 1:54 AM LEAD PRESSMAN PROTIME-INR STAT 06/04/2023 1:54 AM LEAD PRESSMAN TYPE AND SCREEN STAT 06/04/2023 1:54 AM LEAD PRESSMAN ND ARTL CATHJ/CANNULJ MNTR/TRANSFUSION SPX PRQ Routine 06/04/2023 1:26 AM LEAD PRESSMAN Dissection of abdominal aorta (CMS/HCC) (HCC) LACTATE, WHOLE BLOOD Timed 06/04/2023 1:00 AM LEAD PRESSMAN EGFR STAT 06/04/2023 12:42 AM LEAD PRESSMAN CALCIUM, IONIZED STAT 06/04/2023 12:42 AM LEAD PRESSMAN CBC WITHOUT DIFFERENTIAL STAT 06/04/2023 12:42 AM LEAD PRESSMAN PHOSPHORUS STAT 06/04/2023 12:42 AM LEAD PRESSMAN MAGNESIUM STAT 06/04/2023 12:42 AM LEAD PRESSMAN BASIC METABOLIC PANEL STAT 06/04/2023 12:42 AM LEAD PRESSMAN ND CRITICAL CARE ILL/INJURED PATIENT INIT 30-74 MIN Routine 06/03/2023 10:14 PM LEAD PRESSMAN TROPONIN I HIGH-SENSITIVITY 4-HOUR Timed 06/03/2023 10:07 PM LEAD PRESSMAN LACTATE STAT 06/03/2023 10:07 PM LEAD PRESSMAN URINALYSIS AND REFLEX TO MICROSCOPIC STAT 06/03/2023 10:07 PM LEAD PRESSMAN URINALYSIS, MICROSCOPIC ONLY STAT 06/03/2023 10:07 PM LEAD PRESSMAN TROPONIN I HIGH-SENSITIVITY 2-HOUR Timed 06/03/2023 8:21 PM LEAD PRESSMAN CTA CHEST ABDOMEN PELVIS ED 06/03/2023 7:19 PM LEAD PRESSMAN POCUS RETROPERITONEAL (AAA OR RENAL) 06/03/2023 6:53 PM LEAD PRESSMAN POCT CREATININE - DEVICE Routine 06/03/2023 6:36 PM LEAD PRESSMAN TROPONIN I HIGH-SENSITIVITY SERIES (BASELINE, 2HR, 4HR, 6HR) STAT 06/03/2023 6:30 PM LEAD PRESSMAN EGFR STAT 06/03/2023 6:30 PM LEAD PRESSMAN DIFFERENTIAL AUTO STAT 06/03/2023 6:30 PM LEAD PRESSMAN CBC WITH AUTO DIFFERENTIAL STAT 06/03/2023 6:30 PM LEAD PRESSMAN LIPASE STAT 06/03/2023 6:30 PM LEAD PRESSMAN COMPREHENSIVE METABOLIC PANEL STAT 06/03/2023 6:30 PM LEAD PRESSMAN ECG 12-LEAD STAT 06/03/2023 6:18 PM LEAD PRESSMAN documented in this encounter Results * eGFR (06/11/2023 3:21 AM LEAD PRESSMAN) eGFR >90 >=60 mL/min/1. 73 m2 [facility] Comment: Interpretive Data Reference Interval Normal ?>/= [...] last reviewed 2021. Blood 06/11/2023 3:21 AM LEAD PRESSMAN 06/11/2023 3:32 AM LEAD PRESSMAN us Nikhil Samuel MD LAB BLOOD ORDERABLES Sally zhang Result [facility] [place] [address] * (ABNORMAL) Differential, auto (06/11/2023 3:21 AM LEAD PRESSMAN) Neutrophil abs 5.4 1.5 - 6.5 K/cumm [facility] Imm gran abs 0.1 0.0 - 0.1 K/cumm [facility] Lymphocyte abs 2.1 0.8 - 3.3 K/cumm [facility] Monocyte abs 1.1(H) 0.2 - 0.8 K/cumm [facility] Eosinophil abs 0.1 0.0 - 0.5 K/cumm [facility] Basophil abs 0.1 0.0 - 0.1 K/cumm [facility] Neutrophil pct 61.3 % [facility] Comment: Interpretive Data Percent cell count reference ranges are not reported, since discordance with absolute values may lead to misinterpretation of CBC data. Current Interpretive Data was last revised on 2017. Imm gran pct 0.8 % [facility] Comment: Interpretive Data Percent cell count reference ranges are not reported, since discordance with absolute values may lead to misinterpretation of CBC data. Current Interpretive Data was last revised on 2017. Lymphocyte pct 23.5 % [facility] Comment: Interpretive Data Percent cell count reference ranges are not reported, since discordance with absolute values may lead to misinterpretation of CBC data. Current Interpretive Data was last revised on 2017. Monocyte pct 13.0 % [facility] Comment: Interpretive Data Percent cell count reference ranges are not reported, since discordance with absolute values may lead to misinterpretation of CBC data. Current Interpretive Data was last revised on 2017. Eosinophil pct 0.8 % [facility] Comment: Interpretive Data Percent cell count reference ranges are not reported, since discordance with absolute values may lead to misinterpretation of CBC data. Current Interpretive Data was last revised on 2017. Basophil pct 0.6 % [facility] Comment: Interpretive Data Percent cell count reference ranges are not reported, since discordance with absolute values may lead to misinterpretation of CBC data. Current Interpretive Data was last revised on 2017. Blood 06/11/2023 3:21 AM LEAD PRESSMAN 06/11/2023 3:32 AM LEAD PRESSMAN Nikhil Samuel MD LAB BLOOD ORDERABLES Sally l Result [facility] [place] [address] * Basic metabolic panel (06/11/2023 3:21 AM LEAD PRESSMAN) Sodium 143 135 - 145 mmol/L [facility] Potassium, pl 3.8 3.3 - 4.9 mmol/L [facility] Chloride 107 97 - 110 mmol/L [facility] CO2 23 22 - 32 mmol/L [facility] Anion gap 13 2 - 15 mmol/L [facility] BUN 12 6 - 25 mg/dL [facility] Creatinine 0.80 0.80 - 1.30 mg/dL [facility] Glucose 107 70 - 199 mg/dL [facility] Comment: Interpretive Data Fasting glucose [...] 2022. Calcium 9.1 8.5 - 10.3 mg/dL [facility] Blood 06/11/2023 3:21 AM LEAD PRESSMAN 06/11/2023 3:32 AM LEAD PRESSMAN us Nikhil Samuel MD LAB BLOOD ORDERABLES Sally l Result Performing Organization Address [facility] Co de Phone Number [facility] [place] [address] * (ABNORMAL) CBC with auto differential (06/11/2023 3:21 AM LEAD PRESSMAN) WBC 8.7 3.8 - 9.9 K/cumm [facility] Hgb 10.2(L) 13.0 - 17.5 g/dL [facility] Hct 32.6(L) 38.9 - 50.3 % [facility] Plt 334 150 - 400 K/cumm [facility] MPV 9.1 9.1 - 12.3 fL [facility] RBC 3.63(L) 4.30 - 5.80 M/cumm [facility] MCV 89.8 81.3 - 96.4 fL [facility] MCH 28.1 27.1 - 33.3 pg [facility] MCHC 31.3(L) 32.3 - 35.7 g/dL [facility] RDW CV 13.7 11.1 - 14.9 % [facility] RDW SD 44.8 35.7 - 48.1 fL [facility] NRBC abs 0.00 0.00 - 0.01 K/cumm [facility] Blood 06/11/2023 3:21 AM LEAD PRESSMAN 06/11/2023 3:32 AM LEAD PRESSMAN us Nikhil Samuel MD LAB BLOOD ORDERABLES Sally l Result Performing Organization Address City/[facility]/ZIP Co de Phone Number [facility] [place] [address] * (ABNORMAL) Phosphorus (06/11/2023 3:21 AM LEAD PRESSMAN) Pathologist [facility] Phosphorus, pl 4.7(H) 2.3 - 4.5 mg/dL [facility] Blood 06/11/2023 3:21 AM LEAD PRESSMAN 06/11/2023 3:32 AM LEAD PRESSMAN Sreekanth Armstrong NP LAB BLOOD ORDERABLES Sally l Result Performing Organization Address [facility] de Phone Number [facility] [place] [address] * Magnesium (06/11/2023 3:21 AM LEAD PRESSMAN) [facility] Magnesium 2.3 1.4 - 2.5 mg/dL [facility] Blood 06/11/2023 3:21 AM LEAD PRESSMAN 06/11/2023 3:32 AM LEAD PRESSMAN Sreekanth Armstrong NP LAB BLOOD ORDERABLES Sally l Result Performing Organization Address [facility] de Phone Number [facility] [place] [address] * Type and screen (06/11/2023 3:21 AM LEAD PRESSMAN) Pathologist [facility] ABO Rh A Positive Ellen, indirect Negative [facility] Blood 06/11/2023 3:21 AM LEAD PRESSMAN 06/11/2023 3:47 AM LEAD PRESSMAN Narrative [facility] - 06/11/2023 4:36 AM LEAD PRESSMAN Has the patient had Daratumumab or Isatuximab in the past 6 months?->Unknown Sreekanth Armstrong NP LAB BLOOD BANK TEST ORDER CAROLINE Final Result Performing Organization Address [facility] Co de Phone Number [facility] [place] [address] * XR Chest 1 View (06/10/2023 7:25 PM LEAD PRESSMAN) Anatomical Region Laterality Modality Body, Chest N/A Computed Radiogr aphy 06/10/2023 7:29 PM LEAD PRESSMAN Impressions 06/10/2023 7:29 PM LEAD PRESSMAN The current study is compared with the prior radiograph dated ??06/09/2023. 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 ??The heart is mildly enlarged. ??There is no pneumothorax.. There is no mass or lymphadenopathy no pleural effusions Electronically signed by: Floridalma Oliva M.D. Narrative 06/10/2023 7:29 PM LEAD PRESSMAN EXAMINATION: 1 view chest radiograph Procedure Note [...] signed by: Floridalma Oliva M.D. Sreekanth Armstrong BATCH FREEZER OPERATOR IMG XR PROCEDURES Final R esult * CTA Chest Abdomen Pelvis (06/10/2023 8:33 AM LEAD PRESSMAN) Anatomical Region Laterality Modality Body N/A Computed Tomogra phy 06/10/2023 11:4 0 AM LEAD PRESSMAN Impressions 06/10/2023 11:53 AM LEAD PRESSMAN Interval expected postoperative changes of inferior extension [...] Bassam Dykes M.D. Narrative 06/10/2023 11:53 AM LEAD PRESSMAN EXAMINATION: ??CT ANGIOGRAPHY OF THE CHEST, ABDOMEN [...] is 45 mm AP x 47 mm [id number], previously 46 x 46 mm when measured similarly on 06/03/2023. ??The maximum diameter of the graft is 33 mm AP x 34 mm [id number], this is at the distal aspect of [...] ??No suspicious osseous lesion. Procedure Note Bassam Dyeks MD PhD - 06/10/2023 EXAMINATION: CT ANGIOGRAPHY [...] is 45 mm AP x 47 mm [id number], previously 46 x 46 mm when measured similarly on 06/03/2023. The maximum diameter of the graft is 33 mm AP x 34 mm [id number], this is at the distal aspect of [...] signed by: Bassam Dykes M.D. Bettie Wheeler BATCH FREEZER OPERATOR IMG CT PROCEDURES Fin al Result * (ABNORMAL) Basic metabolic panel (06/10/2023 5:24 AM LEAD PRESSMAN) Sodium 141 135 - 145 mmol/L [facility] Potassium, pl 3.5 3.3 - 4.9 mmol/L [facility] Chloride 104 97 - 110 mmol/L [facility] CO2 26 22 - 32 mmol/L [facility] Anion gap 11 2 - 15 mmol/L [facility] BUN 11 6 - 25 mg/dL [facility] Creatinine 0.77(L) 0.80 - 1.30 mg/dL [facility] Glucose 108 70 - 199 mg/dL [facility] Comment: Interpretive Data Fasting glucose [...] Calcium 9.2 8.5 - 10.3 mg/dL [facility] Blood 06/10/2023 5:24 AM LEAD PRESSMAN 06/10/2023 5:45 AM LEAD PRESSMAN us Nikhil Samuel MD LAB BLOOD ORDERABLES Sally leatha Result [facility] [place] [address] * eGFR (06/10/2023 5:24 AM LEAD PRESSMAN) eGFR >90 >=60 mL/min/1. 73 m2 [facility] Comment: Interpretive Data Reference Interval Normal ?>/= [...] last reviewed 2021. Blood 06/10/2023 5:24 AM LEAD PRESSMAN 06/10/2023 5:45 AM LEAD PRESSMAN us Nikhil Samuel MD LAB BLOOD ORDERABLES Sally zhang Result [facility] [place] [address] * (ABNORMAL) Differential, auto (06/10/2023 5:24 AM LEAD PRESSMAN) Neutrophil abs 5.8 1.5 - 6.5 K/cumm [facility] Imm gran abs 0.1 0.0 - 0.1 K/cumm [facility] Lymphocyte abs 2.2 0.8 - 3.3 K/cumm [facility] Monocyte abs 1.3(H) 0.2 - 0.8 K/cumm [facility] Eosinophil abs 0.1 0.0 - 0.5 K/cumm [facility] Basophil abs 0.0 0.0 - 0.1 K/cumm [facility] Neutrophil pct 60.9 % [facility] Comment: Interpretive Data Percent cell count reference ranges are not reported, since discordance with absolute values may lead to misinterpretation of CBC data. Current Interpretive Data was last revised on 2017. Imm gran pct 1.1 % [facility] Comment: Interpretive Data Percent cell count reference ranges are not reported, since discordance with absolute values may lead to misinterpretation of CBC data. Current Interpretive Data was last revised on 2017. Lymphocyte pct 23.0 % [facility] Comment: Interpretive Data Percent cell count reference ranges are not reported, since discordance with absolute values may lead to misinterpretation of CBC data. Current Interpretive Data was last revised on 2017. Monocyte pct 13.7 % [facility] [place] [facility] Comment: Interpretive Data Percent cell count reference ranges are not reported, since discordance with absolute values may lead to misinterpretation of CBC data. Current Interpretive Data was last revised on 2017. Eosinophil pct 0.9 % [facility] Comment: Interpretive Data Percent cell count reference ranges are not reported, since discordance with absolute values may lead to misinterpretation of CBC data. Current Interpretive Data was last revised on 2017. Basophil pct 0.4 % [facility] [place] Comment: Interpretive Data Percent cell count reference ranges are not reported, since discordance with absolute values may lead to misinterpretation of CBC data. Current Interpretive Data was last revised on 2017. Blood 06/10/2023 5:24 AM LEAD PRESSMAN 06/10/2023 5:45 AM LEAD PRESSMAN Nikhil Samuel MD LAB BLOOD ORDERABLES Sally l Result Performing Organization Address City/[facility]/ZIP Co de Phone Number [facility] [place] [address] * (ABNORMAL) CBC with auto differential (06/10/2023 5:24 AM LEAD PRESSMAN) WBC 9.5 3.8 - 9.9 K/cumm [facility] Hgb 10.7(L) 13.0 - 17.5 g/dL [facility] Hct 32.8(L) 38.9 - 50.3 % [facility] Plt 333 150 - 400 K/cumm [facility] MPV 9.0(L) 9.1 - 12.3 fL [facility] RBC 3.67(L) 4.30 - 5.80 M/cumm [facility] MCV 89.4 81.3 - 96.4 fL [facility] MCH 29.2 27.1 - 33.3 pg [facility] MCHC 32.6 32.3 - 35.7 g/dL [facility] RDW CV 13.7 11.1 - 14.9 % [facility] RDW SD 45.1 35.7 - 48.1 fL [facility] NRBC abs 0.00 0.00 - 0.01 K/cumm [facility] Blood 06/10/2023 5:24 AM LEAD PRESSMAN 06/10/2023 5:45 AM LEAD PRESSMAN us Nikhil Samuel MD LAB BLOOD ORDERABLES Sally l Result Performing Organization Address City/[facility]/ZIP Co de Phone Number [facility] [place] [address] * Phosphorus (06/10/2023 5:24 AM LEAD PRESSMAN) Phosphorus, pl 3.5 2.3 - 4.5 mg/dL [facility] Blood 06/10/2023 5:24 AM LEAD PRESSMAN 06/10/2023 5:45 AM LEAD PRESSMAN Sreekanth Armstrong BATCH FREEZER OPERATOR LAB BLOOD ORDERABLES Sally l Result Performing Organization Address [facility] Co de Phone Number [facility] [place] [address] * Magnesium (06/10/2023 5:24 AM LEAD PRESSMAN) Pathologist [facility] Magnesium 2.4 1.4 - 2.5 mg/dL [facility] Blood 06/10/2023 5:24 AM LEAD PRESSMAN 06/10/2023 5:45 AM LEAD PRESSMAN Sreekanth Armstrong BATCH FREEZER OPERATOR LAB BLOOD ORDERABLES Sally l Result Performing Organization Address [facility] de Phone Number [facility] [place] [address] * XR Chest 1 View (06/09/2023 6:36 PM LEAD PRESSMAN) Anatomical Region Laterality Modality Body, Chest N/A Computed Radiogr aphy 06/10/2023 8:59 AM LEAD PRESSMAN Impressions 06/10/2023 9:23 AM LEAD PRESSMAN Again noted is changes of thoracic and [...] James Alvarado M.D. Narrative 06/10/2023 9:23 AM LEAD PRESSMAN EXAMINATION: 1 view chest radiograph Comparison to [...] by: James Alvarado M.D. us Sreekanth Armstrong BATCH FREEZER OPERATOR IMG XR PROCEDURES Final R esult * eGFR (06/08/2023 8:53 PM LEAD PRESSMAN) eGFR >90 >=60 mL/min/1. 73 m2 [facility] [place] Comment: Interpretive Data Reference Interval Normal ?>/= [...] last reviewed 2021. Blood 06/08/2023 8:53 PM LEAD PRESSMAN 06/08/2023 9:33 PM LEAD PRESSMAN Sreekanth Armstrong BATCH FREEZER OPERATOR LAB BLOOD ORDERABLES Sally l Result Performing Organization Address City/[facility]/ZIP Co de Phone Number [facility] [address] * (ABNORMAL) Phosphorus (06/08/2023 8:53 PM LEAD PRESSMAN) Phosphorus, pl 2.1(L) 2.3 - 4.5 mg/dL [facility] Blood 06/08/2023 8:53 PM LEAD PRESSMAN 06/08/2023 9:33 PM LEAD PRESSMAN Sreekanth Armstrong BATCH FREEZER OPERATOR LAB BLOOD ORDERABLES Sally l Result Performing Organization Address [facility] Co de Phone Number [facility] [address] * Magnesium (06/08/2023 8:53 PM LEAD PRESSMAN) Magnesium 2.3 1.4 - 2.5 mg/dL [facility] Blood 06/08/2023 8:53 PM LEAD PRESSMAN 06/08/2023 9:33 PM LEAD PRESSMAN Sreekanth Armstrong BATCH FREEZER OPERATOR LAB BLOOD ORDERABLES Sally l Result Performing Organization Address [facility] [place] [address] * Basic metabolic panel (06/08/2023 8:53 PM LEAD PRESSMAN) Sodium 136 135 - 145 mmol/L [facility] Potassium, pl 3.7 3.3 - 4.9 mmol/L [facility] Chloride 101 97 - 110 mmol/L [facility] CO2 26 22 - 32 mmol/L [facility] Anion gap 9 2 - 15 mmol/L [facility] BUN 17 6 - 25 mg/dL [facility] Creatinine 1.01 0.80 - 1.30 mg/dL [facility] Glucose 164 70 - 199 mg/dL [facility] Comment: Interpretive Data Fasting glucose [...] 2022. Calcium 8.6 8.5 - 10.3 mg/dL [facility] Blood 06/08/2023 8:5 3 PM LEAD PRESSMAN 06/08/2023 9:33 PM LEAD PRESSMAN Sreekanth Armstrong NP LAB BLOOD ORDERABLES Sally zhang Result [facility] [place] [address] * (ABNORMAL) CBC without differential (06/08/2023 8:53 PM LEAD PRESSMAN) Pathologist [facility] WBC 10.9(H) 3.8 - 9.9 K/cumm [facility] Hgb 9.6(L) 13.0 - 17.5 g/dL [facility] Hct 30.9(L) 38.9 - 50.3 % [facility] Plt 232 150 - 400 K/cumm [facility] MPV 9.4 9.1 - 12.3 fL [facility] RBC 3.42(L) 4.30 - 5.80 M/cumm [facility] MCV 90.4 81.3 - 96.4 fL [facility] MCH 28.1 27.1 - 33.3 pg [facility] MCHC 31.1(L) 32.3 - 35.7 g/dL [facility] RDW CV 14.2 11.1 - 14.9 % [facility] RDW SD 46.9 35.7 - 48.1 fL [facility] NRBC abs 0.00 0.00 - 0.01 K/cumm [facility] Blood 06/08/2023 8:53 PM LEAD PRESSMAN 06/08/2023 9:34 PM LEAD PRESSMAN us Sreekanth Armstrong NP LAB BLOOD ORDERABLES Sally zhang Result [facility] [place] [address] * XR Chest 1 View (06/08/2023 7:33 PM LEAD PRESSMAN) Anatomical Region Laterality Modality Body, Chest N/A Digital Radiogra phy 06/09/2023 8:50 AM LEAD PRESSMAN Impressions 06/09/2023 2:10 PM LEAD PRESSMAN The current study is compared with the [...] Marlee Jimenez M.D. Narrative 06/09/2023 2:10 PM LEAD PRESSMAN EXAMINATION: 1 view chest radiograph Procedure Note [...] esult * Critical Care (06/08/2023 7:32 AM LEAD PRESSMAN) Narrative Mehul Brooks MD - 06/08/2023 7:32 AM LEAD PRESSMAN Sreekanth Armstrong NP ? 06/08/2023 11:46 AM [...] plan with the patient's team and other medical/payroll consultant staff. This time was in addition [...] Final Result * eGFR (06/08/2023 12:03 AM LEAD PRESSMAN) [facility] eGFR >90 >=60 mL/min/1. 73 m2 [...] reviewed 2021. Blood 06/08/2023 12:0 3 AM LEAD PRESSMAN 06/08/2023 12:26 AM LEAD PRESSMAN us Sheila Winters NP LAB BLOOD ORDERABLES F inal Result Performing Organization Address City/[facility]/ZIP Co de Phone Number [facility] [place] [address] * (ABNORMAL) Lactate (06/08/2023 12:03 AM LEAD PRESSMAN) Lactate 0.6(L) 0.7 - 2.0 mmol/L [facility] Blood 06/08/2023 12:0 3 AM LEAD PRESSMAN 06/08/2023 12:27 AM LEAD PRESSMAN us Nikhil Samuel MD LAB BLOOD ORDERABLES Sally l Result [facility] [place] [address] * (ABNORMAL) Basic metabolic panel (06/08/2023 12:03 AM LEAD PRESSMAN) Sodium 135 135 - 145 mmol/L [facility] Potassium, pl 3.5 3.3 - 4.9 mmol/L [facility] Chloride 100 97 - 110 mmol/L [facility] CO2 27 22 - 32 mmol/L [facility] Anion gap 8 2 - 15 mmol/L [facility] BUN 16 6 - 25 mg/dL [facility] Creatinine 0.91 0.80 - 1.30 mg/dL [facility] Glucose 108 70 - 199 mg/dL [facility] Comment: Interpretive Data Fasting glucose [...] 2022. Calcium 8.4(L) 8.5 - 10.3 mg/dL [facility] Blood 06/08/2023 12:0 3 AM LEAD PRESSMAN 06/08/2023 12:26 AM LEAD PRESSMAN Sheila Winters BATCH FREEZER OPERATOR LAB BLOOD ORDERABLES F inal Result [facility] [place] [address] * (ABNORMAL) CBC without differential (06/08/2023 12:03 AM LEAD PRESSMAN) [facility] WBC 11.8(H) 3.8 - 9.9 K/cumm [facility] Hgb 10.9(L) 13.0 - 17.5 g/dL [facility] Hct 31.8(L) 38.9 - 50.3 % [facility] Plt 260 150 - 400 K/cumm [facility] MPV 9.2 9.1 - 12.3 fL [facility] RBC 3.67(L) 4.30 - 5.80 M/cumm [facility] MCV 86.6 81.3 - 96.4 fL [facility] MCH 29.7 27.1 - 33.3 pg [facility] MCHC 34.3 32.3 - 35.7 g/dL [facility] RDW CV 13.8 11.1 - 14.9 % [facility] RDW SD 43.5 35.7 - 48.1 fL [facility] NRBC abs 0.00 0.00 - 0.01 K/cumm [facility] Blood 06/08/2023 12:0 3 AM LEAD PRESSMAN 06/08/2023 12:26 AM LEAD PRESSMAN Sheila Winters BATCH FREEZER OPERATOR LAB BLOOD ORDERABLES F inal Result Performing Organization Address [facility] Co de Phone Number [facility] [place] [address] * Phosphorus (06/08/2023 12:03 AM LEAD PRESSMAN) Phosphorus, pl 2.8 2.3 - 4.5 mg/dL [facility] Blood 06/08/2023 12:0 3 AM LEAD PRESSMAN 06/08/2023 12:26 AM LEAD PRESSMAN Sreekanth Armstrong BATCH FREEZER OPERATOR LAB BLOOD ORDERABLES Sally l Result Performing Organization Address [facility] Co de Phone Number [facility] [place] [address] * Magnesium (06/08/2023 12:03 AM LEAD PRESSMAN) Magnesium 2.2 1.4 - 2.5 mg/dL [facility] Blood 06/08/2023 12:0 3 AM LEAD PRESSMAN 06/08/2023 12:26 AM LEAD PRESSMAN Sreekanth Armstrong BATCH FREEZER OPERATOR LAB BLOOD ORDERABLES Sally l Result Performing Organization Address [facility]/ZIP Co de Phone Number [facility] [place] [address] * Type and screen (06/08/2023 12:03 AM LEAD PRESSMAN) ABO Rh A Positive Ellen, indirect Negative [facility] Blood 06/08/2023 12:0 3 AM LEAD PRESSMAN 06/08/2023 12:30 AM LEAD PRESSMAN Narrative [facility] - 06/08/2023 1:20 AM LEAD PRESSMAN Has the patient had Daratumumab or Isatuximab in the past 6 months?->Unknown Sreekanth Armstrong NP LAB BLOOD BANK TEST ORDER CAROLINE Final Result [facility] [place] [address] * XR Chest 1 View (06/07/2023 9:36 PM LEAD PRESSMAN) Anatomical Region Laterality Modality Body, Chest N/A Computed Radiogr aphy 06/08/2023 9:22 AM LEAD PRESSMAN Impressions 06/08/2023 7:31 PM LEAD PRESSMAN Changes of thoracic and abdominal aortic stent [...] Gen Baker M.D. Narrative 06/08/2023 7:31 PM LEAD PRESSMAN EXAMINATION: 1 view chest radiograph Comparison to [...] by: Gen Baker M.D. Sreekanth Craigdavid Armstrong BATCH FREEZER OPERATOR IMG XR PROCEDURES Final R esult * Critical Care (06/07/2023 7:53 PM LEAD PRESSMAN) Narrative Mehul Brooks MD - 06/07/2023 7:53 PM LEAD PRESSMAN Roldan Campbell PA ? 06/08/2023 ??4:34 AM [...] plan with the ICU team and other medical/payroll consultant staff, making frequent assessments and decisions [...] Lower Extremity Left Limited (06/07/2023 2:29 PM LEAD PRESSMAN) Anatomical Region Laterality Modality Lower Extremities Left Ultrasound 06/07/2023 3:02 PM LEAD PRESSMAN Impressions 06/07/2023 4:09 PM LEAD PRESSMAN 1. No pseudoaneurysm or arteriovenous fistula of the left groin. 2. No groin hematoma. Dictated by: Sherri Banerjee MD The radiology attending physician has personally reviewed this study, and had reviewed and/or edited this written report and agrees with it. Electronically signed by: Monster Easley M.D. Narrative 06/07/2023 4:09 PM LEAD PRESSMAN EXAMINATION: LIMITED LEFT GROIN SONOGRAM AND DOPPLER [...] esult * Critical Care (06/07/2023 6:19 AM LEAD PRESSMAN) Narrative Mehul Brooks MD - 06/07/2023 6:19 AM LEAD PRESSMAN Sreekanth Armstrong NP ? 06/07/2023 ??5:10 PM [...] plan with the ICU team and other medical/payroll consultant staff, making frequent assessments and decisions [...] Final Result * eGFR (06/07/2023 12:11 AM LEAD PRESSMAN) [facility] eGFR >90 >=60 mL/min/1. 73 m2 [facility] Comment: Interpretive Data Reference Interval [...] reviewed 2021. Blood 06/07/2023 12:1 1 AM LEAD PRESSMAN 06/07/2023 12:32 AM LEAD PRESSMAN us Sheila Winters NP LAB BLOOD ORDERABLES F inal Result [facility] [place] [address] * (ABNORMAL) Basic metabolic panel (06/07/2023 12:11 AM LEAD PRESSMAN) Pathologist [facility] Sodium 134(L) 135 - 145 mmol/L [facility] Potassium, pl 3.7 3.3 - 4.9 mmol/L [facility] Chloride 97 97 - 110 mmol/L [facility] CO2 28 22 - 32 mmol/L [facility] Anion gap 9 2 - 15 mmol/L [facility] BUN 8 6 - 25 mg/dL [facility] Creatinine 0.80 0.80 - 1.30 mg/dL [facility] Glucose 114 70 - 199 mg/dL [facility] Comment: Interpretive Data Fasting glucose [...] 2022. Calcium 8.5 8.5 - 10.3 mg/dL [facility] Blood 06/07/2023 12:1 1 AM LEAD PRESSMAN 06/07/2023 12:32 AM LEAD PRESSMAN Sheila Winters BATCH FREEZER OPERATOR LAB BLOOD ORDERABLES F inal Result Performing Organization Address [facility] Co de Phone Number [facility] [place] [address] * (ABNORMAL) CBC without differential (06/07/2023 12:11 AM LEAD PRESSMAN) WBC 11.2(H) 3.8 - 9.9 K/cumm [facility] Hgb 11.1(L) 13.0 - 17.5 g/dL [facility] Hct 33.1(L) 38.9 - 50.3 % [facility] Plt 270 150 - 400 K/cumm [facility] MPV 9.3 9.1 - 12.3 fL [facility] RBC 3.82(L) 4.30 - 5.80 M/cumm [facility] MCV 86.6 81.3 - 96.4 fL [facility] MCH 29.1 27.1 - 33.3 pg [facility] MCHC 33.5 32.3 - 35.7 g/dL [facility] RDW CV 13.4 11.1 - 14.9 % [facility] RDW SD 42.0 35.7 - 48.1 fL [facility] NRBC abs 0.00 0.00 - 0.01 K/cumm [facility] Blood 06/07/2023 12:1 1 AM LEAD PRESSMAN 06/07/2023 12:32 AM LEAD PRESSMAN Sheila Winters NP LAB BLOOD ORDERABLES F inal Result Performing Organization Address City/[facility]/ZIP Co de Phone Number [facility] [place] [address] * (ABNORMAL) Phosphorus (06/07/2023 12:11 AM LEAD PRESSMAN) Phosphorus, pl 2.0(L) 2.3 - 4.5 mg/dL [facility] Blood 06/07/2023 12:1 1 AM LEAD PRESSMAN 06/07/2023 12:32 AM LEAD PRESSMAN Sreekanth Armstrong BATCH FREEZER OPERATOR LAB BLOOD ORDERABLES Sally l Result Performing Organization Address [facility]/ZIP Co de Phone Number [facility] [place] [address] * Magnesium (06/07/2023 12:11 AM LEAD PRESSMAN) Magnesium 2.1 1.4 - 2.5 mg/dL [facility] Blood 06/07/2023 12:1 1 AM LEAD PRESSMAN 06/07/2023 12:32 AM LEAD PRESSMAN Sreekanth Armstrong BATCH FREEZER OPERATOR LAB BLOOD ORDERABLES Sally l Result Performing Organization Address [facility] de Phone Number [facility] [place] [address] * XR Chest 1 View (06/06/2023 7:40 PM LEAD PRESSMAN) Anatomical Region Laterality Modality Body, Chest N/A Computed Radiogr aphy 06/07/2023 9:17 AM LEAD PRESSMAN Impressions 06/07/2023 12:50 PM LEAD PRESSMAN Changes of aortic vascular stent extending the [...] Taco Wallace M.D. Narrative 06/07/2023 12:50 PM LEAD PRESSMAN EXAMINATION: 1 view chest radiograph Comparison made [...] Result * Critical Care (06/06/2023 6:30 PM LEAD PRESSMAN) Narrative Mehul Brooks MD - 06/06/2023 6:30 PM LEAD PRESSMAN Benny Isaacs NP ? 06/07/2023 ??4:28 AM [...] plan with the ICU team and other medical/payroll consultant staff, making frequent assessments and decisions [...] in the medical record us Benny Isaacs BATCH FREEZER OPERATOR IN CLINIC/BEDSIDE ORDERABLES F inal Result * eGFR (06/06/2023 8:14 AM LEAD PRESSMAN) [facility] eGFR >90 >=60 mL/min/1. 73 m2 JAIRON REWIN Comment: Interpretive Data Reference Interval Normal ?>/= [...] last reviewed 2021. Blood 06/06/2023 8:14 AM LEAD PRESSMAN 06/06/2023 8:45 AM LEAD PRESSMAN us Sheila Winters BATCH FREEZER OPERATOR LAB BLOOD ORDERABLES F inal Result [facility] Department of Laboratories [place], [place] [id number] * (ABNORMAL) CBC without differential (06/06/2023 8:14 AM LEAD PRESSMAN) [facility] WBC 8.9 3.8 - 9.9 K/cumm [facility] Hgb 10.7(L) 13.0 - 17.5 g/dL [facility] Hct 32.6(L) 38.9 - 50.3 % [facility] Plt 254 150 - 400 K/cumm [facility] MPV 8.9(L) 9.1 - 12.3 fL [facility] RBC 3.74(L) 4.30 - 5.80 M/cumm [facility] MCV 87.2 81.3 - 96.4 fL [facility] MCH 28.6 27.1 - 33.3 pg [facility] MCHC 32.8 32.3 - 35.7 g/dL [facility] RDW CV 13.4 11.1 - 14.9 % [facility] RDW SD 42.4 35.7 - 48.1 fL [facility] NRBC abs 0.00 0.00 - 0.01 K/cumm [facility] Blood 06/06/2023 8:14 AM LEAD PRESSMAN 06/06/2023 8:27 AM LEAD PRESSMAN Sheila Winters BATCH FREEZER OPERATOR LAB BLOOD ORDERABLES F inal Result [facility] [place] [address] * (ABNORMAL) Basic metabolic panel (06/06/2023 8:14 AM LEAD PRESSMAN) Pathologist [facility] Sodium 137 135 - 145 mmol/L [facility] Potassium, pl 3.6 3.3 - 4.9 mmol/L [facility] Chloride 100 97 - 110 mmol/L [facility] CO2 30 22 - 32 mmol/L [facility] Anion gap 7 2 - 15 mmol/L [facility] BUN 7 6 - 25 mg/dL [facility] Creatinine 0.91 0.80 - 1.30 mg/dL [facility] Glucose 97 70 - 199 mg/dL [facility] Comment: Interpretive Data Fasting glucose [...] mg/dL JAIRON ERWIN Blood 06/06/2023 8:14 AM LEAD PRESSMAN 06/06/2023 8:27 AM LEAD PRESSMAN us Sheila Winters NP LAB BLOOD ORDERABLES F inal Result [facility]ON [facility] [place] [address] * Critical Care (06/06/2023 7:00 AM LEAD PRESSMAN) Narrative Mehul Brooks MD - 06/06/2023 7:00 AM LEAD PRESSMAN Sheila Winters NP ? 06/06/2023 11:08 AM [...] plan with the ICU team and other medical/payroll consultant staff, making frequent assessments and decisions [...] * Basic metabolic panel (06/06/2023 12:06 AM LEAD PRESSMAN) Sodium 141 135 - 145 mmol/L [facility] Potassium, pl 3.4 3.3 - 4.9 mmol/L [facility] Chloride 103 97 - 110 mmol/L [facility] CO2 28 22 - 32 mmol/L [facility] Anion gap 10 2 - 15 mmol/L [facility] BUN 9 6 - 25 mg/dL [facility] Creatinine 1.13 0.80 - 1.30 mg/dL [facility] Glucose 100 70 - 199 mg/dL [facility] Comment: Interpretive Data Fasting glucose [...] 2022. Calcium 8.8 8.5 - 10.3 mg/dL [facility] Blood 06/06/2023 12:0 6 AM LEAD PRESSMAN 06/06/2023 12:28 AM LEAD PRESSMAN us Nikhil Samuel MD LAB BLOOD ORDERABLES Sally leatha Result [facility] Department [place] [address] * eGFR (06/06/2023 12:06 AM LEAD PRESSMAN) Pathologist [facility] eGFR 89 >=60 mL/min/1. 73 m2 [facility] Comment: Interpretive Data Reference Interval [...] reviewed 2021. Blood 06/06/2023 12:0 6 AM LEAD PRESSMAN 06/06/2023 12:40 AM LEAD PRESSMAN us Nikhil Samuel MD LAB BLOOD ORDERABLES Sally l Result [facility] [place] [address] * Phosphorus (06/06/2023 12:06 AM LEAD PRESSMAN) Phosphorus, pl 3.1 2.3 - 4.5 mg/dL [facility] Comment:Reviewed Blood 06/06/2023 12:0 6 AM LEAD PRESSMAN 06/06/2023 12:28 AM LEAD PRESSMAN us Sreekanth Armstrong NP LAB BLOOD ORDERABLES Sally l Result Performing Organization Address City/[facility]/ZIP Co de Phone Number [facility] [place] [address] * Magnesium (06/06/2023 12:06 AM LEAD PRESSMAN) [facility] Magnesium 1.9 1.4 - 2.5 mg/dL [facility] Blood 06/06/2023 12:0 6 AM LEAD PRESSMAN 06/06/2023 12:28 AM LEAD PRESSMAN Sreekanth Armstrong BATCH FREEZER OPERATOR LAB BLOOD ORDERABLES Sally l Result Performing Organization Address [facility] Co de Phone Number [facility] [place] [address] * (ABNORMAL) CBC without differential (06/06/2023 12:06 AM LEAD PRESSMAN) [facility] WBC 9.0 3.8 - 9.9 K/cumm [facility] Hgb 10.2(L) 13.0 - 17.5 g/dL [facility] Hct 30.0(L) 38.9 - 50.3 % [facility] Plt 259 150 - 400 K/cumm [facility] MPV 9.1 9.1 - 12.3 fL [facility] RBC 3.47(L) 4.30 - 5.80 M/cumm [facility] MCV 86.5 81.3 - 96.4 fL [facility] MCH 29.4 27.1 - 33.3 pg [facility] MCHC 34.0 32.3 - 35.7 g/dL [facility] RDW CV 13.6 11.1 - 14.9 % [facility] RDW SD 42.5 35.7 - 48.1 fL [facility] NRBC abs 0.00 0.00 - 0.01 K/cumm [facility] Blood 06/06/2023 12:0 6 AM LEAD PRESSMAN 06/06/2023 12:24 AM LEAD PRESSMAN Sheila Winters NP LAB BLOOD ORDERABLES F inal Result [facility]IRON [facility] [place] [address] * XR Chest 1 View (06/05/2023 7:37 PM LEAD PRESSMAN) Anatomical Region Laterality Modality Body, Chest N/A Computed Radiogr aphy 06/06/2023 7:52 AM LEAD PRESSMAN Impressions 06/06/2023 7:52 AM LEAD PRESSMAN Comparison is made to chest radiograph dated [...] Faiza Su M.D. Narrative 06/06/2023 7:52 AM LEAD PRESSMAN EXAMINATION: 1 view chest radiograph Procedure Note [...] Result * Critical Care (06/05/2023 6:37 PM LEAD PRESSMAN) Narrative Mehul Brooks MD - 06/05/2023 6:37 PM LEAD PRESSMAN Benny Isaacs NP ? 06/06/2023 ??5:13 AM [...] plan with the ICU team and other medical/payroll consultant staff, making frequent assessments and decisions [...] documenting in the medical record Benny Isaacs BATCH FREEZER OPERATOR IN CLINIC/BEDSIDE ORDERABLES F inal Result * Transfuse RBC (06/05/2023 3:17 PM LEAD PRESSMAN) Blood Sreekanth Armstrong BATCH FREEZER OPERATOR BLOOD TRANSFUSION ORDERAB LES Final Result [facility] [place] [address] * aPTT (06/05/2023 2:53 PM LEAD PRESSMAN) aPTT 32 28 - 38 sec [facility] [place] Comment: Interpretive Data Heparin therapeutic range: 66.0 - 100.0 seconds. Range based on correlation with therapeutic heparin activity range of 0.3 - 0.7 Units/mL. Current interpretive data was last revised on 2023. Blood 06/05/2023 2:53 PM LEAD PRESSMAN 06/05/2023 3:05 PM LEAD PRESSMAN Sheila Winters BATCH FREEZER OPERATOR LAB BLOOD ORDERABLES F inal Result Performing Organization Address [facility] de Phone Number [facility] [place] [address] * (ABNORMAL) Protime-INR (06/05/2023 2:53 PM LEAD PRESSMAN) PT 15.3(H) 10.3 - 13.7 sec [facility] INR 1.34(H) 0.90 - 1.20 [facility] Comment: Interpretive data Oral anticoagulant therapeutic ranges: Venous thromboembolism prophylaxis or treatment: 2.0-3.0 CARDIOLOGY Standard range: 2.0-3.0 High-intensity range: 2.5-3.5 Refer to indication-specific guidelines for appropriate target ranges for prosthetic heart valve replacement. Current interpretive data was last revised on 2019. Blood 06/05/2023 2:53 PM LEAD PRESSMAN 06/05/2023 3:05 PM LEAD PRESSMAN Sheila Winters BATCH FREEZER OPERATOR LAB BLOOD ORDERABLES F inal Result Performing Organization Address [facility] de Phone Number [facility] [place] [address] * (ABNORMAL) eGFR (06/05/2023 1:34 PM LEAD PRESSMAN) Pathologist [facility] eGFR 54(L) >=60 mL/min/1. 73 m2 [facility] Comment: Interpretive Data Reference Interval [...] last reviewed 2021. Blood 06/05/2023 1:34 PM LEAD PRESSMAN 06/05/2023 2:05 PM LEAD PRESSMAN Sheila Winters BATCH FREEZER OPERATOR LAB BLOOD ORDERABLES F inal Result [facility] [place] [address] * (ABNORMAL) Differential, auto (06/05/2023 1:34 PM LEAD PRESSMAN) Neutrophil abs 10.3(H) 1.5 - 6.5 K/cumm [facility] Imm gran abs 0.3(H) 0.0 - 0.1 K/cumm [facility] Lymphocyte abs 1.3 0.8 - 3.3 K/cumm [facility] Monocyte abs 0.5 0.2 - 0.8 K/cumm [facility] Eosinophil abs 0.1 0.0 - 0.5 K/cumm [facility] Basophil abs 0.0 0.0 - 0.1 K/cumm [facility] Neutrophil pct 82.4 % [facility] Comment: Interpretive Data Percent cell count reference ranges are not reported, since discordance with absolute values may lead to misinterpretation of CBC data. Current Interpretive Data was last revised on 2017. Imm gran pct 2.6 % [facility] Comment: Interpretive Data Percent cell [...] revised on 2017. Monocyte pct 3.8 % [facility] Comment: Interpretive Data Percent cell count reference ranges are not reported, since discordance with absolute values may lead to misinterpretation of CBC data. Current Interpretive Data was last revised on 2017. Eosinophil pct 0.5 % [facility] Comment: Interpretive Data Percent cell count reference ranges are not reported, since discordance with absolute values may lead to misinterpretation of CBC data. Current Interpretive Data was last revised on 2017. Basophil pct 0.2 % [facility] Comment: Interpretive Data Percent cell count reference ranges are not reported, since discordance with absolute values may lead to misinterpretation of CBC data. Current Interpretive Data was last revised on 2017. Blood 06/05/2023 1:34 PM LEAD PRESSMAN 06/05/2023 2:05 PM LEAD PRESSMAN Sheila Winters BATCH FREEZER OPERATOR LAB BLOOD ORDERABLES F inal Result Performing Organization Address City/[facility]/ZIP Co de Phone Number [facility] [place] [address] * (ABNORMAL) Phosphorus (06/05/2023 1:34 PM LEAD PRESSMAN) Pathologist [facility] Phosphorus, pl 5.8(H) 2.3 - 4.5 mg/dL [facility] Blood 06/05/2023 1:34 PM LEAD PRESSMAN 06/05/2023 2:05 PM LEAD PRESSMAN Sheila Wniters BATCH FREEZER OPERATOR LAB BLOOD ORDERABLES F inal Result Performing Organization Address City/[facility]/ZIP Co de Phone Number [facility] [place] [address] * Magnesium (06/05/2023 1:34 PM LEAD PRESSMAN) Pathologist [facility] Magnesium 2.1 1.4 - 2.5 mg/dL [facility] Blood 06/05/2023 1:34 PM LEAD PRESSMAN 06/05/2023 2:05 PM LEAD PRESSMAN Sheila Winters NP LAB BLOOD ORDERABLES F inal Result Performing Organization Address City/[facility]/ZIP Co de Phone Number [facility] [place] [address] * (ABNORMAL) Basic metabolic panel (06/05/2023 1:34 PM LEAD PRESSMAN) [facility] Sodium 139 135 - 145 mmol/L [facility] Potassium, pl 4.0 3.3 - 4.9 mmol/L [facility] Chloride 104 97 - 110 mmol/L [facility] CO2 23 22 - 32 mmol/L [facility] Anion gap 12 2 - 15 mmol/L [facility] BUN 14 6 - 25 mg/dL [facility] Creatinine 1.71(H) 0.80 - 1.30 mg/dL [facility] Glucose 90 70 - 199 mg/dL [facility] Comment: Interpretive Data Fasting glucose [...] 2022. Calcium 8.7 8.5 - 10.3 mg/dL [facility] Blood 06/05/2023 1:34 PM LEAD PRESSMAN 06/05/2023 2:05 PM LEAD PRESSMAN Sheila Winters NP LAB BLOOD ORDERABLES F inal Result Performing Organization Address [facility] Co de Phone Number [facility] [place] [address] * (ABNORMAL) CBC with auto differential (06/05/2023 1:34 PM LEAD PRESSMAN) [facility] WBC 12.5(H) 3.8 - 9.9 K/cumm [facility] Hgb 10.4(L) 13.0 - 17.5 g/dL [facility] Hct 31.7(L) 38.9 - 50.3 % [facility] Plt 267 150 - 400 K/cumm [facility] MPV 8.8(L) 9.1 - 12.3 fL [facility] RBC 3.59(L) 4.30 - 5.80 M/cumm [facility] MCV 88.3 81.3 - 96.4 fL [facility] MCH 29.0 27.1 - 33.3 pg [facility] MCHC 32.8 32.3 - 35.7 g/dL [facility] RDW CV 13.4 11.1 - 14.9 % [facility] RDW SD 43.4 35.7 - 48.1 fL [facility] NRBC abs 0.00 0.00 - 0.01 K/cumm [facility] Blood 06/05/2023 1:34 PM LEAD PRESSMAN 06/05/2023 2:05 PM LEAD PRESSMAN us Sheila Winters BATCH FREEZER OPERATOR LAB BLOOD ORDERABLES F inal Result [facility] [place] [address] * THORACIC ENDOVASCULAR REPAIR - AORTIC (06/05/2023 1:15 PM LEAD PRESSMAN) Anatomical Region Laterality Modality X-Ray Angiograph y Narrative 06/05/2023 1:51 PM LEAD PRESSMAN Please see OpNote for result. us Nikhil Samuel MD SURGICAL CASE ORDERS Sally l Result * POCT Activated clotting time, low range (06/05/2023 12:42 PM LEAD PRESSMAN) ACT 150 123 - 168 sec [facility] POC Performer [id number] [facility] POC Device Number [id number] [facility] Blood 06/05/2023 12:4 2 PM LEAD PRESSMAN 06/05/2023 12:42 PM LEAD PRESSMAN us Nikhil Samuel MD LAB POCT ORDERABLES - DEV ICE Final Result Performing Organization Address [facility]/ZIP Co de Phone Number [facility] [place] [address] * (ABNORMAL) POCT Activated clotting time, low range (06/05/2023 12:29 PM LEAD PRESSMAN) ACT 219(H) 123 - 168 sec [facility] POC Performer [id number] [facility] POC Device Number [id number] [facility] Blood 06/05/2023 12:2 9 PM LEAD PRESSMAN 06/05/2023 12:29 PM LEAD PRESSMAN us Nikhil Samuel MD LAB POCT ORDERABLES - DEV ICE Final Result Performing Organization Address [facility] Co de Phone Number [facility] [address] * (ABNORMAL) POCT Activated clotting time, low range (06/05/2023 11:49 AM LEAD PRESSMAN) ACT 244(H) 123 - 168 sec [facility] POC Performer [id number] [facility] POC Device Number [id number] [facility] Blood 06/05/2023 11:4 9 AM LEAD PRESSMAN 06/05/2023 11:49 AM LEAD PRESSMAN us Nikhil Samuel MD LAB POCT ORDERABLES - DEV ICE Final Result Performing Organization Address City/[facility] Co de Phone Number [facility] [place] [address] * Transfuse RBC (06/05/2023 11:36 AM LEAD PRESSMAN) Blood us Ney Alex MD BLOOD TRANSFUSION ORD ERABLES Final Result Performing Organization Address City/[facility] Co de Phone Number [facility] [place] [address] * (ABNORMAL) POCT Activated clotting time, low range (06/05/2023 11:27 AM LEAD PRESSMAN) ACT 250(H) 123 - 168 sec [facility] POC Performer [id number] [facility] POC Device Number [id number] [facility] Blood 06/05/2023 11:2 7 AM LEAD PRESSMAN 06/05/2023 11:27 AM LEAD PRESSMAN us Nikhil Samuel MD LAB POCT ORDERABLES - DEV ICE Final Result Performing Organization Address [facility] Co de Phone Number [facility] [place] [address] * (ABNORMAL) POC Blood Gas and Chemistries, Arterial - (06/05/2023 11:19 AM LEAD PRESSMAN) pH, Art POC 7.33(L) 7.35 - 7.45 [facility] pCO2, Art POC 43 35 - 45 mmHg [facility] pO2, Art POC 146(H) 83 - 108 mmHg [facility] Na, POC 139 135 - 145 mmol/L [facility] K POC 4.5 3.3 - 4.9 mmol/L [facility] Comment: Interpretive Data This method is not able to assess for hemolysis, which may falsely increase potassium concentrations. If further testing is needed to evaluate this result, consider in-laboratory plasma potassium. Current Interpretive Data was last revised on 2022. Cl, POC 108 97 - 110 mmol/L [facility] Ionized Ca, POC 4.70 4.50 - 5.10 mg/dL [facility] Glucose, POC 115 70 - 199 mg/dL [facility] Lactate, POC 1.8 0.7 - 2.2 mmol/L [facility] SO2 (natalia) arterial 100(H) 90 - 95 % [facility] Base excess, POC -3.1 mmol/L [facility] HCO3, Art POC 23 20 - 30 mmol/L [facility] Hct, POC 24.0(L) 41.4 - 51.6 % [facility] O2 Sat, Art POC (Calc) 99 % [facility] Total Hb, POC 7.9(L) 13.8 - 17.2 g/dL [facility] Blood 06/05/2023 11:1 9 AM LEAD PRESSMAN 06/05/2023 11:19 AM LEAD PRESSMAN us Nikhil Samuel MD LAB POCT ORDERABLES - DEV ICE Final Result Performing Organization Address [facility] Co de Phone Number [facility] [place] [address] * Transfuse RBC (06/05/2023 9:13 AM LEAD PRESSMAN) Blood us Sreekanth Armstrong NP BLOOD TRANSFUSION ORDERAB LES Final Result Performing Organization Address City/[facility]/ZIP Co de Phone Number [facility] [place] [address] * Prepare RBC: 4 Units (06/05/2023 7:54 AM LEAD PRESSMAN) Product code [id number] [facility] Unit Number [id number]- U [facility] Product Blood Type APOS [facility] Dispense Status PRESUMED TRANSFUSED [facility] Product code [id number] [facility] Unit Number [id number] [facility] Product Blood Type APOS [facility] Dispense Status PRESUMED TRANSFUSED [facility] Product code [id number] Unit Number [id number] [facility] Product Blood Type APOS [facility] Dispense Status RETURNED [facility] Product code [id number] [facility] Unit Number [id number] [facility] Product Blood Type APOS [facility] Dispense Status PRESUMED TRANSFUSED [facility] Blood 06/05/2023 7:54 AM LEAD PRESSMAN 06/05/2023 7:54 AM LEAD PRESSMAN Narrative JAIRON COLON - 06/07/2023 7:41 AM LEAD PRESSMAN Specify Procedure:->EVAR Are special requirements needed? (All products are leukoreduced and CMV- safe)- >No Date required:-[id number] LRRBC # of [id number] Reasons:-Pre-op Hgb <8 g/dL} us Sheila Winters NP BLOOD BANK PRODUCT ORD ERABLES Final Result [facility]ON [facility] [place] [address] * Critical Care (06/05/2023 6:40 AM LEAD PRESSMAN) Narrative Mehul Brooks MD - 06/05/2023 6:40 AM LEAD PRESSMAN Sheila Winters NP ? 06/05/2023 12:01 PM [...] plan with the ICU team and other medical/payroll consultant staff, making frequent assessments and decisions [...] time documenting in the medical record us Sheial Winters NP IN CLINIC/BEDSIDE SHAUNA COLONHARDY Final Result * (ABNORMAL) eGFR (06/05/2023 5:27 AM LEAD PRESSMAN) [facility] eGFR 52(L) >=60 mL/min/1. 73 m2 JAIRON [...] last reviewed 2021. Blood 06/05/2023 5:27 AM LEAD PRESSMAN 06/05/2023 5:38 AM LEAD PRESSMAN us Alonzo Duncan MD LAB BLOOD ORDERABLES Fin al Result [facility] [place] [address] * (ABNORMAL) Phosphorus (06/05/2023 5:27 AM LEAD PRESSMAN) Pathologist [facility] Phosphorus, pl 5.4(H) 2.3 - 4.5 mg/dL [facility] Blood 06/05/2023 5:27 AM LEAD PRESSMAN 06/05/2023 5:38 AM LEAD PRESSMAN Sreekanth Armstrong BATCH FREEZER OPERATOR LAB BLOOD ORDERABLES Sally l Result Performing Organization Address City/[facility]/ZIP Co de Phone Number [facility] [place] [address] * Magnesium (06/05/2023 5:27 AM LEAD PRESSMAN) [facility] Magnesium 2.2 1.4 - 2.5 mg/dL [facility] Blood 06/05/2023 5:27 AM LEAD PRESSMAN 06/05/2023 5:38 AM LEAD PRESSMAN Sreekanth Armstrong NP LAB BLOOD ORDERABLES Sally l Result Performing Organization Address [facility] Co de Phone Number [facility] [place] [address] * Lactate, whole blood (06/05/2023 5:27 AM LEAD PRESSMAN) [facility] Lactate, bld 1.0 0.7 - 2.0 mmol/L [facility] Blood 06/05/2023 5:27 AM LEAD PRESSMAN 06/05/2023 5:33 AM LEAD PRESSMAN Sherlyn Alicea MD LAB BLOOD ORDERABLES F inal Result Performing Organization Address City/[facility] Co de Phone Number [facility] [address] * (ABNORMAL) CBC without differential (06/05/2023 5:27 AM LEAD PRESSMAN) [facility] WBC 8.8 3.8 - 9.9 K/cumm [facility] Hgb 7.8(L) 13.0 - 17.5 g/dL [facility] Hct 23.7(L) 38.9 - 50.3 % [facility] Plt 311 150 - 400 K/cumm [facility] MPV 8.9(L) 9.1 - 12.3 fL [facility] RBC 2.64(L) 4.30 - 5.80 M/cumm [facility] MCV 89.8 81.3 - 96.4 fL [facility] MCH 29.5 27.1 - 33.3 pg [facility] MCHC 32.9 32.3 - 35.7 g/dL [facility] RDW CV 13.1 11.1 - 14.9 % [facility] RDW SD 42.8 35.7 - 48.1 fL [facility] NRBC abs 0.00 0.00 - 0.01 K/cumm [facility] Blood 06/05/2023 5:2 7 AM LEAD PRESSMAN 06/05/2023 5:38 AM LEAD PRESSMAN us Alonzo Duncan MD LAB BLOOD ORDERABLES Fin al Result [facility] [facility] [place] [address] * (ABNORMAL) Basic metabolic panel (06/05/2023 5:27 AM LEAD PRESSMAN) Sodium 140 135 - 145 mmol/L [facility] Potassium, pl 4.1 3.3 - 4.9 mmol/L [facility] Chloride 104 97 - 110 mmol/L [facility] CO2 23 22 - 32 mmol/L [facility] Anion gap 13 2 - 15 mmol/L [facility] BUN 17 6 - 25 mg/dL [facility] Creatinine 1.78(H) 0.80 - 1.30 mg/dL [facility] Glucose 130 70 - 199 mg/dL [facility] Comment: Interpretive Data Fasting glucose [...] Calcium 8.4(L) 8.5 - 10.3 mg/dL [facility] Blood 06/05/2023 5:27 AM LEAD PRESSMAN 06/05/2023 5:38 AM LEAD PRESSMAN us Alonzo Duncan MD LAB BLOOD ORDERABLES Fin al Result [facility] [place] [address] * (ABNORMAL) Triglycerides (06/05/2023 5:27 AM LEAD PRESSMAN) Triglycerides 275(H) <=149 mg/dL [facility] Comment: Interpretive Data Ages < or = [...] revised on 2018. Blood 06/05/2023 5:27 AM LEAD PRESSMAN 06/05/2023 5:38 AM LEAD PRESSMAN Alonzo Duncan MD LAB BLOOD ORDERABLES Fin al Result Performing Organization Address [facility] de Phone Number [facility] [place] [address] * Magnesium (06/04/2023 11:59 PM LEAD PRESSMAN) Pathologist [facility] Magnesium 2.4 1.4 - 2.5 mg/dL [facility] Blood 06/04/2023 11:5 9 PM LEAD PRESSMAN 06/05/2023 12:25 AM LEAD PRESSMAN Result [facility] Alonzo Duncan MD LAB BLOOD ORDERABLES Fin al Result Performing Organization Address [facility] de Phone Number [facility] [address] * (ABNORMAL) Phosphorus (06/04/2023 11:59 PM LEAD PRESSMAN) Pathologist [facility] Phosphorus, pl 6.1(H) 2.3 - 4.5 mg/dL [facility] Blood 06/04/2023 11:5 9 PM LEAD PRESSMAN 06/05/2023 12:25 AM LEAD PRESSMAN Alonzo Duncan MD LAB BLOOD ORDERABLES Fin al Result Performing Organization Address [facility] [place] [address] * (ABNORMAL) eGFR (06/04/2023 11:59 PM LEAD PRESSMAN) eGFR 47(L) >=60 mL/min/1. 73 m2 [facility] Comment: Interpretive Data Reference Interval [...] reviewed 2021. Blood 06/04/2023 11:5 9 PM LEAD PRESSMAN 06/05/2023 12:25 AM LEAD PRESSMAN us Alonzo Duncan MD LAB BLOOD ORDERABLES Fin al Result Performing Organization Address [facility] Co de Phone Number [facility] [place] [address] * Lactate, whole blood (06/04/2023 11:59 PM LEAD PRESSMAN) Lactate, bld 1.1 0.7 - 2.0 mmol/L [facility] Blood 06/04/2023 11:5 9 PM LEAD PRESSMAN 06/05/2023 12:13 AM LEAD PRESSMAN us Sherlyn Alicea MD LAB BLOOD ORDERABLES F inal Result Performing Organization Address City/[facility]/ZIP Co de Phone Number [facility] [place] [address] * (ABNORMAL) CBC without differential (06/04/2023 11:59 PM LEAD PRESSMAN) [facility] WBC 9.3 3.8 - 9.9 K/cumm [facility] Hgb 7.7(L) 13.0 - 17.5 g/dL [facility] Hct 24.3(L) 38.9 - 50.3 % [facility] Plt 319 150 - 400 K/cumm [facility] MPV 9.1 9.1 - 12.3 fL [facility] RBC 2.69(L) 4.30 - 5.80 M/cumm [facility] MCV 90.3 81.3 - 96.4 fL [facility] MCH 28.6 27.1 - 33.3 pg [facility] MCHC 31.7(L) 32.3 - 35.7 g/dL [facility] RDW CV 13.0 11.1 - 14.9 % [facility] RDW SD 42.9 35.7 - 48.1 fL [facility] NRBC abs 0.00 0.00 - 0.01 K/cumm [facility] Blood 06/04/2023 11:5 9 PM LEAD PRESSMAN 06/05/2023 12:25 AM LEAD PRESSMAN us Alonzo Duncan MD LAB BLOOD ORDERABLES Fin al Result [facility] [place] [address] * (ABNORMAL) Basic metabolic panel (06/04/2023 11:59 PM LEAD PRESSMAN) [facility] Sodium 139 135 - 145 mmol/L [facility] Potassium, pl 4.1 3.3 - 4.9 mmol/L [facility] Chloride 105 97 - 110 mmol/L [facility] CO2 23 22 - 32 mmol/L [facility] Anion gap 11 2 - 15 mmol/L [facility] BUN 17 6 - 25 mg/dL [facility] Creatinine 1.91(H) 0.80 - 1.30 mg/dL [facility] Glucose 112 70 - 199 mg/dL [facility] Comment: Interpretive Data Fasting glucose [...] 2022. Calcium 8.4(L) 8.5 - 10.3 mg/dL [facility] Blood 06/04/2023 11:5 9 PM LEAD PRESSMAN 06/05/2023 12:25 AM LEAD PRESSMAN Alonzo Duncan MD LAB BLOOD ORDERABLES Fin al Result [facility] [place] [address] * XR Chest 1 View - in PM (06/04/2023 8:53 PM LEAD PRESSMAN) Anatomical Region Laterality Modality Body, Chest N/A Digital Radiogra phy 06/04/2023 10:0 2 PM LEAD PRESSMAN Impressions 06/04/2023 10:02 PM LEAD PRESSMAN Comparison is made to the prior examination from 05/13/2023. ??Aortic stent graft is unchanged in position. ??There is no pneumonic consolidation, effusion, or pneumothorax. ??The heart size is stable. Electronically signed by: Gen Baker M.D. Narrative 06/04/2023 10:02 PM LEAD PRESSMAN EXAMINATION: 1 view chest radiograph Procedure Note [...] Result * Critical Care (06/04/2023 6:46 PM LEAD PRESSMAN) Narrative Mehul Brooks MD - 06/04/2023 6:46 PM LEAD PRESSMAN Benny Isaacs NP ? 06/05/2023 ??5:07 AM [...] plan with the ICU team and other medical/payroll consultant staff, making frequent assessments and decisions [...] Result * (ABNORMAL) eGFR (06/04/2023 5:33 PM LEAD PRESSMAN) [facility] eGFR 54(L) >=60 mL/min/1. 73 m2 [facility] Comment: Interpretive Data Reference Interval Normal ?>/= [...] last reviewed 2021. Blood 06/04/2023 5:33 PM LEAD PRESSMAN 06/04/2023 5:46 PM LEAD PRESSMAN us Alonzo Duncan MD LAB BLOOD ORDERABLES Fin al Result Performing Organization Address City/[facility]/ZIP Co de Phone Number [facility] [place] [address] * Lactate, whole blood (06/04/2023 5:33 PM LEAD PRESSMAN) Lactate, bld 1.8 0.7 - 2.0 mmol/L [facility] Blood 06/04/2023 5:33 PM LEAD PRESSMAN 06/04/2023 5:40 PM LEAD PRESSMAN us Sherlyn Alicea MD LAB BLOOD ORDERABLES F inal Result Performing Organization Address City/[facility] Co de Phone Number [facility] [place] [address] * (ABNORMAL) CBC without differential (06/04/2023 5:33 PM LEAD PRESSMAN) [facility] WBC 7.9 3.8 - 9.9 K/cumm [facility] Hgb 7.8(L) 13.0 - 17.5 g/dL [facility] Hct 24.6(L) 38.9 - 50.3 % [facility] Plt 308 150 - 400 K/cumm [facility] MPV 8.7(L) 9.1 - 12.3 fL [facility] RBC 2.71(L) 4.30 - 5.80 M/cumm [facility] MCV 90.8 81.3 - 96.4 fL [facility] MCH 28.8 27.1 - 33.3 pg [facility] MCHC 31.7(L) 32.3 - 35.7 g/dL [facility] RDW CV 12.9 11.1 - 14.9 % [facility] RDW SD 42.8 35.7 - 48.1 fL [facility] NRBC abs 0.00 0.00 - 0.01 K/cumm [facility] Blood 06/04/2023 5:33 PM LEAD PRESSMAN 06/04/2023 5:47 PM LEAD PRESSMAN Alonzo Duncan MD LAB BLOOD ORDERABLES Fin al Result [facility] [place] [address] * (ABNORMAL) Basic metabolic panel (06/04/2023 5:33 PM LEAD PRESSMAN) [facility] Sodium 139 135 - 145 mmol/L [facility] Potassium, pl 4.4 3.3 - 4.9 mmol/L [facility] Chloride 106 97 - 110 mmol/L [facility] CO2 22 22 - 32 mmol/L [facility] Anion gap 11 2 - 15 mmol/L [facility] BUN 17 6 - 25 mg/dL [facility] Creatinine 1.71(H) 0.80 - 1.30 mg/dL [facility] Glucose 105 70 - 199 mg/dL [facility] Comment: Interpretive Data Fasting glucose [...] Calcium 8.7 8.5 - 10.3 mg/dL [facility] Blood 06/04/2023 5:33 PM LEAD PRESSMAN 06/04/2023 5:46 PM LEAD PRESSMAN us Alonzo Duncan MD LAB BLOOD ORDERABLES Fin al Result [facility] [place] [address] * US Doppler Renal Artery LTD (06/04/2023 12:27 PM LEAD PRESSMAN) Anatomical Region Laterality Modality Vascular N/A Ultrasound 06/04/2023 12:3 8 PM LEAD PRESSMAN Impressions 06/04/2023 12:52 PM LEAD PRESSMAN Limited examination due to portable technique, within the limitation, pulsatile arterial waveforms in the bilateral renal arteries without evidence of renal artery occlusion. Dictated by: Quincy Painting M.D. The radiology attending physician has personally reviewed this study, and had reviewed and/or edited this written report and agrees with it. Electronically signed by: Otoniel Mccain M.D. Narrative 06/04/2023 12:52 PM LEAD PRESSMAN EXAMINATION: LIMITED RENAL DOPPLER HISTORY: ??Aortic dissection [...] by: Otoniel Mccain M.D. Alonzo Duncan MD [facility] PROCEDURES Final Result * eGFR (06/04/2023 11:37 AM LEAD PRESSMAN) [facility] eGFR 61 >=60 mL/min/1. 73 m2 [facility] Comment: Interpretive Data Reference Interval [...] reviewed 2021. Blood 06/04/2023 11:3 7 AM LEAD PRESSMAN 06/04/2023 11:56 AM LEAD PRESSMAN Alonzo Duncan MD LAB BLOOD ORDERABLES Fin al Result Performing Organization Address [facility] de Phone Number [facility] [place] [address] * (ABNORMAL) Protime-INR (06/04/2023 11:37 AM LEAD PRESSMAN) PT 15.6(H) 10.3 - 13.7 sec [facility] INR 1.37(H) 0.90 - 1.20 [facility] Comment: Interpretive data Oral anticoagulant therapeutic ranges: Venous thromboembolism prophylaxis or treatment: 2.0-3.0 CARDIOLOGY Standard range: 2.0-3.0 High-intensity range: 2.5-3.5 Refer to indication-specific guidelines for appropriate target ranges for prosthetic heart valve replacement. Current interpretive data was last revised on 2019. Blood 06/04/2023 11:3 7 AM LEAD PRESSMAN 06/04/2023 11:45 AM LEAD PRESSMAN Sheila Winters NP LAB BLOOD ORDERABLES F inal Result Performing Organization Address [facility] de Phone Number [facility] [place] [address] * Lactate, whole blood (06/04/2023 11:37 AM LEAD PRESSMAN) Lactate, bld 1.1 0.7 - 2.0 mmol/L [facility] Blood 06/04/2023 11:3 7 AM LEAD PRESSMAN 06/04/2023 11:42 AM LEAD PRESSMAN Sherlyn Alicea MD LAB BLOOD ORDERABLES F inal Result Performing Organization Address [facility] Co de Phone Number [facility] [place] [address] * (ABNORMAL) CBC without differential (06/04/2023 11:37 AM LEAD PRESSMAN) [facility] WBC 7.6 3.8 - 9.9 K/cumm [facility] Hgb 8.2(L) 13.0 - 17.5 g/dL [facility] Hct 25.8(L) 38.9 - 50.3 % [facility] Plt 336 150 - 400 K/cumm [facility] MPV 8.7(L) 9.1 - 12.3 fL [facility] RBC 2.86(L) 4.30 - 5.80 M/cumm [facility] MCV 90.2 81.3 - 96.4 fL [facility] MCH 28.7 27.1 - 33.3 pg [facility] MCHC 31.8(L) 32.3 - 35.7 g/dL [facility] RDW CV 13.0 11.1 - 14.9 % [facility] RDW SD 43.1 35.7 - 48.1 fL [facility] NRBC abs 0.00 0.00 - 0.01 K/cumm [facility] Blood 06/04/2023 11:3 7 AM LEAD PRESSMAN 06/04/2023 11:56 AM LEAD PRESSMAN Alonzo Duncan MD LAB BLOOD ORDERABLES Fin al Result Performing Organization Address [facility]/ZIP Co de Phone Number [facility] [place] [address] * (ABNORMAL) Basic metabolic panel (06/04/2023 11:37 AM LEAD PRESSMAN) Sodium 140 135 - 145 mmol/L [facility] Potassium, pl 4.5 3.3 - 4.9 mmol/L [facility] Chloride 105 97 - 110 mmol/L [facility] CO2 23 22 - 32 mmol/L [facility] Anion gap 12 2 - 15 mmol/L [facility] BUN 17 6 - 25 mg/dL [facility] Creatinine 1.56(H) 0.80 - 1.30 mg/dL [facility] Glucose 111 70 - 199 mg/dL [facility] Comment: Interpretive Data Fasting glucose [...] 2022. Calcium 8.8 8.5 - 10.3 mg/dL [facility] Blood 06/04/2023 11:3 7 AM LEAD PRESSMAN 06/04/2023 11:56 AM LEAD PRESSMAN Alonzo Duncan MD LAB BLOOD ORDERABLES [facility] al Result [facility] [place] [address] * (ABNORMAL) Basic metabolic panel (06/04/2023 6:09 AM LEAD PRESSMAN) Sodium 140 135 - 145 mmol/L [facility] Potassium, pl 4.5 3.3 - 4.9 mmol/L [facility] Chloride 109 97 - 110 mmol/L [facility] CO2 22 22 - 32 mmol/L [facility] Anion gap 9 2 - 15 mmol/L [facility] BUN 16 6 - 25 mg/dL [facility] Creatinine 1.70(H) 0.80 - 1.30 mg/dL [facility] Glucose 126 70 - 199 mg/dL [facility] Comment: Interpretive Data Fasting glucose [...] 2022. Calcium 8.5 8.5 - 10.3 mg/dL [facility] Blood 06/04/2023 6:09 AM LEAD PRESSMAN 06/04/2023 6:43 AM LEAD PRESSMAN Alonzo Duncan MD LAB BLOOD ORDERABLES Fin al Result [facility] [place] [address] * (ABNORMAL) eGFR (06/04/2023 6:09 AM LEAD PRESSMAN) [facility] eGFR 55(L) >=60 mL/min/1. 73 m2 [facility] Comment: Interpretive Data Reference Interval [...] last reviewed 2021. Blood 06/04/2023 6:09 AM LEAD PRESSMAN 06/04/2023 6:45 AM LEAD PRESSMAN Alonzo Duncan MD LAB BLOOD ORDERABLES Fin al Result Performing Organization Address City/[facility]/ZIP Co de Phone Number [facility] [place] [address] * Lactate, whole blood (06/04/2023 6:09 AM LEAD PRESSMAN) Pathologist [facility] Lactate, bld 1.7 0.7 - 2.0 mmol/L [facility] Blood 06/04/2023 6:09 AM LEAD PRESSMAN 06/04/2023 6:17 AM LEAD PRESSMAN us Sherlyn Alicea MD LAB BLOOD ORDERABLES F inal Result Performing Organization Address [facility]/ZIP Co de Phone Number [facility] [place] [address] * (ABNORMAL) CBC without differential (06/04/2023 6:09 AM LEAD PRESSMAN) WBC 8.8 3.8 - 9.9 K/cumm [facility] Hgb 8.2(L) 13.0 - 17.5 g/dL [facility] Hct 25.8(L) 38.9 - 50.3 % [facility] Plt 347 150 - 400 K/cumm [facility] MPV 8.9(L) 9.1 - 12.3 fL [facility] RBC 2.89(L) 4.30 - 5.80 M/cumm [facility] MCV 89.3 81.3 - 96.4 fL [facility] MCH 28.4 27.1 - 33.3 pg [facility] MCHC 31.8(L) 32.3 - 35.7 g/dL [facility] RDW CV 13.0 11.1 - 14.9 % [facility] RDW SD 42.8 35.7 - 48.1 fL [facility] NRBC abs 0.00 0.00 - 0.01 K/cumm [facility] Blood 06/04/2023 6:09 AM LEAD PRESSMAN 06/04/2023 6:37 AM LEAD PRESSMAN Result [facility] Alonzo Duncan MD LAB BLOOD ORDERABLES Fin al Result Performing Organization Address [facility] Co de Phone Number [facility] [place] [address] * (ABNORMAL) Phosphorus (06/04/2023 6:09 AM LEAD PRESSMAN) Phosphorus, pl 4.6(H) 2.3 - 4.5 mg/dL [facility] Blood 06/04/2023 6:09 AM LEAD PRESSMAN 06/04/2023 6:43 AM LEAD PRESSMAN Alonzo Duncan MD LAB BLOOD ORDERABLES Fin al Result Performing Organization Address City/State/[facility] Co de Phone Number [facility] [place] [address] * Magnesium (06/04/2023 6:09 AM LEAD PRESSMAN) Magnesium 2.5 1.4 - 2.5 mg/dL [facility] Blood 06/04/2023 6:09 AM LEAD PRESSMAN 06/04/2023 6:43 AM LEAD PRESSMAN Alonzo Duncan MD LAB BLOOD ORDERABLES Fin al Result Performing Organization Address [facility] de Phone Number [facility] [place] [address] * (ABNORMAL) Blood gas, arterial (06/04/2023 2:33 AM LEAD PRESSMAN) pH, Art 7.35 7.35 - 7.45 [facility] PCO2, Arterial 44 35 - 45 mmHg [facility] PO2, Arterial 73(L) 83 - 108 mmHg [facility] HCO3 Art (Calculated) 25 20 - 30 mmol/L [facility] BE, art -1 mmol/L [facility] Comment: Interpretive Data No Reference Range Established Current Interpretive Data was last revised on 2017 O2 Sat Art (Measured) 94 90 - 95 % [facility] Blood 06/04/2023 2:33 AM LEAD PRESSMAN 06/04/2023 2:39 AM LEAD PRESSMAN Alonzo Duncan MD LAB BLOOD ORDERABLES Fin al Result Performing Organization Address [facility] de Phone Number [facility] [place] [address] * aPTT (06/04/2023 1:54 AM LEAD PRESSMAN) aPTT 35 28 - 38 sec [facility] Comment: Interpretive Data Heparin therapeutic range: 66.0 - 100.0 seconds. Range based on correlation with therapeutic heparin activity range of 0.3 - 0.7 Units/mL. Current interpretive data was last revised on 2023. Blood 06/04/2023 1:54 AM LEAD PRESSMAN 06/04/2023 2:09 AM LEAD PRESSMAN Alonzo Duncan MD LAB BLOOD ORDERABLES Fin al Result Performing Organization Address [facility] Co de Phone Number [facility] [place] [address] * (ABNORMAL) Protime-INR (06/04/2023 1:54 AM LEAD PRESSMAN) PT 15.8(H) 10.3 - 13.7 sec [facility] INR 1.39(H) 0.90 - 1.20 [facility] Comment: Interpretive data Oral anticoagulant therapeutic ranges: Venous thromboembolism prophylaxis or treatment: 2.0-3.0 CARDIOLOGY Standard range: 2.0-3.0 High-intensity range: 2.5-3.5 Refer to indication-specific guidelines for appropriate target ranges for prosthetic heart valve replacement. Current interpretive data was last revised on 2019. Blood 06/04/2023 1:54 AM LEAD PRESSMAN 06/04/2023 2:09 AM LEAD PRESSMAN Alonzo Duncan MD LAB BLOOD ORDERABLES Fin al Result Performing Organization Address [facility]/ZIP Co de Phone Number [facility] [place] [address] * Type and screen (06/04/2023 1:54 AM LEAD PRESSMAN) Ellen, indirect Negative ABO Rh A Positive [facility] Blood 06/04/2023 1:54 AM LEAD PRESSMAN 06/04/2023 2:06 AM LEAD PRESSMAN Narrative [facility] - 06/04/2023 3:04 AM LEAD PRESSMAN Has the patient had Daratumumab or Isatuximab in the past 6 months?->Unknown Alonzo Duncan MD LAB BLOOD BANK TEST ORDE RABLES Final Result [facility] [place] [address] * ND ARTL CATHJ/CANNULJ MNTR/TRANSFUSION SPX PRQ (06/04/2023 1:26 AM LEAD PRESSMAN) Narrative Mehul Brooks MD - 06/04/2023 1:26 AM LEAD PRESSMAN Sherlyn Alicea MD ? 06/04/2023 ??1:31 AM Arterial Line Insertion Date/Time: 06/04/2023 1:26 AM Performed by: Michael Hamm MD Authorized by: Mehul Brooks MD ?? Bryant Protocol: RN Notified of Procedure: yes ?? Informed consent: ??Risks, benefits, alternatives discussed and patient/account retention representative/guardian agrees and accepts Patient's stated name/ [...] * Lactate, whole blood (06/04/2023 1:00 AM LEAD PRESSMAN) [facility] Lactate, bld 1.5 0.7 - 2.0 mmol/L [facility] Blood 06/04/2023 1:00 AM LEAD PRESSMAN 06/04/2023 1:04 AM LEAD PRESSMAN Sherlyn Alicea MD LAB BLOOD ORDERABLES F inal Result [facility] [place] [address] * eGFR (06/04/2023 12:42 AM LEAD PRESSMAN) [facility] eGFR 89 >=60 mL/min/1. 73 m2 [facility] Comment: Interpretive Data Reference Interval [...] reviewed 2021. Blood 06/04/2023 12:4 2 AM LEAD PRESSMAN 06/04/2023 12:49 AM LEAD PRESSMAN Alonzo Duncan MD LAB BLOOD ORDERABLES [facility] al Result [facility] [place] [address] * (ABNORMAL) CBC without differential (06/04/2023 12:42 AM LEAD PRESSMAN) WBC 8.9 3.8 - 9.9 K/cumm [facility] Hgb 9.2(L) 13.0 - 17.5 g/dL [facility] Hct 28.6(L) 38.9 - 50.3 % [facility] Plt 369 150 - 400 K/cumm [facility] MPV 9.0(L) 9.1 - 12.3 fL [facility] RBC 3.22(L) 4.30 - 5.80 M/cumm [facility] MCV 88.8 81.3 - 96.4 fL [facility] MCH 28.6 27.1 - 33.3 pg [facility] MCHC 32.2(L) 32.3 - 35.7 g/dL [facility] RDW CV 12.9 11.1 - 14.9 % [facility] RDW SD 42.2 35.7 - 48.1 fL [facility] NRBC abs 0.00 0.00 - 0.01 K/cumm [facility] Blood 06/04/2023 12:4 2 AM LEAD PRESSMAN 06/04/2023 1:09 AM LEAD PRESSMAN Alonzo Duncan MD LAB BLOOD ORDERABLES Fin al Result Performing Organization Address [facility] Co de Phone Number [facility] [place] [address] * Calcium, ionized (06/04/2023 12:42 AM LEAD PRESSMAN) Calcium, Ionized 4.63 4.50 - 5.10 mg/dL [facility] Blood 06/04/2023 12:4 2 AM LEAD PRESSMAN 06/04/2023 12:49 AM LEAD PRESSMAN Alonzo Duncan MD LAB BLOOD ORDERABLES Fin al Result [facility] [place] [address] * Magnesium (06/04/2023 12:42 AM LEAD PRESSMAN) Magnesium 1.8 1.4 - 2.5 mg/dL [facility] [facility] Blood 06/04/2023 12:4 2 AM LEAD PRESSMAN 06/04/2023 12:49 AM LEAD PRESSMAN Alonzo Duncan MD LAB BLOOD ORDERABLES Fin al Result Performing Organization Address City/[facility]/ZIP Co de Phone Number [facility] [place] [address] * Phosphorus (06/04/2023 12:42 AM LEAD PRESSMAN) Phosphorus, pl 4.0 2.3 - 4.5 mg/dL [facility] Blood 06/04/2023 12:4 2 AM LEAD PRESSMAN 06/04/2023 12:49 AM LEAD PRESSMAN Alonzo Duncan MD LAB BLOOD ORDERABLES Fin al Result Performing Organization Address [facility] de Phone Number [facility] [place] [address] * Basic metabolic panel (06/04/2023 12:42 AM LEAD PRESSMAN) Pathologist [facility] Sodium 141 135 - 145 mmol/L [facility] Potassium, pl 3.6 3.3 - 4.9 mmol/L [facility] Chloride 106 97 - 110 mmol/L [facility] CO2 24 22 - 32 mmol/L [facility] Anion gap 11 2 - 15 mmol/L [facility] BUN 13 6 - 25 mg/dL [facility] Creatinine 1.13 0.80 - 1.30 mg/dL [facility] Glucose 103 70 - 199 mg/dL [facility] Comment: Interpretive Data Fasting glucose [...] 2022. Calcium 8.9 8.5 - 10.3 mg/dL [facility] Blood 06/04/2023 12:4 2 AM LEAD PRESSMAN 06/04/2023 12:49 AM LEAD PRESSMAN us Alonzo Duncan MD LAB BLOOD ORDERABLES Fin al Result [facility] [place] [address] * ND CRITICAL CARE ILL/INJURED PATIENT INIT 30-74 MIN (06/03/2023 10:14 PM LEAD PRESSMAN) Narrative Tressa Sorensen MD - 06/03/2023 10:14 PM LEAD PRESSMAN Tressa Sorensen MD ? 06/03/2023 10:15 PM [...] (ABNORMAL) Urinalysis, microscopic only (06/03/2023 10:07 PM LEAD PRESSMAN) Pathologist [facility] WBC, ur 0-5 0 - 5 /HPF [facility] RBC, ur 0-2 0 - 2 /HPF [facility] Epithelial cells, squamous, ur 1-5 0 - 5 /HPF [facility] Bacteria, ur 1+(A) [facility] Mucous, ur Present(A) [facility] Urine 06/03/2023 10:0 7 PM LEAD PRESSMAN 06/03/2023 10:14 PM LEAD PRESSMAN Tressa Sorensen MD LAB URINE ORDERABLES Final Re sult Performing Organization Address [facility]/ZIP Co de Phone Number [facility] [place] [address] * Lactate (06/03/2023 10:07 PM LEAD PRESSMAN) [facility] Lactate 1.0 0.7 - 2.0 mmol/L [facility] Blood 06/03/2023 10:0 7 PM LEAD PRESSMAN 06/03/2023 10:22 PM LEAD PRESSMAN Tressa Sorensen MD LAB BLOOD ORDERABLES Final Re sult Performing Organization Address [facility] Co de Phone Number [facility] [place] [address] * Troponin I high-sensitivity 4-hour (06/03/2023 10:07 PM LEAD PRESSMAN) Pathologist [facility] Trop I hs 10 <=35 ng/L [facility] Comment: Interpretive Data For further hscTnI resources including the diagnostic algorithm and an aid in interpretation, copy and paste this link: https://bjhlab.testcatalog.org/show/[email or web address] Current Interpretive Data last revised 2019. Trop I hs delta 2 ng/L [facility] Trop I hs interp Insignificant [facility] Blood 06/03/2023 10:0 7 PM LEAD PRESSMAN 06/03/2023 10:22 PM LEAD PRESSMAN us Deandre Niño MD LAB BLOOD ORDERABLES Final Resul t Performing Organization Address City/[facility]/ZIP Co de Phone Number [facility] [place] [address] * (ABNORMAL) Urinalysis reflex to microscopic (06/03/2023 10:07 PM LEAD PRESSMAN) Color, ur Straw Yellow [facility] Clarity, ur Clear Clear [facility] Specific gravity, ur >1.042(H) 1.003 - 1.030 [facility] pH, urine 6.5 [facility] Comment: Interpretive Data ? Urine pH is affected by diet, medications, systemic acid-base disturbances, and renal tubular function. ??pH may affect urinary stone formation. ??For example, urine pH below 6.0 may help reduce the tendency for calcium phosphate stones and pH greater than 6.0 may reduce the tendency for uric acid stone formation. Source: [facility] [employer] Current Interpretive Data was last revised on 2017 Protein, ur ql 1+(A) Negative [facility] Glucose, ur ql Trace(A) Negative [facility] [place] Ketones, ur Negative Negative [facility] [place] Bilirubin, ur Negative Negative [facility] Blood, ur Trace(A) Negative [facility] [place] Urobilinogen, ur <2.0 <2.0 mg/dL [facility] Nitrite, ur Negative Negative [facility] Leukocyte esterase, ur Negative Negative [facility] [place] UA reflex comment Reflex to microscopic UA will be performed. [facility] Urine 06/03/2023 10:0 7 PM LEAD PRESSMAN 06/03/2023 10:14 PM LEAD PRESSMAN us Tressa Sorensen MD LAB URINE ORDERABLES Final Re sult Performing Organization Address [facility]/ZIP Co de Phone Number [facility] [place] [address] * Troponin I high-sensitivity 2-hour (06/03/2023 8:21 PM LEAD PRESSMAN) Trop I hs 11 <=35 ng/L [facility] [place] Comment: Interpretive Data For further hscTnI resources including the diagnostic algorithm and an aid in interpretation, copy and paste this link: https://bjhlab.testcatalog.org/show/[email or web address] Current Interpretive Data last revised 2019. Trop I hs delta 3 ng/L [facility] Trop I hs interp Insignificant [facility] Blood 06/03/2023 8:21 PM LEAD PRESSMAN 06/03/2023 8:37 PM LEAD PRESSMAN us Deandre Niño MD LAB BLOOD ORDERABLES Final Resul t [facility] [place] [address] * CTA Chest Abdomen Pelvis (06/03/2023 7:19 PM LEAD PRESSMAN) Anatomical Region Laterality Modality Body N/A Computed Tomogra phy 06/03/2023 7:59 PM LEAD PRESSMAN Impressions 06/03/2023 9:13 PM LEAD PRESSMAN 1. ??Changes of type B aortic dissection [...] Telly Baker M.D. Narrative 06/03/2023 9:13 PM LEAD PRESSMAN EXAMINATION: CT ANGIOGRAPHY OF THE CHEST, ABDOMEN [...] the 3-D workstation and sent to the [employer] archival system. ?? COMPARISON: 05/16/2023 CT FINDINGS: [...] Retroperitoneal (AAA or Renal) (06/03/2023 6:53 PM LEAD PRESSMAN) Anatomical Region Laterality Modality Other 06/03/2023 6:39 PM LEAD PRESSMAN Narrative 06/06/2023 9:46 AM LEAD PRESSMAN Performed by: Nakita Holguin Aorta v3 : [...] Result * POCT creatinine (06/03/2023 6:36 PM LEAD PRESSMAN) Creatinine POC 1.1 0.7 - 1.3 mg/dL [facility] Blood 06/03/2023 6:36 PM LEAD PRESSMAN 06/03/2023 6:36 PM LEAD PRESSMAN Tressa Sorensen MD LAB POCT ORDERABLES - DEVICE Final Result [facility] Department [place] [address] * eGFR (06/03/2023 6:30 PM LEAD PRESSMAN) eGFR 85 >=60 mL/min/1. 73 m2 [facility] Comment: Interpretive Data Reference Interval [...] last reviewed 2021. Blood 06/03/2023 6:30 PM LEAD PRESSMAN 06/03/2023 6:46 PM LEAD PRESSMAN us Deandre Niño MD LAB BLOOD ORDERABLES Final Resul t [facility] [place] [address] * Differential, auto (06/03/2023 6:30 PM LEAD PRESSMAN) Neutrophil abs 6.3 1.5 - 6.5 K/cumm [facility] Imm gran abs 0.1 0.0 - 0.1 K/cumm [facility] Lymphocyte abs 1.8 0.8 - 3.3 K/cumm [facility] Monocyte abs 0.6 0.2 - 0.8 K/cumm [facility] Eosinophil abs 0.0 0.0 - 0.5 K/cumm [facility] Basophil abs 0.1 0.0 - 0.1 K/cumm [facility] Neutrophil pct 71.2 % [facility] Comment: Interpretive Data Percent cell count reference ranges are not reported, since discordance with absolute values may lead to misinterpretation of CBC data. Current Interpretive Data was last revised on 2017. Imm gran pct 0.7 % [facility] Comment: Interpretive Data Percent cell count reference ranges are not reported, since discordance with absolute values may lead to misinterpretation of CBC data. Current Interpretive Data was last revised on 2017. Lymphocyte pct 19.8 % [facility] Comment: Interpretive Data Percent cell count reference ranges are not reported, since discordance with absolute values may lead to misinterpretation of CBC data. Current Interpretive Data was last revised on 2017. Monocyte pct 7.2 % [facility] Comment: Interpretive Data Percent cell count reference ranges are not reported, since discordance with absolute values may lead to misinterpretation of CBC data. Current Interpretive Data was last revised on 2017. Eosinophil pct 0.5 % [facility] Comment: Interpretive Data Percent cell count reference ranges are not reported, since discordance with absolute values may lead to misinterpretation of CBC data. Current Interpretive Data was last revised on 2017. Basophil pct 0.6 % [facility] Comment: Interpretive Data Percent cell count reference ranges are not reported, since discordance with absolute values may lead to misinterpretation of CBC data. Current Interpretive Data was last revised on 2017. Blood 06/03/2023 6:30 PM LEAD PRESSMAN 06/03/2023 6:36 PM LEAD PRESSMAN us Deandre Niño MD LAB BLOOD ORDERABLES Final Resul t [facility] Department [place] [address] * Troponin I high-sensitivity series (baseline, 2hr, 4hr, 6hr) (06/03/2023 6:30 PM LEAD PRESSMAN) Trop I hs 8 <=35 ng/L [facility] Comment: Interpretive Data For further [facility] resources including the diagnostic algorithm and an aid in interpretation, copy and paste this link: https://bjhlab.testcatalog.org/show/[email or web address] Current Interpretive Data last revised 2019. Blood 06/03/2023 6:30 PM LEAD PRESSMAN 06/03/2023 6:36 PM LEAD PRESSMAN Tressa Sorensen MD LAB BLOOD ORDERABLES Final Re sult Performing Organization Address City/[facility]/ZIP Co de Phone Number [facility] [place] [address] * Lipase (06/03/2023 6:30 PM LEAD PRESSMAN) [facility] Lipase 40 10 - 99 Units/L [facility] Blood (Blood, Venous) 06/03/2023 6:30 PM LEAD PRESSMAN 06/03/2023 6:36 PM LEAD PRESSMAN Tressa Sorensen MD LAB BLOOD ORDERABLES Final Re sult Performing Organization Address [facility] de Phone Number [facility] [place] [address] * (ABNORMAL) Comprehensive metabolic panel (06/03/2023 6:30 PM LEAD PRESSMAN) Pathologist [facility] Sodium 142 135 - 145 mmol/L [facility] Potassium, pl 3.6 3.3 - 4.9 mmol/L [facility] Chloride 105 97 - 110 mmol/L [facility] CO2 25 22 - 32 mmol/L [facility] Anion gap 12 2 - 15 mmol/L [facility] BUN 13 6 - 25 mg/dL [facility] Creatinine 1.17 0.80 - 1.30 mg/dL [facility] Glucose 130 70 - 199 mg/dL [facility] Comment: Interpretive Data Fasting glucose [...] 2022. Calcium 9.9 8.5 - 10.3 mg/dL [facility] Bilirubin, total 0.3 0.1 - 1.2 mg/dL [facility] Protein, pl 9.3(H) 6.5 - 8.5 g/dL [facility] Albumin 4.1 3.5 - 5.0 g/dL [facility] Alk phos 116 40 - 130 Units/L [facility] ALT 19 7 - 55 Units/L [facility] AST 10 10 - 50 Units/L [facility] Blood 06/03/2023 6:30 PM LEAD PRESSMAN 06/03/2023 6:36 PM LEAD PRESSMAN us Tressa Sorensen MD LAB BLOOD ORDERABLES Final Re sult [facility] [place] [address] * (ABNORMAL) CBC with auto differential (06/03/2023 6:30 PM LEAD PRESSMAN) WBC 8.9 3.8 - 9.9 K/cumm [facility] Hgb 10.8(L) 13.0 - 17.5 g/dL [facility] Hct 33.2(L) 38.9 - 50.3 % [facility] Plt 399 150 - 400 K/cumm [facility] MPV 9.1 9.1 - 12.3 fL [facility] RBC 3.73(L) 4.30 - 5.80 M/cumm [facility] MCV 89.0 81.3 - 96.4 fL [facility] MCH 29.0 27.1 - 33.3 pg [facility] MCHC 32.5 32.3 - 35.7 g/dL [facility] RDW CV 12.9 11.1 - 14.9 % [facility] RDW SD 41.5 35.7 - 48.1 fL [facility] NRBC abs 0.00 0.00 - 0.01 K/cumm [facility] Blood (Blood, Venous) 06/03/2023 6:30 PM LEAD PRESSMAN 06/03/2023 6:36 PM LEAD PRESSMAN Tressa Sorensen MD LAB BLOOD ORDERABLES Final Re sult Performing Organization Address [facility]/State/ZIP Co de Phone Number [facility] [place] [address] * ECG 12-LEAD (06/03/2023 6:18 PM LEAD PRESSMAN) Narrative [facility] - 06/03/2023 6:18 PM LEAD PRESSMAN Michael Cortes MD ? 06/03/2023 ??6:19 PM [...] Address City/[facility]/ZIP Co de Phone Number [facility] documented in this encounter Visit Diagnoses [...] For 31 doses Given 06/11/2023 11:12 AM LEAD PRESSMAN 1,000 mg Given 06/11/2023 6:10 AM LEAD PRESSMAN 1,000 mg Given 06/11/2023 12:16 AM LEAD PRESSMAN 1,000 mg amLODIPine (NORVASC) tablet 5 mg 5 mg, oral, Daily, First dose on Tue06/09/23 at 1215 Given 06/11/2023 8:22 AM LEAD PRESSMAN 5 mg Given 06/10/2023 7:15 AM LEAD PRESSMAN 5 mg Given 06/09/2023 1:24 PM LEAD PRESSMAN 5 mg aspirin chewable tablet 81 mg 81 mg, oral, Daily, First dose on Tue06/07/23 at 1115 Given 06/11/2023 8:22 AM LEAD PRESSMAN 81 mg Given 06/10/2023 7:15 AM LEAD PRESSMAN 81 mg Given 06/09/2023 8:52 AM LEAD PRESSMAN 81 mg bisacodyL (DULCOLAX) suppository 10 mg 10 mg, rectal, Daily, First dose on Tue06/08/23 at 1100, Indications: constipationIndications:constipation Carrier Fluids for Secondary Infusion - 0.9% Sodium Chloride 30 mL, intravenous, As needed, For priming tubing and/or flushing, Starting on 06/04/23 at 0008 Given 06/06/2023 1:40 AM LEAD PRESSMAN 30 mL Carrier Fluids for Secondary Infusion [...] Tue06/10/23 at 1800 Given 06/11/2023 8:22 AM LEAD PRESSMAN 25 mg Given 06/10/2023 5:29 PM LEAD PRESSMAN 25 mg docusate sodium (COLACE) capsule 100 mg 100 mg, oral, 2 times daily, First dose on 06/04/23 at 0045, Hold for diarrhea., Indications: constipationIndications:constipation Given 06/11/2023 8:23 AM LEAD PRESSMAN 100 mg Given 06/08/2023 8:21 AM LEAD PRESSMAN 100 mg Given 06/07/2023 8:17 PM LEAD PRESSMAN 100 mg enoxaparin (LOVENOX) syringe 40 mg 40 mg, subcutaneous, Daily (for enoxaparin), First dose on Tue06/08/23 at 2100, Indications: Deep Vein Thrombosis PreventionIndications:Deep Vein Thrombosis Prevention Given 06/10/2023 8:44 PM LEAD PRESSMAN 40 mg Left Lower Abdomen Given 06/09/2023 8:23 PM LEAD PRESSMAN 40 mg Le ft Upper Arm Given 06/08/2023 8:39 PM LEAD PRESSMAN 40 mg Ri ght Upper Arm gabapentin (NEURONTIN) capsule 300 mg 300 mg, oral, 3 times daily, First dose on 06/04/23 at 0900 Given 06/11/2023 8:23 AM LEAD PRESSMAN 300 mg Given 06/10/2023 8:44 PM LEAD PRESSMAN 300 mg Given 06/10/2023 5:29 PM LEAD PRESSMAN 300 mg heparin in 0.9% sodium chloride 2,000 unit/1,000 mL (2 unit/mL) infusion (premix) As needed, Starting on Tue06/05/23 at 1204, Intra-Op Given 06/05/2023 12:04 PM LEAD PRESSMAN 1,000 mL hydrALAZINE (APRESOLINE) tablet 25 mg 25 mg, oral, 3 times daily, First dose on 06/11/23 at 0830, Indications: hypertensionIndications:hypertension Given 06/11/2023 8:23 AM LEAD PRESSMAN 25 mg ioversoL (OPTIRAY 320) injection As needed, Starting on Sun /7/24 at 1230, Intra-Op Given 06/05/2023 12:30 PM LEAD PRESSMAN 25 mL methocarbamoL (ROBAXIN) tablet 750 mg 750 mg, oral, 3 times daily, First dose on Tue06/04/23 at 0100 Given 06/11/2023 8:23 AM LEAD PRESSMAN 750 mg Given 06/10/2023 8:44 PM LEAD PRESSMAN 750 mg Given 06/10/2023 5:29 PM LEAD PRESSMAN 750 mg ondansetron (ZOFRAN) injection 4 mg 4 mg, intravenous, Administer over 2 Minutes, Every 6 hours PRN, nausea, vomiting, Starting on Tue06/04/23 at 0005, Administer no sooner than 6 hours after last dose. Given 06/10/2023 6:17 PM LEAD PRESSMAN 4 mg Given 06/07/2023 9:11 AM LEAD PRESSMAN 4 mg Given 06/06/2023 5:17 PM LEAD PRESSMAN 4 mg oxyCODONE (ROXICODONE) tablet 10 mg 10 mg, oral, Every 4 hours PRN, 1st line for pain, Starting on Tue06/07/23 at 0900, Indications: PainIndications:Pain Given 06/11/2023 11:12 AM LEAD PRESSMAN 10 mg Given 06/11/2023 7:14 AM LEAD PRESSMAN 10 mg Given 06/11/2023 3:14 AM LEAD PRESSMAN 10 mg polyethylene glycol (MIRALAX) packet 17 g 17 g, oral, 2 times daily, First dose (after last modification) on Tue06/07/23 at 0900, Hold for diarrhea, Indications: constipationIndications:constipation Given 06/11/2023 8:22 AM LEAD PRESSMAN 17 g Given 06/08/2023 8:21 AM LEAD PRESSMAN 17 g Given 06/07/2023 8:17 PM LEAD PRESSMAN 17 g prochlorperazine (COMPAZINE) injection 5 mg 5 mg, intravenous, Administer over 2 Minutes, Every 6 hours PRN, nausea, vomiting, Starting on Tue06/05/23 at 2234 Given 06/07/2023 9:56 AM LEAD PRESSMAN 5 mg Given 06/05/2023 10:39 PM LEAD PRESSMAN 5 mg QUEtiapine (SEROquel) tablet 50 mg 50 mg, oral, Nightly, First dose on Tue06/07/23 at 2100 Given 06/10/2023 8:44 PM LEAD PRESSMAN 50 mg Given 06/09/2023 8:22 PM LEAD PRESSMAN 50 mg Given 06/08/2023 8:39 PM LEAD PRESSMAN 50 mg ramelteon (ROZEREM) tablet 8 mg 8 mg, oral, Nightly PRN, sleep, Starting on Tue06/08/23 at 1021, Indications: Sleep-Onset InsomniaIndications:Sleep-Onset Insomnia senna (SENOKOT) tablet 1 tablet 1 tablet, oral, 2 times daily, First dose on 06/04/23 at 0045, Hold for diarrhea., Indications: constipationIndications:constipation Given 06/11/2023 8:22 AM LEAD PRESSMAN 1 table t Given 06/08/2023 8:21 AM LEAD PRESSMAN 1 tablet Given 06/07/2023 8:17 PM LEAD PRESSMAN 1 tablet sodium chloride (OCEAN) 0.65 % nasal spray 2 spray 2 spray, each nostril, Every 2 hours PRN, congestion, Starting on 06/06/23 at 1540 sodium chloride 0.9% flush 0.5-20 mL 0.5-20 mL, intra-catheter, Every 8 hours scheduled, First dose on 06/04/23 at 0045, Flush volume based on line type and size. Given 06/10/2023 8:44 PM LEAD PRESSMAN 10 mL Given 06/10/2023 5:15 AM LEAD PRESSMAN 10 mL Given 06/09/2023 10:10 PM LEAD PRESSMAN 10 mL sodium chloride 0.9% flush 0.5-20 [...] otherwise manipulate tablet/capsule. Given 06/10/2023 5:29 PM LEAD PRESSMAN 0.8 mg Given 06/09/2023 5:40 PM LEAD PRESSMAN 0.8 mg Given 06/08/2023 5:25 PM LEAD PRESSMAN 0.8 mg documented in this encounter Discontinued Medications Medication Sig Discontinue Reason Start Date End Da te carvediloL (COREG) 12.5 mg tablet Take 1 tablet (12.5 mg total) by mouth 2 (two) times a day Stop Taking at Discharge 05/16/2023 06/11/2023 documented as of this encounter Active and Recently Administered Medications Times are shown in LEAD PRESSMAN. Scheduled Medication Order 06/09/2023 06/10/2023 06/11/2023 acetaminophen [...] Dunn RN) 0822 (Given - Provider: Rita Braden, [...] BRIA) 0405 (Not Given - Provider: Leticia Navas [...] 06/05/2023 documented in this encounter Care Teams Publication Distributor Relationship Specialty Start Date End Date Unknown, Notinfile PCP - General 04/30/23 06/05/23 Leo Manzano MD [id number] [place] [address] Surgeon Vascular Surgery 05/16/23 documented as of this encounter
--- OUTSIDE RECORDS SUMMARY | 2024-05-30 06:30 | XMS_ITS | Encounter Summary ---
Author Organization [facility] Address [address] [place] [address] Phone Care Team Providers Care Franchise Specialist Name Role Phone Unknown, Notinfile Primary Care Provider Unavail able Leo Manzano MD Unavailable [phone] Encounter Details Date Type Department Care Team (Late st Contact Info) Description 05/19/2023 Orders Only [facility] Vascular Surgery [address] [place] [address] Leo Manznao MD [address] [facility] [id number] [place] [address] 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); Aftercare following surgery of the circulatory system Social History Tobacco Use Types Packs/Day Years Used Date Smoking Tobacco: Never Smokeless Tobacco: Never Personal Safety Answer Date Recorded Getting School Help Needed Denies 05/09 Sex and Gender Information Value Date Recorded Sex Assigned at Not on file 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 Gender Identity Not on file Sexual Orientation Straight 06/12/2023 11 :43 PM PHOTO MANAGER documented as of this encounter Plan of Treatment Not on file documented as of this encounter Visit Diagnoses Diagnosis 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
--- OUTSIDE RECORDS SUMMARY | 2024-05-30 06:32 | XMS_ITS | Encounter Summary ---
Author Organization [facility] Healthcare Address [address] [place] [address] Care Team Providers Care Knit Goods Mender Name Role Phone Unknown, Notinfile Primary Care Provider Unavail able Faustino Herrera MD Unavailable [phone] Reason for Referral * Consultation (Routine) - Closed Specialty Diagnoses / Procedures Referred By Fernando alan Referred To Contact Urology Diagnoses Urinary retention Meron Parekh NP Phone: tel: fax: [facility] (All Locations) Referral ID Status Reason Start Date Expiration Date V isits Requested Visits Authorized [id number] Closed Specialty Services Required 05/16/2023 06/14/2024 1 1 Question Answer Please select the performing region: [facility] (All Locations) [167] # of visits: 1 Comments Urinary retention when hospitalized, improved with flomax starting AVING PLATE MAKER Reason for Visit * Reason Comments Chest Pain * Auth/Cert (Routine) Specialty Diagnoses / Procedures Referred By Contnazia t Referred To Contact Diagnoses Dissection of aorta, unspecified portion of aorta (HCC) Hypertension, unspecified type Class 1 obesity with body mass index (BMI) of 30.0 to 30.9 in adult, unspecified obesity type, unspecified whether serious comorbidity present AORTIC DISSECTION TYPE B Procedures na Referral ID Status Reason Start Date Expiration Date Visits Re quested Visits Authorized [id number] 1 1 Encounter Details Date Type Department Care Team (Latest Contact Info) Description 05/01/2023 4:58 AM ENGRAVING PLATE MAKER - 05/16/2023 4:45 PM ENGRAVING PLATE MAKER Hospital Encounter [facility] [address] [place] [address] Nagi Landa MD [address] [place] [address] Kameron Wadsworth MD [address] [place] [address] Marvin Granados MD [address] [facility] [id number] [place] [address] Alonzo Duncan MD [address] [facility] [id number] [place] [address] Faustino Herrera MD [address] [facility] [id number] [place] [address] Hypertension, unspecified type (Primary Dx); Dissection of [...] on file Legal Sex Male 3:42 AM ENGRAVING PLATE MAKER Gender Identity Not on file Sexual Orientation Straight 06/12/2023 11 :43 PM ENGRAVING PLATE MAKER documented as of this encounter Last Filed Vital Signs Vital Sign Reading Time Taken Comments Blood Pressure 149/89 05/16/2023 11:22 AM ENGRAVING PLATE MAKER Pulse 84 05/16/2023 11:22 AM ENGRAVING PLATE MAKER Temperature 36.9 ??C (98.4 ??F) 05/16/2023 1 1:22 AM ENGRAVING PLATE MAKER Respiratory Rate 20 05/16/2023 11:2 2 AM ENGRAVING PLATE MAKER Oxygen Saturation 98% 05/16/2023 11: 22 AM ENGRAVING PLATE MAKER Inhaled Oxygen Concentration - - Weight 99.2 kg (218 lb 11.2 oz) 05/16/2023 3:47 AM ENGRAVING PLATE MAKER Height 175.3 cm (5' 9 ) 05/01/2023 10:2 9 AM ENGRAVING PLATE MAKER Body Mass Index 32.3 05/06/2023 2:31 AM ENGRAVING PLATE MAKER documented in this encounter Discharge Summaries * Meron Parekh NP - 05/16/2023 10:56 AM CST Inpatient Discharge Summary BRIEF OVERVIEW Admitting Provider: Faustino Herrera MD Discharge Provider: Faustino Herrera MD Primary Care Physician at Discharge: Unknown, Notinfile None Admission Date: 05/01/2023 Discharge Date: 05/16/2023 Admission Location: [facility] Problems/Diagnoses: Principal Problem: Dissection of aorta, unspecified [...] around 1AM with symptoms and presented to [facility]. 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 [...] of walker?: Yes DME services provided by: [facility] Discharge Medications: Current Medications TAKE these medications [...] Time Provider Department Center 06/06/2023 4:00 PM [facility] BCT4 [facility] N CT [facility] Main IMG 06/07/2023 3:30 PM Faustino Herrera MD VASC CAM 8B [facility] 06/21/2023 1:00 PM Lydia Barillas NP URO CH MOB1 [facility] Contact Information for Follow-ups [facility] (All Locations) Next Steps: Follow up Comments: Urinary retention when hospitalized, improved with flomax starting Questions: Please select the performing region: [facility] (All Locations) # of visits: 1 Referral Status: Pending Authorization Faustino Herrera MD Specialty: Vascular Surgery, General Surgery Relationship: Surgeon Libra CURRY [facility] [id number] [facility] [address] Next Steps: Follow up Comments: Follow up with established provider: [address] scan and office visit. Questions: To provider: FAUSTINO HERRERA Cosigned by Faustino Herrera MD at 05/16/2023 3:40 PM ENGRAVING PLATE MAKER AVING PLATE MAKER AVING PLATE MAKER documented in this encounter Medications at Time [...] 05/16/2023 3:23 PM CST Fr Timmy Rosales [phone] 05/16/23 1500 Time Spent Start Time 1300 Stop Time 1310 Time Calculation (min) 10 min Patient Spiritual Assessment Spirituality Assessed Yes Synagogue Affiliation Methodist Active in Caodaism Yes Spiritual Needs Communion;Prayer Clinical Encounter Type Visited With Patient and family together Response Type Continuing visit Routine Visit Follow-up Continue Visiting Yes Sacramental Encounters Communion Patient wants communion Communion Given Indicator Yes Outcomes and Progress Aligning care with patient's values Achieved Preserve dignity and respect Achieved Demonstrating care and respect Achieved Interventions Interventions Active listening;Offer spiritual/confucianism support;Prayer (Benediction) AVING PLATE MAKER * Meron Parekh NP - 05/16/2023 10:27 AM CST Vascular Surgery Daily Progress Patient Name/MRN: Eriberto Chau [id number] Treatment Team: Vascular Surgery Attending: Faustino Herrera MD Today's Date: 05/16/2023 Room/Bed: [place] [id number]/[id number] Admit Date: 05/01/2023 Code Status: Full Code Subjective Chief complaint: abdominal pain Events During This Hospitalization: 32M PMH uncontrolled HTN (non-adherence) p/w acute CP, abd pain, and SOB x 6 hours. Woke up around 1AM with symptoms and presented to [facility]. 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 [...] tablet 1,000 mg 1,000 mg oral Q6H [facility] Dustin Souza, DO 1,000 mg at 05/16/23 [...] injection 5,000 Units 5,000 Units subcutaneous Q8H [facility] Dustin Souza DO 5,000 Units at 05/16/23 [...] awake Dustin Souza DO 2 spray at 05/15/23 2158 [...] s/s bleeding Dissection of thoracoabdominal aorta (CMS/HCC) ([facility]) Assessment & Plan Patient presented on 05/01 [...] Faustino Herrera MD at 05/16/2023 11:24 AM ENGRAVING PLATE MAKER AVING PLATE MAKER AVING PLATE MAKER * Timmy Rosales - 05/15/2023 4:39 PM CST Timmy Bobby [phone] 05/15/23 1600 Time Spent Start Time 1320 Stop Time 1330 Time Calculation (min) 10 min Patient Spiritual Assessment Spirituality Assessed Yes Synagogue Affiliation Methodist Active in Caodaism Yes Spiritual Needs Communion;Prayer Clinical Encounter Type Visited With Patient and family together Response Type Continuing visit Routine Visit Follow-up Continue Visiting Yes Sacramental Encounters Communion Patient wants communion Communion Given Indicator Yes Outcomes and Progress Aligning care with patient's values Achieved Preserve dignity and respect Achieved Demonstrating care and respect Achieved Interventions Interventions Active listening;Offer spiritual/confucianism support;Prayer (Benediction) AVING PLATE MAKER * Sonia Clayton MD - 05/15/2023 7:39 AM CST Vascular Surgery Daily Progress Patient Name/MRN: Eriberto Chau [id number] Treatment Team: Vascular Surgery Attending: Faustino Herrera MD Today's Date: 05/15/2023 Room/Bed: [id number] Admit Date: 05/01/2023 Code Status: Full Code Subjective Chief complaint: abdominal pain Events During This Hospitalization: [place] 05/01 Sx TBAD 32M PMH uncontrolled HTN (non-adherence) p/w acute CP, abd pain, and SOB x 6 hours. Woke up around 1AM with symptoms and presented to [facility]. 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 [...] injection 5,000 Units 5,000 Units subcutaneous Q8H [facility] Dustin Souza DO 5,000 Units at 05/15/23 [...] Faustino Herrera MD at 05/16/2023 7:44 AM ENGRAVING PLATE MAKER AVING PLATE MAKER AVING PLATE MAKER * Sonia Clayton MD - 05/14/2023 3:17 PM CST Vascular Surgery Daily Progress Patient Name/MRN: Eriberto Chau [id number] Treatment Team: Vascular Surgery Attending: Faustino Herrera MD Today's Date: 05/14/2023 Room/Bed: [place] [id number]/[id number] Admit Date: 05/01/2023 Code Status: Full Code Subjective Chief complaint: abdominal pain Events During This Hospitalization: [place] 05/01 Sx TBAD 32M PMH uncontrolled HTN (non-adherence) p/w acute CP, abd pain, and SOB x 6 hours. Woke up around 1AM with symptoms and presented to [facility]. 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 - Neurology following. - PT/OT. AVING PLATE MAKER * Kim Bello, PT - 05/13/2023 11:33 [...] treatment team and contact the PT or LAUNDRY ROOM ATTENDANT currently assigned to this patient. If a physical therapy clinician is not assigned to this patient, please call [phone]. 05/13/23 1133 PT Last Visit Session Type [...] independence with functional mobility. 05/10/23 05/20/23 -- AVING PLATE MAKER * Tegan Dye, OT - 05/13/2023 8:03 [...] not assigned to this patient, please call [phone]. 05/13/23 0803 General Session Type Treatment OT [...] Details: Pt will be independent in ADLS AVING PLATE MAKER * Flex Parsons MD - 05/13/2023 5:47 AM CST Vascular Surgery Daily Progress Patient Name/MRN: Eriberto Chau [id number] Treatment Team: Vascular Surgery- Pager: [phone] Attending: Faustino Herrera MD Today's Date: 05/13/2023 Room/Bed: [id number] Admit Date: 05/01/2023 Code Status: Full Code [...] the false lumen. He was transferred to [facility] for further evaluation and treatment. Here, [...] All feel these findings not to be automobile rental representative of a type a dissection, therefore [...] PT/OT - TTF Flex Parsons MD, MSc [phone] For patients or family members viewing this note through [employer] programs: This note was written as a [...] Faustino Herrera MD at 05/14/2023 4:44 PM ENGRAVING PLATE MAKER AVING PLATE MAKER AVING PLATE MAKER * Nando Mijares MD - 05/13/2023 12:18 [...] Dalton Locke MD at 05/13/2023 12:59 PM ENGRAVING PLATE MAKER AVING PLATE MAKER AVING PLATE MAKER Associated attestation - Dalton Locke MD - 05/13/2023 12:59 PM ENGRAVING PLATE MAKER Attending Documentation: I have seen and examined this critically ill patient on the day of service. I have reviewed and confirmed the history, physical exam, laboratory and radiologic data with the house staff as documentedin the ICU Resident note. I have reviewed and discussed my treatment plan with the ICU team and other medical/jewelry consultant staff, making frequent assessments and decisions [...] transfer to floor today. Silverio Locke MD Database Analyst Department of Anesthesiology * Timmy Rosales - 05/12/2023 6:43 PM CST Fr Timmy Rosales [phone] 05/12/23 1800 Time Spent Start Time 1740 Stop Time 1750 Time Calculation (min) 10 min Patient Spiritual Assessment Spirituality Assessed Yes Synagogue Affiliation Methodist Active in Caodaism Yes Spiritual Needs Communion;Prayer Clinical Encounter Type Visited With Patient and family together Response Type Continuing visit Routine Visit Follow-up Continue Visiting Yes Reason for visit Sacramental;Support Sacramental Encounters Communion Patient wants communion Communion Given Indicator Yes Outcomes and Progress Aligning care with patient's values Achieved Preserve dignity and respect Achieved Demonstrating care and respect Achieved Interventions Interventions Active listening;Offer emotional support;Offer spiritual/confucianism support;Prayer (Benediction) AVING PLATE MAKER * Kim Bello, PT - 05/12/2023 9:06 [...] treatment team and contact the PT or LAUNDRY ROOM ATTENDANT currently assigned to this patient. If a physical therapy clinician is not assigned to this patient, please call [phone]. 05/12/23 0906 PT Last Visit Session Type [...] independence with functional mobility. 05/10/23 05/20/23 -- AVING PLATE MAKER * Flex Parsons MD - 05/12/2023 5:46 AM CST Vascular Surgery Daily Progress Patient Name/MRN: Eriberto Chau [id number] Treatment Team: Vascular Surgery- Pager: [phone] Attending: Faustino Herrera MD Today's Date: 05/12/2023 Room/Bed: [place] [id number]/[id number] Admit Date: 05/01/2023 Code Status: Full Code [...] the false lumen. He was transferred to [facility] for further evaluation and treatment. Here, [...] All feel these findings not to be automobile rental representative of a type a dissection, therefore [...] PT/OT - TTOU Flex Parsons MD, MSc [phone] For patients or family members viewing this note through [employer] programs: This note was written as a [...] Faustino Herrera MD at 05/12/2023 1:18 PM ENGRAVING PLATE MAKER AVING PLATE MAKER AVING PLATE MAKER * ToMeron MD - 05/12/2023 1:07 AM [...] Dalton Locke MD at 05/12/2023 3:44 PM ENGRAVING PLATE MAKER AVING PLATE MAKER AVING PLATE MAKER Associated attestation - Dalton Locke MD - 05/12/2023 3:44 PM ENGRAVING PLATE MAKER Attending Documentation: I have seen and examined this critically ill patient on the day of service. I have reviewed and confirmed the history, physical exam, laboratory and radiologic data with the house staff as documentedin the ICU Resident note. I have reviewed and discussed my treatment plan with the ICU team and other medical/jewelry consultant staff, making frequent assessments and decisions [...] Q2h neurovascular checks TTOU Silverio Locke MD Database Analyst Department of Anesthesiology * Timmy Rosales - 2023 6:24 PM CST Timmy Bobby [phone] 05/11/23 1800 Time Spent Start Time 1740 Stop Time 1750 Time Calculation (min) 10 min Patient Spiritual Assessment Spirituality Assessed Yes Synagogue Affiliation Methodist Active in Caodaism Yes Spiritual Needs Communion;Prayer Clinical Encounter Type Visited With Patient and family together Response Type Continuing visit Routine Visit Follow-up Continue Visiting Yes Reason for visit Sacramental;Support Sacramental Encounters Communion Patient wants communion Communion Given Indicator Yes Outcomes and Progress Aligning care with patient's values Achieved Preserve dignity and respect Achieved Demonstrating care and respect Achieved Interventions Interventions Active listening;Offer spiritual/confucianism support;Prayer (Benediction) AVING PLATE MAKER * Nigel Mcgraw MD - 2023 5:50 [...] please page the Neurosurgery call pager at [phone], and request the resident caring for Dr. Smith's patients. 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 Fall [...] Compliance/Behavior: Easy to engage Perseveration: Not present [place] Cognitive Assessment-Blind (MOCA-Blind) MOCA-Blind Version: Version 3 [...] End Date End Date OT LTG - [facility] [place] [place] 1 05/11/23 06/01/23 -- Goal Details: Pt will be independent in ADLS Cosigned by Dc Lopez OT at 2023 2:54 PM ENGRAVING PLATE MAKER AVING PLATE MAKER AVING PLATE MAKER * Darren Busby, RD - 2023 11:50 [...] 17 CREATININE mg/dL 1.24 0.90 -- 0.86 [id number] mL/min/1.73 m2 80 >90 -- >90 CALCIUM [...] (246 lb 0.5 oz) ESTIMATED NEEDS: Kcal/kg: (9171-9176 kcal (14-18 kcal/kg BW)). Type of Weight Used for Estimated Kcals: Current Total Protein Estimated Needs (gm): 101.64 Protein Needs Based on g/k.4 Type of Weight Used forEstimated Protein : [place] Total Fluid Estimated Needs: 1815 Fluid Needs Based on : 25 ml/kg Type of Weight Used for EstimatedFluid Needs: [place] Dietary Orders (From admission, onward) Start Ordered 05/07/23 1502 Adult Diet Regular Diet effective now Question: ([facility]) Diet type Answer: Regular 05/07/23 1501 Allergies: [...] interview INTERVENTION(S): Summary: Assess for nutrition changes, [place] diet preferences within the limits of nutrition [...] patterns, Weight changes Darren Busby MS, RD, [facility], N [phone] Coke Worker-Weekend: [phone] AVING PLATE MAKER * Flex Parsons MD - 2023 10:01 AM CST Vascular Surgery Daily Progress Patient Name/MRN: Eriberto Chau [id number] Treatment Team: Vascular Surgery- Pager: [phone] Attending: Faustino Herrera MD Today's Date: 2023 Room/Bed: [id number] Admit Date: 05/01/2023 Code Status: Full Code [...] the false lumen. He was transferred to [facility] for further evaluation and treatment. Here, [...] All feel these findings not to be automobile rental representative of a type a dissection, therefore [...] of chest/abdomen/pelvis today Flex Parsons MD, MSc [phone] For patients or family members viewing this note through [employer] programs: This note was written as a [...] Faustino Herrera MD at 2023 12:24 PM ENGRAVING PLATE MAKER AVING PLATE MAKER AVING PLATE MAKER * Pb Elizabeth, PT - 2023 9:59 [...] treatment team and contact the PT or LAUNDRY ROOM ATTENDANT currently assigned to this patient. If a physical therapy clinician is not assigned to this patient, please call [phone]. 05/11/23 0959 PT Last Visit Session Type [...] Static Standing-Balance Support Bilateral upper extremity supported (SODIUM CHLORITE OPERATOR) Static Standing-Standing Surface Floor Static Standing-Level of Assistance Minimum assistance;Moderate assistance (varying between min-mod A with R knee buckling and R lateral LOB) Static Standing-Comment/# of Minutes assist for safety/balance, R knee buckling and R lateral LOB. cueing for weight shifting. Dynamic Standing Balance Dynamic Standing-Balance Support Bilateral upper extremity supported (SODIUM CHLORITE OPERATOR) Dynamic Standing-Standing Surface Floor Dynamic Standing-Level of [...] independence with functional mobility. 05/10/23 05/20/23 -- AVING PLATE MAKER * Jonathan Mccoy - 2023 6:02 AM CST Spiritual Care Jonathan Mccoy 05/11/23 [phone] 05/11/23 0600 Time Spent Start Time 0540 Stop Time 0553 Time Calculation (min) 13 min Patient Spiritual Assessment Spirituality Assessed Yes Synagogue Affiliation Methodist Active in Caodaism Yes Spiritual Needs Prayer Clinical Encounter Type Visited With Patient Response Type Continuing visit Routine Visit Follow-up Reason for visit Support Outcomes and Progress Aligning care with patient's values Achieved Preserve dignity and respect Achieved Demonstrating care and respect Achieved [place] affirmation Achieved Establish rapport and connectedness Achieved Sense of peace Achieved Interventions Interventions Active listening;Explore hansa and values;Offer emotional support;Offer spiritual/confucianism support;Prayer 05/11/23 0600 Time Spent Start Time 0540 Stop Time 0553 Time Calculation (min) 13 min Patient Spiritual Assessment Spirituality Assessed Yes Synagogue Affiliation Methodist Active in Caodaism Yes Spiritual Needs Prayer Clinical Encounter Type Visited With Patient Response Type Continuing visit Routine Visit Follow-up Reason for visit Support Outcomes and Progress Aligning care with patient's values Achieved Preserve dignity and respect Achieved Demonstrating care and respect Achieved [place] affirmation Achieved Establish rapport and connectedness Achieved Sense of peace Achieved Interventions Interventions Active listening;Explore hansa and values;Offer emotional support;Offer spiritual/confucianism support;Prayer AVING PLATE MAKER * ToMeron MD - 2023 1:37 AM [...] FBG -1-2L, lasix 40 BID - Dulcolax [place] - Repeat cultures - sBP <140-180 05/10 [...] Rate: 10 mL/hr (05/11/23199) lidocaine, 1 mg/kg/hr ([place]), Last Rate: 1 mg/kg/hr (05/11/23199) niCARdipine, 0-2.5 [...] Dalton Locke MD at 05/12/2023 3:40 PM ENGRAVING PLATE MAKER AVING PLATE MAKER AVING PLATE MAKER Associated attestation - Dalton Locke MD - 05/12/2023 3:40 PM ENGRAVING PLATE MAKER Attending Documentation: I have seen and examined this critically ill patient on the day of service. I have reviewed and confirmed the history, physical exam, laboratory and radiologic data with the house staff as documentedin the ICU Resident note. I have reviewed and discussed my treatment plan with the ICU team and other medical/jewelry consultant staff, making frequent assessments and decisions [...] a fluid balance goal. Silverio Locke MD Database Analyst Department of Anesthesiology * Timmy Rosales - 05/10/2023 3:57 PM CST Fr Timmy Rosales [phone] 05/10/23 1500 Time Spent Start Time 1330 Stop Time 1340 Time Calculation (min) 10 min Patient Spiritual Assessment Spirituality Assessed Yes Synagogue Affiliation Methodist Active in Caodaism Yes Spiritual Needs Communion;Prayer Clinical Encounter Type Visited With Patient and family together Response Type Continuing visit Routine Visit Follow-up Continue Visiting Yes Reason for visit Sacramental;Support Sacramental Encounters Communion Patient wants communion Communion Given Indicator Yes Outcomes and Progress Aligning care with patient's values Achieved Preserve dignity and respect Achieved Demonstrating care and respect Achieved Interventions Interventions Active listening;Prayer;Offer spiritual/confucianism support (Benediction) AVING PLATE MAKER * Kim Bello, PT - 05/10/2023 11:40 [...] goal Prior Function Prior Function Level of [place]: Independent with ADLs, Independent functional transfers, Independent with ambulation Lives With: Spouse, Family Receives Help From: Spouse/Significant other, Family (inspector timers assist available) Fall within the last 6 [...] independence with functional mobility. 05/10/23 05/20/23 -- AVING PLATE MAKER * Lisa Landa MD - 05/10/2023 10:01 AM CST Neurosurgery Brief note: Lumbar drain Removal Patient with lumbar drain. Decision made to discontinue lumbar drain. Drain removed. Site closed with single interrupted stitch using 3-0 monocryl suture. Patient tolerated the procedure well. No CSFleak noted after procedure. Drain tip intact. - monitor for drainage from drain site - please page NSGY pager aluminum fabrication supervisor if any concerns ([phone]) Lisa Landa MD AVING PLATE MAKER * Flex Parsons MD - 05/10/2023 8:13 AM CST Vascular Surgery Daily Progress Patient Name/MRN: Eriberto Chau [id number] Treatment Team: Vascular Surgery- Pager: [phone] Attending: Faustino Herrera MD Today's Date: 05/10/2023 Room/Bed: [place] [id number]/[id number] Admit Date: 05/01/2023 Code Status: Full Code [...] the false lumen. He was transferred to [facility] for further evaluation and treatment. Here, [...] All feel these findings not to be automobile rental representative of a type a dissection, therefore [...] can remove today Flex Parsons MD, MSc [phone] For patients or family members viewing this note through [employer] programs: This note was written as a [...] Faustino Herrera MD at 2023 12:23 PM ENGRAVING PLATE MAKER AVING PLATE MAKER AVING PLATE MAKER * Lisa Landa MD - 05/10/2023 6:11 [...] discontinue today. Responsible Team Lisa Landa MD (Locomotive Mechanic Apprentice) Phylicia Arshad MD PhD (Perez) Devyn Mcgraw MD (Senior) Jorge Rivers MD PhD (Chief) For any questions or concerns, please contact the nurse practitioner signed in to the chart. If youare unable to reach them, you may contact the residents as listed. If it is after 6pm or you are unable to reach the BUSINESS PROCESS ARCHITECT or resident team, please page the Neurosurgery Call Pager at [phone]. Cosigned by Jaden Smith MD at 05/10/2023 9:12 PM ENGRAVING PLATE MAKER AVING PLATE MAKER AVING PLATE MAKER AVING PLATE MAKER Associated attestation - Jaden Smith MD - 05/10/2023 9:12 PM ENGRAVING PLATE MAKER I have seen and examined the patient [...] 10 mL/hr (05/10/23 0000) lidocaine, 1 mg/kg/hr ([place]), Last Rate: 1 mg/kg/hr (05/10/23 010) niCARdipine, [...] Dalton Locke MD at 05/12/2023 3:28 PM ENGRAVING PLATE MAKER AVING PLATE MAKER AVING PLATE MAKER Associated attestation - Dalton Locke MD - 05/12/2023 3:28 PM ENGRAVING PLATE MAKER Attending Documentation: I have seen and examined this critically ill patient on the day of service. I have reviewed and confirmed the history, physical exam, laboratory and radiologic data with the house staff as documentedin the ICU Resident note. I have reviewed and discussed my treatment plan with the ICU team and other medical/jewelry consultant staff, making frequent assessments and decisions [...] a fluid balance goal. Silverio Locke MD Database Analyst Department of Anesthesiology * Timmy Rosales - 05/09/2023 4:09 PM CST Fr Timmy Rosales [phone] 05/09/23 1600 Time Spent Start Time 1200 Stop Time 1210 Time Calculation (min) 10 min Patient Spiritual Assessment Spirituality Assessed Yes Synagogue Affiliation [employer] Active in Caodaism Yes Spiritual Needs Prayer Clinical Encounter Type Visited With Patient and family together Response Type Continuing visit Routine Visit Follow-up Continue Visiting Yes Reason for visit Sacramental;Support Outcomes and Progress Aligning care with patient's values Achieved Preserve dignity and respect Achieved Demonstrating care and respect Achieved Interventions Interventions Active listening;Offer spiritual/confucianism support;Prayer (Benediction) AVING PLATE MAKER * Lisa Landa MD - 05/09/2023 7:31 [...] 2 hours. Responsible Team Lisa Landa MD (Locomotive Mechanic Apprentice) Phylicia Arshad MD PhD (Perez) Devyn Mcgraw MD (Senior) Jorge Rivers MD PhD (Chief) For any questions or concerns, please contact the nurse practitioner signed in to the chart. If youare unable to reach them, you may contact the residents as listed. If it is after 6pm or you are unable to reach the BUSINESS PROCESS ARCHITECT or resident team, please page the Neurosurgery Call Pager at [phone]. Cosigned by Jaden Smith MD at 05/10/2023 10:06 AM ENGRAVING PLATE MAKER AVING PLATE MAKER AVING PLATE MAKER Associated attestation - Jaden Smith MD - 05/10/2023 10:06 AM ENGRAVING PLATE MAKER I have seen and examined the patient on 05/09/2023. I agree with the findings and plan of care as documented in the resident's/fellow's note. * Flex Parsons MD - 05/09/2023 7:19 AM CST Vascular Surgery Daily Progress Patient Name/MRN: Eriberto Chau [id number] Treatment Team: Vascular Surgery- Pager: [phone] Attending: Faustino Herrera MD Today's Date: 05/09/2023 Room/Bed: [id number] Admit Date: 05/01/2023 Code Status: Full Code [...] the false lumen. He was transferred to [facility] for further evaluation and treatment. Here, [...] All feel these findings not to be automobile rental representative of a type a dissection, therefore [...] can clamp today Flex Parsons MD, MSc [phone] For patients or family members viewing this note through [employer] programs: This note was written as a [...] Faustino Herrera MD at 05/09/2023 3:51 PM ENGRAVING PLATE MAKER AVING PLATE MAKER AVING PLATE MAKER Associated attestation - Faustino Herrera MD - 05/09/2023 3:51 PM ENGRAVING PLATE MAKER I have seen and examined the patient [...] 10 mL/hr (05/09/23 010) lidocaine, 1 mg/kg/hr ([place]), Last Rate: 1 mg/kg/hr (05/09/23 0158) norepinephrine, [...] Dalton Locke MD at 05/12/2023 3:17 PM ENGRAVING PLATE MAKER AVING PLATE MAKER AVING PLATE MAKER Associated attestation - Dalton Locke MD - 05/12/2023 3:17 PM ENGRAVING PLATE MAKER Attending Documentation: I have seen and examined this critically ill patient on the day of service. I have reviewed and confirmed the history, physical exam, laboratory and radiologic data with the house staff as documentedin the ICU Resident note. I have reviewed and discussed my treatment plan with the ICU team and other medical/jewelry consultant staff, making frequent assessments and decisions [...] small subdural blood collection. Silverio Locke MD Database Analyst Department of Anesthesiology * Franci Marin, PT - 05/08/2023 2:21 PM CST Physical Therapy 05/08/23 1421 General PT Missed Visit Reason Bedrest AVING PLATE MAKER * Timmy Rosales - 05/08/2023 1:50 PM CST Fr Timmy Rosales [phone] 05/08/23 1300 Time Spent Start Time 1320 Stop Time 1330 Time Calculation (min) 10 min Patient Spiritual Assessment Spirituality Assessed Yes Synagogue Affiliation Methodist Active in Caodaism Yes Spiritual Needs Communion;Prayer Clinical Encounter Type Visited With Patient and family together Response Type Continuing visit Routine Visit Follow-up Continue Visiting Yes Reason for visit Sacramental;Support Sacramental Encounters Communion Patient wants communion Communion Given Indicator Yes Outcomes and Progress Aligning care with patient's values Achieved Preserve dignity and respect Achieved Demonstrating care and respect Achieved Interventions Interventions Active listening;Offer spiritual/confucianism support;Prayer (Benediction) AVING PLATE MAKER * Flex Parsons MD - 05/08/2023 6:06 AM CST Vascular Surgery Daily Progress Patient Name/MRN: Eriberto Chau [id number] Treatment Team: Vascular Surgery- Pager: [phone] Attending: Faustino Herrera MD Today's Date: 05/08/2023 Room/Bed: [id number] Admit Date: 05/01/2023 Code Status: Full Code [...] the false lumen. He was transferred to [facility] for further evaluation and treatment. Here, [...] All feel these findings not to be automobile rental representative of a type a dissection, therefore [...] consider clamping tomorrow Flex Parsons MD, MSc [phone] For patients or family members viewing this note through [employer] programs: This note was written as a [...] Faustino Herrera MD at 05/09/2023 7:14 AM ENGRAVING PLATE MAKER AVING PLATE MAKER AVING PLATE MAKER * Dustin Souza, - 05/08/2023 12:09 AM [...] Rate: Stopped (05/07/23 1100) lidocaine, 1.5 mg/kg/hr ([place]), Last Rate: 1.5 mg/kg/hr (05/08/2399) norepinephrine, 0-2 [...] Dalton Locke MD at 05/08/2023 2:08 PM ENGRAVING PLATE MAKER AVING PLATE MAKER AVING PLATE MAKER Associated attestation - Dalton Locke MD - 05/08/2023 2:08 PM ENGRAVING PLATE MAKER Attending Documentation: I have seen and examined this critically ill patient on the day of service. I have reviewed and confirmed the history, physical exam, laboratory and radiologic data with the house staff as documentedin the ICU Resident note. I have reviewed and discussed my treatment plan with the ICU team and other medical/jewelry consultant staff, making frequent assessments and decisions [...] small subdural blood collection. Silverio Locke MD Database Analyst Department of Anesthesiology * Tamiko Miles MD PhD - 05/07/2023 8:54 AM CST Patient seen on 05/07/2023 during rounds. Plan for care was discussed and documented by the team based on discussion between team and primary attending. I am available for any urgent or emergent issues today. Tamiko Miles MD, PhD 05/07/2023 8:54 AM AVING PLATE MAKER * Flex Parsons MD - 05/07/2023 8:35 AM CST Vascular Surgery Daily Progress Patient Name/MRN: Eriberto Chau [id number] Treatment Team: Vascular Surgery- Pager: [phone] Attending: Faustino Herrera MD Today's Date: 05/07/2023 Room/Bed: [id number] Admit Date: 05/01/2023 Code Status: Full Code [...] the false lumen. He was transferred to [facility] for further evaluation and treatment. Here, [...] All feel these findings not to be automobile rental representative of a type a dissection, therefore [...] (Dr Abarca) consult Flex Parsons MD, MSc [phone] For patients or family members viewing this note through [employer] programs: This note was written as a [...] Faustino Herrera MD at 05/09/2023 7:14 AM ENGRAVING PLATE MAKER AVING PLATE MAKER AVING PLATE MAKER * Phylicia Arshad MD - 05/07/2023 7:40 [...] or you are unable to reach the BUSINESS PROCESS ARCHITECT or resident team, please page the Neurosurgery Call Pager at [phone]. Cosigned by Jaden Smith MD at 05/07/2023 10:05 PM ENGRAVING PLATE MAKER AVING PLATE MAKER AVING PLATE MAKER AVING PLATE MAKER Associated attestation - Jaden Smith MD - 05/07/2023 10:05 PM ENGRAVING PLATE MAKER I have seen and examined the patient [...] sodium chloride 0.9%, 0.5-20 mL, intra-catheter, Q8H [facility] Continuous Infusions:clevidipine, 0-32 mg/hr, Last Rate: 3 [...] Dalton Locke MD at 05/08/2023 2:06 PM ENGRAVING PLATE MAKER AVING PLATE MAKER AVING PLATE MAKER Associated attestation - Dalton Locke MD - 05/08/2023 2:06 PM ENGRAVING PLATE MAKER Attending Documentation: I have seen and examined this critically ill patient on the day of service. I have reviewed and confirmed the history, physical exam, laboratory and radiologic data with the house staff as documentedin the ICU Resident note. I have reviewed and discussed my treatment plan with the ICU team and other medical/jewelry consultant staff, making frequent assessments and decisions [...] small subdural blood collection. 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 Type of Weight Used for Estimated Kcals: Current Total Protein Estimated Needs (gm): 101.64 Protein Needs Based on g/k.4 Type of Weight Used forEstimated Protein : [place] Total Fluid Estimated Needs: 1815 Fluid Needs Based on : 25 ml/kg Type of Weight Used for EstimatedFluid Needs: [place] Allergies: Reviewed, NKFA IMPRESSION: RD follow-up on [...] interview INTERVENTION(S): Summary: Assess for nutrition changes, [place] diet preferences within the limits of nutrition [...] patterns, Weight changes Darren Busby MS, RD, [facility], N [phone] Coke Worker-Weekend: [phone] AVING PLATE MAKER * Flex Parsons MD - 05/06/2023 6:45 AM CST Vascular Surgery Daily Progress Patient Name/MRN: Eriberto Chau [id number] Treatment Team: Vascular Surgery- Pager: [phone] Attending: Faustino Herrera MD Today's Date: 05/06/2023 Room/Bed: [id number] Admit Date: 05/01/2023 Code Status: Full Code [...] PM Result Value Ref Range Product code A2901B13 Unit Number [id number] Product Blood Type APOS Dispense Status PRESUMED TRANSFUSED Protime-INR Collection Time: 05/05/23 8:14 PM Result Value Ref Range PT 16.9 (H) 10.3 - 13.7 sec INR 1.48 (H) 0.90 - 1.20 aPTT Collection Time: 05/05/23 8:14 PM Result Value Ref Range aPTT 35 28 - 38 sec Prepare platelets: 2 Units Collection Time: 05/05/23 8:17 PM Result Value Ref Range Product code T5351M66 Unit Number [id number] Product Blood Type APOS Dispense Status ISSUED [...] the false lumen. He was transferred to [facility] for further evaluation and treatment. Here, [...] CTS was consulted. CTA reviewed with Daniel Baldersa, and Mesha. All feel these findings not to be automobile rental representative of a type a dissection, therefore [...] urgent from our perspective as it won't record changer tester, lumbar drain, f/u NSGY - cardiology (Dr Abarca) consult Flex Parsons MD, MSc [phone] For patients or family members viewing this note through [employer] programs: This note was written as a [...] Faustino Herrera MD at 05/06/2023 12:25 PM ENGRAVING PLATE MAKER AVING PLATE MAKER AVING PLATE MAKER Associated attestation - Faustino Herrera MD - 05/06/2023 12:25 PM ENGRAVING PLATE MAKER I have seen and examined the patient [...] Gus Busby MD at 05/06/2023 11:13 AM ENGRAVING PLATE MAKER AVING PLATE MAKER AVING PLATE MAKER AVING PLATE MAKER * Carlos Alberto Nix MD PhD - [...] VerifyNow No results found for: SALICYLATE , [id number] CXR: reviewed EKG: reviewed Patient NPO?: N/A [...] to proceed. Carlos Alberto Nix MD PhD AVING PLATE MAKER * Timmy Rosales - 05/05/2023 4:35 PM CST Fr Timmy Rosales [phone] 05/05/23 1600 Time Spent Start Time 1510 Stop Time 1520 Time Calculation (min) 10 min Patient Spiritual Assessment Spirituality Assessed Yes Synagogue Affiliation Methodist Active in Caodaism Yes Spiritual Needs Prayer Clinical Encounter Type Visited With Patient and family together Response Type Continuing visit Routine Visit Follow-up Continue Visiting Yes Reason for visit Sacramental;Support Outcomes and Progress Aligning care with patient's values Achieved Preserve dignity and respect Achieved Demonstrating care and respect Achieved Interventions Interventions Active listening;Offer spiritual/confucianism support;Prayer (Benediction) AVING PLATE MAKER * Cleveland Hawley MD - 05/05/2023 2:45 [...] In: 3480.6 [I.V.:2030.6; NG/GT:510; IV Piggyback:940] Out: 71457 [Urine:17621] Net IO Since Admission: 4,855.66 mL [05/05/23 [...] more epistaxis and packing should dissolve - Floyd nasal spray q2h scheduled while awake - [place]ola gel (sodium chloride - aloe vera) for [...] Neck Surgery QUESTIONS: Weekdays daytime: [facility] Consult New consults, after-hours & weekends: [facility] Resident Primary/Night Float ENT scheduling line: [phone] (please include in discharge paperwork as needed) Cosigned by Kaylie Saldana MD at 05/05/2023 8:56 PM ENGRAVING PLATE MAKER AVING PLATE MAKER AVING PLATE MAKER * Flex Parsons MD - 05/05/2023 11:15 AM CST Vascular Surgery Daily Progress Patient Name/MRN: Eriberto Chau [id number] Treatment Team: Vascular Surgery- Pager: [phone] Attending: Faustino Herrera MD Today's Date: 05/05/2023 Room/Bed: [place] [id number] Admit Date: 05/01/2023 Code Status: Full Code [...] In: 3480.6 [I.V.:2030.6; NG/GT:510; IV Piggyback:940] Out: 29202 [Urine:35959] I/O this shift: In: 42.5 [I.V.:32.5; NG/GT:10] [...] the false lumen. He was transferred to [facility] for further evaluation and treatment. Here, [...] All feel these findings not to be automobile rental representative of a type a dissection, therefore [...] (Dr Abarca) consult Flex Parsons MD, MSc [phone] For patients or family members viewing this note through [employer] programs: This note was written as a [...] Faustino Herrera MD at 05/05/2023 12:29 PM ENGRAVING PLATE MAKER AVING PLATE MAKER AVING PLATE MAKER * Radha Wyatt, [employer] TECHNICIAN - 05/05/2023 11:01 AM CST EXTUBATION Situation: Per MD/CYNTHIA order, the patient was extubated without incident, and resting on 40% aerosol face mask.No signs of respiratory distress noted at this time. Plan: Continue to monitor patients respiratory status and intervene as necessary. AVING PLATE MAKER * Mariel Pope OT - 05/05/2023 7:13 AM CST Occupational Therapy 05/05/23712 General OT Missed Visit Reason Sedated;Bedrest (intubated, sedated) AVING PLATE MAKER * Thea Rizzo MD - 05/05/2023 12:04 [...] sodium chloride 0.9%, 0.5-20 mL, intra-catheter, Q8H [facility] Continuous Infusions:clevidipine, 0-32 mg/hr, Last Rate: Stopped [...] per 24 hour Intake 3937 ml Output 41823 ml Net -6438 ml Ventilator settings: Adult [...] Carline Jerome MD at 05/05/2023 1:23 PM ENGRAVING PLATE MAKER AVING PLATE MAKER AVING PLATE MAKER Associated attestation - Carline Jerome MD - 05/05/2023 1:23 PM ENGRAVING PLATE MAKER Attending Documentation: I have seen and examined this critically ill patient on the day of service. I have reviewed and confirmed the history, physical exam, laboratory and radiologic data with the house staff as documentedin the ICU Resident note. I have reviewed and discussed my treatment plan with the ICU team and other medical/jewelry consultant staff, making frequent assessments and decisions [...] CREATININE mg/dL 1.38* 1.27 1.36* -- 1.19 [id number] mL/min/1.73 m2 71 78 72 -- 84 [...] (H) 05/04/2023 NURSING ASSESSMENT: Last BM Date: (LAUNDRY ROOM ATTENDANT) Bowel Sounds (All Quadrants): Hypoactive Toni Scale [...] (236 lb 15.9 oz) ESTIMATED NEEDS: Kcal/kg: (1726-5428 kcal (14-18 kcal/kg BW)). Type of Weight Used for Estimated Kcals: Current Total Protein Estimated Needs (gm): 101.64 Protein Needs Based on g/k.4 Type of Weight Used forEstimated Protein : [place] Total Fluid Estimated Needs: 1815 Fluid Needs Based on : 25 ml/kg Type of Weight Used for EstimatedFluid Needs: [place] Dietary Orders (From admission, onward) Start Ordered [...] function Darren Busby MS, RD, CNSC, LDN [phone] [employer] Worker-Weekend: [phone] AVING PLATE MAKER * Flex Parsons MD - 05/04/2023 7:30 AM CST Vascular Surgery Daily Progress Patient Name/MRN: Eriberto Chau [id number] Treatment Team: Vascular Surgery- Pager: [phone] Attending: Faustino Herrera MD Today's Date: 05/04/2023 Room/Bed: [id number] Admit Date: 05/01/2023 Code Status: Full Code [...] the false lumen. He was transferred to [facility] for further evaluation and treatment. Here, [...] All feel these findings not to be automobile rental representative of a type a dissection, therefore [...] consider respiratory panel Flex Parsons MD, MSc [phone] For patients or family members viewing this note through [employer] programs: This note was written as a [...] Faustino Herrera MD at 05/05/2023 12:29 PM ENGRAVING PLATE MAKER AVING PLATE MAKER AVING PLATE MAKER * Thea Rizzo MD - 05/04/2023 12:01 [...] sodium chloride 0.9%, 0.5-20 mL, intra-catheter, Q8H [facility] Continuous Infusions:clevidipine, 0-32 mg/hr, Last Rate: 6 [...] Carline Jerome MD at 05/04/2023 9:26 AM ENGRAVING PLATE MAKER AVING PLATE MAKER AVING PLATE MAKER Associated attestation - Carline Jerome MD - 05/04/2023 9:26 AM ENGRAVING PLATE MAKER Attending Documentation: I have seen and examined this critically ill patient on the day of service. I have reviewed and confirmed the history, physical exam, laboratory and radiologic data with the house staff as documentedin the ICU Resident note. I have reviewed and discussed my treatment plan with the ICU team and other medical/jewelry consultant staff, making frequent assessments and decisions [...] 05/03/2023 3:56 PM CST Fr Timmy Rosales [phone] 05/03/23 1500 Time Spent Start Time 1210 Stop Time 1220 Time Calculation (min) 10 min Patient Spiritual Assessment Spirituality Assessed Yes Synagogue Affiliation Methodist Active in Caodaism Yes Spiritual Needs Prayer Clinical Encounter Type Visited With Patient and family together Response Type Continuing visit Routine Visit Follow-up Continue Visiting Yes Reason for visit Sacramental;Support Outcomes and Progress Aligning care with patient's values Achieved Preserve dignity and respect Achieved Demonstrating care and respect Achieved Interventions Interventions Active listening;Offer emotional support;Offer spiritual/confucianism support;Prayer (Benediction) AVING PLATE MAKER * Flex Parsons MD - 05/03/2023 6:24 AM CST Vascular Surgery Daily Progress Patient Name/MRN: Eriberto Chau [id number] Treatment Team: Vascular Surgery- Pager: [phone] Attending: Alonzo Duncan MD Today's Date: 05/03/2023 Room/Bed: [id number] Admit Date: 05/01/2023 Code Status: Full Code [...] the false lumen. He was transferred to [facility] for further evaluation and treatment. Here, [...] All feel these findings not to be automobile rental representative of a type a dissection, therefore [...] support per ICU Flex Parsons MD, MSc [phone] For patients or family members viewing this note through [employer] programs: This note was written as a [...] Faustino Herrera MD at 05/03/2023 8:06 AM ENGRAVING PLATE MAKER AVING PLATE MAKER AVING PLATE MAKER * Thea Rizzo MD - 05/03/2023 12:10 [...] 10 mL/hr (05/03/23 0000) lidocaine, 1 mg/kg/hr ([place]), Last Rate: Stopped (05/02/23 1632) propofol, 0-50 [...] Carline Jerome MD at 05/03/2023 2:29 PM ENGRAVING PLATE MAKER AVING PLATE MAKER AVING PLATE MAKER Associated attestation - Carline Jerome MD - 05/03/2023 2:29 PM ENGRAVING PLATE MAKER Attending Documentation: I have seen and examined this critically ill patient on the day of service. I have reviewed and confirmed the history, physical exam, laboratory and radiologic data with the house staff as documentedin the ICU Resident note. I have reviewed and discussed my treatment plan with the ICU team and other medical/jewelry consultant staff, making frequent assessments and decisions [...] MAR for full assessments and meds given AVING PLATE MAKER * Ann Goldstein MD - 05/02/2023 6:39 PM CST Vascular Surgery Daily Progress Patient Name/MRN: Eriberto Chau [id number] Attending: Alonzo Duncan MD Today's Date: 05/02/2023 [...] mL (8 mg/mL) infusion (premix) 1 mg/kg/hr ([place]) intravenous Continuous Manuel Jarrett MD Stopped at [...] in sodium chloride 0.9% (premix) intravenousPRN Emeka aBrrow MD 100 mcg at 05/02/23 1703 phenylephrine [...] repair Ann Goldstein MD Vascular Surgery Fellow [phone] Cosigned by Alonzo Duncan MD at 05/03/2023 4:20 PM ENGRAVING PLATE MAKER AVING PLATE MAKER AVING PLATE MAKER * Faustino Herrera MD - 05/02/2023 5:39 [...] arterial rupture. He gave consent for surgery. AVING PLATE MAKER * Nicole Bergman RN - 05/02/2023 4:46 PM CST Pt taken off to OR via bed and continuous cardiac monitors with gtts by OR staff. AVING PLATE MAKER * Timmy Rosales. - 05/02/2023 3:43 PM CST Fr Timmy Rosales [phone] 05/02/23 1500 Time Spent Start Time 1220 Stop Time 1230 Time Calculation (min) 10 min Patient Spiritual Assessment Spirituality Assessed Yes Synagogue Affiliation Methodist Active in Caodaism Yes Spiritual Needs Anointing;Prayer Clinical Encounter Type Visited With Patient and family together Response Type Routine visit Routine Visit Introduction Reason for visit Sacramental;Support Sacramental Encounters Sacrament of Sick-Anointing Anointed Outcomes and Progress Aligning care with patient's values Achieved Preserve dignity and respect Achieved Demonstrating care and respect Achieved Interventions Interventions Active listening;Offer emotional support;Prayer (Benediction) AVING PLATE MAKER * Mariel Pope OT - 05/02/2023 3:38 PM CST Occupational Therapy 05/02/23 1538 General OT Missed Visit Reason Bedrest AVING PLATE MAKER * Ann Clay MD - 05/02/2023 2:00 [...] Carline Jerome MD at 05/02/2023 8:44 AM ENGRAVING PLATE MAKER AVING PLATE MAKER AVING PLATE MAKER AVING PLATE MAKER Associated attestation - Carline Jerome MD - 05/02/2023 8:44 AM ENGRAVING PLATE MAKER Attending Documentation: I have seen and examined this critically ill patient on the day of service. I have reviewed and confirmed the history, physical exam, laboratory and radiologic data with the house staff as documentedin the ICU Resident note. I have reviewed and discussed my treatment plan with the ICU team and other medical/jewelry consultant staff, making frequent assessments and decisions [...] around 1AM with symptoms and presented to [facility]. 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 This time was in addition to and separate from care provided by other practitioners on this day of service. I spent time reviewing and interpreting data from bedside monitors, laboratory results, and imaging, I spent time discussing the management of this critically ill patient with consultants and the medical staff and I spent time documenting in the medical record AVING PLATE MAKER * Dalton Locke MD - 05/12/2023 4:16 [...] plan with the patient's team and other medical/jewelry consultant staff. This time was in addition to and separate from care provided by other practitioners on this day of service. I spent time reviewing and interpreting data from bedside monitors, laboratory results, and imaging, I spent time discussing the management of this critically ill patient with consultants and the medical staff and I spent time documenting in the medical record AVING PLATE MAKER * Dalton Locke MD - 2023 4:16 [...] plan with the patient's team and other medical/jewelry consultant staff. This time was in addition to and separate from care provided by other practitioners on this day of service. I spent time reviewing and interpreting data from bedside monitors, laboratory results, and imaging, I spent time discussing the management of this critically ill patient with consultants and the medical staff and I spent time documenting in the medical record AVING PLATE MAKER * Dalton Locke MD - 05/10/2023 4:14 [...] plan with the ICU team and other medical/jewelry consultant staff, making frequent assessments and decisions [...] spent time documenting in the medical record AVING PLATE MAKER * Dalton Locke MD - 05/09/2023 3:58 [...] plan with the ICU team and other medical/jewelry consultant staff, making frequent assessments and decisions [...] spent time documenting in the medical record AVING PLATE MAKER * Dalton Locke MD - 05/08/2023 2:53 [...] plan with the ICU team and other medical/jewelry consultant staff, making frequent assessments and decisions [...] spent time documenting in the medical record AVING PLATE MAKER AVING PLATE MAKER * Dalton Locke MD - 05/07/2023 2:55 [...] plan with the ICU team and other medical/jewelry consultant staff, making frequent assessments and decisions [...] spent time documenting in the medical record AVING PLATE MAKER * Thea Rizzo MD - 05/07/2023 1:11 PM CSTAssociated Order(s): Arterial Line Insertion Post-Procedure Diagnose(s): Dissection of thoracoabdominal aorta (CMS/HCC) (HCC) Arterial Line Insertion Date/Time: 05/07/2023 1:42 PM Performed by: Thea Rizzo MD Authorized by: Thea Rizzo MD [place] Protocol: Informed consent: Risks, benefits, alternatives discussed and 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 Silverio Locke MD Database Analyst Department of Anesthesiology * Michael Hamm MD - 05/07/2023 2:50 AM CSTAssociated Order(s): Arterial Line Insertion Post-Procedure Diagnose(s): Dissection of aorta, unspecified portion of aorta (HCC) Arterial Line Insertion Date/Time: 05/07/2023 2:50 AM Performed by: Michael Hamm MD Authorized by: Michael Hamm MD [place] Protocol: RN Notified of Procedure: yes Informed [...] Dalton Locke MD at 05/08/2023 1:47 PM ENGRAVING PLATE MAKER AVING PLATE MAKER AVING PLATE MAKER * Dustin Souza DO - 05/06/2023 9:35 PM CSTAssociated Order(s): Intubation Post-Procedure Diagnose(s): Dissection of aorta, unspecified portion of aorta (HCC) Intubation Date/Time: 05/06/2023 9:36 PM Performed by: Dustin Souza DO Authorized by: Dustin Souza DO [place] Protocol: RN Notified of Procedure: yes Informed [...] Dalton Locke MD at 05/08/2023 1:47 PM ENGRAVING PLATE MAKER AVING PLATE MAKER AVING PLATE MAKER * Gonzalez Eduardo MD - 05/05/2023 11:32 [...] Jaden Smith MD at 05/06/2023 2:52 PM ENGRAVING PLATE MAKER AVING PLATE MAKER AVING PLATE MAKER * Shira Dodson MD - 05/05/2023 10:05 PM CSTAssociated Order(s): Lumbar Drain Post-Procedure Diagnose(s): Dissection of aorta, unspecified portion of aorta (HCC) Lumbar Drain Date/Time: 05/05/2023 10:05 AM Performed by: Shira Dodson MD Authorized by: Shira Dodson MD [place] Protocol: RN Notified of Procedure: yes Informed [...] of neurosurgical team performing procedure under sedation. AVING PLATE MAKER * Carline Jerome MD - 05/05/2023 1:24 [...] plan with the ICU team and other medical/jewelry consultant staff, making frequent assessments and decisions [...] spent time documenting in the medical record AVING PLATE MAKER * Carline Jerome MD - 05/04/2023 3:00 [...] plan with the ICU team and other medical/jewelry consultant staff, making frequent assessments and decisions [...] spent time documenting in the medical record AVING PLATE MAKER * Thea Rizzo MD - 05/03/2023 9:57 PM CSTAssociated Order(s): Central Line Insertion Post-Procedure Diagnose(s): Dissection of aorta, unspecified portion of aorta (HCC) Central Line Insertion Date/Time: 05/03/2023 9:57 PM Performed by: Thea Rizzo MD Authorized by: Thea Rizzo MD [place] Protocol: RN Notified of Procedure: yes Informed consent: Risks, benefits, alternatives discussed and patient/automobile rental representative/guardian agrees and accepts Patient's stated name/ [...] Carline Jerome MD at 05/04/2023 3:01 PM ENGRAVING PLATE MAKER AVING PLATE MAKER AVING PLATE MAKER * Carline Jerome MD - 05/03/2023 2:29 [...] plan with the ICU team and other medical/jewelry consultant staff, making frequent assessments and decisions [...] spent time documenting in the medical record AVING PLATE MAKER * Carline Jerome MD - 05/02/2023 5:26 [...] plan with the ICU team and other medical/jewelry consultant staff, making frequent assessments and decisions [...] spent time documenting in the medical record AVING PLATE MAKER documented in this encounter Consult Notes * [...] was transferred from the outside hospital to [facility] for further management. On arrival at [facility] at 5:00 a.m. blood pressure 187/118 [...] right costophrenic angle is excluded from the [id number]. No pneumothorax. Dictated by: Chris Turner MD [...] by: Aaron Schafer M.D. Echocardiogram report reviewed [id number] left ventricular Left ventricular ejection fraction reported [...] seeing him for consultation. Joaquín Abarca MD AVING PLATE MAKER * Gardenia Resendiz LCSW - 05/06/2023 11:39 AM CSTAssociated Order(s): IP CONSULT TO SOCIAL WORK Social work acknowledges order for patient's family seeking additional community resources. Social work spoke with patient's significant other Tania ([phone]). She stated that the house hold consists of patient, herself and 7 children. Both herself and patient work, however it is uncertain how long patient will be unable to work. Patient does not have any short term or custodial benefits through his employer. Patient has already applied for food stamps, application is pending. Social work discussed referrals being sent through [employer] for mortgage payment assistance and food assistance, Tania provided consent. Referrals sent to [facility] and [facility] for mortgage assistance and [employer] for food assistance. No other social work needs at this time. Gardenia Resendiz LCSW AVING PLATE MAKER * Dewayne Looney MD - 05/06/2023 8:38 [...] tablet 1,000 mg 1,000 mg oral Q6H [facility] aspirin chewable tablet 81 mg 81 mg oral Daily bumetanide (BUMEX) 0.25 mg/mL injection 2 mg 2 mg intravenous Q6H [facility] carvediloL (COREG) tablet 50 mg 50 mg oral BID chlorhexidine (PERIDEX) 0.12 % solution 15 mL 15 mL swish & spit BID dilTIAZem (CARDIZEM) injection 15 mg 15 mg intravenous Q8H docusate (COLACE) 10 mg/mL oral liquid 100 mg 100 mg oral BID [Held by Provider] heparin 5,000 unit/mL injection 5,000 Units 5,000 Units subcutaneous Q8H [facility] lidocaine (ASPERCREME) 4 % patch 2 patch [...] flush 0.5-20 mL 0.5-20 mL intra-catheter Q8H [facility] Continuous Medications: Current Facility-Administered Medications Medication Dose [...] please contact neurology consults senior resident at [phone] and specify that this consult was staffed with Consult Team A. Dewayne Looney MD Resident Physician Neurology, PGY-4 05/06/23 Cosigned by Bridgett Gonzalez MD at 05/06/2023 10:47 PM ENGRAVING PLATE MAKER AVING PLATE MAKER AVING PLATE MAKER Associated attestation - Bridgett Gonzalez MD - 05/06/2023 10:47 PM ENGRAVING PLATE MAKER Attending Documentation: I have seen and examined [...] NEUROSURGERY Neurosurgery Consultation Patient: Eriberto Chau CSN: [id number] : 1990 Admission date: 05/01/2023 Length of [...] patient's primary contact is his mother Meron ([phone]). Family history: No family history on file. [...] discussed with the chief resident and attending aluminum fabrication supervisor. Carlos Alberto Nix MD PhD Cosigned by Jaden Smith MD at 05/06/2023 11:37 PM ENGRAVING PLATE MAKER AVING PLATE MAKER AVING PLATE MAKER AVING PLATE MAKER AVING PLATE MAKER AVING PLATE MAKER AVING PLATE MAKER Associated attestation - Jaden Smith MD - 05/06/2023 11:37 PM ENGRAVING PLATE MAKER I have seen and examined the patient [...] the end of the case. Per Anesthesia BOOK CLEANER report, the patient began having left- sided [...] kept intubated and transferred to the MICU. -Floyd nasal spray QID, [place] nasal gel around nares BID to keep [...] during daytime hours: [facility] > Otolaryngology > [facility] Established Consults Weekends or after 6pm M-F: [facility]>Otolaryngology>[facility] Resident Nightfloat Primary or ENT consult phone: Cosigned by Kaylie Saldana MD at 05/05/2023 8:49 PM ENGRAVING PLATE MAKER AVING PLATE MAKER AVING PLATE MAKER Associated attestation - Kaylie Saldana MD - 05/05/2023 8:49 PM ENGRAVING PLATE MAKER I have seen and examined the patient [...] the false lumen. He was transferred to [facility] for further evaluation and treatment. Here, [...] 5 mg, intravenous, Q15 Min PRN, Ann lCay MD, 5 mgat 05/02/23 0811 esmolol in [...] mL (8 mg/mL) infusion (premix), 1 mg/kg/hr ([place]), intravenous, Continuous, Manuel Jarrett MD, Last Rate: [...] AM Result Value Ref Range Product code P3311Y01 Unit Number [id number] Product Blood Type APOS Dispense Status CROSSMATCHED Product code J6025I05 Unit Number [id number] Product Blood Type APOS Dispense Status CROSSMATCHED Product code D9242J83 Unit Number [id number] Product Blood Type APOS Dispense Status CROSSMATCHED Product code Q9153E00 Unit Number [id number] Product Blood Type APOS Dispense Status CROSSMATCHED [...] the false lumen. He was transferred to [facility] for further evaluation and treatment. Here, [...] All feel these findings not to be automobile rental representative of a type a dissection, therefore [...] Mirna Sanchez MD at 05/02/2023 3:49 PM ENGRAVING PLATE MAKER AVING PLATE MAKER AVING PLATE MAKER * Aaron, Josseline Li, MD - 05/01/2023 [...] around 1AM with symptoms and presented to [facility]. 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. TYPE OF STUDY: Multiple CT images [...] images may or may not represent the [place] source data set and thus may contain [...] IMAGING STUDY STUDY INITIALLY PERFORMED: 05/01/[address] [facility]. TYPE OF STUDY: Multiple CT images [...] opacification/mixing occurring from likely fenestration below the [id number]. The nonopacification of the false lumen may [...] images may or may not represent the [place] source data set and thus may contain [...] only and have not been reviewed by [facility] Radiology. There will be no report generated by a [facility] Radiologist. ECG 12 lead Meron Monterroso [...] Alonzo Duncan MD at 05/01/2023 3:25 PM ENGRAVING PLATE MAKER AVING PLATE MAKER AVING PLATE MAKER documented in this encounter Nursing Notes * Nataliya English RN - 05/16/2023 4:40 PM CST DC education complete. Meds delivered from [facility]. Pt has ride here. AVING PLATE MAKER documented in this encounter ED Notes * [...] time. Psychiatric: Mood and Affect: Mood normal. [facility] Medical Decision Making Pt is a [...] Pre-Arrival Note The patient is coming from [facility] accepted by Dr Granados patient has a Type B dissection . The patients report called to Dr Cisse . The patient has had NitroDrip started as well as Labetalol Drip By: Meron Monterroso MD Time: 05/01 0549 Comment: Outside hospital images being uploaded By: [...] CT surgery call them Dispo: ICU By: Lsia Christiansen MD Time: 05/01 700 Comment: Have [...] Nagi Landa MD at 05/01/2023 11:33 PM ENGRAVING PLATE MAKER AVING PLATE MAKER AVING PLATE MAKER Associated attestation - Nagi Landa MD - 05/01/2023 11:33 PM ENGRAVING PLATE MAKER I have seen and examined the patient [...] B dissection. Pt A&Ox4, Hypertensive to 180's. AVING PLATE MAKER * Gracie Cee RN - 05/01/2023 4:58 AM CST [facility] Expected date: 05/01/23 Expected time: 4:46 AM Means of arrival: Comments: Gracie Cee RN 05/01/23 0452 AVING PLATE MAKER documented in this encounter Miscellaneous Notes * Result Encounter Note - Faustino Herrera MD - 05/16/2023 4:[address]ER [address] reviewed, demonstrating interval growth. Given his SCI after index procedure, will plan to manage medically at this point. Will need repeat CTA CAP in 1 m post discharge with plans for intervention if growth persists. AVING PLATE MAKER * Plan of Care - Nataliya English [...] had cat scan. Orders for dc placed AVING PLATE MAKER * Assessment & Plan Note - Meron Parekh NP - 05/16/2023 10:44 AM ENGRAVING PLATE MAKER Associated Problem(s): Urinary retention Patient with urinary retention requiring straight cath X1 05/15, now voiding without any issues. - Continue Flomax. - Patient requests urology follow up, referral placed. AVING PLATE MAKER * Plan of Care - Gladys Dietz RN - 05/16/2023 6:40 AM ENGRAVING PLATE MAKER Goals: Clinical Goals for the Shift: VSS, [...] and injury in home environment Outcome: Progressing AVING PLATE MAKER * Plan of Care - Gladys Dietz RN - 05/15/2023 5:58 AM ENGRAVING PLATE MAKER Goals: Clinical Goals for the Shift: VSS, [...] and injury in home environment Outcome: Progressing AVING PLATE MAKER * Plan of Care - Gladys Dietz RN - 05/14/2023 6:09 AM ENGRAVING PLATE MAKER Goals: Clinical Goals for the Shift: VSS, [...] dietary choices will improve 05/14/2023 0609 by Gladys Dietz [...] 06 by Gladys Dietz RN Outcome: Progressing AVING PLATE MAKER * Plan of Care - Josh Petersen RN - 05/13/2023 6:46 PM ENGRAVING PLATE MAKER Problem: Activity: Goal: Mobility will improve Outcome: [...] Summary: VSS, ambulatory, pain control, turns sulf AVING PLATE MAKER * Assessment & Plan Note - Meron Parekh NP - 05/13/2023 12:49 PM ENGRAVING PLATE MAKER Associated Problem(s): HTN (hypertension) Hx of uncontrolled HTN, non-compliant to medications. - Need to avoid hypotension in post TEVAR period. - SBP goal less than 180. - Currently on Coreg 12.5mg BID. AVING PLATE MAKER * Assessment & Plan Note - Meron Parekh NP - 05/13/2023 12:43 PM ENGRAVING PLATE MAKER Associated Problem(s): Pneumonia Tracheal aspirate 05/05 with Haemophilus Inf - susana(05/04 - 05/10), linezolid (05/04-05/06) AVING PLATE MAKER * Assessment & Plan Note - Meron Parekh NP - 05/13/2023 12:42 PM ENGRAVING PLATE MAKER Associated Problem(s): Epistaxis Significant nose bleed in the OR requiring intra-op ENT c/s. DL performed, no other sources of bleeding visualized. ACT post protamine 149. - ENT following - ocean spray tid - no other s/s bleeding AVING PLATE MAKER * Assessment & Plan Note - Meron Parekh NP - 05/13/2023 12:41 PM ENGRAVING PLATE MAKER Associated Problem(s): Dissection of thoracoabdominal aorta (CMS/HCC) [...] plan to discharge to home this afternoon. AVING PLATE MAKER AVING PLATE MAKER AVING PLATE MAKER AVING PLATE MAKER AVING PLATE MAKER * Plan of Ann - Vivian Wilcox [...] and injury in home environment Outcome: Progressing AVING PLATE MAKER * Plan of Ann - Veronica Savage [...] Goal: Pain level will decrease Outcome: Progressing AVING PLATE MAKER * Plan of Care - Veronica Bobo [...] free from injury from falls Outcome: Progressing AVING PLATE MAKER * Plan of Care - Yulisa Polk RRT - 05/12/2023 3:48 AM CST Patient did not wear hospital provided NPPV overnight. AVING PLATE MAKER * Plan of Care - Sally Ross [...] and injury in home environment Outcome: Progressing AVING PLATE MAKER * Plan of Care - Mateo Maza, FAY - 2023 4:43 AM CST [facility] CPAP PLAN: The patient will conitnue to wear BJ CPAP for JANELLE when sleeping. V 60 CPAP 7 cmH2O, AVING PLATE MAKER * Plan of Care - Veronica Savage [...] pain control plan will improve Outcome: Progressing AVING PLATE MAKER * Plan of Care - Sally Ross [...] Goal: Pain level will decrease Outcome: Progressing AVING PLATE MAKER * Plan of Care - Teagan Jung [...] ordered and continue to monitor the patient. AVING PLATE MAKER * Plan of Care - Alana Yee [...] Goal: Pain level will decrease Outcome: Progressing AVING PLATE MAKER * Plan of Care - Gardenia Resendiz LCSW - 05/09/2023 3:16 PM CST Social work received notification through [employer] that patient has been accepted to [facility] for mortgage assistance. [facility] to reach out to patient/SO directly for assistance. Gardenia Resendiz LCSW AVING PLATE MAKER * Plan of Care - Christina Jones [...] made: TBD Support following discharge: meron blankenship [phone] Solange Ireland [phone] Transportation: ambulance Patient's Identified Problem/Goal Problem: Ensure acute medical needs are met and that patient has a safe discharge plan. Goal: Secure a discharge plan that patient/family are agreeable with and ensure patient has continuum of care. Patient and family are agreeable with plan. completions manager will continue to follow and assist with discharge planning as needed AVING PLATE MAKER * Plan of Care - Mateo Maza RRT - 05/09/2023 5:30 AM CST [facility] CPAP PLAN: The patient will continue to wear [facility] CPAP when sleeping for JANELLE. AVING PLATE MAKER * Plan of Care - Karolina Arana [...] Goal: Pain level will decrease Outcome: Progressing AVING PLATE MAKER * Plan of Ann - Pooja Cameron RN - 05/08/2023 5:47 PM ENGRAVING PLATE MAKER Problem: Activity: Goal: Mobility will improve Outcome: [...] pain regimen, neuro changes monitored per orders AVING PLATE MAKER * Plan of Karolina Oliver RN - 05/07/2023 11:26 PM ENGRAVING PLATE MAKER Problem: Activity: Goal: Mobility will improve Outcome: [...] pain control, Q1H neuro and neruvasxular checks. AVING PLATE MAKER * Plan of Care - Pooja Cameron RN - 05/07/2023 4:29 PM ENGRAVING PLATE MAKER Problem: Activity: Goal: Mobility will improve Outcome: [...] bumex Summary: MAP>100, pain regimen adjusted, HDS AVING PLATE MAKER * Plan of Care - Pooja Cameron RN - 05/06/2023 4:42 PM ENGRAVING PLATE MAKER Problem: Activity: Goal: Mobility will improve Outcome: [...] plan vs CT, bumex given as ordered AVING PLATE MAKER * Medical Student - Quincy De La [...] pain, abdominal pain, and SOB. 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 No evidence of type A dissection so [...] injection 2 mg 2 mg intravenous Q6H [facility] carvediloL (COREG) tablet 50 mg 50 mg oral BID chlorhexidine (PERIDEX) 0.12 % solution 15 mL 15 mL swish & spit BID dilTIAZem (CARDIZEM) injection 15 mg 15 mg intravenous Q8H docusate (COLACE) 10 mg/mL oral liquid 100 mg 100 mg oral BID [Held by Provider] heparin 5,000 unit/mL injection 5,000 Units 5,000 Units subcutaneous Q8H [facility] lidocaine (ASPERCREME) 4 % patch 2 patch [...] (premix) 600 mg 600 mg intravenous Q12H [facility] lisinopriL (PRINIVIL,ZESTRIL) tablet 20 mg 20 mg oral Daily meropenem (MERREM) 1,000 mg/110 mL in sodium chloride 0.9% (premix) 1,000 mg 1,000 mg intravenous Q8H [facility] metoprolol (LOPRESSOR) tablet 100 mg 100 mg [...] flush 0.5-20 mL 0.5-20 mL intra-catheter Q8H [facility] Continuous Medications: Current Facility-Administered Medications Medication Dose [...] the interim, please contact neurology consults at [phone] (senior) and specify that this consult was staffed with Consult Team A. Quincy De La Cruz Medical Student Cosigned by Bridgett Gonzalez MD at 05/06/2023 10:50 PM ENGRAVING PLATE MAKER AVING PLATE MAKER AVING PLATE MAKER Associated attestation - Bridgett Gonzalez MD - 05/06/2023 10:50 PM ENGRAVING PLATE MAKER Attending Documentation: I have seen and examined the patient on 05/06/23. Please refer to resident note for formal recommendations. Bridgett Gonzalez MD, MSc * Plan of Care - Nella Griffin, BRIA - 05/05/2023 3:59 PM ENGRAVING PLATE MAKER Goals: Clinical Goals for the Shift: BP/HR [...] pain management regimen will improve Outcome: Progressing AVING PLATE MAKER * Plan of Care - Nikky Portillo [...] continue to monitor and evaluate the patient AVING PLATE MAKER * Plan of Care - Ana Yap [...] wean ventilator as tolerated, monitor labs, diurese AVING PLATE MAKER * Plan of Care - Mateo Maza [...] settings and continue to monitor the patient AVING PLATE MAKER * Plan of Care - Jill Henning RN - 05/03/2023 7:27 PM ENGRAVING PLATE MAKER Goals: Clinical Goals for the Shift: wean to extubate, BP and HR control Summary: Unable to extubate this shift, remains on esmolol for HR control, clevidipine drip for BP management. AVING PLATE MAKER * Plan of Care - Mateo Maza RRT - 05/03/2023 5:46 AM CST SAT/SBT WEAN SAFETY SCREEN for (SBT): FAIL - PEEP: PEEP > 63uqF8O. (Patient's PEEP = 12 cm H20). SBT OUTCOME: FAIL - Safety Screen Failure Excluded Patient From Spontaneous Breathing Trial PURSUE EXTUBATION: NO - Failed SAFETY Screen. PLAN: Due to Safety Screen failure, maintain current settings and continue to monitor the patient AVING PLATE MAKER * Plan of Care - Mateo Maza FAY - 05/02/2023 10:30 PM CST IMPRESSION: Patient had possible intermittent bronchospasms according to anesthesia. Patient would drop SPO2 while wheezing. Anesthesia said albuterol was very helpful . Plan: Q4 albuterol for intermittent bronchospasm. AVING PLATE MAKER * Perioperative Nursing Note - Radha Sparks RN - 05/02/2023 8:35 PM ENGRAVING PLATE MAKER 2033 Patient began coughing, right nare started bleeding. ENT called back to room. 2044 Teagan Kwong, fellow back to room. Patient suctioned and floseal placed inside nose. 2049 1mL air removed from TR Band, 4mL total left in band at this time. AVING PLATE MAKER * Perioperative Nursing Note - Radha Sparks RN - 05/02/2023 8:30 PM ENGRAVING PLATE MAKER 2019 intraoperative note: ENT fellow in to see patient for left nasal bleeding. Silver nitrate stick used on anterior active oozing and nare was packed with gelfoam and surgicel. 2029 1mL air removed from TR Band, total of 5mL air at this time. AVING PLATE MAKER * Perioperative Nursing Note - Radha Sparks RN - 05/02/2023 8:10 PM ENGRAVING PLATE MAKER 2009 intraoperative note: 1mL air removed from TR Band, total of 6 remaining. AVING PLATE MAKER * Perioperative Nursing Note - Radha Sparks RN - 05/02/2023 7:39 PM ENGRAVING PLATE MAKER 1908 Intraoperative note: TR Band placed left radial per Dr. Herrera. Total of 8mL air placed in band. 0: 1mL air removed from band, total air remaining 7mL. AVING PLATE MAKER * Op Note - Faustino Herrera MD - 05/02/2023 5:45 PM CST SURGEON Faustino Herrera MD FIELD CANE SCALER Ann Goldstein MD ANESTHESIA General. PREOPERATIVE DIAGNOSIS [...] Repair of thoracic aortic dissection with a [place] thoracic branched endograft and left subclavian stent [...] of the ultrasound was [facility]. Left common femoral artery access was obtained.The needle was seen entering the artery and flow in the artery was noted. Two proglides were placed in the pre-close technique. The patient was systemically anticoagulated. We percutaneously accessed the left radial artery under real-time ultrasound guidance, and advanced a wire and a 4 Colombian catheter into the aortic arch. Guidewires were passed to the ascending aorta and catheters advanced over the guidewires into the aorta from the femoral level and we advanced the intravascular ultrasound over thisto confirm that we were in the true lumen. We then sequentially dilated and advanced a 22 [place]ian [place] DrySeal into the proximal descending aorta. We then advanced a snare from the DrySeal, and snareda jag wire which had been advanced from the left radial approach. This was then externalized both the left radial and left femoral approach. We then advanced a 31 mm [place] thoracic branched endograft after cannulating both hypo tube as well as the main lumen. This was advanced into the aortic arch. D iagnostic ascending and aortic arch angiography were performed to delineate the anatomy, and the positions were noted. We then deployed this in zone 2, and did not balloon mold this given the dissection. We used the 4 Colombian sheath to perform a diagnostic angiogram of [...] I was present for the entire procedure HYDRAULIC ENGINEER MEASURES The patient received 2 g of Ancef within 60 minutes of procedure time. We utilized approximately 39cc of Optiray contrast and fluoroscopy time was 14.4 minutes (1359 mGy). . AVING PLATE MAKER * Brief Op Note - Rosey Fine MD - 05/02/2023 5:45 PM ENGRAVING PLATE MAKER Operative Progress Note Surgical Team: Surgeon(s) and Role: * Faustino Herrera MD - Primary * Brynn Lazo MD - Resident - Assisting * Rosey Fine MD - Fellow * Ann Goldstein MD - Fellow Anesthesiologist: Ney Alex MD; Dalton Locke MD BOOK CLEANER: Heber Fernández CRNA; Jh Onofre CRNA Nutrition Program Instructor: Emeka Barrow MD Gang Rider: Radha Grullon RN Gang Rider Relief: Jill Mace RN; Radha Sparks RN Scrub Relief: Vivian Mcgregor RN Scrub: Nilson Wilson ST Gang Rider Second: Natty Parker RN FLOAT: Essie Velazquez ST CV Roller Setter: Aman Frederick, DATE OF SURGERY : 05/02/2023 Preoperative Diagnosis: Pre-op Diagnosis * 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 RENA at end of case showed no abnormalities of the visualized ascending aorta. Estimated Blood Loss: 10 mL Intraoperative Fluids: 1L Specimens: No specimen collected in procedure Implants: Implant Name Type Inv. Item Serial No. Sock Mender Lot No. LRB No. Used Action [employer]LEY [employer] CLSR PERCLOSE PROSTYLE SUT-MEDIATD CLOSURE-REPAIR SYS 13004-07 - [id number] Closure Device [employer] CLSR PERCLOSE PROSTYLE SUT-MEDIATD CLOSURE-REPAIR SYS 22512-67 [employer] [id number] Left 3 Implanted [employer] Stent Graft Aortic Covered Tag [id number] Eptfe Nitinol [id number] - [id number] - [id number] Graft [employer] Stent Graft Aortic Covered Tag [id number] Eptfe Nitinol [id number] [employer] N/A 1 Implanted [employer] Stent Graft Thoracic Side Branch Tag [id number] Eptfe Nitinol [id number] - [id number] - [id number] Stent [employer] Stent Graft Thoracic Side Branch [id number] Eptfe Nitinol [id number] [employer] Left 1 Implanted Blood/Blood Products Transfused: None Complications: None Condition on Discharge from the operating room was stable. Palpable DPs and PTs bilaterally. Rosey Fine MD Date: 05/02/2023 Time: 7:51 PM Cosigned by Faustino Herrera MD at 05/03/2023 8:06 AM ENGRAVING PLATE MAKER AVING PLATE MAKER AVING PLATE MAKER * Assessment & Plan Note - Gladys Gallagher NP - 05/02/2023 2:02 PM ENGRAVING PLATE MAKER Associated Problem(s): Dissection of aorta, unspecified portion of aorta (HCC) 32y/o male with uncontrolled HTN who presented to an OSH ER with acute onset shortness of breath, chest pain and back pain. 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 He was transferred to [facility] for further evaluation and treatment. Here, [...] All feel these findings not to be automobile rental representative of a type a dissection, therefore [...] findings of HFrEF with LVEF of 41%. AVING PLATE MAKER * Plan of Care - Nicole Bergman [...] Goal: Pain level will decrease Outcome: Progressing AVING PLATE MAKER * Plan of Ann - Karolina Arana [...] Goal: Pain level will decrease Outcome: Progressing AVING PLATE MAKER * Plan of Ann - Taco Cancino [...] NPPV to help with his pressures. . AVING PLATE MAKER * Significant Event - Nicole Pearce MD [...] Simpson aware. Nicole Pearce MD CCM Fellow AVING PLATE MAKER * Initial Assessments - Yadira Portillo RN - 05/01/2023 2:11 PM CST CM Initial Assessment Interview Note Information Obtained From: Other (Specify) Name: Meron Blankenship, mother [phone] (05/01/23 1403) Admission Source: OSH, [facility]; otherwise from Home Impression: 32 y/o male with chief complaint of midsternal chest pain and cough, finding that he issuffering from a type B aortic dissection. PMH includes obesity and hyper tension. Plan Includes: Stabilize BP, pain management, surgical consult. Patient plans to return home at discharge Primary Source of Transportation: Does the patient need discharge transport arranged?: No (05/01/23 2095) Health Insurance Coverage: [facility] [employer] Managed Medicaid Prescription Coverage: Yes Pharmacy: [facility] in [place]. Mom unaware of which pharmacy takes his plan currently Primary Care Provider: Used to be seen at the [facility] but hasn't been in almost 2 years Prior to Admission: Functional Status: Independent with ADLs Primary Caregiver: Self Support System: Spouse/Significant Other, Parent (Meron Blankenship, mother [phone]. Solange Ireland, mother in law [phone]) Home Care Services: No Durable Medical Equipment: [...] Collaboration with patient, MD, direct care nurse, Director Of Development, and other members of the health care team to assure needed interventions completed. 2. Return patient to optimal level of self-care post discharge. 3. Writer Editor will follow for Discharge Planning - interventions [...] with the aftercare plan. Yadira Portillo RN AVING PLATE MAKER * Plan of Care - Shirley Horan [...] and HR control, pain control, monitor labs AVING PLATE MAKER * ED Procedure Note - Kameron Wadsworth MD - 05/01/2023 12:32 PM ENGRAVING PLATE MAKER Associated Order(s): Critical Care Procedure Critical Care [...] admitting team. Kameron Wadsworth MD 05/01/23 1232 AVING PLATE MAKER * ED Procedure Note - Nagi Landa MD - 05/01/2023 7:33 AM ENGRAVING PLATE MAKER Associated Order(s): Critical Care Procedure Critical Care [...] admitting team. Nagi Landa MD 05/01/23 2334 AVING PLATE MAKER * ED Re-evaluation Note - Kameron Wadsworth MD - 05/01/2023 7:28 AM ENGRAVING PLATE MAKER ED Re-evaluation Briefly, this is a 32-year-old [...] nicardipine dose. Kameron Wadsworth MD 05/01/23 0736 AVING PLATE MAKER * ED Re-evaluation Note - Faustino Elias MD - 05/01/2023 6:54 AM ENGRAVING PLATE MAKER ED Re-evaluation TRANSITION OF CARE: I, Faustino [...] Pre-Arrival Note The patient is coming from [facility] accepted by Dr Granados patient has [...] present Faustino Elias MD Resident 05/01/23 1116 AVING PLATE MAKER * ED Procedure Note - Meron Monterroso MD - 05/01/2023 5:56 AM CSTAssociated Order(s): Arterial line Procedure Arterial line Date/Time: 05/01/2023 5:56 AM Performed by: Meron Monterroso MD Authorized by: Nagi Landa MD [place] Protocol: RN Notified of Procedure: yes Indications: [...] Nagi Landa MD at 05/02/2023 12:02 AM ENGRAVING PLATE MAKER AVING PLATE MAKER AVING PLATE MAKER Associated attestation - Nagi Landa MD - 05/02/2023 12:02 AM ENGRAVING PLATE MAKER I was present for the grande portions [...] Nagi Landa MD at 05/02/2023 12:02 AM ENGRAVING PLATE MAKER AVING PLATE MAKER AVING PLATE MAKER Associated attestation - Nagi Landa MD - 05/02/2023 12:02 AM ENGRAVING PLATE MAKER I have personally reviewed the tracing and the resident's interpretation. I agree with the findings. * ED Pre-Arrival Note - Gracie Cee RN - 05/01/2023 4:47 AM CST Pre-Arrival Note The patient is coming from [facility] accepted by Dr Granados patient has a Type B dissection . The patients report called to Dr Cisse . The patient has had NitroDrip started as well as Labetalol Drip Gracie Cee RN AVING PLATE MAKER documented in this encounter Plan of Treatment Pending Results Name Type Priority Associated Diagnoses Date /Time Type and screen Lab Timed 4:10 AM ENGRAVING PLATE MAKER Lactate, whole blood Lab Timed 07/2022 5:10 PM ENGRAVING PLATE MAKER TSH reflex to free T4 Lab Routine 09/2022 12:10 AM ENGRAVING PLATE MAKER Hepatic function panel Lab Routine 12:37 AM ENGRAVING PLATE MAKER Scheduled Orders Name Type Priority Associated Diagnoses [...] ABDOMEN PELVIS Pending Discharge 05/16/2023 10:28 AM ENGRAVING PLATE MAKER EGFR Routine 05/16/2023 4:03 AM ENGRAVING PLATE MAKER CBC WITHOUT DIFFERENTIAL Routine 05/16/2023 4:03 AM ENGRAVING PLATE MAKER PHOSPHORUS Routine 05/16/2023 4:03 AM ENGRAVING PLATE MAKER MAGNESIUM Routine 05/16/2023 4:03 AM ENGRAVING PLATE MAKER BASIC METABOLIC PANEL Routine 05/16/2023 4:03 AM ENGRAVING PLATE MAKER TYPE AND SCREEN Routine 05/15/2023 5:26 AM ENGRAVING PLATE MAKER CBC WITHOUT DIFFERENTIAL STAT 05/15/2023 5:12 AM ENGRAVING PLATE MAKER EGFR Routine 05/15/2023 4:36 AM ENGRAVING PLATE MAKER CBC WITHOUT DIFFERENTIAL Routine 05/15/2023 4:36 AM ENGRAVING PLATE MAKER PHOSPHORUS Routine 05/15/2023 4:36 AM ENGRAVING PLATE MAKER MAGNESIUM Routine 05/15/2023 4:36 AM ENGRAVING PLATE MAKER BASIC METABOLIC PANEL Routine 05/15/2023 4:36 AM ENGRAVING PLATE MAKER EGFR Routine 05/14/2023 6:01 AM ENGRAVING PLATE MAKER CBC WITHOUT DIFFERENTIAL Routine 05/14/2023 6:01 AM ENGRAVING PLATE MAKER PHOSPHORUS Routine 05/14/2023 6:01 AM ENGRAVING PLATE MAKER MAGNESIUM Routine 05/14/2023 6:01 AM ENGRAVING PLATE MAKER BASIC METABOLIC PANEL Routine 05/14/2023 6:01 AM ENGRAVING PLATE MAKER XR CHEST 1 VIEW IP Routine 05/13/2023 7:10 PM ENGRAVING PLATE MAKER CRITICAL CARE Routine 05/13/2023 12:56 PM ENGRAVING PLATE MAKER Dissection of thoracoabdominal aorta (CMS/HCC) (HCC) EGFR Routine 05/13/2023 12:10 AM ENGRAVING PLATE MAKER APTT Routine 05/13/2023 12:10 AM ENGRAVING PLATE MAKER PROTIME-INR Routine 05/13/2023 12:10 AM ENGRAVING PLATE MAKER CBC WITHOUT DIFFERENTIAL Routine 05/13/2023 12:10 AM ENGRAVING PLATE MAKER TYPE AND SCREEN Timed 05/13/2023 12:10 AM ENGRAVING PLATE MAKER PHOSPHORUS Routine 05/13/2023 12:10 AM ENGRAVING PLATE MAKER MAGNESIUM Routine 05/13/2023 12:10 AM ENGRAVING PLATE MAKER BASIC METABOLIC PANEL Routine 05/13/2023 12:10 AM ENGRAVING PLATE MAKER XR CHEST 1 VIEW IP Routine 05/12/2023 7:27 PM ENGRAVING PLATE MAKER CRITICAL CARE Routine 05/12/2023 4:16 PM ENGRAVING PLATE MAKER Dissection of thoracoabdominal aorta (CMS/HCC) (HCC) CBC WITHOUT DIFFERENTIAL Routine 05/12/2023 1:58 PM ENGRAVING PLATE MAKER TRANSFUSE RED BLOOD CELLS Timed 05/12/2023 8:58 AM ENGRAVING PLATE MAKER POCT GLUCOSE DEVICE Routine 05/12/2023 8 :50 AM ENGRAVING PLATE MAKER PREPARE RBC Timed 05/12/2023 7:40 AM ENGRAVING PLATE MAKER POTASSIUM, WHOLE BLOOD STAT 05/12/2023 12:12 AM ENGRAVING PLATE MAKER EGFR Routine 05/12/2023 12:12 AM ENGRAVING PLATE MAKER APTT Routine 05/12/2023 12:12 AM ENGRAVING PLATE MAKER PROTIME-INR Routine 05/12/2023 12:12 AM ENGRAVING PLATE MAKER CBC WITHOUT DIFFERENTIAL Routine 05/12/2023 12:12 AM ENGRAVING PLATE MAKER TRIGLYCERIDES Timed 05/12/2023 12:12 AM ENGRAVING PLATE MAKER PHOSPHORUS Routine 05/12/2023 12:12 AM ENGRAVING PLATE MAKER MAGNESIUM Routine 05/12/2023 12:12 AM ENGRAVING PLATE MAKER BASIC METABOLIC PANEL Routine 05/12/2023 12:12 AM ENGRAVING PLATE MAKER XR CHEST 1 VIEW IP Routine 2023 8:01 PM ENGRAVING PLATE MAKER CRITICAL CARE Routine 2023 4:16 PM ENGRAVING PLATE MAKER Dissection of thoracoabdominal aorta (CMS/HCC) (HCC) CTA CHEST ABDOMEN PELVIS ED Urgent/IP Urgent 2023 11:16 AM ENGRAVING PLATE MAKER POTASSIUM, WHOLE BLOOD STAT 2023 12:14 AM ENGRAVING PLATE MAKER EGFR Routine 2023 12:14 AM ENGRAVING PLATE MAKER APTT Routine 2023 12:14 AM ENGRAVING PLATE MAKER PROTIME-INR Routine 2023 12:14 AM ENGRAVING PLATE MAKER CBC WITHOUT DIFFERENTIAL Routine 2023 12:14 AM ENGRAVING PLATE MAKER PHOSPHORUS Routine 2023 12:14 AM ENGRAVING PLATE MAKER MAGNESIUM Routine 2023 12:14 AM ENGRAVING PLATE MAKER BLOOD GAS, ARTERIAL STAT 2023 12:14 AM ENGRAVING PLATE MAKER BASIC METABOLIC PANEL Routine 2023 12:14 AM ENGRAVING PLATE MAKER XR CHEST 1 VIEW IP Routine 05/10/2023 9:50 PM ENGRAVING PLATE MAKER ECG 12-LEAD STAT 05/10/2023 6:19 PM ENGRAVING PLATE MAKER LIDOCAINE LEVEL Routine 05/10/2023 4:59 PM ENGRAVING PLATE MAKER CRITICAL CARE Routine 05/10/2023 4:14 PM ENGRAVING PLATE MAKER Dissection of thoracoabdominal aorta (CMS/HCC) (HCC) BLOOD CULTURE Routine 05/10/2023 12:57 PM ENGRAVING PLATE MAKER BLOOD CULTURE Routine 05/10/2023 12:57 PM ENGRAVING PLATE MAKER LACTATE Routine 05/10/2023 12:37 AM ENGRAVING PLATE MAKER POTASSIUM, WHOLE BLOOD STAT 05/10/2023 12:37 AM ENGRAVING PLATE MAKER EGFR Routine 05/10/2023 12:37 AM ENGRAVING PLATE MAKER APTT Routine 05/10/2023 12:37 AM ENGRAVING PLATE MAKER PROTIME-INR Routine 05/10/2023 12:37 AM ENGRAVING PLATE MAKER CBC WITHOUT DIFFERENTIAL Routine 05/10/2023 12:37 AM ENGRAVING PLATE MAKER TYPE AND SCREEN Timed 05/10/2023 12:37 AM ENGRAVING PLATE MAKER PHOSPHORUS Routine 05/10/2023 12:37 AM ENGRAVING PLATE MAKER MAGNESIUM Routine 05/10/2023 12:37 AM ENGRAVING PLATE MAKER BLOOD GAS, ARTERIAL STAT 05/10/2023 12:37 AM ENGRAVING PLATE MAKER HEPATIC FUNCTION PANEL Routine 05/10/2023 12:37 AM ENGRAVING PLATE MAKER BASIC METABOLIC PANEL Routine 05/10/2023 12:37 AM ENGRAVING PLATE MAKER POCT GLUCOSE DEVICE Routine 05/10/2023 12:16 AM ENGRAVING PLATE MAKER OXYHEMOGLOBIN, CENTRAL VENOUS Routine 05/09/2023 11:35 PM ENGRAVING PLATE MAKER XR CHEST 1 VIEW IP Routine 05/09/2023 9:29 PM ENGRAVING PLATE MAKER POTASSIUM, WHOLE BLOOD STAT 05/09/2023 8:16 PM ENGRAVING PLATE MAKER LIDOCAINE LEVEL Routine 05/09/2023 6:20 PM ENGRAVING PLATE MAKER CRITICAL CARE Routine 05/09/2023 3:58 PM ENGRAVING PLATE MAKER Dissection of thoracoabdominal aorta (CMS/HCC) (HCC) POTASSIUM, WHOLE BLOOD STAT 05/09/2023 12:54 PM ENGRAVING PLATE MAKER LIPASE Routine 05/09/2023 12:54 PM ENGRAVING PLATE MAKER HEPATIC FUNCTION PANEL Routine 05/09/2023 12:54 PM ENGRAVING PLATE MAKER US VEIN DUPLEX LOWER EXTREMITY BILATERAL COMPLETE ED Urgent/IP Urgent 05/09/2023 11:23 AM ENGRAVING PLATE MAKER ECG 12-LEAD Routine 05/09/2023 9:22 AM ENGRAVING PLATE MAKER POTASSIUM, WHOLE BLOOD STAT 05/09/2023 8:04 AM ENGRAVING PLATE MAKER POC BLOOD GAS AND CHEMISTRIES, ARTERIAL Routine 05/09/2023 6:22 AM ENGRAVING PLATE MAKER POTASSIUM, WHOLE BLOOD STAT 05/09/2023 12:36 AM ENGRAVING PLATE MAKER BLOOD GAS, ARTERIAL STAT 05/09/2023 12:36 AM ENGRAVING PLATE MAKER EGFR Routine 05/09/2023 12:35 AM ENGRAVING PLATE MAKER APTT Routine 05/09/2023 12:35 AM ENGRAVING PLATE MAKER PROTIME-INR Routine 05/09/2023 12:35 AM ENGRAVING PLATE MAKER CBC WITHOUT DIFFERENTIAL Routine 05/09/2023 12:35 AM ENGRAVING PLATE MAKER TRIGLYCERIDES Timed 05/09/2023 12:35 AM ENGRAVING PLATE MAKER PHOSPHORUS Routine 05/09/2023 12:35 AM ENGRAVING PLATE MAKER MAGNESIUM Routine 05/09/2023 12:35 AM ENGRAVING PLATE MAKER BASIC METABOLIC PANEL Routine 05/09/2023 12:35 AM ENGRAVING PLATE MAKER XR CHEST 1 VIEW IP Routine 05/08/2023 7:59 PM ENGRAVING PLATE MAKER POC BLOOD GAS AND CHEMISTRIES, ARTERIAL Routine 05/08/2023 7:25 PM ENGRAVING PLATE MAKER POTASSIUM, WHOLE BLOOD STAT 05/08/2023 5:39 PM ENGRAVING PLATE MAKER LIDOCAINE LEVEL Routine 05/08/2023 5:39 PM ENGRAVING PLATE MAKER CRITICAL CARE Routine 05/08/2023 2:53 PM ENGRAVING PLATE MAKER Dissection of thoracoabdominal aorta (CMS/HCC) (HCC) POTASSIUM, WHOLE BLOOD STAT 05/08/2023 11:44 AM ENGRAVING PLATE MAKER POTASSIUM, WHOLE BLOOD STAT 05/08/2023 8:02 AM ENGRAVING PLATE MAKER BLOOD GAS, ARTERIAL STAT 05/08/2023 8 :02 AM ENGRAVING PLATE MAKER POTASSIUM, WHOLE BLOOD STAT 05/08/2023 1:08 AM ENGRAVING PLATE MAKER EGFR Routine 05/08/2023 1:08 AM ENGRAVING PLATE MAKER APTT Routine 05/08/2023 1:08 AM ENGRAVING PLATE MAKER PROTIME-INR Routine 05/08/2023 1:08 AM ENGRAVING PLATE MAKER CBC WITHOUT DIFFERENTIAL Routine 05/08/2023 1:08 AM ENGRAVING PLATE MAKER PHOSPHORUS Routine 05/08/2023 1:08 AM ENGRAVING PLATE MAKER MAGNESIUM Routine 05/08/2023 1:08 AM ENGRAVING PLATE MAKER BLOOD GAS, ARTERIAL STAT 05/08/2023 1 :08 AM ENGRAVING PLATE MAKER BASIC METABOLIC PANEL Routine 05/08/2023 1:08 AM ENGRAVING PLATE MAKER POC BLOOD GAS AND CHEMISTRIES, ARTERIAL Routine 05/07/2023 8:40 PM ENGRAVING PLATE MAKER TROPONIN I HIGH-SENSITIVITY 2-HOUR Timed 05/07/2023 8:36 PM ENGRAVING PLATE MAKER XR CHEST 1 VIEW IP Routine 05/07/2023 8:26 PM ENGRAVING PLATE MAKER ECG 12-LEAD STAT 05/07/2023 6:46 PM ENGRAVING PLATE MAKER TROPONIN I HIGH-SENSITIVITY SERIES (BASELINE, 2HR, 4HR, 6HR) Routine 05/07/2023 6:15 PM ENGRAVING PLATE MAKER POTASSIUM, WHOLE BLOOD STAT 05/07/2023 5:57 PM ENGRAVING PLATE MAKER BLOOD GAS, ARTERIAL STAT 05/07/2023 5 :57 PM ENGRAVING PLATE MAKER XR CHEST 1 VIEW ED Urgent/IP Urgent 05/07/2023 4:07 PM ENGRAVING PLATE MAKER POC BLOOD GAS AND CHEMISTRIES, ARTERIAL Routine 05/07/2023 3:57 PM ENGRAVING PLATE MAKER CRITICAL CARE Routine 05/07/2023 2:55 PM ENGRAVING PLATE MAKER Dissection of thoracoabdominal aorta (CMS/HCC) (HCC) POTASSIUM, WHOLE BLOOD STAT 05/07/2023 2:42 PM ENGRAVING PLATE MAKER BLOOD GAS, ARTERIAL STAT 05/07/2023 2 :42 PM ENGRAVING PLATE MAKER [place] ARTL CATHJ/CANNULJ MNTR/TRANSFUSION SPX PRQ Routine 05/07/2023 1:42 PM ENGRAVING PLATE MAKER Dissection of thoracoabdominal aorta (CMS/HCC) (HCC) APTT STAT 05/07/2023 10:37 AM ENGRAVING PLATE MAKER PROTIME-INR STAT 05/07/2023 10:37 AM ENGRAVING PLATE MAKER BLOOD GAS, ARTERIAL STAT 05/07/2023 6 :13 AM ENGRAVING PLATE MAKER POTASSIUM, WHOLE BLOOD STAT 05/07/2023 5:56 AM ENGRAVING PLATE MAKER POTASSIUM, WHOLE BLOOD STAT 05/07/2023 3:58 AM ENGRAVING PLATE MAKER IL ARTL CATHJ/CANNULJ MNTR/TRANSFUSION SPX PRQ Routine 05/07/2023 2:50 AM ENGRAVING PLATE MAKER Dissection of aorta, unspecified portion of aorta (HCC) LACTATE Routine 05/07/2023 12:35 AM ENGRAVING PLATE MAKER POTASSIUM, WHOLE BLOOD STAT 05/07/2023 12:35 AM ENGRAVING PLATE MAKER EGFR Routine 05/07/2023 12:35 AM ENGRAVING PLATE MAKER CBC WITHOUT DIFFERENTIAL Routine 05/07/2023 12:35 AM ENGRAVING PLATE MAKER TYPE AND SCREEN Timed 05/07/2023 12:35 AM ENGRAVING PLATE MAKER TRIGLYCERIDES Routine 05/07/2023 12:35 AM ENGRAVING PLATE MAKER PHOSPHORUS Routine 05/07/2023 12:35 AM ENGRAVING PLATE MAKER MAGNESIUM Routine 05/07/2023 12:35 AM ENGRAVING PLATE MAKER BLOOD GAS, ARTERIAL STAT 05/07/2023 12:35 AM ENGRAVING PLATE MAKER BASIC METABOLIC PANEL Routine 05/07/2023 12:35 AM ENGRAVING PLATE MAKER MRI SPINE TOTAL COMPLETE WO CONTRAST ED Urgent/IP Urgent 05/07/2023 12:10 AM ENGRAVING PLATE MAKER XR CHEST 1 VIEW ED Urgent/IP Urgent 05/06/2023 10:08 PM ENGRAVING PLATE MAKER INTUBATION Routine 05/06/2023 9:36 PM ENGRAVING PLATE MAKER Dissection of aorta, unspecified portion of aorta (HCC) XR CHEST 1 VIEW IP Routine 05/06/2023 7:41 PM ENGRAVING PLATE MAKER POTASSIUM, WHOLE BLOOD STAT 05/06/2023 7:22 PM ENGRAVING PLATE MAKER BLOOD GAS, ARTERIAL STAT 05/06/2023 7 :22 PM ENGRAVING PLATE MAKER POTASSIUM, WHOLE BLOOD STAT 05/06/2023 4:35 PM ENGRAVING PLATE MAKER BLOOD GAS, ARTERIAL STAT 05/06/2023 4 :35 PM ENGRAVING PLATE MAKER POTASSIUM, WHOLE BLOOD STAT 05/06/2023 10:30 AM ENGRAVING PLATE MAKER BLOOD GAS, ARTERIAL STAT 05/06/2023 10:30 AM ENGRAVING PLATE MAKER POTASSIUM, WHOLE BLOOD STAT 05/06/2023 6:07 AM ENGRAVING PLATE MAKER POC BLOOD GAS AND CHEMISTRIES, ARTERIAL Routine 05/06/2023 1:32 AM ENGRAVING PLATE MAKER TROPONIN I HIGH-SENSITIVITY 6-HOUR Timed 05/06/2023 1:28 AM ENGRAVING PLATE MAKER CBC WITHOUT DIFFERENTIAL Routine 05/06/2023 1:28 AM ENGRAVING PLATE MAKER TRANSFUSE PLATELETS Timed 05/05/2023 11:38 PM ENGRAVING PLATE MAKER TRANSFUSE PLATELETS Timed 05/05/2023 11:29 PM ENGRAVING PLATE MAKER TROPONIN I HIGH-SENSITIVITY 2-HOUR Timed 05/05/2023 9:15 PM ENGRAVING PLATE MAKER POC BLOOD GAS AND CHEMISTRIES, ARTERIAL Routine 05/05/2023 9:15 PM ENGRAVING PLATE MAKER TRANSFUSE RED BLOOD CELLS Timed 05/05/2023 8:20 PM ENGRAVING PLATE MAKER PREPARE PLATELETS Timed 05/05/2023 8:1 7 PM ENGRAVING PLATE MAKER APTT STAT 05/05/2023 8:14 PM ENGRAVING PLATE MAKER PROTIME-INR STAT 05/05/2023 8:14 PM ENGRAVING PLATE MAKER PREPARE RBC Timed 05/05/2023 7:56 PM ENGRAVING PLATE MAKER XR CHEST 1 VIEW IP Routine 05/05/2023 7:43 PM ENGRAVING PLATE MAKER TROPONIN I HIGH-SENSITIVITY SERIES (BASELINE, 2HR, 4HR, 6HR) Routine 05/05/2023 7:22 PM ENGRAVING PLATE MAKER POC BLOOD GAS AND CHEMISTRIES, ARTERIAL Routine 05/05/2023 7:22 PM ENGRAVING PLATE MAKER ECG 12-LEAD STAT 05/05/2023 6:56 PM ENGRAVING PLATE MAKER CTA CHEST ABDOMEN PELVIS Critical/Life-T hreatening 05/05/2023 6:28 PM ENGRAVING PLATE MAKER TRANSTHORACIC ECHO (TTE) LIMITED/FOLLOW UP WO DOPPLER/CF WO CONTRAST W BUBBLE Routine 05/05/2023 4:50 PM ENGRAVING PLATE MAKER CRITICAL CARE Routine 05/05/2023 1:24 PM ENGRAVING PLATE MAKER Hypertension, unspecified type PNEUMONIA PCR Routine 05/05/2023 11:27 AM ENGRAVING PLATE MAKER PNEUMONIA PCR WITH AEROBIC CULTURE AND GRAM STAIN Routine 05/05/2023 11:27 AM ENGRAVING PLATE MAKER EXTUBATION Routine 05/05/2023 10:41 AM ENGRAVING PLATE MAKER IL DIAGNOSTIC LUMBAR SPINAL PUNCTURE Routine 05/05/2023 10:05 AM ENGRAVING PLATE MAKER Dissection of aorta, unspecified portion of aorta (HCC) LACTATE Routine 05/05/2023 8:21 AM ENGRAVING PLATE MAKER BLOOD GAS, ARTERIAL STAT 05/05/2023 8 :21 AM ENGRAVING PLATE MAKER POTASSIUM, WHOLE BLOOD STAT 05/05/2023 4:51 AM ENGRAVING PLATE MAKER BLOOD GAS, ARTERIAL STAT 05/05/2023 4 :51 AM ENGRAVING PLATE MAKER EGFR Routine 05/05/2023 12:12 AM ENGRAVING PLATE MAKER CBC WITHOUT DIFFERENTIAL Routine 05/05/2023 12:12 AM ENGRAVING PLATE MAKER PHOSPHORUS Routine 05/05/2023 12:12 AM ENGRAVING PLATE MAKER MAGNESIUM Routine 05/05/2023 12:12 AM ENGRAVING PLATE MAKER BASIC METABOLIC PANEL Routine 05/05/2023 12:12 AM ENGRAVING PLATE MAKER POTASSIUM, WHOLE BLOOD STAT 05/04/2023 10:30 PM ENGRAVING PLATE MAKER TRIGLYCERIDES Timed 05/04/2023 10:30 PM ENGRAVING PLATE [employer]KER BLOOD GAS, ARTERIAL STAT 05/04/2023 10:30 PM ENGRAVING PLATE MAKER XR CHEST 1 VIEW IP Routine 05/04/2023 8:58 PM ENGRAVING PLATE [employer]KER POTASSIUM, WHOLE BLOOD STAT 05/04/2023 6:31 PM ENGRAVING PLATE [employer]KER CRITICAL CARE Routine 05/04/2023 3:00 PM ENGRAVING [employer]ATE [employer]ER Hypertension, unspecified type POCT GLUCOSE DEVICE Routine 05/04/2023 1 :42 PM ENGRAVING PLATE MAKER RT COMMUNICATION Routine 05/04/2023 1:10 PM ENGRAVING PLATE MAKER POTASSIUM, WHOLE BLOOD STAT 05/04/2023 11:27 AM ENGRAVING PLATE MAKER TYPE AND SCREEN Timed 05/04/2023 11:23 AM ENGRAVING PLATE MAKER BLOOD GAS, ARTERIAL STAT 05/04/2023 11:23 AM ENGRAVING PLATE MAKER POCT GLUCOSE DEVICE Routine 05/04/2023 7 :48 AM ENGRAVING PLATE MAKER POC BLOOD GAS AND CHEMISTRIES, ARTERIAL Routine 05/04/2023 3:03 AM ENGRAVING PLATE MAKER URINALYSIS AND REFLEX TO MICROSCOPIC Routine 05/04/2023 2:14 AM ENGRAVING PLATE MAKER URINALYSIS, MICROSCOPIC ONLY Routine 05/04/2023 2:14 AM ENGRAVING PLATE [employer]KER EGFR Routine 05/04/2023 1:20 AM ENGRAVING PLATE [employer]KER BLOOD CULTURE Routine 05/04/2023 1:20 AM ENGRAVING PLATE MAKER BLOOD CULTURE Routine 05/04/2023 1:20 AM ENGRAVING PLATE MAKER CBC WITHOUT DIFFERENTIAL Routine 05/04/2023 1:20 AM ENGRAVING PLATE MAKER TRIGLYCERIDES Routine 05/04/2023 1:20 AM ENGRAVING PLATE MAKER PHOSPHORUS Routine 05/04/2023 1:20 AM ENGRAVING PLATE MAKER MAGNESIUM Routine 05/04/2023 1:20 AM ENGRAVING PLATE MAKER BLOOD GAS, ARTERIAL STAT 05/04/2023 1 :20 AM ENGRAVING PLATE MAKER BASIC METABOLIC PANEL Routine 05/04/2023 1:20 AM ENGRAVING PLATE MAKER XR CHEST 1 VIEW IP Routine 05/03/2023 10:05 PM ENGRAVING PLATE MAKER IL INSJ NON-TUNNELED CENTRAL VENOUS CATH AGE 7 YR/> Routine 05/03/2023 9:57 PM ENGRAVING PLATE MAKER Dissection of aorta, unspecified portion of aorta (HCC) BLOOD GAS, ARTERIAL STAT 05/03/2023 8 :32 PM ENGRAVING PLATE MAKER POTASSIUM, WHOLE BLOOD STAT 05/03/2023 5:50 PM ENGRAVING PLATE MAKER BLOOD GAS, ARTERIAL STAT 05/03/2023 5 :50 PM ENGRAVING PLATE MAKER XR CHEST 1 VIEW IP Routine 05/03/2023 2:54 PM ENGRAVING PLATE MAKER CRITICAL CARE Routine 05/03/2023 2:29 PM ENGRAVING PLATE MAKER Hypertension, unspecified type POC BLOOD GAS AND CHEMISTRIES, ARTERIAL Routine 05/03/2023 2:09 PM ENGRAVING PLATE MAKER TRIGLYCERIDES Routine 05/03/2023 1:12 PM ENGRAVING PLATE MAKER POC BLOOD GAS AND CHEMISTRIES, ARTERIAL Routine 05/03/2023 11:07 AM ENGRAVING PLATE MAKER POC BLOOD GAS AND CHEMISTRIES, ARTERIAL Routine 05/03/2023 3:28 AM ENGRAVING PLATE MAKER LACTATE Routine 05/03/2023 2:08 AM ENGRAVING PLATE MAKER BLOOD GAS, ARTERIAL Routine 05/03/2023 2 :08 AM ENGRAVING PLATE MAKER LACTATE STAT 05/03/2023 12:10 AM ENGRAVING PLATE MAKER EGFR Routine 05/03/2023 12:10 AM ENGRAVING PLATE MAKER THYROID FUNCTION CASCADE Routine 05/03/2023 12:10 AM ENGRAVING PLATE MAKER FIBRINOGEN Routine 05/03/2023 12:10 AM ENGRAVING PLATE MAKER CBC WITHOUT DIFFERENTIAL Routine 05/03/2023 12:10 AM ENGRAVING PLATE MAKER PHOSPHORUS Routine 05/03/2023 12:10 AM ENGRAVING PLATE MAKER MAGNESIUM Routine 05/03/2023 12:10 AM ENGRAVING PLATE MAKER BLOOD GAS, ARTERIAL STAT 05/03/2023 12:10 AM ENGRAVING PLATE MAKER BASIC METABOLIC PANEL Routine 05/03/2023 12:10 AM ENGRAVING PLATE MAKER POC BLOOD GAS AND CHEMISTRIES, ARTERIAL Routine 05/02/2023 11:16 PM ENGRAVING PLATE MAKER XR CHEST 1 VIEW ED Urgent/IP Urgent 05/02/2023 10:54 PM ENGRAVING PLATE MAKER POC BLOOD GAS AND CHEMISTRIES, ARTERIAL Routine 05/02/2023 10:13 PM ENGRAVING PLATE MAKER EGFR STAT 05/02/2023 9:55 PM ENGRAVING PLATE MAKER CALCIUM, IONIZED STAT 05/02/2023 9:55 PM ENGRAVING PLATE MAKER PHOSPHORUS STAT 05/02/2023 9:55 PM ENGRAVING PLATE MAKER MAGNESIUM STAT 05/02/2023 9:55 PM ENGRAVING PLATE MAKER BASIC METABOLIC PANEL STAT 05/02/2023 9:55 PM ENGRAVING PLATE MAKER CBC WITHOUT DIFFERENTIAL STAT 05/02/2023 9:33 PM ENGRAVING PLATE MAKER POC BLOOD GAS AND CHEMISTRIES, ARTERIAL Routine 05/02/2023 9:29 PM ENGRAVING PLATE MAKER CV HYBRID ROOM (DEFAULT ORDERABLE) Routine 05/02/2023 9:20 PM ENGRAVING PLATE MAKER Dissection of thoracoabdominal aorta (CMS/HCC) (HCC) POCT ACTIVATED CLOTTING TIME, LOW RANGE Routine 05/02/2023 7:26 PM ENGRAVING PLATE MAKER POCT ACTIVATED CLOTTING TIME, LOW RANGE Routine 05/02/2023 7:01 PM ENGRAVING PLATE MAKER POCT ACTIVATED CLOTTING TIME, LOW RANGE Routine 05/02/2023 6:27 PM ENGRAVING PLATE MAKER POCT ACTIVATED CLOTTING TIME, LOW RANGE Routine 05/02/2023 6:02 PM ENGRAVING PLATE MAKER CRITICAL CARE Routine 05/02/2023 5:26 PM ENGRAVING PLATE MAKER Dissection of aorta, unspecified portion of aorta (HCC) CAUTERIZATION NASAL SEPTUM 05/02/2023 4:36 PM ENGRAVING PLATE MAKER Dissection of thoracoabdominal aorta (CMS/HCC) (HCC) PLACEMENT STENT - SUBCLAVIAN ARTERY - HYBRID ROOM 05/02/2023 4:36 PM ENGRAVING PLATE MAKER Dissection of thoracoabdominal aorta (CMS/HCC) (HCC) LACTATE Timed 05/02/2023 4:00 PM ENGRAVING PLATE MAKER EGFR Timed 05/02/2023 4:00 PM ENGRAVING PLATE MAKER CBC WITHOUT DIFFERENTIAL Timed 05/02/2023 4:00 PM ENGRAVING PLATE MAKER COMPREHENSIVE METABOLIC PANEL Timed 05/02/2023 4:00 PM ENGRAVING PLATE MAKER TRANSTHORACIC ECHO (TTE) COMPLETE W DOPPLER/CF W CONTRAST STAT 05/02/2023 12:40 PM ENGRAVING PLATE MAKER PREPARE PLATELETS Timed 05/02/2023 10:34 AM ENGRAVING PLATE MAKER PREPARE RBC Timed 05/02/2023 10:33 AM ENGRAVING PLATE MAKER LACTATE Timed 05/02/2023 10:12 AM ENGRAVING PLATE MAKER EGFR Timed 05/02/2023 10:12 AM ENGRAVING PLATE MAKER CBC WITHOUT DIFFERENTIAL Timed 05/02/2023 10:12 AM ENGRAVING PLATE MAKER COMPREHENSIVE METABOLIC PANEL Timed 05/02/2023 10:12 AM ENGRAVING PLATE MAKER CTA CHEST ABDOMINAL AORTA AND BILATERAL ILIOFEMORAL Critical/Life-T hreatening 05/02/2023 9:47 AM ENGRAVING PLATE MAKER POCT GLUCOSE DEVICE Routine 05/02/2023 4 :16 AM ENGRAVING PLATE MAKER LACTATE Timed 05/02/2023 4:10 AM ENGRAVING PLATE MAKER EGFR Timed 05/02/2023 4:10 AM ENGRAVING PLATE MAKER CALCIUM, IONIZED Routine 05/02/2023 4:10 AM ENGRAVING PLATE MAKER PROTIME-INR Routine 05/02/2023 4:10 AM ENGRAVING PLATE MAKER CBC WITHOUT DIFFERENTIAL Timed 05/02/2023 4:10 AM ENGRAVING PLATE MAKER COMPREHENSIVE METABOLIC PANEL Timed 05/02/2023 4:10 AM ENGRAVING PLATE MAKER LACTATE Timed 05/01/2023 11:52 PM ENGRAVING PLATE MAKER EGFR Timed 05/01/2023 11:52 PM ENGRAVING PLATE MAKER CBC WITHOUT DIFFERENTIAL Timed 05/01/2023 11:52 PM ENGRAVING PLATE MAKER COMPREHENSIVE METABOLIC PANEL Timed 05/01/2023 11:52 PM ENGRAVING PLATE MAKER POC BLOOD GAS AND CHEMISTRIES, ARTERIAL Routine 05/01/2023 11:03 PM ENGRAVING PLATE MAKER POTASSIUM, WHOLE BLOOD Routine 05/01/2023 7:28 PM ENGRAVING PLATE MAKER HEPATIC FUNCTION PANEL Routine 05/01/2023 7:28 PM ENGRAVING PLATE MAKER POCT GLUCOSE DEVICE Routine 05/01/2023 7 :27 PM ENGRAVING PLATE MAKER XR CHEST 1 VIEW IP Routine 05/01/2023 6:41 PM ENGRAVING PLATE MAKER EGFR Timed 05/01/2023 5:50 PM ENGRAVING PLATE MAKER COMPREHENSIVE METABOLIC PANEL Timed 05/01/2023 5:50 PM ENGRAVING PLATE MAKER POCT GLUCOSE DEVICE Routine 05/01/2023 5 :10 PM ENGRAVING PLATE MAKER LACTATE, WHOLE BLOOD Timed 05/01/2023 5:10 PM ENGRAVING PLATE MAKER CBC WITHOUT DIFFERENTIAL Timed 05/01/2023 5:10 PM ENGRAVING PLATE MAKER SEPSIS LACTATE WITH REFLEX Timed 05/01/2023 1:18 PM ENGRAVING PLATE MAKER IL CRITICAL CARE ILL/INJURED PATIENT INIT 30-74 MIN Routine 05/01/2023 12:32 PM ENGRAVING PLATE MAKER TROPONIN I HIGH-SENSITIVITY Routine 05/01/2023 11:40 AM ENGRAVING PLATE MAKER POCT GLUCOSE DEVICE Routine 05/01/2023 11:40 AM ENGRAVING PLATE MAKER BLOOD GAS, ARTERIAL STAT 05/01/2023 11:40 AM ENGRAVING PLATE MAKER CREATINE KINASE (CK), TOTAL STAT 05/01/2023 11:40 AM ENGRAVING PLATE MAKER SEPSIS LACTATE WITH REFLEX Timed 05/01/2023 10:15 AM ENGRAVING PLATE MAKER LACTATE Timed 05/01/2023 10:15 AM ENGRAVING PLATE MAKER EGFR Timed 05/01/2023 10:15 AM ENGRAVING PLATE MAKER CBC WITHOUT DIFFERENTIAL Timed 05/01/2023 10:15 AM ENGRAVING PLATE MAKER COMPREHENSIVE METABOLIC PANEL Timed 05/01/2023 10:15 AM ENGRAVING PLATE MAKER SEPSIS LACTATE WITH REFLEX STAT 05/01/2023 8:13 AM ENGRAVING PLATE MAKER B CHECK SAMPLE STAT 05/01/2023 8:13 AM ENGRAVING PLATE MAKER TYPE AND SCREEN STAT 05/01/2023 7:52 AM ENGRAVING PLATE MAKER IL CRITICAL CARE ILL/INJURED PATIENT INIT 30-74 MIN Routine 05/01/2023 7:33 [address]ING [address] [address]ER CT BODY OUTSIDE CONSULT Routine 05/01/2023 6:16 AM ENGRAVING PLATE MAKER XR TRANSFER OF OUTSIDE FILMS Routine 05/01/2023 6:05 [address]ING PLATE MAKER CT BODY OUTSIDE CONSULT Routine 05/01/2023 6:01 AM ENGRAVING PLATE MAKER IL ARTL CATHJ/CANNULJ MNTR/TRANSFUSION SPX PRQ Routine 05/01/2023 5:56 AM ENGRAVING PLATE MAKER FENTANYL CONFIRMATION, MS URINE STAT 05/01/2023 5:19 AM ENGRAVING PLATE MAKER DRUGS OF ABUSE SCREEN, URINE WITH REFLEX CONFIRMATION STAT 05/01/2023 5:19 AM ENGRAVING PLATE MAKER EGFR STAT 05/01/2023 5:19 AM ENGRAVING PLATE MAKER DIFFERENTIAL AUTO STAT 05/01/2023 5:1 9 AM ENGRAVING PLATE MAKER URINALYSIS AND REFLEX TO MICROSCOPIC AND CULTURE STAT 05/01/2023 5:19 AM ENGRAVING PLATE MAKER CBC WITH AUTO DIFFERENTIAL STAT 05/01/2023 5:19 AM ENGRAVING PLATE MAKER URINALYSIS, MICROSCOPIC ONLY STAT 05/01/2023 5:19 AM ENGRAVING PLATE MAKER APTT Routine 05/01/2023 5:19 AM ENGRAVING PLATE MAKER PROTIME-INR STAT 05/01/2023 5:19 AM ENGRAVING PLATE MAKER COMPREHENSIVE METABOLIC PANEL STAT 05/01/2023 5:19 AM ENGRAVING PLATE MAKER ECG 12-LEAD Routine 05/01/2023 5:15 AM ENGRAVING PLATE MAKER XR CHEST 1 VIEW ED 05/01/2023 5:14 AM ENGRAVING PLATE MAKER documented in this encounter Results * CTA Chest Abdomen Pelvis (05/16/2023 10:28 AM ENGRAVING PLATE MAKER) Anatomical Region Laterality Modality Body N/A Computed Tomogra phy 05/16/2023 1:06 PM ENGRAVING PLATE MAKER Impressions 05/16/2023 4:50 PM ENGRAVING PLATE MAKER 1. Redemonstrated findings of type B aortic [...] Timmy Castillo M.D. Narrative 05/16/2023 4:50 [address] ENGRAVING PLATE MAKER EXAMINATION: ??CT ANGIOGRAPHY OF THE CHEST, ABDOMEN [...] l Result * eGFR (05/16/2023 4:03 AM ENGRAVING PLATE MAKER) [facility] Signature eGFR >90 >=60 mL/min/1. 73 m2 [facility] Comment: Interpretive Data Reference Interval Normal [...] last reviewed 2021. Blood 05/16/2023 4:03 AM ENGRAVING PLATE MAKER 05/16/2023 4:29 AM ENGRAVING PLATE MAKER Faustino Herrera MD LAB BLOOD ORDERABLES Final Result Performing Organization Address [facility] Co de Phone Number [facility] [place] [address] * Phosphorus (05/16/2023 4:03 AM ENGRAVING PLATE MAKER) Pathologist [facility] Phosphorus, pl 4.2 2.3 - 4.5 mg/dL [facility] Blood 05/16/2023 4:03 AM ENGRAVING PLATE MAKER 05/16/2023 4:29 AM ENGRAVING PLATE MAKER Faustino Herrera MD LAB BLOOD ORDERABLES Final Result Performing Organization Address [facility] de Phone Number [facility] [place] [address] * Magnesium (05/16/2023 4:03 AM ENGRAVING PLATE MAKER) [facility] Magnesium 2.4 1.4 - 2.5 mg/dL [facility] Blood 05/16/2023 4:03 AM ENGRAVING PLATE MAKER 05/16/2023 4:29 AM ENGRAVING PLATE MAKER Faustino Herrera MD LAB BLOOD ORDERABLES Final Result Performing Organization Address [facility] [place] [address] * Basic metabolic panel (05/16/2023 4:03 AM ENGRAVING PLATE MAKER) [facility] Sodium 140 135 - 145 mmol/L [facility] Potassium, pl 3.9 3.3 - 4.9 mmol/L [facility] Chloride 104 97 - 110 mmol/L [facility] CO2 23 22 - 32 mmol/L [facility] Anion gap 13 2 - 15 mmol/L [facility] BUN 12 6 - 25 mg/dL [facility] Creatinine 0.90 0.80 - 1.30 mg/dL [facility] Glucose 116 70 - 199 mg/dL [facility] Comment: Interpretive Data Fasting glucose [...] 2022. Calcium 9.0 8.5 - 10.3 mg/dL [facility] Blood 05/16/2023 4:03 AM ENGRAVING PLATE MAKER 05/16/2023 4:29 AM ENGRAVING PLATE MAKER Faustino Herrera MD LAB BLOOD ORDERABLES Final Result [facility] [place] [address] * (ABNORMAL) CBC without differential (05/16/2023 4:03 AM ENGRAVING PLATE MAKER) WBC 13.3(H) 3.8 - 9.9 K/cumm [facility] Hgb 9.6(L) 13.0 - 17.5 g/dL [facility] Hct 29.9(L) 38.9 - 50.3 % [facility] Plt 714(H) 150 - 400 K/cumm [facility] MPV 9.7 9.1 - 12.3 fL [facility] RBC 3.22(L) 4.30 - 5.80 M/cumm [facility] MCV 92.9 81.3 - 96.4 fL [facility] MCH 29.8 27.1 - 33.3 pg [facility] MCHC 32.1(L) 32.3 - 35.7 g/dL [facility] RDW CV 13.1 11.1 - 14.9 % [facility] RDW SD 44.6 35.7 - 48.1 fL [facility] NRBC abs 0.00 0.00 - 0.01 K/cumm [facility] Blood 05/16/2023 4:03 AM ENGRAVING PLATE MAKER 05/16/2023 4:29 AM ENGRAVING PLATE MAKER Faustino Herrera MD LAB BLOOD ORDERABLES Final Result Performing Organization Address City/[facility] Co de Phone Number [facility] [place] [address] * Type and screen (05/15/2023 5:26 AM ENGRAVING PLATE MAKER) Pathologist [facility] Ellen, indirect Negative ABO Rh A Positive [facility] Blood 05/15/2023 5:26 AM ENGRAVING PLATE MAKER 05/15/2023 5:26 AM ENGRAVING PLATE MAKER Faustino Herrera MD LAB BLOOD BANK TEST ORDERA BLES Final Result Performing Organization Address [facility] de Phone Number [facility] [place] [address] * (ABNORMAL) CBC without differential (05/15/2023 5:12 AM ENGRAVING PLATE MAKER) [facility] WBC 14.3(H) 3.8 - 9.9 K/cumm [facility] Hgb 9.6(L) 13.0 - 17.5 g/dL [facility] Comment:Consistent with prev ious result. Hct 29.4(L) 38.9 - 50.3 % [facility] Plt 679(H) 150 - 400 K/cumm [facility] MPV 9.3 9.1 - 12.3 fL [facility] RBC 3.21(L) 4.30 - 5.80 M/cumm [facility] MCV 91.6 81.3 - 96.4 fL [facility] MCH 29.9 27.1 - 33.3 pg [facility] MCHC 32.7 32.3 - 35.7 g/dL [facility] RDW CV 13.2 11.1 - 14.9 % [facility] RDW SD 44.7 35.7 - 48.1 fL [facility] NRBC abs 0.00 0.00 - 0.01 K/cumm [facility] Blood 05/15/2023 5:12 AM ENGRAVING PLATE MAKER 05/15/2023 5:21 AM ENGRAVING PLATE MAKER us Sonia Clayton MD LAB BLOOD ORDERABLES Final Resul t [facility] [place] [address] * eGFR (05/15/2023 4:36 AM ENGRAVING PLATE MAKER) eGFR >90 >=60 mL/min/1. 73 m2 [facility] Comment: Interpretive Data Reference Interval [...] last reviewed 2021. Blood 05/15/2023 4:36 AM ENGRAVING PLATE MAKER 05/15/2023 4:48 AM ENGRAVING PLATE MAKER Faustino Herrera MD LAB BLOOD ORDERABLES Final Result Performing Organization Address [facility] Co de Phone Number [facility] [place] [address] * Phosphorus (05/15/2023 4:36 AM ENGRAVING PLATE MAKER) Pathologist [facility] Phosphorus, pl 3.4 2.3 - 4.5 mg/dL [facility] Blood 05/15/2023 4:36 AM ENGRAVING PLATE MAKER 05/15/2023 4:48 AM ENGRAVING PLATE MAKER Faustino Herrera MD LAB BLOOD ORDERABLES Final Result Performing Organization Address [facility] de Phone Number [facility] [place] [address] * Magnesium (05/15/2023 4:36 AM ENGRAVING PLATE MAKER) [facility] Magnesium 2.5 1.4 - 2.5 mg/dL [facility] Blood 05/15/2023 4:36 AM ENGRAVING PLATE MAKER 05/15/2023 4:48 AM ENGRAVING PLATE MAKER Faustino Herrera MD LAB BLOOD ORDERABLES Final Result Performing Organization Address [facility] [place] [address] * Basic metabolic panel (05/15/2023 4:36 AM ENGRAVING PLATE MAKER) [facility] Sodium 138 135 - 145 mmol/L [facility] Potassium, pl 4.0 3.3 - 4.9 mmol/L [facility] Chloride 103 97 - 110 mmol/L [facility] CO2 22 22 - 32 mmol/L [facility] Anion gap 13 2 - 15 mmol/L [facility] BUN 14 6 - 25 mg/dL [facility] Creatinine 0.86 0.80 - 1.30 mg/dL [facility] Glucose 110 70 - 199 mg/dL [facility] Comment: Interpretive Data Fasting glucose [...] Calcium 9.1 8.5 - 10.3 mg/dL [facility] Blood 05/15/2023 4:36 AM ENGRAVING PLATE MAKER 05/15/2023 4:48 AM ENGRAVING PLATE MAKER Faustino Herrera MD LAB BLOOD ORDERABLES Final Result [facility] [place] [address] * (ABNORMAL) CBC without differential (05/15/2023 4:36 AM ENGRAVING PLATE MAKER) WBC 18.8(H) 3.8 - 9.9 K/cumm [facility] Hgb 6.0(C) 13.0 - 17.5 g/dL [facility] Comment:Critical result call ed to and read back by BASIM DIETZ RN on 05 15 2023 at 0500 to Yolette Braswell. Hct 18.5(L) 38.9 - 50.3 % [facility] Plt 834(H) 150 - 400 K/cumm [facility] MPV 9.6 9.1 - 12.3 fL [facility] RBC 1.98(L) 4.30 - 5.80 M/cumm [facility] MCV 93.4 81.3 - 96.4 fL [facility] MCH 30.3 27.1 - 33.3 pg [facility] MCHC 32.4 32.3 - 35.7 g/dL [facility] RDW CV 13.3 11.1 - 14.9 % [facility] RDW SD 45.4 35.7 - 48.1 fL [facility] NRBC abs 0.00 0.00 - 0.01 K/cumm [facility] Blood 05/15/2023 4:36 AM ENGRAVING PLATE MAKER 05/15/2023 4:48 AM ENGRAVING PLATE MAKER us Faustino Herrera MD LAB BLOOD ORDERABLES Final Result [facility] [place] [address] * eGFR (05/14/2023 6:01 AM ENGRAVING PLATE MAKER) eGFR >90 >=60 mL/min/1. 73 m2 [facility] Comment: Interpretive Data Reference Interval [...] last reviewed 2021. Blood 05/14/2023 6:01 AM ENGRAVING PLATE MAKER 05/14/2023 6:19 AM ENGRAVING PLATE MAKER Alonzo Duncan MD LAB BLOOD ORDERABLES Fin al Result Performing Organization Address [facility] Co de Phone Number [facility] [place] [address] * Phosphorus (05/14/2023 6:01 AM ENGRAVING PLATE MAKER) Pathologist [facility] Phosphorus, pl 4.0 2.3 - 4.5 mg/dL [facility] Blood 05/14/2023 6:01 AM ENGRAVING PLATE MAKER 05/14/2023 6:19 AM ENGRAVING PLATE MAKER us Faustino Herrera MD LAB BLOOD ORDERABLES Final Result Performing Organization Address [facility] Co de Phone Number [facility] Department [place] [address] * Magnesium (05/14/2023 6:01 AM ENGRAVING PLATE MAKER) Pathologist [facility] Magnesium 2.3 1.4 - 2.5 mg/dL [facility] Blood 05/14/2023 6:01 AM ENGRAVING PLATE MAKER 05/14/2023 6:19 AM ENGRAVING PLATE MAKER Faustino Herrera MD LAB BLOOD ORDERABLES Final Result Performing Organization Address [facility] [place] [address] * Basic metabolic panel (05/14/2023 6:01 AM ENGRAVING PLATE MAKER) Sodium 138 135 - 145 mmol/L [facility] Potassium, pl 3.8 3.3 - 4.9 mmol/L [facility] Chloride 102 97 - 110 mmol/L [facility] CO2 25 22 - 32 mmol/L [facility] Anion gap 11 2 - 15 mmol/L [facility] BUN 15 6 - 25 mg/dL [facility] Creatinine 0.86 0.80 - 1.30 mg/dL [facility] Glucose 123 70 - 199 mg/dL [facility] Comment: Interpretive Data Fasting glucose [...] 2022. Calcium 9.4 8.5 - 10.3 mg/dL [facility] Blood 05/14/2023 6:01 AM ENGRAVING PLATE MAKER 05/14/2023 6:19 AM ENGRAVING PLATE MAKER Faustino Herrera MD LAB BLOOD ORDERABLES Final Result [facility] [place] [address] * (ABNORMAL) CBC without differential (05/14/2023 6:01 AM ENGRAVING PLATE MAKER) [facility] WBC 14.5(H) 3.8 - 9.9 K/cumm [facility] Hgb 10.5(L) 13.0 - 17.5 g/dL [facility] Comment: Interpretive Data A reference range for this assay has not been established for patients with an unknown legal sex. Please refer to the laboratory test catalog for established sex-specific reference intervals. Current interpretive data was last revised on 2023. Hct 32.1(L) 38.9 - 50.3 % [facility] Comment: Interpretive Data A reference range for this assay has not been established for patients with an unknown legal sex. Please refer to the laboratory test catalog for established sex-specific reference intervals. Current interpretive data was last revised on 2023. Plt 679(H) 150 - 400 K/cumm [facility] MPV 9.9 9.1 - 12.3 fL [facility] RBC 3.49(L) 4.30 - 5.80 M/cumm [facility] Comment: Interpretive Data A reference range for this assay has not been established for patients with an unknown legal sex. Please refer to the laboratory test catalog for established sex-specific reference intervals. Current interpretive data was last revised on 2023. MCV 92.0 81.3 - 96.4 fL [facility] MCH 30.1 27.1 - 33.3 pg [facility] MCHC 32.7 32.3 - 35.7 g/dL [facility] RDW CV 13.3 11.1 - 14.9 % [facility] RDW SD 45.0 35.7 - 48.1 fL [facility] NRBC abs 0.00 0.00 - 0.01 K/cumm [facility] Blood 05/14/2023 6:01 AM ENGRAVING PLATE MAKER 05/14/2023 6:20 AM ENGRAVING PLATE MAKER us Faustino Herrera MD LAB BLOOD ORDERABLES Final Result [facility] Department [place] [address] * XR Chest 1 View (05/13/2023 7:10 PM ENGRAVING PLATE MAKER) Anatomical Region Laterality Modality Body, Chest N/A Computed Radiogr aphy 05/14/2023 7:04 AM ENGRAVING PLATE MAKER Impressions 05/14/2023 7:49 AM ENGRAVING PLATE MAKER The current study is compared with the [...] by: Elzbieta Vital.D. Narrative 05/14/2023 7:49 AM ENGRAVING PLATE MAKER EXAMINATION: 1 view chest radiograph Procedure Note Hipolito Molbey MD - 05/14/2023 EXAMINATION: 1 view chest [...] sult * Critical Care (05/13/2023 12:56 PM ENGRAVING PLATE MAKER) Narrative Dalton Locke MD - 05/13/2023 12:56 PM ENGRAVING PLATE MAKER Dalton Locke MD ? 05/13/2023 12:57 PM [...] plan with the patient's team and other medical/jewelry consultant staff. This time was in addition [...] Final Result * eGFR (05/13/2023 12:10 AM ENGRAVING PLATE MAKER) eGFR >90 >=60 mL/min/1. 73 m2 JAIRON [...] reviewed 2021. Blood 05/13/2023 12:1 0 AM ENGRAVING PLATE MAKER 05/13/2023 12:31 AM ENGRAVING PLATE MAKER us Alonzo Duncan MD LAB BLOOD ORDERABLES Fin al Result [facility] [place] [address] * Type and screen (05/13/2023 12:10 AM ENGRAVING PLATE MAKER) Ellen, indirect Negative ABO Rh A Positive JAIRON ERWIN Blood 05/13/2023 12:1 0 AM ENGRAVING PLATE MAKER 05/13/2023 12:42 AM ENGRAVING PLATE MAKER Narrative [facility] - 05/13/2023 1:43 AM ENGRAVING PLATE MAKER Has the patient had Daratumumab or Isatuximab in the past 6 months?->Unknown Faustino Herrera MD LAB BLOOD BANK TEST ORDERA BLES Final Result Performing Organization Address [facility] [place] [address] * aPTT (05/13/2023 12:10 AM ENGRAVING PLATE MAKER) aPTT 33 28 - 38 sec [facility] Comment: Interpretive Data Heparin therapeutic range: 66.0 - 100.0 seconds. Range based on correlation with therapeutic heparin activity range of 0.3 - 0.7 Units/mL. Current interpretive data was last revised on 2023. Blood 05/13/2023 12:1 0 AM ENGRAVING PLATE MAKER 05/13/2023 12:39 AM ENGRAVING PLATE MAKER Faustino Herrera MD LAB BLOOD ORDERABLES Final Result Performing Organization Address [facility] [place] [address] * (ABNORMAL) Protime-INR (05/13/2023 12:10 AM ENGRAVING PLATE MAKER) PT 15.5(H) 10.3 - 13.7 sec [facility] INR 1.36(H) 0.90 - 1.20 [facility] Comment: Interpretive data Oral anticoagulant therapeutic ranges: Venous thromboembolism prophylaxis or treatment: 2.0-3.0 CARDIOLOGY Standard range: 2.0-3.0 High-intensity range: 2.5-3.5 Refer to indication-specific guidelines for appropriate target ranges for prosthetic heart valve replacement. Current interpretive data was last revised on 2019. Blood 05/13/2023 12:1 0 AM ENGRAVING PLATE MAKER 05/13/2023 12:39 AM ENGRAVING PLATE MAKER Faustino Herrera MD LAB BLOOD ORDERABLES Final Result Performing Organization Address [facility] Co de Phone Number [facility] [place] [address] * Phosphorus (05/13/2023 12:10 AM ENGRAVING PLATE MAKER) Pathologist [facility] Phosphorus, pl 3.3 2.3 - 4.5 mg/dL [facility] Blood 05/13/2023 12:1 0 AM ENGRAVING PLATE MAKER 05/13/2023 12:31 AM ENGRAVING PLATE MAKER Faustino Herrera MD LAB BLOOD ORDERABLES Final Result Performing Organization Address [facility] de Phone Number [facility] [place] [address] * Magnesium (05/13/2023 12:10 AM ENGRAVING PLATE MAKER) [facility] Magnesium 2.2 1.4 - 2.5 mg/dL [facility] Blood 05/13/2023 12:1 0 AM ENGRAVING PLATE MAKER 05/13/2023 12:31 AM ENGRAVING PLATE MAKER Faustino Herrera MD LAB BLOOD ORDERABLES Final Result Performing Organization Address [facility] de Phone Number [facility] [place] [address] * Basic metabolic panel (05/13/2023 12:10 AM ENGRAVING PLATE MAKER) [facility] Sodium 137 135 - 145 mmol/L [facility] Potassium, pl 3.8 3.3 - 4.9 mmol/L [facility] Chloride 100 97 - 110 mmol/L [facility] CO2 25 22 - 32 mmol/L [facility] Anion gap 12 2 - 15 mmol/L [facility] BUN 16 6 - 25 mg/dL [facility] Creatinine 0.84 0.80 - 1.30 mg/dL [facility] Glucose 111 70 - 199 mg/dL [facility] Comment: Interpretive Data Fasting glucose [...] Calcium 9.1 8.5 - 10.3 mg/dL [facility] Blood 05/13/2023 12:1 0 AM ENGRAVING PLATE MAKER 05/13/2023 12:31 AM ENGRAVING PLATE MAKER us Faustino Herrera MD LAB BLOOD ORDERABLES Final Result [facility] [place] [address] * (ABNORMAL) CBC without differential (05/13/2023 12:10 AM ENGRAVING PLATE MAKER) [facility] WBC 13.2(H) 3.8 - 9.9 K/cumm [facility] Hgb 10.2(L) 13.0 - 17.5 g/dL [facility] Comment: Interpretive Data A reference range for this assay has not been established for patients with an unknown legal sex. Please refer to the laboratory test catalog for established sex-specific reference intervals. Current interpretive data was last revised on 2023. Hct 32.0(L) 38.9 - 50.3 % [facility] Comment: Interpretive Data A reference range for this assay has not been established for patients with an unknown legal sex. Please refer to the laboratory test catalog for established sex-specific reference intervals. Current interpretive data was last revised on 2023. Plt 550(H) 150 - 400 K/cumm [facility] MPV 9.7 9.1 - 12.3 fL [facility] RBC 3.50(L) 4.30 - 5.80 M/cumm [facility] Comment: Interpretive Data A reference range for this assay has not been established for patients with an unknown legal sex. Please refer to the laboratory test catalog for established sex-specific reference intervals. Current interpretive data was last revised on 2023. MCV 91.4 81.3 - 96.4 fL [facility] MCH 29.1 27.1 - 33.3 pg [facility] MCHC 31.9(L) 32.3 - 35.7 g/dL [facility] RDW CV 13.2 11.1 - 14.9 % [facility] RDW SD 44.3 35.7 - 48.1 fL [facility] NRBC abs 0.00 0.00 - 0.01 K/cumm [facility] Blood 05/13/2023 12:1 0 AM ENGRAVING PLATE MAKER 05/13/2023 12:31 AM ENGRAVING PLATE MAKER Faustino Herrera MD LAB BLOOD ORDERABLES Final Result Performing Organization Address City/State/[facility] Co de Phone Number [facility] [place] [address] * XR Chest 1 View (05/12/2023 7:27 PM ENGRAVING PLATE MAKER) Anatomical Region Laterality Modality Body, Chest N/A Digital Radiogra phy 05/13/2023 6:11 AM ENGRAVING PLATE MAKER Impressions 05/13/2023 6:11 AM ENGRAVING PLATE MAKER Comparison is made to 2023. ??The right jugular catheter is been removed. ??There is an aortic stent graft. Atelectasis is seen within the left lung base. ??No pulmonary edema. No pleural effusion or pneumothorax. ??No pneumonic consolidation. Stable heart size. Electronically signed by: Gen Baker M.D. Narrative 05/13/2023 6:11 AM ENGRAVING PLATE MAKER EXAMINATION: 1 view chest radiograph Procedure Note [...] sult * Critical Care (05/12/2023 4:16 PM ENGRAVING PLATE MAKER) Narrative Dalton Locke MD - 05/12/2023 4:16 PM ENGRAVING PLATE MAKER Dalton Locke MD ? 05/12/2023 ??4:16 PM [...] plan with the patient's team and other medical/jewelry consultant staff. This time was in addition [...] (ABNORMAL) CBC without differential (05/12/2023 1:58 PM ENGRAVING PLATE MAKER) [facility] WBC 13.0(H) 3.8 - 9.9 K/cumm [facility] Hgb 9.5(L) 13.0 - 17.5 g/dL [facility] Comment: Interpretive Data A reference range for this assay has not been established for patients with an unknown legal sex. Please refer to the laboratory test catalog for established sex-specific reference intervals. Current interpretive data was last revised on 2023. Hct 29.0(L) 38.9 - 50.3 % [facility] Comment: Interpretive Data A reference range for this assay has not been established for patients with an unknown legal sex. Please refer to the laboratory test catalog for established sex-specific reference intervals. Current interpretive data was last revised on 2023. Plt 478(H) 150 - 400 K/cumm [facility] MPV 9.7 9.1 - 12.3 fL [facility] RBC 3.18(L) 4.30 - 5.80 M/cumm [facility] Comment: Interpretive Data A reference range for this assay has not been established for patients with an unknown legal sex. Please refer to the laboratory test catalog for established sex-specific reference intervals. Current interpretive data was last revised on 2023. MCV 91.2 81.3 - 96.4 fL [facility] MCH 29.9 27.1 - 33.3 pg [facility] MCHC 32.8 32.3 - 35.7 g/dL [facility] RDW CV 13.2 11.1 - 14.9 % [facility] RDW SD 44.2 35.7 - 48.1 fL [facility] NRBC abs 0.00 0.00 - 0.01 K/cumm [facility] Blood 05/12/2023 1:58 PM ENGRAVING PLATE MAKER 05/12/2023 2:18 PM ENGRAVING PLATE MAKER Dustin Souza DO LAB BLOOD ORDERABLES F inal Result Performing Organization Address City/[facility]/ZIP Co de Phone Number [facility] [place] [address] * Transfuse RBC (05/12/2023 11:13 AM ENGRAVING PLATE MAKER) Blood Faustino Herrera MD BLOOD TRANSFUSION ORDERABL ES Final Result Performing Organization Address [facility]/ZIP Co de Phone Number [facility] [place] [address] * Transfuse RBC: 1 Units (05/12/2023 11:13 AM ENGRAVING PLATE MAKER) Blood Faustino Herrera MD BLOOD TRANSFUSION ORDERABL ES Final Result * POCT glucose (05/12/2023 8:50 AM ENGRAVING PLATE MAKER) [facility] Glucose, POC 117 70 - 199 mg/dL [facility] Blood 05/12/2023 8:50 AM ENGRAVING PLATE MAKER 05/12/2023 8:50 AM ENGRAVING PLATE MAKER Faustino Herrera MD LAB POCT ORDERABLES - ROSIE CE Final Result Performing Organization Address [facility] Co de Phone Number [facility] [place] [address] * Prepare RBC: 1 Units (05/12/2023 7:40 AM ENGRAVING PLATE MAKER) [facility] Product code [id number] Unit Number [id number] [facility] Product Blood Type ANEG [facility] Dispense Status PRESUMED TRANSFUSED [facility] Blood 05/12/2023 7:40 AM ENGRAVING PLATE MAKER 05/12/2023 7:40 AM ENGRAVING PLATE MAKER Narrative [facility] - 05/12/2023 4:02 PM ENGRAVING PLATE MAKER Other indication->Hgb goal >10 per vasc Are special requirements needed? (All products are leukoreduced and CMV- safe)- >No Date required:-[id number] LRRBC # of Epdul-0-Vilgd Reasons:-Other (specify)} Faustino Herrera MD BLOOD BANK PRODUCT ORDERAB LES Final Result Performing Organization Address [facility] Co de Phone Number [facility] [address] * eGFR (05/12/2023 12:12 AM ENGRAVING PLATE MAKER) [facility] eGFR >90 >=60 mL/min/1. 73 m2 [facility] Comment: Interpretive Data Reference Interval [...] reviewed 2021. Blood 05/12/2023 12:1 2 AM ENGRAVING PLATE MAKER 05/12/2023 12:39 AM ENGRAVING PLATE MAKER us Alonzo Duncan MD LAB BLOOD ORDERABLES Fin al Result Performing Organization Address City/[facility]/ZIP Co de Phone Number [facility] [place] [address] * Potassium, whole blood (05/12/2023 12:12 AM ENGRAVING PLATE MAKER) Pathologist [facility] Potassium, bld 4.1 3.3 - 4.9 mmol/L [facility] Blood 05/12/2023 12:1 2 AM ENGRAVING PLATE MAKER 05/12/2023 12:35 AM ENGRAVING PLATE MAKER us Anderson Tolentino Jr., BUSINESS PROCESS ARCHITECT LAB BLOOD ORDERABLE S Final Result [facility] Department [place] [address] * (ABNORMAL) Triglycerides (05/12/2023 12:12 AM ENGRAVING PLATE MAKER) Triglycerides 183(H) <=149 mg/dL [facility] Comment: Interpretive Data Ages < or [...] on 2018. Blood 05/12/2023 12:1 2 AM ENGRAVING PLATE MAKER 05/12/2023 12:39 AM ENGRAVING PLATE MAKER Faustino Herrera MD LAB BLOOD ORDERABLES Final Result Performing Organization Address [facility] Co de Phone Number [facility] [place] [address] * aPTT (05/12/2023 12:12 AM ENGRAVING PLATE MAKER) aPTT 28 28 - 38 sec [facility] Comment: Interpretive Data Heparin therapeutic range: 66.0 - 100.0 seconds. Range based on correlation with therapeutic heparin activity range of 0.3 - 0.7 Units/mL. Current interpretive data was last revised on 2023. Blood 05/12/2023 12:1 2 AM ENGRAVING PLATE MAKER 05/12/2023 12:39 AM ENGRAVING PLATE MAKER Faustino Herrera MD LAB BLOOD ORDERABLES Final Result Performing Organization Address City/[facility] Co de Phone Number [facility] [place] [address] * (ABNORMAL) Protime-INR (05/12/2023 12:12 AM ENGRAVING PLATE MAKER) PT 15.3(H) 10.3 - 13.7 sec [facility] INR 1.34(H) 0.90 - 1.20 [facility] Comment: Interpretive data Oral anticoagulant therapeutic ranges: Venous thromboembolism prophylaxis or treatment: 2.0-3.0 CARDIOLOGY Standard range: 2.0-3.0 High-intensity range: 2.5-3.5 Refer to indication-specific guidelines for appropriate target ranges for prosthetic heart valve replacement. Current interpretive data was last revised on 2019. Blood 05/12/2023 12:1 2 AM ENGRAVING PLATE MAKER 05/12/2023 12:39 AM ENGRAVING PLATE MAKER Faustino Herrera MD LAB BLOOD ORDERABLES Final Result Performing Organization Address [facility] Co de Phone Number [facility] [place] [address] * Phosphorus (05/12/2023 12:12 AM ENGRAVING PLATE MAKER) Phosphorus, pl 2.6 2.3 - 4.5 mg/dL [facility] Blood 05/12/2023 12:1 2 AM ENGRAVING PLATE MAKER 05/12/2023 12:39 AM ENGRAVING PLATE MAKER Faustino Herrera MD LAB BLOOD ORDERABLES Final Result Performing Organization Address City/[facility] Co de Phone Number [facility] Department [place] [address] * Magnesium (05/12/2023 12:12 AM ENGRAVING PLATE MAKER) Pathologist [facility] Magnesium 2.3 1.4 - 2.5 mg/dL [facility] Blood 05/12/2023 12:1 2 AM ENGRAVING PLATE MAKER 05/12/2023 12:39 AM ENGRAVING PLATE MAKER us Faustino Herrera MD LAB BLOOD ORDERABLES Final Result [facility] [place] [address] * Basic metabolic panel (05/12/2023 12:12 AM ENGRAVING PLATE MAKER) Pathologist [facility] Sodium 136 135 - 145 mmol/L [facility] Potassium, pl 4.2 3.3 - 4.9 mmol/L [facility] Chloride 102 97 - 110 mmol/L [facility] CO2 24 22 - 32 mmol/L [facility] Anion gap 10 2 - 15 mmol/L [facility] BUN 19 6 - 25 mg/dL [facility] Creatinine 0.96 0.80 - 1.30 mg/dL [facility] Glucose 113 70 - 199 mg/dL [facility] Comment: Interpretive Data Fasting glucose [...] Calcium 8.8 8.5 - 10.3 mg/dL [facility] Blood 05/12/2023 12:1 2 AM ENGRAVING PLATE MAKER 05/12/2023 12:39 AM ENGRAVING PLATE MAKER us Faustino Herrera MD LAB BLOOD ORDERABLES Final Result [facility] [place] [address] * (ABNORMAL) CBC without differential (05/12/2023 12:12 AM ENGRAVING PLATE MAKER) WBC 13.6(H) 3.8 - 9.9 K/cumm [facility] Hgb 8.6(L) 13.0 - 17.5 g/dL [facility] Comment: Interpretive Data A reference range for this assay has not been established for patients with an unknown legal sex. Please refer to the laboratory test catalog for established sex-specific reference intervals. Current interpretive data was last revised on 2023. Hct 25.9(L) 38.9 - 50.3 % [facility] Comment: Interpretive Data A reference range for this assay has not been established for patients with an unknown legal sex. Please refer to the laboratory test catalog for established sex-specific reference intervals. Current interpretive data was last revised on 2023. Plt 483(H) 150 - 400 K/cumm [facility] MPV 9.6 9.1 - 12.3 fL [facility] RBC 2.82(L) 4.30 - 5.80 M/cumm [facility] Comment: Interpretive Data A reference range for this assay has not been established for patients with an unknown legal sex. Please refer to the laboratory test catalog for established sex-specific reference intervals. Current interpretive data was last revised on 2023. MCV 91.8 81.3 - 96.4 fL [facility] MCH 30.5 27.1 - 33.3 pg [facility] MCHC 33.2 32.3 - 35.7 g/dL [facility] RDW CV 13.5 11.1 - 14.9 % [facility] RDW SD 45.5 35.7 - 48.1 fL [facility] NRBC abs 0.00 0.00 - 0.01 K/cumm [facility] Blood 05/12/2023 12:1 2 AM ENGRAVING PLATE MAKER 05/12/2023 12:38 AM ENGRAVING PLATE MAKER us Faustino Herrera MD LAB BLOOD ORDERABLES Final Result [facility] [place] [address] * XR Chest 1 View (2023 8:01 PM ENGRAVING PLATE MAKER) Anatomical Region Laterality Modality Body, Chest N/A Computed Radiogr aphy 05/12/2023 9:23 AM ENGRAVING PLATE MAKER Impressions 05/12/2023 9:46 AM ENGRAVING PLATE MAKER The current study is compared with the [...] Kamaljit Wheeler M.D. Narrative 05/12/2023 9:46 AM ENGRAVING PLATE MAKER EXAMINATION: 1 view chest radiograph Procedure Note [...] sult * Critical Care (2023 4:16 PM ENGRAVING PLATE MAKER) Narrative Dalton Locke MD - 2023 4:16 PM ENGRAVING PLATE MAKER Dalton Locke MD ? 05/12/2023 ??4:16 PM [...] plan with the patient's team and other medical/jewelry consultant staff. This time was in addition [...] CTA Chest Abdomen Pelvis (2023 11:16 AM ENGRAVING PLATE MAKER) Anatomical Region Laterality Modality Body N/A Computed Tomogra phy 2023 11:5 7 AM ENGRAVING PLATE MAKER Impressions 2023 8:24 PM ENGRAVING PLATE MAKER 1. ??Residual type B thoracoabdominal aortic dissection [...] Monster Easley M.D. Narrative 2023 8:24 PM ENGRAVING PLATE MAKER EXAMINATION: CT ANGIOGRAPHY OF THE CHEST, ABDOMEN [...] Electronically signed by: Monster Easley M.D. Faustino Herrera MD IMG CT PROCEDURES Final Re sult * eGFR (2023 12:14 AM ENGRAVING PLATE MAKER) [facility] eGFR 80 >=60 mL/min/1. 73 m2 [facility] Comment: Interpretive Data Reference Interval [...] reviewed 2021. Blood 2023 12:1 4 AM ENGRAVING PLATE MAKER 2023 12:31 AM ENGRAVING PLATE MAKER Alonzo Duncan MD LAB BLOOD ORDERABLES Fin al Result Performing Organization Address [facility] Co de Phone Number [facility] Department [place] [address] * (ABNORMAL) Blood gas, arterial (2023 12:14 AM ENGRAVING PLATE MAKER) pH, Art 7.43 7.35 - 7.45 [facility] PCO2, Arterial 34(L) 35 - 45 mmHg [facility] PO2, Arterial 110(H) 83 - 108 mmHg [facility] HCO3 Art (Calculated) 23 20 - 30 mmol/L [facility] BE, art -1 mmol/L [facility] Comment: Interpretive Data No Reference Range Established Current Interpretive Data was last revised on 2017 O2 Sat Art (Measured) 98(H) 90 - 95 % [facility] Blood 2023 12:1 4 AM ENGRAVING PLATE MAKER 2023 12:28 AM ENGRAVING PLATE MAKER Faustino Herrera MD LAB BLOOD ORDERABLES Final Result Performing Organization Address [facility] Co de Phone Number [facility] Department [place] [address] * Potassium, whole blood (2023 12:14 AM ENGRAVING PLATE MAKER) Potassium, bld 4.0 3.3 - 4.9 mmol/L [facility] Blood 2023 12:1 4 AM ENGRAVING PLATE MAKER 2023 12:28 AM ENGRAVING PLATE MAKER Anderson Tolentino Jr., NP LAB BLOOD ORDERABLE S Final Result Performing Organization Address [facility] [place] [address] * aPTT (2023 12:14 AM ENGRAVING PLATE MAKER) aPTT 36 28 - 38 sec [facility] Comment: Interpretive Data Heparin therapeutic range: 66.0 - 100.0 seconds. Range based on correlation with therapeutic heparin activity range of 0.3 - 0.7 Units/mL. Current interpretive data was last revised on 2023. Blood 2023 12:1 4 AM ENGRAVING PLATE MAKER 2023 12:41 AM ENGRAVING PLATE MAKER Faustino Herrera MD LAB BLOOD ORDERABLES Final Result Performing Organization Address [facility] [place] [address] * (ABNORMAL) Protime-INR (2023 12:14 AM ENGRAVING PLATE MAKER) PT 15.8(H) 10.3 - 13.7 sec [facility] INR 1.39(H) 0.90 - 1.20 [facility] Comment: Interpretive data Oral anticoagulant therapeutic ranges: Venous thromboembolism prophylaxis or treatment: 2.0-3.0 CARDIOLOGY Standard range: 2.0-3.0 High-intensity range: 2.5-3.5 Refer to indication-specific guidelines for appropriate target ranges for prosthetic heart valve replacement. Current interpretive data was last revised on 2019. Blood 2023 12:1 4 AM ENGRAVING PLATE MAKER 2023 12:41 AM ENGRAVING PLATE MAKER Faustino Herrera MD LAB BLOOD ORDERABLES Final Result Performing Organization Address [facility] [place] [address] * (ABNORMAL) Phosphorus (2023 12:14 AM ENGRAVING PLATE MAKER) Pathologist [facility] Phosphorus, pl 2.0(L) 2.3 - 4.5 mg/dL [facility] Blood 2023 12:1 4 AM ENGRAVING PLATE MAKER 2023 12:31 AM ENGRAVING PLATE MAKER Faustino Herrera MD LAB BLOOD ORDERABLES Final Result Performing Organization Address [facility] de Phone Number [facility] Department [place] [address] * Magnesium (2023 12:14 AM ENGRAVING PLATE MAKER) [facility] Magnesium 2.4 1.4 - 2.5 mg/dL [facility] Blood 2023 12:1 4 AM ENGRAVING PLATE MAKER 2023 12:31 AM ENGRAVING PLATE MAKER Faustino Herrera MD LAB BLOOD ORDERABLES Final Result Performing Organization Address [facility] de Phone Number [facility] [place] [address] * Basic metabolic panel (2023 12:14 AM ENGRAVING PLATE MAKER) [facility] Sodium 136 135 - 145 mmol/L [facility] Potassium, pl 4.1 3.3 - 4.9 mmol/L [facility] Chloride 100 97 - 110 mmol/L [facility] CO2 23 22 - 32 mmol/L [facility] Anion gap 13 2 - 15 mmol/L [facility] BUN 23 6 - 25 mg/dL [facility] Creatinine 1.24 0.80 - 1.30 mg/dL [facility] Glucose 121 70 - 199 mg/dL [facility] Comment: Interpretive Data Fasting glucose [...] Calcium 8.9 8.5 - 10.3 mg/dL [facility] Blood 2023 12:1 4 AM ENGRAVING PLATE MAKER 2023 12:31 AM ENGRAVING PLATE MAKER us Faustino Herrera MD LAB BLOOD ORDERABLES Final Result [facility] [place] [address] * (ABNORMAL) CBC without differential (2023 12:14 AM ENGRAVING PLATE MAKER) [facility] WBC 17.6(H) 3.8 - 9.9 K/cumm [facility] Hgb 8.7(L) 13.0 - 17.5 g/dL [facility] Comment: Interpretive Data A reference range for this assay has not been established for patients with an unknown legal sex. Please refer to the laboratory test catalog for established sex-specific reference intervals. Current interpretive data was last revised on 2023. Hct 26.5(L) 38.9 - 50.3 % [facility] Comment: Interpretive Data A reference range for this assay has not been established for patients with an unknown legal sex. Please refer to the laboratory test catalog for established sex-specific reference intervals. Current interpretive data was last revised on 2023. Plt 411(H) 150 - 400 K/cumm [facility] MPV 9.6 9.1 - 12.3 fL [facility] RBC 2.93(L) 4.30 - 5.80 M/cumm [facility] Comment: Interpretive Data A reference range for this assay has not been established for patients with an unknown legal sex. Please refer to the laboratory test catalog for established sex-specific reference intervals. Current interpretive data was last revised on 2023. MCV 90.4 81.3 - 96.4 fL [facility] MCH 29.7 27.1 - 33.3 pg [facility] MCHC 32.8 32.3 - 35.7 g/dL [facility] RDW CV 13.5 11.1 - 14.9 % [facility] RDW SD 45.0 35.7 - 48.1 fL [facility] NRBC abs 0.02(H) 0.00 - 0.01 K/cumm [facility] Blood 2023 12:1 4 AM ENGRAVING PLATE MAKER 2023 12:31 AM ENGRAVING PLATE MAKER us Faustino Herrera MD LAB BLOOD ORDERABLES Final Result [facility] Department [place] [address] * XR Chest 1 View (05/10/2023 9:50 PM ENGRAVING PLATE MAKER) Anatomical Region Laterality Modality Body, Chest N/A Computed Radiogr aphy 2023 9:17 AM ENGRAVING PLATE MAKER Impressions 2023 9:27 AM ENGRAVING PLATE MAKER The current study is compared with the [...] Chung Boone M.D. Narrative 2023 9:27 AM ENGRAVING PLATE MAKER EXAMINATION: 1 view chest radiograph Procedure Note [...] * ECG 12 lead (05/10/2023 6:19 PM ENGRAVING PLATE MAKER) Pathologist [facility] Ventricular Rate EKG/Min 119 BPM [facility] Atrial Rate 119 BPM [facility] IL-Interval (MSEC) 138 ms [facility] QRS-Interval (MSEC) 88 ms [facility] QT-Interval (MSEC) 322 ms [facility] QTc 452 ms [facility] P [place] 39 degrees [facility] R [place] -5 degrees [facility] T [place] 42 degrees [facility] Diagnosis Poor data quality, interpretation may be [...] Lateral leads Confirmed by ADAM VALVERDE M.D ([id number]) on 2023 11:47:49 AM [facility] 05/10/2023 6:19 PM ENGRAVING PLATE MAKER 2023 11:47 AM ENGRAVING PLATE MAKER Faustino Herrera MD ECG ORDERABLES Final Resu lt [facility] * Lidocaine level (05/10/2023 4:59 PM ENGRAVING PLATE MAKER) Lidocaine (Xylocaine) 3.8 1.5 - 5.0 mcg/mL [facility] Blood 05/10/2023 4:59 PM ENGRAVING PLATE MAKER 05/10/2023 5:09 PM ENGRAVING PLATE MAKER Faustino Herrera MD LAB BLOOD ORDERABLES Final Result [facility] [place] [address] * Critical Care (05/10/2023 4:14 PM ENGRAVING PLATE MAKER) Narrative Dalton Locke MD - 05/10/2023 4:14 PM ENGRAVING PLATE MAKER Dalton Locke MD ? 05/12/2023 ??4:16 PM [...] plan with the ICU team and other medical/jewelry consultant staff, making frequent assessments and decisions [...] * Blood culture Blood (05/10/2023 12:57 PM ENGRAVING PLATE MAKER) Report Final Report: No growth [facility] Blood 05/10/2023 12:5 7 PM ENGRAVING PLATE MAKER 05/10/2023 2:14 PM ENGRAVING PLATE MAKER Narrative [facility] - 05/14/2023 4:00 PM ENGRAVING PLATE MAKER Collection->Peripheral 1. ?Blood cultures are incubated for [...] organism identification may be performed using the [employer] Gram-Positive Blood Culture Assay. This assay detects microbial DNA in positive blood culture broth via hybridization of target DNA to capture oligonucleotides on a microarray. This assay has been cleared by the [place] Food and Drug Administration and its performance characteristics have been verified by the [facility] Microbiology Laboratory. 5. ?For questions about this culture, contact the Microbiology Laboratory at [phone]. Interpretive data was last revised on 2019. us Marina Cordova NP LAB MICROBIOLOGY - GENERAL ORDERABLES Final Result [facility] [place] [address] * Blood culture Blood (05/10/2023 12:57 PM ENGRAVING PLATE MAKER) Report Final Report: No growth [facility] Blood 05/10/2023 12:5 7 PM ENGRAVING PLATE MAKER 05/10/2023 2:14 PM ENGRAVING PLATE MAKER Narrative [facility] - 05/14/2023 4:00 PM ENGRAVING PLATE MAKER Collection->Peripheral 1. ?Blood cultures are incubated for [...] organism identification may be performed using the [employer] Gram-Positive Blood Culture Assay. This assay detects microbial DNA in positive blood culture broth via hybridization of target DNA to capture oligonucleotides on a microarray. This assay has been cleared by the [place] Food and Drug Administration and its performance characteristics have been verified by the [facility] Microbiology Laboratory. 5. ?For questions about this culture, contact the Microbiology Laboratory at [phone]. Interpretive data was last revised on 2019. Marina Cordova NP LAB MICROBIOLOGY - GENERAL ORDERABLES Final Result [facility] [place] [address] * Hepatic function panel (05/10/2023 12:37 AM ENGRAVING PLATE MAKER) Bilirubin, total 0.7 0.1 - 1.2 mg/dL [facility] Bilirubin, direct 0.3 0.1 - 0.3 mg/dL [facility] Protein, pl 8.0 6.5 - 8.5 g/dL [facility] Albumin 3.7 3.5 - 5.0 g/dL [facility] Alk phos 88 40 - 130 Units/L [facility] ALT 28 7 - 55 Units/L [facility] AST 30 10 - 50 Units/L [facility] Blood 05/10/2023 12:3 7 AM ENGRAVING PLATE MAKER 05/10/2023 12:48 AM ENGRAVING PLATE MAKER us Faustino Herrera MD LAB BLOOD ORDERABLES Final Result [facility] [place] [address] * eGFR (05/10/2023 12:37 AM ENGRAVING PLATE MAKER) eGFR >90 >=60 mL/min/1. 73 m2 [facility] Comment: Interpretive Data Reference Interval [...] reviewed 2021. Blood 05/10/2023 12:3 7 AM ENGRAVING PLATE MAKER 05/10/2023 12:48 AM ENGRAVING PLATE MAKER Alonzo Duncan MD LAB BLOOD ORDERABLES Fin al Result Performing Organization Address [facility] Co de Phone Number [facility] [place] [address] * (ABNORMAL) Blood gas, arterial (05/10/2023 12:37 AM ENGRAVING PLATE MAKER) pH, Art 7.41 7.35 - 7.45 [facility] PCO2, Arterial 34(L) 35 - 45 mmHg [facility] PO2, Arterial 131(H) 83 - 108 mmHg [facility] HCO3 Art (Calculated) 22 20 - 30 mmol/L [facility] BE, art -3 mmol/L [facility] Comment: Interpretive Data No Reference Range Established Current Interpretive Data was last revised on 2017 O2 Sat Art (Measured) 99(H) 90 - 95 % [facility] Blood 05/10/2023 12:3 7 AM ENGRAVING PLATE MAKER 05/10/2023 12:40 AM ENGRAVING PLATE MAKER Faustino Herrera MD LAB BLOOD ORDERABLES Final Result Performing Organization Address [facility] de Phone Number [facility] [place] [place] [address] * (ABNORMAL) Lactate (05/10/2023 12:37 AM ENGRAVING PLATE MAKER) Lactate 0.6(L) 0.7 - 2.0 mmol/L [facility] Blood 05/10/2023 12:3 7 AM ENGRAVING PLATE MAKER 05/10/2023 12:47 AM ENGRAVING PLATE MAKER Alonzo Duncan MD LAB BLOOD ORDERABLES Fin al Result Performing Organization Address City/[facility] Co de Phone Number [facility] Department [place] [address] * Potassium, whole blood (05/10/2023 12:37 AM ENGRAVING PLATE MAKER) Potassium, bld 4.1 3.3 - 4.9 mmol/L [facility] Blood 05/10/2023 12:3 7 AM ENGRAVING PLATE MAKER 05/10/2023 12:40 AM ENGRAVING PLATE MAKER Anderson Tolentino Jr., TREE LAB BLOOD ORDERABLE S Edited Result - Final Performing Organization Address City/[facility]/ZIP Co de Phone Number [facility] [place] [address] * Type and screen (05/10/2023 12:37 AM ENGRAVING PLATE MAKER) ABO Rh A Positive Ellen, indirect Negative [facility] Blood 05/10/2023 12:3 7 AM ENGRAVING PLATE MAKER 05/10/2023 12:41 AM ENGRAVING PLATE MAKER Narrative [facility] - 05/10/2023 1:24 AM ENGRAVING PLATE MAKER Has the patient had Daratumumab or Isatuximab in the past 6 months?->Unknown Faustino Herrera MD LAB BLOOD BANK TEST ORDERA BLES Final Result Performing Organization Address [facility] Co de Phone Number [facility] [place] [address] * aPTT (05/10/2023 12:37 AM ENGRAVING PLATE MAKER) aPTT 32 28 - 38 sec [facility] Comment: Interpretive Data Heparin therapeutic range: 66.0 - 100.0 seconds. Range based on correlation with therapeutic heparin activity range of 0.3 - 0.7 Units/mL. Current interpretive data was last revised on 2023. Blood 05/10/2023 12:3 7 AM ENGRAVING PLATE MAKER 05/10/2023 12:53 AM ENGRAVING PLATE MAKER Faustino Herrera MD LAB BLOOD ORDERABLES Final Result [facility] [place] [address] * (ABNORMAL) Protime-INR (05/10/2023 12:37 AM ENGRAVING PLATE MAKER) Pathologist [facility] PT 15.8(H) 10.3 - 13.7 sec [facility] INR 1.39(H) 0.90 - 1.20 [facility] Comment: Interpretive data Oral anticoagulant therapeutic ranges: Venous thromboembolism prophylaxis or treatment: 2.0-3.0 CARDIOLOGY Standard range: 2.0-3.0 High-intensity range: 2.5-3.5 Refer to indication-specific guidelines for appropriate target ranges for prosthetic heart valve replacement. Current interpretive data was last revised on 2019. Blood 05/10/2023 12:3 7 AM ENGRAVING PLATE MAKER 05/10/2023 12:53 AM ENGRAVING PLATE MAKER Faustino Herrera MD LAB BLOOD ORDERABLES Final Result Performing Organization Address City/[facility]/[place] [address] * Phosphorus (05/10/2023 12:37 AM ENGRAVING PLATE MAKER) Pathologist [facility] Phosphorus, pl 3.2 2.3 - 4.5 mg/dL [facility] Blood 05/10/2023 12:3 7 AM ENGRAVING PLATE MAKER 05/10/2023 12:48 AM ENGRAVING PLATE MAKER Faustino Herrera MD LAB BLOOD ORDERABLES Final Result Performing Organization Address City/[facility] [place] [address] * (ABNORMAL) Magnesium (05/10/2023 12:37 AM ENGRAVING PLATE MAKER) Pathologist [facility] Magnesium 2.7(H) 1.4 - 2.5 mg/dL [facility] Blood 05/10/2023 12:3 7 AM ENGRAVING PLATE MAKER 05/10/2023 12:48 AM ENGRAVING PLATE MAKER Faustino Herrera MD LAB BLOOD ORDERABLES Final Result Performing Organization Address [facility] Co de Phone Number [facility] Department [place] [address] * (ABNORMAL) Basic metabolic panel (05/10/2023 12:37 AM ENGRAVING PLATE MAKER) [facility] Sodium 134(L) 135 - 145 mmol/L [facility] Potassium, pl 4.1 3.3 - 4.9 mmol/L [facility] Chloride 100 97 - 110 mmol/L [facility] CO2 23 22 - 32 mmol/L [facility] Anion gap 11 2 - 15 mmol/L [facility] BUN 18 6 - 25 mg/dL [facility] Creatinine 0.90 0.80 - 1.30 mg/dL [facility] Glucose 128 70 - 199 mg/dL [facility] Comment: Interpretive Data Fasting glucose [...] Calcium 9.1 8.5 - 10.3 mg/dL [facility] Blood 05/10/2023 12:3 7 AM ENGRAVING PLATE MAKER 05/10/2023 12:48 AM ENGRAVING PLATE MAKER Faustino Herrera MD LAB BLOOD ORDERABLES Final Result Performing Organization Address [facility] Co de Phone Number [facility] Department [place] [address] * (ABNORMAL) CBC without differential (05/10/2023 12:37 AM ENGRAVING PLATE MAKER) [facility] Signature WBC 18.7(H) 3.8 - 9.9 K/cumm [facility] Hgb 9.9(L) 13.0 - 17.5 g/dL [facility] Comment: Interpretive Data A reference range for this assay has not been established for patients with an unknown legal sex. Please refer to the laboratory test catalog for established sex-specific reference intervals. Current interpretive data was last revised on 2023. Hct 29.9(L) 38.9 - 50.3 % [facility] Comment: Interpretive Data A reference range for this assay has not been established for patients with an unknown legal sex. Please refer to the laboratory test catalog for established sex-specific reference intervals. Current interpretive data was last revised on 2023. Plt 390 150 - 400 K/cumm [facility] MPV 9.4 9.1 - 12.3 fL [facility] RBC 3.35(L) 4.30 - 5.80 M/cumm [facility] Comment: Interpretive Data A reference range for this assay has not been established for patients with an unknown legal sex. Please refer to the laboratory test catalog for established sex-specific reference intervals. Current interpretive data was last revised on 2023. MCV 89.3 81.3 - 96.4 fL [facility] MCH 29.6 27.1 - 33.3 pg [facility] MCHC 33.1 32.3 - 35.7 g/dL [facility] RDW CV 13.2 11.1 - 14.9 % [facility] RDW SD 43.5 35.7 - 48.1 fL [facility] NRBC abs 0.00 0.00 - 0.01 K/cumm [facility] Blood 05/10/2023 12:3 7 AM ENGRAVING PLATE MAKER 05/10/2023 12:48 AM ENGRAVING PLATE MAKER us Faustino Herrera MD LAB BLOOD ORDERABLES Final Result [facility] Department [place] [address] * POCT glucose (05/10/2023 12:16 AM ENGRAVING PLATE MAKER) Glucose, POC 129 70 - 199 mg/dL [facility] Blood 05/10/2023 12:1 6 AM ENGRAVING PLATE MAKER 05/10/2023 12:16 AM ENGRAVING PLATE MAKER us Faustino Herrera MD LAB POCT ORDERABLES - ROSIE CE Final Result Performing Organization Address [facility] [place] [address] * Oxyhemoglobin, central venous (05/09/2023 11:35 PM ENGRAVING PLATE MAKER) Oxyhemoglobin, CV 72.4 % [facility] Comment: Interpretive Data No reference range established. Current interpretive data was last revised 2019. Blood 05/09/2023 11:3 5 PM ENGRAVING PLATE MAKER 05/09/2023 11:45 PM ENGRAVING PLATE MAKER us Anderson Tolentino Jr., NP LAB BLOOD ORDERABLE S Final Result Performing Organization Address [facility] de Phone Number [facility] [place] [address] * XR Chest 1 View (05/09/2023 9:29 PM ENGRAVING PLATE MAKER) Anatomical Region Laterality Modality Body, Chest N/A Computed Radiogr aphy 05/10/2023 8:54 AM ENGRAVING PLATE MAKER Impressions 05/10/2023 6:37 PM ENGRAVING PLATE MAKER The current study is compared with the [...] Roldan Harrison M.D. Narrative 05/10/2023 6:37 PM ENGRAVING PLATE MAKER EXAMINATION: 1 view chest radiograph Procedure Note [...] * Potassium, whole blood (05/09/2023 8:16 PM ENGRAVING PLATE MAKER) Potassium, bld 4.3 3.3 - 4.9 mmol/L [facility] Blood 05/09/2023 8:16 PM ENGRAVING PLATE MAKER 05/09/2023 8:28 PM ENGRAVING PLATE MAKER Anderson Tolentino Jr., NP LAB BLOOD ORDERABLE S Final Result [facility] [place] [address] * Lidocaine level (05/09/2023 6:20 PM ENGRAVING PLATE MAKER) Lidocaine (Xylocaine) 3.7 1.5 - 5.0 mcg/mL [facility] Blood 05/09/2023 6:20 PM ENGRAVING PLATE MAKER 05/09/2023 6:35 PM ENGRAVING PLATE MAKER Faustino Herrera MD LAB BLOOD ORDERABLES Final Result [facility] [place] [address] * Critical Care (05/09/2023 3:58 PM ENGRAVING PLATE MAKER) Narrative Dalton Locke MD - 05/09/2023 3:58 PM ENGRAVING PLATE MAKER Dalton Locke MD ? 05/12/2023 ??4:14 PM [...] plan with the ICU team and other medical/jewelry consultant staff, making frequent assessments and decisions [...] * Potassium, whole blood (05/09/2023 12:54 PM ENGRAVING PLATE MAKER) Potassium, bld 4.2 3.3 - 4.9 mmol/L [facility] Blood 05/09/2023 12:5 4 PM ENGRAVING PLATE MAKER 05/09/2023 1:03 PM ENGRAVING PLATE MAKER Anderson Tolentino Jr., TREE LAB BLOOD ORDERABLE S Final Result Performing Organization Address City/[facility]/ZIP Co de Phone Number [facility] Department [place] [address] * Hepatic function panel (05/09/2023 12:54 PM ENGRAVING PLATE MAKER) [facility] Bilirubin, total 0.9 0.1 - 1.2 mg/dL [facility] Bilirubin, direct 0.3 0.1 - 0.3 mg/dL [facility] Protein, pl 8.3 6.5 - 8.5 g/dL [facility] Albumin 4.1 3.5 - 5.0 g/dL [facility] Alk phos 93 40 - 130 Units/L [facility] ALT 30 7 - 55 Units/L [facility] AST 35 10 - 50 Units/L [facility] Blood 05/09/2023 12:5 4 PM ENGRAVING PLATE MAKER 05/09/2023 1:07 PM ENGRAVING PLATE MAKER Faustino Herrera MD LAB BLOOD ORDERABLES Final Result [facility] Department [place] [address] * Lipase (05/09/2023 12:54 PM ENGRAVING PLATE MAKER) Pathologist [facility] Lipase 28 10 - 99 Units/L [facility] Blood 05/09/2023 12:5 4 PM ENGRAVING PLATE MAKER 05/09/2023 1:07 PM ENGRAVING PLATE MAKER Faustino Herrera MD LAB BLOOD ORDERABLES Final Result [facility] Department of Laboratories [place], [place] [id number] * US Vein Duplex Lower Extremity Bilateral Complete (05/09/2023 11:23 AM ENGRAVING PLATE MAKER) Anatomical Region Laterality Modality Vascular Bilateral Ultrasound 05/09/2023 9:31 AM ENGRAVING PLATE MAKER Narrative 05/09/2023 9:07 PM ENGRAVING PLATE MAKER [facility] [employer] - Department of Vascular Surgery, Vascular Laboratory [address] [place] [id number] Lower Extremity Venous Ultrasound Report Patient Name: ERIBERTO CHAU : 1990 (32y 11m) Study Date: 05/09/2023 9:31:37 AM Gender: M Tech: DC Location: [id number] Ref Provider: FAUSTINO HERRERA ?Quality: Adequate Order [...] and fever r/o DVT - FINDINGS: Performing Mechanical Handyman: Cheryle Soliz RVT, APPLE. Bilateral: Venous Doppler [...] above. Electronically Signed By: Pepe Gardner MD [facility] 2023-05-09 21:07:13 ENGRAVING PLATE MAKER Procedure Note Pepe Gardner MD - 05/09/2023 [facility] - Department of Vascular Surgery,Vascular Laboratory [address] [place] [id number] Lower Extremity Venous Ultrasound Report Patient Name: ERIBERTO CHAU : 1990 (32y 11m) Study Date: 05/09/2023 9:31:37 AM Gender: M Tech: DC Location: [id number] Ref Provider: FAUSTINO HERRERA Quality: Adequate Order Provider: FAUSTINO HERRERA PROCEDURES: Vascular Report: Venous Duplex imaging was performed bilaterally in the lower extremities.The common femoral, femoral, popliteal, posterior tibial, peroneal veins wereevaluated for patency, spontaneity and phasicity with Doppler, compression and augmentationmaneuvers. Great saphenous vein proximal at the junction was evaluated with compressionmaneuvers. INDICATIONS: post-op pain and fever r/o DVT - FINDINGS: Performing Mechanical Handyman: Cheryle Soliz RVT, RDMS. Bilateral: Venous Doppler [...] above. Electronically Signed By: Pepe Gardner MD [facility] 2023-05-09 21:07:13 ENGRAVING PLATE MAKER Faustino Herrera MD IMG US PROCEDURES Final Re sult * ECG 12 lead (05/09/2023 9:22 AM ENGRAVING PLATE MAKER) Pathologist [facility] Ventricular Rate EKG/Min 88 BPM [facility] Atrial Rate 88 BPM [facility] IL-Interval (MSEC) 154 ms [facility] QRS-Interval (MSEC) 96 ms [facility] QT-Interval (MSEC) 368 ms [facility] QTc 445 ms [facility] R [place] 189 degrees [facility] T [place] 146 degrees [facility] Diagnosis Normal sinus rhythm Suspect limb lead reversal,inter pretation assumes reversal T wave abnormality, consider lateral ischemia Abnormal ECG When compared with ECG of 07-MAY-2023 18:46, (unconfirmed) leads misplaced Nonspecific T wave abnormality has replaced inverted T waves in Inferior leads Confirmed by ROSY AMARO M.D ([id number]) on 05/10/2023 9:41:27 AM [facility] 05/09/2023 9:22 AM ENGRAVING PLATE MAKER 05/10/2023 9:41 AM ENGRAVING PLATE MAKER Marina Cordova NP ECG ORDERABLES Final Resu lt [facility] * Potassium, whole blood (05/09/2023 8:04 AM ENGRAVING PLATE MAKER) [facility] Potassium, bld 4.1 3.3 - 4.9 mmol/L [facility] Blood 05/09/2023 8:04 AM ENGRAVING PLATE MAKER 05/09/2023 8:12 AM ENGRAVING PLATE MAKER Anderson Tolentino Jr. BUSINESS PROCESS ARCHITECT LAB BLOOD ORDERABLE S Final Result [facility] Department [place] [address] * (ABNORMAL) POC Blood Gas and Chemistries, Arterial - (05/09/2023 6:22 AM ENGRAVING PLATE MAKER) pH, Art POC 7.36 7.35 - 7.45 [facility] pCO2, Art POC 35 35 - 45 mmHg [facility] pO2, Art POC 103 83 - 108 mmHg [facility] Na, POC 139 135 - 145 mmol/L [facility] K POC 4.4 3.3 - 4.9 mmol/L [facility] Comment: Interpretive Data This method is not able to assess for hemolysis, which may falsely increase potassium concentrations. If further testing is needed to evaluate this result, consider in-laboratory plasma potassium. Current Interpretive Data was last revised on 2022. Cl, POC 109 97 - 110 mmol/L [facility] Ionized Ca, POC 4.82 4.50 - 5.10 mg/dL [facility] Glucose, POC 136 70 - 199 mg/dL [facility] Lactate, POC 0.5(L) 0.7 - 2.2 mmol/L [facility] SO2 (natalia) arterial 99(H) 90 - 95 % [facility] Base excess, POC -5.1 mmol/L [facility] HCO3, Art POC 20 20 - 30 mmol/L [facility] Hct, POC 31.0(L) 41.4 - 51.6 % [facility] O2 Sat, Art POC (Calc) 98 % [facility] Total Hb, POC 10.2(L) 13.8 - 17.2 g/dL [facility] Blood 05/09/2023 6:22 AM ENGRAVING PLATE MAKER 05/09/2023 6:22 AM ENGRAVING PLATE MAKER us Faustino Herrera MD LAB POCT ORDERABLES - ROSIE CE Final Result [facility] Department [place] [address] * Potassium, whole blood (05/09/2023 12:36 AM ENGRAVING PLATE MAKER) Pathologist [facility] Potassium, bld 3.9 3.3 - 4.9 mmol/L [facility] Blood 05/09/2023 12:3 6 AM ENGRAVING PLATE MAKER 05/09/2023 12:43 AM ENGRAVING PLATE MAKER us Andreson Tolentino Jr., TREE LAB BLOOD ORDERABLE S Final Result Performing Organization Address [facility] de Phone Number [facility] [place] [address] * (ABNORMAL) Blood gas, arterial (05/09/2023 12:36 AM ENGRAVING PLATE MAKER) Pathologist [facility] pH, Art 7.39 7.35 - 7.45 [facility] PCO2, Arterial 29(L) 35 - 45 mmHg [facility] PO2, Arterial 108 83 - 108 mmHg [facility] HCO3 Art (Calculated) 18(L) 20 - 30 mmol/L [facility] BE, art -6 mmol/L [facility] Comment: Interpretive Data No Reference Range Established Current Interpretive Data was last revised on 2017 O2 Sat Art (Measured) 98(H) 90 - 95 % [facility] Blood 05/09/2023 12:3 6 AM ENGRAVING PLATE MAKER 05/09/2023 12:43 AM ENGRAVING PLATE MAKER us Faustino Herrera MD LAB BLOOD ORDERABLES Final Result Performing Organization Address [facility] de Phone Number [facility] Department [place] [address] * eGFR (05/09/2023 12:35 AM ENGRAVING PLATE MAKER) [facility] eGFR >90 >=60 mL/min/1. 73 m2 [facility] Comment: Interpretive Data Reference Interval [...] reviewed 2021. Blood 05/09/2023 12:3 5 AM ENGRAVING PLATE MAKER 05/09/2023 12:56 AM ENGRAVING PLATE MAKER us Alonzo Duncan MD LAB BLOOD ORDERABLES [facility] al Result Performing Organization Address City/State/[facility] Co de Phone Number [facility] [place] [address] * (ABNORMAL) Triglycerides (05/09/2023 12:35 AM ENGRAVING PLATE MAKER) Pathologist [facility] Triglycerides 533(H) <=149 mg/dL [facility] Comment: Hemolyzed; result may be falsely [...] on 2018. Blood 05/09/2023 12:3 5 AM ENGRAVING PLATE MAKER 05/09/2023 12:56 AM ENGRAVING PLATE MAKER Faustino Herrera MD LAB BLOOD ORDERABLES Final Result Performing Organization Address [facility] de Phone Number [facility] [place] [address] * aPTT (05/09/2023 12:35 AM ENGRAVING PLATE MAKER) aPTT 33 28 - 38 sec [facility] Comment: Interpretive Data Heparin therapeutic range: 66.0 - 100.0 seconds. Range based on correlation with therapeutic heparin activity range of 0.3 - 0.7 Units/mL. Current interpretive data was last revised on 2023. Blood 05/09/2023 12:3 5 AM ENGRAVING PLATE MAKER 05/09/2023 12:54 AM ENGRAVING PLATE MAKER Faustino Herrera MD LAB BLOOD ORDERABLES Final Result Performing Organization Address [facility] [place] [address] * (ABNORMAL) Protime-INR (05/09/2023 12:35 AM ENGRAVING PLATE MAKER) PT 14.3(H) 10.3 - 13.7 sec [facility] INR 1.25(H) 0.90 - 1.20 [facility] Comment: Interpretive data Oral anticoagulant therapeutic ranges: Venous thromboembolism prophylaxis or treatment: 2.0-3.0 CARDIOLOGY Standard range: 2.0-3.0 High-intensity range: 2.5-3.5 Refer to indication-specific guidelines for appropriate target ranges for prosthetic heart valve replacement. Current interpretive data was last revised on 2019. Blood 05/09/2023 12:3 5 AM ENGRAVING PLATE MAKER 05/09/2023 12:54 AM ENGRAVING PLATE MAKER Faustino Herrera MD LAB BLOOD ORDERABLES Final Result Performing Organization Address [facility] de Phone Number [facility] [place] [address] * Phosphorus (05/09/2023 12:35 AM ENGRAVING PLATE MAKER) Pathologist [facility] Phosphorus, pl 2.8 2.3 - 4.5 mg/dL [facility] Comment:Hemolyzed; result ma y be falsely elevated Blood 05/09/2023 12:3 5 AM ENGRAVING PLATE MAKER 05/09/2023 12:56 AM ENGRAVING PLATE MAKER Faustino Herrera MD LAB BLOOD ORDERABLES Final Result Performing Organization Address [facility] de Phone Number [facility] [place] [place] [address] * (ABNORMAL) Magnesium (05/09/2023 12:35 AM ENGRAVING PLATE MAKER) [facility] Magnesium 2.7(H) 1.4 - 2.5 mg/dL [facility] Blood 05/09/2023 12:3 5 AM ENGRAVING PLATE MAKER 05/09/2023 12:56 AM ENGRAVING PLATE MAKER Faustino Herrera MD LAB BLOOD ORDERABLES Final Result Performing Organization Address [facility] de Phone Number [facility] [place] [address] * (ABNORMAL) Basic metabolic panel (05/09/2023 12:35 AM ENGRAVING PLATE MAKER) Pathologist [facility] Sodium 134(L) 135 - 145 mmol/L [facility] Potassium, pl See Comment 3.3 - 4.9 mmol/L [facility] Comment:Credited; Hemolyzed Specimen Chloride 104 97 - 110 mmol/L [facility] CO2 20(L) 22 - 32 mmol/L [facility] Anion gap 10 2 - 15 mmol/L [facility] BUN 17 6 - 25 mg/dL [facility] Creatinine 0.86 0.80 - 1.30 mg/dL [facility] Glucose 142 70 - 199 mg/dL [facility] Comment: Interpretive Data Fasting glucose [...] Calcium 8.5 8.5 - 10.3 mg/dL [facility] Blood 05/09/2023 12:3 5 AM ENGRAVING PLATE MAKER 05/09/2023 12:56 AM ENGRAVING PLATE MAKER Faustino Herrera MD LAB BLOOD ORDERABLES Final Result [facility] Department [place] [address] * (ABNORMAL) CBC without differential (05/09/2023 12:35 AM ENGRAVING PLATE MAKER) [facility] WBC 14.9(H) 3.8 - 9.9 K/cumm [facility] Hgb 10.1(L) 13.0 - 17.5 g/dL [facility] Comment: Interpretive Data A reference range for this assay has not been established for patients with an unknown legal sex. Please refer to the laboratory test catalog for established sex-specific reference intervals. Current interpretive data was last revised on 2023. Hct 30.1(L) 38.9 - 50.3 % [facility] Comment: Interpretive Data A reference range for this assay has not been established for patients with an unknown legal sex. Please refer to the laboratory test catalog for established sex-specific reference intervals. Current interpretive data was last revised on 2023. Plt 274 150 - 400 K/cumm [facility] MPV 9.4 9.1 - 12.3 fL [facility] RBC 3.32(L) 4.30 - 5.80 M/cumm [facility] Comment: Interpretive Data A reference range for this assay has not been established for patients with an unknown legal sex. Please refer to the laboratory test catalog for established sex-specific reference intervals. Current interpretive data was last revised on 2023. MCV 90.7 81.3 - 96.4 fL [facility] MCH 30.4 27.1 - 33.3 pg [facility] MCHC 33.6 32.3 - 35.7 g/dL [facility] RDW CV 13.2 11.1 - 14.9 % [facility] RDW SD 43.9 35.7 - 48.1 fL [facility] NRBC abs 0.02(H) 0.00 - 0.01 K/cumm [facility] Blood 05/09/2023 12:3 5 AM ENGRAVING PLATE MAKER 05/09/2023 12:56 AM ENGRAVING PLATE MAKER Faustino Herrera MD LAB BLOOD ORDERABLES Final Result [facility] [place] [address] * XR Chest 1 View (05/08/2023 7:59 PM ENGRAVING PLATE MAKER) Anatomical Region Laterality Modality Body, Chest N/A Digital Radiogra phy 05/09/2023 8:48 AM ENGRAVING PLATE MAKER Impressions 05/09/2023 11:38 AM ENGRAVING PLATE MAKER The current study is compared with the prior radiograph dated 05/07/2023. 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 ??Right internal jugular central venous catheter terminates at the superior cavoatrial junction. The cardiomediastinal silhouette is stable. ??Small lung volumes. ??No consolidation or pulmonary edema. ??No pleural effusion, though the right costophrenic angle is excluded from the [id number]. ??No pneumothorax. ?? Dictated by: Chris Turner MD The radiology attending physician has personally reviewed this study, and had reviewed and/or edited this written report and agrees with it. Electronically signed by: Hipolito Mobley M.D. Narrative 05/09/2023 11:38 [address] ENGRAVING PLATE MAKER EXAMINATION: 1 view chest radiograph Procedure Note [...] right costophrenic angle is excluded from the [id number]. No pneumothorax. Dictated by: Chris Turner MD The radiology attending physician has personally reviewed this study, and had reviewed and/or edited this written report and agrees with it. Electronically signed by: Hipolito Mobley M.D. Faustino Herrera MD IMG XR PROCEDURES Final Re sult * (ABNORMAL) POC Blood Gas and Chemistries, Arterial - (05/08/2023 7:25 PM ENGRAVING PLATE MAKER) [facility] pH, Art POC 7.44 7.35 - 7.45 [facility] pCO2, Art POC 28(L) 35 - 45 mmHg [facility] pO2, Art POC 83 83 - 108 mmHg [facility] Na, POC 135 135 - 145 mmol/L [facility] K POC 4.0 3.3 - 4.9 mmol/L [facility] Comment: Interpretive Data This method is not able to assess for hemolysis, which may falsely increase potassium concentrations. If further testing is needed to evaluate this result, consider in-laboratory plasma potassium. Current Interpretive Data was last revised on 2022. Cl, POC 106 97 - 110 mmol/L [facility] Ionized Ca, POC 4.58 4.50 - 5.10 mg/dL [facility] Glucose, POC 143 70 - 199 mg/dL [facility] Lactate, POC 0.8 0.7 - 2.2 mmol/L [facility] SO2 (natalia) arterial 98(H) 90 - 95 % [facility] Base excess, POC -4.1 mmol/L [facility] HCO3, Art POC 19(L) 20 - 30 mmol/L [facility] Hct, POC 34.0(L) 41.4 - 51.6 % [facility] O2 Sat, Art POC (Calc) 97 % [facility] Total Hb, POC 11.2(L) 13.8 - 17.2 g/dL [facility] Blood 05/08/2023 7:25 PM ENGRAVING PLATE MAKER 05/08/2023 7:25 PM ENGRAVING PLATE MAKER Faustino Herrera MD LAB POCT ORDERABLES - ROSIE CE Final Result [facility] [place] [address] * Potassium, whole blood (05/08/2023 5:39 PM ENGRAVING PLATE MAKER) [facility] Potassium, bld 4.1 3.3 - 4.9 mmol/L [facility] Blood 05/08/2023 5:39 PM ENGRAVING PLATE MAKER 05/08/2023 5:49 PM ENGRAVING PLATE MAKER us Anderson Tolentino Jr., TERE LAB BLOOD ORDERABLE S Final Result [facility] [place] [address] * Lidocaine level (05/08/2023 5:39 PM ENGRAVING PLATE MAKER) Pathologist [facility] Lidocaine (Xylocaine) 4.6 1.5 - 5.0 mcg/mL [facility] Blood 05/08/2023 5:39 PM ENGRAVING PLATE MAKER 05/08/2023 5:49 PM ENGRAVING PLATE MAKER Narrative [facility] - 05/08/2023 6:23 PM ENGRAVING PLATE MAKER Draw 24 hours after infusion started. us Faustino Herrera MD LAB BLOOD ORDERABLES Final Result [facility] [place] [address] * Critical Care (05/08/2023 2:53 PM ENGRAVING PLATE MAKER) Narrative Dalton Locke MD - 05/08/2023 2:53 PM ENGRAVING PLATE MAKER Dalton Locke MD ? 05/08/2023 ??2:57 PM [...] plan with the ICU team and other medical/jewelry consultant staff, making frequent assessments and decisions [...] * Potassium, whole blood (05/08/2023 11:44 AM ENGRAVING PLATE MAKER) Potassium, bld 4.5 3.3 - 4.9 mmol/L [facility] Comment:Hemolyzed; results m ay be falsely elevated. Blood 05/08/2023 11:4 4 AM ENGRAVING PLATE MAKER 05/08/2023 12:02 PM ENGRAVING PLATE MAKER Anderson Tolentino Jr., TREE LAB BLOOD ORDERABLE S Final Result Performing Organization Address [facility] Co de Phone Number [facility] [place] [address] * Potassium, whole blood (05/08/2023 8:02 AM ENGRAVING PLATE MAKER) Potassium, bld 4.1 3.3 - 4.9 mmol/L [facility] Blood 05/08/2023 8:02 AM ENGRAVING PLATE MAKER 05/08/2023 8:09 AM ENGRAVING PLATE MAKER Anderson Tolentino Jr., NP LAB BLOOD ORDERABLE S Final Result [facility] [place] [address] * (ABNORMAL) Blood gas, arterial (05/08/2023 8:[address] ENGRAVING PLATE MAKER) pH, Art 7.36 7.35 - 7.45 [facility] PCO2, Arterial 34(L) 35 - 45 mmHg [facility] PO2, Arterial 89 83 - 108 mmHg [facility] HCO3 Art (Calculated) 19(L) 20 - 30 mmol/L [facility] BE, art -6 mmol/L [facility] Comment: Interpretive Data No Reference Range Established Current Interpretive Data was last revised on 2017 O2 Sat Art (Measured) 97(H) 90 - 95 % [facility] Blood 05/08/2023 8:02 AM ENGRAVING PLATE MAKER 05/08/2023 8:09 AM ENGRAVING PLATE MAKER us Faustino Herrera MD LAB BLOOD ORDERABLES Final Result [facility] [place] [address] * eGFR (05/08/2023 1:08 AM ENGRAVING PLATE MAKER) eGFR >90 >=60 mL/min/1. 73 m2 [facility] [...] last reviewed 2021. Blood 05/08/2023 1:08 AM ENGRAVING PLATE MAKER 05/08/2023 1:24 AM ENGRAVING PLATE MAKER us Alonzo Duncan MD LAB BLOOD ORDERABLES Fin al Result [facility] [place] [address] * (ABNORMAL) Blood gas, arterial (05/08/2023 1:08 AM ENGRAVING PLATE MAKER) pH, Art 7.37 7.35 - 7.45 [facility] PCO2, Arterial 32(L) 35 - 45 mmHg [facility] PO2, Arterial 151(H) 83 - 108 mmHg [facility] HCO3 Art (Calculated) 19(L) 20 - 30 mmol/L [facility] BE, art -6 mmol/L [facility] Comment: Interpretive Data No Reference Range Established Current Interpretive Data was last revised on 2017 O2 Sat Art (Measured) 99(H) 90 - 95 % [facility] Blood 05/08/2023 1:08 AM ENGRAVING PLATE MAKER 05/08/2023 1:21 AM ENGRAVING PLATE MAKER us Faustino Herrera MD LAB BLOOD ORDERABLES Final Result Performing Organization Address [facility] [place] [address] * Potassium, whole blood (05/08/2023 1:08 AM ENGRAVING PLATE MAKER) Potassium, bld 4.8 3.3 - 4.9 mmol/L [facility] Blood 05/08/2023 1:08 AM ENGRAVING PLATE MAKER 05/08/2023 1:21 AM ENGRAVING PLATE MAKER us Anderson Tolentino Jr., BUSINESS PROCESS ARCHITECT LAB BLOOD ORDERABLE S Final Result Performing Organization Address City/[facility] Co de Phone Number [facility] [place] [address] * aPTT (05/08/2023 1:08 AM ENGRAVING PLATE MAKER) aPTT 35 28 - 38 sec [facility] Comment: Interpretive Data Heparin therapeutic range: 66.0 - 100.0 seconds. Range based on correlation with therapeutic heparin activity range of 0.3 - 0.7 Units/mL. Current interpretive data was last revised on 2023. Blood 05/08/2023 1:08 AM ENGRAVING PLATE MAKER 05/08/2023 1:40 AM ENGRAVING PLATE MAKER Faustino Herrera MD LAB BLOOD ORDERABLES Final Result Performing Organization Address [facility] de Phone Number [facility] [place] [address] * (ABNORMAL) Protime-INR (05/08/2023 1:08 AM ENGRAVING PLATE MAKER) Pathologist [facility] PT 14.2(H) 10.3 - 13.7 sec [facility] INR 1.25(H) 0.90 - 1.20 [facility] Comment: Interpretive data Oral anticoagulant therapeutic ranges: Venous thromboembolism prophylaxis or treatment: 2.0-3.0 CARDIOLOGY Standard range: 2.0-3.0 High-intensity range: 2.5-3.5 Refer to indication-specific guidelines for appropriate target ranges for prosthetic heart valve replacement. Current interpretive data was last revised on 2019. Blood 05/08/2023 1:08 AM ENGRAVING PLATE MAKER 05/08/2023 1:40 AM ENGRAVING PLATE MAKER Faustino Herrera MD LAB BLOOD ORDERABLES Final Result Performing Organization Address City/[facility] de Phone Number [facility] [place] [address] * Phosphorus (05/08/2023 1:08 AM ENGRAVING PLATE MAKER) Phosphorus, pl 3.6 2.3 - 4.5 mg/dL [facility] Blood 05/08/2023 1:08 AM ENGRAVING PLATE MAKER 05/08/2023 1:24 AM ENGRAVING PLATE MAKER Faustino Herrera MD LAB BLOOD ORDERABLES Final Result Performing Organization Address City/[facility]/ZIP Co de Phone Number [facility] [place] [address] * (ABNORMAL) Magnesium (05/08/2023 1:08 AM ENGRAVING PLATE MAKER) [facility] Magnesium 2.6(H) 1.4 - 2.5 mg/dL [facility] Blood 05/08/2023 1:08 AM ENGRAVING PLATE MAKER 05/08/2023 1:24 AM ENGRAVING PLATE MAKER Faustino Herrera MD LAB BLOOD ORDERABLES Final Result Performing Organization Address [facility] de Phone Number [facility] [place] [address] * (ABNORMAL) Basic metabolic panel (05/08/2023 1:08 AM ENGRAVING PLATE MAKER) [facility] Sodium 134(L) 135 - 145 mmol/L [facility] Potassium, pl 4.9 3.3 - 4.9 mmol/L [facility] Chloride 104 97 - 110 mmol/L [facility] CO2 19(L) 22 - 32 mmol/L [facility] Anion gap 11 2 - 15 mmol/L [facility] BUN 18 6 - 25 mg/dL [facility] Creatinine 1.04 0.80 - 1.30 mg/dL [facility] Glucose 114 70 - 199 mg/dL [facility] Comment: Interpretive Data Fasting glucose [...] Calcium 8.8 8.5 - 10.3 mg/dL [facility] Blood 05/08/2023 1:08 AM ENGRAVING PLATE MAKER 05/08/2023 1:24 AM ENGRAVING PLATE MAKER Faustino Herrera MD LAB BLOOD ORDERABLES Final Result [facility] [place] [address] * (ABNORMAL) CBC without differential (05/08/2023 1:08 AM ENGRAVING PLATE MAKER) WBC 14.2(H) 3.8 - 9.9 K/cumm [facility] Hgb 9.9(L) 13.0 - 17.5 g/dL [facility] Comment: Interpretive Data A reference range for this assay has not been established for patients with an unknown legal sex. Please refer to the laboratory test catalog for established sex-specific reference intervals. Current interpretive data was last revised on 2023. Hct 29.9(L) 38.9 - 50.3 % [facility] Comment: Interpretive Data A reference range for this assay has not been established for patients with an unknown legal sex. Please refer to the laboratory test catalog for established sex-specific reference intervals. Current interpretive data was last revised on 2023. Plt 298 150 - 400 K/cumm [facility] MPV 9.6 9.1 - 12.3 fL [facility] RBC 3.29(L) 4.30 - 5.80 M/cumm [facility] Comment: Interpretive Data A reference range for this assay has not been established for patients with an unknown legal sex. Please refer to the laboratory test catalog for established sex-specific reference intervals. Current interpretive data was last revised on 2023. MCV 90.9 81.3 - 96.4 fL [facility] MCH 30.1 27.1 - 33.3 pg [facility] MCHC 33.1 32.3 - 35.7 g/dL [facility] RDW CV 13.3 11.1 - 14.9 % [facility] RDW SD 45.0 35.7 - 48.1 fL [facility] NRBC abs 0.00 0.00 - 0.01 K/cumm [facility] Blood 05/08/2023 1:08 AM ENGRAVING PLATE MAKER 05/08/2023 1:24 AM ENGRAVING PLATE MAKER Faustino Herrera MD LAB BLOOD ORDERABLES Final Result [facility] [place] [address] * (ABNORMAL) POC Blood Gas and Chemistries, Arterial - (05/07/2023 8:40 PM ENGRAVING PLATE MAKER) pH, Art POC 7.34(L) 7.35 - 7.45 [facility] pCO2, Art POC 38 35 - 45 mmHg [facility] pO2, Art POC 79(L) 83 - 108 mmHg [facility] Na, POC 134(L) 135 - 145 mmol/L [facility] K POC 4.1 3.3 - 4.9 mmol/L [facility] Comment: Interpretive Data This method is not able to assess for hemolysis, which may falsely increase potassium concentrations. If further testing is needed to evaluate this result, consider in-laboratory plasma potassium. Current Interpretive Data was last revised on 2022. Cl, POC 104 97 - 110 mmol/L [facility] Ionized Ca, POC 4.92 4.50 - 5.10 mg/dL [facility] Glucose, POC 118 70 - 199 mg/dL [facility] Lactate, POC 0.6(L) 0.7 - 2.2 mmol/L [facility] SO2 (natalia) arterial 96(H) 90 - 95 % [facility] Base excess, POC -4.8 mmol/L [facility] HCO3, Art POC 20 20 - 30 mmol/L [facility] Hct, POC 36.0(L) 41.4 - 51.6 % [facility] O2 Sat, Art POC (Calc) 95 % [facility] Total Hb, POC 11.9(L) 13.8 - 17.2 g/dL [facility] Blood 05/07/2023 8:40 PM ENGRAVING PLATE MAKER 05/07/2023 8:40 PM ENGRAVING PLATE MAKER Faustino Herrera MD LAB POCT ORDERABLES - ROSIE CE Final Result Performing Organization Address [facility] de Phone Number [facility] [place] [address] * Troponin I high-sensitivity 2-hour (05/07/2023 8:36 PM ENGRAVING PLATE MAKER) Trop I hs 27 <=35 ng/L [facility] Comment: Interpretive Data For further hscTnI resources including the diagnostic algorithm and an aid in interpretation, copy and paste this link: [email or web address].[email or web address]/[email or web address] Current Interpretive Data last revised 2019. Trop I hs delta -2 ng/L [facility] Trop I hs interp Insignificant [facility] Blood 05/07/2023 8:36 PM ENGRAVING PLATE MAKER 05/07/2023 8:52 PM ENGRAVING PLATE MAKER Faustino Herrera MD LAB BLOOD ORDERABLES Final Result Performing Organization Address [facility] Co de Phone Number [facility] [place] [address] * XR Chest 1 View (05/07/2023 8:26 PM ENGRAVING PLATE MAKER) Anatomical Region Laterality Modality Body, Chest N/A Computed Radiogr aphy 05/08/2023 8:14 AM ENGRAVING PLATE MAKER Impressions 05/08/2023 8:14 AM ENGRAVING PLATE MAKER Comparison is made to radiograph of 05/06/2023 [...] Aaron Schafer M.D. Narrative 05/08/2023 8:14 AM ENGRAVING PLATE MAKER EXAMINATION: 2 serial 1 view chest radiograph [...] * ECG 12 lead (05/07/2023 6:46 PM ENGRAVING PLATE MAKER) Ventricular Rate EKG/Min 80 BPM [facility] Atrial Rate 80 BPM [facility] [place]-Interval (MSEC) 158 ms [facility] QRS-Interval (MSEC) 94 ms [facility] QT-Interval (MSEC) 372 ms [facility] QTc 429 ms [facility] P [place] 33 degrees [facility] R [place] -4 degrees [facility] H[facility] T [place] -62 degrees [facility] Diagnosis Normal sinus rhythm Possible Left atrial enlargement Left ventricular hypertrophy with repolarization abnormality ( R in aVL , Keith product ) Abnormal ECG When compared with ECG of 05-MAY-2023 18:56, (unconfirmed) No significant change was found Confirmed by ROSY AMARO M.D ([id number]) on 05/09/2023 9:45:33 AM [facility] 05/07/2023 6:46 PM ENGRAVING PLATE MAKER 05/09/2023 9:45 AM ENGRAVING PLATE MAKER Faustino Herrera MD ECG ORDERABLES Final Resu lt Performing Organization Address City/[facility] Co de Phone Number [facility] * Troponin I high-sensitivity series (baseline, 2hr, 4hr, 6hr) (05/07/2023 6:15 PM ENGRAVING PLATE MAKER) Pathologist [facility] Trop I hs 29 <=35 ng/L [facility] Comment: Interpretive Data For further hscTnI resources including the diagnostic algorithm and an aid in interpretation, copy and paste this link: [email or web address]/[email or web address] Current Interpretive Data last revised 2019. Blood 05/07/2023 6:15 PM ENGRAVING PLATE MAKER 05/07/2023 6:48 PM ENGRAVING PLATE MAKER Faustino Herrera MD LAB BLOOD ORDERABLES Final Result Performing Organization Address City/[facility] Co de Phone Number [facility] Department [place] [address] * Potassium, whole blood (05/07/2023 5:57 PM ENGRAVING PLATE MAKER) Pathologist [facility] Potassium, bld 4.2 3.3 - 4.9 mmol/L [facility] Blood 05/07/2023 5:57 PM ENGRAVING PLATE MAKER 05/07/2023 6:05 PM ENGRAVING PLATE MAKER Result [facility] Anderson Tolentino Jr., BUSINESS PROCESS ARCHITECT LAB BLOOD ORDERABLE S Final Result Performing Organization Address [facility] Co de Phone Number JAIRON [facility] [place] [address] * (ABNORMAL) Blood gas, arterial (05/07/2023 5:57 PM ENGRAVING PLATE MAKER) pH, Art 7.47(H) 7.35 - 7.45 [facility] PCO2, Arterial 27(L) 35 - 45 mmHg [facility] PO2, Arterial 154(H) 83 - 108 mmHg [facility] HCO3 Art (Calculated) 20 20 - 30 mmol/L [facility] BE, art -3 mmol/L [facility] Comment: Interpretive Data No Reference Range Established Current Interpretive Data was last revised on 2017 O2 Sat Art (Measured) 100(H) 90 - 95 % [facility] Blood 05/07/2023 5:57 PM ENGRAVING PLATE MAKER 05/07/2023 6:05 PM ENGRAVING PLATE MAKER us Faustino Herrera MD LAB BLOOD ORDERABLES Final Result Performing Organization Address [facility] Co de Phone Number [facility] [place] [address] * XR Chest 1 View (05/07/2023 4:07 PM ENGRAVING PLATE MAKER) Anatomical Region Laterality Modality Body, Chest N/A Computed Radiogr aphy 05/08/2023 8:14 AM ENGRAVING PLATE MAKER Impressions 05/08/2023 8:14 AM ENGRAVING PLATE MAKER Comparison is made to radiograph of 05/06/2023 [...] Aaron Schafer M.D. Narrative 05/08/2023 8:14 AM ENGRAVING PLATE MAKER EXAMINATION: 2 serial 1 view chest radiograph [...] and Chemistries, Arterial - (05/07/2023 3:57 PM ENGRAVING PLATE MAKER) pH, Art POC 7.41 7.35 - 7.45 [facility] pCO2, Art POC 35 35 - 45 mmHg [facility] pO2, Art POC 60(L) 83 - 108 mmHg [facility] Na, POC 136 135 - 145 mmol/L [facility] K POC 3.8 3.3 - 4.9 mmol/L [facility] Comment: Interpretive Data This method is not able to assess for hemolysis, which may falsely increase potassium concentrations. If further testing is needed to evaluate this result, consider in-laboratory plasma potassium. Current Interpretive Data was last revised on 2022. Cl, POC 104 97 - 110 mmol/L [facility] Ionized Ca, POC 5.07 4.50 - 5.10 mg/dL [facility] Glucose, POC 116 70 - 199 mg/dL [facility] Lactate, POC 0.9 0.7 - 2.2 mmol/L [facility] SO2 (natalia) arterial 91 90 - 95 % [facility] Base excess, POC -2.0 mmol/L [facility] HCO3, Art POC 22 20 - 30 mmol/L [facility] Hct, POC 31.0(L) 41.4 - 51.6 % [facility] O2 Sat, Art POC (Calc) 91 % [facility] Total Hb, POC 10.4(L) 13.8 - 17.2 g/dL [facility] Blood 05/07/2023 3:57 PM ENGRAVING PLATE MAKER 05/07/2023 3:57 PM ENGRAVING PLATE MAKER us Faustino Herrera MD LAB POCT ORDERABLES - ROSIE CE Final Result [facility] Department [place] [address] * Critical Care (05/07/2023 2:55 PM ENGRAVING PLATE MAKER) Narrative Dalton Locke MD - 05/07/2023 2:55 PM ENGRAVING PLATE MAKER Dalton Locke MD ? 05/08/2023 ??2:57 PM [...] plan with the ICU team and other medical/jewelry consultant staff, making frequent assessments and decisions [...] * Potassium, whole blood (05/07/2023 2:42 PM ENGRAVING PLATE MAKER) [facility] Potassium, bld 3.5 3.3 - 4.9 mmol/L [facility] Blood 05/07/2023 2:42 PM ENGRAVING PLATE MAKER 05/07/2023 2:48 PM ENGRAVING PLATE MAKER us Anderson Tolentino Jr., TREE LAB BLOOD ORDERABLE S Final Result [facility] Department [place] [address] * (ABNORMAL) Blood gas, arterial (05/07/2023 2:42 PM ENGRAVING PLATE MAKER) Pathologist [facility] pH, Art 7.41 7.35 - 7.45 [facility] PCO2, Arterial 37 35 - 45 mmHg [facility] PO2, Arterial 65(L) 83 - 108 mmHg [facility] HCO3 Art (Calculated) 24 20 - 30 mmol/L [facility] BE, art -1 mmol/L [facility] Comment: Interpretive Data No Reference Range Established Current Interpretive Data was last revised on 2017 O2 Sat Art (Measured) 92 90 - 95 % [facility] Blood 05/07/2023 2:42 PM ENGRAVING PLATE MAKER 05/07/2023 2:48 PM ENGRAVING PLATE MAKER us Faustino Herrera MD LAB BLOOD ORDERABLES Final Result [facility] [place] [address] * [place] ARTL CATHJ/CANNULJ MNTR/TRANSFUSION SPX PRQ (05/07/2023 1:42 PM ENGRAVING PLATE MAKER) Narrative Dalton Locke MD - 05/07/2023 1:42 PM ENGRAVING PLATE MAKER Thea Rizzo MD ? 05/07/2023 ??1:51 PM Arterial Line Insertion Date/Time: 05/07/2023 1:42 PM Performed by: Thea Rizzo MD Authorized by: Thea Rizzo MD ?? 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 Range based on correlation with therapeutic heparin activity range of 0.3 - 0.7 Units/mL. Current interpretive data was last revised on 2023. Blood 05/07/2023 10:3 7 AM ENGRAVING PLATE MAKER 05/07/2023 10:46 AM ENGRAVING PLATE MAKER Faustino Herrera MD LAB BLOOD ORDERABLES Final Result [facility] [place] [address] * (ABNORMAL) Protime-INR (05/07/2023 10:37 AM ENGRAVING PLATE MAKER) PT 14.6(H) 10.3 - 13.7 sec [facility] INR 1.28(H) 0.90 - 1.20 [facility] Comment: Interpretive data Oral anticoagulant therapeutic ranges: Venous thromboembolism prophylaxis or treatment: 2.0-3.0 CARDIOLOGY Standard range: 2.0-3.0 High-intensity range: 2.5-3.5 Refer to indication-specific guidelines for appropriate target ranges for prosthetic heart valve replacement. Current interpretive data was last revised on 2019. Blood 05/07/2023 10:3 7 AM ENGRAVING PLATE MAKER 05/07/2023 10:46 AM ENGRAVING PLATE MAKER Faustino Herrera MD LAB BLOOD ORDERABLES Final Result [facility] Department [place] [address] * (ABNORMAL) Blood gas, arterial (05/07/2023 6:13 AM ENGRAVING PLATE MAKER) [facility] pH, Art 7.48(H) 7.35 - 7.45 [facility] PCO2, Arterial 38 35 - 45 mmHg [facility] PO2, Arterial 162(H) 83 - 108 mmHg [facility] HCO3 Art (Calculated) 29 20 - 30 mmol/L [facility] BE, art 5 mmol/L [facility] Comment: Interpretive Data No Reference Range Established Current Interpretive Data was last revised on 2017 O2 Sat Art (Measured) 100(H) 90 - 95 % [facility] Blood 05/07/2023 6:13 AM ENGRAVING PLATE MAKER 05/07/2023 6:26 AM ENGRAVING PLATE MAKER Faustino Herrrea MD LAB BLOOD ORDERABLES Final Result Performing Organization Address City/[facility]/ZIP Co de Phone Number [facility] Department [place] [address] * Potassium, whole blood (05/07/2023 5:56 AM ENGRAVING PLATE MAKER) [facility] Potassium, bld 3.9 3.3 - 4.9 mmol/L [facility] Blood 05/07/2023 5:56 AM ENGRAVING PLATE MAKER 05/07/2023 6:08 AM ENGRAVING PLATE MAKER Anderson Tolentino Jr., TREE LAB BLOOD ORDERABLE S Final Result [facility] [place] [address] * Potassium, whole blood (05/07/2023 3:58 AM ENGRAVING PLATE MAKER) Potassium, bld 4.2 3.3 - 4.9 mmol/L [facility] Blood 05/07/2023 3:58 AM ENGRAVING PLATE MAKER 05/07/2023 4:19 AM ENGRAVING PLATE MAKER us Anderson Tolentino Jr., BUSINESS PROCESS ARCHITECT LAB BLOOD ORDERABLE S Final Result [facility] [place] [address] * [place] ARTL CATHJ/CANNULJ MNTR/TRANSFUSION SPX PRQ (05/07/2023 2:50 AM ENGRAVING PLATE MAKER) Narrative Dalton Locke MD - 05/07/2023 2:50 AM ENGRAVING PLATE MAKER Michael Hamm MD ? 05/07/2023 ??2:52 AM Arterial Line Insertion Date/Time: 05/07/2023 2:50 AM Performed by: Michael Hamm MD Authorized by: Michael Hamm MD ?? [place] Protocol: RN Notified of Procedure: yes ?? [...] Final Result * eGFR (05/07/2023 12:35 AM ENGRAVING PLATE MAKER) Pathologist [facility] eGFR >90 >=60 mL/min/1. 73 [...] reviewed 2021. Blood 05/07/2023 12:3 5 AM ENGRAVING PLATE MAKER 05/07/2023 12:47 AM ENGRAVING PLATE MAKER us Alonzo Duncan MD LAB BLOOD ORDERABLES Fin al Result [facility] Department [place] [address] * (ABNORMAL) Blood gas, arterial (05/07/2023 12:35 AM ENGRAVING PLATE MAKER) pH, Art 7.52(H) 7.35 - 7.45 [facility] PCO2, Arterial 40 35 - 45 mmHg [facility] PO2, Arterial 117(H) 83 - 108 mmHg [facility] HCO3 Art (Calculated) 34(H) 20 - 30 mmol/L [facility] BE, art 9 mmol/L [facility] Comment: Interpretive Data No Reference Range Established Current Interpretive Data was last revised on 2017 O2 Sat Art (Measured) 99(H) 90 - 95 % [facility] Blood 05/07/2023 12:3 5 AM ENGRAVING PLATE MAKER 05/07/2023 12:45 AM ENGRAVING PLATE MAKER us Faustino Herrera MD LAB BLOOD ORDERABLES Final Result [facility] [place] [address] * Potassium, whole blood (05/07/2023 12:35 AM ENGRAVING PLATE MAKER) Pathologist [facility] Potassium, bld 3.7 3.3 - 4.9 mmol/L [facility] Blood 05/07/2023 12:3 5 AM ENGRAVING PLATE MAKER 05/07/2023 12:45 AM ENGRAVING PLATE MAKER us Anderson Tolentino Jr., TREE LAB BLOOD ORDER[place] [address] * Type and screen (05/07/2023 12:35 AM ENGRAVING PLATE MAKER) Ellen, indirect Negative ABO Rh A Positive [facility] Blood 05/07/2023 12:3 5 AM ENGRAVING PLATE MAKER 05/07/2023 1:00 AM ENGRAVING PLATE MAKER Narrative [facility] - 05/07/2023 2:20 AM ENGRAVING PLATE MAKER Has the patient had Daratumumab or Isatuximab in the past 6 months?->Unknown Faustino Herrera MD LAB BLOOD BANK TEST ORDERA BLES Final Result Performing Organization Address [facility] Co de Phone Number [facility] [place] [address] * Phosphorus (05/07/2023 12:35 AM ENGRAVING PLATE MAKER) [facility] Phosphorus, pl 2.9 2.3 - 4.5 mg/dL [facility] Blood 05/07/2023 12:3 5 AM ENGRAVING PLATE MAKER 05/07/2023 12:47 AM ENGRAVING PLATE MAKER Faustino Herrera MD LAB BLOOD ORDERABLES Final Result Performing Organization Address [facility] de Phone Number [facility] Department [place] [address] * Magnesium (05/07/2023 12:35 AM ENGRAVING PLATE MAKER) [facility] Magnesium 2.3 1.4 - 2.5 mg/dL [facility] Blood 05/07/2023 12:3 5 AM ENGRAVING PLATE MAKER 05/07/2023 12:47 AM ENGRAVING PLATE MAKER Faustino Herrera MD LAB BLOOD ORDERABLES Final Result Performing Organization Address [facility] de Phone Number [facility] [place] [address] * (ABNORMAL) Basic metabolic panel (05/07/2023 12:35 AM ENGRAVING PLATE MAKER) [facility] Sodium 140 135 - 145 mmol/L [facility] Potassium, pl 3.8 3.3 - 4.9 mmol/L [facility] Chloride 97 97 - 110 mmol/L [facility] CO2 33(H) 22 - 32 mmol/L [facility] Anion gap 10 2 - 15 mmol/L [facility] BUN 20 6 - 25 mg/dL [facility] Creatinine 0.99 0.80 - 1.30 mg/dL [facility] Glucose 103 70 - 199 mg/dL [facility] Comment: Interpretive Data Fasting glucose [...] Calcium 8.7 8.5 - 10.3 mg/dL [facility] Blood 05/07/2023 12:3 5 AM ENGRAVING PLATE MAKER 05/07/2023 12:47 AM ENGRAVING PLATE MAKER Faustino Herrera MD LAB BLOOD ORDERABLES Final Result [facility] [place] [address] * (ABNORMAL) CBC without differential (05/07/2023 12:35 AM ENGRAVING PLATE MAKER) [facility] WBC 13.6(H) 3.8 - 9.9 K/cumm [facility] Hgb 10.0(L) 13.0 - 17.5 g/dL [facility] Comment: Interpretive Data A reference range for this assay has not been established for patients with an unknown legal sex. Please refer to the laboratory test catalog for established sex-specific reference intervals. Current interpretive data was last revised on 2023. Hct 29.5(L) 38.9 - 50.3 % [facility] Comment: Interpretive Data A reference range for this assay has not been established for patients with an unknown legal sex. Please refer to the laboratory test catalog for established sex-specific reference intervals. Current interpretive data was last revised on 2023. Plt 244 150 - 400 K/cumm [facility] MPV 10.1 9.1 - 12.3 fL [facility] RBC 3.36(L) 4.30 - 5.80 M/cumm [facility] Comment: Interpretive Data A reference range for this assay has not been established for patients with an unknown legal sex. Please refer to the laboratory test catalog for established sex-specific reference intervals. Current interpretive data was last revised on 2023. MCV 87.8 81.3 - 96.4 fL [facility] MCH 29.8 27.1 - 33.3 pg [facility] MCHC 33.9 32.3 - 35.7 g/dL [facility] RDW CV 13.6 11.1 - 14.9 % [facility] RDW SD 43.8 35.7 - 48.1 fL [facility] NRBC abs 0.02(H) 0.00 - 0.01 K/cumm [facility] Blood 05/07/2023 12:3 5 AM ENGRAVING PLATE MAKER 05/07/2023 12:48 AM ENGRAVING PLATE MAKER us Faustino Herrera MD LAB BLOOD ORDERABLES Final Result Performing Organization Address City/[facility]/ZIP Co de Phone Number [facility] Department [place] [address] * Lactate (05/07/2023 12:35 AM ENGRAVING PLATE MAKER) Lactate 1.2 0.7 - 2.0 mmol/L [facility] Blood 05/07/2023 12:3 5 AM ENGRAVING PLATE MAKER 05/07/2023 12:48 AM ENGRAVING PLATE MAKER Alonzo Duncan MD LAB BLOOD ORDERABLES Fin al Result [facility] [place] [address] * (ABNORMAL) Triglycerides (05/07/2023 12:35 AM ENGRAVING PLATE MAKER) Triglycerides 346(H) <=149 mg/dL [facility] Comment: Interpretive Data Ages < [...] on 2018. Blood 05/07/2023 12:3 5 AM ENGRAVING PLATE MAKER 05/07/2023 12:47 AM ENGRAVING PLATE MAKER Sheila BRADFORD LAB BLOOD ORDERABLE S Final Result Performing Organization Address City/State/[facility] Co de Phone Number [facility] [place] [address] * MRI Spine Total Complete WO Contrast (05/07/2023 12:10 AM ENGRAVING PLATE MAKER) Anatomical Region Laterality Modality Spine N/A Magnetic Resonan ce 05/07/2023 8:59 AM ENGRAVING PLATE MAKER Addenda Addendum by Veronica Hall MD on 05/08/2023 12:24 PM ENGRAVING PLATE MAKER ADDENDUM Diffusion-weighted images are performed. ??No evidence of cord ischemia. Electronically signed by: Veronica Hall M.D. Impressions 05/07/2023 10:15 AM ENGRAVING PLATE MAKER 1. ??Focal displacement of the cauda equina [...] Veronica Hall M.D. Narrative 05/07/2023 10:15 AM ENGRAVING PLATE MAKER EXAMINATION: 1. Magnetic resonance imaging (MRI) of [...] by: Veronica Hall M.D. Faustino Herrera MD [facility] MRI PROCEDURES Edited Result - Final * XR Chest 1 View (05/06/2023 10:08 PM ENGRAVING PLATE MAKER) Anatomical Region Laterality Modality Body, Chest N/A Digital Radiogra phy 05/07/2023 7:11 AM ENGRAVING PLATE MAKER Impressions 05/07/2023 7:11 AM ENGRAVING PLATE MAKER The current study is compared with the [...] Floridalma Oliva M.D. Narrative 05/07/2023 7:11 AM ENGRAVING PLATE MAKER EXAMINATION: 1 view chest radiograph Procedure Note [...] Re sult * INTUBATION (05/06/2023 9:36 PM ENGRAVING PLATE MAKER) Narrative Dalton Locke MD - 05/06/2023 9:36 PM ENGRAVING PLATE MAKER Dustin Souza, DO ? 05/06/2023 ??9:39 PM Intubation Date/Time: 05/06/2023 9:36 PM Performed by: Dustin Souza, Authorized by: Dustin Souza, DO ?? [place] Protocol: RN Notified of Procedure: yes ?? [...] XR Chest 1 View (05/06/2023 7:41 PM ENGRAVING PLATE MAKER) Anatomical Region Laterality Modality Body, Chest N/A Computed Radiogr aphy 05/06/2023 8:04 PM ENGRAVING PLATE MAKER Impressions 05/06/2023 8:04 PM ENGRAVING PLATE MAKER The current study is compared with the prior radiograph dated ??05/05/2023. ??The heart is mildly enlarged there is a prominent aorta with an endoluminal aortic stent graft in place. ??Vascular stent is also seen superimposing arch vessel. ??There is no mass or lymphadenopathy no pulmonary edema no effusions. ??There is no pneumothorax.. Electronically signed by: Floridalma Oliva M.D. Narrative 05/06/2023 8:04 PM ENGRAVING PLATE MAKER EXAMINATION: 1 view chest radiograph Procedure Note [...] (ABNORMAL) Blood gas, arterial (05/06/2023 7:22 PM ENGRAVING PLATE MAKER) pH, Art 7.54(H) 7.35 - 7.45 [facility] PCO2, Arterial 39 35 - 45 mmHg [facility] PO2, Arterial 118(H) 83 - 108 mmHg [facility] HCO3 Art (Calculated) 34(H) 20 - 30 mmol/L [facility] BE, art 10 mmol/L [facility] Comment: Interpretive Data No Reference Range Established Current Interpretive Data was last revised on 2017 O2 Sat Art (Measured) 99(H) 90 - 95 % [facility] Blood 05/06/2023 7:22 PM ENGRAVING PLATE MAKER 05/06/2023 7:29 PM ENGRAVING PLATE MAKER us Faustino Herrera MD LAB BLOOD ORDERABLES Final Result [facility] Department of Laboratories [place], [place] [id number] * Potassium, whole blood (05/06/2023 7:22 PM ENGRAVING PLATE MAKER) Potassium, bld 3.8 3.3 - 4.9 mmol/L [facility] Blood 05/06/2023 7:22 PM ENGRAVING PLATE MAKER 05/06/2023 7:29 PM ENGRAVING PLATE MAKER Anderson Tolentino Jr., TREE LAB BLOOD ORDERABLE S Final Result [facility] [place] [address] * (ABNORMAL) Blood gas, arterial (05/06/2023 4:35 PM ENGRAVING PLATE MAKER) pH, Art 7.51(H) 7.35 - 7.45 [facility] PCO2, Arterial 42 35 - 45 mmHg [facility] PO2, Arterial 72(L) 83 - 108 mmHg [facility] HCO3 Art (Calculated) 34(H) 20 - 30 mmol/L [facility] BE, art 9 mmol/L [facility] Comment: Interpretive Data No Reference Range Established Current Interpretive Data was last revised on 2017 O2 Sat Art (Measured) 96(H) 90 - 95 % [facility] Blood 05/06/2023 4:35 PM ENGRAVING PLATE MAKER 05/06/2023 4:43 PM ENGRAVING PLATE MAKER Faustino Herrera MD LAB BLOOD ORDERABLES Final Result Performing Organization Address [facility] [place] [address] * Potassium, whole blood (05/06/2023 4:35 PM ENGRAVING PLATE MAKER) Potassium, bld 4.0 3.3 - 4.9 mmol/L [facility] Blood 05/06/2023 4:35 PM ENGRAVING PLATE MAKER 05/06/2023 4:43 PM ENGRAVING PLATE MAKER Anderson Tolentino Jr., TREE LAB BLOOD ORDERABLE S Final Result [facility] [place] [address] * Potassium, whole blood (05/06/2023 10:30 AM ENGRAVING PLATE MAKER) Potassium, bld 3.5 3.3 - 4.9 mmol/L [facility] Blood 05/06/2023 10:3 0 AM ENGRAVING PLATE MAKER 05/06/2023 10:38 AM ENGRAVING PLATE MAKER Anderson Tolentino Jr., TREE LAB BLOOD ORDERABLE S Edited Result - Final [facility] Department [place] [address] * (ABNORMAL) Blood gas, arterial (05/06/2023 10:30 AM ENGRAVING PLATE MAKER) pH, Art 7.48(H) 7.35 - 7.45 [facility] PCO2, Arterial 45 35 - 45 mmHg [facility] PO2, Arterial 98 83 - 108 mmHg [facility] HCO3 Art (Calculated) 34(H) 20 - 30 mmol/L [facility] BE, art 9 mmol/L [facility] Comment: Interpretive Data No Reference Range Established Current Interpretive Data was last revised on 2017 O2 Sat Art (Measured) 98(H) 90 - 95 % [facility] Blood 05/06/2023 10:3 0 AM ENGRAVING PLATE MAKER 05/06/2023 10:38 AM ENGRAVING PLATE MAKER Faustino Herrera MD LAB BLOOD ORDERABLES Final Result [facility] [place] [address] * Potassium, whole blood (05/06/2023 6:07 AM ENGRAVING PLATE MAKER) Potassium, bld 3.4 3.3 - 4.9 mmol/L [facility] Blood 05/06/2023 6:07 AM ENGRAVING PLATE MAKER 05/06/2023 6:21 AM ENGRAVING PLATE MAKER us Anderson Tolentino Jr., BUSINESS PROCESS ARCHITECT LAB BLOOD ORDERABLE S Final Result [facility] [place] [address] * (ABNORMAL) POC Blood Gas and Chemistries, Arterial - (05/06/2023 1:32 AM ENGRAVING PLATE MAKER) pH, Art POC 7.48(H) 7.35 - 7.45 [...] Cl, POC 101 97 - 110 mmol/L [facility] Ionized Ca, POC 4.27(L) 4.50 - 5.10 mg/dL [facility] BJ Glucose, POC 122 70 - 199 mg/dL [facility] Lactate, POC 0.7 0.7 - 2.2 mmol/L [facility] SO2 (natalia) arterial 96(H) 90 - 95 % [facility] Base excess, POC 10.2 mmol/L [facility] HCO3, Art POC 35(H) 20 - 30 mmol/L [facility] Hct, POC 32.0(L) 41.4 - 51.6 % [facility] O2 Sat, Art POC (Calc) 94 % [facility] Total Hb, POC 10.7(L) 13.8 - 17.2 g/dL [facility] Blood 05/06/2023 1: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 [place] [address] * (ABNORMAL) Troponin I high-sensitivity 6-hour (05/06/2023 1:28 AM ENGRAVING PLATE MAKER) Trop I hs 61(H) <=35 ng/L [facility] Comment: Interpretive Data For further [facility] resources including the diagnostic algorithm and an aid in interpretation, copy and paste this link: [email or web address].testcatalog.org/show/[email or web address] Current Interpretive Data last revised 2019. Trop I hs delta -13 ng/L [facility] Trop I hs interp Equivocal [facility] Blood 05/06/2023 1:28 AM ENGRAVING PLATE MAKER 05/06/2023 1:46 AM ENGRAVING PLATE MAKER Faustino Herrera MD LAB BLOOD ORDERABLES Final Result Performing Organization Address [facility] de Phone Number [facility] [place] [place] [address] * (ABNORMAL) CBC without differential (05/06/2023 1:28 AM ENGRAVING PLATE MAKER) WBC 23.8(H) 3.8 - 9.9 K/cumm [facility] Hgb 10.5(L) 13.0 - 17.5 g/dL [facility] Comment: Interpretive Data A reference range for this assay has not been established for patients with an unknown legal sex. Please refer to the laboratory test catalog for established sex-specific reference intervals. Current interpretive data was last revised on 2023. Hct 31.2(L) 38.9 - 50.3 % [facility] Comment: Interpretive Data A reference range for this assay has not been established for patients with an unknown legal sex. Please refer to the laboratory test catalog for established sex-specific reference intervals. Current interpretive data was last revised on 2023. Plt 193 150 - 400 K/cumm [facility] MPV 10.7 9.1 - 12.3 fL [facility] RBC 3.46(L) 4.30 - 5.80 M/cumm [facility] Comment: Interpretive Data A reference range for this assay has not been established for patients with an unknown legal sex. Please refer to the laboratory test catalog for established sex-specific reference intervals. Current interpretive data was last revised on 2023. MCV 90.2 81.3 - 96.4 fL [facility] MCH 30.3 27.1 - 33.3 pg [facility] MCHC 33.7 32.3 - 35.7 g/dL [facility] RDW CV 13.4 11.1 - 14.9 % [facility] RDW SD 44.2 35.7 - 48.1 fL [facility] NRBC abs 0.14(H) 0.00 - 0.01 K/cumm [facility] Blood 05/06/2023 1:28 AM ENGRAVING PLATE MAKER 05/06/2023 1:46 AM ENGRAVING PLATE MAKER us Faustino Herrera MD LAB BLOOD ORDERABLES Final Result Performing Organization Address City/[facility] Co de Phone Number [facility] [place] [address] * Transfuse platelets (05/05/2023 11:48 PM ENGRAVING PLATE MAKER) Blood Result Misty Herrera MD BLOOD TRANSFUSION ORDERABL ES Final Result [facility] [place] [address] * Transfuse platelets: 2 Units (05/05/2023 11:48 PM ENGRAVING PLATE MAKER) Blood us Faustino Herrera MD BLOOD TRANSFUSION ORDERABL ES Final Result * Transfuse platelets (05/05/2023 11:39 PM ENGRAVING PLATE MAKER) Blood us Faustino Herrera MD BLOOD TRANSFUSION ORDERABL ES Final Result [facility] [place] [address] * Transfuse RBC (05/05/2023 11:18 PM ENGRAVING PLATE MAKER) Blood Faustino Herrera MD BLOOD TRANSFUSION ORDERABL ES Final Result [facility] [place] [address] * Transfuse RBC: 1 Units (05/05/2023 11:18 PM ENGRAVING PLATE MAKER) Blood Faustino Herrera MD BLOOD TRANSFUSION ORDERABL ES Final Result * (ABNORMAL) POC Blood Gas and Chemistries, Arterial - (05/05/2023 9:15 PM ENGRAVING PLATE MAKER) pH, Art POC 7.46(H) 7.35 - 7.45 [facility] pCO2, Art POC 48(H) 35 - 45 mmHg [facility] pO2, Art POC 128(H) 83 - 108 mmHg [facility] Na, POC 140 135 - 145 mmol/L [facility] K POC 3.8 3.3 - 4.9 mmol/L [facility] Comment: Interpretive Data This method is not able to assess for hemolysis, which may falsely increase potassium concentrations. If further testing is needed to evaluate this result, consider in-laboratory plasma potassium. Current Interpretive Data was last revised on 2022. Cl, POC 102 97 - 110 mmol/L [facility] Ionized Ca, POC 4.49(L) 4.50 - 5.10 mg/dL [facility] Glucose, POC 140 70 - 199 mg/dL [facility] Lactate, POC 0.8 0.7 - 2.2 mmol/L [facility] SO2 (natalia) arterial 100(H) 90 - 95 % [facility] Base excess, POC 9.1 mmol/L [facility] HCO3, Art POC 34(H) 20 - 30 mmol/L [facility] Hct, POC 30.0(L) 41.4 - 51.6 % [facility] O2 Sat, Art POC (Calc) 99 % [facility] Total Hb, POC 9.9(L) 13.8 - 17.2 g/dL [facility] Blood 05/05/2023 9:15 PM ENGRAVING PLATE MAKER 05/05/2023 9:15 PM ENGRAVING PLATE MAKER Faustino Herrera MD LAB POCT ORDERABLES - ROSIE CE Final Result Performing Organization Address [facility] de Phone Number [facility] Department [place] [address] * (ABNORMAL) Troponin I high-sensitivity 2-hour (05/05/2023 9:15 PM ENGRAVING PLATE MAKER) Pathologist [facility] Trop I hs 68(H) <=35 ng/L [facility] Comment: Interpretive Data For further hscTnI resources including the diagnostic algorithm and an aid in interpretation, copy and paste this link: https://bjhlab.testcatalog.org/show/hsTrop-[email or web address] Current Interpretive Data last revised 2019. Trop I hs delta -6 ng/L [facility] Trop I hs interp Equivocal [facility] Blood 05/05/2023 9:15 PM ENGRAVING PLATE MAKER 05/05/2023 9:38 PM ENGRAVING PLATE MAKER Faustino Herrera MD LAB BLOOD ORDERABLES Final Result Performing Organization Address [facility] Co de Phone Number [facility] Department [place] [address] * Prepare platelets: 2 Units (05/05/2023 8:17 PM ENGRAVING PLATE MAKER) Product code [id number] Unit Number [id number] [facility] Product Blood Type APOS [facility] Dispense Status PRESUMED TRANSFUSED [facility] Blood (Blood, Venous) 05/05/2023 8:17 PM ENGRAVING PLATE MAKER 05/05/2023 8:17 PM ENGRAVING PLATE MAKER Narrative [facility] - 05/06/2023 4:02 PM ENGRAVING PLATE MAKER Specify Procedure:->Lumbar Drain Are special requirements needed? (all products are leukoreduced)->No Date required:-[id number] PLT # of Units:-2-Units Reasons:-Hold for procedure (specify procedure)} Faustino Herrera MD BLOOD BANK PRODUCT ORDERAB LES Final Result Performing Organization Address [facility] de Phone Number [facility] [address] * aPTT (05/05/2023 8:14 PM ENGRAVING PLATE MAKER) aPTT 35 28 - 38 sec [facility] Comment: Interpretive Data Heparin therapeutic range: 66.0 - 100.0 seconds. Range based on correlation with therapeutic heparin activity range of 0.3 - 0.7 Units/mL. Current interpretive data was last revised on 2023. Blood 05/05/2023 8:14 PM ENGRAVING PLATE MAKER 05/05/2023 8:22 PM ENGRAVING PLATE MAKER Faustino Herrera MD LAB BLOOD ORDERABLES Final Result Performing Organization Address [facility] de Phone Number [facility] [place] [place] [address] * (ABNORMAL) Protime-INR (05/05/2023 8:14 PM ENGRAVING PLATE MAKER) PT 16.9(H) 10.3 - 13.7 sec [facility] Comment: No clot detected in sample Repeated and verified - [id number] - 05/05/23, 8:59 PM INR 1.48(H) 0.90 - 1.20 [facility] Comment: No clot detected in sample Repeated and verified - [id number] - 05/05/23, 8:59 PM Interpretive data Oral anticoagulant therapeutic ranges: Venous thromboembolism prophylaxis or treatment: 2.0-3.0 CARDIOLOGY Standard range: 2.0-3.0 High-intensity range: 2.5-3.5 Refer to indication-specific guidelines for appropriate target ranges for prosthetic heart valve replacement. Current interpretive data was last revised on 2019. Blood 05/05/2023 8:14 PM ENGRAVING PLATE MAKER 05/05/2023 8:22 PM ENGRAVING PLATE MAKER Faustino Herrera MD LAB BLOOD ORDERABLES Final Result Performing Organization Address [facility] de Phone Number [facility] Department [place] [address] * Prepare RBC: 1 Units (05/05/2023 7:56 PM ENGRAVING PLATE MAKER) Product code [id number] Unit Number [id number] [facility] Product Blood Type APOS [facility] Dispense Status PRESUMED TRANSFUSED [facility] Blood 05/05/2023 7:56 PM ENGRAVING PLATE MAKER 05/05/2023 7:56 PM ENGRAVING PLATE MAKER Narrative [facility] - 05/06/2023 12:46 AM ENGRAVING PLATE MAKER Other indication->Protocol for c/f spinal cord ischemia Are special requirements needed? (All products are leukoreduced and CMV- safe)- >No Date required:-20230505 LRRBC # of [id number] Reasons:-Other (specify)} Faustino Herrera MD BLOOD BANK PRODUCT ORDERAB LES Final Result Performing Organization Address [facility] de Phone Number [facility] Department [place] [address] * XR Chest 1 View (05/05/2023 7:43 PM ENGRAVING PLATE MAKER) Anatomical Region Laterality Modality Body, Chest N/A Computed Radiogr aphy 05/06/2023 7:51 AM ENGRAVING PLATE MAKER Impressions 05/06/2023 7:51 AM ENGRAVING PLATE MAKER Comparison is made to prior chest radiograph [...] Ruthie Malone M.D. Narrative 05/06/2023 7:51 AM ENGRAVING PLATE MAKER EXAMINATION: 1 view chest radiograph Procedure Note [...] and Chemistries, Arterial - (05/05/2023 7:22 PM ENGRAVING PLATE MAKER) pH, Art POC 7.49(H) 7.35 - 7.45 [facility] pCO2, Art POC 44 35 - 45 mmHg [facility] pO2, Art POC 87 83 - 108 mmHg [facility] Na, POC 140 135 - 145 mmol/L [facility] K POC 3.7 3.3 - 4.9 mmol/L [facility] Comment: Interpretive Data This method is not able to assess for hemolysis, which may falsely increase potassium concentrations. If further testing is needed to evaluate this result, consider in-laboratory plasma potassium. Current Interpretive Data was last revised on 2022. Cl, POC 101 97 - 110 mmol/L [facility] Ionized Ca, POC 4.20(L) 4.50 - 5.10 mg/dL [facility] Glucose, POC 140 70 - 199 mg/dL [facility] Lactate, POC 1.0 0.7 - 2.2 mmol/L [facility] SO2 (natalia) arterial 99(H) 90 - 95 % [facility] Base excess, POC 9.2 mmol/L [facility] HCO3, Art POC 34(H) 20 - 30 mmol/L [facility] Hct, POC 30.0(L) 41.4 - 51.6 % [facility] O2 Sat, Art POC (Calc) 97 % [facility] Total Hb, POC 9.9(L) 13.8 - 17.2 g/dL [facility] Blood 05/05/2023 7:22 PM ENGRAVING PLATE MAKER 05/05/2023 7:22 PM ENGRAVING PLATE MAKER Faustino Herrera MD LAB POCT ORDERABLES - ROSIE CE Final Result Performing Organization Address [facility] Co de Phone Number [facility] [place] [address] * (ABNORMAL) Troponin I high-sensitivity series (baseline, 2hr, 4hr, 6hr) (05/05/2023 7:22 PM ENGRAVING PLATE MAKER) Pathologist [facility] Trop I hs 74(H) <=35 ng/L [facility] Comment: Interpretive Data For further [facility] resources including the diagnostic algorithm and an aid in interpretation, copy and paste this link: [email or web address].testcatalog.org/show/[email or web address] Current Interpretive Data last revised 2019. Blood 05/05/2023 7:22 PM ENGRAVING PLATE MAKER 05/05/2023 7:54 PM ENGRAVING PLATE MAKER Faustino Herrera MD LAB BLOOD ORDERABLES Final Result Performing Organization Address City/[facility]/ZIP Co de Phone Number [facility] [place] [address] * ECG 12 lead (05/05/2023 6:56 PM ENGRAVING PLATE MAKER) Ventricular Rate EKG/Min 81 BPM [facility] Atrial Rate 81 BPM [facility] [place]-Interval (MSEC) 164 ms [facility] QRS-Interval (MSEC) 98 ms [facility] QT-Interval (MSEC) 384 ms [facility] QTc 446 ms [facility] P [place] 57 degrees [facility] R [place] 8 degrees [facility] T [place] 187 degrees [facility] Diagnosis Normal sinus rhythm Left ventricular hypertrophy with repolarization abnormality ( [place] product ) Abnormal ECG No previous ECGs available Confirmed by ADAM VALVERDE M.D ([id number]) on 05/13/2023 11:55:53 AM [facility] 05/05/2023 6:56 PM ENGRAVING PLATE MAKER 05/13/2023 11:55 AM ENGRAVING PLATE MAKER us Faustino Herrera MD ECG ORDERABLES Final Resu lt [facility] [place] * CTA Chest Abdomen Pelvis (05/05/2023 6:28 PM ENGRAVING PLATE MAKER) Anatomical Region Laterality Modality Body N/A Computed Tomogra phy 05/05/2023 6:52 PM ENGRAVING PLATE MAKER Impressions 05/05/2023 8:42 PM ENGRAVING PLATE MAKER 1. ??Interval postprocedural changes of endovascular repair [...] Otoniel Avalos M.D. Narrative 05/05/2023 8:42 PM ENGRAVING PLATE MAKER EXAMINATION: CT ANGIOGRAPHY OF THE CHEST, ABDOMEN [...] the 3-D workstation and sent to the [employer] system. ?? COMPARISON: 05/02/2023 FINDINGS: ?? Chest: [...] the 3-D workstation and sent to the [employer] archival system. COMPARISON: 05/02/2023 FINDINGS: Chest: Interval [...] WO CONTRAST W BUBBLE (05/05/2023 4:50 PM ENGRAVING PLATE MAKER) Anatomical Region Laterality Modality Ultrasound 05/05/2023 12:0 0 PM ENGRAVING PLATE MAKER Narrative 05/05/2023 5:06 PM ENGRAVING PLATE MAKER Patient name: Eriberto Chau Date of test: 05/05/2023 Type of test: [facility] #: 0 Date of : 1990 (M) Mechanical Handyman: Ellen Ely RDCS Referring Physician: FAUSTINO HERRERA MD Contrast Agent: Agitated Saline Bubble Study Performed Contrast Administered by: Oralia FRASER Supervised/Interpreted by: Trupti Ulloa MD Diagnosis: Location: [facility] Reason for test: Hypoxia, c/f cardiac shunt [...] 2=Hypo 3=Akinetic 4=Dyskin./Aneurysm 0=Not visualized) Parasternal Long [place]:MAS=1 BAS=1 MIL=1 GARO=1 Parasternal Short [place]:MAS=1 MIS=1 [place]=1 MIL=1 MAL=1 MA=1 Apical 4 [...] MD By signing this report, the attending telegraph office manager certifies that he or she has personally supervised and interpreted the echocardiogram and has reviewed and or edited and agrees with the written comments contained within the report. Procedure Note Trupti Ulloa MD - 05/05/2023 Patient name: Eriberto Chau Date of test: 05/05/2023 Type of test: [facility] #: 0 Date of : 1990 (M) Mechanical Handyman: Ellen Ely [facility] Referring Physician: FAUSTINO HERRERA MD Contrast Agent: Agitated Saline Bubble Study Performed Contrast Administered by: Oralia FRASER Supervised/Interpreted by: Trupti Ulloa MD Diagnosis: Location: [facility] Reason for test: Hypoxia, c/f cardiac shunt [...] 2=Hypo 3=Akinetic 4=Dyskin./Aneurysm 0=Not visualized) Parasternal Long [place]:MAS=1 BAS=1 MIL=1 GARO=1 Parasternal Short [place]:MAS=1 MIS=1 [place]=1 MIL=1 MAL=1 MA=1 Apical 4 [...] MD By signing this report, the attending telegraph office manager certifies that he or she has personally supervised and interpreted the echocardiogram and has reviewed and or edited and agrees with the written comments contained within the report. us Faustino Herrera MD CV ECHO PROCEDURES Final R esult * Critical Care (05/05/2023 1:24 PM ENGRAVING PLATE MAKER) Narrative Carline Jerome MD - 05/05/2023 1:24 PM ENGRAVING PLATE MAKER Carline Jerome MD ? 05/05/2023 ??1:25 PM [...] plan with the ICU team and other medical/jewelry consultant staff, making frequent assessments and decisions [...] Pneumonia PCR Tracheal aspirate (05/05/2023 11:27 AM ENGRAVING PLATE MAKER) C. pneumoniae DNA Not Detected Not Detected [facility] Legionella pneumophila DNA Not Detected Not Detected [facility] M. pneumoniae DNA Not Detected Not Detected [facility] Adenovirus DNA Not Detected Not Detected [facility] Coronavirus (229E, OC43, HKU1, NL63) RNA Not Detected Not Detected [facility] Metapneumovirus RNA Not Detected Not Detected [facility] Rhinovirus/Enterov irus RNA Not Detected Not Detected [facility] Influenza A RNA Not Detected Not Detected [facility] Influenza B RNA Not Detected Not Detected [facility] Parainfluenza virus (1-4) RNA Not Detected Not Detected [facility] RSV RNA Not Detected Not Detected [facility] Tracheal aspirate 05/05/2023 11:27 AM ENGRAVING PLATE MAKER 05/05/2023 2:45 PM ENGRAVING PLATE MAKER Narrative [facility] - 05/05/2023 4:23 PM ENGRAVING PLATE MAKER The [employer] Pneumonia Panel is a multiplexed [...] rule out infection/co-infection with other organisms. The [employer] Pneumonia Panel is FDA cleared for lower respiratory tract specimens. The performance characteristics of this assay have been determined by [facility]. Current interpretive data was last revised on 2021. Sheila BRADFORD LAB MICROBIOLOGY - GENERAL ORDERABLES Final Result [facility] [place] [address] * (ABNORMAL) Pneumonia PCR with aerobic culture and Gram stain Tracheal aspirate (05/05/2023 11:27 [facility]) Direct Specimen Exam Molecular Analysis: 10^6 copies/mL Haemophilus influenzae Correlation of molecular analysis with final culture results is recommended. [facility] Direct Specimen Exam Stain: Abundant polymorphonuclear leukocytes seen. No squamous epithelial cells seen. No organisms seen. [facility] Report Final Report: Insignificant growth based on current clinical standards. (.) [facility] Tracheal aspirate 05/05/2023 11:27 AM ENGRAVING PLATE MAKER 05/05/2023 12:55 PM ENGRAVING PLATE MAKER Narrative [facility] - 05/07/2023 11:21 AM ENGRAVING PLATE MAKER When rapid molecular testing results are reported, testing completed using the [employer] Pneumonia Panel. ??This molecular assay detects: Acinetobacter [...] performance characteristics have been confirmed by the [facility]. ??The performance of the [employer] Pneumonia Panel has not been established for monitoring treatment of infection and bacterial nucleic acids may persist independent of organism viability. Sheila BRADFORD LAB MICROBIOLOGY - GENERAL ORDERABLES Final Result [facility] [place] [address] * [place] DIAGNOSTIC LUMBAR SPINAL PUNCTURE (05/05/2023 10:05 AM ENGRAVING PLATE MAKER) Narrative Shira Dodson MD - 05/05/2023 10:05 AM ENGRAVING PLATE MAKER Shira Dodson MD ? 2023 ??3:17 PM Lumbar Drain Date/Time: 05/05/2023 10:05 AM Performed by: Shira Dodson MD Authorized by: Shira Dodson MD ?? [place] Protocol: RN Notified of Procedure: yes ?? [...] (ABNORMAL) Blood gas, arterial (05/05/2023 8:21 AM ENGRAVING PLATE MAKER) pH, Art 7.42 7.35 - 7.45 [facility] PCO2, Arterial 52(H) 35 - 45 mmHg [facility] PO2, Arterial 117(H) 83 - 108 mmHg [facility] HCO3 Art (Calculated) 34(H) 20 - 30 mmol/L [facility] BE, art 8 mmol/L [facility] Comment: Interpretive Data No Reference Range Established Current Interpretive Data was last revised on 2017 O2 Sat Art (Measured) 99(H) 90 - 95 % [facility] Blood 05/05/2023 8:21 AM ENGRAVING PLATE MAKER 05/05/2023 8:28 AM ENGRAVING PLATE MAKER Faustino Herrera MD LAB BLOOD ORDERABLES Final Result Performing Organization Address City/[facility] Co de Phone Number [facility] [place] [address] * Lactate (05/05/2023 8:21 AM ENGRAVING PLATE MAKER) Lactate 0.8 0.7 - 2.0 mmol/L [facility] Blood 05/05/2023 8:21 AM ENGRAVING PLATE MAKER 05/05/2023 8:27 AM ENGRAVING PLATE MAKER Alonzo Duncan MD LAB BLOOD ORDERABLES Fin al Result Performing Organization Address [facility] de Phone Number [facility] [place] [address] * (ABNORMAL) Blood gas, arterial (05/05/2023 4:51 AM ENGRAVING PLATE MAKER) pH, Art 7.40 7.35 - 7.45 [facility] PCO2, Arterial 51(H) 35 - 45 mmHg [facility] PO2, Arterial 118(H) 83 - 108 mmHg [facility] HCO3 Art (Calculated) 32(H) 20 - 30 mmol/L [facility] BE, art 5 mmol/L [facility] Comment: Interpretive Data No Reference Range Established Current Interpretive Data was last revised on 2017 O2 Sat Art (Measured) 99(H) 90 - 95 % [facility] Blood 05/05/2023 4:51 AM ENGRAVING PLATE MAKER 05/05/2023 5:43 AM ENGRAVING PLATE MAKER Faustino Herrera MD LAB BLOOD ORDERABLES Final Result Performing Organization Address [facility] de Phone Number [facility] [place] [address] * Potassium, whole blood (05/05/2023 4:51 AM ENGRAVING PLATE MAKER) Potassium, bld 4.2 3.3 - 4.9 mmol/L [facility] Blood 05/05/2023 4:51 AM ENGRAVING PLATE MAKER 05/05/2023 5:43 AM ENGRAVING PLATE MAKER us Anderson Tolentino Jr., TREE LAB BLOOD ORDERABLE S Edited Result - Final [facility] [place] [address] * eGFR (05/05/2023 12:12 AM ENGRAVING PLATE MAKER) Pathologist [facility] eGFR 89 >=60 mL/min/1. 73 m2 [facility] Comment: Interpretive Data Reference Interval [...] reviewed 2021. Blood 05/05/2023 12:1 2 AM ENGRAVING PLATE MAKER 05/05/2023 12:20 AM ENGRAVING PLATE MAKER Alonzo Duncan MD LAB BLOOD ORDERABLES Fin al Result Performing Organization Address [facility] Co de Phone Number [facility] [place] [address] * Phosphorus (05/05/2023 12:12 AM ENGRAVING PLATE MAKER) Pathologist [facility] Phosphorus, pl 2.9 2.3 - 4.5 mg/dL [facility] Blood 05/05/2023 12:1 2 AM ENGRAVING PLATE MAKER 05/05/2023 12:20 AM ENGRAVING PLATE MAKER Faustino Herrera MD LAB BLOOD ORDERABLES Final Result Performing Organization Address [facility] de Phone Number [facility] [place] [address] * Magnesium (05/05/2023 12:12 AM ENGRAVING PLATE MAKER) [facility] Magnesium 1.8 1.4 - 2.5 mg/dL [facility] Blood 05/05/2023 12:1 2 AM ENGRAVING PLATE MAKER 05/05/2023 12:20 AM ENGRAVING PLATE MAKER Faustino Herrera MD LAB BLOOD ORDERABLES Final Result Performing Organization Address [facility] de Phone Number [facility] [place] [address] * (ABNORMAL) Basic metabolic panel (05/05/2023 12:12 AM ENGRAVING PLATE MAKER) [facility] Sodium 145 135 - 145 mmol/L [facility] Potassium, pl 4.4 3.3 - 4.9 mmol/L [facility] Chloride 106 97 - 110 mmol/L [facility] CO2 30 22 - 32 mmol/L [facility] Anion gap 9 2 - 15 mmol/L [facility] BUN 9 6 - 25 mg/dL [facility] Creatinine 1.14 0.80 - 1.30 mg/dL [facility] Glucose 126 70 - 199 mg/dL [facility] Comment: Interpretive Data Fasting glucose [...] 2022. Calcium 8.1(L) 8.5 - 10.3 mg/dL [facility] Blood 05/05/2023 12:1 2 AM ENGRAVING PLATE MAKER 05/05/2023 12:20 AM ENGRAVING PLATE MAKER us Faustino Herrera MD LAB BLOOD ORDERABLES Final Result [facility] [place] [address] * (ABNORMAL) CBC without differential (05/05/2023 12:12 AM ENGRAVING PLATE MAKER) Pathologist [facility] WBC 16.4(H) 3.8 - 9.9 K/cumm [facility] Hgb 9.4(L) 13.0 - 17.5 g/dL [facility] Comment: Interpretive Data A reference range for this assay has not been established for patients with an unknown legal sex. Please refer to the laboratory test catalog for established sex-specific reference intervals. Current interpretive data was last revised on 2023. Hct 27.9(L) 38.9 - 50.3 % [facility] Comment: Interpretive Data A reference range for this assay has not been established for patients with an unknown legal sex. Please refer to the laboratory test catalog for established sex-specific reference intervals. Current interpretive data was last revised on 2023. Plt 132(L) 150 - 400 K/cumm [facility] MPV 10.3 9.1 - 12.3 fL [facility] RBC 3.10(L) 4.30 - 5.80 M/cumm [facility] Comment: Interpretive Data A reference range for this assay has not been established for patients with an unknown legal sex. Please refer to the laboratory test catalog for established sex-specific reference intervals. Current interpretive data was last revised on 2023. MCV 90.0 81.3 - 96.4 fL [facility] MCH 30.3 27.1 - 33.3 pg [facility] MCHC 33.7 32.3 - 35.7 g/dL [facility] RDW CV 13.3 11.1 - 14.9 % [facility] RDW SD 43.4 35.7 - 48.1 fL [facility] NRBC abs 0.04(H) 0.00 - 0.01 K/cumm [facility] Blood 05/05/2023 12:1 2 AM ENGRAVING PLATE MAKER 05/05/2023 12:20 AM ENGRAVING PLATE MAKER Faustino Herrera MD LAB BLOOD ORDERABLES Final Result [facility] [place] [address] * (ABNORMAL) Blood gas, arterial (05/04/2023 10:30 PM ENGRAVING PLATE MAKER) pH, Art 7.40 7.35 - 7.45 [facility] PCO2, Arterial 46(H) 35 - 45 mmHg [facility] PO2, Arterial 101 83 - 108 mmHg [facility] HCO3 Art (Calculated) 30 20 - 30 mmol/L [facility] BE, art 4 mmol/L [facility] Comment: Interpretive Data No Reference Range Established Current Interpretive Data was last revised on 2017 O2 Sat Art (Measured) 99(H) 90 - 95 % [facility] Blood 05/04/2023 10:3 0 PM ENGRAVING PLATE MAKER 05/04/2023 10:39 PM ENGRAVING PLATE MAKER us Faustino Herrera MD LAB BLOOD ORDERABLES Final Result Performing Organization Address [facility] de Phone Number [facility] [place] [address] * Potassium, whole blood (05/04/2023 10:30 PM ENGRAVING PLATE MAKER) Potassium, bld 4.6 3.3 - 4.9 mmol/L [facility] Blood 05/04/2023 10:3 0 PM ENGRAVING PLATE MAKER 05/04/2023 10:39 PM ENGRAVING PLATE MAKER us Anderson Tolentino Jr., TREE LAB BLOOD ORDERABLE S Final Result Performing Organization Address [facility] de Phone Number [facility] [place] [address] * (ABNORMAL) Triglycerides (05/04/2023 10:30 PM ENGRAVING PLATE MAKER) Triglycerides 179(H) <=149 mg/dL [facility] Comment: Interpretive Data Ages < [...] on 2018. Blood 05/04/2023 10:3 0 PM ENGRAVING PLATE MAKER 05/04/2023 10:42 PM ENGRAVING PLATE MAKER us Radha Duran BUSINESS PROCESS ARCHITECT LAB BLOOD ORDERABLES Final Re sult [facility] [place] [address] * XR Chest 1 View (05/04/2023 8:58 PM ENGRAVING PLATE MAKER) Anatomical Region Laterality Modality Body, Chest N/A Computed Radiogr aphy 05/05/2023 9:48 AM ENGRAVING PLATE MAKER Impressions 05/05/2023 11:41 AM ENGRAVING PLATE MAKER The current study is compared with the [...] Marlee Jimenez M.D. Narrative 05/05/2023 11:41 AM ENGRAVING PLATE MAKER EXAMINATION: 1 view chest radiograph Procedure Note [...] * Potassium, whole blood (05/04/2023 6:31 PM ENGRAVING PLATE MAKER) [facility] Potassium, bld 3.8 3.3 - 4.9 mmol/L [facility] Blood 05/04/2023 6:31 PM ENGRAVING PLATE MAKER 05/04/2023 6:39 PM ENGRAVING PLATE MAKER us Anderson Tolentino Jr., TREE LAB BLOOD ORDERABLE S Final Result Performing Organization Address City/State/[facility] Co de Phone Number [facility] [place] [address] * Critical Care (05/04/2023 3:00 PM ENGRAVING PLATE MAKER) Narrative Carline Jerome MD - 05/04/2023 3:00 PM ENGRAVING PLATE MAKER Carline Jerome MD ? 05/04/2023 ??3:01 PM [...] plan with the ICU team and other medical/jewelry consultant staff, making frequent assessments and decisions [...] Result * POCT glucose (05/04/2023 1:42 PM ENGRAVING PLATE MAKER) Glucose, POC 108 70 - 199 mg/dL [facility] Blood 05/04/2023 1:42 PM ENGRAVING PLATE MAKER 05/04/2023 1:42 PM ENGRAVING PLATE MAKER Faustino Herrera MD LAB POCT ORDERABLES - ROSIE CE Final Result [facility] Department [place] [address] * Potassium, whole blood (05/04/2023 11:27 AM ENGRAVING PLATE MAKER) [facility] Potassium, bld 4.2 3.3 - 4.9 mmol/L [facility] Comment:Hemolyzed; results m ay be falsely elevated. Blood 05/04/2023 11:2 7 AM ENGRAVING PLATE MAKER 05/04/2023 11:34 AM ENGRAVING PLATE MAKER us Anderson Tolentino Jr., BUSINESS PROCESS ARCHITECT LAB BLOOD ORDERABLE S Final Result Performing Organization Address City/[facility] Co de Phone Number [facility] [place] [place] [address] * (ABNORMAL) Blood gas, arterial (05/04/2023 11:23 AM ENGRAVING PLATE MAKER) [facility] pH, Art 7.33(L) 7.35 - 7.45 [facility] PCO2, Arterial 44 35 - 45 mmHg [facility] PO2, Arterial 177(H) 83 - 108 mmHg [facility] HCO3 Art (Calculated) 24 20 - 30 mmol/L [facility] BE, art -2 mmol/L [facility] Comment: Interpretive Data No Reference Range Established Current Interpretive Data was last revised on 2017 O2 Sat Art (Measured) 99(H) 90 - 95 % [facility] Blood 05/04/2023 11:2 3 AM ENGRAVING PLATE MAKER 05/04/2023 11:34 AM ENGRAVING PLATE MAKER us Faustino Herrera MD LAB BLOOD ORDERABLES Final Result [facility] [place] [address] * Type and screen (05/04/2023 11:23 AM ENGRAVING PLATE MAKER) [facility] ABO Rh A Positive Ellen, indirect Negative [facility] Blood 05/04/2023 11:2 3 AM ENGRAVING PLATE MAKER 05/04/2023 11:38 AM ENGRAVING PLATE MAKER Narrative [facility] - 05/04/2023 12:[address] ENGRAVING PLATE MAKER Has the patient had Daratumumab or Isatuximab in the past 6 months?->Unknown Faustino Herrera MD LAB BLOOD BANK TEST ORDERA BLES Final Result Performing Organization Address City/[facility]/ZIP Co de Phone Number [facility] [place] [address] * POCT glucose (05/04/2023 7:48 AM ENGRAVING PLATE MAKER) Glucose, POC 99 70 - 199 mg/dL [facility] Blood 05/04/2023 7:48 AM ENGRAVING PLATE MAKER 05/04/2023 7:48 AM ENGRAVING PLATE MAKER Faustino Herrera MD LAB POCT ORDERABLES - ROSIE CE Final Result Performing Organization Address [facility] Co de Phone Number [facility] [place] [place] [address] * (ABNORMAL) POC Blood Gas and Chemistries, Arterial - (05/04/2023 3:03 AM ENGRAVING PLATE MAKER) pH, Art POC 7.34(L) 7.35 - 7.45 [facility] pCO2, Art POC 38 35 - 45 mmHg [facility] pO2, Art POC 73(L) 83 - 108 mmHg [facility] Na, POC 141 135 - 145 mmol/L [facility] K POC 3.5 3.3 - 4.9 mmol/L [facility] Comment: Interpretive Data This method is not able to assess for hemolysis, which may falsely increase potassium concentrations. If further testing is needed to evaluate this result, consider in-laboratory plasma potassium. Current Interpretive Data was last revised on 2022. Cl, POC 112(H) 97 - 110 mmol/L [facility] Ionized Ca, POC 4.33(L) 4.50 - 5.10 mg/dL [facility] Glucose, POC 115 70 - 199 mg/dL [facility] Lactate, POC 0.8 0.7 - 2.2 mmol/L [facility] SO2 (natalia) arterial 97(H) 90 - 95 % [facility] Base excess, POC -4.8 mmol/L [facility] HCO3, Art POC 20 20 - 30 mmol/L [facility] Hct, POC 26.0(L) 41.4 - 51.6 % [facility] O2 Sat, Art POC (Calc) 94 % [facility] Total Hb, POC 8.7(L) 13.8 - 17.2 g/dL [facility] Blood 05/04/2023 3:03 AM ENGRAVING PLATE MAKER 05/04/2023 3:03 AM ENGRAVING PLATE MAKER Faustino Herrrea MD LAB POCT ORDERABLES - ROSIE CE Final Result Performing Organization Address [facility] de Phone Number [facility] [place] [address] * (ABNORMAL) Urinalysis, microscopic only (05/04/2023 2:14 AM ENGRAVING PLATE MAKER) Pathologist [facility] WBC, ur 0-5 0 - 5 /HPF [facility] RBC, ur >50(A) 0 - 2 /HPF [facility] Mucous, ur Present(A) [facility] Hyaline casts, ur 1-5 0 - 10 /LPF [facility] Urine 05/04/2023 2:14 AM ENGRAVING PLATE MAKER 05/04/2023 2:21 AM ENGRAVING PLATE MAKER Faustino Herrera MD LAB URINE ORDERABLES Final Result Performing Organization Address [facility] Co de Phone Number [facility] [place] [address] * (ABNORMAL) Urinalysis reflex to microscopic (05/04/2023 2:14 AM ENGRAVING PLATE MAKER) Color, ur Straw Yellow [facility] Clarity, ur Clear Clear [facility] Specific gravity, ur 1.011 1.003 - 1.030 [facility] pH, urine 5.5 [facility] Comment: Interpretive Data ? Urine pH is affected by diet, medications, systemic acid-base disturbances, and renal tubular function. ??pH may affect urinary stone formation. ??For example, urine pH below 6.0 may help reduce the tendency for calcium phosphate stones and pH greater than 6.0 may reduce the tendency for uric acid stone formation. Source: [facility] Current Interpretive Data was last revised on 2017 Protein, ur ql Trace Negative [facility] Glucose, ur ql Negative Negative [facility] Ketones, ur Negative Negative [facility] Bilirubin, ur Negative Negative [facility] Blood, ur 3+(A) Negative [facility] Urobilinogen, ur <2.0 <2.0 mg/dL [facility] Nitrite, ur Negative Negative [facility] Leukocyte esterase, ur Negative Negative [facility] UA reflex comment Reflex to microscopic UA will be performed. [facility] Urine 05/04/2023 2:14 AM ENGRAVING PLATE MAKER 05/04/2023 2:21 AM ENGRAVING PLATE MAKER us Faustino Herrera MD LAB URINE ORDERABLES Final Result Performing Organization Address City/State/[facility] Co de Phone Number [facility] [place] [address] * eGFR (05/04/2023 1:20 AM ENGRAVING PLATE MAKER) eGFR 71 >=60 mL/min/1. 73 m2 [facility] Comment: Interpretive Data Reference Interval [...] last reviewed 2021. Blood 05/04/2023 1:20 AM ENGRAVING PLATE MAKER 05/04/2023 1:42 AM ENGRAVING PLATE MAKER Alonzo Duncan MD LAB BLOOD ORDERABLES Fin al Result Performing Organization Address [facility] de Phone Number [facility] [place] [address] * (ABNORMAL) Blood gas, arterial (05/04/2023 1:20 AM ENGRAVING PLATE MAKER) pH, Art 7.32(L) 7.35 - 7.45 [facility] PCO2, Arterial 42 35 - 45 mmHg [facility] PO2, Arterial 90 83 - 108 mmHg [facility] HCO3 Art (Calculated) 22 20 - 30 mmol/L [facility] BE, art -4 mmol/L [facility] Comment: Interpretive Data No Reference Range Established Current Interpretive Data was last revised on 2017 O2 Sat Art (Measured) 97(H) 90 - 95 % [facility] Blood 05/04/2023 1:20 AM ENGRAVING PLATE MAKER 05/04/2023 1:44 AM ENGRAVING PLATE MAKER Faustino Herrera MD LAB BLOOD ORDERABLES Final Result Performing Organization Address [facility] Co de Phone Number [facility] [place] [address] * Blood culture Blood (05/04/2023 1:20 AM ENGRAVING PLATE MAKER) Report Final Report: No growth [facility] Blood 05/04/2023 1:20 AM ENGRAVING PLATE MAKER 05/04/2023 1:44 AM ENGRAVING PLATE MAKER Narrative [facility] - 05/08/2023 7:01 AM ENGRAVING PLATE MAKER Collection->Peripheral 1. ?Blood cultures are incubated for [...] organism identification may be performed using the [employer] Gram-Positive Blood Culture Assay. This assay detects microbial DNA in positive blood culture broth via hybridization of target DNA to capture oligonucleotides on a microarray. This assay has been cleared by the [place] Food and Drug Administration and its performance characteristics have been verified by the [facility] Microbiology Laboratory. 5. ?For questions about this culture, contact the Microbiology Laboratory at [phone]. Interpretive data was last revised on 2019. Faustino Herrera MD LAB MICROBIOLOGY - GENERAL ORDERABLES Final Result [facility] Department [place] [address] * Blood culture Blood (05/04/2023 1:20 AM ENGRAVING PLATE MAKER) Report Final Report: No growth [facility] Blood 05/04/2023 1:20 AM ENGRAVING PLATE MAKER 05/04/2023 1:44 AM ENGRAVING PLATE MAKER Narrative [facility] - 05/08/2023 7:01 AM ENGRAVING PLATE MAKER Collection->Peripheral 1. ?Blood cultures are incubated for [...] organism identification may be performed using the [employer] Gram-Positive Blood Culture Assay. This assay detects microbial DNA in positive blood culture broth via hybridization of target DNA to capture oligonucleotides on a microarray. This assay has been cleared by the [place] Food and Drug Administration and its performance characteristics have been verified by the [facility] Microbiology Laboratory. 5. ?For questions about this culture, contact the Microbiology Laboratory at [phone]. Interpretive data was last revised on 2019. Faustino Herrera MD LAB MICROBIOLOGY - GENERAL ORDERABLES Final Result [facility] [place] [address] * Phosphorus (05/04/2023 1:20 AM ENGRAVING PLATE MAKER) [facility] Phosphorus, pl 2.8 2.3 - 4.5 mg/dL [facility] Comment:Hemolyzed; result ma y be falsely elevated Blood 05/04/2023 1:20 AM ENGRAVING PLATE MAKER 05/04/2023 1:42 AM ENGRAVING PLATE MAKER Faustino Herrera MD LAB BLOOD ORDERABLES Final Result Performing Organization Address City/[facility]/ZIP Co de Phone Number [facility] [place] [address] * Magnesium (05/04/2023 1:20 AM ENGRAVING PLATE MAKER) [facility] Magnesium 2.0 1.4 - 2.5 mg/dL [facility] Blood 05/04/2023 1:20 AM ENGRAVING PLATE MAKER 05/04/2023 1:42 AM ENGRAVING PLATE MAKER Faustino Herrera MD LAB BLOOD ORDERABLES Final Result Performing Organization Address [facility] de Phone Number [facility] [place] [address] * (ABNORMAL) Basic metabolic panel (05/04/2023 1:20 AM ENGRAVING PLATE MAKER) [facility] Sodium 140 135 - 145 mmol/L [facility] Potassium, pl See Comment 3.3 - 4.9 mmol/L [facility] Comment:Credited; Hemolyzed Specimen Chloride 109 97 - 110 mmol/L [facility] CO2 23 22 - 32 mmol/L [facility] Anion gap 8 2 - 15 mmol/L [facility] BUN 9 6 - 25 mg/dL [facility] Creatinine 1.38(H) 0.80 - 1.30 mg/dL [facility] Glucose 92 70 - 199 mg/dL [facility] Comment: Interpretive Data Fasting glucose [...] 2022. Calcium 7.3(L) 8.5 - 10.3 mg/dL [facility] Blood 05/04/2023 1:20 AM ENGRAVING PLATE MAKER 05/04/2023 1:42 AM ENGRAVING PLATE MAKER Faustino Herrera MD LAB BLOOD ORDERABLES Final Result [facility] [place] [address] * (ABNORMAL) CBC without differential (05/04/2023 1:20 AM ENGRAVING PLATE MAKER) [facility] WBC 13.5(H) 3.8 - 9.9 K/cumm [facility] Hgb 9.1(L) 13.0 - 17.5 g/dL [facility] Comment: Interpretive Data A reference range for this assay has not been established for patients with an unknown legal sex. Please refer to the laboratory test catalog for established sex-specific reference intervals. Current interpretive data was last revised on 2023. Hct 25.2(L) 38.9 - 50.3 % [facility] Comment: Interpretive Data A reference range for this assay has not been established for patients with an unknown legal sex. Please refer to the laboratory test catalog for established sex-specific reference intervals. Current interpretive data was last revised on 2023. Plt 115(L) 150 - 400 K/cumm [facility] MPV 10.6 9.1 - 12.3 fL [facility] RBC 2.89(L) 4.30 - 5.80 M/cumm [facility] Comment: Interpretive Data A reference range for this assay has not been established for patients with an unknown legal sex. Please refer to the laboratory test catalog for established sex-specific reference intervals. Current interpretive data was last revised on 2023. MCV 87.2 81.3 - 96.4 fL [facility] MCH 31.5 27.1 - 33.3 pg [facility] MCHC 36.1(H) 32.3 - 35.7 g/dL [facility] RDW CV 12.5 11.1 - 14.9 % [facility] RDW SD 40.1 35.7 - 48.1 fL [facility] NRBC abs 0.11(H) 0.00 - 0.01 K/cumm [facility] Blood 05/04/2023 1:20 AM ENGRAVING PLATE MAKER 05/04/2023 1:42 AM ENGRAVING PLATE MAKER us Faustino Herrera MD LAB BLOOD ORDERABLES Final Result Performing Organization Address [facility] de Phone Number [facility] [place] [address] * (ABNORMAL) Triglycerides (05/04/2023 1:20 AM ENGRAVING PLATE MAKER) Triglycerides 895(H) <=149 mg/dL [facility] Comment: Hemolyzed; result may be [...] revised on 2018. Blood 05/04/2023 1:20 AM ENGRAVING PLATE MAKER 05/04/2023 1:42 AM ENGRAVING PLATE MAKER us Nando Mijares MD LAB BLOOD ORDERABLES Albert jose f Result - Final [facility] [place] [address] * XR Chest 1 View (05/03/2023 10:05 PM ENGRAVING PLATE MAKER) Anatomical Region Laterality Modality Body, Chest N/A Digital Radiogra phy 05/04/2023 7:57 AM ENGRAVING PLATE MAKER Impressions 05/04/2023 7:57 AM ENGRAVING PLATE MAKER Comparison to 05/03/2023. There is an endotracheal tube with tip approximately 4.1 cm superior to the sommer. ??Gastric tube extends inferior to the [id number] the study, below the GE junction. ??Right [...] Chung Boone M.D. Narrative 05/04/2023 7:57 AM ENGRAVING PLATE MAKER EXAMINATION: 1 view chest radiograph Procedure Note Chung Boone MD - 05/04/2023 EXAMINATION: 1 view chest radiograph IMPRESSION: Comparison to 05/03/2023. There is an endotracheal tube with tip approximately 4.1 cm superior to the sommer. Gastric tube extends inferior to the [id number]-tv-[id number] the study, below the GE junction. Right [...] IMG XR PROCEDURES Fin al Result * IL INSJ NON-TUNNELED CENTRAL VENOUS CATH AGE 5 YR/> (05/03/2023 9:57 PM ENGRAVING PLATE MAKER) Narrative Carline Jerome MD - 05/03/2023 9:57 PM ENGRAVING PLATE MAKER Thea Rizzo MD ? 05/03/2023 ??9:59 PM Central Line Insertion Date/Time: 05/03/2023 9:57 PM Performed by: Thea Rizzo MD Authorized by: Thea Rizzo MD ?? [place] Protocol: RN Notified of Procedure: yes ?? 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 agrees and accepts Patient's stated name/ [...] (ABNORMAL) Blood gas, arterial (05/03/2023 8:32 PM ENGRAVING PLATE MAKER) pH, Art 7.37 7.35 - 7.45 [facility] PCO2, Arterial 37 35 - 45 mmHg [facility] PO2, Arterial 126(H) 83 - 108 mmHg [facility] HCO3 Art (Calculated) 22 20 - 30 mmol/L [facility] BE, art -3 mmol/L [facility] Comment: Interpretive Data No Reference Range Established Current Interpretive Data was last revised on 2017 O2 Sat Art (Measured) 99(H) 90 - 95 % [facility] Blood 05/03/2023 8:32 PM ENGRAVING PLATE MAKER 05/03/2023 8:55 PM ENGRAVING PLATE MAKER us Faustino Herrera MD LAB BLOOD ORDERABLES Final Result Performing Organization Address City/[facility]/ZIP Co de Phone Number [facility] Department [place] [address] * Potassium, whole blood (05/03/2023 5:50 PM ENGRAVING PLATE MAKER) Potassium, bld 3.6 3.3 - 4.9 mmol/L [facility] Blood 05/03/2023 5:50 PM ENGRAVING PLATE MAKER 05/03/2023 5:57 PM ENGRAVING PLATE MAKER us Anderson Tolentino Jr., TREE LAB BLOOD ORDERABLE S Final Result [facility] [place] [address] * (ABNORMAL) Blood gas, arterial (05/03/2023 5:50 PM ENGRAVING PLATE MAKER) pH, Art 7.38 7.35 - 7.45 [facility] PCO2, Arterial 36 35 - 45 mmHg [facility] PO2, Arterial 125(H) 83 - 108 mmHg [facility] HCO3 Art (Calculated) 22 20 - 30 mmol/L [facility] BE, art -4 mmol/L [facility] Comment: Interpretive Data No Reference Range Established Current Interpretive Data was last revised on 2017 O2 Sat Art (Measured) 99(H) 90 - 95 % [facility] Blood 05/03/2023 5:50 PM ENGRAVING PLATE MAKER 05/03/2023 5:57 PM ENGRAVING PLATE MAKER Faustino Herrera MD LAB BLOOD ORDERABLES Final Result Performing Organization Address City/State/[facility] Co sc Phone Number [facility] [place] [address] * XR Chest 1 View (05/03/2023 2:54 PM ENGRAVING PLATE MAKER) Anatomical Region Laterality Modality Body, Chest N/A Computed Radiogr aphy 05/03/2023 4:08 PM ENGRAVING PLATE MAKER Impressions 05/03/2023 4:09 PM ENGRAVING PLATE MAKER Comparison is made to chest radiograph 05/02/2023 [...] Aaron Schafer M.D. Narrative 05/03/2023 4:09 [address] ENGRAVING PLATE MAKER EXAMINATION: 1 view chest radiograph Procedure Note [...] sult * Critical Care (05/03/2023 2:29 PM ENGRAVING PLATE MAKER) Narrative Carline Jerome MD - 05/03/2023 2:29 PM ENGRAVING PLATE MAKER Carline Jerome MD ? 05/03/2023 ??2:30 PM [...] plan with the ICU team and other medical/jewelry consultant staff, making frequent assessments and decisions [...] and Chemistries, Arterial - (05/03/2023 2:09 PM ENGRAVING PLATE MAKER) pH, Art POC 7.38 7.35 - 7.45 [facility] pCO2, Art POC 35 35 - 45 mmHg [facility] pO2, Art POC 59(L) 83 - 108 mmHg [facility] Na, POC 137 135 - 145 mmol/L [facility] K POC 3.4 3.3 - 4.9 mmol/L [facility] Comment: Interpretive Data This method is not able to assess for hemolysis, which may falsely increase potassium concentrations. If further testing is needed to evaluate this result, consider in-laboratory plasma potassium. Current Interpretive Data was last revised on 2022. Cl, POC 113(H) 97 - 110 mmol/L [facility] Ionized Ca, POC 4.32(L) 4.50 - 5.10 mg/dL [facility] Glucose, POC 106 70 - 199 mg/dL [facility] Lactate, POC 0.7 0.7 - 2.2 mmol/L [facility] SO2 (natalia) arterial 92 90 - 95 % [facility] Base excess, POC -3.9 mmol/L [facility] HCO3, Art POC 21 20 - 30 mmol/L [facility] Hct, POC 28.0(L) 41.4 - 51.6 % [facility] O2 Sat, Art POC (Calc) 90 % [facility] Total Hb, POC 9.4(L) 13.8 - 17.2 g/dL [facility] Blood 05/03/2023 2:09 PM ENGRAVING PLATE MAKER 05/03/2023 2:09 PM ENGRAVING PLATE MAKER us Faustino Herrera MD LAB POCT ORDERABLES - ROSIE CE Final Result [facility] [place] [address] * Triglycerides (05/03/2023 1:12 PM ENGRAVING PLATE MAKER) Triglycerides See Comment <=149 mg/dL [facility] Comment: Credited; Hemolyzed Specimen Interpretive [...] revised on 2018. Blood 05/03/2023 1:12 [address] ENGRAVING PLATE MAKER 05/03/2023 1:31 PM ENGRAVING PLATE MAKER us Alonzo Duncan MD LAB BLOOD ORDERABLES Fin al Result [facility] [place] [address] * (ABNORMAL) POC Blood Gas and Chemistries, Arterial - (05/03/2023 11:07 AM ENGRAVING PLATE MAKER) pH, Art POC 7.34(L) 7.35 - 7.45 [facility] pCO2, Art POC 35 35 - 45 mmHg [facility] pO2, Art POC 61(L) 83 - 108 mmHg [facility] Na, POC 137 135 - 145 mmol/L [facility] K POC 3.8 3.3 - 4.9 mmol/L [facility] Comment: Interpretive Data This method is not able to assess for hemolysis, which may falsely increase potassium concentrations. If further testing is needed to evaluate this result, consider in-laboratory plasma potassium. Current Interpretive Data was last revised on 2022. Cl, POC 110 97 - 110 mmol/L [facility] Ionized Ca, POC 4.73 4.50 - 5.10 mg/dL [facility] Glucose, POC 115 70 - 199 mg/dL [facility] Lactate, POC 0.9 0.7 - 2.2 mmol/L [facility] SO2 (natalia) arterial 93 90 - 95 % [facility] Base excess, POC -6.2 mmol/L [facility] HCO3, Art POC 19(L) 20 - 30 mmol/L [facility] Hct, POC 29.0(L) 41.4 - 51.6 % [facility] O2 Sat, Art POC (Calc) 89 % [facility] Total Hb, POC 9.7(L) 13.8 - 17.2 g/dL [facility] Blood 05/03/2023 11:0 7 AM ENGRAVING PLATE MAKER 05/03/2023 11:07 AM ENGRAVING PLATE MAKER us Faustino Herrera MD LAB POCT ORDERABLES - ROSIE CE Final Result [facility] Department [place] [address] * (ABNORMAL) POC Blood Gas and Chemistries, Arterial - (05/03/2023 3:28 AM ENGRAVING PLATE MAKER) pH, Art POC 7.34(L) 7.35 - 7.45 [facility] pCO2, Art POC 28(L) 35 - 45 mmHg [facility] pO2, Art POC 81(L) 83 - 108 mmHg [facility] Na, POC 135 135 - 145 mmol/L [facility] K POC 4.2 3.3 - 4.9 mmol/L [facility] Comment: Interpretive Data This method is not able to assess for hemolysis, which may falsely increase potassium concentrations. If further testing is needed to evaluate this result, consider in-laboratory plasma potassium. Current Interpretive Data was last revised on 2022. Cl, POC 109 97 - 110 mmol/L [facility] Ionized Ca, POC 5.30(H) 4.50 - 5.10 mg/dL [facility] Glucose, POC 124 70 - 199 mg/dL [facility] Lactate, POC 1.0 0.7 - 2.2 mmol/L [facility] SO2 (natalia) arterial 98(H) 90 - 95 % [facility] Base excess, POC -9.4 mmol/L [facility] HCO3, Art POC 15(L) 20 - 30 mmol/L [facility] Hct, POC 32.0(L) 41.4 - 51.6 % [facility] O2 Sat, Art POC (Calc) 95 % [facility] Total Hb, POC 10.6(L) 13.8 - 17.2 g/dL [facility] Blood 05/03/2023 3:28 AM ENGRAVING PLATE MAKER 05/03/2023 3:28 AM ENGRAVING PLATE MAKER us Alonzo Duncan MD LAB POCT ORDERABLES - DE VICE Final Result Performing Organization Address City/[facility]/ZIP Co de Phone Number [facility] [place] [address] * Lactate (05/03/2023 2:08 AM ENGRAVING PLATE MAKER) Pathologist [facility] Lactate 1.2 0.7 - 2.0 mmol/L [facility] Blood 05/03/2023 2:08 AM ENGRAVING PLATE MAKER 05/03/2023 2:49 AM ENGRAVING PLATE MAKER Alonzo Duncan MD LAB BLOOD ORDERABLES Fin al Result Performing Organization Address [facility] de Phone Number [facility] Department [place] [address] * (ABNORMAL) Blood gas, arterial (05/03/2023 2:08 AM ENGRAVING PLATE MAKER) [facility] pH, Art 7.34(L) 7.35 - 7.45 [facility] PCO2, Arterial 32(L) 35 - 45 mmHg [facility] PO2, Arterial 120(H) 83 - 108 mmHg [facility] HCO3 Art (Calculated) 18(L) 20 - 30 mmol/L [facility] BE, art -8 mmol/L [facility] Comment: Interpretive Data No Reference Range Established Current Interpretive Data was last revised on 2017 O2 Sat Art (Measured) 99(H) 90 - 95 % [facility] Blood 05/03/2023 2:08 AM ENGRAVING PLATE MAKER 05/03/2023 2:21 AM ENGRAVING PLATE MAKER Alonzo Duncan MD LAB BLOOD ORDERABLES Fin al Result Performing Organization Address [facility] de Phone Number [facility] Department [place] [address] * TSH reflex to free T4 (05/03/2023 12:10 AM ENGRAVING PLATE MAKER) Pathologist [facility] TSH 1.52 0.30 - 4.20 mcIUnit/mL [facility] Blood 05/03/2023 12:1 0 AM ENGRAVING PLATE MAKER 05/03/2023 12:27 AM ENGRAVING PLATE MAKER us Faustino Herrera MD LAB BLOOD ORDERABLES Final Result Performing Organization Address [facility] Co de Phone Number [facility] [place] [address] * eGFR (05/03/2023 12:10 AM ENGRAVING PLATE MAKER) eGFR 78 >=60 mL/min/1. 73 m2 [facility] Comment: Interpretive Data Reference Interval Normal [...] reviewed 2021. Blood 05/03/2023 12:1 0 AM ENGRAVING PLATE MAKER 05/03/2023 12:27 AM ENGRAVING PLATE MAKER us Anderson Tolentino Jr., BUSINESS PROCESS ARCHITECT LAB BLOOD ORDERABLE S Final Result Performing Organization Address [facility] Co de Phone Number [facility] [place] [address] * Fibrinogen (05/03/2023 12:10 AM ENGRAVING PLATE MAKER) Fibrinogen 274 170 - 400 mg/dL [facility] Blood 05/03/2023 12:1 0 AM ENGRAVING PLATE MAKER 05/03/2023 1:52 AM ENGRAVING PLATE MAKER Nicole Pearce MD LAB BLOOD ORDERABLES Final Res ult Performing Organization Address [facility] de Phone Number [facility] Department [place] [address] * (ABNORMAL) Blood gas, arterial (05/03/2023 12:10 AM ENGRAVING PLATE MAKER) pH, Art 7.35 7.35 - 7.45 [facility] PCO2, Arterial 32(L) 35 - 45 mmHg [facility] PO2, Arterial 110(H) 83 - 108 mmHg [facility] HCO3 Art (Calculated) 18(L) 20 - 30 mmol/L [facility] BE, art -7 mmol/L [facility] Comment: Interpretive Data No Reference Range Established Current Interpretive Data was last revised on 2017 O2 Sat Art (Measured) 98(H) 90 - 95 % [facility] Blood 05/03/2023 12:1 0 AM ENGRAVING PLATE MAKER 05/03/2023 12:23 AM ENGRAVING PLATE MAKER us Anderson Tolentino Jr., NP LAB BLOOD ORDERABLE S Final Result Performing Organization Address [facility] de Phone Number [facility] Department [place] [address] * Lactate (05/03/2023 12:10 AM ENGRAVING PLATE MAKER) Lactate 1.0 0.7 - 2.0 mmol/L [facility] Blood 05/03/2023 12:1 0 AM ENGRAVING PLATE MAKER 05/03/2023 12:27 AM ENGRAVING PLATE MAKER us Anderson Tolentino Jr., TREE LAB BLOOD ORDERABLE S Final Result Performing Organization Address [facility] Co de Phone Number [facility] [place] [address] * (ABNORMAL) Phosphorus (05/03/2023 12:10 AM ENGRAVING PLATE MAKER) [facility] Phosphorus, pl 2.1(L) 2.3 - 4.5 mg/dL [facility] Comment:Hemolyzed; result ma y be falsely elevated Blood 05/03/2023 12:1 0 AM ENGRAVING PLATE MAKER 05/03/2023 12:27 AM ENGRAVING PLATE MAKER Anderson Tolentino Jr., TREE LAB BLOOD ORDERABLE S Final Result Performing Organization Address [facility] Co de Phone Number [facility] [place] [address] * Magnesium (05/03/2023 12:10 AM ENGRAVING PLATE MAKER) [facility] Magnesium 1.9 1.4 - 2.5 mg/dL [facility] Blood 05/03/2023 12:1 0 AM ENGRAVING PLATE MAKER 05/03/2023 12:27 AM ENGRAVING PLATE MAKER Anderson Tolentino Jr., TREE LAB BLOOD ORDERABLE S Final Result Performing Organization Address [facility] Co de Phone Number [facility] [place] [address] * (ABNORMAL) Basic metabolic panel (05/03/2023 12:10 AM ENGRAVING PLATE MAKER) [facility] Sodium 134(L) 135 - 145 mmol/L [facility] Potassium, pl See Comment 3.3 - 4.9 mmol/L [facility] Comment:Credited; Hemolyzed Specimen Chloride 106 97 - 110 mmol/L [facility] CO2 18(L) 22 - 32 mmol/L [facility] Anion gap 10 2 - 15 mmol/L [facility] BUN 16 6 - 25 mg/dL [facility] Creatinine 1.27 0.80 - 1.30 mg/dL [facility] Glucose 118 70 - 199 mg/dL [facility] Comment: Interpretive Data Fasting glucose [...] 2022. Calcium 7.7(L) 8.5 - 10.3 mg/dL [facility] Blood 05/03/2023 12:1 0 AM ENGRAVING PLATE MAKER 05/03/2023 12:27 AM ENGRAVING PLATE MAKER Anderson Tolentino Jr., TREE LAB BLOOD ORDERABLE S Final Result [facility] [place] [address] * (ABNORMAL) CBC without differential (05/03/2023 12:10 AM ENGRAVING PLATE MAKER) [facility] WBC 14.6(H) 3.8 - 9.9 K/cumm [facility] Hgb 10.7(L) 13.0 - 17.5 g/dL [facility] Comment: Interpretive Data A reference range for this assay has not been established for patients with an unknown legal sex. Please refer to the laboratory test catalog for established sex-specific reference intervals. Current interpretive data was last revised on 2023. Hct 29.7(L) 38.9 - 50.3 % [facility] Comment: Interpretive Data A reference range for this assay has not been established for patients with an unknown legal sex. Please refer to the laboratory test catalog for established sex-specific reference intervals. Current interpretive data was last revised on 2023. Plt 121(L) 150 - 400 K/cumm [facility] MPV 10.6 9.1 - 12.3 fL [facility] RBC 3.38(L) 4.30 - 5.80 M/cumm [facility] Comment: Interpretive Data A reference range for this assay has not been established for patients with an unknown legal sex. Please refer to the laboratory test catalog for established sex-specific reference intervals. Current interpretive data was last revised on 2023. MCV 87.9 81.3 - 96.4 fL [facility] MCH 31.7 27.1 - 33.3 pg [facility] MCHC 36.0(H) 32.3 - 35.7 g/dL [facility] RDW CV 12.4 11.1 - 14.9 % [facility] RDW SD 39.9 35.7 - 48.1 fL [facility] NRBC abs 0.00 0.00 - 0.01 K/cumm [facility] Blood 05/03/2023 12:1 0 AM ENGRAVING PLATE MAKER 05/03/2023 12:28 AM ENGRAVING PLATE MAKER us Anderson Tolentino Jr., TREE LAB BLOOD ORDERABLE S Final Result [facility] [place] [address] * (ABNORMAL) POC Blood Gas and Chemistries, Arterial - (05/02/2023 11:16 PM ENGRAVING PLATE MAKER) pH, Art POC 7.34(L) 7.35 - 7.45 [facility] pCO2, Art POC 32(L) 35 - 45 mmHg [facility] pO2, Art POC 70(L) 83 - 108 mmHg [facility] Na, POC 135 135 - 145 mmol/L [facility] K POC 4.1 3.3 - 4.9 mmol/L [facility] Comment: Interpretive Data This method is not able to assess for hemolysis, which may falsely increase potassium concentrations. If further testing is needed to evaluate this result, consider in-laboratory plasma potassium. Current Interpretive Data was last revised on 2022. Cl, POC 110 97 - 110 mmol/L [facility] Ionized Ca, POC 4.68 4.50 - 5.10 mg/dL [facility] Glucose, POC 117 70 - 199 mg/dL [facility] Lactate, POC 0.9 0.7 - 2.2 mmol/L [facility] SO2 (natalia) arterial 96(H) 90 - 95 % [facility] excess, POC -7.6 mmol/L [facility] HCO3, Art POC 17(L) 20 - 30 mmol/L [facility] Hct, POC 31.0(L) 41.4 - 51.6 % [facility] O2 Sat, Art POC (Calc) 93 % [facility] Total Hb, POC 10.4(L) 13.8 - 17.2 g/dL [facility] Blood 05/02/2023 11:1 6 PM ENGRAVING PLATE MAKER 05/02/2023 11:16 PM ENGRAVING PLATE MAKER Alonzo Duncan MD LAB POCT ORDERABLES - DE VICE Final Result [facility] [place] [address] * XR Chest 1 View (05/02/2023 10:54 PM ENGRAVING PLATE MAKER) Anatomical Region Laterality Modality Body, Chest N/A Computed Radiogr aphy 05/03/2023 9:04 AM ENGRAVING PLATE MAKER Impressions 05/03/2023 3:17 PM ENGRAVING PLATE MAKER The current study is compared with the [...] Roldan Harrison M.D. Narrative 05/03/2023 3:17 PM ENGRAVING PLATE MAKER EXAMINATION: 1 view chest radiograph Procedure Note Roladn Harrison MD - 05/03/2023 EXAMINATION: 1 view [...] by: Roldan Harrison M.D. Anderson Tolentino Jr., BUSINESS PROCESS ARCHITECT IMG XR PROCEDURES F inal Result * (ABNORMAL) POC Blood Gas and Chemistries, Arterial - (05/02/2023 10:13 PM ENGRAVING PLATE MAKER) pH, Art POC 7.29(L) 7.35 - 7.45 [facility] pCO2, Art POC 35 35 - 45 mmHg [facility] pO2, Art POC 68(L) 83 - 108 mmHg [facility] Na, POC 136 135 - 145 mmol/L [facility] K POC 3.9 3.3 - 4.9 mmol/L [facility] Comment: Interpretive Data This method is not able to assess for hemolysis, which may falsely increase potassium concentrations. If further testing is needed to evaluate this result, consider in-laboratory plasma potassium. Current Interpretive Data was last revised on 2022. Cl, POC 111(H) 97 - 110 mmol/L [facility] Ionized Ca, POC 4.56 4.50 - 5.10 mg/dL [facility] Glucose, POC 105 70 - 199 mg/dL [facility] Lactate, POC 1.1 0.7 - 2.2 mmol/L [facility] SO2 (natalia) arterial 95 90 - 95 % [facility] Base excess, POC -9.0 mmol/L [facility] HCO3, Art POC 17(L) 20 - 30 mmol/L [facility] Hct, POC 29.0(L) 41.4 - 51.6 % [facility] O2 Sat, Art POC (Calc) 91 % [facility] Total Hb, POC 9.8(L) 13.8 - 17.2 g/dL [facility] Blood 05/02/2023 10:1 3 PM ENGRAVING PLATE MAKER 05/02/2023 10:13 PM ENGRAVING PLATE MAKER us Alonzo Duncan MD LAB POCT ORDERABLES - DE VICE Final Result [facility] [place] [address] * eGFR (05/02/2023 9:55 PM ENGRAVING PLATE MAKER) eGFR 72 >=60 mL/min/1. 73 m2 [facility] Comment: Interpretive Data Reference Interval [...] last reviewed 2021. Blood 05/02/2023 9:55 PM ENGRAVING PLATE MAKER 05/02/2023 10:39 PM ENGRAVING PLATE MAKER Anderson Tolentino Jr., TREE LAB BLOOD ORDERABLE S Final Result Performing Organization Address City/[facility] Co de Phone Number [facility] [place] [address] * Calcium, ionized (05/02/2023 9:55 PM ENGRAVING PLATE MAKER) Calcium, Ionized 4.61 4.50 - 5.10 mg/dL [facility] Blood 05/02/2023 9:55 PM ENGRAVING PLATE MAKER 05/02/2023 10:17 PM ENGRAVING PLATE MAKER Anderson Tolentino Jr., TREE LAB BLOOD ORDERABLE S Final Result Performing Organization Address [facility] [place] [address] * Magnesium (05/02/2023 9:55 PM ENGRAVING PLATE MAKER) Magnesium 1.8 1.4 - 2.5 mg/dL [facility] Blood 05/02/2023 9:55 PM ENGRAVING PLATE MAKER 05/02/2023 10:17 PM ENGRAVING PLATE MAKER Anderson Tolentino Jr., NP LAB BLOOD ORDERABLE S Final Result Performing Organization Address [facility] [place] [address] * (ABNORMAL) Basic metabolic panel (05/02/2023 9:55 PM ENGRAVING PLATE MAKER) Sodium 136 135 - 145 mmol/L [facility] Potassium, pl 4.5 3.3 - 4.9 mmol/L [facility] Comment:Hemolyzed; Potassium value may be falsely elevated by as much as 0.6-1.0 mmol/L. Suggest redraw and reanalysis. Chloride 107 97 - 110 mmol/L [facility] CO2 20(L) 22 - 32 mmol/L [facility] Anion gap 9 2 - 15 mmol/L [facility] BUN 15 6 - 25 mg/dL [facility] Creatinine 1.36(H) 0.80 - 1.30 mg/dL [facility] Glucose 105 70 - 199 mg/dL [facility] Comment: Interpretive Data Fasting glucose [...] 2022. Calcium 7.6(L) 8.5 - 10.3 mg/dL [facility] Blood 05/02/2023 9:55 PM ENGRAVING PLATE MAKER 05/02/2023 10:17 PM ENGRAVING PLATE MAKER Anderson Tolentino Jr., TREE LAB BLOOD ORDERABLE S Final Result [facility] [place] [address] * Phosphorus (05/02/2023 9:55 PM ENGRAVING PLATE MAKER) Pathologist [facility] Phosphorus, pl 3.5 2.3 - 4.5 mg/dL [facility] Blood 05/02/2023 9:55 PM ENGRAVING PLATE MAKER 05/02/2023 10:17 PM ENGRAVING PLATE MAKER Anderson Tolentino Jr., NP LAB BLOOD ORDERABLE S Final Result [facility] [place] [address] * (ABNORMAL) CBC without differential (05/02/2023 9:33 PM ENGRAVING PLATE MAKER) [facility] WBC 12.4(H) 3.8 - 9.9 K/cumm [facility] Hgb 9.9(L) 13.0 - 17.5 g/dL [facility] Comment: Interpretive Data A reference range for this assay has not been established for patients with an unknown legal sex. Please refer to the laboratory test catalog for established sex-specific reference intervals. Current interpretive data was last revised on 2023. Hct 28.8(L) 38.9 - 50.3 % [facility] Comment: Interpretive Data A reference range for this assay has not been established for patients with an unknown legal sex. Please refer to the laboratory test catalog for established sex-specific reference intervals. Current interpretive data was last revised on 2023. Plt 105(L) 150 - 400 K/cumm [facility] MPV 10.1 9.1 - 12.3 fL [facility] RBC 3.18(L) 4.30 - 5.80 M/cumm [facility] Comment: Interpretive Data A reference range for this assay has not been established for patients with an unknown legal sex. Please refer to the laboratory test catalog for established sex-specific reference intervals. Current interpretive data was last revised on 2023. MCV 90.6 81.3 - 96.4 fL [facility] MCH 31.1 27.1 - 33.3 pg [facility] MCHC 34.4 32.3 - 35.7 g/dL [facility] RDW CV 12.4 11.1 - 14.9 % [facility] RDW SD 40.8 35.7 - 48.1 fL [facility] NRBC abs 0.03(H) 0.00 - 0.01 K/cumm [facility] Blood 05/02/2023 9:33 PM ENGRAVING PLATE MAKER 05/02/2023 10:23 PM ENGRAVING PLATE MAKER us Anderson Tolentino Jr., TREE LAB BLOOD ORDERABLE S Final Result [facility] [place] [address] * (ABNORMAL) POC Blood Gas and Chemistries, Arterial - (05/02/2023 9:29 PM ENGRAVING PLATE MAKER) pH, Art POC 7.27(L) 7.35 - 7.45 [facility] pCO2, Art POC 41 35 - 45 mmHg [facility] pO2, Art POC 56(L) 83 - 108 mmHg [facility] Na, POC 137 135 - 145 mmol/L [facility] K POC 4.0 3.3 - 4.9 mmol/L [facility] Comment: Interpretive Data This method is not able to assess for hemolysis, which may falsely increase potassium concentrations. If further testing is needed to evaluate this result, consider in-laboratory plasma potassium. Current Interpretive Data was last revised on 2022. Cl, POC 111(H) 97 - 110 mmol/L [facility] Ionized Ca, POC 4.67 4.50 - 5.10 mg/dL [facility] Glucose, POC 101 70 - 199 mg/dL [facility] Lactate, POC 1.0 0.7 - 2.2 mmol/L [facility] SO2 (natalia) arterial 89(L) 90 - 95 % [facility] Base excess, POC -7.6 mmol/L [facility] HCO3, Art POC 19(L) 20 - 30 mmol/L [facility] Hct, POC 30.0(L) 41.4 - 51.6 % [facility] O2 Sat, Art POC (Calc) 84 % [facility] Total Hb, POC 9.9(L) 13.8 - 17.2 g/dL [facility] Blood 05/02/2023 9:29 PM ENGRAVING PLATE MAKER 05/02/2023 9:29 PM ENGRAVING PLATE MAKER us Alonzo Duncan MD LAB POCT ORDERABLES - DE VICE Final Result Performing Organization Address [facility] Co de Phone Number [facility] [place] [address] * THORACIC ENDOVASCULAR REPAIR - AORTIC (05/02/2023 9:20 PM ENGRAVING PLATE MAKER) Anatomical Region Laterality Modality X-Ray Angiograph y Narrative 05/03/2023 5:06 AM ENGRAVING PLATE MAKER Please see OpNote for result. us Faustino Herrera MD SURGICAL CASE ORDERS Final Result * POCT Activated clotting time, low range (05/02/2023 7:26 PM ENGRAVING PLATE MAKER) ACT 149 123 - 168 sec [facility] POC Performer 7239 [facility] POC Device Number [id number] [facility] Blood 05/02/2023 7:26 PM ENGRAVING PLATE MAKER 05/02/2023 7:26 PM ENGRAVING PLATE MAKER us Alonzo Duncan MD LAB POCT ORDERABLES - DE VICE Final Result Performing Organization Address [facility] Co de Phone Number [facility] [place] [address] * (ABNORMAL) POCT Activated clotting time, low range (05/02/2023 7:01 PM ENGRAVING PLATE MAKER) ACT 327(H) 123 - 168 sec [facility] POC Performer 7239 [facility] POC Device Number [id number] [facility] Blood 05/02/2023 7:01 PM ENGRAVING PLATE MAKER 05/02/2023 7:01 PM ENGRAVING PLATE MAKER us Alonzo Duncan MD LAB POCT ORDERABLES - DE VICE Final Result Performing Organization Address [facility] Co de Phone Number [facility] Department [place] [address] * (ABNORMAL) POCT Activated clotting time, low range (05/02/2023 6:27 PM ENGRAVING PLATE MAKER) ACT 322(H) 123 - 168 sec [facility] POC Performer 7239 [facility] POC Device Number [id number] [facility] Blood 05/02/2023 6:27 PM ENGRAVING PLATE MAKER 05/02/2023 6:27 PM ENGRAVING PLATE MAKER Alonzo Duncan MD LAB POCT ORDERABLES - DE VICE Final Result Performing Organization Address [facility] Co de Phone Number [facility] Department [place] [address] * (ABNORMAL) POCT Activated clotting time, low range (05/02/2023 6:02 PM ENGRAVING PLATE MAKER) ACT 331(H) 123 - 168 sec [facility] POC Performer 7218 [facility] POC Device Number [id number] [facility] Blood 05/02/2023 6:02 PM ENGRAVING PLATE MAKER 05/02/2023 6:02 PM ENGRAVING PLATE MAKER us Alonzo Duncan MD LAB POCT ORDERABLES - DE VICE Final Result Performing Organization Address [facility] de Phone Number [facility] Department [place] [address] * Critical Care (05/02/2023 5:26 PM ENGRAVING PLATE MAKER) Narrative Carline Jerome MD - 05/02/2023 5:26 PM ENGRAVING PLATE MAKER Carline Jerome MD ? 05/02/2023 ??5:29 PM [...] plan with the ICU team and other medical/jewelry consultant staff, making frequent assessments and decisions [...] Final Result * eGFR (05/02/2023 4:00 PM ENGRAVING PLATE MAKER) [facility] eGFR 84 >=60 mL/min/1. 73 m2 [facility] Comment: Interpretive Data Reference Interval Normal [...] last reviewed 2021. Blood 05/02/2023 4:00 PM ENGRAVING PLATE MAKER 05/02/2023 4:29 PM ENGRAVING PLATE MAKER us Alonzo Duncan MD LAB BLOOD ORDERABLES Fin al Result [facility] [place] [address] * (ABNORMAL) Comprehensive metabolic panel (05/02/2023 4:00 PM ENGRAVING PLATE MAKER) Sodium 134(L) 135 - 145 mmol/L [facility] Potassium, pl See Comment 3.3 - 4.9 mmol/L [facility] Comment:Credited; Hemolyzed Specimen Chloride 103 97 - 110 mmol/L [facility] CO2 16(L) 22 - 32 mmol/L [facility] Anion gap 15 2 - 15 mmol/L [facility] BUN 15 6 - 25 mg/dL [facility] Creatinine 1.19 0.80 - 1.30 mg/dL [facility] Glucose 102 70 - 199 mg/dL [facility] Comment: Interpretive Data Fasting glucose [...] 2022. Calcium 8.3(L) 8.5 - 10.3 mg/dL [facility] Bilirubin, total 0.5 0.1 - 1.2 mg/dL [facility] Protein, pl 6.5 6.5 - 8.5 g/dL [facility] Albumin 3.5 3.5 - 5.0 g/dL [facility] Alk phos 59 40 - 130 Units/L [facility] Comment:Hemolyzed; result ma y be falsely decreased ALT See Comment 7 - 55 Units/L [facility] Comment:Credited; Hemolyzed Specimen AST See Comment 10 - 50 Units/L [facility] Comment:Credited; Hemolyzed Specimen Blood 05/02/2023 4:00 PM ENGRAVING PLATE MAKER 05/02/2023 4:29 PM ENGRAVING PLATE MAKER Alnozo Duncan MD LAB BLOOD ORDERABLES Fin al Result Performing Organization Address [facility]/ZIP Co de Phone Number [facility] [place] [address] * Lactate (05/02/2023 4:00 PM ENGRAVING PLATE MAKER) Pathologist [facility] Lactate 0.9 0.7 - 2.0 mmol/L [facility] Blood 05/02/2023 4:00 PM ENGRAVING PLATE MAKER 05/02/2023 4:29 PM ENGRAVING PLATE MAKER Faustino Elias MD LAB BLOOD ORDERABLES Final Result Performing Organization Address [facility]/ZIP Co de Phone Number [facility] [place] [address] * (ABNORMAL) CBC without differential (05/02/2023 4:00 PM ENGRAVING PLATE MAKER) WBC 15.0(H) 3.8 - 9.9 K/cumm [facility] Hgb 10.9(L) 13.0 - 17.5 g/dL [facility] Comment: Interpretive Data A reference range for this assay has not been established for patients with an unknown legal sex. Please refer to the laboratory test catalog for established sex-specific reference intervals. Current interpretive data was last revised on 2023. Hct 30.9(L) 38.9 - 50.3 % [facility] Comment: Interpretive Data A reference range for this assay has not been established for patients with an unknown legal sex. Please refer to the laboratory test catalog for established sex-specific reference intervals. Current interpretive data was last revised on 2023. Plt 119(L) 150 - 400 K/cumm [facility] MPV 10.7 9.1 - 12.3 fL [facility] RBC 3.49(L) 4.30 - 5.80 M/cumm [facility] Comment: Interpretive Data A reference range for this assay has not been established for patients with an unknown legal sex. Please refer to the laboratory test catalog for established sex-specific reference intervals. Current interpretive data was last revised on 2023. MCV 88.5 81.3 - 96.4 fL [facility] MCH 31.2 27.1 - 33.3 pg [facility] MCHC 35.3 32.3 - 35.7 g/dL [facility] RDW CV 12.3 11.1 - 14.9 % [facility] RDW SD 39.9 35.7 - 48.1 fL [facility] NRBC abs 0.00 0.00 - 0.01 K/cumm [facility] Blood 05/02/2023 4:00 PM ENGRAVING PLATE MAKER 05/02/2023 4:29 PM ENGRAVING PLATE MAKER us Faustino Elias MD LAB BLOOD ORDERABLES Final Result [facility] Department [place] [address] * TRANSTHORACIC ECHO (TTE) COMPLETE W DOPPLER/CF W CONTRAST (05/02/2023 12:40 PM ENGRAVING PLATE MAKER) LV EF 41 % CARDIOREPORT Anatomical Region Laterality Modality Ultrasound 05/02/2023 11:3 0 AM ENGRAVING PLATE MAKER Narrative 05/02/2023 12:56 PM ENGRAVING PLATE MAKER Patient name: Eriberto Chau Date of test: 05/02/2023 Type of test: TTE w/Doppler Hospital #: 0 Date of : 1990 (M) Mechanical Handyman: Real Rosales RDCS Referring Physician: GLADYS GALLAGHER MD Contrast Agent: 1.1 ml Optison Administered, (1.9 ml wasted). Contrast Administered by: ICU Nurse Supervised/Interpreted by: Roldan Salcido MD Diagnosis: Location: [facility] Reason for test: chest pain MV Structure: [...] 2=Hypo 3=Akinetic 4=Dyskin./Aneurysm 0=Not visualized) Parasternal Long [place]:MAS=2 BAS=2 MIL=2 GARO=2 Parasternal Short [place]:MAS=2 MIS=2 [place]=2 MIL=2 MAL=2 MA=2 Apical 4 [...] MD By signing this report, the attending telegraph office manager certifies that he or she has personally supervised and interpreted the echocardiogram and has reviewed and or edited and agrees with the written comments contained within the report. Procedure Note Roldan Salcido MD - 05/02/2023 Patient name: Eriberto Chau Date of test: 05/02/2023 Type of test: [facility] #: 0 Date of : 1990 (M) Mechanical Handyman: Real Rosales RDCS Referring Physician: GLADYS GALLAGHER MD Contrast Agent: 1.1 ml Optison Administered, (1.9 ml wasted). Contrast Administered by: ICU Nurse Supervised/Interpreted by: Roldan Salcido MD Diagnosis: Location: [facility] Reason for test: chest pain MV Structure: [...] 2=Hypo 3=Akinetic 4=Dyskin./Aneurysm 0=Not visualized) Parasternal Long [place]:MAS=2 BAS=2 MIL=2 GARO=2 Parasternal Short [place]:MAS=2 MIS=2 [place]=2 MIL=2 MAL=2 MA=2 Apical 4 [...] MD By signing this report, the attending telegraph office manager certifies that he or she has personally supervised and interpreted the echocardiogram and has reviewed and or edited and agrees with the written comments contained within the report. Gladys Gallagher NP CV ECHO PROCEDURES Final Result * Prepare platelets: 4 Units (05/02/2023 10:34 AM ENGRAVING PLATE MAKER) [facility] Product code [id number] Unit Number [id number] [facility] Product Blood Type APOS [facility] Dispense Status PRESUMED TRANSFUSED [facility] Blood (Blood, Venous) 05/02/2023 10:34 AM ENGRAVING PLATE MAKER 05/02/2023 10:34 AM ENGRAVING PLATE MAKER Narrative [facility] - 05/06/2023 4:02 PM ENGRAVING PLATE MAKER Specify Procedure:->Surgery Are special requirements needed? (all products are leukoreduced)->No Date required:-20230502 PLT # of Units:-4-Units Reasons:-Hold for procedure (specify procedure)} Alonzo Duncan MD BLOOD BANK PRODUCT ORDER CAROLINE Final Result Performing Organization Address [facility] de Phone Number [facility] [place] [address] * Prepare RBC: 4 Units (05/02/2023 10:33 AM ENGRAVING PLATE MAKER) [facility] Product code [id number] [facility] Unit Number [id number] 8-P [facility] Product Blood Type APOS [facility] Dispense Status RETURNED [facility] Product code [id number] [facility] Unit Number [id number] 3-R [facility] Product Blood Type APOS [facility] Dispense Status RETURNED [facility] Product code [id number] [facility] Unit Number [id number] 1-S [facility] Product Blood Type APOS [facility] Dispense Status RETURNED [facility] Product code [id number] Unit Number [id number] 4-P [facility] Product Blood Type APOS [facility] Dispense Status RETURNED [facility] Blood 05/02/2023 10:3 3 AM ENGRAVING PLATE MAKER 05/02/2023 10:34 AM ENGRAVING PLATE MAKER Narrative [facility] - 05/03/2023 6:13 AM ENGRAVING PLATE MAKER Are special requirements needed? (All products are leukoreduced and CMV- safe)- >No Date required:-20230502 LRRBC # of [id number] Reasons:-Intra-op transfusion} Alonzo Duncan MD BLOOD BANK PRODUCT ORDER CAROLINE Final Result Performing Organization Address [facility] Co de Phone Number [facility] [place] [address] * eGFR (05/02/2023 10:12 AM ENGRAVING PLATE MAKER) eGFR 84 >=60 mL/min/1. 73 m2 [facility] Comment: Interpretive Data Reference Interval Normal [...] reviewed 2021. Blood 05/02/2023 10:1 2 AM ENGRAVING PLATE MAKER 05/02/2023 10:22 AM ENGRAVING PLATE MAKER us Alonzo Duncan MD LAB BLOOD ORDERABLES Fin al Result [facility] Department of Laboratories [place], [place] [id number] * (ABNORMAL) Comprehensive metabolic panel (05/02/2023 10:12 AM ENGRAVING PLATE MAKER) Pathologist [facility] Sodium 134(L) 135 - 145 mmol/L [facility] Potassium, pl See Comment 3.3 - 4.9 mmol/L [facility] Comment:Credited; Hemolyzed Specimen Chloride 104 97 - 110 mmol/L [facility] CO2 21(L) 22 - 32 mmol/L [facility] Anion gap 9 2 - 15 mmol/L [facility] BUN 18 6 - 25 mg/dL [facility] Creatinine 1.19 0.80 - 1.30 mg/dL [facility] Glucose 104 70 - 199 mg/dL [facility] Comment: Interpretive Data Fasting glucose [...] 2022. Calcium 7.9(L) 8.5 - 10.3 mg/dL [facility] Bilirubin, total 0.4 0.1 - 1.2 mg/dL [facility] Protein, pl 5.9(L) 6.5 - 8.5 g/dL [facility] Albumin 3.3(L) 3.5 - 5.0 g/dL [facility] Alk phos 63 40 - 130 Units/L [facility] Comment:Hemolyzed; result ma y be falsely decreased ALT See Comment 7 - 55 Units/L [facility] Comment:Credited, hemolyzed specimen. AST See Comment 10 - 50 Units/L [facility] Comment:Credited, hemolyzed specimen. Blood 05/02/2023 10:1 2 AM ENGRAVING PLATE MAKER 05/02/2023 10:22 AM ENGRAVING PLATE MAKER us Alonzo Duncan MD LAB BLOOD ORDERABLES Fin al Result [facility] Department [place] [address] * Lactate (05/02/2023 10:12 AM ENGRAVING PLATE MAKER) Lactate 0.9 0.7 - 2.0 mmol/L [facility] Blood 05/02/2023 10:1 2 AM ENGRAVING PLATE MAKER 05/02/2023 10:22 AM ENGRAVING PLATE MAKER Faustino Elias MD LAB BLOOD ORDERABLES Final Result [facility] [place] [address] * (ABNORMAL) CBC without differential (05/02/2023 10:12 AM ENGRAVING PLATE MAKER) [facility] WBC 14.9(H) 3.8 - 9.9 K/cumm [facility] Hgb 10.9(L) 13.0 - 17.5 g/dL [facility] Comment: Interpretive Data A reference range for this assay has not been established for patients with an unknown legal sex. Please refer to the laboratory test catalog for established sex-specific reference intervals. Current interpretive data was last revised on 2023. Hct 31.0(L) 38.9 - 50.3 % [facility] Comment: Interpretive Data A reference range for this assay has not been established for patients with an unknown legal sex. Please refer to the laboratory test catalog for established sex-specific reference intervals. Current interpretive data was last revised on 2023. Plt 108(L) 150 - 400 K/cumm [facility] MPV 10.2 9.1 - 12.3 fL [facility] RBC 3.47(L) 4.30 - 5.80 M/cumm [facility] Comment: Interpretive Data A reference range for this assay has not been established for patients with an unknown legal sex. Please refer to the laboratory test catalog for established sex-specific reference intervals. Current interpretive data was last revised on 2023. MCV 89.3 81.3 - 96.4 fL [facility] MCH 31.4 27.1 - 33.3 pg [facility] MCHC 35.2 32.3 - 35.7 g/dL [facility] RDW CV 12.6 11.1 - 14.9 % [facility] RDW SD 41.1 35.7 - 48.1 fL [facility] NRBC abs 0.02(H) 0.00 - 0.01 K/cumm [facility] Blood 05/02/2023 10:1 2 AM ENGRAVING PLATE MAKER 05/02/2023 10:23 AM ENGRAVING PLATE MAKER us Faustino Elias MD LAB BLOOD ORDERABLES Final Result [facility] [place] [address] * CTA Chest Abdominal Aorta and Bilateral Iliofemoral (05/02/2023 9:47 AM ENGRAVING PLATE MAKER) Anatomical Region Laterality Modality Body N/A Computed Tomogra phy 05/02/2023 10:3 4 AM ENGRAVING PLATE MAKER Impressions 05/02/2023 2:28 PM ENGRAVING PLATE MAKER 1. ??Interval retrograde propagation of a type [...] Timmy Castillo M.D. Narrative 05/02/2023 2:28 PM ENGRAVING PLATE MAKER EXAMINATION: ??CT ANGIOGRAPHY OF CHEST, ABDOMEN, PELVIS, [...] Result * POCT glucose (05/02/2023 4:16 AM ENGRAVING PLATE MAKER) [facility] Glucose, POC 117 70 - 199 mg/dL [facility] Blood 05/02/2023 4:16 AM ENGRAVING PLATE MAKER 05/02/2023 4:16 AM ENGRAVING PLATE MAKER Alonzo Duncan MD LAB POCT ORDERABLES - DE VICE Final Result [facility] [place] [address] * eGFR (05/02/2023 4:10 AM ENGRAVING PLATE MAKER) [facility] eGFR 83 >=60 mL/min/1. 73 m2 [facility] Comment: Interpretive Data Reference Interval [...] last reviewed 2021. Blood 05/02/2023 4:10 AM ENGRAVING PLATE MAKER 05/02/2023 4:31 AM ENGRAVING PLATE MAKER us Alonzo Duncan MD LAB BLOOD ORDERABLES Fin al Result [facility] [place] [address] * (ABNORMAL) Comprehensive metabolic panel (05/02/2023 4:10 AM ENGRAVING PLATE MAKER) Sodium 138 135 - 145 mmol/L [facility] Potassium, pl See Comment 3.3 - 4.9 mmol/L [facility] Comment:Credited; Hemolyzed Specimen Chloride 107 97 - 110 mmol/L [facility] CO2 23 22 - 32 mmol/L [facility] Anion gap 8 2 - 15 mmol/L [facility] BUN 20 6 - 25 mg/dL [facility] Creatinine 1.21 0.80 - 1.30 mg/dL [facility] Glucose 122 70 - 199 mg/dL [facility] Comment: Interpretive Data Fasting glucose [...] 2022. Calcium 7.8(L) 8.5 - 10.3 mg/dL [facility] Bilirubin, total 0.4 0.1 - 1.2 mg/dL [facility] Protein, pl 6.2(L) 6.5 - 8.5 g/dL [facility] Albumin 3.5 3.5 - 5.0 g/dL [facility] Alk phos 65 40 - 130 Units/L [facility] Comment:Hemolyzed; result ma y be falsely decreased ALT See Comment 7 - 55 Units/L [facility] Comment:Credited, hemolyzed specimen. AST See Comment 10 - 50 Units/L [facility] Comment:Credited, hemolyzed specimen. Blood 05/02/2023 4:10 AM ENGRAVING PLATE MAKER 05/02/2023 4:31 AM ENGRAVING PLATE MAKER us Alonzo Duncan MD LAB BLOOD ORDERABLES Fin al Result Performing Organization Address [facility]/ZIP Co de Phone Number [facility] [place] [address] * Lactate (05/02/2023 4:10 AM ENGRAVING PLATE MAKER) Lactate 0.9 0.7 - 2.0 mmol/L [facility] Blood 05/02/2023 4:10 AM ENGRAVING PLATE MAKER 05/02/2023 4:36 AM ENGRAVING PLATE MAKER us Faustino Elias MD LAB BLOOD ORDERABLES Final Result Performing Organization Address [facility] Co de Phone Number [facility] [place] [address] * (ABNORMAL) CBC without differential (05/02/2023 4:10 AM ENGRAVING PLATE MAKER) [facility] WBC 16.1(H) 3.8 - 9.9 K/cumm [facility] Hgb 11.1(L) 13.0 - 17.5 g/dL [facility] Comment: Interpretive Data A reference range for this assay has not been established for patients with an unknown legal sex. Please refer to the laboratory test catalog for established sex-specific reference intervals. Current interpretive data was last revised on 2023. Hct 32.6(L) 38.9 - 50.3 % [facility] Comment: Interpretive Data A reference range for this assay has not been established for patients with an unknown legal sex. Please refer to the laboratory test catalog for established sex-specific reference intervals. Current interpretive data was last revised on 2023. Plt 108(L) 150 - 400 K/cumm [facility] MPV 9.4 9.1 - 12.3 fL [facility] RBC 3.58(L) 4.30 - 5.80 M/cumm [facility] Comment: Interpretive Data A reference range for this assay has not been established for patients with an unknown legal sex. Please refer to the laboratory test catalog for established sex-specific reference intervals. Current interpretive data was last revised on 2023. MCV 91.1 81.3 - 96.4 fL [facility] MCH 31.0 27.1 - 33.3 pg [facility] MCHC 34.0 32.3 - 35.7 g/dL [facility] RDW CV 12.5 11.1 - 14.9 % [facility] RDW SD 41.5 35.7 - 48.1 fL [facility] NRBC abs 0.00 0.00 - 0.01 K/cumm [facility] Blood 05/02/2023 4:10 AM ENGRAVING PLATE MAKER 05/02/2023 4:36 AM ENGRAVING PLATE MAKER us Faustino Elias MD LAB BLOOD ORDERABLES Final Result [facility] [place] [address] * (ABNORMAL) Protime-INR (05/02/2023 4:10 AM ENGRAVING PLATE MAKER) Pathologist [facility] PT 14.9(H) 10.3 - 13.7 sec [facility] INR 1.31(H) 0.90 - 1.20 [facility] Comment: Interpretive data Oral anticoagulant therapeutic ranges: Venous thromboembolism prophylaxis or treatment: 2.0-3.0 CARDIOLOGY Standard range: 2.0-3.0 High-intensity range: 2.5-3.5 Refer to indication-specific guidelines for appropriate target ranges for prosthetic heart valve replacement. Current interpretive data was last revised on 2019. Blood 05/02/2023 4:10 AM ENGRAVING PLATE MAKER 05/02/2023 4:36 AM ENGRAVING PLATE MAKER Marvin Granados MD LAB BLOOD ORDERABLES Final Re sult Performing Organization Address [facility]/ZIP Co de Phone Number [facility] Department [place] [address] * (ABNORMAL) Calcium, ionized (05/02/2023 4:10 AM ENGRAVING PLATE MAKER) [facility] Calcium, Ionized 4.45(L) 4.50 - 5.10 mg/dL [facility] Blood 05/02/2023 4:10 AM ENGRAVING PLATE MAKER 05/02/2023 4:31 AM ENGRAVING PLATE MAKER Marvin Granados MD LAB BLOOD ORDERABLES Final Re sult Performing Organization Address [facility]/State/ZIP Co de Phone Number [facility] [place] [address] * eGFR (05/01/2023 11:52 PM ENGRAVING PLATE MAKER) Pathologist [facility] eGFR 79 >=60 mL/min/1. 73 m2 [facility] Comment: Interpretive Data Reference Interval [...] reviewed 2021. Blood 05/01/2023 11:5 2 PM ENGRAVING PLATE MAKER 05/02/2023 12:04 AM ENGRAVING PLATE MAKER us Alonzo Duncan MD LAB BLOOD ORDERABLES Fin al Result [facility] [place] [address] * (ABNORMAL) Comprehensive metabolic panel (05/01/2023 11:52 PM ENGRAVING PLATE MAKER) Sodium 139 135 - 145 mmol/L [facility] Potassium, pl 4.0 3.3 - 4.9 mmol/L [facility] Chloride 108 97 - 110 mmol/L [facility] CO2 24 22 - 32 mmol/L [facility] Anion gap 7 2 - 15 mmol/L [facility] BUN 22 6 - 25 mg/dL [facility] Creatinine 1.25 0.80 - 1.30 mg/dL [facility] Glucose 108 70 - 199 mg/dL [facility] Comment: Interpretive Data Fasting glucose [...] 2022. Calcium 7.7(L) 8.5 - 10.3 mg/dL [facility] Bilirubin, total 0.4 0.1 - 1.2 mg/dL [facility] Protein, pl 5.8(L) 6.5 - 8.5 g/dL [facility] Albumin 3.7 3.5 - 5.0 g/dL [facility] Alk phos 69 40 - 130 Units/L [facility] ALT 18 7 - 55 Units/L [facility] AST 21 10 - 50 Units/L [facility] Blood 05/01/2023 11:5 2 PM ENGRAVING PLATE MAKER 05/02/2023 12:04 AM ENGRAVING PLATE MAKER us Alonzo Duncan MD LAB BLOOD ORDERABLES Fin al Result Performing Organization Address City/[facility]/ZIP Co de Phone Number [facility] [place] [address] * Lactate (05/01/2023 11:52 PM ENGRAVING PLATE MAKER) Lactate 0.9 0.7 - 2.0 mmol/L [facility] Blood 05/01/2023 11:5 2 PM ENGRAVING PLATE MAKER 05/02/2023 12:04 AM ENGRAVING PLATE MAKER us Faustino Elias MD LAB BLOOD ORDERABLES Final Result Performing Organization Address [facility]/ZIP Co de Phone Number [facility] [place] [address] * (ABNORMAL) CBC without differential (05/01/2023 11:52 PM ENGRAVING PLATE MAKER) [facility] WBC 15.1(H) 3.8 - 9.9 K/cumm [facility] Hgb 10.9(L) 13.0 - 17.5 g/dL [facility] Comment: Interpretive Data A reference range for this assay has not been established for patients with an unknown legal sex. Please refer to the laboratory test catalog for established sex-specific reference intervals. Current interpretive data was last revised on 2023. Hct 31.8(L) 38.9 - 50.3 % [facility] Comment: Interpretive Data A reference range for this assay has not been established for patients with an unknown legal sex. Please refer to the laboratory test catalog for established sex-specific reference intervals. Current interpretive data was last revised on 2023. Plt 104(L) 150 - 400 K/cumm [facility] MPV 9.5 9.1 - 12.3 fL [facility] RBC 3.55(L) 4.30 - 5.80 M/cumm [facility] Comment: Interpretive Data A reference range for this assay has not been established for patients with an unknown legal sex. Please refer to the laboratory test catalog for established sex-specific reference intervals. Current interpretive data was last revised on 2023. MCV 89.6 81.3 - 96.4 fL [facility] MCH 30.7 27.1 - 33.3 pg [facility] MCHC 34.3 32.3 - 35.7 g/dL [facility] RDW CV 12.5 11.1 - 14.9 % [facility] RDW SD 41.4 35.7 - 48.1 fL [facility] NRBC abs 0.00 0.00 - 0.01 K/cumm [facility] Blood 05/01/2023 11:5 2 PM ENGRAVING PLATE MAKER 05/02/2023 12:04 AM ENGRAVING PLATE MAKER us Faustino Elias MD LAB BLOOD ORDERABLES Final Result [facility] [place] [address] * (ABNORMAL) POC Blood Gas and Chemistries, Arterial - (05/01/2023 11:03 [address] ENGRAVING PLATE MAKER) [facility] pH, Art POC 7.37 7.35 - 7.45 [facility] pCO2, Art POC 39 35 - 45 mmHg [facility] pO2, Art POC 102 83 - 108 mmHg [facility] Na, POC 139 135 - 145 mmol/L [facility] K POC 3.9 3.3 - 4.9 mmol/L [facility] Comment: Interpretive Data This method is not able to assess for hemolysis, which may falsely increase potassium concentrations. If further testing is needed to evaluate this result, consider in-laboratory plasma potassium. Current Interpretive Data was last revised on 2022. Cl, POC 109 97 - 110 mmol/L [facility] Ionized Ca, POC 4.51 4.50 - 5.10 mg/dL [facility] Glucose, POC 112 70 - 199 mg/dL [facility] Lactate, POC 1.0 0.7 - 2.2 mmol/L [facility] SO2 (natalia) arterial 99(H) 90 - 95 % [facility] Base excess, POC -2.5 mmol/L [facility] HCO3, Art POC 22 20 - 30 mmol/L [facility] Hct, POC 35.0(L) 41.4 - 51.6 % [facility] O2 Sat, Art POC (Calc) 98 % [facility] Total Hb, POC 11.6(L) 13.8 - 17.2 g/dL [facility] Blood 05/01/2023 11:0 3 PM ENGRAVING PLATE MAKER 05/01/2023 11:03 PM ENGRAVING PLATE MAKER us Alonzo Duncan MD LAB POCT ORDERABLES - DE VICE Final Result [facility] [place] [address] * Potassium, whole blood (05/01/2023 7:28 PM ENGRAVING PLATE MAKER) [facility] Potassium, bld 4.1 3.3 - 4.9 mmol/L [facility] Blood 05/01/2023 7:28 PM ENGRAVING PLATE MAKER 05/01/2023 7:35 PM ENGRAVING PLATE MAKER Alonzo Duncan MD LAB BLOOD ORDERABLES Fin al Result Performing Organization Address [facility] Co de Phone Number [facility] [place] [address] * (ABNORMAL) Hepatic function panel (05/01/2023 7:28 PM ENGRAVING PLATE MAKER) Bilirubin, total 0.4 0.1 - 1.2 mg/dL [facility] Bilirubin, direct <0.2 0.1 - 0.3 mg/dL [facility] Protein, pl 6.2(L) 6.5 - 8.5 g/dL [facility] Albumin 3.5 3.5 - 5.0 g/dL [facility] Alk phos 71 40 - 130 Units/L [facility] ALT 17 7 - 55 Units/L [facility] AST 19 10 - 50 Units/L [facility] Blood 05/01/2023 7:28 PM ENGRAVING PLATE MAKER 05/01/2023 7:43 PM ENGRAVING PLATE MAKER us Alonzo Duncan MD LAB BLOOD ORDERABLES Fin al Result Performing Organization Address [facility] Co de Phone Number [facility] [place] [address] * POCT glucose (05/01/2023 7:27 PM ENGRAVING PLATE MAKER) Glucose, POC 125 70 - 199 mg/dL [facility] Blood 05/01/2023 7:27 PM ENGRAVING PLATE MAKER 05/01/2023 7:27 PM ENGRAVING PLATE MAKER Alonzo Duncan MD LAB POCT ORDERABLES - DE VICE Final Result Performing Organization Address [facility] Co de Phone Number [facility] [place] [address] * XR Chest 1 View (Portable) (05/01/2023 6:41 PM ENGRAVING PLATE MAKER) Anatomical Region Laterality Modality Body, Chest N/A Computed Radiogr aphy 05/02/2023 9:45 AM ENGRAVING PLATE MAKER Impressions 05/02/2023 9:47 AM ENGRAVING PLATE MAKER Comparison is made to chest radiograph 05/01/23 [...] Otoniel Avalos M.D. Narrative 05/02/2023 9:47 AM ENGRAVING PLATE MAKER EXAMINATION: 1 view chest radiograph Procedure Note [...] Resul t * eGFR (05/01/2023 5:50 PM ENGRAVING PLATE MAKER) eGFR 79 >=60 mL/min/1. 73 m2 [facility] Comment: Interpretive Data Reference Interval [...] last reviewed 2021. Blood 05/01/2023 5:50 PM ENGRAVING PLATE MAKER 05/01/2023 6:02 PM ENGRAVING PLATE MAKER Alonzo Duncan MD LAB BLOOD ORDERABLES Fin al Result [facility] Department [place] [address] * (ABNORMAL) Comprehensive metabolic panel (05/01/2023 5:50 PM ENGRAVING PLATE MAKER) [facility] Sodium 139 135 - 145 mmol/L [facility] Potassium, pl See Comment 3.3 - 4.9 mmol/L [facility] Comment:Credited; Hemolyzed Specimen Chloride 106 97 - 110 mmol/L [facility] CO2 23 22 - 32 mmol/L [facility] Anion gap 10 2 - 15 mmol/L [facility] BUN 23 6 - 25 mg/dL [facility] Creatinine 1.26 0.80 - 1.30 mg/dL [facility] Glucose 117 70 - 199 mg/dL [facility] Comment: Interpretive Data Fasting glucose [...] 2022. Calcium 7.8(L) 8.5 - 10.3 mg/dL [facility] Bilirubin, total 0.5 0.1 - 1.2 mg/dL [facility] Protein, pl 6.4(L) 6.5 - 8.5 g/dL [facility] Albumin 3.7 3.5 - 5.0 g/dL [facility] Alk phos 65 40 - 130 Units/L [facility] Comment:Hemolyzed; result ma y be falsely decreased ALT See Comment 7 - 55 Units/L [facility] Comment:Credited; Hemolyzed Specimen AST See Comment 10 - 50 Units/L [facility] Comment:Credited; Hemolyzed Specimen Blood 05/01/2023 5:50 PM ENGRAVING PLATE MAKER 05/01/2023 5:56 PM ENGRAVING PLATE MAKER us Alonzo Duncan MD LAB BLOOD ORDERABLES Fin al Result [facility] Department [place] [address] * Lactate, whole blood (05/01/2023 5:10 PM ENGRAVING PLATE MAKER) Lactate, bld 1.5 0.7 - 2.0 mmol/L [facility] Blood 05/01/2023 5:10 PM ENGRAVING PLATE MAKER 05/01/2023 5:19 PM ENGRAVING PLATE MAKER Alonzo Duncan MD LAB BLOOD ORDERABLES Fin al Result [facility] [place] [address] * POCT glucose (05/01/2023 5:10 PM ENGRAVING PLATE MAKER) Glucose, POC 104 70 - 199 mg/dL [facility] Blood 05/01/2023 5:10 PM ENGRAVING PLATE MAKER 05/01/2023 5:10 PM ENGRAVING PLATE MAKER Alonzo Duncan MD LAB POCT ORDERABLES - DE VICE Final Result Performing Organization Address [facility] Co de Phone Number [facility] [place] [address] * (ABNORMAL) CBC without differential (05/01/2023 5:10 PM ENGRAVING PLATE MAKER) Pathologist [facility] WBC 15.0(H) 3.8 - 9.9 K/cumm [facility] Hgb 11.1(L) 13.0 - 17.5 g/dL [facility] Comment: Interpretive Data A reference range for this assay has not been established for patients with an unknown legal sex. Please refer to the laboratory test catalog for established sex-specific reference intervals. Current interpretive data was last revised on 2023. Hct 32.3(L) 38.9 - 50.3 % [facility] Comment: Interpretive Data A reference range for this assay has not been established for patients with an unknown legal sex. Please refer to the laboratory test catalog for established sex-specific reference intervals. Current interpretive data was last revised on 2023. Plt 110(L) 150 - 400 K/cumm [facility] MPV 9.0(L) 9.1 - 12.3 fL [facility] RBC 3.66(L) 4.30 - 5.80 M/cumm [facility] Comment: Interpretive Data A reference range for this assay has not been established for patients with an unknown legal sex. Please refer to the laboratory test catalog for established sex-specific reference intervals. Current interpretive data was last revised on 2023. MCV 88.3 81.3 - 96.4 fL [facility] MCH 30.3 27.1 - 33.3 pg [facility] MCHC 34.4 32.3 - 35.7 g/dL [facility] RDW CV 12.6 11.1 - 14.9 % [facility] RDW SD 41.1 35.7 - 48.1 fL [facility] NRBC abs 0.00 0.00 - 0.01 K/cumm [facility] Blood 05/01/2023 5:10 PM ENGRAVING PLATE MAKER 05/01/2023 5:19 PM ENGRAVING PLATE MAKER us Faustino Elias MD LAB BLOOD ORDERABLES Final Result Performing Organization Address City/[facility]/ZIP Co de Phone Number [facility] [place] [address] * Sepsis Lactate w/ Reflex (05/01/2023 1:18 PM ENGRAVING PLATE MAKER) Sepsis Lactate 1.9 0.7 - 2.0 mmol/L [facility] Blood 05/01/2023 1:18 PM ENGRAVING PLATE MAKER 05/01/2023 1:28 PM ENGRAVING PLATE MAKER us Lisa Christiansen MD LAB BLOOD ORDERABLES Sally l Result [facility] [place] [address] * [place] CRITICAL CARE ILL/INJURED PATIENT INIT 30-74 MIN (05/01/2023 12:32 PM ENGRAVING PLATE MAKER) Narrative Kameron Wadsworth MD - 05/01/2023 12:32 PM ENGRAVING PLATE MAKER Kameron Wadsworth MD ? 05/01/2023 12:32 PM [...] Result * POCT glucose (05/01/2023 11:40 AM ENGRAVING PLATE MAKER) Pathologist [facility] Glucose, POC 118 70 - 199 mg/dL [facility] Blood 05/01/2023 11:4 0 AM ENGRAVING PLATE MAKER 05/01/2023 11:40 AM ENGRAVING PLATE MAKER us Alonzo Duncan MD LAB POCT ORDERABLES - DE VICE Final Result [facility] Department [place] [address] * Troponin I high-sensitivity (05/01/2023 11:40 AM ENGRAVING PLATE MAKER) Pathologist [facility] Trop I hs 15 <=35 ng/L [facility] Comment: Interpretive Data For further [facility] resources including the diagnostic algorithm and an aid in interpretation, copy and paste this link: [email or web address] Current Interpretive Data last revised 2019. Blood 05/01/2023 11:4 0 AM ENGRAVING PLATE MAKER 05/01/2023 11:48 AM ENGRAVING PLATE MAKER Marvin Granados MD LAB BLOOD ORDERABLES Final Re sult Performing Organization Address [facility] de Phone Number [facility] [place] [address] * (ABNORMAL) Blood gas, arterial (05/01/2023 11:40 AM ENGRAVING PLATE MAKER) pH, Art 7.31(L) 7.35 - 7.45 [facility] PCO2, Arterial 46(H) 35 - 45 mmHg [facility] PO2, Arterial 134(H) 83 - 108 mmHg [facility] HCO3 Art (Calculated) 24 20 - 30 mmol/L [facility] BE, art -3 mmol/L [facility] Comment: Interpretive Data No Reference Range Established Current Interpretive Data was last revised on 2017 O2 Sat Art (Measured) 99(H) 90 - 95 % [facility] Blood 05/01/2023 11:4 0 AM ENGRAVING PLATE MAKER 05/01/2023 11:48 AM ENGRAVING PLATE MAKER Marvin Granados MD LAB BLOOD ORDERABLES Final Re sult Performing Organization Address [facility] Co de Phone Number [facility] [place] [address] * Creatine kinase (CK), total (05/01/2023 11:40 AM ENGRAVING PLATE MAKER) CK 197 40 - 300 Units/L [facility] Blood 05/01/2023 11:4 0 AM ENGRAVING PLATE MAKER 05/01/2023 11:48 AM ENGRAVING PLATE MAKER us Marvin Granados MD LAB BLOOD ORDERABLES Final Re sult Performing Organization Address City/[facility]/ZIP Co de Phone Number [facility] [place] [address] * eGFR (05/01/2023 10:15 AM ENGRAVING PLATE MAKER) eGFR 60 >=60 mL/min/1. 73 m2 [facility] Comment: Interpretive Data Reference Interval [...] reviewed 2021. Blood 05/01/2023 10:1 5 AM ENGRAVING PLATE MAKER 05/01/2023 10:24 AM ENGRAVING PLATE MAKER us Faustino Elias MD LAB BLOOD ORDERABLES Final Result Performing Organization Address City/[facility]/ZIP Co de Phone Number [facility] [place] [address] * (ABNORMAL) Lactate (05/01/2023 10:15 AM ENGRAVING PLATE MAKER) Lactate 2.7(H) 0.7 - 2.0 mmol/L [facility] Blood 05/01/2023 10:1 5 AM ENGRAVING PLATE MAKER 05/01/2023 10:22 AM ENGRAVING PLATE MAKER Faustino Elias MD LAB BLOOD ORDERABLES Final Result [facility] [place] [address] * (ABNORMAL) Comprehensive metabolic panel (05/01/2023 10:15 AM ENGRAVING PLATE MAKER) Pathologist [facility] Sodium 141 135 - 145 mmol/L [facility] Potassium, pl 4.1 3.3 - 4.9 mmol/L [facility] Chloride 105 97 - 110 mmol/L [facility] CO2 25 22 - 32 mmol/L [facility] Anion gap 11 2 - 15 mmol/L [facility] BUN 21 6 - 25 mg/dL [facility] Creatinine 1.57(H) 0.80 - 1.30 mg/dL [facility] Glucose 134 70 - 199 mg/dL [facility] Comment: Interpretive Data Fasting glucose [...] Calcium 8.5 8.5 - 10.3 mg/dL [facility] Bilirubin, total 1.1 0.1 - 1.2 mg/dL [facility] Protein, pl 6.9 6.5 - 8.5 g/dL [facility] Albumin 4.1 3.5 - 5.0 g/dL [facility] Alk phos 80 40 - 130 Units/L [facility] ALT 21 7 - 55 Units/L [facility] AST 21 10 - 50 Units/L [facility] Blood 05/01/2023 10:1 5 AM ENGRAVING PLATE MAKER 05/01/2023 10:22 AM ENGRAVING PLATE MAKER Faustino Elias MD LAB BLOOD ORDERABLES Final Result [facility] [place] [address] * (ABNORMAL) CBC without differential (05/01/2023 10:15 AM ENGRAVING PLATE MAKER) Pathologist [facility] WBC 16.7(H) 3.8 - 9.9 K/cumm [facility] Hgb 12.5(L) 13.0 - 17.5 g/dL [facility] Comment: Interpretive Data A reference range for this assay has not been established for patients with an unknown legal sex. Please refer to the laboratory test catalog for established sex-specific reference intervals. Current interpretive data was last revised on 2023. Hct 37.2(L) 38.9 - 50.3 % [facility] Comment: Interpretive Data A reference range for this assay has not been established for patients with an unknown legal sex. Please refer to the laboratory test catalog for established sex-specific reference intervals. Current interpretive data was last revised on 2023. Plt 109(L) 150 - 400 K/cumm [facility] MPV 8.8(L) 9.1 - 12.3 fL [facility] RBC 4.14(L) 4.30 - 5.80 M/cumm [facility] Comment: Interpretive Data A reference range for this assay has not been established for patients with an unknown legal sex. Please refer to the laboratory test catalog for established sex-specific reference intervals. Current interpretive data was last revised on 2023. MCV 89.9 81.3 - 96.4 fL [facility] MCH 30.2 27.1 - 33.3 pg [facility] MCHC 33.6 32.3 - 35.7 g/dL [facility] RDW CV 12.5 11.1 - 14.9 % [facility] RDW SD 41.0 35.7 - 48.1 fL [facility] NRBC abs 0.00 0.00 - 0.01 K/cumm [facility] Blood 05/01/2023 10:1 5 AM ENGRAVING PLATE MAKER 05/01/2023 10:22 AM ENGRAVING PLATE MAKER us Faustino Elias MD LAB BLOOD ORDERABLES Final Result Performing Organization Address City/State/[facility] Co de Phone Number [facility] [place] [address] * (ABNORMAL) Sepsis Lactate w/ Reflex (05/01/2023 10:15 AM ENGRAVING PLATE MAKER) Sepsis Lactate 2.7(H) 0.7 - 2.0 mmol/L [facility] Blood 05/01/2023 10:1 5 AM ENGRAVING PLATE MAKER 05/01/2023 10:22 AM ENGRAVING PLATE MAKER Lisa Christiansen MD LAB BLOOD ORDERABLES Sally l Result Performing Organization Address [facility] Co de Phone Number [facility] [place] [address] * (ABNORMAL) Sepsis Lactate w/ Reflex (05/01/2023 8:13 AM ENGRAVING PLATE MAKER) Sepsis Lactate 2.1(H) 0.7 - 2.0 mmol/L [facility] Blood 05/01/2023 8:13 AM ENGRAVING PLATE MAKER 05/01/2023 8:25 AM ENGRAVING PLATE MAKER Lisa Christiansen MD LAB BLOOD ORDERABLES Sally l Result Performing Organization Address City/[facility] Co de Phone Number [facility] [place] [address] * Check Sample (05/01/2023 8:13 AM ENGRAVING PLATE MAKER) ABO Rh A Positive [facility] OTHER 05/01/2023 8:13 AM ENGRAVING PLATE MAKER 05/01/2023 8:29 AM ENGRAVING PLATE MAKER us Kameron Wadsworth MD LAB BLOOD ORDERABLES Fin al Result Performing Organization Address [facility] Co de Phone Number [facility] [place] [address] * Type and screen (05/01/2023 7:52 AM ENGRAVING PLATE MAKER) Ellen, indirect Negative ABO Rh A Positive [facility] Blood 05/01/2023 7:52 AM ENGRAVING PLATE MAKER 05/01/2023 8:06 AM ENGRAVING PLATE MAKER Narrative [facility] - 05/01/2023 8:55 AM ENGRAVING PLATE MAKER Has the patient had Daratumumab or Isatuximab in the past 6 months?->Unknown us Faustino Elias MD LAB BLOOD BANK TEST ORDERA BLES Final Result Performing Organization Address [facility] Co de Phone Number [facility] [place] [address] * [place] CRIT[place]/INJURED PATIENT INIT 30-74 MIN (05/01/2023 7:33 AM ENGRAVING PLATE MAKER) Narrative Nagi Landa MD - 05/01/2023 7:33 AM ENGRAVING PLATE MAKER Nagi Landa MD ? 05/01/2023 11:34 PM [...] CT Body Outside Consult (05/01/2023 6:16 AM ENGRAVING PLATE MAKER) Anatomical Region Laterality Modality Body N/A Computed Tomogra phy 05/01/2023 6:26 AM ENGRAVING PLATE MAKER Impressions 05/01/2023 8:52 AM ENGRAVING PLATE MAKER 1. ??Extension of the type B thoracic [...] images may or may not represent the [place] source data set and thus may contain changes that may lower the accuracy of this second-opinion interpretation. Dictated by: Jr Gallagher MD The radiology attending physician has personally reviewed this study, and had reviewed and/or edited this written report and agrees with it. Electronically signed by: Ruthie Malone M.D. Narrative 05/01/2023 8:52 AM ENGRAVING PLATE MAKER EXAMINATION: RADIOLOGY CONSULTATION ON OUTSIDE IMAGING STUDY STUDY INITIALLY PERFORMED: 05/01/[address] [facility]. TYPE OF STUDY: Multiple CT images [...] IMAGING STUDY STUDY INITIALLY PERFORMED: 05/01/[address] [facility]. TYPE OF STUDY: Multiple CT images [...] images may or may not represent the [place] source data set and thus may contain [...] * XR Outside Reference (05/01/2023 6:05 AM ENGRAVING PLATE MAKER) Impressions [facility] - 05/01/2023 6:05 AM ENGRAVING PLATE MAKER These images are for Reference purposes only and have not been reviewed by [facility]iology. ??There will be no report generated by a [facility] Radiologist. Narrative [facility] - 05/01/2023 6:05 AM ENGRAVING PLATE MAKER EXAMINATION: ??Images For Reference Purposes Only Nagi Landa MD IMG XR PROCEDURES Sally l Result [facility] * CT Body Outside Consult (05/01/2023 6:01 AM ENGRAVING PLATE MAKER) Anatomical Region Laterality Modality Body N/A Computed Tomogra phy 05/01/2023 6:18 AM ENGRAVING PLATE MAKER Impressions 05/01/2023 8:52 AM ENGRAVING PLATE MAKER Incompletely imaged Type B aortic dissection, which [...] images may or may not represent the [place] source data set and thus may contain changes that may lower the accuracy of this second-opinion interpretation. Dictated by: Jr Gallagher MD The radiology attending physician has personally reviewed this study, and had reviewed and/or edited this written report and agrees with it. Electronically signed by: Ruthie Malone M.D. Narrative 05/01/2023 8:52 AM ENGRAVING PLATE MAKER EXAMINATION: RADIOLOGY CONSULTATION ON OUTSIDE IMAGING STUDY STUDY INITIALLY PERFORMED: 05/01/[address] [facility]. TYPE OF STUDY: Multiple CT images [...] opacification/mixing occurring from likely fenestration below the [id number]. ??The nonopacification of the false lumen may [...] IMAGING STUDY STUDY INITIALLY PERFORMED: 05/01/[address] [facility]. TYPE OF STUDY: Multiple CT images [...] opacification/mixing occurring from likely fenestration below the [id number]. The nonopacification of the false lumen may [...] images may or may not represent the [place] source data set and thus may contain changes that may lower the accuracy of this second-opinion interpretation. Dictated by: Jr Gallagher MD The radiology attending physician has personally reviewed this study, and had reviewed and/or edited this written report and agrees with it. Electronically signed by: Ruthie Malone M.D. us Nagi Landa MD IMG CT PROCEDURES Sally l Result * [place] ARTL CATHJ/CANNULJ MNTR/TRANSFUSION SPX PRQ (05/01/2023 5:56 AM ENGRAVING PLATE MAKER) Narrative Nagi Landa MD - 05/01/2023 5:56 AM ENGRAVING PLATE MAKER Meron Monterroso MD ? 05/01/2023 ??7:01 AM Arterial line Date/Time: 05/01/2023 5:56 AM Performed by: Meron Monterroso MD Authorized by: Nagi Landa MD ?? [place] Protocol: ??RN Notified of Procedure: yes ?? [...] Final Result * eGFR (05/01/2023 5:19 AM ENGRAVING PLATE MAKER) [facility] eGFR 66 >=60 mL/min/1. 73 m2 [facility] Comment: Interpretive Data Reference Interval Normal [...] last reviewed 2021. Blood 05/01/2023 5:19 AM ENGRAVING PLATE MAKER 05/01/2023 5:31 AM ENGRAVING PLATE MAKER Meron Aguilera MD LAB BLOOD ORDERABLES Final Result Performing Organization Address [facility] de Phone Number [facility] Department [place] [address] * Fentanyl Confirmation, Urine (05/01/2023 5:19 AM ENGRAVING PLATE MAKER) Fentanyl Conf, Ur Confirmed Positive Cutoff 0.3ng/mL [...] needed. Performance characteristics were determined by the [facility] in a manner consistent with CLIA requirement and has not been cleared or approved by the U.S. Food and Drug Administration. Current interpretive data was last revised 2020. Urine 05/01/2023 5:19 AM ENGRAVING PLATE MAKER 05/01/2023 5:31 AM ENGRAVING PLATE MAKER us Meron Aguilera MD LAB URINE ORDERABLES Final Result Performing Organization Address [facility] Co de Phone Number [facility] Department [place] [address] * (ABNORMAL) Urinalysis, microscopic only (05/01/2023 5:19 AM ENGRAVING PLATE MAKER) WBC, ur 0-5 0 - 5 /HPF [facility] RBC, ur 21-50(A) 0 - 2 /HPF [facility] Epithelial cells, squamous, ur 1-5 0 - 5 /HPF [facility] Bacteria, ur Trace(A) [facility] Culture Reflex Comment Reflex conditions for urine culture (WBC >10) not met. [facility] Urine 05/01/2023 5:19 AM ENGRAVING PLATE MAKER 05/01/2023 5:28 AM ENGRAVING PLATE MAKER us Meron Aguilera MD LAB URINE ORDERABLES Final Result [facility] Department [place] [address] * (ABNORMAL) Differential, auto (05/01/2023 5:19 AM ENGRAVING PLATE MAKER) Neutrophil abs 17.9(H) 1.7 - 6.5 K/cumm [facility] Imm gran abs 0.3(H) 0.0 - 0.1 K/cumm [facility] Lymphocyte abs 1.0 0.8 - 3.3 K/cumm [facility] Monocyte abs 1.4(H) 0.2 - 0.8 K/cumm [facility] Eosinophil abs 0.0 0.0 - 0.5 K/cumm [facility] Basophil abs 0.1 0.0 - 0.1 K/cumm [facility] Neutrophil pct 86.9 % [facility] Comment: Interpretive Data Percent cell count reference ranges are not reported, since discordance with absolute values may lead to misinterpretation of CBC data. Current Interpretive Data was last revised on 2017. Imm gran pct 1.4 % [facility] Comment: Interpretive Data Percent cell count reference ranges are not reported, since discordance with absolute values may lead to misinterpretation of CBC data. Current Interpretive Data was last revised on 2017. Lymphocyte pct 4.7 % [facility] Comment: Interpretive Data Percent cell count reference ranges are not reported, since discordance with absolute values may lead to misinterpretation of CBC data. Current Interpretive Data was last revised on 2017. Monocyte pct 6.7 % [facility] Comment: Interpretive Data Percent cell count reference ranges are not reported, since discordance with absolute values may lead to misinterpretation of CBC data. Current Interpretive Data was last revised on 2017. Eosinophil pct 0.0 % [facility] Comment: Interpretive Data Percent cell count reference ranges are not reported, since discordance with absolute values may lead to misinterpretation of CBC data. Current Interpretive Data was last revised on 2017. Basophil pct 0.3 % [facility] Comment: Interpretive Data Percent cell count reference ranges are not reported, since discordance with absolute values may lead to misinterpretation of CBC data. Current Interpretive Data was last revised on 2017. Blood 05/01/2023 5:19 AM ENGRAVING PLATE MAKER 05/01/2023 5:31 AM ENGRAVING PLATE MAKER us Meron Aguilera MD LAB BLOOD ORDERABLES Final Result [facility] Department [place] [address] * (ABNORMAL) Drugs of Abuse Screen, Urine with Reflex Confirmation (05/01/2023 5:19 AM ENGRAVING PLATE MAKER) Amphetamine, ur Not Detected CutOff 500ng/mL [facility] Comment: Interpretive Data - Amphetamines: ??Samples containing greater than 500 ng/mL d-methamphetamine ??or other cross-reacting amphetamine compounds are reported as positive. ??Amphetamine immunoassays are subject to significant false positive rates due to cross-reactivity of non-amphetamine drugs. Confirmatory testing required for definitive results. Current Interpretive Data was last reviewed 2022. Barbiturates, ur Not Detected CutOff 200ng/mL [facility] Comment: Interpretive Data - Barbiturates: ??Samples containing greater than 200 ng/mL secobarbital or other cross-reacting barbiturate compounds are reported as positive. ??False positive and false negative results are possible. Confirmatory testing required for definitive results. Current Interpretive Data was last reviewed 2022. Benzodiazepines, ur Not Detected CutOff 100ng/mL [facility] Comment: Interpretive Data - Benzodiazepines: ??Samples containing greater than 100 ng/mL nordiazepam or other cross-reacting compounds are reported as positive. False positive and false negative results are possible. Confirmatory testing required for definitive results. Current Interpretive Data was last reviewed 2022. Cannabinoids, ur Screen Positive, presumptive (A) CutOff 50 ng/mL [facility] Comment: Interpretive Data - Cannabinoids: ??Samples [...] Phencyclidine, ur Not Detected CutOff 25 ng/mL [facility] Comment: Interpretive Data - Phencyclidine: ??Samples containing greater than 25 ng/mL phencyclidine or other cross-reacting compounds are reported as positive. ??False positive and false negative results are possible. Confirmatory testing required for definitive results. Current Interpretive Data was last reviewed 2022. Urine Creatinine 88 mg/dL [facility] Comment: Interpretive Data Urine Creatinine: < 10 mg/dL is extremely dilute = or > 10 but < 20 mg/dL is dilute = or > 20 mg/dL is normal Current Interpretive Data was last revised on 2017. Urine 05/01/2023 5:19 AM ENGRAVING PLATE MAKER 05/01/2023 5:31 AM ENGRAVING PLATE MAKER Narrative [facility] - 05/01/2023 6:34 AM ENGRAVING PLATE MAKER Drug of Abuse screening is performed by immunoassay for medical purposes only. ??This is not to be used for Pain Management purposes. ??If Detected, confirmation testing will be performed for Amphetamines, Cocaine, Fentanyl, Methadone, Opiates, Oxycodone or Phencyclidine. Meron Aguilera MD LAB URINE ORDERABLES Final Result [facility] Department [place] [address] * (ABNORMAL) Urinalysis reflex to microscopic and culture Urine (05/01/2023 5:19 AM ENGRAVING PLATE MAKER) Color, ur Straw Yellow [facility] Clarity, ur Clear Clear [facility] Specific gravity, ur >1.042(H) 1.003 - 1.030 [facility] pH, urine 6.5 [facility] Comment: Interpretive Data ? Urine pH is affected by diet, medications, systemic acid-base disturbances, and renal tubular function. ??pH may affect urinary stone formation. ??For example, urine pH below 6.0 may help reduce the tendency for calcium phosphate stones and pH greater than 6.0 may reduce the tendency for uric acid stone formation. Source: [facility] Current Interpretive Data was last revised on 2017 Protein, ur ql 1+(A) Negative [facility] Glucose, ur ql Trace(A) Negative [facility] Ketones, ur Negative Negative [facility] Bilirubin, ur Negative Negative [facility] Blood, ur 1+(A) Negative [facility] Urobilinogen, ur <2.0 <2.0 mg/dL [facility] Nitrite, ur Negative Negative [facility] Leukocyte esterase, ur Negative Negative [facility] UA reflex comment Reflex to microscopic UA will be performed. [facility] Urine 05/01/2023 5:19 AM ENGRAVING PLATE MAKER 05/01/2023 5:28 AM ENGRAVING PLATE MAKER Meron Aguilera MD LAB MICROBIOLOGY - GENERAL ORDERABLES Final Result Performing Organization Address [facility] de Phone Number [facility] [place] [address] * aPTT (05/01/2023 5:19 AM ENGRAVING PLATE MAKER) aPTT 34 28 - 38 sec [facility] Comment: Interpretive Data Heparin therapeutic range: 66.0 - 100.0 seconds. Range based on correlation with therapeutic heparin activity range of 0.3 - 0.7 Units/mL. Current interpretive data was last revised on 2023. Blood 05/01/2023 5:19 AM ENGRAVING PLATE MAKER 05/01/2023 5:30 AM ENGRAVING PLATE MAKER Meron Aguilera MD LAB BLOOD ORDERABLES Final Result Performing Organization Address [facility] Co de Phone Number [facility] [place] [address] * Protime-INR (05/01/2023 5:19 AM ENGRAVING PLATE MAKER) PT 13.7 10.3 - 13.7 sec [facility] INR 1.20 0.90 - 1.20 [facility] Comment: Interpretive data Oral anticoagulant therapeutic ranges: Venous thromboembolism prophylaxis or treatment: 2.0-3.0 CARDIOLOGY Standard range: 2.0-3.0 High-intensity range: 2.5-3.5 Refer to indication-specific guidelines for appropriate target ranges for prosthetic heart valve replacement. Current interpretive data was last revised on 2019. Blood 05/01/2023 5:19 AM ENGRAVING PLATE MAKER 05/01/2023 5:30 AM ENGRAVING PLATE MAKER us Meron Aguilera MD LAB BLOOD ORDERABLES Final Result [facility] Department [place] [address] * (ABNORMAL) Comprehensive metabolic panel (05/01/2023 5:19 AM ENGRAVING PLATE MAKER) Sodium 140 135 - 145 mmol/L [facility] Potassium, pl 4.1 3.3 - 4.9 mmol/L [facility] Chloride 103 97 - 110 mmol/L [facility] CO2 26 22 - 32 mmol/L [facility] Anion gap 11 2 - 15 mmol/L [facility] BUN 20 6 - 25 mg/dL [facility] Creatinine 1.46(H) 0.80 - 1.30 mg/dL [facility] Glucose 137 70 - 199 mg/dL [facility] Comment: Interpretive Data Fasting glucose [...] 2022. Calcium 9.0 8.5 - 10.3 mg/dL [facility] Bilirubin, total 0.8 0.1 - 1.2 mg/dL [facility] Protein, pl 7.4 6.5 - 8.5 g/dL [facility] Albumin 4.6 3.5 - 5.0 g/dL [facility] Alk phos 90 40 - 130 Units/L [facility] ALT 20 7 - 55 Units/L [facility] AST 21 10 - 50 Units/L [facility] Blood 05/01/2023 5:19 AM ENGRAVING PLATE MAKER 05/01/2023 5:31 AM ENGRAVING PLATE MAKER us Meron Aguilera MD LAB BLOOD ORDERABLES Final Result [facility] Department [place] [address] * (ABNORMAL) CBC with auto differential (05/01/2023 5:19 AM ENGRAVING PLATE MAKER) WBC 20.6(H) 3.8 - 9.9 K/cumm [facility] Hgb 13.6 13.0 - 17.5 g/dL [facility] Comment: Interpretive Data A reference range for this assay has not been established for patients with an unknown legal sex. Please refer to the laboratory test catalog for established sex-specific reference intervals. Current interpretive data was last revised on 2023. Hct 39.4 38.9 - 50.3 % [facility] Comment: Interpretive Data A reference range for this assay has not been established for patients with an unknown legal sex. Please refer to the laboratory test catalog for established sex-specific reference intervals. Current interpretive data was last revised on 2023. Plt 165 150 - 400 K/cumm [facility] MPV 8.8(L) 9.1 - 12.3 fL [facility] RBC 4.45 4.30 - 5.80 M/cumm [facility] Comment: Interpretive Data A reference range for this assay has not been established for patients with an unknown legal sex. Please refer to the laboratory test catalog for established sex-specific reference intervals. Current interpretive data was last revised on 2023. MCV 88.5 81.3 - 96.4 fL [facility] MCH 30.6 27.1 - 33.3 pg [facility] MCHC 34.5 32.3 - 35.7 g/dL [facility] RDW CV 12.4 11.1 - 14.9 % [facility] RDW SD 40.4 35.7 - 48.1 fL [facility] NRBC abs 0.00 0.00 - 0.01 K/cumm [facility] Blood 05/01/2023 5:19 AM ENGRAVING PLATE MAKER 05/01/2023 5:31 AM ENGRAVING PLATE MAKER Meron Aguilera MD LAB BLOOD ORDERABLES Final Result [facility] Department [place] [address] * (ABNORMAL) ECG 12 lead (05/01/2023 5:15 AM ENGRAVING PLATE MAKER) Narrative [facility] - 05/01/2023 5:15 AM ENGRAVING PLATE MAKER Meron Monterroso MD ? 05/01/2023 ??5:16 AM [...] Aguilera MD ECG ORDERABLES Final Resu lt [facility] * XR Chest 1 View (05/01/2023 5:14 AM ENGRAVING PLATE MAKER) Anatomical Region Laterality Modality Body, Chest N/A Computed Radiogr aphy 05/01/2023 5:18 AM ENGRAVING PLATE MAKER Impressions 05/01/2023 8:36 AM ENGRAVING PLATE MAKER No prior imaging available for comparison. ??Single view chest: Cardiac contours likely exaggerated by imaging technique. ??No pleural effusion. ??No pneumothorax. ??Mild bibasilar atelectasis. Dictated by: Jr Gallagher MD The radiology attending physician has personally reviewed this study, and had reviewed and/or edited this written report and agrees with it. Electronically signed by: Ruthie Malone M.D. [facility] 05/01/2023 8:36 AM ENGRAVING PLATE MAKER EXAMINATION: 1 view chest radiograph Procedure Note [...] 05/01/23 at 1200 Given 05/02/2023 12:25 PM ENGRAVING PLATE MAKER 1,000 mg Given 05/02/2023 5:07 AM ENGRAVING PLATE MAKER 1,000 mg Given 05/01/2023 5:19 PM ENGRAVING PLATE MAKER 1,000 mg acetaminophen (TYLENOL) tablet 1,000 mg 1,000 mg, feeding tube, Every 6 hours scheduled, First dose on 05/03/23 at 1200 Given 05/05/2023 12:15 PM ENGRAVING PLATE MAKER 1,000 mg Given 05/05/2023 5:11 AM ENGRAVING PLATE MAKER 1,000 mg Given 05/04/2023 11:00 PM ENGRAVING PLATE MAKER 1,000 mg acetaminophen (TYLENOL) tablet 1,000 mg 1,000 mg, oral, Every 6 hours scheduled, First dose (after last modification) on Catarina 05/05/23 at 1800 Given 05/16/2023 12:08 PM ENGRAVING PLATE MAKER 1,000 mg Given 05/16/2023 6:19 AM ENGRAVING PLATE MAKER 1,000 mg Given 05/16/2023 12:16 AM ENGRAVING PLATE MAKER 1,000 mg acetaZOLAMIDE (DIAMOX) tablet 500 mg 500 mg, oral, Once, On 05/07/23 at 1045, For 1 dose Given 05/07/2023 10:30 AM ENGRAVING PLATE MAKER 500 mg acetaZOLAMIDE (DIAMOX) tablet 500 mg 500 mg, oral, Once, On 05/07/23 at 1800, For 1 dose Given 05/07/2023 6:18 PM ENGRAVING PLATE MAKER 500 mg albumin 5 % bottle - [...] hours including transplants) Given 05/08/2023 11:32 [address] ENGRAVING PLATE MAKER 25 g albuterol HFA (PROVENTIL HFA,VENTOLIN HFA,PROAIR HFA) 90 mcg/actuation inhaler - ADS Override Pull Starting on Tue05/02/23 at 2129, For 1 dose, Created by cabinet override albuterol HFA (PROVENTIL HFA,VENTOLIN HFA,PROAIR HFA) 90 mcg/actuation inhaler 2 puff 2 puff, inhalation, Every 4 hours PRN (cable respooler), wheezing, Starting on Catarina 05/05/23 at 1249 albuterol HFA (PROVENTIL HFA,VENTOLIN HFA,PROAIR HFA) 90 mcg/actuation inhaler 8 puff 8 puff, inhalation, Every 4 hours (cable respooler), First dose on Tue05/02/23 at 2245 Given 05/05/2023 11:08 AM ENGRAVING PLATE MAKER 2 puffs Given 05/05/2023 8:14 AM ENGRAVING PLATE MAKER 8 puffs Given 05/05/2023 4:00 AM ENGRAVING PLATE MAKER 8 puffs ALPRAZolam (XANAX) tablet 0.5 mg 0.5 mg, oral, Once, On Catarina 05/05/23 at 1430, For 1 dose Given 05/05/2023 2:06 PM ENGRAVING PLATE MAKER 0.5 mg ALPRAZolam (XANAX) tablet 0.5 mg 0.5 mg, oral, Once, On Catarina 05/05/23 at 1700, For 1 dose Given 05/05/2023 4:31 PM ENGRAVING PLATE MAKER 0.5 mg aspirin chewable tablet 81 mg 81 mg, feeding tube, Daily, First dose on Tue05/03/23 at 1000 Given 05/05/2023 8:48 AM ENGRAVING PLATE MAKER 81 mg Given 05/04/2023 8:07 AM ENGRAVING PLATE MAKER 81 mg Given 05/03/2023 9:48 AM ENGRAVING PLATE MAKER 81 mg aspirin chewable tablet 81 mg 81 mg, oral, Daily, First dose (after last modification) on Tue05/06/23 at 0900 Given 05/16/2023 9:31 AM ENGRAVING PLATE MAKER 81 mg Given 05/15/2023 8:52 AM ENGRAVING PLATE MAKER 81 mg Given 05/14/2023 8:23 AM ENGRAVING PLATE MAKER 81 mg bumetanide (BUMEX) 0.25 mg/mL injection 2 mg 2 mg, intravenous, Administer over 1 Minutes, Every 6 hours scheduled, First dose on Tue05/03/23 at 1900 Given 05/04/2023 5:22 AM ENGRAVING PLATE MAKER 2 mg Given 05/03/2023 11:34 PM ENGRAVING PLATE MAKER 2 mg Given 05/03/2023 7:49 PM ENGRAVING PLATE MAKER 2 mg bumetanide (BUMEX) 0.25 mg/mL injection 2 mg 2 mg, intravenous, Administer over 1 Minutes, Every 6 hours, First dose on Tue05/04/23 at 1200 Given 05/05/2023 5:11 AM ENGRAVING PLATE MAKER 2 mg Given 05/04/2023 11:00 PM ENGRAVING PLATE MAKER 2 mg Given 05/04/2023 5:43 PM ENGRAVING PLATE MAKER 2 mg bumetanide (BUMEX) 0.25 mg/mL injection 2 mg 2 mg, intravenous, Administer over 1 Minutes, Every 6 hours scheduled, First dose on Tue05/05/23 at 1345 Given 05/06/2023 5:42 AM ENGRAVING PLATE MAKER 2 mg Given 05/06/2023 1:07 AM ENGRAVING PLATE MAKER 2 mg Given 05/05/2023 5:10 PM ENGRAVING PLATE MAKER 2 mg bumetanide (BUMEX) 0.25 mg/mL injection 2 mg 2 mg, intravenous, Administer over 1 Minutes, Every 6 hours scheduled, First dose on Tue05/06/23 at 0700 Given 05/06/2023 12:10 PM ENGRAVING PLATE MAKER 2 mg calcium chloride IV syringe 1 g 1 g, intravenous, Once, On e 05/03/23 at 0015, For 1 dose, Central line preferred, Indications: hypocalcemiaIndications:hypocalcemia Given 05/03/2023 12:15 AM ENGRAVING PLATE MAKER 1 g calcium chloride IV syringe 1 g 1 g, intravenous, Once, On 05/07/23 at 1300, For 1 dose, Central line preferred, Indications: hypocalcemiaIndications:hypocalcemia Given 05/07/2023 2:13 PM ENGRAVING PLATE MAKER 1 g calcium gluconate 1 g/50 mL in sodium chloride (premix) solution 1 g 1 g, intravenous, Administer over 60 Minutes, Once, On 05/04/23 at 0745, For 1 dose, Room temperature only, Indications: hypocalcemiaIndications:hypocalcemia New Bag 05/04/2023 7:51 AM ENGRAVING PLATE MAKER 1 g calcium gluconate 2 g/100 mL in sodium chloride (premix) solution 2 g 2 g, intravenous, Administer over 60 Minutes, Once, On Catarina 05/05/23 at 2000, For 1 dose, Room temperature only, Indications: hypocalcemiaIndications:hypocalcemia New Bag 05/05/2023 7:33 PM ENGRAVING PLATE MAKER 2 g camphor-menthoL (SARNA) 0.5-0.5 % lotion topical, Every 6 hours PRN, itching, Starting on 05/08/23 at 0435, Apply to affected area: other Given 05/08/2023 5:35 AM ENGRAVING PLATE MAKER Carrier Fluids for Secondary Infusion - 0.9% Sodium Chloride 30 mL, intravenous, As needed, For priming tubing and/or flushing, Starting on 05/01/23 at 1038, 0-250 ml/hr to flush line after IV infusions when no maintenance IV ordered. Infuse 30mL at the same rate as the secondary infusion. Run as primary IV, not intended for KVO. Given 05/06/2023 8:27 AM ENGRAVING PLATE MAKER 30 mL Given 05/02/2023 11:45 PM ENGRAVING PLATE MAKER 30 mL Carrier Fluids for Secondary Infusion - 0.9% Sodium Chloride 30 mL, intravenous, As needed, For priming tubing and/or flushing, Starting on 05/02/23 at 2126, 0-250ml/hr to flush line after IV infusions when no maintenance IV ordered. Infuse 30mL at the same rate as the secondary infusion. Run as primary IV, not intended for KVO Given 05/03/2023 8:55 AM ENGRAVING PLATE MAKER 30 mL carvediloL (COREG) tablet 12.5 mg 12.5 mg, oral, 2 times daily with meals (bkfst, dinner), First dose (after last modification) on Tue05/01/23 at 1800 Given 05/02/2023 7:26 AM ENGRAVING PLATE [employer] 12.5 mg Given 05/01/2023 5:18 PM ENGRAVING PLATE [employer]ER 12.5 mg carvediloL (COREG) tablet 12.5 mg 12.5 mg, oral, Once, On Tue05/01/23 at 2230, For 1 dose Given 05/01/2023 10:01 PM ENGRAVING PLATE [employer] 12.5 mg carvediloL (COREG) tablet 12.5 mg 12.5 mg, oral, Once, On Tue05/02/23 at 0915, For 1 dose Given 05/02/2023 8:38 AM ENGRAVING PLATE [employer] 12.5 mg carvediloL (COREG) tablet 12.5 mg 12.5 mg, oral, 2 times daily, First dose on Tue05/11/23 at 0930 Given 2023 9:03 AM ENGRAVING PLATE [employer] 12.5 mg carvediloL (COREG) tablet 12.5 mg 12.5 mg, oral, 2 times daily, First dose (after last modification) on Tue05/13/23 at 0900 Given 05/16/2023 9:31 AM ENGRAVING PLATE [employer] 12.5 mg Given 05/15/2023 9:17 PM ENGRAVING PLATE [employer] 12.5 mg Given 05/15/2023 8:53 AM ENGRAVING PLATE [employer] 12.5 mg carvediloL (COREG) tablet 25 mg 25 mg, oral, 2 times daily with meals (bkfst, dinner), First dose (after last modification) on Tue05/02/23 at 1800 Given 05/03/2023 7:39 AM ENGRAVING PLATE [employer] 25 mg carvediloL (COREG) tablet 25 mg 25 mg, feeding tube, Once, On Tue05/03/23 at 1000, For 1 dose Given 05/03/2023 9:48 AM ENGRAVING PLATE [employer] 25 mg carvediloL (COREG) tablet 25 mg 25 mg, oral, 2 times daily, First dose (after last modification) on Tue05/11/23 at 2100 Given 05/12/2023 8:15 PM ENGRAVING PLATE [employer] 2 5 mg Given 05/12/2023 7:26 AM ENGRAVING PLATE [employer] 25 mg Given 2023 8:48 PM ENGRAVING PLATE [employer] 25 mg carvediloL (COREG) tablet 50 mg 50 mg, feeding tube, 2 times daily, First dose (after last modification) on Tue05/03/23 at 2100 Given 05/05/2023 8:51 AM ENGRAVING PLATE [employer] 50 mg Given 05/04/2023 8:04 PM ENGRAVING PLATE [employer] 50 mg Given 05/04/2023 8:07 AM ENGRAVING PLATE [employer] 50 mg carvediloL (COREG) tablet 6.25 mg 6.25 mg, oral, 2 times daily with meals (bkfst, dinner), First dose on Tue05/01/23 at 1230 Given 05/01/2023 12:26 PM ENGRAVING PLATE [employer] 6.25 mg ceFAZolin (ANCEF) 2,000 mg/20 mL in sterile water (premix) 2,000 mg 2,000 mg, intravenous, at 400 mL/hr, Administer over 3 Minutes, Every 8 hours, First dose on Tue05/03/23 at 0100, For 3 doses, Start 8 hours after last jie-operative dose., Indications: Prophylaxis, SurgicalIndications:Prophylaxis, Surgical Given 05/03/2023 5:36 PM ENGRAVING PLATE [employer] 2,000 mg 400 mL/hr Given 05/03/2023 8:49 AM ENGRAVING PLATE [employer]ER 2,000 mg 400 mL/hr Given 05/03/2023 1:10 AM ENGRAVING PLATE [employer]ER 2,000 mg 400 mL/hr chlorhexidine (PERIDEX) 0.12 % solution 15 mL 15 mL, swish & spit, 2 times daily, First dose on Tue05/03/23 at 1000, Can dc once extubated Given 05/05/2023 9:0 2 PM ENGRAVING PLATE [employer]ER 15 mL Given 05/05/2023 8:49 AM ENGRAVING PLATE [employer]KER 15 mL Given 05/04/2023 8:04 PM ENGRAVING PLATE [employer]ER 15 mL clevidipine (CLEVIPREX) 50 mg/100 mL [...] hours., Routine Rate/Dose Verify 05/03/2023 5:00 PM ENGRAVING PLATE [employer] 24 mg/hr 48 mL/hr New Bag 05/03/2023 4:58 PM ENGRAVING PLATE [employer]ER 24 mg/hr 48 mL/hr Rate/Dose Verify 05/03/2023 4:00 PM ENGRAVING PLATE [employer]ER 24 mg/hr 48 mL/h r clevidipine (CLEVIPREX) [...] hours., Routine Rate/Dose Verify 05/05/2023 7:00 PM ENGRAVING PLATE [employer] 32 mg/hr 64 mL/hr New Bag 05/05/2023 6:35 PM ENGRAVING PLATE [employer] 32 mg/hr 64 mL/hr Rate/Dose Verify 05/05/2023 6:00 PM ENGRAVING PLATE [employer] 32 mg/hr 64 mL/h r clevidipine (CLEVIPREX) [...] hours., Routine Rate/Dose Verify 05/07/2023 2:00 AM ENGRAVING PLATE [employer]ER 3 mg/hr 6 mL/hr Rate/Dose Verify 05/07/2023 1:00 AM ENGRAVING PLATE [employer]KER 3 mg/hr 6 mL/hr Rate/Dose Change 05/07/2023 12:25 AM ENGRAVING PLATE [employer]KER 3 mg/hr 6 mL/h r clevidipine (CLEVIPREX) [...] hours., Routine Rate/Dose Change 05/09/2023 4:54 AM ENGRAVING PLATE [employer]ER 5 mg/hr 10 mL/hr Rate/Dose Change 05/09/2023 4:48 AM ENGRAVING PLATE [employer]ER 10 mg/hr 20 mL/h r Rate/Dose Change 05/09/2023 4:45 AM ENGRAVING PLATE [employer]ER 12 mg/hr 24 mL/h r cyclobenzaprine (FLEXERIL) tablet 10 mg 10 mg, oral, 3 times daily PRN, muscle spasms, Starting on Tue05/02/23 at 0337 Given 05/02/2023 12:25 PM ENGRAVING PLATE [employer]ER 10 mg Given 05/02/2023 3:42 AM ENGRAVING PLATE [employer]ER 10 mg dexmedeTOMIDine in 0.9% sodium chloride [...] -2, Routine Rate/Dose Change 05/08/2023 6:00 PM ENGRAVING PLATE [employer]KER 0.2 mcg/kg/hr 5.38 mL/hr Rate/Dose Change 05/08/2023 5:30 PM ENGRAVING PLATE [employer]KER 0.5 mcg/kg/hr 13.4 4 mL/hr New Bag 05/08/2023 5:26 PM ENGRAVING PLATE [employer]KER 0.8 mcg/kg/hr 21.5 mL/hr dilTIAZem (CARDIZEM) injection 10 mg 10 mg, intravenous, Administer over 2 Minutes, Once, On Tue05/04/23 at 1800, For 1 dose, Refrigerate Given 05/04/2023 5:43 PM ENGRAVING PLATE [employer] 10 mg dilTIAZem (CARDIZEM) injection 10 mg 10 mg, intravenous, Administer over 2 Minutes, 3 times daily PRN, for sBP >130 or MAP >85, Starting on Tue05/04/23 at 2009, Refrigerate Given 05/04/2023 9:10 PM ENGRAVING PLATE [employer]ER 10 mg dilTIAZem (CARDIZEM) injection 15 mg 15 mg, intravenous, Administer over 2 Minutes, Every 8 hours, First dose on [facility] 05/05/23 at 1345, Refrigerate Given 05/05/2023 1:15 PM ENGRAVING PLATE [employer]ER 15 mg dilTIAZem (CARDIZEM) injection 15 mg 15 mg, intravenous, Administer over 2 Minutes, Once, On [facility] 05/05/23 at 1415, For 1 dose, Refrigerate Given 05/05/2023 1:35 PM ENGRAVING PLATE [employer]ER 15 mg dilTIAZem (CARDIZEM) injection 15 mg 15 mg, intravenous, Administer over 2 Minutes, Once, On [facility] 05/05/23 at 1745, For 1 dose, Refrigerate Given 05/05/2023 5:00 PM ENGRAVING PLATE [employer] 15 mg dilTIAZem (CARDIZEM) injection 5 mg 5 mg, intravenous, Administer over 2 Minutes, Once, On Tue05/02/23 at 0200, For 1 dose, Refrigerate Given 05/02/2023 1:33 AM ENGRAVING PLATE [employer]ER 5 mg dilTIAZem (CARDIZEM) injection 5 mg 5 mg, intravenous, Administer over 2 Minutes, Every 15 min PRN, For SBP >115, Starting on Tue05/02/23 at 0156, Refrigerate Given 05/03/2023 5:01 AM ENGRAVING PLATE [employer] 5 mg Given 05/03/2023 4:15 AM ENGRAVING PLATE [employer]ER 5 mg Given 05/02/2023 8:11 AM ENGRAVING PLATE [employer]KER 5 mg docusate (COLACE) 10 mg/mL oral liquid 100 mg 100 mg, feeding tube, 2 times daily, First dose on 05/02/23 at 2215, Hold for diarrhea., Indications: constipationIndications:constipation Given 05/05/2023 8:49 AM ENGRAVING PLATE [employer]ER 100 mg Given 05/04/2023 8:04 PM ENGRAVING PLATE [employer]KER 100 mg Given 05/04/2023 8:07 AM ENGRAVING PLATE [employer]KER 100 mg docusate (COLACE) 10 mg/mL oral liquid 100 mg 100 mg, oral, 2 times daily, First dose (after last modification) on [place] 05/05/23 at 2100, Hold for diarrhea., Indications: constipationIndications:constipation Given 05/06/2023 8:21 AM ENGRAVING PLATE [employer]KER 100 mg Given 05/05/2023 9:02 PM ENGRAVING PLATE [employer]ER 100 mg droPERidol (INAPSINE) injection 0.625 mg 0.625 mg, intravenous, Administer over 5 Minutes, Once, On Tue05/01/23 at 0723, For 1 dose Given 05/01/2023 7:24 AM ENGRAVING PLATE [employer] 0.625 mg droPERidol (INAPSINE) injection 0.625 mg 0.625 mg, intravenous, Administer over 5 Minutes, Once, On Tue05/01/23 at 0729, For 1 dose Given 05/01/2023 7:33 AM ENGRAVING PLATE [employer] 0.625 mg droPERidol (INAPSINE) injection 0.625 mg 0.625 mg, intravenous, Administer over 5 Minutes, Every 4 hours PRN, nausea, Starting on Tue05/01/23 at 0820, For 2 doses Given 05/01/2023 9:35 AM ENGRAVING PLATE [employer] 0.625 mg droPERidol (INAPSINE) injection 5 mg 5 mg, intravenous, Administer over 5 Minutes, Once, On Tue05/06/23 at 0330, For 1 dose Given 05/06/2023 3:43 AM ENGRAVING PLATE [employer]KER 5 mg esmolol in 0.9% sodium chloride [...] only, Routine New Bag 05/04/2023 9:05 AM ENGRAVING PLATE [employer]KER 300 mcg/kg/min 96.8 mL/hr New Bag 05/04/2023 8:07 AM ENGRAVING PLATE [employer]KER 300 mcg/kg/min 96.8 mL/h r Rate/Dose Verify 05/04/2023 8:00 AM ENGRAVING PLATE [employer]KER 300 mcg/kg/min 96. 8 mL/hr esmolol in [...] only, Routine Rate/Dose Change 05/04/2023 12:27 PM ENGRAVING PLATE MAKER 0 mcg/kg/min 0 mL/hr Rate/Dose Verify 05/04/2023 12:00 PM ENGRAVING PLATE [employer]KER 25 mcg/kg/min 8.0 6 mL/hr Rate/Dose Change 05/04/2023 11:47 AM ENGRAVING PLATE [employer]KER 25 mcg/kg/min 8.0 6 mL/hr esmolol in [...] bpm, Routine New Bag 05/01/2023 6:35 AM ENGRAVING PLATE [employer]KER 300 mcg/kg/min 162 mL/hr Rate/Dose Change 05/01/2023 5:25 AM ENGRAVING PLATE [employer]KER 300 mcg/kg/min 162 mL/hr Rate/Dose Change 05/01/2023 5:16 AM ENGRAVING PLATE [employer]KER 250 mcg/kg/min 135 mL/hr esmolol in 0.9% [...] 60-70, Routine New Bag 05/02/2023 1:03 AM ENGRAVING PLATE [employer]KER 300 mcg/kg/min 187.7 mL/hr Rate/Dose Verify 05/02/2023 1:00 AM ENGRAVING PLATE [employer]KER 300 mcg/kg/min 187 .7 mL/hr Rate/Dose Verify 05/02/2023 12:00 AM ENGRAVING PLATE [employer]KER 300 mcg/kg/min 18 7.7 mL/hr esmolol in [...] 60-70, Routine New Bag 05/02/2023 3:49 AM ENGRAVING PLATE [employer]KER 300 mcg/kg/min 193.5 mL/hr Rate/Dose Verify 05/02/2023 3:00 AM ENGRAVING PLATE [employer]KER 300 mcg/kg/min 193 .5 mL/hr New Bag 05/02/2023 2:41 AM ENGRAVING PLATE [employer]KER 300 mcg/kg/min 193.5 mL/ hr esmolol in [...] 60-70, Routine Rate/Dose Verify 05/03/2023 10:00 PM ENGRAVING PLATE [employer]KER 300 mcg/kg/min 187.7 mL/hr Rate/Dose Verify 05/03/2023 9:00 PM ENGRAVING PLATE [employer]KER 300 mcg/kg/min 187 .7 mL/hr Rate/Dose Verify 05/03/2023 8:00 PM ENGRAVING PLATE [employer]KER 300 mcg/kg/min 187 .7 mL/hr famotidine (PEPCID) 20 mg/50 mL in sodium chloride 0.9% (premix) 20 mg 20 mg, intravenous, at 150 mL/hr, Administer over 20 Minutes, Every 12 hours scheduled, First dose on Tue05/02/23 at 2215, Indications: Prevention of Stress UlcerIndications:Prevention of Stress Ulcer New Bag 05/05/2023 10:05 AM ENGRAVING PLATE [employer]KER 20 mg 150 mL/hr New Bag 05/04/2023 8:24 PM ENGRAVING PLATE MAKER 20 mg 150 mL/hr New Bag 05/04/2023 8:07 AM ENGRAVING PLATE MAKER 20 mg 150 mL/hr fentaNYL (SUBLIMAZE) 50 mcg/mL preservative free injection - ADS Override Pull Starting on Tue05/01/23 at 2302, For 1 dose, Created by cabinet override fentaNYL (SUBLIMAZE) bolus from bag 100 mcg 100 mcg, intravenous, Once, On Tue05/06/23 at 2215, For 1 dose Bolus from Bag 05/06/2023 9:29 PM ENGRAVING PLATE MAKER 100 mcg fentaNYL (SUBLIMAZE) bolus from bag 50 mcg 50 mcg, intravenous, Every 15 min PRN, painful stimuli include turning, bathing, nasotracheal suctioning, physical therapy, dressing changes, and intravenous catheter and invasive line placement., Starting on Tue05/03/23 at 0800, Discontinue when patient extubated. ??, Indications: PainIndications:Pain Bolus from Bag 05/05/2023 8:39 AM ENGRAVING PLATE MAKER 50 mcg Bolus from Bag 05/05/2023 5:16 AM ENGRAVING PLATE MAKER 50 mcg Bolus from Bag 05/04/2023 7:30 PM ENGRAVING PLATE MAKER 50 mcg fentaNYL (SUBLIMAZE) preservative free injection 100 mcg 100 mcg, intravenous, Once, On Tue05/06/23 at 2215, For 1 dose Given 05/06/2023 9:50 PM ENGRAVING PLATE [employer]KER 100 mcg fentaNYL (SUBLIMAZE) preservative free injection 50 mcg 50 mcg, intravenous, Once, On Tue05/02/23 at 0000, For 1 dose Given 05/01/2023 11:05 PM ENGRAVING PLATE [employer]KER 50 mcg fentaNYL (SUBLIMAZE) preservative free injection 50 mcg 50 mcg, intravenous, Once, On Tue05/02/23 at 0430, For 1 dose Given 05/02/2023 1:45 AM ENGRAVING PLATE MAKER 50 mcg fentaNYL 2500 mcg/50 mL cassette/syringe [...] Intubated Patients Rate/Dose Verify 05/05/2023 7:00 AM ENGRAVING PLATE MAKER 150 mcg/hr 3 mL/hr Rate/Dose Verify 05/05/2023 6:00 AM ENGRAVING PLATE [employer]KER 150 mcg/hr 3 mL/hr Rate/Dose Verify 05/05/2023 5:00 AM ENGRAVING PLATE MAKER 150 mcg/hr 3 mL/hr fentaNYL 2500 mcg/50 [...] Intubated Patients Rate/Dose Verify 05/07/2023 2:00 AM ENGRAVING PLATE [employer]KER 50 mcg/hr 1 mL/hr Rate/Dose Change 05/07/2023 1:18 AM ENGRAVING PLATE MAKER 50 mcg/hr 1 mL/hr Rate/Dose Verify 05/07/2023 1:00 AM ENGRAVING PLATE MAKER 50 mcg/hr 1 mL/hr furosemide (LASIX) 10 mg/mL injection 40 mg 40 mg, intravenous, Once, On Tue05/03/23 at 0600, For 1 dose, For IV push: administer doses < 160 mg at a rate of 20 -40 mg/min. Doses >/= 160 mg should be administered no faster than 4 mg/min. Room temperature only Given 05/03/2023 6:1 5 AM ENGRAVING PLATE [employer]KER 40 mg furosemide (LASIX) 10 mg/mL injection 40 mg 40 mg, intravenous, Once, On Tue05/03/23 at 1215, For 1 dose, For IV push: administer doses < 160 mg at a rate of 20 -40 mg/min. Doses >/= 160 mg should be administered no faster than 4 mg/min. Room temperature only Given 05/03/2023 11: 50 AM ENGRAVING PLATE [employer]KER 40 mg furosemide (LASIX) 10 mg/mL injection 40 mg 40 mg, intravenous, 2 times daily (for diuretics), First dose on Tue05/08/23 at 1030, For 2 doses, Room temperature only Given 05/08/2023 10:03 AM ENGRAVING PLATE [employer] 40 mg furosemide (LASIX) 10 mg/mL injection 40 mg 40 mg, intravenous, 2 times daily (for diuretics), First dose (after last reorder) on Tue05/09/23 at 0945, For 2 doses, Room temperature only Given 05/09/2023 3:19 PM ENGRAVING PLATE [employer]KER 40 mg Given 05/09/2023 9:54 AM ENGRAVING PLATE [employer]KER 40 mg furosemide (LASIX) 10 mg/mL injection 40 mg 40 mg, intravenous, 2 times daily (for diuretics), First dose (after last reorder) on Tue05/10/23 at 0915, For 2 doses, Room temperature only Given 05/10/2023 3:15 PM ENGRAVING PLATE [employer]KER 40 mg Given 05/10/2023 9:18 AM ENGRAVING PLATE [employer]KER 40 mg gabapentin (NEURONTIN) capsule 300 mg 300 mg, oral, 3 times daily, First dose on Tue05/08/23 at 1015 Given 05/16/2023 4:14 PM ENGRAVING PLATE [employer]KER 300 mg Given 05/16/2023 9:31 AM ENGRAVING PLATE [employer]KER 300 mg Given 05/15/2023 9:17 PM ENGRAVING PLATE [employer]KER 300 mg haloperidol (HALDOL) injection 10 mg 10 mg, intravenous, Every 6 hours PRN, agitation, delirium, Starting on Tue05/08/23 at 2017, If administered IV push, administer over 5 min for adults Given 05/08/2023 10:05 PM ENGRAVING PLATE [employer]ER 10 mg heparin 5,000 unit/mL injection 5,000 Units 5,000 Units, subcutaneous, Every 8 hours scheduled, First dose on Tue05/03/23 at 1400, Indications: Deep Vein Thrombosis PreventionIndications:Deep Vein Thrombosis Prevention Given 05/16/2023 1:38 PM ENGRAVING PLATE [employer]KER 5,000 Units Left Lower Abdomen Given 05/16/2023 6:19 AM ENGRAVING PLATE MAKER 5,000 Units L eft Upper Arm Given 05/15/2023 9:17 PM ENGRAVING PLATE MAKER 5,000 Units L eft Upper Arm HYDROmorphone (DILAUDID) 0.5 mg/0.5 mL injection - ADS Override Pull Starting on [place] 05/05/23 at 1057, For 1 dose, Created by cabinet override HYDROmorphone (DILAUDID) injection 0.2 mg 0.2 mg, intravenous, Administer over 2 Minutes, Every 2 hours PRN, breakthrough pain, Starting on Tue05/11/23 at 0849 Given 05/12/2023 4:56 AM ENGRAVING PLATE [employer]KER 0.2 m g HYDROmorphone (DILAUDID) injection 0.4 mg 0.4 mg, intravenous, Administer over 2 Minutes, Every 2 hours PRN, breakthrough pain, Starting on Tue05/02/23 at 0152 Given 05/03/2023 8:29 PM ENGRAVING PLATE MAKER 0.4 mg Given 05/03/2023 5:15 AM ENGRAVING PLATE [employer]KER 0.4 mg Given 05/03/2023 3:35 AM ENGRAVING PLATE [employer]KER 0.4 mg HYDROmorphone (DILAUDID) injection 0.5 mg 0.5 mg, intravenous, Administer over 2 Minutes, Once, On Tue05/01/23 at 0747, For 1 dose Given 05/01/2023 7:49 AM ENGRAVING PLATE [employer]KER 0.5 mg HYDROmorphone (DILAUDID) injection 0.5 mg 0.5 mg, intravenous, Administer over 2 Minutes, Every 2 hours PRN, 1st line for pain, Starting on 05/01/23 at 0820, For 3 doses Given 05/01/2023 9:34 AM ENGRAVING PLATE [employer]KER 0.5 mg HYDROmorphone (DILAUDID) injection 0.5 mg 0.5 mg, intravenous, Administer over 2 Minutes, Every 2 hours PRN, breakthrough pain, Starting on Tue05/01/23 at 1048, For 2 doses Given 05/01/2023 11:29 PM ENGRAVING PLATE [employer]KER 0.5 mg Given 05/01/2023 6:35 PM ENGRAVING PLATE [employer]KER 0.5 mg HYDROmorphone (DILAUDID) injection 0.5 mg 0.5 mg, intravenous, Administer over 2 Minutes, Once, On 05/02/23 at 0145, For 1 dose Given 05/02/2023 1:12 AM ENGRAVING PLATE [employer]KER 0.5 mg HYDROmorphone (DILAUDID) injection 0.5 mg 0.5 mg, intravenous, Administer over 2 Minutes, Once, On [place] 05/05/23 at 1230, For 1 dose Given 05/05/2023 11:55 AM ENGRAVING PLATE [employer]KER 0.5 mg HYDROmorphone (DILAUDID) injection 0.5 mg 0.5 mg, intravenous, Administer over 2 Minutes, Every 2 hours PRN, breakthrough pain, Starting on [place] 05/05/23 at 1628 Given 05/08/2023 10:03 AM ENGRAVING PLATE [employer]KER 0.5 m g Given 05/08/2023 8:04 AM ENGRAVING PLATE [employer]KER 0.5 mg Given 05/08/2023 6:01 AM ENGRAVING PLATE [employer]KER 0.5 mg HYDROmorphone (DILAUDID) injection 0.5 mg 0.5 mg, intravenous, Administer over 2 Minutes, Once, On [place] 05/05/23 at 1845, For 1 dose Given 05/05/2023 6:05 PM ENGRAVING PLATE [employer]KER 0.5 mg HYDROmorphone (DILAUDID) injection 0.5 mg 0.5 mg, intravenous, Administer over 2 Minutes, Once, On [place] 05/05/23 at 2345, For 1 dose Given 05/05/2023 10:33 PM ENGRAVING PLATE [employer]KER 0.5 mg HYDROmorphone (DILAUDID) injection 0.5 mg 0.5 mg, intravenous, Administer over 2 Minutes, Once, On 05/07/23 at 1445, For 1 dose Given 05/07/2023 2:14 PM ENGRAVING PLATE [employer]KER 0.5 mg HYDROmorphone (DILAUDID) injection 0.5 mg 0.5 mg, intravenous, Administer over 2 Minutes, Once, On 05/07/23 at 2045, For 1 dose Given 05/07/2023 8:24 PM ENGRAVING PLATE [employer]KER 0.5 mg HYDROmorphone (DILAUDID) injection 0.5 mg 0.5 mg, intravenous, Administer over 2 Minutes, Every 2 hours PRN, breakthrough pain, Starting on 05/08/23 at 1300 Given 2023 7:31 AM ENGRAVING PLATE [employer]KER 0.5 m g Given 05/10/2023 10:27 AM ENGRAVING PLATE [employer]KER 0.5 mg Given 05/09/2023 7:57 PM ENGRAVING PLATE [employer]KER 0.5 mg HYDROmorphone (DILAUDID) injection 0.5 mg 0.5 mg, intravenous, Administer over 2 Minutes, Once, On [place] 05/12/23 at 2000, For 1 dose Given 05/12/2023 7:26 PM ENGRAVING PLATE [employer]KER 0.5 mg HYDROmorphone (DILAUDID) injection 1 mg 1 mg, intravenous, Administer over 2 Minutes, Once, On [place] 05/01/23 at 0603, For 1 dose Given 05/01/2023 6:06 AM ENGRAVING PLATE [employer]KER 1 m g hydrOXYzine (ATARAX) tablet 10 mg 10 mg, oral, Once, On [place] 05/08/23 at 0400, For 1 dose Given 05/08/2023 3:28 AM ENGRAVING PLATE [employer]KER 10 mg hydrOXYzine (ATARAX) tablet 25 mg 25 mg, oral, 4 times daily PRN, anxiety, Starting on [place] 05/12/23 at 1931 Given 05/15/2023 9:17 PM ENGRAVING PLATE [employer]KER 25 mg Given 05/13/2023 9:26 PM ENGRAVING PLATE [employer]KER 25 mg Given 05/13/2023 5:18 AM ENGRAVING PLATE [employer]KER 25 mg hydrOXYzine (ATARAX) tablet 50 mg 50 mg, oral, Once, On 05/02/23 at 1600, For 1 dose Given 05/02/2023 3:39 PM ENGRAVING PLATE [employer]KER 50 mg ioversoL (OPTIRAY 350) syringe 125 mL 125 mL, intravenous, Once in imaging, contrast, Starting on 05/02/23 at 0925, For 1 dose Contrast Given 05/02/2023 9:25 AM ENGRAVING PLATE MAKER 120 mL ioversoL (OPTIRAY 350) syringe 125 mL 125 mL, intravenous, Once in imaging, contrast, Starting on [place] 05/05/23 at 1827, For 1 dose Contrast Given 05/05/2023 6:32 PM ENGRAVING PLATE MAKER 100 mL ioversoL (OPTIRAY 350) syringe 125 mL 125 mL, intravenous, Once in imaging, contrast, Starting on 05/16/23 at 1023, For 1 dose Contrast Given 05/16/2023 10:29 AM ENGRAVING PLATE MAKER 125 mL ioversoL (OPTIRAY 350) syringe 75 mL 75 mL, intravenous, Once in imaging, contrast, Starting on Tue05/11/23 at 1107, For 1 dose Contrast Given 2023 11:17 AM ENGRAVING PLATE MAKER 71 mL ioversoL (OPTIRAY 350) syringe 75 mL 75 mL, intravenous, Once in imaging, contrast, Starting on Tue05/11/23 at 1116, For 1 dose Contrast Given 2023 11:17 AM ENGRAVING PLATE [employer]KER 30 mL ketamine (KETALAR) bolus from bag 10 mg 10 mg, intravenous, Once, On Tue05/06/23 at 0200, For 1 dose Bolus from Bag 05/06/2023 12:15 AM ENGRAVING PLATE [employer]KER 10 mg ketamine (KETALAR) bolus from bag 10 mg 10 mg, intravenous, Once, On Tue05/06/23 at 0400, For 1 dose Bolus from Bag 05/06/2023 4:39 AM ENGRAVING PLATE [employer]KER 10 mg ketamine (KETALAR) injection 10 mg 10 mg, intravenous, Administer over 2 Minutes, Every 3 hours PRN, other, 2nd line for pain, Starting on Tue05/08/23 at 0933 Given 05/08/2023 11:37 AM ENGRAVING PLATE [employer]KER 10 mg ketamine (KETALAR) injection 10 mg 10 mg, intravenous, Administer over 2 Minutes, Every 3 hours PRN, other, 2nd line for pain, Starting on Tue05/08/23 at 1400 Given 05/08/2023 2:52 PM ENGRAVING PLATE [employer]KER 10 mg ketamine (KETALAR) injection 100 mg 100 mg, intravenous, Administer over 2 Minutes, Once, On Tue05/06/23 at 2115, For 1 dose Given 05/06/2023 9:25 PM ENGRAVING PLATE [employer]KER 100 mg ketamine in 0.9% sodium chloride (KETALAR) 1,000 mg/100 mL (10 mg/mL) infusion (premix) 50 mg/hr (5 mL/hr), 10 mg/mL, intravenous, Continuous, Starting on Tue05/04/23 at 0415, Until [place] 05/05/23 at 2336, Indications: Sedation, RoutineIndications:Sedation Rate/Dose Verify 05/05/2023 7:00 AM ENGRAVING PLATE [employer]KER 50 mg/hr 5 mL/hr Rate/Dose Verify 05/05/2023 6:00 AM ENGRAVING PLATE MAKER 50 mg/hr 5 mL/hr Rate/Dose Verify 05/05/2023 5:00 AM ENGRAVING PLATE [employer]KER 50 mg/hr 5 mL/hr ketamine in 0.9% sodium chloride (KETALAR) 1,000 mg/100 mL (10 mg/mL) infusion (premix) 10 mg/hr (1 mL/hr), 10 mg/mL, intravenous, Continuous, Starting on Tue05/06/23 at 0015, Until Tue05/06/23 at 0501, Indications: Acute Pain, Initial Rate: Do Not Titrate, RoutineIndications:Acute Pain Rate/Dose Verify 05/06/2023 5:00 AM ENGRAVING PLATE MAKER 10 mg/hr 1 mL/hr Rate/Dose Verify 05/06/2023 4:00 AM ENGRAVING PLATE MAKER 10 mg/hr 1 mL/hr Rate/Dose Verify 05/06/2023 3:00 AM ENGRAVING PLATE MAKER 10 mg/hr 1 mL/hr ketamine in 0.9% sodium chloride (KETALAR) 1,000 mg/100 mL (10 mg/mL) infusion (premix) 20 mg/hr (2 mL/hr), 10 mg/mL, intravenous, Continuous, Starting on Tue05/08/23 at 0045, Until Tue05/08/23 at 0934, Indications: Acute Pain, Initial Rate: Do Not Titrate, RoutineIndications:Acute Pain Rate/Dose Verify 05/08/2023 9:00 AM ENGRAVING PLATE MAKER 20 mg/hr 2 mL/hr Rate/Dose Verify 05/08/2023 8:00 AM ENGRAVING PLATE MAKER 20 mg/hr 2 mL/hr Rate/Dose Verify 05/08/2023 7:00 AM ENGRAVING PLATE MAKER 20 mg/hr 2 mL/hr labetaloL (NORMODYNE,TRANDATE) 5 [...] HR < 70 Given 05/10/2023 4:54 AM ENGRAVING PLATE MAKER 10 mg 60 mL/hr Given 05/09/2023 9:39 PM ENGRAVING PLATE MAKER 10 mg 60 mL/hr Given 05/09/2023 3:15 PM ENGRAVING PLATE MAKER 10 mg 60 mL/hr labetaloL (NORMODYNE,TRANDATE) injection 10 mg 10 mg, intravenous, at 60 mL/hr, Administer over 2 Minutes, Once, On Tue05/09/23 at 1915, For 1 dose Given 05/09/2023 6:41 PM ENGRAVING PLATE MAKER 10 mg 60 mL/hr labetaloL (NORMODYNE,TRANDATE) injection 20 mg 20 mg, intravenous, at 120 mL/hr, Administer over 2 Minutes, Once, On Tue05/03/23 at 1500, For 1 dose Given 05/03/2023 2:42 PM [employer] 20 mg 120 mL/hr labetaloL (NORMODYNE,TRANDATE) injection 20 mg 20 mg, intravenous, at 120 mL/hr, Administer over 2 Minutes, Once, On Tue05/03/23 at 1545, For 1 dose Given 05/03/2023 3:08 PM [employer] 20 mg 120 mL/hr labetaloL (NORMODYNE,TRANDATE) injection 20 mg 20 mg, intravenous, at 120 mL/hr, Administer over 2 Minutes, Every 2 hours PRN, other, HR > 75, Starting on Tue05/03/23 at 1747 Given 05/03/2023 10:28 PM [employer] 20 mg 120 mL/ hr Given 05/03/2023 8:28 PM [employer] 20 mg 120 mL/hr Given 05/03/2023 6:19 PM [employer] 20 mg 120 mL/hr labetaloL (NORMODYNE,TRANDATE) injection 20 mg 20 mg, intravenous, at 120 mL/hr, Administer over 2 Minutes, Once, On [facility] 05/05/23 at 1230, For 1 dose Given 05/05/2023 11:55 AM [employer] 20 mg 120 mL/hr labetaloL (NORMODYNE,TRANDATE) injection 20 mg 20 mg, intravenous, at 120 mL/hr, Administer over 2 Minutes, Once, On Tue05/05/23 at 1630, For 1 dose Given 05/05/2023 3:52 PM [employer] 20 mg 120 mL/hr labetaloL (NORMODYNE,TRANDATE) injection 40 mg 40 mg, intravenous, at 240 mL/hr, Administer over 2 Minutes, Every 2 hours PRN, other, HR > 75, Starting on Tue05/04/23 at 0000 Given 05/04/2023 2:50 AM [employer] 40 mg 240 mL/h r Given 05/04/2023 12:34 AM [employer] 40 mg 240 mL/hr Lactated Ringer's (LR) bolus 500 mL 500 mL, intravenous, Once, On Tue05/03/23 at 0245, For 1 dose New Bag 05/03/2023 2:15 AM [employer] 500 mL Lactated Ringer's (LR) infusion 10 mL/hr, intravenous, Continuous, Starting on Tue05/02/23 at 2215 Rate/Dose Verify 2023 3:00 PM [employer] 10 mL/hr 10 mL/hr Rate/Dose Verify 2023 2:00 PM [employer] 10 mL/hr 10 mL/h r Rate/Dose Verify 2023 1:00 PM [employer] 10 mL/hr 10 mL/h r lidocaine (ASPERCREME) 4 % patch 1 patch 1 patch, transdermal, Administer over 12 Hours, Daily, First dose (after last modification) on Tue05/10/23 at 1800, Apply to affected area: neck Medication Applied 05/13/2023 8:35 AM [employer]ATE [employer] 1 patch Back Medication Applied 05/12/2023 9:11 AM [employer]ATE [employer] 1 patch Back Medication Applied 2023 8:31 AM [employer]ING [employer]ATE [employer] 1 patch Other (Comment) lidocaine (ASPERCREME) 4 % patch 2 patch 2 patch, transdermal, Administer over 12 Hours, Every 24 hours, First dose on Tue05/02/23 at 0345, Apply to affected area: back Medication Applied 05/07/2023 3:03 AM [employer]ATE [employer] 2 patches Back Medication Applied 05/04/2023 3:00 AM [employer]ING [employer]ATE [employer] 2 patches Back Medication Applied 05/02/2023 3:11 AM [employer]ING [employer]ATE [employer] 2 patches Right Shoulder lidocaine (ASPERCREME) 4 % patch 2 patch 2 patch, transdermal, Administer over 12 Hours, Daily, First dose (after last modification) on Tue05/13/23 at 2030, Apply to affected area: neck Medication Applied 05/15/2023 9:16 PM [employer]ING [employer]ATE [employer] 1 patch Back Medication Applied 05/14/2023 9:27 PM [employer]ING [employer]ATE [employer] 2 patches Other (Comment) Medication Applied 05/13/2023 9:25 PM ENG[employer]ING [employer]ATE [employer] 2 patches Back lidocaine (GLYDO) 2 % jelly 220 mg 220 mg (11 mL), urethral, Once, On Tue05/11/23 at 2100, For 1 dose Given 2023 9:00 PM [employer]ATE [employer] 220 mg lidocaine (XYLOCAINE) 10 mg/mL (1 %) injection 50 mg 50 mg (5 mL), subcutaneous, Once, On Tue05/10/23 at 1015, For 1 dose, Indications: Administration of Local Anesthesia, for LD removal by NSGYIndications:Administ ration of Local Anesthesia,for LD removal by NSGY Given 05/10/2023 9:46 AM [employer]ING [employer]ATE [employer] 50 mg Other (Comment) lidocaine (XYLOCAINE) 20 mg/mL (2 %) injection 100 mg 100 mg (5 mL), other, Once, On Catarina 05/05/23 at 1445, For 1 dose, Indications: Administration of Local AnesthesiaIndications:Ad ministration of Local Anesthesia Given 05/05/2023 2:42 PM [employer]ING [employer]ATE [employer] 100 mg lidocaine (XYLOCAINE) 20 mg/mL (2 %) preservative free injection - ADS Override Pull Starting on Catarina 05/05/23 at 2351, For 1 dose, Created by cabinet override Given 05/06/2023 1:15 AM [employer]ING [employer]ATE [employer] 100 mg lidocaine in dextrose 5% 2 g/250 mL (8 mg/mL) infusion (premix) 1 mg/kg/hr ? 70.7 kg [place] weight (8.8375 mL/hr, rounded to 8.84 mL/hr), [...] 5., RoutineIndications:Pain Rate/Dose Verify 05/02/2023 4:27 PM [employer]ATE [employer] 8.84 mL/hr New Bag 05/02/2023 1:06 PM [employer]ING [employer]ATE [employer] 1 mg/kg/hr 8.84 mL/hr lidocaine in dextrose 5% 2 g/250 mL (8 mg/mL) infusion (premix) 1 mg/kg/hr ? 70.7 kg [place] weight (8.8375 mL/hr, rounded to 8.84 mL/hr), [...] 5., RoutineIndications:Pain Rate/Dose Verify 2023 8:00 AM [employer]ING [employer]ATE [employer] 1 mg/kg/hr 8.84 mL/hr Rate/Dose Verify 2023 7:00 AM [employer]ATE [employer] 1 mg/kg/hr 8.84 mL /hr Rate/Dose Verify 2023 6:00 AM [employer]ATE [employer] 1 mg/kg/hr 8.84 mL /hr linezolid (ZYVOX) 600 mg/300 mL in dextrose 5% (premix) 600 mg 600 mg, intravenous, at 150 mL/hr, Administer over 2 Hours, Every 12 hours scheduled, First dose on Tue05/04/23 at 0015, Indications: Blood Stream/Endovascular InfectionIndications:Blood Stream/Endovascular Infection New Bag 05/06/2023 8:27 AM [employer] 600 mg 1 50 mL/hr New Bag 05/05/2023 8:38 PM [employer]ING [employer]ATE [employer] 600 mg 150 mL/hr New Bag 05/05/2023 10:05 AM [employer] 600 mg 150 mL/hr lisinopriL (PRINIVIL,ZESTRIL) tablet 10 mg 10 mg, feeding tube, Daily, First dose (after last modification) on Catarina 05/05/23 at 0900, Hold for MAP < 65. Given 05/05/2023 8:49 AM [employer]ATE [employer] 10 mg lisinopriL (PRINIVIL,ZESTRIL) tablet 5 mg 5 mg, feeding tube, Daily, First dose on 05/03/23 at 1815, Hold for MAP < 65. Given 05/04/2023 8:07 AM [employer]ATE [employer] 5 mg Given 05/03/2023 6:12 PM [employer]ING [employer]ATE [employer] 5 mg lisinopriL (PRINIVIL,ZESTRIL) tablet 5 mg 5 mg, feeding tube, Once, On Tue05/04/23 at 1000, For 1 dose Given 05/04/2023 9:56 AM [employer]ATE [employer] 5 mg lisinopriL (PRINIVIL,ZESTRIL) tablet 5 mg 5 mg, feeding tube, Once, On Tue05/04/23 at 2230, For 1 dose Given 05/04/2023 10:33 PM [employer]ING [employer]ATE [employer] 5 mg lisinopriL (PRINIVIL,ZESTRIL) tablet 5 mg 5 mg, oral, Once, On Catarina 05/05/23 at 1000, For 1 dose Given 05/05/2023 10:01 AM [employer]ING [employer]ATE [employer] 5 mg magnesium citrate oral solution 296 mL 296 mL, oral, Once, On Tue05/14/23 at 1030, For 1 dose Given 05/14/2023 11:06 AM [employer] 296 mL magnesium sulfate 2 g/50 mL in water (premix) 2 g 2 g, intravenous, Administer over 60 Minutes, Once, On Tue05/03/23 at 0015, For 1 dose New Bag 05/03/2023 1:10 AM [employer]ATE [employer] 2 g magnesium sulfate 2 g/50 mL in water (premix) 2 g 2 g, intravenous, Administer over 60 Minutes, Once, On Tue05/05/23 at 0145, For 1 dose New Bag 05/05/2023 1:20 AM [employer]ING [employer]ATE [employer] 2 g meropenem (MERREM) 1,000 mg/110 mL in sodium chloride 0.9% (premix) 1,000 mg 1,000 mg, intravenous, at 220 mL/hr, Administer over 30 Minutes, Every 8 hours scheduled, First dose (after last modification) on Tue05/04/23 at 1400, For 20 doses, Indications: Blood Stream/Endovascular InfectionIndications:Blood Stream/Endovascular Infection New Bag 05/10/2023 9:00 PM [employer]ATE [employer] 1,000 mg 2 20 mL/hr New Bag 05/10/2023 1:32 PM ENGRA[employer]ING PLATE [employer] 1,000 mg 220 mL/hr New Bag 05/10/2023 6:40 AM ENGRA[employer]ING [employer]ATE [employer] 1,000 mg 220 mL/hr meropenem (MERREM) 2,000 mg/120 mL in sodium chloride 0.9% (premix) 2,000 mg 2,000 mg, intravenous, Administer over 30 Minutes, Every 8 hours scheduled, First dose on Tue05/04/23 at 0015, Indications: Blood Stream/Endovascular InfectionIndications:Blood Stream/Endovascular Infection New Bag 05/04/2023 6:30 AM [employer]ING [employer]ATE [employer] 2,000 mg New Bag 05/04/2023 2:25 AM [employer]ING [employer]ATE [employer] 2,000 mg methocarbamoL (ROBAXIN) tablet 1,000 mg 1,000 mg, oral, 3 times daily, First dose on Tue05/07/23 at 1600 Given 2023 8:30 AM [employer] 1,000 mg Given 05/10/2023 8:17 PM [employer]ING [employer]ATE [employer] 1,000 mg Given 05/10/2023 3:15 PM [employer]ING [employer]ATE [employer] 1,000 mg methocarbamoL (ROBAXIN) tablet 750 mg 750 mg, oral, 3 times daily PRN, muscle spasms, espeically back pain, Starting on Tue05/13/23 at 1959 Given 05/14/2023 4:14 PM [employer]ATE [employer] 750 mg Given 05/14/2023 8:23 AM [employer]ING [employer]ATE [employer] 750 mg Given 05/13/2023 9:26 PM ENG[employer]ING [employer]ATE [employer] 750 mg methocarbamoL (ROBAXIN) tablet 750 mg 750 mg, oral, 3 times daily, First dose (after last modification) on Tue05/15/23 at 0900 Given 05/16/2023 4:14 PM [employer]ATE [employer] 750 mg Given 05/16/2023 9:31 AM [employer]ING [employer]ATE [employer] 750 mg Given 05/15/2023 9:17 PM [employer]ATE [employer] 750 mg metoprolol (LOPRESSOR) 5 mg/5 mL injection - ADS Override Pull Starting on Tue05/09/23 at 0630, For 1 dose, Created by cabinet override metoprolol (LOPRESSOR) injection 10 mg 10 mg, intravenous, Administer over 1 Minutes, Once, On Tue05/01/23 at 2145, For 1 dose Given 05/01/2023 9:14 PM [employer]ATE [employer] 10 mg metoprolol (LOPRESSOR) injection 10 mg 10 mg, intravenous, Administer over 1 Minutes, Once, On Tue05/04/23 at 0415, For 1 dose Given 05/04/2023 5:15 AM [employer]ATE [employer] 10 mg metoprolol (LOPRESSOR) injection 10 mg 10 mg, intravenous, Administer over 1 Minutes, Once, On Tue05/04/23 at 1000, For 1 dose Given 05/04/2023 9:55 AM [employer]ING [employer]ATE [employer] 10 mg metoprolol (LOPRESSOR) injection 10 mg 10 mg, intravenous, Administer over 1 Minutes, Every 6 hours PRN, other, for HR > 75, Starting on Tue05/04/23 at 1304 Given 05/05/2023 5:09 PM [employer]ING PLATE [employer] 10 mg Given 05/05/2023 10:50 AM ENG[employer]ING [employer]ATE [employer] 10 mg Given 05/04/2023 8:03 PM ENG[employer]ING [employer]ATE [employer] 10 mg metoprolol (LOPRESSOR) injection 10 mg 10 mg, intravenous, Administer over 1 Minutes, Once, On Tue05/05/23 at 0115, For 1 dose Given 05/05/2023 12:54 AM [employer]ATE [employer] 10 mg metoprolol (LOPRESSOR) injection 10 mg 10 mg, intravenous, Administer over 1 Minutes, Once, On Tue05/09/23 at 0700, For 1 dose Given 05/09/2023 6:33 AM [employer]ING [employer]ATE [employer] 10 mg metoprolol (LOPRESSOR) injection 5 mg 5 mg, intravenous, Administer over 1 Minutes, Once, On 05/01/23 at 2000, For 1 dose Given 05/01/2023 7:26 PM [employer]ING [employer]ATE [employer] 5 mg metoprolol (LOPRESSOR) injection 5 mg 5 mg, intravenous, Administer over 1 Minutes, Once, On Tue05/04/23 at 0015, For 1 dose Given 05/04/2023 12:28 AM [employer]ING [employer]ATE [employer] 5 mg metoprolol (LOPRESSOR) tablet 100 mg 100 mg, feeding tube, 2 times daily, First dose (after last modification) on Tue05/05/23 at 0900 Given 05/05/2023 8:48 AM [employer]ING [employer]ATE [employer] 100 mg metoprolol tartrate (LOPRESSOR) immediate release tablet 50 mg 50 mg, feeding tube, 2 times daily, First dose (after last modification) on Tue05/04/23 at 1345 Given 05/04/2023 8:04 PM [employer]ING [employer]ATE [employer] 50 mg Given 05/04/2023 1:26 PM [employer]ING [employer]ATE [employer] 50 mg midazolam (VERSED) 1 mg/mL injection - ADS Override Pull Starting on Tue05/03/23 at 2053, For 1 dose, Created by cabinet override midazolam (VERSED) 1 mg/mL injection 2 mg 2 mg, intravenous, Every 1 hour PRN, sedation, Starting on Tue05/04/23 at 0330 Given 05/06/2023 4:20 AM [employer]ING [employer]ATE [employer] 2 mg Given 05/05/2023 10:28 PM [employer]ING [employer]ATE [employer] 2 mg Given 05/05/2023 5:11 AM ENG[employer]ING [employer]ATE [employer] 2 mg midazolam (VERSED) 1 mg/mL injection 2 mg 2 mg, intravenous, Every 2 hours PRN, anxiety, Starting on Tue05/08/23 at 1745 Given 05/09/2023 1:58 AM [employer]ING [employer]ATE [employer] 2 mg Given 05/08/2023 10:12 PM ENG[employer]ING PLATE [employer] 2 mg Given 05/08/2023 7:37 PM ENGRA[employer]ING PLATE [employer] 2 mg midazolam (VERSED) 1 mg/mL injection 5 mg 5 mg, intravenous, Once, On Tue05/03/23 at 2130, For 1 dose Given 05/03/2023 9:05 PM [employer]ATE [employer] 5 mg morphine 2 mg/mL injection - ADS Override Pull Starting on Tue05/01/23 at 0508, For 1 dose, Created by cabinet override morphine injection 4 mg 4 mg, intravenous, Administer over 4 Minutes, Every 4 hours PRN, 1st line for pain, Starting on Tue05/01/23 at 0507, For 3 doses Given 05/01/2023 5:11 AM [employer]ING [employer]ATE [employer] 4 mg niCARdipine (CARDENE) 125,000 mcg in [...] only, Routine Rate/Dose Verify 05/10/2023 3:00 PM [employer]ING [employer]ATE [employer] 1.5 mcg/kg/min 20.1 mL/hr Rate/Dose Verify 05/10/2023 2:00 PM [employer]ATE [employer] 1.5 mcg/kg/min 20. 1 mL/hr Rate/Dose Verify 05/10/2023 1:00 PM ENG[employer]ING [employer]ATE [employer] 1.5 mcg/kg/min 20. 1 mL/hr niCARdipine (CARDENE) [...] only, Routine Rate/Dose Verify 05/10/2023 4:00 PM ENGRA[employer]ING PLATE [employer] 1.5 mcg/kg/min 20.1 mL/hr Rate/Dose Change 05/10/2023 3:40 PM ENGRA[employer]ING PLATE [employer] 1.5 mcg/kg/min 20. 1 mL/hr niCARdipine (CARDENE) [...] only, Routine Rate/Dose Verify 2023 7:00 AM [employer]ING PLATE [employer] 1 mcg/kg/min 13.39 mL/hr Rate/Dose Verify 2023 6:00 AM ENG[employer]ING PLATE [employer] 1 mcg/kg/min 13.39 mL/hr Rate/Dose Change 2023 5:25 AM ENG[employer]ING PLATE [employer] 1 mcg/kg/min 13.39 mL/hr niCARdipine (CARDENE) 125,000 [...] only, Routine Rate/Dose Verify 2023 3:00 PM [employer]ING [employer]ATE [employer] 1 mcg/kg/min 13.39 mL/hr Rate/Dose Verify 2023 2:00 PM [employer]ING [employer]ATE [employer] 1 mcg/kg/min 13.39 mL/hr Rate/Dose Verify 2023 1:00 PM [employer]ING [employer]ATE [employer] 1 mcg/kg/min 13.39 mL/hr niCARdipine in 0.9% [...] only, Routine New Bag 05/09/2023 6:05 AM [employer]ING [employer]ATE [employer] 2.5 mcg/kg/min 33.5 mL/hr Rate/Dose Verify 05/09/2023 6:00 AM ENG[employer]ING [employer]ATE [employer] 2.5 mcg/kg/min 33. 5 mL/hr Rate/Dose Change 05/09/2023 5:58 AM ENG[employer]ING PLATE [employer] 2.5 mcg/kg/min 33. 5 mL/hr niCARdipine in [...] <160, Routine Rate/Dose Change 05/01/2023 7:35 AM ENG[employer]ING [employer]ATE [employer] 1 mcg/kg/min 62.6 mL/hr New Bag 05/01/2023 7:25 AM ENG[employer]ING PLATE [employer] 0.5 mcg/kg/min 31.3 mL/h r niCARdipine in [...] <100, Routine Rate/Dose Change 05/01/2023 11:43 AM ENG[employer]ING PLATE [employer] 1.5 mcg/kg/min 93.9 mL/hr Rate/Dose Change 05/01/2023 11:37 AM ENG[employer]ING PLATE [employer] 2 mcg/kg/min 125. 2 mL/hr New Bag 05/01/2023 11:03 AM ENG[employer]ING PLATE [employer] 2.5 mcg/kg/min 156.5 mL /hr norepinephrine in [...] <180, Routine Rate/Dose Change 05/08/2023 11:06 PM [employer]ING [employer]ATE [employer] 0.05 mcg/kg/min 10.46 mL/hr Rate/Dose Change 05/08/2023 11:01 PM [employer]ING [employer]ATE [employer] 0.1 mcg/kg/min 20 .9 mL/hr Rate/Dose Change 05/08/2023 11:00 PM [employer]ING [employer]ATE [employer] 0.14 mcg/kg/min 2 9.3 mL/hr ondansetron (ZOFRAN) injection 4 mg 4 mg, intravenous, Administer over 2 Minutes, Every 4 hours PRN, nausea, vomiting, Starting on 05/01/23 at 0507 Given 05/01/2023 5:46 AM [employer]ING [employer]ATE [employer] 4 mg ondansetron (ZOFRAN) injection 4 mg 4 mg, intravenous, Administer over 2 Minutes, Every 6 hours PRN, nausea, vomiting, Starting on 05/01/23 at 1040, Indications: nausea and vomitingIndications:nausea and vomiting Given 05/08/2023 9:41 PM [employer]ING [employer]ATE [employer] 4 mg Given 05/07/2023 3:40 PM ENGRA[employer]ING [employer]ATE [employer] 4 mg Given 05/06/2023 5:55 AM ENG[employer]ING PLATE [employer] 4 mg ondansetron ODT (ZOFRAN-ODT) disintegrating tablet 4 mg 4 mg, oral, Every 4 hours PRN, nausea, Starting on 05/16/23 at 1034 oxyCODONE (ROXICODONE) tablet 10 mg 10 mg, oral, Every 4 hours PRN, 1st line for pain, Starting on 05/02/23 at 1220, Indications: PainIndications:Pain Given 05/03/2023 7:39 AM [employer]ING [employer]ATE [employer] 10 mg Given 05/02/2023 1:06 PM [employer]ING PLATE [employer] 10 mg oxyCODONE (ROXICODONE) tablet 10 mg 10 mg, oral, Every 4 hours PRN, 1st line for pain, Starting on 05/07/23 at 1013, Indications: PainIndications:Pain Given 05/07/2023 7:11 PM [employer]ING PLATE [employer] 10 mg Given 05/07/2023 2:56 PM [employer]ING PLATE [employer] 10 mg Given 05/07/2023 10:30 AM ENGRA[employer]ING PLATE [employer] 10 mg oxyCODONE (ROXICODONE) tablet 10 mg 10 mg, oral, Every 3 hours PRN, 1st line for pain, Starting on 05/07/23 at 2030, Indications: PainIndications:Pain Given 05/08/2023 9:17 AM ENG[employer]ING PLATE [employer] 10 mg Given 05/08/2023 6:01 AM ENG[employer]ING PLATE [employer] 10 mg Given 05/08/2023 3:28 AM ENGRA[employer]ING PLATE [employer] 10 mg oxyCODONE (ROXICODONE) tablet 10 mg 10 mg, oral, Every 3 hours PRN, 1st line for pain, Starting on 05/08/23 at 1200, Indications: PainIndications:Pain Given 05/16/2023 12:08 PM ENGRAVING PLATE [employer] 10 mg Given 05/16/2023 6:25 AM ENG[employer]ING PLATE [employer] 10 mg Given 05/15/2023 9:17 PM ENGRAVING PLATE [employer] 10 mg oxyCODONE (ROXICODONE) tablet 5 mg 5 mg, oral, Every 4 hours PRN, 1st line for pain, Starting on 05/01/23 at 1046, Indications: PainIndications:Pain Given 05/02/2023 9:02 AM ENG[employer]ING PLATE [employer] 5 mg Given 05/02/2023 5:08 AM ENG[employer]ING PLATE [employer] 5 mg Given 05/02/2023 1:03 AM ENGRAVING PLATE [employer] 5 mg oxyCODONE (ROXICODONE) tablet 5 mg 5 mg, oral, Every 4 hours PRN, 1st line for pain, Starting on Catarina 05/05/23 at 1529, Indications: PainIndications:Pain Given 05/07/2023 8:00 AM ENG[employer]ING PLATE [employer] 5 mg Given 05/07/2023 3:41 AM ENG[employer]ING [employer]ATE [employer] 5 mg Given 05/06/2023 5:07 PM ENGRAVING PLATE [employer] [address] (PROTONIX) extended release tablet 40 mg 40 mg, oral, Daily, First dose on 05/07/23 at 1915, Do not crush, chew, cut, dissolve, open or otherwise manipulate tablet/capsule., Indications: Stress Ulcer ProphylaxisIndications:Stress Ulcer Prophylaxis Given 2023 8:30 AM ENG[employer]ING [employer]ATE [employer] 40 mg Given 05/10/2023 8:15 AM ENGRA[employer]ING [employer]ATE [employer] 40 mg Given 05/09/2023 8:02 AM ENGRAVING PLATE [employer] 40 mg perflutren protein-a (OPTISON) 3 mL in sodium chloride 0.9% 8 mL syringe 1-8 mL, intravenous, Once in imaging, contrast, Starting on Tue05/02/23 at 1129, For 1 dose, Intra-Procedure (CV) Contrast Given 05/02/2023 12:22 PM ENGRAVING PLATE [employer] 3 mL phenylephrine in 0.9% sodium chloride [...] light, Routine New Bag 05/09/2023 2:36 AM ENGRAVING PLATE [employer] 0.1 mcg/kg/min 6.7 mL/hr polyethylene glycol (MIRALAX) packet 17 g 17 g, oral, Daily, First dose on Tue05/03/23 at 0900, Hold for diarrhea, Indications: constipationIndications: constipation Given 05/04/2023 8:07 AM [employer]ATE [employer] 17 g Given 05/03/2023 7:40 AM ENGRA[employer]ING [employer]ATE [employer] 17 g polyethylene glycol (MIRALAX) packet 17 g 17 g, feeding tube, Daily, First dose (after last modification) on Catarina 05/05/23 at 0900, Hold for diarrhea, Indications: constipationIndications:constipation Given 05/05/2023 8:49 AM [employer]ING [employer]ATE [employer] 17 g polyethylene glycol (MIRALAX) packet 17 g 17 g, oral, Daily, First dose (after last modification) on Tue05/06/23 at 0900, Hold for diarrhea, Indications: constipationIndications:constipation Given 05/13/2023 8:36 AM ENG[employer]ING [employer]ATE [employer] 17 g Given 05/12/2023 7:27 AM ENGRA[employer]ING PLATE [employer] 17 g Given 2023 8:30 AM ENG[employer]ING PLATE [employer] 17 g polyethylene glycol (MIRALAX) packet 17 g 17 g, oral, 2 times daily, First dose (after last modification) on Tue05/13/23 at 2100, Hold for diarrhea, Indications: constipationIndications:constipation Given 05/16/2023 9:31 AM ENG[employer]ING [employer]ATE [employer] 17 g Given 05/14/2023 8:22 AM ENGRAVING [employer]ATE [employer] 17 g potassium chloride (KLOR-CON) packet 20 mEq 20 mEq, feeding tube, Once, On Tue05/03/23 at 0030, For 1 dose, Dissolve one packet in at least 120 mL of cold water or other beverage prior to administration. Given 05/03/2023 12:22 AM ENGRA[employer]ING [employer]ATE [employer] 20 mEq potassium chloride (KLOR-CON) packet 20 mEq 20 mEq, feeding tube, Every 6 hours, First dose on Tue05/04/23 at 1200, Dissolve one packet in at least 120 mL of cold water or other beverage prior to administration. Given 05/05/2023 5:11 AM ENG[employer]ING [employer]ATE [employer] 20 m Eq Given 05/04/2023 11:00 PM ENGRA[employer]ING PLATE [employer] 20 mEq Given 05/04/2023 5:42 PM ENGRAVING PLATE [employer] 20 mEq potassium chloride (KLOR-CON) packet 40 mEq 40 mEq, feeding tube, Once as needed, K < 4, Starting on Tue05/03/23 at 0731, For 1 dose, Dissolve one packet in at least 120 mL of cold water or other beverage prior to administration. Given 05/03/2023 11:50 AM ENGRA[employer]ING [employer]ATE [employer] 40 mEq potassium chloride (KLOR-CON) packet 40 mEq 40 mEq, feeding tube, Once, On Tue05/03/23 at 1515, For 1 dose, Dissolve one packet in at least 120 mL of cold water or other beverage prior to administration. Given 05/03/2023 3:07 PM ENGRAVING PLATE [employer] 40 mEq potassium chloride (KLOR-CON) packet 40 mEq 40 mEq, feeding tube, Once, On Tue05/04/23 at 0600, For 1 dose, Dissolve one packet in at least 120 mL of cold water or other beverage prior to administration. Given 05/04/2023 6:00 AM ENG[employer]ING [employer]ATE [employer] 40 mEq potassium chloride (KLOR-CON) packet 40 mEq 40 mEq, feeding tube, Once, On Tue05/04/23 at 1945, For 1 dose, Dissolve one packet in at least 120 mL of cold water or other beverage prior to administration. Given 05/04/2023 7:58 PM ENGRAVING PLATE [employer] 40 mEq potassium chloride (KLOR-CON) packet 40 mEq 40 mEq, oral, 2 times daily PRN, for K <4.5, Starting on Catarina 05/05/23 at 1251, Dissolve one packet in at least 120 mL of cold water or other beverage prior to administration. Given 05/05/2023 8:02 PM ENGRAVING PLATE [employer] 40 mEq potassium chloride 20 mEq/50 mL in sterile water (premix) 20 mEq 20 mEq, intravenous, at 25 mL/hr, Administer over 2 Hours, Every 6 hours, First dose on Tue05/06/23 at 0700, Central line only, Indications: hypokalemiaIndications:hypokalemia New Bag 05/07/2023 6:12 AM [employer]ING [employer]ATE [employer] 20 mEq 25 mL/hr Rate/Dose Verify 05/07/2023 3:00 AM ENGRAVING PLATE [employer] 25 mL/h r New Bag 05/07/2023 1:05 AM ENGRA[employer]ING PLATE [employer] 20 mEq 25 mL/hr potassium chloride 20 mEq/50 mL in sterile water (premix) 20 mEq 20 mEq, intravenous, at 25 mL/hr, Administer over 2 Hours, 2 times daily (for diuretics), First dose (after last reorder) on Tue05/09/23 at 0945, For 2 doses, Central line only, Indications: hypokalemiaIndications:hypokalem ia Rate/Dose Verify 05/09/2023 5:00 PM [employer]ING [employer]ATE [employer] 25 mL/hr Rate/Dose Verify 05/09/2023 4:00 PM ENGRAVING PLATE [employer] 25 mL/h r New Bag 05/09/2023 3:19 PM ENGRAVING PLATE [employer] 20 mEq 25 mL/hr potassium chloride 40 mEq/100 mL in sterile water (premix) 40 mEq 40 mEq, intravenous, at 25 mL/hr, Administer over 4 Hours, Once, On Tue05/04/23 at 1000, For 1 dose, Central line only, Indications: hypokalemiaIndications:hypoka lemia New Bag 05/04/2023 11:22 AM ENGRAVING PLATE [employer] 40 mEq 25 mL/hr potassium chloride 40 mEq/100 mL in sterile water (premix) 40 mEq 40 mEq, intravenous, at 25 mL/hr, Administer over 4 Hours, Once, On Tue05/04/23 at 1945, For 1 dose, Central line only, Indications: hypokalemiaIndications:hypoka lemia New Bag 05/04/2023 7:57 PM [employer]RA[employer]ING PLATE [employer] 40 mEq 25 mL/hr potassium chloride 40 mEq/100 mL in sterile water (premix) 40 mEq 40 mEq, intravenous, at 25 mL/hr, Administer over 4 Hours, Once, On Tue05/06/23 at 0230, For 1 dose, Central line only, Indications: hypokalemiaIndications:hypoka lemia Rate/Dose Verify 05/06/2023 2:00 AM ENGRAVING PLATE [employer] 25 mL/hr New Bag 05/06/2023 1:53 AM ENGRAVING PLATE [employer] 40 mEq 25 mL/hr potassium chloride 40 mEq/100 mL in sterile water (premix) 40 mEq 40 mEq, intravenous, at 25 mL/hr, Administer over 4 Hours, Once, On Tue05/06/23 at 0800, For 1 dose, Central line only, Indications: hypokalemiaIndications:hypokalemia New Bag 05/06/2023 8:15 AM ENGRAVING PLATE [employer] 40 mEq 25 mL/hr potassium chloride 40 mEq/100 mL in sterile water (premix) 40 mEq 40 mEq, intravenous, at 25 mL/hr, Administer over 4 Hours, 2 times daily PRN, for K <4.5, Starting on Tue05/06/23 at 1149, Central line only, Indications: hypokalemiaIndications:hypokalemia New Bag 05/08/2023 7:38 PM ENGRAVING PLATE [employer] 40 mEq 25 mL/hr New Bag 05/07/2023 9:45 PM ENGRAVING PLATE [employer] 40 mEq 25 mL/hr Rate/Dose Verify 05/07/2023 1:00 AM ENGRAVING PLATE [employer] 25 mL/h r potassium chloride 40 mEq/100 mL in sterile water (premix) 40 mEq 40 mEq, intravenous, at 25 mL/hr, Administer over 4 Hours, Daily, First dose (after last modification) on Tue05/07/23 at 1300, For 3 doses, Central line only, Indications: hypokalemiaIndications:hypokalemia New Bag 05/09/2023 8:36 AM ENGRAVING PLATE [employer] 40 mEq 25 mL/hr New Bag 05/07/2023 2:13 PM ENGRAVING PLATE [employer] 40 mEq 25 mL/hr potassium chloride 40 mEq/100 mL in sterile water (premix) 40 mEq 40 mEq, intravenous, at 25 mL/hr, Administer over 4 Hours, Once, On Tue05/09/23 at 0200, For 1 dose, Central line only, Indications: hypokalemiaIndications:hypokalem ia Rate/Dose Verify 05/09/2023 2:00 AM ENGRA[employer]ING PLATE [employer] 25 mL/hr New 05/09/2023 1:30 AM ENGRAVING PLATE [employer] 40 mEq 25 mL/hr potassium chloride 40 mEq/520 mL in sodium chloride 0.9% (premix) 40 mEq 40 mEq, intravenous, at 130 mL/hr, Administer over 4 Hours, Every 4 hours, First dose on Tue05/03/23 at 2045, For 2 doses, Total dose = 80 mEq, Indications: hypokalemiaIndications:hypokalemia New Bag 05/04/2023 1:45 AM ENGRAVING PLATE [employer] 40 mEq 130 mL/hr New Bag 05/03/2023 9:00 PM ENGRAVING PLATE [employer] 40 mEq 130 mL/hr potassium chloride 40 mEq/520 mL in sodium chloride 0.9% (premix) 40 mEq 40 mEq, intravenous, at 130 mL/hr, Administer over 4 Hours, Every 4 hours, First dose (after last reorder) on Tue05/04/23 at 0600, For 2 doses, Total dose = 80 mEq, Indications: hypokalemiaIndications:hypokalemia New Bag 05/04/2023 6:30 AM ENGRAVING PLATE [employer] 40 mEq 130 mL/hr potassium chloride ER [...] crushed or chewed. Given 05/05/2023 1:53 PM ENGRAVING PLATE [employer] 20 mEq potassium chloride ER (KLOR-CON) extended [...] crushed or chewed. Given 05/10/2023 3:15 PM ENGRAVING PLATE [employer] 20 mEq Given 05/10/2023 9:19 AM ENGRA[employer]ATE [employer] 20 mEq potassium, sodium phosphates (PHOS-NAK) 280-160-250 mg packet 1 packet 1 packet, oral, Once, On 05/11/23 at 0145, For 1 dose, Each packet contains elemental phosphorus 250 mg (8 mmol), potassium 280 mg (7.1 mEq), and sodium 160 mg (6.9 mEq). Given 2023 1:39 AM [employer]ATE [employer] 1 packet potassium, sodium phosphates (PHOS-NAK) 280-160-250 mg packet 2 packet 2 packet, oral, Once, On [place] 05/05/23 at 0145, For 1 dose, mg dosing is based on phosphorus component. Each packet contains 250 mg elemental phosphorus. Each packet contains elemental phosphorus 250 mg (8 mmol), potassium 280 mg (7.1 mEq), and sodium 160 mg (6.9 mEq). Given 05/05/2023 1:20 AM [employer]ING [employer] 2 packets prochlorperazine (COMPAZINE) 10 mg/2 mL (5 mg/mL) injection - ADS Override Pull Starting on 05/07/23 at 1933, For 1 dose, Created by cabinet override prochlorperazine (COMPAZINE) injection 5 mg 5 mg, intravenous, Administer over 2 Minutes, Every 6 hours PRN, nausea, vomiting, 2nd line for n/v, Starting on 05/07/23 at 1933 Given 05/07/2023 7:36 PM [employer] 5 mg propofol (DIPRIVAN) 10 mg/mL infusion [...] only, Routine Rate/Dose Verify 05/04/2023 4:00 AM ENGRAVING PLATE MAKER 60 mcg/kg/min 38.7 mL/hr New Bag 05/04/2023 1:57 AM ENGRAVING PLATE MAKER 60 mcg/kg/min 38.7 mL/hr New Bag 05/04/2023 12:27 AM ENGRAVING PLATE MAKER 60 mcg/kg/min 38.7 mL/h r propofol (DIPRIVAN) [...] only, Routine New Bag 05/06/2023 9:33 PM ENGRAVING PLATE MAKER 50 mcg/kg/min 33.5 mL/hr propofol (DIPRIVAN) 10 [...] only, Routine New Bag 05/07/2023 1:28 AM ENGRAVING PLATE MAKER 20 mcg/kg/min 13.39 mL/hr Rate/Dose Change 05/07/2023 1:19 AM ENGRAVING PLATE MAKER 30 mcg/kg/min 20.1 mL/hr Rate/Dose Change 05/07/2023 1:00 AM ENGRAVING PLATE MAKER 40 mcg/kg/min 26.8 mL/hr propofoL (DIPRIVAN) 10 [...] Room temperature only Given 05/05/2023 9:34 AM ENGRAVING PLATE MAKER 30 mg propranoloL (INDERAL) injection 1 mg 1 mg, intravenous, Once, On Tue05/09/23 at 0200, For 1 dose, For IV administration, do not exceed a rate of 1 mg/min. Given 05/09/2023 1:57 AM ENGRAVING PLATE MAKER 1 mg propranoloL (INDERAL) injection 1 mg 1 mg, intravenous, Once, On Tue05/09/23 at 0215, For 1 dose, For IV administration, do not exceed a rate of 1 mg/min. Given 05/09/2023 3:22 AM ENGRAVING PLATE MAKER 1 mg propranoloL (INDERAL) injection 1 mg 1 mg, intravenous, Once, On Tue05/09/23 at 0215, For 1 dose, For IV administration, do not exceed a rate of 1 mg/min. Given 05/09/2023 2:52 AM ENGRAVING PLATE MAKER 1 mg QUEtiapine (SEROquel) tablet 100 mg 100 mg, oral, Nightly, First dose on 05/08/23 at 2100 Given 05/08/2023 8:05 PM ENGRAVING PLATE MAKER 100 mg QUEtiapine (SEROquel) tablet 100 mg 100 mg, oral, Daily, First dose (after last modification) on Tu05/10/23 at 0900 Given 2023 8:30 AM ENGRAVING PLATE MAKER 100 mg Given 05/10/2023 8:15 AM ENGRAVING PLATE MAKER 100 mg QUEtiapine (SEROquel) tablet 150 mg 150 mg, oral, Nightly, First dose on Tue05/09/23 at 2100 Given 05/10/2023 8:17 PM ENGRAVING PLATE MAKER 150 mg Given 05/09/2023 8:11 PM ENGRAVING PLATE MAKER 150 mg QUEtiapine (SEROquel) tablet 25 mg 25 mg, oral, Once, On Catarina 05/05/23 at 1745, For 1 dose Given 05/05/2023 5:50 PM ENGRAVING PLATE MAKER 25 mg QUEtiapine (SEROquel) tablet 50 mg 50 mg, oral, Daily, First dose (after last modification) on Catarina 05/12/23 at 0900 Given 05/12/2023 7:26 AM ENGRAVING PLATE MAKER 50 mg QUEtiapine (SEROquel) tablet 50 mg 50 mg, oral, Nightly, First dose (after last modification) on 05/16/23 at 2100 QUEtiapine (SEROquel) tablet 75 mg 75 mg, oral, Nightly, First dose (after last modification) on Tue05/11/23 at 2100 Given 05/15/2023 9:17 PM ENGRAVING PLATE MAKER 75 mg Given 05/14/2023 9:27 PM ENGRAVING PLATE MAKER 75 mg Given 05/13/2023 9:26 PM ENGRAVING PLATE MAKER 75 mg rocuronium (ZEMURON) injection 120 mg 120 mg, intravenous, Once, On Tue05/06/23 at 2115, For 1 dose, Patient should receive adequate sedative/anesthetic agent before a paralytic agent is administered. WARNING: Causes respiratory paralysis. Patient must be ventilated., Indications: Muscle RelaxationIndications:Muscle Relaxation Given 05/06/2023 9:26 PM ENGRAVING PLATE MAKER 120 mg senna (SENOKOT) tablet 1 tablet 1 tablet, oral, 2 times daily, First dose on 05/01/23 at 1115, If able to swallow tablets. Hold for diarrhea., Indications: constipationIndications:constipation Given 05/02/2023 8:38 AM ENGRAVING PLATE MAKER 1 table t Given 05/01/2023 10:01 PM ENGRAVING PLATE MAKER 1 tablet Given 05/01/2023 11:33 AM ENGRAVING PLATE MAKER 1 tablet senna 1.76 mg/mL syrup 8.8 mg 8.8 mg, feeding tube, 2 times daily, First dose on 05/01/23 at 1115, If receiving medications per tube. Hold for diarrhea., Indications: constipationIndications:constipation Given 05/05/2023 8:49 AM ENGRAVING PLATE MAKER 8.8 mg Given 05/04/2023 8:04 PM ENGRAVING PLATE MAKER 8.8 mg Given 05/04/2023 8:07 AM ENGRAVING PLATE MAKER 8.8 mg senna 1.76 mg/mL syrup 8.8 mg 8.8 mg, oral, 2 times daily, First dose (after last modification) on Tue05/05/23 at 2100, If receiving medications per tube. Hold for diarrhea., Indications: constipationIndications:constipation Given 05/06/2023 8:21 AM ENGRAVING PLATE MAKER 8.8 mg Given 05/05/2023 9:02 PM ENGRAVING PLATE MAKER 8.8 mg senna-docusate (PERICOLACE) 8.6-50 mg per tablet 1 tablet 1 tablet, oral, 2 times daily, First dose (after last modification) on Tue05/11/23 at 2100 Given 05/13/2023 8:36 AM ENGRAVING PLATE MAKER 1 tablet Given 05/12/2023 8:15 PM ENGRAVING PLATE MAKER 1 tablet Given 05/12/2023 7:26 AM ENGRAVING PLATE MAKER 1 tablet senna-docusate (PERICOLACE) 8.6-50 mg per tablet 2 tablet 2 tablet, oral, 2 times daily, First dose (after last modification) on Tue05/13/23 at 2100 Given 05/15/2023 8:52 AM ENGRAVING PLATE MAKER 2 tablets Given 05/14/2023 8:23 AM ENGRAVING PLATE MAKER 2 tablets sodium bicarbonate 8.4 % (1 mEq/mL) injection - ADS Override Pull Starting on Tue05/03/23 at 0929, For 1 dose, Created by cabinet override sodium bicarbonate 8.4 % (1 mEq/mL) injection 50 mEq 50 mEq, intravenous, Administer over 5 Minutes, Once, On Tue05/03/23 at 1000, For 1 dose Given 05/03/2023 9:34 AM ENGRAVING PLATE MAKER 50 mEq sodium bicarbonate 8.4 % (1 mEq/mL) injection 50 mEq 50 mEq, intravenous, Administer over 5 Minutes, Once, On Tue05/03/23 at 1215, For 1 dose Given 05/03/2023 11:50 AM ENGRAVING PLATE MAKER 50 mEq sodium chloride (OCEAN) 0.65 % nasal spray 2 spray 2 spray, each nostril, 3 times daily with meals, First dose on Tue05/03/23 at 1800 Given 05/05/2023 11:44 AM ENGRAVING PLATE MAKER 2 sprays Given 05/05/2023 8:52 AM ENGRAVING PLATE MAKER 2 sprays Given 05/04/2023 5:43 PM ENGRAVING PLATE MAKER 2 sprays sodium chloride (OCEAN) 0.65 % nasal spray 2 spray 2 spray, each nostril, Every 2 hours while awake, First dose (after last modification) on Catarina 05/05/23 at 1600 Given 05/15/2023 9:58 PM ENGRAVING PLATE MAKER 2 sprays Given 05/15/2023 8:11 PM ENGRAVING PLATE MAKER 2 sprays Given 05/15/2023 8:55 AM ENGRAVING PLATE MAKER 2 sprays sodium chloride 0.9% 0.9% infusion - ADS Override Pull Starting on 05/01/23 at 0523, For 1 dose, Created by cabinet override sodium chloride 0.9% flush 0.5-20 mL 0.5-20 mL, intra-catheter, Every 8 hours scheduled, First dose on [place] 05/01/23 at 1400, Flush volume based on line type and size. Given 05/12/2023 2:03 PM ENGRAVING PLATE MAKER 10 mL Given 2023 1:57 PM ENGRAVING PLATE MAKER 10 mL Given 05/10/2023 8:19 PM ENGRAVING PLATE MAKER 10 mL sodium chloride 0.9% flush 0.5-20 mL 0.5-20 mL, intra-catheter, As needed, line care, Starting on [place] 05/01/23 at 1038, Flush volume based on line type and size. Flush before and after each use. Given 05/10/2023 6:39 AM ENGRAVING PLATE MAKER 10 mL sodium chloride 0.9% IVPB 0-250 mL 0-250 mL, intravenous, Once, On Catarina 05/05/23 at 2030, For 1 dose, Prime blood tubing and administer amount needed to clear line (usually 50-100 mL) after transfusion complete. New Bag 05/05/2023 8:22 PM ENGRAVING PLATE MAKER 250 mL sodium chloride 0.9% IVPB 0-250 mL 0-250 mL, intravenous, Once, On Catar[place] 05/05/23 at 2345, For 1 dose, Prime blood tubing and administer amount needed to clear line (usually 50-100 mL) after transfusion complete. New Bag 05/05/2023 11:35 PM ENGRAVING PLATE MAKER 250 mL sodium chloride 0.9% IVPB 0-250 mL 0-250 mL, intravenous, Once, On Catarina 05/05/23 at 2345, For 1 dose, Prime blood tubing and administer amount needed to clear line (usually 50-100 mL) after transfusion complete. New Bag 05/05/2023 11:30 PM ENGRAVING PLATE MAKER 250 mL sodium chloride 0.9% IVPB 0-250 mL 0-250 mL, intravenous, Once, On Catarina 05/12/23 at 0815, For 1 dose, Prime blood tubing and administer amount needed to clear line (usually 50-100 mL) after transfusion complete. New Bag 05/12/2023 8:45 AM ENGRAVING PLATE MAKER 250 mL sodium chloride 0.9% solution 3-12 mL/hr, intra-catheter, Continuous, Starting on Tue05/01/23 at 1115, Amount needed for invasive pressure monitoring with 300 mg Hg to maintain patency. Rate/Dose Verify 2023 3:00 PM ENGRAVING PLATE MAKER 6 mL/hr 6 mL/hr Rate/Dose Verify 2023 2:00 PM ENGRAVING PLATE MAKER 6 mL/hr 6 mL/hr Rate/Dose Verify 2023 1:00 PM ENGRAVING PLATE MAKER 6 mL/hr 6 mL/hr sodium chloride 0.9% solution 3-12 mL/hr, intra-catheter, Continuous, Starting on 05/02/23 at 2215, Amount needed for invasive pressure monitoring with 300 mg Hg to maintain patency. New Bag 05/10/2023 1:32 PM ENGRAVING PLATE MAKER 6 mL/hr 6 mL/hr New Bag 05/06/2023 10:00 AM ENGRAVING PLATE MAKER 6 mL/hr 6 mL/hr Rate/Dose Verify 05/02/2023 11:00 PM ENGRAVING PLATE MAKER 3 mL/hr 3 mL/h r sodium phosphate - potassium phosphate (K-PHOS NEUTRAL) tablet 250 mg 250 mg, oral, Once, On 05/07/23 at 0730, For 1 dose, Each tablet contains elemental phosphorus 250 mg (8 mmol), potassium 45 mg (1.1 mEq), and sodium 298 mg (13 mEq). Given 05/07/2023 8:00 AM ENGRAVING PLATE MAKER 250 m g tamsulosin (FLOMAX) extended release capsule 0.4 mg 0.4 mg, oral, Daily, First dose (after last modification) on Tue05/11/23 at 0530, Do not crush, chew, cut, dissolve, open or otherwise manipulate tablet/capsule. Given 05/16/2023 9:31 AM ENGRAVING PLATE MAKER 0.4 mg Given 05/15/2023 8:52 AM ENGRAVING PLATE MAKER 0.4 mg Given 05/14/2023 8:23 AM ENGRAVING PLATE MAKER 0.4 mg documented in this encounter Discontinued Medications Medication Sig Discontinue Reason Start Date End Da te QUEtiapine (SEROquel) 25 mg tablet Take 2 tablets (50 mg total) by mouth nightly Stop Taking at Discharge 05/16/2023 05/16/2023 documented as of this encounter Active and Recently Administered Medications Times are shown in ENGRAVING PLATE MAKER. Scheduled Medication Order 05/14/2023 05/15/2023 05/16/2023 acetaminophen [...] Keller RN) 0553 (Given - Provider: Gladys iDetz RN)1416 (Given - Provider: Db Harrison RN)2116 [...] 2 puff, inhalation, Every 4 hours PRN (cable respooler), wheezing, Starting on Catarina 05/05/23 at 1249 [...] 05/01/2023 documented in this encounter Care Teams Knit Goods Mender Relationship Specialty Start Date End Date Unknown, Notinfile PCP - General 04/30/23 06/05/23 Faustino Herrera MD [address] [place] [address] Surgeon Vascular Surgery 05/16/23 documented as of this encounter
--- OUTSIDE RECORDS SUMMARY | 2024-05-30 06:32 | XMS_ITS | Encounter Summary ---
Author Organization [facility] Address [address] [place] [address] Phone Care Team Providers Care Cordwood Cutter Helper Name Role Phone Unknown, Notinfile Primary Care Provider Unavail able Encounter Details Date Type Department Care Team (Late st Contact Info) Description 05/09/2023 8:40 AM SHUTTLE REPAIRER Ancillary Procedure [facility] Vascular Lab IP [address] [facility] [address] [place] [address] Social History Tobacco Use Types Packs/Day Years Used Date Smoking Tobacco: Never Smokeless Tobacco: Never Personal Safety Answer Date Recorded Getting School Help Needed Denies 05/09 Sex and Gender Information Value Date Recorded Sex Assigned at Not on file Legal Sex Male 3:42 AM SHUTTLE REPAIRER Gender Identity Not on file Sexual Orientation Straight 06/12/2023 11 :43 PM SHUTTLE REPAIRER documented as of this encounter Plan of Treatment Not on file documented as of this encounter Procedures Procedure Name Priority Date/Time Associated Diagnosis Comments US VEIN DUPLEX LOWER EXTREMITY BILATERAL COMPLETE ED Urgent/IP Urgent 05/09/2023 11:23 AM SHUTTLE REPAIRER documented in this encounter Results * US Vein Duplex Lower Extremity Bilateral Complete (05/09/2023 11:23 AM SHUTTLE REPAIRER) Anatomical Region Laterality Modality Vascular Bilateral Ultrasound 05/09/2023 9:31 AM SHUTTLE REPAIRER Narrative 05/09/2023 9:07 PM SHUTTLE REPAIRER [facility] - Department of Vascular Surgery, Vascular Laboratory [address] [place] [address] Lower Extremity Venous Ultrasound Report Patient Name: AYDEE BANGURA : 1990 (32y 11m) Study Date: 05/09/2023 9:31:37 AM Gender: M Tech: NV Location: [id number] Ref Provider: FAUSTINO MANZANO ?Quality: Adequate Order [...] and fever r/o DVT - FINDINGS: Performing Senior Applications Architect: Cheryle Soliz RVT, RDMS. Bilateral: Venous Doppler [...] above. Electronically Signed By: Pepe Gardner MD [facility] 2023-05-09 21:07:13 SHUTTLE REPAIRER Procedure Note Pepe Gardner MD - 05/09/2023 [facility] - Department of Vascular Surgery,Vascular Laboratory [address] [place] [address] Lower Extremity Venous Ultrasound Report Patient Name: AYDEE BANGURA : 1990 (32y 11m) Study Date: 05/09/2023 9:31:37 AM Gender: M Tech: NV Location: [place] [id number] Ref Provider: FAUSTINO MANZANO Quality: Adequate Order Provider: FAUSTINO MANZANO PROCEDURES: Vascular Report: Venous Duplex imaging was performed bilaterally in the lower extremities.The common femoral, femoral, popliteal, posterior tibial, peroneal veins wereevaluated for patency, spontaneity and phasicity with Doppler, compression and augmentationmaneuvers. Great saphenous vein proximal at the junction was evaluated with compressionmaneuvers. INDICATIONS: post-op pain and fever r/o DVT - FINDINGS: Performing Senior Applications Architect: Cheryle Soliz RVT, RDMS. Bilateral: Venous Doppler [...] above. Electronically Signed By: Pepe Gardner MD [facility] 2023-05-09 21:07:13 SHUTTLE REPAIRER Faustino Manzano MD [facility] PROCEDURES Final Re sult documented in this encounter Visit Diagnoses Not on filedocumented in this encounter Care Teams Cordwood Cutter Helper Relationship Specialty Start Date End Date Unknown, Notinfile PCP - General 04/30/23 06/05/23 documented as of this encounter
--- OUTSIDE RECORDS SUMMARY | 2024-05-30 06:32 | XMS_ITS | Encounter Summary ---
Author Organization [facility] Address [address] [place] [address] Phone Care Team Providers Care Social Media Strategist Name Role Phone Unknown, Notinfile Primary Care Provider Unavail able Reason for Referral * MRI/CAT/PET Scan (Routine) - Closed Specialty Diagnoses / Procedures Referred By Contac t Referred To Contact Radiology Diagnoses Dissection of thoracoabdominal aorta (CMS/HCC) (HCC) Procedures CTA Chest Abdomen Pelvis Leo Manzano MD [address] [facility] [address] [place] [address] Phone: tel: fax: [facility] [phone] Alicia Yanes [place] [phone] Referral ID Status Reason Start Date Expiration Date Visits Re quested Visits Authorized [id number] Closed 01/27/2024 03/27/2024 1 1 SER HAND Encounter Details Date Type Department Care Team (Late st Contact Info) Description 05/05/2023 Orders Only [facility] Vascular Surgery [facility] Medical Office Building [address] [place] [phone] Leo Manzano MD [address] [facility] [address] [place] [address] Dissection of aorta, unspecified portion of aorta (HCC) (Primary Dx); Dissection of thoracoabdominal aorta (CMS/HCC) (HCC) Social History Tobacco Use Types Packs/Day Years Used Date Smoking Tobacco: Never Smokeless Tobacco: Never Sex and Gender Information Value Date Recorded Sex Assigned at Not on file Legal Sex Male 3:42 AM PRESSER HAND Gender Identity Not on file Sexual Orientation Straight 06/12/2023 11 :43 PM PRESSER HAND documented as of this encounter Plan of [...] (HCC) documented in this encounter Care Teams Social Media Strategist Relationship Specialty Start Date End Date Unknown, Notinfile PCP - General 04/30/23 06/05/23 documented as of this encounter
--- OUTSIDE RECORDS SUMMARY | 2024-05-30 06:32 | XMS_ITS | Encounter Summary ---
Author Organization [facility] Address [address] [place] [address] Phone Care Team Providers Care Room Service Bellhop Name Role Phone Unknown, Notinfile Primary Care Provider Unavail able Leo Manzano MD Unavailable [phone] Carl Strickland MD Primary Care Provider Reason for Visit * Reason Onset Date Comments Inpt Consult 05/09/2023 Encounter Details Date Type Department Care Team (Late st Contact Info) Description 05/09/2023 Telephone [facility] [address] [facility] [address] [place] [address] [place] [address] Joaquín Abarca MD [address] [facility] [address] [place] [address] Inpt Consult Social History Tobacco Use Types Packs/Day Years Used Date Smoking Tobacco: Never Smokeless Tobacco: Never [facility] Utilities Answer Date Recorded In the past 12 months has [employer], gas, oil, or water company threatened to [...] often do you attend chur ch or restorationism services? More than 4 times per year 06/08/2023 Do you belong to any clubs o r organizations such as zoroastrianism groups, unions, fraternal or athletic groups, or [...] or slept in a mcc (including now)? No 06/08/2023 Personal Safety Answer Date Recorded Getting School Help Needed Denies 05/09 Sex and Gender Information Value Date Recorded Sex Assigned at Not on file Legal Sex Male 3:42 AM HANDLE BAR ASSEMBLER Gender Identity Not on file Sexual Orientation Straight 06/12/2023 11 :43 PM HANDLE BAR ASSEMBLER documented as of this encounter Miscellaneous Notes [...] day, but would inform him of request. LE BAR ASSEMBLER * Telephone Encounter - Elisabeth Eid - 05/09/2023 12:21 PM CST [facility] ICU, (Call Resident Vj) Would like to speak to someone regarding this consult that was assigned to Rima. LE BAR ASSEMBLER documented in this encounter Plan of Treatment Not on file documented as of this encounter Visit Diagnoses Not on filedocumented in this encounter Care Teams Room Service Bellhop Relationship Specialty Start Date End Date Unknown, Notinfile PCP - General 04/30/23 06/05/23 Carl Strickland MD [address] [facility] [address] [place] [address] PCP - General Internal Medicine 06/06/23 Leo Manzano MD [address] [facility] [address] [place] [address] Surgeon Vascular Surgery 05/16/23 documented as of this encounter
--- OUTSIDE RECORDS SUMMARY | 2024-05-30 06:33 | XMS_ITS | Encounter Summary ---
Author Organization [facility] Healthcare Address [address] [place] [address] Care Team Providers Care Final Expense Agent Name Role Phone Unknown, Notinfile Primary Care [...] Expiration Date Visits Re quested Visits Authorized [id number] 1 1 Encounter Details Date Type Department Care Team (Late st Contact Info) Description 05/02/2023 4:27 PM JAVA SQL DEVELOPER Anesthesia Event [facility] Operating Room [address] [place] [address] Ney Alex MD [address] [facility] [place] [address] Donita [place] [address] [facility] [address] [place] [address] Anesthesia Record Procedure Summary Procedure Name Responsible [...] on file Legal Sex Male 3:42 AM JAVA SQL DEVELOPER Gender Identity Not on file Sexual Orientation Straight 06/12/2023 11 :43 PM JAVA SQL DEVELOPER documented as of this encounter OR Notes * Anesthesia Postprocedure Evaluation - Ney Alex MD - 05/02/2023 9:46 PM CST Patient: Eriberto Chau Procedure Summary Date: 05/02/23 Room / Location: LOCATED WITHIN [facility] OR POD 3 ROOM 314 / LOCATED WITHIN [facility] OR POD 3 Anesthesia Start: 1627 Anesthesia [...] nasal bleeding stopped. No notable events documented. SQL DEVELOPER SQL DEVELOPER * Anesthesia Procedure Notes - Emeka Barrow MD - 05/02/2023 5:09 PM CSTAssociated Order(s): Arterial Line Arterial Line Patient location: OR Indication: continuous blood pressure monitoring and blood sampling needed Staff: Placed by: CONTINUOUS PROCESS ROTARY DRUM TANNER: Jh Onofre CRNA Procedure prep: Prep solution: chlorhexadine/alcohol Prep: provider hat/mask and sterile gloves Arterial line: Catheter size: 3 Niuean Catheter length: 8 cm Catheter type: wire-guided catheter Seldinger technique: yes Laterality: right Site: radial artery Line secured: tape and Tegaderm Results: good waveform and good blood return Number of attempts: 1 Assessment: Events: patient tolerated procedure well with no complications SQL DEVELOPER * Anesthesia Procedure Notes - Emeka Barrow [...] of attempts: 1 Planned trial extubation: yes SQL DEVELOPER * Anesthesia Preprocedure Evaluation - Dalton Locke [...] Noted Dissection of thoracoabdominal aorta (CMS/HCC) ([facility]) 05/02/2023 Dissection of aorta, unspecified [...] mL (8 mg/mL) infusion (premix), 1 mg/kg/hr ([place]), intravenous, Continuous, Last Rate: 8.84 mL/hr at [...] Medication protocol when under care of a CONTINUOUS PROCESS ROTARY DRUM TANNER Planned anesthesia: General Team communication plan: oral ET tube Invasive Monitors Planned: Invasive monitors planned: RENA and arterial line. Induction: Induction: intravenous. Postoperative Plan: Postoperative administration opioids intended. No postoperative mechanical ventilation intended. Patient's planned disposition post procedure is ICU. Planned trial extubation. Informed Consent: Discussed plan with CONTINUOUS PROCESS ROTARY DRUM TANNER. Anesthesia plan and risks discussed with patient. Consent and Attending signature: I and/or my designee have discussed the anesthesia plan, benefits, possible alternatives, parental presence at time of induction (if indicated), and clinically relevant risks that may include dental injury, unintentional awareness, and/or other complications. The patient and/or parent/legal guardian understand, and agree to proceed. All questions answered. SQL DEVELOPER documented in this encounter Plan of Treatment Not on file documented as of this encounter Procedures Procedure Name Priority Date/Time Associated Diagnosis Comments ANESTHESIA ARTERIAL LINE PLACEMENT Routine 05/02/2023 5:09 PM JAVA SQL DEVELOPER ANESTHESIA INTUBATION Routine 05/02/2023 5:06 PM JAVA SQL DEVELOPER documented in this encounter Results * Arterial Line (05/02/2023 5:09 PM JAVA SQL DEVELOPER) Narrative Emeka Barrow MD - 05/02/2023 5:09 PM JAVA SQL DEVELOPER Emeka Barrow MD ? 05/02/2023 ??5:09 PM Arterial Line Patient location: OR Indication: continuous blood pressure monitoring and blood sampling needed Staff: Placed by: CONTINUOUS PROCESS ROTARY DRUM TANNER: Jh Onofre CRNA Procedure prep: Prep solution: chlorhexadine/alcohol Prep: provider hat/mask and sterile gloves Arterial line: Catheter size: 3 Niuean Catheter length: 8 cm Catheter type: wire-guided catheter Seldinger technique: yes Laterality: right Site: radial artery Line secured: tape and Tegaderm Results: good waveform and good blood return Number of attempts: 1 Assessment: Events: patient tolerated procedure well with no complications us Dalton Locke MD ANESTHESIA ORDERAB LES Final Result * Airway (05/02/2023 5:06 PM JAVA SQL DEVELOPER) Narrative Emeka Barrow MD - 05/02/2023 5:06 PM JAVA SQL DEVELOPER Emeka Barrow MD ? 05/02/2023 ??5:09 PM [...] 2045, Anesthesia Intra-op Given 05/02/2023 8:57 PM JAVA SQL DEVELOPER 4 puffs Given 05/02/2023 8:46 PM JAVA SQL DEVELOPER 8 puffs ceFAZolin (ANCEF) injection intravenous, Administer over 3 Minutes, As needed, Starting on Tue05/02/23 at 1655, Anesthesia Intra-op Given 05/02/2023 4:55 PM JAVA SQL DEVELOPER 2,000 mg clevidipine (CLEVIPREX) 50 mg/100 mL [...] hours., Routine Rate/Dose Verify 05/03/2023 5:00 PM JAVA SQL DEVELOPER 24 mg/hr 48 mL/hr New Bag 05/03/2023 4:58 PM JAVA SQL DEVELOPER 24 mg/hr 48 mL/hr Rate/Dose Verify 05/03/2023 4:00 PM JAVA SQL DEVELOPER 24 mg/hr 48 mL/h r diphenhydrAMINE (BENADRYL) 50 mg/mL injection intravenous, Administer over 2 Minutes, As needed, Starting on Tue05/02/23 at 2048, Anesthesia Intra-op Given 05/02/2023 8:48 PM JAVA SQL DEVELOPER 50 mg EPINEPHrine syringe (ADRENALIN) 0.1 mg/mL intravenous, As needed, Starting on Tue05/02/23 at 2047, Anesthesia Intra-op Given 05/02/2023 9:07 PM JAVA SQL DEVELOPER 20 mcg Given 05/02/2023 8:59 PM JAVA SQL DEVELOPER 10 mcg Given 05/02/2023 8:47 PM JAVA SQL DEVELOPER 10 mcg esmolol in 0.9% sodium chloride [...] 60-70, Routine Rate/Dose Verify 05/03/2023 10:00 PM JAVA SQL DEVELOPER 300 mcg/kg/min 187.7 mL/hr Rate/Dose Verify 05/03/2023 9:00 PM JAVA SQL DEVELOPER 300 mcg/kg/min 187 .7 mL/hr Rate/Dose Verify 05/03/2023 8:00 PM JAVA SQL DEVELOPER 300 mcg/kg/min 187 .7 mL/hr famotidine (PEPCID) injection intravenous, Administer over 2 Minutes, As needed, Starting on Tue05/02/23 at 2047, Anesthesia Intra-op Given 05/02/2023 8:47 PM JAVA SQL DEVELOPER 20 mg fentaNYL (SUBLIMAZE) preservative free injection intravenous, As needed, Starting on Tue05/02/23 at 1647, Anesthesia Intra-op Given 05/02/2023 4:47 PM JAVA SQL DEVELOPER 100 mcg heparin 1,000 unit/mL injection intravenous, As needed, Starting on Tue05/02/23 at 1808, Anesthesia Intra-op New Bag 05/02/2023 6:08 PM JAVA SQL DEVELOPER 11,000 Units Lactated Ringer's (LR) infusion intravenous, Continuous PRN, Starting on Tue05/02/23 at 1647, Anesthesia Intra-op New Bag 05/02/2023 6:21 PM JAVA SQL DEVELOPER New Bag 05/02/2023 4:47 PM JAVA SQL DEVELOPER Lactated Ringer's (LR) infusion intravenous, Continuous PRN, Starting on Tue05/02/23 at 1657, Anesthesia Intra-op New Bag 05/02/2023 4:57 PM JAVA SQL DEVELOPER lidocaine (cardiac) (XYLOCAINE) preservative free injection intravenous, As needed, Starting on Tue05/02/23 at 1647, Anesthesia Intra-op, Indications: Ventricular ArrhythmiasIndications:Ventri cular Arrhythmias Given 05/02/2023 4:47 PM JAVA SQL DEVELOPER 20 mg lidocaine in dextrose 5% 2 g/250 mL (8 mg/mL) infusion (premix) 1 mg/kg/hr ? 70.7 kg [place] weight (8.8375 mL/hr, rounded to 8.84 mL/hr), [...] 5., RoutineIndications:Pain Rate/Dose Verify 05/02/2023 4:27 PM JAVA SQL DEVELOPER 8.84 mL/hr New Bag 05/02/2023 1:06 PM JAVA SQL DEVELOPER 1 mg/kg/hr 8.84 mL/hr midazolam (VERSED) 2 mg/2 mL preservative free injection intravenous, Administer over 2 Minutes, As needed, Starting on Tue05/02/23 at 1647, Anesthesia Intra-op Given 05/02/2023 4:47 PM JAVA SQL DEVELOPER 2 mg niCARdipine (CARDENE) injection intravenous, As needed, Starting on Tue05/02/23 at 1822, Anesthesia Intra-op, Indications: hypertensionIndications:hypertension Given 05/02/2023 8:33 PM JAVA SQL DEVELOPER 500 mcg Given 05/02/2023 8:31 PM JAVA SQL DEVELOPER 500 mcg Given 05/02/2023 8:29 PM JAVA SQL DEVELOPER 200 mcg ondansetron (ZOFRAN) injection intravenous, Administer over 2 Minutes, As needed, Starting on Tue05/02/23 at 2025, Anesthesia Intra-op Given 05/02/2023 8:25 PM JAVA SQL DEVELOPER 4 mg phenylephrine (KARLI-SYNEPHRINE) 1 mg/10 mL (100 mcg/mL) in sodium chloride 0.9% (premix) intravenous, As needed, Starting on Tue05/02/23 at 1703, Anesthesia Intra-op Given 05/02/2023 5:03 PM JAVA SQL DEVELOPER 100 mcg phenylephrine (KARLI-SYNEPHRINE) 1 mg/10 mL (100 mcg/mL) in sodium chloride 0.9% (premix) intravenous, Continuous PRN, Starting on Tue05/02/23 at 1704, Anesthesia Intra-op Restarted 05/02/2023 7:00 PM JAVA SQL DEVELOPER 0.3 mcg/kg/min 19.35 mL/hr New Bag 05/02/2023 5:04 PM JAVA SQL DEVELOPER 0.5 mcg/kg/min 32.25 mL/ hr propofoL (DIPRIVAN) 10 mg/mL IV intravenous, As needed, Starting on Tue05/02/23 at 1647, Anesthesia Intra-op Given 05/02/2023 9:12 PM JAVA SQL DEVELOPER 100 mg Given 05/02/2023 8:55 PM JAVA SQL DEVELOPER 100 mg New Bag 05/02/2023 8:34 PM JAVA SQL DEVELOPER 50 mcg/kg/min 32.25 mL/h r protamine injection intravenous, As needed, Starting on Tue05/02/23 at 1912, Anesthesia Intra-op, Indications: Heparin ToxicityIndications:Heparin Toxicity Given 05/02/2023 7:12 PM JAVA SQL DEVELOPER 50 mg rocuronium (ZEMURON) injection intravenous, As needed, Starting on Tue05/02/23 at 1647, Anesthesia Intra-op Given 05/02/2023 7:06 PM JAVA SQL DEVELOPER 10 mg Given 05/02/2023 4:47 PM JAVA SQL DEVELOPER 100 mg sugammadex (BRIDION) 100 mg/mL intravenous solution intravenous, As needed, Starting on Tue05/02/23 at 2025, Anesthesia Intra-op Given 05/02/2023 8:25 PM JAVA SQL DEVELOPER 200 mg documented in this encounter Care Teams Final Expense Agent Relationship Specialty Start Date End Date Unknown, Notinfile PCP - General 04/30/23 06/05/23 documented as of this encounter
--- OUTSIDE RECORDS SUMMARY | 2024-05-30 06:33 | XMS_ITS | Encounter Summary ---
Author Organization [facility] Healthcare Address [address] [place] [address] Care Team Providers Care Thermodynamics Professor Name Role Phone Unknown, Notinfile Primary Care [...] Expiration Date Visits Re quested Visits Authorized [id number] 1 1 Encounter Details Date Type Department Care Team (Late st Contact Info) Description 05/02/2023 3:17 PM PULPWOOD CUTTER - 05/02/2023 7:52 PM PULPWOOD CUTTER Surgery [facility] Operating Room [address] [place] [address] Faustino Herrera MD [id number] [place] [address] THORACIC ENDOVASCULAR REPAIR - AORTIC Surgery Details [...] on file Legal Sex Male 3:42 AM PULPWOOD CUTTER Gender Identity Not on file Sexual Orientation Straight 06/12/2023 11 :43 PM PULPWOOD CUTTER documented as of this encounter Last Filed Vital Signs Vital Sign Reading Time Taken Comments Blood Pressure 106/54 05/02/2023 4:00 PM PULPWOOD CUTTER Pulse 75 05/02/2023 4:00 PM PULPWOOD CUTTER Temperature 36.9 ??C (98.4 ??F) 05/02/2023 4:00 PM CS T Respiratory Rate 13 05/02/2023 4:00 PM PULPWOOD CUTTER Oxygen Saturation 95% 05/02/2023 4:00 PM PULPWOOD CUTTER Inhaled Oxygen Concentration - - Weight 107.5 kg (236 lb 15.9 oz) 2022 10:29 AM PULPWOOD CUTTER Height 175.3 cm (5' 9 ) 05/01/2023 10:2 9 AM PULPWOOD CUTTER Body Mass Index 32.3 05/06/2023 2:31 AM PULPWOOD CUTTER documented in this encounter Discharge Summaries * Meron Parekh NP - 05/16/2023 10:56 AM CST Inpatient Discharge Summary BRIEF OVERVIEW Admitting Provider: Faustino Herrera MD Discharge Provider: Faustino Herrera MD Primary Care Physician at Discharge: Unknown, Notinfile None Admission Date: 05/01/2023 Discharge Date: 05/16/2023 Admission Location: [facility] Problems/Diagnoses: Principal Problem: Dissection of aorta, unspecified [...] around 1AM with symptoms and presented to [facility]. 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 BCT4 [facility] N CT [facility] Main IM 06/07/2023 3:30 PM Faustino Herrera MD VASC CAM 8B [facility] 06/21/2023 1:00 PM Lydia Barillas, HEARING HEALTH TECHNICIAN [facility] MOB1 [facility] Contact Information for Follow-ups [facility] (All Locations) Next Steps: Follow up Comments: Urinary retention when hospitalized, improved with flomax starting Questions: Please select the performing region: [facility] (All Locations) # of visits: 1 Referral Status: Pending Authorization Faustino Herrera MD Specialty: Vascular Surgery, General Surgery Relationship: Surgeon Libra CURRY [id number] [facility] [address] Next Steps: Follow up Comments: Follow up with established provider: [address] scan and office visit. Questions: To provider: FAUSTINO HERRERA Cosigned by Faustino Herrera MD at 05/16/2023 3:40 PM PULPWOOD CUTTER WOOD CUTTER WOOD CUTTER documented in this encounter Medications at Time [...] 05/16/2023 3:23 PM CST Fr Timmy Rosales [phone] 05/16/23 1500 Time Spent Start Time 1300 Stop Time 1310 Time Calculation (min) 10 min Patient Spiritual Assessment Spirituality Assessed Yes Nondenominational Affiliation Buddhism Active in Advent Yes Spiritual Needs Communion;Prayer Clinical Encounter Type Visited With Patient and family together Response Type Continuing visit Routine Visit Follow-up Continue Visiting Yes Sacramental Encounters Communion Patient wants communion Communion Given Indicator Yes Outcomes and Progress Aligning care with patient's values Achieved Preserve dignity and respect Achieved Demonstrating care and respect Achieved Interventions Interventions Active listening;Offer spiritual/mu-ism support;Prayer (Benediction) WOOD CUTTER * Meron Parekh NP - 05/16/2023 10:27 AM CST Vascular Surgery Daily Progress Patient Name/MRN: Eriberto Chau [id number] Treatment Team: Vascular Surgery Attending: Faustino Herrera MD Today's Date: 05/16/2023 Room/Bed: [place] [id number] Admit Date: 05/01/2023 Code Status: Full Code Subjective Chief complaint: abdominal pain Events During This Hospitalization: 32M PMH uncontrolled HTN (non-adherence) p/w acute CP, abd pain, and SOB x 6 hours. Woke up around 1AM with symptoms and presented to [facility]. 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 [...] tablet 50 mg 50 mg oral Nightly Meorn Parekh NP senna-docusate (PERICOLACE) 8.6-50 mg per [...] Faustino Herrera MD at 05/16/2023 11:24 AM PULPWOOD CUTTER WOOD CUTTER WOOD CUTTER * Timmy Rosales - 05/15/2023 4:39 PM CST Fr iTmmy Rosales [phone] 05/15/23 1600 Time Spent Start Time 1320 Stop Time 1330 Time Calculation (min) 10 min Patient Spiritual Assessment Spirituality Assessed Yes Nondenominational Affiliation Buddhism Active in Advent Yes Spiritual Needs Communion;Prayer Clinical Encounter Type Visited With Patient and family together Response Type Continuing visit Routine Visit Follow-up Continue Visiting Yes Sacramental Encounters Communion Patient wants communion Communion Given Indicator Yes Outcomes and Progress Aligning care with patient's values Achieved Preserve dignity and respect Achieved Demonstrating care and respect Achieved Interventions Interventions Active listening;Offer spiritual/mu-ism support;Prayer (Benediction) WOOD CUTTER * Sonia Clayton MD - 05/15/2023 7:39 AM CST Vascular Surgery Daily Progress Patient Name/MRN: Eriberto Chau [id number] Treatment Team: Vascular Surgery Attending: Faustino Herrera MD Today's Date: 05/15/2023 Room/Bed: [id number] Admit Date: 05/01/2023 Code Status: Full Code Subjective Chief complaint: abdominal pain Events During This Hospitalization: [place] 05/01 Sx TBAD 32M PMH uncontrolled HTN (non-adherence) p/w acute CP, abd pain, and SOB x 6 hours. Woke up around 1AM with symptoms and presented to [facility]. 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 [...] tablet 1,000 mg 1,000 mg oral Q6H [facility] Dustin Souza DO 1,000 mg at 05/15/23 [...] Dustin Souza, DO 2 spray at 05/14/23 0259 tamsulosin (FLOMAX) extended release capsule 0.4 mg [...] s/s bleeding Dissection of thoracoabdominal aorta (CMS/HCC) ([facility]) Assessment & Plan Patient presented on [...] Faustino Herrera MD at 05/16/2023 7:44 AM PULPWOOD CUTTER WOOD CUTTER WOOD CUTTER * Sonia Clayton MD - 05/14/2023 3:17 PM CST Vascular Surgery Daily Progress Patient Name/MRN: Eriberto Chau [id number] Treatment Team: Vascular Surgery Attending: Faustino Herrera MD Today's Date: 05/14/2023 Room/Bed: [id number] Admit Date: 05/01/2023 Code Status: Full Code Subjective Chief complaint: abdominal pain Events During This Hospitalization: [place] 05/01 Sx TBAD 32M PMH uncontrolled HTN (non-adherence) p/w acute CP, abd pain, and SOB x 6 hours. Woke up around 1AM with symptoms and presented to [facility]. 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 - Neurology following. - PT/OT. WOOD CUTTER * Kim Bello, PT - 05/13/2023 11:33 [...] treatment team and contact the PT or KILN CAR REPAIRER currently assigned to this patient. If a physical therapy clinician is not assigned to this patient, please call [phone]. 05/13/23 4422 PT Last Visit Session Type Treatment PT [...] independence with functional mobility. 05/10/23 05/20/23 -- WOOD CUTTER * Tegan Dye, OT - 05/13/2023 8:03 [...] not assigned to this patient, please call [phone]. 05/13/23 0803 General Session Type Treatment OT [...] Details: Pt will be independent in ADLS WOOD CUTTER * Flex Parsons MD - 05/13/2023 5:47 AM CST Vascular Surgery Daily Progress Patient Name/MRN: Eriberto Chau [id number] Treatment Team: Vascular Surgery- Pager: [phone] Attending: Faustino Herrera MD Today's Date: 05/13/2023 Room/Bed: [id number] Admit Date: 05/01/2023 Code Status: Full Code [...] the false lumen. He was transferred to [facility] for further evaluation and treatment. Here, [...] All feel these findings not to be event representative of a type a dissection, therefore [...] PT/OT - TTF Flex Parsons MD, MSc [phone] For patients or family members viewing this note through Telepath programs: This note was written as a [...] Faustino Herrera MD at 05/14/2023 4:44 PM PULPWOOD CUTTER WOOD CUTTER WOOD CUTTER * Nando Mijares MD - 05/13/2023 12:18 [...] oral, TID heparin, 5,000 Units, subcutaneous, Q8H [facility] lidocaine, 1 patch, transdermal, Daily polyethylene glycol, 17 g, oral, Daily QUEtiapine, 75 mg, oral, Nightly senna-docusate, 1 tablet, oral, BID sodium chloride, 2 spray, each nostril, Q2H while awake sodium chloride 0.9%, 0.5-20 mL, intra-catheter, Q8H [facility] tamsulosin, 0.4 mg, oral, Daily Continuous Infusions: [...] Dalton Locke MD at 05/13/2023 12:59 PM PULPWOOD CUTTER WOOD CUTTER WOOD CUTTER Associated attestation - Dalton Locke MD - 05/13/2023 12:59 PM PULPWOOD CUTTER Attending Documentation: I have seen and examined this critically ill patient on the day of service. I have reviewed and confirmed the history, physical exam, laboratory and radiologic data with the house staff as documentedin the ICU Resident note. I have reviewed and discussed my treatment plan with the ICU team and other medical/applications sales consultant staff, making frequent assessments and [...] transfer to floor today. Silverio Locke MD Panelbeater Department of Anesthesiology * Timmy Rosales - 05/12/2023 6:43 PM CST Fr Timmy Rosales [phone] 05/12/23 1800 Time Spent Start Time 1740 Stop Time 1750 Time Calculation (min) 10 min Patient Spiritual Assessment Spirituality Assessed Yes Nondenominational Affiliation Buddhism Active in Advent Yes Spiritual Needs Communion;Prayer Clinical Encounter Type Visited With Patient and family together Response Type Continuing visit Routine Visit Follow-up Continue Visiting Yes Reason for visit Sacramental;Support Sacramental Encounters Communion Patient wants communion Communion Given Indicator Yes Outcomes and Progress Aligning care with patient's values Achieved Preserve dignity and respect Achieved Demonstrating care and respect Achieved Interventions Interventions Active listening;Offer emotional support;Offer spiritual/mu-ism support;Prayer (Benediction) WOOD CUTTER * Kim Bello, PT - 05/12/2023 9:06 [...] treatment team and contact the PT or KILN CAR REPAIRER currently assigned to this patient. If a physical therapy clinician is not assigned to this patient, please call [phone]. 05/12/23 0906 PT Last Visit Session Type [...] independence with functional mobility. 05/10/23 05/20/23 -- WOOD CUTTER * Flex Parsons MD - 05/12/2023 5:46 AM CST Vascular Surgery Daily Progress Patient Name/MRN: Eriberto Chau [id number] Treatment Team: Vascular Surgery- Pager: [phone] Attending: Faustino Herrera MD Today's Date: 05/12/2023 Room/Bed: [id number] Admit Date: 05/01/2023 Code Status: Full Code [...] the false lumen. He was transferred to [facility] for further evaluation and treatment. Here, [...] All feel these findings not to be event representative of a type a dissection, therefore [...] PT/OT - TTOU Flex Parsons MD, MSc [phone] For patients or family members viewing this note through Telepath programs: This note was written as a [...] Faustino Herrera MD at 05/12/2023 1:18 PM PULPWOOD CUTTER WOOD CUTTER WOOD CUTTER * ToMeron MD - 05/12/2023 1:07 AM [...] oral, TID heparin, 5,000 Units, subcutaneous, Q8H [facility] lidocaine, 1 patch, transdermal, Daily polyethylene glycol, 17 g, oral, Daily QUEtiapine, 50 mg, oral, Daily QUEtiapine, 75 mg, oral, Nightly senna-docusate, 1 tablet, oral, BID sodium chloride, 2 spray, each nostril, Q2H while awake sodium chloride 0.9%, 0.5-20 mL, intra-catheter, Q8H [facility] tamsulosin, 0.4 mg, oral, Daily Continuous Infusions:Lactated [...] Dalton Locke MD at 05/12/2023 3:44 PM PULPWOOD CUTTER WOOD CUTTER WOOD CUTTER Associated attestation - Dalton Locke MD - 05/12/2023 3:44 PM PULPWOOD CUTTER Attending Documentation: I have seen and examined this critically ill patient on the day of service. I have reviewed and confirmed the history, physical exam, laboratory and radiologic data with the house staff as documentedin the ICU Resident note. I have reviewed and discussed my treatment plan with the ICU team and other medical/applications sales consultant staff, making frequent assessments and [...] Q2h neurovascular checks TTOU Silverio Locke MD [facility]beater Department of Anesthesiology * Timmy Rosales - 2023 6:24 PM CST Fr Timmy Rosales [phone] 05/11/23 1800 Time Spent Start Time 1740 Stop Time 1750 Time Calculation (min) 10 min Patient Spiritual Assessment Spirituality Assessed Yes Nondenominational Affiliation Buddhism Active in Advent Yes Spiritual Needs Communion;Prayer Clinical Encounter Type Visited With Patient and family together Response Type Continuing visit Routine Visit Follow-up Continue Visiting Yes Reason for visit Sacramental;Support Sacramental Encounters Communion Patient wants communion Communion Given Indicator Yes Outcomes and Progress Aligning care with patient's values Achieved Preserve dignity and respect Achieved Demonstrating care and respect Achieved Interventions Interventions Active listening;Offer spiritual/mu-ism support;Prayer (Benediction) WOOD CUTTER * Nigel Mcgraw MD - 2023 5:50 PM CST Neurosurgery follow-up note: This patient was seen by the Neurosurgery team for concern for cord infarct, which was managed witha lumbar drain placed by QUENTNI . This patient was staffed with Dr. Smith, who reviewed the patient's history and imaging. The LD was removed on 05/10. The pt does not require further f/u with [facility]. If there are further questions or concerns regarding this patient, please page the Neurosurgery call pager at [phone], and request the resident caring for Dr. Smith's patients. 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 Type of Weight Used for Estimated Kcals: Current Total Protein Estimated Needs (gm): 101.64 Protein Needs Based on g/k.4 Type of Weight Used forEstimated Protein : [place] Total Fluid Estimated Needs: 1815 Fluid Needs Based on : 25 ml/kg Type of Weight Used for EstimatedFluid Needs: [place] Dietary Orders (From admission, onward) Start Ordered 05/07/23 1502 Adult Diet Regular Diet effective now Question: ([facility]) Diet type Answer: Regular 05/07/23 1501 [...] interview INTERVENTION(S): Summary: Assess for nutrition changes, [place] diet preferences within the limits of nutrition [...] patterns, Weight changes Darren Busby MS, RD, [facility], N [phone] Content Engineer-Weekend: [phone] WOOD CUTTER * Flex Parsons MD - 2023 10:01 AM CST Vascular Surgery Daily Progress Patient Name/MRN: Eriberto Chau [id number] Treatment Team: Vascular Surgery- Pager: [phone] Attending: Faustino Herrera MD Today's Date: 2023 Room/Bed: [place] [id number] Admit Date: 05/01/2023 Code Status: Full Code [...] Dissection of aorta, unspecified portion of aorta ([facility]) Current Assessment & Plan 32y/o male with uncontrolled HTN who presented to an OSH ER with acute onset shortness of breath, chest pain and back pain. 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 He was transferred to [facility] for further evaluation and treatment. Here, [...] All feel these findings not to be event representative of a type a dissection, therefore [...] line (Completed) Dissection of thoracoabdominal aorta (CMS/HCC) ([facility]) Relevant Orders CV Hybrid Room (Default [...] of chest/abdomen/pelvis today Flex Parsons MD, MSc [phone] For patients or family members viewing this note through Telepath programs: This note was written as a [...] Faustino Herrera MD at 2023 12:24 PM PULPWOOD CUTTER WOOD CUTTER WOOD CUTTER * Pb Elizabeth, PT - 2023 9:59 [...] treatment team and contact the PT or KILN CAR REPAIRER currently assigned to this patient. If a physical therapy clinician is not assigned to this patient, please call [phone]. 05/11/23 0948 PT Last Visit Session Type Treatment PT [...] Static Standing-Balance Support Bilateral upper extremity supported (PHOSPHATIC FERTILIZER SUPERVISOR) Static Standing-Standing Surface Floor Static Standing-Level of Assistance Minimum assistance;Moderate assistance (varying between min-mod A with R knee buckling and R lateral LOB) Static Standing-Comment/# of Minutes assist for safety/balance, R knee buckling and R lateral LOB. cueing for weight shifting. Dynamic Standing Balance Dynamic Standing-Balance Support Bilateral upper extremity supported (PHOSPHATIC FERTILIZER SUPERVISOR) Dynamic Standing-Standing Surface Floor Dynamic Standing-Level of [...] independence with functional mobility. 05/10/23 05/20/23 -- WOOD CUTTER * Jonathan Mccoy - 2023 6:02 AM CST Spiritual Care Jonathan Mccoy 05/11/23 [phone] 05/11/23 0600 Time Spent Start Time 0540 Stop Time 0553 Time Calculation (min) 13 min Patient Spiritual Assessment Spirituality Assessed Yes Nondenominational Affiliation Buddhism Active in Advent Yes Spiritual Needs Prayer Clinical Encounter Type Visited With Patient Response Type Continuing visit Routine Visit Follow-up Reason for visit Support Outcomes and Progress Aligning care with patient's values Achieved Preserve dignity and respect Achieved Demonstrating care and respect Achieved Hansa affirmation Achieved Establish rapport and connectedness Achieved Sense of peace Achieved Interventions Interventions Active listening;Explore hansa and values;Offer emotional support;Offer spiritual/mu-ism support;Prayer 05/11/23 0600 Time Spent Start Time 0540 Stop Time 0553 Time Calculation (min) 13 min Patient Spiritual Assessment Spirituality Assessed Yes Nondenominational Affiliation Buddhism Active in Advent Yes Spiritual Needs Prayer Clinical Encounter Type Visited With Patient Response Type Continuing visit Routine Visit Follow-up Reason for visit Support Outcomes and Progress Aligning care with patient's values Achieved Preserve dignity and respect Achieved Demonstrating care and respect Achieved Hansa affirmation Achieved Establish rapport and connectedness Achieved Sense of peace Achieved Interventions Interventions Active listening;Explore hansa and values;Offer emotional support;Offer spiritual/mu-ism support;Prayer WOOD CUTTER * ToMeron MD - 2023 1:37 AM [...] FBG -1-2L, lasix 40 BID - Dulcolax DE - Repeat cultures - sBP <140-180 05/10 [...] Rate: 10 mL/hr (05/11/23199) lidocaine, 1 mg/kg/hr ([place]), Last Rate: 1 mg/kg/hr (05/11/23199) niCARdipine, 0-2.5 [...] IJ Quad lumen, PIVx3, R radial a-line, nAni Mendoza MD Anesthesiology PGY-1 Cosigned by Dalton Locke MD at 05/12/2023 3:40 PM PULPWOOD CUTTER WOOD CUTTER WOOD CUTTER Associated attestation - Dalton Locke MD - 05/12/2023 3:40 PM PULPWOOD CUTTER Attending Documentation: I have seen and examined this critically ill patient on the day of service. I have reviewed and confirmed the history, physical exam, laboratory and radiologic data with the house staff as documentedin the ICU Resident note. I have reviewed and discussed my treatment plan with the ICU team and other medical/applications sales consultant staff, making frequent assessments and [...] a fluid balance goal. Silverio Locke MD [facility] Department of Anesthesiology * Timmy Rosales - 05/10/2023 3:57 PM CST Fr Timmy Rosales [phone] 05/10/23 1500 Time Spent Start Time 1330 Stop Time 1340 Time Calculation (min) 10 min Patient Spiritual Assessment Spirituality Assessed Yes Nondenominational Affiliation Buddhism Active in Advent Yes Spiritual Needs Communion;Prayer Clinical Encounter Type Visited With Patient and family together Response Type Continuing visit Routine Visit Follow-up Continue Visiting Yes Reason for visit Sacramental;Support Sacramental Encounters Communion Patient wants communion Communion Given Indicator Yes Outcomes and Progress Aligning care with patient's values Achieved Preserve dignity and respect Achieved Demonstrating care and respect Achieved Interventions Interventions Active listening;Prayer;Offer spiritual/mu-ism support (Benediction) WOOD CUTTER * Kim Bello, PT - 05/10/2023 11:40 [...] goal Prior Function Prior Function Level of Erlanger: Independent with ADLs, Independent functional transfers, Independent with ambulation Lives With: Spouse, Family Receives Help From: Spouse/Significant other, Family (real time trader assist available) Fall within the last 6 [...] independence with functional mobility. 05/10/23 05/20/23 -- WOOD CUTTER * Lisa Landa MD - 05/10/2023 10:01 AM CST Neurosurgery Brief note: Lumbar drain Removal Patient with lumbar drain. Decision made to discontinue lumbar drain. Drain removed. Site closed with single interrupted stitch using 3-0 monocryl suture. Patient tolerated the procedure well. No CSFleak noted after procedure. Drain tip intact. - monitor for drainage from drain site - please page NSGY pager environmental technician if any concerns ([phone]) Lisa Landa MD WOOD CUTTER * Flex Parsons MD - 05/10/2023 8:13 AM CST Vascular Surgery Daily Progress Patient Name/MRN: Eriberto Chau [id number] Treatment Team: Vascular Surgery- Pager: [phone] Attending: Faustino Herrera MD Today's Date: 05/10/2023 Room/Bed: [place] [id number] Admit Date: 05/01/2023 Code Status: Full Code [...] the false lumen. He was transferred to [facility] for further evaluation and treatment. Here, [...] All feel these findings not to be event representative of a type a dissection, therefore [...] can remove today Flex Parsons MD, MSc [phone] For patients or family members viewing this note through [employer] programs: This note was written as a [...] Faustino Herrera MD at 2023 12:23 PM PULPWOOD CUTTER WOOD CUTTER WOOD CUTTER * Lisa Landa MD - 05/10/2023 6:11 [...] discontinue today. Responsible Team Lisa Landa MD (Hydroelectric Powerplant Supervisor) Phylicia Arshad MD PhD (Perez) Devyn Mcgraw MD (Senior) Jorge Rivers MD PhD (Chief) For any questions or concerns, please contact the nurse practitioner signed in to the chart. If youare unable to reach them, you may contact the residents as listed. If it is after 6pm or you are unable to reach the HEARING HEALTH TECHNICIAN or resident team, please page the Neurosurgery Call Pager at [phone]. Cosigned by Jaden Smith MD at 05/10/2023 9:12 PM PULPWOOD CUTTER WOOD CUTTER WOOD CUTTER WOOD CUTTER Associated attestation - Jaden Smith MD - 05/10/2023 9:12 PM PULPWOOD CUTTER I have seen and examined the patient [...] 10 mL/hr (05/10/23 0000) lidocaine, 1 mg/kg/hr ([place]), Last Rate: 1 mg/kg/hr (05/10/23 0100) niCARdipine, [...] Dalton Locke MD at 05/12/2023 3:28 PM PULPWOOD CUTTER WOOD CUTTER WOOD CUTTER Associated attestation - Dalton Locke MD - 05/12/2023 3:28 PM PULPWOOD CUTTER Attending Documentation: I have seen and examined this critically ill patient on the day of service. I have reviewed and confirmed the history, physical exam, laboratory and radiologic data with the house staff as documentedin the ICU Resident note. I have reviewed and discussed my treatment plan with the ICU team and other medical/applications sales consultant staff, making frequent assessments and [...] a fluid balance goal. Silverio Locke MD [facility] Department of Anesthesiology * Timmy Rosales - 05/09/2023 4:09 PM CST Fr Timmy Rosales [phone] 05/09/23 1600 Time Spent Start Time 1200 Stop Time 1210 Time Calculation (min) 10 min Patient Spiritual Assessment Spirituality Assessed Yes Nondenominational Affiliation Buddhism Active in Advent Yes Spiritual Needs Prayer Clinical Encounter Type Visited With Patient and family together Response Type Continuing visit Routine Visit Follow-up Continue Visiting Yes Reason for visit Sacramental;Support Outcomes and Progress Aligning care with patient's values Achieved Preserve dignity and respect Achieved Demonstrating care and respect Achieved Interventions Interventions Active listening;Offer spiritual/mu-ism support;Prayer (Benediction) WOOD CUTTER * Lisa Landa MD - 05/09/2023 7:31 [...] 2 hours. Responsible Team Lisa Landa MD (Hydroelectric Powerplant Supervisor) Phylicia Arshad MD PhD (Perez) Devyn Mcgraw MD (Senior) Jorge Rivers MD PhD (Chief) For any questions or concerns, please contact the nurse practitioner signed in to the chart. If youare unable to reach them, you may contact the residents as listed. If it is after 6pm or you are unable to reach the HEARING HEALTH TECHNICIAN or resident team, please page the Neurosurgery Call Pager at [phone]. Cosigned by Jaden Smith MD at 05/10/2023 10:06 AM PULPWOOD CUTTER WOOD CUTTER WOOD CUTTER Associated attestation - Jaden Smith MD - 05/10/2023 10:06 AM PULPWOOD CUTTER I have seen and examined the patient on 05/09/2023. I agree with the findings and plan of care as documented in the resident's/fellow's note. * Flex Parsons MD - 05/09/2023 7:19 AM CST Vascular Surgery Daily Progress Patient Name/MRN: Eriberto Chau [id number] Treatment Team: Vascular Surgery- Pager: [phone] Attending: Faustino Herrera MD Today's Date: 05/09/2023 Room/Bed: [id number] Admit Date: 05/01/2023 Code Status: Full Code [...] the false lumen. He was transferred to [facility] for further evaluation and treatment. Here, [...] All feel these findings not to be event representative of a type a dissection, therefore [...] can clamp today Flex Parsons MD, MSc [phone] For patients or family members viewing this note through Telepath programs: This note was written as a [...] Faustino Herrera MD at 05/09/2023 3:51 PM PULPWOOD CUTTER WOOD CUTTER WOOD CUTTER Associated attestation - Faustino Herrera MD - 05/09/2023 3:51 PM PULPWOOD CUTTER I have seen and examined the patient [...] 10 mL/hr (05/09/23 0100) lidocaine, 1 mg/kg/hr ([place]), Last Rate: 1 mg/kg/hr (05/09/23 0158) norepinephrine, [...] Dalton Locke MD at 05/12/2023 3:17 PM PULPWOOD CUTTER WOOD CUTTER WOOD CUTTER Associated attestation - Dalton Locke MD - 05/12/2023 3:17 PM PULPWOOD CUTTER Attending Documentation: I have seen and examined this critically ill patient on the day of service. I have reviewed and confirmed the history, physical exam, laboratory and radiologic data with the house staff as documentedin the ICU Resident note. I have reviewed and discussed my treatment plan with the ICU team and other medical/applications sales consultant staff, making frequent assessments and [...] small subdural blood collection. Silverio Locke MD [employer] Department of Anesthesiology * Franci Marin, PT - 05/08/2023 2:21 PM CST Physical Therapy 05/08/23 1421 General PT Missed Visit Reason Bedrest WOOD CUTTER * Timmy Rosales - 05/08/2023 1:50 PM CST Fr Timmy Rosales [phone] 05/08/23 1300 Time Spent Start Time 1320 Stop Time 1330 Time Calculation (min) 10 min Patient Spiritual Assessment Spirituality Assessed Yes Nondenominational Affiliation Buddhism Active in Advent Yes Spiritual Needs Communion;Prayer Clinical Encounter Type Visited With Patient and family together Response Type Continuing visit Routine Visit Follow-up Continue Visiting Yes Reason for visit Sacramental;Support Sacramental Encounters Communion Patient wants communion Communion Given Indicator Yes Outcomes and Progress Aligning care with patient's values Achieved Preserve dignity and respect Achieved Demonstrating care and respect Achieved Interventions Interventions Active listening;Offer spiritual/mu-ism support;Prayer (Benediction) WOOD CUTTER * Flex Parsons MD - 05/08/2023 6:06 AM CST Vascular Surgery Daily Progress Patient Name/MRN: Eriberto Chau [id number] Treatment Team: Vascular Surgery- Pager: [phone] Attending: Faustino Herrera MD Today's Date: 05/08/2023 Room/Bed: [id number] Admit Date: 05/01/2023 Code Status: Full Code [...] the false lumen. He was transferred to [facility] for further evaluation and treatment. Here, [...] All feel these findings not to be event representative of a type a dissection, therefore [...] consider clamping tomorrow Flex Parsons MD, MSc [phone] For patients or family members viewing this note through Telepath programs: This note was written as a [...] Faustino Herrera MD at 05/09/2023 7:14 AM PULPWOOD CUTTER WOOD CUTTER WOOD CUTTER * Dustin Souza, DO - 05/08/2023 12:09 [...] Rate: Stopped (05/07/23 1100) lidocaine, 1.5 mg/kg/hr ([place]), Last Rate: 1.5 mg/kg/hr (05/08/2399) norepinephrine, 0-2 [...] Dalton Locke MD at 05/08/2023 2:08 PM PULPWOOD CUTTER WOOD CUTTER WOOD CUTTER Associated attestation - Dalton Locke MD - 05/08/2023 2:08 PM PULPWOOD CUTTER Attending Documentation: I have seen and examined this critically ill patient on the day of service. I have reviewed and confirmed the history, physical exam, laboratory and radiologic data with the house staff as documentedin the ICU Resident note. I have reviewed and discussed my treatment plan with the ICU team and other medical/applications sales consultant staff, making frequent assessments and [...] small subdural blood collection. Silverio Locke MD [employer] Department of Anesthesiology * Tamiko Miles MD PhD - 05/07/2023 8:54 AM CST Patient seen on 05/07/2023 during rounds. Plan for care was discussed and documented by the team based on discussion between team and primary attending. I am available for any urgent or emergent issues today. Tamiko Miles MD, PhD 05/07/2023 8:54 AM WOOD CUTTER * Flex Parsons MD - 05/07/2023 8:35 AM CST Vascular Surgery Daily Progress Patient Name/MRN: Eriberto Chau [id number] Treatment Team: Vascular Surgery- Pager: [phone] Attending: Faustino Herrera MD Today's Date: 05/07/2023 Room/Bed: [id number] Admit Date: 05/01/2023 Code Status: Full Code [...] the false lumen. He was transferred to [facility] for further evaluation and treatment. Here, [...] All feel these findings not to be event representative of a type a dissection, therefore [...] (Dr Abarca) consult Flex Parsons MD, MSc [phone] For patients or family members viewing this note through Telepath programs: This note was written as a [...] Faustino Herrera MD at 05/09/2023 7:14 AM PULPWOOD CUTTER WOOD CUTTER WOOD CUTTER * Phylicia Arshad MD - 05/07/2023 7:40 [...] or you are unable to reach the HEARING HEALTH TECHNICIAN or resident team, please page the Neurosurgery Call Pager at [phone]. Cosigned by Jaden Smith MD at 05/07/2023 10:05 PM PULPWOOD CUTTER WOOD CUTTER WOOD CUTTER WOOD CUTTER Associated attestation - Jaden Smith MD - 05/07/2023 10:05 PM PULPWOOD CUTTER I have seen and examined the patient [...] Dalton Locke MD at 05/08/2023 2:06 PM PULPWOOD CUTTER WOOD CUTTER WOOD CUTTER Associated attestation - Dalton Locke MD - 05/08/2023 2:06 PM PULPWOOD CUTTER Attending Documentation: I have seen and examined this critically ill patient on the day of service. I have reviewed and confirmed the history, physical exam, laboratory and radiologic data with the house staff as documentedin the ICU Resident note. I have reviewed and discussed my treatment plan with the ICU team and other medical/applications sales consultant staff, making frequent assessments and [...] small subdural blood collection. 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 Type of Weight Used for Estimated Kcals: Current Total Protein Estimated Needs (gm): 101.64 Protein Needs Based on g/k.4 Type of Weight Used forEstimated Protein : [place] Total Fluid Estimated Needs: 1815 Fluid Needs Based on : 25 ml/kg Type of Weight Used for EstimatedFluid Needs: [place] Allergies: Reviewed, NKFA IMPRESSION: RD follow-up on [...] interview INTERVENTION(S): Summary: Assess for nutrition changes, [place] diet preferences within the limits of nutrition [...] patterns, Weight changes Darren Busby MS, RD, [facility], N [phone] Content Engineer-Weekend: [phone] WOOD CUTTER * Flex Parsons MD - 05/06/2023 6:45 AM CST Vascular Surgery Daily Progress Patient Name/MRN: Eriberto Chau [id number] Treatment Team: Vascular Surgery- Pager: [phone] Attending: Faustino Herrera MD Today's Date: 05/06/2023 Room/Bed: [id number] Admit Date: 05/01/2023 Code Status: Full Code [...] PM Result Value Ref Range Product code P5790A71 Unit Number [id number] Product Blood Type APOS Dispense Status PRESUMED TRANSFUSED Protime-INR Collection Time: 05/05/23 8:14 PM Result Value Ref Range PT 16.9 (H) 10.3 - 13.7 sec INR 1.48 (H) 0.90 - 1.20 aPTT Collection Time: 05/05/23 8:14 PM Result Value Ref Range aPTT 35 28 - 38 sec Prepare platelets: 2 Units Collection Time: 05/05/23 8:17 PM Result Value Ref Range Product code Y4262R27 Unit Number [id number] Product Blood Type APOS Dispense Status ISSUED [...] the false lumen. He was transferred to [facility] for further evaluation and treatment. Here, [...] All feel these findings not to be event representative of a type a dissection, therefore [...] urgent from our perspective as it won't military exchange wireless manager, lumbar drain, f/u NSGY - cardiology (Dr Abarca) consult Flex Parsons MD, MSc [phone] For patients or family members viewing this note through Telepath programs: This note was written as a [...] Faustino Herrera MD at 05/06/2023 12:25 PM PULPWOOD CUTTER WOOD CUTTER WOOD CUTTER Associated attestation - Faustino Herrera MD - 05/06/2023 12:25 PM PULPWOOD CUTTER I have seen and examined the patient [...] Gus Busby MD at 05/06/2023 11:13 AM PULPWOOD CUTTER WOOD CUTTER WOOD CUTTER WOOD CUTTER * Carlos Alberto Nix MD PhD - [...] VerifyNow No results found for: SALICYLATE , [id number] CXR: reviewed EKG: reviewed Patient NPO?: N/A [...] to proceed. Carlos Alberto Nix MD PhD WOOD CUTTER * Timmy Rosales - 05/05/2023 4:35 PM CST Fr Timmy Reyessaad [phone] 05/05/23 1600 Time Spent Start Time 1510 Stop Time 1520 Time Calculation (min) 10 min Patient Spiritual Assessment Spirituality Assessed Yes Nondenominational Affiliation Buddhism Active in Advent Yes Spiritual Needs Prayer Clinical Encounter Type Visited With Patient and family together Response Type Continuing visit Routine Visit Follow-up Continue Visiting Yes Reason for visit Sacramental;Support Outcomes and Progress Aligning care with patient's values Achieved Preserve dignity and respect Achieved Demonstrating care and respect Achieved Interventions Interventions Active listening;Offer spiritual/mu-ism support;Prayer (Benediction) WOOD CUTTER * Cleveland Hawley MD - 05/05/2023 2:45 [...] In: 3480.6 [I.V.:2030.6; NG/GT:510; IV Piggyback:940] Out: 96196 [Urine:38622] Net IO Since Admission: 4,855.66 mL [05/05/23 [...] more epistaxis and packing should dissolve - [place] nasal spray q2h scheduled while awake - Wolverine gel (sodium chloride - aloe vera) for [...] Head & Neck Surgery QUESTIONS: Weekdays daytime: [facility] Otolaryngology [facility] Consult New consults, after-hours & weekends: [facility] Otolaryngology [facility] Resident Primary/Night Float ENT scheduling line: [phone] (please include in discharge paperwork as needed) Cosigned by Kaylie Saldana MD at 05/05/2023 8:56 PM PULPWOOD CUTTER WOOD CUTTER WOOD CUTTER * Flex Parsons MD - 05/05/2023 11:15 AM CST Vascular Surgery Daily Progress Patient Name/MRN: Eriberto Chau [id number] Treatment Team: Vascular Surgery- Pager: [phone] Attending: Faustino Herrera MD Today's Date: 05/05/2023 Room/Bed: [id number] Admit Date: 05/01/2023 Code Status: Full Code [...] In: 3480.6 [I.V.:2030.6; NG/GT:510; IV Piggyback:940] Out: 50587 [Urine:06597] I/O this shift: In: 42.5 [I.V.:32.5; NG/GT:10] [...] Active Problems: Dissection of thoracoabdominal aorta (CMS/HCC) ([facility]) Problem List Cardiac and Vasculature * [...] the false lumen. He was transferred to [facility] for further evaluation and treatment. Here, [...] All feel these findings not to be event representative of a type a dissection, therefore [...] Line (Completed) Dissection of thoracoabdominal aorta (CMS/HCC) ([facility]) Relevant Orders CV Hybrid Room (Default [...] (Dr Abarca) consult Flex Parsons MD, MSc [phone] For patients or family members viewing this note through Telepath programs: This note was written as a [...] Faustino Herrera MD at 05/05/2023 12:29 PM PULPWOOD CUTTER WOOD CUTTER WOOD CUTTER * Radha Wyatt VEGETABLE FARM WORKER - 05/05/2023 11:01 AM CST EXTUBATION Situation: Per MD/CYNTHIA order, the patient was extubated without incident, and resting on 40% aerosol face mask.No signs of respiratory distress noted at this time. Plan: Continue to monitor patients respiratory status and intervene as necessary. WOOD CUTTER * Mariel Pope OT - 05/05/2023 7:13 AM CST Occupational Therapy 05/05/23712 General OT Missed Visit Reason Sedated;Bedrest (intubated, sedated) WOOD CUTTER * Thea Rizzo MD - 05/05/2023 12:04 [...] Continuous Infusions:clevidipine, 0-32 mg/hr, Last Rate: Stopped (05/04/238) dexmedeTOMIDine, 0-1.5 mcg/kg/hr, Last Rate: 0.8 mcg/kg/hr [...] per 24 hour Intake 3937 ml Output 33126 ml Net -6438 ml Ventilator settings: Adult [...] Carline Jerome MD at 05/05/2023 1:23 PM PULPWOOD CUTTER WOOD CUTTER WOOD CUTTER Associated attestation - Carline Jerome MD - 05/05/2023 1:23 PM PULPWOOD CUTTER Attending Documentation: I have seen and examined this critically ill patient on the day of service. I have reviewed and confirmed the history, physical exam, laboratory and radiologic data with the house staff as documentedin the ICU Resident note. 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 Type of Weight Used for Estimated Kcals: Current Total Protein Estimated Needs (gm): 101.64 Protein Needs Based on g/k.4 Type of Weight Used forEstimated Protein : [place] Total Fluid Estimated Needs: 1815 Fluid Needs Based on : 25 ml/kg Type of Weight Used for EstimatedFluid Needs: [place] Dietary Orders (From admission, onward) Start Ordered [...] changes, Swallow function Darren Busby MS, RD, [facility], N [phone] Content Engineer-Weekend: [phone] WOOD CUTTER * Flex Parsons MD - 05/04/2023 7:30 AM CST Vascular Surgery Daily Progress Patient Name/MRN: Eriberto Chau [id number] Treatment Team: Vascular Surgery- Pager: [phone] Attending: Faustino Herrera MD Today's Date: 05/04/2023 Room/Bed: [id number] Admit Date: 05/01/2023 Code Status: Full Code [...] the false lumen. He was transferred to [facility] for further evaluation and treatment. Here, [...] All feel these findings not to be event representative of a type a dissection, therefore [...] consider respiratory panel Flex Parsons MD, MSc [phone] For patients or family members viewing this note through Telepath programs: This note was written as a [...] Faustino Herrera MD at 05/05/2023 12:29 PM PULPWOOD CUTTER WOOD CUTTER WOOD CUTTER * Thea Rizzo MD - 05/04/2023 12:01 [...] sodium chloride 0.9%, 0.5-20 mL, intra-catheter, Q8H [facility] Continuous Infusions:clevidipine, 0-32 mg/hr, Last Rate: [...] Carline Jerome MD at 05/04/2023 9:26 AM PULPWOOD CUTTER WOOD CUTTER WOOD CUTTER Associated attestation - Carline Jerome MD - 05/04/2023 9:26 AM PULPWOOD CUTTER Attending Documentation: I have seen and examined this critically ill patient on the day of service. I have reviewed and confirmed the history, physical exam, laboratory and radiologic data with the house staff as documentedin the ICU Resident note. I have reviewed and discussed my treatment plan with the ICU team and other medical/applications sales consultant staff, making frequent assessments and [...] far. Mild thrombocytopenia: no clinical concern. Cont [facility] for DVT prophylaxis. Carline Jerome MD * Timmy Rosales - 05/03/2023 3:56 PM CST Fr Timmy Rosales [phone] 05/03/23 1500 Time Spent Start Time 1210 Stop Time 1220 Time Calculation (min) 10 min Patient Spiritual Assessment Spirituality Assessed Yes Nondenominational Affiliation Buddhism Active in Advent Yes Spiritual Needs Prayer Clinical Encounter Type Visited With Patient and family together Response Type Continuing visit Routine Visit Follow-up Continue Visiting Yes Reason for visit Sacramental;Support Outcomes and Progress Aligning care with patient's values Achieved Preserve dignity and respect Achieved Demonstrating care and respect Achieved Interventions Interventions Active listening;Offer emotional support;Offer spiritual/mu-ism support;Prayer (Benediction) WOOD CUTTER * Flex Parsons MD - 05/03/2023 6:24 AM CST Vascular Surgery Daily Progress Patient Name/MRN: Eriberto Chau [id number] Treatment Team: Vascular Surgery- Pager: [phone] Attending: Alonzo Duncan MD Today's Date: 05/03/2023 Room/Bed: [id number] Admit Date: 05/01/2023 Code Status: Full Code [...] the false lumen. He was transferred to [facility] for further evaluation and treatment. Here, [...] All feel these findings not to be event representative of a type a dissection, therefore [...] support per ICU Flex Parsons MD, MSc [phone] For patients or family members viewing this note through Telepath programs: This note was written as a [...] Faustino Herrera MD at 05/03/2023 8:06 AM PULPWOOD CUTTER WOOD CUTTER WOOD CUTTER * Thea Rizzo MD - 05/03/2023 12:10 [...] Rate: 10 mL/hr (05/03/23) lidocaine, 1 mg/kg/hr ([place]), Last Rate: Stopped (05/02/23 1632) propofol, 0-50 [...] Carline Jerome MD at 05/03/2023 2:29 PM PULPWOOD CUTTER WOOD CUTTER WOOD CUTTER Associated attestation - Carline Jerome MD - 05/03/2023 2:29 PM PULPWOOD CUTTER Attending Documentation: I have seen and examined this critically ill patient on the day of service. I have reviewed and confirmed the history, physical exam, laboratory and radiologic data with the house staff as documentedin the ICU Resident note. I have reviewed and discussed my treatment plan with the ICU team and other medical/applications sales consultant staff, making frequent assessments and [...] MAR for full assessments and meds given WOOD CUTTER * Ann Goldstein MD - 05/02/2023 6:39 PM CST Vascular Surgery Daily Progress Patient Name/MRN: Eriberto Chau [id number] Attending: Alonzo Duncan MD Today's Date: 05/02/2023 [...] tablet 1,000 mg 1,000 mg oral Q6H [facility] Manuel Jarrett MD1,000 mg at 05/02/23 1225 [...] mL (8 mg/mL) infusion (premix) 1 mg/kg/hr ([place]) intravenous Continuous Manuel Jarrett MD Stopped at [...] niCARdipine (CARDENE) injection intravenous PRN Jh Onofre CHILD ADOLESCENT PSYCHIATRIST 100 mcg at 05/02/23 1822 phenylephrine (KARLI-SYNEPHRINE) 1 mg/10 mL (100 mcg/mL) in sodium chloride 0.9% (premix) intravenousPRN Emeka Barrow MD 100 mcg at 05/02/23 1703 phenylephrine (KARLI-SYNEPHRINE) 1 mg/10 mL (100 mcg/mL) in sodium chloride 0.9% (premix) intravenousContinuous PRN Jh Onofre, CHILD ADOLESCENT PSYCHIATRIST Stopped at 05/02/23 1713 propofoL (DIPRIVAN) 10 [...] repair Ann Goldstein MD Vascular Surgery Fellow [phone] Cosigned by Alonzo Duncan MD at 05/03/2023 4:20 PM PULPWOOD CUTTER WOOD CUTTER WOOD CUTTER * Faustino Herrera MD - 05/02/2023 5:39 [...] his mother, specifically mentioning stroke, paralysis, rTAAD, [place], need for future procedures, arterial rupture. He gave consent for surgery. WOOD CUTTER * Nicole Bergman RN - 05/02/2023 4:46 PM CST Pt taken off to OR via bed and continuous cardiac monitors with gtts by OR staff. WOOD CUTTER * Timmy Rosales - 05/02/2023 3:43 PM CST Timmy Bobby [phone] 05/02/23 1500 Time Spent Start Time 1220 Stop Time 1230 Time Calculation (min) 10 min Patient Spiritual Assessment Spirituality Assessed Yes Nondenominational Affiliation Buddhism Active in Advent Yes Spiritual Needs Anointing;Prayer Clinical Encounter Type Visited With Patient and family together Response Type Routine visit Routine Visit Introduction Reason for visit Sacramental;Support Sacramental Encounters Sacrament of Sick-Anointing Anointed Outcomes and Progress Aligning care with patient's values Achieved Preserve dignity and respect Achieved Demonstrating care and respect Achieved Interventions Interventions Active listening;Offer emotional support;Prayer (Benediction) WOOD CUTTER * Mariel Pope OT - 05/02/2023 3:38 PM CST Occupational Therapy 05/02/23 1538 General OT Missed Visit Reason Bedrest WOOD CUTTER * Ann Clay MD - 05/02/2023 2:00 [...] Carline Jerome MD at 05/02/2023 8:44 AM PULPWOOD CUTTER WOOD CUTTER WOOD CUTTER WOOD CUTTER Associated attestation - Carline Jerome MD - 05/02/2023 8:44 AM PULPWOOD CUTTER Attending Documentation: I have seen and examined this critically ill patient on the day of service. I have reviewed and confirmed the history, physical exam, laboratory and radiologic data with the house staff as documentedin the ICU Resident note. I have reviewed and discussed my treatment plan with the ICU team and other medical/applications sales consultant staff, making frequent assessments and [...] around 1AM with symptoms and presented to [facility]. 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 This time was in addition to and separate from care provided by other practitioners on this day of service. I spent time reviewing and interpreting data from bedside monitors, laboratory results, and imaging, I spent time discussing the management of this critically ill patient with consultants and the medical staff and I spent time documenting in the medical record WOOD CUTTER * Dalton Locke MD - 05/12/2023 4:16 [...] plan with the patient's team and other medical/applications sales consultant staff. This time was in addition to and separate from care provided by other practitioners on this day of service. I spent time reviewing and interpreting data from bedside monitors, laboratory results, and imaging, I spent time discussing the management of this critically ill patient with consultants and the medical staff and I spent time documenting in the medical record WOOD CUTTER * Dalton Locke MD - 2023 4:16 [...] plan with the patient's team and other medical/applications sales consultant staff. This time was in addition to and separate from care provided by other practitioners on this day of service. I spent time reviewing and interpreting data from bedside monitors, laboratory results, and imaging, I spent time discussing the management of this critically ill patient with consultants and the medical staff and I spent time documenting in the medical record WOOD CUTTER * Dalton Locke MD - 05/10/2023 4:14 [...] plan with the ICU team and other medical/applications sales consultant staff, making frequent assessments and [...] spent time documenting in the medical record WOOD CUTTER * Dalton Locke MD - 05/09/2023 3:58 [...] plan with the ICU team and other medical/applications sales consultant staff, making frequent assessments and [...] spent time documenting in the medical record WOOD CUTTER * Dalton Locke MD - 05/08/2023 2:53 [...] plan with the ICU team and other medical/applications sales consultant staff, making frequent assessments and [...] spent time documenting in the medical record WOOD CUTTER WOOD CUTTER * Dalton Locke MD - 05/07/2023 2:55 [...] plan with the ICU team and other medical/applications sales consultant staff, making frequent assessments and [...] spent time documenting in the medical record WOOD CUTTER * Thea Rizzo MD - 05/07/2023 1:11 PM CSTAssociated Order(s): Arterial Line Insertion Post-Procedure Diagnose(s): Dissection of thoracoabdominal aorta (CMS/HCC) (HCC) Arterial Line Insertion Date/Time: 05/07/2023 1:42 PM Performed by: Thea Rizzo MD Authorized by: Thea Rizzo MD [place] Protocol: Informed consent: Risks, benefits, alternatives discussed and patient/event representative/guardian agrees and accepts Patient's stated name/ [...] Dalton Locke MD at 05/08/2023 1:47 PM PULPWOOD CUTTER WOOD CUTTER WOOD CUTTER Associated attestation - Dalton Locke MD - 05/08/2023 1:47 PM PULPWOOD CUTTER Attending Procedure Attestation: I was present for, and directly supervised the procedure as documented by the Resident. Silverio Locke MD [facility] Department of Anesthesiology * Michael Hamm MD - 05/07/2023 2:50 AM CSTAssociated Order(s): Arterial Line Insertion Post-Procedure Diagnose(s): Dissection of aorta, unspecified portion of aorta (HCC) Arterial Line Insertion Date/Time: 05/07/2023 2:50 AM Performed by: Michael Hamm MD Authorized by: Michael Hamm MD [place] Protocol: RN Notified of Procedure: yes Informed [...] Dalton Locke MD at 05/08/2023 1:47 PM PULPWOOD CUTTER WOOD CUTTER WOOD CUTTER * Dustin Souza DO - 05/06/2023 9:35 PM CSTAssociated Order(s): Intubation Post-Procedure Diagnose(s): Dissection of aorta, unspecified portion of aorta (HCC) Intubation Date/Time: 05/06/2023 9:36 PM Performed by: Dustin Souza DO Authorized by: Dustin Souza DO [place] Protocol: RN Notified of Procedure: yes Informed [...] Dalton Locke MD at 05/08/2023 1:47 PM PULPWOOD CUTTER WOOD CUTTER WOOD CUTTER * Gonzalez Eduardo MD - 05/05/2023 11:32 [...] Jaden Smith MD at 05/06/2023 2:52 PM PULPWOOD CUTTER WOOD CUTTER WOOD CUTTER * Shira Dodson MD - 05/05/2023 10:05 PM CSTAssociated Order(s): Lumbar Drain Post-Procedure Diagnose(s): Dissection of aorta, unspecified portion of aorta (HCC) Lumbar Drain Date/Time: 05/05/2023 10:05 AM Performed by: Shira Dodson MD Authorized by: Shira Dodson MD [place] Protocol: RN Notified of Procedure: yes Informed [...] of neurosurgical team performing procedure under sedation. WOOD CUTTER * Carline Jerome MD - 05/05/2023 1:24 [...] plan with the ICU team and other medical/applications sales consultant staff, making frequent assessments and [...] spent time documenting in the medical record WOOD CUTTER * Carline Jerome MD - 05/04/2023 3:00 [...] plan with the ICU team and other medical/applications sales consultant staff, making frequent assessments and [...] spent time documenting in the medical record WOOD CUTTER * Thea Rizzo MD - 05/03/2023 9:57 PM CSTAssociated Order(s): Central Line Insertion Post-Procedure Diagnose(s): Dissection of aorta, unspecified portion of aorta (HCC) Central Line Insertion Date/Time: 05/03/2023 9:57 PM Performed by: Thea Rizzo MD Authorized by: Thea Rizzo MD [place] Protocol: RN Notified of Procedure: yes Informed consent: Risks, benefits, alternatives discussed and patient/event representative/guardian agrees and accepts Patient's stated name/ [...] Carline Jerome MD at 05/04/2023 3:01 PM PULPWOOD CUTTER WOOD CUTTER WOOD CUTTER * Carline Jerome MD - 05/03/2023 2:29 [...] plan with the ICU team and other medical/applications sales consultant staff, making frequent assessments and [...] spent time documenting in the medical record WOOD CUTTER * Carline Jerome MD - 05/02/2023 5:26 [...] plan with the ICU team and other medical/applications sales consultant staff, making frequent assessments and [...] spent time documenting in the medical record WOOD CUTTER documented in this encounter Consult Notes * [...] was transferred from the outside hospital to [facility] for further management. On arrival at [facility] at 5:00 a.m. blood pressure 187/118 in [...] right costophrenic angle is excluded from the [id number]. No pneumothorax. Dictated by: Chris Turner MD [...] by: Aaron Schafer M.D. Echocardiogram report reviewed [id number] left ventricular Left ventricular ejection fraction reported [...] seeing him for consultation. Joaquín Abarca MD WOOD CUTTER * Gardenia Resendiz LCSW - 05/06/2023 11:39 AM CSTAssociated Order(s): IP CONSULT TO SOCIAL WORK Social work acknowledges order for patient's family seeking additional community resources. Social work spoke with patient's significant other Tania ([phone]). She stated that the house hold consists of patient, herself and 7 children. Both herself and patient work, however it is uncertain how long patient will be unable to work. Patient does not have any short term or longterm benefits through his employer. Patient has already applied for food stamps, application is pending. Social work discussed referrals being sent through [employer] for mortgage payment assistance and food assistance, Tania provided consent. Referrals sent to [facility] and [place] for mortgage assistance and [employer] [facility] [employer] for food assistance. No other social work needs at this time. Gardenia Resendiz LCSW WOOD CUTTER * Dewayne Looney MD - 05/06/2023 8:38 [...] tablet 1,000 mg 1,000 mg oral Q6H [facility] aspirin chewable tablet 81 mg 81 mg oral Daily bumetanide (BUMEX) 0.25 mg/mL injection 2 mg 2 mg intravenous Q6H [facility] carvediloL (COREG) tablet 50 mg 50 mg oral BID chlorhexidine (PERIDEX) 0.12 % solution 15 mL 15 mL swish & spit BID dilTIAZem (CARDIZEM) injection 15 mg 15 mg intravenous Q8H docusate (COLACE) 10 mg/mL oral liquid 100 mg 100 mg oral BID [Held by Provider] heparin 5,000 unit/mL injection 5,000 Units 5,000 Units subcutaneous Q8H [facility] lidocaine (ASPERCREME) 4 % patch 2 [...] (premix) 600 mg 600 mg intravenous Q12H [facility] lisinopriL (PRINIVIL,ZESTRIL) tablet 20 mg 20 mg oral Daily meropenem (MERREM) 1,000 mg/110 mL in sodium chloride 0.9% (premix) 1,000 mg 1,000 mg intravenous Q8H [facility] metoprolol (LOPRESSOR) tablet 100 mg 100 [...] please contact neurology consults senior resident at [phone] and specify that this consult was staffed with Consult Team A. Dewayne Looney MD Resident Physician Neurology, PGY-4 05/06/23 Cosigned by Bridgett Gonzalez MD at 05/06/2023 10:47 PM PULPWOOD CUTTER WOOD CUTTER WOOD CUTTER Associated attestation - Bridgett Gonzalez MD - 05/06/2023 10:47 PM PULPWOOD CUTTER Attending Documentation: I have seen and examined [...] NEUROSURGERY Neurosurgery Consultation Patient: Eriberto Chau CSN: [id number] : 1990 Admission date: 05/01/2023 Length of stay (days): 4 Consulting: Dr. mSith Reason for consultation: Concern for spinal cord [...] patient's primary contact is his mother Meron ([phone]). Family history: No family history on file. [...] discussed with the chief resident and attending environmental technician. Carlos Alberto Nix MD PhD Cosigned by Jaden Smith MD at 05/06/2023 11:37 PM PULPWOOD CUTTER WOOD CUTTER WOOD CUTTER WOOD CUTTER WOOD CUTTER WOOD CUTTER WOOD CUTTER Associated attestation - Jaden Smith MD - 05/06/2023 11:37 PM PULPWOOD CUTTER I have seen and examined the patient [...] the end of the case. Per Anesthesia CHILD ADOLESCENT PSYCHIATRIST report, the patient began having left- sided [...] kept intubated and transferred to the MICU. -[place] nasal spray QID, [place]olverine nasal gel around nares BID to keep [...] during daytime hours: [facility] > Otolaryngology > [facility] Established Consults Weekends or after 6pm M-F: [facility]>Otolaryngology>[facility] Resident Nightfloat Primary or ENT consult phone: Cosigned by Kaylie Saldana MD at 05/05/2023 8:49 PM PULPWOOD CUTTER WOOD CUTTER WOOD CUTTER Associated attestation - Kaylie Saldana MD - 05/05/2023 8:49 PM PULPWOOD CUTTER I have seen and examined the patient [...] the false lumen. He was transferred to [facility] for further evaluation and treatment. Here, [...] tablet 1,000 mg, 1,000 mg, oral, [facility]H [facility] Burk William, MD, 1,000mg at 05/02/23 1225 [...] mL (8 mg/mL) infusion (premix), 1 mg/kg/hr ([place]), intravenous, Continuous, Manuel Jarrett MD, Last Rate: [...] AM Result Value Ref Range Product code V5099R06 Unit Number [id number] Product Blood Type APOS Dispense Status CROSSMATCHED Product code X7610B82 Unit Number [id number] Product Blood Type APOS Dispense Status CROSSMATCHED Product code R2307X47 Unit Number [id number] Product Blood Type APOS Dispense Status CROSSMATCHED Product code A2031Y44 Unit Number [id number] Product Blood Type APOS Dispense Status CROSSMATCHED [...] the false lumen. He was transferred to [facility] for further evaluation and treatment. Here, [...] All feel these findings not to be event representative of a type a dissection, therefore [...] of aorta (HCC) Patient discussed with Dr. Sacnhez, who will determine the final recommendations. Gladys Gallagher NP Cosigned by Mirna Sanchez MD at 05/02/2023 3:49 PM PULPWOOD CUTTER WOOD CUTTER WOOD CUTTER * Josseline Walker MD - 05/01/2023 7:00 [...] around 1AM with symptoms and presented to [facility]. 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 TYPE OF STUDY: Multiple CT images [...] images may or may not represent the [place] source data set and thus may contain [...] IMAGING STUDY STUDY INITIALLY PERFORMED: 05/01/2023 at [facility]. TYPE OF STUDY: Multiple CT images [...] opacification/mixing occurring from likely fenestration below the [id number]. The nonopacification of the false lumen may [...] images may or may not represent the [place] source data set and thus may contain [...] only and have not been reviewed by [facility]. There will be no report generated by a [facility] Radiologist. ECG 12 lead Meron Monterroso MD [...] Alonzo Duncan MD at 05/01/2023 3:25 PM PULPWOOD CUTTER WOOD CUTTER WOOD CUTTER documented in this encounter Nursing Notes * Nataliya English RN - 05/16/2023 4:40 PM CST DC education complete. Meds delivered from mobile pharmacy. Pt has ride here. WOOD CUTTER documented in this encounter ED Notes * [...] time. Psychiatric: Mood and Affect: Mood normal. [facility] Medical Decision Making Pt is a [...] Pre-Arrival Note The patient is coming from [facility] accepted by Dr Granados patient has [...] Nagi Landa MD at 05/01/2023 11:33 PM PULPWOOD CUTTER WOOD CUTTER WOOD CUTTER Associated attestation - Nagi Landa MD - 05/01/2023 11:33 PM PULPWOOD CUTTER I have seen and examined the patient [...] B dissection. Pt A&Ox4, Hypertensive to 180's. WOOD CUTTER * Gracie Cee RN - 05/01/2023 4:58 AM CST Bed: [facility] Expected date: 05/01/23 Expected time: 4:46 AM Means of arrival: Comments: Gracie Cee RN 05/01/23 0458 WOOD CUTTER documented in this encounter Miscellaneous Notes * Result Encounter Note - Faustino Herrera MD - 05/16/2023 4:[address] reviewed, demonstrating interval growth. Given his SCI after index procedure, will plan to manage medically at this point. Will need repeat CTA CAP in 1 m post discharge with plans for intervention if growth persists. WOOD CUTTER * Plan of Care - Nataliya English [...] had cat scan. Orders for dc placed WOOD CUTTER * Assessment & Plan Note - Meron Parekh NP - 05/16/2023 10:44 AM PULPWOOD CUTTER Associated Problem(s): Urinary retention Patient with urinary retention requiring straight cath X1 05/15, now voiding without any issues. - Continue Flomax. - Patient requests urology follow up, referral placed. WOOD CUTTER * Plan of Care - Gladys Dietz RN - 05/16/2023 6:40 AM PULPWOOD CUTTER Goals: Clinical Goals for the Shift: VSS, [...] and injury in home environment Outcome: Progressing WOOD CUTTER * Plan of Gladys Iniguez RN - 05/15/2023 5:58 AM PULPWOOD CUTTER Goals: Clinical Goals for the Shift: VSS, [...] and injury in home environment Outcome: Progressing WOOD CUTTER * Plan of Care - Gladys Dietz RN - 05/14/2023 6:09 AM PULPWOOD CUTTER Goals: Clinical Goals for the Shift: VSS, [...] 0600 by Gladys Dietz RN Outcome: Progressing WOOD CUTTER * Plan of Care - Josh Petersen RN - 05/13/2023 6:46 PM PULPWOOD CUTTER Problem: Activity: Goal: Mobility will improve Outcome: [...] Summary: VSS, ambulatory, pain control, turns sulf WOOD CUTTER * Assessment & Plan Note - Meron Parekh NP - 05/13/2023 12:49 PM PULPWOOD CUTTER Associated Problem(s): HTN (hypertension) Hx of uncontrolled HTN, non-compliant to medications. - Need to avoid hypotension in post TEVAR period. - SBP goal less than 180. - Currently on Coreg 12.5mg BID. WOOD CUTTER * Assessment & Plan Note - Meron Parekh NP - 05/13/2023 12:43 PM PULPWOOD CUTTER Associated Problem(s): Pneumonia Tracheal aspirate 05/05 with Haemophilus Inf - susana(05/04 - 05/10), linezolid (05/04-05/06) WOOD CUTTER * Assessment & Plan Note - Meron Parekh NP - 05/13/2023 12:42 PM PULPWOOD CUTTER Associated Problem(s): Epistaxis Significant nose bleed in the OR requiring intra-op ENT c/s. DL performed, no other sources of bleeding visualized. ACT post protamine 149. - ENT following - ocean spray tid - no other s/s bleeding WOOD CUTTER * Assessment & Plan Note - Meron Parekh NP - 05/13/2023 12:41 PM PULPWOOD CUTTER Associated Problem(s): Dissection of thoracoabdominal aorta (CMS/HCC) [...] plan to discharge to home this afternoon. WOOD CUTTER WOOD CUTTER WOOD CUTTER WOOD CUTTER WOOD CUTTER * Plan of Care - Vivian Wilcox [...] and injury in home environment Outcome: Progressing WOOD CUTTER * Plan of Ann - Veronica Savage [...] Goal: Pain level will decrease Outcome: Progressing WOOD CUTTER * Plan of Veronica Lerner RN - [...] free from injury from falls Outcome: Progressing WOOD CUTTER * Plan of Care - Yulisa Polk RRT - 05/12/2023 3:48 AM CST Patient did not wear hospital provided NPPV overnight. WOOD CUTTER * Plan of Care - Sally Ross [...] and injury in home environment Outcome: Progressing WOOD CUTTER * Plan of Care - Mateo Maza RRT - 2023 4:[address] [facility] CPAP PLAN: The patient will conitnue to wear [facility] CPAP for JANELLE when sleeping. V 60 CPAP 7 cmH2O, WOOD CUTTER * Plan of Care - Veronica Savage [...] pain control plan will improve Outcome: Progressing WOOD CUTTER * Plan of Care - Sally Ross [...] Goal: Pain level will decrease Outcome: Progressing WOOD CUTTER * Plan of Ann - Teagan Jung [...] ordered and continue to monitor the patient. WOOD CUTTER * Plan of Care - Alana Yee [...] Goal: Pain level will decrease Outcome: Progressing WOOD CUTTER * Plan of Care - Gardenia Resendiz LCSW - 05/09/2023 3:16 PM CST Social work received notification through [email or web address] that [facility]. [facility] to reach out to patient/SO directly for assistance. Gardenia Resendiz LCSW WOOD CUTTER * Plan of Care - Christina Jones [...] TBD Support following discharge: meron blankenship Mother [phone] Solange Ireland Other [phone] Transportation: ambulance Patient's Identified Problem/Goal Problem: Ensure acute medical needs are met and that patient has a safe discharge plan. Goal: Secure a discharge plan that patient/family are agreeable with and ensure patient has continuum of care. Patient and family are agreeable with plan. administrative services manager will continue to follow and assist with discharge planning as needed WOOD CUTTER * Plan of Care - Mateo Maza RRT - 05/09/2023 5:[address] [facility] CPAP PLAN: The patient will continue to wear BJ CPAP when sleeping for JANELLE. WOOD CUTTER * Plan of Care - Karolina Arana [...] Goal: Pain level will decrease Outcome: Progressing WOOD CUTTER * Plan of Ann - Pooja Cameron RN - 05/08/2023 5:47 PM PULPWOOD CUTTER Problem: Activity: Goal: Mobility will improve Outcome: [...] pain regimen, neuro changes monitored per orders WOOD CUTTER * Plan of Care - Karolina Arana RN - 05/07/2023 11:26 PM PULPWOOD CUTTER Problem: Activity: Goal: Mobility will improve Outcome: [...] pain control, Q1H neuro and neruvasxular checks. WOOD CUTTER * Plan of Ann - Pooja Cameron RN - 05/07/2023 4:29 PM PULPWOOD CUTTER Problem: Activity: Goal: Mobility will improve Outcome: [...] bumex Summary: MAP>100, pain regimen adjusted, HDS WOOD CUTTER * Plan of Pooja Montalvo RN - 05/06/2023 4:42 PM PULPWOOD CUTTER Problem: Activity: Goal: Mobility will improve Outcome: [...] plan vs CT, bumex given as ordered WOOD CUTTER * Medical Student - Quincy De La [...] pain, abdominal pain, and SOB. 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 No evidence of type A [...] tablet 1,000 mg 1,000 mg oral Q6H [facility] aspirin chewable tablet 81 mg 81 mg oral Daily bumetanide (BUMEX) 0.25 mg/mL injection 2 mg 2 mg intravenous Q6H [facility] carvediloL (COREG) tablet 50 mg 50 mg oral BID chlorhexidine (PERIDEX) 0.12 % solution 15 mL 15 mL swish & spit BID dilTIAZem (CARDIZEM) injection 15 mg 15 mg intravenous Q8H docusate (COLACE) 10 mg/mL oral liquid 100 mg 100 mg oral BID [Held by Provider] heparin 5,000 unit/mL injection 5,000 Units 5,000 Units subcutaneous Q8H [facility] lidocaine (ASPERCREME) 4 % patch 2 [...] (premix) 600 mg 600 mg intravenous Q12H [facility] lisinopriL (PRINIVIL,ZESTRIL) tablet 20 mg 20 mg oral Daily meropenem (MERREM) 1,000 mg/110 mL in sodium chloride 0.9% (premix) 1,000 mg 1,000 mg intravenous Q8H [facility] metoprolol (LOPRESSOR) tablet 100 mg 100 [...] flush 0.5-20 mL 0.5-20 mL intra-catheter Q8H [facility] Continuous Medications: Current Facility-Administered Medications Medication [...] the interim, please contact neurology consults at [phone] (senior) and specify that this consult was staffed with Consult Team A. Quincy De La Cruz Medical Student Cosigned by Bridgett Gonzalez MD at 05/06/2023 10:50 PM PULPWOOD CUTTER WOOD CUTTER WOOD CUTTER Associated attestation - Bridgett Gonzalez MD - 05/06/2023 10:50 PM PULPWOOD CUTTER Attending Documentation: I have seen and examined the patient on 05/06/23. Please refer to resident note for formal recommendations. Bridgett Gonzalez MD, MSc * Plan of Care - Nella Griffin RN - 05/05/2023 3:59 PM PULPWOOD CUTTER Goals: Clinical Goals for the Shift: BP/HR [...] pain management regimen will improve Outcome: Progressing WOOD CUTTER * Plan of Care - Nikky Portillo [...] continue to monitor and evaluate the patient WOOD CUTTER * Plan of Care - Ana Yap [...] wean ventilator as tolerated, monitor labs, diurese WOOD CUTTER * Plan of Care - Mateo Maza [...] settings and continue to monitor the patient WOOD CUTTER * Plan of Care - Jill Henning RN - 05/03/2023 7:27 PM PULPWOOD CUTTER Goals: Clinical Goals for the Shift: wean to extubate, BP and HR control Summary: Unable to extubate this shift, remains on esmolol for HR control, clevidipine drip for BP management. WOOD CUTTER * Plan of Care - Mateo Maza RRT - 05/03/2023 5:46 AM CST SAT/SBT WEAN SAFETY SCREEN for (SBT): FAIL - PEEP: PEEP > [id number]. (Patient's PEEP = 12 cm H20). SBT OUTCOME: FAIL - Safety Screen Failure Excluded Patient From Spontaneous Breathing Trial PURSUE EXTUBATION: NO - Failed SAFETY Screen. PLAN: Due to Safety Screen failure, maintain current settings and continue to monitor the patient WOOD CUTTER * Plan of Care - Mateo Maza RRT - 05/02/2023 10:30 PM CST IMPRESSION: Patient had possible intermittent bronchospasms according to anesthesia. Patient would drop SPO2 while wheezing. Anesthesia said albuterol was very helpful . Plan: Q4 albuterol for intermittent bronchospasm. WOOD CUTTER * Perioperative Nursing Note - Radha Sparks RN - 05/02/2023 8:35 PM PULPWOOD CUTTER 2033 Patient began coughing, right nare started bleeding. ENT called back to room. 2044 Teagan Kwong, fellow back to room. Patient suctioned and floseal placed inside nose. 2049 1mL air removed from TR Band, 4mL total left in band at this time. WOOD CUTTER * Perioperative Nursing Note - Radha Sparks RN - 05/02/2023 8:30 PM PULPWOOD CUTTER 2019 intraoperative note: ENT fellow in to see patient for left nasal bleeding. Silver nitrate stick used on anterior active oozing and nare was packed with gelfoam and surgicel. 2029 1mL air removed from TR Band, total of 5mL air at this time. WOOD CUTTER * Perioperative Nursing Note - Radha Sparks RN - 05/02/2023 8:10 PM PULPWOOD CUTTER 2009 intraoperative note: 1mL air removed from TR Band, total of 6 remaining. WOOD CUTTER * Perioperative Nursing Note - Radha Sparks RN - 05/02/2023 7:39 PM PULPWOOD CUTTER 1908 Intraoperative note: TR Band placed left radial per Dr. Herrera. Total of 8mL air placed in band. 1939: 1mL air removed from band, total air remaining 7mL. WOOD CUTTER * Op Note - Faustino Herrera MD - 05/02/2023 5:45 PM CST SURGEON Faustino Herrera MD [employer]ORATORY TECHNICIAN Ann Goldstein MD ANESTHESIA General. PREOPERATIVE DIAGNOSIS [...] Repair of thoracic aortic dissection with a [place] thoracic branched endograft and left subclavian stent [...] of the ultrasound was placedon the patient???s [facility] hospital chart. Left common femoral artery access was obtained.The needle was seen entering the artery and flow in the artery was noted. Two proglides were placed in the pre-close technique. The patient was systemically anticoagulated. We percutaneously accessed the left radial artery under real-time ultrasound guidance, and advanced a wire and a 4 [place]an catheter into the aortic arch. Guidewires were passed to the ascending aorta and catheters advanced over the guidewires into the aorta from the femoral level and we advanced the intravascular ultrasound over thisto confirm that we were in the true lumen. We then sequentially dilated and advanced a 22 [place]an [place] DrySeal into the proximal descending aorta. We then advanced a snare from the DrySeal, and snareda jag wire which had been advanced from the left radial approach. This was then externalized both the left radial and left femoral approach. We then advanced a 31 mm [place] thoracic branched endograft after cannulating both hypo tube as well as the main lumen. This was advanced into the aortic arch. D iagnostic ascending and aortic arch angiography were performed to delineate the anatomy, and the positions were noted. We then deployed this in zone 2, and did not balloon mold this given the dissection. We used the 4 [place] sheath to perform a diagnostic angiogram of [...] I was present for the entire procedure BIOLOGY INTERN MEASURES The patient received 2 g of Ancef within 60 minutes of procedure time. We utilized approximately 39cc of Optiray contrast and fluoroscopy time was 14.4 minutes (1359 mGy). . WOOD CUTTER * Brief Op Note - Rosey Fine MD - 05/02/2023 5:45 PM PULPWOOD CUTTER Operative Progress Note Surgical Team: Surgeon(s) and Role: * Faustino Herrera MD - Primary * Brynn Lazo MD - Resident - Assisting * Rosey Fine MD - Fellow * Ann Goldstein MD - Fellow Anesthesiologist: Ney Alex MD; Dalton Locke MD CHILD ADOLESCENT PSYCHIATRIST: Heber Fernández CRNA; Jh Onofre CRNA Roadmaster: Emeka Barrow MD Jboss Architect: Radha Grullon RN Jboss Architect Relief: Jill Mace RN; Radha Sparks, RN Scrub Relief: Vivian Mcgregor RN Scrub: Nilson Wilson ST Jboss Architect Second: Natty Parker RN FLOAT: Essie Velazquez ST CV Qualifications Examiner: Aman Frederick, RT DATE OF SURGERY : 05/02/2023 Preoperative Diagnosis: Pre-op Diagnosis * 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 RENA at end of case showed no abnormalities of the visualized ascending aorta. Estimated Blood Loss: 10 mL Intraoperative Fluids: 1L Specimens: No specimen collected in procedure Implants: Implant Name Type Inv. Item Serial No. Warp Tying Machine Tender Lot No. [id number] No. Used Action [employer] CLSR PERCLOSE PROSTYLE SUT-MEDIATD CLOSURE-REPAIR SYS 22576-34 - [id number] Closure Device WILEY [employer] CLSR PERCLOSE PROSTYLE SUT-MEDIATD CLOSURE-REPAIR SYS 28458-58 [employer] [id number] Left 3 Implanted [employer] Stent Graft Aortic Covered Tag [id number] Eptfe Nitinol [id number] - [id number] - [id number] Graft [employer] Stent Graft Aortic Covered Tag [id number] Eptfe Nitinol [id number] [employer] N/A 1 Implanted [employer] Stent Graft Thoracic Side Branch Tag [id number] Eptfe Nitinol [id number] - [id number] - [id number] Stent [employer] Stent Graft Thoracic Side Branch [id number] Eptfe Nitinol [id number] [employer] Left 1 Implanted Blood/Blood Products Transfused: None Complications: None Condition on Discharge from the operating room was stable. Palpable DPs and PTs bilaterally. Rosey Fine MD Date: 05/02/2023 Time: 7:51 PM Cosigned by Faustino Herrera MD at 05/03/2023 8:06 AM PULPWOOD CUTTER WOOD CUTTER WOOD CUTTER * Assessment & Plan Note - Gladys Gallagher NP - 05/02/2023 2:02 PM PULPWOOD CUTTER Associated Problem(s): Dissection of aorta, unspecified portion of aorta (HCC) 32y/o male with uncontrolled HTN who presented to an OSH ER with acute onset shortness of breath, chest pain and back pain. 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 He was transferred to [facility] for further evaluation and treatment. Here, [...] All feel these findings not to be event representative of a type a dissection, therefore [...] findings of HFrEF with LVEF of 41%. WOOD CUTTER * Plan of Care - Nicole Bergman [...] Goal: Pain level will decrease Outcome: Progressing WOOD CUTTER * Plan of Ann - Karolina Arana [...] Goal: Pain level will decrease Outcome: Progressing WOOD CUTTER * Plan of Care - Taco Cancino, VEGETABLE FARM WORKER - 05/02/2023 2:05 AM CST NPPV - [...] NPPV to help with his pressures. . WOOD CUTTER * Significant Event - Nicole Pearce MD [...] unremarkable. Dr. Simpson aware. Nicole Pearce MD [facility] Fellow WOOD CUTTER * Initial Assessments - Yadira Portillo RN - 05/01/2023 2:11 PM CST CM Initial Assessment Interview Note Information Obtained From: Other (Specify) Name: Meron Blankenship, mother [phone] (05/01/231402) Admission Source: OSH, [facility]; otherwise from Home Impression: 32 y/o [...] arranged?: No (05/01/23 1045) Health Insurance Coverage: [employer] Medicaid Prescription Coverage: Yes Pharmacy: [facility] in [place]. Mom unaware of which pharmacy takes his plan currently Primary Care Provider: Used to be seen at the [facility] but hasn't been in almost 2 years Prior to Admission: Functional Status: Independent with ADLs Primary Caregiver: Self Support System: Spouse/Significant Other, Parent (Meron Blankenship, mother [phone]. Solange Ireland, mother in law [phone]) Home Care Services: No Durable Medical Equipment: [...] Collaboration with patient, MD, direct care nurse, Decision Support Analyst, and other members of the health care team to assure needed interventions completed. 2. Return patient to optimal level of self-care post discharge. 3. Treasury Director will follow for Discharge Planning - interventions [...] with the aftercare plan. Yadira Portillo RN WOOD CUTTER * Plan of Care - Shirley Horan [...] and HR control, pain control, monitor labs WOOD CUTTER * ED Procedure Note - Kameron Wadsworth MD - 05/01/2023 12:32 PM PULPWOOD CUTTER Associated Order(s): Critical Care Procedure Critical Care [...] admitting team. Kameron Wadsworth MD 05/01/23 1232 WOOD CUTTER * ED Procedure Note - Nagi Landa MD - 05/01/2023 7:33 AM PULPWOOD CUTTER Associated Order(s): Critical Care Procedure Critical Care [...] admitting team. Nagi Landa MD 05/01/23 2334 WOOD CUTTER * ED Re-evaluation Note - Kameron Wadsworth MD - 05/01/2023 7:28 AM PULPWOOD CUTTER ED Re-evaluation Briefly, this is a 32-year-old [...] nicardipine dose. Kameron Wadsworth MD 05/01/23 0736 WOOD CUTTER * ED Re-evaluation Note - Faustino Elias MD - 05/01/2023 6:54 AM PULPWOOD CUTTER ED Re-evaluation TRANSITION OF CARE: I, Faustino [...] Pre-Arrival Note The patient is coming from [facility] accepted by Dr Granados patient has [...] present Faustino Elias MD Resident 05/01/23 1116 WOOD CUTTER * ED Procedure Note - Meron Monterroso MD - 05/01/2023 5:56 AM CSTAssociated Order(s): Arterial line Procedure Arterial line Date/Time: 05/01/2023 5:56 AM Performed by: Meron Monterroso MD Authorized by: Nagi Landa MD [place] Protocol: RN Notified of Procedure: yes Indications: [...] Nagi Landa MD at 05/02/2023 12:02 AM PULPWOOD CUTTER WOOD CUTTER WOOD CUTTER Associated attestation - Nagi Landa MD - 05/02/2023 12:02 AM PULPWOOD CUTTER I was present for the grande portions [...] Nagi Landa MD at 05/02/2023 12:02 AM PULPWOOD CUTTER WOOD CUTTER WOOD CUTTER Associated attestation - Nagi Landa MD - 05/02/2023 12:02 AM PULPWOOD CUTTER I have personally reviewed the tracing and the resident's interpretation. I agree with the findings. * ED Pre-Arrival Note - Gracie Cee RN - 05/01/2023 4:47 AM CST Pre-Arrival Note The patient is coming from [facility] accepted by Dr Granados patient has a Type B dissection . The patients report called to Dr Cisse . The patient has had NitroDrip started as well as Labetalol Drip Gracie Cee RN WOOD CUTTER documented in this encounter Plan of Treatment Pending Results Name Type Priority Associated Diagnoses Date /Time Type and screen Lab Timed 4:10 AM PULPWOOD CUTTER Lactate, whole blood Lab Timed 07/2022 5:10 PM PULPWOOD CUTTER TSH reflex to free T4 Lab Routine 09/2022 12:10 AM PULPWOOD CUTTER Hepatic function panel Lab Routine 12:37 AM PULPWOOD CUTTER Scheduled Orders Name Type Priority Associated Diagnoses [...] ABDOMEN PELVIS Pending Discharge 05/16/2023 10:28 AM PULPWOOD CUTTER EGFR Routine 05/16/2023 4:03 AM PULPWOOD CUTTER CBC WITHOUT DIFFERENTIAL Routine 05/16/2023 4:03 AM PULPWOOD CUTTER PHOSPHORUS Routine 05/16/2023 4:03 AM PULPWOOD CUTTER MAGNESIUM Routine 05/16/2023 4:03 AM PULPWOOD CUTTER BASIC METABOLIC PANEL Routine 05/16/2023 4:03 AM PULPWOOD CUTTER TYPE AND SCREEN Routine 05/15/2023 5:26 AM PULPWOOD CUTTER CBC WITHOUT DIFFERENTIAL STAT 05/15/2023 5:12 AM PULPWOOD CUTTER EGFR Routine 05/15/2023 4:36 AM PULPWOOD CUTTER CBC WITHOUT DIFFERENTIAL Routine 05/15/2023 4:36 AM PULPWOOD CUTTER PHOSPHORUS Routine 05/15/2023 4:36 AM PULPWOOD CUTTER MAGNESIUM Routine 05/15/2023 4:36 AM PULPWOOD CUTTER BASIC METABOLIC PANEL Routine 05/15/2023 4:36 AM PULPWOOD CUTTER EGFR Routine 05/14/2023 6:01 AM PULPWOOD CUTTER CBC WITHOUT DIFFERENTIAL Routine 05/14/2023 6:01 AM PULPWOOD CUTTER PHOSPHORUS Routine 05/14/2023 6:01 AM PULPWOOD CUTTER MAGNESIUM Routine 05/14/2023 6:01 AM PULPWOOD CUTTER BASIC METABOLIC PANEL Routine 05/14/2023 6:01 AM PULPWOOD CUTTER XR CHEST 1 VIEW IP Routine 05/13/2023 7:10 PM PULPWOOD CUTTER CRITICAL CARE Routine 05/13/2023 12:56 PM PULPWOOD CUTTER Dissection of thoracoabdominal aorta (CMS/HCC) (HCC) EGFR Routine 05/13/2023 12:10 AM PULPWOOD CUTTER APTT Routine 05/13/2023 12:10 AM PULPWOOD CUTTER PROTIME-INR Routine 05/13/2023 12:10 AM PULPWOOD CUTTER CBC WITHOUT DIFFERENTIAL Routine 05/13/2023 12:10 AM PULPWOOD CUTTER TYPE AND SCREEN Timed 05/13/2023 12:10 AM PULPWOOD CUTTER PHOSPHORUS Routine 05/13/2023 12:10 AM PULPWOOD CUTTER MAGNESIUM Routine 05/13/2023 12:10 AM PULPWOOD CUTTER BASIC METABOLIC PANEL Routine 05/13/2023 12:10 AM PULPWOOD CUTTER XR CHEST 1 VIEW IP Routine 05/12/2023 7:27 PM PULPWOOD CUTTER CRITICAL CARE Routine 05/12/2023 4:16 PM PULPWOOD CUTTER Dissection of thoracoabdominal aorta (CMS/HCC) (HCC) CBC WITHOUT DIFFERENTIAL Routine 05/12/2023 1:58 PM PULPWOOD CUTTER TRANSFUSE RED BLOOD CELLS Timed 05/12/2023 8:58 AM PULPWOOD CUTTER POCT GLUCOSE DEVICE Routine 05/12/2023 8 :50 AM PULPWOOD CUTTER PREPARE RBC Timed 05/12/2023 7:40 AM PULPWOOD CUTTER POTASSIUM, WHOLE BLOOD STAT 05/12/2023 12:12 AM PULPWOOD CUTTER EGFR Routine 05/12/2023 12:12 AM PULPWOOD CUTTER APTT Routine 05/12/2023 12:12 AM PULPWOOD CUTTER PROTIME-INR Routine 05/12/2023 12:12 AM PULPWOOD CUTTER CBC WITHOUT DIFFERENTIAL Routine 05/12/2023 12:12 AM PULPWOOD CUTTER TRIGLYCERIDES Timed 05/12/2023 12:12 AM PULPWOOD CUTTER PHOSPHORUS Routine 05/12/2023 12:12 AM PULPWOOD CUTTER MAGNESIUM Routine 05/12/2023 12:12 AM PULPWOOD CUTTER BASIC METABOLIC PANEL Routine 05/12/2023 12:12 AM PULPWOOD CUTTER XR CHEST 1 VIEW IP Routine 2023 8:01 PM PULPWOOD CUTTER CRITICAL CARE Routine 2023 4:16 PM PULPWOOD CUTTER Dissection of thoracoabdominal aorta (CMS/HCC) (HCC) CTA CHEST ABDOMEN PELVIS ED Urgent/IP Urgent 2023 11:16 AM PULPWOOD CUTTER POTASSIUM, WHOLE BLOOD STAT 2023 12:14 AM PULPWOOD CUTTER EGFR Routine 2023 12:14 AM PULPWOOD CUTTER APTT Routine 2023 12:14 AM PULPWOOD CUTTER PROTIME-INR Routine 2023 12:14 AM PULPWOOD CUTTER CBC WITHOUT DIFFERENTIAL Routine 2023 12:14 AM PULPWOOD CUTTER PHOSPHORUS Routine 2023 12:14 AM PULPWOOD CUTTER MAGNESIUM Routine 2023 12:14 AM PULPWOOD CUTTER BLOOD GAS, ARTERIAL STAT 2023 12:14 AM PULPWOOD CUTTER BASIC METABOLIC PANEL Routine 2023 12:14 AM PULPWOOD CUTTER XR CHEST 1 VIEW IP Routine 05/10/2023 9:50 PM PULPWOOD CUTTER ECG 12-LEAD STAT 05/10/2023 6:19 PM PULPWOOD CUTTER LIDOCAINE LEVEL Routine 05/10/2023 4:59 PM PULPWOOD CUTTER CRITICAL CARE Routine 05/10/2023 4:14 PM PULPWOOD CUTTER Dissection of thoracoabdominal aorta (CMS/HCC) (HCC) BLOOD CULTURE Routine 05/10/2023 12:57 PM PULPWOOD CUTTER BLOOD CULTURE Routine 05/10/2023 12:57 PM PULPWOOD CUTTER LACTATE Routine 05/10/2023 12:37 AM PULPWOOD CUTTER POTASSIUM, WHOLE BLOOD STAT 05/10/2023 12:37 AM PULPWOOD CUTTER EGFR Routine 05/10/2023 12:37 AM PULPWOOD CUTTER APTT Routine 05/10/2023 12:37 AM PULPWOOD CUTTER PROTIME-INR Routine 05/10/2023 12:37 AM PULPWOOD CUTTER CBC WITHOUT DIFFERENTIAL Routine 05/10/2023 12:37 AM PULPWOOD CUTTER TYPE AND SCREEN Timed 05/10/2023 12:37 AM PULPWOOD CUTTER PHOSPHORUS Routine 05/10/2023 12:37 AM PULPWOOD CUTTER MAGNESIUM Routine 05/10/2023 12:37 AM PULPWOOD CUTTER BLOOD GAS, ARTERIAL STAT 05/10/2023 12:37 AM PULPWOOD CUTTER HEPATIC FUNCTION PANEL Routine 05/10/2023 12:37 AM PULPWOOD CUTTER BASIC METABOLIC PANEL Routine 05/10/2023 12:37 AM PULPWOOD CUTTER POCT GLUCOSE DEVICE Routine 05/10/2023 12:16 AM PULPWOOD CUTTER OXYHEMOGLOBIN, CENTRAL VENOUS Routine 05/09/2023 11:35 PM PULPWOOD CUTTER XR CHEST 1 VIEW IP Routine 05/09/2023 9:29 PM PULPWOOD CUTTER POTASSIUM, WHOLE BLOOD STAT 05/09/2023 8:16 PM PULPWOOD CUTTER LIDOCAINE LEVEL Routine 05/09/2023 6:20 PM PULPWOOD CUTTER CRITICAL CARE Routine 05/09/2023 3:58 PM PULPWOOD CUTTER Dissection of thoracoabdominal aorta (CMS/HCC) (HCC) POTASSIUM, WHOLE BLOOD STAT 05/09/2023 12:54 PM PULPWOOD CUTTER LIPASE Routine 05/09/2023 12:54 PM PULPWOOD CUTTER HEPATIC FUNCTION PANEL Routine 05/09/2023 12:54 PM PULPWOOD CUTTER US VEIN DUPLEX LOWER EXTREMITY BILATERAL COMPLETE ED Urgent/IP Urgent 05/09/2023 11:23 AM PULPWOOD CUTTER ECG 12-LEAD Routine 05/09/2023 9:22 AM PULPWOOD CUTTER POTASSIUM, WHOLE BLOOD STAT 05/09/2023 8:04 AM PULPWOOD CUTTER POC BLOOD GAS AND CHEMISTRIES, ARTERIAL Routine 05/09/2023 6:22 AM PULPWOOD CUTTER POTASSIUM, WHOLE BLOOD STAT 05/09/2023 12:36 AM PULPWOOD CUTTER BLOOD GAS, ARTERIAL STAT 05/09/2023 12:36 AM PULPWOOD CUTTER EGFR Routine 05/09/2023 12:35 AM PULPWOOD CUTTER APTT Routine 05/09/2023 12:35 AM PULPWOOD CUTTER PROTIME-INR Routine 05/09/2023 12:35 AM PULPWOOD CUTTER CBC WITHOUT DIFFERENTIAL Routine 05/09/2023 12:35 AM PULPWOOD CUTTER TRIGLYCERIDES Timed 05/09/2023 12:35 AM PULPWOOD CUTTER PHOSPHORUS Routine 05/09/2023 12:35 AM PULPWOOD CUTTER MAGNESIUM Routine 05/09/2023 12:35 AM PULPWOOD CUTTER BASIC METABOLIC PANEL Routine 05/09/2023 12:35 AM PULPWOOD CUTTER XR CHEST 1 VIEW IP Routine 05/08/2023 7:59 PM PULPWOOD CUTTER POC BLOOD GAS AND CHEMISTRIES, ARTERIAL Routine 05/08/2023 7:25 PM PULPWOOD CUTTER POTASSIUM, WHOLE BLOOD STAT 05/08/2023 5:39 PM PULPWOOD CUTTER LIDOCAINE LEVEL Routine 05/08/2023 5:39 PM PULPWOOD CUTTER CRITICAL CARE Routine 05/08/2023 2:53 PM PULPWOOD CUTTER Dissection of thoracoabdominal aorta (CMS/HCC) (HCC) POTASSIUM, WHOLE BLOOD STAT 05/08/2023 11:44 AM PULPWOOD CUTTER POTASSIUM, WHOLE BLOOD STAT 05/08/2023 8:02 AM PULPWOOD CUTTER BLOOD GAS, ARTERIAL STAT 05/08/2023 8 :02 AM PULPWOOD CUTTER POTASSIUM, WHOLE BLOOD STAT 05/08/2023 1:08 AM PULPWOOD CUTTER EGFR Routine 05/08/2023 1:08 AM PULPWOOD CUTTER APTT Routine 05/08/2023 1:08 AM PULPWOOD CUTTER PROTIME-INR Routine 05/08/2023 1:08 AM PULPWOOD CUTTER CBC WITHOUT DIFFERENTIAL Routine 05/08/2023 1:08 AM PULPWOOD CUTTER PHOSPHORUS Routine 05/08/2023 1:08 AM PULPWOOD CUTTER MAGNESIUM Routine 05/08/2023 1:08 AM PULPWOOD CUTTER BLOOD GAS, ARTERIAL STAT 05/08/2023 1 :08 AM PULPWOOD CUTTER BASIC METABOLIC PANEL Routine 05/08/2023 1:08 AM PULPWOOD CUTTER POC BLOOD GAS AND CHEMISTRIES, ARTERIAL Routine 05/07/2023 8:40 PM PULPWOOD CUTTER TROPONIN I HIGH-SENSITIVITY 2-HOUR Timed 05/07/2023 8:36 PM PULPWOOD CUTTER XR CHEST 1 VIEW IP Routine 05/07/2023 8:26 PM PULPWOOD CUTTER ECG 12-LEAD STAT 05/07/2023 6:46 PM PULPWOOD CUTTER TROPONIN I HIGH-SENSITIVITY SERIES (BASELINE, 2HR, 4HR, 6HR) Routine 05/07/2023 6:15 PM PULPWOOD CUTTER POTASSIUM, WHOLE BLOOD STAT 05/07/2023 5:57 PM PULPWOOD CUTTER BLOOD GAS, ARTERIAL STAT 05/07/2023 5 :57 PM PULPWOOD CUTTER XR CHEST 1 VIEW ED Urgent/IP Urgent 05/07/2023 4:07 PM PULPWOOD CUTTER POC BLOOD GAS AND CHEMISTRIES, ARTERIAL Routine 05/07/2023 3:57 PM PULPWOOD CUTTER CRITICAL CARE Routine 05/07/2023 2:55 PM PULPWOOD CUTTER Dissection of thoracoabdominal aorta (CMS/HCC) (HCC) POTASSIUM, WHOLE BLOOD STAT 05/07/2023 2:42 PM PULPWOOD CUTTER BLOOD GAS, ARTERIAL STAT 05/07/2023 2 :42 PM PULPWOOD CUTTER DE ARTL CATHJ/CANNULJ MNTR/TRANSFUSION SPX PRQ Routine 05/07/2023 1:42 PM PULPWOOD CUTTER Dissection of thoracoabdominal aorta (CMS/HCC) (HCC) APTT STAT 05/07/2023 10:37 AM PULPWOOD CUTTER PROTIME-INR STAT 05/07/2023 10:37 AM PULPWOOD CUTTER BLOOD GAS, ARTERIAL STAT 05/07/2023 6 :13 AM PULPWOOD CUTTER POTASSIUM, WHOLE BLOOD STAT 05/07/2023 5:56 AM PULPWOOD CUTTER POTASSIUM, WHOLE BLOOD STAT 05/07/2023 3:58 AM PULPWOOD CUTTER DE ARTL CATHJ/CANNULJ MNTR/TRANSFUSION SPX PRQ Routine 05/07/2023 2:50 AM PULPWOOD CUTTER Dissection of aorta, unspecified portion of aorta (HCC) LACTATE Routine 05/07/2023 12:35 AM PULPWOOD CUTTER POTASSIUM, WHOLE BLOOD STAT 05/07/2023 12:35 AM PULPWOOD CUTTER EGFR Routine 05/07/2023 12:35 AM PULPWOOD CUTTER CBC WITHOUT DIFFERENTIAL Routine 05/07/2023 12:35 AM PULPWOOD CUTTER TYPE AND SCREEN Timed 05/07/2023 12:35 AM PULPWOOD CUTTER TRIGLYCERIDES Routine 05/07/2023 12:35 AM PULPWOOD CUTTER PHOSPHORUS Routine 05/07/2023 12:35 AM PULPWOOD CUTTER MAGNESIUM Routine 05/07/2023 12:35 AM PULPWOOD CUTTER BLOOD GAS, ARTERIAL STAT 05/07/2023 12:35 AM PULPWOOD CUTTER BASIC METABOLIC PANEL Routine 05/07/2023 12:35 AM PULPWOOD CUTTER MRI SPINE TOTAL COMPLETE WO CONTRAST ED Urgent/IP Urgent 05/07/2023 12:10 AM PULPWOOD CUTTER XR CHEST 1 VIEW ED Urgent/IP Urgent 05/06/2023 10:08 PM PULPWOOD CUTTER INTUBATION Routine 05/06/2023 9:36 PM PULPWOOD CUTTER Dissection of aorta, unspecified portion of aorta (HCC) XR CHEST 1 VIEW IP Routine 05/06/2023 7:41 PM PULPWOOD CUTTER POTASSIUM, WHOLE BLOOD STAT 05/06/2023 7:22 PM PULPWOOD CUTTER BLOOD GAS, ARTERIAL STAT 05/06/2023 7 :22 PM PULPWOOD CUTTER POTASSIUM, WHOLE BLOOD STAT 05/06/2023 4:35 PM PULPWOOD CUTTER BLOOD GAS, ARTERIAL STAT 05/06/2023 4 :35 PM PULPWOOD CUTTER POTASSIUM, WHOLE BLOOD STAT 05/06/2023 10:30 AM PULPWOOD CUTTER BLOOD GAS, ARTERIAL STAT 05/06/2023 10:30 AM PULPWOOD CUTTER POTASSIUM, WHOLE BLOOD STAT 05/06/2023 6:07 AM PULPWOOD CUTTER POC BLOOD GAS AND CHEMISTRIES, ARTERIAL Routine 05/06/2023 1:32 AM PULPWOOD CUTTER TROPONIN I HIGH-SENSITIVITY 6-HOUR Timed 05/06/2023 1:28 AM PULPWOOD CUTTER CBC WITHOUT DIFFERENTIAL Routine 05/06/2023 1:28 AM PULPWOOD CUTTER TRANSFUSE PLATELETS Timed 05/05/2023 11:38 PM PULPWOOD CUTTER TRANSFUSE PLATELETS Timed 05/05/2023 11:29 PM PULPWOOD CUTTER TROPONIN I HIGH-SENSITIVITY 2-HOUR Timed 05/05/2023 9:15 PM PULPWOOD CUTTER POC BLOOD GAS AND CHEMISTRIES, ARTERIAL Routine 05/05/2023 9:15 PM PULPWOOD CUTTER TRANSFUSE RED BLOOD CELLS Timed 05/05/2023 8:20 PM PULPWOOD CUTTER PREPARE PLATELETS Timed 05/05/2023 8:1 7 PM PULPWOOD CUTTER APTT STAT 05/05/2023 8:14 PM PULPWOOD CUTTER PROTIME-INR STAT 05/05/2023 8:14 PM PULPWOOD CUTTER PREPARE RBC Timed 05/05/2023 7:56 PM PULPWOOD CUTTER XR CHEST 1 VIEW IP Routine 05/05/2023 7:43 PM PULPWOOD CUTTER TROPONIN I HIGH-SENSITIVITY SERIES (BASELINE, 2HR, 4HR, 6HR) Routine 05/05/2023 7:22 PM PULPWOOD CUTTER POC BLOOD GAS AND CHEMISTRIES, ARTERIAL Routine 05/05/2023 7:22 PM PULPWOOD CUTTER ECG 12-LEAD STAT 05/05/2023 6:56 PM PULPWOOD CUTTER CTA CHEST ABDOMEN PELVIS Critical/Life-T hreatening 05/05/2023 6:28 PM PULPWOOD CUTTER TRANSTHORACIC ECHO (TTE) LIMITED/FOLLOW UP WO DOPPLER/CF WO CONTRAST W BUBBLE Routine 05/05/2023 4:50 PM PULPWOOD CUTTER CRITICAL CARE Routine 05/05/2023 1:24 PM PULPWOOD CUTTER Hypertension, unspecified type PNEUMONIA PCR Routine 05/05/2023 11:27 AM PULPWOOD CUTTER PNEUMONIA PCR WITH AEROBIC CULTURE AND GRAM STAIN Routine 05/05/2023 11:27 AM PULPWOOD CUTTER EXTUBATION Routine 05/05/2023 10:41 AM PULPWOOD CUTTER DE DIAGNOSTIC LUMBAR SPINAL PUNCTURE Routine 05/05/2023 10:05 AM PULPWOOD CUTTER Dissection of aorta, unspecified portion of aorta (HCC) LACTATE Routine 05/05/2023 8:21 AM PULPWOOD CUTTER BLOOD GAS, ARTERIAL STAT 05/05/2023 8 :21 AM PULPWOOD CUTTER POTASSIUM, WHOLE BLOOD STAT 05/05/2023 4:51 AM PULPWOOD CUTTER BLOOD GAS, ARTERIAL STAT 05/05/2023 4 :51 AM PULPWOOD CUTTER EGFR Routine 05/05/2023 12:12 AM PULPWOOD CUTTER CBC WITHOUT DIFFERENTIAL Routine 05/05/2023 12:12 AM PULPWOOD CUTTER PHOSPHORUS Routine 05/05/2023 12:12 AM PULPWOOD CUTTER MAGNESIUM Routine 05/05/2023 12:12 AM PULPWOOD CUTTER BASIC METABOLIC PANEL Routine 05/05/2023 12:12 AM PULPWOOD CUTTER POTASSIUM, WHOLE BLOOD STAT 05/04/2023 10:30 PM PULPWOOD CUTTER TRIGLYCERIDES Timed 05/04/2023 10:30 PM PULPWOOD CUTTER BLOOD GAS, ARTERIAL STAT 05/04/2023 10:30 PM PULPWOOD CUTTER XR CHEST 1 VIEW IP Routine 05/04/2023 8:58 PM PULPWOOD CUTTER POTASSIUM, WHOLE BLOOD STAT 05/04/2023 6:31 PM PULPWOOD CUTTER CRITICAL CARE Routine 05/04/2023 3:00 PM PULPWOOD CUTTER Hypertension, unspecified type POCT GLUCOSE DEVICE Routine 05/04/2023 1 :42 PM PULPWOOD CUTTER RT COMMUNICATION Routine 05/04/2023 1:10 PM PULPWOOD CUTTER POTASSIUM, WHOLE BLOOD STAT 05/04/2023 11:27 AM PULPWOOD CUTTER TYPE AND SCREEN Timed 05/04/2023 11:23 AM PULPWOOD CUTTER BLOOD GAS, ARTERIAL STAT 05/04/2023 11:23 AM PULPWOOD CUTTER POCT GLUCOSE DEVICE Routine 05/04/2023 7 :48 AM PULPWOOD CUTTER POC BLOOD GAS AND CHEMISTRIES, ARTERIAL Routine 05/04/2023 3:03 AM PULPWOOD CUTTER URINALYSIS AND REFLEX TO MICROSCOPIC Routine 05/04/2023 2:14 AM PULPWOOD CUTTER URINALYSIS, MICROSCOPIC ONLY Routine 05/04/2023 2:14 AM [facility] EGFR Routine 05/04/2023 1:20 AM [facility] BLOOD CULTURE Routine 05/04/2023 1:20 AM [facility] BLOOD CULTURE Routine 05/04/2023 1:20 AM [facility] CBC WITHOUT DIFFERENTIAL Routine 05/04/2023 1:20 AM [facility] TRIGLYCERIDES Routine 05/04/2023 1:20 AM [facility] PHOSPHORUS Routine 05/04/2023 1:20 AM [facility] MAGNESIUM Routine 05/04/2023 1:20 AM [facility] BLOOD GAS, ARTERIAL STAT 05/04/2023 1 :20 AM [facility] BASIC METABOLIC PANEL Routine 05/04/2023 1:20 AM [facility] XR CHEST 1 VIEW IP Routine 05/03/2023 10:05 PM [facility] DE INSJ NON-TUNNELED CENTRAL VENOUS CATH AGE 7 YR/> Routine 05/03/2023 9:57 PM [facility] Dissection of aorta, unspecified portion of aorta (HCC) BLOOD GAS, ARTERIAL STAT 05/03/2023 8 :32 PM [facility] POTASSIUM, WHOLE BLOOD STAT 05/03/2023 5:50 PM [facility] BLOOD GAS, ARTERIAL STAT 05/03/2023 5 :50 PM [facility] XR CHEST 1 VIEW IP Routine 05/03/2023 2:54 PM [facility] CRITICAL CARE Routine 05/03/2023 2:29 PM [facility] Hypertension, unspecified type POC BLOOD GAS AND CHEMISTRIES, ARTERIAL Routine 05/03/2023 2:09 PM [facility] TRIGLYCERIDES Routine 05/03/2023 1:12 PM [facility] POC BLOOD GAS AND CHEMISTRIES, ARTERIAL Routine 05/03/2023 11:07 AM [facility] POC BLOOD GAS AND CHEMISTRIES, ARTERIAL Routine 05/03/2023 3:28 AM [facility] LACTATE Routine 05/03/2023 2:08 AM [facility] BLOOD GAS, ARTERIAL Routine 05/03/2023 2 :08 AM [facility] LACTATE STAT 05/03/2023 12:10 AM [facility] EGFR Routine 05/03/2023 12:10 AM [facility] THYROID FUNCTION CASCADE Routine 05/03/2023 12:10 AM [facility] FIBRINOGEN Routine 05/03/2023 12:10 AM [facility] CBC WITHOUT DIFFERENTIAL Routine 05/03/2023 12:10 AM [facility] PHOSPHORUS Routine 05/03/2023 12:10 AM [facility] MAGNESIUM Routine 05/03/2023 12:10 AM [facility] BLOOD GAS, ARTERIAL STAT 05/03/2023 12:10 AM [facility] BASIC METABOLIC PANEL Routine 05/03/2023 12:10 AM [facility] POC BLOOD GAS AND CHEMISTRIES, ARTERIAL Routine 05/02/2023 11:16 PM [facility] XR CHEST 1 VIEW ED Urgent/IP Urgent 05/02/2023 10:54 PM [facility] POC BLOOD GAS AND CHEMISTRIES, ARTERIAL Routine 05/02/2023 10:13 PM [facility] EGFR STAT 05/02/2023 9:55 PM [facility] CALCIUM, IONIZED STAT 05/02/2023 9:55 PM [facility] PHOSPHORUS STAT 05/02/2023 9:55 PM [facility] MAGNESIUM STAT 05/02/2023 9:55 PM [facility] BASIC METABOLIC PANEL STAT 05/02/2023 9:55 PM [facility] CBC WITHOUT DIFFERENTIAL STAT 05/02/2023 9:33 PM [facility] POC BLOOD GAS AND CHEMISTRIES, ARTERIAL Routine 05/02/2023 9:29 PM [facility] CV HYBRID ROOM (DEFAULT ORDERABLE) Routine 05/02/2023 9:20 PM [facility] Dissection of thoracoabdominal aorta (CMS/HCC) (HCC) POCT ACTIVATED CLOTTING TIME, LOW RANGE Routine 05/02/2023 7:26 PM [facility] POCT ACTIVATED CLOTTING TIME, LOW RANGE Routine 05/02/2023 7:01 PM [facility] POCT ACTIVATED CLOTTING TIME, LOW RANGE Routine 05/02/2023 6:27 PM [facility] POCT ACTIVATED CLOTTING TIME, LOW RANGE Routine 05/02/2023 6:02 PM [facility] CRITICAL CARE Routine 05/02/2023 5:26 PM [facility] Dissection of aorta, unspecified portion of aorta (HCC) CAUTERIZATION NASAL SEPTUM 05/02/2023 4:36 PM [facility] Dissection of thoracoabdominal aorta (CMS/HCC) (HCC) PLACEMENT STENT - SUBCLAVIAN ARTERY - HYBRID ROOM 05/02/2023 4:36 PM [facility] Dissection of thoracoabdominal aorta (CMS/HCC) (HCC) LACTATE Timed 05/02/2023 4:00 PM [facility] EGFR Timed 05/02/2023 4:00 PM [facility] CBC WITHOUT DIFFERENTIAL Timed 05/02/2023 4:00 PM [facility] COMPREHENSIVE METABOLIC PANEL Timed 05/02/2023 4:00 PM [facility] TRANSTHORACIC ECHO (TTE) COMPLETE W DOPPLER/CF W CONTRAST STAT 05/02/2023 12:40 PM [facility] PREPARE PLATELETS Timed 05/02/2023 10:34 AM [facility] PREPARE RBC Timed 05/02/2023 10:33 AM [facility] LACTATE Timed 05/02/2023 10:12 AM [facility] EGFR Timed 05/02/2023 10:12 AM [facility] CBC WITHOUT DIFFERENTIAL Timed 05/02/2023 10:12 AM [facility] COMPREHENSIVE METABOLIC PANEL Timed 05/02/2023 10:12 AM [facility] CTA CHEST ABDOMINAL AORTA AND BILATERAL ILIOFEMORAL Critical/Life-T hreatening 05/02/2023 9:47 AM [facility] POCT GLUCOSE DEVICE Routine 05/02/2023 4 :16 AM [facility] LACTATE Timed 05/02/2023 4:10 AM [facility] EGFR Timed 05/02/2023 4:10 AM [facility] CALCIUM, IONIZED Routine 05/02/2023 4:10 AM [facility] PROTIME-INR Routine 05/02/2023 4:10 AM [facility] CBC WITHOUT DIFFERENTIAL Timed 05/02/2023 4:10 AM [facility] COMPREHENSIVE METABOLIC PANEL Timed 05/02/2023 4:10 AM [facility] LACTATE Timed 05/01/2023 11:52 PM [facility] EGFR Timed 05/01/2023 11:52 PM [facility] CBC WITHOUT DIFFERENTIAL Timed 05/01/2023 11:52 PM [facility] COMPREHENSIVE METABOLIC PANEL Timed 05/01/2023 11:52 PM [facility] POC BLOOD GAS AND CHEMISTRIES, ARTERIAL Routine 05/01/2023 11:03 PM [facility] POTASSIUM, WHOLE BLOOD Routine 05/01/2023 7:28 PM [facility] HEPATIC FUNCTION PANEL Routine 05/01/2023 7:28 PM [facility] POCT GLUCOSE DEVICE Routine 05/01/2023 7 :27 PM [facility] XR CHEST 1 VIEW IP Routine 05/01/2023 6:41 PM [facility] EGFR Timed 05/01/2023 5:50 PM [facility] COMPREHENSIVE METABOLIC PANEL Timed 05/01/2023 5:50 PM [facility] POCT GLUCOSE DEVICE Routine 05/01/2023 5 :10 PM [facility] LACTATE, WHOLE BLOOD Timed 05/01/2023 5:10 PM [facility] CBC WITHOUT DIFFERENTIAL Timed 05/01/2023 5:10 PM [facility] SEPSIS LACTATE WITH REFLEX Timed 05/01/2023 1:18 PM [facility] DE CRITICAL CARE ILL/INJURED PATIENT INIT 30-74 MIN Routine 05/01/2023 12:32 PM [facility] TROPONIN I HIGH-SENSITIVITY Routine 05/01/2023 11:40 AM [facility] POCT GLUCOSE DEVICE Routine 05/01/2023 11:40 AM [facility] BLOOD GAS, ARTERIAL STAT 05/01/2023 11:40 AM [facility] CREATINE KINASE (CK), TOTAL STAT 05/01/2023 11:40 AM [facility] SEPSIS LACTATE WITH REFLEX Timed 05/01/2023 10:15 AM [facility] LACTATE Timed 05/01/2023 10:15 AM [facility] EGFR Timed 05/01/2023 10:15 AM [facility] CBC WITHOUT DIFFERENTIAL Timed 05/01/2023 10:15 AM [facility] COMPREHENSIVE METABOLIC PANEL Timed 05/01/2023 10:15 AM [facility] SEPSIS LACTATE WITH REFLEX STAT 05/01/2023 8:13 AM [facility] B CHECK SAMPLE STAT 05/01/2023 8:13 AM [facility] TYPE AND SCREEN STAT 05/01/2023 7:52 AM [facility] DE CRITICAL CARE ILL/INJURED PATIENT INIT 30-74 MIN Routine 05/01/2023 7:[address] BODY OUTSIDE CONSULT Routine 05/01/2023 6:16 AM [facility] XR TRANSFER OF OUTSIDE FILMS Routine 05/01/2023 6:[address] BODY OUTSIDE CONSULT Routine 05/01/2023 6:01 AM [facility] DE ARTL CATHJ/CANNULJ MNTR/TRANSFUSION SPX PRQ Routine 05/01/2023 5:56 AM [facility] FENTANYL CONFIRMATION, MS URINE STAT 05/01/2023 5:19 AM [facility] DRUGS OF ABUSE SCREEN, URINE WITH REFLEX CONFIRMATION STAT 05/01/2023 5:19 AM [facility] EGFR STAT 05/01/2023 5:19 AM [facility] DIFFERENTIAL AUTO STAT 05/01/2023 5:1 9 AM [facility] URINALYSIS AND REFLEX TO MICROSCOPIC AND CULTURE STAT 05/01/2023 5:19 AM [facility] CBC WITH AUTO DIFFERENTIAL STAT 05/01/2023 5:19 AM [facility] URINALYSIS, MICROSCOPIC ONLY STAT 05/01/2023 5:19 AM [facility] APTT Routine 05/01/2023 5:19 AM [facility] PROTIME-INR STAT 05/01/2023 5:19 AM [facility] COMPREHENSIVE METABOLIC PANEL STAT 05/01/2023 5:19 AM [facility] ECG 12-LEAD Routine 05/01/2023 5:15 AM [facility] XR CHEST 1 VIEW ED 05/01/2023 5:14 AM [facility] documented in this encounter Results * CTA Chest Abdomen Pelvis (05/16/2023 10:28 AM [facility]) Anatomical Region Laterality Modality Body N/A Computed Tomogra phy 05/16/2023 1:06 PM [facility] Impressions 05/16/2023 4:50 PM [facility] 1. Redemonstrated findings of type B aortic [...] Timmy Castillo M.D. Narrative 05/16/2023 4:50 PM [facility] EXAMINATION: ??CT ANGIOGRAPHY OF THE CHEST, ABDOMEN [...] l Result * eGFR (05/16/2023 4:03 AM [facility]) eGFR >90 >=60 mL/min/1. [address] [facility] Comment: Interpretive Data Reference Interval Normal [...] last reviewed 2021. Blood 05/16/2023 4:03 AM [facility] 05/16/2023 4:29 AM [facility] Faustino Herrear MD LAB BLOOD ORDERABLES Final Result Performing Organization Address [facility] Co de Phone Number [facility] [place] [address] * Phosphorus (05/16/2023 4:03 AM [facility]) [facility] Phosphorus, pl 4.2 2.3 - 4.5 mg/dL [facility] Blood 05/16/2023 4:03 AM [facility] 05/16/2023 4:29 AM [facility] Faustino Herrera MD LAB BLOOD ORDERABLES Final Result Performing Organization Address [facility] de Phone Number [facility] [place] [address] * Magnesium (05/16/2023 4:03 AM [facility]) Pathologist [facility] Magnesium 2.4 1.4 - 2.5 mg/dL [facility] Blood 05/16/2023 4:03 AM [facility] 05/16/2023 4:29 AM [facility] Faustino Herrera MD LAB BLOOD ORDERABLES Final Result [facility] [place] [address] * Basic metabolic panel (05/16/2023 4:03 AM [facility]) [facility] Sodium 140 135 - 145 mmol/L [facility] Potassium, pl 3.9 3.3 - 4.9 mmol/L [facility] Chloride 104 97 - 110 mmol/L [facility] CO2 23 22 - 32 mmol/L [facility] Anion gap 13 2 - 15 mmol/L [facility] BUN 12 6 - 25 mg/dL [facility] Creatinine 0.90 0.80 - 1.30 mg/dL [facility] Glucose 116 70 - 199 mg/dL [facility] [...] 2022. Calcium 9.0 8.5 - 10.3 mg/dL [facility] Blood 05/16/2023 4:0 3 AM [facility] 05/16/2023 4:29 AM [facility] Faustino Herrera MD LAB BLOOD ORDERABLES Final Result Performing Organization Address [facility]/ZIP Co de Phone Number [facility] [place] [employer] [place] [address] * (ABNORMAL) CBC without differential (05/16/2023 4:03 AM [facility]) WBC 13.3(H) 3.8 - 9.9 K/cumm [facility] Hgb 9.6(L) 13.0 - 17.5 g/dL [facility] Hct 29.9(L) 38.9 - 50.3 % [facility] Plt 714(H) 150 - 400 K/cumm [facility] MPV 9.7 9.1 - 12.3 fL [facility] RBC 3.22(L) 4.30 - 5.80 M/cumm [facility] MCV 92.9 81.3 - 96.4 fL [facility] MCH 29.8 27.1 - 33.3 pg [facility] MCHC 32.1(L) 32.3 - 35.7 g/dL [facility] RDW CV 13.1 11.1 - 14.9 % [facility] RDW SD 44.6 35.7 - 48.1 fL [facility] NRBC abs 0.00 0.00 - 0.01 K/cumm [facility] Blood 05/16/2023 4:03 AM [facility] 05/16/2023 4:29 AM [facility] Faustino Herrera MD LAB BLOOD ORDERABLES Final Result [facility] [place] [employer] [place] [address] * Type and screen (05/15/2023 5:26 AM [facility]) Ellen, indirect Negative ABO Rh A Positive [facility] Blood 05/15/2023 5:26 AM [facility] 05/15/2023 5:26 AM [facility] us Faustino Herrera MD LAB BLOOD BANK TEST ORDERA BLES Final Result Performing Organization Address [facility] Co de Phone Number [facility] Department [place] [address] * (ABNORMAL) CBC without differential (05/15/2023 5:12 AM [facility]) Pathologist [facility] WBC 14.3(H) 3.8 - 9.9 K/cumm [facility] Hgb 9.6(L) 13.0 - 17.5 g/dL [facility] Comment:Consistent with prev ious result. Hct 29.4(L) 38.9 - 50.3 % [facility] Plt 679(H) 150 - 400 K/cumm [facility] MPV 9.3 9.1 - 12.3 fL [facility] RBC 3.21(L) 4.30 - 5.80 M/cumm [facility] MCV 91.6 81.3 - 96.4 fL [facility] MCH 29.9 27.1 - 33.3 pg [facility] MCHC 32.7 32.3 - 35.7 g/dL [facility] RDW CV 13.2 11.1 - 14.9 % [facility] RDW SD 44.7 35.7 - 48.1 fL [facility] NRBC abs 0.00 0.00 - 0.01 K/cumm [facility] Blood 05/15/2023 5:12 AM [facility] 05/15/2023 5:21 AM [facility] us Sonia Clayton MD LAB BLOOD ORDERABLES Final Resul t Performing Organization Address City/[facility]/ZIP Co de Phone Number [facility] [employer] [place] [address] * eGFR (05/15/2023 4:36 AM [facility]) eGFR >90 >=60 mL/min/1. 73 m2 [facility] Comment: Interpretive Data Reference Interval Normal ?>/= [...] last reviewed 2021. Blood 05/15/2023 4:36 AM [facility] 05/15/2023 4:48 AM [facility] us Faustino Herrera MD LAB BLOOD ORDERABLES Final Result Performing Organization Address [facility] Co de Phone Number [facility] Department [place] [address] * Phosphorus (05/15/2023 4:36 AM [facility]) Phosphorus, pl 3.4 2.3 - 4.5 mg/dL [facility] Blood 05/15/2023 4:36 AM [facility] 05/15/2023 4:48 AM [facility] Faustino Herrera MD LAB BLOOD ORDERABLES Final Result Performing Organization Address [facility] de Phone Number [facility] Department [place] [address] * Magnesium (05/15/2023 4:36 AM [facility]) Magnesium 2.5 1.4 - 2.5 mg/dL [facility] Blood 05/15/2023 4:36 AM [facility] 05/15/2023 4:48 AM [facility] Faustino Herrera MD LAB BLOOD ORDERABLES Final Result [facility] [place] [address] * Basic metabolic panel (05/15/2023 4:36 AM [facility]) Pathologist [facility] Sodium 138 135 - 145 mmol/L [facility] Potassium, pl 4.0 3.3 - 4.9 mmol/L [facility] Chloride 103 97 - 110 mmol/L [facility] CO2 22 22 - 32 mmol/L [facility] Anion gap 13 2 - 15 mmol/L [facility] BUN 14 6 - 25 mg/dL [facility] Creatinine 0.86 0.80 - 1.30 mg/dL [facility] Glucose 110 70 - 199 mg/dL [facility] [...] 2022. Calcium 9.1 8.5 - 10.3 mg/dL [facility] Blood 05/15/2023 4:36 AM [facility] 05/15/2023 4:48 AM [facility] Faustino Herrera MD LAB BLOOD ORDERABLES Final Result [facility] Department [place] [address] * (ABNORMAL) CBC without differential (05/15/2023 4:36 AM [facility]) Pathologist [facility] WBC 18.8(H) 3.8 - 9.9 K/cumm [facility] Hgb 6.0(C) 13.0 - 17.5 g/dL [facility] Comment:Critical result call ed to and read back by BASIM DIETZ RN on 05 15 2023 at 0500 to Yolette Braswell. Hct 18.5(L) 38.9 - 50.3 % [facility] Plt 834(H) 150 - 400 K/cumm [facility] MPV 9.6 9.1 - 12.3 fL [facility] RBC 1.98(L) 4.30 - 5.80 M/cumm [facility] MCV 93.4 81.3 - 96.4 fL [facility] MCH 30.3 27.1 - 33.3 pg [facility] MCHC 32.4 32.3 - 35.7 g/dL [facility] RDW CV 13.3 11.1 - 14.9 % [facility] RDW SD 45.4 35.7 - 48.1 fL [facility] NRBC abs 0.00 0.00 - 0.01 K/cumm [facility] Blood 05/15/2023 4:36 AM [facility] 05/15/2023 4:48 AM [facility] Faustino Herrera MD LAB BLOOD ORDERABLES Final Result Performing Organization Address City/[facility]/ZIP Co de Phone Number [facility] Department [place] [address] * eGFR (05/14/2023 6:01 AM [facility]) [facility] eGFR >90 >=60 mL/min/1. 73 m2 [facility] Comment: Interpretive Data Reference Interval Normal ?>/= [...] last reviewed 2021. Blood 05/14/2023 6:01 AM [facility] 05/14/2023 6:19 AM [facility] us Alonzo Duncan MD LAB BLOOD ORDERABLES Fin al Result Performing Organization Address [facility] Co de Phone Number [facility] Department [place] [address] * Phosphorus (05/14/2023 6:01 AM [facility]) Phosphorus, pl 4.0 2.3 - 4.5 mg/dL [facility] Blood 05/14/2023 6:01 AM [facility] 05/14/2023 6:19 AM [facility] us Faustino Hererra MD LAB BLOOD ORDERABLES Final Result Performing Organization Address [facility] de Phone Number [facility] Department [place] [address] * Magnesium (05/14/2023 6:01 AM [facility]) Pathologist [facility] Magnesium 2.3 1.4 - 2.5 mg/dL [facility] Blood 05/14/2023 6:01 AM [facility] 05/14/2023 6:19 AM [facility] Faustino Herrera MD LAB BLOOD ORDERABLES Final Result [facility] [place] [address] * Basic metabolic panel (05/14/2023 6:01 AM [facility]) [facility] Sodium 138 135 - 145 mmol/L [facility] Potassium, pl 3.8 3.3 - 4.9 mmol/L [facility] Chloride 102 97 - 110 mmol/L [facility] CO2 25 22 - 32 mmol/L [facility] Anion gap 11 2 - 15 mmol/L [facility] BUN 15 6 - 25 mg/dL [facility] Creatinine 0.86 0.80 - 1.30 mg/dL [facility] Glucose 123 70 - 199 mg/dL [facility] [...] 2022. Calcium 9.4 8.5 - 10.3 mg/dL [facility] Blood 05/14/2023 6:01 AM [facility] 05/14/2023 6:19 AM [facility] Faustino Herrera MD LAB BLOOD ORDERABLES Final Result [facility] [place] [address] * (ABNORMAL) CBC without differential (05/14/2023 6:01 AM [facility]) WBC 14.5(H) 3.8 - 9.9 K/cumm [facility] Hgb 10.5(L) 13.0 - 17.5 g/dL [facility] Comment: Interpretive Data A reference range for this assay has not been established for patients with an unknown legal sex. Please refer to the laboratory test catalog for established sex-specific reference intervals. Current interpretive data was last revised on 2023. Hct 32.1(L) 38.9 - 50.3 % [facility] Comment: Interpretive Data A reference range for this assay has not been established for patients with an unknown legal sex. Please refer to the laboratory test catalog for established sex-specific reference intervals. Current interpretive data was last revised on 2023. Plt 679(H) 150 - 400 K/cumm [facility] MPV 9.9 9.1 - 12.3 fL [facility] RBC 3.49(L) 4.30 - 5.80 M/cumm [facility] Comment: Interpretive Data A reference range for this assay has not been established for patients with an unknown legal sex. Please refer to the laboratory test catalog for established sex-specific reference intervals. Current interpretive data was last revised on 2023. MCV 92.0 81.3 - 96.4 fL [facility] MCH 30.1 27.1 - 33.3 pg [facility] MCHC 32.7 32.3 - 35.7 g/dL [facility] RDW CV 13.3 11.1 - 14.9 % [facility] RDW SD 45.0 35.7 - 48.1 fL [facility] NRBC abs 0.00 0.00 - 0.01 K/cumm [facility] Blood 05/14/2023 6:01 AM [facility] 05/14/2023 6:20 AM [facility] us Faustino Herrera MD LAB BLOOD ORDERABLES Final Result [facility] [place] [address] * XR Chest 1 View (05/13/2023 7:10 PM [facility]) Anatomical Region Laterality Modality Body, Chest N/A Computed Radiogr aphy 05/14/2023 7:04 AM [facility] Impressions 05/14/2023 7:49 AM [facility] The current study is compared with the [...] Hipolito Mobley M.D. Narrative 05/14/2023 7:49 AM [facility] EXAMINATION: 1 view chest radiograph Procedure Note [...] sult * Critical Care (05/13/2023 12:56 PM [facility]) Narrative Dalton Locke MD - 05/13/2023 12:56 PM [facility] Dalton Locke MD ? 05/13/2023 12:57 PM [...] plan with the patient's team and other medical/applications sales consultant staff. This time was in [...] Final Result * eGFR (05/13/2023 12:10 AM [facility]TER) [facility] eGFR >90 >=60 mL/min/1. 73 m2 [facility] Comment: Interpretive Data Reference Interval Normal ?>/= [...] reviewed 2021. Blood 05/13/2023 12:1 0 AM [facility] 05/13/2023 12:31 AM [facility] Alonzo Duncan MD LAB BLOOD ORDERABLES Fin al Result Performing Organization Address City/[facility] Co de Phone Number [facility] Department [place] [address] * Type and screen (05/13/2023 12:10 AM [facility]) Ellen, indirect Negative ABO Rh A Positive [facility] Blood 05/13/2023 12:1 0 AM [facility] 05/13/2023 12:42 AM [facility] Narrative [facility] - 05/13/2023 1:43 AM [facility]TER Has the patient had Daratumumab or Isatuximab in the past 6 months?->Unknown Faustino Herrera MD LAB BLOOD BANK TEST ORDERA BLES Final Result Performing Organization Address [facility] Co de Phone Number [facility] [place] [address] * aPTT (05/13/2023 12:10 AM [facility] CUTTER) aPTT 33 28 - 38 sec [facility] Comment: Interpretive Data Heparin therapeutic range: 66.0 - 100.0 seconds. Range based on correlation with therapeutic heparin activity range of 0.3 - 0.7 Units/mL. Current interpretive data was last revised on 2023. Blood 05/13/2023 12:1 0 AM [facility]TER 05/13/2023 12:39 AM [facility]TER Faustino Herrera MD LAB BLOOD ORDERABLES Final Result Performing Organization Address [facility] de Phone Number [facility] [place] [address] * (ABNORMAL) Protime-INR (05/13/2023 12:10 AM [facility]) PT 15.5(H) 10.3 - 13.7 sec [facility] INR 1.36(H) 0.90 - 1.20 [facility] Comment: Interpretive data Oral anticoagulant therapeutic ranges: Venous thromboembolism prophylaxis or treatment: 2.0-3.0 CARDIOLOGY Standard range: 2.0-3.0 High-intensity range: 2.5-3.5 Refer to indication-specific guidelines for appropriate target ranges for prosthetic heart valve replacement. Current interpretive data was last revised on 2019. Blood 05/13/2023 12:1 0 AM [facility]TER 05/13/2023 12:39 AM [facility] Faustino Herrera MD LAB BLOOD ORDERABLES Final Result Performing Organization Address [facility] de Phone Number [facility] [place] [place] [address] * Phosphorus (05/13/2023 12:10 AM [facility] CUTTER) Pathologist [facility] Phosphorus, pl 3.3 2.3 - 4.5 mg/dL [facility] Blood 05/13/2023 12:1 0 AM [facility] 05/13/2023 12:31 AM [facility] Faustino Herrera MD LAB BLOOD ORDERABLES Final Result Performing Organization Address [facility] de Phone Number [facility] [place] [place] [address] * Magnesium (05/13/2023 12:10 AM [facility]) Magnesium 2.2 1.4 - 2.5 mg/dL [facility] Blood 05/13/2023 12:1 0 AM [facility] C[facility]TER 05/13/2023 12:31 AM [facility] Faustino Herrera MD LAB BLOOD ORDERABLES Final Result Performing Organization Address City/[facility]/ZIP Co de Phone Number [facility] [place] [address] * Basic metabolic panel (05/13/2023 12:10 AM [facility]) Sodium 137 135 - 145 mmol/L [facility] Potassium, pl 3.8 3.3 - 4.9 mmol/L [facility] Chloride 100 97 - 110 mmol/L [facility] CO2 25 22 - 32 mmol/L [facility] Anion gap 12 2 - 15 mmol/L [facility] BUN 16 6 - 25 mg/dL [facility] Creatinine 0.84 0.80 - 1.30 mg/dL [facility] Glucose 111 70 - 199 mg/dL [facility] [...] 2022. Calcium 9.1 8.5 - 10.3 mg/dL [facility] Blood 05/13/2023 12:1 0 AM [facility] 05/13/2023 12:31 AM [facility] Faustino Herrera MD LAB BLOOD ORDERABLES Final Result Performing Organization Address City/[facility] Co de Phone Number [facility] Department [place] [address] * (ABNORMAL) CBC without differential (05/13/2023 12:10 AM [facility] C[facility]) [facility] WBC 13.2(H) 3.8 - 9.9 K/cumm [facility] Hgb 10.2(L) 13.0 - 17.5 g/dL [facility] Comment: Interpretive Data A reference range for this assay has not been established for patients with an unknown legal sex. Please refer to the laboratory test catalog for established sex-specific reference intervals. Current interpretive data was last revised on 2023. Hct 32.0(L) 38.9 - 50.3 % [facility] Comment: Interpretive Data A reference range for this assay has not been established for patients with an unknown legal sex. Please refer to the laboratory test catalog for established sex-specific reference intervals. Current interpretive data was last revised on 2023. Plt 550(H) 150 - 400 K/cumm [facility] MPV 9.7 9.1 - 12.3 fL [facility] RBC 3.50(L) 4.30 - 5.80 M/cumm [facility] Comment: Interpretive Data A reference range for this assay has not been established for patients with an unknown legal sex. Please refer to the laboratory test catalog for established sex-specific reference intervals. Current interpretive data was last revised on 2023. MCV 91.4 81.3 - 96.4 fL [facility] MCH 29.1 27.1 - 33.3 pg [facility] MCHC 31.9(L) 32.3 - 35.7 g/dL [facility] RDW CV 13.2 11.1 - 14.9 % [facility] RDW SD 44.3 35.7 - 48.1 fL [facility] NRBC abs 0.00 0.00 - 0.01 K/cumm [facility] Blood 05/13/2023 12:1 0 AM [facility] 05/13/2023 12:31 AM [facility] Faustino Herrera MD LAB BLOOD ORDERABLES Final Result [facility] [place] [address] * XR Chest 1 View (05/12/2023 7:27 PM PUL[facility]WO[facility] CUTTER) Anatomical Region Laterality Modality Body, Chest N/A Digital Radiogra phy 05/13/2023 6:11 AM [facility] C[facility]TER Impressions 05/13/2023 6:11 AM [facility] C[facility]TER Comparison is made to 2023. ??The right jugular catheter is been removed. ??There is an aortic stent graft. Atelectasis is seen within the left lung base. ??No pulmonary edema. No pleural effusion or pneumothorax. ??No pneumonic consolidation. Stable heart size. Electronically signed by: Gen Baker M.D. Narrative 05/13/2023 6:11 AM [facility] EXAMINATION: 1 view chest radiograph Procedure Note [...] sult * Critical Care (05/12/2023 4:16 PM P[facility] C[facility]TER) Narrative Dalton Locke MD - 05/12/2023 4:16 PM [facility]TER Dalton Locke MD ? 05/12/2023 ??4:16 PM Critical Care Performed by: Dalton Locek MD Authorized by: Dalton Locke MD ?? [...] plan with the patient's team and other medical/applications sales consultant staff. This time was in [...] (ABNORMAL) CBC without differential (05/12/2023 1:58 PM [facility] C[facility]TER) [facility] WBC 13.0(H) 3.8 - 9.9 K/cumm [facility] Hgb 9.5(L) 13.0 - 17.5 g/dL [facility] Comment: Interpretive Data A reference range for this assay has not been established for patients with an unknown legal sex. Please refer to the laboratory test catalog for established sex-specific reference intervals. Current interpretive data was last revised on 2023. Hct 29.0(L) 38.9 - 50.3 % [facility] Comment: Interpretive Data A reference range for this assay has not been established for patients with an unknown legal sex. Please refer to the laboratory test catalog for established sex-specific reference intervals. Current interpretive data was last revised on 2023. Plt 478(H) 150 - 400 K/cumm [facility] MPV 9.7 9.1 - 12.3 fL [facility] RBC 3.18(L) 4.30 - 5.80 M/cumm [facility] Comment: Interpretive Data A reference range for this assay has not been established for patients with an unknown legal sex. Please refer to the laboratory test catalog for established sex-specific reference intervals. Current interpretive data was last revised on 2023. MCV 91.2 81.3 - 96.4 fL [facility] MCH 29.9 27.1 - 33.3 pg [facility] MCHC 32.8 32.3 - 35.7 g/dL [facility] RDW CV 13.2 11.1 - 14.9 % [facility] RDW SD 44.2 35.7 - 48.1 fL [facility] NRBC abs 0.00 0.00 - 0.01 K/cumm [facility] Blood 05/12/2023 1:58 PM [facility] C[facility] 05/12/2023 2:18 PM [facility] Dustin Souza DO LAB BLOOD ORDERABLES F inal Result Performing Organization Address [facility] de Phone Number [facility] [place] [place] [address] * Transfuse RBC (05/12/2023 11:13 AM P[facility] C[facility]TER) Blood Faustino Herrera MD BLOOD TRANSFUSION ORDERABL ES Final Result Performing Organization Address [facility] de Phone Number [facility] [place] [place] [address] * Transfuse RBC: 1 Units (05/12/2023 11:13 AM P[facility] C[facility]TER) Blood Faustino Herrera MD BLOOD TRANSFUSION ORDERABL ES Final Result * POCT glucose (05/12/2023 8:50 AM P[facility] C[facility]TER) Glucose, POC 117 70 - 199 mg/dL [facility] Blood 05/12/2023 8:50 AM [facility] C[facility]TER 05/12/2023 8:50 AM [facility] Faustino Herrera MD LAB POCT ORDERABLES - ROSIE CE Final Result Performing Organization Address [facility] de Phone Number [facility] [place] [place] [address] * Prepare RBC: 1 Units (05/12/2023 7:40 AM P[facility] C[facility]TER) Product code [id number] Unit Number [id number] [facility] Product Blood Type ANEG [facility] Dispense Status PRESUMED TRANSFUSED [facility] Blood 05/12/2023 7:40 AM [facility] C[facility]TER 05/12/2023 7:40 AM [facility] Narrative [facility] - 05/12/2023 4:02 PM [facility] Other indication->Hgb goal >10 per vasc Are special requirements needed? (All products are leukoreduced and CMV- safe)- >No Date required:-[id number] LRRBC # of [id number] Reasons:-Other (specify)} Faustino Herrera MD BLOOD BANK PRODUCT ORDERAB LES Final Result [facility] [place] [address] * eGFR (05/12/2023 12:12 AM P[facility] C[facility]TER) [facility] eGFR >90 >=60 mL/min/1. 73 m2 [facility] Comment: Interpretive Data Reference Interval Normal ?>/= [...] reviewed 2021. Blood 05/12/2023 12:1 2 AM [facility] C[facility]TER 05/12/2023 12:39 AM [facility] C[facility]TER us Alonzo Duncan MD LAB BLOOD ORDERABLES Fin al Result Performing Organization Address City/[facility] Co de Phone Number [facility] [place] [address] * Potassium, whole blood (05/12/2023 12:12 AM P[facility] C[facility]TER) Potassium, bld 4.1 3.3 - 4.9 mmol/L [facility] Blood 05/12/2023 12:1 2 AM [facility] C[facility]TER 05/12/2023 12:35 AM [facility] C[facility]TER us Anderson Tolentino Jr., TREE LAB BLOOD ORDERABLE S Final Result Performing Organization Address [facility] de Phone Number [facility] [place] [place] [address] * (ABNORMAL) Triglycerides (05/12/2023 12:12 AM P[facility] C[facility]TER) Triglycerides 183(H) <=149 mg/dL [facility] Comment: Interpretive Data Ages < or = [...] on 2018. Blood 05/12/2023 12:1 2 AM [facility] C[facility]TER 05/12/2023 12:39 AM [facility]TER Faustino Herrera MD LAB BLOOD ORDERABLES Final Result Performing Organization Address [facility] de Phone Number [facility] [place] [place] [address] * aPTT (05/12/2023 12:12 AM P[facility] C[facility]TER) aPTT 28 28 - 38 sec [facility] Comment: Interpretive Data Heparin therapeutic range: 66.0 - 100.0 seconds. Range based on correlation with therapeutic heparin activity range of 0.3 - 0.7 Units/mL. Current interpretive data was last revised on 2023. Blood 05/12/2023 12:1 2 AM [facility] C[facility]TER 05/12/2023 12:39 AM [facility] C[facility]TER Faustino Herrera MD LAB BLOOD ORDERABLES Final Result Performing Organization Address [facility] de Phone Number [facility] [place] [place] [address] * (ABNORMAL) Protime-INR (05/12/2023 12:12 AM P[facility] C[facility]TER) PT 15.3(H) 10.3 - 13.7 sec [facility] INR 1.34(H) 0.90 - 1.20 [facility] Comment: Interpretive data Oral anticoagulant therapeutic ranges: Venous thromboembolism prophylaxis or treatment: 2.0-3.0 CARDIOLOGY Standard range: 2.0-3.0 High-intensity range: 2.5-3.5 Refer to indication-specific guidelines for appropriate target ranges for prosthetic heart valve replacement. Current interpretive data was last revised on 2019. Blood 05/12/2023 12:1 2 AM P[facility] C[facility]TER 05/12/2023 12:39 AM [facility] C[facility]TER Faustino Herrera MD LAB BLOOD ORDERABLES Final Result Performing Organization Address City/[facility]/ZIP Co de Phone Number [facility] [place] [place] [address] * Phosphorus (05/12/2023 12:12 AM P[facility] CUTTER) Pathologist [facility] Phosphorus, pl 2.6 2.3 - 4.5 mg/dL [facility] Blood 05/12/2023 12:1 2 AM [facility] C[facility]TER 05/12/2023 12:39 AM [facility] C[facility]TER Faustino Herrera MD LAB BLOOD ORDERABLES Final Result Performing Organization Address [facility] Co de Phone Number [facility] [employer] [place] [address] * Magnesium (05/12/2023 12:12 AM P[facility] CUTTER) Pathologist [facility] Magnesium 2.3 1.4 - 2.5 mg/dL [facility] Blood 05/12/2023 12:1 2 AM [facility] C[facility]TER 05/12/2023 12:39 AM [facility] C[facility]TER Faustino Herrera MD LAB BLOOD ORDERABLES Final Result Performing Organization Address City/[facility] [place] [address] * Basic metabolic panel (05/12/2023 12:12 AM P[facility] C[facility]TER) Sodium 136 135 - 145 mmol/L [facility] Potassium, pl 4.2 3.3 - 4.9 mmol/L [facility] Chloride 102 97 - 110 mmol/L [facility] CO2 24 22 - 32 mmol/L [facility] Anion gap 10 2 - 15 mmol/L [facility] BUN 19 6 - 25 mg/dL [facility] Creatinine 0.96 0.80 - 1.30 mg/dL [facility] Glucose 113 70 - 199 mg/dL [facility] [...] 2022. Calcium 8.8 8.5 - 10.3 mg/dL [facility] Blood 05/12/2023 12:1 2 AM [facility] C[facility]TER 05/12/2023 12:39 AM [facility] C[facility]TER Faustino Herrera MD LAB BLOOD ORDERABLES Final Result [facility] [place] [address] * (ABNORMAL) CBC without differential (05/12/2023 12:12 AM P[facility]WOOD CUTTER) [facility] WBC 13.6(H) 3.8 - 9.9 K/cumm [facility] Hgb 8.6(L) 13.0 - 17.5 g/dL [facility] Comment: Interpretive Data A reference range for this assay has not been established for patients with an unknown legal sex. Please refer to the laboratory test catalog for established sex-specific reference intervals. Current interpretive data was last revised on 2023. Hct 25.9(L) 38.9 - 50.3 % [facility] Comment: Interpretive Data A reference range for this assay has not been established for patients with an unknown legal sex. Please refer to the laboratory test catalog for established sex-specific reference intervals. Current interpretive data was last revised on 2023. Plt 483(H) 150 - 400 K/cumm [facility] MPV 9.6 9.1 - 12.3 fL [facility] RBC 2.82(L) 4.30 - 5.80 M/cumm [facility] Comment: Interpretive Data A reference range for this assay has not been established for patients with an unknown legal sex. Please refer to the laboratory test catalog for established sex-specific reference intervals. Current interpretive data was last revised on 2023. MCV 91.8 81.3 - 96.4 fL [facility] MCH 30.5 27.1 - 33.3 pg [facility] MCHC 33.2 32.3 - 35.7 g/dL [facility] RDW CV 13.5 11.1 - 14.9 % [facility] RDW SD 45.5 35.7 - 48.1 fL [facility] NRBC abs 0.00 0.00 - 0.01 K/cumm [facility] Blood 05/12/2023 12:1 2 AM [facility] C[facility]TER 05/12/2023 12:38 AM [facility] C[facility]TER Faustino Herrera MD LAB BLOOD ORDERABLES Final Result [facility] [place] [address] * XR Chest 1 View (2023 8:01 PM PUL[facility]WO[facility] CUTTER) Anatomical Region Laterality Modality Body, Chest N/A Computed Radiogr aphy 05/12/2023 9:23 AM P[facility] C[facility]TER Impressions 05/12/2023 9:46 AM [facility] C[facility]TER The current study is compared with the [...] Kamaljit Wheeler M.D. Narrative 05/12/2023 9:46 AM P[facility] C[facility]TER EXAMINATION: 1 view chest radiograph Procedure Note [...] sult * Critical Care (2023 4:16 PM P[facility] C[facility]TER) Narrative Dalton Locke MD - 2023 4:16 PM [facility] C[facility]TER Dalton Locke MD ? 05/12/2023 ??4:16 PM [...] plan with the patient's team and other medical/applications sales consultant staff. This time was in [...] CTA Chest Abdomen Pelvis (2023 11:16 AM PUL[facility] CUTTER) Anatomical Region Laterality Modality Body N/A Computed Tomogra phy 2023 11:5 7 AM P[facility] C[facility]TER Impressions 2023 8:24 PM P[facility] CUTTER 1. ??Residual type B thoracoabdominal aortic dissection [...] Monster Easley M.D. Narrative 2023 8:24 PM PULP[facility] C[facility]TER EXAMINATION: CT ANGIOGRAPHY OF THE CHEST, ABDOMEN [...] Re sult * eGFR (2023 12:14 AM PUL[facility]WOOD CUTTER) eGFR 80 >=60 mL/min/1. 73 m2 [facility] Comment: Interpretive Data Reference Interval Normal ?>/= [...] reviewed 2021. Blood 2023 12:1 4 AM P[facility] CUTTER 2023 12:31 AM P[facility] C[facility]TER us Alonzo Duncan MD LAB BLOOD ORDERABLES Fin al Result [facility] [place] [address] * (ABNORMAL) Blood gas, arterial (2023 12:14 AM PULPWO[facility] CUTTER) pH, Art 7.43 7.35 - 7.45 [facility] PCO2, Arterial 34(L) 35 - 45 mmHg [facility] PO2, Arterial 110(H) 83 - 108 mmHg [facility] HCO3 Art (Calculated) 23 20 - 30 mmol/L [facility] BE, art -1 mmol/L [facility] Comment: Interpretive Data No Reference Range Established Current Interpretive Data was last revised on 2017 O2 Sat Art (Measured) 98(H) 90 - 95 % [facility] Blood 2023 12:1 4 AM P[facility]WOOD CUTTER 2023 12:28 AM [facility] C[facility]TER Faustino Herrera MD LAB BLOOD ORDERABLES Final Result Performing Organization Address [facility] Co de Phone Number [facility] [place] [place] [address] * Potassium, whole blood (2023 12:14 AM PUL[facility]WOOD CUTTER) Potassium, bld 4.0 3.3 - 4.9 mmol/L [facility] Blood 2023 12:1 4 AM PULPWO[facility] CUTTER 2023 12:28 AM PULPWOOD CUTTER Result [facility] Anderson Tolentino Jr., TREE LAB BLOOD ORDERABLE S Final Result Performing Organization Address [facility] de Phone Number [facility] [place] [address] * aPTT (2023 12:14 AM PULPWOOD CUTTER) aPTT 36 28 - 38 sec [facility] Comment: Interpretive Data Heparin therapeutic range: 66.0 - 100.0 seconds. Range based on correlation with therapeutic heparin activity range of 0.3 - 0.7 Units/mL. Current interpretive data was last revised on 2023. Blood 2023 12:1 4 AM P[facility]WOOD CUTTER 2023 12:41 AM P[facility]WO[facility] CUTTER Faustino Herrera MD LAB BLOOD ORDERABLES Final Result Performing Organization Address [facility] Co de Phone Number [facility] [place] [address] * (ABNORMAL) Protime-INR (2023 12:14 AM PULPWOOD CUTTER) PT 15.8(H) 10.3 - 13.7 sec [facility] INR 1.39(H) 0.90 - 1.20 [facility] Comment: Interpretive data Oral anticoagulant therapeutic ranges: Venous thromboembolism prophylaxis or treatment: 2.0-3.0 CARDIOLOGY Standard range: 2.0-3.0 High-intensity range: 2.5-3.5 Refer to indication-specific guidelines for appropriate target ranges for prosthetic heart valve replacement. Current interpretive data was last revised on 2019. Blood 2023 12:1 4 AM P[facility]PWOOD CUTTER 2023 12:41 AM P[facility] C[facility]TER Faustino Herrera MD LAB BLOOD ORDERABLES Final Result Performing Organization Address City/[facility]/ZIP Co de Phone Number [facility] [place] [place] [address] * (ABNORMAL) Phosphorus (2023 12:14 AM PULPWOOD CUTTER) Pathologist [facility] Phosphorus, pl 2.0(L) 2.3 - 4.5 mg/dL [facility] Blood 2023 12:1 4 AM P[facility]WOOD CUTTER 2023 12:31 AM P[facility] CUTTER Faustino Herrera MD LAB BLOOD [place] [address] * Magnesium (2023 12:14 AM PULPWOOD CUTTER) Pathologist [facility] Magnesium 2.4 1.4 - 2.5 mg/dL [facility] Blood 2023 12:1 4 AM P[facility]WO[facility] CUTTER 2023 12:31 AM [facility] C[facility]TER Faustino Herrera MD LAB BLOOD ORDERABLES Final Result [facility] [place] [address] * Basic metabolic panel (2023 12:14 AM PULPWOOD CUTTER) Sodium 136 135 - 145 mmol/L [facility] Potassium, pl 4.1 3.3 - 4.9 mmol/L [facility] Chloride 100 97 - 110 mmol/L [facility] CO2 23 22 - 32 mmol/L [facility] Anion gap 13 2 - 15 mmol/L [facility] BUN 23 6 - 25 mg/dL [facility] Creatinine 1.24 0.80 - 1.30 mg/dL [facility] Glucose 121 70 - 199 mg/dL [facility] [...] 2022. Calcium 8.9 8.5 - 10.3 mg/dL [facility] Blood 2023 12:1 4 AM PULPWOOD CUTTER 2023 12:31 AM P[facility] C[facility]TER Faustino Herrera MD LAB BLOOD ORDERABLES Final Result Performing Organization Address City/[facility]/ZIP Co de Phone Number [facility] [place] [address] * (ABNORMAL) CBC without differential (2023 12:14 AM PULPWOOD CUTTER) WBC 17.6(H) 3.8 - 9.9 K/cumm [facility] Hgb 8.7(L) 13.0 - 17.5 g/dL [facility] Comment: Interpretive Data A reference range for this assay has not been established for patients with an unknown legal sex. Please refer to the laboratory test catalog for established sex-specific reference intervals. Current interpretive data was last revised on 2023. Hct 26.5(L) 38.9 - 50.3 % [facility] Comment: Interpretive Data A reference range for this assay has not been established for patients with an unknown legal sex. Please refer to the laboratory test catalog for established sex-specific reference intervals. Current interpretive data was last revised on 2023. Plt 411(H) 150 - 400 K/cumm [facility] MPV 9.6 9.1 - 12.3 fL [facility] RBC 2.93(L) 4.30 - 5.80 M/cumm [facility] Comment: Interpretive Data A reference range for this assay has not been established for patients with an unknown legal sex. Please refer to the laboratory test catalog for established sex-specific reference intervals. Current interpretive data was last revised on 2023. MCV 90.4 81.3 - 96.4 fL [facility] MCH 29.7 27.1 - 33.3 pg [facility] MCHC 32.8 32.3 - 35.7 g/dL [facility] RDW CV 13.5 11.1 - 14.9 % [facility] RDW SD 45.0 35.7 - 48.1 fL [facility] NRBC abs 0.02(H) 0.00 - 0.01 K/cumm [facility] Blood 2023 12:1 4 AM P[facility]PWOOD CUTTER 2023 12:31 AM P[facility]WO[facility] CUTTER us Faustino Herrera MD LAB BLOOD ORDERABLES Final Result [facility] [place] [address] * XR Chest 1 View (05/10/2023 9:50 PM PULPWOOD CUTTER) Anatomical Region Laterality Modality Body, Chest N/A Computed Radiogr aphy 2023 9:17 AM P[facility]WO[facility] C[facility]TER Impressions 2023 9:27 AM [facility] C[facility]TER The current study is compared with the [...] Chung Boone M.D. Narrative 2023 9:27 AM [facility]WO[facility] C[facility]TER EXAMINATION: 1 view chest radiograph Procedure Note [...] * ECG 12 lead (05/10/2023 6:19 PM PUL[facility]WOOD CUTTER) Ventricular Rate EKG/Min 119 BPM [facility] Atrial Rate 119 BPM [facility] DE-Interval (MSEC) 138 ms [facility] QRS-Interval (MSEC) 88 ms [facility] QT-Interval (MSEC) 322 ms [facility] QTc 452 ms [facility] P [place] 39 degrees [facility] R [place] -5 degrees [facility] T [place] 42 degrees [facility] Diagnosis Poor data quality, interpretation [...] Lateral leads Confirmed by ADAM VALVERDE M.D ([id number]) on 2023 11:47:49 AM [facility] 05/10/2023 6:19 PM P[facility] CUTTER 2023 11:47 AM P[facility]WO[facility] CUTTER Faustino Herrera MD ECG ORDERABLES Final Resu lt Performing Organization Address City/[facility] Co de Phone Number [facility] * Lidocaine level (05/10/2023 4:59 PM PULPWOOD CUTTER) Lidocaine (Xylocaine) 3.8 1.5 - 5.0 mcg/mL [facility] Blood 05/10/2023 4:59 PM P[facility]WO[facility] C[facility]TER 05/10/2023 5:09 PM [facility] C[facility]TER Faustino Herrera MD LAB BLOOD ORDERABLES Final Result Performing Organization Address City/[facility] Co de Phone Number [facility] [place] [address] * Critical Care (05/10/2023 4:14 PM PULPWOOD CUTTER) Narrative Dalton Locke MD - 05/10/2023 4:14 PM [facility]WOOD C[facility]TER Dalton Locke MD ? 05/12/2023 ??4:16 PM [...] plan with the ICU team and other medical/applications sales consultant staff, making frequent assessments and [...] * Blood culture Blood (05/10/2023 12:57 PM PULPWOOD CUTTER) Report Final Report: No growth [facility] Blood 05/10/2023 12:5 7 PM [facility] C[facility]TER 05/10/2023 2:14 PM [facility] C[facility]TER Narrative [facility] - 05/14/2023 4:00 PM [facility] C[facility]TER Collection->Peripheral 1. ?Blood cultures are incubated for [...] organism identification may be performed using the Ravtiigene Gram-Positive Blood Culture Assay. This assay detects microbial DNA in positive blood culture broth via hybridization of target DNA to capture oligonucleotides on a microarray. This assay has been cleared by the [place] Food and Drug Administration and its performance characteristics have been verified by the [facility]. 5. ?For questions about this culture, contact the Microbiology Laboratory at [phone]. Interpretive data was last revised on 2019. Marina Cordova NP LAB MICROBIOLOGY - GENERAL ORDERABLES Final Result [facility] [place] [address] * Blood culture Blood (05/10/2023 12:57 PM PULPWOOD CUTTER) Report Final Report: No growth [facility] Blood 05/10/2023 12:5 7 PM PUL[facility]WOOD CUTTER 05/10/2023 2:14 PM PULPWOOD CUTTER Narrative [facility] - 05/14/2023 4:00 PM P[facility]WO[facility] C[facility]TER Collection->Peripheral 1. ?Blood cultures are incubated for [...] organism identification may be performed using the Ravtiigene Gram-Positive Blood Culture Assay. This assay detects microbial DNA in positive blood culture broth via hybridization of target DNA to capture oligonucleotides on a microarray. This assay has been cleared by the [place] Food and Drug Administration and its performance characteristics have been verified by the [facility]. 5. ?For questions about this culture, contact the Microbiology Laboratory at [phone]. Interpretive data was last revised on 2019. Marina Corodva NP LAB MICROBIOLOGY - GENERAL ORDERABLES Final Result Performing Organization Address [facility] Co de Phone Number [facility] Department [place] [employer] [place] [address] * Hepatic function panel (05/10/2023 12:37 AM PULPWOOD CUTTER) Pathologist [facility] Bilirubin, total 0.7 0.1 - 1.2 mg/dL [facility] Bilirubin, direct 0.3 0.1 - 0.3 mg/dL [facility] Protein, pl 8.0 6.5 - 8.5 g/dL [facility] Albumin 3.7 3.5 - 5.0 g/dL [facility] Alk phos 88 40 - 130 Units/L [facility] SYSTEMS ALT 28 7 - 55 Units/L [facility] AST 30 10 - 50 Units/L [facility] Blood 05/10/2023 12:3 7 AM [facility]WOOD CUTTER 05/10/2023 12:48 AM P[facility]WOOD CUTTER Faustino Herrera MD LAB BLOOD ORDERABLES Final Result Performing Organization Address [facility]/ZIP Co de Phone Number [facility] Department [place] [employer] [place] [place] [address] * eGFR (05/10/2023 12:37 AM PULPWOOD CUTTER) eGFR >90 >=60 mL/min/1. 73 m2 [facility] Comment: Interpretive Data Reference Interval Normal ?>/= [...] reviewed 2021. Blood 05/10/2023 12:3 7 AM P[facility]PWOOD CUTTER 05/10/2023 12:48 AM PULPWOOD CUTTER us Alonzo Duncan MD LAB BLOOD ORDERABLES Fin al Result Performing Organization Address City/State/[facility] Phone Number [facility] [place] [address] * (ABNORMAL) Blood gas, arterial (05/10/2023 12:37 AM PULPWOOD CUTTER) Pathologist [facility] pH, Art 7.41 7.35 - 7.45 [facility] PCO2, Arterial 34(L) 35 - 45 mmHg [facility] PO2, Arterial 131(H) 83 - 108 mmHg [facility] HCO3 Art (Calculated) 22 20 - 30 mmol/L [facility] BE, art -3 mmol/L [facility] Comment: Interpretive Data No Reference Range Established Current Interpretive Data was last revised on 2017 O2 Sat Art (Measured) 99(H) 90 - 95 % [facility] Blood 05/10/2023 12:3 7 AM P[facility]WOOD CUTTER 05/10/2023 12:40 AM P[facility]PWOOD CUTTER us Faustino Herrera MD LAB BLOOD ORDERABLES Final Result Performing Organization Address [facility] Co de Phone Number [facility] [place] [place] [address] * (ABNORMAL) Lactate (05/10/2023 12:37 AM PULPWOOD CUTTER) Lactate 0.6(L) 0.7 - 2.0 mmol/L [facility] Blood 05/10/2023 12:3 7 AM P[facility]PWOOD CUTTER 05/10/2023 12:47 AM P[facility]PWOOD CUTTER us Alonzo Dnucan MD LAB BLOOD ORDERABLES Fin al Result Performing Organization Address [facility] Co de Phone Number [facility] [place] [address] * Potassium, whole blood (05/10/2023 12:37 AM PULPWOOD CUTTER) Potassium, bld 4.1 3.3 - 4.9 mmol/L [facility] Blood 05/10/2023 12:3 7 AM P[facility]PWOOD CUTTER 05/10/2023 12:40 AM PULPWOOD CUTTER us Anderson Tolentino Jr., HEARING HEALTH TECHNICIAN LAB BLOOD ORDERABLE S Edited Result - Final Performing Organization Address [facility] Co de Phone Number [facility] [employer] [place] [address] * Type and screen (05/10/2023 12:37 AM PULPWOOD CUTTER) ABO Rh A Positive Ellen, indirect Negative [facility] Blood 05/10/2023 12:3 7 AM PULPWOOD CUTTER 05/10/2023 12:41 AM P[facility] CUTTER Narrative [facility] - 05/10/2023 1:24 AM P[facility]OD CUTTER Has the patient had Daratumumab or Isatuximab in the past 6 months?->Unknown Faustino Herrera MD LAB BLOOD BANK TEST ORDERA BLES Final Result Performing Organization Address [facility] de Phone Number [facility] [employer] [place] [address] * aPTT (05/10/2023 12:37 AM PULPWOOD CUTTER) aPTT 32 28 - 38 sec [facility] Comment: Interpretive Data Heparin therapeutic range: 66.0 - 100.0 seconds. Range based on correlation with therapeutic heparin activity range of 0.3 - 0.7 Units/mL. Current interpretive data was last revised on 2023. Blood 05/10/2023 12:3 7 AM PULPWOOD CUTTER 05/10/2023 12:53 AM P[facility]OD CUTTER Faustino Herrera MD LAB BLOOD ORDERABLES Final Result Performing Organization Address [facility] [place] [address] * (ABNORMAL) Protime-INR (05/10/2023 12:37 AM PULPWOOD CUTTER) PT 15.8(H) 10.3 - 13.7 sec [facility] INR 1.39(H) 0.90 - 1.20 [facility] Comment: Interpretive data Oral anticoagulant therapeutic ranges: Venous thromboembolism prophylaxis or treatment: 2.0-3.0 CARDIOLOGY Standard range: 2.0-3.0 High-intensity range: 2.5-3.5 Refer to indication-specific guidelines for appropriate target ranges for prosthetic heart valve replacement. Current interpretive data was last revised on 2019. Blood 05/10/2023 12:3 7 AM PULPWOOD CUTTER 05/10/2023 12:53 AM P[facility]PWOOD CUTTER Faustino Herrera MD LAB BLOOD ORDERABLES Final Result Performing Organization Address City/[facility] Co de Phone Number [facility] [place] [employer] [place] [address] * Phosphorus (05/10/2023 12:37 AM PULPWOOD CUTTER) Pathologist [facility] Phosphorus, pl 3.2 2.3 - 4.5 mg/dL [facility] Blood 05/10/2023 12:3 7 AM PULPWOOD CUTTER 05/10/2023 12:48 AM P[facility] CUTTER Faustino Herrera MD LAB BLOOD ORDERABLES Final Result Performing Organization Address [facility] de Phone Number [facility] [employer] [place] [address] * (ABNORMAL) Magnesium (05/10/2023 12:37 AM PULPWOOD CUTTER) [facility] Magnesium 2.7(H) 1.4 - 2.5 mg/dL [facility] Blood 05/10/2023 12:3 7 AM PULPWOOD CUTTER 05/10/2023 12:48 AM P[facility]WOOD CUTTER Faustino Herrera MD LAB BLOOD ORDERABLES Final Result Performing Organization Address [facility] de Phone Number [facility] [place] [employer] [place] [place] [address] * (ABNORMAL) Basic metabolic panel (05/10/2023 12:37 AM PULPWOOD CUTTER) [facility] Sodium 134(L) 135 - 145 mmol/L [facility] Potassium, pl 4.1 3.3 - 4.9 mmol/L [facility] Chloride 100 97 - 110 mmol/L [facility] CO2 23 22 - 32 mmol/L [facility] Anion gap 11 2 - 15 mmol/L [facility] BUN 18 6 - 25 mg/dL [facility] Creatinine 0.90 0.80 - 1.30 mg/dL [facility] Glucose 128 70 - 199 mg/dL [facility] [...] 2022. Calcium 9.1 8.5 - 10.3 mg/dL [facility] Blood 05/10/2023 12:3 7 AM PULPWOOD CUTTER 05/10/2023 12:48 AM PULPWOOD CUTTER Faustino Herrera MD LAB BLOOD ORDERABLES Final Result [facility] [place] [address] * (ABNORMAL) CBC without differential (05/10/2023 12:37 AM PULPWOOD CUTTER) [facility] WBC 18.7(H) 3.8 - 9.9 K/cumm [facility] Hgb 9.9(L) 13.0 - 17.5 g/dL [facility] Comment: Interpretive Data A reference range for this assay has not been established for patients with an unknown legal sex. Please refer to the laboratory test catalog for established sex-specific reference intervals. Current interpretive data was last revised on 2023. Hct 29.9(L) 38.9 - 50.3 % [facility] Comment: Interpretive Data A reference range for this assay has not been established for patients with an unknown legal sex. Please refer to the laboratory test catalog for established sex-specific reference intervals. Current interpretive data was last revised on 2023. Plt 390 150 - 400 K/cumm [facility] MPV 9.4 9.1 - 12.3 fL [facility] RBC 3.35(L) 4.30 - 5.80 M/cumm [facility] Comment: Interpretive Data A reference range for this assay has not been established for patients with an unknown legal sex. Please refer to the laboratory test catalog for established sex-specific reference intervals. Current interpretive data was last revised on 2023. MCV 89.3 81.3 - 96.4 fL [facility] MCH 29.6 27.1 - 33.3 pg [facility] MCHC 33.1 32.3 - 35.7 g/dL [facility] RDW CV 13.2 11.1 - 14.9 % [facility] RDW SD 43.5 35.7 - 48.1 fL [facility] NRBC abs 0.00 0.00 - 0.01 K/cumm [facility] Blood 05/10/2023 12:3 7 AM PULPWOOD CUTTER 05/10/2023 12:48 AM P[facility]WOOD CUTTER Faustino Herrera MD LAB BLOOD ORDERABLES Final Result Performing Organization Address City/[facility]/ZIP Co de Phone Number [facility] [place] [employer] [place] [place] [address] * POCT glucose (05/10/2023 12:16 AM PULPWOOD CUTTER) Glucose, POC 129 70 - 199 mg/dL [facility] Blood 05/10/2023 12:1 6 AM PULPWOOD CUTTER 05/10/2023 12:16 AM PULPWOOD CUTTER Faustino Herrera MD LAB POCT ORDERABLES - ROSIE CE Final Result Performing Organization Address City/[facility]/ZIP Co de Phone Number [facility] [employer] [place] [address] * Oxyhemoglobin, central venous (05/09/2023 11:35 PM PULPWOOD CUTTER) Oxyhemoglobin, CV 72.4 % [facility] Comment: Interpretive Data No reference range established. Current interpretive data was last revised 2019. Blood 05/09/2023 11:3 5 PM PULPWOOD CUTTER 05/09/2023 11:45 PM PULPWOOD CUTTER us Anderson Tolentino Jr., NP LAB BLOOD ORDERABLE S Final Result [facility] [place] [address] * XR Chest 1 View (05/09/2023 9:29 PM PULPWOOD CUTTER) Anatomical Region Laterality Modality Body, Chest N/A Computed Radiogr aphy 05/10/2023 8:54 AM PULPWOOD CUTTER Impressions 05/10/2023 6:37 PM PULPWOOD CUTTER The current study is compared with the [...] Roldan Harrison M.D. Narrative 05/10/2023 6:37 PM PULPWOOD CUTTER EXAMINATION: 1 view chest radiograph Procedure Note [...] * Potassium, whole blood (05/09/2023 8:16 PM PULPWOOD CUTTER) Potassium, bld 4.3 3.3 - 4.9 mmol/L [facility] Blood 05/09/2023 8:16 PM PULPWOOD CUTTER 05/09/2023 8:28 PM PULPWOOD CUTTER Anderson Tolentino Jr., TREE LAB BLOOD ORDERABLE S Final Result Performing Organization Address City/[facility]/ZIP Co de Phone Number [facility] [place] [employer] [place] [address] * Lidocaine level (05/09/2023 6:20 PM PULPWOOD CUTTER) Lidocaine (Xylocaine) 3.7 1.5 - 5.0 mcg/mL [facility] Blood 05/09/2023 6:20 PM PULPWOOD CUTTER 05/09/2023 6:35 PM PULPWOOD CUTTER Faustino Herrera MD LAB BLOOD ORDERABLES Final Result Performing Organization Address City/[facility]/ZIP Co de Phone Number [facility] [place] [employer] [place] [address] * Critical Care (05/09/2023 3:58 PM PULPWOOD CUTTER) Narrative Dalton Locke MD - 05/09/2023 3:58 PM PULPWOOD CUTTER Dalton Locke MD ? 05/12/2023 ??4:14 PM [...] plan with the ICU team and other medical/applications sales consultant staff, making frequent assessments and [...] * Potassium, whole blood (05/09/2023 12:54 PM PULPWOOD CUTTER) Potassium, bld 4.2 3.3 - 4.9 mmol/L [facility] Blood 05/09/2023 12:5 4 PM PULPWOOD CUTTER 05/09/2023 1:03 PM PULPWOOD CUTTER us Anderson Tolentino Jr., TREE LAB BLOOD ORDERABLE S Final Result [facility] Department of Laboratories [place], [place] [id number] * Hepatic function panel (05/09/2023 12:54 PM PULPWOOD CUTTER) Bilirubin, total 0.9 0.1 - 1.2 mg/dL [facility] Bilirubin, direct 0.3 0.1 - 0.3 mg/dL [facility] Protein, pl 8.3 6.5 - 8.5 g/dL [facility] Albumin 4.1 3.5 - 5.0 g/dL [facility] Alk phos 93 40 - 130 Units/L [facility] ALT 30 7 - 55 Units/L [facility] AST 35 10 - 50 Units/L [facility] Blood 05/09/2023 12:5 4 PM PULPWOOD CUTTER 05/09/2023 1:07 PM PULPWOOD CUTTER Faustino Herrera MD LAB BLOOD ORDERABLES Final Result Performing Organization Address City/[facility] [place] [address] * Lipase (05/09/2023 12:54 PM PULPWOOD CUTTER) Lipase 28 10 - 99 Units/L [facility] Blood 05/09/2023 12:5 4 PM PULPWOOD CUTTER 05/09/2023 1:07 PM PULPWOOD CUTTER Faustino Herrera MD LAB BLOOD ORDERABLES Final Result Performing Organization Address [facility] [place] [address] * US Vein Duplex Lower Extremity Bilateral Complete (05/09/2023 11:23 AM PULPWOOD CUTTER) Anatomical Region Laterality Modality Vascular Bilateral Ultrasound 05/09/2023 9:31 AM PULPWOOD CUTTER Narrative 05/09/2023 9:07 PM PULPWOOD CUTTER [employer] - Department of Vascular Surgery, Vascular Laboratory [address] [place] [id number] Lower Extremity Venous Ultrasound Report Patient Name: ERIBERTO CHAU : 1990 (32y 11m) Study Date: 05/09/2023 9:31:37 AM Gender: M Tech: [place] Location: [id number] Ref Provider: FAUSTINO HERRERA ?Quality: Adequate Order [...] and fever r/o DVT - FINDINGS: Performing Cylinder Press Feeder: Cheryle Soliz RVT, APPLE. Bilateral: Venous Doppler [...] By: Pepe Gardner MD FACS 2023-05-09 21:07:13 PULPWOOD CUTTER Procedure Note Pepe Gardner MD - 05/09/2023 [facility] - Department of Vascular Surgery,Vascular Laboratory [address] [place] [address] Lower Extremity Venous Ultrasound Report Patient Name: ERIBERTO CHAU : 1990 (32y 11m) Study Date: 05/09/2023 9:31:37 AM Gender: M Tech: [place] Location: [id number] Ref Provider: FAUSTINO HERRERA Quality: Adequate Order Provider: FAUSTINO HERRERA PROCEDURES: Vascular Report: Venous Duplex imaging was performed bilaterally in the lower extremities.The common femoral, femoral, popliteal, posterior tibial, peroneal veins wereevaluated for patency, spontaneity and phasicity with Doppler, compression and augmentationmaneuvers. Great saphenous vein proximal at the junction was evaluated with compressionmaneuvers. INDICATIONS: post-op pain and fever r/o DVT - FINDINGS: Performing Cylinder Press Feeder: Cheryle Soliz RVT, RDMS. Bilateral: Venous Doppler [...] above. Electronically Signed By: Pepe Gardner MD [facility] 2023-05-09 21:07:13 PULPWO[facility] CUTTER Faustino Herrera MD IM US PROCEDURES Final Re sult * ECG 12 lead (05/09/2023 9:22 AM PULPWOOD CUTTER) Ventricular Rate EKG/Min 88 BPM [facility] Atrial Rate 88 BPM [facility] DE-Interval (MSEC) 154 ms [facility] QRS-Interval (MSEC) 96 ms [facility] QT-Interval (MSEC) 368 ms [facility] QTc 445 ms [facility] R [place] 189 degrees [facility] T [place] 146 degrees [facility] Diagnosis Normal sinus rhythm Suspect limb lead reversal,inter pretation assumes reversal T wave abnormality, consider lateral ischemia Abnormal ECG When compared with ECG of 07-MAY-2023 18:46, (unconfirmed) leads misplaced Nonspecific T wave abnormality has replaced inverted T waves in Inferior leads Confirmed by ROSY AMARO M.D ([id number]) on 05/10/2023 9:41:27 AM [facility] 05/09/2023 9:22 AM PULPWOOD CUTTER 05/10/2023 9:41 AM PULPWOOD CUTTER us Marina Cordova HEARING HEALTH TECHNICIAN ECG ORDERABLES Final Resu lt [facility] * Potassium, whole blood (05/09/2023 8:04 AM PULPWOOD CUTTER) Potassium, bld 4.1 3.3 - 4.9 mmol/L [facility] Blood 05/09/2023 8:04 AM PULPWOOD CUTTER 05/09/2023 8:12 AM PULPWOOD CUTTER Anderson Tolentino Jr., NP LAB BLOOD ORDERABLE S Final Result Performing Organization Address [facility]/ZIP Co de Phone Number [facility] [place] [address] * (ABNORMAL) POC Blood Gas and Chemistries, Arterial - (05/09/2023 6:22 AM PULPWOOD CUTTER) pH, Art POC 7.36 7.35 - 7.45 [facility] pCO2, Art POC 35 35 - 45 mmHg [facility] pO2, Art POC 103 83 - 108 mmHg [facility] Na, POC 139 135 - 145 mmol/L [facility] K POC 4.4 3.3 - 4.9 mmol/L [facility] Comment: Interpretive Data This method is not able to assess for hemolysis, which may falsely increase potassium concentrations. If further testing is needed to evaluate this result, consider in-laboratory plasma potassium. Current Interpretive Data was last revised on 2022. Cl, POC 109 97 - 110 mmol/L [facility] Ionized Ca, POC 4.82 4.50 - 5.10 mg/dL [facility] Glucose, POC 136 70 - 199 mg/dL [facility] Lactate, POC 0.5(L) 0.7 - 2.2 mmol/L [facility] SO2 (natalia) arterial 99(H) 90 - 95 % [facility] Base excess, POC -5.1 mmol/L [facility] HCO3, Art POC 20 20 - 30 mmol/L [facility] Hct, POC 31.0(L) 41.4 - 51.6 % [facility] O2 Sat, Art POC (Calc) 98 % [facility] Total Hb, POC 10.2(L) 13.8 - 17.2 g/dL [facility] Blood 05/09/2023 6:22 AM PULPWOOD CUTTER 05/09/2023 6:22 AM PULPWOOD CUTTER us Faustino Herrera MD LAB POCT ORDERABLES - ROSIE CE Final Result Performing Organization Address City/[facility]/ZIP Co de Phone Number [facility] [place] [address] * Potassium, whole blood (05/09/2023 12:36 AM PULPWOOD CUTTER) Pathologist [facility] Potassium, bld 3.9 3.3 - 4.9 mmol/L [facility] Blood 05/09/2023 12:3 6 AM PULPWOOD CUTTER 05/09/2023 12:43 AM PULPWOOD CUTTER us Anderson Tolentino Jr., TREE LAB BLOOD ORDERABLE S Final Result Performing Organization Address [facility] Co de Phone Number [facility] [place] [place] [address] * (ABNORMAL) Blood gas, arterial (05/09/2023 12:36 AM PULPWOOD CUTTER) pH, Art 7.39 7.35 - 7.45 [facility] PCO2, Arterial 29(L) 35 - 45 mmHg [facility] PO2, Arterial 108 83 - 108 mmHg [facility] HCO3 Art (Calculated) 18(L) 20 - 30 mmol/L [facility] BE, art -6 mmol/L [facility] Comment: Interpretive Data No Reference Range Established Current Interpretive Data was last revised on 2017 O2 Sat Art (Measured) 98(H) 90 - 95 % [facility] Blood 05/09/2023 12:3 6 AM PULPWOOD CUTTER 05/09/2023 12:43 AM PULPWOOD CUTTER us Faustino Herrera MD LAB BLOOD ORDERABLES Final Result Performing Organization Address [facility] de Phone Number [facility] [place] [address] * eGFR (05/09/2023 12:35 AM PULPWOOD CUTTER) eGFR >90 >=60 mL/min/1. 73 m2 [facility] Comment: Interpretive Data Reference Interval Normal ?>/= [...] reviewed 2021. Blood 05/09/2023 12:3 5 AM PULPWOOD CUTTER 05/09/2023 12:56 AM PULPWOOD CUTTER us Alonzo uDncan MD LAB BLOOD ORDERABLES Fin al Result Performing Organization Address [facility] Co de Phone Number [facility] [place] [address] * (ABNORMAL) Triglycerides (05/09/2023 12:35 AM PULPWOOD CUTTER) Triglycerides 533(H) <=149 mg/dL [facility] Comment: Hemolyzed; result may be falsely [...] on 2018. Blood 05/09/2023 12:3 5 AM PULPWOOD CUTTER 05/09/2023 12:56 AM PULPWOOD CUTTER us Faustino Herrera MD LAB BLOOD ORDERABLES Final Result Performing Organization Address City/State/[facility] Co de Phone Number [facility] [place] [address] * aPTT (05/09/2023 12:35 AM PULPWOOD CUTTER) aPTT 33 28 - [address] [facility] Comment: Interpretive Data Heparin therapeutic range: 66.0 - 100.0 seconds. Range based on correlation with therapeutic heparin activity range of 0.3 - 0.7 Units/mL. Current interpretive data was last revised on 2023. Blood 05/09/2023 12:3 5 AM PULPWOOD CUTTER 05/09/2023 12:54 AM PULPWOOD CUTTER Faustino Herrera MD LAB BLOOD ORDERABLES Final Result Performing Organization Address [facility] de Phone Number [facility] [place] [place] [address] * (ABNORMAL) Protime-INR (05/09/2023 12:35 AM PULPWOOD CUTTER) PT 14.3(H) 10.3 - 13.7 sec [facility] INR 1.25(H) 0.90 - 1.20 [facility] Comment: Interpretive data Oral anticoagulant therapeutic ranges: Venous thromboembolism prophylaxis or treatment: 2.0-3.0 CARDIOLOGY Standard range: 2.0-3.0 High-intensity range: 2.5-3.5 Refer to indication-specific guidelines for appropriate target ranges for prosthetic heart valve replacement. Current interpretive data was last revised on 2019. Blood 05/09/2023 12:3 5 AM PULPWOOD CUTTER 05/09/2023 12:54 AM PULPWOOD CUTTER Faustino Herrera MD LAB BLOOD ORDERABLES Final Result Performing Organization Address [facility] de Phone Number [facility] [place] [place] [address] * Phosphorus (05/09/2023 12:35 AM PULPWOOD CUTTER) Phosphorus, pl 2.8 2.3 - 4.5 mg/dL [facility] Comment:Hemolyzed; result ma y be falsely elevated Blood 05/09/2023 12:3 5 AM PULPWOOD CUTTER 05/09/2023 12:56 AM PULPWOOD CUTTER Result [facility] Faustino Herrera MD LAB BLOOD ORDERABLES Final Result Performing Organization Address City/[facility]/ZIP Co de Phone Number [facility] [place] [address] * (ABNORMAL) Magnesium (05/09/2023 12:35 AM PULPWOOD CUTTER) Pathologist [facility] Magnesium 2.7(H) 1.4 - 2.5 mg/dL [facility] Blood 05/09/2023 12:3 5 AM PULPWOOD CUTTER 05/09/2023 12:56 AM PULPWOOD CUTTER Faustino Herrera MD LAB BLOOD ORDERABLES Final Result Performing Organization Address [facility] de Phone Number [facility] [place] [address] * (ABNORMAL) Basic metabolic panel (05/09/2023 12:35 AM PULPWOOD CUTTER) [facility] Sodium 134(L) 135 - 145 mmol/L [facility] Potassium, pl See Comment 3.3 - 4.9 mmol/L [facility] Comment:Credited; Hemolyzed Specimen Chloride 104 97 - 110 mmol/L [facility] CO2 20(L) 22 - 32 mmol/L [facility] Anion gap 10 2 - 15 mmol/L [facility] BUN 17 6 - 25 mg/dL [facility] Creatinine 0.86 0.80 - 1.30 mg/dL [facility] Glucose 142 70 - 199 mg/dL [facility] [...] 2022. Calcium 8.5 8.5 - 10.3 mg/dL [facility] Blood 05/09/2023 12:3 5 AM PULPWOOD CUTTER 05/09/2023 12:56 AM PULPWOOD CUTTER Faustino Herrera MD LAB BLOOD ORDERABLES Final Result [facility] [place] [address] * (ABNORMAL) CBC without differential (05/09/2023 12:35 AM PULPWOOD CUTTER) [facility] WBC 14.9(H) 3.8 - 9.9 K/cumm [facility] Hgb 10.1(L) 13.0 - 17.5 g/dL [facility] Comment: Interpretive Data A reference range for this assay has not been established for patients with an unknown legal sex. Please refer to the laboratory test catalog for established sex-specific reference intervals. Current interpretive data was last revised on 2023. Hct 30.1(L) 38.9 - 50.3 % [facility] Comment: Interpretive Data A reference range for this assay has not been established for patients with an unknown legal sex. Please refer to the laboratory test catalog for established sex-specific reference intervals. Current interpretive data was last revised on 2023. Plt 274 150 - 400 K/cumm [facility] MPV 9.4 9.1 - 12.3 fL [facility] RBC 3.32(L) 4.30 - 5.80 M/cumm [facility] Comment: Interpretive Data A reference range for this assay has not been established for patients with an unknown legal sex. Please refer to the laboratory test catalog for established sex-specific reference intervals. Current interpretive data was last revised on 2023. MCV 90.7 81.3 - 96.4 fL [facility] MCH 30.4 27.1 - 33.3 pg [facility] MCHC 33.6 32.3 - 35.7 g/dL [facility] RDW CV 13.2 11.1 - 14.9 % [facility] RDW SD 43.9 35.7 - 48.1 fL [facility] NRBC abs 0.02(H) 0.00 - 0.01 K/cumm [facility] Blood 05/09/2023 12:3 5 AM [facility] 05/09/2023 12:56 AM [facility] Faustino Herrera MD LAB BLOOD ORDERABLES Final Result [facility] [place] [address] * XR Chest 1 View (05/08/2023 7:59 PM P[facility] CUTTER) Anatomical Region Laterality Modality Body, Chest N/A Digital Radiogra phy 05/09/2023 8:48 AM [facility] Impressions 05/09/2023 11:38 AM [facility] The current study is compared with the prior radiograph dated 05/07/2023. 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 ??Right internal jugular central venous catheter terminates at the superior cavoatrial junction. The cardiomediastinal silhouette is stable. ??Small lung volumes. ??No consolidation or pulmonary edema. ??No pleural effusion, though the right costophrenic angle is excluded from the [id number]. ??No pneumothorax. ?? Dictated by: Chris Turner MD The radiology attending physician has personally reviewed this study, and had reviewed and/or edited this written report and agrees with it. Electronically signed by: Hipolito Mobley M.D. Narrative 05/09/2023 11:38 AM [facility] EXAMINATION: 1 view chest radiograph Procedure Note [...] right costophrenic angle is excluded from the [id number]. No pneumothorax. Dictated by: Chris Turner MD The radiology attending physician has personally reviewed this study, and had reviewed and/or edited this written report and agrees with it. Electronically signed by: Hipolito Mobley M.D. Faustino Herrera MD IMG XR PROCEDURES Final Re sult * (ABNORMAL) POC Blood Gas and Chemistries, Arterial - (05/08/2023 7:25 PM [facility] C[facility]TER) pH, Art POC 7.44 7.35 - 7.45 [...] POC 11.2(L) 13.8 - 17.2 g/dL [facility] Blood 05/08/2023 7:25 PM [facility] 05/08/2023 7:25 PM [facility] Faustino Herrera MD LAB POCT ORDERABLES - ROSIE CE Final Result Performing Organization Address [facility] Co de Phone Number [facility] [place] [address] * Potassium, whole blood (05/08/2023 5:39 PM [facility]) Potassium, bld 4.1 3.3 - 4.9 mmol/L [facility] Blood 05/08/2023 5:39 PM [facility] 05/08/2023 5:49 PM [facility] Anderson Tolentino Jr., HEARING HEALTH TECHNICIAN LAB BLOOD ORDERABLE S Final Result Performing Organization Address [facility] [place] [address] * Lidocaine level (05/08/2023 5:39 PM [facility] C[facility]TER) Pathologist [facility] Lidocaine (Xylocaine) 4.6 1.5 - 5.0 mcg/mL [facility] Blood 05/08/2023 5:39 PM [facility] 05/08/2023 5:49 PM [facility] Narrative [facility] - 05/08/2023 6:23 PM [facility] Draw 24 hours after infusion started. us Faustino Herrera MD LAB BLOOD ORDERABLES Final Result Performing Organization Address [facility] [place] [address] * Critical Care (05/08/2023 2:53 PM [facility]) Narrative Dalton Locke MD - 05/08/2023 2:53 PM [facility]TER Dalton Locke MD ? 05/08/2023 ??2:57 PM [...] plan with the ICU team and other medical/applications sales consultant staff, making frequent assessments and [...] * Potassium, whole blood (05/08/2023 11:44 AM [facility] C[facility]TER) Pathologist [facility] Potassium, bld 4.5 3.3 - 4.9 mmol/L [facility] Comment:Hemolyzed; results m ay be falsely elevated. Blood 05/08/2023 11:4 4 AM [facility] 05/08/2023 12:02 PM [facility] Anderson Tolentino Jr., TREE LAB BLOOD ORDERABLE S Final Result [facility] Department [place] [address] * Potassium, whole blood (05/08/2023 8:02 AM P[facility] C[facility]TER) [facility] Potassium, bld 4.1 3.3 - 4.9 mmol/L [facility] Blood 05/08/2023 8:02 AM [facility] C[facility]TER 05/08/2023 8:09 AM [facility] C[facility] Anderson Tolentino Jr., TREE LAB BLOOD ORDERABLE S Final Result Performing Organization Address [facility] Co de Phone Number [facility] [place] [address] * (ABNORMAL) Blood gas, arterial (05/08/2023 8:02 AM [facility] C[facility]TER) [facility] pH, Art 7.36 7.35 - 7.45 [facility] PCO2, Arterial 34(L) 35 - 45 mmHg [facility] PO2, Arterial 89 83 - 108 mmHg [facility] HCO3 Art (Calculated) 19(L) 20 - 30 mmol/L [facility] BE, art -6 mmol/L [facility] Comment: Interpretive Data No Reference Range Established Current Interpretive Data was last revised on 2017 O2 Sat Art (Measured) 97(H) 90 - 95 % [facility] Blood 05/08/2023 8:02 AM [facility] C[facility]TER 05/08/2023 8:09 AM [facility] Faustino Herrera MD LAB BLOOD ORDERABLES Final Result Performing Organization Address [facility]/[place] [address] * eGFR (05/08/2023 1:08 AM P[facility] CUTTER) [facility] eGFR >90 >=60 mL/min/1. 73 m2 [facility] Comment: Interpretive Data Reference Interval Normal ?>/= [...] last reviewed 2021. Blood 05/08/2023 1:08 AM [facility] C[facility]TER 05/08/2023 1:24 AM [facility] us Alonzo Duncan MD LAB BLOOD ORDERABLES Fin al Result [facility] [place] [address] * (ABNORMAL) Blood gas, arterial (05/08/2023 1:08 AM [facility] C[facility]TER) pH, Art 7.37 7.35 - 7.45 [facility] PCO2, Arterial 32(L) 35 - 45 mmHg [facility] PO2, Arterial 151(H) 83 - 108 mmHg [facility] HCO3 Art (Calculated) 19(L) 20 - 30 mmol/L [facility] BE, art -6 mmol/L [facility] Comment: Interpretive Data No Reference Range Established Current Interpretive Data was last revised on 2017 O2 Sat Art (Measured) 99(H) 90 - 95 % [facility] Blood 05/08/2023 1:08 AM [facility] 05/08/2023 1:21 AM [facility] Faustino Herrera MD LAB BLOOD ORDERABLES Final Result Performing Organization Address [facility] Co de Phone Number [facility] [place] [address] * Potassium, whole blood (05/08/2023 1:08 AM [facility] C[facility]) Potassium, bld 4.8 3.3 - 4.9 mmol/L [facility] Blood 05/08/2023 1:08 AM [facility] 05/08/2023 1:21 AM [facility] Anderson Tolentino Jr., NP LAB BLOOD ORDERABLE S Final Result Performing Organization Address [facility] de Phone Number [facility] [place] [employer] [place] [address] * aPTT (05/08/2023 1:08 AM P[facility] C[facility]TER) Pathologist [facility] aPTT 35 28 - 38 sec [facility] Comment: Interpretive Data Heparin therapeutic range: 66.0 - 100.0 seconds. Range based on correlation with therapeutic heparin activity range of 0.3 - 0.7 Units/mL. Current interpretive data was last revised on 2023. Blood 05/08/2023 1:08 AM [facility] C[facility]TER 05/08/2023 1:40 AM [facility] Faustino Herrera MD LAB BLOOD ORDERABLES Final Result Performing Organization Address [facility] [place] [address] * (ABNORMAL) Protime-INR (05/08/2023 1:08 AM P[facility] C[facility]TER) PT 14.2(H) 10.3 - 13.7 sec [facility] INR 1.25(H) 0.90 - 1.20 [facility] Comment: Interpretive data Oral anticoagulant therapeutic ranges: Venous thromboembolism prophylaxis or treatment: 2.0-3.0 CARDIOLOGY Standard range: 2.0-3.0 High-intensity range: 2.5-3.5 Refer to indication-specific guidelines for appropriate target ranges for prosthetic heart valve replacement. Current interpretive data was last revised on 2019. Blood 05/08/2023 1:08 AM [facility] C[facility]TER 05/08/2023 1:40 AM [facility] Faustino Herrera MD LAB BLOOD ORDERABLES Final Result Performing Organization Address [facility] de Phone Number [facility] [place] [place] [address] * Phosphorus (05/08/2023 1:08 AM P[facility] C[facility]TER) Phosphorus, pl 3.6 2.3 - 4.5 mg/dL [facility] Blood 05/08/2023 1:08 AM [facility] C[facility]TER 05/08/2023 1:24 AM [facility]TER Result [facility] Faustino Herrera MD LAB BLOOD ORDERABLES Final Result Performing Organization Address [facility] de Phone Number [facility] [place] [place] [address] * (ABNORMAL) Magnesium (05/08/2023 1:08 AM P[facility] C[facility]TER) Magnesium 2.6(H) 1.4 - 2.5 mg/dL [facility] Blood 05/08/2023 1:08 AM [facility] C[facility]TER 05/08/2023 1:24 AM P[facility] C[facility]TER Result [facility] Faustino Herrera MD LAB BLOOD ORDERABLES Final Result Performing Organization Address [facility] de Phone Number [facility] [place] [place] [address] * (ABNORMAL) Basic metabolic panel (05/08/2023 1:08 AM P[facility] C[facility]TER) Sodium 134(L) 135 - 145 mmol/L [facility] Potassium, pl 4.9 3.3 - 4.9 mmol/L [facility] Chloride 104 97 - 110 mmol/L [facility] CO2 19(L) 22 - 32 mmol/L [facility] Anion gap 11 2 - 15 mmol/L [facility] BUN 18 6 - 25 mg/dL [facility] Creatinine 1.04 0.80 - 1.30 mg/dL [facility] Glucose 114 70 - 199 mg/dL [facility] [...] 2022. Calcium 8.8 8.5 - 10.3 mg/dL [facility] Blood 05/08/2023 1:08 AM [facility] C[facility]TER 05/08/2023 1:24 AM [facility] Faustino Herrera MD LAB BLOOD ORDERABLES Final Result [facility] [place] [address] * (ABNORMAL) CBC without differential (05/08/2023 1:08 AM PUL[facility]WO[facility] CUTTER) Pathologist [facility] WBC 14.2(H) 3.8 - 9.9 K/cumm [facility] Hgb 9.9(L) 13.0 - 17.5 g/dL [facility] Comment: Interpretive Data A reference range for this assay has not been established for patients with an unknown legal sex. Please refer to the laboratory test catalog for established sex-specific reference intervals. Current interpretive data was last revised on 2023. Hct 29.9(L) 38.9 - 50.3 % [facility] Comment: Interpretive Data A reference range for this assay has not been established for patients with an unknown legal sex. Please refer to the laboratory test catalog for established sex-specific reference intervals. Current interpretive data was last revised on 2023. Plt 298 150 - 400 K/cumm [facility] MPV 9.6 9.1 - 12.3 fL [facility] RBC 3.29(L) 4.30 - 5.80 M/cumm [facility] Comment: Interpretive Data A reference range for this assay has not been established for patients with an unknown legal sex. Please refer to the laboratory test catalog for established sex-specific reference intervals. Current interpretive data was last revised on 2023. MCV 90.9 81.3 - 96.4 fL [facility] MCH 30.1 27.1 - 33.3 pg [facility] MCHC 33.1 32.3 - 35.7 g/dL [facility] RDW CV 13.3 11.1 - 14.9 % [facility] RDW SD 45.0 35.7 - 48.1 fL [facility] NRBC abs 0.00 0.00 - 0.01 K/cumm [facility] Blood 05/08/2023 1:08 AM [facility] C[facility]TER 05/08/2023 1:24 AM [facility] Faustino Herrera MD LAB BLOOD ORDERABLES Final Result [facility] [place] [address] * (ABNORMAL) POC Blood Gas and Chemistries, Arterial - (05/07/2023 8:40 PM PUL[facility] C[facility]TER) pH, Art POC 7.34(L) 7.35 - 7.45 [facility] pCO2, Art POC 38 35 - 45 mmHg [facility] pO2, Art POC 79(L) 83 - 108 mmHg [facility] Na, POC 134(L) 135 - 145 mmol/L [facility] K POC 4.1 3.3 - 4.9 mmol/L [facility] Comment: Interpretive Data This method is not able to assess for hemolysis, which may falsely increase potassium concentrations. If further testing is needed to evaluate this result, consider in-laboratory plasma potassium. Current Interpretive Data was last revised on 2022. Cl, POC 104 97 - 110 mmol/L [facility] Ionized Ca, POC 4.92 4.50 - 5.10 mg/dL [facility] Glucose, POC 118 70 - 199 mg/dL [facility] Lactate, POC 0.6(L) 0.7 - 2.2 mmol/L [facility] SO2 (natalia) arterial 96(H) 90 - 95 % [facility] Base excess, POC -4.8 mmol/L [facility] HCO3, Art POC 20 20 - 30 mmol/L [facility] Hct, POC 36.0(L) 41.4 - 51.6 % [facility] O2 Sat, Art POC (Calc) 95 % [facility] Total Hb, POC 11.9(L) 13.8 - 17.2 g/dL [facility] Blood 05/07/2023 8:40 PM [facility] 05/07/2023 8:40 PM [facility] Faustino Herrera MD LAB POCT ORDERABLES - ROSIE CE Final Result [facility] [place] [address] * Troponin I high-sensitivity 2-hour (05/07/2023 8:36 PM [facility] C[facility]TER) Trop I hs 27 <=35 ng/L [facility] Comment: Interpretive Data For further hscTnI resources including the diagnostic algorithm and an aid in interpretation, copy and paste this link: https://bjhlab.testcatalog.org/show/[email or web address] Current Interpretive Data last revised 2019. Trop I hs delta -2 ng/L [facility] Trop I hs interp Insignificant [facility] Blood 05/07/2023 8:36 PM [facility] C[facility]TER 05/07/2023 8:52 PM [facility] C[facility]TER us Faustino Herrera MD LAB BLOOD ORDERABLES Final Result [facility] [place] [address] * XR Chest 1 View (05/07/2023 8:26 PM PUL[facility] CUTTER) Anatomical Region Laterality Modality Body, Chest N/A Computed Radiogr aphy 05/08/2023 8:14 AM [facility] C[facility]TER Impressions 05/08/2023 8:14 AM [facility] C[facility]TER Comparison is made to radiograph of 05/06/2023 [...] Aaron Schafer M.D. Narrative 05/08/2023 8:14 AM [facility] C[facility]TER EXAMINATION: 2 serial 1 view chest radiograph [...] * ECG 12 lead (05/07/2023 6:46 PM PULPWOOD CUTTER) [facility] Ventricular Rate EKG/Min 80 BPM [facility] Atrial Rate 80 BPM [facility] DE-Interval (MSEC) 158 ms [facility] QRS-Interval (MSEC) 94 ms [facility] QT-Interval (MSEC) 372 ms [facility] QTc 429 ms [facility] P [place] 33 degrees [facility] R [place] -4 degrees [facility] T [place] -62 degrees [facility] Diagnosis Normal sinus rhythm Possible Left atrial enlargement Left ventricular hypertrophy with repolarization abnormality ( R in aVL , Keith product ) Abnormal ECG When compared with ECG of 05-MAY-2023 18:56, (unconfirmed) No significant change was found Confirmed by ROSY AMARO M.D ([id number]) on 05/09/2023 9:45:33 AM [facility] 05/07/2023 6:46 PM [facility] C[facility]TER 05/09/2023 9:45 AM P[facility] CUTTER us Faustino Herrera MD ECG ORDERABLES Final Resu lt [facility] * Troponin I high-sensitivity series (baseline, 2hr, 4hr, 6hr) (05/07/2023 6:15 PM PULPWOOD CUTTER) [facility] Trop I hs 29 <=35 ng/L [facility] Comment: Interpretive Data For further [facility] resources including the diagnostic algorithm and an aid in interpretation, copy and paste this link: https://bjhlab.testcatalog.org/show/[email or web address] Current Interpretive Data last revised 2019. Blood 05/07/2023 6:15 PM P[facility] C[facility]TER 05/07/2023 6:48 PM P[facility] C[facility]TER us Faustino Herrera MD LAB BLOOD ORDERABLES Final Result Performing Organization Address [facility] Co de Phone Number [facility] [place] [address] * Potassium, whole blood (05/07/2023 5:57 PM PULPWOOD CUTTER) [facility] Potassium, bld 4.2 3.3 - 4.9 mmol/L [facility] Blood 05/07/2023 5:57 PM [facility] C[facility]TER 05/07/2023 6:05 PM [facility] C[facility]TER Anderson Tolentino Jr., TREE LAB BLOOD ORDERABLE S Final Result Performing Organization Address [facility] Co de Phone Number [facility] [place] [employer] [place] [address] * (ABNORMAL) Blood gas, arterial (05/07/2023 5:57 PM PULPWOOD CUTTER) [facility] pH, Art 7.47(H) 7.35 - 7.45 [facility] PCO2, Arterial 27(L) 35 - 45 mmHg [facility] PO2, Arterial 154(H) 83 - 108 mmHg [facility] HCO3 Art (Calculated) 20 20 - 30 mmol/L [facility] BE, art -3 mmol/L [facility] Comment: Interpretive Data No Reference Range Established Current Interpretive Data was last revised on 2017 O2 Sat Art (Measured) 100(H) 90 - 95 % [facility] Blood 05/07/2023 5:57 PM P[facility] CUTTER 05/07/2023 6:05 PM P[facility] CUTTER us Faustino Herrera MD LAB BLOOD ORDERABLES Final Result [facility]ON COLON [facility] [place] [address] * XR Chest 1 View (05/07/2023 4:07 PM PUL[facility]WOOD CUTTER) Anatomical Region Laterality Modality Body, Chest N/A Computed Radiogr aphy 05/08/2023 8:14 AM P[facility] C[facility]TER Impressions 05/08/2023 8:14 AM [facility] C[facility]TER Comparison is made to radiograph of 05/06/2023 [...] Aaron Schafer M.D. Narrative 05/08/2023 8:14 AM [facility]TER EXAMINATION: 2 serial 1 view chest radiograph [...] and Chemistries, Arterial - (05/07/2023 3:57 PM PULPWOOD CUTTER) pH, Art POC 7.41 7.35 - 7.45 [facility] pCO2, Art POC 35 35 - 45 mmHg [facility] pO2, Art POC 60(L) 83 - 108 mmHg [facility] Na, POC 136 135 - 145 mmol/L [facility] K POC 3.8 3.3 - 4.9 mmol/L [facility] Comment: Interpretive Data This method is not able to assess for hemolysis, which may falsely increase potassium concentrations. If further testing is needed to evaluate this result, consider in-laboratory plasma potassium. Current Interpretive Data was last revised on 2022. Cl, POC 104 97 - 110 mmol/L [facility] Ionized Ca, POC 5.07 4.50 - 5.10 mg/dL [facility] Glucose, POC 116 70 - 199 mg/dL [facility] Lactate, POC 0.9 0.7 - 2.2 mmol/L [facility] SO2 (natalia) arterial 91 90 - 95 % [facility] Base excess, POC -2.0 mmol/L [facility] HCO3, Art POC 22 20 - 30 mmol/L [facility] Hct, POC 31.0(L) 41.4 - 51.6 % [facility] O2 Sat, Art POC (Calc) 91 % [facility] Total Hb, POC 10.4(L) 13.8 - 17.2 g/dL [facility] Blood 05/07/2023 3:57 PM [facility] C[facility]TER 05/07/2023 3:57 PM [facility] C[facility]TER Faustino Herrera MD LAB POCT ORDERABLES - ROSIE CE Final Result [facility] [place] [address] * Critical Care (05/07/2023 2:55 PM P[facility] CUTTER) Narrative Dalton Locke MD - 05/07/2023 2:55 PM [facility] C[facility]TER Dalton Locke MD ? 05/08/2023 ??2:57 PM [...] plan with the ICU team and other medical/applications sales consultant staff, making frequent assessments and [...] * Potassium, whole blood (05/07/2023 2:42 PM PUL[facility]WOOD CUTTER) Potassium, bld 3.5 3.3 - 4.9 mmol/L [facility] Blood 05/07/2023 2:42 PM P[facility]OD CUTTER 05/07/2023 2:48 PM PULPWOOD CUTTER us Anderson Tolentino Jr., TREE LAB BLOOD ORDERABLE S Final Result Performing Organization Address [facility] Co de Phone Number [facility] [address] [place] [address] * (ABNORMAL) Blood gas, arterial (05/07/2023 2:42 PM PULPWOOD CUTTER) Pathologist [facility] pH, Art 7.41 7.35 - 7.45 [facility] PCO2, Arterial 37 35 - 45 mmHg [facility] PO2, Arterial 65(L) 83 - 108 mmHg [facility] HCO3 Art (Calculated) 24 20 - 30 mmol/L [facility] BE, art -1 mmol/L [facility] Comment: Interpretive Data No Reference Range Established Current Interpretive Data was last revised on 2017 O2 Sat Art (Measured) 92 90 - 95 % [facility] Blood 05/07/2023 2:42 PM P[facility]WOOD CUTTER 05/07/2023 2:48 PM P[facility]OD CUTTER us Faustino Herrera MD LAB BLOOD ORDERABLES Final Result [facility] [address] [place] [address] * DE ARTL CATHJ/CANNULJ MNTR/TRANSFUSION SPX PRQ (05/07/2023 1:42 PM PULPWOOD CUTTER) Narrative Dalton Locke MD - 05/07/2023 1:42 PM [facility] C[facility]TER Thea Rizzo MD ? 05/07/2023 ??1:51 PM Arterial Line Insertion Date/Time: 05/07/2023 1:42 PM Performed by: Thea Rizzo MD Authorized by: Thea Rizzo MD ?? [place] Protocol: Informed consent: ??Risks, benefits, alternatives discussed and patient/event representative/guardian agrees and accepts Patient's stated name/ [...] Final Result * aPTT (05/07/2023 10:37 AM PULPWOOD CUTTER) aPTT 35 28 - [address] [facility] Comment: Interpretive Data Heparin therapeutic range: 66.0 - 100.0 seconds. Range based on correlation with therapeutic heparin activity range of 0.3 - 0.7 Units/mL. Current interpretive data was last revised on 2023. Blood 05/07/2023 10:3 7 AM [facility]OD CUTTER 05/07/2023 10:46 AM [facility] C[facility]TER Faustino Herrera MD LAB BLOOD ORDERABLES Final Result Performing Organization Address [facility] de Phone Number [facility] [place] [address] * (ABNORMAL) Protime-INR (05/07/2023 10:37 AM PULPWOOD CUTTER) PT 14.6(H) 10.3 - 13.7 sec [facility] INR 1.28(H) 0.90 - 1.20 [facility] Comment: Interpretive data Oral anticoagulant therapeutic ranges: Venous thromboembolism prophylaxis or treatment: 2.0-3.0 CARDIOLOGY Standard range: 2.0-3.0 High-intensity range: 2.5-3.5 Refer to indication-specific guidelines for appropriate target ranges for prosthetic heart valve replacement. Current interpretive data was last revised on 2019. Blood 05/07/2023 10:3 7 AM PULPWOOD CUTTER 05/07/2023 10:46 AM PULPWOOD CUTTER Faustino Herrera MD LAB BLOOD ORDERABLES Final Result Performing Organization Address [facility] de Phone Number [facility] [place] [address] * (ABNORMAL) Blood gas, arterial (05/07/2023 6:13 AM PULPWOOD CUTTER) pH, Art 7.48(H) 7.35 - 7.45 [facility] PCO2, Arterial 38 35 - 45 mmHg [facility] PO2, Arterial 162(H) 83 - 108 mmHg [facility] HCO3 Art (Calculated) 29 20 - 30 mmol/L [facility] BE, art 5 mmol/L [facility] Comment: Interpretive Data No Reference Range Established Current Interpretive Data was last revised on 2017 O2 Sat Art (Measured) 100(H) 90 - 95 % [facility] Blood 05/07/2023 6:13 AM PULPWOOD CUTTER 05/07/2023 6:26 AM PULPWOOD CUTTER Faustino Herrera MD LAB BLOOD ORDERABLES Final Result Performing Organization Address [facility] Co de Phone Number [facility] [place] [address] * Potassium, whole blood (05/07/2023 5:56 AM PULPWOOD CUTTER) Potassium, bld 3.9 3.3 - 4.9 mmol/L [facility] Blood 05/07/2023 5:56 AM PULPWOOD CUTTER 05/07/2023 6:08 AM PULPWOOD CUTTER Anderson Tolentino Jr., TREE LAB BLOOD ORDERABLE S Final Result Performing Organization Address [facility] de Phone Number [facility] [place] [place] [address] * Potassium, whole blood (05/07/2023 3:58 AM PULPWOOD CUTTER) Potassium, bld 4.2 3.3 - 4.9 mmol/L [facility] Blood 05/07/2023 3:58 AM PULPWOOD CUTTER 05/07/2023 4:19 AM PULPWOOD CUTTER Anderson Tolentino Jr., TREE LAB BLOOD ORDERABLE S Final Result Performing Organization Address [facility] [place] [address] * DE ARTL CATHJ/CANNULJ MNTR/TRANSFUSION SPX PRQ (05/07/2023 2:50 AM PULPWOOD CUTTER) Narrative Dalton Locke MD - 05/07/2023 2:50 AM PULPWOOD CUTTER Michael Hamm MD ? 05/07/2023 ??2:52 AM Arterial Line Insertion Date/Time: 05/07/2023 2:50 AM Performed by: Michael Hamm MD Authorized by: Michael Hamm MD ?? [place] Protocol: RN Notified of Procedure: yes ?? [...] Final Result * eGFR (05/07/2023 12:35 AM PULPWOOD CUTTER) [facility] eGFR >90 >=60 mL/min/1. 73 m2 [facility] Comment: Interpretive Data Reference Interval Normal ?>/= [...] reviewed 2021. Blood 05/07/2023 12:3 5 AM PULPWOOD CUTTER 05/07/2023 12:47 AM PULPWOOD CUTTER Alonzo Duncan MD LAB BLOOD ORDERABLES Fin al Result Performing Organization Address [facility] de Phone Number [facility] [place] [address] * (ABNORMAL) Blood gas, arterial (05/07/2023 12:35 AM PULPWOOD CUTTER) pH, Art 7.52(H) 7.35 - 7.45 [facility] PCO2, Arterial 40 35 - 45 mmHg [facility] PO2, Arterial 117(H) 83 - 108 mmHg [facility] HCO3 Art (Calculated) 34(H) 20 - 30 mmol/L [facility] BE, art 9 mmol/L [facility] Comment: Interpretive Data No Reference Range Established Current Interpretive Data was last revised on 2017 O2 Sat Art (Measured) 99(H) 90 - 95 % [facility] Blood 05/07/2023 12:3 5 AM PULPWOOD CUTTER 05/07/2023 12:45 AM PULPWOOD CUTTER us Faustino Herrera MD LAB BLOOD ORDERABLES Final Result Performing Organization Address [facility] Co de Phone Number [facility] Department [place] [address] * Potassium, whole blood (05/07/2023 12:35 AM PULPWOOD CUTTER) Potassium, bld 3.7 3.3 - 4.9 mmol/L [facility] Blood 05/07/2023 12:3 5 AM PULPWOOD CUTTER 05/07/2023 12:45 AM PULPWOOD CUTTER us Anderson Tolentino Jr., TREE LAB BLOOD ORDERABLE S Final Result Performing Organization Address [facility] de Phone Number [facility] [place] [place] [address] * Type and screen (05/07/2023 12:35 AM PULPWOOD CUTTER) Ellen, indirect Negative ABO Rh A Positive [facility] Blood 05/07/2023 12:3 5 AM PULPWOOD CUTTER 05/07/2023 1:00 AM PULPWOOD CUTTER Narrative [facility] - 05/07/2023 2:20 AM PULPWOOD CUTTER Has the patient had Daratumumab or Isatuximab in the past 6 months?->Unknown Faustino Herrera MD LAB BLOOD BANK TEST ORDERA BLES Final Result Performing Organization Address [facility] Co de Phone Number [facility] [place] [address] * Phosphorus (05/07/2023 12:35 AM PULPWOOD CUTTER) Phosphorus, pl 2.9 2.3 - 4.5 mg/dL [facility] Blood 05/07/2023 12:3 5 AM PULPWOOD CUTTER 05/07/2023 12:47 AM PULPWOOD CUTTER Faustino Herrera MD LAB BLOOD ORDERABLES Final Result Performing Organization Address [facility] Co de Phone Number [facility] [place] [address] * Magnesium (05/07/2023 12:35 AM PULPWOOD CUTTER) Pathologist [facility] Magnesium 2.3 1.4 - 2.5 mg/dL [facility] Blood 05/07/2023 12:3 5 AM PULPWOOD CUTTER 05/07/2023 12:47 AM PULPWOOD CUTTER Faustino Herrera MD LAB BLOOD ORDERABLES Final Result [facility] [place] [address] * (ABNORMAL) Basic metabolic panel (05/07/2023 12:35 AM PULPWOOD CUTTER) Pathologist [facility] Sodium 140 135 - 145 mmol/L [facility] Potassium, pl 3.8 3.3 - 4.9 mmol/L [facility] Chloride 97 97 - 110 mmol/L [facility] CO2 33(H) 22 - 32 mmol/L [facility] Anion gap 10 2 - 15 mmol/L [facility] BUN 20 6 - 25 mg/dL [facility] Creatinine 0.99 0.80 - 1.30 mg/dL [facility] Glucose 103 70 - 199 mg/dL [facility] [...] 2022. Calcium 8.7 8.5 - 10.3 mg/dL [facility] Blood 05/07/2023 12:3 5 AM PULPWOOD CUTTER 05/07/2023 12:47 AM PULPWOOD CUTTER Faustino Herrera MD LAB BLOOD ORDERABLES Final Result [facility] [place] [address] * (ABNORMAL) CBC without differential (05/07/2023 12:35 AM PULPWOOD CUTTER) WBC 13.6(H) 3.8 - 9.9 K/cumm [facility] Hgb 10.0(L) 13.0 - 17.5 g/dL [facility] Comment: Interpretive Data A reference range for this assay has not been established for patients with an unknown legal sex. Please refer to the laboratory test catalog for established sex-specific reference intervals. Current interpretive data was last revised on 2023. Hct 29.5(L) 38.9 - 50.3 % [facility] Comment: Interpretive Data A reference range for this assay has not been established for patients with an unknown legal sex. Please refer to the laboratory test catalog for established sex-specific reference intervals. Current interpretive data was last revised on 2023. Plt 244 150 - 400 K/cumm [facility] MPV 10.1 9.1 - 12.3 fL [facility] RBC 3.36(L) 4.30 - 5.80 M/cumm [facility] Comment: Interpretive Data A reference range for this assay has not been established for patients with an unknown legal sex. Please refer to the laboratory test catalog for established sex-specific reference intervals. Current interpretive data was last revised on 2023. MCV 87.8 81.3 - 96.4 fL [facility] MCH 29.8 27.1 - 33.3 pg [facility] MCHC 33.9 32.3 - 35.7 g/dL [facility] RDW CV 13.6 11.1 - 14.9 % [facility] RDW SD 43.8 35.7 - 48.1 fL [facility] NRBC abs 0.02(H) 0.00 - 0.01 K/cumm [facility] Blood 05/07/2023 12:3 5 AM PULPWOOD CUTTER 05/07/2023 12:48 AM PULPWOOD CUTTER us Faustino Herrera MD LAB BLOOD ORDERABLES Final Result Performing Organization Address [facility] Co de Phone Number [facility] [place] [place] [address] * Lactate (05/07/2023 12:35 AM PULPWOOD CUTTER) Lactate 1.2 0.7 - 2.0 mmol/L [facility] Blood 05/07/2023 12:3 5 AM PULPWOOD CUTTER 05/07/2023 12:48 AM PULPWOOD CUTTER us Alonzo Duncan MD LAB BLOOD ORDERABLES Fin al Result Performing Organization Address [facility] de Phone Number [facility] [place] [place] [address] * (ABNORMAL) Triglycerides (05/07/2023 12:35 AM PULPWOOD CUTTER) Triglycerides 346(H) <=149 mg/dL [facility] Comment: Interpretive Data Ages < or = [...] on 2018. Blood 05/07/2023 12:3 5 AM PULPWOOD CUTTER 05/07/2023 12:47 AM PULPWOOD CUTTER us Sheila BRADFORD LAB BLOOD ORDERABLE S Final Result JAIRON ERWIN [facility] [place] [address] * MRI Spine Total Complete WO Contrast (05/07/2023 12:10 AM PULPWOOD CUTTER) Anatomical Region Laterality Modality Spine N/A Magnetic Resonan ce 05/07/2023 8:59 AM PULPWOOD CUTTER Addenda Addendum by Veronica Hall MD on 05/08/2023 12:24 PM PULPWOOD CUTTER ADDENDUM Diffusion-weighted images are performed. ??No evidence of cord ischemia. Electronically signed by: Veronica Hall M.D. Impressions 05/07/2023 10:15 AM PULPWOOD CUTTER 1. ??Focal displacement of the cauda equina [...] Veronica Hall M.D. Narrative 05/07/2023 10:15 AM PULPWOOD CUTTER EXAMINATION: 1. Magnetic resonance imaging (MRI) of [...] XR Chest 1 View (05/06/2023 10:08 PM PULPWOOD CUTTER) Anatomical Region Laterality Modality Body, Chest N/A Digital Radiogra phy 05/07/2023 7:11 AM PULPWOOD CUTTER Impressions 05/07/2023 7:11 AM PULPWOOD CUTTER The current study is compared with the [...] Floridalma Oliva M.D. Narrative 05/07/2023 7:11 AM PULPWOOD CUTTER EXAMINATION: 1 view chest radiograph Procedure Note [...] Re sult * INTUBATION (05/06/2023 9:36 PM PULPWOOD CUTTER) Narrative Dalton Locke MD - 05/06/2023 9:36 PM PULPWOOD CUTTER Dustin Souza, DO ? 05/06/2023 ??9:39 PM Intubation Date/Time: 05/06/2023 9:36 PM Performed by: Dustin Souza DO Authorized by: Dustin Souza DO ?? [place] Protocol: RN Notified of Procedure: yes ?? [...] XR Chest 1 View (05/06/2023 7:41 PM PULPWOOD CUTTER) Anatomical Region Laterality Modality Body, Chest N/A Computed Radiogr aphy 05/06/2023 8:04 PM PULPWOOD CUTTER Impressions 05/06/2023 8:04 PM PULPWOOD CUTTER The current study is compared with the prior radiograph dated ??05/05/2023. ??The heart is mildly enlarged there is a prominent aorta with an endoluminal aortic stent graft in place. ??Vascular stent is also seen superimposing arch vessel. ??There is no mass or lymphadenopathy no pulmonary edema no effusions. ??There is no pneumothorax.. Electronically signed by: Floridalma Oliva M.D. Narrative 05/06/2023 8:04 PM PULPWOOD CUTTER EXAMINATION: 1 view chest radiograph Procedure Note [...] (ABNORMAL) Blood gas, arterial (05/06/2023 7:22 PM PULPWOOD CUTTER) pH, Art 7.54(H) 7.35 - 7.[address] [facility] PCO2, Arterial 39 35 - 45 mmHg [facility] PO2, Arterial 118(H) 83 - 108 mmHg [facility] HCO3 Art (Calculated) 34(H) 20 - 30 mmol/L [facility] BE, art 10 mmol/L [facility] Comment: Interpretive Data No Reference Range Established Current Interpretive Data was last revised on 2017 O2 Sat Art (Measured) 99(H) 90 - 95 % [facility] Blood 05/06/2023 7:22 PM PULPWOOD CUTTER 05/06/2023 7:29 PM PULPWOOD CUTTER us Faustino Herrera MD LAB BLOOD ORDERABLES Final Result [facility] [place] [address] * Potassium, whole blood (05/06/2023 7:22 PM PULPWOOD CUTTER) Potassium, bld 3.8 3.3 - 4.9 mmol/L [facility] Blood 05/06/2023 7:22 PM PULPWOOD CUTTER 05/06/2023 7:29 PM PULPWOOD CUTTER us Anderson Tolentino Jr., TREE LAB BLOOD ORDERABLE S Final Result Performing Organization Address City/[facility]/ZIP Co de Phone Number [facility] [place] [place] [address] * (ABNORMAL) Blood gas, arterial (05/06/2023 4:35 PM PULPWOOD CUTTER) pH, Art 7.51(H) 7.35 - 7.[address] [facility] PCO2, Arterial 42 35 - 45 mmHg [facility] PO2, Arterial 72(L) 83 - 108 mmHg [facility] HCO3 Art (Calculated) 34(H) 20 - 30 mmol/L [facility] BE, art 9 mmol/L [facility] Comment: Interpretive Data No Reference Range Established Current Interpretive Data was last revised on 2017 O2 Sat Art (Measured) 96(H) 90 - 95 % [facility] Blood 05/06/2023 4:35 PM PULPWOOD CUTTER 05/06/2023 4:43 PM PULPWOOD CUTTER Faustino Herrera MD LAB BLOOD ORDERABLES Final Result Performing Organization Address [facility] Co de Phone Number [facility] [place] [address] * Potassium, whole blood (05/06/2023 4:35 PM PULPWOOD CUTTER) Potassium, bld 4.0 3.3 - 4.9 mmol/L [facility] Blood 05/06/2023 4:35 PM PULPWOOD CUTTER 05/06/2023 4:43 PM PULPWOOD CUTTER Anderson Tolentino Jr., NP LAB BLOOD ORDERABLE S Final Result Performing Organization Address [facility] Co de Phone Number [facility] [place] [address] * Potassium, whole blood (05/06/2023 10:30 AM PULPWOOD CUTTER) Potassium, bld 3.5 3.3 - 4.9 mmol/L [facility] Blood 05/06/2023 10:3 0 AM PULPWOOD CUTTER 05/06/2023 10:38 AM PULPWOOD CUTTER Anderson Tolentino Jr., NP LAB BLOOD ORDERABLE S Edited Result - Final Performing Organization Address [facility] [place] [address] * (ABNORMAL) Blood gas, arterial (05/06/2023 10:30 AM PULPWOOD CUTTER) pH, Art 7.48(H) 7.35 - 7.45 [facility] PCO2, Arterial 45 35 - 45 mmHg [facility] PO2, Arterial 98 83 - 108 mmHg [facility] HCO3 Art (Calculated) 34(H) 20 - 30 mmol/L [facility] BE, art 9 mmol/L [facility] Comment: Interpretive Data No Reference Range Established Current Interpretive Data was last revised on 2017 O2 Sat Art (Measured) 98(H) 90 - 95 % [facility] Blood 05/06/2023 10:3 0 AM PULPWOOD CUTTER 05/06/2023 10:38 AM PULPWOOD CUTTER us Faustino Herrera MD LAB BLOOD ORDERABLES Final Result [facility] Department [place] [employer] [place] [address] * Potassium, whole blood (05/06/2023 6:07 AM PULPWOOD CUTTER) Potassium, bld 3.4 3.3 - 4.9 mmol/L [facility] Blood 05/06/2023 6:07 AM PULPWOOD CUTTER 05/06/2023 6:21 AM PULPWOOD CUTTER Anderson Tolentino Jr., TREE LAB BLOOD ORDERABLE S Final Result Performing Organization Address [facility] Co de Phone Number [facility] [place] [employer] [place] [address] * (ABNORMAL) POC Blood Gas and Chemistries, Arterial - (05/06/2023 1:32 AM PULPWOOD CUTTER) pH, Art POC 7.48(H) 7.35 - 7.45 [facility] pCO2, Art POC 47(H) 35 - 45 mmHg [facility] pO2, Art POC 65(L) 83 - 108 mmHg [facility] Na, POC 141 135 - 145 mmol/L [facility] K POC 3.5 3.3 - 4.9 mmol/L [facility] Comment: Interpretive Data This method is not able to assess for hemolysis, which may falsely increase potassium concentrations. If further testing is needed to evaluate this result, consider in-laboratory plasma potassium. Current Interpretive Data was last revised on 2022. Cl, POC 101 97 - 110 mmol/L [facility] Ionized Ca, POC 4.27(L) 4.50 - 5.10 mg/dL [facility] Glucose, POC 122 70 - 199 mg/dL [facility] Lactate, POC 0.7 0.7 - 2.2 mmol/L [facility] SO2 (natalia) arterial 96(H) 90 - 95 % [facility] Base excess, POC 10.2 mmol/L [facility] HCO3, Art POC 35(H) 20 - 30 mmol/L [facility] Hct, POC 32.0(L) 41.4 - 51.6 % [facility] O2 Sat, Art POC (Calc) 94 % [facility] Total Hb, POC 10.7(L) 13.8 - 17.2 g/dL [facility] Blood 05/06/2023 1:32 AM PULPWOOD CUTTER 05/06/2023 1:32 AM PULPWOOD CUTTER Faustino Herrera MD LAB POCT ORDERABLES - ROSIE CE Final Result [facility] [place] [address] * (ABNORMAL) Troponin I high-sensitivity 6-hour (05/06/2023 1:28 AM PULPWOOD CUTTER) Trop I hs 61(H) <=35 ng/L [facility] Comment: Interpretive Data For further [facility] resources including the diagnostic algorithm and an aid in interpretation, copy and paste this link: https://bjhlab.testcatalog.org/show/[email or web address] Current Interpretive Data last revised 2019. Trop I hs delta -13 ng/L [facility] Trop I hs interp Equivocal [facility] Blood 05/06/2023 1:28 AM PULPWOOD CUTTER 05/06/2023 1:46 AM PULPWOOD CUTTER Faustino Herrera MD LAB BLOOD ORDERABLES Final Result [facility] [place] [address] * (ABNORMAL) CBC without differential (05/06/2023 1:28 AM PULPWOOD CUTTER) [facility] WBC 23.8(H) 3.8 - 9.9 K/cumm [facility] Hgb 10.5(L) 13.0 - 17.5 g/dL [facility] Comment: Interpretive Data A reference range for this assay has not been established for patients with an unknown legal sex. Please refer to the laboratory test catalog for established sex-specific reference intervals. Current interpretive data was last revised on 2023. Hct 31.2(L) 38.9 - 50.3 % [facility] Comment: Interpretive Data A reference range for this assay has not been established for patients with an unknown legal sex. Please refer to the laboratory test catalog for established sex-specific reference intervals. Current interpretive data was last revised on 2023. Plt 193 150 - 400 K/cumm [facility] MPV 10.7 9.1 - 12.3 fL [facility] RBC 3.46(L) 4.30 - 5.80 M/cumm [facility] Comment: Interpretive Data A reference range for this assay has not been established for patients with an unknown legal sex. Please refer to the laboratory test catalog for established sex-specific reference intervals. Current interpretive data was last revised on 2023. MCV 90.2 81.3 - 96.4 fL [facility] MCH 30.3 27.1 - 33.3 pg [facility] MCHC 33.7 32.3 - 35.7 g/dL [facility] RDW CV 13.4 11.1 - 14.9 % [facility] RDW SD 44.2 35.7 - 48.1 fL [facility] NRBC abs 0.14(H) 0.00 - 0.01 K/cumm [facility] Blood 05/06/2023 1:28 AM PULPWOOD CUTTER 05/06/2023 1:46 AM PULPWOOD CUTTER us Faustino Herrera MD LAB BLOOD ORDERABLES Final Result Performing Organization Address [facility] [place] [address] * Transfuse platelets (05/05/2023 11:48 PM PULPWOOD CUTTER) Blood us Faustino Herrera MD BLOOD TRANSFUSION ORDERABL ES Final Result Performing Organization Address [facility] de Phone Number [facility] [employer] [place] [address] * Transfuse platelets: 2 Units (05/05/2023 11:48 PM PULPWOOD CUTTER) Blood us Faustino Herrera MD BLOOD TRANSFUSION ORDERABL ES Final Result * Transfuse platelets (05/05/2023 11:39 PM PULPWOOD CUTTER) Blood us Faustino Herrera MD BLOOD TRANSFUSION ORDERABL ES Final Result Performing Organization Address [facility] de Phone Number [facility] Department [place] [employer] [place] [address] * Transfuse RBC (05/05/2023 11:18 PM PULPWOOD CUTTER) Blood us Faustino Herrera MD BLOOD TRANSFUSION ORDERABL ES Final Result Performing Organization Address [facility] de Phone Number [facility] Department [place] [employer] [place] [address] * Transfuse RBC: 1 Units (05/05/2023 11:18 PM PULPWOOD CUTTER) Blood Result Misty Herrera MD BLOOD TRANSFUSION ORDERABL ES Final Result * (ABNORMAL) POC Blood Gas and Chemistries, Arterial - (05/05/2023 9:15 PM PULPWOOD CUTTER) pH, Art POC 7.46(H) 7.35 - 7.45 [facility] pCO2, Art POC 48(H) 35 - [address] [facility] pO2, Art POC 128(H) 83 - 108 mmHg [facility] Na, POC 140 135 - 145 mmol/L [facility] K POC 3.8 3.3 - 4.9 mmol/L [facility] Comment: Interpretive Data This method is not able to assess for hemolysis, which may falsely increase potassium concentrations. If further testing is needed to evaluate this result, consider in-laboratory plasma potassium. Current Interpretive Data was last revised on 2022. Cl, POC 102 97 - 110 mmol/L [facility] Ionized Ca, POC 4.49(L) 4.50 - 5.10 mg/dL [facility] Glucose, POC 140 70 - 199 mg/dL [facility] Lactate, POC 0.8 0.7 - 2.2 mmol/L [facility] SO2 (natalia) arterial 100(H) 90 - 95 % [facility] Base excess, POC 9.1 mmol/L [facility] HCO3, Art POC 34(H) 20 - 30 mmol/L [facility] Hct, POC 30.0(L) 41.4 - 51.6 % [facility] O2 Sat, Art POC (Calc) 99 % [facility] Total Hb, POC 9.9(L) 13.8 - 17.2 g/dL [facility] Blood 05/05/2023 9:15 PM PULPWOOD CUTTER 05/05/2023 9:15 PM PULPWOOD CUTTER us Faustino Herrera MD LAB POCT ORDERABLES - ROSIE CE Final Result [facility] [place] [address] * (ABNORMAL) Troponin I high-sensitivity 2-hour (05/05/2023 9:15 PM PULPWOOD CUTTER) Pathologist [facility] Trop I hs 68(H) <=35 ng/L [facility] Comment: Interpretive Data For further [facility]I resources including the diagnostic algorithm and an aid in interpretation, copy and paste this link: https://bjhlab.testcatalog.org/show/[email or web address] Current Interpretive Data last revised 2019. Trop I hs delta -6 ng/L [facility] Trop I hs interp Equivocal [facility] Blood 05/05/2023 9:15 PM PULPWOOD CUTTER 05/05/2023 9:38 PM PULPWOOD CUTTER Faustino Herrera MD LAB BLOOD ORDERABLES Final Result Performing Organization Address [facility] de Phone Number [facility] [place] [place] [address] * Prepare platelets: 2 Units (05/05/2023 8:17 PM PULPWOOD CUTTER) Pathologist [facility] [facility] Product code [id number] Unit Number [id number] Product Blood Type APOS [facility] Dispense Status PRESUMED TRANSFUSED [facility] Blood (Blood, Venous) 05/05/2023 8:17 PM [facility] C[facility]TER 05/05/2023 8:17 PM [facility] Narrative [facility] - 05/06/2023 4:02 PM [facility] C[facility]TER Specify Procedure:->Lumbar Drain Are special requirements needed? (all products are leukoreduced)->No Date required:-20230505 PLT # of Units:-2-Units Reasons:-Hold for procedure (specify procedure)} Faustino Herrera MD BLOOD BANK PRODUCT ORDERAB LES Final Result Performing Organization Address [facility] de Phone Number [facility] [place] [address] * aPTT (05/05/2023 8:14 PM PULPWOOD CUTTER) aPTT 35 28 - 38 sec [facility] Comment: Interpretive Data Heparin therapeutic range: 66.0 - 100.0 seconds. Range based on correlation with therapeutic heparin activity range of 0.3 - 0.7 Units/mL. Current interpretive data was last revised on 2023. Blood 05/05/2023 8:14 PM [facility]WOOD CUTTER 05/05/2023 8:22 PM [facility] C[facility]TER Faustino Herrera MD LAB BLOOD ORDERABLES Final Result Performing Organization Address [facility] [place] [address] * (ABNORMAL) Protime-INR (05/05/2023 8:14 PM PULPWOOD CUTTER) Pathologist [facility] PT 16.9(H) 10.3 - 13.7 sec [facility] Comment: No clot detected in sample Repeated and verified - [id number] - 05/05/23, 8:59 PM INR 1.48(H) 0.90 - 1.20 [facility] Comment: No clot detected in sample Repeated and verified - [id number] - 05/05/23, 8:59 PM Interpretive data Oral anticoagulant therapeutic ranges: Venous thromboembolism prophylaxis or treatment: 2.0-3.0 CARDIOLOGY Standard range: 2.0-3.0 High-intensity range: 2.5-3.5 Refer to indication-specific guidelines for appropriate target ranges for prosthetic heart valve replacement. Current interpretive data was last revised on 2019. Blood 05/05/2023 8:14 PM [facility] CUTTER 05/05/2023 8:22 PM [facility] C[facility]TER Faustino Herrera MD LAB BLOOD ORDERABLES Final Result Performing Organization Address [facility] de Phone Number [facility] [employer] [place] [address] * Prepare RBC: 1 Units (05/05/2023 7:56 PM PULPWOOD CUTTER) Pathologist [facility] Product code [id number] Unit Number [id number] [facility] Product Blood Type APOS [facility] Dispense Status PRESUMED TRANSFUSED [facility] Blood 05/05/2023 7:56 PM [facility] C[facility]TER 05/05/2023 7:56 PM [facility] C[facility]TER Narrative [facility] - 05/06/2023 12:46 AM P[facility] C[facility]TER Other indication->Protocol for c/f spinal cord ischemia Are special requirements needed? (All products are leukoreduced and CMV- safe)- >No Date required:-20230505 LRRBC # of [id number] Reasons:-Other (specify)} Faustino Herrera MD BLOOD BANK PRODUCT ORDERAB LES Final Result [facility] [place] [address] * XR Chest 1 View (05/05/2023 7:43 PM PULPWOOD CUTTER) Anatomical Region Laterality Modality Body, Chest N/A Computed Radiogr aphy 05/06/2023 7:51 AM [facility] C[facility]TER Impressions 05/06/2023 7:51 AM [facility] C[facility]TER Comparison is made to prior chest radiograph [...] Ruthie Malone M.D. Narrative 05/06/2023 7:51 AM [facility] C[facility]TER EXAMINATION: 1 view chest radiograph Procedure Note [...] and Chemistries, Arterial - (05/05/2023 7:22 PM PULPWOOD CUTTER) pH, Art POC 7.49(H) 7.35 - 7.45 [facility] pCO2, Art POC 44 35 - 45 mmHg [facility] pO2, Art POC 87 83 - 108 mmHg [facility] Na, POC 140 135 - 145 mmol/L [facility] K POC 3.7 3.3 - 4.9 mmol/L [facility] Comment: Interpretive Data This method is not able to assess for hemolysis, which may falsely increase potassium concentrations. If further testing is needed to evaluate this result, consider in-laboratory plasma potassium. Current Interpretive Data was last revised on 2022. Cl, POC 101 97 - 110 mmol/L [facility] Ionized Ca, POC 4.20(L) 4.50 - 5.10 mg/dL [facility] Glucose, POC 140 70 - 199 mg/dL [facility] Lactate, POC 1.0 0.7 - 2.2 mmol/L [facility] SO2 (natalia) arterial 99(H) 90 - 95 % [facility] Base excess, POC 9.2 mmol/L [facility] HCO3, Art POC 34(H) 20 - 30 mmol/L [facility] Hct, POC 30.0(L) 41.4 - 51.6 % [facility] O2 Sat, Art POC (Calc) 97 % [facility] Total Hb, POC 9.9(L) 13.8 - 17.2 g/dL [facility] Blood 05/05/2023 7:22 PM [facility]WOOD CUTTER 05/05/2023 7:22 PM [facility] C[facility]TER us Faustino Herrera MD LAB POCT ORDERABLES - ROSIE CE Final Result [facility] [place] [address] * (ABNORMAL) Troponin I high-sensitivity series (baseline, 2hr, 4hr, 6hr) (05/05/2023 7:22 PM PULP[facility] CUTTER) Trop I hs 74(H) <=35 ng/L [facility] Comment: Interpretive Data For further hscTnI resources including the diagnostic algorithm and an aid in interpretation, copy and paste this link: [email or web address]/[email or web address] Current Interpretive Data last revised 2019. Blood 05/05/2023 7:22 PM P[facility]PWOOD CUTTER 05/05/2023 7:54 PM P[facility] CUTTER us Faustino Herrera MD LAB BLOOD ORDERABLES Final Result Performing Organization Address [facility] Co de Phone Number [facility] [place] [address] * ECG 12 lead (05/05/2023 6:56 PM PULPWOOD CUTTER) Pathologist [facility] Ventricular Rate EKG/Min 81 BPM [facility] Atrial Rate 81 BPM [facility] DE-Interval (MSEC) 164 ms [facility] QRS-Interval (MSEC) 98 ms [facility] QT-Interval (MSEC) 384 ms [facility] QTc 446 ms [facility] P [place] 57 degrees [facility] R [place] 8 degrees [facility] T [place] 187 degrees [facility] Diagnosis Normal sinus rhythm Left ventricular hypertrophy with repolarization abnormality ( [employer] product ) Abnormal ECG No previous ECGs available Confirmed by ADAM VALVERDE M.D ([id number]) on 05/13/2023 11:55:53 AM [facility] 05/05/2023 6:56 PM [facility]WO[facility] C[facility]TER 05/13/2023 11:55 AM [facility] C[facility]TER Faustino Herrera MD ECG ORDERABLES Final Resu lt Performing Organization Address [facility] Co de Phone Number [facility] * CTA Chest Abdomen Pelvis (05/05/2023 6:28 PM PULPWOOD CUTTER) Anatomical Region Laterality Modality Body N/A Computed Tomogra phy 05/05/2023 6:52 PM P[facility]WOOD CUTTER Impressions 05/05/2023 8:42 PM PULPWOOD CUTTER 1. ??Interval postprocedural changes of endovascular repair [...] Otoniel Avalos M.D. Narrative 05/05/2023 8:42 PM [facility] CUTTER EXAMINATION: CT ANGIOGRAPHY OF THE CHEST, ABDOMEN [...] the 3-D workstation and sent to the [employer] archival system. ?? COMPARISON: 05/02/2023 FINDINGS: ?? [...] WO CONTRAST W BUBBLE (05/05/2023 4:50 PM PULPWOOD CUTTER) Anatomical Region Laterality Modality Ultrasound 05/05/2023 12:0 0 PM P[facility] C[facility]TER Narrative 05/05/2023 5:06 PM [facility] C[facility]TER Patient name: Eriberto Chau Date of test: 05/05/2023 Type of test: Limited TTE [facility] #: 0 Date of : 1990 (M) Cylinder Press Feeder: Ellen Ely RDCS Referring Physician: FAUSTINO HERRERA MD Contrast Agent: Agitated Saline Bubble Study Performed Contrast Administered by: Oralia RN Supervised/Interpreted by: Trupti Ulloa MD Diagnosis: Location: [facility] Reason for test: Hypoxia, c/f cardiac shunt [...] 2=Hypo 3=Akinetic 4=Dyskin./Aneurysm 0=Not visualized) Parasternal Long [place]:MAS=1 BAS=1 MIL=1 GARO=1 Parasternal Short [place]:MAS=1 MIS=1 KY=1 MIL=1 MAL=1 MA=1 Apical 4 Chambers:=1 MIS=1 BIS=1 BAL=1 MAL=1 AL=1 AC=1 Apical 2 Chambers:AI=1 KY=1 BI=1 BA=1 MA=1 AA=1 AC=1 LV Global [...] MD By signing this report, the attending paint prepper certifies that he or she has personally supervised and interpreted the echocardiogram and has reviewed and or edited and agrees with the written comments contained within the report. Procedure Note Trupti Ulloa MD - 05/05/2023 Patient name: Eriberto Chau Date of test: 05/05/2023 Type of test: [facility] TTE [facility] #: 0 Date of : 1990 (M) [employer]yl[employer] Feeder: Ellen Ely RDCS Referring Physician: FAUSTINO HERRERA MD Contrast Agent: Agitated Saline Bubble Study Performed Contrast Administered by: Oralia FRASER Supervised/Interpreted by: Trupti Ulloa MD Diagnosis: Location: [facility] Reason for test: Hypoxia, c/f cardiac shunt [...] 2=Hypo 3=Akinetic 4=Dyskin./Aneurysm 0=Not visualized) Parasternal Long [place]:MAS=1 BAS=1 MIL=1 GARO=1 Parasternal Short [place]:MAS=1 MIS=1 KY=1 MIL=1 MAL=1 MA=1 Apical 4 Chambers:=1 MIS=1 BIS=1 BAL=1 MAL=1 AL=1 AC=1 Apical 2 Chambers:AI=1 KY=1 BI=1 BA=1 MA=1 AA=1 AC=1 LV Global [...] MD By signing this report, the attending paint prepper certifies that he or she has personally supervised and interpreted the echocardiogram and has reviewed and or edited and agrees with the written comments contained within the report. us Faustino Herrera MD CV ECHO PROCEDURES Final R esult * Critical Care (05/05/2023 1:24 PM PULPWOOD CUTTER) Narrative Carline Jerome MD - 05/05/2023 1:24 PM P[facility]WOOD CUTTER Carline Jerome MD ? 05/05/2023 ??1:25 PM Critical Care Performed by: Carline eJrome MD Authorized by: Carline Jerome MD ?? [...] plan with the ICU team and other medical/applications sales consultant staff, making frequent assessments and [...] Pneumonia PCR Tracheal aspirate (05/05/2023 11:27 AM PULPWOOD CUTTER) C. pneumoniae DNA Not Detected Not Detected [facility] Legionella pneumophila DNA Not Detected Not Detected [facility] M. pneumoniae DNA Not Detected Not Detected [facility] Adenovirus DNA Not Detected Not Detected [facility] Coronavirus (229E, OC43, HKU1, NL63) RNA Not Detected Not Detected [facility] Metapneumovirus RNA Not Detected Not Detected [facility] Rhinovirus/Enterov irus RNA Not Detected Not Detected [facility] Influenza A RNA Not Detected Not Detected [facility] Influenza B RNA Not Detected Not Detected [facility] Parainfluenza virus (1-4) RNA Not Detected Not Detected [facility] RSV RNA Not Detected Not Detected [facility] Tracheal aspirate 05/05/2023 11:27 AM PULPWOOD CUTTER 05/05/2023 2:45 PM P[facility]WOOD CUTTER Narrative [facility] - 05/05/2023 4:23 PM PULPWOOD CUTTER The [employer] Pneumonia Panel is a multiplexed [...] of this assay have been determined by [facility]. Current interpretive data was last revised on 2021. Sheila BRADFORD LAB MICROBIOLOGY - GENERAL ORDERABLES Final Result [facility] [place] [address] * (ABNORMAL) Pneumonia PCR with aerobic culture and Gram stain Tracheal aspirate (05/05/2023 11:27 AMCST) Direct Specimen Exam Molecular Analysis: 10^6 copies/mL Haemophilus influenzae Correlation of molecular analysis with final culture results is recommended. [facility] Direct Specimen Exam Stain: Abundant polymorphonuclear leukocytes seen. No squamous epithelial cells seen. No organisms seen. [facility] Report Final Report: Insignificant growth based on current clinical standards. (.) [facility] Tracheal aspirate 05/05/2023 11:27 AM PULPWOOD CUTTER 05/05/2023 12:55 PM PULPWOOD CUTTER Narrative [facility] - 05/07/2023 11:21 AM PULPWOOD CUTTER When rapid molecular testing results are reported, testing completed using the [email or web address] Pneumonia Panel. ??This molecular assay detects: Acinetobacter [...] results and susceptibility testing is recommended. The EcorithmArray Pneumonia Panel is cleared by the US Food and Drug Administration and its performance characteristics have been confirmed by the [facility]. ??The performance of the FilmArray Pneumonia Panel has not been established for monitoring treatment of infection and bacterial nucleic acids may persist independent of organism viability. Sheila [facility]ADF[facility] LAB MICROBIOLOGY - GENERAL ORDERABLES Final Result [facility] [place] [address] * DE DIAGNOSTIC LUMBAR SPINAL PUNCTURE (05/05/2023 10:05 AM PULPWOOD CUTTER) Narrative Shira Dodson MD - 05/05/2023 10:05 AM P[facility]PWOOD CUTTER Shira Dodson MD ? 2023 ??3:17 PM Lumbar Drain Date/Time: 05/05/2023 10:05 AM Performed by: Shira Dodson MD Authorized by: Shira Dodson MD ?? [place] Protocol: RN Notified of Procedure: yes ?? [...] (ABNORMAL) Blood gas, arterial (05/05/2023 8:21 AM PULPWOOD CUTTER) pH, Art 7.42 7.35 - 7.45 [facility] PCO2, Arterial 52(H) 35 - 45 mmHg [facility] PO2, Arterial 117(H) 83 - 108 mmHg [facility] HCO3 Art (Calculated) 34(H) 20 - 30 mmol/L [facility] BE, art 8 mmol/L [facility] Comment: Interpretive Data No Reference Range Established Current Interpretive Data was last revised on 2017 O2 Sat Art (Measured) 99(H) 90 - 95 % [facility] Blood 05/05/2023 8:21 AM PULPWOOD CUTTER 05/05/2023 8:28 AM PULPWOOD CUTTER us Faustino Herrera MD LAB BLOOD ORDERABLES Final Result [facility] [place] [address] * Lactate (05/05/2023 8:21 AM PULPWOOD CUTTER) Lactate 0.8 0.7 - 2.0 mmol/L [facility] Blood 05/05/2023 8:21 AM PULPWOOD CUTTER 05/05/2023 8:27 AM PULPWOOD CUTTER Alonzo Duncan MD LAB BLOOD ORDERABLES Fin al Result [facility] [place] [place] [address] * (ABNORMAL) Blood gas, arterial (05/05/2023 4:51 AM PULPWOOD CUTTER) Pathologist [facility] pH, Art 7.40 7.35 - 7.45 [facility] PCO2, Arterial 51(H) 35 - 45 mmHg [facility] PO2, Arterial 118(H) 83 - 108 mmHg [facility] HCO3 Art (Calculated) 32(H) 20 - 30 mmol/L [facility] BE, art 5 mmol/L [facility] Comment: Interpretive Data No Reference Range Established Current Interpretive Data was last revised on 2017 O2 Sat Art (Measured) 99(H) 90 - 95 % [facility] Blood 05/05/2023 4:51 AM PULPWOOD CUTTER 05/05/2023 5:43 AM PULPWOOD CUTTER us Faustino Herrera MD LAB BLOOD ORDERABLES Final Result Performing Organization Address [facility]/[place] [address] * Potassium, whole blood (05/05/2023 4:51 AM PULPWOOD CUTTER) [facility] Potassium, bld 4.2 3.3 - 4.9 mmol/L [facility] Blood 05/05/2023 4:51 AM PULPWOOD CUTTER 05/05/2023 5:43 AM PULPWOOD CUTTER us Anderson Tolentino Jr., TREE LAB BLOOD ORDERABLE S Edited Result - Final Performing Organization Address [facility]/[place] [address] * eGFR (05/05/2023 12:12 AM PULPWOOD CUTTER) [facility] eGFR 89 >=60 mL/min/1. 73 m2 [facility] Comment: Interpretive Data Reference Interval Normal ?>/= [...] reviewed 2021. Blood 05/05/2023 12:1 2 AM PULPWOOD CUTTER 05/05/2023 12:20 AM PULPWOOD CUTTER us Alonzo Duncan MD LAB BLOOD ORDERABLES Fin al Result Performing Organization Address City/[facility] Co de Phone Number [facility] [place] [address] * Phosphorus (05/05/2023 12:12 AM PULPWOOD CUTTER) Phosphorus, pl 2.9 2.3 - 4.5 mg/dL [facility] Blood 05/05/2023 12:1 2 AM PULPWOOD CUTTER 05/05/2023 12:20 AM PULPWOOD CUTTER Faustino Herrera MD LAB BLOOD ORDERABLES Final Result [facility] [place] [address] * Magnesium (05/05/2023 12:12 AM PULPWOOD CUTTER) Pathologist [facility] Magnesium 1.8 1.4 - 2.5 mg/dL [facility] Blood 05/05/2023 12:1 2 AM PULPWOOD CUTTER 05/05/2023 12:20 AM PULPWOOD CUTTER Faustino Herrera MD LAB BLOOD ORDERABLES Final Result Performing Organization Address [facility] Co de Phone Number [facility] [place] [address] * (ABNORMAL) Basic metabolic panel (05/05/2023 12:12 AM PULPWOOD CUTTER) [facility] Sodium 145 135 - 145 mmol/L [facility] Potassium, pl 4.4 3.3 - 4.9 mmol/L [facility] Chloride 106 97 - 110 mmol/L [facility] CO2 30 22 - 32 mmol/L [facility] Anion gap 9 2 - 15 mmol/L [facility] BUN 9 6 - 25 mg/dL [facility] Creatinine 1.14 0.80 - 1.30 mg/dL [facility] Glucose 126 70 - 199 mg/dL [facility] [...] 2022. Calcium 8.1(L) 8.5 - 10.3 mg/dL [facility] Blood 05/05/2023 12:1 2 AM PULPWOOD CUTTER 05/05/2023 12:20 AM PULPWOOD CUTTER us Faustino Herrera MD LAB BLOOD ORDERABLES Final Result [facility] [place] [address] * (ABNORMAL) CBC without differential (05/05/2023 12:12 AM PULPWOOD CUTTER) WBC 16.4(H) 3.8 - 9.9 K/cumm [facility] Hgb 9.4(L) 13.0 - 17.5 g/dL [facility] Comment: Interpretive Data A reference range for this assay has not been established for patients with an unknown legal sex. Please refer to the laboratory test catalog for established sex-specific reference intervals. Current interpretive data was last revised on 2023. Hct 27.9(L) 38.9 - 50.3 % [facility] Comment: Interpretive Data A reference range for this assay has not been established for patients with an unknown legal sex. Please refer to the laboratory test catalog for established sex-specific reference intervals. Current interpretive data was last revised on 2023. Plt 132(L) 150 - 400 K/cumm [facility] MPV 10.3 9.1 - 12.3 fL [facility] RBC 3.10(L) 4.30 - 5.80 M/cumm [facility] Comment: Interpretive Data A reference range for this assay has not been established for patients with an unknown legal sex. Please refer to the laboratory test catalog for established sex-specific reference intervals. Current interpretive data was last revised on 2023. MCV 90.0 81.3 - 96.4 fL [facility] MCH 30.3 27.1 - 33.3 pg [facility] MCHC 33.7 32.3 - 35.7 g/dL [facility] RDW CV 13.3 11.1 - 14.9 % [facility] RDW SD 43.4 35.7 - 48.1 fL [facility] NRBC abs 0.04(H) 0.00 - 0.01 K/cumm [facility] Blood 05/05/2023 12:1 2 AM PULPWOOD CUTTER 05/05/2023 12:20 AM PULPWOOD CUTTER us Faustino Herrera MD LAB BLOOD ORDERABLES Final Result [facility] [place] [place] [address] * (ABNORMAL) Blood gas, arterial (05/04/2023 10:30 PM PULPWOOD CUTTER) pH, Art 7.40 7.35 - 7.45 [facility] PCO2, Arterial 46(H) 35 - 45 mmHg [facility] PO2, Arterial 101 83 - 108 mmHg [facility] HCO3 Art (Calculated) 30 20 - 30 mmol/L [facility] BE, art 4 mmol/L [facility] Comment: Interpretive Data No Reference Range Established Current Interpretive Data was last revised on 2017 O2 Sat Art (Measured) 99(H) 90 - 95 % [facility] Blood 05/04/2023 10:3 0 PM PULPWOOD CUTTER 05/04/2023 10:39 PM PULPWOOD CUTTER us Faustino Herrera MD LAB BLOOD ORDERABLES Final Result [facility] [place] [address] * Potassium, whole blood (05/04/2023 10:30 PM PULPWOOD CUTTER) Pathologist [facility] Potassium, bld 4.6 3.3 - 4.9 mmol/L [facility] Blood 05/04/2023 10:3 0 PM PULPWOOD CUTTER 05/04/2023 10:39 PM PULPWOOD CUTTER us Anderson Tolentino Jr., HEARING HEALTH TECHNICIAN LAB BLOOD ORDERABLE S Final Result [facility] [place] [address] * (ABNORMAL) Triglycerides (05/04/2023 10:30 PM PULPWOOD CUTTER) Triglycerides 179(H) <=149 mg/dL [facility] Comment: Interpretive Data Ages < or [...] on 2018. Blood 05/04/2023 10:3 0 PM PULPWOOD CUTTER 05/04/2023 10:42 PM PULPWOOD CUTTER Radha Duran NP LAB BLOOD ORDERABLES Final Re sult Performing Organization Address City/State/[facility] Co de Phone Number [facility] [place] [address] * XR Chest 1 View (05/04/2023 8:58 PM PULPWOOD CUTTER) Anatomical Region Laterality Modality Body, Chest N/A Computed Radiogr aphy 05/05/2023 9:48 AM PULPWOOD CUTTER Impressions 05/05/2023 11:41 AM PULPWOOD CUTTER The current study is compared with the [...] Marlee Jimenez M.D. Narrative 05/05/2023 11:41 AM PULPWOOD CUTTER EXAMINATION: 1 view chest radiograph Procedure Note [...] * Potassium, whole blood (05/04/2023 6:31 PM PULPWOOD CUTTER) [facility] Potassium, bld 3.8 3.3 - 4.9 mmol/L [facility] Blood 05/04/2023 6:31 PM PULPWOOD CUTTER 05/04/2023 6:39 PM PULPWOOD CUTTER us Anderson Tolentino Jr., NP LAB BLOOD ORDERABLE S Final Result [facility] [place] [address] * Critical Care (05/04/2023 3:00 PM PULPWOOD CUTTER) Narrative Carline Jerome MD - 05/04/2023 3:00 PM PULPWOOD CUTTER Carline Jerome MD ? 05/04/2023 ??3:01 PM [...] plan with the ICU team and other medical/applications sales consultant staff, making frequent assessments and [...] Result * POCT glucose (05/04/2023 1:42 PM PULPWOOD CUTTER) [facility] Glucose, POC 108 70 - 199 mg/dL [facility] Blood 05/04/2023 1:42 PM PULPWOOD CUTTER 05/04/2023 1:42 PM PULPWOOD CUTTER Faustino Herrera MD LAB POCT ORDERABLES - ROSIE CE Final Result Performing Organization Address [facility] Co de Phone Number [facility] [place] [address] * Potassium, whole blood (05/04/2023 11:27 AM PULPWOOD CUTTER) [facility] Potassium, bld 4.2 3.3 - 4.9 mmol/L [facility] Comment:Hemolyzed; results m ay be falsely elevated. Blood 05/04/2023 11:2 7 AM PULPWOOD CUTTER 05/04/2023 11:34 AM PULPWOOD CUTTER Anderson Tolentino Jr., HEARING HEALTH TECHNICIAN LAB BLOOD ORDERABLE S Final Result Performing Organization Address City/[facility] Co de Phone Number [facility] Department [place] [address] * (ABNORMAL) Blood gas, arterial (05/04/2023 11:23 AM PULPWOOD CUTTER) [facility] pH, Art 7.33(L) 7.35 - 7.45 [facility] PCO2, Arterial 44 35 - 45 mmHg [facility] PO2, Arterial 177(H) 83 - 108 mmHg [facility] HCO3 Art (Calculated) 24 20 - 30 mmol/L [facility] BE, art -2 mmol/L [facility] Comment: Interpretive Data No Reference Range Established Current Interpretive Data was last revised on 2017 O2 Sat Art (Measured) 99(H) 90 - 95 % [facility] Blood 05/04/2023 11:2 3 AM P[facility]PWO[facility] CUTTER 05/04/2023 11:34 AM PULPWOOD CUTTER Result [facility] Faustino Herrera MD LAB BLOOD ORDERABLES Final Result Performing Organization Address [facility] de Phone Number [facility] [place] [address] * Type and screen (05/04/2023 11:23 AM PULPWOOD CUTTER) [facility] ABO Rh A Positive Ellen, indirect Negative [facility] Blood 05/04/2023 11:2 3 AM P[facility]WOOD CUTTER 05/04/2023 11:38 AM [facility] C[facility]TER Narrative [facility] - 05/04/2023 12:43 PM P[facility]WOOD CUTTER Has the patient had Daratumumab or Isatuximab in the past 6 months?->Unknown Result [facility] Faustino Herrera MD LAB BLOOD BANK TEST ORDERA BLES Final Result [facility] [place] [address] * POCT glucose (05/04/2023 7:48 AM PULPWOOD CUTTER) [facility] Glucose, POC 99 70 - 199 mg/dL [facility] Blood 05/04/2023 7:48 AM PULPWOOD CUTTER 05/04/2023 7:48 AM [facility] C[facility]TER Faustino Herrera MD LAB POCT ORDERABLES - ROSIE CE Final Result Performing Organization Address City/[facility]/ZIP Co de Phone Number [facility] [place] [address] * (ABNORMAL) POC Blood Gas and Chemistries, Arterial - (05/04/2023 3:03 AM PULPWOOD CUTTER) pH, Art POC 7.34(L) 7.35 - 7.45 [facility] pCO2, Art POC 38 35 - 45 mmHg [facility] pO2, Art POC 73(L) 83 - [address] [facility] Na, POC 141 135 - 145 [...] Cl, POC 112(H) 97 - 110 mmol/L [facility] Ionized Ca, POC 4.33(L) 4.50 - 5.10 mg/dL [facility] Glucose, POC 115 70 - 199 mg/dL [facility] Lactate, POC 0.8 0.7 - 2.2 mmol/L [facility] SO2 (natalia) arterial 97(H) 90 - 95 % [facility] Base excess, POC -4.8 mmol/L [facility] HCO3, Art POC 20 20 - 30 mmol/L [facility] Hct, POC 26.0(L) 41.4 - 51.6 % [facility] O2 Sat, Art POC (Calc) 94 % [facility] Total Hb, POC 8.7(L) 13.8 - 17.2 g/dL [facility] Blood 05/04/2023 3:03 AM P[facility] CUTTER 05/04/2023 3:03 AM [facility] C[facility]TER Faustino Herrera MD LAB POCT ORDERABLES - ROSIE CE Final Result Performing Organization Address City/[facility]/ZIP Co de Phone Number JAIRON [facility] [place] [address] * (ABNORMAL) Urinalysis, microscopic only (05/04/2023 2:14 AM PULPWOOD CUTTER) WBC, ur 0-5 0 - 5 /HPF [facility] RBC, ur >50(A) 0 - 2 /HPF [facility] Mucous, ur Present(A) [facility] Hyaline casts, ur 1-5 0 - 10 /LPF [facility] Urine 05/04/2023 2:14 AM P[facility]WOOD CUTTER 05/04/2023 2:21 AM PUL[facility]WOOD CUTTER us Faustino Herrera MD LAB URINE ORDERABLES Final Result [facility] [place] [address] * (ABNORMAL) Urinalysis reflex to microscopic (05/04/2023 2:14 AM PULPWOOD CUTTER) Color, ur Straw Yellow [facility] Clarity, ur Clear Clear [facility] Specific gravity, ur 1.011 1.003 - 1.030 [facility] pH, urine 5.5 [facility] Comment: Interpretive Data ? Urine pH is affected by diet, medications, systemic acid-base disturbances, and renal tubular function. ??pH may affect urinary stone formation. ??For example, urine pH below 6.0 may help reduce the tendency for calcium phosphate stones and pH greater than 6.0 may reduce the tendency for uric acid stone formation. Source: [facility] [employer] Current Interpretive Data was last revised on 2017 Protein, ur ql Trace Negative [facility] Glucose, ur ql Negative Negative [facility] Ketones, ur Negative Negative [facility] Bilirubin, ur Negative Negative [facility] Blood, ur 3+(A) Negative [facility] Urobilinogen, ur <2.0 <2.0 mg/dL [facility] Nitrite, ur Negative Negative [facility] Leukocyte esterase, ur Negative Negative [facility] UA reflex comment Reflex to microscopic UA will be performed. [facility] Urine 05/04/2023 2:14 AM PULPWOOD CUTTER 05/04/2023 2:21 AM P[facility]WO[facility] CUTTER us Faustino Herrera MD LAB URINE ORDERABLES Final Result Performing Organization Address [facility] de Phone Number [facility] [place] [address] * eGFR (05/04/2023 1:20 AM PULPWOOD CUTTER) eGFR 71 >=60 mL/min/1. 73 m2 [facility] Comment: Interpretive Data Reference Interval Normal ?>/= [...] last reviewed 2021. Blood 05/04/2023 1:20 AM PULPWOOD CUTTER 05/04/2023 1:42 AM PULP[facility]OD CUTTER us Alonzo Duncan MD LAB BLOOD ORDERABLES Fin al Result Performing Organization Address [facility] Co de Phone Number [facility] [place] [address] * (ABNORMAL) Blood gas, arterial (05/04/2023 1:20 AM PULPWOOD CUTTER) pH, Art 7.32(L) 7.35 - 7.45 [facility] PCO2, Arterial 42 35 - 45 mmHg [facility] PO2, Arterial 90 83 - 108 mmHg [facility] HCO3 Art (Calculated) 22 20 - 30 mmol/L [facility] BE, art -4 mmol/L [facility] Comment: Interpretive Data No Reference Range Established Current Interpretive Data was last revised on 2017 O2 Sat Art (Measured) 97(H) 90 - 95 % [facility] Blood 05/04/2023 1:20 AM P[facility]OD CUTTER 05/04/2023 1:44 AM [facility] C[facility]TER Faustino Herrera MD LAB BLOOD ORDERABLES Final Result [facility] [place] [address] * Blood culture Blood (05/04/2023 1:20 AM PULPWOOD CUTTER) Report Final Report: No growth [facility] Blood 05/04/2023 1:20 AM PULPWOOD CUTTER 05/04/2023 1:44 AM P[facility]WOOD CUTTER Narrative [facility] - 05/08/2023 7:01 AM PULPWOOD CUTTER Collection->Peripheral 1. ?Blood cultures are incubated for [...] organism identification may be performed using the Ravtiigene Gram-Positive Blood Culture Assay. This assay detects microbial DNA in positive blood culture broth via hybridization of target DNA to capture oligonucleotides on a microarray. This assay has been cleared by the [place] Food and Drug Administration and its performance characteristics have been verified by the [facility] Microbiology Laboratory. 5. ?For questions about this culture, contact the Microbiology Laboratory at [phone]. Interpretive data was last revised on 2019. Faustino Herrera MD LAB MICROBIOLOGY - GENERAL ORDERABLES Final Result [facility]IRON [facility] [place] [address] * Blood culture Blood (05/04/2023 1:20 AM PULPWOOD CUTTER) Report Final Report: No growth [facility] Blood 05/04/2023 1:20 AM PULPWOOD CUTTER 05/04/2023 1:44 AM PULPWOOD CUTTER Narrative [facility] - 05/08/2023 7:01 AM PULPWOOD CUTTER Collection->Peripheral 1. ?Blood cultures are incubated for [...] performance characteristics have been verified by the [facility]. 5. ?For questions about this culture, contact the Microbiology Laboratory at [phone]. Interpretive data was last revised on 2019. Faustino Herrera MD LAB MICROBIOLOGY - GENERAL ORDERABLES Final Result Performing Organization Address City/[facility] [place] [address] * Phosphorus (05/04/2023 1:20 AM PULPWOOD CUTTER) [facility] Phosphorus, pl 2.8 2.3 - 4.5 mg/dL [facility] Comment:Hemolyzed; result ma y be falsely elevated Blood 05/04/2023 1:20 AM PULPWOOD CUTTER 05/04/2023 1:42 AM P[facility] C[facility]TER Faustino Herrera MD LAB BLOOD ORDERABLES Final Result Performing Organization Address [facility] [place] [address] * Magnesium (05/04/2023 1:20 AM PULPWOOD CUTTER) [facility] Magnesium 2.0 1.4 - 2.5 mg/dL [facility] Blood 05/04/2023 1:20 AM PULPWOOD CUTTER 05/04/2023 1:42 AM P[facility] CUTTER Faustino Herrera MD LAB BLOOD ORDERABLES Final Result Performing Organization Address [facility] de Phone Number [facility] [place] [address] * (ABNORMAL) Basic metabolic panel (05/04/2023 1:20 AM PULPWOOD CUTTER) Pathologist [facility] Sodium 140 135 - 145 mmol/L [facility] Potassium, pl See Comment 3.3 - 4.9 mmol/L [facility] Comment:Credited; Hemolyzed Specimen Chloride 109 97 - 110 mmol/L [facility] CO2 23 22 - 32 mmol/L [facility] Anion gap 8 2 - 15 mmol/L [facility] BUN 9 6 - 25 mg/dL [facility] Creatinine 1.38(H) 0.80 - 1.30 mg/dL [facility] Glucose 92 70 - 199 mg/dL [facility] [...] 2022. Calcium 7.3(L) 8.5 - 10.3 mg/dL [facility] Blood 05/04/2023 1:20 AM PULPWOOD CUTTER 05/04/2023 1:42 AM P[facility] CUTTER Faustino Herrera MD LAB BLOOD ORDERABLES Final Result [facility] [place] [address] * (ABNORMAL) CBC without differential (05/04/2023 1:20 AM PULPWOOD CUTTER) [facility] WBC 13.5(H) 3.8 - 9.9 K/cumm [facility] Hgb 9.1(L) 13.0 - 17.5 g/dL [facility] Comment: Interpretive Data A reference range for this assay has not been established for patients with an unknown legal sex. Please refer to the laboratory test catalog for established sex-specific reference intervals. Current interpretive data was last revised on 2023. Hct 25.2(L) 38.9 - 50.3 % [facility] Comment: Interpretive Data A reference range for this assay has not been established for patients with an unknown legal sex. Please refer to the laboratory test catalog for established sex-specific reference intervals. Current interpretive data was last revised on 2023. Plt 115(L) 150 - 400 K/cumm [facility] MPV 10.6 9.1 - 12.3 fL [facility] RBC 2.89(L) 4.30 - 5.80 M/cumm [facility] Comment: Interpretive Data A reference range for this assay has not been established for patients with an unknown legal sex. Please refer to the laboratory test catalog for established sex-specific reference intervals. Current interpretive data was last revised on 2023. MCV 87.2 81.3 - 96.4 fL [facility] MCH 31.5 27.1 - 33.3 pg [facility] MCHC 36.1(H) 32.3 - 35.7 g/dL [facility] RDW CV 12.5 11.1 - 14.9 % [facility] RDW SD 40.1 35.7 - 48.1 fL [facility] NRBC abs 0.11(H) 0.00 - 0.01 K/cumm [facility] Blood 05/04/2023 1:20 AM PULPWOOD CUTTER 05/04/2023 1:42 AM P[facility] CUTTER Faustino Herrera MD LAB BLOOD ORDERABLES Final Result [facility] [place] [address] * (ABNORMAL) Triglycerides (05/04/2023 1:20 AM PULPWOOD CUTTER) Triglycerides 895(H) <=149 mg/dL [facility] Comment: Hemolyzed; result may be falsely elevated [...] revised on 2018. Blood 05/04/2023 1:20 AM PULPWOOD CUTTER 05/04/2023 1:42 AM PULPWOOD CUTTER us Nando Mijares MD LAB BLOOD ORDERABLES Albert jose f Result - Final [facility] [place] [address] * XR Chest 1 View (05/03/2023 10:05 PM PULPWOOD CUTTER) Anatomical Region Laterality Modality Body, Chest N/A Digital Radiogra phy 05/04/2023 7:57 AM PULPWOOD CUTTER Impressions 05/04/2023 7:57 AM PULPWOOD CUTTER Comparison to 05/03/2023. There is an endotracheal tube with tip approximately 4.1 cm superior to the sommer. ??Gastric tube extends inferior to the [id number] the study, below the GE junction. ??Right [...] Chung Boone M.D. Narrative 05/04/2023 7:57 AM PULP[facility] CUTTER EXAMINATION: 1 view chest radiograph Procedure Note Chung Boone MD - 05/04/2023 EXAMINATION: 1 view chest radiograph IMPRESSION: Comparison to 05/03/2023. There is an endotracheal tube with tip approximately 4.1 cm superior to the sommer. Gastric tube extends inferior to the [id number] the study, below the GE junction. Right [...] IMG XR PROCEDURES Fin al Result * DE INSJ NON-TUNNELED CENTRAL VENOUS CATH AGE 5 YR/> (05/03/2023 9:57 PM PULPWOOD CUTTER) Narrative Carline Jerome MD - 05/03/2023 9:57 PM PULPWOOD CUTTER Thea Rizzo MD ? 05/03/2023 ??9:59 PM Central Line Insertion Date/Time: 05/03/2023 9:57 PM Performed by: Thea Rizzo MD Authorized by: Thea Rizzo MD ?? [place] Protocol: RN Notified of Procedure: yes ?? Informed consent: ??Risks, benefits, alternatives discussed and patient/event representative/guardian agrees and accepts Patient's stated name/ [...] (ABNORMAL) Blood gas, arterial (05/03/2023 8:32 PM PULPWOOD CUTTER) pH, Art 7.37 7.35 - 7.45 [facility] PCO2, Arterial 37 35 - 45 mmHg [facility] PO2, Arterial 126(H) 83 - 108 mmHg [facility] HCO3 Art (Calculated) 22 20 - 30 mmol/L [facility] BE, art -3 mmol/L [facility] Comment: Interpretive Data No Reference Range Established Current Interpretive Data was last revised on 2017 O2 Sat Art (Measured) 99(H) 90 - 95 % [facility] Blood 05/03/2023 8:32 PM PULPWOOD CUTTER 05/03/2023 8:55 PM PULPWOOD CUTTER us Faustino Herrera MD LAB BLOOD ORDERABLES Final Result [facility] [place] [address] * Potassium, whole blood (05/03/2023 5:50 PM PULPWOOD CUTTER) Potassium, bld 3.6 3.3 - 4.9 mmol/L [facility] Blood 05/03/2023 5:50 PM PULPWOOD CUTTER 05/03/2023 5:57 PM PULPWOOD CUTTER Anderson Tolentino Jr., TREE LAB BLOOD ORDERABLE S Final Result Performing Organization Address [facility] Co de Phone Number [facility] [place] [address] * (ABNORMAL) Blood gas, arterial (05/03/2023 5:50 PM PULPWOOD CUTTER) pH, Art 7.38 7.35 - 7.45 [facility] PCO2, Arterial 36 35 - 45 mmHg [facility] PO2, Arterial 125(H) 83 - 108 mmHg [facility] HCO3 Art (Calculated) 22 20 - 30 mmol/L [facility] BE, art -4 mmol/L [facility] Comment: Interpretive Data No Reference Range Established Current Interpretive Data was last revised on 2017 O2 Sat Art (Measured) 99(H) 90 - 95 % [facility] Blood 05/03/2023 5:50 PM PULPWOOD CUTTER 05/03/2023 5:57 PM PULPWOOD CUTTER Faustino Herrera MD LAB BLOOD ORDERABLES Final Result Performing Organization Address [facility] Co de Phone Number [facility] [place] [address] * XR Chest 1 View (05/03/2023 2:54 PM PULPWOOD CUTTER) Anatomical Region Laterality Modality Body, Chest N/A Computed Radiogr aphy 05/03/2023 4:08 PM PULPWOOD CUTTER Impressions 05/03/2023 4:09 PM PULPWOOD CUTTER Comparison is made to chest radiograph 05/02/2023 [...] Aaron Schafer M.D. Narrative 05/03/2023 4:09 PM PULPWOOD CUTTER EXAMINATION: 1 view chest radiograph Procedure Note [...] sult * Critical Care (05/03/2023 2:29 PM PULPWOOD CUTTER) Narrative Carline Jerome MD - 05/03/2023 2:29 PM PULPWOOD CUTTER Carline Jerome MD ? 05/03/2023 ??2:30 PM [...] plan with the ICU team and other medical/applications sales consultant staff, making frequent assessments and [...] and Chemistries, Arterial - (05/03/2023 2:09 PM PULPWOOD CUTTER) pH, Art POC 7.38 7.35 - 7.45 [facility] pCO2, Art POC 35 35 - [address] [facility] pO2, Art POC 59(L) 83 - 108 mmHg [facility] Na, POC 137 135 - 145 mmol/L [facility] K POC 3.4 3.3 - 4.9 mmol/L [facility] Comment: Interpretive Data This method is not able to assess for hemolysis, which may falsely increase potassium concentrations. If further testing is needed to evaluate this result, consider in-laboratory plasma potassium. Current Interpretive Data was last revised on 2022. Cl, POC 113(H) 97 - 110 mmol/L [facility] Ionized Ca, POC 4.32(L) 4.50 - 5.10 mg/dL [facility] Glucose, POC 106 70 - 199 mg/dL [facility] Lactate, POC 0.7 0.7 - 2.2 mmol/L [facility] SO2 (natalia) arterial 92 90 - 95 % [facility] Base excess, POC -3.9 mmol/L [facility] HCO3, Art POC 21 20 - 30 mmol/L [facility] Hct, POC 28.0(L) 41.4 - 51.6 % [facility] O2 Sat, Art POC (Calc) 90 % [facility] Total Hb, POC 9.4(L) 13.8 - 17.2 g/dL [facility] Blood 05/03/2023 2:09 PM PULPWOOD CUTTER 05/03/2023 2:09 PM PULPWOOD CUTTER us Faustino Herrera MD LAB POCT ORDERABLES - ROSIE CE Final Result [facility] Department [place] [address] * Triglycerides (05/03/2023 1:12 PM PULPWOOD CUTTER) Triglycerides See Comment <=149 mg/dL [facility] Comment: Credited; Hemolyzed Specimen Interpretive Data Ages [...] revised on 2018. Blood 05/03/2023 1:12 PM PULPWOOD CUTTER 05/03/2023 1:31 PM PULPWOOD CUTTER us Alonzo Duncan MD LAB BLOOD ORDERABLES Fin al Result [facility] [place] [address] * (ABNORMAL) POC Blood Gas and Chemistries, Arterial - (05/03/2023 11:07 AM PULPWOOD CUTTER) pH, Art POC 7.34(L) 7.35 - 7.45 [facility] pCO2, Art POC 35 35 - 45 mmHg [facility] pO2, Art POC 61(L) 83 - 108 mmHg [facility] Na, POC 137 135 - 145 mmol/L [facility] K POC 3.8 3.3 - 4.9 mmol/L [facility] Comment: Interpretive Data This method is not able to assess for hemolysis, which may falsely increase potassium concentrations. If further testing is needed to evaluate this result, consider in-laboratory plasma potassium. Current Interpretive Data was last revised on 2022. Cl, POC 110 97 - 110 mmol/L [facility] Ionized Ca, POC 4.73 4.50 - 5.10 mg/dL [facility] Glucose, POC 115 70 - 199 mg/dL [facility] Lactate, POC 0.9 0.7 - 2.2 mmol/L [facility] SO2 (natalia) arterial 93 90 - 95 % [facility] Base excess, POC -6.2 mmol/L [facility] HCO3, Art POC 19(L) 20 - 30 mmol/L [facility] Hct, POC 29.0(L) 41.4 - 51.6 % [facility] O2 Sat, Art POC (Calc) 89 % [facility] Total Hb, POC 9.7(L) 13.8 - 17.2 g/dL [facility] Blood 05/03/2023 11:0 7 AM PULPWOOD CUTTER 05/03/2023 11:07 AM PULPWOOD CUTTER us Faustino Herrera MD LAB POCT ORDERABLES - ROSIE CE Final Result [facility] [place] [address] * (ABNORMAL) POC Blood Gas and Chemistries, Arterial - (05/03/2023 3:28 AM PULPWOOD CUTTER) pH, Art POC 7.34(L) 7.35 - 7.45 [facility] pCO2, Art POC 28(L) 35 - 45 mmHg [facility] pO2, Art POC 81(L) 83 - 108 mmHg [facility] Na, POC 135 135 - 145 mmol/L [facility] K POC 4.2 3.3 - 4.9 mmol/L [facility] Comment: Interpretive Data This method is not able to assess for hemolysis, which may falsely increase potassium concentrations. If further testing is needed to evaluate this result, consider in-laboratory plasma potassium. Current Interpretive Data was last revised on 2022. Cl, POC 109 97 - 110 mmol/L [facility] Ionized Ca, POC 5.30(H) 4.50 - 5.10 mg/dL [facility] Glucose, POC 124 70 - 199 mg/dL [facility] Lactate, POC 1.0 0.7 - 2.2 mmol/L [facility] SO2 (natalia) arterial 98(H) 90 - 95 % [facility] Base excess, POC -9.4 mmol/L [facility] HCO3, Art POC 15(L) 20 - 30 mmol/L [facility] Hct, POC 32.0(L) 41.4 - 51.6 % [facility] O2 Sat, Art POC (Calc) 95 % [facility] Total Hb, POC 10.6(L) 13.8 - 17.2 g/dL [facility] Blood 05/03/2023 3:28 AM PULPWOOD CUTTER 05/03/2023 3:28 AM P[facility]WOOD CUTTER Alonzo Duncan MD LAB POCT ORDERABLES - DE VICE Final Result Performing Organization Address [facility]/ZIP Co de Phone Number [facility] Department [place] [employer] [place] [address] * Lactate (05/03/2023 2:08 AM PULPWOOD CUTTER) [facility] Lactate 1.2 0.7 - 2.0 mmol/L [facility] Blood 05/03/2023 2:08 AM PULPWOOD CUTTER 05/03/2023 2:49 AM PUL[facility]WOOD CUTTER Alonzo Duncan MD LAB BLOOD ORDERABLES Fin al Result [facility] [place] [address] * (ABNORMAL) Blood gas, arterial (05/03/2023 2:08 AM PULPWOOD CUTTER) pH, Art 7.34(L) 7.35 - 7.45 [facility] PCO2, Arterial 32(L) 35 - 45 mmHg [facility] PO2, Arterial 120(H) 83 - 108 mmHg [facility] HCO3 Art (Calculated) 18(L) 20 - 30 mmol/L [facility] BE, art -8 mmol/L [facility] Comment: Interpretive Data No Reference Range Established Current Interpretive Data was last revised on 2017 O2 Sat Art (Measured) 99(H) 90 - 95 % [facility] Blood 05/03/2023 2:08 AM PULPWOOD CUTTER 05/03/2023 2:21 AM PUL[facility]WOOD CUTTER Alonzo Duncan MD LAB BLOOD ORDERABLES Fin al Result Performing Organization Address City/[facility]/ZIP Co de Phone Number [facility] [place] [address] * TSH reflex to free T4 (05/03/2023 12:10 AM PULPWOOD CUTTER) TSH 1.52 0.30 - 4.20 mcIUnit/mL [facility] Blood 05/03/2023 12:1 0 AM PULPWOOD CUTTER 05/03/2023 12:27 AM P[facility]WOOD CUTTER Faustino Herrera MD LAB BLOOD ORDERABLES Final Result Performing Organization Address [facility] de Phone Number [facility] [place] [address] * eGFR (05/03/2023 12:10 AM PULPWOOD CUTTER) eGFR 78 >=60 mL/min/1. 73 m2 [facility] Comment: Interpretive Data Reference Interval Normal ?>/= [...] reviewed 2021. Blood 05/03/2023 12:1 0 AM PULPWOOD CUTTER 05/03/2023 12:27 AM PULPWOOD CUTTER us Anderson Tolentino Jr., TREE LAB BLOOD ORDERABLE S Final Result Performing Organization Address [facility] Co de Phone Number [facility] [place] [address] * Fibrinogen (05/03/2023 12:10 AM PULPWOOD CUTTER) [facility] Fibrinogen 274 170 - 400 mg/dL [facility] Blood 05/03/2023 12:1 0 AM PULPWOOD CUTTER 05/03/2023 1:52 AM PULPWOOD CUTTER us Nicole Pearce MD LAB BLOOD ORDERABLES Final Res ult Performing Organization Address [facility] Co de Phone Number [facility] [place] [address] * (ABNORMAL) Blood gas, arterial (05/03/2023 12:10 AM PULPWO[facility] CUTTER) pH, Art 7.35 7.35 - 7.45 [facility] PCO2, Arterial 32(L) 35 - 45 mmHg [facility] PO2, Arterial 110(H) 83 - 108 mmHg [facility] HCO3 Art (Calculated) 18(L) 20 - 30 mmol/L [facility] BE, art -7 mmol/L [facility] Comment: Interpretive Data No Reference Range Established Current Interpretive Data was last revised on 2017 O2 Sat Art (Measured) 98(H) 90 - 95 % [facility] Blood 05/03/2023 12:1 0 AM [facility] C[facility]TER 05/03/2023 12:23 AM [facility] CUTTER us Anderson Tolentino Jr., TREE LAB BLOOD ORDERABLE S Final Result Performing Organization Address City/[facility] [place] [address] * Lactate (05/03/2023 12:10 AM PUL[facility] CUTTER) Lactate 1.0 0.7 - 2.0 mmol/L [facility] Blood 05/03/2023 12:1 0 AM [facility] CUTTER 05/03/2023 12:27 AM [facility] CUTTER Result [facility] Anderson Tolentino Jr., NP LAB BLOOD ORDERABLE S Final Result Performing Organization Address [facility] de Phone Number [facility] [place] [address] * (ABNORMAL) Phosphorus (05/03/2023 12:10 AM PUL[facility] CUTTER) Phosphorus, pl 2.1(L) 2.3 - 4.5 mg/dL [facility] Comment:Hemolyzed; result ma y be falsely elevated Blood 05/03/2023 12:1 0 AM [facility] CUTTER 05/03/2023 12:27 AM [facility] CUTTER us Anderson Tolentino Jr., NP LAB BLOOD ORDERABLE S Final Result Performing Organization Address [facility] Co de Phone Number [facility] [place] [address] * Magnesium (05/03/2023 12:10 AM PUL[facility]OD CUTTER) Magnesium 1.9 1.4 - 2.5 mg/dL [facility] Blood 05/03/2023 12:1 0 AM [facility] CUTTER 05/03/2023 12:27 AM [facility] C[facility]TER Anderson Tolentino Jr., NP LAB BLOOD ORDERABLE S Final Result [facility] [place] [address] * (ABNORMAL) Basic metabolic panel (05/03/2023 12:10 AM PULPWOOD CUTTER) Pathologist [facility] Sodium 134(L) 135 - 145 mmol/L [facility] Potassium, pl See Comment 3.3 - 4.9 mmol/L [facility] Comment:Credited; Hemolyzed Specimen Chloride 106 97 - 110 mmol/L [facility] CO2 18(L) 22 - 32 mmol/L [facility] Anion gap 10 2 - 15 mmol/L [facility] BUN 16 6 - 25 mg/dL [facility] Creatinine 1.27 0.80 - 1.30 mg/dL [facility] Glucose 118 70 - 199 mg/dL [facility] [...] 2022. Calcium 7.7(L) 8.5 - 10.3 mg/dL [facility] Blood 05/03/2023 12:1 0 AM [facility] CUTTER 05/03/2023 12:27 AM P[facility] CUTTER us Anderson Tolentino Jr., TREE LAB BLOOD ORDERABLE S Final Result [facility] [place] [address] * (ABNORMAL) CBC without differential (05/03/2023 12:10 AM PULPWOOD CUTTER) WBC 14.6(H) 3.8 - 9.9 K/cumm [facility] Hgb 10.7(L) 13.0 - 17.5 g/dL [facility] Comment: Interpretive Data A reference range for this assay has not been established for patients with an unknown legal sex. Please refer to the laboratory test catalog for established sex-specific reference intervals. Current interpretive data was last revised on 2023. Hct 29.7(L) 38.9 - 50.3 % [facility] Comment: Interpretive Data A reference range for this assay has not been established for patients with an unknown legal sex. Please refer to the laboratory test catalog for established sex-specific reference intervals. Current interpretive data was last revised on 2023. Plt 121(L) 150 - 400 K/cumm [facility] MPV 10.6 9.1 - 12.3 fL [facility] RBC 3.38(L) 4.30 - 5.80 M/cumm [facility] Comment: Interpretive Data A reference range for this assay has not been established for patients with an unknown legal sex. Please refer to the laboratory test catalog for established sex-specific reference intervals. Current interpretive data was last revised on 2023. MCV 87.9 81.3 - 96.4 fL [facility] MCH 31.7 27.1 - 33.3 pg [facility] MCHC 36.0(H) 32.3 - 35.7 g/dL [facility] RDW CV 12.4 11.1 - 14.9 % [facility] RDW SD 39.9 35.7 - 48.1 fL [facility] NRBC abs 0.00 0.00 - 0.01 K/cumm [facility] Blood 05/03/2023 12:1 0 AM [facility] CUTTER 05/03/2023 12:28 AM P[facility] CUTTER us Anderson Tolentino Jr., NP LAB BLOOD ORDERABLE S Final Result [facility] [place] [address] * (ABNORMAL) POC Blood Gas and Chemistries, Arterial - (05/02/2023 11:16 PM PULPWOOD CUTTER) Pathologist [facility] pH, Art POC 7.34(L) 7.35 - 7.45 [facility] pCO2, Art POC 32(L) 35 - [address] [facility] pO2, Art POC 70(L) 83 - [address] [facility] Na, POC 135 135 - 145 mmol/L [facility] K POC 4.1 3.3 - 4.9 mmol/L [facility] Comment: Interpretive Data This method is not able to assess for hemolysis, which may falsely increase potassium concentrations. If further testing is needed to evaluate this result, consider in-laboratory plasma potassium. Current Interpretive Data was last revised on 2022. Cl, POC 110 97 - 110 mmol/L [facility] Ionized Ca, POC 4.68 4.50 - 5.10 mg/dL [facility] Glucose, POC 117 70 - 199 mg/dL [facility] Lactate, POC 0.9 0.7 - 2.2 mmol/L [facility] SO2 (natalia) arterial 96(H) 90 - 95 % [facility] Base excess, POC -7.6 mmol/L [facility] HCO3, Art POC 17(L) 20 - 30 mmol/L C[facility]ER [facility] Hct, POC 31.0(L) 41.4 - 51.6 % [facility]ER [facility] O2 Sat, Art POC (Calc) 93 % [facility] Total Hb, POC 10.4(L) 13.8 - 17.2 g/dL [facility] Blood 05/02/2023 11:1 6 PM [facility] C[facility]TER 05/02/2023 11:16 PM [facility] C[facility]TER us Alonzo Duncan MD LAB POCT ORDERABLES - DE VICE Final Result [facility] [place] [address] * XR Chest 1 View (05/02/2023 10:54 PM PULPWOOD CUTTER) Anatomical Region Laterality Modality Body, Chest N/A Computed Radiogr aphy 05/03/2023 9:04 AM [facility] C[facility]TER Impressions 05/03/2023 3:17 PM [facility] C[facility]TER The current study is compared with the [...] Roldan Harrison M.D. Narrative 05/03/2023 3:17 PM [facility] C[facility]TER EXAMINATION: 1 view chest radiograph Procedure Note [...] Deandre Christy, M.D. us Anderson Tolentino Jr., HEARING HEALTH TECHNICIAN IMG XR PROCEDURES F inal Result * (ABNORMAL) POC Blood Gas and Chemistries, Arterial - (05/02/2023 10:13 PM PUL[facility] CUTTER) pH, Art POC 7.29(L) 7.35 - 7.45 [facility] pCO2, Art POC 35 35 - 45 mmHg [facility] pO2, Art POC 68(L) 83 - 108 mmHg [facility] Na, POC 136 135 - 145 mmol/L [facility] K POC 3.9 3.3 - 4.9 mmol/L [facility] Comment: Interpretive Data This method is not able to assess for hemolysis, which may falsely increase potassium concentrations. If further testing is needed to evaluate this result, consider in-laboratory plasma potassium. Current Interpretive Data was last revised on 2022. Cl, POC 111(H) 97 - 110 mmol/L [facility] Ionized Ca, POC 4.56 4.50 - 5.10 mg/dL [facility] Glucose, POC 105 70 - 199 mg/dL [facility] Lactate, POC 1.1 0.7 - 2.2 mmol/L [facility] SO2 (natalia) arterial 95 90 - 95 % [facility] Base excess, POC -9.0 mmol/L [facility] HCO3, Art POC 17(L) 20 - 30 mmol/L [facility] Hct, POC 29.0(L) 41.4 - 51.6 % [facility] O2 Sat, Art POC (Calc) 91 % [facility] Total Hb, POC 9.8(L) 13.8 - 17.2 g/dL [facility] Blood 05/02/2023 10:1 3 PM [facility] C[facility]TER 05/02/2023 10:13 PM [facility] C[facility]TER us Alonzo Duncan MD LAB POCT ORDERABLES - DE VICE Final Result [facility] [place] [address] * eGFR (05/02/2023 9:55 PM PULPWOOD CUTTER) eGFR 72 >=60 mL/min/1. [address] [facility] Comment: Interpretive Data Reference Interval Normal [...] last reviewed 2021. Blood 05/02/2023 9:55 PM P[facility]OD CUTTER 05/02/2023 10:39 PM PULP[facility]OD CUTTER us Anderson Tolentino Jr., TREE LAB BLOOD ORDERABLE S Final Result [facility] Department [place] [address] * Calcium, ionized (05/02/2023 9:55 PM PULPWOOD CUTTER) Calcium, Ionized 4.61 4.50 - 5.10 mg/dL [facility] Blood 05/02/2023 9:55 PM PUL[facility]WOOD CUTTER 05/02/2023 10:17 PM [facility] C[facility]TER Anderson Tolentino Jr., HEARING HEALTH TECHNICIAN LAB BLOOD ORDERABLE S Final Result Performing Organization Address City/[facility]/ZIP Co de Phone Number [facility] One [facility] [place] [address] * Magnesium (05/02/2023 9:55 PM PULPWOOD CUTTER) Pathologist [facility] Magnesium 1.8 1.4 - 2.5 mg/dL [facility] Blood 05/02/2023 9:55 PM PUL[facility]WOOD CUTTER 05/02/2023 10:17 PM [facility] CUTTER Anderson Tolentino Jr., HEARING HEALTH TECHNICIAN LAB BLOOD ORDERABLE S Final Result Performing Organization Address [facility] de Phone Number [facility] [place] [place] [address] * (ABNORMAL) Basic metabolic panel (05/02/2023 9:55 PM PULPWOOD CUTTER) [facility] Sodium 136 135 - 145 mmol/L [facility] Potassium, pl 4.5 3.3 - 4.9 mmol/L [facility] Comment:Hemolyzed; Potassium value may be falsely elevated by as much as 0.6-1.0 mmol/L. Suggest redraw and reanalysis. Chloride 107 97 - 110 mmol/L [facility] CO2 20(L) 22 - 32 mmol/L [facility] Anion gap 9 2 - 15 mmol/L [facility] BUN 15 6 - 25 mg/dL [facility] Creatinine 1.36(H) 0.80 - 1.30 mg/dL [facility] Glucose 105 70 - 199 mg/dL [facility] [...] 2022. Calcium 7.6(L) 8.5 - 10.3 mg/dL [facility] Blood 05/02/2023 9:55 PM P[facility]WOOD CUTTER 05/02/2023 10:17 PM [facility] CUTTER Anderson Tolentino Jr., TREE LAB BLOOD ORDERABLE S Final Result Performing Organization Address [facility]/ZIP Co de Phone Number [facility] [place] [address] * Phosphorus (05/02/2023 9:55 PM PUL[facility]WOOD CUTTER) Phosphorus, pl 3.5 2.3 - 4.5 mg/dL [facility] Blood 05/02/2023 9:55 PM PUL[facility] CUTTER 05/02/2023 10:17 PM P[facility] CUTTER Anderson Tolentino Jr., RTEE LAB BLOOD ORDERABLE S Final Result Performing Organization Address [facility] de Phone Number [facility] Department [place] [address] * (ABNORMAL) CBC without differential (05/02/2023 9:33 PM PULPWOOD CUTTER) Pathologist [facility] WBC 12.4(H) 3.8 - 9.9 K/cumm [facility] Hgb 9.9(L) 13.0 - 17.5 g/dL [facility] Comment: Interpretive Data A reference range for this assay has not been established for patients with an unknown legal sex. Please refer to the laboratory test catalog for established sex-specific reference intervals. Current interpretive data was last revised on 2023. Hct 28.8(L) 38.9 - 50.3 % [facility] Comment: Interpretive Data A reference range for this assay has not been established for patients with an unknown legal sex. Please refer to the laboratory test catalog for established sex-specific reference intervals. Current interpretive data was last revised on 2023. Plt 105(L) 150 - 400 K/cumm [facility] MPV 10.1 9.1 - 12.3 fL [facility] RBC 3.18(L) 4.30 - 5.80 M/cumm [facility] Comment: Interpretive Data A reference range for this assay has not been established for patients with an unknown legal sex. Please refer to the laboratory test catalog for established sex-specific reference intervals. Current interpretive data was last revised on 2023. MCV 90.6 81.3 - 96.4 fL [facility] MCH 31.1 27.1 - 33.3 pg [facility] MCHC 34.4 32.3 - 35.7 g/dL [facility] RDW CV 12.4 11.1 - 14.9 % [facility] RDW SD 40.8 35.7 - 48.1 fL [facility] NRBC abs 0.03(H) 0.00 - 0.01 K/cumm [facility] Blood 05/02/2023 9:33 PM P[facility] CUTTER 05/02/2023 10:23 PM [facility] C[facility]TER Anderson Tolentino Jr., TREE LAB BLOOD ORDERABLE S Final Result [facility] [place] [address] * (ABNORMAL) POC Blood Gas and Chemistries, Arterial - (05/02/2023 9:29 PM PULPWO[facility] CUTTER) pH, Art POC 7.27(L) 7.35 - 7.45 [facility] pCO2, Art POC 41 35 - 45 mmHg [facility] pO2, Art POC 56(L) 83 - 108 mmHg [facility] Na, POC 137 135 - 145 mmol/L [facility] K POC 4.0 3.3 - 4.9 mmol/L [facility] Comment: Interpretive Data This method is not able to assess for hemolysis, which may falsely increase potassium concentrations. If further testing is needed to evaluate this result, consider in-laboratory plasma potassium. Current Interpretive Data was last revised on 2022. Cl, POC 111(H) 97 - 110 mmol/L [facility] Ionized Ca, POC 4.67 4.50 - 5.10 mg/dL [facility] Glucose, POC 101 70 - 199 mg/dL [facility] Lactate, POC 1.0 0.7 - 2.2 mmol/L [facility] SO2 (natalia) arterial 89(L) 90 - 95 % [facility] Base excess, POC -7.6 mmol/L [facility] HCO3, Art POC 19(L) 20 - 30 mmol/L [facility] Hct, POC 30.0(L) 41.4 - 51.6 % [facility] O2 Sat, Art POC (Calc) 84 % [facility] Total Hb, POC 9.9(L) 13.8 - 17.2 g/dL [facility] Blood 05/02/2023 9:29 PM [facility] CUTTER 05/02/2023 9:29 PM [facility] C[facility]TER Alonzo Duncan MD LAB POCT ORDERABLES - DE VICE Final Result [facility] [place] [address] * THORACIC ENDOVASCULAR REPAIR - AORTIC (05/02/2023 9:20 PM PUL[facility]WOOD CUTTER) Anatomical Region Laterality Modality X-Ray Angiograph y Narrative 05/03/2023 5:06 AM [facility] C[facility]TER Please see OpNote for result. us Faustino Herrera MD SURGICAL CASE ORDERS Final Result * POCT Activated clotting time, low range (05/02/2023 7:26 PM PULPWOOD CUTTER) ACT 149 123 - 168 sec [facility] POC Performer [id number] [facility] POC Device Number [id number] [facility] Blood 05/02/2023 7:26 PM [facility] CUTTER 05/02/2023 7:26 PM [facility] C[facility]TER us Alonzo Duncan MD LAB POCT ORDERABLES - DE VICE Final Result Performing Organization Address [facility] [place] [address] * (ABNORMAL) POCT Activated clotting time, low range (05/02/2023 7:01 PM PULPWOOD CUTTER) ACT 327(H) 123 - 168 sec [facility] POC Performer 7239 [facility] POC Device Number [id number] [facility] Blood 05/02/2023 7:01 PM [facility] CUTTER 05/02/2023 7:01 PM P[facility] CUTTER us Alonzo Duncan MD LAB POCT ORDERABLES - DE VICE Final Result Performing Organization Address [facility] [place] [address] * (ABNORMAL) POCT Activated clotting time, low range (05/02/2023 6:27 PM PULPWO[facility] CUTTER) ACT 322(H) 123 - 168 sec [facility] POC Performer 7239 [facility] POC Device Number [id number] [facility] Blood 05/02/2023 6:27 PM PUL[facility]WOOD CUTTER 05/02/2023 6:27 PM PULP[facility] CUTTER us Alonzo Duncan MD LAB POCT ORDERABLES - DE VICE Final Result Performing Organization Address [facility] Co de Phone Number [facility] [place] [place] [address] * (ABNORMAL) POCT Activated clotting time, low range (05/02/2023 6:02 PM PULPWOOD CUTTER) ACT 331(H) 123 - 168 sec [facility] POC Performer [id number] [facility] POC Device Number [id number] [facility] Blood 05/02/2023 6:02 PM [facility] CUTTER 05/02/2023 6:02 PM P[facility] CUTTER us Alonzo Duncan MD LAB POCT ORDERABLES - DE VICE Final Result [facility] [place] [address] * Critical Care (05/02/2023 5:26 PM PUL[facility] CUTTER) Narrative Carline Jerome MD - 05/02/2023 5:26 PM [facility] C[facility]TER Carline Jerome MD ? 05/02/2023 ??5:29 PM [...] plan with the ICU team and other medical/applications sales consultant staff, making frequent assessments and [...] Final Result * eGFR (05/02/2023 4:00 PM PULPWOOD CUTTER) eGFR 84 >=60 mL/min/1. [address] [facility] Comment: Interpretive Data Reference Interval Normal [...] last reviewed 2021. Blood 05/02/2023 4:00 PM P[facility]OD CUTTER 05/02/2023 4:29 PM P[facility] CUTTER us Alonzo Duncan MD LAB BLOOD ORDERABLES Fin al Result [facility] [place] [address] * (ABNORMAL) Comprehensive metabolic panel (05/02/2023 4:00 PM PUL[facility]WO[facility] CUTTER) Sodium 134(L) 135 - 145 mmol/L [facility] Potassium, pl See Comment 3.3 - 4.9 mmol/L [facility] Comment:Credited; Hemolyzed Specimen Chloride 103 97 - 110 mmol/L [facility] CO2 16(L) 22 - 32 mmol/L [facility] Anion gap 15 2 - 15 mmol/L [facility] BUN 15 6 - 25 mg/dL [facility] Creatinine 1.19 0.80 - 1.30 mg/dL [facility] Glucose 102 70 - 199 mg/dL [facility] [...] 2022. Calcium 8.3(L) 8.5 - 10.3 mg/dL [facility] Bilirubin, total 0.5 0.1 - 1.2 mg/dL [facility] Protein, pl 6.5 6.5 - 8.5 g/dL [facility] Albumin 3.5 3.5 - 5.0 g/dL [facility] Alk phos 59 40 - 130 Units/L [facility] Comment:Hemolyzed; result ma y be falsely decreased ALT See Comment 7 - 55 Units/L [facility] Comment:Credited; Hemolyzed Specimen AST See Comment 10 - 50 Units/L [facility] Comment:Credited; Hemolyzed Specimen Blood 05/02/2023 4:00 PM [facility] CUTTER 05/02/2023 4:29 PM [facility] C[facility]TER Alonzo Duncan MD LAB BLOOD ORDERABLES Fin al Result [facility] Department [place] [address] * Lactate (05/02/2023 4:00 PM PULPWOOD CUTTER) Pathologist [facility] Lactate 0.9 0.7 - 2.0 mmol/L [facility] Blood 05/02/2023 4:00 PM [facility]OD CUTTER 05/02/2023 4:29 PM [facility] C[facility]TER Faustino Elias MD LAB BLOOD ORDERABLES Final Result Performing Organization Address [facility] Co de Phone Number [facility] Department [place] [address] * (ABNORMAL) CBC without differential (05/02/2023 4:00 PM PULPWOOD CUTTER) [facility] WBC 15.0(H) 3.8 - 9.9 K/cumm [facility] Hgb 10.9(L) 13.0 - 17.5 g/dL [facility] Comment: Interpretive Data A reference range for this assay has not been established for patients with an unknown legal sex. Please refer to the laboratory test catalog for established sex-specific reference intervals. Current interpretive data was last revised on 2023. Hct 30.9(L) 38.9 - 50.3 % [facility] Comment: Interpretive Data A reference range for this assay has not been established for patients with an unknown legal sex. Please refer to the laboratory test catalog for established sex-specific reference intervals. Current interpretive data was last revised on 2023. Plt 119(L) 150 - 400 K/cumm [facility] MPV 10.7 9.1 - 12.3 fL [facility] RBC 3.49(L) 4.30 - 5.80 M/cumm [facility] Comment: Interpretive Data A reference range for this assay has not been established for patients with an unknown legal sex. Please refer to the laboratory test catalog for established sex-specific reference intervals. Current interpretive data was last revised on 2023. MCV 88.5 81.3 - 96.4 fL [facility] MCH 31.2 27.1 - 33.3 pg [facility] MCHC 35.3 32.3 - 35.7 g/dL [facility] RDW CV 12.3 11.1 - 14.9 % [facility] RDW SD 39.9 35.7 - 48.1 fL [facility] NRBC abs 0.00 0.00 - 0.01 K/cumm [facility] Blood 05/02/2023 4:00 PM P[facility]WOOD CUTTER 05/02/2023 4:29 PM P[facility]WO[facility] CUTTER Faustino Elias MD LAB BLOOD ORDERABLES Final Result [facility] [place] [address] * TRANSTHORACIC ECHO (TTE) COMPLETE W DOPPLER/CF W CONTRAST (05/02/2023 12:40 PM PULPWOOD CUTTER) LV EF 41 % CARDIOREPORT Anatomical Region Laterality Modality Ultrasound 05/02/2023 11:3 0 AM P[facility]WOOD CUTTER Narrative 05/02/2023 12:56 PM [facility]OD CUTTER Patient name: Eriberto Chau Date of test: 05/02/2023 Type of test: TTE w/Doppler Hospital #: 0 Date of : 1990 (M) Cylinder Press Feeder: Real Rosales RDCS Referring Physician: GLADYS GALLAGHER MD Contrast Agent: 1.1 ml Optison Administered, (1.9 ml wasted). Contrast Administered by: ICU Nurse Supervised/Interpreted by: Roldan Salcido MD Diagnosis: Location: [facility] Reason for test: chest pain MV Structure: [...] 2=Hypo 3=Akinetic 4=Dyskin./Aneurysm 0=Not visualized) Parasternal Long [place]:MAS=2 BAS=2 MIL=2 GARO=2 Parasternal Short [place]:MAS=2 MIS=2 KY=2 MIL=2 MAL=2 MA=2 Apical 4 Chambers:=2 MIS=2 BIS=2 BAL=2 MAL=2 AL=2 AC=2 Apical 2 Chambers:AI=2 KY=2 BI=2 BA=2 MA=2 AA=2 AC=2 LV Global [...] MD By signing this report, the attending paint prepper certifies that he or she has personally supervised and interpreted the echocardiogram and has reviewed and or edited and agrees with the written comments contained within the report. Procedure Note Roldan Salcido MD - 05/02/2023 Patient name: Eriberto Chau Date of test: 05/02/2023 Type of test: TTE w/Doppler Hospital #: 0 Date of : 1990 (M) Cylinder Press Feeder: Real Rosales [facility] Referring Physician: GLADYS GALLAGHER MD Contrast Agent: 1.1 ml Optison Administered, (1.9 ml wasted). Contrast Administered by: ICU Nurse Supervised/Interpreted by: Roldan Salcido MD Diagnosis: Location: [facility] Reason for test: chest pain MV Structure: [...] 2=Hypo 3=Akinetic 4=Dyskin./Aneurysm 0=Not visualized) Parasternal Long [place]:MAS=2 BAS=2 MIL=2 GARO=2 Parasternal Short [place]:MAS=2 MIS=2 [place]=2 MIL=2 MAL=2 MA=2 Apical 4 Chambers:=2 MIS=2 BIS=2 BAL=2 MAL=2 AL=2 AC=2 Apical 2 Chambers:AI=2 KY=2 BI=2 BA=2 MA=2 AA=2 AC=2 LV Global [...] MD By signing this report, the attending paint prepper certifies that he or she has personally supervised and interpreted the echocardiogram and has reviewed and or edited and agrees with the written comments contained within the report. us Gladys Gallagher NP CV ECHO PROCEDURES Final Result * Prepare platelets: 4 Units (05/02/2023 10:34 AM PULPWOOD CUTTER) Product code [id number] Unit Number [id number] [facility] Product Blood Type APOS [facility] Dispense Status PRESUMED TRANSFUSED [facility] Blood (Blood, Venous) 05/02/2023 10:34 AM PULPWOOD CUTTER 05/02/2023 10:34 AM PULPWOOD CUTTER Narrative [facility] - 05/06/2023 4:02 PM PULPWOOD CUTTER Specify Procedure:->Surgery Are special requirements needed? (all products are leukoreduced)->No Date required:-[id number] PLT # of Units:-4-Units Reasons:-Hold for procedure (specify procedure)} us Alonzo Duncan MD BLOOD BANK PRODUCT ORDER CAROLINE Final Result [facility]IR[facility] [place] [address] * Prepare RBC: 4 Units (05/02/2023 10:33 AM PULPWOOD CUTTER) Product code [id number] [facility] Unit Number [id number] 8-P [facility] Product Blood Type APOS [facility] Dispense Status RETURNED [facility] Product code [id number] [facility] Unit Number [id number] 3-R [facility] Product Blood Type APOS [facility] Dispense Status RETURNED [facility] Product code [id number] JAIRON ERWIN Unit Number [id number] 1-S JAIRON ERWIN Product Blood Type APOS JAIRON ERWIN Dispense Status RETURNED JAIRON ERWIN Product code [id number] Unit Number [id number] 4-P JAIRON COLON Product Blood Type APOS JA[facility]ON COLON Dispense Status RETURNED JAIRON COLON Blood 05/02/2023 10:3 3 AM PULPWOOD CUTTER 05/02/2023 10:34 AM PULPWOOD CUTTER Narrative JAIRON COLON - 05/03/2023 6:13 AM PULPWOOD CUTTER Are special requirements needed? (All products are leukoreduced and CMV- safe)- >No Date required:-[id number] LRRBC # of [id number] Reasons:-Intra-op transfusion} us Alonzo Duncan MD BLOOD BANK PRODUCT ORDER CAROLINE Final Result [facility] [place] [address] * eGFR (05/02/2023 10:12 AM PULPWOOD CUTTER) eGFR 84 >=60 mL/min/1. 73 m2 JAIRON [...] reviewed 2021. Blood 05/02/2023 10:1 2 AM PULPWOOD CUTTER 05/02/2023 10:22 AM PULPWOOD CUTTER us Alonzo Duncan MD LAB BLOOD ORDERABLES Fin al Result [facility] [place] [address] * (ABNORMAL) Comprehensive metabolic panel (05/02/2023 10:12 AM PULPWOOD CUTTER) Sodium 134(L) 135 - 145 mmol/L [facility] Potassium, pl See Comment 3.3 - 4.9 mmol/L [facility] Comment:Credited; Hemolyzed Specimen Chloride 104 97 - 110 mmol/L [facility] CO2 21(L) 22 - 32 mmol/L [facility] Anion gap 9 2 - 15 mmol/L [facility] BUN 18 6 - 25 mg/dL [facility] Creatinine 1.19 0.80 - 1.30 mg/dL [facility] Glucose 104 70 - 199 mg/dL [facility] [...] 2022. Calcium 7.9(L) 8.5 - 10.3 mg/dL [facility] Bilirubin, total 0.4 0.1 - 1.2 mg/dL [facility] Protein, pl 5.9(L) 6.5 - 8.5 g/dL [facility] Albumin 3.3(L) 3.5 - 5.0 g/dL [facility] Alk phos 63 40 - 130 Units/L [facility] Comment:Hemolyzed; result ma y be falsely decreased ALT See Comment 7 - 55 Units/L [facility] Comment:Credited, hemolyzed specimen. AST See Comment 10 - 50 Units/L [facility] Comment:Credited, hemolyzed specimen. Blood 05/02/2023 10:1 2 AM PULPWOOD CUTTER 05/02/2023 10:22 AM PULPWOOD CUTTER Alonzo Duncan MD LAB BLOOD ORDERABLES Fin al Result Performing Organization Address [facility] Co de Phone Number [facility] Department [place] [address] * Lactate (05/02/2023 10:12 AM PULPWOOD CUTTER) Pathologist [facility] Lactate 0.9 0.7 - 2.0 mmol/L [facility] Blood 05/02/2023 10:1 2 AM PULPWOOD CUTTER 05/02/2023 10:22 AM PULPWOOD CUTTER Faustino Elias MD LAB BLOOD ORDERABLES Final Result Performing Organization Address [facility] de Phone Number [facility] Department [place] [address] * (ABNORMAL) CBC without differential (05/02/2023 10:12 AM PULPWOOD CUTTER) WBC 14.9(H) 3.8 - 9.9 K/cumm [facility] Hgb 10.9(L) 13.0 - 17.5 g/dL [facility] Comment: Interpretive Data A reference range for this assay has not been established for patients with an unknown legal sex. Please refer to the laboratory test catalog for established sex-specific reference intervals. Current interpretive data was last revised on 2023. Hct 31.0(L) 38.9 - 50.3 % [facility] Comment: Interpretive Data A reference range for this assay has not been established for patients with an unknown legal sex. Please refer to the laboratory test catalog for established sex-specific reference intervals. Current interpretive data was last revised on 2023. Plt 108(L) 150 - 400 K/cumm [facility] MPV 10.2 9.1 - 12.3 fL [facility] RBC 3.47(L) 4.30 - 5.80 M/cumm [facility] Comment: Interpretive Data A reference range for this assay has not been established for patients with an unknown legal sex. Please refer to the laboratory test catalog for established sex-specific reference intervals. Current interpretive data was last revised on 2023. MCV 89.3 81.3 - 96.4 fL [facility] MCH 31.4 27.1 - 33.3 pg [facility] MCHC 35.2 32.3 - 35.7 g/dL [facility] RDW CV 12.6 11.1 - 14.9 % [facility] RDW SD 41.1 35.7 - 48.1 fL [facility] NRBC abs 0.02(H) 0.00 - 0.01 K/cumm [facility] Blood 05/02/2023 10:1 2 AM PULPWOOD CUTTER 05/02/2023 10:23 AM PULPWOOD CUTTER Faustino Elias MD LAB BLOOD ORDERABLES Final Result [facility] [place] [address] * CTA Chest Abdominal Aorta and Bilateral Iliofemoral (05/02/2023 9:47 AM PULPWOOD CUTTER) Anatomical Region Laterality Modality Body N/A Computed Tomogra phy 05/02/2023 10:3 4 AM PULPWOOD CUTTER Impressions 05/02/2023 2:28 PM PULPWOOD CUTTER 1. ??Interval retrograde propagation of a type [...] Timmy Castillo M.D. Narrative 05/02/2023 2:28 PM PULPWOOD CUTTER EXAMINATION: ??CT ANGIOGRAPHY OF CHEST, ABDOMEN, PELVIS, [...] Result * POCT glucose (05/02/2023 4:16 AM PULPWOOD CUTTER) Glucose, POC 117 70 - 199 mg/dL [facility] Blood 05/02/2023 4:16 AM PULPWOOD CUTTER 05/02/2023 4:16 AM PULPWOOD CUTTER Alonzo Duncan MD LAB POCT ORDERABLES - DE VICE Final Result [facility] [place] [address] * eGFR (05/02/2023 4:10 AM PULPWOOD CUTTER) eGFR 83 >=60 mL/min/1. 73 m2 [facility] Comment: Interpretive Data Reference Interval Normal ?>/= [...] last reviewed 2021. Blood 05/02/2023 4:10 AM PULPWOOD CUTTER 05/02/2023 4:31 AM PULPWOOD CUTTER us Alonzo Duncan MD LAB BLOOD ORDERABLES Fin al Result [facility] [place] [address] * (ABNORMAL) Comprehensive metabolic panel (05/02/2023 4:10 AM PULPWOOD CUTTER) Sodium 138 135 - 145 mmol/L [facility] Potassium, pl See Comment 3.3 - 4.9 mmol/L [facility] Comment:Credited; Hemolyzed Specimen Chloride 107 97 - 110 mmol/L [facility] CO2 23 22 - 32 mmol/L [facility] Anion gap 8 2 - 15 mmol/L [facility] BUN 20 6 - 25 mg/dL [facility] Creatinine 1.21 0.80 - 1.30 mg/dL [facility] Glucose 122 70 - 199 mg/dL [facility] [...] 2022. Calcium 7.8(L) 8.5 - 10.3 mg/dL [facility] Bilirubin, total 0.4 0.1 - 1.2 mg/dL [facility] Protein, pl 6.2(L) 6.5 - 8.5 g/dL [facility] Albumin 3.5 3.5 - 5.0 g/dL [facility] Alk phos 65 40 - 130 Units/L [facility] Comment:Hemolyzed; result ma y be falsely decreased ALT See Comment 7 - 55 Units/L [facility] Comment:Credited, hemolyzed specimen. AST See Comment 10 - 50 Units/L [facility] Comment:Credited, hemolyzed specimen. Blood 05/02/2023 4:10 AM PULPWOOD CUTTER 05/02/2023 4:31 AM PULPWOOD CUTTER Alonzo Duncan MD LAB BLOOD ORDERABLES Fin al Result Performing Organization Address [facility] Co de Phone Number [facility] [place] [address] * Lactate (05/02/2023 4:10 AM PULPWOOD CUTTER) Lactate 0.9 0.7 - 2.0 mmol/L [facility] Blood 05/02/2023 4:10 AM PULPWOOD CUTTER 05/02/2023 4:36 AM PULPWOOD CUTTER Faustino Elias MD LAB BLOOD ORDERABLES Final Result Performing Organization Address [facility] de Phone Number [facility] [place] [place] [address] * (ABNORMAL) CBC without differential (05/02/2023 4:10 AM PULPWOOD CUTTER) Pathologist [facility] WBC 16.1(H) 3.8 - 9.9 K/cumm [facility] Hgb 11.1(L) 13.0 - 17.5 g/dL [facility] Comment: Interpretive Data A reference range for this assay has not been established for patients with an unknown legal sex. Please refer to the laboratory test catalog for established sex-specific reference intervals. Current interpretive data was last revised on 2023. Hct 32.6(L) 38.9 - 50.3 % [facility] Comment: Interpretive Data A reference range for this assay has not been established for patients with an unknown legal sex. Please refer to the laboratory test catalog for established sex-specific reference intervals. Current interpretive data was last revised on 2023. Plt 108(L) 150 - 400 K/cumm [facility] MPV 9.4 9.1 - 12.3 fL [facility] RBC 3.58(L) 4.30 - 5.80 M/cumm [facility] Comment: Interpretive Data A reference range for this assay has not been established for patients with an unknown legal sex. Please refer to the laboratory test catalog for established sex-specific reference intervals. Current interpretive data was last revised on 2023. MCV 91.1 81.3 - 96.4 fL [facility] MCH 31.0 27.1 - 33.3 pg [facility] MCHC 34.0 32.3 - 35.7 g/dL [facility] RDW CV 12.5 11.1 - 14.9 % [facility] RDW SD 41.5 35.7 - 48.1 fL [facility] NRBC abs 0.00 0.00 - 0.01 K/cumm [facility] Blood 05/02/2023 4:10 AM PULPWOOD CUTTER 05/02/2023 4:36 AM PULPWOOD CUTTER us Faustino Elias MD LAB BLOOD ORDERABLES Final Result Performing Organization Address [facility] de Phone Number [facility] [place] [address] * (ABNORMAL) Protime-INR (05/02/2023 4:10 AM PULPWOOD CUTTER) PT 14.9(H) 10.3 - 13.7 sec [facility] INR 1.31(H) 0.90 - 1.20 [facility] Comment: Interpretive data Oral anticoagulant therapeutic ranges: Venous thromboembolism prophylaxis or treatment: 2.0-3.0 CARDIOLOGY Standard range: 2.0-3.0 High-intensity range: 2.5-3.5 Refer to indication-specific guidelines for appropriate target ranges for prosthetic heart valve replacement. Current interpretive data was last revised on 2019. Blood 05/02/2023 4:10 AM PULPWOOD CUTTER 05/02/2023 4:36 AM PULPWOOD CUTTER us Marvin Granadso MD LAB BLOOD ORDERABLES Final Re sult Performing Organization Address [facility] Co de Phone Number [facility] [place] [address] * (ABNORMAL) Calcium, ionized (05/02/2023 4:10 AM PULPWOOD CUTTER) Calcium, Ionized 4.45(L) 4.50 - 5.10 mg/dL [facility] Blood 05/02/2023 4:10 AM PULPWOOD CUTTER 05/02/2023 4:31 AM PULPWOOD CUTTER us Marvin Granados MD LAB BLOOD ORDERABLES Final Re sult [facility] [place] [address] * eGFR (05/01/2023 11:52 PM PULPWOOD CUTTER) eGFR 79 >=60 mL/min/1. 73 m2 [facility] Comment: Interpretive Data Reference Interval Normal ?>/= [...] reviewed 2021. Blood 05/01/2023 11:5 2 PM PULPWOOD CUTTER 05/02/2023 12:04 AM PULPWOOD CUTTER us Alonzo Duncan MD LAB BLOOD ORDERABLES Fin al Result [facility] [place] [address] * (ABNORMAL) Comprehensive metabolic panel (05/01/2023 11:52 PM PULPWOOD CUTTER) Sodium 139 135 - 145 mmol/L [facility] Potassium, pl 4.0 3.3 - 4.9 mmol/L [facility] Chloride 108 97 - 110 mmol/L [facility] CO2 24 22 - 32 mmol/L [facility] Anion gap 7 2 - 15 mmol/L [facility] BUN 22 6 - 25 mg/dL [facility] Creatinine 1.25 0.80 - 1.30 mg/dL [facility] Glucose 108 70 - 199 mg/dL [facility] [...] 2022. Calcium 7.7(L) 8.5 - 10.3 mg/dL [facility] Bilirubin, total 0.4 0.1 - 1.2 mg/dL [facility] Protein, pl 5.8(L) 6.5 - 8.5 g/dL [facility] Albumin 3.7 3.5 - 5.0 g/dL [facility] Alk phos 69 40 - 130 Units/L [facility] ALT 18 7 - 55 Units/L [facility] AST 21 10 - 50 Units/L [facility] Blood 05/01/2023 11:5 2 PM PULPWOOD CUTTER 05/02/2023 12:04 AM PULPWOOD CUTTER Alonzo Duncan MD LAB BLOOD ORDERABLES Fin al Result Performing Organization Address [place]/[facility] Co de Phone Number [facility] [place] [address] * Lactate (05/01/2023 11:52 PM PULPWOOD CUTTER) Pathologist [facility] Lactate 0.9 0.7 - 2.0 mmol/L [facility] Blood 05/01/2023 11:5 2 PM PULPWOOD CUTTER 05/02/2023 12:04 AM PULPWOOD CUTTER Faustino Elias MD LAB BLOOD ORDERABLES Final Result Performing Organization Address [facility] de Phone Number [facility] [place] [address] * (ABNORMAL) CBC without differential (05/01/2023 11:52 PM PULPWOOD CUTTER) Pathologist [facility] WBC 15.1(H) 3.8 - 9.9 K/cumm [facility] Hgb 10.9(L) 13.0 - 17.5 g/dL [facility] Comment: Interpretive Data A reference range for this assay has not been established for patients with an unknown legal sex. Please refer to the laboratory test catalog for established sex-specific reference intervals. Current interpretive data was last revised on 2023. Hct 31.8(L) 38.9 - 50.3 % [facility] Comment: Interpretive Data A reference range for this assay has not been established for patients with an unknown legal sex. Please refer to the laboratory test catalog for established sex-specific reference intervals. Current interpretive data was last revised on 2023. Plt 104(L) 150 - 400 K/cumm [facility] MPV 9.5 9.1 - 12.3 fL [facility] RBC 3.55(L) 4.30 - 5.80 M/cumm [facility] Comment: Interpretive Data A reference range for this assay has not been established for patients with an unknown legal sex. Please refer to the laboratory test catalog for established sex-specific reference intervals. Current interpretive data was last revised on 2023. MCV 89.6 81.3 - 96.4 fL [facility] MCH 30.7 27.1 - 33.3 pg [facility] MCHC 34.3 32.3 - 35.7 g/dL [facility] RDW CV 12.5 11.1 - 14.9 % [facility] RDW SD 41.4 35.7 - 48.1 fL [facility] NRBC abs 0.00 0.00 - 0.01 K/cumm [facility] Blood 05/01/2023 11:5 2 PM PULPWOOD CUTTER 05/02/2023 12:04 AM PULPWOOD CUTTER Faustino Elias MD LAB BLOOD ORDERABLES Final Result 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 If further testing is needed to evaluate this result, consider in-laboratory plasma potassium. Current Interpretive Data was last revised on 2022. Cl, POC 109 97 - 110 mmol/L [facility] Ionized Ca, POC 4.51 4.50 - 5.10 mg/dL [facility] Glucose, POC 112 70 - 199 mg/dL [facility] Lactate, POC 1.0 0.7 - 2.2 mmol/L [facility] SO2 (natalia) arterial 99(H) 90 - 95 % [facility] Base excess, POC -2.5 mmol/L [facility] HCO3, Art POC 22 20 - 30 mmol/L [facility] Hct, POC 35.0(L) 41.4 - 51.6 % [facility] O2 Sat, Art POC (Calc) 98 % [facility] Total Hb, POC 11.6(L) 13.8 - 17.2 g/dL [facility] Blood 05/01/2023 11:0 3 PM PULPWOOD CUTTER 05/01/2023 11:03 PM PULPWOOD CUTTER Alonzo Duncan MD LAB POCT ORDERABLES - DE VICE Final Result Performing Organization Address [facility]/ZIP Co de Phone Number [facility] Department [place] [employer] [place] [address] * Potassium, whole blood (05/01/2023 7:28 PM PULPWOOD CUTTER) Pathologist [facility] Potassium, bld 4.1 3.3 - 4.9 mmol/L [facility] Blood 05/01/2023 7:28 PM PULPWOOD CUTTER 05/01/2023 7:35 PM PULPWOOD CUTTER Alonzo Duncan MD LAB BLOOD ORDERABLES Fin al Result Performing Organization Address City/[facility]/ZIP Co de Phone Number [facility] [place] [employer] [place] [address] * (ABNORMAL) Hepatic function panel (05/01/2023 7:28 PM PULPWOOD CUTTER) Bilirubin, total 0.4 0.1 - 1.2 mg/dL [facility] Bilirubin, direct <0.2 0.1 - 0.3 mg/dL [facility] Protein, pl 6.2(L) 6.5 - 8.5 g/dL [facility] Albumin 3.5 3.5 - 5.0 g/dL [facility] Alk phos 71 40 - 130 Units/L [facility] ALT 17 7 - 55 Units/L [facility] AST 19 10 - 50 Units/L [facility] Blood 05/01/2023 7:28 PM PULPWOOD CUTTER 05/01/2023 7:43 PM PULPWOOD CUTTER Alonzo Duncan MD LAB BLOOD ORDERABLES Fin al Result Performing Organization Address City/[facility]/ZIP Co de Phone Number [facility] Department [place] [address] * POCT glucose (05/01/2023 7:27 PM PULPWOOD CUTTER) [facility] Signature Glucose, POC 125 70 - 199 mg/dL [facility] Blood 05/01/2023 7:27 PM PULPWOOD CUTTER 05/01/2023 7:27 PM PULPWOOD CUTTER Alonzo Duncan MD LAB POCT ORDERABLES - DE VICE Final Result Performing Organization Address [facility] Co de Phone Number [facility] [place] [address] * XR Chest 1 View (Portable) (05/01/2023 6:41 PM PULPWOOD CUTTER) Anatomical Region Laterality Modality Body, Chest N/A Computed Radiogr aphy 05/02/2023 9:45 AM PULPWOOD CUTTER Impressions 05/02/2023 9:47 AM PULPWOOD CUTTER Comparison is made to chest radiograph 05/01/23 [...] Otoniel Avalos M.D. Narrative 05/02/2023 9:47 AM PULPWOOD CUTTER EXAMINATION: 1 view chest radiograph Procedure Note [...] Resul t * eGFR (05/01/2023 5:50 PM PULPWOOD CUTTER) eGFR 79 >=60 mL/min/1. [address] [facility] Comment: Interpretive Data Reference Interval Normal [...] last reviewed 2021. Blood 05/01/2023 5:50 PM PULPWOOD CUTTER 05/01/2023 6:02 PM PULPWOOD CUTTER us Alonzo Duncan MD LAB BLOOD ORDERABLES Fin al Result [facility] [place] [address] * (ABNORMAL) Comprehensive metabolic panel (05/01/2023 5:50 PM PULPWOOD CUTTER) Sodium 139 135 - 145 mmol/L [facility] Potassium, pl See Comment 3.3 - 4.9 mmol/L [facility] Comment:Credited; Hemolyzed Specimen Chloride 106 97 - 110 mmol/L [facility] CO2 23 22 - 32 mmol/L [facility] Anion gap 10 2 - 15 mmol/L [facility] BUN 23 6 - 25 mg/dL [facility] Creatinine 1.26 0.80 - 1.30 mg/dL [facility] Glucose 117 70 - 199 mg/dL [facility] [...] 2022. Calcium 7.8(L) 8.5 - 10.3 mg/dL [facility] Bilirubin, total 0.5 0.1 - 1.2 mg/dL [facility] Protein, pl 6.4(L) 6.5 - 8.5 g/dL [facility] Albumin 3.7 3.5 - 5.0 g/dL [facility] Alk phos 65 40 - 130 Units/L [facility] Comment:Hemolyzed; result ma y be falsely decreased ALT See Comment 7 - 55 Units/L [facility] Comment:Credited; Hemolyzed Specimen AST See Comment 10 - 50 Units/L [facility] Comment:Credited; Hemolyzed Specimen Blood 05/01/2023 5:50 PM PULPWOOD CUTTER 05/01/2023 5:56 PM PULPWOOD CUTTER Result [facility] Alonzo Duncan MD LAB BLOOD ORDERABLES Fin al Result Performing Organization Address [facility] Co de Phone Number [facility] Department [place] [address] * Lactate, whole blood (05/01/2023 5:10 PM PULPWOOD CUTTER) Lactate, bld 1.5 0.7 - 2.0 mmol/L [facility] Blood 05/01/2023 5:10 PM PULPWOOD CUTTER 05/01/2023 5:19 PM PULPWOOD CUTTER Result [facility] Alonzo Duncan MD LAB BLOOD ORDERABLES Fin al Result Performing Organization Address [facility] Co de Phone Number [facility] Department [place] [address] * POCT glucose (05/01/2023 5:10 PM PULPWOOD CUTTER) Glucose, POC 104 70 - 199 mg/dL [facility] Blood 05/01/2023 5:10 PM PULPWOOD CUTTER 05/01/2023 5:10 PM PULPWOOD CUTTER Alonzo Duncan MD LAB POCT ORDERABLES - DE VICE Final Result Performing Organization Address [facility] Co de Phone Number [facility] [place] [address] * (ABNORMAL) CBC without differential (05/01/2023 5:10 PM PULPWOOD CUTTER) [facility] WBC 15.0(H) 3.8 - 9.9 K/cumm [facility] Hgb 11.1(L) 13.0 - 17.5 g/dL [facility] Comment: Interpretive Data A reference range for this assay has not been established for patients with an unknown legal sex. Please refer to the laboratory test catalog for established sex-specific reference intervals. Current interpretive data was last revised on 2023. Hct 32.3(L) 38.9 - 50.3 % [facility] Comment: Interpretive Data A reference range for this assay has not been established for patients with an unknown legal sex. Please refer to the laboratory test catalog for established sex-specific reference intervals. Current interpretive data was last revised on 2023. Plt 110(L) 150 - 400 K/cumm [facility] MPV 9.0(L) 9.1 - 12.3 fL [facility] RBC 3.66(L) 4.30 - 5.80 M/cumm [facility] Comment: Interpretive Data A reference range for this assay has not been established for patients with an unknown legal sex. Please refer to the laboratory test catalog for established sex-specific reference intervals. Current interpretive data was last revised on 2023. MCV 88.3 81.3 - 96.4 fL [facility] MCH 30.3 27.1 - 33.3 pg [facility] MCHC 34.4 32.3 - 35.7 g/dL [facility] RDW CV 12.6 11.1 - 14.9 % [facility] RDW SD 41.1 35.7 - 48.1 fL [facility] SYSTEMS NRBC abs 0.00 0.00 - 0.01 K/cumm [facility] Blood 05/01/2023 5:10 PM [facility] 05/01/2023 5:19 PM [facility] Faustino Elias MD LAB BLOOD ORDERABLES Final Result [facility] [place] [address] * Sepsis Lactate w/ Reflex (05/01/2023 1:18 PM PULPWOOD CUTTER) Sepsis Lactate 1.9 0.7 - 2.0 mmol/L [facility] Blood 05/01/2023 1:18 PM [facility] C[facility] 05/01/2023 1:28 PM [facility] C[facility]TER us Lisa Christiansen MD LAB BLOOD ORDERABLES Sally l Result Performing Organization Address [facility] Co de Phone Number [facility] [place] [address] * DE CRITICAL CARE ILL/INJURED PATIENT INIT 30-74 MIN (05/01/2023 12:32 PM P[facility]WO[facility] CUTTER) Narrative Kameron Wadsworth MD - 05/01/2023 12:32 PM [facility] C[facility]TER Kameron Wadsworth MD ? 05/01/2023 12:32 PM [...] Result * POCT glucose (05/01/2023 11:40 AM PULPWOOD CUTTER) Pathologist [facility] Glucose, POC 118 70 - 199 mg/dL [facility] Blood 05/01/2023 11:4 0 AM [facility] C[facility]TER 05/01/2023 11:40 AM [facility] C[facility]TER Result [facility] Alonzo Duncan MD LAB POCT ORDERABLES - DE VICE Final Result Performing Organization Address [facility] Co de Phone Number [facility] Department [place] [employer] [place] [address] * Troponin I high-sensitivity (05/01/2023 11:40 AM PULPWOOD CUTTER) [facility] Trop I hs 15 <=35 ng/L [facility] Comment: Interpretive Data For further hscTnI resources including the diagnostic algorithm and an aid in interpretation, copy and paste this link: [email or web address].testcatalog.org/[email or web address] Current Interpretive Data last revised 2019. Blood 05/01/2023 11:4 0 AM P[facility]OD C[facility]TER 05/01/2023 11:48 AM P[facility]WOOD CUTTER Result [facility] Marvin Granados MD LAB BLOOD ORDERABLES Final Re sult Performing Organization Address [facility]/ZIP Co de Phone Number [facility] Department [place] [employer] [place] [address] * (ABNORMAL) Blood gas, arterial (05/01/2023 11:40 AM PULPWOOD CUTTER) [facility] pH, Art 7.31(L) 7.35 - 7.45 [facility] PCO2, Arterial 46(H) 35 - 45 mmHg [facility] PO2, Arterial 134(H) 83 - 108 mmHg [facility] HCO3 Art (Calculated) 24 20 - 30 mmol/L [facility] BE, art -3 mmol/L [facility] Comment: Interpretive Data No Reference Range Established Current Interpretive Data was last revised on 2017 O2 Sat Art (Measured) 99(H) 90 - 95 % [facility] Blood 05/01/2023 11:4 0 AM [facility] C[facility]TER 05/01/2023 11:48 AM [facility] C[facility]TER Marvin Granados MD LAB BLOOD ORDERABLES Final Re sult Performing Organization Address City/[facility]/ZIP Co de Phone Number [facility] [place] [address] * Creatine kinase (CK), total (05/01/2023 11:40 AM PULPWOOD CUTTER) CK 197 40 - 300 Units/L [facility] Blood 05/01/2023 11:4 0 AM [facility] C[facility]TER 05/01/2023 11:48 AM [facility] C[facility]TER Marvin Granados MD LAB BLOOD ORDERABLES Final Re sult Performing Organization Address City/[facility] Co de Phone Number [facility] [place] [address] * eGFR (05/01/2023 10:15 AM PULPWOOD CUTTER) eGFR 60 >=60 mL/min/1. 73 m2 [facility] Comment: Interpretive Data Reference Interval Normal ?>/= [...] reviewed 2021. Blood 05/01/2023 10:1 5 AM P[facility] C[facility]TER 05/01/2023 10:24 AM [facility] C[facility]TER Faustino Elias MD LAB BLOOD ORDERABLES Final Result Performing Organization Address City/[facility]/ZIP Co de Phone Number [facility] [place] [address] * (ABNORMAL) Lactate (05/01/2023 10:15 AM PULPWOOD CUTTER) Pathologist [facility] Lactate 2.7(H) 0.7 - 2.0 mmol/L [facility] Blood 05/01/2023 10:1 5 AM [facility] C[facility]TER 05/01/2023 10:22 AM [facility] C[facility]TER Faustino Elias MD LAB BLOOD ORDERABLES Final Result [facility] [place] [address] * (ABNORMAL) Comprehensive metabolic panel (05/01/2023 10:15 AM PUL[facility]WOOD CUTTER) Sodium 141 135 - 145 mmol/L [facility] Potassium, pl 4.1 3.3 - 4.9 mmol/L [facility] Chloride 105 97 - 110 mmol/L [facility] CO2 25 22 - 32 mmol/L [facility] Anion gap 11 2 - 15 mmol/L [facility] BUN 21 6 - 25 mg/dL [facility] Creatinine 1.57(H) 0.80 - 1.30 mg/dL [facility] Glucose 134 70 - 199 mg/dL [facility] [...] 2022. Calcium 8.5 8.5 - 10.3 mg/dL [facility] Bilirubin, total 1.1 0.1 - 1.2 mg/dL [facility] Protein, pl 6.9 6.5 - 8.5 g/dL [facility] Albumin 4.1 3.5 - 5.0 g/dL [facility] Alk phos 80 40 - 130 Units/L [facility] ALT 21 7 - 55 Units/L [facility] AST 21 10 - 50 Units/L [facility] Blood 05/01/2023 10:1 5 AM [facility] C[facility]TER 05/01/2023 10:22 AM [facility] C[facility]TER Faustino Elias MD LAB BLOOD ORDERABLES Final Result [facility] [place] [address] * (ABNORMAL) CBC without differential (05/01/2023 10:15 AM PULPWOOD CUTTER) Pathologist [facility] WBC 16.7(H) 3.8 - 9.9 K/cumm [facility] Hgb 12.5(L) 13.0 - 17.5 g/dL [facility] Comment: Interpretive Data A reference range for this assay has not been established for patients with an unknown legal sex. Please refer to the laboratory test catalog for established sex-specific reference intervals. Current interpretive data was last revised on 2023. Hct 37.2(L) 38.9 - 50.3 % [facility] Comment: Interpretive Data A reference range for this assay has not been established for patients with an unknown legal sex. Please refer to the laboratory test catalog for established sex-specific reference intervals. Current interpretive data was last revised on 2023. Plt 109(L) 150 - 400 K/cumm [facility] MPV 8.8(L) 9.1 - 12.3 fL [facility] RBC 4.14(L) 4.30 - 5.80 M/cumm [facility] Comment: Interpretive Data A reference range for this assay has not been established for patients with an unknown legal sex. Please refer to the laboratory test catalog for established sex-specific reference intervals. Current interpretive data was last revised on 2023. MCV 89.9 81.3 - 96.4 fL [facility] MCH 30.2 27.1 - 33.3 pg [facility] MCHC 33.6 32.3 - 35.7 g/dL [facility] RDW CV 12.5 11.1 - 14.9 % [facility] RDW SD 41.0 35.7 - 48.1 fL [facility] NRBC abs 0.00 0.00 - 0.01 K/cumm [facility] Blood 05/01/2023 10:1 5 AM [facility] C[facility]TER 05/01/2023 10:22 AM [facility] C[facility]TER us Faustino Elias MD LAB BLOOD ORDERABLES Final Result [facility] Department of Laboratories [place], [place] [id number] * (ABNORMAL) Sepsis Lactate w/ Reflex (05/01/2023 10:15 AM PUL[facility]WO[facility] C[facility]TER) Sepsis Lactate 2.7(H) 0.7 - 2.0 mmol/L [facility] Blood 05/01/2023 10:1 5 AM [facility] C[employer]TER 05/01/2023 10:22 AM [facility] C[facility]TER Lisa Christiansen MD LAB BLOOD ORDERABLES Sally l Result Performing Organization Address [facility] de Phone Number [facility] [place] [place] [address] * (ABNORMAL) Sepsis Lactate w/ Reflex (05/01/2023 8:13 AM P[facility] C[facility]TER) Sepsis Lactate 2.1(H) 0.7 - 2.0 mmol/L [facility] Blood 05/01/2023 8:13 AM [facility] C[facility]TER 05/01/2023 8:25 AM P[facility] C[facility]TER Lisa Christiansen MD LAB BLOOD ORDERABLES Sally l Result Performing Organization Address [facility] de Phone Number [facility] Department [place] [address] * Check Sample (05/01/2023 8:13 AM PULPWOOD CUTTER) ABO Rh A Positive HCLL OTHER 05/01/2023 8:13 AM P[facility]WO[facility] CUTTER 05/01/2023 8:29 AM P[facility] C[facility]TER Kameron Wadsworth MD LAB BLOOD ORDERABLES Fin al Result Performing Organization Address [facility] [place] [address] * Type and screen (05/01/2023 7:52 AM PULPWOOD CUTTER) Ellen, indirect Negative ABO Rh A Positive [facility] Blood 05/01/2023 7:52 AM P[facility] C[facility]TER 05/01/2023 8:06 AM [facility] C[facility]TER Narrative [facility] - 05/01/2023 8:55 AM [facility] C[facility]TER Has the patient had Daratumumab or Isatuximab in the past 6 months?->Unknown us Faustino Elias MD LAB BLOOD BANK TEST ORDERA BLES Final Result [facility] [place] [address] * DE CRITICAL CARE ILL/INJURED PATIENT INIT 30-74 MIN (05/01/2023 7:33 AM PULPWOOD CUTTER) Narrative Nagi Landa MD - 05/01/2023 7:33 AM P[facility] C[facility]TER Nagi Landa MD ? 05/01/2023 11:34 PM [...] CT Body Outside Consult (05/01/2023 6:16 AM PULPWOOD CUTTER) Anatomical Region Laterality Modality Body N/A Computed Tomogra phy 05/01/2023 6:26 AM PULPWOOD CUTTER Impressions 05/01/2023 8:52 AM PULPWOOD CUTTER 1. ??Extension of the type B thoracic [...] images may or may not represent the [place] source data set and thus may contain changes that may lower the accuracy of this second-opinion interpretation. Dictated by: Jr Gallagher MD The radiology attending physician has personally reviewed this study, and had reviewed and/or edited this written report and agrees with it. Electronically signed by: Ruthie Malone M.D. Narrative 05/01/2023 8:52 AM P[facility]WO[facility] C[facility]TER EXAMINATION: RADIOLOGY CONSULTATION ON OUTSIDE IMAGING STUDY STUDY INITIALLY PERFORMED: 05/01/2023 at [facility]. TYPE OF STUDY: Multiple CT images [...] IMAGING STUDY STUDY INITIALLY PERFORMED: 05/01/2023 at [facility]. TYPE OF STUDY: Multiple CT images [...] images may or may not represent the [place] source data set and thus may contain [...] * XR Outside Reference (05/01/2023 6:05 AM PULPWOOD CUTTER) Impressions [facility] - 05/01/2023 6:05 AM P[facility]WO[facility] C[facility]TER These images are for Reference purposes only and have not been reviewed by [facility]. ??There will be no report generated by a [facility] Radiologist. Narrative [facility] - 05/01/2023 6:05 AM P[facility]PWO[facility] CUTTER EXAMINATION: ??Images For Reference Purposes Only Nagi Landa MD IMG XR PROCEDURES Sally l Result [facility] * CT Body Outside Consult (05/01/2023 6:01 AM PULPWOOD CUTTER) Anatomical Region Laterality Modality Body N/A Computed Tomogra phy 05/01/2023 6:18 AM PULPWOOD CUTTER Impressions 05/01/2023 8:52 AM PULPWOOD CUTTER Incompletely imaged Type B aortic dissection, which [...] images may or may not represent the [place] source data set and thus may contain changes that may lower the accuracy of this second-opinion interpretation. Dictated by: Jr Gallagher MD The radiology attending physician has personally reviewed this study, and had reviewed and/or edited this written report and agrees with it. Electronically signed by: Ruthie Malone M.D. Narrative 05/01/2023 8:52 AM P[facility] C[facility]TER EXAMINATION: RADIOLOGY CONSULTATION ON OUTSIDE IMAGING STUDY STUDY INITIALLY PERFORMED: 05/01/2023 at [facility]. TYPE OF STUDY: Multiple CT images [...] opacification/mixing occurring from likely fenestration below the [id number]. ??The nonopacification of the false lumen may [...] IMAGING STUDY STUDY INITIALLY PERFORMED: 05/01/2023 at [facility]. TYPE OF STUDY: Multiple CT images [...] opacification/mixing occurring from likely fenestration below the [id number]. The nonopacification of the false lumen may [...] images may or may not represent the [place] source data set and thus may contain changes that may lower the accuracy of this second-opinion interpretation. Dictated by: Jr Gallagher MD The radiology attending physician has personally reviewed this study, and had reviewed and/or edited this written report and agrees with it. Electronically signed by: Ruthie Malone M.D. us Nagi Landa MD IMG CT PROCEDURES Sally l Result * DE ARTL CATHJ/CANNULJ MNTR/TRANSFUSION SPX PRQ (05/01/2023 5:56 AM PULPWOOD CUTTER) Narrative Nagi Landa MD - 05/01/2023 5:56 AM P[facility] C[employer]TER Meron Monterroso MD ? 05/01/2023 ??7:01 AM Arterial line Date/Time: 05/01/2023 5:56 AM Performed by: Meron Monterroso MD Authorized by: Nagi Landa MD ?? [place] Protocol: ??RN Notified of Procedure: yes ?? [...] Final Result * eGFR (05/01/2023 5:19 AM PULPWOOD CUTTER) [facility] eGFR 66 >=60 mL/min/1. [address] [facility] Comment: Interpretive Data Reference Interval Normal [...] last reviewed 2021. Blood 05/01/2023 5:19 AM P[facility]PWOOD CUTTER 05/01/2023 5:31 AM PULPWOOD CUTTER us Meron Aguilera MD LAB BLOOD ORDERABLES Final Result [facility] [place] [address] * Fentanyl Confirmation, Urine (05/01/2023 5:19 AM PULPWOOD CUTTER) Fentanyl Conf, Ur Confirmed Positive Cutoff 0.3ng/mL [facility] Acetylfentanyl Conf, Ur Does Not Confirm Cutoff 1 ng/mL [facility] Acrylfentanyl Conf, Ur Does Not Confirm Cutoff 1 ng/mL [facility] Furanylfentanyl Conf, Ur Does Not Confirm Cutoff 1 ng/mL [facility] Fentanyl Metabolite (Norfentanyl) Conf, Ur Confirmed Positive [...] needed. Performance characteristics were determined by the [facility] in a manner consistent with CLIA requirement and has not been cleared or approved by the U.S. Food and Drug Administration. Current interpretive data was last revised 2020. Urine 05/01/2023 5:19 AM PULPWOOD CUTTER 05/01/2023 5:31 AM PULPWOOD CUTTER Meron Aguilera MD LAB URINE ORDERABLES Final Result Performing Organization Address [facility] Co de Phone Number [facility] [place] [address] * (ABNORMAL) Urinalysis, microscopic only (05/01/2023 5:19 AM PULPWOOD CUTTER) WBC, ur 0-5 0 - 5 /HPF [facility] RBC, ur 21-50(A) 0 - 2 /HPF [facility] Epithelial cells, squamous, ur 1-5 0 - 5 /HPF [facility] Bacteria, ur Trace(A) [facility] Culture Reflex Comment Reflex conditions for urine culture (WBC >10) not met. [facility] Urine 05/01/2023 5:19 AM PULPWOOD CUTTER 05/01/2023 5:28 AM P[facility]WOOD CUTTER Meron Aguilera MD LAB URINE ORDERABLES Final Result Performing Organization Address City/[facility] Co de Phone Number [facility] [place] [address] * (ABNORMAL) Differential, auto (05/01/2023 5:19 AM PULPWOOD CUTTER) Neutrophil abs 17.9(H) 1.7 - 6.5 K/cumm [facility] Imm gran abs 0.3(H) 0.0 - 0.1 K/cumm [facility] Lymphocyte abs 1.0 0.8 - 3.3 K/cumm [facility] Monocyte abs 1.4(H) 0.2 - 0.8 K/cumm [facility] Eosinophil abs 0.0 0.0 - 0.5 K/cumm [facility] Basophil abs 0.1 0.0 - 0.1 K/cumm [facility] Neutrophil pct 86.9 % [facility] Comment: Interpretive Data Percent cell count reference ranges are not reported, since discordance with absolute values may lead to misinterpretation of CBC data. Current Interpretive Data was last revised on 2017. Imm gran pct 1.4 % [facility] Comment: Interpretive Data Percent cell count reference ranges are not reported, since discordance with absolute values may lead to misinterpretation of CBC data. Current Interpretive Data was last revised on 2017. Lymphocyte pct 4.7 % [facility] Comment: Interpretive Data Percent cell count reference ranges are not reported, since discordance with absolute values may lead to misinterpretation of CBC data. Current Interpretive Data was last revised on 2017. Monocyte pct 6.7 % [facility] Comment: Interpretive Data Percent cell count reference ranges are not reported, since discordance with absolute values may lead to misinterpretation of CBC data. Current Interpretive Data was last revised on 2017. Eosinophil pct 0.0 % [facility] Comment: Interpretive Data Percent cell count reference ranges are not reported, since discordance with absolute values may lead to misinterpretation of CBC data. Current Interpretive Data was last revised on 2017. Basophil pct 0.3 % [facility] Comment: Interpretive Data Percent cell count reference ranges are not reported, since discordance with absolute values may lead to misinterpretation of CBC data. Current Interpretive Data was last revised on 2017. Blood 05/01/2023 5:19 AM PULPWOOD CUTTER 05/01/2023 5:31 AM PULPWOOD CUTTER us Meron Aguilera MD LAB BLOOD ORDERABLES Final Result [facility] [place] [address] * (ABNORMAL) Drugs of Abuse Screen, Urine with Reflex Confirmation (05/01/2023 5:19 AM PULPWOOD CUTTER) [facility] Amphetamine, ur Not Detected CutOff 500ng/mL [facility] Comment: Interpretive Data - Amphetamines: ??Samples containing greater than 500 ng/mL d-methamphetamine ??or other cross-reacting amphetamine compounds are reported as positive. ??Amphetamine immunoassays are subject to significant false positive rates due to cross-reactivity of non-amphetamine drugs. Confirmatory testing required for definitive results. Current Interpretive Data was last reviewed 2022. Barbiturates, ur Not Detected CutOff 200ng/mL [facility] Comment: Interpretive Data - Barbiturates: ??Samples containing greater than 200 ng/mL secobarbital or other cross-reacting barbiturate compounds are reported as positive. ??False positive and false negative results are possible. Confirmatory testing required for definitive results. Current Interpretive Data was last reviewed 2022. Benzodiazepines, ur Not Detected CutOff 100ng/mL [facility] Comment: Interpretive Data - Benzodiazepines: ??Samples containing greater than 100 ng/mL nordiazepam or other cross-reacting compounds are reported as positive. False positive and false negative results are possible. Confirmatory testing required for definitive results. Current Interpretive Data was last reviewed 2022. Cannabinoids, ur Screen Positive, presumptive (A) CutOff 50 ng/mL [facility] Comment: Interpretive Data - Cannabinoids: ??Samples containing greater than 50 ng/mL delta-9 THC -COOH or other cross-reacting compounds are reported as positive. ??False positive and false negative results are possible. ??Confirmatory testing required for definitive results. Current Interpretive Data was last reviewed 2022. Cocaine, ur Not Detected CutOff 150ng/mL [facility] Comment: Interpretive Data - Cocaine: ??Samples containing greater than 150 ng/mL benzoylecgonine or other cross-reacting compounds are reported as positive. False positive and false negative results are possible. Confirmatory testing required for definitive results. Current Interpretive Data was last reviewed 2022. Fentanyl, Ur Screen Positive, presumptive (A) Cutoff 1 ng/mL [facility] Comment: Interpretive Data - Fentanyl: ??Samples containing greater than 1 ng/mL fentanyl or other cross-reacting fentanyl compounds are reported as positive. ??False positive and false negative results are possible. Confirmatory testing required for definitive results. Current Interpretive Data was last reviewed 2022. Methadone, ur Not Detected CutOff 300ng/mL [facility] Comment: Interpretive Data - Methadone: ??Samples containing greater than 300 ng/mL d,l-methadone or other cross-reacting compounds are reported as positive. ??False positive and false negative results are possible. Confirmatory testing required for definitive results. Current Interpretive Data was last reviewed 2022. Opiates, ur Not Detected CutOff 300ng/mL [facility] Comment: Interpretive Data - Opiates: ??Samples containing greater than 300 ng/mL morphine or other cross-reacting compounds are reported as positive. ??False positive and false negative results are possible. Confirmatory testing required for definitive results. Current Interpretive Data was last reviewed 2022. Oxycodone, ur Not Detected CutOff 100ng/mL [facility] Comment: Interpretive Data - Oxycodone: ??Samples containing greater than 100 ng/mL oxycodone or other cross-reacting compounds are reported as ??positive. ??False positive and false negative results are possible. Confirmatory testing required for definitive results. Current Interpretive Data was last reviewed 2022. Phencyclidine, ur Not Detected CutOff 25 ng/mL [facility] Comment: Interpretive Data - Phencyclidine: ??Samples containing greater than 25 ng/mL phencyclidine or other cross-reacting compounds are reported as positive. ??False positive and false negative results are possible. Confirmatory testing required for definitive results. Current Interpretive Data was last reviewed 2022. Urine Creatinine 88 mg/dL [facility] Comment: Interpretive Data Urine Creatinine: < 10 mg/dL is extremely dilute = or > 10 but < 20 mg/dL is dilute = or > 20 mg/dL is normal Current Interpretive Data was last revised on 2017. Urine 05/01/2023 5:19 AM PULPWOOD CUTTER 05/01/2023 5:31 AM PULPWOOD CUTTER Narrative [facility] - 05/01/2023 6:34 AM PULPWOOD CUTTER Drug of Abuse screening is performed by immunoassay for medical purposes only. ??This is not to be used for Pain Management purposes. ??If Detected, confirmation testing will be performed for Amphetamines, Cocaine, Fentanyl, Methadone, Opiates, Oxycodone or Phencyclidine. Meron Aguilera MD LAB URINE ORDERABLES Final Result Performing Organization Address [facility] Co de Phone Number [facility] [place] [place] [address] * (ABNORMAL) Urinalysis reflex to microscopic and culture Urine (05/01/2023 5:19 AM PULPWOOD CUTTER) Color, ur Straw Yellow [facility] Clarity, ur Clear Clear [facility] Specific gravity, ur >1.042(H) 1.003 - 1.030 [facility] pH, urine 6.5 [facility] Comment: Interpretive Data ? Urine pH is affected by diet, medications, systemic acid-base disturbances, and renal tubular function. ??pH may affect urinary stone formation. ??For example, urine pH below 6.0 may help reduce the tendency for calcium phosphate stones and pH greater than 6.0 may reduce the tendency for uric acid stone formation. Source: [facility] [employer] Current Interpretive Data was last revised on 2017 Protein, ur ql 1+(A) Negative [facility] Glucose, ur ql Trace(A) Negative [facility] Ketones, ur Negative Negative [facility] Bilirubin, ur Negative Negative [facility] Blood, ur 1+(A) Negative [facility] Urobilinogen, ur <2.0 <2.0 mg/dL [facility] Nitrite, ur Negative Negative [facility] Leukocyte esterase, ur Negative Negative [facility] UA reflex comment Reflex to microscopic UA will be performed. [facility] Urine 05/01/2023 5:19 AM [facility] 05/01/2023 5:28 AM [facility] Meron Aguilera MD LAB MICROBIOLOGY - GENERAL ORDERABLES Final Result Performing Organization Address [facility] Co de Phone Number [facility] [place] [address] * aPTT (05/01/2023 5:19 AM [facility] C[facility]TER) Pathologist [facility] aPTT 34 28 - 38 sec [facility] Comment: Interpretive Data Heparin therapeutic range: 66.0 - 100.0 seconds. Range based on correlation with therapeutic heparin activity range of 0.3 - 0.7 Units/mL. Current interpretive data was last revised on 2023. Blood 05/01/2023 5:19 AM [facility] 05/01/2023 5:30 AM [facility] Meron Aguilera MD LAB BLOOD ORDERABLES Final Result Performing Organization Address [facility] [place] [address] * Protime-INR (05/01/2023 5:19 AM [facility] C[facility]TER) Pathologist [facility] PT 13.7 10.3 - 13.7 sec [facility] INR 1.20 0.90 - 1.20 [facility] Comment: Interpretive data Oral anticoagulant therapeutic ranges: Venous thromboembolism prophylaxis or treatment: 2.0-3.0 CARDIOLOGY Standard range: 2.0-3.0 High-intensity range: 2.5-3.5 Refer to indication-specific guidelines for appropriate target ranges for prosthetic heart valve replacement. Current interpretive data was last revised on 2019. Blood 05/01/2023 5:19 AM [facility] 05/01/2023 5:30 AM [facility] Meron Aguilera MD LAB BLOOD ORDERABLES Final Result Performing Organization Address City/[facility]/[place] [address] * (ABNORMAL) Comprehensive metabolic panel (05/01/2023 5:19 AM [facility] C[facility]) Pathologist [facility] Sodium 140 135 - 145 mmol/L [facility] Potassium, pl 4.1 3.3 - 4.9 mmol/L [facility] Chloride 103 97 - 110 mmol/L [facility] CO2 26 22 - 32 mmol/L [facility] Anion gap 11 2 - 15 mmol/L [facility] BUN 20 6 - 25 mg/dL [facility] Creatinine 1.46(H) 0.80 - 1.30 mg/dL [facility] Glucose 137 70 - 199 mg/dL [facility] [...] 2022. Calcium 9.0 8.5 - 10.3 mg/dL [facility] Bilirubin, total 0.8 0.1 - 1.2 mg/dL [facility] Protein, pl 7.4 6.5 - 8.5 g/dL [facility] Albumin 4.6 3.5 - 5.0 g/dL [facility] Alk phos 90 40 - 130 Units/L [facility] ALT 20 7 - 55 Units/L [facility] AST 21 10 - 50 Units/L [facility] Blood 05/01/2023 5:19 AM [facility] 05/01/2023 5:31 AM [facility] us Meron Aguilera MD LAB BLOOD ORDERABLES Final Result [facility] [place] [address] * (ABNORMAL) CBC with auto differential (05/01/2023 5:19 AM [facility] C[facility]TER) Pathologist [facility] WBC 20.6(H) 3.8 - 9.9 K/cumm [facility] Hgb 13.6 13.0 - 17.5 g/dL [facility] Comment: Interpretive Data A reference range for this assay has not been established for patients with an unknown legal sex. Please refer to the laboratory test catalog for established sex-specific reference intervals. Current interpretive data was last revised on 2023. Hct 39.4 38.9 - 50.3 % [facility] Comment: Interpretive Data A reference range for this assay has not been established for patients with an unknown legal sex. Please refer to the laboratory test catalog for established sex-specific reference intervals. Current interpretive data was last revised on 2023. Plt 165 150 - 400 K/cumm [facility] MPV 8.8(L) 9.1 - 12.3 fL [facility] RBC 4.45 4.30 - 5.80 M/cumm [facility] Comment: Interpretive Data A reference range for this assay has not been established for patients with an unknown legal sex. Please refer to the laboratory test catalog for established sex-specific reference intervals. Current interpretive data was last revised on 2023. MCV 88.5 81.3 - 96.4 fL [facility] MCH 30.6 27.1 - 33.3 pg [facility] MCHC 34.5 32.3 - 35.7 g/dL [facility] RDW CV 12.4 11.1 - 14.9 % [facility] RDW SD 40.4 35.7 - 48.1 fL [facility] NRBC abs 0.00 0.00 - 0.01 K/cumm [facility] Blood 05/01/2023 5:19 AM [facility] C[facility] 05/01/2023 5:31 AM [facility]TER us Meron Aguilera MD LAB BLOOD ORDERABLES Final Result [facility] [place] [address] * (ABNORMAL) ECG 12 lead (05/01/2023 5:15 AM [facility]) Narrative [facility] - 05/01/2023 5:15 AM [facility] Meron Monterroso MD ? 05/01/2023 ??5:16 AM [...] XR Chest 1 View (05/01/2023 5:14 AM [facility]) Anatomical Region Laterality Modality Body, Chest N/A Computed Radiogr aphy 05/01/2023 5:18 AM [facility] Impressions 05/01/2023 8:36 AM [facility] No prior imaging available for comparison. ??Single view chest: Cardiac contours likely exaggerated by imaging technique. ??No pleural effusion. ??No pneumothorax. ??Mild bibasilar atelectasis. Dictated by: Jr Gallagher MD The radiology attending physician has personally reviewed this study, and had reviewed and/or edited this written report and agrees with it. Electronically signed by: Ruthie Malone M.D. Narrative 05/01/2023 8:36 AM [facility] EXAMINATION: 1 view chest radiograph Procedure Note [...] 05/05/23 at 1800 Given 05/16/2023 12:08 PM [facility] 1,000 mg Given 05/16/2023 6:19 AM [facility] 1,000 mg Given 05/16/2023 12:16 AM [facility] 1,000 mg albuterol HFA (PROVENTIL HFA,VENTOLIN HFA,PROAIR HFA) 90 mcg/actuation inhaler 2 puff 2 puff, inhalation, Every 4 hours PRN (respiratory therapy technician), wheezing, Starting on Catarina 05/05/23 at 1249 aspirin chewable tablet 81 mg 81 mg, oral, Daily, First dose (after last modification) on Tue05/06/23 at 0900 Given 05/16/2023 9:31 AM [facility] 81 mg Given 05/15/2023 8:52 AM [facility] 81 mg Given 05/14/2023 8:23 AM [facility] 81 mg camphor-menthoL (SARNA) 0.5-0.5 % lotion topical, Every 6 hours PRN, itching, Starting on Tue05/08/23 at 0435, Apply to affected area: other Given 05/08/2023 5:35 AM [facility] Carrier Fluids for Secondary Infusion - 0.9% Sodium Chloride 30 mL, intravenous, As needed, For priming tubing and/or flushing, Starting on Tue05/02/23 at 2126, 0-250ml/hr to flush line after IV infusions when no maintenance IV ordered. Infuse 30mL at the same rate as the secondary infusion. Run as primary IV, not intended for KVO Given 05/03/2023 8:55 AM [facility] 30 mL carvediloL (COREG) tablet 12.5 mg 12.5 mg, oral, 2 times daily, First dose (after last modification) on Tue05/13/23 at 0900 Given 05/16/2023 9:31 AM [facility] 12.5 mg Given 05/15/2023 9:17 PM [facility] 12.5 mg Given 05/15/2023 8:53 AM [facility] 12.5 mg gabapentin (NEURONTIN) capsule 300 mg 300 mg, oral, 3 times daily, First dose on Tue05/08/23 at 1015 Given 05/16/2023 4:14 PM [facility] 300 mg Given 05/16/2023 9:31 AM [facility] 300 mg Given 05/15/2023 9:17 PM [facility] 300 mg heparin 5,000 unit/mL injection 5,000 Units 5,000 Units, subcutaneous, Every 8 hours scheduled, First dose on Tue05/03/23 at 1400, Indications: Deep Vein Thrombosis PreventionIndications:Deep Vein Thrombosis Prevention Given 05/16/2023 1:38 PM [facility] 5,000 Units Left Lower Abdomen Given 05/16/2023 6:19 AM [facility] 5,000 Units L eft Upper Arm Given 05/15/2023 9:17 PM [facility] 5,000 Units L eft Upper Arm heparin in 0.9% sodium chloride 2,000 unit/1,000 mL (2 unit/mL) infusion (premix) As needed, Starting on Tue05/02/23 at 1755, Intra-Op Given 05/02/2023 5:55 PM [facility] 1,000 mL hydrOXYzine (ATARAX) tablet 25 mg 25 mg, oral, 4 times daily PRN, anxiety, Starting on Tue05/12/23 at 1931 Given 05/15/2023 9:17 PM [facility] 25 mg Given 05/13/2023 9:26 PM [facility] 25 mg Given 05/13/2023 5:18 AM [facility] 25 mg ioversoL (OPTIRAY 320) injection As needed, Starting on Tue05/02/23 at 1905, Intra-Op Given 05/02/2023 7:05 PM [facility] 39 mL Left Groin lidocaine (ASPERCREME) 4 % patch 2 patch 2 patch, transdermal, Administer over 12 Hours, Daily, First dose (after last modification) on Tue05/13/23 at 2030, Apply to affected area: neck Medication Applied 05/15/2023 9:16 PM [facility] 1 patch Back Medication Applied 05/14/2023 9:27 PM [facility] 2 patches Other (Comment) Medication Applied 05/13/2023 9:25 PM [facility] 2 patches Back methocarbamoL (ROBAXIN) tablet 750 mg 750 mg, oral, 3 times daily, First dose (after last modification) on Tue05/15/23 at 0900 Given 05/16/2023 4:14 PM [facility] 750 mg Given 05/16/2023 9:31 AM [facility] C[facility]TER 750 mg Given 05/15/2023 9:17 PM [facility] 750 mg nitroglycerin injection 100 mcg/mL in D5W 10 mL As needed, Starting on Tue05/02/23 at 1827, Intra-Op Given 05/02/2023 6:27 PM [facility] 200 mcg Left Arm ondansetron ODT (ZOFRAN-ODT) disintegrating tablet 4 mg 4 mg, oral, Every 4 hours PRN, nausea, Starting on 05/16/23 at 1034 oxyCODONE (ROXICODONE) tablet 10 mg 10 mg, oral, Every 3 hours PRN, 1st line for pain, Starting on Tue05/08/23 at 1200, Indications: PainIndications:Pain Given 05/16/2023 12:08 PM [facility] 10 mg Given 05/16/2023 6:25 AM [facility] 10 mg Given 05/15/2023 9:17 PM [facility] 10 mg polyethylene glycol (MIRALAX) packet 17 g 17 g, oral, 2 times daily, First dose (after last modification) on Tue05/13/23 at 2100, Hold for diarrhea, Indications: constipationIndications:constipation Given 05/16/2023 9:31 AM [facility] 17 g Given 05/14/2023 8:22 AM [facility] 17 g QUEtiapine (SEROquel) tablet 50 mg 50 mg, oral, Nightly, First dose (after last modification) on Tue05/16/23 at 2100 senna-docusate (PERICOLACE) 8.6-50 mg per tablet 2 tablet 2 tablet, oral, 2 times daily, First dose (after last modification) on Tue05/13/23 at 2100 Given 05/15/2023 8:52 AM [facility] 2 tablets Given 05/14/2023 8:23 AM [facility] 2 tablets sodium chloride (OCEAN) 0.65 % nasal spray 2 spray 2 spray, each nostril, Every 2 hours while awake, First dose (after last modification) on Catarina 05/05/23 at 1600 Given 05/15/2023 9:58 PM [facility] 2 sprays Given 05/15/2023 8:11 PM [facility] 2 sprays Given 05/15/2023 8:55 AM [facility] C[facility] 2 sprays sodium chloride 0.9% irrigation As needed, Starting on Tue05/02/23 at 1755, Intra-Op Given 05/02/2023 5:55 PM [facility] 1,000 mL tamsulosin (FLOMAX) extended release capsule 0.4 mg 0.4 mg, oral, Daily, First dose (after last modification) on Tue05/11/23 at 0530, Do not crush, chew, cut, dissolve, open or otherwise manipulate tablet/capsule. Given 05/16/2023 9:31 AM [facility] 0.4 mg Given 05/15/2023 8:52 AM [facility] 0.4 mg Given 05/14/2023 8:23 AM [facility] 0.4 mg verapamiL (ISOPTIN) injection Administer over 2 Minutes, As needed, Starting on 05/02/23 at 1827, Intra-Op Given 05/02/2023 6:27 PM [facility] 5 mg Left Arm documented in this encounter Discontinued Medications Medication Sig Discontinue Reason Start Date End Da te QUEtiapine (SEROquel) 25 mg tablet Take 2 tablets (50 mg total) by mouth nightly Stop Taking at Discharge 05/16/2023 05/16/2023 documented as of this encounter Active and Recently Administered Medications Times are shown in [facility]. Scheduled Medication Order 05/14/2023 05/15/2023 05/16/2023 acetaminophen [...] Reason: Patient/family refused)0855 (Given - Provider: Db Harrsion RN)1000 (Not Given - Provider: Db Harrison [...] Patient/family refused)0918 (Not Given - Provider: Nataliya nEglish RN - Reason: Patient/family refused)1124 (Not Given [...] puff, inhalation, Every 4 hours PRN (respiratory therapy technician), wheezing, Starting on Catarina 05/05/23 at 1249 [...] 05/01/2023 documented in this encounter Care Teams Thermodynamics Professor Relationship Specialty Start Date End Date Unknown, Notinfile PCP - General 04/30/23 06/05/23 documented as of this encounter
== END 2024-05-23 23:18 | disposition short-term general hospital (02) ==
PROVIDERS: Emergency Provider Physician Assistant; PCP Physician Assistant Medical
DX: I97.89 Other postprocedural complications and disorders of the circulatory system, not elsewhere classified (principal); I71.00 Dissection of unspecified site of aorta; Z87.442 Personal history of urinary calculi
CPT/HCPCS: 36415; 71275; 74174; 80053; 81001; 83605; 83690; 83735; 85025; 96374; 96375; 96376; 99285; A9270; J1171; J2270; J2405; J7030; Q9967

== ENCOUNTER 2024-07-03 09:30 | Emergency (ER) | payer OTHER, SELFPAY ==
--- NOTE | ~2024-07-03 | CT_ITS ---
EXAMINATION: CTA chest abdomen pelvis DATE: 07/03/2024 10:49 INDICATION: Left posterior chest pain, left flank and lower quadrant pain, nausea and cough. TECHNIQUE: Computed tomographic angiography (CTA) of the chest, abdomen and pelvis was performed with 100 cc of Omnipaque-350 intravenous contrast. Additional 3D reconstructions utilizing rotating maxim um intensity projection (MIP) were performed. Automated exposure control and iterative reconstruction technique were employed. The dose-length product was 1052.57 mGy-cm. COMPARISON: 05/22/2024 FINDINGS: Chest: Mild dependent atelectasis in the right lower lobe. No suspicious pulmonary nodules, pneumonia, pulmo nary edema or pleural effusion. Heart size is normal. No pericardial effusion. No pathologically enla rged abdominal or pelvic lymphadenopathy. Bones are unremarkable. There is endoluminal stenting of the thoracic aorta which begins just within the takeoffs of the left internal jugular and left subclavian arteries. There is also stenting of the proximal left subclavia n artery. The stented descending thoracic aorta measures up to 4.3 cm maximal diameter. Abdomen and pelvis: The endoluminal stenting stents distally to the infrarenal aorta 3.5 cm proximal to the aortic bifurc ation. 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 This appears to exert some mass effect on the stent which appears mildly compressed in the medial to lateral dimension. The endoleak suppli es the celiac axis as well as spinal arteries at the level of L1.. There is a small dissection along the left posterior margin of the aorta distal to the stent with the lower lumbar arteries arising fro m contrast-filled false lumen. The dissection extends to the origin of the left common iliac artery. The bilateral iliac arteries are otherwise unremarkable. Diffuse hepatic steatosis. 2.3 cm hemangioma with peripheral discontiguous puddling of contrast Gallb ladder, spleen, pancreas, bilateral adrenal glands and right kidney are normal. 4 mm low-attenuation left renal cyst. Symmetric bilateral renal enhancement. Bowels including the appendix are normal. Rafa dder is normal. No free intraperitoneal gas or fluid. No pathologically enlarged abdominal or pelvic lymphadenopathy. Chronic appearing mild likely physiologic anterior wedging at T11-L1. IMPRESSION: 1. 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 2. Unchanged infrarenal aortic dissection at the distal margin of the stent which extends to the orig in of the left common carotid iliac artery. Reviewed, dictated and finalized at location A. ARATIVE SOCIOLOGY PROFESSOR IMPRESSION: 1. Thoracic and aortic endoluminal stent grafts with no significant change in a type II endoleak at the level of residual 4.8 x 4.5 cm fusiform aneurysm of th e upper abdominal aorta with the endplate contiguous with the celiac axis and L 1 spinal arteries. 2. Unchanged infrarenal aortic dissection at the distal margin of the stent whi ch extends to the origin of the left common carotid iliac artery.
[2024-07-03 09:30] VITALS: BP 137/82; PULSE 76; RESP 18; TEMP 36.9; O2SAT 98
--- NOTE | 2024-07-03 09:33 | ED_ITS ---
HPI - URI/Sore Throat General Chief Complaint: Abdominal Pain Stated Complaint: abd pain Time Seen by Provider: 07/03/24 09:33 History of Present Illness HPI Narrative: error Related Data Home Medications ?Medication ?Instructions ?Recorded ?Confirmed ?Last Taken ?Type amitriptyline 50 mg tablet mg 07/03/24 Unknown History amlodipine 10 mg tablet mg 07/03/24 Unknown History hydralazine 50 mg tablet mg 07/03/24 Unknown History labetalol 200 mg tablet mg 07/03/24 Unknown History lamotrigine 25 mg tablet mg 07/03/24 Unknown History methocarbamol 750 mg tablet mg 07/03/24 Unknown History pravastatin 10 mg tablet mg 07/03/24 Unknown History pregabalin 100 mg capsule mg 07/03/24 Unknown History quetiapine 50 mg tablet mg 07/03/24 Unknown History Allergies Allergy/AdvReac Type Severity Reaction Status Date / Time lisinopril Allergy Severe Swelling Verified 07/03/24 09:33 of Lip/Tongue/Throat amoxicillin AdvReac Rash Verified 07/03/24 09:33 [facility] Past Medical History Medical History (Updated 07/03/24 @ 09:48 by Narciso Pratt MD) History of kidney stones History of aortic dissection Social History Social History (Updated 05/23/24 @ 11:45 by Angelica Michael PA-C) Substance use: current Substance use type: marijuana Discharge Plan Discharge Clinical Impression: Well adult Patient Disposition: Home, Self-Care Condition: Stable Instructions: Antibiotic Form Patient Language: Greenlandic Follow-up/Referrals: Mert,SANCHEZ Rollins [Primary Care Provider] -
--- NOTE | 2024-07-03 09:45 | PC.NURSE ---
covid culture sent to lab
--- NOTE | 2024-07-03 09:48 | ED_ITS ---
HPI - Abdominal Pain General Chief Complaint: Abdominal Pain Stated Complaint: abd pain Time Seen by Provider: 07/03/24 09:33 Source: patient Mode of arrival: ambulatory Limitations: no limitations History of Present Illness HPI narrative: patient is a 34-year-old male with multiple medical problems in the past with 2 aortic aneurysms/dissections and repair as well as multiple kidney stones. He is here with left lower quadrant abdominal pain and left lower back pain. He is generally not feeling well over the past 2 days. 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) Onset (ago): day(s) (2) Pain Consistency: constant Location: LLQ Severity: moderate Pain scale (0-10): 8 Quality: sharp Radiation: back ( left lower back) Migration to: no migration Exacerbating factors: nothing Relieving factors: nothing Context: confirms other ( exposure to influenza a) Associated symptoms: anorexia Treatments prior to arrival: NSAIDs and prescription analgesics Related Data Home Medications ?Medication ?Instructions ?Recorded ?Confirmed ?Last Taken ?Type amitriptyline 50 mg tablet mg 07/03/24 Unknown History amlodipine 10 mg tablet mg 07/03/24 Unknown History hydralazine 50 mg tablet mg 07/03/24 Unknown History labetalol 200 mg tablet mg 07/03/24 Unknown History lamotrigine 25 mg tablet mg 07/03/24 Unknown History methocarbamol 750 mg tablet mg 07/03/24 Unknown History pravastatin 10 mg tablet mg 07/03/24 Unknown History pregabalin 100 mg capsule mg 07/03/24 Unknown History quetiapine 50 mg tablet mg 07/03/24 Unknown History Allergies Allergy/AdvReac Type Severity Reaction Status Date / Time lisinopril Allergy Severe Swelling Verified 07/03/24 09:33 of Lip/Tongue/Throat amoxicillin AdvReac Rash Verified 07/03/24 09:33 Review of Systems 2 Review of Systems: All systems reviewed & are unremarkable except as noted in HPI and below Constitutional: Constitutional: Reports no additional constitutional complaints Eyes: Eyes: Reports no additional eye complaints ENT: Reports system reviewed and no additional complaints, except as documented Cardiovascular: Cardiovascular: Reports no additional cardiovascular complaints Respiratory: Respiratory: Reports no additional respiratory complaints Gastrointestinal: Gastrointestinal: Reports no additional gastrointestinal complaints Genitourinary: Genitourinary: Reports no additional male genitourinary complaints Musculoskeletal: Musculoskeletal: Reports no additional musculoskeletal complaints Integumentary/Breasts: Skin/Breast: Reports system reviewed and no additional complaints, except as docu Neurologic: Reports system reviewed and no additional complaints, except as documented Psychiatric: Psychiatric: Reports no additional psychiatric complaints Endocrine: Endocrine: Reports no additional endocrine complaints Hematologic/Lymphatic: Hematologic/Lymphatic: Reports no additional hematologic/lymphatic complaints Allergic/Immunologic: Allergic/Immunologic: Reports no additional allergic/immunologic complaints [facility] Past Medical History Medical History History of kidney stones History of aortic dissection Social History Social History Substance use: current Substance use type: marijuana Exam 2 Const: General: ill appearing Nutritional Appearance: well nourished O rientation/consciousness: patient oriented x3 Limitations: no limitations HENMT: Head: normal to inspection Ears: external ears normal F shankar/Nose/Sinus: Normal external nose present Eyes: Conjunctivae: conjunctivae normal Pupils: Equal, round and reactive pupils present EOM: EOMs intact bilaterally Neck: Neck: normal visual inspection Chest: Chest palpation & inspection: normal inspection of the chest Resp: Effort & Inspection: normal respiratory effort and not labored A uscultation: clear to auscultation bilaterally and no crackles Cardio: Rate: regular rate Rhythm: regular rhythm Heart sounds: no murmurs GI: Inspection: non-distended GI Palp: Yes Soft to palpation and No Tenderness to palpation present (GI) Auscultation: normal bowel sounds : General: Yes bladder normal to palpation Back/Spine/Pelvis: Back: no CVA tenderness Skin: General skin exam: normal color Rashes: no rashes Wounds: no wounds Neuro: General: patient oriented x3 Cranial nerves: Yes Nystagmus not present Speech: normal speech Extrem: General: normal to inspection Psych: Mental Status: mental status grossly normal Affect: normal affect Attitude: cooperative Course Vital Signs Vital signs: Vital Signs Temperature 36.9 C 07/03/24 09:30 Pulse Rate 76 07/03/24 09:30 Respiratory Rate 18 07/03/24 09:30 Blood Pressure 137/82 07/03/24 09:30 Pulse Oximetry 98 07/03/24 09:30 Oxygen Delivery Room Air 07/03/24 09:30 Temperature 36.9 C 07/03/24 09:30 Pulse Rate 76 07/03/24 09:30 Respiratory Rate 18 07/03/24 09:30 Blood Pressure 137/82 07/03/24 09:30 Pulse Oximetry 98 07/03/24 09:30 Oxygen Delivery Room Air 07/03/24 09:30 MDM - Abdominal Pain MDM Narrative Medical decision making narrative: patient is a 34-year-old male with left lower quadrant abdominal pain that radiates from the back on the left lower back. Due to his significant aneurysm/dissection history we will do an abdominal workup as well as a review of his aneurysm areas. Lab Data Attestation: I reviewed the patient's lab results. 07/03/24 09:59 07/03/24 09:59 Labs: Lab Results 07/03/24 07/03/24 07/03/24 Range/Units 09:33 09:59 11:23 WBC 12.9 H (4.8-10.8) K/mm3 RBC 4.48 L (4.70-6.10) M/mm3 Hgb 13.4 L (14.0-18.0) g/dL Hct 41.3 (40.0-54.0) % MCV 92.2 (78.0-102.0) fL MCH 29.9 (27.0-31.0) pg MCHC 32.4 (32-36) g/dL RDW 12.6 (11.6-14.4) % Plt Count 307 (150-420) K/mm3 MPV 8.3 L (8.7-11.0) fl Immature Gran % (Auto) 0.5 H (0.0-0.0) % Neut % (Auto) 83.9 H (50.0-70.0) % Lymph % (Auto) 7.3 L (18.0-42.0) % [place] % (Auto) 7.4 (2.0-11.0) % Eos % (Auto) 0.6 L (1.0-6.0) % Baso % (Auto) 0.3 (0.0-1.0) % Lymph # (Auto) 0.94 L (1.10-4.50) K/mm3 [place] # (Auto) 0.95 H (0.10-0.90) K/mm3 Eos # (Auto) 0.08 (0.02-0.50) K/mm3 Baso # (Auto) 0.04 (0.00-0.10) K/mm3 Abs Immat Gran (auto) 0.06 H (0.00-0.00) K/mm3 Absolute Neuts (auto) 10.80 H (1.70-7.20) K/mm3 Absolute Nucleated RBC 0.00 (0.00-0.00) K/mm3 Nucleated RBC % 0.0 (0-0.0) % PT 11.5 (9.50-12.1) Seconds INR 1.0 APTT 31.3 H (23.9-30.70) Sec Sodium 137 (136-145) mmol/L Potassium 3.9 (3.5-5.1) mmol/L Chloride 102 (98-108) mmol/L Carbon Dioxide 22 (21-32) mmol/L Anion Gap 13 H (4-12) mmol/L BUN 27 H (7-18) mg/dL Creatinine 1.15 (0.70-1.30) mg/dL Estim Creat Clear Calc Not Reportable Estimated GFR > 60 (59 - ) Glucose 92 (70-99) mg/dL Calculated Osmolality 289 (285-295) mOsm/kg Lactic Acid 0.9 (0.4-2.0) mmol/L Calcium 9.2 (8.5-10.1) mg/dL Total Bilirubin 1.2 H (0.00-1.00) mg/dL AST < 10 L (15-37) U/L ALT 16 (16-63) U/L Alkaline Phosphatase 104 (46-116) U/L Total Protein 8.0 (6.4-8.2) g/dL Albumin 4.2 (3.4-5.0) g/dL Lipase 20 (16-77) U/L Urine Color Yellow (Yellow) Urine Appearance Clear (Clear) Urine pH 5.0 (5.0-8.0) Ur Specific [place] 1.010 (1.010-1.020) Urine Protein Negative (Negative) Urine Glucose (UA) Negative (Negative) Urine Ketones Trace H (Negative) Ur Blood (Man) Negative (Negative) Urine Nitrate Negative (Negative) Urine Bilirubin Negative (Negative) Urine Urobilinogen 0.2 (0.2-1.0) mg/dL Leukocyte Esterase Rfl Negative (Negative) SHARON/UL Influenza A (RT-PCR) Positive A (Negative) Influenza B (RT-PCR) Negative (Negative) RSV (RT-PCR) Negative (Negative) SARS-CoV-2 RNA (RT-PCR) Negative (Negative) Imaging Data Attestation: I personally reviewed and interpreted this imaging study as follows: Radiologist's impression: ITS Impressions Chest/Abdomen/Pelvis CTA 07/03/24 10:58 IMPRESSION: 1. Thoracic and aortic endoluminal stent grafts with no significant change in a type II endoleak at the level of residual 4.8 x 4.5 cm fusiform aneurysm of the upper abdominal aorta with the endplate contiguous with the celiac axis and L1 spinal arteries. 2. Unchanged infrarenal aortic dissection at the distal margin of the stent which extends to the origin of the left common carotid iliac artery. Discharge Plan Discharge Clinical Impression: Influenza A Abdominal pain Qualifiers: Abdominal location: left lower quadrant Qualified Code(s): R10.32 - Left lower quadrant pain Patient Disposition: Home, Self-Care Condition: Stable Instructions: Influenza (DC), Abdominal Pain (ED) Patient Language: Guamanian Prescriptions: New oxycodone-acetaminophen [Percocet] 10-325 mg tablet 1 tablet PO Q6H PRN (Reason: pain) Qty: 20 0RF No Action labetalol 200 mg tablet amitriptyline 50 mg tablet lamotrigine 25 mg tablet methocarbamol 750 mg tablet pravastatin 10 mg tablet amlodipine 10 mg tablet hydralazine 50 mg tablet pregabalin 100 mg capsule quetiapine 50 mg tablet Follow-up/Referrals: Mert,SANCHEZ Rollins [Primary Care Provider] - Time of Disposition: 11:47
[2024-07-03] MEDS: SODIUM CHLORIDE 0.9% IV 1,000 ML 999 ML IV CONT (09:55)
[2024-07-03] MEDS: ONDANSETRON INJ 4 MG/2 ML VIAL IV PUSH (09:56)
[2024-07-03] MEDS: HYDROmorphone HCL INJ (*CRX) 2 MG/ML VIAL 0.5 MG IV PUSH (09:59)
--- OUTSIDE RECORDS SUMMARY | 2024-07-03 10:00 | XMS_ITS | Encounter Summary ---
Author Organization [facility] Address [address] [place] [address] Phone Care Team Providers Care Real Estate Agent Name Role Phone Leo Manzano MD Unavailable [phone] Carl Strickland MD Primary Care Provider Ronak Painting Primary Care Provider [phone] Encounter Details Date Type Department Care Team (Latest Contact Info) Description 11/10/2023 Orders Only [facility] Scanning, Provider Social History Tobacco Use Types Packs/Day Years Used Date Smoking Tobacco: Never Smokeless Tobacco: Never Alcohol Use Standard Drinks/Week Comments Not Currently 0 (1 standard drink = 0.6 oz pur e alcohol) [facility] Utilities Answer Date Recorded In the past 12 months has [employer], gas, oil, or water [employer] threatened to shut off services in your home? Patient declined 10/02/2023 Social Connection and Isolation Panel [NHANES] A nswer Date Recorded In a typical week, how many times do you talk on the phone with family, friends, or neighbors? Patient declined 10/02/2023 How often do you get togethe r with friends or relatives? Patient declined 10/02/2023 How often do you attend buddhism or cheondoism serv ices? 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 Gender Identity Not on file Sexual Orientation Straight 06/12/2023 11 :43 PM DEBUG TECHNICIAN documented as of this encounter Progress [...] Pain Care Plan Chronic Care Management No change(06/20 7:42 AM DEBUG TECHNICIAN) No Rita Landa, RN Note: Problem: [...] on filedocumented in this encounter Care Teams Real Estate Agent Relationship Specialty Start Date End Date Carl Strickland MD [address] [facility] [address] [place] [address] PCP - General Internal Medicine 06/06/23 06/13/24 Ronak Painting PA [address] [place] [address] PCP - General Physician Hot Room Attendant 06/14/24 Leo Manzano MD [id number] [place] [address] Surgeon Vascular Surgery 05/16/23 documented as of this encounter
--- OUTSIDE RECORDS SUMMARY | 2024-07-03 10:00 | XMS_ITS | Clinical Summary ---
Author Organization [facility] Address [address] [place] [address] Care Team Providers Care Head Athletic Trainer/Strength Coach Name Role Phone Leo Manzano MD Unavailable [phone] Ronak Painting Primary Care Provider [phone] Allergies Active Allergy Reactions Criticality Noted Date [...] nausea or vomiting 10 tablet 023 Active Additional Information Patient not taking.Informant: Mother, Reported on 06/27/2024 senna-docusate (PERICOLACE) 8.6-50 mg Take 2 tablets by mouth 2 (two) times a day To prevent constipation 40 tablet 023 Active hydrALAZINE (APRESOLINE) 50 mg tablet Take 1 tablet (50 mg total) by mouth 3 (three) times a day 90 tablet 11 024 Active ergocalciferol (VITAMIN D) 50,000 unit capsule Take 1 capsule (50,000 Units total) by mouth once a week for 7 doses 7 capsule Active hydrocortisone (ANUSOL-HC) 2.5 % rectal cream Insert into the rectum 2 (two) times a day as needed for hemorrhoids 30 g Active Additional Information Patient not taking.Informant: Mother, Reported on 06/27/2024 acetaminophen (TYLENOL) 500 mg tablet Take 2 [...] (Bladder spasms/discomfo rt) 30 tablet 3 Active Additional Information Patient not taking.Reported on 06/27/2024 oxyBUTYnin (DITROPAN) 5 mg tabletIndications :Ureteral stent discomfort Take 1 tablet (5 mg total) by mouth 3 (three) times a day as needed (Bladder spasms/discomfo rt) 30 tablet 3 Active Additional Information Patient not taking.Reported on 06/27/2024 labetaloL (NORMODYNE,TRANDA TE) 200 mg tablet Take [...] total) by mouth daily 30 tablet Active Additional Information Patient not taking.Reported on 06/27/2024 pravastatin (PRAVACHOL) 10 mg tablet 1 tablet (10 mg total) Active QUEtiapine (SEROquel) 50 mg tablet Take 1 tablet (50 mg total) by mouth nightly 30 tablet 1 Active methocarbamoL (ROBAXIN) 500 mg tablet Take 2 tablets (1,000 mg total) by mouth 3 (three) times a day 180 tablet Active polyethylene glycol (MIRALAX) 17 gram/dose bulk powder Take 17 g by mouth daily Active Additional Information Patient not taking.Reported on 06/27/2024 oxyCODONE (ROXICODONE) 10 mg tabletIndications :Pain Take 1 tablet (10 mg total) by mouth every 3 (three) hours as needed for pain 60 tablet Active Additional Information Patient not taking.Reported on 06/27/2024 amitriptyline (ELAVIL) 25 mg tablet Take 1 tablet (25 mg total) by mouth nightly Active amLODIPine (NORVASC) 10 mg tablet Take 0.5 tablets (5 mg total) by mouth daily 15 tablet 11 025 2025 Active pregabalin (LYRICA) 100 mg capsule Take 1 capsule (100 mg total) by mouth 3 (three) times a day 90 capsule 2 025 2024 Active amLODIPine (NORVASC) 10 mg tablet Take 1 tablet (10 mg total) by mouth daily 30 tablet 11 024 2024 Discontinued dicyclomine (BENTYL) 20 mg tablet Take 1 tablet (20 mg total) by mouth every 6 (six) hours as needed (For abdominal pain) 120 tablet 024 2024 Discontinued(T herapy completed) amitriptyline (ELAVIL) 50 mg tablet Take 1 tablet (50 mg total) by mouth nightly 30 tablet 11 024 2024 Discontinued(D uplicate order) pregabalin (LYRICA) 100 mg capsule Take 1 capsule (100 mg total) by mouth 3 (three) times a day 90 capsule 024 2024 Discontinued(R eorder) Active Problems Problem Noted Date Diagnosed Date [...] line Assessment & Plan (06/24/2023 12:04 PM MERCANTILE AGENT): - CT without discitis or osteomyelitis on 06/13 - MRI 06/13 also without discitis or osteomyelitis - no narcotic pain medications are required from vascular surgery perspective - Consult pain management team Pseudoaneurysm following procedure ([facility]) Assessment & Plan (06/24/2023 10:40 AM MERCANTILE AGENT): - s/p vascular access - Q4 N/V checks - no current surgical intervention - no activity restrictions, OOB/ ambulate Infrarenal abdominal aortic aneurysm, without ru pture 06/13/2023 Assessment & Plan (06/24/2023 10:41 AM MERCANTILE AGENT): s/p TEVAR on 06/05/23 (graft terminates above celiac take off) 06/11 discharged home; 06/13 Re admitted for worsening back pain, HTN, and subjective fever/chills. - CT 06/13 shows no change in aneurysm, no stent migration, no increase in false lumen perfusion - non operative Polysubstance abuse ([facility]) 06/10/2023 Moderate malnutrition ([facility]) 06/09/2023 Dissection of abdominal aorta ([facility]) 06/03/19 Urinary retention 05/16/2023 Assessment & Plan (05/16/2023 10:44 AM MERCANTILE AGENT): Patient with urinary retention requiring straight cath X1 05/15, now voiding without any issues. - Continue Flomax. - Patient requests urology follow up, referral placed. Epistaxis 05/13/2023 Assessment & Plan (05/13/2023 12:42 PM MERCANTILE AGENT): Significant nose bleed in the OR requiring intra-op ENT c/s. DL performed, no other sources of bleeding visualized. ACT post protamine 149. - ENT following - ocean spray tid - no other s/s bleeding Pneumonia 05/13/2023 Assessment & Plan (05/13/2023 12:43 PM MERCANTILE AGENT): Tracheal aspirate 05/05 with Haemophilus Inf - susana(05/04 - 05/10), linezolid (05/04-05/06) HTN (hypertension) 05/13/2023 Assessment & Plan (05/28/2024 8:41 AM MERCANTILE AGENT): BP well controlled. - continue home amlodipine [...] needed Assessment & Plan (06/24/2023 10:41 AM MERCANTILE AGENT): Difficult to control Htn. Dr. Abarca following - Continue amlodipine, lisinopril, coreg, hydralazine - SBP goal 120-140 - VS q 4 hrs and prn Assessment & Plan (06/21/2023 7:57 AM MERCANTILE AGENT): BP stable at present. Recommend discontinuation of the diltiazem and continue amlodipine (as opposed to giving two calcium channel blockers) Assessment & Plan (06/20/2023 8:33 PM MERCANTILE AGENT): BP improving. Recommend continue medications and follow up bp, except recommend discontinuation of the diltiazem as he is already on a calcium channel louie, amlodipine Assessment & Plan (06/18/2023 7:59 AM MERCANTILE AGENT): Patient with continued hypertension. Blood pressure in the right arm levels are improved now in the 130s and 140s. Recommend consideration for adjustment of medications as follows. 1. Add spironolactone 25 mg a day 2. Consider adding clonidine 0.1 mg twice a day Assessment & Plan (06/11/2023 7:50 AM MERCANTILE AGENT): Patient hypertensive. Recommend resuming hydralazine 25 mg 3 times a day. Continue the amlodipine and carvedilol. Follow-up blood pressure. The patient should have follow-up blood pressure when he leaves the hospital as well. Assessment & Plan (06/10/2023 3:48 PM MERCANTILE AGENT): Goal systolic BP 140-180 for one month [...] status Assessment & Plan (06/09/2023 10:54 AM MERCANTILE AGENT): Blood pressure well controlled at present. Medicines are being adjusted. Currently on carvedilol and hydralazine. A want to transition to amlodipine 5 mg a day to wean hydralazine, as tolerated, as 3 times a day medication can be difficult long-term Assessment & Plan (05/13/2023 12:49 PM MERCANTILE AGENT): Hx of uncontrolled HTN, non-compliant to medications. [...] time Assessment & Plan (06/11/2023 7:50 AM MERCANTILE AGENT): Clinically stable. Renal function stable. Blood pressure improved We will recommend genetic testing as an outpatient Assessment & Plan (06/10/2023 3:48 PM MERCANTILE AGENT): Presents with abdominal pain and concern for progression of dissection on CT - 06/05/23: OR s/p TEVAR extension and dissection stent placement - BP management per HTN - pain control - Q4 NV checks, Q2 VS - lovenox DVT ppx - He will f/u with Dr. Abarca as outpatient for genetics testing. Assessment & Plan (06/09/2023 10:54 AM MERCANTILE AGENT): Clinically stable. Renal function stable. Blood pressure improved We will recommend genetic testing as an outpatient Assessment & Plan (05/16/2023 10:45 AM MERCANTILE AGENT): Patient presented on 05/01 with acute Chest [...] 05/01/2023 Assessment & Plan (05/29/2024 7:45 AM MERCANTILE AGENT): 34 y/o M with hx of symptomatic Type B aortic dissection requiring TBE and subsequent extension with TEVAR/dissection stents presents as OSH transfer for significant abdominal pain. No concern for mesenteric ischemia. - c/w impulse control - regular diet - transitioned to oral anti-hypertensive - pain management following. 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 Dilaudid discontinued 05/28. Pain signed off. Assessment & Plan (10/03/2023 2:00 PM CDT): Follows with Dr Abarca Cont antihypertensives Assessment & Plan (06/18/2023 8:00 AM MERCANTILE AGENT): Aortic imaging stable on recent CT scan. Continue blood pressure control. Assessment & Plan (05/02/2023 2:02 PM MERCANTILE AGENT): 32y/o male with uncontrolled HTN who presented to an OSH ER with acute onset shortness of breath, chest pain and back pain. 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 He was transferred to [facility] for further evaluation and treatment. Here, he [...] All feel these findings not to be screening representative of a type a dissection, therefore [...] Encounters Date Type Department Care Team Description 07/02/2024 Telephone [facility] Critical access hospital1 [facility] [address] [place] [address] Adrianne Adams MD PhD PMC Preprocedure 06/27/2024 1:00 PM MERCANTILE AGENT Office Visit [facility] Nephrology Critical access hospital1 [facility] 5th [place] [address] [place] [address] ANGI (acute kidney injury) (HCC) (Primary Dx) 06/20/2024 7:27 AM MERCANTILE AGENT - 06/20/2024 11:59 PM MERCANTILE AGENT Hospital Encounter [facility] [address] [facility] [address] [place] [address] Jeremie Macias MD Yoshida, [place], MD PhD Sacroiliitis (HCC) (Primary Dx); Spondylosis of lumbar region without myelopathy or radiculopathy Discharge Disposition: Discharge to home or self care 06/08/2024 Telephone [facility] Cardiology [address] [facility] 8th [place] [address] [place] [phone] Joaquín Abarca MD overdue orders 05/25/[address] [phone] Essie Singh, BRIA 05/23/2024 7:45 PM MERCANTILE AGENT - 05/29/2024 10:36 AM MERCANTILE AGENT Hospital Encounter [address] [phone] Gonzalez [facility], Leo Salazar MD Abdominal pain (Primary Dx) Discharge Disposition: Discharge to home or self care 05/21/2024 4:17 PM MERCANTILE AGENT - 05/21/2024 8:27 PM MERCANTILE AGENT Emergency [facility] [address] [place] [phone] Marcus Amaya MD Nausea and vomiting, unspecified vomiting type (Primary Dx) Discharge Disposition: Discharge to home or self care 05/19/2024 9:40 PM MERCANTILE AGENT - 05/20/2024 1:34 AM MERCANTILE AGENT Emergency [facility] [address] [place] [phone] Casandra Lock MD Renz, Nicholas Robert, MD Abdominal pain (Primary Dx); Chronic bilateral low back pain without sciatica; Abdominal aortic aneurysm dissection (HCC) Discharge Disposition: Discharge to home or self care 05/16/2024 2:39 PM MERCANTILE AGENT - 05/16/2024 11:59 PM MERCANTILE AGENT Hospital Encounter [facility] [address] [facility] [address] [place] [address] Adrianne Adams MD PhD Sacroiliitis (HCC) (Primary Dx) Discharge Disposition: Discharge to home or self care 04/24/2024 Orders Only [facility] Nephrology [address] [facility] 5[address] [place] [address] [place] [address] Miguel Dominguez MD ANGI (acute kidney injury) (HCC) (Primary Dx); Primary hypertension; Anemia, unspecified type; Screening for hematuria or proteinuria from Last 3 Months Surgical History Surgery [...] you attend chur ch or catholic services? Never 05/24/2024 Do you belong to [...] you have a drink containing alcohol? Never 06/20/2024 Q2: How many drinks containi ng alcohol do you have on a typical day when you are drinking? Patient does not drink Q3: How often do you have si x or more drinks on one occasion? Never 06/20/2024 Overall Financial Resource Strain (CARDIA) Answe r [...] a half-way (including now)? Patient declined 10/02/2023 Housing Stability [...] any time in the past 12 m [facility], were you homeless or living in a half-way (including now)? No 05/24/2024 Personal Safety Answer Date Recorded Have you ever been in or are you currently in a harmful physical or emotional relationship or is someone making you feel afraid or unsafe? Denies 05/23/2024 Sex and Gender Information Value Date Recorded Sex Assigned at Not on file Legal Sex Male 3:42 AM MERCANTILE AGENT Gender Identity Not on file Sexual Orientation Straight 06/12/2023 11 :43 PM MERCANTILE AGENT Obstetrics History Last Filed Vital Signs Vital Sign Reading Time Taken Comments Blood Pressure 101/67 06/27/2024 12:49 PM MERCANTILE AGENT Pulse 83 06/27/2024 12:49 PM MERCANTILE AGENT Temperature 36.6 ??C (97.8 ??F) 06/20/2024 7:35 AM CS T Respiratory Rate 15 06/20/2024 8:49 AM MERCANTILE AGENT Oxygen Saturation 96% 06/20/2024 8:49 AM MERCANTILE AGENT Inhaled Oxygen Concentration - - Weight 95.9 kg (211 lb 6.4 oz) 06/27/2024 12:49 PM MERCANTILE AGENT Height 175.3 cm (5' 9 ) 06/27/2024 12:49 PM MERCANTILE AGENT Body Mass Index 31.22 06/27/2024 12:49 PM MERCANTILE AGENT Plan of Treatment Health Maintenance Due Date [...] Chronic Care Management No change(06/20 7:42 AM MERCANTILE AGENT) No Rita Landa, RN Note: Problem: Chronic Pain Goals: 1. Minimize further functional decline 2. Maximize quality of life 3. Control pain Strategies: - Activity/exercise program recommendation - Conservative stepwise pain medicine strategy with multi-disciplinary approach - Recommend healthy lifestyle strategies and compensatory methods as needed Medical Devices Implanted Type Area Fisher Trap Device Identifier Shelf Expiration Date Model / Serial / Lot [employer] Stent Graft Aortic Covered Tag [id number] Eptfe Nitinol [id number] - [id number] - [id number] Implanted:Qty : 1 on 05/02/2023 by Leo Manzano MD at [facility] Graft N/A: Aorta [employer] [id number] 12/07/2025 [id number] / [id number] / [employer] Stent Graft Thoracic Side Branch Tag [id number] Eptfe Nitinol [id number] - [id number] - [id number] Implanted:Qty : 1 on 05/02/2023 by Leo Manzano MD at [facility] Stent Left: Subclavian [employer] [id number] 06/27/2025 [id number] / [id number] / [employer] Graft Stent Greenwood Tag L20cm Od37mm Thoracic Active Control [id number] - [id number] - [id number] Implanted:Qty : 1 on 06/05/2023 by Nikhil Samuel MD at [facility] Stent N/A: Descending Thoracic Aorta [employer] [id number] 04/12/2024 [id number] / [id number] / [employer] Zenith 36mm 20-30mm 16mm 180mm 9 Dissection Introducer Sheath [id number] - [id number] Implanted:Qty : 1 on 06/05/2023 by Nikhil Samuel MD at [facility] Stent N/A: Descending Thoracic Aorta [employer] [id number] 12/20/2025 [id number] / / [id number] [employer] Device Clsr Perclose Prostyle Sut-Mediatd Closure-Repai r Sys 77312-93 - [id number] Implanted:Qty : 3 on 05/02/2023 by Leo Manzano MD at [facility] Vascular Closure Device Left: Common Femoral Artery [employer] [id number] 09/26/2024 [id number] / / [id number] Description:Same lot number [employer] Device Clsr Perclose Prostyle Sut-Mediatd Closure-Repai r Sys 44616-59 - [id number] Implanted:Qty : 1 on 06/05/2023 by Nikhil Samuel MD at [facility] Left: Groin [employer] [id number] 12/27/2024 [id number] / / [id number] [employer] Device Clsr Perclose Prostyle Sut-Mediatd Closure-Repai r Sys 53694-54 - [id number] Implanted:Qty : 1 on 06/05/2023 by Nikhil Samuel MD at [facility] Left: Groin [employer] [id number] 12/27/2024 [id number] / / [id number] [employer] Contour 6fr 26cm Large Inner Lumen Low Profile Bladder Ag Taper Latex Free 180-223 - [id number] Implanted:Qty : 1 on 09/27/2023 by Marcus Glass MD at [facility] Right: Ureter [employer] 05/16/2026 [id number] / / [id number] [employer] Ron Contour 6fr 26cm Large Inner Lumen Low Profile Bladder Ag Taper Latex Free 180-223 - [id number] Implanted:Qty : 1 on 10/04/2023 by Otoniel Landa MD at [facility] Right: Ureter [employer] 05/16/2026 [id number] / / [id number] Explanted Type Area Fisher Trap Device Identifier Shelf Expiration Date Model / Serial / Lot [employer] Inlay [place] 6fr 28cm Pusher Fluoro Marker Atraumatic Insertion Latex Free [id number] - [id number] Implanted:Qty: 1 on 07/04/2023 by Marcus Gamboa MD at [facility] Explanted:Qty: 1 on 07/14/2023 by Stacia Su MD Stent Left: Ureter [employer] [id number] 04/14/2027 [id number] / / [id number] Procedures Procedure Name Priority Date/Time Associated Diagnosis Comments PAIN MGMT IMAGING SI JOINT BILATERAL ARTHROGRPHY Schedule Routine, Read Routine (OP Routine) 06/20/2024 8:41 AM MERCANTILE AGENT Sacroiliitis (HCC) EGFR Timed 05/28/2024 3:36 AM MERCANTILE AGENT BASIC METABOLIC PANEL Timed 05/28/2024 3:36 AM MERCANTILE AGENT CBC WITHOUT DIFFERENTIAL Timed 05/28/2024 3:36 AM MERCANTILE AGENT LIDOCAINE LEVEL Timed 05/28/2024 3:36 AM MERCANTILE AGENT LIDOCAINE LEVEL Timed 05/27/2024 3:29 AM MERCANTILE AGENT TYPE AND SCREEN Timed 05/27/2024 3:29 AM MERCANTILE AGENT EGFR Routine 05/26/2024 4:38 AM MERCANTILE AGENT LIDOCAINE LEVEL Timed 05/26/2024 4:38 AM MERCANTILE AGENT BASIC METABOLIC PANEL Routine 05/26/2024 4:38 AM MERCANTILE AGENT CBC WITHOUT DIFFERENTIAL Routine 05/26/2024 4:38 AM MERCANTILE AGENT EGFR Routine 05/25/2024 4:20 PM MERCANTILE AGENT BASIC METABOLIC PANEL Routine 05/25/2024 4:20 PM MERCANTILE AGENT CBC WITHOUT DIFFERENTIAL Routine 05/25/2024 4:20 PM MERCANTILE AGENT LIDOCAINE LEVEL Routine 05/25/2024 4:20 PM MERCANTILE AGENT CRITICAL CARE Routine 05/25/2024 8:12 AM MERCANTILE AGENT Abdominal pain POCT GLUCOSE DEVICE Routine 05/25/2024 4 :16 AM MERCANTILE AGENT POCT GLUCOSE DEVICE Routine 05/24/2024 1 1:36 PM MERCANTILE AGENT POCT GLUCOSE DEVICE Routine 05/24/2024 8 :50 PM MERCANTILE AGENT CRITICAL CARE Routine 05/24/2024 8:47 PM MERCANTILE AGENT Abdominal pain EGFR Routine 05/24/2024 5:43 PM MERCANTILE AGENT DIFFERENTIAL AUTO Routine 05/24/2024 5:4 3 PM MERCANTILE AGENT LACTATE, WHOLE BLOOD STAT 05/24/2024 5:43 PM MERCANTILE AGENT AMYLASE Routine 05/24/2024 5:43 PM MERCANTILE AGENT PHOSPHORUS Routine 05/24/2024 5:43 PM MERCANTILE AGENT MAGNESIUM Routine 05/24/2024 5:43 PM MERCANTILE AGENT COMPREHENSIVE METABOLIC PANEL Routine 05/24/2024 5:43 PM MERCANTILE AGENT CBC WITH AUTO DIFFERENTIAL Routine 05/24/2024 5:43 PM MERCANTILE AGENT POCT GLUCOSE DEVICE Routine 05/24/2024 3 :52 PM MERCANTILE AGENT POCT GLUCOSE DEVICE Routine 05/24/2024 1 1:06 AM MERCANTILE AGENT POCT GLUCOSE DEVICE Routine 05/24/2024 7 :46 AM MERCANTILE AGENT CRITICAL CARE Routine 05/24/2024 6:15 AM MERCANTILE AGENT Abdominal pain POCT GLUCOSE DEVICE Routine 05/24/2024 3 :23 AM MERCANTILE AGENT POCT GLUCOSE DEVICE Routine 05/23/2024 1 1:04 PM MERCANTILE AGENT EGFR STAT 05/23/2024 8:33 PM MERCANTILE AGENT DIFFERENTIAL AUTO STAT 05/23/2024 8:3 3 PM MERCANTILE AGENT PROTIME-INR STAT 05/23/2024 8:33 PM MERCANTILE AGENT APTT STAT 05/23/2024 8:33 PM MERCANTILE AGENT TYPE AND SCREEN Timed 05/23/2024 8:33 PM MERCANTILE AGENT CBC WITH AUTO DIFFERENTIAL STAT 05/23/2024 8:33 PM MERCANTILE AGENT CREATINE KINASE (CK), TOTAL STAT 05/23/2024 8:33 PM MERCANTILE AGENT LACTATE STAT 05/23/2024 8:33 PM MERCANTILE AGENT CALCIUM, IONIZED STAT 05/23/2024 8:33 PM MERCANTILE AGENT PHOSPHORUS STAT 05/23/2024 8:33 PM MERCANTILE AGENT MAGNESIUM STAT 05/23/2024 8:33 PM MERCANTILE AGENT COMPREHENSIVE METABOLIC PANEL STAT 05/23/2024 8:[address] BODY OUTSIDE REFERENCE Routine 05/23/2024 8:[address] BODY OUTSIDE CONSULT Routine 05/23/2024 8:18 PM MERCANTILE AGENT POCT GLUCOSE DEVICE Routine 05/23/2024 7 :47 PM MERCANTILE AGENT POCT RAPID HIV ANTIBODY COMMUNITY SCREENING-PAPA ELIGIBLE Routine 05/21/2024 7:35 PM MERCANTILE AGENT OXYCODONE CONFIRMATION, URINE Routine 05/21/2024 5:34 PM MERCANTILE AGENT FENTANYL CONFIRMATION, MS URINE Routine 05/21/2024 5:34 PM MERCANTILE AGENT AMPHETAMINE, URINE, CONFIRMATION Routine 05/21/2024 5:34 PM MERCANTILE AGENT URINALYSIS, MICROSCOPIC ONLY STAT 05/21/2024 5:34 PM MERCANTILE AGENT DRUGS OF ABUSE SCREEN, URINE WITH REFLEX CONFIRMATION Routine 05/21/2024 5:34 PM MERCANTILE AGENT URINALYSIS AND REFLEX TO MICROSCOPIC STAT 05/21/2024 5:34 PM MERCANTILE AGENT SEPSIS LACTATE WITH REFLEX STAT 05/21/2024 4:33 PM MERCANTILE AGENT EGFR STAT 05/21/2024 3:41 PM MERCANTILE AGENT DIFFERENTIAL AUTO STAT 05/21/2024 3:4 1 PM MERCANTILE AGENT LIPASE STAT 05/21/2024 3:41 PM MERCANTILE AGENT COMPREHENSIVE METABOLIC PANEL STAT 05/21/2024 3:41 PM MERCANTILE AGENT CBC WITH AUTO DIFFERENTIAL STAT 05/21/2024 3:41 PM MERCANTILE AGENT ECG 12-LEAD STAT 05/21/2024 2:24 PM MERCANTILE AGENT ECG 12-LEAD STAT 05/19/2024 11:55 PM MERCANTILE AGENT XR CHEST PA LATERAL 2 VIEWS ED 05/19/2024 10:34 PM MERCANTILE AGENT CTA CHEST ABDOMEN PELVIS ED 05/19/2024 10:20 PM MERCANTILE AGENT EGFR STAT 05/19/2024 9:12 PM MERCANTILE AGENT DIFFERENTIAL AUTO Timed 05/19/2024 9:1 2 PM MERCANTILE AGENT TROPONIN I HIGH-SENSITIVITY SERIES (BASELINE, 2HR, 4HR, 6HR) STAT 05/19/2024 9:12 PM MERCANTILE AGENT TYPE AND SCREEN STAT 05/19/2024 9:12 PM MERCANTILE AGENT APTT STAT 05/19/2024 9:12 PM MERCANTILE AGENT PROTIME-INR STAT 05/19/2024 9:12 PM MERCANTILE AGENT COMPREHENSIVE METABOLIC PANEL STAT 05/19/2024 9:12 PM MERCANTILE AGENT CBC WITH AUTO DIFFERENTIAL Timed 05/19/2024 9:12 PM MERCANTILE AGENT HEPATITIS C ANTIBODY Routine 09/06/2023 11:15 AM CDT from Last 3 Months or Most Recently Relevant to Health Maintenance Results * Imaging SI Joint Injection Bilateral (61466) (06/20/2024 8:41 AM MERCANTILE AGENT) Narrative [facility] - 06/20/2024 8:41 AM MERCANTILE AGENT The images from this study are not interpreted by Radiology. ??Please refer to the physician's procedure / OR operative note. us Adrianne Adams MD PhD IMG PAIN MGMT PROCEDURE S Final Result [facility] * eGFR (05/28/2024 3:36 AM MERCANTILE AGENT) eGFR >90 >=60 mL/min/1. 73 m2 Comment: [...] last reviewed 2021. Blood 05/28/2024 3:36 AM MERCANTILE AGENT 05/28/2024 4:30 AM MERCANTILE AGENT us Leo Manzano MD LAB BLOOD ORDERABLES Final Result Performing Organization Address City/[facility]/ZIP Co de Phone Number [facility] [place] [address] * (ABNORMAL) Lidocaine level (05/28/2024 3:36 AM MERCANTILE AGENT) [facility] Lidocaine (Xylocaine) <1.0(L) 1.5 - 5.0 mcg/mL Blood 05/28/2024 3:36 AM MERCANTILE AGENT 05/28/2024 4:30 AM MERCANTILE AGENT Gonzalez Lamar DO LAB BLOOD ORDERABLES Fin al Result Performing Organization Address City/[facility] Co de Phone Number [facility] [place] [address] * (ABNORMAL) CBC without differential (05/28/2024 3:36 AM MERCANTILE AGENT) [facility] WBC 5.0 3.8 - 9.9 K/cumm Hgb 11.7(L) 13.0 - 17.5 g/dL [facility] Hct 35.3(L) 38.9 - 50.3 % [facility] Plt 240 150 - 400 K/cumm [facility] MPV 9.5 9.1 - 12.3 fL [facility] RBC 3.82(L) 4.30 - 5.80 M/cumm [facility] MCV 92.4 81.3 - 96.4 fL [facility] MCH 30.6 27.1 - 33.3 pg [facility] MCHC 33.1 32.3 - 35.7 g/dL [facility] RDW CV 13.3 11.1 - 14.9 % [facility] RDW SD 45.1 35.7 - 48.1 fL [facility] NRBC abs 0.00 0.00 - 0.01 K/cumm [facility] Blood 05/28/2024 3:36 AM MERCANTILE AGENT 05/28/2024 4:32 AM MERCANTILE AGENT Leo Manzano MD LAB BLOOD ORDERABLES Final Result [facility] Department [place] [address] * Basic metabolic panel (05/28/2024 3:36 AM MERCANTILE AGENT) [facility] Sodium 140 135 - 145 mmol/L Potassium, pl 4.0 3.3 - 4.9 mmol/L [facility] Chloride 103 97 - 110 mmol/L [facility] CO2 25 22 - 32 mmol/L [facility] Anion gap 12 2 - 15 mmol/L [facility] BUN 18 6 - 25 mg/dL [facility] Creatinine 1.10 0.80 - 1.30 mg/dL [facility] Glucose 85 70 - 199 mg/dL [facility] [...] 2022. Calcium 9.1 8.5 - 10.3 mg/dL [facility] Blood 05/28/2024 3:36 AM MERCANTILE AGENT 05/28/2024 4:30 AM MERCANTILE AGENT Leo Manzano MD LAB BLOOD ORDERABLES Final Result [facility] Department [place] [address] * Lidocaine level (05/27/2024 3:29 AM MERCANTILE AGENT) Pathologist [facility] Lidocaine (Xylocaine) 1.5 1.5 - 5.0 mcg/mL Blood 05/27/2024 3:29 AM MERCANTILE AGENT 05/27/2024 4:21 AM MERCANTILE AGENT Gonzalez Lamar DO LAB BLOOD ORDERABLES Fin al Result [facility] Department [place] [address] * Type and screen (05/27/2024 3:29 AM MERCANTILE AGENT) [facility] Ellen, indirect Negative ABO Rh A Positive [facility] Blood 05/27/2024 3:29 AM MERCANTILE AGENT 05/27/2024 4:33 AM MERCANTILE AGENT Narrative [facility] - 05/27/2024 5:33 AM MERCANTILE AGENT Has the patient had Daratumumab or Isatuximab in the past 6 months?->Unknown Moriah Amin COMMERCIAL REAL ESTATE APPRAISER LAB BLOOD BANK TEST ORDERABLE S Final Result Performing Organization Address [facility] Co de Phone Number [facility] Department [place] [address] * eGFR (05/26/2024 4:38 AM MERCANTILE AGENT) Pathologist [facility] eGFR 86 >=60 mL/min/1. 73 m2 Comment: [...] last reviewed 2021. Blood 05/26/2024 4:38 AM MERCANTILE AGENT 05/26/2024 5:46 AM MERCANTILE AGENT Moriah Amin COMMERCIAL REAL ESTATE APPRAISER LAB BLOOD ORDERABLES Final Re sult Performing Organization Address [facility] Co de Phone Number [facility] Department [place] [address] * Lidocaine level (05/26/2024 4:38 AM MERCANTILE AGENT) Lidocaine (Xylocaine) 1.8 1.5 - 5.0 mcg/mL Blood 05/26/2024 4:38 AM MERCANTILE AGENT 05/26/2024 5:46 AM MERCANTILE AGENT Gonzalez Lamar DO LAB BLOOD ORDERABLES Fin al Result Performing Organization Address [facility] Co de Phone Number [facility] Department [place] [address] * (ABNORMAL) CBC without differential (05/26/2024 4:38 AM MERCANTILE AGENT) WBC 5.5 3.8 - 9.9 K/cumm Hgb 11.5(L) 13.0 - 17.5 g/dL [facility] Hct 34.0(L) 38.9 - 50.3 % [facility] Plt 222 150 - 400 K/cumm [facility] MPV 9.7 9.1 - 12.3 fL [facility] RBC 3.67(L) 4.30 - 5.80 M/cumm [facility] MCV 92.6 81.3 - 96.4 fL [facility] MCH 31.3 27.1 - 33.3 pg [facility] MCHC 33.8 32.3 - 35.7 g/dL [facility] RDW CV 13.3 11.1 - 14.9 % [facility] RDW SD 45.5 35.7 - 48.1 fL [facility] NRBC abs 0.00 0.00 - 0.01 K/cumm [facility] Blood 05/26/2024 4:38 AM MERCANTILE AGENT 05/26/2024 5:46 AM MERCANTILE AGENT Moriah Amin NP LAB BLOOD ORDERABLES Final Re sult [facility] Department [place] [address] * Basic metabolic panel (05/26/2024 4:38 AM MERCANTILE AGENT) Sodium 141 135 - 145 mmol/L Potassium, pl 3.9 3.3 - 4.9 mmol/L [facility] Chloride 107 97 - 110 mmol/L [facility] CO2 26 22 - 32 mmol/L [facility] Anion gap 8 2 - 15 mmol/L [facility] BUN 15 6 - 25 mg/dL [facility] Creatinine 1.16 0.80 - 1.30 mg/dL [facility] Glucose 78 70 - 199 mg/dL [facility] [...] 2022. Calcium 8.6 8.5 - 10.3 mg/dL [facility] Blood 05/26/2024 4:38 AM MERCANTILE AGENT 05/26/2024 5:46 AM MERCANTILE AGENT Moriah Amin COMMERCIAL REAL ESTATE APPRAISER LAB BLOOD ORDERABLES Final Re sult [facility] Department [place] [address] * eGFR (05/25/2024 4:20 PM MERCANTILE AGENT) eGFR >90 >=60 mL/min/1. 73 m2 Comment: [...] last reviewed 2021. Blood 05/25/2024 4:20 PM MERCANTILE AGENT 05/25/2024 4:33 PM MERCANTILE AGENT Moriah Amin COMMERCIAL REAL ESTATE APPRAISER LAB BLOOD ORDERABLES Final Re sult Performing Organization Address [facility]/ZIP Co de Phone Number [facility] [place] [address] * Lidocaine level (05/25/2024 4:20 PM MERCANTILE AGENT) [facility] Lidocaine (Xylocaine) 2.1 1.5 - 5.0 mcg/mL Blood 05/25/2024 4:20 PM MERCANTILE AGENT 05/25/2024 4:33 PM MERCANTILE AGENT Narrative [facility] - 05/25/2024 5:02 PM MERCANTILE AGENT Draw 24 hours after infusion started. Moriah Amin COMMERCIAL REAL ESTATE APPRAISER LAB BLOOD ORDERABLES Final Re sult Performing Organization Address [facility] Co de Phone Number [facility] [place] [address] * (ABNORMAL) CBC without differential (05/25/2024 4:20 PM MERCANTILE AGENT) [facility] WBC 6.1 3.8 - 9.9 K/cumm Hgb 12.1(L) 13.0 - 17.5 g/dL [facility] Hct 36.3(L) 38.9 - 50.3 % [facility] Plt 246 150 - 400 K/cumm [facility] MPV 9.6 9.1 - 12.3 fL [facility] RBC 4.03(L) 4.30 - 5.80 M/cumm [facility] MCV 90.1 81.3 - 96.4 fL [facility] MCH 30.0 27.1 - 33.3 pg [facility] MCHC 33.3 32.3 - 35.7 g/dL [facility] RDW CV 13.3 11.1 - 14.9 % [facility] RDW SD 44.0 35.7 - 48.1 fL [facility] NRBC abs 0.00 0.00 - 0.01 K/cumm [facility] Blood 05/25/2024 4:20 PM MERCANTILE AGENT 05/25/2024 4:33 PM MERCANTILE AGENT Moriah Amin COMMERCIAL REAL ESTATE APPRAISER LAB BLOOD ORDERABLES Final Re sult Performing Organization Address City/[facility] Co de Phone Number [facility] Department [place] [address] * Basic metabolic panel (05/25/2024 4:20 PM MERCANTILE AGENT) [facility] Sodium 140 135 - 145 mmol/L Potassium, pl 3.9 3.3 - 4.9 mmol/L [facility] Chloride 106 97 - 110 mmol/L [facility] CO2 25 22 - 32 mmol/L [facility] Anion gap 9 2 - 15 mmol/L [facility] BUN 10 6 - 25 mg/dL [facility] Creatinine 0.92 0.80 - 1.30 mg/dL [facility] [...] 2022. Calcium 8.9 8.5 - 10.3 mg/dL [facility] Blood 05/25/2024 4:20 PM MERCANTILE AGENT 05/25/2024 4:33 PM MERCANTILE AGENT Moriah Amin COMMERCIAL REAL ESTATE APPRAISER LAB BLOOD ORDERABLES Final Re sult Performing Organization Address [facility] Co de Phone Number [facility] Department [place] [address] * Critical Care (05/25/2024 8:12 AM MERCANTILE AGENT) Narrative Rafiq Rodriguez MD - 05/25/2024 8:12 AM MERCANTILE AGENT Moriah Amin NP ? 05/25/2024 ??3:35 PM [...] plan with the patient's team and other medical/design sales consultant staff. This time was in addition to and separate from care provided by other practitioners on this day of service. ?? Moriah Amin COMMERCIAL REAL ESTATE APPRAISER IN CLINIC/BEDSIDE ORDERABLES Final Result * POCT glucose (05/25/2024 4:16 AM MERCANTILE AGENT) Glucose, POC 117 70 - 199 mg/dL Blood 05/25/2024 4:16 AM MERCANTILE AGENT 05/25/2024 4:16 AM MERCANTILE AGENT Gonzalez Lamar DO LAB POCT ORDERABLES - DE VICE Final Result Performing Organization Address [facility] Phone Number [facility] [place] [address] * POCT glucose (05/24/2024 11:36 PM MERCANTILE AGENT) Glucose, POC 116 70 - 199 mg/dL Blood 05/24/2024 11:3 6 PM MERCANTILE AGENT 05/24/2024 11:36 PM MERCANTILE AGENT Gonzalez Lamar DO LAB POCT ORDERABLES - DE VICE Final Result Performing Organization Address [facility] Co ia Phone Number [facility] [place] [address] * POCT glucose (05/24/2024 8:50 PM MERCANTILE AGENT) Glucose, POC 123 70 - 199 mg/dL Blood 05/24/2024 8:50 PM MERCANTILE AGENT 05/24/2024 8:50 PM MERCANTILE AGENT Gonzalez Lamar DO LAB POCT ORDERABLES - DE VICE Final Result [facility] Department [place] [address] * Critical Care (05/24/2024 8:47 PM MERCANTILE AGENT) Narrative Ag Lemos MD - 05/24/2024 8:47 PM MERCANTILE AGENT Ag Lemos MD ? 05/25/2024 ??6:53 AM [...] plan with the ICU team and other medical/design sales consultant staff, making frequent assessments and [...] Final Result * eGFR (05/24/2024 5:43 PM MERCANTILE AGENT) Pathologist [facility] eGFR >90 >=60 mL/min/1. [...] last reviewed 2021. Blood 05/24/2024 5:43 PM MERCANTILE AGENT 05/24/2024 6:00 PM MERCANTILE AGENT us Gonzalez Lamar DO LAB BLOOD ORDERABLES Fin al Result [facility] Department of Laboratories [place], [place] [id number] * Differential, auto (05/24/2024 5:43 PM MERCANTILE AGENT) Pathologist [facility] Neutrophil abs 4.9 1.5 - 6.5 K/cumm Imm gran abs 0.0 0.0 - 0.1 K/cumm [facility] Lymphocyte abs 1.4 0.8 - 3.3 K/cumm [facility] Monocyte abs 0.8 0.2 - 0.8 K/cumm [facility] Eosinophil abs 0.1 0.0 - 0.5 K/cumm [facility] Basophil abs 0.1 0.0 - 0.1 K/cumm [facility] Neutrophil pct 67.4 % [facility] Comment: Interpretive Data Percent cell count reference ranges are not reported, since discordance with absolute values may lead to misinterpretation of CBC data. Current Interpretive Data was last revised on 2017. Imm gran pct 0.4 % [facility] Comment: Interpretive Data Percent cell count reference ranges are not reported, since discordance with absolute values may lead to misinterpretation of CBC data. Current Interpretive Data was last revised on 2017. Lymphocyte pct 19.4 % [facility] Comment: Interpretive Data Percent cell count reference ranges are not reported, since discordance with absolute values may lead to misinterpretation of CBC data. Current Interpretive Data was last revised on 2017. Monocyte pct 11.3 % [facility] Comment: Interpretive Data Percent cell count reference ranges are not reported, since discordance with absolute values may lead to misinterpretation of CBC data. Current Interpretive Data was last revised on 2017. Eosinophil pct 0.8 % [facility] Comment: Interpretive Data Percent cell count reference ranges are not reported, since discordance with absolute values may lead to misinterpretation of CBC data. Current Interpretive Data was last revised on 2017. Basophil pct 0.7 % [facility] Comment: Interpretive Data Percent cell count reference ranges are not reported, since discordance with absolute values may lead to misinterpretation of CBC data. Current Interpretive Data was last revised on 2017. Blood 05/24/2024 5:4 3 PM MERCANTILE AGENT 05/24/2024 6:00 PM MERCANTILE AGENT us Gonzalez Lamar DO LAB BLOOD ORDERABLES Fin al Result [facility] Department [place] [address] * (ABNORMAL) CBC with auto differential (05/24/2024 5:43 PM MERCANTILE AGENT) [facility] WBC 7.2 3.8 - 9.9 K/cumm Hgb 11.5(L) 13.0 - 17.5 g/dL [facility] Hct 34.7(L) 38.9 - 50.3 % [facility] Plt 233 150 - 400 K/cumm [facility] MPV 9.2 9.1 - 12.3 fL [facility] RBC 3.77(L) 4.30 - 5.80 M/cumm [facility] MCV 92.0 81.3 - 96.4 fL [facility] MCH 30.5 27.1 - 33.3 pg [facility] MCHC 33.1 32.3 - 35.7 g/dL [facility] RDW CV 13.0 11.1 - 14.9 % [facility] RDW SD 43.8 35.7 - 48.1 fL [facility] NRBC abs 0.00 0.00 - 0.01 K/cumm [facility] Blood 05/24/2024 5:43 PM MERCANTILE AGENT 05/24/2024 6:00 PM MERCANTILE AGENT us Gonzalez Lamar DO LAB BLOOD ORDERABLES Fin al Result Performing Organization Address [facility]/ZIP Co de Phone Number [facility] Department [place] [address] * Lactate, whole blood (05/24/2024 5:43 PM MERCANTILE AGENT) [facility] Lactate, bld 0.7 0.7 - 2.0 mmol/L Blood 05/24/2024 5:43 PM MERCANTILE AGENT 05/24/2024 5:50 PM MERCANTILE AGENT us Moriah Amin COMMERCIAL REAL ESTATE APPRAISER LAB BLOOD ORDERABLES Final Re sult [facility] [place] [address] * Phosphorus (05/24/2024 5:43 PM MERCANTILE AGENT) Pathologist [facility] Phosphorus, pl 2.7 2.3 - 4.5 mg/dL Blood 05/24/2024 5:43 PM MERCANTILE AGENT 05/24/2024 6:00 PM MERCANTILE AGENT Gonzalez Lamar DO LAB BLOOD ORDERABLES Fin al Result Performing Organization Address [facility] [place] [address] * Magnesium (05/24/2024 5:43 PM MERCANTILE AGENT) Pathologist [facility] Magnesium 2.0 1.4 - 2.5 mg/dL Blood 05/24/2024 5:43 PM MERCANTILE AGENT 05/24/2024 6:00 PM MERCANTILE AGENT Gonzalez Lamar DO LAB BLOOD ORDERABLES Fin al Result Performing Organization Address [facility] de Phone Number [facility] [place] [address] * Amylase (05/24/2024 5:43 PM MERCANTILE AGENT) Pathologist [facility] Amylase 35 30 - 99 Units/L Blood 05/24/2024 5:43 PM MERCANTILE AGENT 05/24/2024 6:00 PM MERCANTILE AGENT Moriah Amin COMMERCIAL REAL ESTATE APPRAISER LAB BLOOD ORDERABLES Final Re sult Performing Organization Address [facility] [place] [address] * Comprehensive metabolic panel (05/24/2024 5:43 PM MERCANTILE AGENT) Pathologist [facility] Sodium 140 135 - 145 mmol/L Potassium, pl 3.9 3.3 - 4.9 mmol/L [facility] Chloride 105 97 - 110 mmol/L [facility] CO2 25 22 - 32 mmol/L [facility] Anion gap 10 2 - 15 mmol/L [facility] BUN 6 6 - 25 mg/dL [facility] Creatinine 0.88 0.80 - 1.30 mg/dL [facility] Glucose 86 70 - 199 mg/dL [facility] [...] 2022. Calcium 8.9 8.5 - 10.3 mg/dL [facility] Bilirubin, total 0.8 0.1 - 1.2 mg/dL [facility] Protein, pl 6.7 6.5 - 8.5 g/dL [facility] Albumin 4.1 3.5 - 5.0 g/dL [facility] Alk phos 81 40 - 130 Units/L [facility] ALT 15 7 - 55 Units/L [facility] AST 17 10 - 50 Units/L [facility] Blood 05/24/2024 5:43 PM MERCANTILE AGENT 05/24/2024 6:00 PM MERCANTILE AGENT us Gonzalez Lamar DO LAB BLOOD ORDERABLES Fin al Result [facility] Department of Laboratories [place], [place] [id number] * POCT glucose (05/24/2024 3:52 PM MERCANTILE AGENT) Pathologist [facility] Glucose, POC 84 70 - 199 mg/dL Blood 05/24/2024 3:52 PM MERCANTILE AGENT 05/24/2024 3:52 PM MERCANTILE AGENT us Gonzalez Lamar DO LAB POCT ORDERABLES - DE VICE Final Result Performing Organization Address [facility] [place] [address] * POCT glucose (05/24/2024 11:06 AM MERCANTILE AGENT) Glucose, POC 138 70 - 199 mg/dL Blood 05/24/2024 11:0 6 AM MERCANTILE AGENT 05/24/2024 11:06 AM MERCANTILE AGENT us Gonzalez Otoniel Lamar DO LAB POCT ORDERABLES - DE VICE Final Result Performing Organization Address [facility] [place] [address] * POCT glucose (05/24/2024 7:46 AM MERCANTILE AGENT) Glucose, POC 86 70 - 199 mg/dL Blood 05/24/2024 7:46 AM MERCANTILE AGENT 05/24/2024 7:46 AM MERCANTILE AGENT Gonzalez Lamar DO LAB POCT ORDERABLES - DE VICE Final Result Performing Organization Address [facility] [place] [address] * Critical Care (05/24/2024 6:15 AM MERCANTILE AGENT) Narrative Rafiq Rodriguez MD - 05/24/2024 6:15 AM MERCANTILE AGENT Moriah Amin NP ? 05/24/2024 ??5:42 PM [...] plan with the ICU team and other medical/design sales consultant staff, making frequent assessments and [...] the following conditions: ?? us Moriah Amin COMMERCIAL REAL ESTATE APPRAISER IN CLINIC/BEDSIDE ORDERABLES Final Result * POCT glucose (05/24/2024 3:23 AM MERCANTILE AGENT) Glucose, POC 85 70 - 199 mg/dL Blood 05/24/2024 3:23 AM MERCANTILE AGENT 05/24/2024 3:23 AM MERCANTILE AGENT us Gonzalez Lamar DO LAB POCT ORDERABLES - DE VICE Final Result Performing Organization Address City/[facility]/ZIP Co de Phone Number [facility] Department [place] [address] * POCT glucose (05/23/2024 11:04 PM MERCANTILE AGENT) Glucose, POC 84 70 - 199 mg/dL Blood 05/23/2024 11:0 4 PM MERCANTILE AGENT 05/23/2024 11:04 PM MERCANTILE AGENT Gonzalez Lamar DO LAB POCT ORDERABLES - DE VICE Final Result Performing Organization Address [facility]/ZIP Co de Phone [facility] [place] [address] * Lactate (05/23/2024 8:33 PM MERCANTILE AGENT) Lactate 0.7 0.7 - 2.0 mmol/L Blood 05/23/2024 8:33 PM MERCANTILE AGENT 05/23/2024 9:39 PM MERCANTILE AGENT us Gonzalez Frederick Silvanaaamir DO LAB BLOOD ORDERABLES Fin al Result Performing Organization Address [facility] Co de Phone Number [facility] Department [place] [address] * eGFR (05/23/2024 8:33 PM MERCANTILE AGENT) eGFR >90 >=60 mL/min/1. 73 m2 Comment: [...] last reviewed 2021. Blood 05/23/2024 8:33 PM MERCANTILE AGENT 05/23/2024 9:17 PM MERCANTILE AGENT us Gonzalez Lamar DO LAB BLOOD ORDERABLES Fin al Result Performing Organization Address [facility] Co de Phone Number [facility] Department [place] [address] * Differential, auto (05/23/2024 8:33 PM MERCANTILE AGENT) Neutrophil abs 3.9 1.5 - 6.5 K/cumm Imm gran abs 0.0 0.0 - 0.1 K/cumm [facility] Lymphocyte abs 1.9 0.8 - 3.3 K/cumm [facility] Monocyte abs 0.8 0.2 - 0.8 K/cumm [facility] Eosinophil abs 0.0 0.0 - 0.5 K/cumm [facility] Basophil abs 0.0 0.0 - 0.1 K/cumm [facility] Neutrophil pct 58.1 % [facility] Comment: Interpretive Data Percent cell count reference ranges are not reported, since discordance with absolute values may lead to misinterpretation of CBC data. Current Interpretive Data was last revised on 2017. Imm gran pct 0.4 % [facility] Comment: Interpretive Data Percent cell count reference ranges are not reported, since discordance with absolute values may lead to misinterpretation of CBC data. Current Interpretive Data was last revised on 2017. Lymphocyte pct 28.1 % [facility] Comment: Interpretive Data Percent cell count reference ranges are not reported, since discordance with absolute values may lead to misinterpretation of CBC data. Current Interpretive Data was last revised on 2017. Monocyte pct 12.4 % [facility] Comment: Interpretive Data Percent cell count reference ranges are not reported, since discordance with absolute values may lead to misinterpretation of CBC data. Current Interpretive Data was last revised on 2017. Eosinophil pct 0.4 % [facility] Comment: Interpretive Data Percent cell count reference ranges are not reported, since discordance with absolute values may lead to misinterpretation of CBC data. Current Interpretive Data was last revised on 2017. Basophil pct 0.6 % [facility] Comment: Interpretive Data Percent cell count reference ranges are not reported, since discordance with absolute values may lead to misinterpretation of CBC data. Current Interpretive Data was last revised on 2017. Blood 05/23/2024 8:33 PM MERCANTILE AGENT 05/23/2024 9:29 PM MERCANTILE AGENT Gonzalez Lamar DO LAB BLOOD ORDERABLES Fin al Result Performing Organization Address [facility] Co de Phone Number [facility] [place] [address] * (ABNORMAL) Calcium, ionized (05/23/2024 8:33 PM MERCANTILE AGENT) [facility] Calcium, Ionized 4.48(L) 4.50 - 5.10 mg/dL Blood 05/23/2024 8:33 PM MERCANTILE AGENT 05/23/2024 9:17 PM MERCANTILE AGENT Gonzalez Lamar DO LAB BLOOD ORDERABLES Fin al Result Performing Organization Address [facility] de Phone Number [facility] [place] [address] * (ABNORMAL) CBC with auto differential (05/23/2024 8:33 PM MERCANTILE AGENT) [facility] WBC 6.8 3.8 - 9.9 K/cumm Hgb 11.4(L) 13.0 - 17.5 g/dL [facility] Hct 33.7(L) 38.9 - 50.3 % [facility] Plt 237 150 - 400 K/cumm [facility] MPV 9.5 9.1 - 12.3 fL [facility] RBC 3.80(L) 4.30 - 5.80 M/cumm [facility] MCV 88.7 81.3 - 96.4 fL [facility] MCH 30.0 27.1 - 33.3 pg [facility] MCHC 33.8 32.3 - 35.7 g/dL [facility] RDW CV 13.0 11.1 - 14.9 % [facility] RDW SD 42.2 35.7 - 48.1 fL [facility] NRBC abs 0.00 0.00 - 0.01 K/cumm [facility] Blood 05/23/2024 8:33 PM MERCANTILE AGENT 05/23/2024 9:29 PM MERCANTILE AGENT Gonzalez Lamar LAB BLOOD ORDERABLES Fin al Result Performing Organization Address [facility] de Phone Number [facility] [place] [address] * aPTT (05/23/2024 8:33 PM MERCANTILE AGENT) aPTT 31 28 - 38 sec Comment: Interpretive Data Heparin therapeutic range: 66.0 - 100.0 seconds. Range based on correlation with therapeutic heparin activity range of 0.3 - 0.7 Units/mL. Current interpretive data was last revised on 2023. Blood 05/23/2024 8:33 PM MERCANTILE AGENT 05/23/2024 9:20 PM MERCANTILE AGENT Gonzalez Frederick Willard ARECHIGA LAB BLOOD ORDERABLES Fin al Result Performing Organization Address [facility] de Phone Number [facility] [place] [address] * (ABNORMAL) Protime-INR (05/23/2024 8:33 PM MERCANTILE AGENT) PT 14.6(H) 9.7 - 13.0 sec INR 1.34(H) 0.90 - 1.20 [facility] Comment: Interpretive data Oral anticoagulant therapeutic ranges: Venous thromboembolism prophylaxis or treatment: 2.0-3.0 CARDIOLOGY Standard range: 2.0-3.0 High-intensity range: 2.5-3.5 Refer to indication-specific guidelines for appropriate target ranges for prosthetic heart valve replacement. Current interpretive data was last revised on 2019. Blood 05/23/2024 8:33 PM MERCANTILE AGENT 05/23/2024 9:20 PM MERCANTILE AGENT Gonzalez Otoniel Lamar DO LAB BLOOD ORDERABLES Fin al Result Performing Organization Address [facility]/State/ZIP Co de Phone Number [facility] [place] [address] * Type and screen (05/23/2024 8:33 PM MERCANTILE AGENT) Ellen, indirect Negative ABO Rh A Positive [facility] Blood 05/23/2024 8:33 PM MERCANTILE AGENT 05/23/2024 9:31 PM MERCANTILE AGENT Narrative [facility] - 05/23/2024 10:36 PM MERCANTILE AGENT Has the patient had Daratumumab or Isatuximab in the past 6 months?->Unknown Moriah Amin [employer] LAB BLOOD BANK TEST ORDERABLE S Final Result Performing Organization Address [facility] Co de Phone Number [facility] [place] [address] * Phosphorus (05/23/2024 8:33 PM MERCANTILE AGENT) Pathologist [facility] Phosphorus, pl 2.5 2.3 - 4.5 mg/dL Blood 05/23/2024 8:33 PM MERCANTILE AGENT 05/23/2024 9:17 PM MERCANTILE AGENT Gonzalez Lamar DO LAB BLOOD ORDERABLES Fin al Result Performing Organization Address [facility] de Phone Number [facility] Department [place] [address] * Magnesium (05/23/2024 8:33 PM MERCANTILE AGENT) Pathologist [facility] Magnesium 2.0 1.4 - 2.5 mg/dL Blood 05/23/2024 8:33 PM MERCANTILE AGENT 05/23/2024 9:17 PM MERCANTILE AGENT Gonzalez Lamar DO LAB BLOOD ORDERABLES Fin al Result Performing Organization Address [facility] Co de Phone Number [facility] Department [place] [address] * Creatine kinase (CK), total (05/23/2024 8:33 PM MERCANTILE AGENT) CK 159 40 - 300 Units/L Blood 05/23/2024 8:33 PM MERCANTILE AGENT 05/23/2024 9:17 PM MERCANTILE AGENT us Gonzalez Otoniel Silvanaaamir DO LAB BLOOD ORDERABLES Fin al Result [facility] Department [place] [address] * (ABNORMAL) Comprehensive metabolic panel (05/23/2024 8:33 PM MERCANTILE AGENT) Pathologist [facility] Sodium 141 135 - 145 mmol/L Potassium, pl 3.2(L) 3.3 - 4.9 mmol/L [facility] Chloride 105 97 - 110 mmol/L [facility] CO2 25 22 - 32 mmol/L [facility] Anion gap 11 2 - 15 mmol/L [facility] BUN 11 6 - 25 mg/dL [facility] Creatinine 1.03 0.80 - 1.30 mg/dL [facility] Glucose 84 70 - 199 mg/dL [facility] [...] 2022. Calcium 9.0 8.5 - 10.3 mg/dL [facility] Bilirubin, total 1.2 0.1 - 1.2 mg/dL [facility] Protein, pl 7.0 6.5 - 8.5 g/dL [facility] Albumin 4.2 3.5 - 5.0 g/dL [facility] Alk phos 83 40 - 130 Units/L [facility] ALT 15 7 - 55 Units/L [facility] AST 16 10 - 50 Units/L [facility] Blood 05/23/2024 8:33 PM MERCANTILE AGENT 05/23/2024 9:17 PM MERCANTILE AGENT Gonzalez Lamar DO LAB BLOOD ORDERABLES Fin al Result Performing Organization Address City/[facility] Co de Phone Number JAIRON [facility] Department [place] [address] * CT Body Outside Reference (05/23/2024 8:22 PM MERCANTILE AGENT) Impressions RAD_PACS_[facility] - 05/23/2024 8:22 PM MERCANTILE AGENT These images are for Reference purposes only and have not been reviewed by [facility] Radiology. ??There will be no report generated by a [facility] Radiologist. Narrative RAD_PACS_[facility] - 05/23/2024 8:22 PM MERCANTILE AGENT EXAMINATION: ??Images For Reference Purposes Only Gadiel Ireland MD IMG CT PROCEDURES Final Result Performing Organization Address [facility] de Phone Number [id number] * CT Body Outside Consult (05/23/2024 8:18 PM MERCANTILE AGENT) Anatomical Region Laterality Modality Body N/A Computed Tomogra phy 05/24/2024 8:05 AM MERCANTILE AGENT Impressions 05/24/2024 8:05 AM MERCANTILE AGENT 1. ??Unchanged thoracoabdominal aortic dissection status post [...] Shahrzad Zimmerman M.D. Narrative 05/24/2024 8:05 AM MERCANTILE AGENT EXAMINATION: RADIOLOGY CONSULTATION ON OUTSIDE IMAGING STUDY STUDY INITIALLY PERFORMED: 05/23/2024 at [facility]. TYPE OF STUDY: Multiple CT images of [...] IMAGING STUDY STUDY INITIALLY PERFORMED: 05/23/2024 at [facility]. TYPE OF STUDY: Multiple CT images of [...] interpretation. Electronically signed by: Shahrzad Zimmerman M.D. us Gadiel Ireland MD IMG CT PROCEDURES Final Result * POCT glucose (05/23/2024 7:47 PM MERCANTILE AGENT) Glucose, POC 80 70 - 199 mg/dL Blood 05/23/2024 7:47 PM MERCANTILE AGENT 05/23/2024 7:47 PM MERCANTILE AGENT us Gonzalezallan Lamar DO LAB POCT ORDERABLES - DE VICE Final Result JA[facility]ON [facility] Department [place] [address] * POCT Rapid HIV Antibody Community Screening-[place] Eligible (05/21/2024 7:35 PM MERCANTILE AGENT) [facility] Rapid HIV, POC Negative Negative Lot Number [id number] QC Control Line Acceptable Blood 05/21/2024 7:35 PM MERCANTILE AGENT Marcus Amaya MD POINT OF CARE TEST ORD ERABLES Final Result * (ABNORMAL) Oxycodone Confirmation, Urine (05/21/2024 5:34 PM MERCANTILE AGENT) Pathologist [facility] Oxycodone Conf, Ur Confirmed Positive(A) CutOff [...] needed. Performance characteristics were determined by the [facility] in a manner consistent with CLIA requirement and has not been cleared or approved by the U.S. Food and Drug Administration. Current interpretive data was last revised 2020. Urine 05/21/2024 5:34 PM MERCANTILE AGENT 05/21/2024 5:46 PM MERCANTILE AGENT Marcus Amaya MD LAB URINE ORDERABLES F inal Result Performing Organization Address [facility] Co de Phone Number JAIRON [facility] [place] [address] * (ABNORMAL) Fentanyl Confirmation, Urine (05/21/2024 5:34 PM MERCANTILE AGENT) Fentanyl Conf, Ur Confirmed Positive(A) Cutoff 0.3ng/mL Acetylfentanyl Conf, Ur Does Not Confirm Cutoff 1 ng/mL [facility] Acrylfentanyl Conf, Ur Does Not Confirm Cutoff 1 ng/mL [facility] Furanylfentanyl Conf, Ur Does Not Confirm Cutoff 1 ng/mL [facility] Fentanyl Metabolite (Norfentanyl) Conf, Ur Confirmed Positive(A) CutOff 5 ng/mL [facility] Xylazine MS [...] needed. Performance characteristics were determined by the [facility] in a manner consistent with CLIA requirement and has not been cleared or approved by the U.S. Food and Drug Administration. Current interpretive data was last revised 2020. Urine 05/21/2024 5:34 PM MERCANTILE AGENT 05/21/2024 5:46 PM MERCANTILE AGENT Marcus Amaya MD LAB URINE ORDERABLES F inal Result Performing Organization Address [facility] Co de Phone Number [facility] [place] [address] * (ABNORMAL) Drugs of Abuse Screen, Urine with Reflex Confirmation (05/21/2024 5:34 PM MERCANTILE AGENT) Amphetamine, ur Screen Positive, presumptive (A) CutOff [...] ur Not Detected CutOff 200ng/mL [facility] Comment: Interpretive Data - Barbiturates: ??Samples containing greater than 200 ng/mL secobarbital or other cross-reacting barbiturate compounds are reported as positive. ??False positive and false negative results are possible. Confirmatory testing required for definitive results. Current Interpretive Data was last reviewed 2022. Benzodiazepines, ur Screen Positive, presumptive (A) CutOff 100ng/mL [facility] Comment: Interpretive Data - Benzodiazepines: ??Samples containing greater than 100 ng/mL nordiazepam or other cross-reacting compounds are reported as positive. False positive and false negative results are possible. Confirmatory testing required for definitive results. Current Interpretive Data was last reviewed 2022. Cannabinoids, ur Screen Positive, presumptive (A) CutOff 50 ng/mL [facility] Comment: Interpretive Data - Cannabinoids: ??Samples containing greater than 50 ng/mL delta-9 THC -COOH or other cross-reacting compounds are reported as positive. ??False positive and false negative results are possible. ??Confirmatory testing required for definitive results. Current Interpretive Data was last reviewed 2022. Cocaine, ur Not Detected CutOff 150ng/mL [facility] Comment: Interpretive Data - Cocaine: ??Samples containing greater than 150 ng/mL benzoylecgonine or other cross-reacting compounds are reported as positive. False positive and false negative results are possible. Confirmatory testing required for definitive results. Current Interpretive Data was last reviewed 2022. Fentanyl, Ur Screen Positive, presumptive (A) CutOff 5 ng/mL [facility] Comment: Interpretive Data - Fentanyl: ?? Samples containing greater than 5 ng/mL norfentanyl, fentanyl, or other cross-reacting fentanyl compounds are reported as positive. False positive and false negative results are possible. Confirmatory testing required for definitive results. Current Interpretive Data was last reviewed 2023. Methadone, ur Not Detected CutOff 300ng/mL [facility] Comment: Interpretive Data - Methadone: ??Samples containing greater than 300 ng/mL d,l-methadone or other cross-reacting compounds are reported as positive. ??False positive and false negative results are possible. Confirmatory testing required for definitive results. Current Interpretive Data was last reviewed 2022. Opiates, ur Not Detected CutOff 300ng/mL [facility] Comment: Interpretive Data - Opiates: ??Samples containing greater than 300 ng/mL morphine or other cross-reacting compounds are reported as positive. ??False positive and false negative results are possible. Confirmatory testing required for definitive results. Current Interpretive Data was last reviewed 2022. Oxycodone, ur Screen Positive, presumptive (A) CutOff 100ng/mL [facility] Comment: Interpretive Data - Oxycodone: ??Samples containing greater than 100 ng/mL oxycodone or other cross-reacting compounds are reported as ??positive. ??False positive and false negative results are possible. Confirmatory testing required for definitive results. Current Interpretive Data was last reviewed 2022. Phencyclidine, ur Not Detected CutOff 25 ng/mL [facility] Comment: Interpretive Data - Phencyclidine: ??Samples containing greater than 25 ng/mL phencyclidine or other cross-reacting compounds are reported as positive. ??False positive and false negative results are possible. Confirmatory testing required for definitive results. Current Interpretive Data was last reviewed 2022. Urine Creatinine 357 mg/dL [facility] Comment: Interpretive Data Urine Creatinine: < 10 mg/dL is extremely dilute = or > 10 but < 20 mg/dL is dilute = or > 20 mg/dL is normal Current Interpretive Data was last revised on 2017. Urine 05/21/2024 5:34 PM MERCANTILE AGENT 05/21/2024 5:46 PM MERCANTILE AGENT Narrative [facility] - 05/21/2024 6:16 PM MERCANTILE AGENT Drug of Abuse screening is performed by immunoassay for medical purposes only. ??This is not to be used for Pain Management purposes. ??If Detected, confirmation testing will be performed for Amphetamines, Cocaine, Fentanyl, Methadone, Opiates, Oxycodone or Phencyclidine. Marcus Amaya MD LAB URINE ORDERABLES F inal Result Performing Organization Address City/[facility]/ZIP Co de Phone Number [facility] [place] [address] * (ABNORMAL) Urinalysis reflex to microscopic (05/21/2024 5:34 PM MERCANTILE AGENT) Color, ur Yellow Yellow Clarity, ur Clear Clear [facility] Specific gravity, ur 1.032(H) 1.003 - 1.030 [facility] pH, urine 6.0 [facility] Comment: Interpretive Data ? Urine pH is affected by diet, medications, systemic acid-base disturbances, and renal tubular function. ??pH may affect urinary stone formation. ??For example, urine pH below 6.0 may help reduce the tendency for calcium phosphate stones and pH greater than 6.0 may reduce the tendency for uric acid stone formation. Source: [facility] Current Interpretive Data was last revised on 2017 Protein, ur ql 2+(A) Negative [facility] Glucose, ur ql Negative Negative [facility] Ketones, ur 1+(A) Negative [facility] Bilirubin, ur Negative Negative [facility] Blood, ur Negative Negative [facility] Urobilinogen, ur <2.0 <2.0 mg/dL [facility] Nitrite, ur Negative Negative [facility] Leukocyte esterase, ur Negative Negative [facility] UA reflex comment Reflex to microscopic UA will be performed. [facility] Urine 05/21/2024 5:34 PM MERCANTILE AGENT 05/21/2024 5:39 PM MERCANTILE AGENT Marcus Amaya MD LAB URINE ORDERABLES F inal Result Performing Organization Address City/[facility]/ZIP Co de Phone Number JAIRON [facility] Department [place] [address] * Amphetamine Confirmation, Urine (05/21/2024 5:34 PM MERCANTILE AGENT) Amphetamine Conf, Ur Does Not Confirm CutOff [...] needed. Performance characteristics were determined by the [facility] in a manner consistent with CLIA requirement and has not been cleared or approved by the U.S. Food and Drug Administration. Current interpretive data was last revised on 2020. Urine 05/21/2024 5:34 PM MERCANTILE AGENT 05/21/2024 5:46 PM MERCANTILE AGENT Marcus Amaya MD LAB URINE ORDERABLES F inal Result Performing Organization Address City/[facility]/ZIP Co de Phone Number [facility] [place] [address] * (ABNORMAL) Urinalysis, microscopic only (05/21/2024 5:34 PM MERCANTILE AGENT) WBC, ur 0-5 0 - 5 /HPF RBC, ur 0-2 0 - 2 /HPF [facility] Epithelial cells, squamous, ur 1-5 0 - 5 /HPF [facility] Bacteria, ur Trace(A) [facility] Mucous, ur Present(A) [facility] Hyaline casts, ur 11-20(A) 0 - 10 /LPF [facility] Urine 05/21/2024 5:34 PM MERCANTILE AGENT 05/21/2024 5:39 PM MERCANTILE AGENT Marcus Amaya MD LAB URINE ORDERABLES F inal Result Performing Organization Address City/[facility]/ZIP Co de Phone Number [facility] [place] [address] * Sepsis Lactate w/ Reflex (05/21/2024 4:33 PM MERCANTILE AGENT) Sepsis Lactate 1.9 0.7 - 2.0 mmol/L Blood 05/21/2024 4:33 PM MERCANTILE AGENT 05/21/2024 4:44 PM MERCANTILE AGENT us Marcus Amaya MD LAB BLOOD ORDERABLES F inal Result [facility] Department [place] [address] * eGFR (05/21/2024 3:41 PM MERCANTILE AGENT) eGFR 70 >=60 mL/min/1. 73 m2 Comment: [...] last reviewed 2021. Blood 05/21/2024 3:41 PM MERCANTILE AGENT 05/21/2024 4:03 PM MERCANTILE AGENT us Chelle Elliott MD LAB BLOOD ORDERABLES Final Result [facility] Department [place] [address] * (ABNORMAL) Differential, auto (05/21/2024 3:41 PM MERCANTILE AGENT) Neutrophil abs 6.9(H) 1.5 - 6.5 K/cumm Imm gran abs 0.0 0.0 - 0.1 K/cumm [facility] Lymphocyte abs 1.5 0.8 - 3.3 K/cumm [facility] Monocyte abs 0.9(H) 0.2 - 0.8 K/cumm [facility] Eosinophil abs 0.0 0.0 - 0.5 K/cumm [facility] Basophil abs 0.0 0.0 - 0.1 K/cumm [facility] Neutrophil pct 73.5 % [facility] Comment: Interpretive Data Percent cell count reference ranges are not reported, since discordance with absolute values may lead to misinterpretation of CBC data. Current Interpretive Data was last revised on 2017. Imm gran pct 0.3 % [facility] Comment: Interpretive Data Percent cell count reference ranges are not reported, since discordance with absolute values may lead to misinterpretation of CBC data. Current Interpretive Data was last revised on 2017. Lymphocyte pct 15.7 % [facility] Comment: Interpretive Data Percent cell count reference ranges are not reported, since discordance with absolute values may lead to misinterpretation of CBC data. Current Interpretive Data was last revised on 2017. Monocyte pct 10.0 % [facility] Comment: Interpretive Data Percent cell count reference ranges are not reported, since discordance with absolute values may lead to misinterpretation of CBC data. Current Interpretive Data was last revised on 2017. Eosinophil pct 0.1 % [facility] Comment: Interpretive Data Percent cell count reference ranges are not reported, since discordance with absolute values may lead to misinterpretation of CBC data. Current Interpretive Data was last revised on 2017. Basophil pct 0.4 % [facility] Comment: Interpretive Data Percent cell count reference ranges are not reported, since discordance with absolute values may lead to misinterpretation of CBC data. Current Interpretive Data was last revised on 2017. Blood 05/21/2024 3:41 PM MERCANTILE AGENT 05/21/2024 4:06 PM MERCANTILE AGENT Chelle Elliott MD LAB BLOOD ORDERABLES Final Result Performing Organization Address City/[facility] Co de Phone Number [facility] [place] [address] * CBC with auto differential (05/21/2024 3:41 PM MERCANTILE AGENT) WBC 9.4 3.8 - 9.9 K/cumm Hgb 13.9 13.0 - 17.5 g/dL [facility] Hct 40.0 38.9 - 50.3 % [facility] Plt 291 150 - 400 K/cumm [facility] MPV 9.1 9.1 - 12.3 fL [facility] RBC 4.59 4.30 - 5.80 M/cumm [facility] MCV 87.1 81.3 - 96.4 fL [facility] MCH 30.3 27.1 - 33.3 pg [facility] MCHC 34.8 32.3 - 35.7 g/dL [facility] RDW CV 13.1 11.1 - 14.9 % [facility] RDW SD 41.8 35.7 - 48.1 fL [facility] NRBC abs 0.00 0.00 - 0.01 K/cumm [facility] Blood (Blood, Venous) 05/21/2024 3:41 PM MERCANTILE AGENT 05/21/2024 4:06 PM MERCANTILE AGENT Marcus Amaya MD LAB BLOOD ORDERABLES F inal Result Performing Organization Address City/[facility]/ZIP Co de Phone Number [facility] Department [place] [address] * Lipase (05/21/2024 3:41 PM MERCANTILE AGENT) Lipase 15 10 - 99 Units/L Blood (Blood, Venous) 05/21/2024 3:41 PM MERCANTILE AGENT 05/21/2024 4:03 PM MERCANTILE AGENT us Marcus Amaya MD LAB BLOOD ORDERABLES F inal Result [facility] Department [place] [address] * (ABNORMAL) Comprehensive metabolic panel (05/21/2024 3:41 PM MERCANTILE AGENT) Sodium 136 135 - 145 mmol/L Potassium, pl 3.6 3.3 - 4.9 mmol/L [facility] Chloride 99 97 - 110 mmol/L [facility] CO2 22 22 - 32 mmol/L [facility] Anion gap 15 2 - 15 mmol/L [facility] BUN 22 6 - 25 mg/dL [facility] Creatinine 1.37(H) 0.80 - 1.30 mg/dL [facility] Glucose 92 70 - 199 mg/dL [facility] [...] 2022. Calcium 10.3 8.5 - 10.3 mg/dL [facility] Bilirubin, total 1.5(H) 0.1 - 1.2 mg/dL [facility] Protein, pl 8.5 6.5 - 8.5 g/dL [facility] Albumin 5.1(H) 3.5 - 5.0 g/dL [facility] Alk phos 99 40 - 130 Units/L [facility] ALT 19 7 - 55 Units/L [facility] AST 21 10 - 50 Units/L [facility] Blood 05/21/2024 3:41 PM MERCANTILE AGENT 05/21/2024 4:03 PM MERCANTILE AGENT Marcus Amaya MD LAB BLOOD ORDERABLES F inal Result Performing Organization Address City/State/[facility] Co de Phone Number [facility] Department [place] [address] * ECG 12-LEAD (05/21/2024 2:24 PM MERCANTILE AGENT) Narrative [facility] - 05/21/2024 2:24 PM MERCANTILE AGENT Huy Mack MD ? 05/21/2024 ??2:27 PM [...] the ED Huy Mack MD 05/21/24 1427 us Marcus Amaya MD ECG ORDERABLES Final Result [facility] * ECG 12-LEAD (05/19/2024 11:55 PM MERCANTILE AGENT) Narrative [facility] - 05/19/2024 11:55 PM MERCANTILE AGENT Deniz Huitron MD ? 05/19/2024 11:56 PM [...] MD ECG ORDERABLES Final Result [facility] * XR Chest PA Lateral 2 Views (05/19/2024 10:34 PM MERCANTILE AGENT) Anatomical Region Laterality Modality Body, Chest N/A Computed Radiogr aphy 05/19/2024 10:4 3 PM MERCANTILE AGENT Impressions 05/20/2024 9:03 AM MERCANTILE AGENT Comparison is made to 07/05/2023. Thoracic aorta [...] Collins Wills M.D. Narrative 05/20/2024 9:03 AM MERCANTILE AGENT EXAMINATION: 2 view chest radiograph Procedure Note [...] CTA Chest Abdomen Pelvis (05/19/2024 10:20 PM MERCANTILE AGENT) Anatomical Region Laterality Modality Body N/A Computed Tomogra phy 05/19/2024 10:5 1 PM MERCANTILE AGENT Impressions 05/20/2024 9:06 AM MERCANTILE AGENT 1. ??Unchanged thoracoabdominal aortic dissection status post [...] Collins Wills M.D. Narrative 05/20/2024 9:06 AM MERCANTILE AGENT EXAMINATION: ??CT ANGIOGRAPHY OF THE CHEST, ABDOMEN [...] by: Collins Wills M.D. Cristobal Waldrop MD IM CT PROCEDURES F inal Result * Troponin I high-sensitivity series (baseline, 2hr, 4hr, 6hr) (05/19/2024 9:12 PM MERCANTILE AGENT) Trop I hs 4 <=35 ng/L Comment: Interpretive Data For further hscTnI resources including the diagnostic algorithm and an aid in interpretation, copy and paste this link: [email or web address].testcatalog.org/show/[email or web address] Current Interpretive Data last revised 2019. Blood 05/19/2024 9:12 PM MERCANTILE AGENT 05/19/2024 9:28 PM MERCANTILE AGENT us Cristobal Waldrop MD LAB BLOOD ORDERABLE S Final Result Performing Organization Address City/[facility]/ZIP Co de Phone Number JAIRON [facility] [place] [address] * eGFR (05/19/2024 9:12 PM MERCANTILE AGENT) eGFR 85 >=60 mL/min/1. 73 m2 Comment: [...] last reviewed 2021. Blood 05/19/2024 9:12 PM MERCANTILE AGENT 05/19/2024 9:28 PM MERCANTILE AGENT us Cristobal Waldrop MD LAB BLOOD ORDERABLE S Final Result Performing Organization Address City/[facility]/ZIP Co de Phone Number JAIRON [facility] [place] [address] * (ABNORMAL) Differential, auto (05/19/2024 9:12 PM MERCANTILE AGENT) Neutrophil abs 7.6(H) 1.5 - 6.5 K/cumm Imm gran abs 0.1 0.0 - 0.1 K/cumm [facility] Lymphocyte abs 0.9 0.8 - 3.3 K/cumm [facility] Monocyte abs 0.5 0.2 - 0.8 K/cumm [facility] Eosinophil abs 0.0 0.0 - 0.5 K/cumm [facility] Basophil abs 0.0 0.0 - 0.1 K/cumm [facility] Neutrophil pct 84.3 % [facility] Comment: Interpretive Data Percent cell count reference ranges are not reported, since discordance with absolute values may lead to misinterpretation of CBC data. Current Interpretive Data was last revised on 2017. Imm gran pct 0.7 % [facility] Comment: Interpretive Data Percent cell count reference ranges are not reported, since discordance with absolute values may lead to misinterpretation of CBC data. Current Interpretive Data was last revised on 2017. Lymphocyte pct 9.4 % [facility] Comment: Interpretive Data Percent cell count reference ranges are not reported, since discordance with absolute values may lead to misinterpretation of CBC data. Current Interpretive Data was last revised on 2017. Monocyte pct 5.3 % [facility] Comment: Interpretive Data Percent cell count reference ranges are not reported, since discordance with absolute values may lead to misinterpretation of CBC data. Current Interpretive Data was last revised on 2017. Eosinophil pct 0.1 % [facility] Comment: Interpretive Data Percent cell count reference ranges are not reported, since discordance with absolute values may lead to misinterpretation of CBC data. Current Interpretive Data was last revised on 2017. Basophil pct 0.2 % [facility] Comment: Interpretive Data Percent cell count reference ranges are not reported, since discordance with absolute values may lead to misinterpretation of CBC data. Current Interpretive Data was last revised on 2017. Blood 05/19/2024 9:12 PM MERCANTILE AGENT 05/19/2024 9:28 PM MERCANTILE AGENT Cristobal Waldrop MD LAB BLOOD ORDERABLE S Final Result Performing Organization Address [facility] Co de Phone Number [facility] [place] [address] * CBC with auto differential (05/19/2024 9:12 PM MERCANTILE AGENT) [facility] WBC 9.0 3.8 - 9.9 K/cumm Hgb 13.7 13.0 - 17.5 g/dL [facility] Hct 39.7 38.9 - 50.3 % [facility] Plt 293 150 - 400 K/cumm [facility] MPV 9.2 9.1 - 12.3 fL [facility] RBC 4.53 4.30 - 5.80 M/cumm [facility] MCV 87.6 81.3 - 96.4 fL [facility] MCH 30.2 27.1 - 33.3 pg [facility] MCHC 34.5 32.3 - 35.7 g/dL [facility] RDW CV 13.2 11.1 - 14.9 % [facility] RDW SD 42.5 35.7 - 48.1 fL [facility] NRBC abs 0.00 0.00 - 0.01 K/cumm [facility] Blood 05/19/2024 9:12 PM MERCANTILE AGENT 05/19/2024 9:28 PM MERCANTILE AGENT Cristobal Waldrop MD LAB BLOOD ORDERABLE S Final Result Performing Organization Address City/[facility]/ZIP Co de Phone Number [facility] [place] [address] * aPTT (05/19/2024 9:12 PM MERCANTILE AGENT) [facility] aPTT 34 28 - 38 sec Comment: Interpretive Data Heparin therapeutic range: 66.0 - 100.0 seconds. Range based on correlation with therapeutic heparin activity range of 0.3 - 0.7 Units/mL. Current interpretive data was last revised on 2023. Blood 05/19/2024 9:12 PM MERCANTILE AGENT 05/19/2024 9:32 PM MERCANTILE AGENT Cristobal Waldrop MD LAB BLOOD ORDERABLE S Final Result Performing Organization Address [facility] Co de Phone Number [facility] [place] [address] * (ABNORMAL) Protime-INR (05/19/2024 9:12 PM MERCANTILE AGENT) PT 14.2(H) 9.7 - 13.0 sec INR 1.31(H) 0.90 - 1.20 [facility] Comment: Interpretive data Oral anticoagulant therapeutic ranges: Venous thromboembolism prophylaxis or treatment: 2.0-3.0 CARDIOLOGY Standard range: 2.0-3.0 High-intensity range: 2.5-3.5 Refer to indication-specific guidelines for appropriate target ranges for prosthetic heart valve replacement. Current interpretive data was last revised on 2019. Blood 05/19/2024 9:12 PM MERCANTILE AGENT 05/19/2024 9:32 PM MERCANTILE AGENT Cristobal Waldrop MD LAB BLOOD ORDERABLE S Final Result Performing Organization Address [facility] Co de Phone Number [facility] [place] [address] * Type and screen (05/19/2024 9:12 PM MERCANTILE AGENT) Ellen, indirect Negative ABO Rh A Positive [facility] Blood 05/19/2024 9:12 PM MERCANTILE AGENT 05/19/2024 9:22 PM MERCANTILE AGENT Narrative [facility] - 05/19/2024 10:07 PM MERCANTILE AGENT Has the patient had Daratumumab or Isatuximab in the past 6 months?->Unknown us Cristobal Waldrop MD LAB BLOOD BANK TEST ORDERABLES Final Result [facility] Department [place] [address] * (ABNORMAL) Comprehensive metabolic panel (05/19/2024 9:12 PM MERCANTILE AGENT) Sodium 139 135 - 145 mmol/L Potassium, pl 3.9 3.3 - 4.9 mmol/L [facility] Chloride 100 97 - 110 mmol/L [facility] CO2 21(L) 22 - 32 mmol/L [facility] Anion gap 18(H) 2 - 15 mmol/L [facility] BUN 18 6 - 25 mg/dL [facility] Creatinine 1.17 0.80 - 1.30 mg/dL [facility] Glucose 108 70 - 199 mg/dL [facility] [...] 2022. Calcium 10.2 8.5 - 10.3 mg/dL [facility] Bilirubin, total 1.2 0.1 - 1.2 mg/dL [facility] Protein, pl 8.7(H) 6.5 - 8.5 g/dL [facility] Albumin 5.1(H) 3.5 - 5.0 g/dL [facility] Alk phos 105 40 - 130 Units/L [facility] ALT 23 7 - 55 Units/L [facility] AST 18 10 - 50 Units/L [facility] Blood 05/19/2024 9:12 PM MERCANTILE AGENT 05/19/2024 9:28 PM MERCANTILE AGENT us Cristobal Waldrop MD LAB BLOOD ORDERABLE S Final Result [facility] Department [place] [address] * Hepatitis C antibody Blood (09/06/2023 11:15 AM CDT) Hep C Ab Nonreactive Nonreactive Comment:Antibodies to HCV no t detected. Does NOT exclude the possibility of recent exposure to HCV. Current interpretive data was last revised on 22 Blood 09/06/2023 11:1 5 AM CDT 09/06/2023 11:34 AM CDT Clyde Nelson MD LAB MICROBIOLOGY - GENERAL ORDLilian LOPEZ Edited Result - Final Performing Organization Address City/[facility] Co de Phone Number [facility] Department [place] [address] from Last 3 Months or Most Recently Relevant to Health Maintenance Insurance [facility] Advance Directives For more information, please contact: [phone] * Full Code (Latest Code Status on [...] Healthcare Agent Relationshi p Communication Meron Blankenship [facility] Health Care Agent Care Teams Head Athletic Trainer/Strength Coach Relationship Specialty Start Date End Date Ronak Painting PA [address] [place] [address] PCP - General Physician Hands Assembler 06/14/24 Leo Manzano MD [address] [facility] [id number] [place] [address] Surgeon Vascular Surgery 05/16/23
--- OUTSIDE RECORDS SUMMARY | 2024-07-03 10:01 | XMS_ITS | Clinical Summary ---
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 Gender Identity Not on file Sexual Orientation Not on file Last Filed Vital Signs Vital Sign Reading Time Taken Comments Blood Pressure 142/100 08/07/2015 2:53 PM CARNALLITE PLANT OPERATOR Pulse - - Temperature 36.7 ??C (98 ??F) 08/07/2015 10:33 AM CARNALLITE PLANT OPERATOR Respiratory Rate 16 08/07/2015 2:53 PM CARNALLITE PLANT OPERATOR Oxygen Saturation 100% 08/07/2015 2:53 PM CARNALLITE PLANT OPERATOR Inhaled Oxygen Concentration - - Weight 83.9 kg (185 lb) 08/07/2015 10:33 AM CARNALLITE PLANT OPERATOR Height 177.8 cm (5' 10 ) 08/07/2015 10:33 AM CARNALLITE PLANT OPERATOR Body Mass Index 26.54 08/07/2015 10:33 AM CARNALLITE PLANT OPERATOR Plan of Treatment Health Maintenance Due Date Last Done Comments DTAP/TDAP/TD VACCINES (1 - Tdap) 2011 HEPATITIS B VACCINES (1 of 3 - 19+ 3-dose series) 2011 INFLUENZA VACCINE (#1) 2023 HPV VACCINES Aged Out No longer eligi ble based on patient's age to complete this topic Insurance Care Teams Junior Copywriter Relationship Specialty Start Date End Date [facility], External Provider [address] [place] [address] PCP - General 08/07/15
--- OUTSIDE RECORDS SUMMARY | 2024-07-03 10:01 | XMS_ITS | Referral Summary ---
Author Organization [facility] Address [address] [address] Care Team Providers Care Patrol Supervisor Name Role Phone Unavailable Primary Care Provider Unavailabl e Source Comments [facility],non-owned Affiliates and Associated Physician Practices is amultiple site organization consisting of ambulatory clinics and hospital sitesin [place], [place], [place] and [place]. This disclosure is being madepursuant to the Care Everywhere program and may not contain all information available regarding this patient. Last updated 18.[facility] [employer] Social History Tobacco Use Types Packs/Day Years Used Date Smoking Tobacco: Never Assessed Sex and Gender Information Value Date Recorded Sex Assigned at Not on file Gender Identity Not on file Sexual Orientation Not on file Plan of Treatment Not on file
--- OUTSIDE RECORDS SUMMARY | 2024-07-03 10:01 | XMS_ITS | Patient Health Summary ---
Author Organization [facility] Address [address] [facility] [place] [address] Care Team Providers Care Personal Trainer Name Role Phone Unavailable Primary Care Provider Unavailabl e Note from [facility],non-owned Affiliates and Associated Physician Practices is amultiple site organization consisting of ambulatory clinics and hospital sitesin [place], [place], [place] and [place]. This disclosure is being madepursuant to the Care Everywhere program and may not contain all information available regarding this patient. Last updated 18.[facility] Social History Tobacco Use Types Packs/Day Years Used Date Smoking Tobacco: Never Assessed Sex and Gender Information Value Date Recorded Sex Assigned at Not on file Gender Identity Not on file Sexual Orientation Not on file
--- OUTSIDE RECORDS SUMMARY | 2024-07-03 10:01 | XMS_ITS | Encounter Summary ---
Author Organization [facility] Address [address] [place] [address] Care Team Providers Care Drop Board Worker Name Role Phone Leo Manzano MD Unavailable [phone] Carl Strickland MD Primary Care Provider Ronak Painting Primary Care Provider Encounter Details Date Type Department Care Team (Late st Contact Info) Description 05/25/2024 Documentation [facility] [address] [place] [address] Essie Singh RN Social History Tobacco Use Types Packs/Day Years Used Date Smoking Tobacco: Never Smokeless Tobacco: Never Alcohol Use Standard Drinks/Week Comments Not Currently 0 (1 standard drink = 0.6 oz pur e alcohol) [facility] Utilities Answer Date Recorded In the past 12 months has [employer], gas, oil, or water [a]list games threatened to shut off services in your [...] week 05/24/2024 How often do you attend [facility] or gnosticist services? Never 05/24/2024 Do you belong to any clubs o r organizations such as druze groups, unions, fraternal or athletic groups, or [...] skilled nursing (including now)? Patient declined 10/02/2023 Housing Stability [...] any time in the past 12 m [facility], were you homeless or living in a skilled nursing (including now)? No 05/24/2024 Personal Safety Answer Date Recorded Have you ever been in or are you currently in a harmful physical or emotional relationship or is someone making you feel afraid or unsafe? Denies 05/23/2024 Sex and Gender Information Value Date Recorded Sex Assigned at Not on file Legal Sex Male 3:42 AM [employer] SAWYER Gender Identity Not on file Sexual Orientation Straight 06/12/2023 11 :43 PM HARDWOOD SAWYER documented as of this encounter Plan of Treatment Not on file documented as of this encounter Goals Goal Patient Goal Type Associated Problems Recent Progress Patient-Stated? Author CCM Chronic Pain Care Plan Chronic Care Management No change(06/20 7:42 AM HARDWOOD SAWYER) No Rita Landa, RN Note: Problem: Chronic Pain Goals: 1. Minimize further functional decline 2. Maximize quality of life 3. Control pain Strategies: - Activity/exercise program recommendation - Conservative stepwise pain medicine strategy with multi-disciplinary approach - Recommend healthy lifestyle strategies and compensatory methods as needed documented as of this encounter Visit Diagnoses Not on filedocumented in this encounter Care Teams Drop Board Worker Relationship Specialty Start Date End Date Carl Strickland MD [address] [facility] [address] [place] [address] PCP - General Internal Medicine 06/06/23 06/13/24 Ronak Painting PA [address] [facility] [address] PCP - General Physician E Commerce Developer 06/14/24 Leo Manzano MD [id number] [place] [address] Surgeon Vascular Surgery 05/16/23 documented as of this encounter
--- OUTSIDE RECORDS SUMMARY | 2024-07-03 10:01 | XMS_ITS | Encounter Summary ---
Author Organization [facility] Address [address] [place] [address] Care Team Providers Care Crisis Intervention Counselor Name Role Phone Leo Manzano MD Unavailable [phone] Ronak Painting Primary Care Provider [phone] Reason for Visit * Reason Onset Date Comments PMC Preprocedure 07/02/2024 Encounter Details Date Type Department Care Team (Late st Contact Info) Description 07/02/2024 Telephone Research [facility] [place] [facility] [address] [facility] [address] [place], [place] [id number] Adrianne Adams MD PhD [address] [place] [address] [facility] Preprocedure Social History Tobacco Use Types Packs/Day Years Used Date Smoking Tobacco: Never Smokeless Tobacco: Never Alcohol Use Standard Drinks/Week Comments Not Currently 0 (1 standard drink = 0.6 oz pur e alcohol) [facility] Utilities Answer Date Recorded In the past 12 months has [employer], gas, oil, or water company threatened to [...] often do you attend chur ch or evangelical services? Never 05/24/2024 Do you belong to any clubs o r organizations such as sabianism groups, unions, fraternal or athletic groups, or [...] senior care (including now)? Patient declined 10/02/2023 Housing Stability [...] any time in the past 12 m [facility], were you homeless or living in a senior care (including now)? No 05/24/2024 Personal Safety Answer Date Recorded Have you ever been in or are you currently in a harmful physical or emotional relationship or is someone making you feel afraid or unsafe? Denies 05/23/2024 Sex and Gender Information Value Date Recorded Sex Assigned at Not on file Legal Sex Male 3:42 AM BUS ESCORT Gender Identity Not on file Sexual Orientation Straight 06/12/2023 11 :43 PM BUS ESCORT documented as of this encounter Miscellaneous Notes * Telephone Encounter - Lina Chatterjee RN - 07/02/2024 12:40 PM BUS ESCORT completed ESCORT documented in this encounter Plan of Treatment Not on file documented as of this encounter Goals Goal Patient Goal Type Associated Problems Recent Progress Patient-Stated? Author CCM Chronic Pain Care Plan Chronic Care Management No change(06/20 7:42 AM BUS ESCORT) No Rita Landa, BRIA Note: Problem: Chronic Pain Goals: 1. Minimize further functional decline 2. Maximize quality of life 3. Control pain Strategies: - Activity/exercise program recommendation - Conservative stepwise pain medicine strategy with multi-disciplinary approach - Recommend healthy lifestyle strategies and compensatory methods as needed documented as of this encounter Visit Diagnoses Not on filedocumented in this encounter Care Teams Crisis Intervention Counselor Relationship Specialty Start Date End Date Ronak Painting PA [address] [place] [address] PCP - General Physician Metal Cans Supervisor 06/14/24 Leo Manzano MD [id number] [place] [address] Surgeon Vascular Surgery 05/16/23 documented as of this encounter
--- OUTSIDE RECORDS SUMMARY | 2024-07-03 10:01 | XMS_ITS | Referral Summary ---
Author Organization [facility] Address [address] [place] [address] Care Team Providers Care Shake Splitter Name Role Phone Leo Manzano MD Unavailable [phone] Ronak Painting Primary Care Provider [phone] Encounters Date Type Department Care Team Description 07/02/2024 Telephone [facility] [address] [facility] Advanced Medicine [address] [place] [address] Adrianne Adams MD PhD PMC Preprocedure 06/27/2024 1:00 PM WEB OPERATIONS ADMINISTRATOR Office Visit [facility] Nephrology [address] [facility] [address] [facility] Advanced [facility] 5th [place] [address] [place] [id number] ANGI (acute kidney injury) (HCC) (Primary Dx) 06/20/2024 7:27 AM WEB OPERATIONS ADMINISTRATOR - 06/20/2024 11:59 PM WEB OPERATIONS ADMINISTRATOR Hospital Encounter [facility] [address] [facility] [facility] Advanced [facility] [address] [place] [address] Jeremie Macias MD Yoshida, [place], MD PhD Sacroiliitis (HCC) (Primary Dx); Spondylosis of lumbar region without myelopathy or radiculopathy Discharge Disposition: Discharge to home or self care 06/08/2024 Telephone [facility] Cardiology [address] [facility] [facility] Advanced Medicine 8th [place] [address] [place] [address] Joaquín Abarca MD overdue orders 05/23/2024 7:45 PM WEB OPERATIONS ADMINISTRATOR - 05/29/2024 10:36 AM WEB OPERATIONS ADMINISTRATOR Hospital Encounter [address] [phone] Gonzalez Lamar DO Ohman, John Westley, MD Abdominal pain (Primary Dx) Discharge Disposition: Discharge to home or self care 05/25/[address] [address] Essie Singh RN 05/21/2024 4:17 PM WEB OPERATIONS ADMINISTRATOR - 05/21/2024 8:27 PM [facility] Emergency Department [address] [place] [phone] Marcus Amaya MD Nausea and vomiting, unspecified vomiting type (Primary Dx) Discharge Disposition: Discharge to home or self care 05/19/2024 9:40 PM WEB OPERATIONS ADMINISTRATOR - 05/20/2024 1:34 AM [facility] Emergency Department [address] [place] [phone] Casandra Lock MD Renz, Nicholas Robert, MD Abdominal pain (Primary Dx); Chronic bilateral low back pain without sciatica; Abdominal aortic aneurysm dissection (HCC) Discharge Disposition: Discharge to home or self care 05/16/2024 2:39 PM WEB OPERATIONS ADMINISTRATOR - 05/16/2024 11:59 PM WEB OPERATIONS ADMINISTRATOR Hospital Encounter [facility] [address] [facility] [address] [place] [address] Adrianne Adams MD PhD Sacroiliitis (HCC) (Primary Dx) Discharge Disposition: Discharge to home or self care 04/24/2024 Orders Only [facility] Nephrology [address] [facility] 5th [place] [address] [place] [address] Miguel Dominguez MD ANGI (acute kidney injury) (HCC) (Primary Dx); Primary hypertension; Anemia, unspecified type; Screening for hematuria or proteinuria from Last 3 Months Allergies Active Allergy [...] a week for 7 doses 7 capsule 024 Active hydrocortisone (ANUSOL-HC) 2.5 % rectal cream Insert into the rectum 2 (two) times a day as needed for hemorrhoids 30 g 024 Active Additional Information Patient not taking.Informant: Mother, [...] spasms/discomfo rt) 30 tablet 3 024 Active Additional Information Patient not taking.Reported on [...] 09/27/2023 Dissection of descending thoracic aorta 09/06/19 Back pain at L4-L5 level 08/23/2023 PFO [...] line Assessment & Plan (06/24/2023 12:04 PM WEB OPERATIONS ADMINISTRATOR): - CT without discitis or osteomyelitis on 06/13 - MRI 06/13 also without discitis or osteomyelitis - no narcotic pain medications are required from vascular surgery perspective - Consult pain management team Pseudoaneurysm following procedure ([facility]) Assessment & Plan (06/24/2023 10:40 AM WEB OPERATIONS ADMINISTRATOR): - s/p vascular access - Q4 N/V checks - no current surgical intervention - no activity restrictions, OOB/ ambulate Infrarenal abdominal aortic aneurysm, without ru pture 06/13/2023 Assessment & Plan (06/24/2023 10:41 AM WEB OPERATIONS ADMINISTRATOR): s/p TEVAR on 06/05/23 (graft terminates above celiac take off) 06/11 discharged home; 06/13 Re admitted for worsening back pain, HTN, and subjective fever/chills. - CT 06/13 shows no change in aneurysm, no stent migration, no increase in false lumen perfusion - non operative Polysubstance abuse ([facility]) 06/10/2023 Moderate malnutrition ([facility]) 06/09/2023 Dissection of abdominal aorta ([facility]) 06/03/19 24 Urinary retention 05/16/2023 Assessment & Plan (05/16/2023 10:44 AM WEB OPERATIONS ADMINISTRATOR): Patient with urinary retention requiring straight cath X1 05/15, now voiding without any issues. - Continue Flomax. - Patient requests urology follow up, referral placed. Epistaxis 05/13/2023 Assessment & Plan (05/13/2023 12:42 PM WEB OPERATIONS ADMINISTRATOR): Significant nose bleed in the OR requiring intra-op ENT c/s. DL performed, no other sources of bleeding visualized. ACT post protamine 149. - ENT following - ocean spray tid - no other s/s bleeding Pneumonia 05/13/2023 Assessment & Plan (05/13/2023 12:43 PM WEB OPERATIONS ADMINISTRATOR): Tracheal aspirate 05/05 with Haemophilus Inf - susana(05/04 - 05/10), linezolid (05/04-05/06) HTN (hypertension) 05/13/2023 Assessment & Plan (05/28/2024 8:41 AM WEB OPERATIONS ADMINISTRATOR): BP well controlled. - continue home amlodipine [...] needed Assessment & Plan (06/24/2023 10:41 AM WEB OPERATIONS ADMINISTRATOR): Difficult to control Htn. Dr. Abarca following - Continue amlodipine, lisinopril, coreg, hydralazine - SBP goal 120-140 - VS q 4 hrs and prn Assessment & Plan (06/21/2023 7:57 AM WEB OPERATIONS ADMINISTRATOR): BP stable at present. Recommend discontinuation of the diltiazem and continue amlodipine (as opposed to giving two calcium channel blockers) Assessment & Plan (06/20/2023 8:33 PM WEB OPERATIONS ADMINISTRATOR): BP improving. Recommend continue medications and follow up bp, except recommend discontinuation of the diltiazem as he is already on a calcium channel louie, amlodipine Assessment & Plan (06/18/2023 7:59 AM WEB OPERATIONS ADMINISTRATOR): Patient with continued hypertension. Blood pressure in the right arm levels are improved now in the 130s and 140s. Recommend consideration for adjustment of medications as follows. 1. Add spironolactone 25 mg a day 2. Consider adding clonidine 0.1 mg twice a day Assessment & Plan (06/11/2023 7:50 AM WEB OPERATIONS ADMINISTRATOR): Patient hypertensive. Recommend resuming hydralazine 25 mg 3 times a day. Continue the amlodipine and carvedilol. Follow-up blood pressure. The patient should have follow-up blood pressure when he leaves the hospital as well. Assessment & Plan (06/10/2023 3:48 PM WEB OPERATIONS ADMINISTRATOR): Goal systolic BP 140-180 for one month [...] status Assessment & Plan (06/09/2023 10:54 AM WEB OPERATIONS ADMINISTRATOR): Blood pressure well controlled at present. Medicines are being adjusted. Currently on carvedilol and hydralazine. A want to transition to amlodipine 5 mg a day to wean hydralazine, as tolerated, as 3 times a day medication can be difficult long-term Assessment & Plan (05/13/2023 12:49 PM WEB OPERATIONS ADMINISTRATOR): Hx of uncontrolled HTN, non-compliant to medications. [...] time Assessment & Plan (06/11/2023 7:50 AM WEB OPERATIONS ADMINISTRATOR): Clinically stable. Renal function stable. Blood pressure improved We will recommend genetic testing as an outpatient Assessment & Plan (06/10/2023 3:48 PM WEB OPERATIONS ADMINISTRATOR): Presents with abdominal pain and concern for progression of dissection on CT - 06/05/23: OR s/p TEVAR extension and dissection stent placement - BP management per HTN - pain control - Q4 NV checks, Q2 VS - lovenox DVT ppx - He will f/u with Dr. Abarca as outpatient for genetics testing. Assessment & Plan (06/09/2023 10:54 AM WEB OPERATIONS ADMINISTRATOR): Clinically stable. Renal function stable. Blood pressure improved We will recommend genetic testing as an outpatient Assessment & Plan (05/16/2023 10:45 AM WEB OPERATIONS ADMINISTRATOR): Patient presented on 05/01 with acute Chest [...] 05/01/2023 Assessment & Plan (05/29/2024 7:45 AM WEB OPERATIONS ADMINISTRATOR): 34 y/o M with hx of symptomatic Type B aortic dissection requiring TBE and subsequent extension with TEVAR/dissection stents presents as OSH transfer for significant abdominal pain. No concern for mesenteric ischemia. - c/w impulse control - regular diet - transitioned to oral anti-hypertensive - pain management following. 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 Dilaudid discontinued 05/28. Pain signed off. Assessment & Plan (10/03/2023 2:00 PM CDT): Follows with Dr Abarca Cont antihypertensives Assessment & Plan (06/18/2023 8:00 AM WEB OPERATIONS ADMINISTRATOR): Aortic imaging stable on recent CT scan. Continue blood pressure control. Assessment & Plan (05/02/2023 2:02 PM WEB OPERATIONS ADMINISTRATOR): 32y/o male with uncontrolled HTN who presented to an OSH ER with acute onset shortness of breath, chest pain and back pain. 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 He was transferred to [facility] for further evaluation and treatment. Here, [...] All feel these findings not to be exhibit display representative of a type a dissection, therefore [...] Recorded In the past 12 months has [employer] electric, gas, oil, or water [employer] threatened to shut off services in your [...] often do you attend chur ch or spiritism services? Never 05/24/2024 Do you belong to any clubs o r organizations such as bahai groups, unions, fraternal or athletic groups, or [...] a assisted (including now)? Patient declined 10/02/2023 Housing Stability [...] any time in the past 12 m [facility], were you homeless or living in a assisted (including now)? No 05/24/2024 Personal Safety Answer Date Recorded Have you ever been in or are you currently in a harmful physical or emotional relationship or is someone making you feel afraid or unsafe? Denies 05/23/2024 Sex and Gender Information Value Date Recorded Sex Assigned at Not on file Legal Sex Male 3:42 AM WEB OPERATIONS ADMINISTRATOR Gender Identity Not on file Sexual Orientation Straight 06/12/2023 11 :43 PM WEB OPERATIONS ADMINISTRATOR Last Filed Vital Signs Vital Sign Reading Time Taken Comments Blood Pressure 101/67 06/27/2024 12:49 PM WEB OPERATIONS ADMINISTRATOR Pulse 83 06/27/2024 12:49 PM WEB OPERATIONS ADMINISTRATOR Temperature 36.6 ??C (97.8 ??F) 06/20/2024 7:35 AM CS T Respiratory Rate 15 06/20/2024 8:49 AM WEB OPERATIONS ADMINISTRATOR Oxygen Saturation 96% 06/20/2024 8:49 AM WEB OPERATIONS ADMINISTRATOR Inhaled Oxygen Concentration - - Weight 95.9 kg (211 lb 6.4 oz) 06/27/2024 12:49 PM WEB OPERATIONS ADMINISTRATOR Height 175.3 cm (5' 9 ) 06/27/2024 12:49 PM WEB OPERATIONS ADMINISTRATOR Body Mass Index 31.22 06/27/2024 12:49 PM WEB OPERATIONS ADMINISTRATOR Plan of Treatment Not on file Goals Goal Patient Goal Type Associated Problems Recent Progress Patient-Stated? Author CCM Chronic Pain Care Plan Chronic Care Management No change(06/20 7:42 AM WEB OPERATIONS ADMINISTRATOR) No Rita Landa RN Note: Problem: Chronic Pain Goals: 1. Minimize further functional decline 2. Maximize quality of life 3. Control pain Strategies: - Activity/exercise program recommendation - Conservative stepwise pain medicine strategy with multi-disciplinary approach - Recommend healthy lifestyle strategies and compensatory methods as needed Medical Devices Implanted Type Area Hand Wood Sander Device Identifier Shelf Expiration Date Model / Serial / Lot [employer] Stent Graft Aortic Covered Tag [id number] Eptfe Nitinol [id number] - [id number] - [id number] Implanted:Qty : 1 on 05/02/2023 by Leo Manzano MD at [facility] Graft N/A: Aorta Wl [employer] [id number] 12/07/2025 [id number] / [id number] / [employer] Stent Graft Thoracic Side Branch Tag [id number] Eptfe Nitinol [id number] - [id number] - [id number] Implanted:Qty : 1 on 05/02/2023 by Leo Manzano MD at [facility] Stent Left: Subclavian Wl [employer] [id number] 06/27/2025 [id number] / [id number] / Wl [employer] Graft Stent [employer] Tag L20cm Od37mm Thoracic Active Control [id number] - [id number] - [id number] Implanted:Qty : 1 on 06/05/2023 by Nikhil Samuel MD at [facility] Stent N/A: Descending Thoracic Aorta Wl [employer] [id number] 04/12/2024 [id number] / [employer] Zenith 36mm 20-30mm 16mm 180mm 9 Dissection Introducer Sheath [id number] - [id number] Implanted:Qty : 1 on 06/05/2023 by Nikhil Samuel MD at [facility] Stent N/A: Descending Thoracic Aorta [employer] [id number] 12/20/2025 [id number] / / [id number] [employer] Device Clsr Perclose Prostyle Sut-Mediatd Closure-Repai r Sys 07003-95 - [id number] Implanted:Qty : 3 on 05/02/2023 by Leo Manzano MD at [facility] Vascular Closure Device Left: Common Femoral Artery [employer] [id number] 09/26/2024 [id number] / / [id number] Description:Same lot number [employer] Device Clsr Perclose Prostyle Sut-Mediatd Closure-Repai r Sys 52939-16 - [id number] Implanted:Qty : 1 on 06/05/2023 by Nikhil Samuel MD at [facility] Left: Groin [employer] [id number] 12/27/2024 [id number] / / [id number] [employer] Device Clsr Perclose Prostyle Sut-Mediatd Closure-Repai r Sys 39746-11 - [id number] Implanted:Qty : 1 on 06/05/2023 by Nikhil Samuel MD at [facility] Left: Groin [employer] [id number] 12/27/2024 [id number] / / [id number] [employer] Ron Contour 6fr 26cm Large Inner Lumen Low Profile Bladder Ag Taper Latex Free 180-223 - [id number] Implanted:Qty : 1 on 09/27/2023 by Marcus Glass MD at [facility] Right: Ureter [employer] 05/16/2026 [id number] / / [id number] [employer] Ron Contour 6fr 26cm Large Inner Lumen Low Profile Bladder Ag Taper Latex Free 180-223 - [id number] Implanted:Qty : 1 on 10/04/2023 by Otoniel Landa MD at [facility] Right: Ureter [employer] 05/16/2026 [id number] / / [id number] Explanted Type Area Hand Wood Sander Device Identifier Shelf Expiration Date Model / Serial / Lot [employer] Inlay [place] 6fr 28cm Pusher Fluoro Marker Atraumatic Insertion Latex Free [id number] - [id number] Implanted:Qty: 1 on 07/04/2023 by Marcus Gamboa MD at [facility] Explanted:Qty: 1 on 07/14/2023 by Stacia Su MD Stent Left: Ureter [employer] [id number] 04/14/2027 [id number] / / [id number] Procedures Procedure Name Priority Date/Time Associated Diagnosis Comments PAIN MGMT IMAGING SI JOINT BILATERAL ARTHROGRPHY Schedule Routine, Read Routine (OP Routine) 06/20/2024 8:41 AM WEB OPERATIONS ADMINISTRATOR Sacroiliitis (HCC) EGFR Timed 05/28/2024 3:36 AM WEB OPERATIONS ADMINISTRATOR BASIC METABOLIC PANEL Timed 05/28/2024 3:36 AM WEB OPERATIONS ADMINISTRATOR CBC WITHOUT DIFFERENTIAL Timed 05/28/2024 3:36 AM WEB OPERATIONS ADMINISTRATOR LIDOCAINE LEVEL Timed 05/28/2024 3:36 AM WEB OPERATIONS ADMINISTRATOR LIDOCAINE LEVEL Timed 05/27/2024 3:29 AM WEB OPERATIONS ADMINISTRATOR TYPE AND SCREEN Timed 05/27/2024 3:29 AM WEB OPERATIONS ADMINISTRATOR EGFR Routine 05/26/2024 4:38 AM WEB OPERATIONS ADMINISTRATOR LIDOCAINE LEVEL Timed 05/26/2024 4:38 AM WEB OPERATIONS ADMINISTRATOR BASIC METABOLIC PANEL Routine 05/26/2024 4:38 AM WEB OPERATIONS ADMINISTRATOR CBC WITHOUT DIFFERENTIAL Routine 05/26/2024 4:38 AM WEB OPERATIONS ADMINISTRATOR EGFR Routine 05/25/2024 4:20 PM WEB OPERATIONS ADMINISTRATOR BASIC METABOLIC PANEL Routine 05/25/2024 4:20 PM WEB OPERATIONS ADMINISTRATOR CBC WITHOUT DIFFERENTIAL Routine 05/25/2024 4:20 PM WEB OPERATIONS ADMINISTRATOR LIDOCAINE LEVEL Routine 05/25/2024 4:20 PM WEB OPERATIONS ADMINISTRATOR CRITICAL CARE Routine 05/25/2024 8:12 AM WEB OPERATIONS ADMINISTRATOR Abdominal pain POCT GLUCOSE DEVICE Routine 05/25/2024 4 :16 AM WEB OPERATIONS ADMINISTRATOR POCT GLUCOSE DEVICE Routine 05/24/2024 1 1:36 PM WEB OPERATIONS ADMINISTRATOR POCT GLUCOSE DEVICE Routine 05/24/2024 8 :50 PM WEB OPERATIONS ADMINISTRATOR CRITICAL CARE Routine 05/24/2024 8:47 PM WEB OPERATIONS ADMINISTRATOR Abdominal pain EGFR Routine 05/24/2024 5:43 PM WEB OPERATIONS ADMINISTRATOR DIFFERENTIAL AUTO Routine 05/24/2024 5:4 3 PM WEB OPERATIONS ADMINISTRATOR LACTATE, WHOLE BLOOD STAT 05/24/2024 5:43 PM WEB OPERATIONS ADMINISTRATOR AMYLASE Routine 05/24/2024 5:43 PM WEB OPERATIONS ADMINISTRATOR PHOSPHORUS Routine 05/24/2024 5:43 PM WEB OPERATIONS ADMINISTRATOR MAGNESIUM Routine 05/24/2024 5:43 PM WEB OPERATIONS ADMINISTRATOR COMPREHENSIVE METABOLIC PANEL Routine 05/24/2024 5:43 PM WEB OPERATIONS ADMINISTRATOR CBC WITH AUTO DIFFERENTIAL Routine 05/24/2024 5:43 PM WEB OPERATIONS ADMINISTRATOR POCT GLUCOSE DEVICE Routine 05/24/2024 3 :52 PM WEB OPERATIONS ADMINISTRATOR POCT GLUCOSE DEVICE Routine 05/24/2024 1 1:06 AM WEB OPERATIONS ADMINISTRATOR POCT GLUCOSE DEVICE Routine 05/24/2024 7 :46 AM WEB OPERATIONS ADMINISTRATOR CRITICAL CARE Routine 05/24/2024 6:15 AM WEB OPERATIONS ADMINISTRATOR Abdominal pain POCT GLUCOSE DEVICE Routine 05/24/2024 3 :23 AM WEB OPERATIONS ADMINISTRATOR POCT GLUCOSE DEVICE Routine 05/23/2024 1 1:04 PM WEB OPERATIONS ADMINISTRATOR EGFR STAT 05/23/2024 8:33 PM WEB OPERATIONS ADMINISTRATOR DIFFERENTIAL AUTO STAT 05/23/2024 8:3 3 PM WEB OPERATIONS ADMINISTRATOR PROTIME-INR STAT 05/23/2024 8:33 PM WEB OPERATIONS ADMINISTRATOR APTT STAT 05/23/2024 8:33 PM WEB OPERATIONS ADMINISTRATOR TYPE AND SCREEN Timed 05/23/2024 8:33 PM WEB OPERATIONS ADMINISTRATOR CBC WITH AUTO DIFFERENTIAL STAT 05/23/2024 8:33 PM WEB OPERATIONS ADMINISTRATOR CREATINE KINASE (CK), TOTAL STAT 05/23/2024 8:33 PM WEB OPERATIONS ADMINISTRATOR LACTATE STAT 05/23/2024 8:33 PM WEB OPERATIONS ADMINISTRATOR CALCIUM, IONIZED STAT 05/23/2024 8:33 PM WEB OPERATIONS ADMINISTRATOR PHOSPHORUS STAT 05/23/2024 8:33 PM WEB OPERATIONS ADMINISTRATOR MAGNESIUM STAT 05/23/2024 8:33 PM WEB OPERATIONS ADMINISTRATOR COMPREHENSIVE METABOLIC PANEL STAT 05/23/2024 8:33 [address] WEB OPERATIONS ADMINISTRATOR CT BODY OUTSIDE REFERENCE Routine 05/23/2024 8:[address]B [address]PERATIONS ADMINISTR[address] CT BODY OUTSIDE CONSULT Routine 05/23/2024 8:18 PM WEB OPERATIONS ADMINISTRATOR POCT GLUCOSE DEVICE Routine 05/23/2024 7 :47 PM WEB OPERATIONS ADMINISTRATOR POCT RAPID HIV ANTIBODY COMMUNITY SCREENING-PAPA ELIGIBLE Routine 05/21/2024 7:35 PM WEB OPERATIONS ADMINISTRATOR OXYCODONE CONFIRMATION, URINE Routine 05/21/2024 5:34 PM WEB OPERATIONS ADMINISTRATOR FENTANYL CONFIRMATION, MS URINE Routine 05/21/2024 5:34 PM WEB OPERATIONS ADMINISTRATOR AMPHETAMINE, URINE, CONFIRMATION Routine 05/21/2024 5:34 PM WEB OPERATIONS ADMINISTRATOR URINALYSIS, MICROSCOPIC ONLY STAT 05/21/2024 5:34 PM WEB OPERATIONS ADMINISTRATOR DRUGS OF ABUSE SCREEN, URINE WITH REFLEX CONFIRMATION Routine 05/21/2024 5:34 PM WEB OPERATIONS ADMINISTRATOR URINALYSIS AND REFLEX TO MICROSCOPIC STAT 05/21/2024 5:34 PM WEB OPERATIONS ADMINISTRATOR SEPSIS LACTATE WITH REFLEX STAT 05/21/2024 4:33 PM WEB OPERATIONS ADMINISTRATOR EGFR STAT 05/21/2024 3:41 PM WEB OPERATIONS ADMINISTRATOR DIFFERENTIAL AUTO STAT 05/21/2024 3:4 1 PM WEB OPERATIONS ADMINISTRATOR LIPASE STAT 05/21/2024 3:41 PM WEB OPERATIONS ADMINISTRATOR COMPREHENSIVE METABOLIC PANEL STAT 05/21/2024 3:41 PM WEB OPERATIONS ADMINISTRATOR CBC WITH AUTO DIFFERENTIAL STAT 05/21/2024 3:41 PM WEB OPERATIONS ADMINISTRATOR ECG 12-LEAD STAT 05/21/2024 2:24 PM WEB OPERATIONS ADMINISTRATOR ECG 12-LEAD STAT 05/19/2024 11:55 PM WEB OPERATIONS ADMINISTRATOR XR CHEST PA LATERAL 2 VIEWS ED 05/19/2024 10:34 PM WEB OPERATIONS ADMINISTRATOR CTA CHEST ABDOMEN PELVIS ED 05/19/2024 10:20 PM WEB OPERATIONS ADMINISTRATOR EGFR STAT 05/19/2024 9:12 PM WEB OPERATIONS ADMINISTRATOR DIFFERENTIAL AUTO Timed 05/19/2024 9:1 2 PM WEB OPERATIONS ADMINISTRATOR TROPONIN I HIGH-SENSITIVITY SERIES (BASELINE, 2HR, 4HR, 6HR) STAT 05/19/2024 9:12 PM WEB OPERATIONS ADMINISTRATOR TYPE AND SCREEN STAT 05/19/2024 9:12 PM WEB OPERATIONS ADMINISTRATOR APTT STAT 05/19/2024 9:12 PM WEB OPERATIONS ADMINISTRATOR PROTIME-INR STAT 05/19/2024 9:12 PM WEB OPERATIONS ADMINISTRATOR COMPREHENSIVE METABOLIC PANEL STAT 05/19/2024 9:12 PM WEB OPERATIONS ADMINISTRATOR CBC WITH AUTO DIFFERENTIAL Timed 05/19/2024 9:12 PM WEB OPERATIONS ADMINISTRATOR HEPATITIS C ANTIBODY Routine 09/06/2023 11:15 AM CDT from Last 3 Months or Most Recently Relevant to Health Maintenance Results * Imaging SI Joint Injection Bilateral (96184) (06/20/2024 8:41 AM WEB OPERATIONS ADMINISTRATOR) Narrative [facility] - 06/20/2024 8:41 AM WEB OPERATIONS ADMINISTRATOR The images from this study are not interpreted by Radiology. ??Please refer to the physician's procedure / OR operative note. us Adrianne Adams MD PhD IMG PAIN MGMT PROCEDURE S Final Result [facility] * eGFR (05/28/2024 3:36 AM WEB OPERATIONS ADMINISTRATOR) eGFR >90 >=60 mL/min/1. 73 m2 Comment: [...] last reviewed 2021. Blood 05/28/2024 3:36 AM WEB OPERATIONS ADMINISTRATOR 05/28/2024 4:30 AM WEB OPERATIONS ADMINISTRATOR us Leo Manzano MD LAB BLOOD ORDERABLES Final Result Performing Organization Address City/[facility]/ZIP Co de Phone Number JAIRON [facility] Department [place] [address] * (ABNORMAL) Lidocaine level (05/28/2024 3:36 AM WEB OPERATIONS ADMINISTRATOR) Lidocaine (Xylocaine) <1.0(L) 1.5 - 5.0 mcg/mL Blood 05/28/2024 3:36 AM WEB OPERATIONS ADMINISTRATOR 05/28/2024 4:30 AM WEB OPERATIONS ADMINISTRATOR us Gonzalez Lamar DO LAB BLOOD ORDERABLES Fin al Result Performing Organization Address City/[facility] Co de Phone Number [facility] Department [place] [address] * (ABNORMAL) CBC without differential (05/28/2024 3:36 AM WEB OPERATIONS ADMINISTRATOR) [facility] WBC 5.0 3.8 - 9.9 K/cumm Hgb 11.7(L) 13.0 - 17.5 g/dL [facility] Hct 35.3(L) 38.9 - 50.3 % [facility] Plt 240 150 - 400 K/cumm [facility] MPV 9.5 9.1 - 12.3 fL [facility] RBC 3.82(L) 4.30 - 5.80 M/cumm [facility] MCV 92.4 81.3 - 96.4 fL [facility] MCH 30.6 27.1 - 33.3 pg [facility] MCHC 33.1 32.3 - 35.7 g/dL [facility] RDW CV 13.3 11.1 - 14.9 % [facility] RDW SD 45.1 35.7 - 48.1 fL [facility] NRBC abs 0.00 0.00 - 0.01 K/cumm [facility] Blood 05/28/2024 3:36 AM WEB OPERATIONS ADMINISTRATOR 05/28/2024 4:32 AM WEB OPERATIONS ADMINISTRATOR Leo Manzano MD LAB BLOOD ORDERABLES Final Result Performing Organization Address City/State/[facility] Co de Phone Number [facility] Department [place] [address] * Basic metabolic panel (05/28/2024 3:36 AM WEB OPERATIONS ADMINISTRATOR) [facility] Sodium 140 135 - 145 mmol/L Potassium, pl 4.0 3.3 - 4.9 mmol/L [facility] Chloride 103 97 - 110 mmol/L [facility] CO2 25 22 - 32 mmol/L [facility] Anion gap 12 2 - 15 mmol/L [facility] [facility] BUN 18 6 - 25 mg/dL [facility] Creatinine 1.10 0.80 - 1.30 mg/dL [facility] Glucose 85 70 - 199 mg/dL [facility] Comment: [...] 2022. Calcium 9.1 8.5 - 10.3 mg/dL [facility] Blood 05/28/2024 3:36 AM WEB OPERATIONS ADMINISTRATOR 05/28/2024 4:30 AM WEB OPERATIONS ADMINISTRATOR Leo Manzano MD LAB BLOOD ORDERABLES Final Result Performing Organization Address City/[facility]/ZIP Co de Phone Number [facility] Department [place] [address] * Lidocaine level (05/27/2024 3:29 AM WEB OPERATIONS ADMINISTRATOR) Lidocaine (Xylocaine) 1.5 1.5 - 5.0 mcg/mL Blood 05/27/2024 3:29 AM WEB OPERATIONS ADMINISTRATOR 05/27/2024 4:21 AM WEB OPERATIONS ADMINISTRATOR Gonzalez Lamar DO LAB BLOOD ORDERABLES Fin al Result Performing Organization Address City/[facility]/ZIP Co de Phone Number [facility] Department [place] [address] * Type and screen (05/27/2024 3:29 AM WEB OPERATIONS ADMINISTRATOR) Ellen, indirect Negative ABO Rh A Positive [facility] Blood 05/27/2024 3:29 AM WEB OPERATIONS ADMINISTRATOR 05/27/2024 4:33 AM WEB OPERATIONS ADMINISTRATOR Narrative [facility] - 05/27/2024 5:33 AM WEB OPERATIONS ADMINISTRATOR Has the patient had Daratumumab or Isatuximab in the past 6 months?->Unknown Moriah Amin NP LAB BLOOD BANK TEST ORDERABLE S Final Result Performing Organization Address [facility] Co de Phone Number JAIRON Mcwilliams [facility] Department [place] [address] * eGFR (05/26/2024 4:38 AM WEB OPERATIONS ADMINISTRATOR) eGFR 86 >=60 mL/min/1. 73 m2 Comment: [...] last reviewed 2021. Blood 05/26/2024 4:38 AM WEB OPERATIONS ADMINISTRATOR 05/26/2024 5:46 AM WEB OPERATIONS ADMINISTRATOR Moriah Amin NP LAB BLOOD ORDERABLES Final Re sult Performing Organization Address [facility] de Phone Number JAIRON Mcwilliams [facility] Department [place] [address] * Lidocaine level (05/26/2024 4:38 AM WEB OPERATIONS ADMINISTRATOR) Pathologist [facility] Lidocaine (Xylocaine) 1.8 1.5 - 5.0 mcg/mL Blood 05/26/2024 4:38 AM WEB OPERATIONS ADMINISTRATOR 05/26/2024 5:46 AM WEB OPERATIONS ADMINISTRATOR Gonzalez Lamar DO LAB BLOOD ORDERABLES Fin al Result [facility] [place] [address] * (ABNORMAL) CBC without differential (05/26/2024 4:38 AM WEB OPERATIONS ADMINISTRATOR) [facility] WBC 5.5 3.8 - 9.9 K/cumm Hgb 11.5(L) 13.0 - 17.5 g/dL [facility] Hct 34.0(L) 38.9 - 50.3 % [facility] Plt 222 150 - 400 K/cumm [facility] MPV 9.7 9.1 - 12.3 fL [facility] RBC 3.67(L) 4.30 - 5.80 M/cumm [facility] MCV 92.6 81.3 - 96.4 fL [facility] MCH 31.3 27.1 - 33.3 pg [facility] MCHC 33.8 32.3 - 35.7 g/dL [facility] RDW CV 13.3 11.1 - 14.9 % [facility] RDW SD 45.5 35.7 - 48.1 fL [facility] NRBC abs 0.00 0.00 - 0.01 K/cumm [facility] Blood 05/26/2024 4:38 AM WEB OPERATIONS ADMINISTRATOR 05/26/2024 5:46 AM WEB OPERATIONS ADMINISTRATOR us Moriah Amin PRINCIPAL SOLUTIONS ARCHITECT LAB BLOOD ORDERABLES Final Re sult [facility] Department [place] [address] * Basic metabolic panel (05/26/2024 4:38 AM WEB OPERATIONS ADMINISTRATOR) [facility] Sodium 141 135 - 145 mmol/L Potassium, pl 3.9 3.3 - 4.9 mmol/L [facility] Chloride 107 97 - 110 mmol/L [facility] CO2 26 22 - 32 mmol/L [facility] Anion gap 8 2 - 15 mmol/L [facility] BUN 15 6 - 25 mg/dL [facility] Creatinine 1.16 0.80 - 1.30 mg/dL [facility] Glucose 78 70 - 199 mg/dL [facility] Comment: [...] 2022. Calcium 8.6 8.5 - 10.3 mg/dL [facility] Blood 05/26/2024 4:38 AM WEB OPERATIONS ADMINISTRATOR 05/26/2024 5:46 AM WEB OPERATIONS ADMINISTRATOR Moriah Amin NP LAB BLOOD ORDERABLES Final Re sult [facility] Department [place] [address] * eGFR (05/25/2024 4:20 PM WEB OPERATIONS ADMINISTRATOR) [facility] eGFR >90 >=60 [...] last reviewed 2021. Blood 05/25/2024 4:20 PM WEB OPERATIONS ADMINISTRATOR 05/25/2024 4:33 PM WEB OPERATIONS ADMINISTRATOR Moriah Amin PRINCIPAL SOLUTIONS ARCHITECT LAB BLOOD ORDERABLES Final Re sult Performing Organization Address [facility] de Phone Number [facility] [place] [address] * Lidocaine level (05/25/2024 4:20 PM WEB OPERATIONS ADMINISTRATOR) Lidocaine (Xylocaine) 2.1 1.5 - 5.0 mcg/mL Blood 05/25/2024 4:20 PM WEB OPERATIONS ADMINISTRATOR 05/25/2024 4:33 PM WEB OPERATIONS ADMINISTRATOR N[facility]ative [facility] - 05/25/2024 5:02 PM WEB OPERATIONS ADMINISTRATOR Draw 24 hours after infusion started. Moriah Amin PRINCIPAL SOLUTIONS ARCHITECT LAB BLOOD ORDERABLES Final Re sult Performing Organization Address City/[facility] Co de Phone Number [facility] [place] [address] * (ABNORMAL) CBC without differential (05/25/2024 4:20 PM WEB OPERATIONS ADMINISTRATOR) [facility] WBC 6.1 3.8 - 9.9 K/cumm Hgb 12.1(L) 13.0 - 17.5 g/dL [facility] Hct 36.3(L) 38.9 - 50.3 % [facility] Plt 246 150 - 400 K/cumm [facility] MPV 9.6 9.1 - 12.3 fL [facility] RBC 4.03(L) 4.30 - 5.80 M/cumm [facility] MCV 90.1 81.3 - 96.4 fL [facility] MCH 30.0 27.1 - 33.3 pg [facility] MCHC 33.3 32.3 - 35.7 g/dL [facility] RDW CV 13.3 11.1 - 14.9 % [facility] RDW SD 44.0 35.7 - 48.1 fL [facility] NRBC abs 0.00 0.00 - 0.01 K/cumm [facility] Blood 05/25/2024 4:20 PM WEB OPERATIONS ADMINISTRATOR 05/25/2024 4:33 PM WEB OPERATIONS ADMINISTRATOR Moriah Amin PRINCIPAL SOLUTIONS ARCHITECT LAB BLOOD ORDERABLES Final Re sult [facility] Department [place] [address] * Basic metabolic panel (05/25/2024 4:20 PM WEB OPERATIONS ADMINISTRATOR) [facility] Sodium 140 135 - 145 mmol/L Potassium, pl 3.9 3.3 - 4.9 mmol/L [facility] Chloride 106 97 - 110 mmol/L [facility] CO2 25 22 - 32 mmol/L [facility] Anion gap 9 2 - 15 mmol/L [facility] BUN 10 6 - 25 mg/dL [facility] Creatinine 0.92 0.80 - 1.30 mg/dL [facility] Glucose [...] 2022. Calcium 8.9 8.5 - 10.3 mg/dL [facility] Blood 05/25/2024 4:20 PM WEB OPERATIONS ADMINISTRATOR 05/25/2024 4:33 PM WEB OPERATIONS ADMINISTRATOR us Moriah Amin NP LAB BLOOD ORDERABLES Final Re sult [facility] Department [place] [address] * Critical Care (05/25/2024 8:12 AM WEB OPERATIONS ADMINISTRATOR) Narrative Rafiq Rodriguez MD - 05/25/2024 8:12 AM WEB OPERATIONS ADMINISTRATOR Moriah Amin NP ? 05/25/2024 ??3:35 PM [...] plan with the patient's team and other medical/instructional consultant staff. This time was in addition to and separate from care provided by other practitioners on this day of service. ?? us Moriah Amin PRINCIPAL SOLUTIONS ARCHITECT IN CLINIC/BEDSIDE ORDERABLES Final Result * POCT glucose (05/25/2024 4:16 AM WEB OPERATIONS ADMINISTRATOR) Glucose, POC 117 70 - 199 mg/dL Blood 05/25/2024 4:16 AM WEB OPERATIONS ADMINISTRATOR 05/25/2024 4:16 AM WEB OPERATIONS ADMINISTRATOR Gonzalez Lamar DO LAB POCT ORDERABLES - DE VICE Final Result Performing Organization Address [facility] Phone Number [facility] [place] [address] * POCT glucose (05/24/2024 11:36 PM WEB OPERATIONS ADMINISTRATOR) Glucose, POC 116 70 - 199 mg/dL Blood 05/24/2024 11:3 6 PM WEB OPERATIONS ADMINISTRATOR 05/24/2024 11:36 PM WEB OPERATIONS ADMINISTRATOR Gonzalez Lamar DO LAB POCT ORDERABLES - DE VICE Final Result Performing Organization Address [facility] Phone Number [facility] [place] [address] * POCT glucose (05/24/2024 8:50 PM WEB OPERATIONS ADMINISTRATOR) Glucose, POC 123 70 - 199 mg/dL Blood 05/24/2024 8:50 PM WEB OPERATIONS ADMINISTRATOR 05/24/2024 8:50 PM WEB OPERATIONS ADMINISTRATOR Gonzalez Lamar DO LAB POCT ORDERABLES - DE VICE Final Result Performing Organization Address [facility] [place] [address] * Critical Care (05/24/2024 8:47 PM WEB OPERATIONS ADMINISTRATOR) Narrative Ag Lemos MD - 05/24/2024 8:47 PM WEB OPERATIONS ADMINISTRATOR Ag Lemos MD ? 05/25/2024 ??6:53 AM [...] plan with the ICU team and other medical/instructional consultant staff, making frequent assessments and decisions [...] Final Result * eGFR (05/24/2024 5:43 PM WEB OPERATIONS ADMINISTRATOR) [facility] eGFR >90 >=60 [...] last reviewed 2021. Blood 05/24/2024 5:43 PM WEB OPERATIONS ADMINISTRATOR 05/24/2024 6:00 PM WEB OPERATIONS ADMINISTRATOR us Gonzalez Lamar DO LAB BLOOD ORDERABLES Fin al Result [facility] Department [place] [address] * Differential, auto (05/24/2024 5:43 PM WEB OPERATIONS ADMINISTRATOR) Neutrophil abs 4.9 1.5 - 6.5 K/cumm Imm gran abs 0.0 0.0 - 0.1 K/cumm [facility] Lymphocyte abs 1.4 0.8 - 3.3 K/cumm [facility] Monocyte abs 0.8 0.2 - 0.8 K/cumm [facility] Eosinophil abs 0.1 0.0 - 0.5 K/cumm [facility] Basophil abs 0.1 0.0 - 0.1 K/cumm [facility] Neutrophil pct 67.4 % [facility] Comment: Interpretive Data Percent cell count reference ranges are not reported, since discordance with absolute values may lead to misinterpretation of CBC data. Current Interpretive Data was last revised on 2017. Imm gran pct 0.4 % [facility] Comment: Interpretive Data Percent cell count reference ranges are not reported, since discordance with absolute values may lead to misinterpretation of CBC data. Current Interpretive Data was last revised on 2017. Lymphocyte pct 19.4 % [facility] Comment: Interpretive Data Percent cell count reference ranges are not reported, since discordance with absolute values may lead to misinterpretation of CBC data. Current Interpretive Data was last revised on 2017. Monocyte pct 11.3 % [facility] Comment: Interpretive Data Percent cell count reference ranges are not reported, since discordance with absolute values may lead to misinterpretation of CBC data. Current Interpretive Data was last revised on 2017. Eosinophil pct 0.8 % [facility] Comment: Interpretive Data Percent cell count reference ranges are not reported, since discordance with absolute values may lead to misinterpretation of CBC data. Current Interpretive Data was last revised on 2017. Basophil pct 0.7 % [facility] Comment: Interpretive Data Percent cell count reference ranges are not reported, since discordance with absolute values may lead to misinterpretation of CBC data. Current Interpretive Data was last revised on 2017. Blood 05/24/2024 5:43 PM WEB OPERATIONS ADMINISTRATOR 05/24/2024 6:00 PM WEB OPERATIONS ADMINISTRATOR us Gonzaelz Lamar DO LAB BLOOD ORDERABLES Fin al Result [facility] Department [place] [address] * (ABNORMAL) CBC with auto differential (05/24/2024 5:43 PM WEB OPERATIONS ADMINISTRATOR) WBC 7.2 3.8 - 9.9 K/cumm Hgb 11.5(L) 13.0 - 17.5 g/dL [facility] Hct 34.7(L) 38.9 - 50.3 % [facility] Plt 233 150 - 400 K/cumm [facility] MPV 9.2 9.1 - 12.3 fL [facility] RBC 3.77(L) 4.30 - 5.80 M/cumm [facility] MCV 92.0 81.3 - 96.4 fL [facility] MCH 30.5 27.1 - 33.3 pg [facility] MCHC 33.1 32.3 - 35.7 g/dL [facility] RDW CV 13.0 11.1 - 14.9 % [facility] RDW SD 43.8 35.7 - 48.1 fL [facility] NRBC abs 0.00 0.00 - 0.01 K/cumm [facility] Blood 05/24/2024 5:43 PM WEB OPERATIONS ADMINISTRATOR 05/24/2024 6:00 PM WEB OPERATIONS ADMINISTRATOR Gonzalez Lamar DO LAB BLOOD ORDERABLES Fin al Result Performing Organization Address City/State/[facility] Co de Phone Number [facility] Department [place] [address] * Lactate, whole blood (05/24/2024 5:43 PM WEB OPERATIONS ADMINISTRATOR) Lactate, bld 0.7 0.7 - 2.0 mmol/L Blood 05/24/2024 5:43 PM WEB OPERATIONS ADMINISTRATOR 05/24/2024 5:50 PM WEB OPERATIONS ADMINISTRATOR Moriah Amin NP LAB BLOOD ORDERABLES Final Re sult Performing Organization Address [facility] Co de Phone Number [facility] Department [place] [address] * Phosphorus (05/24/2024 5:43 PM WEB OPERATIONS ADMINISTRATOR) Phosphorus, pl 2.7 2.3 - 4.5 mg/dL Blood 05/24/2024 5:43 PM WEB OPERATIONS ADMINISTRATOR 05/24/2024 6:00 PM WEB OPERATIONS ADMINISTRATOR Gonzalez Lamar DO LAB BLOOD ORDERABLES Fin al Result Performing Organization Address [facility] Co de Phone Number [facility] Department [place] [address] * Magnesium (05/24/2024 5:43 PM WEB OPERATIONS ADMINISTRATOR) Magnesium 2.0 1.4 - 2.5 mg/dL Blood 05/24/2024 5:43 PM WEB OPERATIONS ADMINISTRATOR 05/24/2024 6:00 PM WEB OPERATIONS ADMINISTRATOR Gonzalez Lamar DO LAB BLOOD ORDERABLES Fin al Result [facility] Department [place] [address] * Amylase (05/24/2024 5:43 PM WEB OPERATIONS ADMINISTRATOR) Pathologist [facility] Amylase 35 30 - 99 Units/L Blood 05/24/2024 5:43 PM WEB OPERATIONS ADMINISTRATOR 05/24/2024 6:00 PM WEB OPERATIONS ADMINISTRATOR Moriah Amin PRINCIPAL SOLUTIONS ARCHITECT LAB BLOOD ORDERABLES Final Re sult Performing Organization Address [facility] de Phone Number [facility] Department [place] [address] * Comprehensive metabolic panel (05/24/2024 5:43 PM WEB OPERATIONS ADMINISTRATOR) [facility] Sodium 140 135 - 145 mmol/L Potassium, pl 3.9 3.3 - 4.9 mmol/L [facility] Chloride 105 97 - 110 mmol/L [facility] CO2 25 22 - 32 mmol/L [facility] Anion gap 10 2 - 15 mmol/L [facility] BUN 6 6 - 25 mg/dL [facility] Creatinine 0.88 0.80 - 1.30 mg/dL [facility] Glucose 86 70 - 199 mg/dL [facility] Comment: [...] 2022. Calcium 8.9 8.5 - 10.3 mg/dL [facility] Bilirubin, total 0.8 0.1 - 1.2 mg/dL [facility] Protein, pl 6.7 6.5 - 8.5 g/dL [facility] Albumin 4.1 3.5 - 5.0 g/dL [facility] Alk phos 81 40 - 130 Units/L [facility] ALT 15 7 - 55 Units/L [facility] AST 17 10 - 50 Units/L [facility] Blood 05/24/2024 5:43 PM WEB OPERATIONS ADMINISTRATOR 05/24/2024 6:00 PM WEB OPERATIONS ADMINISTRATOR Gonzalez Lamar DO LAB BLOOD ORDERABLES Fin al Result Performing Organization Address City/[facility]/ZIP Co de Phone Number [facility] [place] [address] * POCT glucose (05/24/2024 3:52 PM WEB OPERATIONS ADMINISTRATOR) Glucose, POC 84 70 - 199 mg/dL Blood 05/24/2024 3:52 PM WEB OPERATIONS ADMINISTRATOR 05/24/2024 3:52 PM WEB OPERATIONS ADMINISTRATOR Gonzalez Lamar DO LAB POCT ORDERABLES - DE VICE Final Result Performing Organization Address [facility] Co de Phone Number [facility] [place] [address] * POCT glucose (05/24/2024 11:06 AM WEB OPERATIONS ADMINISTRATOR) Glucose, POC 138 70 - 199 mg/dL Blood 05/24/2024 11:0 6 AM WEB OPERATIONS ADMINISTRATOR 05/24/2024 11:06 AM WEB OPERATIONS ADMINISTRATOR Gonzalez Lamar DO LAB POCT ORDERABLES - DE VICE Final Result Performing Organization Address City/[facility]/ZIP Co de Phone Number [facility] [place] [address] * POCT glucose (05/24/2024 7:46 AM WEB OPERATIONS ADMINISTRATOR) Glucose, POC 86 70 - 199 mg/dL Blood 05/24/2024 7:46 AM WEB OPERATIONS ADMINISTRATOR 05/24/2024 7:46 AM WEB OPERATIONS ADMINISTRATOR us Gonzalez Lamar DO LAB POCT ORDERABLES - DE VICE Final Result [facility] Department [place] [address] * Critical Care (05/24/2024 6:15 AM WEB OPERATIONS ADMINISTRATOR) Narrative Rafiq Rodriguez MD - 05/24/2024 6:15 AM WEB OPERATIONS ADMINISTRATOR Moriah Amin NP ? 05/24/2024 ??5:42 PM [...] plan with the ICU team and other medical/instructional consultant staff, making frequent assessments and decisions [...] life-threatening deterioration of the following conditions: ?? Moriah Amin PRINCIPAL SOLUTIONS ARCHITECT IN CLINIC/BEDSIDE ORDERABLES Final Result * POCT glucose (05/24/2024 3:23 AM WEB OPERATIONS ADMINISTRATOR) Glucose, POC 85 70 - 199 mg/dL Blood 05/24/2024 3:23 AM WEB OPERATIONS ADMINISTRATOR 05/24/2024 3:23 AM WEB OPERATIONS ADMINISTRATOR us Gonzalez Lamar DO LAB POCT ORDERABLES - DE VICE Final Result Performing Organization Address [facility] Co fl Phone Number [facility] [place] [address] * POCT glucose (05/23/2024 11:04 PM WEB OPERATIONS ADMINISTRATOR) Glucose, POC 84 70 - 199 mg/dL Blood 05/23/2024 11:0 4 PM WEB OPERATIONS ADMINISTRATOR 05/23/2024 11:04 PM WEB OPERATIONS ADMINISTRATOR us Gonzalez Lamar DO LAB POCT ORDERABLES - DE VICE Final Result Performing Organization Address [facility] [place] [address] * Lactate (05/23/2024 8:33 PM WEB OPERATIONS ADMINISTRATOR) Lactate 0.7 0.7 - 2.0 mmol/L Blood 05/23/2024 8:33 PM WEB OPERATIONS ADMINISTRATOR 05/23/2024 9:39 PM WEB OPERATIONS ADMINISTRATOR us Gonzalez Lamar DO LAB BLOOD ORDERABLES Fin al Result Performing Organization Address [facility] Co fl Phone Number JAIRON [facility] [place] [address] * eGFR (05/23/2024 8:33 PM WEB OPERATIONS ADMINISTRATOR) eGFR >90 >=60 mL/min/1. 73 m2 Comment: [...] last reviewed 2021. Blood 05/23/2024 8:33 PM WEB OPERATIONS ADMINISTRATOR 05/23/2024 9:17 PM WEB OPERATIONS ADMINISTRATOR us Gonzalez Lamar DO LAB BLOOD ORDERABLES Fin al Result [facility] Department [place] [address] * Differential, auto (05/23/2024 8:33 PM WEB OPERATIONS ADMINISTRATOR) Pathologist [facility] Neutrophil abs 3.9 1.5 - 6.5 K/cumm Imm gran abs 0.0 0.0 - 0.1 K/cumm [facility] Lymphocyte abs 1.9 0.8 - 3.3 K/cumm [facility] Monocyte abs 0.8 0.2 - 0.8 K/cumm [facility] Eosinophil abs 0.0 0.0 - 0.5 K/cumm [facility] Basophil abs 0.0 0.0 - 0.1 K/cumm [facility] Neutrophil pct 58.1 % [facility] Comment: Interpretive Data Percent cell count reference ranges are not reported, since discordance with absolute values may lead to misinterpretation of CBC data. Current Interpretive Data was last revised on 2017. Imm gran pct 0.4 % [facility] Comment: Interpretive Data Percent cell count reference ranges are not reported, since discordance with absolute values may lead to misinterpretation of CBC data. Current Interpretive Data was last revised on 2017. Lymphocyte pct 28.1 % [facility] Comment: Interpretive Data Percent cell count reference ranges are not reported, since discordance with absolute values may lead to misinterpretation of CBC data. Current Interpretive Data was last revised on 2017. Monocyte pct 12.4 % [facility] Comment: Interpretive Data Percent cell count reference ranges are not reported, since discordance with absolute values may lead to misinterpretation of CBC data. Current Interpretive Data was last revised on 2017. Eosinophil pct 0.4 % [facility] Comment: Interpretive Data Percent cell count reference ranges are not reported, since discordance with absolute values may lead to misinterpretation of CBC data. Current Interpretive Data was last revised on 2017. Basophil pct 0.6 % [facility] Comment: Interpretive Data Percent cell count reference ranges are not reported, since discordance with absolute values may lead to misinterpretation of CBC data. Current Interpretive Data was last revised on 2017. Blood 05/23/2024 8:33 PM WEB OPERATIONS ADMINISTRATOR 05/23/2024 9:29 PM WEB OPERATIONS ADMINISTRATOR Gonzalez Lamar DO LAB BLOOD ORDERABLES Fin al Result Performing Organization Address [facility] Co de Phone Number [facility] Department [place] [address] * (ABNORMAL) Calcium, ionized (05/23/2024 8:33 PM WEB OPERATIONS ADMINISTRATOR) Calcium, Ionized 4.48(L) 4.50 - 5.10 mg/dL Blood 05/23/2024 8:33 PM WEB OPERATIONS ADMINISTRATOR 05/23/2024 9:17 PM WEB OPERATIONS ADMINISTRATOR Gonzalez Lamar DO LAB BLOOD ORDERABLES Fin al Result Performing Organization Address [facility] Co de Phone Number [facility] Department [place] [address] * (ABNORMAL) CBC with auto differential (05/23/2024 8:33 PM WEB OPERATIONS ADMINISTRATOR) [facility] WBC 6.8 3.8 - 9.9 K/cumm Hgb 11.4(L) 13.0 - 17.5 g/dL [facility] Hct 33.7(L) 38.9 - 50.3 % [facility] Plt 237 150 - 400 K/cumm [facility] MPV 9.5 9.1 - 12.3 fL [facility] RBC 3.80(L) 4.30 - 5.80 M/cumm [facility] MCV 88.7 81.3 - 96.4 fL [facility] MCH 30.0 27.1 - 33.3 pg [facility] MCHC 33.8 32.3 - 35.7 g/dL [facility] RDW CV 13.0 11.1 - 14.9 % [facility] RDW SD 42.2 35.7 - 48.1 fL [facility] NRBC abs 0.00 0.00 - 0.01 K/cumm [facility] Blood 05/23/2024 8:33 PM WEB OPERATIONS ADMINISTRATOR 05/23/2024 9:29 PM WEB OPERATIONS ADMINISTRATOR Gonzalez Lamar DO LAB BLOOD ORDERABLES Fin al Result [facility] Department [place] [address] * aPTT (05/23/2024 8:33 PM WEB OPERATIONS ADMINISTRATOR) [facility] aPTT 31 28 - 38 sec Comment: Interpretive Data Heparin therapeutic range: 66.0 - 100.0 seconds. Range based on correlation with therapeutic heparin activity range of 0.3 - 0.7 Units/mL. Current interpretive data was last revised on 2023. Blood 05/23/2024 8:33 PM WEB OPERATIONS ADMINISTRATOR 05/23/2024 9:20 PM WEB OPERATIONS ADMINISTRATOR Gonzalez Lamar DO LAB BLOOD ORDERABLES Fin al Result Performing Organization Address City/[facility]/ZIP Co de Phone Number [facility] [place] [address] * (ABNORMAL) Protime-INR (05/23/2024 8:33 PM WEB OPERATIONS ADMINISTRATOR) PT 14.6(H) 9.7 - 13.0 sec INR 1.34(H) 0.90 - 1.20 [facility] Comment: Interpretive data Oral anticoagulant therapeutic ranges: Venous thromboembolism prophylaxis or treatment: 2.0-3.0 CARDIOLOGY Standard range: 2.0-3.0 High-intensity range: 2.5-3.5 Refer to indication-specific guidelines for appropriate target ranges for prosthetic heart valve replacement. Current interpretive data was last revised on 2019. Blood 05/23/2024 8:33 PM WEB OPERATIONS ADMINISTRATOR 05/23/2024 9:20 PM WEB OPERATIONS ADMINISTRATOR Gonzalez Lamar DO LAB BLOOD ORDERABLES Fin al Result Performing Organization Address City/[facility]/ZIP Co de Phone Number [facility] [place] [address] * Type and screen (05/23/2024 8:33 PM WEB OPERATIONS ADMINISTRATOR) Ellen, indirect Negative ABO Rh A Positive [facility] Blood 05/23/2024 8:33 PM WEB OPERATIONS ADMINISTRATOR 05/23/2024 9:31 PM WEB OPERATIONS ADMINISTRATOR Narrative [facility] - 05/23/2024 10:36 PM WEB OPERATIONS ADMINISTRATOR Has the patient had Daratumumab or Isatuximab in the past 6 months?->Unknown Moriah Amin [employer] ARCHITECT LAB BLOOD BANK TEST ORDERABLE S Final Result Performing Organization Address City/[facility]/ZIP Co de Phone Number [facility] [place] [address] * Phosphorus (05/23/2024 8:33 PM WEB OPERATIONS ADMINISTRATOR) [facility] Phosphorus, pl 2.5 2.3 - 4.5 mg/dL Blood 05/23/2024 8:33 PM WEB OPERATIONS ADMINISTRATOR 05/23/2024 9:17 PM WEB OPERATIONS ADMINISTRATOR Gonzalez Lamar DO LAB BLOOD ORDERABLES Fin al Result Performing Organization Address [facility] de Phone Number [facility] Department [place] [address] * Magnesium (05/23/2024 8:33 PM WEB OPERATIONS ADMINISTRATOR) [facility] Magnesium 2.0 1.4 - 2.5 mg/dL Blood 05/23/2024 8:33 PM WEB OPERATIONS ADMINISTRATOR 05/23/2024 9:17 PM WEB OPERATIONS ADMINISTRATOR Gonzalez Lamar DO LAB BLOOD ORDERABLES Fin al Result Performing Organization Address [facility] de Phone Number [facility] [place] [address] * Creatine kinase (CK), total (05/23/2024 8:33 PM WEB OPERATIONS ADMINISTRATOR) [facility] CK 159 40 - 300 Units/L Blood 05/23/2024 8:33 PM WEB OPERATIONS ADMINISTRATOR 05/23/2024 9:17 PM WEB OPERATIONS ADMINISTRATOR Gonzalez Lamar DO LAB BLOOD ORDERABLES Fin al Result Performing Organization Address [facility] de Phone Number [facility] [place] [address] * (ABNORMAL) Comprehensive metabolic panel (05/23/2024 8:33 PM WEB OPERATIONS ADMINISTRATOR) [facility] Sodium 141 135 - 145 mmol/L Potassium, pl 3.2(L) 3.3 - 4.9 mmol/L [facility] Chloride 105 97 - 110 mmol/L [facility] CO2 25 22 - 32 mmol/L [facility] Anion gap 11 2 - 15 mmol/L [facility] BUN 11 6 - 25 mg/dL [facility] Creatinine 1.03 0.80 - 1.30 mg/dL [facility] Glucose 84 70 - 199 mg/dL [facility] Comment: [...] 2022. Calcium 9.0 8.5 - 10.3 mg/dL [facility] Bilirubin, total 1.2 0.1 - 1.2 mg/dL [facility] Protein, pl 7.0 6.5 - 8.5 g/dL [facility] Albumin 4.2 3.5 - 5.0 g/dL [facility] Alk phos 83 40 - 130 Units/L [facility] ALT 15 7 - 55 Units/L [facility] AST 16 10 - 50 Units/L [facility] Blood 05/23/2024 8:33 PM WEB OPERATIONS ADMINISTRATOR 05/23/2024 9:17 PM WEB OPERATIONS ADMINISTRATOR Gonzalez Lamar DO LAB BLOOD ORDERABLES Fin al Result [facility] Department [place] [address] * CT Body Outside Reference (05/23/2024 8:22 PM WEB OPERATIONS ADMINISTRATOR) Impressions [facility] - 05/23/2024 8:22 PM WEB OPERATIONS ADMINISTRATOR These images are for Reference purposes only and have not been reviewed by [facility] Radiology. ??There will be no report generated by a [facility] Radiologist. Narrative [facility] - 05/23/2024 8:22 PM WEB OPERATIONS ADMINISTRATOR EXAMINATION: ??Images For Reference Purposes Only Gadiel Ireland MD IMG CT PROCEDURES Final Result [facility] * CT Body Outside Consult (05/23/2024 8:18 PM WEB OPERATIONS ADMINISTRATOR) Anatomical Region Laterality Modality Body N/A Computed Tomogra phy 05/24/2024 8:05 AM WEB OPERATIONS ADMINISTRATOR Impressions 05/24/2024 8:05 AM WEB OPERATIONS ADMINISTRATOR 1. ??Unchanged thoracoabdominal aortic dissection status post [...] images may or may not represent the [place] source data set and thus may contain changes that may lower the accuracy of this second-opinion interpretation. Electronically signed by: Shahrzad Zimmerman M.D. Narrative 05/24/2024 8:05 AM WEB OPERATIONS ADMINISTRATOR EXAMINATION: RADIOLOGY CONSULTATION ON OUTSIDE IMAGING STUDY STUDY INITIALLY PERFORMED: 05/23/2024 at [place]. TYPE OF STUDY: Multiple CT images of [...] IMAGING STUDY STUDY INITIALLY PERFORMED: 05/23/2024 at [place]. TYPE OF STUDY: Multiple CT images of [...] images may or may not represent the [place] source data set and thus may contain changes that may lower the accuracy of this second-opinion interpretation. Electronically signed by: Shahrzad Zimmerman M.D. Gadiel Ireland MD IMG CT PROCEDURES Final Result * POCT glucose (05/23/2024 7:47 PM WEB OPERATIONS ADMINISTRATOR) Glucose, POC 80 70 - 199 mg/dL Blood 05/23/2024 7:47 PM WEB OPERATIONS ADMINISTRATOR 05/23/2024 7:47 PM WEB OPERATIONS ADMINISTRATOR Gonzalez Lamar DO LAB POCT ORDERABLES - DE VICE Final Result [facility] Department [place] [address] * POCT Rapid HIV Antibody Community Screening-[place] Eligible (05/21/2024 7:35 PM WEB OPERATIONS ADMINISTRATOR) Rapid HIV, POC Negative Negative Lot Number [id number] QC Control Line Acceptable Blood 05/21/2024 7:35 PM WEB OPERATIONS ADMINISTRATOR Marcus Amaya MD POINT OF CARE TEST ORD ERABLES Final Result * (ABNORMAL) Oxycodone Confirmation, Urine (05/21/2024 5:34 PM WEB OPERATIONS ADMINISTRATOR) Oxycodone Conf, Ur Confirmed Positive(A) CutOff 50 [...] needed. Performance characteristics were determined by the [facility] in a manner consistent with CLIA requirement and has not been cleared or approved by the U.S. Food and Drug Administration. Current interpretive data was last revised 2020. Urine 05/21/2024 5:34 PM WEB OPERATIONS ADMINISTRATOR 05/21/2024 5:46 PM WEB OPERATIONS ADMINISTRATOR Marcus Amaya MD LAB URINE ORDERABLES F inal Result [facility] Department [place] [address] * (ABNORMAL) Fentanyl Confirmation, Urine (05/21/2024 5:34 PM WEB OPERATIONS ADMINISTRATOR) Fentanyl Conf, Ur Confirmed Positive(A) Cutoff 0.3ng/mL Acetylfentanyl Conf, Ur Does Not Confirm Cutoff 1 ng/mL [facility] Acrylfentanyl Conf, Ur Does Not Confirm Cutoff 1 ng/mL [facility] Furanylfentanyl Conf, Ur Does Not Confirm Cutoff 1 ng/mL [facility] Fentanyl Metabolite (Norfentanyl) Conf, Ur Confirmed Positive(A) CutOff 5 ng/mL [facility] Xylazine MS Does Not Confirm Cutoff 1 [...] needed. Performance characteristics were determined by the [facility] in a manner consistent with CLIA requirement and has not been cleared or approved by the U.S. Food and Drug Administration. Current interpretive data was last revised 2020. Urine 05/21/2024 5:34 PM WEB OPERATIONS ADMINISTRATOR 05/21/2024 5:46 PM WEB OPERATIONS ADMINISTRATOR us Marcus Amaya MD LAB URINE ORDERABLES F inal Result [facility] Department [place] [address] * (ABNORMAL) Drugs of Abuse Screen, Urine with Reflex Confirmation (05/21/2024 5:34 PM WEB OPERATIONS ADMINISTRATOR) Amphetamine, ur Screen Positive, presumptive (A) CutOff [...] Screen Positive, presumptive (A) CutOff 100ng/mL [facility] Comment: Interpretive Data - Benzodiazepines: ??Samples containing greater than 100 ng/mL nordiazepam or other cross-reacting compounds are reported as positive. False positive and false negative results are possible. Confirmatory testing required for definitive results. Current Interpretive Data was last reviewed 2022. Cannabinoids, ur Screen Positive, presumptive (A) CutOff 50 ng/mL [facility] Comment: Interpretive Data - Cannabinoids: ??Samples containing greater than 50 ng/mL delta-9 THC -COOH or other cross-reacting compounds are reported as positive. ??False positive and false negative results are possible. ??Confirmatory testing required for definitive results. Current Interpretive Data was last reviewed 2022. Cocaine, ur Not Detected CutOff 150ng/mL [facility] Comment: Interpretive Data - Cocaine: ??Samples containing greater than 150 ng/mL benzoylecgonine or other cross-reacting compounds are reported as positive. False positive and false negative results are possible. Confirmatory testing required for definitive results. Current Interpretive Data was last reviewed 2022. Fentanyl, Ur Screen Positive, presumptive (A) CutOff 5 ng/mL [facility] Comment: Interpretive Data - Fentanyl: ?? Samples containing greater than 5 ng/mL norfentanyl, fentanyl, or other cross-reacting fentanyl compounds are reported as positive. False positive and false negative results are possible. Confirmatory testing required for definitive results. Current Interpretive Data was last reviewed 2023. Methadone, ur Not Detected CutOff 300ng/mL [facility] Comment: Interpretive Data - Methadone: ??Samples containing greater than 300 ng/mL d,l-methadone or other cross-reacting compounds are reported as positive. ??False positive and false negative results are possible. Confirmatory testing required for definitive results. Current Interpretive Data was last reviewed 2022. Opiates, ur Not Detected CutOff 300ng/mL [facility] Comment: Interpretive Data - Opiates: ??Samples containing greater than 300 ng/mL morphine or other cross-reacting compounds are reported as positive. ??False positive and false negative results are possible. Confirmatory testing required for definitive results. Current Interpretive Data was last reviewed 2022. Oxycodone, ur Screen Positive, presumptive (A) CutOff 100ng/mL [facility] Comment: Interpretive Data - Oxycodone: ??Samples containing greater than 100 ng/mL oxycodone or other cross-reacting compounds are reported as ??positive. ??False positive and false negative results are possible. Confirmatory testing required for definitive results. Current Interpretive Data was last reviewed 2022. Phencyclidine, ur Not Detected CutOff 25 ng/mL [facility] Comment: Interpretive Data - Phencyclidine: ??Samples containing greater than 25 ng/mL phencyclidine or other cross-reacting compounds are reported as positive. ??False positive and false negative results are possible. Confirmatory testing required for definitive results. Current Interpretive Data was last reviewed 2022. Urine Creatinine 357 mg/dL [facility] Comment: Interpretive Data Urine Creatinine: < 10 mg/dL is extremely dilute = or > 10 but < 20 mg/dL is dilute = or > 20 mg/dL is normal Current Interpretive Data was last revised on 2017. Urine 05/21/2024 5:34 PM WEB OPERATIONS ADMINISTRATOR 05/21/2024 5:46 PM WEB OPERATIONS ADMINISTRATOR Narrative [facility] - 05/21/2024 6:16 PM WEB OPERATIONS ADMINISTRATOR Drug of Abuse screening is performed by immunoassay for medical purposes only. ??This is not to be used for Pain Management purposes. ??If Detected, confirmation testing will be performed for Amphetamines, Cocaine, Fentanyl, Methadone, Opiates, Oxycodone or Phencyclidine. Marcus Amaya MD LAB URINE ORDERABLES F inal Result [facility] Department [place] [address] * (ABNORMAL) Urinalysis reflex to microscopic (05/21/2024 5:34 PM WEB OPERATIONS ADMINISTRATOR) Color, ur Yellow Yellow Clarity, ur Clear Clear [facility] Specific gravity, ur 1.032(H) 1.003 - 1.030 [facility] pH, urine 6.0 [facility] Comment: Interpretive Data ? Urine pH is affected by diet, medications, systemic acid-base disturbances, and renal tubular function. ??pH may affect urinary stone formation. ??For example, urine pH below 6.0 may help reduce the tendency for calcium phosphate stones and pH greater than 6.0 may reduce the tendency for uric acid stone formation. Source: [employer] Current Interpretive Data was last revised on 2017 Protein, ur ql 2+(A) Negative [facility] Glucose, ur ql Negative Negative [facility] Ketones, ur 1+(A) Negative [facility] Bilirubin, ur Negative Negative [facility] Blood, ur Negative Negative [facility] Urobilinogen, ur <2.0 <2.0 mg/dL [facility] Nitrite, ur Negative Negative [facility] Leukocyte esterase, ur Negative Negative [facility] UA reflex comment Reflex to microscopic UA will be performed. [facility] Urine 05/21/2024 5:34 PM WEB OPERATIONS ADMINISTRATOR 05/21/2024 5:39 PM WEB OPERATIONS ADMINISTRATOR Marcus Amaya MD LAB URINE ORDERABLES F inal Result [facility] Department [place] [address] * Amphetamine Confirmation, Urine (05/21/2024 5:34 PM WEB OPERATIONS ADMINISTRATOR) Amphetamine Conf, Ur Does Not Confirm CutOff [...] needed. Performance characteristics were determined by the [facility] in a manner consistent with CLIA requirement and has not been cleared or approved by the U.S. Food and Drug Administration. Current interpretive data was last revised on 2020. Urine 05/21/2024 5:34 PM WEB OPERATIONS ADMINISTRATOR 05/21/2024 5:46 PM WEB OPERATIONS ADMINISTRATOR Marcus Amaya MD LAB URINE ORDERABLES F inal Result Performing Organization Address [facility] [place] [address] * (ABNORMAL) Urinalysis, microscopic only (05/21/2024 5:34 PM WEB OPERATIONS ADMINISTRATOR) [facility] WBC, ur 0-5 0 - 5 /HPF RBC, ur 0-2 0 - 2 /HPF [facility] Epithelial cells, squamous, ur 1-5 0 - 5 /HPF [facility] Bacteria, ur Trace(A) [facility] Mucous, ur Present(A) [facility] Hyaline casts, ur 11-20(A) 0 - 10 /LPF [facility] Urine 05/21/2024 5:34 PM WEB OPERATIONS ADMINISTRATOR 05/21/2024 5:39 PM WEB OPERATIONS ADMINISTRATOR Marcus Amaya MD LAB URINE ORDERABLES F inal Result Performing Organization Address [facility] de Phone Number [facility] [place] [address] * Sepsis Lactate w/ Reflex (05/21/2024 4:33 PM WEB OPERATIONS ADMINISTRATOR) [facility] Sepsis Lactate 1.9 0.7 - 2.0 mmol/L Blood 05/21/2024 4:33 PM WEB OPERATIONS ADMINISTRATOR 05/21/2024 4:44 PM WEB OPERATIONS ADMINISTRATOR Marcus Amaya MD LAB BLOOD ORDERABLES F inal Result Performing Organization Address [facility] [place] [address] * eGFR (05/21/2024 3:41 PM WEB OPERATIONS ADMINISTRATOR) [facility] eGFR 70 >=60 mL/min/1. 73 m2 Comment: [...] last reviewed 2021. Blood 05/21/2024 3:41 PM WEB OPERATIONS ADMINISTRATOR 05/21/2024 4:03 PM WEB OPERATIONS ADMINISTRATOR us Chelle Elliott MD LAB BLOOD ORDERABLES Final Result [facility] Department [place] [address] * (ABNORMAL) Differential, auto (05/21/2024 3:41 PM WEB OPERATIONS ADMINISTRATOR) Pathologist [facility] Neutrophil abs 6.9(H) 1.5 - 6.5 K/cumm Imm gran abs 0.0 0.0 - 0.1 K/cumm [facility] Lymphocyte abs 1.5 0.8 - 3.3 K/cumm [facility] Monocyte abs 0.9(H) 0.2 - 0.8 K/cumm [facility] Eosinophil abs 0.0 0.0 - 0.5 K/cumm [facility] Basophil abs 0.0 0.0 - 0.1 K/cumm [facility] Neutrophil pct 73.5 % [facility] Comment: Interpretive Data Percent cell count reference ranges are not reported, since discordance with absolute values may lead to misinterpretation of CBC data. Current Interpretive Data was last revised on 2017. Imm gran pct 0.3 % [facility] Comment: Interpretive Data Percent cell count reference ranges are not reported, since discordance with absolute values may lead to misinterpretation of CBC data. Current Interpretive Data was last revised on 2017. Lymphocyte pct 15.7 % [facility] Comment: Interpretive Data Percent cell count reference ranges are not reported, since discordance with absolute values may lead to misinterpretation of CBC data. Current Interpretive Data was last revised on 2017. Monocyte pct 10.0 % [facility] Comment: Interpretive Data Percent cell count reference ranges are not reported, since discordance with absolute values may lead to misinterpretation of CBC data. Current Interpretive Data was last revised on 2017. Eosinophil pct 0.1 % [facility] Comment: Interpretive Data Percent cell [...] revised on 2017. Blood 05/21/2024 3:41 PM WEB OPERATIONS ADMINISTRATOR 05/21/2024 4:06 PM WEB OPERATIONS ADMINISTRATOR us Chelle Elliott MD LAB BLOOD ORDERABLES Final Result [facility] Department [place] [address] * CBC with auto differential (05/21/2024 3:41 PM WEB OPERATIONS ADMINISTRATOR) WBC 9.4 3.8 - 9.9 K/cumm Hgb 13.9 13.0 - 17.5 g/dL [facility] Hct 40.0 38.9 - 50.3 % [facility] Plt 291 150 - 400 K/cumm [facility] MPV 9.1 9.1 - 12.3 fL [facility] RBC 4.59 4.30 - 5.80 M/cumm [facility] MCV 87.1 81.3 - 96.4 fL [facility] MCH 30.3 27.1 - 33.3 pg [facility] MCHC 34.8 32.3 - 35.7 g/dL [facility] RDW CV 13.1 11.1 - 14.9 % [facility] RDW SD 41.8 35.7 - 48.1 fL [facility] NRBC abs 0.00 0.00 - 0.01 K/cumm [facility] Blood (Blood, Venous) 05/21/2024 3:41 PM WEB OPERATIONS ADMINISTRATOR 05/21/2024 4:06 PM WEB OPERATIONS ADMINISTRATOR Marcus Amaya MD LAB BLOOD ORDERABLES F inal Result Performing Organization Address [facility] de Phone Number [facility] Department [place] [address] * Lipase (05/21/2024 3:41 PM WEB OPERATIONS ADMINISTRATOR) [facility] Lipase 15 10 - 99 Units/L Blood (Blood, Venous) 05/21/2024 3:41 PM WEB OPERATIONS ADMINISTRATOR 05/21/2024 4:03 PM WEB OPERATIONS ADMINISTRATOR Marcus Amaya MD LAB BLOOD ORDERABLES F inal Result Performing Organization Address [facility] de Phone Number [facility] [place] [address] * (ABNORMAL) Comprehensive metabolic panel (05/21/2024 3:41 PM WEB OPERATIONS ADMINISTRATOR) [facility] Sodium 136 135 - 145 mmol/L Potassium, pl 3.6 3.3 - 4.9 mmol/L [facility] Chloride 99 97 - 110 mmol/L [facility] CO2 22 22 - 32 mmol/L [facility] Anion gap 15 2 - 15 mmol/L [facility] BUN 22 6 - 25 mg/dL [facility] Creatinine 1.37(H) 0.80 - 1.30 mg/dL [facility] Glucose 92 70 - 199 mg/dL [facility] Comment: [...] 2022. Calcium 10.3 8.5 - 10.3 mg/dL [facility] Bilirubin, total 1.5(H) 0.1 - 1.2 mg/dL [facility] Protein, pl 8.5 6.5 - 8.5 g/dL [facility] Albumin 5.1(H) 3.5 - 5.0 g/dL [facility] Alk phos 99 40 - 130 Units/L [facility] ALT 19 7 - 55 Units/L [facility] AST 21 10 - 50 Units/L [facility] Blood 05/21/2024 3:41 PM WEB OPERATIONS ADMINISTRATOR 05/21/2024 4:03 PM WEB OPERATIONS ADMINISTRATOR Marcus Amaya MD LAB BLOOD ORDERABLES F inal Result [facility] Department [place] [address] * ECG 12-LEAD (05/21/2024 2:24 PM WEB OPERATIONS ADMINISTRATOR) Narrative [facility] - 05/21/2024 2:24 PM WEB OPERATIONS ADMINISTRATOR Huy Mack MD ? 05/21/2024 ??2:27 PM [...] Marcus Amaya MD ECG ORDERABLES Final Result [facility] * ECG 12-LEAD (05/19/2024 11:55 PM WEB OPERATIONS ADMINISTRATOR) Narrative [facility] - 05/19/2024 11:55 PM WEB OPERATIONS ADMINISTRATOR Deniz Huitron MD ? 05/19/2024 11:56 PM [...] Casandra Lock MD ECG ORDERABLES Final Result [facility] * XR Chest PA Lateral 2 Views (05/19/2024 10:34 PM WEB OPERATIONS ADMINISTRATOR) Anatomical Region Laterality Modality Body, Chest N/A Computed Radiogr aphy 05/19/2024 10:4 3 PM WEB OPERATIONS ADMINISTRATOR Impressions 05/20/2024 9:03 AM WEB OPERATIONS ADMINISTRATOR Comparison is made to 07/05/2023. Thoracic aorta [...] Collins Wills M.D. Narrative 05/20/2024 9:03 AM WEB OPERATIONS ADMINISTRATOR EXAMINATION: 2 view chest radiograph Procedure Note [...] CTA Chest Abdomen Pelvis (05/19/2024 10:20 PM WEB OPERATIONS ADMINISTRATOR) Anatomical Region Laterality Modality Body N/A Computed Tomogra phy 05/19/2024 10:5 1 PM WEB OPERATIONS ADMINISTRATOR Impressions 05/20/2024 9:06 AM WEB OPERATIONS ADMINISTRATOR 1. ??Unchanged thoracoabdominal aortic dissection status post [...] Collins Wills M.D. Narrative 05/20/2024 9:06 AM WEB OPERATIONS ADMINISTRATOR EXAMINATION: ??CT ANGIOGRAPHY OF THE CHEST, ABDOMEN [...] (baseline, 2hr, 4hr, 6hr) (05/19/2024 9:12 PM WEB OPERATIONS ADMINISTRATOR) [facility] Trop I hs 4 <=35 ng/L Comment: Interpretive Data For further hscTnI resources including the diagnostic algorithm and an aid in interpretation, copy and paste this link: [email or web address] Current Interpretive Data last revised 2019. Blood 05/19/2024 9:12 PM WEB OPERATIONS ADMINISTRATOR 05/19/2024 9:28 PM WEB OPERATIONS ADMINISTRATOR Cristobal Waldrop MD LAB BLOOD ORDERABLE S Final Result [facility] Department [place] [address] * eGFR (05/19/2024 9:12 PM WEB OPERATIONS ADMINISTRATOR) [facility] eGFR 85 >=60 mL/min/1. 73 m2 Comment: [...] last reviewed 2021. Blood 05/19/2024 9:12 PM WEB OPERATIONS ADMINISTRATOR 05/19/2024 9:28 PM WEB OPERATIONS ADMINISTRATOR Cristobal Waldrop MD LAB BLOOD ORDERABLE S Final Result [facility] Department [place] [address] * (ABNORMAL) Differential, auto (05/19/2024 9:12 PM WEB OPERATIONS ADMINISTRATOR) Neutrophil abs 7.6(H) 1.5 - 6.5 K/cumm Imm gran abs 0.1 0.0 - 0.1 K/cumm [facility] Lymphocyte abs 0.9 0.8 - 3.3 K/cumm [facility] Monocyte abs 0.5 0.2 - 0.8 K/cumm [facility] Eosinophil abs 0.0 0.0 - 0.5 K/cumm [facility] Basophil abs 0.0 0.0 - 0.1 K/cumm [facility] Neutrophil pct 84.3 % [facility] Comment: Interpretive Data Percent [...] revised on 2017. Lymphocyte pct 9.4 % [facility] Comment: Interpretive Data Percent cell count reference ranges are not reported, since discordance with absolute values may lead to misinterpretation of CBC data. Current Interpretive Data was last revised on 2017. Monocyte pct 5.3 % [facility] Comment: Interpretive Data Percent cell count reference ranges are not reported, since discordance with absolute values may lead to misinterpretation of CBC data. Current Interpretive Data was last revised on 2017. Eosinophil pct 0.1 % [facility] Comment: Interpretive Data Percent cell count reference ranges are not reported, since discordance with absolute values may lead to misinterpretation of CBC data. Current Interpretive Data was last revised on 2017. Basophil pct 0.2 % [facility] Comment: Interpretive Data Percent cell count reference ranges are not reported, since discordance with absolute values may lead to misinterpretation of CBC data. Current Interpretive Data was last revised on 2017. Blood 05/19/2024 9:12 PM WEB OPERATIONS ADMINISTRATOR 05/19/2024 9:28 PM WEB OPERATIONS ADMINISTRATOR us Cristobal Waldrop MD LAB BLOOD ORDERABLE S Final Result [facility] Department [place] [address] * CBC with auto differential (05/19/2024 9:12 PM WEB OPERATIONS ADMINISTRATOR) WBC 9.0 3.8 - 9.9 K/cumm Hgb 13.7 13.0 - 17.5 g/dL [facility] Hct 39.7 38.9 - 50.3 % [facility] Plt 293 150 - 400 K/cumm [facility] MPV 9.2 9.1 - 12.3 fL [facility] RBC 4.53 4.30 - 5.80 M/cumm [facility] MCV 87.6 81.3 - 96.4 fL [facility] MCH 30.2 27.1 - 33.3 pg [facility] MCHC 34.5 32.3 - 35.7 g/dL [facility] RDW CV 13.2 11.1 - 14.9 % [facility] RDW SD 42.5 35.7 - 48.1 fL [facility] NRBC abs 0.00 0.00 - 0.01 K/cumm [facility] Blood 05/19/2024 9:12 PM WEB OPERATIONS ADMINISTRATOR 05/19/2024 9:28 PM WEB OPERATIONS ADMINISTRATOR us Cristobal Waldrop MD LAB BLOOD ORDERABLE S Final Result Performing Organization Address [facility] de Phone Number [facility] [place] [address] * aPTT (05/19/2024 9:12 PM WEB OPERATIONS ADMINISTRATOR) aPTT 34 28 - 38 sec Comment: Interpretive Data Heparin therapeutic range: 66.0 - 100.0 seconds. Range based on correlation with therapeutic heparin activity range of 0.3 - 0.7 Units/mL. Current interpretive data was last revised on 2023. Blood 05/19/2024 9:12 PM WEB OPERATIONS ADMINISTRATOR 05/19/2024 9:32 PM WEB OPERATIONS ADMINISTRATOR us Cristobal Waldrop MD LAB BLOOD ORDERABLE S Final Result Performing Organization Address [facility] de Phone Number [facility] [place] [address] * (ABNORMAL) Protime-INR (05/19/2024 9:12 PM WEB OPERATIONS ADMINISTRATOR) PT 14.2(H) 9.7 - 13.0 sec INR 1.31(H) 0.90 - 1.20 [facility] Comment: Interpretive data Oral anticoagulant therapeutic ranges: Venous thromboembolism prophylaxis or treatment: 2.0-3.0 CARDIOLOGY Standard range: 2.0-3.0 High-intensity range: 2.5-3.5 Refer to indication-specific guidelines for appropriate target ranges for prosthetic heart valve replacement. Current interpretive data was last revised on 2019. Blood 05/19/2024 9:12 PM WEB OPERATIONS ADMINISTRATOR 05/19/2024 9:32 PM WEB OPERATIONS ADMINISTRATOR Cristobal Waldrop MD LAB BLOOD ORDERABLE S Final Result Performing Organization Address [facility] Co de Phone Number [facility] Department [place] [address] * Type and screen (05/19/2024 9:12 PM WEB OPERATIONS ADMINISTRATOR) [facility] Ellen, indirect Negative ABO Rh A Positive [facility] Blood 05/19/2024 9:12 PM WEB OPERATIONS ADMINISTRATOR 05/19/2024 9:22 PM WEB OPERATIONS ADMINISTRATOR Narrative [facility] - 05/19/2024 10:07 PM WEB OPERATIONS ADMINISTRATOR Has the patient had Daratumumab or Isatuximab in the past 6 months?->Unknown Cristobal Waldrop MD LAB BLOOD BANK TEST ORDERABLES Final Result Performing Organization Address [facility] Co de Phone Number [facility] [place] [address] * (ABNORMAL) Comprehensive metabolic panel (05/19/2024 9:12 PM WEB OPERATIONS ADMINISTRATOR) [facility] Sodium 139 135 - 145 mmol/L Potassium, pl 3.9 3.3 - 4.9 mmol/L [facility] Chloride 100 97 - 110 mmol/L [facility] CO2 21(L) 22 - 32 mmol/L [facility] Anion gap 18(H) 2 - 15 mmol/L [facility] BUN 18 6 - 25 mg/dL [facility] Creatinine 1.17 0.80 - 1.30 mg/dL [facility] Glucose 108 70 - 199 mg/dL [facility] Comment: [...] Calcium 10.2 8.5 - 10.3 mg/dL [facility] Bilirubin, total 1.2 0.1 - 1.2 mg/dL [facility] Protein, pl 8.7(H) 6.5 - 8.5 g/dL [facility] Albumin 5.1(H) 3.5 - 5.0 g/dL [facility] Alk phos 105 40 - 130 Units/L [facility] ALT 23 7 - 55 Units/L [facility] AST 18 10 - 50 Units/L [facility] Blood 05/19/2024 9:12 PM WEB OPERATIONS ADMINISTRATOR 05/19/2024 9:28 PM WEB OPERATIONS ADMINISTRATOR us Cristobal Waldrop MD LAB BLOOD ORDERABLE S Final Result [facility] [place] [address] * Hepatitis C antibody Blood (09/06/2023 11:15 AM CDT) Hep C Ab Nonreactive Nonreactive Comment:Antibodies to HCV no t detected. Does NOT exclude the possibility of recent exposure to HCV. Current interpretive data was last revised on 22 Blood 09/06/2023 11:1 5 AM CDT 09/06/2023 11:34 AM CDT us Clyde Nelson MD LAB MICROBIOLOGY - GENERAL SHAUNA LOPEZ Edited Result - Final [facility] [place] [address] from Last 3 Months or Most Recently Relevant to Health Maintenance Insurance [employer] [facility] [employer] [facility] [facility] Advance Directives For more information, please contact: [phone] * Full Code (Latest Code Status on [...] Meron Tucker Health Care Agent Care Teams Shake Splitter Relationship Specialty Start Date End Date Ronak Painting PA [address] [place] [address] PCP - General Physician Electrical Instrument Technician 06/14/24 Leo Manazno MD [id number] [place] [address] Surgeon Vascular Surgery 05/16/23
--- OUTSIDE RECORDS SUMMARY | 2024-07-03 10:01 | XMS_ITS | Clinical Summary ---
Author Organization [facility] Address [address] [place] [address] Care Team Providers Care Production Machine Shop Supervisor Name Role Phone Unavailable Primary Care Provider Unavailabl e Source Comments [facility] [employer],non-owned Affiliates and Associated Physician Practices is amultiple site organization consisting of ambulatory clinics and hospital sitesin [place], [place], [place] and [place]. This disclosure is being madepursuant to the Care Everywhere program and may not contain all information available regarding this patient. Last updated 18.[facility] [employer] Social History Tobacco Use Types Packs/Day Years [...] of 3 - 19+ 3-dose series) 2011 COVID-19 VACCINE ( - 2023-2 5 season) 2024 INFLUENZA VACCINE (#1) 2024 DEPRESSION SCREENING 05/30/2024 ZOSTER VACCINE (1 of 2) 2042 HIB VACCINE Aged Out No longer eligi ble based on patient's age to complete this topic HPV VACCINE Aged Out No longer eligi ble based on patient's age to complete this topic MENINGOCOCCAL (Group B) VACCINE Aged Out No longer eligible based on patient's age to complete this topic MENINGOCOCCAL VACCINE Aged Out No pat matty eligible based on patient's age to complete this topic PNEUMOCOCCAL VACCINE Aged Out No long er eligible based on patient's age to complete this topic
[2024-07-03 10:04] LABS: Basophils Absolute Auto 0.04 K/mm3 (0.00-0.10); Basophils Percent Auto 0.3 % (0.0-1.0); Eosinophils Absolute Auto 0.08 K/mm3 (0.02-0.50); Eosinophils Percent Auto 0.6 % (1.0-6.0); Hematocrit 41.3 % (40.0-54.0); Hemoglobin 13.4 g/dL (14.0-18.0); Immature Granulocyte Absolute 0.06 K/mm3 (0.00-0.00); Immature Granulocyte Percent A 0.5 % (0.0-0.0); Lymphocytes Absolute Auto 0.94 K/mm3 (1.10-4.50); Lymphocytes Percent Auto 7.3 % (18.0-42.0); Mean Corpuscular HGB Conc 32.4 g/dL (32-36); Mean Corpuscular Hemoglobin 29.9 pg (27.0-31.0); Mean Corpuscular Volume 92.2 fL (78.0-102.0); Mean Platelet Volume 8.3 fl (8.7-11.0); Monocytes Absolute Auto 0.95 K/mm3 (0.10-0.90); Monocytes Percent Auto 7.4 % (2.0-11.0); Neutrophils Percent Auto 83.9 % (50.0-70.0); Platelet Count Result 307 K/mm3 (150-420); Red Blood Count 4.48 M/mm3 (4.70-6.10); Red Cell Distribution Width 12.6 % (11.6-14.4); White Blood Count 12.9 K/mm3 (4.8-10.8)
[2024-07-03 10:17] LABS: Alanine Aminotransferase 16 U/L (16-63); Albumin Level 4.2 g/dL (3.4-5.0); Alkaline Phosphatase 104 U/L (46-116); Anion Gap 13 mmol/L (4-12); Aspartate Amino Transferase < 10 U/L (15-37); Bilirubin,Total 1.2 mg/dL (0.00-1.00); Blood Urea Nitrogen 27 mg/dL (7-18); Calcium 9.2 mg/dL (8.5-10.1); Carbon Dioxide 22 mmol/L (21-32); Chloride 102 mmol/L (98-108); Estimated Glomerular Filt Rate > 60; Glucose 92 mg/dL (70-99); Lipase 20 U/L (16-77); Osmolality Calculated 289 mOsm/kg (285-295); Potassium 3.9 mmol/L (3.5-5.1); Sodium 137 mmol/L (136-145)
[2024-07-03 10:18] LABS: Partial Thromboplastin Time 31.3 Sec (23.9-30.70); Prothrombin Time 11.5 Seconds (9.50-12.1)
--- OUTSIDE RECORDS SUMMARY | 2024-07-03 10:21 | XMS_ITS | Encounter Summary ---
Author Organization [facility] Address [address] [place] [address] Phone Care Team Providers Care Feed Manager Name Role Phone Leo Manzano MD Unavailable [phone] Carl Strickland MD Primary Care Provider [employer]ak Painting Primary Care Provider [phone] Encounter Details Date Type Department Care Team (Latest Contact Info) Description 11/10/2023 Orders Only [facility] Scanning, Provider Social History Tobacco Use Types Packs/Day Years Used Date Smoking Tobacco: Never Smokeless Tobacco: Never Alcohol Use Standard Drinks/Week Comments Not Currently 0 (1 standard drink = 0.6 oz pur e alcohol) [facility] Utilities Answer Date Recorded In the past 12 months has [employer] gas, oil, or water Confide threatened to shut off services in your home? Patient declined 10/02/2023 Social Connection and Isolation Panel [NHANES] A nswer Date Recorded In a typical week, how many times do you talk on the phone with family, friends, or neighbors? Patient declined 10/02/2023 How often do you get togethe r with friends or relatives? Patient declined 10/02/2023 How often do you attend rastafarian or holiness serv ices? Patient declined 10/02/2023 [...] on file Legal Sex Male 3:42 AM [employer] IN[employer] Gender Identity Not on file Sexual Orientation Straight 06/12/2023 11 :43 PM [employer]IV[employer] S[employer] INSTRUCTOR documented as of this encounter Progress Notes [...] Chronic Care Management No change(06/20 7:42 AM [employer]IV[employer] SCHO[employer] INSTRUCTOR) No Rita Landa, RN Note: Problem: [...] on filedocumented in this encounter Care Teams Feed Manager Relationship Specialty Start Date End Date Carl Strickland MD [address] [facility] [address] [place] [address] PCP - General Internal Medicine 06/06/23 06/13/24 Ronak Painting PA [address] [facility] [place] [address] PCP - General Physician Fats And Oils Loader 06/14/24 Leo Manzano MD [id number] [place] [address] Surgeon Vascular Surgery 05/16/23 documented as of this encounter
--- OUTSIDE RECORDS SUMMARY | 2024-07-03 10:21 | XMS_ITS | Clinical Summary ---
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) Assessment & Plan (06/24/2023 10:40 AM BASKET SORTER): - s/p vascular access - Q4 N/V checks - no current surgical intervention - no activity restrictions, OOB/ ambulate Infrarenal abdominal aortic aneurysm, without ru pture 06/13/2023 Assessment & Plan (06/24/2023 10:41 AM BASKET SORTER): s/p TEVAR on 06/05/23 (graft terminates above celiac take off) 06/11 discharged home; 06/13 Re admitted for worsening back pain, HTN, and subjective fever/chills. - CT 06/13 shows no change in aneurysm, no stent migration, no increase in false lumen perfusion - non operative Polysubstance abuse ([facility]) 06/10/2023 Moderate malnutrition ([facility]) 06/09/2023 Dissection of abdominal aorta ([facility]) 06/03/19 Urinary retention 05/16/2023 Assessment & Plan (05/16/2023 10:44 AM BASKET SORTER): Patient with urinary retention requiring straight cath X1 05/15, now voiding without any issues. - Continue Flomax. - Patient requests urology follow up, referral placed. Epistaxis 05/13/2023 Assessment & Plan (05/13/2023 12:42 PM BASKET SORTER): Significant nose bleed in the OR requiring intra-op ENT c/s. DL performed, no other sources of bleeding visualized. ACT post protamine 149. - ENT following - ocean spray tid - no other s/s bleeding Pneumonia 05/13/2023 Assessment & Plan (05/13/2023 12:43 PM BASKET SORTER): Tracheal aspirate 05/05 with Haemophilus Inf - susana(05/04 - 05/10), linezolid (05/04-05/06) HTN (hypertension) 05/13/2023 Assessment & Plan (05/28/2024 8:41 AM BASKET SORTER): BP well controlled. - continue home amlodipine [...] needed Assessment & Plan (06/24/2023 10:41 AM BASKET SORTER): Difficult to control Htn. Dr. Abarca following - Continue amlodipine, lisinopril, coreg, hydralazine - SBP goal 120-140 - VS q 4 hrs and prn Assessment & Plan (06/21/2023 7:57 AM BASKET SORTER): BP stable at present. Recommend discontinuation of the diltiazem and continue amlodipine (as opposed to giving two calcium channel blockers) Assessment & Plan (06/20/2023 8:33 PM BASKET SORTER): BP improving. Recommend continue medications and follow up bp, except recommend discontinuation of the diltiazem as he is already on a calcium channel louie, amlodipine Assessment & Plan (06/18/2023 7:59 AM BASKET SORTER): Patient with continued hypertension. Blood pressure in the right arm levels are improved now in the 130s and 140s. Recommend consideration for adjustment of medications as follows. 1. Add spironolactone 25 mg a day 2. Consider adding clonidine 0.1 mg twice a day Assessment & Plan (06/11/2023 7:50 AM BASKET SORTER): Patient hypertensive. Recommend resuming hydralazine 25 mg 3 times a day. Continue the amlodipine and carvedilol. Follow-up blood pressure. The patient should have follow-up blood pressure when he leaves the hospital as well. Assessment & Plan (06/10/2023 3:48 PM BASKET SORTER): Goal systolic BP 140-180 for one month [...] status Assessment & Plan (06/09/2023 10:54 AM BASKET SORTER): Blood pressure well controlled at present. Medicines are being adjusted. Currently on carvedilol and hydralazine. A want to transition to amlodipine 5 mg a day to wean hydralazine, as tolerated, as 3 times a day medication can be difficult long-term Assessment & Plan (05/13/2023 12:49 PM BASKET SORTER): Hx of uncontrolled HTN, non-compliant to medications. [...] time Assessment & Plan (06/11/2023 7:50 AM BASKET SORTER): Clinically stable. Renal function stable. Blood pressure improved We will recommend genetic testing as an outpatient Assessment & Plan (06/10/2023 3:48 PM BASKET SORTER): Presents with abdominal pain and concern for progression of dissection on CT - 06/05/23: OR s/p TEVAR extension and dissection stent placement - BP management per HTN - pain control - Q4 NV checks, Q2 VS - lovenox DVT ppx - He will f/u with Dr. Abarca as outpatient for genetics testing. Assessment & Plan (06/09/2023 10:54 AM BASKET SORTER): Clinically stable. Renal function stable. Blood pressure improved We will recommend genetic testing as an outpatient Assessment & Plan (05/16/2023 10:45 AM BASKET SORTER): Patient presented on 05/01 with acute Chest [...] 05/01/2023 Assessment & Plan (05/29/2024 7:45 AM BASKET SORTER): 34 y/o M with hx of symptomatic Type B aortic dissection requiring TBE and subsequent extension with TEVAR/dissection stents presents as OSH transfer for significant abdominal pain. No concern for mesenteric ischemia. - c/w impulse control - regular diet - transitioned to oral anti-hypertensive - pain management following. Now off lido drip and dilaudid QUALITY ENGINEERING MANAGER. Dilaudid discontinued 05/28. Pain signed off. Assessment & Plan (10/03/2023 2:00 PM CDT): Follows with Dr Abarca Cont antihypertensives Assessment & Plan (06/18/2023 8:00 AM BASKET SORTER): Aortic imaging stable on recent CT scan. Continue blood pressure control. Assessment & Plan (05/02/2023 2:02 PM BASKET SORTER): 32y/o male with uncontrolled HTN who presented to an OSH ER with acute onset shortness of breath, chest pain and back pain. 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 He was transferred to [facility] for further evaluation and treatment. Here, [...] All feel these findings not to be customer service representative teacher of a type a dissection, therefore no [...] Type Department Care Team Description 07/02/2024 Telephone [facility] [address] [place] [address] Adrianne Adams MD PhD PMC Preprocedure 06/27/2024 1:00 PM BASKET SORTER Office Visit [facility] Nephrology [facility] 5th [place] [address] [place] [address] ANGI (acute kidney injury) (HCC) (Primary Dx) 06/20/2024 7:27 AM BASKET SORTER - 06/20/2024 11:59 PM BASKET SORTER Hospital Encounter [facility] [address] [facility] [address] [place] [address] Jeremie Macias MD Yoshida, [place], MD PhD Sacroiliitis (HCC) (Primary Dx); Spondylosis of lumbar region without myelopathy or radiculopathy Discharge Disposition: Discharge to home or self care 06/08/2024 Telephone [facility] Cardiology [address] [place] [address] [place] [phone] Joaquín Abarca MD overdue orders 05/25/[address] [phone] Essie Singh, BRIA 05/23/2024 7:45 PM BASKET SORTER - 05/29/2024 10:36 AM BASKET SORTER Hospital Encounter [address] [phone] Gonzalez Lamar, Leo Salazar MD Abdominal pain (Primary Dx) Discharge Disposition: Discharge to home or self care 05/21/2024 4:17 PM BASKET SORTER - 05/21/2024 8:27 PM BASKET SORTER [facility] Emergency Department [address] [place] [phone] Marcus Amaya MD Nausea and vomiting, unspecified vomiting type (Primary Dx) Discharge Disposition: Discharge to home or self care 05/19/2024 9:40 PM BASKET SORTER - 05/20/2024 1:34 AM BASKET SORTER [facility] Emergency Department [address] [place] [phone] Casandra Lock MD Renz, Nicholas Robert, MD Abdominal pain (Primary Dx); Chronic bilateral low back pain without sciatica; Abdominal aortic aneurysm dissection (HCC) Discharge Disposition: Discharge to home or self care 05/16/2024 2:39 PM BASKET SORTER - 05/16/2024 11:59 PM BASKET SORTER Hospital Encounter [facility] [address] [place] [address] Adrianne Adams MD PhD Sacroiliitis (HCC) (Primary Dx) Discharge Disposition: Discharge to home or self care 04/24/2024 Orders Only [facility] Nephrology [address] [place] [address] [place] [address] Miguel Dominguez MD ANGI (acute kidney injury) [...] 0.6 oz pur e alcohol) [facility] Utilities Answer Date Recorded In [...] often do you attend chur ch or orthodox services? Never 05/24/2024 Do you belong to [...] or slept in a jail (including now)? Patient declined 10/02/2023 Housing Stability [...] any time in the past 12 [facility], were you homeless or living in a jail (including now)? No 05/24/2024 Personal Safety Answer Date Recorded Have you ever been in or are you currently in a harmful physical or emotional relationship or is someone making you feel afraid or unsafe? Denies 05/23/2024 Sex and Gender Information Value Date Recorded Sex Assigned at Not on file Legal Sex Male 3:42 AM BASKET SORTER Gender Identity Not on file Sexual Orientation Straight 06/12/2023 11 :43 PM BASKET SORTER Obstetrics History Last Filed Vital Signs Vital Sign Reading Time Taken Comments Blood Pressure 101/67 06/27/2024 12:49 PM BASKET SORTER Pulse 83 06/27/2024 12:49 PM BASKET SORTER Temperature 36.6 ??C (97.8 ??F) 06/20/2024 7:35 AM CS T Respiratory Rate 15 06/20/2024 8:49 AM BASKET SORTER Oxygen Saturation 96% 06/20/2024 8:49 AM BASKET SORTER Inhaled Oxygen Concentration - - Weight 95.9 kg (211 lb 6.4 oz) 06/27/2024 12:49 PM BASKET SORTER Height 175.3 cm (5' 9 ) 06/27/2024 12:49 PM BASKET SORTER Body Mass Index 31.22 06/27/2024 12:49 PM BASKET SORTER Plan of Treatment Health Maintenance Due Date [...] Chronic Care Management No change(06/20 7:42 AM BASKET SORTER) No Rita Landa, RN Note: Problem: Chronic Pain Goals: 1. Minimize further functional decline 2. Maximize quality of life 3. Control pain Strategies: - Activity/exercise program recommendation - Conservative stepwise pain medicine strategy with multi-disciplinary approach - Recommend healthy lifestyle strategies and compensatory methods as needed Medical Devices Implanted Type Area Premium Service Representative Device Identifier Shelf Expiration Date Model / Serial / Lot [employer] Stent Graft Aortic Covered Tag [id number] Eptfe Nitinol [id number] - [id number] - [id number] Implanted:Qty : 1 on 05/02/2023 by Leo Manzano MD at [facility] Graft N/A: Aorta [employer] [id number] 12/07/2025 [id number] / [id number] / [employer] Stent Graft Thoracic Side Branch Tag [id number] Eptfe Nitinol [id number] - [id number] - [id number] Implanted:Qty : 1 on 05/02/2023 by Leo Manzano MD at [facility] Stent Left: Subclavian [employer] [id number] 06/27/2025 [id number] / [id number] / [employer] Graft Stent [place] Tag L20cm Od37mm Thoracic Active Control [id number] - [id number] - [id number] Implanted:Qty : 1 on 06/05/2023 by Nikhil Samuel MD at [facility] Stent N/A: Descending Thoracic Aorta [employer] [id number] 04/12/2024 [id number] / [id number] / [employer] Zenith 36mm 20-30mm 16mm 180mm 9 Dissection Introducer Sheath [id number] - [id number] Implanted:Qty : 1 on 06/05/2023 by Nikhil Samuel MD at [facility] Stent N/A: Descending Thoracic Aorta [employer] [id number] 12/20/2025 [id number] / / [id number] [employer] Device Clsr Perclose Prostyle Sut-Mediatd Closure-Repai r Sys 71773-91 - [id number] Implanted:Qty : 3 on 05/02/2023 by Leo Manzano MD at [facility] Vascular Closure Device Left: Common Femoral Artery [employer] [id number] 09/26/2024 11419-52 / / [id number] Description:Same lot number [employer] Device Clsr Perclose Prostyle Sut-Mediatd Closure-Repai r Sys 54411-95 - [id number] Implanted:Qty : 1 on 06/05/2023 by Nikhil Samuel MD at [facility] Left: Groin [employer] [id number] 12/27/2024 33739-58 / / [id number] [employer] Device Clsr Perclose Prostyle Sut-Mediatd Closure-Repai r Sys 18112-41 - [id number] Implanted:Qty : 1 on 06/05/2023 by Nikhil Samuel MD at [facility] Left: Groin [employer] [id number] 12/27/2024 98061-19 / / [id number] [employer] Contour 6fr 26cm Large Inner Lumen Low Profile Bladder Ag Taper Latex Free 180-223 - [id number] Implanted:Qty : 1 on 09/27/2023 by Marcus Glass MD at [facility] Right: Ureter [employer] 05/16/2026 [id number] / / [id number] [employer] Ron Contour 6fr 26cm Large Inner Lumen Low Profile Bladder Ag Taper Latex Free 180-223 - [id number] Implanted:Qty : 1 on 10/04/2023 by Otoniel Landa MD at [facility] Right: Ureter [employer] Ron 05/16/2026 [id number] 230 / / [id number] Explanted Type Area Premium Service Representative Device Identifier Shelf Expiration Date Model / Serial / Lot [employer] Inlay [place] 6fr 28cm Pusher Fluoro Marker Atraumatic Insertion Latex Free [id number] - [id number] Implanted:Qty: 1 on 07/04/2023 by Marcus Gamboa MD at [facility] Explanted:Qty: 1 on 07/14/2023 by Stacia Su MD Stent Left: Ureter [employer] [id number] 04/14/2027 [id number] / / [id number] Procedures Procedure Name Priority Date/Time Associated Diagnosis Comments PAIN MGMT IMAGING SI JOINT BILATERAL ARTHROGRPHY Schedule Routine, Read Routine (OP Routine) 06/20/2024 8:41 AM BASKET SORTER Sacroiliitis (HCC) EGFR Timed 05/28/2024 3:36 AM BASKET SORTER BASIC METABOLIC PANEL Timed 05/28/2024 3:36 AM BASKET SORTER CBC WITHOUT DIFFERENTIAL Timed 05/28/2024 3:36 AM BASKET SORTER LIDOCAINE LEVEL Timed 05/28/2024 3:36 AM BASKET SORTER LIDOCAINE LEVEL Timed 05/27/2024 3:29 AM BASKET SORTER TYPE AND SCREEN Timed 05/27/2024 3:29 AM BASKET SORTER EGFR Routine 05/26/2024 4:38 AM BASKET SORTER LIDOCAINE LEVEL Timed 05/26/2024 4:38 AM BASKET SORTER BASIC METABOLIC PANEL Routine 05/26/2024 4:38 AM BASKET SORTER CBC WITHOUT DIFFERENTIAL Routine 05/26/2024 4:38 AM BASKET SORTER EGFR Routine 05/25/2024 4:20 PM BASKET SORTER BASIC METABOLIC PANEL Routine 05/25/2024 4:20 PM BASKET SORTER CBC WITHOUT DIFFERENTIAL Routine 05/25/2024 4:20 PM BASKET SORTER LIDOCAINE LEVEL Routine 05/25/2024 4:20 PM BASKET SORTER CRITICAL CARE Routine 05/25/2024 8:12 AM BASKET SORTER Abdominal pain POCT GLUCOSE DEVICE Routine 05/25/2024 4 :16 AM BASKET SORTER POCT GLUCOSE DEVICE Routine 05/24/2024 1 1:36 PM BASKET SORTER POCT GLUCOSE DEVICE Routine 05/24/2024 8 :50 PM BASKET SORTER CRITICAL CARE Routine 05/24/2024 8:47 PM BASKET SORTER Abdominal pain EGFR Routine 05/24/2024 5:43 PM BASKET SORTER DIFFERENTIAL AUTO Routine 05/24/2024 5:4 3 PM BASKET SORTER LACTATE, WHOLE BLOOD STAT 05/24/2024 5:43 PM BASKET SORTER AMYLASE Routine 05/24/2024 5:43 PM BASKET SORTER PHOSPHORUS Routine 05/24/2024 5:43 PM BASKET SORTER MAGNESIUM Routine 05/24/2024 5:43 PM BASKET SORTER COMPREHENSIVE METABOLIC PANEL Routine 05/24/2024 5:43 PM BASKET SORTER CBC WITH AUTO DIFFERENTIAL Routine 05/24/2024 5:43 PM BASKET SORTER POCT GLUCOSE DEVICE Routine 05/24/2024 3 :52 PM BASKET SORTER POCT GLUCOSE DEVICE Routine 05/24/2024 1 1:06 AM BASKET SORTER POCT GLUCOSE DEVICE Routine 05/24/2024 7 :46 AM BASKET SORTER CRITICAL CARE Routine 05/24/2024 6:15 AM BASKET SORTER Abdominal pain POCT GLUCOSE DEVICE Routine 05/24/2024 3 :23 AM BASKET SORTER POCT GLUCOSE DEVICE Routine 05/23/2024 1 1:04 PM BASKET SORTER EGFR STAT 05/23/2024 8:33 PM BASKET SORTER DIFFERENTIAL AUTO STAT 05/23/2024 8:3 3 PM BASKET SORTER PROTIME-INR STAT 05/23/2024 8:33 PM BASKET SORTER APTT STAT 05/23/2024 8:33 PM BASKET SORTER TYPE AND SCREEN Timed 05/23/2024 8:33 PM BASKET SORTER CBC WITH AUTO DIFFERENTIAL STAT 05/23/2024 8:33 PM BASKET SORTER CREATINE KINASE (CK), TOTAL STAT 05/23/2024 8:33 PM BASKET SORTER LACTATE STAT 05/23/2024 8:33 PM BASKET SORTER CALCIUM, IONIZED STAT 05/23/2024 8:33 PM BASKET SORTER PHOSPHORUS STAT 05/23/2024 8:33 PM BASKET SORTER MAGNESIUM STAT 05/23/2024 8:33 PM BASKET SORTER COMPREHENSIVE METABOLIC PANEL STAT 05/23/2024 8:[address] BODY OUTSIDE REFERENCE Routine 05/23/2024 8:[address] BODY OUTSIDE CONSULT Routine 05/23/2024 8:18 PM BASKET SORTER POCT GLUCOSE DEVICE Routine 05/23/2024 7 :47 PM BASKET SORTER POCT RAPID HIV ANTIBODY COMMUNITY SCREENING-PAPA ELIGIBLE Routine 05/21/2024 7:35 PM BASKET SORTER OXYCODONE CONFIRMATION, URINE Routine 05/21/2024 5:34 PM BASKET SORTER FENTANYL CONFIRMATION, MS URINE Routine 05/21/2024 5:34 PM BASKET SORTER AMPHETAMINE, URINE, CONFIRMATION Routine 05/21/2024 5:34 PM BASKET SORTER URINALYSIS, MICROSCOPIC ONLY STAT 05/21/2024 5:34 PM BASKET SORTER DRUGS OF ABUSE SCREEN, URINE WITH REFLEX CONFIRMATION Routine 05/21/2024 5:34 PM BASKET SORTER URINALYSIS AND REFLEX TO MICROSCOPIC STAT 05/21/2024 5:34 PM BASKET SORTER SEPSIS LACTATE WITH REFLEX STAT 05/21/2024 4:33 PM BASKET SORTER EGFR STAT 05/21/2024 3:41 PM BASKET SORTER DIFFERENTIAL AUTO STAT 05/21/2024 3:4 1 PM BASKET SORTER LIPASE STAT 05/21/2024 3:41 PM BASKET SORTER COMPREHENSIVE METABOLIC PANEL STAT 05/21/2024 3:41 PM BASKET SORTER CBC WITH AUTO DIFFERENTIAL STAT 05/21/2024 3:41 PM BASKET SORTER ECG 12-LEAD STAT 05/21/2024 2:24 PM BASKET SORTER ECG 12-LEAD STAT 05/19/2024 11:55 PM BASKET SORTER XR CHEST PA LATERAL 2 VIEWS ED 05/19/2024 10:34 PM BASKET SORTER CTA CHEST ABDOMEN PELVIS ED 05/19/2024 10:20 PM BASKET SORTER EGFR STAT 05/19/2024 9:12 PM BASKET SORTER DIFFERENTIAL AUTO Timed 05/19/2024 9:1 2 PM BASKET SORTER TROPONIN I HIGH-SENSITIVITY SERIES (BASELINE, 2HR, 4HR, 6HR) STAT 05/19/2024 9:12 PM BASKET SORTER TYPE AND SCREEN STAT 05/19/2024 9:12 PM BASKET SORTER APTT STAT 05/19/2024 9:12 PM BASKET SORTER PROTIME-INR STAT 05/19/2024 9:12 PM BASKET SORTER COMPREHENSIVE METABOLIC PANEL STAT 05/19/2024 9:12 PM BASKET SORTER CBC WITH AUTO DIFFERENTIAL Timed 05/19/2024 9:12 PM BASKET SORTER HEPATITIS C ANTIBODY Routine 09/06/2023 11:15 AM CDT from Last 3 Months or Most Recently Relevant to Health Maintenance Results * Imaging SI Joint Injection Bilateral (86435) (06/20/2024 8:41 AM BASKET SORTER) Narrative [facility] - 06/20/2024 8:41 AM BASKET SORTER The images from this study are not interpreted by Radiology. ??Please refer to the physician's procedure / OR operative note. us Adrianne Adams MD PhD IMG PAIN MGMT PROCEDURE S Final Result [facility] * eGFR (05/28/2024 3:36 AM BASKET SORTER) eGFR >90 >=60 mL/min/1. 73 m2 Comment: [...] last reviewed 2021. Blood 05/28/2024 3:36 AM BASKET SORTER 05/28/2024 4:30 AM BASKET SORTER us Leo Manzano MD LAB BLOOD ORDERABLES Final Result Performing Organization Address City/[facility]/ZIP Co de Phone Number [facility] [place] [address] * (ABNORMAL) Lidocaine level (05/28/2024 3:36 AM BASKET SORTER) [facility] Lidocaine (Xylocaine) <1.0(L) 1.5 - 5.0 mcg/mL Blood 05/28/2024 3:36 AM BASKET SORTER 05/28/2024 4:30 AM BASKET SORTER Gonzalez Lamar DO LAB BLOOD ORDERABLES Fin al Result Performing Organization Address City/[facility] Co de Phone Number [facility] Department [place] [address] * (ABNORMAL) CBC without differential (05/28/2024 3:36 AM BASKET SORTER) [facility] WBC 5.0 3.8 - 9.9 K/cumm Hgb 11.7(L) 13.0 - 17.5 g/dL [facility] Hct 35.3(L) 38.9 - 50.3 % [facility] Plt 240 150 - 400 K/cumm [facility] MPV 9.5 9.1 - 12.3 fL [facility] RBC 3.82(L) 4.30 - 5.80 M/cumm [facility] MCV 92.4 81.3 - 96.4 fL [facility] MCH 30.6 27.1 - 33.3 pg [facility] MCHC 33.1 32.3 - 35.7 g/dL [facility] RDW CV 13.3 11.1 - 14.9 % [facility] RDW SD 45.1 35.7 - 48.1 fL [facility] NRBC abs 0.00 0.00 - 0.01 K/cumm [facility] Blood 05/28/2024 3:36 AM BASKET SORTER 05/28/2024 4:32 AM BASKET SORTER Leo Manzano MD LAB BLOOD ORDERABLES Final Result [facility] Department [place] [address] * Basic metabolic panel (05/28/2024 3:36 AM BASKET SORTER) [facility] Sodium 140 135 - 145 mmol/L Potassium, pl 4.0 3.3 - 4.9 mmol/L [facility] Chloride 103 97 - 110 mmol/L [facility] CO2 25 22 - 32 mmol/L [facility] Anion gap 12 2 - 15 mmol/L [facility] BUN 18 6 - 25 mg/dL [facility] Creatinine 1.10 0.80 - 1.30 mg/dL [facility] Glucose 85 70 - 199 mg/dL [facility] Comment: Interpretive Data Fasting [...] 2022. Calcium 9.1 8.5 - 10.3 mg/dL [facility] Blood 05/28/2024 3:36 AM BASKET SORTER 05/28/2024 4:30 AM BASKET SORTER Leo Manzano MD LAB BLOOD ORDERABLES Final Result [facility] [place] [address] * Lidocaine level (05/27/2024 3:29 AM BASKET SORTER) Pathologist [facility] Lidocaine (Xylocaine) 1.5 1.5 - 5.0 mcg/mL Blood 05/27/2024 3:29 AM BASKET SORTER 05/27/2024 4:21 AM BASKET SORTER Gonzalez Lamar DO LAB BLOOD ORDERABLES Fin al Result [facility] [place] [address] * Type and screen (05/27/2024 3:29 AM BASKET SORTER) [facility] Ellen, indirect Negative ABO Rh A Positive [facility] Blood 05/27/2024 3:29 AM BASKET SORTER 05/27/2024 4:33 AM BASKET SORTER Narrative [facility] - 05/27/2024 5:33 AM BASKET SORTER Has the patient had Daratumumab or Isatuximab in the past 6 months?->Unknown Moriah Amin FINANCE LEAD LAB BLOOD BANK TEST ORDERABLE S Final Result Performing Organization Address [facility] Co de Phone Number [facility] Department [place] [address] * eGFR (05/26/2024 4:38 AM BASKET SORTER) Pathologist [facility] eGFR 86 >=60 mL/min/1. 73 m2 [...] last reviewed 2021. Blood 05/26/2024 4:38 AM BASKET SORTER 05/26/2024 5:46 AM BASKET SORTER Moriah Amin FINANCE LEAD LAB BLOOD ORDERABLES Final Re sult Performing Organization Address [facility] Co de Phone Number [facility] [place] [address] * Lidocaine level (05/26/2024 4:38 AM BASKET SORTER) Lidocaine (Xylocaine) 1.8 1.5 - 5.0 mcg/mL Blood 05/26/2024 4:38 AM BASKET SORTER 05/26/2024 5:46 AM BASKET SORTER Gonzalez Lamar DO LAB BLOOD ORDERABLES Fin al Result Performing Organization Address [facility] Co de Phone Number [facility] [place] [address] * (ABNORMAL) CBC without differential (05/26/2024 4:38 AM BASKET SORTER) WBC 5.5 3.8 - 9.9 K/cumm Hgb 11.5(L) 13.0 - 17.5 g/dL [facility] Hct 34.0(L) 38.9 - 50.3 % [facility] Plt 222 150 - 400 K/cumm [facility] MPV 9.7 9.1 - 12.3 fL [facility] RBC 3.67(L) 4.30 - 5.80 M/cumm [facility] MCV 92.6 81.3 - 96.4 fL [facility] MCH 31.3 27.1 - 33.3 pg [facility] MCHC 33.8 32.3 - 35.7 g/dL [facility] RDW CV 13.3 11.1 - 14.9 % [facility] RDW SD 45.5 35.7 - 48.1 fL [facility] NRBC abs 0.00 0.00 - 0.01 K/cumm [facility] Blood 05/26/2024 4:38 AM BASKET SORTER 05/26/2024 5:46 AM BASKET SORTER Moriah Amin NP LAB BLOOD ORDERABLES Final Re sult [facility] Department [place] [address] * Basic metabolic panel (05/26/2024 4:38 AM BASKET SORTER) Sodium 141 135 - 145 mmol/L Potassium, pl 3.9 3.3 - 4.9 mmol/L [facility] Chloride 107 97 - 110 mmol/L [facility] CO2 26 22 - 32 mmol/L [facility] Anion gap 8 2 - 15 mmol/L [facility] BUN 15 6 - 25 mg/dL [facility] Creatinine 1.16 0.80 - 1.30 mg/dL [facility] Glucose 78 70 - 199 mg/dL [facility] Comment: Interpretive Data Fasting [...] 2022. Calcium 8.6 8.5 - 10.3 mg/dL [facility] Blood 05/26/2024 4:38 AM BASKET SORTER 05/26/2024 5:46 AM BASKET SORTER Moriah Amin FINANCE LEAD LAB BLOOD ORDERABLES Final Re sult [facility] Department [place] [address] * eGFR (05/25/2024 4:20 PM BASKET SORTER) eGFR >90 >=60 mL/min/1. 73 m2 Comment: [...] last reviewed 2021. Blood 05/25/2024 4:20 PM BASKET SORTER 05/25/2024 4:33 PM BASKET SORTER Moriah Amin FINANCE LEAD LAB BLOOD ORDERABLES Final Re sult Performing Organization Address [facility]/ZIP Co de Phone Number [facility] [place] [employer] [place] [address] * Lidocaine level (05/25/2024 4:20 PM BASKET SORTER) [facility] Lidocaine (Xylocaine) 2.1 1.5 - 5.0 mcg/mL Blood 05/25/2024 4:20 PM BASKET SORTER 05/25/2024 4:33 PM BASKET SORTER Narrative [facility] - 05/25/2024 5:02 PM BASKET SORTER Draw 24 hours after infusion started. Moriah Amin FINANCE LEAD LAB BLOOD ORDERABLES Final Re sult Performing Organization Address [facility] Co de Phone Number [facility] [place] [address] * (ABNORMAL) CBC without differential (05/25/2024 4:20 PM BASKET SORTER) [facility] WBC 6.1 3.8 - 9.9 K/cumm Hgb 12.1(L) 13.0 - 17.5 g/dL [facility] Hct 36.3(L) 38.9 - 50.3 % [facility] Plt 246 150 - 400 K/cumm [facility] MPV 9.6 9.1 - 12.3 fL [facility] RBC 4.03(L) 4.30 - 5.80 M/cumm [facility] MCV 90.1 81.3 - 96.4 fL [facility] MCH 30.0 27.1 - 33.3 pg [facility] MCHC 33.3 32.3 - 35.7 g/dL [facility] RDW CV 13.3 11.1 - 14.9 % [facility] RDW SD 44.0 35.7 - 48.1 fL [facility] NRBC abs 0.00 0.00 - 0.01 K/cumm [facility] Blood 05/25/2024 4:20 PM BASKET SORTER 05/25/2024 4:33 PM BASKET SORTER Moriah Amin FINANCE LEAD LAB BLOOD ORDERABLES Final Re sult Performing Organization Address City/[facility] Co de Phone Number [facility] Department [place] [address] * Basic metabolic panel (05/25/2024 4:20 PM BASKET SORTER) [facility] Sodium 140 135 - 145 mmol/L Potassium, pl 3.9 3.3 - 4.9 mmol/L [facility] Chloride 106 97 - 110 mmol/L [facility] CO2 25 22 - 32 mmol/L [facility] Anion gap 9 2 - 15 mmol/L [facility] BUN 10 6 - 25 mg/dL [facility] Creatinine 0.92 0.80 - 1.30 mg/dL [facility] Glucose 98 70 - 199 mg/dL [facility] Comment: Interpretive Data Fasting [...] 2022. Calcium 8.9 8.5 - 10.3 mg/dL [facility] Blood 05/25/2024 4:20 PM BASKET SORTER 05/25/2024 4:33 PM BASKET SORTER Moriah Amin FINANCE LEAD LAB BLOOD ORDERABLES Final Re sult Performing Organization Address [facility] Co de Phone Number [facility] Department [place] [address] * Critical Care (05/25/2024 8:12 AM BASKET SORTER) Narrative Rafiq Rodriguez MD - 05/25/2024 8:12 AM BASKET SORTER Moriah Amin NP ? 05/25/2024 ??3:35 PM [...] plan with the patient's team and other medical/senior environmental consultant staff. This time was in addition to and separate from care provided by other practitioners on this day of service. ?? Moriah Amin FINANCE LEAD IN CLINIC/BEDSIDE ORDERABLES Final Result * POCT glucose (05/25/2024 4:16 AM BASKET SORTER) Glucose, POC 117 70 - 199 mg/dL Blood 05/25/2024 4:16 AM BASKET SORTER 05/25/2024 4:16 AM BASKET SORTER Gonzalez Lamar DO LAB POCT ORDERABLES - DE VICE Final Result Performing Organization Address [facility] Phone Number [facility] [place] [employer] [place] [address] * POCT glucose (05/24/2024 11:36 PM BASKET SORTER) Glucose, POC 116 70 - 199 mg/dL Blood 05/24/2024 11:3 6 PM BASKET SORTER 05/24/2024 11:36 PM BASKET SORTER Gonzalez Lamar DO LAB POCT ORDERABLES - DE VICE Final Result Performing Organization Address [facility] Co ca Phone Number [facility] [place] [address] * POCT glucose (05/24/2024 8:50 PM BASKET SORTER) Glucose, POC 123 70 - 199 mg/dL Blood 05/24/2024 8:50 PM BASKET SORTER 05/24/2024 8:50 PM BASKET SORTER Gonzalez Lamar DO LAB POCT ORDERABLES - DE VICE Final Result [facility] Department [place] [address] * Critical Care (05/24/2024 8:47 PM BASKET SORTER) Narrative Ag Lemos MD - 05/24/2024 8:47 PM BASKET SORTER Ag Lemos MD ? 05/25/2024 ??6:53 AM [...] plan with the ICU team and other medical/senior environmental consultant staff, making frequent assessments and decisions [...] Final Result * eGFR (05/24/2024 5:43 PM BASKET SORTER) Pathologist [facility] eGFR >90 >=60 mL/min/1. 73 m2 Comment: [...] last reviewed 2021. Blood 05/24/2024 5:43 PM BASKET SORTER 05/24/2024 6:00 PM BASKET SORTER us Gonzalez Lamar DO LAB BLOOD ORDERABLES Fin al Result [facility] One [facility] Department of Laboratories [place], [place] [id number] * Differential, auto (05/24/2024 5:43 PM BASKET SORTER) Pathologist [facility] Neutrophil abs 4.9 1.5 - 6.5 K/cumm Imm gran abs 0.0 0.0 - 0.1 K/cumm [facility] Lymphocyte abs 1.4 0.8 - 3.3 K/cumm [facility] Monocyte abs 0.8 0.2 - 0.8 K/cumm [facility] Eosinophil abs 0.1 0.0 - 0.5 K/cumm [facility] Basophil abs 0.1 0.0 - 0.1 K/cumm [facility] Neutrophil pct 67.4 % [facility] Comment: Interpretive Data Percent cell count reference ranges are not reported, since discordance with absolute values may lead to misinterpretation of CBC data. Current Interpretive Data was last revised on 2017. Imm gran pct 0.4 % [facility] Comment: Interpretive Data Percent cell count reference ranges are not reported, since discordance with absolute values may lead to misinterpretation of CBC data. Current Interpretive Data was last revised on 2017. Lymphocyte pct 19.4 % [facility] Comment: Interpretive Data Percent cell count reference ranges are not reported, since discordance with absolute values may lead to misinterpretation of CBC data. Current Interpretive Data was last revised on 2017. Monocyte pct 11.3 % [facility] Comment: Interpretive Data Percent cell count reference ranges are not reported, since discordance with absolute values may lead to misinterpretation of CBC data. Current Interpretive Data was last revised on 2017. Eosinophil pct 0.8 % [facility] Comment: Interpretive Data Percent cell count reference ranges are not reported, since discordance with absolute values may lead to misinterpretation of CBC data. Current Interpretive Data was last revised on 2017. Basophil pct 0.7 % [facility] Comment: Interpretive Data Percent cell count reference ranges are not reported, since discordance with absolute values may lead to misinterpretation of CBC data. Current Interpretive Data was last revised on 2017. Blood 05/24/2024 5:4 3 PM BASKET SORTER 05/24/2024 6:00 PM BASKET SORTER us Gonzalez Lamar DO LAB BLOOD ORDERABLES Fin al Result [facility] Department [place] [address] * (ABNORMAL) CBC with auto differential (05/24/2024 5:43 PM BASKET SORTER) [facility] WBC 7.2 3.8 - 9.9 K/cumm Hgb 11.5(L) 13.0 - 17.5 g/dL [facility] Hct 34.7(L) 38.9 - 50.3 % [facility] Plt 233 150 - 400 K/cumm [facility] MPV 9.2 9.1 - 12.3 fL [facility] RBC 3.77(L) 4.30 - 5.80 M/cumm [facility] MCV 92.0 81.3 - 96.4 fL [facility] MCH 30.5 27.1 - 33.3 pg [facility] MCHC 33.1 32.3 - 35.7 g/dL [facility] RDW CV 13.0 11.1 - 14.9 % [facility] RDW SD 43.8 35.7 - 48.1 fL [facility] NRBC abs 0.00 0.00 - 0.01 K/cumm [facility] Blood 05/24/2024 5:43 PM BASKET SORTER 05/24/2024 6:00 PM BASKET SORTER us Gonzalez Lamar DO LAB BLOOD ORDERABLES Fin al Result Performing Organization Address [facility]/ZIP Co de Phone Number [facility] Department [place] [address] * Lactate, whole blood (05/24/2024 5:43 PM BASKET SORTER) [facility] Lactate, bld 0.7 0.7 - 2.0 mmol/L Blood 05/24/2024 5:43 PM BASKET SORTER 05/24/2024 5:50 PM BASKET SORTER us Moriah Amin FINANCE LEAD LAB BLOOD ORDERABLES Final Re sult [facility] [place] [place] [address] * Phosphorus (05/24/2024 5:43 PM BASKET SORTER) Pathologist [facility] Phosphorus, pl 2.7 2.3 - 4.5 mg/dL Blood 05/24/2024 5:43 PM BASKET SORTER 05/24/2024 6:00 PM BASKET SORTER Gonzalez Lamar DO LAB BLOOD ORDERABLES Fin al Result Performing Organization Address [facility]/[place] [address] * Magnesium (05/24/2024 5:43 PM BASKET SORTER) Pathologist [facility] Magnesium 2.0 1.4 - 2.5 mg/dL Blood 05/24/2024 5:43 PM BASKET SORTER 05/24/2024 6:00 PM BASKET SORTER Gonzalez Lamar DO LAB BLOOD ORDERABLES Fin al Result Performing Organization Address [facility] de Phone Number [facility] [place] [place] [address] * Amylase (05/24/2024 5:43 PM BASKET SORTER) Pathologist [facility] Amylase 35 30 - 99 Units/L Blood 05/24/2024 5:43 PM BASKET SORTER 05/24/2024 6:00 PM BASKET SORTER Moriah Amin FINANCE LEAD LAB BLOOD ORDERABLES Final Re sult Performing Organization Address [facility] [place] [address] * Comprehensive metabolic panel (05/24/2024 5:43 PM BASKET SORTER) Pathologist [facility] Sodium 140 135 - 145 mmol/L Potassium, pl 3.9 3.3 - 4.9 mmol/L [facility] Chloride 105 97 - 110 mmol/L [facility] CO2 25 22 - 32 mmol/L [facility] Anion gap 10 2 - 15 mmol/L [facility] BUN 6 6 - 25 mg/dL [facility] Creatinine 0.88 0.80 - 1.30 mg/dL [facility] Glucose 86 70 - 199 mg/dL [facility] Comment: Interpretive Data Fasting [...] 2022. Calcium 8.9 8.5 - 10.3 mg/dL [facility] Bilirubin, total 0.8 0.1 - 1.2 mg/dL [facility] Protein, pl 6.7 6.5 - 8.5 g/dL [facility] Albumin 4.1 3.5 - 5.0 g/dL [facility] Alk phos 81 40 - 130 Units/L [facility] ALT 15 7 - 55 Units/L [facility] AST 17 10 - 50 Units/L [facility] Blood 05/24/2024 5:43 PM BASKET SORTER 05/24/2024 6:00 PM BASKET SORTER us Gonzalez Lamar DO LAB BLOOD ORDERABLES Fin al Result [facility] One [facility] Department of Laboratories [place], [place] [id number] * POCT glucose (05/24/2024 3:52 PM BASKET SORTER) Pathologist [facility] Glucose, POC 84 70 - 199 mg/dL Blood 05/24/2024 3:52 PM BASKET SORTER 05/24/2024 3:52 PM BASKET SORTER us Gonzalez Lamar DO LAB POCT ORDERABLES - DE VICE Final Result Performing Organization Address [facility] [place] [address] * POCT glucose (05/24/2024 11:06 AM BASKET SORTER) Glucose, POC 138 70 - 199 mg/dL Blood 05/24/2024 11:0 6 AM BASKET SORTER 05/24/2024 11:06 AM BASKET SORTER us Gonzalez Otoniel Lamar DO LAB POCT ORDERABLES - DE VICE Final Result Performing Organization Address [facility] [place] [address] * POCT glucose (05/24/2024 7:46 AM BASKET SORTER) Glucose, POC 86 70 - 199 mg/dL Blood 05/24/2024 7:46 AM BASKET SORTER 05/24/2024 7:46 AM BASKET SORTER Gonzalez Lamar DO LAB POCT ORDERABLES - DE VICE Final Result Performing Organization Address [facility] [place] [address] * Critical Care (05/24/2024 6:15 AM BASKET SORTER) Narrative Rafiq Rodriguez MD - 05/24/2024 6:15 AM BASKET SORTER Moriah Amin NP ? 05/24/2024 ??5:42 PM [...] plan with the ICU team and other medical/senior environmental consultant staff, making frequent assessments and decisions [...] the following conditions: ?? us Moriah Amin FINANCE LEAD IN CLINIC/BEDSIDE ORDERABLES Final Result * POCT glucose (05/24/2024 3:23 AM BASKET SORTER) Glucose, POC 85 70 - 199 mg/dL Blood 05/24/2024 3:23 AM BASKET SORTER 05/24/2024 3:23 AM BASKET SORTER us Gonzalez Lamar DO LAB POCT ORDERABLES - DE VICE Final Result Performing Organization Address City/[facility]/ZIP Co de Phone Number [facility] Department [place] [address] * POCT glucose (05/23/2024 11:04 PM BASKET SORTER) Glucose, POC 84 70 - 199 mg/dL Blood 05/23/2024 11:0 4 PM BASKET SORTER 05/23/2024 11:04 PM BASKET SORTER Gonzalez Lamar DO LAB POCT ORDERABLES - DE VICE Final Result Performing Organization Address City/[facility]/ZIP Co de [facility] [place] [place] [address] * Lactate (05/23/2024 8:33 PM BASKET SORTER) Lactate 0.7 0.7 - 2.0 mmol/L Blood 05/23/2024 8:33 PM BASKET SORTER 05/23/2024 9:39 PM BASKET SORTER us Gonzalez Frederick Silvanaaamir DO LAB BLOOD ORDERABLES Fin al Result Performing Organization Address [facility] Co de Phone Number [facility] Department [place] [address] * eGFR (05/23/2024 8:33 PM BASKET SORTER) eGFR >90 >=60 mL/min/1. 73 m2 Comment: [...] last reviewed 2021. Blood 05/23/2024 8:33 PM BASKET SORTER 05/23/2024 9:17 PM BASKET SORTER us Gonzalez Lamar DO LAB BLOOD ORDERABLES Fin al Result Performing Organization Address City/[facility] Co de Phone Number [facility] [place] [address] * Differential, auto (05/23/2024 8:33 PM BASKET SORTER) Neutrophil abs 3.9 1.5 - 6.5 K/cumm Imm gran abs 0.0 0.0 - 0.1 K/cumm [facility] Lymphocyte abs 1.9 0.8 - 3.3 K/cumm [facility] Monocyte abs 0.8 0.2 - 0.8 K/cumm [facility] Eosinophil abs 0.0 0.0 - 0.5 K/cumm [facility] Basophil abs 0.0 0.0 - 0.1 K/cumm [facility] Neutrophil pct 58.1 % [facility] Comment: Interpretive Data Percent cell count reference ranges are not reported, since discordance with absolute values may lead to misinterpretation of CBC data. Current Interpretive Data was last revised on 2017. Imm gran pct 0.4 % [facility] Comment: Interpretive Data Percent cell count reference ranges are not reported, since discordance with absolute values may lead to misinterpretation of CBC data. Current Interpretive Data was last revised on 2017. Lymphocyte pct 28.1 % [facility] Comment: Interpretive Data Percent cell count reference ranges are not reported, since discordance with absolute values may lead to misinterpretation of CBC data. Current Interpretive Data was last revised on 2017. Monocyte pct 12.4 % [facility] Comment: Interpretive Data Percent cell count reference ranges are not reported, since discordance with absolute values may lead to misinterpretation of CBC data. Current Interpretive Data was last revised on 2017. Eosinophil pct 0.4 % [facility] Comment: Interpretive Data Percent cell count reference ranges are not reported, since discordance with absolute values may lead to misinterpretation of CBC data. Current Interpretive Data was last revised on 2017. Basophil pct 0.6 % [facility] Comment: Interpretive Data Percent cell count reference ranges are not reported, since discordance with absolute values may lead to misinterpretation of CBC data. Current Interpretive Data was last revised on 2017. Blood 05/23/2024 8:33 PM BASKET SORTER 05/23/2024 9:29 PM BASKET SORTER Gonzalez Lamar DO LAB BLOOD ORDERABLES Fin al Result Performing Organization Address City/[facility] Co de Phone Number [facility] [place] [address] * (ABNORMAL) Calcium, ionized (05/23/2024 8:33 PM BASKET SORTER) [facility] Calcium, Ionized 4.48(L) 4.50 - 5.10 mg/dL Blood 05/23/2024 8:33 PM BASKET SORTER 05/23/2024 9:17 PM BASKET SORTER Gonzalez Lamar DO LAB BLOOD ORDERABLES Fin al Result Performing Organization Address [facility] de Phone Number [facility] [place] [address] * (ABNORMAL) CBC with auto differential (05/23/2024 8:33 PM BASKET SORTER) [facility] WBC 6.8 3.8 - 9.9 K/cumm Hgb 11.4(L) 13.0 - 17.5 g/dL [facility] Hct 33.7(L) 38.9 - 50.3 % [facility] Plt 237 150 - 400 K/cumm [facility] MPV 9.5 9.1 - 12.3 fL [facility] RBC 3.80(L) 4.30 - 5.80 M/cumm [facility] MCV 88.7 81.3 - 96.4 fL [facility] MCH 30.0 27.1 - 33.3 pg [facility] MCHC 33.8 32.3 - 35.7 g/dL [facility] RDW CV 13.0 11.1 - 14.9 % [facility] RDW SD 42.2 35.7 - 48.1 fL [facility] NRBC abs 0.00 0.00 - 0.01 K/cumm [facility] Blood 05/23/2024 8:33 PM BASKET SORTER 05/23/2024 9:29 PM BASKET SORTER Gonzalez Lamar LAB BLOOD ORDERABLES Fin al Result Performing Organization Address [facility] de Phone Number [facility] [place] [address] * aPTT (05/23/2024 8:33 PM BASKET SORTER) aPTT 31 28 - 38 sec Comment: Interpretive Data Heparin therapeutic range: 66.0 - 100.0 seconds. Range based on correlation with therapeutic heparin activity range of 0.3 - 0.7 Units/mL. Current interpretive data was last revised on 2023. Blood 05/23/2024 8:33 PM BASKET SORTER 05/23/2024 9:20 PM BASKET SORTER Gonzalez Frederick Willard ARECHIGA LAB BLOOD ORDERABLES Fin al Result Performing Organization Address [facility] de Phone Number [facility] [place] [address] * (ABNORMAL) Protime-INR (05/23/2024 8:33 PM BASKET SORTER) PT 14.6(H) 9.7 - 13.0 sec INR 1.34(H) 0.90 - 1.20 [facility] Comment: Interpretive data Oral anticoagulant therapeutic ranges: Venous thromboembolism prophylaxis or treatment: 2.0-3.0 CARDIOLOGY Standard range: 2.0-3.0 High-intensity range: 2.5-3.5 Refer to indication-specific guidelines for appropriate target ranges for prosthetic heart valve replacement. Current interpretive data was last revised on 2019. Blood 05/23/2024 8:33 PM BASKET SORTER 05/23/2024 9:20 PM BASKET SORTER Gonzalez Otoniel Lamar DO LAB BLOOD ORDERABLES Fin al Result Performing Organization Address [facility]/State/ZIP Co de Phone Number [facility] [place] [address] * Type and screen (05/23/2024 8:33 PM BASKET SORTER) Ellen, indirect Negative ABO Rh A Positive [facility] Blood 05/23/2024 8:33 PM BASKET SORTER 05/23/2024 9:31 PM BASKET SORTER Narrative [facility] - 05/23/2024 10:36 PM BASKET SORTER Has the patient had Daratumumab or Isatuximab in the past 6 months?->Unknown Moriah Amin FINANCE LEAD LAB BLOOD BANK TEST ORDERABLE S Final Result Performing Organization Address [facility] Co de Phone Number [facility] [place] [address] * Phosphorus (05/23/2024 8:33 PM BASKET SORTER) Pathologist [facility] Phosphorus, pl 2.5 2.3 - 4.5 mg/dL Blood 05/23/2024 8:33 PM BASKET SORTER 05/23/2024 9:17 PM BASKET SORTER Gonzalez Lamar DO LAB BLOOD ORDERABLES Fin al Result Performing Organization Address [facility] de Phone Number [facility] [place] [address] * Magnesium (05/23/2024 8:33 PM BASKET SORTER) Pathologist [facility] Magnesium 2.0 1.4 - 2.5 mg/dL Blood 05/23/2024 8:33 PM BASKET SORTER 05/23/2024 9:17 PM BASKET SORTER Gonzalez Lamar DO LAB BLOOD ORDERABLES Fin al Result Performing Organization Address [facility] [facility] Co de Phone Number [facility] [place] [address] * Creatine kinase (CK), total (05/23/2024 8:33 PM BASKET SORTER) CK 159 40 - 300 Units/L Blood 05/23/2024 8:33 PM BASKET SORTER 05/23/2024 9:17 PM BASKET SORTER us Gonzalez Otoniel Silvanaaamir DO LAB BLOOD ORDERABLES Fin al Result [facility] One [facility] Department [place] [address] * (ABNORMAL) Comprehensive metabolic panel (05/23/2024 8:33 PM BASKET SORTER) Pathologist [facility] Sodium 141 135 - 145 mmol/L Potassium, pl 3.2(L) 3.3 - 4.9 mmol/L [facility] Chloride 105 97 - 110 mmol/L [facility] CO2 25 22 - 32 mmol/L [facility] Anion gap 11 2 - 15 mmol/L [facility] BUN 11 6 - 25 mg/dL [facility] Creatinine 1.03 0.80 - 1.30 mg/dL [facility] Glucose 84 70 - 199 mg/dL [facility] Comment: Interpretive Data Fasting [...] 2022. Calcium 9.0 8.5 - 10.3 mg/dL [facility] Bilirubin, total 1.2 0.1 - 1.2 mg/dL [facility] Protein, pl 7.0 6.5 - 8.5 g/dL [facility] Albumin 4.2 3.5 - 5.0 g/dL [facility] Alk phos 83 40 - 130 Units/L [facility] ALT 15 7 - 55 Units/L [facility] AST 16 10 - 50 Units/L [facility] Blood 05/23/2024 8:33 PM BASKET SORTER 05/23/2024 9:17 PM BASKET SORTER Gonzalez Lamar DO LAB BLOOD ORDERABLES Fin al Result Performing Organization Address [facility] Co de Phone Number JAIRON [facility] One [facility] Department [place] [address] * CT Body Outside Reference (05/23/2024 8:22 PM BASKET SORTER) Impressions RAD_PACS_[facility] - 05/23/2024 8:22 PM BASKET SORTER These images are for Reference purposes only and have not been reviewed by [facility] Radiology. ??There will be no report generated by a [facility] Radiologist. Narrative RAD_PACS_[facility] - 05/23/2024 8:22 PM BASKET SORTER EXAMINATION: ??Images For Reference Purposes Only Gadiel Ireland MD IMG CT PROCEDURES Final Result Performing Organization Address [facility] de Phone Number [email or web address] * CT Body Outside Consult (05/23/2024 8:18 PM BASKET SORTER) Anatomical Region Laterality Modality Body N/A Computed Tomogra phy 05/24/2024 8:05 AM BASKET SORTER Impressions 05/24/2024 8:05 AM BASKET SORTER 1. ??Unchanged thoracoabdominal aortic dissection status post [...] images may or may not represent the [place] source data set and thus may contain changes that may lower the accuracy of this second-opinion interpretation. Electronically signed by: Shahrzad Zimmerman M.D. Narrative 05/24/2024 8:05 AM BASKET SORTER EXAMINATION: RADIOLOGY CONSULTATION ON OUTSIDE IMAGING STUDY STUDY INITIALLY PERFORMED: 05/23/2024 at [place]. TYPE OF STUDY: Multiple CT images of [...] IMAGING STUDY STUDY INITIALLY PERFORMED: 05/23/2024 at [place]. TYPE OF STUDY: Multiple CT images of [...] images may or may not represent the [place] source data set and thus may contain changes that may lower the accuracy of this second-opinion interpretation. Electronically signed by: Shahrzad Zimmerman M.D. us Gadiel Ireland MD IMG CT PROCEDURES Final Result * POCT glucose (05/23/2024 7:47 PM BASKET SORTER) Glucose, POC 80 70 - 199 mg/dL Blood 05/23/2024 7:47 PM BASKET SORTER 05/23/2024 7:47 PM BASKET SORTER us Gonzalezallan Lamar DO LAB POCT ORDERABLES - DE VICE Final Result JAIRON [facility] Department [place] [address] * POCT Rapid HIV Antibody Community Screening-[place] Eligible (05/21/2024 7:35 PM BASKET SORTER) [facility] Rapid HIV, POC Negative Negative Lot Number [id number] QC Control Line Acceptable Blood 05/21/2024 7:35 PM BASKET SORTER Marcus Amaya MD POINT OF CARE TEST ORD ERABLES Final Result * (ABNORMAL) Oxycodone Confirmation, Urine (05/21/2024 5:34 PM BASKET SORTER) Pathologist [facility] Oxycodone Conf, Ur Confirmed Positive(A) CutOff [...] needed. Performance characteristics were determined by the [facility] in a manner consistent with CLIA requirement and has not been cleared or approved by the U.S. Food and Drug Administration. Current interpretive data was last revised 2020. Urine 05/21/2024 5:34 PM BASKET SORTER 05/21/2024 5:46 PM BASKET SORTER Marcus Amaya MD LAB URINE ORDERABLES F inal Result Performing Organization Address [facility] Co de Phone Number JAIRON [facility] [place] [place] [address] * (ABNORMAL) Fentanyl Confirmation, Urine (05/21/2024 5:34 PM BASKET SORTER) Fentanyl Conf, Ur Confirmed Positive(A) Cutoff 0.3ng/mL [...] needed. Performance characteristics were determined by the [facility] in a manner consistent with CLIA requirement and has not been cleared or approved by the U.S. Food and Drug Administration. Current interpretive data was last revised 2020. Urine 05/21/2024 5:34 PM BASKET SORTER 05/21/2024 5:46 PM BASKET SORTER Marcus Amaya MD LAB URINE ORDERABLES F inal Result Performing Organization Address [facility] Co de Phone Number [facility] [place] [place] [address] * (ABNORMAL) Drugs of Abuse Screen, Urine with Reflex Confirmation (05/21/2024 5:34 PM BASKET SORTER) Amphetamine, ur Screen Positive, presumptive (A) CutOff [...] Barbiturates, ur Not Detected CutOff 200ng/mL [facility] Comment: Interpretive Data - Barbiturates: ??Samples containing greater than 200 ng/mL secobarbital or other cross-reacting barbiturate compounds are reported as positive. ??False positive and false negative results are possible. Confirmatory testing required for definitive results. Current Interpretive Data was last reviewed 2022. Benzodiazepines, ur Screen Positive, presumptive (A) CutOff 100ng/mL [facility] Comment: Interpretive Data - Benzodiazepines: ??Samples containing greater than 100 ng/mL nordiazepam or other cross-reacting compounds are reported as positive. False positive and false negative results are possible. Confirmatory testing required for definitive results. Current Interpretive Data was last reviewed 2022. Cannabinoids, ur Screen Positive, presumptive (A) CutOff 50 ng/mL [facility] Comment: Interpretive Data - Cannabinoids: ??Samples containing greater than 50 ng/mL delta-9 THC -COOH or other cross-reacting compounds are reported as positive. ??False positive and false negative results are possible. ??Confirmatory testing required for definitive results. Current Interpretive Data was last reviewed 2022. Cocaine, ur Not Detected CutOff 150ng/mL [facility] Comment: Interpretive Data - Cocaine: ??Samples containing greater than 150 ng/mL benzoylecgonine or other cross-reacting compounds are reported as positive. False positive and false negative results are possible. Confirmatory testing required for definitive results. Current Interpretive Data was last reviewed 2022. Fentanyl, Ur Screen Positive, presumptive (A) CutOff 5 ng/mL [facility] Comment: Interpretive Data - Fentanyl: ?? Samples containing greater than 5 ng/mL norfentanyl, fentanyl, or other cross-reacting fentanyl compounds are reported as positive. False positive and false negative results are possible. Confirmatory testing required for definitive results. Current Interpretive Data was last reviewed 2023. Methadone, ur Not Detected CutOff 300ng/mL [facility] Comment: Interpretive Data - Methadone: ??Samples containing greater than 300 ng/mL d,l-methadone or other cross-reacting compounds are reported as positive. ??False positive and false negative results are possible. Confirmatory testing required for definitive results. Current Interpretive Data was last reviewed 2022. Opiates, ur Not Detected CutOff 300ng/mL [facility] Comment: Interpretive Data - Opiates: ??Samples containing greater than 300 ng/mL morphine or other cross-reacting compounds are reported as positive. ??False positive and false negative results are possible. Confirmatory testing required for definitive results. Current Interpretive Data was last reviewed 2022. Oxycodone, ur Screen Positive, presumptive (A) CutOff 100ng/mL [facility] Comment: Interpretive Data - Oxycodone: ??Samples containing greater than 100 ng/mL oxycodone or other cross-reacting compounds are reported as ??positive. ??False positive and false negative results are possible. Confirmatory testing required for definitive results. Current Interpretive Data was last reviewed 2022. Phencyclidine, ur Not Detected CutOff 25 ng/mL [facility] Comment: Interpretive Data - Phencyclidine: ??Samples containing greater than 25 ng/mL phencyclidine or other cross-reacting compounds are reported as positive. ??False positive and false negative results are possible. Confirmatory testing required for definitive results. Current Interpretive Data was last reviewed 2022. Urine Creatinine 357 mg/dL [facility] Comment: Interpretive Data Urine Creatinine: < 10 mg/dL is extremely dilute = or > 10 but < 20 mg/dL is dilute = or > 20 mg/dL is normal Current Interpretive Data was last revised on 2017. Urine 05/21/2024 5:34 PM BASKET SORTER 05/21/2024 5:46 PM BASKET SORTER Narrative [facility] - 05/21/2024 6:16 PM BASKET SORTER Drug of Abuse screening is performed by immunoassay for medical purposes only. ??This is not to be used for Pain Management purposes. ??If Detected, confirmation testing will be performed for Amphetamines, Cocaine, Fentanyl, Methadone, Opiates, Oxycodone or Phencyclidine. Marcus Amaya MD LAB URINE ORDERABLES F inal Result Performing Organization Address City/[facility]/ZIP Co de Phone Number [facility] [place] [address] * (ABNORMAL) Urinalysis reflex to microscopic (05/21/2024 5:34 PM BASKET SORTER) Color, ur Yellow Yellow Clarity, ur Clear Clear [facility] Specific gravity, ur 1.032(H) 1.003 - 1.030 [facility] pH, urine 6.0 [facility] Comment: Interpretive Data ? Urine pH is affected by diet, medications, systemic acid-base disturbances, and renal tubular function. ??pH may affect urinary stone formation. ??For example, urine pH below 6.0 may help reduce the tendency for calcium phosphate stones and pH greater than 6.0 may reduce the tendency for uric acid stone formation. Source: [facility] [employer] Current Interpretive Data was last revised on 2017 Protein, ur ql 2+(A) Negative [facility] Glucose, ur ql Negative Negative [facility] Ketones, ur 1+(A) Negative [facility] Bilirubin, ur Negative Negative [facility] Blood, ur Negative Negative [facility] Urobilinogen, ur <2.0 <2.0 mg/dL [facility] Nitrite, ur Negative Negative [facility] Leukocyte esterase, ur Negative Negative [facility] UA reflex comment Reflex to microscopic UA will be performed. [facility] Urine 05/21/2024 5:34 PM BASKET SORTER 05/21/2024 5:39 PM BASKET SORTER Marcus Amaya MD LAB URINE ORDERABLES F inal Result Performing Organization Address City/[facility]/ZIP Co de Phone Number JAIRON [facility] Department [place] [address] * Amphetamine Confirmation, Urine (05/21/2024 5:34 PM BASKET SORTER) Amphetamine Conf, Ur Does Not Confirm CutOff [...] needed. Performance characteristics were determined by the [facility] in a manner consistent with CLIA requirement and has not been cleared or approved by the U.S. Food and Drug Administration. Current interpretive data was last revised on 2020. Urine 05/21/2024 5:34 PM BASKET SORTER 05/21/2024 5:46 PM BASKET SORTER Marcus Amaya MD LAB URINE ORDERABLES F inal Result Performing Organization Address City/[facility]/ZIP Co de Phone Number [facility] [place] [place] [address] * (ABNORMAL) Urinalysis, microscopic only (05/21/2024 5:34 PM BASKET SORTER) WBC, ur 0-5 0 - 5 /HPF RBC, ur 0-2 0 - 2 /HPF [facility] Epithelial cells, squamous, ur 1-5 0 - 5 /HPF [facility] Bacteria, ur Trace(A) [facility] Mucous, ur Present(A) [facility] Hyaline casts, ur 11-20(A) 0 - 10 /LPF [facility] Urine 05/21/2024 5:34 PM BASKET SORTER 05/21/2024 5:39 PM BASKET SORTER Marcus Amaya MD LAB URINE ORDERABLES F inal Result Performing Organization Address City[facility]/ZIP Co de Phone Number [facility] [place] [place] [address] * Sepsis Lactate w/ Reflex (05/21/2024 4:33 PM BASKET SORTER) Sepsis Lactate 1.9 0.7 - 2.0 mmol/L Blood 05/21/2024 4:33 PM BASKET SORTER 05/21/2024 4:44 PM BASKET SORTER us Marcus Amaya MD LAB BLOOD ORDERABLES F inal Result [facility]ON [facility] One [facility] Department [place] [address] * eGFR (05/21/2024 3:41 PM BASKET SORTER) eGFR 70 >=60 mL/min/1. 73 m2 Comment: [...] last reviewed 2021. Blood 05/21/2024 3:41 PM BASKET SORTER 05/21/2024 4:03 PM BASKET SORTER us Chelle Elliott MD LAB BLOOD ORDERABLES Final Result [facility]ON [facility] One [facility] Department [place] [address] * (ABNORMAL) Differential, auto (05/21/2024 3:41 PM BASKET SORTER) Neutrophil abs 6.9(H) 1.5 - 6.5 K/cumm Imm gran abs 0.0 0.0 - 0.1 K/cumm [facility] Lymphocyte abs 1.5 0.8 - 3.3 K/cumm [facility] Monocyte abs 0.9(H) 0.2 - 0.8 K/cumm [facility] Eosinophil abs 0.0 0.0 - 0.5 K/cumm [facility] Basophil abs 0.0 0.0 - 0.1 K/cumm [facility] Neutrophil pct 73.5 % [facility] Comment: Interpretive Data Percent cell count reference ranges are not reported, since discordance with absolute values may lead to misinterpretation of CBC data. Current Interpretive Data was last revised on 2017. Imm gran pct 0.3 % [facility]ON [facility] Comment: Interpretive Data Percent cell count reference ranges are not reported, since discordance with absolute values may lead to misinterpretation of CBC data. Current Interpretive Data was last revised on 2017. Lymphocyte pct 15.7 % [facility] Comment: Interpretive Data Percent cell count reference ranges are not reported, since discordance with absolute values may lead to misinterpretation of CBC data. Current Interpretive Data was last revised on 2017. Monocyte pct 10.0 % [facility] Comment: Interpretive Data Percent cell count reference ranges are not reported, since discordance with absolute values may lead to misinterpretation of CBC data. Current Interpretive Data was last revised on 2017. Eosinophil pct 0.1 % [facility] Comment: Interpretive Data Percent cell count reference ranges are not reported, since discordance with absolute values may lead to misinterpretation of CBC data. Current Interpretive Data was last revised on 2017. Basophil pct 0.4 % [facility] Comment: Interpretive Data Percent cell count reference ranges are not reported, since discordance with absolute values may lead to misinterpretation of CBC data. Current Interpretive Data was last revised on 2017. Blood 05/21/2024 3:41 PM BASKET SORTER 05/21/2024 4:06 PM BASKET SORTER Chelle Elliott MD LAB BLOOD ORDERABLES Final Result Performing Organization Address City/[facility] Co de Phone Number [facility] [place] [address] * CBC with auto differential (05/21/2024 3:41 PM BASKET SORTER) WBC 9.4 3.8 - 9.9 K/cumm Hgb 13.9 13.0 - 17.5 g/dL [facility] Hct 40.0 38.9 - 50.3 % [facility] Plt 291 150 - 400 K/cumm [facility] MPV 9.1 9.1 - 12.3 fL [facility] RBC 4.59 4.30 - 5.80 M/cumm [facility] MCV 87.1 81.3 - 96.4 fL [facility] MCH 30.3 27.1 - 33.3 pg [facility] MCHC 34.8 32.3 - 35.7 g/dL [facility] RDW CV 13.1 11.1 - 14.9 % [facility] RDW SD 41.8 35.7 - 48.1 fL [facility] NRBC abs 0.00 0.00 - 0.01 K/cumm [facility] Blood (Blood, Venous) 05/21/2024 3:41 PM BASKET SORTER 05/21/2024 4:06 PM BASKET SORTER Marcus Amaya MD LAB BLOOD ORDERABLES F inal Result Performing Organization Address City/[facility]/ZIP Co de Phone Number [facility] Department [place] [address] * Lipase (05/21/2024 3:41 PM BASKET SORTER) Lipase 15 10 - 99 Units/L Blood (Blood, Venous) 05/21/2024 3:41 PM BASKET SORTER 05/21/2024 4:03 PM BASKET SORTER us Marcus Amaya MD LAB BLOOD ORDERABLES F inal Result [facility] One [facility] [place] [address] * (ABNORMAL) Comprehensive metabolic panel (05/21/2024 3:41 PM BASKET SORTER) Sodium 136 135 - 145 mmol/L Potassium, pl 3.6 3.3 - 4.9 mmol/L [facility] Chloride 99 97 - 110 mmol/L [facility] CO2 22 22 - 32 mmol/L [facility] Anion gap 15 2 - 15 mmol/L [facility] BUN 22 6 - 25 mg/dL [facility] Creatinine 1.37(H) 0.80 - 1.30 mg/dL [facility] Glucose 92 70 - 199 mg/dL [facility] Comment: Interpretive Data Fasting [...] 2022. Calcium 10.3 8.5 - 10.3 mg/dL [facility] Bilirubin, total 1.5(H) 0.1 - 1.2 mg/dL [facility] Protein, pl 8.5 6.5 - 8.5 g/dL [facility] Albumin 5.1(H) 3.5 - 5.0 g/dL [facility] Alk phos 99 40 - 130 Units/L [facility] ALT 19 7 - 55 Units/L [facility] AST 21 10 - 50 Units/L [facility] Blood 05/21/2024 3:41 PM BASKET SORTER 05/21/2024 4:03 PM BASKET SORTER Marcus Amaya MD LAB BLOOD ORDERABLES F inal Result Performing Organization Address City/State/[facility] Co de Phone Number [facility] One [facility] [place] [address] * ECG 12-LEAD (05/21/2024 2:24 PM BASKET SORTER) Narrative [facility] - 05/21/2024 2:24 PM BASKET SORTER Huy Mack MD ? 05/21/2024 ??2:27 PM [...] Amaya MD ECG ORDERABLES Final Result [facility] * ECG 12-LEAD (05/19/2024 11:55 PM BASKET SORTER) Narrative [facility] - 05/19/2024 11:55 PM BASKET SORTER Deniz Huitron MD ? 05/19/2024 11:56 PM [...] PA Lateral 2 Views (05/19/2024 10:34 PM BASKET SORTER) Anatomical Region Laterality Modality Body, Chest N/A Computed Radiogr aphy 05/19/2024 10:4 3 PM BASKET SORTER Impressions 05/20/2024 9:03 AM BASKET SORTER Comparison is made to 07/05/2023. Thoracic aorta [...] Collins Wills M.D. Narrative 05/20/2024 9:03 AM BASKET SORTER EXAMINATION: 2 view chest radiograph Procedure Note [...] CTA Chest Abdomen Pelvis (05/19/2024 10:20 PM BASKET SORTER) Anatomical Region Laterality Modality Body N/A Computed Tomogra phy 05/19/2024 10:5 1 PM BASKET SORTER Impressions 05/20/2024 9:06 AM BASKET SORTER 1. ??Unchanged thoracoabdominal aortic dissection status post [...] Collins Wills M.D. Narrative 05/20/2024 9:06 AM BASKET SORTER EXAMINATION: ??CT ANGIOGRAPHY OF THE CHEST, ABDOMEN [...] (baseline, 2hr, 4hr, 6hr) (05/19/2024 9:12 PM BASKET SORTER) Trop I hs 4 <=35 ng/L Comment: Interpretive Data For further hscTnI resources including the diagnostic algorithm and an aid in interpretation, copy and paste this link: [email or web address].testcatalog.org/[email or web address] Current Interpretive Data last revised 2019. Blood 05/19/2024 9:12 PM BASKET SORTER 05/19/2024 9:28 PM BASKET SORTER us Cristobal Waldrop MD LAB BLOOD ORDERABLE S Final Result Performing Organization Address City/[facility]/ZIP Co de Phone Number JAIRON [facility] [place] [address] * eGFR (05/19/2024 9:12 PM BASKET SORTER) eGFR 85 >=60 mL/min/1. 73 m2 Comment: [...] last reviewed 2021. Blood 05/19/2024 9:12 PM BASKET SORTER 05/19/2024 9:28 PM BASKET SORTER us Cristobal Waldrop MD LAB BLOOD ORDERABLE S Final Result Performing Organization Address City/[facility]/ZIP Co de Phone Number JAIRON [facility] [place] [address] * (ABNORMAL) Differential, auto (05/19/2024 9:12 PM BASKET SORTER) Neutrophil abs 7.6(H) 1.5 - 6.5 K/cumm Imm gran abs 0.1 0.0 - 0.1 K/cumm [facility] Lymphocyte abs 0.9 0.8 - 3.3 K/cumm [facility] Monocyte abs 0.5 0.2 - 0.8 K/cumm [facility] Eosinophil abs 0.0 0.0 - 0.5 K/cumm [facility] Basophil abs 0.0 0.0 - 0.1 K/cumm [facility] Neutrophil pct 84.3 % [facility] Comment: Interpretive Data Percent cell count reference ranges are not reported, since discordance with absolute values may lead to misinterpretation of CBC data. Current Interpretive Data was last revised on 2017. Imm gran pct 0.7 % [facility] Comment: Interpretive Data Percent cell count reference ranges are not reported, since discordance with absolute values may lead to misinterpretation of CBC data. Current Interpretive Data was last revised on 2017. Lymphocyte pct 9.4 % [facility] Comment: Interpretive Data Percent cell count reference ranges are not reported, since discordance with absolute values may lead to misinterpretation of CBC data. Current Interpretive Data was last revised on 2017. Monocyte pct 5.3 % [facility] Comment: Interpretive Data Percent cell count reference ranges are not reported, since discordance with absolute values may lead to misinterpretation of CBC data. Current Interpretive Data was last revised on 2017. Eosinophil pct 0.1 % [facility] Comment: Interpretive Data Percent cell count reference ranges are not reported, since discordance with absolute values may lead to misinterpretation of CBC data. Current Interpretive Data was last revised on 2017. Basophil pct 0.2 % [facility] Comment: Interpretive Data Percent cell count reference ranges are not reported, since discordance with absolute values may lead to misinterpretation of CBC data. Current Interpretive Data was last revised on 2017. Blood 05/19/2024 9:12 PM BASKET SORTER 05/19/2024 9:28 PM BASKET SORTER Cristobal Waldrop MD LAB BLOOD ORDERABLE S Final Result Performing Organization Address [facility] Co de Phone Number [facility] [place] [address] * CBC with auto differential (05/19/2024 9:12 PM BASKET SORTER) [facility] WBC 9.0 3.8 - 9.9 K/cumm Hgb 13.7 13.0 - 17.5 g/dL [facility] Hct 39.7 38.9 - 50.3 % [facility] Plt 293 150 - 400 K/cumm [facility] MPV 9.2 9.1 - 12.3 fL [facility] RBC 4.53 4.30 - 5.80 M/cumm [facility] MCV 87.6 81.3 - 96.4 fL [facility] MCH 30.2 27.1 - 33.3 pg [facility] MCHC 34.5 32.3 - 35.7 g/dL [facility] RDW CV 13.2 11.1 - 14.9 % [facility] RDW SD 42.5 35.7 - 48.1 fL [facility] NRBC abs 0.00 0.00 - 0.01 K/cumm [facility] Blood 05/19/2024 9:12 PM BASKET SORTER 05/19/2024 9:28 PM BASKET SORTER Cristobal Waldrop MD LAB BLOOD ORDERABLE S Final Result Performing Organization Address City/[facility]/ZIP Co de Phone Number [facility] [place] [address] * aPTT (05/19/2024 9:12 PM BASKET SORTER) [facility] aPTT 34 28 - 38 sec Comment: Interpretive Data Heparin therapeutic range: 66.0 - 100.0 seconds. Range based on correlation with therapeutic heparin activity range of 0.3 - 0.7 Units/mL. Current interpretive data was last revised on 2023. Blood 05/19/2024 9:12 PM BASKET SORTER 05/19/2024 9:32 PM BASKET SORTER Cristobal Waldrop MD LAB BLOOD ORDERABLE S Final Result Performing Organization Address [facility] Co de Phone Number [facility] [place] [address] * (ABNORMAL) Protime-INR (05/19/2024 9:12 PM BASKET SORTER) PT 14.2(H) 9.7 - 13.0 sec INR 1.31(H) 0.90 - 1.20 [facility] Comment: Interpretive data Oral anticoagulant therapeutic ranges: Venous thromboembolism prophylaxis or treatment: 2.0-3.0 CARDIOLOGY Standard range: 2.0-3.0 High-intensity range: 2.5-3.5 Refer to indication-specific guidelines for appropriate target ranges for prosthetic heart valve replacement. Current interpretive data was last revised on 2019. Blood 05/19/2024 9:12 PM BASKET SORTER 05/19/2024 9:32 PM BASKET SORTER Cristobal Waldrop MD LAB BLOOD ORDERABLE S Final Result Performing Organization Address [facility] Co de Phone Number [facility] [place] [address] * Type and screen (05/19/2024 9:12 PM BASKET SORTER) Ellen, indirect Negative ABO Rh A Positive [facility] Blood 05/19/2024 9:12 PM BASKET SORTER 05/19/2024 9:22 PM BASKET SORTER Narrative [facility] - 05/19/2024 10:07 PM BASKET SORTER Has the patient had Daratumumab or Isatuximab in the past 6 months?->Unknown us Cristobal Waldrop MD LAB BLOOD BANK TEST ORDERABLES Final Result [facility] Department [place] [address] * (ABNORMAL) Comprehensive metabolic panel (05/19/2024 9:12 PM BASKET SORTER) Sodium 139 135 - 145 mmol/L Potassium, pl 3.9 3.3 - 4.9 mmol/L [facility] Chloride 100 97 - 110 mmol/L [facility] CO2 21(L) 22 - 32 mmol/L [facility] Anion gap 18(H) 2 - 15 mmol/L [facility] BUN 18 6 - 25 mg/dL [facility] Creatinine 1.17 0.80 - 1.30 mg/dL [facility] Glucose 108 70 - 199 mg/dL [facility] Comment: Interpretive Data Fasting [...] 2022. Calcium 10.2 8.5 - 10.3 mg/dL [facility] Bilirubin, total 1.2 0.1 - 1.2 mg/dL [facility] Protein, pl 8.7(H) 6.5 - 8.5 g/dL [facility] Albumin 5.1(H) 3.5 - 5.0 g/dL [facility] Alk phos 105 40 - 130 Units/L [facility] ALT 23 7 - 55 Units/L [facility] AST 18 10 - 50 Units/L [facility] Blood 05/19/2024 9:12 PM BASKET SORTER 05/19/2024 9:28 PM BASKET SORTER us Cristobal Waldrop MD LAB BLOOD ORDERABLE S Final Result [facility] Department [place] [address] * Hepatitis C antibody Blood (09/06/2023 11:15 [...] Edited Result - Final Performing Organization Address City/[facility] Co de Phone Number [facility] [place] [address] from Last 3 Months or Most Recently Relevant to Health Maintenance Insurance [facility] Advance Directives For more information, please contact: [phone] * Full Code (Latest Code Status on [...] Healthcare Agent Relationshi p Communication Meron Blankenship [facility] Health Care Agent Care Teams Platinum And Palladium Kettle Tender Relationship Specialty Start Date End Date [employer]ak Pain[employer] PA [address] [address] PCP - General Physician Leather Cartridge Belt Maker 06/14/24 Leo Manzano MD [address] [facility] [address] [place] [address] Surgeon Vascular Surgery 05/16/23
--- OUTSIDE RECORDS SUMMARY | 2024-07-03 10:22 | XMS_ITS | Clinical Summary ---
Author Organization [facility] Address [address] [place] [address] Care Team Providers Care Sharepoint Solutions Architect Name Role Phone Unavailable Primary Care Provider Unavailabl e Source Comments [facility] [employer],non-owned Affiliates and Associated Physician Practices is amultiple site organization consisting of ambulatory clinics and hospital sitesin [place], [place], [place] and [place]. This disclosure is being madepursuant to the Care Everywhere program and may not contain all information available regarding this patient. Last updated 18.[facility] [employer] Social History Tobacco Use Types Packs/Day Years [...]
--- OUTSIDE RECORDS SUMMARY | 2024-07-03 10:22 | XMS_ITS | Referral Summary ---
Author Organization [facility] Address [address] [place] [address] Care Team Providers Care Fresh Work Wrapper Layer Name Role Phone Unavailable Primary Care Provider Unavailabl e Source Comments [facility],non-owned Affiliates and Associated Physician Practices is amultiple site organization consisting of ambulatory clinics and hospital sitesin [place], [place], [place] and [place]. This disclosure is being madepursuant to the Care Everywhere program and may not contain all information available regarding this patient. Last updated 18.[facility] [employer] Social History Tobacco Use Types Packs/Day Years Used Date Smoking Tobacco: Never Assessed Sex and Gender Information Value Date Recorded Sex Assigned at Not on file Gender Identity Not on file Sexual Orientation Not on file Plan of Treatment Not on file
--- OUTSIDE RECORDS SUMMARY | 2024-07-03 10:22 | XMS_ITS | Encounter Summary ---
Author Organization [facility] Healthcare Address [address] [place] [address] Care Team Providers Care Box Toe Maker Name Role Phone Leo Manzano MD Unavailable [phone] Ronak Painting Primary Care Provider [phone] Reason for Visit * Reason Onset Date Comments PMC Preprocedure 07/02/2024 Encounter Details Date Type Department Care Team (Late st Contact Info) Description 07/02/2024 Telephone [facility] [place] [address] [place], [place] [id number] Adrianne Adams MD PhD [address] [place] [address] [facility] Preprocedure Social History Tobacco Use Types Packs/Day Years Used Date Smoking Tobacco: Never Smokeless Tobacco: Never Alcohol Use Standard Drinks/Week Comments Not Currently 0 (1 standard drink = 0.6 oz pur e alcohol) [facility] Utilities Answer Date Recorded In the past 12 months has [employer], gas, oil, or water company threatened to [...] often do you attend chur ch or sabianism services? Never 05/24/2024 Do you belong to any clubs o r organizations such as scientology groups, unions, fraternal or athletic groups, or [...] a chcf (including now)? Patient declined 10/02/2023 Housing Stability [...] any time in the past 12 m [facility], were you homeless or living in a chcf (including now)? No 05/24/2024 Personal Safety Answer Date Recorded Have you ever been in or are you currently in a harmful physical or emotional relationship or is someone making you feel afraid or unsafe? Denies 05/23/2024 Sex and Gender Information Value Date Recorded Sex Assigned at Not on file Legal Sex Male 3:42 AM SPOOLING MACHINE OPERATOR Gender Identity Not on file Sexual Orientation Straight 06/12/2023 11 :43 PM SPOOLING MACHINE OPERATOR documented as of this encounter Miscellaneous Notes * Telephone Encounter - Lina Chatterjee RN - 07/02/2024 12:40 PM SPOOLING MACHINE OPERATOR completed LING MACHINE OPERATOR documented in this encounter Plan of Treatment Not on file documented as of this encounter Goals Goal Patient Goal Type Associated Problems Recent Progress Patient-Stated? Author CCM Chronic Pain Care Plan Chronic Care Management No change(06/20 7:42 AM SPOOLING MACHINE OPERATOR) No Rita Landa, BRIA Note: Problem: Chronic Pain Goals: 1. Minimize further functional decline 2. Maximize quality of life 3. Control pain Strategies: - Activity/exercise program recommendation - Conservative stepwise pain medicine strategy with multi-disciplinary approach - Recommend healthy lifestyle strategies and compensatory methods as needed documented as of this encounter Visit Diagnoses Not on filedocumented in this encounter Care Teams Box Toe Maker Relationship Specialty Start Date End Date Ronak Painting PA [address] [place] [address] PCP - General Physician Digital Printer 06/14/24 Leo Manzano MD [address] [place] [address] Surgeon Vascular Surgery 05/16/23 documented as of this encounter
--- OUTSIDE RECORDS SUMMARY | 2024-07-03 10:22 | XMS_ITS | Clinical Summary ---
Author Organization [facility] Address [address] [place] [address] Phone Care Team Providers Care Technology Solutions Architect Name Role Phone [facility], External Provider Primary Care Provider U navailable [...] on file Legal Sex Male 10:28 AM COMPOTYPE OPERATOR Gender Identity Not on file Sexual Orientation Not on file Last Filed Vital Signs Vital Sign Reading Time Taken Comments Blood Pressure 142/100 08/07/2015 2:53 PM COMPOTYPE OPERATOR Pulse - - Temperature 36.7 ??C (98 ??F) 08/07/2015 10:33 AM COMPOTYPE OPERATOR Respiratory Rate 16 08/07/2015 2:53 PM COMPOTYPE OPERATOR Oxygen Saturation 100% 08/07/2015 2:53 PM COMPOTYPE OPERATOR Inhaled Oxygen Concentration - - Weight 83.9 kg (185 lb) 08/07/2015 10:33 AM COMPOTYPE OPERATOR Height 177.8 cm (5' 10 ) 08/07/2015 10:33 AM COMPOTYPE OPERATOR Body Mass Index 26.54 08/07/2015 10:33 AM COMPOTYPE OPERATOR Plan of Treatment Health Maintenance Due Date Last Done Comments DTAP/TDAP/TD VACCINES (1 - Tdap) 2011 HEPATITIS B VACCINES (1 of 3 - 19+ 3-dose series) 2011 INFLUENZA VACCINE (#1) 2023 HPV VACCINES Aged Out No longer eligi ble based on patient's age to complete this topic Insurance Care Teams Technology Solutions Architect Relationship Specialty Start Date End Date [facility], External Provider [address] [place] [address] PCP - General 08/07/15
--- OUTSIDE RECORDS SUMMARY | 2024-07-03 10:22 | XMS_ITS | Patient Health Summary ---
Author Organization [facility] Address [address] [facility] [address] [facility] [place] [address] Care Team Providers Care Program Eligibility Specialist Name Role Phone Unavailable Primary Care Provider Unavailabl e Note from [facility],non-owned Affiliates and Associated Physician Practices is amultiple site organization consisting of ambulatory clinics and hospital sitesin [place], [place], [place] and [place]. This disclosure is being madepursuant to the Care Everywhere program and may not contain all information available regarding this patient. Last updated 18.[facility] Social History Tobacco Use Types Packs/Day Years Used Date Smoking Tobacco: Never Assessed Sex and Gender Information Value Date Recorded Sex Assigned at Not on file Gender Identity Not on file Sexual Orientation Not on file
--- OUTSIDE RECORDS SUMMARY | 2024-07-03 10:22 | XMS_ITS | Encounter Summary ---
Author Organization [facility] Healthcare Address [address] [place] [address] Care Team Providers Care Sand Conditioner Name Role Phone Leo Manzano MD Unavailable [phone] Carl Strickland MD Primary Care Provider Ronak Painting Primary Care Provider + [phone] Encounter Details Date Type Department Care Team (Late st Contact Info) Description 05/25/2024 Documentation [facility] [address] [place] [address] Essie Singh RN Social History Tobacco Use Types Packs/Day Years Used Date Smoking Tobacco: Never Smokeless Tobacco: Never Alcohol Use Standard Drinks/Week Comments Not Currently 0 (1 standard drink = 0.6 oz pur e alcohol) [facility] Utilities Answer Date Recorded In the past 12 months has [employer], gas, oil, or water [employer] threatened to shut off services in your [...] week 05/24/2024 How often do you attend [facility] or islam services? Never 05/24/2024 Do you belong to [...] any time in the past 12 m [facility], were you homeless or living in a senior living (including now)? No 05/24/2024 Personal Safety Answer Date Recorded Have you ever been in or are you currently in a harmful physical or emotional relationship or is someone making you feel afraid or unsafe? Denies 05/23/2024 Sex and Gender Information Value Date Recorded Sex Assigned at Not on file Legal Sex Male 3:42 AM MATERIALS COORDINATOR Gender Identity Not on file Sexual Orientation Straight 06/12/2023 11 :43 PM MATERIALS COORDINATOR documented as of this encounter Plan of Treatment Not on file documented as of this encounter Goals Goal Patient Goal Type Associated Problems Recent Progress Patient-Stated? Author CCM Chronic Pain Care Plan Chronic Care Management No change(06/20 7:42 AM MATERIALS COORDINATOR) No Rita Landa, RN Note: Problem: Chronic Pain Goals: 1. Minimize further functional decline 2. Maximize quality of life 3. Control pain Strategies: - Activity/exercise program recommendation - Conservative stepwise pain medicine strategy with multi-disciplinary approach - Recommend healthy lifestyle strategies and compensatory methods as needed documented as of this encounter Visit Diagnoses Not on filedocumented in this encounter Care Teams Sand Conditioner Relationship Specialty Start Date End Date Carl Strickland MD [address] [facility] [address] [place] [address] PCP - General Internal Medicine 06/06/23 06/13/24 Ronak Painting PA [address] [facility] [place] [address] PCP - General Physician Mental Health Consultant 06/14/24 Leo Mnazano MD [address] [place] [address] Surgeon Vascular Surgery 05/16/23 documented as of this encounter
--- OUTSIDE RECORDS SUMMARY | 2024-07-03 10:22 | XMS_ITS | Referral Summary ---
Author Organization [facility] Address [address] [place] [address] Care Team Providers Care Skills Auditor Name Role Phone Leo Manzano MD Unavailable [phone] Ronak Painting Primary Care Provider [phone] Encounters Date Type Department Care Team Description 07/02/2024 Telephone [facility] [address] [facility] Advanced Medicine [address] [place] [address] Adrianne Adams MD PhD PMC Preprocedure 06/27/2024 1:00 PM SMOKING PIPE MOUNTER Office Visit [facility] [address] [facility] 5th [place] [address] [place] [id number] ANGI (acute kidney injury) (HCC) (Primary Dx) 06/20/2024 7:27 AM SMOKING PIPE MOUNTER - 06/20/2024 11:59 PM SMOKING PIPE MOUNTER Hospital Encounter [facility] [address] [facility] [address] [place] [address] Jeremie Macias MD Yoshida, [place], MD PhD Sacroiliitis (HCC) (Primary Dx); Spondylosis of lumbar region without myelopathy or radiculopathy Discharge Disposition: Discharge to home or self care 06/08/2024 Telephone [facility] [address] [facility] 8th [place] [address] [place] [address] Joaquín Abarca MD overdue orders 05/23/2024 7:45 PM SMOKING PIPE MOUNTER - 05/29/2024 10:36 AM SMOKING PIPE MOUNTER Hospital Encounter [address] [phone] Gonzalez Lamar DO Ohman, John Westley, MD Abdominal pain (Primary Dx) Discharge Disposition: Discharge to home or self care 05/25/[address] [phone] Essie Singh RN 05/21/2024 4:17 PM SMOKING PIPE MOUNTER - 05/21/2024 8:27 PM [facility] Emergency [facility] Emergency Department [address] [place] [phone] Marcus Amaya MD Nausea and vomiting, unspecified vomiting type (Primary Dx) Discharge Disposition: Discharge to home or self care 05/19/2024 9:40 PM SMOKING PIPE MOUNTER - 05/20/2024 1:34 AM [facility] Emergency [facility] Emergency Department [address] [place] [phone] Casandra Lock MD Renz, Nicholas Robert, MD Abdominal pain (Primary Dx); Chronic bilateral low back pain without sciatica; Abdominal aortic aneurysm dissection (HCC) Discharge Disposition: Discharge to home or self care 05/16/2024 2:39 PM SMOKING PIPE MOUNTER - 05/16/2024 11:59 PM SMOKING PIPE MOUNTER Hospital Encounter [facility] [address] [facility] [address] [place] [address] Adrianne Adams MD PhD Sacroiliitis (HCC) (Primary Dx) Discharge Disposition: Discharge to home or self care 04/24/2024 Orders Only [facility] [address] [facility] 5th [place] [address] [place] [address] Miguel Dominguez MD ANGI (acute kidney injury) [...] pain profile is the same since his [place] one, but could consider repeating if new [...] line Assessment & Plan (06/24/2023 12:04 PM SMOKING PIPE MOUNTER): - CT without discitis or osteomyelitis on 06/13 - MRI 06/13 also without discitis or osteomyelitis - no narcotic pain medications are required from vascular surgery perspective - Consult pain management team Pseudoaneurysm following procedure ([facility]) Assessment & Plan (06/24/2023 10:40 AM SMOKING PIPE MOUNTER): - s/p vascular access - Q4 N/V checks - no current surgical intervention - no activity restrictions, OOB/ ambulate Infrarenal abdominal aortic aneurysm, without ru pture 06/13/2023 Assessment & Plan (06/24/2023 10:41 AM SMOKING PIPE MOUNTER): s/p TEVAR on 06/05/23 (graft terminates above celiac take off) 06/11 discharged home; 06/13 Re admitted for worsening back pain, HTN, and subjective fever/chills. - CT 06/13 shows no change in aneurysm, no stent migration, no increase in false lumen perfusion - non operative Polysubstance abuse ([facility]) 06/10/2023 Moderate malnutrition ([facility]) 06/09/2023 Dissection of abdominal aorta ([facility]) 06/03/19 24 Urinary retention 05/16/2023 Assessment & Plan (05/16/2023 10:44 AM SMOKING PIPE MOUNTER): Patient with urinary retention requiring straight cath X1 05/15, now voiding without any issues. - Continue Flomax. - Patient requests urology follow up, referral placed. Epistaxis 05/13/2023 Assessment & Plan (05/13/2023 12:42 PM SMOKING PIPE MOUNTER): Significant nose bleed in the OR requiring intra-op ENT c/s. DL performed, no other sources of bleeding visualized. ACT post protamine 149. - ENT following - ocean spray tid - no other s/s bleeding Pneumonia 05/13/2023 Assessment & Plan (05/13/2023 12:43 PM SMOKING PIPE MOUNTER): Tracheal aspirate 05/05 with Haemophilus Inf - susana(05/04 - 05/10), linezolid (05/04-05/06) HTN (hypertension) 05/13/2023 Assessment & Plan (05/28/2024 8:41 AM SMOKING PIPE MOUNTER): BP well controlled. - continue home amlodipine [...] needed Assessment & Plan (06/24/2023 10:41 AM SMOKING PIPE MOUNTER): Difficult to control Htn. Dr. Abarca following - Continue amlodipine, lisinopril, coreg, hydralazine - SBP goal 120-140 - VS q 4 hrs and prn Assessment & Plan (06/21/2023 7:57 AM SMOKING PIPE MOUNTER): BP stable at present. Recommend discontinuation of the diltiazem and continue amlodipine (as opposed to giving two calcium channel blockers) Assessment & Plan (06/20/2023 8:33 PM SMOKING PIPE MOUNTER): BP improving. Recommend continue medications and follow up bp, except recommend discontinuation of the diltiazem as he is already on a calcium channel louie, amlodipine Assessment & Plan (06/18/2023 7:59 AM SMOKING PIPE MOUNTER): Patient with continued hypertension. Blood pressure in the right arm levels are improved now in the 130s and 140s. Recommend consideration for adjustment of medications as follows. 1. Add spironolactone 25 mg a day 2. Consider adding clonidine 0.1 mg twice a day Assessment & Plan (06/11/2023 7:50 AM SMOKING PIPE MOUNTER): Patient hypertensive. Recommend resuming hydralazine 25 mg 3 times a day. Continue the amlodipine and carvedilol. Follow-up blood pressure. The patient should have follow-up blood pressure when he leaves the hospital as well. Assessment & Plan (06/10/2023 3:48 PM SMOKING PIPE MOUNTER): Goal systolic BP 140-180 for one month [...] status Assessment & Plan (06/09/2023 10:54 AM SMOKING PIPE MOUNTER): Blood pressure well controlled at present. Medicines are being adjusted. Currently on carvedilol and hydralazine. A want to transition to amlodipine 5 mg a day to wean hydralazine, as tolerated, as 3 times a day medication can be difficult long-term Assessment & Plan (05/13/2023 12:49 PM SMOKING PIPE MOUNTER): Hx of uncontrolled HTN, non-compliant to medications. [...] time Assessment & Plan (06/11/2023 7:50 AM SMOKING PIPE MOUNTER): Clinically stable. Renal function stable. Blood pressure improved We will recommend genetic testing as an outpatient Assessment & Plan (06/10/2023 3:48 PM SMOKING PIPE MOUNTER): Presents with abdominal pain and concern for progression of dissection on CT - 06/05/23: OR s/p TEVAR extension and dissection stent placement - BP management per HTN - pain control - Q4 NV checks, Q2 VS - lovenox DVT ppx - He will f/u with Dr. Abarca as outpatient for genetics testing. Assessment & Plan (06/09/2023 10:54 AM SMOKING PIPE MOUNTER): Clinically stable. Renal function stable. Blood pressure improved We will recommend genetic testing as an outpatient Assessment & Plan (05/16/2023 10:45 AM SMOKING PIPE MOUNTER): Patient presented on 05/01 with acute Chest [...] 05/01/2023 Assessment & Plan (05/29/2024 7:45 AM SMOKING PIPE MOUNTER): 34 y/o M with hx of symptomatic Type B aortic dissection requiring TBE and subsequent extension with TEVAR/dissection stents presents as OSH transfer for significant abdominal pain. No concern for mesenteric ischemia. - c/w impulse control - regular diet - transitioned to oral anti-hypertensive - pain management following. Now off lido drip and dilaudid CASE MANAGERS. Dilaudid discontinued 05/28. Pain signed off. Assessment & Plan (10/03/2023 2:00 PM CDT): Follows with Dr Abarca Cont antihypertensives Assessment & Plan (06/18/2023 8:00 AM SMOKING PIPE MOUNTER): Aortic imaging stable on recent CT scan. Continue blood pressure control. Assessment & Plan (05/02/2023 2:02 PM SMOKING PIPE MOUNTER): 32y/o male with uncontrolled HTN who presented to an OSH ER with acute onset shortness of breath, chest pain and back pain. 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 He was transferred to [facility] for further evaluation and treatment. Here, [...] All feel these findings not to be hostess party 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 of a type a dissection, therefore [...] drink = 0.6 oz pur e alcohol) [facility] Utilities Answer Date Recorded In the past 12 months has [employer] electric, gas, oil, or water [employer] threatened to shut off services in your [...] often do you attend chur ch or buddhism services? Never 05/24/2024 Do you belong to [...] any time in the past 12 m [facility], were you homeless or [...] on file Legal Sex Male 3:42 AM SMOKING PIPE MOUNTER Gender Identity Not on file Sexual Orientation Straight 06/12/2023 11 :43 PM SMOKING PIPE MOUNTER Last Filed Vital Signs Vital Sign Reading Time Taken Comments Blood Pressure 101/67 06/27/2024 12:49 PM SMOKING PIPE MOUNTER Pulse 83 06/27/2024 12:49 PM SMOKING PIPE MOUNTER Temperature 36.6 ??C (97.8 ??F) 06/20/2024 7:35 AM CS T Respiratory Rate 15 06/20/2024 8:49 AM SMOKING PIPE MOUNTER Oxygen Saturation 96% 06/20/2024 8:49 AM SMOKING PIPE MOUNTER Inhaled Oxygen Concentration - - Weight 95.9 kg (211 lb 6.4 oz) 06/27/2024 12:49 PM SMOKING PIPE MOUNTER Height 175.3 cm (5' 9 ) 06/27/2024 12:49 PM SMOKING PIPE MOUNTER Body Mass Index 31.22 06/27/2024 12:49 PM SMOKING PIPE MOUNTER Plan of Treatment Not on file Goals Goal Patient Goal Type Associated Problems Recent Progress Patient-Stated? Author CCM Chronic Pain Care Plan Chronic Care Management No change(06/20 7:42 AM SMOKING PIPE MOUNTER) No Rita Landa RN Note: Problem: Chronic Pain Goals: 1. Minimize further functional decline 2. Maximize quality of life 3. Control pain Strategies: - Activity/exercise program recommendation - Conservative stepwise pain medicine strategy with multi-disciplinary approach - Recommend healthy lifestyle strategies and compensatory methods as needed Medical Devices Implanted Type Area Shift Supervisor Device Identifier Shelf Expiration Date Model / Serial / Lot [employer] Stent Graft Aortic Covered Tag [id number] Eptfe Nitinol [id number] - [id number] - [id number] Implanted:Qty : 1 on 05/02/2023 by Leo Manzano MD at [facility] Graft N/A: Aorta [employer] [id number] 12/07/2025 [id number] / [id number] / [employer] Stent Graft Thoracic Side Branch Tag [id number] Eptfe Nitinol [id number] - [id number] - [id number] Implanted:Qty : 1 on 05/02/2023 by Leo Manzano MD at [facility] Stent Left: Subclavian [employer] [id number] 06/27/2025 [id number] / [id number] / [employer] Graft Stent Ashford Tag L20cm Od37mm Thoracic Active Control [id number] - [id number] - [id number] Implanted:Qty : 1 on 06/05/2023 by Nikhil Samuel MD at [facility] Stent N/A: Descending Thoracic Aorta [employer] [id number] 04/12/2024 [id number] / [employer] Zenith 36mm 20-30mm 16mm 180mm 9 Dissection Introducer Sheath [id number] - [id number] Implanted:Qty : 1 on 06/05/2023 by Nikhil Samuel MD at [facility] Stent N/A: Descending Thoracic Aorta [employer] [id number] 12/20/2025 [id number] / / [id number] [employer] Device Clsr Perclose Prostyle Sut-Mediatd Closure-Repai r Sys 42549-18 - [id number] Implanted:Qty : 3 on 05/02/2023 by Leo Manzano MD at [facility] Vascular Closure Device Left: Common Femoral Artery [employer] [id number] 09/26/2024 [id number] / / [id number] Description:Same lot number [employer] Device Clsr Perclose Prostyle Sut-Mediatd Closure-Repai r Sys 16377-12 - [id number] Implanted:Qty : 1 on 06/05/2023 by Nikhil Samuel MD at [facility] Left: Groin [employer] [id number] 12/27/2024 [id number] / / [id number] [employer] Device Clsr Perclose Prostyle Sut-Mediatd Closure-Repai r Sys 48507-10 - [id number] Implanted:Qty : 1 on 06/05/2023 by Nikhil Samuel MD at [facility] Left: Groin [employer] [id number] 12/27/2024 [id number] / / [id number] [employer] Ron Contour 6fr 26cm Large Inner Lumen Low Profile Bladder Ag Taper Latex Free 180-223 - [id number] Implanted:Qty : 1 on 09/27/2023 by Marcus Glass MD at [facility] Right: Ureter [employer] Ron 05/16/2026 [id number] / / [id number] [employer] Ron Contour 6fr 26cm Large Inner Lumen Low Profile Bladder Ag Taper Latex Free 180-223 - [id number] Implanted:Qty : 1 on 10/04/2023 by Otoniel Landa MD at [facility] Right: Ureter [employer] Ron 05/16/2026 [id number] / / [id number] Explanted Type Area Shift Supervisor Device Identifier Shelf Expiration Date Model / Serial / Lot [employer] Inlay Vale 6fr 28cm Pusher Fluoro Marker Atraumatic Insertion Latex Free [id number] - [id number] Implanted:Qty: 1 on 07/04/2023 by Marcus Gamboa MD at [facility] Explanted:Qty: 1 on 07/14/2023 by Stacia Su MD Stent Left: Ureter [employer] [id number] 04/14/2027 [id number] / / [id number] Procedures Procedure Name Priority Date/Time Associated Diagnosis Comments PAIN MGMT IMAGING SI JOINT BILATERAL ARTHROGRPHY Schedule Routine, Read Routine (OP Routine) 06/20/2024 8:41 AM SMOKING PIPE MOUNTER Sacroiliitis (HCC) EGFR Timed 05/28/2024 3:36 AM SMOKING PIPE MOUNTER BASIC METABOLIC PANEL Timed 05/28/2024 3:36 AM SMOKING PIPE MOUNTER CBC WITHOUT DIFFERENTIAL Timed 05/28/2024 3:36 AM SMOKING PIPE MOUNTER LIDOCAINE LEVEL Timed 05/28/2024 3:36 AM SMOKING PIPE MOUNTER LIDOCAINE LEVEL Timed 05/27/2024 3:29 AM SMOKING PIPE MOUNTER TYPE AND SCREEN Timed 05/27/2024 3:29 AM SMOKING PIPE MOUNTER EGFR Routine 05/26/2024 4:38 AM SMOKING PIPE MOUNTER LIDOCAINE LEVEL Timed 05/26/2024 4:38 AM SMOKING PIPE MOUNTER BASIC METABOLIC PANEL Routine 05/26/2024 4:38 AM SMOKING PIPE MOUNTER CBC WITHOUT DIFFERENTIAL Routine 05/26/2024 4:38 AM SMOKING PIPE MOUNTER EGFR Routine 05/25/2024 4:20 PM SMOKING PIPE MOUNTER BASIC METABOLIC PANEL Routine 05/25/2024 4:20 PM SMOKING PIPE MOUNTER CBC WITHOUT DIFFERENTIAL Routine 05/25/2024 4:20 PM SMOKING PIPE MOUNTER LIDOCAINE LEVEL Routine 05/25/2024 4:20 PM SMOKING PIPE MOUNTER CRITICAL CARE Routine 05/25/2024 8:12 AM SMOKING PIPE MOUNTER Abdominal pain POCT GLUCOSE DEVICE Routine 05/25/2024 4 :16 AM SMOKING PIPE MOUNTER POCT GLUCOSE DEVICE Routine 05/24/2024 1 1:36 PM SMOKING PIPE MOUNTER POCT GLUCOSE DEVICE Routine 05/24/2024 8 :50 PM SMOKING PIPE MOUNTER CRITICAL CARE Routine 05/24/2024 8:47 PM SMOKING PIPE MOUNTER Abdominal pain EGFR Routine 05/24/2024 5:43 PM SMOKING PIPE MOUNTER DIFFERENTIAL AUTO Routine 05/24/2024 5:4 3 PM SMOKING PIPE MOUNTER LACTATE, WHOLE BLOOD STAT 05/24/2024 5:43 PM SMOKING PIPE MOUNTER AMYLASE Routine 05/24/2024 5:43 PM SMOKING PIPE MOUNTER PHOSPHORUS Routine 05/24/2024 5:43 PM SMOKING PIPE MOUNTER MAGNESIUM Routine 05/24/2024 5:43 PM SMOKING PIPE MOUNTER COMPREHENSIVE METABOLIC PANEL Routine 05/24/2024 5:43 PM SMOKING PIPE MOUNTER CBC WITH AUTO DIFFERENTIAL Routine 05/24/2024 5:43 PM SMOKING PIPE MOUNTER POCT GLUCOSE DEVICE Routine 05/24/2024 3 :52 PM SMOKING PIPE MOUNTER POCT GLUCOSE DEVICE Routine 05/24/2024 1 1:06 AM SMOKING PIPE MOUNTER POCT GLUCOSE DEVICE Routine 05/24/2024 7 :46 AM SMOKING PIPE MOUNTER CRITICAL CARE Routine 05/24/2024 6:15 AM SMOKING PIPE MOUNTER Abdominal pain POCT GLUCOSE DEVICE Routine 05/24/2024 3 :23 AM SMOKING PIPE MOUNTER POCT GLUCOSE DEVICE Routine 05/23/2024 1 1:04 PM SMOKING PIPE MOUNTER EGFR STAT 05/23/2024 8:33 PM SMOKING PIPE MOUNTER DIFFERENTIAL AUTO STAT 05/23/2024 8:3 3 PM SMOKING PIPE MOUNTER PROTIME-INR STAT 05/23/2024 8:33 PM SMOKING PIPE MOUNTER APTT STAT 05/23/2024 8:33 PM SMOKING PIPE MOUNTER TYPE AND SCREEN Timed 05/23/2024 8:33 PM SMOKING PIPE MOUNTER CBC WITH AUTO DIFFERENTIAL STAT 05/23/2024 8:33 PM SMOKING PIPE MOUNTER CREATINE KINASE (CK), TOTAL STAT 05/23/2024 8:33 PM SMOKING PIPE MOUNTER LACTATE STAT 05/23/2024 8:33 PM SMOKING PIPE MOUNTER CALCIUM, IONIZED STAT 05/23/2024 8:33 PM SMOKING PIPE MOUNTER PHOSPHORUS STAT 05/23/2024 8:33 PM SMOKING PIPE MOUNTER MAGNESIUM STAT 05/23/2024 8:33 PM SMOKING PIPE MOUNTER COMPREHENSIVE METABOLIC PANEL STAT 05/23/2024 8:[address] BODY OUTSIDE REFERENCE Routine 05/23/2024 8:[address] BODY OUTSIDE CONSULT Routine 05/23/2024 8:18 PM SMOKING PIPE MOUNTER POCT GLUCOSE DEVICE Routine 05/23/2024 7 :47 PM SMOKING PIPE MOUNTER POCT RAPID HIV ANTIBODY COMMUNITY SCREENING-PAPA ELIGIBLE Routine 05/21/2024 7:35 PM SMOKING PIPE MOUNTER OXYCODONE CONFIRMATION, URINE Routine 05/21/2024 5:34 PM SMOKING PIPE MOUNTER FENTANYL CONFIRMATION, MS URINE Routine 05/21/2024 5:34 PM SMOKING PIPE MOUNTER AMPHETAMINE, URINE, CONFIRMATION Routine 05/21/2024 5:34 PM SMOKING PIPE MOUNTER URINALYSIS, MICROSCOPIC ONLY STAT 05/21/2024 5:34 PM SMOKING PIPE MOUNTER DRUGS OF ABUSE SCREEN, URINE WITH REFLEX CONFIRMATION Routine 05/21/2024 5:34 PM SMOKING PIPE MOUNTER URINALYSIS AND REFLEX TO MICROSCOPIC STAT 05/21/2024 5:34 PM SMOKING PIPE MOUNTER SEPSIS LACTATE WITH REFLEX STAT 05/21/2024 4:33 PM SMOKING PIPE MOUNTER EGFR STAT 05/21/2024 3:41 PM SMOKING PIPE MOUNTER DIFFERENTIAL AUTO STAT 05/21/2024 3:4 1 PM SMOKING PIPE MOUNTER LIPASE STAT 05/21/2024 3:41 PM SMOKING PIPE MOUNTER COMPREHENSIVE METABOLIC PANEL STAT 05/21/2024 3:41 PM SMOKING PIPE MOUNTER CBC WITH AUTO DIFFERENTIAL STAT 05/21/2024 3:41 PM SMOKING PIPE MOUNTER ECG 12-LEAD STAT 05/21/2024 2:24 PM SMOKING PIPE MOUNTER ECG 12-LEAD STAT 05/19/2024 11:55 PM SMOKING PIPE MOUNTER XR CHEST PA LATERAL 2 VIEWS ED 05/19/2024 10:34 PM SMOKING PIPE MOUNTER CTA CHEST ABDOMEN PELVIS ED 05/19/2024 10:20 PM SMOKING PIPE MOUNTER EGFR STAT 05/19/2024 9:12 PM SMOKING PIPE MOUNTER DIFFERENTIAL AUTO Timed 05/19/2024 9:1 2 PM SMOKING PIPE MOUNTER TROPONIN I HIGH-SENSITIVITY SERIES (BASELINE, 2HR, 4HR, 6HR) STAT 05/19/2024 9:12 PM SMOKING PIPE MOUNTER TYPE AND SCREEN STAT 05/19/2024 9:12 PM SMOKING PIPE MOUNTER APTT STAT 05/19/2024 9:12 PM SMOKING PIPE MOUNTER PROTIME-INR STAT 05/19/2024 9:12 PM SMOKING PIPE MOUNTER COMPREHENSIVE METABOLIC PANEL STAT 05/19/2024 9:12 PM SMOKING PIPE MOUNTER CBC WITH AUTO DIFFERENTIAL Timed 05/19/2024 9:12 PM SMOKING PIPE MOUNTER HEPATITIS C ANTIBODY Routine 09/06/2023 11:15 AM CDT from Last 3 Months or Most Recently Relevant to Health Maintenance Results * Imaging SI Joint Injection Bilateral (39841) (06/20/2024 8:41 AM SMOKING PIPE MOUNTER) Narrative [facility] - 06/20/2024 8:41 AM SMOKING PIPE MOUNTER The images from this study are not interpreted by Radiology. ??Please refer to the physician's procedure / OR operative note. us Adrianne Adams MD PhD IMG PAIN MGMT PROCEDURE S Final Result [facility] * eGFR (05/28/2024 3:36 AM SMOKING PIPE MOUNTER) eGFR >90 >=60 mL/min/1. 73 m2 Comment: [...] last reviewed 2021. Blood 05/28/2024 3:36 AM SMOKING PIPE MOUNTER 05/28/2024 4:30 AM SMOKING PIPE MOUNTER us Leo Manzano MD LAB BLOOD ORDERABLES Final Result Performing Organization Address City/[facility]/ZIP Co de Phone Number JAIRON [facility] Department [place] [address] * (ABNORMAL) Lidocaine level (05/28/2024 3:36 AM SMOKING PIPE MOUNTER) Lidocaine (Xylocaine) <1.0(L) 1.5 - 5.0 mcg/mL Blood 05/28/2024 3:36 AM SMOKING PIPE MOUNTER 05/28/2024 4:30 AM SMOKING PIPE MOUNTER us Gonzalez Lamar DO LAB BLOOD ORDERABLES Fin al Result Performing Organization Address City/[facility] Co de Phone Number [facility] Department [place] [address] * (ABNORMAL) CBC without differential (05/28/2024 3:36 AM SMOKING PIPE MOUNTER) [facility] WBC 5.0 3.8 - 9.9 K/cumm Hgb 11.7(L) 13.0 - 17.5 g/dL [facility] Hct 35.3(L) 38.9 - 50.3 % [facility] Plt 240 150 - 400 K/cumm [facility] MPV 9.5 9.1 - 12.3 fL [facility] RBC 3.82(L) 4.30 - 5.80 M/cumm [facility] MCV 92.4 81.3 - 96.4 fL [facility] MCH 30.6 27.1 - 33.3 pg [facility] MCHC 33.1 32.3 - 35.7 g/dL [facility] RDW CV 13.3 11.1 - 14.9 % [facility] RDW SD 45.1 35.7 - 48.1 fL [facility] NRBC abs 0.00 0.00 - 0.01 K/cumm [facility] Blood 05/28/2024 3:36 AM SMOKING PIPE MOUNTER 05/28/2024 4:32 AM SMOKING PIPE MOUNTER Leo Manzano MD LAB BLOOD ORDERABLES Final Result Performing Organization Address City/State/[facility] Co de Phone Number [facility] Department [place] [address] * Basic metabolic panel (05/28/2024 3:36 AM SMOKING PIPE MOUNTER) [facility] Sodium 140 135 - 145 mmol/L Potassium, pl 4.0 3.3 - 4.9 mmol/L [facility] Chloride 103 97 - 110 mmol/L [facility] CO2 25 22 - 32 mmol/L [facility] Anion gap 12 2 - 15 mmol/L [facility] BUN 18 6 - 25 mg/dL [facility] Creatinine 1.10 0.80 - 1.30 mg/dL [facility] Glucose 85 70 - 199 mg/dL [facility] Comment: Interpretive Data Fasting glucose >/= [...] 2022. Calcium 9.1 8.5 - 10.3 mg/dL [facility] Blood 05/28/2024 3:36 AM SMOKING PIPE MOUNTER 05/28/2024 4:30 AM SMOKING PIPE MOUNTER Leo Manzano MD LAB BLOOD ORDERABLES Final Result Performing Organization Address City/[facility]/ZIP Co de Phone Number [facility] Department [place] [address] * Lidocaine level (05/27/2024 3:29 AM SMOKING PIPE MOUNTER) Lidocaine (Xylocaine) 1.5 1.5 - 5.0 mcg/mL Blood 05/27/2024 3:29 AM SMOKING PIPE MOUNTER 05/27/2024 4:21 AM SMOKING PIPE MOUNTER Gonzalez Lamar DO LAB BLOOD ORDERABLES Fin al Result Performing Organization Address City/[facility]/ZIP Co de Phone Number [facility] Department [place] [address] * Type and screen (05/27/2024 3:29 AM SMOKING PIPE MOUNTER) Ellen, indirect Negative ABO Rh A Positive [facility] Blood 05/27/2024 3:29 AM SMOKING PIPE MOUNTER 05/27/2024 4:33 AM SMOKING PIPE MOUNTER Narrative [facility] - 05/27/2024 5:33 AM SMOKING PIPE MOUNTER Has the patient had Daratumumab or Isatuximab in the past 6 months?->Unknown Moriah Amin NP LAB BLOOD BANK TEST ORDERABLE S Final Result Performing Organization Address [facility] Co de Phone Number JAIRON [facility] Department [place] [address] * eGFR (05/26/2024 4:38 AM SMOKING PIPE MOUNTER) eGFR 86 >=60 mL/min/1. 73 m2 Comment: [...] last reviewed 2021. Blood 05/26/2024 4:38 AM SMOKING PIPE MOUNTER 05/26/2024 5:46 AM SMOKING PIPE MOUNTER Moriah Amin NP LAB BLOOD ORDERABLES Final Re sult Performing Organization Address [facility] de Phone Number JAIRON Mcwilliams [facility] [place] [address] * Lidocaine level (05/26/2024 4:38 AM SMOKING PIPE MOUNTER) Pathologist [facility] Lidocaine (Xylocaine) 1.8 1.5 - 5.0 mcg/mL Blood 05/26/2024 4:38 AM SMOKING PIPE MOUNTER 05/26/2024 5:46 AM SMOKING PIPE MOUNTER Gonzalez Lamar DO LAB BLOOD ORDERABLES Fin al Result [facility] [place] [address] * (ABNORMAL) CBC without differential (05/26/2024 4:38 AM SMOKING PIPE MOUNTER) [facility] WBC 5.5 3.8 - 9.9 K/cumm Hgb 11.5(L) 13.0 - 17.5 g/dL [facility] Hct 34.0(L) 38.9 - 50.3 % [facility] Plt 222 150 - 400 K/cumm [facility] MPV 9.7 9.1 - 12.3 fL [facility] RBC 3.67(L) 4.30 - 5.80 M/cumm [facility] MCV 92.6 81.3 - 96.4 fL [facility] MCH 31.3 27.1 - 33.3 pg [facility] MCHC 33.8 32.3 - 35.7 g/dL [facility] RDW CV 13.3 11.1 - 14.9 % [facility] RDW SD 45.5 35.7 - 48.1 fL [facility] NRBC abs 0.00 0.00 - 0.01 K/cumm [facility] Blood 05/26/2024 4:38 AM SMOKING PIPE MOUNTER 05/26/2024 5:46 AM SMOKING PIPE MOUNTER us Moriah Amin SOLDERER LAB BLOOD ORDERABLES Final Re sult [facility] Department [place] [address] * Basic metabolic panel (05/26/2024 4:38 AM SMOKING PIPE MOUNTER) [facility] Sodium 141 135 - 145 mmol/L Potassium, pl 3.9 3.3 - 4.9 mmol/L [facility] Chloride 107 97 - 110 mmol/L [facility] CO2 26 22 - 32 mmol/L [facility] Anion gap 8 2 - 15 mmol/L [facility] BUN 15 6 - 25 mg/dL [facility] Creatinine 1.16 0.80 - 1.30 mg/dL [facility] Glucose 78 70 - 199 mg/dL [facility] Comment: Interpretive Data Fasting glucose >/= [...] 2022. Calcium 8.6 8.5 - 10.3 mg/dL [facility] Blood 05/26/2024 4:38 AM SMOKING PIPE MOUNTER 05/26/2024 5:46 AM SMOKING PIPE MOUNTER Moriah Amin NP LAB BLOOD ORDERABLES Final Re sult [facility] One [facility] Department [place] [address] * eGFR (05/25/2024 4:20 PM SMOKING PIPE MOUNTER) [facility] eGFR >90 >=60 mL/min/1. 73 m2 [...] last reviewed 2021. Blood 05/25/2024 4:20 PM SMOKING PIPE MOUNTER 05/25/2024 4:33 PM SMOKING PIPE MOUNTER Moriah Amin SOLDERER LAB BLOOD ORDERABLES Final Re sult Performing Organization Address [facility] de Phone Number [facility] [place] [address] * Lidocaine level (05/25/2024 4:20 PM SMOKING PIPE MOUNTER) Lidocaine (Xylocaine) 2.1 1.5 - 5.0 mcg/mL Blood 05/25/2024 4:20 PM SMOKING PIPE MOUNTER 05/25/2024 4:33 PM SMOKING PIPE MOUNTER Narrative [facility] - 05/25/2024 5:02 PM SMOKING PIPE MOUNTER Draw 24 hours after infusion started. Moriah Amin SOLDERER LAB BLOOD ORDERABLES Final Re sult Performing Organization Address City/[facility] Co de Phone Number [facility] [place] [address] * (ABNORMAL) CBC without differential (05/25/2024 4:20 PM SMOKING PIPE MOUNTER) [facility] WBC 6.1 3.8 - 9.9 K/cumm Hgb 12.1(L) 13.0 - 17.5 g/dL [facility] Hct 36.3(L) 38.9 - 50.3 % [facility] Plt 246 150 - 400 K/cumm [facility] MPV 9.6 9.1 - 12.3 fL [facility] RBC 4.03(L) 4.30 - 5.80 M/cumm [facility] MCV 90.1 81.3 - 96.4 fL [facility] MCH 30.0 27.1 - 33.3 pg [facility] MCHC 33.3 32.3 - 35.7 g/dL [facility] RDW CV 13.3 11.1 - 14.9 % [facility] RDW SD 44.0 35.7 - 48.1 fL [facility] NRBC abs 0.00 0.00 - 0.01 K/cumm [facility] Blood 05/25/2024 4:20 PM SMOKING PIPE MOUNTER 05/25/2024 4:33 PM SMOKING PIPE MOUNTER Moriah Amin SOLDERER LAB BLOOD ORDERABLES Final Re sult [facility] One [facility] Department [place] [address] * Basic metabolic panel (05/25/2024 4:20 PM SMOKING PIPE MOUNTER) [facility] Sodium 140 135 - 145 mmol/L Potassium, pl 3.9 3.3 - 4.9 mmol/L [facility] Chloride 106 97 - 110 mmol/L [facility] CO2 25 22 - 32 mmol/L [facility] Anion gap 9 2 - 15 mmol/L [facility] BUN 10 6 - 25 mg/dL [facility] Creatinine 0.92 0.80 - 1.30 mg/dL [facility] Glucose 98 70 - 199 mg/dL [facility] Comment: Interpretive Data Fasting glucose >/= [...] 2022. Calcium 8.9 8.5 - 10.3 mg/dL [facility] Blood 05/25/2024 4:20 PM SMOKING PIPE MOUNTER 05/25/2024 4:33 PM SMOKING PIPE MOUNTER us Moriah Amin NP LAB BLOOD ORDERABLES Final Re sult [facility] One [facility] Department [place] [address] * Critical Care (05/25/2024 8:12 AM SMOKING PIPE MOUNTER) Narrative Rafiq Rodrigeuz MD - 05/25/2024 8:12 AM SMOKING PIPE MOUNTER Moriah Amin NP ? 05/25/2024 ??3:35 PM [...] plan with the patient's team and other medical/mergers and acquisitions consultant staff. This time was in addition to and separate from care provided by other practitioners on this day of service. ?? us Moriah Amin SOLDERER IN CLINIC/BEDSIDE ORDERABLES Final Result * POCT glucose (05/25/2024 4:16 AM SMOKING PIPE MOUNTER) Glucose, POC 117 70 - 199 mg/dL Blood 05/25/2024 4:16 AM SMOKING PIPE MOUNTER 05/25/2024 4:16 AM SMOKING PIPE MOUNTER Gonzalez Lamar DO LAB POCT ORDERABLES - DE VICE Final Result Performing Organization Address [facility] Phone Number [facility] [place] [address] * POCT glucose (05/24/2024 11:36 PM SMOKING PIPE MOUNTER) Glucose, POC 116 70 - 199 mg/dL Blood 05/24/2024 11:3 6 PM SMOKING PIPE MOUNTER 05/24/2024 11:36 PM SMOKING PIPE MOUNTER Gonzalez Lamar DO LAB POCT ORDERABLES - DE VICE Final Result Performing Organization Address [facility] Phone Number [facility] [place] [address] * POCT glucose (05/24/2024 8:50 PM SMOKING PIPE MOUNTER) Glucose, POC 123 70 - 199 mg/dL Blood 05/24/2024 8:50 PM SMOKING PIPE MOUNTER 05/24/2024 8:50 PM SMOKING PIPE MOUNTER Gonzalez Lamar DO LAB POCT ORDERABLES - DE VICE Final Result Performing Organization Address [facility] [place] [address] * Critical Care (05/24/2024 8:47 PM SMOKING PIPE MOUNTER) Narrative Ag Lemos MD - 05/24/2024 8:47 PM SMOKING PIPE MOUNTER Ag Lemos MD ? 05/25/2024 ??6:53 AM [...] plan with the ICU team and other medical/mergers and acquisitions consultant staff, making frequent assessments and decisions [...] Final Result * eGFR (05/24/2024 5:43 PM SMOKING PIPE MOUNTER) [facility] eGFR >90 >=60 mL/min/1. 73 m2 [...] last reviewed 2021. Blood 05/24/2024 5:43 PM SMOKING PIPE MOUNTER 05/24/2024 6:00 PM SMOKING PIPE MOUNTER us Gonzalez Lamar DO LAB BLOOD ORDERABLES Fin al Result [facility] One [facility] Department [place] [address] * Differential, auto (05/24/2024 5:43 PM SMOKING PIPE MOUNTER) Neutrophil abs 4.9 1.5 - 6.5 K/cumm Imm gran abs 0.0 0.0 - 0.1 K/cumm [facility] Lymphocyte abs 1.4 0.8 - 3.3 K/cumm [facility] Monocyte abs 0.8 0.2 - 0.8 K/cumm [facility] Eosinophil abs 0.1 0.0 - 0.5 K/cumm [facility] Basophil abs 0.1 0.0 - 0.1 K/cumm [facility] Neutrophil pct 67.4 % [facility] Comment: Interpretive Data Percent cell count reference ranges are not reported, since discordance with absolute values may lead to misinterpretation of CBC data. Current Interpretive Data was last revised on 2017. Imm gran pct 0.4 % [facility] Comment: Interpretive Data Percent cell count reference ranges are not reported, since discordance with absolute values may lead to misinterpretation of CBC data. Current Interpretive Data was last revised on 2017. Lymphocyte pct 19.4 % [facility] Comment: Interpretive Data Percent cell count reference ranges are not reported, since discordance with absolute values may lead to misinterpretation of CBC data. Current Interpretive Data was last revised on 2017. Monocyte pct 11.3 % [facility] Comment: Interpretive Data Percent cell count reference ranges are not reported, since discordance with absolute values may lead to misinterpretation of CBC data. Current Interpretive Data was last revised on 2017. Eosinophil pct 0.8 % [facility] Comment: Interpretive Data Percent cell count reference ranges are not reported, since discordance with absolute values may lead to misinterpretation of CBC data. Current Interpretive Data was last revised on 2017. Basophil pct 0.7 % [facility] Comment: Interpretive Data Percent cell count reference ranges are not reported, since discordance with absolute values may lead to misinterpretation of CBC data. Current Interpretive Data was last revised on 2017. Blood 05/24/2024 5:43 PM SMOKING PIPE MOUNTER 05/24/2024 6:00 PM SMOKING PIPE MOUNTER us Gonzalez Lamar DO LAB BLOOD ORDERABLES Fin al Result [facility] One [facility] Department [place] [address] * (ABNORMAL) CBC with auto differential (05/24/2024 5:43 PM SMOKING PIPE MOUNTER) WBC 7.2 3.8 - 9.9 K/cumm Hgb 11.5(L) 13.0 - 17.5 g/dL [facility] Hct 34.7(L) 38.9 - 50.3 % [facility] Plt 233 150 - 400 K/cumm [facility] MPV 9.2 9.1 - 12.3 fL [facility] RBC 3.77(L) 4.30 - 5.80 M/cumm [facility] MCV 92.0 81.3 - 96.4 fL [facility] MCH 30.5 27.1 - 33.3 pg [facility] MCHC 33.1 32.3 - 35.7 g/dL [facility] RDW CV 13.0 11.1 - 14.9 % [facility] RDW SD 43.8 35.7 - 48.1 fL [facility] NRBC abs 0.00 0.00 - 0.01 K/cumm [facility] Blood 05/24/2024 5:43 PM SMOKING PIPE MOUNTER 05/24/2024 6:00 PM SMOKING PIPE MOUNTER Gonzalez Lamar DO LAB BLOOD ORDERABLES Fin al Result Performing Organization Address City/State/[facility] Co de Phone Number [facility] Department [place] [address] * Lactate, whole blood (05/24/2024 5:43 PM SMOKING PIPE MOUNTER) Lactate, bld 0.7 0.7 - 2.0 mmol/L Blood 05/24/2024 5:43 PM SMOKING PIPE MOUNTER 05/24/2024 5:50 PM SMOKING PIPE MOUNTER Moriah Amin NP LAB BLOOD ORDERABLES Final Re sult Performing Organization Address [facility] Co de Phone Number [facility] Department [place] [address] * Phosphorus (05/24/2024 5:43 PM SMOKING PIPE MOUNTER) Phosphorus, pl 2.7 2.3 - 4.5 mg/dL Blood 05/24/2024 5:43 PM SMOKING PIPE MOUNTER 05/24/2024 6:00 PM SMOKING PIPE MOUNTER Gonzalez Lamar DO LAB BLOOD ORDERABLES Fin al Result Performing Organization Address [facility] Co de Phone Number [facility] Department [place] [address] * Magnesium (05/24/2024 5:43 PM SMOKING PIPE MOUNTER) Magnesium 2.0 1.4 - 2.5 mg/dL Blood 05/24/2024 5:43 PM SMOKING PIPE MOUNTER 05/24/2024 6:00 PM SMOKING PIPE MOUNTER Gonzalez Lamar DO LAB BLOOD ORDERABLES Fin al Result [facility] Department [place] [address] * Amylase (05/24/2024 5:43 PM SMOKING PIPE MOUNTER) Pathologist [facility] Amylase 35 30 - 99 Units/L Blood 05/24/2024 5:43 PM SMOKING PIPE MOUNTER 05/24/2024 6:00 PM SMOKING PIPE MOUNTER Moriah Amin SOLDERER LAB BLOOD ORDERABLES Final Re sult Performing Organization Address [facility] de Phone Number [facility] Department [place] [address] * Comprehensive metabolic panel (05/24/2024 5:43 PM SMOKING PIPE MOUNTER) [facility] Sodium 140 135 - 145 mmol/L Potassium, pl 3.9 3.3 - 4.9 mmol/L [facility] Chloride 105 97 - 110 mmol/L [facility] CO2 25 22 - 32 mmol/L [facility] Anion gap 10 2 - 15 mmol/L [facility] BUN 6 6 - 25 mg/dL [facility] Creatinine 0.88 0.80 - 1.30 mg/dL [facility] Glucose 86 70 - 199 mg/dL [facility] Comment: Interpretive Data Fasting glucose >/= [...] 2022. Calcium 8.9 8.5 - 10.3 mg/dL [facility] Bilirubin, total 0.8 0.1 - 1.2 mg/dL [facility] Protein, pl 6.7 6.5 - 8.5 g/dL [facility] Albumin 4.1 3.5 - 5.0 g/dL [facility] Alk phos 81 40 - 130 Units/L [facility] ALT 15 7 - 55 Units/L [facility] AST 17 10 - 50 Units/L [facility] Blood 05/24/2024 5:43 PM SMOKING PIPE MOUNTER 05/24/2024 6:00 PM SMOKING PIPE MOUNTER Gonzalez Lamar DO LAB BLOOD ORDERABLES Fin al Result Performing Organization Address City/[facility]/ZIP Co de Phone Number [facility] [place] [address] * POCT glucose (05/24/2024 3:52 PM SMOKING PIPE MOUNTER) Glucose, POC 84 70 - 199 mg/dL Blood 05/24/2024 3:52 PM SMOKING PIPE MOUNTER 05/24/2024 3:52 PM SMOKING PIPE MOUNTER Gonzalez Lamar DO LAB POCT ORDERABLES - DE VICE Final Result Performing Organization Address [facility] Co de Phone Number [facility] [place] [address] * POCT glucose (05/24/2024 11:06 AM SMOKING PIPE MOUNTER) Glucose, POC 138 70 - 199 mg/dL Blood 05/24/2024 11:0 6 AM SMOKING PIPE MOUNTER 05/24/2024 11:06 AM SMOKING PIPE MOUNTER Gonzalez Lamar DO LAB POCT ORDERABLES - DE VICE Final Result Performing Organization Address City/[facility]/ZIP Co de Phone Number [facility] [place] [address] * POCT glucose (05/24/2024 7:46 AM SMOKING PIPE MOUNTER) Glucose, POC 86 70 - 199 mg/dL Blood 05/24/2024 7:46 AM SMOKING PIPE MOUNTER 05/24/2024 7:46 AM SMOKING PIPE MOUNTER us Gonzalez Lamar DO LAB POCT ORDERABLES - DE VICE Final Result [facility] Department [place] [address] * Critical Care (05/24/2024 6:15 AM SMOKING PIPE MOUNTER) Narrative Rafiq Rodriguez MD - 05/24/2024 6:15 AM SMOKING PIPE MOUNTER Moriah Amin NP ? 05/24/2024 ??5:42 PM Critical Care Performed by: Moriah Amin NP Authorized by: Moriah Aimn NP ?? CRITICAL CARE: ??Team: ??SICU BLUE [...] plan with the ICU team and other medical/mergers and acquisitions consultant staff, making frequent assessments and decisions [...] of the following conditions: ?? Moriah Amin SOLDERER IN CLINIC/BEDSIDE ORDERABLES Final Result * POCT glucose (05/24/2024 3:23 AM SMOKING PIPE MOUNTER) Glucose, POC 85 70 - 199 mg/dL Blood 05/24/2024 3:23 AM SMOKING PIPE MOUNTER 05/24/2024 3:23 AM SMOKING PIPE MOUNTER us Gonzalez Lamar DO LAB POCT ORDERABLES - DE VICE Final Result Performing Organization Address [facility] Co tx Phone Number [facility] [place] [address] * POCT glucose (05/23/2024 11:04 PM SMOKING PIPE MOUNTER) Glucose, POC 84 70 - 199 mg/dL Blood 05/23/2024 11:0 4 PM SMOKING PIPE MOUNTER 05/23/2024 11:04 PM SMOKING PIPE MOUNTER us Gonzalez Lamar DO LAB POCT ORDERABLES - DE VICE Final Result Performing Organization Address [facility] [place] [address] * Lactate (05/23/2024 8:33 PM SMOKING PIPE MOUNTER) Lactate 0.7 0.7 - 2.0 mmol/L Blood 05/23/2024 8:33 PM SMOKING PIPE MOUNTER 05/23/2024 9:39 PM SMOKING PIPE MOUNTER us Gonzalez Lamar DO LAB BLOOD ORDERABLES Fin al Result Performing Organization Address [facility] Co tx Phone Number JAIRON [facility] [place] [place] [address] * eGFR (05/23/2024 8:33 PM SMOKING PIPE MOUNTER) eGFR >90 >=60 mL/min/1. 73 m2 Comment: [...] last reviewed 2021. Blood 05/23/2024 8:33 PM SMOKING PIPE MOUNTER 05/23/2024 9:17 PM SMOKING PIPE MOUNTER us Gonzalez Lamar DO LAB BLOOD ORDERABLES Fin al Result [facility] One [facility] Department [place] [address] * Differential, auto (05/23/2024 8:33 PM SMOKING PIPE MOUNTER) Pathologist [facility] Neutrophil abs 3.9 1.5 - 6.5 K/cumm Imm gran abs 0.0 0.0 - 0.1 K/cumm [facility] Lymphocyte abs 1.9 0.8 - 3.3 K/cumm [facility] Monocyte abs 0.8 0.2 - 0.8 K/cumm [facility] Eosinophil abs 0.0 0.0 - 0.5 K/cumm [facility] Basophil abs 0.0 0.0 - 0.1 K/cumm [facility] Neutrophil pct 58.1 % [facility] Comment: Interpretive Data Percent cell count reference ranges are not reported, since discordance with absolute values may lead to misinterpretation of CBC data. Current Interpretive Data was last revised on 2017. Imm gran pct 0.4 % [facility] Comment: Interpretive Data Percent cell count reference ranges are not reported, since discordance with absolute values may lead to misinterpretation of CBC data. Current Interpretive Data was last revised on 2017. Lymphocyte pct 28.1 % [facility] Comment: Interpretive Data Percent cell count reference ranges are not reported, since discordance with absolute values may lead to misinterpretation of CBC data. Current Interpretive Data was last revised on 2017. Monocyte pct 12.4 % [facility] Comment: Interpretive Data Percent cell count reference ranges are not reported, since discordance with absolute values may lead to misinterpretation of CBC data. Current Interpretive Data was last revised on 2017. Eosinophil pct 0.4 % [facility] Comment: Interpretive Data Percent cell count reference ranges are not reported, since discordance with absolute values may lead to misinterpretation of CBC data. Current Interpretive Data was last revised on 2017. Basophil pct 0.6 % [facility] Comment: Interpretive Data Percent cell count reference ranges are not reported, since discordance with absolute values may lead to misinterpretation of CBC data. Current Interpretive Data was last revised on 2017. Blood 05/23/2024 8:33 PM SMOKING PIPE MOUNTER 05/23/2024 9:29 PM SMOKING PIPE MOUNTER Gonzalez Lamar DO LAB BLOOD ORDERABLES Fin al Result Performing Organization Address [facility] Co de Phone Number [facility] Department [place] [address] * (ABNORMAL) Calcium, ionized (05/23/2024 8:33 PM SMOKING PIPE MOUNTER) Calcium, Ionized 4.48(L) 4.50 - 5.10 mg/dL Blood 05/23/2024 8:33 PM SMOKING PIPE MOUNTER 05/23/2024 9:17 PM SMOKING PIPE MOUNTER Gonzalez Lamar DO LAB BLOOD ORDERABLES Fin al Result Performing Organization Address [facility] Co de Phone Number [facility] Department [place] [address] * (ABNORMAL) CBC with auto differential (05/23/2024 8:33 PM SMOKING PIPE MOUNTER) [facility] WBC 6.8 3.8 - 9.9 K/cumm Hgb 11.4(L) 13.0 - 17.5 g/dL [facility] Hct 33.7(L) 38.9 - 50.3 % [facility] Plt 237 150 - 400 K/cumm [facility] MPV 9.5 9.1 - 12.3 fL [facility] RBC 3.80(L) 4.30 - 5.80 M/cumm [facility] MCV 88.7 81.3 - 96.4 fL [facility] MCH 30.0 27.1 - 33.3 pg [facility] MCHC 33.8 32.3 - 35.7 g/dL [facility] RDW CV 13.0 11.1 - 14.9 % [facility] RDW SD 42.2 35.7 - 48.1 fL [facility] NRBC abs 0.00 0.00 - 0.01 K/cumm [facility] Blood 05/23/2024 8:33 PM SMOKING PIPE MOUNTER 05/23/2024 9:29 PM SMOKING PIPE MOUNTER Gonzalez Lamar DO LAB BLOOD ORDERABLES Fin al Result [facility] One [facility] [place] [address] * aPTT (05/23/2024 8:33 PM SMOKING PIPE MOUNTER) [facility] aPTT 31 28 - 38 sec Comment: Interpretive Data Heparin therapeutic range: 66.0 - 100.0 seconds. Range based on correlation with therapeutic heparin activity range of 0.3 - 0.7 Units/mL. Current interpretive data was last revised on 2023. Blood 05/23/2024 8:33 PM SMOKING PIPE MOUNTER 05/23/2024 9:20 PM SMOKING PIPE MOUNTER Gonzalez Lamar DO LAB BLOOD ORDERABLES Fin al Result Performing Organization Address City/[facility]/ZIP Co de Phone Number [facility] [place] [place] [address] * (ABNORMAL) Protime-INR (05/23/2024 8:33 PM SMOKING PIPE MOUNTER) PT 14.6(H) 9.7 - 13.0 sec INR 1.34(H) 0.90 - 1.20 [facility] Comment: Interpretive data Oral anticoagulant therapeutic ranges: Venous thromboembolism prophylaxis or treatment: 2.0-3.0 CARDIOLOGY Standard range: 2.0-3.0 High-intensity range: 2.5-3.5 Refer to indication-specific guidelines for appropriate target ranges for prosthetic heart valve replacement. Current interpretive data was last revised on 2019. Blood 05/23/2024 8:33 PM SMOKING PIPE MOUNTER 05/23/2024 9:20 PM SMOKING PIPE MOUNTER Gonzalez Lamar DO LAB BLOOD ORDERABLES Fin al Result Performing Organization Address City/[facility]/ZIP Co de Phone Number [facility] [place] [place] [address] * Type and screen (05/23/2024 8:33 PM SMOKING PIPE MOUNTER) Ellen, indirect Negative ABO Rh A Positive [facility] Blood 05/23/2024 8:33 PM SMOKING PIPE MOUNTER 05/23/2024 9:31 PM SMOKING PIPE MOUNTER Narrative [facility] - 05/23/2024 10:36 PM SMOKING PIPE MOUNTER Has the patient had Daratumumab or Isatuximab in the past 6 months?->Unknown Moriah Amin SOLDERER LAB BLOOD BANK TEST ORDERABLE S Final Result Performing Organization Address City/[facility]/ZIP Co de Phone Number [facility] [place] [place] [address] * Phosphorus (05/23/2024 8:33 PM SMOKING PIPE MOUNTER) [facility] Phosphorus, pl 2.5 2.3 - 4.5 mg/dL Blood 05/23/2024 8:33 PM SMOKING PIPE MOUNTER 05/23/2024 9:17 PM SMOKING PIPE MOUNTER Gonzalez Lamar DO LAB BLOOD ORDERABLES Fin al Result Performing Organization Address [facility] de Phone Number [facility] Department [place] [address] * Magnesium (05/23/2024 8:33 PM SMOKING PIPE MOUNTER) [facility] Magnesium 2.0 1.4 - 2.5 mg/dL Blood 05/23/2024 8:33 PM SMOKING PIPE MOUNTER 05/23/2024 9:17 PM SMOKING PIPE MOUNTER Gonzalez Lamar DO LAB BLOOD ORDERABLES Fin al Result Performing Organization Address [facility] de Phone Number [facility] [place] [address] * Creatine kinase (CK), total (05/23/2024 8:33 PM SMOKING PIPE MOUNTER) [facility] CK 159 40 - 300 Units/L Blood 05/23/2024 8:33 PM SMOKING PIPE MOUNTER 05/23/2024 9:17 PM SMOKING PIPE MOUNTER Gonzalez Lamar DO LAB BLOOD ORDERABLES Fin al Result Performing Organization Address [facility] de Phone Number [facility] [place] [place] [address] * (ABNORMAL) Comprehensive metabolic panel (05/23/2024 8:33 PM SMOKING PIPE MOUNTER) [facility] Sodium 141 135 - 145 mmol/L Potassium, pl 3.2(L) 3.3 - 4.9 mmol/L [facility] Chloride 105 97 - 110 mmol/L [facility] CO2 25 22 - 32 mmol/L [facility] Anion gap 11 2 - 15 mmol/L [facility] BUN 11 6 - 25 mg/dL [facility] Creatinine 1.03 0.80 - 1.30 mg/dL [facility] Glucose 84 70 - 199 mg/dL [facility] Comment: Interpretive Data Fasting glucose >/= [...] 2022. Calcium 9.0 8.5 - 10.3 mg/dL [facility] Bilirubin, total 1.2 0.1 - 1.2 mg/dL [facility] Protein, pl 7.0 6.5 - 8.5 g/dL [facility] Albumin 4.2 3.5 - 5.0 g/dL [facility] Alk phos 83 40 - 130 Units/L [facility] ALT 15 7 - 55 Units/L [facility] AST 16 10 - 50 Units/L [facility] Blood 05/23/2024 8:33 PM SMOKING PIPE MOUNTER 05/23/2024 9:17 PM SMOKING PIPE MOUNTER Gonzalez Lamar DO LAB BLOOD ORDERABLES Fin al Result [facility] [place] [address] * CT Body Outside Reference (05/23/2024 8:22 PM SMOKING PIPE MOUNTER) Impressions [facility]_PACS_[facility] - 05/23/2024 8:22 PM SMOKING PIPE MOUNTER These images are for Reference purposes only and have not been reviewed by [facility]. ??There will be no report generated by a [facility] Radiologist. Narrative [facility] - 05/23/2024 8:22 PM SMOKING PIPE MOUNTER EXAMINATION: ??Images For Reference Purposes Only Gadiel Ireland MD IMG CT PROCEDURES Final Result [facility] * CT Body Outside Consult (05/23/2024 8:18 PM SMOKING PIPE MOUNTER) Anatomical Region Laterality Modality Body N/A Computed Tomogra phy 05/24/2024 8:05 AM SMOKING PIPE MOUNTER Impressions 05/24/2024 8:05 AM SMOKING PIPE MOUNTER 1. ??Unchanged thoracoabdominal aortic dissection status post [...] images may or may not represent the [place] source data set and thus may contain changes that may lower the accuracy of this second-opinion interpretation. Electronically signed by: Shahrzad Zimmerman M.D. Narrative 05/24/2024 8:05 AM SMOKING PIPE MOUNTER EXAMINATION: RADIOLOGY CONSULTATION ON OUTSIDE IMAGING STUDY STUDY INITIALLY PERFORMED: 05/23/2024 at [place]. TYPE OF STUDY: Multiple CT images of [...] IMAGING STUDY STUDY INITIALLY PERFORMED: 05/23/2024 at [place]. TYPE OF STUDY: Multiple CT images of [...] images may or may not represent the [place] source data set and thus may contain changes that may lower the accuracy of this second-opinion interpretation. Electronically signed by: Shahrzad Zimmerman M.D. Gadiel Ireland MD IMG CT PROCEDURES Final Result * POCT glucose (05/23/2024 7:47 PM SMOKING PIPE MOUNTER) Glucose, POC 80 70 - 199 mg/dL Blood 05/23/2024 7:47 PM SMOKING PIPE MOUNTER 05/23/2024 7:47 PM SMOKING PIPE MOUNTER Gonzalez Lamar DO LAB POCT ORDERABLES - DE VICE Final Result [facility] Department [place] [address] * POCT Rapid HIV Antibody Community Screening-[place] Eligible (05/21/2024 7:35 PM SMOKING PIPE MOUNTER) Rapid HIV, POC Negative Negative Lot Number [id number] QC Control Line Acceptable Blood 05/21/2024 7:35 PM SMOKING PIPE MOUNTER Marcus Amaya MD POINT OF CARE TEST ORD ERABLES Final Result * (ABNORMAL) Oxycodone Confirmation, Urine (05/21/2024 5:34 PM SMOKING PIPE MOUNTER) Oxycodone Conf, Ur Confirmed Positive(A) CutOff 50 [...] needed. Performance characteristics were determined by the [facility] in a manner consistent with CLIA requirement and has not been cleared or approved by the U.S. Food and Drug Administration. Current interpretive data was last revised 2020. Urine 05/21/2024 5:34 PM SMOKING PIPE MOUNTER 05/21/2024 5:46 PM SMOKING PIPE MOUNTER Marcus Amaya MD LAB URINE ORDERABLES F inal Result [facility] Department [place] [address] * (ABNORMAL) Fentanyl Confirmation, Urine (05/21/2024 5:34 PM SMOKING PIPE MOUNTER) Fentanyl Conf, Ur Confirmed Positive(A) Cutoff 0.3ng/mL [...] needed. Performance characteristics were determined by the [facility] in a manner consistent with CLIA requirement and has not been cleared or approved by the U.S. Food and Drug Administration. Current interpretive data was last revised 2020. Urine 05/21/2024 5:34 PM SMOKING PIPE MOUNTER 05/21/2024 5:46 PM SMOKING PIPE MOUNTER us Marcus Amaya MD LAB URINE ORDERABLES F inal Result [facility] Department [place] [address] * (ABNORMAL) Drugs of Abuse Screen, Urine with Reflex Confirmation (05/21/2024 5:34 PM SMOKING PIPE MOUNTER) Amphetamine, ur Screen Positive, presumptive (A) CutOff [...] Screen Positive, presumptive (A) CutOff 100ng/mL [facility] Comment: Interpretive Data - Benzodiazepines: ??Samples containing greater than 100 ng/mL nordiazepam or other cross-reacting compounds are reported as positive. False positive and false negative results are possible. Confirmatory testing required for definitive results. Current Interpretive Data was last reviewed 2022. Cannabinoids, ur Screen Positive, presumptive (A) CutOff 50 ng/mL [facility] Comment: Interpretive Data - Cannabinoids: ??Samples containing greater than 50 ng/mL delta-9 THC -COOH or other cross-reacting compounds are reported as positive. ??False positive and false negative results are possible. ??Confirmatory testing required for definitive results. Current Interpretive Data was last reviewed 2022. Cocaine, ur Not Detected CutOff 150ng/mL [facility] Comment: Interpretive Data - Cocaine: [...] Methadone, ur Not Detected CutOff 300ng/mL [facility] Comment: Interpretive Data - Methadone: ??Samples containing greater than 300 ng/mL d,l-methadone or other cross-reacting compounds are reported as positive. ??False positive and false negative results are possible. Confirmatory testing required for definitive results. Current Interpretive Data was last reviewed 2022. Opiates, ur Not Detected CutOff 300ng/mL [facility] Comment: Interpretive Data - Opiates: [...] ur Not Detected CutOff 25 ng/mL [facility] Comment: Interpretive Data - Phencyclidine: ??Samples containing greater than 25 ng/mL phencyclidine or other cross-reacting compounds are reported as positive. ??False positive and false negative results are possible. Confirmatory testing required for definitive results. Current Interpretive Data was last reviewed 2022. Urine Creatinine 357 mg/dL [facility] Comment: Interpretive Data Urine Creatinine: < 10 mg/dL is extremely dilute = or > 10 but < 20 mg/dL is dilute = or > 20 mg/dL is normal Current Interpretive Data was last revised on 2017. Urine 05/21/2024 5:34 PM SMOKING PIPE MOUNTER 05/21/2024 5:46 PM SMOKING PIPE MOUNTER Narrative [facility] - 05/21/2024 6:16 PM SMOKING PIPE MOUNTER Drug of Abuse screening is performed by immunoassay for medical purposes only. ??This is not to be used for Pain Management purposes. ??If Detected, confirmation testing will be performed for Amphetamines, Cocaine, Fentanyl, Methadone, Opiates, Oxycodone or Phencyclidine. Marcus Amaya MD LAB URINE ORDERABLES F inal Result [facility] Department [place] [address] * (ABNORMAL) Urinalysis reflex to microscopic (05/21/2024 5:34 PM SMOKING PIPE MOUNTER) Color, ur Yellow Yellow Clarity, ur Clear Clear [facility] Specific gravity, ur 1.032(H) 1.003 - 1.030 [facility] pH, urine 6.0 [facility] Comment: Interpretive Data ? Urine pH is affected by diet, medications, systemic acid-base disturbances, and renal tubular function. ??pH may affect urinary stone formation. ??For example, urine pH below 6.0 may help reduce the tendency for calcium phosphate stones and pH greater than 6.0 may reduce the tendency for uric acid stone formation. Source: [place] Current Interpretive Data was last revised on 2017 Protein, ur ql 2+(A) Negative [facility] Glucose, ur ql Negative Negative [facility] Ketones, ur 1+(A) Negative [facility] Bilirubin, ur Negative Negative [facility] Blood, ur Negative Negative [facility] Urobilinogen, ur <2.0 <2.0 mg/dL [facility] Nitrite, ur Negative Negative [facility] Leukocyte esterase, ur Negative Negative [facility] UA reflex comment Reflex to microscopic UA will be performed. [facility] Urine 05/21/2024 5:34 PM SMOKING PIPE MOUNTER 05/21/2024 5:39 PM SMOKING PIPE MOUNTER Marcus Amaya MD LAB URINE ORDERABLES F inal Result [facility] Department [place] [address] * Amphetamine Confirmation, Urine (05/21/2024 5:34 PM SMOKING PIPE MOUNTER) Amphetamine Conf, Ur Does Not Confirm CutOff [...] needed. Performance characteristics were determined by the [facility] in a manner consistent with CLIA requirement and has not been cleared or approved by the U.S. Food and Drug Administration. Current interpretive data was last revised on 2020. Urine 05/21/2024 5:34 PM SMOKING PIPE MOUNTER 05/21/2024 5:46 PM SMOKING PIPE MOUNTER Marcus Amaya MD LAB URINE ORDERABLES F inal Result Performing Organization Address [facility] [place] [address] * (ABNORMAL) Urinalysis, microscopic only (05/21/2024 5:34 PM SMOKING PIPE MOUNTER) [facility] WBC, ur 0-5 0 - 5 /HPF RBC, ur 0-2 0 - 2 /HPF [facility] Epithelial cells, squamous, ur 1-5 0 - 5 /HPF [facility] Bacteria, ur Trace(A) [facility] Mucous, ur Present(A) [facility] Hyaline casts, ur 11-20(A) 0 - 10 /LPF [facility] Urine 05/21/2024 5:34 PM SMOKING PIPE MOUNTER 05/21/2024 5:39 PM SMOKING PIPE MOUNTER Marcus Amaya MD LAB URINE ORDERABLES F inal Result Performing Organization Address [facility] de Phone Number [facility] [place] [place] [address] * Sepsis Lactate w/ Reflex (05/21/2024 4:33 PM SMOKING PIPE MOUNTER) [facility] Sepsis Lactate 1.9 0.7 - 2.0 mmol/L Blood 05/21/2024 4:33 PM SMOKING PIPE MOUNTER 05/21/2024 4:44 PM SMOKING PIPE MOUNTER Marcus Amaya MD LAB BLOOD ORDERABLES F inal Result Performing Organization Address [facility] [place] [address] * eGFR (05/21/2024 3:41 PM SMOKING PIPE MOUNTER) [facility] eGFR 70 >=60 mL/min/1. 73 m2 Comment: [...] last reviewed 2021. Blood 05/21/2024 3:41 PM SMOKING PIPE MOUNTER 05/21/2024 4:03 PM SMOKING PIPE MOUNTER us Chelle Elliott MD LAB BLOOD ORDERABLES Final Result [facility] Department [place] [address] * (ABNORMAL) Differential, auto (05/21/2024 3:41 PM SMOKING PIPE MOUNTER) Pathologist [facility] Neutrophil abs 6.9(H) 1.5 - 6.5 K/cumm Imm gran abs 0.0 0.0 - 0.1 K/cumm [facility] Lymphocyte abs 1.5 0.8 - 3.3 K/cumm [facility] Monocyte abs 0.9(H) 0.2 - 0.8 K/cumm [facility] Eosinophil abs 0.0 0.0 - 0.5 K/cumm [facility] Basophil abs 0.0 0.0 - 0.1 K/cumm [facility] Neutrophil pct 73.5 % [facility] Comment: Interpretive Data Percent cell count reference ranges are not reported, since discordance with absolute values may lead to misinterpretation of CBC data. Current Interpretive Data was last revised on 2017. Imm gran pct 0.3 % [facility] Comment: Interpretive Data Percent cell count reference ranges are not reported, since discordance with absolute values may lead to misinterpretation of CBC data. Current Interpretive Data was last revised on 2017. Lymphocyte pct 15.7 % [facility] Comment: Interpretive Data Percent cell count reference ranges are not reported, since discordance with absolute values may lead to misinterpretation of CBC data. Current Interpretive Data was last revised on 2017. Monocyte pct 10.0 % [facility] Comment: Interpretive Data Percent cell count reference ranges are not reported, since discordance with absolute values may lead to misinterpretation of CBC data. Current Interpretive Data was last revised on 2017. Eosinophil pct 0.1 % [facility] Comment: Interpretive Data Percent cell count reference ranges are not reported, since discordance with absolute values may lead to misinterpretation of CBC data. Current Interpretive Data was last revised on 2017. Basophil pct 0.4 % [facility] Comment: Interpretive Data Percent cell count reference ranges are not reported, since discordance with absolute values may lead to misinterpretation of CBC data. Current Interpretive Data was last revised on 2017. Blood 05/21/2024 3:41 PM SMOKING PIPE MOUNTER 05/21/2024 4:06 PM SMOKING PIPE MOUNTER us Chelle Elliott MD LAB BLOOD ORDERABLES Final Result [facility] Department [place] [address] * CBC with auto differential (05/21/2024 3:41 PM SMOKING PIPE MOUNTER) WBC 9.4 3.8 - 9.9 K/cumm Hgb 13.9 13.0 - 17.5 g/dL [facility] Hct 40.0 38.9 - 50.3 % [facility] Plt 291 150 - 400 K/cumm [facility] MPV 9.1 9.1 - 12.3 fL [facility] RBC 4.59 4.30 - 5.80 M/cumm [facility] MCV 87.1 81.3 - 96.4 fL [facility] MCH 30.3 27.1 - 33.3 pg [facility] MCHC 34.8 32.3 - 35.7 g/dL [facility] RDW CV 13.1 11.1 - 14.9 % [facility] RDW SD 41.8 35.7 - 48.1 fL [facility] NRBC abs 0.00 0.00 - 0.01 K/cumm [facility] Blood (Blood, Venous) 05/21/2024 3:41 PM SMOKING PIPE MOUNTER 05/21/2024 4:06 PM SMOKING PIPE MOUNTER Marcus Amaya MD LAB BLOOD ORDERABLES F inal Result Performing Organization Address [facility] de Phone Number [facility] Department [place] [address] * Lipase (05/21/2024 3:41 PM SMOKING PIPE MOUNTER) [facility] Lipase 15 10 - 99 Units/L Blood (Blood, Venous) 05/21/2024 3:41 PM SMOKING PIPE MOUNTER 05/21/2024 4:03 PM SMOKING PIPE MOUNTER Marcus Amaya MD LAB BLOOD ORDERABLES F inal Result Performing Organization Address [facility] de Phone Number [facility] [place] [place] [address] * (ABNORMAL) Comprehensive metabolic panel (05/21/2024 3:41 PM SMOKING PIPE MOUNTER) [facility] Sodium 136 135 - 145 mmol/L Potassium, pl 3.6 3.3 - 4.9 mmol/L [facility] Chloride 99 97 - 110 mmol/L [facility] CO2 22 22 - 32 mmol/L [facility] Anion gap 15 2 - 15 mmol/L [facility] BUN 22 6 - 25 mg/dL [facility] Creatinine 1.37(H) 0.80 - 1.30 mg/dL [facility] Glucose 92 70 - 199 mg/dL [facility] Comment: Interpretive Data Fasting glucose >/= [...] 2022. Calcium 10.3 8.5 - 10.3 mg/dL [facility] Bilirubin, total 1.5(H) 0.1 - 1.2 mg/dL [facility] Protein, pl 8.5 6.5 - 8.5 g/dL [facility] Albumin 5.1(H) 3.5 - 5.0 g/dL [facility] Alk phos 99 40 - 130 Units/L [facility] ALT 19 7 - 55 Units/L [facility] AST 21 10 - 50 Units/L [facility] Blood 05/21/2024 3:41 PM SMOKING PIPE MOUNTER 05/21/2024 4:03 PM SMOKING PIPE MOUNTER Marcus Amaya MD LAB BLOOD ORDERABLES F inal Result [facility] Department [place] [address] * ECG 12-LEAD (05/21/2024 2:24 PM SMOKING PIPE MOUNTER) Narrative [facility] - 05/21/2024 2:24 PM SMOKING PIPE MOUNTER Huy Mack MD ? 05/21/2024 ??2:27 PM [...] Marcus Amaya MD ECG ORDERABLES Final Result [facility] * ECG 12-LEAD (05/19/2024 11:55 PM SMOKING PIPE MOUNTER) Narrative [facility] - 05/19/2024 11:55 PM SMOKING PIPE MOUNTER Deniz Huitron MD ? 05/19/2024 11:56 PM [...] Casandra Lock MD ECG ORDERABLES Final Result [facility] * XR Chest PA Lateral 2 Views (05/19/2024 10:34 PM SMOKING PIPE MOUNTER) Anatomical Region Laterality Modality Body, Chest N/A Computed Radiogr aphy 05/19/2024 10:4 3 PM SMOKING PIPE MOUNTER Impressions 05/20/2024 9:03 AM SMOKING PIPE MOUNTER Comparison is made to 07/05/2023. Thoracic aorta [...] Collins Wills M.D. Narrative 05/20/2024 9:03 AM SMOKING PIPE MOUNTER EXAMINATION: 2 view chest radiograph Procedure Note [...] CTA Chest Abdomen Pelvis (05/19/2024 10:20 PM SMOKING PIPE MOUNTER) Anatomical Region Laterality Modality Body N/A Computed Tomogra phy 05/19/2024 10:5 1 PM SMOKING PIPE MOUNTER Impressions 05/20/2024 9:06 AM SMOKING PIPE MOUNTER 1. ??Unchanged thoracoabdominal aortic dissection status post [...] Collins Wills M.D. Narrative 05/20/2024 9:06 AM SMOKING PIPE MOUNTER EXAMINATION: ??CT ANGIOGRAPHY OF THE CHEST, ABDOMEN [...] (baseline, 2hr, 4hr, 6hr) (05/19/2024 9:12 PM SMOKING PIPE MOUNTER) [facility] Trop I hs 4 <=35 ng/L Comment: Interpretive Data For further hscTnI resources including the diagnostic algorithm and an aid in interpretation, copy and paste this link: [email or web address].org/[email or web address] Current Interpretive Data last revised 2019. Blood 05/19/2024 9:12 PM SMOKING PIPE MOUNTER 05/19/2024 9:28 PM SMOKING PIPE MOUNTER Cristobal Waldrop MD LAB BLOOD ORDERABLE S Final Result [facility] Department [place] [address] * eGFR (05/19/2024 9:12 PM SMOKING PIPE MOUNTER) [facility] eGFR 85 >=60 mL/min/1. 73 m2 Comment: [...] last reviewed 2021. Blood 05/19/2024 9:12 PM SMOKING PIPE MOUNTER 05/19/2024 9:28 PM SMOKING PIPE MOUNTER Cristobal Waldrop MD LAB BLOOD ORDERABLE S Final Result [facility] [place] [address] * (ABNORMAL) Differential, auto (05/19/2024 9:12 PM SMOKING PIPE MOUNTER) Neutrophil abs 7.6(H) 1.5 - 6.5 K/cumm Imm gran abs 0.1 0.0 - 0.1 K/cumm [facility] Lymphocyte abs 0.9 0.8 - 3.3 K/cumm [facility] Monocyte abs 0.5 0.2 - 0.8 K/cumm [facility] Eosinophil abs 0.0 0.0 - 0.5 K/cumm [facility] Basophil abs 0.0 0.0 - 0.1 K/cumm [facility] Neutrophil pct 84.3 % [facility] Comment: Interpretive Data Percent cell count reference ranges are not reported, since discordance with absolute values may lead to misinterpretation of CBC data. Current Interpretive Data was last revised on 2017. Imm gran pct 0.7 % [facility] Comment: Interpretive Data Percent cell count reference ranges are not reported, since discordance with absolute values may lead to misinterpretation of CBC data. Current Interpretive Data was last revised on 2017. Lymphocyte pct 9.4 % [facility] Comment: Interpretive Data Percent cell count reference ranges are not reported, since discordance with absolute values may lead to misinterpretation of CBC data. Current Interpretive Data was last revised on 2017. Monocyte pct 5.3 % [facility] Comment: Interpretive Data Percent cell count reference ranges are not reported, since discordance with absolute values may lead to misinterpretation of CBC data. Current Interpretive Data was last revised on 2017. Eosinophil pct 0.1 % [facility] Comment: Interpretive Data Percent cell count reference ranges are not reported, since discordance with absolute values may lead to misinterpretation of CBC data. Current Interpretive Data was last revised on 2017. Basophil pct 0.2 % [facility] Comment: Interpretive Data Percent cell count reference ranges are not reported, since discordance with absolute values may lead to misinterpretation of CBC data. Current Interpretive Data was last revised on 2017. Blood 05/19/2024 9:12 PM SMOKING PIPE MOUNTER 05/19/2024 9:28 PM SMOKING PIPE MOUNTER us Cristobal Waldrop MD LAB BLOOD ORDERABLE S Final Result [facility] Department [place] [address] * CBC with auto differential (05/19/2024 9:12 PM SMOKING PIPE MOUNTER) WBC 9.0 3.8 - 9.9 K/cumm Hgb 13.7 13.0 - 17.5 g/dL [facility] Hct 39.7 38.9 - 50.3 % [facility] Plt 293 150 - 400 K/cumm [facility] MPV 9.2 9.1 - 12.3 fL [facility] RBC 4.53 4.30 - 5.80 M/cumm [facility] MCV 87.6 81.3 - 96.4 fL [facility] MCH 30.2 27.1 - 33.3 pg [facility] MCHC 34.5 32.3 - 35.7 g/dL [facility] RDW CV 13.2 11.1 - 14.9 % [facility] RDW SD 42.5 35.7 - 48.1 fL [facility] NRBC abs 0.00 0.00 - 0.01 K/cumm [facility] Blood 05/19/2024 9:12 PM SMOKING PIPE MOUNTER 05/19/2024 9:28 PM SMOKING PIPE MOUNTER us Cristobal Waldrop MD LAB BLOOD ORDERABLE S Final Result Performing Organization Address [facility] de Phone Number [id number] [place] [address] * aPTT (05/19/2024 9:12 PM SMOKING PIPE MOUNTER) aPTT 34 28 - 38 sec Comment: Interpretive Data Heparin therapeutic range: 66.0 - 100.0 seconds. Range based on correlation with therapeutic heparin activity range of 0.3 - 0.7 Units/mL. Current interpretive data was last revised on 2023. Blood 05/19/2024 9:12 PM SMOKING PIPE MOUNTER 05/19/2024 9:32 PM SMOKING PIPE MOUNTER us Cristobal Waldrop MD LAB BLOOD ORDERABLE S Final Result Performing Organization Address [facility] de Phone Number [id number] [place] [address] * (ABNORMAL) Protime-INR (05/19/2024 9:12 PM SMOKING PIPE MOUNTER) PT 14.2(H) 9.7 - 13.0 sec INR 1.31(H) 0.90 - 1.20 [facility] Comment: Interpretive data Oral anticoagulant therapeutic ranges: Venous thromboembolism prophylaxis or treatment: 2.0-3.0 CARDIOLOGY Standard range: 2.0-3.0 High-intensity range: 2.5-3.5 Refer to indication-specific guidelines for appropriate target ranges for prosthetic heart valve replacement. Current interpretive data was last revised on 2019. Blood 05/19/2024 9:12 PM SMOKING PIPE MOUNTER 05/19/2024 9:32 PM SMOKING PIPE MOUNTER Cristobal Waldrop MD LAB BLOOD ORDERABLE S Final Result Performing Organization Address City/[facility] Co de Phone Number [facility] Department [place] [address] * Type and screen (05/19/2024 9:12 PM SMOKING PIPE MOUNTER) [facility] Ellen, indirect Negative ABO Rh A Positive [facility] Blood 05/19/2024 9:12 PM SMOKING PIPE MOUNTER 05/19/2024 9:22 PM SMOKING PIPE MOUNTER Narrative [facility] - 05/19/2024 10:07 PM SMOKING PIPE MOUNTER Has the patient had Daratumumab or Isatuximab in the past 6 months?->Unknown Cristobal Waldrop MD LAB BLOOD BANK TEST ORDERABLES Final Result Performing Organization Address [facility] Co de Phone Number [phone] [place] [address] * (ABNORMAL) Comprehensive metabolic panel (05/19/2024 9:12 PM SMOKING PIPE MOUNTER) [facility] Sodium 139 135 - 145 mmol/L Potassium, pl 3.9 3.3 - 4.9 mmol/L [facility] Chloride 100 97 - 110 mmol/L [facility] CO2 21(L) 22 - 32 mmol/L [facility] Anion gap 18(H) 2 - 15 mmol/L [facility] BUN 18 6 - 25 mg/dL [facility] Creatinine 1.17 0.80 - 1.30 mg/dL [facility] Glucose 108 70 - 199 mg/dL [facility] Comment: Interpretive Data Fasting glucose >/= [...] Calcium 10.2 8.5 - 10.3 mg/dL [facility] Bilirubin, total 1.2 0.1 - 1.2 mg/dL [facility] Protein, pl 8.7(H) 6.5 - 8.5 g/dL [facility] Albumin 5.1(H) 3.5 - 5.0 g/dL [facility] Alk phos 105 40 - 130 Units/L [facility] ALT 23 7 - 55 Units/L [facility] AST 18 10 - 50 Units/L [facility] Blood 05/19/2024 9:12 PM SMOKING PIPE MOUNTER 05/19/2024 9:28 PM SMOKING PIPE MOUNTER us Cristobal Waldrop MD LAB BLOOD ORDERABLE S Final Result [facility] [employer] [place] [address] * Hepatitis C antibody Blood (09/06/2023 11:15 AM CDT) Hep C Ab Nonreactive Nonreactive Comment:Antibodies to HCV no t detected. Does NOT exclude the possibility of recent exposure to HCV. Current interpretive data was last revised on 22 Blood 09/06/2023 11:1 5 AM CDT 09/06/2023 11:34 AM CDT us Clyde Nelson MD LAB MICROBIOLOGY - GENERAL SHAUNA LOPEZ Edited Result - Final [facility] [place] [address] [place] [address] from Last 3 Months or Most Recently Relevant to Health Maintenance Insurance [employer] [facility] [employer] [facility] Advance Directives For more information, please contact: [phone] * Full Code (Latest Code Status on [...] Meron Tucker Health Care Agent Care Teams Skills Auditor Relationship Specialty Start Date End Date [employer] [address] [place] [address] PCP - General Physician Retail Warehouse Associate 06/14/24 Leo Manazno MD [id number] [place] [address] Surgeon Vascular Surgery 05/16/23
[2024-07-03 10:24] LABS: SARS-CoV-2 RNA PCR Negative (Negative)
[2024-07-03 10:25] LABS: Influenza A QL RT-PCR Positive (Negative); Influenza B QL RT-PCR Negative (Negative); RSV RNA, RT-PCR Negative (Negative)
--- NOTE | 2024-07-03 10:26 | PC.NURSE ---
PT REPORTS NO RELIEF WITH PAIN MEDICATION, ERP IS AWARE. AWAITING FURTHER ORDERS.
[2024-07-03 10:30] LABS: Lactic Acid Reflex 0.9 mmol/L (0.4-2.0)
[2024-07-03] MEDS: KETOROLAC 30 MG/ML VIAL (*BKC) IV PUSH (10:35)
--- NOTE | 2024-07-03 11:05 | PC.NURSE ---
PT HAS RETURNED FROM CT, REPORTS ABD AND TESTICLE PAIN HAVE IMPROVED, HOWEVER THE LEFT SIDE LOWER BACK PAIN REMAINS, STATING HE CANNOT GET COMFORTABLE. ERP IS AWARE. WILL CONTINUE TO MONITOR.
[2024-07-03 11:27] LABS: Add Urine Microscopic? NO; Appearance Urine Clear (Clear); Bilirubin Urine Negative (Negative); Blood Urine Negative (Negative); Color Urine Yellow (Yellow); Glucose Urine UA Negative (Negative); Ketones Urine Trace (Negative); Leukocyte Esterase Ur Negative LEU/UL (Negative); Nitrate Urine Negative (Negative); Protein Urine Negative (Negative); Urobilinogen Urine 0.2 mg/dL (0.2-1.0)
[2024-07-03] MEDS: oxyCODONE/ACETAMINOPHEN (*CRX) 10-325 MG TABLET 1 TAB PO (12:02)
== END 2024-07-03 12:20 | disposition home or self-care (01) ==
PROVIDERS: Emergency Provider Emergency Medicine; PCP Physician Assistant Medical
DX: J10.1 Influenza due to other identified influenza virus with other respiratory manifestations (principal); R10.32 Left lower quadrant pain; Z79.899 Other long term (current) drug therapy; Z20.822 Contact with and (suspected) exposure to COVID-19
CPT/HCPCS: 36415; 71275; 74174; 80053; 81003; 83605; 83690; 85025; 85610; 85730; 87637; 96361; 96374; 96375; 99284; A9270; J1171; J1885; J2405; J7030; Q9967

== ENCOUNTER 2024-07-08 11:35 | Emergency (ER) | payer OTHER, SELFPAY ==
--- NOTE | ~2024-07-08 | CT_ITS ---
EXAMINATION: CTA chest DATE: 07/08/2024 13:23 INDICATION: Back pain, nausea, vomiting and diarrhea. TECHNIQUE: Computed tomographic angiography (CTA) of the chest was performed without and with 100 mL Omnipaque-350 intravenous contrast. Volume-rendered 3D-reconstructions of the aorta and large arterie s were constructed by the technologist on a separate workstation. Automated exposure control and iter ative reconstruction technique were employed. The dose-length product was 423.78 mGy-cm. COMPARISON: 07/03/2024 FINDINGS: Small region of groundglass opacities and small nodules in the superior segment of the left lower lob e which is new since the study from less than one week prior consistent with pneumonia. Mild subpleur al dependent atelectasis in the right lower lobe. No pulmonary edema, pleural effusion or pneumothora x. Heart size is normal. No pericardial effusion. No pathologically enlarged thoracic lymphadenopathy . Again seen is an endoluminal stenting of the thoracic aorta beginning between the take off of the l eft internal jugular left subclavian arteries. There is also associated stenting of the proximal left subclavian artery. The stented descending thoracic aorta measures up to 4.4 cm maximal diameter. 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 The endoleak and contra st opacified false lumen peripheral to the stent supplies the celiac axis as well as spinal arteries at the level of L1. Visualized upper abdomen is otherwise unremarkable. Bones are unremarkable. IMPRESSION: 1. New groundglass and nodular opacities at the superior segment of the left lower lobe consistent wi th pneumonia. 2. 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 Reviewed, dictated and finalized at location A. STANT PROFESSOR OF ANTHROPOLOGY IMPRESSION: 1. New groundglass and nodular opacities at the superior segment of the left lo wer lobe consistent with pneumonia. 2. 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
--- NOTE | 2024-07-08 11:37 | ED_ITS ---
HPI - General Adult General Chief complaint: Nausea/Vomiting/Diarrhea Stated complaint: n/v/d Time Seen by Provider: 07/08/24 11:36 History of Present Illness HPI narrative: Eriberto is a 34M with a history of 2 aortic dissections, CAD, chronic pain as well as being diagnosed with influenza 5 days ago presented to the ED with continued nausea, vomiting and back pain. He improved after his last visit but began feeling very sick yesterday with a lot of non-bloody vomiting and diarrhea. He could not keep any fluids down or his meds down this morning so he came to the ED. Related Data Home Medications ?Medication ?Instructions ?Recorded ?Confirmed ?Last Taken ?Type amitriptyline 50 mg tablet mg 07/03/24 Unknown History amlodipine 10 mg tablet mg 07/03/24 Unknown History hydralazine 50 mg tablet mg 07/03/24 Unknown History labetalol 200 mg tablet mg 07/03/24 Unknown History lamotrigine 25 mg tablet mg 07/03/24 Unknown History methocarbamol 750 mg tablet mg 07/03/24 Unknown History pravastatin 10 mg tablet mg 07/03/24 Unknown History pregabalin 100 mg capsule mg 07/03/24 Unknown History quetiapine 50 mg tablet mg 07/03/24 Unknown History Allergies Allergy/AdvReac Type Severity Reaction Status Date / Time lisinopril Allergy Severe Swelling Verified 07/08/24 11:40 of Lip/Tongue/Throat amoxicillin AdvReac Rash Verified 07/08/24 11:40 Review of Systems 2 Review of Systems: All systems reviewed & are unremarkable except as noted in HPI and below [facility] Past Medical History Medical History History of kidney stones History of aortic dissection Social History Social History Substance use: current Substance use type: marijuana Exam 2 Const: General: cooperative, healthy appearing, comfortable, no acute distress, well developed, alert, awake and Physically active O rientation/consciousness: oriented to person, oriented to place and oriented to time HENMT: Head: normal to inspection, normocephalic and atraumatic Ears: h earing grossly normal bilaterally and external ears normal Face/Nose/Sinus: N ormal external nose present Eyes: General: appearance normal, both eyes and all related structures P eriorbital: periorbital findings normal Sclera: sclerae normal Pupils: E qual, round and reactive pupils present Neck: Neck: normal visual inspection Chest: Chest palpation & inspection: normal inspection of the chest Resp: Effort & Inspection: normal respiratory effort, able to speak in complete sentences and no respiratory distress Auscultation: clear to auscultation bilaterally Cardio: Jugular venous distension: no JVD Rate: regular rate Rhythm: r egular rhythm GI: Inspection: normal to inspection GI Palp: Yes Soft to palpation A uscultation: normal bowel sounds Other: Diffuse TTP in all quadrants of the abdomen Skin: General skin exam: normal color and no rashes or lesions noted Neuro: General: oriented to person, oriented to place and oriented to time Cranial nerves: Yes Equal, round and reactive pupils present Extrem: General: normal to inspection Course Course Emergency Course: Ordered labs, fluids and CT scan. EKG showed NSR with a rate of 76, normal axis, and no ST elevation/depression. Labs showed mild anemia, and mildly elevated CRP Vital Signs Vital signs: Vital Signs Temperature 96.9 F L 07/08/24 11:38 Pulse Rate 78 07/08/24 11:38 Respiratory Rate 18 07/08/24 11:38 Blood Pressure 107/76 07/08/24 11:38 Pulse Oximetry 96 07/08/24 11:38 Oxygen Delivery Room Air 07/08/24 11:38 Temperature 97.5 F L 07/08/24 15:19 Pulse Rate 58 L 07/08/24 15:19 Respiratory Rate 18 07/08/24 15:19 Blood Pressure 148/89 H 07/08/24 15:19 Pulse Oximetry 99 07/08/24 15:19 Oxygen Delivery Room Air 07/08/24 15:19 Medical Decision Making Vital Signs Vital Signs: Vital Signs Temperature 96.9 F L 07/08/24 11:38 Pulse Rate 78 07/08/24 11:38 Respiratory Rate 18 07/08/24 11:38 Blood Pressure 107/76 07/08/24 11:38 Pulse Oximetry 96 07/08/24 11:38 Oxygen Delivery Room Air 07/08/24 11:38 Temperature 97.5 F L 07/08/24 15:19 Pulse Rate 58 L 07/08/24 15:19 Respiratory Rate 18 07/08/24 15:19 Blood Pressure 148/89 H 07/08/24 15:19 Pulse Oximetry 99 07/08/24 15:19 Oxygen Delivery Room Air 07/08/24 15:19 Lab Data 07/08/24 12:09 07/08/24 12:09 Labs: Lab Results 07/08/24 Range/Units 12:09 WBC 6.4 (4.8-10.8) K/mm3 RBC 4.16 L (4.70-6.10) M/mm3 Hgb 12.4 L (14.0-18.0) g/dL Hct 38.7 L (40.0-54.0) % MCV 93.0 (78.0-102.0) fL MCH 29.8 (27.0-31.0) pg MCHC 32.0 (32-36) g/dL RDW 13.0 (11.6-14.4) % Plt Count 254 (150-420) K/mm3 MPV 8.3 L (8.7-11.0) fl Immature Gran % (Auto) 0.5 H (0.0-0.0) % Neut % (Auto) 70.9 H (50.0-70.0) % Lymph % (Auto) 20.6 (18.0-42.0) % Lucas % (Auto) 7.6 (2.0-11.0) % Eos % (Auto) 0.2 L (1.0-6.0) % Baso % (Auto) 0.2 (0.0-1.0) % Lymph # (Auto) 1.31 (1.10-4.50) K/mm3 Lucas # (Auto) 0.48 (0.10-0.90) K/mm3 Eos # (Auto) 0.01 L (0.02-0.50) K/mm3 Baso # (Auto) 0.01 (0.00-0.10) K/mm3 Abs Immat Gran (auto) 0.03 H (0.00-0.00) K/mm3 Absolute Neuts (auto) 4.51 (1.70-7.20) K/mm3 Absolute Nucleated RBC 0.00 (0.00-0.00) K/mm3 Nucleated RBC % 0.0 (0-0.0) % Sodium 139 (136-145) mmol/L Potassium 3.9 (3.5-5.1) mmol/L Chloride 104 (98-108) mmol/L Carbon Dioxide 23 (21-32) mmol/L Anion Gap 12 (4-12) mmol/L BUN 19 H (7-18) mg/dL Creatinine 1.15 (0.70-1.30) mg/dL Estim Creat Clear Calc 82 ml/min Estimated GFR > 60 (59 - ) Glucose 95 (70-99) mg/dL Calculated Osmolality 290 (285-295) mOsm/kg Lactic Acid 0.5 (0.4-2.0) mmol/L Calcium 8.7 (8.5-10.1) mg/dL Magnesium 1.8 (1.8-2.4) mg/dL Total Bilirubin 0.6 (0.00-1.00) mg/dL AST < 10 L (15-37) U/L ALT 13 L (16-63) U/L Alkaline Phosphatase 103 (46-116) U/L Troponin I < 4.0 (0.00-60.4) ng/L C-Reactive Protein 3.3 H (0.0-0.9) mg/dL Total Protein 7.8 (6.4-8.2) g/dL Albumin 3.7 (3.4-5.0) g/dL Lipase 13 L (16-77) U/L Urine Color Yellow (Yellow) Urine Appearance Clear (Clear) Urine pH 5.5 (5.0-8.0) Ur Specific [place] 1.015 (1.010-1.020) Urine Protein Negative (Negative) Urine Glucose (UA) Negative (Negative) Urine Ketones Negative (Negative) Ur Blood (Man) Negative (Negative) Urine Nitrate Negative (Negative) Urine Bilirubin Negative (Negative) Urine Urobilinogen 0.2 (0.2-1.0) mg/dL Leukocyte Esterase Rfl Negative (Negative) SHARON/UL Discharge Plan Discharge Clinical Impression: Influenza, Pneumonia Patient Disposition: Home, Self-Care Condition: Stable Instructions: Antibiotic Form Patient Language: Citizen Of [place] Prescriptions: New doxycycline hyclate 100 mg tablet 100 mg PO DAILY Qty: 10 0RF ondansetron 4 mg tablet,disintegrating 4 mg PO Q8H PRN (Reason: nausea and vomiting) Qty: 90 0RF No Action labetalol 200 mg tablet amitriptyline 50 mg tablet lamotrigine 25 mg tablet methocarbamol 750 mg tablet pravastatin 10 mg tablet amlodipine 10 mg tablet hydralazine 50 mg tablet pregabalin 100 mg capsule quetiapine 50 mg tablet oxycodone-acetaminophen [Percocet] 10-325 mg tablet 1 tablet PO Q6H PRN (Reason: pain) Qty: 20 0RF Follow-up/Referrals: Mert,SANCHEZ Rollins [Primary Care Provider] - Stand Alone Forms: Work/School Release IP
[2024-07-08 11:38] VITALS: BP 107/76; PULSE 78; RESP 18; TEMP 36.1; O2SAT 96
--- OUTSIDE RECORDS SUMMARY | 2024-07-08 11:40 | XMS_ITS | Referral Summary ---
Author Organization [facility] Address [address] [place] [address] Care Team Providers Care National Van Owner Operator Name Role Phone Unavailable Primary Care Provider Unavailabl e Source Comments [facility],non-owned Affiliates and Associated Physician Practices is amultiple site organization consisting of ambulatory clinics and hospital sitesin [place], [place], [place] and [place]. This disclosure is being madepursuant to the Care Everywhere program and may not contain all information available regarding this patient. Last updated 18.[facility] PhysicianPortal Social History Tobacco Use Types Packs/Day Years Used Date Smoking Tobacco: Never Assessed Sex and Gender Information Value Date Recorded Sex Assigned at Not on file Gender Identity Not on file Sexual Orientation Not on file Plan of Treatment Not on file
--- OUTSIDE RECORDS SUMMARY | 2024-07-08 11:40 | XMS_ITS | Clinical Summary ---
Author Organization [facility] Address [address] [place] [address] Care Team Providers Care Stone Circular Sawyer Name Role Phone Unavailable Primary Care Provider Unavailabl e Source Comments [facility],non-owned Affiliates and Associated Physician Practices is amultiple site organization consisting of ambulatory clinics and hospital sitesin [place], [place], [place] and [place]. This disclosure is being madepursuant to the Care Everywhere program and may not contain all information available regarding this patient. Last updated 18.[facility] Social History Tobacco Use Types Packs/Day Years [...]
--- OUTSIDE RECORDS SUMMARY | 2024-07-08 11:40 | XMS_ITS | Clinical Summary ---
Author Organization [facility] Address [address] [place] [address] Care Team Providers Care Fishing Game Warden Name Role Phone Leo Manzano MD Unavailable [phone] Ronak Painting Primary Care Provider [phone] Allergies Active Allergy Reactions Criticality Noted Date [...] line Assessment & Plan (06/24/2023 12:04 PM MARKET RISK ANALYST): - CT without discitis or osteomyelitis on 06/13 - MRI 06/13 also without discitis or osteomyelitis - no narcotic pain medications are required from vascular surgery perspective - Consult pain management team Pseudoaneurysm following procedure ([facility]) Assessment & Plan (06/24/2023 10:40 AM MARKET RISK ANALYST): - s/p vascular access - Q4 N/V checks - no current surgical intervention - no activity restrictions, OOB/ ambulate Infrarenal abdominal aortic aneurysm, without ru pture 06/13/2023 Assessment & Plan (06/24/2023 10:41 AM MARKET RISK ANALYST): s/p TEVAR on 06/05/23 (graft terminates above celiac take off) 06/11 discharged home; 06/13 Re admitted for worsening back pain, HTN, and subjective fever/chills. - CT 06/13 shows no change in aneurysm, no stent migration, no increase in false lumen perfusion - non operative Polysubstance abuse ([facility]) 06/10/2023 Moderate malnutrition ([facility]) 06/09/2023 Dissection of abdominal aorta ([facility]) 06/03/19 Urinary retention 05/16/2023 Assessment & Plan (05/16/2023 10:44 AM MARKET RISK ANALYST): Patient with urinary retention requiring straight cath X1 05/15, now voiding without any issues. - Continue Flomax. - Patient requests urology follow up, referral placed. Epistaxis 05/13/2023 Assessment & Plan (05/13/2023 12:42 PM MARKET RISK ANALYST): Significant nose bleed in the OR requiring intra-op ENT c/s. DL performed, no other sources of bleeding visualized. ACT post protamine 149. - ENT following - ocean spray tid - no other s/s bleeding Pneumonia 05/13/2023 Assessment & Plan (05/13/2023 12:43 PM MARKET RISK ANALYST): Tracheal aspirate 05/05 with Haemophilus Inf - susana(05/04 - 05/10), linezolid (05/04-05/06) HTN (hypertension) 05/13/2023 Assessment & Plan (05/28/2024 8:41 AM MARKET RISK ANALYST): BP well controlled. - continue home amlodipine [...] needed Assessment & Plan (06/24/2023 10:41 AM MARKET RISK ANALYST): Difficult to control Htn. Dr. Abarca following - Continue amlodipine, lisinopril, coreg, hydralazine - SBP goal 120-140 - VS q 4 hrs and prn Assessment & Plan (06/21/2023 7:57 AM MARKET RISK ANALYST): BP stable at present. Recommend discontinuation of the diltiazem and continue amlodipine (as opposed to giving two calcium channel blockers) Assessment & Plan (06/20/2023 8:33 PM MARKET RISK ANALYST): BP improving. Recommend continue medications and follow up bp, except recommend discontinuation of the diltiazem as he is already on a calcium channel louie, amlodipine Assessment & Plan (06/18/2023 7:59 AM MARKET RISK ANALYST): Patient with continued hypertension. Blood pressure in the right arm levels are improved now in the 130s and 140s. Recommend consideration for adjustment of medications as follows. 1. Add spironolactone 25 mg a day 2. Consider adding clonidine 0.1 mg twice a day Assessment & Plan (06/11/2023 7:50 AM MARKET RISK ANALYST): Patient hypertensive. Recommend resuming hydralazine 25 mg 3 times a day. Continue the amlodipine and carvedilol. Follow-up blood pressure. The patient should have follow-up blood pressure when he leaves the hospital as well. Assessment & Plan (06/10/2023 3:48 PM MARKET RISK ANALYST): Goal systolic BP 140-180 for one month [...] status Assessment & Plan (06/09/2023 10:54 AM MARKET RISK ANALYST): Blood pressure well controlled at present. Medicines are being adjusted. Currently on carvedilol and hydralazine. A want to transition to amlodipine 5 mg a day to wean hydralazine, as tolerated, as 3 times a day medication can be difficult long-term Assessment & Plan (05/13/2023 12:49 PM MARKET RISK ANALYST): Hx of uncontrolled HTN, non-compliant to medications. [...] time Assessment & Plan (06/11/2023 7:50 AM MARKET RISK ANALYST): Clinically stable. Renal function stable. Blood pressure improved We will recommend genetic testing as an outpatient Assessment & Plan (06/10/2023 3:48 PM MARKET RISK ANALYST): Presents with abdominal pain and concern for progression of dissection on CT - 06/05/23: OR s/p TEVAR extension and dissection stent placement - BP management per HTN - pain control - Q4 NV checks, Q2 VS - lovenox DVT ppx - He will f/u with Dr. Abarca as outpatient for genetics testing. Assessment & Plan (06/09/2023 10:54 AM MARKET RISK ANALYST): Clinically stable. Renal function stable. Blood pressure improved We will recommend genetic testing as an outpatient Assessment & Plan (05/16/2023 10:45 AM MARKET RISK ANALYST): Patient presented on 05/01 with acute Chest [...] 05/01/2023 Assessment & Plan (05/29/2024 7:45 AM MARKET RISK ANALYST): 34 y/o M with hx of symptomatic Type B aortic dissection requiring TBE and subsequent extension with TEVAR/dissection stents presents as OSH transfer for significant abdominal pain. No concern for mesenteric ischemia. - c/w impulse control - regular diet - transitioned to oral anti-hypertensive - pain management following. 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 Dilaudid discontinued 05/28. Pain signed off. Assessment & Plan (10/03/2023 2:00 PM CDT): Follows with Dr Abarca Cont antihypertensives Assessment & Plan (06/18/2023 8:00 AM MARKET RISK ANALYST): Aortic imaging stable on recent CT scan. Continue blood pressure control. Assessment & Plan (05/02/2023 2:02 PM MARKET RISK ANALYST): 32y/o male with uncontrolled HTN who presented to an OSH ER with acute onset shortness of breath, chest pain and back pain. 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 He was transferred to [facility] for further evaluation and treatment. Here, he was seen by vascular surgery and admitted to the CTICU for impulse control. He had recurrent worsening pain and a repeat CTA this morning. This showed i nterval cranial propagation of a type B thoracic [...] no extraluminal contrast present to suggest aortic rupture , for which CTS was consulted. CTA reviewed with Daniel Balderas, and Mesha. All feel these findings not to be 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 door to door of a type a dissection, therefore no [...] Type Department Care Team Description 07/02/2024 Telephone [facility] [address] [place] [address] Adrianne Adams MD PhD PMC Preprocedure 06/27/2024 1:00 PM MARKET RISK ANALYST Office Visit [facility] Neph[facility] [address] [facility] 5th [place] [address] [place] [address] ANGI (acute kidney injury) (HCC) (Primary Dx) 06/20/2024 7:27 AM MARKET RISK ANALYST - 06/20/2024 11:59 PM MARKET RISK ANALYST Hospital Encounter [facility] [address] [facility] [address] [place] [address] Jeremie Macias MD Yoshida, [place], MD PhD Sacroiliitis (HCC) (Primary Dx); Spondylosis of lumbar region without myelopathy or radiculopathy Discharge Disposition: Discharge to home or self care 06/08/2024 Telephone [facility] Card[facility] [address] [facility] 8[address] [place] [address] [place] [phone] Joaquín Abarca MD overdue orders 05/25/[address] [phone] Essie Singh RN 05/23/2024 7:45 PM MARKET RISK ANALYST - 05/29/2024 10:36 AM MARKET RISK ANALYST Hospital Encounter [address] [phone] Gonzalez Lamar DO Ohman, John Westley, MD Abdominal pain (Primary Dx) Discharge Disposition: Discharge to home or self care 05/21/2024 4:17 PM MARKET RISK ANALYST - 05/21/2024 8:27 PM MARKET RISK ANALYST Emergency [facility] Emergency Department [address] [place] [phone] Marcus Amaya MD Nausea and vomiting, unspecified vomiting type (Primary Dx) Discharge Disposition: Discharge to home or self care 05/19/2024 9:40 PM MARKET RISK ANALYST - 05/20/2024 1:34 AM MARKET RISK ANALYST Emergency [facility] Emergency Department [address] [place] [phone] Casandra Lock MD Renz, Nicholas Robert, MD Abdominal pain (Primary Dx); Chronic bilateral low back pain without sciatica; Abdominal aortic aneurysm dissection (HCC) Discharge Disposition: Discharge to home or self care 05/16/2024 2:39 PM MARKET RISK ANALYST - 05/16/2024 11:59 PM MARKET RISK ANALYST Hospital Encounter [facility] [address] [facility] [address] [place] [address] Adrianne Adams MD PhD Sacroiliitis (HCC) (Primary Dx) Discharge Disposition: Discharge to home or self care 04/24/2024 Orders Only [facility] [address] [facility] [address] [place] [address] [place] [address] Miguel Dominguez MD ANGI (acute kidney injury) [...] drink = 0.6 oz pur e alcohol) [facility] Utilities Answer Date Recorded In the [...] often do you attend chur ch or taoist services? Never 05/24/2024 Do you belong to any clubs o r organizations such as synagogue groups, unions, fraternal or athletic groups, or [...] any time in the past 12 m [facility], were you homeless or [...] on file Legal Sex Male 3:42 AM MARKET RISK ANALYST Gender Identity Not on file Sexual Orientation Straight 06/12/2023 11 :43 PM MARKET RISK ANALYST Obstetrics History Last Filed Vital Signs Vital Sign Reading Time Taken Comments Blood Pressure 101/67 06/27/2024 12:49 PM MARKET RISK ANALYST Pulse 83 06/27/2024 12:49 PM MARKET RISK ANALYST Temperature 36.6 C (97.8 F) 06/20/2024 7:35 AM MARKET RISK ANALYST Respiratory Rate 15 06/20/2024 8:49 AM MARKET RISK ANALYST Oxygen Saturation 96% 06/20/2024 8:49 AM MARKET RISK ANALYST Inhaled Oxygen Concentration - - Weight 95.9 kg (211 lb 6.4 oz) 06/27/2024 12:49 PM MARKET RISK ANALYST Height 175.3 cm (5' 9 ) 06/27/2024 12:49 PM MARKET RISK ANALYST Body Mass Index 31.22 06/27/2024 12:49 PM MARKET RISK ANALYST Plan of Treatment Health Maintenance Due Date Last Done Comments DTaP/Tdap/Td Vaccine (5 - Tdap) 2003 02/23/1994, 1992, 1992, Additional history exists Varicella Vaccines (1 of 2 - 13+ 2-dose series) 2005 Regular Well Visit/Exam 18-64 2010 Influenza Vaccine (#1) 2024 Depression Screening 06/13/2024 06/13/2023, 06/03/19 24 Hepatitis B Screening Completed 03/11/1993 , 1992, 1992 Hepatitis C Screening Completed 09/06/2023 HPV Vaccines Aged Out No longer eligi ble based on patient's age to complete this topic Pneumococcal vaccine <65 Aged Out No longer eligible based on patient's age to complete this topic Goals Goal Patient Goal Type Associated Problems Recent Progress Patient-Stated? Author CCM Chronic Pain Care Plan Chronic Care Management No change(06/20 7:42 AM MARKET RISK ANALYST) No Rita Landa, BRIA Note: Problem: Chronic Pain Goals: 1. Minimize further functional decline 2. Maximize quality of life 3. Control pain Strategies: - Activity/exercise program recommendation - Conservative stepwise pain medicine strategy with multi-disciplinary approach - Recommend healthy lifestyle strategies and compensatory methods as needed Medical Devices Implanted Type Area Electro Plater Device Identifier Shelf Expiration Date Model / Serial / Lot [employer] Stent Graft Aortic Covered Tag [id number] Eptfe Nitinol [id number] - [id number] - [id number] Implanted:Qty : 1 on 05/02/2023 by Leo Manzano MD at [facility] Graft N/A: Aorta [employer] [id number] 12/07/2025 [id number] / [id number] / [employer] Stent Graft Thoracic Side Branch Tag [id number] Eptfe Nitinol [id number] - [id number] - [id number] Implanted:Qty : 1 on 05/02/2023 by Leo Manzano MD at [facility] Stent Left: Subclavian [employer] [id number] 06/27/2025 [id number] / [id number] / [employer] Graft Stent Willamina Tag L20cm Od37mm Thoracic Active Control [id number] - [id number] - [id number] Implanted:Qty : 1 on 06/05/2023 by Nikhil Samuel MD at [facility] Stent N/A: Descending Thoracic Aorta W[employer] [id number] 04/12/2024 [id number] / [id number] / [employer] Zenith 36mm 20-30mm 16mm 180mm 9 Dissection Introducer Sheath [id number] - [id number] Implanted:Qty : 1 on 06/05/2023 by Nikhil Samuel MD at [facility] Stent N/A: Descending Thoracic Aorta [employer] [id number] 12/20/2025 [id number] / / [id number] [employer] Device Clsr Perclose Prostyle Sut-Mediatd Closure-Repai r Sys 71092-43 - [id number] Implanted:Qty : 3 on 05/02/2023 by Leo Manzano MD at [facility] Vascular Closure Device Left: Common Femoral Artery [employer] [id number] 09/26/2024 [id number] / / [id number] Description:Same lot number [employer] Device Clsr Perclose Prostyle Sut-Mediatd Closure-Repai r Sys 75016-84 - [id number] Implanted:Qty : 1 on 06/05/2023 by Nikhil Samuel MD at [facility] Left: Groin [employer] [id number] 12/27/2024 [id number] / / [id number] [employer] Device Clsr Perclose Prostyle Sut-Mediatd Closure-Repai r Sys 60672-23 - [id number] Implanted:Qty : 1 on 06/05/2023 by Nikhil Samuel MD at [facility] Left: Groin [employer] [id number] 12/27/2024 [id number] / / [id number] [employer] Ron Contour 6fr 26cm Large Inner Lumen Low Profile Bladder Ag Taper Latex Free 180-223 - [id number] Implanted:Qty : 1 on 09/27/2023 by Marcus Glass MD at [facility] Right: Ureter [employer] Ron 05/16/2026 [id number] / / [id number] [employer] Ron Contour 6fr 26cm Large Inner Lumen Low Profile Bladder Ag Taper Latex Free 180-223 - [id number] Implanted:Qty : 1 on 10/04/2023 by Otoniel Landa MD at [facility] Right: Ureter [employer] Ron 05/16/2026 [id number] / / [id number] Explanted Type Area Electro Plater Device Identifier Shelf Expiration Date Model / Serial / Lot [employer] Inlay [place] 6fr 28cm Pusher Fluoro Marker Atraumatic Insertion Latex Free [id number] - [id number] Implanted:Qty: 1 on 07/04/2023 by Marcus Gamboa MD at [facility] Explanted:Qty: 1 on 07/14/2023 by Stacia Su MD Stent Left: Ureter [employer] [id number] 04/14/2027 [id number] / / [id number] Procedures Procedure Name Priority Date/Time Associated Diagnosis Comments PAIN MGMT IMAGING SI JOINT BILATERAL ARTHROGRPHY Schedule Routine, Read Routine (OP Routine) 06/20/2024 8:41 AM MARKET RISK ANALYST Sacroiliitis (HCC) EGFR Timed 05/28/2024 3:36 AM MARKET RISK ANALYST BASIC METABOLIC PANEL Timed 05/28/2024 3:36 AM MARKET RISK ANALYST CBC WITHOUT DIFFERENTIAL Timed 05/28/2024 3:36 AM MARKET RISK ANALYST LIDOCAINE LEVEL Timed 05/28/2024 3:36 AM MARKET RISK ANALYST LIDOCAINE LEVEL Timed 05/27/2024 3:29 AM MARKET RISK ANALYST TYPE AND SCREEN Timed 05/27/2024 3:29 AM MARKET RISK ANALYST EGFR Routine 05/26/2024 4:38 AM MARKET RISK ANALYST LIDOCAINE LEVEL Timed 05/26/2024 4:38 AM MARKET RISK ANALYST BASIC METABOLIC PANEL Routine 05/26/2024 4:38 AM MARKET RISK ANALYST CBC WITHOUT DIFFERENTIAL Routine 05/26/2024 4:38 AM MARKET RISK ANALYST EGFR Routine 05/25/2024 4:20 PM MARKET RISK ANALYST BASIC METABOLIC PANEL Routine 05/25/2024 4:20 PM MARKET RISK ANALYST CBC WITHOUT DIFFERENTIAL Routine 05/25/2024 4:20 PM MARKET RISK ANALYST LIDOCAINE LEVEL Routine 05/25/2024 4:20 PM MARKET RISK ANALYST CRITICAL CARE Routine 05/25/2024 8:12 AM MARKET RISK ANALYST Abdominal pain POCT GLUCOSE DEVICE Routine 05/25/2024 4 :16 AM MARKET RISK ANALYST POCT GLUCOSE DEVICE Routine 05/24/2024 1 1:36 PM MARKET RISK ANALYST POCT GLUCOSE DEVICE Routine 05/24/2024 8 :50 PM MARKET RISK ANALYST CRITICAL CARE Routine 05/24/2024 8:47 PM MARKET RISK ANALYST Abdominal pain EGFR Routine 05/24/2024 5:43 PM MARKET RISK ANALYST DIFFERENTIAL AUTO Routine 05/24/2024 5:4 3 PM MARKET RISK ANALYST LACTATE, WHOLE BLOOD STAT 05/24/2024 5:43 PM MARKET RISK ANALYST AMYLASE Routine 05/24/2024 5:43 PM MARKET RISK ANALYST PHOSPHORUS Routine 05/24/2024 5:43 PM MARKET RISK ANALYST MAGNESIUM Routine 05/24/2024 5:43 PM MARKET RISK ANALYST COMPREHENSIVE METABOLIC PANEL Routine 05/24/2024 5:43 PM MARKET RISK ANALYST CBC WITH AUTO DIFFERENTIAL Routine 05/24/2024 5:43 PM MARKET RISK ANALYST POCT GLUCOSE DEVICE Routine 05/24/2024 3 :52 PM MARKET RISK ANALYST POCT GLUCOSE DEVICE Routine 05/24/2024 1 1:06 AM MARKET RISK ANALYST POCT GLUCOSE DEVICE Routine 05/24/2024 7 :46 AM MARKET RISK ANALYST CRITICAL CARE Routine 05/24/2024 6:15 AM MARKET RISK ANALYST Abdominal pain POCT GLUCOSE DEVICE Routine 05/24/2024 3 :23 AM MARKET RISK ANALYST POCT GLUCOSE DEVICE Routine 05/23/2024 1 1:04 PM MARKET RISK ANALYST EGFR STAT 05/23/2024 8:33 PM MARKET RISK ANALYST DIFFERENTIAL AUTO STAT 05/23/2024 8:3 3 PM MARKET RISK ANALYST PROTIME-INR STAT 05/23/2024 8:33 PM MARKET RISK ANALYST APTT STAT 05/23/2024 8:33 PM MARKET RISK ANALYST TYPE AND SCREEN Timed 05/23/2024 8:33 PM MARKET RISK ANALYST CBC WITH AUTO DIFFERENTIAL STAT 05/23/2024 8:33 PM MARKET RISK ANALYST CREATINE KINASE (CK), TOTAL STAT 05/23/2024 8:33 PM MARKET RISK ANALYST LACTATE STAT 05/23/2024 8:33 PM MARKET RISK ANALYST CALCIUM, IONIZED STAT 05/23/2024 8:33 PM MARKET RISK ANALYST PHOSPHORUS STAT 05/23/2024 8:33 PM MARKET RISK ANALYST MAGNESIUM STAT 05/23/2024 8:33 PM MARKET RISK ANALYST COMPREHENSIVE METABOLIC PANEL STAT 05/23/2024 8:[address] BODY OUTSIDE REFERENCE Routine 05/23/2024 8:[address] BODY OUTSIDE CONSULT Routine 05/23/2024 8:18 PM MARKET RISK ANALYST POCT GLUCOSE DEVICE Routine 05/23/2024 7 :47 PM MARKET RISK ANALYST POCT RAPID HIV ANTIBODY COMMUNITY SCREENING-PAPA ELIGIBLE Routine 05/21/2024 7:35 PM MARKET RISK ANALYST OXYCODONE CONFIRMATION, URINE Routine 05/21/2024 5:34 PM MARKET RISK ANALYST FENTANYL CONFIRMATION, MS URINE Routine 05/21/2024 5:34 PM MARKET RISK ANALYST AMPHETAMINE, URINE, CONFIRMATION Routine 05/21/2024 5:34 PM MARKET RISK ANALYST URINALYSIS, MICROSCOPIC ONLY STAT 05/21/2024 5:34 PM MARKET RISK ANALYST DRUGS OF ABUSE SCREEN, URINE WITH REFLEX CONFIRMATION Routine 05/21/2024 5:34 PM MARKET RISK ANALYST URINALYSIS AND REFLEX TO MICROSCOPIC STAT 05/21/2024 5:34 PM MARKET RISK ANALYST SEPSIS LACTATE WITH REFLEX STAT 05/21/2024 4:33 PM MARKET RISK ANALYST EGFR STAT 05/21/2024 3:41 PM MARKET RISK ANALYST DIFFERENTIAL AUTO STAT 05/21/2024 3:4 1 PM MARKET RISK ANALYST LIPASE STAT 05/21/2024 3:41 PM MARKET RISK ANALYST COMPREHENSIVE METABOLIC PANEL STAT 05/21/2024 3:41 PM MARKET RISK ANALYST CBC WITH AUTO DIFFERENTIAL STAT 05/21/2024 3:41 PM MARKET RISK ANALYST ECG 12-LEAD STAT 05/21/2024 2:24 PM MARKET RISK ANALYST ECG 12-LEAD STAT 05/19/2024 11:55 PM MARKET RISK ANALYST XR CHEST PA LATERAL 2 VIEWS ED 05/19/2024 10:34 PM MARKET RISK ANALYST CTA CHEST ABDOMEN PELVIS ED 05/19/2024 10:20 PM MARKET RISK ANALYST EGFR STAT 05/19/2024 9:12 PM MARKET RISK ANALYST DIFFERENTIAL AUTO Timed 05/19/2024 9:1 2 PM MARKET RISK ANALYST TROPONIN I HIGH-SENSITIVITY SERIES (BASELINE, 2HR, 4HR, 6HR) STAT 05/19/2024 9:12 PM MARKET RISK ANALYST TYPE AND SCREEN STAT 05/19/2024 9:12 PM MARKET RISK ANALYST APTT STAT 05/19/2024 9:12 PM MARKET RISK ANALYST PROTIME-INR STAT 05/19/2024 9:12 PM MARKET RISK ANALYST COMPREHENSIVE METABOLIC PANEL STAT 05/19/2024 9:12 PM MARKET RISK ANALYST CBC WITH AUTO DIFFERENTIAL Timed 05/19/2024 9:12 PM MARKET RISK ANALYST HEPATITIS C ANTIBODY Routine 09/06/2023 11:15 AM CDT from Last 3 Months or Most Recently Relevant to Health Maintenance Results * Imaging SI Joint Injection Bilateral (61906) (06/20/2024 8:41 AM MARKET RISK ANALYST) Narrative [facility] - 06/20/2024 8:41 AM MARKET RISK ANALYST The images from this study are not interpreted by Radiology. Please refer to the physician's procedure / OR operative note. us Adrianne Adams MD PhD IMG PAIN MGMT PROCEDURE S Final Result Performing Organization Address City/[facility]/ZIP Co de Phone Number [facility] * eGFR (05/28/2024 3:36 AM MARKET RISK ANALYST) eGFR >90 >=60 mL/min/1. 73 m2 Comment: Interpretive Data Reference Interval Normal >/= 90 mL/min/1.73m2 Mildly decreased* 60 - 89 mL/min/1.73m2 Mildly to moderately decreased 45 - 59 mL/min/1.73m2 Moderately to severely decreased 30 - 44 mL/min/1.73m2 Severely decreased 15 - 29 mL/min/1.73m2 Kidney Failure < 15 mL/min/1.73m2 *Relative to young adult level Estimated glomerular [...] last reviewed 2021. Blood 05/28/2024 3:36 AM MARKET RISK ANALYST 05/28/2024 4:30 AM MARKET RISK ANALYST us Leo Manzano MD LAB BLOOD ORDERABLES Final [facility] [place] [address] * (ABNORMAL) Lidocaine level (05/28/2024 3:36 AM MARKET RISK ANALYST) [facility] Lidocaine (Xylocaine) <1.0(L) 1.5 - 5.0 mcg/mL Blood 05/28/2024 3:36 AM MARKET RISK ANALYST 05/28/2024 4:30 AM MARKET RISK ANALYST us Gonzalez Lamar DO LAB BLOOD ORDERABLES Fin al Result Performing Organization Address City/[facility]/ZIP Co de Phone Number [facility] [place] [address] * (ABNORMAL) CBC without differential (05/28/2024 3:36 AM MARKET RISK ANALYST) [facility] WBC 5.0 3.8 - 9.9 K/cumm Hgb 11.7(L) 13.0 - 17.5 g/dL [facility] Hct 35.3(L) 38.9 - 50.3 % [facility] Plt 240 150 - 400 K/cumm [facility] MPV 9.5 9.1 - 12.3 fL [facility] RBC 3.82(L) 4.30 - 5.80 M/cumm [facility] MCV 92.4 81.3 - 96.4 fL [facility] MCH 30.6 27.1 - 33.3 pg [facility] MCHC 33.1 32.3 - 35.7 g/dL [facility] RDW CV 13.3 11.1 - 14.9 % [facility] RDW SD 45.1 35.7 - 48.1 fL [facility] NRBC abs 0.00 0.00 - 0.01 K/cumm [facility] Blood 05/28/2024 3:36 AM MARKET RISK ANALYST 05/28/2024 4:32 AM MARKET RISK ANALYST us Leo Manzano MD LAB BLOOD ORDERABLES Final Result Performing Organization Address City/[facility]/ZIP Co de Phone Number [facility] [place] [address] * Basic metabolic panel (05/28/2024 3:36 AM MARKET RISK ANALYST) Pathologist [facility] Sodium 140 135 - 145 mmol/L Potassium, pl 4.0 3.3 - 4.9 mmol/L [facility] Chloride 103 97 - 110 mmol/L [facility] CO2 25 22 - 32 mmol/L [facility] Anion gap 12 2 - 15 mmol/L [facility] BUN 18 6 - 25 mg/dL [facility] Creatinine 1.10 0.80 - 1.30 mg/dL [facility] Glucose 85 70 - 199 mg/dL [facility] Comment: Interpretive Data Fasting glucose >/= 126 mg/dl is diagnostic for diabetes. Fasting is defined as no caloric intake [...] 2022. Calcium 9.1 8.5 - 10.3 mg/dL [facility] Blood 05/28/2024 3:36 AM MARKET RISK ANALYST 05/28/2024 4:30 AM MARKET RISK ANALYST Leo Manzano MD LAB BLOOD ORDERABLES Final Result [facility] [place] [address] * Lidocaine level (05/27/2024 3:29 AM MARKET RISK ANALYST) [facility] Lidocaine (Xylocaine) 1.5 1.5 - 5.0 mcg/mL Blood 05/27/2024 3:29 AM MARKET RISK ANALYST 05/27/2024 4:21 AM MARKET RISK ANALYST Gonzalez Lamar DO LAB BLOOD ORDERABLES Fin al Result Performing Organization Address City/[facility]/ZIP Co de Phone Number [facility] [place] [address] * Type and screen (05/27/2024 3:29 AM MARKET RISK ANALYST) Ellen, indirect Negative ABO Rh A Positive [facility] Blood 05/27/2024 3:29 AM MARKET RISK ANALYST 05/27/2024 4:33 AM MARKET RISK ANALYST Narrative [facility] - 05/27/2024 5:33 AM MARKET RISK ANALYST Has the patient had Daratumumab or Isatuximab in the past 6 months?->Unknown Moriah Amin CLINICAL ASSOCIATE LAB BLOOD BANK TEST ORDERABLE S Final Result Performing Organization Address [facility] Co de Phone Number [facility] [place] [address] * eGFR (05/26/2024 4:38 AM MARKET RISK ANALYST) eGFR 86 >=60 mL/min/1. 73 m2 Comment: Interpretive Data Reference Interval Normal >/= 90 mL/min/1.73m2 Mildly decreased* 60 - 89 mL/min/1.73m2 Mildly to moderately decreased 45 - 59 mL/min/1.73m2 Moderately to severely decreased 30 - 44 mL/min/1.73m2 Severely decreased 15 - 29 mL/min/1.73m2 Kidney Failure < 15 mL/min/1.73m2 *Relative to young adult level Estimated glomerular [...] last reviewed 2021. Blood 05/26/2024 4:38 AM MARKET RISK ANALYST 05/26/2024 5:46 AM MARKET RISK ANALYST Moriah Amin CLINICAL ASSOCIATE LAB BLOOD ORDERABLES Final Re sult [facility] Department [place] [address] * Lidocaine level (05/26/2024 4:38 AM MARKET RISK ANALYST) [facility] Lidocaine (Xylocaine) 1.8 1.5 - 5.0 mcg/mL Blood 05/26/2024 4:38 AM MARKET RISK ANALYST 05/26/2024 5:46 AM MARKET RISK ANALYST Gonzalez Lamar DO LAB BLOOD ORDERABLES Fin al Result Performing Organization Address [facility] Co de Phone Number [facility] [place] [address] * (ABNORMAL) CBC without differential (05/26/2024 4:38 AM MARKET RISK ANALYST) [facility] WBC 5.5 3.8 - 9.9 K/cumm Hgb 11.5(L) 13.0 - 17.5 g/dL [facility] Hct 34.0(L) 38.9 - 50.3 % [facility] Plt 222 150 - 400 K/cumm [facility] MPV 9.7 9.1 - 12.3 fL [facility] RBC 3.67(L) 4.30 - 5.80 M/cumm [facility] MCV 92.6 81.3 - 96.4 fL [facility] MCH 31.3 27.1 - 33.3 pg [facility] MCHC 33.8 32.3 - 35.7 g/dL [facility] RDW CV 13.3 11.1 - 14.9 % [facility] RDW SD 45.5 35.7 - 48.1 fL [facility] NRBC abs 0.00 0.00 - 0.01 K/cumm [facility] Blood 05/26/2024 4:38 AM MARKET RISK ANALYST 05/26/2024 5:46 AM MARKET RISK ANALYST Moriah Amin CLINICAL ASSOCIATE LAB BLOOD ORDERABLES Final Re sult Performing Organization Address City/[facility] Co de Phone Number [facility] Department [place] [address] * Basic metabolic panel (05/26/2024 4:38 AM MARKET RISK ANALYST) Pathologist [facility] Sodium 141 135 - 145 mmol/L Potassium, pl 3.9 3.3 - 4.9 mmol/L [facility] Chloride 107 97 - 110 mmol/L [facility] CO2 26 22 - 32 mmol/L [facility] Anion gap 8 2 - 15 mmol/L [facility] BUN 15 6 - 25 mg/dL [facility] Creatinine 1.16 0.80 - 1.30 mg/dL [facility] Glucose 78 70 - 199 mg/dL [facility] Comment: Interpretive Data Fasting glucose >/= 126 mg/dl is diagnostic for diabetes. Fasting is defined as no caloric intake [...] 2022. Calcium 8.6 8.5 - 10.3 mg/dL [facility] Blood 05/26/2024 4:38 AM MARKET RISK ANALYST 05/26/2024 5:46 AM MARKET RISK ANALYST Moriah Amin CLINICAL ASSOCIATE LAB BLOOD ORDERABLES Final Re sult Performing Organization Address [facility]/ZIP Co de Phone Number [facility] Department [place] [address] * eGFR (05/25/2024 4:20 PM MARKET RISK ANALYST) Pathologist [facility] eGFR >90 >=60 mL/min/1. 73 m2 Comment: Interpretive Data Reference Interval Normal >/= 90 mL/min/1.73m2 Mildly decreased* 60 - 89 mL/min/1.73m2 Mildly to moderately decreased 45 - 59 mL/min/1.73m2 Moderately to severely decreased 30 - 44 mL/min/1.73m2 Severely decreased 15 - 29 mL/min/1.73m2 Kidney Failure < 15 mL/min/1.73m2 *Relative to young adult level Estimated glomerular [...] last reviewed 2021. Blood 05/25/2024 4:20 PM MARKET RISK ANALYST 05/25/2024 4:33 PM MARKET RISK ANALYST Moriah Amin NP LAB BLOOD ORDERABLES Final Re sult Performing Organization Address City/[facility] Co de Phone Number [facility] [place] [address] * Lidocaine level (05/25/2024 4:20 PM MARKET RISK ANALYST) [facility] Lidocaine (Xylocaine) 2.1 1.5 - 5.0 mcg/mL Blood 05/25/2024 4:20 PM MARKET RISK ANALYST 05/25/2024 4:33 PM MARKET RISK ANALYST Narrative [facility] - 05/25/2024 5:02 PM MARKET RISK ANALYST Draw 24 hours after infusion started. Moriah Amin CLINICAL ASSOCIATE LAB BLOOD ORDERABLES Final Re sult [facility] [place] [address] * (ABNORMAL) CBC without differential (05/25/2024 4:20 PM MARKET RISK ANALYST) [facility] WBC 6.1 3.8 - 9.9 K/cumm Hgb 12.1(L) 13.0 - 17.5 g/dL [facility] Hct 36.3(L) 38.9 - 50.3 % [facility] Plt 246 150 - 400 K/cumm [facility] MPV 9.6 9.1 - 12.3 fL [facility] RBC 4.03(L) 4.30 - 5.80 M/cumm [facility] MCV 90.1 81.3 - 96.4 fL [facility] MCH 30.0 27.1 - 33.3 pg [facility] MCHC 33.3 32.3 - 35.7 g/dL [facility] RDW CV 13.3 11.1 - 14.9 % [facility] RDW SD 44.0 35.7 - 48.1 fL [facility] NRBC abs 0.00 0.00 - 0.01 K/cumm [facility] Blood 05/25/2024 4:20 PM MARKET RISK ANALYST 05/25/2024 4:33 PM MARKET RISK ANALYST Moriah Amin NP LAB BLOOD ORDERABLES Final Re sult [facility] Department [place] [address] * Basic metabolic panel (05/25/2024 4:20 PM MARKET RISK ANALYST) [facility] Sodium 140 135 - 145 mmol/L Potassium, pl 3.9 3.3 - 4.9 mmol/L [facility] Chloride 106 97 - 110 mmol/L [facility] CO2 25 22 - 32 mmol/L [facility] Anion gap 9 2 - 15 mmol/L [facility] BUN 10 6 - 25 mg/dL [facility] Creatinine 0.92 0.80 - 1.30 mg/dL [facility] Glucose 98 70 - 199 mg/dL [facility] Comment: Interpretive Data Fasting glucose >/= 126 mg/dl is diagnostic for diabetes. Fasting is defined as no caloric intake [...] Calcium 8.9 8.5 - 10.3 mg/dL [facility] Blood 05/25/2024 4:20 PM MARKET RISK ANALYST 05/25/2024 4:33 PM MARKET RISK ANALYST Moriah Amin CLINICAL ASSOCIATE LAB BLOOD ORDERABLES Final Re sult [facility] Department [place] [address] * Critical Care (05/25/2024 8:12 AM MARKET RISK ANALYST) Narrative Rafiq Rodriguez MD - 05/25/2024 8:12 AM MARKET RISK ANALYST Moriah Amin NP 05/25/2024 3:35 PM Critical Care Performed by: Moriah Amin NP Authorized by: Moriah Amin NP CRITICAL CARE: Team: SICU BLUE Shift: AM Level of Billing: Subsequent Hospital [...] plan with the patient's team and other medical/talent development consultant staff. This time was in addition to and separate from care provided by other practitioners on this day of service. us Moriah Amin NP IN CLINIC/BEDSIDE ORDERABLES Final Result * POCT glucose (05/25/2024 4:16 AM MARKET RISK ANALYST) Glucose, POC 117 70 - 199 mg/dL Blood 05/25/2024 4:16 AM MARKET RISK ANALYST 05/25/2024 4:16 AM MARKET RISK ANALYST Gonzalez Pinaaamir DO LAB POCT ORDERABLES - DE VICE Final Result Performing Organization Address [facility] Co [place] Phone Number [facility] [place] [address] * POCT glucose (05/24/2024 11:36 PM MARKET RISK ANALYST) Glucose, POC 116 70 - 199 mg/dL Blood 05/24/2024 11:3 6 PM MARKET RISK ANALYST 05/24/2024 11:36 PM MARKET RISK ANALYST Gonzalez Lamar DO LAB POCT ORDERABLES - DE VICE Final Result Performing Organization Address [facility] [place] [address] * POCT glucose (05/24/2024 8:50 PM MARKET RISK ANALYST) Glucose, POC 123 70 - 199 mg/dL Blood 05/24/2024 8:50 PM MARKET RISK ANALYST 05/24/2024 8:50 PM MARKET RISK ANALYST Gonzalez Lamar DO LAB POCT ORDERABLES - DE VICE Final Result Performing Organization Address [facility] [place] [address] * Critical Care (05/24/2024 8:47 PM MARKET RISK ANALYST) Narrative Ag Lemos MD - 05/24/2024 8:47 PM MARKET RISK ANALYST Ag Lemos MD 05/25/2024 6:53 AM Critical Care Performed by: Ag Lemos MD Authorized by: Ag Lemos MD CRITICAL CARE: Team: SICU BLUE Shift: PM Level of Billing: Critical Care My time spent with this patient was 30 minutes: Critical Provider Statement: I have seen and examined the patient on this day of service. I have reviewed and confirmed the history, physical exam, laboratory and radiologic data as documented in the signed ICU note. I have reviewed and discussed my treatment plan with the ICU team and other medical/talent development consultant staff, making frequent assessments and decisions [...] the following conditions: Acute pain/acute postoperative pain Type B aortic dissection This time was spent by me doing the following: Acute pain control Initiation/active titration of vasoactive medications I spent time reviewing and interpreting data from bedside monitors, laboratory results, and imaging, I spent time documenting in the medical record and I spent time discussing the management of this critically ill patient with consultants and the medical staff us Ag Lemos MD IN CLINIC/BEDSIDE SHAUNA LOPEZ Final Result * eGFR (05/24/2024 5:43 PM MARKET RISK ANALYST) Pathologist [facility] eGFR >90 >=60 mL/min/1. 73 m2 Comment: Interpretive Data Reference Interval Normal >/= 90 mL/min/1.73m2 Mildly decreased* 60 - 89 mL/min/1.73m2 Mildly to moderately decreased 45 - 59 mL/min/1.73m2 Moderately to severely decreased 30 - 44 mL/min/1.73m2 Severely decreased 15 - 29 mL/min/1.73m2 Kidney Failure < 15 mL/min/1.73m2 *Relative to young adult level Estimated glomerular [...] last reviewed 2021. Blood 05/24/2024 5:43 PM MARKET RISK ANALYST 05/24/2024 6:00 PM MARKET RISK ANALYST us Gonzalez Lamar DO LAB BLOOD ORDERABLES Fin al Result [facility] Department [place] [address] * Differential, auto (05/24/2024 5:43 PM MARKET RISK ANALYST) Neutrophil abs 4.9 1.5 - 6.5 K/cumm Imm gran abs 0.0 0.0 - 0.1 K/cumm [facility] Lymphocyte abs 1.4 0.8 - 3.3 K/cumm [facility] Monocyte abs 0.8 0.2 - 0.8 K/cumm [facility] Eosinophil abs 0.1 0.0 - 0.5 K/cumm [facility] Basophil abs 0.1 0.0 - 0.1 K/cumm [facility] Neutrophil pct 67.4 % [facility] Comment: Interpretive Data Percent cell count reference ranges are not reported, since discordance with absolute values may lead to misinterpretation of CBC data. Current Interpretive Data was last revised on 2017. Imm gran pct 0.4 % [facility] Comment: Interpretive Data Percent cell count reference ranges are not reported, since discordance with absolute values may lead to misinterpretation of CBC data. Current Interpretive Data was last revised on 2017. Lymphocyte pct 19.4 % [facility] Comment: Interpretive Data Percent cell count reference ranges are not reported, since discordance with absolute values may lead to misinterpretation of CBC data. Current Interpretive Data was last revised on 2017. Monocyte pct 11.3 % [facility] Comment: Interpretive Data Percent cell count reference ranges are not reported, since discordance with absolute values may lead to misinterpretation of CBC data. Current Interpretive Data was last revised on 2017. Eosinophil pct 0.8 % [facility] Comment: Interpretive Data Percent cell count reference ranges are not reported, since discordance with absolute values may lead to misinterpretation of CBC data. Current Interpretive Data was last revised on 2017. Basophil pct 0.7 % [facility] Comment: Interpretive Data Percent cell count reference ranges are not reported, since discordance with absolute values may lead to misinterpretation of CBC data. Current Interpretive Data was last revised on 2017. Blood 05/24/2024 5:43 PM MARKET RISK ANALYST 05/24/2024 6:00 PM MARKET RISK ANALYST Gonzalez Lamar DO LAB BLOOD ORDERABLES Fin al Result Performing Organization Address City/[facility]/ZIP Co de Phone Number [facility] [place] [address] * (ABNORMAL) CBC with auto differential (05/24/2024 5:43 PM MARKET RISK ANALYST) [facility] WBC 7.2 3.8 - 9.9 K/cumm Hgb 11.5(L) 13.0 - 17.5 g/dL [facility] Hct 34.7(L) 38.9 - 50.3 % [facility] Plt 233 150 - 400 K/cumm [facility] MPV 9.2 9.1 - 12.3 fL [facility] RBC 3.77(L) 4.30 - 5.80 M/cumm [facility] MCV 92.0 81.3 - 96.4 fL [facility] MCH 30.5 27.1 - 33.3 pg [facility] MCHC 33.1 32.3 - 35.7 g/dL [facility] RDW CV 13.0 11.1 - 14.9 % [facility] RDW SD 43.8 35.7 - 48.1 fL [facility] NRBC abs 0.00 0.00 - 0.01 K/cumm [facility] Blood 05/24/2024 5:43 PM MARKET RISK ANALYST 05/24/2024 6:00 PM MARKET RISK ANALYST Gonzalez Lamar DO LAB BLOOD ORDERABLES Fin al Result Performing Organization Address City/[facility] Co de Phone Number [facility] [place] [address] * Lactate, whole blood (05/24/2024 5:43 PM MARKET RISK ANALYST) [facility] Lactate, bld 0.7 0.7 - 2.0 mmol/L Blood 05/24/2024 5:43 PM MARKET RISK ANALYST 05/24/2024 5:50 PM MARKET RISK ANALYST Moriah Amin CLINICAL ASSOCIATE LAB BLOOD ORDERABLES Final Re sult Performing Organization Address [facility] Co de Phone Number [facility] [place] [address] * Phosphorus (05/24/2024 5:43 PM MARKET RISK ANALYST) [facility] Phosphorus, pl 2.7 2.3 - 4.5 mg/dL Blood 05/24/2024 5:43 PM MARKET RISK ANALYST 05/24/2024 6:00 PM MARKET RISK ANALYST Gonzalez Lamar DO LAB BLOOD ORDERABLES Fin al Result Performing Organization Address [facility] de Phone Number [facility] [place] [address] * Magnesium (05/24/2024 5:43 PM MARKET RISK ANALYST) [facility] Magnesium 2.0 1.4 - 2.5 mg/dL Blood 05/24/2024 5:43 PM MARKET RISK ANALYST 05/24/2024 6:00 PM MARKET RISK ANALYST Gonzalez Lamar DO LAB BLOOD ORDERABLES Fin al Result Performing Organization Address [facility] de Phone Number [facility] [place] [address] * Amylase (05/24/2024 5:43 PM MARKET RISK ANALYST) [facility] Amylase 35 30 - 99 Units/L Blood 05/24/2024 5:43 PM MARKET RISK ANALYST 05/24/2024 6:00 PM MARKET RISK ANALYST Moriah Amin CLINICAL ASSOCIATE LAB BLOOD ORDERABLES Final Re sult [facility] Department [place] [address] * Comprehensive metabolic panel (05/24/2024 5:43 PM MARKET RISK ANALYST) Sodium 140 135 - 145 mmol/L Potassium, pl 3.9 3.3 - 4.9 mmol/L [facility] Chloride 105 97 - 110 mmol/L [facility] CO2 25 22 - 32 mmol/L [facility] Anion gap 10 2 - 15 mmol/L [facility] BUN 6 6 - 25 mg/dL [facility] Creatinine 0.88 0.80 - 1.30 mg/dL [facility] Glucose 86 70 - 199 mg/dL [facility] Comment: Interpretive Data Fasting glucose >/= 126 mg/dl is diagnostic for diabetes. Fasting is defined as no caloric intake [...] 2022. Calcium 8.9 8.5 - 10.3 mg/dL [facility] Bilirubin, total 0.8 0.1 - 1.2 mg/dL [facility] Protein, pl 6.7 6.5 - 8.5 g/dL [facility] Albumin 4.1 3.5 - 5.0 g/dL [facility] Alk phos 81 40 - 130 Units/L [facility] ALT 15 7 - 55 Units/L [facility] AST 17 10 - 50 Units/L [facility] Blood 05/24/2024 5:43 PM MARKET RISK ANALYST 05/24/2024 6:00 PM MARKET RISK ANALYST Gonzalez Lamar DO LAB BLOOD ORDERABLES Fin al Result [facility] [place] [address] * POCT glucose (05/24/2024 3:52 PM MARKET RISK ANALYST) Glucose, POC 84 70 - 199 mg/dL Blood 05/24/2024 3:52 PM MARKET RISK ANALYST 05/24/2024 3:52 PM MARKET RISK ANALYST us Gonzalez Lamar DO LAB POCT ORDERABLES - DE VICE Final Result Performing Organization Address [facility] [place] [address] * POCT glucose (05/24/2024 11:06 AM MARKET RISK ANALYST) Glucose, POC 138 70 - 199 mg/dL Blood 05/24/2024 11:0 6 AM MARKET RISK ANALYST 05/24/2024 11:06 AM MARKET RISK ANALYST us Gonzalez Lamar DO LAB POCT ORDERABLES - DE VICE Final Result Performing Organization Address [facility] Co de Phone Number [facility] [place] [address] * POCT glucose (05/24/2024 7:46 AM MARKET RISK ANALYST) Glucose, POC 86 70 - 199 mg/dL Blood 05/24/2024 7:46 AM MARKET RISK ANALYST 05/24/2024 7:46 AM MARKET RISK ANALYST us Gonzalez Lamar DO LAB POCT ORDERABLES - DE VICE Final Result Performing Organization Address [facility] [place] [address] * Critical Care (05/24/2024 6:15 AM MARKET RISK ANALYST) Narrative Rafiq Rodriguez MD - 05/24/2024 6:15 AM MARKET RISK ANALYST Moriah Amin NP 05/24/2024 5:42 PM Critical Care Performed by: Moriah Amin NP Authorized by: Moriah Amin NP CRITICAL CARE: Team: SICU BLUE Shift: AM Level of Billing: Critical Care [...] plan with the ICU team and other medical/talent development consultant staff, making frequent assessments and decisions [...] or life-threatening deterioration of the following conditions: Moriah Amin CLINICAL ASSOCIATE IN CLINIC/BEDSIDE ORDERABLES Final Result * POCT glucose (05/24/2024 3:23 AM MARKET RISK ANALYST) Glucose, POC 85 70 - 199 mg/dL Blood 05/24/2024 3:23 AM MARKET RISK ANALYST 05/24/2024 3:23 AM MARKET RISK ANALYST Gonzalez Lamar DO LAB POCT ORDERABLES - DE VICE Final Result Performing Organization Address [facility] de Phone Number [facility] Department [place] [address] * POCT glucose (05/23/2024 11:04 PM MARKET RISK ANALYST) Glucose, POC 84 70 - 199 mg/dL Blood 05/23/2024 11:0 4 PM MARKET RISK ANALYST 05/23/2024 11:04 PM MARKET RISK ANALYST Gonzalez Lamar DO LAB POCT ORDERABLES - DE VICE Final Result Performing Organization Address [facility] Co de Phone Number [facility] [place] [address] * Lactate (05/23/2024 8:33 PM MARKET RISK ANALYST) Lactate 0.7 0.7 - 2.0 mmol/L Blood 05/23/2024 8:33 PM MARKET RISK ANALYST 05/23/2024 9:39 PM MARKET RISK ANALYST Gonzalez Lamar DO LAB BLOOD ORDERABLES Fin al Result Performing Organization Address City/[facility]/ZIP Co de Phone Number [facility] [place] [address] * eGFR (05/23/2024 8:33 PM MARKET RISK ANALYST) eGFR >90 >=60 mL/min/1. 73 m2 Comment: Interpretive Data Reference Interval Normal >/= 90 mL/min/1.73m2 Mildly decreased* 60 - 89 mL/min/1.73m2 Mildly to moderately decreased 45 - 59 mL/min/1.73m2 Moderately to severely decreased 30 - 44 mL/min/1.73m2 Severely decreased 15 - 29 mL/min/1.73m2 Kidney Failure < 15 mL/min/1.73m2 *Relative to young adult level Estimated glomerular [...] last reviewed 2021. Blood 05/23/2024 8:33 PM MARKET RISK ANALYST 05/23/2024 9:17 PM MARKET RISK ANALYST us Gonzalez Lamar DO LAB BLOOD ORDERABLES Fin al Result [facility] [place] [address] * Differential, auto (05/23/2024 8:33 PM MARKET RISK ANALYST) Neutrophil abs 3.9 1.5 - 6.5 K/cumm Imm gran abs 0.0 0.0 - 0.1 K/cumm [facility] Lymphocyte abs 1.9 0.8 - 3.3 K/cumm [facility] Monocyte abs 0.8 0.2 - 0.8 K/cumm [facility] Eosinophil abs 0.0 0.0 - 0.5 K/cumm [facility] Basophil abs 0.0 0.0 - 0.1 K/cumm [facility] Neutrophil pct 58.1 % [facility] Comment: Interpretive Data Percent cell count reference ranges are not reported, since discordance with absolute values may lead to misinterpretation of CBC data. Current Interpretive Data was last revised on 2017. Imm gran pct 0.4 % [facility] Comment: Interpretive Data Percent cell count reference ranges are not reported, since discordance with absolute values may lead to misinterpretation of CBC data. Current Interpretive Data was last revised on 2017. Lymphocyte pct 28.1 % [facility] Comment: Interpretive Data Percent cell count reference ranges are not reported, since discordance with absolute values may lead to misinterpretation of CBC data. Current Interpretive Data was last revised on 2017. Monocyte pct 12.4 % [facility] Comment: Interpretive Data Percent cell count reference ranges are not reported, since discordance with absolute values may lead to misinterpretation of CBC data. Current Interpretive Data was last revised on 2017. Eosinophil pct 0.4 % [facility] Comment: Interpretive Data Percent cell count reference ranges are not reported, since discordance with absolute values may lead to misinterpretation of CBC data. Current Interpretive Data was last revised on 2017. Basophil pct 0.6 % [facility] Comment: Interpretive Data Percent cell count reference ranges are not reported, since discordance with absolute values may lead to misinterpretation of CBC data. Current Interpretive Data was last revised on 2017. Blood 05/23/2024 8:33 PM MARKET RISK ANALYST 05/23/2024 9:29 PM MARKET RISK ANALYST Gonzalez Frederick Willard DO LAB BLOOD ORDERABLES Fin al Result Performing Organization Address City/[facility]/ZIP Co de Phone Number [facility] [place] [address] * (ABNORMAL) Calcium, ionized (05/23/2024 8:33 PM MARKET RISK ANALYST) [facility] Calcium, Ionized 4.48(L) 4.50 - 5.10 mg/dL Blood 05/23/2024 8:33 PM MARKET RISK ANALYST 05/23/2024 9:17 PM MARKET RISK ANALYST Gonzalez Lamar DO LAB BLOOD ORDERABLES Fin al Result Performing Organization Address [facility] de Phone Number [facility] [place] [address] * (ABNORMAL) CBC with auto differential (05/23/2024 8:33 PM MARKET RISK ANALYST) [facility] WBC 6.8 3.8 - 9.9 K/cumm Hgb 11.4(L) 13.0 - 17.5 g/dL [facility] Hct 33.7(L) 38.9 - 50.3 % [facility] Plt 237 150 - 400 K/cumm [facility] MPV 9.5 9.1 - 12.3 fL [facility] RBC 3.80(L) 4.30 - 5.80 M/cumm [facility] MCV 88.7 81.3 - 96.4 fL [facility] MCH 30.0 27.1 - 33.3 pg [facility] MCHC 33.8 32.3 - 35.7 g/dL [facility] RDW CV 13.0 11.1 - 14.9 % [facility] RDW SD 42.2 35.7 - 48.1 fL [facility] NRBC abs 0.00 0.00 - 0.01 K/cumm [facility] Blood 05/23/2024 8:33 PM MARKET RISK ANALYST 05/23/2024 9:29 PM MARKET RISK ANALYST Gonzalez Lamar DO LAB BLOOD ORDERABLES Fin al Result Performing Organization Address [facility] de Phone Number [facility] [place] [address] * aPTT (05/23/2024 8:33 PM MARKET RISK ANALYST) aPTT 31 28 - 38 sec Comment: Interpretive Data Heparin therapeutic range: 66.0 - 100.0 seconds. Range based on correlation with therapeutic heparin activity range of 0.3 - 0.7 Units/mL. Current interpretive data was last revised on 2023. Blood 05/23/2024 8:33 PM MARKET RISK ANALYST 05/23/2024 9:20 PM MARKET RISK ANALYST Gonzalez Lamar DO LAB BLOOD ORDERABLES Fin al Result Performing Organization Address [facility] de Phone Number [facility] [place] [address] * (ABNORMAL) Protime-INR (05/23/2024 8:33 PM MARKET RISK ANALYST) PT 14.6(H) 9.7 - 13.0 sec INR 1.34(H) 0.90 - 1.20 [facility] Comment: Interpretive data Oral anticoagulant therapeutic ranges: Venous thromboembolism prophylaxis or treatment: 2.0-3.0 CARDIOLOGY Standard range: 2.0-3.0 High-intensity range: 2.5-3.5 Refer to indication-specific guidelines for appropriate target ranges for prosthetic heart valve replacement. Current interpretive data was last revised on 2019. Blood 05/23/2024 8:33 PM MARKET RISK ANALYST 05/23/2024 9:20 PM MARKET RISK ANALYST Gonzalez Lamar DO LAB BLOOD ORDERABLES Fin al Result Performing Organization Address [facility] de Phone Number [facility] [place] [address] * Type and screen (05/23/2024 8:33 PM MARKET RISK ANALYST) Ellen, indirect Negative ABO Rh A Positive [facility] Blood 05/23/2024 8:33 PM MARKET RISK ANALYST 05/23/2024 9:31 PM MARKET RISK ANALYST Narrative [facility] - 05/23/2024 10:36 PM MARKET RISK ANALYST Has the patient had Daratumumab or Isatuximab in the past 6 months?->Unknown Moriah Amin NP LAB BLOOD BANK TEST [place] [address] * Phosphorus (05/23/2024 8:33 PM MARKET RISK ANALYST) Pathologist [facility] Phosphorus, pl 2.5 2.3 - 4.5 mg/dL Blood 05/23/2024 8:33 PM MARKET RISK ANALYST 05/23/2024 9:17 PM MARKET RISK ANALYST Gonzalez Lamar DO LAB BLOOD ORDERABLES Fin al Result Performing Organization Address City/[facility] [place] [address] * Magnesium (05/23/2024 8:33 PM MARKET RISK ANALYST) Pathologist [facility] Magnesium 2.0 1.4 - 2.5 mg/dL Blood 05/23/2024 8:33 PM MARKET RISK ANALYST 05/23/2024 9:17 PM MARKET RISK ANALYST Gonzalez Lamar DO LAB BLOOD ORDERABLES Fin al Result [facility] [place] [address] * Creatine kinase (CK), total (05/23/2024 8:33 PM MARKET RISK ANALYST) CK 159 40 - 300 Units/L Blood 05/23/2024 8:33 PM MARKET RISK ANALYST 05/23/2024 9:17 PM MARKET RISK ANALYST us Gonzalez Lamar DO LAB BLOOD ORDERABLES Fin al Result [facility] Department [place] [address] * (ABNORMAL) Comprehensive metabolic panel (05/23/2024 8:33 PM MARKET RISK ANALYST) Sodium 141 135 - 145 mmol/L Potassium, pl 3.2(L) 3.3 - 4.9 mmol/L [facility] Chloride 105 97 - 110 mmol/L [facility] CO2 25 22 - 32 mmol/L [facility] Anion gap 11 2 - 15 mmol/L [facility] BUN 11 6 - 25 mg/dL [facility] Creatinine 1.03 0.80 - 1.30 mg/dL [facility] Glucose 84 70 - 199 mg/dL [facility] Comment: Interpretive Data Fasting glucose >/= 126 mg/dl is diagnostic for diabetes. Fasting is defined as no caloric intake [...] 2022. Calcium 9.0 8.5 - 10.3 mg/dL [facility] Bilirubin, total 1.2 0.1 - 1.2 mg/dL [facility] Protein, pl 7.0 6.5 - 8.5 g/dL [facility] Albumin 4.2 3.5 - 5.0 g/dL [facility] Alk phos 83 40 - 130 Units/L [facility] ALT 15 7 - 55 Units/L [facility] AST 16 10 - 50 Units/L [facility] Blood 05/23/2024 8:33 PM MARKET RISK ANALYST 05/23/2024 9:17 PM MARKET RISK ANALYST Gonzalez Otoniel Lamar DO LAB BLOOD ORDERABLES Fin al Result Performing Organization Address City/[facility] Co de Phone Number [facility] Department [place] [address] * CT Body Outside Reference (05/23/2024 8:22 PM MARKET RISK ANALYST) Impressions [facility] - 05/23/2024 8:22 PM MARKET RISK ANALYST These images are for Reference purposes only and have not been reviewed by [facility]iology. There will be no report generated by a [facility] Radiologist. Narrative [facility] - 05/23/2024 8:22 PM MARKET RISK ANALYST EXAMINATION: Images For Reference Purposes Only Gadiel Ireland MD IMG CT PROCEDURES Final Result Performing Organization Address [facility] Co de Phone Number [email or web address] * CT Body Outside Consult (05/23/2024 8:18 PM MARKET RISK ANALYST) Anatomical Region Laterality Modality Body N/A Computed Tomogra phy 05/24/2024 8:05 AM MARKET RISK ANALYST Impressions 05/24/2024 8:05 AM MARKET RISK ANALYST 1. Unchanged thoracoabdominal aortic dissection status post [...] images may or may not represent the crow source data set and thus may contain changes that may lower the accuracy of this second-opinion interpretation. Electronically signed by: Shahrzad Zimmerman M.D. Narrative 05/24/2024 8:05 AM MARKET RISK ANALYST EXAMINATION: RADIOLOGY CONSULTATION ON OUTSIDE IMAGING STUDY STUDY INITIALLY PERFORMED: 05/23/2024 at [place]. TYPE OF STUDY: Multiple CT images of [...] IMAGING STUDY STUDY INITIALLY PERFORMED: 05/23/2024 at [place]. TYPE OF STUDY: Multiple CT images of [...] images may or may not represent the crow source data set and thus may contain changes that may lower the accuracy of this second-opinion interpretation. Electronically signed by: Shahrzad Zimmerman M.D. Gadiel Ireland MD IM CT PROCEDURES Final Result * POCT glucose (05/23/2024 7:47 PM MARKET RISK ANALYST) Pathologist [facility] Glucose, POC 80 70 - 199 mg/dL Blood 05/23/2024 7:47 PM MARKET RISK ANALYST 05/23/2024 7:47 PM MARKET RISK ANALYST [place] Silvanaaamir LAB POCT ORDERABLES - DE VICE Final Result [facility] [place] [address] * POCT Rapid HIV Antibody Community Screening-[place] Eligible (05/21/2024 7:35 PM MARKET RISK ANALYST) [facility] Rapid HIV, POC Negative Negative Lot Number [id number] QC Control Line Acceptable Blood 05/21/2024 7:35 PM MARKET RISK ANALYST Marcus Amaya MD POINT OF CARE TEST ORD ERABLES Final Result * (ABNORMAL) Oxycodone Confirmation, Urine (05/21/2024 5:34 PM MARKET RISK ANALYST) [facility] Oxycodone Conf, Ur Confirmed Positive(A) CutOff [...] Performance characteristics were determined by the [facility] in a manner consistent with CLIA requirement and has not been cleared or approved by the U.S. Food and Drug Administration. Current interpretive data was last revised 2020. Urine 05/21/2024 5:34 PM MARKET RISK ANALYST 05/21/2024 5:46 PM MARKET RISK ANALYST Marcus Amaya MD LAB URINE ORDERABLES F inal Result [facility] Department [place] [address] * (ABNORMAL) Fentanyl Confirmation, Urine (05/21/2024 5:34 PM MARKET RISK ANALYST) Fentanyl Conf, Ur Confirmed Positive(A) Cutoff 0.3ng/mL Acetylfentanyl Conf, Ur Does Not Confirm Cutoff 1 ng/mL [facility] Acrylfentanyl Conf, Ur Does Not Confirm Cutoff 1 ng/mL [facility] Furanylfentanyl Conf, Ur Does Not Confirm Cutoff 1 ng/mL [facility] Fentanyl Metabolite (Norfentanyl) Conf, Ur Confirmed [...] Performance characteristics were determined by the [facility] in a manner consistent with CLIA requirement and has not been cleared or approved by the U.S. Food and Drug Administration. Current interpretive data was last revised 2020. Urine 05/21/2024 5:34 PM MARKET RISK ANALYST 05/21/2024 5:46 PM MARKET RISK ANALYST Marcus Amaya MD LAB URINE ORDERABLES F inal Result [facility] Department [place] [address] * (ABNORMAL) Drugs of Abuse Screen, Urine with Reflex Confirmation (05/21/2024 5:34 PM MARKET RISK ANALYST) Amphetamine, ur Screen Positive, presumptive (A) CutOff 500ng/mL Comment: Interpretive Data - Amphetamines: Samples containing greater than 500 ng/mL d-methamphetamine or other cross-reacting amphetamine compounds are reported as positive. Amphetamine immunoassays are subject to significant false positive rates due to cross-reactivity of non-amphetamine drugs. Confirmatory testing required for definitive results. Current Interpretive Data was last reviewed 2022. Barbiturates, ur Not Detected CutOff 200ng/mL [facility] Comment: Interpretive Data - Barbiturates: Samples containing greater than 200 ng/mL secobarbital or other cross-reacting barbiturate compounds are reported as positive. False positive and false negative results are possible. Confirmatory testing required for definitive results. Current Interpretive Data was last reviewed 2022. Benzodiazepines, ur Screen Positive, presumptive (A) CutOff 100ng/mL [facility] Comment: Interpretive Data - Benzodiazepines: Samples containing greater than 100 ng/mL nordiazepam or other cross-reacting compounds are reported as positive. False positive and false negative results are possible. Confirmatory testing required for definitive results. Current Interpretive Data was last reviewed 2022. Cannabinoids, ur Screen Positive, presumptive (A) CutOff 50 ng/mL [facility] Comment: Interpretive Data - Cannabinoids: Samples containing greater than 50 ng/mL delta-9 THC -COOH or other cross- reacting compounds are reported as positive. False positive and false negative results are possible. Confirmatory testing required for definitive results. Current Interpretive Data was last reviewed 2022. Cocaine, ur Not Detected CutOff 150ng/mL [facility] Comment: Interpretive Data - Cocaine: Samples containing greater than 150 ng/mL benzoylecgonine or other cross- reacting compounds are reported as positive. False positive and false negative results are possible. Confirmatory testing required for definitive results. Current Interpretive Data was last reviewed 2022. Fentanyl, Ur Screen Positive, presumptive (A) CutOff 5 ng/mL [facility] Comment: Interpretive Data - Fentanyl: Samples containing greater than 5 ng/mL norfentanyl, fentanyl, or other cross-reacting fentanyl compounds are reported as positive. False positive and false negative results are possible. Confirmatory testing required for definitive results. Current Interpretive Data was last reviewed 2023. Methadone, ur Not Detected CutOff 300ng/mL [facility] Comment: Interpretive Data - Methadone: Samples containing greater than 300 ng/mL d,l-methadone or other cross-reacting compounds are reported as positive. False positive and false negative results are possible. Confirmatory testing required for definitive results. Current Interpretive Data was last reviewed 2022. Opiates, ur Not Detected CutOff 300ng/mL [facility] Comment: Interpretive Data - Opiates: Samples containing greater than 300 ng/mL morphine or other cross-reacting compounds are reported as positive. False positive and false negative results are possible. Confirmatory testing required for definitive results. Current Interpretive Data was last reviewed 2022. Oxycodone, ur Screen Positive, presumptive (A) CutOff 100ng/mL [facility] Comment: Interpretive Data - Oxycodone: Samples containing greater than 100 ng/mL oxycodone or other cross-reacting compounds are reported as positive. False positive and false negative results are possible. Confirmatory testing required for definitive results. Current Interpretive Data was last reviewed 2022. Phencyclidine, ur Not Detected CutOff 25 ng/mL [facility] Comment: Interpretive Data - Phencyclidine: Samples containing greater than 25 ng/mL phencyclidine or other cross-reacting compounds are reported as positive. False positive and false negative results are possible. Confirmatory testing required for definitive results. Current Interpretive Data was last reviewed 2022. Urine Creatinine 357 mg/dL [facility] Comment: Interpretive Data Urine Creatinine: < 10 mg/dL is extremely dilute = or > 10 but < 20 mg/dL is dilute = or > 20 mg/dL is normal Current Interpretive Data was last revised on 2017. Urine 05/21/2024 5:34 PM MARKET RISK ANALYST 05/21/2024 5:46 PM MARKET RISK ANALYST Narrative [facility] - 05/21/2024 6:16 PM MARKET RISK ANALYST Drug of Abuse screening is performed by immunoassay for medical purposes only. This is not to be used for Pain Management purposes. If Detected, confirmation testing will be performed for Amphetamines, Cocaine, Fentanyl, Methadone, Opiates, Oxycodone or Phencyclidine. us Marcus Amaya MD LAB URINE ORDERABLES F inal Result [facility] [place] [address] * (ABNORMAL) Urinalysis reflex to microscopic (05/21/2024 5:34 PM MARKET RISK ANALYST) Color, ur Yellow Yellow Clarity, ur Clear Clear [facility] Specific gravity, ur 1.032(H) 1.003 - 1.030 [facility] pH, urine 6.0 [facility] Comment: Interpretive Data U rine pH is affected by diet, medications, systemic acid-base disturbances, and renal tubular function. pH may affect urinary stone formation. For example, urine pH below 6.0 may help reduce the tendency for calcium phosphate stones and pH greater than 6.0 may reduce the tendency for uric acid stone formation. Source: [facility] Current Interpretive Data was last revised on 2017 Protein, ur ql 2+(A) Negative [facility] Glucose, ur ql Negative Negative [facility] Ketones, ur 1+(A) Negative [facility] Bilirubin, ur Negative Negative [facility] Blood, ur Negative Negative [facility] Urobilinogen, ur <2.0 <2.0 mg/dL [facility] Nitrite, ur Negative Negative [facility] Leukocyte esterase, ur Negative Negative [facility] UA reflex comment Reflex to microscopic UA will be performed. [facility] Urine 05/21/2024 5:34 PM MARKET RISK ANALYST 05/21/2024 5:39 PM MARKET RISK ANALYST Marcus Amaya MD LAB URINE ORDERABLES F inal Result [facility] Department [place] [address] * Amphetamine Confirmation, Urine (05/21/2024 5:34 PM MARKET RISK ANALYST) Amphetamine Conf, Ur Does Not Confirm CutOff 150ng/mL Methamphetamine Conf, Ur Does Not Confirm CutOff 150ng/mL [facility] MDA Conf, Ur Does Not Confirm CutOff 150ng/mL [facility] MDMA Conf, Ur Does Not Confirm CutOff 50 ng/mL [facility] MDEA Conf, Ur Does Not Confirm CutOff 150ng/mL [facility] MBDB Conf, Ur Does Not Confirm CutOff 150ng/mL [facility] Comment: Interpretive Data This test detects the presence or absence of drug compounds using LC Tandem mass spectrometry. While this test is highly specific, false positive and false negative results may occur in very rare circumstances. Contact the laboratory for consultation, if needed. Performance characteristics were determined by the [facility] in a manner consistent with CLIA requirement and has not been cleared or approved by the U.S. Food and Drug Administration. Current interpretive data was last revised on 2020. Urine 05/21/2024 5:34 PM MARKET RISK ANALYST 05/21/2024 5:46 PM MARKET RISK ANALYST Marcus Amaya MD LAB URINE ORDERABLES F inal Result Performing Organization Address [facility] Co de Phone Number [facility] [place] [address] * (ABNORMAL) Urinalysis, microscopic only (05/21/2024 5:34 PM MARKET RISK ANALYST) WBC, ur 0-5 0 - 5 /HPF RBC, ur 0-2 0 - 2 /HPF [facility] Epithelial cells, squamous, ur 1-5 0 - 5 /HPF [facility] Bacteria, ur Trace(A) [facility] Mucous, ur Present(A) [facility] Hyaline casts, ur 11-20(A) 0 - 10 /LPF [facility] Urine 05/21/2024 5:34 PM MARKET RISK ANALYST 05/21/2024 5:39 PM MARKET RISK ANALYST Marcus Amaya MD LAB URINE ORDERABLES F inal Result Performing Organization Address [facility] Co de Phone Number [facility] [place] [address] * Sepsis Lactate w/ Reflex (05/21/2024 4:33 PM MARKET RISK ANALYST) Sepsis Lactate 1.9 0.7 - 2.0 mmol/L Blood 05/21/2024 4:33 PM MARKET RISK ANALYST 05/21/2024 4:44 PM MARKET RISK ANALYST Marcus Amaya MD LAB BLOOD ORDERABLES F inal Result Performing Organization Address City/[facility]/ZIP Co de Phone Number [facility] [place] [address] * eGFR (05/21/2024 3:41 PM MARKET RISK ANALYST) eGFR 70 >=60 mL/min/1. 73 m2 Comment: Interpretive Data Reference Interval Normal >/= 90 mL/min/1.73m2 Mildly decreased* 60 - 89 mL/min/1.73m2 Mildly to moderately decreased 45 - 59 mL/min/1.73m2 Moderately to severely decreased 30 - 44 mL/min/1.73m2 Severely decreased 15 - 29 mL/min/1.73m2 Kidney Failure < 15 mL/min/1.73m2 *Relative to young adult level Estimated glomerular [...] last reviewed 2021. Blood 05/21/2024 3:41 PM MARKET RISK ANALYST 05/21/2024 4:03 PM MARKET RISK ANALYST Chelle Elliott MD LAB BLOOD ORDERABLES Final Result Performing Organization Address [facility] Co de Phone Number [facility] Department [place] [address] * (ABNORMAL) Differential, auto (05/21/2024 3:41 PM MARKET RISK ANALYST) Neutrophil abs 6.9(H) 1.5 - 6.5 K/cumm Imm gran abs 0.0 0.0 - 0.1 K/cumm [facility] Lymphocyte abs 1.5 0.8 - 3.3 K/cumm [facility] Monocyte abs 0.9(H) 0.2 - 0.8 K/cumm [facility] Eosinophil abs 0.0 0.0 - 0.5 K/cumm [facility] Basophil abs 0.0 0.0 - 0.1 K/cumm [facility] Neutrophil pct 73.5 % [facility] Comment: Interpretive Data Percent cell count reference ranges are not reported, since discordance with absolute values may lead to misinterpretation of CBC data. Current Interpretive Data was last revised on 2017. Imm gran pct 0.3 % [facility] Comment: Interpretive Data Percent cell count reference ranges are not reported, since discordance with absolute values may lead to misinterpretation of CBC data. Current Interpretive Data was last revised on 2017. Lymphocyte pct 15.7 % [facility] Comment: Interpretive Data Percent cell count reference ranges are not reported, since discordance with absolute values may lead to misinterpretation of CBC data. Current Interpretive Data was last revised on 2017. Monocyte pct 10.0 % [facility] Comment: Interpretive Data Percent cell count reference ranges are not reported, since discordance with absolute values may lead to misinterpretation of CBC data. Current Interpretive Data was last revised on 2017. Eosinophil pct 0.1 % [facility] Comment: Interpretive Data Percent cell count reference ranges are not reported, since discordance with absolute values may lead to misinterpretation of CBC data. Current Interpretive Data was last revised on 2017. Basophil pct 0.4 % [facility] Comment: Interpretive Data Percent cell count reference ranges are not reported, since discordance with absolute values may lead to misinterpretation of CBC data. Current Interpretive Data was last revised on 2017. Blood 05/21/2024 3:41 PM MARKET RISK ANALYST 05/21/2024 4:06 PM MARKET RISK ANALYST us Chelle [place] MD LAB BLOOD ORDERABLES Final Result [facility] [place] [address] * CBC with auto differential (05/21/2024 3:41 PM MARKET RISK ANALYST) WBC 9.4 3.8 - 9.9 K/cumm Hgb 13.9 13.0 - 17.5 g/dL [facility] Hct 40.0 38.9 - 50.3 % [facility] Plt 291 150 - 400 K/cumm [facility] MPV 9.1 9.1 - 12.3 fL [facility] RBC 4.59 4.30 - 5.80 M/cumm [facility] MCV 87.1 81.3 - 96.4 fL [facility] MCH 30.3 27.1 - 33.3 pg [facility] MCHC 34.8 32.3 - 35.7 g/dL [facility] RDW CV 13.1 11.1 - 14.9 % [facility] RDW SD 41.8 35.7 - 48.1 fL [facility] NRBC abs 0.00 0.00 - 0.01 K/cumm [facility] Blood (Blood, Venous) 05/21/2024 3:41 PM MARKET RISK ANALYST 05/21/2024 4:06 PM MARKET RISK ANALYST Marcus Amaya MD LAB BLOOD ORDERABLES F inal Result Performing Organization Address City/[facility] Co de Phone Number [facility] [place] [address] * Lipase (05/21/2024 3:41 PM MARKET RISK ANALYST) [facility] Lipase 15 10 - 99 Units/L Blood (Blood, Venous) 05/21/2024 3:41 PM MARKET RISK ANALYST 05/21/2024 4:03 PM MARKET RISK ANALYST Marcus Amaya MD LAB BLOOD ORDERABLES F inal Result Performing Organization Address City/[facility] Co de Phone Number [facility] Department [place] [address] * (ABNORMAL) Comprehensive metabolic panel (05/21/2024 3:41 PM MARKET RISK ANALYST) [facility] Sodium 136 135 - 145 mmol/L Potassium, pl 3.6 3.3 - 4.9 mmol/L [facility] Chloride 99 97 - 110 mmol/L [facility] CO2 22 22 - 32 mmol/L [facility] Anion gap 15 2 - 15 mmol/L [facility] BUN 22 6 - 25 mg/dL [facility] Creatinine 1.37(H) 0.80 - 1.30 mg/dL [facility] Glucose 92 70 - 199 mg/dL [facility] Comment: Interpretive Data Fasting glucose >/= 126 mg/dl is diagnostic for diabetes. Fasting is defined as no caloric intake [...] 2022. Calcium 10.3 8.5 - 10.3 mg/dL [facility] Bilirubin, total 1.5(H) 0.1 - 1.2 mg/dL [facility] Protein, pl 8.5 6.5 - 8.5 g/dL [facility] Albumin 5.1(H) 3.5 - 5.0 g/dL [facility] Alk phos 99 40 - 130 Units/L [facility] ALT 19 7 - 55 Units/L [facility] AST 21 10 - 50 Units/L [facility] Blood 05/21/2024 3:41 PM MARKET RISK ANALYST 05/21/2024 4:03 PM MARKET RISK ANALYST us Marcus Amaya MD LAB BLOOD ORDERABLES F inal Result [facility] Department [place] [address] * ECG 12-LEAD (05/21/2024 2:24 PM MARKET RISK ANALYST) Narrative [facility] - 05/21/2024 2:24 PM MARKET RISK ANALYST Huy Mack MD 05/21/2024 2:27 PM ECG 12 lead Date/Time: 05/21/2024 2:24 [...] follow up: further workup in the ED Procedure Note Huy Mack MD - 05/21/2024 [...] Amaya MD ECG ORDERABLES Final Result [facility] * ECG 12-LEAD (05/19/2024 11:55 PM MARKET RISK ANALYST) Narrative [facility] - 05/19/2024 11:55 PM MARKET RISK ANALYST Deniz Huitron MD 05/19/2024 11:56 PM ECG 12 lead Date/Time: [...] follow up: further workup in the ED Casandra Lock MD ECG ORDERABLES Final Result [facility] * XR Chest PA Lateral 2 Views (05/19/2024 10:34 PM MARKET RISK ANALYST) Anatomical Region Laterality Modality Body, Chest N/A Computed Radiogr aphy 05/19/2024 10:4 3 PM MARKET RISK ANALYST Impressions 05/20/2024 9:03 AM MARKET RISK ANALYST Comparison is made to 07/05/2023. Thoracic aorta [...] Collins Wills M.D. Narrative 05/20/2024 9:03 AM MARKET RISK ANALYST EXAMINATION: 2 view chest radiograph Procedure Note [...] CTA Chest Abdomen Pelvis (05/19/2024 10:20 PM MARKET RISK ANALYST) Anatomical Region Laterality Modality Body N/A Computed Tomogra phy 05/19/2024 10:5 1 PM MARKET RISK ANALYST Impressions 05/20/2024 9:06 AM MARKET RISK ANALYST 1. Unchanged thoracoabdominal aortic dissection status post [...] Collins Wills M.D. Narrative 05/20/2024 9:06 AM MARKET RISK ANALYST EXAMINATION: CT ANGIOGRAPHY OF THE CHEST, ABDOMEN [...] No suspicious osseous lesions. No acute fracture. Procedure Note Collins Wills MD [...] (baseline, 2hr, 4hr, 6hr) (05/19/2024 9:12 PM MARKET RISK ANALYST) Trop I hs 4 <=35 ng/L Comment: Interpretive Data For further hscTnI resources including the diagnostic algorithm and an aid in interpretation, copy and paste this link: https://bjhlab.testcatalog.org/show/hsTrop-1 Current Interpretive Data last revised 2019. Blood 05/19/2024 9:12 PM MARKET RISK ANALYST 05/19/2024 9:28 PM MARKET RISK ANALYST us Cristobal Waldrop MD LAB BLOOD ORDERABLE S Final Result [facility] Department [place] [address] * eGFR (05/19/2024 9:12 PM MARKET RISK ANALYST) eGFR 85 >=60 mL/min/1. 73 m2 Comment: Interpretive Data Reference Interval Normal >/= 90 mL/min/1.73m2 Mildly decreased* 60 - 89 mL/min/1.73m2 Mildly to moderately decreased 45 - 59 mL/min/1.73m2 Moderately to severely decreased 30 - 44 mL/min/1.73m2 Severely decreased 15 - 29 mL/min/1.73m2 Kidney Failure < 15 mL/min/1.73m2 *Relative to young adult level Estimated glomerular [...] last reviewed 2021. Blood 05/19/2024 9:12 PM MARKET RISK ANALYST 05/19/2024 9:28 PM MARKET RISK ANALYST us Cristobal Waldrop MD LAB BLOOD ORDERABLE S Final Result [facility] Department [place] [address] * (ABNORMAL) Differential, auto (05/19/2024 9:12 PM MARKET RISK ANALYST) Neutrophil abs 7.6(H) 1.5 - 6.5 K/cumm Imm gran abs 0.1 0.0 - 0.1 K/cumm [facility] Lymphocyte abs 0.9 0.8 - 3.3 K/cumm [facility] Monocyte abs 0.5 0.2 - 0.8 K/cumm [facility] Eosinophil abs 0.0 0.0 - 0.5 K/cumm [facility] Basophil abs 0.0 0.0 - 0.1 K/cumm [facility] Neutrophil pct 84.3 % [facility] Comment: Interpretive Data Percent cell count reference ranges are not reported, since discordance with absolute values may lead to misinterpretation of CBC data. Current Interpretive Data was last revised on 2017. Imm gran pct 0.7 % [facility] Comment: Interpretive Data Percent cell count reference ranges are not reported, since discordance with absolute values may lead to misinterpretation of CBC data. Current Interpretive Data was last revised on 2017. Lymphocyte pct 9.4 % [facility] Comment: Interpretive Data Percent cell count reference ranges are not reported, since discordance with absolute values may lead to misinterpretation of CBC data. Current Interpretive Data was last revised on 2017. Monocyte pct 5.3 % [facility] Comment: Interpretive Data Percent cell count reference ranges are not reported, since discordance with absolute values may lead to misinterpretation of CBC data. Current Interpretive Data was last revised on 2017. Eosinophil pct 0.1 % [facility] Comment: Interpretive Data Percent cell count reference ranges are not reported, since discordance with absolute values may lead to misinterpretation of CBC data. Current Interpretive Data was last revised on 2017. Basophil pct 0.2 % [facility] Comment: Interpretive Data Percent cell count reference ranges are not reported, since discordance with absolute values may lead to misinterpretation of CBC data. Current Interpretive Data was last revised on 2017. Blood 05/19/2024 9:12 PM MARKET RISK ANALYST 05/19/2024 9:28 PM MARKET RISK ANALYST Cristobal Waldrop MD LAB BLOOD ORDERABLE S Final Result Performing Organization Address [facility]/ZIP Co de Phone Number [facility] [place] [address] * CBC with auto differential (05/19/2024 9:12 PM MARKET RISK ANALYST) Pathologist [facility] WBC 9.0 3.8 - 9.9 K/cumm Hgb 13.7 13.0 - 17.5 g/dL [facility] Hct 39.7 38.9 - 50.3 % [facility] Plt 293 150 - 400 K/cumm [facility] MPV 9.2 9.1 - 12.3 fL [facility] RBC 4.53 4.30 - 5.80 M/cumm [facility] MCV 87.6 81.3 - 96.4 fL [facility] MCH 30.2 27.1 - 33.3 pg [facility] MCHC 34.5 32.3 - 35.7 g/dL [facility] RDW CV 13.2 11.1 - 14.9 % [facility] RDW SD 42.5 35.7 - 48.1 fL [facility] NRBC abs 0.00 0.00 - 0.01 K/cumm [facility] Blood 05/19/2024 9:12 PM MARKET RISK ANALYST 05/19/2024 9:28 PM MARKET RISK ANALYST Cristobal Waldrop MD LAB BLOOD ORDERABLE S Final Result [facility] Department [place] [address] * aPTT (05/19/2024 9:12 PM MARKET RISK ANALYST) Pathologist [facility] aPTT 34 28 - 38 sec Comment: Interpretive Data Heparin therapeutic range: 66.0 - 100.0 seconds. Range based on correlation with therapeutic heparin activity range of 0.3 - 0.7 Units/mL. Current interpretive data was last revised on 2023. Blood 05/19/2024 9:12 PM MARKET RISK ANALYST 05/19/2024 9:32 PM MARKET RISK ANALYST Cristobal Waldrop MD LAB BLOOD ORDERABLE S Final Result Performing Organization Address [facility] de Phone Number [facility] Department [place] [address] * (ABNORMAL) Protime-INR (05/19/2024 9:12 PM MARKET RISK ANALYST) PT 14.2(H) 9.7 - 13.0 sec INR 1.31(H) 0.90 - 1.20 [facility] Comment: Interpretive data Oral anticoagulant therapeutic ranges: Venous thromboembolism prophylaxis or treatment: 2.0-3.0 CARDIOLOGY Standard range: 2.0-3.0 High-intensity range: 2.5-3.5 Refer to indication-specific guidelines for appropriate target ranges for prosthetic heart valve replacement. Current interpretive data was last revised on 2019. Blood 05/19/2024 9:12 PM MARKET RISK ANALYST 05/19/2024 9:32 PM MARKET RISK ANALYST Cristobal Waldrop MD LAB BLOOD ORDERABLE S Final Result Performing Organization Address [facility] de Phone Number [facility] Department [place] [address] * Type and screen (05/19/2024 9:12 PM MARKET RISK ANALYST) Ellen, indirect Negative ABO Rh A Positive [facility] Blood 05/19/2024 9:12 PM MARKET RISK ANALYST 05/19/2024 9:22 PM MARKET RISK ANALYST Narrative [facility] - 05/19/2024 10:07 PM MARKET RISK ANALYST Has the patient had Daratumumab or Isatuximab in the past 6 months?->Unknown Cristobal Waldrop MD LAB BLOOD BANK TEST ORDERABLES Final Result [facility] Department [place] [address] * (ABNORMAL) Comprehensive metabolic panel (05/19/2024 9:12 PM MARKET RISK ANALYST) Sodium 139 135 - 145 mmol/L Potassium, pl 3.9 3.3 - 4.9 mmol/L [facility] Chloride 100 97 - 110 mmol/L [facility] CO2 21(L) 22 - 32 mmol/L [facility] Anion gap 18(H) 2 - 15 mmol/L [facility] BUN 18 6 - 25 mg/dL [facility] Creatinine 1.17 0.80 - 1.30 mg/dL [facility] Glucose 108 70 - 199 mg/dL [facility] Comment: Interpretive Data Fasting glucose >/= 126 mg/dl is diagnostic for diabetes. Fasting is defined as no caloric intake [...] 2022. Calcium 10.2 8.5 - 10.3 mg/dL [facility] Bilirubin, total 1.2 0.1 - 1.2 mg/dL [facility] Protein, pl 8.7(H) 6.5 - 8.5 g/dL [facility] Albumin 5.1(H) 3.5 - 5.0 g/dL [facility] Alk phos 105 40 - 130 Units/L [facility] ALT 23 7 - 55 Units/L [facility] AST 18 10 - 50 Units/L [facility] Blood 05/19/2024 9:12 PM MARKET RISK ANALYST 05/19/2024 9:28 PM MARKET RISK ANALYST us Cristobal Waldrop MD LAB BLOOD ORDERABLE S Final Result [facility] Department [place] [address] * Hepatitis C antibody Blood (09/06/2023 11:15 [...] Edited Result - Final Performing Organization Address City/[facility]/ZIP Co de Phone Number [facility] [place] [address] from Last 3 Months or Most Recently Relevant to Health Maintenance Insurance [facility] Advance Directives For more information, please contact: [phone] * Full Code (Latest Code Status on [...] Healthcare Agent Relationshi p Communication Meron Blankenship [facility] Health Care Agent Care Teams Fishing Game Warden Relationship Specialty Start Date End Date [employer] Pain[employer] PA [address] [place] [address] PCP - General Physician Sweeper Brush Maker Machine 06/14/24 Leo Manzano MD [id number] [place] [address] Surgeon Vascular Surgery 05/16/23
--- OUTSIDE RECORDS SUMMARY | 2024-07-08 11:40 | XMS_ITS | Encounter Summary ---
Author Organization [facility] Healthcare Address [address] [place] [address] Care Team Providers Care Press Brake Operator Name Role Phone Leo Manzano MD Unavailable [phone] Carl Strickland MD Primary Care Provider Ronak Painting Primary Care Provider Encounter Details Date Type Department Care Team (Late st Contact Info) Description 05/25/2024 Documentation [facility] [address] [place] [address] Essie Singh RN Social History Tobacco Use Types Packs/Day Years Used Date Smoking Tobacco: Never Smokeless Tobacco: Never Alcohol Use Standard Drinks/Week Comments Not Currently 0 (1 standard drink = 0.6 oz pur e alcohol) [facility] Utilities Answer Date Recorded In the past 12 months has [employer], gas, oil, or water [employer] threatened to shut off services in your [...] week 05/24/2024 How often do you attend [facility] or religion services? Never 05/24/2024 Do you belong to any clubs o r organizations such as yarsani groups, unions, fraternal or athletic groups, or [...] a intermediate (including now)? Patient declined 10/02/2023 Housing Stability [...] the past 12 m [facility], were you homeless or living in a intermediate (including now)? No 05/24/2024 Personal Safety Answer Date Recorded Have you ever been in or are you currently in a harmful physical or emotional relationship or is someone making you feel afraid or unsafe? 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 Author CCM Chronic Pain Care Plan Chronic Care Management No change(06/20 7:42 AM WINE BOTTLE INSPECTOR) No Rita Landa, RN Note: Problem: Chronic Pain Goals: 1. Minimize further functional decline 2. Maximize quality of life 3. Control pain Strategies: - Activity/exercise program recommendation - Conservative stepwise pain medicine strategy with multi-disciplinary approach - Recommend healthy lifestyle strategies and compensatory methods as needed documented as of this encounter Visit Diagnoses Not on filedocumented in this encounter Care Teams Press Brake Operator Relationship Specialty Start Date End Date Carl Strickland MD [address] [facility] [address] [place] [address] PCP - General Internal Medicine 06/06/23 06/13/24 Ronak Painting PA [address] [facility] [place] [address] PCP - General Physician Cardiovascular Sonographer 06/14/24 Leo Manzano MD [id number] [place] [address] Surgeon Vascular Surgery 05/16/23 documented as of this encounter
--- OUTSIDE RECORDS SUMMARY | 2024-07-08 11:40 | XMS_ITS | Patient Health Summary ---
Author Organization [facility] Address [address] [place] [address] Care Team Providers Care Shoe Reconditioner Name Role Phone Unavailable Primary Care Provider Unavailabl e Note from [facility],non-owned Affiliates and Associated Physician Practices is amultiple site organization consisting of ambulatory clinics and hospital sitesin [place], [place], [place] and [place]. This disclosure is being madepursuant to the Care Everywhere program and may not contain all information available regarding this patient. Last updated 18.[facility] Social History Tobacco Use Types Packs/Day Years Used Date Smoking Tobacco: Never Assessed Sex and Gender Information Value Date Recorded Sex Assigned at Not on file Gender Identity Not on file Sexual Orientation Not on file
--- OUTSIDE RECORDS SUMMARY | 2024-07-08 11:40 | XMS_ITS | Clinical Summary ---
Author Organization [facility] Address [address] [place] [address] Phone Care Team Providers Care Case Finisher Name Role Phone [facility], External Provider Primary Care Provider [...] on file Legal Sex Male 10:28 AM RESEARCH DEVELOPMENT DIRECTOR Gender Identity Not on file Sexual Orientation Not on file Last Filed Vital Signs Vital Sign Reading Time Taken Comments Blood Pressure 142/100 08/07/2015 2:53 PM RESEARCH DEVELOPMENT DIRECTOR Pulse - - Temperature 36.7 C (98 F) 08/07/2015 10:33 AM RESEARCH DEVELOPMENT DIRECTOR Respiratory Rate 16 08/07/2015 2:53 PM RESEARCH DEVELOPMENT DIRECTOR Oxygen Saturation 100% 08/07/2015 2:53 PM RESEARCH DEVELOPMENT DIRECTOR Inhaled Oxygen Concentration - - Weight 83.9 kg (185 lb) 08/07/2015 10:33 AM RESEARCH DEVELOPMENT DIRECTOR Height 177.8 cm (5' 10 ) 08/07/2015 10:33 AM RESEARCH DEVELOPMENT DIRECTOR Body Mass Index 26.54 08/07/2015 10:33 AM RESEARCH DEVELOPMENT DIRECTOR Plan of Treatment Health Maintenance Due Date Last Done Comments DTAP/TDAP/TD VACCINES (1 - Tdap) 2011 HEPATITIS B VACCINES (1 of 3 - 19+ 3-dose series) 2011 INFLUENZA VACCINE (#1) 2023 HPV VACCINES Aged Out No longer eligi ble based on patient's age to complete this topic Insurance Care Teams Case Finisher Relationship Specialty Start Date End Date [facility], External Provider [address] [place] [address] PCP - General 08/07/15
--- OUTSIDE RECORDS SUMMARY | 2024-07-08 11:40 | XMS_ITS | Encounter Summary ---
Author Organization [facility] Address [address] [place] [address] Phone Care Team Providers Care Maltster Name Role Phone Leo Manzano MD Unavailable [phone] Carl Strickland MD Primary Care Provider Ronak Painting Primary Care Provider [phone] Encounter Details Date Type Department Care Team [...] Recorded In the past 12 months has [employer], gas, oil, or water [employer] threatened to shut off services in your home? Patient declined 10/02/2023 Social Connection and Isolation Panel [NHANES] A nswer Date Recorded In a typical week, how many times do you talk on the phone with family, friends, or neighbors? Patient declined 10/02/2023 How often do you get togethe r with friends or relatives? Patient declined 10/02/2023 How often do you attend scientologist or mosque serv ices? 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 Gender Identity Not on file Sexual Orientation Straight 06/12/2023 11 :43 PM ATOMIC PHYSICS TEACHER documented as of this encounter Progress Notes [...] Chronic Care Management No change(06/20 7:42 AM ATOMIC PHYSICS TEACHER) No Rita Landa, RN Note: Problem: Chronic [...] on filedocumented in this encounter Care Teams Maltster Relationship Specialty Start Date End Date Carl Strickland MD [address] [facility] [address] [place] [address] PCP - General Internal Medicine 06/06/23 06/13/24 Ronak Painting PA [address] [place] [address] PCP - General Physician Vocational Technical Education Director 06/14/24 Leo Manzano MD [id number] [place] [address] Surgeon Vascular Surgery 05/16/23 documented as of this encounter
--- OUTSIDE RECORDS SUMMARY | 2024-07-08 11:40 | XMS_ITS | Referral Summary ---
Author Organization [facility] Address [address] [place] [address] Care Team Providers Care Stained Glass Glazier Name Role Phone Leo Manzano MD Unavailable [phone] Ronak Painting Primary Care Provider [phone] Encounters Date Type Department Care Team Description 07/02/2024 Telephone [facility] [address] [place] [address] Adrianne Adams MD PhD PMC Preprocedure 06/27/2024 1:00 PM SANDING MACHINE TENDER [employer]OMATIC Office Visit [facility] [address] [facility] 5th [place] [address] [place] [id number] ANGI (acute kidney injury) (HCC) (Primary Dx) 06/20/2024 7:27 AM SANDING MACHINE TENDER [employer]OMATIC - 06/20/2024 11:59 PM SANDING MACHINE TENDER [employer]OMATIC Hospital Encounter [facility] [address] [facility] [address] [place] [address] Jeremie Macias MD Yoshida, [place], MD PhD Sacroiliitis (HCC) (Primary Dx); Spondylosis of lumbar region without myelopathy or radiculopathy Discharge Disposition: Discharge to home or self care 06/08/2024 Telephone [facility] [address] 8th [place] [address] [place] [address] Joaquín Abarca MD overdue orders 05/23/2024 7:45 PM SANDING MACHINE TENDER [employer] - 05/29/2024 10:36 AM SANDING MACHINE TENDER [employer]OM[employer]IC Hospital Encounter [address] [phone] Gonzalez Lamar DO Ohman, John Westley, MD Abdominal pain (Primary Dx) Discharge Disposition: Discharge to home or self care 05/25/[address] [phone] Essie Singh RN 05/21/2024 4:17 PM SANDING MACHINE TENDER [employer]OMATIC - 05/21/2024 8:27 PM [facility] Emergency [facility] Emergency Department [address] [place] [phone] Marcus Amaya MD Nausea and vomiting, unspecified vomiting type (Primary Dx) Discharge Disposition: Discharge to home or self care 05/19/2024 9:40 PM SANDING MACHINE TENDER [employer]OMATIC - 05/20/2024 1:34 AM [facility] Emergency [facility] Emergency Department [address] [place] [phone] Casandra Lock MD Renz, Nicholas Robert, MD Abdominal pain (Primary Dx); Chronic bilateral low back pain without sciatica; Abdominal aortic aneurysm dissection (HCC) Discharge Disposition: Discharge to home or self care 05/16/2024 2:39 PM SANDING MACHINE TENDER [employer]OMATIC - 05/16/2024 11:59 PM SANDING MACHINE TENDER [employer]OMATIC Hospital Encounter [facility] [address] [facility] [address] [place] [address] Adrianne Adams MD PhD Sacroiliitis (HCC) (Primary Dx) Discharge Disposition: Discharge to home or self care 04/24/2024 Orders Only [facility] [address] [facility] 5th [place] [address] [place] [address] Miguel Dominguez MD ANGI (acute kidney injury) [...] line Assessment & Plan (06/24/2023 12:04 PM SANDING MACHINE TENDER AUTOMATIC): - CT without discitis or osteomyelitis on 06/13 - MRI 06/13 also without discitis or osteomyelitis - no narcotic pain medications are required from vascular surgery perspective - Consult pain management team Pseudoaneurysm following procedure ([facility]) Assessment & Plan (06/24/2023 10:40 AM SANDING MACHINE TENDER AUTOMATIC): - s/p vascular access - Q4 N/V checks - no current surgical intervention - no activity restrictions, OOB/ ambulate Infrarenal abdominal aortic aneurysm, without ru pture 06/13/2023 Assessment & Plan (06/24/2023 10:41 AM SANDING MACHINE TENDER AUTOMATIC): s/p TEVAR on 06/05/23 (graft terminates above celiac take off) 06/11 discharged home; 06/13 Re admitted for worsening back pain, HTN, and subjective fever/chills. - CT 06/13 shows no change in aneurysm, no stent migration, no increase in false lumen perfusion - non operative Polysubstance abuse ([facility]) 06/10/2023 Moderate malnutrition ([facility]) 06/09/2023 Dissection of abdominal aorta ([facility]) 06/03/19 24 Urinary retention 05/16/2023 Assessment & Plan (05/16/2023 10:44 AM SANDING MACHINE TENDER AUTOMATIC): Patient with urinary retention requiring straight cath X1 05/15, now voiding without any issues. - Continue Flomax. - Patient requests urology follow up, referral placed. Epistaxis 05/13/2023 Assessment & Plan (05/13/2023 12:42 PM SANDING MACHINE TENDER AUTOMATIC): Significant nose bleed in the OR requiring intra-op ENT c/s. DL performed, no other sources of bleeding visualized. ACT post protamine 149. - ENT following - ocean spray tid - no other s/s bleeding Pneumonia 05/13/2023 Assessment & Plan (05/13/2023 12:43 PM SANDING MACHINE TENDER AUTOMATIC): Tracheal aspirate 05/05 with Haemophilus Inf - susana(05/04 - 05/10), linezolid (05/04-05/06) HTN (hypertension) 05/13/2023 Assessment & Plan (05/28/2024 8:41 AM SANDING MACHINE TENDER AUTOMATIC): BP well controlled. - continue home amlodipine [...] needed Assessment & Plan (06/24/2023 10:41 AM SANDING MACHINE TENDER AUTOMATIC): Difficult to control Htn. Dr. Abarca following - Continue amlodipine, lisinopril, coreg, hydralazine - SBP goal 120-140 - VS q 4 hrs and prn Assessment & Plan (06/21/2023 7:57 AM SANDING MACHINE TENDER AUTOMATIC): BP stable at present. Recommend discontinuation of the diltiazem and continue amlodipine (as opposed to giving two calcium channel blockers) Assessment & Plan (06/20/2023 8:33 PM SANDING MACHINE TENDER AUTOMATIC): BP improving. Recommend continue medications and follow up bp, except recommend discontinuation of the diltiazem as he is already on a calcium channel louie, amlodipine Assessment & Plan (06/18/2023 7:59 AM SANDING MACHINE TENDER AUTOMATIC): Patient with continued hypertension. Blood pressure in the right arm levels are improved now in the 130s and 140s. Recommend consideration for adjustment of medications as follows. 1. Add spironolactone 25 mg a day 2. Consider adding clonidine 0.1 mg twice a day Assessment & Plan (06/11/2023 7:50 AM SANDING MACHINE TENDER AUTOMATIC): Patient hypertensive. Recommend resuming hydralazine 25 mg 3 times a day. Continue the amlodipine and carvedilol. Follow-up blood pressure. The patient should have follow-up blood pressure when he leaves the hospital as well. Assessment & Plan (06/10/2023 3:48 PM SANDING MACHINE TENDER AUTOMATIC): Goal systolic BP 140-180 for one month [...] status Assessment & Plan (06/09/2023 10:54 AM SANDING MACHINE TENDER AUTOMATIC): Blood pressure well controlled at present. Medicines are being adjusted. Currently on carvedilol and hydralazine. A want to transition to amlodipine 5 mg a day to wean hydralazine, as tolerated, as 3 times a day medication can be difficult long-term Assessment & Plan (05/13/2023 12:49 PM SANDING MACHINE TENDER AUTOMATIC): Hx of uncontrolled HTN, non-compliant to medications. [...] time Assessment & Plan (06/11/2023 7:50 AM SANDING MACHINE TENDER AUTOMATIC): Clinically stable. Renal function stable. Blood pressure improved We will recommend genetic testing as an outpatient Assessment & Plan (06/10/2023 3:48 PM SANDING MACHINE TENDER AUTOMATIC): Presents with abdominal pain and concern for progression of dissection on CT - 06/05/23: OR s/p TEVAR extension and dissection stent placement - BP management per HTN - pain control - Q4 NV checks, Q2 VS - lovenox DVT ppx - He will f/u with Dr. Abarca as outpatient for genetics testing. Assessment & Plan (06/09/2023 10:54 AM SANDING MACHINE TENDER AUTOMATIC): Clinically stable. Renal function stable. Blood pressure improved We will recommend genetic testing as an outpatient Assessment & Plan (05/16/2023 10:45 AM SANDING MACHINE TENDER AUTOMATIC): Patient presented on 05/01 with acute Chest [...] 05/01/2023 Assessment & Plan (05/29/2024 7:45 AM SANDING MACHINE TENDER AUTOMATIC): 34 y/o M with hx of symptomatic Type B aortic dissection requiring TBE and subsequent extension with TEVAR/dissection stents presents as OSH transfer for significant abdominal pain. No concern for mesenteric ischemia. - c/w impulse control - regular diet - transitioned to oral anti-hypertensive - pain management following. Now off lido drip and dilaudid QUOTE CLERK. Dilaudid discontinued 05/28. Pain signed off. Assessment & Plan (10/03/2023 2:00 PM CDT): Follows with Dr Abarca Cont antihypertensives Assessment & Plan (06/18/2023 8:00 AM SANDING MACHINE TENDER AUTOMATIC): Aortic imaging stable on recent CT scan. Continue blood pressure control. Assessment & Plan (05/02/2023 2:02 PM SANDING MACHINE TENDER AUTOMATIC): 32y/o male with uncontrolled HTN who presented to an OSH ER with acute onset shortness of breath, chest pain and back pain. 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 He was transferred to [facility] for further evaluation and treatment. 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 Never 05/24/2024 Do you belong to any clubs o r organizations such as episcopalian groups, unions, fraternal or athletic groups, or [...] on file Legal Sex Male 3:42 AM SANDING MACHINE TENDER AUTOMATIC Gender Identity Not on file Sexual Orientation Straight 06/12/2023 11 :43 PM SANDING MACHINE TENDER AUTOMATIC Last Filed Vital Signs Vital Sign Reading Time Taken Comments Blood Pressure 101/67 06/27/2024 12:49 PM SANDING MACHINE TENDER AUTOMATIC Pulse 83 06/27/2024 12:49 PM SANDING MACHINE TENDER AUTOMATIC Temperature 36.6 C (97.8 F) 06/20/2024 7:35 AM SANDING MACHINE TENDER AUTOMATIC Respiratory Rate 15 06/20/2024 8:49 AM SANDING MACHINE TENDER AUTOMATIC Oxygen Saturation 96% 06/20/2024 8:49 AM SANDING MACHINE TENDER AUTOMATIC Inhaled Oxygen Concentration - - Weight 95.9 kg (211 lb 6.4 oz) 06/27/2024 12:49 PM SANDING MACHINE TENDER AUTOMATIC Height 175.3 cm (5' 9 ) 06/27/2024 12:49 PM SANDING MACHINE TENDER AUTOMATIC Body Mass Index 31.22 06/27/2024 12:49 PM SANDING MACHINE TENDER AUTOMATIC Plan of Treatment Not on file Goals Goal Patient Goal Type Associated Problems Recent Progress Patient-Stated? Author CCM Chronic Pain Care Plan Chronic Care Management No change(06/20 7:42 AM SANDING MACHINE TENDER AUTOMATIC) No Rita aLnda RN Note: Problem: Chronic Pain Goals: 1. Minimize further functional decline 2. Maximize quality of life 3. Control pain Strategies: - Activity/exercise program recommendation - Conservative stepwise pain medicine strategy with multi-disciplinary approach - Recommend healthy lifestyle strategies and compensatory methods as needed Medical Devices Implanted Type Area Mobile Homes Repairer Device Identifier Shelf Expiration Date Model / Serial / Lot [employer] Stent Graft Aortic Covered Tag [id number] Eptfe Nitinol [id number] - [id number] - [id number] Implanted:Qty : 1 on 05/02/2023 by Leo Manzano MD at [facility] Graft N/A: Aorta [employer] [id number] 12/07/2025 [id number] / [id number] / [employer] Stent Graft Thoracic Side Branch Tag [id number] Eptfe Nitinol [id number] - [id number] - [id number] Implanted:Qty : 1 on 05/02/2023 by Leo Manzano MD at [facility] Stent Left: Subclavian [employer] [id number] 06/27/2025 [id number] / [id number] / [employer] Graft Stent Cleghorn Tag L20cm Od37mm Thoracic Active Control [id number] - [id number] - [id number] Implanted:Qty : 1 on 06/05/2023 by Nikhil Samuel MD at [facility] Stent N/A: Descending Thoracic Aorta [employer] [id number] 04/12/2024 [id number] / [id number] / [employer] Zenith 36mm 20-30mm 16mm 180mm 9 Dissection Introducer Sheath [id number] - [id number] Implanted:Qty : 1 on 06/05/2023 by Nikhil Samuel MD at [facility] Stent N/A: Descending Thoracic Aorta [employer] [id number] 12/20/2025 [id number] / / [id number] [employer] Device Clsr Perclose Prostyle Sut-Mediatd Closure-Repai r Sys 25803-19 - [id number] Implanted:Qty : 3 on 05/02/2023 by Leo Manzano MD at [facility] Vascular Closure Device Left: Common Femoral Artery [employer] [id number] 09/26/2024 [id number] / / [id number] Description:Same lot number [employer] Device Clsr Perclose Prostyle Sut-Mediatd Closure-Repai r Sys 44778-15 - [id number] Implanted:Qty : 1 on 06/05/2023 by Nikhil Samuel MD at [facility] Left: Groin [employer] [id number] 12/27/2024 [id number] / / [id number] [employer] Device Clsr Perclose Prostyle Sut-Mediatd Closure-Repai r Sys 66314-99 - [id number] Implanted:Qty : 1 on 06/05/2023 by Nikhil Samuel MD at [facility] Left: Groin [employer] [id number] 12/27/2024 [id number] / / [id number] [employer] Ron Contour 6fr 26cm Large Inner Lumen Low Profile Bladder Ag Taper Latex Free 180-223 - [id number] Implanted:Qty : 1 on 09/27/2023 by Marcus Glass MD at [facility] Right: Ureter [employer] 05/16/2026 [id number] / / [id number] [employer] Ron Contour 6fr 26cm Large Inner Lumen Low Profile Bladder Ag Taper Latex Free 180-223 - [id number] Implanted:Qty : 1 on 10/04/2023 by Otoniel Landa MD at [facility] Right: Ureter [employer] Ron 05/16/2026 [id number] / / [id number] Explanted Type Area Mobile Homes Repairer Device Identifier Shelf Expiration Date Model / Serial / Lot [employer] Inlay Bar Nunn 6fr 28cm Pusher Fluoro Marker Atraumatic Insertion Latex Free [id number] - [id number] Implanted:Qty: 1 on 07/04/2023 by Marcus Gamboa MD at [facility] Explanted:Qty: 1 on 07/14/2023 by Stacia Su MD Stent Left: Ureter [employer] [id number] 04/14/2027 [id number] / / [id number] Procedures Procedure Name Priority Date/Time Associated Diagnosis Comments PAIN MGMT IMAGING SI JOINT BILATERAL ARTHROGRPHY Schedule Routine, Read Routine (OP Routine) 06/20/2024 8:41 AM SANDING MACHINE TENDER AUTOMATIC Sacroiliitis (HCC) EGFR Timed 05/28/2024 3:36 AM SANDING MACHINE TENDER AUTOMATIC BASIC METABOLIC PANEL Timed 05/28/2024 3:36 AM SANDING MACHINE TENDER AUTOMATIC CBC WITHOUT DIFFERENTIAL Timed 05/28/2024 3:36 AM SANDING MACHINE TENDER AUTOMATIC LIDOCAINE LEVEL Timed 05/28/2024 3:36 AM SANDING MACHINE TENDER AUTOMATIC LIDOCAINE LEVEL Timed 05/27/2024 3:29 AM SANDING MACHINE TENDER AUTOMATIC TYPE AND SCREEN Timed 05/27/2024 3:29 AM SANDING MACHINE TENDER AUTOMATIC EGFR Routine 05/26/2024 4:38 AM SANDING MACHINE TENDER AUTOMATIC LIDOCAINE LEVEL Timed 05/26/2024 4:38 AM SANDING MACHINE TENDER AUTOMATIC BASIC METABOLIC PANEL Routine 05/26/2024 4:38 AM SANDING MACHINE TENDER AUTOMATIC CBC WITHOUT DIFFERENTIAL Routine 05/26/2024 4:38 AM SANDING MACHINE TENDER AUTOMATIC EGFR Routine 05/25/2024 4:20 PM SANDING MACHINE TENDER AUTOMATIC BASIC METABOLIC PANEL Routine 05/25/2024 4:20 PM SANDING MACHINE TENDER AUTOMATIC CBC WITHOUT DIFFERENTIAL Routine 05/25/2024 4:20 PM SANDING MACHINE TENDER AUTOMATIC LIDOCAINE LEVEL Routine 05/25/2024 4:20 PM SANDING MACHINE TENDER AUTOMATIC CRITICAL CARE Routine 05/25/2024 8:12 AM SANDING MACHINE TENDER AUTOMATIC Abdominal pain POCT GLUCOSE DEVICE Routine 05/25/2024 4 :16 AM SANDING MACHINE TENDER AUTOMATIC POCT GLUCOSE DEVICE Routine 05/24/2024 1 1:36 PM SANDING MACHINE TENDER AUTOMATIC POCT GLUCOSE DEVICE Routine 05/24/2024 8 :50 PM SANDING MACHINE TENDER AUTOMATIC CRITICAL CARE Routine 05/24/2024 8:47 PM SANDING MACHINE TENDER AUTOMATIC Abdominal pain EGFR Routine 05/24/2024 5:43 PM SANDING MACHINE TENDER AUTOMATIC DIFFERENTIAL AUTO Routine 05/24/2024 5:4 3 PM SANDING MACHINE TENDER AUTOMATIC LACTATE, WHOLE BLOOD STAT 05/24/2024 5:43 PM SANDING MACHINE TENDER AUTOMATIC AMYLASE Routine 05/24/2024 5:43 PM SANDING MACHINE TENDER AUTOMATIC PHOSPHORUS Routine 05/24/2024 5:43 PM SANDING MACHINE TENDER AUTOMATIC MAGNESIUM Routine 05/24/2024 5:43 PM SANDING MACHINE TENDER AUTOMATIC COMPREHENSIVE METABOLIC PANEL Routine 05/24/2024 5:43 PM SANDING MACHINE TENDER AUTOMATIC CBC WITH AUTO DIFFERENTIAL Routine 05/24/2024 5:43 PM SANDING MACHINE TENDER AUTOMATIC POCT GLUCOSE DEVICE Routine 05/24/2024 3 :52 PM SANDING MACHINE TENDER AUTOMATIC POCT GLUCOSE DEVICE Routine 05/24/2024 1 1:06 AM SANDING MACHINE TENDER AUTOMATIC POCT GLUCOSE DEVICE Routine 05/24/2024 7 :46 AM SANDING MACHINE TENDER AUTOMATIC CRITICAL CARE Routine 05/24/2024 6:15 AM SANDING MACHINE TENDER AUTOMATIC Abdominal pain POCT GLUCOSE DEVICE Routine 05/24/2024 3 :23 AM SANDING MACHINE TENDER AUTOMATIC POCT GLUCOSE DEVICE Routine 05/23/2024 1 1:04 PM SANDING MACHINE TENDER AUTOMATIC EGFR STAT 05/23/2024 8:33 PM SANDING MACHINE TENDER AUTOMATIC DIFFERENTIAL AUTO STAT 05/23/2024 8:3 3 PM SANDING MACHINE TENDER AUTOMATIC PROTIME-INR STAT 05/23/2024 8:33 PM SANDING MACHINE TENDER AUTOMATIC APTT STAT 05/23/2024 8:33 PM SANDING MACHINE TENDER AUTOMATIC TYPE AND SCREEN Timed 05/23/2024 8:33 PM SANDING MACHINE TENDER AUTOMATIC CBC WITH AUTO DIFFERENTIAL STAT 05/23/2024 8:33 PM SANDING MACHINE TENDER AUTOMATIC CREATINE KINASE (CK), TOTAL STAT 05/23/2024 8:33 PM SANDING MACHINE TENDER AUTOMATIC LACTATE STAT 05/23/2024 8:33 PM SANDING MACHINE TENDER AUTOMATIC CALCIUM, IONIZED STAT 05/23/2024 8:33 PM SANDING MACHINE TENDER AUTOMATIC PHOSPHORUS STAT 05/23/2024 8:33 PM SANDING MACHINE TENDER AUTOMATIC MAGNESIUM STAT 05/23/2024 8:33 PM SANDING MACHINE TENDER AUTOMATIC COMPREHENSIVE METABOLIC PANEL STAT 05/23/2024 8:[address] SANDING MACHINE TENDER AUTOMATIC CT BODY OUTSIDE REFERENCE Routine 05/23/2024 8:[address] SANDING MACHINE TENDER AUTOMATIC CT BODY OUTSIDE CONSULT Routine 05/23/2024 8:18 PM SANDING MACHINE TENDER AUTOMATIC POCT GLUCOSE DEVICE Routine 05/23/2024 7 :47 PM SANDING MACHINE TENDER AUTOMATIC POCT RAPID HIV ANTIBODY COMMUNITY SCREENING-PAPA ELIGIBLE Routine 05/21/2024 7:35 PM SANDING MACHINE TENDER AUTOMATIC OXYCODONE CONFIRMATION, URINE Routine 05/21/2024 5:34 PM SANDING MACHINE TENDER AUTOMATIC FENTANYL CONFIRMATION, MS URINE Routine 05/21/2024 5:34 PM SANDING MACHINE TENDER AUTOMATIC AMPHETAMINE, URINE, CONFIRMATION Routine 05/21/2024 5:34 PM SANDING MACHINE TENDER AUTOMATIC URINALYSIS, MICROSCOPIC ONLY STAT 05/21/2024 5:34 PM SANDING MACHINE TENDER AUTOMATIC DRUGS OF ABUSE SCREEN, URINE WITH REFLEX CONFIRMATION Routine 05/21/2024 5:34 PM SANDING MACHINE TENDER AUTOMATIC URINALYSIS AND REFLEX TO MICROSCOPIC STAT 05/21/2024 5:34 PM SANDING MACHINE TENDER AUTOMATIC SEPSIS LACTATE WITH REFLEX STAT 05/21/2024 4:33 PM SANDING MACHINE TENDER AUTOMATIC EGFR STAT 05/21/2024 3:41 PM SANDING MACHINE TENDER AUTOMATIC DIFFERENTIAL AUTO STAT 05/21/2024 3:4 1 PM SANDING MACHINE TENDER AUTOMATIC LIPASE STAT 05/21/2024 3:41 PM SANDING MACHINE TENDER AUTOMATIC COMPREHENSIVE METABOLIC PANEL STAT 05/21/2024 3:41 PM SANDING MACHINE TENDER AUTOMATIC CBC WITH AUTO DIFFERENTIAL STAT 05/21/2024 3:41 PM SANDING MACHINE TENDER AUTOMATIC ECG 12-LEAD STAT 05/21/2024 2:24 PM SANDING MACHINE TENDER AUTOMATIC ECG 12-LEAD STAT 05/19/2024 11:55 PM SANDING MACHINE TENDER AUTOMATIC XR CHEST PA LATERAL 2 VIEWS ED 05/19/2024 10:34 PM SANDING MACHINE TENDER AUTOMATIC CTA CHEST ABDOMEN PELVIS ED 05/19/2024 10:20 PM SANDING MACHINE TENDER AUTOMATIC EGFR STAT 05/19/2024 9:12 PM SANDING MACHINE TENDER AUTOMATIC DIFFERENTIAL AUTO Timed 05/19/2024 9:1 2 PM SANDING MACHINE TENDER AUTOMATIC TROPONIN I HIGH-SENSITIVITY SERIES (BASELINE, 2HR, 4HR, 6HR) STAT 05/19/2024 9:12 PM SANDING MACHINE TENDER AUTOMATIC TYPE AND SCREEN STAT 05/19/2024 9:12 PM SANDING MACHINE TENDER AUTOMATIC APTT STAT 05/19/2024 9:12 PM SANDING MACHINE TENDER AUTOMATIC PROTIME-INR STAT 05/19/2024 9:12 PM SANDING MACHINE TENDER AUTOMATIC COMPREHENSIVE METABOLIC PANEL STAT 05/19/2024 9:12 PM SANDING MACHINE TENDER AUTOMATIC CBC WITH AUTO DIFFERENTIAL Timed 05/19/2024 9:12 PM SANDING MACHINE TENDER AUTOMATIC HEPATITIS C ANTIBODY Routine 09/06/2023 11:15 AM CDT from Last 3 Months or Most Recently Relevant to Health Maintenance Results * Imaging SI Joint Injection Bilateral (80800) (06/20/2024 8:41 AM SANDING MACHINE TENDER AUTOMATIC) Narrative [facility] - 06/20/2024 8:41 AM SANDING MACHINE TENDER AUTOMATIC The images from this study are not interpreted by Radiology. Please refer to the physician's procedure / OR operative note. us Adrianne Adams MD PhD IMG PAIN MGMT PROCEDURE S Final Result [facility] * eGFR (05/28/2024 3:36 AM SANDING MACHINE TENDER AUTOMATIC) eGFR >90 >=60 mL/min/1. 73 m2 Comment: [...] last reviewed 2021. Blood 05/28/2024 3:36 AM SANDING MACHINE TENDER AUTOMATIC 05/28/2024 4:30 AM SANDING MACHINE TENDER AUTOMATIC Leo Manzano MD LAB BLOOD ORDERABLES Final Result Performing Organization Address City/[facility]/ZIP Co de Phone Number [facility] Department [place] [address] * (ABNORMAL) Lidocaine level (05/28/2024 3:36 AM SANDING MACHINE TENDER AUTOMATIC) Lidocaine (Xylocaine) <1.0(L) 1.5 - 5.0 mcg/mL Blood 05/28/2024 3:36 AM SANDING MACHINE TENDER AUTOMATIC 05/28/2024 4:30 AM SANDING MACHINE TENDER AUTOMATIC Gonzalez Lamar DO LAB BLOOD ORDERABLES Fin al Result [facility] Department of [employer] [place] [address] * (ABNORMAL) CBC without differential (05/28/2024 3:36 AM SANDING MACHINE TENDER AUTOMATIC) WBC 5.0 3.8 - 9.9 K/cumm Hgb 11.7(L) 13.0 - 17.5 g/dL [facility] Hct 35.3(L) 38.9 - 50.3 % [facility] Plt 240 150 - 400 K/cumm [facility] MPV 9.5 9.1 - 12.3 fL [facility] RBC 3.82(L) 4.30 - 5.80 M/cumm [facility] MCV 92.4 81.3 - 96.4 fL [facility] MCH 30.6 27.1 - 33.3 pg [facility] MCHC 33.1 32.3 - 35.7 g/dL [facility] RDW CV 13.3 11.1 - 14.9 % [facility] RDW SD 45.1 35.7 - 48.1 fL [facility] NRBC abs 0.00 0.00 - 0.01 K/cumm [facility] Blood 05/28/2024 3:36 AM SANDING MACHINE TENDER AUTOMATIC 05/28/2024 4:32 AM SANDING MACHINE TENDER AUTOMATIC Leo Manzano MD LAB BLOOD ORDERABLES Final Result [facility] Department [place] [address] * Basic metabolic panel (05/28/2024 3:36 AM SANDING MACHINE TENDER AUTOMATIC) Sodium 140 135 - 145 mmol/L Potassium, pl 4.0 3.3 - 4.9 mmol/L [facility] Chloride 103 97 - 110 mmol/L [facility] CO2 25 22 - 32 mmol/L [facility] Anion gap 12 2 - 15 mmol/L [facility] BUN 18 6 - 25 mg/dL [facility] Creatinine 1.10 0.80 - 1.30 mg/dL [facility] Glucose 85 70 - 199 mg/dL [facility] Comment: Interpretive Data Fasting glucose [...] 2022. Calcium 9.1 8.5 - 10.3 mg/dL [facility] Blood 05/28/2024 3:36 AM SANDING MACHINE TENDER AUTOMATIC 05/28/2024 4:30 AM SANDING MACHINE TENDER AUTOMATIC us Leo Manzano MD LAB BLOOD ORDERABLES Final Result Performing Organization Address City/[facility] Co de Phone Number [facility] [employer] [place] [address] * Lidocaine level (05/27/2024 3:29 AM SANDING MACHINE TENDER AUTOMATIC) Lidocaine (Xylocaine) 1.5 1.5 - 5.0 mcg/mL Blood 05/27/2024 3:29 AM SANDING MACHINE TENDER AUTOMATIC 05/27/2024 4:21 AM SANDING MACHINE TENDER AUTOMATIC Gonzalez Lamar DO LAB BLOOD ORDERABLES Fin al Result Performing Organization Address [facility] de Phone Number [facility] [employer] [place] [place] [address] * Type and screen (05/27/2024 3:29 AM SANDING MACHINE TENDER AUTOMAT[employer]) Ellen, indirect Negative ABO Rh A Positive [facility] Blood 05/27/2024 3:29 AM SANDING MACHINE TENDER [employer] 05/27/2024 4:33 AM SANDING MACHINE TENDER [employer]OM[employer]IC Narrative [facility] - 05/27/2024 5:33 AM SANDING MACHINE TENDER AUTOMATIC Has the patient had Daratumumab or Isatuximab in the past 6 months?->Unknown Moriah Amin NP LAB BLOOD BANK TEST ORDERABLE S Final Result Performing Organization Address [facility] Co de Phone Number [facility] [employer] [place] [place] [address] * eGFR (05/26/2024 4:38 AM SANDING MACHINE TENDER [employer]) eGFR 86 >=60 mL/min/1. 73 m2 Comment: [...] last reviewed 2021. 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 TENDER [employer] 05/26/2024 5:46 AM SANDING MACHINE TENDER [employer]OM[employer] us Gonzalez Lamar DO LAB BLOOD ORDERABLES Fin al Result Performing Organization Address City/[facility]/ZIP Co de Phone Number [facility] Department [place] [address] * (ABNORMAL) CBC without differential (05/26/2024 4:38 AM SANDING MACHINE TENDER [employer]OMATIC) [facility] WBC 5.5 3.8 - 9.9 K/cumm Hgb 11.5(L) 13.0 - 17.5 g/dL [facility] Hct 34.0(L) 38.9 - 50.3 % [facility] Plt 222 150 - 400 K/cumm [facility] MPV 9.7 9.1 - 12.3 fL [facility] RBC 3.67(L) 4.30 - 5.80 M/cumm [facility] MCV 92.6 81.3 - 96.4 fL [facility] MCH 31.3 27.1 - 33.3 pg [facility] MCHC 33.8 32.3 - 35.7 g/dL [facility] RDW CV 13.3 11.1 - 14.9 % [facility] RDW SD 45.5 35.7 - 48.1 fL [facility] NRBC abs 0.00 0.00 - 0.01 K/cumm [facility] Blood 05/26/2024 4:38 AM SANDING MACHINE T[employer] 05/26/2024 5:46 AM SANDING MACHINE TENDER [employer]IC Moriah Amin NP LAB BLOOD ORDERABLES Final Re sult [facility] One [facility] Department [place] [address] * Basic metabolic panel (05/26/2024 4:38 AM SANDING MACHINE TENDER AUTOMATIC) [facility] Sodium 141 135 - 145 mmol/L Potassium, pl 3.9 3.3 - 4.9 mmol/L [facility] Chloride 107 97 - 110 mmol/L [facility] CO2 26 22 - 32 mmol/L [facility] Anion gap 8 2 - 15 mmol/L [facility] BUN 15 6 - 25 mg/dL [facility] Creatinine 1.16 0.80 - 1.30 mg/dL [facility] Glucose 78 70 - 199 mg/dL [facility] Comment: Interpretive Data Fasting glucose [...] 2022. Calcium 8.6 8.5 - 10.3 mg/dL [facility] Blood 05/26/2024 4:38 AM SANDING MACHINE TENDER [employer] 05/26/2024 5:46 AM SANDING MACHINE TENDER [employer]OM[employer]IC us Moriah Amin NP LAB BLOOD ORDERABLES Final Re sult [facility] One [facility] Department [place] [address] * eGFR (05/25/2024 4:20 PM SANDING MACHINE TENDER [employer]OMATIC) eGFR >90 >=60 mL/min/1. 73 m2 Comment: [...] last reviewed 2021. Blood 05/25/2024 4:20 PM SANDING MACHINE TENDER [employer]OM[employer]IC 05/25/2024 4:33 PM SANDING MACHINE TENDER [employer]OMATIC us Moriah Amin CLINICAL DOCUMENTATION CONSULTANT LAB BLOOD ORDERABLES Final Re sult Performing Organization Address [facility]/ZIP Co de Phone Number [facility] [employer] [place] [address] * Lidocaine level (05/25/2024 4:20 PM SANDING MACHINE TENDER AUTOMATIC) [facility] Lidocaine (Xylocaine) 2.1 1.5 - 5.0 mcg/mL Blood 05/25/2024 4:20 PM SANDING MACHINE TENDER [employer]OM[employer]IC 05/25/2024 4:33 PM SANDING MACHINE TENDER [employer]OMATIC Narrative [facility] - 05/25/2024 5:02 PM SANDING MACHINE TENDER [employer]OMATIC Draw 24 hours after infusion started. Moriah Amin CLINICAL DOCUMENTATION CONSULTANT LAB BLOOD ORDERABLES Final Re sult Performing Organization Address [facility] Co de Phone Number [facility] [place] [address] * (ABNORMAL) CBC without differential (05/25/2024 4:20 PM SANDING MACHINE TENDER AUTOMATIC) [facility] WBC 6.1 3.8 - 9.9 K/cumm Hgb 12.1(L) 13.0 - 17.5 g/dL [facility] Hct 36.3(L) 38.9 - 50.3 % [facility] Plt 246 150 - 400 K/cumm [facility] MPV 9.6 9.1 - 12.3 fL [facility] RBC 4.03(L) 4.30 - 5.80 M/cumm [facility] MCV 90.1 81.3 - 96.4 fL [facility] MCH 30.0 27.1 - 33.3 pg [facility] MCHC 33.3 32.3 - 35.7 g/dL [facility] RDW CV 13.3 11.1 - 14.9 % [facility] RDW SD 44.0 35.7 - 48.1 fL [facility] NRBC abs 0.00 0.00 - 0.01 K/cumm [facility] Blood 05/25/2024 4:20 PM SANDING MACHINE TENDER [employer]OMATIC 05/25/2024 4:33 PM SANDING MACHINE TENDER [employer]OM[employer]IC Moriah Amin CLINICAL DOCUMENTATION CONSULTANT LAB BLOOD ORDERABLES Final Re sult Performing Organization Address City/[facility] Co de Phone Number [facility] Department [place] [address] * Basic metabolic panel (05/25/2024 4:20 PM SANDING MACHINE TENDER AUTOMATIC) [facility] Sodium 140 135 - 145 mmol/L Potassium, pl 3.9 3.3 - 4.9 mmol/L [facility] Chloride 106 97 - 110 mmol/L [facility] CO2 25 22 - 32 mmol/L [facility] Anion gap 9 2 - 15 mmol/L [facility] BUN 10 6 - 25 mg/dL [facility] Creatinine 0.92 0.80 - 1.30 mg/dL [facility] Glucose 98 70 - 199 mg/dL [facility] Comment: Interpretive Data Fasting glucose [...] 2022. Calcium 8.9 8.5 - 10.3 mg/dL [facility] Blood 05/25/2024 4:20 PM SANDING MACHINE TENDER [employer]IC 05/25/2024 4:33 PM SANDING MACHINE TENDER [employer]OMATIC Moriah Amin CLINICAL DOCUMENTATION CONSULTANT LAB BLOOD ORDERABLES Final Re sult Performing Organization Address City/[facility] Co de Phone Number [facility] Department [place] [address] * Critical Care (05/25/2024 8:12 AM SANDING MACHINE TENDER AUTOMATIC) Narrative Rafiq Rodriguez MD - 05/25/2024 8:12 AM SANDING MACHINE TENDER [employer]OM[employer]IC Moriah Amin NP 05/25/2024 3:35 PM Critical [...] plan with the patient's team and other medical/risk consultant staff. This time was in addition to and separate from care provided by other practitioners on this day of service. us Moriah Amin CLINICAL DOCUMENTATION CONSULTANT IN CLINIC/BEDSIDE ORDERABLES Final Result * POCT glucose (05/25/2024 4:16 AM SANDING MACHINE TENDER [employer]OMATIC) Glucose, POC 117 70 - 199 mg/dL Blood 05/25/2024 4:16 AM SANDING MACHINE TENDER [employer]IC 05/25/2024 4:16 AM SANDING MACHINE TENDER [employer]OMATIC Gonzalez Lamar DO LAB POCT ORDERABLES - DE VICE Final Result Performing Organization Address [facility] Co de Phone Number [facility] Department [place] [address] * POCT glucose (05/24/2024 11:36 PM SANDING MACHINE TENDER AUTOMATIC) Glucose, POC 116 70 - 199 mg/dL Blood 05/24/2024 11:3 6 PM SANDING MACHINE TENDER [employer]OMATIC 05/24/2024 11:36 PM SANDING MACHINE TENDER [employer]OMATIC Gonzalez Lamar DO LAB POCT ORDERABLES - DE VICE Final Result Performing Organization Address [facility] Co de Phone Number [facility] Department [place] [address] * POCT glucose (05/24/2024 8:50 PM SANDING MACHINE TENDER AUTOMATIC) Glucose, POC 123 70 - 199 mg/dL Blood 05/24/2024 8:50 PM SANDING MACHINE TENDER [employer]OMATIC 05/24/2024 8:50 PM SANDING MACHINE TENDER [employer]OMATIC Gonzalez Lamar DO LAB POCT ORDERABLES - DE VICE Final Result [facility] Department [place] [address] * Critical Care (05/24/2024 8:47 PM SANDING MACHINE TENDER AUTOMATIC) Narrative Ag Lemos MD - 05/24/2024 8:47 PM SANDING MACHINE TENDER AUTOMATIC Ag Lemos MD 05/25/2024 6:53 AM Critical [...] plan with the ICU team and other medical/risk consultant staff, making frequent assessments and decisions [...] staff us Ag Lemos MD IN CLINIC/BEDSIDE ORDE RABHARDY Final Result * eGFR (05/24/2024 5:43 PM SANDING MACHINE TENDER AUTOMATIC) [facility] eGFR >90 >=60 mL/min/1. 73 [...] last reviewed 2021. Blood 05/24/2024 5:43 PM SANDING MACHINE TENDER [employer]OMATIC 05/24/2024 6:00 PM SANDING MACHINE TENDER AUTOMATIC us Gonzalez Lamar DO LAB BLOOD ORDERABLES Fin al Result [facility] One [facility] Department [place] [address] * Differential, auto (05/24/2024 5:43 PM SANDING MACHINE TENDER AUTOMATIC) Pathologist [facility] Neutrophil abs 4.9 1.5 - 6.5 K/cumm Imm gran abs 0.0 0.0 - 0.1 K/cumm [facility] Lymphocyte abs 1.4 0.8 - 3.3 K/cumm [facility] Monocyte abs 0.8 0.2 - 0.8 K/cumm [facility] Eosinophil abs 0.1 0.0 - 0.5 K/cumm [facility] Basophil abs 0.1 0.0 - 0.1 K/cumm [facility] Neutrophil pct 67.4 % [facility] Comment: Interpretive Data Percent cell count reference ranges are not reported, since discordance with absolute values may lead to misinterpretation of CBC data. Current Interpretive Data was last revised on 2017. Imm gran pct 0.4 % [facility] Comment: Interpretive Data Percent cell count reference ranges are not reported, since discordance with absolute values may lead to misinterpretation of CBC data. Current Interpretive Data was last revised on 2017. Lymphocyte pct 19.4 % [facility] Comment: Interpretive Data Percent cell count reference ranges are not reported, since discordance with absolute values may lead to misinterpretation of CBC data. Current Interpretive Data was last revised on 2017. Monocyte pct 11.3 % [facility] Comment: Interpretive Data Percent cell count reference ranges are not reported, since discordance with absolute values may lead to misinterpretation of CBC data. Current Interpretive Data was last revised on 2017. Eosinophil pct 0.8 % [facility] Comment: Interpretive Data Percent cell count reference ranges are not reported, since discordance with absolute values may lead to misinterpretation of CBC data. Current Interpretive Data was last revised on 2017. Basophil pct 0.7 % [facility] Comment: Interpretive Data Percent cell count reference ranges are not reported, since discordance with absolute values may lead to misinterpretation of CBC data. Current Interpretive Data was last revised on 2017. Blood 05/24/2024 5:43 PM SANDING MACHINE TENDER [employer] 05/24/2024 6:00 PM SANDING MACHINE TENDER [employer] us Gonzalez Lamar DO LAB BLOOD ORDERABLES Fin al Result [facility] One [facility] Department [place] [address] * (ABNORMAL) CBC with auto differential (05/24/2024 5:43 PM SANDING MACHINE TENDER [employer]OMATIC) WBC 7.2 3.8 - 9.9 K/cumm Hgb 11.5(L) 13.0 - 17.5 g/dL [facility] Hct 34.7(L) 38.9 - 50.3 % [facility] Plt 233 150 - 400 K/cumm [facility] MPV 9.2 9.1 - 12.3 fL [facility] RBC 3.77(L) 4.30 - 5.80 M/cumm [facility] MCV 92.0 81.3 - 96.4 fL [facility] MCH 30.5 27.1 - 33.3 pg [facility] MCHC 33.1 32.3 - 35.7 g/dL [facility] RDW CV 13.0 11.1 - 14.9 % [facility] RDW SD 43.8 35.7 - 48.1 fL [facility] NRBC abs 0.00 0.00 - 0.01 K/cumm [facility] Blood 05/24/2024 5:43 PM SANDING MACHINE TENDER [employer] 05/24/2024 6:00 PM SANDING MACHINE TENDER [employer] Gonzalez Lamar DO LAB BLOOD ORDERABLES Fin al Result Performing Organization Address [facility] de Phone Number [facility] Department [place] [address] * Lactate, whole blood (05/24/2024 5:43 PM SANDING MACHINE TENDER [employer]) Lactate, bld 0.7 0.7 - 2.0 mmol/L Blood 05/24/2024 5:43 PM SANDING MACHINE TENDER [employer] 05/24/2024 5:50 PM SANDING MACHINE TENDER [employer]ATIC Moriah Amin CLINICAL DOCUMENTATION CONSULTANT LAB BLOOD ORDERABLES Final Re sult Performing Organization Address [facility] de Phone Number [facility] Department [place] [address] * Phosphorus (05/24/2024 5:43 PM SANDING MACHINE TENDER AUTOMATIC) Phosphorus, pl 2.7 2.3 - 4.5 mg/dL Blood 05/24/2024 5:43 PM SANDING MACHINE TENDER [employer]ATIC 05/24/2024 6:00 PM SANDING MACHINE TENDER [employer] Gonzalez Lamar DO LAB BLOOD ORDERABLES Fin al Result Performing Organization Address [facility] de Phone Number [facility] [place] [address] * Magnesium (05/24/2024 5:43 PM SANDING MACHINE TENDER AUTOMATIC) [facility] Magnesium 2.0 1.4 - 2.5 mg/dL Blood 05/24/2024 5:43 PM SANDING MACHINE TENDER [employer]OMATIC 05/24/2024 6:00 PM SANDING MACHINE TENDER AUTOMATIC Gonzalez Lamar DO LAB BLOOD ORDERABLES Fin al Result [facility] [place] [address] * Amylase (05/24/2024 5:43 PM SANDING MACHINE TENDER AUTOMATIC) [facility] Amylase 35 30 - 99 Units/L Blood 05/24/2024 5:43 PM SANDING MACHINE TENDER [employer]OMATIC 05/24/2024 6:00 PM SANDING MACHINE TENDER AUTOMATIC Moriah Amin CLINICAL DOCUMENTATION CONSULTANT LAB BLOOD ORDERABLES Final Re sult Performing Organization Address City/[facility]/[place] [address] * Comprehensive metabolic panel (05/24/2024 5:43 PM SANDING MACHINE TENDER AUTOMATIC) [facility] Sodium 140 135 - 145 mmol/L Potassium, pl 3.9 3.3 - 4.9 mmol/L [facility] Chloride 105 97 - 110 mmol/L [facility] CO2 25 22 - 32 mmol/L [facility] Anion gap 10 2 - 15 mmol/L [facility] BUN 6 6 - 25 mg/dL [facility] Creatinine 0.88 0.80 - 1.30 mg/dL [facility] Glucose 86 70 - 199 mg/dL [facility] Comment: Interpretive Data Fasting glucose [...] Calcium 8.9 8.5 - 10.3 mg/dL [facility] Bilirubin, total 0.8 0.1 - 1.2 mg/dL [facility] Protein, pl 6.7 6.5 - 8.5 g/dL [facility] Albumin 4.1 3.5 - 5.0 g/dL [facility] Alk phos 81 40 - 130 Units/L [facility] ALT 15 7 - 55 Units/L [facility] AST 17 10 - 50 Units/L [facility] Blood 05/24/2024 5:43 PM SANDING MACHINE TENDER [employer]OMATIC 05/24/2024 6:00 PM SANDING MACHINE TENDER AUTOMATIC Gonzalez Lamar DO LAB BLOOD ORDERABLES Fin al Result Performing Organization Address City/[facility]/ZIP Co de Phone Number [facility] Department of [employer] [place] [address] * POCT glucose (05/24/2024 3:52 PM SANDING MACHINE TENDER AUTOMATIC) Glucose, POC 84 70 - 199 mg/dL Blood 05/24/2024 3:52 PM SANDING MACHINE TENDER [employer]OMATIC 05/24/2024 3:52 PM SANDING MACHINE TENDER [employer]OMATIC Gonzalez Lamar DO LAB POCT ORDERABLES - DE VICE Final Result Performing Organization Address [facility]/ZIP Co de Phone Number [facility] Department of [employer] [place] [address] * POCT glucose (05/24/2024 11:06 AM SANDING MACHINE TENDER AUTOMATIC) Glucose, POC 138 70 - 199 mg/dL Blood 05/24/2024 11:0 6 AM SANDING MACHINE TENDER [employer]OMATIC 05/24/2024 11:06 AM SANDING MACHINE TENDER AUTOMATIC Gonzalez Lamar DO LAB POCT ORDERABLES - DE VICE Final Result Performing Organization Address [facility] Co de Phone Number [facility] Department [place] [address] * POCT glucose (05/24/2024 7:46 AM SANDING MACHINE TENDER AUTOMATIC) Glucose, POC 86 70 - 199 mg/dL Blood 05/24/2024 7:46 AM SANDING MACHINE TENDER [employer]OMATIC 05/24/2024 7:46 AM SANDING MACHINE TENDER AUTOMATIC Gonzalez Lamar DO LAB POCT ORDERABLES - DE VICE Final Result Performing Organization Address [facility] Phone Number [facility] Department [place] [address] * Critical Care (05/24/2024 6:15 AM SANDING MACHINE TENDER AUTOMATIC) Narrative Rafiq Rodriguez MD - 05/24/2024 6:15 AM SANDING MACHINE TENDER [employer] Moriah Amin NP 05/24/2024 5:42 PM Critical [...] plan with the ICU team and other medical/risk consultant staff, making frequent assessments and decisions [...] or life-threatening deterioration of the following conditions: us Moriah Amin NP IN CLINIC/BEDSIDE ORDERABLES Final Result * POCT glucose (05/24/2024 3:23 AM SANDING MACHINE TENDER [employer]ATIC) Glucose, POC 85 70 - 199 mg/dL Blood 05/24/2024 3:23 AM SANDING MACHINE TENDER [employer] 05/24/2024 3:23 AM SANDING MACHINE TENDER [employer]OMATIC Gonzalez Lamar DO LAB POCT ORDERABLES - DE VICE Final Result Performing Organization Address [facility] Phone Number [facility] of [employer] [place] [address] * POCT glucose (05/23/2024 11:04 PM SANDING MACHINE TENDER AUTOMATIC) Pathologist [facility] Glucose, POC 84 70 - 199 mg/dL Blood 05/23/2024 11:0 4 PM SANDING MACHINE TENDER [employer]ATIC 05/23/2024 11:04 PM SANDING MACHINE TENDER [employer]OMATIC Gonzalez Lamar DO LAB POCT ORDERABLES - DE VICE Final Result Performing Organization Address [facility] Phone Number [facility] of [employer] [place] [address] * Lactate (05/23/2024 8:33 PM SANDING MACHINE TENDER AUTOMATIC) [facility] Lactate 0.7 0.7 - 2.0 mmol/L Blood 05/23/2024 8:33 PM SANDING MACHINE TENDER [employer]OMATIC 05/23/2024 9:39 PM SANDING MACHINE TENDER AUTOMATIC Gonzalez Lamar DO LAB BLOOD ORDERABLES Fin al Result Performing Organization Address [facility] Phone Number [facility] [employer] [place] [place] [address] * eGFR (05/23/2024 8:33 PM SANDING MACHINE TENDER AUTOMATIC) [facility] eGFR >90 >=60 mL/min/1. 73 [...] last reviewed 2021. Blood 05/23/2024 8:33 PM SANDING MACHINE TENDER [employer]ATIC 05/23/2024 9:17 PM SANDING MACHINE TENDER AUTOMATIC Gonzalez Lamar DO LAB BLOOD ORDERABLES Fin al Result [facility] Department [place] [address] * Differential, auto (05/23/2024 8:33 PM SANDING MACHINE TENDER [employer]OMATIC) Neutrophil abs 3.9 1.5 - 6.5 K/cumm Imm gran abs 0.0 0.0 - 0.1 K/cumm [facility] Lymphocyte abs 1.9 0.8 - 3.3 K/cumm [facility] Monocyte abs 0.8 0.2 - 0.8 K/cumm [facility] Eosinophil abs 0.0 0.0 - 0.5 K/cumm [facility] Basophil abs 0.0 0.0 - 0.1 K/cumm [facility] Neutrophil pct 58.1 % [facility] Comment: Interpretive Data Percent cell count reference ranges are not reported, since discordance with absolute values may lead to misinterpretation of CBC data. Current Interpretive Data was last revised on 2017. Imm gran pct 0.4 % [facility] Comment: Interpretive Data Percent cell count reference ranges are not reported, since discordance with absolute values may lead to misinterpretation of CBC data. Current Interpretive Data was last revised on 2017. Lymphocyte pct 28.1 % [facility] Comment: Interpretive Data Percent cell count reference ranges are not reported, since discordance with absolute values may lead to misinterpretation of CBC data. Current Interpretive Data was last revised on 2017. Monocyte pct 12.4 % [facility] Comment: Interpretive Data Percent cell count reference ranges are not reported, since discordance with absolute values may lead to misinterpretation of CBC data. Current Interpretive Data was last revised on 2017. Eosinophil pct 0.4 % [facility] Comment: Interpretive Data Percent cell count reference ranges are not reported, since discordance with absolute values may lead to misinterpretation of CBC data. Current Interpretive Data was last revised on 2017. Basophil pct 0.6 % [facility] Comment: Interpretive Data Percent cell count reference ranges are not reported, since discordance with absolute values may lead to misinterpretation of CBC data. Current Interpretive Data was last revised on 2017. Blood 05/23/2024 8:33 PM SANDING MACHINE TENDER [employer] 05/23/2024 9:29 PM SANDING MACHINE TENDER AUTOMATIC us Gonzalez Lamar DO LAB BLOOD ORDERABLES Fin al Result [facility] Department of [employer] [place] [address] * (ABNORMAL) Calcium, ionized (05/23/2024 8:33 PM SANDING MACHINE TENDER [employer]) Calcium, Ionized 4.48(L) 4.50 - 5.10 mg/dL Blood 05/23/2024 8:33 PM SANDING MACHINE TENDER [employer] 05/23/2024 9:17 PM SANDING MACHINE TENDER [employer]OMAT[employer] Gonzalez Lamar DO LAB BLOOD ORDERABLES Fin al Result [facility] Department [place] [address] * (ABNORMAL) CBC with auto differential (05/23/2024 8:33 PM SANDING MACHINE TENDER AUTOMATIC) [facility] WBC 6.8 3.8 - 9.9 K/cumm Hgb 11.4(L) 13.0 - 17.5 g/dL [facility] Hct 33.7(L) 38.9 - 50.3 % [facility] Plt 237 150 - 400 K/cumm [facility] MPV 9.5 9.1 - 12.3 fL [facility] RBC 3.80(L) 4.30 - 5.80 M/cumm [facility] MCV 88.7 81.3 - 96.4 fL [facility] MCH 30.0 27.1 - 33.3 pg [facility] MCHC 33.8 32.3 - 35.7 g/dL [facility] RDW CV 13.0 11.1 - 14.9 % [facility] RDW SD 42.2 35.7 - 48.1 fL [facility] NRBC abs 0.00 0.00 - 0.01 K/cumm [facility] Blood 05/23/2024 8:33 PM SANDING MACHINE TENDER [employer] 05/23/2024 9:29 PM SANDING MACHINE TENDER [employer] Gonzalez Lamar DO LAB BLOOD ORDERABLES Fin al Result Performing Organization Address [facility] Co de Phone Number [facility] Department [place] [address] * aPTT (05/23/2024 8:33 PM SANDING MACHINE TENDER [employer]OM[employer]) [facility] aPTT 31 28 - 38 sec Comment: Interpretive Data Heparin therapeutic range: 66.0 - 100.0 seconds. Range based on correlation with therapeutic heparin activity range of 0.3 - 0.7 Units/mL. Current interpretive data was last revised on 2023. Blood 05/23/2024 8:33 PM SANDING MACHINE [employer] 05/23/2024 9:20 PM SANDING MACHINE TENDER [employer] Gonzalez Lamar DO LAB BLOOD ORDERABLES Fin al Result Performing Organization Address [facility] Co de Phone Number [facility] [place] [address] * (ABNORMAL) Protime-INR (05/23/2024 8:33 PM SANDING MACHINE [employer]) Pathologist [facility] PT 14.6(H) 9.7 - 13.0 sec INR 1.34(H) 0.90 - 1.20 [facility] Comment: Interpretive data Oral anticoagulant therapeutic ranges: Venous thromboembolism prophylaxis or treatment: 2.0-3.0 CARDIOLOGY Standard range: 2.0-3.0 High-intensity range: 2.5-3.5 Refer to indication-specific guidelines for appropriate target ranges for prosthetic heart valve replacement. Current interpretive data was last revised on 2019. Blood 05/23/2024 8:33 PM SANDING MACHINE [employer] 05/23/2024 9:20 PM [employer]ANDING MACHINE [employer] Gonzalez Lamar DO LAB BLOOD ORDERABLES Fin al Result Performing Organization Address City/[facility]/ZIP Co de Phone Number [facility] [place] [address] * Type and screen (05/23/2024 8:33 PM SANDING MACHINE TEND[employer]) Pathologist [facility] Ellen, indirect Negative ABO Rh A Positive [facility] Blood 05/23/2024 8:33 PM SANDING MACHINE [employer] 05/23/2024 9:31 PM SANDING MACHINE [employer] Narrative [facility] - 05/23/2024 10:36 PM SANDING MACHINE T[employer] Has the patient had Daratumumab or Isatuximab in the past 6 months?->Unknown Moriah Amin NP LAB BLOOD BANK TEST [place] [address] * Phosphorus (05/23/2024 8:33 PM SANDING MACHINE TENDER [employer]) Pathologist [facility] Phosphorus, pl 2.5 2.3 - 4.5 mg/dL Blood 05/23/2024 8:33 PM [employer]ANDING MACHINE [employer] 05/23/2024 9:17 PM [employer]ANDING MACHINE [employer] Gonzalez Lamar DO LAB BLOOD ORDERABLES Fin al Result Performing Organization Address [facility] de Phone Number [facility] [place] [address] * Magnesium (05/23/2024 8:33 PM SANDING MACHINE TENDER [employer]) [facility] Magnesium 2.0 1.4 - 2.5 mg/dL Blood 05/23/2024 8:33 PM SANDING MACHINE [employer] 05/23/2024 9:17 PM SANDING MACHINE [employer] Gonzalez Lamar DO LAB BLOOD ORDERABLES Fin al Result Performing Organization Address [facility] de Phone Number [facility] [place] [address] * Creatine kinase (CK), total (05/23/2024 8:33 PM SANDING MACHINE TENDER [employer]) [facility] CK 159 40 - 300 Units/L Blood 05/23/2024 8:33 PM SANDING MACHINE [employer] 05/23/2024 9:17 PM SANDING MACHINE [employer] Gonzalez Otoniel Lamar DO LAB BLOOD ORDERABLES Fin al Result Performing Organization Address [facility] de Phone Number [facility] [place] [address] * (ABNORMAL) Comprehensive metabolic panel (05/23/2024 8:33 PM SANDING MACHINE TENDER [employer]) [facility] Sodium 141 135 - 145 mmol/L Potassium, pl 3.2(L) 3.3 - 4.9 mmol/L [facility] Chloride 105 97 - 110 mmol/L [facility] CO2 25 22 - 32 mmol/L [facility] Anion gap 11 2 - 15 mmol/L [facility] BUN 11 6 - 25 mg/dL [facility] Creatinine 1.03 0.80 - 1.30 mg/dL [facility] Glucose 84 70 - 199 mg/dL [facility] Comment: Interpretive Data Fasting glucose [...] 2022. Calcium 9.0 8.5 - 10.3 mg/dL [facility] Bilirubin, total 1.2 0.1 - 1.2 mg/dL [facility] Protein, pl 7.0 6.5 - 8.5 g/dL [facility] Albumin 4.2 3.5 - 5.0 g/dL [facility] Alk phos 83 40 - 130 Units/L [facility] ALT 15 7 - 55 Units/L [facility] AST 16 10 - 50 Units/L [facility] Blood 05/23/2024 8:33 PM SANDING MACHINE [employer] 05/23/2024 9:17 PM SANDING MACHINE [employer] us Gonzalez Lamar DO LAB BLOOD ORDERABLES Fin al Result [facility] Department [place] [address] * CT Body Outside Reference (05/23/2024 8:22 PM SANDING MACHINE TENDER [employer]OM[employer]IC) Impressions RAD_PACS_[facility] - 05/23/2024 8:22 PM SANDING MACHINE TENDER [employer]OM[employer]IC These images are for Reference purposes only and have not been reviewed by [facility]. There will be no report generated by a [facility] Radiologist. Narrative [facility] - 05/23/2024 8:22 PM SANDING MACHINE [employer]END[employer] EXAMINATION: Images For Reference Purposes Only us Gadiel Ireland MD IMG CT PROCEDURES Final Result [facility]_PACS_[facility] * CT Body Outside Consult (05/23/2024 8:18 PM SANDING MACHINE TENDER [employer]) Anatomical Region Laterality Modality Body N/A Computed Tomogra phy 05/24/2024 8:05 AM SANDING MACHINE T[employer] Impressions 05/24/2024 8:05 AM SANDING MACHINE TENDER [employer] 1. Unchanged thoracoabdominal aortic dissection status post [...] or may not represent the [place] source data set and thus may contain changes that may lower the accuracy of this second-opinion interpretation. Electronically signed by: Shahrzad Zimmerman M.D. Narrative 05/24/2024 8:05 AM SANDING MACHINE [employer] EXAMINATION: RADIOLOGY CONSULTATION ON OUTSIDE IMAGING STUDY STUDY INITIALLY PERFORMED: 05/23/2024 at [place]. TYPE OF STUDY: Multiple CT images of [...] IMAGING STUDY STUDY INITIALLY PERFORMED: 05/23/2024 at [place]. TYPE OF STUDY: Multiple CT images of [...] or may not represent the [place] source data set and thus may contain changes that may lower the accuracy of this second-opinion interpretation. Electronically signed by: Shahrzad Zimmerman M.D. 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 Urine 05/21/2024 5:34 PM SANDING MACHINE [employer] 05/21/2024 5:46 PM SANDING MACHINE TENDER [employer] Marcus Amaya MD LAB URINE ORDERABLES F inal Result [facility] Department [place] [address] * (ABNORMAL) Fentanyl Confirmation, Urine (05/21/2024 5:34 PM SANDING MACHINE [employer]END[employer]) Fentanyl Conf, Ur Confirmed Positive(A) Cutoff 0.3ng/mL Acetylfentanyl Conf, Ur Does Not Confirm Cutoff 1 ng/mL [facility] Acrylfentanyl Conf, Ur Does Not Confirm Cutoff 1 ng/mL [facility] Furanylfentanyl Conf, Ur Does Not Confirm Cutoff 1 ng/mL [facility] Fentanyl Metabolite (Norfentanyl) Conf, Ur Confirmed Positive(A) CutOff 5 ng/mL [facility] Xylazine MS Does Not Confirm Cutoff 1 ng/mL [facility] Comment: Interpretive Data This test detects [...] last revised 2020. Urine 05/21/2024 5:34 PM SANDING MACHINE TENDER [employer]IC 05/21/2024 5:46 PM SANDING MACHINE TENDER [employer]OMATIC Marcus Amaya MD LAB URINE ORDERABLES F inal Result [facility] Department [place] [address] * (ABNORMAL) Drugs of Abuse Screen, Urine with Reflex Confirmation (05/21/2024 5:34 PM SANDING MACHINE TENDER [employer]OMATIC) Amphetamine, ur Screen Positive, presumptive (A) CutOff 500ng/mL Comment: Interpretive Data - Amphetamines: Samples containing greater than 500 ng/mL d-methamphetamine or other cross-reacting amphetamine compounds are reported as positive. Amphetamine immunoassays are subject to significant false positive rates due to cross-reactivity of non-amphetamine drugs. Confirmatory testing required for definitive results. Current Interpretive Data was last reviewed 2022. Barbiturates, ur Not Detected CutOff 200ng/mL [facility] Comment: Interpretive Data - Barbiturates: Samples containing greater than 200 ng/mL secobarbital or other cross-reacting barbiturate compounds are reported as positive. False positive and false negative results are possible. Confirmatory testing required for definitive results. Current Interpretive Data was last reviewed 2022. Benzodiazepines, ur Screen Positive, presumptive (A) CutOff 100ng/mL [facility] Comment: Interpretive Data - Benzodiazepines: Samples containing greater than 100 ng/mL nordiazepam or other cross-reacting compounds are reported as positive. False positive and false negative results are possible. Confirmatory testing required for definitive results. Current Interpretive Data was last reviewed 2022. Cannabinoids, ur Screen Positive, presumptive (A) CutOff 50 ng/mL [facility] Comment: Interpretive Data - Cannabinoids: Samples containing greater than 50 ng/mL delta-9 THC -COOH or other cross- reacting compounds are reported as positive. False positive and false negative results are possible. Confirmatory testing required for definitive results. Current Interpretive Data was last reviewed 2022. Cocaine, ur Not Detected CutOff 150ng/mL [facility] Comment: Interpretive Data - Cocaine: Samples containing greater than 150 ng/mL benzoylecgonine or other cross- reacting compounds are reported as positive. False positive and false negative results are possible. Confirmatory testing required for definitive results. Current Interpretive Data was last reviewed 2022. Fentanyl, Ur Screen Positive, presumptive (A) CutOff 5 ng/mL [facility] Comment: Interpretive Data - Fentanyl: Samples containing greater than 5 ng/mL norfentanyl, fentanyl, or other cross-reacting fentanyl compounds are reported as positive. False positive and false negative results are possible. Confirmatory testing required for definitive results. Current Interpretive Data was last reviewed 2023. Methadone, ur Not Detected CutOff 300ng/mL [facility] Comment: Interpretive Data - Methadone: Samples containing greater than 300 ng/mL d,l-methadone or other cross-reacting compounds are reported as positive. False positive and false negative results are possible. Confirmatory testing required for definitive results. Current Interpretive Data was last reviewed 2022. Opiates, ur Not Detected CutOff 300ng/mL [facility] Comment: Interpretive Data - Opiates: Samples containing greater than 300 ng/mL morphine or other cross-reacting compounds are reported as positive. False positive and false negative results are possible. Confirmatory testing required for definitive results. Current Interpretive Data was last reviewed 2022. Oxycodone, ur Screen Positive, presumptive (A) CutOff 100ng/mL [facility] Comment: Interpretive Data - Oxycodone: Samples containing greater than 100 ng/mL oxycodone or other cross-reacting compounds are reported as positive. False positive and false negative results are possible. Confirmatory testing required for definitive results. Current Interpretive Data was last reviewed 2022. Phencyclidine, ur Not Detected CutOff 25 ng/mL [facility] Comment: Interpretive Data - Phencyclidine: Samples containing greater than 25 ng/mL phencyclidine or other cross-reacting compounds are reported as positive. False positive and false negative results are possible. Confirmatory testing required for definitive results. Current Interpretive Data was last reviewed 2022. Urine Creatinine 357 mg/dL [facility] Comment: Interpretive Data Urine Creatinine: < 10 mg/dL is extremely dilute = or > 10 but < 20 mg/dL is dilute = or > 20 mg/dL is normal Current Interpretive Data was last revised on 2017. Urine 05/21/2024 5:34 PM SANDING MACHINE [employer] 05/21/2024 5:46 PM SANDING MACHINE [employer]ER [employer]IC Narrative [facility] - 05/21/2024 6:16 PM SANDING MACHINE [employer] Drug of Abuse screening is performed by immunoassay for medical purposes only. This is not to be used for Pain Management purposes. If Detected, confirmation testing will be performed for Amphetamines, Cocaine, Fentanyl, Methadone, Opiates, Oxycodone or Phencyclidine. us Marcus Amaya MD LAB URINE ORDERABLES F inal Result [facility] Department [place] [address] * (ABNORMAL) Urinalysis reflex to microscopic (05/21/2024 5:34 PM SANDING MACHINE TENDER [employer]) Color, ur Yellow Yellow Clarity, ur Clear Clear [facility] Specific gravity, ur 1.032(H) 1.003 - 1.030 [facility] pH, urine 6.0 [facility] Comment: Interpretive Data U rine pH is affected by diet, medications, systemic acid-base disturbances, and renal tubular function. pH may affect urinary stone formation. For example, urine pH below 6.0 may help reduce the tendency for calcium phosphate stones and pH greater than 6.0 may reduce the tendency for uric acid stone formation. Source: [facility] [employer] Current Interpretive Data was last revised on 2017 Protein, ur ql 2+(A) Negative [facility] Glucose, ur ql Negative Negative [facility] Ketones, ur 1+(A) Negative [facility] Bilirubin, ur Negative Negative [facility] Blood, ur Negative Negative [facility] Urobilinogen, ur <2.0 <2.0 mg/dL [facility] Nitrite, ur Negative Negative [facility] Leukocyte esterase, ur Negative Negative [facility] UA reflex comment Reflex to microscopic UA will be performed. [facility] Urine 05/21/2024 5:34 PM SANDING MACHINE [employer] 05/21/2024 5:39 PM SANDING MACHINE [employer] Marcus Amaya MD LAB URINE ORDERABLES F inal Result Performing Organization Address [facility] de Phone Number [facility] Department [place] [address] * Amphetamine Confirmation, Urine (05/21/2024 5:34 PM SANDING MACHINE [employer]ER [employer]) Amphetamine Conf, Ur Does Not Confirm CutOff [...] revised on 2020. Urine 05/21/2024 5:34 PM SANDING MACHINE [employer]ER [employer] 05/21/2024 5:46 PM SANDING MACHINE [employer]ER [employer]IC Marcus Amaya MD LAB URINE ORDERABLES F inal Result Performing Organization Address [facility] Co de Phone Number [facility] Department [place] [address] * (ABNORMAL) Urinalysis, microscopic only (05/21/2024 5:34 PM SANDING MACHINE [employer]) WBC, ur 0-5 0 - 5 /HPF RBC, ur 0-2 0 - 2 /HPF [facility] Epithelial cells, squamous, ur 1-5 0 - 5 /HPF [facility] Bacteria, ur Trace(A) [facility] Mucous, ur Present(A) [facility] Hyaline casts, ur 11-20(A) 0 - 10 /LPF [facility] Urine 05/21/2024 5:34 PM SANDING MACHINE [employer] 05/21/2024 5:39 PM SANDING MACHINE [employer] Marcus Amaya MD LAB URINE ORDERABLES F inal Result Performing Organization Address City/[facility] Co de Phone Number [facility] Department [place] [address] * Sepsis Lactate w/ Reflex (05/21/2024 4:33 PM SANDING MACHINE TEND[employer]IC) Pathologist [facility] Sepsis Lactate 1.9 0.7 - 2.0 mmol/L Blood 05/21/2024 4:33 PM SANDING MACHINE [employer] 05/21/2024 4:44 PM SANDING MACHINE [employer] Marcus Amaya MD LAB BLOOD ORDERABLES F inal Result Performing Organization Address [facility] de Phone Number [facility] Department [place] [address] * eGFR (05/21/2024 3:41 PM SANDING MACHINE [employer]) eGFR 70 >=60 mL/min/1. 73 m2 Comment: [...] last reviewed 2021. Blood 05/21/2024 3:41 PM SANDING MACHINE [employer] 05/21/2024 4:03 PM SANDING MACHINE [employer] Chelle Elliott MD LAB BLOOD ORDERABLES Final Result [facility] Department [place] [address] * (ABNORMAL) Differential, auto (05/21/2024 3:41 PM SANDING MACHINE [employer]) Neutrophil abs 6.9(H) 1.5 - 6.5 K/cumm Imm gran abs 0.0 0.0 - 0.1 K/cumm [facility] Lymphocyte abs 1.5 0.8 - 3.3 K/cumm [facility] Monocyte abs 0.9(H) 0.2 - 0.8 K/cumm [facility] Eosinophil abs 0.0 0.0 - 0.5 K/cumm [facility] Basophil abs 0.0 0.0 - 0.1 K/cumm [facility] Neutrophil pct 73.5 % [facility] Comment: Interpretive Data Percent cell count reference ranges are not reported, since discordance with absolute values may lead to misinterpretation of CBC data. Current Interpretive Data was last revised on 2017. Imm gran pct 0.3 % [facility] Comment: Interpretive Data Percent cell count reference ranges are not reported, since discordance with absolute values may lead to misinterpretation of CBC data. Current Interpretive Data was last revised on 2017. Lymphocyte pct 15.7 % [facility] Comment: Interpretive Data Percent cell count reference ranges are not reported, since discordance with absolute values may lead to misinterpretation of CBC data. Current Interpretive Data was last revised on 2017. Monocyte pct 10.0 % [facility] Comment: Interpretive Data Percent cell count reference ranges are not reported, since discordance with absolute values may lead to misinterpretation of CBC data. Current Interpretive Data was last revised on 2017. Eosinophil pct 0.1 % [facility] Comment: Interpretive Data Percent cell count reference ranges are not reported, since discordance with absolute values may lead to misinterpretation of CBC data. Current Interpretive Data was last revised on 2017. Basophil pct 0.4 % [facility] Comment: Interpretive Data Percent cell count reference ranges are not reported, since discordance with absolute values may lead to misinterpretation of CBC data. Current Interpretive Data was last revised on 2017. Blood 05/21/2024 3:41 PM SANDING MACHINE [employer] 05/21/2024 4:06 PM SANDING MACHINE [employer] us Chelle Elliott MD LAB BLOOD ORDERABLES Final Result [facility] Department [place] [address] * CBC with auto differential (05/21/2024 3:41 PM SANDING MACHINE T[employer]ER [employer]) WBC 9.4 3.8 - 9.9 K/cumm Hgb 13.9 13.0 - 17.5 g/dL [facility] Hct 40.0 38.9 - 50.3 % [facility] Plt 291 150 - 400 K/cumm [facility] MPV 9.1 9.1 - 12.3 fL [facility] RBC 4.59 4.30 - 5.80 M/cumm [facility] MCV 87.1 81.3 - 96.4 fL [facility] MCH 30.3 27.1 - 33.3 pg [facility] MCHC 34.8 32.3 - 35.7 g/dL [facility] RDW CV 13.1 11.1 - 14.9 % [facility] RDW SD 41.8 35.7 - 48.1 fL [facility] NRBC abs 0.00 0.00 - 0.01 K/cumm [facility] Blood (Blood, Venous) 05/21/2024 3:41 PM SANDING MACHINE [employer] 05/21/2024 4:06 PM SANDING MACHINE [employer] us Marcus Amaya MD LAB BLOOD ORDERABLES F inal Result Performing Organization Address City/[facility]/ZIP Co de Phone Number [facility] [employer] [place] [address] * Lipase (05/21/2024 3:41 PM SANDING MACHINE TENDER [employer]OMAT[employer]) Pathologist [facility] Lipase 15 10 - 99 Units/L Blood (Blood, Venous) 05/21/2024 3:41 PM SANDING MACHINE [employer] 05/21/2024 4:03 PM SANDING MACHINE [employer] Marcus Amaya MD LAB BLOOD ORDERABLES F inal Result Performing Organization Address [facility] de Phone Number [facility] Department of [employer] [place] [address] * (ABNORMAL) Comprehensive metabolic panel (05/21/2024 3:41 PM SANDING MACHINE [employer]) [facility] Sodium 136 135 - 145 mmol/L Potassium, pl 3.6 3.3 - 4.9 mmol/L [facility] Chloride 99 97 - 110 mmol/L [facility] CO2 22 22 - 32 mmol/L [facility] Anion gap 15 2 - 15 mmol/L [facility] BUN 22 6 - 25 mg/dL [facility] Creatinine 1.37(H) 0.80 - 1.30 mg/dL [facility] Glucose 92 70 - 199 mg/dL [facility] Comment: Interpretive Data Fasting glucose [...] 2022. Calcium 10.3 8.5 - 10.3 mg/dL [facility] Bilirubin, total 1.5(H) 0.1 - 1.2 mg/dL [facility] Protein, pl 8.5 6.5 - 8.5 g/dL [facility] Albumin 5.1(H) 3.5 - 5.0 g/dL [facility] Alk phos 99 40 - 130 Units/L [facility] ALT 19 7 - 55 Units/L [facility] AST 21 10 - 50 Units/L [facility] Blood 05/21/2024 3:41 PM [employer]ING [employer] 05/21/2024 4:03 PM SANDING M[employer]INE [employer] us Marcus Amaya MD LAB BLOOD ORDERABLES F inal Result [facility] Department [place] [address] * ECG 12-LEAD (05/21/2024 2:24 PM SANDING MACHINE [employer]) Narrative [facility] - 05/21/2024 2:24 PM SANDING M[employer]INE [employer] Huy Mack MD 05/21/2024 2:27 PM ECG [...] ECG ORDERABLES Final Result Performing Organization Address [facility] de Phone Number [facility] * ECG 12-LEAD (05/19/2024 11:55 PM SANDING MACHINE [employer]) Narrative [facility] - 05/19/2024 11:55 PM SANDING M[employer]INE [employer] Deniz Huitron MD 05/19/2024 11:56 PM ECG 12 lead Date/Time: 05/19/2024 11:55 PM Performed by: Dneiz Huitron MD Authorized by: Casandra Lock MD [...] ECG ORDERABLES Final Result Performing Organization Address [facility] de Phone Number [facility] * XR Chest PA Lateral 2 Views (05/19/2024 10:34 PM SANDING MACHINE [employer]) Anatomical Region Laterality Modality Body, Chest N/A Computed Radiogr aphy 05/19/2024 10:4 3 PM [employer] Impressions 05/20/2024 9:03 AM [employer]ANDING MACHINE [employer] Comparison is made to 07/05/2023. Thoracic aorta [...] Collins Wills M.D. Narrative 05/20/2024 9:03 AM [employer]ING [employer] EXAMINATION: 2 view chest radiograph Procedure Note [...] CTA Chest Abdomen Pelvis (05/19/2024 10:20 PM SANDING MACHINE TENDER AUTOMATIC) Anatomical Region Laterality Modality Body N/A Computed Tomogra phy 05/19/2024 10:5 1 PM SANDING MACHINE TENDER AUTOMATIC Impressions 05/20/2024 9:06 AM SANDING MACHINE TENDER AUTOMATIC 1. Unchanged thoracoabdominal aortic dissection status post [...] Collins Wills M.D. Narrative 05/20/2024 9:06 AM SANDING MACHINE TENDER AUTOMATIC EXAMINATION: CT ANGIOGRAPHY OF THE CHEST, ABDOMEN [...] (baseline, 2hr, 4hr, 6hr) (05/19/2024 9:12 PM SANDING MACHINE TENDER AUTOMATIC) Pathologist [facility] Trop I hs 4 <=35 ng/L Comment: Interpretive Data For further hscTnI resources including the diagnostic algorithm and an aid in interpretation, copy and paste this link: https://bjhlab.testcatalog.org/show/[email or web address] Current Interpretive Data last revised 2019. Blood 05/19/2024 9:12 PM SANDING MACHINE TENDER AUTOMATIC 05/19/2024 9:28 PM SANDING MACHINE TENDER AUTOMATIC Cristobal Waldrop MD LAB BLOOD ORDERABLE S Final Result [facility] Department [place] [address] * eGFR (05/19/2024 9:12 PM SANDING MACHINE TENDER AUTOMATIC) eGFR 85 >=60 mL/min/1. 73 m2 Comment: [...] last reviewed 2021. Blood 05/19/2024 9:12 PM SANDING MACHINE TENDER AUTOMATIC 05/19/2024 9:28 PM SANDING MACHINE TENDER AUTOMATIC Cristobal Waldrop MD LAB BLOOD ORDERABLE S Final Result [facility] Department [place] [address] * (ABNORMAL) Differential, auto (05/19/2024 9:12 PM SANDING MACHINE TENDER AUTOMATIC) Neutrophil abs 7.6(H) 1.5 - 6.5 K/cumm Imm gran abs 0.1 0.0 - 0.1 K/cumm [facility] Lymphocyte abs 0.9 0.8 - 3.3 K/cumm [facility] Monocyte abs 0.5 0.2 - 0.8 K/cumm [facility] Eosinophil abs 0.0 0.0 - 0.5 K/cumm [facility] Basophil abs 0.0 0.0 - 0.1 K/cumm [facility] Neutrophil pct 84.3 % [facility] Comment: Interpretive Data Percent cell count reference ranges are not reported, since discordance with absolute values may lead to misinterpretation of CBC data. Current Interpretive Data was last revised on 2017. Imm gran pct 0.7 % [facility] Comment: Interpretive Data Percent cell count reference ranges are not reported, since discordance with absolute values may lead to misinterpretation of CBC data. Current Interpretive Data was last revised on 2017. Lymphocyte pct 9.4 % [facility] Comment: Interpretive Data Percent cell count reference ranges are not reported, since discordance with absolute values may lead to misinterpretation of CBC data. Current Interpretive Data was last revised on 2017. Monocyte pct 5.3 % [facility] Comment: Interpretive Data Percent cell count reference ranges are not reported, since discordance with absolute values may lead to misinterpretation of CBC data. Current Interpretive Data was last revised on 2017. Eosinophil pct 0.1 % [facility] Comment: Interpretive Data Percent cell count reference ranges are not reported, since discordance with absolute values may lead to misinterpretation of CBC data. Current Interpretive Data was last revised on 2017. Basophil pct 0.2 % [facility] Comment: Interpretive Data Percent cell count reference ranges are not reported, since discordance with absolute values may lead to misinterpretation of CBC data. Current Interpretive Data was last revised on 2017. Blood 05/19/2024 9:12 PM SANDING MACHINE TENDER AUTOMATIC 05/19/2024 9:28 PM SANDING MACHINE TENDER AUTOMATIC us Cristobal Waldrop MD LAB BLOOD ORDERABLE S Final Result [facility] Department [place] [address] * CBC with auto differential (05/19/2024 9:12 PM SANDING MACHINE TENDER AUTOMATIC) WBC 9.0 3.8 - 9.9 K/cumm Hgb 13.7 13.0 - 17.5 g/dL [facility] Hct 39.7 38.9 - 50.3 % [facility] Plt 293 150 - 400 K/cumm [facility] MPV 9.2 9.1 - 12.3 fL [facility] RBC 4.53 4.30 - 5.80 M/cumm [facility] MCV 87.6 81.3 - 96.4 fL [facility] MCH 30.2 27.1 - 33.3 pg [facility] MCHC 34.5 32.3 - 35.7 g/dL [facility] RDW CV 13.2 11.1 - 14.9 % [facility] RDW SD 42.5 35.7 - 48.1 fL [facility] NRBC abs 0.00 0.00 - 0.01 K/cumm [facility] Blood 05/19/2024 9:12 PM SANDING MACHINE TENDER AUTOMATIC 05/19/2024 9:28 PM SANDING MACHINE TENDER AUTOMATIC us Cristobal Waldrop MD LAB BLOOD ORDERABLE S Final Result Performing Organization Address [facility] de Phone Number [facility] [employer] [place] [address] * aPTT (05/19/2024 9:12 PM SANDING MACHINE TENDER AUTOMATIC) aPTT 34 28 - 38 sec Comment: Interpretive Data Heparin therapeutic range: 66.0 - 100.0 seconds. Range based on correlation with therapeutic heparin activity range of 0.3 - 0.7 Units/mL. Current interpretive data was last revised on 2023. Blood 05/19/2024 9:12 PM SANDING MACHINE TENDER AUTOMATIC 05/19/2024 9:32 PM SANDING MACHINE TENDER AUTOMATIC us Cristobal Waldrop MD LAB BLOOD ORDERABLE S Final Result Performing Organization Address [facility] de Phone Number [facility] [place] [address] * (ABNORMAL) Protime-INR (05/19/2024 9:12 PM SANDING MACHINE TENDER AUTOMATIC) PT 14.2(H) 9.7 - 13.0 sec INR 1.31(H) 0.90 - 1.20 [facility] Comment: Interpretive data Oral anticoagulant therapeutic ranges: Venous thromboembolism prophylaxis or treatment: 2.0-3.0 CARDIOLOGY Standard range: 2.0-3.0 High-intensity range: 2.5-3.5 Refer to indication-specific guidelines for appropriate target ranges for prosthetic heart valve replacement. Current interpretive data was last revised on 2019. Blood 05/19/2024 9:12 PM SANDING MACHINE TENDER AUTOMATIC 05/19/2024 9:32 PM SANDING MACHINE TENDER AUTOMATIC Cristobal Waldrop MD LAB BLOOD ORDERABLE S Final Result Performing Organization Address [facility] Co de Phone Number [facility] Department [place] [address] * Type and screen (05/19/2024 9:12 PM SANDING MACHINE TENDER AUTOMATIC) [facility] Ellen, indirect Negative ABO Rh A Positive [facility] Blood 05/19/2024 9:12 PM SANDING MACHINE TENDER AUTOMATIC 05/19/2024 9:22 PM SANDING MACHINE TENDER AUTOMATIC Narrative [facility] - 05/19/2024 10:07 PM SANDING MACHINE TENDER AUTOMATIC Has the patient had Daratumumab or Isatuximab in the past 6 months?->Unknown Cristobal Waldrop MD LAB BLOOD BANK TEST ORDERABLES Final Result Performing Organization Address [facility] Co de Phone Number [facility] [place] [address] * (ABNORMAL) Comprehensive metabolic panel (05/19/2024 9:12 PM SANDING MACHINE TENDER AUTOMATIC) [facility] Sodium 139 135 - 145 mmol/L Potassium, pl 3.9 3.3 - 4.9 mmol/L [facility] Chloride 100 97 - 110 mmol/L [facility] CO2 21(L) 22 - 32 mmol/L [facility] Anion gap 18(H) 2 - 15 mmol/L [facility] BUN 18 6 - 25 mg/dL [facility] Creatinine 1.17 0.80 - 1.30 mg/dL [facility] Glucose 108 70 - 199 mg/dL [facility] Comment: Interpretive Data Fasting glucose [...] Calcium 10.2 8.5 - 10.3 mg/dL [facility] Bilirubin, total 1.2 0.1 - 1.2 mg/dL [facility] Protein, pl 8.7(H) 6.5 - 8.5 g/dL [facility] Albumin 5.1(H) 3.5 - 5.0 g/dL [facility] Alk phos 105 40 - 130 Units/L [facility] ALT 23 7 - 55 Units/L [facility] AST 18 10 - 50 Units/L [facility] Blood 05/19/2024 9:12 PM SANDING MACHINE TENDER AUTOMATIC 05/19/2024 9:28 PM SANDING MACHINE TENDER AUTOMATIC us Cristobal Waldrop MD LAB BLOOD ORDERABLE S Final Result [facility] [place] [address] * Hepatitis C antibody Blood (09/06/2023 11:15 AM CDT) Hep C Ab Nonreactive Nonreactive Comment:Antibodies to HCV no t detected. Does NOT exclude the possibility of recent exposure to HCV. Current interpretive data was last revised on 22 Blood 09/06/2023 11:1 5 AM CDT 09/06/2023 11:34 AM CDT us Clyde Nelson MD LAB MICROBIOLOGY - GENERAL SHAUNA LOPEZ Edited Result - Final [facility] [place] [address] from Last 3 Months or Most Recently Relevant to Health Maintenance Insurance [employer] [facility] [employer] [facility] Advance Directives For more information, please contact: [phone] * Full Code (Latest Code Status on [...] Meron Tucker Health Care Agent Care Teams Stained Glass Glazier Relationship Specialty Start Date End Date Ronak Painting PA [address] [place] [address] PCP - General Physician Assurance Senior Manager Insurance 06/14/24 Leo Manzano MD [id number] [place] [address] Surgeon Vascular Surgery 05/16/23
--- NOTE | 2024-07-08 11:43 | ECG_ITS ---
Test Date: 2024-07-08 11:49:34 Measurements Intervals [place] Rate: 76 P: 41 SC: 148 QRS: -7 QRSD: 99 T: 3 QT: 392 QTc: 442 Interpretive Statements SINUS RHYTHM VOLTAGE CRITERIA FOR LVH NONSPECIFIC T-WAVE ABNORMALITY- ANTEROLAT/INF LEADS BASELINE ARTIFACT- I, II, III, AVR, AVL, V4-V5 BORDERLINE ECG No previous ECG available for comparison Electronically Signed On 07-08-2024 14:29:17 FINAL OPERATIONS TECHNICIAN by Saud Grant D.O.
--- NOTE | 2024-07-08 11:51 | PC.NURSE ---
pt given urinal for urine specimen
[2024-07-08] MEDS: SODIUM CHLORIDE 0.9% IV 1,000 ML 999 ML IV CONT ×2 (11:57→13:26)
[2024-07-08] MEDS: ONDANSETRON INJ 4 MG/2 ML VIAL IV PUSH (11:57)
[2024-07-08] MEDS: MORPHINE SULFATE (*CRX) 4 MG/ML INJ IV PUSH (11:59)
[2024-07-08 12:12] LABS: Basophils Absolute Auto 0.01 K/mm3 (0.00-0.10); Basophils Percent Auto 0.2 % (0.0-1.0); Eosinophils Absolute Auto 0.01 K/mm3 (0.02-0.50); Eosinophils Percent Auto 0.2 % (1.0-6.0); Hematocrit 38.7 % (40.0-54.0); Hemoglobin 12.4 g/dL (14.0-18.0); Immature Granulocyte Absolute 0.03 K/mm3 (0.00-0.00); Immature Granulocyte Percent A 0.5 % (0.0-0.0); Lymphocytes Absolute Auto 1.31 K/mm3 (1.10-4.50); Lymphocytes Percent Auto 20.6 % (18.0-42.0); Mean Corpuscular Hemoglobin 29.8 pg (27.0-31.0); Mean Platelet Volume 8.3 fl (8.7-11.0); Monocytes Absolute Auto 0.48 K/mm3 (0.10-0.90); Monocytes Percent Auto 7.6 % (2.0-11.0); Neutrophils Absolute Auto 4.51 K/mm3 (1.70-7.20); Neutrophils Percent Auto 70.9 % (50.0-70.0); Platelet Count Result 254 K/mm3 (150-420); Red Blood Count 4.16 M/mm3 (4.70-6.10); White Blood Count 6.4 K/mm3 (4.8-10.8)
--- OUTSIDE RECORDS SUMMARY | 2024-07-08 12:13 | XMS_ITS | Encounter Summary ---
Author Organization [facility] Address [address] [place] [address] Phone Care Team Providers Care Medical Laboratory Specialist Name Role Phone Leo Manzano MD Unavailable [phone] Carl Strickland MD Primary Care Provider Ronak Painting Primary Care Provider [phone] Encounter Details Date Type Department Care Team [...] Recorded In the past 12 months has [employer], gas, oil, or water [employer] threatened to shut off services in your [...] often do you attend roman catholic or spiritism serv ices? 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
--- OUTSIDE RECORDS SUMMARY | 2024-07-08 12:14 | XMS_ITS | Clinical Summary ---
Author Organization [facility] Address [address] [place] [address] Care Team Providers Care Cloth Shrinking Machine Operator Helper Name Role Phone Leo Manzano MD Unavailable [phone] Ronak Painting Primary Care Provider [phone] Allergies Active Allergy Reactions Criticality Noted Date [...] line Assessment & Plan (06/24/2023 12:04 PM SENIOR PACKAGING ENGINEER): - CT without discitis or osteomyelitis on 06/13 - MRI 06/13 also without discitis or osteomyelitis - no narcotic pain medications are required from vascular surgery perspective - Consult pain management team Pseudoaneurysm following procedure ([facility]) Assessment & Plan (06/24/2023 10:40 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): - s/p vascular access - Q4 N/V checks - no current surgical intervention - no activity restrictions, OOB/ ambulate Infrarenal abdominal aortic aneurysm, without ru pture 06/13/2023 Assessment & Plan (06/24/2023 10:41 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): s/p TEVAR on 06/05/23 (graft terminates above celiac take off) 06/11 discharged home; 06/13 Re admitted for worsening back pain, HTN, and subjective fever/chills. - CT 06/13 shows no change in aneurysm, no stent migration, no increase in false lumen perfusion - non operative Polysubstance abuse ([facility]) 06/10/2023 Moderate malnutrition ([facility]) 06/09/2023 Dissection of abdominal aorta ([facility]) 06/03/19 Urinary retention 05/16/2023 Assessment & Plan (05/16/2023 10:44 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): Patient with urinary retention requiring straight cath X1 05/15, now voiding without any issues. - Continue Flomax. - Patient requests urology follow up, referral placed. Epistaxis 05/13/2023 Assessment & Plan (05/13/2023 12:42 PM SENIOR PACKAGING ENGINEER): Significant nose bleed in the OR requiring intra-op ENT c/s. DL performed, no other sources of bleeding visualized. ACT post protamine 149. - ENT following - ocean spray tid - no other s/s bleeding Pneumonia 05/13/2023 Assessment & Plan (05/13/2023 12:43 PM SENIOR PACKAGING ENGINEER): Tracheal aspirate 05/05 with Haemophilus Inf - susana(05/04 - 05/10), linezolid (05/04-05/06) HTN (hypertension) 05/13/2023 Assessment & Plan (05/28/2024 8:41 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): BP well controlled. - continue home amlodipine [...] needed Assessment & Plan (06/24/2023 10:41 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): Difficult to control Htn. Dr. Abarca following - Continue amlodipine, lisinopril, coreg, hydralazine - SBP goal 120-140 - VS q 4 hrs and prn Assessment & Plan (06/21/2023 7:57 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): BP stable at present. Recommend discontinuation of the diltiazem and continue amlodipine (as opposed to giving two calcium channel blockers) Assessment & Plan (06/20/2023 8:33 PM SENIOR PACKAGING ENGINEER): BP improving. Recommend continue medications and follow up bp, except recommend discontinuation of the diltiazem as he is already on a calcium channel louie, amlodipine Assessment & Plan (06/18/2023 7:59 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): Patient with continued hypertension. Blood pressure in the right arm levels are improved now in the 130s and 140s. Recommend consideration for adjustment of medications as follows. 1. Add spironolactone 25 mg a day 2. Consider adding clonidine 0.1 mg twice a day Assessment & Plan (06/11/2023 7:50 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): Patient hypertensive. Recommend resuming hydralazine 25 mg 3 times a day. Continue the amlodipine and carvedilol. Follow-up blood pressure. The patient should have follow-up blood pressure when he leaves the hospital as well. Assessment & Plan (06/10/2023 3:48 PM SENIOR PACKAGING ENGINEER): Goal systolic BP 140-180 for one month [...] status Assessment & Plan (06/09/2023 10:54 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): Blood pressure well controlled at present. Medicines are being adjusted. Currently on carvedilol and hydralazine. A want to transition to amlodipine 5 mg a day to wean hydralazine, as tolerated, as 3 times a day medication can be difficult long-term Assessment & Plan (05/13/2023 12:49 PM SENIOR PACKAGING ENGINEER): Hx of uncontrolled HTN, non-compliant to medications. [...] time Assessment & Plan (06/11/2023 7:50 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): Clinically stable. Renal function stable. Blood pressure improved We will recommend genetic testing as an outpatient Assessment & Plan (06/10/2023 3:48 PM SENIOR PACKAGING ENGINEER): Presents with abdominal pain and concern for progression of dissection on CT - 06/05/23: OR s/p TEVAR extension and dissection stent placement - BP management per HTN - pain control - Q4 NV checks, Q2 VS - lovenox DVT ppx - He will f/u with Dr. Abarca as outpatient for genetics testing. Assessment & Plan (06/09/2023 10:54 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): Clinically stable. Renal function stable. Blood pressure improved We will recommend genetic testing as an outpatient Assessment & Plan (05/16/2023 10:45 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): Patient presented on 05/01 with acute Chest [...] 05/01/2023 Assessment & Plan (05/29/2024 7:45 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): 34 y/o M with hx of symptomatic Type B aortic dissection requiring TBE and subsequent extension with TEVAR/dissection stents presents as OSH transfer for significant abdominal pain. No concern for mesenteric ischemia. - c/w impulse control - regular diet - transitioned to oral anti-hypertensive - pain management following. Now off lido drip and dilaudid FILBERT GROWER. Dilaudid discontinued 05/28. Pain signed off. Assessment & Plan (10/03/2023 2:00 PM CDT): Follows with Dr Abarca Cont antihypertensives Assessment & Plan (06/18/2023 8:00 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): Aortic imaging stable on recent CT scan. Continue blood pressure control. Assessment & Plan (05/02/2023 2:02 PM SENIOR PACKAGING ENGINEER): 32y/o male with uncontrolled HTN who presented to an OSH ER with acute onset shortness of breath, chest pain and back pain. 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 He was transferred to [facility] for further evaluation and treatment. Here, he [...] All feel these findings not to be enrollment representative of a type a dissection, therefore [...] Type Department Care Team Description 07/02/2024 Telephone [facility] [address] [place] [address] Adrianne Adams MD PhD PMC Preprocedure 06/27/2024 1:00 PM SENIOR PACKAGING ENGINEER Office Visit [facility] Nephrology [address] [facility] 5th [place] [address] [place] [address] ANGI (acute kidney injury) (HCC) (Primary Dx) 06/20/2024 7:27 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 - 06/20/2024 11:59 PM SENIOR PACKAGING ENGINEER Hospital Encounter [facility] [place] [facility] [address] [facility] [address] [place] [address] Jeremie Macias MD Yoshida, [place], MD PhD Sacroiliitis (HCC) (Primary Dx); Spondylosis of lumbar region without myelopathy or radiculopathy Discharge Disposition: Discharge to home or self care 06/08/2024 Telephone [facility] Cardiology [address] [facility] 8th [place] [address] [place] [phone] Joaquín Abarca MD overdue orders 05/25/[address] [phone] Essie Singh RN 05/23/2024 7:45 PM SENIOR PACKAGING ENGINEER - 05/29/2024 10:36 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 Hospital Encounter [address] [phone] Gonzalez Lamar DO Ohman, John Westley, MD Abdominal pain (Primary Dx) Discharge Disposition: Discharge to home or self care 05/21/2024 4:17 PM SENIOR PACKAGING ENGINEER - 05/21/2024 8:27 PM SENIOR PACKAGING ENGINEER Emergency [facility] Emergency Department [address] [place] [phone] Marcus Amaya MD Nausea and vomiting, unspecified vomiting type (Primary Dx) Discharge Disposition: Discharge to home or self care 05/19/2024 9:40 PM SENIOR PACKAGING ENGINEER - 05/20/2024 1:34 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 Emergency [facility] Emergency Department [address] [place] [phone] Casandra Lock MD Renz, Nicholas Robert, MD Abdominal pain (Primary Dx); Chronic bilateral low back pain without sciatica; Abdominal aortic aneurysm dissection (HCC) Discharge Disposition: Discharge to home or self care 05/16/2024 2:39 PM SENIOR PACKAGING ENGINEER - 05/16/2024 11:59 PM SENIOR PACKAGING ENGINEER Hospital Encounter [facility] [address] [facility] [address] [place] [address] Adrianne Adams MD PhD Sacroiliitis (HCC) (Primary Dx) Discharge Disposition: Discharge to home or self care 04/24/2024 Orders Only [facility] Nephrology [address] [facility] [address] [place] [address] [place] [address] Miguel Dominguez MD ANGI (acute kidney injury) [...] = 0.6 oz pur e alcohol) [facility] Utilities Answer Date Recorded In the [...] you attend chur ch or protestant services? Never 05/24/2024 Do [...] care facility (including now)? Patient declined 10/02/2023 Housing Stability [...] time in the past 12 m [facility], were you homeless or living in a [place] care facility (including now)? No 05/24/2024 Personal Safety Answer Date Recorded Have you ever been in or are you currently in a harmful physical or emotional relationship or is someone making you feel afraid or unsafe? Denies 05/23/2024 Sex and Gender Information Value Date Recorded Sex Assigned at Not on file Legal Sex Male 3:42 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 Gender Identity Not on file Sexual Orientation Straight 06/12/2023 11 :43 PM SENIOR PACKAGING ENGINEER Obstetrics History Last Filed Vital Signs Vital Sign Reading Time Taken Comments Blood Pressure 101/67 06/27/2024 12:49 PM SENIOR PACKAGING ENGINEER Pulse 83 06/27/2024 12:49 PM SENIOR PACKAGING ENGINEER Temperature 36.6 C (97.8 F) 06/20/2024 7:35 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 Respiratory Rate 15 06/20/2024 8:49 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 Oxygen Saturation 96% 06/20/2024 8:49 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 Inhaled Oxygen Concentration - - Weight 95.9 kg (211 lb 6.4 oz) 06/27/2024 12:49 PM SENIOR PACKAGING ENGINEER Height 175.3 cm (5' 9 ) 06/27/2024 12:49 PM SENIOR PACKAGING ENGINEER Body Mass Index 31.22 06/27/2024 12:49 PM SENIOR PACKAGING ENGINEER Plan of Treatment Health Maintenance Due Date [...] Chronic Care Management No change(06/20 7:42 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) No Rita Landa, BRIA Note: Problem: Chronic Pain Goals: 1. Minimize further functional decline 2. Maximize quality of life 3. Control pain Strategies: - Activity/exercise program recommendation - Conservative stepwise pain medicine strategy with multi-disciplinary approach - Recommend healthy lifestyle strategies and compensatory methods as needed Medical Devices Implanted Type Area Medic Technician Device Identifier Shelf Expiration Date Model / Serial / Lot [employer] Stent Graft Aortic Covered Tag [id number] Eptfe Nitinol [id number] - [id number] - [id number] Implanted:Qty : 1 on 05/02/2023 by Leo Manzano MD at [facility] Graft N/A: Aorta [employer] [id number] 12/07/2025 [id number] / [id number] / [employer] Stent Graft Thoracic Side Branch Tag [id number] Eptfe Nitinol [id number] - [id number] - [id number] Implanted:Qty : 1 on 05/02/2023 by Leo Manzano MD at [facility] Stent Left: Subclavian [employer] [id number] 06/27/2025 [id number] / [id number] / [employer] Graft Stent Rapelje Tag L20cm Od37mm Thoracic Active Control [id number] - [id number] - [id number] Implanted:Qty : 1 on 06/05/2023 by Nikhil Samuel MD at [facility] Stent N/A: Descending Thoracic Aorta [employer] [id number] 04/12/2024 [id number] / [id number] / [employer] Zenith 36mm 20-30mm 16mm 180mm 9 Dissection Introducer Sheath [id number] - [id number] Implanted:Qty : 1 on 06/05/2023 by Nikhil Samuel MD at [facility] Stent N/A: Descending Thoracic Aorta [employer] [id number] 12/20/2025 [id number] / / [id number] [employer] Device Clsr Perclose Prostyle Sut-Mediatd Closure-Repai r Sys 16423-75 - [id number] Implanted:Qty : 3 on 05/02/2023 by Leo Manzano MD at [facility] Vascular Closure Device Left: Common Femoral Artery [employer] [id number] 09/26/2024 78150-00 / / [id number] Description:Same lot number [employer] Device Clsr Perclose Prostyle Sut-Mediatd Closure-Repai r Sys 48064-66 - [id number] Implanted:Qty : 1 on 06/05/2023 by Nikhil Samuel MD at [facility] Left: Groin [employer] [id number] 12/27/2024 [id number] / / [id number] [employer] Device Clsr Perclose Prostyle Sut-Mediatd Closure-Repai r Sys 54662-31 - [id number] Implanted:Qty : 1 on 06/05/2023 by Nikhil Samuel MD at [facility] Left: Groin [employer] [id number] 12/27/2024 10160-48 / / [id number] [employer] Ron Contour 6fr 26cm Large Inner Lumen Low Profile Bladder Ag Taper Latex Free 180-223 - [id number] Implanted:Qty : 1 on 09/27/2023 by Marcus Glass MD at [facility] Right: Ureter [employer] 05/16/2026 [id number] 230 / / [id number] [employer] Ron Contour 6fr 26cm Large Inner Lumen Low Profile Bladder Ag Taper Latex Free 180-223 - [id number] Implanted:Qty : 1 on 10/04/2023 by Otoniel Landa MD at [facility] Right: Ureter [employer] Ron 05/16/2026 [id number] / / [id number] Explanted Type Area Medic Technician Device Identifier Shelf Expiration Date Model / Serial / Lot [employer] Inlay [place] 6fr 28cm Pusher Fluoro Marker Atraumatic Insertion Latex Free [id number] - [id number] Implanted:Qty: 1 on 07/04/2023 by Marcus Gamboa MD at [facility] Explanted:Qty: 1 on 07/14/2023 by Stacia Su MD Stent Left: Ureter [employer] [id number] 04/14/2027 [id number] / / [id number] Procedures Procedure Name Priority Date/Time Associated Diagnosis Comments PAIN MGMT IMAGING SI JOINT BILATERAL ARTHROGRPHY Schedule Routine, Read Routine (OP Routine) 06/20/2024 8:41 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 Sacroiliitis (HCC) EGFR Timed 05/28/2024 3:36 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 BASIC METABOLIC PANEL Timed 05/28/2024 3:36 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 CBC WITHOUT DIFFERENTIAL Timed 05/28/2024 3:36 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 LIDOCAINE LEVEL Timed 05/28/2024 3:36 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 LIDOCAINE LEVEL Timed 05/27/2024 3:29 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 TYPE AND SCREEN Timed 05/27/2024 3:29 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 EGFR Routine 05/26/2024 4:38 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 LIDOCAINE LEVEL Timed 05/26/2024 4:38 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 BASIC METABOLIC PANEL Routine 05/26/2024 4:38 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 CBC WITHOUT DIFFERENTIAL Routine 05/26/2024 4:38 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 EGFR Routine 05/25/2024 4:20 PM SENIOR PACKAGING ENGINEER BASIC METABOLIC PANEL Routine 05/25/2024 4:20 PM SENIOR PACKAGING ENGINEER CBC WITHOUT DIFFERENTIAL Routine 05/25/2024 4:20 PM SENIOR PACKAGING ENGINEER LIDOCAINE LEVEL Routine 05/25/2024 4:20 PM SENIOR PACKAGING ENGINEER CRITICAL CARE Routine 05/25/2024 8:12 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 Abdominal pain POCT GLUCOSE DEVICE Routine 05/25/2024 4 :16 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 POCT GLUCOSE DEVICE Routine 05/24/2024 1 1:36 PM SENIOR PACKAGING ENGINEER POCT GLUCOSE DEVICE Routine 05/24/2024 8 :50 PM SENIOR PACKAGING ENGINEER CRITICAL CARE Routine 05/24/2024 8:47 PM SENIOR PACKAGING ENGINEER Abdominal pain EGFR Routine 05/24/2024 5:43 PM SENIOR PACKAGING ENGINEER DIFFERENTIAL AUTO Routine 05/24/2024 5:4 3 PM SENIOR PACKAGING ENGINEER LACTATE, WHOLE BLOOD STAT 05/24/2024 5:43 PM SENIOR PACKAGING ENGINEER AMYLASE Routine 05/24/2024 5:43 PM SENIOR PACKAGING ENGINEER PHOSPHORUS Routine 05/24/2024 5:43 PM SENIOR PACKAGING ENGINEER MAGNESIUM Routine 05/24/2024 5:43 PM SENIOR PACKAGING ENGINEER COMPREHENSIVE METABOLIC PANEL Routine 05/24/2024 5:43 PM SENIOR PACKAGING ENGINEER CBC WITH AUTO DIFFERENTIAL Routine 05/24/2024 5:43 PM SENIOR PACKAGING ENGINEER POCT GLUCOSE DEVICE Routine 05/24/2024 3 :52 PM SENIOR PACKAGING ENGINEER POCT GLUCOSE DEVICE Routine 05/24/2024 1 1:06 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 POCT GLUCOSE DEVICE Routine 05/24/2024 7 :46 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 CRITICAL CARE Routine 05/24/2024 6:15 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 Abdominal pain POCT GLUCOSE DEVICE Routine 05/24/2024 3 :23 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 POCT GLUCOSE DEVICE Routine 05/23/2024 1 1:04 PM SENIOR PACKAGING ENGINEER EGFR STAT 05/23/2024 8:33 PM SENIOR PACKAGING ENGINEER DIFFERENTIAL AUTO STAT 05/23/2024 8:3 3 PM SENIOR PACKAGING ENGINEER PROTIME-INR STAT 05/23/2024 8:33 PM SENIOR PACKAGING ENGINEER APTT STAT 05/23/2024 8:33 PM SENIOR PACKAGING ENGINEER TYPE AND SCREEN Timed 05/23/2024 8:33 PM SENIOR PACKAGING ENGINEER CBC WITH AUTO DIFFERENTIAL STAT 05/23/2024 8:33 PM SENIOR PACKAGING ENGINEER CREATINE KINASE (CK), TOTAL STAT 05/23/2024 8:33 PM SENIOR PACKAGING ENGINEER LACTATE STAT 05/23/2024 8:33 PM SENIOR PACKAGING ENGINEER CALCIUM, IONIZED STAT 05/23/2024 8:33 PM SENIOR PACKAGING ENGINEER PHOSPHORUS STAT 05/23/2024 8:33 PM SENIOR PACKAGING ENGINEER MAGNESIUM STAT 05/23/2024 8:33 PM SENIOR PACKAGING ENGINEER COMPREHENSIVE METABOLIC PANEL STAT 05/23/2024 8:[address] BODY OUTSIDE REFERENCE Routine 05/23/2024 8:[address] BODY OUTSIDE CONSULT Routine 05/23/2024 8:18 PM SENIOR PACKAGING ENGINEER POCT GLUCOSE DEVICE Routine 05/23/2024 7 :47 PM SENIOR PACKAGING ENGINEER POCT RAPID HIV ANTIBODY COMMUNITY SCREENING-PAPA ELIGIBLE Routine 05/21/2024 7:35 PM SENIOR PACKAGING ENGINEER OXYCODONE CONFIRMATION, URINE Routine 05/21/2024 5:34 PM SENIOR PACKAGING ENGINEER FENTANYL CONFIRMATION, MS URINE Routine 05/21/2024 5:34 PM SENIOR PACKAGING ENGINEER AMPHETAMINE, URINE, CONFIRMATION Routine 05/21/2024 5:34 PM SENIOR PACKAGING ENGINEER URINALYSIS, MICROSCOPIC ONLY STAT 05/21/2024 5:34 PM SENIOR PACKAGING ENGINEER DRUGS OF ABUSE SCREEN, URINE WITH REFLEX CONFIRMATION Routine 05/21/2024 5:34 PM SENIOR PACKAGING ENGINEER URINALYSIS AND REFLEX TO MICROSCOPIC STAT 05/21/2024 5:34 PM SENIOR PACKAGING ENGINEER SEPSIS LACTATE WITH REFLEX STAT 05/21/2024 4:33 PM SENIOR PACKAGING ENGINEER EGFR STAT 05/21/2024 3:41 PM SENIOR PACKAGING ENGINEER DIFFERENTIAL AUTO STAT 05/21/2024 3:4 1 PM SENIOR PACKAGING ENGINEER LIPASE STAT 05/21/2024 3:41 PM SENIOR PACKAGING ENGINEER COMPREHENSIVE METABOLIC PANEL STAT 05/21/2024 3:41 PM SENIOR PACKAGING ENGINEER CBC WITH AUTO DIFFERENTIAL STAT 05/21/2024 3:41 PM SENIOR PACKAGING ENGINEER ECG 12-LEAD STAT 05/21/2024 2:24 PM SENIOR PACKAGING ENGINEER ECG 12-LEAD STAT 05/19/2024 11:55 PM SENIOR PACKAGING ENGINEER XR CHEST PA LATERAL 2 VIEWS ED 05/19/2024 10:34 PM SENIOR PACKAGING ENGINEER CTA CHEST ABDOMEN PELVIS ED 05/19/2024 10:20 PM SENIOR PACKAGING ENGINEER EGFR STAT 05/19/2024 9:12 PM SENIOR PACKAGING ENGINEER DIFFERENTIAL AUTO Timed 05/19/2024 9:1 2 PM SENIOR PACKAGING ENGINEER TROPONIN I HIGH-SENSITIVITY SERIES (BASELINE, 2HR, 4HR, 6HR) STAT 05/19/2024 9:12 PM SENIOR PACKAGING ENGINEER TYPE AND SCREEN STAT 05/19/2024 9:12 PM SENIOR PACKAGING ENGINEER APTT STAT 05/19/2024 9:12 PM SENIOR PACKAGING ENGINEER PROTIME-INR STAT 05/19/2024 9:12 PM SENIOR PACKAGING ENGINEER COMPREHENSIVE METABOLIC PANEL STAT 05/19/2024 9:12 PM SENIOR PACKAGING ENGINEER CBC WITH AUTO DIFFERENTIAL Timed 05/19/2024 9:12 PM SENIOR PACKAGING ENGINEER HEPATITIS C ANTIBODY Routine 09/06/2023 11:15 AM CDT from Last 3 Months or Most Recently Relevant to Health Maintenance Results * Imaging SI Joint Injection Bilateral ([id number]) (06/20/2024 8:41 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) Narrative [facility] - 06/20/2024 8:41 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 The images from this study are not interpreted by Radiology. Please refer to the physician's procedure / OR operative note. us Adrianne Adams MD PhD IMG PAIN MGMT PROCEDURE S Final Result Performing Organization Address City/[facility]/ZIP Co de Phone Number [facility] * eGFR (05/28/2024 3:36 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) eGFR >90 >=60 mL/min/1. 73 m2 Comment: [...] last reviewed 2021. Blood 05/28/2024 3:36 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 05/28/2024 4:30 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 us Leo Manzano MD LAB BLOOD ORDERABLES Final Result [facility] [place] [address] * (ABNORMAL) Lidocaine level (05/28/2024 3:36 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) [facility] Lidocaine (Xylocaine) <1.0(L) 1.5 - 5.0 mcg/mL Blood 05/28/2024 3:36 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 05/28/2024 4:30 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 us Gonzalez Lamar DO LAB BLOOD ORDERABLES Fin al Result Performing Organization Address City/[facility]/ZIP Co de Phone Number [facility] [place] [address] * (ABNORMAL) CBC without differential (05/28/2024 3:36 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) [facility] WBC 5.0 3.8 - 9.9 K/cumm Hgb 11.7(L) 13.0 - 17.5 g/dL [facility] Hct 35.3(L) 38.9 - 50.3 % [facility] Plt 240 150 - 400 K/cumm [facility] MPV 9.5 9.1 - 12.3 fL [facility] RBC 3.82(L) 4.30 - 5.80 M/cumm [facility] MCV 92.4 81.3 - 96.4 fL [facility] MCH 30.6 27.1 - 33.3 pg [facility] MCHC 33.1 32.3 - 35.7 g/dL [facility] RDW CV 13.3 11.1 - 14.9 % [facility] RDW SD 45.1 35.7 - 48.1 fL [facility] NRBC abs 0.00 0.00 - 0.01 K/cumm [facility] Blood 05/28/2024 3:36 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 05/28/2024 4:32 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 us Leo Manzano MD LAB BLOOD ORDERABLES Final Result Performing Organization Address City/[facility]/ZIP Co de Phone Number [facility] [place] [address] * Basic metabolic panel (05/28/2024 3:36 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) Pathologist [facility] Sodium 140 135 - 145 mmol/L Potassium, pl 4.0 3.3 - 4.9 mmol/L [facility] Chloride 103 97 - 110 mmol/L [facility] CO2 25 22 - 32 mmol/L [facility] Anion gap 12 2 - 15 mmol/L [facility] BUN 18 6 - 25 mg/dL [facility] Creatinine 1.10 0.80 - 1.30 mg/dL [facility] Glucose 85 70 - 199 mg/dL [facility] Comment: Interpretive Data Fasting glucose >/= 126 [...] Calcium 9.1 8.5 - 10.3 mg/dL [facility] Blood 05/28/2024 3:36 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 05/28/2024 4:30 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 Leo Manzano MD LAB BLOOD ORDERABLES Final Result [facility] Department [place] [address] * Lidocaine level (05/27/2024 3:29 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) [facility] Lidocaine (Xylocaine) 1.5 1.5 - 5.0 mcg/mL Blood 05/27/2024 3:29 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 05/27/2024 4:21 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 Gonzalez Lamar DO LAB BLOOD ORDERABLES Fin al Result Performing Organization Address City/[facility]/ZIP Co de Phone Number [facility] [place] [address] * Type and screen (05/27/2024 3:29 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) Ellen, indirect Negative ABO Rh A Positive [facility] Blood 05/27/2024 3:29 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 05/27/2024 4:33 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 Narrative [facility] - 05/27/2024 5:33 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 Has the patient had Daratumumab or Isatuximab in the past 6 months?->Unknown Moriah Amin BARKER OPERATOR LAB BLOOD BANK TEST ORDERABLE S Final Result Performing Organization Address [facility] Co de Phone Number [facility] [place] [address] * eGFR (05/26/2024 4:38 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) eGFR 86 >=60 mL/min/1. 73 m2 Comment: [...] last reviewed 2021. Blood 05/26/2024 4:38 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 05/26/2024 5:46 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 Moriah Amin BARKER OPERATOR LAB BLOOD ORDERABLES Final Re sult [facility] Department [place] [address] * Lidocaine level (05/26/2024 4:38 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) [facility] Lidocaine (Xylocaine) 1.8 1.5 - 5.0 mcg/mL Blood 05/26/2024 4:38 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 05/26/2024 5:46 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 Gonzalez Lamar DO LAB BLOOD ORDERABLES Fin al Result Performing Organization Address [facility] Co de Phone Number [facility] [place] [address] * (ABNORMAL) CBC without differential (05/26/2024 4:38 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) [facility] WBC 5.5 3.8 - 9.9 K/cumm Hgb 11.5(L) 13.0 - 17.5 g/dL [facility] Hct 34.0(L) 38.9 - 50.3 % [facility] Plt 222 150 - 400 K/cumm [facility] MPV 9.7 9.1 - 12.3 fL [facility] RBC 3.67(L) 4.30 - 5.80 M/cumm [facility] MCV 92.6 81.3 - 96.4 fL [facility] MCH 31.3 27.1 - 33.3 pg [facility] MCHC 33.8 32.3 - 35.7 g/dL [facility] RDW CV 13.3 11.1 - 14.9 % [facility] RDW SD 45.5 35.7 - 48.1 fL [facility] NRBC abs 0.00 0.00 - 0.01 K/cumm [facility] Blood 05/26/2024 4:38 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 05/26/2024 5:46 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 Moriah Amin 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 OPERATOR LAB BLOOD ORDERABLES Final Re sult Performing Organization Address City/[facility] Co de Phone Number [facility] Department [place] [address] * Basic metabolic panel (05/26/2024 4:38 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) Pathologist [facility] [place] Sodium 141 135 - 145 mmol/L Potassium, pl 3.9 3.3 - 4.9 mmol/L [facility] Chloride 107 97 - 110 mmol/L [facility] CO2 26 22 - 32 mmol/L [facility] Anion gap 8 2 - 15 mmol/L [facility] BUN 15 6 - 25 mg/dL [facility] Creatinine 1.16 0.80 - 1.30 mg/dL [facility] Glucose 78 70 - 199 mg/dL [facility] Comment: Interpretive Data Fasting glucose >/= 126 [...] Calcium 8.6 8.5 - 10.3 mg/dL [facility] Blood 05/26/2024 4:38 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 05/26/2024 5:46 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 Moriah Amin BARKER OPERATOR LAB BLOOD ORDERABLES Final Re sult Performing Organization Address [facility]/ZIP Co de Phone Number [facility] Department [place] [address] * eGFR (05/25/2024 4:20 PM SENIOR PACKAGING ENGINEER) Pathologist [facility] eGFR >90 >=60 mL/min/1. 73 m2 Comment: [...] last reviewed 2021. Blood 05/25/2024 4:20 PM SENIOR PACKAGING ENGINEER 05/25/2024 4:33 PM SENIOR PACKAGING ENGINEER Moriah Amin NP LAB BLOOD ORDERABLES Final Re sult Performing Organization Address City/[facility] Co de Phone Number [facility] [place] [address] * Lidocaine level (05/25/2024 4:20 PM SENIOR PACKAGING ENGINEER) [facility] Lidocaine (Xylocaine) 2.1 1.5 - 5.0 mcg/mL Blood 05/25/2024 4:20 PM SENIOR PACKAGING ENGINEER 05/25/2024 4:33 PM SENIOR PACKAGING ENGINEER Narrative [facility] - 05/25/2024 5:02 PM SENIOR PACKAGING ENGINEER Draw 24 hours after infusion started. Moriah Amin BARKER OPERATOR LAB BLOOD ORDERABLES Final Re sult [facility] [place] [address] * (ABNORMAL) CBC without differential (05/25/2024 4:20 PM SENIOR PACKAGING ENGINEER) [facility] WBC 6.1 3.8 - 9.9 K/cumm Hgb 12.1(L) 13.0 - 17.5 g/dL [facility] Hct 36.3(L) 38.9 - 50.3 % [facility] Plt 246 150 - 400 K/cumm [facility] MPV 9.6 9.1 - 12.3 fL [facility] RBC 4.03(L) 4.30 - 5.80 M/cumm [facility] MCV 90.1 81.3 - 96.4 fL [facility] MCH 30.0 27.1 - 33.3 pg [facility] MCHC 33.3 32.3 - 35.7 g/dL [facility] RDW CV 13.3 11.1 - 14.9 % [facility] RDW SD 44.0 35.7 - 48.1 fL [facility] NRBC abs 0.00 0.00 - 0.01 K/cumm [facility] Blood 05/25/2024 4:20 PM SENIOR PACKAGING ENGINEER 05/25/2024 4:33 PM SENIOR PACKAGING ENGINEER Moriah Amin NP LAB BLOOD ORDERABLES Final Re sult [facility] Department [place] [address] * Basic metabolic panel (05/25/2024 4:20 PM SENIOR PACKAGING ENGINEER) [facility] Sodium 140 135 - 145 mmol/L Potassium, pl 3.9 3.3 - 4.9 mmol/L [facility] Chloride 106 97 - 110 mmol/L [facility] CO2 25 22 - 32 mmol/L [facility] Anion gap 9 2 - 15 mmol/L [facility] BUN 10 6 - 25 mg/dL [facility] Creatinine 0.92 0.80 - 1.30 mg/dL [facility] Glucose 98 70 - 199 mg/dL [facility] Comment: Interpretive Data Fasting glucose >/= 126 [...] Calcium 8.9 8.5 - 10.3 mg/dL [facility] Blood 05/25/2024 4:20 PM SENIOR PACKAGING ENGINEER 05/25/2024 4:33 PM SENIOR PACKAGING ENGINEER Moriah Amin BARKER OPERATOR LAB BLOOD ORDERABLES Final Re sult [facility] Department [place] [address] * Critical Care (05/25/2024 8:12 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) Narrative Rafiq Rodriguez MD - 05/25/2024 8:12 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 Moriah Amin NP 05/25/2024 3:35 PM Critical [...] plan with the patient's team and other medical/residential solar consultant staff. This time was in addition to and separate from care provided by other practitioners on this day of service. us Moriah Amin NP IN CLINIC/BEDSIDE ORDERABLES Final Result * POCT glucose (05/25/2024 4:16 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) Glucose, POC 117 70 - 199 mg/dL Blood 05/25/2024 4:16 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 05/25/2024 4:16 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 Gonzalez Pinaaamir DO LAB POCT ORDERABLES - DE VICE Final Result Performing Organization Address [facility] Co mo Phone Number [facility] [address] * POCT glucose (05/24/2024 11:36 PM SENIOR PACKAGING ENGINEER) Glucose, POC 116 70 - 199 mg/dL Blood 05/24/2024 11:3 6 PM SENIOR PACKAGING ENGINEER 05/24/2024 11:36 PM SENIOR PACKAGING ENGINEER Gonzalez Lamar DO LAB POCT ORDERABLES - DE VICE Final Result Performing Organization Address [facility] [place] [address] * POCT glucose (05/24/2024 8:50 PM SENIOR PACKAGING ENGINEER) Glucose, POC 123 70 - 199 mg/dL Blood 05/24/2024 8:50 PM SENIOR PACKAGING ENGINEER 05/24/2024 8:50 PM SENIOR PACKAGING ENGINEER Gonzalez Lamar DO LAB POCT ORDERABLES - DE VICE Final Result Performing Organization Address [facility] [place] [address] * Critical Care (05/24/2024 8:47 PM SENIOR PACKAGING ENGINEER) Narrative Ag Lemos MD - 05/24/2024 8:47 PM SENIOR PACKAGING ENGINEER Ag Lemos MD 05/25/2024 6:53 AM Critical [...] plan with the ICU team and other medical/residential solar consultant staff, making frequent assessments and decisions [...] Final Result * eGFR (05/24/2024 5:43 PM SENIOR PACKAGING ENGINEER) Pathologist [facility] eGFR >90 >=60 mL/min/1. 73 m2 Comment: [...] last reviewed 2021. Blood 05/24/2024 5:43 PM SENIOR PACKAGING ENGINEER 05/24/2024 6:00 PM SENIOR PACKAGING ENGINEER us Gonzalez Lamar DO LAB BLOOD ORDERABLES Fin al Result [facility] Department [place] [address] * Differential, auto (05/24/2024 5:43 PM SENIOR PACKAGING ENGINEER) Neutrophil abs 4.9 1.5 - 6.5 K/cumm Imm gran abs 0.0 0.0 - 0.1 K/cumm [facility] Lymphocyte abs 1.4 0.8 - 3.3 K/cumm [facility] Monocyte abs 0.8 0.2 - 0.8 K/cumm [facility] Eosinophil abs 0.1 0.0 - 0.5 K/cumm [facility] Basophil abs 0.1 0.0 - 0.1 K/cumm [facility] Neutrophil pct 67.4 % [facility] Comment: Interpretive Data Percent cell count reference ranges are not reported, since discordance with absolute values may lead to misinterpretation of CBC data. Current Interpretive Data was last revised on 2017. Imm gran pct 0.4 % [facility] Comment: Interpretive Data Percent cell count reference ranges are not reported, since discordance with absolute values may lead to misinterpretation of CBC data. Current Interpretive Data was last revised on 2017. Lymphocyte pct 19.4 % [facility] Comment: Interpretive Data Percent cell count reference ranges are not reported, since discordance with absolute values may lead to misinterpretation of CBC data. Current Interpretive Data was last revised on 2017. Monocyte pct 11.3 % [facility] Comment: Interpretive Data Percent cell count reference ranges are not reported, since discordance with absolute values may lead to misinterpretation of CBC data. Current Interpretive Data was last revised on 2017. Eosinophil pct 0.8 % [facility] Comment: Interpretive Data Percent cell count reference ranges are not reported, since discordance with absolute values may lead to misinterpretation of CBC data. Current Interpretive Data was last revised on 2017. Basophil pct 0.7 % [facility] Comment: Interpretive Data Percent cell count reference ranges are not reported, since discordance with absolute values may lead to misinterpretation of CBC data. Current Interpretive Data was last revised on 2017. Blood 05/24/2024 5:43 PM SENIOR PACKAGING ENGINEER 05/24/2024 6:00 PM SENIOR PACKAGING ENGINEER Gonzalez Lamar DO LAB BLOOD ORDERABLES Fin al Result Performing Organization Address City/[facility]/ZIP Co de Phone Number [facility] [place] [address] * (ABNORMAL) CBC with auto differential (05/24/2024 5:43 PM SENIOR PACKAGING ENGINEER) [facility] WBC 7.2 3.8 - 9.9 K/cumm Hgb 11.5(L) 13.0 - 17.5 g/dL [facility] Hct 34.7(L) 38.9 - 50.3 % [facility] Plt 233 150 - 400 K/cumm [facility] MPV 9.2 9.1 - 12.3 fL [facility] RBC 3.77(L) 4.30 - 5.80 M/cumm [facility] MCV 92.0 81.3 - 96.4 fL [facility] MCH 30.5 27.1 - 33.3 pg [facility] MCHC 33.1 32.3 - 35.7 g/dL [facility] RDW CV 13.0 11.1 - 14.9 % [facility] RDW SD 43.8 35.7 - 48.1 fL [facility] NRBC abs 0.00 0.00 - 0.01 K/cumm [facility] Blood 05/24/2024 5:43 PM SENIOR PACKAGING ENGINEER 05/24/2024 6:00 PM SENIOR PACKAGING ENGINEER Gonzalez Lamar DO LAB BLOOD ORDERABLES Fin al Result Performing Organization Address City/[facility] Co de Phone Number [facility] [place] [address] * Lactate, whole blood (05/24/2024 5:43 PM SENIOR PACKAGING ENGINEER) [facility] Lactate, bld 0.7 0.7 - 2.0 mmol/L Blood 05/24/2024 5:43 PM SENIOR PACKAGING ENGINEER 05/24/2024 5:50 PM SENIOR PACKAGING ENGINEER Moriah Amin BARKER OPERATOR LAB BLOOD ORDERABLES Final Re sult Performing Organization Address [facility] Co de Phone Number [facility] [place] [address] * Phosphorus (05/24/2024 5:43 PM SENIOR PACKAGING ENGINEER) [facility] Phosphorus, pl 2.7 2.3 - 4.5 mg/dL Blood 05/24/2024 5:43 PM SENIOR PACKAGING ENGINEER 05/24/2024 6:00 PM SENIOR PACKAGING ENGINEER Gonzalez Lamar DO LAB BLOOD ORDERABLES Fin al Result Performing Organization Address [facility] de Phone Number [facility] [place] [address] * Magnesium (05/24/2024 5:43 PM SENIOR PACKAGING ENGINEER) [facility] Magnesium 2.0 1.4 - 2.5 mg/dL Blood 05/24/2024 5:43 PM SENIOR PACKAGING ENGINEER 05/24/2024 6:00 PM SENIOR PACKAGING ENGINEER Gonzalez Lamar DO LAB BLOOD ORDERABLES Fin al Result Performing Organization Address [facility] de Phone Number [facility] [place] [address] * Amylase (05/24/2024 5:43 PM SENIOR PACKAGING ENGINEER) [facility] Amylase 35 30 - 99 Units/L Blood 05/24/2024 5:43 PM SENIOR PACKAGING ENGINEER 05/24/2024 6:00 PM SENIOR PACKAGING ENGINEER Moriah Amin BARKER OPERATOR LAB BLOOD ORDERABLES Final Re sult [facility] Department [place] [address] * Comprehensive metabolic panel (05/24/2024 5:43 PM SENIOR PACKAGING ENGINEER) Sodium 140 135 - 145 mmol/L Potassium, pl 3.9 3.3 - 4.9 mmol/L [facility] Chloride 105 97 - 110 mmol/L [facility] CO2 25 22 - 32 mmol/L [facility] Anion gap 10 2 - 15 mmol/L [facility] BUN 6 6 - 25 mg/dL [facility] Creatinine 0.88 0.80 - 1.30 mg/dL [facility] Glucose 86 70 - 199 mg/dL [facility] Comment: Interpretive Data Fasting glucose >/= 126 [...] Calcium 8.9 8.5 - 10.3 mg/dL [facility] Bilirubin, total 0.8 0.1 - 1.2 mg/dL [facility] Protein, pl 6.7 6.5 - 8.5 g/dL [facility] Albumin 4.1 3.5 - 5.0 g/dL [facility] Alk phos 81 40 - 130 Units/L [facility] ALT 15 7 - 55 Units/L [facility] AST 17 10 - 50 Units/L [facility] Blood 05/24/2024 5:43 PM SENIOR PACKAGING ENGINEER 05/24/2024 6:00 PM SENIOR PACKAGING ENGINEER Gonzalez Lamar DO LAB BLOOD ORDERABLES Fin al Result [facility] [place] [address] * POCT glucose (05/24/2024 3:52 PM SENIOR PACKAGING ENGINEER) Glucose, POC 84 70 - 199 mg/dL Blood 05/24/2024 3:52 PM SENIOR PACKAGING ENGINEER 05/24/2024 3:52 PM SENIOR PACKAGING ENGINEER us Gonzalez Lamar DO LAB POCT ORDERABLES - DE VICE Final Result Performing Organization Address [facility] [place] [address] * POCT glucose (05/24/2024 11:06 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) Glucose, POC 138 70 - 199 mg/dL Blood 05/24/2024 11:0 6 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 05/24/2024 11:06 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 us Gonzalez Lamar DO LAB POCT ORDERABLES - DE VICE Final Result Performing Organization Address [facility] Co de Phone Number [facility] [address] * POCT glucose (05/24/2024 7:46 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) Glucose, POC 86 70 - 199 mg/dL Blood 05/24/2024 7:46 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 05/24/2024 7:46 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 us Gonzalez Lamar DO LAB POCT ORDERABLES - DE VICE Final Result Performing Organization Address [facility] [place] [address] * Critical Care (05/24/2024 6:15 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) Narrative Rafiq Rodriguez MD - 05/24/2024 6:15 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 Moriah Amin NP 05/24/2024 5:42 PM Critical [...] plan with the ICU team and other medical/residential solar consultant staff, making frequent assessments and decisions [...] deterioration of the following conditions: Moriah Amin BARKER OPERATOR IN CLINIC/BEDSIDE ORDERABLES Final Result * POCT glucose (05/24/2024 3:23 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) Glucose, POC 85 70 - 199 mg/dL Blood 05/24/2024 3:23 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 05/24/2024 3:23 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 Gonzalez Lamar DO LAB POCT ORDERABLES - DE VICE Final Result Performing Organization Address [facility] de Phone Number [facility] Department [place] [address] * POCT glucose (05/23/2024 11:04 PM SENIOR PACKAGING ENGINEER) Glucose, POC 84 70 - 199 mg/dL Blood 05/23/2024 11:0 4 PM SENIOR PACKAGING ENGINEER 05/23/2024 11:04 PM SENIOR PACKAGING ENGINEER Gonzalez Lamar DO LAB POCT ORDERABLES - DE VICE Final Result Performing Organization Address [facility] Co de Phone Number [facility] [place] [address] * Lactate (05/23/2024 8:33 PM SENIOR PACKAGING ENGINEER) Lactate 0.7 0.7 - 2.0 mmol/L Blood 05/23/2024 8:33 PM SENIOR PACKAGING ENGINEER 05/23/2024 9:39 PM SENIOR PACKAGING ENGINEER Gonzalez Lamar DO LAB BLOOD ORDERABLES Fin al Result Performing Organization Address City/[facility]/ZIP Co de Phone Number [facility] [place] [address] * eGFR (05/23/2024 8:33 PM SENIOR PACKAGING ENGINEER) eGFR >90 >=60 mL/min/1. 73 m2 Comment: [...] last reviewed 2021. Blood 05/23/2024 8:33 PM SENIOR PACKAGING ENGINEER 05/23/2024 9:17 PM SENIOR PACKAGING ENGINEER us Gonzalez Lamar DO LAB BLOOD ORDERABLES Fin al Result [facility] [place] [address] * Differential, auto (05/23/2024 8:33 PM SENIOR PACKAGING ENGINEER) Neutrophil abs 3.9 1.5 - 6.5 K/cumm Imm gran abs 0.0 0.0 - 0.1 K/cumm [facility] Lymphocyte abs 1.9 0.8 - 3.3 K/cumm [facility] Monocyte abs 0.8 0.2 - 0.8 K/cumm [facility] Eosinophil abs 0.0 0.0 - 0.5 K/cumm [facility] Basophil abs 0.0 0.0 - 0.1 K/cumm [facility] Neutrophil pct 58.1 % [facility] Comment: Interpretive Data Percent cell count reference ranges are not reported, since discordance with absolute values may lead to misinterpretation of CBC data. Current Interpretive Data was last revised on 2017. Imm gran pct 0.4 % [facility] Comment: Interpretive Data Percent cell count reference ranges are not reported, since discordance with absolute values may lead to misinterpretation of CBC data. Current Interpretive Data was last revised on 2017. Lymphocyte pct 28.1 % [facility] Comment: Interpretive Data Percent cell count reference ranges are not reported, since discordance with absolute values may lead to misinterpretation of CBC data. Current Interpretive Data was last revised on 2017. Monocyte pct 12.4 % [facility] Comment: Interpretive Data Percent cell count reference ranges are not reported, since discordance with absolute values may lead to misinterpretation of CBC data. Current Interpretive Data was last revised on 2017. Eosinophil pct 0.4 % [facility] Comment: Interpretive Data Percent cell count reference ranges are not reported, since discordance with absolute values may lead to misinterpretation of CBC data. Current Interpretive Data was last revised on 2017. Basophil pct 0.6 % [facility] Comment: Interpretive Data Percent cell count reference ranges are not reported, since discordance with absolute values may lead to misinterpretation of CBC data. Current Interpretive Data was last revised on 2017. Blood 05/23/2024 8:33 PM SENIOR PACKAGING ENGINEER 05/23/2024 9:29 PM SENIOR PACKAGING ENGINEER Gonzalez Frederick Willard DO LAB BLOOD ORDERABLES Fin al Result Performing Organization Address City/[facility]/ZIP Co de Phone Number [facility] [place] [address] * (ABNORMAL) Calcium, ionized (05/23/2024 8:33 PM SENIOR PACKAGING ENGINEER) [facility] Calcium, Ionized 4.48(L) 4.50 - 5.10 mg/dL Blood 05/23/2024 8:33 PM SENIOR PACKAGING ENGINEER 05/23/2024 9:17 PM SENIOR PACKAGING ENGINEER Gonzalez Lamar DO LAB BLOOD ORDERABLES Fin al Result Performing Organization Address [facility] de Phone Number [facility] [place] [address] * (ABNORMAL) CBC with auto differential (05/23/2024 8:33 PM SENIOR PACKAGING ENGINEER) [facility] WBC 6.8 3.8 - 9.9 K/cumm Hgb 11.4(L) 13.0 - 17.5 g/dL [facility] Hct 33.7(L) 38.9 - 50.3 % [facility] Plt 237 150 - 400 K/cumm [facility] MPV 9.5 9.1 - 12.3 fL [facility] RBC 3.80(L) 4.30 - 5.80 M/cumm [facility] MCV 88.7 81.3 - 96.4 fL [facility] MCH 30.0 27.1 - 33.3 pg [facility] MCHC 33.8 32.3 - 35.7 g/dL [facility] RDW CV 13.0 11.1 - 14.9 % [facility] RDW SD 42.2 35.7 - 48.1 fL [facility] NRBC abs 0.00 0.00 - 0.01 K/cumm [facility] Blood 05/23/2024 8:33 PM SENIOR PACKAGING ENGINEER 05/23/2024 9:29 PM SENIOR PACKAGING ENGINEER Gonzalez Lamar DO LAB BLOOD ORDERABLES Fin al Result Performing Organization Address [facility] de Phone Number [facility] [place] [address] * aPTT (05/23/2024 8:33 PM SENIOR PACKAGING ENGINEER) aPTT 31 28 - 38 sec Comment: Interpretive Data Heparin therapeutic range: 66.0 - 100.0 seconds. Range based on correlation with therapeutic heparin activity range of 0.3 - 0.7 Units/mL. Current interpretive data was last revised on 2023. Blood 05/23/2024 8:33 PM SENIOR PACKAGING ENGINEER 05/23/2024 9:20 PM SENIOR PACKAGING ENGINEER Gonzalez Lamar DO LAB BLOOD ORDERABLES Fin al Result Performing Organization Address [facility] de Phone Number [facility] [place] [address] * (ABNORMAL) Protime-INR (05/23/2024 8:33 PM SENIOR PACKAGING ENGINEER) PT 14.6(H) 9.7 - 13.0 sec INR 1.34(H) 0.90 - 1.20 [facility] Comment: Interpretive data Oral anticoagulant therapeutic ranges: Venous thromboembolism prophylaxis or treatment: 2.0-3.0 CARDIOLOGY Standard range: 2.0-3.0 High-intensity range: 2.5-3.5 Refer to indication-specific guidelines for appropriate target ranges for prosthetic heart valve replacement. Current interpretive data was last revised on 2019. Blood 05/23/2024 8:33 PM SENIOR PACKAGING ENGINEER 05/23/2024 9:20 PM SENIOR PACKAGING ENGINEER Gonzalez Lamar DO LAB BLOOD ORDERABLES Fin al Result Performing Organization Address [facility] de Phone Number [facility] [place] [address] * Type and screen (05/23/2024 8:33 PM SENIOR PACKAGING ENGINEER) Ellen, indirect Negative ABO Rh A Positive [facility] Blood 05/23/2024 8:33 PM SENIOR PACKAGING ENGINEER 05/23/2024 9:31 PM SENIOR PACKAGING ENGINEER Narrative [facility] - 05/23/2024 10:36 PM SENIOR PACKAGING ENGINEER Has the patient had Daratumumab or Isatuximab in the past 6 months?->Unknown Moriah Amin NP LAB BLOOD BANK TEST [place] [address] * Phosphorus (05/23/2024 8:33 PM SENIOR PACKAGING ENGINEER) Pathologist [facility] [place] Phosphorus, pl 2.5 2.3 - 4.5 mg/dL Blood 05/23/2024 8:33 PM SENIOR PACKAGING ENGINEER 05/23/2024 9:17 PM SENIOR PACKAGING ENGINEER Gonzalez Lamar DO LAB BLOOD ORDERABLES Fin al Result Performing Organization Address City/[facility] [place] [address] * Magnesium (05/23/2024 8:33 PM SENIOR PACKAGING ENGINEER) Pathologist [facility] [place] Magnesium 2.0 1.4 - 2.5 mg/dL Blood 05/23/2024 8:33 PM SENIOR PACKAGING ENGINEER 05/23/2024 9:17 PM SENIOR PACKAGING ENGINEER Gonzalez Lamar DO LAB BLOOD ORDERABLES Fin al Result [facility] [place] [address] * Creatine kinase (CK), total (05/23/2024 8:33 PM SENIOR PACKAGING ENGINEER) CK 159 40 - 300 Units/L Blood 05/23/2024 8:33 PM SENIOR PACKAGING ENGINEER 05/23/2024 9:17 PM SENIOR PACKAGING ENGINEER us Gonzalez Lamar DO LAB BLOOD ORDERABLES Fin al Result [facility] Department [place] [address] * (ABNORMAL) Comprehensive metabolic panel (05/23/2024 8:33 PM SENIOR PACKAGING ENGINEER) Sodium 141 135 - 145 mmol/L Potassium, pl 3.2(L) 3.3 - 4.9 mmol/L [facility] Chloride 105 97 - 110 mmol/L [facility] CO2 25 22 - 32 mmol/L [facility] Anion gap 11 2 - 15 mmol/L [facility] BUN 11 6 - 25 mg/dL [facility] Creatinine 1.03 0.80 - 1.30 mg/dL [facility] Glucose 84 70 - 199 mg/dL [facility] Comment: Interpretive Data Fasting glucose >/= 126 [...] Calcium 9.0 8.5 - 10.3 mg/dL [facility] Bilirubin, total 1.2 0.1 - 1.2 mg/dL [facility] Protein, pl 7.0 6.5 - 8.5 g/dL [facility] Albumin 4.2 3.5 - 5.0 g/dL [facility] Alk phos 83 40 - 130 Units/L [facility] ALT 15 7 - 55 Units/L [facility] AST 16 10 - 50 Units/L [facility] Blood 05/23/2024 8:33 PM SENIOR PACKAGING ENGINEER 05/23/2024 9:17 PM SENIOR PACKAGING ENGINEER Gonzalez Otoniel Lamar DO LAB BLOOD ORDERABLES Fin al Result Performing Organization Address City/[facility] Co de Phone Number [facility] Department [place] [address] * CT Body Outside Reference (05/23/2024 8:22 PM SENIOR PACKAGING ENGINEER) Impressions [facility] - 05/23/2024 8:22 PM SENIOR PACKAGING ENGINEER These images are for Reference purposes only and have not been reviewed by [facility] Radiology. There will be no report generated by a [facility] Radiologist. Narrative [facility] - 05/23/2024 8:22 PM SENIOR PACKAGING ENGINEER EXAMINATION: Images For Reference Purposes Only Gadiel Ireland MD IMG CT PROCEDURES Final Result Performing Organization Address [facility] Co de Phone Number [email or web address] * CT Body Outside Consult (05/23/2024 8:18 PM SENIOR PACKAGING ENGINEER) Anatomical Region Laterality Modality Body N/A Computed Tomogra phy 05/24/2024 8:05 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 Impressions 05/24/2024 8:05 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 1. Unchanged thoracoabdominal aortic dissection status post [...] images may or may not represent the iqug[place]ut source data set and thus may contain changes that may lower the accuracy of this second-opinion interpretation. Electronically signed by: Shahrzad Zimmerman M.D. Narrative 05/24/2024 8:05 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 EXAMINATION: RADIOLOGY CONSULTATION ON OUTSIDE IMAGING STUDY STUDY INITIALLY PERFORMED: 05/23/2024 at [place]. TYPE OF STUDY: Multiple CT images of [...] IMAGING STUDY STUDY INITIALLY PERFORMED: 05/23/2024 at [place]. TYPE OF STUDY: Multiple CT images of [...] images may or may not represent the iqu[place]ut source data set and thus may contain changes that may lower the accuracy of this second-opinion interpretation. Electronically signed by: Shahrzad Zimmerman M.D. Gadiel Ireland MD IM CT PROCEDURES Final Result * POCT glucose (05/23/2024 7:47 PM SENIOR PACKAGING ENGINEER) Pathologist [facility] [place] Glucose, POC 80 70 - 199 mg/dL Blood 05/23/2024 7:47 PM SENIOR PACKAGING ENGINEER 05/23/2024 7:47 PM SENIOR PACKAGING ENGINEER Gonzalez Frederick Silvanaaamir LAB POCT ORDERABLES - DE VICE Final Result [facility] [place] [address] * POCT Rapid HIV Antibody Community Screening-[place] Eligible (05/21/2024 7:35 PM SENIOR PACKAGING ENGINEER) [facility] Rapid HIV, POC Negative Negative Lot Number [id number] QC Control Line Acceptable Blood 05/21/2024 7:35 PM SENIOR PACKAGING ENGINEER Marcus Amaya MD POINT OF CARE TEST ORD ERABLES Final Result * (ABNORMAL) Oxycodone Confirmation, Urine (05/21/2024 5:34 PM SENIOR PACKAGING ENGINEER) [facility] Oxycodone Conf, Ur Confirmed Positive(A) CutOff 50 [...] needed. Performance characteristics were determined by the [facility] in a manner consistent with CLIA requirement and has not been cleared or approved by the U.S. Food and Drug Administration. Current interpretive data was last revised 2020. Urine 05/21/2024 5:34 PM SENIOR PACKAGING ENGINEER 05/21/2024 5:46 PM SENIOR PACKAGING ENGINEER Marcus Amaya MD LAB URINE ORDERABLES F inal Result [facility] Department [place] [address] * (ABNORMAL) Fentanyl Confirmation, Urine (05/21/2024 5:34 PM SENIOR PACKAGING ENGINEER) Fentanyl Conf, Ur Confirmed Positive(A) Cutoff 0.3ng/mL Acetylfentanyl Conf, Ur Does Not Confirm Cutoff 1 ng/mL [facility] Acrylfentanyl Conf, Ur Does Not Confirm Cutoff 1 ng/mL [facility] Furanylfentanyl Conf, Ur Does Not Confirm Cutoff 1 ng/mL [facility] Fentanyl Metabolite (Norfentanyl) Conf, Ur Confirmed Positive(A) [...] needed. Performance characteristics were determined by the [facility] in a manner consistent with CLIA requirement and has not been cleared or approved by the U.S. Food and Drug Administration. Current interpretive data was last revised 2020. Urine 05/21/2024 5:34 PM SENIOR PACKAGING ENGINEER 05/21/2024 5:46 PM SENIOR PACKAGING ENGINEER Marcus Amaya MD LAB URINE ORDERABLES F inal Result [facility] Department [place] [address] * (ABNORMAL) Drugs of Abuse Screen, Urine with Reflex Confirmation (05/21/2024 5:34 PM SENIOR PACKAGING ENGINEER) Amphetamine, ur Screen Positive, presumptive (A) CutOff [...] Barbiturates, ur Not Detected CutOff 200ng/mL [facility] Comment: Interpretive Data - Barbiturates: Samples containing greater than 200 ng/mL secobarbital or other cross-reacting barbiturate compounds are reported as positive. False positive and false negative results are possible. Confirmatory testing required for definitive results. Current Interpretive Data was last reviewed 2022. Benzodiazepines, ur Screen Positive, presumptive (A) CutOff 100ng/mL [facility] Comment: Interpretive Data - Benzodiazepines: Samples containing greater than 100 ng/mL nordiazepam or other cross-reacting compounds are reported as positive. False positive and false negative results are possible. Confirmatory testing required for definitive results. Current Interpretive Data was last reviewed 2022. Cannabinoids, ur Screen Positive, presumptive (A) CutOff 50 ng/mL [facility] Comment: Interpretive Data - Cannabinoids: Samples containing greater than 50 ng/mL delta-9 THC -COOH or other cross- reacting compounds are reported as positive. False positive and false negative results are possible. Confirmatory testing required for definitive results. Current Interpretive Data was last reviewed 2022. Cocaine, ur Not Detected CutOff 150ng/mL [facility] Comment: Interpretive Data - Cocaine: Samples containing greater than 150 ng/mL benzoylecgonine or other cross- reacting compounds are reported as positive. False positive and false negative results are possible. Confirmatory testing required for definitive results. Current Interpretive Data was last reviewed 2022. Fentanyl, Ur Screen Positive, presumptive (A) CutOff 5 ng/mL [facility] Comment: Interpretive Data - Fentanyl: Samples containing greater than 5 ng/mL norfentanyl, fentanyl, or other cross-reacting fentanyl compounds are reported as positive. False positive and false negative results are possible. Confirmatory testing required for definitive results. Current Interpretive Data was last reviewed 2023. Methadone, ur Not Detected CutOff 300ng/mL [facility] Comment: Interpretive Data - Methadone: Samples containing greater than 300 ng/mL d,l-methadone or other cross-reacting compounds are reported as positive. False positive and false negative results are possible. Confirmatory testing required for definitive results. Current Interpretive Data was last reviewed 2022. Opiates, ur Not Detected CutOff 300ng/mL [facility] Comment: Interpretive Data - Opiates: Samples containing greater than 300 ng/mL morphine or other cross-reacting compounds are reported as positive. False positive and false negative results are possible. Confirmatory testing required for definitive results. Current Interpretive Data was last reviewed 2022. Oxycodone, ur Screen Positive, presumptive (A) CutOff 100ng/mL [facility] Comment: Interpretive Data - Oxycodone: Samples containing greater than 100 ng/mL oxycodone or other cross-reacting compounds are reported as positive. False positive and false negative results are possible. Confirmatory testing required for definitive results. Current Interpretive Data was last reviewed 2022. Phencyclidine, ur Not Detected CutOff 25 ng/mL [facility] Comment: Interpretive Data - Phencyclidine: Samples containing greater than 25 ng/mL phencyclidine or other cross-reacting compounds are reported as positive. False positive and false negative results are possible. Confirmatory testing required for definitive results. Current Interpretive Data was last reviewed 2022. Urine Creatinine 357 mg/dL [facility] Comment: Interpretive Data Urine Creatinine: < 10 mg/dL is extremely dilute = or > 10 but < 20 mg/dL is dilute = or > 20 mg/dL is normal Current Interpretive Data was last revised on 2017. Urine 05/21/2024 5:34 PM SENIOR PACKAGING ENGINEER 05/21/2024 5:46 PM SENIOR PACKAGING ENGINEER Narrative [facility] - 05/21/2024 6:16 PM SENIOR PACKAGING ENGINEER Drug of Abuse screening is performed by immunoassay for medical purposes only. This is not to be used for Pain Management purposes. If Detected, confirmation testing will be performed for Amphetamines, Cocaine, Fentanyl, Methadone, Opiates, Oxycodone or Phencyclidine. us Marcus Amaya MD LAB URINE ORDERABLES F inal Result [facility] Department [place] [address] * (ABNORMAL) Urinalysis reflex to microscopic (05/21/2024 5:34 PM SENIOR PACKAGING ENGINEER) Color, ur Yellow Yellow Clarity, ur Clear Clear [facility] Specific gravity, ur 1.032(H) 1.003 - 1.030 [facility] pH, urine 6.0 [facility] Comment: Interpretive Data U rine pH is affected by diet, medications, systemic acid-base disturbances, and renal tubular function. pH may affect urinary stone formation. For example, urine pH below 6.0 may help reduce the tendency for calcium phosphate stones and pH greater than 6.0 may reduce the tendency for uric acid stone formation. Source: [facility] Current Interpretive Data was last revised on 2017 Protein, ur ql 2+(A) Negative [facility] Glucose, ur ql Negative Negative [facility] Ketones, ur 1+(A) Negative [facility] Bilirubin, ur Negative Negative [facility] Blood, ur Negative Negative [facility] Urobilinogen, ur <2.0 <2.0 mg/dL [facility] Nitrite, ur Negative Negative [facility] Leukocyte esterase, ur Negative Negative [facility] UA reflex comment Reflex to microscopic UA will be performed. [facility] Urine 05/21/2024 5:34 PM SENIOR PACKAGING ENGINEER 05/21/2024 5:39 PM SENIOR PACKAGING ENGINEER Marcus Amaya MD LAB URINE ORDERABLES F inal Result [facility] Department [place] [address] * Amphetamine Confirmation, Urine (05/21/2024 5:34 PM SENIOR PACKAGING ENGINEER) Amphetamine Conf, Ur Does Not Confirm CutOff 150ng/mL Methamphetamine Conf, Ur Does Not Confirm CutOff 150ng/mL [facility] MDA Conf, Ur Does Not Confirm CutOff 150ng/mL [facility] MDMA Conf, Ur Does Not Confirm CutOff 50 ng/mL [facility] MDEA Conf, Ur Does Not Confirm CutOff 150ng/mL [facility] MBDB Conf, Ur Does Not Confirm CutOff 150ng/mL [facility] Comment: Interpretive Data This test detects the presence or absence of drug compounds using LC Tandem mass spectrometry. While this test is highly specific, false positive and false negative results may occur in very rare circumstances. Contact the laboratory for consultation, if needed. Performance characteristics were determined by the [facility] in a manner consistent with CLIA requirement and has not been cleared or approved by the U.S. Food and Drug Administration. Current interpretive data was last revised on 2020. Urine 05/21/2024 5:34 PM SENIOR PACKAGING ENGINEER 05/21/2024 5:46 PM SENIOR PACKAGING ENGINEER Marcus Amaya MD LAB URINE ORDERABLES F inal Result Performing Organization Address [facility] Co de Phone Number [facility] [place] [address] * (ABNORMAL) Urinalysis, microscopic only (05/21/2024 5:34 PM SENIOR PACKAGING ENGINEER) WBC, ur 0-5 0 - 5 /HPF RBC, ur 0-2 0 - 2 /HPF [facility] Epithelial cells, squamous, ur 1-5 0 - 5 /HPF [facility] Bacteria, ur Trace(A) [facility] Mucous, ur Present(A) [facility] Hyaline casts, ur 11-20(A) 0 - 10 /LPF [facility] Urine 05/21/2024 5:34 PM SENIOR PACKAGING ENGINEER 05/21/2024 5:39 PM SENIOR PACKAGING ENGINEER Marcus Amaya MD LAB URINE ORDERABLES F inal Result Performing Organization Address [facility] Co de Phone Number [facility] [place] [address] * Sepsis Lactate w/ Reflex (05/21/2024 4:33 PM SENIOR PACKAGING ENGINEER) Sepsis Lactate 1.9 0.7 - 2.0 mmol/L Blood 05/21/2024 4:33 PM SENIOR PACKAGING ENGINEER 05/21/2024 4:44 PM SENIOR PACKAGING ENGINEER Marcus Amaya MD LAB BLOOD ORDERABLES F inal Result Performing Organization Address City/[facility]/ZIP Co de Phone Number [facility] Department [place] [address] * eGFR (05/21/2024 3:41 PM SENIOR PACKAGING ENGINEER) eGFR 70 >=60 mL/min/1. 73 m2 Comment: [...] last reviewed 2021. Blood 05/21/2024 3:41 PM SENIOR PACKAGING ENGINEER 05/21/2024 4:03 PM SENIOR PACKAGING ENGINEER Chelle Elliott MD LAB BLOOD ORDERABLES Final Result Performing Organization Address [facility] Co de Phone Number [facility] Department [place] [address] * (ABNORMAL) Differential, auto (05/21/2024 3:41 PM SENIOR PACKAGING ENGINEER) Neutrophil abs 6.9(H) 1.5 - 6.5 K/cumm Imm gran abs 0.0 0.0 - 0.1 K/cumm [facility] Lymphocyte abs 1.5 0.8 - 3.3 K/cumm [facility] Monocyte abs 0.9(H) 0.2 - 0.8 K/cumm [facility] Eosinophil abs 0.0 0.0 - 0.5 K/cumm [facility] Basophil abs 0.0 0.0 - 0.1 K/cumm [facility] Neutrophil pct 73.5 % [facility] Comment: Interpretive Data Percent cell count reference ranges are not reported, since discordance with absolute values may lead to misinterpretation of CBC data. Current Interpretive Data was last revised on 2017. Imm gran pct 0.3 % [facility] Comment: Interpretive Data Percent cell count reference ranges are not reported, since discordance with absolute values may lead to misinterpretation of CBC data. Current Interpretive Data was last revised on 2017. Lymphocyte pct 15.7 % [facility] Comment: Interpretive Data Percent cell count reference ranges are not reported, since discordance with absolute values may lead to misinterpretation of CBC data. Current Interpretive Data was last revised on 2017. Monocyte pct 10.0 % [facility] Comment: Interpretive Data Percent cell count reference ranges are not reported, since discordance with absolute values may lead to misinterpretation of CBC data. Current Interpretive Data was last revised on 2017. Eosinophil pct 0.1 % [facility] Comment: Interpretive Data Percent cell count reference ranges are not reported, since discordance with absolute values may lead to misinterpretation of CBC data. Current Interpretive Data was last revised on 2017. Basophil pct 0.4 % [facility] Comment: Interpretive Data Percent cell count reference ranges are not reported, since discordance with absolute values may lead to misinterpretation of CBC data. Current Interpretive Data was last revised on 2017. Blood 05/21/2024 3:41 PM SENIOR PACKAGING ENGINEER 05/21/2024 4:06 PM SENIOR PACKAGING ENGINEER us Chelle Elliott MD LAB BLOOD ORDERABLES Final Result [facility] Department [place] [address] * CBC with auto differential (05/21/2024 3:41 PM SENIOR PACKAGING ENGINEER) WBC 9.4 3.8 - 9.9 K/cumm Hgb 13.9 13.0 - 17.5 g/dL [facility] Hct 40.0 38.9 - 50.3 % [facility] Plt 291 150 - 400 K/cumm [facility] MPV 9.1 9.1 - 12.3 fL [facility] RBC 4.59 4.30 - 5.80 M/cumm [facility] MCV 87.1 81.3 - 96.4 fL [facility] MCH 30.3 27.1 - 33.3 pg [facility] MCHC 34.8 32.3 - 35.7 g/dL [facility] RDW CV 13.1 11.1 - 14.9 % [facility] RDW SD 41.8 35.7 - 48.1 fL [facility] NRBC abs 0.00 0.00 - 0.01 K/cumm [facility] Blood (Blood, Venous) 05/21/2024 3:41 PM SENIOR PACKAGING ENGINEER 05/21/2024 4:06 PM SENIOR PACKAGING ENGINEER Marcus Amaya MD LAB BLOOD ORDERABLES F inal Result Performing Organization Address City/[facility] Co de Phone Number [facility] [place] [address] * Lipase (05/21/2024 3:41 PM SENIOR PACKAGING ENGINEER) [facility] Lipase 15 10 - 99 Units/L Blood (Blood, Venous) 05/21/2024 3:41 PM SENIOR PACKAGING ENGINEER 05/21/2024 4:03 PM SENIOR PACKAGING ENGINEER Marcus Amaya MD LAB BLOOD ORDERABLES F inal Result Performing Organization Address City/[facility] Co de Phone Number [facility] [place] [address] * (ABNORMAL) Comprehensive metabolic panel (05/21/2024 3:41 PM SENIOR PACKAGING ENGINEER) [facility] Sodium 136 135 - 145 mmol/L Potassium, pl 3.6 3.3 - 4.9 mmol/L [facility] Chloride 99 97 - 110 mmol/L [facility] CO2 22 22 - 32 mmol/L [facility] Anion gap 15 2 - 15 mmol/L [facility] BUN 22 6 - 25 mg/dL [facility] Creatinine 1.37(H) 0.80 - 1.30 mg/dL [facility] Glucose 92 70 - 199 mg/dL [facility] Comment: Interpretive Data Fasting glucose >/= 126 [...] Calcium 10.3 8.5 - 10.3 mg/dL [facility] Bilirubin, total 1.5(H) 0.1 - 1.2 mg/dL [facility] Protein, pl 8.5 6.5 - 8.5 g/dL [facility] Albumin 5.1(H) 3.5 - 5.0 g/dL [facility] Alk phos 99 40 - 130 Units/L [facility] ALT 19 7 - 55 Units/L [facility] AST 21 10 - 50 Units/L [facility] Blood 05/21/2024 3:41 PM SENIOR PACKAGING ENGINEER 05/21/2024 4:03 PM SENIOR PACKAGING ENGINEER us Marcus Amaya MD LAB BLOOD ORDERABLES F inal Result [facility] Department [place] [address] * ECG 12-LEAD (05/21/2024 2:24 PM SENIOR PACKAGING ENGINEER) Narrative [facility] - 05/21/2024 2:24 PM SENIOR PACKAGING ENGINEER Huy Mack MD 05/21/2024 2:27 PM ECG [...] Amaya MD ECG ORDERABLES Final Result [facility] * ECG 12-LEAD (05/19/2024 11:55 PM SENIOR PACKAGING ENGINEER) Narrative [facility] - 05/19/2024 11:55 PM SENIOR PACKAGING ENGINEER Deniz Huitron MD 05/19/2024 11:56 PM ECG [...] PA Lateral 2 Views (05/19/2024 10:34 PM SENIOR PACKAGING ENGINEER) Anatomical Region Laterality Modality Body, Chest N/A Computed Radiogr aphy 05/19/2024 10:4 3 PM SENIOR PACKAGING ENGINEER Impressions 05/20/2024 9:03 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 Comparison is made to 07/05/2023. Thoracic aorta [...] Collins Wills M.D. Narrative 05/20/2024 9:03 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 EXAMINATION: 2 view chest radiograph Procedure Note [...] CTA Chest Abdomen Pelvis (05/19/2024 10:20 PM SENIOR PACKAGING ENGINEER) Anatomical Region Laterality Modality Body N/A Computed Tomogra phy 05/19/2024 10:5 1 PM SENIOR PACKAGING ENGINEER Impressions 05/20/2024 9:06 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 1. Unchanged thoracoabdominal aortic dissection status post [...] Collins Wills M.D. Narrative 05/20/2024 9:06 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 EXAMINATION: CT ANGIOGRAPHY OF THE CHEST, [...] (baseline, 2hr, 4hr, 6hr) (05/19/2024 9:12 PM SENIOR PACKAGING ENGINEER) Trop I hs 4 <=35 ng/L Comment: Interpretive Data For further hscTnI resources including the diagnostic algorithm and an aid in interpretation, copy and paste this link: [email or web address]/[email or web address] Current Interpretive Data last revised 2019. Blood 05/19/2024 9:12 PM SENIOR PACKAGING ENGINEER 05/19/2024 9:28 PM SENIOR PACKAGING ENGINEER us Cristobal Waldrop MD LAB BLOOD ORDERABLE S Final Result [facility] Department [place] [address] * eGFR (05/19/2024 9:12 PM SENIOR PACKAGING ENGINEER) eGFR 85 >=60 mL/min/1. 73 m2 Comment: [...] last reviewed 2021. Blood 05/19/2024 9:12 PM SENIOR PACKAGING ENGINEER 05/19/2024 9:28 PM SENIOR PACKAGING ENGINEER us Cristobal Waldrop MD LAB BLOOD ORDERABLE S Final Result JAIRON ERWIN [facility] Department [place] [address] * (ABNORMAL) Differential, auto (05/19/2024 9:12 PM SENIOR PACKAGING ENGINEER) Neutrophil abs 7.6(H) 1.5 - 6.5 K/cumm Imm gran abs 0.1 0.0 - 0.1 K/cumm [facility] Lymphocyte abs 0.9 0.8 - 3.3 K/cumm [facility] Monocyte abs 0.5 0.2 - 0.8 K/cumm [facility] Eosinophil abs 0.0 0.0 - 0.5 K/cumm [facility] Basophil abs 0.0 0.0 - 0.1 K/cumm [facility] Neutrophil pct 84.3 % [facility] Comment: Interpretive Data Percent cell count reference ranges are not reported, since discordance with absolute values may lead to misinterpretation of CBC data. Current Interpretive Data was last revised on 2017. Imm gran pct 0.7 % [facility] Comment: Interpretive Data Percent cell count reference ranges are not reported, since discordance with absolute values may lead to misinterpretation of CBC data. Current Interpretive Data was last revised on 2017. Lymphocyte pct 9.4 % [facility] Comment: Interpretive Data Percent cell count reference ranges are not reported, since discordance with absolute values may lead to misinterpretation of CBC data. Current Interpretive Data was last revised on 2017. Monocyte pct 5.3 % [facility] Comment: Interpretive Data Percent cell count reference ranges are not reported, since discordance with absolute values may lead to misinterpretation of CBC data. Current Interpretive Data was last revised on 2017. Eosinophil pct 0.1 % [facility] Comment: Interpretive Data Percent cell count reference ranges are not reported, since discordance with absolute values may lead to misinterpretation of CBC data. Current Interpretive Data was last revised on 2017. Basophil pct 0.2 % [facility] Comment: Interpretive Data Percent cell count reference ranges are not reported, since discordance with absolute values may lead to misinterpretation of CBC data. Current Interpretive Data was last revised on 2017. Blood 05/19/2024 9:12 PM SENIOR PACKAGING ENGINEER 05/19/2024 9:28 PM SENIOR PACKAGING ENGINEER Cristobal Waldrop MD LAB BLOOD ORDERABLE S Final Result Performing Organization Address [facility]/ZIP Co de Phone Number [facility] [place] [address] * CBC with auto differential (05/19/2024 9:12 PM SENIOR PACKAGING ENGINEER) Pathologist [facility] WBC 9.0 3.8 - 9.9 K/cumm Hgb 13.7 13.0 - 17.5 g/dL [facility] Hct 39.7 38.9 - 50.3 % [facility] Plt 293 150 - 400 K/cumm [facility] MPV 9.2 9.1 - 12.3 fL [facility] RBC 4.53 4.30 - 5.80 M/cumm [facility] MCV 87.6 81.3 - 96.4 fL [facility] MCH 30.2 27.1 - 33.3 pg [facility] MCHC 34.5 32.3 - 35.7 g/dL [facility] RDW CV 13.2 11.1 - 14.9 % [facility] RDW SD 42.5 35.7 - 48.1 fL [facility] NRBC abs 0.00 0.00 - 0.01 K/cumm [facility] Blood 05/19/2024 9:12 PM SENIOR PACKAGING ENGINEER 05/19/2024 9:28 PM SENIOR PACKAGING ENGINEER Cristobal Waldrop MD LAB BLOOD ORDERABLE S Final Result [facility] Department [place] [address] * aPTT (05/19/2024 9:12 PM SENIOR PACKAGING ENGINEER) Pathologist [facility] aPTT 34 28 - 38 sec Comment: Interpretive Data Heparin therapeutic range: 66.0 - 100.0 seconds. Range based on correlation with therapeutic heparin activity range of 0.3 - 0.7 Units/mL. Current interpretive data was last revised on 2023. Blood 05/19/2024 9:12 PM SENIOR PACKAGING ENGINEER 05/19/2024 9:32 PM SENIOR PACKAGING ENGINEER Cristobal Waldrop MD LAB BLOOD ORDERABLE S Final Result Performing Organization Address [facility] de Phone Number [facility] Department [place] [address] * (ABNORMAL) Protime-INR (05/19/2024 9:12 PM SENIOR PACKAGING ENGINEER) PT 14.2(H) 9.7 - 13.0 sec INR 1.31(H) 0.90 - 1.20 [facility] Comment: Interpretive data Oral anticoagulant therapeutic ranges: Venous thromboembolism prophylaxis or treatment: 2.0-3.0 CARDIOLOGY Standard range: 2.0-3.0 High-intensity range: 2.5-3.5 Refer to indication-specific guidelines for appropriate target ranges for prosthetic heart valve replacement. Current interpretive data was last revised on 2019. Blood 05/19/2024 9:12 PM SENIOR PACKAGING ENGINEER 05/19/2024 9:32 PM SENIOR PACKAGING ENGINEER Cristobal Waldrop MD LAB BLOOD ORDERABLE S Final Result Performing Organization Address [facility] de Phone Number [facility] Department [place] [address] * Type and screen (05/19/2024 9:12 PM SENIOR PACKAGING ENGINEER) Ellen, indirect Negative ABO Rh A Positive [facility] Blood 05/19/2024 9:12 PM SENIOR PACKAGING ENGINEER 05/19/2024 9:22 PM SENIOR PACKAGING ENGINEER Narrative [facility] - 05/19/2024 10:07 PM SENIOR PACKAGING ENGINEER Has the patient had Daratumumab or Isatuximab in the past 6 months?->Unknown Cristobal Waldrop MD LAB BLOOD BANK TEST ORDERABLES Final Result [facility] Department [place] [address] * (ABNORMAL) Comprehensive metabolic panel (05/19/2024 9:12 PM SENIOR PACKAGING ENGINEER) Sodium 139 135 - 145 mmol/L Potassium, pl 3.9 3.3 - 4.9 mmol/L [facility] Chloride 100 97 - 110 mmol/L [facility] CO2 21(L) 22 - 32 mmol/L [facility] Anion gap 18(H) 2 - 15 mmol/L [facility] BUN 18 6 - 25 mg/dL [facility] Creatinine 1.17 0.80 - 1.30 mg/dL [facility] Glucose 108 70 - 199 mg/dL [facility] Comment: Interpretive Data Fasting glucose >/= 126 [...] Calcium 10.2 8.5 - 10.3 mg/dL [facility] Bilirubin, total 1.2 0.1 - 1.2 mg/dL [facility] Protein, pl 8.7(H) 6.5 - 8.5 g/dL [facility] Albumin 5.1(H) 3.5 - 5.0 g/dL [facility] Alk phos 105 40 - 130 Units/L [facility] ALT 23 7 - 55 Units/L [facility] AST 18 10 - 50 Units/L [facility] Blood 05/19/2024 9:12 PM SENIOR PACKAGING ENGINEER 05/19/2024 9:28 PM SENIOR PACKAGING ENGINEER us Cristobal Waldrop MD LAB BLOOD ORDERABLE S Final Result [facility] Department [place] [address] * Hepatitis C antibody Blood (09/06/2023 11:15 [...] Edited Result - Final Performing Organization Address City/[facility]/ZIP Co de Phone Number JAIRON [facility] [place] [address] from Last 3 Months or Most Recently Relevant to Health Maintenance Insurance [facility] Advance Directives For more information, please contact: [phone] * Full Code (Latest Code Status on [...] Healthcare Agent Relationshi p Communication Meron Blankenship [facility] Health Care Agent Care Teams Cloth Shrinking Machine Operator Helper Relationship Specialty Start Date End Date Ronak Painting PA [address] [place] [address] PCP - General Physician Cupboard Builder 06/14/24 Leo Manzano MD [id number] [place] [address] Surgeon Vascular Surgery 05/16/23
--- OUTSIDE RECORDS SUMMARY | 2024-07-08 12:14 | XMS_ITS | Encounter Summary ---
Author Organization [facility] Healthcare Address [address] [place] [address] Care Team Providers Care Retail Marketing Manager Name Role Phone Leo Manzano MD Unavailable [phone] Carl Strickland MD Primary Care Provider Ronak Painting Primary Care Provider Encounter Details Date Type Department Care Team (Late st Contact Info) Description 05/25/2024 Documentation [facility] [address] [place] [address] Essie Singh RN Social History Tobacco Use Types Packs/Day Years Used Date Smoking Tobacco: Never Smokeless Tobacco: Never Alcohol Use Standard Drinks/Week Comments Not Currently 0 (1 standard drink = 0.6 oz pur e alcohol) [facility] Utilities Answer Date Recorded In the past 12 months has [employer], gas, oil, or water [employer] Active threatened to shut off services in your [...] week 05/24/2024 How often do you attend [facility] or yazidism services? 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 Author CCM Chronic Pain Care Plan Chronic Care Management No change(06/20 7:42 AM CAR SHAKEOUT OPERATOR) No Rita Landa, RN Note: Problem: Chronic Pain Goals: 1. Minimize further functional decline 2. Maximize quality of life 3. Control pain Strategies: - Activity/exercise program recommendation - Conservative stepwise pain medicine strategy with multi-disciplinary approach - Recommend healthy lifestyle strategies and compensatory methods as needed documented as of this encounter Visit Diagnoses Not on filedocumented in this encounter Care Teams Retail Marketing Manager Relationship Specialty Start Date End Date Carl Strickland MD [address] [facility] [address] [place] [address] PCP - General Internal Medicine 06/06/23 06/13/24 Ronak Painting PA [address] [facility] [place] [address] PCP - General Physician Associate Financial Planner 06/14/24 Leo Manzano MD [id number] [place] [address] Surgeon Vascular Surgery 05/16/23 documented as of this encounter
--- OUTSIDE RECORDS SUMMARY | 2024-07-08 12:14 | XMS_ITS | Patient Health Summary ---
Author Organization [facility] Address [address] [place] [address] Care Team Providers Care Engineer Of System Development Name Role Phone Unavailable Primary Care Provider Unavailabl e Note from [facility],non-owned Affiliates and Associated Physician Practices is amultiple site organization consisting of ambulatory clinics and hospital sitesin [place], [place], [place]. This disclosure is being madepursuant to the Care Everywhere program and may not contain all information available regarding this patient. Last updated 18.[facility] Social History Tobacco Use Types Packs/Day Years Used Date Smoking Tobacco: Never Assessed Sex and Gender Information Value Date Recorded Sex Assigned at Not on file Gender Identity Not on file Sexual Orientation Not on file
--- OUTSIDE RECORDS SUMMARY | 2024-07-08 12:14 | XMS_ITS | Clinical Summary ---
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 ATTENDANT Gender Identity Not on file Sexual Orientation Not on file Last Filed Vital Signs Vital Sign Reading Time Taken Comments Blood Pressure 142/100 08/07/2015 2:53 PM WARDROBE ATTENDANT Pulse - - Temperature 36.7 C (98 F) 08/07/2015 10:33 AM WARDROBE ATTENDANT Respiratory Rate 16 08/07/2015 2:53 PM WARDROBE ATTENDANT Oxygen Saturation 100% 08/07/2015 2:53 PM WARDROBE ATTENDANT Inhaled Oxygen Concentration - - Weight 83.9 kg (185 lb) 08/07/2015 10:33 AM WARDROBE ATTENDANT Height 177.8 cm (5' 10 ) 08/07/2015 10:33 AM WARDROBE ATTENDANT Body Mass Index 26.54 08/07/2015 10:33 AM WARDROBE ATTENDANT Plan of Treatment Health Maintenance Due Date Last Done Comments DTAP/TDAP/TD VACCINES (1 - Tdap) 2011 HEPATITIS B VACCINES (1 of 3 - 19+ 3-dose series) 2011 INFLUENZA VACCINE (#1) 2023 HPV VACCINES Aged Out No longer eligi ble based on patient's age to complete this topic Insurance Care Teams Polysomnographic Technologist Relationship Specialty Start Date End Date [facility], External Provider [address] [place] [address] PCP - General 08/07/15
--- OUTSIDE RECORDS SUMMARY | 2024-07-08 12:14 | XMS_ITS | Referral Summary ---
Author Organization [facility] Address [address] [facility] [place] [address] Care Team Providers Care Saw Repairer Name Role Phone Unavailable Primary Care Provider Unavailabl e Source Comments [facility],non-owned Affiliates and Associated Physician Practices is amultiple site organization consisting of ambulatory clinics and hospital sitesin [place], [place], [place] and [place]. This disclosure is being madepursuant to the Care Everywhere program and may not contain all information available regarding this patient. Last updated 18.[facility] [employer] Social History Tobacco Use Types Packs/Day Years Used Date Smoking Tobacco: Never Assessed Sex and Gender Information Value Date Recorded Sex Assigned at Not on file Gender Identity Not on file Sexual Orientation Not on file Plan of Treatment Not on file
--- OUTSIDE RECORDS SUMMARY | 2024-07-08 12:14 | XMS_ITS | Referral Summary ---
Author Organization [facility] Address [address] [place] [address] Care Team Providers Care Manual Tester Name Role Phone Leo Manzano MD Unavailable [phone] Ronak Painting Primary Care Provider [phone] Encounters Date Type Department Care Team Description 07/02/2024 Telephone [facility] [address] [facility] Advanced Medicine [address] [place] [address] Adrianne Adams MD PhD PMC Preprocedure 06/27/2024 1:00 PM SPECIAL SERVICES COORDINATOR Office Visit [facility] Nephrology [address] [facility] Advanced [facility] 5th [place] [address] [place] [phone] ANGI (acute kidney injury) (HCC) (Primary Dx) 06/20/2024 7:27 AM SPECIAL SERVICES COORDINATOR - 06/20/2024 11:59 PM SPECIAL SERVICES COORDINATOR Hospital Encounter [facility] [address] [facility] Advanced [facility] [address] [place] [address] Jeremie Macias MD Yoshida, [place], MD PhD Sacroiliitis (HCC) (Primary Dx); Spondylosis of lumbar region without myelopathy or radiculopathy Discharge Disposition: Discharge to home or self care 06/08/2024 Telephone [facility] Cardiology [address] [facility] Advanced Medicine 8th [place] [address] [place] [address] Joaquín Abarca MD overdue orders 05/23/2024 7:45 PM SPECIAL SERVICES COORDINATOR - 05/29/2024 10:36 AM SPECIAL SERVICES COORDINATOR Hospital Encounter [address] [phone] Gonzalez Lamar DO Ohman, John Westley, MD Abdominal pain (Primary Dx) Discharge Disposition: Discharge to home or self care 05/25/[address] [phone] Essie Singh RN 05/21/2024 4:17 PM SPECIAL SERVICES COORDINATOR - 05/21/2024 8:27 PM [facility] Emergency [facility] Emergency Department [address] [place] [phone] Marcus Amaya MD Nausea and vomiting, unspecified vomiting type (Primary Dx) Discharge Disposition: Discharge to home or self care 05/19/2024 9:40 PM SPECIAL SERVICES COORDINATOR - 05/20/2024 1:34 AM [facility] Emergency [facility] Emergency Department [address] [place] [phone] Casandra Lock MD Renz, Nicholas Robert, MD Abdominal pain (Primary Dx); Chronic bilateral low back pain without sciatica; Abdominal aortic aneurysm dissection (HCC) Discharge Disposition: Discharge to home or self care 05/16/2024 2:39 PM SPECIAL SERVICES COORDINATOR - 05/16/2024 11:59 PM SPECIAL SERVICES COORDINATOR Hospital Encounter [facility] [address] [facility] [address] [place] [address] Adrianne Adams MD PhD Sacroiliitis (HCC) (Primary Dx) Discharge Disposition: Discharge to home or self care 04/24/2024 Orders Only [facility] Nephrology [address] [facility] 5th [place] [address] [place] [address] Miguel Dominguez MD ANGI (acute kidney injury) [...] line Assessment & Plan (06/24/2023 12:04 PM SPECIAL SERVICES COORDINATOR): - CT without discitis or osteomyelitis on 06/13 - MRI 06/13 also without discitis or osteomyelitis - no narcotic pain medications are required from vascular surgery perspective - Consult pain management team 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 - CT 06/13 shows no change in aneurysm, no stent migration, no increase in false lumen perfusion - non operative Polysubstance abuse ([facility]) 06/10/2023 Moderate malnutrition ([facility]) 06/09/2023 Dissection of abdominal aorta ([facility]) 06/03/19 24 Urinary retention 05/16/2023 Assessment & Plan (05/16/2023 10:44 AM SPECIAL SERVICES COORDINATOR): Patient with urinary retention requiring straight cath X1 05/15, now voiding without any issues. - Continue Flomax. - Patient requests urology follow up, referral placed. Epistaxis 05/13/2023 Assessment & Plan (05/13/2023 12:42 PM SPECIAL SERVICES COORDINATOR): Significant nose bleed in the OR requiring intra-op ENT c/s. DL performed, no other sources of bleeding visualized. ACT post protamine 149. - ENT following - ocean spray tid - no other s/s bleeding Pneumonia 05/13/2023 Assessment & Plan (05/13/2023 12:43 PM SPECIAL SERVICES COORDINATOR): Tracheal aspirate 05/05 with Haemophilus Inf - susana(05/04 - 05/10), linezolid (05/04-05/06) HTN (hypertension) 05/13/2023 Assessment & Plan (05/28/2024 8:41 AM SPECIAL SERVICES COORDINATOR): BP well controlled. - continue home amlodipine [...] needed Assessment & Plan (06/24/2023 10:41 AM SPECIAL SERVICES COORDINATOR): Difficult to control Htn. Dr. Abarca following - Continue amlodipine, lisinopril, coreg, hydralazine - SBP goal 120-140 - VS q 4 hrs and prn Assessment & Plan (06/21/2023 7:57 AM SPECIAL SERVICES COORDINATOR): BP stable at present. Recommend discontinuation of the diltiazem and continue amlodipine (as opposed to giving two calcium channel blockers) Assessment & Plan (06/20/2023 8:33 PM SPECIAL SERVICES COORDINATOR): BP improving. Recommend continue medications and follow up bp, except recommend discontinuation of the diltiazem as he is already on a calcium channel louie, amlodipine Assessment & Plan (06/18/2023 7:59 AM SPECIAL SERVICES COORDINATOR): Patient with continued hypertension. Blood pressure in the right arm levels are improved now in the 130s and 140s. Recommend consideration for adjustment of medications as follows. 1. Add spironolactone 25 mg a day 2. Consider adding clonidine 0.1 mg twice a day Assessment & Plan (06/11/2023 7:50 AM SPECIAL SERVICES COORDINATOR): Patient hypertensive. Recommend resuming hydralazine 25 mg 3 times a day. Continue the amlodipine and carvedilol. Follow-up blood pressure. The patient should have follow-up blood pressure when he leaves the hospital as well. Assessment & Plan (06/10/2023 3:48 PM SPECIAL SERVICES COORDINATOR): Goal systolic BP 140-180 for one month [...] status Assessment & Plan (06/09/2023 10:54 AM SPECIAL SERVICES COORDINATOR): Blood pressure well controlled at present. Medicines are being adjusted. Currently on carvedilol and hydralazine. A want to transition to amlodipine 5 mg a day to wean hydralazine, as tolerated, as 3 times a day medication can be difficult long-term Assessment & Plan (05/13/2023 12:49 PM SPECIAL SERVICES COORDINATOR): Hx of uncontrolled HTN, non-compliant to medications. [...] time Assessment & Plan (06/11/2023 7:50 AM SPECIAL SERVICES COORDINATOR): Clinically stable. Renal function stable. Blood pressure improved We will recommend genetic testing as an outpatient Assessment & Plan (06/10/2023 3:48 PM SPECIAL SERVICES COORDINATOR): Presents with abdominal pain and concern for progression of dissection on CT - 06/05/23: OR s/p TEVAR extension and dissection stent placement - BP management per HTN - pain control - Q4 NV checks, Q2 VS - lovenox DVT ppx - He will f/u with Dr. Abarca as outpatient for genetics testing. Assessment & Plan (06/09/2023 10:54 AM SPECIAL SERVICES COORDINATOR): Clinically stable. Renal function stable. Blood pressure improved We will recommend genetic testing as an outpatient Assessment & Plan (05/16/2023 10:45 AM SPECIAL SERVICES COORDINATOR): Patient presented on 05/01 with acute Chest [...] 05/01/2023 Assessment & Plan (05/29/2024 7:45 AM SPECIAL SERVICES COORDINATOR): 34 y/o M with hx of symptomatic Type B aortic dissection requiring TBE and subsequent extension with TEVAR/dissection stents presents as OSH transfer for significant abdominal pain. No concern for mesenteric ischemia. - c/w impulse control - regular diet - transitioned to oral anti-hypertensive - pain management following. 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 Dilaudid discontinued 05/28. Pain signed off. Assessment & Plan (10/03/2023 2:00 PM CDT): Follows with Dr Abarca Cont antihypertensives Assessment & Plan (06/18/2023 8:00 AM SPECIAL SERVICES COORDINATOR): Aortic imaging stable on recent CT scan. Continue blood pressure control. Assessment & Plan (05/02/2023 2:02 PM SPECIAL SERVICES COORDINATOR): 32y/o male with uncontrolled HTN who presented to an OSH ER with acute onset shortness of breath, chest pain and back pain. 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 He was transferred to [facility] for further evaluation and treatment. 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 Never 05/24/2024 Do you belong to [...] a correction (including now)? Patient declined 10/02/2023 Housing Stability [...] any time in the past 12 m [facility], were you homeless or living in a correction (including now)? No 05/24/2024 Personal Safety Answer Date Recorded Have you ever been in or are you currently in a harmful physical or emotional relationship or is someone making you feel afraid or unsafe? Denies 05/23/2024 Sex and Gender Information Value Date Recorded Sex Assigned at Not on file Legal Sex Male 3:42 AM SPECIAL SERVICES COORDINATOR Gender Identity Not on file Sexual Orientation Straight 06/12/2023 11 :43 PM SPECIAL SERVICES COORDINATOR Last Filed Vital Signs Vital Sign Reading Time Taken Comments Blood Pressure 101/67 06/27/2024 12:49 PM SPECIAL SERVICES COORDINATOR Pulse 83 06/27/2024 12:49 PM SPECIAL SERVICES COORDINATOR Temperature 36.6 C (97.8 F) 06/20/2024 7:35 AM SPECIAL SERVICES COORDINATOR Respiratory Rate 15 06/20/2024 8:49 AM SPECIAL SERVICES COORDINATOR Oxygen Saturation 96% 06/20/2024 8:49 AM SPECIAL SERVICES COORDINATOR Inhaled Oxygen Concentration - - Weight 95.9 kg (211 lb 6.4 oz) 06/27/2024 12:49 PM SPECIAL SERVICES COORDINATOR Height 175.3 cm (5' 9 ) 06/27/2024 12:49 PM SPECIAL SERVICES COORDINATOR Body Mass Index 31.22 06/27/2024 12:49 PM SPECIAL SERVICES COORDINATOR Plan of Treatment Not on file Goals Goal Patient Goal Type Associated Problems Recent Progress Patient-Stated? Author CCM Chronic Pain Care Plan Chronic Care Management No change(06/20 7:42 AM SPECIAL SERVICES COORDINATOR) No Rita Landa RN Note: Problem: Chronic Pain Goals: 1. Minimize further functional decline 2. Maximize quality of life 3. Control pain Strategies: - Activity/exercise program recommendation - Conservative stepwise pain medicine strategy with multi-disciplinary approach - Recommend healthy lifestyle strategies and compensatory methods as needed Medical Devices Implanted Type Area Commercial Pest Control Representative Device Identifier Shelf Expiration Date Model / Serial / Lot [employer] Stent Graft Aortic Covered Tag [id number] Eptfe Nitinol [id number] - [id number] - [id number] Implanted:Qty : 1 on 05/02/2023 by Leo Mnazano MD at [facility] Graft N/A: Aorta [employer] [id number] 12/07/2025 [id number] / [id number] / [employer] Stent Graft Thoracic Side Branch Tag [id number] Eptfe Nitinol [id number] - [id number] - [id number] Implanted:Qty : 1 on 05/02/2023 by Leo Manzano MD at [facility] Stent Left: Subclavian [employer] [id number] 06/27/2025 [id number] / [id number] / [employer] Graft Stent [place] Tag L20cm Od37mm Thoracic Active Control [id number] - [id number] - [id number] Implanted:Qty : 1 on 06/05/2023 by Nikhil Samuel MD at [facility] Stent N/A: Descending Thoracic Aorta [employer] [id number] 04/12/2024 [id number] / [id number] / [employer] Zenith 36mm 20-30mm 16mm 180mm 9 Dissection Introducer Sheath [id number] - [id number] Implanted:Qty : 1 on 06/05/2023 by Nikhil Samuel MD at [facility] Stent N/A: Descending Thoracic Aorta [employer] [id number] 12/20/2025 [id number] / / [id number] [employer] Device Clsr Perclose Prostyle Sut-Mediatd Closure-Repai r Sys 91379-42 - [id number] Implanted:Qty : 3 on 05/02/2023 by Leo Manzano MD at [facility] Vascular Closure Device Left: Common Femoral Artery [employer] [id number] 09/26/2024 [id number] / / [id number] Description:Same lot number [employer] Device Clsr Perclose Prostyle Sut-Mediatd Closure-Repai r Sys 86059-14 - [id number] Implanted:Qty : 1 on 06/05/2023 by Nikhil Samuel MD at [facility] Left: Groin [employer] [id number] 12/27/2024 [id number] / / [id number] [employer] Device Clsr Perclose Prostyle Sut-Mediatd Closure-Repai r Sys 14643-05 - [id number] Implanted:Qty : 1 on 06/05/2023 by Nikhil Samuel MD at [facility] Left: Groin [employer] [id number] 12/27/2024 [id number] / / [id number] [employer] Ron Contour 6fr 26cm Large Inner Lumen Low Profile Bladder Ag Taper Latex Free 180-223 - [id number] Implanted:Qty : 1 on 09/27/2023 by Marcus Glass MD at [facility] Right: Ureter [employer] Ron 05/16/2026 [id number] / / [id number] [employer] Ron Contour 6fr 26cm Large Inner Lumen Low Profile Bladder Ag Taper Latex Free 180-223 - [id number] Implanted:Qty : 1 on 10/04/2023 by Otoniel Landa MD at [facility] Right: Ureter [employer] Ron 05/16/2026 [id number] / / [id number] Explanted Type Area Commercial Pest Control Representative Device Identifier Shelf Expiration Date Model / Serial / Lot [employer] Inlay [address] 6fr 28cm Pusher Fluoro Marker Atraumatic Insertion Latex Free [id number] - [id number] Implanted:Qty: 1 on 07/04/2023 by Marcus Gamboa MD at [facility] Explanted:Qty: 1 on 07/14/2023 by Stacia Su MD Stent Left: Ureter [employer] [id number] 04/14/2027 [id number] / / [id number] Procedures Procedure Name Priority Date/Time Associated Diagnosis Comments PAIN MGMT IMAGING SI JOINT BILATERAL ARTHROGRPHY Schedule Routine, Read Routine (OP Routine) 06/20/2024 8:41 AM SPECIAL SERVICES COORDINATOR Sacroiliitis (HCC) EGFR Timed 05/28/2024 3:36 AM SPECIAL SERVICES COORDINATOR BASIC METABOLIC PANEL Timed 05/28/2024 3:36 AM SPECIAL SERVICES COORDINATOR CBC WITHOUT DIFFERENTIAL Timed 05/28/2024 3:36 AM SPECIAL SERVICES COORDINATOR LIDOCAINE LEVEL Timed 05/28/2024 3:36 AM SPECIAL SERVICES COORDINATOR LIDOCAINE LEVEL Timed 05/27/2024 3:29 AM SPECIAL SERVICES COORDINATOR TYPE AND SCREEN Timed 05/27/2024 3:29 AM SPECIAL SERVICES COORDINATOR EGFR Routine 05/26/2024 4:38 AM SPECIAL SERVICES COORDINATOR LIDOCAINE LEVEL Timed 05/26/2024 4:38 AM SPECIAL SERVICES COORDINATOR BASIC METABOLIC PANEL Routine 05/26/2024 4:38 AM SPECIAL SERVICES COORDINATOR CBC WITHOUT DIFFERENTIAL Routine 05/26/2024 4:38 AM SPECIAL SERVICES COORDINATOR EGFR Routine 05/25/2024 4:20 PM SPECIAL SERVICES COORDINATOR BASIC METABOLIC PANEL Routine 05/25/2024 4:20 PM SPECIAL SERVICES COORDINATOR CBC WITHOUT DIFFERENTIAL Routine 05/25/2024 4:20 PM SPECIAL SERVICES COORDINATOR LIDOCAINE LEVEL Routine 05/25/2024 4:20 PM SPECIAL SERVICES COORDINATOR CRITICAL CARE Routine 05/25/2024 8:12 AM SPECIAL SERVICES COORDINATOR Abdominal pain POCT GLUCOSE DEVICE Routine 05/25/2024 4 :16 AM SPECIAL SERVICES COORDINATOR POCT GLUCOSE DEVICE Routine 05/24/2024 1 1:36 PM SPECIAL SERVICES COORDINATOR POCT GLUCOSE DEVICE Routine 05/24/2024 8 :50 PM SPECIAL SERVICES COORDINATOR CRITICAL CARE Routine 05/24/2024 8:47 PM SPECIAL SERVICES COORDINATOR Abdominal pain EGFR Routine 05/24/2024 5:43 PM SPECIAL SERVICES COORDINATOR DIFFERENTIAL AUTO Routine 05/24/2024 5:4 3 PM SPECIAL SERVICES COORDINATOR LACTATE, WHOLE BLOOD STAT 05/24/2024 5:43 PM SPECIAL SERVICES COORDINATOR AMYLASE Routine 05/24/2024 5:43 PM SPECIAL SERVICES COORDINATOR PHOSPHORUS Routine 05/24/2024 5:43 PM SPECIAL SERVICES COORDINATOR MAGNESIUM Routine 05/24/2024 5:43 PM SPECIAL SERVICES COORDINATOR COMPREHENSIVE METABOLIC PANEL Routine 05/24/2024 5:43 PM SPECIAL SERVICES COORDINATOR CBC WITH AUTO DIFFERENTIAL Routine 05/24/2024 5:43 PM SPECIAL SERVICES COORDINATOR POCT GLUCOSE DEVICE Routine 05/24/2024 3 :52 PM SPECIAL SERVICES COORDINATOR POCT GLUCOSE DEVICE Routine 05/24/2024 1 1:06 AM SPECIAL SERVICES COORDINATOR POCT GLUCOSE DEVICE Routine 05/24/2024 7 :46 AM SPECIAL SERVICES COORDINATOR CRITICAL CARE Routine 05/24/2024 6:15 AM SPECIAL SERVICES COORDINATOR Abdominal pain POCT GLUCOSE DEVICE Routine 05/24/2024 3 :23 AM SPECIAL SERVICES COORDINATOR POCT GLUCOSE DEVICE Routine 05/23/2024 1 1:04 PM SPECIAL SERVICES COORDINATOR EGFR STAT 05/23/2024 8:33 PM SPECIAL SERVICES COORDINATOR DIFFERENTIAL AUTO STAT 05/23/2024 8:3 3 PM SPECIAL SERVICES COORDINATOR PROTIME-INR STAT 05/23/2024 8:33 PM SPECIAL SERVICES COORDINATOR APTT STAT 05/23/2024 8:33 PM SPECIAL SERVICES COORDINATOR TYPE AND SCREEN Timed 05/23/2024 8:33 PM SPECIAL SERVICES COORDINATOR CBC WITH AUTO DIFFERENTIAL STAT 05/23/2024 8:33 PM SPECIAL SERVICES COORDINATOR CREATINE KINASE (CK), TOTAL STAT 05/23/2024 8:33 PM SPECIAL SERVICES COORDINATOR LACTATE STAT 05/23/2024 8:33 PM SPECIAL SERVICES COORDINATOR CALCIUM, IONIZED STAT 05/23/2024 8:33 PM SPECIAL SERVICES COORDINATOR PHOSPHORUS STAT 05/23/2024 8:33 PM SPECIAL SERVICES COORDINATOR MAGNESIUM STAT 05/23/2024 8:33 PM SPECIAL SERVICES COORDINATOR COMPREHENSIVE METABOLIC PANEL STAT 05/23/2024 8:[address] CT BODY OUTSIDE REFERENCE Routine 05/23/2024 8:[address] CT BODY OUTSIDE CONSULT Routine 05/23/2024 8:18 PM SPECIAL SERVICES COORDINATOR POCT GLUCOSE DEVICE Routine 05/23/2024 7 :47 PM SPECIAL SERVICES COORDINATOR POCT RAPID HIV ANTIBODY COMMUNITY SCREENING-PAPA ELIGIBLE Routine 05/21/2024 7:35 PM SPECIAL SERVICES COORDINATOR OXYCODONE CONFIRMATION, URINE Routine 05/21/2024 5:34 PM SPECIAL SERVICES COORDINATOR FENTANYL CONFIRMATION, MS URINE Routine 05/21/2024 5:34 PM SPECIAL SERVICES COORDINATOR AMPHETAMINE, URINE, CONFIRMATION Routine 05/21/2024 5:34 PM SPECIAL SERVICES COORDINATOR URINALYSIS, MICROSCOPIC ONLY STAT 05/21/2024 5:34 PM SPECIAL SERVICES COORDINATOR DRUGS OF ABUSE SCREEN, URINE WITH REFLEX CONFIRMATION Routine 05/21/2024 5:34 PM SPECIAL SERVICES COORDINATOR URINALYSIS AND REFLEX TO MICROSCOPIC STAT 05/21/2024 5:34 PM SPECIAL SERVICES COORDINATOR SEPSIS LACTATE WITH REFLEX STAT 05/21/2024 4:33 PM SPECIAL SERVICES COORDINATOR EGFR STAT 05/21/2024 3:41 PM SPECIAL SERVICES COORDINATOR DIFFERENTIAL AUTO STAT 05/21/2024 3:4 1 PM SPECIAL SERVICES COORDINATOR LIPASE STAT 05/21/2024 3:41 PM SPECIAL SERVICES COORDINATOR COMPREHENSIVE METABOLIC PANEL STAT 05/21/2024 3:41 PM SPECIAL SERVICES COORDINATOR CBC WITH AUTO DIFFERENTIAL STAT 05/21/2024 3:41 PM SPECIAL SERVICES COORDINATOR ECG 12-LEAD STAT 05/21/2024 2:24 PM SPECIAL SERVICES COORDINATOR ECG 12-LEAD STAT 05/19/2024 11:55 PM SPECIAL SERVICES COORDINATOR XR CHEST PA LATERAL 2 VIEWS ED 05/19/2024 10:34 PM SPECIAL SERVICES COORDINATOR CTA CHEST ABDOMEN PELVIS ED 05/19/2024 10:20 PM SPECIAL SERVICES COORDINATOR EGFR STAT 05/19/2024 9:12 PM SPECIAL SERVICES COORDINATOR DIFFERENTIAL AUTO Timed 05/19/2024 9:1 2 PM SPECIAL SERVICES COORDINATOR TROPONIN I HIGH-SENSITIVITY SERIES (BASELINE, 2HR, 4HR, 6HR) STAT 05/19/2024 9:12 PM SPECIAL SERVICES COORDINATOR TYPE AND SCREEN STAT 05/19/2024 9:12 PM SPECIAL SERVICES COORDINATOR APTT STAT 05/19/2024 9:12 PM SPECIAL SERVICES COORDINATOR PROTIME-INR STAT 05/19/2024 9:12 PM SPECIAL SERVICES COORDINATOR COMPREHENSIVE METABOLIC PANEL STAT 05/19/2024 9:12 PM SPECIAL SERVICES COORDINATOR CBC WITH AUTO DIFFERENTIAL Timed 05/19/2024 9:12 PM SPECIAL SERVICES COORDINATOR HEPATITIS C ANTIBODY Routine 09/06/2023 11:15 AM CDT from Last 3 Months or Most Recently Relevant to Health Maintenance Results * Imaging SI Joint Injection Bilateral (45418) (06/20/2024 8:41 AM SPECIAL SERVICES COORDINATOR) Narrative [facility] - 06/20/2024 8:41 AM SPECIAL SERVICES COORDINATOR The images from this study are not interpreted by Radiology. Please refer to the physician's procedure / OR operative note. us Adrianne Adams MD PhD IMG PAIN MGMT PROCEDURE S Final Result [facility] * eGFR (05/28/2024 3:36 AM SPECIAL SERVICES COORDINATOR) eGFR >90 >=60 mL/min/1. 73 m2 Comment: [...] last reviewed 2021. Blood 05/28/2024 3:36 AM SPECIAL SERVICES COORDINATOR 05/28/2024 4:30 AM SPECIAL SERVICES COORDINATOR Leo Manzano MD LAB BLOOD ORDERABLES Final Result Performing Organization Address City/[facility]/ZIP Co de Phone Number [facility] Department [place] [address] * (ABNORMAL) Lidocaine level (05/28/2024 3:36 AM SPECIAL SERVICES COORDINATOR) Lidocaine (Xylocaine) <1.0(L) 1.5 - 5.0 mcg/mL Blood 05/28/2024 3:36 AM SPECIAL SERVICES COORDINATOR 05/28/2024 4:30 AM SPECIAL SERVICES COORDINATOR Gonzalez Lamar DO LAB BLOOD ORDERABLES Fin al Result [facility] [place] [address] * (ABNORMAL) CBC without differential (05/28/2024 3:36 AM SPECIAL SERVICES COORDINATOR) WBC 5.0 3.8 - 9.9 K/cumm Hgb 11.7(L) 13.0 - 17.5 g/dL [facility] Hct 35.3(L) 38.9 - 50.3 % [facility] Plt 240 150 - 400 K/cumm [facility] MPV 9.5 9.1 - 12.3 fL [facility] RBC 3.82(L) 4.30 - 5.80 M/cumm [facility] MCV 92.4 81.3 - 96.4 fL [facility] MCH 30.6 27.1 - 33.3 pg [facility] MCHC 33.1 32.3 - 35.7 g/dL [facility] RDW CV 13.3 11.1 - 14.9 % [facility] RDW SD 45.1 35.7 - 48.1 fL [facility] NRBC abs 0.00 0.00 - 0.01 K/cumm [facility] Blood 05/28/2024 3:36 AM SPECIAL SERVICES COORDINATOR 05/28/2024 4:32 AM SPECIAL SERVICES COORDINATOR Leo Manzano MD LAB BLOOD ORDERABLES Final Result [facility] Department [place] [address] * Basic metabolic panel (05/28/2024 3:36 AM SPECIAL SERVICES COORDINATOR) Sodium 140 135 - 145 mmol/L Potassium, pl 4.0 3.3 - 4.9 mmol/L [facility] Chloride 103 97 - 110 mmol/L [facility] CO2 25 22 - 32 mmol/L [facility] Anion gap 12 2 - 15 mmol/L [facility] BUN 18 6 - 25 mg/dL [facility] Creatinine 1.10 0.80 - 1.30 mg/dL [facility] Glucose 85 70 - 199 mg/dL [facility] Comment: Interpretive Data Fasting glucose >/= 126 [...] 8.5 - 10.3 mg/dL [facility] Blood 05/28/2024 3:36 AM SPECIAL SERVICES COORDINATOR 05/28/2024 4:30 AM SPECIAL SERVICES COORDINATOR us Leo Manzano MD LAB BLOOD ORDERABLES Final Result Performing Organization Address City/[facility] Co de Phone Number [facility] [place] [address] * Lidocaine level (05/27/2024 3:29 AM SPECIAL SERVICES COORDINATOR) Lidocaine (Xylocaine) 1.5 1.5 - 5.0 mcg/mL Blood 05/27/2024 3:29 AM SPECIAL SERVICES COORDINATOR 05/27/2024 4:21 AM SPECIAL SERVICES COORDINATOR Gonzalez Lamar DO LAB BLOOD ORDERABLES Fin al Result Performing Organization Address [facility] de Phone Number [facility] [place] [address] * Type and screen (05/27/2024 3:29 AM SPECIAL SERVICES COORDINATOR) Ellen, indirect Negative ABO Rh A Positive [facility] Blood 05/27/2024 3:29 AM SPECIAL SERVICES COORDINATOR 05/27/2024 4:33 AM SPECIAL SERVICES COORDINATOR Narrative [facility] - 05/27/2024 5:33 AM SPECIAL SERVICES COORDINATOR Has the patient had Daratumumab or Isatuximab in the past 6 months?->Unknown Moriah Amin NP LAB BLOOD BANK TEST ORDERABLE S Final Result Performing Organization Address [facility] Co de Phone Number [facility] [place] [address] * eGFR (05/26/2024 4:38 AM SPECIAL SERVICES COORDINATOR) eGFR 86 >=60 mL/min/1. 73 m2 Comment: [...] last reviewed 2021. Blood 05/26/2024 4:38 AM SPECIAL SERVICES COORDINATOR 05/26/2024 5:46 AM SPECIAL SERVICES COORDINATOR us Moriah Amin AGRONOMIST LAB BLOOD ORDERABLES Final Re sult Performing Organization Address City/[facility]/ZIP Co de Phone Number [facility] Department [place] [address] * Lidocaine level (05/26/2024 4:38 AM SPECIAL SERVICES COORDINATOR) Lidocaine (Xylocaine) 1.8 1.5 - 5.0 mcg/mL Blood 05/26/2024 4:38 AM SPECIAL SERVICES COORDINATOR 05/26/2024 5:46 AM SPECIAL SERVICES COORDINATOR us Gonzalez Lamar DO LAB BLOOD ORDERABLES Fin al Result Performing Organization Address City/[facility]/ZIP Co de Phone Number [facility] Department [place] [address] * (ABNORMAL) CBC without differential (05/26/2024 4:38 AM SPECIAL SERVICES COORDINATOR) [facility] WBC 5.5 3.8 - 9.9 K/cumm Hgb 11.5(L) 13.0 - 17.5 g/dL [facility] Hct 34.0(L) 38.9 - 50.3 % [facility] Plt 222 150 - 400 K/cumm [facility] MPV 9.7 9.1 - 12.3 fL [facility] RBC 3.67(L) 4.30 - 5.80 M/cumm [facility] MCV 92.6 81.3 - 96.4 fL [facility] MCH 31.3 27.1 - 33.3 pg [facility] MCHC 33.8 32.3 - 35.7 g/dL [facility] RDW CV 13.3 11.1 - 14.9 % [facility] RDW SD 45.5 35.7 - 48.1 fL [facility] NRBC abs 0.00 0.00 - 0.01 K/cumm [facility] Blood 05/26/2024 4:38 AM SPECIAL SERVICES COORDINATOR 05/26/2024 5:46 AM SPECIAL SERVICES COORDINATOR Moriah Amin NP LAB BLOOD ORDERABLES Final Re sult [facility] Department [place] [address] * Basic metabolic panel (05/26/2024 4:38 AM SPECIAL SERVICES COORDINATOR) [facility] Sodium 141 135 - 145 mmol/L Potassium, pl 3.9 3.3 - 4.9 mmol/L [facility] Chloride 107 97 - 110 mmol/L [facility] CO2 26 22 - 32 mmol/L [facility] Anion gap 8 2 - 15 mmol/L [facility] BUN 15 6 - 25 mg/dL [facility] Creatinine 1.16 0.80 - 1.30 mg/dL [facility] Glucose 78 70 - 199 mg/dL [facility] Comment: Interpretive Data Fasting glucose >/= 126 [...] Calcium 8.6 8.5 - 10.3 mg/dL [facility] Blood 05/26/2024 4:38 AM SPECIAL SERVICES COORDINATOR 05/26/2024 5:46 AM SPECIAL SERVICES COORDINATOR us Moriah Amin NP LAB BLOOD ORDERABLES Final Re sult [facility] Department [place] [address] * eGFR (05/25/2024 4:20 PM SPECIAL SERVICES COORDINATOR) eGFR >90 >=60 mL/min/1. 73 m2 Comment: [...] last reviewed 2021. Blood 05/25/2024 4:20 PM SPECIAL SERVICES COORDINATOR 05/25/2024 4:33 PM SPECIAL SERVICES COORDINATOR us Moriah Amin AGRONOMIST LAB BLOOD ORDERABLES Final Re sult Performing Organization Address [facility]/ZIP Co de Phone Number [facility] [place] [address] * Lidocaine level (05/25/2024 4:20 PM SPECIAL SERVICES COORDINATOR) [facility] Lidocaine (Xylocaine) 2.1 1.5 - 5.0 mcg/mL Blood 05/25/2024 4:20 PM SPECIAL SERVICES COORDINATOR 05/25/2024 4:33 PM SPECIAL SERVICES COORDINATOR Narrative [facility] - 05/25/2024 5:02 PM SPECIAL SERVICES COORDINATOR Draw 24 hours after infusion started. Moriah Amin AGRONOMIST LAB BLOOD ORDERABLES Final Re sult Performing Organization Address [facility] Co de Phone Number [facility] [place] [address] * (ABNORMAL) CBC without differential (05/25/2024 4:20 PM SPECIAL SERVICES COORDINATOR) [facility] WBC 6.1 3.8 - 9.9 K/cumm Hgb 12.1(L) 13.0 - 17.5 g/dL [facility] Hct 36.3(L) 38.9 - 50.3 % [facility] Plt 246 150 - 400 K/cumm [facility] MPV 9.6 9.1 - 12.3 fL [facility] RBC 4.03(L) 4.30 - 5.80 M/cumm [facility] MCV 90.1 81.3 - 96.4 fL [facility] MCH 30.0 27.1 - 33.3 pg [facility] MCHC 33.3 32.3 - 35.7 g/dL [facility] RDW CV 13.3 11.1 - 14.9 % [facility] RDW SD 44.0 35.7 - 48.1 fL [facility] NRBC abs 0.00 0.00 - 0.01 K/cumm [facility] Blood 05/25/2024 4:20 PM SPECIAL SERVICES COORDINATOR 05/25/2024 4:33 PM SPECIAL SERVICES COORDINATOR Moriah Amin AGRONOMIST LAB BLOOD ORDERABLES Final Re sult Performing Organization Address City/[facility] Co de Phone Number [facility] Department [place] [address] * Basic metabolic panel (05/25/2024 4:20 PM SPECIAL SERVICES COORDINATOR) [facility] Sodium 140 135 - 145 mmol/L Potassium, pl 3.9 3.3 - 4.9 mmol/L [facility] Chloride 106 97 - 110 mmol/L [facility] CO2 25 22 - 32 mmol/L [facility] Anion gap 9 2 - 15 mmol/L [facility] BUN 10 6 - 25 mg/dL [facility] Creatinine 0.92 0.80 - 1.30 mg/dL [facility] Glucose 98 70 - 199 mg/dL [facility] Comment: Interpretive Data Fasting glucose >/= 126 [...] 8.5 - 10.3 mg/dL [facility] Blood 05/25/2024 4:20 PM SPECIAL SERVICES COORDINATOR 05/25/2024 4:33 PM SPECIAL SERVICES COORDINATOR Moriah Amin AGRONOMIST LAB BLOOD ORDERABLES Final Re sult Performing Organization Address City/[facility] Co de Phone Number [facility] Department [place] [address] * Critical Care (05/25/2024 8:12 AM SPECIAL SERVICES COORDINATOR) Narrative Rafiq Rodriguez MD - 05/25/2024 8:12 AM SPECIAL SERVICES COORDINATOR Moriah Amin NP 05/25/2024 3:35 PM Critical [...] plan with the patient's team and other medical/it support consultant staff. This time was in addition to and separate from care provided by other practitioners on this day of service. us Moriah Amin AGRONOMIST IN CLINIC/BEDSIDE ORDERABLES Final Result * POCT glucose (05/25/2024 4:16 AM SPECIAL SERVICES COORDINATOR) Glucose, POC 117 70 - 199 mg/dL Blood 05/25/2024 4:16 AM SPECIAL SERVICES COORDINATOR 05/25/2024 4:16 AM SPECIAL SERVICES COORDINATOR Gonzalez Lamar DO LAB POCT ORDERABLES - DE VICE Final Result Performing Organization Address [facility] Co de Phone Number [facility] Department [place] [address] * POCT glucose (05/24/2024 11:36 PM SPECIAL SERVICES COORDINATOR) Glucose, POC 116 70 - 199 mg/dL Blood 05/24/2024 11:3 6 PM SPECIAL SERVICES COORDINATOR 05/24/2024 11:36 PM SPECIAL SERVICES COORDINATOR Gonzalez Lamar DO LAB POCT ORDERABLES - DE VICE Final Result Performing Organization Address [facility] Co de Phone Number [facility] Department [place] [address] * POCT glucose (05/24/2024 8:50 PM SPECIAL SERVICES COORDINATOR) Glucose, POC 123 70 - 199 mg/dL Blood 05/24/2024 8:50 PM SPECIAL SERVICES COORDINATOR 05/24/2024 8:50 PM SPECIAL SERVICES COORDINATOR Gonzalez Lamar DO LAB POCT ORDERABLES - DE VICE Final Result [facility] Department [place] [address] * Critical Care (05/24/2024 8:47 PM SPECIAL SERVICES COORDINATOR) Narrative Ag Lemos MD - 05/24/2024 8:47 PM SPECIAL SERVICES COORDINATOR Ag Lemos MD 05/25/2024 6:53 AM Critical [...] plan with the ICU team and other medical/it support consultant staff, making frequent assessments and decisions [...] Final Result * eGFR (05/24/2024 5:43 PM SPECIAL SERVICES COORDINATOR) [facility] eGFR >90 >=60 mL/min/1. 73 m2 [...] last reviewed 2021. Blood 05/24/2024 5:43 PM SPECIAL SERVICES COORDINATOR 05/24/2024 6:00 PM SPECIAL SERVICES COORDINATOR us Gonzalez Lamar DO LAB BLOOD ORDERABLES Fin al Result [facility] Department [place] [address] * Differential, auto (05/24/2024 5:43 PM SPECIAL SERVICES COORDINATOR) Pathologist [facility] Neutrophil abs 4.9 1.5 - 6.5 K/cumm Imm gran abs 0.0 0.0 - 0.1 K/cumm [facility] Lymphocyte abs 1.4 0.8 - 3.3 K/cumm [facility] Monocyte abs 0.8 0.2 - 0.8 K/cumm [facility] Eosinophil abs 0.1 0.0 - 0.5 K/cumm [facility] Basophil abs 0.1 0.0 - 0.1 K/cumm [facility] Neutrophil pct 67.4 % [facility] Comment: Interpretive Data Percent cell count reference ranges are not reported, since discordance with absolute values may lead to misinterpretation of CBC data. Current Interpretive Data was last revised on 2017. Imm gran pct 0.4 % [facility] Comment: Interpretive Data Percent cell count reference ranges are not reported, since discordance with absolute values may lead to misinterpretation of CBC data. Current Interpretive Data was last revised on 2017. Lymphocyte pct 19.4 % [facility] Comment: Interpretive Data Percent cell count reference ranges are not reported, since discordance with absolute values may lead to misinterpretation of CBC data. Current Interpretive Data was last revised on 2017. Monocyte pct 11.3 % [facility] Comment: Interpretive Data Percent cell count reference ranges are not reported, since discordance with absolute values may lead to misinterpretation of CBC data. Current Interpretive Data was last revised on 2017. Eosinophil pct 0.8 % [facility] Comment: Interpretive Data Percent cell count reference ranges are not reported, since discordance with absolute values may lead to misinterpretation of CBC data. Current Interpretive Data was last revised on 2017. Basophil pct 0.7 % [facility] Comment: Interpretive Data Percent cell count reference ranges are not reported, since discordance with absolute values may lead to misinterpretation of CBC data. Current Interpretive Data was last revised on 2017. Blood 05/24/2024 5:43 PM SPECIAL SERVICES COORDINATOR 05/24/2024 6:00 PM SPECIAL SERVICES COORDINATOR us Gonzalez Lamar DO LAB BLOOD ORDERABLES Fin al Result [facility] Department [place] [address] * (ABNORMAL) CBC with auto differential (05/24/2024 5:43 PM SPECIAL SERVICES COORDINATOR) WBC 7.2 3.8 - 9.9 K/cumm Hgb 11.5(L) 13.0 - 17.5 g/dL [facility] Hct 34.7(L) 38.9 - 50.3 % [facility] Plt 233 150 - 400 K/cumm [facility] MPV 9.2 9.1 - 12.3 fL [facility] RBC 3.77(L) 4.30 - 5.80 M/cumm [facility] MCV 92.0 81.3 - 96.4 fL [facility] MCH 30.5 27.1 - 33.3 pg [facility] MCHC 33.1 32.3 - 35.7 g/dL [facility] RDW CV 13.0 11.1 - 14.9 % [facility] RDW SD 43.8 35.7 - 48.1 fL [facility] NRBC abs 0.00 0.00 - 0.01 K/cumm [facility] Blood 05/24/2024 5:43 PM SPECIAL SERVICES COORDINATOR 05/24/2024 6:00 PM SPECIAL SERVICES COORDINATOR Gonzalez Lamar DO LAB BLOOD ORDERABLES Fin al Result Performing Organization Address [facility] de Phone Number [facility] Department [place] [address] * Lactate, whole blood (05/24/2024 5:43 PM SPECIAL SERVICES COORDINATOR) Lactate, bld 0.7 0.7 - 2.0 mmol/L Blood 05/24/2024 5:43 PM SPECIAL SERVICES COORDINATOR 05/24/2024 5:50 PM SPECIAL SERVICES COORDINATOR Moriah Amin AGRONOMIST LAB BLOOD ORDERABLES Final Re sult Performing Organization Address [facility] de Phone Number [facility] Department [place] [address] * Phosphorus (05/24/2024 5:43 PM SPECIAL SERVICES COORDINATOR) Phosphorus, pl 2.7 2.3 - 4.5 mg/dL Blood 05/24/2024 5:43 PM SPECIAL SERVICES COORDINATOR 05/24/2024 6:00 PM SPECIAL SERVICES COORDINATOR Gonzalez Lamar DO LAB BLOOD ORDERABLES Fin al Result Performing Organization Address [facility] de Phone Number [facility] [place] [address] * Magnesium (05/24/2024 5:43 PM SPECIAL SERVICES COORDINATOR) [facility] Magnesium 2.0 1.4 - 2.5 mg/dL Blood 05/24/2024 5:43 PM SPECIAL SERVICES COORDINATOR 05/24/2024 6:00 PM SPECIAL SERVICES COORDINATOR Gonzalez Lamar DO LAB BLOOD ORDERABLES Fin al Result [facility] [place] [address] * Amylase (05/24/2024 5:43 PM SPECIAL SERVICES COORDINATOR) [facility] Amylase 35 30 - 99 Units/L Blood 05/24/2024 5:43 PM SPECIAL SERVICES COORDINATOR 05/24/2024 6:00 PM SPECIAL SERVICES COORDINATOR Moriah Amin AGRONOMIST LAB BLOOD ORDERABLES Final Re sult Performing Organization Address City/[facility]/ZIP [place] [address] * Comprehensive metabolic panel (05/24/2024 5:43 PM SPECIAL SERVICES COORDINATOR) [facility] Sodium 140 135 - 145 mmol/L Potassium, pl 3.9 3.3 - 4.9 mmol/L [facility] Chloride 105 97 - 110 mmol/L [facility] CO2 25 22 - 32 mmol/L [facility] Anion gap 10 2 - 15 mmol/L [facility] BUN 6 6 - 25 mg/dL [facility] Creatinine 0.88 0.80 - 1.30 mg/dL [facility] Glucose 86 70 - 199 mg/dL [facility] Comment: Interpretive Data Fasting glucose >/= 126 [...] Calcium 8.9 8.5 - 10.3 mg/dL [facility] Bilirubin, total 0.8 0.1 - 1.2 mg/dL [facility] Protein, pl 6.7 6.5 - 8.5 g/dL [facility] Albumin 4.1 3.5 - 5.0 g/dL [facility] Alk phos 81 40 - 130 Units/L [facility] ALT 15 7 - 55 Units/L [facility] AST 17 10 - 50 Units/L [facility] Blood 05/24/2024 5:43 PM SPECIAL SERVICES COORDINATOR 05/24/2024 6:00 PM SPECIAL SERVICES COORDINATOR Gonzalez Lamar DO LAB BLOOD ORDERABLES Fin al Result Performing Organization Address City/[facility]/ZIP Co de Phone Number [facility] [place] [address] * POCT glucose (05/24/2024 3:52 PM SPECIAL SERVICES COORDINATOR) Glucose, POC 84 70 - 199 mg/dL Blood 05/24/2024 3:52 PM SPECIAL SERVICES COORDINATOR 05/24/2024 3:52 PM SPECIAL SERVICES COORDINATOR Gonzalez Lamar DO LAB POCT ORDERABLES - DE VICE Final Result Performing Organization Address [facility]/ZIP Co de Phone Number [facility] [place] [address] * POCT glucose (05/24/2024 11:06 AM SPECIAL SERVICES COORDINATOR) Glucose, POC 138 70 - 199 mg/dL Blood 05/24/2024 11:0 6 AM SPECIAL SERVICES COORDINATOR 05/24/2024 11:06 AM SPECIAL SERVICES COORDINATOR Gonzalez Lamar DO LAB POCT ORDERABLES - DE VICE Final Result Performing Organization Address [facility] Co de Phone Number [facility] Department [place] [address] * POCT glucose (05/24/2024 7:46 AM SPECIAL SERVICES COORDINATOR) Glucose, POC 86 70 - 199 mg/dL Blood 05/24/2024 7:46 AM SPECIAL SERVICES COORDINATOR 05/24/2024 7:46 AM SPECIAL SERVICES COORDINATOR Gonzalez Lamar DO LAB POCT ORDERABLES - DE VICE Final Result Performing Organization Address [facility] Phone Number [facility] Department [place] [address] * Critical Care (05/24/2024 6:15 AM SPECIAL SERVICES COORDINATOR) Narrative Rafiq Rodriguez MD - 05/24/2024 6:15 AM SPECIAL SERVICES COORDINATOR Moriah Amin NP 05/24/2024 5:42 PM Critical [...] plan with the ICU team and other medical/it support consultant staff, making frequent assessments and decisions [...] Result * POCT glucose (05/24/2024 3:23 AM SPECIAL SERVICES COORDINATOR) Glucose, POC 85 70 - 199 mg/dL Blood 05/24/2024 3:23 AM SPECIAL SERVICES COORDINATOR 05/24/2024 3:23 AM SPECIAL SERVICES COORDINATOR Gonzalez Lamar DO LAB POCT ORDERABLES - DE VICE Final Result Performing Organization Address [facility] Phone Number [facility] [place] [address] * POCT glucose (05/23/2024 11:04 PM SPECIAL SERVICES COORDINATOR) Pathologist [facility] Glucose, POC 84 70 - 199 mg/dL Blood 05/23/2024 11:0 4 PM SPECIAL SERVICES COORDINATOR 05/23/2024 11:04 PM SPECIAL SERVICES COORDINATOR Gonzalez Lamar DO LAB POCT ORDERABLES - DE VICE Final Result Performing Organization Address [facility] Phone Number [facility] [place] [address] * Lactate (05/23/2024 8:33 PM SPECIAL SERVICES COORDINATOR) [facility] Lactate 0.7 0.7 - 2.0 mmol/L Blood 05/23/2024 8:33 PM SPECIAL SERVICES COORDINATOR 05/23/2024 9:39 PM SPECIAL SERVICES COORDINATOR Gonzalez Lamar DO LAB BLOOD ORDERABLES Fin al Result Performing Organization Address [facility] Phone Number [facility] [place] [address] * eGFR (05/23/2024 8:33 PM SPECIAL SERVICES COORDINATOR) [facility] eGFR >90 >=60 mL/min/1. 73 m2 [...] last reviewed 2021. Blood 05/23/2024 8:33 PM SPECIAL SERVICES COORDINATOR 05/23/2024 9:17 PM SPECIAL SERVICES COORDINATOR Gonzalez Lamar DO LAB BLOOD ORDERABLES Fin al Result [facility] Department [place] [address] * Differential, auto (05/23/2024 8:33 PM SPECIAL SERVICES COORDINATOR) Neutrophil abs 3.9 1.5 - 6.5 K/cumm Imm gran abs 0.0 0.0 - 0.1 K/cumm [facility] Lymphocyte abs 1.9 0.8 - 3.3 K/cumm [facility] Monocyte abs 0.8 0.2 - 0.8 K/cumm [facility] Eosinophil abs 0.0 0.0 - 0.5 K/cumm [facility] Basophil abs 0.0 0.0 - 0.1 K/cumm [facility] Neutrophil pct 58.1 % [facility] Comment: Interpretive Data Percent cell count reference ranges are not reported, since discordance with absolute values may lead to misinterpretation of CBC data. Current Interpretive Data was last revised on 2017. Imm gran pct 0.4 % [facility] Comment: Interpretive Data Percent cell count reference ranges are not reported, since discordance with absolute values may lead to misinterpretation of CBC data. Current Interpretive Data was last revised on 2017. Lymphocyte pct 28.1 % [facility] Comment: Interpretive Data Percent cell count reference ranges are not reported, since discordance with absolute values may lead to misinterpretation of CBC data. Current Interpretive Data was last revised on 2017. Monocyte pct 12.4 % [facility] Comment: Interpretive Data Percent cell count reference ranges are not reported, since discordance with absolute values may lead to misinterpretation of CBC data. Current Interpretive Data was last revised on 2017. Eosinophil pct 0.4 % [facility] Comment: Interpretive Data Percent cell count reference ranges are not reported, since discordance with absolute values may lead to misinterpretation of CBC data. Current Interpretive Data was last revised on 2017. Basophil pct 0.6 % [facility] Comment: Interpretive Data Percent cell count reference ranges are not reported, since discordance with absolute values may lead to misinterpretation of CBC data. Current Interpretive Data was last revised on 2017. Blood 05/23/2024 8:33 PM SPECIAL SERVICES COORDINATOR 05/23/2024 9:29 PM SPECIAL SERVICES COORDINATOR us Gonzalez Lamar DO LAB BLOOD ORDERABLES Fin al Result [facility] [place] [address] * (ABNORMAL) Calcium, ionized (05/23/2024 8:33 PM SPECIAL SERVICES COORDINATOR) Calcium, Ionized 4.48(L) 4.50 - 5.10 mg/dL Blood 05/23/2024 8:33 PM SPECIAL SERVICES COORDINATOR 05/23/2024 9:17 PM SPECIAL SERVICES COORDINATOR Gonzalez Lamar DO LAB BLOOD ORDERABLES Fin al Result [facility] Department [place] [address] * (ABNORMAL) CBC with auto differential (05/23/2024 8:33 PM SPECIAL SERVICES COORDINATOR) [facility] WBC 6.8 3.8 - 9.9 K/cumm Hgb 11.4(L) 13.0 - 17.5 g/dL [facility] Hct 33.7(L) 38.9 - 50.3 % [facility] Plt 237 150 - 400 K/cumm [facility] MPV 9.5 9.1 - 12.3 fL [facility] RBC 3.80(L) 4.30 - 5.80 M/cumm [facility] MCV 88.7 81.3 - 96.4 fL [facility] MCH 30.0 27.1 - 33.3 pg [facility] MCHC 33.8 32.3 - 35.7 g/dL [facility] RDW CV 13.0 11.1 - 14.9 % [facility] RDW SD 42.2 35.7 - 48.1 fL [facility] NRBC abs 0.00 0.00 - 0.01 K/cumm [facility] Blood 05/23/2024 8:33 PM SPECIAL SERVICES COORDINATOR 05/23/2024 9:29 PM SPECIAL SERVICES COORDINATOR Gonzalez Lamar DO LAB BLOOD ORDERABLES Fin al Result Performing Organization Address [facility] Co de Phone Number [facility] Department [place] [address] * aPTT (05/23/2024 8:33 PM SPECIAL SERVICES COORDINATOR) [facility] aPTT 31 28 - 38 sec Comment: Interpretive Data Heparin therapeutic range: 66.0 - 100.0 seconds. Range based on correlation with therapeutic heparin activity range of 0.3 - 0.7 Units/mL. Current interpretive data was last revised on 2023. Blood 05/23/2024 8:33 PM SPECIAL SERVICES COORDINATOR 05/23/2024 9:20 PM SPECIAL SERVICES COORDINATOR Gonzalez Lamar DO LAB BLOOD ORDERABLES Fin al Result Performing Organization Address [facility] Co de Phone Number [facility] [place] [address] * (ABNORMAL) Protime-INR (05/23/2024 8:33 PM SPECIAL SERVICES COORDINATOR) Pathologist [facility] PT 14.6(H) 9.7 - 13.0 sec INR 1.34(H) 0.90 - 1.20 [facility] Comment: Interpretive data Oral anticoagulant therapeutic ranges: Venous thromboembolism prophylaxis or treatment: 2.0-3.0 CARDIOLOGY Standard range: 2.0-3.0 High-intensity range: 2.5-3.5 Refer to indication-specific guidelines for appropriate target ranges for prosthetic heart valve replacement. Current interpretive data was last revised on 2019. Blood 05/23/2024 8:33 PM SPECIAL SERVICES COORDINATOR 05/23/2024 9:20 PM SPECIAL SERVICES COORDINATOR Gonzalez Lamar DO LAB BLOOD ORDERABLES Fin al Result Performing Organization Address City/[facility]/ZIP Co de Phone Number [facility] [place] [address] * Type and screen (05/23/2024 8:33 PM SPECIAL SERVICES COORDINATOR) Pathologist [facility] Ellen, indirect Negative ABO Rh A Positive [facility] Blood 05/23/2024 8:33 PM SPECIAL SERVICES COORDINATOR 05/23/2024 9:31 PM SPECIAL SERVICES COORDINATOR Narrative [facility] - 05/23/2024 10:36 PM SPECIAL SERVICES COORDINATOR Has the patient had Daratumumab or Isatuximab in the past 6 months?->Unknown Moriah Amin NP LAB BLOOD BANK TEST ORDERABLE [place] [address] * Phosphorus (05/23/2024 8:33 PM SPECIAL SERVICES COORDINATOR) Pathologist [facility] Phosphorus, pl 2.5 2.3 - 4.5 mg/dL Blood 05/23/2024 8:33 PM SPECIAL SERVICES COORDINATOR 05/23/2024 9:17 PM SPECIAL SERVICES COORDINATOR Gonzalez Lamar DO LAB BLOOD ORDERABLES Fin al Result Performing Organization Address [facility] de Phone Number [facility] [place] [address] * Magnesium (05/23/2024 8:33 PM SPECIAL SERVICES COORDINATOR) [facility] Magnesium 2.0 1.4 - 2.5 mg/dL Blood 05/23/2024 8:33 PM SPECIAL SERVICES COORDINATOR 05/23/2024 9:17 PM SPECIAL SERVICES COORDINATOR Gonzalez Lamar DO LAB BLOOD ORDERABLES Fin al Result Performing Organization Address [facility] de Phone Number [facility] [place] [address] * Creatine kinase (CK), total (05/23/2024 8:33 PM SPECIAL SERVICES COORDINATOR) [facility] CK 159 40 - 300 Units/L Blood 05/23/2024 8:33 PM SPECIAL SERVICES COORDINATOR 05/23/2024 9:17 PM SPECIAL SERVICES COORDINATOR Gonzalez Otoniel Lamar DO LAB BLOOD ORDERABLES Fin al Result Performing Organization Address [facility] de Phone Number [facility] [place] [address] * (ABNORMAL) Comprehensive metabolic panel (05/23/2024 8:33 PM SPECIAL SERVICES COORDINATOR) [facility] Sodium 141 135 - 145 mmol/L Potassium, pl 3.2(L) 3.3 - 4.9 mmol/L [facility] Chloride 105 97 - 110 mmol/L [facility] CO2 25 22 - 32 mmol/L [facility] Anion gap 11 2 - 15 mmol/L [facility] BUN 11 6 - 25 mg/dL [facility] Creatinine 1.03 0.80 - 1.30 mg/dL [facility] Glucose 84 70 - 199 mg/dL [facility] Comment: Interpretive Data Fasting glucose >/= 126 [...] 2022. Calcium 9.0 8.5 - 10.3 mg/dL [facility] Bilirubin, total 1.2 0.1 - 1.2 mg/dL [facility] Protein, pl 7.0 6.5 - 8.5 g/dL [facility] Albumin 4.2 3.5 - 5.0 g/dL [facility] Alk phos 83 40 - 130 Units/L [facility] ALT 15 7 - 55 Units/L [facility] AST 16 10 - 50 Units/L [facility] Blood 05/23/2024 8:33 PM SPECIAL SERVICES COORDINATOR 05/23/2024 9:17 PM SPECIAL SERVICES COORDINATOR us Gonzalez Lamar DO LAB BLOOD ORDERABLES Fin al Result [facility] Department [place] [address] * CT Body Outside Reference (05/23/2024 8:22 PM SPECIAL SERVICES COORDINATOR) Impressions RAD_PACS_[facility] - 05/23/2024 8:22 PM SPECIAL SERVICES COORDINATOR These images are for Reference purposes only and have not been reviewed by [facility] Radiology. There will be no report generated by a [facility] Radiologist. Narrative [facility] - 05/23/2024 8:22 PM SPECIAL SERVICES COORDINATOR EXAMINATION: Images For Reference Purposes Only us Gadiel Ireland MD IMG CT PROCEDURES Final Result RAD_PACS_[facility] * CT Body Outside Consult (05/23/2024 8:18 PM SPECIAL SERVICES COORDINATOR) Anatomical Region Laterality Modality Body N/A Computed Tomogra phy 05/24/2024 8:05 AM SPECIAL SERVICES COORDINATOR Impressions 05/24/2024 8:05 AM SPECIAL SERVICES COORDINATOR 1. Unchanged thoracoabdominal aortic dissection status post [...] images may or may not represent the [place] source data set and thus may contain changes that may lower the accuracy of this second-opinion interpretation. Electronically signed by: Shahrzad Zimmerman M.D. Narrative 05/24/2024 8:05 AM SPECIAL SERVICES COORDINATOR EXAMINATION: RADIOLOGY CONSULTATION ON OUTSIDE IMAGING STUDY STUDY INITIALLY PERFORMED: 05/23/2024 at [facility]. TYPE OF STUDY: Multiple CT images of [...] IMAGING STUDY STUDY INITIALLY PERFORMED: 05/23/2024 at [facility]. TYPE OF STUDY: Multiple CT images of [...] images may or may not represent the [place] source data set and thus may contain changes that may lower the accuracy of this second-opinion interpretation. Electronically signed by: Shahrzad Zimmerman M.D. Gadiel Ireland MD IMG CT PROCEDURES Final Result * POCT glucose (05/23/2024 7:47 PM SPECIAL SERVICES COORDINATOR) Glucose, POC 80 70 - 199 mg/dL Blood 05/23/2024 7:47 PM SPECIAL SERVICES COORDINATOR 05/23/2024 7:47 PM SPECIAL SERVICES COORDINATOR Gonzalez Lamar DO LAB POCT ORDERABLES - DE VICE Final Result [facility] Department [place] [address] * POCT Rapid HIV Antibody Community Screening-[place] Eligible (05/21/2024 7:35 PM SPECIAL SERVICES COORDINATOR) Rapid HIV, POC Negative Negative Lot Number [id number] QC Control Line Acceptable Blood 05/21/2024 7:35 PM SPECIAL SERVICES COORDINATOR Marcus Amaya MD POINT OF CARE TEST ORD ERABLES Final Result * (ABNORMAL) Oxycodone Confirmation, Urine (05/21/2024 5:34 PM SPECIAL SERVICES COORDINATOR) Oxycodone Conf, Ur Confirmed Positive(A) CutOff 50 [...] needed. Performance characteristics were determined by the [facility] in a manner consistent with CLIA requirement and has not been cleared or approved by the U.S. Food and Drug Administration. Current interpretive data was last revised 2020. Urine 05/21/2024 5:34 PM SPECIAL SERVICES COORDINATOR 05/21/2024 5:46 PM SPECIAL SERVICES COORDINATOR Marcus Amaya MD LAB URINE ORDERABLES F inal Result [facility] Department [place] [address] * (ABNORMAL) Fentanyl Confirmation, Urine (05/21/2024 5:34 PM SPECIAL SERVICES COORDINATOR) Fentanyl Conf, Ur Confirmed Positive(A) Cutoff 0.3ng/mL Acetylfentanyl Conf, Ur Does Not Confirm Cutoff 1 ng/mL [facility] Acrylfentanyl Conf, Ur Does Not Confirm Cutoff 1 ng/mL [facility] Furanylfentanyl Conf, Ur Does Not Confirm Cutoff 1 ng/mL [facility] Fentanyl Metabolite (Norfentanyl) Conf, Ur Confirmed Positive(A) CutOff 5 ng/mL [facility] Xylazine MS Does Not Confirm Cutoff 1 ng/mL [facility] Comment: Interpretive Data This test detects the presence or absence of drug compounds using LC Tandem mass spectrometry and is not intended to assess compliance with prescribed medications. While this test is highly specific, false positive and false negative results may occur in very rare circumstances. Contact the laboratory for consultation, if needed. Performance characteristics were determined by the [facility] in a manner consistent with CLIA requirement and has not been cleared or approved by the U.S. Food and Drug Administration. Current interpretive data was last revised 2020. Urine 05/21/2024 5:34 PM SPECIAL SERVICES COORDINATOR 05/21/2024 5:46 PM SPECIAL SERVICES COORDINATOR Marcus Amaya MD LAB URINE ORDERABLES F inal Result [facility] Department [place] [address] * (ABNORMAL) Drugs of Abuse Screen, Urine with Reflex Confirmation (05/21/2024 5:34 PM SPECIAL SERVICES COORDINATOR) Amphetamine, ur Screen Positive, presumptive (A) CutOff 500ng/mL Comment: Interpretive Data - Amphetamines: Samples containing greater than 500 ng/mL d-methamphetamine or other cross-reacting amphetamine compounds are reported as positive. Amphetamine immunoassays are subject to significant false positive rates due to cross-reactivity of non-amphetamine drugs. Confirmatory testing required for definitive results. Current Interpretive Data was last reviewed 2022. Barbiturates, ur Not Detected CutOff 200ng/mL [facility] Comment: Interpretive Data - Barbiturates: Samples containing greater than 200 ng/mL secobarbital or other cross-reacting barbiturate compounds are reported as positive. False positive and false negative results are possible. Confirmatory testing required for definitive results. Current Interpretive Data was last reviewed 2022. Benzodiazepines, ur Screen Positive, presumptive (A) CutOff 100ng/mL [facility] Comment: Interpretive Data - Benzodiazepines: Samples containing greater than 100 ng/mL nordiazepam or other cross-reacting compounds are reported as positive. False positive and false negative results are possible. Confirmatory testing required for definitive results. Current Interpretive Data was last reviewed 2022. Cannabinoids, ur Screen Positive, presumptive (A) CutOff 50 ng/mL [facility] Comment: Interpretive Data - Cannabinoids: Samples containing greater than 50 ng/mL delta-9 THC -COOH or other cross- reacting compounds are reported as positive. False positive and false negative results are possible. Confirmatory testing required for definitive results. Current Interpretive Data was last reviewed 2022. Cocaine, ur Not Detected CutOff 150ng/mL [facility] Comment: Interpretive Data - Cocaine: Samples containing greater than 150 ng/mL benzoylecgonine or other cross- reacting compounds are reported as positive. False positive and false negative results are possible. Confirmatory testing required for definitive results. Current Interpretive Data was last reviewed 2022. Fentanyl, Ur Screen Positive, presumptive (A) CutOff 5 ng/mL [facility] Comment: Interpretive Data - Fentanyl: Samples containing greater than 5 ng/mL norfentanyl, fentanyl, or other cross-reacting fentanyl compounds are reported as positive. False positive and false negative results are possible. Confirmatory testing required for definitive results. Current Interpretive Data was last reviewed 2023. Methadone, ur Not Detected CutOff 300ng/mL [facility] Comment: Interpretive Data - Methadone: Samples containing greater than 300 ng/mL d,l-methadone or other cross-reacting compounds are reported as positive. False positive and false negative results are possible. Confirmatory testing required for definitive results. Current Interpretive Data was last reviewed 2022. Opiates, ur Not Detected CutOff 300ng/mL [facility] Comment: Interpretive Data - Opiates: Samples containing greater than 300 ng/mL morphine or other cross-reacting compounds are reported as positive. False positive and false negative results are possible. Confirmatory testing required for definitive results. Current Interpretive Data was last reviewed 2022. Oxycodone, ur Screen Positive, presumptive (A) CutOff 100ng/mL [facility] Comment: Interpretive Data - Oxycodone: Samples containing greater than 100 ng/mL oxycodone or other cross-reacting compounds are reported as positive. False positive and false negative results are possible. Confirmatory testing required for definitive results. Current Interpretive Data was last reviewed 2022. Phencyclidine, ur Not Detected CutOff 25 ng/mL [facility] Comment: Interpretive Data - Phencyclidine: Samples containing greater than 25 ng/mL phencyclidine or other cross-reacting compounds are reported as positive. False positive and false negative results are possible. Confirmatory testing required for definitive results. Current Interpretive Data was last reviewed 2022. Urine Creatinine 357 mg/dL [facility] Comment: Interpretive Data Urine Creatinine: < 10 mg/dL is extremely dilute = or > 10 but < 20 mg/dL is dilute = or > 20 mg/dL is normal Current Interpretive Data was last revised on 2017. Urine 05/21/2024 5:34 PM SPECIAL SERVICES COORDINATOR 05/21/2024 5:46 PM SPECIAL SERVICES COORDINATOR Narrative [facility] - 05/21/2024 6:16 PM SPECIAL SERVICES COORDINATOR Drug of Abuse screening is performed by immunoassay for medical purposes only. This is not to be used for Pain Management purposes. If Detected, confirmation testing will be performed for Amphetamines, Cocaine, Fentanyl, Methadone, Opiates, Oxycodone or Phencyclidine. us Marcus Amaya MD LAB URINE ORDERABLES F inal Result [facility] Department [place] [address] * (ABNORMAL) Urinalysis reflex to microscopic (05/21/2024 5:34 PM SPECIAL SERVICES COORDINATOR) Color, ur Yellow Yellow Clarity, ur Clear Clear [facility] Specific gravity, ur 1.032(H) 1.003 - 1.030 [facility] pH, urine 6.0 [facility] Comment: Interpretive Data U rine pH is affected by diet, medications, systemic acid-base disturbances, and renal tubular function. pH may affect urinary stone formation. For example, urine pH below 6.0 may help reduce the tendency for calcium phosphate stones and pH greater than 6.0 may reduce the tendency for uric acid stone formation. Source: [facility] Current Interpretive Data was last revised on 2017 Protein, ur ql 2+(A) Negative [facility] Glucose, ur ql Negative Negative [facility] Ketones, ur 1+(A) Negative [facility] Bilirubin, ur Negative Negative [facility] Blood, ur Negative Negative [facility] Urobilinogen, ur <2.0 <2.0 mg/dL [facility] Nitrite, ur Negative Negative [facility] Leukocyte esterase, ur Negative Negative [facility] UA reflex comment Reflex to microscopic UA will be performed. [facility] Urine 05/21/2024 5:34 PM SPECIAL SERVICES COORDINATOR 05/21/2024 5:39 PM SPECIAL SERVICES COORDINATOR Marcus Amaya MD LAB URINE ORDERABLES F inal Result Performing Organization Address [facility] de Phone Number [facility] Department [place] [address] * Amphetamine Confirmation, Urine (05/21/2024 5:34 PM SPECIAL SERVICES COORDINATOR) Amphetamine Conf, Ur Does Not Confirm CutOff [...] needed. Performance characteristics were determined by the [facility] in a manner consistent with CLIA requirement and has not been cleared or approved by the U.S. Food and Drug Administration. Current interpretive data was last revised on 2020. Urine 05/21/2024 5:34 PM SPECIAL SERVICES COORDINATOR 05/21/2024 5:46 PM SPECIAL SERVICES COORDINATOR Marcus Amaya MD LAB URINE ORDERABLES F inal Result Performing Organization Address [facility] Co de Phone Number [facility] Department [place] [address] * (ABNORMAL) Urinalysis, microscopic only (05/21/2024 5:34 PM SPECIAL SERVICES COORDINATOR) WBC, ur 0-5 0 - 5 /HPF RBC, ur 0-2 0 - 2 /HPF [facility] Epithelial cells, squamous, ur 1-5 0 - 5 /HPF [facility] Bacteria, ur Trace(A) [facility] Mucous, ur Present(A) [facility] Hyaline casts, ur 11-20(A) 0 - 10 /LPF [facility] Urine 05/21/2024 5:34 PM SPECIAL SERVICES COORDINATOR 05/21/2024 5:39 PM SPECIAL SERVICES COORDINATOR Marcus Amaya MD LAB URINE ORDERABLES F inal Result Performing Organization Address City/[facility] Co de Phone Number [facility] Department [place] [address] * Sepsis Lactate w/ Reflex (05/21/2024 4:33 PM SPECIAL SERVICES COORDINATOR) Pathologist [facility] Sepsis Lactate 1.9 0.7 - 2.0 mmol/L Blood 05/21/2024 4:33 PM SPECIAL SERVICES COORDINATOR 05/21/2024 4:44 PM SPECIAL SERVICES COORDINATOR Marcus Amaya MD LAB BLOOD ORDERABLES F inal Result Performing Organization Address [facility] de Phone Number [facility] Department [place] [address] * eGFR (05/21/2024 3:41 PM SPECIAL SERVICES COORDINATOR) eGFR 70 >=60 mL/min/1. 73 m2 Comment: [...] last reviewed 2021. Blood 05/21/2024 3:41 PM SPECIAL SERVICES COORDINATOR 05/21/2024 4:03 PM SPECIAL SERVICES COORDINATOR Chelle Elliott MD LAB BLOOD ORDERABLES Final Result [facility] Department [place] [address] * (ABNORMAL) Differential, auto (05/21/2024 3:41 PM SPECIAL SERVICES COORDINATOR) Neutrophil abs 6.9(H) 1.5 - 6.5 K/cumm Imm gran abs 0.0 0.0 - 0.1 K/cumm [facility] Lymphocyte abs 1.5 0.8 - 3.3 K/cumm [facility] Monocyte abs 0.9(H) 0.2 - 0.8 K/cumm [facility] Eosinophil abs 0.0 0.0 - 0.5 K/cumm [facility] Basophil abs 0.0 0.0 - 0.1 K/cumm [facility] Neutrophil pct 73.5 % [facility] Comment: Interpretive Data Percent cell count reference ranges are not reported, since discordance with absolute values may lead to misinterpretation of CBC data. Current Interpretive Data was last revised on 2017. Imm gran pct 0.3 % [facility] Comment: Interpretive Data Percent cell count reference ranges are not reported, since discordance with absolute values may lead to misinterpretation of CBC data. Current Interpretive Data was last revised on 2017. Lymphocyte pct 15.7 % [facility] Comment: Interpretive Data Percent cell count reference ranges are not reported, since discordance with absolute values may lead to misinterpretation of CBC data. Current Interpretive Data was last revised on 2017. Monocyte pct 10.0 % [facility] Comment: Interpretive Data Percent cell count reference ranges are not reported, since discordance with absolute values may lead to misinterpretation of CBC data. Current Interpretive Data was last revised on 2017. Eosinophil pct 0.1 % [facility] Comment: Interpretive Data Percent cell count reference ranges are not reported, since discordance with absolute values may lead to misinterpretation of CBC data. Current Interpretive Data was last revised on 2017. Basophil pct 0.4 % [facility] Comment: Interpretive Data Percent cell count reference ranges are not reported, since discordance with absolute values may lead to misinterpretation of CBC data. Current Interpretive Data was last revised on 2017. Blood 05/21/2024 3:41 PM SPECIAL SERVICES COORDINATOR 05/21/2024 4:06 PM SPECIAL SERVICES COORDINATOR us Chelle Elliott MD LAB BLOOD ORDERABLES Final Result [facility] Department [place] [address] * CBC with auto differential (05/21/2024 3:41 PM SPECIAL SERVICES COORDINATOR) WBC 9.4 3.8 - 9.9 K/cumm Hgb 13.9 13.0 - 17.5 g/dL [facility] Hct 40.0 38.9 - 50.3 % [facility] Plt 291 150 - 400 K/cumm [facility] MPV 9.1 9.1 - 12.3 fL [facility] RBC 4.59 4.30 - 5.80 M/cumm [facility] MCV 87.1 81.3 - 96.4 fL [facility] MCH 30.3 27.1 - 33.3 pg [facility] MCHC 34.8 32.3 - 35.7 g/dL [facility] RDW CV 13.1 11.1 - 14.9 % [facility] RDW SD 41.8 35.7 - 48.1 fL [facility] NRBC abs 0.00 0.00 - 0.01 K/cumm [facility] Blood (Blood, Venous) 05/21/2024 3:41 PM SPECIAL SERVICES COORDINATOR 05/21/2024 4:06 PM SPECIAL SERVICES COORDINATOR us Marcus Amaya MD LAB BLOOD ORDERABLES F inal Result Performing Organization Address City/[facility]/ZIP Co de Phone Number [facility] [place] [address] * Lipase (05/21/2024 3:41 PM SPECIAL SERVICES COORDINATOR) Pathologist [facility] Lipase 15 10 - 99 Units/L Blood (Blood, Venous) 05/21/2024 3:41 PM SPECIAL SERVICES COORDINATOR 05/21/2024 4:03 PM SPECIAL SERVICES COORDINATOR Marcus Amaya MD LAB BLOOD ORDERABLES F inal Result Performing Organization Address [facility] de Phone Number [facility] [place] [address] * (ABNORMAL) Comprehensive metabolic panel (05/21/2024 3:41 PM SPECIAL SERVICES COORDINATOR) [facility] Sodium 136 135 - 145 mmol/L Potassium, pl 3.6 3.3 - 4.9 mmol/L [facility] Chloride 99 97 - 110 mmol/L [facility] CO2 22 22 - 32 mmol/L [facility] Anion gap 15 2 - 15 mmol/L [facility] BUN 22 6 - 25 mg/dL [facility] Creatinine 1.37(H) 0.80 - 1.30 mg/dL [facility] Glucose 92 70 - 199 mg/dL [facility] Comment: Interpretive Data Fasting glucose >/= 126 [...] 8.5 - 10.3 mg/dL [facility] Bilirubin, total 1.5(H) 0.1 - 1.2 mg/dL [facility] Protein, pl 8.5 6.5 - 8.5 g/dL [facility] Albumin 5.1(H) 3.5 - 5.0 g/dL [facility] Alk phos 99 40 - 130 Units/L [facility] ALT 19 7 - 55 Units/L [facility] AST 21 10 - 50 Units/L [facility] Blood 05/21/2024 3:41 PM SPECIAL SERVICES COORDINATOR 05/21/2024 4:03 PM SPECIAL SERVICES COORDINATOR us Marcus Amaya MD LAB BLOOD ORDERABLES F inal Result [facility] Department [place] [address] * ECG 12-LEAD (05/21/2024 2:24 PM SPECIAL SERVICES COORDINATOR) Narrative [facility] - 05/21/2024 2:24 PM SPECIAL SERVICES COORDINATOR Huy Mack MD 05/21/2024 2:27 PM ECG [...] ECG ORDERABLES Final Result Performing Organization Address [facility] de Phone Number [facility] * ECG 12-LEAD (05/19/2024 11:55 PM SPECIAL SERVICES COORDINATOR) Narrative [facility] - 05/19/2024 11:55 PM SPECIAL SERVICES COORDINATOR Deniz Huitron MD 05/19/2024 11:56 PM ECG [...] ECG ORDERABLES Final Result Performing Organization Address [facility] de Phone Number [facility] * XR Chest PA Lateral 2 Views (05/19/2024 10:34 PM SPECIAL SERVICES COORDINATOR) Anatomical Region Laterality Modality Body, Chest N/A Computed Radiogr aphy 05/19/2024 10:4 3 PM SPECIAL SERVICES COORDINATOR Impressions 05/20/2024 9:03 AM SPECIAL SERVICES COORDINATOR Comparison is made to 07/05/2023. Thoracic aorta [...] Collins Wills M.D. Narrative 05/20/2024 9:03 AM SPECIAL SERVICES COORDINATOR EXAMINATION: 2 view chest radiograph Procedure Note [...] CTA Chest Abdomen Pelvis (05/19/2024 10:20 PM SPECIAL SERVICES COORDINATOR) Anatomical Region Laterality Modality Body N/A Computed Tomogra phy 05/19/2024 10:5 1 PM SPECIAL SERVICES COORDINATOR Impressions 05/20/2024 9:06 AM SPECIAL SERVICES COORDINATOR 1. Unchanged thoracoabdominal aortic dissection status post [...] Collins Wills M.D. Narrative 05/20/2024 9:06 AM SPECIAL SERVICES COORDINATOR EXAMINATION: CT ANGIOGRAPHY OF THE CHEST, ABDOMEN [...] (baseline, 2hr, 4hr, 6hr) (05/19/2024 9:12 PM SPECIAL SERVICES COORDINATOR) Pathologist [facility] Trop I hs 4 <=35 ng/L Comment: Interpretive Data For further hscTnI resources including the diagnostic algorithm and an aid in interpretation, copy and paste this link: https://bjhlab.testcatalog.org/show/[email or web address] Current Interpretive Data last revised 2019. Blood 05/19/2024 9:12 PM SPECIAL SERVICES COORDINATOR 05/19/2024 9:28 PM SPECIAL SERVICES COORDINATOR Cristobal Waldrop MD LAB BLOOD ORDERABLE S Final Result [facility] Department [place] [address] * eGFR (05/19/2024 9:12 PM SPECIAL SERVICES COORDINATOR) eGFR 85 >=60 mL/min/1. 73 m2 Comment: [...] last reviewed 2021. Blood 05/19/2024 9:12 PM SPECIAL SERVICES COORDINATOR 05/19/2024 9:28 PM SPECIAL SERVICES COORDINATOR Cristobal Waldrop MD LAB BLOOD ORDERABLE S Final Result [facility] Department [place] [address] * (ABNORMAL) Differential, auto (05/19/2024 9:12 PM SPECIAL SERVICES COORDINATOR) Neutrophil abs 7.6(H) 1.5 - 6.5 K/cumm Imm gran abs 0.1 0.0 - 0.1 K/cumm [facility] Lymphocyte abs 0.9 0.8 - 3.3 K/cumm [facility] Monocyte abs 0.5 0.2 - 0.8 K/cumm [facility] Eosinophil abs 0.0 0.0 - 0.5 K/cumm [facility] Basophil abs 0.0 0.0 - 0.1 K/cumm [facility] Neutrophil pct 84.3 % [facility] Comment: Interpretive Data Percent cell count reference ranges are not reported, since discordance with absolute values may lead to misinterpretation of CBC data. Current Interpretive Data was last revised on 2017. Imm gran pct 0.7 % [facility] Comment: Interpretive Data Percent cell count reference ranges are not reported, since discordance with absolute values may lead to misinterpretation of CBC data. Current Interpretive Data was last revised on 2017. Lymphocyte pct 9.4 % [facility] Comment: Interpretive Data Percent cell count reference ranges are not reported, since discordance with absolute values may lead to misinterpretation of CBC data. Current Interpretive Data was last revised on 2017. Monocyte pct 5.3 % [facility] Comment: Interpretive Data Percent cell count reference ranges are not reported, since discordance with absolute values may lead to misinterpretation of CBC data. Current Interpretive Data was last revised on 2017. Eosinophil pct 0.1 % [facility] Comment: Interpretive Data Percent cell count reference ranges are not reported, since discordance with absolute values may lead to misinterpretation of CBC data. Current Interpretive Data was last revised on 2017. Basophil pct 0.2 % [facility] Comment: Interpretive Data Percent cell count reference ranges are not reported, since discordance with absolute values may lead to misinterpretation of CBC data. Current Interpretive Data was last revised on 2017. Blood 05/19/2024 9:12 PM SPECIAL SERVICES COORDINATOR 05/19/2024 9:28 PM SPECIAL SERVICES COORDINATOR us Cristobal Waldrop MD LAB BLOOD ORDERABLE S Final Result [facility] Department [place] [address] * CBC with auto differential (05/19/2024 9:12 PM SPECIAL SERVICES COORDINATOR) WBC 9.0 3.8 - 9.9 K/cumm Hgb 13.7 13.0 - 17.5 g/dL [facility] Hct 39.7 38.9 - 50.3 % [facility] Plt 293 150 - 400 K/cumm [facility] MPV 9.2 9.1 - 12.3 fL [facility] RBC 4.53 4.30 - 5.80 M/cumm [facility] MCV 87.6 81.3 - 96.4 fL [facility] MCH 30.2 27.1 - 33.3 pg [facility] MCHC 34.5 32.3 - 35.7 g/dL [facility] RDW CV 13.2 11.1 - 14.9 % [facility] RDW SD 42.5 35.7 - 48.1 fL [facility] NRBC abs 0.00 0.00 - 0.01 K/cumm [facility] Blood 05/19/2024 9:12 PM SPECIAL SERVICES COORDINATOR 05/19/2024 9:28 PM SPECIAL SERVICES COORDINATOR us Cristobal Waldrop MD LAB BLOOD ORDERABLE S Final Result Performing Organization Address [facility] de Phone Number [facility] [place] [address] * aPTT (05/19/2024 9:12 PM SPECIAL SERVICES COORDINATOR) aPTT 34 28 - 38 sec Comment: Interpretive Data Heparin therapeutic range: 66.0 - 100.0 seconds. Range based on correlation with therapeutic heparin activity range of 0.3 - 0.7 Units/mL. Current interpretive data was last revised on 2023. Blood 05/19/2024 9:12 PM SPECIAL SERVICES COORDINATOR 05/19/2024 9:32 PM SPECIAL SERVICES COORDINATOR us Cristobal Waldrop MD LAB BLOOD ORDERABLE S Final Result Performing Organization Address [facility] de Phone Number [facility] [place] [address] * (ABNORMAL) Protime-INR (05/19/2024 9:12 PM SPECIAL SERVICES COORDINATOR) PT 14.2(H) 9.7 - 13.0 sec INR 1.31(H) 0.90 - 1.20 [facility] Comment: Interpretive data Oral anticoagulant therapeutic ranges: Venous thromboembolism prophylaxis or treatment: 2.0-3.0 CARDIOLOGY Standard range: 2.0-3.0 High-intensity range: 2.5-3.5 Refer to indication-specific guidelines for appropriate target ranges for prosthetic heart valve replacement. Current interpretive data was last revised on 2019. Blood 05/19/2024 9:12 PM SPECIAL SERVICES COORDINATOR 05/19/2024 9:32 PM SPECIAL SERVICES COORDINATOR Cristobal Waldrop MD LAB BLOOD ORDERABLE S Final Result Performing Organization Address City/[facility] Co de Phone Number [facility] Department [place] [address] * Type and screen (05/19/2024 9:12 PM SPECIAL SERVICES COORDINATOR) [facility] Ellen, indirect Negative ABO Rh A Positive [facility] Blood 05/19/2024 9:12 PM SPECIAL SERVICES COORDINATOR 05/19/2024 9:22 PM SPECIAL SERVICES COORDINATOR Narrative [facility] - 05/19/2024 10:07 PM SPECIAL SERVICES COORDINATOR Has the patient had Daratumumab or Isatuximab in the past 6 months?->Unknown Cristobal Waldrop MD LAB BLOOD BANK TEST ORDERABLES Final Result Performing Organization Address [facility] Co de Phone Number [facility] [place] [address] * (ABNORMAL) Comprehensive metabolic panel (05/19/2024 9:12 PM SPECIAL SERVICES COORDINATOR) [facility] Sodium 139 135 - 145 mmol/L Potassium, pl 3.9 3.3 - 4.9 mmol/L [facility] Chloride 100 97 - 110 mmol/L [facility] CO2 21(L) 22 - 32 mmol/L [facility] Anion gap 18(H) 2 - 15 mmol/L [facility] BUN 18 6 - 25 mg/dL [facility] Creatinine 1.17 0.80 - 1.30 mg/dL [facility] Glucose 108 70 - 199 mg/dL [facility] Comment: Interpretive Data Fasting glucose >/= 126 [...] Calcium 10.2 8.5 - 10.3 mg/dL [facility] Bilirubin, total 1.2 0.1 - 1.2 mg/dL [facility] Protein, pl 8.7(H) 6.5 - 8.5 g/dL [facility] Albumin 5.1(H) 3.5 - 5.0 g/dL [facility] Alk phos 105 40 - 130 Units/L [facility] ALT 23 7 - 55 Units/L [facility] AST 18 10 - 50 Units/L [facility] Blood 05/19/2024 9:12 PM SPECIAL SERVICES COORDINATOR 05/19/2024 9:28 PM SPECIAL SERVICES COORDINATOR us Cristobal Waldrop MD LAB BLOOD ORDERABLE S Final Result [facility] [place] [address] * Hepatitis C antibody Blood (09/06/2023 11:15 AM CDT) Hep C Ab Nonreactive Nonreactive Comment:Antibodies to HCV no t detected. Does NOT exclude the possibility of recent exposure to HCV. Current interpretive data was last revised on 22 Blood 09/06/2023 11:1 5 AM CDT 09/06/2023 11:34 AM CDT us Clyde Nelson MD LAB MICROBIOLOGY - GENERAL SHAUNA LOPEZ Edited Result - Final [facility] [place] [address] from Last 3 Months or Most Recently Relevant to Health Maintenance Insurance [employer] [facility] [employer] [facility] Advance Directives For more information, please contact: [phone] * Full Code (Latest Code Status on [...] [facility]on [facility] Health Care Agent Care Teams Manual Tester Relationship Specialty Start Date End Date [employer] [address] [place] [address] PCP - General Physician Sound Technician Supervisor 06/14/24 Leo Manzano MD [id number] [place] [address] Surgeon Vascular Surgery 05/16/23
--- OUTSIDE RECORDS SUMMARY | 2024-07-08 12:14 | XMS_ITS | Clinical Summary ---
Author Organization [facility] Address [address] [place] [address] Care Team Providers Care It Lead Name Role Phone Unavailable Primary Care Provider Unavailabl e Source Comments [facility],non-owned Affiliates and Associated Physician Practices is amultiple site organization consisting of ambulatory clinics and hospital sitesin [place], [place], [place] and [place]. This disclosure is being madepursuant to the Care Everywhere program and may not contain all information available regarding this patient. Last updated 18.[facility] Social History Tobacco Use Types Packs/Day Years [...]
[2024-07-08 12:24] VITALS: BP 112/79; PULSE 67; RESP 18; TEMP 36.9; O2SAT 97
[2024-07-08 12:31] LABS: Alanine Aminotransferase 13 U/L (16-63); Albumin Level 3.7 g/dL (3.4-5.0); Alkaline Phosphatase 103 U/L (46-116); Anion Gap 12 mmol/L (4-12); Aspartate Amino Transferase < 10 U/L (15-37); Bilirubin,Total 0.6 mg/dL (0.00-1.00); Blood Urea Nitrogen 19 mg/dL (7-18); CRP 3.3 mg/dL (0.0-0.9); Calcium 8.7 mg/dL (8.5-10.1); Carbon Dioxide 23 mmol/L (21-32); Chloride 104 mmol/L (98-108); Estimated CRCL calculation 82 ml/min; Estimated Glomerular Filt Rate > 60; Glucose 95 mg/dL (70-99); Lipase 13 U/L (16-77); Magnesium 1.8 mg/dL (1.8-2.4); Osmolality Calculated 290 mOsm/kg (285-295); Potassium 3.9 mmol/L (3.5-5.1); Sodium 139 mmol/L (136-145); Total Protein 7.8 g/dL (6.4-8.2)
[2024-07-08 12:32] LABS: Lactic Acid Reflex 0.5 mmol/L (0.4-2.0)
[2024-07-08 12:37] LABS: Troponin I < 4.0 ng/L (0.00-60.4)
[2024-07-08 13:21] VITALS: BP 133/63; PULSE 85; RESP 16; TEMP 36.7; O2SAT 97
[2024-07-08] MEDS: MORPHINE SULFATE (*CRX) 2 MG/ML INJ IV PUSH (13:27)
[2024-07-08 13:53] LABS: Add Urine Microscopic? NO; Appearance Urine Clear (Clear); Bilirubin Urine Negative (Negative); Blood Urine Negative (Negative); Color Urine Yellow (Yellow); Glucose Urine UA Negative (Negative); Ketones Urine Negative (Negative); Leukocyte Esterase Ur Negative LEU/UL (Negative); Nitrate Urine Negative (Negative); Protein Urine Negative (Negative); Specific Grav Ur 1.015 (1.010-1.020); Urobilinogen Urine 0.2 mg/dL (0.2-1.0); pH Urine 5.5 (5.0-8.0)
[2024-07-08] MEDS: cefTRIAXone 2 GM/NS 100 ML 2 GM/100 ML BAG IVPB (14:12)
[2024-07-08] MEDS: AZITHROMYCIN 250 MG TABLET 500 MG PO (14:12)
[2024-07-08 15:19] VITALS: BP 148/89; PULSE 58; RESP 18; TEMP 36.4; O2SAT 99
== END 2024-07-08 15:20 | disposition home or self-care (01) ==
PROVIDERS: Emergency Provider Family Medicine; PCP Physician Assistant Medical
DX: J10.00 Influenza due to other identified influenza virus with unspecified type of pneumonia (principal); F12.90 Cannabis use, unspecified, uncomplicated
CPT/HCPCS: 36415; 71275; 80053; 81003; 83605; 83690; 83735; 84484; 85025; 86140; 93005; 96361; 96365; 96375; 96376; 99284; A9270; J0696; J2270; J2405; J7030; Q9967